=== PATIENT | male | born 1940 | race Caucasian/White ===

== ENCOUNTER 2020-03-09 20:13 | Observation (INO) | payer OTHER ==
--- OUTSIDE RECORDS SUMMARY | 2020-03-09 20:16 | XMS REPORT ---
:1939 Author Organization [facility] t Address 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 involving involving [place] ag[place]agux coronary 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[place] heart, heart, angina angina presence presence unspecified unspecified S/P S/P Problem Active coronary coronary artery artery stent stent placement placement Uncontrolle Uncontrolle Problem Active 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 Medications Ordered Filled Start Stop Current Ordering Indication Dosage Frequency Signature Comments Components Medication Medication Date Date Medication? Clinician (SIG) Name Name Potassium Potassium Yes Anneliese 1 capsule Chloride Chloride Millender with food Tylenol # 3 Tylenol # 3 Yes Anneliese one tab Millender Vitamin D-3 Vitamin D-3 Yes Anneliese 2 capsul e Millender Humalog Humalog Yes Anneliese as Millender directed Aspir-Low Aspir-Low Yes Anneliese 1 tablet Millender Namzaric Namzaric Yes Anneliese 1 Millender Zyprexa Zyprexa Yes Anneliese 1 tablet Millender Vitamin B-1 Vitamin B-1 Yes Anneliese 1 tablet Millender Multivitami Multivitami Yes Anneliese as n n Millender directed Lantus Lantus Yes Anneliese as Millender directed Lasix Lasix Yes Anneliese 1 tablet Millender Isosorbide Isosorbide Yes Anneliese 1 tablet Mononitrate Mononitrate Millender in t he morning Lyrica Lyrica Yes Anneliese 1 capsule Millender Encounters Start End Encounter Admission Attending Care Care Encounter Date/Time Date/Time Type Type Clinicians Facility Department ID 2019-10-07 2019-10-07 Outpatient Stalin Gant [id number] 10:48:00 10:48:00 [facility] 2019-10-05 2019-10-05 Outpatient Brazkenna Connellt [id number] 16:06:00 16:06:00 [facility] 2019-07-12 2019-07-12 Outpatient Brazjulianot Brazjulianot [id number] 16:24:00 16:24:00 [facility] 2019-07-06 2019-07-06 Outpatient Brazjulianot Brazjulianot 2 [id number] 14:00:00 14:00:00 [facility]
--- OUTSIDE RECORDS SUMMARY | 2020-03-09 20:16 | XMS REPORT ---
:1939 Author Organization eClinicalWorks Care Team Providers Name Role Phone Anneliese Batista Provider Role Unavailable Allergies, Adverse Reactions, Alerts Substance Reaction Event Type N.K.D.A. Info Not Available Non Drug Allergy Problems Problem Type Condition Code Onset Dates Condition Statu s Problem Routine eye exam Z01.00 Active Problem On home oxygen therapy Z99.81 Activ e Problem Coronary artery disease involving I25.10 Active [place] coronary artery of [place] heart, angina presence unspecified Problem History of prostate cancer Z85.46 A ctive Assessment Blurry vision, bilateral H53.8 Act stefany Problem Alzheimer disease G30.9 Active Assessment Routine eye exam Z01.00 Active Assessment Need for dental care Z91.89 Active Problem Diabetes E11.9 Active Problem Heart disease I51.9 Active Problem Heart attack I21.3 Active Problem Blurry vision, bilateral H53.8 Act stefany Problem Chronic pain syndrome G89.4 Active Assessment Uncontrolled type 2 diabetes E11.65 Active mellitus with hyperglycemia Assessment On home oxygen therapy Z99.81 Activ e Assessment History of prostate cancer Z85.46 A ctive Assessment Chronic pain syndrome G89.4 Active Problem S/P coronary artery stent placement Z95.5 Active Assessment S/P coronary artery stent placement Z95.5 Active Problem Uncontrolled type 2 diabetes E11.65 Active mellitus with hyperglycemia Assessment Coronary artery disease involving I25.10 Active [place] coronary artery of [place] heart, angina presence unspecified Problem Need for dental care Z91.89 Active Medications Medication Code Code Instructions Start End Status Dosage System Date Date Potassium NDC 61993553779 10 MEQ Orally Active 1 ca psule Chloride Twice a day with food Tylenol # 3 NDC 0 300/30mg PO BID Active [place] [address] 1000 UNIT Active 2 caps ule Orally Once a day Humalog ND 13905136246 100 UNIT/ML Active as direc diamante Subcutaneous 10 units with each meal (3x daily) Aspir-Low ND 57131475844 81 MG Orally Active 1 tab let Once a day Namzaric ND 80478674697 28 mg/10 mg Active 1 Orally daily Zyprexa [facility] 09546196311 2.5 MG Orally Active 1 tabl et Once a day Vitamin B-1 [facility] 13246646626 100 MG Orally Active 1 tablet Once a day Multivitamin [facility] [address]99-20139 - Orally Active as dir ected Lantus [facility] 86582099026 100 UNIT/ML Active as direc diamante Subcutaneous 40 units once daily Lasix [facility] 38075788829 40 MG Orally Active 1 table t Once a day Isosorbide [facility] 88638689316 60 MG Orally Active 1 ta blet in Mononitrate Once a day the morni ng Lyrica [facility] 98281934164 150 MG Orally Active 1 caps ule Once a day Results No Known Results Summary Purpose eClinicalWorks Submission
--- OUTSIDE RECORDS SUMMARY | 2020-03-09 20:16 | XMS REPORT | Summary of Care ---
:1939 Author Organization [facility] - Health Address [address] [place] [address] Care Team Providers Name Role Phone Unavailable Primary Care Provider Unavailable Encounter Details Date Type Department Care Team Description 07/12/2019 Orders Only [facility] Doctor Unassigned, [address] [facility] [place] [address] [address] [place] [address] Allergies No Known Allergiesdocumented as of this encounter (statuses as of 07/21/2019) Medications Medication Sig Dispensed Refills Start Date End Date Status memantine-donepezil Take 1 capsule by 0 Active (NAMZARIC) 28-10 mg mouth daily. CSpX enoxaparin injection inject 30 mg under 0 Active the skin. folic acid/vit B Take by mouth. 0 Active complex and C (B COMPLEX-VITAMIN C-FOLIC ACID ORAL) potassium chloride Take 20 mEq by mouth 0 Active 20 mEq packet daily. Cholecalciferol, Take by mouth. 0 Active Vitamin D3, 2,000 unit capsule metoprolol tartrate Take 12.5 mg by 0 Active 12.5 mg mouth 2 (two) times daily. MULTIVITAMIN ORAL Take by mouth. 0 Active thiamine (VITAMIN Take 100 mg by mouth 0 Active B-1) 100 mg tablet daily. aspirin 81 mg Take 81 mg by mouth 0 Active chewable tablet daily. atorvastatin 40 mg Take 40 mg by mouth 0 Active tablet at bedtime. furosemide 40 mg Take 40 mg by mouth 0 Active tablet daily. NaCl 0.9% (NS) Soln Inject 10 mL 0 Active 10 mL with sodium intravenously once chloride 2.5 mEq/mL now. SolP 17.125 mEq Insulin Glargine 100 inject 18-24 Units 0 03/25/2019 Active unit/mL (3 mL) under the skin every injectionIndications morning. : Uncontrolled type 2 diabetes mellitus with hyperglycemia insulin lispro, inject 4 Units under 0 03/25/2019 Active human, 100 unit/mL the skin 3 (three) injectionIndications times daily before : Uncontrolled type meals. 2 diabetes mellitus with hyperglycemia documented as of this encounter (statuses as of 07/21/2019) Active Problems Problem Noted Date CHF exacerbation 01/02/2019 Essential hypertension 01/02/2019 Type 2 diabetes mellitus without complication, without long-term current 01/02/2019 use of insulin Acute on chronic systolic CHF (congestive heart failur e) 12/13/2018 Elevated troponin I level 12/12/2018 DE LA CRUZ (dyspnea on exertion) 12/12/2018 Coronary artery disease involving [place] coronary ailin ry of [place] heart 12/12/2018 with angina pectoris Stage 3 chronic kidney disease 12/12/2018 NSTEMI (non-ST elevated myocardial infarction) 019 Diabetic polyneuropathy associated with type 2 diabete s mellitus 02/23/2017 documented as of this encounter (statuses as of 07/21/2019) Social History Tobacco Use Types Packs/Day Years Used Date Former Smoker Smokeless Tobacco: Never Used Alcohol Use Drinks/Week oz/Week Comments No Sex Assigned at Date Recorded Not on file Job Start Date Occupation Industry Not on file Not on file Not on file Travel History Travel Start Travel End No recent travel history available. documented as of this encounter Last Filed Vital Signs Not on filedocumented in this encounter Plan of Treatment Date Type Specialty Care Team Description 11/02/2019 Office Visit Endocrinology Diabetes & Mal Larsen MD Metabolism [address] [place], [place] [id number] Health Maintenance Due Date Last Done Comments EYE EXAM 1950 LDL-C 1950 URINE MICROALBUMIN 1949 DTaP,Tdap,and Td Vaccines (1 - 1958 Tdap) Zoster Recombinant Vaccine 1989 (SHINGRIX) (1 of 2) Medicare Wellness Visit 2004 PNEUMOCOCCAL VACCINES 65+ (1 of 2 2004 - PCV13) INFLUENZA VACCINE (Retired 07/17/2019 version) HgA1C 09/25/2019 03/25/2019, 12/11/2018 LUNG CANCER SCREEN: Recommended 12/12/2019 12/12/2018 for age 55-80 with 30 + pack year history CREATININE (SERUM) 01/03/2020 01/03/2019, 01/02/2019, 12/13/2018, Additional history exists FOOT EXAM 01/22/2020 01/21/2019, 01/21/2019, 12/24/2018, Additional history exists documented as of this encounter Procedures Procedure Name Priority Date/Time Associated Diagnosis Comme nts AUTHORIZATION FOR RELEASE Routine 07/12/2019 12:01 AM OF PHI CDT documented in this encounter Results Not on filedocumented in this encounter Insurance Payer Benefit Plan / Subscriber ID Effective Phone Address T ype Group Dates [facility] [id number] 2019-Pres [facility] - HEALTHCARE ent Adv HM O MANAGED DUAL COMPLETE MEDICARE HMO MEDICARE MEDICARE PART xxxxxxxxxxx 2004-Pres [phone] Medicare A & B ent [id number] [place] [id number] [facility] MEDICAID OF xxxxxxxxx 2018-Pres [phone] [address] [facility] ent [id number] [place] [address] documented as of this encounter
--- OUTSIDE RECORDS SUMMARY | 2020-03-09 20:17 | XMS REPORT ---
:1939 Author Organization eClinicalWorks Care Team Providers Name Role Phone Lester Anneliese Provider Role Unavailable Allergies No Known Allergies Problems Problem Type Condition Code Onset Dates Condition Statu s Problem Routine eye exam Z01.00 Active Problem On home oxygen therapy Z99.81 Activ e Problem Coronary artery disease involving I25.10 Active [place] coronary artery of [place] heart, angina presence unspecified Problem S/P coronary artery stent placement Z95.5 Active Problem Uncontrolled type 2 diabetes E11.65 Active mellitus with hyperglycemia Problem Need for dental care Z91.89 Active Problem History of prostate cancer Z85.46 A ctive Problem Alzheimer disease G30.9 Active Problem Diabetes E11.9 Active Problem Heart disease I51.9 Active Problem Heart attack I21.3 Active Problem Blurry vision, bilateral H53.8 Act stefany Problem Chronic pain syndrome G89.4 Active Medications No Known Medications Results No Known Results Summary Purpose eClinicalWorks Submission
--- OUTSIDE RECORDS SUMMARY | 2020-03-09 20:17 | XMS REPORT | Summary of Care ---
:1939 Author Organization [facility] Address [address] [place] [address] Care Team Providers Name Role Phone Unavailable Primary Care Provider Unavailable Reason for Visit Reason Comments Refill Request Encounter Details Date Type Department Care Team Description 07/27/2019 Refill [facility] Endocrinology- Kathrin Larsen MD Refill Request [address] Professional Office [place] [id number] [place] [address] [address] [place] [address] Allergies No Known Allergiesdocumented as of this encounter (statuses as of 07/27/2019) Medications Medication Sig Dispensed Refills Start Date End Date Status memantine-donepezi Take 1 capsule by 0 Active l (NAMZARIC) 28-10 mouth daily. mg CSpX enoxaparin inject 30 mg under 0 Active injection the skin. folic acid/vit B Take by mouth. 0 Active complex and C (B COMPLEX-VITAMIN C-FOLIC ACID ORAL) potassium chloride Take 20 mEq by 0 Active 20 mEq packet mouth daily. Cholecalciferol, Take by mouth. 0 Active Vitamin D3, 2,000 unit capsule metoprolol Take 12.5 mg by 0 Act stefany tartrate 12.5 mg mouth 2 (two) times daily. MULTIVITAMIN ORAL Take by mouth. 0 Active thiamine (VITAMIN Take 100 mg by 0 Active B-1) 100 mg tablet mouth daily. aspirin 81 mg Take 81 mg by 0 Ac tive chewable tablet mouth daily. atorvastatin 40 mg Take 40 mg by 0 Active tablet mouth at bedtime. furosemide 40 mg Take 40 mg by 0 Active tablet mouth daily. NaCl 0.9% (NS) Inject 10 mL 0 Ac tive Soln 10 mL with intravenously once sodium chloride now. 2.5 mEq/mL SolP 17.125 mEq insulin lispro, inject 4 Units 0 03/25/2019 Active human, 100 unit/mL under the skin 3 injectionIndicatio (three) times ns: Uncontrolled daily before type 2 diabetes meals. mellitus with hyperglycemia Insulin Glargine inject 30 Units 15 mL 1 07/27/2019 Active 100 unit/mL (3 mL) under the skin injectionIndicatio every morning. ns: Uncontrolled type 2 diabetes mellitus with hyperglycemia Insulin Glargine inject 18-24 Units 0 03/25/201910/05 Discontinued 100 unit/mL (3 mL) under the skin 19 injectionIndicatio every morning. ns: Uncontrolled type 2 diabetes mellitus with hyperglycemia documented as of this encounter (statuses as of 07/27/2019) Active Problems Problem Noted Date CHF exacerbation 01/02/2019 Essential hypertension 01/02/2019 Type 2 diabetes mellitus without complication, without long-term current 01/02/2019 use of insulin Acute on chronic systolic CHF (congestive heart failur e) 12/13/2018 Elevated troponin I level 12/12/2018 DE LA CRUZ (dyspnea on exertion) 12/12/2018 Coronary artery disease involving [place] coronary ailin ry of [place] heart 12/12/2018 with angina pectoris Stage 3 chronic kidney disease 12/12/2018 NSTEMI (non-ST elevated myocardial infarction) 019 Diabetic polyneuropathy associated with type 2 diabete s mellitus 02/23/2017 documented as of this encounter (statuses as of 07/27/2019) Social History Tobacco Use Types Packs/Day Years [...] Description 11/02/2019 Office Visit Endocrinology Diabetes & Larsen, We ntong, MD Metabolism [address] [place] [address] [phone] Health Maintenance Due Date Last Done Comments EYE EXAM 1949 LDL-C 1949 URINE MICROALBUMIN 1949 DTaP,Tdap,and Td Vaccines (1 - 1958 Tdap) Zoster Recombinant Vaccine 1989 (SHINGRIX) (1 of 2) Medicare Wellness Visit 2004 PNEUMOCOCCAL VACCINES 65+ (1 of 2 2004 - PCV13) INFLUENZA VACCINE (#1) 2019 HgA1C 09/25/2019 03/25/2019, 12/11/2018 LUNG CANCER SCREEN: Recommended 12/12/2019 12/12/2018 for age 55-80 with 30 + pack year history CREATININE (SERUM) 01/03/2020 01/03/2019, 01/02/2019, 12/13/2018, Additional history exists FOOT EXAM 01/22/2020 01/21/2019, 01/21/2019, 12/24/2018, Additional history exists documented as of this encounter Results Not on filedocumented in this encounter Visit Diagnoses Diagnosis Uncontrolled type 2 diabetes mellitus wi th hyperglycemia documented in this encounter Insurance Payer Benefit Plan / Subscriber ID Effective Phone Address T e Group [facility] [id number] 2019-Pres [facility] - HEALTHCARE ent Adv HM O MANAGED DUAL COMPLETE MEDICARE HMO MEDICARE MEDICARE PART xxxxxxxxxxx 2004-Pres [phone] Medicare A & B ent [id number] [place] [phone] [facility] MEDICAID OF xxxxxxxxx 2018-Pres [phone] [address] Medi caid [place] ent [id number] [place] [address] documented as of this encounter
--- OUTSIDE RECORDS SUMMARY | 2020-03-09 20:17 | XMS REPORT ---
:1939 Author Organization eClinicalWorks Care Team Providers Name Role Phone Lester Anneliese Provider Role Unavailable Allergies No Known Allergies Problems Problem Type Condition Code Onset Dates Condition Statu s Problem Routine eye exam Z01.00 Active Problem On home oxygen therapy Z99.81 Activ e Problem Coronary artery disease involving I25.10 Active [place] coronary artery of [place] heart, angina presence unspecified Problem S/P coronary [...]
--- OUTSIDE RECORDS SUMMARY | 2020-03-09 20:19 | XMS REPORT | Summary of Care ---
:1939 Author Organization [facility] - Health Address [address] [place] [address] Care Team Providers Name Role Phone MD Trang Primary Care Provider Reason for Visit Reason Comments Transition Of Care Encounter Details Date Type Department Care Team Description 01/18/2020 Transition of Care [facility] Ana M Harvey, policy intern Of Care Health [facility] [address] [place] [address] Allergies No Known Allergiesdocumented as of this encounter (statuses as of 01/18/2020) Medications Medication Sig Dispensed Refills Start Date End Date Status memantine-donepezil Take 1 capsule by 0 Active (NAMZARIC) 28-10 mg mouth daily. CSpX folic acid/vit B Take by mouth. 0 [...] by mouth 0 Active tablet at bedtime. NaCl 0.9% (NS) Soln Inject 10 mL 0 Active 10 mL with sodium intravenously once chloride 2.5 mEq/mL now. SolP 17.125 mEq insulin lispro, inject 4 Units 0 03/25/2019 Active human, 100 unit/mL under the skin 3 injectionIndications (three) times daily : Uncontrolled type before meals. 2 diabetes mellitus with hyperglycemia Insulin Glargine 100 inject 30 Units 15 mL 1 07/27/2019 Active unit/mL (3 mL) under the skin injectionIndications every morning. : Uncontrolled type 2 diabetes mellitus with hyperglycemia magnesium oxide 420 Take 400 mg by 30 tablet 0 09/07/2019 Active mg TabIndications: mouth daily. Elevated troponin furosemide 40 mg Take 1 tablet by 30 tablet 0 09/10/2019 Active tabletIndications: mouth daily. Elevated troponin ranolazine 500 mg 12 Take 1 tablet by 60 tablet 0 01/17/2020 0 02/16/2020 Active hr mouth every 12 tabletIndications: (twelve) hours for Chest pain, 30 days. 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 01/16/2020 Left lower lobe pneumonia 09/21/2019 PNA (pneumonia) 09/09/2019 Acute on chronic combined systolic and diastolic conge stive heart failure 09/09/2019 Dyspnea 09/07/2019 CHF exacerbation 01/02/2019 Essential hypertension 01/02/2019 Type 2 diabetes mellitus without complication, without long-term current 01/02/2019 use of insulin Acute on chronic systolic CHF (congestive heart failur e) 12/13/2018 Elevated troponin I level 12/12/2018 DE LA CRUZ (dyspnea on exertion) 12/12/2018 Coronary artery disease involving [place] coronary ailin ry of [place] heart 12/12/2018 with angina pectoris Stage 3 chronic kidney disease 12/12/2018 NSTEMI (non-ST elevated myocardial infarction) 019 Diabetic polyneuropathy associated with type 2 diabete s mellitus 02/23/2017 documented as of this encounter (statuses as of 01/18/2020) Immunizations Name Administration Dates Next Due Influenza Virus Vaccine 09/09/2018 Pneumococcal Polysaccharide, PPSV23 (PNEUMOVAX) 11/02/2016 documented as of this encounter Social History Tobacco Use Types Packs/Day Years [...] Treatment Date Type Specialty Care Team Description 02/15/2020 Office Visit Endocrinology Diabetes & Mal Larsen MD Metabolism [address] [place], [place] [id number] Health Maintenance Due Date Last Done Comments EYE EXAM 1950 URINE MICROALBUMIN 1949 DTaP,Tdap,and Td Vaccines (1 - 1950 Tdap) Zoster Recombinant Vaccine 1989 (SHINGRIX) (1 of 2) Medicare Wellness Visit 2004 PNEUMOCOCCAL VACCINES 65+ (2 of 2 11/02/2017 11/02/2016 - PCV13) INFLUENZA VACCINE (#1) 2019 09/09/2018 LUNG CANCER SCREEN: Recommended 12/12/2019 12/12/2018 for age 55-80 with 30 + pack year history FOOT EXAM 01/22/2020 01/21/2019, 01/21/2019, 12/24/2018, Additional history exists HgA1C 07/17/2020 01/15/2020, 09/06/2019, 03/25/2019, Additional history exists LDL-C 01/15/2021 01/16/2020 CREATININE (SERUM) 01/16/2021 01/17/2020, 01/15/2020, 09/23/2019, Additional history exists documented as of this encounter Results Not on filedocumented in this encounter Insurance Payer Benefit Plan / Subscriber ID Effective Phone Address T ype Group Dates [facility] [id number] 2019-Pres [facility] - HEALTHCARE ent Adv HM O MANAGED DUAL COMPLETE MEDICARE HMO [place] MEDICAID OF xxxxxxxxx 2018-Pres [phone] Medi caid [place] ent [id number] [place] [address] documented as of this encounter
--- OUTSIDE RECORDS SUMMARY | 2020-03-09 20:19 | XMS REPORT | Summary of Care ---
:[address] [facility] - Health Address [address] [place] [address] Care Team Providers Name Role Phone MD Trang Primary Care Provider Reason for Referral (ADAMA) Status Reason Specialty Diagnoses / Referred By Referred To Procedures Contact Contact New Request IM-CARDIOVASCULA Diagnoses Chest pain, unspecified type Ivory Leon, R DISEASE Procedures Discharge Follow-Up: Specialty Service IM-CARDIOVASCULAR DISEASE (Dr. Prieto); [address] [place] [address]. [address] [place] [address] (Routine) Status Reason Specialty Diagnoses / Referred By Contact Refe rred To Procedures Contact New Request Diagnoses Chest pain, unspecified type Ivory Leon MD Attar, Mohammed, Procedures Discharge Follow-up: PCP MASOUD PRIETO; 3-[address] [place] [address] [place] [address] [address] [place], [place] [address] [address] Phone: [place] [address] Fax: Radiology Services (STAT) Status Reason Specialty Diagnoses / Referred By Referred To Procedures Contact Contact New Request Diagnostic Diagnoses Chest pain, unspecified type Charanjit Heck, Radiology Procedures Chest [address] [place] [address] [address] [place] [address] Reason for Visit Reason Comments Chest Pain Auth/Cert Status Reason Specialty Diagnoses / Referred By Referred To Procedures Contact Contact Emergency Medicine [facility] Dept [address] [place] [address] Fax: Encounter Details Date Type Department Care Team Description 01/15/2020 - Hospital ADC Medicine Charanjit Heck MD [address] [place] [address] [address] [place], [place] [id number] NSTEMI (non-ST 01/17/2020 Encounter Surgery Unit Carrie Adorno MD [address] [place] [address]. 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 02/23/2017 documented as of this encounter (statuses as of 01/17/2020) Immunizations Name Administration Dates Next Due Influenza [...] of this encounter Last Filed Vital Signs Vital Sign Reading Time Taken Comments Blood Pressure 116/78 01/17/2020 3:08 PM SEGMENT BLOCK LAYER Pulse 88 01/17/2020 3:08 PM SEGMENT BLOCK LAYER Temperature 36.7 C (98.1 F) 01/17/2020 3:08 PM SEGMENT BLOCK LAYER Respiratory Rate 18 01/17/2020 3:08 PM SEGMENT BLOCK LAYER Oxygen Saturation 98% 01/17/2020 3:08 PM SEGMENT BLOCK LAYER Inhaled Oxygen Concentration - - Weight 83.5 kg (184 lb) 01/15/2020 10:35 PM SEGMENT BLOCK LAYER Height 172.7 cm (5' 8") 01/16/2020 12:21 AM SEGMENT BLOCK LAYER Body Mass Index 27.98 01/15/2020 10:35 PM SEGMENT BLOCK LAYER documented in this encounter Discharge Instructions AttachmentsThe following attachments cannot be sent through Care Everywhere. Ranolazine tablets, extended release (Faroese)documented in this encounter Progress Notes Ally Parkinson MD - 01/17/2020 8:[address] [facility] Cardiology progress note Date of Service: 01/17/2020 Demetrius Sarmiento is an 79 years old male hospitalized for chest pain and troponin elevation. No chest pain. PHYSICAL EXAM Vitals: 01/16/20 2302 01/17/20 0321 01/17/20 0721 01/17/20 0731 BP: 109/69 106/68 111/74 Pulse: 88 78 79 Resp: Temp: 36.3 C (97.3 F) 36.6 C (97.9 F) 36.6 C (97.9 F) TempSrc: Tympanic Tympanic Tympanic SpO2: 90% 95% 98% 98% Weight: Height: Date 01/17/20 0700 - 01/18/20 0659 Shift 5705-3444 3959-9103 1015-3198 24 Hour Total INTAKE Shift Total OUTPUT Urine(mL/kg/hr) 100 100 Shift Total 100 100 Weight (kg) 83.5 83.5 83.5 83.5 General: alert; no apparent distress HEENT: normocephalic atraumatic Neck: supple, no lymphadenopathy, no bruits, no JVD Lungs: clear to auscultation bilaterally Cardio: S1, S2, normal rate, regular; no murmurs, rubs or gallops Abdomen: non-distended : not examined Rectal: not examined Extremities: no clubbing, cyanosis, or edema Skin: no rashes Neuro: no focal deficits Medications: I have reviewed the patient's medications; see Medication Reconciliation. Labs: I have reviewed the patient's labs. 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 Underlying significant CAD. Will continue IV heparin for [address] Prieto. Treatment is challenging given relative low BP. Added ranexa. Chest pain resolved. Chronic HFrEF--No significant volume overload. Will continue maintenance dose of PO lasix as tolerated. On metoprolol. Off lisinopril/spironolactone. Consider to restart if BP tolerates. Low salt diet.Fluid restriction. CAD--h/o PCI. On lipitor/metoprolol. On ASA 81 mg daily. Significant LAD and RCA disease on medical therapy. Ally Parkinson MD, [facility] Balance Wheel Motion Inspector, Division of Cardiology [facility] Carolee Mays RN - 01/16/2020 5:37 PM Kael HERNANDEZ Wei, MD, after reviewing this case with the White [employer]her, I concur this case is appropriatefor inpatient admission. The change to inpatient admission is based on the level of care this patient is receiving, medical necessity, risks associated and the expected duration of stay. The inpatient admission order has been entered. Carolee Landrum RN Utilization Review Nurse Modesta Montoya LBSW - 01/16/2020 11:06 AM CSTSubjective Patient ID: Demetrius Sarmiento is a 79 year old male. Care Management Social Functional Assessment Patient Name: Demetrius Sarmiento Age: [age] year old Sex: male Patient's Previous Admission Date at [facility]: 09/21/2019 Current diagnosis and co-morbidities: NSTEMI Readmission Questions: Was patient discharged from any acute care hospital within the last 30 days: No Social Functional Assessment: Primary language spoken/preferred: Faroese Mental Status: Alert & Oriented to Person,Place & Time Information given by: Self Patient's support system: Child Name and number of support system: Ciera Sarmiento, dtr [phone] and Tiffany Sarmiento, dtr [phone] Primary Fur Feeder: Self MPOA: No Living Arrangement: Home Address of living arrangement : [place] [address] Persons living in home: Self Barriers to returning home: None Baseline functional status- ambulation: Independent Functional status-baseline personal care: Independent Baseline functional status- driving: Requires minimal to moderate assistance Baseline functional status- grocery shopping: Requires minimal to moderate assistance Functional status-baseline housekeeping: Requires minimal to moderate assistance Functional status-baseline meal prep: Requires minimal to moderate assistance Current functional status same as prior: Yes Do you have a PCP?: Yes Name of PCP: Dr Prieto Home Health Care Agency: No Provider Services: No DME Company: No Equipment: Walker;Shower Chair Hemodialysis: No Community resources utilized: None Funding Resources: Medicare Replacement;Medicaid Prescription coverage plan: Medicaid-3 slots Pharmacy where meds are filled: Other Other pharmacy: [facility] Anticipated services prior to disharge: Continue Medical Eval Expected mode of discharge transportation: Same as support system Additional Recommendations for DC: medical clearance Additional info required for discharge planning: Pending medical evaluation Recommended discharge plan: Home with new Home Health;Home SFA Complete: Social Functional Assessment complete: Yes Alcohol Use Screening (AUDIT-C) How often do you have a drink containing alcohol?: Never SCORE: 0 Did patient elect to have resources provided: No Role of Care Management explained. Any issues or concerns with obtaining/affording your medications at home: no. Are you or your support system able to order picker/assembler medications at discharge: yes. Review of Systems Objective Physical Exam Assessment/Plan Home with new home health for PT and medication management ARIEL Grider Shake Cutter - Care Management [facility] [phone] [email or web address] Alessandra Luna, RD - 01/16/2020 10:55 AM CST MEDICAL NUTRITION THERAPY- CONSULT NOTE: Reason For Consultation: motor coach driver for positive initial nutrition screen: eating, disease severity, age Malnutrition Assessment: Nutritional Diagnosis: None SGA Rating: Well-Nourished, Normal Plan: Encourage adequate oral intake, change diet to cardiac/diabetic 1800 calorie diet Admission Chief Complaint: had concerns including Chest Pain. 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 has a past surgical history that includes nerve stimulator insertion and nephrectomy. GI and Nutrition Related Findings: Symptoms: N/A Difficulty: N/A GI tract alteration: N/A Alternative means of nutrition: N/A General: N/A Medications: Current Facility-Administered Medications: acetaminophen (TYLENOL) tablet 650 mg, 650 mg, Oral, Q6HPRN, Carrie Adorno MD aspirin chewable tablet 81 mg, 81 mg, Oral, DAILY, Carrie Adorno MD, 81 mg at 01/16/20 0928 atorvastatin (LIPITOR) tablet 40 mg, 40 mg, Oral, QHS, Carrie Adorno MD dextrose 50 % in water (D50W) injection 25 mL, 25 mL, Slow IV Push, PRN, Carrie Adorno MD furosemide (LASIX) tablet 40 mg, 40 mg, Oral, DAILY, Carrie Adorno MD, 40 mg at 01/16/20 0928 glucagon (GLUCAGEN DIAGNOSTIC KIT) injection 1 mg, 1 mg, Intramuscular, PRN, Carrie Adorno MD insulin glargine (LANTUS U-100) injection 30 Units, 30 Units, Subcutaneous, DAILY, Carrie Adorno MD, 30 Units at 01/16/20 0929 metoprolol tartrate (LOPRESSOR) tablet 12.5 mg, 12.5 mg, Oral, BID, Carrie Adorno MD, 12.5 mgat 01/16/20 0928 morpHINE injection 2 mg, 2 mg, Slow IV Push, Q6HPRN, Carrie Adorno MD nitroglycerin (NITROSTAT) sublingual tablet 0.4 mg, 0.4 mg, Sublingual, Q5MIN PRN, Carrie Adorno MD ondansetron (ZOFRAN (PF)) injection 4 mg, 4 mg, Slow IV Push, Q6HPRN, Carrie Adorno MD Sliding Scale Insulin-Regular + Fsbg Testing, , Subcutaneous, Q6H, Carrie Adorno MD traMADol (ULTRAM) tablet 50 mg, 50 mg, Oral, Q8HPRN, Carrie Adorno MD heparin 25,000 unit/250 mL (Premixed Bag) in NaCl 0.45 % weight based dosing ACS protocol, 1,000 Units/hr, IV Infusion, CONTINUOUS, Charanjit Heck MD, Last Rate: 7 mL/hr at 01/16/20 0807, 700 Units/hr at 01/16/20 0807 Lab and Medical Test Results: NA (mmol/L) Date Value 01/15/2020 136 K (mmol/L) Date Value 01/15/2020 4.0 CALCIUM (mg/dL) Date Value 01/15/2020 8.8 CL (mmol/L) Date Value 01/15/2020 101 BUN (mg/dL) Date Value 01/15/2020 17 CREATININE (mg/dL) Date Value 01/15/2020 1.29 (H) GLUCOSE (mg/dL) Date Value 01/15/2020 445 (H) CO2 TOTAL (mmol/L) Date Value 01/15/2020 27 ALBUMIN (g/dL) Date Value 01/15/2020 3.9 T PROTEIN (g/dL) Date Value 01/15/2020 6.3 TOTAL BILI (mg/dL) Date Value 01/15/2020 1.3 (H) BILI UNCON (mg/dL) Date Value 01/15/2020 1.1 BILI CONJ (mg/dL) Date Value 01/15/2020 0.0 ALT(SGPT) (U/L) Date Value 08/18/2019 19 ALTv (U/L) Date Value 01/15/2020 15 AST(SGOT) (U/L) Date Value 01/15/2020 23 ALK PHOS (U/L) Date Value 01/15/2020 67 Nutrition Assessment: Age: [age] year old Sex: male Ht: Ht Readings from Last 3 Encounters: 01/16/20 1.727 m (5' 8") 11/02/19 1.727 m (5' 8") 09/21/19 1.727 m (5' 8") Current Wt: Wt Readings from Last 1 Encounters: 01/15/20 83.5 kg (184 lb) BMI: Body mass index is 27.98 kg/m. (Overweight) Weight History: Wt Readings from Last 10 Encounters: 01/15/20 83.5 kg (184 lb) 11/02/19 83.6 kg (184 lb 3.2 oz) 09/22/19 83 kg (182 lb 14.4 oz) 09/10/19 82 kg (180 lb 11.2 oz) 09/07/19 101.6 kg (224 lb) 08/18/19 83.5 kg (184 lb) 03/25/19 85.7 kg (189 lb) 01/21/19 87.4 kg (192 lb 9.6 oz) 01/03/19 85.4 kg (188 lb 4 oz) 12/24/18 87.5 kg (192 lb 12.8 oz) Inflammatory Markers: Hyperglycemia Current Dietary Order(s): Orders Placed This Encounter Procedures Cardiac (2 gm Sodium, Low Fat, Low Cholesterol) Diet; Texture: Regular. EMR Documented Food Allergies/Intolerance/Cultural Preferences: None per patient No Known Allergies Nutrition & Diet History: Patient with pmh of alzheimer's, difficult to obtain history. Patient with weight gain since last admit in September 2019. Stable weight since October 2019. He appears well nourished at this time. Patient with type 2 diabetes, glucose was 445 mg/dL on admit, and HGBA1C was 12.8%. RN reports patient drinks monster energy drinks at home & has a lot of sugar. He ate all of his AM snack from flowsheet, and had about 1/2 of his breakfast this morning at visit. He reports no problems chewing/swallowing his foods. RD will continue to monitor. Education: Formal education inappropriate at this time d/t patient's AMS. RD encouraged adequate oral intake. Calculated Daily Nutritional Needs: Calories: 0832-8376 kcal/day = 22-25 kcal/kg current wt = MSJ x 1.2-1.3 Protein: 20% of kcal need/day = 90-100 g/day =1.1-1.2 g/kg current wt Carbohydrates: 50% of kcal need/day = 225-250 g/day (15-17 carbohydrate exchanges per day) Fluid: 6774-4430 mL/day or per MD. Adjust for acute needs. Nutrition Diagnosis: PES #1: Altered nutrition related laboratory values related to type 2 diabetes as evidenced by glucose of 445 mg/dL on admit, and HGBA1C of 12.8% Nutrition Intervention(s): Interventions: 1. Recommend changing diet to cardiac/diabetic 1800 calorie diet 2. Encouraged adequate oral intake 3. Will monitor diet tolerance, intake, and nutrition related labs Goals: 1. The pt's documented intake is no less than 75% of provided meals 2. Target glucose range of less than or equal to 140-180 mg/dL D/C Planning: Heart healthy carbohydrate consistent diet with 3-5 servings of carbohydrates per meal, and 1-2 servings of carbohydrates per snack. Fluid restriction per MD. 2 g sodium or less/day. Nutrition Monitoring and Evaluation: A registered dietitian will f/u in 3-4 days to report nutrition related information and to revise the recommended nutrition intervention(s) if necessary; please page with questions or concerns, thank-you. Alessandra Strickland RD,LD RD Office: [phone] signed by Alessandra Strickland RD at 01/16/2020 11:14 AM CSTdocumented in this encounter Plan of Treatment Date Type Specialty Care Team Description 02/15/2020 Office Visit Endocrinology Diabetes & Mal Larsen MD Metabolism [address] [place] [address] Name Type Priority Associated Diagnoses Order S chedule CBC with Differential LAB Routine EVERY MORNING AT 0400 for 3 Occurrences s tarting 01/17/2020 unti l 01/19/2020, 1 c ompleted Basic Metabolic Panel LAB Routine EVERY MORNING AT 0400 for (NA, K, CL, CO2, GLUCOSE, 3 Occurrences starting BUN, CREATININE, CA) 020 until 01/19/2020, 1 c ompleted TROPONIN I LAB Routine EVERY 6 HOURS ( START TIME ADJUSTABLE) STA RT TIME ADJUSTABLE for 2 Days starting 2019 until 01/17/2020, 4 c ompleted aPTT Per Heparin testing LAB Routine FOR FOLLOW-UP TESTING until discontin ued starting 2019 Health Maintenance Due Date Last Done Comments [...] 07/17/2020 01/15/2020, 09/06/2019, 03/25/2019, Additional history exists CREATININE (SERUM) 01/14/2021 01/15/2020, 09/23/2019, 09/22/2019, Additional history exists LDL-C 01/15/2021 01/16/2020 documented as of this encounter Procedures Procedure Name Priority Date/Time Associated Diagnosis Comme nts POCT GLUCOSE Routine 01/17/2020 12:15 Results for this (AUTOMATED) PM SEGMENT BLOCK LAYER procedure are i n the results section. ACTIVATED PARTIAL Routine 01/17/2020 10:31 Result s for this THRMPLAS JCAEK AM SEGMENT BLOCK LAYER procedure are i n the results section. TROPONIN I Routine 01/17/2020 10:31 Results for this AM SEGMENT BLOCK LAYER procedure are i n the results section. POCT GLUCOSE Routine 01/17/2020 5:56 Results for this (AUTOMATED) AM SEGMENT BLOCK LAYER procedure are i n the results section. CBC WITH DIFFERENTIAL Routine 01/17/2020 3:52 Re sults for this AM SEGMENT BLOCK LAYER procedure are i n the results section. ACTIVATED PARTIAL Routine 01/17/2020 3:52 Result s for this THRMPLAS JACEK AM SEGMENT BLOCK LAYER procedure are i n the results section. CBC WITH DIFFERENTIAL Routine 01/17/2020 3:52 Re sults for this AM SEGMENT BLOCK LAYER procedure are i n the results section. BASIC METABOLIC PANEL Routine 01/17/2020 3:52 Re sults for this (NA, K, CL, CO2, AM SEGMENT BLOCK LAYER procedure a re in GLUCOSE, BUN, the results CREATININE, CA) section. TROPONIN I Routine 01/17/2020 3:52 Results for this AM SEGMENT BLOCK LAYER procedure are i n the results section. POCT GLUCOSE Routine 01/16/2020 5:59 Results for this (AUTOMATED) PM SEGMENT BLOCK LAYER procedure are i n the results section. EKG-12 LEAD Routine 01/16/2020 4:15 PM SEGMENT BLOCK LAYER ACTIVATED PARTIAL Routine 01/16/2020 2:04 Result s for this THRMPLAS JACEK PM SEGMENT BLOCK LAYER procedure are i n the results section. TROPONIN I Routine 01/16/2020 2:04 Results for this PM SEGMENT BLOCK LAYER procedure are i n the results section. POCT GLUCOSE Routine 01/16/2020 11:05 Results for this (AUTOMATED) AM SEGMENT BLOCK LAYER procedure are i n the results section. POCT GLUCOSE Routine 01/16/2020 7:38 Results for this (AUTOMATED) AM SEGMENT BLOCK LAYER procedure are i n the results section. ACTIVATED PARTIAL Routine 01/16/2020 5:11 Result s for this THRMPLAS JACEK AM SEGMENT BLOCK LAYER procedure are i n the results section. LIPID PANEL Routine 01/16/2020 5:11 Results for this (31015)(TOTAL AM SEGMENT BLOCK LAYER procedure are in CHOLESTEROL, the results TRIGLYCERIDES, HDL) section. TROPONIN I Routine 01/16/2020 5:11 Results for this AM SEGMENT BLOCK LAYER procedure are i n the results section. CRITICAL CARE Routine 01/15/2020 11:48 Results fo r this PM SEGMENT BLOCK LAYER procedure are i n the results section. XR CHEST 1 VW STAT 01/15/2020 10:46 Chest pain, Results fo r this PM SEGMENT BLOCK LAYER unspecified type procedure a re in the results section. CBC WITH DIFFERENTIAL STAT 01/15/2020 10:38 Chest pain, Re sults for this PM SEGMENT BLOCK LAYER unspecified type procedure a re in the results section. N-TERMINAL PRO-BNP STAT 01/15/2020 10:38 Chest pain, Resul ts for this PM SEGMENT BLOCK LAYER unspecified type procedure a re in the results section. ACTIVATED PARTIAL STAT 01/15/2020 10:38 Chest pain, Result s for this THRMPLAS JACEK PM SEGMENT BLOCK LAYER unspecified type procedure a re in the results section. PROTHROMBIN TIME / STAT 01/15/2020 10:38 Chest pain, Resul ts for this INR PM SEGMENT BLOCK LAYER unspecified type procedure a re in the results section. GLYCOSYLATED Add-on 01/15/2020 10:38 Results for this HEMOGLOBIN (A1C) PM SEGMENT BLOCK LAYER procedure a re in the results section. CBC WITH DIFFERENTIAL Routine 01/15/2020 10:38 Chest pain, Re sults for this PM SEGMENT BLOCK LAYER unspecified type procedure a re in the results section. BASIC METABOLIC PANEL STAT 01/15/2020 10:38 Chest pain, Re sults for this (NA, K, CL, CO2, PM SEGMENT BLOCK LAYER unspecified type procedu re are in GLUCOSE, BUN, the results CREATININE, CA) section. HEPATIC FUNCTION STAT 01/15/2020 10:38 Chest pain, Results for this PANEL (35194) PM SEGMENT BLOCK LAYER unspecified type procedure are in (ALB,T.PRO,BILI the results T,BU/BC,ALT,AST,ALK section. PHOS) TROPONIN I STAT 01/15/2020 10:38 Chest pain, Results for this PM SEGMENT BLOCK LAYER unspecified type procedure a re in the results section. EKG-12 LEAD Routine 01/15/2020 10:37 PM SEGMENT BLOCK LAYER EKG-12 LEAD STAT 01/15/2020 10:35 PM SEGMENT BLOCK LAYER documented in this encounter Results POCT GLUCOSE (AUTOMATED) (01/17/2020 12:15 PM SEGMENT BLOCK LAYER) Pathologist Sig Urbful POCT GLU 290 (H) 70 - 110 mg/dL [facility] Specimen Blood Performing Organization Address [facility] Phone Number [facility] CLIA: [id number], [address] aPTT (01/17/2020 10:31 AM SEGMENT BLOCK LAYER) Pathologist Sig Urbful APTT Patient 40 (H) 23 - 38 Seconds [facility] Specimen Blood - ARM, RIGHT Narrative Performed At The [facility] patient population mean normal value [facility] for aPTT is 30 seconds. Performing Organization Address [facility]ode Phone Number [facility] CLIA: [id number], [address] [address] [address] TROPONIN I (01/17/2020 10:31 AM SEGMENT BLOCK LAYER) Pathologist Sig Urbful TROPONIN I 0.065 (H) <=0.034 ng/mL [facility] Specimen Blood - ARM, RIGHT Narrative Performed At Equal or Less than 0.034 ng/ml---Normal [facility] Note: Cardiac troponin begins to rise 3-4 hours after the onset of ischemia. Repeat in 4-6 hours if the sample was drawn within 3-4 hours of the onset of the symptom and found normal. Between 0.035 and 0.120 ng/mL--- Borderline. Questionable myocardial injury or necros is Note: Serial measurement may be necessary to confirm or exclude the diagnosis of myocardial injury or necrosis; Clinical correlation (symptoms, EKGs, imaging studies, and others) required; Repeat in 4-6 hours if clinically indicated. Equal or Higher than 0.121 ng/mL---Abnormal. Myocardial Injury or Necrosis Likely Biotin has been reported to cause a negative bias, interpret results relative to patient's use of biotin. Performing Organization Address [facility] Phone Number [facility] CLIA: [id number], [address] POCT GLUCOSE (AUTOMATED) (01/17/2020 5:56 AM SEGMENT BLOCK LAYER) [facility] POCT GLU 185 (H) 70 - 110 mg/dL [facility] Specimen Blood Performing Organization Address [facility] Phone Number [facility] CLIA: [id number], [address] aPTT (01/17/2020 3:52 AM SEGMENT BLOCK LAYER) [facility] nature APTT Patient 45 (H) 23 - 38 Seconds [facility] Specimen Blood - ARM, RIGHT Narrative Performed At The [facility] patient population mean normal value [facility] for aPTT is 30 seconds. Performing Organization Address [facility] Phone Number [facility] CLIA: [id number], [address] CBC WITH DIFFERENTIAL (01/17/2020 3:52 AM SEGMENT BLOCK LAYER) [facility] Sig Urbful WBC 6.65 4.20 - 10.70 [facility] 10*3/L HOSPITAL LABORATORY RBC 4.67 4.26 - 5.52 [facility] 10*6/L [facility] HGB 14.2 12.2 - 16.4 g/dL [facility] HCT 41.2 38.4 - 49.3 % [facility] LABORATORY MCV 88.2 81.7 - 95.6 fL [facility] MCH 30.4 26.1 - 32.7 pg [facility] MCHC 34.5 31.2 - 35.0 g/dL [facility] RDW-SD 41.5 38.5 - 51.6 fL [facility] RDW-CV 12.8 12.1 - 15.4 % [facility] PLT 152 150 - 328 [facility] 10*3/L [facility] MPV 10.7 9.8 - 13.0 fL [facility] NRBC/100 WBC 0.0 0.0 - 10.0 /100 [facility] WBCs [facility] LABORATORY NRBC x10^3 <0.01 10*3/L [facility] GRAN MAT (NEUT) % 56.1 % [facility] IMM GRAN % 0.30 % [facility] LYMPH % 29.5 % [facility] MONO % 9.9 % [facility] EOS % 3.3 % [facility] BASO % 0.9 % [facility] GRAN MAT x10^3(ANC) 3.73 1.99 - 6.95 [facility] 10*3/uL HOSPITAL LABORATORY IMM GRAN x10^3 <0.03 0.00 - 0.06 [facility] 10*3/uL HOSPITAL LABORATORY LYMPH x10^3 1.96 1.09 - 3.23 [facility] 10*3/uL HOSPITAL LABORATORY MONO x10^3 0.66 0.36 - 1.02 [facility] 10*3/uL HOSPITAL LABORATORY EOS x10^3 0.22 0.06 - 0.53 [facility] 10*3/uL HOSPITAL LABORATORY BASO x10^3 0.06 0.01 - 0.09 [facility] 10*3/uL HOSPITAL LABORATORY Specimen Blood - ARM, LEFT Performing Organization Address City/State/Zipcode Phone Number [facility] CLIA: [id number], [address], [place] [address] TROPONIN I (01/17/2020 3:52 AM SEGMENT BLOCK LAYER) Pathologist Sig nature TROPONIN I 0.073 (H) <=0.034 ng/mL [facility] Specimen Blood - ARM, LEFT Narrative Performed At Equal or Less than 0.034 ng/ml---Normal [facility] Note: Cardiac troponin begins to rise 3-4 hours after the onset of ischemia. Repeat in 4-6 hours if the sample was drawn within 3-4 hours of the onset of the symptom and found normal. Between 0.035 and 0.120 ng/mL--- Borderline. Questionable myocardial injury or necros is Note: Serial measurement may be necessary to confirm or exclude the diagnosis of myocardial injury or necrosis; Clinical correlation (symptoms, EKGs, imaging studies, and others) required; Repeat in 4-6 hours if clinically indicated. Equal or Higher than 0.121 ng/mL---Abnormal. Myocardial Injury or Necrosis Likely Biotin has been reported to cause a negative bias, interpret results relative to patient's use of biotin. Performing Organization Address City/State/Zipcode Phone Number [facility] CLIA: [id number], [address], [place] [address] Basic Metabolic Panel (NA, K, CL, CO2, GLUCOSE, BUN, CREATININE, CA) (01/17/2020 3:52 AM SEGMENT BLOCK LAYER) NA 136 135 - 145 [facility] mmol/L [facility] K 3.3 (L) 3.5 - 5.0 [facility] mmol/L [facility] CL 101 98 - 108 mmol/L [facility] CO2 TOTAL 26 23 - 31 mmol/L [facility] AGAP 9 2 - 16 [facility] BUN 19 7 - 23 mg/dL [facility] GLUCOSE 227 (H) 70 - 110 mg/dL [facility] CREATININE 1.33 (H) 0.60 - 1.25 [facility] mg/dL [facility] LABORATORY CALCIUM 9.1 8.6 - 10.6 [facility] mg/dL [facility] LABORATORY eGFR Calculation 51.7 mL/min/1.73m2 [facility] ([facility] LABORATORY Nauruan) eGFR Calculation 62.7 mL/min/1.73m2 [facility] ([facility]) [facility] LABORATORY Specimen Blood - ARM, LEFT Narrative Performed At [facility] Glomerular Filtration Rate (GFR) [facility] and Staging of Kidney Disease* + + +- + | GFR (mL/min/1.73 m2) | With Kidney Damage | Without Kidney Damage + + +- + | >90 | Stage one | Normal + + +- + | 60-89 | Stage two | Decreased GFR + + +- + | 30-59 | Stage three | Stage three + + +- + | 15-29 | Stage four | Stage four + + +- + | <15 (or dialysis) | Stage five | Stage five + + +- + *Each stage assumes the associated GFR level has been in effect for at least three months. Stages 1 to 5, with or without kidney disease, indicate chronic kidney disease. Notes: Determination of stages one and two (with eGFR >59mL/min/1.73 m2) requires estimation of kidney damage for at least three months as defined by structural or functional abnormalities of the kidney, manifested by either: Pathological abnormalities or Markers of kidney damage (including abnormalities in the composition of the blood or urine or abnormalities in imaging tests). Performing Organization Address [facility] Phone Number [facility] CLIA: [id number], [address] POCT GLUCOSE (AUTOMATED) (01/16/2020 5:59 PM SEGMENT BLOCK LAYER) Pathologist Sig nature POCT GLU 271 (H) 70 - 110 mg/dL [facility] Specimen Blood Performing Organization Address [facility] Cent[facility]ode Phone Number [facility] CLIA: [id number], [address] aPTT (01/16/2020 2:04 PM SEGMENT BLOCK LAYER) Pathologist Sig nature APTT Patient 50 (H) 23 - 38 Seconds [facility] Specimen Blood - ARM, RIGHT Narrative Performed At The [facility] patient population mean normal value [facility] for aPTT is 30 seconds. Performing Organization Address [facility]/[employer] Phone Number [facility] CLIA: [id number], [address] [address] [address] TROPONIN I (01/16/2020 2:04 PM SEGMENT BLOCK LAYER) Pathologist Sig nature TROPONIN I 0.061 (H) <=0.034 ng/mL [facility] Specimen Blood - ARM, RIGHT Narrative Performed At Equal or Less than 0.034 ng/ml---Normal [facility] Note: Cardiac troponin begins to rise 3-4 hours after the onset of ischemia. Repeat in 4-6 hours if the sample was drawn within 3-4 hours of the onset of the symptom and found normal. Between 0.035 and 0.120 ng/mL--- Borderline. Questionable myocardial injury or necros is Note: Serial measurement may be necessary to confirm or exclude the diagnosis of myocardial injury or necrosis; Clinical correlation (symptoms, EKGs, imaging studies, and others) required; Repeat in 4-6 hours if clinically indicated. Equal or Higher than 0.121 ng/mL---Abnormal. Myocardial Injury or Necrosis Likely Biotin has been reported to cause a negative bias, interpret results relative to patient's use of biotin. Performing Organization Address [facility]otx Phone Number [facility] CLIA: [id number], [address] POCT GLUCOSE (AUTOMATED) (01/16/2020 11:05 AM SEGMENT BLOCK LAYER) Pathologist Sig Urbful POCT GLU 305 (H) 70 - 110 mg/dL [facility] Specimen Blood Performing Organization Address [facility] Phone Number [facility] CLIA: [id number], [address] POCT GLUCOSE (AUTOMATED) (01/16/2020 7:38 AM SEGMENT BLOCK LAYER) Pathologist Sig Urbful POCT GLU 271 (H) 70 - 110 mg/dL [facility] Specimen Blood Performing Organization Address [facility] Phone Number [facility] CLIA: [id number], [address] aPTT (01/16/2020 5:11 AM SEGMENT BLOCK LAYER) Pathologist Sig nature APTT Patient 120 (HH) 23 - 38 Seconds [facility] Specimen Blood - ARM, LEFT Narrative Performed At The [facility] patient population mean normal value [facility] for aPTT is 30 seconds. Performing Organization Address [facility] Centercode Phone Number [facility] CLIA: [id number], [address] TROPONIN I (01/16/2020 5:11 AM SEGMENT BLOCK LAYER) Pathologist Sig nature TROPONIN I 0.074 (H) <=0.034 ng/mL [facility] Specimen Blood - ARM, LEFT Narrative Performed At Equal or Less than 0.034 ng/ml---Normal [facility] Note: Cardiac troponin begins to rise 3-4 hours after the onset of ischemia. Repeat in 4-6 hours if the sample was drawn within 3-4 hours of the onset of the symptom and found normal. Between 0.035 and 0.120 ng/mL--- Borderline. Questionable myocardial injury or necros is Note: Serial measurement may be necessary to confirm or exclude the diagnosis of myocardial injury or necrosis; Clinical correlation (symptoms, EKGs, imaging studies, and others) required; Repeat in 4-6 hours if clinically indicated. Equal or Higher than 0.121 ng/mL---Abnormal. Myocardial Injury or Necrosis Likely Biotin has been reported to cause a negative bias, interpret results relative to patient's use of biotin. Performing Organization Address [facility] Phone Number [facility] CLIA: [id number], [address] LIPID PANEL ([id number])(TOTAL CHOLESTEROL, TRIGLYCERIDES, HDL) (01/16/2020 5:11 AM SEGMENT BLOCK LAYER) Pathologist Sig nature CHOL 95 (L) 120 - 200 mg/dL [facility] HDL 44 >40 mg/dL [facility] HDLC RATIO 2.2 <=5.0 [facility] TRIG 89 30 - 170 mg/dL [facility] LDL CHOL 33 <=160 mg/dL [facility] VLDL 18 5 - 60 mg/dL [facility] Specimen Blood - ARM, LEFT Performing Organization Address [facility] Cent[facility]ode Phone Number [facility] CLIA: [id number], [address] [address] [facility] Critical Care (01/15/2020 11:48 PM SEGMENT BLOCK LAYER) Narrative Performed At Charanjit Heck MD 01/15/2020 11:48 PM Critical Care Performed by: Charanjit Heck MD Authorized by: Charanjit Heck MD Critical care provider statement: Critical care time (minutes): 45 Critical care was necessary to treat or prevent imminent or life-threatening deterioration of the fo llowing conditions: Cardiac failure Critical care was time spent personal ly by me on the following activities: Blood draw for specimens, development of treatment plan with patient or surrogate, discussions with c onsultants, evaluation of patient's response to treatment, orderin g and performing treatments and interventions, ordering and review of laboratory studi es, pulse oximetry, ordering and review of radiographic stud ies, re-evaluation of patient's condition, review of old charts and examination of pat ient Chest 1 View (01/15/2020 10:46 PM SEGMENT BLOCK LAYER) Specimen Impressions Performed At Impression: PACS/VR/DOSE Moderate cardiomegaly without acute pulm onary process. RL: [id number] AFC: [id number] Narrative Performed At Indication: Chest pain PACS/VR/DOSE Comparison: None available Findings: Single AP view of the chest. The cardioperic ardial silhouette is moderately enlarged. The lungs are clear bilaterally. The visualized bony thorax is intact. A thoracic neurostimul ator device is in place. Procedure Note [facility], Radiant Results Inft User - 2019 10:55 PM SEGMENT BLOCK LAYER Indication: Chest pain Comparison: None available Findings: Single AP view of the chest. T he cardiopericardial silhouette is moderately enlarged. The lungs are clear bilaterally. The visualized bony thorax is intact. A thoracic neurostimul ator device is in place. IMPRESSION Impression: Moderate cardiomegaly without acute pulm onary process. RL: [id number] AFC: [id number] Performing Organization Address City/State/Zipcode Phone Number PACS/VR/DOSE Glycosylated Hemoglobin (A1C) (01/15/2020 10:38 PM SEGMENT BLOCK LAYER) Pathologist Sig nature HGB A1C 12.8 (H) 4.0 - 6.0 % [facility] L LABORATORY Specimen Blood - VENOUS Narrative Performed At %A1C (NGSP) Interpretation (ADA) [facility] 4.8-5.6 Normal or (Non-Diabetic Ra nge) 5.7-6.4 Increased Risk (Pre-Diabet ic) >6.5 Diabetes Indicated Performing Organization Address City/State/Zipcode Phone Number [facility] CLIA: [id number], [address], [place] [address] CBC WITH DIFFERENTIAL (01/15/2020 10:38 PM SEGMENT BLOCK LAYER) WBC 5.32 4.20 - 10.70 [facility] 10*3/L [facility] RBC 4.21 (L) 4.26 - 5.52 [facility] 10*6/L [facility] HGB 13.0 12.2 - 16.4 [facility] g/dL [facility] LAB[facility]AT[facility] HCT 37.0 (L) 38.4 - 49.3 % [facility] MCV 87.9 81.7 - 95.6 [facility] LABORATORY MCH 30.9 26.1 - 32.7 [facility] LABORATORY MCHC 35.1 (H) 31.2 - 35.0 [facility] g/dL [facility] LABORATORY RDW-SD 40.7 38.5 - 51.6 [facility] LABORATORY RDW-CV 12.8 12.1 - 15.4 % [facility] PLT 147 (L) 150 - 328 [facility] 10*3/L [facility] LAB[facility]ATORY MPV 10.6 9.8 - 13.0 fL [facility] IPF % 2.8Comment: Platelet 1.2 - 10.7 % [facility] count measured by HOSPITAL fluorescence method. LABORATORY NRBC/100 WBC 0.0 0.0 - 10.0 [facility] /100 WBCs [facility] LABORATORY NRBC x10^3 <0.01 10*3/L [facility] GRAN MAT (NEUT) % 56.0 % [facility] IMM GRAN % 0.20 % [facility] LYMPH % 30.5 % [facility] MONO % 9.6 % [facility] EOS % 2.8 % [facility] BASO % 0.9 % [facility] GRAN MAT 2.98 1.99 - 6.95 [facility] x10^3(ANC) 10*3/uL HOSPITAL LABORATORY IMM GRAN x10^3 <0.03 0.00 - 0.06 [facility] 10*3/uL HOSPITAL LABORATORY LYMPH x10^3 1.62 1.09 - 3.23 [facility] 10*3/uL HOSPITAL LABORATORY MONO x10^3 0.51 0.36 - 1.02 [facility] 10*3/uL HOSPITAL LABORATORY EOS x10^3 0.15 0.06 - 0.53 [facility] 10*3/uL HOSPITAL LABORATORY BASO x10^3 0.05 0.01 - 0.09 [facility] 10*3/uL [facility] LABORATORY Specimen Blood - VENOUS Performing Organization Address [facility] Centercode Phone Number [facility] CLIA: [id number], [address] N-TERMINAL PRO-BNP (01/15/2020 10:38 PM SEGMENT BLOCK LAYER) Pathologist Sig nature NT-proBNP 896 (H) <=450 pg/mL [facility] Specimen Blood - VENOUS Narrative Performed At [facility] has been reported to cause a negative [facility] bias, interpret results relative to patient's use of biotin. Performing Organization Address City/[facility] Cent[facility]ode Phone Number [facility] CLIA: [id number], [address] Prothrombin Time (PT) / INR (01/15/2020 10:38 PM SEGMENT BLOCK LAYER) PROTIME PATIENT 13.9 12.0 - 14.7 [facility] LABORATORY INR 1.1Comment: Normal [facility] INR <1.1; Warfarin [facility] Therapeutic range LABORATORY 2.0 to 3.0 or 2.5 to 3.5, depending upon the indications. Specimen Blood - VENOUS Performing Organization Address City/[facility] Phone Number [facility] CLIA: [id number], [address] aPTT (01/15/2020 10:38 PM SEGMENT BLOCK LAYER) Pathologist [facility] APTT Patient 28 23 - 38 Seconds [facility] Specimen Blood - VENOUS Narrative Performed At The [facility] patient population mean normal value [facility] for aPTT is 30 seconds. Performing Organization Address City/[facility] Centercode Phone Number [facility] CLIA: [id number], [address] Troponin I (01/15/2020 10:38 PM SEGMENT BLOCK LAYER) [facility] TROPONIN I 0.075 (H) <=0.034 ng/mL [facility] Specimen Blood - VENOUS Narrative Performed At Equal or Less than 0.034 ng/ml---Normal [facility] Note: Cardiac troponin begins to rise 3-4 hours after the onset of ischemia. Repeat in 4-6 hours if the sample was drawn within 3-4 hours of the onset of the symptom and found normal. Between 0.035 and 0.120 ng/mL--- Borderline. Questionable myocardial injury or necros is Note: Serial measurement may be necessary to confirm or exclude the diagnosis of myocardial injury or necrosis; Clinical correlation (symptoms, EKGs, imaging studies, and others) required; Repeat in 4-6 hours if clinically indicated. Equal or Higher than 0.121 ng/mL---Abnormal. Myocardial Injury or Necrosis Likely Biotin has been reported to cause a negative bias, interpret results relative to patient's use of biotin. Performing Organization Address City/[facility] Phone Number [facility] CLIA: [id number], [address] Hepatic Function Panel (ALB, T.PRO, BILI T, BU/BC, ALT, AST, ALK PHOS) (01/15/2020 10:38 PM SEGMENT BLOCK LAYER) [facility] TOTAL BILI 1.3 (H) 0.1 - 1.1 mg/dL [facility] BILI UNCON 1.1 0.1 - 1.1 mg/dL [facility] BILI CONJ 0.0 0.0 - 0.3 mg/dL [facility] T PROTEIN 6.3 6.3 - 8.2 g/dL [facility] ALBUMIN 3.9 3.5 - 5.0 g/dL [facility] ALK PHOS 67 34 - 122 U/L [facility] ALTv 15 5 - 50 U/L [facility] AST(SGOT) 23 13 - 40 U/L [facility] Specimen Blood - VENOUS Performing Organization Address City/State/Zipcode Phone Number [facility] CLIA: [id number], [address], [place] [address] Basic Metabolic Panel (NA, K, CL, CO2, GLUCOSE, BUN, CREATININE, CA) (01/15/2020 10:38 PM SEGMENT BLOCK LAYER) NA 136 135 - 145 [facility] mmol/L [facility] LABORATORY K 4.0 3.5 - 5.0 [facility] mmol/L [facility] LABORATORY CL 101 98 - 108 mmol/L [facility] CO2 TOTAL 27 23 - 31 mmol/L [facility] AGAP 8 2 - 16 [facility] BUN 17 7 - 23 mg/dL [facility] GLUCOSE 445 (H) 70 - 110 mg/dL [facility] CREATININE 1.29 (H) 0.60 - 1.25 [facility] mg/dL [facility] LABORATORY CALCIUM 8.8 8.6 - 10.6 [facility] mg/dL [facility] LABORATORY eGFR Calculation 53.6 mL/min/1.73m2 [facility] ([facility] LABORATORY Nauruan) eGFR Calculation 65.0 mL/min/1.73m2 [facility] () [facility] Specimen Blood - VENOUS Narrative Performed At Association of Glomerular Filtration Rate (GFR) [facility] LAB[facility]AT[facility] and Staging of Kidney Disease* + + +- + | GFR (mL/min/1.73 m2) | With Kidney Damage | Without Kidney Damage + + +- + | >90 | Stage one | Normal + + +- + | 60-89 | Stage two | Decreased GFR + + +- + | 30-59 | Stage three | Stage three + + +- + | 15-29 | Stage four | Stage four + + +- + | <15 (or dialysis) | Stage five | Stage five + + +- + *Each stage assumes the associated GFR level has been in effect for at least three months. Stages 1 to 5, with or without kidney disease, indicate chronic kidney disease. Notes: Determination of stages one and two (with eGFR >59mL/min/1.73 m2) requires estimation of kidney damage for at least three months as defined by structural or functional abnormalities of the kidney, manifested by either: Pathological abnormalities or Markers of kidney damage (including abnormalities in the composition of the blood or urine or abnormalities in imaging tests). 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 Essential hypertension Unspecified essential hypertension Stage 3 chronic kidney disease Type 2 diabetes mellitus without complic ation, without long-term current use of insulin Chronic combined systolic and diastolic congestive heart failure Chronic combined systolic and diastolic heart failure documented in this encounter Administered Medications Medication Order MAR Action Action Date Dose Rate Site aspirin chewable tablet 81 mg Given 01/17/2020 8:45 AM SEGMENT BLOCK LAYER 81 mg 81 mg, Oral, DAILY, First dose on Thu01/16/20 at 0900, Until Discontinued, Routine Given 01/16/2020 9:28 AM SEGMENT BLOCK LAYER 81 mg atorvastatin (LIPITOR) tablet 40 mg Given 01/16/2020 8:05 PM SEGMENT BLOCK LAYER 40 mg 40 mg, Oral, QHS, First dose on Thu01/16/20 at 2100, Until Discontinued, Routine dextrose 50 % in water (D50W) injection 25 mL 25 mL, Slow IV Push, PRN, Starting Thu at 0452, Until Discontinued, ADAMA, Blood Glucose < or = 70 mg/dL and patien t is unable to swallow or has mental status changes. furosemide (LASIX) tablet 40 mg Given 01/17/2020 8:45 AM SEGMENT BLOCK LAYER 40 mg 40 mg, Oral, DAILY, First dose on Thu01/16/20 at 0900, Until Discontinued, Routine Given 01/16/2020 9:28 AM SEGMENT BLOCK LAYER 40 mg glucagon (GLUCAGEN DIAGNOSTIC KIT) injec tion 1 mg 1 mg, Intramuscular, PRN, Starting Thu at 0452, Until Discontinued, ADAMA, Blood Glucose < or = 70 mg/dL and patient is unable to swallow or has mental changes. heparin 25,000 unit/250 mL Rate Change 01/17/2020 11:39 AM 800 Units/ hr 8 mL/hr (Premixed Bag) in NaCl 0.45 SEGMENT BLOCK LAYER % weight based dosing ACS protocol 1,000 Units/hr (10 mL/hr), IV Infusion, CONTINUOUS, Starting Thu01/16/20 at 0000, Until Discontinued New Bag 01/17/2020 5:07 AM SEGMENT BLOCK LAYER 750 Units/hr 7.5 mL/hr New Bag 01/16/2020 6:18 PM SEGMENT BLOCK LAYER 700 Units/hr 7 mL/hr insulin glargine (LANTUS U-100) Given 01/17/2020 8:45 AM SEGMENT BLOCK LAYER 30 Units Abdomen-SC injection 30 Units 30 Units, Subcutaneous, DAILY, First dose on Thu01/16/20 at 0900, Until Discontinued Given 01/16/2020 9:29 AM SEGMENT BLOCK LAYER 30 Units Righ t Upper Arm-SC metoprolol tartrate (LOPRESSOR) tablet 12.5 Given 01/2020 8:45 AM SEGMENT BLOCK LAYER 12.5 mg mg 12.5 mg, Oral, BID, First dose on Thu01/16/20 at 0800, Until Discontinued, Routine Given 01/16/2020 8:06 PM SEGMENT BLOCK LAYER 12.5 mg Given 01/16/2020 9:28 AM SEGMENT BLOCK LAYER 12.5 mg nitroglycerin (NITROSTAT) sublingual tab let 0.4 mg 0.4 mg, Sublingual, Q5MIN PRN, Starting Thu01/16/20 at 0157, Until Discontinued, Routine, Chest pain ranolazine (RANEXA) 12 hr tablet 500 mg Given 01/17/2020 8:45 AM SEGMENT BLOCK LAYER 500 mg 500 mg, Oral, Q12H, First dose on Thu01/16/20 at 1630, Until Discontinued, Routine Given 01/16/2020 8:05 PM SEGMENT BLOCK LAYER 500 mg Given 01/16/2020 4:32 PM SEGMENT BLOCK LAYER 500 mg Sliding Scale Insulin-Regular + Given 01/17/2020 1:00 PM SEGMENT BLOCK LAYER 6 Units Abdomen-SC Fsbg Testing Subcutaneous, Q6H, First dose on Thu01/16/20 at 0600, Until Discontinued, Routine Given 01/17/2020 12:40 AM SEGMENT BLOCK LAYER 4 Units Abdo men-SC Given 01/16/2020 6:17 PM SEGMENT BLOCK LAYER 4 Units Left Upper Arm-SC Medication Order MAR Action Action Date Dose Rate Site heparin 1000 unit/mL Given 01/15/2020 11:47 PM SEGMENT BLOCK LAYER 4,000 Units injection Soln 4,000 Units 4,000 Units, IV Push, ONCE, 1 dose, 01/15/20 at 2345, ADAMA insulin regular human (HUMULIN R) injection Given 11/2019 11:40 PM SEGMENT BLOCK LAYER 8 Units 8 Units 8 Units, Slow IV Push, ONCE, 1 dose, 01/16/20 at 0045, STAT morpHINE injection 2 mg Given 01/17/2020 12:41 AM SEGMENT BLOCK LAYER 2 mg 2 mg, Slow IV Push, Q6HPRN, Starting 01/16/20 at 0154, Until Tu01/17/20 at 0153, Routine, Pain (scale 7-10) documented in this encounter Insurance Payer Benefit Plan / Subscriber ID Effective Phone Address T e Group [facility] [id number] 2019-Pres [facility] - HEALTHCARE ent Adv HM O MANAGED DUAL COMPLETE MEDICARE HMO [facility] MEDICAID OF xxxxxxxxx 2018-Pres [phone] [facility] ent [phone] [place] [address] documented as of this encounter
--- OUTSIDE RECORDS SUMMARY | 2020-03-09 20:19 | XMS REPORT | Summary of Care ---
:1940 Author Organization [facility] - Health Address [address] [place] [id number] Care Team Providers Name Role Phone MD Trang Primary Care Provider Reason for Visit Reason Comments Transition Of Care Encounter Details Date Type Department Care Team Description 01/18/2020 Transition of Care [facility] Ana M Harvey, garden tractor mechanic Of Care [facility]- [address] [place] [id number] Allergies No Known Allergiesdocumented as of this encounter (statuses as of 01/19/2020) Medications Medication Sig Dispensed Refills Start Date [...] as of this encounter (statuses as of 01/19/2020) Active Problems Problem Noted Date Chronic combined [...] on exertion) 12/12/2018 Coronary artery disease involving [place] coronary ailin ry of [place] heart 12/12/2018 with angina pectoris Stage 3 chronic kidney disease 12/12/2018 NSTEMI (non-ST elevated myocardial infarction) 019 Diabetic polyneuropathy associated with type 2 diabete s mellitus 02/23/2017 documented as of this encounter (statuses as of 01/19/2020) Immunizations Name Administration Dates Next Due Influenza [...] Diabetes & Mal Larsen MD Metabolism [address] [place], [place] [id number] Health Maintenance Due Date Last Done Comments [...] Effective Phone Address T ype Group Dates [facility] [id number] 2019-Pres Medica re HEALTHCARE - HEALTHCARE ent Adv HM O MANAGED DUAL COMPLETE MEDICARE HMO [place] MED[place] OF xxxxxxxxx 2018-Pres [phone] [facility] [place] ent [phone] [place] [address] documented as of this encounter
--- OUTSIDE RECORDS SUMMARY | 2020-03-09 20:20 | XMS REPORT | Summary of Care ---
:1940 Author Organization [facility] - Health Address [address] [place] [address] Care Team Providers Name Role Phone MD Trang Primary Care Provider Reason for Visit Reason Comments Erroneous encounter-disregard Encounter Details Date Type Department Care Team Description 02/15/2020 Telemedicine Visit [facility] Kathrin Larsen MD ERRONEOUS Endocrinology- [address] ENCOUNTER--LIZZ [facility] (Primary Dx) Professional Office [place] [phone] [place] [address] 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 Stage 3 chronic kidney disease 12/12/2018 NSTEMI (non-ST elevated myocardial infarction) 019 Diabetic polyneuropathy associated with type 2 diabete s mellitus 02/23/2017 documented as of this encounter (statuses as of 02/15/2020) Immunizations Name Administration Dates Next Due Influenza [...] Signs Not on filedocumented in this encounter Progress Notes Kathrin Larsen MD - 02/15/2020 11:30 AM CDTCalled patient X 2 times and unable to reach patient Left message to call back for reschedule documented in this encounter Plan of Treatment Health Maintenance Due Date Last Done Comments [...] filedocumented in this encounter Visit Diagnoses Diagnosis ERRONEOUS ENCOUNTER--DISREGARD - Primary documented in this encounter Insurance Payer Benefit Plan / Subscriber ID Effective Phone Address T ype Group Dates [facility] [id number] 2019-Pres Medica re HEALTHCARE - HEALTHCARE ent Adv HM O MANAGED DUAL COMPLETE MEDICARE [facility] MEDICAID OF xxxxxxxxx 2018-Pres [phone] [facility] [place] ent [phone] [place] [address] documented as of this encounter
--- OUTSIDE RECORDS SUMMARY | 2020-03-09 20:21 | XMS REPORT | Summary of Care ---
:1940 Author Organization [facility] - Health Address [address] [place] [address] Care Team Providers Name Role Phone MD Trang Primary Care Provider Reason for Referral (Routine) Status Reason Specialty Diagnoses / Referred By Referred To Procedures Contact Contact New Request IM-CARDIOVASCULA Diagnoses Chest pain, unspecified type Elevated troponin Bogdan Colindres R DISEASE Procedures Discharge Follow-Up: Specialty Service IM-CARDIOVASCULAR DISEASE (Attar); [address] [place] [address] Radiology Services (STAT) Status Reason Specialty Diagnoses / Referred By Referred To Procedures Contact Contact New Request Diagnostic Diagnoses Chest pain, unspecified type Bobo Urrutia, Radiology Procedures XR CHEST 1 VW COVID Chest [address] [place] [address] [id number] [place] [address] Reason for Visit Reason Comments Chest Pain Shortness of Breath Auth/Cert Status Reason Specialty Diagnoses / Referred By Referred To Procedures Contact Contact Emergency Medicine [facility] [address] [place] [address] Fax: Encounter Details Date Type Department Care Team Description 02/29/2020 - Hospital ADC Medicine Bobo Urrutia MD [address] [place], [place] [address]VD [id number] [place] [address] [phone] Chest pain due to 03/02/2020 Encounter Surgery Unit Bogdan Colindres MD [address] [place] [address] [phone] CAD [address] [facility] [place] [address] Allergies No Known Allergiesdocumented as of this encounter (statuses as of 03/02/2020) Medications Medication Sig Dispensed Refills Start End Date Status Date memantine-donepez Take 1 capsule by 0 Active il (NAMZARIC) mouth daily. 28-10 mg CSpX folic acid/vit B Take by mouth. 0 Active complex and C (B COMPLEX-VITAMIN C-FOLIC ACID ORAL) Cholecalciferol, Take by mouth. 0 Active Vitamin D3, 2,000 unit capsule metoprolol Take 12.5 mg by 0 Act stefany tartrate 12.5 mg mouth 2 (two) times daily. MULTIVITAMIN ORAL Take by mouth. 0 Active thiamine (VITAMIN Take 100 mg by 0 Active B-1) 100 mg mouth daily. tablet aspirin 81 mg Take 81 mg by 0 Ac tive chewable tablet mouth daily. atorvastatin 40 Take 40 mg by 0 Active mg tablet mouth at bedtime. NaCl 0.9% (NS) Inject 10 mL 0 Ac tive Soln 10 mL with intravenously sodium chloride once now. 2.5 mEq/mL SolP 17.125 mEq insulin lispro, inject 4 Units 0 Active human, 100 under the skin 3 9 unit/mL (three) times injectionIndicati daily before ons: Uncontrolled meals. type 2 diabetes mellitus with hyperglycemia Insulin Glargine inject 30 Units 15 mL 1 Active 100 unit/mL (3 under the skin 9 mL) every morning. injectionIndicati ons: Uncontrolled type 2 diabetes mellitus with hyperglycemia magnesium oxide Take 400 mg by 30 tablet 0 Active 420 mg mouth daily. 9 TabIndications: Elevated troponin furosemide 40 mg Take 1 tablet by 60 tablet 1 Active tabletIndications mouth every 0 : Elevated morning and troponin evening. potassium Take 20 mEq by 30 Packet 0 Activ e chloride 20 mEq mouth daily. 0 packetIndications : Chest pain, unspecified type, Elevated troponin lisinopril 5 mg Take 1 tablet by 30 tablet 0 Active tabletIndications mouth daily. 0 : Chest pain, unspecified type, Elevated troponin isosorbide Take 1 tablet by 30 tablet 0 Ac tive mononitrate 30 mg mouth daily. 0 24 hr tabletIndications : Chest pain, unspecified type, Elevated troponin vitamin B-12 Take 1 tablet by 30 tablet 0 Active 1,000 mcg mouth daily. 0 tabletIndications : Chest pain, unspecified type, Elevated troponin potassium Take 20 mEq by 0 03/02/20 Disco ntinued chloride 20 mEq mouth daily. 20 ( Reorder) packet furosemide 40 mg Take 1 tablet by 30 tablet 0 Discontinued tabletIndications mouth daily. 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 Stage 3 chronic kidney disease 12/12/2018 NSTEMI (non-ST elevated myocardial infarction) 019 Diabetic polyneuropathy associated with type 2 diabete s mellitus 02/23/2017 documented as of this encounter (statuses as of 03/02/2020) Immunizations Name Administration Dates Next Due Influenza [...] Sign Reading Time Taken Comments Blood Pressure 122/81 03/02/2020 10:49 AM CDT Pulse 89 03/02/2020 10:49 AM CDT Temperature 37.1 C (98.7 F) 03/02/2020 10:49 AM CDT Respiratory Rate 19 03/02/2020 10:49 AM CDT Oxygen Saturation 96% 03/02/2020 10:49 AM CDT Inhaled Oxygen Concentration - - Weight 77 kg (169 lb 11.2 oz) 02/29/2020 7:54 PM CDT Height 170.2 cm (5' 7") 02/29/2020 7:54 PM CDT Body Mass Index 26.58 02/29/2020 7:54 PM CDT documented in this encounter Discharge Instructions InstructionsJoi Lucero RN - 03/02/2020 Patient Discharge Instructions Discharge date: 03/02/2020 Procedure(s): Discharge Orders Regular Diet; Texture: Regular. Texture Regular. Diabetic: No Discharge Condition - Discharge Condition: GOOD Discharge Activity Discharge Activity: As Tolerated Discharge Follow-Up: Specialty Service IM-CARDIOVASCULAR DISEASE (Attar); 2 Weeks Specialty: IM-CARDIOVASCULAR DISEASE [4] Attar Patient's Preferred Location: [place] Discharge Disposition: Home Health not related to Admit, (ARS) When (Patients with risk for unplanned readmission score over 16 or those noted as Hospital Dependent should follow up within 7 days with PCP or primary DX specialist): 2 Weeks Risk of Unplanned Readmission:( Score greater than 16 indicates high risk) 22 VTE Propylaxis- Was ordered during hospitalization Home Health Order Order Comments: I certify that Demetrius Noel Torsten is under my care and that I, or a nurse practitioner or physician's teacher's assistant working with me, had a [id number] encounter with this patient on: 03/01/2020. The encounter with Demetrius Sarmiento was in whole or in part, for the following medical condition(s), which is the primary reason for home health care: Generalized weakness. I am ordering and certify that based on my findings the following services are medically necessary home health services: Evaluation and Treatment, Home Safety Eval and Physical Therapy Eval & Treatment [facility] Services: Medication Management and Teaching PCP follow up: Attar Call lab results to: My clinical findings support the need for the services listed above because: limited mobility and ROM Further, I certify that my clinical findings support that this patient is homebound (i.e. absences from home require considerable and taxing effort and are for medical reasons or samaritan services or infrequently or of short duration when for other reasons) because: Requires assistance of supported de vices to leave the home I understand and acknowledge that this is not a valid order until it is authenticated by a medical provider who has authority within their Scope of Practice to do so. I am inputting this information in my capacity as a scribe. Kalin Carbajal RN Take Home Medications These are medications ordered for you by your healthcare provider. Do not take any other medications or supplements unless advised by your healthcare provider. Current Discharge Medication List START taking these medications Details isosorbide mononitrate 30 mg 24 hr tablet Take 1 tablet by mouth daily. Qty: 30 tablet, Refills: 0 Associated Diagnoses: Chest pain, unspecified type; Elevated troponin lisinopril 5 mg tablet Take 1 tablet by mouth daily. Qty: 30 tablet, Refills: 0 Associated Diagnoses: Chest pain, unspecified type; Elevated troponin vitamin B-12 1,000 mcg tablet Take 1 tablet by mouth daily. Qty: 30 tablet, Refills: 0 Associated Diagnoses: Chest pain, unspecified type; Elevated troponin CONTINUE these medications which have CHANGED Details furosemide 40 mg tablet Take 1 tablet by mouth every morning and evening. Qty: 60 tablet, Refills: 1 Associated Diagnoses: Elevated troponin potassium chloride 20 mEq packet Take 20 mEq by mouth daily. Qty: 30 Packet, Refills: 0 Associated Diagnoses: Chest pain, unspecified type; Elevated troponin CONTINUE these medications which have NOT CHANGED Details magnesium oxide 420 mg Tab Take 400 mg by mouth daily. Qty: 30 tablet, Refills: 0 Associated Diagnoses: Elevated troponin Insulin Glargine 100 unit/mL (3 mL) injection inject 30 Units under the skin every morning. Qty: 15 mL, Refills: 1 Associated Diagnoses: Uncontrolled type 2 diabetes mellitus with hyperglycemia insulin lispro, human, 100 unit/mL injection inject 4 Units under the skin 3 (three) times daily before meals. Associated Diagnoses: Uncontrolled type 2 diabetes mellitus with hyperglycemia aspirin 81 mg chewable tablet Take 81 mg by mouth daily. atorvastatin 40 mg tablet Take 40 mg by mouth at bedtime. Cholecalciferol, Vitamin D3, 2,000 unit capsule Take by mouth. folic acid/vit B complex and C (B COMPLEX-VITAMIN C-FOLIC ACID ORAL) Take by mouth. metoprolol tartrate 12.5 mg Take 12.5 mg by mouth 2 (two) times daily. MULTIVITAMIN ORAL Take by mouth. NaCl 0.9% (NS) Soln 10 mL with sodium chloride 2.5 mEq/mL SolP 17.125 mEq Inject 10 mL intravenouslyonce now. thiamine (VITAMIN B-1) 100 mg tablet Take 100 mg by mouth daily. memantine-donepezil (NAMZARIC) 28-10 mg CSpX Take 1 capsule by mouth daily. If you receive the patient satisfaction survey by mail please complete and return and let us know how we are doing. TOBACCO AVOIDANCE Exposure to tobacco either from smoking or from second hand (environmental) smoke or smokeless tobacco (snuff) is damaging to your health. This information is to encourage everyone to avoid tobacco exposure. It is recommended that you: ? If you smoke or use smokeless tobacco, we encourage you to quit. ? If you have already quit smoking, continue your good work! ? If you do not smoke or use smokeless tobacco, do not start. ? Avoid secondhand smoke. Additional Resources You may want to contact these organizations for further information on smoking and how to quit. [place] [employer], http://www.lungusa.org/stop-smoking/ [place] [employer], http://www.cancer.org/Healthy/StayAwayfromTobacco/index [place] [employer], http://www.heart.org/HEARTORG/GettingHealthy/QuitSmoking/Quit-Smoking_[facility] _001085_SubHomePage.jspCoaal [facility] P: [phone]. AttachmentsThe following attachments cannot be sent through Care Everywhere. Chest Pain, Uncertain Cause (Gabonese)Shortness of Breath (Dyspnea) (Gabonese) Furosemide tablets (Gabonese)Potassium Salts tablets, extended-release tablets or capsules (Gabonese)Lisinopril tablets (Gabonese)Isosorbide Mononitrate extended- release tablets (Gabonese)Vitamin B12 oral (Gabonese)documented in this encounter Progress Notes Madi Brown RN - 03/02/2020 11:01 AM CDT Care Management Discharge Disposition Note (DCDN) -2- Interventions: Disease specific education;Intensive medication reconciliation/management;Teachback;Clear discharge plan;Follow-up appointments -2- Providers: Physician;Food Porter/Materials Scheduler -2- Patient Capacity Improvements: Avoidance of adverse events/readmission Discharge Plan for ongoing care and services: Home Health (HH) Is this a new referral: Yes Patient Choice completed for referred services: Yes DME location: Other DME location: Durable Medical Equipment: Home Health location: [address] () [phone] (F) [phone] Discharge location(s): Home Health location: [address] () [phone] (F) [phone] Patient choice completed for referred services: Yes Discussed with patient/patients family involved in decision making: Yes Patient or family caregiver understands, and agrees with discharge plan. Community resources/referrals made or provided to patient: No Resources/Referrals: Transportation: Private Vehicle(Ciera Sarmiento daughter [phone]) Mental Status: Alert & Oriented to Person,Place & Time Living Arrangement: Home Other living arrangement: Address of living arrangement: [address] [place] [address] [address] [place] [place] Funding Resources: Medicare Replacement Nursing informed of discharge plan: Yes Name of RN informed: Estimated discharge date: 03/02/20 Time: Additional Information: ADDISON/MOE Name & Contact number: Madi BUSHN not for patient use [email or web address] The following information has been provided to the facility noted above: reason for the patient discharge or transfer; patients physical and psychosocial status; summary of care, treatment, servicesprovided to patient; and the patient progress toward goals. Madi Real RN - 03/02/2020 10:50 AM CDTCare Management Note 03/02/2020 10:50 AM ADDISON spoke with Steph at [facility] - [address] [place] [address] [address], [place], [place] [address] (P) [phone] (F) [phone] [facility] is ready to accept patient. Madi Brown ENGRAVING SUPERVISOR CM Office not for patient use [email or web address] Fern Hall RN - 03/01/2020 5:22 PM IJEOMATI, BOGDAN COLINDRES MD, after reviewing this case with the Food Porter, I concur this case is appropriate for inpatient admission. The change to inpatient admission is based on the level of care this patient is receiving, medical necessity, risks associated and the expected duration of stay. The inpatient admission order has been entered. Fern Pereira RN, BSN Utilization Review [facility] Office: [phone] Bogdan Valentino MD - 03/01/2020 2:43 PM CDT [facility] Hospitalist Progress Note SUBJECTIVE: No acute events overnight. CURRENT MEDICATIONS - reviewed. Current Facility-Administered Medications Medication Dose Route Frequency Last Rate Last Dose cyanocobalamin (VITAMIN B12) injection 1,000 mcg 1,000 mcg Subcutaneous Q24H KCL (KLOR-CON M20) tablet 40 mEq 40 mEq Oral BID 20 mEq at 03/01/20 0954 acetaminophen (TYLENOL) tablet 650 mg 650 mg Oral Q6HPRN aspirin chewable tablet 81 mg 81 mg Oral QAM WITH BREAKFAST 81 mg at 03/01/20 0821 atorvastatin (LIPITOR) tablet 40 mg 40 mg Oral QHS 40 mg at 02/29/20 2237 donepezil (ARICEPT) tablet 5 mg 5 mg Oral QHS enoxaparin (LOVENOX) injection 30 mg 30 mg Subcutaneous DAILY 30 mg at 03/01/20 0821 furosemide (LASIX) injection 40 mg 40 mg Slow IV Push Q12H 40 mg at 03/01/20 0821 glipiZIDE (GLUCOTROL) tablet 5 mg 5 mg Oral BIDAC 5 mg at 03/01/20820 insulin glargine (LANTUS U-100) injection 10 Units 10 Units Subcutaneous QHS isosorbide mononitrate (IMDUR) 24 hr tablet 30 mg 30 mg Oral DAILY 30 mg at 03/01/20820 lisinopril (PRINIVIL,ZESTRIL) tablet 5 mg 5 mg Oral DAILY 5 mg at 03/01/20819 magnesium oxide (MAG-OX 400) tablet 400 mg 400 mg Oral BID 400 mg at 03/01/20819 memantine (NAMENDA) tablet 10 mg 10 mg Oral DAILY 10 mg at 03/01/20820 metoprolol succinate XL (TOPROL XL) tablet 25 mg 25 mg Oral BID 25 mg at 03/01/20819 OLANZapine (ZyPREXA) tablet 2.5 mg 2.5 mg Oral QHS 2.5 mg at 02/29/201 ranolazine (RANEXA) 12 hr tablet 500 mg 500 mg Oral Q12H 500 mg at 03/01/20819 spironolactone (ALDACTONE) tablet 12.5 mg 12.5 mg Oral DAILY 12.5 mg at 03/01/20820 PHYSICAL EXAM: BP (!) 150/65 | Pulse 85 | Temp 36.7 C (98.1 F) (Tympanic) | Resp 18 | Ht 5' 7" (1.702 m) |Wt 169 lb 11.2 oz (77 kg) | SpO2 91% | BMI 26.58 kg/m General: No respiratory distress Skin: No rash or lesions Neuro: AAOx3, no focal deficits Psych: Normal affect LABS/IMAGING - reviewed, pertinent results as below: CBC BMP PT/INR WBC (10*3/L) Date Value 03/01/2020 6.73 NA (mmol/L) Date Value 03/01/2020 141 No results found for: PT RBC (10*6/L) Date Value 03/01/2020 4.17 (L) K (mmol/L) Date Value 03/01/2020 3.5 INR (no units) Date Value 02/29/2020 1.2 PLT (10*3/L) Date Value 03/01/2020 149 (L) CALCIUM (mg/dL) Date Value 03/01/2020 8.7 HGB (g/dL) Date Value 03/01/2020 13.0 CL (mmol/L) Date Value 03/01/2020 105 aPTT HCT (%) Date Value 03/01/2020 37.5 (L) BUN (mg/dL) Date Value 03/01/2020 13 APTT Patient (Seconds) Date Value 01/17/2020 40 (H) CREATININE (mg/dL) Date Value 03/01/2020 1.01 IMAGING- Hospital Encounter on 02/29/20 XR CHEST 1 VW COVID Narrative PROCEDURE: CHEST, SINGLE VIEW CLINICAL INDICATION: 79 years Male presenting with chest pain/SOB COMPARISON: Chest radiographs 01/15/2020 FINDINGS: Lines/hardware: Lungs: Mild perivascular congestion is present. No focal consolidation, pleural effusion, or pneumothorax. Mediastinum: The cardiomediastinal silhouette is enlarged, unchanged. Calcifications of the aortic arch. Osseous structures: No acute bony abnormality. The electrodes of a spinal cord stimulating device overlie the mid thoracic spine. Impression No acute intrathoracic abnormality, specifically no radiographic findings to suggest COVID-19 pneumonia. Disclaimer: Generally, the findings on chest imaging in COVID-19 are not specific, and overlap with other infections, including influenza, H1N1, SARS and MERS. According to the Centers for Disease Control (CDC) and recent statement of the [place] [employer], viral testing remains the only specific method of diagnosis. Confirmation with the viral test is required, even if radiologic findings are suggestive of COVID-[address] Preliminary Report Dictated by Resident: Joey Ramos I, Radu Ruano MD., have reviewed this study and agree with the above report. 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 In past has required milrinone CAD s/p stent. Recent cath, follows Dr. Costello cardiology, no further intervention possibly Chronic recurrent angina Trend trops, telemetry, cardiology consult dr. Parkinson. Updated Dr. Costello on the phone today Will defer echo ordering to cardiology if needed Asa, lipitor, metoprolol (changed to xl and increased dose) IV lasix 40 mg BID, strict i/o, fluid restriction [facility] was on lasix 40 mg BID, lisinopril, aldactone, imdur but medication list very unclear to me Start aldactone 12.5 mg qd, lisinopril 5 mg qd, imdur 30 mg qd. Uptitrate as possible kcl 20 meq, monitor K hypomagnesemia Hypokalemia Replace CKD stage 3 History of right nephrectomy Type 2 DM, uncontrolled, A1c 12.8 in January 2019 Not taking insulin like he was previously Supposed to be on insulin lantus 30 units on night but not compliant Will start lantus 10 units at night as well as glipizide Recommended patient for close PCP f/u Recommend endocrine f/u on discharge, seems to f/u with Dr. Chava Spear, statin POCT glucose qachs Dementia, diabetic neuropathy Last discharge medication list from [facility] in oct 2019 shows he was on namzaric, lyrica, zyprexa Again I'm highly suspicious of his compliance dvt proph lovenox Full Code, advance care planning discussed for 18 minutes on admisison, surrogate deicison maker daughter zamzam Disposition: [facility] UNIT AIDE TECH was verified during stay Bogdan Colindres MD Kalin Raphael RN - 03/01/2020 8:44 AM CDT Care Management Social Functional Assessment Patient Name: Demetrius Sarmiento Age: [age] year old Sex: male Patient's Previous Admission Date at [facility]: 09/21/2019 Current diagnosis and co-morbidities: chest pain due to CAD Readmission Questions: Was patient discharged from any acute care hospital within the last 30 days: No Social Functional Assessment: Primary language spoken/preferred: Gabonese Mental Status: Alert & Oriented to Person,Place & Time Information given by: Self Patient's support system: Child Name and number of support system: Ciera Sarmiento daughter [phone] Primary Hot Knife Cutter: Self MPOA: Same as support system Living Arrangement: Home Address of living arrangement : [address] [place], [place] [address]KEN [place] [facility] Persons living in home: Same as support system Barriers to returning home: None Baseline functional status- ambulation: Independent Functional status-baseline personal care: Independent Baseline functional status- driving: Independent Baseline functional status- grocery shopping: Independent Functional status-baseline housekeeping: Independent Functional status-baseline meal prep: Independent Current functional status same as prior: Yes Do you have a PCP?: Yes Name of PCP: [facility] Home Health Care Agency: No Provider Services: No DME Company: No Equipment: Walker;Wheelchair: Manual Hemodialysis: No Community resources utilized: None Funding Resources: Medicare Replacement Medicare Replacement name and information: [facility] Prescription coverage plan: Medicare Part D Pharmacy where meds are filled: Other [email or web address] [place] Anticipated services prior to disharge: Continue Medical Eval Expected mode of discharge transportation: Same as support system Additional info required for discharge planning: Pending medical evaluation Recommended discharge plan: Home with new Home Health SFA Complete: Social Functional Assessment complete: Yes Alcohol Use Screening (AUDIT-C) How often do you have a drink containing alcohol?: Never SCORE: 0 Role of Care Management explained. Yes Any issues or concerns with obtaining/affording your medications at home: no. Are you or your support system able to citrus picker medications at discharge: yes. Describe: Have you or family you live with or family that is with you here in the hospital had: ? Recent history of travel to a high-risk area: no (example [place], [place]) ? Recent sick contacts before or during admission: no ? Contact with a proven COVID-19 case: no ? Symptoms: fever, dry cough, fatigue, difficulty breathing: yes: If yes, please explain: SOB ? Attended recent events with a gatherings of > 10 people: no Do you have at least 30 days of all your medications available? yes Do you have My Chart set up? no Patient notified that they may be receiving a call regarding a follow-up visit after discharge. Yes Visitor policy was reviewed with patient/family. Yes Due to the no visitor policy is there anyone you would like to list that needs to be updated regarding your care and plan for discharge. Kalin Carbajal RN, BSN [facility] ADC Food Porter O [phone] F [phone] . documented in this encounter Plan of Treatment Name Type Priority Associated Diagnoses Order S chedule EKG-12 LEAD ROUTINE HEART STATION ADAMA ONCE fo r 1 Occurrences starting 2019 until 0 EKG-12 LEAD ROUTINE HEART STATION ADAMA TOM[place]RO W AM AT 0600 for 1 Occurrenc es starting 2019 until 0 Health Maintenance Due Date Last Done Comments [...] 01/21/2019, 01/21/2019, 12/24/2018, Additional history exists HgA1C 08/30/2020 02/29/2020, 01/15/2020, 09/06/2019, Additional history exists LDL-C 01/15/2021 01/16/2020 CREATININE (SERUM) 03/01/2021 03/01/2020, 02/29/2020, 01/17/2020, Additional history exists documented as of this encounter Procedures Procedure Name Priority Date/Time Associated Comments Diagnosis POCT GLUCOSE Routine 03/02/2020 10:52 Results for this (AUTOMATED) AM CDT procedure are i n the results section. POCT GLUCOSE Routine 03/02/2020 7:39 Results for this (AUTOMATED) AM CDT procedure are i n the results section. N-TERMINAL PRO-BNP Routine 03/02/2020 3:57 Resul ts for this AM CDT procedure are i n the results section. BASIC METABOLIC PANEL Routine 03/02/2020 3:57 Re sults for this (NA, K, CL, CO2, AM CDT procedure a re in GLUCOSE, BUN, the results CREATININE, CA) section. MAGNESIUM Routine 03/02/2020 3:57 Results for this AM CDT procedure are i n the results section. POCT GLUCOSE Routine 03/01/2020 3:39 Results for this (AUTOMATED) PM CDT procedure are i n the results section. CBC WITH DIFFERENTIAL Routine 03/01/2020 3:43 Re sults for this AM CDT procedure are i n the results section. N-TERMINAL PRO-BNP Routine 03/01/2020 3:43 Resul ts for this AM CDT procedure are i n the results section. CBC WITH DIFFERENTIAL Routine 03/01/2020 3:43 Re sults for this AM CDT procedure are i n the results section. BASIC METABOLIC PANEL Routine 03/01/2020 3:43 Re sults for this (NA, K, CL, CO2, AM CDT procedure a re in GLUCOSE, BUN, the results CREATININE, CA) section. TROPONIN I Routine 03/01/2020 3:43 Results for this AM CDT procedure are i n the results section. MAGNESIUM Routine 03/01/2020 3:43 Results for this AM CDT procedure are i n the results section. SEDIMENTATION RATE Routine 02/29/2020 10:49 Resul ts for this PM CDT procedure are i n the results section. FOLATE Routine 02/29/2020 10:49 Results for this PM CDT procedure are i n the results section. VITAMIN B12, LEVEL Routine 02/29/2020 10:49 Resul ts for this PM CDT procedure are i n the results section. POCT GLUCOSE Routine 02/29/2020 10:39 Results for this (AUTOMATED) PM CDT procedure are i n the results section. PROCALCITONIN ADAMA 02/29/2020 9:28 Results fo r this PM CDT procedure are i n the results section. N-TERMINAL PRO-BNP STAT 02/29/2020 9:28 Chest pain, Resul ts for this PM CDT unspecified type procedure are in SOB (shortness of the result s breath) section. PROTHROMBIN TIME / Routine 02/29/2020 9:28 Resul ts for this INR PM CDT procedure are i n the results section. HEPATIC FUNCTION Add-on 02/29/2020 9:28 Results for this PANEL (30931) PM CDT procedure are in (ALB,T.PRO,BILI the results T,BU/BC,ALT,AST,ALK section. PHOS) TROPONIN I Routine 02/29/2020 9:28 Results for this PM CDT procedure are i n the results section. URIC ACID ADAMA Add-On 02/29/2020 9:28 Results for this PM CDT procedure are i n the results section. PHOSPHORUS Routine 02/29/2020 9:28 Results for this PM CDT procedure are i n the results section. EKG-12 LEAD Routine 02/29/2020 8:54 PM CDT EKG-12 LEAD Routine 02/29/2020 6:16 PM CDT XR CHEST 1 VW COVID STAT 02/29/2020 6:14 Chest pain, Resu lts for this PM CDT unspecified type procedure a re in the results section. EKG-12 LEAD Routine 02/29/2020 6:13 PM CDT LACTIC ACID WHOLE STAT 02/29/2020 5:21 Chest pain, Result s for this BLOOD PM CDT unspecified type procedure a re in the results section. CORONAVIRUS COVID-19 STAT 02/29/2020 5:20 Chest pain, Res ults for this TESTING PM CDT unspecified type procedure a re in the results section. CBC WITH DIFFERENTIAL STAT 02/29/2020 5:14 Chest pain, Re sults for this PM CDT unspecified type procedure a re in the results section. N-TERMINAL PRO-BNP Add-on 02/29/2020 5:14 Resul ts for this PM CDT procedure are i n the results section. GLYCOSYLATED Add-on 02/29/2020 5:14 Results for this HEMOGLOBIN (A1C) PM CDT procedure a re in the results section. CBC WITH DIFFERENTIAL Routine 02/29/2020 5:14 Chest pain, Re sults for this PM CDT unspecified type procedure a re in the results section. BASIC METABOLIC PANEL STAT 02/29/2020 5:14 Chest pain, Re sults for this (NA, K, CL, CO2, PM CDT unspecified type procedu re are in GLUCOSE, BUN, the results CREATININE, CA) section. THYROID STIMULATING Add-on 02/29/2020 5:14 Resu lts for this HORMONE PM CDT procedure are i n the results section. TROPONIN I STAT 02/29/2020 5:14 Chest pain, Results for this PM CDT unspecified type procedure a re in the results section. MAGNESIUM ADAMA Add-On 02/29/2020 5:14 Results for this PM CDT procedure are i n the results section. LIPASE STAT Add-On 02/29/2020 5:14 Chest pain, Results for this PM CDT unspecified type procedure a re in the results section. URIC ACID ADAMA Add-On 02/29/2020 5:14 Results for this PM CDT procedure are i n the results section. CREATINE KINASE Add-on 02/29/2020 5:14 Results for this PM CDT procedure are i n the results section. EKG-12 LEAD STAT 02/29/2020 4:59 PM CDT EKG-12 LEAD Routine 02/29/2020 4:48 PM CDT EMERGENCY DEPARTMENT Routine 02/29/2020 12:01 DOCUMENTS AM CDT documented in this encounter Results POCT GLUCOSE (AUTOMATED) (03/02/2020 10:52 AM CDT) Pathologist Sig Geliyoo POCT GLU 271 (H) 70 - 110 mg/dL [facility] Specimen Blood Performing Organization Address [facility] Phone Number [facility] CLIA: [id number], [address] POCT GLUCOSE (AUTOMATED) (03/02/2020 7:39 AM CDT) Pathologist Sig Geliyoo POCT GLU 214 (H) 70 - 110 mg/dL [facility] Specimen Blood Performing Organization Address [facility] Phone Number [facility] CLIA: [id number], [address] MAGNESIUM (03/02/2020 3:57 AM CDT) Pathologist Sig Geliyoo MAGNESIUM 1.8 1.7 - 2.4 mg/dL [facility] Specimen Blood - HAND, RIGHT Performing Organization Address [facility] Phone Number [facility] CLIA: [id number], [address] BASIC METABOLIC PANEL (NA, K, CL, CO2, GLUCOSE, BUN, CREATININE, CA) (03/02/2020 3:57 AM CDT) Pathologist Sig Geliyoo NA 143 135 - 145 [facility] mmol/L [facility] K 3.8 3.5 - 5.0 [facility] mmol/L [facility] CL 105 98 - 108 mmol/L [facility] CO2 TOTAL 28 23 - 31 mmol/L [facility] AGAP 10 2 - 16 [facility] BUN 19 7 - 23 mg/dL [facility] GLUCOSE 152 (H) 70 - 110 mg/dL [facility] CREATININE 1.18 0.60 - 1.25 [facility] mg/dL [facility] CALCIUM 9.0 8.6 - 10.6 [facility] mg/dL [facility] eGFR Calculation 59.4 mL/min/1.73m2 [facility] ([facility] LABORATORY [place]) eGFR Calculation 72.0 mL/min/1.73m2 [facility] () [facility] Specimen Blood - HAND, RIGHT Narrative Performed At [facility] of Glomerular Filtration Rate (GFR) [facility] and Staging of Kidney Disease* [...] abnormalities in imaging tests). Performing Organization Address [facility]/[place] Phone Number [facility] CLIA: [id number], [address] N-TERMINAL PRO-BNP (03/02/2020 3:57 AM CDT) Pathologist Sig nature NT-proBNP 1,670 (H) <=450 pg/mL [facility] Specimen Blood - HAND, RIGHT Narrative Performed At [facility] has been reported to cause a negative [facility] bias, interpret results relative to patient's use of biotin. Performing Organization Address [facility]/[employer] Phone Number [facility] CLIA: [id number], [address] POCT GLUCOSE (AUTOMATED) (03/01/2020 3:39 PM CDT) Pathologist Sig [facility] POCT GLU 231 (H) 70 - 110 mg/dL [facility] Specimen Blood Performing Organization Address City/State/Zipcode Phone Number [facility] CLIA: [id number], [address], [place] [address] CBC WITH DIFFERENTIAL (03/01/2020 3:43 AM CDT) Pathologist Sig [facility] WBC 6.73 4.20 - 10.70 [facility] 10*3/L [facility] RBC 4.17 (L) 4.26 - 5.52 [facility] 10*6/L [facility] HGB 13.0 12.2 - 16.4 [facility] g/dL [facility] HCT 37.5 (L) 38.4 - 49.3 % [facility] MCV 89.9 81.7 - 95.6 fL [facility] MCH 31.2 26.1 - 32.7 pg [facility] MCHC 34.7 31.2 - 35.0 [facility] g/dL [facility] RDW-SD 47.8 38.5 - 51.6 fL [facility] RDW-CV 14.8 12.1 - 15.4 % [facility] PLT 149 (L) 150 - 328 [facility] 10*3/L [facility] MPV 9.9 9.8 - 13.0 fL [facility] NRBC/100 WBC 0.0 0.0 - 10.0 /100 [facility] WBCs [facility] NRBC x10^3 <0.01 10*3/L [facility] GRAN MAT (NEUT) % 66.0 % [facility] IMM GRAN % 0.30 % [facility] LYMPH % 20.8 % [facility] MONO % 9.5 % [facility] EOS % 2.8 % [facility] BASO % 0.6 % [facility] GRAN MAT x10^3(ANC) 4.44 1.99 - 6.95 [facility] 10*3/uL HOSPITAL LAB[facility]ATORY IMM GRAN x10^3 <0.03 0.00 - 0.06 [facility] 10*3/uL HOSPITAL LAB[facility]ORY LYMPH x10^3 1.40 1.09 - 3.23 [facility] 10*3/uL HOSPITAL LAB[facility]ORY MONO x10^3 0.64 0.36 - 1.02 [facility] 10*3/uL HOSPITAL LAB[facility]ORY EOS x10^3 0.19 0.06 - 0.53 [facility] 10*3/uL HOSPITAL LAB[facility]ORY BASO x10^3 0.04 0.01 - 0.[address]/uL [facility] Specimen Blood - HAND, LEFT Performing Organization Address City/[facility]/Zipcode Phone Number [facility] CLIA: [id number], [address] TROPONIN I (03/01/2020 3:43 AM CDT) Pathologist Sig nature TROPONIN I 0.093 (H) <=0.034 ng/mL [facility] Specimen Blood - HAND, LEFT Narrative Performed At Equal or Less than 0.034 ng/ml---Normal [facility] Note: Cardiac troponin begins to [...] patient's use of biotin. Performing Organization Address [facility]/[employer] Phone Number [facility] CLIA: [id number], [address] N-TERMINAL PRO-BNP (03/01/2020 3:43 AM CDT) Pathologist Sig nature NT-proBNP 4,450 (H) <=450 pg/mL [facility] Specimen Blood - HAND, LEFT Narrative Performed At Biotin has been reported to cause a negative [facility] bias, interpret results relative to patient's use of biotin. Performing Organization Address [facility]/[place] Phone Number [facility] CLIA: [id number], [address] Magnesium Serum (03/01/2020 3:43 AM CDT) Pathologist Sig Geliyoo MAGNESIUM 1.9 1.7 - 2.4 mg/dL [facility] Specimen Blood - HAND, LEFT Performing Organization Address [facility]/[place] Phone Number [facility] CLIA: [id number], [address] Basic Metabolic Panel (NA, K, CL, CO2, GLUCOSE, BUN, CREATININE, CA) (03/01/2020 3:43 AM CDT) Pathologist Sig nature NA 141 135 - 145 [facility] mmol/L [facility] K 3.5 3.5 - 5.0 [facility] mmol/L [facility] CL 105 98 - 108 mmol/L [facility] CO2 TOTAL 26 23 - 31 mmol/L [facility] AGAP 10 2 - 16 [facility] BUN 13 7 - 23 mg/dL [facility] GLUCOSE 219 (H) 70 - 110 mg/dL [facility] CREATININE 1.01 0.60 - 1.25 [facility] mg/dL [facility] CALCIUM 8.7 8.6 - 10.6 [facility] mg/dL [facility] eGFR Calculation 71.1 mL/min/1.73m2 [facility] ([facility] LABORATORY [place]) eGFR Calculation 86.1 mL/min/1.73m2 [facility] () [facility] Specimen Blood - HAND, LEFT Narrative Performed At Association of Glomerular Filtration Rate (GFR) [facility] and Staging of Kidney Disease* [...] abnormalities in imaging tests). Performing Organization Address [facility]/[employer] Phone Number [facility] CLIA: [id number], [address] [place], [place] [address] [address] FOLATE (02/29/2020 10:49 PM CDT) FOLATE SER >20.0 (H)Comment: 3.0 - 20.0 [facility] Slight hemolysis ng/mL SERVICES Specimen Blood - ARM, LEFT Performing Organization Address [facility] Phone Number [facility] SERVICES CLIA: [id number], [address] [place] [address] [address] [facility] VITAMIN B12, LEVEL (02/29/2020 10:49 PM CDT) Pathologist Sig nature VIT B12 325 240 - 930 pg/mL [facility] SERVICES Specimen Blood - ARM, LEFT Narrative Performed At Biotin has been reported to cause a positive bias, int erpret [facility] SERVICES results relative to patient's use of biotin. Performing Organization Address [facility]/[place] Phone Number [facility] SERVICES CLIA: [id number], [address] [place] [address] [facility] SEDIMENTATION RATE (02/29/2020 10:49 PM CDT) Pathologist Sig nature ESR 31 (H) 0 - 10 mm/HR [facility] Specimen Blood - VENOUS Performing Organization Address [facility]/[place] Phone Number [facility] CLIA: [id number], [address], [place] [address] POCT GLUCOSE (AUTOMATED) (02/29/2020 10:39 PM CDT) Pathologist Sig nature POCT GLU 190 (H) 70 - 110 mg/dL [facility] Specimen Blood Performing Organization Address [facility] Phone Number [facility] CLIA: [id number], [address] URIC ACID (02/29/2020 9:28 PM CDT) Pathologist Sig nature URIC ACID 2.3 (L) 3.6 - 8.0 mg/dL [facility] Specimen Blood - ARM, LEFT Performing Organization Address [facility] Phone Number [facility] CLIA: [id number], [address] HEPATIC FUNCTION PANEL ([id number]) (ALB,T.PRO,BILI T,BU/BC,ALT,AST,ALK PHOS) (02/29/2020 9:28 PM CDT) Pathologist Sig nature TOTAL BILI 2.2 (H) 0.1 - 1.1 mg/dL [facility] BILI UNCON 2.0 (H) 0.1 - 1.1 mg/dL [facility] BILI CONJ 0.0 0.0 - 0.3 mg/dL [facility] T PROTEIN 6.7 6.3 - 8.2 g/dL [facility] ALBUMIN 4.0 3.5 - 5.0 g/dL [facility] ALK PHOS 48 34 - 122 U/L [facility] ALTv 18 5 - 50 U/L [facility] AST(SGOT) 57 (H) 13 - 40 U/L [facility] Specimen Blood - ARM, LEFT Performing Organization Address [facility] Phone Number [facility] CLIA: [id number], [address] TROPONIN I (02/29/2020 9:28 PM CDT) Pathologist Sig nature TROPONIN I 0.098 (H) <=0.034 ng/mL [facility] Specimen Blood - ARM, LEFT Narrative Performed At Equal or Less than 0.034 ng/ml---Normal [facility] Note: Cardiac troponin begins to [...] biotin. Performing Organization Address City/State/Zipcode Phone Number [facility] CLIA: [id number], [address], [place] [address] PROCALCITONIN (02/29/2020 9:28 PM CDT) Pathologist Sig nature Procalcitonin 3.05 (H) <0.07 ng/mL [facility] SERVICES Specimen Blood - ARM, LEFT Narrative Performed At INTERPRETATION OF PROCALCITONIN RESULTS IN ADULTS >= 1 8 [facility] SERVICES YEARS OF AGE Initiation and discontinuation of antibiotics on patie nts with suspected or confirmed Lower Respiratory Tract Infection in Adults >= 18 years of age. + + + +----- ------ + |Procalcitonin |Interpretation |Antibiotic |Considerations |ng/mL | |recommend ation | + + + +----- ------ + | <0.1 | Bacterial | Strongly | | | infection very | discouraged | Overruling: | | unlikely | | Clinically unstable + + + + H igh risk for adverse | <0.25 | Bacterial | Discouraged | outcome | | infection | | SEE IMPORTANT NOTE | | unlikely | | + + + +----- ------ + | >=0.25 | Bacterial | Encouraged | | | infection | | | | likely | | Consider treatment failure + + + + if l evels does not decrease | >0.5 | Bacterial | Strongly | appropriately | | infection very | encouraged | | | likely | | + + + +----- ------ + Discontinuation of antibiotics in high-acuity patients with suspected or confirmed sepsis in Adults >= 18 years of age. + + + +----- ------ + |Procalcitonin |Interpretation |Antibiotic |Considerations |ng/mL | |recommend ation | + + + +----- ------ + | <0.25 | Bacterial | Strongly | | | infection very | discouraged | Overruling: | | unlikely | | Clinically unstable + + + + H igh risk for adverse | <0.5 or drop | Bacterial | Discouraged | outcome | >80% from | infection | | SEE IMPORTANT NOTE | highest PCT | unlikely | | | level | | | + + + +----- ------ + | >=0.5 | Bacterial | Encouraged | | | infection | | | | likely | | Consider treatment failure + + + + if l evels does not decrease | >1.0 | Bacterial | Strongly | appropriately | | infection very | encouraged | | | likely | | + + + +----- ------ + Percentage of drop of Procalcitonin calculation for Discontinuation of antibiotics in high-acuity patients with suspected or confirmed sepsis in Adults >= 18 years of age. Procalcitonin highest{}-Procalcitonin current{} Delta Procalcitonin = x100% Procalcitonin current {} IMPORTANT NOTE: Procalcitonin may be elevated without bacterial infection by physiologic stress related to t rauma, mckeon, chronic dialysis, metastatic cancer, surgery in the past seven days, malaria, some fungal infections, and some forms of vasculitis. The interpretation algorithm may not apply to patients with immunosuppression (equivalent o f >10 mg of prednisone daily), HIV with CD4 cell count < 350 cells/mm3, active malignancy on systemic chemotherapy, solid organ transplant or hematopoietic stem cell transplant [facility], or hospital acquired pneumonia. Additionally, some cli nical trials of procalcitonin have excluded patients with sh ock requiring vasopressor use, acute respiratory failure requiring mechanical ventilation, or those with known lung abscess/empyema. For further information please refer to: [email or web address] Performing Organization Address [facility]/[place] Phone Number [facility] CLIA: [id number], [address] [place], [place] [address] [facility] PROTHROMBIN TIME / INR (02/29/2020 9:28 PM CDT) Pathologist [facility] PROTIME PATIENT 14.3 12.0 - 14.7 [facility] LABORATORY INR 1.2Comment: Normal [facility] INR <1.1; [facility] Therapeutic range LABORATORY 2.0 to 3.0 or 2.5 to 3.5, depending upon the indications. Specimen Blood - ARM, LEFT Performing Organization Address [facility]/Zipcode Phone Number [facility] CLIA: [id number], [address], [place] [address] [facility] [address] Phosphorus Serum (02/29/2020 9:28 PM CDT) [facility] PHOSPHORUS 3.1Comment: Slight 2.5 - 5.0 mg/dL [facility] LABORATORY Specimen Blood - ARM, LEFT Performing Organization Address [facility]/[employer] Phone Number [facility] CLIA: [id number], [address], [place] [address] N-TERMINAL PRO-BNP (02/29/2020 9:28 PM CDT) Pathologist Sig nature NT-proBNP 4,080 (H) <=450 pg/mL [facility] Specimen Blood - ARM, LEFT Narrative Performed At Biotin has been reported to cause a negative [facility] bias, interpret results relative to patient's use of biotin. Performing Organization Address City/State/Zipcode Phone Number [facility] CLIA: [id number], [address], [place] [address] XR CHEST 1 VW COVID (02/29/2020 6:14 PM CDT) Specimen Impressions Performed At PACS/VR/DOSE No acute intrathoracic abnormality, specifically no ra diographic findings to suggest COVID-19 pneumonia. Disclaimer: Generally, the findings on c hest imaging in COVID-19 are not specific, and overlap with other infecti ons, including influenza, H1N1, SARS and MERS. According to the Centers for Disease Control (CDC) and recent statement of the [place], viral testing remai ns the only specific method of diagnosis. Confirmation with the viral test is required, even if radiologic findings are suggestive of CO VID-[address]. Preliminary Report Dictated by Resident: Radu Roth MD., have reviewe d this study and agree with the above report. Narrative Performed At PROCEDURE: CHEST, SINGLE VIEW PACS/VR/DOSE CLINICAL INDICATION: 79 years Male prese nting with chest pain/SOB COMPARISON: Chest radiographs 01/15/2020 FINDINGS: Lines/hardware: Lungs: Mild perivascular congestion is p resent. No focal consolidation, pleural effusion, or pneumothorax. Mediastinum: The cardiomediastinal silho uette is enlarged, unchanged. Calcifications of the aortic arch. Osseous structures: No acute bony abnormality. The cody ctrodes of a spinal cord stimulating device overlie the mid thoracic spine. Procedure Note [facility], Radiant Results Inft User - 2019 6:27 PM CDT PROCEDURE: CHEST, SINGLE VIEW CLINICAL INDICATION: 79 years Male prese nting with chest pain/SOB COMPARISON: Chest radiographs 01/15/2020 FINDINGS: Lines/hardware: Lungs: Mild perivascular congestion is p resent. No focal consolidation, pleural effusion, or pneumothorax. Mediastinum: The cardiomediastinal silho uette is enlarged, unchanged. Calcifications of the aortic arch. Osseous structures: No acute bony abnorm ality. The electrodes of a spinal cord stimulating device overlie the mid thoracic spine. IMPRESSION No acute intrathoracic abnormality, spec ifically no radiographic findings to suggest COVID-19 pneumonia. Disclaimer: Generally, the findings on c hest imaging in COVID-19 are not specific, and overlap with other infecti ons, including influenza, H1N1, SARS and MERS. According to the Centers for Disease Con trol (CDC) and recent statement of the [place], viral testing remains the only specific method of diagnosis. Confirmation with t he viral test is required, even if radiologic findings are suggestive of CO VID-[address]. Preliminary Report Dictated by Resident: Radu Roth MD., have reviewed this study and agree with the above report. Performing Organization Address City/[facility]/Zipcode Phone Number PACS/VR/DOSE Lactic Acid Whole Blood (02/29/2020 5:21 PM CDT) Pathologist Sig vazquez LACTIC ACID 1.88 0.30 - 2.60 mmol/L [facility] Specimen Blood - VENOUS Performing Organization Address [facility]/Zipcode Phone Number [facility] CLIA: [id number], [address] [place], [place] [address] CORONAVIRUS COVID-19 TESTING (02/29/2020 5:20 PM CDT) Pathologist Sig [facility] SARS-CoV-2 Not Detected Not Detected [facility] Specimen Swab - NASOPHARYNGEAL SWAB Narrative Performed At ID NOW COVID-19 Assay is an isothermal nucleic [facility] acid amplification test intended for the qualitative detection of nucleic acid from SARS-CoV-2 viral RNA in nasopharyngeal (RIPPER OPERATOR) specimens. It is used under Emergency Use Authorization (EUA) by FDA. The limit of detection (LOD) of the assay is 125 Genome Equivalents/mL. A positive result is indicative of the presence of SARS-CoV-2 RNA. Clinical correlation with patient history and other diagnostic information is necessary to determine patient infection status. A negative (Not Detected) result does not preclude SARS-CoV-2 infection. Clinical correlation with patient history and other diagnostic information should be used in patient management decisions. Invalid: Please collect a new specimen for repeat patient testing if clinically indicated. Performing Organization Address [facility]/[place] Phone Number [facility] CLIA: [id number], [address] [place] [address] URIC ACID (02/29/2020 5:14 PM CDT) Pathologist Sig nature URIC ACID 2.3 (L) 3.6 - 8.0 mg/dL [facility]OR[facility] Specimen Blood - VENOUS Performing Organization Address [facility]/[place] Phone Number [facility] CLIA: [id number], [address] [place] [address] MAGNESIUM (02/29/2020 5:14 PM CDT) Pathologist Sig nature MAGNESIUM 1.5 (L) 1.7 - 2.4 mg/dL [facility] Specimen Blood - VENOUS Performing Organization Address [facility] Phone Number [facility] CLIA: [id number], [address] [place] [address] GLYCOSYLATED HEMOGLOBIN (A1C) (02/29/2020 5:14 PM CDT) Pathologist Sig nature HGB A1C 9.5 (H) 4.0 - 6.0 % [facility] LAB[facility] Specimen Blood - VENOUS Narrative Performed At %A1C ([facility]) Interpretation (ADA) [facility] 4.8-5.6 Normal or (Non-Diabetic Ra nge) 5.7-6.4 Increased Risk (Pre-Diabet ic) >6.5 Diabetes Indicated Performing Organization Address [facility]/[place] Phone Number [facility] CLIA: [id number], [address] [place] [address] CREATINE KINASE (02/29/2020 5:14 PM CDT) Pathologist Sig nature CK 68 33 - 194 U/L [facility] Specimen Blood - VENOUS Performing Organization Address [facility]/Zipcode Phone Number [facility] CLIA: [id number], [address] [address] THYROID STIMULATING HORMONE (02/29/2020 5:14 PM CDT) Pathologist Sig [facility] TSH 2.32 0.45 - 4.70 mIU/L [facility] Specimen Blood - VENOUS Performing Organization Address [facility]/[place] Phone Number [facility] CLIA: [id number], [address] [address] N-TERMINAL PRO-BNP (02/29/2020 5:14 PM CDT) Pathologist [facility] NT-proBNP 4,390 (H) <=450 pg/mL [facility]OR[facility] Specimen Blood - VENOUS Narrative Performed At Biotin has been reported to cause a negative [facility] bias, interpret results relative to patient's use of biotin. Performing Organization Address [facility] Phone Number [facility] CLIA: [id number], [address] [address] LIPASE (02/29/2020 5:14 PM CDT) [facility] LIPASE 68 0 - 220 U/L [facility] Specimen Blood - VENOUS Performing Organization Address [facility] Phone Number [facility] CLIA: [id number], [address] [address] CBC WITH DIFFERENTIAL (02/29/2020 5:14 PM CDT) Pathologist Sig [facility] WBC 6.25 4.20 - 10.70 [facility] 10*3/L [facility] RBC 4.21 (L) 4.26 - 5.52 [facility] 10*6/L [facility] HGB 13.3 12.2 - 16.4 [facility] g/dL [facility] HCT 37.7 (L) 38.4 - 49.3 % [facility] MCV 89.5 81.7 - 95.6 fL [facility] MCH 31.6 26.1 - 32.7 pg [facility] MCHC 35.3 (H) 31.2 - 35.0 [facility] g/dL [facility] RDW-SD 46.6 38.5 - 51.6 fL [facility] RDW-CV 14.6 12.1 - 15.4 % [facility] PLT 156 150 - 328 [facility] 10*3/L [facility] MPV 9.7 (L) 9.8 - 13.0 fL [facility] NRBC/100 WBC 0.0 0.0 - 10.0 /100 [facility] WBCs [facility] NRBC x10^3 <0.01 10*3/L [facility] GRAN MAT (NEUT) % 68.6 % [facility] IMM GRAN % 0.30 % [facility] LYMPH % 18.6 % [facility] MONO % 10.1 % [facility] EOS % 1.8 % [facility] BASO % 0.6 % [facility] GRAN MAT x10^3(ANC) 4.29 1.99 - 6.95 [facility] 10*3/uL [facility] IMM GRAN x10^3 <0.03 0.00 - 0.06 [facility] 10*3/uL [facility] LAB[facility] LYMPH x10^3 1.16 1.09 - 3.23 [facility] 10*3/uL [facility] MONO x10^3 0.63 0.36 - 1.02 [facility] 10*3/uL [facility] EOS x10^3 0.11 0.06 - 0.53 [facility] 10*3/uL [facility] BASO x10^3 0.04 0.01 - 0.09 [facility] 10*3/uL [facility]OR[facility] Specimen Blood - VENOUS Performing Organization Address City/State/Zipcode Phone Number [facility] CLIA: [id number], [address] [place], [place] [address] Troponin I (02/29/2020 5:14 PM CDT) Pathologist Sig nature TROPONIN I 0.071 (H) <=0.034 ng/mL [facility] LABOR[facility] Specimen Blood - VENOUS Narrative Performed At Equal or Less than 0.034 ng/ml---Normal [facility] Note: Cardiac troponin begins to [...] biotin. Performing Organization Address City/State/Zipcode Phone Number [facility] CLIA: [id number], [address] [place], [place] [address] Basic Metabolic Panel (NA, K, CL, CO2, GLUCOSE, BUN, CREATININE, CA) (02/29/2020 5:14 PM CDT) [facility] NA 141 135 - 145 [facility] mmol/L [facility] K 3.2 (L) 3.5 - 5.0 [facility] mmol/L [facility] CL 104 98 - 108 mmol/L [facility] CO2 TOTAL 25 23 - 31 mmol/L [facility] AGAP 12 2 - 16 [facility] BUN 12 7 - 23 mg/dL [facility] GLUCOSE 250 (H) 70 - 110 mg/dL [facility] CREATININE 1.02 0.60 - 1.25 [facility] mg/dL [facility] CALCIUM 8.9 8.6 - 10.6 [facility] mg/dL [facility] LAB[facility] eGFR Calculation 70.3 mL/min/1.73m2 [facility] ([facility] LABORATORY [place]) eGFR Calculation 85.2 mL/min/1.73m2 [facility] () [facility] LABOR[facility] Specimen Blood - VENOUS Narrative Performed At Association of Glomerular Filtration Rate (GFR) [facility] and Staging of Kidney Disease* [...] tests). Performing Organization Address City/State/Zipcode Phone Number [facility] CLIA: [id number], [address] [place], [place] [address] documented in this encounter Visit Diagnoses Diagnosis Chest pain due to CAD - Primary Chest pain, unspecified type SOB (shortness of breath) Shortness of breath Elevated troponin Other abnormal blood chemistry documented in this encounter Administered Medications Medication Order MAR Action Action Date Dose Rate Site acetaminophen (TYLENOL) tablet 650 mg 650 mg, Oral, Q6HPRN, Starting Thu at 1857, Until Discontinued, Routine, Pain (scale 1-3) aspirin chewable tablet 81 mg Given 03/02/2020 9:43 AM CDT 81 mg 81 mg, Oral, QAM WITH BREAKFAST, First dose on Thu02/29/20 at 2130, Until Discontinued, Routine Given 03/01/2020 8:21 AM CDT 81 mg Given 02/29/2020 10:37 PM CDT 81 mg atorvastatin (LIPITOR) tablet 40 mg Given 03/01/2020 7:58 PM CDT 40 mg 40 mg, Oral, QHS, First dose on Thu02/29/20 at 2130, Until Discontinued, Routine Given 02/29/2020 10:37 PM CDT 40 mg cyanocobalamin (VITAMIN Given 03/01/2020 3:36 PM 1,000 mcg Right Upper Arm-SC B12) injection 1,000 mcg CDT 1,000 mcg, Subcutaneous, Q24H, First dose on Thu03/01/20 at 1545, Until Discontinued, Routine donepezil (ARICEPT) tablet 5 mg Given 03/01/2020 8:00 PM CDT 5 mg 5 mg, Oral, QHS, First dose on Thu03/01/20 at 2100, Until Discontinued, Routine enoxaparin (LOVENOX) injection 30 mg Given 03/02/2020 9:42 AM CDT 30 mg Abdo men-SC 30 mg, Subcutaneous, DAILY, First dose on Thu03/01/20 at 0900, Until Discontinued, Routine Given 03/01/2020 8:21 AM CDT 30 mg Abdo men-SC furosemide (LASIX) injection 40 mg Given 03/02/2020 9:43 AM CDT 40 mg 40 mg, Slow IV Push, Q12H, First dose on Thu02/29/20 at 2130, Until Discontinued, Routine Given 03/01/2020 7:58 PM CDT 40 mg Given 03/01/2020 8:21 AM CDT 40 mg glipiZIDE (GLUCOTROL) tablet 5 mg Given 03/02/2020 9:43 AM CDT 5 mg 5 mg, Oral, BIDAC, First dose on Thu02/29/20 at 2145, Until Discontinued, Routine Given 03/01/2020 3:36 PM CDT 5 mg Given 03/01/2020 8:21 AM CDT 5 mg insulin glargine (LANTUS U-100) injectio n 10 Units 10 Units, Subcutaneous, QHS, First dose on Thu02/29/20 at 2145, Until Discontinued, Routine isosorbide mononitrate (IMDUR) 24 hr tablet Given 03/02/2020 9:43 AM CDT 30 mg 30 mg 30 mg, Oral, DAILY, First dose on Thu03/01/20 at 0900, Until Discontinued, Routine Given 03/01/2020 8:21 AM CDT 30 mg KCL (KLOR-CON M20) tablet 40 mEq Given 03/02/2020 9:43 AM CDT 40 mEq 40 mEq, Oral, BID, First dose on Thu03/01/20 at 0830, Until Discontinued, Routine Given 03/01/2020 7:58 PM CDT 40 mEq Given 03/01/2020 9:54 AM CDT 20 mEq lisinopril (PRINIVIL,ZESTRIL) tablet 5 m g Given 03/02/2020 9:43 AM CDT 5 mg 5 mg, Oral, DAILY, First dose on Thu03/01/20 at 0900, Until Discontinued, Routine Given 03/01/2020 8:20 AM CDT 5 mg magnesium oxide (MAG-OX 400) tablet 400 mg Given 03/02/2020 9:43 AM CDT 400 mg 400 mg, Oral, BID, First dose on Thu02/29/20 at 2130, Until Discontinued, Routine Given 03/01/2020 7:58 PM CDT 400 mg Given 03/01/2020 8:20 AM CDT 400 mg memantine (NAMENDA) tablet 10 mg Given 03/02/2020 9:43 AM CDT 10 mg 10 mg, Oral, DAILY, First dose on Thu03/01/20 at 0900, Until Discontinued, 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, 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 Restricted medication: MEGADC Given 03/01/2020 8:21 AM CDT 10 mg metoprolol succinate XL (TOPROL XL) tablet 25 Given 9:43 AM CDT 25 mg mg 25 mg, Oral, BID, First dose on Thu02/29/20 at 2130, Until Discontinued, Routine Given 03/01/2020 7:58 PM CDT 25 mg Given 03/01/2020 8:20 AM CDT 25 mg OLANZapine (ZyPREXA) tablet 2.5 mg Given 03/01/2020 7:58 PM CDT 2.5 mg 2.5 mg, Oral, QHS, First dose on Thu02/29/20 at 2145, Until Discontinued, Routine Given 02/29/2020 10:41 PM CDT 2.5 mg ranolazine (RANEXA) 12 hr tablet 500 mg Given 03/02/2020 9:43 AM CDT 500 mg 500 mg, Oral, Q12H, First dose on Thu02/29/20 at 2130, Until Discontinued, Routine Given 03/01/2020 7:58 PM CDT 500 mg Given 03/01/2020 8:20 AM CDT 500 mg spironolactone (ALDACTONE) tablet 12.5 m g Given 03/02/2020 9:43 AM CDT 12.5 mg 12.5 mg, Oral, DAILY, First dose on Thu02/29/20 at 2130, Until Discontinued, Routine Given 03/01/2020 8:21 AM CDT 12.5 mg Given 02/29/2020 10:41 PM CDT 12.5 mg Medication Order MAR Action Action Date Dose Rate Site acetaminophen (TYLENOL) tablet Given 02/29/2020 5:36 PM CDT 650 mg 650 mg 650 mg, Oral, ONCE, 1 dose, Thu02/29/20 at 1800, ADAMA KCL (KLOR-CON M20) tablet 20 mEq Given 03/01/2020 8:21 AM CDT 20 mEq 20 mEq, Oral, DAILY, First dose on Madhavi 03/01/20 at 0900, Until Discontinued, Routine KCL (KLOR-CON M20) tablet 40 mEq Given 02/29/2020 9:05 PM CDT 40 mEq 40 mEq, Oral, ONCE, 1 dose, 02/29/20 at 2000, Routine magnesium sulfate in water 2 gram/50 mL (4 %) New Bag 10:30 PM CDT 2 g 2 g piggyback 2 g, IV Infusion, ONCE, 1 dose, 02/29/20 at 2230 metoprolol (LOPRESSOR) injection 5 mg Given 02/29/2020 10:37 PM CDT 5 mg 5 mg, Slow IV Push, ONCE, 1 dose, 02/29/20 at 2230, ADAMA NaCl 0.9% (NS) bolus infusion 500 New Bag 02/29/2020 6:37 PM CDT 500 mL 999 mL/hr mL at 999 mL/hr, 500 mL, IV Infusion, ONCE, 1 dose, Thu02/29/20 at 1830, ADAMA documented in this encounter Insurance Payer Benefit Plan / Subscriber ID Effective Phone Address T ype Group [facility] [id number] 2019-Pres [facility] ent Adv HM O MANAGED DUAL COMPLETE MEDICARE HMO [facility] MEDICAID OF xxxxxxxxx 2018-Pres [phone] [place] ent [id number] [place] [address] documented as of this encounter
--- OUTSIDE RECORDS SUMMARY | 2020-03-09 20:22 | XMS REPORT | Summary of Care ---
:1940 Author Organization [facility] - Health Address [address] [place] [address] Care Team Providers Name Role Phone MD Trang Primary Care Provider Reason for Visit Reason Comments Transition Of Care Encounter Details Date Type Department Care Team Description 03/03/2020 Transition of Care [facility] Isatu Silva RN Transition Of Care Health [facility]- [address] [place] [phone] Allergies No Known Allergiesdocumented as of this encounter (statuses as of 03/03/2020) Medications Medication Sig Dispensed Refills Start Date [...] 17.125 mEq insulin lispro, inject 4 Units under 0 03/25/2019 Active human, 100 unit/mL the skin 3 (three) injectionIndications times daily before : Uncontrolled type meals. 2 diabetes mellitus with hyperglycemia Insulin Glargine 100 inject 30 Units 15 mL 1 07/27/2019 Active unit/mL (3 mL) under the skin every injectionIndications morning. : Uncontrolled type 2 diabetes mellitus with hyperglycemia magnesium oxide 420 Take 400 mg by mouth 30 tablet 0 9 Active mg TabIndications: daily. Elevated troponin furosemide 40 mg Take 1 tablet by 60 tablet 1 03/02/2020 Active tabletIndications: mouth every morning Elevated troponin and evening. potassium chloride Take 20 mEq by mouth 30 Packet 0 03/02/2020 Active 20 mEq daily. packetIndications: Chest pain, unspecified type, Elevated troponin lisinopril 5 mg Take 1 tablet by 30 tablet 0 03/03/2020 Active tabletIndications: mouth daily. Chest pain, unspecified type, Elevated troponin isosorbide Take 1 tablet by 30 tablet 0 03/03/2020 A ctive mononitrate 30 mg 24 mouth daily. hr tabletIndications: Chest pain, unspecified type, Elevated troponin vitamin B-12 1,000 Take 1 tablet by 30 tablet 0 03/02/2020 Active mcg mouth daily. 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 02/23/2017 documented as of this encounter (statuses as of 03/03/2020) Immunizations Name Administration Dates Next Due Influenza [...] filedocumented in this encounter Plan of Treatment Health [...] history exists LDL-C 01/15/2021 01/16/2020 CREATININE (SERUM) 03/02/2021 03/02/2020, 03/01/2020, 02/29/2020, Additional history exists documented as of this encounter Results Not on filedocumented in this encounter Insurance Payer Benefit Plan / Subscriber ID Effective Phone Address T ype Group Dates [facility] [id number] 2019-Pres [employer] [facility] - HEALTHCARE ent Adv HM O MANAGED DUAL COMPLETE MEDICARE HMO [facility] MEDICAID OF xxxxxxxxx 2018-Pres [phone] [place] ca[place] ent [id number] [place] [address] documented as of this encounter
--- OUTSIDE RECORDS SUMMARY | 2020-03-09 20:24 | XMS REPORT | Summary of Care ---
:1940 Author Organization [facility] - Health Address [address] [place] [address] Care Team Providers Name Role Phone MD Trang Primary Care Provider Reason for Visit Reason Comments Transition Of Care Encounter Details Date Type Department Care Team Description 03/08/2020 Transition of Care [facility]- RN [address] [phone] Allergies No Known Allergiesdocumented as of this encounter (statuses as of 03/08/2020) Medications Medication Sig Dispensed Refills Start Date End Date Status memantine-donepezil Take 1 capsule by 0 Active (NAMZARIC) 28-10 mg mouth daily. CSpX folic acid/vit B Take by mouth. 0 Active complex and C (B COMPLEX-VITAMIN C-FOLIC ACID ORAL) Cholecalciferol, Take by mouth. 0 Active Vitamin D3, 2,000 unit capsule MULTIVITAMIN ORAL Take by mouth. 0 Active thiamine (VITAMIN Take 100 mg by 0 Active B-1) 100 mg tablet mouth daily. NaCl 0.9% (NS) Soln Inject 10 mL 0 Active 10 mL with sodium intravenously once chloride 2.5 mEq/mL now. SolP 17.125 mEq insulin lispro, inject 4 Units 0 03/25/2019 Active human, 100 unit/mL under the skin 3 injectionIndications (three) times daily : Uncontrolled type before meals. 2 diabetes mellitus with hyperglycemia Insulin Glargine 100 inject 10 Units 15 mL 1 03/07/2020 Active unit/mL (3 mL) under the skin at injectionIndications bedtime. : Uncontrolled type 2 diabetes mellitus with hyperglycemia glipiZIDE 5 mg Take 0.5 tablets by 30 tablet 0 03/07/202003/17 Active tabletIndications: mouth 2 (two) times 0 Chest pain, daily before unspecified type breakfast and dinner for 30 days. metoprolol succinate Take 1 tablet by 60 tablet 0 03/07/2020 0 Active XL 25 mg 24 hr mouth 2 (two) times 0 tabletIndications: daily for 30 days. Chest pain, unspecified type OLANZapine 2.5 mg Take 1 tablet by 30 tablet 0 03/07/202003/17 Active tabletIndications: mouth at bedtime 0 Chest pain, for 30 days. unspecified type ranolazine 500 mg 12 Take 2 tablets by 120 tablet 0 03/07/2020 Active hr mouth every 12 0 tabletIndications: (twelve) hours for Chest pain, 30 days. unspecified type spironolactone 25 mg Take 0.5 tablets by 15 tablet 0 0 Active tabletIndications: mouth daily for 30 0 Chest pain, days. unspecified type temazepam 15 mg Take 1 capsule by 14 capsule 0 03/07/2020 Active capsuleIndications: mouth at bedtime as Chest pain, needed for unspecified type Insomnia. furosemide 40 mg Take 1 tablet by 60 tablet 1 03/07/2020 Active tabletIndications: mouth every morning Elevated troponin and evening. aspirin 81 mg Take 1 tablet by 30 tablet 0 03/07/2020 04/06/20 2 Active chewable mouth daily with 0 tabletIndications: breakfast for 30 Chest pain, days. unspecified type atorvastatin 40 mg Take 1 tablet by 30 tablet 0 03/07/2020 Active tabletIndications: mouth at bedtime 0 Chest pain, for 30 days. unspecified type Magnesium Oxide 420 Take 400 mg by 30 tablet 0 03/07/2020 Active mg TabIndications: mouth daily. Elevated troponin vitamin B-12 1,000 Take 1 tablet by 90 tablet 0 03/07/2020 Active mcg mouth daily for 90 0 tabletIndications: days. Chest pain, unspecified type, Elevated troponin potassium chloride Take 20 mEq by 30 Packet 0 03/07/2020 Active 20 mEq mouth daily. Take packetIndications: with lasix in the Chest pain, morning unspecified type, Elevated troponin isosorbide Take 0.5 tablets by 30 tablet 0 03/07/2020 Active mononitrate 30 mg 24 mouth daily. 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 COVID-19 Exposure Response Date Recorded In the last month, have you been in contact with No / Unsure 03/04/2020 6:40 PM CDT someone who was confirmed or suspected to have Coronavirus / COVID-19? documented as of this encounter Last Filed [...] history exists LDL-C 01/15/2021 01/16/2020 CREATININE (SERUM) 03/07/2021 03/07/2020, 03/06/2020, 03/05/2020, Additional history exists documented as of this encounter Results Not on filedocumented in this encounter Insurance Payer Benefit Plan / Subscriber ID Effective Phone Address T e Group [facility] [id number] 2019-Pres [facility] HEALTHCARE ent Adv HM O MANAGED DUAL COMPLETE MEDICARE O [facility] MEDICAID OF xxxxxxxxx 2018-Pres [phone] [facility] ent [id number] [place] [address] documented as of this encounter
--- OUTSIDE RECORDS SUMMARY | 2020-03-09 20:24 | XMS REPORT | Summary of Care ---
:1940 Author Organization [facility] - [facility] Address [address] [place] [id number] Care Team Providers Name Role Phone MD Trang Primary Care Provider Reason for Referral (ADAMA) Status Reason Specialty Diagnoses / Referred By Referred To Procedures Contact Contact Pending Review IM-NEPHROLOGY Diagnoses Chest pain, unspecified type Ivory Leon, Procedures Discharge Follow-Up: Specialty Service IM-NEPHROLOGY (Dr. Briscoe); [address] [place] [address]. [address] [place] [id number] (ADAMA) Status Reason Specialty Diagnoses / Referred By Referred To Procedures Contact Contact New Request IM-GERIATRIC Diagnoses Chest pain, unspecified type Ivory Leon, MEDICINE Procedures Discharge Follow-Up: Specialty Service IM-GERIATRIC MEDICINE (Dr. Khanna); 3- [address] [place] [address]. [address] [place] [address] (Routine) Status Reason Specialty Diagnoses / Referred By Contact Refe rred To Procedures Contact New Request Diagnoses Chest pain, unspecified type Ivory Leon MD AttJono mendieta, Procedures Discharge Follow-up: PCP JONO COSTELLO; [address] [place] [address] [place], [place] [address] [address] Phone: [place] [address] Fax: Radiology Services (STAT) Status Reason Specialty Diagnoses / Referred By Referred To Procedures Contact Contact New Request Diagnostic Diagnoses Chest pain, unspecified type Charanjit Heck, Radiology Procedures XR CHEST [address] [place] [address] [address] [place] [address] Reason for Visit Reason Comments Chest Pain Auth/Cert Status Reason Specialty Diagnoses / Referred By Referred To Procedures Contact Contact Emergency Medicine [facility] [address] [place] [address] [place] [address] Fax: Encounter Details Date Type Department Care Team Description 03/04/2020 - [facility] ADC Medicine Charanjit Heck MD [address] [place] [address] [address] [place], [place] [id number] Chest pain due to 03/07/2020 Encounter Surgery Unit Carrie Adorno MD [address] [place] [address]. [place], [place] [id number] CAD [address] [place] [address] [place], [place] [id number] Allergies No Known Allergiesdocumented as of this encounter (statuses as of 03/07/2020) Medications Medication Sig Dispensed Refills Start End Status Date Date memantine-donepezi Take 1 capsule by 0 Active l (NAMZARIC) 28-10 mouth daily. mg CSpX folic acid/vit B Take by mouth. 0 Active complex and C (B COMPLEX-VITAMIN C-FOLIC ACID ORAL) Cholecalciferol, Take by mouth. 0 Active Vitamin D3, 2,000 unit capsule MULTIVITAMIN ORAL Take by mouth. 0 Active thiamine (VITAMIN Take 100 mg by 0 Active B-1) 100 mg tablet mouth daily. NaCl 0.9% (NS) Inject 10 mL 0 Ac tive Soln 10 mL with intravenously sodium chloride once now. 2.5 mEq/mL SolP 17.125 mEq insulin lispro, inject 4 Units 0 Active human, 100 unit/mL under the skin 3 9 injectionIndicatio (three) times ns: Uncontrolled daily before type 2 diabetes meals. mellitus with hyperglycemia Insulin Glargine inject 10 Units 15 mL 1 Active 100 unit/mL (3 mL) under the skin at 0 injectionIndicatio bedtime. ns: Uncontrolled type 2 diabetes mellitus with hyperglycemia glipiZIDE 5 mg Take 0.5 tablets 30 tablet 0 Active tabletIndications: by mouth 2 (two) 0 020 Chest pain, times daily unspecified type before breakfast and dinner for 30 days. metoprolol Take 1 tablet by 60 tablet 0 Ac tive succinate XL 25 mg mouth 2 (two) 0 020 24 hr times daily for tabletIndications: 30 days. Chest pain, unspecified type OLANZapine 2.5 mg Take 1 tablet by 30 tablet 0 04/06 Active tabletIndications: mouth at bedtime 0 020 Chest pain, for 30 days. unspecified type ranolazine 500 mg Take 2 tablets by 120 tablet 0 07/01 Active 12 hr mouth every 12 0 020 tabletIndications: (twelve) hours Chest pain, for 30 days. unspecified type spironolactone 25 Take 0.5 tablets 15 tablet 0 04/07 Active mg by mouth daily 0 020 tabletIndications: for 30 days. Chest pain, unspecified type temazepam 15 mg Take 1 capsule by 14 capsule 0 Active capsuleIndications mouth at bedtime 0 : Chest pain, as needed for unspecified type Insomnia. furosemide 40 mg Take 1 tablet by 60 tablet 1 Active tabletIndications: mouth every 0 Elevated troponin morning and evening. aspirin 81 mg Take 1 tablet by 30 tablet 0 Active chewable mouth daily with 0 020 tabletIndications: breakfast for 30 Chest pain, days. unspecified type atorvastatin 40 mg Take 1 tablet by 30 tablet 0 03/17 2/ Active tabletIndications: mouth at bedtime 0 020 Chest pain, for 30 days. unspecified type Magnesium Oxide Take 400 mg by 30 tablet 0 Active 420 mg mouth daily. 0 TabIndications: Elevated troponin vitamin B-12 1,000 Take 1 tablet by 90 tablet 0 07/ 1/2 Active mcg mouth daily for 0 020 tabletIndications: 90 days. Chest pain, unspecified type, Elevated troponin potassium chloride Take 20 mEq by 30 Packet 0 Active 20 mEq mouth daily. Take 0 packetIndications: with lasix in the Chest pain, morning unspecified type, Elevated troponin isosorbide Take 0.5 tablets 30 tablet 0 Ac tive mononitrate 30 mg by mouth daily. 0 24 hr Hold if systolic tabletIndications: blood pressure Chest pain, less than 120 unspecified type, Elevated troponin metoprolol Take 12.5 mg by 0 Dis continued tartrate 12.5 mg mouth 2 (two) 020 times daily. aspirin 81 mg Take 81 mg by 0 Di scontinued chewable tablet mouth daily. 020 ( Reorder) atorvastatin 40 mg Take 40 mg by 0 Discontinued tablet mouth at bedtime. 020 (R eorder) Insulin Glargine inject 30 Units 15 mL 1 Discontinued 100 unit/mL (3 mL) under the skin 9 020 (Reorder) injectionIndicatio every morning. ns: Uncontrolled type 2 diabetes mellitus with hyperglycemia magnesium oxide Take 400 mg by 30 tablet 0 Discontinued 420 mg mouth daily. 9 020 (Reorde r) TabIndications: Elevated troponin furosemide 40 mg Take 1 tablet by 60 tablet 1 Discontinued tabletIndications: mouth every 0 020 (Reorder) Elevated troponin morning and evening. potassium chloride Take 20 mEq by 30 Packet 0 Discontinued 20 mEq mouth daily. 0 020 (Reorde r) packetIndications: Chest pain, unspecified type, Elevated troponin lisinopril 5 mg Take 1 tablet by 30 tablet 0 Discontinued tabletIndications: mouth daily. 0 020 Chest pain, unspecified type, Elevated troponin isosorbide Take 1 tablet by 30 tablet 0 Di scontinued mononitrate 30 mg mouth daily. 0 020 (Reorder) 24 hr tabletIndications: Chest pain, unspecified type, Elevated troponin vitamin B-12 1,000 Take 1 tablet by 30 tablet 0 02/15 Discontinued mcg mouth daily. 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 02/23/2017 documented as of this encounter (statuses as of 03/07/2020) Immunizations Name Administration Dates Next Due Influenza [...] Sign Reading Time Taken Comments Blood Pressure 118/65 03/07/2020 3:50 PM CDT Pulse 85 03/07/2020 3:50 PM CDT Temperature 36.4 C (97.5 F) 03/07/2020 3:50 PM CDT Respiratory Rate 18 03/07/2020 3:50 PM CDT Oxygen Saturation 95% 03/07/2020 3:50 PM CDT Inhaled Oxygen Concentration - - Weight 73.5 kg (162 lb) 03/04/2020 9:35 PM CDT Height 172.7 cm (5' 8") 03/04/2020 9:35 PM CDT Body Mass Index 24.63 03/04/2020 9:35 PM CDT documented in this encounter Discharge Instructions AppointmentsDionna Chacon - 03/05/2020 9:40 AM CDTYour follow up appointment with Dr Costello Ritika March 20 @ 2:[address] [place] [address] [address] [facility] [address] [phone] If you need to make changes to this appointment please call the office. AttachmentsThe following attachments cannot be sent through Care Everywhere.CHF Action Plan ([place] Islander)documented in this encounter Progress Notes Chloé Pena MD - 03/07/2020 2:39 PM CDT Pt seen and examined Feels better Denies any major issues at this time Trying to work with physical therapy Vitals: 03/06/20 2351 03/07/20 0413 03/07/20 0752 03/07/20 1030 BP: 113/78 111/66 122/74 123/75 Pulse: 82 88 80 81 Resp: 18 18 18 18 Temp: 37.1 C (98.7 F) 36.4 C (97.6 F) 36.6 C (97.8 F) 36.4 C (97.6 F) TempSrc: Temporal Artery Temporal Artery Temporal Artery Temporal Artery SpO2: 96% 95% 97% 96% Weight: Height: Gen : HEENT : atraumatic Lungs : CTA EXt : no edema Alert awake and oriented Heart : S1S2+ CMP NA (mmol/L) Date Value 03/07/2020 138 03/06/2020 136 03/05/2020 139 03/04/2020 139 03/02/2020 143 K (mmol/L) Date Value 03/07/2020 3.8 03/06/2020 4.1 03/05/2020 4.1 03/04/2020 4.1 03/02/2020 3.8 CALCIUM (mg/dL) Date Value 03/07/2020 10.0 03/06/2020 9.7 03/05/2020 9.8 03/04/2020 9.7 03/02/2020 9.0 CL (mmol/L) Date Value 03/07/2020 97 (L) 03/06/2020 95 (L) 03/05/2020 101 03/04/2020 102 03/02/2020 105 BUN (mg/dL) Date Value 03/07/2020 36 (H) 03/06/2020 35 (H) 03/05/2020 25 (H) 03/04/2020 23 03/02/2020 19 CREATININE (mg/dL) Date Value 03/07/2020 1.50 (H) 03/06/2020 1.67 (H) 03/05/2020 1.22 03/04/2020 1.25 03/02/2020 1.18 GLUCOSE (mg/dL) Date Value 03/07/2020 140 (H) 03/06/2020 174 (H) 03/05/2020 243 (H) 03/04/2020 193 (H) 03/02/2020 152 (H) CO2 TOTAL (mmol/L) Date Value 03/07/2020 30 03/06/2020 30 03/05/2020 27 03/04/2020 29 03/02/2020 28 ALBUMIN (g/dL) Date Value 03/04/2020 4.1 02/29/2020 4.0 01/15/2020 3.9 09/21/2019 4.2 09/09/2019 4.0 T PROTEIN (g/dL) Date Value 03/04/2020 7.1 02/29/2020 6.7 01/15/2020 6.3 09/21/2019 7.5 09/09/2019 7.7 TOTAL BILI (mg/dL) Date Value 03/04/2020 1.1 02/29/2020 2.2 (H) 01/15/2020 1.3 (H) 09/21/2019 1.6 (H) 09/09/2019 1.1 BILI UNCON (mg/dL) Date Value 03/04/2020 1.1 02/29/2020 2.0 (H) 01/15/2020 1.1 01/02/2019 1.1 12/11/2018 1.7 (H) BILI CONJ (mg/dL) Date Value 03/04/2020 0.0 02/29/2020 0.0 01/15/2020 0.0 01/02/2019 0.0 12/11/2018 0.0 ALT(SGPT) (U/L) Date Value 08/18/2019 19 01/02/2019 19 12/11/2018 20 01/19/2018 32 ALTv (U/L) Date Value 03/04/2020 16 02/29/2020 18 01/15/2020 15 09/21/2019 15 09/09/2019 16 AST(SGOT) (U/L) Date Value 03/04/2020 23 02/29/2020 57 (H) 01/15/2020 23 09/21/2019 32 09/09/2019 35 ALK PHOS (U/L) Date Value 03/04/2020 61 02/29/2020 48 01/15/2020 67 09/21/2019 80 09/09/2019 71 CBC WBC (10*3/L) Date Value 03/07/2020 5.59 RBC (10*6/L) Date Value 03/07/2020 4.23 (L) PLT (10*3/L) Date Value 03/07/2020 200 HGB (g/dL) Date Value 03/07/2020 13.5 HCT (%) Date Value 03/07/2020 37.2 (L) Current Facility-Administered Medications: temazepam (RESTORIL) capsule 15 mg, 15 mg, Oral, QHSPRN, Carrie Adorno MD, 15 mg at 03/06/20 212 acetaminophen (TYLENOL) tablet 650 mg, 650 mg, Oral, Q6HPRN, Carrie Adorno MD aspirin chewable tablet 81 mg, 81 mg, Oral, QAM WITH BREAKFAST, Carrie Adorno MD, 81 mg at 03/07/20 0850 atorvastatin (LIPITOR) tablet 40 mg, 40 mg, Oral, QHS, Carrie Adorno MD, 40 mg at 03/06/20 2125 cyanocobalamin (VITAMIN B12) injection 1,000 mcg, 1,000 mcg, Subcutaneous, Q24H, Carrie Adorno MD, 1,000 mcg at 03/06/20 2126 dextrose 50 % in water (D50W) injection 25 mL, 25 mL, Slow IV Push, PRN, Carrie Adorno MD donepezil (ARICEPT) tablet 5 mg, 5 mg, Oral, QHS, Carrie Adorno MD, 5 mg at 03/06/202125 furosemide (LASIX) tablet 40 mg, 40 mg, Oral, QAM+PM, Carrie Adorno MD, 40 mg at 03/07/20850 glipiZIDE (GLUCOTROL) tablet 5 mg, 5 mg, Oral, BIDAC, Carrie Adorno MD, 5 mg at 03/07/20850 glucagon (GLUCAGEN DIAGNOSTIC KIT) injection 1 mg, 1 mg, Intramuscular, PRN, Carrie Adorno MD heparin (porcine) injection 5,000 Units, 5,000 Units, Subcutaneous, Q8H, Carrie Adorno MD, 5,000 Units at 03/07/2014 insulin glargine (LANTUS U-100) injection 10 Units, 10 Units, Subcutaneous, QHS, Carrie Adorno MD, 10 Units at 03/06/202125 magnesium oxide (MAG-OX 400) tablet 400 mg, 400 mg, Oral, BID, Carrie Adorno MD, 400 mg at 03/07/20850 memantine (NAMENDA) tablet 10 mg, 10 mg, Oral, DAILY, Carrie Adorno MD, 10 mg at 03/07/20851 metoprolol succinate XL (TOPROL XL) tablet 25 mg, 25 mg, Oral, BID, Carrie Adorno MD, 25 mg at 03/07/20851 OLANZapine (ZyPREXA) tablet 2.5 mg, 2.5 mg, Oral, QHS, Carrie Adorno MD, 2.5 mg at 03/06/202124 ondansetron (ZOFRAN (PF)) injection 4 mg, 4 mg, Slow IV Push, Q6HPRN, Carrie Adorno MD ranolazine (RANEXA) 12 hr tablet 500 mg, 500 mg, Oral, Q12H, Carrie Adorno MD, 500 mg at 03/07/20 08 Sliding Scale Insulin-Regular + Fsbg Testing, , Subcutaneous, AC+HS, Carrie Adorno MD, Stopped at 03/07/20 0730 spironolactone (ALDACTONE) tablet 12.5 mg, 12.5 mg, Oral, DAILY, Carrie Adorno MD, 12.5 mg at03/07/20 0853 Impression: ALBA in the setting of hypotension.improving CKD III with proteinuria. Systolic CHF, chronic. 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 P/ Continue current POC and Medications other than changes listed below. Please see chart and orders for complete details. Close monitoring of hypotension Off ACEI Continue cautious diuresis with lasix and spironolactone Follow up closely Continue PT Carrie Rothman, PT - 03/07/2020 2:37 PM CDT Physical Therapy Progress Note: Recommendations: Primary discharge plan: home with caregiver Equipment recommendations: Standard Walker, Wheelchair PAIN: denies pain PRECAUTIONS: Weight Bearing Precaution: NA General Precautions: General, Fall Bracing/Cast present or required:N/A S: Patient agreeable to working with PT. O: Patient met Semi reclined in bed. Patient seen for the following: Bed mobility: - Supine to sit: Modified independent - Scooting to edge of bed: Modified independent - Sit to supine: Modified independent Transfers: Sit to stand: Modified independent using Rolling Walker Stand to sit: Modified independent using Rolling Walker Static/dynamic standing balance: Fair+ Verbal cueing provided for correct hand placement and correct use of AD Gait: Assisted patient with ambulation as follows: 80 feet using Rolling Walker and CGA Therapeutic exercise: instructed patient in the following: ankle pumps, long arc quads After session, patient Up in chair and call rojas provided. Denies pain after PT. A: Patient tolerated session well. P: PT to continue as planned. Carrie Cross,PT [place] License: [id number] ai, MD Ally - 03/07/2020 8:48 AM CDT [facility] Cardiology progress note Date of Service: 03/07/2020 Demetrius Sarmiento is an 79 years old male hospitalized for chest pain. Stated that he has no chest pain today. BP is better. PHYSICAL EXAM Vitals: 03/06/20 2023 03/06/20 2351 03/07/20 0413 03/07/20 0752 BP: 102/64 113/78 111/66 122/74 Pulse: 75 82 88 80 Resp: 18 18 18 18 Temp: 37.2 C (98.9 F) 37.1 C (98.7 F) 36.4 C (97.6 F) 36.6 C (97.8 F) TempSrc: Temporal Artery Temporal Artery Temporal Artery Temporal Artery SpO2: 97% 96% 95% 97% Weight: Height: General: alert and oriented x 3 (person, place and date/time); no apparent distress HEENT: normocephalic atraumatic Neck: [...] patient's labs. ASSESSMENT AND PLAN Principal Problem: Chest pain due to CAD Active Problems: Elevated troponin I level Coronary artery disease involving asa'[place] coronary artery of asa'cars[place]iut heart with angina pectoris Stage 3 chronic kidney disease Essential hypertension Type 2 diabetes mellitus without complication, without long-term current use of insulin Chronic combined systolic and diastolic congestive heart failure ALBA (acute kidney injury) Chest pain Chest pain with mild troponin elevation--NSTEMI. Underlying significant CAD. Treatment is challenging given relative low BP and refractory nature. Continue Imdur and ranexa as tolerated. If needed, cantitrate up Ranexa and Imdur. We have stopped lisinopril due to relative low BP. Chronic HFrEF--No significant volume overload. Will continue maintenance dose of PO lasix as tolerated. On metoprolol. Off lisinopril. On spironolactone--can discontinue if BP remains low or for up-titration of Imdur. Low salt diet. Fluid restriction. CAD--h/o PCI. On lipitor/metoprolol. On ASA 81 mg daily. Significant LAD and RCA disease on medical therapy. ALBA--suspect due to low BP and reduced perfusion.Improving. Ally Parkinson MD, FAC, VERONIKA Heating Unit Mechanic, Division of Cardiology [facility] Fern Hall RN - 03/06/2020 2:43 PM CDTI, BERNADINE WOOTEN, BOGDAN, after reviewing this case with the Beauty Parlor Cleaner, I concur this case is appropriate for inpatient admission. The change to inpatient admission is based on the level of care this patient is receiving, medical necessity, risks associated and the expected duration of stay. The inpatient admission order has been entered. Fern Pereria RN, BSN Utilization Review [facility] Office: [phone] Kalin Raphael RN - 03/06/2020 1:38 PM CDT Care Management Discharge Disposition Note (DCDN) 5-2-1 Interventions: Clear discharge plan 5-2-1 Providers: Beauty Parlor Cleaner/Supervisor Accounts Receivable 5-2-1 Patient Capacity Improvements: Discharge Plan for ongoing care and services: Home Health () Is this a new referral: No, return to previous provider Patient Choice completed for referred services: Return to previous provider DME location: Other DME location: Durable Medical Equipment: Home Health location: [address] () [phone] () [phone] Discharge location(s): Home Health location: [address] () [phone] (F) [phone] Patient choice completed for referred services: Return to previous provider Discussed with patient/patients family involved in decision making: Yes Patient or family caregiver understands, and agrees with discharge plan. Community resources/referrals made or provided to patient: No Resources/Referrals: Transportation: Private Vehicle Mental Status: Alert & Oriented to Person,Place & Time Living Arrangement: Home Other living arrangement: Address of living arrangement: [address] [place], [place] [address] [place] Funding Resources: Medicare Replacement Nursing informed of discharge plan: Yes Name of RN informed: [place] Estimated discharge date: 03/06/20 Time: 1338 Additional Information: no CM/SW Name & Contact number: Kalin Carbajal RN Ph. Kalin Carbajal RN, BSN [facility] Beauty Parlor Cleaner O [phone] F [phone] The following information has been provided to the facility noted above: reason for the patient discharge or transfer; patients physical and psychosocial status; summary of care, treatment, servicesprovided to patient; and the patient progress toward goals. Bogdan Valentino MD - 03/06/2020 1:32 PM CDT [facility] Hospitalist Progress Note SUBJECTIVE: Chest pain improved today. CURRENT MEDICATIONS - reviewed. Current Facility-Administered Medications Medication Dose Route Frequency Last Rate Last Dose acetaminophen (TYLENOL) tablet 650 mg 650 mg Oral Q6HPRN aspirin chewable tablet 81 mg 81 mg Oral QAM WITH BREAKFAST 81 mg at 03/06/20 0821 atorvastatin (LIPITOR) tablet 40 mg 40 mg Oral QHS 40 mg at 03/05/202009 cyanocobalamin (VITAMIN B12) injection 1,000 mcg 1,000 mcg Subcutaneous Q24H 1,000 mcg at 03/05/202008 dextrose 50 % in water (D50W) injection 25 mL 25 mL Slow IV Push PRN donepezil (ARICEPT) tablet 5 mg 5 mg Oral QHS 5 mg at 03/05/202009 furosemide (LASIX) tablet 40 mg 40 mg Oral QAM+PM 40 mg at 03/06/20 0821 glipiZIDE (GLUCOTROL) tablet 5 mg 5 mg Oral BIDAC 5 mg at 03/06/20 0822 glucagon (GLUCAGEN DIAGNOSTIC KIT) injection 1 mg 1 mg Intramuscular PRN heparin (porcine) injection 5,000 Units 5,000 Units Subcutaneous Q8H 5,000 Units at 03/06/20 0821 insulin glargine (LANTUS U-100) injection 10 Units 10 Units Subcutaneous QHS magnesium oxide (MAG-OX 400) tablet 400 mg 400 mg Oral BID 400 mg at 03/06/20 0821 memantine (NAMENDA) tablet 10 mg 10 mg Oral DAILY 10 mg at 03/06/20 0821 metoprolol succinate XL (TOPROL XL) tablet 25 mg 25 mg Oral BID Stopped at 03/06/20 0800 OLANZapine (ZyPREXA) tablet 2.5 mg 2.5 mg Oral QHS 2.5 mg at 03/05/202008 ondansetron (ZOFRAN (PF)) injection 4 mg 4 mg Slow IV Push Q6HPRN ranolazine (RANEXA) 12 hr tablet 500 mg 500 mg Oral Q12H 500 mg at 03/06/20 0822 Sliding Scale Insulin-Regular + Fsbg Testing Subcutaneous AC+HS Stopped at 03/06/20 0730 spironolactone (ALDACTONE) tablet 12.5 mg 12.5 mg Oral DAILY Stopped at 03/06/20 0900 traMADol (ULTRAM) tablet 50 mg 50 mg Oral Q8HPRN 50 mg at 03/06/20 0003 PHYSICAL EXAM: BP 101/61 | Pulse 74 | Temp 36.4 C (97.6 F) (Temporal Artery) | Resp 18 | Ht 5' 8" (1.727 m) | Wt 162 lb (73.5 kg) | SpO2 91% | BMI 24.63 kg/m General: No respiratory distress Skin: No rash or lesions Neuro: AAOx3, no focal deficits Psych: Normal affect LABS/IMAGING - reviewed, pertinent results as below: CBC BMP PT/INR WBC (10*3/L) Date Value 03/06/2020 6.77 NA (mmol/L) Date Value 03/06/2020 136 No results found for: PT RBC (10*6/L) Date Value 03/06/2020 4.20 (L) K (mmol/L) Date Value 03/06/2020 4.1 INR (no units) Date Value 03/04/2020 1.1 PLT (10*3/L) Date Value 03/06/2020 204 CALCIUM (mg/dL) Date Value 03/06/2020 9.7 HGB (g/dL) Date Value 03/06/2020 13.1 CL (mmol/L) Date Value 03/06/2020 95 (L) aPTT HCT (%) Date Value 03/06/2020 37.2 (L) BUN (mg/dL) Date Value 03/06/2020 35 (H) APTT Patient (Seconds) Date Value 03/04/2020 27 CREATININE (mg/dL) Date Value 03/06/2020 1.67 (H) IMAGING- Hospital Encounter on 03/04/20 XR CHEST 1 VW Narrative PROCEDURE: XR CHEST 1 VW CLINICAL INDICATION: chest COMPARISON: 01/15/2020 TECHNIQUE: A frontal view of the chest was obtained FINDINGS: No focal consolidation, pleural effusion, or pneumothorax. The cardiac silhouette is mildly to moderately enlarged, unchanged. Atherosclerotic calcifications are seen in the aortic arch. No acute osseous abnormality. Spinal stimulator leads terminating over the mid to lower thoracic spine. Impression No acute cardiopulmonary process. Unchanged enlargement of the cardiac silhouette. Preliminary Report Dictated by Resident: Artemio Goodrich I, Lauro Aguilar MD., have reviewed this study and agree with the above report. ASSESSMENT/PLAN Demetrius Sarmiento is a 79 year old male with PMH as listed above, admitted to the hospital with: Stable angina Chronic recurrent chest pain with recurrent hospitalizations. Has end-stage CAD. Discussed with Dr. Costello - last cath 6 months ago with no further intervention. Medically manage. Increased imdur to 60 mg but hypotensive overnight so will hold On metoprolol, ranolazine Patient refuses placement for inpatient rehab Will discuss with Dr. Costello Cardiology consulted ALBA Likely 2/2 hypotension Hold imdur, lisinopril Nephro consult Generalized weakness PT consult Chronic systolic CHF On furosemide, spironolactone, lisinopril IDDM On lantus, glipizide B12 deficiency On supplement Prophylaxis: DVT- heparin Stress Ulcer: no indication for prophylaxis Code Status: Full Disposition: Home tomorrow [place] [employer] COMPENSATION CLAIMS ADJUSTER was verified during stay Bogdan Harris MD MATCriya, MD Ally - 03/06/2020 8:32 AM CDT [facility] Cardiology progress note Date of Service: 03/06/2020 Demetrius Sarmiento is an 79 years old male hospitalized for chest pain. Stated that he has no chest pain today. BP is low with uptrending BUN and Cr. PHYSICAL EXAM Vitals: 03/05/20 2013 03/05/20 2359 03/06/20 0328 03/06/20 0735 BP: 90/63 105/73 (!) 89/51 102/69 Pulse: 93 73 68 72 Resp: 18 18 18 18 Temp: 36.3 C (97.3 F) 36.3 C (97.3 F) 36.1 C (97 F) 36.9 C (98.4 F) TempSrc: Temporal Artery Temporal Artery Temporal Artery Temporal Artery SpO2: 97% 96% 95% 92% Weight: Height: General: alert and oriented x 3 (person, place and date/time); no apparent distress HEENT: normocephalic atraumatic Neck: [...] patient's labs. ASSESSMENT AND PLAN Principal Problem: Chest pain due to CAD Active Problems: Elevated troponin I level Coronary artery disease involving [place] coronary artery of [place] heart with angina pectoris Stage 3 chronic kidney disease Essential hypertension Type 2 diabetes mellitus without complication, without long-term current use of insulin Chronic combined systolic and diastolic congestive heart failure ALBA (acute kidney injury) Chest pain with mild troponin elevation--NSTEMI. Underlying significant CAD. Treatment is challenging given relative low BP and refractory nature. Continue Imdur and ranexa as tolerated. If needed, cantitrate up Ranexa and Imdur and stop lisinopril for titration. Chronic HFrEF--No significant volume overload. Will continue maintenance dose of PO lasix as tolerated. On metoprolol. On lisinopril/spironolactone--can discontinue if BP remains low or for up-titration of Imdur. Low salt diet. Fluid restriction. CAD--h/o PCI. On lipitor/metoprolol. On ASA 81 mg daily. Significant LAD and RCA disease on medical therapy. ALBA--suspect due to low BP and reduced perfusion. Ally Parkinson MD, FACC, VERONIKA Heating Unit Mechanic, Division of Cardiology [facility] Bogdan Valentino MD - 03/05/2020 5:48 PM CDT [facility] Hospitalist Progress Note SUBJECTIVE: Chest pain improved today. CURRENT MEDICATIONS - reviewed. Current Facility-Administered Medications Medication Dose Route Frequency Last Rate Last Dose [START ON 03/06/2020] isosorbide mononitrate (IMDUR) 24 hr tablet 60 mg 60 mg Oral DAILY acetaminophen (TYLENOL) tablet 650 mg 650 mg Oral Q6HPRN aspirin chewable tablet 81 mg 81 mg Oral QAM WITH BREAKFAST 81 mg at 03/05/20 0854 atorvastatin (LIPITOR) tablet 40 mg 40 mg Oral QHS cyanocobalamin (VITAMIN B12) injection 1,000 mcg 1,000 mcg Subcutaneous Q24H 1,000 mcg at 03/04/20 2348 dextrose 50 % in water (D50W) injection 25 mL 25 mL Slow IV Push PRN donepezil (ARICEPT) tablet 5 mg 5 mg Oral QHS furosemide (LASIX) tablet 40 mg 40 mg Oral QAM+PM Stopped at 03/05/20 1700 glipiZIDE (GLUCOTROL) tablet 5 mg 5 mg Oral BIDAC 5 mg at 03/05/20 1637 glucagon (GLUCAGEN DIAGNOSTIC KIT) injection 1 mg 1 mg Intramuscular PRN heparin (porcine) injection 5,000 Units 5,000 Units Subcutaneous Q8H 5,000 Units at 03/05/20 1637 insulin glargine (LANTUS U-100) injection 10 Units 10 Units Subcutaneous QHS lisinopril (PRINIVIL,ZESTRIL) tablet 5 mg 5 mg Oral DAILY 5 mg at 03/05/20 0854 magnesium oxide (MAG-OX 400) tablet 400 mg 400 mg Oral BID 400 mg at 03/05/20 0854 memantine (NAMENDA) tablet 10 mg 10 mg Oral DAILY 10 mg at 03/05/20 0854 metoprolol succinate XL (TOPROL XL) tablet 25 mg 25 mg Oral BID 25 mg at 03/05/20 0854 morpHINE injection 4 mg 4 mg Slow IV Push Q4HPRN OLANZapine (ZyPREXA) tablet 2.5 mg 2.5 mg Oral QHS ondansetron (ZOFRAN (PF)) injection 4 mg 4 mg Slow IV Push Q6HPRN ranolazine (RANEXA) 12 hr tablet 500 mg 500 mg Oral Q12H 500 mg at 03/05/20 0854 Sliding Scale Insulin-Regular + Fsbg Testing Subcutaneous AC+HS spironolactone (ALDACTONE) tablet 12.5 mg 12.5 mg Oral DAILY 12.5 mg at 03/05/20 0854 traMADol (ULTRAM) tablet 50 mg 50 mg Oral Q8HPRN 50 mg at 03/04/20 2348 PHYSICAL EXAM: BP 102/58 | Pulse 99 | Temp 36.6 C (97.8 F) (Tympanic) | Resp 18 | Ht 5' 8" (1.727 m) | Wt 162 lb (73.5 kg) | SpO2 96% | BMI 24.63 kg/m General: No respiratory distress Skin: No rash or lesions Neuro: AAOx3, no focal deficits Psych: Normal affect LABS/IMAGING - reviewed, pertinent results as below: CBC BMP PT/INR WBC (10*3/L) Date Value 03/05/2020 5.10 NA (mmol/L) Date Value 03/05/2020 139 No results found for: PT RBC (10*6/L) Date Value 03/05/2020 4.37 K (mmol/L) Date Value 03/05/2020 4.1 INR (no units) Date Value 03/04/2020 1.1 PLT (10*3/L) Date Value 03/05/2020 195 CALCIUM (mg/dL) Date Value 03/05/2020 9.8 HGB (g/dL) Date Value 03/05/2020 13.6 CL (mmol/L) Date Value 03/05/2020 101 aPTT HCT (%) Date Value 03/05/2020 39.6 BUN (mg/dL) Date Value 03/05/2020 25 (H) APTT Patient (Seconds) Date Value 03/04/2020 27 CREATININE (mg/dL) Date Value 03/05/2020 1.22 IMAGING- Hospital Encounter on 03/04/20 XR CHEST 1 VW Narrative PROCEDURE: XR CHEST 1 VW CLINICAL INDICATION: chest COMPARISON: 01/15/2020 TECHNIQUE: A frontal view of the chest was obtained FINDINGS: No focal consolidation, pleural effusion, or pneumothorax. The cardiac silhouette is mildly to moderately enlarged, unchanged. Atherosclerotic calcifications are seen in the aortic arch. No acute osseous abnormality. Spinal stimulator leads terminating over the mid to lower thoracic spine. Impression No acute cardiopulmonary process. Unchanged enlargement of the cardiac silhouette. Preliminary Report Dictated by Resident: Artemio Goodrich I, Lauro Aguilar MD., have reviewed this study and agree with the above report. ASSESSMENT/PLAN Demetrius Sarmiento is a 79 year old male with PMH as listed above, admitted to the hospital with: Stable angina Chronic recurrent chest pain. Has end-stage CAD. Discussed with Dr. Costello - last cath 6 months ago with no further intervention. Medically manage. Increase imdur to 60 mg On metoprolol, ranolazine Patient refuses placement for inpatient rehab Will discuss with Dr. Costello tomorrow Chronic systolic CHF On furosemide, spironolactone, lisinopril IDDM On lantus, glipizide B12 deficiency On supplement Prophylaxis: DVT- heparin Stress Ulcer: no indication for prophylaxis Code Status: Full Disposition: Home tomorrow [place] [employer] COMPENSATION CLAIMS ADJUSTER was verified during stay Bogdan Harris MD Kalin Raphael RN - 03/05/2020 10:03 AM CDT Care Management Discharge Disposition Note (DCDN) 5-2-1 Interventions: Clear discharge plan 5-2-1 Providers: Beauty Parlor Cleaner/Supervisor Accounts Receivable 5-2-1 Patient Capacity Improvements: Discharge Plan for ongoing care and services: Home Health (HH) Is this a new referral: No, return to previous provider Patient Choice completed for referred services: Return to previous provider DME location: Other DME location: Durable Medical Equipment: Home Health location: [address] () [phone] (F) [phone] Discharge location(s): Home Health location: [address] () [phone] (F) [phone] Patient choice completed for referred services: Return to previous provider Discussed with patient/patients family involved in decision making: Yes Patient or family caregiver understands, and agrees with discharge plan. Community resources/referrals made or provided to patient: No Resources/Referrals: Transportation: Private Vehicle Mental Status: Alert & Oriented to Person,Place & Time Living Arrangement: Home Other living arrangement: Address of living arrangement: [address] Bren[address]with Funding Resources: Medicare Replacement Nursing informed of discharge plan: Yes Name of RN informed: [place] Estimated discharge date: 03/05/20 Time: 1300 Additional Information: no CM/SW Name & Contact number: Kalin Carbajal RN Ph. Kalin Carbajal RN, BSN [facility] ADC Beauty Parlor Cleaner O [phone] The following information has been provided to the facility noted above: reason for the patient discharge or transfer; patients physical and psychosocial status; summary of care, treatment, servicesprovided to patient; and the patient progress toward goals. Kalin Raphael RN - 03/05/2020 9:22 AM CDTCare Management Social Functional Assessment Patient Name: Demetrius Sarmiento Age: [age] year old Sex: male Patient's Previous Admission Date at [facility]: 03/01/2020 Current diagnosis and co-morbidities: Chest pain due to cad Readmission Questions: Was patient discharged from any acute care hospital within the last 30 days: No Social Functional Assessment: Primary language spoken/preferred: [place] Mental Status: Alert & Oriented to Person,Place & Time Information given by: Child Name and phone number of person giving information: Ciera Sarmiento [phone] Patient's support system: Child Name and number of support system: Ciera Calderon9 [phone] Primary Correctional Officer Chief: Self MPOA: Same as support system Living Arrangement: Home Address of living arrangement : [address] Persons living in home: Same as support system Barriers to returning home: None Baseline functional status- ambulation: Independent Functional status-baseline personal care: Independent Baseline functional status- driving: Independent Baseline functional status- grocery shopping: Independent Functional status-baseline housekeeping: Independent Functional status-baseline meal prep: Independent Current functional status same as prior: Yes Do you have a PCP?: Yes Name of PCP: [facility] Agency: Yes Name of Home Health Agency: [address] (Ph) [phone] (F) [phone] Previous or current Home Health Care Agency: Current Provider Services: No DME Company: Yes Name of DME company: [facility] [address], [place] [address] (Ph) [phone] (F) [phone] Previous or current DME company: Current Equipment: O2: LPM;O2:Portable tank available;Wheelchair: Manual Hemodialysis: No Community resources utilized: None Funding Resources: Medicare Replacement Medicare Replacement name and information: [facility] Prescription coverage plan: Medicare Part D Pharm[facility] where meds are [facility] Anticipated services prior to disharge: Continue Medical Eval Expected mode of discharge transportation: Same as support system Additional info required for discharge planning: Pending medical evaluation Recommended discharge plan: Update/Resume HH orders SFA Complete: Social Functional Assessment complete: Yes Alcohol Use Screening (AUDIT-C) How often do you have a drink containing alcohol?: Never SCORE: 0 Role of Care Management explained. Yes Any issues or concerns with obtaining/affording your medications at home: no. Are you or your support system able to picket labor union medications at discharge: yes. Describe: Have you or family you live with or family that is with you here in the hospital had: ? Recent history of travel to a high-risk area: no (example [place], [place]) ? Recent sick contacts before or during admission: no ? Contact with a proven COVID-19 case: no ? Symptoms: fever, dry cough, fatigue, difficulty breathing: no ? Attended recent events with a gatherings of > 10 people: no Do you have at least 30 days of all your medications available? yes Do you have My Chart set up? no Patient notified that they may be receiving a call regarding a follow-up visit after discharge. Yes Visitor policy was reviewed with patient/family. yes Due to the no visitor policy is there anyone you would like to list that needs to be updated regarding your care and plan for discharge. Kalin Carbajal RN, BSN [facility] ADC Beauty Parlor Cleaner O [phone] . documented in this encounter Plan of Treatment Name Type Priority Associated Diagnoses Order S chedule CBC with Differential LAB Routine EVERY MORNING AT 0400 for 5 Occurrenc es starting 2019 until 0, 3 completed Basic Metabolic Panel (NA, LAB Routine E VERY MORNING AT 0400 K, CL, CO2, GLUCOSE, BUN, fo r 5 Occurrences CREATININE, CA) starting until 0, 3 completed Health Maintenance Due Date Last Done Comments [...] history exists LDL-C 01/15/2021 01/16/2020 CREATININE (SERUM) 03/06/2021 03/06/2020, 03/05/2020, 03/04/2020, Additional history exists documented as of this encounter Procedures Procedure Name Priority Date/Time Associated Diagnosis Comme nts POCT GLUCOSE Routine 03/07/2020 3:56 Results for this (AUTOMATED) PM CDT procedure are i n the results section. POCT GLUCOSE Routine 03/07/2020 10:34 Results for this (AUTOMATED) AM CDT procedure are i n the results section. POCT GLUCOSE Routine 03/07/2020 7:56 Results for this (AUTOMATED) AM CDT procedure are i n the results section. CBC WITH DIFFERENTIAL Routine 03/07/2020 5:14 Re sults for this AM CDT procedure are i n the results section. N-TERMINAL PRO-BNP Routine 03/07/2020 5:14 Resul ts for this AM CDT procedure are i n the results section. CBC WITH DIFFERENTIAL Routine 03/07/2020 5:14 Re sults for this AM CDT procedure are i n the results section. BASIC METABOLIC PANEL Routine 03/07/2020 5:14 Re sults for this (NA, K, CL, CO2, AM CDT procedure a re in GLUCOSE, BUN, the results CREATININE, CA) section. TROPONIN I Routine 03/07/2020 5:14 Results for this AM CDT procedure are i n the results section. URIC ACID Routine 03/07/2020 5:14 Results for this AM CDT procedure are i n the results section. POCT GLUCOSE Routine 03/06/2020 4:16 Results for this (AUTOMATED) PM CDT procedure are i n the results section. POCT GLUCOSE Routine 03/06/2020 11:10 Results for this (AUTOMATED) AM CDT procedure are i n the results section. POCT GLUCOSE Routine 03/06/2020 7:38 Results for this (AUTOMATED) AM CDT procedure are i n the results section. CBC WITH DIFFERENTIAL Routine 03/06/2020 3:51 Re sults for this AM CDT procedure are i n the results section. CBC WITH DIFFERENTIAL Routine 03/06/2020 3:51 Re sults for this AM CDT procedure are i n the results section. BASIC METABOLIC PANEL Routine 03/06/2020 3:51 Re sults for this (NA, K, CL, CO2, AM CDT procedure a re in GLUCOSE, BUN, the results CREATININE, CA) section. TROPONIN I Routine 03/06/2020 3:51 Results for this AM CDT procedure are i n the results section. POCT GLUCOSE Routine 03/05/2020 8:16 Results for this (AUTOMATED) PM CDT procedure are i n the results section. TROPONIN I Routine 03/05/2020 6:25 Results for this PM CDT procedure are i n the results section. POCT GLUCOSE Routine 03/05/2020 4:14 Results for this (AUTOMATED) PM CDT procedure are i n the results section. POCT GLUCOSE Routine 03/05/2020 11:39 Results for this (AUTOMATED) AM CDT procedure are i n the results section. POCT GLUCOSE Routine 03/05/2020 7:47 Results for this (AUTOMATED) AM CDT procedure are i n the results section. CBC WITH DIFFERENTIAL Routine 03/05/2020 4:50 Re sults for this AM CDT procedure are i n the results section. CBC WITH DIFFERENTIAL Routine 03/05/2020 4:50 Re sults for this AM CDT procedure are i n the results section. BASIC METABOLIC PANEL Routine 03/05/2020 4:50 Re sults for this (NA, K, CL, CO2, AM CDT procedure a re in GLUCOSE, BUN, the results CREATININE, CA) section. TROPONIN I Routine 03/05/2020 4:50 Results for this AM CDT procedure are i n the results section. EKG-12 LEAD Routine 03/04/2020 7:36 PM CDT EKG-12 LEAD Routine 03/04/2020 7:31 PM CDT CORONAVIRUS COVID-19 STAT 03/04/2020 7:03 Chest pain, Res ults for this TESTING PM CDT unspecified type procedure a re in the results section. XR CHEST 1 VW STAT 03/04/2020 6:58 Chest pain, Results fo r this PM CDT unspecified type procedure a re in the results section. CBC WITH DIFFERENTIAL STAT 03/04/2020 6:29 Chest pain, Re sults for this PM CDT unspecified type procedure a re in the results section. N-TERMINAL PRO-BNP STAT 03/04/2020 6:29 Chest pain, Resul ts for this PM CDT unspecified type procedure a re in the results section. ACTIVATED PARTIAL STAT 03/04/2020 6:29 Chest pain, Result s for this THRMPLAS JACEK PM CDT unspecified type procedure a re in the results section. PROTHROMBIN TIME / STAT 03/04/2020 6:29 Chest pain, Resul ts for this INR PM CDT unspecified type procedure a re in the results section. CBC WITH DIFFERENTIAL Routine 03/04/2020 6:29 Chest pain, Re sults for this PM CDT unspecified type procedure a re in the results section. BASIC METABOLIC PANEL STAT 03/04/2020 6:29 Chest pain, Re sults for this (NA, K, CL, CO2, PM CDT unspecified type procedu re are in GLUCOSE, BUN, the results CREATININE, CA) section. HEPATIC FUNCTION STAT 03/04/2020 6:29 Chest pain, Results for this PANEL (08528) PM CDT unspecified type procedure are in (ALB,T.PRO,BILI the results T,BU/BC,ALT,AST,ALK section. PHOS) TROPONIN I STAT 03/04/2020 6:29 Chest pain, Results for this PM CDT unspecified type procedure a re in the results section. LIPASE STAT 03/04/2020 6:29 Chest pain, Results for this PM CDT unspecified type procedure a re in the results section. EKG-12 LEAD Routine 03/04/2020 6:15 PM CDT EKG-12 LEAD STAT 03/04/2020 6:10 PM CDT EMERGENCY DEPARTMENT Routine 03/04/2020 12:01 DOCUMENTS AM CDT documented in this encounter Results POCT GLUCOSE (AUTOMATED) (03/07/2020 3:56 PM CDT) Pathologist Sig [employer] POCT GLU 216 (H) 70 - 110 mg/dL [facility] Specimen Blood Performing Organization Address [facility] Phone Number [facility] CLIA: [id number], [address] [address] POCT GLUCOSE (AUTOMATED) (03/07/2020 10:34 AM CDT) Pathologist Sig [employer] POCT GLU 168 (H) 70 - 110 mg/dL [facility] Specimen Blood Performing Organization Address City/[facility] Phone Number [facility] CLIA: [id number], [address] POCT GLUCOSE (AUTOMATED) (03/07/2020 7:56 AM CDT) Pathologist Sig [employer] POCT GLU 148 (H) 70 - 110 mg/dL [facility] Specimen Blood Performing Organization Address [facility] Phone Number [facility] CLIA: [id number], [address] CBC WITH DIFFERENTIAL (03/07/2020 5:14 AM CDT) Pathologist Sig [employer] WBC 5.59 4.20 - 10.70 [facility] 10*3/L [facility] RBC 4.23 (L) 4.26 - 5.52 [facility] 10*6/L [facility] HGB 13.5 12.2 - 16.4 [facility] g/dL [facility] HCT 37.2 (L) 38.4 - 49.3 % [facility] MCV 87.9 81.7 - 95.6 fL [facility] MCH 31.9 26.1 - 32.7 pg [facility] MCHC 36.3 (H) 31.2 - 35.0 [facility] g/dL [facility] RDW-SD 45.1 38.5 - 51.6 fL [facility] RDW-CV 14.2 12.1 - 15.4 % [facility] PLT 200 150 - 328 [facility] 10*3/L [facility] MPV 9.8 9.8 - 13.0 fL [facility] NRBC/100 WBC 0.0 0.0 - 10.0 /100 [facility] WBCs [facility] NRBC x10^3 <0.01 10*3/L [facility] GRAN MAT (NEUT) % 51.0 % [facility] IMM GRAN % 0.50 % [facility] LYMPH % 32.0 % [facility] MONO % 11.3 % [facility] EOS % 4.3 % [facility] BASO % 0.9 % [facility] GRAN MAT x10^3(ANC) 2.85 1.99 - 6.95 [facility] 10*3/uL [facility] IMM GRAN x10^3 0.03 0.00 - 0.06 [facility] 10*3/uL [facility] LYMPH x10^3 1.79 1.09 - 3.23 [facility] 10*3/uL HOSPITAL LAB[facility]ORY MONO x10^3 0.63 0.36 - 1.02 [facility] 10*3/uL [facility] EOS x10^3 0.24 0.06 - 0.53 [facility] 10*3/uL HOSPITAL LAB[facility]ORY BASO x10^3 0.05 0.01 - 0.09 [facility] 10*3/uL [facility] Specimen Blood - ARM, LEFT Performing Organization Address City/State/Zipcode Phone Number [facility] CLIA: [id number], [address], [place] [address] URIC ACID (03/07/2020 5:14 AM CDT) Pathologist Sig nature URIC ACID 5.4 3.6 - 8.0 mg/dL [facility] Specimen Blood - ARM, LEFT Performing Organization Address City/[facility] Phone Number [facility] CLIA: [id number], [address] N-TERMINAL PRO-BNP (03/07/2020 5:14 AM CDT) Pathologist Sig nature NT-proBNP 336 <=450 pg/mL [facility] Specimen Blood - ARM, LEFT Narrative Performed At Biotin has been reported to cause a negative [facility] bias, interpret results relative to patient's use of biotin. Performing Organization Address City/[facility] Phone Number [facility] CLIA: [id number], [address] TROPONIN I (03/07/2020 5:14 AM CDT) Pathologist Sig nature TROPONIN I 0.051 (H) <=0.034 ng/mL [facility] [...] patient's use of biotin. Performing Organization Address City/[facility] Phone Number [facility] CLIA: [id number], [address] Basic Metabolic Panel (NA, K, CL, CO2, GLUCOSE, BUN, CREATININE, CA) (03/07/2020 5:14 AM CDT) NA 138 135 - 145 [facility] mmol/L [facility] K 3.8 3.5 - 5.0 [facility] mmol/L [facility] CL 97 (L) 98 - 108 mmol/L [facility] CO2 TOTAL 30 23 - 31 mmol/L [facility] AGAP 11 2 - 16 [facility] BUN 36 (H) 7 - 23 mg/dL [facility] GLUCOSE 140 (H) 70 - 110 mg/dL [facility] CREATININE 1.50 (H) 0.60 - 1.25 [facility] mg/dL [facility] CALCIUM 10.0 8.6 - 10.6 [facility] mg/dL [facility] eGFR Calculation 45.0 mL/min/1.73m2 [facility] (Non[facility] LABORATORY [place]) eGFR Calculation 54.6 mL/min/1.73m2 [facility] () [facility] Specimen Blood - ARM, LEFT Narrative Performed At Association of Glomerular Filtration Rate (GFR) [facility] and Staging of Kidney Disease* [...] Number [facility] CLIA: [id number], [address], [place] [address] POCT GLUCOSE (AUTOMATED) (03/06/2020 4:16 PM CDT) [facility] POCT GLU 209 (H) 70 - 110 mg/dL [facility] Specimen Blood Performing Organization Address [facility] Phone Number [facility] CLIA: [id number], [address], [place] [address] POCT GLUCOSE (AUTOMATED) (03/06/2020 11:10 AM CDT) Pathologist Sig nature POCT GLU 254 (H) 70 - 110 mg/dL [facility] Specimen Blood Performing Organization Address [facility] Phone Number [facility] CLIA: [id number], [address] POCT GLUCOSE (AUTOMATED) (03/06/2020 7:38 AM CDT) Pathologist Sig nature POCT GLU 126 (H) 70 - 110 mg/dL [facility] Specimen Blood Performing Organization Address [facility] Phone Number [facility] CLIA: [id number], [address] CBC WITH DIFFERENTIAL (03/06/2020 3:51 AM CDT) Pathologist Sig [facility] WBC 6.77 4.20 - 10.70 [facility] 10*3/L [facility] RBC 4.20 (L) 4.26 - 5.52 [facility] 10*6/L [facility] HGB 13.1 12.2 - 16.4 [facility] g/dL [facility] HCT 37.2 (L) 38.4 - 49.3 % [facility] MCV 88.6 81.7 - 95.6 fL [facility] MCH 31.2 26.1 - 32.7 pg [facility] [facility] MCHC 35.2 (H) 31.2 - 35.0 [facility] g/dL [facility] RDW-SD 45.6 38.5 - 51.6 fL [facility] RDW-CV 14.3 12.1 - 15.4 % [facility] PLT 204 150 - 328 [facility] 10*3/L [facility] MPV 9.8 9.8 - 13.0 fL [facility] NRBC/100 WBC 0.0 0.0 - 10.0 /100 [facility] WBCs [facility]OS[facility] NRBC x10^3 <0.01 10*3/L [facility] GRAN MAT (NEUT) % 56.1 % [facility] IMM GRAN % 0.10 % [facility] LYMPH % 29.7 % [facility] MONO % 9.6 % [facility] EOS % 3.8 % [facility] BASO % 0.7 % [facility] GRAN MAT x10^3(ANC) 3.79 1.99 - 6.95 [facility] 10*3/uL [facility] IMM GRAN x10^3 <0.03 0.00 - 0.06 [facility] 10*3/uL [facility] LYMPH x10^3 2.01 1.09 - 3.23 [facility] 10*3/uL [facility] MONO x10^3 0.65 0.36 - 1.02 [facility] 10*3/uL [facility] EOS x10^3 0.26 0.06 - 0.53 [facility] 10*3/uL [facility] BASO x10^3 0.05 0.01 - 0.09 [facility] 10*3/uL [facility] Specimen Blood - ARM, LEFT Performing Organization Address City/State/Zipcode Phone Number [facility] CLIA: [id number], [address] [place] [address] [address] TROPONIN I (03/06/2020 3:51 AM CDT) Pathologist Sig nature TROPONIN I 0.056 (H) <=0.034 ng/mL [facility] Number [facility] CLIA: [id number], [address] [place] [address] Basic Metabolic Panel (NA, K, CL, CO2, GLUCOSE, BUN, CREATININE, CA) (03/06/2020 3:51 AM CDT) NA 136 135 - 145 [facility] mmol/L [facility] K 4.1 3.5 - 5.0 [facility] mmol/L [facility] CL 95 (L) 98 - 108 mmol/L [facility] CO2 TOTAL 30 23 - 31 mmol/L [facility] AGAP 11 2 - 16 [facility] BUN 35 (H) 7 - 23 mg/dL [facility] GLUCOSE 174 (H) 70 - 110 mg/dL [facility] CREATININE 1.67 (H) 0.60 - 1.25 [facility] mg/dL [facility] CALCIUM 9.7 8.6 - 10.6 [facility] mg/dL [facility] eGFR Calculation 39.8 mL/min/1.73m2 [facility] (Non-[facility] LABORATORY Ghanaian) eGFR Calculation 48.2 mL/min/1.73m2 [facility] () [facility] Specimen Blood - ARM, LEFT Narrative Performed At [facility] of Glomerular Filtration Rate (GFR) [facility] and Staging of Kidney Disease* [...] abnormalities in imaging tests). Performing Organization Address [facility] Phone Number [facility] CLIA: [id number], [address] [place] [address] POCT GLUCOSE (AUTOMATED) (03/05/2020 8:16 PM CDT) Pathologist Sig [employer] POCT GLU 208 (H) 70 - 110 mg/dL [facility] Specimen Blood Performing Organization Address [facility] Phone Number [facility] CLIA: [id number], [address] [place] [address] TROPONIN I (03/05/2020 6:25 PM CDT) Pathologist Sig [employer] TROPONIN I 0.047 (H) <=0.034 ng/mL [facility] Specimen Blood - ARM, RIGHT [...] patient's use of biotin. Performing Organization Address [facility] Phone Number [facility] CLIA: [id number], [address] [place] [address] POCT GLUCOSE (AUTOMATED) (03/05/2020 4:14 PM CDT) Pathologist Sig [employer] POCT GLU 234 (H) 70 - 110 mg/dL [facility] Specimen Blood Performing Organization Address [facility] Phone Number [facility] CLIA: [id number], [address] [place], [place] [address] POCT GLUCOSE (AUTOMATED) (03/05/2020 11:39 AM CDT) Pathologist Sig nature POCT GLU 258 (H) 70 - 110 mg/dL [facility] Specimen Blood Performing Organization Address City/[facility] Phone Number [facility] CLIA: [id number], [address] [place] [address] POCT GLUCOSE (AUTOMATED) (03/05/2020 7:47 AM CDT) Pathologist Sig nature POCT GLU 194 (H) 70 - 110 mg/dL [facility] Specimen Blood Performing Organization Address [facility] Phone Number [facility] CLIA: [id number], [address] [place] [address] CBC WITH DIFFERENTIAL (03/05/2020 4:50 AM CDT) Pathologist Sig [facility] WBC 5.10 4.20 - 10.70 [facility] 10*3/L [facility] RBC 4.37 4.26 - 5.52 [facility] 10*6/L [facility] HGB 13.6 12.2 - 16.4 g/dL [facility] HCT 39.6 38.4 - 49.3 % [facility] MCV 90.6 81.7 - 95.6 fL [facility] MCH 31.1 26.1 - 32.7 pg [facility] MCHC 34.3 31.2 - 35.0 g/dL [facility] RDW-SD 47.8 38.5 - 51.6 fL [facility] RDW-CV 14.4 12.1 - 15.4 % [facility] PLT 195 150 - 328 [facility] 10*3/L [facility] MPV 9.8 9.8 - 13.0 fL [facility] NRBC/100 WBC 0.0 0.0 - 10.0 /100 [facility] WBCs [facility]OSPITAL [facility]ORY NRBC x10^3 <0.01 10*3/L [facility] GRAN MAT (NEUT) % 48.8 % [facility] IMM GRAN % 0.20 % [facility] LYMPH % 34.7 % [facility] MONO % 10.8 % [facility] EOS % 4.9 % [facility] BASO % 0.6 % [facility] GRAN MAT x10^3(ANC) 2.49 1.99 - 6.95 [facility] 10*3/uL HOSPITAL LAB[facility]ORY IMM GRAN x10^3 <0.03 0.00 - 0.06 [facility] 10*3/uL [facility] LYMPH x10^3 1.77 1.09 - 3.23 [facility] 10*3/uL [facility] MONO x10^3 0.55 0.36 - 1.02 [facility] 10*3/uL HOSPITAL LAB[facility]ORY EOS x10^3 0.25 0.06 - 0.53 [facility] 10*3/uL [facility]ITAL [facility] BASO x10^3 0.03 0.01 - 0.09 [facility] 10*3/uL [facility] Specimen Blood - HAND, LEFT Performing Organization Address City/State/Zipcode Phone Number [facility] CLIA: [id number], [address] [place] [address] TROPONIN I (03/05/2020 4:50 AM CDT) Pathologist Sig nature TROPONIN I 0.071 [...] Number [facility] CLIA: [id number], [address] [facility] [place] [address] Basic Metabolic Panel (NA, K, CL, CO2, GLUCOSE, BUN, CREATININE, CA) (03/05/2020 4:50 AM CDT) [facility] NA 139 135 - 145 [facility] mmol/L [facility] K 4.1 3.5 - 5.0 [facility] mmol/L [facility] CL 101 98 - 108 mmol/L [facility] CO2 TOTAL 27 23 - 31 mmol/L [facility] AGAP 11 2 - 16 [facility] BUN 25 (H) 7 - 23 mg/dL [facility] GLUCOSE 243 (H) 70 - 110 mg/dL [facility] CREATININE 1.22 0.60 - 1.25 [facility] mg/dL [facility] CALCIUM 9.8 8.6 - 10.6 [facility] mg/dL [facility] eGFR Calculation 57.2 mL/min/1.73m2 [facility] (Non-[facility] LABORATORY Ghanaian) eGFR Calculation 69.3 mL/min/1.73m2 [facility] () [facility] Specimen Blood - HAND, LEFT Narrative Performed At [facility] Glomerular Filtration Rate (GFR) [facility] and Staging of Kidney Disease* [...] abnormalities in imaging tests). Performing Organization Address [facility] Phone Number [facility] CLIA: [id number], [address] [place], [place] [address] CORONAVIRUS COVID-19 TESTING (03/04/2020 7:03 PM CDT) Pathologist Sig nature SARS-CoV-2 Not Detected Not Detected [facility] Specimen Swab - NASOPHARYNGEAL SWAB Narrative Performed At ID NOW COVID-19 Assay is an isothermal nucleic [facility] acid amplification test intended for the qualitative detection of nucleic acid from SARS-CoV-2 viral RNA in nasopharyngeal ([employer]) specimens. It is used under Emergency Use [...] testing if clinically indicated. Performing Organization Address [facility] Phone Number [facility] CLIA: [id number], [address] [place], [place] [address] [facility] [address] XR CHEST 1 VW (03/04/2020 6:58 PM CDT) Specimen Impressions Performed At PACS/VR/DOSE No acute cardiopulmonary process. Unchanged enlargement of the cardiac fern houette. Preliminary Report Dictated by Resident: Artemio Goodrich I, Lauro Aguilar MD., have reviewed this study and agree with the above report. Narrative Performed At PROCEDURE: XR CHEST 1 VW PACS/VR/DOSE CLINICAL INDICATION: chest COMPARISON: 01/15/2020 TECHNIQUE: A frontal view of the chest w as obtained FINDINGS: No focal consolidation, pleural effusion , or pneumothorax. The cardiac silhouette is mildly to mode rately enlarged, unchanged. Atherosclerotic calcifications are seen in the aortic arch. No acute osseous abnormality. Spinal stimulator leads terminating over the mid to lower thoracic spine. Procedure Note [facility], Radiant Results Inft User - 2019 10:07 PM CDT PROCEDURE: XR CHEST 1 VW CLINICAL INDICATION: chest COMPARISON: 01/15/2020 TECHNIQUE: A frontal view of the chest w as obtained FINDINGS: No focal consolidation, pleural effusion , or pneumothorax. The cardiac silhouette is mildly to mode rately enlarged, unchanged. Atherosclerotic calcifications are seen in the aortic arch. No acute osseous abnormality. Spinal sti mulator leads terminating over the mid to lower thoracic spine. IMPRESSION No acute cardiopulmonary process. Unchanged enlargement of the cardiac fern houette. Preliminary Report Dictated by Resident: Artemio Goodrich I, Lauro Aguilar MD., have reviewed [facility] study and agree with the above report. Performing Organization Address City/State/Zipcode Phone Number PACS/VR/DOSE CBC WITH DIFFERENTIAL (03/04/2020 6:29 PM CDT) Pathologist Sig nature WBC 5.27 4.20 - 10.70 [facility] 10*3/L HOSPITAL LAB[facility]ATORY RBC 4.16 (L) 4.26 - 5.52 [facility] 10*6/L HOSPITAL LAB[facility]ORY HGB 13.2 12.2 - 16.4 [facility] g/dL [facility] HCT 37.6 (L) 38.4 - 49.3 % [facility] MCV 90.4 81.7 - 95.6 fL [facility] MCH 31.7 26.1 - 32.7 pg [facility] MCHC 35.1 (H) 31.2 - 35.0 [facility] g/dL HOSPITAL LAB[facility]ATORY RDW-SD 48.3 38.5 - 51.6 fL [facility] RDW-CV 14.7 12.1 - 15.4 % [facility] PLT 197 150 - 328 [facility] 10*3/L HOSPITAL LAB[facility]ATORY MPV 9.8 9.8 - 13.0 fL [facility] NRBC/100 WBC 0.0 0.0 - 10.0 /100 [facility] WBCs HOSPITAL LABORATORY NRBC x10^3 <0.01 10*3/L [facility] GRAN MAT (NEUT) % 60.1 % [facility] IMM GRAN % 0.20 % [facility] LYMPH % 26.4 % [facility] MONO % 9.9 % [facility] EOS % 2.8 % [facility] BASO % 0.6 % [facility] GRAN MAT x10^3(ANC) 3.17 1.99 - 6.95 [facility] 10*3/uL [facility] IMM GRAN x10^3 <0.03 0.00 - 0.06 [facility] 10*3/uL [facility] LYMPH x10^3 1.39 1.09 - 3.23 [facility] 103/uL [facility] MONO x10^3 0.52 0.36 - 1.02 [facility] 103/uL [facility] EOS x10^3 0.15 0.06 - 0.53 [facility] 10*3/uL [facility] BASO x10^3 0.03 0.01 - 0.09 [place] [address]/[facility] LABORATORY Specimen Blood - VENOUS Performing Organization Address City/State/Zipcode Phone Number [facility] CLIA: [id number], [address] [place] [address] N-TERMINAL PRO-BNP (03/04/2020 6:29 PM CDT) Pathologist Sig nature NT-proBNP 562 (H) <=450 pg/mL [facility] Specimen Blood - VENOUS Narrative Performed At [facility] has been reported to cause a negative [facility] bias, interpret results relative to patient's use of biotin. Performing Organization Address City/State/Zipcode Phone Number [facility] CLIA: [id number], [address] [place], [place] [address] Prothrombin Time (PT) / INR (03/04/2020 6:29 PM CDT) PROTIME PATIENT 13.9 12.0 - 14.7 [facility] LABORATORY INR 1.1Comment: Normal [facility] INR <1.1; Warfarin [facility] Therapeutic range LABORATORY 2.0 to 3.0 or 2.5 to 3.5, depending upon the indications. Specimen Blood - VENOUS Performing Organization Address [facility]/Zipcode Phone Number [facility] CLIA: [id number], [address] [place] [address] aPTT (03/04/2020 6:29 PM CDT) Pathologist Sig nature APTT Patient 27 23 - 38 Seconds [facility] Specimen Blood - VENOUS Narrative Performed At [facility] patient population mean normal value [facility] for aPTT is 30 seconds. Performing Organization Address [facility] Phone Number [facility] CLIA: [id number], [address] [place] [address] Troponin I (03/04/2020 6:29 PM CDT) [facility] TROPONIN I 0.056 (H) <=0.034 ng/mL [facility] patient's use of biotin. Performing Organization Address [facility] Phone Number [facility] CLIA: [id number], [address] [place] [address] Lipase Serum (03/04/2020 6:29 PM CDT) [facility] LIPASE 149 0 - 220 U/L [facility] Specimen Blood - VENOUS Performing Organization Address [facility] Phone Number [facility] CLIA: [id number], [address] [place] [address] Hepatic Function Panel (ALB, T.PRO, BILI T, BU/BC, ALT, AST, ALK PHOS) (03/04/2020 6:29 PM CDT) Pathologist Sig nature TOTAL BILI 1.1 0.1 - 1.1 mg/dL [facility] BILI UNCON 1.1 0.1 - 1.1 mg/dL [facility] BILI CONJ 0.0 0.0 - 0.3 mg/dL [facility] T PROTEIN 7.1 6.3 - 8.2 g/dL [facility] ALBUMIN 4.1 3.5 - 5.0 g/dL [facility] ALK PHOS 61 34 - 122 U/L [facility] ALTv 16 5 - 50 U/L [facility] AST(SGOT) 23 13 - 40 U/L [facility] Specimen Blood - VENOUS Performing Organization Address City/State/Zipcode Phone Number [facility] CLIA: [id number], [address] [place], [place] [address] LABORATORY [facility] Basic Metabolic Panel (NA, K, CL, CO2, GLUCOSE, BUN, CREATININE, CA) (03/04/2020 6:29 PM CDT) [facility] nature NA 139 135 - 145 [facility] mmol/L [facility] K 4.1 3.5 - 5.0 [facility] mmol/L [facility] CL 102 98 - 108 mmol/L [facility] CO2 TOTAL 29 23 - 31 mmol/L [facility] AGAP 8 2 - 16 [facility] BUN 23 7 - 23 mg/dL [facility] GLUCOSE 193 (H) 70 - 110 mg/dL [facility] CREATININE 1.25 0.60 - 1.25 [facility] mg/dL [facility] CALCIUM 9.7 8.6 - 10.6 [facility] mg/dL [facility] eGFR Calculation 55.6 mL/min/1.73m2 [facility] (Non-[facility] LABORATORY Ghanaian) eGFR Calculation 67.4 mL/min/1.73m2 [place] [facility] LABORATORY Specimen Blood - VENOUS Narrative Performed At [facility] Glomerular Filtration Rate (GFR) [facility] LABORATORY and Staging of Kidney Disease* + [...] Number [facility] CLIA: [id number], [address] [place], [place] [address] documented in this encounter Visit Diagnoses Diagnosis Chest pain due to CAD - Primary Chest pain, unspecified type Uncontrolled type 2 diabetes mellitus wi th hyperglycemia Elevated troponin Other abnormal blood chemistry Chronic combined systolic and diastolic congestive heart failure Chronic combined systolic and diastolic heart 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 Elevated troponin I level Other abnormal blood chemistry Essential hypertension Unspecified essential hypertension Stage 3 chronic kidney disease Type 2 diabetes mellitus without complic ation, without long-term current use of insulin ALBA (acute kidney injury) Acute kidney failure, unspecified documented in this encounter Administered Medications Medication Order MAR Action Action Date Dose Rate Site acetaminophen (TYLENOL) tablet 650 mg 650 mg, Oral, Q6HPRN, Starting Sun at 2134, Until Discontinued, Routine, Pain (scale 1-3) aspirin chewable tablet 81 mg Given 03/07/2020 8:50 AM CDT 81 mg 81 mg, Oral, QAM WITH BREAKFAST, First dose on 03/05/20 at 0800, Until Discontinued, Routine Given 03/06/2020 8:21 AM CDT 81 mg Given 03/05/2020 8:54 AM CDT 81 mg atorvastatin (LIPITOR) tablet 40 mg Given 03/06/2020 9:25 PM CDT 40 mg 40 mg, Oral, QHS, First dose on Thu03/05/20 at 2100, Until Discontinued, Routine Given 03/05/2020 8:10 PM CDT 40 mg cyanocobalamin (VITAMIN B12) Given 03/06/2020 9:26 PM CDT 1,000 mcg Left Arm injection 1,000 mcg 1,000 mcg, Subcutaneous, Q24H, First dose on 03/04/20 at 2200, Until Discontinued, Routine Given 03/05/2020 8:09 PM CDT 1,000 mcg Abdo men-SC Given 03/04/2020 11:48 PM CDT 1,000 mcg Left Upper Arm-SC dextrose 50 % in water (D50W) injection 25 mL 25 mL, Slow IV Push, PRN, Starting [place] at 2202, Until Discontinued, ADAMA, Blood Glucose < or = 70 mg/dL and patien t is unable to swallow or has mental status changes. donepezil (ARICEPT) tablet 5 mg Given 03/06/2020 9:26 PM CDT 5 mg 5 mg, Oral, QHS, First dose on Thu03/05/20 at 2100, Until Discontinued, Routine Given 03/05/2020 8:10 PM CDT 5 mg furosemide (LASIX) tablet 40 mg Given 03/07/2020 5:10 PM CDT 40 mg 40 mg, Oral, QAM+PM, First dose on Thu03/04/20 at 2200, Until Discontinued, Routine Given 03/07/2020 8:51 AM CDT 40 mg Given 03/06/2020 4:02 PM CDT 40 mg glipiZIDE (GLUCOTROL) tablet 5 mg 5 mg, Oral, DAILY, First dose on 02/15 at 0900, Until Discontinued, Routine glucagon (GLUCAGEN DIAGNOSTIC KIT) injec tion 1 mg 1 mg, Intramuscular, PRN, Starting [place] at 2202, Until Discontinued, ADAMA, Blood Glucose < or = 70 mg/dL and patient is unable to swallow or has mental changes. heparin (porcine) injection Given 03/07/2020 5:14 AM CDT 5,000 Units Abdomen-SC 5,000 Units 5,000 Units, Subcutaneous, Q8H, First dose on 03/04/20 at 2200, Until Discontinued, Routine Given 03/06/2020 9:26 PM CDT 5,000 Units Abdo men-SC Given 03/06/2020 4:02 PM CDT 5,000 Units Abdo men-SC insulin glargine (LANTUS U-100) Given 03/06/2020 9:26 PM CDT 10 Units Abdomen-SC injection 10 Units 10 Units, Subcutaneous, QHS, First dose on Thu03/05/20 at 2100, Until Discontinued, Routine magnesium oxide (MAG-OX 400) tablet 400 mg Given 03/07/2020 8:51 AM CDT 400 mg 400 mg, Oral, BID, First dose on Thu03/05/20 at 0800, Until Discontinued, Routine Given 03/06/2020 9:25 PM CDT 400 mg Given 03/06/2020 8:21 AM CDT 400 mg memantine (NAMENDA) tablet 10 mg Given 03/07/2020 8:52 AM CDT 10 mg 10 mg, Oral, DAILY, First dose on Thu03/05/20 at 0900, Until Discontinued, 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, 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 Restricted medication: MEGADC Given 03/06/2020 8:21 AM CDT 10 mg Given 03/05/2020 8:54 AM CDT 10 mg metoprolol succinate XL (TOPROL XL) tablet 25 Given 8:52 AM CDT 25 mg mg 25 mg, Oral, BID, First dose on Thu03/05/20 at 0800, Until Discontinued, Routine Given 03/05/2020 8:09 PM CDT 25 mg Given 03/05/2020 8:54 AM CDT 25 mg OLANZapine (ZyPREXA) tablet 2.5 mg Given 03/06/2020 9:25 PM CDT 2.5 mg 2.5 mg, Oral, QHS, First dose on Thu03/05/20 at 2100, Until Discontinued, Routine Given 03/05/2020 8:09 PM CDT 2.5 mg ondansetron (ZOFRAN (PF)) injection 4 mg 4 mg, Slow IV Push, Q6HPRN, Starting 03/04/20 at 21 34, Until Discontinued, Routine, Nausea and Vomiting (N/V) ranolazine (RANEXA) 12 hr tablet 500 mg Given 03/07/2020 8:52 AM CDT 500 mg 500 mg, Oral, Q12H, First dose on Thu03/05/20 at 0800, Until Discontinued, Routine Given 03/06/2020 9:25 PM CDT 500 mg Given 03/06/2020 8:22 AM CDT 500 mg Sliding Scale Insulin-Regular + Given 03/06/2020 9:26 PM CDT 4 Units Abdomen-SC Fsbg Testing Subcutaneous, AC+HS, First dose on Thu03/05/20 at 0730, Until Discontinued, Routine spironolactone (ALDACTONE) tablet 12.5 m g Given 03/07/2020 8:53 AM CDT 12.5 mg 12.5 mg, Oral, DAILY, First dose on Thu03/05/20 at 0900, Until Discontinued, Routine Given 03/05/2020 8:54 AM CDT 12.5 mg temazepam (RESTORIL) capsule 15 mg Given 03/06/2020 9:29 PM CDT 15 mg 15 mg, Oral, QHSPRN, Starting Thu03/06/20 at 2054, Until Discontinued, Routine, Insomnia Medication Order MAR Action Action Date Dose Rate Site glipiZIDE (GLUCOTROL) tablet 5 mg Given 03/07/2020 8:51 AM CDT 5 mg 5 mg, Oral, BIDAC, First dose on Thu03/05/20 at 0730, Until Discontinued, Routine Given 03/06/2020 4:02 PM CDT 5 mg Given 03/06/2020 8:22 AM CDT 5 mg isosorbide mononitrate (IMDUR) 24 hr tablet Given 03/05/2020 8:54 AM CDT 30 mg 30 mg 30 mg, Oral, DAILY, First dose on Thu03/05/20 at 0900, Until Discontinued, Routine isosorbide mononitrate (IMDUR) 24 hr tablet Given 03/05/2020 10:21 AM CDT 30 mg 30 mg 30 mg, Oral, ONCE, 1 dose, Thu03/05/20 at 1030, Routine isosorbide mononitrate (IMDUR) 24 hr tablet Given 03/06/2020 8:22 AM CDT 60 mg 60 mg 60 mg, Oral, DAILY, First dose on Thu03/06/20 at 0900, Until Discontinued, Routine lisinopril (PRINIVIL,ZESTRIL) tablet 5 m g Given 03/05/2020 8:54 AM CDT 5 mg 5 mg, Oral, DAILY, First dose on 03/05/20 at 0900, Until Discontinued, Routine traMADol (ULTRAM) tablet 50 mg Given 03/06/2020 12:03 AM CDT 50 mg 50 mg, Oral, Q8HPRN, Starting 03/04/20 at 2134, Until 03/06/20 at 2133, Routine, Pain (scale 4-6) Given 03/04/2020 11:48 PM CDT 50 mg documented in this encounter Insurance Payer Benefit Plan / Subscriber ID Effective Phone Address T e Group [facility] [id number] 2019-Pres [facility] [place] - HEALTHCARE ent Adv HM O MANAGED DUAL COMPLETE MEDICARE HMO [facility] MEDICAID OF xxxxxxxxx 2018-Pres [phone] [facility] ent [id number] [place] [address] documented as of this encounter
[2020-03-09 20:47] LABS: Protime INR 1.07
[2020-03-09 20:48] LABS: Absolute Lymphocytes (CBC) 2.4 K/uL (0.7-4.9); Basophils % 1.4 % (0-1.3); Hematocrit 36.7 % (39.6-49.0); Lymphocytes % 37.3 % (15.3-44.8); MPV 8.2 fL (7.6-11.3); RBC Red Blood Cell Count 4.01 M/uL (4.33-5.43)
[2020-03-09 21:07] LABS: Albumin 3.2 g/dL (3.4-5.0); Bilirubin Direct 0.3 mg/dL (0-0.2); Bilirubin Total 0.8 mg/dL (0.2-1.0); Magnesium 2.1 mg/dL (1.8-2.4); Protein, Total 6.5 g/dL (6.4-8.2); Troponin (Emerg Dept Use Only) 0.04 ng/mL (0.0-0.045)
[2020-03-09] MEDS ORDERED: NA CHLORIDE 0.9% 1,000 ML ONE (21:21)
[2020-03-09] MEDS ORDERED: ACETAMINOPHEN 500 MG TAB PO PRN (23:47)
--- NOTE | 2020-03-09 23:50 | EDPHYS ---
Physician Documentation [facility] Name: Demetrius Sarmiento Age: 79 yrs Sex: Male : 1940 Arrival Date: 03/09/2020 Time: 20:22 Bed 14 Private MD: ED Physician Esteban Martinez HPI: 03/09 21:29 This 79 yrs old Male presents to ER via EMS with complaints of Chest Pain and kdr back pain. 21:29 The patient or guardian reports chest pain that is located primarily in the substernal kdr area, anterior chest wall, chest diffusely. Onset: just prior to arrival. The pain radiates to back, Radiates to between his back. Associated signs and symptoms: Pertinent positives: shortness of breath, Pertinent negatives: diaphoresis, dizziness, headache, lower extremity pain, lower extremity swelling, lightheadedness, nausea, near syncope, palpitations. The chest pain is described as aching, dull. Duration: The patient or guardian reports a single episode, that is now resolved, Still c/o back pain but chest pain has resolved. Historical: - Allergies: 03/10 00:17 No Known Allergies; ea - PMHx: 00:17 CHF; chronic kidney disease; Hypertension; Diabetes - IDDM; ea - PSHx: 00:17 heart stents; ea - Immunization history:: Adult Immunizations up to date. - Social history:: Smoking status: Patient denies any tobacco usage or history of. ROS: 03/09 21:59 Constitutional: Negative for fever, chills, and weight loss, Eyes: Negative for injury, kdr pain, redness, and discharge, ENT: Negative for injury, pain, and discharge, Neck: Negative for injury, pain, and swelling, Respiratory: Negative for shortness of breath, cough, wheezing, and pleuritic chest pain, Abdomen/GI: Negative for abdominal pain, nausea, vomiting, diarrhea, and constipation, : Negative for injury, bleeding, discharge, and swelling, MS/Extremity: Negative for injury and deformity, Skin: Negative for injury, rash, and discoloration, Neuro: Negative for headache, weakness, numbness, tingling, and seizure activity. Psych: Negative for depression, anxiety, suicide ideation, homicidal ideation, and hallucinations, Allergy/Immunology: Negative for hives, rash, and allergies, Endocrine: Negative for neck swelling, polydipsia, polyuria, polyphagia, and marked weight changes, Hematologic/Lymphatic: Negative for swollen nodes, abnormal bleeding, and unusual bruising. Cardiovascular: Positive for chest pain, Negative for edema, orthopnea, palpitations. Respiratory: Positive for shortness of breath, at rest. Negative for cough, hemoptysis, orthopnea, pleurisy, sputum production, wheezing. Exam: 21:59 Constitutional: This is a well developed, well nourished patient who is awake, alert, kdr and in no acute distress. Head/Face: Normocephalic, atraumatic. Eyes: Pupils equal round and reactive to light, extra-ocular motions intact. Lids and lashes normal. Conjunctiva and sclera are non-icteric and not injected. Cornea within normal limits. Periorbital areas with no swelling, redness, or edema. Neck: Trachea midline, no thyromegaly or masses palpated, and no cervical lymphadenopathy. Supple, full range of motion without nuchal rigidity, or vertebral point tenderness. No Meningismus. Chest/axilla: Normal chest wall appearance and motion. Nontender with no deformity. No lesions are appreciated. Cardiovascular: Regular rate and rhythm with a normal S1 and S2. No gallops, murmurs, or rubs. Normal PMI, no JVD. No pulse deficits. Respiratory: Lungs have equal breath sounds bilaterally, clear to auscultation and percussion. No rales, rhonchi or wheezes noted. No increased work of breathing, no retractions or nasal flaring. Abdomen/GI: Soft, non-tender, with normal bowel sounds. No distension or tympany. No guarding or rebound. No evidence of tenderness throughout. Back: No spinal tenderness. No costovertebral tenderness. Full range of motion. Skin: Warm, dry with normal turgor. Normal color with no rashes, no lesions, and no evidence of cellulitis. MS/ Extremity: Pulses equal, no cyanosis. Neurovascular intact. Full, normal range of motion. Neuro: Awake and alert, GCS 15, oriented to person, place, time, and situation. Cranial nerves II-XII grossly intact. Motor strength 4+/5 in all extremities. Sensory grossly intact. Psych: Awake, alert, with orientation to person, place and time. Behavior, mood, and affect are within normal limits. Vital Signs: 20:22 BP 95 / 49; Pulse 79; Resp 18; Temp 98.3; Pulse Ox 99% ; Weight 76.2 kg; Height 5 ft. 7 ea in. (170.18 cm); Pain 2/10; 20:42 BP 86 / 45; Pulse 78; Resp 16; Pulse Ox 98% on R/A; ah 22:04 BP 89 / 59; Pulse 67; Resp 18; Pulse Ox 97% ; ea 22:42 BP 102 / 53; Pulse 52; Resp 18; Pulse Ox 96% ; ea 23:30 BP 100 / 59; Pulse 79; Resp 18; Pulse Ox 98% ; ea 03/10 00:13 BP 98 / 56; Pulse 55; Resp 18; Temp 98; Pulse Ox 96% on R/A; ea 00:52 BP 110 / 54; Pulse 55; Resp 18; Pulse Ox 96% on R/A; ea 03/09 20:22 Body Mass Index 26.31 (76.20 kg, 170.18 cm) ea MDM: 03/09 23:49 Patient medically screened. kdr 23:50 Data reviewed: vital signs, nurses notes, lab test result(s), EKG, radiologic studies. kdr Counseling: I had a detailed discussion with the patient and/or guardian regarding: the historical points, exam findings, and any diagnostic results supporting the discharge/admit diagnosis, lab results, radiology results, the need for further work-up and treatment in the hospital. 03/09 20:35 Order name: Basic Metabolic Panel [facility] 03/09 20:35 Order name: CBC with Diff; Complete Time: 21: [facility] 03/09 20:35 Order name: LFT's kdr 03/09 20:35 Order name: Magnesium kdr 03/09 20:35 Order name: NT PRO-BNP; Complete Time: 21: [facility] 03/09 20:35 Order name: PT-INR; Complete Time: 21:08 [facility] 03/09 20:35 Order name: Troponin (emerg Dept Use Only); Complete Time: 21:08 [facility] 03/09 20:36 Order name: Basic Metabolic Panel; Complete Time: 21:08 EDMS 03/09 20:36 Order name: Liver (Hepatic) Function; Complete Time: 21:08 EDMS 03/09 20:36 Order name: Magnesium; Complete Time: 21:08 [facility] 03/10 00:09 Order name: Basic Metabolic Panel [facility] 03/10 00:09 Order name: CBC with Automated Diff [facility] 03/10 00:09 Order name: Cortisol [facility] 03/10 00:09 Order name: Lipid Profile [facility] 03/09 20:35 Order name: XRAY Chest (1 view) [facility] 03/09 20:35 Order name: EKG; Complete Time: 20:36 [facility] 03/09 20:35 Order name: Cardiac monitoring; Complete Time: 20:41 [facility] 03/09 20:35 Order name: EKG - Nurse/Tech; Complete Time: 20:41 [facility] 03/09 20:35 Order name: IV Saline Lock; Complete Time: 20:41 [facility] 03/09 20:35 Order name: Labs collected and sent; Complete Time: 20:41 [facility] 03/09 20:35 Order name: O2 Per Protocol; Complete Time: 20:41 [facility] 03/09 22:09 Order name: Chest Abd Pelvis Wo Con [facility] 03/09 23:54 Order name: Echo with Doppler [facility] 03/09 23:54 Order name: EKG Electrocardiogram [facility] 03/09 23:54 Order name: EKG Electrocardiogram [facility] 03/10 00:09 Order name: Heart Healthy [facility] 03/10 00:09 Order name: PTT, Activated Partial Thromb [facility] 03/10 00:09 Order name: Troponin I [facility] 03/09 20:35 Order name: O2 Sat Monitoring; Complete Time: 20:41 kdr Administered Medications: 21:25 Drug: NS 0.9% 500 ml Route: IV; Rate: bolus; Site: right antecubital; 22:00 Follow up: Response: No adverse reaction; IV Status: Completed infusion; IV Intake: ea 500ml Disposition: 03/09/20 23:49 Hospitalization ordered by Jose Crenshaw for Observation. Preliminary diagnosis are Chest pain, unspecified, Upper back pain, Renal failure, Hypotension, Hypotension, unspecified. - Bed requested for Telemetry/MedSurg (observation). - Status is Observation. ea - Condition is Fair. - Problem is new. - Symptoms have improved. Signatures: Dispatcher [employer] [facility] Mary Arceo RN RN mw Rittger, Kevin, MD MD kdr Antunez, Elena, RN RN ea Harris, Amy, RN RN Corrections: (The following items were deleted from the chart) 22:06 21:59 Constitutional: This is a well developed, well nourished patient who is awake, kdr alert, and in no acute distress. Head/Face: Normocephalic, atraumatic. Eyes: Pupils equal round and reactive to light, extra-ocular motions intact. Lids and lashes normal. Conjunctiva and sclera are non-icteric and not injected. Cornea within normal limits. Periorbital areas with no swelling, redness, or edema. Neck: Trachea midline, no thyromegaly or masses palpated, and no cervical lymphadenopathy. Supple, full range of motion without nuchal rigidity, or vertebral point tenderness. No Meningismus. Chest/axilla: Normal chest wall appearance and motion. Nontender with no deformity. No lesions are appreciated. Cardiovascular: Regular rate and rhythm with a normal S1 and S2. No gallops, murmurs, or rubs. Normal PMI, no JVD. No pulse deficits. Respiratory: Lungs have equal breath sounds bilaterally, clear to auscultation and percussion. No rales, rhonchi or wheezes noted. No increased work of breathing, no retractions or nasal flaring. Abdomen/GI: Soft, non-tender, with normal bowel sounds. No distension or tympany. No guarding or rebound. No evidence of tenderness throughout. Back: No spinal tenderness. No costovertebral tenderness. Full range of motion. Skin: Warm, dry with normal turgor. Normal color with no rashes, no lesions, and no evidence of cellulitis. MS/ Extremity: Pulses equal, no cyanosis. Neurovascular intact. Full, normal range of motion. Neuro: Awake and alert, GCS 15, oriented to person, place, time, and situation. Cranial nerves II-XII grossly intact. Motor strength 5/5 in all extremities. Sensory grossly intact. Cerebellar exam normal. Normal gait. Psych: Awake, alert, with orientation to person, place and time. Behavior, mood, and affect are within normal limits. kdr 22:09 22:05 Angio Aorta For Dissection+CT.RAD.BRZ ordered. EDMS EDMS 23:50 23:49 Hospitalization Ordered by Jose Crenshaw MD for Observation. Preliminary kdr diagnosis is Chest pain, unspecified; Upper back pain, Renal failure. Bed requested for Telemetry/MedSurg (observation). Status is Observation. Condition is Fair. Problem is new. Symptoms have improved. kdr 03/10 00:02 03/09 23:50 03/09/2020 23:49 Hospitalization Ordered by Jose Crenshaw MD for mw Observation. Preliminary diagnosis is Chest pain, unspecified; Upper back pain, Renal failure; Hypotension; Hypotension, unspecified. Bed requested for Telemetry/MedSurg (observation). Status is Observation. Condition is Fair. Problem is new. Symptoms have improved. kdr 03/10 00:59 00:02 03/09/2020 23:49 Hospitalization Ordered by Jose Crenshaw MD for Observation. ea Preliminary diagnosis is Chest pain, unspecified; Upper back pain, Renal failure; Hypotension; Hypotension, unspecified. Bed requested for Telemetry/MedSurg (observation). Status is Observation. Condition is Fair. Problem is new. Symptoms have improved. mw
--- NOTE | 2020-03-09 23:50 | ER ---
Nurse's Notes [facility] Name: Demetrius Sarmiento Age: 79 yrs Sex: Male : 1940 Arrival Date: 03/09/2020 Time: 20:22 Bed 14 Private MD: Diagnosis: Chest pain, unspecified;Upper back pain, Renal failure;Hypotension;Hypotension, unspecified Presentation: 03/09 20:22 Chief complaint: EMS states: EMS reports he has been having chest pain for the past ea three days but today it radiated to his back. EMS reported pt BP was 80s/40s upon arrival, they initiated IVs and administered NS. Coronavirus screen: Proceed with normal triage. Ebola Screen: No symptoms or risks identified at this time. Initial Sepsis Screen: Does the patient meet any 2 criteria? No. Patient's initial sepsis screen is negative. Does the patient have a suspected source of infection? No. Patient's initial sepsis screen is negative. Risk Assessment: Do you want to hurt yourself or someone else? Patient reports no desire to harm self or others. Onset of symptoms was March 09, 2020. 20:22 Method Of Arrival: EMS: [facility] ea 20:22 Acuity: LANCE 3 ea Historical: - Allergies: 03/10 00:17 No Known Allergies; ea - PMHx: 00:17 CHF; chronic kidney disease; Hypertension; Diabetes - IDDM; ea - PSHx: 00:17 heart stents; ea - Immunization history:: Adult Immunizations up to date. - Social history:: Smoking status: Patient denies any tobacco usage or history of. Screenin/24 20:26 Abuse screen: Denies threats or abuse. Nutritional screening: No deficits noted. ea Tuberculosis screening: No symptoms or risk factors identified. Fall Risk IV access (20 points). Assessment: 20:25 General: Appears in no apparent distress. Behavior is cooperative. Pain: Complains of ah pain in thoracic area Pain does not radiate. Pain. Pain: Pain Quality of pain is described as aching. Pain: Pain began 2-3 days ago. Neuro: Level of Consciousness is awake, alert, obeys commands, Oriented to person, place, time, situation, Appropriate for age Speech is normal, Facial symmetry appears normal, Pupils are PERRLA. Cardiovascular: Reports chest pain, Heart tones S1 S2 Capillary refill < 3 seconds Patient's skin is warm and dry. Rhythm is sinus rhythm Chest pain is described as mild, quality is. Cardiovascular: Chest pain quality is heaviness, is located in. Respiratory: Airway is patent Respiratory effort is even, unlabored, Respiratory pattern is regular, symmetrical. Respiratory: Breath sounds are clear bilaterally. GI: Bowel sounds present X 4 quads. Abd is soft and non tender X 4 quads. Patient currently denies nausea. : No signs and/or symptoms were reported regarding the genitourinary system. EENT: No signs and/or symptoms were reported regarding the EENT system. Derm: No signs and/or symptoms reported regarding the dermatologic system. 21:12 Cardiovascular: Chest pain radiates back. 22:42 Reassessment: Patient and/or family updated on plan of care and expected duration. Pain ea level reassessed. Patient is alert, oriented x 3, equal unlabored respirations, skin warm/dry/pink. Pt returned from CT. Reports pain has decreased. 03/10 00:13 Reassessment: Patient and/or family updated on plan of care and expected duration. Pain ea level reassessed. Patient is alert, oriented x 3, equal unlabored respirations, skin warm/dry/pink. Pt denies chest pain at this time Patient denies pain at this time. 00:58 Reassessment: Patient and/or family updated on plan of care and expected duration. Pain ea level reassessed. Patient is alert, oriented x 3, equal unlabored respirations, skin warm/dry/pink. Pt admitted to second floor, left ED via stretcher per tech, pt tolerating well. Vital Signs: 03/09 20:22 BP 95 / 49; Pulse 79; Resp 18; Temp 98.3; Pulse Ox 99% ; Weight 76.2 kg; Height 5 ft. 7 ea in. (170.18 cm); Pain 2/10; 20:42 BP 86 / 45; Pulse 78; Resp 16; Pulse Ox 98% on R/A; ah 22:04 BP 89 / 59; Pulse 67; Resp 18; Pulse Ox 97% ; ea 22:42 BP 102 / 53; Pulse 52; Resp 18; Pulse Ox 96% ; ea 23:30 BP 100 / 59; Pulse 79; Resp 18; Pulse Ox 98% ; ea 03/10 00:13 BP 98 / 56; Pulse 55; Resp 18; Temp 98; Pulse Ox 96% on R/A; ea 00:52 BP 110 / 54; Pulse 55; Resp 18; Pulse Ox 96% on R/A; ea 03/09 20:22 Body Mass Index 26.31 (76.20 kg, 170.18 cm) ea ED Course: 03/09 20:22 Patient arrived in ED. ea 20:26 Triage completed. ea 20:26 Patient has correct armband on for positive identification. Placed in gown. Bed in low ea position. Call light in reach. Side rails up X2. library monitor on. 20:27 Arm band placed on right wrist. Patient placed in an exam room, on a stretcher, on ea pulse oximetry. 20:27 Maintain EMS IV. Dressing intact. Good blood return noted. Site clean \T\ dry. Gauge \T\ ea site: 18G to right and left AC. Patient maintains SpO2 saturation greater than 95% on room air. 20:31 Esteban Martinez MD is Attending Physician. kdr 20:36 Sirisha Sarmiento, RN is Primary Nurse. 20:51 XRAY Chest (1 view) In Process Unspecified. EDMS 22:44 Chest Abd Pelvis Wo Con In Process Unspecified. EDMS 23:27 Diet: Patient given snack. Patient given juice. Tolerated well. jp3 23:49 Jose Crenshaw MD is Hospitalizing Provider. kdr 03/10 00:12 No provider procedures requiring assistance completed. Patient admitted, IV remains in ea place. Administered Medications: 03/09 21:25 Drug: NS 0.9% 500 ml Route: IV; Rate: bolus; Site: right antecubital; 22:00 Follow up: Response: No adverse reaction; IV Status: Completed infusion; IV Intake: ea 500ml Intake: 22:00 IV: 500ml; Total: 500ml. ea Outcome: 23:49 Decision to Hospitalize by Provider. kdr 03/10 00:12 Instructed on the need for admit, Demonstrated understanding of ea 00:51 Admitted to Med/surg accompanied by tech, room 213, with chart, Report called to marlo Dowd RN 00:51 Condition: stable 00:59 Patient left the ED. ea Signatures: Dispatcher [employer] EDMS Esteban Martinez MD MD kdr Lorri Saldana RN RN marlo Elver Bateman jp3 Sirisha Sarmiento, RN RN ah
[2020-03-10] MEDS ORDERED: MIDODRINE HCL 5 MG TABLET PO ONE (01:00)
[2020-03-10 01:07] VITALS: BMI 25.9
[2020-03-10] MEDS: NA CHLORIDE 0.9% 1,000 ML IV SCH ×3 (01:23→19:40)
[2020-03-10 07:20] LABS: Absolute Lymphocytes (CBC) 1.7 K/uL (0.7-4.9); Basophils % 0.4 % (0-1.3); Hematocrit 36.2 % (39.6-49.0); Lymphocytes % 31.7 % (15.3-44.8); MPV 8.1 fL (7.6-11.3); RBC Red Blood Cell Count 3.92 M/uL (4.33-5.43)
--- NOTE | 2020-03-10 07:33 | EKG ---
Test Date: 2020-03-09 Test Time: 20:23:49 Paper Stacker: Lee Sarmiento MEASUREMENT RESULTS: Intervals: Rate: 78 WA: 170 QRSD: 98 QT: 428 QTc: 487 [employer]: P: 39 WA: 170 QRS: -63 T: 136 INTERPRETIVE STATEMENTS: Normal sinus rhythm Possible Left atrial enlargement Left axis deviation Left ventricular hypertrophy T wave abnormality, consider lateral ischemia Prolonged QT Abnormal ECG Compared to ECG 11/30/2007 05:37:47 Left-axis deviation now present Left ventricular hypertrophy now present Prolonged QT interval now present Myocardial infarct finding no longer present T-wave abnormality still present Possible ischemia still present Electronically Signed On 03-10-20 07:32:57 CDT by Gibson Davidson
[2020-03-10 07:42] LABS: Troponin I 0.05 ng/mL (0.0-0.045)
--- NOTE | 2020-03-10 07:42 | P.HP ---
Certification for Inpatient Patient admitted to: Observation With expected LOS: <2 Midnights Patient will require the following post-hospital care: None Practitioner: I am a practitioner with admitting privileges, knowledge of patient current condition, hospital course, and medical plan of care. Services: Services provided to patient in accordance with Admission requirements found in Title 42 Section 412.3 of the Code of Federal Regulations Patient History Date of Service: 03/09/20 Reason for admission: Chest pain rule out acute coronary syndrome; ALBA; dehydration History of Present Illness: Patient is a 79-year-old gentleman who presents to the emergency room with some chest discomfort. Patient also lethargic. Patient has been having some chest pain for the last 3 days. The pain started radiating to the right side of his back today so he came into the ER. In the emergency room his chest pain got better. But he still having some back discomfort and he had acute renal insufficiency. Patient will be admitted to the hospital for further evaluation. T's patient was severely hypotensive in the emergency room. This is most likely related to dehydration. He also uremic in his creatinine is elevated. Patient will be admitted to the hospital for further evaluation. Patient will be admitted for acute kidney injury and he will need some gentle hydration. Will monitor his blood pressure closely. If patient remains hypotensive he may need to go to the intensive care unit. Allergies No Known Allergies Allergy (Verified 03/10/20 01:08) Home Medications: Aspirin 1 tab PO DAILY 03/10/20 Atorvastatin Calcium 1 tab PO BEDTIME 03/10/20 Cholecalciferol (Vitamin D3) [Vitamin D3] 1 cap PO DAILY 03/10/20 Furosemide 1 tab PO DAILY 03/10/20 Insulin Glargine Human [Lantus*] 30 unit SQ DAILY 03/10/20 Insulin Lispro [Humalog] 4 units SQ TID 03/10/20 Magnesium Oxide 1 tab PO DAILY 03/10/20 Memantine HCl/Donepezil HCl [Namzaric 28 mg-10 mg Capsule] 1 cap PO DAILY 03/10/20 Metoprolol Tartrate 12.5 mg PO BID 03/10/20 Multivitamin [Multivitamins] 1 cap PO DAILY 03/10/20 Potassium Chloride 20 meq PO DAILY 03/10/20 Ranolazine [Ranolazine ER] 1 tab PO Q12H 04/25/20 Thiamine HCl [Vitamin B-1*] 1 tab PO DAILY 03/10/20 - Past Medical/Surgical History Has patient received pneumonia vaccine in the past: Yes Diabetic: Yes -: CHF -: HTN -: DM IDDM -: Heart Stents -: Solitary kidney -: stents - Family History Father Medical History: Heart disease - Social History Smoking Status: Never smoker Alcohol use: No CD- Drugs: No Caffeine use: Yes Place of Residence: Home Review of Systems is unable to be obtained Physical Examination - Vital Signs Temperature: 98.5 F Blood Pressure: 130/64 Pulse: 56 Respirations: 16 Pulse Ox (%): 98 - Physical Exam General: Alert, In no apparent distress, Confused, Other (Patient appears very fragile) HEENT: Atraumatic, PERRLA, Mucous membr. moist/pink, EOMI, Sclerae nonicteric Neck: Supple, 2+ carotid pulse no bruit, No LAD, Without JVD or thyroid abnormality Respiratory: Clear to auscultation bilaterally, Normal air movement Cardiovascular: Regular rate/rhythm, Normal S1 S2, Systolic murmur Gastrointestinal: Normal bowel sounds, Soft and benign, Non-distended, No tenderness Musculoskeletal: No clubbing, No swelling, No tenderness Integumentary: No rashes Neurological: Sensation intact, Cranial nerves 3-12 intact, Abnormal gait, Abnormal speech, Abnormal strength, Abnormal tone Lymphatics: No axilla or inguinal lymphadenopathy - Studies Laboratory Data (last 24 hrs) 03/09/20 20:35: PT 12.6 H, INR 1.07 03/09/20 20:35: WBC 6.4, Hgb 12.7 L, Hct 36.7 L, Plt Count 239 03/09/20 20:35: Sodium 140, Potassium 4.0, BUN 47 H, Creatinine 1.99 H, Glucose 108 H, Magnesium 2.1, Total Bilirubin 0.8, AST 23, ALT 25, Alkaline Phosphatase 64 Assessment & Plan - Problems (Diagnosis) (1) Chest pain, rule out acute myocardial infarction Current Visit: Yes Status: Acute (2) Dehydration Current Visit: Yes Status: Acute (3) Acute kidney injury Current Visit: Yes Status: Acute (4) Solitary kidney Current Visit: Yes Status: Acute (5) Hypotensive episode Current Visit: Yes Status: Acute - Plan Plan: 1. Serial troponins and EKG 2. Cardiology consultation 3. Echocardiogram 4. Anti-platelet therapy, anti coagulation, beta-raven, statin, and O2 as needed 5. IV hydration 6. Monitor neuro status closely 7. Monitor renal function closely 8. Continue monitoring hemodynamics closely as patient has remained hypotensive. 9. GI and DVT prophylaxis Discharge Plan: Home Plan to discharge in: 48 Hours - Advance Directives Does patient have a Living Will: Yes Does patient have a Durable POA for Healthcare: Yes - Code Status/Comfort Care Code Status Assessed: Yes Code Status: Full Code Critical Care: No Time Spent Managing PTS Care (In Minutes): 40
--- NOTE | 2020-03-10 07:47 | P.PN ---
Subjective Date of Service: 03/10/20 Subjective: No C/O voiced, Improving Patient still with some weakness and patient remains lethargic. Continue with hydration. Review of Systems 10-point ROS is otherwise unremarkable Physical Examination - Vital Signs Temperature: 98.5 F Blood Pressure: 130/64 Pulse: 56 Respirations: 16 Pulse Ox (%): 98 - Physical Exam General: Alert, In no apparent distress, Oriented x1, Confused Respiratory: Clear to auscultation bilaterally, Normal air movement Cardiovascular: Regular rate/rhythm, Normal S1 S2, No murmurs Gastrointestinal: Normal bowel sounds, Soft and benign, Non-distended, No tenderness Neurological: Cranial nerves 3-12 intact - Studies Laboratory Data (last 24 hrs) 03/09/20 20:35: PT 12.6 H, INR 1.07 03/09/20 20:35: WBC 6.4, Hgb 12.7 L, Hct 36.7 L, Plt Count 239 03/09/20 20:35: Sodium 140, Potassium 4.0, BUN 47 H, Creatinine 1.99 H, Glucose 108 H, Magnesium 2.1, Total Bilirubin 0.8, AST 23, ALT 25, Alkaline Phosphatase 64 Medications List Reviewed: Yes Assessment & Plan - Problems (Diagnosis) (1) Chest pain, rule out acute myocardial infarction Current Visit: Yes Status: Acute (2) Dehydration Current Visit: Yes Status: Acute (3) Acute kidney injury Current Visit: Yes Status: Acute (4) Solitary kidney Current Visit: Yes Status: Acute (5) Hypotensive episode Current Visit: Yes Status: Acute - Plan Plan: Continue with hydration; findings are below 1. Serial troponins and EKG are within normal limits 2. Cardiology consultation appreciated 3. Echocardiogram pending 4. Anti-platelet therapy, anti coagulation, beta-raven, statin, and O2 as needed 5. IV hydration- renal function has improved slightly. Blood pressure has also stabilized. 6. Monitor neuro status closely; neuro function is stable 7. Monitor renal function closely; renal function is stable 8. Continue monitoring hemodynamics closely as patient has remained hypotensive. Blood pressure has improved. Continue to monitor 9. GI and DVT prophylaxis Discharge Plan: Home Plan to discharge in: 24 Hours - Advance Directives Does patient have a Living Will: Yes Does patient have a Durable POA for Healthcare: Yes - Code Status/Comfort Care Code Status: Full Code Critical Care: No
[2020-03-10] MEDS: ENOXAPARIN 30 MG/0.3 ML SQ SCH (09:29)
[2020-03-10] MEDS: ASPIRIN EC 81 MG TAB PO SCH (09:30)
--- NOTE | 2020-03-10 11:16 | RAD REPORT ---
EXAM DESCRIPTION: [place] Single View03/09/2020 8:51 pm CLINICAL HISTORY: Chest pain COMPARISON: 2007 FINDINGS: The lungs appear clear of acute infiltrate. The heart is mildly enlarged IMPRESSION: No acute abnormalities displayed
[2020-03-10] MEDS: MULTIVITAMIN TAB PO SCH (12:00)
[2020-03-10] MEDS: MAGNESIUM OXIDE 400 MG TAB PO SCH (12:00)
--- NOTE | 2020-03-10 12:42 | CON ---
Date of Consultation: 03/10/2020 Admitted on 03/09/[address] Blandon' service. I saw the patient on 03/10/2020. Reason For Consultation: Chest pain. History Of Present Illness: Mr. Sarmiento is an 79-year-old white male who has had a history of coronar y artery disease in the past. He follows up with Dr. Costello in [place]. He has apparently had a car diac arrest in 1994 and 1998, both times, he underwent some stents. He has a history of congestive h eart failure, chronic renal insufficiency, diabetes, cholesterol, and dyslipidemia. He came in with substernal chest pain radiating to the back without any nausea, vomiting, diaphoresis, PND, orthopnea , pedal edema, palpitations, or syncope. His pain lasted about 30 minutes. His troponin was 0.05. EKG showed left ventricular hypertrophy. Chest x-ray was negative. His creatinine is 1.99. He is n ow symptom free. Past Medical History: As stated above. Allergies: NONE. Review of Systems: Negative. Social History: Negative. Family History: Noncontributory. Medications: At home include aspirin, Lipitor, Lasix, potassium, metoprolol, insulin, and Ranexa. Physical Examination: GENERAL: He appeared to be his stated age. His vital signs were stable. He was afebrile. He was in sinus rhythm. He was alert and oriented x3 . He was slightly hard of hearing. HEENT: Negative. Neck: Supple with no bruit. Chest: Clear. Cardiac: Regular rhythm and rate with an aortic sclerosis murmur. No gallops or rubs. Abdomen: Benign extremities: Revealed no clubbing, cyanosis, or edema. Pulses were present distall y bilaterally. Skin: Dry and intact. Neurological: He was not focal. Diagnostic Data: As stated earlier, chest x-ray and CT of his chest, abdomen, and pelvis are still p ending. Impression And Plan: Chest pain consistent with angina. Troponin is only 0.05. Creatinine is 1.99. He is at high risk for cardiac catheterization because of his creatinine. I prefer we treat him me dically. I think, we need to increase his metoprolol. Continue his Ranexa, aspirin, and Lipitor. T he patient is pain free and I think if he stays pain-free, can certainly go home later on today and f ollow up with Dr. Costello next week. If his pain continues or comes back, I will keep him in the hospi ruthie and plan a catheterization early next week. His blood pressure, dyslipidemia, diabetes, are well controlled. He is status post cardiac arrest in 1994 and 1998 status post multiple stents. He is u naware when his last cardiac workup was with Dr. Costello, but he just saw him a month ago. HARSHAD/AMINAH Voice ID: [id number] Report ID: [id number]
[2020-03-10] MEDS: THIAMINE HCL 100 MG TABLET PO SCH (15:22)
[2020-03-10] MEDS: VITAMIN D 1000 UNIT TAB PO SCH (15:22)
--- NOTE | 2020-03-10 18:30 | RAD REPORT ---
EXAM DESCRIPTION: CT - Chest Abd Pelvis Wo Con - 03/10/2020 1:52 am CLINICAL HISTORY: The patient is 79 years old and is Male; Chest pain radiating to back for last 3 d s [facility] MAIN TECHNIQUE: Axial computed tomography images of the chest, abdomen and pelvis without intravenous con trast. Sagittal and coronal reformatted images were created and reviewed. As a consequence of the lack of intravenous contrast, there is limited evaluation of the organs and soft tissues. This CT exam was performed using one or more of the following dose reduction techniques: automated exposure control, adjustment of the mA and/or kV according to patient size, and/or use of iterative reconstru ction technique. RADIATION DOSE: Total DLP is 1140.6 COMPARISON: No relevant prior studies available. FINDINGS: CHEST: LUNGS: Evaluation of the pulmonary parenchyma reveals no focal consolidation or suspicious pulmona ry nodules. There is a granuloma in the RIGHT lower lobe. PLEURAL SPACE: There are no pleural effusions identified. No pneumothorax. HEART: There are coronary artery calcifications noted. The heart size is enlarged. There is no pericardial effusion. ABDOMEN: LIVER: Unremarkable noncontrast appearance of the liver. GALLBLADDER AND BILE DUCTS: The gallbladder is contracted. No calcified stones. No ductal dilation. PANCREAS: Unremarkable. No ductal dilation. SPLEEN: Unremarkable. No splenomegaly. No splenic lesion noted. ADRENALS: Unremarkable. No mass. KIDNEYS AND URETERS: There is a solitary LEFT kidney. There is no nephrolithiasis or ureteral ob struction. STOMACH AND BOWEL: There is diverticulosis coli without diverticulitis. There is thickening like ly to represent circular muscular hypertrophy involving the sigmoid colon, without acute inflammation identified. There is no evidence of diverticulitis. There is no evidence of bowel obstruction. There is No oral contrast opacifying the bowel. PELVIS: APPENDIX: The appendix is not identified with certainty, although no definite signs of appendicitis are seen in its expected location. BLADDER: The urinary bladder is underdistended. No stones. REPRODUCTIVE: There is a penile pump present. The prostate gland is enlarged. CHEST, ABDOMEN and PELVIS: INTRAPERITONEAL SPACE: Unremarkable. No significant fluid collection. No free air. BONES/JOINTS: There has been posterior interbody lumbar fusion with laminectomies at L3-L5. There are posterior pedicle screws and short rods present. There are degenerative changes of the spine identified. There is an old appearing T8 inferior endplate osteoporotic compression fracture noted with s clerotic margins. There is no retropulsion. No dislocation. SOFT TISSUES: There is rectus diastases of the anterior abdominal wall. VASCULATURE: There are atheromatous vascular calcifications of the aortoiliac system. The unenhanced thoracic aorta is unremarkable without aneurysm. LYMPH NODES: There is no hilar, mediastinal or axillary lymphadenopathy although difficult to eval uate on noncontrast CT. TUBES, LINES AND DEVICES: There is a spinal stimulator device present. Battery pack is in the [facility] pregluteal region. IMPRESSION: There is a solitary LEFT kidney. There is no nephrolithiasis or ureteral obstruction involving this kidney. Otherwise unremarkable noncontrast CT of the chest, abdomen and pelvis with incidental fin dings as noted above. No evidence of pneumonia. Electronically signed by: Adi Kaur MD 03/09/2020 11:30 PM CDT Due to temporary technical issues with the PACS/Fluency reporting system, reports are being signed by the in house radiologist as a courtesy to ensure prompt reporting. The interpreting radiologist is f ully responsible for the content of the report.
[2020-03-10] MEDS ORDERED: ATORVASTATIN 40 MG TAB PO SCH (21:00)
[2020-03-10] MEDS ORDERED: TEMAZEPAM 15 MG CAP PO PRN (23:00)
[2020-03-11 01:42] VITALS: O2SAT 98
[2020-03-11] MEDS: NA CHLORIDE 0.9% 1,000 ML IV SCH (04:41)
[2020-03-11 05:17] LABS: Absolute Lymphocytes (CBC) 1.7 K/uL (0.7-4.9); MPV 8.5 fL (7.6-11.3); RBC Red Blood Cell Count 4.04 M/uL (4.33-5.43)
[2020-03-11 06:17] LABS: Magnesium 2.1 mg/dL (1.8-2.4); Potassium 3.8 mmol/L (3.5-5.1)
[2020-03-11 06:39] LABS: Folic Acid, (Folate) 18.1 ng/mL (3.1-17.5); Thyroid Stimulating Hormone 1.86 uIU/mL (0.360-3.740); Troponin I 0.06 ng/mL (0.0-0.045)
[2020-03-11] MEDS: VITAMIN D 1000 UNIT TAB PO SCH (08:26)
[2020-03-11] MEDS: MULTIVITAMIN TAB PO SCH (08:26)
[2020-03-11] MEDS: MAGNESIUM OXIDE 400 MG TAB PO SCH (08:26)
[2020-03-11] MEDS: THIAMINE HCL 100 MG TABLET PO SCH (08:26)
[2020-03-11] MEDS: ASPIRIN EC 81 MG TAB PO SCH (08:26)
--- NOTE | 2020-03-11 08:27 | P.DS ---
Discharge Date: 03/11/20 Disposition: ROUTINE DISCHARGE Discharge Condition: GOOD Reason for Admission: Chest pain rule out acute coronary syndrome; ALBA; dehydration - Problems (1) Chest pain, rule out acute myocardial infarction Current Visit: Yes Status: Acute (2) Dehydration Current Visit: Yes Status: Acute (3) Acute kidney injury Current Visit: Yes Status: Acute (4) Solitary kidney Current Visit: Yes Status: Acute (5) Hypotensive episode Current Visit: Yes Status: Acute Brief History of Present Illness: Patient is a 79-year-old gentleman who presents to the emergency room with some chest discomfort. Patient also lethargic. Patient has been having some chest pain for the last 3 days. The pain started radiating to the right side of his back today so he came into the ER. In the emergency room his chest pain got better. But he still having some back discomfort and he had acute renal i nsufficiency. Patient will be admitted to the hospital for further evaluation. T's patient was severely hypotensive in the emergency room. This is most likely related to dehydration. He also uremic in his creatinine is elevated. Patient will be admitted to the hospital for further evaluation. Patient will be admitted for acute kidney injury and he will need some gentle hydration. Will monitor his blood pressure closely. If patient remains hypotensive he may need to go to the intensive care unit. Vital Signs/Physical Exam: Temp Pulse Resp BP Pulse Ox 98.0 F 73 15 126/86 100 03/11/20 04:00 03/11/20 04:00 03/11/20 04:00 03/11/20 04:00 03/11/20 04:00 General: Alert, In no apparent distress, Oriented x3 Laboratory Data at Discharge: WBC 5.8 K/uL (4.3-10.9) 03/11/20 04:44 Hgb 12.6 g/dL (13.6-17.9) L 03/11/20 04:44 Hct 37.0 % (39.6-49.0) L 03/11/20 04:44 Plt Count 187 K/uL (152-406) 03/11/20 04:44 PT 12.6 SECONDS (9.5-12.5) H 03/09/20 20:35 INR 1.07 03/09/20 20:35 APTT 29.8 SECONDS (24.3-36.9) 03/10/20 07:09 Sodium 143 mmol/L (136-145) 03/11/20 04:44 Potassium 3.8 mmol/L (3.5-5.1) 03/11/20 04:44 BUN 22 mg/dL (7-18) H 03/11/20 04:44 Creatinine 1.30 mg/dL (0.55-1.3) 03/11/20 04:44 Glucose 207 mg/dL (74-106) H 03/11/20 04:44 Magnesium 2.1 mg/dL (1.8-2.4) 03/11/20 04:44 Magnesium Cancelled 03/11/20 04:44 Total Bilirubin 0.8 mg/dL (0.2-1.0) 03/09/20 20:35 AST 23 U/L (15-37) 03/09/20 20:35 ALT 25 U/L (12-78) 03/09/20 20:35 Alkaline Phosphatase 64 U/L (45-117) 03/09/20 20:35 Troponin I 0.06 ng/mL (0.0-0.045) H 03/11/20 04:44 Triglycerides 200 mg/dL (<150) H 03/10/20 07:09 Cholesterol 88 mg/dL (<200) 03/10/20 07:09 HDL Cholesterol 38 mg/dL (40-60) L 03/10/20 07:09 Cholesterol/HDL Ratio 2.32 03/10/20 07:09 Home Medications: Aspirin 1 tab PO DAILY 03/10/20 Atorvastatin Calcium 1 tab PO BEDTIME 03/10/20 Cholecalciferol (Vitamin D3) [Vitamin D3] 1 cap PO DAILY 03/10/20 Insulin Glargine Human [Lantus*] 30 unit SQ DAILY 03/10/20 Insulin Lispro [Humalog] 4 units SQ TID 03/10/20 Magnesium Oxide 1 tab PO DAILY 03/10/20 Memantine HCl/Donepezil HCl [Namzaric 28 mg-10 mg Capsule] 1 cap PO DAILY 03/10/20 Metoprolol Tartrate 12.5 mg PO BID 03/10/20 Multivitamin [Multivitamins] 1 cap PO DAILY 03/10/20 Ranolazine [Ranolazine ER] 1 tab PO Q12H 03/10/20 Thiamine HCl [Vitamin B-1*] 1 tab PO DAILY 03/10/20 Furosemide [Lasix] 20 mg PO DAILY #30 tab 03/11/20 Potassium Chloride [K-Dur] 10 meq PO DAILY #30 tab.er.prt 03/11/20 New Medications: Potassium Chloride [K-Dur] 10 meq PO DAILY #30 tab.er.prt Furosemide [Lasix] 20 mg PO DAILY #30 tab Patient Discharge Instructions: OK TO DC IV AND DC HOME. FOLLOW-UP WITH PRIMARY CARE PROVIDER IN 1-2 WEEKS. FOLLOW-UP WITH CARDIOLOGY IN 1-2 WEEKS. RETURN TO THE ER IF symptoms worsen. CALL or TEXT DR. PRATT AT [phone] IF ANY QUESTIONS REGARDING HOSPITAL STAY. PLEASE CALL THE FLOOR AT [phone] IF ANY MEDICATION OR NURSING QUESTIONS. Please arrange for home health prior to discharge as patient will need nursing evaluation and physical therapy Diet: AHA Activity: Fall precautions Time spent managing pt's care (in minutes): 35
[2020-03-11 08:57] VITALS: BP 137/60; TEMP 98
[2020-03-11] MEDS: ENOXAPARIN 30 MG/0.3 ML SQ SCH (09:00)
[2020-03-11] MEDS ORDERED: HOME MED 1 EA UNK (Cholecalciferol (Vitamin D3) [Vitamin D3] 1 CAP) PO SCH (09:00)
[2020-03-11] MEDS ORDERED: HOME MED 1 EA UNK (Magnesium Oxide [Magnesium Oxide] 1 TAB) PO SCH (09:00)
[2020-03-11] MEDS ORDERED: HOME MED 1 EA UNK (Multivitamin [Multivitamins] 1 CAP) PO SCH (09:00)
[2020-03-11] MEDS ORDERED: DONEPEZIL HCL PO SCH (09:00)
[2020-03-11] MEDS ORDERED: MEMANTINE HCL PO SCH (09:00)
--- NOTE | 2020-03-11 11:44 | PN ---
Date of Progress Note: 03/11/2020 Subjective: Mr. Sarmiento was admitted with chest pain. Troponin was 0.05. He has become asymptomatic over the last 24 hours. Troponin actually went down. Mr. Sarmiento has had a history of significant c oronary artery disease, status post cardiac arrest in 2004 and 1998. Both times, he underwent stent placement. He follows up with Dr. Costello. He has diabetes, hypertension, and dyslipidemia that are w ell controlled. Today, he is in no chest pain. He is in sinus rhythm. His examination is within no rmal limits. His last creatinine is 1.3. He is on aspirin. He is on Plavix. He is on Lipitor. He is on metoprolol. He is on Ranexa. I am comfortable with him going home. I would like him to doub le up his metoprolol from 12.5 mg b.i.d. to 25 mg b.i.d. and follow up with Dr. Costello in the near fut ure. HARSHAD/AMINAH Voice ID: [id number] Report ID: [id number]
--- NOTE | 2020-03-14 06:52 | EKG ---
Test Date: 2020-03-10 Test Time: 05:35:13 [employer] Tender: RT-O MEASUREMENT RESULTS: Intervals: Rate: 49 IN: 180 QRSD: 90 QT: 512 QTc: 462 [place]: P: 50 IN: 180 QRS: -59 T: 175 INTERPRETIVE STATEMENTS: Marked sinus bradycardia Left axis deviation Minimal voltage criteria for LVH, may be normal variant Septal infarct, age undetermined T wave abnormality, consider inferolateral ischemia Abnormal ECG Compared to ECG 03/09/2020 20:23:49 Myocardial infarct finding now present Sinus rhythm no longer present Prolonged QT interval no longer present T-wave abnormality still present Possible ischemia still present Electronically Signed On 03-14-20 06:49:34 CDT by Gibson Davidson
== END 2020-03-11 12:35 | disposition home or self-care (01) ==
LOC: ER 20:13 → ERHOLD 23:47 → 2ND 03-10 00:43
PROVIDERS: ADMIT Hospitalist; ATTEND Family Medicine
DX: R07.9 Chest pain, unspecified (principal); N17.9 Acute kidney failure, unspecified; E86.0 Dehydration; Q60.0 Renal agenesis, unilateral; I95.9 Hypotension, unspecified; I50.9 Heart failure, unspecified; I11.0 Hypertensive heart disease with heart failure; E11.9 Type 2 diabetes mellitus without complications; R53.1 Weakness; I25.10 Atherosclerotic heart disease of native coronary artery without angina pectoris
CPT/HCPCS: 36415; 71045; 71250; 74176; 80048; 80061; 80076; 82533; 82607; 82746; 83540; 83735; 83880; 84439; 84443; 84484; 85025; 85610; 85730; 93005; 96360; 99285; G0378; J1650; J7030

== ENCOUNTER 2020-03-17 04:20 | Inpatient (IN) | payer OTHER ==
--- OUTSIDE RECORDS SUMMARY | 2020-03-17 04:22 | XMS REPORT ---
:1940 Author Organization [facility] Address [address] [place] [address] Care Team Providers Name Role Phone Unavailable Unavailable Unavailable Problems Condition Condition Condition Status Onset Resolution Last Treatin g Comments Name Details Category Date Date Treatment Clinician Date Routine eye Routine eye Problem Active exam exam On home On home Problem Active oxygen oxygen therapy therapy Coronary Coronary Problem Active artery artery disease disease involving involving [place] coronary 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[place] heart, heart, angina angina presence presence unspecified [...] Mononitrate Mononitrate Millender in t he morning Deboraa Lyrica Yes Anneliese 1 capsule Millender Encounters Start End Encounter Admission Attending Care Care Encounter Date/Time Date/Time Type Type Clinicians Facility Department ID 2019-10-07 2019-10-07 [id number] 10:48:00 10:48:00 [facility] 2019-10-05 2019-10-05 [id number] 16:06:00 16:06:00 [facility] 2019-07-12 2019-07-12 [id number] 16:24:00 16:24:00 [facility] 2019-07-06 2019-07-06 [facility] [id number] 14:00:00 14:00:00 [facility]
--- OUTSIDE RECORDS SUMMARY | 2020-03-17 04:23 | XMS REPORT ---
:1940 Author Organization [employer] Care Team Providers Name Role Phone Lester Anneliese Provider Role Unavailable Allergies No Known Allergies Problems Problem Type Condition Code Onset Dates Condition Statu s Problem Routine eye exam Z01.00 Active Problem On home oxygen therapy Z99.81 Activ e Problem Coronary artery disease involving I25.10 Active [place] coronary artery of [place] heart, angina presence unspecified Problem S/P coronary [...]
--- OUTSIDE RECORDS SUMMARY | 2020-03-17 04:23 | XMS REPORT ---
:1940 Author Organization [employer] Care Team Providers Name Role Phone Lester Anneliese Provider Role Unavailable Allergies No Known Allergies Problems Problem Type Condition Code Onset Dates Condition Statu s Problem Routine eye exam Z01.00 Active Problem On home oxygen therapy Z99.81 Activ e Problem Coronary artery disease involving I25.10 Active [place] coronary artery of [place] heart, angina presence unspecified Problem S/P coronary [...]
--- OUTSIDE RECORDS SUMMARY | 2020-03-17 04:23 | XMS REPORT ---
[...] Problem Coronary artery disease involving I25.10 Active [place] coronary artery of [place] heart, angina presence unspecified Problem History of [...] Assessment Coronary artery disease involving I25.10 Active [place] coronary artery of [place] heart, angina presence unspecified Problem Need for dental care Z91.89 Active Medications Medication Code Code Instructions Start End Status Dosage System Date Date Potassium NDC 65861295167 10 MEQ Orally Active 1 ca psule Chloride Twice a day with food Tylenol # 3 NDC 0 300/30mg PO BID [place] [address] 1000 UNIT Active 2 caps ule Orally Once a day Humalog ND 40466680824 100 UNIT/ML Active as direc diamante Subcutaneous 10 units with each meal (3x daily) Aspir-Low ND 87314833018 81 MG Orally Active 1 tab let Once a day Namzaric ND 09006474056 28 mg/10 mg Active 1 Orally daily Zyprexa [facility] 25016318152 2.5 MG Orally Active 1 tabl et Once a day Vitamin B-1 [facility] 44331001266 100 MG Orally Active 1 tablet Once a day Multivitamin [facility] 14624-68097 - Orally Active as dir ected Lantus [facility] 08671589400 100 UNIT/ML Active as direc diam[place] Subcutaneous 40 units once daily Lasix [facility] 70022994235 40 MG Orally Active 1 table t Once a day Isosorbide [facility] 99842012178 60 MG Orally Active 1 ta blet in Mononitrate Once a day the morni ng Lyrica [facility] 59476296689 150 MG Orally Active 1 caps ule Once a day Results No Known Results Summary Purpose [employer] Submission
[2020-03-17 04:42] LABS: Absolute Lymphocytes (CBC) 1.9 K/uL (0.7-4.9); Basophils % 1.3 % (0-1.3); Hematocrit 34.2 % (39.6-49.0); Lymphocytes % 27.4 % (15.3-44.8); MPV 8.2 fL (7.6-11.3); RBC Red Blood Cell Count 3.73 M/uL (4.33-5.43)
[2020-03-17 05:03] LABS: Albumin 3.2 g/dL (3.4-5.0); Bilirubin Direct 0.3 mg/dL (0-0.2); Bilirubin Total 0.8 mg/dL (0.2-1.0); Magnesium 1.6 mg/dL (1.8-2.4); Potassium 3.7 mmol/L (3.5-5.1); Protein, Total 6.6 g/dL (6.4-8.2); Troponin (Emerg Dept Use Only) 0.05 ng/mL (0.0-0.045)
--- NOTE | 2020-03-17 05:26 | ER ---
Nurse's Notes [facility] Name: Demetrius Sarmiento Age: 79 yrs Sex: Male : 1940 Arrival Date: 03/17/2020 Time: 04:21 Bed 6 Private MD: Diagnosis: Chest pain Presentation: 03/17 04:18 Chief complaint: Patient states: that he is having chest pain with shortness of breath. fc Does not radiate. Just pressure to center of chest. Denies any nausea or vomiting. Pt does states that he took one of his own Nitro s/l prior to arrival of EMS. Coronavirus screen: Proceed with normal triage. Ebola Screen: Patient negative for fever greater than or equal to 101.5 degrees Fahrenheit, and additional compatible Ebola Virus Disease symptoms Patient denies exposure to infectious person. Patient denies travel to an Ebola-affected area in the 21 days before illness onset. Initial Sepsis Screen: Does the patient meet any 2 criteria? No. Patient's initial sepsis screen is negative. Does the patient have a suspected source of infection? No. Patient's initial sepsis screen is negative. Risk Assessment: Do you want to hurt yourself or someone else? Patient reports no desire to harm self or others. Onset of symptoms was March 17, 2020 at 03:00. Care prior to arrival: Medication(s) given: ASA, 81 mg, x 4, Nitroglycerin, 0.4 mg SL x 1, IV initiated. 20 GA, in the right antecubital area. Transition of care: patient was not received from another setting of care. 04:18 Method Of Arrival: EMS: [facility] 04:18 Acuity: LANCE 3 fc Historical: - Allergies: 04:40 No Known Allergies; fc - Home Meds: 04:40 magnesium oxide 400 mg Oral tab nightly [Active]; atorvastatin 40 mg oral tab 1 tab fc nightly [Active]; Vitamin B-12 1,000 mcg Oral tab daily [Active]; Lasix 20 mg Oral tab 1 tab once daily [Active]; metoprolol tartrate 25 mg Oral tab 1 tab 2 times per day [Active]; ranolazine oral 500 mg oral 1 tab 2 times per day [Active]; potassium chloride 10 mEq Oral cpER 1 cap once daily [Active]; donepezil 5 mg oral tab 1 tab nightly [Active]; isosorbide mononitrate 30 mg Oral Tb24 1 tab nightly [Active]; aspirin 81 mg Oral TbEC 1 tab once daily [Active]; multivitamin oral tab daily [Active]; glipizide 5 mg Oral tab 0.5 tab 2 times per day [Active]; - PMHx: 04:40 CHF; chronic kidney disease; Diabetes - IDDM; Hypertension; High Cholesterol; CAD; fc Myocardial infarction; Cardiac arrest; Chronic pain; - PSHx: 04:40 Heart stents; Tonsillectomy; back stimulator; fc - Immunization history:: Last tetanus immunization: up to date Flu vaccine is up to date. - Social history:: Smoking status: Patient denies any tobacco usage or history of. Patient/guardian denies using alcohol, street drugs. Screenin:18 Abuse screen: Denies threats or abuse. Nutritional screening: No deficits noted. fc Tuberculosis screening: No symptoms or risk factors identified. Fall Risk None identified. Assessment: 04:34 General: Appears comfortable, Behavior is calm, cooperative. Pain: Complains of pain in rv chest Pain does not radiate. Pain currently is 1 out of 10 on a pain scale. Pain began suddenly. Neuro: Level of Consciousness is awake, alert, obeys commands, Oriented to person, place, time, situation. Cardiovascular: Rhythm is sinus rhythm. Respiratory: Airway is patent Respiratory effort is even, unlabored. 07:00 Reassessment: RECD REPORT FROM ADAN STONER. 79YO WM P/W CHEST PAIN. PT TROPONIN MILDLY bp POSITIVE, ADMIT IN PROCESS. Vital Signs: 04:18 BP 125 / 61; Pulse 69; Resp 18; Temp 97.6(O); Pulse Ox 99% on R/A; Weight 74.84 kg (R); Height 5 ft. 8 in. (172.72 cm) (R); Pain /; 05:00 BP 95 / 68; Pulse 61; Resp 16; Pulse Ox 98% on R/A; jd3 05:30 BP 111 / 53; Pulse 59; Resp 14; Pulse Ox 99% on R/A; jd3 07:00 BP 113 / 44; Pulse 65; Resp 18; Pulse Ox 100% ; bp 07:58 BP 123 / 65; Pulse 52; Resp 12; Pulse Ox 98% ; bp 04:18 Body Mass Index 25.09 (74.84 kg, 172.72 cm) ED Course: 04:18 No provider procedures requiring assistance completed. fc 04:18 Arm band placed on Patient placed in an exam room, on a stretcher. fc 04:18 Patient has correct armband on for positive identification. Placed in gown. Bed in low fc position. Call light in reach. Side rails up X2. radiation monitor on. Pulse ox on. NIBP on. 04:21 Patient arrived in ED. ds1 04:21 Ramesh Crespo MD is Attending Physician. pkl 04:30 Milton Jacinto, RN is Primary Nurse. rv 04:32 Maintain EMS IV. Dressing intact. Good blood return noted. Site clean \T\ dry. Gauge \T\ tao 3 site: 20 G in the right AC. IV is patent, is intact, with fluids infusing freely, with good blood return. 04:33 Triage completed. fc 04:33 Initial lab(s) drawn, by me, sent to lab. EKG done, by mortuary technician. reviewed by Ramesh Crespo MD.jd3 04:50 XRAY Chest (1 view) In Process Unspecified. EDMS 05:22 Sukhwinder Mcclendon is Hospitalizing Provider. pkl 07:21 Primary Nurse role handed off by Milton Jacinto RN bp 07:21 Stewart Hoffmann, HERBIE is Primary Nurse. bp 07:58 Patient admitted, IV remains in place. Oxygen administration via nasal cannula \T\ 2L/min.bp Administered Medications: 05:34 Drug: morphine 2 mg {Note: rass 0.} Route: IVP; Site: right antecubital; rv 06:38 Follow up: Response: No adverse reaction; Pain is decreased; RASS: Alert and Calm (0) rv 05:34 Drug: Zofran (Ondansetron) 4 mg Route: IVP; Site: right antecubital; rv 06:39 Follow up: Response: No adverse reaction rv 05:37 Drug: Magnesium Sulfate 1 grams Route: IVPB; Infused Over: 1 hrs; Site: right rv antecubital; 06:38 Follow up: IV Status: Completed infusion; IV Intake: 100ml rv Intake: 06:38 IV: 100ml; Total: 100ml. rv Outcome: 05:25 Decision to Hospitalize by Provider. pkl 08:12 Admitted to [facility] accompanied by benji, via stretcher, with oxygen, with chart, Report aa5 called to HERBIE Guaman 08:12 Condition: stable 08:12 Instructed on the need for admit. 08:12 Patient left the ED. aa5 Signatures: Dispatcher [employer] EDMS Ramesh Crespo MD MD pkl Chretien, Felicia, RN RN Kayce Aguayo ds1 Kezia Villarreal RN RN aa5 Gene Menjivar RN RN jd3 Peltier, Brian RN RN bp Milton Jacinto RN RN rv
--- NOTE | 2020-03-17 05:26 | EDPHYS ---
Physician Documentation [facility] Name: Demetrius Sarmiento Age: 79 yrs Sex: Male : 1940 Arrival Date: 03/17/2020 Time: 04:21 Bed 6 Private MD: ED Physician Ramesh Crespo HPI: 03/17 04:49 This 79 yrs old Male presents to ER via EMS with complaints of Chest Pain. pkl 04:49 The patient or guardian reports chest pain that is located primarily in the substernal pkl area. Onset: just prior to arrival, 2 hour(s) ago. The pain radiates to both arms. Associated signs and symptoms: Pertinent positives: shortness of breath. The chest pain is described as a pressure. Historical: - Allergies: 04:40 No Known Allergies; fc - Home Meds: 04:40 magnesium oxide 400 mg Oral tab nightly [Active]; atorvastatin 40 mg oral tab 1 tab fc nightly [Active]; Vitamin B-12 1,000 mcg Oral tab daily [Active]; Lasix 20 mg Oral tab 1 tab once daily [Active]; metoprolol tartrate 25 mg Oral tab 1 tab 2 times per day [Active]; ranolazine oral 500 mg oral 1 tab 2 times per day [Active]; potassium chloride 10 mEq Oral cpER 1 cap once daily [Active]; donepezil 5 mg oral tab 1 tab nightly [Active]; isosorbide mononitrate 30 mg Oral Tb24 1 tab nightly [Active]; aspirin 81 mg Oral TbEC 1 tab once daily [Active]; multivitamin oral tab daily [Active]; glipizide 5 mg Oral tab 0.5 tab 2 times per day [Active]; - PMHx: 04:40 CHF; chronic kidney disease; Diabetes - IDDM; Hypertension; High Cholesterol; CAD; fc Myocardial infarction; Cardiac arrest; Chronic pain; - PSHx: 04:40 Heart stents; Tonsillectomy; back stimulator; fc - Immunization history:: Last tetanus immunization: up to date Flu vaccine is up to date. - Social history:: Smoking status: Patient denies any tobacco usage or history of. Patient/guardian denies using alcohol, street drugs. ROS: 04:49 Eyes: Negative for injury, pain, redness, and discharge, ENT: Negative for injury, pkl pain, and discharge, Neck: Negative for injury, pain, and swelling. 04:49 Cardiovascular: Positive for chest pain. 04:49 Respiratory: Positive for shortness of breath. 04:49 Abdomen/GI: Negative for abdominal pain, nausea, vomiting, and diarrhea. 04:49 Back: Negative for acute changes. 04:49 : Negative for urinary symptoms. 04:49 MS/extremity: Negative for acute changes. 04:49 Skin: Negative for diaphoresis. 04:49 Neuro: Negative for altered mental status, loss of consciousness. Exam: 04:49 Head/Face: Normocephalic, atraumatic. Eyes: Pupils equal round and reactive to light, pkl extra-ocular motions intact. Lids and lashes normal. Conjunctiva and sclera are non-icteric and not injected. Cornea within normal limits. Periorbital areas with no swelling, redness, or edema. ENT: Nares patent. No nasal discharge, no septal abnormalities noted. Tympanic membranes are normal and external auditory canals are clear. Oropharynx with no redness, swelling, or masses, exudates, or evidence of obstruction, uvula midline. Mucous membranes moist. Neck: Trachea midline, no thyromegaly or masses palpated, and no cervical lymphadenopathy. Supple, full range of motion without nuchal rigidity, or vertebral point tenderness. No Meningismus. Chest/axilla: Normal chest wall appearance and motion. Nontender with no deformity. No lesions are appreciated. Cardiovascular: Regular rate and rhythm with a normal S1 and S2. No gallops, murmurs, or rubs. Normal PMI, no JVD. No pulse deficits. Respiratory: Lungs have equal breath sounds bilaterally, clear to auscultation and percussion. No rales, rhonchi or wheezes noted. No increased work of breathing, no retractions or nasal flaring. Abdomen/GI: Soft, non-tender, with normal bowel sounds. No distension or tympany. No guarding or rebound. No evidence of tenderness throughout. Back: No spinal tenderness. No costovertebral tenderness. Full range of motion. Skin: Warm, dry with normal turgor. Normal color with no rashes, no lesions, and no evidence of cellulitis. MS/ Extremity: Pulses equal, no cyanosis. Neurovascular intact. Full, normal range of motion. Neuro: Awake and alert, GCS 15, oriented to person, place, time, and situation. Cranial nerves II-XII grossly intact. Motor strength 5/5 in all extremities. Sensory grossly intact. Cerebellar exam normal. Normal gait. Vital Signs: 04:18 BP 125 / 61; Pulse 69; Resp 18; Temp 97.6(O); Pulse Ox 99% on R/A; Weight 74.84 kg (R); fc Height 5 ft. 8 in. (172.72 cm) (R); Pain 1/10; 05:00 BP 95 / 68; Pulse 61; Resp 16; Pulse Ox 98% on R/A; jd3 05:30 BP 111 / 53; Pulse 59; Resp 14; Pulse Ox 99% on R/A; jd3 07:00 BP 113 / 44; Pulse 65; Resp 18; Pulse Ox 100% ; bp 07:58 BP 123 / 65; Pulse 52; Resp 12; Pulse Ox 98% ; bp 04:18 Body Mass Index 25.09 (74.84 kg, 172.72 cm) fc MDM: 04:21 Patient medically screened. pkl 05:16 Data reviewed: vital signs, nurses notes, lab test result(s), EKG, radiologic studies, pkl plain films. ED course: EKG ( Left axis deviation, moderate LVH, ST and T wave abnormality, consider inferolateral ischemia ) . 05:21 ED course: Troponin ( 0.05 ). pkl 05:21 ED course: Talked to Dr. Mcclendon, for observation. pkl 03/17 04:32 Order name: Basic Metabolic Panel; Complete Time: 05:10 jd3 03/17 04:32 Order name: CBC with Diff; Complete Time: 04:49 jd3 03/17 04:32 Order name: LFT's; Complete Time: 05:10 jd3 03/17 04:32 Order name: Magnesium; Complete Time: 05:10 jd3 03/17 04:32 Order name: NT PRO-BNP; Complete Time: 05:10 jd3 03/17 04:32 Order name: PT-INR; Complete Time: 04:49 jd3 03/17 04:32 Order name: Troponin (emerg Dept Use Only); Complete Time: 05:10 jd3 03/17 04:32 Order name: XRAY Chest (1 view) jd3 03/17 04:32 Order name: EKG; Complete Time: 04:34 jd3 03/17 04:32 Order name: Cardiac monitoring; Complete Time: 04:32 jd3 03/17 04:42 Order name: D-Dimer; Complete Time: 04:55 pkl 03/17 04:32 Order name: EKG - Nurse/Tech; Complete Time: 04:32 jd3 03/17 04:32 Order name: IV Saline Lock; Complete Time: 04:32 jd3 03/17 04:32 Order name: Labs collected and sent; Complete Time: 04:32 jd3 03/17 04:32 Order name: O2 Per Protocol; Complete Time: 04:32 jd3 03/17 04:32 Order name: O2 Sat Monitoring; Complete Time: 04:32 jd3 Administered Medications: 05:34 Drug: morphine 2 mg {Note: rass 0.} Route: IVP; Site: right antecubital; rv 06:38 Follow up: Response: No adverse reaction; Pain is decreased; RASS: Alert and Calm (0) rv 05:34 Drug: Zofran (Ondansetron) 4 mg Route: IVP; Site: right antecubital; rv 06:39 Follow up: Response: No adverse reaction rv 05:37 Drug: Magnesium Sulfate 1 grams Route: IVPB; Infused Over: 1 hrs; Site: right rv antecubital; 06:38 Follow up: IV Status: Completed infusion; IV Intake: 100ml rv Disposition: 03/17/20 05:25 Hospitalization ordered by Sukhwinder Mcclendon for Observation. Preliminary diagnosis is Chest pain. - Bed requested for Telemetry/MedSurg (observation). - Status is Observation. aa5 - Condition is Stable. - Problem is new. - Symptoms are unchanged. Signatures: Dispatcher [employer] EDMS Ramesh Crespo MD MD pkl Chretien, Felicia, RN RN fc Calderon, Audri, RN RN aa5 Kerry Brown RN RN cg Gene Menjivar RN RN jMilton Schneider RN RN rv Corrections: (The following items were deleted from the chart) 06:38 05:25 Hospitalization Ordered by Sukhwinder Mcclendon for Observation. Preliminary diagnosis cg is Chest pain. Bed requested for Telemetry/MedSurg (observation). Status is Observation. Condition is Stable. Problem is new. Symptoms are unchanged. pkl 08:12 06:38 03/17/2020 05:25 Hospitalization Ordered by Sukhwinder Mcclendon for Observation. aa5 Preliminary diagnosis is Chest pain. Bed requested for Telemetry/MedSurg (observation). Status is Observation. Condition is Stable. Problem is new. Symptoms are unchanged. cg
[2020-03-17] MEDS ORDERED: ONDANSETRON 4 MG/2 ML VIAL ONE (05:33)
[2020-03-17] MEDS ORDERED: MORPHINE 2 MG/ML SYR ONE (05:33)
[2020-03-17] MEDS ORDERED: MAGNESIUM SULFATE 1 gm IVPB 1 GM/100 ML BAG IV ONE (05:42)
--- NOTE | 2020-03-17 06:26 | P.HP ---
Certification for Inpatient Patient admitted to: Inpatient With expected LOS: <2 Midnights Practitioner: I am a practitioner with admitting privileges, knowledge of patient current condition, hospital course, and medical plan of care. Services: Services provided to patient in accordance with Admission requirements found in Title 42 Section 412.3 of the Code of Federal Regulations Patient History Date of Service: 03/17/20 Reason for admission: Chest pain History of Present Illness: 79-year-old man with a history of coronary artery disease, status post stent, presented emergency department with a complaint of chest pain of onset last night. Patient report chest pain which woke him up from sleep, chest pain radiating to involve the left, relieved by nitroglycerine and aspirin. His initial troponin is mildly elevated. EKG demonstrated ST T wave changes in the lateral leads. The patient was here 1 week ago with similar complain. He was evaluated by Dr. Davidson recommended medical management given his risk for worsening kidney function with cardiac catheterization. Per chart review Dr. Davidson was considering to do cardiac catheterization if he has recurrent chest pain. Patient is admitted for further management. Allergies No Known Allergies Allergy (Verified 03/10/20 01:08) Home Medications: Aspirin 1 tab PO DAILY 03/10/20 Atorvastatin Calcium 1 tab PO BEDTIME 03/10/20 Cholecalciferol (Vitamin D3) [Vitamin D3] 1 cap PO DAILY 03/10/20 Insulin Glargine Human [Lantus*] 30 unit SQ DAILY 03/10/20 Insulin Lispro [Humalog] 4 units SQ TID 03/10/20 Magnesium Oxide 1 tab PO DAILY 03/10/20 Memantine HCl/Donepezil HCl [Namzaric 28 mg-10 mg Capsule] 1 cap PO DAILY 03/10/20 Metoprolol Tartrate 12.5 mg PO BID 03/10/20 Multivitamin [Multivitamins] 1 cap PO DAILY 03/10/20 Ranolazine [Ranolazine ER] 1 tab PO Q12H 03/10/20 Thiamine HCl [Vitamin B-1*] 1 tab PO DAILY 03/10/20 Furosemide [Lasix] 20 mg PO DAILY #30 tab 03/11/20 Potassium Chloride [K-Dur] 10 meq PO DAILY #30 tab.er.prt 03/11/20 - Past Medical/Surgical History Diabetic: Yes -: CHF -: HTN -: DM IDDM -: Heart Stents -: Solitary kidney -: stents - Family History Father -: Heart disease - Social History Alcohol use: No CD- Drugs: No Caffeine use: Yes Review of Systems Other: Except as documented, all other systems reviewed and negative. Physical Examination - Physical Exam General: Alert, In no apparent distress, Oriented x3 HEENT: Normocephalic, Mucous membr. moist/pink Neck: Supple, JVD not distended Respiratory: Clear to auscultation bilaterally, Normal air movement Cardiovascular: No edema, Regular rate/rhythm, Normal S1 S2 Gastrointestinal: Normal bowel sounds, Soft and benign, Non-distended, No tenderness Musculoskeletal: No swelling, No erythema Integumentary: No rashes, No erythema Neurological: Normal strength at 5/5 x4 extr, Cranial nerves 3-12 intact - Studies Laboratory Data (last 24 hrs) 03/17/20 04:29: PT 11.8, INR 1.00 03/17/20 04:29: WBC 7.0 D, Hgb 11.8 L, Hct 34.2 L, Plt Count 178 03/17/20 04:29: Sodium 140, Potassium 3.7, BUN 21 H, Creatinine 1.41 H, Glucose 199 H, Magnesium 1.6 L D, Total Bilirubin 0.8, AST 14 L, ALT 20, Alkaline Phosphatase 51 Assessment and Plan - Problems (Diagnosis) (1) Angina at rest Current Visit: Yes Status: Acute (2) Coronary artery disease Current Visit: Yes Status: Acute (3) Chronic kidney disease, stage 3 Current Visit: Yes Status: Acute (4) Diabetes mellitus type 2 in nonobese Current Visit: Yes Status: Acute - Plan Admit to the medical floor. Continue to trend troponin. Telemetry Cardiology consult Aspirin, Plavix, NTG prn. Ranexa, metoprolol. IV morphine p.r.n. Insulin sliding scale for glucose management - Advance Directives Does patient have a Living Will: Yes Does patient have a Durable POA for Healthcare: Yes - Code Status/Comfort Care Code Status Assessed: Yes Code Status: Full Code
[2020-03-17] MEDS ORDERED: METOPROLOL TAR 50 MG TAB PO SCH (10:13)
[2020-03-17] MEDS ORDERED: CLOPIDOGREL 75 MG TABLET PO SCH (10:13)
[2020-03-17] MEDS ORDERED: NITROGLYCERIN 0.4 MG/TAB SL PRN (10:13)
[2020-03-17] MEDS ORDERED: ASPIRIN EC 81 MG TAB PO SCH (10:13)
[2020-03-17] MEDS ORDERED: MORPHINE 4 MG/ML SYR IV PRN (10:13)
[2020-03-17] MEDS ORDERED: ENOXAPARIN 40 MG/0.4 ML SQ SCH (10:13)
[2020-03-17] MEDS: INSULIN -REGULAR HUMAN 50 UNIT/0.5 ML ML SQ SCH ×2 (10:13→11:30)
--- NOTE | 2020-03-17 10:14 | RAD REPORT ---
EXAM DESCRIPTION: [place] Single View03/17/2020 4:51 am CLINICAL HISTORY: Chest pain COMPARISON: February 2020 FINDINGS: The lungs appear clear of acute infiltrate. The heart is mildly enlarged IMPRESSION: No acute abnormalities displayed
[2020-03-17 10:20] VITALS: BMI 45.6
[2020-03-17] MEDS ORDERED: GLUCAGON 1 MG/VIAL IM PRN (10:52)
[2020-03-17] MEDS ORDERED: D50W 25 GM/50 ML SYRINGE/VIAL IV PRN (10:52)
[2020-03-17 12:44] VITALS: O2SAT 97
[2020-03-17 13:05] VITALS: BP 122/60; TEMP 97.1
--- NOTE | 2020-03-17 15:24 | P.DS ---
Admission Date: 03/17/20 (Hospitalist) Discharge Date: 03/17/20 Reason for Admission: Chest pain Consultations: Dr. Baldwin, cardiology Brief History of Present Illness: Chest pain Hospital Course: Patient is 79 years of age admitted with chest pain he has had numerous hospital admissions discuss with Dr. Costello his manager adult, patient has inoperable disease recent cardiac catheterization done agree with observation optimize his therapy according to her cardiology increase the had an ex to 1000 mg b.i.d./hr patient decided to leave A to follow up with his own manager adult troponins negative patient's vitals are stable Vital Signs/Physical Exam: Temp Pulse Resp BP Pulse Ox 97.1 F 52 18 122/60 97 03/17/20 12:00 03/17/20 12:00 03/17/20 12:00 03/17/20 12:00 03/17/20 12:00 Laboratory Data at Discharge: WBC 7.0 K/uL (4.3-10.9) D 03/17/20 04:29 Hgb 11.8 g/dL (13.6-17.9) L 03/17/20 04:29 Hct 34.2 % (39.6-49.0) L 03/17/20 04:29 Plt Count 178 K/uL (152-406) 03/17/20 04:29 PT 11.8 SECONDS (9.5-12.5) 03/17/20 04:29 INR 1.00 03/17/20 04:29 Sodium 140 mmol/L (136-145) 03/17/20 04:29 Potassium 3.7 mmol/L (3.5-5.1) 03/17/20 04:29 BUN 21 mg/dL (7-18) H 03/17/20 04:29 Creatinine 1.41 mg/dL (0.55-1.3) H 03/17/20 04:29 Glucose 199 mg/dL (74-106) H 03/17/20 04:29 Magnesium 1.6 mg/dL (1.8-2.4) L D 03/17/20 04:29 Total Bilirubin 0.8 mg/dL (0.2-1.0) 03/17/20 04:29 AST 14 U/L (15-37) L 03/17/20 04:29 ALT 20 U/L (12-78) 03/17/20 04:29 Alkaline Phosphatase 51 U/L (45-117) 03/17/20 04:29 Troponin I Cancelled 03/17/20 22:13 Home Medications: Aspirin 1 tab PO DAILY 03/10/20 Atorvastatin Calcium 1 tab PO BEDTIME 03/10/20 Insulin Glargine Human [Lantus*] 30 unit SQ DAILY 03/10/20 Magnesium Oxide 1 tab PO DAILY AT SUPPER 03/10/20 Metoprolol Tartrate 25 mg PO BID 03/10/20 Multivitamin [Multivitamins] 1 cap PO DAILY 03/10/20 Ranolazine [Ranolazine ER] 1 tab PO Q12H 03/10/20 Potassium Chloride [K-Dur] 10 meq PO DAILY #30 tab.er.prt 03/11/20 Donepezil HCl [Aricept] 5 mg PO DAILY AT SUPPER 03/17/20 Furosemide [Lasix] 20 mg PO DAILY AT SUPPER 03/17/20 Isosorbide Mononitrate [Isosorbide Mononitrate ER] 30 mg PO DAILY AT SUPPER 03/17/20 Mecobalamin [B12 Active] 1,000 mcg PO DAILY 03/17/20 glipiZIDE [Glipizide] 2.5 tab PO BID 6AM 6PM 03/17/20
[2020-03-17] MEDS ORDERED: FUROSEMIDE 20 MG TABLET PO SCH (17:00)
[2020-03-17] MEDS ORDERED: ISOSORBIDE MONO SR 30 MG TAB PO SCH (17:00)
[2020-03-17] MEDS ORDERED: DONEPEZIL HCL 5 MG TAB PO SCH (17:00)
[2020-03-17] MEDS ORDERED: METOPROLOL TAR 25 MG TAB PO SCH (18:00)
[2020-03-17] MEDS ORDERED: glipiZIDE 5 MG TAB PO SCH (18:00)
[2020-03-17] MEDS ORDERED: ATORVASTATIN 40 MG TAB PO SCH (21:00)
[2020-03-18] MEDS ORDERED: POTASSIUM CHLORIDE 10 MEQ PO SCH (09:00)
[2020-03-18] MEDS ORDERED: ASPIRIN 81 MG CHEWABLE TABLET PO SCH (09:00)
[2020-03-18] MEDS ORDERED: INSULIN GLARGINE 100 UNITS/ML SQ SCH (09:00)
--- NOTE | 2020-03-18 13:11 | EKG ---
Test Date: 2020-03-17 Test Time: 04:31:21 [employer]: BRI MEASUREMENT RESULTS: Intervals: Rate: 63 TN: 184 QRSD: 92 QT: 442 QTc: 452 Sullivan: P: 42 TN: 184 QRS: -63 T: 189 INTERPRETIVE STATEMENTS: Normal sinus rhythm Left axis deviation Moderate voltage criteria for LVH, may be normal variant Cannot rule out Septal infarct, age undetermined ST & T wave abnormality, consider inferolateral ischemia Electronically Signed On 03-18-20 13:10:35 CDT by Gibson Davidson
== END 2020-03-17 15:35 | disposition left against medical advice (07) | DRG 313 ==
LOC: ER 04:20 → ERHOLD 06:41 → 2ND 08:05
PROVIDERS: ADMIT Internal Medicine; ATTEND Internal Medicine Sleep Medicine
DX: R07.9 Chest pain, unspecified (principal); I25.10 Atherosclerotic heart disease of native coronary artery without angina pectoris; E11.22 Type 2 diabetes mellitus with diabetic chronic kidney disease; I25.119 Atherosclerotic heart disease of native coronary artery with unspecified angina pectoris; N18.3 Chronic kidney disease, stage 3 (moderate); I12.9 Hypertensive chronic kidney disease with stage 1 through stage 4 chronic kidney disease, or unspecified chronic kidney disease; E78.5 Hyperlipidemia, unspecified; I25.2 Old myocardial infarction; Z79.82 Long term (current) use of aspirin; Z79.4 Long term (current) use of insulin; Z95.5 Presence of coronary angioplasty implant and graft; Z79.899 Other long term (current) drug therapy
CPT/HCPCS: 36415; 71045; 80048; 80076; 82947; 83735; 83880; 84484; 85025; 85379; 85610; 93005; 94760; 96365; 96375; 99285; J1650; J2270; J2405; J3475

== ENCOUNTER 2020-07-13 07:35 | Emergency (ER) | payer OTHER ==
--- OUTSIDE RECORDS SUMMARY | 2020-07-13 07:39 | XMS REPORT | Clinical Summary ---
:1940 Author Organization [facility] Address [address] [place] [address] Care Team Providers Name Role Phone MD Trang Primary Care Provider Allergies No Known Allergies Medications Medication Sig Dispensed Refills Start End Status Date Date multivitamin Take 1 tablet by 0 Active (THERAGRAN) tablet mouth nightly. traMADol (ULTRAM) Take 50 mg by 0 Active 50 mg tablet mouth. OLANZapine TAKE 1 TABLET BY 90 tablet 1 Ac tive (ZYPREXA) 2.5 MG MOUTH ONCE DAILY 9 tablet AT NIGHT NAMZARIC 28-10 mg TAKE 1 CAPSULE 90 each 3 Active capsule,sprinkle,E BY MOUTH ONCE 9 R 24hr DAILY aspirin (ECOTRIN) Take 81 mg by 0 Active 81 MG enteric mouth daily. coated tablet atorvastatin Take 40 mg by 0 Act stefany (LIPITOR) 40 MG mouth nightly. tablet insulin GLARGINE Inject 30 Units 0 Active (LANTUS) 100 under the skin unit/mL injection nightly. (vial) isosorbide Take 60 mg by 0 Activ e mononitrate mouth daily. (IMDUR) 60 MG 24 hr tablet potassium chloride Take 10 mEq by 0 Active (K-DUR) 10 MEQ CR mouth daily. tablet multivitamin Take 1 tablet by 30 tablet 1 Active (THERAGRAN) tablet mouth nightly. 9 glimepiride Take 1 mg by 0 Disco ntinued (AMARYL) 1 MG mouth nightly. 019 ( Error) tablet acetaminophen-code Take 1 tablet by 90 tablet 0 /2 ine (TYLENOL WITH mouth every 8 9 020 CODEINE #3) 300-30 (eight) hours as mg per tablet needed for moderate pain. pregabalin Take 1 capsule 270 capsule 1 Ex pired (LYRICA) 150 MG (150 mg total) 9 020 capsule by mouth 3 (three) times a day. amoxicillin-pot Take 1 tablet 8 tablet 0 clavulanate (500 mg total) 9 019 (AUGMENTIN) by mouth 2 (two) 500-125 mg per times a day for tablet 4 days. aspirin (ECOTRIN) Take 1 tablet 30 tablet 2 81 MG enteric (81 mg total) by 9 020 coated tablet mouth daily for 90 days. atorvastatin Take 1 tablet 30 tablet 3 Exp ired (LIPITOR) 40 MG (40 mg total) by 9 019 tablet mouth nightly for 30 days. docusate sodium Take 1 capsule 60 capsule 0 (COLACE) 100 MG (100 mg total) 9 019 capsule by mouth 2 (two) times a day for 30 days. insulin GLARGINE Inject 30 Units 9 mL 2 (LANTUS) 100 under the skin 9 019 unit/mL injection nightly for 30 (vial) days. insulin lispro Inject 4 Units 10 mL 12 (HumaLOG) 100 under the skin 3 9 019 unit/mL injection (three) times a day with meals for 30 days. ipratropium-albute Take 3 mL by 270 mL 0 rol (DUO-NEB) nebulization 9 019 0.5-2.5 mg/3 mL every 6 (six) nebulizer hours while awake for 30 days. isosorbide Take 1 tablet 30 tablet 3 Expir ed mononitrate (60 mg total) by 9 019 (IMDUR) 60 MG 24 mouth daily for hr tablet 30 days. Lactobacillus Take 1 tablet by 90 tablet 0 acidoph-L.bulgar mouth 3 (three) 9 019 (FLORANEX) 1 times a day for million cell 30 days. tablet lisinopril Take 1 tablet (5 30 tablet 3 Ex pired (PRINIVIL) 5 mg mg total) by 9 019 tablet mouth daily for 30 days. metoprolol Take 0.5 tablets 30 tablet 3 Ex pired tartrate (12.5 mg total) 9 019 (LOPRESSOR) 25 mg by mouth 2 (two) tablet times a day for 30 days. potassium chloride Take 2 capsules 120 capsule 0 29/12 Discontinued (MICRO-K) 10 MEQ (20 mEq total) 9 019 CR capsule by mouth 2 (two) times a day for 30 days. spironolactone Take 0.5 tablets 15 tablet 3 (ALDACTONE) 25 MG (12.5 mg total) 9 019 tablet by mouth daily for 30 days. furosemide (LASIX) Take 1 tablet 60 tablet 0 40 mg tablet (40 mg total) by 9 019 mouth 2 (two) times a day for 30 days. potassium chloride Take 2 capsules 60 capsule 1 10/16 (MICRO-K) 10 MEQ (20 mEq total) 9 019 CR capsule by mouth daily for 30 days. furosemide (LASIX) Take 40 mg by 0 Discontinued 40 mg tablet mouth daily. 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 01/12/2017 Failed back syndrome of lumbar spine 01/12/2017 Encounters Date Type Specialty Care Team Description 09/26/2019 Surgery Procedural Attar, Selective coron alicja Cardiology MD Jono angiography [93 454 (CPT)] 09/24/2019 - Hospital Cardiology Mars, Stable angina p ectoris (HCC) (Primary Dx); 09/28/2019 Encounter Jayson Aguilar Sr., Diabetic poly neuropathy associated with type 2 diabetes mellitus (HCC); 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); Essential hyper tension; Type 2 diabetes mellitus with hyperosmolarity without coma, with long-term current use of insulin (HCC); Unstable angina pectoris (HCC); Late onset Alzh eimer's disease with behavioral disturbance (HCC) 09/24/2019 Intake Access after 07/13/2019 Family History Medical History Relation Name Comments Heart disease Father Seizures Father Alzheimer's disease Mother Cancer Mother BREAST Relation Name Status Comments Father Mother Social History Tobacco Use Types Packs/Day Years Used Date Former Smoker Cigarettes 1 Quit: 1994 Smokeless Tobacco: Never Used Alcohol Use Drinks/Week oz/Week Comments No Sex Assigned at Date Recorded Not on file Job Start Date Occupation Industry Not on file Not on file Not on file Travel History Travel Start Travel End No recent travel history available. Last Filed Vital Signs Vital Sign Reading Time Taken Comments Blood Pressure 109/71 09/28/2019 7:41 AM LEAVE COORDINATOR Pulse 84 09/28/2019 8:07 AM LEAVE COORDINATOR Temperature 36.3 C (97.3 F) 09/28/2019 7:41 AM LEAVE COORDINATOR Respiratory Rate 18 09/28/2019 8:07 AM LEAVE COORDINATOR Oxygen Saturation 96% 09/28/2019 8:04 AM LEAVE COORDINATOR Inhaled Oxygen Concentration - - Weight 79.2 kg (174 lb 11.2 oz) 09/28/2019 4:53 AM LEAVE COORDINATOR Height 170.2 cm (5' 7") 09/27/2019 2:32 PM LEAVE COORDINATOR Body Mass Index 27.36 09/27/2019 2:32 PM LEAVE COORDINATOR Plan of Treatment Health Maintenance Due Date Last Done Comments DIABETIC RETINAL EYE EXAM 1940 DIABETIC FOOT EXAM 1950 SHINGLES VACCINES (#1) 1989 65+ PNEUMOCOCCAL VACCINE (2 of 2 - 2004 10/23/2016 PPSV23) INFLUENZA VACCINE 08/16/2020 09/09/2018, 09/09/2018, 09/09/2018, Additional history exists Implants Implanted Type Area Vendor Management Specialist Device Shelf Model / Identifier Expiration Serial / Date Lot Trial Lead, 50cm - Sna - [id number] Cardiac Pacing N/A: Spine 07/14/2021 [id number] / Implanted: Qty: 1 on 10/28/2018 by Joey Duke MD at [facility] Leads or Thoracic NA / Electrodes or [id number] Accessories Trial Lead, 50cm - Sna - [id number] Cardiac Pacing N/A: Spine 07/14/2021 [id number] / Implanted: Qty: 1 on 10/28/2018 by Joey Duke MD at [facility] Leads or Thoracic NA / Electrodes or [id number] Accessories Lead Kit, 70cm - [id number] IPM IMPLANT N/A: Spine 08/13/2021 [id number] / Implanted: 11/25/2018 at [facility] (Quantity not on file) DEVIC ES Thoracic 07/25/9999 / [id number] Senza [id number] Kit - [id number] IPM IMPLANT N/A: N/A 08/26/2020 [id number] / Implanted: 11/25/2018 at [facility] (Quantity not on file) DEVICES / [id number] Lead Penitas Kit (N300) - [id number] IPM IMPLANT N/A: N/A 07/06/2021 [id number] / Implanted: 11/25/2018 at [facility] (Quantity not on file) DEVICES / [id number] Patient Remote Kit - [id number] IPM IMPLANT N/A: N/A [id number] / Implanted: 11/25/2018 at [facility] (Quantity not on file) DEVICES / [id number] 14ga, 4in, Rx-2 Coude Epidural Needle For Epidural Access Needle N/A: N/A EPIMED INTL 07/11/2023 [id number] / Implanted: Qty: 2 on 11/25/2018 by Joey Duke MD at [facility] / [id number] Heart Stent X 2 Penile Implant-12/21/2014 Implanted: 12/21/2014 (Quantity not on file) Procedures Procedure Name Priority Date/Time Associated Comments Diagnosis POC GLUCOSE Routine 09/28/2019 7:42 Results for this AM LEAVE COORDINATOR procedure are i n the results section. HC COMPLETE BLD COUNT Routine 09/28/2019 4:45 Re sults for this W/AUTO DIFF AM LEAVE COORDINATOR procedure are i n the results section. ESTIMATED GFR Routine 09/28/2019 12:00 Results fo r this AM LEAVE COORDINATOR procedure are i n the results section. BASIC METABOLIC PANEL Routine 09/28/2019 12:00 Re sults for this AM LEAVE COORDINATOR procedure are i n the results section. POC GLUCOSE Routine 09/27/2019 9:34 Results for this PM LEAVE COORDINATOR procedure are i n the results section. NM MYOCARDIAL PERFUSION Routine 09/27/2019 5:37 Results for this IMAGING W TL-201 PM LEAVE COORDINATOR procedure a re in VIABILITY the results section. CV STRESS TEST NUCLEAR Routine 09/27/2019 5:37 R esults for this CARDIO PM LEAVE COORDINATOR procedure are i n the results section. POC GLUCOSE Routine 09/27/2019 5:03 Results for this PM LEAVE COORDINATOR procedure are i n the results section. POC GLUCOSE Routine 09/27/2019 12:00 Results for this PM LEAVE COORDINATOR procedure are i n the results section. POC GLUCOSE Routine 09/27/2019 8:55 Results for this AM LEAVE COORDINATOR procedure are i n the results section. POC GLUCOSE Routine 09/26/2019 8:20 Results for this PM LEAVE COORDINATOR procedure are i n the results section. ACTIVATED CLOTTING TIME Routine 09/26/2019 5:40 Results for this PM LEAVE COORDINATOR procedure are i n the results section. POC GLUCOSE Routine 09/26/2019 5:20 Results for this PM LEAVE COORDINATOR procedure are i n the results section. ACTIVATED CLOTTING TIME Routine 09/26/2019 5:16 Results for this PM LEAVE COORDINATOR procedure are i n the results section. CV UNLISTED MINING SUPPORT WORKER Routine 09/26/2019 4:54 Res ults for this PROCEDURE PM LEAVE COORDINATOR procedure are i n the results section. CV LEFT HEART CATH Routine 09/26/2019 4:54 Resul ts for this PM LEAVE COORDINATOR procedure are i n the results section. CV SELECTIVE CORONARY Routine 09/26/2019 4:54 Re sults for this ANGIOGRAPHY PM LEAVE COORDINATOR procedure are i n the results section. ACTIVATED CLOTTING TIME Routine 09/26/2019 4:51 Results for this PM LEAVE COORDINATOR procedure are i n the results section. ACTIVATED CLOTTING TIME Routine 09/26/2019 4:42 Results for this PM LEAVE COORDINATOR procedure are i n the results section. ACTIVATED CLOTTING TIME Routine 09/26/2019 4:30 Results for this PM LEAVE COORDINATOR procedure are i n the results section. POC GLUCOSE Routine 09/26/2019 1:33 Results for this PM LEAVE COORDINATOR procedure are i n the results section. TTE COMPLETE, WO STAT 09/26/2019 11:36 Results for this CONTRAST, W DOPPLER AM LEAVE COORDINATOR procedur e are in ([id number]) the results section. POC GLUCOSE Routine 09/26/2019 8:13 Results for this AM LEAVE COORDINATOR procedure are i n the results section. ANTI XA, UNFRACTIONATED Routine 09/26/2019 6:30 Results for this AM LEAVE COORDINATOR procedure are i n the results section. ESTIMATED GFR Routine 09/26/2019 4:00 Results fo r this AM LEAVE COORDINATOR procedure are i n the results section. MAGNESIUM LEVEL Routine 09/26/2019 4:00 Results for this AM LEAVE COORDINATOR procedure are i n the results section. BASIC METABOLIC PANEL Routine 09/26/2019 4:00 Re sults for this AM LEAVE COORDINATOR procedure are i n the results section. POC GLUCOSE Routine 09/25/2019 8:45 Results for this PM LEAVE COORDINATOR procedure are i n the results section. POC GLUCOSE Routine 09/25/2019 5:15 Results for this PM LEAVE COORDINATOR procedure are i n the results section. POTASSIUM LEVEL STAT 09/25/2019 2:39 Results for this PM LEAVE COORDINATOR procedure are i n the results section. MAGNESIUM LEVEL STAT 09/25/2019 2:39 Results for this PM LEAVE COORDINATOR procedure are i n the results section. TROPONIN STAT 09/25/2019 2:39 Results for this PM LEAVE COORDINATOR procedure are i n the results section. ANTI XA, UNFRACTIONATED STAT 09/25/2019 2:39 Results for this PM LEAVE COORDINATOR procedure are i n the results section. XR CHEST 1 VW PORTABLE STAT 09/25/2019 9:41 R esults for this AM LEAVE COORDINATOR procedure are i n the results section. POC GLUCOSE Routine 09/25/2019 9:03 Results for this AM LEAVE COORDINATOR procedure are i n the results section. CT HEAD WO CONTRAST STAT 09/25/2019 8:50 Resu lts for this AM LEAVE COORDINATOR procedure are i n the results section. ARTERIAL BLOOD GAS STAT 09/25/2019 8:30 Resul ts for this AM LEAVE COORDINATOR procedure are i n the results section. POC GLUCOSE Routine 09/25/2019 8:01 Results for this AM LEAVE COORDINATOR procedure are i n the results section. POC GLUCOSE Routine 09/25/2019 7:27 Results for this AM LEAVE COORDINATOR procedure are i n the results section. MAGNESIUM LEVEL Routine 09/25/2019 6:20 Results for this AM LEAVE COORDINATOR procedure are i n the results section. TROPONIN Routine 09/25/2019 6:20 Results for this AM LEAVE COORDINATOR procedure are i n the results section. PARTIAL THROMBOPLASTIN Routine 09/25/2019 6:20 R esults for this TIME (PTT) AM LEAVE COORDINATOR procedure are i n the results section. ANTI XA, UNFRACTIONATED Routine 09/25/2019 6:20 Results for this AM LEAVE COORDINATOR procedure are i n the results section. ESTIMATED GFR Routine 09/25/2019 6:20 Results fo r this AM LEAVE COORDINATOR procedure are i n the results section. THYROID STIMULATING Routine 09/25/2019 6:20 Resu lts for this HORMONE AM LEAVE COORDINATOR procedure are i n the results section. BASIC METABOLIC PANEL Routine 09/25/2019 6:20 Re sults for this AM LEAVE COORDINATOR procedure are i n the results section. HC COMPLETE BLD COUNT Routine 09/25/2019 6:20 Re sults for this W/AUTO DIFF AM LEAVE COORDINATOR procedure are i n the results section. POC GLUCOSE Routine 09/24/2019 9:30 Results for this PM LEAVE COORDINATOR procedure are i n the results section. CBC HEMOGRAM STAT 09/24/2019 9:10 Results for this PM LEAVE COORDINATOR procedure are i n the results section. T4, FREE Routine 09/24/2019 9:00 Results for this PM LEAVE COORDINATOR procedure are i n the results section. LIPID PANEL Routine 09/24/2019 9:00 Results for this PM LEAVE COORDINATOR procedure are i n the results section. TROPONIN Routine 09/24/2019 9:00 Results for this PM LEAVE COORDINATOR procedure are i n the results section. PROTHROMBIN TIME WITH STAT 09/24/2019 9:00 Re sults for this INR PM LEAVE COORDINATOR procedure are i n the results section. ANTI XA, UNFRACTIONATED STAT 09/24/2019 9:00 Results for this PM LEAVE COORDINATOR procedure are i n the results section. PARTIAL THROMBOPLASTIN STAT 09/24/2019 9:00 R esults for this TIME (PTT) PM LEAVE COORDINATOR procedure are i n the results section. after 07/13/2019 Results POC glucose (09/28/2019 7:42 AM LEAVE COORDINATOR)Only the most recent of15 resultswithin the time period is included. Pathologist Sig nature POC glucose 219 (H) 65 - 99 mg/dL [facility] Comment: [facility] Notified RN Meter ID: [id number] Collector Of Aquarium Specimens: Madonna Proctor Specimen Performing Organization Address City/State/Zipcode Phone Number [facility] DEPARTMENT OF PATHOLOGY AND [address], [place] [address] GENOMIC MEDICINE [address] [address] CBC with platelet and differential (09/28/2019 4:45 AM LEAVE COORDINATOR)Only the most recent of2 resultswithin the time period is included. WBC 7.11 4.50 - 11.00 [facility] k/uL [facility] RBC 4.17 (L) 4.40 - 6.00 [facility] m/uL [facility] HGB 12.5 (L) 14.0 - 18.0 [facility] g/dL [facility] HCT 37.1 (L) 41.0 - 51.0 % [facility] MCV 89.0 82.0 - 100.0 [facility] MCH 30.0 27.0 - 34.0 pg [facility] MCHC 33.7 31.0 - 37.0 [facility] gdL [facility] RDW - SD 44.6 37.0 - 55.0 fL [facility] MPV 11.3 8.8 - 13.2 [facility] Platelet count 167 150 - 400 k/uL [facility] Nucleated RBC 0.00 /100 WBC [facility] Neutrophils 67.8 39.0 - 69.0 % [facility] Lymphocytes 18.8 (L) 25.0 - 45.0 % [facility] Monocytes 9.6 0.0 - 10.0 % [facility] Eosinophils 3.1 0.0 - 5.0 % [facility] Basophils 0.4 0.0 - 1.0 % [facility] Immature granulocytes 0.3Comment: 0.0 - 1.0 % [facility] "Immature HOSPITAL granulocytes" (promyelocytes , myelocytes, metamyelocytes ) Specimen Blood Performing Organization Address City/State/Zipcode Phone Number [facility] DEPARTMENT OF PATHOLOGY AND [address] [place] [phone] GENOMIC MEDICINE [address] [address] Estimated GFR (09/28/2019 12:00 AM LEAVE COORDINATOR)Only the most recent of3 resultswithin the time period is included. Pathologist [facility] Estimated GFR 39 (A) mL/min/1.73 [facility] Comment: m2 HOSPITAL Catergory Units Interpretation G1 >=90 Normal or high G2 60-89 Mildly decreased G3a 45-59 Mildly to moderately decreas ed G3b 30-44 Moderately to severely decre ased G4 15-29 Severely decreased G5 <15 Kidney failure The eGFR was calculated using the Chronic Kidney Disea se Epidemiology Collaboration (CKD-EPI) equation. Interpretation is based on recommendations of the National Kidney Foundation-Kidney Disease Outcomes Brad lity Initiative (NKF-KDOQI) published in 2014. Specimen Plasma specimen Performing Organization Address City/[facility] Phone Number [facility] DEPARTMENT OF PATHOLOGY AND [address] [place] [address] [phone] [address] Basic metabolic panel (09/28/2019 12:00 AM LEAVE COORDINATOR)Only the most recent of3 results within the time period is included. [facility] Sig nature Sodium 136 135 - 148 mEq/L [facility] Potassium 4.4 3.5 - 5.0 mEq/L [facility] Chloride 99 98 - 112 mEq/L [facility] CO2 22 (L) 24 - 31 mEq/L [facility] Anion gap 15@ANIO 7 - 15 mEq/L [facility] BUN 21 8 - 23 mg/dL [facility] Creatinine 1.64 (H) 0.70 - 1.20 mg/dL [facility] Glucose 258 (H) 65 - 99 mg/dL [facility] Calcium 9.8 8.8 - 10.2 mg/dL [facility] Specimen Plasma specimen Performing Organization Address City/[facility]/Zipcode Phone Number [facility] DEPARTMENT OF PATHOLOGY AND [address] [place] [address] [address] Cv stress test (09/27/2019 5:37 PM LEAVE COORDINATOR) Resting HR 95 [facility] MUSE Resting BP 119 [facility] MUSE Peak MET Achieved 1.0 [facility] MUSE Protocol Name REGADENO [facility] MUSE Time in Exercise 00:01:00 [facility] MUSE Phase Max Systolic BP 119 [facility]USE Max Diastolic BP 73 [facility]USE Max Heart Rate 103 [facility]USE Max Predicted Heart 140 [facility] MUSE Rate Target HR Formula (220 - Age)*100% [facility] MUSE Test Indication CAD [facility] MUSE Stress Test -Waveform interpreted [facility] MUSE Impression in report associated with image study. No interpretation is provided as part of this Stress ECG report.-Electronically Signed By Ramos Sanders MD ([id number]), editorial project manager Darshana Tomlin ([id number]) on 09/27/2019 3:36:20 PM Target HR 140.00 bpm [facility] MUSE Specimen Narrative Performed At This result has an attachment that is no t available. Performing Organization Address City/State/Zipcode Phone Number [facility] MUSE [address] [place] [address] Nm myocardial perfusion imaging w tl-201 viability (09/27/2019 5:37 PM LEAVE COORDINATOR) Specimen Narrative Performed At This result has an attachment that is no t available. [facility] Nuclear Cardiology and Card iac [place] [address] [address] Myocardial Perfusion Imagin g Report Stress ECG tracings are available in MUSE, EP IC and CV Web All ECG interpretations are included in this report Pat.Name: DEMETRIUS SARMIENTO Pat.ID: [id number] .Date: 09/27/2019 Refer.MD: JAYSON AGUILAR MD Exam Time: 10:43:00 AM Study Type:Myocardial Perfusion Imaging Height: 67in Age: 6 1940,79Y Sex: MALE BP: 119/73 HR: 98 bpm Nuclear Tech:Lynn Wagoner POLITICAL SCIENCE RESEARCH ASSISTANT, [facility]DENISE NgoMT Pat. Stat.:Inpatient Nuclear Event ID:[id number] Order ID: [id number] Reason for Study:CAD, unspecified* History / Clinical:Congestive heart failure, Coronary artery disease, Coronary artery stent, Diabetes, Hyperlipidemia, Hyper tension, Asthma, Dementia, Depression, Prostate Cancer, Neuropathy Procedures: Single Day Rest / Stress, Viability Clinical Symptoms:Regadenoson SUMMARY: SCINTIGRAPHIC RESULTS Perfusion Defect Size (% LV) 45% Total 0% Ischemia 45% Scar Left Ventricular Perfusion Results There is a large, severe apical, apical anterior and a pical septal apical perfusion defect during stress which remains un changed with rest and redistribution imaging. There is a large, m oderate severity basal and mid inferior, infero-septal perfusion defe ct during stress which remains unchanged with rest and redistribution i maging. Gated SPECT Results The post stress left ventricular ejection fraction is 22% with akinesis of all hypoperfused taylor . Left ventricu lar end-diastolic volume is 271 ml; end-systolic volume is 211 ml. T he left ventricle is severely enlarged at stress and rest Conclusion Abnormal regadenoson Tc-99m tetrofosmin/rest and redis tribution thallium-201 myocardial perfusion study compatible wit h scar in the mid to distal left anterior descending and subendocard ial scar in the right coronary artery vascular territory. The LVEF is severely depressed. The diagonal and LCX territories are viab le., as well as the proximal and mid anterior wall. No evidence of isc hemia. Comments The study results indicate a high (>2%) annual risk fo r a cardiac or non-fatal myocardial infarction. Study Quality/Artifacts The study quality is good. Comparison to Previous Study None available. FINDINGS: STRESS: Baseline Vital Signs: Intervention Regadenoson 0.4mg/5ml IV over 10 seconds followed by radiotracer injection a nd 5ml saline flush Baseline EKG Normal Sinus Rhythm, Nonspecific T wave a bnormity Heart Rate: 98 Atropine Administered: 0 Rest BP: 119/73 Stress Test Results: Target HR: 119 Symptoms and Complications: Stress-induced Arrhythmias None Reason for Stopping Test: CAD Symptoms During Test Dizziness Complications None ECG / Stress Interpretation: No ischemic ST segment ch corey occurred with stress. Signed 09/27/2019 06:18 PM Ramos Sanders MD Procedure Note Interface, Radiology Results In - 2018 6:18 PM [facility] [[email or web address]] Nuclear Cardiology and Cardiac CT [address] [address] Myocardial Perfusion I maging Report Stress ECG tracings are available in [employer], [employer] and [employer] Web All ECG interpretations are in cluded in this report Pat.Name: DEMETRIUS SARMIENTO Pat.I D: [id number] .Date: 09/27/2019 Refer.MD: JAYSON AGUILAR MD Exam Time: 10:43:00 AM Study Type:Myocardial Perfusion Imaging Height: 67in Age: 6 1940,79Y Sex: MALE BP: 119/73 HR: 98 bpm Nuclear Tech:Lynn Wagoner [facility]/Peyman Dumont [facility] Pat. Stat.:Inpatient Nucle ar Event ID:[id number] Order ID: [id number] Reason for Study:CAD, unspecified* History / Clinical:Congestive heart fail ure, Coronary artery disease, Coronary artery stent, Diabetes, Hyperli pidemia, Hypertension, Asthma, Dementia, Depression, Prostate Cancer, N europathy Procedures: Single Day Rest / Stress, Vi ability Clinical Symptoms:Regadenoson SUMMARY: SCINTIGRAPHIC RESULTS Perfusion Defect Size (% LV) 45% Total 0% Ischemia 45% Scar Left Ventricular Perfusion Results There is a large, severe apical, apical anterior and apical septal apical perfusion defect during stress wh ich remains unchanged with rest and redistribution imaging. There is a large, moderate severity basal and mid inferior, infero-septal p erfusion defect during stress which remains unchanged with rest and re distribution imaging. Gated SPECT Results The post stress left ventricular ejectio n fraction is 22% with akinesis of all hypoperfused taylor . L eft ventricular end-diastolic volume is 271 ml; end-systolic volume is 211 ml. The left ventricle is severely enlarged at stress and rest Conclusion Abnormal regadenoson Tc-99m tetrofosmin/ rest and redistribution thallium-201 myocardial perfusion study compatible with scar in the mid to distal left anterior descending a nd subendocardial scar in the right coronary artery vascular territory . The LVEF is severely depressed. The diagonal and LCX territo thom are viable., as well as the proximal and mid anterior wall. No e vidence of ischemia. Comments The study results indicate a high (>2%) annual risk for a cardiac or non-fatal myocardial infarction . Study Quality/Artifacts The study quality is good. Comparison to Previous Study None available. FINDINGS: STRESS: Baseline Vital Signs: Inter vention Regadenoson 0.4mg/5ml IV over 10 seconds followed by radiotrac er injection and 5ml saline flush Baseline EKG Normal Sinus Rhythm, Nonspe cific T wave abnormity Heart Rate: 98 Atrop ine Administered: 0 Rest BP: 119/73 Stress Test Results: Target HR: 119 Symptoms and Complications: Stress-induced Arrhythmias None Reason for Stopping Test: CAD Symptoms During Test Dizziness Complications None ECG / Stress Interpretation: No ischemic ST segment change occurred with stress. Signed 09/27/2019 06:18 PM Ramos Sanders MD Performing Organization Address [facility] Phone Number [facility] [address] [place] [address] Activated clotting time (09/26/2019 5:40 PM LEAVE COORDINATOR)Only the most recent of5 resultswithin the time period is included. Activated clotting 169 (H) 96 - 152 sec [facility] Comment: HOSPITAL Meter ID: [id number] Collector Of Aquarium Specimens: José Luis Allen Performing Organization Address [facility]/Zipcode Phone Number [facility] DEPARTMENT OF PATHOLOGY AND [address] [place] [phone] GENOMIC MEDICINE [address] [address] medical laboratory specialist procedure (09/26/2019 4:54 PM LEAVE COORDINATOR) Specimen Narrative Performed At This result has an attachment that is no t available. CARDIAC CATHETERIZATION PROCEDURE NOTE [facility] PROCEDURES PERFORMED 1. Left Heart Catheterization (LHC) 2. Selective Coronary Angiography (SCA) 3. LV pressures without ventriculogram. CLAM SHOVEL OPERATOR Jono Prieto, Heavy Equipment Mechanic SPIDER ASSEMBLER Joleen Borrego ANESTHESIA USED Local 2% lidocaine, Conscious Sedation DESCRIPTION OF PROCEDURE The procedure was described to the patient including b enefits, risks, and alternatives to the procedure. The patient confirmed understanding and signed the informed consent. The patient was brought to dye lab technician, room [facility] of [facility]. Patient was prepped a nd draped in sterile fashion. Conscious sedation provided to patient throug hout procedure with appropriate monitoring. The right common femoral artery (HAND TIRE TRIMMER) was palpated and the region above the artery was anesthetized with 2% local lidocaine. Using micropuncture technique and fluoroscopic guidance, arterial access w as obtained in the right HAND TIRE TRIMMER and a 4F sheath was placed without difficult y. A 4F diagnostic JL4 was advanced over a J-tipped wire to the ascending aorta. The J wire was removed, the catheter aspirate d to ensure no air was in the system and flushed in the usual fashion. The diagnostic catheter engaged the left main coronary artery without difficulty. Angiograms of the left coronary system were taken in s everal various orthogonal angles. The diagnostic catheter used for the left coronary was subsequently removed and a 4F diagnostic 3DRC was advanced over a J -tipped wire to the ascending aorta.The J wire was removed, the catheter a spirated to ensure no air was in the system and flushed in the usual fash ion. The diagnostic catheter engaged the right coronary artery without dif ficulty. Angiograms of the right coronary system were taken in several sloan ious orthogonal angles. The diagnostic catheter used for the right coronary wa s subsequently removed and a 4F pigtail catheter was advanced over th e wire and guided into the left ventricle. The J wire was removed, the catheter aspirated to ensure no air was in the system and flushed in the usual fashion. LVEDP of 40mmHg was measured. The catheter was then pulled back across the aortic valve and there was not a gradient across t he valve. The pigtail catheter was then removed. CORONARY ANGIOGRAM FINDINGS: LAD 65 % Stenosis proximal to prior stent LCx Diffuse non-significant stenosis RCA 50-60 % Stenosis in the proximal and mid seg ments of a diffusely disease vessel Attending: Dr. Jono Prieto Interventional Fellow: Joleen Borrego EQUIPMENT/ANTICOAGULATION: Right Common Femoral Artery 6F Sheath XB LAD 3.5 and 3DRC Guide Catheter Verrata Wire coronary wire Anticoagulation: Heparin with ACT >250 sec prior to procedure PROCEDURAL DETAILS: The LMT was engaged with the XB LAD 3.5 Guide Cathet er and a Verrata Wire coronary wire was advanced into the distal LAD. The l esion in the proximal LAD was assessed for significance with iFR. Values of 0.80 were obtained concerning for significant lesion. The RCA was engaged with the 3DRC Guide Catheter and aVerrata coronary wire was advanced into the distal PDA. The lesion in t he proximal and mid RCA were assessed with iFR. Values of 0.94 were obtain ed determining non-significance of the lesions. HEMOSTASIS: Manual Pressure ADDITIONAL POST-PROCEDURE MEDICATIONS: PLAN: 1. ASA 81mg daily 2. Will obtain viability study to assess for scar thomas en in the LAD territory prior to planning for potential PCI of proxi mal LAD. 3. Cardiac medical therapy and aggressive risk factor modification. Cardiac rehabilitation. 4. Transferred in stable condition Performing Organization Address City/State/Zipcode Phone Number [facility] [address] [place] [address], Echocardiogram complete w contrast and 3D if needed (09/26/2019 11:36 AM LEAVE COORDINATOR) Specimen Narrative Performed At [employer] Echo cardiography Report [address] [facility], [facility] [address], [place] [address] Pat.Name: DEMETRIUS SARMIENTO Pat.ID: [id number] .Date: 09/26/2019 Refer.MD: JONO PRIETO MD Exam Time: 10:57:00 AM Study Type:Ro utine Echo Height: 67in Weight: 174lb BSA: 1.91 m2 Ag e: 1940,79Y Sex: MALE BP: 100/66 HR: 87 bpm Sonogrphr: VIOLETTE Polanco; Cleo Delong i (Student) Pat. Stat.:Inpatient Room: A746 Study Status:Final Echo Event ID:[id number] Order ID: [id number] Reason for Study:NSTEMI, CHF History / Clinical:Congestive Heart Fail ure, Coronary Artery Disease, Diabetes, Dyspnea On Exertion, Hyperlipi demia, Hypertension Procedures: 2D Echo, Colorflow Doppler, Intravenous Lumason Contrast, Intravenous Definity Contrast, Strain Race: C SUMMARY: LV EF is severely depressed. Global hypokinesis. RV systolic function is normal. LV relaxation is impaired. LV filling pressure is elevated. Insufficient TR jet to estimate PA systo lic pressure. FINDINGS: LV: LV size is moderately enlarged. LV EF is severely depressed. Global hypokinesis. Est imated EF is 20-24%. RV: RV size is normal. RV systo lic function is normal. RV wall motion is normal. LA: LA volume is severely enlar ged. RA: RA size is normal. AO: Aortic root diameter is nor mal. KERRIE: No pericardial effusion. AV: Mild thickening of AV leafl ets. A trace of aortic regurgitation. MV: Mild mitral annular calcifi cation. Mild mitral regurgitation. PV: No structural PV abnormalit ies noted. TV: No structural TV abnormalit ies noted. Thao: LV relaxation is impaired. L V filling pressure is elevated. Other: Insufficient TR jet to estim ate PA systolic pressure. MEASUREMENTS: 2D Parasternal [place] Ao An 2.4 cm LVPWd 1.1 cm Ao Rtd 3.4 cm Index 1.8 cm/m2 LA Ds 3.5 cm IVSd 1.1 cm RWT 0.4 LVIDd 5.8 cm Index 3 cm/m2 LV Mass 272.3 g (122-17 4) LVIDs 4.8 cm LVM In dex 142.6 g/m LV%fs 17.6 % LA Sng Plane LA Area 29 cm (8.8-23.4) LA Vol 102 ml Index 53.4 ml/m2 LA LngAx 7 cm RA Sng Plane RA Vol 35.2 ml Index 18.4 ml/m2 RA LngAx 5.2 cm RA Area 14.7 cm (8.3-19 .5) LVOT Stroke Vol LVOT 2 cm LVOT LVOT Area 3.1 cm DOPPLER LVOT Stroke Vol LVOT TVI 15.3 cm LVOT CI 2.4 l/m/m LVOT SV 48.1 ml HR 96 bpm LVOT CO 4.6 l/min LVOT SVi 25.2 ml/m Signed 09/26/2019 01:45 PM Monique Parra M.D. Procedure Note Interface, Radiology Results In - 2018 1:45 PM LEAVE COORDINATOR Echocardiography Report [address] [place] [address] Pat.Name: DEMETRIUS SARMIENTO Pat.I D: [id number] .Date: 09/26/2019 Refer .MD: JONO PRIETO MD Exam Time: 10:57:00 AM Study Type:Routine Echo Height: 67in Weigh t: 174lb BSA: 1.91 m2 Age: 5 1940,79Y Sex: MALE BP: 100/66 HR: 87 bpm Sonogrphr: VIOLETTE Polanco; Cleo Delong i (Student) Pat. Stat.:Inpatient Room: [facility] Study Status:Final Echo Event ID:[id number] Order ID: [id number] Reason for Study:NSTEMI, CHF History / Clinical:Congestive Heart Fail ure, Coronary Artery Disease, Diabetes, Dyspnea On Exertion, Hyperlipi demia, Hypertension Procedures: 2D Echo, Colorflow Doppler, Intravenous Lumason Contrast, Intravenous Definity Contrast, Strain Race: C SUMMARY: LV EF is severely depressed. Global hypokinesis. RV systolic function is normal. LV relaxation is impaired. LV filling pressure is elevated. Insufficient TR jet to estimate PA systo lic pressure. FINDINGS: LV: LV size is moderately enlarged . LV EF is severely depressed. Global hypokinesis. Estimated EF is 20-24%. RV: RV size is normal. RV systolic function is normal. RV wall motion is normal. LA: LA volume is severely enlarged . RA: RA size is normal. AO: Aortic root diameter is normal . KERRIE: No pericardial effusion. AV: Mild thickening of AV leaflets . A trace of aortic regurgitation. MV: Mild mitral annular calcificat ion. Mild mitral regurgitation. PV: No structural PV abnormalities noted. TV: No structural TV abnormalities noted. Thao: LV relaxation is impaired. LV filling pressure is elevated. Other: Insufficient TR jet to estimat e PA systolic pressure. MEASUREMENTS: 2D Parasternal [place] Ao An 2.4 cm LVPW d 1.1 cm Ao Rtd 3.4 cm Inde x 1.8 cm/m2 LA Ds 3.5 cm IVSd 1.1 cm RWT 0.4 LVIDd 5.8 cm Inde x 3 cm/m2 LV Mass 272.3 g (122-174) LVIDs 4.8 cm LVM Index 142.6 g/m LV%fs 17.6 % LA Sng Plane LA Area 29 cm (8.8-23.4) L A Vol 102 ml Index 53.4 ml/m2 LA LngAx 7 cm RA Sng Plane RA Vol 35.2 ml Inde x 18.4 ml/m2 RA LngAx 5.2 cm RA Area 14.7 cm (8.3-19.5) LVOT Stroke Vol LVOT 2 cm LVOT LVOT Area 3.1 cm DOPPLER LVOT Stroke Vol LVOT TVI 15.3 cm LVOT CI 2.4 l/m/m LVOT SV 48.1 ml HR 96 bpm LVOT CO 4.6 l/min LVOT SVi 25.2 ml/m Signed 09/26/2019 01:45 PM Monique Parra M.D. Performing Organization Address [facility] Hospital[facility] Phone Number [facility] [address] [place] [address] Anti Xa, unfractionated (09/26/2019 6:30 AM LEAVE COORDINATOR)Only the most recent of4 resultswithin the time period is included. Anti Xa, 0.23 (L)Comment: 0.30 - 0.70 [place] unfractionated Therapeutic Range: U/mL [facility] 0.30 - 0.70 U/mL HOSPITAL Specimen Blood Performing Organization Address [facility] Phone Number [facility] DEPARTMENT OF PATHOLOGY AND [address] [place] [address] [phone] [address] Magnesium level (09/26/2019 4:00 AM LEAVE COORDINATOR)Only the most recent of3 resultswithin the time period is included. Pathologist [facility] Magnesium 2.0 1.6 - 2.4 mg/dL [facility] L Specimen Plasma specimen Performing Organization Address [facility] Phone Number [facility] DEPARTMENT OF PATHOLOGY AND [address] [place] [address] [phone] [address] Troponin (09/25/2019 2:39 PM LEAVE COORDINATOR)Only the most recent of3 resultswithin the time period is included. Pathologist [facility] Troponin 1.070 (H) 0.000 - 0.040 [facility] Comment: ng/mL [facility] changed methodology eff ective: 03/22/2019 at 10:00 am The new method has a 99th percentile cutoff of 0.040 n g/mL Specimen Plasma specimen Performing Organization [facility]/Zipcode Phone Number [facility] DEPARTMENT OF PATHOLOGY AND [address] [place], [place] [address] [facility] [address] [place] [address] Potassium level (09/25/2019 2:39 PM LEAVE COORDINATOR) Pathologist Sig nature Potassium 3.7 3.5 - 5.0 mEq/L [facility] L Specimen Plasma specimen Performing Organization Address [facility]/Zipcode Phone Number [facility] DEPARTMENT OF PATHOLOGY AND [address] [place], [place] [address] [facility] [address] [place] [address] XR Chest 1 Vw Portable (09/25/2019 9:41 AM LEAVE COORDINATOR) Specimen Narrative Performed At [facility] CHEST [facility] IND[facility]: R O pneumonia COMPARISON: 12/14/2018 IMPRESSION: Heart is normal in size with mild atherosclerosis of t he aorta. There is minimal left basilar atelectasis with questionable tra ce fluid. There is no pneumothorax. Bones demonstrates stable degenerativ e changes with thoracic stimulator lead noted. No acute change. *[facility]-[id number] Procedure Note Hm Interface, Radiology Results Incoming - 09/25/2019 10:13 AM LEAVE COORDINATOR XR CHEST 1 VW PORTABLE CLINICAL INDICATION: R O pneumonia COMPARISON: 12/14/2018 IMPRESSION: Heart is normal in size with mild athero sclerosis of the aorta. There is minimal left basilar atelectasis with questionable trace fluid. There is no pneumothorax. Bones demonstrates stable degenerative changes with thoracic stimulator lead noted. No acute change. *[facility]-[id number] Performing Organization Address [facility] Phone Number [facility] [address] [place] [address] CT Head Wo Contrast (09/25/2019 8:50 AM LEAVE COORDINATOR) Specimen Narrative Performed At EXAMINATION: CT HEAD [facility]ICAL HISTORY: Altered level of consc iousness (LOC) unexplained COMPARISON: 12/13/2018. TECHNIQUE: Noncontrast CT of the brain was performed f rom the skull base to the vertex. Both soft tissue and bone reconstructio n algorithms are interpreted. CT imaging was performed with iterative reconstruction techniques and/or automated exposure control to reduce rad iation dose. FINDINGS: No intracranial hemorrhage, extra-axial collection, or mass-effect is seen. No acute cortical infarct is identified. No hy perdense vessel is seen. Involutional changes of brain are again noted with mil b-xn-rojokqxv chronic small vessel ischemic changes. No air-fluid level is seen in the visualized portions of the paranasal sinuses. Mastoid air cells are clear. IMPRESSION: No acute intracranial abnormality identi fied. No significant interval change. [facility]-[id number] Procedure Note Hm Interface, Radiology Results Incoming - 09/25/2019 8:57 AM LEAVE COORDINATOR EXAMINATION: CT HEAD WO CONTRAST CLINICAL HISTORY: Altered level of consc iousness (LOC) unexplained COMPARISON: 12/13/2018. TECHNIQUE: Noncontrast CT of the brain w as performed from the skull base to the vertex. Both soft tissue and bone reconstruction algorithms are interpreted. CT imaging was performed with iterative reconstruction techniques and/or automated exposure control to reduce radiation dose. FINDINGS: No intracranial hemorrhage, extra-axial collection, or mass-effect is seen. No acute cortical infarct is identified. No hyperdense vessel is seen. Involutional changes of brain are again noted with upff-yg-wilngsjj chronic small vessel ischemic changes. No air-fluid level is seen in the visual ized portions of the paranasal sinuses. Mastoid air cells are clear. IMPRESSION: No acute intracranial abnormality identi fied. No significant interval change. [facility]-[id number] Performing Organization Address City/[facility]/Zipcode Phone Number [facility] [address] [place] [address] Arterial blood gas (09/25/2019 8:30 AM LEAVE COORDINATOR) Pathologist Sig nature pH, arterial 7.44 7.35 - 7.45 [facility] pCO2, arterial 41 35 - 45 mmHg [facility] pO2, arterial 100 (H) 80 - 90 mmHg [facility] Bicarbonate, 27.4 21.0 - 28.0 [facility] arterial mmol/L HOSPITAL Base excess, 3 (H) -2 - 2 mEq/L [facility] O2 saturation, 98 95 - 100 % [facility] Specimen Blood Performing Organization Address City/[facility] Phone Number [facility] DEPARTMENT OF PATHOLOGY AND [address] [place], [place] [address] GENOMIC MEDICINE [address] [address] Partial thromboplastin time, activated (09/25/2019 6:20 AM LEAVE COORDINATOR)Only the most recent of2 resultswithin the time period is included. PTT 61.6 (H) 23.0 - 36.0 [facility] Comment: sec HOSPITAL PTT therapeutic range for unfractionated heparin is 61.0-112.0 seconds which corresponds to Anti-Xa 0.3-0.7 U/ml. Specimen Blood Performing Organization Address City/[facility] Phone Number [facility] DEPARTMENT OF PATHOLOGY AND [address] [place] [address] [phone] [address] Thyroid stimulating hormone (09/25/2019 6:20 AM LEAVE COORDINATOR) Pathologist Sig [facility] TSH 2.58 0.27 - 4.20 uIU/mL [facility] ITAL Specimen Plasma specimen Performing Organization Address [facility] Phone Number [facility] DEPARTMENT OF PATHOLOGY AND [address] [place] [address] [phone] [address] CBC hemogram (09/24/2019 9:10 PM LEAVE COORDINATOR) Pathologist [facility] WBC 7.82 4.50 - 11.00 k/uL [facility] RBC 4.34 (L) 4.40 - 6.00 m/uL [facility] HGB 12.7 (L) 14.0 - 18.0 g/dL [facility] HCT 38.5 (L) 41.0 - 51.0 % [facility] MCV 88.7 82.0 - 100.0 fL [facility] MCH 29.3 27.0 - 34.0 pg [facility] MCHC 33.0 31.0 - 37.0 g/dL [facility] RDW - SD 45.3 37.0 - 55.0 fL [facility] MPV 11.6 8.8 - 13.2 fL [facility] Platelet count 137 (L) 150 - 400 k/uL [facility] Nucleated RBC 0.00 /100 WBC [facility] Specimen Blood Performing Organization Address [facility] Phone Number [facility] DEPARTMENT OF PATHOLOGY AND [address] [place] [address] [phone] [address] Prothrombin time with INR (09/24/2019 9:00 PM LEAVE COORDINATOR) Prothrombin time 15.4 (H) 11.5 - 14.5 [facility] INR 1.2 [place] Comment: SABIANIST The International Normalized Ratio (INR) is a therapeu [facility] monitoring tool for patients who are stable on oral anticoagulant therapy. An INR of 2.0-3.0 is suggested for deep vein thrombosis/pulmonary embolism. Specimen Blood Performing Organization Address City/[facility] Phone Number [facility] DEPARTMENT OF PATHOLOGY AND [address] [place] [address] [phone] [address] T4, free (09/24/2019 9:00 PM LEAVE COORDINATOR) Pathologist Sig nature T4, free 1.3 0.9 - 1.7 ng/dL [facility] L Specimen Plasma specimen Performing Organization Address [facility] Phone Number [facility] DEPARTMENT OF PATHOLOGY AND [address] [place] [address] [phone] [address] Lipid panel (09/24/2019 9:00 PM LEAVE COORDINATOR) Cholesterol 126 <200 mg/dL [facility] Triglycerides 92 <150 mg/dL [facility] HDL cholesterol 67 >40 mg/dL [facility] LDL cholesterol 60Comment: Result <100 mg/dL [place] obtained by direct SABIANIST LDL measurement [facility] Lipid panel SeeBelow [place] interpretation Comment: SABIANIST Total Cholesterol (mg/dL) HOSPIT AL <200 Desirable 200-239 Borderline-high >=240 High Triglycerides (mg/dL) <150 Normal 150-199 Borderline-high 200-499 High >=500 Very high HDL Cholesterol (mg/dL) <40 Low (male) <40 Low (female) LDL Cholesterol (mg/dL) <100 Optimal 100-129 Near or above optimal 130-159 Borderline-high 160-189 High >=190 Very high Risk Catergories that modify LDL goals. Risk Catergories LDL goal (mg/d L) CHD and CHD risk equivalent <100 (10-year risk >20%) Multiple (2+) risk factors <130 (10-year risk =<20%) 0-1 risk factors <160 (<10-year risk) Defining levels of lipids in metabolic syndrome Triglycerides >=150 mg/dL HDL Cholesterol Men <40 mg /dL Women <40 mg/ dL Non-HDL cholesterol is a second target for therapy in persons with high triglycerides (>=200 mg/dL) Specimen Plasma specimen Performing Organization Address City/State/Zipcode Phone Number [facility] DEPARTMENT OF PATHOLOGY AND [address] [place], [place] [address] GENOMIC MEDICINE [facility] [address] [place] [address] after 07/13/2019 Insurance Payer Benefit Plan / Subscriber ID Effective Dates Phone Addre ss Type Group MEDICAID MEDICAID xxxxxxxxx 2016-Present Me dicaid [facility] MEDICARE [facility] DUAL COMPLETE xxxxxxxxx 2019-Present O [facility] Advance Directives For more information, please contact: [phone] Type Date Recorded 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
--- OUTSIDE RECORDS SUMMARY | 2020-07-13 07:40 | XMS REPORT | Summary of Care ---
:1940 Author Organization [facility] - Health Address [address] [place] [id number] Care Team Providers Name Role Phone MD Trang Primary Care Provider Reason for Referral (ADAMA) Status Reason Specialty Diagnoses / Referred By Referred To Procedures Contact Contact New Request Vascular Surgery Procedures Charanjit Heck, UNILATERAL DUPLEX SCAN OF ARTERY BY [address] [place] [address] VASCULAR LAB [facility] UNILATERAL DUPLEX Rt [facility] SCAN OF ARTERY BY [place] VASCULAR LAB [facility] (STAT) Status Reason Specialty Diagnoses / Referred By Referred To Procedures Contact Contact New Request Diagnostic Diagnoses Acute left ankle pain Charanjit Heck, Radiology Procedures XR ANKLE 3+ VW LEFT [address] [place] [address] [place] [phone] Reason for Visit Reason Comments Foot Pain Auth/Cert Status Reason Specialty Diagnoses / Referred By Referred To Procedures Contact Contact Emergency Medicine Diagnoses LT FOOT PAIN,BURNING/TINGLING SENSATION [facility] Emergency Dept [address] [place] [phone] Fax: Encounter Details Date Type Department Care Team Description 05/24/2020 Emergency ADC-Emergency Charanjit Heck MD Acute left ankle pain (Primary Dx); Department [address] [place] [address] [place], [place] [address], [place] [address] [place] [address] [phone] Allergies No Known Allergiesdocumented as of this encounter (statuses as of 05/24/2020) Medications Medication Sig Dispensed Refills Start Date End Date Status aspirin 81 mg Take 1 tablet by 30 tablet 3 03/24/2020 Active chewable mouth daily with tabletIndications: breakfast. Chest pain, unspecified type furosemide 20 mg Take 1 tablet by 30 tablet 3 03/24/2020 Active tabletIndications: mouth daily. Chest pain, unspecified type isosorbide Take 1.5 tablets 45 tablet 3 03/23/2020 A ctive mononitrate 60 mg 24 by mouth daily. hr tabletIndications: Chest pain, unspecified type traMADol 50 mg Take 1 tablet by 15 tablet 0 05/24/2020 020 Active tabletIndications: mouth every 8 acute pain (eight) hours as needed for Pain (scale 4-6) for up to 5 days. 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 02/23/2017 documented as of this encounter (statuses as of 05/24/2020) Immunizations Name Administration Dates Next Due Influenza Virus Vaccine 09/09/2018 Pneumococcal Polysaccharide, PPSV23 (PNEUMOVAX) 11/02/2016 documented as of this encounter Social History Tobacco Use Types Packs/Day Years Used Date Former Smoker 1 40 Quit: 1994 Smokeless Tobacco: Former User Q uit: 1994 Alcohol Use Drinks/Week oz/Week Comments No Sex Assigned at Date Recorded Not on file Job Start Date Occupation Industry Not on file Not on file Not on file Travel History Travel Start Travel End No recent travel history available. COVID-19 Exposure Response Date Recorded In the last month, have you been in contact with No / Unsure 05/24/2020 6:35 AM CDT someone who was confirmed or suspected to have Coronavirus / COVID-19? documented as of this encounter Last Filed Vital Signs Vital Sign Reading Time Taken Comments Blood Pressure 166/89 05/24/2020 10:47 AM CDT Pulse 86 05/24/2020 10:47 AM CDT Temperature 36.9 C (98.5 F) 05/24/2020 6:44 AM CDT Respiratory Rate 16 05/24/2020 10:47 AM CDT Oxygen Saturation 97% 05/24/2020 10:47 AM CDT Inhaled Oxygen Concentration - - Weight 74.8 kg (165 lb) 05/24/2020 6:44 AM CDT Height 172.7 cm (5' 8") 05/24/2020 6:44 AM CDT Body Mass Index 25.09 05/24/2020 6:44 AM CDT documented in this encounter Discharge Instructions InstructionsCharanjit Heck MD - 05/24/2020Charanjit Heck Jr., MD Clinical [employer]or [employer] [facility] Emergency Department AttachmentsThe following attachments cannot be sent through Care Everywhere. Tendonitis (Eritrean)documented in this encounter Plan of Treatment Health Maintenance Due Date Last Done Comments EYE EXAM 1950 URINE MICROALBUMIN 1950 DTaP,Tdap,and Td Vaccines (1 - 1950 Tdap) Zoster Recombinant Vaccine 1989 (SHINGRIX) (1 of 2) Medicare Wellness Visit 2004 PNEUMOCOCCAL VACCINES 65+ (2 of 2 11/02/2017 11/02/2016 - PCV13) FOOT EXAM 01/22/2020 01/21/2019, 01/21/2019, 12/24/2018, Additional history exists INFLUENZA VACCINE (#1) 2020 09/09/2018 HgA1C 08/30/2020 02/29/2020, 01/15/2020, 09/06/2019, Additional history exists Depression Screening 11/02/2020 11/02/2019 CREATININE (SERUM) 03/23/2021 03/23/2020, 03/23/2020, 03/22/2020, Additional history exists LDL-C 03/23/2021 03/23/2020, 01/16/2020 documented as of this encounter Procedures Procedure Name Priority Date/Time Associated Comments Diagnosis UNILATERAL DUPLEX ADAMA 05/24/2020 9:53 SCAN OF ARTERY BY AM CDT VASCULAR LAB XR ANKLE 3+ VW LEFT STAT 05/24/2020 8:22 Acute left ankle Results for this AM CDT pain procedure are i n the results section. CBC WITH DIFFERENTIAL STAT 05/24/2020 8:13 Acute left ankl e Results for this AM CDT pain procedure are i n the results section. ACTIVATED PARTIAL STAT 05/24/2020 8:13 Acute left ankle Re sults for this THRMPLAS JACEK AM CDT pain procedure are i n the results section. PROTHROMBIN TIME / STAT 05/24/2020 8:13 Acute left ankle R esults for this INR AM CDT pain procedure are i n the results section. CBC WITH DIFFERENTIAL Routine 05/24/2020 8:13 Acute left ankl e Results for this AM CDT pain procedure are i n the results section. BASIC METABOLIC PANEL STAT 05/24/2020 8:13 Acute left ankl e Results for this (NA, K, CL, CO2, AM CDT pain procedure a re in GLUCOSE, BUN, the results CREATININE, CA) section. HEPATIC FUNCTION STAT 05/24/2020 8:13 Acute left ankle Res ults for this PANEL (20303) AM CDT pain procedure are in (ALB,T.PRO,BILI the results T,BU/BC,ALT,AST,ALK section. PHOS) NOTICE OF PRIVACY Routine 05/24/2020 6:38 PRACTICES AM CDT CONSENT/REFUSAL FOR Routine 05/24/2020 6:35 DIAGNOSIS AND AM CDT TREATMENT documented in this encounter Results XR ANKLE 3+ VW LEFT (05/24/2020 8:22 AM CDT) Specimen Narrative Performed At HISTORY: Pain. PACS/VR/DOSE FINDINGS: AP, lateral, oblique views of left ankle obt ained with portable technique showed no acute fracture or di slocation. No talar dome lesion. Minimal degenerative changes are seen in the medial tibiotalar joint. No heel spur. No significant ankle joint effusion or aggr essive bone lesions seen. CONCLUSIONS: No acute fracture or disloc ation in left ankle. Procedure Note [facility], Radiant Results Inft User - 2019 8:27 AM CDT HISTORY: Pain. FINDINGS: AP, lateral, oblique views of left ankle obtained with portable technique showed no acute fracture or di slocation. No talar dome lesion. Minimal degenerative changes are seen in the medial tibiotalar joint. No heel spur. No significant ankle joint ef fusion or aggressive bone lesions seen. CONCLUSIONS: No acute fracture or disloc ation in left ankle. Performing Organization Address City/State/Zipcode Phone Number PACS/VR/DOSE CBC WITH DIFFERENTIAL (05/24/2020 8:13 AM CDT) Pathologist Sig nature WBC 5.65 4.20 - 10.70 [facility] 10*3/L HOSPITAL LAB[facility] RBC 3.79 (L) 4.26 - 5.52 [facility] 10*6/L HOSPITAL LAB[facility] HGB 12.4 12.2 - 16.4 [facility] g/dL [facility] HCT 35.9 (L) 38.4 - 49.3 % [facility] MCV 94.7 81.7 - 95.6 fL [facility] MCH 32.7 26.1 - 32.7 pg [facility] MCHC 34.5 31.2 - 35.0 [facility] g/dL HOSPITAL LAB[facility]ORY RDW-SD 42.6 38.5 - 51.6 fL [facility] RDW-CV 12.3 12.1 - 15.4 % [facility] PLT 150 150 - 328 [facility] 10*3/L [facility] MPV 9.9 9.8 - 13.0 fL [facility] NRBC/100 WBC 0.0 0.0 - 10.0 /100 [facility] WBCs [facility] NRBC x10^3 <0.01 10*3/L [facility] GRAN MAT (NEUT) % 55.1 % [facility] IMM GRAN % 0.20 % [facility] LYMPH % 28.8 % [facility] MONO % 11.3 % [facility] EOS % 3.5 % [facility] BASO % 1.1 % [facility] GRAN MAT x10^3(ANC) 3.11 1.99 - 6.95 [facility] 10*3/uL HOSPITAL LABORATORY IMM GRAN x10^3 <0.03 0.00 - 0.06 [facility] 10*3/uL HOSPITAL LAB[facility] LYMPH x10^3 1.63 1.09 - 3.23 [facility] 10*3/uL HOSPITAL LAB[facility] MONO x10^3 0.64 0.36 - 1.02 [facility] 10*3/uL [facility] EOS x10^3 0.20 0.06 - 0.53 [facility] 10*3/uL [facility] BASO x10^3 0.06 0.01 - 0.[address]3/uL [facility] Specimen Blood - ARM, RIGHT Performing Organization Address City/[facility] Phone Number [facility] CLIA: [id number], [address] [place] [place] [address] Prothrombin Time (PT) / INR (05/24/2020 8:13 AM CDT) [facility] Signature PROTIME PATIENT 12.8 12.0 - 14.7 [facility] LABORATORY INR 1.0Comment: Normal [facility] INR <1.1; Warfarin [facility] Therapeutic range LABORATORY 2.0 to 3.0 or 2.5 to 3.5, depending upon the indications. Specimen Blood - ARM, RIGHT Performing Organization Address City/[facility] Phone Number [facility] CLIA: [id number], [address] [place] [place], [place] [address] aPTT (05/24/2020 8:13 AM CDT) Pathologist Sig nature APTT Patient 26 23 - 38 Seconds [facility] Specimen Blood - ARM, RIGHT Narrative Performed At The [facility] patient population mean normal value [facility] for aPTT is 30 seconds. Performing Organization Address City/[facility] Phone Number [facility] CLIA: [id number], [address] [place] [place], [place] [address] Hepatic Function Panel (ALB, T.PRO, BILI T, BU/BC, ALT, AST, ALK PHOS) (05/24/2020 8:13 AM CDT) Pathologist Sig nature TOTAL BILI 0.9 0.1 - 1.1 mg/dL [facility] BILI UNCON 1.0 0.1 - 1.1 mg/dL [facility] BILI CONJ 0.0 0.0 - 0.3 mg/dL [facility] T PROTEIN 7.0 6.3 - 8.2 g/dL [facility] ALBUMIN 4.2 3.5 - 5.0 g/dL [facility] ALK PHOS 49 34 - 122 U/L [facility] ALTv 17 5 - 50 U/L [facility] AST(SGOT) 25 13 - 40 U/L [facility] Specimen Blood - ARM, RIGHT Performing Organization Address City/State/Zipcode Phone Number [facility] CLIA: [id number], [address] [place] [place] [address] Basic Metabolic Panel (NA, K, CL, CO2, GLUCOSE, BUN, CREATININE, CA) (05/24/2020 8:13 AM CDT) NA 139 135 - 145 [facility] mmol/L [facility] K 4.1 3.5 - 5.0 [facility] mmol/L [facility] CL 104 98 - 108 mmol/L [facility] CO2 TOTAL 26 23 - 31 mmol/L [facility] AGAP 9 2 - 16 [facility] BUN 22 7 - 23 mg/dL [facility] GLUCOSE 203 (H) 70 - 110 mg/dL [facility] CREATININE 1.40 (H) 0.60 - 1.25 [facility] mg/dL [facility] CALCIUM 9.1 8.6 - 10.6 [facility] mg/dL [facility] eGFR Calculation 48.6 mL/min/1.73m2 [facility] ([facility] LABORATORY [place]) eGFR Calculation 59.0 mL/min/1.73m2 [facility] ([facility] LABORATORY Specimen Blood - ARM, RIGHT Narrative Performed At Association of Glomerular Filtration Rate (GFR) [facility] and Staging of Kidney Disease* [...] tests). Performing Organization Address City/State/Zipcode Phone Number [facility] CLIA: [id number], [address] [place] [address] [address] [facility] [address] documented in this encounter Visit Diagnoses Diagnosis Acute left ankle pain - Primary Tendinopathy Unspecified disorder of synovium, tendon , and bursa documented in this encounter Administered Medications Medication Order MAR Action Action Date Dose Rate Site acetaminophen (TYLENOL) tablet Given 05/24/2020 9:49 AM CDT 1,0 00 mg 1,000 mg 1,000 mg, Oral, ONCE, 1 dose, Madhavi 05/24/20 at 1100, ADAMA documented in this encounter Insurance Payer Benefit Plan / Subscriber ID Effective Phone Address T [employer] [facility] [id number] 2019-Pres Medica re HEALTHCARE - HEALTHCARE ent Adv HM O MANAGED DUAL COMPLETE MEDICARE [facility] MEDICAID OF xxxxxxxxx 2018-Pres [phone] [place] [phone] [place] [address] documented as of this encounter
--- OUTSIDE RECORDS SUMMARY | 2020-07-13 07:40 | XMS REPORT | Summary of Care ---
:1940 Author Organization [facility] - [facility] Address [address] [place] [id number] Care Team Providers Name Role Phone MD Trang Primary Care Provider Reason for Referral MRI/CAT Scan (STAT) Status Reason Specialty Diagnoses / Referred By Referred To Procedures Contact Contact New Request Diagnostic Diagnoses Acute upper back pain [place], [place] Rad[facility] Procedures CT LUMBAR SPINE WO CONTRAST MD Stacy [address] [place] [address] MRI/CAT Scan (STAT) Status Reason Specialty Diagnoses / Referred By Referred To Procedures Contact Contact New Request Diagnostic Diagnoses Acute upper back pain [place], [place] Rad[facility] Procedures CT THORACIC SPINE WO CONTRAST MD [address]acy [address] [place] [address] MRI/CAT Scan (STAT) Status Reason Specialty Diagnoses / Referred By Referred To Procedures Contact Contact New Request Diagnostic Diagnoses Acute upper back pain [place], [place] Rad[facility] Procedures CT CERVICAL SPINE WO CONTRAST MD [address] [place] [address] Reason for Visit Reason Comments Back Pain chronic Auth/Cert Status Reason Specialty Diagnoses / Referred By Referred To Procedures Contact Contact Emergency Medicine [facility]ency Dept [address] [place] [address] Fax: Encounter Details Date Type Department Care Team Description 06/26/2020 Emergency [facility]-Emergency Martha Drake, Acute upp er back pain (Primary Dx); Department MD Primary osteoarthritis involving multipl e joints [id number] [place] [address] [place], [place] [phone] Allergies No Known Allergiesdocumented as of this encounter (statuses as of 06/26/2020) Medications Medication Sig Dispensed Refills Start Date End Date Status aspirin 81 mg chewable Take 1 tablet by 30 tablet 3 03/24/2020 Active tabletIndications: mouth daily with Chest pain, breakfast. unspecified type furosemide 20 mg Take 1 tablet by 30 tablet 3 03/24/2020 Active tabletIndications: mouth daily. Chest pain, unspecified type isosorbide mononitrate Take 1.5 tablets 45 tablet 3 03/23/2020 Active 60 mg 24 hr by mouth daily. tabletIndications: Chest pain, unspecified type acetaminophen-codeine Take 1 tablet by 20 tablet 0 06/26/2020 Active (TYLENOL-CODEINE #3) mouth every 6 300-30 mg (six) hours as tabletIndications: needed for Pain acute pain (scale 7-10). 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 02/23/2017 documented as of this encounter (statuses as of 06/26/2020) Immunizations Name Administration Dates Next Due Influenza Virus Vaccine 09/09/2018 Pneumococcal Polysaccharide, PPSV23 (PNEUMOVAX) 11/02/2016 documented as of this encounter Social History Tobacco Use Types Packs/Day Years Used Date Former Smoker 1 40 Quit: 1994 Smokeless Tobacco: Former User Q uit: 1994 Alcohol Use Drinks/Week oz/Week Comments No Sex Assigned at Date Recorded Not on file COVID-19 Exposure Response Date Recorded In the last month, have you been in contact with No / Unsure 06/26/2020 3:46 AM CDT someone who was confirmed or suspected to have Coronavirus / COVID-19? documented as of this encounter Last Filed Vital Signs Vital Sign Reading Time Taken Comments Blood Pressure 124/78 06/26/2020 5:00 AM CDT Pulse 98 06/26/2020 3:56 AM CDT Temperature 37.2 C (98.9 F) 06/26/2020 3:56 AM CDT Respiratory Rate 18 06/26/2020 5:00 AM CDT Oxygen Saturation 98% 06/26/2020 5:00 AM CDT Inhaled Oxygen Concentration - - Weight 74.8 kg (165 lb) 06/26/2020 3:56 AM CDT Height - - Body Mass Index 25.09 05/24/2020 6:44 AM CDT documented in this encounter Discharge Instructions Martha Horvath MD - 06/26/2020 DIAGNOSIS Diagnoses that have been ruled out: None Diagnoses that are still under consideration: None Final diagnoses: Acute upper back pain Primary osteoarthritis involving multiple joints NO LIFE-THREATENING FINDINGS ON TODAY'S EXAM. PROCEDURES IN THE ER TODAY: Orders Placed This Encounter Procedures CT CERVICAL SPINE WO CONTRAST CT THORACIC SPINE WO CONTRAST CT LUMBAR SPINE WO CONTRAST MEDICATIONS ADMINISTERED IN THE ER TODAY AND DISCHARGE MEDICATIONS: Orders Placed This Encounter Medications acetaminophen-codeine (TYLENOL-CODEINE #3) 300-30 mg tablet FOLLOW-UP RECOMMENDATIONS: RECOMMEND FOLLOW-UP WITH YOUR PRIMARY CARE PROVIDER OR SPECIALIST IN 2-5 DAYS, ESPECIALLY IF NO IMPROVEMENT IN SYMPTOMS. MAY FOLLOW-UP WITH A PROVIDER OF YOUR CHOICE, SUCH : 1. A PHYSICIAN OF YOUR CHOICE 2. [facility], . LOCATIONS IN [facility] 3. [facility], [address], [place]; [phone] OR, IF YOU WISH TO FOLLOW-UP WITHIN THE [facility], MAY TRY THESE OPTIONS (CLINIC APPOINTMENTS AVAILABLE ON CREC-HV-DJQZ BASIS): 1. SCHEDULE AN APPOINTMENT ONLINE AT WWW[facility] 2. OR CALL THE [facility] ACCESS CENTER AT OR 3. OR CALL YOUR [facility] PHYSICIAN'S OFFICE DIRECTLY IF YOU ARE ALREADY AN ESTABLISHED [facility] PATIENT. RETURN TO ER FOR WORSENING OF SYMPTOMS AttachmentsThe following attachments cannot be sent through Care Everywhere.Back Pain, Relieving (Azeri)documented in this encounter ED Notes Artemio Bojorquez, RN - 06/26/2020 3:54 AM CDTPatient states, "I have had low back pain for the past 3 days but I don't have any right now." Patient had pain BAND SEWER but has subsided now. Denies trauma and denies fall. Martha Ni MD - 06/26/2020 3:48 AM CDT EMERGENCY DEPARTMENT ENCOUNTER [facility] Patient Name: Demetrius Sarmiento Date of : 1940 80 year old Exam Room:TX1/TX1 Primary Care Physician: Jono Costello Pre- Hospital Patient Escorted by: Self [9] Mode of Arrival: EMS - Central [45] EMS Treatment Prior to ED Arrival: BAND SEWER treatment: None Chief Complaint Chief Complaint Patient presents with Back Pain chronic HPI Demetrius Sarmiento is a 80 year old male who presented to the ED for evaluation of pain to left upper back. Denies any trauma or injury. No radiation of pain. No fever/chills. No numbness/tingnling/loss of strength or sensation. Efe ANY chest pain or discomfort. No palpations. No SOB/Dyspnea. No cough or congestion. Pain is rated at 7/10, occurs when patient lies down but improves when leaning forward Past Medical History / Immunizations Past Medical History: Diagnosis Date Alzheimer disease CAD (coronary artery disease) s/p 4 stents, follows Dr. Costello Chronic back pain s/p multiple surgeries DM (diabetes mellitus) Hypertension [place] (myocardial infarction) 1994 had four stents placed Tetanus received in last 5 years: Yes Childhood immunizations: Up-to-date Past Surgical History Past Surgical History: Procedure Laterality Date NEPHRECTOMY renal mass NERVE STIMULATOR INSERTION Allergies No Known Allergies Social History Tobacco Use Former Smoker; Quit 1994; Smoked an average of 1 pack/day for 40 years. Smokeless Tobacco: Former user of smokeless tobacco; Quit 1994. Alcohol Use No. Drug Use No. Review of Systems Review of Systems Constitutional: Negative. Negative for activity change, appetite change, chills, diaphoresis, fatigue, fever and unexpected weight change. HENT: Negative. Eyes: Negative. Respiratory: Negative. Breasts: Negative. Cardiovascular: Negative. Negative for chest pain, palpitations and leg swelling. Gastrointestinal: Negative. Negative for abdominal distention, abdominal pain, nausea and vomiting. Genitourinary: Negative. Musculoskeletal: Positive for arthralgias, back pain and myalgias. Negative for gait problem and joint swelling. Skin: Negative. Negative for color change, rash and wound. Neurological: Negative. Psychiatric/Behavioral: Negative. Endocrine: Endocrine negative Physical Exam BP 136/80 | Pulse 98 | Temp 37.2 C (98.9 F) | Resp 18 | Wt 74.8 kg (165 lb) | SpO2 99% | BMI 25.09 kg/m Physical Exam Constitutional: General: He is not in acute distress. Appearance: Normal appearance. He is well-developed. He is not diaphoretic. HENT: Head: Normocephalic and atraumatic. Nose: Nose normal. No congestion or rhinorrhea. Eyes: General: No scleral icterus. Right eye: No discharge. Left eye: No discharge. Conjunctiva/sclera: Conjunctivae normal. Pupils: Pupils are equal, round, and reactive to light. Neck: Musculoskeletal: Normal range of motion and neck supple. Cardiovascular: Rate and Rhythm: Normal rate and regular rhythm. Heart sounds: Normal heart sounds. Pulmonary: Effort: Pulmonary effort is normal. No respiratory distress. Breath sounds: Normal breath sounds. No stridor. No wheezing, rhonchi or rales. Chest: Chest wall: No tenderness. Abdominal: General: Bowel sounds are normal. There is no distension. Palpations: Abdomen is soft. There is no mass. Tenderness: There is no abdominal tenderness. There is no guarding or rebound. Hernia: No hernia is present. Musculoskeletal: Normal range of motion. General: No swelling, tenderness or deformity. Right lower leg: No edema. Skin: General: Skin is warm and dry. Capillary Refill: Capillary refill takes less than 2 seconds. Coloration: Skin is not jaundiced or pale. Findings: No bruising or lesion. Neurological: General: No focal deficit present. Mental Status: He is alert and oriented to person, place, and time. Cranial Nerves: No cranial nerve deficit. Sensory: No sensory deficit. Motor: No weakness. Coordination: Coordination normal. Gait: Gait normal. Deep Tendon Reflexes: Reflexes normal. Psychiatric: Mood and Affect: Mood normal. Behavior: Behavior normal. Thought Content: Thought content normal. Judgment: Judgment normal. Labs No results found for this or any previous visit (from the past 24 hour(s)). Imaging [facility] Encounter on 06/26/20 CT THORACIC SPINE WO CONTRAST Narrative CT CERVICAL SPINE WO CONTRAST, CT THORACIC SPINE WO CONTRAST, CT LUMBAR SPINE WO CONTRAST HISTORY: Neck pain, initial exam COMPARISON: None TECHNIQUE: CT of the cervical, thoracic, and lumbar spine was performed with coronal and sagittal reformats obtained. FINDINGS: CERVICAL SPINE There is straightening of the cervical curvature. The vertebral bodies are normal in height. Grade 1 anterolisthesis of C7 over T1. Partial osseous fusion is seen across the C4-C7 vertebral bodies. No facet fracture or subluxation. The craniocervical junction is intact. The odontoid is unremarkable. Multilevel degenerative changes in the form of intervertebral disc space narrowing, vacuum disc phenomena, facet arthropathy, uncovertebral hypertrophy and osteophytosis is noted. The visualized cervical soft tissues and visualized lung apices are unremarkable. THORACIC SPINE A epidural stimulator enters the spinal canal at the dorsal aspect at the level of T12-L1 and terminates at the level of T8-T9. The thoracic curvature is normal. Mild anterior wedging of T8 is likely degenerative. No acute fracture. No facet fracture or subluxation. The thoracic vertebral bodies are in normal alignment. Multilevel degenerative changes in the form of intervertebral disc space narrowing, vacuum disc phenomena and osteophytosis are most prominent at T6-T7, T8-T9 and T12-L1. Posterior disc osteophyte complex at T12-L1. Right neural foraminal narrowing is most prominent at T8-T9 and T9-T10. Changes of dependent atelectasis in the visualized lungs. The lungs are otherwise clear. Descending aorta atherosclerotic calcifications. LUMBAR SPINE The lumbar curvature is unremarkable. Postsurgical changes of L3-L5 posterior spinal fusion are noted without evidence of hardware loosening. Intervertebral disc spacers are noted at L4-L5. Laminectomy changes at L3-L5. The vertebral bodies are normal in height. Grade 1 anterolisthesis of L4 over L5. Prominent Schmorl's node at the superior endplate of L2. No facet fracture or subluxation. Postprocedural changes of the left posterior iliac bone. Degenerative changes of the sacroiliac joints, left greater than right. Nonvisualization of the right kidney. Impression No acute fracture or traumatic malalignment of the cervical, thoracic, lumbar spine. Multilevel postoperative and degenerative changes as above. Preliminary Report Dictated by Resident: Artemio Goodrich CT LUMBAR SPINE WO CONTRAST Narrative CT CERVICAL SPINE WO CONTRAST, CT THORACIC SPINE WO CONTRAST, CT LUMBAR SPINE WO CONTRAST HISTORY: Neck pain, initial exam COMPARISON: None TECHNIQUE: CT of the cervical, thoracic, and lumbar spine was performed with coronal and sagittal reformats obtained. FINDINGS: CERVICAL SPINE There is straightening of the cervical curvature. The vertebral bodies are normal in height. Grade 1 anterolisthesis of C7 over T1. Partial osseous fusion is seen across the C4-C7 vertebral bodies. No facet fracture or subluxation. The craniocervical junction is intact. The odontoid is unremarkable. Multilevel degenerative changes in the form of intervertebral disc space narrowing, vacuum disc phenomena, facet arthropathy, uncovertebral hypertrophy and osteophytosis is noted. The visualized cervical soft tissues and visualized lung apices are unremarkable. THORACIC SPINE A epidural stimulator enters the spinal canal at the dorsal aspect at the level of T12-L1 and terminates at the level of T8-T9. The thoracic curvature is normal. Mild anterior wedging of T8 is likely degenerative. No acute fracture. No facet fracture or subluxation. The thoracic vertebral bodies are in normal alignment. Multilevel degenerative changes in the form of intervertebral disc space narrowing, vacuum disc phenomena and osteophytosis are most prominent at T6-T7, T8-T9 and T12-L1. Posterior disc osteophyte complex at T12-L1. Right neural foraminal narrowing is most prominent at T8-T9 and T9-T10. Changes of dependent atelectasis in the visualized lungs. The lungs are otherwise clear. Descending aorta atherosclerotic calcifications. LUMBAR SPINE The lumbar curvature is unremarkable. Postsurgical changes of L3-L5 posterior spinal fusion are noted without evidence of hardware loosening. Intervertebral disc spacers are noted at L4-L5. Laminectomy changes at L3-L5. The vertebral bodies are normal in height. Grade 1 anterolisthesis of L4 over L5. Prominent Schmorl's node at the superior endplate of L2. No facet fracture or subluxation. Postprocedural changes of the left posterior iliac bone. Degenerative changes of the sacroiliac joints, left greater than right. Nonvisualization of the right kidney. Impression No acute fracture or traumatic malalignment of the cervical, thoracic, lumbar spine. Multilevel postoperative and degenerative changes as above. Preliminary Report Dictated by Resident: Artemio Goodrich CT CERVICAL SPINE WO CONTRAST Narrative CT CERVICAL SPINE WO CONTRAST, CT THORACIC SPINE WO CONTRAST, CT LUMBAR SPINE WO CONTRAST HISTORY: Neck pain, initial exam COMPARISON: None TECHNIQUE: CT of the cervical, thoracic, and lumbar spine was performed with coronal and sagittal reformats obtained. FINDINGS: CERVICAL SPINE There is straightening of the cervical curvature. The vertebral bodies are normal in height. Grade 1 anterolisthesis of C7 over T1. Partial osseous fusion is seen across the C4-C7 vertebral bodies. No facet fracture or subluxation. The craniocervical junction is intact. The odontoid is unremarkable. Multilevel degenerative changes in the form of intervertebral disc space narrowing, vacuum disc phenomena, facet arthropathy, uncovertebral hypertrophy and osteophytosis is noted. The visualized cervical soft tissues and visualized lung apices are unremarkable. THORACIC SPINE A epidural stimulator enters the spinal canal at the dorsal aspect at the level of T12-L1 and terminates at the level of T8-T9. The thoracic curvature is normal. Mild anterior wedging of T8 is likely degenerative. No acute fracture. No facet fracture or subluxation. The thoracic vertebral bodies are in normal alignment. Multilevel degenerative changes in the form of intervertebral disc space narrowing, vacuum disc phenomena and osteophytosis are most prominent at T6-T7, T8-T9 and T12-L1. Posterior disc osteophyte complex at T12-L1. Right neural foraminal narrowing is most prominent at T8-T9 and T9-T10. Changes of dependent atelectasis in the visualized lungs. The lungs are otherwise clear. Descending aorta atherosclerotic calcifications. LUMBAR SPINE The lumbar curvature is unremarkable. Postsurgical changes of L3-L5 posterior spinal fusion are noted without evidence of hardware loosening. Intervertebral disc spacers are noted at L4-L5. Laminectomy changes at L3-L5. The vertebral bodies are normal in height. Grade 1 anterolisthesis of L4 over L5. Prominent Schmorl's node at the superior endplate of L2. No facet fracture or subluxation. Postprocedural changes of the left posterior iliac bone. Degenerative changes of the sacroiliac joints, left greater than right. Nonvisualization of the right kidney. Impression No acute fracture or traumatic malalignment of the cervical, thoracic, lumbar spine. Multilevel postoperative and degenerative changes as above. Preliminary Report Dictated by Resident: Artemio Goodrich Orders and Treatments Orders Placed This Encounter Procedures CT CERVICAL SPINE WO CONTRAST CT THORACIC SPINE WO CONTRAST CT LUMBAR SPINE WO CONTRAST Orders Placed This Encounter Medications acetaminophen-codeine (TYLENOL-CODEINE #3) 300-30 mg tablet Procedures See ED Procedure Note Notes & MDM Patient was evaluated for an emergency medical condition related to Back Pain (chronic) . Differential diagnoses considered by presenting complaints but not limited to: Cholecystitis Compression Fracture at Thoraco-Lumbar region: T-L Degenerative Disc Disease Sprain (acute) Strain (acute). Labs:were not ordered. Imaging:Ordered, and resulted, any relevant abnormalities were considered. IV fluids: Nausea / Vomiting Procedures:were not performed. EKG: An EKG was not performed. Pulse Oximetry room air 99% = Normal Assessment: History, physical exam findings, results of visit, differential diagnosis, medication regimens and plan of future care have been considered. Additional MDM may be found in the ED course. Differential diagnosis considered and final disposition made based on information gathered during evaluation and may not be completely ruled out or specifically listed. Vital signs were rechecked before final disposition and determined to be stable. Diagnosis ICD-10-CM ICD-9-CM 1. Acute upper back pain M54.9 724.5 338.19 2. Primary osteoarthritis involving multiple joints M15.0 715.09 Disposition & Follow Up ED Disposition ED Disposition Condition Comment Disch - Home Stable Patient's Medications START taking these medications ACETAMINOPHEN-CODEINE (TYLENOL-CODEINE #3) 300-30 MG TABLET Take 1 tablet by mouth every 6 (six)hours as needed for Pain (scale 7-10). Indications: acute pain CONTINUE taking these medications which have NOT CHANGED ASPIRIN 81 MG CHEWABLE TABLET Take 1 tablet by mouth daily with breakfast. FUROSEMIDE 20 MG TABLET Take 1 tablet by mouth daily. ISOSORBIDE MONONITRATE 60 MG 24 HR TABLET Take 1.5 tablets by mouth daily. START taking Modified Medications as Prescribed No medications on file STOP taking these medications No medications on file Martha Drake MD 06/26/2020 4:01 AM ACTIVE COVID-19 PANDEMIC. documented in this encounter Miscellaneous Notes ED Nurse Note - Ayana Jimenes RN - 06/26/2020 5:36 AM CDTPt given printed and verbal discharge instructions regarding acute back pain and primary osteoarthritis involving multiple joints , encouraged hydration, Prescriptions provided: Tylenol #3 Discussed Tylenol # 3 side affects and to avoid driving/operating machinery/or engaging in activities requiring alertness while taking. Pt verbalized understanding of instructions, pt awake alert oriented, resp reg unlabored, skin w/d, color appropriate for race, moves all ext well,pt encouraged to follow up with pcp Advised to seek medical attention for new/prolonged/worsening of symptoms, Symptoms improved Awake, alert oriented, resp reg unlabored, skin w/d, pt leaving wheelchaired to V, in no apparentdistress, documented in this encounter Plan of Treatment Name Type Priority Associated Diagnoses Date/Ti il CT CERVICAL SPINE WO IMAGING STAT Acute upper back nelson n 06/26/2020 4:[address] THORACIC SPINE WO IMAGING STAT Acute upper back nelson n 06/26/2020 4:[address] LUMBAR SPINE WO IMAGING STAT Acute upper back pain 06/26/2020 4:35 AM CDT CONTRAST Health Maintenance Due Date Last Done Comments EYE EXAM 1950 URINE MICROALBUMIN 1950 DTaP,Tdap,and Td Vaccines (1 - 1958 Tdap) Zoster Recombinant Vaccine 1989 (SHINGRIX) (1 of 2) Medicare Wellness Visit 2004 FOOT EXAM 01/22/2020 01/21/2019, 01/21/2019, 12/24/2018, Additional history exists INFLUENZA VACCINE (#1) 2020 09/09/2018 HgA1C 08/30/2020 02/29/2020, 01/15/2020, 09/06/2019, Additional history exists Depression Screening 11/02/2020 11/02/2019 LDL-C 03/23/2021 03/23/2020, 01/16/2020 CREATININE (SERUM) 05/24/2021 05/24/2020, 03/23/2020, 03/23/2020, Additional history exists PNEUMOCOCCAL VACCINES 65+ Completed 11/02/2016 documented as of this encounter Procedures Procedure Name Priority Date/Time Associated Diagnosis Comme nts CT THORACIC SPINE WO STAT 06/26/2020 4:35 AM Acute upper b ack pain CONTRAST CDT Procedure Note - [facility], Radia nt Results Inft User - 06/26/2020 6:[address] CERVICAL SPINE WO CONTRAST, CT THORACIC SPINE WO CONTRAST, CT LUMBAR SPINE WO CONTRAST HISTORY: Neck pain, initial exam COMPARISON: None TECHNIQUE: CT of the cervica l, thoracic, and lumbar spine was performed with coronal and sagittal re formats obtained. FINDINGS: CERVICAL SPINE There is straightening of th e cervical curvature. The vertebral bodies are normal in height. Grade 1 an terolisthesis of C7 over T1. Partial osseous fusion is seen across the C4 -C7 vertebral bodies. No facet fracture or subluxation. The craniocervi birdie junction is intact. The odontoid is unremarkable. Multilevel deg enerative changes in the form of intervertebral disc space narrowing, vacuum disc phenomena, facet arthropathy, uncinate hypertrophy and osteophytosi s is noted. The visualized cervical soft tissues and visualized lung apices are unremarkable. THORACIC SPINE A epidural stimulator enters the spinal canal at the dorsal aspect at the level of T12-L1 and terminat es at the level of T8-T9. The thoracic curvature is no rmal. Mild anterior wedging of T8 is likely degenerative. No acute fract ure. No facet fracture or subluxation. The thoracic vertebral bodies ar e in normal alignment. Multilevel degenerative changes in the form of inter vertebral disc space narrowing, vacuum disc phenomena and osteophytosis are most prominent at T6-T7, T8-T9 and T12-L1. Posterior disc osteophyte co mplex at T12-L1. Right neural foraminal narrowing is most prominent at T8-T9 and T9-T10. Changes of dependent atelect asis in the visualized lungs. The lungs are otherwise clear. Descending aorta atherosclerotic calcifications. LUMBAR SPINE The lumbar curvature is unre markable. Postsurgical changes of L3-L5 posterior spinal fusion are noted without evidence of hardware loosening. Intervertebral disc spacers are noted at L4-L5. Laminectomy changes at L3-L5. The vertebral bodies are normal in height. Grade 1 anterolisthesis of L4 over L5. Prominent Laureen morl's node at the superior endplate of L2. No facet fracture or subluxa tion. Postprocedural changes of th e left posterior iliac bone. Degenerative changes of the sacroiliac josé ints, left greater than right. Nonvisualization of the righ t kidney. IMPRESSION No acute fracture or traumat ic malalignment of the cervical, thoracic, lumbar spine. Multilevel postoperative and degenerative changes as above. Preliminary Report Dictated by Resident: Artemio Goodrich CT LUMBAR SPINE WO CONTRAST STAT 06/26/2020 4:35 AM CDT Ac [place] upper back pain Procedure Note - [facility], Radia nt Results Inft User - 06/26/2020 6:[address] CERVICAL SPINE WO CONTRAST, CT THORACIC SPINE WO CONTRAST, CT LUMBAR SPINE WO CONTRAST HISTORY: Neck pain, initial exam COMPARISON: None TECHNIQUE: CT of the cervica l, thoracic, and lumbar spine was performed with coronal and sagittal re formats obtained. FINDINGS: CERVICAL SPINE There is straightening of th e cervical curvature. The vertebral bodies are normal in height. Grade 1 an terolisthesis of C7 over T1. Partial osseous fusion is seen across the C4 -C7 vertebral bodies. No facet fracture or subluxation. The craniocervi birdie junction is intact. The odontoid is unremarkable. Multilevel deg enerative changes in the form of intervertebral disc space narrowing, vacuum disc phenomena, facet arthropathy, uncinate hypertrophy and osteophytosi s is noted. The visualized cervical soft tissues and visualized lung apices are unremarkable. THORACIC SPINE A epidural stimulator enters the spinal canal at the dorsal aspect at the level of T12-L1 and terminat es at the level of T8-T9. The thoracic curvature is no rmal. Mild anterior wedging of T8 is likely degenerative. No acute fract ure. No facet fracture or subluxation. The thoracic vertebral bodies ar e in normal alignment. Multilevel degenerative changes in the form of inter vertebral disc space narrowing, vacuum disc phenomena and osteophytosis are most prominent at T6-T7, T8-T9 and T12-L1. Posterior disc osteophyte co mplex at T12-L1. Right neural foraminal narrowing is most prominent at T8-T9 and T9-T10. Changes of dependent atelect asis in the visualized lungs. The lungs are otherwise clear. Descending aorta atherosclerotic calcifications. LUMBAR SPINE The lumbar curvature is unre markable. Postsurgical changes of L3-L5 posterior spinal fusion are noted without evidence of hardware loosening. Intervertebral disc spacers are noted at L4-L5. Laminectomy changes at L3-L5. The vertebral bodies are normal in height. Grade 1 anterolisthesis of L4 over L5. Prominent Laureen morl's node at the superior endplate of L2. No facet fracture or subluxa tion. Postprocedural changes of th e left posterior iliac bone. Degenerative changes of the sacroiliac josé ints, left greater than right. Nonvisualization of the righ t kidney. IMPRESSION No acute fracture or traumat ic malalignment of the cervical, thoracic, lumbar spine. Multilevel postoperative and degenerative changes as above. Preliminary Report Dictated by Resident: Artemio Goodrich CT CERVICAL SPINE WO CONTRAST STAT 06/26/2020 4:35 A M CDT Acute upper back pain Procedure Note - [facility], Radia nt Results Inft User - 06/26/2020 6:[address] CERVICAL SPINE WO CONTRAST, CT THORACIC SPINE WO CONTRAST, CT LUMBAR SPINE WO CONTRAST HISTORY: Neck pain, initial exam COMPARISON: None TECHNIQUE: CT of the cervica l, thoracic, and lumbar spine was performed with coronal and sagittal re formats obtained. FINDINGS: CERVICAL SPINE There is straightening of th e cervical curvature. The vertebral bodies are normal in height. Grade 1 an terolisthesis of C7 over T1. Partial osseous fusion is seen across the C4 -C7 vertebral bodies. No facet fracture or subluxation. The craniocervi birdie junction is intact. The odontoid is unremarkable. Multilevel deg enerative changes in the form of intervertebral disc space narrowing, vacuum disc phenomena, facet arthropathy, uncinate hypertrophy and osteophytosi s is noted. The visualized cervical soft tissues and visualized lung apices are unremarkable. THORACIC SPINE A epidural stimulator enters the spinal canal at the dorsal aspect at the level of T12-L1 and terminat es at the level of T8-T9. The thoracic curvature is no rmal. Mild anterior wedging of T8 is likely degenerative. No acute fract ure. No facet fracture or subluxation. The thoracic vertebral bodies ar e in normal alignment. Multilevel degenerative changes in the form of inter vertebral disc space narrowing, vacuum disc phenomena and osteophytosis are most prominent at T6-T7, T8-T9 and T12-L1. Posterior disc osteophyte co mplex at T12-L1. Right neural foraminal narrowing is most prominent at T8-T9 and T9-T10. Changes of dependent atelect asis in the visualized lungs. The lungs are otherwise clear. Descending aorta atherosclerotic calcifications. LUMBAR SPINE The lumbar curvature is unre markable. Postsurgical changes of L3-L5 posterior spinal fusion are noted without evidence of hardware loosening. Intervertebral disc spacers are noted at L4-L5. Laminectomy changes at L3-L5. The vertebral bodies are normal in height. Grade 1 anterolisthesis of L4 over L5. Prominent Laureen morl's node at the superior endplate of L2. No facet fracture or subluxa tion. Postprocedural changes of th e left posterior iliac bone. Degenerative changes of the sacroiliac josé ints, left greater than right. Nonvisualization of the righ t kidney. IMPRESSION No acute fracture or traumat ic malalignment of the cervical, thoracic, lumbar spine. Multilevel postoperative and degenerative changes as above. Preliminary Report Dictated by Resident: Artemio Goodrich documented in this encounter Results Not on filedocumented in this encounter Visit Diagnoses Diagnosis Acute upper back pain - Primary Pain in thoracic spine Primary osteoarthritis involving multipl e joints documented in this encounter Insurance Payer Benefit Plan / Subscriber ID Effective Phone Address T [facility] Group [facility] [id number] 2019-Pres [facility] - HEALTHCARE ent Adv HM O MANAGED DUAL COMPLETE MEDICARE HMO [facility] MEDICAID OF [id number] 2018-Pres [phone] [address] [facility] ent [phone] [place] [address] documented as of this encounter
--- OUTSIDE RECORDS SUMMARY | 2020-07-13 07:40 | XMS REPORT | Continuity of Care Document ---
:1940 Author Organization [facility] t Address [address] [place] [address] Care Team Providers Name Role Phone Trang WOOTEN Primary Care Physician Vidal WOOTEN, S Attending Clinician Umang WOOTEN Attending Clinician Charisma WOOTEN, T Attending Clinician Ariel STONER Attending Clinician Mars WOOTEN, O. Attending Clinician Trang WOOTEN Attending Clinician Payers Payer Name Policy Type Policy Number Effective Date Expiration Date S brian MEDICAIDMEDICAIDx xxxxxxxxx 2016 [place] [id number] 00:00:[address] -PresentMedicaid UHC MEDICAREUHC xxxxxxxxx 2019 [place] DUAL COMPLETE 00:00:00 [facility] [id number]-PresentHMO Problems Condition Condition Condition Status Onset Resolution Last Treating Co mments Source Name Details Category Date Date Treatment Clinician Date Chest pain Chest pain Disease Active 2018-11 [place] 11-24 Methodi 00:00: st 00 CHF CHF Disease Active [place] exacerbati exacerbati - Me thodi on on 00:00: st 00 Essential Essential Disease Active Halina ston hypertensi hypertensi 12-13 Me [place] on on 00:00: st 00 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 12-13 Method i mellitus mellitus 00:00: st 00 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 4-10 Me thodi athy athy 00:00: st associated associated 00 with type with type 2 diabetes 2 diabetes mellitus mellitus Late onset Late onset Disease Active [place] Alzheimer' Alzheimer' 01-12 Me thodi s disease s disease 00:00: st with with 00 behavioral behavioral disturbanc disturbanc e e 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 Routine Routine Problem Active [facility] On home On home Problem Active [facility] oxygen oxygen [facility] therapy therapy [facility] Coronary Coronary Problem Active [facility] artery artery [facility] - disease disease Memoria involving involving l [place] Outpati coronary coronary ent artery of artery of Clin ics iroquois iroquois heart, heart, angina angina presence presence unspecifie unspecifie d d S/P S/P Problem Active [facility] coronary coronary [facility] - artery artery Memoria stent stent l placement placement Outp ati ent Clinics 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 Luke s - diabetes diabetes Memori a mellitus mellitus l with with Outpati hyperglyce hyperglyce en t [facility] Need for Need for Problem Active [facility] dental dental [facility] Clin[facility] History of History of Problem Active [facility] prostate prostate [facility] cancer cancer Memoria l [facility] Alzheimer Alzheimer Problem Active [facility] disease disease [facility] Diabetes Diabetes Problem [facility] Heart Heart Problem Active [facility] disease disease [facility] Heart Heart Problem Active [facility] attack attack [facility] Blurry Blurry Problem Active [facility] vision, vision, [facility] - bilateral bilateral Manjit greg l [facility] ent [facility] Chronic Chronic Problem Active [facility] pain pain [facility] - syndrome syndrome Memori a l [facility] ent [facility] Allergies, Adverse Reactions, Alerts This patient has no known allergies or adverse reactions. Family History Family Member Diagnosis Comments Start Date Stop Date Source Natural father Heart disease Mathias [facility] Natural father Seizures [facility] Natural mother Alzheimer's disease [place] [facility] Natural mother Cancer [facility] Social History Social Habit Start Date Stop Date Quantity Comments Source History of tobacco Current smoker Jim Patel use Sex Assigned At [facility] ethodist Cigarettes smoked 2019-09-27 2019-09-27 [place] [facility] current (pack per 00:00:00 00:00:00 day) - Reported Alcohol intake 2019-09-27 2019-09-27 Current [facility] thodist 00:00:00 00:00:00 non-drinker of alcohol (finding) Smoking Status Start Date Stop Date Source Former smoker 2019-09-27 00:00:00 2019-09-27 00:00:00 Stew Patel Medications Ordered Filled Start Stop Current Ordering Indication Dosage Frequency Signature Comments Components Source Medication Medication Date Date Medication? Clinician (SIG) Name Name furosemide 2018-11 2019- No 40mg QD Take 40 mg Mathias (LASIX) 40 -13 by mouth Meth mercedes mg tablet 11:14: 00:[address] 15 :00 multivitami 2018-11 Yes 1{tbl} QD Take 1 [place] 1-13 tablet by Marina (THERAGRAN) 11:14: mouth st tablet 11 nightly. traMADol 2018-11 Yes 50mg Take 50 mg Halina stokvng (ULTRAM) 50 -13 by mouth. Met hodi mg tablet 11:14: st 11 aspirin 2018- Yes 81mg QD Take 81 mg [place] (ECOTRIN) 1-13 by mouth Method i 81 MG 11:14: daily. st enteric 11 coated tablet atorvastati 2018-11 Yes 40mg QD Take 40 mg Mathias n (LIPITOR) 1-13 by mouth Meth mercedes 40 MG 11:14: nightly. st tablet 11 insulin 2018-11 Yes 30U QD Inject 30 [place] GLARGINE 1-13 Units Methodi (LANTUS) 11:14: under the st 100 unit/mL 11 skin injection nightly. (vial) isosorbide 2018-11 Yes 60mg QD Take 60 mg [place] mononitrate -13 by mouth Meth mercedes (IMDUR) 60 11:14: daily. st MG 24 hr 11 tablet potassium 2018-11 Yes 10meq QD Take 10 [place] chloride 1-13 mEq by Methodi (K-DUR) 10 11:14: mouth st MEQ CR 11 daily. tablet glimepiride 2018-11- No 1mg QD Take 1 mg Mathias (AMARYL) 1 11-28 by mouth Meth mercedes MG tablet 09:13: 00:[address] 40 :00 multivitami 2018-11 Yes 1{tbl} QD Take 1 [place] 1-13 tablet by Methodi (THERAGRAN) 00:00: mouth st tablet 00 nightly. aspirin 2018-11- No 81mg QD Take 1 Mathias (ECOTRIN) - 02-11 tablet (81 Met hodi 81 MG 00:00: 23:59 mg total) st enteric 00 :00 by mouth coated daily for tablet 90 days. atorvastati 2018-11 2019- No 40mg QD Take 1 Halina ston n (LIPITOR) 11-28 12-13 tablet (40 M ethodi 40 MG 00:00: 23:59 mg total) st tablet 00 :00 by mouth nightly for 30 days. docusate 2018-11 2019- No 100mg Q.5D Take 1 [place] sodium 11-28-13 capsule Methodi (COLACE) 00:00: 23:59 ([address] 100 MG 00 :00 total) by capsule mouth 2 (two) times a day for 30 days. insulin 2018-11- No 30U QD Inject 30 [place] GLARGINE 11-28 12-13 Units Methodi (LANTUS) 00:00: 23:[address] 100 unit/mL 00 :00 skin injection nightly (vial) for 30 days. insulin 2018-11- No 4U Q.[id number] Inject 4 [place] lispro 11-28 [id number] Units Metho di (HumaLOG) 00:00: 23:[address] 100 unit/mL 00 :00 skin 3 injection (three) times a day with meals for 30 days. ipratropium 2018-11- No 3mL Q.[id number] Take 3 mL [place] -albuterol 11-28 [id number] by Me thodi (DUO-NEB) 00:00: 23:59 3D nebulizati s t 0.5-2.5 00 :00 on every 6 mg/3 mL (six) nebulizer hours while awake for 30 days. isosorbide 2018-11- No 60mg QD Take 1 [place] mononitrate 11-28 tablet (60 M ethodi (IMDUR) 60 00:00: 23:59 mg total) s t MG 24 hr 00 :00 by mouth tablet daily for 30 days. Lactobacill 2018-11- No 1{tbl} Q.[id number] Take 1 [place] us 11-28 [id number] tablet by Met concepcion acidoph-L.b 00:00: 23:[address] ulgar 00 :00 (three) (FLORANEX) times a 1 million day for 30 cell tablet days. lisinopril 2018-11- No 5mg QD Take 1 [place] (PRINIVIL) 11-28 tablet (5 Met hodi 5 mg tablet 00:00: 23:59 mg total) st 00 :00 by mouth daily for 30 days. metoprolol 2018-11- No 12.5mg Q.5D Take 0.5 [place] tartrate 11-28 tablets Methodi (LOPRESSOR) 00:00: 23:59 (12.5 mg s t 25 mg 00 :00 total) by tablet mouth 2 (two) times a day for 30 days. spironolact 2018-11- No 12.5mg QD Take 0.5 [place] one 11-28 tablets Methodi (ALDACTONE) 00:00: 23:59 (12.5 mg s t 25 MG 00 :00 total) by tablet mouth daily for 30 days. furosemide 2018-11- No 40mg Q.5D Take 1 [place] (LASIX) 40 11-28 12-13 tablet (40 Me thodi mg tablet 00:00: 23:59 mg total) st 00 :00 by mouth 2 (two) times a day for 30 days. potassium 2018-11- No 20meq QD Take 2 [place] chloride -13 12-13 capsules Method i (MICRO-K) 00:00: 23:59 ([address] 10 MEQ CR 00 :00 total) by capsule mouth daily for 30 days. amoxicillin 2018-11- No 500mg Q.5D Take 1 [place] -pot 11-28-17 tablet Methodi clavulanate 00:00: 23:59 ([address] (AUGMENTIN) 00 :00 total) by 500-125 mg mouth 2 per tablet (two) times a day for 4 days. potassium 2018-11- No 20meq Q.5D Take 2 [place] chloride - 11-13 capsules Method i (MICRO-K) 00:00: 00:00 ([address] 10 MEQ CR 00 :00 total) by capsule mouth 2 (two) times a day for 30 days. pregabalin 2019- No 150mg Q.[id number] Take 1 Mathias (LYRICA) 6-20 06-19 [id number] capsule M ethodi 150 MG 00:00: 23:59 3D ([address] capsule 00 :00 total) by mouth 3 (three) times a day. NAMZARIC Yes TAKE 1 Mathias 28-10 mg 6-13 CAPSULE BY Metho di capsule,spr 00:00: MOUTH ONCE st inkle,ER 00 DAILY 24hr OLANZapine Yes TAKE 1 [place] (ZYPREXA) 5-06 TABLET BY Metho di 2.5 MG 00:00: MOUTH ONCE st tablet 00 DAILY AT NIGHT acetaminoph 2020- No 1{tbl} Q8H Take 1 [place] en-codeine 1-02 01-02 tablet by Met concepcion (TYLENOL 00:00: 23:[address] WITH 00 :00 every 8 CODEINE #3) (eight) 300-30 mg hours as per tablet needed for moderate pain. Potassium Potassium Yes Anneliese [address] [facility] Chloride Chloride [place] with food [facility] Tylenol # 3 Tylenol # 3 Yes Anneliese one tab [facility] Vitamin D-3 Vitamin D-3 Yes Anneliese [address] [facility] Humalog Humalog Yes Anneliese as [facility] Mill[facility] directed [facility] Aspir-Low Aspir-Low Yes Anneliese [address] [facility] Namzaric Namzaric Yes Anneliese [address] [facility] Zyprexa Zyprexa Yes Anneliese [address] [facility] Vitamin B-1 Vitamin B-1 Yes Anneliese [address] [facility] Multivitami Multivitami Yes Anneliese as [facility] n n [place] directed [facility] Lantus Lantus Yes Anneliese as [facility] directed [facility] Lasix Lasix Yes Anneliese [address] [facility] Isosorbide Isosorbide Yes Anneliese [address] [facility] Mononitrate Mononitrate [place] in the [facility] Lyrica Lyrica Yes Anneliese 1 capsule [facility] Vital Signs Vital Name Observation Time Observation Value Comments Source Heart rate 2019-09-28 08:07:00 84 /min Stew Patel Respiratory rate 2019-09-28 08:07:00 18 /min Johnnie Patel Oxygen saturation in 2019-09-28 08:04:00 96 /min Stew Patel Arterial blood by Pulse oximetry Systolic blood 2019-09-28 07:41:28 109 mm[Hg] Ari Patel pressure Diastolic blood 2019-09-28 07:41:28 71 mm[Hg] Kezia Patel pressure Body temperature 2019-09-28 07:41:28 36.28 Priyanka Johnnie Patel Body weight 2019-09-28 04:53:03 79.243 kg Stew Patel BMI 2019-09-28 04:53:03 27.36 kg/m2 Stew Patel Body height 2019-09-27 14:32:00 170.2 cm Stew Patel Procedures Procedure Date / Time Performing Clinician Source Performed POC GLUCOSE 2019-09-28 07:42:00 Jayson Aguilar HC COMPLETE BLD COUNT 2019-09-28 04:45:00 Jayson Aguilar W/AUTO DIFF BASIC METABOLIC PANEL 2019-09-28 00:00:00 Jayson Aguilar ESTIMATED GFR 2019-09-28 00:00:00 Jayson Aguilar POC GLUCOSE 2019-09-27 21:34:00 Jayson gAuilar CV STRESS TEST NUCLEAR 2019-09-27 17:37:43 Jono Prieto CARDIO NM MYOCARDIAL PERFUSION 2019-09-27 17:37:43 Jono Prieto IMAGING W TL-201 VIABILITY POC GLUCOSE 2019-09-27 17:03:00 Jayson Aguilar POC GLUCOSE 2019-09-27 12:00:00 Jayson Aguilar POC GLUCOSE 2019-09-27 08:55:00 Jayson Aguilar POC GLUCOSE 2019-09-26 20:20:00 Jayson Aguilar ACTIVATED CLOTTING TIME 2019-09-26 17:40:00 Jayson Aguilar POC GLUCOSE 2019-09-26 17:20:00 Jayson Aguilar ACTIVATED CLOTTING TIME 2019-09-26 17:16:00 Jayson Aguilar CV SELECTIVE CORONARY 2019-09-26 16:54:09 Jono Prieto ANGIOGRAPHY CV LEFT HEART CATH 2019-09-26 16:54:09 Jono Prieto ethodist CV UNLISTED PRODUCTION SUPPORT ANALYST 2019-09-26 16:54:09 Jono Prieto PROCEDURE ACTIVATED CLOTTING TIME 2019-09-26 16:51:00 Jayson Aguilar ACTIVATED CLOTTING TIME 2019-09-26 16:42:00 Jayson Aguilar ACTIVATED CLOTTING TIME 2019-09-26 16:30:00 Jayson Aguilar POC GLUCOSE 2019-09-26 13:33:00 Jayson Aguilar TTE COMPLETE, WO CONTRAST, 2019-09-26 11:36:36 Jono Prieto W DOPPLER ([id number]) POC GLUCOSE 2019-09-26 08:13:00 Jayson Aguilar ANTI XA, UNFRACTIONATED 2019-09-26 06:30:00 Jayson Aguilar BASIC METABOLIC PANEL 2019-09-26 04:00:00 James Acosta n Adventism MAGNESIUM LEVEL 2019-09-26 04:00:00 James Acosta Meth odist ESTIMATED GFR 2019-09-26 04:00:00 Jayson Aguilar POC GLUCOSE 2019-09-25 20:45:00 Jayson Aguilar POC GLUCOSE 2019-09-25 17:15:00 Jayson Aguilar ANTI XA, UNFRACTIONATED 2019-09-25 14:39:00 Jayson Aguilar TROPONIN 2019-09-25 14:39:00 James Acosta Meth odist MAGNESIUM LEVEL 2019-09-25 14:39:00 Jayson Aguilar POTASSIUM LEVEL 2019-09-25 14:39:00 Jayson Aguilar XR CHEST 1 VW PORTABLE 2019-09-25 09:41:00 James Acosta on [facility]ism POC GLUCOSE 2019-09-25 09:03:[address] HEAD WO CONTRAST 2019-09-25 08:50:47 Jayson Aguilar ARTERIAL BLOOD GAS 2019-09-25 08:30:00 James Acosta M ethodist POC GLUCOSE 2019-09-25 08:01:00 Jayson Aguilar POC GLUCOSE 2019-09-25 07:27:00 Jayson Aguilar HC COMPLETE BLD COUNT 2019-09-25 06:20:00 Jayson Aguilar W/AUTO DIFF BASIC METABOLIC PANEL 2019-09-25 06:20:00 Jayson Aguilar THYROID STIMULATING 2019-09-25 06:20:00 Jayson Aguilar HORMONE ESTIMATED GFR 2019-09-25 06:20:00 Jayson Aguilar ANTI XA, UNFRACTIONATED 2019-09-25 06:20:00 Jayson Aguilar PARTIAL THROMBOPLASTIN 2019-09-25 06:20:00 Jayson Aguilar TIME (PTT) TROPONIN 2019-09-25 06:20:00 Jayson Aguilar MAGNESIUM LEVEL 2019-09-25 06:20:00 Jayson Aguilar POC GLUCOSE 2019-09-24 21:30:00 Jayson Aguilar CBC HEMOGRAM 2019-09-24 21:10:00 Jayson Aguilar PARTIAL THROMBOPLASTIN 2019-09-24 21:00:00 Jayson Aguilar TIME (PTT) ANTI XA, UNFRACTIONATED 2019-09-24 21:00:00 Jayson Aguilar PROTHROMBIN TIME WITH INR 2019-09-24 21:00:00 Jayson Aguilar TROPONIN 2019-09-24 21:00:00 Jayson Aguilar LIPID PANEL 2019-09-24 21:00:00 Jayson Aguilar T4, FREE 2019-09-24 21:00:00 Jayson Aguilar Plan of Care Planned Activity Planned Date Details Comments Source Future Scheduled 2020-08-16 INFLUENZA VACCINE [place] [facility] Test 00:00:00 [code = INFLUENZA VACCINE] Future Scheduled 2004 65+ PNEUMOCOCCAL [place] [facility] Test 00:00:00 VACCINE (2 of 2 - PPSV23) [code = 65+ PNEUMOCOCCAL VACCINE (2 of 2 - PPSV23)] Future Scheduled 1989 SHINGLES VACCINES (#1) [place] [facility] Test 00:00:00 [code = SHINGLES VACCINES (#1)] Future Scheduled 1949 DIABETIC FOOT EXAM [place] [facility] Test 00:00:00 [code = DIABETIC FOOT EXAM] Future Scheduled 1940 DIABETIC RETINAL EYE Halina jenniffer [facility] Test 00:00:00 EXAM [code = DIABETIC RETINAL EYE EXAM] Encounters Start End Encounter Admission Attending Care Care Encounter Source Date/Time Date/Time Type Type Clinicians Facility Department ID 2020-06-26 2020-06-26 [facility] [id number] 03:50:00 06:45:00 Martha Cortez [id number] [place] [id number] [place] [id number] 2020-05-24 2020-05-24 Emergency Heck, [facility] [id number] 06:40:47 10:54:00 Charanjit Cortez [id number] [place] 4.2.7.2.686 [place] [id number] 2020-03-29 2020-03-29 Letter Jamel Zafar [id number] 00:00:00 00:00:00 (Out) Justina Sotelo [id number] [facility] [id number] 2020-03-26 2020-03-26 Transition Sharee George [id number] 00:00:00 00:00:00 of Care Sherrell Trent [id number] [place] 4.2.7.2.686 [id number] 2019-10-07 2019-10-07 [facility] [id number] [address] 10:48:00 10:48:00 [facility] 2019-10-05 2019-10-05 [facility] [id number] 16:06:00 16:06:00 [facility] 2019-07-12 2019-07-12 [facility] [id number] 16:24:00 16:24:00 [facility] 2019-07-06 2019-07-06 [facility] [id number] 14:00:00 14:00:00 [facility] Medicine [facility] ent Clinics Results Test Description Test Time Test Comments Results Result Comments Source POC glucose 2019-09-28 07:44:37 Test Item Value Reference Range Interpretation Comme nts POC glucose (test code = 219 mg/dL 65-99 H [facility] Notified RNMeter ID: [id number]) [id number] tor: Madonna Proctor Lab Interpretation (test code = Abnormal 02510-4) [facility] [id number] 05:58:14 Test Item Value Reference Range Interpretation Comments Sodium (test code = 2951-2) 136 135- 148 mEq/L Potassium (test code = 2823-3) 4.4 3.5- 5.0 mEq/L Chloride (test code = 2075-0) 99 98- 112 mEq/L CO2 (test code = 8-9) 22 24- 31 mEq/L L Anion gap (test code = 34768-6) 15@ANIO 7- 15 mEq/L BUN (test code = 3094-0) 21 mg/dL 8-23 Creatinine (test code = 2160-0) 1.64 mg/dL 0.7-1.2 H Glucose (test code = 2345-7) 258 mg/dL 65-99 H Calcium (test code = 35564-4) 9.8 mg/dL 8.8-10.2 Lab Interpretation (test code = Abnormal 45860-1) [place] [facility] [id number] 05:58:14 Test Item Value Reference Range Interpretation Comments Estimated GFR (test 39 mL/min/1.73 m2 Adela ferrer Units code = 5488) InterpretationG 1 >=90 Naty l or highG2 60-89 Mildly decrease dG3a 45-59 Mil dly to moderately decr ncrksK9o 30-44 Moderately to s everely decreasedG4 15-29 Severe ly decreasedG5 <15 Kidney charly lureThe eGFR was calcul ated using the Chron Kidney Disease Epidemiology Collaboration ( CKD-EPI) equation. Interpretation is based on recommendati ons of the National Ki dney Foundation-Kidn ey Disease Outcome s Quality Initiat stefany (NKF-KDOQI) pub lished in 2013. Lab Interpretation Abnormal (test code = 74791-5) [place] [facility] with platelet and [id number] 05:28:13 Test Item Value Reference Range Interpretation Comments WBC (test code = 26010-7) 7.11 4.50- 11.00 k/uL RBC (test code = 49485-8) 4.17 m/uL 4.4-6 L HGB (test code = 718-7) 12.5 g/dL 14-18 L HCT (test code = 4544-3) 37.1 % 41-51 L MCV (test code = 787-2) 89.0 fL 82-100 MCH (test code = 785-6) 30.0 pg 27-34 MCHC (test code = 786-4) 33.7 g/dL 31-37 RDW - SD (test code = 44.6 fL 37-55 91613-0) MPV (test code = 17644-2) 11.3 fL 8.8-13.2 Platelet count (test code 167 150- 400 k/uL = 76263-9) Nucleated RBC (test code 0.00 /100 WBC = 55375-6) Neutrophils (test code = 67.8 % 39-69 36057-0) Lymphocytes (test code = 18.8 % 25-45 L 72402-5) Monocytes (test code = 9.6 % 0-10 70221-9) Eosinophils (test code = 3.1 % 0-5 50438-1) Basophils (test code = 0.4 % 0-1 39743-1) Immature granulocytes 0.3 % 0-1 "Immat ure (test code = 28184-7) granul ocytes" (promyelocytes, myelocytes, metamyelocytes) Lab Interpretation (test Abnormal code = 91928-7) [facility] myocardial perfusion imaging w tl-201 [id number] 18:18:00Interface, Radiology Results In - 09/27/2019 6:18 PM [facility] Nuclear Cardiology and Cardiac CT [address] [place] [address] Myocardial Perfusion Imaging Report Stress ECG tracings are available in [employer] and [employer] Web All ECG interpretations are included in this reportPat.Name: TINY SARMIENTO.ID: [id number] .Date: 09/27/2019 Refer.MD: JAYSON AGUILAR MDExam Time: 10:43:00 AM Study Type:Myocardial Perfusion ImagingHeight: 67inDOB Age: 6 1940,79Y Sex: MALE BP: 119/73 HR: 98 bpm Nuclear Tech:Tsigereda Bitewlign, [facility], [place]/Peyman Dumont [facility]. Stat.:Inpatient Nuclear Event ID:[id number] Order ID: [id number] Reason for Study:CAD, unspecified* History / Clinical:Congestive heart failure, Coronary artery disease,Coronary artery stent, Diabetes, Hyperlipidemia, Hypertension, Asthma,Dementia, Depression, Prostate Cancer, NeuropathyProcedures: Single Day Rest / Stress, ViabilityClinical Symptoms:Regadenoson SUMMARY: SCINTIGRAPHIC RESULTSPerfusion Defect Size (% LV) 45% Total 0% Ischemia 45% ScarLeft Ventricular Perfusion ResultsThere is a large, severe apical, apical anterior and apical septal apical perfusion defect during stress which remains unchanged withrest and redistribution imaging. There is a large, moderate severitybasal and mid inferior, infero-septal perfusion defect during stresswhich remains unchanged with restand redistribution imaging. Gated SPECT ResultsThe post stress left ventricular ejection fraction is22% withakinesis of all hypoperfused taylor . Left ventricular end-diastolicvolume is 271 ml; end-systolic volume is 211 ml. The left ventricleis severely enlarged at stress and restConclusionAbnormal regadenoson Tc-99m tetrofosmin/rest and redistributionthallium-201 myocardial perfusion study compatible with scar in themid to distal left anterior descending and subendocardial scar in theright coronary artery vascular territory. The LVEF is severelydepressed. The diagonal and LCX territories areviable., as well asthe proximal and mid anterior wall. No evidence of ischemia.CommentsThe study results indicate a high (>2%) annual risk for a cardiacdeath or non-fatal myocardial infarction. Study Quality/ArtifactsThe study quality is good. Comparison to Previous StudyNone available. --------- FINDINGS: STRESS: Baseline Vital Signs: Intervention Regadenoson 0.4mg/5mlIV over 10 seconds followed by radiotracer injection and 5ml salineflushBaseline EKG Normal Sinus Rhythm, Nonspecific T wave abnormityHeart Rate: 98 Atropine Administered: 0Rest BP: 119/73 Stress Test Results:Target HR: 119 Symptoms and Complications:Stress-induced Arrhythmias NoneReason for Stopping Test: CADSymptoms During Test DizzinessComplications NoneECG / Stress Interpretation: No ischemic ST segment change occurredwith stress.Signed 09/27/2019 06:18 PMButch Caldwell Methodist[facility] stress [id number] 15:36:23 Test Item Value Reference Range Interpretation Comments Resting HR (test code 95 = 0142583099) Resting BP (test code 119 = 9641102270) Peak MET Achieved 1.0 (test code = 2493803833) Protocol Name (test REGADENO code = 1029423191) Time in Exercise 00:01:00 Phase (test code = 0824074017) Max Systolic BP (test 119 code = 3431202667) Max Diastolic BP 73 (test code = 1820473933) Max Heart Rate (test 103 code = 8504646797) Max Predicted Heart 140 Rate (test code = 5430812799) Target HR Formula (220 - Age)*100% (test code = 3103162883) Test Indication (test CAD code = 6061081395) Stress Test -Waveform interpreted in Impression (test code report associated with = 3889356576) image study. No interpretation is provided as part of this Stress ECG report.- Target HR (test code 140.00 bpm = 8588632842) [facility] lab [id number] 08:34:27CARDIAC CATHETERIZATION PROCEDURE NOTE PROCEDURES PERFORMED 1. Left Heart Catheterization (LHC)2. Selective Coronary Angiography (SCA)3. LV pressures without ventriculogram. PRIMARY OPERATORMorona Prieto, Purification Operator FIRST ASSISTANTJoleen Borrego ANESTHESIA USEDLocal 2% lidocaine, Conscious Sedation DESCRIPTION OF PROCEDUREThe procedure was described to the patient including benefits, risks, and alternatives to the procedure. The patient confirmed understanding and signed the informed consent. The patient was brought to laboratory chemist, room [facility] of [facility]. Patient wasprepped and draped in sterile fashion. Conscious sedation provided to patient throughout procedure with appropriate monitoring. The right common femoral artery (STATEMENT DISTRIBUTION CLERK) was palpated and the region above the artery was anesthetized with 2% local lidocaine. Using micropuncture technique and fluoroscopic guidance, arterial access was obtained in the right STATEMENT DISTRIBUTION CLERK and a 4F sheath was placed without difficulty.A 4F diagnostic JL4 was advanced over a J-tipped wire to the ascending aorta. The J wire was removed, the catheter aspirated to ensure no air was in the system and flushed in the usual fashion. The diagnostic catheter engaged the left main coronary artery without difficulty. Angiograms of the left coronary system were taken in several various orthogonal angles. The diagnostic catheter used for the left coronary was subsequently removed and a 4F diagnostic 3DRC was advanced over a J-tipped wire to the ascending aorta.The J wire was removed, the catheter aspirated to ensure no air was in the system and flushed in the usual fashion. The diagnostic catheter engaged the right coronary artery without difficulty. Angiograms of the right coronary system were taken in several various orthogonal angles. The diagnostic catheter used for the right coronary was subsequently removed and a 4F pigtail catheter was advanced over the wire and guided into the left ventricle. The J wire was removed, the catheter aspirated to ensure no air was in the system and flushed in the usual fashion. LVEDP of 40mmHg was measured. The catheter was then pulled back across the aortic valve and there was not a gradient across the valve. The pigtail catheter was then removed. CORONARY ANGIOGRAM FINDINGS:LAD 65 % Stenosis proximal to prior stent LCx Diffuse non-significant stenosis RCA 50-60 % Stenosis in the proximal and mid segments of a diffusely disease vessel Attending: Dr. Jono Prieto Interventional Fellow: Joleen Borrego EQUIPMENT/ANTICOAGULATION: Right Common Femoral [id number] Sheath XB LAD 3.5 and 3DRC Guide Catheter Verrata Wire coronary wire Anticoagulation: Heparin with ACT >250 sec prior to procedure PROCEDURAL DETAILS: The LMT was engaged with the XB LAD 3.5 Guide Catheter and a Verrata Wire coronary wire was advanced into the distal LAD. The lesion in the proximal LAD wasassessed for significance with iFR. Values of 0.80 were obtained concerning for significant lesion. The RCA was engaged with the 3DRC Guide Catheter and aVerrata coronary wire was advanced into the distal PDA. The lesion in the proximal and mid RCA were assessed with iFR. Values of 0.94 were obtaineddetermining non-significance of the lesions. HEMOSTASIS: Manual Pressure ADDITIONAL POST-PROCEDURE MEDICATIONS: PLAN: 1. ASA 81mg daily2. Will obtain viability study to assess for scar burden in the LAD territory prior to planning for potential PCI of proximal LAD. 3. Cardiac medical therapy and aggressive risk factor modification. Cardiac rehabilitation. 4. 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 Stat.:Inpatient Room: A746 Study Status:Final Echo Event ID:[id number] Order ID: [id number] Reason for Study:NSTEMI, CHF History / Clinical:Congestive Heart Failure, Coronary ArteryDisease,Diabetes, Dyspnea On Exertion, Hyperlipidemia, HypertensionProcedures: 2D Echo, Colorflow Doppler, Intravenous Lumason Contrast,Intravenous Definity Contrast, StrainRace: C SUMMARY: LV EF is severely depressed.Global hypokinesis.RV systolic function is normal.LV relaxation is impaired.LV filling pressure is elevated.Insufficient TR jet to estimate PA systolic pressure. --------FINDINGS: LV: LV size is moderately enlarged. LV EFis severely depressed. Global hypokinesis. Estimated EF is 20-24%.RV: RV size is normal. RV systolic function is normal. RV wall motion is normal.LA: LA volume is severely enlarged.RA: RA size is normal.AO: Aortic root diameter is normal.KERRIE: No pericardial effusion.AV: Mild thickening of AV leaflets. A trace of aortic regurgitation. MV: Mild mitral annular calcification. Mild mitral regurgitation. PV: No structuralPV abnormalities noted.TV: No structural TV abnormalities noted.Thao: LV relaxation is impaired. LV filling pressure is elevated.Other: Insufficient TR jet to estimate PA systolic pressure. MEASUREMENTS: ----- 2DParasternal Long [place] Ao An 2.4 cm LVPWd 1.1 cm Ao Rtd 3.4 cm Index 1.8 cm/m2 LA Ds 3.5 cm IVSd 1.1 cm RWT 0.4 LVIDd 5.8 cm Index 3 cm/m2 LV Mass 272.3 g (122-174) LVIDs 4.8 cm LVM Index 142.6 g/m2 LV%fs 17.6 % LA Sng Plane LA Area 29 cm2 (8.8-23.4) LA Vol 102 ml Index 53.4 ml/m2 LA LngAx 7 cm RA Sng Plane RA Vol 35.2 ml Index 18.4 ml/m2 RA LngAx 5.2 cm RAArea 14.7 cm2 (8.3-19.5)LVOT Stroke Vol LVOT 2 cm LVOT LVOT Area 3.1 cm2 DOPPLERLVOT Stroke Vol LVOT TVI 15.3cm LVOT CI 2.4 l/m/m2 LVOT SV 48.1 ml HR 96 bpm LVOT CO 4.6 l/min LVOT SVi 25.2 ml/m2 Signed 09/26/2019 01:45 Desmond Jones MethodistAnti Xa, [id number] 08:01:38 Test Item Value Reference Range Interpretation Comments Anti Xa, unfractionated 0.23 U/mL 0.3-0.7 L Ther apeutic Range: (test code = 3274-8) 0.30 - 0.70 U/mL Lab Interpretation (test Abnormal code = 64160-7) Stew MethodistMagnesium [id number] 07:46:56 Test Item Value Reference Range Interpretation Comments Magnesium (test code = 41301-1) 2.0 mg/dL 1.6-2.4 Stew MethodistPotassium [id number] 17:08:27 Test Item Value Reference Range Interpretation Comments Potassium (test code = 2823-3) 3.7 3.5- 5.0 mEq/L Stew BarrettVlnvpaaueJnmsgxgi2846-54-96 15:31:08 Test Item Value Reference Range Interpretation Comments Troponin (test code = 1.070 ng/mL 0-0.04 [facility] [place] [facility] 54[address]-5) Laboratories ch anged methodology effective: 2018 at 10:00 amThe new method has a 99 th percentile cuto ff of 0.040 ng/mL Lab Interpretation Abnormal (test code = 23964-7) Mathias MethodistXR Chest 1 Vw [id number] 10:10:48Hm Interface, Radiology Results Incoming - 09/25/2019 10:13 AM CSTXR CHEST 1 VW PORTABLECLINICAL INDICATION: R O pneumoniaCOMPARISON: 12/14/2018IMPRESSION:Heart is normal in size with mild atherosclerosis of the aorta. There is minimal left basilar atelectasis with questionable trace fluid. There is no pneumothorax. Bones demonstrates stable degenerative changes with thoracic stimulator lead noted.No acute change.*[facility]-[id number] MethodistCT Head Wo Lsphorqd2846-06-92 08:54:41Hm Interface, Radiology Results Incoming - 09/25/2019 8:57 AM CSTEXAMINATION: CT HEAD WO CONTRASTCLINICAL HISTORY: Altered level of consciousness (LOC) unexplainedCOMPARISON: 12/13/2018.TECHNIQUE: Non contrast CT of the brain was performed from the skull base to the vertex. Both soft tissue and bone reconstruction algorithms are interpreted.CT imaging was performed with iterative reconstruction techniques and/or automated exposure control to reduce radiation dose.FINDINGS:No intracranial hemorrhage, extra- axial collection, or mass-effect is seen. No acute cortical infarct is identified. No hyperdense vessel is seen.Involutional changes of brain are again noted with njsr-wj-bhisooyz chronic smallvessel ischemic changes.No air-fluid level is seen in the visualized portions of the paranasal sinuses. Mastoid air cells are clear.IMPRESSION:No acute intracranial abnormality identified.No significant interval change.[facility]-[id number] MethodistArterial blood gas 2019-09-25 08:46:15 Test Item Value Reference Range Interpretation Comments pH, arterial (test code = 2744-1) 7.44 7.35-7.45 pCO2, arterial (test code = 41 35- 45 mmHg 2019-06) pO2, arterial (test code = 100 80- 90 mmHg H 2703-7) Bicarbonate, arterial (test code 27.4 mmol/L - = 1960-4) Base excess, arterial (test code 3 -2 - 2 mEq-L H = 1925-7) O2 saturation, arterial (test 98 % 95-100 code = 2708-6) Lab Interpretation (test code = Abnormal 87877-9) [place] MethodistPartial thromboplastin time, [id number] 07:32:47 Test Item Value Reference Range Interpretation Comments PTT (test code = 61.6 23.0- 36.0 sec H PTT thera peutic range 89547-3) for unfractiona diamante heparin is61.0- 112.0 seconds which corresponds to Anti-Xa0.3-0.7 U/ml. Lab Interpretation Abnormal (test code = 22337-0) Mathias MethodistThyroid stimulating [id number] 07:21:26 Test Item Value Reference Range Interpretation Comments TSH (test code = 3016-3) 2.58 0.27- 4.20 uIU/mL Mathias MethodistT4, [id number] 01:38:43 Test Item Value Reference Range Interpretation Comments T4, free (test code = 3024-7) 1.3 ng/dL 0.9-1.7 [place] MethodistLipid [id number] 01:17:04 Test Item Value Reference Interpretation Comments Range Cholesterol (test 126 mg/dL <200 code = 2093-3) Triglycerides (test 92 mg/dL <150 code = 2571-8) HDL cholesterol 67 mg/dL >40 (test code = 2085-9) LDL cholesterol 60 mg/dL <100 Result obtai radha by direct (test code = 2089-1) LDL anu surement Lipid panel SeeBelow Total Cholester ol (mg/dL) interpretation (test < 200 code = 36665-8) Desirable 200-239 Borderline -high >=240 Hi gh Triglyceri janey (mg/dL) <150 No rmal 150-199 Borderline-high 200-499 High >=500 Very high HDL Choles terol (mg/dL) <40 Low (male) < 40 Low (female) L DL Cholesterol (mg /dL) <100 Optimal 1 00-129 Near or above o ptimal 130-159 Borderline-high 160-189 High >=190 Very high Risk Cat ergories that modify LDL goals.Risk Catergories LDL goal (mg/dL )CHD and CHD risk equiva lent <100 (10-year risk >20%)Multiple ( 2+) risk factors < 130 (10-year risk = <20%)0-1 risk factors <160 (<10-ye ar risk) Defining levels of lipids in metabolic syndromeTriglyc erides > =150 mg/dLHDL Choles terol Men <40 mg/dL Women <40 mg/dL Non-HDL cholest ann is a second target f or therapy in personswith high triglycerides ( >=200 mg/dL) Stew PatelProthrombin time with [id number] 22:27:00 Test Item Value Reference Range Interpretation Comments Prothrombin time (test 15.4 11.5- 14.5 sec H code = 5902-2) INR (test code = 1.2 The Interna tional 45173-6) Normalized Rati o (INR) is a therapeuti c monitoring tool for patients who ar e stable on oral anticoagulant t herapy. An INR of 2.0-3 .0 is suggested for d eep vein thrombosis/pulm onary embolism. Lab Interpretation Abnormal (test code = 51046-9) [facility]elC[facility]ALL [facility] [id number] 21:26:55 Test Item Value Reference Range Interpretation Comments WBC (test code = 10902-1) 7.82 4.50- 11.00 k/uL RBC (test code = 05113-6) 4.34 m/uL 4.4-6 L HGB (test code = 718-7) 12.7 g/dL 14-18 L HCT (test code = 4544-3) 38.5 % 41-51 L MCV (test code = 787-2) 88.7 fL 82-100 MCH (test code = 785-6) 29.3 pg 27-34 MCHC (test code = 786-4) 33.0 g/dL 31-37 RDW - SD (test code = 46199-4) 45.3 fL 37-55 MPV (test code = 62271-0) 11.6 fL 8.8-13.2 Platelet count (test code = 137 150- 400 k/uL L 21417-9) Nucleated RBC (test code = 0.00 /100 WBC 35795-7) Lab Interpretation (test code = Abnormal 32518-5) Stew Patel
--- NOTE | 2020-07-13 10:33 | RAD REPORT ---
EXAM DESCRIPTION: RAD - Abdomen 1 View (KUB) - 07/13/2020 10:21 am CLINICAL HISTORY: back pain COMPARISON: Chest Abd Pelvis Wo Con dated 03/09/2020 FINDINGS: Moderate stool volume is present filling but not distending the colon. No small bowel dila tation. There is no free air or pneumatosis evident. Phleboliths are present. Arterial tree calcifica tions are present. L3-L5 lumbar surgical changes are noted. Patient has a neurostimulator battery pack overlying the ri ght iliac crest. Wires extend to the T9 level. Penile prosthesis in place. No acute bone process suspected. Patient has advanced degenerative disc disease at T12-L1. IMPRESSION: Nonspecific bowel gas pattern with moderate stool volume in the colon. No findings to suspect obstructing ureteral calculus. Postsurgical changes to the lumbar spine with advanced degenerative change of the T12-L1 disc space.
--- NOTE | 2020-07-13 10:46 | EDPHYS ---
Physician Documentation [facility] Name: Demetrius Sarmiento Age: 80 yrs Sex: Male : 1940 Arrival Date: 07/13/2020 Time: 07:37 Bed 7 Private MD: ED Physician Esteban Martinez HPI: 07/13 08:02 This 80 yrs old Male presents to ER via Ambulatory with complaints of Back kdr Pain. 08:02 The patient presents with pain that is acute, with no known mechanism of injury. The kdr symptoms are located in the low back. Onset: The symptoms/episode began/occurred gradually, 3 week(s) ago. The pain radiates to the left hamstring and posterior aspect of left knee. Associated signs and symptoms: Pertinent positives: none Pertinent negatives: dysuria, fever, headache, hematuria, incontinence, urinary retention. The problem was sustained from unknown cause. Modifying factors: The patient symptoms are alleviated by codeine, the patient symptoms are aggravated by movement. Severity of symptoms: At their worst the symptoms were mild, moderate, just prior to arrival, in the emergency department the symptoms are unchanged. The patient has experienced similar episodes in the past, multiple times. The patient has been recently seen by a physician: The patient was seen at [facility] on 06/26/20 for the same problem and had CT done at that time. No acute fractures seen, only degenerative changes. Historical: - Allergies: 07:57 No Known Allergies; ss - Home Meds: 08:21 Vitamin B-12 1,000 mcg Oral tab daily [Active]; isosorbide mononitrate 30 mg Oral Tb24 tw2 1 tab nightly [Active]; glipizide 5 mg Oral tab 0.5 tab 2 times per day [Active]; atorvastatin 40 mg Oral tab 1 tab nightly [Active]; Lasix 20 mg Oral tab 1 tab once daily [Active]; metoprolol tartrate 25 mg Oral tab 1 tab 2 times per day [Active]; magnesium oxide 400 mg Oral tab nightly [Active]; ranolazine 500 mg Oral 1 tab 2 times per day [Active]; potassium chloride 10 mEq Oral cpER 1 cap once daily [Active]; multivitamin Oral tab daily [Active]; donepezil 5 mg Oral tab 1 tab nightly [Active]; aspirin 81 mg Oral TbEC 1 tab once daily [Active]; - PMHx: 07:57 CAD; cardiac arrest; Hypertension; Myocardial infarction; High Cholesterol; Diabetes - ss IDDM; Chronic pain; chronic kidney disease; CHF; - PSHx: 07:57 Heart stents; Tonsillectomy; back stimulator; ss - Immunization history:: Adult Immunizations up to date. - Social history:: Smoking status: Patient denies any tobacco usage or history of. ROS: 08:55 Constitutional: Negative for fever, chills, and weight loss, Eyes: Negative for injury, kdr pain, redness, and discharge, Neck: Negative for injury, pain, and swelling, Cardiovascular: Negative for chest pain, palpitations, and edema, Respiratory: Negative for shortness of breath, cough, wheezing, and pleuritic chest pain, Abdomen/GI: Negative for abdominal pain, nausea, vomiting, diarrhea, and constipation, : Negative for injury, bleeding, discharge, and swelling, MS/Extremity: Negative for injury and deformity, Skin: Negative for injury, rash, and discoloration, Psych: Negative for depression, anxiety, suicide ideation, homicidal ideation, and hallucinations, Allergy/Immunology: Negative for hives, rash, and allergies, Endocrine: Negative for neck swelling, polydipsia, polyuria, polyphagia, and marked weight changes, Hematologic/Lymphatic: Negative for swollen nodes, abnormal bleeding, and unusual bruising. 08:55 Back: Positive for pain at rest. Exam: 08:55 Constitutional: This is a well developed, well nourished patient who is awake, alert, kdr and in no acute distress. Head/Face: Normocephalic, atraumatic. Eyes: Pupils equal round and reactive to light, extra-ocular motions intact. Lids and lashes normal. Conjunctiva and sclera are non-icteric and not injected. Cornea within normal limits. Periorbital areas with no swelling, redness, or edema. Neck: Trachea midline, no thyromegaly or masses palpated, and no cervical lymphadenopathy. Supple, full range of motion without nuchal rigidity, or vertebral point tenderness. No Meningismus. Chest/axilla: Normal chest wall appearance and motion. Nontender with no deformity. No lesions are appreciated. Cardiovascular: Regular rate and rhythm with a normal S1 and S2. No gallops, murmurs, or rubs. Normal PMI, no JVD. No pulse deficits. Respiratory: Lungs have equal breath sounds bilaterally, clear to auscultation and percussion. No rales, rhonchi or wheezes noted. No increased work of breathing, no retractions or nasal flaring. Abdomen/GI: Soft, non-tender, with normal bowel sounds. No distension or tympany. No guarding or rebound. No evidence of tenderness throughout. Skin: Warm, dry with normal turgor. Normal color with no rashes, no lesions, and no evidence of cellulitis. MS/ Extremity: Pulses equal, no cyanosis. Neurovascular intact. Full, normal range of motion. Psych: Awake, alert, with orientation to person, place and time. Behavior, mood, and affect are within normal limits. 08:55 Back: pain, that is mild, of the left low back, ROM is painful, normal spinal alignment noted, CVA tenderness, is absent, vertebral tenderness, is not appreciated, muscle spasm, is not present. Vital Signs: 07:51 BP 160 / 78; Pulse 106; Resp 17; Temp 97.6(TE); Pulse Ox 96% on R/A; Weight 74.84 kg; ss Height 5 ft. 8 in. (172.72 cm); Pain 6/10; 09:13 BP 137 / 71; Pulse 93; Resp 17; Pulse Ox 100% on R/A; tw2 10:17 BP 141 / 76; Pulse 94; Resp 17; Pulse Ox 98% on R/A; hb 10:30 BP 137 / 93; Pulse 86; Resp 17; Pulse Ox 97% on R/A; tw2 07:51 Body Mass Index 25.09 (74.84 kg, 172.72 cm) ss MDM: 08:55 Data reviewed: vital signs, nurses notes, radiologic studies. Counseling: I had a kdr detailed discussion with the patient and/or guardian regarding: the historical points, exam findings, and any diagnostic results supporting the discharge/admit diagnosis, radiology results, the need for outpatient follow up. 10:45 Patient medically screened. kdr 07/13 09:51 Order name: Abdomen 1 View (KUB) XRAY; Complete Time: 10:44 kdr Administered Medications: 10:52 Drug: TORadol - Ketorolac 15 mg Route: IM; Site: right deltoid; hb 11:40 Follow up: Response: No adverse reaction; Pain is decreased tw2 10:52 Drug: predniSONE 20 mg Route: PO; hb 11:40 Follow up: Response: No adverse reaction tw2 Disposition: 07/13/20 10:45 Discharged to Home. Impression: Low back pain, Radiculopathy, lumbosacral region. - Condition is Stable. - Discharge Instructions: Musculoskeletal Pain, Back Injury Prevention, Nzma-tz-Nxjh, Back Pain, Adult, Borh-jb-Tpfw, Back Exercises, Anid-ij-Mxwm. - Prescriptions for Ibuprofen 600 mg Oral Tablet - take 1 tablet by ORAL route every 6 hours As needed take with food; 30 tablet. Tylenol- Codeine #3 300-30 mg Oral Tablet - take 1 tablet by ORAL route every 4-6 hours As needed; 12 tablet. Cyclobenzaprine 5 mg Oral Tablet - take 1 tablet by ORAL route 3 times per day As needed; 15 tablet. - Medication Reconciliation Form, Thank You Letter, Prescription Opioid Use form. - Follow up: Private Physician; When: 2 - 3 days; Reason: If symptoms return, Further diagnostic work-up, Recheck today's complaints, Continuance of care, Re-evaluation by your physician. - Problem is new. - Symptoms have improved. Signatures: Dispatcher [employer] EDMS Esteban Martinez MD MD [facility] Vicky Roach RN RN Allegra Ricks RN RN Laury Washington RN RN tw2 Corrections: (The following items were deleted from the chart) 10:46 10:45 07/13/2020 10:45 Discharged to Home. Impression: Low back pain. Condition is kdr Stable. Forms are Medication Reconciliation Form, Thank You Letter, Antibiotic Education, Prescription Opioid Use. Follow up: Private Physician; When: 2 - 3 days; Reason: If symptoms return, Further diagnostic work-up, Recheck today's complaints, Continuance of care, Re-evaluation by your physician. Problem is new. Symptoms have improved. kdr 11:41 10:46 07/13/2020 10:45 Discharged to Home. Impression: Low back pain; Radiculopathy, tw2 lumbosacral region. Condition is Stable. Forms are Medication Reconciliation Form, Thank You Letter, Antibiotic Education, Prescription Opioid Use. Follow up: Private Physician; When: 2 - 3 days; Reason: If symptoms return, Further diagnostic work-up, Recheck today's complaints, Continuance of care, Re-evaluation by your physician. Problem is new. Symptoms have improved. kdr
--- NOTE | 2020-07-13 10:46 | ER ---
Nurse's Notes [facility] [place] Name: Demetrius Sarmiento Age: 80 yrs Sex: Male : 1940 Arrival Date: 07/13/2020 Time: 07:37 Bed 7 Private MD: Diagnosis: Low back pain;Radiculopathy, lumbosacral region Presentation: 07/13 07:51 Chief complaint: Patient states: low back pain x weeks. No known injury. Coronavirus ss screen: Client denies travel out of the [place] in the last 14 days. At this time, the client does not indicate any symptoms associated with coronavirus-19. Ebola Screen: Patient denies exposure to infectious person. Patient denies travel to an Ebola-affected area in the 21 days before illness onset. Initial Sepsis Screen: Does the patient meet any 2 criteria? No. Patient's initial sepsis screen is negative. Does the patient have a suspected source of infection? No. Patient's initial sepsis screen is negative. Risk Assessment: Do you want to hurt yourself or someone else? Patient reports no desire to harm self or others. Onset of symptoms was June 2020. 07:51 Method Of Arrival: Ambulatory ss 07:51 Acuity: LANCE 3 ss Historical: - Allergies: 07:57 No Known Allergies; ss - Home Meds: 08:21 Vitamin B-12 1,000 mcg Oral tab daily [Active]; isosorbide mononitrate 30 mg Oral Tb24 tw2 1 tab nightly [Active]; glipizide 5 mg Oral tab 0.5 tab 2 times per day [Active]; atorvastatin 40 mg Oral tab 1 tab nightly [Active]; Lasix 20 mg Oral tab 1 tab once daily [Active]; metoprolol tartrate 25 mg Oral tab 1 tab 2 times per day [Active]; magnesium oxide 400 mg Oral tab nightly [Active]; ranolazine 500 mg Oral 1 tab 2 times per day [Active]; potassium chloride 10 mEq Oral cpER 1 cap once daily [Active]; multivitamin Oral tab daily [Active]; donepezil 5 mg Oral tab 1 tab nightly [Active]; aspirin 81 mg Oral TbEC 1 tab once daily [Active]; - PMHx: 07:57 CAD; cardiac arrest; Hypertension; Myocardial infarction; High Cholesterol; Diabetes - ss IDDM; Chronic pain; chronic kidney disease; CHF; - PSHx: 07:57 Heart stents; Tonsillectomy; back stimulator; ss - Immunization history:: Adult Immunizations up to date. - Social history:: Smoking status: Patient denies any tobacco usage or history of. Screenin:19 Abuse screen: Denies threats or abuse. Nutritional screening: No deficits noted. tw2 Tuberculosis screening: No symptoms or risk factors identified. Fall Risk Secondary diagnosis (15 points) impaired mobility. Assessment: 08:15 General: Appears in no apparent distress. Behavior is calm, cooperative. Pain: Pain hb currently is 5 out of 10 on a pain scale. Neuro: Level of Consciousness is awake, alert, obeys commands, Oriented to person, place, time, situation. Cardiovascular: Capillary refill < 3 seconds Patient's skin is warm and dry. Respiratory: Respiratory effort is even, unlabored, Respiratory pattern is regular, symmetrical. GI: No signs and/or symptoms were reported involving the gastrointestinal system. : No signs and/or symptoms were reported regarding the genitourinary system. EENT: No signs and/or symptoms were reported regarding the EENT system. Derm: Skin is pink, warm \\T\\ dry. Musculoskeletal: Reports low back pain. 09:13 Reassessment: Patient appears in no apparent distress at this time. No changes from tw2 previously documented assessment. Patient and/or family updated on plan of care and expected duration. Pain level reassessed. Patient is alert, oriented x 3, equal unlabored respirations, skin warm/dry/pink. pt requests to sit in a wheelchair at this time, wheelchair and pillow provided for lower back, pt given call light, and said "this will work for now, its just hard to get comfortable". 09:55 Reassessment: pt transported to MRI at this time via wheelchair. tw2 10:00 Reassessment: Pt returned from MRI. hb 10:16 Reassessment: Patient appears in no apparent distress at this time. Patient and/or hb family updated on plan of care and expected duration. Pain level reassessed. Patient is alert, oriented x 3, equal unlabored respirations, skin warm/dry/pink. 10:58 Reassessment: provider at bedside at this time. tw2 11:38 Reassessment: Patient appears in no apparent distress at this time. Patient and/or tw2 family updated on plan of care and expected duration. Pain level reassessed. Patient is alert, oriented x 3, equal unlabored respirations, skin warm/dry/pink. Patient states feeling better. Vital Signs: 07:51 BP 160 / 78; Pulse 106; Resp 17; Temp 97.6(TE); Pulse Ox 96% on R/A; Weight 74.84 kg; ss Height 5 ft. 8 in. (172.72 cm); Pain 6/10; 09:13 BP 137 / 71; Pulse 93; Resp 17; Pulse Ox 100% on R/A; tw2 10:17 BP 141 / 76; Pulse 94; Resp 17; Pulse Ox 98% on R/A; hb 10:30 BP 137 / 93; Pulse 86; Resp 17; Pulse Ox 97% on R/A; tw2 07:51 Body Mass Index 25.09 (74.84 kg, 172.72 cm) ED Course: 07:37 Patient arrived in ED. ds1 07:43 Esteban Martinez MD is Attending Physician. kdr 07:45 Bed in low position. Call light in reach. Pulse ox on. NIBP on. tw2 07:52 Triage completed. ss 07:57 Arm band placed on left wrist. ss 08:20 Allegra Ricks, RN is Primary Nurse. hb 10:18 Abdomen 1 View (KUB) XRAY In Process Unspecified. EDMS 11:39 No provider procedures requiring assistance completed. Patient did not have IV access tw2 during this emergency room visit. Administered Medications: 10:52 Drug: TORadol - Ketorolac 15 mg Route: IM; Site: right deltoid; hb 11:40 Follow up: Response: No adverse reaction; Pain is decreased tw2 10:52 Drug: predniSONE 20 mg Route: PO; hb 11:40 Follow up: Response: No adverse reaction tw2 Outcome: 10:45 Discharge ordered by . kdr 11:39 Discharged to home via wheelchair. tw2 11:39 Condition: stable 11:39 Discharge instructions given to patient, Instructed on discharge instructions, follow up and referral plans. no drinking with medication, no driving heavy equipment, medication usage, Demonstrated understanding of instructions, follow-up care, medications, Prescriptions given X 3. 11:41 Patient left the ED. tw2 Signatures: Dispatcher [employer] EDMS Esteban Martinez MD MD kdr Sanford, Demi ds1 Vicky Roach RN RN ss Allegra Ricks RN RN Laury Washington RN RN tw2 Corrections: (The following items were deleted from the chart) 09:24 09:13 Reassessment: Patient appears in no apparent distress at this time. No changes tw2 from previously documented assessment. Patient and/or family updated on plan of care and expected duration. Pain level reassessed. Patient is alert, oriented x 3, equal unlabored respirations, skin warm/dry/pink. tw2
[2020-07-13] MEDS ORDERED: predniSONE 20 MG TAB ONE (10:57)
[2020-07-13] MEDS ORDERED: KETOROLAC 30 MG/ML INJ ONE (10:58)
[2020-07-17 11:16] VITALS: TEMP 97.6
[2020-07-17 11:25] VITALS: BP 137/93; O2SAT 97
== END 2020-07-13 11:41 | disposition home or self-care (01) ==
LOC: ER 07:35
DX: M54.17 Radiculopathy, lumbosacral region (principal); E11.22 Type 2 diabetes mellitus with diabetic chronic kidney disease; I12.9 Hypertensive chronic kidney disease with stage 1 through stage 4 chronic kidney disease, or unspecified chronic kidney disease; N18.9 Chronic kidney disease, unspecified; Z79.82 Long term (current) use of aspirin; E78.00 Pure hypercholesterolemia, unspecified; Z95.818 Presence of other cardiac implants and grafts
CPT/HCPCS: 74018; 96372; 99284; J7512

== ENCOUNTER 2020-09-24 01:09 | Inpatient (IN) | payer OTHER ==
--- OUTSIDE RECORDS SUMMARY | 2020-09-24 01:13 | XMS REPORT | Clinical Summary ---
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 Srini Herrera indal NEPHRECTOMY Right CORONARY ANGIOPLASTY WITH 4 tota l STENT PLACEMENT LUMBAR LAMINECTOMY 11/16/2012 - by Dr. Tip Scruggs 11/15/2013 APPENDECTOMY CARDIAC CATHERIZATION PENILE PROSTHESIS IMPLANT IMPLANTATION, PERIPHERAL 10/28/2018 Back/N/A Procedu re: SPINAL CORD NERVE STIMULATOR STIMULATOR TRIA L; Surgeon: Joey Duke MD; Location: [facility] Main OR; Service: Neurosurgery; Laterality: N/A; Medical devices from this surgery are in the Implants section . INSERTION, NEUROSTIMULATOR 11/25/2018 N/A Proce dure: SPINAL CORD PULSE GENERATOR, SPINAL, STIMULA TOR IMPLANTATION SUBCUTANEOUS PERMANENT THORAC IC; Surgeon: Joey Duke MD; Location: [facility] Main OR; Service: Neurosurgery; Laterality: N/A; Medical devices from this surgery are in the Implants section . CARDIAC CATHETERIZATION 09/26/2019 N/A Procedur e: Selective coronary angiogr aphy; Surgeon: Jono Prieto MD; L ocation: [facility] WT Environmental Conservation Officer Invasive Location; Servi ce: Cardiology; Lat erality: N/A; CARDIAC CATHETERIZATION 09/26/2019 N/A Procedur e: Cv left heart cath; Surgeon: Jono Prieto MD; L ocation: [facility] WT Environmental Conservation Officer Invasive Location; Servi ce: Cardiology; Lat erality: N/A; CARDIAC CATHETERIZATION 09/26/2019 N/A Procedur e: iFR; Surgeon: Jono Prieto MD; L ocation: [facility] WT Environmental Conservation Officer Invasive Location; Servi ce: Cardiology; Lat erality: N/A; Medical History Medical History Date Comments Hypertension Hyperlipemia Coronary artery disease Obstructive sleep apnea NO CPAP PER PT History of kidney cancer right Full dentures BOTH Hard of hearing NO HEARING AIDS Up-to-date with immunizations PER PT Exercise tolerance finding NO FORMAL EXE RCISE; WALKING AROUND THE HOUSE AND GROCER Y STORES DENIES CP OR SOB PER PT Depression Anxiety Alzheimer disease (HCC) Myocardial infarction (HCC) 1994, 1998 X4 STENTS; P T SEES CARDIOLOGY DR. AMBROCIO PICKENS TWICE A YEAR [phone] LAST SIT EARLY 2017 Diabetic neuropathy, type II diabetes mellitus (HCC) Asthma childhood Prostate cancer (HCC) 1997 radiation treatmen t Wears glasses Family History Medical History Relation Name Comments Heart disease Father Seizures Father Alzheimer's disease Mother Cancer Mother BREAST Relation Name Status Comments Father Mother Social History Tobacco Use Types Packs/Day Years Used Date Former Smoker Cigarettes 1 Quit: 1994 Smokeless Tobacco: Never Used Alcohol Use Drinks/Week oz/Week Comments No Sex Assigned at Date Recorded Not on file Last Filed Vital Signs Vital Sign Reading Time Taken Comments Blood Pressure 109/71 09/28/2019 7:41 AM SALES AND MARKETING VICE PRESIDENT Pulse 84 09/28/2019 8:07 AM SALES AND MARKETING VICE PRESIDENT Temperature 36.3 C (97.3 F) 09/28/2019 7:41 AM SALES AND MARKETING VICE PRESIDENT Respiratory Rate 18 09/28/2019 8:07 AM SALES AND MARKETING VICE PRESIDENT Oxygen Saturation 96% 09/28/2019 8:04 AM SALES AND MARKETING VICE PRESIDENT Inhaled Oxygen Concentration - - Weight 79.2 kg (174 lb 11.2 oz) 09/28/2019 4:53 AM SALES AND MARKETING VICE PRESIDENT Height 170.2 cm (5' 7") 09/27/2019 2:32 PM SALES AND MARKETING VICE PRESIDENT Body Mass Index 27.36 09/27/2019 2:32 PM SALES AND MARKETING VICE PRESIDENT Plan of Treatment Health Maintenance Due Date Last Done Comments DIABETIC FOOT EXAM 1950 SHINGLES VACCINES (#1) 1989 65+ PNEUMOCOCCAL VACCINE (2 of 2 - 2004 10/23/2016 PPSV23) DIABETES: RETINAL EYE EXAM 03/08/2020 03/08/2018, 7, 01/19/2017, Additional history exists INFLUENZA VACCINE 06/16/2020 09/09/2018, 09/09/2018, 09/09/2018, Additional history exists Implants Implanted Type Area Dip [place] Device Shelf Model / Identifier Expiration Serial / Date Lot Trial Lead, 50cm - Sna - [id number] Cardiac Pacing N/A: Spine 07/14/2021 [id number] / Implanted: Qty: 1 on 10/28/2018 by Joey Duke MD at [facility] Leads or Thoracic NA / Electrodes or [id number] Accessories Trial Lead, 50cm - Sna - [id number] Cardiac Pacing N/A: Spine 07/14/2021 [id number] / Implanted: Qty: 1 on 10/28/2018 by Joey Duke MD at [facility] Leads or Thoracic NA / Electrodes or [id number] Accessories Lead Kit, 70cm - [id number] IPM IMPLANT N/A: Spine 08/13/2021 [id number] / Implanted: 11/25/2018 at [facility] (Quantity not on file) DEVIC ES Thoracic 07/25/9999 / [id number] Senza [id number] Kit - [id number] IPM IMPLANT N/A: N/A 08/26/2020 [id number] / Implanted: 11/25/2018 at [facility] (Quantity not on file) DEVICES / [id number] Lead [place] Kit (N300) - [id number] IPM IMPLANT N/A: N/A 07/06/2021 [id number] / Implanted: 11/25/2018 at [facility] (Quantity not on file) DEVICES / [id number] Patient Remote Kit - [id number] IPM IMPLANT N/A: N/A [id number] / Implanted: 11/25/2018 at [facility] (Quantity not on file) DEVICES / [id number] 14ga, 4in, Rx-2 Coude Epidural Needle For Epidural Access Needle N/A: N/A EPIMED INTL 07/11/2023 [id number] / Implanted: Qty: 2 on 11/25/2018 by Joey Duke MD at [facility] / [id number] Heart Stent X 2 Penile Implant-12/21/2014 Implanted: 12/21/2014 (Quantity not on file) Procedures Procedure Name Priority Date/Time Associated Comments Diagnosis POC GLUCOSE Routine 09/28/2019 7:42 Results for this AM SALES AND MARKETING VICE PRESIDENT procedure are i n the results section. HC COMPLETE BLD COUNT Routine 09/28/2019 4:45 Re sults for this W/AUTO DIFF AM SALES AND MARKETING VICE PRESIDENT procedure are i n the results section. ESTIMATED GFR Routine 09/28/2019 12:00 Results fo r this AM SALES AND MARKETING VICE PRESIDENT procedure are i n the results section. BASIC METABOLIC PANEL Routine 09/28/2019 12:00 Re sults for this AM SALES AND MARKETING VICE PRESIDENT procedure are i n the results section. POC GLUCOSE Routine 09/27/2019 9:34 Results for this PM SALES AND MARKETING VICE PRESIDENT procedure are i n the results section. NM MYOCARDIAL PERFUSION Routine 09/27/2019 5:37 Results for this IMAGING W TL-201 PM SALES AND MARKETING VICE PRESIDENT procedure a re in VIABILITY the results section. CV STRESS TEST NUCLEAR Routine 09/27/2019 5:37 R esults for this CARDIO PM SALES AND MARKETING VICE PRESIDENT procedure are i n the results section. POC GLUCOSE Routine 09/27/2019 5:03 Results for this PM SALES AND MARKETING VICE PRESIDENT procedure are i n the results section. POC GLUCOSE Routine 09/27/2019 12:00 Results for this PM SALES AND MARKETING VICE PRESIDENT procedure are i n the results section. POC GLUCOSE Routine 09/27/2019 8:55 Results for this AM SALES AND MARKETING VICE PRESIDENT procedure are i n the results section. POC GLUCOSE Routine 09/26/2019 8:20 Results for this PM SALES AND MARKETING VICE PRESIDENT procedure are i n the results section. ACTIVATED CLOTTING TIME Routine 09/26/2019 5:40 Results for this PM SALES AND MARKETING VICE PRESIDENT procedure are i n the results section. POC GLUCOSE Routine 09/26/2019 5:20 Results for this PM SALES AND MARKETING VICE PRESIDENT procedure are i n the results section. ACTIVATED CLOTTING TIME Routine 09/26/2019 5:16 Results for this PM SALES AND MARKETING VICE PRESIDENT procedure are i n the results section. CV UNLISTED BROACH OPERATOR Routine 09/26/2019 4:54 Res ults for this PROCEDURE PM SALES AND MARKETING VICE PRESIDENT procedure are i n the results section. CV LEFT HEART CATH Routine 09/26/2019 4:54 Resul ts for this PM SALES AND MARKETING VICE PRESIDENT procedure are i n the results section. CV SELECTIVE CORONARY Routine 09/26/2019 4:54 Re sults for this ANGIOGRAPHY PM SALES AND MARKETING VICE PRESIDENT procedure are i n the results section. ACTIVATED CLOTTING TIME Routine 09/26/2019 4:51 Results for this PM SALES AND MARKETING VICE PRESIDENT procedure are i n the results section. ACTIVATED CLOTTING TIME Routine 09/26/2019 4:42 Results for this PM SALES AND MARKETING VICE PRESIDENT procedure are i n the results section. ACTIVATED CLOTTING TIME Routine 09/26/2019 4:30 Results for this PM SALES AND MARKETING VICE PRESIDENT procedure are i n the results section. POC GLUCOSE Routine 09/26/2019 1:33 Results for this PM SALES AND MARKETING VICE PRESIDENT procedure are i n the results section. TTE COMPLETE, WO STAT 09/26/2019 11:36 Results for this CONTRAST, W DOPPLER AM SALES AND MARKETING VICE PRESIDENT procedur e are in ([id number]) the results section. POC GLUCOSE Routine 09/26/2019 8:13 Results for this AM SALES AND MARKETING VICE PRESIDENT procedure are i n the results section. ANTI XA, UNFRACTIONATED Routine 09/26/2019 6:30 Results for this AM SALES AND MARKETING VICE PRESIDENT procedure are i n the results section. ESTIMATED GFR Routine 09/26/2019 4:00 Results fo r this AM SALES AND MARKETING VICE PRESIDENT procedure are i n the results section. MAGNESIUM LEVEL Routine 09/26/2019 4:00 Results for this AM SALES AND MARKETING VICE PRESIDENT procedure are i n the results section. BASIC METABOLIC PANEL Routine 09/26/2019 4:00 Re sults for this AM SALES AND MARKETING VICE PRESIDENT procedure are i n the results section. POC GLUCOSE Routine 09/25/2019 8:45 Results for this PM SALES AND MARKETING VICE PRESIDENT procedure are i n the results section. POC GLUCOSE Routine 09/25/2019 5:15 Results for this PM SALES AND MARKETING VICE PRESIDENT procedure are i n the results section. POTASSIUM LEVEL STAT 09/25/2019 2:39 Results for this PM SALES AND MARKETING VICE PRESIDENT procedure are i n the results section. MAGNESIUM LEVEL STAT 09/25/2019 2:39 Results for this PM SALES AND MARKETING VICE PRESIDENT procedure are i n the results section. TROPONIN STAT 09/25/2019 2:39 Results for this PM SALES AND MARKETING VICE PRESIDENT procedure are i n the results section. ANTI XA, UNFRACTIONATED STAT 09/25/2019 2:39 Results for this PM SALES AND MARKETING VICE PRESIDENT procedure are i n the results section. XR CHEST 1 VW PORTABLE STAT 09/25/2019 9:41 R esults for this AM SALES AND MARKETING VICE PRESIDENT procedure are i n the results section. POC GLUCOSE Routine 09/25/2019 9:03 Results for this AM SALES AND MARKETING VICE PRESIDENT procedure are i n the results section. CT HEAD WO CONTRAST STAT 09/25/2019 8:50 Resu lts for this AM SALES AND MARKETING VICE PRESIDENT procedure are i n the results section. ARTERIAL BLOOD GAS STAT 09/25/2019 8:30 Resul ts for this AM SALES AND MARKETING VICE PRESIDENT procedure are i n the results section. POC GLUCOSE Routine 09/25/2019 8:01 Results for this AM SALES AND MARKETING VICE PRESIDENT procedure are i n the results section. POC GLUCOSE Routine 09/25/2019 7:27 Results for this AM SALES AND MARKETING VICE PRESIDENT procedure are i n the results section. MAGNESIUM LEVEL Routine 09/25/2019 6:20 Results for this AM SALES AND MARKETING VICE PRESIDENT procedure are i n the results section. TROPONIN Routine 09/25/2019 6:20 Results for this AM SALES AND MARKETING VICE PRESIDENT procedure are i n the results section. PARTIAL THROMBOPLASTIN Routine 09/25/2019 6:20 R esults for this TIME (PTT) AM SALES AND MARKETING VICE PRESIDENT procedure are i n the results section. ANTI XA, UNFRACTIONATED Routine 09/25/2019 6:20 Results for this AM SALES AND MARKETING VICE PRESIDENT procedure are i n the results section. ESTIMATED GFR Routine 09/25/2019 6:20 Results fo r this AM SALES AND MARKETING VICE PRESIDENT procedure are i n the results section. THYROID STIMULATING Routine 09/25/2019 6:20 Resu lts for this HORMONE AM SALES AND MARKETING VICE PRESIDENT procedure are i n the results section. BASIC METABOLIC PANEL Routine 09/25/2019 6:20 Re sults for this AM SALES AND MARKETING VICE PRESIDENT procedure are i n the results section. HC COMPLETE BLD COUNT Routine 09/25/2019 6:20 Re sults for this W/AUTO DIFF AM SALES AND MARKETING VICE PRESIDENT procedure are i n the results section. POC GLUCOSE Routine 09/24/2019 9:30 Results for this PM SALES AND MARKETING VICE PRESIDENT procedure are i n the results section. CBC HEMOGRAM STAT 09/24/2019 9:10 Results for this PM SALES AND MARKETING VICE PRESIDENT procedure are i n the results section. T4, FREE Routine 09/24/2019 9:00 Results for this PM SALES AND MARKETING VICE PRESIDENT procedure are i n the results section. LIPID PANEL Routine 09/24/2019 9:00 Results for this PM SALES AND MARKETING VICE PRESIDENT procedure are i n the results section. TROPONIN Routine 09/24/2019 9:00 Results for this PM SALES AND MARKETING VICE PRESIDENT procedure are i n the results section. PROTHROMBIN TIME WITH STAT 09/24/2019 9:00 Re sults for this INR PM SALES AND MARKETING VICE PRESIDENT procedure are i n the results section. ANTI XA, UNFRACTIONATED STAT 09/24/2019 9:00 Results for this PM SALES AND MARKETING VICE PRESIDENT procedure are i n the results section. PARTIAL THROMBOPLASTIN STAT 09/24/2019 9:00 R esults for this TIME (PTT) PM SALES AND MARKETING VICE PRESIDENT procedure are i n the results section. after 09/24/2019 Results POC glucose (09/28/2019 7:42 AM SALES AND MARKETING VICE PRESIDENT)Only the most recent of15 resultswithin the time period is included. Pathologist Sig nature POC glucose 219 (H) 65 - 99 mg/dL [facility] Comment: H[facility]PITAL [facility] Notified RN Meter ID: [id number] Entry Tech: Madonna Proctor Specimen Performing Organization Address City/State/ZIP Code Phon e Number [facility] DEPARTMENT OF PATHOLOGY AND [address] [place] [address] [phone] GENOMIC MEDICINE [address] [address] CBC with platelet and differential (09/28/2019 4:45 AM SALES AND MARKETING VICE PRESIDENT)Only the most recent of2 resultswithin the time period is included. Pathologist [facility] WBC 7.11 4.50 - 11.00 [facility] k/uL HOSPITAL RBC 4.17 (L) 4.40 - 6.00 [facility] m/[facility] HGB 12.5 (L) 14.0 - 18.0 [facility] g/dL HOSPITAL HCT 37.1 (L) 41.0 - 51.0 % [facility] MCV 89.0 82.0 - 100.0 [facility] MCH 30.0 27.0 - 34.0 pg [facility] MCHC 33.7 31.0 - 37.0 [facility] gdL [facility] RDW - SD 44.6 37.0 - 55.0 fL [facility] MPV 11.3 8.8 - 13.2 fL [facility] Platelet count 167 150 - 400 k/uL [facility] Nucleated RBC 0.00 /100 WBC [facility] Neutrophils 67.8 39.0 - 69.0 % [facility] Lymphocytes 18.8 (L) 25.0 - 45.0 % [facility] Monocytes 9.6 0.0 - 10.0 % [facility] Eosinophils 3.1 0.0 - 5.0 % [facility] Basophils 0.4 0.0 - 1.0 % [facility] Immature granulocytes 0.3Comment: 0.0 - 1.0 % [facility] "Immature HOSPITAL granulocytes" (promyelocytes , myelocytes, metamyelocytes ) Specimen Blood Performing Organization Address City/State/ZIP Code Phon e Number [facility] DEPARTMENT OF PATHOLOGY AND [address] [place] [address] [phone] GENOMIC MEDICINE [address] [address] Estimated GFR (09/28/2019 12:00 AM SALES AND MARKETING VICE PRESIDENT)Only the most recent of3 resultswithin the time period is included. [facility] Estimated GFR 39 (A) mL/min/1.73 [facility] Comment: m2 HOSPITAL Catergory Units Interpretation G1 [...] 2014. Specimen Plasma specimen Performing Organization Address [facility] Phon e Number [facility] DEPARTMENT OF PATHOLOGY AND [address] [place], [place] [address] [address] [address] Basic metabolic panel (09/28/2019 12:00 AM SALES AND MARKETING VICE PRESIDENT)Only the most recent of3 results within the time period is included. Pathologist Sig nature Sodium 136 135 - 148 mEq/L [facility] Potassium 4.4 3.5 - 5.0 mEq/L [facility] Chloride 99 98 - 112 mEq/L [facility] CO2 22 (L) 24 - 31 mEq/L [facility] Anion gap 15@ANIO 7 - 15 mEq/L [facility] BUN 21 8 - 23 mg/dL [facility] Creatinine 1.64 (H) 0.70 - 1.20 mg/dL [facility] Glucose 258 (H) 65 - 99 mg/dL [facility] Calcium 9.8 8.8 - 10.2 mg/dL [facility] Specimen Plasma specimen Performing Organization Address [facility] Phon e Number [facility] DEPARTMENT OF PATHOLOGY AND [address] [place], [place] [address] [address] [address] Cv stress test (09/27/2019 5:37 PM SALES AND MARKETING VICE PRESIDENT) Resting HR 95 [facility] MUSE Resting BP 119 [facility] Peak MET Achieved 1.0 [facility] MUSE Protocol Name REGADENO [facility] MUSE Time in Exercise 00:01:00 [facility] Phase Max Systolic BP 119 [facility] Max Diastolic BP 73 [facility]USE Max Heart Rate 103 [facility] Max Predicted Heart 140 [facility] M[facility] Rate Target HR Formula (220 - Age)*100% [facility] MUSE Test Indication CAD [facility] MUSE Stress Test -Waveform interpreted [facility] MUSE Impression in report associated with image study. No interpretation is provided as part of this Stress ECG report.- Target HR 140.00 bpm [facility] MUSE Specimen Narrative Performed At This result has an attachment that is no t available. Performing Organization Address City/State/ZIP Code Phon e Number [facility] MUSE [address] [place] [address] Nm myocardial perfusion imaging w tl-201 viability (09/27/2019 5:37 PM SALES AND MARKETING VICE PRESIDENT) Specimen Narrative Performed At This result has an attachment that is no t available. [facility] Nuclear Cardiology and Card iac CT [address] [place] [address] Myocardial Perfusion Imagin g Report Stress ECG tracings are available in MUSE, EP IC and CV Web All ECG interpretations are included in this report Pat.Name: DEMETRIUS SARMIENTO Pat.ID: [id number] .Date: 09/27/2019 Refer.MD: JAYSON AGUILAR MD Exam Time: 10:43:00 AM Study Type:Myocardial Perfusion Imaging Height: 67in Age: 6 1940,79Y Sex: MALE BP: 119/73 HR: 98 bpm Nuclear Tech:JAYA Barrett, ARRT/Peyman matthews FINANCIAL ADVISOR TRAINEE Pat. Stat.:Inpatient Nuclear Event ID:[id number] Order ID: [id number] Reason for Study:CAD, unspecified* History / Clinical:Congestive [...] Radiology Results In - 2018 6:18 PM [facility] Nuclear Cardiology and Cardiac CT [address] [id number] Myocardial Perfusion I maging Report Stress ECG tracings are available in [employer] All ECG interpretations are in cluded in this report Pat.Name: DEMETRIUS SARMIENTOI D: [id number] .Date: 09/27/2019 Refer.MD: JAYSON AGUILAR MD Exam Time: 10:43:00 AM Study Type:Myocardial Perfusion Imaging Height: 67in Age: 6 1940,79Y Sex: MALE BP: 119/73 HR: 98 bpm Nuclear Tech:Lynn Wagoner, FINANCIAL ADVISOR TRAINEE, ARRT/Peyman Dumont [facility] Pat. Stat.:Inpatient Nucle ar Event ID:[id number] Order ID: [id number] Reason for Study:CAD, unspecified* History / Clinical:Congestive [...] PM Ramos Sanders MD Performing Organization Address [facility] [address] [place] [address] Activated clotting time (09/26/2019 5:40 PM SALES AND MARKETING VICE PRESIDENT)Only the most recent of5 resultswithin the time period is included. Activated clotting 169 (H) 96 - 152 sec [facility] Comment: HOSPITAL Meter ID: [id number] Entry Tech: José Luis Zavala Specimen Performing Organization Address [facility] Phon e Number [facility] DEPARTMENT OF PATHOLOGY AND [address] [place] [phone] GENOMIC MEDICINE [address] [address] brine room laborer procedure (09/26/2019 4:54 PM SALES AND MARKETING VICE PRESIDENT) Specimen Narrative Performed At This result has an attachment that is no t available. CARDIAC CATHETERIZATION PROCEDURE NOTE [facility] PROCEDURES PERFORMED 1. Left Heart Catheterization (LHC) 2. Selective Coronary Angiography (SCA) 3. LV pressures without ventriculogram. TALENT ACQUISITION SOURCER Jono Prieto, Cable Tool Operator GARMENT WORKER Joleen Borrego ANESTHESIA USED Local 2% lidocaine, Conscious Sedation DESCRIPTION OF PROCEDURE The procedure was described to the patient including b enefits, risks, and alternatives to the procedure. The patient confirmed understanding and signed the informed consent. The patient was brought to labor trainer, room [address] [facility]. Patient was prepped a nd draped in sterile fashion. Conscious sedation provided to patient throug hout procedure with appropriate monitoring. The right common femoral artery (OUTSOLE TACKER) was palpated and the region above the artery was anesthetized with 2% local lidocaine. Using micropuncture technique and fluoroscopic guidance, arterial access w as obtained in the right OUTSOLE TACKER and a 4F sheath was placed without [...] Transferred in stable condition Performing Organization Address City/State/ZIP Code Phon e Number [facility] [address] [place] [address], [place] Echocardiogram complete w contrast and 3D if needed (09/26/2019 11:36 AM SALES AND MARKETING VICE PRESIDENT) Specimen Narrative Performed At [facility] Echo cardiography Report [address] [facility], [place] [address] Pat.Name: DEMETRIUS SARMIENTO Pat.ID: [id number] .Date: 09/26/2019 Refer.MD: JONO PRIETO MD Exam Time: 10:57:00 AM Study Type:Ro utine Echo Height: 67in Weight: 174lb BSA: 1.91 m2 Ag e: 1940,79Y Sex: MALE BP: 100/66 HR: 87 bpm Sonogrphr: VIOLETTE Polanco; Cleo Delong i (Student) Pat. Stat.:Inpatient Room: A746 Study Status:Final Echo Event ID:[id number] Order ID: [id number] Reason for Study:NSTEMI, CHF History / Clinical:Congestive [...] PA systolic pressure. MEASUREMENTS: 2D Parasternal [place] Ao An 2.4 cm LVPWd 1.1 cm [...] Radiology Results In - 2018 1:45 PM SALES AND MARKETING VICE PRESIDENT Echocardiography Report [address] [place] [address] Pat.Name: DEMETRIUS SARMIENTO Pat.I D: [id number] .Date: 09/26/2019 Refer .MD: JONO PRIETO MD Exam Time: 10:57:00 AM Study Type:Routine Echo Height: 67in Weigh t: 174lb BSA: 1.91 m2 Age: 6 1940,79Y Sex: MALE BP: 100/66 HR: 87 bpm Sonogrphr: VIOLETTE Polanco; Cleo Delong i (Student) Pat. Stat.:Inpatient Room: [facility] Study Status:Final Echo Event ID:[id number] Order ID: [id number] Reason for Study:NSTEMI, CHF History / Clinical:Congestive [...] PA systolic pressure. MEASUREMENTS: 2D Parasternal [place] Ao An 2.4 cm LVPW d 1.1 [...] PM Monique Parra M.D. Performing Organization Address [facility] [facility] [address] [place] [address] Anti Xa, unfractionated (09/26/2019 6:30 AM SALES AND MARKETING VICE PRESIDENT)Only the most recent of4 resultswithin the time period is included. Anti Xa, 0.23 (L)Comment: 0.30 - 0.70 [place] unfractionated Therapeutic Range: U/mL ALEVISM 0.30 - 0.70 U/mL HOSPITAL Specimen Blood Performing Organization Address [facility] Phon e Number [facility] DEPARTMENT OF PATHOLOGY AND [address] [place] [address] [phone] [address] Magnesium level (09/26/2019 4:00 AM SALES AND MARKETING VICE PRESIDENT)Only the most recent of3 resultswithin the time period is included. Pathologist [facility] nature Magnesium 2.0 1.6 - 2.4 mg/dL [facility] L Specimen Plasma specimen Performing Organization Address [facility] Phon e Number [facility] DEPARTMENT OF PATHOLOGY AND [address] [place] [address] [phone] [address] Troponin (09/25/2019 2:39 PM SALES AND MARKETING VICE PRESIDENT)Only the most recent of3 resultswithin the time period is included. Troponin 1.070 (H) 0.000 - 0.040 [facility] Comment: ng/mL [facility] changed methodology eff ective: 03/22/2019 at 10:00 am The new method has a 99th percentile cutoff of 0.040 n g/mL Specimen Plasma specimen Performing Organization Address [facility] Phon e Number [facility] DEPARTMENT OF PATHOLOGY AND [address] [place], [place] [phone] [facility] [address] [place] [address] Potassium level (09/25/2019 2:39 PM SALES AND MARKETING VICE PRESIDENT) Pathologist [facility] nature Potassium 3.7 3.5 - 5.0 mEq/L [facility] L Specimen Plasma specimen Performing Organization Address [facility] Phon e Number [facility] DEPARTMENT OF PATHOLOGY AND [address] [place], [place] [phone] [facility] [address] [place] [address] XR Chest 1 Vw Portable (09/25/2019 9:41 AM SALES AND MARKETING VICE PRESIDENT) Specimen Narrative Performed At XR CHEST 1 VW PORTABLE [facility] CLINICAL INDICATION: R O pneumonia COMPARISON: 12/14/2018 IMPRESSION: Heart is normal in size with mild atherosclerosis of t he aorta. There is minimal left basilar atelectasis with questionable tra ce fluid. There is no pneumothorax. Bones demonstrates stable degenerativ e changes with thoracic stimulator lead noted. No acute change. *[facility]-[id number] Procedure Note Hm Interface, Radiology Results Incoming - 09/25/2019 10:13 AM SALES AND MARKETING VICE PRESIDENT XR CHEST 1 VW PORTABLE CLINICAL INDICATION: R O pneumonia COMPARISON: 12/14/2018 IMPRESSION: Heart is normal in size with mild athero sclerosis of the aorta. There is minimal left basilar atelectasis with questionable trace fluid. There is no pneumothorax. Bones demonstrates stable degenerative changes with thoracic stimulator lead noted. No acute change. *[facility]-[id number] Performing Organization Address [facility] Phon e Number [facility] [address] [place] [address] CT Head Wo Contrast (09/25/2019 8:50 AM SALES AND MARKETING VICE PRESIDENT) Specimen Narrative Performed At EXAMINATION: CT HEAD WO CONTRAST [facility] CLINICAL HISTORY: Altered level of consc iousness [...] of brain are again noted with mil [id number]-[id number] chronic small vessel ischemic changes. No air-fluid level is seen in the visualized portions of the paranasal sinuses. Mastoid air cells are clear. IMPRESSION: No acute intracranial abnormality identi fied. No significant interval change. [facility]-[id number] Procedure Note Hm Interface, Radiology Results Incoming - 09/25/2019 8:57 AM SALES AND MARKETING VICE PRESIDENT EXAMINATION: CT HEAD WO CONTRAST CLINICAL HISTORY: [...] changes of brain are again noted with kwnm-ec-[id number] chronic small vessel ischemic changes. No air-fluid level is seen in the visual ized portions of the paranasal sinuses. Mastoid air cells are clear. IMPRESSION: No acute intracranial abnormality identi fied. No significant interval change. [facility]-[id number] Performing Organization Address City/[facility] Code Phon e Number [facility] [address] [place] [phone] Arterial blood gas (09/25/2019 8:30 AM SALES AND MARKETING VICE PRESIDENT) Pathologist Sig nature pH, arterial 7.44 7.35 - 7.45 [facility] pCO2, arterial 41 35 - 45 mmHg [facility] pO2, arterial 100 (H) 80 - 90 mmHg [facility] Bicarbonate, 27.4 21.0 - 28.0 [facility] arterial mmol/L HOSPITAL Base excess, 3 (H) -2 - 2 mEq/L [facility] O2 saturation, 98 95 - 100 % [facility] Specimen Blood Performing Organization Address City/[facility] Phon e Number [facility] DEPARTMENT OF PATHOLOGY AND [address] [place] [phone] [facility] [address] [address] Partial thromboplastin time, activated (09/25/2019 6:20 AM SALES AND MARKETING VICE PRESIDENT)Only the most recent of2 resultswithin the time period is included. PTT 61.6 (H) 23.0 - 36.0 [facility] Comment: [facility] HOSPITAL PTT therapeutic range for unfractionated heparin is 61.0-112.0 seconds which corresponds to Anti-Xa 0.3-0.7 U/ml. Specimen Blood Performing Organization Address City/[facility] Phon e Number [facility] DEPARTMENT OF PATHOLOGY AND [address] [place] [address] [phone] [address] Thyroid stimulating hormone (09/25/2019 6:20 AM SALES AND MARKETING VICE PRESIDENT) Pathologist Sig nature TSH 2.58 0.27 - 4.20 uIU/mL [facility] ITAL Specimen Plasma specimen Performing Organization Address [facility] Phon e Number [facility] DEPARTMENT OF PATHOLOGY AND [address] [place] [address] [phone] [address] CBC hemogram (09/24/2019 9:10 PM SALES AND MARKETING VICE PRESIDENT) Pathologist Sig nature WBC 7.82 4.50 - 11.00 k/uL [facility] RBC 4.34 (L) 4.40 - 6.00 m/uL [facility] HGB 12.7 (L) 14.0 - 18.0 g/dL [facility] HCT 38.5 (L) 41.0 - 51.0 % [facility] MCV 88.7 82.0 - 100.0 fL [facility] MCH 29.3 27.0 - 34.0 pg [facility] MCHC 33.0 31.0 - 37.0 g/dL [facility] RDW - SD 45.3 37.0 - 55.0 fL [facility] MPV 11.6 8.8 - 13.2 fL [facility] Platelet count 137 (L) 150 - 400 k/uL [facility] Nucleated RBC 0.00 /100 WBC [facility] Specimen Blood Performing Organization Address [facility] Phon e Number [facility] DEPARTMENT OF PATHOLOGY AND [address] [place] [address] [phone] [address] Prothrombin time with INR (09/24/2019 9:00 PM SALES AND MARKETING VICE PRESIDENT) Prothrombin time 15.4 (H) 11.5 - 14.5 [facility] INR 1.2 [place] Comment: A[facility] The International Normalized Ratio (INR) is a [facility] monitoring tool for patients who are stable on oral anticoagulant therapy. An INR of 2.0-3.0 is suggested for deep vein thrombosis/pulmonary embolism. Specimen Blood Performing Organization Address City/[facility] Phon e Number [facility] DEPARTMENT OF PATHOLOGY AND [address] [place] [address] [phone] [address] T4, free (09/24/2019 9:00 PM SALES AND MARKETING VICE PRESIDENT) Pathologist Sig nature T4, free 1.3 0.9 - 1.7 ng/dL [facility] L Specimen Plasma specimen Performing Organization Address [facility] Phon e Number [facility] DEPARTMENT OF PATHOLOGY AND [address] [place] [address] [phone] [address] Lipid panel (09/24/2019 9:00 PM SALES AND MARKETING VICE PRESIDENT) Cholesterol 126 <200 mg/dL [facility] Triglycerides 92 <150 mg/dL [facility] HDL cholesterol 67 >40 mg/dL [facility] LDL cholesterol 60Comment: Result <100 mg/dL [place] obtained by direct A[facility] LDL measurement [facility] Lipid panel SeeBelow [place] interpretation Comment: [facility] Total Cholesterol (mg/dL) HOSPIT [facility] <200 Desirable [...] mg/dL) Specimen Plasma specimen Performing Organization Address City/State/ZIP Code Phon e Number [facility] DEPARTMENT OF PATHOLOGY AND [address] [place], [place] [address] GENOMIC MEDICINE [facility] [address] [place] [address] after 09/24/2019 Insurance Payer Benefit Plan / Subscriber ID Effective Dates Phone Addre ss Type Group MEDICAID MEDICAID [id number] 2016-Present [place] [facility] MEDICARE [facility] DUAL COMPLETE [id number] 2019-Present [facility] Advance Directives For more information, please contact: [phone] Type Date Recorded Patient Firer Automatic Stoker Explanati on Advance Directives, Living Will 11/17/2018 12:57 PM and Medical Power of Glass Deposition Tender Code Status Date Activated Date Inactivated Comments Full Code 12/13/2018 10:08 PM 12/18/2018 3:30 PM Code Status decision reached by: Patient
--- OUTSIDE RECORDS SUMMARY | 2020-09-24 01:14 | XMS REPORT | Continuity of Care Document ---
:[address] [facility] t Address [address] [place] [address] Care Team Providers Name Role Phone Trang WOOTEN Primary Care Physician Vidal WOOTEN, S Attending Clinician Umang WOOTEN Attending Clinician Charisma WOOTEN, T Attending Clinician Ariel STONER Attending Clinician Mars WOOTEN, O. Attending Clinician Trang WOOTEN Attending Clinician Payers Payer Name Policy Type Policy Effective Date Expiration Date Sour Number MEDICAIDMEDICAIDx [id number] 2016 [employer] [id number] 2015 00:00:[address] -PresentMedicaid UHC MEDICAREUHC [id number] 2019 [employer] DUAL COMPLETE 00:00:00 Anabaptist WXRrpzcs70504/11/17 019-PresentHMO Problems Condition Condition Condition Status Onset Resolution Last Treating Co mments Source Name Details Category Date Date Treatment Clinician Date Chest pain Chest pain Disease Active 2018-11 H grecia 11-24 Methodi 00:00: st 00 CHF CHF Disease Active [employer] exacerbati exacerbati 12-13 Me thodi on on 00:00: st 00 Essential Essential Disease Active Halina ston hypertensi hypertensi 12-13 Me thodi on on 00:00: st 00 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 12-13 Method i mellitus mellitus [...] disturbanc e e Failed 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 Routine Routine Problem Active [facility] On home On home Problem Active [facility] oxygen oxygen [facility] therapy therapy [facility] Coronary Coronary Problem Active [facility] artery artery [facility] - disease disease [facility] involving involving [place] [facility] coronary coronary ent artery of artery of Clin ics [place] heart, heart, angina angina presence presence unspecifie unspecifie d d S/P S/P Problem Active [facility] coronary coronary [facility] - artery artery Memoria stent stent l placement placement Outp ati ent Clinics 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 Luke s - diabetes diabetes Memori a mellitus mellitus l with with Outpati hyperglyce hyperglyce en t [facility] Need for Need for Problem Active [facility] dental dental [facility] care care [facility] l Outpati ent Clinics History of History of Problem Active [facility] prostate prostate [facility] - cancer cancer [facility] Alzheimer Alzheimer Problem Active [facility] disease disease [facility] Diabetes Diabetes [facility] Heart Heart Problem Active [facility] disease disease [facility] Heart Heart Problem Active [facility] attack attack [facility] Blurry Blurry Problem Active [facility] vision, vision, [facility] - bilateral bilateral Manjit greg l [facility] ent [facility] Chronic Chronic Problem Active [facility] pain 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 Family History Family Member Diagnosis Comments Start Date Stop Date Source Natural father Heart disease [employer] Anabaptist Natural father Seizures [facility] thodist Natural mother Alzheimer's disease H grecia Patel Natural mother Cancer [facility] thodist Social History Social Habit Start Date Stop Date Quantity Comments Source History of tobacco Current smoker Jim quentin Patel use Sex Assigned At [facility] ethodist Cigarettes smoked 2019-09-27 2019-09-27 [employer] Anabaptist current (pack per 00:00:00 00:00:00 day) - Reported Tobacco use and 2019-09-27 2019-09-27 Never used [facility] ethodist exposure 00:00:00 00:00:00 Alcohol intake 2019-09-27 2019-09-27 Current [facility] thodist 00:00:00 00:00:00 non-drinker of alcohol (finding) Smoking Status Start Date Stop Date Source Former smoker 2019-09-27 00:00:00 2019-09-27 00:00:00 [employer] [facility]ist Medications Ordered Filled Start Stop Current Ordering Indication Dosage Frequency Signature Comments Components Source Medication Medication Date Date Medication? Clinician (SIG) Name Name furosemide 2018-11 2019- No 40mg QD Take 40 mg Mathias (LASIX) 40 -13 11-13 by mouth Meth mercedes mg tablet 11:14: 00:[address] 15 :00 multivitami 2018-11 Yes 1{tbl} QD Take 1 [place] n 1-13 tablet by Marina (THERAGRAN) 11:14: mouth st tablet 11 nightly. traMADol 2018-11 Yes 50mg Take 50 mg Halina abad (ULTRAM) 50 1-13 by mouth. Met hodi mg tablet 11:14: st 11 aspirin 2018-11 Yes 81mg QD Take 81 mg [place] (ECOTRIN) -13 by mouth Method i 81 MG 11:14: daily. st enteric 11 coated tablet atorvastati 2018-11 Yes 40mg QD Take 40 mg Mathias n (LIPITOR) -13 by mouth Meth mercedes 40 MG 11:14: nightly. st tablet 11 insulin 2018-11 Yes 30U QD Inject 30 [place] GLARGINE 1-13 Units Methodi (LANTUS) 11:14: under the st 100 unit/mL 11 skin injection nightly. (vial) isosorbide 2018-11 Yes 60mg QD Take 60 mg [place] mononitrate 11-28 by mouth Meth mercedes (IMDUR) 60 11:14: daily. st MG 24 hr 11 tablet potassium 2018-11 Yes 10meq QD Take 10 [place] chloride 1-13 mEq by Methodi (K-DUR) 10 11:14: mouth st MEQ CR 11 daily. tablet glimepiride 2018-11- No 1mg QD Take 1 mg Mathias (AMARYL) 1 11-28 1113 by mouth Meth mercedes MG tablet 09:13: [...] coated daily for tablet 90 days. atorvastati 2018-11- No 40mg QD Take 1 Halina ston n (LIPITOR) 11-28 12-13 tablet (40 M ethodi 40 MG 00:00: 23:59 mg total) st tablet 00 :00 by mouth nightly for 30 days. docusate 2018-11- No 100mg Q.5D Take 1 [place] sodium 11-28-13 capsule Methodi (COLACE) 00:00: 23:59 ([address] 100 MG 00 :00 total) by capsule mouth 2 (two) times a day for 30 days. insulin 2018-11- No 30U QD Inject 30 [place] GLARGINE 11-28 Units Methodi (LANTUS) 00:00: 23:[address] 100 unit/mL 00 :00 skin injection nightly (vial) for 30 days. insulin 2018-11- No 4U Q.[id number] Inject 4 [employer] lispro 11-28 [id number] Units Metho di (HumaLOG) 00:00: 23:[address] 100 unit/mL 00 :00 skin 3 injection (three) times a day with meals for 30 days. ipratropium 2018-11- No 3mL Q.96061010 Take 3 mL [employer] -albuterol 11-28 [id number] by Me thodi (DUO-NEB) 00:00: 23:59 3D [...] for 30 days. Lactobacill 2018-11- No 1{tbl} Q.54154340 Take 1 [employer] us 11-28 [id number] tablet by Met jamey armijooph-L.b 00:00: 23:[address] ulgar 00 :00 (three) (FLORANEX) times a 1 million day for 30 cell tablet days. lisinopril 2018-11- No 5mg QD Take 1 [place] (PRINIVIL) 11-28 tablet (5 Met hodi 5 mg tablet 00:00: 23:59 mg total) st 00 :00 by mouth daily for 30 days. metoprolol 2018-11- No 12.5mg Q.5D Take 0.5 Mathias tartrate 11-28 tablets Methodi (LOPRESSOR) 00:00: 23:59 (12.5 mg s t 25 mg 00 :00 total) by tablet mouth 2 (two) times a day for 30 days. spironolact 2018-11- No 12.5mg QD Take 0.5 Mathias one -13 12-13 tablets Methodi (ALDACTONE) 00:00: 23:59 (12.5 mg [...] amoxicillin 2018-11- No 500mg Q.5D Take 1 Jim irby 11-28 11-17 tablet Methodi clavulanate 00:00: 23:59 ([address] (AUGMENTIN) 00 :00 total) by 500-125 mg mouth 2 per tablet (two) times a day for 4 days. potassium 2018-11- No 20meq Q.5D Take 2 [place] chloride 11-28 11-13 capsules Method i (MICRO-K) 00:00: 00:00 ([address] 10 MEQ CR 00 :00 total) by capsule mouth 2 (two) times a day for 30 days. pregabalin 2019- No 150mg Q.07255420 Take 1 [employer] (LYRICA) 6-20 06-19 [id number] capsule M ethodi 150 MG 00:00: 23:59 [...] st tablet 00 DAILY AT NIGHT acetaminoph 2019- No 1{tbl} Q8H Take 1 [place] en-codeine 11-17- tablet by Met concepcion (TYLENOL 00:00: 23:[address] WITH 00 :00 every 8 CODEINE #3) (eight) 300-30 mg hours as per tablet needed for moderate pain. Potassium Potassium Yes Anneliese [address] [facility] Chloride Chloride Millender with food [facility] Tylenol # 3 Tylenol # 3 Yes Anneliese one tab [facility] Millender [facility] Vitamin D-3 Vitamin D-3 Yes [...] [facility] Millender [facility] Isosorbide Isosorbide Yes Anneliese [address] Mononitrate Mononitrate Millender in the [facility] - [facility] Lyrica Lyrica Yes Anneliese 1 capsule [facility] Millender [facility] Vital Signs Vital Name Observation Time Observation Value Comments Source Heart rate 2019-09-28 08:07:00 84 /min Stew Patel Respiratory rate 2019-09-28 08:07:00 18 /min Johnnie Patel Oxygen saturation in 2019-09-28 08:04:00 96 /min Stew Patel Arterial blood by Pulse oximetry Systolic blood 2019-09-28 07:41:28 109 mm[Hg] Ari calderon [facility]ist pressure Diastolic blood 2019-09-28 07:41:28 71 mm[Hg] Kezia klein [facility]ist pressure Body temperature 2019-09-28 07:41:28 36.28 Priyanka [...] Jayson Aguilar POC GLUCOSE 2019-09-27 21:34:00 Jayson Aguilar CV STRESS TEST NUCLEAR 2019-09-27 17:37:43 Jono Prieto on [facility]ab[facility]ist CARDIO NM MYOCARDIAL PERFUSION 2019-09-27 17:37:43 Jono Prieto IMAGING W TL-201 VIABILITY POC GLUCOSE 2019-09-27 17:03:00 Jayson Aguilar POC GLUCOSE 2019-09-27 12:00:00 Jayson Aguilar POC GLUCOSE 2019-09-27 08:55:00 Jayson Aguilar POC GLUCOSE 2019-09-26 20:20:00 Jayson Aguilar ACTIVATED CLOTTING TIME 2019-09-26 17:40:00 Jayson Aguilar POC GLUCOSE 2019-09-26 17:20:00 Jayson Aguilar ACTIVATED CLOTTING TIME 2019-09-26 17:16:00 Jayson Aguilar CV SELECTIVE CORONARY 2019-09-26 16:54:09 Jono Prieto n Anab[facility]ist ANGIOGRAPHY CV LEFT HEART CATH 2019-09-26 16:54:09 Jono Prieto ethodist CV UNLISTED CARGO HANDLER 2019-09-26 16:54:09 Jono Prieto PROCEDURE ACTIVATED CLOTTING TIME 2019-09-26 16:51:00 Jayson Aguilar ACTIVATED CLOTTING TIME 2019-09-26 16:42:00 Jayson Aguilar ACTIVATED CLOTTING TIME 2019-09-26 16:30:00 Jayson Aguilar POC GLUCOSE 2019-09-26 13:33:00 Jayson Aguilar TTE COMPLETE, WO CONTRAST, 2019-09-26 11:36:36 Jono Prieto W DOPPLER ([id number]) POC GLUCOSE 2019-09-26 08:13:00 Jayson Aguilar ANTI XA, UNFRACTIONATED 2019-09-26 06:30:00 Jayson Aguilar BASIC METABOLIC PANEL 2019-09-26 04:00:00 James Acosta n [facility] MAGNESIUM LEVEL 2019-09-26 04:00:00 Jamse Acosta Meth odist ESTIMATED GFR 2019-09-26 04:00:00 Jaysno Aguilar POC GLUCOSE 2019-09-25 20:45:00 Jayson Aguilar POC GLUCOSE 2019-09-25 17:15:00 Jayson Aguilar ANTI XA, UNFRACTIONATED 2019-09-25 14:39:00 Jayson Aguilar TROPONIN 2019-09-25 14:39:00 James Acosta Meth odist MAGNESIUM LEVEL 2019-09-25 14:39:00 Jayson Aguilar POTASSIUM LEVEL 2019-09-25 14:39:00 Jayson Aguilar XR CHEST 1 VW PORTABLE 2019-09-25 09:41:00 James Acosta on [facility]ab[facility]ist POC GLUCOSE 2019-09-25 09:03:[address] [...] Planned Date Details Comments Source Future Scheduled 2020-06-16 INFLUENZA VACCINE Housto kvng [facility]ist Test 00:00:00 [code = INFLUENZA VACCINE] Future Scheduled 2020-03-08 DIABETES: RETINAL EYE Ho uskristy [facility] Test 00:00:00 EXAM [code = DIABETES: RETINAL EYE EXAM] Future Scheduled 2004 65+ PNEUMOCOCCAL Setw [facility] Test 00:00:00 VACCINE (2 of 2 - PPSV23) [code = 65+ PNEUMOCOCCAL VACCINE (2 of 2 - PPSV23)] Future Scheduled 1989 SHINGLES VACCINES (#1) H grecia [facility] Test 00:00:00 [code = SHINGLES VACCINES (#1)] Future Scheduled 1949 DIABETIC FOOT EXAM Kezia klein [facility] Test 00:00:00 [code = DIABETIC FOOT EXAM] Encounters Start End Encounter Admission Attending Care Care Encounter Source Date/Time Date/Time Type Type Clinicians Facility Department ID 2020-06-26 2020-06-26 Emergency Yarine, [facility] [id number] 03:50:00 06:45:00 Martha Cortez [id number] [place] 4.2.7.2.686 [place] [id number] 2020-05-24 2020-05-24 Emergency Heck, [facility] [id number] 06:40:47 10:54:00 Charanjit Cortez [id number] [place] 4.2.7.2.686 [place] [id number] 2020-03-29 2020-03-29 Letter Jamel Zafar [id number] 00:00:00 00:00:00 (Out) Kelvin Sotelo 350.1.13.10 [facility] [id number] [id number] 2020-03-26 2020-03-26 Transition Sharee George [id number] 00:00:00 00:00:00 of Care Sherrell Trent [id number] [place] 4.2.7.2.686 [id number] 2019-10-07 2019-10-07 [facility] [id number] [facility] 10:48:00 10:48:00 [facility] 2019-10-05 2019-10-05 [facility] [id number] [address] 16:06:00 16:06:00 [facility] Medicine Outpati ent Clinics 2019-07-12 2019-07-12 [facility] [id number] 16:24:00 16:24:00 [facility] Medicine Outpati ent Clinics 2019-07-06 2019-07-06 [facility] [id number] 14:00:00 14:00:00 [facility] Results Test Description Test Time Test Comments Results Result Comments Source POC glucose 2019-09-28 07:44:37 Test Item Value Reference Range Interpretation Comme nts POC glucose (test code = 219 mg/dL 65-99 H [facility] Notified RNMeter ID: [id number]) [id number] tor: Madonna Proctor Lab Interpretation (test code = Abnormal 85294-3) Stew BarrettistBasic metabolic [id number] 05:58:14 Test Item Value Reference Range Interpretation Comments Sodium (test code = 2951-2) 136 135- 148 mEq/L Potassium (test code = 2823-3) 4.4 3.5- 5.0 mEq/L Chloride (test code = 2075-0) 99 98- 112 mEq/L CO2 (test code = 2027-9) 22 24- 31 mEq/L L Anion gap (test code = 01447-7) 15@ANIO 7- 15 mEq/L BUN (test code = 3094-0) 21 mg/dL 8-23 Creatinine (test code = 2160-0) 1.64 mg/dL 0.7-1.2 H Glucose (test code = 2345-7) 258 mg/dL 65-99 H Calcium (test code = 21523-6) 9.8 mg/dL 8.8-10.2 Lab Interpretation (test code = Abnormal 33506-2) Stew MethodistEstimated [id number] 05:58:14 Test Item Value Reference Range Interpretation Comments Estimated GFR (test 39 mL/min/1.73 m2 Adela ferrer Units code = 5488) InterpretationG 1 >=90 Naty l or highG2 60-89 Mildly decrease dG3a 45-59 Mil dly to moderately decr cjjdnO6w 30-44 Moderately to s everely decreasedG4 15-29 Severe ly decreasedG5 <15 Kidney charly lureThe eGFR was calcul ated using the Chron ic Kidney Disease Epidemiology Collaboration ( CKD-EPI) equation. Interpretation is based on recommendati ons of the National Ki dney Foundation-Kidn ey Disease Outcome s Quality Initiat stefany (NKF-KDOQI) pub lished in 2013. Lab Interpretation Abnormal (test code = 98178-2) Stew MethodistCBC with platelet and yhpremuyzhce8123-74-49 05:28:13 Test Item Value Reference Range Interpretation Comments WBC (test code = 98779-3) 7.11 4.50- 11.00 k/uL RBC (test code = 19645-3) 4.17 m/uL 4.4-6 L HGB (test code = 718-7) 12.5 g/dL 14-18 L HCT (test code = 4544-3) 37.1 % 41-51 L MCV (test code = 787-2) 89.0 fL 82-100 MCH (test code = 785-6) 30.0 pg 27-34 MCHC (test code = 786-4) 33.7 g/dL 31-37 RDW - SD (test code = 44.6 fL 37-55 58203-9) MPV (test code = 70778-4) 11.3 fL 8.8-13.2 Platelet count (test code 167 150- 400 k/uL = 51208-8) Nucleated RBC (test code 0.00 /100 WBC = 79852-0) Neutrophils (test code = 67.8 % 39-69 47651-2) Lymphocytes (test code = 18.8 % 25-45 L 38944-8) Monocytes (test code = 9.6 % 0-10 95555-3) Eosinophils (test code = 3.1 % 0-5 39099-2) Basophils (test code = 0.4 % 0-1 68421-6) Immature granulocytes 0.3 % 0-1 "Immat ure (test code = 09734-2) granul ocytes" (promyelocytes, myelocytes, metamyelocytes) Lab Interpretation (test Abnormal code = 36257-4) [facility] myocardial perfusion imaging w tl-201 [id number] 18:18:00Interface, Radiology Results In - 09/27/2019 6:18 PM ENGLISH ADJUNCT FACULTY Nuclear Cardiology and Cardiac CT [address] [place] [address] Myocardial Perfusion Imaging Report Stress ECG tracings are available in [employer] and [employer] Web All ECG interpretations are included in this reportPat.Name: TINY SARMIENTO Jenny Olsen.ID: [id number] .Date: 09/27/2019 Refer.MD: JAYSON AGUILAR MDExam Time: 10:43:00 AM Study Type:Myocardial Perfusion ImagingHeight: 67inDOB Age: 6 1940,79Y Sex: MALE BP: 119/73 HR: 98 bpm Nuclear Tech:DENISE BarrettMT, PHOEN[facility] MEMORIAL HOSPITALKelvin/DENISE MilliganArnot Ogden Medical Centerkelvin. Stat.:Inpatient Nuclear Event ID:[id number] Order ID: [id number] Reason for Study:CAD, unspecified* History / Clinical:Congestive [...] ST segment change occurredwith stress.Signed 09/27/2019 06:18 PMRamos Sanders MDSullivan County Memorial Hospitaljenniffer MethodistCv stress [id number] 15:36:23 Test Item Value Reference Range Interpretation Comments Resting HR (test code 95 = 6468812559) Resting BP (test code 119 = 4681705026) Peak MET Achieved 1.0 (test code = 7657172788) Protocol Name (test REGADENO code = 5487802506) Time in Exercise 00:01:00 Phase (test code = 7907454231) Max Systolic BP (test 119 code = 9152482810) Max Diastolic BP 73 (test code = 7278678779) Max Heart Rate (test 103 code = 5951872588) Max Predicted Heart 140 Rate (test code = 8381648950) Target HR Formula (220 - Age)*100% (test code = 8836278793) Test Indication (test CAD code = 9405220129) Stress Test -Waveform interpreted in Impression (test code report associated with = 0996720111) image study. No interpretation is provided as part of this Stress ECG report.-Electronically Signed By Ramos Sanders MD ([id number]), assistant editor Darshana Tomlin ([id number]) on 09/27/2019 3:36:20 PM Target HR (test code 140.00 bpm = 5996326812) [facility] gaieimqpk1398-19-35 08:34:27CARDIAC CATHETERIZATION PROCEDURE NOTE PROCEDURES PERFORMED 1. Left Heart Catheterization (LHC)2. Selective Coronary Angiography (SCA)3. LV pressures without ventriculogram. PRIMARY OPERATORMohammed Attar, Bottom Worker FIRST ASSISTANTJoleen Borrego ANESTHESIA USEDLocal 2% lidocaine, Conscious Sedation DESCRIPTION OF PROCEDUREThe procedure was described to the patient including benefits, risks, and alternatives to the procedure. The patient confirmed understanding and signed the informed consent. The patient was brought to pharmaceutical laboratory technician, room 5 of [facility]. Patient wasprepped and draped in sterile fashion. Conscious sedation provided to patient throughout procedure with appropriate monitoring. The right common femoral artery (CORPORATE RECEPTIONIST) was palpated and the region above the artery was anesthetized with 2% local lidocaine. Using micropuncture technique and fluoroscopic guidance, arterial access was obtained in the right CORPORATE RECEPTIONIST and a 4F sheath was placed without [...] Fellow: Joleen Borrego EQUIPMENT/ANTICOAGULATION: Right Common Femoral Kkpsrt9P Sheath XB LAD 3.5 and 3DRC Guide [...] modification. Cardiac rehabilitation. 4. Transferred in stable conditionBe[facility] Afb MethodistActivated clotting [id number] 17:46:59 Test Item Value Reference Range Interpretation Comments Activated clotting time 169 96- 152 sec H Mete r ID: (test code = 5298) [id number] perator: José Luis calderon Lab Interpretation (test Abnormal code = 51985-7) [employer] MethodistEchocardiogram complete w contrast and 3D if eslfkg0903-19-02 13:45:00Interface, Radiology Results In - 09/26/2019 1:45 PM ENGLISH ADJUNCT FACULTY Echocardiography Report [address] [place] [address] Pat.Name: TINY SARMIENTO Pat.ID: [id number].Date: 09/26/2019 Refer.MD: JONO PRIETO MD Exam Time: 10:57:00 AM Study Type:Routine Echo Height: 67in Weight: 174lb BSA: 1.91 m2 Age: 6 1940,79Y Sex: MALE BP: 100/66 HR: 87 bpm Sonogrphr: Milana Emerson RCS; Cleo Martins (Student)Pat. Stat.:Inpatient Room: A746 Study Status:Final Echo Event ID:[id number] Order ID: [id number] Reason for Study:NSTEMI, CHF History / Clinical:Congestive [...] PA systolic pressure. MEASUREMENTS: ----- 2DParasternal Long W[place] Ao An 2.4 cm LVPWd 1.1 cm [...] Signed 09/26/2019 01:45 Desmond Jones MethodistAnti Xa, [id number] 08:01:38 Test Item Value Reference Range Interpretation Comments Anti Xa, unfractionated 0.23 U/mL 0.3-0.7 L Ther apeutic Range: (test code = 3274-8) 0.30 - 0.70 U/mL Lab Interpretation (test Abnormal code = 85266-3) Mathias MethodistMagnesium [id number] 07:46:56 Test Item Value Reference Range Interpretation Comments Magnesium (test code = 59596-5) 2.0 mg/dL 1.6-2.4 Stew MethodistPotassium [id number] 17:08:27 Test Item Value Reference Range Interpretation Comments Potassium (test code = 2823-3) 3.7 3.5- 5.0 mEq/L Stew DgaggqgkbRqxjalkg0629-67-31 15:31:08 Test Item Value Reference Range Interpretation Comments Troponin (test code = 1.070 ng/mL 0-0.04 H [place] kvng Anab[facility]ist 95677-0) Laboratories anged methodology effective: 2018 at 10:00 amThe new method has a 99 th percentile cuto ff of 0.040 ng/mL Lab Interpretation Abnormal (test code = 74154-6) Mathias MethodistXR Chest 1 Vw [id number] 10:10:48Hm Interface, Radiology Results Incoming - 09/25/2019 10:13 AM CSTXR CHEST 1 VW PORTABLECLINICAL INDICATION: R O pneumoniaCOMPARISON: 12/14/2018IMPRESSION:Heart is normal in size with mild atherosclerosis of the aorta. There is minimal left basilar atelectasis with questionable trace fluid. There is no pneumothorax. Bones demonstrates stable degenerative changes with thoracic stimulator lead noted.No acute change.*[facility]-ID93FYLBAqnnqst MethodistCT Head Wo Mugpltlw5427-87-01 08:54:41Hm Interface, Radiology Results Incoming - 09/25/2019 [...] changes of brain are again noted with zhzd-si-ptrupirq chronic smallvessel ischemic changes.No air-fluid level is seen in the visualized portions of the paranasal sinuses. Mastoid air cells are clear.IMPRESSION:No acute intracranial abnormality identified.No significant interval change.[facility]-[id number] MethodistArterial blood gas 2019-09-25 08:46:15 Test Item [...] 2708-6) Lab Interpretation (test code = Abnormal 56939-9) Mathias MethodistPartial thromboplastin time, [id number] 07:32:47 Test Item Value Reference Range Interpretation Comments PTT (test code = 61.6 23.0- 36.0 sec H PTT thera peutic range 78345-7) for unfractiona diamante heparin is61.0- 112.0 seconds which corresponds to Anti-Xa0.3-0.7 U/ml. Lab Interpretation Abnormal (test code = 56522-2) Mathias MethodistThyroid stimulating [id number] 07:21:26 Test Item Value Reference Range Interpretation Comments TSH (test code = 3016-3) 2.58 0.27- 4.20 uIU/mL Mathias MethodistT4, [id number] 01:38:43 Test Item Value Reference Range Interpretation Comments T4, free (test code = 3024-7) 1.3 ng/dL 0.9-1.7 [employer] MethodistLipid [id number] 01:17:04 Test Item Value Reference Interpretation Comments Range Cholesterol (test 126 mg/dL <200 code = 2093-3) Triglycerides (test 92 mg/dL <150 code = 2571-8) HDL cholesterol 67 mg/dL >40 (test code = 2085-9) LDL cholesterol 60 mg/dL <100 Result obtai radha by direct (test code = 2089-1) LDL anu surement Lipid panel SeeBelow Total Cholester ol (mg/dL) interpretation (test < 200 code = 18019-3) Desirable 200-239 Borderline -high >=240 Hi gh [...] ( >=200 mg/dL) Stew PatelProthrombin time with [id number] 22:27:00 Test Item Value Reference Range Interpretation Comments Prothrombin time (test 15.4 11.5- 14.5 sec H code = 5902-2) INR (test code = 1.2 The Interna tional 37869-8) Normalized Rati o (INR) is a therapeuti c monitoring tool for patients who ar e stable on oral anticoagulant t herapy. An INR of 2.0-3 .0 is suggested for d eep vein thrombosis/pulm onary embolism. Lab Interpretation Abnormal (test code = 32064-2) Stew Barrettzia health clinicCB [id number] 21:26:55 Test Item Value Reference Range Interpretation Comments WBC (test code = 58853-7) 7.82 4.50- 11.00 k/uL RBC (test code = 98254-9) 4.34 m/uL 4.4-6 L HGB (test code = 718-7) 12.7 g/dL 14-18 L HCT (test code = 4544-3) 38.5 % 41-51 L MCV (test code = 787-2) 88.7 fL 82-100 MCH (test code = 785-6) 29.3 pg 27-34 MCHC (test code = 786-4) 33.0 g/dL 31-37 RDW - SD (test code = 19883-7) 45.3 fL 37-55 MPV (test code = 54889-8) 11.6 fL 8.8-13.2 Platelet count (test code = 137 150- 400 k/uL L 66066-1) Nucleated RBC (test code = 0.00 /100 WBC 83698-2) Lab Interpretation (test code = Abnormal 41789-5) Stew Patel
[2020-09-24 02:05] LABS: Absolute Lymphocytes (CBC) 2.3 K/uL (0.7-4.9); Basophils % 0.9 % (0-1.3); Hematocrit 37.4 % (39.6-49.0); Lymphocytes % 37.1 % (15.3-44.8); MPV 8.2 fL (7.6-11.3); Protime INR 0.95; RBC Red Blood Cell Count 3.98 M/uL (4.33-5.43)
[2020-09-24 02:24] LABS: Albumin 3.8 g/dL (3.4-5.0); Bilirubin Direct 0.2 mg/dL (0-0.2); Bilirubin Total 0.6 mg/dL (0.2-1.0); Magnesium 1.9 mg/dL (1.8-2.4); Potassium 3.8 mmol/L (3.5-5.1); Protein, Total 7.5 g/dL (6.4-8.2); Troponin (Emerg Dept Use Only) 0.07 ng/mL (0.0-0.045)
--- NOTE | 2020-09-24 03:12 | ER ---
Nurse's Notes [facility] Name: Demetrius Sarmiento Age: 80 yrs Sex: Male : 1940 Arrival Date: 09/24/2020 Time: 01:10 Bed 4 Private MD: Diagnosis: Angina pectoris, unspecified Presentation: 09/24 01:00 Chief complaint: EMS states: Called for patient with chest pain to mid sternal chest lp1 while at home rated 3/10 on pain scale; Patient took home medication of Nitro tab x1, with pain relief; Patient denies chest pain on arrival to ED; Denies any shortness of breath, dizziness. 01:00 Coronavirus screen: Client denies travel out of the [place] in the last 14 days. At this lp1 time, the client does not indicate any symptoms associated with coronavirus-19. Ebola Screen: No symptoms or risks identified at this time. Initial Sepsis Screen: Does the patient meet any 2 criteria? No. Patient's initial sepsis screen is negative. Does the patient have a suspected source of infection? No. Patient's initial sepsis screen is negative. Initial Sepsis Screen: Does the patient meet any 2 criteria?. Risk Assessment: Do you want to hurt yourself or someone else? Patient reports no desire to harm self or others. Onset of symptoms was September 24, 2020. 01:00 Method Of Arrival: EMS: [facility] lp1 01:00 Acuity: LANCE 3 lp1 01:00 Care prior to arrival: IV initiated. 20 GA, in the right antecubital area. lp1 Historical: - Allergies: 01:30 No Known Allergies; lp1 - Home Meds: 01:30 aspirin 81 mg Oral TbEC 1 tab once daily [Active]; atorvastatin 40 mg Oral tab 1 tab lp1 nightly [Active]; lisinopril 5 mg Oral tab 1 tab once daily [Active]; potassium chloride 10 mEq Oral TbER 1 tab once daily [Active]; furosemide 20 mg Oral tab 1 tab once daily [Active]; Januvia 50 mg oral tab 1 tabs once daily [Active]; isosorbide mononitrate 60 mg Oral Tb24 1.5 tabs once daily [Active]; donepezil 5 mg Oral tab 1 tab nightly [Active]; - PMHx: 01:30 CAD; cardiac arrest; CHF; chronic kidney disease; Chronic pain; Diabetes - IDDM; High lp1 Cholesterol; Hypertension; Myocardial infarction; - PSHx: 01:30 Heart stents; lp1 - Immunization history:: Adult Immunizations up to date. - Social history:: Smoking status: Patient/guardian denies using tobacco, the patient reports quitting approximately 20 years ago. Screenin:00 Abuse screen: Denies threats or abuse. Denies injuries from another. Nutritional lp1 screening: No deficits noted. Tuberculosis screening: No symptoms or risk factors identified. Fall Risk Total Torres Fall Scale indicates High Risk Score (45 or more points). Fall prevention measures have been instituted. Side Rails Up X 2 As available patient and family educated on Fall Prevention Program and Strategies. Assessment: 01:15 General: Appears in no apparent distress. comfortable, Behavior is calm, cooperative, lp1 appropriate for age. Pain: Denies pain. Complains of pain in chest Pain currently is 0 out of 10 on a pain scale. Neuro: Level of Consciousness is awake, alert, obeys commands, Oriented to person, place, time, situation. Cardiovascular: Patient's skin is warm and dry. Respiratory: Respiratory effort is even, unlabored, Respiratory pattern is regular, symmetrical, Breath sounds are clear bilaterally. GI: No signs and/or symptoms were reported involving the gastrointestinal system. : No signs and/or symptoms were reported regarding the genitourinary system. EENT: Reports hard of hearing. Derm: Skin is intact, is fragile, Skin is dry, Skin is normal. Musculoskeletal: No deficits noted. 02:30 Reassessment: Patient appears in no apparent distress at this time. Patient and/or lp1 family updated on plan of care and expected duration. Pain level reassessed. Patient denies pain at this time. 03:30 Reassessment: Patient appears in no apparent distress at this time. Patient and/or jb4 family updated on plan of care and expected duration. Pain level reassessed. Patient is alert, oriented x 3, equal unlabored respirations, skin warm/dry/pink. 04:10 Reassessment: Dr. Merritt at bedside to discuss care with patient. lp1 07:00 Reassessment: RECD REPORT FROM LACY STONER. 80YO WM P/W SUBSTERNAL CHEST PAIN RELIEVED BY bp NTG AT HOME. TROP NOTED TO BE ELEVATED. ADMIT IN PROCESS. 07:59 Reassessment: REPORT TO STEVE STONER FOR RM 232. bp Vital Signs: 01:00 BP 136 / 74; Pulse 100; Resp 18; Temp 98.4(O); Pulse Ox 97% on R/A; Weight 77.11 kg lp1 (R); Height 5 ft. 7 in. (170.18 cm); Pain 0/10; 02:00 BP 109 / 96; Pulse 87; Resp 14; Pulse Ox 97% on R/A; lp1 02:52 BP 113 / 66; Pulse 84; Resp 20; Pulse Ox 98% on R/A; lp1 03:30 BP 119 / 76; Pulse 75; Resp 16; Pulse Ox 98% on R/A; jb4 04:30 BP 114 / 68; Pulse 61; Resp 16; Pulse Ox 99% on R/A; jb4 07:00 BP 99 / 40; Pulse 58; Resp 17; Pulse Ox 98% ; bp 08:00 BP 115 / 56; Pulse 60; Resp 17; Temp 98.4; Pulse Ox 100% ; bp 01:00 Body Mass Index 26.63 (77.11 kg, 170.18 cm) lp1 ED Course: 01:10 Patient arrived in ED. cl3 01:12 Selvin Espitia MD is Attending Physician. tw4 01:15 Arm band placed on. lp1 01:20 Patient has correct armband on for positive identification. Placed in gown. Bed in low lp1 position. Call light in reach. ekg monitor tech on. Pulse ox on. NIBP on. 01:25 Initial lab(s) drawn, by me, sent to lab. Maintain EMS IV. Dressing intact. Good blood lp1 return noted. Site clean \T\ dry. Gauge \T\ site: 20 R AC. 02:01 XRAY Chest (1 view) In Process Unspecified. EDMS 02:03 Milton Jacinto, HERBIE is Primary Nurse. rv 02:41 Triage completed. lp1 03:12 Gerry Rico MD is Hospitalizing Provider. tw4 03:33 No provider procedures requiring assistance completed. Patient admitted, IV remains in lp1 place. 07:12 Primary Nurse role handed off by Milton Jacinto, HERBIE bp 07:12 Stewart Hoffmann, RN is Primary Nurse. bp Administered Medications: No medications were administered Outcome: 03:12 Decision to Hospitalize by Provider. tw4 03:33 Condition: stable lp1 03:33 Instructed on the need for admit. 04:20 Admitted to ER Hold. Please see [facility] for further documentation. jb4 08:27 Patient left the ED. iw Signatures: Dispatcher [employer] EDMS Janina Crews RN RN iw Yulissa Sanders RN RN lp1 Ceasar Jenkins RN RN jb4 Stewart Hoffmann RN RN bp Wadley, Terrence, MD MD tw4 Milton Jacinto RN RN Marisel Callahan cl3 Corrections: (The following items were deleted from the chart) 03:46 03:33 Admitted to ER Hold. Please see [facility] for further documentation. lp1 lp1 07:59 07:58 Reassessment: bp bp
--- NOTE | 2020-09-24 03:12 | EDPHYS ---
Physician Documentation [facility] Name: Demetrius Sarmiento Age: 80 yrs Sex: Male : 1940 Arrival Date: 09/24/2020 Time: 01:10 Bed 4 Private MD: ED Physician Selvin Espitia HPI: 09/24 01:38 This 80 yrs old Male presents to ER via Unassigned with complaints of chest tw4 pain. 01:38 The patient or guardian reports chest pain that is located primarily in the anterior tw4 chest wall. Onset:. Onset: today. The pain does not radiate. Associated signs and symptoms: The patient has no apparent associated signs or symptoms. The chest pain is described as a heaviness. Duration: The patient or guardian reports multiple episodes, that wax and wane, with no pattern. Modifying factors: The symptoms are alleviated by NTG, the symptoms are aggravated by nothing. The patient has not experienced similar symptoms in the past. Historical: - Allergies: 01:30 No Known Allergies; lp1 - Home Meds: 01:30 aspirin 81 mg Oral TbEC 1 tab once daily [Active]; atorvastatin 40 mg Oral tab 1 tab lp1 nightly [Active]; lisinopril 5 mg Oral tab 1 tab once daily [Active]; potassium chloride 10 mEq Oral TbER 1 tab once daily [Active]; furosemide 20 mg Oral tab 1 tab once daily [Active]; Januvia 50 mg oral tab 1 tabs once daily [Active]; isosorbide mononitrate 60 mg Oral Tb24 1.5 tabs once daily [Active]; donepezil 5 mg Oral tab 1 tab nightly [Active]; - PMHx: 01:30 CAD; cardiac arrest; CHF; chronic kidney disease; Chronic pain; Diabetes - IDDM; High lp1 Cholesterol; Hypertension; Myocardial infarction; - PSHx: 01:30 Heart stents; lp1 - Immunization history:: Adult Immunizations up to date. - Social history:: Smoking status: Patient/guardian denies using tobacco, the patient reports quitting approximately 20 years ago. ROS: 01:38 Constitutional: Negative for fever, chills, and weight loss, Eyes: Negative for injury, tw4 pain, redness, and discharge, Respiratory: Negative for shortness of breath, cough, wheezing, and pleuritic chest pain, Abdomen/GI: Negative for abdominal pain, nausea, vomiting, diarrhea, and constipation, Back: Negative for injury and pain, MS/Extremity: Negative for injury and deformity, Skin: Negative for injury, rash, and discoloration, Neuro: Negative for headache, weakness, numbness, tingling, and seizure. 01:38 Cardiovascular: Positive for chest pain, Negative for edema, orthopnea, palpitations, paroxysmal nocturnal dyspnea. Exam: 01:38 Constitutional: This is a well developed, well nourished patient who is awake, alert, tw4 and in no acute distress. Head/Face: Normocephalic, atraumatic. Chest/axilla: Normal chest wall appearance and motion. Nontender with no deformity. No lesions are appreciated. Cardiovascular: Regular rate and rhythm with a normal S1 and S2. No gallops, murmurs, or rubs. Normal PMI, no JVD. No pulse deficits. Respiratory: Lungs have equal breath sounds bilaterally, clear to auscultation and percussion. No rales, rhonchi or wheezes noted. No increased work of breathing, no retractions or nasal flaring. Abdomen/GI: Soft, non-tender, with normal bowel sounds. No distension or tympany. No guarding or rebound. No evidence of tenderness throughout. Back: No spinal tenderness. No costovertebral tenderness. Full range of motion. Skin: Warm, dry with normal turgor. Normal color with no rashes, no lesions, and no evidence of cellulitis. MS/ Extremity: Pulses equal, no cyanosis. Neurovascular intact. Full, normal range of motion. Neuro: Awake and alert, GCS 15, oriented to person, place, time, and situation. Cranial nerves II-XII grossly intact. Motor strength 5/5 in all extremities. Sensory grossly intact. Cerebellar exam normal. Normal gait. Vital Signs: 01:00 BP 136 / 74; Pulse 100; Resp 18; Temp 98.4(O); Pulse Ox 97% on R/A; Weight 77.11 kg lp1 (R); Height 5 ft. 7 in. (170.18 cm); Pain 0/10; 02:00 BP 109 / 96; Pulse 87; Resp 14; Pulse Ox 97% on R/A; lp1 02:52 BP 113 / 66; Pulse 84; Resp 20; Pulse Ox 98% on R/A; lp1 03:30 BP 119 / 76; Pulse 75; Resp 16; Pulse Ox 98% on R/A; jb4 04:30 BP 114 / 68; Pulse 61; Resp 16; Pulse Ox 99% on R/A; jb4 07:00 BP 99 / 40; Pulse 58; Resp 17; Pulse Ox 98% ; bp 08:00 BP 115 / 56; Pulse 60; Resp 17; Temp 98.4; Pulse Ox 100% ; bp 01:00 Body Mass Index 26.63 (77.11 kg, 170.18 cm) lp1 MDM: 01:12 Patient medically screened. tw4 09/24 01:48 Order name: Basic Metabolic Panel tw4 09/24 01:48 Order name: CBC with Diff; Complete Time: 03:09 tw4 09/24 03:09 Interpretation: Normal except: RBC 3.98; HGB 13.0; HCT 37.4. tw4 09/24 01:48 Order name: LFT's; Complete Time: 03:09 tw4 09/24 03:09 Interpretation: Normal except: AST 14; GLOB 3.7; A/G 1.0. tw4 09/24 01:48 Order name: Magnesium; Complete Time: 03:09 tw4 09/24 03:09 Interpretation: Within normal limits: MG 1.9. tw4 09/24 01:48 Order name: NT PRO-BNP; Complete Time: 03:09 tw4 09/24 03:09 Interpretation: Normal except: NT PRO-BNP 502. tw4 09/24 01:48 Order name: PT-INR; Complete Time: 03:09 tw4 09/24 03:09 Interpretation: Within normal limits: PT 11.2. tw4 09/24 01:48 Order name: Troponin (emerg Dept Use Only); Complete Time: 03:09 tw4 09/24 03:09 Interpretation: Normal except: TROPED 0.07. tw4 09/24 01:49 Order name: Basic Metabolic Panel; Complete Time: 03:09 EDMS 09/24 03:09 Interpretation: Normal except: GLUC 157; BUN 22; CRE 1.69; GFR 39. tw4 09/24 04:04 Order name: Basic Metabolic Panel EDMS 09/24 04:04 Order name: Lipid Profile EDMS 09/24 04:04 Order name: Lipid Profile EDVT 09/24 04:04 Order name: Troponin I EDVT 09/24 04:04 Order name: Troponin I EDVT 09/24 04:04 Order name: Troponin I EDVT 09/24 01:48 Order name: XRAY Chest (1 view) tw4 09/24 01:48 Order name: EKG; Complete Time: 01:49 tw4 09/24 01:48 Order name: Cardiac monitoring; Complete Time: 02:51 tw4 09/24 01:48 Order name: EKG - Nurse/Tech; Complete Time: 02:51 tw4 09/24 01:48 Order name: IV Saline Lock; Complete Time: 02:51 tw4 09/24 01:48 Order name: Labs collected and sent; Complete Time: 02:51 tw4 09/24 01:48 Order name: O2 Per Protocol; Complete Time: 02:51 tw4 09/24 01:48 Order name: O2 Sat Monitoring; Complete Time: 02:51 tw4 09/24 04:04 Order name: CONS Physician Consult EDVT 09/24 04:04 Order name: CONS Physician Consult EDVT 09/24 04:04 Order name: Consistent Carb (ADA) [address] EDVT 09/24 04:04 Order name: Troponin I EDVT 09/24 04:11 Order name: COVID-19 [facility] 09/24 05:41 Order name: CORONAVIRUS EDVT 09/24 06:06 Order name: Glucose, Ancillary Testing EDVT 09/24 07:14 Order name: SARS-COV-2 RT PCR EDMS EC:38 Rate is 94 beats/min. Left axis deviation noted. QRS interval is normal. QT interval is tw4 normal. No Q waves. T waves are Inverted in leads I, aVL, V2. No ST changes noted. Clinical impression: NSR w/ Non-specific ST/T Changes. Reviewed by me. Administered Medications: No medications were administered Disposition: 09/24/20 03:12 Hospitalization ordered by Gerry Rico for Inpatient Admission. Preliminary diagnosis is Angina pectoris, unspecified. - Bed requested for Telemetry/MedSurg (observation). - Status is Inpatient Admission. iw - Condition is Stable. - Problem is an ongoing problem. - Symptoms have improved. Signatures: Dispatcher [facility] Mary Arceo RN RN mw Janina Crews, RN RN iw Yulissa Sanders, HERBIE RN lp1 Selvin Espitia MD MD tw4 Corrections: (The following items were deleted from the chart) 03:22 03:12 Hospitalization Ordered by Gerry Rico MD for Inpatient Admission. mw Preliminary diagnosis is Angina pectoris, unspecified. Bed requested for Telemetry/MedSurg (Inpatient). Status is Inpatient Admission. Condition is Stable. Problem is an ongoing problem. Symptoms have improved. tw4 06:01 03:22 09/24/2020 03:12 Hospitalization Ordered by Gerry Rico MD for Inpatient mw Admission. Preliminary diagnosis is Angina pectoris, unspecified. Bed requested for [facility] ER HOLD. Status is Inpatient Admission. Condition is Stable. Problem is an ongoing problem. Symptoms have improved. mw 08:27 06:01 09/24/2020 03:12 Hospitalization Ordered by Gerry Rico MD for Inpatient iw Admission. Preliminary diagnosis is Angina pectoris, unspecified. Bed requested for Telemetry/MedSurg (observation). Status is Inpatient Admission. Condition is Stable. Problem is an ongoing problem. Symptoms have improved. mw
[2020-09-24] MEDS ORDERED: ENOXAPARIN 80 MG/0.8 ML SQ SCH ×2 (03:57→18:00)
[2020-09-24] MEDS ORDERED: ASPIRIN 325 MG TAB PO ONE (03:57)
[2020-09-24] MEDS ORDERED: MORPHINE 2 MG/ML SYR IV PRN (03:57)
--- NOTE | 2020-09-24 04:16 | P.HP ---
Certification for Inpatient Patient admitted to: Observation With expected LOS: <2 Midnights Practitioner: I am a practitioner with admitting privileges, knowledge of patient current condition, hospital course, and medical plan of care. Services: Services provided to patient in accordance with Admission requirements found in Title 42 Section 412.3 of the Code of Federal Regulations Patient History Date of Service: 09/24/20 Reason for admission: Chest pain History of Present Illness: Patient is 80 years of age with a significant history of coronary artery disease admitted with the chest pain that started in the middle of the night, came to the emergency room has now resolved denies any shortness of breath and all ankle edema he does see a conservation assistant former smoker Allergies No Known Allergies Allergy (Verified 03/10/20 01:08) Home Medications: Aspirin 1 tab PO DAILY 03/10/20 Atorvastatin Calcium 1 tab PO BEDTIME 03/10/20 Insulin Glargine Human [Lantus*] 30 unit SQ DAILY 03/10/20 Magnesium Oxide 1 tab PO DAILY AT SUPPER 03/10/20 Metoprolol Tartrate 25 mg PO BID 03/10/20 Multivitamin [Multivitamins] 1 cap PO DAILY 03/10/20 Ranolazine [Ranolazine ER] 1 tab PO Q12H 03/10/20 Potassium Chloride [K-Dur] 10 meq PO DAILY #30 tab.er.prt 03/11/20 Donepezil HCl [Aricept] 5 mg PO DAILY AT SUPPER 03/17/20 Furosemide [Lasix] 20 mg PO DAILY AT SUPPER 03/17/20 Isosorbide Mononitrate [Isosorbide Mononitrate ER] 30 mg PO DAILY AT SUPPER 03/17/20 Mecobalamin [B12 Active] 1,000 mcg PO DAILY 03/17/20 glipiZIDE [Glipizide] 2.5 tab PO BID 6AM 6PM 03/17/20 - Past Medical/Surgical History Diabetic: Yes -: CHF -: HTN -: DM IDDM -: Heart Stents -: Solitary kidney -: Chronic renal failure -: stents - Family History Father -: Heart disease - Social History Smoking Status: Former smoker Alcohol use: No CD- Drugs: No Caffeine use: Yes Review of Systems 10-point ROS is otherwise unremarkable Physical Examination - Vital Signs Temperature: 98.4 F Blood Pressure: 136/74 Pulse: 100 Respirations: 18 Pulse Ox (%): 97 - Physical Exam General: Alert, In no apparent distress, Oriented x3 Respiratory: Clear to auscultation bilaterally Cardiovascular: No edema, Normal pulses, Regular rate/rhythm, Normal S1 S2 Gastrointestinal: Normal bowel sounds, Soft and benign Musculoskeletal: No clubbing, No swelling Integumentary: No rashes, No breakdown Neurological: Normal speech, Normal strength at 5/5 x4 extr - Studies Laboratory Data (last 24 hrs) 09/24/20 01:25: PT 11.2, INR 0.95 09/24/20 01:25: WBC 6.3, Hgb 13.0 L, Hct 37.4 L, Plt Count 190 09/24/20 01:25: Sodium 141, Potassium 3.8, BUN 22 H, Creatinine 1.69 H, Glucose 157 H, Magnesium 1.9, Total Bilirubin 0.6, AST 14 L, ALT 21, Alkaline Phosphatase 54 Assessment and Plan - Problems (Diagnosis) (1) Chest pain Current Visit: Yes Status: Acute Plan: Patient is 80 years of age is significant history of coronary artery disease admitted with chest pain which is not resolved admitted to the hospital for unstable angina resume his home medications upon is very borderline patient has chronic renal failure is very hard of hearing admit for observation anticoagulating Qualifiers: Ischemic chest pain type: unstable angina pectoris - Advance Directives Does patient have a Living Will: Yes Does patient have a Durable POA for Healthcare: Yes
[2020-09-24] MEDS ORDERED: NITROGLYCERIN 0.4 MG/TAB SL PRN (04:20)
[2020-09-24 04:49] VITALS: BMI 26.6
[2020-09-24] MEDS: METOPROLOL TAR 25 MG TAB PO SCH ×2 (04:55→09:00)
[2020-09-24] MEDS ORDERED: ENOXAPARIN 80 MG/0.8 ML SQ ONE (05:06)
[2020-09-24] MEDS ORDERED: METOPROLOL TAR 25 MG TAB ONE (05:06)
[2020-09-24] MEDS ORDERED: ASPIRIN 325 MG TAB ONE (05:06)
[2020-09-24] MEDS ORDERED: INSULIN -REGULAR HUMAN 50 UNIT/0.5 ML ML SQ SCH (06:00)
--- NOTE | 2020-09-24 07:23 | EKG ---
Test Date: 2020-09-24 Test Time: 01:33:09 Crossbar Switch Adjuster: VONDA MEASUREMENT RESULTS: Intervals: Rate: 94 MA: 168 QRSD: 112 QT: 388 QTc: 485 [place]: P: 49 MA: 168 QRS: -66 T: 118 INTERPRETIVE STATEMENTS: Normal sinus rhythm Left axis deviation Pulmonary disease pattern Incomplete right bundle branch block Voltage criteria for left ventricular hypertrophy T wave abnormality, consider lateral ischemia Prolonged QT Abnormal ECG Compared to ECG 03/17/2020 04:31:21 Incomplete right bundle-branch block now present T-wave abnormality now present Prolonged QT interval now present Myocardial infarct finding no longer present ST (T wave) deviation no longer present Possible ischemia still present Electronically Signed On 09-24-20 07:22:18 FARM MACHINE OPERATOR by Gibson Davidson
--- NOTE | 2020-09-24 07:47 | RAD REPORT ---
EXAM DESCRIPTION: [place] Single View09/24/2020 2:01 am CLINICAL HISTORY: Chest pain COMPARISON: March 2020 FINDINGS: The lungs appear clear of acute infiltrate. The heart is mildly enlarged. Neurostimulator device overlies spine IMPRESSION: No acute abnormalities displayed
[2020-09-24] MEDS ORDERED: PNEUMOCOCCAL VACCINE 0.5 ML IMVAC ONE (08:00)
[2020-09-24 08:42] VITALS: O2SAT 100
[2020-09-24] MEDS ORDERED: METOPROLOL TAR 50 MG TAB PO SCH (09:00)
[2020-09-24] MEDS ORDERED: lisinopriL 10 MG TAB PO SCH (09:00)
[2020-09-24] MEDS: INSULIN -REGULAR HUMAN 50 UNIT/0.5 ML ML SQ SCH ×2 (13:01→16:30)
--- NOTE | 2020-09-24 15:40 | P.PN ---
Date of Service: 09/24/20 Patient states his chest pain has resolved. Chest pain atypical in nature and relieved by nitroglycerin. Patient reports history of recurrent chest pain which is relieved by nitroglycerin. Significant history of coronary artery disease status post 2 stents. Troponin peaked at 0.07. Diagnosis: Unstable angina. CAD Presence of cardiac stent. Case dicussed with cardiology. Cardiology is considering cardiac catheterization today. He received a dose of Lovenox early this morning. Hold evening dose for cardiac catheterization. He is on metoprolol, aspirin. Start lipitor.
[2020-09-24 16:36] VITALS: BP 125/58; TEMP 97.5
--- NOTE | 2020-09-24 18:23 | P.PN ---
Date of Service: 09/24/20 Nurse called me and told me patient decided to leave because locomotive switch operator delayed in seeing him today. Nurse report he was already in the elevator and had left at the time of the report. I did not get the chance to evaluate his concern and discuss his risk of leaving without treatment.
--- NOTE | 2020-09-24 18:27 | P.DS ---
Admission Date: 09/24/20 Discharge Date: 09/24/20 Disposition: AMA-LEFT AGAINST MEDICAL ADVIC Reason for Admission: Chest pain Brief History of Present Illness: Patient with a history of coronary artery disease status post cardiac stent presented to the emergency department with a complaint of chest pain, relieved by nitroglycerin. He reports prior recurrent chest pain relieved by nitroglycerine. His initial troponin was mildly elevated. Patient was deemed full-dose Lovenox in the ED and admitted for further management/ Hospital Course: He had no chest pain today when I saw him on the floor. Troponin trended flat. Patient was put on aspirin and metoprolol. Cardiology was consulted. Case was discussed with Dr. Baldwin who recommended cardiac catheterization tomorrow. The nurse called me this afternoon and told me patient decided to leave right after Dr. Baldwin saw him. He was out of the building in the elevator at the time of the report and had not had a chance to evaluate his concern or discuss his risk of leaving without treatment. Vital Signs/Physical Exam: Temp Pulse Resp BP Pulse Ox 97.5 F 59 20 125/58 L 98 09/24/20 16:00 09/24/20 16:00 09/24/20 16:00 09/24/20 16:00 09/24/20 16:00 Laboratory Data at Discharge: WBC 6.3 K/uL (4.3-10.9) 09/24/20 01:25 Hgb 13.0 g/dL (13.6-17.9) L 09/24/20 01:25 Hct 37.4 % (39.6-49.0) L 09/24/20 01:25 Plt Count 190 K/uL (152-406) 09/24/20 01:25 PT 11.2 SECONDS (9.5-12.5) 09/24/20 01:25 INR 0.95 09/24/20 01:25 Sodium 142 mmol/L (136-145) 09/24/20 04:30 Potassium 4.0 mmol/L (3.5-5.1) 09/24/20 04:30 BUN 22 mg/dL (7-18) H 09/24/20 04:30 Creatinine 1.63 mg/dL (0.55-1.3) H 09/24/20 04:30 Glucose 133 mg/dL (74-106) H 09/24/20 04:30 Magnesium 1.9 mg/dL (1.8-2.4) 09/24/20 01:25 Total Bilirubin 0.6 mg/dL (0.2-1.0) 09/24/20 01:25 AST 14 U/L (15-37) L 09/24/20 01:25 ALT 21 U/L (12-78) 09/24/20 01:25 Alkaline Phosphatase 54 U/L (45-117) 09/24/20 01:25 Troponin I Cancelled 09/24/20 23:30 Triglycerides 288 mg/dL (<150) H 09/24/20 04:30 Cholesterol 206 mg/dL (<200) H 09/24/20 04:30 HDL Cholesterol 49 mg/dL (40-60) 09/24/20 04:30 Cholesterol/HDL Ratio 4.20 09/24/20 04:30 Home Medications: Aspirin 1 tab PO DAILY 03/10/20 Atorvastatin Calcium 1 tab PO BEDTIME 03/10/20 Insulin Glargine Human [Lantus*] 10 unit SQ BEDTIME 03/10/20 Potassium Chloride [K-Dur] 10 meq PO DAILY #30 tab.er.prt 03/11/20 Donepezil HCl [Aricept] 5 mg PO DAILY AT SUPPER 03/17/20 Furosemide [Lasix] 20 mg PO DAILY AT SUPPER 03/17/20 Isosorbide Mononitrate [Isosorbide Mononitrate ER] 1.5 tab PO DAILY 09/24/20 Lisinopril [Zestril] 5 mg PO DAILY 09/24/20 Sitagliptin Phosphate [Januvia] 50 mg PO DAILY 09/24/20 Followup: NONE,NONE [Primary Care Provider] -
== END 2020-09-24 16:58 | disposition left against medical advice (07) | DRG 303 ==
LOC: ER 01:09 → ERHOLD 04:10 → 2ND 07:56 → OBSVTOIN 12:09
PROVIDERS: ADMIT Internal Medicine Sleep Medicine; ATTEND Internal Medicine
DX: I25.110 Atherosclerotic heart disease of native coronary artery with unstable angina pectoris (principal); I12.9 Hypertensive chronic kidney disease with stage 1 through stage 4 chronic kidney disease, or unspecified chronic kidney disease; N18.9 Chronic kidney disease, unspecified; E11.22 Type 2 diabetes mellitus with diabetic chronic kidney disease; I25.2 Old myocardial infarction; Z95.5 Presence of coronary angioplasty implant and graft; Z87.891 Personal history of nicotine dependence; Z79.82 Long term (current) use of aspirin; Z79.899 Other long term (current) drug therapy; Z79.4 Long term (current) use of insulin; Z20.828 Contact with and (suspected) exposure to other viral communicable diseases
CPT/HCPCS: 36415; 71045; 80048; 80061; 80076; 82947; 83735; 83880; 84484; 85025; 85610; 93005; 99285; G0378; J2270; U0003

== ENCOUNTER 2021-04-24 03:31 | Emergency (ER) | payer OTHER ==
--- OUTSIDE RECORDS SUMMARY | 2021-04-24 03:34 | XMS REPORT | Continuity of Care Document ---
:1940 Author Organization [facility] t Address [address] [place] [address] Care Team Providers Name Role Phone Trang WOOTEN Primary Care Physician Vidal WOOTEN, S Attending Clinician Umang WOOTEN Attending Clinician Charisma WOOTEN, T Attending Clinician Ariel STONER Attending Clinician Problems Condition Condition Condition Status Onset Resolution Last Treating Co mments Source Name Details Category Date Date Treatment Clinician Date Chest pain Chest pain Disease Active 2018-11 [place] 11-24 [facility] 00:00: st 00 CHF CHF Disease Active [facility] exacerbati exacerbati 1-28 Me thodi on on 00:00: st 00 Essential Essential Disease Active Halina martinn hypertensi hypertensi - Me thodi on on 00:00: st 00 Type 2 Type 2 Disease Active [facility]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 diabetes 1-28 [facility] i mellitus mellitus 00:00: st 00 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 4-10 Me ronal athy athy 00:00: st associated associated 00 with type with type 2 diabetes 2 diabetes mellitus mellitus Late onset Late onset Disease Active [place] Alzheimer' Alzheimer' 01-12 Me ronal s disease s disease 00:00: st with with 00 behavioral behavioral disturbanc disturbanc e e 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 Routine Routine Problem Active [facility] On home On home Problem Active [facility] oxygen oxygen [facility] therapy therapy [facility] Coronary Coronary Problem Active [facility] artery artery [facility] - disease disease [facility] involving involving [place] [facility] coronary coronary ent artery of artery of Clin ics [place] heart, heart, angina angina presence presence unspecifie unspecifie d d S/P S/P Problem Active [facility] coronary coronary [facility] - artery artery Memoria stent stent l placement placement Outp at ent Clinics 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 Luke s - diabetes diabetes Memori a mellitus mellitus l with with [facility] hyperglyce hyperglyce en t [facility] Need for Need for Problem Active [facility] dental dental [facility] care care [facility] History of History of Problem Active [facility] prostate prostate [facility] cancer cancer [facility] Alzheimer Alzheimer Problem Active [facility] disease disease [facility] Diabetes Diabetes Problem Active [facility] Heart Heart Problem Active [facility] disease disease [facility] Heart Heart Problem Active [facility] attack attack [facility] Blurry Blurry Problem Active [facility] vision, vision, [facility] - bilateral bilateral Manjit greg l [facility] Chronic Chronic Problem Active [facility] pain pain [facility] - syndrome syndrome [facility]ori a l [facility] Allergies, Adverse Reactions, Alerts This patient has no known allergies or adverse reactions. Family History Family Member Diagnosis Comments Start Date Stop Date Source Natural father Heart disease Stew Gnosticism Natural father Seizures [facility] thodist Natural mother Alzheimer's disease [place] [facility]ostic[facility] Natural mother Cancer [facility] [place] [facility] Social History Social Habit Start Date Stop Date Quantity Comments Source History of tobacco Cigarette Smoker [facility] use [facility] Cigarettes smoked 2019-09-27 2019-09-27 [place] current (pack per 00:00:00 00:00:[address] ) - Reported Tobacco use and 2019-09-27 2019-09-27 Never used [facility] exposure 00:00:00 00:00:00 [facility] Alcohol intake 2019-09-27 2019-09-27 Current [facility] 00:00:00 00:00:00 non-drinker of Gnosticism alcohol (finding) Sex Ass[birth year] At [birth year] [facility] 00:00:00 00:00:00 Gn[facility] Smoking Status Start Date Stop Date Source Former smoker 2019-09-27 00:00:00 2019-09-27 00:00:00 [place] [facility] Medications Ordered Filled Start Stop Current Ordering Indication Dosage Frequency Signature Comments Components Source Medication Medication Date Date Medication? Clinician (SIG) Name Name multivitami 2018-11 Yes 1{tbl} QD Take 1 [place] 1-13 tablet by [facility] (THERAGRAN) 11:14: mouth st tablet 11 nightly. traMADol 2018-11 Yes 50mg Take 50 mg Halina ston (ULTRAM) 50 -13 by mouth. Met hodi [...] QD Take 60 mg [place] mononitrate 1-13 by mouth Meth mercedes (IMDUR) 60 11:14: daily. st MG 24 hr 11 tablet potassium 2018-11 Yes 10meq QD Take 10 [place] chloride 1-13 mEq by [facility] (K-DUR) 10 11:14: mouth st MEQ CR 11 daily. tablet multivitami 2018-11 Yes 1{tbl} QD Take 1 [place] n 1-13 tablet by [facility] (THERAGRAN) 00:00: mouth st tablet 00 nightly. pregabalin 2020- No 150mg [id number] Take 1 Mathias (LYRICA) 6-20 06-19 [id number] capsule M ethodi 150 MG 00:00: 23:59 [...] ONCE st tablet 00 DAILY AT NIGHT Potassium Potassium Yes Anneliese 1 capsule [facility] [...] Yes Anneliese [address] [facility] [address] Millender [facility] ent Clinics Isosorbide Isosorbide Yes Anneliese [address] Mononitrate Mononitrate [facility] Clinics Jose Antonio Brady Yes Anneliese 1 capsule [facility] Clinics Procedures This patient has no known procedures. Plan of Care Planned Activity Planned Date Details Comments Source Future Scheduled 2021-06-16 INFLUENZA VACCINE [place] [facility] Test 00:00:00 [code = INFLUENZA VACCINE] Future Scheduled 2020-03-08 DIABETES: RETINAL EYE [place] [facility] Test 00:00:00 EXAM [code = DIABETES: RETINAL EYE EXAM] Future Scheduled 2016-12-18 65+ PNEUMOCOCCAL Mathias [facility] Test 00:00:00 VACCINE (2 of 4 - PPSV23) [code = 65+ PNEUMOCOCCAL VACCINE (2 of 4 - PPSV23)] Future Scheduled 1989 SHINGLES VACCINES (#1) [place] [facility] Test 00:00:00 [code = SHINGLES VACCINES (#1)] Future Scheduled 1951 COVID-19 VACCINE (1) Halina ston [facility] Test 00:00:00 [code = COVID-19 VACCINE (1)] Future Scheduled 1949 DIABETIC FOOT EXAM [place] [facility] Test 00:00:00 [code = DIABETIC FOOT EXAM] Encounters Start End Encounter Admission Attending Care Care Encounter Source Date/Time Date/Time Type Type Clinicians Facility Department ID 2020-06-26 2020-06-26 Emergency [facility] [id number] 03:50:00 06:45:00 Martha Cortez [id number] [place] [id number] [place] [address] [id number] 2020-05-24 2020-05-24 Emergency [id number] 06:40:47 10:54:00 Charanjit Cortez [id number] [place] [id number] [place] [address] [id number] 2020-03-29 2020-03-29 Jamel Dunn Maki [id number] 00:00:00 00:00:00 (Out) Justina Sotelo [id number] [facility] [id number] 2020-03-26 2020-03-26 Transition Sharee George [id number] 00:00:00 00:00:00 of Care Sherrell Trent [id number] [place] [id number] 2019-10-07 2019-10-07 [facility] [id number] [address] 10:48:00 10:48:00 [facility] ent Clinics 2019-10-05 2019-10-05 [facility] [id number] 16:06:00 16:06:00 [facility] 2019-07-12 2019-07-12 [facility] [id number] 16:24:00 16:24:00 [facility] 2019-07-06 2019-07-06 [facility] [id number] 14:00:00 14:00:00 [facility] ent Clinics Results This patient has no known results.
[2021-04-24] MEDS ORDERED: ONDANSETRON 4 MG/2 ML VIAL ONE (04:04)
[2021-04-24] MEDS ORDERED: MORPHINE 2 MG/ML SYR ONE (04:04)
[2021-04-24 04:12] LABS: Absolute Lymphocytes (CBC) 1.7 K/uL (0.7-4.9); Basophils % 1.2 % (0-1.3); Lymphocytes % 27.9 % (15.3-44.8); MPV 8.6 fL (7.6-11.3); RBC Red Blood Cell Count 4.19 M/uL (4.33-5.43)
[2021-04-24 04:21] LABS: Albumin 3.8 g/dL (3.4-5.0); Bilirubin Direct 0.2 mg/dL (0-0.2); Potassium 3.9 mmol/L (3.5-5.1); Protein, Total 7.5 g/dL (6.4-8.2)
[2021-04-24 06:05] LABS: Urine Blood Negative (Negative); Urine Glucose Negative (Negative); Urine Protein Trace (Negative); Urine Specific Gravity >=1.030 (1.005-1.030)
--- NOTE | 2021-04-24 06:19 | ER ---
Nurse's Notes [facility] Name: Demetrius Sarmiento Age: 80 yrs Sex: Male : 1940 Arrival Date: 04/24/2021 Time: 03:35 Bed 5 Private MD: Diagnosis: Spinal stenosis, lumbar region Presentation: 04/24 03:35 Chief complaint: Patient states: Pt BIB EMS from home for c/o L lower back/hip pain ad5 that began yesterday. Pt denies known injury or fall. Pain exacerbated by movement/positioning. Denies other c/o. No relief with lidocaine patch. Coronavirus screen: At this time, the client does not indicate any symptoms associated with coronavirus-19. Ebola Screen: No symptoms or risks identified at this time. Initial Sepsis Screen: Does the patient meet any 2 criteria? No. Patient's initial sepsis screen is negative. Does the patient have a suspected source of infection? No. Patient's initial sepsis screen is negative. Risk Assessment: Do you want to hurt yourself or someone else? Patient reports no desire to harm self or others. Onset of symptoms was April 23, 2021. 03:35 Method Of Arrival: EMS ad5 03:35 Acuity: LANCE 3 ad5 Triage Assessment: 03:38 General: Appears in no apparent distress. Behavior is calm, cooperative, appropriate ad5 for age. Pain: Complains of pain in L lower back/hip/flank. Musculoskeletal: Circulation, motion, and sensation intact. Capillary refill < 3 seconds. Historical: - Allergies: 03:38 No Known Allergies; ad5 - PMHx: 03:38 CAD; cardiac arrest; CHF; chronic kidney disease; Chronic pain; Diabetes - IDDM; High ad5 Cholesterol; Hypertension; Myocardial infarction; - Immunization history:: Adult Immunizations unknown. - Social history:: Smoking status: Patient/guardian denies using tobacco, but has a distant history of tobacco abuse. Screenin:40 Abuse screen: Denies threats or abuse. Denies injuries from another. Nutritional ad5 screening: No deficits noted. Tuberculosis screening: No symptoms or risk factors identified. Fall Risk. Fall Risk No fall in past 12 months (0 pts). Secondary diagnosis (15 points) IV access (20 points). Ambulatory Aid- Crutches/Cane/Walker (15 pts). Gait- Normal/Bed Rest/Wheelchair (0 pts) Mental Status- Oriented to own ability (0 pts). Total Torres Fall Scale indicates High Risk Score (45 or more points). Fall prevention measures have been instituted. Side Rails Up X 2 Frequent Obs/Assessments Occuring As available patient and family educated on Fall Prevention Program and Strategies. Assessment: 03:39 General: Appears in no apparent distress. Behavior is calm, cooperative, appropriate ad5 for age. Neuro: No deficits noted. Level of Consciousness is awake, alert, obeys commands, Oriented to person, place, time, situation, Appropriate for age Horse Rider are equal bilaterally Moves all extremities. Neuro: Intact. Cardiovascular: No deficits noted. Capillary refill < 3 seconds Patient's skin is warm and dry. Respiratory: No deficits noted. Airway is patent Respiratory effort is even, unlabored, Respiratory pattern is regular, symmetrical. GI: No deficits noted. No signs and/or symptoms were reported involving the gastrointestinal system. : No deficits noted. No signs and/or symptoms were reported regarding the genitourinary system. EENT: No deficits noted. No signs and/or symptoms were reported regarding the EENT system. Derm: No deficits noted. No signs and/or symptoms reported regarding the dermatologic system. Skin is pink, warm \T\ dry. Musculoskeletal: Circulation, motion, and sensation intact. Capillary refill < 3 seconds, Range of motion: intact in all extremities, no obvious deformity, edema or other abnormalities noted; distal SMCs intact. 04:52 Reassessment: Patient appears in no apparent distress at this time. No changes from ad5 previously documented assessment. Patient and/or family updated on plan of care and expected duration. Pain level reassessed. Patient is alert, oriented x 3, equal unlabored respirations, skin warm/dry/pink. Vital Signs: 03:35 BP 156 / 79; Pulse 89; Resp 16 S; Temp 97.6; Pulse Ox 95% on R/A; Weight 84.82 kg; ad5 Height 5 ft. 7 in. (170.18 cm); Pain 5/10; 04:45 BP 146 / 73; Pulse 74; Resp 18; Pulse Ox 98% on R/A; ak2 06:35 BP 139 / 76; Pulse 81; Resp 20; Pulse Ox 98% on R/A; ak2 03:35 Body Mass Index 29.29 (84.82 kg, 170.18 cm) ad5 ED Course: 03:35 Patient arrived in ED. ad5 03:35 Collin Finnegan is Primary Nurse. ad5 03:36 Brett Lema MD is Attending Physician. 7 03:37 Triage completed. ad5 03:40 Inserted saline lock: 20 gauge in right antecubital area, using aseptic technique. ds4 Blood collected. 03:42 No apparent distress. Resting quietly. ad5 03:42 Patient has correct armband on for positive identification. Placed in gown. Bed in low ad5 position. Call light in reach. Side rails up X2. Pulse ox on. NIBP on. 04:23 CT Stone Protocol In Process Unspecified. EDMS 04:23 CT Lumbar Spine Wo Con In Process Unspecified. EDMS 05:12 Chest Single View XRAY In Process Unspecified. EDMS 06:17 Ceasar Carrera MD is Referral Physician. 7 Administered Medications: 03:46 Drug: morphine 2 mg Route: IVP; Site: right antecubital; ak2 03:46 Drug: Zofran (Ondansetron) 4 mg Route: IVP; Site: right antecubital; ak2 Outcome: 06:18 Discharge ordered by . [facility] 06:55 Patient left the ED. ak2 Signatures: Dispatcher [employer] EDMS Senthil Fields ds4 Brett Lema MD MD 7 Collin Finnegan ad5 Nathan Portillo ak2
--- NOTE | 2021-04-24 06:19 | EDPHYS ---
Physician Documentation [facility] Name: Demetrius Sarmiento Age: 80 yrs Sex: Male : 1940 Arrival Date: 04/24/2021 Time: 03:35 Bed 5 Private MD: ED Physician Brett Lema HPI: 04/24 04:10 This 80 yrs old Male presents to ER via EMS with complaints of Back Pain. mh7 04:10 The patient presents with pain that is acute, with no known mechanism of injury. The mh7 symptoms are located in the left flank. Onset: The symptoms/episode began/occurred yesterday. The pain does not radiate. 04:11 Associated signs and symptoms: Pertinent negatives: abdominal pain, chest pain, mh7 constipation, dysuria, fever, headache, hematuria, incontinence, nausea, numbness, tingling, urinary retention, vomiting, weakness. The problem was sustained from unknown cause. Modifying factors: The patient symptoms are alleviated by remaining still, Lidocaine patch and CBD oil, the patient symptoms are aggravated by any movement. Severity of symptoms: At their worst the symptoms were moderate, last night, in the emergency department the symptoms have improved, moderately. Historical: - Allergies: 03:38 No Known Allergies; ad5 - PMHx: 03:38 CAD; cardiac arrest; CHF; chronic kidney disease; Chronic pain; Diabetes - IDDM; High ad5 Cholesterol; Hypertension; Myocardial infarction; - Immunization history:: Adult Immunizations unknown. - Social history:: Smoking status: Patient/guardian denies using tobacco, but has a distant history of tobacco abuse. ROS: 04:11 Constitutional: Negative for fever, chills, and weight loss, Eyes: Negative for injury, mh7 pain, redness, and discharge, ENT: Negative for injury, pain, and discharge, Neck: Negative for injury, pain, and swelling, Cardiovascular: Negative for chest pain, palpitations, and edema, Respiratory: Negative for shortness of breath, cough, wheezing, and pleuritic chest pain, Abdomen/GI: Negative for abdominal pain, nausea, vomiting, diarrhea, and constipation, : Negative for injury, bleeding, discharge, and swelling, MS/Extremity: Negative for injury and deformity, Skin: Negative for injury, rash, and discoloration, Neuro: Negative for headache, weakness, numbness, tingling, and seizure, Psych: Negative for depression, anxiety, suicide ideation, homicidal ideation, and hallucinations, Allergy/Immunology: Negative for hives, rash, and allergies, Endocrine: Negative for neck swelling, polydipsia, polyuria, polyphagia, and marked weight changes, Hematologic/Lymphatic: Negative for swollen nodes, abnormal bleeding, and unusual bruising. Exam: 04:11 Constitutional: This is a well developed, well nourished patient who is awake, alert, mh7 and in no acute distress. Head/Face: Normocephalic, atraumatic. Eyes: Pupils equal round and reactive to light, extra-ocular motions intact. Lids and lashes normal. Conjunctiva and sclera are non-icteric and not injected. Cornea within normal limits. Periorbital areas with no swelling, redness, or edema. Neck: Trachea midline, no thyromegaly or masses palpated, and no cervical lymphadenopathy. Supple, full range of motion without nuchal rigidity, or vertebral point tenderness. No Meningismus. Chest/axilla: Normal chest wall appearance and motion. Nontender with no deformity. No lesions are appreciated. Cardiovascular: Regular rate and rhythm with a normal S1 and S2. No gallops, murmurs, or rubs. Normal PMI, no JVD. No pulse deficits. Respiratory: Lungs have equal breath sounds bilaterally, clear to auscultation and percussion. No rales, rhonchi or wheezes noted. No increased work of breathing, no retractions or nasal flaring. Abdomen/GI: Soft, non-tender, with normal bowel sounds. No distension or tympany. No guarding or rebound. No evidence of tenderness throughout. 04:11 Skin: Warm, dry with normal turgor. Normal color with no rashes, no lesions, and no evidence of cellulitis. MS/ Extremity: Pulses equal, no cyanosis. Neurovascular intact. Full, normal range of motion. Neuro: Awake and alert, GCS 15, oriented to person, place, time, and situation. Cranial nerves II-XII grossly intact. Motor strength 5/5 in all extremities. Sensory grossly intact. Cerebellar exam normal. Normal gait. Psych: Awake, alert, with orientation to person, place and time. Behavior, mood, and affect are within normal limits. 04:11 Back: pain, that is mild, of the left flank, ROM is painful, with all movement, normal spinal alignment noted, CVA tenderness, that is mild, is noted on the left, vertebral tenderness, is not appreciated, muscle spasm, is not present, Straight leg raises: of both lower extremities does not illicit pain. Vital Signs: 03:35 BP 156 / 79; Pulse 89; Resp 16 S; Temp 97.6; Pulse Ox 95% on R/A; Weight 84.82 kg; ad5 Height 5 ft. 7 in. (170.18 cm); Pain 5/10; 04:45 BP 146 / 73; Pulse 74; Resp 18; Pulse Ox 98% on R/A; ak2 06:35 BP 139 / 76; Pulse 81; Resp 20; Pulse Ox 98% on R/A; ak2 03:35 Body Mass Index 29.29 (84.82 kg, 170.18 cm) ad5 MDM: 06:15 Differential diagnosis: chronic back pain, Fracture Osteoarthritis Osteoporosis 7 Pyelonephritis ruptured disc, Ureterolithiasis vertebral fracture. Data reviewed: vital signs, nurses notes, old medical records, lab test result(s), CBC, electrolytes, urinalysis, radiologic studies, CT scan, plain films. Data interpreted: Pulse oximetry: on room air is 98 %. Interpretation: normal. Counseling: I had a detailed discussion with the patient and/or guardian regarding: the historical points, exam findings, and any diagnostic results supporting the discharge/admit diagnosis, the presence of at least one elevated blood pressure reading (>120/80) during this emergency department visit, lab results, radiology results, the need for outpatient follow up, an library media specialist, a neurosurgeon. Response to treatment: the patient's symptoms have markedly improved after treatment. 06:18 Patient medically screened. [facility] 04/24 03:37 Order name: Basic Metabolic Panel; Complete Time: 04:27 [facility] 04/24 03:37 Order name: CBC with Diff; Complete Time: 04:27 [facility] 04/24 03:37 Order name: Hepatic Function; Complete Time: 04:27 [facility] 04/24 03:37 Order name: Lipase; Complete Time: 04:27 [facility] 04/24 03:41 Order name: CT Stone Protocol [facility] 04/24 06:05 Order name: Urine Dipstick-Ancillary; Complete Time: 06: EDNC 04/24 03:37 Order name: IV Saline Lock; Complete Time: 03:43 [facility] 04/24 03:37 Order name: Labs collected and sent; Complete Time: 03:43 [facility] 04/24 03:37 Order name: Urine Dipstick-Ancillary (obtain specimen); Complete Time: 05:49 [facility] 04/24 03:41 Order name: CT Lumbar Spine Wo Con [facility] 04/24 04:54 Order name: Chest Single View XRAY [facility] Administered Medications: 03:46 Drug: morphine 2 mg Route: IVP; Site: right antecubital; ak2 03:46 Drug: Zofran (Ondansetron) 4 mg Route: IVP; Site: right antecubital; ak2 Disposition: 04/24/21 06:18 Discharged to Home. Impression: Spinal stenosis, lumbar region. - Condition is Stable. - Discharge Instructions: Back Pain, Adult, [id number]. - Prescriptions for Tylenol 325 mg Oral Tablet - take 2 tablet by ORAL route every 6 hours as needed; 1 bottle. - Medication Reconciliation Form, Thank You Letter, Antibiotic Education, Prescription Opioid Use form. - Follow up: Private Physician; When: 1 - 2 days; Reason: Worsening of condition, Recheck today's complaints, Continuance of care, Re-evaluation by your physician. Follow up: Ceasar Carrera MD; When: 1 - 2 days; Reason: Worsening of condition, Recheck today's complaints. - Problem is an acute exacerbation. - Symptoms have improved. Signatures: Dispatcher [employer] EDMS Brett Lema MD MD 7 Collin Finnegan Anthony sc2 Corrections: (The following items were deleted from the chart) 06:55 06:18 04/24/2021 06:18 Discharged to Home. Impression: Spinal stenosis, lumbar region. ak2 Condition is Stable. Forms are Medication Reconciliation Form, Thank You Letter, Antibiotic Education, Prescription Opioid Use. Follow up: Private Physician; When: 1 - 2 days; Reason: Worsening of condition, Recheck today's complaints, Continuance of care, Re-evaluation by your physician. Follow up: Ceasar Carrera; When: 1 - 2 days; Reason: Worsening of condition, Recheck today's complaints. Problem is an acute exacerbation. Symptoms have improved. mh7
[2021-04-24 07:06] VITALS: BP 139/76; TEMP 97.6; O2SAT 98
--- NOTE | 2021-04-24 10:42 | RAD REPORT ---
EXAM DESCRIPTION: CT - Stone Protocol - 04/24/2021 6:41 am COMPARISON: CT abdomen and pelvis March 09, 2020 CLINICAL HISTORY: [facility] MA[facility] TECHNIQUE: CT of the abdomen and pelvis was acquired without IV contrast material. Coronal and sag ittal reconstructions were obtained. Automated exposure control was utilized on this examination as a dose lowering technique. FINDINGS: Lung bases: A few faint left lower lobe groundglass opacities are noted. Small calcified g ranuloma of the right lower lobe. Mild cardiomegaly with valvular calcifications. *Evaluation of solid organs is limited due to lack of IV contrast. Liver: Stable 1.7 cm hypodensity of the lateral right liver which likely represents a benign cyst or hemangioma. Gallbladder and biliary: Normal gallbladder. Unremarkable biliary tree. Pancreas: Multiple punctate calcifications are noted in the pancreas and likely represent sequelae of prior episodes of pancreatitis. Spleen: Normal. Adrenal glands: Normal adrenal glands. Kidneys: Solitary left kidney with a small cyst. Stomach and Small Bowel: The stomach and small bowel are normal. Urinary bladder: Normal. Prostate/Male Urogenital: A penile pump and reservoir are noted. Colon and Appendix: Severe sigmoid diverticulosis. No evidence of appendicitis. Retroperitoneum and lymph nodes: Normal. Vascular: Severe multivessel calcified atherosclerosis. Peritoneal cavity: No ascites or free air. Musculoskeletal and soft tissues: Soft tissues are unremarkable. A spinal stimulator is in place. No aggressive bone lesions. Lumbar spondylosis with posterior fusion of L3-L5 with L4 laminectomy. No compression fracture. IMPRESSION: 1. No acute intra-abdominal abnormality. 2. A few faint groundglass opacities in the left lower lobe could represent early pneumonia. 3. Mild cardiomegaly. 4. Solitary left kidney. 5. Severe sigmoid diverticulosis. 6. Severe atherosclerosis. Electronically signed by: Khari Lopez MD 04/24/2021 4:44 AM CDT Due to temporary technical issues with the PACS/Fluency reporting system, reports are being signed by the in house radiologist without review as a courtesy to ensure prompt reporting. The interpreting r adiologist is fully responsible for the content of the report.
--- NOTE | 2021-04-24 10:43 | RAD REPORT ---
EXAM DESCRIPTION: CT - Spine Lumbar Wo Con - 04/24/2021 6:41 am COMPARISON: CT abdomen pelvis March 09, 2020 CLINICAL HISTORY: [facility] MAIN PAIN TECHNIQUE: Axial CT images were obtained through the entire lumbar spine without contrast. Sagitta l and coronal reconstructions are provided. Automated exposure control was utilized on this examinati on as a dose lowering technique. FINDINGS: Vertebrae: There is posterior fusion of L3-L5 with interdisc spacer at L4-L5 and L4 lami nectomy. Left L5 hemilaminectomy is present. There is 3 mm anterolisthesis L4 on L5. No acute fractur e, dislocation or destructive osseous process is present. Spinal canal, foramina, and facet joints: Severe spinal canal stenosis is noted at L2-L3 due to disc bulge and ligamentous and facet hypertroph y. Up to moderate to severe foraminal stenosis at L5-S1. Paraspinous soft-tissues: Severe calcified atherosclerosis is present. Solitary left kidney. Other Findings: A spinal stimulator is in place in the left flank. IMPRESSION: 1. No acute fracture or subluxation. 2. Surgical changes of the lumbar spine. 3. Severe spinal canal stenosis at L2-L3 with moderate to severe foraminal stenoses at L5-S1. 4. Severe atherosclerosis. Electronically signed by: Khari Lopez MD 04/24/2021 4:55 AM CDT Due to temporary technical issues with the PACS/Fluency reporting system, reports are being signed by the in house radiologist without review as a courtesy to ensure prompt reporting. The interpreting r adiologist is fully responsible for the content of the report.
--- NOTE | 2021-04-24 10:47 | RAD REPORT ---
EXAM DESCRIPTION: RAD - Chest Single View - 04/24/2021 5:12 am COMPARISON: Chest radiograph September 24, 2020 report only CLINICAL HISTORY: CONGESTION FINDINGS: A single AP view of the chest demonstrates a mildly enlarged cardiomediastinal silhouette. No pneumothorax or pleural effusion. No consolidation or pulmonary edema. Osseous structures are intact. IMPRESSION: Mild cardiomegaly without other acute chest process. Electronically signed by: Khari Lopez MD 04/24/2021 5:25 AM CDT Due to temporary technical issues with the PACS/Fluency reporting system, reports are being signed by the in house radiologist without review as a courtesy to ensure prompt reporting. The interpreting r adiologist is fully responsible for the content of the report.
== END 2021-04-24 06:55 | disposition home or self-care (01) ==
LOC: ER 03:31
DX: M48.061 Spinal stenosis, lumbar region without neurogenic claudication (principal); E11.22 Type 2 diabetes mellitus with diabetic chronic kidney disease; I13.0 Hypertensive heart and chronic kidney disease with heart failure and stage 1 through stage 4 chronic kidney disease, or unspecified chronic kidney disease; N18.9 Chronic kidney disease, unspecified; I50.9 Heart failure, unspecified
CPT/HCPCS: 85025; 80048; 36415; 80076; 81003; 83690; 72131; 76377; 74176; 71045; J2270; J2405; 96374; 96375; 99284

== ENCOUNTER 2021-08-03 13:02 | Emergency (ER) | payer OTHER ==
--- NOTE | 2021-08-03 16:09 | ER ---
Nurse's Notes [facility] Name: Demetrius Sarmiento Age: 81 yrs Sex: Male : 1940 Arrival Date: 08/03/2021 Time: 13:06 Bed 20 Private MD: Diagnosis: Achilles tendinitis;Achilles tendinitis, right leg Presentation: 08/03 13:12 Chief complaint: Patient states: left foot pain that began last night, aggravated by aa5 weight bearing. Pt denies known injury. Coronavirus screen: At this time, the client does not indicate any symptoms associated with coronavirus-19. Ebola Screen: Patient negative for fever greater than or equal to 101.5 degrees Fahrenheit, and additional compatible Ebola Virus Disease symptoms. Initial Sepsis Screen: Does the patient meet any 2 criteria? HR > 90 bpm. Does the patient have a suspected source of infection? No. Patient's initial sepsis screen is negative. Risk Assessment: Do you want to hurt yourself or someone else? Patient reports no desire to harm self or others. Onset of symptoms was July 2021. 13:12 Method Of Arrival: Wheelchair aa5 13:12 Acuity: LANCE 3 aa5 Triage Assessment: 13:15 General: Appears in no apparent distress. uncomfortable, Behavior is calm, cooperative, bp appropriate for age. Pain:. 13:15 Pain: Complains of pain in left foot. EENT: No deficits noted. Neuro: Level of bp Consciousness is awake, alert, obeys commands, Oriented to Appropriate for age. Cardiovascular: No deficits noted. Respiratory: No deficits noted. GI: No signs and/or symptoms were reported involving the gastrointestinal system. : No signs and/or symptoms were reported regarding the genitourinary system. Derm: No deficits noted. Musculoskeletal: Reports pain in left foot. Injury Description: NO TRAUMA. Historical: - Allergies: 13:13 No Known Allergies; aa5 - PMHx: 13:13 CAD; cardiac arrest; CHF; chronic kidney disease; Chronic pain; Diabetes - IDDM; High aa5 Cholesterol; Hypertension; Myocardial infarction; - Immunization history:: Client reports having NOT received the Covid vaccine. - Social history:: Smoking status: Patient/guardian denies using tobacco, but has a distant history of tobacco abuse. Screenin:15 Abuse screen: Denies threats or abuse. Denies injuries from another. Nutritional bp screening: No deficits noted. Tuberculosis screening: No symptoms or risk factors identified. Fall Risk None identified. Assessment: 13:15 General: SEE TRIAGE NOTE. bp 14:41 Reassessment: No changes from previously documented assessment. Patient and/or family bp updated on plan of care and expected duration. Pain level reassessed. 15:38 Reassessment: No changes from previously documented assessment. Patient and/or family bp updated on plan of care and expected duration. Pain level reassessed. XRAY COMPLETE, RAD RESULTS PENDING. 16:29 Reassessment: PT D/C HOME AMBULATORY, DX WITH ACHILLES TENDONITIS. bp Vital Signs: 13:12 BP 130 / 86; Pulse 115; Resp 16 S; Temp 98.7(O); Pulse Ox 98% on R/A; Weight 79.38 kg aa5 (R); Height 5 ft. 8 in. (172.72 cm) (R); 15:30 BP 127 / 85; Pulse 99; Resp 17; Pulse Ox 98% ; bp 16:30 BP 131 / 79; Pulse 91; Resp 17; Temp 98.5; Pulse Ox 99% ; bp 13:12 Body Mass Index 26.61 (79.38 kg, 172.72 cm) aa5 ED Course: 13:06 Patient arrived in ED. am2 13:12 Arm band placed on. aa5 13:13 Triage completed. aa5 13:15 Patient has correct armband on for positive identification. Bed in low position. Call bp light in reach. Side rails up X2. 13:18 Esteban Martinez MD is Attending Physician. kdr 13:19 Stewart Hoffmann, HERBIE is Primary Nurse. bp 15:21 Ankle Left 3 View In Process Unspecified. EDMS 16:30 No provider procedures requiring assistance completed. Patient did not have IV access bp during this emergency room visit. Administered Medications: 16:10 Drug: Ibuprofen 600 mg Route: PO; bp 16:28 Follow up: Response: No adverse reaction bp 16:15 Drug: predniSONE 20 mg Route: PO; bp 16:29 Follow up: Response: No adverse reaction bp Outcome: 16:08 Discharge ordered by . kdr 16:30 Discharged to home ambulatory. bp 16:30 Condition: stable 16:30 Discharge instructions given to patient, Instructed on discharge instructions, Demonstrated understanding of instructions, follow-up care, medications, Prescriptions given X 2. 16:31 Patient left the ED. bp Signatures: Dispatcher [employer] EDMS Esteban Martinez MD MD [facility] Kezia Villarreal, RN RN aa5 Ruchi Ribeiro am2 Stewart Hoffmann RN RN bp
--- NOTE | 2021-08-03 16:09 | EDPHYS ---
Physician Documentation [facility] Name: Demetrius Sarmiento Age: 81 yrs Sex: Male : 1940 Arrival Date: 08/03/2021 Time: 13:06 Bed 20 Private MD: ED Physician Esteban Martinez HPI: 08/03 16:03 This 81 yrs old Male presents to ER via Wheelchair with complaints of Foot kdr Pain. 16:03 The patient presents with decreased range of motion, pain. The complaints affect the kdr left foot, left Achilles. Context: The problem was sustained at home, resulted from an unknown cause, the patient can fully bear weight, the patient is able to ambulate, with mild difficulty. Onset: The symptoms/episode began/occurred gradually, last night. Modifying factors: The symptoms are alleviated by nothing, the symptoms are aggravated by The patient has the most discomfort when the area is palpated. The area that is most sensitive is around the Achilles tendon insertion. Associated signs and symptoms: The patient has no apparent associated signs or symptoms. Severity of symptoms: At their worst the symptoms were mild, in the emergency department the symptoms are unchanged. The patient has not experienced similar symptoms in the past. The patient has not recently seen a physician. Historical: - Allergies: 13:13 No Known Allergies; aa5 - PMHx: 13:13 CAD; cardiac arrest; CHF; chronic kidney disease; Chronic pain; Diabetes - IDDM; High aa5 Cholesterol; Hypertension; Myocardial infarction; - Immunization history:: Client reports having NOT received the Covid vaccine. - Social history:: Smoking status: Patient/guardian denies using tobacco, but has a distant history of tobacco abuse. ROS: 16:03 Constitutional: Negative for fever, chills, and weight loss, Eyes: Negative for injury, kdr pain, redness, and discharge, Neck: Negative for injury, pain, and swelling, Cardiovascular: Negative for chest pain, palpitations, and edema. 16:03 MS/extremity: Positive for of the right Achilles. Exam: 16:03 Constitutional: This is a well developed, well nourished patient who is awake, alert, kdr and in no acute distress. 16:03 Musculoskeletal/extremity: ROM: no acute changes, Tendon exam: postive for Tenderness over the distal Achilles tendon insertion. Vital Signs: 13:12 BP 130 / 86; Pulse 115; Resp 16 S; Temp 98.7(O); Pulse Ox 98% on R/A; Weight 79.38 kg aa5 (R); Height 5 ft. 8 in. (172.72 cm) (R); 15:30 BP 127 / 85; Pulse 99; Resp 17; Pulse Ox 98% ; bp 16:30 BP 131 / 79; Pulse 91; Resp 17; Temp 98.5; Pulse Ox 99% ; bp 13:12 Body Mass Index 26.61 (79.38 kg, 172.72 cm) aa5 MDM: 16:03 Data reviewed: vital signs, nurses notes, radiologic studies. Counseling: I had a kdr detailed discussion with the patient and/or guardian regarding: the historical points, exam findings, and any diagnostic results supporting the discharge/admit diagnosis, radiology results, the need for outpatient follow up. 16:08 Patient medically screened. kdr 08/03 15:02 Order name: Ankle Left 3 View EDMS Administered Medications: 16:10 Drug: Ibuprofen 600 mg Route: PO; bp 16:28 Follow up: Response: No adverse reaction bp 16:15 Drug: predniSONE 20 mg Route: PO; bp 16:29 Follow up: Response: No adverse reaction bp Disposition Summary: 08/03/21 16:08 Discharge Ordered Location: Home kdr Problem: new kdr Symptoms: have improved kdr Condition: Stable kdr Diagnosis - Achilles tendinitis kdr - Achilles tendinitis, right leg kdr Followup: kdr - With: Private Physician - When: 2 - 3 days - Reason: If symptoms return, Further diagnostic work-up, Recheck today's complaints, Continuance of care, Re-evaluation by your physician Discharge Instructions: - Discharge Summary Sheet kdr - Achilles Tendinitis kdr Forms: - Medication Reconciliation Form kdr - Thank You Letter kdr Prescriptions: - Ibuprofen 600 mg Oral Tablet - take 1 tablet by ORAL route every 6 hours As needed take with food; 30 tablet; kdr Refills: 0, Product Selection Permitted - Prednisone 20 mg Oral Tablet - take 1 tablet by ORAL route once daily for 5 days; 5 tablet; Refills: 0, kdr Product Selection Permitted Signatures: [facility] Esteban Martinez MD MD kdr Kezia Villarreal RN RN aa5 Stewart Hoffmann RN RN bp Corrections: (The following items were deleted from the chart) 15:02 14:41 Foot Left 3 View+[email or web address] ordered. EDMS EDMS
--- NOTE | 2021-08-03 16:13 | RAD REPORT ---
EXAM DESCRIPTION: RAD - Ankle Left 3 View - 08/03/2021 3:21 pm CLINICAL HISTORY: PAIN COMPARISON: No comparisons FINDINGS: No fracture, dislocation or periosteal reaction. No joint effusion seen. No joint space na rrowing. No soft tissue abnormality. IMPRESSION: Negative left ankle for fracture or other acute finding.
[2021-08-03] MEDS ORDERED: IBUPROFEN 200 MG TAB PO ONE (16:33)
[2021-08-03] MEDS ORDERED: IBUPROFEN 400 MG TAB ONE (16:33)
[2021-08-03 16:39] VITALS: BP 131/79; TEMP 98.5; O2SAT 99
[2021-08-03] MEDS ORDERED: predniSONE 20 MG TAB ONE (16:41)
== END 2021-08-03 16:31 | disposition home or self-care (01) ==
LOC: ER 13:02
DX: M76.62 Achilles tendinitis, left leg (principal); I10 Essential (primary) hypertension
CPT/HCPCS: 99283; J7512

== ENCOUNTER 2021-10-25 01:53 | Inpatient (IN) | payer OTHER ==
[2021-10-25] MEDS ORDERED: ASPIRIN 81 MG CHEWABLE TABLET ONE (02:06)
[2021-10-25] MEDS ORDERED: MORPHINE 2 MG/ML SYR ONE ×2 (02:06→03:11)
--- OUTSIDE RECORDS SUMMARY | 2021-10-25 02:07 | XMS REPORT | Continuity of Care Document ---
:1940 Author Organization [facility] t Address [address] [place] [address] Care Team Providers Name Role Phone ATTAR Primary Care Physician Unavailable Pcp, Does Not Have A Attending Clinician Ceasar Meeks Attending Clinician Vidal WOOTEN S Attending Clinician Umang WOOTEN Attending Clinician Sandra WOOTEN T Attending Clinician Ariel STONER Attending Clinician Babar GONG Attending Clinician SANDRA T Attending Clinician Unavailable Kamryn GONG, B Attending Clinician Sharon HARRY Attending Clinician Unavailable Maribell_P Attending Clinician Unavailable Silvina STONER, M Attending Clinician Julio Cesar WOOTEN Attending Clinician JULIO CESAR Attending Clinician Unavailable Ricardo STONER Attending Clinician Unavailable Simi Urrutia MD Attending Clinician Steven WOOTEN Attending Clinician STEVEN Attending Clinician Unavailable CHAVA Attending Clinician Unavailable Chava WOOTEN Attending Clinician Wes STONER Attending Clinician Doctor Unassigned, Name Attending Clinician Unavailable Justina Flores MD Admitting Clinician Justina FLORES Admitting Clinician Unavailable Sharon HARRY Admitting Clinician Unavailable Clair Admitting Clinician Unavailable Julio Cesar WOOTEN Admitting Clinician JULIO CESAR Admitting Clinician Unavailable Steven WOOTEN Admitting Clinician STEVEN Admitting Clinician Unavailable Payers Payer Name Policy Type Policy Number Effective Date Expiration Date [facility] [id number] 2019 DUAL COMPLETE HMO 00:00:00 [place]ICAID OF [place] [id number] 2018 00:00:00 Problems Condition Condition Condition Status Onset Resolution Last Treating Co mments Source Name Details Category Date Date Treatment Clinician Date Unstable Unstable Disease Active 2020-0 Unive rs angina angina 5-07 ity of 00:00: [place] [facility] ALBA (acute ALBA (acute Disease Active 2020-0 U nivers kidney kidney 4-21 ity of injury) injury) 00:00: [place] [facility] Chest pain Chest pain Disease Active 2020-0 U nivers 4-21 ity of 00:00: [place] [facility] Chest pain Chest pain Disease Active 2020-0 U 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 4-15 it y of 00:00: [place] [facility] 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 3-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 00:00: 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 2018-11 U nivers lobe lobe 1-06 it[place] of pneumonia pneumonia 00:00[place] [facility] PNA PNA Disease Active 2018-11 Univers (pneumonia (pneumonia 0-25 it y of ) ) 00:00: [place] 00 Medical Branch Acute on Acute on Disease Active 2018-11 Unive rs chronic chronic 0-25 ity of combined combined 00:00: [place] systolic systolic 00 Medica l and and Branch 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 Dyspnea Dyspnea Disease Active 2018-11 Univers 0-23 ity of 00:00: [place] [facility] CHF CHF Disease Active Univers exacerbati exacerbati 2-17 it y of on on 00:00: [place] [facility] Essential Essential Disease Active Uni vers hypertensi hypertensi 2-17 it y of on on 00:00: [place] [facility] 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 00:00: [place] without without 00 Medical complicati complicati Br anch on, on, without without long-term long-term current current use of use of insulin insulin CHF CHF Disease Active Univers exacerbati exacerbati 2-17 it y of on on 00:00: [place] [facility] Acute on Acute on Disease Active Unive rs chronic chronic 1-28 ity of systolic systolic 00:00: [place] CHF CHF 00 Medical (congestiv (congestiv Br anch e heart e heart failure) failure) Elevated Elevated Disease Active Unive rs troponin I troponin I 1-27 it y of level level 00:00: [place] [facility] DE LA CRUZ DE LA CRUZ Disease Active Univers (dyspnea (dyspnea 1-27 ity of on on 00:00: [place] exertion) exertion) 00 Medi birdie Branch Coronary Coronary Disease Active Unive rs artery artery 1-27 ity of disease disease 00:00: [place] involving involving 00 Medi birdie [place] Branch 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 00:00: [place] disease disease 00 Medical Branch Coronary Coronary Disease Active Unive rs artery artery 1-27 ity of disease disease 00:00: [place] involving involving 00 Medi birdie [place] Branch 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 NSTEMI NSTEMI Disease Active Univers (non-ST (non-ST 1-26 ity of elevated elevated 00:00: [place] myocardial myocardial 00 Me dical infarction infarction Br anch ) ) NSTEMI NSTEMI Disease Active Univers (non-ST (non-ST 1-26 ity of elevated elevated 00:00: [place] myocardial myocardial 00 Me dical infarction infarction Br anch ) ) 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 4-10 it y of y ath 00:00: [place] associated associated 00 Me dical with type with type Bran ch 2 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 4-10 it y of 00:00: [place] associated associated 00 Me dical with type with type Bran ch 2 diabetes 2 diabetes mellitus mellitus Routine Routine Problem Active [facility] On home On home Problem Active [facility] oxygen oxygen [facility] therapy therapy [facility] Coronary Coronary Problem Active [facility] artery artery [facility] disease disease [facility] involving involving l [place] Outpati coronary coronary ent artery of artery of Clin ics [place] heart, heart, angina angina presence presence unspecifie unspecifie d d S/P S/P Problem Active [facility] coronary coronary [facility] artery artery Memoria stent stent l placement placement Out[facility] at[facility] ent Clinics 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 [facility] - diabetes diabetes Memori a mellitus mellitus l with with Outpati hyperglyce hyperglyce en t [facility] Need for Need for Problem Active [facility] dental [facility] History of History of Problem Active [facility] prostate prostate [facility] Alzheimer Alzheimer Problem Active [facility] disease disease [facility] Diabetes Diabetes Problem [facility] Heart Heart Problem Active [facility] disease disease [facility] Heart Heart Problem Active [facility] attack attack [facility] Blurry Blurry Problem Active [facility] vision, vision, [facility] bilateral bilateral [facility] Chronic Chronic Problem Active [facility] pain pain [facility] syndrome syndrome [facility] Allergies, Adverse Reactions, Alerts Allergy Allergy Status Severity Reaction(s) Onset Inactive Treating Comm ents Source Name Type Date Date Clinician NO KNOWN Drug Active Univers ALLERGIE Class ity of S [facility] Social History Social Habit Start Date Stop Date Quantity Comments Source Exposure to Not sure [facility] SARS-CoV-2 (event) [facility] History of tobacco User of Univer sity of use smokeless [facility] tobacco [place] Alcohol intake 2020-06-26 2020-06-26 Current University of 00:00:00 00:00:00 non-drinker of [facility] [place] [facility] alcohol [place] (finding) Cigarettes smoked 2020-06-26 2020-06-26 [facility] ity of current (pack per 00:00:00 00:00:00 [facility] ) - Reported Branch Cigarette 2020-06-26 2020-06-26 University of pack-years 00:00:00 00:00:00 [facility] Tobacco use and 2020-06-26 2020-06-26 Former user Universi ty of exposure 00:00:00 00:00:00 [facility] Sex Ass[birth year] At [birth year] Universit y of 00:00:00 00:00:00 [facility] Smoking Status Start Date Stop Date Source Former smoker 2020-06-26 00:00:00 2020-06-26 00:00:00 [facility] Medications Ordered Filled Start Stop Current Ordering Indication Dosage Frequency Signature Comments Components Source Medication Medication Date Date Medication? Clinician (SIG) Name Name morpHINE 2020- No 4mg 4 mg, Slow Un mel injection 4 04-25 IV Push, ity of mg 23:15: 22:23 ONCE, 1 [place] 00 :00 dose, Madhavi Medical 04/25/21 at Branch 1815, STAT acetaminoph 2020- No 1{tbl} 1 tablet, Univers en-codeine 04-25 Oral, ity of (TYLENOL 19:00: 17:52 ONCE, 1 [place] #3) 300-30 00 :00 dose, Madhavi Medi birdie mg tablet 1 04/25/21 at Br anch tablet 1400, [place] cyclobenzap 2020- No 10mg 10 mg, Uni vers rine 6-10 06-10 Oral, ONCE ity of (FLEXERIL) 19:00: 17:52 NOW, 1 [place] tablet 10 00 :00 dose, Madhavi Medic al mg 04/25/21 at Branch 1400, ADAMA acetaminoph 0 Yes [id number] 1{tbl} Take 1 Un mel en-codeine 6-10 tablet by ity of 300-30 mg 00:00: mouth [place] tablet 00 every 6 Medical (six) Branch hours as needed for Pain (scale 4-6). Indication s: acute pain, left sided low back pain cyclobenzap Yes [id number] 5mg Take 1 Univers rine 5 mg 6-10 tablet by ity o f tablet 00:00: mouth 3 [place] 00 (three) Medical times Branch daily. acetaminoph Yes [id number] 1{tbl} Take 1 Un mel en-codeine 6-10 tablet by ity of 300-30 mg 00:00: mouth [place] tablet 00 every 6 Medical (six) Branch hours as needed for Pain (scale 4-6). Indication s: acute pain, left sided low back pain cyclobenzap Yes [id number] 5mg Take 1 Univers rine 5 mg 6-10 tablet by ity o f tablet 00:00: mouth 3 [place] 00 (three) Medical times Branch daily. acetaminoph 2019-0 Yes [id number] 1{tbl} Take 1 Un mel en-codeine 8-11 tablet by ity of (TYLENOL-CO 00:00: mouth [place] DEINE #3) 00 every 6 Medical 300-30 mg (six) Branch tablet hours as needed for Pain (scale 7-10). Indication s: acute pain acetaminoph 2019-0 Yes 4647 1{tbl} Take 1 Un mel en-codeine 8-11 tablet by ity of (TYLENOL-CO 00:00: mouth [place] DEINE #3) 00 every 6 Medical 300-30 mg (six) Branch tablet hours as needed for Pain (scale 7-10). Indication s: acute pain acetaminoph 2019-0 Yes 4647 1{tbl} Take 1 Un mel en-codeine 8-11 tablet by ity of (TYLENOL-CO 00:00: mouth [place] DEINE #3) 00 every 6 Medical 300-30 mg (six) Branch tablet hours as needed for Pain (scale 7-10). Indication s: acute pain acetaminoph 2019-0 2019- No 1000mg 1,000 mg, Univers en 05-24- Oral, ity of (TYLENOL) 16:00: 14:49 ONCE, 1 [place] tablet 00 :00 dose, Madhavi Medical 1,000 mg 05/24/20 at Branch 1100, [place] traMADol 50 2019-0 2019- No 4647 50mg Take 1 Uni vers mg tablet 05-24 tablet by ity of 00:00: 04:59 mouth [place] 00 :00 every 8 Medical (eight) Branch hours as needed for Pain (scale 4-6) for up to 5 days. Indication s: acute pain insulin 2020-0 Yes 30U 30 Units, Unive rs glargine 03-24 Subcutaneo ity o f (LANTUS 14:00: us, DAILY, [place] U-100) 00 First dose Medical injection on [facility] Branch 30 Units 03/24/20 at 0900, Until Discontinu ed clopidogreL 2020-0 Yes 75mg 75 mg, Univ ers (PLAVIX) 03-24 Oral, ity of tablet 75 14:00: DAILY, [place] mg 00 First dose Medical on [facility] Branch 03/24/20 at 0900, Until Discontinu ed, Routine insulin 2020-0 Yes 30U 30 Units, Unive rs glargine 03-24 Subcutaneo ity o f (LANTUS 14:00: [place], DAILY, [place] U-100) 00 First dose Medical injection on [facility] Branch 30 Units 03/24/20 at 0900, Until Discontinu ed clopidogreL 2020-0 Yes 75mg 75 mg, Univ ers (PLAVIX) 03-24 Oral, ity of tablet 75 14:00: DAILY, [place] mg 00 First dose Medical on [facility] 03/24/20 at 0900, Until Discontinu ed, Routine MULTIVITAMI 2020-0 2020- No Take by U nivers N ORAL 03-24 05-08 mouth. ity of 03:38: 00:00 [place] 54 :00 Medical Branch MULTIVITAMI 2020-0 Yes Take by Un mel N ORAL - mouth. ity of 02:01: [place] 35 Medical Branch atorvastati 2020-0 Yes 40mg 40 mg, Univ ers n (LIPITOR) 5-09 Oral, QHS, it y of tablet 40 02:00: First [place] mg 00 on Thu Medical 03/23/20 at [place] 2100, Until Discontinu ed, Routine atorvastati 2020-0 Yes 40mg 40 mg, Univ ers n (LIPITOR) 5-09 Oral, QHS, it y of tablet 40 02:00: First dose [place] mg 00 on Fri Medical 03/23/20 at [place] 2100, Until Discontinu ed, Routine aspirin 81 2019-0 Yes [id number] 81mg Take 1 U nivers mg chewable 5-09 tablet by ity of tablet 00:00: mouth [place] 00 daily with Medical breakfast. [place] furosemide 2020-0 Yes [id number] 20mg Take 1 U nivers 20 mg 5-09 tablet by ity of tablet 00:00: mouth [place] 00 daily. [facility] aspirin 81 2020-0 Yes [id number] 81mg Take 1 U nivers mg chewable 5-09 tablet by ity of tablet 00:00: mouth [place] 00 daily with Medical breakfast. [place] furosemide 2020-0 Yes [id number] 20mg Take 1 U nivers 20 mg 5-09 tablet by ity of tablet 00:00: mouth [place] 00 daily. [facility] aspirin 81 2020-0 Yes [id number] 81mg Take 1 U nivers mg chewable 5-09 tablet by ity of tablet 00:00: mouth [place] 00 daily with Medical breakfast. [place] furosemide 2020-0 Yes [id number] 20mg Take 1 U nivers 20 mg 5-09 tablet by ity of tablet 00:00: mouth [place] 00 daily. [facility] aspirin 81 2020-0 Yes [id number] 81mg Take 1 U nivers mg chewable 5-09 tablet by ity of tablet 00:00: mouth [place] 00 daily with Medical breakfast. [place] furosemide 2020-0 Yes [id number] 20mg Take 1 U nivers 20 mg 5-09 tablet by ity of tablet 00:00: mouth [place] 00 daily. [facility] aspirin 81 2020-0 Yes [id number] 81mg Take 1 U nivers mg chewable 5-09 tablet by ity of tablet 00:00: mouth [place] 00 daily with Medical breakfast. [place] furosemide 2020-0 Yes [id number] 20mg Take 1 U nivers 20 mg 5-09 tablet by ity of tablet 00:00: mouth [place] 00 daily. Medical Branch aspirin 81 2020-0 Yes [id number] 81mg Take 1 U nivers mg chewable 5-09 tablet by ity of tablet 00:00: mouth [place] 00 daily with Medical breakfast. Branch furosemide 2020-0 Yes [id number] 20mg Take 1 U nivers 20 mg 5-09 tablet by ity of tablet 00:00: mouth [place] 00 daily. Medical Branch aspirin 81 2020-0 Yes [id number] 81mg Take 1 U nivers mg chewable 5-09 tablet by ity of tablet 00:00: mouth [place] 00 daily with Medical breakfast. Branch furosemide 2020-0 Yes [id number] 20mg Take 1 U nivers 20 mg 5-09 tablet by ity of tablet 00:00: mouth [place] 00 daily. Medical Branch aspirin 81 2020-0 Yes [id number] 81mg Take 1 U nivers mg chewable 5-09 tablet by ity of tablet 00:00: mouth [place] 00 daily with Medical breakfast. Branch furosemide 2020-0 Yes [id number] 20mg Take 1 U nivers 20 mg 5-09 tablet by ity of tablet 00:00: mouth [place] 00 daily. Medical Branch aspirin 81 2020-0 Yes [id number] 81mg Take 1 U nivers mg chewable 5-09 tablet by ity of tablet 00:00: mouth [place] 00 daily with Medical breakfast. Branch furosemide 2020-0 Yes [id number] 20mg Take 1 U nivers 20 mg 5-09 tablet by ity of tablet 00:00: mouth [place] 00 daily. Medical Branch isosorbide 2020-0 2020- No [id number] 90mg Take 3 Univers mononitrate 5-09 05-08 tablets by i ty of 30 mg 24 hr 00:00: 00:00 mouth [place] tablet 00 :00 daily. Medical Branch isosorbide 2020-0 2020- No [id number] 90mg Take 3 Univers mononitrate 5-09 05-08 tablets by i ty of 30 mg 24 hr 00:00: 00:00 mouth [place] tablet 00 :00 daily. Medical Branch maalox/lido 2020-0 2020- No 5mL 5 mL, Univ ers sydni 2 5-08 05-08 Oral, ity of %viscous 20:45: 20:56 ONCE, 1 1:1 00 :00 dose, Fri Medical suspension 03/23/20 at [facility] (COMPOUNDED 1545, ) Routine maalox/lido 2020-0 2020- No 5mL 5 mL, Univ ers sydni 2 03-23- Oral, ity of %viscous 20:45: 20:56 ONCE, 1 [place] 1:1 00 :00 dose, Fri Medical suspension 03/23/20 at [facility] (COMPOUNDED 1545, ) Routine acetaminoph 2020-0 Yes 875mg 900 mg Uni vers en 08 (rounded ity of (TYLENOL) 20:00: [place] 875 [place] tablet 900 00 mg), Oral, Med ical mg Q8H, First Branch dose on Thu03/23/20 at 1500, Until Discontinu ed, Routine acetaminoph 2020-0 Yes 875mg 900 mg Uni vers en 03-23 (rounded ity of (TYLENOL) 20:00: from 875 [place] tablet 900 00 mg), Oral, Med ical mg Q8H, First Branch dose on Thu03/23/20 at 1500, Until Discontinu ed, Routine lidocaine 2020-0 2020- No 1{patch 1 Patch, Univers (LIDODERM) 03-23 } Topical, ity of 5 % (700 19:46: 08:56 Administer [place] mg/patch) 00 :00 over 12 Medical patch 1 Hours, Branch Patch ONCE, 1 dose, Thu03/23/20 at 1500, Routine lidocaine 2020-0 2020- No 1{patch 1 Patch, Univers (LIDODERM) 03-23 } Topical, ity of 5 % (700 19:46: 08:56 Administer [place] mg/patch) 00 :00 over 12 Medical patch 1 Hours, Branch Patch ONCE, 1 dose, Thu03/23/20 at 1500, Routine perflutren 2020-0 2020- No 2mL 2 mL, IV Un mel lipid 03-23-08 Push, ity of microsphere 15:30: 14:00 ONCE, 1 [place] 00 :00 dose, Fri Medical (DEFINITY) 03/23/20 at [facility] injection 2 1030, mL Routine perflutren 2020-0 2020- No 2mL 2 mL, IV Un mel lipid 03-23-08 Push, ity of microsphere 15:30: 14:00 ONCE, 1 [place] 00 :00 dose, Fri Medical (DEFINITY) 03/23/20 at Bran ch injection 2 1030, mL Routine isosorbide 2020-0 Yes 90mg 90 mg, Unive rs mononitrate 5-08 Oral, ity of (IMDUR) 24 14:30: DAILY, [place] hr tablet 00 First dose Medi birdie 90 mg on Thu Branch 03/23/20 at 0930, Until Discontinu ed, Routine isosorbide 2020-0 Yes 90mg 90 mg, Unive rs mononitrate 5-08 Oral, ity of (IMDUR) 24 14:30: DAILY, [place] hr tablet 00 First dose Medi birdie 90 mg on Thu Branch 03/23/20 at 0930, Until Discontinu ed, Routine vitamin 2020-0 Yes 1000ug 1,000 mcg, Un mel B-12 5-08 Oral, ity of (CYANOCOBAL 14:00: DAILY, [place] RAZA) 00 First dose Medical tablet on Thu Branch 1,000 mcg 03/23/20 at 0900, Until Discontinu ed, Routine KCL 2020-0 Yes 10meq 10 mEq, Univers (KLOR-CON 5-08 Oral, ity of M10) tablet 14:00: DAILY, [place] 10 mEq 00 First dose Medical on Thu Branch 03/23/20 at 0900, Until Discontinu ed, Routine magnesium 2020-0 Yes 400mg 400 mg, Univ ers oxide 5-08 Oral, ity of (MAG-OX 14:00: DAILY, [place] 400) tablet 00 First dose Me dical 400 mg on Thu Branch 03/23/20 at 0900, Until Discontinu ed furosemide 2020-0 Yes 20mg 20 mg, Unive rs (LASIX) 5-08 Oral, ity of tablet 20 14:00: DAILY, [place] mg 00 First dose Medical on Thu Branch 03/23/20 at 0900, Until Discontinu ed, Routine donepezil 2020-0 Yes 5mg 5 mg, Univers (ARICEPT) 5-08 Oral, ity of tablet 5 mg 14:00: DAILY, [place] 00 First dose Medical on Thu Branch 03/23/20 at 0900, Until Discontinu ed, Routine vitamin 2020-0 Yes 1000ug 1,000 mcg, Un mel B-12 5-08 Oral, ity of (CYANOCOBAL 14:00: DAILY, [place] RAZA) 00 First dose Medical tablet on Thu 1,000 mcg 03/23/20 at 0900, Until Discontinu ed, Routine KCL 2020-0 Yes 10meq 10 mEq, Univers (KLOR-CON 5-08 Oral, ity of M10) tablet 14:00: DAILY, [place] 10 mEq 00 First dose Medical on Thu Branch 03/23/20 at 0900, Until Discontinu ed, Routine magnesium 2020-0 Yes 400mg 400 mg, Univ ers oxide 5-08 Oral, ity of (MAG-OX 14:00: DAILY, [place] 400) tablet 00 First dose Me dical 400 mg on Thu Branch 03/23/20 at 0900, Until Discontinu ed furosemide 2020-0 Yes 20mg 20 mg, Unive rs (LASIX) 5-08 Oral, ity of tablet 20 14:00: DAILY, [place] mg 00 First dose Medical on Thu03/23/20 at 0900, Until Discontinu ed, Routine donepezil 2020-0 Yes 5mg 5 mg, Univers (ARICEPT) 5-08 Oral, ity of tablet 5 mg 14:00: DAILY, [place] 00 First dose Medical on Thu Branch 03/23/20 at 0900, Until Discontinu ed, Routine Sliding 2020-0 Yes Subcutaneo Univ ers Scale 5-08 us, TID ity of Insulin - 13:00: MEALS+HS, [place] Aspart 00 First dose Medical (NOVOLOG) + on Thu Fsbg 03/23/20 at Testing 0800, Until Discontinu ed, Routine ranolazine 2020-0 Yes 1000mg 1,000 mg, Univers (RANEXA) 12 5-08 Oral, ity of hr tablet 13:00: Q12H, [place] 1,000 mg 00 First dose Medic al on Thu Branch 03/23/20 at 0800, Until Discontinu ed, Routine metoprolol 2020-0 Yes 25mg 25 mg, Unive rs succinate 5-08 Oral, BID, ity of XL (TOPROL 13:00: First dose [place] XL) tablet 00 on Thu Medical 25 mg 03/23/20 at Branch 0800, Until Discontinu ed, Routine aspirin 2020-0 Yes 81mg 81 mg, Univers chewable 5-08 Oral, QAM ity of tablet 81 13:00: WITH [place] mg 00 BREAKFAST, Medical First dose Branch on Thu03/23/20 at 0800, Until Discontinu ed, Routine Sliding 2020-0 Yes Subcutaneo Univ ers Scale 5-08 us, TID ity of Insulin - 13:00: MEALS+HS, [place] Aspart 00 First dose Medical (NOVOLOG) + on Thu Branch Fsbg 03/23/20 at Testing 0800, Until Discontinu ed, Routine ranolazine 2020-0 Yes 1000mg 1,000 mg, Univers (RANEXA) 12 -08 Oral, ity of hr tablet 13:00: Q12H, [place] 1,000 mg 00 First dose Medic al on Thu Branch 03/23/20 at 0800, Until Discontinu ed, Routine metoprolol 2020-0 Yes 25mg 25 mg, Unive rs succinate 5-08 Oral, BID, ity of XL (TOPROL 13:00: First dose [place] XL) tablet 00 on Thu Medical 25 mg 03/23/20 at Branch 0800, Until Discontinu ed, Routine aspirin 2020-0 Yes 81mg 81 mg, Univers chewable 03-23 Oral, QAM ity of tablet 81 13:00: WITH [place] mg 00 BREAKFAST, Medical First dose Branch on Thu03/23/20 at 0800, Until Discontinu ed, Routine clopidogreL 2020-0 2020- No 300mg 300 mg, U nivers (PLAVIX) 03-23-08 Oral, ity of tablet 300 08:30: 07:48 ONCE, 1 [place] as mg 00 :00 dose, Thu Medical 03/23/20 at Branch 0330, Routine clopidogreL 2020-0 2020- No 300mg 300 mg, U nivers (PLAVIX) 03-23-08 Oral, ity of tablet 300 08:30: 07:48 ONCE, 1 [place] mg 00 :00 dose, Fri Medical 03/23/20 at Branch 0330, Routine morpHINE 2020-0 Yes 2mg 2 mg, Slow Uni vers injection 2 -08 IV Push, ity of mg 07:59: [place] [address] Starting Medical [facility] 03/23/20 Branch at 0259, Until Discontinu ed, Routine, Chest pain morpHINE 2020-0 Yes 2mg 2 mg, Slow Uni vers injection 2 -08 IV Push, ity of mg 07:59: Q4HPRN, [place] 14 Starting Medical 03/23/20 [place] at 0259, Until Discontinu ed, Routine, Chest pain magnesium 2020-0 2020- No 2g 2 g, IV Univ ers sulfate in 03-23 Piggyback, it y of water 2 07:45: 07:49 ONCE, 1 [place] gram/50 mL 00 :00 dose, Fri Medi birdie (4 %) 03/23/20 at [place] infusion 2 0245, g Routine KCL 2020-0 2020- No 40meq 40 mEq, Univers (KLOR-CON 03-23- Oral, ity of M20) tablet 07:45: 07:27 ONCE, 1 [place] 40 mEq 00 :00 dose, Fri Medical 03/23/20 at [place] 0245, Routine magnesium 2020-0 2020- No 2g 2 g, IV Univ ers sulfate in 03-23 Piggyback, it y of water 2 07:45: 07:49 ONCE, 1 [place] gram/50 mL 00 :00 dose, Fri Medi birdie (4 %) 03/23/20 at [place] infusion 2 0245, g Routine KCL 2020-0 2020- No 40meq 40 mEq, Univers (KLOR-CON 03-23-08 Oral, ity of M20) tablet 07:45: 07:27 ONCE, 1 [place] 40 mEq 00 :00 dose, Fri Medical 03/23/20 at [place] 0245, Routine heparin 2020-0 Yes 12U/kg/ 12 Univers 25,000 5-08 h Units/kg/h ity of unit/250 mL 05:15: r ?78 kg [place] (Premixed 00 (9.36 Medical Bag) in D5W mL/hr), IV Br anch weight Infusion, based CONTINUOUS dosing ACS , Starting protocol Thu03/23/20 at 0015, Until Discontinu ed heparin 2020-0 Yes 12U/kg/ 12 Univers 25,000 5-08 h Units/kg/h ity of unit/250 mL 05:15: r ?78 kg [place] (Premixed 00 (9.36 Medical Bag) in D5W mL/hr), IV Br anch weight Infusion, based CONTINUOUS dosing ACS , Starting protocol Thu03/23/20 at 0015, Until Discontinu ed heparin 2020-0 2020- No 4000U 4,000 Univers 1000 5-08 05-08 Units, IV ity of unit/mL 04:15: 04:42 Push, [place] injection 00 :00 ONCE, 1 Medical Soln 4,000 dose, Madhavi Bran ch Units 03/22/20 at 2315, Routine heparin 2020-0 2020- No 4000U 4,000 Univers 1000 5-08 05-08 Units, IV ity of unit/mL 04:15: 04:42 Push, [place] injection 00 :00 ONCE, 1 Medical Soln 4,000 dose, Madhavi Bran ch Units 03/22/20 at 2315, Routine heparin 2020-0 Yes 3000U FOR Univers (1,000 5-08 REBOLUSING ity of unit/mL, 10 04:04: , Starting [place] mL vial) 18 Madhavi 03/22/20 Medic al for at 2304, Branch Rebolusing Until Discontinu ed, Routine
Dosing based on aPTT testing parameters (refer to continuous heparin drip order).
heparin 2020-0 Yes 3000U FOR [facility] (1,000 5-08 REBOLUSING ity of unit/mL, 10 04:04: , Starting [place] mL vial) 18 Madhavi 03/22/20 Medic al for at 2304, Branch Rebolusing Until Discontinu ed, Routine
Dosing based on aPTT testing parameters (refer to continuous heparin drip order).
memantine-d 2019- 2020- No 1{capsu Take 1 [facility] onepezil 03-23 le} capsule by ity of (NAMZARIC) 04:01: 00:00 mouth [place] 28-10 mg 03 :00 daily. Medical CSpX Branch folic 2019-0 2020- No Take by Univers acid/vit B 03-23 mouth. ity of complex and 04:01: 00:00 [place] C (B 03 :00 Medical COMPLEX-VIT Branch RAZA C-FOLIC ACID ORAL) Cholecalcif 2019-0 2020- No Take by U nivers ann, 03-23 mouth. ity of Vitamin D3, 04:01: 00:00 [place] 2,000 unit 03 :00 Medical capsule Branch thiamine 2019-0 2020- No 100mg Take 100 Uni vers (VITAMIN 03-23 mg by ity of B-1) 100 mg 04:01: 00:00 [place] tablet 03 :00 daily. Medical Branch NaCl 0.9% 2019-0 2020- No 10mL Inject 10 Un mel (NS) Soln 03-23 05-07 mL ity of 10 mL with 04:01: 00:00 intravenou [place] sodium 03 :00 sly once Medical chloride now. Branch 2.5 mEq/mL SolP 17.125 mEq memantine-d 2019- 2020- No 1{capsu Take 1 [facility] onepezil 03-23- le} capsule by ity of (NAMZARIC) 04:01: 00:00 mouth [place] 28-10 mg 03 :00 daily. Medical CSpX Branch folic 2019-0 2020- No Take by [facility] acid/vit B 03-23- mouth. ity of complex and 04:01: 00:00 [place] C (B 03 :00 Medical COMPLEX-VIT Branch RAZA C-FOLIC ACID ORAL) Cholecalcif 2019- 2020- No Take by U nivers ann, 03-23- mouth. ity of Vitamin D3, 04:01: 00:00 [place] 2,000 unit 03 :00 Medical capsule Branch thiamine 2019-0 2020- No 100mg Take 100 Uni vers (VITAMIN 03-23- mg by ity of B-1) 100 mg 04:01: 00:00 mouth [place] tablet 03 :00 daily. Medical Branch NaCl 0.9% 0 2020- No 10mL Inject 10 Un mel (NS) Soln 03-23-07 mL ity of 10 mL with 04:01: 00:00 intravenou [place] sodium 03 :00 sly once Medical chloride now. Branch 2.5 mEq/mL SolP 17.125 mEq acetaminoph 2020-0 Yes 650mg 650 mg, Un mel en 5-08 Oral, ity of (TYLENOL) 02:51: Q6HPRN, [place] tablet 650 29 Starting Medic al mg Madhavi 03/22/20 Branch at 215, Until Discontinu ed, Routine, Pain (scale 1-3) acetaminoph 2020-0 Yes 650mg 650 mg, Un mel en 5-08 Oral, ity of (TYLENOL) 02:51: Q6HPRN, [place] tablet 650 29 Starting Medic al mg Madhavi 03/22/20 Branch at 2151, Until Discontinu ed, Routine, Pain (scale 1-3) nitroglycer 2020-0 Yes .4mg 0.4 mg, Uni vers in -08 Sublingual ity of (NITROSTAT) 02:38: , Q5MIN [place] as sublingual 00 PRN, 3 Medical tablet 0.4 doses, Branch mg Starting [facility] 03/22/20 at 2138, Until Discontinu ed, ADAMA, Chest pain nitroglycer 2020-0 Yes .4mg 0.4 mg, Uni vers in -08 Sublingual ity of (NITROSTAT) 02:38: , Q5MIN [place] sublingual 00 PRN, 3 Medical tablet 0.4 doses, Branch mg Starting [facility] 03/22/20 at 2138, Until Discontinu ed, ADAMA, Chest pain aspirin 2020-0 2020- No 324mg 324 mg, Unive rs chewable - 05-08 Oral, ity of tablet 324 02:37: 02:51 ONCE, 1 [place] mg 00 :00 dose, [facility] 03/22/20 at [place] 2145, ADAMA aspirin 2020-0 2020- No 324mg 324 mg, Unive rs chewable 03-23 05-08 Oral, ity of tablet 324 02:37: 02:51 ONCE, 1 [place] mg 00 :00 dose, [facility] 03/22/20 at [place] 2145, ADAMA isosorbide 2020-0 Yes [id number] 90mg Take 1.5 [facility] mononitrate 5-08 tablets by it y of 60 mg 24 hr 00:00: mouth [place] tablet 00 daily. [facility] isosorbide 2020-0 Yes [id number] 90mg Take 1.5 [facility] mononitrate 5-08 tablets by it y of 60 mg 24 hr 00:00: mouth [place] tablet 00 daily. [facility] isosorbide 2020-0 Yes [id number] 90mg Take 1.5 [facility] mononitrate 5-08 tablets by it y of 60 mg 24 hr 00:00: mouth [place] tablet 00 daily. [facility] isosorbide 2020-0 Yes [id number] 90mg Take 1.5 [facility] mononitrate 5-08 tablets by it y of 60 mg 24 hr 00:00: mouth [place] tablet 00 daily. [facility] isosorbide 2020-0 Yes [id number] 90mg Take 1.5 [facility] mononitrate 5-08 tablets by it y of 60 mg 24 hr 00:00: mouth [place] tablet 00 daily. Medical Branch isosorbide 2020-0 Yes [id number] 90mg Take 1.5 [facility] mononitrate 5-08 tablets by it y of 60 mg 24 hr 00:00: mouth [place] tablet 00 daily. Medical Branch isosorbide 2020-0 Yes [id number] 90mg Take 1.5 [facility] mononitrate 5-08 tablets by it y of 60 mg 24 hr 00:00: mouth [place] tablet 00 daily. Medical Branch isosorbide 2020-0 Yes [id number] 90mg Take 1.5 [facility] mononitrate 5-08 tablets by it y of 60 mg 24 hr 00:00: mouth [place] tablet 00 daily. Medical Branch isosorbide 2020-0 Yes [id number] 90mg Take 1.5 [facility] mononitrate 5-08 tablets by it y of 60 mg 24 hr 00:00: mouth [place] tablet 00 daily. Medical Branch acetaminoph 2020- No [id number] 975mg Take 3 [facility] en 325 mg 5-08 05-19 tablets by ity of tablet 00:00: 04:59 mouth [place] 00 :00 every 8 Medical (eight) Branch hours for 10 days. acetaminoph 2019-0 2020- No [id number] 975mg Take 3 [facility] en 325 mg 5-08 05-19 tablets by ity of tablet 00:00: 04:59 mouth [place] 00 :00 every 8 Medical (eight) Branch hours for 10 days. acetaminoph 2020-0 2020- No [id number] 975mg Take 3 [facility] en 325 mg 5-08 05-19 tablets by ity of tablet 00:00: 04:59 mouth [place] 00 :00 every 8 Medical (eight) Branch hours for 10 days. acetaminoph 2020-0 2020- No [id number] 975mg Take 3 [facility] en 325 mg 5-08 05-19 tablets by ity of tablet 00:00: 04:59 mouth [place] 00 :00 every 8 Medical (eight) Branch hours for 10 days. acetaminoph 2020-0 2020- No [id number] 975mg Take 3 [facility] en 325 mg 5-08 05-19 tablets by ity of tablet 00:00: 04:59 mouth [place] 00 :00 every 8 Medical (eight) Branch hours for 10 days. lidocaine 5 2019- 2020- No [id number] 1{patch Apply 1 [facility] % (700 - 05-09 } Patch to ity of mg/patch) 00:00: 04:59 area(s) [place] patch 00 :00 once now Medical for 1 Branch dose. lidocaine 5 2019-0 2020- No [id number] 1{patch Apply 1 [facility] % (700 5-08 05-09 } Patch to ity of mg/patch) 00:00: 04:59 area(s) [place] patch 00 :00 once now Medical for 1 Branch dose. lidocaine 5 2019-0 2020- No [id number] 1{patch Apply 1 [facility] % (700 5-08 05-08 } Patch to ity of mg/patch) 00:00: 00:00 area(s) [place] patch 00 :00 once now Medical for 1 Branch dose. lidocaine 5 2019-0 2020- No [id number] 1{patch Apply 1 [facility] % (700 5-08 05-08 } Patch to ity of mg/patch) 00:00: 00:00 area(s) [place] patch 00 :00 once now Medical for 1 Branch dose. glipiZIDE 2020-0 Yes 5mg 5 mg, Univers (GLUCOTROL) 4-23 Oral, ity of tablet 5 mg 14:00: DAILY, [place] 00 First dose Medical on [facility] 03/08/20 at 0900, [facility] spironolact 2020-0 2020- No [id number] 12.5mg Take 0.5 [facility] one 25 mg 4-23 05-24 tablets by ity of tablet 00:00: 04:59 mouth [place] 00 :00 daily for Medical 30 days. Branch spironolact 2020-0 2020- No [id number] 12.5mg Take 0.5 [facility] one 25 mg 4-23 05-24 tablets by ity of tablet 00:00: 04:59 mouth [place] 00 :00 daily for Medical 30 days. Branch spironolact 2020-0 2020- No [id number] 12.5mg Take 0.5 [facility] one 25 mg 4-23 05-24 tablets by ity of tablet 00:00: 04:59 mouth [place] 00 :00 daily for Medical 30 days. Branch spironolact 2020-0 2020- No [id number] 12.5mg Take 0.5 [facility] one 25 mg 4-23 05-07 tablets by ity of tablet 00:00: 00:00 mouth [place] 00 :00 daily for Medical 30 days. Branch spironolact 2020-0 2020- No [id number] 12.5mg Take 0.5 [facility] one 25 mg 4-23 05-07 tablets by ity of tablet 00:00: 00:00 mouth [place] 00 :00 daily for Medical 30 days. Branch memantine-d 2020-0 Yes 1{capsu Take 1 U nivers onepezil 4-22 le} capsule by ity o f (NAMZARIC) 23:46: mouth [place] 28-10 mg 10 daily. Medical CSpX Branch folic 2020-0 Yes Take by [facility] acid/vit B 4-22 mouth. ity of complex and 23:46: [place] C (B 10 Medical COMPLEX-VIT Branch RAZA C-FOLIC ACID ORAL) Cholecalcif 2020-0 Yes Take by Un mel ann, -22 mouth. ity of Vitamin D3, 23:46: [place] 2,000 unit 10 Medical capsule Branch MULTIVITAMI 2019-0 Yes Take by Un mel N ORAL 4-22 mouth. ity of 23:46: [place] 10 Medical Branch thiamine 2020-0 Yes 100mg Take 100 Univ ers (VITAMIN 4-22 mg by ity of B-1) 100 mg 23:46: mouth [place] tablet 10 daily. Medical Branch NaCl 0.9% 2020-0 Yes 10mL Inject 10 Uni vers (NS) Soln 4-22 mL ity of 10 mL with 23:46: intravenou [place] sodium 10 sly once Medical chloride now. Branch 2.5 mEq/mL SolP 17.125 mEq memantine-d 2020-0 Yes 1{capsu Take 1 U nivers onepezil 4-22 le} capsule by ity o f (NAMZARIC) 23:46: mouth [place] 28-10 mg 10 daily. Medical CSpX Branch folic 2020-0 Yes Take by [facility] acid/vit B 4-22 mouth. ity of complex and 23:46: [place] C (B 10 Medical COMPLEX-VIT Branch RAZA C-FOLIC ACID ORAL) Cholecalcif 2020-0 Yes Take by Un mel ann, 4-22 mouth. ity of Vitamin D3, 23:46: [place] 2,000 unit 10 Medical capsule Branch MULTIVITAMI 2020-0 Yes Take by Un mel N ORAL 4-22 mouth. ity of 23:46: [place] 10 Medical Branch thiamine 2020-0 Yes 100mg Take 100 Univ ers (VITAMIN 4-22 mg by ity of B-1) 100 mg 23:46: mouth [place] tablet 10 daily. Medical Branch NaCl 0.9% 2020-0 Yes 10mL Inject 10 Uni vers (NS) Soln 4-22 mL ity of 10 mL with 23:46: intravenou [place] sodium 10 sly once Medical chloride now. Branch 2.5 mEq/mL SolP 17.125 mEq memantine-d 2020-0 Yes 1{capsu Take 1 U nivers onepezil 03-07 le} capsule by ity o f (NAMZARIC) 23:46: mouth [place] 28-10 mg 10 daily. Medical CSpX Branch folic 2020-0 Yes Take by [facility] acid/vit B - mouth. ity of complex and 23:46: [place] C (B 10 Medical COMPLEX-VIT Branch RAZA C-FOLIC ACID ORAL) Cholecalcif 2019-0 Yes Take by Un mel ann, - mouth. ity of Vitamin D3, 23:46: [place] 2,000 unit 10 Medical capsule Branch MULTIVITAMI 2019-0 Yes Take by Un mel N ORAL - mouth. ity of 23:46: [place] 10 Medical Branch thiamine 2019-0 Yes 100mg Take 100 Univ ers (VITAMIN 4-22 mg by ity of B-1) 100 mg 23:46: mouth [place] tablet 10 daily. Medical Branch NaCl 0.9% 2020-0 Yes 10mL Inject 10 Uni vers (NS) Soln 4-22 mL ity of 10 mL with 23:46: intravenou [place] sodium 10 sly once Medical chloride now. Branch 2.5 mEq/mL SolP 17.125 mEq metoprolol 2020-0 2020- No 12.5mg Take 12.5 [facility] tartrate 03-07-22 mg by ity of 12.5 mg 20:15: 00:00 mouth 2 [place] 29 :00 (two) Medical times Branch daily. aspirin 81 2020-0 2020- No 81mg Take 81 mg Univers mg chewable 03-07-22 by mouth ity of tablet 20:15: 00:00 daily. [place] 29 :00 Medical Branch atorvastati 2019-0 2020- No 40mg Take 40 mg Univers n 40 mg 03-07- by mouth ity of tablet 20:15: 00:00 at [place] 29 :00 bedtime. Medical Branch temazepam 2020-0 Yes 15mg 15 mg, Univer s (RESTORIL) 4-22 Oral, ity of capsule 15 01:55: QHSPRN, [place] mg 38 Starting Medical [facility] Branch 03/06/20 at 2055, Until Discontinu ed, Routine, Insomnia Insulin 2020-0 Yes [id number] 10U inject 10 [facility] Glargine 4-22 Units ity of 100 unit/mL 00:00: under the [place] (3 mL) 00 skin at Medical injection bedtime. Branch temazepam 2020-0 Yes [id number] 15mg Take 1 Un mel 15 mg 4-22 capsule by ity of capsule 00:00: mouth at [place] 00 bedtime as Medical needed for Branch Insomnia. furosemide 2020-0 Yes [id number] 40mg Take 1 [facility] 40 mg 4-22 tablet by ity of tablet 00:00: mouth [place] 00 every Medical morning Branch and evening. Magnesium 2020-0 Yes [id number] 400mg Take 400 [facility] Oxide 420 4-22 mg by ity of mg Tab 00:00: mouth [place] 00 daily. Medical Branch potassium 2020-0 Yes [id number] 20meq Take 20 [facility] chloride 20 4-22 mEq by ity of mEq packet 00:00: mouth [place] 00 daily. Medical Take with Branch lasix in the morning isosorbide 2020-0 Yes [id number] 15mg Take 0.5 [facility] mononitrate 4-22 tablets by it y of 30 mg 24 hr 00:00: mouth [place] tablet 00 daily. Medical Hold if Branch systolic blood pressure less than 120 Insulin 2020-0 Yes [id number] 10U inject 10 [facility] Glargine 4-22 Units ity of 100 unit/mL 00:00: under the [place] (3 mL) 00 skin at Medical injection bedtime. Branch temazepam 2020-0 Yes [id number] 15mg Take 1 Un mel 15 mg 4-22 capsule by ity of capsule 00:00: mouth at [place] 00 bedtime as Medical needed for Branch Insomnia. furosemide 2020-0 Yes [id number] 40mg Take 1 [facility] 40 mg 4-22 tablet by ity of tablet 00:00: mouth [place] 00 every Medical morning Branch and evening. Magnesium 2020-0 Yes [id number] 400mg Take 400 [facility] Oxide 420 4-22 mg by ity of mg Tab 00:00: mouth [place] 00 daily. Medical Branch potassium 2020-0 Yes [id number] 20meq Take 20 [facility] chloride 20 4-22 mEq by ity of mEq packet 00:00: mouth [place] 00 daily. Medical Take with Branch lasix in the morning isosorbide 2020-0 Yes [id number] 15mg Take 0.5 [facility] mononitrate 4-22 tablets by it y of 30 mg 24 hr 00:00: mouth [place] tablet 00 daily. Medical Hold if Branch systolic blood pressure less than 120 Insulin 2020-0 Yes [id number] 10U inject 10 [facility] Glargine 4-22 Units ity of 100 unit/mL 00:00: under the [place] (3 mL) 00 skin at Medical injection bedtime. Branch temazepam 2020-0 Yes [id number] 15mg Take 1 Un mel 15 mg 4-22 capsule by ity of capsule 00:00: mouth at [place] 00 bedtime as Medical needed for Branch Insomnia. furosemide 2020-0 Yes [id number] 40mg Take 1 [facility] 40 mg 4-22 tablet by ity of tablet 00:00: mouth [place] 00 every Medical morning Branch and evening. Magnesium 2020-0 Yes [id number] 400mg Take 400 [facility] Oxide 420 4-22 mg by ity of mg Tab 00:00: mouth [place] 00 daily. Medical Branch potassium 2020-0 Yes [id number] 20meq Take 20 [facility] chloride 20 4-22 mEq by ity of mEq packet 00:00: mouth [place] 00 daily. Medical Take with Branch lasix in the morning isosorbide 2020-0 Yes [id number] 15mg Take 0.5 [facility] mononitrate 4-22 tablets by it y of 30 mg 24 hr 00:00: mouth [place] tablet 00 daily. Medical Hold if Branch systolic blood pressure less than 120 Insulin 2020-0 Yes [id number] 10U inject 10 [facility] Glargine 4-22 Units ity of 100 unit/mL 00:00: under the [place] (3 mL) 00 skin at Medical injection bedtime. Branch Magnesium 2020-0 Yes [id number] 400mg Take 400 [facility] Oxide 420 4-22 mg by ity of mg Tab 00:00: mouth [place] 00 daily. Medical Branch vitamin 2020-0 2020- No [id number] 1000ug Take 1 Univers B-12 1,000 4-22 07-22 tablet by ity of mcg tablet 00:00: 04:59 mouth [place] 00 :00 daily for Medical 90 days. Branch vitamin 2019- 2020- No [id number] 1000ug Take 1 Univers B-12 1,000 4-22 07-22 tablet by ity of mcg tablet 00:00: 04:59 mouth [place] 00 :00 daily for Medical 90 days. Branch vitamin 2019- 2020- No [id number] 1000ug Take 1 Univers B-12 1,000 4-22 07-22 tablet by ity of mcg tablet 00:00: 04:59 mouth [place] 00 :00 daily for Medical 90 days. Branch vitamin 2019- 2020- No [id number] 1000ug Take 1 Univers B-12 1,000 4-22 07-22 tablet by ity of mcg tablet 00:00: 04:59 mouth [place] 00 :00 daily for Medical 90 days. Branch glipiZIDE 5 2020- No [id number] 2.5mg Take 0.5 [facility] mg tablet - 05-23 tablets by ity of 00:00: 04:59 mouth 2 [place] 00 :00 (two) Medical times Branch daily before breakfast and dinner for 30 days. metoprolol 2019- 2020- No [id number] 25mg Take 1 [facility] succinate 4-22 05-23 tablet by ity of XL 25 mg 24 00:00: 04:59 mouth 2 [place] hr tablet 00 :00 (two) Medical times Branch daily for 30 days. OLANZapine 2019- 2020- No [id number] 2.5mg Take 1 [facility] 2.5 mg - 05-23 tablet by ity of tablet 00:00: 04:59 mouth at [place] 00 :00 bedtime Medical for 30 Branch days. ranolazine 2019- 2020- No [id number] 1000mg Take 2 Univers 500 mg 12 4-22 05-23 tablets by ity of hr tablet 00:00: 04:59 mouth [place] 00 :00 every 12 Medical (twelve) Branch hours for 30 days. aspirin 81 2019-0 2020- No [id number] 81mg Take 1 [facility] mg chewable 4-22 05-23 tablet by it y of tablet 00:00: 04:59 mouth [place] 00 :00 daily with Medical breakfast Branch for 30 days. atorvastati 2019-0 2020- No [id number] 40mg Take 1 Univers n 40 mg 4-22 05-23 tablet by ity of tablet 00:00: 04:59 mouth at [place] 00 :00 bedtime Medical for 30 Branch days. glipiZIDE 5 2020- No [id number] 2.5mg Take 0.5 [facility] mg tablet - 05-23 tablets by ity of 00:00: 04:59 mouth 2 [place] 00 :00 (two) Medical times Branch daily before breakfast and dinner for 30 days. metoprolol 2019- 2020- No [id number] 25mg Take 1 [facility] succinate 4-22 05-23 tablet by ity of XL 25 mg 24 00:00: 04:59 mouth 2 [place] hr tablet 00 :00 (two) Medical times Branch daily for 30 days. OLANZapine 2019- 2020- No [id number] 2.5mg Take 1 [facility] 2.5 mg 4- 05-23 tablet by ity of tablet 00:00: 04:59 mouth at [place] 00 :00 bedtime Medical for 30 Branch days. ranolazine 2019- 2020- No [id number] 1000mg Take 2 [facility] 500 mg 12 - 05-23 tablets by ity of hr tablet 00:00: 04:59 mouth [place] 00 :00 every 12 Medical (twelve) Branch hours for 30 days. aspirin 81 2019- 2020- No [id number] 81mg Take 1 [facility] mg chewable - 05-23 tablet by it y of tablet 00:00: 04:59 mouth [place] 00 :00 daily with Medical breakfast Branch for 30 days. atorvastati 2019- 2020- No [id number] 40mg Take 1 [facility] n 40 mg - 05-23 tablet by ity of tablet 00:00: 04:59 mouth at [place] 00 :00 bedtime Medical for 30 Branch days. glipiZIDE 5 2020- No [id number] 2.5mg Take 0.5 [facility] mg tablet - 05-23 tablets by ity of 00:00: 04:59 mouth 2 [place] 00 :00 (two) Medical times Branch daily before breakfast and dinner for 30 days. metoprolol 2019- 2020- No [id number] 25mg Take 1 [facility] succinate 4-22 05-23 tablet by ity of XL 25 mg 24 00:00: 04:59 mouth 2 [place] hr tablet 00 :00 (two) Medical times Branch daily for 30 days. OLANZapine 2019- 2020- No [id number] 2.5mg Take 1 [facility] 2.5 mg 4-22 05-23 tablet by ity of tablet 00:00: 04:59 mouth at [place] 00 :00 bedtime Medical for 30 Branch days. ranolazine 2019- 2020- No [id number] 1000mg Take 2 [facility] 500 mg 12 4-22 05-23 tablets by ity of hr tablet 00:00: 04:59 mouth [place] 00 :00 every 12 Medical (twelve) Branch hours for 30 days. aspirin 81 2019- 2020- No [id number] 81mg Take 1 [facility] mg chewable 4-22 05-23 tablet by it y of tablet 00:00: 04:59 mouth [place] 00 :00 daily with Medical breakfast Branch for 30 days. atorvastati 2019- 2020- No [id number] 40mg Take 1 [facility] n 40 mg 4-22 05-23 tablet by ity of tablet 00:00: 04:59 mouth at [place] 00 :00 bedtime Medical for 30 Branch days. glipiZIDE 5 2019- 2020- No [id number] 2.5mg Take 0.5 [facility] mg tablet -06 04-23 tablets by ity of 00:00: 04:59 mouth 2 [place] 00 :00 (two) Medical times Branch daily before breakfast and dinner for 30 days. metoprolol 2019- 2020- No [id number] 25mg Take 1 [facility] succinate 4-22 05-23 tablet by ity of XL 25 mg 24 00:00: 04:59 mouth 2 [place] hr tablet 00 :00 (two) Medical times Branch daily for 30 days. ranolazine 2019- 2020- No [id number] 1000mg Take 2 [facility] 500 mg 12 4-22 05-23 tablets by ity of hr tablet 00:00: 04:59 mouth [place] 00 :00 every 12 Medical (twelve) Branch hours for 30 days. atorvastati 2019-0 2020- No [id number] 40mg Take 1 [facility] n 40 mg 4-22 05-23 tablet by ity of tablet 00:00: 04:59 mouth at [place] 00 :00 bedtime Medical for 30 Branch days. furosemide 2019- 2020- No [id number] 40mg Take 1 [facility] 40 mg 4-22 05-08 tablet by ity of tablet 00:00: 00:00 mouth [place] 00 :00 every Medical morning Branch and evening. aspirin 81 2019- No [id number] 81mg Take 1 [facility] mg chewable - 05-08 tablet by it y of tablet 00:00: 00:00 mouth [place] 00 :00 daily with Medical breakfast Branch for 30 days. isosorbide 2019- No [id number] 15mg Take 0.5 [facility] mononitrate - 05-08 tablets by i ty of 30 mg 24 hr 00:00: 00:00 mouth [place] tablet 00 :00 daily. Medical Hold if Branch systolic blood pressure less than 120 Insulin 2019-2019- No [id number] 10U inject 10 [facility] Glargine 03-07 05-08 Units ity of 100 unit/mL 00:00: 00:00 under the [place] (3 mL) 00 :00 skin at Medical injection bedtime. Branch glipiZIDE 5 2019- No [id number] 2.5mg Take 0.5 [facility] mg tablet 03-07-08 tablets by ity of 00:00: 00:00 mouth 2 [place] 00 :00 (two) Medical times Branch daily before breakfast and dinner for 30 days. metoprolol 2019- No [id number] 25mg Take 1 [facility] succinate - 05-08 tablet by ity of XL 25 mg 24 00:00: 00:00 mouth 2 [place] hr tablet 00 :00 (two) Medical times Branch daily for 30 days. ranolazine 2019- No [id number] 1000mg Take 2 [facility] 500 mg 12 - 05-08 tablets by ity of hr tablet 00:00: 00:00 mouth [place] 00 :00 every 12 Medical (twelve) Branch hours for 30 days. furosemide 2019-2019- No [id number] 40mg Take 1 [facility] 40 mg - 05-08 tablet by ity of tablet 00:00: 00:00 mouth [place] 00 :00 every Medical morning Branch and evening. aspirin 81 2020- No [id number] 81mg Take 1 [facility] mg chewable 4-22 05-08 tablet by it y of tablet 00:00: 00:00 mouth [place] 00 :00 daily with Medical breakfast Branch for 30 days. atorvastati 2019-2019- No [id number] 40mg Take 1 [facility] n 40 mg 4-22 05-08 tablet by ity of tablet 00:00: 00:00 mouth at [place] 00 :00 bedtime Medical for 30 Branch days. Magnesium 2019-2019- No [id number] 400mg Take 400 Univers Oxide 420 4-22 05-08 mg by ity of mg Tab 00:00: 00:00 mouth [place] 00 :00 daily. Medical Branch vitamin 2019- No [id number] 1000ug Take 1 [facility] B-12 1,000 4-22 05-08 tablet by ity of mcg tablet 00:00: 00:00 mouth [place] 00 :00 daily for Medical 90 days. Branch isosorbide 2019- No [id number] 15mg Take 0.5 [facility] mononitrate 4-22 05-08 tablets by i ty of 30 mg 24 hr 00:00: 00:00 mouth [place] tablet 00 :00 daily. Medical Hold if Branch systolic blood pressure less than 120 OLANZapine No [id number] 2.5mg Take 1 [facility] 2.5 mg 4-22 05-07 tablet by ity of tablet 00:00: 00:00 mouth at [place] 00 :00 bedtime Medical for 30 Branch days. temazepam No [id number] 15mg Take 1 U nivers 15 mg 4-22 05-07 capsule by ity of capsule 00:00: 00:00 mouth at [place] 00 :00 bedtime as Medical needed for Branch Insomnia. potassium 2019- No [id number] 20meq Take 20 Univers chloride 20 4-22 05-07 mEq by ity o f mEq packet 00:00: 00:00 mouth [place] 00 :00 daily. Medical Take with Branch lasix in the morning OLANZapine 2019- No [id number] 2.5mg Take 1 [facility] 2.5 mg 4-22 05-07 tablet by ity of tablet 00:00: 00:00 mouth at [place] 00 :00 bedtime Medical for 30 Branch days. temazepam 2019- No [id number] 15mg Take 1 U nivers 15 mg 4-22 05-07 capsule by ity of capsule 00:00: 00:00 mouth at [place] 00 :00 bedtime as Medical needed for Branch Insomnia. potassium 2019- No [id number] 20meq Take 20 Univers chloride 20 4-22 05-07 mEq by ity o f mEq packet 00:00: 00:00 mouth [place] 00 :00 daily. Medical Take with Branch lasix in the morning isosorbide 2020-0 2020- No 60mg 60 mg, Univ ers mononitrate -06 03- Oral, ity of (IMDUR) 24 14:00: 13:43 DAILY, [place] hr tablet 00 :56 First dose Medi birdie 60 mg on [facility] 03/06/20 at 0900, Until Discontinu ed, Routine OLANZapine 2020-0 Yes 2.5mg 2.5 mg, Uni vers (ZyPREXA) - Oral, QHS, ity of tablet 2.5 02:00: First dose [place] mg 00 on [facility] 03/05/20 at Branch 2100, Until Discontinu ed, Routine insulin 2020-0 Yes 10U 10 [address], [facility], [facility] rs glargine 03-06 Subcutaneo ity o f (LANTUS 02:00: us, QHS, [place] U-100) 00 First dose Medical injection on [facility] 10 Units 03/05/20 at 2100, Until Discontinu ed, Routine donepezil 2020-0 Yes 5mg 5 mg, Univers (ARICEPT) 03-06 Oral, QHS, ity of tablet 5 mg 02:00: First dose [place] 00 on [facility] 03/05/20 at Branch 2100, Until Discontinu ed, Routine atorvastati 2020-0 Yes 40mg 40 mg, Univ ers n (LIPITOR) - Oral, QHS, it y of tablet 40 02:00: First dose [place] mg 00 on [facility] 03/05/20 at Branch 2100, Until Discontinu ed, Routine isosorbide 2020-0 2020- No 30mg 30 mg, Univ ers mononitrate 03-05 Oral, ity of (IMDUR) 24 15:30: 15:21 ONCE, 1 [place] as hr tablet 00 :00 dose, [facility] Medic al 30 mg 03/05/20 at Branch 1030, Routine spironolact 2020-0 Yes 12.5mg 12.5 mg, Univers one 03-05 Oral, ity of (ALDACTONE) 14:00: DAILY, [place] tablet 12.5 00 First dose Me dical mg on [facility] 03/05/20 at 0900, Until Discontinu ed, Routine memantine 2020-0 Yes 10mg 10 mg, Univer s (NAMENDA) 4-20 Oral, ity of tablet 10 14:00: DAILY, [place] mg 00 First dose Medical on [facility] Branch 03/05/20 at 0900, Until Discontinu ed, Routine
managing member approving Restricted medication : MEGAIN lisinopril 2020-0 2020- No 5mg 5 mg, Unive rs (PRINIVIL,Z 03-05-21 Oral, ity of ESTRIL) 14:00: 13:44 DAILY, [place] tablet 5 mg 00 :01 First dose Me dical on [facility] Branch 03/05/20 at 0900, Until Discontinu ed, Routine isosorbide 2020-0 2020- No 30mg 30 mg, Univ ers mononitrate -05 03-20 Oral, ity of (IMDUR) 24 14:00: 14:20 DAILY, [place] tablet 00 :04 First dose Medi birdie 30 mg on [facility] 03/05/20 at 0900, Until Discontinu ed, Routine ranolazine 2020-0 Yes 500mg 500 mg, Uni vers (RANEXA) 12 4-20 Oral, ity of hr tablet 13:00: Q12H, [place] 500 mg 00 First dose Medical on [facility] Branch 03/05/20 at 0800, Until Discontinu ed, Routine metoprolol 2020-0 Yes 25mg 25 mg, Unive rs succinate 4-20 Oral, BID, ity of XL (TOPROL 13:00: [place] dose [place] XL[place] tablet 00 on Thu Medical 25 mg 03/05/20 at Branch 0800, Until Discontinu ed, Routine magnesium 2020-0 Yes 400mg 400 mg, Univ ers oxide 4-20 Oral, BID, ity of (MAG-OX 13:00: [place] 400[place] tablet 00 on Mon Medica l 400 mg 03/05/20 at Branch 0800, Until Discontinu ed, Routine aspirin 2020-0 Yes 81mg 81 mg, Univers chewable 4-20 Oral, QAM ity of tablet 81 13:00: WITH [place] mg 00 BREAKFAST, Medical First dose Branch on [facility] 03/05/20 at 0800, Until Discontinu ed, Routine Sliding 2020-0 Yes Subcutaneo Univ ers Scale 4-20 us, AC+HS, ity of Insulin-Reg 12:30: First dose [place] ular + Fsbg 00 on Mon Medica l Testing 03/05/20 at Branch 0730, Until Discontinu ed, Routine glipiZIDE 2020-0 2020- No 5mg 5 mg, Univer s (GLUCOTROL) 4-20 04-22 Oral, ity of tablet 5 mg 12:30: 19:41 BIDAC, [place] 00 :44 First dose Medical on [facility] Branch 03/05/20 at 0730, Until Discontinu ed, Routine glucagon 2020-0 Yes 1mg 1 mg, Univers (GLUCAGEN 4-20 Intramuscu ity of DIAGNOSTIC 03:02: [place], PRN, [place] KIT) 42 Starting Medical injection 1 [facility] mg 03/04/20 at 2202, Until Discontinu ed, ADAMA, Blood Glucose < or = 70 mg/dL and patient is unable to swallow or has mental changes. dextrose 50 2020-0 Yes 25mL 25 mL, Univ ers % in water 4-20 Slow IV ity of (D50W) 03:02: Push, PRN, [place] injection 42 Starting Medica l 25 mL [facility] 03/04/20 at 2202, Until Discontinu ed, ADAMA, Blood Glucose < or = 70 mg/dL and patient is unable to swallow or has mental status changes. furosemide 2020-0 Yes 40mg 40 mg, Unive rs (LASIX) 4-20 Oral, ity of tablet 40 03:00: QAM+PM, [place] mg 00 First dose Medical on [facility] 03/04/20 at 2200, Until Discontinu ed, Routine cyanocobala 2020-0 Yes 1000ug 1,000 mcg, Univers min 4-20 Subcutaneo ity of (VITAMIN 03:00: [place], Q24H, [place] B12) 00 First dose Medical injection on [facility] 1,000 mcg 03/04/20 at 2200, Until Discontinu ed, Routine heparin 2020-0 Yes 5000U 5,000 Univers (porcine) 4-20 Units, ity of injection 03:00: Subcutaneo [place] 5,000 Units 00 us, Q8H, Medi birdie First dose Branch on [place] 03/04/20 at 2200, Until Discontinu ed, Routine ondansetron 2020-0 Yes 4mg 4 mg, Slow Univers (ZOFRAN 4-20 IV Push, ity of (PF)) 02:34: Q6HPRN, [place] injection 4 40 Starting Medi birdie mg [facility] 03/04/20 at 2133, Until Discontinu ed, Routine, Nausea and Vomiting (N/V) traMADol 2019- No 50mg 50 mg, Univer s (ULTRAM) 4-20 04-22 Oral, ity of tablet 50 02:34: 02:33 Q8HPRN, [place] mg 23 :23 Starting Medical [facility] 03/04/20 at 2133, Until 03/06/20 at 3, Routine, Pain (scale 4-6) acetaminoph 2019-0 Yes 650mg 650 mg, Un mel en 20 Oral, ity of (TYLENOL) 02:34: Q6HPRN, [place] tablet 650 20 Starting Medic al mg [facility] 03/04/20 at 2133, Until Discontinu ed, Routine, Pain (scale 1-3) lisinopril 2019-0 Yes [id number] 5mg Take 1 Univers 5 mg tablet 4-18 tablet by ity of 00:00: mouth [place] 00 daily. Medical Branch isosorbide 2019-0 Yes [id number] 30mg Take 1 Univers mononitrate 4-18 tablet by ity of 30 mg 24 hr 00:00: mouth [place] tablet 00 daily. Medical Branch lisinopril 2019-0 Yes [id number] 5mg Take 1 Univers 5 mg tablet 4-18 tablet by ity of 00:00: mouth [place] 00 daily. Medical Branch isosorbide 2019-0 Yes [id number] 30mg Take 1 Univers mononitrate 4-18 tablet by ity of 30 mg 24 hr 00:00: mouth [place] tablet 00 daily. Medical Branch lisinopril 2019-0 2020- No [id number] 5mg Take 1 Univers 5 mg tablet 4-18 04-22 tablet by it y of 00:00: 00:00 mouth [place] 00 :00 daily. Medical Branch isosorbide 2019-0 2020- No [id number] 30mg Take 1 Univers mononitrate 4-18 04-22 tablet by it y of 30 mg 24 hr 00:00: 00:00 [place] tablet 00 :00 daily. Medical Branch memantine-d 2019-0 Yes 1{capsu Take 1 U nivers onepezil 4-17 le} capsule by ity o f (NAMZARIC) 17:34: mouth [place] 28-10 mg 27 daily. Medical CSpX Branch folic 2020-0 Yes Take by Univers acid/vit B 4-17 mouth. ity of complex and 17:34: [place] C (B 27 Medical COMPLEX-VIT Branch RAZA C-FOLIC ACID ORAL) Cholecalcif 2020-0 Yes Take by Un mel ann, 4-17 mouth. ity of Vitamin D3, 17:34: [place] 2,000 unit 27 Medical capsule Branch metoprolol 2020-0 Yes 12.5mg Take 12.5 Univers tartrate 4-17 mg by ity of 12.5 mg 17:34: mouth 2 [place] 27 (two) Medical times Branch daily. MULTIVITAMI 2020-0 Yes Take by Un mel N ORAL 4-17 mouth. ity of 17:34: Medical Branch thiamine 2020-0 Yes 100mg Take 100 Univ ers (VITAMIN 4-17 mg by ity of B-1) 100 mg 17:34: mouth [place] tablet 27 daily. Medical Branch aspirin 81 2020-0 Yes 81mg Take 81 mg U nivers mg chewable 4-17 by mouth ity of tablet 17:34: daily. [place] [address] Medical Branch atorvastati 2020-0 Yes 40mg Take 40 mg Univers n 40 mg 4-17 by mouth ity of tablet 17:34: at [place] [address] bedtime. Medical Branch NaCl 0.9% 2020-0 Yes 10mL Inject 10 Uni vers (NS) Soln 4-17 mL ity of 10 mL with 17:34: intravenou [place] sodium 27 sly once Medical chloride now. Branch 2.5 mEq/mL SolP 17.125 mEq memantine-d 2020-0 Yes 1{capsu Take 1 U nivers onepezil 4-17 le} capsule by ity o f (NAMZARIC) 17:34: mouth [place] 28-10 mg 27 daily. Medical CSpX Branch folic 2020-0 Yes Take by Univers acid/vit B 4-17 mouth. ity of complex and 17:34: [place] C (B 27 Medical COMPLEX-VIT Branch RAZA C-FOLIC ACID ORAL) Cholecalcif 2020-0 Yes Take by Un mel ann, 4-17 mouth. ity of Vitamin D3, 17:34: [place] 2,000 unit 27 Medical capsule Branch metoprolol 2020-0 Yes 12.5mg Take 12.5 Univers tartrate 4-17 mg by ity of 12.5 mg 17:34: mouth 2 [place] 27 (two) Medical times Branch daily. MULTIVITAMI 2020-0 Yes Take by Un mel N ORAL 4-17 mouth. ity of 17:34: Medical Branch thiamine 2020-0 Yes 100mg Take 100 Univ ers (VITAMIN 4-17 mg by ity of B-1) 100 mg 17:34: mouth [place] tablet 27 daily. Medical Branch aspirin 81 2020-0 Yes 81mg Take 81 mg U nivers mg chewable 4-17 by mouth ity of tablet 17:34: daily. [place] Medical Branch atorvastati 2019-0 Yes 40mg Take 40 mg Univers n 40 mg 4-17 by mouth ity of tablet 17:34: at [place] 27 bedtime. Medical Branch NaCl 0.9% 2020-0 Yes 10mL Inject 10 Uni vers (NS) Soln 4-17 mL ity of 10 mL with 17:34: intravenou [place] sodium 27 sly once Medical chloride now. Branch 2.5 mEq/mL SolP 17.125 mEq potassium 2020-0 2020- No 20meq Take 20 Uni vers chloride 20 4-17 04-17 mEq by ity o f mEq packet 15:53: 00:00 mouth [place] 05 :00 daily. Medical Branch donepezil 2020-0 Yes 5mg 5 mg, Univers (ARICEPT) 4-17 Oral, QHS, ity of tablet 5 mg 02:00: First dose on [facility] 03/01/20 at Branch 2100, Until Discontinu ed, Routine furosemide 2020-0 Yes [id number] 40mg Take 1 Univers 40 mg 4-17 tablet by ity of tablet 00:00: mouth [place] 00 every Medical morning Branch and evening. potassium 2020-0 Yes [id number] 20meq Take 20 Univers chloride 20 4-17 mEq by ity of mEq packet 00:00: mouth [place] 00 daily. Medical Branch vitamin 2020-0 Yes [id number] 1000ug Take 1 U nivers B-12 1,000 4-17 tablet by ity of mcg tablet 00:00: mouth [place] 00 daily. Medical Branch furosemide 2020-0 Yes [id number] 40mg Take 1 Univers 40 mg 4-17 tablet by ity of tablet 00:00: mouth [place] 00 every Medical morning Branch and evening. potassium 2020-0 Yes [id number] 20meq Take 20 Univers chloride 20 4-17 mEq by ity of mEq packet 00:00: mouth [place] 00 daily. Medical Branch vitamin 2020-0 Yes [id number] 1000ug Take 1 U nivers B-12 1,000 4-17 tablet by ity of mcg tablet 00:00: mouth [place] 00 daily. Medical Branch furosemide 2020-0 2020- No [id number] 40mg Take 1 Univers 40 mg 4-17 04-22 tablet by ity of tablet 00:00: 00:00 mouth [place] 00 :00 every Medical morning Branch and evening. potassium 2020-0 2020- No [id number] 20meq Take 20 Univers chloride 20 4-17 04-22 mEq by ity o f mEq packet 00:00: 00:00 mouth [place] 00 :00 daily. Medical Branch vitamin 2020-0 2020- No [id number] 1000ug Take 1 Univers B-12 1,000 4-17 04-22 tablet by ity of mcg tablet 00:00: 00:00 mouth [place] 00 :00 daily. Medical Branch cyanocobala 2020-0 Yes 1000ug 1,000 mcg, Univers min 4-16 Subcutaneo ity of (VITAMIN 20:45: [place], Q24H, [place] B12) 00 First dose Medical injection on [facility]3] 1,000 mcg 03/01/20 at 1545, Until Discontinu ed, Routine isosorbide 2020-0 Yes 30mg 30 mg, Unive rs mononitrate 4-16 Oral, ity of (IMDUR) 24 14:00: DAILY, [place] hr tablet 00 First dose Medi birdie 30 mg on [facility]3] 03/01/20 at 0900, Until Discontinu ed, Routine memantine 2020-0 Yes 10mg 10 mg, Univer s (NAMENDA) 4-16 Oral, ity of tablet 10 14:00: DAILY, [place] mg 00 First dose Medical on [facility]3] 03/01/20 at 0900, Until Discontinu ed, Routine
managing member approving Restricted medication : MEGADC lisinopril 2020-0 Yes 5mg 5 mg, Univer s (PRINIVIL,Z 4-16 Oral, ity of ESTRIL) 14:00: DAILY, [place] tablet 5 mg 00 First dose Me dical on [facility] Branch 03/01/20 at 0900, Until Discontinu ed, Routine enoxaparin 2020-0 Yes 30mg 30 mg, Unive rs (LOVENOX) 03-01 Subcutaneo ity of injection 14:00: [place], DAILY, [place] 30 mg 00 First dose Medical on [facility]3] 03/01/20 at 0900, Until Discontinu ed, Routine KCL 2020-0 2020- No 20meq 20 mEq, Univers (KLOR-CON 03-01 Oral, ity of M20) tablet 14:00: 13:26 DAILY, [place] 20 mEq 00 :35 First dose Medical on [facility] Branch 03/01/20 at 0900, Until Discontinu ed, Routine KCL 2020-0 Yes 40meq 40 mEq, Univers (KLOR-CON 16 Oral, BID, ity of M20) tablet 13:30: First dose [place] 40 mEq 00 on [facility] 03/01/20 at Branch 0830, Until Discontinu ed, Routine magnesium 2020-0 2020- No 2g 2 g, IV Univ ers sulfate in 03-01 Infusion, ity of water 2 03:30: 03:30 ONCE, 1 [place] gram/50 mL 00 :00 dose, [facility] birdie (4 %) 2 g 02/29/20 at [facility] piggyback 2230 metoprolol 2020-0 2020- No 5mg 5 mg, Slow Univers (LOPRESSOR) 03-01 IV Push, ity of injection 5 03:30: 03:37 ONCE, 1 [place] mg 00 :00 dose, [facility] 02/29/20 at Branch 2230, ADAMA glipiZIDE 2020-0 Yes 5mg 5 mg, Univers (GLUCOTROL) 03-01 Oral, ity of tablet 5 mg 02:45: BIDAC, [place] 00 First dose Medical on [facility] 02/29/20 at 2145, Until Discontinu ed, Routine insulin 2020-0 Yes 10U 10 Units, Unive rs glargine 03-01 Subcutaneo ity o f (LANTUS 02:45: us, [facility], [place] U-100) 00 First dose Medical injection on [facility] Branch 10 Units 02/29/20 at 2145, Until Discontinu ed, Routine OLANZapine 2020-0 Yes 2.5mg 2.5 mg, Uni vers (ZyPREXA) 4-16 Oral, QHS, ity of tablet 2.5 02:45: First dose [place] mg 00 on Thu02/29/20 at Branch 2145, Until Discontinu ed, Routine ranolazine 2020-0 Yes 500mg 500 mg, Uni vers (RANEXA) 12 4-16 Oral, ity of hr tablet 02:30: Q12H, [place] 500 mg 00 First dose Medical on Thu02/29/20 at 2130, Until Discontinu ed, Routine spironolact 2020-0 Yes 12.5mg 12.5 mg, Univers one 4-16 Oral, ity of (ALDACTONE) 02:30: DAILY, [place] tablet 12.5 00 First dose Me dical mg on Thu [place] 02/29/20 at 2130, Until Discontinu ed, Routine metoprolol 2020-0 Yes 25mg 25 mg, Unive rs succinate 4-16 Oral, BID, ity of XL (TOPROL 02:30: First dose [place] XL) tablet 00 on Thu Medical 25 mg 02/29/20 at Branch 2130, Until Discontinu ed, Routine atorvastati 2020-0 Yes 40mg 40 mg, Univ ers n (LIPITOR) 4-16 Oral, QHS, it y of tablet 40 02:30: First dose [place] mg [address] [facility] 02/29/20 at Branch 2130, Until Discontinu ed, Routine aspirin 2020-0 Yes 81mg 81 mg, Univers chewable 4-16 Oral, QAM ity of tablet 81 02:30: WITH [place] mg 00 BREAKFAST, Medical First dose Branch on Thu02/29/20 at 2130, Until Discontinu ed, Routine magnesium 2020-0 Yes 400mg 400 mg, Univ ers oxide 4-16 Oral, BID, ity of (MAG-OX 02:30: First dose [place] 400) tablet 00 on Thu Medica l 400 mg 02/29/20 at Branch 2130, Until Discontinu ed, Routine furosemide 2020-0 Yes 40mg 40 mg, Unive rs (LASIX) 4-16 Slow IV ity of injection 02:30: Push, [place] 40 mg 00 Q12H, Medical First dose Branch on Thu02/29/20 at 2130, Until Discontinu ed, Routine KCL 2020- 2020- No 40meq 40 mEq, Univers (KLOR-CON 16 -16 Oral, ity of M20) tablet 01:00: 02:05 ONCE, 1 [place] 40 mEq 00 :00 dose, Wed Medical 02/29/20 at Branch 2000, Routine acetaminoph 2019-0 Yes 650mg 650 mg, Un mel en 15 Oral, ity of (TYLENOL) 23:57: Q6HPRN, [place] tablet 650 25 Starting Medic al mg Wed [place] 02/29/20 at 1857, Until Discontinu ed, Routine, Pain (scale 1-3) NaCl 0.9% 2019- 2020- No 500mL at 999 Univ ers (NS) bolus 02-28 mL/hr, 500 it y of infusion 23:30: 23:37 mL, IV [place] 500 mL 00 :00 Infusion, Medical ONCE, 1 Branch dose, [facility] 02/29/20 at 1830, ADAMA acetaminoph 2019-2019- No 650mg 650 mg, U nivers en 02-28 Oral, ity of (TYLENOL) 23:00: 22:36 ONCE, 1 [place] tablet 650 00 :00 dose, Thu Medi birdie mg 02/29/20 at Branch 1800, ADAMA donepezil 5 2019-0 Yes 5mg Take 5 mg U nivers mg tablet 02-14 by mouth ity of 00:00: daily. [address] donepezil 5 2019-0 2020- No 5mg Take 5 mg Univers mg tablet 02-1408 by mouth ity o f 00:00: 00:00 daily. [place] 00 :00 [facility] nitroglycer 2019- 2020- No DISSOLVE U nivers in 0.4 mg 02-14 ONE TABLET ity of sublingual 00:00: 00:00 UNDER THE [place] tablet 00 :00 TONGUE Medical EVERY 5 Branch MINUTES NEEDED FOR CHEST PAIN. DO NOT EXCEED A TOTAL OF 3 DOSES IN 15 MINUTES KCL 10 mEq 2019-0 2020- No 10meq Take 10 Un mel tablet 02-14 05-07 mEq by ity of 00:00: 00:00 mouth [place] 00 :00 daily. Medical Branch nitroglycer 2019- 2020- No DISSOLVE U nivers in 0.4 mg 4-01 05-07 ONE TABLET ity of sublingual 00:00: 00:00 UNDER THE [place] tablet 00 :00 TONGUE Medical EVERY 5 Branch MINUTES NEEDED FOR CHEST PAIN. DO NOT EXCEED A TOTAL OF 3 DOSES IN 15 MINUTES KCL 10 mEq 2020-0 2020- No 10meq Take 10 Un mel tablet 02-14 05-07 mEq by ity of 00:00: 00:00 mouth [place] 00 :00 daily. Medical Branch memantine-d 2020-0 Yes 1{capsu Take 1 U nivers onepezil 3-03 le} capsule by ity o f (NAMZARIC) 23:00: mouth [place] 28-10 mg 52 daily. Medical CSpX Branch folic 2020-0 Yes Take by Univers acid/vit B 3-03 mouth. ity of complex and 23:00: [place] C (B 52 Medical COMPLEX-VIT Branch RAZA C-FOLIC ACID ORAL) potassium 2020-0 Yes 20meq Take 20 Univ ers chloride 20 3-03 mEq by ity of mEq packet 23:00: mouth [place] 52 daily. Medical Branch Cholecalcif 2020-0 Yes Take by Un mel ann, 3-03 mouth. ity of Vitamin D3, 23:00: [place] 2,000 unit 52 Medical capsule Branch metoprolol 2020-0 Yes 12.5mg Take 12.5 Univers tartrate 3-03 mg by ity of 12.5 mg 23:00: mouth 2 [place] 52 (two) Medical times Branch daily. MULTIVITAMI 2020-0 Yes Take by Un mel N ORAL 3-03 mouth. ity of 23:00: [place] [address] Medical Branch thiamine 2020-0 Yes 100mg Take 100 Univ ers (VITAMIN 3-03 mg by ity of B-1) 100 mg 23:00: mouth [place] tablet 52 daily. Medical Branch aspirin 81 2020-0 Yes 81mg Take 81 mg U nivers mg chewable 3-03 by mouth ity of tablet 23:00: daily. [place] [address] Medical Branch atorvastati 2020-0 Yes 40mg Take 40 mg Univers n 40 mg 3-03 by mouth ity of tablet 23:00: at [place] [address] bedtime. Medical Branch NaCl 0.9% 2020-0 Yes 10mL Inject 10 Uni vers (NS) Soln 3-03 mL ity of 10 mL with 23:00: intravenou [place] sodium 52 sly once Medical chloride now. Branch 2.5 mEq/mL SolP 17.125 mEq memantine-d 2020-0 Yes 1{capsu Take 1 U nivers onepezil 3-03 le} capsule by ity o f (NAMZARIC) 23:00: mouth [place] 28-10 mg 52 daily. Medical CSpX Branch folic 2020-0 Yes Take by Univers acid/vit B 3-03 mouth. ity of complex and 23:00: [place] C (B 52 Medical COMPLEX-VIT Branch RAZA C-FOLIC ACID ORAL) potassium 2020-0 Yes 20meq Take 20 Univ ers chloride 20 3-03 mEq by ity of mEq packet 23:00: mouth [place] 52 daily. Medical Branch Cholecalcif 2020-0 Yes Take by Un mel ann, 3-03 mouth. ity of Vitamin D3, 23:00: [place] 2,000 unit 52 Medical capsule Branch metoprolol 2020-0 Yes 12.5mg Take 12.5 Univers tartrate 3-03 mg by ity of 12.5 mg 23:00: mouth 2 [place] 52 (two) Medical times Branch daily. MULTIVITAMI 2020-0 Yes Take by Un mel N ORAL 3-03 mouth. ity of 23:00: [place] [address] Medical Branch thiamine 2020-0 Yes 100mg Take 100 Univ ers (VITAMIN 3-03 mg by ity of B-1) 100 mg 23:00: mouth [place] tablet 52 daily. Medical Branch aspirin 81 2020-0 Yes 81mg Take 81 mg U nivers mg chewable 3-03 by mouth ity of tablet 23:00: daily. [place] [address] Medical Branch atorvastati 2020-0 Yes 40mg Take 40 mg Univers n 40 mg 3-03 by mouth ity of tablet 23:00: at [place] 52 bedtime. Medical Branch NaCl 0.9% 2020-0 Yes 10mL Inject 10 Uni vers (NS) Soln 3-03 mL ity of 10 mL with 23:00: intravenou [place] sodium 52 sly once Medical chloride now. Branch 2.5 mEq/mL SolP 17.125 mEq memantine-d 2020-0 Yes 1{capsu Take 1 U nivers onepezil 3-03 le} capsule by ity o f (NAMZARIC) 23:00: mouth [place] 28-10 mg 52 daily. Medical CSpX Branch folic 2020-0 Yes Take by Univers acid/vit B 3-03 mouth. ity of complex and 23:00: [place] C ( 52 Medical COMPLEX-VIT Branch RAZA C-FOLIC ACID ORAL) potassium 2020-0 Yes 20meq Take 20 Univ ers chloride 20 3-03 mEq by ity of mEq packet 23:00: mouth [place] 52 daily. Medical Branch Cholecalcif 2020-0 Yes Take by Un mel ann, 3-03 mouth. ity of Vitamin D3, 23:00: [place] 2,000 [facility] 52 Medical capsule Branch metoprolol 2020-0 Yes 12.5mg Take 12.5 Univers tartrate 3-03 mg by ity of 12.5 mg 23:00: mouth 2 [place] 52 (two) Medical times Branch daily. MULTIVITAMI 2020-0 Yes Take by Un mel N ORAL 3-03 mouth. ity of 23:00: [place] [address] Medical Branch thiamine 2020-0 Yes 100mg Take 100 Univ ers (VITAMIN 3-03 mg by ity of B-1) 100 mg 23:00: mouth [place] tablet 52 daily. Medical Branch aspirin 81 2020-0 Yes 81mg Take 81 mg U nivers mg chewable 3-03 by mouth ity of tablet 23:00: daily. [place] [address] Medical Branch atorvastati 2020-0 Yes 40mg Take 40 mg Univers n 40 mg 3-03 by mouth ity of tablet 23:00: at [place] [address] bedtime. Medical Branch NaCl 0.9% 2020-0 Yes 10mL Inject 10 Uni vers (NS) Soln 3-03 mL ity of 10 mL with 23:00: intravenou [place] sodium 52 sly once Medical chloride now. Branch 2.5 mEq/mL SolP 17.125 mEq memantine-d 2020-0 Yes 1{capsu Take 1 U nivers onepezil 3-03 le} capsule by ity o f (NAMZARIC) 23:00: mouth [place] 28-10 mg 52 daily. Medical CSpX Branch folic 2020-0 Yes Take by Univers acid/vit B 3-03 mouth. ity of complex and 23:00: [place] C (B 52 Medical COMPLEX-VIT Branch RAZA C-FOLIC ACID ORAL) potassium 2020-0 Yes 20meq Take 20 Univ ers chloride 20 3-03 mEq by ity of mEq packet 23:00: mouth [place] 52 daily. Medical Branch Cholecalcif 2020-0 Yes Take by Un mel ann, 3-03 mouth. ity of Vitamin D3, 23:00: [place] 2,000 [facility] 52 Medical capsule Branch metoprolol 2020-0 Yes 12.5mg Take 12.5 Univers tartrate 3-03 mg by ity of 12.5 mg 23:00: mouth 2 [place] 52 (two) Medical times Branch daily. MULTIVITAMI 2020-0 Yes Take by Un mel N ORAL 3-03 mouth. ity of 23:00: [place] [address] Medical Branch thiamine 2020-0 Yes 100mg Take 100 Univ ers (VITAMIN 3-03 mg by ity of B-1) 100 mg 23:00: mouth [place] tablet 52 daily. Medical Branch aspirin 81 2020-0 Yes 81mg Take 81 mg U nivers mg chewable 3-03 by mouth ity of tablet 23:00: daily. [place] [address] Medical Branch atorvastati 2020-0 Yes 40mg Take 40 mg Univers n 40 mg 3-03 by mouth ity of tablet 23:00: at [place] [address] bedtime. Medical Branch NaCl 0.9% 2019-0 Yes 10mL Inject 10 Uni vers (NS) Soln 3-03 mL ity of 10 mL with 23:00: intravenou [place] sodium 52 sly once Medical chloride now. Branch 2.5 mEq/mL SolP 17.125 mEq atorvastati 2019-0 Yes 40mg 40 mg, Univ ers n (LIPITOR) 3-03 Oral, QHS, it y of tablet 40 03:00: First dose [place] mg 00 on [facility] 01/16/20 at Branch 2100, Until Discontinu ed, Routine ranolazine 2019-0 2020- No [id number] 500mg Take 1 Univers 500 mg 12 01-16 04-03 tablet by ity of hr tablet 00:00: 04:59 mouth [place] 00 :00 every 12 Medical (twelve) Branch hours for 30 days. ranolazine 2020-0 2020- No [id number] 500mg Take 1 Univers 500 mg 12 - 04-03 tablet by ity of hr tablet 00:00: 04:59 mouth [place] 00 :00 every 12 Medical (twelve) Branch hours for 30 days. ranolazine 2020-0 2020- No [id number] 500mg Take 1 Univers 500 mg 12 - 04-03 tablet by ity of hr tablet 00:00: 04:59 mouth [place] 00 :00 every 12 Medical (twelve) Branch hours for 30 days. ranolazine 2020-0 2020- No [id number] 500mg Take 1 Univers 500 mg 12 01-16-03 tablet by ity of hr tablet 00:00: 04:59 mouth [place] 00 :00 every 12 Medical (twelve) Branch hours for 30 days. ranolazine 2020-0 Yes 500mg 500 mg, Uni vers (RANEXA) 12 01-15 Oral, ity of hr tablet 22:30: Q12H, [place] 500 mg 00 First dose Medical on [facility] 01/16/20 at 1630, Until Discontinu ed, Routine insulin 2020-0 Yes 30U 30 Units, Unive rs glargine 01-15 Subcutaneo ity o f (LANTUS 15:00: us, DAILY, [place] U-100) 00 First dose Medical injection on [facility] 30 Units 01/16/20 at 0900, Until Discontinu ed furosemide 2020-0 Yes 40mg 40 mg, Unive rs (LASIX) 01-15 Oral, ity of tablet 40 15:00: DAILY, [place] mg 00 First dose Medical on [facility] 01/16/20 at 0900, Until Discontinu ed, Routine aspirin 2020-0 Yes 81mg 81 mg, Univers chewable 01-15 Oral, ity of tablet 81 15:00: DAILY, [place] mg 00 First dose Medical on [facility] 01/16/20 at 0900, Until Discontinu ed, Routine metoprolol 2020-0 Yes 12.5mg 12.5 mg, U nivers tartrate 01-15 Oral, BID, ity o f (LOPRESSOR) 14:00: First dose [place] tablet 12.5 00 on [facility] Medica l mg 01/16/20 at Branch 0800, Until Discontinu ed, Routine Sliding 2020-0 Yes Subcutaneo Univ ers Scale 3-02 us, Q6H, ity of Insulin-Reg 12:00: First dose [place] ular + Fsbg 00 on [facility] Medica l Testing 01/16/20 at Branch 0600, Until Discontinu ed, Routine glucagon 2020-0 Yes 1mg 1 mg, Univers (GLUCAGEN 01-15 Intramuscu ity of DIAGNOSTIC 10:52: [place], PRN, [place] KIT) 33 Starting Medical injection 1 Thu01/16/20 Br anch mg at 0452, Until Discontinu ed, ADAMA, Blood Glucose < or = 70 mg/dL and patient is unable to swallow or has mental changes. dextrose 50 2020-0 Yes 25mL 25 mL, Univ ers % in water 01-15 Slow IV ity of (D50W) 10:52: Push, PRN, [place] injection 33 Starting Medica l 25 mL 01/16/20 Branch at 0452, Until Discontinu ed, ADAMA, Blood Glucose < or = 70 mg/dL and patient is unable to swallow or has mental status changes. nitroglycer 2019-0 Yes .4mg 0.4 mg, Uni vers in 01-15 Sublingual ity of (NITROSTAT) 07:57: , Q5MIN [place] as sublingual 30 PRN, Medical tablet 0.4 Starting Branc h mg 01/16/20 at 0157, Until Discontinu ed, Routine, Chest pain ondansetron 2019-0 Yes 4mg 4 mg, Slow Univers (ZOFRAN 01-15 IV Push, ity of (PF)) 07:55: Q6HPRN, [place] injection 4 01 Starting Medi birdie mg 01/16/20 Branch at 0155, Until Discontinu ed, Routine, Nausea and Vomiting (N/V) morpHINE 2019-0 2020- No 2mg 2 mg, Slow Un mel injection 2 01-15 03-03 IV Push, ity of mg 07:54: 07:53 Q6HPN, [place] 55 :55 Starting Medical 01/16/20 Branch at 0154, Until Tu01/17/20 at 0153, Routine, Pain (scale 7-10) traMADol 2019-0 2020- No 50mg 50 mg, Univer s (ULTRAM) 01-15 03-04 Oral, ity of tablet 50 07:54: 07:53 Q8HPRN, [place] 47 :47 Starting Medical 01/16/20 Branch at 0154, Until Thu01/18/20 at 0153, Routine, Pain (scale 4-6) acetaminoph 2019-0 Yes 650mg 650 mg, Un mel en 01-15 Oral, ity of (TYLENOL) 07:54: [id number], [place] tablet 650 44 Starting Medic al mg 3/2/20 Branch at 0154, Until Discontinu ed, Routine, Pain (scale 1-3) insulin 2020-0 2020- No 8U 8 Units, Unive rs regular 01-15 03-02 Slow IV ity of human 06:45: 05:40 Push, [place] (HUMULIN R) 00 :00 ONCE, 1 Medic al injection 8 dose, Mon Bra nch Units 01/16/20 at 0045, STAT heparin 2020-0 Yes 1000U/h 1,000 Univer s 25,000 3-02 Units/hr ity of unit/250 mL 06:00: (10 [place] (Premixed 00 mL/hr), IV Medi birdie Bag) in Infusion, Branch NaCl 0.45 % CONTINUOUS weight , Starting based Thu01/16/20 dosing ACS at 0000, protocol Until Discontinu ed heparin 2019-0 2020- No 4000U 4,000 Univers 1000 01-15-02 Units, IV ity of unit/mL 05:45: 05:47 Push, [place] injection 00 :00 ONCE, 1 Medical Soln 4,000 dose, Sun Bran ch Units 01/15/20 at 2345, [place] furosemide 2018-11 Yes [id number] 40mg Take 1 Univers 40 mg 0-26 tablet by ity of tablet 00:00: mouth [place] 00 daily. Medical Branch furosemide 2018-11 Yes [id number] 40mg Take 1 Univers 40 mg 0-26 tablet by ity of tablet 00:00: mouth [place] 00 daily. Medical Branch furosemide 2018-11 Yes [id number] 40mg Take 1 Univers 40 mg 0-26 tablet by ity of tablet 00:00: mouth [place] 00 daily. Medical Branch furosemide 2018-11 Yes [id number] 40mg Take 1 Univers 40 mg 0-26 tablet by ity of tablet 00:00: mouth [place] 00 daily. Medical Branch furosemide 2018-11 2020- No [id number] 40mg Take 1 Univers 40 mg 0-26 04-17 tablet by ity of tablet 00:00: 00:00 mouth [place] 00 :00 daily. Medical Branch magnesium 2018- Yes [id number] 400mg Take 400 Univers oxide 420 0-23 mg by ity of mg Tab 00:00: mouth [place] 00 daily. Medical Branch magnesium 2018- Yes [id number] 400mg Take 400 Univers oxide 420 0-23 mg by ity of mg Tab 00:00: mouth [place] 00 daily. Medical Branch magnesium 2018- Yes [id number] 400mg Take 400 Univers oxide 420 0-23 mg by ity of mg Tab 00:00: mouth [place] 00 daily. Medical Branch magnesium 2019- Yes [id number] 400mg Take 400 Univers oxide 420 0-23 mg by ity of mg Tab 00:00: mouth [place] 00 daily. Medical Branch magnesium 2019- Yes [id number] 400mg Take 400 Univers oxide 420 0-23 mg by ity of mg Tab 00:00: mouth [place] 00 daily. Medical Branch magnesium 2019- Yes [id number] 400mg Take 400 Univers oxide 420 0-23 mg by ity of mg Tab 00:00: mouth [place] [address] [facility] Branch magnesium 2018- 2020- No [id number] 400mg Take 400 Univers oxide 420 0-23 04-22 mg by ity of mg Tab 00:00: 00:00 mouth [place] 00 :[address] [facility] Branch Insulin 2019-0 Yes [id number] 30U inject 30 Univers Glargine 9-11 Units ity of 100 unit/mL 00:00: under the [place] (3 mL) 00 skin every Medical injection morning. Branch Insulin 2018-0 Yes [id number] 30U inject 30 Univers Glargine 9-11 Units ity of 100 unit/mL 00:00: under the [place] (3 mL) 00 skin every Medical injection morning. Branch Insulin 2019-0 Yes [id number] 30U inject 30 Univers Glargine 9-11 Units ity of 100 unit/mL 00:00: under the [place] (3 mL) 00 skin every Medical injection morning. Branch Insulin 2019-0 Yes [id number] 30U inject 30 Univers Glargine 9-11 Units ity of 100 unit/mL 00:00: under the [place] (3 mL) 00 skin every Medical injection morning. Branch Insulin 2019-0 Yes [id number] 30U inject 30 Univers Glargine 9-11 Units ity of 100 unit/mL 00:00: under the [place] (3 mL) 00 skin every Medical injection morning. Branch Insulin 2019-0 Yes [id number] 30U inject 30 Univers Glargine 9-11 Units ity of 100 unit/mL 00:00: under the [place] (3 mL) 00 skin every Medical injection morning. Branch Insulin 2019-0 Yes [id number] 30U inject 30 Univers Glargine 9-11 Units ity of 100 unit/mL 00:00: under the [place] (3 mL) 00 skin every Medical injection morning. Branch Insulin 2020- No [id number] 30U inject 30 Univers Glargine 9-11 04-22 Units ity of 100 unit/mL 00:00: 00:00 under the [place] (3 mL) 00 :00 skin every Medical injection morning. Branch memantine-d Yes 1{capsu Take 1 U nivers onepezil 5-10 le} capsule by ity o f (NAMZARIC) 15:26: mouth [place] 28-10 mg 43 daily. Medical CSpX Branch enoxaparin Yes 30mg inject 30 Un mel injection 5-10 mg under ity of 15:26: the skin. [place] [address] Medical Branch Cholecalcif Yes Take by Un mel ann, 5-10 mouth. ity of Vitamin D3, 15:26: [place] 2,000 unit Medical capsule Branch metoprolol Yes 12.5mg Take 12.5 Univers tartrate 5-10 mg by ity of 12.5 mg 15:26: mouth 2 [place] [address] (two) Medical times Branch daily. MULTIVITAMI Yes Take by Un mel N ORAL 5-10 mouth. ity of 15:26: [place] [address] Medical Branch thiamine Yes 100mg Take 100 Univ ers (VITAMIN 5-10 mg by ity of B-1) 100 mg 15:26: mouth [place] tablet 43 daily. Medical Branch aspirin 81 Yes 81mg Take 81 mg U nivers mg chewable 5-10 by mouth ity of tablet 15:26: daily. [place] [address] Medical Branch atorvastati 0 Yes 40mg Take 40 mg Univers n 40 mg 5-10 by mouth ity of tablet 15:26: at [place] 43 bedtime. Medical Branch furosemide 0 Yes 40mg Take 40 mg U nivers 40 mg 5-10 by mouth ity of tablet 15:26: daily. [place] [address] Medical Branch NaCl 0.9% 2018-0 Yes 10mL Inject 10 Uni vers (NS) Soln 5-10 mL ity of 10 mL with 15:26: intravenou [place] sodium 43 sly once Medical chloride now. Branch 2.5 mEq/mL SolP 17.125 mEq memantine-d 2018-0 Yes 1{capsu Take 1 U nivers onepezil 5-10 le} capsule by ity o f (NAMZARIC) 15:26: mouth [place] 28-10 mg 43 daily. Medical CSpX Branch enoxaparin 0 Yes 30mg inject 30 Un mel injection 5-10 mg under ity of 15:26: the skin. [place] [address] Medical Branch Cholecalcif 0 Yes Take by Un mel ann, 5-10 mouth. ity of Vitamin D3, 15:26: [place] 2,000 unit 43 Medical capsule Branch metoprolol 0 Yes 12.5mg Take 12.5 Univers tartrate 5-10 mg by ity of 12.5 mg 15:26: mouth 2 [place] 43 (two) Medical times Branch daily. MULTIVITAMI 0 Yes Take by Un mel N ORAL 5-10 mouth. ity of 15:26: [place] [address] Medical Branch thiamine 0 Yes 100mg Take 100 Univ ers (VITAMIN 5-10 mg by ity of B-1) 100 mg 15:26: mouth [place] tablet 43 daily. Medical Branch aspirin 81 0 Yes 81mg Take 81 mg U nivers mg chewable 5-10 by mouth ity of tablet 15:26: daily. [place] [address] Medical Branch atorvastati 0 Yes 40mg Take 40 mg Univers n 40 mg 5-10 by mouth ity of tablet 15:26: at [place] 43 bedtime. Medical Branch furosemide 0 Yes 40mg Take 40 mg U nivers 40 mg 5-10 by mouth ity of tablet 15:26: daily. [place] [address] Medical Branch NaCl 0.9% 0 Yes 10mL Inject 10 Uni vers (NS) Soln 5-10 mL ity of 10 mL with 15:26: intravenou [place] sodium 43 sly once Medical chloride now. Branch 2.5 mEq/mL SolP 17.125 mEq insulin 2018-0 Yes [id number] 4U inject 4 U nivers lispro, 5-10 Units ity of human, 100 00:00: under the [place] unit/mL 00 skin 3 Medical injection (three) Branch times daily before meals. insulin Yes [id number] 4U inject 4 U nivers lispro, 5-10 Units ity of human, 100 00:00: under the [place] unit/mL 00 skin 3 Medical injection (three) Branch times daily before meals. insulin 2019-0 Yes [id number] 4U inject 4 U nivers lispro, 5-10 Units ity of human, 100 00:00: under the [place] unit/mL 00 skin 3 Medical injection (three) Branch times daily before meals. insulin 2019-0 Yes [id number] 4U inject 4 U nivers lispro, 5-10 Units ity of human, 100 00:00: under the [place] unit/mL 00 skin 3 Medical injection (three) Branch times daily before meals. insulin 2018-0 Yes [id number] 4U inject 4 U nivers lispro, 5-10 Units ity of human, 100 00:00: under the [place] unit/mL 00 skin 3 Medical injection (three) Branch times daily before meals. insulin 2018-0 Yes [id number] 4U inject 4 U nivers lispro, 5-10 Units ity of human, 100 00:00: under the [place] unit/mL 00 skin 3 Medical injection (three) Branch times daily before meals. Insulin 2019-0 Yes [id number] 18U inject Uni vers Glargine 5-10 18-24 ity of 100 unit/mL 00:00: Units [place] (3 mL) 00 under the Medical injection skin every Bran ch morning. insulin 2018-0 Yes [id number] 4U inject 4 U nivers lispro, 5-10 Units ity of human, 100 00:00: under the [place] unit/mL 00 skin 3 Medical injection (three) Branch times daily before meals. insulin 2019-0 Yes [id number] 4U inject 4 U nivers lispro, 5-10 Units ity of human, 100 00:00: under the [place] unit/mL 00 skin 3 Medical injection (three) Branch times daily before meals. insulin 2019-0 Yes [id number] 4U inject 4 U nivers lispro, 5-10 Units ity of human, 100 00:00: under the [place] unit/mL 00 skin 3 Medical injection (three) Branch times daily before meals. insulin 2019-0 Yes [id number] 4U inject 4 U nivers lispro, 5-10 Units ity of human, 100 00:00: under the [place] unit/mL 00 skin 3 Medical injection (three) Branch times daily before meals. insulin 2018- Yes [id number] 4U inject 4 U nivers lispro, 5-10 Units ity of human, 100 00:00: under the [place] unit/mL 00 skin 3 Medical injection (three) Branch times daily before meals. insulin 2019- No [id number] 4U inject 4 Univers lispro, 5-10 05-07 Units ity of human, 100 00:00: 00:00 under the [place] unit/mL 00 :00 skin 3 Medical injection (three) Branch times daily before meals. insulin 2018-2019- No [id number] 4U inject 4 Univers lispro, 5-10 05-07 Units ity of human, 100 00:00: 00:00 under the [place] unit/mL 00 :00 skin 3 Medical injection (three) Branch times daily before meals. Insulin 2019- No [id number] 18U inject Un mel Glargine 03-25-11 18-24 ity of 100 unit/mL 00:00: 00:00 Units [place] (3 mL) 00 :00 under the Medical injection skin every Bran ch morning. folic 0 Yes Take by Univers acid/vit B 3-08 mouth. ity of complex and 16:39: [place] C ( 29 Medical COMPLEX-VIT Branch RAZA C-FOLIC ACID ORAL) potassium 2019-0 Yes 20meq Take 20 Univ ers chloride 20 3-08 mEq by ity of mEq packet 16:39: mouth [place] 29 daily. Medical Branch folic 2019-0 Yes Take by Univers acid/vit B 3-08 mouth. ity of complex and 16:39: [place] C (B 29 Medical COMPLEX-VIT Branch RAZA C-FOLIC ACID ORAL) potassium 2019-0 Yes 20meq Take 20 Univ ers chloride 20 3-08 mEq by ity of mEq packet 16:39: mouth [place] 29 daily. Medical Branch Potassium Potassium Yes Anneliese [address] [facility] with [facility] Tylenol # 3 Tylenol # 3 Yes Anneliese one tab [facility] Vitamin D-3 Vitamin [...] [facility] Immunizations Ordered Filled Immunization Date Status Comments [facility] e Immunization Name Name Influenza Virus 2018-09-09 Completed Universit y of Vaccine 00:00:00 [facility] Influenza Virus 2018-09-09 Completed Universit y of Vaccine 00:00:00 [facility] Influenza Virus 2018-09-09 Completed Universit y of Vaccine 00:00:00 [facility] Influenza Virus 2018-09-09 Completed Universit y of Vaccine 00:00:00 [facility] Influenza Virus 2018-09-09 Completed Universit y of Vaccine 00:00:00 [facility] Influenza Virus 2018-09-09 Completed Universit y of Vaccine 00:00:00 [facility] Influenza Virus 2018-09-09 Completed Universit y of Vaccine 00:00:00 [facility] Influenza Virus 2018-09-09 Completed Universit y of Vaccine 00:00:00 [facility] Influenza Virus 2018-09-09 Completed Universit y of Vaccine 00:00:00 [facility] Influenza Virus 2018-09-09 Completed Universit y of Vaccine 00:00:00 [facility] Influenza Virus 2018-09-09 Completed Universit y of Vaccine 00:00:00 [facility] Influenza Virus 2018-09-09 Completed Universit y of Vaccine 00:00:00 [facility] Influenza Virus 2018-09-09 Completed Universit y of Vaccine 00:00:00 [facility] Influenza Virus 2018-09-09 Completed Universit y of Vaccine 00:00:00 [facility] Influenza Virus 2018-09-09 Completed Universit y of Vaccine 00:00:00 [facility] Influenza Virus 2018-09-09 Completed Universit y of Vaccine 00:00:00 [facility] Influenza Virus 2018-09-09 Completed Universit y of Vaccine 00:00:00 [facility] Influenza Virus 2018-09-09 Completed Universit y of Vaccine 00:00:00 [facility] Pneumococcal 2016-11-02 Completed University o f Polysaccharide, 00:00:00 [place] Med ical PPSV23 (PNEUMOVAX) Branch Pneumococcal 2016-11-02 Completed University o f Polysaccharide, 00:00:00 [place] Med ical PPSV23 (PNEUMOVAX) Branch Pneumococcal 2016-11-02 Completed University o f Polysaccharide, 00:00:00 [place] Med ical PPSV23 (PNEUMOVAX) Branch Pneumococcal 2016-11-02 Completed University o f Polysaccharide, 00:00:00 [place] Med ical PPSV23 (PNEUMOVAX) Branch Pneumococcal 2016-11-02 Completed University o f Polysaccharide, 00:00:00 [place] Med ical PPSV23 (PNEUMOVAX) Branch Pneumococcal 2016-11-02 Completed University o f Polysaccharide, 00:00:00 [place] Med ical PPSV23 (PNEUMOVAX) Branch Pneumococcal 2016-11-02 Completed University o f Polysaccharide, 00:00:00 [place] Med ical PPSV23 (PNEUMOVAX) Branch Pneumococcal 2016-11-02 Completed University o f Polysaccharide, 00:00:00 [place] Med ical PPSV23 (PNEUMOVAX) Branch Pneumococcal 2016-11-02 Completed University o f Polysaccharide, 00:00:00 [place] Med ical PPSV23 (PNEUMOVAX) Branch Pneumococcal 2016-11-02 Completed University o f Polysaccharide, 00:00:00 [place] Med ical PPSV23 (PNEUMOVAX) Branch Pneumococcal 2016-11-02 Completed University o f Polysaccharide, 00:00:00 [place] Med ical PPSV23 (PNEUMOVAX) Branch Pneumococcal 2016-11-02 Completed University o f Polysaccharide, 00:00:00 [place] Med ical PPSV23 (PNEUMOVAX) Branch Pneumococcal 2016-11-02 Completed University o f Polysaccharide, 00:00:00 [place] Med ical PPSV23 (PNEUMOVAX) Branch Pneumococcal 2016-11-02 Completed University o f Polysaccharide, 00:00:00 [place] Med ical PPSV23 (PNEUMOVAX) Branch Pneumococcal 2016-11-02 Completed University o f Polysaccharide, 00:00:00 [place] Med ical PPSV23 (PNEUMOVAX) Branch Pneumococcal 2016-11-02 Completed University o f Polysaccharide, 00:00:00 [place] Med ical PPSV23 (PNEUMOVAX) Branch Pneumococcal 2016-11-02 Completed University o f Polysaccharide, 00:00:00 [place] Med ical PPSV23 (PNEUMOVAX) Branch Pneumococcal 2016-11-02 Completed University o f Polysaccharide, 00:00:00 [place] Med ical PPSV23 (PNEUMOVAX) Branch Vital Signs Vital Name Observation Time Observation Value Comments Source Systolic blood 2021-04-25 22:36:00 118 [facility]Hg[facility] 2021-04-25 22:36:00 70 mm[Hg] Unive [facility] Heart rate 2021-04-25 22:36:00 68 /min [facility] Respiratory rate 2021-04-25 22:36:00 18 /min [facility] Oxygen saturation in 2021-04-25 22:36:00 99 /min [facility] Arterial blood by [facility] [place] [facility] Pulse oximetry Branch Body temperature 2021-04-25 15:42:00 36.44 Priyanka [facility] Body weight 2021-04-25 15:42:00 81.647 kg [facility] BMI 2021-04-25 15:42:00 27.37 kg/m2 [facility] Systolic blood 2020-06-26 10:00:00 124 mm[Hg] Univer sity [facility] Diastolic blood 2020-06-26 10:00:00 78 mm[facility]Hg[facility] 2020-06-26 10:00:00 18 /min [facility] Oxygen saturation in 2020-06-26 10:00:00 98 /min University of Arterial blood by [place] [facility] birdie Pulse oximetry Branch Heart rate 2020-06-26 08:56:00 98 /min Universi ty of [place] [facility] Body temperature 2020-06-26 08:56:00 37.17 Priyanka Univ ersity of [place] [facility] Body weight 2020-06-26 08:56:00 74.844 kg Universi ty of [place] [facility] BMI 2020-06-26 08:56:00 25.09 kg/m2 [facility]i ty [facility] [place] [facility] Systolic blood 2020-06-26 10:00:00 124 mm[Hg] Univer sity of pressure [place] [facility] Diastolic blood 2020-06-26 10:00:00 78 mm[Hg] Unive rsity of pressure [place] [facility] Respiratory rate 2020-06-26 10:00:00 18 /min Univ ersity of [place] [facility] Oxygen saturation in 2020-06-26 10:00:00 98 /min University of Arterial blood by [facility] [place] [facility] Pulse oximetry Branch Heart rate 2020-06-26 08:56:00 98 /min Universi ty of [place] [facility] Body temperature 2020-06-26 08:56:00 37.17 Priyanka Univ ersity of [place] [facility] Body weight 2020-06-26 08:56:00 74.844 kg Universi ty of [place] [facility] BMI 2020-06-26 08:56:00 25.09 kg/m2 [facility]i ty [facility] [place] [facility] Systolic blood 2020-05-24 15:47:29 166 mm[Hg] Univer sity of pressure [place] [facility] Diastolic blood 2020-05-24 15:47:29 89 mm[Hg] Unive rsity of pressure [place] [facility] Heart rate 2020-05-24 15:47:29 86 /min Universi ty of [place] [facility] Respiratory rate 2020-05-24 15:47:29 16 /min Univ ersity of [place] [facility] Oxygen saturation in 2020-05-24 15:47:29 97 /min University of Arterial blood by [facility] [place] [facility] Pulse oximetry Branch Body temperature 2020-05-24 11:44:00 36.94 Priyanka Univ ersity of [place] [facility] Body height 2020-05-24 11:44:00 172.7 cm Universi ty of [place] [facility] Body weight 2020-05-24 11:44:00 74.844 kg Universi ty of [place] [facility] BMI 2020-05-24 11:44:00 25.09 kg/m2 Universi ty of [place] [facility] Systolic blood 2020-05-24 15:47:29 166 mm[Hg] Univer sity of pressure [place] [facility] Diastolic blood 2020-05-24 15:47:29 89 mm[Hg] Unive rsity of pressure [place] [facility] Heart rate 2020-05-24 15:47:29 86 /min Universi ty of [facility] Respiratory rate 2020-05-24 15:47:29 16 /min Univ ersity of [place] [facility] Oxygen saturation in 2020-05-24 15:47:29 97 /min University of Arterial blood by [place] [employer] birdie Pulse oximetry Branch Body temperature 2020-05-24 11:44:00 36.94 Priyanka Univ ersity of [facility] Body height 2020-05-24 11:44:00 172.7 cm Universi ty of [place] [facility] [place] Body weight 2020-05-24 11:44:00 74.844 kg Universi ty of [facility] BMI 2020-05-24 11:44:00 25.09 kg/m2 Universi ty of [facility] Systolic blood 2020-03-24 02:31:00 127 mm[Hg] Univer sity of pressure [facility] Diastolic blood 2020-03-24 02:31:00 72 mm[Hg] Unive rsity of pressure [facility] Heart rate 2020-03-24 02:31:00 69 /min Universi ty of [place] [facility] [place] Body temperature 2020-03-24 02:31:00 36.39 Priyanka Univ ersity of [facility] Respiratory rate 2020-03-24 02:31:00 18 /min Univ ersity of [facility] Oxygen saturation in 2020-03-24 02:31:00 97 /min University of Arterial blood by [place] [employer] birdie Pulse oximetry Branch Systolic blood 2020-03-23 21:35:00 100 mm[Hg] Univer sity of pressure [place] [facility] Diastolic blood 2020-03-23 21:35:00 59 mm[Hg] Unive rsity of pressure [place] [facility] Heart rate 2020-03-23 21:35:00 79 /min Universi ty of [facility] Body temperature 2020-03-23 21:35:00 36.78 Priyanka Univ ersity of [facility] Respiratory rate 2020-03-23 21:35:00 18 /min Univ ersity of [place] [facility] Oxygen saturation in 2020-03-23 21:35:00 99 /min University of Arterial blood by [place] [employer] birdie Pulse oximetry Branch Body weight 2020-03-23 09:41:00 76.613 kg Universi ty of [place] [facility] BMI 2020-03-23 09:41:00 26.45 kg/m2 Universi ty [facility] [place] [facility] Body height 2020-03-23 03:43:00 170.2 cm [facility]i ty [facility] [place] [facility] Systolic blood 2020-03-21 20:55:00 128 mm[Hg] Univer sity of pressure [place] [facility] Diastolic blood 2020-03-21 20:55:00 61 mm[Hg] Unive rsity of pressure [place] [facility] Heart rate 2020-03-21 20:55:00 75 /min Universi ty of [place] [facility] Respiratory rate 2020-03-21 20:55:00 10 /min Univ ersity of [place] [facility] Oxygen saturation in 2020-03-21 20:55:00 98 /min University of Arterial blood by [facility] [place] [facility] Pulse oximetry Branch Body temperature 2020-03-21 20:03:00 37.83 Priyanka Univ ersity of [place] [facility] Body height 2020-03-21 20:03:00 170.2 cm Universi ty [facility] [place] [facility] Body weight 2020-03-21 20:03:00 76.204 kg Universi ty [facility] [place] [facility] BMI 2020-03-21 20:03:00 26.31 kg/m2 [facility]i [facility] [place] [facility] Systolic blood 2020-03-07 20:50:00 118 mm[Hg] Univer sity of pressure [place] [facility] Diastolic blood 2020-03-07 20:50:00 65 mm[Hg] Unive rsity of pressure [place] [facility] Heart rate 2020-03-07 20:50:00 85 /min Universi ty [facility] [place] [facility] Body temperature 2020-03-07 20:50:00 36.39 Priyanka Univ ersity of [place] [facility] Respiratory rate 2020-03-07 20:50:00 18 /min Univ ersity of [place] [facility] Oxygen saturation in 2020-03-07 20:50:00 95 /min University of Arterial blood by [facility] [place] [facility] Pulse oximetry Branch Body height 2020-03-05 02:35:00 172.7 cm Universi ty [facility] [place] [facility] Body weight 2020-03-05 02:35:00 73.483 kg [facility]i ty [facility] [place] [facility] BMI 2020-03-05 02:35:00 24.63 kg/m2 [facility]i [facility] [place] [facility] Systolic blood 2020-03-02 15:49:00 122 mm[Hg] Univer sity of pressure [place] [facility] Diastolic blood 2020-03-02 15:49:00 81 mm[Hg] Unive rsity of pressure [place] [facility] Heart rate 2020-03-02 15:49:00 89 /min Universi ty [facility] [place] [facility] Body temperature 2020-03-02 15:49:00 37.06 Priyanka Univ ersity [facility] [place] [facility] Respiratory rate 2020-03-02 15:49:00 19 /min Univ ersity of [place] [facility] Oxygen saturation in 2020-03-02 15:49:00 96 /min University of Arterial blood by [facility] [place] [facility] Pulse oximetry Branch Body height 2020-03-01 00:54:00 170.2 cm Universi ty [facility] [place] [facility] Body weight 2020-03-01 00:54:00 76.975 kg Universi ty [facility] [place] [facility] BMI 2020-03-01 00:54:00 26.58 kg/m2 [facility]i [facility] [place] [facility] Systolic blood 2020-01-17 21:08:00 116 mm[Hg] Univer sity of pressure [facility] Diastolic blood 2020-01-17 21:08:00 78 mm[Hg] Unive rsity of pressure [place] [facility] Heart rate 2020-01-17 21:08:00 88 /min Universi ty [facility] [place] [facility] Body temperature 2020-01-17 21:08:00 36.72 Priyanka Univ ersity of [place] [facility] Respiratory rate 2020-01-17 21:08:00 18 /min Univ ersity of [place] [facility] Oxygen saturation in 2020-01-17 21:08:00 98 /min University of Arterial blood by [place] [employer] birdie Pulse oximetry Branch Body height 2020-01-16 06:21:00 172.7 cm [facility]i ty [facility] [place] [facility] Body weight 2020-01-16 04:35:00 83.462 kg [facility] [place] [facility] BMI 2020-01-16 04:35:00 27.98 kg/m2 [facility] [place] [facility] Procedures Procedure Date / Time Performing Clinician Source Performed URINALYSIS 2021-04-25 21:01:00 Nallely Zhao [facility] XR LUMBAR SPINE 2 VW 2021-04-25 18:41:00 Nallely Zhao [facility] XR HIPS 2 VW LEFT 2021-04-25 18:41:00 Nallely Zhao [facility] CONSENT/REFUSAL FOR 2021-04-25 15:43:06 Doctor Unassigned, [facility] [place] [facility] Name Medical Branch CT CERVICAL SPINE WO 2020-06-26 09:35:01 Nandiniia [facility] CONTRAST [facility] CT LUMBAR SPINE WO 2020-06-26 09:35:01 [facility]iniia [facility] [facility] CONTRAST [facility] THORACIC SPINE WO 2020-06-26 09:35:01 Nandiniia [facility] UNILATERAL DUPLEX SCAN 2020-05-24 14:53:40 Charanjit Heck [facility] BY VASCULAR Medical Br anch LAB XR ANKLE 3+ VW LEFT 2020-05-24 13:22:26 Charanjit Heck [facility] HEPATIC FUNCTION PANEL 2020-05-24 13:13:00 Charanjit Heck [facility] ([id number]) (ALB,T.PRO,BILI [facility] T,BU/BC,ALT,AST,ALK PHOS) BASIC METABOLIC PANEL 2020-05-24 13:13:00 Charanjit Heck [facility] (NA, K, CL, CO2, Medical Branch GLUCOSE, BUN, CREATININE, CA) CBC WITH DIFFERENTIAL 2020-05-24 13:13:00 Charanjit Heck [facility] PROTHROMBIN TIME / INR 2020-05-24 13:13:00 Charanjit Heck [facility] ACTIVATED PARTIAL 2020-05-24 13:13:00 Charanjit Heck [facility] NOTICE OF PRIVACY 2020-05-24 11:38:26 Doctor Unassigned, No [facility] PRACTICES Name [facility] CONSENT/REFUSAL FOR 2020-05-24 11:35:52 Doctor Unassigned, No [facility]REATMENT Name [facility] POCT GLUCOSE (AUTOMATED) 2020-03-23 22:32:00 Jamel Flores [facility] POCT GLUCOSE (AUTOMATED) 2020-03-23 18:07:00 Jamel Flores [facility] POCT GLUCOSE (AUTOMATED) 2020-03-23 14:57:00 Jamel Flores [facility] ECHO ROUTINE W/DOPPLER 2020-03-23 13:33:57 Hannah Canodhi [facility] EKG-12 LEAD 2020-03-23 12:56:59 Jamel [facility] MAGNESIUM 2020-03-23 11:15:00 Jerome [facility] TROPONIN I 2020-03-23 11:15:00 Jerome [facility] BASIC METABOLIC PANEL 2020-03-23 11:15:00 Jerome [facility] (NA, K, CL, CO2, Medical Branch GLUCOSE, BUN, CREATININE, CA) PROTHROMBIN TIME / INR 2020-03-23 11:15:00 Tereza Cano [facility] ACTIVATED PARTIAL 2020-03-23 11:15:00 Jerome [facility] EKG-12 LEAD 2020-03-23 07:51:19 Jamel Flores [facility] MAGNESIUM 2020-03-23 05:55:00 Jerome [facility] TROPONIN I 2020-03-23 05:55:00 Jerome [facility] BASIC METABOLIC PANEL 2020-03-23 05:55:00 Jerome [facility] (NA, K, CL, CO2, Medical Branch GLUCOSE, BUN, CREATININE, CA) LIPID PANEL 2020-03-23 05:55:00 Jerome [facility] ([id number])(TOTAL Medical Branch CHOLESTEROL, TRIGLYCERIDES, HDL) PROTHROMBIN TIME / INR 2020-03-23 02:55:[address] [facility], Txjenny [facility] ACTIVATED PARTIAL 2020-03-23 02:55:00 Sallie Eckert [facility] XR CHEST 2 VW 2020-03-23 01:52:37 [facility]-19 2020-03-23 00:50:00 Esteban Singletary [facility] FERRITIN SERUM 2020-03-22 23:36:00 Jerome [facility] TROPONIN I 2020-03-22 23:36:00 Hayder [facility] COMP. METABOLIC PANEL 2020-03-22 23:36:00 Esteban Singletary [facility] ([address] IRON PANEL 2020-03-22 23:36:00 Jerome [facility] CBC WITH DIFFERENTIAL 2020-03-22 23:36:00 Hayder [facility] N-TERMINAL PRO-BNP 2020-03-22 23:36:00 Esteban Singletary [facility] EKG-12 LEAD 2020-03-22 23:08:53 Hayder [facility] EKG-12 LEAD 2020-03-22 23:08:15 Hayder [facility] XR CHEST 1 VW 2020-03-21 20:42:35 Myles Harry [facility] LACTIC ACID WHOLE BLOOD 2020-03-21 20:38:00 Myles Harry [facility] LIPASE 2020-03-21 20:19:00 Myles Harry [facility] TROPONIN I 2020-03-21 20:19:00 Myles Harry [facility] COMP. METABOLIC PANEL 2020-03-21 20:19:00 Myles Harry [facility] ([id number]) [facility] PROTHROMBIN TIME / INR 2020-03-21 20:19:00 Myles Harry [facility] N-TERMINAL PRO-BNP 2020-03-21 20:19:00 Myles Harry [facility] CORONAVIRUS COVID-19 2020-03-21 20:19:00 Myles Harry [facility] EKG-12 LEAD 2020-03-21 20:11:28 Myles Harry [facility] POCT GLUCOSE (AUTOMATED) 2020-03-07 20:56:00 EdconsueloSarah [employer] [facility] POCT GLUCOSE (AUTOMATED) 2020-03-07 15:34:00 EdionricardoSarah [employer] [facility] POCT GLUCOSE (AUTOMATED) 2020-03-07 12:56:00 EdconsueloSarah [employer] [facility] URIC ACID 2020-03-07 10:14:00 Holland Briscoe [facility] TROPONIN I 2020-03-07 10:14:00 [facility] BASIC METABOLIC PANEL 2020-03-07 10:14:00 [facility] (NA, K, CL, CO2, Medical Branch GLUCOSE, BUN, CREATININE, CA) CBC WITH DIFFERENTIAL 2020-03-07 10:14:00 Julio Cesar [facility] N-TERMINAL PRO-BNP 2020-03-07 10:14:00 [facility]OMATED) 2020-03-06 21:16:00 [facility] POCT GLUCOSE (AUTOMATED) 2020-03-06 16:10:00 Edconsuelo [facility] POCT GLUCOSE (AUTOMATED) 2020-03-06 12:38:00 Edconsuelo [facility] TROPONIN I 2020-03-06 08:51:00 [facility] BASIC METABOLIC PANEL 2020-03-06 08:51:00 [facility] (NA, K, CL, CO2, [facility] Branch GLUCOSE, BUN, CREATININE, CA) CBC WITH DIFFERENTIAL 2020-03-06 08:51:00 Edionricardo, [facility] POCT GLUCOSE (AUTOMATED) 2020-03-06 01:16:00 Edconsuelo [facility] TROPONIN I 2020-03-05 23:25:00 [facility] PO[facility] GLUCOSE (AUTOMATED) 2020-03-05 21:14:00 Edionwe [facility] POCT GLUCOSE (AUTOMATED) 2020-03-05 16:39:00 Devinjaimericardo [facility] POCT GLUCOSE (AUTOMATED) 2020-03-05 12:47:00 [facility] TROPONIN I 2020-03-05 09:50:[facility]OLIC PANEL 2020-03-05 09:50:00 [facility] (NA, K, CL, CO2, Medical Branch GLUCOSE, BUN, CREATININE, CA) CBC WITH DIFFERENTIAL 2020-03-05 09:50:00 [facility] 2020-03-05 00:36:54 [facility] 2020-03-05 00:31:03 Renan [facility] CORONAVIRUS COVID-19 2020-03-05 00:03:00 Charanjit Heck [facility] XR CHEST 1 VW 2020-03-04 23:58:59 [facility]anjit [facility] LIPASE 2020-03-04 23:29:00 Umang [facility] TROPONIN I 2020-03-04 23:29[facility] 2020-03-04 23:29:00 Charanjit Heck [facility] ([id number]) (ALB,T.PRO,BILI [facility] T,BU/BC,ALT,AST,ALK PHOS) BASIC METABOLIC PANEL 2020-03-04 23:29:00 Charanjit Heck [facility] (NA, K, CL, CO2, [facility] GLUCOSE, BUN, CREATININE, CA) CBC WITH DIFFERENTIAL 2020-03-04 23:29:00 Charanjit Heck [facility] PROTHROMBIN TIME / INR 2020-03-04 23:29:00 Charanjit Heck [facility] ACTIVATED PARTIAL 2020-03-04 23:29:00 Charanjit Heck [facility] THRMPLAS [facility] N-TERMINAL PRO-BNP 2020-03-04 23:29:00 Charanjit Heck [facility] EKG-12 LEAD 2020-03-04 23:15:[address] [facility] EKG-12 LEAD 2020-03-04 23:10:[address] [facility] EMERGENCY DEPARTMENT 2020-03-04 05:01:00 Doctor Unassigned, No U [facility] DOCUMENTS Name [facility] POCT GLUCOSE (AUTOMATED) 2020-03-02 15:52:00 Lulu Harris [facility] POCT GLUCOSE (AUTOMATED) 2020-03-02 12:39:00 Lulu Harris [facility] MAGNESIUM 2020-03-02 08:57:00 Carolyn [facility] BASIC METABOLIC PANEL 2020-03-02 08:57:00 Carolyn alek [facility] (NA, K, CL, CO2, Medical Branch GLUCOSE, BUN, CREATININE, CA) N-TERMINAL PRO-BNP 2020-03-02 08:57:00 Carolyn alek [facility] POCT GLUCOSE (AUTOMATED) 2020-03-01 20:39:00 Lulu Harris [facility] MAGNESIUM 2020-03-01 08:43:00 Lulu [facility] TROPONIN I 2020-03-01 08:43:00 Carolyn [facility] BASIC METABOLIC PANEL 2020-03-01 08:43:00 Lulu Harris [facility] (NA, K, CL, CO2, Medical Branch GLUCOSE, BUN, CREATININE, CA) CBC WITH DIFFERENTIAL 2020-03-01 08:43:00 Lulu Harris [facility] N-TERMINAL PRO-BNP 2020-03-01 08:43:00 Carolyn alek [facility] VITAMIN B12, LEVEL 2020-03-01 03:49:00 Carolyn alek [facility] FOLATE 2020-03-01 03:49:00 Carolyn [facility] SEDIMENTATION RATE 2020-03-01 03:49:00 Carolyn alek [facility] POCT GLUCOSE (AUTOMATED) 2020-03-01 03:39:00 Lulu Harris [facility] PHOSPHORUS 2020-03-01 02:28:00 Lulu [facility] URIC ACID 2020-03-01 02:28:00 Carolyn [facility] TROPONIN I 2020-03-01 02:28:00 Carolyn [facility] HEPATIC FUNCTION PANEL 2020-03-01 02:28:00 Ivory Leon [facility] ([id number]) (ALB,T.PRO,BILI [facility] T,BU/BC,ALT,AST,ALK PHOS) PROTHROMBIN TIME / INR 2020-03-01 02:28:00 Carolyn alek [facility] N-TERMINAL PRO-BNP 2020-03-01 02:28:00 Lulu Harris [facility] PROCALCITONIN 2020-03-01 02:28:00 Carolyn [facility] EKG-12 LEAD 2020-03-01 01:54:29 Carolyn [facility] EKG-12 LEAD 2020-02-29 23:16:21 [facility] XR CHEST 1 VW COVID 2020-02-29 23:14:25 Bobo Urrutia [facility] EKG-12 LEAD 2020-02-29 23:13:50 [facility] LACTIC ACID WHOLE BLOOD 2020-02-29 22:21:00 Bobo Urrutia [facility] CORONAVIRUS COVID-19 2020-02-29 22:20:00 Bobo Urrutia [facility] CREATINE KINASE 2020-02-29 22:14:00 Carolyn [facility] URIC ACID 2020-02-29 22:14:00 Carolyn [facility] LIPASE 2020-02-29 22:14:00 [facility]o [facility] MAGNESIUM 2020-02-29 22:14:00 Carolyn [facility] TROPONIN I 2020-02-29 22:14:00 [facility]IM[facility] 2020-02-29 22:14:00 Ivory Leon [facility] HORMONE [facility] BASIC METABOLIC PANEL 2020-02-29 22:14:00 Bobo Urrutia [facility] (NA, K, CL, CO2, Medical Branch GLUCOSE, BUN, CREATININE, CA) CBC WITH DIFFERENTIAL 2020-02-29 22:14:00 Bobo Urrutia [facility] GLYCOSYLATED HEMOGLOBIN 2020-02-29 22:14:00 Carolyn Chan [facility] (A1C) [facility] N-TERMINAL PRO-BNP 2020-02-29 22:14:00 Carolyn [facility] EKG-12 LEAD 2020-02-29 21:59:12 Renan [facility] EKG-12 LEAD 2020-02-29 21:48:49 Renan [facility] EMERGENCY DEPARTMENT 2020-02-29 05:01:00 Doctor Unassigned, No U [facility] DOCUMENTS [facility] POCT GLUCOSE (AUTOMATED) 2020-01-17 18:15:00 Julio Cesar [facility] TROPONIN I 2020-01-17 16:31:00 Julio Cesar [facility] ACTIVATED PARTIAL 2020-01-17 16:31:00 Carolyn [facility] POCT GLUCOSE (AUTOMATED) 2020-01-17 11:56:00 Julio Cesar [facility] TROPONIN I 2020-01-17 09:52:00 Julio Cesar [facility] BASIC METABOLIC PANEL 2020-01-17 09:52:00 Julio Cesar [facility] (NA, K, CL, CO2, Medical Branch GLUCOSE, BUN, CREATININE, CA) CBC WITH DIFFERENTIAL 2020-01-17 09:52:00 Julio Cesar [facility] ACTIVATED PARTIAL 2020-01-17 09:52:00 Julio Cesar [facility] POCT GLUCOSE (AUTOMATED) 2020-01-16 23:59:00 [facility]io [facility]-12 LEAD 2020-01-16 22:15:50 [facility] I 2020-01-16 20:04:00 Julio Cesar [facility] ACTIVATED PARTIAL 2020-01-16 20:04:00 Kael [facility] POCT GLUCOSE (AUTOMATED) 2020-01-16 17:05:00 Julio Cesar [facility] POCT GLUCOSE (AUTOMATED) 2020-01-16 13:38:00 Julio Cesar [facility] TROPONIN I 2020-01-16 11:11:00 [facility] LIPID PANEL 2020-01-16 11:11:00 [facility] ([id number])(TOTAL [facility] CHOLESTEROL, TRIGLYCERIDES, HDL) ACTIVATED PARTIAL 2020-01-16 11:11:00 Julio Cesar [facility] CRITICAL CARE 2020-01-16 05:48:[address] [facility] XR CHEST 1 VW 2020-01-16 04:46:[address] [facility] TROPONIN I 2020-01-16 04:38:[address] [facility] HEPATIC FUNCTION PANEL 2020-01-16 04:38:00 Charanjit Heck [facility] ([id number]) (ALB,T.PRO,BILI [facility] T,BU/BC,ALT,AST,ALK PHOS) BASIC METABOLIC PANEL 2020-01-16 04:38:00 Charanjit Heck [facility] (NA, K, CL, CO2, Medical Branch GLUCOSE, BUN, CREATININE, CA) CBC WITH DIFFERENTIAL 2020-01-16 04:38:00 Umang Charanjit [facility] GLYCOSYLATED HEMOGLOBIN 2020-01-16 04:38:00 [facility] ([facility] PROTHROMBIN TIME / INR 2020-01-16 04:38:00 Charanjit Heck [facility] ACTIVATED PARTIAL 2020-01-16 04:38:00 Umang [facility] N-TERMINAL PRO-BNP 2020-01-16 04:38:00 Charanjit Heckit y of [facility] EKG-12 LEAD 2020-01-16 04:37:48 Charanjit Heck [place] [facility] EKG-12 LEAD 2020-01-16 04:35:35 Charanjit Heck [place] [facility] AUTHORIZATION FOR 2019-07-12 05:01:00 Doctor Unassigned, No [facility] RELEASE OF PHI Name Medical Branch Encounters Start End Encounter Admission Attending Care Care Encounter Source Date/Time Date/Time Type Type Clinicians Facility Department ID 2021-09-16 Emergency [facility] [id number] Univers 00:23:34 ity of [facility] 2021-09-13 Emergency [facility] [id number] Univers 11:42:35 ity of [facility] 2021-09-13 Emergency [facility] [id number] Univers 05:40:48 ity of [facility] 2021-05-17 2021-05-17 Letter PcpROBERT [id number] Univers 00:00:00 00:00:00 (Out) Patient ASHLEIGH [id number] it y of [facility] [place].2.[place] A [phone] [facility] 019 Branch 2021-04-25 2021-04-25 Emergency Cece, TRAUMA [id number] Univers 10:43:00 17:38:00 [facility] [id number] i ty of [place] 4.2.7.2.686 [facility] [id number] [facility] 014 Branch 2020-06-26 2020-06-26 Emergency [facility] [id number] 03:50:00 06:45:00 Martha Cortez [id number] [place] 4.2.7.2.686 [place] [id number] 2020-06-26 2020-06-26 Emergency [facility] [id number] Univers 03:50:00 06:45:00 Martha Cortez [id number] [place] [id number] [address] 2020-05-24 2020-05-24 Emergency Heck, [facility] [id number] 06:40:47 10:54:00 Chaarnjit Cortez [id number] [place] 4.2.7.2.686 [place] [id number] [facility] 2020-05-24 2020-05-24 Emergency Umang, [facility] [id number] [facility] 06:40:47 10:54:00 Charanjit [place] 350.1.13.10 i ty [place] [id number] [address] 2020-03-29 2020-03-29 Letter Jamel Flores [id number] 00:00:00 00:00:00 (Out) T [place] 350.1.13.10 [facility] 4.2.7.2.686 [id number] [facility] 2020-03-29 2020-03-29 Letter Jamel Flores [id number] Univers 00:00:00 00:00:00 (Out) T Ashleigh 350.1.13.10 it y of Hospital 4.2.7.2.686 [place] [id number] [address] 2020-03-26 2020-03-26 Transition Sharee George 1.2.840.114 [id number] 00:00:00 00:00:00 of Care Sherrell Trent 350.1.13.10 [place] 4.2.7.2.686 [id number] [facility] 2020-03-26 2020-03-26 Transition ArielSharee grissom 1.2.840.114 [id number] Univers 00:00:00 00:00:00 of Care Sherrell [place] 350.1.13.10 it [place] [id number] [address] 2020-03-22 2020-03-23 Emergency Sallie Eckert 1.2.840. 114 [id number] [facility] 18:02:47 21:55:00 Jamel Flores 350.1.13.10 ity of [facility] 4.2.7.2.686 [place] [id number] [facility] [address] [place] 2020-03-22 2020-03-23 Outpatient X JAMEL FLORES [facility] [id number] Univers 18:02:47 21:55:00 ity of [facility] 2020-03-21 2020-03-[address] [facility] 1.2.840.114 [id number] Univers 15:02:08 17:16:00 Myles Sharon Cortez 350.1.13.10 i ty [place] 4[place] [id number] [address] 2020-03-21 2020-03-21 Emergency [facility] [id number] Univers 15:02:08 17:16:00 [facility] 2020-03-13 2020-03-13 Outpatient Raju_P [facility] [id number] [place] 05:24:00 05:24:00 0428 [facility] 2020-03-08 2020-03-08 Transition Sharee Cool 1.2.840.114 [id number] Univers 00:00:00 00:00:00 of Care Prema Trent 350.1.13.10 i ty of [place] 4[place] [id number] [facility] 403 Branch 2020-03-04 2020-03-07 [facility] Umang Charanjit [facility] 1.2.840.1 [id number] Univers 18:01:05 18:00:00 Encounter Sarah Adorno [place] 350.1.13.10 ity of [place] [id number] [facility] 081 Branch 2020-03-04 2020-03-07 Inpatient X DEVINJAIMERICARDO [facility] ZEFERINO [id number] Univers 18:01:05 18:00:00 SARAH ity [facility] 2020-03-03 2020-03-03 Transition Sharee Silva 1.2.840.114 [id number] Univers 00:00:00 00:00:00 of Care Isatu Trent 350.1.13.10 it y of [place] [id number] [address] 2020-02-29 2020-03-02 [facility] Bobo Urrutia [facility] 1.2.840.11 [id number] Univers 16:53:09 12:18:00 Encounter Kunalannalisa Lulu Cortez 350.1.13.10 ity of [place] 4[place] [id number] [address] 2020-02-29 2020-03-02 Inpatient X STEVEN [facility] ZEFERINO [id number] Univers 16:53:09 12:18:00 LUUL leon [facility] 2020-02-15 2020-02-15 Outpatient R CHAVA [facility] [id number] Univers 11:30:00 11:30:00 ROSEMARY [facility] 2020-02-15 2020-02-15 Telemedici [facility] 1.2.840.114 [id number] Univers 08:13:42 08:43:42 ne Visit Rosemary Cortez 350.1.13.10 it[place] [facility] [phone] Oh dical nal 220 [facility] 2020-01-18 2020-01-18 Transition Sharee Harvey 1.2.840.114 [id number] Univers 00:00:00 00:00:00 of Care Ana M Trent 350.1.13.10 it [place] [id number] [address] 2020-01-15 2020-01-17 [facility] Charanjit Heck [facility] 1.2.840.1 [id number] Univers 22:33:37 16:58:00 Encounter Sarah Adorno 350.1.13.10 it[place] of [place] [id number] [address] 2020-01-15 2020-01-17 Outpatient X JULIO CESAR [facility] ZEFERINO [id number] Univers 22:33:37 16:58:00 SARAH leon [facility] 2019-10-07 2019-10-07 [facility] [id number] 10:48:00 10:48:00 [facility] 2019-10-05 2019-10-05 [facility] [id number] 16:06:00 16:06:00 [facility] 2019-07-27 2019-07-27 Refill TIARA Larsen 1.2.840.114 [id number] Univers 00:00:00 00:00:00 Rosemary Cortez 350.1.13.10 i ty [facility] 4.2.7.2.[place] [id number] Oh dic[address] 2019-07-12 2019-07-12 Outpatient [facility] [id number] 16:24:00 16:24:00 [facility] 2019-07-12 2019-07-12 Orders Doctor JONES 1.2.840.[id number] [place] [address] 00:00:00 00:00:00 Only Unassigned, ASHLEIGH 350.1.13.10 ity of [place] [facility] 4.2.7.2.686 [place] [phone] [address] 2019-07-06 2019-07-06 Outpatient [facility] [id number] 14:00:00 14:00:00 [facility] Results Test Description Test Time Test Comments Results Result Comments Source URINALYSIS 2021-04-25 21:15:48 Test Item Value Reference Range Interpretation Comme nts APPEARANCE (test code = Clear Clear 5924634294) COLOR (test code = 0568892705) Yellow Yellow PH (test code = 3536536521) 4.8-8.0 SP GRAVITY (test code = 1.003-1.030 1840282502) GLU U QUAL (test code = 50 mg/dL Normal A 4025497085) BLOOD (test code = 4606536706) Negative Negative INTERFERENCE FROM ASCORBIC ACID MAY CAUSE FALSE NEGATIVE RESULT KETONES (test code = 1429650025) Negative Negative PROTEIN (test code = 2887-8) Negative Negative UROBILIN (test code = Normal Normal 6779805175) BILIRUBIN (test code = Negative Negative 7395640926) NITRITE (test code = 6628407327) Negative Negative LEUK JESS (test code = Negative Negative 7484719925) RBC/HPF (test code = 2022264417) See_Comment [Automated message] The system which ge nerated this result transmit diamante reference range: 0 - 3 HP F. The reference range was not used to interpret th is result as normal/abnormal . WBC/HPF (test code = 3815489922) See_Comment [Automated message] The system which ge nerated this result transmit diamante reference range: 0 - 5 HP F. The reference range was not used to interpret th is result as normal/abnormal . BACTERIA (test code = Negative Negative 4292740972) SQ EPITH (test code = <1 See_Comment [Auto mated message] The 6256451435) system which ge nerated this result transmit diamante reference range: <=2 HPF. The reference range was not u sed to interpret this result as normal/abnormal . HYAL CAST (test code = See_Comment [Aut omated message] The 0326649713) system which ge nerated this result transmit diamante reference range: <=2 LPF. The reference range was not u sed to interpret this result as normal/abnormal . Lab Interpretation (test code = Abnormal 20535-2) [facility] [id number] 20:30:53 Impression: Postoperative changes. Degenerative changes. No acute bony abnormality identified. End of Report. RL: [id number] Ordering Physician: NALLELY ZHAO. Procedure: XR LUMBAR SPINE 2 VW Comparison: None. History: left sided low back pain for 1 week. denies fall or injury . Findings: Bilateral L4 laminectomy with bilateral marshal and pedicle screw fixationL3-L5 with posterior crossbar L4/5. Epidural stimulator. Severe disc space narrowing T12/L1 with moderate disc space narrowing L1/2and L2/3 with severe disc space narrowing L5/S1. Discectomy with interbody bone grafting L4/5. Minimal grade 1 retrolisthesis of 2 mm L2 on L3. No acute fracture or dislocation identified. Atherosclerotic calcifications. [facility], Radiant Results Inft User -04/25/2021 3:31 PM CDT Ordering Physician: NALLELY ZHAO.Procedure: XR LUMBAR SPINE 2 VWComparison: None.History: left sided low back pain for 1 week. denies fall or injury . Findings:Bilateral L4 laminectomy with bilateral marshal and pedicle screw fixationL3-L5 with posterior crossbar L4/5.Epidural stimulator.Severe disc space narrowing T12/L1 with moderate disc space narrowing L1/2and L2/3 with severe disc space narrowing L5/S1.Discectomy with interbody bone grafting L4/5.Minimal grade 1 retrolisthesis of 2 mm L2 on L3.No acute fracture or dislocation identified.Atherosclerotic calcifications.IMPRESSIONImpression:Postoperative changes.Degenerative changes.No acute bony abnormality identified.End of Report.RL: 3901 [facility] VW [id number] 20:24:52Impression: Postoperative changes. Degenerative changes. No acute bony abnormality identified. If there is persistent clinicalconcern MRI is available. End of Report. RL: 3901 Ordering Physician: NALLELY ZHAO. Procedure: XR HIPS 2 VW LEFT Comparison: None. History: left sided low back pain radiating to left thigh/hip in past a fewdays. . Findings: Partially visualized lumbar spinal fusion and right epidural stimulator. Penile prosthesis. Moderate degenerative calcific enthesopathy of the pelvis. Tiny ossific density adjacent to the acetabulum likely os acetabuli. Moderate pubic symphyseal degenerative arthropathy. No fracture, dislocation, or avascular necrosis identified. Atherosclerotic calcifications bilaterally. [facility], Radiant Results Inft User - 04/25/2021 3:26 PM CDT Ordering Physician: NALLELY ZHAO.Procedure: XR HIPS 2 VW LEFTComparison: None.History: left sided low back pain radiating to left thigh/hip in past a fewdays. . Findings:Partially visualized lumbar spinal fusion and right epidural stimulator.Penile prosthesis.Moderate degenerative calcific enthesopathy of the pelvis.Tiny ossific density adjacent to the acetabulum likely os acetabuli.Moderate pubic symphyseal degenerative arthropathy.No fracture, dislocation, or avascular necrosis identified.Atherosclerotic calcifications bilaterally.IMPRESSIONImpression:Postoperative changes.Degenerative changes.No acute bony abnormality identified. If there is persistent clinicalconcern MRI is available.End of Report.RL: 3901 [facility] Metabolic Panel (NA, K, CL, CO2, GLUCOSE, BUN, CREATININE, CA)2020-05-24 14:15:00 Test Item Value Reference Range Interpretation Comments NA (test code = 139 mmol/L 135-145 1863366284) K (test code = 4.1 mmol/L 3.5-5 6222225683) CL (test code = 104 mmol/L 98-108 3292792615) CO2 TOTAL (test code = 26 mmol/L 23-31 7050164462) AGAP (test code = 2-16 4175412891) BUN (test code = 22 mg/dL 7-23 1315108618) GLUCOSE (test code = 203 mg/dL 70-110 H 0065309101) CREATININE (test code = 1.40 mg/dL 0.6-1.25 H 3529689630) CALCIUM (test code = 9.1 mg/dL 8.6-10.6 0667594649) eGFR Calculation mL/min/1.73m2 (Non-) (test code = 4895517246) eGFR Calculation mL/min/1.73m2 () (test code = 7477881438) ALYSSA (test code = ALYSSA) Association of Glomerular Filtration Rate (GFR) and Staging of Kidney Disease* + --+ --+ ------+| GFR (mL/min/1.73 m2) ?| With Kidney Damage ?| ?Without Kidney Damage+ --------+ --------+ +| ?>90 ?| ?Stage one ?| ? Normal ?+ ---+ ---+ -------+| ?60-89 ?| ?Stage two ?| ? Decreased GFR ? + --+ --+ ------+| ?30-59 ?| ?Stage three ?| ? Stage three ? + --+ --+ ------+| ?15-29 ?| ?Stage four ? | ? Stage four ?+ ---+ ---+ -------+| ?<15 (or dialysis) ? ?| ?Stage five ? | ? Stage five ?+ ---+ ---+ -------+ *Each stage assumes the associated GFR level has been in effect for at least three months. ?Stages 1 to 5, with or without kidney disease, indicate chronic kidney disease. Notes: Determination of stages one and two (with eGFR >59mL/min/1.73 m2) requires estimation of kidney damage for at least three months as defined by structural or functional abnormalities of the kidney, manifested by either:Pathological abnormalities or Markers of kidney damage (including abnormalities in the composition of the blood or urine or abnormalities in imaging tests). Lab Interpretation Abnormal (test code = 91264-1) [facility] (ALB, T.PRO, BILI T, BU/BC, ALT, AST, ALK PHOS)2020-05-24 13:54:00 Test Item Value Reference Range Interpretation Comments TOTAL BILI (test code = 7069880309) 0.9 mg/dL 0.1-1.1 BILI UNCON (test code = 6764495584) 1.0 mg/dL 0.1-1.1 BILI CONJ (test code = 7246897406) 0.0 mg/dL 0-0.3 T PROTEIN (test code = 5101711176) 7.0 g/dL 6.3-8.2 ALBUMIN (test code = 0479496603) 4.2 g/dL 3.5-5 ALK PHOS (test code = 0566125832) 49 U/L 34-122 ALTv (test code = 1742-6) 17 U/L 5-50 AST(SGOT) (test code = 4644236538) 25 U/L 13-40 Lab Interpretation (test code = Normal 09998-1) [facility]aPTT2020-07-09 13:32:00 Test Item Value Reference Range Interpretation Comments APTT Patient (test See_Comment [Automat ed code = 3173-2) message] The system which generated this result transmitted reference range : 23 - 38 Seconds . The reference range was not used to interpr et this result as normal/abnormal . ALYSSA (test code = ALYSSA) The [facility] patient population mean normal value for aPTT is 30 seconds. Lab Interpretation Normal (test code = 14643-1) [facility] SouthProthrombin Time (PT) / [id number] 13:30:00 Test Item Value Reference Range Interpretation Comments PROTIME PATIENT (test See_Comment [Auto mated message] code = 5964-2) The system wh ich generated this result transmitted ref erence range: 12.0 - 1 4.7 Seconds. The re ference range was not u sed to interpret this result as normal/abnor mal. INR (test code = 6301-6) Nor mal INR <1.1; Warfarin Therap eutic range 2.0 to 3. 0 or 2.5 to 3.5, dep ending upon the indica tions. Lab Interpretation (test Normal code = 14647-2) [facility] SouthCBC WITH [id number] 13:27:00 Test Item Value Reference Range Interpretation Comments WBC (test code = See_Comment [Automated 6690-2) message] The sy stem which generated this result transmitted reference range : 4.20 - 10.70 10*3/?L. The reference range was not used to interpret this result as normal/abnormal . RBC (test code = See_Comment L [Automated 789-8) message] The sy stem which generated this result transmitted reference range : 4.26 - 5.52 10*6/?L. The reference range was not used to interpret this result as normal/abnormal . HGB (test code = 12.4 g/dL 12.2-16.4 718-7) HCT (test code = 35.9 % 38.4-49.3 L 4544-3) MCV (test code = 94.7 fL 81.7-95.6 787-2) MCH (test code = 32.7 pg 26.1-32.7 785-6) MCHC (test code = 34.5 g/dL 31.2-35 786-4) RDW-SD (test code = 42.6 fL 38.5-51.6 54844-4) RDW-CV (test code = 12.3 % 12.1-15.4 788-0) PLT (test code = See_Comment [Automated 777-3) message] The sy stem which generated this result transmitted reference range : 150 - 328 10*3/ ?L. The reference r corey was not used to interpret this result as normal/abnormal . MPV (test code = 9.9 fL 9.8-13 29865-7) NRBC/100 WBC (test See_Comment [Automat ed code = 5512487111) message] The system which generated this result transmitted reference range : 0.0 - 10.0 /100 WBCs. The refer ence range was not u sed to interpret th is result as normal/abnormal . NRBC x10^3 (test code <0.01 See_Comment [Auto mated = 0418696912) message] The s ystem which generated this result transmitted reference range : 10*3/?L. The reference range was not used to interpret this result as normal/abnormal . GRAN MAT (NEUT) % 55.1 % (test code = 770-8) IMM GRAN % (test code 0.20 % = 8002595773) LYMPH % (test code = 28.8 % 736-9) MONO % (test code = 11.3 % 5905-5) EOS % (test code = 3.5 % 713-8) BASO % (test code = 1.1 % 706-2) GRAN MAT x10^3(ANC) 3.11 10*3/uL 1.99-6.95 (test code = 5019032774) IMM GRAN x10^3 (test <0.03 0-0.06 code = 6810247929) LYMPH x10^3 (test code 1.63 10*3/uL 1.09-3.23 = 731-0) MONO x10^3 (test code 0.64 10*3/uL 0.36-1.02 = 742-7) EOS x10^3 (test code = 0.20 10*3/uL 0.06-0.53 711-2) BASO x10^3 (test code 0.06 10*3/uL 0.01-0.09 = 704-7) Lab Interpretation Abnormal (test code = 87023-1) [facility] ANKLE 3+ VW [id number] 13:25:58HISTORY: ?Pain. FINDINGS: AP, lateral, oblique views of left ankle obtained with portabletechnique showed no acute fracture or dislocation. No talar dome lesion.Minimal degenerative changes are seen inthe medial tibiotalar joint. Noheel spur. No significant ankle joint effusion or aggressive bone lesionsseen. CONCLUSIONS: No acute fracture or dislocation in left ankle. [facility], Radiant Results Inft User - 05/24/2020 8:27 AM CDTHISTORY: Pain.FINDINGS: AP, lateral, oblique views of left ankle obtainedwith portabletechnique showed no acute fracture or dislocation. No talar dome lesion.Minimal degenerative changes are seen in the medial tibiotalar joint. Noheel spur. No significant ankle joint effusion or aggressive bone lesionsseen.CONCLUSIONS: No acute fracture or dislocation in left ankle.[facility] GLUCOSE (AUTOMATED)2020-03-23 22:34:00 Test Item Value Reference Range Interpretation Comments POCT GLU (test code = 7466145405) 173 mg/dL 70-110 H Lab Interpretation (test code = Abnormal 05208-0) [facility] GLUCOSE (AUTOMATED)2020-03-23 22:34:00 Test Item Value Reference Range Interpretation Comments POCT GLU (test code = 1787074924) 173 mg/dL 70-110 H Lab Interpretation (test code = Abnormal 30508-6) [facility] GLUCOSE (AUTOMATED)2020-03-23 18:12:00 Test Item Value Reference Range Interpretation Comments POCT GLU (test code = 165 mg/dL 70-110 H Notifi ed Provider [id number]) Lab Interpretation (test Abnormal code = 09235-4) [facility] GLUCOSE (AUTOMATED)2020-03-23 18:12:00 Test Item Value Reference Range Interpretation Comments POCT GLU (test code = 165 mg/dL 70-110 H Notifi ed Provider [id number]) Lab Interpretation (test Abnormal code = 75561-0) [facility] GLUCOSE (AUTOMATED)2020-03-23 15:04:00 Test Item Value Reference Range Interpretation Comments POCT GLU (test code = 114 mg/dL 70-110 H Notifi ed Provider [id number]) Lab Interpretation (test Abnormal code = 86855-6) [facility] GLUCOSE (AUTOMATED)2020-03-23 15:04:00 Test Item Value Reference Range Interpretation Comments POCT GLU (test code = 114 mg/dL 70-110 H Notifi ed Provider [id number]) Lab Interpretation (test Abnormal code = 54679-1) [facility]FERRITIN [id number] 13:23:00 Test Item Value Reference Range Interpretation Comments FERRITIN (test code = 139.0 ng/mL 18-464 4448987153) ALYSSA (test code = ALYSSA) Biotin has been reported to cause a negative bias, interpret results relative to patient's use of biotin. Lab Interpretation (test Normal code = 94805-5) [facility] [id number] 13:23:00 Test Item Value Reference Range Interpretation Comments FERRITIN (test code = 139.0 ng/mL 18-464 3308192087) ALYSSA (test code = ALYSSA) Biotin has been reported to cause a negative bias, interpret results relative to patient's use of biotin. Lab Interpretation (test Normal code = 60434-0) [facility] [id number] 12:53:00 Test Item Value Reference Range Interpretation Comments IRON (test code = 9453803928) 87 ug/dL 50-160 TIBC (test code = 4979084376) 385 ug/dL 250-410 % FE SAT (test code = 0884691117) 23 % 20-50 Lab Interpretation (test code = Normal 62671-0) [facility] [id number] 12:53:00 Test Item Value Reference Range Interpretation Comments IRON (test code = 1237769086) 87 ug/dL 50-160 TIBC (test code = 3917441451) 385 ug/dL 250-410 % FE SAT (test code = 4128984306) 23 % 20-50 Lab Interpretation (test code = Normal 04677-2[facility] Test Item Value Reference Range Interpretation Comments APTT Patient (test code See_Comment HH [Au tomated message] = 3173-2) The system [employer] generated this result transmitted ref erence range: 26 - 36 Seconds. The reference range was not used to int erpret this result as normal/abnormal . Lab Interpretation (test Abnormal code = 32922-3) [facility]:07[facility]00 Test Item Value Reference Range Interpretation Comments APTT Patient (test code See_Comment HH [Au tomated message] = 3173-2) The system [employer] generated this result transmitted ref erence range: 26 - 36 Seconds. The reference range was not used to int erpret this result as normal/abnormal . Lab Interpretation (test Abnormal code = 29829-4) [facility] [id number] 11:57:00 Test Item Value Reference Range Interpretation Comments TROPONIN I (test 0.046 ng/mL See_Comment H [Automated code = 2124898490) message] The system which generated this result transmitted reference range : <=0.034. The reference range was not used to interpret this result as normal/abnormal . ALYSSA (test code = Equal or Less than ALYSSA) 0.034 ng/ml---Normal ?Note: Cardiac troponin begins to rise 3-4 hours after the onset of ischemia. Repeat in 4-6 hours if the sample was drawn within 3-4 hours of the onset of the symptom and found normal. Between 0.035 and 0.120 ng/mL--- Borderline. Questionable myocardial injury or necrosis ? ?Note: Serial measurement may be necessary to confirm or exclude the diagnosis of myocardial injury or necrosis; Clinical correlation (symptoms, EKGs, imaging studies, and others) required; Repeat in 4-6 hours if clinically indicated. ? Equal or Higher than 0.121 ng/mL---Abnormal. Myocardial Injury or Necrosis Likely ? Biotin has been reported to cause a negative bias, interpret results relative to patient's use of biotin. ? Lab Interpretation Abnormal (test code = 71045-9) [facility] [id number] 11:57:00 Test Item Value Reference Range Interpretation Comments TROPONIN I (test 0.046 ng/mL See_Comment H [Automated code = 0694103888) message] The system which generated this result transmitted reference range : <=0.034. The reference range was not used to interpret this result as normal/abnormal . ALYSSA (test code = Equal or Less than ALYSSA) 0.034 ng/ml---Normal ?Note: Cardiac troponin begins to rise 3-4 hours after the onset of ischemia. Repeat in 4-6 hours if the sample was drawn within 3-4 hours of the onset of the symptom and found normal. Between 0.035 and 0.120 ng/mL--- Borderline. Questionable myocardial injury or necrosis ? ?Note: Serial measurement may be necessary to confirm or exclude the diagnosis of myocardial injury or necrosis; Clinical correlation (symptoms, EKGs, imaging studies, and others) required; Repeat in 4-6 hours if clinically indicated. ? Equal or Higher than 0.121 ng/mL---Abnormal. Myocardial Injury or Necrosis Likely ? Biotin has been reported to cause a negative bias, interpret results relative to patient's use of biotin. ? Lab Interpretation Abnormal (test code = 33609-3) [facility] (NA, K, CL, CO2, GLUCOSE, BUN, CREATININE, CA)2020-03-23 11:52:00 Test Item Value Reference Range Interpretation Comments NA (test code = 137 mmol/L 135-145 5707346959) K (test code = 4.1 mmol/L 3.5-5 0896274984) CL (test code = 102 mmol/L 98-108 3960920765) CO2 TOTAL (test code = 26 mmol/L 23-31 6563150592) AGAP (test code = 2-16 2847055534) BUN (test code = 18 mg/dL 7-23 8024844007) GLUCOSE (test code = 119 mg/dL 70-110 H 4663442043) CREATININE (test code = 1.14 mg/dL 0.6-1.25 7857919213) CALCIUM (test code = 9.1 mg/dL 8.6-10.6 0267780266) eGFR Calculation mL/min/1.73m2 (Non-) (test code = 2473017549) eGFR Calculation mL/min/1.73m2 () (test code = 0202650379) ALYSSA (test code = ALYSSA) Association of Glomerular Filtration Rate (GFR) and Staging of Kidney Disease* + --+ --+ ------+| GFR (mL/min/1.73 m2) ?| With Kidney Damage ?| ?Without Kidney Damage+ --------+ --------+ +| ?>90 ?| ?Stage one ?| ? Normal ?+ ---+ ---+ -------+| ?60-89 ?| ?Stage two ?| ? Decreased GFR ? + --+ --+ ------+| ?30-59 ?| ?Stage three ?| ? Stage three ? + --+ --+ ------+| ?15-29 ?| ?Stage four ? | ? Stage four ?+ ---+ ---+ -------+| ?<15 (or dialysis) ? ?| ?Stage five ? | ? Stage five ?+ ---+ ---+ -------+ *Each stage assumes the associated GFR level has been in effect for at least three months. ?Stages 1 to 5, with or without kidney disease, indicate chronic kidney disease. Notes: Determination of stages one and two (with eGFR >59mL/min/1.73 m2) requires estimation of kidney damage for at least three months as defined by structural or functional abnormalities of the kidney, manifested by either:Pathological abnormalities or Markers of kidney damage (including abnormalities in the composition of the blood or urine or abnormalities in imaging tests). Lab Interpretation Abnormal (test code = 21259-9) [facility]UM2020-[facility]-08 11:52:00 Test Item Value Reference Range Interpretation Comments MAGNESIUM (test code = 7918418839) 2.2 mg/dL 1.7-2.4 Lab Interpretation (test code = Normal 44612-0) [facility] (NA, K, CL, CO2, GLUCOSE, BUN, CREATININE, CA)2020-03-23 11:52:00 Test Item Value Reference Range Interpretation Comments NA (test code = 137 mmol/L 135-145 9672422738) K (test code = 4.1 mmol/L 3.5-5 9326647067) CL (test code = 102 mmol/L 98-108 3739879655) CO2 TOTAL (test code = 26 mmol/L 23-31 2573343313) AGAP (test code = 2-16 9087818505) BUN (test code = 18 mg/dL 7-23 8673609897) GLUCOSE (test code = 119 mg/dL 70-110 H 4163649238) CREATININE (test code = 1.14 mg/dL 0.6-1.25 6600870129) CALCIUM (test code = 9.1 mg/dL 8.6-10.6 8697901873) eGFR Calculation mL/min/1.73m2 (Non-) (test code = 4868386879) eGFR Calculation mL/min/1.73m2 () (test code = 3391483737) ALYSSA (test code = ALYSSA) Association of Glomerular Filtration Rate (GFR) and Staging of Kidney Disease* + --+ --+ ------+| GFR (mL/min/1.73 m2) ?| With Kidney Damage ?| ?Without Kidney Damage+ --------+ --------+ +| ?>90 ?| ?Stage one ?| ? Normal ?+ ---+ ---+ -------+| ?60-89 ?| ?Stage two ?| ? Decreased GFR ? + --+ --+ ------+| ?30-59 ?| ?Stage three ?| ? Stage three ? + --+ --+ ------+| ?15-29 ?| ?Stage four ? | ? Stage four ?+ ---+ ---+ -------+| ?<15 (or dialysis) ? ?| ?Stage five ? | ? Stage five ?+ ---+ ---+ -------+ *Each stage assumes the associated GFR level has been in effect for at least three months. ?Stages 1 to 5, with or without kidney disease, indicate chronic kidney disease. Notes: Determination of stages one and two (with eGFR >59mL/min/1.73 m2) requires estimation of kidney damage for at least three months as defined by structural or functional abnormalities of the kidney, manifested by either:Pathological abnormalities or Markers of kidney damage (including abnormalities in the composition of the blood or urine or abnormalities in imaging tests). Lab Interpretation Abnormal (test code = 77858-9) [facility] Test Item Value Reference Range Interpretation Comments MAGNESIUM (test code = 2294270616) 2.2 mg/dL 1.7-2.4 Lab Interpretation (test code = Normal 75887-5) [facility]throm[facility] Time (PT) / [id number] 11:36:00 Test Item Value Reference Range Interpretation Comments PROTIME PATIENT (test See_Comment [Auto mated message] code = 5964-2) The system [employer] generated this result transmitted ref erence range: 10.1 - 1 2.6 Seconds. The re ference range was not u sed to interpret this result as normal/abnor mal. INR (test code = 6301-6) Nor mal INR <1.1; Warfarin Therap eutic range 2.0 to 3. 0 or 2.5 to 3.5, dep ending upon the indica tions. Lab Interpretation (test Normal code = 49921-3) [facility] (PT) / [id number] 11:36:00 Test Item Value Reference Range Interpretation Comments PROTIME PATIENT (test See_Comment [Auto mated message] code = 5964-2) The system [employer] generated this result transmitted ref erence range: 10.1 - 1 2.6 Seconds. The re ference range was not u sed to interpret this result as normal/abnor mal. INR (test code = 6301-6) Nor mal INR <1.1; Warfarin Therap eutic range 2.0 to 3. 0 or 2.5 to 3.5, dep ending upon the indica tions. Lab Interpretation (test Normal code = 08071-2) [facility]IN [id number] 06:38:00 Test Item Value Reference Range Interpretation Comments TROPONIN I (test 0.045 ng/mL See_Comment H [Automated code = 8726585991) message] The system which generated this result transmitted reference range : <=0.034. The reference range was not used to interpret this result as normal/abnormal . ALYSSA (test code = Equal or Less than ALYSSA) 0.034 ng/ml---Normal ?Note: Cardiac troponin begins to rise 3-4 hours after the onset of ischemia. Repeat in 4-6 hours if the sample was drawn within 3-4 hours of the onset of the symptom and found normal. Between 0.035 and 0.120 ng/mL--- Borderline. Questionable myocardial injury or necrosis ? ?Note: Serial measurement may be necessary to confirm or exclude the diagnosis of myocardial injury or necrosis; Clinical correlation (symptoms, EKGs, imaging studies, and others) required; Repeat in 4-6 hours if clinically indicated. ? Equal or Higher than 0.121 ng/mL---Abnormal. Myocardial Injury or Necrosis Likely ? Biotin has been reported to cause a negative bias, interpret results relative to patient's use of biotin. ? Lab Interpretation Abnormal (test code = 18789-7) [facility]END[facility] [id number] 06:38:00 Test Item Value Reference Range Interpretation Comments TROPONIN I (test 0.045 ng/mL See_Comment H [Automated code = 7438043751) message] The system which generated this result transmitted reference range : <=0.034. The reference range was not used to interpret this result as normal/abnormal . ALYSSA (test code = Equal or Less than ALYSSA) 0.034 ng/ml---Normal ?Note: Cardiac troponin begins to rise 3-4 hours after the onset of ischemia. Repeat in 4-6 hours if the sample was drawn within 3-4 hours of the onset of the symptom and found normal. Between 0.035 and 0.120 ng/mL--- Borderline. Questionable myocardial injury or necrosis ? ?Note: Serial measurement may be necessary to confirm or exclude the diagnosis of myocardial injury or necrosis; Clinical correlation (symptoms, EKGs, imaging studies, and others) required; Repeat in 4-6 hours if clinically indicated. ? Equal or Higher than 0.121 ng/mL---Abnormal. Myocardial Injury or Necrosis Likely ? Biotin has been reported to cause a negative bias, interpret results relative to patient's use of biotin. ? Lab Interpretation Abnormal (test code = 66177-4) [facility] (NA, K, CL, CO2, GLUCOSE, BUN, CREATININE, CA)2020-03-23 06:29:00 Test Item Value Reference Range Interpretation Comments NA (test code = 137 mmol/L 135-145 6339389252) K (test code = 3.6 mmol/L 3.5-5 1840601433) CL (test code = 101 mmol/L 98-108 3584417355) CO2 TOTAL (test code = 27 mmol/L 23-31 8350323349) AGAP (test code = 2-16 5656056895) BUN (test code = 19 mg/dL 7-23 9369733527) GLUCOSE (test code = 153 mg/dL 70-110 H 3308240626) CREATININE (test code = 1.22 mg/dL 0.6-1.25 8676579848) CALCIUM (test code = 8.9 mg/dL 8.6-10.6 1774654782) eGFR Calculation mL/min/1.73m2 (Non-) (test code = 7960550828) eGFR Calculation mL/min/1.73m2 () (test code = 6029123198) ALYSSA (test code = ALYSSA) Association of Glomerular Filtration Rate (GFR) and Staging of Kidney Disease* + --+ --+ ------+| GFR (mL/min/1.73 m2) ?| With Kidney Damage ?| ?Without Kidney Damage+ --------+ --------+ +| ?>90 ?| ?Stage one ?| ? Normal ?+ ---+ ---+ -------+| ?60-89 ?| ?Stage two ?| ? Decreased GFR ? + --+ --+ ------+| ?30-59 ?| ?Stage three ?| ? Stage three ? + --+ --+ ------+| ?15-29 ?| ?Stage four ? | ? Stage four ?+ ---+ ---+ -------+| ?<15 (or dialysis) ? ?| ?Stage five ? | ? Stage five ?+ ---+ ---+ -------+ *Each stage assumes the associated GFR level has been in effect for at least three months. ?Stages 1 to 5, with or without kidney disease, indicate chronic kidney disease. Notes: Determination of stages one and two (with eGFR >59mL/min/1.73 m2) requires estimation of kidney damage for at least three months as defined by structural or functional abnormalities of the kidney, manifested by either:Pathological abnormalities or Markers of kidney damage (including abnormalities in the composition of the blood or urine or abnormalities in imaging tests). Lab Interpretation Abnormal (test code = 60956-1) [facility]00 Test Item Value Reference Range Interpretation Comments MAGNESIUM (test code = 9108273428) 1.7 mg/dL 1.7-2.4 Lab Interpretation (test code = Normal 69632-4) [facility] (23141)(TOTAL CHOLESTEROL, TRIGLYCERIDES, HDL)2020-03-23 06:29:00 Test Item Value Reference Range Interpretation Comments CHOL (test code = 106 mg/dL 120-200 L 7164018236) HDL (test code = 46 mg/dL >40 3720904303) HDLC RATIO (test code = See_Comment [Au tomated message] 7168973241) The system [employer] generated this result transmit diamante reference range : <=5.0. The refe rence range was not u sed to interpret th is result as normal/abnormal . TRIG (test code = 74 mg/dL 30-170 9632309779) LDL CHOL (test code = 45 mg/dL See_Comment [Auto mated message] 25898-6) The system [employer] generated this result transmit diamante reference range : <=160. The refe rence range was not u sed to interpret th is result as normal/abnormal . VLDL (test code = 15 mg/dL 5-60 4088339797) Lab Interpretation (test Abnormal code = 47148-0) [facility] (NA, K, CL, CO2, GLUCOSE, BUN, CREATININE, CA)2020-03-23 06:29:00 Test Item Value Reference Range Interpretation Comments NA (test code = 137 mmol/L 135-145 7960828629) K (test code = 3.6 mmol/L 3.5-5 6065935589) CL (test code = 101 mmol/L 98-108 9820470152) CO2 TOTAL (test code = 27 mmol/L 23-31 0734357485) AGAP (test code = 2-16 8533518917) BUN (test code = 19 mg/dL 7-23 3768432466) GLUCOSE (test code = 153 mg/dL 70-110 H 9681613508) CREATININE (test code = 1.22 mg/dL 0.6-1.25 3358470565) CALCIUM (test code = 8.9 mg/dL 8.6-10.6 8095325190) eGFR Calculation mL/min/1.73m2 (Non-) (test code = 7054340835) eGFR Calculation mL/min/1.73m2 () (test code = 1252545987) ALYSSA (test code = ALYSSA) Association of Glomerular Filtration Rate (GFR) and Staging of Kidney Disease* + --+ --+ ------+| GFR (mL/min/1.73 m2) ?| With Kidney Damage ?| ?Without Kidney Damage+ --------+ --------+ +| ?>90 ?| ?Stage one ?| ? Normal ?+ ---+ ---+ -------+| ?60-89 ?| ?Stage two ?| ? Decreased GFR ? + --+ --+ ------+| ?30-59 ?| ?Stage three ?| ? Stage three ? + --+ --+ ------+| ?15-29 ?| ?Stage four ? | ? Stage four ?+ ---+ ---+ -------+| ?<15 (or dialysis) ? ?| ?Stage five ? | ? Stage five ?+ ---+ ---+ -------+ *Each stage assumes the associated GFR level has been in effect for at least three months. ?Stages 1 to 5, with or without kidney disease, indicate chronic kidney disease. Notes: Determination of stages one and two (with eGFR >59mL/min/1.73 m2) requires estimation of kidney damage for at least three months as defined by structural or functional abnormalities of the kidney, manifested by either:Pathological abnormalities or Markers of kidney damage (including abnormalities in the composition of the blood or urine or abnormalities in imaging tests). Lab Interpretation Abnormal (test code = 09293-1) [facility] Test Item Value Reference Range Interpretation Comments MAGNESIUM (test code = 7427759744) 1.7 mg/dL 1.7-2.4 Lab Interpretation (test code = Normal 70288-1) [facility] (50982)(TOTAL CHOLESTEROL, TRIGLYCERIDES, HDL)2020-03-23 06:29:00 Test Item Value Reference Range Interpretation Comments CHOL (test code = 106 mg/dL 120-200 L 1822290031) HDL (test code = 46 mg/dL >40 7010279707) HDLC RATIO (test code = See_Comment [Au tomated message] 3842017981) The system [employer] generated this result transmit diamante reference range : <=5.0. The refe rence range was not u sed to interpret th is result as normal/abnormal . TRIG (test code = 74 mg/dL 30-170 2934401616) LDL CHOL (test code = 45 mg/dL See_Comment [Auto mated message] 08426-9) The system [employer] generated this result transmit diamante reference range : <=160. The refe rence range was not u sed to interpret th is result as normal/abnormal . VLDL (test code = 15 mg/dL 5-60 2681104089) Lab Interpretation (test Abnormal code = 37491-0) [facility]2020-[facility]-08 03:18:00 Test Item Value Reference Range Interpretation Comments APTT Patient (test code = See_Comment [ Automated message] 3173-2) The system [employer] generated this result transmitted ref erence range: 26 - 36 Seconds. The re ference range was not u sed to interpret this result as normal/abnor mal. Lab Interpretation (test Normal code = 86107-5) [facility]2020-[facility] 03:18:00 Test Item Value Reference Range Interpretation Comments APTT Patient (test code = See_Comment [ Automated message] 3173-2) The system [employer] generated this result transmitted ref erence range: 26 - 36 Seconds. The re ference range was not u sed to interpret this result as normal/abnor mal. Lab Interpretation (test Normal code = 40413-7) [facility]HROM[facility] / [id number] 03:07:00 Test Item Value Reference Range Interpretation Comments PROTIME PATIENT (test See_Comment [Auto mated message] code = 5964-2) The system [employer] generated this result transmitted ref erence range: 10.1 - 1 2.6 Seconds. The re ference range was not u sed to interpret this result as normal/abnor mal. INR (test code = 6301-6) Nor mal INR <1.1; Warfarin Therap eutic range 2.0 to 3. 0 or 2.5 to 3.5, dep ending upon the indica tions. Lab Interpretation (test Normal code = 12232-6) [facility]PROTHROM[facility] / [id number] 03:07:00 Test Item Value Reference Range Interpretation Comments PROTIME PATIENT (test See_Comment [Auto mated message] code = 5964-2) The system [employer] generated this result transmitted ref erence range: 10.1 - 1 2.6 Seconds. The re ference range was not u sed to interpret this result as normal/abnor mal. INR (test code = 6301-6) Nor mal INR <1.1; Warfarin Therap eutic range 2.0 to 3. 0 or 2.5 to 3.5, dep ending upon the indica tions. Lab Interpretation (test Normal code = 37041-7) [facility] CHEST 2 [id number] 02:23:32 No acute cardiopulmonary process. Preliminary Report Dictated by Resident: Dirk Butler MD., have reviewed this study and agree with the abovereport.EXAM: XR CHEST 2 VW HISTORY: chest pain COMPARISON: Chest radiograph 03/21/2020 FINDINGS: Neurostimulator leads are extending to the lower thoracic spine. The lungs are clear. No pleural effusion or pneumothorax is identified. The heart is mildly enlarged. Coarse calcification outlines the aorticarch. Severe coronary arterial calcifications or coronary stent is seen. Noacute bony abnormalities are noted. [facility], Radiant Results Inft User - 03/22/2020 9:24 PM CDTEXAM: XR CHEST 2 VWHISTORY: chest pain COMPARISON: Chest radiograph 03/21/2020FINDINGS:Neurostimulator leads are extending to the lower thoracic spine. The lungs are clear. No pleural effusion or pneumothorax is identified.The heart is mildly enlarged. Coarse calcification outlines the aorticarch. Severe coronary arterial calcifications or coronary stent is seen. Noacute bonyabnormalities are noted.IMPRESSIONNo acute cardiopulmonary process.Preliminary Report Dictated by Resident: Dirk Braun MD., have reviewed this study and agree with the abovereport.[facility] 2 [id number] 02:23:32 No acute cardiopulmonary process. Preliminary Report Dictated by Resident: Dirk Butler MD., have reviewed this study and agree with the abovereport.EXAM: XR CHEST 2 VW HISTORY: chest pain COMPARISON: Chest radiograph 03/21/2020 FINDINGS: Neurostimulator leads are extending to the lower thoracic spine. The lungs are clear. No pleural effusion or pneumothorax is identified. The heart is mildly enlarged. Coarse calcification outlines the aorticarch. Severe coronary arterial calcifications or coronary stent is seen. Noacute bony abnormalities are noted. [facility], Radiant Results Inft User - 03/22/2020 9:24 PM CDTEXAM: XR CHEST 2 VWHISTORY: chest pain COMPARISON: Chest radiograph 03/21/20 20FINDINGS:Neurostimulator leads are extending to the lower thoracic spine. The lungs are clear. No pleural effusion or pneumothorax is identified.The heart is mildly enlarged. Coarse calcification outlines the aorticarch. Severe coronary arterial calcifications or coronary stent is seen. Noacute bonyabnormalities are noted.IMPRESSIONNo acute cardiopulmonary process.Preliminary Report Dictated by Resident: Dirk Braun MD., have reviewed this study and agree with the abovereport.[facility] COVID-19 [id number] 01:23:00 Test Item Value Reference Range Interpretation Comments SARS-CoV-2 (test code = Not Detected Not Detected 75753-9) ALYSSA (test code = ALYSSA) ID NOW COVID-19 Assay is an isothermal nucleic acid amplification test intended for the qualitative detection of nucleic acid from SARS-CoV-2 viral RNA in nasopharyngeal ([employer]) specimens. It is used under Emergency Use Authorization (EUA) by FDA. The limit of detection (LOD) of the assay is 125 Genome Equivalents/mL. A positive result is indicative of the presence of SARS-CoV-2 RNA. ?Clinical correlation with patient history and other diagnostic information is necessary to determine patient infection status. A negative (Not Detected) result does not preclude SARS-CoV-2 infection. Clinical correlation with patient history and other diagnostic information should be used in patient management decisions. Invalid: Please collect a new specimen for repeat patient testing if clinically indicated. Lab Interpretation Normal (test code = 75649-0) [facility]-19 [id number] 01:23:00 Test Item Value Reference Range Interpretation Comments SARS-CoV-2 (test code = Not Detected Not Detected 84124-5) ALYSSA (test code = ALYSSA) ID NOW COVID-19 Assay is an isothermal nucleic acid amplification test intended for the qualitative detection of nucleic acid from SARS-CoV-2 viral RNA in nasopharyngeal ([employer]) specimens. It is used under Emergency Use Authorization (EUA) by FDA. The limit of detection (LOD) of the assay is 125 Genome Equivalents/mL. A positive result is indicative of the presence of SARS-CoV-2 RNA. ?Clinical correlation with patient history and other diagnostic information is necessary to determine patient infection status. A negative (Not Detected) result does not preclude SARS-CoV-2 infection. Clinical correlation with patient history and other diagnostic information should be used in patient management decisions. Invalid: Please collect a new specimen for repeat patient testing if clinically indicated. Lab Interpretation Normal (test code = 23508-3) [facility]MINAL [id number] 00:12:00 Test Item Value Reference Range Interpretation Comments NT-proBNP (test code 585 pg/mL See_Comment H [Autom ated = 3979302068) message] The system which generated this result transmitted reference range : <=450. The reference range was not used to interpret this result as normal/abnormal . ALYSSA (test code = ALYSSA) Biotin has been reported to cause a negative bias, interpret results relative to patient's use of biotin. Lab Interpretation Abnormal (test code = 62645-8) [facility]TROPONIN [id number] 00:12:00 Test Item Value Reference Range Interpretation Comments TROPONIN I (test 0.030 ng/mL See_Comment [Automated code = 6459657184) message] The system which generated this result transmitted reference range : <=0.034. The reference range was not used to interpret this result as normal/abnormal . ALYSSA (test code = Equal or Less than ALYSSA) 0.034 ng/ml---Normal ?Note: Cardiac troponin begins to rise 3-4 hours after the onset of ischemia. Repeat in 4-6 hours if the sample was drawn within 3-4 hours of the onset of the symptom and found normal. Between 0.035 and 0.120 ng/mL--- Borderline. Questionable myocardial injury or necrosis ? ?Note: Serial measurement may be necessary to confirm or exclude the diagnosis of myocardial injury or necrosis; Clinical correlation (symptoms, EKGs, imaging studies, and others) required; Repeat in 4-6 hours if clinically indicated. ? Equal or Higher than 0.121 ng/mL---Abnormal. Myocardial Injury or Necrosis Likely ? Biotin has been reported to cause a negative bias, interpret results relative to patient's use of biotin. ? Lab Interpretation Normal (test code = 12038-2) [facility] [id number] 00:12:00 Test Item Value Reference Range Interpretation Comments NT-proBNP (test code 585 pg/mL See_Comment H [Autom ated = 3089418724) message] The system which generated this result transmitted reference range : <=450. The reference range was not used to interpret this result as normal/abnormal . ALYSSA (test code = ALYSSA) Biotin has been reported to cause a negative bias, interpret results relative to patient's use of biotin. Lab Interpretation Abnormal (test code = 09845-8) [facility] [id number] 00:12:00 Test Item Value Reference Range Interpretation Comments TROPONIN I (test 0.030 ng/mL See_Comment [Automated code = 9972443506) message] The system which generated this result transmitted reference range : <=0.034. The reference range was not used to interpret this result as normal/abnormal . ALYSSA (test code = Equal or Less than ALYSSA) 0.034 ng/ml---Normal ?Note: Cardiac troponin begins to rise 3-4 hours after the onset of ischemia. Repeat in 4-6 hours if the sample was drawn within 3-4 hours of the onset of the symptom and found normal. Between 0.035 and 0.120 ng/mL--- Borderline. Questionable myocardial injury or necrosis ? ?Note: Serial measurement may be necessary to confirm or exclude the diagnosis of myocardial injury or necrosis; Clinical correlation (symptoms, EKGs, imaging studies, and others) required; Repeat in 4-6 hours if clinically indicated. ? Equal or Higher than 0.121 ng/mL---Abnormal. Myocardial Injury or Necrosis Likely ? Biotin has been reported to cause a negative bias, interpret results relative to patient's use of biotin. ? Lab Interpretation Normal (test code = 90174-9) [facility]. METABOLIC PANEL (25782)2020-03-23 00:03:00 Test Item Value Reference Range Interpretation Comments NA (test code = 138 mmol/L 135-145 7864759471) K (test code = 4.1 mmol/L 3.5-5 3167594044) CL (test code = 103 mmol/L 98-108 7982026448) CO2 TOTAL (test code = 26 mmol/L 23-31 7001997330) AGAP (test code = 2-16 1809143272) BUN (test code = 18 mg/dL 7-23 0935262290) GLUCOSE (test code = 157 mg/dL 70-110 H 9938154251) CREATININE (test code = 1.19 mg/dL 0.6-1.25 6074172595) TOTAL BILI (test code = 1.1 mg/dL 0.1-1.5 7552068499) CALCIUM (test code = 9.2 mg/dL 8.6-10.6 5237021945) T PROTEIN (test code = 6.8 g/dL 6.3-8.2 4920744835) ALBUMIN (test code = 4.0 g/dL 3.5-5 9492101694) ALK PHOS (test code = 51 U/L 34-122 4336282089) ALTv (test code = 16 U/L 5-50 1742-6) AST(SGOT) (test code = 23 U/L 13-40 9796540858) eGFR Calculation mL/min/1.73m2 (Non-) (test code = 8362370153) eGFR Calculation mL/min/1.73m2 () (test code = 1352220746) ALYSSA (test code = ALYSSA) Association of Glomerular Filtration Rate (GFR) and Staging of Kidney Disease* + --+ --+ ------+| GFR (mL/min/1.73 m2) ?| With Kidney Damage ?| ?Without Kidney Damage+ --------+ --------+ +| ?>90 ?| ?Stage one ?| ? Normal ?+ ---+ ---+ -------+| ?60-89 ?| ?Stage two ?| ? Decreased GFR ? + --+ --+ ------+| ?30-59 ?| ?Stage three ?| ? Stage three ? + --+ --+ ------+| ?15-29 ?| ?Stage four ? | ? Stage four ?+ ---+ ---+ -------+| ?<15 (or dialysis) ? ?| ?Stage five ? | ? Stage five ?+ ---+ ---+ -------+ *Each stage assumes the associated GFR level has been in effect for at least three months. ?Stages 1 to 5, with or without kidney disease, indicate chronic kidney disease. Notes: Determination of stages one and two (with eGFR >59mL/min/1.73 m2) requires estimation of kidney damage for at least three months as defined by structural or functional abnormalities of the kidney, manifested by either:Pathological abnormalities or Markers of kidney damage (including abnormalities in the composition of the blood or urine or abnormalities in imaging tests). Lab Interpretation Abnormal (test code = 30924-4) [facility]. METABOLIC PANEL (67809)2020-03-23 00:03:00 Test Item Value Reference Range Interpretation Comments NA (test code = 138 mmol/L 135-145 1697245095) K (test code = 4.1 mmol/L 3.5-5 1066150458) CL (test code = 103 mmol/L 98-108 9523830736) CO2 TOTAL (test code = 26 mmol/L 23-31 7621716394) AGAP (test code = 2-16 6433317667) BUN (test code = 18 mg/dL 7-23 3958765307) GLUCOSE (test code = 157 mg/dL 70-110 H 6739753493) CREATININE (test code = 1.19 mg/dL 0.6-1.25 2574033128) TOTAL BILI (test code = 1.1 mg/dL 0.1-1.9 3717782108) CALCIUM (test code = 9.2 mg/dL 8.6-10.6 6965091018) T PROTEIN (test code = 6.8 g/dL 6.3-8.2 0319224886) ALBUMIN (test code = 4.0 g/dL 3.5-5 9511867425) ALK PHOS (test code = 51 U/L 34-122 7153614191) ALTv (test code = 16 U/L 5-50 2-6) AST(SGOT) (test code = 23 U/L 13-40 7468570474) eGFR Calculation mL/min/1.73m2 (Non-) (test code = 1010244108) eGFR Calculation mL/min/1.73m2 () (test code = 5988057824) ALYSSA (test code = ALYSSA) Association of Glomerular Filtration Rate (GFR) and Staging of Kidney Disease* + --+ --+ ------+| GFR (mL/min/1.73 m2) ?| With Kidney Damage ?| ?Without Kidney Damage+ --------+ --------+ +| ?>90 ?| ?Stage one ?| ? Normal ?+ ---+ ---+ -------+| ?60-89 ?| ?Stage two ?| ? Decreased GFR ? + --+ --+ ------+| ?30-59 ?| ?Stage three ?| ? Stage three ? + --+ --+ ------+| ?15-29 ?| ?Stage four ? | ? Stage four ?+ ---+ ---+ -------+| ?<15 (or dialysis) ? ?| ?Stage five ? | ? Stage five ?+ ---+ ---+ -------+ *Each stage assumes the associated GFR level has been in effect for at least three months. ?Stages 1 to 5, with or without kidney disease, indicate chronic kidney disease. Notes: Determination of stages one and two (with eGFR >59mL/min/1.73 m2) requires estimation of kidney damage for at least three months as defined by structural or functional abnormalities of the kidney, manifested by either:Pathological abnormalities or Markers of kidney damage (including abnormalities in the composition of the blood or urine or abnormalities in imaging tests). Lab Interpretation Abnormal (test code = 81259-6) [facility] WITH [id number] 23:57:00 Test Item Value Reference Range Interpretation Comments WBC (test code = See_Comment [Automated 6690-2) message] The sy stem which generated this result transmitted reference range : 4.20 - 10.70 10*3/?L. The reference range was not used to interpret this result as normal/abnormal . RBC (test code = See_Comment L [Automated 789-8) message] The sy stem which generated this result transmitted reference range : 4.26 - 5.52 10*6/?L. The reference range was not used to interpret this result as normal/abnormal . HGB (test code = 12.0 g/dL 12.2-16.4 L 718-7) HCT (test code = 35.0 % 38.4-49.3 L 4544-3) MCV (test code = 92.1 fL 81.7-95.6 787-2) MCH (test code = 31.6 pg 26.1-32.7 785-6) MCHC (test code = 34.3 g/dL 31.2-35 786-4) RDW-SD (test code = 49.6 fL 38.5-51.6 73482-9) RDW-CV (test code = 14.6 % 12.1-15.4 788-0) PLT (test code = See_Comment L [Automated 777-3) message] The sy stem which generated this result transmitted reference range : 150 - 328 10*3/ ?L. The reference r corey was not used to interpret this result as normal/abnormal . MPV (test code = 9.9 fL 9.8-13 10983-9) NRBC/100 WBC (test See_Comment [Automat ed code = 2863433394) message] The system which generated this result transmitted reference range : 0.0 - 10.0 /100 WBCs. The refer ence range was not u sed to interpret th is result as normal/abnormal . NRBC x10^3 (test code <0.01 See_Comment [Auto mated = 5236054071) message] The s ystem which generated this result transmitted reference range : 10*3/?L. The reference range was not used to interpret this result as normal/abnormal . GRAN MAT (NEUT) % 55.3 % (test code = 770-8) IMM GRAN % (test code 0.20 % = 5251954447) LYMPH % (test code = 28.3 % 736-9) MONO % (test code = 12.6 % 5905-5) EOS % (test code = 3.1 % 713-8) BASO % (test code = 0.5 % 706-2) GRAN MAT x10^3(ANC) 3.20 10*3/uL 1.99-6.95 (test code = 0706858727) IMM GRAN x10^3 (test <0.03 0-0.06 code = 9104471928) LYMPH x10^3 (test code 1.64 10*3/uL 1.09-3.23 = 731-0) MONO x10^3 (test code 0.73 10*3/uL 0.36-1.02 = 742-7) EOS x10^3 (test code = 0.18 10*3/uL 0.06-0.53 711-2) BASO x10^3 (test code 0.03 10*3/uL 0.01-0.09 = 704-7) Lab Interpretation Abnormal (test code = 81248-5) [facility] WITH [id number] 23:57:00 Test Item Value Reference Range Interpretation Comments WBC (test code = See_Comment [Automated 0790-2) message] The sy stem which generated this result transmitted reference range : 4.20 - 10.70 10*3/?L. The reference range was not used to interpret this result as normal/abnormal . RBC (test code = See_Comment L [Automated 649-8) message] The sy stem which generated this result transmitted reference range : 4.26 - 5.52 10*6/?L. The reference range was not used to interpret this result as normal/abnormal . HGB (test code = 12.0 g/dL 12.2-16.4 L 718-7) HCT (test code = 35.0 % 38.4-49.3 L 4544-3) MCV (test code = 92.1 fL 81.7-95.6 787-2) MCH (test code = 31.6 pg 26.1-32.7 785-6) MCHC (test code = 34.3 g/dL 31.2-35 786-4) RDW-SD (test code = 49.6 fL 38.5-51.6 70313-0) RDW-CV (test code = 14.6 % 12.1-15.4 788-0) PLT (test code = See_Comment L [Automated 777-3) message] The sy stem which generated this result transmitted reference range : 150 - 328 10*3/ ?L. The reference r corey was not used to interpret this result as normal/abnormal . MPV (test code = 9.9 fL 9.8-13 96032-1) NRBC/100 WBC (test See_Comment [Automat ed code = 7879568020) message] The system which generated this result transmitted reference range : 0.0 - 10.0 /100 WBCs. The refer ence range was not u sed to interpret th is result as normal/abnormal . NRBC x10^3 (test code <0.01 See_Comment [Auto mated = 5471705532) message] The s ystem which generated this result transmitted reference range : 10*3/?L. The reference range was not used to interpret this result as normal/abnormal . GRAN MAT (NEUT) % 55.3 % (test code = 770-8) IMM GRAN % (test code 0.20 % = 5372850572) LYMPH % (test code = 28.3 % 736-9) MONO % (test code = 12.6 % 5905-5) EOS % (test code = 3.1 % 713-8) BASO % (test code = 0.5 % 706-2) GRAN MAT x10^3(ANC) 3.20 10*3/uL 1.99-6.95 (test code = 7029044096) IMM GRAN x10^3 (test <0.03 0-0.06 code = 4101223618) LYMPH x10^3 (test code 1.64 10*3/uL 1.09-3.23 = 731-0) MONO x10^3 (test code 0.73 10*3/uL 0.36-1.02 = 742-7) EOS x10^3 (test code = 0.18 10*3/uL 0.06-0.53 711-2) BASO x10^3 (test code 0.03 10*3/uL 0.01-0.09 = 704-7) Lab Interpretation Abnormal (test code = 02110-4) [facility] [id number] 21:48:00 Test Item Value Reference Range Interpretation Comments SARS-CoV-2 (test code = Not Detected Not Detected 49198-4) ALYSSA (test code = ALYSSA) ID NOW COVID-19 Assay is an isothermal nucleic acid amplification test intended for the qualitative detection of nucleic acid from SARS-CoV-2 viral RNA in nasopharyngeal ([employer]) specimens. It is used under Emergency Use Authorization (EUA) by FDA. The limit of detection (LOD) of the assay is 125 Genome Equivalents/mL. A positive result is indicative of the presence of SARS-CoV-2 RNA. ?Clinical correlation with patient history and other diagnostic information is necessary to determine patient infection status. A negative (Not Detected) result does not preclude SARS-CoV-2 infection. Clinical correlation with patient history and other diagnostic information should be used in patient management decisions. Invalid: Please collect a new specimen for repeat patient testing if clinically indicated. Lab Interpretation Normal (test code = 75398-6) [facility] [id number] 21:44:00 Test Item Value Reference Range Interpretation Comments TROPONIN I (test 0.027 ng/mL See_Comment [Automated code = 0969748012) message] The system which generated this result transmitted reference range : <=0.034. The reference range was not used to interpret this result as normal/abnormal . ALYSSA (test code = Equal or Less than ALYSSA) 0.034 ng/ml---Normal ?Note: Cardiac troponin begins to rise 3-4 hours after the onset of ischemia. Repeat in 4-6 hours if the sample was drawn within 3-4 hours of the onset of the symptom and found normal. Between 0.035 and 0.120 ng/mL--- Borderline. Questionable myocardial injury or necrosis ? ?Note: Serial measurement may be necessary to confirm or exclude the diagnosis of myocardial injury or necrosis; Clinical correlation (symptoms, EKGs, imaging studies, and others) required; Repeat in 4-6 hours if clinically indicated. ? Equal or Higher than 0.121 ng/mL---Abnormal. Myocardial Injury or Necrosis Likely ? Biotin has been reported to cause a negative bias, interpret results relative to patient's use of biotin. ? Lab Interpretation Normal (test code = 42708-7) [facility]thrombin Time (PT) / [id number] 21:41:00 Test Item Value Reference Range Interpretation Comments PROTIME PATIENT (test See_Comment [Auto mated message] code = 5964-2) The system wh ich generated this result transmitted ref erence range: 12.0 - 1 4.7 Seconds. The re ference range was not u sed to interpret this result as normal/abnor mal. INR (test code = 6301-6) Nor mal INR <1.1; Warfarin Therap eutic range 2.0 to 3. 0 or 2.5 to 3.5, dep ending upon the indica tions. Lab Interpretation (test Normal code = 90837-7) [facility]MIN[facility] [id number] 21:39:00 Test Item Value Reference Range Interpretation Comments NT-proBNP (test code 663 pg/mL See_Comment H [Autom ated = 6489239933) message] The system which generated this result transmitted reference range : <=450. The reference range was not used to interpret this result as normal/abnormal . ALYSSA (test code = ALYSSA) Biotin has been reported to cause a negative bias, interpret results relative to patient's use of biotin. Lab Interpretation Abnormal (test code = 34642-2) [facility]COMP. METABOLIC PANEL ([id number])2020-03-21 21:37:00 Test Item Value Reference Range Interpretation Comments NA (test code = 139 mmol/L 135-145 8796316776) K (test code = 4.1 mmol/L 3.5-5 5569410266) CL (test code = 102 mmol/L 98-108 7671853366) CO2 TOTAL (test code = 29 mmol/L 23-31 4330278134) AGAP (test code = 2-16 4073093033) BUN (test code = 18 mg/dL 7-23 2352360899) GLUCOSE (test code = 277 mg/dL 70-110 H 4452601198) CREATININE (test code = 1.23 mg/dL 0.6-1.25 6080890409) TOTAL BILI (test code = 1.3 mg/dL 0.1-1.1 H 1598277226) CALCIUM (test code = 9.8 mg/dL 8.6-10.6 2855058549) T PROTEIN (test code = 7.0 g/dL 6.3-8.2 2966857170) ALBUMIN (test code = 4.2 g/dL 3.5-5 0897216600) ALK PHOS (test code = 50 U/L 34-122 3927005128) ALTv (test code = 15 U/L 5-50 1742-6) AST(SGOT) (test code = 22 U/L 13-40 5216976394) eGFR Calculation mL/min/1.73m2 (Non-) (test code = 9165613018) eGFR Calculation mL/min/1.73m2 () (test code = 8324307671) ALYSSA (test code = ALYSSA) Association of Glomerular Filtration Rate (GFR) and Staging of Kidney Disease* + --+ --+ ------+| GFR (mL/min/1.73 m2) ?| With Kidney Damage ?| ?Without Kidney Damage+ --------+ --------+ +| ?>90 ?| ?Stage one ?| ? Normal ?+ ---+ ---+ -------+| ?60-89 ?| ?Stage two ?| ? Decreased GFR ? + --+ --+ ------+| ?30-59 ?| ?Stage three ?| ? Stage three ? + --+ --+ ------+| ?15-29 ?| ?Stage four ? | ? Stage four ?+ ---+ ---+ -------+| ?<15 (or dialysis) ? ?| ?Stage five ? | ? Stage five ?+ ---+ ---+ -------+ *Each stage assumes the associated GFR level has been in effect for at least three months. ?Stages 1 to 5, with or without kidney disease, indicate chronic kidney disease. Notes: Determination of stages one and two (with eGFR >59mL/min/1.73 m2) requires estimation of kidney damage for at least three months as defined by structural or functional abnormalities of the kidney, manifested by either:Pathological abnormalities or Markers of kidney damage (including abnormalities in the composition of the blood or urine or abnormalities in imaging tests). Lab Interpretation Abnormal (test code = 49813-0) [facility] SouthLipase [id number] 21:37:00 Test Item Value Reference Range Interpretation Comments LIPASE (test code = 4836305965) 161 U/L 0-220 Lab Interpretation (test code = Normal 13737-4) [facility] 1 [id number] 20:46:31HISTORY: Chest pain. TECHNIQUE: Portable AP view of the chest is obtained. Comparison made with03/04/2020 study. FINDINGS: No acute pneumonia. No pneumothorax or pleural effusion orpulmonary congestion detected. Mild cardiomegaly and intrathecal electrodesin lower thoracic spinal canal noted. Mild thoracolumbar scoliosis noted. CONCLUSIONS: Mild cardiomegaly.[facility], Radiant Results Inft User - 03/21/2020 3:47 PM CDTHISTORY: Chest pain.TECHNIQUE: Portable AP view of the chest is obtained. Comparison made with03/04/2020 study.FINDINGS: No acute pneumonia. No pneumothorax or pleural effusion orpulmonary congestion detected. Mild cardiomegaly and intrathecal electrodesin lower thoracic spinal canal noted. Mild thoracolumbar scoliosis noted.CONCLUSIONS: Mild cardiomegaly. [facility] SouthLactic Acid Whole [id number] 20:43:00 Test Item Value Reference Range Interpretation Comments LACTIC ACID (test code = 1.91 mmol/L 0.3-2.6 7198665592) [facility]PO[facility] GLUCOSE (AUTOMATED)2020-03-07 20:58:00 Test Item Value Reference Range Interpretation Comments POCT GLU (test code = 8055028044) 216 mg/dL 70-110 H Lab Interpretation (test code = Abnormal 15369-6) [facility] GLUCOSE (AUTOMATED)2020-03-07 16:00:00 Test Item Value Reference Range Interpretation Comments POCT GLU (test code = 9197550022) 168 mg/dL 70-110 H Lab Interpretation (test code = Abnormal 28819-4) [facility] GLUCOSE (AUTOMATED)2020-03-07 13:07:00 Test Item Value Reference Range Interpretation Comments POCT GLU (test code = 9715442941) 148 mg/dL 70-110 H Lab Interpretation (test code = Abnormal 12438-1) [facility] SouthTROPONIN [id number] 11:27:00 Test Item Value Reference Range Interpretation Comments TROPONIN I (test 0.051 ng/mL See_Comment H [Automated code = 1237908287) message] The system which generated this result transmitted reference range : <=0.034. The reference range was not used to interpret this result as normal/abnormal . ALYSSA (test code = Equal or Less than ALYSSA) 0.034 ng/ml---Normal ?Note: Cardiac troponin begins to rise 3-4 hours after the onset of ischemia. Repeat in 4-6 hours if the sample was drawn within 3-4 hours of the onset of the symptom and found normal. Between 0.035 and 0.120 ng/mL--- Borderline. Questionable myocardial injury or necrosis ? ?Note: Serial measurement may be necessary to confirm or exclude the diagnosis of myocardial injury or necrosis; Clinical correlation (symptoms, EKGs, imaging studies, and others) required; Repeat in 4-6 hours if clinically indicated. ? Equal or Higher than 0.121 ng/mL---Abnormal. Myocardial Injury or Necrosis Likely ? Biotin has been reported to cause a negative bias, interpret results relative to patient's use of biotin. ? Lab Interpretation Abnormal (test code = 50097-8) [facility]N-TERMINAL [id number] 11:24:00 Test Item Value Reference Range Interpretation Comments NT-proBNP (test code 336 pg/mL See_Comment [Autom ated = 1741438654) message] The system which generated this result transmitted reference range : <=450. The reference range was not used to interpret this result as normal/abnormal . ALYSSA (test code = ALYSSA) Biotin has been reported to cause a negative bias, interpret results relative to patient's use of biotin. Lab Interpretation Normal (test code = 97974-3) [facility] Metabolic Panel (NA, K, CL, CO2, GLUCOSE, BUN, CREATININE, CA)2020-03-07 11:14:00 Test Item Value Reference Range Interpretation Comments NA (test code = 138 mmol/L 135-145 4050023271) K (test code = 3.8 mmol/L 3.5-5 0813693061) CL (test code = 97 mmol/L 98-108 L 7527910730) CO2 TOTAL (test code = 30 mmol/L 23-31 8387424909) AGAP (test code = 2-16 1440998590) BUN (test code = 36 mg/dL 7-23 H 5246948438) GLUCOSE (test code = 140 mg/dL 70-110 H 7389961511) CREATININE (test code = 1.50 mg/dL 0.6-1.25 H 6942061210) CALCIUM (test code = 10.0 mg/dL 8.6-10.6 2760988089) eGFR Calculation mL/min/1.73m2 (Non-) (test code = 7535878790) eGFR Calculation mL/min/1.73m2 () (test code = 0522297209) ALYSSA (test code = ALYSSA) Association of Glomerular Filtration Rate (GFR) and Staging of Kidney Disease* + --+ --+ ------+| GFR (mL/min/1.73 m2) ?| With Kidney Damage ?| ?Without Kidney Damage+ --------+ --------+ +| ?>90 ?| ?Stage one ?| ? Normal ?+ ---+ ---+ -------+| ?60-89 ?| ?Stage two ?| ? Decreased GFR ? + --+ --+ ------+| ?30-59 ?| ?Stage three ?| ? Stage three ? + --+ --+ ------+| ?15-29 ?| ?Stage four ? | ? Stage four ?+ ---+ ---+ -------+| ?<15 (or dialysis) ? ?| ?Stage five ? | ? Stage five ?+ ---+ ---+ -------+ *Each stage assumes the associated GFR level has been in effect for at least three months. ?Stages 1 to 5, with or without kidney disease, indicate chronic kidney disease. Notes: Determination of stages one and two (with eGFR >59mL/min/1.73 m2) requires estimation of kidney damage for at least three months as defined by structural or functional abnormalities of the kidney, manifested by either:Pathological abnormalities or Markers of kidney damage (including abnormalities in the composition of the blood or urine or abnormalities in imaging tests). Lab Interpretation Abnormal (test code = 57414-3) [facility] SouthURIC [id number] 11:14:00 Test Item Value Reference Range Interpretation Comments URIC ACID (test code = 3015559678) 5.4 mg/dL 3.6-8 Lab Interpretation (test code = Normal 84626-6) [facility] WITH [id number] 10:53:00 Test Item Value Reference Range Interpretation Comments WBC (test code = See_Comment [Automated 6690-2) message] The sy stem which generated this result transmitted reference range : 4.20 - 10.70 10*3/?L. The reference range was not used to interpret this result as normal/abnormal . RBC (test code = See_Comment L [Automated 789-8) message] The sy stem which generated this result transmitted reference range : 4.26 - 5.52 10*6/?L. The reference range was not used to interpret this result as normal/abnormal . HGB (test code = 13.5 g/dL 12.2-16.4 718-7) HCT (test code = 37.2 % 38.4-49.3 L 4544-3) MCV (test code = 87.9 fL 81.7-95.6 787-2) MCH (test code = 31.9 pg 26.1-32.7 785-6) MCHC (test code = 36.3 g/dL 31.2-35 H 786-4) RDW-SD (test code = 45.1 fL 38.5-51.6 46088-4) RDW-CV (test code = 14.2 % 12.1-15.4 788-0) PLT (test code = See_Comment [Automated 777-3) message] The sy stem which generated this result transmitted reference range : 150 - 328 10*3/ ?L. The reference r corey was not used to interpret this result as normal/abnormal . MPV (test code = 9.8 fL 9.8-13 80212-9) NRBC/100 WBC (test See_Comment [Automat ed code = 1964012896) message] The system which generated this result transmitted reference range : 0.0 - 10.0 /100 WBCs. The refer ence range was not u sed to interpret th is result as normal/abnormal . NRBC x10^3 (test code <0.01 See_Comment [Auto mated = 3614762928) message] The s ystem which generated this result transmitted reference range : 10*3/?L. The reference range was not used to interpret this result as normal/abnormal . GRAN MAT (NEUT) % 51.0 % (test code = 770-8) IMM GRAN % (test code 0.50 % = 5755277232) LYMPH % (test code = 32.0 % 736-9) MONO % (test code = 11.3 % 5905-5) EOS % (test code = 4.3 % 713-8) BASO % (test code = 0.9 % 706-2) GRAN MAT x10^3(ANC) 2.85 10*3/uL 1.99-6.95 (test code = 6778582047) IMM GRAN x10^3 (test 0.03 10*3/uL 0-0.06 code = 6491350940) LYMPH x10^3 (test code 1.79 10*3/uL 1.09-3.23 = 731-0) MONO x10^3 (test code 0.63 10*3/uL 0.36-1.02 = 742-7) EOS x10^3 (test code = 0.24 10*3/uL 0.06-0.53 711-2) BASO x10^3 (test code 0.05 10*3/uL 0.01-0.09 = 704-7) Lab Interpretation Abnormal (test code = 24731-7) [facility] GLUCOSE (AUTOMATED)2020-03-06 22:46:00 Test Item Value Reference Range Interpretation Comments POCT GLU (test code = 2675482073) 209 mg/dL 70-110 H Lab Interpretation (test code = Abnormal 41039-5) [facility] GLUCOSE (AUTOMATED)2020-03-06 16:23:00 Test Item Value Reference Range Interpretation Comments POCT GLU (test code = 1132889151) 254 mg/dL 70-110 H Lab Interpretation (test code = Abnormal 90061-0) [facility] GLUCOSE (AUTOMATED)2020-03-06 12:51:00 Test Item Value Reference Range Interpretation Comments POCT GLU (test code = 3821890794) 126 mg/dL 70-110 H Lab Interpretation (test code = Abnormal 08875-3) [facility]IN [id number] 10:16:00 Test Item Value Reference Range Interpretation Comments TROPONIN I (test 0.056 ng/mL See_Comment H [Automated code = 4441274073) message] The system which generated this result transmitted reference range : <=0.034. The reference range was not used to interpret this result as normal/abnormal . ALYSSA (test code = Equal or Less than ALYSSA) 0.034 ng/ml---Normal ?Note: Cardiac troponin begins to rise 3-4 hours after the onset of ischemia. Repeat in 4-6 hours if the sample was drawn within 3-4 hours of the onset of the symptom and found normal. Between 0.035 and 0.120 ng/mL--- Borderline. Questionable myocardial injury or necrosis ? ?Note: Serial measurement may be necessary to confirm or exclude the diagnosis of myocardial injury or necrosis; Clinical correlation (symptoms, EKGs, imaging studies, and others) required; Repeat in 4-6 hours if clinically indicated. ? Equal or Higher than 0.121 ng/mL---Abnormal. Myocardial Injury or Necrosis Likely ? Biotin has been reported to cause a negative bias, interpret results relative to patient's use of biotin. ? Lab Interpretation Abnormal (test code = 69453-3) [facility] [place] (NA, K, CL, CO2, GLUCOSE, BUN, CREATININE, CA)2020-03-06 10:13:00 Test Item Value Reference Range Interpretation Comments NA (test code = 136 mmol/L 135-145 9567697987) K (test code = 4.1 mmol/L 3.5-5 8288904698) CL (test code = 95 mmol/L 98-108 L 8223530485) CO2 TOTAL (test code = 30 mmol/L 23-31 7740677429) AGAP (test code = 2-16 1524081387) BUN (test code = 35 mg/dL 7-23 H 2542676218) GLUCOSE (test code = 174 mg/dL 70-110 H 8628967049) CREATININE (test code = 1.67 mg/dL 0.6-1.25 H 3423553420) CALCIUM (test code = 9.7 mg/dL 8.6-10.6 5904437299) eGFR Calculation mL/min/1.73m2 (Non-) (test code = 3841956134) eGFR Calculation mL/min/1.73m2 () (test code = 9919251149) ALYSSA (test code = ALYSSA) Association of Glomerular Filtration Rate (GFR) and Staging of Kidney Disease* + --+ --+ ------+| GFR (mL/min/1.73 m2) ?| With Kidney Damage ?| ?Without Kidney Damage+ --------+ --------+ +| ?>90 ?| ?Stage one ?| ? Normal ?+ ---+ ---+ -------+| ?60-89 ?| ?Stage two ?| ? Decreased GFR ? + --+ --+ ------+| ?30-59 ?| ?Stage three ?| ? Stage three ? + --+ --+ ------+| ?15-29 ?| ?Stage four ? | ? Stage four ?+ ---+ ---+ -------+| ?<15 (or dialysis) ? ?| ?Stage five ? | ? Stage five ?+ ---+ ---+ -------+ *Each stage assumes the associated GFR level has been in effect for at least three months. ?Stages 1 to 5, with or without kidney disease, indicate chronic kidney disease. Notes: Determination of stages one and two (with eGFR >59mL/min/1.73 m2) requires estimation of kidney damage for at least three months as defined by structural or functional abnormalities of the kidney, manifested by either:Pathological abnormalities or Markers of kidney damage (including abnormalities in the composition of the blood or urine or abnormalities in imaging tests). Lab Interpretation Abnormal (test code = 84766-6) [facility] WITH [id number] 09:16:00 Test Item Value Reference Range Interpretation Comments WBC (test code = See_Comment [Automated 6690-2) message] The sy stem which generated this result transmitted reference range : 4.20 - 10.70 10*3/?L. The reference range was not used to interpret this result as normal/abnormal . RBC (test code = See_Comment L [Automated 789-8) message] The sy stem which generated this result transmitted reference range : 4.26 - 5.52 10*6/?L. The reference range was not used to interpret this result as normal/abnormal . HGB (test code = 13.1 g/dL 12.2-16.4 718-7) HCT (test code = 37.2 % 38.4-49.3 L 4544-3) MCV (test code = 88.6 fL 81.7-95.6 787-2) MCH (test code = 31.2 pg 26.1-32.7 785-6) MCHC (test code = 35.2 g/dL 31.2-35 H 786-4) RDW-SD (test code = 45.6 fL 38.5-51.6 43148-1) RDW-CV (test code = 14.3 % 12.1-15.4 788-0) PLT (test code = See_Comment [Automated 777-3) message] The sy stem which generated this result transmitted reference range : 150 - 328 10*3/ ?L. The reference r corey was not used to interpret this result as normal/abnormal . MPV (test code = 9.8 fL 9.8-13 85468-5) NRBC/100 WBC (test See_Comment [Automat ed code = 5814513564) message] The system which generated this result transmitted reference range : 0.0 - 10.0 /100 WBCs. The refer ence range was not u sed to interpret th is result as normal/abnormal . NRBC x10^3 (test code <0.01 See_Comment [Auto mated = 2025743697) message] The s ystem which generated this result transmitted reference range : 10*3/?L. The reference range was not used to interpret this result as normal/abnormal . GRAN MAT (NEUT) % 56.1 % (test code = 770-8) IMM GRAN % (test code 0.10 % = 8296823318) LYMPH % (test code = 29.7 % 736-9) MONO % (test code = 9.6 % 5905-5) EOS % (test code = 3.8 % 713-8) BASO % (test code = 0.7 % 706-2) GRAN MAT x10^3(ANC) 3.79 10*3/uL 1.99-6.95 (test code = 5875286775) IMM GRAN x10^3 (test <0.03 0-0.06 code = 1430864619) LYMPH x10^3 (test code 2.01 10*3/uL 1.09-3.23 = 731-0) MONO x10^3 (test code 0.65 10*3/uL 0.36-1.02 = 742-7) EOS x10^3 (test code = 0.26 10*3/uL 0.06-0.53 711-2) BASO x10^3 (test code 0.05 10*3/uL 0.01-0.09 = 704-7) Lab Interpretation Abnormal (test code = 25138-2) [facility]2020-[facility]-06 01:25:00 Test Item Value Reference Range Interpretation Comments POCT GLU (test code = 5982504111) 208 mg/dL 70-110 H Lab Interpretation (test code = Abnormal 85412-7) [facility] [id number] 00:08:00 Test Item Value Reference Range Interpretation Comments TROPONIN I (test 0.047 ng/mL See_Comment H [Automated code = 1033286891) message] The system which generated this result transmitted reference range : <=0.034. The reference range was not used to interpret this result as normal/abnormal . ALSYSA (test code = Equal or Less than ALYSSA) 0.034 ng/ml---Normal ?Note: Cardiac troponin begins to rise 3-4 hours after the onset of ischemia. Repeat in 4-6 hours if the sample was drawn within 3-4 hours of the onset of the symptom and found normal. Between 0.035 and 0.120 ng/mL--- Borderline. Questionable myocardial injury or necrosis ? ?Note: Serial measurement may be necessary to confirm or exclude the diagnosis of myocardial injury or necrosis; Clinical correlation (symptoms, EKGs, imaging studies, and others) required; Repeat in 4-6 hours if clinically indicated. ? Equal or Higher than 0.121 ng/mL---Abnormal. Myocardial Injury or Necrosis Likely ? Biotin has been reported to cause a negative bias, interpret results relative to patient's use of biotin. ? Lab Interpretation Abnormal (test code = 57713-0) [facility] GLUCOSE (AUTOMATED)2020-03-05 21:19:00 Test Item Value Reference Range Interpretation Comments POCT GLU (test code = 5742337970) 234 mg/dL 70-110 H Lab Interpretation (test code = Abnormal 59722-6) [facility] GLUCOSE (AUTOMATED)2020-03-05 16:55:00 Test Item Value Reference Range Interpretation Comments POCT GLU (test code = 5986553201) 258 mg/dL 70-110 H Lab Interpretation (test code = Abnormal 72139-7) [facility] GLUCOSE (AUTOMATED)2020-03-05 12:59:00 Test Item Value Reference Range Interpretation Comments POCT GLU (test code = 1900096069) 194 mg/dL 70-110 H Lab Interpretation (test code = Abnormal 06436-7) [facility] [id number] 10:54:00 Test Item Value Reference Range Interpretation Comments TROPONIN I (test 0.071 ng/mL See_Comment H [Automated code = 0446904040) message] The system which generated this result transmitted reference range : <=0.034. The reference range was not used to interpret this result as normal/abnormal . ALYSSA (test code = Equal or Less than ALYSSA) 0.034 ng/ml---Normal ?Note: Cardiac troponin begins to rise 3-4 hours after the onset of ischemia. Repeat in 4-6 hours if the sample was drawn within 3-4 hours of the onset of the symptom and found normal. Between 0.035 and 0.120 ng/mL--- Borderline. Questionable myocardial injury or necrosis ? ?Note: Serial measurement may be necessary to confirm or exclude the diagnosis of myocardial injury or necrosis; Clinical correlation (symptoms, EKGs, imaging studies, and others) required; Repeat in 4-6 hours if clinically indicated. ? Equal or Higher than 0.121 ng/mL---Abnormal. Myocardial Injury or Necrosis Likely ? Biotin has been reported to cause a negative bias, interpret results relative to patient's use of biotin. ? Lab Interpretation Abnormal (test code = 75090-2) [facility] [place] (NA, K, CL, CO2, GLUCOSE, BUN, CREATININE, CA)2020-03-05 10:43:00 Test Item Value Reference Range Interpretation Comments NA (test code = 139 mmol/L 135-145 1284932775) K (test code = 4.1 mmol/L 3.5-5 1891137105) CL (test code = 101 mmol/L 98-108 0020189810) CO2 TOTAL (test code = 27 mmol/L 23-31 9955137884) AGAP (test code = 2-16 1064725543) BUN (test code = 25 mg/dL 7-23 H 0338304794) GLUCOSE (test code = 243 mg/dL 70-110 H 2054132034) CREATININE (test code = 1.22 mg/dL 0.6-1.25 4275967712) CALCIUM (test code = 9.8 mg/dL 8.6-10.6 0670063766) eGFR Calculation mL/min/1.73m2 (Non-) (test code = 2357254172) eGFR Calculation mL/min/1.73m2 () (test code = 5303578948) ALYSSA (test code = ALYSSA) Association of Glomerular Filtration Rate (GFR) and Staging of Kidney Disease* + --+ --+ ------+| GFR (mL/min/1.73 m2) ?| With Kidney Damage ?| ?Without Kidney Damage+ --------+ --------+ +| ?>90 ?| ?Stage one ?| ? Normal ?+ ---+ ---+ -------+| ?60-89 ?| ?Stage two ?| ? Decreased GFR ? + --+ --+ ------+| ?30-59 ?| ?Stage three ?| ? Stage three ? + --+ --+ ------+| ?15-29 ?| ?Stage four ? | ? Stage four ?+ ---+ ---+ -------+| ?<15 (or dialysis) ? ?| ?Stage five ? | ? Stage five ?+ ---+ ---+ -------+ *Each stage assumes the associated GFR level has been in effect for at least three months. ?Stages 1 to 5, with or without kidney disease, indicate chronic kidney disease. Notes: Determination of stages one and two (with eGFR >59mL/min/1.73 m2) requires estimation of kidney damage for at least three months as defined by structural or functional abnormalities of the kidney, manifested by either:Pathological abnormalities or Markers of kidney damage (including abnormalities in the composition of the blood or urine or abnormalities in imaging tests). Lab Interpretation Abnormal (test code = 96516-9) [facility] WITH [id number] 10:23:00 Test Item Value Reference Range Interpretation Comments WBC (test code = See_Comment [Automated message] 6690-2) The system [employer] generated this result transmitted ref erence range: 4.20 - 1 0.70 10*3/?L. The re ference range was not u sed to interpret this result as normal/abnor mal. RBC (test code = See_Comment [Automated message] 789-8) The system [employer] generated this result transmitted ref erence range: 4.26 - 5 .52 10*6/?L. The re ference range was not u sed to interpret this result as normal/abnor mal. HGB (test code = 13.6 g/dL 12.2-16.4 718-7) HCT (test code = 39.6 % 38.4-49.3 4544-3) MCV (test code = 90.6 fL 81.7-95.6 787-2) MCH (test code = 31.1 pg 26.1-32.7 785-6) MCHC (test code = 34.3 g/dL 31.2-35 786-4) RDW-SD (test code 47.8 fL 38.5-51.6 = 20177-8) RDW-CV (test code 14.4 % 12.1-15.4 = 788-0) PLT (test code = See_Comment [Automated message] 777-3) The system [employer] generated this result transmitted ref erence range: 150 - 32 8 10*3/?L. The re ference range was not u sed to interpret this result as normal/abnor mal. MPV (test code = 9.8 fL 9.8-13 85329-0) NRBC/100 WBC (test See_Comment [Automat ed message] code = 5738616279) The syste m which generated this result transmitted ref erence range: 0.0 - 10 .0 /100 WBCs. The refer ence range was not u sed to interpret this result as normal/abnor mal. NRBC x10^3 (test <0.01 See_Comment [Automated message] code = 1540790659) The syste m which generated this result transmitted ref erence range: 10*3/?L. The reference range was not used to interpr et this result as normal/abnormal . GRAN MAT (NEUT) % 48.8 % (test code = 770-8) IMM GRAN % (test 0.20 % code = 2792131595) LYMPH % (test code 34.7 % = 736-9) MONO % (test code 10.8 % = 5905-5) EOS % (test code = 4.9 % 713-8) BASO % (test code 0.6 % = 706-2) GRAN MAT 2.49 10*3/uL 1.99-6.95 x10^3(ANC) (test code = 5752705057) IMM GRAN x10^3 <0.03 0-0.06 (test code = 0638378251) LYMPH x10^3 (test 1.77 10*3/uL 1.09-3.23 code = 731-0) MONO x10^3 (test 0.55 10*3/uL 0.36-1.02 code = 742-7) EOS x10^3 (test 0.25 10*3/uL 0.06-0.53 code = 711-2) BASO x10^3 (test 0.03 10*3/uL 0.01-0.09 code = 704-7) [facility] [id number] 03:06:08 No acute cardiopulmonary process. Unchanged enlargement of the cardiac silhouette. Preliminary Report Dictated by Resident: Lauro Palacio MD., have reviewed this study and agree with the abovereport.PROCEDURE: XR CHEST 1 VW CLINICAL INDICATION: chest COMPARISON: 01/15/2020 TECHNIQUE: A frontal view of the chest was obtained FINDINGS: No focal consolidation, pleural effusion, or pneumothorax. The cardiac silhouette is mildly to moderately enlarged, unchanged.Atherosclerotic calcifications are seen in the aortic arch. No acute osseous abnormality. Spinal stimulator leads terminating over themid to lower thoracic spine. [facility], Radiant Results Inft User - 03/04/2020 10:07 PM CDTPROCE DURE: XR CHEST 1 VWCLINICAL INDICATION: chest COMPARISON: 01/15/2020TECHNIQUE: A frontal view of the chest was obtainedFINDINGS:No focal consolidation, pleural effusion, or pneumothorax. The cardiac silhouette is mildly to moderately enlarged, unchanged.Atherosclerotic calcifications are seen in the aortic arch.No acute osseous abnormality. Spinal stimulator leads terminating over themid to lower thoracic spine.IMPRESSIONNo acute cardiopulmonary process.Unchanged enlargement of the cardiac silhouette.Preliminary Report Dictated by Resident: Lauro Merrill MD., have reviewed this study and agree with the abovereport.[facility] CORONAVIRUS COVID-19 [id number] 00:34:00 Test Item Value Reference Range Interpretation Comments SARS-CoV-2 (test code = Not Detected Not Detected 90935-2) ALYSSA (test code = ALYSSA) ID NOW COVID-19 Assay is an isothermal nucleic acid amplification test intended for the qualitative detection of nucleic acid from SARS-CoV-2 viral RNA in nasopharyngeal ([employer]) specimens. It is used under Emergency Use Authorization (EUA) by FDA. The limit of detection (LOD) of the assay is 125 Genome Equivalents/mL. A positive result is indicative of the presence of SARS-CoV-2 RNA. ?Clinical correlation with patient history and other diagnostic information is necessary to determine patient infection status. A negative (Not Detected) result does not preclude SARS-CoV-2 infection. Clinical correlation with patient history and other diagnostic information should be used in patient management decisions. Invalid: Please collect a new specimen for repeat patient testing if clinically indicated. Lab Interpretation Normal (test code = 30081-6) [facility] SouthFlakokvng [id number] 00:08:00 Test Item Value Reference Range Interpretation Comments TROPONIN I (test 0.056 ng/mL See_Comment H [Automated code = 0835280382) message] The system which generated this result transmitted reference range : <=0.034. The reference range was not used to interpret this result as normal/abnormal . ALYSSA (test code = Equal or Less than ALYSSA) 0.034 ng/ml---Normal ?Note: Cardiac troponin begins to rise 3-4 hours after the onset of ischemia. Repeat in 4-6 hours if the sample was drawn within 3-4 hours of the onset of the symptom and found normal. Between 0.035 and 0.120 ng/mL--- Borderline. Questionable myocardial injury or necrosis ? ?Note: Serial measurement may be necessary to confirm or exclude the diagnosis of myocardial injury or necrosis; Clinical correlation (symptoms, EKGs, imaging studies, and others) required; Repeat in 4-6 hours if clinically indicated. ? Equal or Higher than 0.121 ng/mL---Abnormal. Myocardial Injury or Necrosis Likely ? Biotin has been reported to cause a negative bias, interpret results relative to patient's use of biotin. ? Lab Interpretation Abnormal (test code = 95562-0) [facility]N-TERMINAL [id number] 00:04:00 Test Item Value Reference Range Interpretation Comments NT-proBNP (test code 562 pg/mL See_Comment H [Autom ated = 5436182140) message] The system which generated this result transmitted reference range : <=450. The reference range was not used to interpret this result as normal/abnormal . ALYSSA (test code = ALYSSA) Biotin has been reported to cause a negative bias, interpret results relative to patient's use of biotin. Lab Interpretation Abnormal (test code = 50643-5) [facility] SouthProthrombin Time (PT) / [id number] 23:57:00 Test Item Value Reference Range Interpretation Comments PROTIME PATIENT (test See_Comment [Auto mated message] code = 5964-2) The system wh ich generated this result transmitted ref erence range: 12.0 - 1 4.7 Seconds. The re ference range was not u sed to interpret this result as normal/abnor mal. INR (test code = 6301-6) Nor mal INR <1.1; Warfarin Therap eutic range 2.0 to 3. 0 or 2.5 to 3.5, dep ending upon the indica tions. Lab Interpretation (test Normal code = 09506-0) [facility] SouthBasi Metabolic Panel (NA, K, CL, CO2, GLUCOSE, BUN, CREATININE, CA)2020-03-04 23:56:00 Test Item Value Reference Range Interpretation Comments NA (test code = 139 mmol/L 135-145 4176495760) K (test code = 4.1 mmol/L 3.5-5 6931132173) CL (test code = 102 mmol/L 98-108 3033211852) CO2 TOTAL (test code = 29 mmol/L 23-31 7737302357) AGAP (test code = 2-16 4699982334) BUN (test code = 23 mg/dL 7-23 1589634892) GLUCOSE (test code = 193 mg/dL 70-110 H 5015961033) CREATININE (test code = 1.25 mg/dL 0.6-1.25 0344425131) CALCIUM (test code = 9.7 mg/dL 8.6-10.6 8831463325) eGFR Calculation mL/min/1.73m2 (Non-) (test code = 3212940643) eGFR Calculation mL/min/1.73m2 () (test code = 0781266596) ALYSSA (test code = ALYSSA) Association of Glomerular Filtration Rate (GFR) and Staging of Kidney Disease* + --+ --+ ------+| GFR (mL/min/1.73 m2) ?| With Kidney Damage ?| ?Without Kidney Damage+ --------+ --------+ +| ?>90 ?| ?Stage one ?| ? Normal ?+ ---+ ---+ -------+| ?60-89 ?| ?Stage two ?| ? Decreased GFR ? + --+ --+ ------+| ?30-59 ?| ?Stage three ?| ? Stage three ? + --+ --+ ------+| ?15-29 ?| ?Stage four ? | ? Stage four ?+ ---+ ---+ -------+| ?<15 (or dialysis) ? ?| ?Stage five ? | ? Stage five ?+ ---+ ---+ -------+ *Each stage assumes the associated GFR level has been in effect for at least three months. ?Stages 1 to 5, with or without kidney disease, indicate chronic kidney disease. Notes: Determination of stages one and two (with eGFR >59mL/min/1.73 m2) requires estimation of kidney damage for at least three months as defined by structural or functional abnormalities of the kidney, manifested by either:Pathological abnormalities or Markers of kidney damage (including abnormalities in the composition of the blood or urine or abnormalities in imaging tests). Lab Interpretation Abnormal (test code = 67274-4) [facility] SouthHepatic Function Panel (ALB, T.PRO, BILI T, BU/BC, ALT, AST, ALK PHOS)2020-03-04 23:56:00 Test Item Value Reference Range Interpretation Comments TOTAL BILI (test code = 7661168337) 1.1 mg/dL 0.1-1.1 BILI UNCON (test code = 4299244278) 1.1 mg/dL 0.1-1.1 BILI CONJ (test code = 5597612267) 0.0 mg/dL 0-0.3 T PROTEIN (test code = 6291705435) 7.1 g/dL 6.3-8.2 ALBUMIN (test code = 8077783506) 4.1 g/dL 3.5-5 ALK PHOS (test code = 2565191277) 61 U/L 34-122 ALTv (test code = 1742-6) 16 U/L 5-50 AST(SGOT) (test code = 1270347893) 23 U/L 13-40 Lab Interpretation (test code = Normal 14873-5) [facility] SouthLipase [id number] 23:56:00 Test Item Value Reference Range Interpretation Comments LIPASE (test code = 3276927395) 149 U/L 0-220 Lab Interpretation (test code = Normal 17447-6) [facility] SouthaPTT2020-04-19 23:56:00 Test Item Value Reference Range Interpretation Comments APTT Patient (test See_Comment [Automat ed code = 3173-2) message] The system which generated this result transmitted reference range : 23 - 38 Seconds . The reference range was not used to interpr et this result as normal/abnormal . ALYSSA (test code = ALYSSA) The [facility] patient population mean normal value for aPTT is 30 seconds. Lab Interpretation Normal (test code = 05032-5) [facility] SouthCBC WITH [id number] 23:46:00 Test Item Value Reference Range Interpretation Comments WBC (test code = See_Comment [Automated 4090-2) message] The sy stem which generated this result transmitted reference range : 4.20 - 10.70 10*3/?L. The reference range was not used to interpret this result as normal/abnormal . RBC (test code = See_Comment L [Automated 859-8) message] The sy stem which generated this result transmitted reference range : 4.26 - 5.52 10*6/?L. The reference range was not used to interpret this result as normal/abnormal . HGB (test code = 13.2 g/dL 12.2-16.4 718-7) HCT (test code = 37.6 % 38.4-49.3 L 4544-3) MCV (test code = 90.4 fL 81.7-95.6 787-2) MCH (test code = 31.7 pg 26.1-32.7 785-6) MCHC (test code = 35.1 g/dL 31.2-35 H 786-4) RDW-SD (test code = 48.3 fL 38.5-51.6 11998-0) RDW-CV (test code = 14.7 % 12.1-15.4 788-0) PLT (test code = See_Comment [Automated 777-3) message] The sy stem which generated this result transmitted reference range : 150 - 328 10*3/ ?L. The reference r corey was not used to interpret this result as normal/abnormal . MPV (test code = 9.8 fL 9.8-13 96476-6) NRBC/100 WBC (test See_Comment [Automat ed code = 8157960408) message] The system which generated this result transmitted reference range : 0.0 - 10.0 /100 WBCs. The refer ence range was not u sed to interpret th is result as normal/abnormal . NRBC x10^3 (test code <0.01 See_Comment [Auto mated = 9740105421) message] The s ystem which generated this result transmitted reference range : 10*3/?L. The reference range was not used to interpret this result as normal/abnormal . GRAN MAT (NEUT) % 60.1 % (test code = 770-8) IMM GRAN % (test code 0.20 % = 4178650117) LYMPH % (test code = 26.4 % 736-9) MONO % (test code = 9.9 % 5905-5) EOS % (test code = 2.8 % 713-8) BASO % (test code = 0.6 % 706-2) GRAN MAT x10^3(ANC) 3.17 10*3/uL 1.99-6.95 (test code = 3264642877) IMM GRAN x10^3 (test <0.03 0-0.06 code = 6769076626) LYMPH x10^3 (test code 1.39 10*3/uL 1.09-3.23 = 731-0) MONO x10^3 (test code 0.52 10*3/uL 0.36-1.02 = 742-7) EOS x10^3 (test code = 0.15 10*3/uL 0.06-0.53 711-2) BASO x10^3 (test code 0.03 10*3/uL 0.01-0.09 = 704-7) Lab Interpretation Abnormal (test code = 06086-8) [facility] GLUCOSE (AUTOMATED)2020-03-02 16:04:00 Test Item Value Reference Range Interpretation Comments POCT GLU (test code = 9785139239) 214 mg/dL 70-110 H Lab Interpretation (test code = Abnormal 15795-3) [facility] GLUCOSE (AUTOMATED)2020-03-02 16:04:00 Test Item Value Reference Range Interpretation Comments POCT GLU (test code = 5935845903) 271 mg/dL 70-110 H Lab Interpretation (test code = Abnormal 73984-9) [facility]N-TERMINAL [id number] 09:43:00 Test Item Value Reference Range Interpretation Comments NT-proBNP (test code 1670 pg/mL See_Comment H [Autom ated = 3451230341) message] The system which generated this result transmitted reference range : <=450. The reference range was not used to interpret this result as normal/abnormal . ALYSSA (test code = ALYSSA) Biotin has been reported to cause a negative bias, interpret results relative to patient's use of biotin. Lab Interpretation Abnormal (test code = 11042-7) [facility] METABOLIC PANEL (NA, K, CL, CO2, GLUCOSE, BUN, CREATININE, CA)2020-03-02 09:33:00 Test Item Value Reference Range Interpretation Comments NA (test code = 143 mmol/L 135-145 0703854687) K (test code = 3.8 mmol/L 3.5-5 3637399227) CL (test code = 105 mmol/L 98-108 1335129317) CO2 TOTAL (test code = 28 mmol/L 23-31 8067923912) AGAP (test code = 2-16 6886509383) BUN (test code = 19 mg/dL 7-23 7207365972) GLUCOSE (test code = 152 mg/dL 70-110 H 9179169521) CREATININE (test code = 1.18 mg/dL 0.6-1.25 3950750830) CALCIUM (test code = 9.0 mg/dL 8.6-10.6 0983648640) eGFR Calculation mL/min/1.73m2 (Non-) (test code = 2798600081) eGFR Calculation mL/min/1.73m2 () (test code = 9183142421) ALYSSA (test code = ALYSSA) Association of Glomerular Filtration Rate (GFR) and Staging of Kidney Disease* + --+ --+ ------+| GFR (mL/min/1.73 m2) ?| With Kidney Damage ?| ?Without Kidney Damage+ --------+ --------+ +| ?>90 ?| ?Stage one ?| ? Normal ?+ ---+ ---+ -------+| ?60-89 ?| ?Stage two ?| ? Decreased GFR ? + --+ --+ ------+| ?30-59 ?| ?Stage three ?| ? Stage three ? + --+ --+ ------+| ?15-29 ?| ?Stage four ? | ? Stage four ?+ ---+ ---+ -------+| ?<15 (or dialysis) ? ?| ?Stage five ? | ? Stage five ?+ ---+ ---+ -------+ *Each stage assumes the associated GFR level has been in effect for at least three months. ?Stages 1 to 5, with or without kidney disease, indicate chronic kidney disease. Notes: Determination of stages one and two (with eGFR >59mL/min/1.73 m2) requires estimation of kidney damage for at least three months as defined by structural or functional abnormalities of the kidney, manifested by either:Pathological abnormalities or Markers of kidney damage (including abnormalities in the composition of the blood or urine or abnormalities in imaging tests). Lab Interpretation Abnormal (test code = 66694-6) [facility]MAGNESIUM2020-04-17 09:33:00 Test Item Value Reference Range Interpretation Comments MAGNESIUM (test code = 4649378694) 1.8 mg/dL 1.7-2.4 Lab Interpretation (test code = Normal 69152-1) [facility] GLUCOSE (AUTOMATED)2020-03-01 20:42:00 Test Item Value Reference Range Interpretation Comments POCT GLU (test code = 9650960525) 231 mg/dL 70-110 H Lab Interpretation (test code = Abnormal 46724-1) [facility] SouthVITAMIN B12, [id number] 11:51:00 Test Item Value Reference Range Interpretation Comments VIT B12 (test code = 325 pg/mL 240-930 6431505624) ALYSSA (test code = ALYSSA) Biotin has been reported to cause a positive bias, interpret results relative to patient's use of biotin. Lab Interpretation (test Normal code = 68703-0) [facility] SouthFOLATE2020-04-16 11:49:00 Test Item Value Reference Range Interpretation Comments FOLATE SER (test code = >20.0 3-20 H Slig ht hemolysis 4328751985) Lab Interpretation (test Abnormal code = 44145-5) [facility] SouthPROCALCITONIN2020-04-16 10:49:00 Test Item Value Reference Range Interpretation Comments Procalcitonin (test 3.05 ng/mL <0.07 H code = 8015400899) ALYSSA (test code = ALYSSA) INTERPRETATION OF PROCALCITONIN RESULTS IN ADULTS >= 18 YEARS OF AGE Initiation and discontinuation of antibiotics on patients with suspected or confirmed Lower Respiratory Tract Infection in Adults >= 18 years of age. + +-------- --------+ + -----+|Procalcitonin |Interpretation ?|Antibiotic ? ? |Considerations ? |ng/mL ? | ?|recommendation | ? + +-------- --------+ + -----+| <0.1 ? | Bacterial ? ? ?| Strongly ? ? ?| ? | ?| infection very | discouraged ? | Overruling: ? | ?| unlikely ? ? ? | ? | ? Clinically unstable ? ? ? + +-------- --------+ + ? High risk for adverse ? ? | <0.25 ?| Bacterial ? ? ?| Discouraged ? | ? outcome ? | ?| infection ? ? ?| ? | ? SEE IMPORTANT NOTE ?| ?| unlikely ? ? ? | ? | ? + +-------- --------+ + -----+| >=0.25 ? ? ? | Bacterial ? ? ?| Encouraged ? ?| ? | ?| infection ? ? ?| ? | ? | ?| likely ? | ? | Consider treatment failure ?+ +------- ---------+ -+ if levels does not decrease | >0.5 ? | Bacterial ? ? ?| Strongly ? ? ?| appropriately ? | ?| infection very | encouraged ? ?| ? | ?| likely ? | ? | ? + +-------- --------+ + -----+ Discontinuation of antibiotics in high-acuity patients with suspected or confirmed sepsis in Adults >= 18 years of age. + +-------- --------+ + -----+|Procalcitonin |Interpretation ?|Antibiotic ? ? |Considerations ? |ng/mL ? | ?|recommendation | ? + +-------- --------+ + -----+| <0.25 ?| Bacterial ? ? ?| Strongly ? ? ?| ? | ?| infection very | discouraged ? | Overruling: ? | ?| unlikely ? ? ? | ? | ? Clinically unstable ? ? ? + +-------- --------+ + ? High risk for adverse ? ? | <0.5 or drop | Bacterial ? ? ?| Discouraged ? | ? outcome ? | >80% from ? ?| infection ? ? ?| ? | ? SEE IMPORTANT NOTE ?| highest PCT ?| unlikely ? ? ? | ? | ? | level ?| ?| ? | ? + +-------- --------+ + -----+| >=0.5 ?| Bacterial ? ? ?| Encouraged ? ?| ? | ?| infection ? ? ?| ? | ? | ?| likely ? | ? | Consider treatment failure ?+ +------- ---------+ -+ if levels does not decrease | >1.0 ? | Bacterial ? ? ?| Strongly ? ? ?| appropriately ? | ?| infection very | encouraged ? ?| ? | ?| likely ? | ? | ? + +-------- --------+ + -----+ Percentage of drop of Procalcitonin calculation for Discontinuation of antibiotics in high-acuity patients with suspected or confirmed sepsis in Adults >= 18 years of age. ? Procalcitonin highest{}-Procalcitonin current{}Delta Procalcitonin = x100% ? Procalcitonin current {} IMPORTANT NOTE: Procalcitonin may be elevated without bacterial infection by physiologic stress related to trauma, mckeon, chronic dialysis, metastatic cancer, surgery in the past seven days, malaria, some fungal infections, and some forms of vasculitis. The interpretation algorithm may not apply to patients with immunosuppression (equivalent of >10 mg of prednisone daily), HIV with CD4 cell count < 350 cells/mm3, active malignancy on systemic chemotherapy, solid organ transplant or hematopoietic stem cell transplantation, or hospital acquired pneumonia. Additionally, some clinical trials of procalcitonin have excluded patients with shock requiring vasopressor use, acute respiratory failure requiring mechanical ventilation, or those with known lung abscess/empyema. For further information please refer to:[email or web address] Lab Interpretation Abnormal (test code = 42459-2) [facility] SouthFLAKOKvng [id number] 09:58:00 Test Item Value Reference Range Interpretation Comments TROPONIN I (test 0.093 ng/mL See_Comment H [Automated code = 7368074641) message] The system which generated this result transmitted reference range : <=0.034. The reference range was not used to interpret this result as normal/abnormal . ALYSSA (test code = Equal or Less than ALYSSA) 0.034 ng/ml---Normal ?Note: Cardiac troponin begins to rise 3-4 hours after the onset of ischemia. Repeat in 4-6 hours if the sample was drawn within 3-4 hours of the onset of the symptom and found normal. Between 0.035 and 0.120 ng/mL--- Borderline. Questionable myocardial injury or necrosis ? ?Note: Serial measurement may be necessary to confirm or exclude the diagnosis of myocardial injury or necrosis; Clinical correlation (symptoms, EKGs, imaging studies, and others) required; Repeat in 4-6 hours if clinically indicated. ? Equal or Higher than 0.121 ng/mL---Abnormal. Myocardial Injury or Necrosis Likely ? Biotin has been reported to cause a negative bias, interpret results relative to patient's use of biotin. ? Lab Interpretation Abnormal (test code = 13717-1) [facility]N-TERMINAL [id number] 09:55:00 Test Item Value Reference Range Interpretation Comments NT-proBNP (test code 4450 pg/mL See_Comment H [Autom ated = 4815848414) message] The system which generated this result transmitted reference range : <=450. The reference range was not used to interpret this result as normal/abnormal . ALYSSA (test code = ALYSSA) Biotin has been reported to cause a negative bias, interpret results relative to patient's use of biotin. Lab Interpretation Abnormal (test code = 54537-6) [facility] Metabolic Panel (NA, K, CL, CO2, GLUCOSE, BUN, CREATININE, CA)2020-03-01 09:50:00 Test Item Value Reference Range Interpretation Comments NA (test code = 141 mmol/L 135-145 6512279406) K (test code = 3.5 mmol/L 3.5-5 5719573333) CL (test code = 105 mmol/L 98-108 8497852397) CO2 TOTAL (test code = 26 mmol/L 23-31 4656642442) AGAP (test code = 2-16 5292347911) BUN (test code = 13 mg/dL 7-23 4453769689) GLUCOSE (test code = 219 mg/dL 70-110 H 4115865466) CREATININE (test code = 1.01 mg/dL 0.6-1.25 5538342582) CALCIUM (test code = 8.7 mg/dL 8.6-10.6 4506410900) eGFR Calculation mL/min/1.73m2 (Non-) (test code = 8744975405) eGFR Calculation mL/min/1.73m2 () (test code = 2017467847) ALYSSA (test code = ALYSSA) Association of Glomerular Filtration Rate (GFR) and Staging of Kidney Disease* + --+ --+ ------+| GFR (mL/min/1.73 m2) ?| With Kidney Damage ?| ?Without Kidney Damage+ --------+ --------+ +| ?>90 ?| ?Stage one ?| ? Normal ?+ ---+ ---+ -------+| ?60-89 ?| ?Stage two ?| ? Decreased GFR ? + --+ --+ ------+| ?30-59 ?| ?Stage three ?| ? Stage three ? + --+ --+ ------+| ?15-29 ?| ?Stage four ? | ? Stage four ?+ ---+ ---+ -------+| ?<15 (or dialysis) ? ?| ?Stage five ? | ? Stage five ?+ ---+ ---+ -------+ *Each stage assumes the associated GFR level has been in effect for at least three months. ?Stages 1 to 5, with or without kidney disease, indicate chronic kidney disease. Notes: Determination of stages one and two (with eGFR >59mL/min/1.73 m2) requires estimation of kidney damage for at least three months as defined by structural or functional abnormalities of the kidney, manifested by either:Pathological abnormalities or Markers of kidney damage (including abnormalities in the composition of the blood or urine or abnormalities in imaging tests). Lab Interpretation Abnormal (test code = 80260-8) [facility] [id number] 09:50:00 Test Item Value Reference Range Interpretation Comments MAGNESIUM (test code = 1092189273) 1.9 mg/dL 1.7-2.4 Lab Interpretation (test code = Normal 32667-1) [facility] WITH [id number] 09:22:00 Test Item Value Reference Range Interpretation Comments WBC (test code = See_Comment [Automated 6690-2) message] The sy stem which generated this result transmitted reference range : 4.20 - 10.70 10*3/?L. The reference range was not used to interpret this result as normal/abnormal . RBC (test code = See_Comment L [Automated 789-8) message] The sy stem which generated this result transmitted reference range : 4.26 - 5.52 10*6/?L. The reference range was not used to interpret this result as normal/abnormal . HGB (test code = 13.0 g/dL 12.2-16.4 718-7) HCT (test code = 37.5 % 38.4-49.3 L 4544-3) MCV (test code = 89.9 fL 81.7-95.6 787-2) MCH (test code = 31.2 pg 26.1-32.7 785-6) MCHC (test code = 34.7 g/dL 31.2-35 786-4) RDW-SD (test code = 47.8 fL 38.5-51.6 21780-3) RDW-CV (test code = 14.8 % 12.1-15.4 788-0) PLT (test code = See_Comment L [Automated 777-3) message] The sy stem which generated this result transmitted reference range : 150 - 328 10*3/ ?L. The reference r corey was not used to interpret this result as normal/abnormal . MPV (test code = 9.9 fL 9.8-13 81073-1) NRBC/100 WBC (test See_Comment [Automat ed code = 2090923330) message] The system which generated this result transmitted reference range : 0.0 - 10.0 /100 WBCs. The refer ence range was not u sed to interpret th is result as normal/abnormal . NRBC x10^3 (test code <0.01 See_Comment [Auto mated = 3517657856) message] The s ystem which generated this result transmitted reference range : 10*3/?L. The reference range was not used to interpret this result as normal/abnormal . GRAN MAT (NEUT) % 66.0 % (test code = 770-8) IMM GRAN % (test code 0.30 % = 6348594177) LYMPH % (test code = 20.8 % 736-9) MONO % (test code = 9.5 % 5905-5) EOS % (test code = 2.8 % 713-8) BASO % (test code = 0.6 % 706-2) GRAN MAT x10^3(ANC) 4.44 10*3/uL 1.99-6.95 (test code = 9856313356) IMM GRAN x10^3 (test <0.03 0-0.06 code = 0158423253) LYMPH x10^3 (test code 1.40 10*3/uL 1.09-3.23 = 731-0) MONO x10^3 (test code 0.64 10*3/uL 0.36-1.02 = 742-7) EOS x10^3 (test code = 0.19 10*3/uL 0.06-0.53 711-2) BASO x10^3 (test code 0.04 10*3/uL 0.01-0.09 = 704-7) Lab Interpretation Abnormal (test code = 58199-6) [facility]YCOSYLATED HEMOGLOBIN (A1C)2020-03-01 06:49:00 Test Item Value Reference Interpretation Comments Range HGB A1C (test code = See_Comment H [Autom ated 4548-4) message] The system which generated this result transmitted reference range : 4.0 - 6.0 % NGSP. The reference range was not used to interpret this result as normal/abnormal . ALYSSA (test code = %A1C (NGSP) ALYSSA) Interpretation (ADA)4.8-5.6 ? ? Normal or (Non-Diabetic Range)5.7-6.4 ? ? Increased Risk (Pre-Diabetic)>6.5 ?Diabetes Indicated Lab Interpretation Abnormal (test code = 66836-3) [facility]URIC [id number] 06:25:00 Test Item Value Reference Range Interpretation Comments URIC ACID (test code = 2697454892) 2.3 mg/dL 3.6-8 L Lab Interpretation (test code = Abnormal 27265-4) [facility] SouthSEDIMENTATION [id number] 05:25:00 Test Item Value Reference Range Interpretation Comments ESR (test code = See_Comment H [Automated message] 3646494219) The system [employer] generated this result transmitted ref erence range: 0 - 10 m m/HR. The reference r corey was not used to interpret this result as normal/abnor mal. Lab Interpretation (test Abnormal code = 98953-4) [facility] SouthN-TERMINAL [id number] 04:07:00 Test Item Value Reference Range Interpretation Comments NT-proBNP (test code 4080 pg/mL See_Comment H [Autom ated = 4442068590) message] The system which generated this result transmitted reference range : <=450. The reference range was not used to interpret this result as normal/abnormal . ALYSSA (test code = ALYSSA) Biotin has been reported to cause a negative bias, interpret results relative to patient's use of biotin. Lab Interpretation Abnormal (test code = 03346-7) [facility]POCT GLUCOSE (AUTOMATED)2020-03-01 03:42:00 Test Item Value Reference Range Interpretation Comments POCT GLU (test code = 7307316961) 190 mg/dL 70-110 H Lab Interpretation (test code = Abnormal 68417-9) [facility] SouthTROPONIN [id number] 03:30:00 Test Item Value Reference Range Interpretation Comments TROPONIN I (test 0.098 ng/mL See_Comment H [Automated code = 8607555299) message] The system which generated this result transmitted reference range : <=0.034. The reference range was not used to interpret this result as normal/abnormal . ALYSSA (test code = Equal or Less than ALYSSA) 0.034 ng/ml---Normal ?Note: Cardiac troponin begins to rise 3-4 hours after the onset of ischemia. Repeat in 4-6 hours if the sample was drawn within 3-4 hours of the onset of the symptom and found normal. Between 0.035 and 0.120 ng/mL--- Borderline. Questionable myocardial injury or necrosis ? ?Note: Serial measurement may be necessary to confirm or exclude the diagnosis of myocardial injury or necrosis; Clinical correlation (symptoms, EKGs, imaging studies, and others) required; Repeat in 4-6 hours if clinically indicated. ? Equal or Higher than 0.121 ng/mL---Abnormal. Myocardial Injury or Necrosis Likely ? Biotin has been reported to cause a negative bias, interpret results relative to patient's use of biotin. ? Lab Interpretation Abnormal (test code = 06783-0) [facility] SouthHEPATIC FUNCTION PANEL (87883) (ALB,T.PRO,BILI T,BU/BC,ALT,AST,ALK PHOS)2020-03-01 03:24:00 Test Item Value Reference Range Interpretation Comments TOTAL BILI (test code = 9653243719) 2.2 mg/dL 0.1-1.1 H BILI UNCON (test code = 2506200821) 2.0 mg/dL 0.1-1.1 H BILI CONJ (test code = 8596052470) 0.0 mg/dL 0-0.3 T PROTEIN (test code = 1786415553) 6.7 g/dL 6.3-8.2 ALBUMIN (test code = 6578179171) 4.0 g/dL 3.5-5 ALK PHOS (test code = 2003078304) 48 U/L 34-122 ALTv (test code = 1742-6) 18 U/L 5-50 AST(SGOT) (test code = 5871306136) 57 U/L 13-40 H Lab Interpretation (test code = Abnormal 40824-1) [facility] SouthPhosphorus [id number] 03:17:00 Test Item Value Reference Range Interpretation Comments PHOSPHORUS (test code = 3.1 mg/dL 2.5-5 Slig ht hemolysis 2043428488) Lab Interpretation (test Normal code = 85733-7) [facility] SouthPROTHROMBIN TIME / [id number] 03:08:00 Test Item Value Reference Range Interpretation Comments PROTIME PATIENT (test See_Comment [Auto mated message] code = 5964-2) The system wh ich generated this result transmitted ref erence range: 12.0 - 1 4.7 Seconds. The re ference range was not u sed to interpret this result as normal/abnor mal. INR (test code = 6301-6) Nor mal INR <1.1; Warfarin Therap eutic range 2.0 to 3. 0 or 2.5 to 3.5, dep ending upon the indica tions. Lab Interpretation (test Normal code = 97675-6) [facility] SouthCREATINE [id number] 03:01:00 Test Item Value Reference Range Interpretation Comments CK (test code = 4681242575) 68 U/L 33-194 Lab Interpretation (test code = Normal 96874-5) [facility] [id number] 02:41:00 Test Item Value Reference Range Interpretation Comments URIC ACID (test code = 7023410304) 2.3 mg/dL 3.6-8 L Lab Interpretation (test code = Abnormal 87600-3) [facility] SouthTHYROID STIMULATING [id number] 02:26:00 Test Item Value Reference Range Interpretation Comments TSH (test code = See_Comment [Automated message] 9995418492) The system [employer] generated this result transmitted ref erence range: 0.45 - 4 .70 mIU/L. The refe rence range was not u sed to interpret this result as normal/abnor mal. Lab Interpretation (test Normal code = 56710-5) [facility]N-TERMINAL [id number] 02:04:00 Test Item Value Reference Range Interpretation Comments NT-proBNP (test code 4390 pg/mL See_Comment H [Autom ated = 1944498890) message] The system which generated this result transmitted reference range : <=450. The reference range was not used to interpret this result as normal/abnormal . ALYSSA (test code = ALYSSA) Biotin has been reported to cause a negative bias, interpret results relative to patient's use of biotin. Lab Interpretation Abnormal (test code = 51537-6) [facility] SouthMAGNESIUM2020-04-16 02:01:00 Test Item Value Reference Range Interpretation Comments MAGNESIUM (test code = 2513263098) 1.5 mg/dL 1.7-2.4 L Lab Interpretation (test code = Abnormal 54414-6) [facility] SouthLIPASE2020-04-16 00:22:00 Test Item Value Reference Range Interpretation Comments LIPASE (test code = 9765827037) 68 U/L 0-220 Lab Interpretation (test code = Normal 94873-3) [facility] SouthCORONAVIRUS COVID-19 [id number] 23:42:00 Test Item Value Reference Range Interpretation Comments SARS-CoV-2 (test code = Not Detected Not Detected 29318-2) ALYSSA (test code = ALYSSA) ID NOW COVID-19 Assay is an isothermal nucleic acid amplification test intended for the qualitative detection of nucleic acid from SARS-CoV-2 viral RNA in nasopharyngeal ([employer]) specimens. It is used under Emergency Use Authorization (EUA) by FDA. The limit of detection (LOD) of the assay is 125 Genome Equivalents/mL. A positive result is indicative of the presence of SARS-CoV-2 RNA. ?Clinical correlation with patient history and other diagnostic information is necessary to determine patient infection status. A negative (Not Detected) result does not preclude SARS-CoV-2 infection. Clinical correlation with patient history and other diagnostic information should be used in patient management decisions. Invalid: Please collect a new specimen for repeat patient testing if clinically indicated. Lab Interpretation Normal (test code = 33828-6) [facility] SouthXR CHEST 1 VW [id number] 23:26:02 No acute intrathoracic abnormality, specifically no radiographic findingsto suggest COVID-19 pneumonia. Disclaimer: Generally, the findings on chest imaging in COVID-19 are notspecific, and overlap with other infections, including influenza, H1N1,SARS and MERS. According to the Centers for Disease Control (CDC) and recent statement ofthe [place] [employer], viral testing remains the only specificmethod of diagnosis. Confirmation with the viral test is required, even ifradiologic findingsare suggestive of COVID-[address]. Preliminary Report Dictated by Resident: Radu Boo MD., have reviewed this study and agree with theabove report.PROCEDURE: CHEST, SINGLE VIEW CLINICAL INDICATION: 79 years Male presenting with chest pain/SOB COMPARISON: Chest radiographs 01/15/2020 FINDINGS: Lines/hardware: Lungs: Mild perivascular congestion is present. No focal consolidation,pleural effusion, or pneumothorax. Mediastinum: The cardiomediastinal silhouette is enlarged, unchanged.Calcifications of the aortic arch. Osseous structures: No acute bony abnormality. The electrodes of a spinalcord stimulating device overlie the mid thoracic spine. [facility], Radiant ResultsInft User - 02/29/2020 6:27 PM CDTPROCEDURE: CHEST, SINGLE VIEWCLINICAL INDICATION: 79 years Male presenting with chest pain/SOB COMPARISON: Chest radiographs 01/15/2020FINDINGS:Lines/hardware:Lungs: Mild perivascular congestion is present. No focal consolidation,pleural effusion, or pneumothorax.Mediastinum: The cardiomediastinal silhouette is enlarged, unchanged.Calcifications of the aortic arch.Osseous structures: No acute bony abnormality. The electrodes of a spinalcord stimulating device overliethe mid thoracic spine.IMPRESSIONNo acute intrathoracic abnormality, specifically no radiographic findingsto suggest COVID-19 pneumonia.Disclaimer: Generally, the findings on chest imaging in COVID-19 are notspecific, and overlap with other infections, including influenza, H1N1,SARS and MERS.Accordingto the Centers for Disease Control (CDC) and recent statement ofthe [place] [employer], viral testing remains the only specificmethod of diagnosis. Confirmation with the viral test is required, even ifradiologic findings are suggestive of COVID-[address]. Preliminary Report Dictated by Resident: Radu Boo MD., have reviewed this study and agree with theabovereport.[facility] [id number] 22:59:00 Test Item Value Reference Range Interpretation Comments TROPONIN I (test 0.071 ng/mL See_Comment H [Automated code = 5617825837) message] The system which generated this result transmitted reference range : <=0.034. The reference range was not used to interpret this result as normal/abnormal . ALYSSA (test code = Equal or Less than ALYSSA) 0.034 ng/ml---Normal ?Note: Cardiac troponin begins to rise 3-4 hours after the onset of ischemia. Repeat in 4-6 hours if the sample was drawn within 3-4 hours of the onset of the symptom and found normal. Between 0.035 and 0.120 ng/mL--- Borderline. Questionable myocardial injury or necrosis ? ?Note: Serial measurement may be necessary to confirm or exclude the diagnosis of myocardial injury or necrosis; Clinical correlation (symptoms, EKGs, imaging studies, and others) required; Repeat in 4-6 hours if clinically indicated. ? Equal or Higher than 0.121 ng/mL---Abnormal. Myocardial Injury or Necrosis Likely ? Biotin has been reported to cause a negative bias, interpret results relative to patient's use of biotin. ? Lab Interpretation Abnormal (test code = 65718-6) [facility] Metabolic Panel (NA, K, CL, CO2, GLUCOSE, BUN, CREATININE, CA)2020-02-29 22:48:00 Test Item Value Reference Range Interpretation Comments NA (test code = 141 mmol/L 135-145 6382837679) K (test code = 3.2 mmol/L 3.5-5 L 0042632221) CL (test code = 104 mmol/L 98-108 2086806503) CO2 TOTAL (test code = 25 mmol/L 23-31 2741981235) AGAP (test code = 2-16 3316553438) BUN (test code = 12 mg/dL 7-23 8885052275) GLUCOSE (test code = 250 mg/dL 70-110 H 6474172918) CREATININE (test code = 1.02 mg/dL 0.6-1.25 2712899107) CALCIUM (test code = 8.9 mg/dL 8.6-10.6 7778661453) eGFR Calculation mL/min/1.73m2 (Non-) (test code = 2507605439) eGFR Calculation mL/min/1.73m2 () (test code = 8854469133) ALYSSA (test code = ALYSSA) Association of Glomerular Filtration Rate (GFR) and Staging of Kidney Disease* + --+ --+ ------+| GFR (mL/min/1.73 m2) ?| With Kidney Damage ?| ?Without Kidney Damage+ --------+ --------+ +| ?>90 ?| ?Stage one ?| ? Normal ?+ ---+ ---+ -------+| ?60-89 ?| ?Stage two ?| ? Decreased GFR ? + --+ --+ ------+| ?30-59 ?| ?Stage three ?| ? Stage three ? + --+ --+ ------+| ?15-29 ?| ?Stage four ? | ? Stage four ?+ ---+ ---+ -------+| ?<15 (or dialysis) ? ?| ?Stage five ? | ? Stage five ?+ ---+ ---+ -------+ *Each stage assumes the associated GFR level has been in effect for at least three months. ?Stages 1 to 5, with or without kidney disease, indicate chronic kidney disease. Notes: Determination of stages one and two (with eGFR >59mL/min/1.73 m2) requires estimation of kidney damage for at least three months as defined by structural or functional abnormalities of the kidney, manifested by either:Pathological abnormalities or Markers of kidney damage (including abnormalities in the composition of the blood or urine or abnormalities in imaging tests). Lab Interpretation Abnormal (test code = 39251-6) [facility] WITH [id number] 22:41:00 Test Item Value Reference Range Interpretation Comments WBC (test code = See_Comment [Automated 6690-2) message] The sy stem which generated this result transmitted reference range : 4.20 - 10.70 10*3/?L. The reference range was not used to interpret this result as normal/abnormal . RBC (test code = See_Comment L [Automated 789-8) message] The sy stem which generated this result transmitted reference range : 4.26 - 5.52 10*6/?L. The reference range was not used to interpret this result as normal/abnormal . HGB (test code = 13.3 g/dL 12.2-16.4 718-7) HCT (test code = 37.7 % 38.4-49.3 L 4544-3) MCV (test code = 89.5 fL 81.7-95.6 787-2) MCH (test code = 31.6 pg 26.1-32.7 785-6) MCHC (test code = 35.3 g/dL 31.2-35 H 786-4) RDW-SD (test code = 46.6 fL 38.5-51.6 35533-8) RDW-CV (test code = 14.6 % 12.1-15.4 788-0) PLT (test code = See_Comment [Automated 777-3) message] The sy stem which generated this result transmitted reference range : 150 - 328 10*3/ ?L. The reference r corey was not used to interpret this result as normal/abnormal . MPV (test code = 9.7 fL 9.8-13 L 25507-1) NRBC/100 WBC (test See_Comment [Automat ed code = 0259594770) message] The system which generated this result transmitted reference range : 0.0 - 10.0 /100 WBCs. The refer ence range was not u sed to interpret th is result as normal/abnormal . NRBC x10^3 (test code <0.01 See_Comment [Auto mated = 8498884193) message] The s ystem which generated this result transmitted reference range : 10*3/?L. The reference range was not used to interpret this result as normal/abnormal . GRAN MAT (NEUT) % 68.6 % (test code = 770-8) IMM GRAN % (test code 0.30 % = 1043867254) LYMPH % (test code = 18.6 % 736-9) MONO % (test code = 10.1 % 5905-5) EOS % (test code = 1.8 % 713-8) BASO % (test code = 0.6 % 706-2) GRAN MAT x10^3(ANC) 4.29 10*3/uL 1.99-6.95 (test code = 0275727120) IMM GRAN x10^3 (test <0.03 0-0.06 code = 5483148195) LYMPH x10^3 (test code 1.16 10*3/uL 1.09-3.23 = 731-0) MONO x10^3 (test code 0.63 10*3/uL 0.36-1.02 = 742-7) EOS x10^3 (test code = 0.11 10*3/uL 0.06-0.53 711-2) BASO x10^3 (test code 0.04 10*3/uL 0.01-0.09 = 704-7) Lab Interpretation Abnormal (test code = 05336-0) [facility] SouthLanyic Acid Whole [id number] 22:38:00 Test Item Value Reference Range Interpretation Comments LACTIC ACID (test code = 1.88 mmol/L 0.3-2.6 6016625362) [facility]PO[facility] GLUCOSE (AUTOMATED)2020-01-17 18:18:00 Test Item Value Reference Range Interpretation Comments POCT GLU (test code = 3974656674) 290 mg/dL 70-110 H Lab Interpretation (test code = Abnormal 42389-8) [facility]TROPONIN [id number] 18:01:00 Test Item Value Reference Range Interpretation Comments TROPONIN I (test 0.065 ng/mL See_Comment H [Automated code = 6572970263) message] The system which generated this result transmitted reference range : <=0.034. The reference range was not used to interpret this result as normal/abnormal . ALYSSA (test code = Equal or Less than ALYSSA) 0.034 ng/ml---Normal ?Note: Cardiac troponin begins to rise 3-4 hours after the onset of ischemia. Repeat in 4-6 hours if the sample was drawn within 3-4 hours of the onset of the symptom and found normal. Between 0.035 and 0.120 ng/mL--- Borderline. Questionable myocardial injury or necrosis ? ?Note: Serial measurement may be necessary to confirm or exclude the diagnosis of myocardial injury or necrosis; Clinical correlation (symptoms, EKGs, imaging studies, and others) required; Repeat in 4-6 hours if clinically indicated. ? Equal or Higher than 0.121 ng/mL---Abnormal. Myocardial Injury or Necrosis Likely ? Biotin has been reported to cause a negative bias, interpret results relative to patient's use of biotin. ? Lab Interpretation Abnormal (test code = 19677-9) [facility]aPTT2020-03-03 17:10:00 Test Item Value Reference Range Interpretation Comments APTT Patient (test See_Comment H [Automat ed code = 3173-2) message] The system which generated this result transmitted reference range : 23 - 38 Seconds . The reference range was not used to interpr et this result as normal/abnormal . ALYSSA (test code = ALYSSA) The [facility] patient population mean normal value for aPTT is 30 seconds. Lab Interpretation Abnormal (test code = 03969-5) [facility]OMATED)2020-01-17 11:59:00 Test Item Value Reference Range Interpretation Comments POCT GLU (test code = 9118081985) 185 mg/dL 70-110 H Lab Interpretation (test code = Abnormal 65714-4) [facility]TROPONIN [id number] 11:23:00 Test Item Value Reference Range Interpretation Comments TROPONIN I (test 0.073 ng/mL See_Comment H [Automated code = 1245118987) message] The system which generated this result transmitted reference range : <=0.034. The reference range was not used to interpret this result as normal/abnormal . ALYSSA (test code = Equal or Less than ALYSSA) 0.034 ng/ml---Normal ?Note: Cardiac troponin begins to rise 3-4 hours after the onset of ischemia. Repeat in 4-6 hours if the sample was drawn within 3-4 hours of the onset of the symptom and found normal. Between 0.035 and 0.120 ng/mL--- Borderline. Questionable myocardial injury or necrosis ? ?Note: Serial measurement may be necessary to confirm or exclude the diagnosis of myocardial injury or necrosis; Clinical correlation (symptoms, EKGs, imaging studies, and others) required; Repeat in 4-6 hours if clinically indicated. ? Equal or Higher than 0.121 ng/mL---Abnormal. Myocardial Injury or Necrosis Likely ? Biotin has been reported to cause a negative bias, interpret results relative to patient's use of biotin. ? Lab Interpretation Abnormal (test code = 51738-9) [facility] [place] (NA, K, CL, CO2, GLUCOSE, BUN, CREATININE, CA)2020-01-17 11:16:00 Test Item Value Reference Range Interpretation Comments NA (test code = 136 mmol/L 135-145 1451944273) K (test code = 3.3 mmol/L 3.5-5 L 2028375675) CL (test code = 101 mmol/L 98-108 1928602843) CO2 TOTAL (test code = 26 mmol/L 23-31 3567798288) AGAP (test code = 2-16 4563838320) BUN (test code = 19 mg/dL 7-23 2661892527) GLUCOSE (test code = 227 mg/dL 70-110 H 1636474427) CREATININE (test code = 1.33 mg/dL 0.6-1.25 H 0610077436) CALCIUM (test code = 9.1 mg/dL 8.6-10.6 6873939351) eGFR Calculation mL/min/1.73m2 (Non-) (test code = 9924672840) eGFR Calculation mL/min/1.73m2 () (test code = 5739116120) ALYSSA (test code = ALYSSA) Association of Glomerular Filtration Rate (GFR) and Staging of Kidney Disease* + --+ --+ ------+| GFR (mL/min/1.73 m2) ?| With Kidney Damage ?| ?Without Kidney Damage+ --------+ --------+ +| ?>90 ?| ?Stage one ?| ? Normal ?+ ---+ ---+ -------+| ?60-89 ?| ?Stage two ?| ? Decreased GFR ? + --+ --+ ------+| ?30-59 ?| ?Stage three ?| ? Stage three ? + --+ --+ ------+| ?15-29 ?| ?Stage four ? | ? Stage four ?+ ---+ ---+ -------+| ?<15 (or dialysis) ? ?| ?Stage five ? | ? Stage five ?+ ---+ ---+ -------+ *Each stage assumes the associated GFR level has been in effect for at least three months. ?Stages 1 to 5, with or without kidney disease, indicate chronic kidney disease. Notes: Determination of stages one and two (with eGFR >59mL/min/1.73 m2) requires estimation of kidney damage for at least three months as defined by structural or functional abnormalities of the kidney, manifested by either:Pathological abnormalities or Markers of kidney damage (including abnormalities in the composition of the blood or urine or abnormalities in imaging tests). Lab Interpretation Abnormal (test code = 81530-5) [facility]aPTT2020-[facility]-03 11:00:00 Test Item Value Reference Range Interpretation Comments APTT Patient (test See_Comment H [Automat ed code = 3173-2) message] The system which generated this result transmitted reference range : 23 - 38 Seconds . The reference range was not used to interpr et this result as normal/abnormal . ALYSSA (test code = ALYSSA) The [facility] patient population mean normal value for aPTT is 30 seconds. Lab Interpretation Abnormal (test code = 67826-0) [facility] WITH [id number] 10:43:00 Test Item Value Reference Range Interpretation Comments WBC (test code = See_Comment [Automated message] 6690-2) The system [employer] generated this result transmitted ref erence range: 4.20 - 1 0.70 10*3/?L. The re ference range was not u sed to interpret this result as normal/abnor mal. RBC (test code = See_Comment [Automated message] 799-8) The system [employer] generated this result transmitted ref erence range: 4.26 - 5 .52 10*6/?L. The re ference range was not u sed to interpret this result as normal/abnor mal. HGB (test code = 14.2 g/dL 12.2-16.4 718-7) HCT (test code = 41.2 % 38.4-49.3 4544-3) MCV (test code = 88.2 fL 81.7-95.6 787-2) MCH (test code = 30.4 pg 26.1-32.7 785-6) MCHC (test code = 34.5 g/dL 31.2-35 786-4) RDW-SD (test code 41.5 fL 38.5-51.6 = 77778-9) RDW-CV (test code 12.8 % 12.1-15.4 = 788-0) PLT (test code = See_Comment [Automated message] 867-3) The system [employer] generated this result transmitted ref erence range: 150 - 32 8 10*3/?L. The re ference range was not u sed to interpret this result as normal/abnor mal. MPV (test code = 10.7 fL 9.8-13 05119-4) NRBC/100 WBC (test See_Comment [Automat ed message] code = 6742908775) The syste [employer] which generated this result transmitted ref erence range: 0.0 - 10 .0 /100 WBCs. The refer ence range was not u sed to interpret this result as normal/abnor mal. NRBC x10^3 (test <0.01 See_Comment [Automated message] code = 7439034313) The syste m which generated this result transmitted ref erence range: 10*3/?L. The reference range was not used to interpr et this result as normal/abnormal . GRAN MAT (NEUT) % 56.1 % (test code = 770-8) IMM GRAN % (test 0.30 % code = 6377784042) LYMPH % (test code 29.5 % = 736-9) MONO % (test code 9.9 % = 5905-5) EOS % (test code = 3.3 % 713-8) BASO % (test code 0.9 % = 706-2) GRAN MAT 3.73 10*3/uL 1.99-6.95 x10^3(ANC) (test code = 5267825822) IMM GRAN x10^3 <0.03 0-0.06 (test code = 5618515470) LYMPH x10^3 (test 1.96 10*3/uL 1.09-3.23 code = 731-0) MONO x10^3 (test 0.66 10*3/uL 0.36-1.02 code = 742-7) EOS x10^3 (test 0.22 10*3/uL 0.06-0.53 code = 711-2) BASO x10^3 (test 0.06 10*3/uL 0.01-0.09 code = 704-7) [facility] GLUCOSE (AUTOMATED)2020-01-17 01:49:00 Test Item Value Reference Range Interpretation Comments POCT GLU (test code = 4383887491) 305 mg/dL 70-110 H Lab Interpretation (test code = Abnormal 52008-8) [facility] GLUCOSE (AUTOMATED)2020-01-17 00:01:00 Test Item Value Reference Range Interpretation Comments POCT GLU (test code = 5148371693) 271 mg/dL 70-110 H Lab Interpretation (test code = Abnormal 08112-8) [facility] 22:23[facility]00 Test Item Value Reference Range Interpretation Comments APTT Patient (test See_Comment H [Automat ed code = 3173-2) message] The system which generated this result transmitted reference range : 23 - 38 Seconds . The reference range was not used to interpr et this result as normal/abnormal . ALYSSA (test code = ALYSSA) The [facility] patient population mean normal value for aPTT is 30 seconds. Lab Interpretation Abnormal (test code = 79014-6) [facility] [id number] 21:22:00 Test Item Value Reference Range Interpretation Comments TROPONIN I (test 0.061 ng/mL See_Comment H [Automated code = 7294779890) message] The system which generated this result transmitted reference range : <=0.034. The reference range was not used to interpret this result as normal/abnormal . ALYSSA (test code = Equal or Less than ALYSSA) 0.034 ng/ml---Normal ?Note: Cardiac troponin begins to rise 3-4 hours after the onset of ischemia. Repeat in 4-6 hours if the sample was drawn within 3-4 hours of the onset of the symptom and found normal. Between 0.035 and 0.120 ng/mL--- Borderline. Questionable myocardial injury or necrosis ? ?Note: Serial measurement may be necessary to confirm or exclude the diagnosis of myocardial injury or necrosis; Clinical correlation (symptoms, EKGs, imaging studies, and others) required; Repeat in 4-6 hours if clinically indicated. ? Equal or Higher than 0.121 ng/mL---Abnormal. Myocardial Injury or Necrosis Likely ? Biotin has been reported to cause a negative bias, interpret results relative to patient's use of biotin. ? Lab Interpretation Abnormal (test code = 19178-3) [facility]2020-01-16 17:37:00 Test Item Value Reference Range Interpretation Comments POCT GLU (test code = 0750701252) 271 mg/dL 70-110 H Lab Interpretation (test code = Abnormal 27054-1) [facility] 12:47:00 Test Item Value Reference Range Interpretation Comments APTT Patient (test See_Comment HH [Automat ed code = 3173-2) message] The system which generated this result transmitted reference range : 23 - 38 Seconds . The reference range was not used to interpr et this result as normal/abnormal . ALYSSA (test code = ALYSSA) The [facility] patient population mean normal value for aPTT is 30 seconds. Lab Interpretation Abnormal (test code = 61604-3) [facility] [id number] 12:35:00 Test Item Value Reference Range Interpretation Comments TROPONIN I (test 0.074 ng/mL See_Comment H [Automated code = 3749476572) message] The system which generated this result transmitted reference range : <=0.034. The reference range was not used to interpret this result as normal/abnormal . ALYSSA (test code = Equal or Less than ALYSSA) 0.034 ng/ml---Normal ?Note: Cardiac troponin begins to rise 3-4 hours after the onset of ischemia. Repeat in 4-6 hours if the sample was drawn within 3-4 hours of the onset of the symptom and found normal. Between 0.035 and 0.120 ng/mL--- Borderline. Questionable myocardial injury or necrosis ? ?Note: Serial measurement may be necessary to confirm or exclude the diagnosis of myocardial injury or necrosis; Clinical correlation (symptoms, EKGs, imaging studies, and others) required; Repeat in 4-6 hours if clinically indicated. ? Equal or Higher than 0.121 ng/mL---Abnormal. Myocardial Injury or Necrosis Likely ? Biotin has been reported to cause a negative bias, interpret results relative to patient's use of biotin. ? Lab Interpretation Abnormal (test code = 91144-5) [facility]IPID PANEL (37943)(TOTAL CHOLESTEROL, TRIGLYCERIDES, HDL)2020-01-16 12:23:00 Test Item Value Reference Range Interpretation Comments CHOL (test code = 95 mg/dL 120-200 L 3417999144) HDL (test code = 44 mg/dL >40 2383055811) HDLC RATIO (test code = See_Comment [Au tomated message] 6911682305) The system [employer] generated this result transmitted ref erence range: <=5.0. T he reference range was not used to int erpret this result as normal/abnormal . TRIG (test code = 89 mg/dL 30-170 2705665357) LDL CHOL (test code = 33 mg/dL See_Comment [Auto mated message] 43742-4) The system [employer] generated this result transmitted ref erence range: <=160. T he reference range was not used to int erpret this result as normal/abnormal . VLDL (test code = 18 mg/dL 5-60 8258267500) Lab Interpretation (test Abnormal code = 57999-1) [facility]cosylated Hemoglobin (A1C)2020-01-16 09:03:00 Test Item Value Reference Interpretation Comments Range HGB A1C (test code = See_Comment H [Autom ated 3718-4) message] The system which generated this result transmitted reference range : 4.0 - 6.0 % NGSP. The reference range was not used to interpret this result as normal/abnormal . ALYSSA (test code = %A1C (NGSP) ALYSSA) Interpretation (ADA)4.8-5.6 ? ? Normal or (Non-Diabetic Range)5.7-6.4 ? ? Increased Risk (Pre-Diabetic)>6.5 ?Diabetes Indicated Lab Interpretation Abnormal (test code = 84252-0) [facility]Critical [id number] 05:48:18NeCharanjit epps MD ? ? 01/15/2020 11:48 PMCritical CarePerformed by: Charanjit Heck MDAuthorized by: Charanjit Heck MD Critical care provider statement: ?Critical care time (minutes): ?45 ?Critical care was necessary to treat or prevent imminent or life-threatening deterioration of the following conditions: ?Cardiac failure ?Critical care was time spent personally by me on the following activities: ?Blood draw for specimens, development of treatment plan with patient or surrogate, discussions with consultants, evaluation of patient's response to treatment, ordering and performing treatments and interventions, ordering and review of laboratory studies, pulse oximetry, ordering and review of radiographic studies, re-evaluation of patient's condition, review of old charts and examination of patientUnTexas Health [facility] MoundProthrombin Time (PT) / [id number] 05:28:00 Test Item Value Reference Range Interpretation Comments PROTIME PATIENT (test See_Comment [Auto mated message] code = 5964-2) The system wh ich generated this result transmitted ref erence range: 12.0 - 1 4.7 Seconds. The re ference range was not u sed to interpret this result as normal/abnor mal. INR (test code = 6301-6) Nor mal INR <1.1; Warfarin Therap eutic range 2.0 to 3. 0 or 2.5 to 3.5, dep ending upon the indica tions. Lab Interpretation (test Normal code = 72379-4) [facility]2020-[facility]-02 05:27:00 Test Item Value Reference Range Interpretation Comments APTT Patient (test See_Comment [Automat ed code = 3173-2) message] The system which generated this result transmitted reference range : 23 - 38 Seconds . The reference range was not used to interpr et this result as normal/abnormal . ALYSSA (test code = ALYSSA) The [facility] patient population mean normal value for aPTT is 30 seconds. Lab Interpretation Normal (test code = 40097-4) [facility] SouthTroponin [id number] 05:11:00 Test Item Value Reference Range Interpretation Comments TROPONIN I (test 0.075 ng/mL See_Comment H [Automated code = 7655024924) message] The system which generated this result transmitted reference range : <=0.034. The reference range was not used to interpret this result as normal/abnormal . ALYSSA (test code = Equal or Less than ALYSSA) 0.034 ng/ml---Normal ?Note: Cardiac troponin begins to rise 3-4 hours after the onset of ischemia. Repeat in 4-6 hours if the sample was drawn within 3-4 hours of the onset of the symptom and found normal. Between 0.035 and 0.120 ng/mL--- Borderline. Questionable myocardial injury or necrosis ? ?Note: Serial measurement may be necessary to confirm or exclude the diagnosis of myocardial injury or necrosis; Clinical correlation (symptoms, EKGs, imaging studies, and others) required; Repeat in 4-6 hours if clinically indicated. ? Equal or Higher than 0.121 ng/mL---Abnormal. Myocardial Injury or Necrosis Likely ? Biotin has been reported to cause a negative bias, interpret results relative to patient's use of biotin. ? Lab Interpretation Abnormal (test code = 78988-3) [facility] SouthN-TERMINAL [id number] 05:08:00 Test Item Value Reference Range Interpretation Comments NT-proBNP (test code 896 pg/mL See_Comment H [Autom ated = 4852870196) message] The system which generated this result transmitted reference range : <=450. The reference range was not used to interpret this result as normal/abnormal . ALYSSA (test code = ALYSSA) Biotin has been reported to cause a negative bias, interpret results relative to patient's use of biotin. Lab Interpretation Abnormal (test code = 83932-8) [facility] [place] [facility] Panel (NA, K, CL, CO2, GLUCOSE, BUN, CREATININE, CA)2020-01-16 04:59:00 Test Item Value Reference Range Interpretation Comments NA (test code = 136 mmol/L 135-145 8997428591) K (test code = 4.0 mmol/L 3.5-5 4834447998) CL (test code = 101 mmol/L 98-108 0131898930) CO2 TOTAL (test code = 27 mmol/L 23-31 7988009536) AGAP (test code = 2-16 8578897828) BUN (test code = 17 mg/dL 7-23 6502029483) GLUCOSE (test code = 445 mg/dL 70-110 H 1776717238) CREATININE (test code = 1.29 mg/dL 0.6-1.25 H 9294872978) CALCIUM (test code = 8.8 mg/dL 8.6-10.6 9524432396) eGFR Calculation mL/min/1.73m2 (Non-) (test code = 8921600146) eGFR Calculation mL/min/1.73m2 () (test code = 6029854006) ALYSSA (test code = ALYSSA) Association of Glomerular Filtration Rate (GFR) and Staging of Kidney Disease* + --+ --+ ------+| GFR (mL/min/1.73 m2) ?| With Kidney Damage ?| ?Without Kidney Damage+ --------+ --------+ +| ?>90 ?| ?Stage one ?| ? Normal ?+ ---+ ---+ -------+| ?60-89 ?| ?Stage two ?| ? Decreased GFR ? + --+ --+ ------+| ?30-59 ?| ?Stage three ?| ? Stage three ? + --+ --+ ------+| ?15-29 ?| ?Stage four ? | ? Stage four ?+ ---+ ---+ -------+| ?<15 (or dialysis) ? ?| ?Stage five ? | ? Stage five ?+ ---+ ---+ -------+ *Each stage assumes the associated GFR level has been in effect for at least three months. ?Stages 1 to 5, with or without kidney disease, indicate chronic kidney disease. Notes: Determination of stages one and two (with eGFR >59mL/min/1.73 m2) requires estimation of kidney damage for at least three months as defined by structural or functional abnormalities of the kidney, manifested by either:Pathological abnormalities or Markers of kidney damage (including abnormalities in the composition of the blood or urine or abnormalities in imaging tests). Lab Interpretation Abnormal (test code = 62692-8) [facility]atic Function Panel (ALB, T.PRO, BILI T, BU/BC, ALT, AST, ALK PHOS)2020-01-16 04:59:00 Test Item Value Reference Range Interpretation Comments TOTAL BILI (test code = 9482157704) 1.3 mg/dL 0.1-1.1 H BILI UNCON (test code = 0295586142) 1.1 mg/dL 0.1-1.1 BILI CONJ (test code = 5346119496) 0.0 mg/dL 0-0.3 T PROTEIN (test code = 5413100893) 6.3 g/dL 6.3-8.2 ALBUMIN (test code = 7637282250) 3.9 g/dL 3.5-5 ALK PHOS (test code = 7158506577) 67 U/L 34-122 ALTv (test code = 1742-6) 15 U/L 5-50 AST(SGOT) (test code = 6895910207) 23 U/L 13-40 Lab Interpretation (test code = Abnormal 57712-5) [facility] 1 [id number] 04:54:13Impression: Moderate cardiomegaly without acute pulmonary process. RL: 460 AFC: [id number] Indication: Chest pain Comparison: None available Findings: Single AP view of the chest. The cardiopericardial silhouette ismoderately enlarged. The lungs are clear bilaterally. The visualized bonythorax is intact. A thoracic neurostimulator device is in place. [facility], Radiant Results Inft User - 01/15/2020 10:55 PM CSTIndication: Chest painComparison: None availableFindings: Single AP view of the chest. The cardiopericardial silhouette ismoderately enlarged. The lungs are clear bilaterally. The visualized bonythorax is intact. A thoracic neurostimulator device is in place.IMPRESSIONImpression:Moderate cardiomegaly without acute pulmonary process.RL: 460AFC: [id number] signed by Esperanza Rosado MD, PhD at 01/15/2020 10:54 PMUnBox [facility] WITH [id number] 04:51:00 Test Item Value Reference Range Interpretation Comments WBC (test code = See_Comment [Automated 3190-2) message] The sy stem which generated this result transmitted reference range : 4.20 - 10.70 10*3/?L. The reference range was not used to interpret this result as normal/abnormal . RBC (test code = See_Comment L [Automated 029-8) message] The sy stem which generated this result transmitted reference range : 4.26 - 5.52 10*6/?L. The reference range was not used to interpret this result as normal/abnormal . HGB (test code = 13.0 g/dL 12.2-16.4 718-7) HCT (test code = 37.0 % 38.4-49.3 L 4544-3) MCV (test code = 87.9 fL 81.7-95.6 787-2) MCH (test code = 30.9 pg 26.1-32.7 785-6) MCHC (test code = 35.1 g/dL 31.2-35 H 786-4) RDW-SD (test code = 40.7 fL 38.5-51.6 60487-8) RDW-CV (test code = 12.8 % 12.1-15.4 788-0) PLT (test code = See_Comment L [Automated 777-3) message] The sy stem which generated this result transmitted reference range : 150 - 328 10*3/ ?L. The reference r corey was not used to interpret this result as normal/abnormal . MPV (test code = 10.6 fL 9.8-13 67291-2) IPF % (test code = 2.8 % 1.2-10.7 Platelet count 9473151608) measured by fluorescence method. NRBC/100 WBC (test See_Comment [Automat ed code = 0886908401) message] The system which generated this result transmitted reference range : 0.0 - 10.0 /100 WBCs. The refer ence range was not u sed to interpret th is result as normal/abnormal . NRBC x10^3 (test code <0.01 See_Comment [Auto mated = 3986630880) message] The s ystem which generated this result transmitted reference range : 10*3/?L. The reference range was not used to interpret this result as normal/abnormal . GRAN MAT (NEUT) % 56.0 % (test code = 770-8) IMM GRAN % (test code 0.20 % = 6189978950) LYMPH % (test code = 30.5 % 736-9) MONO % (test code = 9.6 % 5905-5) EOS % (test code = 2.8 % 713-8) BASO % (test code = 0.9 % 706-2) GRAN MAT x10^3(ANC) 2.98 10*3/uL 1.99-6.95 (test code = 5232273406) IMM GRAN x10^3 (test <0.03 0-0.06 code = 1685595948) LYMPH x10^3 (test code 1.62 10*3/uL 1.09-3.23 = 731-0) MONO x10^3 (test code 0.51 10*3/uL 0.36-1.02 = 742-7) EOS x10^3 (test code = 0.15 10*3/uL 0.06-0.53 711-2) BASO x10^3 (test code 0.05 10*3/uL 0.01-0.09 = 704-7) Lab Interpretation Abnormal (test code = 96377-4) [facility]"
[2021-10-25 02:14] LABS: Absolute Lymphocytes (CBC) 1.7 K/uL (0.7-4.9); Hematocrit 37.7 % (39.6-49.0); Lymphocytes % 28.9 % (15.3-44.8); MPV 8.2 fL (7.6-11.3); RBC Red Blood Cell Count 3.97 M/uL (4.33-5.43)
[2021-10-25 02:16] LABS: Protime INR 0.94
--- NOTE | 2021-10-25 02:38 | P.HP ---
Certification for Inpatient Patient admitted to: Observation With expected LOS: <2 Midnights Patient will require the following post-hospital care: None Practitioner: I am a practitioner with admitting privileges, knowledge of patient current condition, hospital course, and medical plan of care. Services: Services provided to patient in accordance with Admission requirements found in Title 42 Section 412.3 of the Code of Federal Regulations <Dayo Reyna - Last Filed: 10/25/21 03:24> Patient History Date of Service: 10/25/21 Primary Care Provider: Dr. Briscoe Reason for admission: Chest pain History of Present Illness: 81-year-old male with history of CAD, CHFunknown EF, diabetes mellitus type 2, hypertension, CKD, hyperlipidemia presents emergency department for chest pain. Patient reports ongoing intermittent chest pain over the course of last 1 month but significantly worse tonight, patient also reports dyspnea on exertion over the course of last month or so. Patient's tire tester is Dr. Costello, patient not sure when his last heart catheterization was reports "a few years ago". Patient has not had any formal cardiology evaluation at this facility in the past including echocardiogram or cardiac catheterization for review. Patient poor historian. Patient was evaluated in the emergency department EKG without STEMI, initial troponin negative chest x-ray unremarkable ED provider wishes to admit for further evaluation and management/ACS rule out. - Past Medical/Surgical History Diabetic: Yes -: CHFunknown EF -: HTN -: DM IDDM -: Heart Stents -: Solitary kidney -: Chronic renal failure -: CAD -: stents Psychosocial/ Personal History: Patient is , lives at home alone - Family History Father -: Heart disease Notes: [place] - Social History Smoking Status: Former smoker Alcohol use: No CD- Drugs: No Caffeine use: Yes Place of Residence: Home <Dayo Reyna - Last Filed: 10/25/21 03:24> Date of Service: 10/25/21 <Gadiel Anderson - Last Filed: 10/25/21 12:47> Allergies No Known Allergies Allergy (Verified 03/10/20 01:08) Home Medications: Aspirin 1 tab PO DAILY 03/10/20 Atorvastatin Calcium 1 tab PO BEDTIME 03/10/20 Insulin Glargine Human [Lantus*] 10 unit SQ BEDTIME 03/10/20 Potassium Chloride [K-Dur] 10 meq PO DAILY #30 tab.er.prt 03/11/20 Donepezil HCl [Aricept] 5 mg PO DAILY AT SUPPER 03/17/20 Furosemide [Lasix] 20 mg PO DAILY AT SUPPER 03/17/20 Isosorbide Mononitrate [Isosorbide Mononitrate ER] 1.5 tab PO DAILY 09/24/20 Lisinopril [Zestril] 5 mg PO DAILY 09/24/20 Sitagliptin Phosphate [Januvia] 50 mg PO DAILY 09/24/20 Review of Systems 10-point ROS is otherwise unremarkable Respiratory: SOB with Excertion Cardiovascular: Chest Pain <Dayo Reyna - Last Filed: 10/25/21 03:24> Physical Examination - Physical Exam General: Alert, In no apparent distress, Oriented x3 HEENT: Atraumatic, PERRLA, Mucous membr. moist/pink, EOMI, Sclerae nonicteric Neck: Supple, 2+ carotid pulse no bruit, No LAD, Without JVD or thyroid abnormality Respiratory: Clear to auscultation bilaterally, Normal air movement Cardiovascular: Regular rate/rhythm, Normal S1 S2 Capillary refill: <2 Seconds Gastrointestinal: Normal bowel sounds, No tenderness Musculoskeletal: No tenderness Integumentary: No rashes Neurological: Normal speech, Normal strength at 5/5 x4 extr, Normal tone, Normal affect - Studies Laboratory Data (last 24 hrs) 10/25/21 01:59: PT 10.8, INR 0.94 10/25/21 01:59: WBC 5.80, Hgb 13.0 L, Hct 37.7 L, Plt Count 188 <Dayo Reyna - Last Filed: 10/25/21 03:24> - Studies Laboratory Data (last 24 hrs) 10/25/21 02:54: Sodium 141, Potassium 4.4, BUN 22 H, Creatinine 1.45 H, Glucose 172 H, Magnesium 1.9, Total Bilirubin 0.5, AST 14 L, ALT 19, Alkaline Phosphatase 46 10/25/21 01:59: PT 10.8, INR 0.94 10/25/21 01:59: WBC 5.80, Hgb 13.0 L, Hct 37.7 L, Plt Count 188 <Gadiel Anderson - Last Filed: 10/25/21 12:47> Assessment and Plan - Plan Assessment: Chest pain rule out ACShistory of CAD/CHFunknown EF Diabetes mellitus type 2 CKD III Hypertension Hyperlipidemia Plan: Chest pain rule out ACShistory of CAD/CHFunknown EF: Monitor on telemetry, trend troponins. Cardiology consulted. Patient was seen last year for similar complaint at that time heart catheterization was deferred due to risk for renal injury. Patient denies recent cardiac catheterization, will obtain echocardiogram to evaluate history of CHF. appreciate additional input from cardiology Diabetes mellitus type 2: [facility] Accu-Chek, sliding scale insulin therapy. A1c with morning labs. CKD III: Stable from baseline, monitor daily labs, consult nephrology Dr. Briscoe as necessary. Hypertension: Home medications continued Hyperlipidemia: Home medications continued DVT PPX: Heparin Code status: Full Discharge Plan: Home Plan to discharge in: 24 Hours - Advance Directives Does patient have a Living Will: Yes Does patient have a Durable POA for Healthcare: Yes - Code Status/Comfort Care Code Status Assessed: Yes (Full code) Critical Care: No Time Spent Managing Pts Care (In Minutes): 55 <Dayo Reyna - Last Filed: 10/25/21 03:24> - Plan Patient seen on rounds this morning, reports some continued slight chest pain. Troponin up to 0.04 Denies shortness of breath, states he has had 2 MIs in the past Currently n.p.o., awaiting cardiology evaluation/further recommendations. Echocardiogram ordered <Gadiel Anderson - Last Filed: 10/25/21 12:47>
--- NOTE | 2021-10-25 03:16 | EDPHYS ---
Physician Documentation [facility] Name: Demetrius Sarmiento Age: 81 yrs Sex: Male : 1940 Arrival Date: 10/25/2021 Time: 01:54 Bed 5 Private MD: ED Physician Isaias Anderson HPI: 10/25 01:59 This 81 yrs old Male presents to ER via Unassigned with complaints of Chest Pain > 30 cp y/o. 01:59 The patient or guardian reports chest pain that is located primarily in the substernal cp area. Onset: this morning. The pain does not radiate. Associated signs and symptoms: Pertinent positives: shortness of breath, Pertinent negatives: abdominal pain, diaphoresis, dizziness, lower extremity pain, lower extremity swelling, vomiting. Historical: - Allergies: 02:12 No Known Allergies; tw5 - Home Meds: 02:12 aspirin 81 mg Oral TbEC 1 tab once daily [Active]; donepezil 5 mg Oral tab 1 tab tw5 nightly [Active]; isosorbide mononitrate 120 mg Oral Tb24 1 tab once daily [Active]; lisinopril 5 mg Oral tab 1 tab once daily [Active]; isosorbide mononitrate 60 mg Oral Tb24 1.5 tabs once daily [Active]; atorvastatin 40 mg Oral tab 1 tab nightly [Active]; furosemide 20 mg Oral tab 1 tab once daily [Active]; potassium chloride 10 mEq Oral TbER 1 tab once daily [Active]; Januvia 50 mg Oral tab 1 tabs once daily [Active]; - PMHx: 02:12 CAD; cardiac arrest; CHF; chronic kidney disease; Diabetes - IDDM; Chronic pain; High tw5 Cholesterol; Hypertension; Myocardial infarction; - Immunization history:: Client reports receiving the 2nd dose of the Covid vaccine. - Social history:: Smoking status: Patient/guardian denies using tobacco, the patient reports quitting approximately 15 years ago. ROS: 02:00 Cardiovascular: Positive for chest pain, Negative for edema, palpitations. cp 02:00 Constitutional: Negative for body aches, chills, fever, poor PO intake. cp 02:00 Respiratory: Positive for shortness of breath, at rest. Negative for cough, wheezing. 02:00 Abdomen/GI: Positive for nausea, Negative for abdominal pain, vomiting, diarrhea, cp constipation. 02:00 Back: Negative for pain at rest, pain with movement. cp 02:00 Neuro: Negative for altered mental status, headache, weakness. 02:00 All other systems are negative. Exam: 02:00 ECG was reviewed by the Attending Physician. cp 02:05 Constitutional: The patient appears in no acute distress, alert, awake, cp non-diaphoretic, non-toxic, well developed, well nourished. 02:05 Head/Face: Normocephalic, atraumatic. cp 02:05 Eyes: Periorbital structures: appear normal, Conjunctiva: normal, no exudate, no injection, Sclera: no appreciated abnormality, Lids and lashes: appear normal, bilaterally. 02:05 ENT: External ear(s): are unremarkable, Nose: is normal, Mouth: Lips: moist, Oral mucosa: moist, Posterior pharynx: Airway: no evidence of obstruction, patent. 02:05 Neck: ROM/movement: is normal, is supple, without pain, no range of motions limitations. 02:05 Chest/axilla: Inspection: normal, Palpation: is normal, no crepitus, no tenderness. 02:05 Cardiovascular: Rate: normal, Rhythm: regular, Edema: is not appreciated, JVD: is not appreciated. 02:05 Respiratory: the patient does not display signs of respiratory distress, Respirations: normal, no use of accessory muscles, no retractions, labored breathing, is not present, Breath sounds: are clear throughout, no decreased breath sounds, no stridor, no wheezing. 02:05 Abdomen/GI: Inspection: obese Bowel sounds: active, all quadrants, Palpation: abdomen is soft and non-tender, in all quadrants. 02:05 Back: pain, is absent, ROM is normal. 02:05 Neuro: Orientation: to person, place \T\ time. Mentation: is normal, Motor: moves all fours, strength is normal, Sensation: is normal. Vital Signs: 01:57 BP 133 / 59; Pulse 72; Resp 16 S; Temp 97.0(TE); Pulse Ox 98% on R/A; Weight 79.38 kg tw5 (R); Height 5 ft. 7 in. (170.18 cm) (R); Pain 3/10; 02:16 BP 129 / 59; Pulse 73; Resp 12; Pulse Ox 97% on R/A; Pain 1/10; tw5 03:37 BP 118 / 55; Pulse 52; Resp 15 S; Pulse Ox 95% on R/A; as6 01:57 Body Mass Index 27.41 (79.38 kg, 170.18 cm) tw MDM: 02:07 Patient medically screened. cp 02:18 Differential diagnosis: acute myocardial infarction, cholecystitis, Cholelithiasis cp costochondritis, esophagitis, gastritis, pancreatitis, pericarditis, pleurisy, pneumonia, pneumothorax, stable angina, thoracic aortic disection, unstable angina. 03:20 The patient was given aspirin in the Emergency Department. cp 03:20 Data reviewed: vital signs, nurses notes, lab test result(s), EKG, radiologic studies, cp plain films, I have discussed the patient's presentation/case with the attending Emergency Department Physician; and as a result, I will admit patient. Test interpretation: by ED physician or midlevel provider: ECG, plain radiologic studies. Counseling: I had a detailed discussion with the patient and/or guardian regarding: the historical points, exam findings, and any diagnostic results supporting the discharge/admit diagnosis, lab results, radiology results, the need for further work-up and treatment in the hospital. Physician consultation: Dayo Reyna was contacted at 03:00, regarding admission, to the telemetry unit. 10/25 01:56 Order name: Basic Metabolic Panel tw10/25 01:56 Order name: CBC with Diff; Complete Time: 02:17 tw10/25 01:56 Order name: LFT's 10/25 01:56 Order name: Magnesium 10/25 01:56 Order name: NT PRO-BNP 10/25 01:56 Order name: PT-INR; Complete Time: 02:17 tw10/25 01:56 Order name: Troponin (emerg Dept Use Only) 10/25 01:56 Order name: EKG; Complete Time: 01:57 tw5 10/25 01:56 Order name: Cardiac monitoring; Complete Time: 01:57 tw5 10/25 01:57 Order name: Basic Metabolic Panel EDIL 10/25 02:37 Order name: SARS-COV-2 RT PCR; Complete Time: 03:19 EDIL 10/25 01:56 Order name: EKG - Nurse/Tech; Complete Time: :10/25 01:56 Order name: IV Saline Lock; Complete Time: 10/25 01:56 Order name: Labs collected and sent; Complete Time: 10/25 01:56 Order name: O2 Per Protocol; Complete Time: :10/25 01:56 Order name: O2 Sat Monitoring; Complete Time: EC:00 Rate is 59 beats/min. Rhythm is regular. OR interval is normal. QRS interval is normal. cp QT interval is normal. T waves are Inverted in leads I, aVL, V4, V5, V6. Interpreted by me. Reviewed by me. Administered Medications: 02:09 Drug: Aspirin Chewable Tablet 324 mg Route: PO; tw5 04:26 Follow up: Response: No adverse reaction as6 02:11 Drug: morphine 2 mg Route: IVP; Site: right antecubital; tw5 03:14 Drug: morphine 2 mg Route: IVP; Site: right antecubital; as6 04:26 Follow up: Response: No adverse reaction; RASS: Alert and Calm (0) as6 Disposition: 03:30 Chart complete. cp 05:39 Co-signature as Attending Physician, Isaias Anderson MD I agree with the assessment and rn plan of care. Attestation: The patient's history, exam findings, diagnostics, and a summary of any interventions or procedures was reviewed in detail with Michael GALVEZ. Disposition Summary: 10/25/21 03:15 Hospitalization Ordered Hospitalization Status: Observation cp Provider: Gadiel Anderson cp Location: Telemetry/MedSurg (observation) cp Condition: Stable cp Problem: new cp Symptoms: have improved cp Bed/Room Type: Standard cp Room Assignment: 219(10/25/21 03:33) cg Diagnosis - Angina pectoris, unspecified cp Forms: - Medication Reconciliation Form cp - SBAR form cp Signatures: Dispatcher [employer] EDMS Isaias Anderson MD MD rn Attema, Lee, JULIENC COLLAR TAILOR-Cla1 Michael Vizcarra PA PA cp Kerry Brown RN Tenisha Danielle tw5 Sg Mann RN RN as6 Corrections: (The following items were deleted from the chart) 02:37 02:03 CORONAVIRUS+[id number].BRZ ordered. EDMS EDMS 03:33 03:15 cp cg
--- NOTE | 2021-10-25 03:16 | ER ---
Nurse's Notes [facility] Name: Demetrius Sarmiento Age: 81 yrs Sex: Male : 1940 Arrival Date: 10/25/2021 Time: 01:54 Bed 5 Private MD: Diagnosis: Angina pectoris, unspecified Presentation: 10/25 01:57 Chief complaint: EMS states: " Called for chest pain, once we arrived the chest pain tw5 had resolved, patient reports slight shortness of breath.". Coronavirus screen: Vaccine status: Patient reports receiving the 2nd dose of the covid vaccine. Ebola Screen: Patient negative for fever greater than or equal to 101.5 degrees Fahrenheit, and additional compatible Ebola Virus Disease symptoms Patient denies exposure to infectious person. Patient denies travel to an Ebola-affected area in the 21 days before illness onset. Initial Sepsis Screen: Does the patient meet any 2 criteria? No. Patient's initial sepsis screen is negative. Does the patient have a suspected source of infection? No. Patient's initial sepsis screen is negative. Risk Assessment: Do you want to hurt yourself or someone else? Patient reports no desire to harm self or others. 01:57 Method Of Arrival: EMS: [facility] tw5 01:57 Acuity: LANCE 3 tw5 02:18 Onset of symptoms was October 25, 2021 at 00:30. tw5 Triage Assessment: 02:12 General: Appears in no apparent distress. Behavior is calm, cooperative, appropriate tw5 for age. Pain: Complains of pain in chest Pain currently is 1 out of 10 on a pain scale. Cardiovascular: Rhythm is regular. Historical: - Allergies: 02:12 No Known Allergies; tw5 - Home Meds: 02:12 aspirin 81 mg Oral TbEC 1 tab once daily [Active]; donepezil 5 mg Oral tab 1 tab tw5 nightly [Active]; isosorbide mononitrate 120 mg Oral Tb24 1 tab once daily [Active]; lisinopril 5 mg Oral tab 1 tab once daily [Active]; isosorbide mononitrate 60 mg Oral Tb24 1.5 tabs once daily [Active]; atorvastatin 40 mg Oral tab 1 tab nightly [Active]; furosemide 20 mg Oral tab 1 tab once daily [Active]; potassium chloride 10 mEq Oral TbER 1 tab once daily [Active]; Januvia 50 mg Oral tab 1 tabs once daily [Active]; - PMHx: 02:12 CAD; cardiac arrest; CHF; chronic kidney disease; Diabetes - IDDM; Chronic pain; High tw5 Cholesterol; Hypertension; Myocardial infarction; - Immunization history:: Client reports receiving the 2nd dose of the Covid vaccine. - Social history:: Smoking status: Patient/guardian denies using tobacco, the patient reports quitting approximately 15 years ago. Screenin:05 Abuse screen: Denies threats or abuse. Nutritional screening: No deficits noted. as6 Tuberculosis screening: No symptoms or risk factors identified. Fall Risk Secondary diagnosis (15 points) impaired mobility, IV access (20 points). Ambulatory Aid- Crutches/Cane/Walker (15 pts). Gait- Weak (10 pts.). Mental Status- Oriented to own ability (0 pts). Total Torres Fall Scale indicates High Risk Score (45 or more points). Side Rails Up X 2 Frequent Obs/Assessments Occuring As available patient and family educated on Fall Prevention Program and Strategies. Assessment: 02:16 General: Appears in no apparent distress. Behavior is calm, cooperative, appropriate tw5 for age. Pain: Complains of pain in chest Pain does not radiate. Pain began 2 hours ago. Cardiovascular: Heart tones S1 S2 present Rhythm is regular. 03:00 Reassessment: pt c/o sharp CP radiating down l arm. as6 Vital Signs: 01:57 BP 133 / 59; Pulse 72; Resp 16 S; Temp 97.0(TE); Pulse Ox 98% on R/A; Weight 79.38 kg tw5 (R); Height 5 ft. 7 in. (170.18 cm) (R); Pain 3/10; 02:16 BP 129 / 59; Pulse 73; Resp 12; Pulse Ox 97% on R/A; Pain 1/10; tw5 03:37 BP 118 / 55; Pulse 52; Resp 15 S; Pulse Ox 95% on R/A; as6 01:57 Body Mass Index 27.41 (79.38 kg, 170.18 cm) tw5 ED Course: 01:54 Patient arrived in ED. wm 01:56 Tenisha Villareal is Primary Nurse. tw5 01:59 Michael Vizcarra PA is PHCP. cp 01:59 Isaias Anderson MD is Attending Physician. cp 02:03 Triage completed. tw5 02:05 Maintain EMS IV. Dressing intact. Good blood return noted. Site clean \\T\\ dry. Gauge \\T\\ as 6 site: 20g r ac. 02:05 CBC with Diff Sent. tw5 02:05 Basic Metabolic Panel Sent. tw5 02:07 Placed in gown. Bed in low position. Call light in reach. Side rails up X2. Cardiac as6 monitor on. Pulse ox on. NIBP on. 02:07 Arm band placed on. as6 02:11 Basic Metabolic Panel Sent. tw5 02:11 LFT's Sent. tw5 02:11 Magnesium Sent. tw 02:11 NT PRO-BNP Sent. tw 02:11 PT-INR Sent. tw 02:11 CBC with Diff Sent. tw 02:12 Troponin (emerg Dept Use Only) Sent. tw 02:16 Patient maintains SpO2 saturation greater than 95% on room air. tw 02:16 Door closed. Noise minimized. Moved to private room. Warm blanket given. Verbal tw5 reassurance given. 03:15 Gadiel Anderson MD is Hospitalizing Provider. cp 04:25 No provider procedures requiring assistance completed. Patient admitted, IV remains in as6 place. Administered Medications: 02:09 Drug: Aspirin Chewable Tablet 324 mg Route: PO; tw5 04:26 Follow up: Response: No adverse reaction as6 02:11 Drug: morphine 2 mg Route: IVP; Site: right antecubital; tw5 03:14 Drug: morphine 2 mg Route: IVP; Site: right antecubital; as6 04:26 Follow up: Response: No adverse reaction; RASS: Alert and Calm (0) as6 Outcome: 03:15 Decision to Hospitalize by Provider. cp 04:25 Admitted to Med/surg accompanied by tech, via wheelchair, room 219, with chart, Report as6 called to Cl STONER 04:25 Condition: stable 04:26 Patient left the ED. as6 Signatures: Michael Vizcarra PA PA cp Marsh, Wendy wm Wood, Tiffany tw5 Sg Mann RN RN as6
[2021-10-25 03:23] LABS: Albumin 3.4 g/dL (3.4-5.0); Bilirubin Direct 0.1 mg/dL (0-0.2); Bilirubin Total 0.5 mg/dL (0.2-1.0); Magnesium 1.9 mg/dL (1.8-2.4); Potassium 4.4 mmol/L (3.5-5.1); Troponin (Emerg Dept Use Only) 0.03 ng/mL (0.0-0.045)
[2021-10-25] MEDS ORDERED: ONDANSETRON 4 MG/2 ML VIAL IV PRN (04:03)
[2021-10-25] MEDS: INSULIN -REGULAR HUMAN 50 UNIT/0.5 ML ML SQ SCH ×4 (07:30→21:00)
[2021-10-25] MEDS ORDERED: HEPARIN 5000 UNIT/ML 1 ML VIAL SQ SCH (09:00)
[2021-10-25] MEDS: FUROSEMIDE 20 MG TABLET PO SCH ×2 (09:00→10:43)
[2021-10-25 09:54] LABS: Thyroid Stimulating Hormone 3.07 uIU/mL (0.360-3.740); Troponin I 0.04 ng/mL (0.0-0.045)
[2021-10-25] MEDS: lisinopriL 5 MG TAB PO SCH (10:42)
[2021-10-25] MEDS: ISOSORBIDE MONO SR 60 MG TAB PO SCH (10:42)
[2021-10-25] MEDS: ASPIRIN EC 81 MG TAB PO SCH (10:42)
[2021-10-25] MEDS ORDERED: D5 0.45 NS 1,000 ML IV SCH (11:00)
--- NOTE | 2021-10-25 12:45 | ECHO ---
HEIGHT: 5 ft 7.75 in WEIGHT: 175 lb 0 oz DATE OF STUDY: 10/25/[address]: Dayo Reyna NP 2-DIMENSIONAL: YES M.MODE: YES DOPPLER: YES COLOR FLOW: YES TDS: NO PORTABLE: NO DEFINITY: NO BUBBLE STUDY: NO DIAGNOSIS: CHEST PAIN CARDIAC HISTORY: CATHERIZATION: NO SURGERY: NO PROSTHETIC VALVE: NO PACEMAKER: NO MEASUREMENTS (cm) DIASTOLIC (NORMALS) SYSTOLIC (NORMALS) IVSd 0.9 (0.6-1.2) LA Diam 3.6 (1.9-4.0) LVEF 44% LVIDd 5.9 (3.5-5.7) LVIDs 4.6 (2.0-3.5) %FS 22% LVPWd 1.1 (0.6-1.2) Ao Diam 2.7 (2.0-3.7) 2 DIMENSIONAL ASSESSMENT: RIGHT ATRIUM: NORMAL LEFT ATRIUM: NORMAL RIGHT VENTRICLE: NORMAL LEFT VENTRICLE: DEPRESSED TRICUSPID VALVE: MITRAL VALVE: MITRAL ANNULAR CALCIFICATION PULMONIC VALVE: NORMAL AORTIC VALVE: NORMAL PERICARDIAL EFFUSION: NONE AORTIC ROOT: NORMAL LEFT VENTRICULAR WALL MOTION: MILD ANTERIOR WALL HYPEKINESIS. DOPPLER/COLOR FLOW: SEE BELOW COMMENTS: MILDLY DEPRESSED LEFT VENTRICULAR EJECTION FRACTION 40-45%. MILD ANTERIOR WALL HYPEKINESIS. MILD MITRAL AND TRICUSPID REGURGITATION. TECHNOLOGIST: Yvon BRAND
--- NOTE | 2021-10-25 14:47 | RAD REPORT ---
EXAM DESCRIPTION: RAD - Chest Single View - 10/25/2021 2:10 pm CLINICAL HISTORY: Substernal chest pain COMPARISON: Chest Pa And Lat (2 Views) dated 08/20/2021; Chest Single View dated 04/24/2021; Chest Sing le View dated 09/24/2020; Abdomen 1 View (KUB) dated 07/13/2020 FINDINGS: Lines: None. Lungs: No evidence of edema or pneumonia. Pleural: No significant pleural effusions or pneumothorax. Cardiac: Cardiomegaly. Bones: No acute fractures. Other: Spinal stimulator . IMPRESSION: No acute cardiopulmonary disease.
[2021-10-25] MEDS: ENOXAPARIN 80 MG/0.8 ML SQ SCH (18:17)
--- NOTE | 2021-10-25 19:08 | CON ---
Date of Consultation: 10/25/2021 Reason For Consultation: Chest pain. History Of Present Illness: This is an 81-year-old male with history of coronary artery disease stat us post cardiac stent placement in the past, who presented with chest pain, retrosternal. This is be coming more frequent as per his report, radiates to left upper extremity, not related to exertion. I evaluated him in the hospital a few months back and recommended a coronary angiogram, but he wants t o follow up with his primary turkey farmer. He saw his turkey farmer and he was told that he was fine and did not have any workup done as per the patient's report. Past Medical History: Hypertension, coronary artery disease, diabetes, and CHF. Medications: Refer reconciliation sheet for detailed list. Allergies: NO KNOWN DRUG ALLERGIES. Family History: No premature coronary artery disease or cancer. Social History: He does not smoke or drink. Does not use any drugs. Review of Systems: All systems reviewed and they were negative except as mentioned in HPI. Physical Examination: Vital Signs: Reviewed. Head and Neck: Pupils are equal and reactive to light. Intact eye movements. No JVD. No cervical lymphadenopathy. Neck is supple. Thyroid is not enlarged. Lungs: Clear to auscultation bilaterally. No rhonchi, rales, or crackles. No masses or hernia. No rigidity or rebound. Heart: Regular rate and rhythm. No extra sounds. Abdomen: Soft, nontender. Bowel sounds positive. No organomegaly. No masses or hernia. No rigidi ty or rebound. Extremities: No edema, clubbing, or cyanosis. Intact pulses. Skin: No rashes. Neurologic: Alert, awake and oriented x3. No acute focal deficits appreciated. Investigations: Hemoglobin is 13.01 and white blood cell count 5.8. Sodium 141, BUN is 22, and crea tinine 1.45. Troponin 0.04. Assessment And Recommendations: Chest pain, could represent unstable angina. Admit trend cardiac en zymes on echo if ejection fraction is mildly depressed. Recommend coronary angiogram. Keep the chet ent on Lovenox therapeutic 1 mg/kg subcu q.12 hours and a baby aspirin and use nitroglycerin for pain control as well as morphine sulfate. Plan for coronary angiogram on Thursday. Thank you for the consult. /AMINAH Voice ID: [id number] Report ID: [id number]
[2021-10-25] MEDS: DONEPEZIL HCL 5 MG TAB PO SCH (21:20)
[2021-10-25] MEDS: ATORVASTATIN 40 MG TAB PO SCH (21:20)
[2021-10-26] MEDS: ENOXAPARIN 80 MG/0.8 ML SQ SCH ×2 (04:32→16:04)
--- NOTE | 2021-10-26 06:02 | P.PN ---
Date of Service: 10/26/21 Subjective: Patient denies any further chest pain/discomfort. Patient, short of breath after ambulating to the bathroom and back to bed Denies cough, no fever/chills, no nausea/vomiting ROS: 10 point ROS as noted above, otherwise negative Physical exam GEN: Alert, oriented HEENT: Normal conjunctiva, sclera anicteric CV: Regular rate and rhythm, no edema Pulm: mild tachypnea, on room air ABD: Soft, nontender, nondistended MSK: No joint tenderness Integumentary: No rashes Neuro: Normal speech, normal affect Problem List Chest pain rule out ACShistory of CAD/CHF Chronic systolic CHF (HFrEF) Diabetes mellitus type 2, non-insulin dependent ALBA on CKD III Hypertension Hyperlipidemia Chest pain rule out ACShistory of CAD/CHF Chronic systolic CHF (HFrEF) trop trended down monitor telemetry cardiology consulted -recommend cardiac cath, unable to be done on 10/25, plan for Thursday continue lovenox 1mg/kg q12 Seen last year for similar complaint at that time heart catheterization was deferred due to risk for renal injury. echo: EF: ~40%, mild anterior wall hypokinesis Diabetes mellitus type 2: A [facility] Accu-Chek, sliding scale insulin therapy. ALBA on CKD III: improved. Hypertension: Home medications continued Hyperlipidemia: Home medications continued VTE: lovenox 1mg/kg Code status: Full Dispo: Cardiac cath on Thursday, anticipate DC home within 24hrs after cath Time Spent Managing Pts Care (In Minutes): 35
[2021-10-26 06:06] LABS: Absolute Lymphocytes (CBC) 1.4 K/uL (0.7-4.9); Basophils % 0.8 % (0-1.3); Hematocrit 36.8 % (39.6-49.0); Lymphocytes % 21.3 % (15.3-44.8); MPV 8.1 fL (7.6-11.3); RBC Red Blood Cell Count 3.89 M/uL (4.33-5.43)
[2021-10-26 06:28] LABS: Albumin 3.3 g/dL (3.4-5.0); Magnesium 2.1 mg/dL (1.8-2.4); Potassium 4.3 mmol/L (3.5-5.1); Protein, Total 6.9 g/dL (6.4-8.2)
[2021-10-26] MEDS: INSULIN -REGULAR HUMAN 50 UNIT/0.5 ML ML SQ SCH ×4 (07:30→21:00)
[2021-10-26 07:33] VITALS: BMI 27.3
[2021-10-26] MEDS: ASPIRIN EC 81 MG TAB PO SCH (08:18)
[2021-10-26] MEDS: lisinopriL 5 MG TAB PO SCH (08:18)
[2021-10-26] MEDS: FUROSEMIDE 20 MG TABLET PO SCH (08:20)
[2021-10-26] MEDS: ISOSORBIDE MONO SR 60 MG TAB PO SCH (08:21)
[2021-10-26] MEDS: MORPHINE 2 MG/ML SYR IV PRN ×2 (12:16→21:17)
[2021-10-26] MEDS: METOPROLOL TAR 25 MG TAB PO SCH (17:31)
--- NOTE | 2021-10-26 18:23 | PN ---
Date of Progress Note: 10/26/2021 Subjective: Seen by bedside and still having on and off chest pain. Responds to pain management. Review of Systems: No nausea, vomiting, diarrhea. No abdominal pain. No dysuria, polyuria, or urgency. All other syst ems reviewed are negative. Physical Examination: Vital Signs: Reviewed and they are stable. Temperature is 98.3, pulse 83, breathing 16, blood press ure 110/60. General: Pleasant elderly male, in no distress. Head and Neck: Pupils are equal, reactive to light. Intact eye movements. No JVD. No cervical lym phadenopathy. Neck: Supple. Thyroid is not enlarged. Lungs: Clear to auscultation bilaterally. No rhonchi, rales, or crackles. No accessory muscle use. Heart: Regular rate and rhythm. No extra sounds. Abdomen: Soft, nontender. Bowel sounds positive. No organomegaly. No masses or hernia. No rigidi ty or rebound. Extremities: No edema, clubbing, cyanosis. Intact pulses. Skin: No rashes. Neurologic: Alert, awake, oriented x3. No acute focal deficits appreciated. Investigations: Labs reviewed. Assessment And Recommendations: Chest pain suggestive of unstable angina. Continue to monitor in [facility] with Lovenox and aspirin and plan for coronary angiogram on Thursday. SR/MODL Voice ID: [id number] Report ID: [id number]
[2021-10-26] MEDS: ATORVASTATIN 40 MG TAB PO SCH (21:15)
[2021-10-26] MEDS: DONEPEZIL HCL 5 MG TAB PO SCH (21:16)
[2021-10-27] MEDS: LIDOCAINE 4% PATCH TOP SCH ×2 (01:12→09:26)
[2021-10-27 03:58] LABS: Magnesium 1.9 mg/dL (1.8-2.4)
[2021-10-27] MEDS: ENOXAPARIN 80 MG/0.8 ML SQ SCH ×2 (05:33→16:22)
[2021-10-27] MEDS: METOPROLOL TAR 25 MG TAB PO SCH ×2 (05:33→17:22)
--- NOTE | 2021-10-27 06:10 | P.PN ---
Date of Service: 10/27/21 Subjective: Continues with some shortness of breath and some chest discomfort. Reports chest discomfort not constant, not consistent Postoperative right chest area and left mid axillary line, feels like pain went down right arm as well. Troponin remains 0.04 Overall states he "does not feel well" Denies nausea/vomiting, no abdominal pain, no lower extremity swelling or pain, no palpitations, no cough ROS: 10 point ROS as noted above, otherwise negative Physical exam GEN: Alert, oriented, NAD HEENT: Normal conjunctiva, sclera anicteric CV: Regular rate and rhythm, no edema Pulm: Nonlabored respirations on room air ABD: Soft, nontender, nondistended MSK: No joint tenderness Integumentary: No rashes Neuro: Normal speech, normal affect Problem List Chest pain rule out ACShistory of CAD/CHF Chronic systolic CHF (HFrEF) Diabetes mellitus type 2, non-insulin dependent CKD III Hypertension Hyperlipidemia Chest pain rule out ACShistory of CAD/CHF Chronic systolic CHF (HFrEF) trop trended down monitor telemetry cardiology consulted -recommend cardiac cath, unable to be done on 10/25, plan for tomorrow continue lovenox 1mg/kg q12 Seen last year for similar complaint at that time heart catheterization was deferred due to risk for renal injury. echo: EF: ~40%, mild anterior wall hypokinesis Renal function appears to be at baseline Patient feels short of breath, chest x-ray was clear ED, will check D-dimer, possibility of PE Diabetes mellitus type 2: A [facility] Accu-Chek, sliding scale insulin therapy. CKD III: at baseline Hypertension: Home medications continued Hyperlipidemia: Home medications continued VTE: lovenox 1mg/kg Code status: Full Dispo: Cardiac cath tomorrow, anticipate DC home within 24hrs after cath Time Spent Managing Pts Care (In Minutes): 35
[2021-10-27] MEDS: MORPHINE 2 MG/ML SYR IV PRN ×2 (07:01→17:35)
[2021-10-27] MEDS: INSULIN -REGULAR HUMAN 50 UNIT/0.5 ML ML SQ SCH ×4 (07:30→21:58)
[2021-10-27] MEDS: ASPIRIN EC 81 MG TAB PO SCH (09:27)
[2021-10-27] MEDS: ISOSORBIDE MONO SR 60 MG TAB PO SCH (09:27)
[2021-10-27] MEDS: FUROSEMIDE 20 MG TABLET PO SCH (09:27)
[2021-10-27] MEDS: lisinopriL 5 MG TAB PO SCH (09:27)
--- NOTE | 2021-10-27 14:27 | RAD REPORT ---
EXAM DESCRIPTION: US - Extrem Venous W Compress Piero - 10/27/2021 2:19 pm CLINICAL HISTORY: r/o DVT COMPARISON: None. TECHNIQUE: Real-time sonographic evaluation of the bilateral lower extremity common femoral, superfi cial femoral, popliteal and posterior tibial veins was performed. FINDINGS: Normal compressibility, flow augmentation, phasic flow and spontaneous flow are identified in the left and right lower extremity common femoral, superficial femoral, popliteal and posterior t ibial veins. No intraluminal filling defects seen. IMPRESSION: No DVT in either lower extremity.
--- NOTE | 2021-10-27 17:30 | PN ---
Date of Progress Note: 10/27/2021 Subjective: Seen by bedside. He is having on and off chest pain with some shortness of breath. No nausea, vomiting, diarrhea. No dysuria, polyuria, or urinary urgency. Review of Systems: All other systems reviewed and are negative. Physical Examination: Vital Signs: Temperature is 98.1, pulse 51, breathing at 18, blood pressure 127/62, saturating 97%. General: Pleasant middle-aged male, in no apparent distress. Head and Neck: Pupils are equal, reactive to light. Intact eye movements. No JVD. No cervical lym phadenopathy. Neck: Supple. Thyroid is not enlarged. Lungs: Clear to auscultation bilaterally. No rhonchi, rales, or crackles. No accessory muscle use. Heart: Regular rate and rhythm. No extra sounds. Abdomen: Soft, nontender. Bowel sounds positive. No organomegaly. No masses or hernia. No rigidi ty or rebound. Extremities: No edema, clubbing, or cyanosis. Intact pulses. Skin: No rash. Neuro: Alert, awake, oriented x3. No acute focal deficits appreciated. Investigations: Labs were reviewed. Assessment And Recommendations: 1.Unstable angina. Hold Lovenox after this evening's dose and plan for coronary angiogram tomorrow. 2.Mild elevation of creatinine with acute kidney failure. Please hold the Lasix and repeat labs graciela orrow morning. /MODL Voice ID: [id number] Report ID: [id number]
--- NOTE | 2021-10-27 17:34 | RAD REPORT ---
EXAM DESCRIPTION: RAD - Chest Single View - 10/27/2021 5:11 pm CLINICAL HISTORY: tachypnea, short of breath COMPARISON: October 25 TECHNIQUE: AP portable chest image was obtained 10/27/2021 5:11 pm . FINDINGS: No new mass or consolidation. Interstitial pattern matches comparison. Heart and vasculatu re are normal. No measurable pleural effusion and no pneumothorax. No acute bony abnormality seen. No acute aortic findings suspected. IMPRESSION: No acute cardiopulmonary process. No significant change from comparison study.
[2021-10-27] MEDS: DONEPEZIL HCL 5 MG TAB PO SCH (21:58)
[2021-10-27] MEDS: ATORVASTATIN 40 MG TAB PO SCH (21:58)
[2021-10-28] MEDS ORDERED: NA CHLORIDE 0.9% 1,000 ML IV SCH (00:01)
[2021-10-28] MEDS: MORPHINE 2 MG/ML SYR IV PRN ×2 (01:03→22:26)
[2021-10-28 04:25] LABS: Absolute Lymphocytes (CBC) 1.9 K/uL (0.7-4.9); Basophils % 0.1 % (0-1.3); Lymphocytes % 25.3 % (15.3-44.8); MPV 8.2 fL (7.6-11.3); RBC Red Blood Cell Count 3.93 M/uL (4.33-5.43)
[2021-10-28 04:26] LABS: Protime INR 1.09
[2021-10-28 04:40] LABS: Magnesium 1.8 mg/dL (1.8-2.4)
[2021-10-28] MEDS: METOPROLOL TAR 25 MG TAB PO SCH ×2 (06:00→16:55)
--- NOTE | 2021-10-28 06:08 | P.PN ---
Date of Service: 10/28/21 Subjective: ROS: 10 point ROS as noted above, otherwise negative Physical exam GEN: Alert, oriented, NAD HEENT: Normal conjunctiva, sclera anicteric CV: Regular rate and rhythm, no edema Pulm: Nonlabored respirations on room air ABD: Soft, nontender, nondistended MSK: No joint tenderness Integumentary: No rashes Neuro: Normal speech, normal affect Problem List Chest pain rule out ACShistory of CAD/CHF Chronic systolic CHF (HFrEF) Diabetes mellitus type 2, non-insulin dependent CKD III Hypertension Hyperlipidemia Chest pain rule out ACShistory of CAD/CHF Chronic systolic CHF (HFrEF) trop trended down monitor telemetry cardiology consulted -recommend cardiac cath, unable to be done on 10/25, plan for tomorrow continue lovenox 1mg/kg q12 Seen last year for similar complaint at that time heart catheterization was deferred due to risk for renal injury. echo: EF: ~40%, mild anterior wall hypokinesis Renal function appears to be at baseline Patient feels short of breath, chest x-ray was clear ED, will check D-dimer, possibility of PE Diabetes mellitus type 2: A [facility] Accu-Chek, sliding scale insulin therapy. CKD III: at baseline Hypertension: Home medications continued Hyperlipidemia: Home medications continued VTE: lovenox 1mg/kg Code status: Full Dispo: Cardiac cath tomorrow, anticipate DC home within 24hrs after cath Time Spent Managing Pts Care (In Minutes): 35
[2021-10-28] MEDS: INSULIN -REGULAR HUMAN 50 UNIT/0.5 ML ML SQ SCH ×4 (07:30→20:36)
[2021-10-28] MEDS: LIDOCAINE 4% PATCH TOP SCH ×2 (09:00→20:35)
[2021-10-28] MEDS: FUROSEMIDE 20 MG TABLET PO SCH (09:20)
[2021-10-28] MEDS: ASPIRIN EC 81 MG TAB PO SCH (09:20)
[2021-10-28] MEDS: lisinopriL 5 MG TAB PO SCH (09:20)
[2021-10-28] MEDS: ISOSORBIDE MONO SR 60 MG TAB PO SCH (09:20)
[2021-10-28] MEDS ORDERED: NA CHLORIDE 0.9% 500 ML ONE (10:39)
--- NOTE | 2021-10-28 10:57 | P.CNS ---
Date of Consult: 10/28/21 Reason for Consult: CKD Requesting Physician: Gadiel Anderson Primary Care Provider: Dr. Briscoe Chief Complaint: Chest pain History of Present Illness: 81-year-old male with history of CAD, CHFunknown EF, diabetes mellitus type 2, hypertension, CKD, hyperlipidemia presents emergency department for chest pain. Patient reports ongoing intermittent chest pain over the course of last 1 month but significantly worse tonight, patient also reports dyspnea on exertion over the course of last month or so. 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 Costello, patient not sure when his last heart catheterization was reports "a few years ago". Patient has not had any formal cardiology evaluation at this facility in the past including echocardiogram or cardiac catheterization for review. Patient poor historian. Patient was evaluated in the emergency department EKG without STEMI, initial troponin negative chest x-ray unremarkable ED provider wishes to admit for further evaluation and management/ACS rule out. 01:59 This 81 yrs old Male presents to ER via Unassigned with complaints of Chest Pain > 30 cp y/o. 01:59 The patient or guardian reports chest pain that is located primarily in the substernal cp area. Onset: this morning. The pain does not radiate. Associated signs and symptoms: Pertinent positives: shortness of breath, Pertinent negatives: abdominal pain, diaphoresis, dizziness, lower extremity pain, lower extremity swelling, vomiting. Allergies No Known Allergies Allergy (Verified 03/10/20 01:08) Home medications list reviewed: Yes Home Medications: Aspirin 1 tab PO DAILY 03/10/20 Atorvastatin Calcium 1 tab PO BEDTIME 03/10/20 Insulin Glargine Human [Lantus*] 10 unit SQ BEDTIME 03/10/20 Potassium Chloride [K-Dur] 10 meq PO DAILY #30 tab.er.prt 03/11/20 Donepezil HCl [Aricept] 5 mg PO DAILY AT SUPPER 03/17/20 Furosemide [Lasix] 20 mg PO DAILY AT SUPPER 03/17/20 Isosorbide Mononitrate [Isosorbide Mononitrate ER] 1.5 tab PO DAILY 09/24/20 Lisinopril [Zestril] 5 mg PO DAILY 09/24/20 Sitagliptin Phosphate [Januvia] 50 mg PO DAILY 09/24/20 - Past Medical/Surgical History Diabetic: Yes -: CHFunknown EF -: HTN -: DM IDDM -: Heart Stents -: Solitary kidney -: Chronic renal failure -: CAD -: stents Psychosocial/ Personal History: Patient is , lives at home alone - Family History Father Medical History: Heart disease Notes: PA - Social History Smoking Status: Former smoker Alcohol use: No CD- Drugs: No Caffeine use: Yes Place of Residence: Home Review of Systems 10-point ROS is otherwise unremarkable General: Weakness, Malaise Respiratory: SOB with Excertion Neurological: Weakness Physical Examination Temp Pulse Resp BP Pulse Ox 97.1 F 63 17 142/67 H 99 10/28/21 08:00 10/28/21 08:00 10/28/21 08:00 10/28/21 08:00 10/28/21 08:00 General: Oriented x3, Cooperative HEENT: Atraumatic Neck: Supple Respiratory: Clear to auscultation bilaterally Cardiovascular: No edema, Regular rate/rhythm Gastrointestinal: Soft and benign, Non-distended Musculoskeletal: No clubbing, No contractures Integumentary: No rashes, No cyanosis Neurological: Normal speech Blood work reviewed in the chart. Imagings Data: EXAM DESCRIPTION: RAD - Chest Single View - 10/27/2021 5:11 pm CLINICAL HISTORY: tachypnea, short of breath COMPARISON: October 25 TECHNIQUE: AP portable chest image was obtained 10/27/2021 5:11 pm . FINDINGS: No new mass or consolidation. Interstitial pattern matches comparison. Heart and vasculature are normal. No measurable pleural effusion and no pneumothorax. No acute bony abnormality seen. No acute aortic findings suspected. IMPRESSION: No acute cardiopulmonary process. No significant change from comparison study. EXAM DESCRIPTION: US - Extrem Venous W Compress Piero - 10/27/2021 2:19 pm CLINICAL HISTORY: r/o DVT COMPARISON: None. TECHNIQUE: Real-time sonographic evaluation of the bilateral lower extremity common femoral, superficial femoral, popliteal and posterior tibial veins was performed FINDINGS: Normal compressibility, flow augmentation, phasic flow and spontaneous flow are identified in the left and right lower extremity common femoral, superficial femoral, popliteal and posterior tibial veins. No intraluminal filling defects seen. IMPRESSION: No DVT in either lower extremity. Conclusions/Impression: CKD III -No NSAIDs HTN with CKD/ CHF -Continue Lisinopril Systolic CHF, Chronic -Continue Lasix DM II with CKD -RISS Thank you kindly for the consultation. Case reveiwed with Dr. Anderson
[2021-10-28] MEDS ORDERED: LIDOCAINE 1% 20 ML MDV ONE (11:24)
[2021-10-28] MEDS ORDERED: MIDAZOLAM HCL 2 MG/2 ML INJ ONE (11:25)
[2021-10-28] MEDS ORDERED: FENTANYL CITR 100 MCG/2 ML ONE ×2 (11:25→12:45)
[2021-10-28] MEDS ORDERED: HEPA 1000U/500MLS 1,000 UNIT/500 ML BAG IV ONE ×2 (11:25→11:35)
[2021-10-28] MEDS ORDERED: ATROPINE SULF 1 MG/10 ML SYR IV ONE (11:26)
[2021-10-28] MEDS ORDERED: NA CHLORIDE 0.9% 50 ML ONE (11:26)
[2021-10-28] MEDS ORDERED: PRASUGREL (EFFIENT) 10 MG TAB ONE (12:27)
[2021-10-28] MEDS ORDERED: ACETYLCYST 20% 4 ML VIAL IH ONE (12:33)
--- NOTE | 2021-10-28 18:21 | OP ---
Date of Procedure: 10/28/2021 Surgeon: Gibson Davidson MD Powder Nipper: Joyce Adams. The patient was admitted on 10/26/[address] Anderson for non-ST elevation myocardial infarction. Procedure In Detail: Mr. Sarmiento was brought to the seed laboratory assistant today, 10/28/2021. He was prepped and d raped in routine sterile fashion. He was an inpatient. He received Versed and fentanyl for sedation . A 6-Japanese sheath was introduced in the right common femoral artery successfully using the [place] er technique. Angiography there was normal. StarClose was used to close the case. Marium catheter left and right were used to cannulate the left main and the right main respectively. His RCA was di fficult to cannulate. He had 60% to 70% stenosis in the ostium of the RCA and another 70% stenosis i n the mid RCA. Has 50% stenosis in the distal RCA. On the left side, the left main was normal, it w as short. The circumflex was normal and was giving collaterals to the RCA. He was codominant. The LAD had multiple stenosis about 70% proximal stenosis, about an 80% post stent stenosis in the mid LA D, about an 80% stenosis in the distal LAD. He had 80% stenosis in the first diagonal. We decided t o intervene. An XBLAD 3.5 with side-hole was used to cannulate the left main. A [place]gin wire was use d to cross the lesion in the LAD distally. Angiomax was started. ACT was appropriate. The distal L AD was treated with 2.25 x 12 noncompliant Emerge balloon with 20% residual. The mid LAD had a 2.5 x 16 stent with 0% residual. Proximal LAD had a 3.0 x 20 mm Synergy stent at 14 atmospheres with 0% r esidual. The diagonal was treated medically. The RCA may need to be done down the road. The patien t received aspirin, Effient, Angiomax during the procedure. He tolerated the procedure well. There were no complications. Blood Loss: 5 mL. Final Diagnosis: Successful angioplasty and stent of the proximal LAD, mid LAD, and distal LAD. The patient will remain in the hospital overnight. He will go home on aspirin, statin, Effient or Pl avix, beta-raven. We will see how he does clinically. We may have to bring him back and do the RC A down the road. Anesthesia: Total conscious sedation was 75 minutes. HARSHAD/MODL Voice ID: [id number] Report ID: [id number]
[2021-10-28] MEDS: ATORVASTATIN 40 MG TAB PO SCH (20:35)
[2021-10-28] MEDS: DONEPEZIL HCL 5 MG TAB PO SCH (20:35)
[2021-10-28] MEDS ORDERED: ACETAMINOPHEN 500 MG TAB PO PRN (21:38)
[2021-10-29] MEDS: MORPHINE 2 MG/ML SYR IV PRN ×2 (04:27→11:49)
[2021-10-29] MEDS: METOPROLOL TAR 25 MG TAB PO SCH ×2 (05:19→17:31)
[2021-10-29] MEDS: INSULIN -REGULAR HUMAN 50 UNIT/0.5 ML ML SQ SCH ×4 (07:30→19:46)
[2021-10-29] MEDS ORDERED: CLOPIDOGREL 75 MG TABLET PO SCH (09:00)
[2021-10-29] MEDS: LIDOCAINE 4% PATCH TOP SCH (09:11)
[2021-10-29] MEDS: ISOSORBIDE MONO SR 60 MG TAB PO SCH (09:12)
[2021-10-29] MEDS: ASPIRIN EC 81 MG TAB PO SCH (09:12)
[2021-10-29] MEDS: FUROSEMIDE 20 MG TABLET PO SCH (09:12)
[2021-10-29] MEDS: lisinopriL 5 MG TAB PO SCH (09:13)
[2021-10-29 09:53] VITALS: O2SAT 99
--- NOTE | 2021-10-29 10:39 | P.DS ---
Admission Date: 10/26/21 Discharge Date: 10/29/21 Primary Care Provider: Dr. Briscoe Discharge Condition: FAIR Reason for Admission: Chest pain Consultations: Cardiology-Dr. Davidson - Problems (1) Coronary angioplasty status Current Visit: Yes Status: Acute (2) Angina at rest Current Visit: No Status: Acute (3) Coronary artery disease Current Visit: No Status: Acute (4) Diabetes mellitus type 2 in nonobese Current Visit: No Status: Acute Brief History of Present Illness: 81-year-old male with history of CAD, CHFunknown EF, diabetes mellitus type 2, hypertension, CKD, hyperlipidemia presents emergency department for chest pain. Patient reports ongoing intermittent chest pain over the course of last 1 month but significantly worse on the day of admission. Symptoms associated with dyspnea especially with exertion. Status post cardiac catheterization in the past. Patient was evaluated in the emergency department EKG without STEMI, initial troponin negative chest x-ray unremarkable. Patient with typical chest pain. He was admitted for further management. Hospital Course: Patient admitted to medical floor. Troponin trended negative. He was seen in consultation by cardiology. Echocardiogram reported an EF of 40 to 45%. Cardiac catheterization was performed by cardiology. Patient noted to have up to 80% stenosis in multiple sections of the LAD. Proximal, mid and distal LAD was stented. Patient has chronic renal insufficiency. [facility] cardiac [facility]. No issues post cardiac cath. Patient currently has no complain, eating well and ambulating. He is discharged with aspirin and Plavix, metoprolol and lisinopril. He will follow with Dr. Davidson within 1 to 2 weeks in the office. Vital Signs/Physical Exam: Temp Pulse Resp BP Pulse Ox 988 F H 52 16 129/61 100 10/29/21 05:20 10/29/21 09:12 10/29/21 05:20 10/29/21 09:12 10/29/21 04:57 General: Alert, In no apparent distress, Oriented x3 HEENT: Mucous membr. moist/pink Neck: JVD not distended Respiratory: Clear to auscultation bilaterally, Normal air movement Cardiovascular: No edema, Regular rate/rhythm, Normal S1 S2 Gastrointestinal: Soft and benign, Non-distended, No tenderness Musculoskeletal: No swelling Integumentary: No rashes Neurological: Normal speech, Normal strength at 5/5 x4 extr, Cranial nerves 3-12 intact Laboratory Data at Discharge: WBC 7.30 K/uL (4.3-10.9) D 10/28/21 04:09 Hgb 12.8 g/dL (13.6-17.9) L 10/28/21 04:09 Hct 37.0 % (39.6-49.0) L 10/28/21 04:09 Plt Count 164 K/uL (152-406) 10/28/21 04:09 PT 12.6 SECONDS (9.5-12.5) H 10/28/21 04:09 INR 1.09 10/28/21 04:09 Sodium 139 mmol/L (136-145) 10/28/21 04:09 Potassium 4.0 mmol/L (3.5-5.1) 10/28/21 04:09 BUN 33 mg/dL (7-18) H 10/28/21 04:09 Creatinine 1.49 mg/dL (0.55-1.3) H 10/28/21 04:09 Glucose 146 mg/dL (74-106) H 10/28/21 04:09 Magnesium 1.8 mg/dL (1.8-2.4) 10/28/21 04:09 Total Bilirubin 1.0 mg/dL (0.2-1.0) 10/26/21 05:25 AST 17 U/L (15-37) 10/26/21 05:25 ALT 18 U/L (12-78) 10/26/21 05:25 Alkaline Phosphatase 48 U/L (45-117) 10/26/21 05:25 Troponin I 0.04 ng/mL (0.0-0.045) 10/27/21 03:33 Triglycerides 202 mg/dL (<150) H 10/26/21 05:25 Cholesterol 136 mg/dL (<200) 10/26/21 05:25 HDL Cholesterol 41 mg/dL (40-60) 10/26/21 05:25 Cholesterol/HDL Ratio 3.32 10/26/21 05:25 Home Medications: Atorvastatin Calcium 1 tab PO BEDTIME 03/10/20 Insulin Glargine Human [Lantus*] 10 unit SQ BEDTIME 03/10/20 Donepezil HCl [Aricept] 5 mg PO DAILY AT SUPPER 03/17/20 Furosemide [Lasix*] 20 mg PO DAILY AT SUPPER 03/17/20 Isosorbide Mononitrate [Isosorbide Mononitrate ER] 1.5 tab PO DAILY 09/24/20 Lisinopril [Zestril] 5 mg PO DAILY 09/24/20 Sitagliptin Phosphate [Januvia*] 50 mg PO DAILY 09/24/20 Aspirin 1 tab PO DAILY #30 tab.chew 10/29/21 Clopidogrel Bisulfate [Plavix*] 75 mg PO DAILY #30 tablet 10/29/21 Metoprolol Tartrate [Lopressor*] 12.5 mg PO BID 6AM 6PM #60 tab 10/29/21 New Medications: Aspirin 1 tab PO DAILY #30 tab.chew Metoprolol Tartrate [Lopressor*] 12.5 mg PO BID 6AM 6PM #60 tab Clopidogrel Bisulfate [Plavix*] 75 mg PO DAILY #30 tablet Diet: ADA Activity: Ad wilmer Followup: Gibson Davidson MD [ACTIVE - CAN ADMIT] - 1-2 Weeks NONE,NONE [Primary Care Provider] -
[2021-10-29] MEDS: DONEPEZIL HCL 5 MG TAB PO SCH (19:48)
[2021-10-29] MEDS: ATORVASTATIN 40 MG TAB PO SCH (19:48)
[2021-10-29 21:03] VITALS: BP 109/62; TEMP 97.9
--- NOTE | 2021-10-29 21:28 | P.PN ---
Date of Service: 10/29/21 Vital Signs Temp Pulse Resp BP Pulse Ox 97.9 F 89 20 109/62 96 10/29/21 20:00 10/29/21 20:00 10/29/21 20:00 10/29/21 20:00 10/29/21 20:00 Medications Acetaminophen (Acetaminophen 500 Mg Tab) 500 mg PO Q4H PRN PRN Reason: Pain scale 2-4 (Mild) Last Admin: 10/28/21 22:09 Dose: 500 mg Documented by: Aspirin (Aspirin Ec 81 Mg Tab) 81 mg PO DAILY [facility] Last Admin: 10/29/21 09:12 Dose: 81 mg Documented by: Atorvastatin Calcium (Atorvastatin 40 Mg Tab) 40 mg PO BEDTIME [facility] Last Admin: 10/29/21 19:48 Dose: 40 mg Documented by: Clopidogrel Bisulfate (Clopidogrel 75 Mg Tablet) 75 mg PO DAILY [facility] Last Admin: 10/29/21 09:11 Dose: 75 mg Documented by: Donepezil HCl (Donepezil Hcl 5 Mg Tab) 5 mg PO BEDTIME [facility] Last Admin: 10/29/21 19:48 Dose: 5 mg Documented by: Furosemide (Furosemide 20 Mg Tablet) 20 mg PO DAILY [facility] Last Admin: 10/29/21 09:12 Dose: 20 mg Documented by: Insulin Human Regular (Insulin -Regular Human 50 Unit/0.5 Ml Ml) 0 unit SQ ACHS [facility]; Protocol Last Admin: 10/29/21 19:46 Dose: Not Given Documented by: Isosorbide Mononitrate (Isosorbide [place] Sr 60 Mg Tab) 120 mg PO DAILY [facility] Last Admin: 10/29/21 09:12 Dose: 120 mg Documented by: Lidocaine (Lidocaine 4% Patch) 1 patch TOP DAILY [facility] Last Admin: 10/29/21 09:11 Dose: 1 patch Documented by: Lisinopril (Lisinopril 5 Mg Tab) 5 mg PO DAILY [facility] Last Admin: 10/29/21 09:13 Dose: 5 mg Documented by: Metoprolol Tartrate (Metoprolol Tar 25 Mg Tab) 12.5 mg PO BID 6AM 6PM [facility] Last Admin: 10/29/21 17:31 Dose: 12.5 mg Documented by: Morphine Sulfate (Morphine 2 Mg/Ml Syr) 2 mg IV Q6H PRN PRN Reason: Pain scale 5-7 (Moderate) Last Admin: 10/29/21 11:49 Dose: 2 mg Documented by: Ondansetron HCl (Ondansetron 4 Mg/2 Ml Vial) 4 mg IV Q6HP PRN PRN Reason: NAUSEA / VOMITING Last Admin: 10/28/21 01:03 Dose: 4 mg Documented by: Sodium Chloride (Flush Normal Saline 10 Ml) 10 ml IV BID ANDRÉS Last Admin: 10/29/21 19:28 Dose: 10 ml Documented by: Assessment/ Plan: Nephrology No dyspnea No chest pain No acute events overnight Vitals, medications, blood work and imaging reviewed in the chart General: Oriented x3, Cooperative HEENT: Atraumatic Neck: Supple Respiratory: Clear to auscultation bilaterally Cardiovascular: No edema, Regular rate/rhythm Gastrointestinal: Soft and benign, Non-distended Musculoskeletal: No clubbing, No contractures Integumentary: No rashes, No cyanosis Neurological: Normal speech Blood work reviewed in the chart. Imagings Data: EXAM DESCRIPTION: RAD - Chest Single View - 10/27/2021 5:11 pm CLINICAL HISTORY: tachypnea, short of breath COMPARISON: October 25 TECHNIQUE: AP portable chest image was obtained 10/27/2021 5:11 pm . FINDINGS: No new mass or consolidation. Interstitial pattern matches comparison. Heart and vasculature are normal. No measurable pleural effusion and no pneumothorax. No acute bony abnormality seen. No acute aortic findings suspected. IMPRESSION: No acute cardiopulmonary process. No significant change from comparison study. EXAM DESCRIPTION: US - Extrem Venous W Compress Piero - 10/27/2021 2:19 pm CLINICAL HISTORY: r/o DVT COMPARISON: None. TECHNIQUE: Real-time sonographic evaluation of the bilateral lower extremity common femoral, superficial femoral, popliteal and posterior tibial veins was performed FINDINGS: Normal compressibility, flow augmentation, phasic flow and spontaneous flow are identified in the left and right lower extremity common femoral, superficial femoral, popliteal and posterior tibial veins. No intraluminal filling defects seen. IMPRESSION: No DVT in either lower extremity. Conclusions/Impression: ALBA likely DARIUS CKD III -No NSAIDs -Maintain oral intake HTN with CKD/ CHF -Continue Lisinopril Systolic CHF, Chronic -Continue Lasix DM II with CKD -RISS
== END 2021-10-29 21:45 | disposition home health service (06) | DRG 247 ==
LOC: ER 01:53 → ERHOLD 03:41 → 2ND 03:54 → OBSVTOIN 10-26 09:41
PROVIDERS: ADMIT Hospitalist; ATTEND Internal Medicine
PROC: 027035Z Dilation of Coronary Artery, One Artery with Two Drug-eluting Intraluminal Devices, Percutaneous Approach (ICD-10-PCS; principal; 2021-10-28)
DX: I25.119 Atherosclerotic heart disease of native coronary artery with unspecified angina pectoris (principal); I50.22 Chronic systolic (congestive) heart failure; I13.0 Hypertensive heart and chronic kidney disease with heart failure and stage 1 through stage 4 chronic kidney disease, or unspecified chronic kidney disease; N17.9 Acute kidney failure, unspecified; N18.30 Chronic kidney disease, stage 3 unspecified; E11.22 Type 2 diabetes mellitus with diabetic chronic kidney disease; N28.9 Disorder of kidney and ureter, unspecified; I25.2 Old myocardial infarction; E78.5 Hyperlipidemia, unspecified; Z95.5 Presence of coronary angioplasty implant and graft; Z60.2 Problems related to living alone; Z87.891 Personal history of nicotine dependence; Z79.82 Long term (current) use of aspirin; Z79.4 Long term (current) use of insulin; Z86.73 Personal history of transient ischemic attack (TIA), and cerebral infarction without residual deficits; Z79.899 Other long term (current) drug therapy; Z20.822 Contact with and (suspected) exposure to COVID-19
CPT/HCPCS: 36415; 71045; 80048; 80053; 80061; 80076; 82947; 83735; 83880; 84439; 84443; 84484; 85025; 85347; 85379; 85610; 93005; 93306; 93458; 93970; 96374; 99285; C1725; C1877; C1893; C9600; G0378; J0583; J1644; J2250; J2270; J2405; J3010; J7030; J7040; J7799; U0003

== ENCOUNTER 2021-11-29 23:47 | Inpatient (IN) | payer OTHER ==
--- OUTSIDE RECORDS SUMMARY | 2021-11-30 00:03 | XMS REPORT | Continuity of Care Document ---
:1940 Author Organization [facility] t Address [address] [place] [address] Care Team Providers Name Role Phone Andres Briscoe DO Primary Care Physician Doctor Unassigned, Name Attending Clinician Unavailable Candace STONER, Adela Attending Clinician Unavailable ALYSSA Attending Clinician Unavailable Stacy Drake MD Attending Clinician Alyssa WOOTEN Attending Clinician Pcp, Does Not Have A Attending Clinician Ceasar Meeks Attending Clinician Umang WOOTEN Attending Clinician Justina Flores MD Attending Clinician Ariel STONER Attending Clinician Babar GONG Attending Clinician Justina FLORES Attending Clinician Unavailable Kamryn GONG, Sharon Attending Clinician Sharon HARRY Attending Clinician Unavailable Rajrenu_P Attending Clinician Unavailable Silvina STONER, M Attending Clinician Julio Cesar WOOTEN Attending Clinician JULIO CESAR Attending Clinician Unavailable Ricardo STONER Attending Clinician Unavailable Simi Urrutia MD Attending Clinician Steven WOOTEN Attending Clinician STEVEN Attending Clinician Unavailable CHAVA Attending Clinician Unavailable Chava WOOTEN Attending Clinician Wes STONER Attending Clinician ALYSSA Admitting Clinician Unavailable Alyssa WOOTEN Admitting Clinician Justina Flores MD Admitting Clinician Justina FLORES Admitting Clinician Unavailable Sharon HARRY Admitting Clinician Unavailable Clair Admitting Clinician Unavailable Julio Cesar WOOTEN Admitting Clinician JULIO CESAR Admitting Clinician Unavailable Steven WOOTEN Admitting Clinician STEVEN Admitting Clinician Unavailable Payers Payer Name Policy Type Policy Number Effective Date Expiration Date [facility] [id number] 2019 DUAL COMPLETE HMO 00:00:00 MEDICAID OF [place] [id number] 2018 00:00:00 Problems Condition Condition Condition Status Onset Resolution Last Treating Co mments Source Name Details Category Date Date Treatment Clinician Date Unstable Unstable Disease Active 2020-0 Unive rs angina angina 5-07 ity of 00:00: [place] [address] Medical Branch ALBA (acute ALBA (acute Disease Active 2020-0 U nivers kidney kidney 4-21 ity of injury) injury) 00:00: [place] [address] Medical Branch Chest pain Chest pain Disease Active 2020-0 U nivers 4-21 ity of 00:00: [place] 00 Medical Branch Chest pain Chest pain Disease Active 2020 U 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 4-15 it y of 00:00: [place] 00 Medical Branch 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 00:00: [place] and and 00 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 2018-11 U nivers lobe lobe 1-06 ity of pneumonia pneumonia 00:00: [facility] s 00 Medical Branch PNA PNA Disease Active 2018-11 Univers (pneumonia (pneumonia 0-25 it y of ) ) 00:00: [place] 00 Medical Branch Acute on Acute on Disease Active 2018-11 Unive rs chronic chronic 0-25 ity of combined combined 00:00: [place] systolic systolic 00 Medica l and and Branch 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 Dyspnea Dyspnea Disease Active 2018-11 Univers 0-23 ity of 00:00: [place] Medical Branch CHF CHF Disease Active Univers exacerbati exacerbati 2-17 it y of on on 00:00: [place] Medical Branch Essential Essential Disease Active Uni vers hypertensi hypertensi 2-17 it y of on on 00:00: [place] 00 Medical Branch 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 00:00: [place] without without 00 Medical complicati complicati Br anch on, on, without without long-term long-term current current use of use of insulin insulin CHF CHF Disease Active Univers exacerbati exacerbati 2-17 it y of on on 00:00: [place] Medical Branch Acute on Acute on Disease Active Unive rs chronic chronic 1-28 ity of systolic systolic 00:00: [place] CHF CHF 00 Medical (congestiv (congestiv Br anch e heart e heart failure) failure) Elevated Elevated Disease Active Unive rs troponin I troponin I 1-27 it y of level level 00:00: [place] 00 Medical Branch DE LA CRUZ DE LA CRUZ Disease Active Univers (dyspnea (dyspnea 1-27 ity of on on 00:00: [place] exertion) exertion) 00 Medi birdie Branch Coronary Coronary Disease Active Unive rs artery artery 1-27 ity of disease disease 00:00: [place] involving involving 00 Medi birdie [place] Branch 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-12 ity of kidney kidney 00:00: [place] disease disease 00 Medical Branch Coronary Coronary Disease Active Unive rs artery artery 1- ity of disease disease 00:00: [place] involving involving 00 Medi birdie [place] Branch 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 [...] rs polyneurop polyneurop 4-10 it y of athy athy 00:00: [place] associated associated 00 Me dical with type with type Bran ch 2 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 4-10 it y of athy athy 00:00: [place] associated associated 00 Me dical with type with type Bran ch 2 diabetes 2 diabetes mellitus mellitus Routine Routine Problem Active [facility] On home On home Problem Active [facility] oxygen oxygen [facility] therapy therapy [facility] Coronary Coronary Problem Active [facility] artery artery [facility] - disease disease Memoria involving involving l [place] Outpati coronary coronary ent artery of artery of Clin ics [place] heart, heart, angina angina presence presence unspecifie unspecifie d d S/P S/P Problem Active [facility] coronary coronary [facility] - artery artery Memoria stent stent l placement placement Outp ati ent Clinics 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 Luke s - diabetes diabetes Memori a mellitus mellitus l with with Outpati hyperglyce hyperglyce en t [facility] Clinics Need for Need for Problem Active [facility] dental dental [facility] care care [facility] History of History of Problem Active [facility] prostate prostate [facility] cancer cancer [facility] Alzheimer Alzheimer Problem Active [facility] disease disease [facility] Diabetes Diabetes Problem Active [facility] Heart Heart Problem Active [facility] disease disease [facility] Heart Heart Problem Active [facility] attack attack [facility] Blurry Blurry Problem Active [facility] vision, vision, [facility] - bilateral bilateral Manjit greg l [facility] Chronic Chronic Problem Active [facility] pain pain [facility] - syndrome syndrome Memori a l [facility] Allergies, Adverse Reactions, Alerts Allergy Allergy Status Severity Reaction(s) Onset Inactive Treating Comm ents Source Name Type Date Date Clinician NO KNOWN Drug Active Univers ALLERGIE Class ity of S [facility] Social History Social Habit Start Date Stop Date Quantity Comments Source [facility] SARS[facility]event) [facility] History of tobacco User of [facility] sity of use smokeless [facility] tobacco [place] Alcohol intake 2021-10-31 2021-10-31 Current University of 00:00:00 00:00:00 non-drinker of [facility] alcohol Branch (finding) Cigarettes smoked 2018-12-11 2018-12-11 Univers ity of current (pack per 00:00:00 00:00:00 ) - Reported Branch Cigarette 2018-12-11 2018-12-11 University of pack-years 00:00:00 00:00:00 [facility] Tobacco use and 2018-12-11 2018-12-11 Former user Universi ty of exposure 00:00:00 00:00:00 [facility] Sex [birth year] At [birth year] Universit y of 00:00:00 00:00:00 [facility] Smoking Status Start Date Stop Date Source Former smoker 2018-12-11 00:00:00 2018-12-11 00:00:00 Universi ty of [facility] Medications Ordered Filled Start Stop Current Ordering Indication Dosage Frequency Signature Comments Components Source Medication Medication Date Date Medication? Clinician (SIG) Name Name aspirin 81 2020-11- Yes [id number] 81mg Take 1 Univers mg chewable 01-04 tablet by it y of tablet 00:00: 05:59 mouth [place] 00 :00 daily for Medical 30 days. Branch clopidogreL 2020-11- Yes [id number] 75mg Take 1 Univers 75 mg 01-04 tablet by ity of tablet 00:00: 05:59 mouth [place] 00 :00 daily for Medical 30 days. Branch furosemide 2020-11- Yes [id number] 20mg Take 1 Univers 20 mg 01-04 tablet by ity of tablet 00:00: 05:59 mouth [place] 00 :00 daily for Medical 30 days. Branch aspirin 81 2020-11- Yes [id number] 81mg Take 1 Univers mg chewable 01-04 tablet by it y of tablet 00:00: 05:59 mouth [place] 00 :00 daily for Medical 30 days. Branch clopidogreL 2020-11- Yes [id number] 75mg Take 1 Univers 75 mg 01-04 tablet by ity of tablet 00:00: 05:59 mouth [place] 00 :00 daily for Medical 30 days. Branch furosemide 2020-11- Yes [id number] 20mg Take 1 Univers 20 mg 01-04 tablet by ity of tablet 00:00: 05:59 mouth [place] 00 :00 daily for Medical 30 days. Branch aspirin 81 2020-11- Yes [id number] 81mg Take 1 Univers mg chewable 01-04 tablet by it y of tablet 00:00: 05:59 mouth [place] 00 :00 daily for Medical 30 days. Branch clopidogreL 2020-11- Yes [id number] 75mg Take 1 Univers 75 mg 01-04 tablet by ity of tablet 00:00: 05:59 mouth [place] 00 :00 daily for Medical 30 days. Branch furosemide 2020-11- Yes [id number] 20mg Take 1 Univers 20 mg 01-04 tablet by ity of tablet 00:00: 05:59 mouth [place] 00 :00 daily for Medical 30 days. Branch trazodone 2020-11 Yes 50mg Take 50 mg Un mel HCl 2-18 by mouth ity of (TRAZODONE 18:25: every [place] ORAL) 21 evening. Medical Branch nitroglycer 2020-11 Yes .4mg Take 0.4 Un mel in 2-18 mg by ity of (NITRO-TIME 18:25: mouth [place] ORAL) 21 needed for Medical Other Branch (chest pain every 5 minutes x 3 doses). potassium 2020-11 Yes 10meq Take 10 Univ ers chloride 10 2-18 mEq by ity of mEq CR 18:25: mouth [place] tablet 21 daily. Medical Branch donepeziL 5 2020-11 Yes 5mg Take 5 mg U nivers mg tablet 2-18 by mouth ity of 18:25: at [place] 21 bedtime. Medical Branch atorvastati 2020-11 Yes 40mg Take 40 mg Univers n 40 mg 2-18 by mouth ity of tablet 18:25: at [place] 21 bedtime. Medical Branch trazodone 2020-11 Yes 50mg Take 50 mg Un mel HCl 2-18 by mouth ity of (TRAZODONE 18:25: every [place] ORAL) 21 evening. Medical Branch nitroglycer 2020-11 Yes .4mg Take 0.4 Un mel in 2-18 mg by ity of (NITRO-TIME 18:25: mouth [place] ORAL) 21 needed for Medical Other Branch (chest pain every 5 minutes x 3 doses). potassium 2020-11 Yes 10meq Take 10 Univ ers chloride 10 2-18 mEq by ity of mEq CR 18:25: mouth [place] tablet 21 daily. Medical Branch donepeziL 2020-11 Yes 5mg Take 5 mg U nivers mg tablet 2-18 by mouth ity of 18:25: at [place] 21 bedtime. Medical Branch atorvastati 2020-11 Yes 40mg Take 40 mg Univers n 40 mg 2-18 by mouth ity of tablet 18:25: at [place] 21 bedtime. Medical Branch trazodone 2020-11 Yes 50mg Take 50 mg Un mel HCl 2-18 by mouth ity of (TRAZODONE 18:25: every [place] ORAL) 21 evening. Medical Branch nitroglycer 2020-11 Yes .4mg Take 0.4 Un mel in 2-18 mg by ity of (NITRO-TIME 18:25: mouth as [place] ORAL) 21 needed for Medical Other Branch (chest pain every 5 minutes x 3 doses). potassium 2020-11 Yes 10meq Take 10 Univ ers chloride 10 2-18 mEq by ity of mEq CR 18:25: mouth [place] tablet 21 daily. Medical Branch donepeziL 2020-11 Yes 5mg Take 5 mg U nivers mg tablet 2-18 by mouth ity of 18:25: at [place] 21 bedtime. Medical Branch atorvastati 2020-11 Yes 40mg Take 40 mg Univers n 40 mg 2-18 by mouth ity of tablet 18:25: at [place] 21 bedtime. Medical Branch metoprolol 2020-11 Yes 37.5mg 37.5 mg, U nivers succinate 2-18 Oral, BID, ity of XL (TOPROL 14:30: First dose [place] XL) tablet 00 (after Medical 37.5 mg last Branch modificati on) on 11/02/21 at 0830, Until Discontinu ed, Routine isosorbide 2020-11- No 120mg Take 120 U nivers mononitrate 2-18 12-18 mg by ity of 120 mg 24 14:14: 00:00 mouth [place] hr tablet 53 :00 daily. Medical Branch LISINOPRIL 2020-11 No 5mg Take 5 mg U nivers ORAL 2-18 12-18 by mouth ity of 14:14: 00:00 daily. [place] 53 :00 Medical Branch isosorbide 2020-11 Yes 60mg 60 mg, Unive rs mononitrate 2-18 Oral, BID, it y of (IMDUR) 24 14:00: First dose [place] hr tablet 00 (after Medical 60 mg last Branch modificati on) on 11/02/21 at 0800, Until Discontinu ed, Routine QUEtiapine 2020-11 Yes [id number] 25mg Take 1 Univers 25 mg 2-18 tablet by ity of tablet 00:00: mouth at [place] 00 bedtime as Medical needed Branch (agitation /insomnia) . QUEtiapine 2020-11 Yes [id number] 25mg Take 1 Univers 25 mg 2-18 tablet by ity of tablet 00:00: mouth at [place] 00 bedtime as Medical needed Branch (agitation /insomnia) . QUEtiapine 2020-11 Yes [id number] 25mg Take 1 Univers 25 mg 2-18 tablet by ity of tablet 00:00: mouth at [place] 00 bedtime as Medical needed Branch (agitation /insomnia) . isosorbide 2020-11- Yes [id number] 60mg Take 1 Univers mononitrate 2-18 01-18 tablet by it y of 60 mg 24 hr 00:00: 05:59 mouth 2 [place] tablet 00 :00 (two) Medical times Branch daily for 30 days. metoprolol 2020-11- Yes [id number] 37.5mg Take 1.5 Univers succinate 2-18 -18 tablets by ity of XL 25 mg 24 00:00: 05:59 mouth 2 [place] hr tablet 00 :00 (two) Medical times Branch daily for 30 days. isosorbide 2020-11- Yes [id number] 60mg Take 1 Univers mononitrate 2-18 -18 tablet by it y of 60 mg 24 hr 00:00: 05:59 mouth 2 [place] tablet 00 :00 (two) Medical times Branch daily for 30 days. metoprolol 2020-11- Yes [id number] 37.5mg Take 1.5 Univers succinate 2-18 -18 tablets by ity of XL 25 mg 24 00:00: 05:59 mouth 2 [place] hr tablet 00 :00 (two) Medical times Branch daily for 30 days. isosorbide 2020-11- Yes [id number] 60mg Take 1 Univers mononitrate 2-18 -18 tablet by it y of 60 mg 24 hr 00:00: 05:59 mouth 2 [place] tablet 00 :00 (two) Medical times Branch daily for 30 days. metoprolol 2020-11- Yes [id number] 37.5mg Take 1.5 Univers succinate 2-18 -18 tablets by ity of XL 25 mg 24 00:00: 05:59 mouth 2 [place] hr tablet 00 :00 (two) Medical times Branch daily for 30 days. aspirin 2020-11 Yes 81mg 81 mg, Univers chewable 2-17 Oral, ity of tablet 81 15:00: DAILY, [place] mg 00 First dose Medical on Thu Branch 11/01/21 at 0900, Until Discontinu ed, Routine furosemide 2020-11 Yes 20mg 20 mg, Unive rs (LASIX) 2-17 Oral, ity of tablet 20 14:30: DAILY, [place] mg 00 First dose Medical on Thu Branch 11/01/21 at 0830, Until Discontinu ed, Routine metoprolol 2020-11- No 25mg 25 mg, Univ ers succinate 2-17 12-18 Oral, BID, ity of XL (TOPROL 14:30: 14:17 First dose [place] XL) tablet 00 :36 on [facility] Medical 25 mg 11/01/21 Branch at 0830, Until Discontinu ed, Routine QUEtiapine 2020-11 Yes 25mg 25 mg, Unive rs (SEROQUEL) 2-17 Oral, ity of tablet 25 09:22: QHSPRN, [place] mg 01 Starting Medical on Fri Branch 11/01/21 at 0322, Until Discontinu ed, Routine, agitation/ insomnia donepeziL 2020-11 Yes 5mg 5 mg, Univers (ARICEPT) 2-17 Oral, QHS, ity of tablet 5 mg 03:00: First dose [place] 00 on [facility] Medical 10/31/21 Branch at 2100, Until Discontinu ed, Routine atorvastati 2020-11 Yes 40mg 40 mg, Univ ers n (LIPITOR) 2-17 Oral, QHS, it y of tablet 40 03:00: First dose [place] mg 00 on [facility] Medical 10/31/21 Branch at 2100, Until Discontinu ed, Routine clopidogreL 2020-11 Yes 75mg 75 mg, Univ ers (PLAVIX) 2-16 Oral, ity of tablet 75 23:30: DAILY, [place] mg 00 First dose Medical on [facility] Branch 10/31/21 at 1730, Until Discontinu ed, Routine sulfur 2020-11- No [id number] 5mL 5 mL, Unive rs hexafluorid -10-31 Intravenou i ty of e microsphr 17:00: 17:00 s, ONCE, 1 [place] (LUMASON) 00 :00 dose, On Medica l injection 5 Madhavi Branch mL 10/31/21 at 1100, Routine
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 : MEGGAN CAMARA isosorbide 2020-11- No 120mg 120 mg, Un mel mononitrate 01-01- Oral, ity of (IMDUR) 24 15:00: 14:16 DAILY, [place] hr tablet 00 :38 First dose Medi birdie 120 mg on Madhavi Branch 10/31/21 at 0900, Until Discontinu ed, Routine Sliding 2020-11 Yes Subcutaneo Univ ers Scale 2-16 us, AC+HS, ity of Insulin-Reg 13:30: First dose [place] ular + Fsbg 00 on Madhavi Medica l Testing 10/31/21 Branch at 0730, Until Discontinu ed, Routine enoxaparin 2020-11- No 1mg/kg 80 mg Uni vers (LOVENOX) 01-0118 (rounded ity o f injection 09:00: 14:17 from 78 mg [place] 80 mg 00 :35 = 1 mg/kg Medical ?78 kg), [facility], Q24H, First dose on Madhavi 10/31/21 at 0300, Until Discontinu ed, Routine aspirin 2020-11- No 325mg 325 mg, Unive rs tablet 325 01-01 Oral, ity of mg 08:45: 08:15 ONCE, 1 [place] 00 :00 dose, On Medical [facility] Branch 10/31/21 at 0245, Routine glucagon 2020-11 Yes 1mg 1 mg, Univers (GLUCAGEN - Intramuscu ity of DIAGNOSTIC 08:16: lar, PRN, [place] KIT) 15 Starting Medical injection 1 on [facility] mg 10/31/21 at 0216, Until Discontinu ed, ADAMA, Blood Glucose < or = 70 mg/dL and patient is unable to swallow or has mental changes. dextrose 50 2020-11 Yes 25mL 25 mL, Univ ers % in water -16 Slow IV ity of (D50W) 08:16: Push, PRN, [place] injection 14 Starting Medica l 25 mL on [facility] Branch 10/31/21 at 0216, Until Discontinu ed, ADAMA, Blood Glucose < or = 70 mg/dL and patient is unable to swallow or has mental status changes. morpHINE 2020-11- No 2mg 2 mg, Slow Un mel injection 2 01-0117 IV Push, ity of mg 07:36: 05:31 Q4HPRN, [place] 09 :07 Starting Medical on [facility] Branch 10/31/21 at 0136, Until Madhavi 10/31/21 at 2331, Routine, Pain (scale 7-10) nitroglycer 2020-11 Yes .4mg 0.4 mg, Uni vers in 2-16 Sublingual ity of (NITROSTAT) 05:32: , Q5MIN [place] as sublingual 22 PRN, Medical tablet 0.4 Starting Branc h mg on 10/30/21 at 2332, Until Discontinu ed, Routine, Chest pain ondansetron 2020-11 Yes 4mg 4 mg, Slow Univers (ZOFRAN 2-16 IV Push, ity of (PF)) 05:32: Q6HPRN, [place] injection 4 10 Starting Medi birdie mg on Thu Branch 10/30/21 at 2332, Until Discontinu ed, Routine, Nausea and Vomiting (N/V) acetaminoph 2020-11 Yes 650mg 650 mg, Un mel en 2-16 Oral, ity of (TYLENOL) 05:31: Q6HPRN, [place] tablet 650 56 Starting Medic al mg on Thu Branch 10/30/21 at 2331, Until Discontinu ed, Routine, Pain (scale 1-3) acetaminoph 2020-11 Yes [id number] 1{tbl} 1 tablet, Univers en-codeine 2-16 Oral, ity of (TYLENOL 05:29: Q6HPRN, [place] #3) 300-30 29 Starting Medic al mg tablet 1 on Thu Branch tablet 10/30/21 at 2329, Until Discontinu ed, Routine, Pain (scale 4-6), Pain (scale 7-10) sodium 2020-11 Yes 5mL 5 mL, Univers chloride 2-16 Intravenou ity o f (NS) 01:21: s, PRN, [place] injection 5 02 Starting Medi birdie mL on Thu Branch 10/30/21 at 1921, Until Discontinu ed, Routine, IV line flushing morpHINE 2020- No 4mg 4 mg, Slow Un mel injection 4 04-25-10 IV Push, ity of mg 23:15: 22:23 ONCE, 1 [place] 00 :00 dose, Madhavi Medical 04/25/21 at Branch 1815, STAT acetaminoph 2020-2020- No 1{tbl} 1 tablet, Univers en-codeine 6- 06-10 Oral, ity of (TYLENOL 19:00: 17:52 ONCE, 1 [place] #3) 300-30 00 :00 dose, Madhavi Medi birdie mg tablet 1 04/25/21 at Br anch tablet 1400, ADAMA cyclobenzap 2020- No 10mg 10 mg, Uni vers rine 6-10 06-10 Oral, ONCE ity of (FLEXERIL) 19:00: 17:52 NOW, 1 [place] tablet 10 00 :00 dose, Madhavi Medic al mg 04/25/21 at Branch 1400, ADAMA cyclobenzap 0 Yes [id number] 5mg Take 1 Univers rine 5 mg 6-10 tablet by ity o f tablet 00:00: mouth 3 [place] 00 (three) Medical times Branch daily. cyclobenzap Yes [id number] 5mg Take 1 Univers rine 5 mg 6-10 tablet by ity o f tablet 00:00: mouth 3 [place] 00 (three) Medical times Branch daily. cyclobenzap Yes [id number] 5mg Take 1 Univers rine 5 mg [...] left sided low back pain cyclobenzap Yes [id number] 5mg Take 1 Univers rine 5 mg [...] left sided low back pain cyclobenzap Yes [id number] 5mg Take 1 Univers rine 5 mg 6-10 tablet by ity o f tablet 00:00: mouth 3 [place] 00 (three) Medical times Branch daily. acetaminoph 2020- No [id number] 1{tbl} Take 1 U nivers en-codeine 6-10 12-18 tablet by ity of 300-30 mg 00:00: 00:00 mouth [place] tablet 00 :00 every 6 Medical (six) Branch hours as needed for Pain (scale 4-6). Indication s: acute pain, left sided low back pain acetaminoph 2020-0 Yes [id number] 1{tbl} Take 1 Un mel en-codeine 8-11 tablet by ity of (TYLENOL-CO 00:00: mouth [place] DEINE #3) 00 every 6 Medical 300-30 mg (six) Branch tablet hours as needed for Pain (scale 7-10). Indication s: acute pain acetaminoph 2020-0 Yes [id number] 1{tbl} Take 1 Un mel en-codeine 8-11 tablet by ity of (TYLENOL-CO 00:00: mouth [place] DEINE #3) 00 every 6 Medical 300-30 mg (six) Branch tablet hours as needed for Pain (scale 7-10). Indication s: acute pain acetaminoph 2020-0 Yes [id number] 1{tbl} Take 1 Un mel en-codeine 8-11 tablet by ity of (TYLENOL-CO 00:00: mouth [place] DEINE #3) 00 every 6 Medical 300-30 mg (six) Branch tablet hours as needed for Pain (scale 7-10). Indication s: acute pain acetaminoph 2020-0 Yes [id number] 1{tbl} Take 1 Un mel en-codeine 8-11 tablet by ity of (TYLENOL-CO 00:00: mouth [place] DEINE #3) 00 every 6 Medical 300-30 mg (six) Branch tablet hours as needed for Pain (scale 7-10). Indication s: acute pain acetaminoph 2020-0 Yes [id number] 1{tbl} Take 1 Un mel en-codeine 8-11 tablet by ity of (TYLENOL-CO 00:00: mouth [place] DEINE #3) 00 every 6 Medical 300-30 mg (six) Branch tablet hours as needed for Pain (scale 7-10). Indication s: acute pain acetaminoph 2020-0 2020- No 1000mg 1,000 mg, Univers en 05-24 Oral, ity of (TYLENOL) 16:00: 14:49 ONCE, 1 [place] tablet 00 :00 dose, Madhavi Medical 1,000 mg 05/24/20 at Branch 1100, ADAMA traMADol 50 2020-0 2020- No 4647 50mg Take 1 Uni vers mg tablet 7-09 07-15 tablet by ity of 00:00: 04:59 mouth [place] 00 :00 every 8 Medical (eight) Branch hours as needed for Pain (scale 4-6) for up to 5 days. Indication s: acute pain insulin 2020-0 Yes 30U 30 Units, Unive rs glargine - Subcutaneo ity o f (LANTUS 14:00: us, DAILY, [place] U-100) 00 First dose Medical injection on [facility] Branch 30 Units 03/24/20 at 0900, Until Discontinu ed clopidogreL 2020-0 Yes 75mg 75 mg, Univ ers (PLAVIX) 03-24 Oral, ity of tablet 75 14:00: DAILY, [place] mg 00 First dose Medical on [facility] Branch 03/24/20 at 0900, Until Discontinu ed, Routine insulin 2020-0 Yes 30U 30 Units, Unive rs glargine 03-24 Subcutaneo ity o f (LANTUS 14:00: [place], DAILY, [place] U-100) 00 First dose Medical injection on [facility] Branch 30 Units 03/24/20 at 0900, Until Discontinu ed clopidogreL 2020-0 Yes 75mg 75 mg, Univ ers (PLAVIX) 03-24 Oral, ity of tablet 75 14:00: DAILY, [place] mg 00 First dose Medical on [facility] Branch 03/24/20 at 0900, Until Discontinu ed, Routine MULTIVITAMI 2020-0 2020- No Take by U nivers N ORAL 03-24 05-08 mouth. ity of 03:38: 00:00 [place] 54 :00 [facility] Branch MULTIVITAMI 2020-0 Yes Take by Un mel N ORAL 5- mouth. ity of 02:01: [place] 35 Medical Branch atorvastati 2020-0 Yes 40mg 40 mg, Univ ers n (LIPITOR) 5-09 Oral, QHS, it y of tablet 40 02:00: First dose [place] mg 00 on Thu Medical 03/23/20 at Branch 2100, Until Discontinu ed, Routine atorvastati 2020-0 Yes 40mg 40 mg, Univ ers n (LIPITOR) 5-09 Oral, QHS, it y of tablet 40 02:00: First dose [place] mg 00 on Thu Medical 03/23/20 at Branch 2100, Until Discontinu ed, Routine aspirin 81 2020-0 Yes [id number] 81mg Take 1 U nivers mg chewable 5-09 tablet by ity of tablet 00:00: mouth [place] 00 daily with Medical breakfast. Branch furosemide 2020-0 Yes [id number] 20mg Take 1 U nivers 20 mg 5-09 tablet by ity of tablet 00:00: mouth [place] 00 daily. Medical Branch aspirin 81 2020-0 Yes [id number] 81mg Take 1 U nivers mg chewable 5-09 tablet by ity of tablet 00:00: mouth [place] 00 daily with Medical breakfast. Branch furosemide 2020-0 Yes [id number] 20mg Take 1 U nivers 20 mg 5-09 tablet by ity of tablet 00:00: mouth [place] 00 daily. Medical Branch aspirin 81 2020-0 Yes [id number] 81mg Take 1 U nivers mg chewable 5-09 tablet by ity of tablet 00:00: mouth [place] 00 daily with Medical breakfast. Branch furosemide 2020-0 Yes [id number] 20mg Take 1 U nivers 20 mg 5-09 tablet by ity of tablet 00:00: mouth [place] 00 daily. Medical Branch aspirin 81 2020-0 Yes [id number] 81mg Take 1 U nivers mg chewable 5-09 tablet by ity of tablet 00:00: mouth [place] 00 daily with Medical breakfast. Branch furosemide 2020-0 Yes [id number] 20mg Take 1 U nivers 20 mg 5-09 tablet by ity of tablet 00:00: mouth [place] 00 daily. Medical Branch aspirin 81 2020-0 Yes [id number] 81mg Take 1 U nivers mg chewable 5-09 tablet by ity of tablet 00:00: mouth [place] 00 daily with Medical breakfast. Branch furosemide 2020-0 Yes [id number] 20mg Take 1 U nivers 20 mg 5-09 tablet by ity of tablet 00:00: mouth [place] 00 daily. Medical Branch aspirin 81 2020-0 Yes [id number] 81mg Take 1 U nivers mg chewable 5-09 tablet by ity of tablet 00:00: mouth [place] 00 daily with Medical breakfast. Branch furosemide 2020-0 Yes [id number] 20mg Take 1 U nivers 20 mg 5-09 tablet by ity of tablet 00:00: mouth [place] 00 daily. Medical Branch aspirin 81 2020-0 Yes [id number] 81mg Take 1 U nivers mg chewable 5-09 tablet by ity of tablet 00:00: mouth [place] 00 daily with Medical breakfast. Branch furosemide 2020-0 Yes [id number] 20mg Take 1 U nivers 20 mg 5-09 tablet by ity of tablet 00:00: mouth [place] 00 daily. Medical Branch aspirin 81 2020-0 Yes [id number] 81mg Take 1 U nivers mg chewable 5-09 tablet by ity of tablet 00:00: mouth [place] 00 daily with Medical breakfast. Branch furosemide 2020-0 Yes [id number] 20mg Take 1 U nivers 20 mg 5-09 tablet by ity of tablet 00:00: mouth [place] 00 daily. Medical Branch aspirin 81 2020-0 Yes [id number] 81mg Take 1 U nivers mg chewable 5-09 tablet by ity of tablet 00:00: mouth [place] 00 daily with Medical breakfast. Branch furosemide 2020-0 Yes [id number] 20mg Take 1 U nivers 20 mg 5-09 tablet by ity of tablet 00:00: mouth [place] 00 daily. Medical Branch aspirin 81 2020-0 2021- No [id number] 81mg Take 1 [facility] mg chewable 5- 12-18 tablet by it y of tablet 00:00: 00:00 mouth [place] 00 :00 daily with Medical breakfast. Branch furosemide 2020-0 2021- No [id number] 20mg Take 1 [facility] 20 mg 5-09 12-18 tablet by ity of tablet 00:00: 00:00 mouth [place] 00 :00 daily. Medical Branch isosorbide 2020-0 2020- No [id number] 90mg Take 3 [facility] mononitrate 5- 05-08 tablets by i ty of 30 mg 24 hr 00:00: 00:00 [place] 00 :00 daily. Medical Branch isosorbide 2020-0 2020- No [id number] 90mg Take 3 [facility] mononitrate 5-09 05-08 tablets by i ty of 30 mg 24 hr 00:00: 00:00 [place] tablet 00 :00 daily. Medical Branch maalox/lido 2020-0 2020- No 5mL 5 mL, Univ ers sydni 2 5-08 05-08 Oral, ity of %viscous 20:45: 20:56 ONCE, 1 [place] 1:1 00 :00 dose, Fri Medical suspension 03/23/20 at [facility] (COMPOUNDED 1545, ) Routine maalox/lido 2020-0 2020- No 5mL 5 mL, Univ ers sydni 2 5-08 05-08 Oral, ity of %viscous 20:45: 20:56 ONCE, 1 [place] 1:1 00 :00 dose, Fri Medical suspension 03/23/20 at [facility] (COMPOUNDED 1545, ) Routine acetaminoph 2020-0 Yes [...] 2mL 2 mL, IV Un mel lipid 03-23 Push, ity of microsphere 15:30: 14:00 ONCE, 1 [place] 00 :[place] dose, Fri Medical (DEFINITY) 03/23/20 at [facility] injection 2 1030, mL Routine perflutren 2020-0 2020- No 2mL 2 mL, IV Un mel lipid 03-23 Push, ity of microsphere 15:30: 14:00 ONCE, [...] Yes 25mg 25 mg, Unive rs succinate 08 Oral, BID, ity of XL (TOPROL 13:00: [...] No 300mg 300 mg, U nivers (PLAVIX) 03-23- Oral, ity of tablet 300 08:30: 07:48 ONCE, 1 [place] mg 00 :00 dose, Thu Medical 03/23/20 at Branch 0330, Routine morpHINE 2020-0 Yes 2mg 2 mg, Slow Uni vers injection 2 -08 IV Push, ity of mg 07:59: Q4HPRN, [place] [address] Starting Medical Thu03/23/20 Branch at 0259, Until Discontinu ed, Routine, Chest pain morpHINE 2020-0 Yes 2mg 2 mg, Slow Uni vers injection 2 -08 IV Push, ity of mg 07:59: Q4HPRN, [place] 14 Starting Medical 03/23/20 Branch at 0259, Until Discontinu ed, Routine, Chest pain magnesium 2020-0 2020- No 2g 2 g, IV Univ ers sulfate in 03-23 Piggyback, it y of water 2 07:45: 07:49 ONCE, 1 [place] gram/50 mL 00 :00 dose, Fri Medi birdie (4 %) 03/23/20 at [place] infusion 2 0245, g Routine KCL 2020-0 2020- No 40meq 40 mEq, Univers (KLOR-CON 03-23 Oral, ity of M20) tablet 07:45: 07:27 ONCE, 1 [place] 40 mEq 00 :00 dose, Fri Medical 03/23/20 at Branch 0245, Routine magnesium 2020-0 2020- No 2g 2 g, IV Univ ers sulfate in 03-23 Piggyback, it y of water 2 07:45: 07:49 ONCE, 1 [place] gram/50 mL 00 :00 dose, Fri Medi birdie (4 %) 03/23/20 at Branch infusion 2 0245, g Routine KCL 2020-0 2020- No 40meq 40 mEq, Univers (KLOR-CON 03-23 Oral, ity of M20) tablet 07:45: 07:27 ONCE, 1 [place] 40 mEq 00 :00 dose, Fri Medical 03/23/20 at Branch 0245, Routine heparin 2020-0 Yes 12U/kg/ 12 [...] (refer to continuous heparin drip order).
memantine-d 2019-0 2020- No 1{capsu Take 1 [facility] onepezil 03-23 le} capsule by ity of (NAMZARIC) 04:01: 00:00 mouth [place] 28-10 mg 03 :00 daily. Medical CSpX Branch folic 2019-0 2020- No Take by Univers acid/vit B 03-23-07 mouth. ity of complex and 04:01: 00:00 [place] C (B 03 :00 Medical COMPLEX-VIT Branch RAZA C-FOLIC ACID ORAL) Cholecalcif 2019-0 2020- No Take by U nivers ann, 03-23-07 mouth. ity of Vitamin D3, 04:01: 00:00 [place] 2,000 unit 03 :00 Medical capsule Branch thiamine 2019-0 2020- No 100mg Take 100 Uni vers (VITAMIN 03-23-07 mg by ity of B-1) 100 mg 04:01: 00:00 [place] tablet 03 :00 daily. Medical Branch NaCl 0.9% 2019-0 2020- No 10mL Inject 10 Un mel (NS) Soln 03-23-07 mL ity of 10 mL with 04:01: 00:00 intravenou [place] sodium 03 :00 sly once Medical chloride now. Branch 2.5 mEq/mL SolP 17.125 mEq memantine-d 2020-0 2020- No 1{capsu Take 1 [facility] onepezil [...] mouth. ity of Vitamin D3, 04:01: 00:00 [place] 2,000 unit 03 :00 Medical capsule Branch thiamine 2019-0 2020- No 100mg Take 100 Uni vers (VITAMIN 03-23- mg by ity of B-1) 100 mg 04:01: 00:00 [place] tablet 03 :00 daily. Medical Branch NaCl 0.9% 2019-0 2020- No 10mL Inject 10 Un mel (NS) Soln 03-23- mL ity of 10 mL with 04:01: 00:00 intravenou [place] sodium 03 :00 sly once Medical chloride now. Branch 2.5 mEq/mL SolP 17.125 mEq acetaminoph 2020-0 Yes 650mg 650 mg, Un mel en 08 Oral, ity of (TYLENOL) 02:51: Q6HPRN, [place] tablet 650 29 Starting Medic al mg Madhavi 03/22/20 Branch at 215, Until Discontinu ed, Routine, Pain (scale 1-3) acetaminoph 2020-0 Yes 650mg 650 mg, Un mel en 5-08 Oral, ity of (TYLENOL) 02:51: Q6HPRN, [place] tablet 650 29 Starting Medic al mg Madhavi 03/22/20 Branch at 2151, Until Discontinu ed, Routine, Pain (scale 1-3) nitroglycer 2020-0 Yes .4mg 0.4 mg, Uni vers in -08 Sublingual ity of (NITROSTAT) 02:38: , Q5MIN [place] sublingual 00 PRN, 3 Medical tablet 0.4 doses, Branch mg Starting [facility] 03/22/20 at 2138, Until Discontinu ed, ADAMA, Chest pain nitroglycer 2020-0 Yes .4mg 0.4 mg, Uni vers in 03-23 Sublingual ity of (NITROSTAT) 02:38: , Q5MIN [place] sublingual 00 PRN, 3 Medical tablet 0.4 doses, Branch mg Starting [facility] 03/22/20 at 2138, Until Discontinu ed, ADAMA, Chest pain aspirin 2020-0 2020- No 324mg 324 mg, Unive rs chewable 03-23-08 Oral, ity of tablet 324 02:37: 02:51 ONCE, 1 [place] mg 00 :00 dose, [facility] 03/22/20 at [place] 2145, ADAMA aspirin 2020-0 2020- No 324mg 324 mg, Unive rs chewable 03-23-08 Oral, ity of tablet 324 02:37: 02:51 ONCE, 1 [place] mg 00 :00 dose, [facility] 03/22/20 at [place] 2145, ADAMA isosorbide 2020-0 Yes [id number] 90mg Take 1.5 [facility] mononitrate 5-08 tablets by it y of 60 mg 24 hr 00:00: mouth [place] tablet 00 daily. [facility] isosorbide 2020-0 Yes [id number] 90mg Take 1.5 [facility] mononitrate 5-08 tablets by it y of 60 mg 24 hr 00:00: mouth [place] tablet 00 daily. [facility] isosorbide 2020-0 Yes [id number] 90mg Take 1.5 [facility] mononitrate 5-08 tablets by it y of 60 mg 24 hr 00:00: mouth [place] tablet 00 daily. [facility] isosorbide 2020-0 Yes [id number] 90mg Take 1.5 [facility] mononitrate 5-08 tablets by it y of 60 mg 24 hr 00:00: mouth [place] tablet 00 daily. [facility] isosorbide 2020-0 Yes [id number] 90mg Take 1.5 [facility] mononitrate 5-08 tablets by it y of 60 mg 24 hr 00:00: mouth [place] tablet 00 daily. [facility] isosorbide 2020-0 Yes [id number] 90mg Take 1.5 [facility] mononitrate 5-08 tablets by it y of 60 mg 24 hr 00:00: mouth [place] tablet 00 daily. Medical Branch isosorbide 2020-0 Yes [id number] 90mg Take 1.5 [facility] mononitrate 5-08 tablets by it y of 60 mg 24 hr 00:00: mouth [place] tablet 00 daily. Medical Branch isosorbide 2020-0 Yes [id number] 90mg Take 1.5 [facility] mononitrate 5-08 tablets by it y of 60 mg 24 hr 00:00: mouth [place] tablet 00 daily. Medical Branch isosorbide 2020-0 Yes [id number] 90mg Take 1.5 [facility] mononitrate 5-08 tablets by it y of 60 mg 24 hr 00:00: mouth [place] tablet 00 daily. Medical Branch isosorbide 2020-0 2021- No [id number] 90mg Take 1.5 [facility] mononitrate 5-08 12-18 tablets by i ty of 60 mg 24 hr 00:00: 00:00 [place] tablet 00 :00 daily. Medical Branch acetaminoph 2019-0 2020- No [id number] 975mg Take 3 [facility] en 325 mg 5-08 05-19 tablets by ity of tablet 00:00: 04:59 mouth [place] 00 :00 every 8 Medical (eight) Branch hours for 10 days. acetaminoph 2020-0 2020- No [id number] 975mg Take 3 [facility] en 325 mg 5-08 05-19 tablets by ity of tablet 00:00: 04:59 mouth [place] 00 :00 every 8 Medical (eight) Branch hours for 10 days. acetaminoph 2020-0 2020- No [id number] 975mg Take 3 [facility] en 325 mg 5-08 05-19 tablets by ity of tablet 00:00: 04:59 mouth [place] 00 :00 every 8 Medical (eight) Branch hours for 10 days. acetaminoph 2020-0 2020- No [id number] 975mg Take 3 [facility] en 325 mg 5-08 05-19 tablets by ity of tablet 00:00: 04:59 mouth [place] 00 :00 every 8 Medical (eight) Branch hours for 10 days. acetaminoph 2020-0 2020- No [id number] 975mg Take 3 Univers en 325 mg 5-08 05-19 tablets by ity of tablet 00:00: 04:59 mouth [place] 00 :00 every 8 Medical (eight) Branch hours for 10 days. lidocaine 5 2019-0 2020- No [id number] 1{patch Apply 1 [facility] % (700 5-08 05-09 } Patch to ity of mg/patch) 00:00: 04:59 area(s) [place] patch 00 :00 once now Medical for 1 Branch dose. lidocaine 5 2019-0 2019- No [id number] 1{patch Apply 1 [facility] % (700 5-08 05-09 } Patch to ity of mg/patch) 00:00: 04:59 area(s) [place] patch 00 :00 once now Medical for 1 Branch dose. lidocaine 5 2019-0 2019- No [id number] 1{patch Apply 1 [facility] % (700 5-08 05-08 } Patch to ity of mg/patch) 00:00: 00:00 area(s[place] patch 00 :00 once now Medical for 1 Branch dose. lidocaine 5 2019-0 2019- No [id number] 1{patch Apply 1 [facility] % (700 5-08 05-08 } Patch to ity of mg/patch) 00:00: 00:00 area(s) [place] patch 00 :00 once now Medical for 1 Branch dose. glipiZIDE 2020-0 Yes 5mg 5 mg, Univers (GLUCOTROL) 4-23 Oral, ity of tablet 5 mg 14:00: DAILY, [place] 00 [facility] on [facility]08[facility]20 [facility]00[facility] sp[facility] 2020-0 2020- No [id number] 12.5mg Take 0.5 Univers one 25 mg 4-23 05-24 tablets by ity of tablet 00:00: 04:59 mouth [place] 00 :00 daily for Medical 30 days. Branch spironolact 2020-0 2020- No [id number] 12.5mg Take 0.5 Univers one 25 mg 4-23 05-24 tablets by ity of tablet 00:00: 04:59 mouth [place] 00 :00 daily for Medical 30 days. Branch spironolact 2020-0 2020- No [id number] 12.5mg Take 0.5 Univers one 25 mg 4-23 05-24 tablets by ity of tablet 00:00: 04:59 mouth [place] 00 :00 daily for Medical 30 days. Branch spironolact 2020-0 2020- No [id number] 12.5mg Take 0.5 Univers one 25 mg 4-23 05-07 tablets by ity of tablet 00:00: 00:00 mouth [place] 00 :00 daily for Medical 30 days. Branch spironolact 2020-0 2020- No [id number] 12.5mg Take 0.5 Univers one 25 mg [...] 2019-0 Yes Take by Un mel ann, -22 [...] tablet 10 daily. Medical Branch NaCl 0.9% 2019-0 Yes 10mL [...] N ORAL 4-22 mouth. ity of 23:46: [place] [address] Medical Branch thiamine 2020-0 Yes 100mg Take [...] - mouth. ity of complex and 23:46: [facility] ( 10 Medical COMPLEX-VIT Branch RAZA C-FOLIC ACID ORAL) Cholecalcif 2020-0 Yes Take by Un mel ann, - mouth. ity of Vitamin D3, 23:46: [place] 2,000 unit 10 Medical capsule Branch MULTIVITAMI 2020-0 Yes Take by Un mel N ORAL -22 mouth. ity of 23:46: [place] [address] Medical Branch thiamine 2020-0 Yes 100mg Take [...] of 12.5 mg 20:15: 00:00 mouth 2 [place] 29 :00 (two) Medical times Branch daily. aspirin 81 2020-0 2020- No 81mg Take 81 mg Univers mg chewable 03-07-22 by mouth ity of tablet 20:15: 00:00 daily. [place] 29 :00 Medical Branch atorvastati 2019-0 2020- No 40mg Take 40 mg Univers n 40 mg 4-22 04-22 by mouth ity of tablet 20:15: 00:00 at [place] 29 :00 bedtime. Medical Branch temazepam 2020-0 Yes 15mg 15 mg, Univer s (RESTORIL) 4-22 Oral, ity of capsule 15 01:55: QHSPRN, [place] mg 38 Starting Medical [facility] 03/06/20 at 2055, Until Discontinu ed, Routine, Insomnia Insulin 2020-0 Yes [id number] 10U inject 10 [facility] Glargine 4-22 Units ity of 100 unit/mL 00:00: under the [place] (3 mL) 00 skin at Medical injection bedtime. Branch temazepam 2020-0 Yes [id number] 15mg Take 1 Un mel 15 mg 4-22 capsule by ity of capsule 00:00: mouth at [place] 00 bedtime as Medical needed for Branch Insomnia. furosemide 2020-0 Yes [id number] 40mg Take 1 [facility] 40 mg 4-22 tablet by ity of tablet 00:00: mouth [place] 00 every Medical morning Branch and evening. Magnesium 2020-0 Yes [id number] 400mg Take 400 Univers Oxide 420 4-22 mg by ity of mg Tab 00:00: mouth [place] 00 daily. Medical Branch potassium 2020-0 Yes [id number] 20meq Take 20 [facility] chloride 20 4-22 mEq by ity of mEq packet 00:00: mouth [place] 00 daily. Medical Take with Branch lasix in the morning isosorbide 2020-0 Yes [id number] 15mg Take 0.5 [facility] mononitrate 4-22 tablets by it y of 30 mg 24 hr 00:00: mouth [place] tablet 00 daily. Medical Hold if Branch systolic blood pressure less than 120 Insulin 2020-0 Yes [id number] 10U inject 10 [facility] Glargine 4-22 Units ity of 100 unit/mL 00:00: under the [place] (3 mL) 00 skin at Medical injection bedtime. Branch temazepam 2020-0 Yes [id number] 15mg Take 1 Un mel 15 mg 4-22 capsule by ity of capsule 00:00: mouth at [place] 00 bedtime as Medical needed for Branch Insomnia. furosemide 2020-0 Yes [id number] 40mg Take 1 [facility] 40 mg 4-22 tablet by ity of tablet 00:00: mouth [place] 00 every Medical morning Branch and evening. Magnesium 2020-0 Yes [id number] 400mg Take 400 [facility] Oxide 420 4-22 mg by ity of mg Tab 00:00: mouth [place] 00 daily. Medical Branch potassium 2020-0 Yes [id number] 20meq Take 20 [facility] chloride 20 4-22 mEq by ity of mEq packet 00:00: mouth [place] 00 daily. Medical Take with Branch lasix in the morning isosorbide 2020-0 Yes [id number] 15mg Take 0.5 [facility] mononitrate 4-22 tablets by it y of 30 mg 24 hr 00:00: mouth [place] tablet 00 daily. Medical Hold if Branch systolic blood pressure less than 120 Insulin 2020-0 Yes [id number] 10U inject 10 [facility] Glargine 4-22 Units ity of 100 unit/mL 00:00: under the [place] (3 mL) 00 skin at Medical injection bedtime. Branch temazepam 2020-0 Yes [id number] 15mg Take 1 Un mel 15 mg 4-22 capsule by ity of capsule 00:00: mouth at [place] 00 bedtime as Medical needed for Branch Insomnia. furosemide 2020-0 Yes [id number] 40mg Take 1 [facility] 40 mg 4-22 tablet by ity of tablet 00:00: mouth [place] 00 every Medical morning Branch and evening. Magnesium 2020-0 Yes [id number] 400mg Take 400 [facility] Oxide 420 4-22 mg by ity of mg Tab 00:00: mouth [place] 00 daily. Medical Branch potassium 2020-0 Yes [id number] 20meq Take 20 [facility] chloride 20 4-22 mEq by ity of mEq packet 00:00: mouth [place] 00 daily. Medical Take with Branch lasix in the morning isosorbide 2020-0 Yes [id number] 15mg Take 0.5 [facility] mononitrate 4-22 tablets by it y of 30 mg 24 hr 00:00: mouth [place] tablet 00 daily. Medical Hold if Branch systolic blood pressure less than 120 Insulin 2020-0 Yes [id number] 10U inject 10 [facility] Glargine 4-22 Units ity of 100 unit/mL 00:00: under the [place] (3 mL) 00 skin at Medical injection bedtime. Branch Magnesium 2020-0 Yes [id number] 400mg Take 400 [facility] Oxide 420 4-22 mg by ity of mg Tab 00:00: mouth [place] 00 daily. Medical Branch vitamin 2020-0 2020- No [id number] 1000ug Take 1 Univers B-12 1,000 4-22 07-22 tablet by ity of mcg tablet 00:00: 04:59 mouth [place] 00 :00 daily for Medical 90 days. Branch vitamin 2019- 2020- No [id number] 1000ug Take 1 Univers B-12 1,000 4-22 07-22 tablet by ity of mcg tablet 00:00: 04:59 mouth [place] 00 :00 daily for Medical 90 days. Branch vitamin 2019- 2020- No [id number] 1000ug Take 1 Univers B-12 1,000 4-22 07-22 tablet by ity of mcg tablet 00:00: 04:59 mouth [place] 00 :00 daily for Medical 90 days. Branch vitamin 2019- 2020- No [id number] 1000ug Take 1 Univers B-12 1,000 4-22 07-22 tablet by ity of mcg tablet 00:00: 04:59 mouth [place] 00 :00 daily for Medical 90 days. [place] glipiZIDE 5 2020- No [id number] 2.5mg Take 0.5 Univers mg tablet 4- 05-23 tablets by ity of 00:00: 04:59 mouth 2 [place] 00 :00 (two) Medical times Branch daily before breakfast and dinner for 30 days. metoprolol 2019- 2020- No [id number] 25mg Take 1 Univers succinate 4-22 05-23 tablet by ity of XL 25 mg 24 00:00: 04:59 mouth 2 [place] hr tablet 00 :00 (two) Medical times Branch daily for 30 days. OLANZapine 2019- 2020- No [id number] 2.5mg Take 1 Univers 2.5 mg 4-22 05-23 tablet by ity of tablet 00:00: 04:59 mouth at [place] 00 :00 bedtime Medical for 30 Branch days. ranolazine 2019-0 2020- No [id number] 1000mg Take 2 Univers 500 mg 12 4-22 05-23 tablets by ity of hr tablet 00:00: 04:59 mouth [place] 00 :00 every 12 Medical (twelve) Branch hours for 30 days. aspirin 81 2019- 2020- No [id number] 81mg Take 1 [facility] mg chewable 4-22 05-23 tablet by it y of tablet 00:00: 04:59 mouth [place] 00 :00 daily with Medical breakfast Branch for 30 days. atorvastati 2019-0 2020- No [id number] 40mg Take 1 Univers n 40 mg - 05-23 tablet by ity of tablet 00:00: 04:59 mouth at [place] 00 :00 bedtime Medical for 30 Branch days. glipiZIDE 5 2019- 2020- No [id number] 2.5mg Take 0.5 Univers mg tablet 03-07 05-23 tablets by ity of 00:00: 04:59 mouth 2 [place] 00 :00 (two) Medical times Branch daily before breakfast and dinner for 30 days. metoprolol 2019- 2020- No [id number] 25mg Take 1 [facility] succinate 4- 05-23 tablet by ity of XL 25 mg 24 00:00: 04:59 mouth 2 [place] hr tablet 00 :00 (two) Medical times Branch daily for 30 days. OLANZapine 2019- 2020- No [id number] 2.5mg Take 1 Univers 2.5 mg - 05-23 tablet by ity of tablet 00:00: 04:59 mouth at [place] 00 :00 bedtime Medical for 30 Branch days. ranolazine 2019- 2020- No [id number] 1000mg Take 2 Univers 500 mg 12 - 05-23 tablets by ity of hr tablet 00:00: 04:59 mouth [place] 00 :00 every 12 Medical (twelve) Branch hours for 30 days. aspirin 81 2019-0 2020- No [id number] 81mg Take 1 [facility] mg chewable - 05-23 tablet by it y of tablet 00:00: 04:59 mouth [place] 00 :00 daily with Medical breakfast Branch for 30 days. atorvastati 2019-0 2020- No [id number] 40mg Take 1 Univers n 40 mg - 05-23 tablet by ity of tablet 00:00: 04:59 mouth at [place] 00 :00 bedtime Medical for 30 Branch days. glipiZIDE 5 2019-0 2020- No [id number] 2.5mg Take 0.5 Univers mg tablet 03-07 05-23 tablets by ity of 00:00: 04:59 mouth 2 [place] 00 :00 (two) Medical times Branch daily before breakfast and dinner for 30 days. metoprolol 2019- 2020- No [id number] 25mg Take 1 Univers succinate 4-22 05-23 tablet by ity of XL 25 mg 24 00:00: 04:59 mouth 2 [place] hr tablet 00 :00 (two) Medical times Branch daily for 30 days. OLANZapine 2020- 2020- No [id number] 2.5mg Take 1 Univers 2.5 mg 4-22 05-23 tablet by ity of tablet 00:00: 04:59 mouth at [place] 00 :00 bedtime Medical for 30 Branch days. ranolazine 2019- 2020- No [id number] 1000mg Take 2 Univers 500 mg 12 4-22 05-23 tablets by ity of hr tablet 00:00: 04:59 mouth [place] 00 :00 every 12 Medical (twelve) Branch hours for 30 days. aspirin 81 2019- 2020- No [id number] 81mg Take 1 Univers mg chewable 4-22 05-23 tablet by it y of tablet 00:00: 04:59 mouth [place] 00 :00 daily with Medical breakfast Branch for 30 days. atorvastati 2019- 2020- No [id number] 40mg Take 1 Univers n 40 mg 4-22 05-23 tablet by ity of tablet 00:00: 04:59 mouth at [place] 00 :00 bedtime Medical for 30 Branch days. glipiZIDE 5 2020- No [id number] 2.5mg Take 0.5 [facility] mg tablet 4- 05-23 tablets by ity of 00:00: 04:59 mouth 2 [place] 00 :00 (two) Medical times Branch daily before breakfast and dinner for 30 days. metoprolol 2019- 2020- No [id number] 25mg Take 1 [facility] succinate 4-22 05-23 tablet by ity of XL 25 mg 24 00:00: 04:59 mouth 2 [place] hr tablet 00 :00 (two) Medical times Branch daily for 30 days. ranolazine 2019- 2020- No [id number] 1000mg Take 2 [facility] 500 mg 12 4-22 05-23 tablets by ity of hr tablet 00:00: 04:59 mouth [place] 00 :00 every 12 Medical (twelve) Branch hours for 30 days. atorvastati 2019-0 2020- No [id number] 40mg Take 1 Univers n 40 mg 4-22 05-23 tablet by ity of tablet 00:00: 04:59 mouth at [place] 00 :00 bedtime Medical for 30 Branch days. furosemide 2019- 2020- No [id number] 40mg Take 1 [facility] 40 mg 4-22 05-08 tablet by ity of tablet 00:00: 00:00 mouth [place] 00 :00 every Medical morning Branch and evening. aspirin 81 2020- No [id number] 81mg Take 1 [facility] mg chewable 03-07 05-08 tablet by it y of tablet 00:00: 00:00 mouth [place] 00 :00 daily with Medical breakfast Branch for 30 days. isosorbide 2020- No [id number] 15mg Take 0.5 [facility] mononitrate 03-07-08 tablets by i ty of 30 mg 24 hr 00:00: 00:00 mouth [place] tablet 00 :00 daily. Medical Hold if Branch systolic blood pressure less than 120 Insulin 2019- 2020- No [id number] 10U inject 10 [facility] Glargine 03-07-08 Units ity of 100 unit/mL 00:00: 00:00 under the [place] (3 mL) 00 :00 skin at Medical injection bedtime. Branch glipiZIDE 5 2019- No [id number] 2.5mg Take 0.5 Univers mg tablet 03-07 tablets by ity of 00:00: 00:00 mouth 2 [place] 00 :00 (two) Medical times Branch daily before breakfast and dinner for 30 days. metoprolol 2020- No [id number] 25mg Take 1 [facility] succinate 03-07-08 tablet by ity of XL 25 mg 24 00:00: 00:00 mouth 2 [place] hr tablet 00 :00 (two) Medical times Branch daily for 30 days. ranolazine 2019- 2020- No [id number] 1000mg Take 2 [facility] 500 mg 12 03-07-08 tablets by ity of hr tablet 00:00: 00:00 mouth [place] 00 :00 every 12 Medical (twelve) Branch hours for 30 days. furosemide 2019- 2020- No [id number] 40mg Take 1 [facility] 40 mg 03-07-08 tablet by ity of tablet 00:00: 00:00 mouth [place] 00 :00 every Medical morning Branch and evening. aspirin 81 2020- No [id number] 81mg Take 1 [facility] mg chewable 03-07 05-08 tablet by it y of tablet 00:00: 00:00 mouth [place] 00 :00 daily with Medical breakfast Branch for 30 days. atorvastati 2019- 2020- No [id number] 40mg Take 1 Univers n 40 mg 03-07 05-08 tablet by ity of tablet 00:00: 00:00 mouth at [place] 00 :00 bedtime Medical for 30 Branch days. Magnesium 2019- No [id number] 400mg Take 400 [facility] Oxide 420 - 05-08 mg by ity of mg Tab 00:00: 00:00 mouth [place] 00 :00 daily. Medical Branch vitamin 2019- No [id number] 1000ug Take 1 Univers B-12 1,000 03-07-08 tablet by ity of mcg tablet 00:00: 00:00 mouth [place] 00 :00 daily for Medical 90 days. Branch isosorbide 2019- No [id number] 15mg Take 0.5 [facility] mononitrate 03-07-08 tablets by i ty of 30 mg 24 hr 00:00: 00:00 mouth [place] tablet 00 :00 daily. Medical Hold if Branch systolic blood pressure less than 120 OLANZapine No [id number] 2.5mg Take 1 Univers 2.5 mg 03-07 05-07 tablet by ity of tablet 00:00: 00:00 mouth at [place] 00 :00 bedtime Medical for 30 Branch days. temazepam 2019- No [id number] 15mg Take 1 U nivers 15 mg 03-07 05-07 capsule by ity of capsule 00:00: 00:00 mouth at [place] 00 :00 bedtime as Medical needed for Branch Insomnia. potassium 2019- No [id number] 20meq Take 20 Univers chloride 20 - 05-07 mEq by ity o f mEq packet 00:00: 00:00 mouth [place] 00 :00 daily. Medical Take with Branch lasix in the morning OLANZapine 2019- No [id number] 2.5mg Take 1 Univers 2.5 mg - 05-07 tablet by ity of tablet 00:00: 00:00 mouth at [place] 00 :00 bedtime Medical for 30 Branch days. temazepam 2019- No [id number] 15mg Take 1 U nivers 15 mg - 05-07 capsule by ity of capsule 00:00: 00:00 mouth at [place] 00 :00 bedtime as Medical needed for Branch Insomnia. potassium 2019- No [id number] 20meq Take 20 Univers chloride 20 4-22 05-07 mEq by ity o f mEq packet 00:00: 00:00 mouth [place] 00 :00 daily. Medical Take with [place] lasix in the morning isosorbide 2020-0 2020- No 60mg 60 mg, Univ ers mononitrate 03-06-21 Oral, ity of (IMDUR) 24 14:00: 13:43 DAILY, [place] hr tablet 00 :56 First dose Medi birdie 60 mg on [facility] 03/06/20 at 0900, Until Discontinu ed, Routine OLANZapine 2020-0 Yes 2.5mg 2.5 mg, Uni vers (ZyPREXA) - Oral, QHS, ity of tablet 2.5 02:00: First dose [place] mg 00 on [facility] 03/05/20 at Branch 2100, Until Discontinu ed, Routine insulin 2020-0 Yes 10U 10 [facility] Subcutaneo ity o f (LANTUS 02:00: , QHS, [place] U-100) 00 First dose Medical injection on [facility] 10 Units 03/05/20 at 2100, Until Discontinu ed, Routine donepezil 2020-0 Yes 5mg 5 mg, Univers (ARICEPT) 03-06 Oral, QHS, ity of tablet 5 mg 02:00: First dose [place] 00 on [facility] 03/05/20 at Branch 2100, Until Discontinu ed, Routine atorvastati 2020-0 Yes 40mg 40 mg, Univ ers n (LIPITOR) - Oral, QHS, it y of tablet 40 02:00: First dose [place] mg 00 on [facility] 03/05/20 at Branch 2100, Until Discontinu ed, Routine isosorbide 2020-0 2020- No 30mg 30 mg, Univ ers mononitrate 03-05 Oral, ity of (IMDUR) 24 15:30: 15:21 ONCE, 1 [place] hr tablet 00 :00 dose, [facility] 30 mg 03/05/20 at Branch 1030, Routine spironolact 2020-0 Yes 12.5mg 12.5 mg, Univers one - Oral, ity of (ALDACTONE) 14:00: DAILY, [place] tablet 12.5 00 First dose Me dical mg on [facility] 03/05/20 at 0900, Until Discontinu ed, Routine memantine 2020-0 Yes 10mg 10 mg, Univer s (NAMENDA) 4-20 Oral, ity of tablet 10 14:00: DAILY, [place] mg 00 First dose Medical on [facility] 03/05/20 at 0900, Until Discontinu ed, Routine
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 : MEGADC lisinopril 2020-0 2020- No 5mg 5 mg, Unive rs (PRINIVIL,Z 03-05-21 Oral, ity of ESTRIL) 14:00: 13:44 DAILY, [place] tablet 5 mg 00 :01 First dose Me dical on [facility] 03/05/20 at 0900, Until Discontinu ed, Routine isosorbide 2020-0 2020- No 30mg 30 mg, Univ ers mononitrate -05 03-20 Oral, ity of (IMDUR) 24 14:00: 14:20 DAILY, [place] hr tablet 00 :04 First dose Medi birdie 30 mg on [facility] 03/05/20 at 0900, Until Discontinu ed, Routine ranolazine 2020-0 Yes 500mg 500 mg, Uni vers (RANEXA) 12 4-20 Oral, ity of hr tablet 13:00: Q12H, [place] 500 mg 00 First dose Medical on [facility] 03/05/20 at 0800, Until Discontinu ed, [...] 00 on Thu Medica l 400 mg 03/05/20 at Branch 0800, Until Discontinu ed, Routine aspirin 2020-0 Yes 81mg 81 mg, Univers chewable 4-20 Oral, QAM ity of tablet 81 13:00: WITH [place] mg 00 BREAKFAST, Medical First dose Branch on [facility] 03/05/20 at 0800, Until Discontinu ed, Routine Sliding 2020-0 Yes Subcutaneo Univ ers Scale 4-20 us, AC+HS, ity of Insulin-Reg 12:30: First dose [place] ular + Fsbg 00 on [facility] 03/05/20 at Branch 0730, Until Discontinu ed, Routine glipiZIDE 2020-0 2020- No 5mg 5 mg, Univer s (GLUCOTROL) 4-20 04-22 Oral, ity of tablet 5 mg 12:30: 19:41 BIDAC, [place] 00 :44 First dose Medical on [facility] 03/05/20 at 0730, Until Discontinu ed, Routine glucagon 2020-0 Yes 1mg 1 mg, Univers (GLUCAGEN 4-20 Intramuscu ity of DIAGNOSTIC 03:02: [place], PRN, [place] KIT) 42 Starting Medical injection 1 [facility] mg 03/04/20 at 2202, Until Discontinu ed, ADAMA, Blood Glucose < or = 70 mg/dL and patient is unable to swallow or has mental changes. dextrose 50 2020-0 Yes 25mL 25 mL, Univ ers % in water 4-20 Slow IV ity of (D50W) 03:02: Push, PRN, [place] injection 42 Starting Medica l 25 mL [facility] 03/04/20 at 2202, Until Discontinu ed, ADAMA, Blood Glucose < or = 70 mg/dL and patient is unable to swallow or has mental status changes. furosemide 2020-0 Yes 40mg 40 mg, Unive rs (LASIX) 4-20 Oral, ity of tablet 40 03:00: QAM+PM, [place] mg 00 First dose Medical on [facility] 03/04/20 at 2200, Until Discontinu ed, Routine cyanocobala 2020-0 Yes 1000ug 1,000 mcg, Univers min 4-20 Subcutaneo ity of (VITAMIN 03:00: [place], Q24H, [place] B12) 00 First dose Medical injection on [facility] 1,000 mcg 03/04/20 at 2200, Until Discontinu ed, Routine heparin 2020-0 Yes 5000U 5,000 Univers (porcine) 4-20 Units, ity of injection 03:00: Subcutaneo [place] 5,000 Units 00 us, Q8H, Medi birdie First dose Branch on [place] 03/04/20 at 2200, Until Discontinu ed, Routine ondansetron 2020-0 Yes 4mg 4 mg, Slow Univers (ZOFRAN 4-20 IV Push, ity of (PF)) 02:34: Q6HPRN, [place] injection 4 40 Starting Medi birdie mg [facility] 03/04/20 at 2134, Until Discontinu ed, Routine, Nausea and Vomiting (N/V) traMADol 2019-0 2020- No 50mg 50 mg, Univer s (ULTRAM) 4-20 04-22 Oral, ity of tablet 50 02:34: 02:33 Q8HPRN, [place] mg 23 :23 Starting Medical [facility] 03/04/20 at 2134, Until 03/06/20 at 2133, Routine, Pain (scale 4-6) acetaminoph 2019-0 Yes 650mg 650 mg, Un mel en 4-20 Oral, ity of (TYLENOL) 02:34: Q6HPRN, [place] tablet 650 20 Starting Medic al mg [facility] 03/04/20 at 4, Until Discontinu ed, Routine, Pain (scale 1-3) lisinopril 2019-0 Yes [id number] 5mg Take 1 Univers 5 mg tablet 4-18 tablet by ity of 00:00: mouth [place] 00 daily. Medical Branch isosorbide 2020-0 Yes [id number] 30mg Take 1 Univers mononitrate 4-18 tablet by ity of 30 mg 24 hr 00:00: mouth [place] tablet 00 daily. Medical Branch lisinopril 2019-0 Yes [id number] 5mg Take 1 Univers 5 mg tablet 4-18 tablet by ity of 00:00: mouth [place] 00 daily. Medical Branch isosorbide 2020-0 Yes [id number] 30mg Take 1 [facility] mononitrate 4-18 tablet by ity of 30 mg 24 hr 00:00: mouth [place] tablet 00 daily. Medical Branch isosorbide 2020-0 2020- No [id number] 30mg Take 1 [facility] mononitrate 4-18 04-22 tablet by it y of 30 mg 24 hr 00:00: 00:00 mouth [place] tablet 00 :00 daily. Medical Branch lisinopril 2019-0 2020- No [id number] 5mg Take 1 Univers 5 mg tablet [...] N ORAL 4-17 mouth. ity of 17:34: [place] [address] Medical Branch thiamine 2020-0 Yes 100mg Take 100 Univ ers (VITAMIN 4-17 mg by ity of B-1) 100 mg 17:34: mouth [place] tablet 27 daily. Medical Branch aspirin 81 2020-0 Yes 81mg Take 81 mg U nivers mg chewable 4-17 by mouth ity of tablet 17:34: daily. [place] [address] Medical Branch atorvastati 2020-0 Yes 40mg Take 40 mg Univers n 40 mg 4-17 by mouth ity of tablet 17:34: at [place] 27 bedtime. Medical Branch NaCl 0.9% 2020-0 [...] 4-17 mouth. ity of complex and 17:34: [place] C (B 27 Medical COMPLEX-VIT Branch RAZA [...] N ORAL 4-17 mouth. ity of 17:34: [place] Medical Branch thiamine 2020-0 Yes 100mg Take 100 Univ ers (VITAMIN 4-17 mg by ity of B-1) 100 mg 17:34: mouth [place] tablet 27 daily. Medical Branch aspirin 81 2020-0 Yes 81mg Take 81 mg U nivers mg chewable 4-17 by mouth ity of tablet 17:34: daily. [place] [address] Medical Branch atorvastati 2019-0 Yes 40mg Take 40 mg Univers n 40 mg 4-17 by mouth ity of tablet 17:34: at [place] 27 bedtime. Medical Branch NaCl 0.9% 2020-0 [...] of tablet 5 mg 02:00: First dose 00 on [facility] 03/01/20 at Branch 2100, Until Discontinu ed, Routine furosemide 2020-0 Yes [id number] 40mg Take 1 Univers 40 mg 4-17 tablet by ity of tablet 00:00: mouth [place] 00 every Medical morning Branch and evening. potassium 2020-0 Yes [id number] 20meq Take 20 Univers chloride 20 4-17 mEq by ity of mEq packet 00:00: mouth [place] 00 daily. Medical Branch vitamin 2020-0 Yes [id number] 1000ug Take 1 U nivers B-12 1,000 4-17 tablet by ity of mcg tablet 00:00: mouth [place] 00 daily. Medical Branch furosemide 2020-0 Yes [id number] 40mg Take 1 Univers 40 mg 4-17 tablet by ity of tablet 00:00: mouth [place] 00 every Medical morning Branch and evening. potassium 2020-0 Yes [id number] 20meq Take 20 Univers chloride 20 4-17 mEq by ity of mEq packet 00:00: mouth [place] 00 daily. Medical Branch vitamin 2020-0 Yes [id number] 1000ug Take 1 U nivers B-12 1,000 4-17 tablet by ity of mcg tablet 00:00: mouth [place] 00 daily. Medical Branch furosemide 2019-0 2020- No [id number] 40mg Take 1 Univers 40 mg 4-17 04-22 tablet by ity of tablet 00:00: 00:00 mouth [place] 00 :00 every Medical morning Branch and evening. potassium 2020-0 2020- No [id number] 20meq Take 20 Univers chloride 20 4-17 04-22 mEq by ity o f mEq packet 00:00: 00:00 mouth [place] 00 :00 daily. Medical Branch vitamin 2020-0 2020- No [id number] 1000ug Take 1 Univers B-12 1,000 4-17 04-22 tablet by ity of mcg tablet 00:00: 00:00 mouth [place] 00 :00 daily. Medical Branch cyanocobala 2020-0 Yes 1000ug 1,000 mcg, Univers min 4-16 Subcutaneo ity of (VITAMIN 20:45: us, Q24H, [place] B12) 00 First dose Medical injection on [facility] 1,000 mcg 03/01/20 at 1545, Until Discontinu ed, Routine isosorbide 2020-0 Yes 30mg 30 mg, Unive rs mononitrate 4-16 Oral, ity of (IMDUR) 24 14:00: DAILY, [place] hr tablet 00 First dose Medi birdie 30 mg on [facility] Branch 03/01/20 at 0900, Until Discontinu ed, Routine memantine 2020-0 Yes 10mg 10 mg, Univer s (NAMENDA) 4-16 Oral, ity of tablet 10 14:00: DAILY, [place] mg 00 First dose Medical on [facility] 03/01/20 at 0900, Until Discontinu ed, Routine
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 : MEGADC lisinopril 2020-0 Yes 5mg 5 mg, Univer s (PRINIVIL,Z 4-16 Oral, ity of ESTRIL) 14:00: DAILY, [place] tablet 5 mg 00 First dose Me dical on [facility] Branch 03/01/20 at 0900, Until Discontinu ed, Routine enoxaparin 2020-0 Yes 30mg 30 mg, Unive rs (LOVENOX) - Subcutaneo ity of injection 14:00: us, DAILY, [place] 30 mg 00 First dose Medical on [facility] 03/01/20 at 0900, Until Discontinu ed, Routine KCL 2020-0 2020- No 20meq 20 mEq, Univers (KLOR-CON 03-01 Oral, ity of M20) tablet 14:00: 13:26 DAILY, [place] 20 mEq 00 :35 First dose Medical on [facility] 03/01/20 at 0900, Until Discontinu ed, Routine KCL 2020-0 Yes 40meq 40 mEq, Univers (KLOR-CON 16 Oral, BID, ity of M20) tablet 13:30: First dose [place] 40 mEq 00 on [facility] 03/01/20 at Branch 0830, Until Discontinu ed, Routine magnesium 2020-0 2020- No 2g 2 g, IV Univ ers sulfate in 03-01 Infusion, ity of water 2 03:30: 03:30 ONCE, 1 [place] gram/50 mL 00 :00 dose, Thu [facility] birdie (4 %) 2 g 02/29/20 at [facility] piggyback 2230 metoprolol 2020-0 2020- No 5mg 5 mg, Slow Univers (LOPRESSOR) 03-01 IV Push, ity of injection 5 03:30: 03:37 ONCE, 1 [place] mg 00 :00 dose, [facility] Medical 02/29/20 at Branch 2230, ADAMA glipiZIDE 2020-0 Yes 5mg 5 mg, Univers (GLUCOTROL) 03-01 Oral, ity of tablet 5 mg 02:45: BIDAC, [place] 00 First dose Medical on [facility] 02/29/20 at 2145, Until Discontinu ed, Routine insulin 2020-0 Yes 10U 10 Units, Unive rs glargine 03-01 Subcutaneo ity o f (LANTUS 02:45: us, [facility], [place] U-100) 00 First dose Medical injection on Wed Branch 10 Units 02/29/20 at 2145, Until Discontinu ed, Routine OLANZapine 2020-0 Yes 2.5mg 2.5 mg, Uni vers (ZyPREXA) 4-16 Oral, QHS, ity of tablet 2.5 02:45: First dose [place] mg 00 on Thu Medical 02/29/20 at Branch 2145, Until Discontinu ed, Routine ranolazine 2020-0 Yes 500mg 500 mg, Uni vers (RANEXA) 12 4-16 Oral, ity of hr tablet 02:30: Q12H, [place] 500 mg 00 First dose Medical on Thu Branch 02/29/20 at 2130, Until Discontinu ed, Routine spironolact 2020-0 Yes 12.5mg 12.5 mg, Univers one 4-16 Oral, ity of (ALDACTONE) 02:30: DAILY, [place] tablet 12.5 00 First dose Me dical mg on Thu Branch 02/29/20 at 2130, Until Discontinu ed, Routine [...] [place] mg 00 on Thu Medical 02/29/20 at Branch 2130, Until Discontinu ed, Routine aspirin 2020-0 Yes 81mg 81 mg, Univers chewable 4-16 Oral, QAM ity of tablet 81 02:30: WITH [place] mg 00 BREAKFAST, Medical First dose Branch on 02/29/20 at 2130, Until Discontinu ed, Routine magnesium [...] at 2130, Until Discontinu ed, Routine KCL 2019-2019- No 40meq 40 mEq, Univers (KLOR-CON 03-01-16 Oral, ity of M20) tablet 01:00: 02:05 ONCE, 1 [place] 40 mEq 00 :00 dose, [facility] Medical 02/29/20 at Branch 2000, Routine acetaminoph 2019-0 Yes 650mg 650 mg, Un mel en 15 Oral, ity of (TYLENOL) 23:57: Q6HPRN, [place] tablet 650 25 Starting Medic al mg [facility] Branch 02/29/20 at 1857, Until Discontinu ed, Routine, Pain (scale 1-3) NaCl 0.9% 2019-2019- No 500mL at 999 Univ ers (NS) bolus 02-28- mL/hr, 500 it y of infusion 23:30: 23:37 mL, IV [place] 500 mL 00 :00 Infusion, Medical ONCE, 1 Branch dose, Thu02/29/20 at 1830, ADAMA acetaminoph 2019- No 650mg 650 mg, U nivers en 02-28 Oral, ity of (TYLENOL) 23:00: 22:36 ONCE, 1 [place] tablet 650 00 :00 dose, Thu Medi birdie mg 02/29/20 at Branch 1800, ADAMA donepezil 5 2019-0 Yes 5mg Take 5 mg U nivers mg tablet 02-14 by mouth ity of 00:00: daily. [place] [facility] donepezil 5 2019-0 2020- No 5mg Take 5 mg Univers mg tablet 02-1408 by mouth ity o f 00:00: 00:00 daily. [place] 00 :00 [facility] nitroglycer 2019-0 2020- No DISSOLVE U nivers in 0.4 [...] [place] 00 :00 daily. Medical Branch nitroglycer 2019-0 2019- No DISSOLVE U nivers in 0.4 mg 02-14 05-07 ONE TABLET ity of sublingual 00:00: [...] N ORAL 3-03 mouth. ity of 23:00: [place] 52 Medical Branch thiamine 2020-0 Yes 100mg Take 100 Univ ers (VITAMIN 3-03 mg by ity of B-1) 100 mg 23:00: mouth [place] tablet 52 daily. Medical Branch aspirin 81 2020-0 Yes 81mg Take 81 mg U nivers mg chewable 3-03 by mouth ity of tablet 23:00: daily. [place] [address] Medical Branch atorvastati 2020-0 Yes 40mg Take 40 mg Univers n 40 mg 3-03 by mouth ity of tablet 23:00: at [place] [address] bedtime. Medical Branch NaCl 0.9% 2020-0 Yes [...] N ORAL 3-03 mouth. ity of 23:00: [place] [address] Medical Branch thiamine 2020-0 Yes 100mg Take 100 Univ ers (VITAMIN 3-03 mg by ity of B-1) 100 mg 23:00: mouth [place] tablet 52 daily. Medical Branch aspirin 81 2020-0 Yes 81mg Take 81 mg U nivers mg chewable 3-03 by mouth ity of tablet 23:00: daily. [place] [address] Medical Branch atorvastati 2020-0 Yes 40mg Take [...] 3-03 mouth. ity of Vitamin D3, 23:00: [place] 2,000 unit 52 Medical capsule Branch metoprolol 2020-0 Yes 12.5mg Take 12.5 Univers tartrate 3-03 mg by ity of 12.5 mg 23:00: mouth 2 [place] 52 (two) Medical times Branch daily. MULTIVITAMI 2020-0 Yes Take by Un mel N ORAL 3-03 mouth. ity of 23:00: [place] [address] Medical Branch thiamine 2020-0 Yes 100mg Take 100 Univ ers (VITAMIN 3-03 mg by ity of B-1) 100 mg 23:00: mouth [place] tablet 52 daily. Medical Branch aspirin 81 2020-0 Yes 81mg Take 81 mg U nivers mg chewable 3-03 by mouth ity of tablet 23:00: daily. [place] [address] Medical Branch atorvastati 2020-0 Yes 40mg Take 40 mg Univers n 40 mg 3-03 by mouth ity of tablet 23:00: at [place] [address] bedtime. Medical Branch NaCl 0.9% 2020-0 Yes [...] 3-03 mouth. ity of Vitamin D3, 23:00: [place] 2,000 [place] [address] Medical capsule Branch metoprolol 2020-0 Yes 12.5mg Take 12.5 Univers tartrate 3-03 mg by ity of 12.5 mg 23:00: mouth 2 [place] 52 (two) Medical times Branch daily. MULTIVITAMI 2020-0 Yes Take by Un mel N ORAL 3-03 mouth. ity of 23:00: [place] [address] Medical Branch thiamine 2020-0 Yes 100mg Take 100 Univ ers (VITAMIN 3-03 mg by ity of B-1) 100 mg 23:00: mouth [place] tablet 52 daily. Medical Branch aspirin 81 2020-0 Yes 81mg Take 81 mg U nivers mg chewable 3-03 by mouth ity of tablet 23:00: daily. [place] [address] Medical Branch atorvastati 2019-0 Yes 40mg Take 40 mg Univers n 40 mg 3-03 by mouth ity of tablet 23:00: at [place] [address] bedtime. Medical Branch NaCl 0.9% 2019-0 Yes 10mL Inject 10 Uni vers (NS) Soln 3-03 mL ity of 10 mL with 23:00: intravenou [place] sodium 52 sly once Medical chloride now. [place] 2.5 mEq/mL SolP 17.125 mEq atorvastati 2019-0 Yes 40mg 40 mg, Univ ers n (LIPITOR) 3-03 Oral, QHS, it y of tablet 40 03:00: First dose [place] mg 00 on [facility] 01/16/20 at Branch 2100, Until Discontinu ed, Routine ranolazine 2019-0 2020- No [id number] 500mg Take 1 Univers 500 mg 12 01-16-03 tablet by ity of hr tablet 00:00: 04:59 mouth [place] 00 :00 every 12 Medical (twelve) Branch hours for 30 days. ranolazine 2020-0 2020- No [id number] 500mg Take 1 Univers 500 mg 12 01-1603 tablet by ity of hr tablet 00:00: 04:59 mouth [place] 00 :00 every 12 Medical (twelve) Branch hours for 30 days. ranolazine 2020-0 2020- No [id number] 500mg Take 1 Univers 500 mg 12 01-16 tablet by ity of hr tablet 00:00: 04:59 mouth [place] 00 :00 every 12 Medical (twelve) Branch hours for 30 days. ranolazine 2020-0 2020- No [id number] 500mg Take 1 Univers 500 mg 12 01-16 tablet by ity of hr tablet 00:00: 04:59 mouth [place] 00 :00 every 12 Medical (twelve) Branch hours for 30 days. ranolazine 2020-0 Yes 500mg 500 mg, Uni vers (RANEXA) 12 01-15 Oral, ity of hr tablet 22:30: Q12H, [place] 500 mg 00 First dose Medical on [facility] Branch 01/16/20 at 1630, Until Discontinu ed, Routine insulin 2020-0 Yes 30U 30 Units, Unive rs glargine 01-15 Subcutaneo ity o f (LANTUS 15:00: us, DAILY, [place] U-100) 00 First dose Medical injection on [facility] 30 Units 01/16/20 at 0900, Until Discontinu ed furosemide 2020-0 Yes 40mg 40 mg, Unive rs (LASIX) 01-15 Oral, ity of tablet 40 15:00: DAILY, [place] mg 00 First dose Medical on [facility] 01/16/20 at 0900, Until Discontinu ed, Routine aspirin 2020-0 Yes 81mg 81 mg, Univers chewable 01-15 Oral, ity of tablet 81 15:00: DAILY, [place] mg 00 First dose Medical on [facility] 01/16/20 at 0900, Until Discontinu ed, Routine metoprolol 2020-0 Yes 12.5mg 12.5 mg, U nivers tartrate 01-15 Oral, BID, ity o f (LOPRESSOR) 14:00: First dose [place] tablet 12.5 00 on [facility] mg 01/16/20 at Branch 0800, Until Discontinu ed, Routine Sliding 2020-0 Yes Subcutaneo Univ ers Scale 302 us, Q6H, ity of Insulin-Reg 12:00: First dose [place] ular + Fsbg 00 on [facility] Med[facility] Testing 01/16/20 at Branch 0600, Until Discontinu ed, Routine glucagon 2020-0 Yes 1mg 1 mg, Univers (GLUCAGEN 01-15 Intramuscu ity of DIAGNOSTIC 10:52: [place], PRN, [place] KIT) 33 Starting Medical injection 1 Mon 01/16/20 Br anch mg at 0452, Until Discontinu ed, ADAMA, Blood Glucose < or = 70 mg/dL and patient is unable to swallow or has mental changes. dextrose 50 2020-0 Yes 25mL 25 mL, Univ ers % in water 01-15 Slow IV ity of (D50W) 10:52: Push, PRN, [place] injection 33 Starting Medica l 25 mL 01/16/20 Branch at 0452, Until Discontinu ed, ADAMA, Blood Glucose < or = 70 mg/dL and patient is unable to swallow or has mental status changes. nitroglycer 2019-0 Yes .4mg 0.4 mg, Uni vers in 01-15 Sublingual ity of (NITROSTAT) 07:57: , Q5MIN [place] as sublingual 30 PRN, Medical tablet 0.4 Starting Branc h mg Thu01/16/20 at 0157, Until Discontinu ed, Routine, Chest pain ondansetron 2019-0 Yes 4mg 4 mg, Slow Univers (ZOFRAN 01-15 IV Push, ity of (PF)) 07:55: Q6HPRN, [place] injection 4 01 Starting Medi birdie mg Thu01/16/20 Branch at 0155, Until Discontinu ed, Routine, Nausea and Vomiting (N/V) morpHINE 2019-0 2020- No 2mg 2 mg, Slow Un mel injection 2 01-15 03-03 IV Push, ity of mg 07:54: 07:53 [facility] [place] [facility] :55 Starting Medical 01/16/20 Branch at 0154, Until Thu01/17/20 at 0153, Routine, Pain (scale 7-10) traMADol 2019-0 2020- No 50mg 50 mg, Univer s (ULTRAM) 01-15 03-04 Oral, ity of tablet 50 07:54: 07:53 Q[facility]HPRN, [place] [facility]47 Starting Medical 01/16/20 Branch at 0154, Until Thu01/18/20 at 0153, Routine, Pain (scale 4-6) acetaminoph 2019-0 Yes 650mg 650 mg, Un mel en 01-15 Oral, ity of (TYLENOL) 07:54: [place], [place] tablet 650 44 Starting Medic al mg 01/16/20 Branch at 0154, Until Discontinu ed, Routine, Pain (scale 1-3) insulin 2019- 2020- No 8U 8 Units, Unive rs regular 01-15-02 Slow IV ity of human 06:45: 05:40 Push, [place] (HUMULIN R) 00 :00 ONCE, 1 Medic al injection 8 dose, Mon Bra nch Units 01/16/20 at 0045, STAT heparin 2019- Yes 1000U/h 1,000 Univer s 25,000 3-02 Units/hr ity of unit/250 mL 06:00: (10 [place] (Premixed 00 mL/hr), IV Medi birdie Bag) in Infusion, Branch NaCl 0.45 % CONTINUOUS weight , Starting based Thu01/16/20 dosing [facility] at 0000, protocol Until Discontinu ed heparin 0 2020- No 4000U 4,000 Univers 1000 01-15-02 Units, IV ity of unit/mL 05:45: 05:47 Push, [place] injection 00 :00 ONCE, 1 Medical Soln 4,000 dose, [place] Bran ch Units 01/15/20 at 2345, ADAMA furosemide 2018-11 Yes [id number] 40mg Take 1 Univers 40 mg 0-26 tablet by ity of tablet 00:00: mouth [place] 00 daily. Medical Branch furosemide 2018-11 Yes [id number] 40mg Take 1 Univers 40 mg 0-26 tablet by ity of tablet 00:00: mouth [place] 00 daily. Medical Branch furosemide 2018-11 Yes [id number] 40mg Take 1 Univers 40 mg 0-26 tablet by ity of tablet 00:00: mouth [place] 00 daily. Medical Branch furosemide 2018-11 Yes [id number] 40mg Take 1 Univers 40 mg 0-26 tablet by ity of tablet 00:00: mouth [place] 00 daily. Medical Branch furosemide 2018-11 2020- No [id number] 40mg Take 1 Univers 40 mg 0-26 04-17 tablet by ity of tablet 00:00: 00:00 mouth [place] 00 :00 daily. Medical Branch magnesium 2018-11 Yes [id number] 400mg Take 400 Univers oxide 420 0-23 mg by ity of mg Tab 00:00: mouth [place] 00 daily. Medical Branch magnesium 2018-11 Yes [id number] 400mg Take 400 Univers oxide 420 0-23 mg by ity of mg Tab 00:00: mouth [place] 00 daily. Medical Branch magnesium 2019-1 Yes [id number] 400mg Take 400 Univers oxide 420 0-23 mg by ity of mg Tab 00:00: mouth [place] 00 daily. Medical Branch magnesium 2019-1 Yes [id number] 400mg Take 400 Univers oxide 420 0-23 mg by ity of mg Tab 00:00: mouth [place] 00 daily. [facility] Branch magnesium 2019-1 Yes [id number] 400mg Take 400 Univers oxide 420 0-23 mg by ity of mg Tab 00:00: mouth [place] 00 daily. [facility] Branch magnesium 2019- Yes [id number] 400mg Take 400 Univers oxide 420 0-23 mg by ity of mg Tab 00:00: mouth [place] 00 daily. [facility] magnesium 2019- 2020- No [id number] 400mg Take 400 Univers oxide 420 0-23 04-22 mg by ity of mg Tab 00:00: 00:00 mouth [place] 00 :00 daily. [facility] Insulin 2019-0 Yes [id number] 30U inject 30 Univers Glargine 9-11 Units ity of 100 unit/mL 00:00: under the [place] (3 mL) 00 skin every Medical injection morning. Branch Insulin 2019-0 Yes [id number] 30U inject 30 Univers Glargine 9-11 Units ity of 100 unit/mL 00:00: under the [place] (3 mL) 00 skin every Medical injection morning. Branch Insulin 2019-0 Yes [id number] 30U inject 30 Univers Glargine 9-11 Units ity of 100 unit/mL 00:00: under the [place] (3 mL) 00 skin every Medical injection morning. Branch Insulin 2019-0 Yes [id number] 30U inject 30 Univers Glargine 9-11 Units ity of 100 unit/mL 00:00: under the [place] (3 mL) 00 skin every Medical injection morning. Branch Insulin 2019-0 Yes [id number] 30U inject 30 Univers Glargine 9-11 Units ity of 100 unit/mL 00:00: under the [place] (3 mL) 00 skin every Medical injection morning. Branch Insulin 2019-0 Yes [id number] 30U inject 30 Univers Glargine 9-11 Units ity of 100 unit/mL 00:00: under the [place] (3 mL) 00 skin every Medical injection morning. Branch Insulin Yes [id number] 30U inject 30 Univers Glargine 9-11 Units ity of 100 unit/mL 00:00: under the [place] (3 mL) 00 skin every Medical injection morning. Branch Insulin 2020- No [id number] 30U inject 30 Univers Glargine 9-11 04-22 [...] mg under ity of 15:26: the skin. [place] [address] Medical Branch Cholecalcif Yes Take by Un mel ann, 5-10 mouth. ity of Vitamin D3, 15:26: [place] 2,000 unit 43 Medical capsule Branch metoprolol Yes 12.5mg Take 12.5 Univers tartrate 5-10 mg by ity of 12.5 mg 15:26: mouth 2 [place] [address] (two) Medical times Branch daily. MULTIVITAMI Yes Take by Un mle N ORAL 5-10 mouth. ity of 15:26: [place] [address] Medical Branch thiamine Yes 100mg Take 100 Univ ers (VITAMIN 5-10 mg by ity of B-1) 100 mg 15:26: mouth [place] tablet 43 daily. Medical Branch aspirin 81 Yes 81mg Take 81 mg U nivers mg chewable 5-10 by mouth ity of tablet 15:26: daily. [place] [address] Medical Branch atorvastati 0 Yes 40mg Take 40 mg Univers n 40 mg 5-10 by mouth ity of tablet 15:26: at [place] 43 bedtime. Medical Branch furosemide 0 Yes 40mg Take 40 mg U nivers 40 mg 5-10 by mouth ity of tablet 15:26: daily. [place] [address] Medical Branch NaCl 0.9% 0 Yes 10mL Inject 10 Uni vers (NS) Soln 5-10 mL ity of 10 mL with 15:26: intravenou [place] sodium 43 sly once Medical chloride now. Branch 2.5 mEq/mL SolP 17.125 mEq memantine-d 0 Yes 1{capsu Take 1 U nivers onepezil 5-10 le} capsule by ity o f (NAMZARIC) 15:26: mouth [place] 28-10 mg 43 daily. Medical CSpX Branch enoxaparin Yes 30mg inject 30 Un mel injection 5-10 mg under ity of 15:26: the skin. [place] [address] Medical Branch Cholecalcif 0 Yes Take by Un mel ann, 5-10 mouth. ity of Vitamin D3, 15:26: [place] 2,000 unit Medical capsule Branch metoprolol 0 Yes 12.5mg Take 12.5 Univers tartrate 5-10 mg by ity of 12.5 mg 15:26: mouth 2 [place] [address] (two) Medical times Branch daily. MULTIVITAMI Yes Take by Un mel N ORAL 5-10 mouth. ity of 15:26: [place] [address] Medical Branch thiamine 0 Yes 100mg Take 100 Univ ers (VITAMIN 5-10 mg by ity of B-1) 100 mg 15:26: mouth [place] tablet 43 daily. Medical Branch aspirin 81 Yes 81mg Take 81 mg U nivers mg chewable 5-10 by mouth ity of tablet 15:26: daily. [place] [address] Medical Branch atorvastati Yes 40mg Take 40 mg Univers n 40 mg 5-10 by mouth ity of tablet 15:26: at [place] [address] bedtime. Medical Branch furosemide 0 Yes 40mg Take 40 mg U nivers 40 mg 5-10 by mouth ity of tablet 15:26: daily. [place] [address] Medical Branch NaCl 0.9% 0 Yes 10mL Inject 10 Uni vers (NS) Soln 5-10 mL ity of 10 mL with 15:26: intravenou [place] sodium 43 sly once Medical chloride now. Branch 2.5 mEq/mL SolP 17.125 mEq insulin 0 Yes [id number] 4U inject 4 U nivers lispro, 5-10 Units ity of human, 100 00:00: under the [place] unit/mL 00 skin 3 Medical injection (three) Branch times daily before meals. insulin 2019-0 Yes [id number] 4U inject 4 U nivers lispro, 5-10 Units ity of human, 100 00:00: under the [place] unit/mL 00 skin 3 Medical injection (three) Branch times daily before meals. insulin 2019-0 Yes [id number] 4U inject 4 U nivers lispro, 5-10 Units ity of human, 100 00:00: under the [place] unit/mL 00 skin 3 Medical injection (three) Branch times daily before meals. insulin 2019-0 Yes [id number] 4U inject 4 U nivers lispro, 5-10 Units ity of human, 100 00:00: under the [place] unit/mL 00 skin 3 Medical injection (three) Branch times daily before meals. insulin 2019-0 Yes [id number] 4U inject 4 U nivers lispro, 5-10 Units ity of human, 100 00:00: under the [place] unit/mL 00 skin 3 Medical injection (three) Branch times daily before meals. insulin 2019-0 Yes [id number] 4U inject 4 U nivers lispro, 5-10 Units ity of human, 100 00:00: under the [place] unit/mL 00 skin 3 Medical injection (three) Branch times daily before meals. Insulin 2019-0 Yes [id number] 18U inject Uni vers Glargine 5-10 18-24 ity of 100 unit/mL 00:00: Units [place] (3 mL) 00 under the Medical injection skin every Bran ch morning. insulin 2019-0 Yes [id number] 4U inject 4 U nivers lispro, 5-10 Units ity of human, 100 00:00: under the [place] unit/mL 00 skin 3 Medical injection (three) Branch times daily before meals. insulin 2019-0 Yes [id number] 4U inject 4 U nivers lispro, 5-10 Units ity of human, 100 00:00: under the [place] unit/mL 00 skin 3 Medical injection (three) Branch times daily before meals. insulin 2019-0 Yes [id number] 4U inject 4 U nivers lispro, 5-10 Units ity of human, 100 00:00: under the [place] unit/mL 00 skin 3 Medical injection (three) Branch times daily before meals. insulin 2019-0 Yes [id number] 4U inject 4 U nivers lispro, 5-10 Units ity of human, 100 00:00: under the [place] unit/mL 00 skin 3 Medical injection (three) Branch times daily before meals. insulin Yes [id number] 4U inject 4 U nivers lispro, 5-10 Units ity of human, 100 00:00: under the [place] unit/mL 00 skin 3 Medical injection (three) Branch times daily before meals. insulin 2019- No [id number] 4U inject 4 Univers lispro, 5-10 05-07 Units ity of human, 100 00:00: 00:00 under the [place] unit/mL 00 :00 skin 3 Medical injection (three) Branch times daily before meals. insulin 2019- No [id number] 4U inject 4 Univers lispro, 5-10 05-07 Units ity of human, 100 00:00: 00:00 under the [place] unit/mL 00 :00 skin 3 Medical injection (three) Branch times daily before meals. Insulin 2018- No [id number] 18U inject Un mel Glargine 5-10 09-11 18-24 ity of 100 unit/mL 00:00: 00:[place] (3 [place]) 00 :00 under the Medical injection skin every Bran ch morning. folic Yes Take by Univers acid/vit B 3-08 mouth. ity of complex and 16:39: [place] C (B 29 Medical COMPLEX-VIT Branch RAZA C-FOLIC ACID ORAL) potassium Yes 20meq Take 20 Univ ers chloride 20 3-08 mEq by ity of mEq packet 16:39: mouth [place] 29 daily. Medical Branch folic Yes Take by Univers acid/vit B 3-08 mouth. ity of complex and 16:39: [place] C (B 29 Medical COMPLEX-VIT Branch RAZA C-FOLIC ACID ORAL) potassium Yes 20meq Take 20 Univ ers chloride 20 3-08 mEq by ity of mEq packet 16:39: mouth [place] 29 daily. Medical Branch Potassium Potassium Yes Anneliese [address] [facility] Chloride Chloride Millender with food [facility] Tylenol # 3 Tylenol [...] Immunizations Ordered Filled Immunization Date Status Comments [facility] e Immunization Name Name SARS-COV-2 COVID-19 2021-09-16 Completed Unive rsity of MODERNA VACCINE 00:00:00 [facility] SARS-COV-2 COVID-19 2021-09-16 Completed Unive rsity of MODERNA VACCINE 00:00:00 [facility] SARS-COV-2 COVID-19 2021-09-16 Completed Unive rsity of MODERNA VACCINE 00:00:00 [facility] SARS-COV-2 COVID-19 2021-08-17 Completed Unive rsity of MODERNA VACCINE 00:00:00 [facility] Influenza High Dose 2021-08-17 Completed Unive rsity of 00:00:00 [facility] SARS-COV-2 COVID-19 2021-08-17 Completed Unive rsity of MODERNA VACCINE 00:00:00 [facility] Influenza High Dose 2021-08-17 Completed Unive rsity of 00:00:00 [facility] SARS-COV-2 COVID-19 2021-08-17 Completed Unive rsity of MODERNA VACCINE 00:00:00 [facility] Influenza High Dose 2021-08-17 Completed Unive rsity of 00:00:00 [facility] Zoster(Zostavax)( 2020-09-14 Completed Unive rsity of ingles) 00:00:00 [facility] Zoster(Zostavax)( 2020-09-14 Completed Unive rsity of ingles) 00:00:00 [facility] Zoster(Zostavax)( 2020-09-14 Completed Unive rsity of ingles) 00:00:00 [facility] Influenza High Dose 2020-07-13 Completed Unive rsity of 00:00:00 [facility] Influenza High Dose 2020-07-13 Completed Unive rsity of 00:00:00 [facility] Influenza High Dose 2020-07-13 Completed Unive rsity of 00:00:00 [facility] Influenza High Dose 2019-09-15 Completed Unive rsity of 00:00:00 [facility] Influenza High Dose 2019-09-15 Completed Unive rsity of 00:00:00 [facility] Influenza High Dose 2019-09-15 Completed Unive rsity of 00:00:00 [facility] Influenza Virus 2018-09-09 Completed Universit y of Vaccine 00:00:00 [facility] Influenza Virus 2018-09-09 Completed Universit y of Vaccine 00:00:00 [facility] Influenza Virus 2018-09-09 Completed Universit y of Vaccine 00:00:00 [facility] Influenza Virus 2018-09-09 Completed Universit y of Vaccine 00:00:00 [facility] Influenza Virus 2018-09-09 Completed Universit y of Vaccine 00:00:00 [facility] Influenza Virus 2018-09-09 Completed Universit y of Vaccine 00:00:00 [facility] Influenza Virus 2018-09-09 Completed Universit y of Vaccine 00:00:00 [facility] Influenza Virus 2018-09-09 Completed Universit y of Vaccine 00:00:00 [facility] Influenza Virus 2018-09-09 Completed Universit y of Vaccine 00:00:00 [facility] Influenza Virus 2018-09-09 Completed Universit y of Vaccine 00:00:00 [facility] Influenza Virus 2018-09-09 Completed Universit y of Vaccine 00:00:00 [facility] Influenza Virus 2018-09-09 Completed Universit y of Vaccine 00:00:00 [facility] Influenza Virus 2018-09-09 Completed Universit y of Vaccine 00:00:00 [facility] Influenza Virus 2018-09-09 Completed Universit y of Vaccine 00:00:00 [facility] Influenza Virus 2018-09-09 Completed Universit y of Vaccine 00:00:00 [facility] Influenza Virus 2018-09-09 Completed Universit y of Vaccine 00:00:00 [facility] Influenza Virus 2018-09-09 Completed Universit y of Vaccine 00:00:00 [facility] Influenza Virus 2018-09-09 Completed Universit y of Vaccine 00:00:00 [facility] Influenza Virus 2018-09-09 Completed Universit y of Vaccine 00:00:00 [facility] Influenza Virus 2018-09-09 Completed Universit y of Vaccine 00:00:00 [facility] Influenza Virus 2018-09-09 Completed Universit y of Vaccine 00:00:00 [facility] Pneumococcal 2016-11-02 Completed University o f Polysaccharide, [...] Time Observation Value Comments Source Systolic blood 2021-11-02 17:17:00 109 mm[Hg] Univer sity of pressure [facility] Diastolic blood 2021-11-02 17:17:00 67 mm[Hg] Unive rsity of [email or web address] Heart rate 2021-11-02 17:17:00 84 /min [facility] Body temperature 2021-11-02 17:17:[address] [facility] Respiratory rate 2021-11-02 17:17:00 18 /min Univ ersity of [place] [facility] Oxygen saturation in 2021-11-02 17:17:00 95 /min University of Arterial blood by [facility] birdie Pulse oximetry Branch Body weight 2021-11-02 09:17:00 79.969 kg Universi ty of [place] [facility] BMI 2021-11-02 09:17:00 27.61 kg/m2 Universi ty of [place] [facility] Body height 2021-10-31 05:46:00 170.2 cm Universi ty of [place] [facility] Systolic blood 2021-04-25 22:36:00 118 mm[Hg] Univer sity of pressure [place] [facility] Diastolic blood 2021-04-25 22:36:00 70 mm[Hg] Unive rsity of pressure [place] [facility] Heart rate 2021-04-25 22:36:00 68 /min Universi ty of [place] [facility] Respiratory rate 2021-04-25 22:36:00 18 /min Univ ersity of [place] [facility] Oxygen saturation in 2021-04-25 22:36:00 99 /min University of Arterial blood by [facility] Pulse oximetry Branch Body temperature 2021-04-25 15:42:00 36.44 Priyanka Univ ersity of [place] [facility] Body weight 2021-04-25 15:42:00 81.647 kg Universi ty of [place] [facility] BMI 2021-04-25 15:42:00 27.37 kg/m2 Universi ty of [place] [facility] Systolic blood 2020-06-26 10:00:00 124 mm[Hg] Univer sity of pressure [place] [facility] Diastolic blood 2020-06-26 10:00:00 78 mm[Hg] Unive rsity of pressure [place] [facility] Respiratory rate 2020-06-26 10:00:00 18 /min Univ ersity of [place] [facility] Oxygen saturation in 2020-06-26 10:00:00 98 /min University of Arterial blood by [facility] birdie Pulse oximetry Branch Heart rate 2020-06-26 08:56:00 98 /min Universi ty of [place] [facility] Body temperature 2020-06-26 08:56:00 37.17 Priyanka Univ ersity of [place] [facility] Body weight 2020-06-26 08:56:00 74.844 kg Universi ty of [place] [facility] BMI 2020-06-26 08:56:00 25.09 kg/m2 Universi ty of [place] [facility] Systolic blood 2020-06-26 10:00:00 124 mm[Hg] Univer sity of pressure [place] [facility] Diastolic blood 2020-06-26 10:00:00 78 mm[Hg] Unive rsity of pressure [place] [facility] Respiratory rate 2020-06-26 10:00:00 18 /min Univ ersity of [place] [facility] Oxygen saturation in 2020-06-26 10:00:00 98 /min University of Arterial blood by [facility] birdie Pulse oximetry Branch Heart rate 2020-06-26 08:56:00 98 /min Universi ty of [place] [facility] Body temperature 2020-06-26 08:56:00 37.17 Priyanka Univ ersity of [place] [facility] Body weight 2020-06-26 08:56:00 74.844 kg Universi ty of [place] [facility] BMI 2020-06-26 08:56:00 25.09 kg/m2 Universi ty of [place] [facility] Systolic blood 2020-05-24 15:47:29 166 mm[Hg] Univer sity of pressure [place] [facility] Diastolic blood 2020-05-24 15:47:29 89 mm[Hg] Unive rsity of pressure [place] [facility] Heart rate 2020-05-24 15:47:29 86 /min Universi ty of [place] [facility] Respiratory rate 2020-05-24 15:47:29 16 /min Univ ersity of [place] [facility] Oxygen saturation in 2020-05-24 15:47:29 97 /min University of Arterial blood by [facility] Pulse oximetry Branch Body temperature 2020-05-24 11:44:00 36.94 Priyanka Univ ersity of [place] [facility] Body height 2020-05-24 11:44:00 172.7 cm Universi ty of [place] [facility] Body weight 2020-05-24 11:44:00 74.844 kg Universi ty of [place] [facility] BMI 2020-05-24 11:44:00 25.09 kg/m2 Universi ty of [place] [facility] Systolic blood 2020-05-24 15:47:29 166 mm[Hg] Univer sity of pressure [place] [facility] Diastolic blood 2020-05-24 15:47:29 89 mm[Hg] Unive rsity of pressure [place] [facility] Heart rate 2020-05-24 15:47:29 86 /min Universi ty of [place] [facility] Respiratory rate 2020-05-24 15:47:29 16 /min Univ ersity of [place] [facility] Oxygen saturation in 2020-05-24 15:47:29 97 /min University of Arterial blood by [facility] Pulse oximetry Branch Body temperature 2020-05-24 11:44:00 36.94 Priyanka Univ ersity of [place] [facility] Body height 2020-05-24 11:44:00 172.7 cm Universi ty of [place] [facility] Body weight 2020-05-24 11:44:00 74.844 kg Universi ty of [place] [facility] BMI 2020-05-24 11:44:00 25.09 kg/m2 Universi ty of [place] [facility] Systolic blood 2020-03-24 02:31:00 127 mm[Hg] Univer sity of pressure [place] [facility] Diastolic blood 2020-03-24 02:31:00 72 mm[Hg] Unive rsity of pressure [place] [facility] Heart rate 2020-03-24 02:31:00 69 /min Universi ty of [place] [facility] Body temperature 2020-03-24 02:31:00 36.39 Priyanka Univ ersity of [place] [facility] Respiratory rate 2020-03-24 02:31:00 18 /min Univ ersity of [place] [facility] Oxygen saturation in 2020-03-24 02:31:00 97 /min University of Arterial blood by [facility] Pulse oximetry Branch Systolic blood 2020-03-23 21:35:00 100 mm[Hg] Univer sity of pressure [place] [facility] Diastolic blood 2020-03-23 21:35:00 59 mm[Hg] Unive rsity of pressure [place] [facility] Heart rate 2020-03-23 21:35:00 79 /min Universi ty of [place] [facility] Body temperature 2020-03-23 21:35:00 36.78 Priyanka Univ ersity of [place] [facility] Respiratory rate 2020-03-23 21:35:00 18 /min Univ ersity of [place] [facility] Oxygen saturation in 2020-03-23 21:35:00 99 /min University of Arterial blood by [facility] Pulse oximetry Branch Body weight 2020-03-23 09:41:00 76.613 kg Universi ty of [place] [facility] BMI 2020-03-23 09:41:00 26.45 kg/m2 Universi ty [facility] [place] [facility] Body height 2020-03-23 03:43:00 170.2 cm Universi ty [facility] [place] [facility] Systolic blood 2020-03-21 20:55:00 128 mm[Hg] Univer sity of pressure [place] [facility] Diastolic blood 2020-03-21 20:55:00 61 mm[Hg] Unive rsity of pressure [place] [facility] Heart rate 2020-03-21 20:55:00 75 /min Universi ty of [place] [facility] Respiratory rate 2020-03-21 20:55:00 10 /min Univ ersity of [place] [facility] Oxygen saturation in 2020-03-21 20:55:00 98 /min University of Arterial blood by [place] [email or web address] birdie Pulse oximetry Branch Body temperature 2020-03-21 20:03:00 37.83 Priyanka Univ ersity of [place] [facility] Body height 2020-03-21 20:03:00 170.2 cm Universi ty [facility] [place] [facility] Body weight 2020-03-21 20:03:00 76.204 kg Universi ty [facility] [place] [facility] BMI 2020-03-21 20:03:00 26.31 kg/m2 Universi ty [facility] [place] [facility] Systolic blood 2020-03-07 20:50:00 118 mm[Hg] Univer sity of pressure [place] [facility] Diastolic blood 2020-03-07 20:50:00 65 mm[Hg] Unive rsity of pressure [place] [facility] Heart rate 2020-03-07 20:50:00 85 /min Universi ty [facility] [place] [facility] Body temperature 2020-03-07 20:50:00 36.39 Priyanka Univ ersity of [place] [facility] Respiratory rate 2020-03-07 20:50:00 18 /min Univ ersity of [facility] Branch Oxygen saturation in 2020-03-07 20:50:00 95 /min University of Arterial blood by [place] [email or web address] birdie Pulse oximetry Branch Body height 2020-03-05 02:35:00 172.7 cm Universi ty of [place] [facility] Body weight 2020-03-05 02:35:00 73.483 kg Universi ty of [place] [facility] BMI 2020-03-05 02:35:00 24.63 kg/m2 Universi ty [facility] [place] [facility] Systolic blood 2020-03-02 15:49:00 122 mm[Hg] Univer sity of pressure [place] [facility] Diastolic blood 2020-03-02 15:49:00 81 mm[Hg] Unive rsity of pressure [place] [facility] Heart rate 2020-03-02 15:49:00 89 /min Universi ty of [facility] Body temperature 2020-03-02 15:49:00 37.06 Priyanka [facility] ersity of [facility] Respiratory rate 2020-03-02 15:49:00 19 /min Univ ersity of [facility] Oxygen saturation in 2020-03-02 15:49:00 96 /min University of Arterial blood by [facility] Pulse oximetry Branch Body height 2020-03-01 00:54:00 170.2 cm Universi ty of [facility] Body weight 2020-03-01 00:54:00 76.975 kg Universi ty of [facility] BMI 2020-03-01 00:54:00 26.58 kg/m2 Universi ty of [facility] Systolic blood 2020-01-17 21:08:00 116 mm[Hg] Univer sity of pressure [facility] Diastolic blood 2020-01-17 21:08:00 78 mm[Hg] Unive rsity of pressure [facility] Heart rate 2020-01-17 21:08:00 88 /min Universi ty of [facility] Body temperature 2020-01-17 21:08:00 36.72 Priyanka [facility] ersity [facility] Respiratory rate 2020-01-17 21:08:00 18 /min [facility] in 2020-01-17 21:08:00 98 /min University of Arterial blood by [facility] Pulse oximetry Branch Body height 2020-01-16 06:21:00 172.7 cm Universi ty of [facility] Body weight 2020-01-16 04:35:[address] [facility] BMI 2020-01-16 04:35:00 27.98 kg/m2 Universi ty [facility] Procedures Procedure Date / Time Performing Clinician Source Performed EXTERNAL PROVIDER RECORDS 2021-11-19 06:01:00 Doctor Unassigned, [facility] [place] [facility] POCT GLUCOSE (AUTOMATED) 2021-11-02 22:49:00 [facility] POCT GLUCOSE (AUTOMATED) 2021-11-02 17:06:00 [facility] POCT GLUCOSE (AUTOMATED) 2021-11-02 13:30:00 [place], Aida [facility] TROPONIN I 2021-11-02 09:29:00 Alexandra Hdz [facility] BASIC METABOLIC PANEL 2021-11-02 09:29:00 Sridhar Gordon [facility] (NA, K, CL, CO2, GLUCOSE, Medica l Branch BUN, CREATININE, CA) CBC WITH DIFF 2021-11-02 09:29:00 veronique [facility] N-TERMINAL PRO-BNP 2021-11-02 09:29:00 Alexandra Hdz [facility] POCT GLUCOSE (AUTOMATED) 2021-11-02 01:27:[address] [facility] POCT GLUCOSE (AUTOMATED) 2021-11-01 17:37[facility] 2021-11-01 13:40[facility]00 [facility]ATED) 2021-11-01 01:10:[address] [facility] POCT GLUCOSE (AUTOMATED) 2021-10-31 22:28:00 [facility]ATED) 2021-10-31 17:29:00 Martha Drake [facility] TROPONIN I 2021-10-31 16:25:00 Alexandra Hdz [facility] TRANSTHORACIC ECHO (TTE) 2021-10-31 15:53:00 Alexandra Hdz [facility] COMPLETE W/ CONTRAST Medical [facility] POCT GLUCOSE (AUTOMATED) 2021-10-31 13:39:00 Martha Drake [facility] TROPONIN I 2021-10-31 10:08:00 [facility] BASIC METABOLIC PANEL 2021-10-31 10:08:00 [facility] (NA, K, CL, CO2, GLUCOSE, Medica l Branch BUN, CREATININE, CA) LIPID PANEL ([id number])(TOTAL 2021-10-31 10:08:00 Alexandra Hdz [facility] CHOLESTEROL, [facility] TRIGLYCERIDES, HDL) CBC WITH DIFF 2021-10-31 10:08[facility] 2021-10-31 10:08[facility]-BNP 2021-10-31 10:08:00 Alexandra Hdz [facility] TROPONIN I 2021-10-31 06:17:00 [facility]ST 1 VW 2021-10-31 01:30:56 Martha Drake [facility] LIPASE 2021-10-31 01:25:00 Martha Drake [facility] TROPONIN I 2021-10-31 01:25:00 Martha Drake [facility] COMP. METABOLIC PANEL 2021-10-31 01:25:00 Martha Drake [facility] ([id number]) Medical Branch CBC WITH DIFF 2021-10-31 01:25:00 Martha Drake [facility] [place] [facility] GLYCOSYLATED HEMOGLOBIN 2021-10-31 01:25[facility] PROTHROMBIN TIME / INR 2021-10-31 01:25:00 Martha Drake [facility] ACTIVATED PARTIAL 2021-10-31 01:25:00 [facility]-B[facility] 2021-10-31 01:25:00 Martha Drake [facility] COVID-19 (ID NOW RAPID 2021-10-31 01:25:00 Martha Drake [facility] TESTING) Medical Branch LAB ONLY COVID 2021-10-31 01:25:00 Martha Drake [facility] INTERPRETATION [facility] HB ECG ROUTINE & RHYTHM 2021-10-31 01:20:03 Yarima, [place] [facility] STRIP [facility] URINALYSIS 2021-04-25 21:01:00 Nallely Zhao [facility] XR LUMBAR SPINE 2 VW 2021-04-25 18:41:[address] [facility] XR HIPS 2 VW LEFT 2021-04-25 18:41:[address] [facility] CONSENT/REFUSAL FOR 2021-04-25 15:43:06 Doctor Blaise, [facility] DIAGNOSIS AND TREATMENT [place] [facility] [place] [facility] CERVICAL SPINE WO 2020-06-26 09:35:01 Martha Drake [facility] CONTRAST [facility] CT LUMBAR SPINE WO 2020-06-26 09:35:01 Martha Drake [facility] CONTRAST [facility] CT THORACIC SPINE WO 2020-06-26 09:35:01 Martha Drake [facility] UNILATERAL DUPLEX SCAN OF 2020-05-24 14:53:40 [facility] BY [facility] LAB Medical B ranch XR ANKLE 3+ VW LEFT 2020-05-24 13:22:26 Charanjit Heck [facility] HEPATIC FUNCTION PANEL 2020-05-24 13:13:00 Charanjit Heck [facility] ([id number]) (ALB,T.PRO,BILI Medical Branch T,BU/BC,ALT,AST,ALK PHOS) BASIC METABOLIC PANEL 2020-05-24 13:13:00 Charanjit Heck [facility] (NA, K, CL, CO2, GLUCOSE, Medica l Branch BUN, CREATININE, CA) CBC WITH DIFFERENTIAL 2020-05-24 13:13:[address] [facility] PROTHROMBIN TIME / INR 2020-05-24 13:13:00 Charanjit Heck [facility] ACTIVATED PARTIAL 2020-05-24 13:13:00 Charanjit Heck [facility] NOTICE OF PRIVACY 2020-05-24 11:38:26 Doctor Blaise, [facility] PRACTICES [place] [facility] [place] CONSENT/REFUSAL FOR 2020-05-24 11:35:52 Doctor Blaise [facility] DIAGNOSIS AND TREATMENT [place] [facility] POCT GLUCOSE (AUTOMATED) 2020-03-23 22:32:[address] [facility] POCT GLUCOSE (AUTOMATED) 2020-03-23 18:07:[address] [facility] POCT GLUCOSE (AUTOMATED) 2020-03-23 14:57:[address] [facility] ECHO ROUTINE W/DOPPLER 2020-03-23 13:33:57 Tereza Cano [facility] EKG-12 LEAD 2020-03-23 12:56:59 Charisma [facility] MAGNESIUM 2020-03-23 11:15:00 Jerome [facility] TROPONIN I 2020-03-23 11:15:00 Jerome [facility] BASIC METABOLIC PANEL 2020-03-23 11:15:00 [facility] (NA, K, CL, CO2, GLUCOSE, Medica l Branch BUN, CREATININE, CA) PROTHROMBIN TIME / INR 2020-03-23 11:15:00 Tereza Cano [facility] ACTIVATED PARTIAL 2020-03-23 11:15:00 [facility] 2020-03-23 07:51:19 Charisma [facility] MAGNESIUM 2020-03-23 05:55:00 [facility]IN I 2020-03-23 05:55:00 Jerome [facility] BASIC METABOLIC PANEL 2020-03-23 05:55:00 [facility] (NA, K, CL, CO2, GLUCOSE, Medica l Branch BUN, CREATININE, CA) LIPID PANEL ([id number])(TOTAL 2020-03-23 05:55:00 Tereza Cano [facility] TRIGLYCERIDES, HDL) PROTHROMBIN TIME / INR 2020-03-23 02:55:00 Sallie Eckert [facility] ACTIVATED PARTIAL 2020-03-23 02:55:00 [facility] XR CHEST 2 VW 2020-03-23 01:52:37 Hayder Esteban [facility] CORONAVIRUS COVID-19 2020-03-23 00:50:00 Esteban Singletary [facility] FERRITIN SERUM 2020-03-22 23:36:00 [facility] TROPONIN [facility] 2020-03-22 23:36:00 Esteban Singletary [facility] COMP. METABOLIC PANEL 2020-03-22 23:36:00 Esteban Singletary [facility] (33595[facility] IRON PANEL 2020-03-22 23:36:00 Jerome [facility] CBC WITH DIFFERENTIAL 2020-03-22 23:36:[address] [facility] N-TERMINAL PRO-BNP 2020-03-22 23:36:00 Esteban Singletary [facility] EKG-12 LEAD 2020-03-22 23:08:53 Hayder Esteban [facility] EKG-12 LEAD 2020-03-22 23:08:15 Hayder Esteban [facility] XR CHEST 1 VW 2020-03-21 20:42:35 Myles Harry [facility] LACTIC ACID WHOLE BLOOD 2020-03-21 20:38:[address] [facility] LIPASE 2020-03-21 20:19:00 Mylse Harry [facility] TROPONIN I 2020-03-21 20:19:00 Myles Harry [facility] COMP. METABOLIC PANEL 2020-03-21 20:19:00 Myles Harry [facility] ([id number]) [facility] PROTHROMBIN TIME / INR 2020-03-21 20:19:00 Myles Harry [facility] N-TERMINAL PRO-BNP 2020-03-21 20:19:00 Myles Harry [facility] CORONAVIRUS COVID-19 2020-03-21 20:19:00 Myles Harry [facility] EKG-12 LEAD 2020-03-21 20:11:28 Myles Harry [facility] POCT GLUCOSE (AUTOMATED) 2020-03-07 20:56:[address] [facility] POCT GLUCOSE (AUTOMATED) 2020-03-07 15:34:[address] [facility] POCT GLUCOSE (AUTOMATED) 2020-03-07 12:56:00 Julio Cesar [facility] URIC ACID 2020-03-07 10:14:00 Holland Briscoe [facility] TROPONIN I 2020-03-07 10:14:00 Steven [facility] BASIC METABOLIC PANEL 2020-03-07 10:14:00 Julio Cesar [facility] (NA, K, CL, CO2, GLUCOSE, Medica l Branch BUN, CREATININE, CA) CBC WITH DIFFERENTIAL 2020-03-07 10:14:00 Julio Cesar [facility] N-TERMINAL PRO-BNP 2020-03-07 10:14:00 [facility] PO[facility] ([facility]OMATED) 2020-03-06 21:16:00 Julio [facility] POCT GLUCOSE (AUTOMATED) 2020-03-06 16:10:00 Julio Cesar [facility] POCT GLUCOSE (AUTOMATED) 2020-03-06 12:38:00 Julio Cesar [facility] TROPONIN I 2020-03-06 08:51:00 Steven [facility] BASIC METABOLIC PANEL 2020-03-06 08:51:00 Julio Cesar [facility] (NA, K, CL, CO2, GLUCOSE, Medica l Branch BUN, CREATININE, CA) CBC WITH DIFFERENTIAL 2020-03-06 08:51:00 Julio Cesar [facility] POCT GLUCOSE (AUTOMATED) 2020-03-06 01:16:00 Julio Cesar [facility] TROPONIN I 2020-03-05 23:25:00 Julio Cesar [facility] POCT GLUCOSE (AUTOMATED) 2020-03-05 21:14:00 Ramóntylerrosalio [facility] POCT GLUCOSE (AUTOMATED) 2020-03-05 16:39:00 [facility] POCT GLUCOSE (AUTOMATED) 2020-03-05 12:47:00 Julio Cesar [facility] TROPONIN I 2020-03-05 09:50:00 [facility] BASIC METABOLIC PANEL 2020-03-05 09:50:00 [facility] (NA, K, CL, CO2, GLUCOSE, Medica l Branch BUN, CREATININE, CA) CBC WITH DIFFERENTIAL 2020-03-05 09:50:00 [facility] EKG-12 LEAD 2020-03-05 00:36:54 [facility] 2020-03-05 00:31:03 [facility] CORONAVIRUS COVID-19 2020-03-05 00:03:00 Charanjit Heck [facility] XR CHEST 1 VW 2020-03-04 23:58:59 Charanjit Heck [facility] LIPASE 2020-03-04 23:29:00 Charanjit Heck [facility] TROPONIN I 2020-03-04 23:29:00 UmangFreeman Heart InstituteCharanjit [facility] HEPATIC FUNCTION PANEL 2020-03-04 23:29:00 Charanjit Heck [facility] ([id number]) (ALB,T.PRO,BILI Medical Branch T,BU/BC,ALT,AST,ALK PHOS) BASIC METABOLIC PANEL 2020-03-04 23:29:00 Charanjit Heck [facility] (NA, K, CL, CO2, GLUCOSE, Medica l Branch BUN, CREATININE, CA) CBC WITH DIFFERENTIAL 2020-03-04 23:29:[address] [facility] PROTHROMBIN TIME / INR 2020-03-04 23:29:00 Charanjit Heck [facility] ACTIVATED PARTIAL 2020-03-04 23:29:00 Charanjit Heck [facility] N-TERMINAL PRO-BNP 2020-03-04 23:29:00 Umang Charanjit [facility] EKG-12 LEAD 2020-03-04 23:15:42 Umang [facility] EKG-12 LEAD 2020-03-04 23:10:23 Umang [facility] EMERGENCY DEPARTMENT 2020-03-04 05:01:00 Doctor Unassigned, [facility] DOCUMENTS [place] [facility] POCT GLUCOSE (AUTOMATED) 2020-03-02 15:52:[address] [facility] POCT GLUCOSE (AUTOMATED) 2020-03-02 12:39:[address] [facility] MAGNESIUM 2020-03-02 08:57:00 Carolyn [facility] BASIC METABOLIC PANEL 2020-03-02 08:57:00 Carolyn [facility] (NA, K, CL, CO2, GLUCOSE, Medica l Branch BUN, CREATININE, CA) N-TERMINAL PRO-BNP 2020-03-02 08:57:00 Carolyn alek [facility] POCT GLUCOSE (AUTOMATED) 2020-03-01 20:39:[address] [facility] MAGNESIUM 2020-03-01 08:43:00 Lulu Harris [facility] TROPONIN I 2020-03-01 08:43:00 Carolyn alek [facility] BASIC METABOLIC PANEL 2020-03-01 08:43:00 Lulu Harris [facility] (NA, K, CL, CO2, GLUCOSE, Medica l Branch BUN, CREATININE, CA) CBC WITH DIFFERENTIAL 2020-03-01 08:43:[address] [facility] N-TERMINAL PRO-BNP 2020-03-01 08:43:00 Carolyn [facility] VITAMIN B12, LEVEL 2020-03-01 03:49:00 Carolyn alek [facility] FOLATE 2020-03-01 03:49:00 Carolyn alek [facility] SEDIMENTATION RATE 2020-03-01 03:49:00 Carolyn, Adnan [facility] POCT GLUCOSE (AUTOMATED) 2020-03-01 03:39:[address] [facility] PHOSPHORUS 2020-03-01 02:28:00 Lulu Harris [facility] URIC ACID 2020-03-01 02:28:00 Carolyn [facility] TROPONIN I 2020-03-01 02:28:00 Carolyn [facility] HEPATIC FUNCTION PANEL 2020-03-01 02:28:00 Ivory Leon [facility] ([id number]) (ALB,T.PRO,BILI Medical Branch T,BU/BC,ALT,AST,ALK PHOS) PROTHROMBIN TIME / INR 2020-03-01 02:28:00 Ivory Leon [facility] N-TERMINAL PRO-BNP 2020-03-01 02:28:00 Lulu Harris [facility] PROCALCITONIN 2020-03-01 02:28:00 Carolyn [facility] EKG-12 LEAD 2020-03-01 01:54:29 Carolyn [facility] EKG-12 LEAD 2020-02-29 23:16:21 Bobo Urrutia [facility] XR CHEST 1 VW COVID 2020-02-29 23:14:25 Bobo Urrutia [facility] EKG-12 LEAD 2020-02-29 23:13:50 Bobo Urrutia [facility] LACTIC ACID WHOLE BLOOD 2020-02-29 22:21:00 Bobo Urrutia [facility] CORONAVIRUS COVID-19 2020-02-29 22:20:00 Bobo Urrutia [facility] CREATINE KINASE 2020-02-29 22:14:00 Carolyn alek [facility] URIC ACID 2020-02-29 22:14:00 Carolyn [facility] LIPASE 2020-02-29 22:14:00 Bobo Urrutia [facility] MAGNESIUM 2020-02-29 22:14:00 Carolyn [facility] TROPONIN I 2020-02-29 22:14:00 Bobo Urrutia [facility] THYROID STIMULATING 2020-02-29 22:14:00 Carolyn alek [facility] HORMONE [facility] Branch BASIC METABOLIC PANEL 2020-02-29 22:14:00 Bobo Urrutia [facility] (NA, K, CL, CO2, GLUCOSE, Medica l Branch BUN, CREATININE, CA) CBC WITH DIFFERENTIAL 2020-02-29 22:14:[address] [facility] GLYCOSYLATED HEMOGLOBIN 2020-02-29 22:14:00 [facility] N-TERMINAL PRO-BNP 2020-02-29 22:14:00 Carolyn [facility] EKG-12 LEAD 2020-02-29 21:59:12 [facility]12 [facility]AD 2020-02-29 21:48:49 Bobo Urrutia [facility] EMERGENCY DEPARTMENT 2020-02-29 05:01:00 Doctor Unassigned, [facility] DOCUMENTS [place] [facility] POCT GLUCOSE (AUTOMATED) 2020-01-17 18:15:00 Julio [facility] TROPONIN I 2020-01-17 16:31:00 Julio Cesar [facility] ACTIVATED PARTIAL 2020-01-17 16:31:00 Carolyn [facility] POCT GLUCOSE (AUTOMATED) 2020-01-17 11:56:00 Julio [facility] TROPONIN I 2020-01-17 09:52:00 Julio Cesar [facility] BASIC METABOLIC PANEL 2020-01-17 09:52:00 Julio Cesar [facility] (NA, K, CL, CO2, GLUCOSE, Medica l Branch BUN, CREATININE, CA) CBC WITH DIFFERENTIAL 2020-01-17 09:52:00 Julio Cesar [facility] ACTIVATED PARTIAL 2020-01-17 09:52:00 Julio Cesar [facility] POCT GLUCOSE (AUTOMATED) 2020-01-16 23:59:00 Julio Cesar [facility] EKG-12 LEAD 2020-01-16 22:15:50 [facility] TROPONIN I 2020-01-16 20:04:00 Julio Cesar [facility] ACTIVATED PARTIAL 2020-01-16 20:04:00 [facility] POCT GLUCOSE (AUTOMATED) 2020-01-16 17:05:00 Julio Cesar [facility] POCT GLUCOSE (AUTOMATED) 2020-01-16 13:38:00 [facility]OPONIN I 2020-01-16 11:11:00 Ramónformerly [facility] hospitalrosalio[facility] LIPID PANEL ([id number])(TOTAL 2020-01-16 11:11:00 Ramónformerly [facility] hospitalrosalio[facility]LE[facility]OL[facility] TRIGLYCERIDES, HDL) ACTIVATED PARTIAL 2020-01-16 11:11:00 [facility] 2020-01-16 05:48:18 Umang Charanjit [facility] XR CHEST 1 VW 2020-01-16 04:46:44 Umang [facility] TROPONIN I 2020-01-16 04:38:00 Umang [facility] HEPATIC FUNCTION PANEL 2020-01-16 04:38:00 Charanjit Heck [facility] ([id number]) (ALB,T.PRO,BILI Medical Branch T,BU/BC,ALT,AST,ALK PHOS) BASIC METABOLIC PANEL 2020-01-16 04:38:00 Charanjit Heck [facility] (NA, K, CL, CO2, GLUCOSE, Medica l Branch BUN, CREATININE, CA) CBC WITH DIFFERENTIAL 2020-01-16 04:38:[address] [facility] GLYCOSYLATED HEMOGLOBIN 2020-01-16 04:38:00 [facility] PROTHROMBIN TIME / INR 2020-01-16 04:38:00 Charanjit Heck Unive [facility]ity [facility] ACTIVATED PARTIAL 2020-01-16 04:38:00 Charanjit Heck [facility] THRMPLAS [facility] N-TERMINAL PRO-BNP 2020-01-16 04:38:00 Charanjit Heck [facility] y [facility] EKG-12 LEAD 2020-01-16 04:37:48 Charanjit Heck [place] [facility] EKG-12 LEAD 2020-01-16 04:35:35 UmangFreeman Heart InstituteCharanjit [place] [facility] AUTHORIZATION FOR RELEASE 2019-07-12 05:01:00 Doctor Blaise, [facility] [place] [facility] Encounters Start End Encounter Admission Attending Care Care Encounter Source Date/Time Date/Time Type Type Clinicians Facility Department ID 2021-09-16 Emergency [facility] [id number] Univers 00:23:34 ity of [facility] 2021-09-13 Emergency [facility] [id number] Univers 11:42:[address] [facility] 2021-09-13 Emergency [facility] [id number] Univers 05:40:48 ity of [facility] 2021-11-19 2021-11-19 Orders Doctor ROBERT [id number] Univers 00:00:00 00:00:00 Only Unassigned, ADRIAN [id number] ity of [place] [facility] [id number] [place] [phone] [facility] 009 Branch 2021-11-04 2021-11-04 Transition SHAREE Maria [id number] Univers 00:00:00 00:00:00 of Care Supa GREWAL [id number] it[id number] [phone] [facility] 403 Branch 2021-10-30 2021-11-02 Inpatient X ALYSSA NCCESAR ZEFERINO [id number] Univers 19:14:00 18:15:[address] [facility] 2021-10-30 2021-11-02 [facility] Martha Drake [facility] 1.2.840. 114 [id number] Univers 19:14:00 18:15:00 Encounter Aida Shah [id number] ity [facility] [id number] [facility] [id number] [facility] 081 Branch 2021-05-17 2021-05-17 Letter PcpROBERT [id number] Univers 00:00:00 00:00:00 (Out) Patient ADRIAN [id number] it y of Does Not [facility] 4.2.7.2.686 [place] A [id number] [facility] 019 Branch 2021-04-25 2021-04-25 Emergency Cece, TRAUMA [id number] Univers 10:43:00 17:38:00 [facility] [id number] i ty of [facility] [id number] [facility] [id number] [facility] 014 Branch 2020-06-26 2020-06-26 Emergency [facility] [id number] Univers 03:50:00 06:45:00 Martha Cortez [id number] ity of [place] 4.2.7.2.686 [facility] [id number] [facility] 084 Branch 2020-06-26 2020-06-26 [facility] [id number] 03:50:00 06:45:00 Martha Cortez [id number] [place] 4.2.7.2.686 [place] [id number] [facility] 2020-05-24 2020-05-24 [facility] [id number] Univers 06:40:47 10:54:00 Charanjit [place] [id number] i ty of [place] 4.2.7.2.686 [facility] [id number] [place] 995314 Branch 2020-05-24 2020-05-24 [facility] [id number] 06:40:47 10:54:00 Charanjitkiara [place] [id number] [place] 4.2.7.2.686 [place] [id number] [facility] 2020-03-29 2020-03-29 Letter Luan Floresy Maki 1.2.840.114 [id number] Univers 00:00:00 00:00:00 (Out) [place] [id number] it y of [facility] 4.2.7.2.686 [place] [phone] [address] 2020-03-29 2020-03-29 Letter Luan Floresy Maki 1.2.840.114 [id number] 00:00:00 00:00:00 (Out) [place] [id number] [facility] 4.2.7.2.686 [id number] [facility] 2020-03-26 2020-03-26 Transition Sharee George 1.2.840.114 [id number] Univers 00:00:00 00:00:00 of Care Sherrell Grewal 350.1.13.10 it y of [place] [id number] [address] 2020-03-26 2020-03-26 Transition Sharee George 1.2.840.114 [id number] 00:00:00 00:00:00 of Care Sherrell Grewal 350.1.13.10 [place] 4.2.7.2.686 [id number] [facility] 2020-03-22 2020-03-23 Emergency Babar Nabeeljordan Gambino 1.2.840. 114 [id number] Univers 18:02:47 21:55:00 Jamel Flores [id number] ity [facility] [id number] [place] [id number] [address] 2020-03-22 2020-03-23 Outpatient X JAMEL FLORES [facility] [id number] Univers 18:02:47 21:55:[address] [facility] 2020-03-21 2020-03-21 Emergency Kamryn [facility] 1.2.840.114 [id number] Univers 15:02:08 17:16:00 Myles Cortez 350.1.13.10 i [place] [id number] [address] 2020-03-21 2020-03-21 Emergency X KAMRYN [facility] ERT [id number] Univers 15:02:08 17:16:[address] [facility] 2020-03-13 2020-03-13 Outpatient Raju_P MMG MMG [id number] [place] 05:24:00 05:24:00 0428 [facility] 2020-03-08 2020-03-08 Transition Sharee Cool 1.2.840.114 [id number] Univers 00:00:00 00:00:00 of Care Prema Hahny 350.1.13.10 i ty [place] [id number] [address] 2020-03-04 2020-03-07 [facility] HeckCharanjit [facility] 1.2.840.1 [id number] Univers 18:01:05 18:00:00 Encounter Sarah Adorno [id number] ity of [place] 4.2.7.2.686 [facility] [id number] [address] 2020-03-04 2020-03-07 Inpatient X [facility] ZEFERINO [id number] Univers 18:01:05 18:00:[address] [facility] 2020-03-03 2020-03-03 Transition Ricardo Belindakvng 1.2.840.114 [id number] Univers 00:00:00 00:00:00 of Care Isatu Hahny 350.1.13.10 it y of [place] [id number] [address] 2020-02-29 2020-03-02 [facility] Bobo Urrutia [facility] 1.2.840.11 [id number] Univers 16:53:09 12:18:00 Encounter Lulu Harris [id number] ity of [place] 4.2.7.2.686 [facility] [id number] [address] 2020-02-29 2020-03-02 Inpatient X STEVEN [facility] ZEFERINO [id number] Univers 16:53:09 12:18:[address] [facility] 2020-02-15 2020-02-15 Outpatient R BETANCOURT [facility] [id number] Univers 11:30:00 11:30:[address] [facility] 2020-02-15 2020-02-15 Telemedici [facility] 1.2.840.114 [id number] Univers 08:13:42 08:43:42 ne Visit Rosemary Cortez 350.1.13.10 [place] [facility] [phone] Al dical nal [address] Building 2020-01-18 2020-01-18 Transition Sharee Harvey 1.2.840.114 [id number] Univers 00:00:00 00:00:00 of Care Ana M Grewal 350.1.13.10 it y of [place] [id number] [facility] 403 Branch 2020-01-15 2020-01-17 [facility] Charanjit Heck [facility] 1.2.840.1 [id number] Univers 22:33:37 16:58:00 Encounter Sarah Adorno 350.1.13.10 [place] [id number] [facility] 081 Branch 2020-01-15 2020-01-17 Outpatient X JULIO CESAR [facility] ZEFERINO [id number] Univers 22:33:37 16:58:[address] [facility] 2019-10-07 2019-10-07 [facility] [id number] 10:48:00 10:48:00 [facility] Medicine Medicine Outpati ent Clinics 2019-10-05 2019-10-05 [facility] [id number] 16:06:00 16:06:00 [facility] Medicine l Medicine Outpati ent Clinics 2019-07-27 2019-07-27 Refill [facility] 1.2.840.114 [id number] Univers 00:00:00 00:00:00 Rosemary Cortez 350.1.13.10 i ty of [place] 4.2.7.2.686 Sylvia Tubbsio [id number] Al dical nal [address] [facility] 2019-07-12 2019-07-12 [facility] [id number] 16:24:00 16:24:00 [facility] ent [facility] 2019-07-12 2019-07-12 Orders Doctor ROBERT 1.2.840.114 [id number] Univers 00:00:00 00:00:00 Only Unassigned, ADRIAN 350.1.13.10 ity of [place] [facility] 4.2.7.2.686 [place] [id number] [facility] 009 Branch 2019-07-06 2019-07-06 [facility] [id number] 14:00:00 14:00:00 [facility] Results Test Description Test Time Test Comments Results Result Comments Source POCT GLUCOSE (AUTOMATED) 2021-11-02 22:57:12 Test Item Value Reference Range Interpretation Comme nts POCT GLU (test code = 4942040311) 224 mg/dL 70-110 H Lab Interpretation (test code = 42596-0) Abnormal [facility] ROUTINE [id number] 22:37:57 Test Item Value Reference Range Interpretation Comments Lab Interpretation (test code = Abnormal 82152-1) [facility] ([facility]OMATED)2021-11-02 17:43:02 Test Item Value Reference Range Interpretation Comments POCT GLU (test code = [id number]) 264 mg/dL 70-110 H Lab Interpretation (test code = Abnormal 74084-8) [facility] [id number] 15:07:47 Test Item Value Reference Interpretation Comments Range TROPONIN I (test 0.064 ng/mL See_Comment H [Automated code = 5682122561) message] The system which generated this result transmitted reference range : <=0.034. The reference range was not used to interpret this result as normal/abnormal . ALYSSA (test code = Reference (Normal) ALYSSA) Range (defined by the 99th percentile reference limit): <= 0.034 ng/mL Note: Cardiac troponin begins to rise 3-4 hours after the onset of ischemia. Repeat in 4-6 hours if the sample was drawn within 3-4 hours of the onset of the symptom and found normal. Diagnosis of myocardial injury is made with acute changes in cTn concentrations with at least one serial sample above the 99th percentile upper reference limit (URL), taken together with the patient's clinical presentation. Biotin has been reported to cause a negative bias, interpret results relative to patient's use of biotin. Lab Interpretation Abnormal (test code = 42429-1) [facility] [id number] 15:04:26 Test Item Value Reference Range Interpretation Comments NT-proBNP (test code 800 pg/mL See_Comment H [Autom ated = 9340355960) message] The system which generated this result transmitted reference range : <=450. The reference range was not used to interpret this result as normal/abnormal . ALYSSA (test code = ALYSSA) Biotin has been reported to cause a negative bias, interpret results relative to patient's use of biotin. Lab Interpretation Abnormal (test code = 62558-5) [facility]2021-11-02 13:36:38 Test Item Value Reference Range Interpretation Comments POCT GLU (test code = 1173129973) 185 mg/dL 70-110 H Lab Interpretation (test code = Abnormal 36925-0) [facility]OLIC PANEL (NA, K, CL, CO2, GLUCOSE, BUN, CREATININE, CA)2021-11-02 10:26:43 Test Item Value Reference Range Interpretation Comments NA (test code = 136 mmol/L 135-145 8702487942) K (test code = 4.0 mmol/L 3.5-5.0 5353420689) CL (test code = 99 mmol/L 98-108 3307611521) CO2 TOTAL (test code = 27 mmol/L 23-31 9830811685) AGAP (test code = 2-16 9217218489) BUN (test code = 30 mg/dL 7-23 H 8648318753) GLUCOSE (test code = 165 mg/dL 70-110 H 2312530956) CREATININE (test code = 1.42 mg/dL 0.60-1.25 H 3573061787) CALCIUM (test code = 9.5 mg/dL 8.6-10.6 0354375172) eGFR (test code = mL/min/1.73m2 1438803087) ALYSSA (test code = ALYSSA) Association of [...] tests). Lab Interpretation Abnormal (test code = 73804-6) [facility] acute hospital WITH [id number] 10:01:58 Test Item Value Reference Range Interpretation Comments WBC (test code = See_Comment [Automated 6990-2) message] The sy stem which generated this result transmitted reference range : 4.20 - 10.70 10*3/?L. The reference range was not used to interpret this result as normal/abnormal . RBC (test code = See_Comment L [Automated 749-8) message] The sy stem which generated this result transmitted reference range : 4.26 - 5.52 10*6/?L. The reference range was not used to interpret this result as normal/abnormal . HGB (test code = 12.6 g/dL 12.2-16.4 718-7) HCT (test code = 36.2 % 38.4-49.3 L 4544-3) MCV (test code = 93.3 fL 81.7-95.6 787-2) MCH (test code = 32.5 pg 26.1-32.7 785-6) MCHC (test code = 34.8 g/dL 31.2-35.0 786-4) RDW-SD (test code = 39.8 fL 38.5-51.6 36750-8) RDW-CV (test code = 11.5 % 12.1-15.4 L 788-0) PLT (test code = See_Comment [Automated 777-3) message] The sy stem which generated this result transmitted reference range : 150 - 328 10*3/ ?L. The reference r corey was not used to interpret this result as normal/abnormal . MPV (test code = 10.5 fL 9.8-13.0 87234-0) NRBC/100 WBC (test See_Comment [Automat ed code = 0688071913) message] The system which generated this result transmitted reference range : 0.0 - 10.0 /100 WBCs. The refer ence range was not u sed to interpret th is result as normal/abnormal . NRBC x10^3 (test code <0.01 See_Comment [Auto mated = 6144513437) message] The s ystem which generated this result transmitted reference range : 10*3/?L. The reference range was not used to interpret this result as normal/abnormal . GRAN MAT (NEUT) % 59.3 % (test code = 770-8) IMM GRAN % (test code 0.30 % = 3271745691) LYMPH % (test code = 25.0 % 736-9) MONO % (test code = 10.7 % 5905-5) EOS % (test code = 4.1 % 713-8) BASO % (test code = 0.6 % 706-2) GRAN MAT x10^3(ANC) 4.19 10*3/uL 1.99-6.95 (test code = 5088137336) IMM GRAN x10^3 (test <0.03 0.00-0.06 code = 5683206272) LYMPH x10^3 (test code 1.77 10*3/uL 1.09-3.23 = 731-0) MONO x10^3 (test code 0.76 10*3/uL 0.36-1.02 = 742-7) EOS x10^3 (test code = 0.29 10*3/uL 0.06-0.53 711-2) BASO x10^3 (test code 0.04 10*3/uL 0.01-0.09 = 704-7) Lab Interpretation Abnormal (test code = 80089-7) [facility] GLUCOSE (AUTOMATED)2021-11-02 01:29:56 Test Item Value Reference Range Interpretation Comments POCT GLU (test code = 8748908762) 167 mg/dL 70-110 H Lab Interpretation (test code = Abnormal 05580-0) [facility] GLUCOSE (AUTOMATED)2021-11-01 17:40:19 Test Item Value Reference Range Interpretation Comments POCT GLU (test code = 8309717988) 193 mg/dL 70-110 H Lab Interpretation (test code = Abnormal 07476-5) [facility] GLUCOSE (AUTOMATED)2021-11-01 13:44:28 Test Item Value Reference Range Interpretation Comments POCT GLU (test code = 0808405783) 200 mg/dL 70-110 H Lab Interpretation (test code = Abnormal 84996-1) [facility] GLUCOSE (AUTOMATED)2021-11-01 01:38:43 Test Item Value Reference Range Interpretation Comments POCT GLU (test code = 9568152723) 177 mg/dL 70-110 H Lab Interpretation (test code = Abnormal 69276-5) [facility] GLUCOSE (AUTOMATED)2021-10-31 22:39:43 Test Item Value Reference Range Interpretation Comments POCT GLU (test code = 1917498271) 174 mg/dL 70-110 H Lab Interpretation (test code = Abnormal 82188-9) [facility] GLUCOSE (AUTOMATED)2021-10-31 17:40:22 Test Item Value Reference Range Interpretation Comments POCT GLU (test code = 4015359398) 224 mg/dL 70-110 H Lab Interpretation (test code = Abnormal 84060-6) [id number] 17:14:58 Test Item Value Reference Interpretation Comments Range TROPONIN I (test 0.080 ng/mL See_Comment H [Automated code = 5163399473) message] The system which generated this result transmitted reference range : <=0.034. The reference range was not used to interpret this result as normal/abnormal . ALYSSA (test code = Reference (Normal) ALYSSA) Range (defined by the 99th percentile reference limit): <= 0.034 ng/mL Note: Cardiac troponin begins to rise 3-4 hours after the onset of ischemia. Repeat in 4-6 hours if the sample was drawn within 3-4 hours of the onset of the symptom and found normal. Diagnosis of myocardial injury is made with acute changes in cTn concentrations with at least one serial sample above the 99th percentile upper reference limit (URL), taken together with the patient's clinical presentation. Biotin has been reported to cause a negative bias, interpret results relative to patient's use of biotin. Lab Interpretation Abnormal (test code = 92566-9) [facility] [id number] 15:14:03 Test Item Value Reference Range Interpretation Comments NT-proBNP (test code 474 pg/mL See_Comment H [Autom ated = 8092102809) message] The system which generated this result transmitted reference range : <=450. The reference range was not used to interpret this result as normal/abnormal . ALYSSA (test code = ALYSSA) Biotin has been reported to cause a negative bias, interpret results relative to patient's use of biotin. Lab Interpretation Abnormal (test code = 22474-5) [facility] HospitalLIPID PANEL (44083)(TOTAL CHOLESTEROL, TRIGLYCERIDES, HDL)2021-10-31 15:05:19 Test Item Value Reference Range Interpretation Comments CHOL (test code = 101 mg/dL 120-200 L 9329368563) HDL (test code = 36 mg/dL >40 L 9369969725) HDLC RATIO (test code = See_Comment [Au tomated message] 3378677433) The system Node1 generated this result transmit diamante reference range : <=5.0. The refe rence range was not u sed to interpret th is result as normal/abnormal . TRIG (test code = 143 mg/dL 30-170 8564259293) LDL CHOL (test code = 36 mg/dL See_Comment [Auto mated message] 56329-0) The system whic h generated this result transmit diamante reference range : <=160. The refe rence range was not u sed to interpret th is result as normal/abnormal . VLDL (test code = 29 mg/dL 5-60 1805832100) Lab Interpretation (test Abnormal code = 79159-7) [facility]2021-10-31 13:44:00 Test Item Value Reference Range Interpretation Comments POCT GLU (test code = 5271369050) 150 mg/dL 70-110 H Lab Interpretation (test code = Abnormal 48312-3) General acute hospital with [id number] 11:13:14 Test Item Value Reference Range Interpretation Comments [...] as normal/abnormal . HGB (test code = 12.1 g/dL 12.2-16.4 L 718-7) HCT (test code = 34.7 % 38.4-49.3 L 4544-3) MCV (test code = 93.3 fL 81.7-95.6 787-2) MCH (test code = 32.5 pg 26.1-32.7 785-6) MCHC (test code = 34.9 g/dL 31.2-35.0 786-4) RDW-SD (test code = 39.9 fL 38.5-51.6 83029-3) RDW-CV (test code = 11.8 % 12.1-15.4 L 788-0) PLT (test code = See_Comment [Automated 777-3) message] The sy stem which generated this result transmitted reference range : 150 - 328 10*3/ ?L. The reference r corey was not used to interpret this result as normal/abnormal . MPV (test code = 11.0 fL 9.8-13.0 50633-4) NRBC/100 WBC (test See_Comment [Automat ed code = 7437289973) message] The system which generated this result transmitted reference range : 0.0 - 10.0 /100 WBCs. The refer ence range was not u sed to interpret th is result as normal/abnormal . NRBC x10^3 (test code <0.01 See_Comment [Auto mated = 9210018575) message] The s ystem which generated this result transmitted reference range : 10*3/?L. The reference range was not used to interpret this result as normal/abnormal . GRAN MAT (NEUT) % 64.3 % (test code = 770-8) IMM GRAN % (test code 0.30 % = 2211775020) LYMPH % (test code = 21.7 % 736-9) MONO % (test code = 10.0 % 5905-5) EOS % (test code = 3.1 % 713-8) BASO % (test code = 0.6 % 706-2) GRAN MAT x10^3(ANC) 4.35 10*3/uL 1.99-6.95 (test code = 7482513439) IMM GRAN x10^3 (test <0.03 0.00-0.06 code = 5648670074) LYMPH x10^3 (test code 1.47 10*3/uL 1.09-3.23 = 731-0) MONO x10^3 (test code 0.68 10*3/uL 0.36-1.02 = 742-7) EOS x10^3 (test code = 0.21 10*3/uL 0.06-0.53 711-2) BASO x10^3 (test code 0.04 10*3/uL 0.01-0.09 = 704-7) Lab Interpretation Abnormal (test code = 11532-0) [facility]WENDY [id number] 11:09:53 Test Item Value Reference Interpretation Comments Range TROPONIN I (test 0.101 ng/mL See_Comment H [Automated code = 7622246930) message] The system which generated this result transmitted reference range : <=0.034. The reference range was not used to interpret this result as normal/abnormal . ALYSSA (test code = Reference (Normal) ALYSSA) Range (defined by the 99th percentile reference limit): <= 0.034 ng/mL Note: Cardiac troponin begins to rise 3-4 hours after the onset of ischemia. Repeat in 4-6 hours if the sample was drawn within 3-4 hours of the onset of the symptom and found normal. Diagnosis of myocardial injury is made with acute changes in cTn concentrations with at least one serial sample above the 99th percentile upper reference limit (URL), taken together with the patient's clinical presentation. Biotin has been reported to cause a negative bias, interpret results relative to patient's use of biotin. Lab Interpretation Abnormal (test code = 38733-0) [facility] (NA, K, CL, CO2, GLUCOSE, BUN, CREATININE, CA)2021-10-31 10:59:31 Test Item Value Reference Range Interpretation Comments NA (test code = 139 mmol/L 135-145 1496930114) K (test code = 4.1 mmol/L 3.5-5.0 2660824673) CL (test code = 103 mmol/L 98-108 6420998062) CO2 TOTAL (test code = 28 mmol/L 23-31 5672108588) AGAP (test code = 2-16 5405696851) BUN (test code = 43 mg/dL 7-23 H 3455372472) GLUCOSE (test code = 165 mg/dL 70-110 H 9106671789) CREATININE (test code = 1.68 mg/dL 0.60-1.25 H 9791562555) CALCIUM (test code = 9.6 mg/dL 8.6-10.6 0027701694) eGFR (test code = mL/min/1.73m2 4606633366) ALYSSA (test code = ALYSSA) Association of [...] tests). Lab Interpretation Abnormal (test code = 05870-7) [facility] HospitalGlycosylated Hemoglobin (A1C)2021-10-31 09:13:40 Test Item Value Reference Range Interpretation Comments HGB A1C (test code = 6.8 % 4.0-5.7 H 4548-4) ALYSSA (test code = ALYSSA) Reference RangesNormal: <5.7%Prediabetes: 5.7 - 6.4%Diabetes: > 6.5% Lab Interpretation (test Abnormal code = 19915-3) [facility]TR[facility] [id number] 06:48:18 Test Item Value Reference Interpretation Comments Range TROPONIN I (test 0.082 ng/mL See_Comment H [Automated code = 4218548081) message] The system which generated this result transmitted reference range : <=0.034. The reference range was not used to interpret this result as normal/abnormal . ALYSSA (test code = Reference (Normal) ALYSSA) Range (defined by the 99th percentile reference limit): <= 0.034 ng/mL Note: Cardiac troponin begins to rise 3-4 hours after the onset of ischemia. Repeat in 4-6 hours if the sample was drawn within 3-4 hours of the onset of the symptom and found normal. Diagnosis of myocardial injury is made with acute changes in cTn concentrations with at least one serial sample above the 99th percentile upper reference limit (URL), taken together with the patient's clinical presentation. Biotin has been reported to cause a negative bias, interpret results relative to patient's use of biotin. Lab Interpretation Abnormal (test code = 89700-0) [facility] HospitalTROP[facility]IN [id number] 02:09:48 Test Item Value Reference Interpretation Comments Range TROPONIN I (test 0.067 ng/mL See_Comment H [Automated code = 2133580193) message] The system which generated this result transmitted reference range : <=0.034. The reference range was not used to interpret this result as normal/abnormal . ALYSSA (test code = Reference (Normal) ALYSSA) Range (defined by the 99th percentile reference limit): <= 0.034 ng/mL Note: Cardiac troponin begins to rise 3-4 hours after the onset of ischemia. Repeat in 4-6 hours if the sample was drawn within 3-4 hours of the onset of the symptom and found normal. Diagnosis of myocardial injury is made with acute changes in cTn concentrations with at least one serial sample above the 99th percentile upper reference limit (URL), taken together with the patient's clinical presentation. Biotin has been reported to cause a negative bias, interpret results relative to patient's use of biotin. Lab Interpretation Abnormal (test code = 68097-1) [facility]AL [id number] 02:06:31 Test Item Value Reference Range Interpretation Comments NT-proBNP (test code 318 pg/mL See_Comment [Autom ated = 2610228795) message] The system which generated this result transmitted reference range : <=450. The reference range was not used to interpret this result as normal/abnormal . ALYSSA (test code = ALYSSA) Biotin has been reported to cause a negative bias, interpret results relative to patient's use of biotin. Lab Interpretation Normal (test code = 68781-6) [facility]. METABOLIC PANEL (52657)2021-10-31 01:58:28 Test Item Value Reference Range Interpretation Comments NA (test code = 137 mmol/L 135-145 2905368077) K (test code = 4.1 mmol/L 3.5-5.0 8451267866) CL (test code = 101 mmol/L 98-108 6763682763) CO2 TOTAL (test code = 26 mmol/L 23-31 5431863019) AGAP (test code = 2-16 2719235160) BUN (test code = 46 mg/dL 7-23 H 3796670979) GLUCOSE (test code = 213 mg/dL 70-110 H 3825088503) CREATININE (test code = 1.96 mg/dL 0.60-1.25 H 9316814189) TOTAL BILI (test code = 0.9 mg/dL 0.1-1.3 7895669968) CALCIUM (test code = 9.7 mg/dL 8.6-10.6 1049924784) T PROTEIN (test code = 7.0 g/dL 6.3-8.2 2295071491) ALBUMIN (test code = 4.3 g/dL 3.5-5.0 5259482005) ALK PHOS (test code = 58 U/L 34-122 1525495711) ALTv (test code = 20 U/L 5-50 2-6) AST(SGOT) (test code = 27 U/L 13-40 4406751983) eGFR (test code = mL/min/1.73m2 1721219758) ALYSSA (test code = ALYSSA) Association of [...] tests). Lab Interpretation Abnormal (test code = 09132-5) [facility] HospitalLIPASE, [id number] 01:57:48 Test Item Value Reference Range Interpretation Comments LIPASE (test code = 6924799043) 330 U/L 0-220 H Lab Interpretation (test code = Abnormal 55313-2) [facility] HospitalaPTT2021-12-16 01:55:04 Test Item Value Reference Range Interpretation Comments APTT Patient (test See_Comment [Automat ed code = 3173-2) message] The system which generated this result transmitted reference range : 23 - 38 Seconds . The reference range was not used to interpr et this result as normal/abnormal . ALYSSA (test code = ALYSSA) The [facility] patient population mean normal value for aPTT is 30 seconds. Lab Interpretation Normal (test code = 23538-2) [facility] HospitalPROTHROMBIN TIME / [id number] 01:53:08 Test Item Value Reference Range Interpretation Comments [...] tions. Lab Interpretation (test Normal code = 56311-8) [facility] HospitalCB WITH [id number] 01:45:44 Test Item Value Reference Range Interpretation Comments [...] as normal/abnormal . HGB (test code = 12.5 g/dL 12.2-16.4 718-7) HCT (test code = 35.4 % 38.4-49.3 L 4544-3) MCV (test code = 92.9 fL 81.7-95.6 787-2) MCH (test code = 32.8 pg 26.1-32.7 H 785-6) MCHC (test code = 35.3 g/dL 31.2-35.0 H 786-4) RDW-SD (test code = 39.1 fL 38.5-51.6 17416-0) RDW-CV (test code = 11.6 % 12.1-15.4 L 788-0) PLT (test code = See_Comment [Automated 777-3) message] The sy stem which generated this result transmitted reference range : 150 - 328 10*3/ ?L. The reference r corey was not used to interpret this result as normal/abnormal . MPV (test code = 10.4 fL 9.8-13.0 17448-2) NRBC/100 WBC (test See_Comment [Automat ed code = 9551131595) message] The system which generated this result transmitted reference range : 0.0 - 10.0 /100 WBCs. The refer ence range was not u sed to interpret th is result as normal/abnormal . NRBC x10^3 (test code <0.01 See_Comment [Auto mated = 1804918103) message] The s ystem which generated this result transmitted reference range : 10*3/?L. The reference range was not used to interpret this result as normal/abnormal . GRAN MAT (NEUT) % 62.1 % (test code = 770-8) IMM GRAN % (test code 0.30 % = 0474495682) LYMPH % (test code = 23.4 % 736-9) MONO % (test code = 10.8 % 5905-5) EOS % (test code = 2.9 % 713-8) BASO % (test code = 0.5 % 706-2) GRAN MAT x10^3(ANC) 4.14 10*3/uL 1.99-6.95 (test code = 6372886532) IMM GRAN x10^3 (test <0.03 0.00-0.06 code = 0465639837) LYMPH x10^3 (test code 1.56 10*3/uL 1.09-3.23 = 731-0) MONO x10^3 (test code 0.72 10*3/uL 0.36-1.02 = 742-7) EOS x10^3 (test code = 0.19 10*3/uL 0.06-0.53 711-2) BASO x10^3 (test code 0.03 10*3/uL 0.01-0.09 = 704-7) Lab Interpretation Abnormal (test code = 83572-0) [facility]URINALYSIS2021-06-10 21:15:48 Test Item Value Reference Range Interpretation Comments APPEARANCE (test code = Clear Clear 8942855195) COLOR (test code = Yellow Yellow 9854285746) PH (test code = 4.8-8.0 0247796953) SP GRAVITY (test code = 1.003-1.030 3586393031) GLU U QUAL (test code = 50 mg/dL Normal A 4794104970) BLOOD (test code = Negative Negative INTERFERE NCE FROM 3035991986) ASCORBIC ACID M AY CAUSE FALSE NEG ATIVE RESULT KETONES (test code = Negative Negative 3980840250) PROTEIN (test code = Negative Negative 2887-8) UROBILIN (test code = Normal Normal 5071181738) BILIRUBIN (test code = Negative Negative 0592710477) NITRITE (test code = Negative Negative 2966262077) LEUK JESS (test code = Negative Negative 5412106661) RBC/HPF (test code = See_Comment [Autom ated message] 3332402316) The system Node1 generated this result transmitted ref erence range: 0 - 3 HP F. The reference range was not used to int erpret this result as normal/abnormal . WBC/HPF (test code = See_Comment [Autom ated message] 4596707899) The system Node1 generated this result transmitted ref erence range: 0 - 5 HP F. The reference range was not used to int erpret this result as normal/abnormal . BACTERIA (test code = Negative Negative 4052234618) SQ EPITH (test code = <1 See_Comment [Auto mated message] 4490822776) The system Node1 generated this result transmitted ref erence range: <=2 HPF. The reference range was not used to int erpret this result as normal/abnormal . HYAL CAST (test code = See_Comment [Aut omated message] 7591463106) The system Node1 generated this result transmitted ref erence range: <=2 LPF. The reference range was not used to int erpret this result as normal/abnormal . Lab Interpretation (test Abnormal code = 33386-0) [facility] HospitalXR LUMBAR SPINE 2 [id number] 20:30:53 Impression: Postoperative changes. Degenerative changes. No [...] acute fracture or dislocation identified. Atherosclerotic calcifications. [facility], Radiant Results Inft User -04/25/2021 3:31 PM [...] acute bony abnormality identified.End of Report.RL: [facility] [facility] 2 VW [id number] 20:24:52Impression: Postoperative changes. Degenerative changes. No acute [...] clinicalconcern MRI is available.End of Report.RL: [facility] [facility] Metabolic Panel (NA, K, CL, CO2, GLUCOSE, BUN, CREATININE, CA)2020-05-24 14:15:00 Test Item Value Reference Range Interpretation Comments NA (test code = 139 mmol/L 135-145 8313452759) K (test code = 4.1 mmol/L 3.5-5 5169743286) CL (test code = 104 mmol/L 98-108 6277141901) CO2 TOTAL (test code = 26 mmol/L 23-31 7340990220) AGAP (test code = 2-16 1284799900) BUN (test code = 22 mg/dL 7-23 0167563267) GLUCOSE (test code = 203 mg/dL 70-110 H 0202181971) CREATININE (test code = 1.40 mg/dL 0.6-1.25 H 0704354791) CALCIUM (test code = 9.1 mg/dL 8.6-10.6 6001783657) eGFR Calculation mL/min/1.73m2 (Non-) (test code = 9536302833) eGFR Calculation mL/min/1.73m2 () (test code = 4881494818) ALYSSA (test code = ALYSSA) Association of [...] tests). Lab Interpretation Abnormal (test code = 45201-3) [facility] HospitalHepatic Function Panel (ALB, T.PRO, BILI T, BU/BC, ALT, AST, ALK PHOS)2020-05-24 13:54:00 Test Item Value Reference Range Interpretation Comments TOTAL BILI (test code = 4587404101) 0.9 mg/dL 0.1-1.1 BILI UNCON (test code = 6068623301) 1.0 mg/dL 0.1-1.1 BILI CONJ (test code = 5041190348) 0.0 mg/dL 0-0.3 T PROTEIN (test code = 8654297651) 7.0 g/dL 6.3-8.2 ALBUMIN (test code = 8982334143) 4.2 g/dL 3.5-5 ALK PHOS (test code = 7876773910) 49 U/L 34-122 ALTv (test code = 1742-6) 17 U/L 5-50 AST(SGOT) (test code = 5427071597) 25 U/L 13-40 Lab Interpretation (test code = Normal 64293-2) [facility] HospitalaPTT2020-07-09 13:32:00 Test Item Value Reference Range Interpretation Comments APTT Patient (test See_Comment [Automat ed code = 3173-2) message] The system which generated this result transmitted reference range : 23 - 38 Seconds . The reference range was not used to interpr et this result as normal/abnormal . ALYSSA (test code = ALYSSA) The [facility] patient population mean normal value for aPTT is 30 seconds. Lab Interpretation Normal (test code = 03402-2) [facility] HospitalProthrombin Time (PT) / [id number] 13:30:00 Test Item Value Reference Range Interpretation [...] tions. Lab Interpretation (test Normal code = 72265-4) [facility] WITH [id number] 13:27:00 Test Item Value Reference Range Interpretation Comments WBC (test code = See_Comment [Automated 9090-2) message] The sy stem which generated this [...] RDW-SD (test code = 42.6 fL 38.5-51.6 47807-1) RDW-CV (test code = 12.3 % 12.1-15.4 788-0) PLT (test code = See_Comment [Automated 777-3) message] The sy stem which generated this result transmitted reference range : 150 - 328 10*3/ ?L. The reference r corey was not used to interpret this result as normal/abnormal . MPV (test code = 9.9 fL 9.8-13 11357-2) NRBC/100 WBC (test See_Comment [Automat ed code = 2135187912) message] The system which generated this result transmitted reference range : 0.0 - 10.0 /100 WBCs. The refer ence range was not u sed to interpret th is result as normal/abnormal . NRBC x10^3 (test code <0.01 See_Comment [Auto mated = 0666040635) message] The s [employer] which generated this result transmitted reference range : 10*3/?L. The reference range was not used to interpret this result as normal/abnormal . GRAN MAT (NEUT) % 55.1 % (test code = 770-8) IMM GRAN % (test code 0.20 % = 7035636073) LYMPH % (test code = 28.8 % 736-9) MONO % (test code = 11.3 % 5905-5) EOS % (test code = 3.5 % 713-8) BASO % (test code = 1.1 % 706-2) GRAN MAT x10^3(ANC) 3.11 10*3/uL 1.99-6.95 (test code = 2874282426) IMM GRAN x10^3 (test <0.03 0-0.06 code = 3213299108) LYMPH x10^3 (test code 1.63 10*3/uL 1.09-3.23 = 731-0) MONO x10^3 (test code 0.64 10*3/uL 0.36-1.02 = 742-7) EOS x10^3 (test code = 0.20 10*3/uL 0.06-0.53 711-2) BASO x10^3 (test code 0.06 10*3/uL 0.01-0.09 = 704-7) Lab Interpretation Abnormal (test code = 64247-3) [facility] [id number] 13:25:58HISTORY: ?Pain. FINDINGS: AP, lateral, oblique views of left ankle obtained with portabletechnique showed no acute fracture or dislocation. No talar dome lesion.Minimal degenerative changes are seen inthe medial tibiotalar joint. Noheel spur. No significant ankle joint effusion or aggressive bone lesionsseen. CONCLUSIONS: No acute fracture or dislocation in left ankle. [facility], Radiant Results Inft User - 05/24/2020 8:27 AM CDTHISTORY: Pain.FINDINGS: AP, lateral, oblique views of left ankle obtainedwith portabletechnique showed no acute fracture or dislocation. No talar dome lesion.Minimal degenerative changes are seen in the medial tibiotalar joint. Noheel spur. No significant ankle joint effusion or aggressive bone lesionsseen.CONCLUSIONS: No acute fracture or dislocation in left ankle.[facility] GLUCOSE (AUTOMATED)2020-03-23 22:34:00 Test Item Value Reference Range Interpretation Comments POCT GLU (test code = 8921999843) 173 mg/dL 70-110 H Lab Interpretation (test code = Abnormal 79365-3) [facility] GLUCOSE (AUTOMATED)2020-03-23 22:34:00 Test Item Value Reference Range Interpretation Comments POCT GLU (test code = 9706205058) 173 mg/dL 70-110 H Lab Interpretation (test code = Abnormal 24520-5) [facility] GLUCOSE (AUTOMATED)2020-03-23 18:12:00 Test Item Value Reference Range Interpretation Comments POCT GLU (test code = 165 mg/dL 70-110 H Notifi ed Provider [id number]) Lab Interpretation (test Abnormal code = 76883-3) [facility] GLUCOSE (AUTOMATED)2020-03-23 18:12:00 Test Item Value Reference Range Interpretation Comments POCT GLU (test code = 165 mg/dL 70-110 H Notifi ed Provider [id number]) Lab Interpretation (test Abnormal code = 36512-1) [facility] GLUCOSE (AUTOMATED)2020-03-23 15:04:00 Test Item Value Reference Range Interpretation Comments POCT GLU (test code = 114 mg/dL 70-110 H Notifi ed Provider [id number]) Lab Interpretation (test Abnormal code = 65110-4) [facility] GLUCOSE (AUTOMATED)2020-03-23 15:04:00 Test Item Value Reference Range Interpretation Comments POCT GLU (test code = 114 mg/dL 70-110 H Notifi ed Provider [id number]) Lab Interpretation (test Abnormal code = 45783-2) [facility] [id number] 13:23:00 Test Item Value Reference Range Interpretation Comments FERRITIN (test code = 139.0 ng/mL 18-464 8589562929) ALYSSA (test code = ALYSSA) Biotin has been reported to cause a negative bias, interpret results relative to patient's use of biotin. Lab Interpretation (test Normal code = 25932-2) [facility] [id number] 13:23:00 Test Item Value Reference Range Interpretation Comments FERRITIN (test code = 139.0 ng/mL 18-464 9858633667) ALYSSA (test code = AYLSSA) Biotin has been reported to cause a negative bias, interpret results relative to patient's use of biotin. Lab Interpretation (test Normal code = 58920-2) [facility] [id number] 12:53:00 Test Item Value Reference Range Interpretation Comments IRON (test code = 9962821183) 87 ug/dL 50-160 TIBC (test code = 5087350196) 385 ug/dL 250-410 % FE SAT (test code = 2868762329) 23 % 20-50 Lab Interpretation (test code = Normal 59698-2) [facility] [id number] 12:53:00 Test Item Value Reference Range Interpretation Comments IRON (test code = 1741633008) 87 ug/dL 50-160 TIBC (test code = 4615455965) 385 ug/dL 250-410 % FE SAT (test code = 1848989389) 23 % 20-50 Lab Interpretation (test code = Normal 58869-1) [facility] 12:07:00 Test Item Value Reference Range Interpretation Comments APTT Patient (test code See_Comment HH [Au tomated message] = 3173-2) The system Node1 generated this result transmitted ref erence range: 26 - 36 Seconds. The reference range was not used to int erpret this result as normal/abnormal . Lab Interpretation (test Abnormal code = 04088-8) [facility] 12:07:00 Test Item Value Reference Range Interpretation Comments APTT Patient (test code See_Comment HH [Au tomated message] = 3173-2) The system Node1 generated this result transmitted ref erence range: 26 - 36 Seconds. The reference range was not used to int erpret this result as normal/abnormal . Lab Interpretation (test Abnormal code = 40326-7) [facility] [id number] 11:57:00 Test Item Value Reference Range Interpretation Comments TROPONIN I (test 0.046 ng/mL See_Comment H [Automated code = 7907871060) message] The system which generated this result [...] ? Lab Interpretation Abnormal (test code = 20862-8) [facility] [id number] 11:57:00 Test Item Value Reference Range Interpretation Comments TROPONIN I (test 0.046 ng/mL See_Comment H [Automated code = 5418952003) message] The system which generated this result [...] ? Lab Interpretation Abnormal (test code = 04529-6) [facility] (NA, K, CL, CO2, GLUCOSE, BUN, CREATININE, CA)2020-03-23 11:52:00 Test Item Value Reference Range Interpretation Comments NA (test code = 137 mmol/L 135-145 0181033375) K (test code = 4.1 mmol/L 3.5-5 4448381819) CL (test code = 102 mmol/L 98-108 2803838761) CO2 TOTAL (test code = 26 mmol/L 23-31 6630091745) AGAP (test code = 2-16 7393942499) BUN (test code = 18 mg/dL 7-23 0876710873) GLUCOSE (test code = 119 mg/dL 70-110 H 0669891247) CREATININE (test code = 1.14 mg/dL 0.6-1.25 4655553273) CALCIUM (test code = 9.1 mg/dL 8.6-10.6 5145288228) eGFR Calculation mL/min/1.73m2 (Non-) (test code = 9764546639) eGFR Calculation mL/min/1.73m2 () (test code = 0639225564) ALYSSA (test code = ALYSSA) Association of [...] tests). Lab Interpretation Abnormal (test code = 41340-9) [facility]2020-05-08 11:52:00 Test Item Value Reference Range Interpretation Comments MAGNESIUM (test code = 5210078756) 2.2 mg/dL 1.7-2.4 Lab Interpretation (test code = Normal 34384-1) [facility] (NA, K, CL, CO2, GLUCOSE, BUN, CREATININE, CA)2020-03-23 11:52:00 Test Item Value Reference Range Interpretation Comments NA (test code = 137 mmol/L 135-145 0185446840) K (test code = 4.1 mmol/L 3.5-5 7750652622) CL (test code = 102 mmol/L 98-108 3542549217) CO2 TOTAL (test code = 26 mmol/L 23-31 1906252561) AGAP (test code = 2-16 1176470563) BUN (test code = 18 mg/dL 7-23 6077587790) GLUCOSE (test code = 119 mg/dL 70-110 H 0505832659) CREATININE (test code = 1.14 mg/dL 0.6-1.25 8042712616) CALCIUM (test code = 9.1 mg/dL 8.6-10.6 0735502820) eGFR Calculation mL/min/1.73m2 (Non-) (test code = 6570789747) eGFR Calculation mL/min/1.73m2 () (test code = 2493648475) ALYSSA (test code = ALYSSA) Association of [...] tests). Lab Interpretation Abnormal (test code = 62102-6) [facility]2020-[facility]-08 11:52:00 Test Item Value Reference Range Interpretation Comments MAGNESIUM (test code = 2539726656) 2.2 mg/dL 1.7-2.4 Lab Interpretation (test code = Normal 09009-5) [facility] HospitalProthrombin Time (PT) / [id number] 11:36:00 Test Item Value Reference Range Interpretation Comments PROTIME PATIENT (test See_Comment [Auto mated message] code = 5964-2) The system PAK generated this result transmitted ref erence range: 10.1 - 1 2.6 Seconds. The re ference range was not u sed to interpret this result as normal/abnor mal. INR (test code = 6301-6) Nor mal INR <1.1; Warfarin Therap eutic range 2.0 to 3. 0 or 2.5 to 3.5, dep ending upon the indica tions. Lab Interpretation (test Normal code = 38569-4) [facility] HospitalProthrombin Time (PT) / [id number] 11:36:00 Test Item Value Reference Range Interpretation [...] tions. Lab Interpretation (test Normal code = 16490-2) [facility]TR[facility] [id number] 06:38:00 Test Item Value Reference Range Interpretation Comments TROPONIN I (test 0.045 ng/mL See_Comment H [Automated code = 6180300312) message] The system which generated this result [...] ? Lab Interpretation Abnormal (test code = 30172-9) [facility] [id number] 06:38:00 Test Item Value Reference Range Interpretation Comments TROPONIN I (test 0.045 ng/mL See_Comment H [Automated code = 6304070886) message] The system which generated this result [...] ? Lab Interpretation Abnormal (test code = 01718-4) [facility]OLIC PAN[facility] (NA, K, CL, CO2, GLUCOSE, BUN, CREATININE, CA)2020-03-23 06:29:00 Test Item Value Reference Range Interpretation Comments NA (test code = 137 mmol/L 135-145 7813433610) K (test code = 3.6 mmol/L 3.5-5 8480033721) CL (test code = 101 mmol/L 98-108 8107536667) CO2 TOTAL (test code = 27 mmol/L 23-31 3374370689) AGAP (test code = 2-16 1354576119) BUN (test code = 19 mg/dL 7- 7234828507) GLUCOSE (test code = 153 mg/dL 70-110 H 7641776545) CREATININE (test code = 1.22 mg/dL 0.6-1.25 6809814475) CALCIUM (test code = 8.9 mg/dL 8.6-10.6 2477466410) eGFR Calculation mL/min/1.73m2 (Non-) (test code = 2600029205) eGFR Calculation mL/min/1.73m2 () (test code = 7968248261) ALYSSA (test code = ALYSSA) Association of [...] tests). Lab Interpretation Abnormal (test code = 72444-1) [facility] Test Item Value Reference Range Interpretation Comments MAGNESIUM (test code = 2062382942) 1.7 mg/dL 1.7-2.4 Lab Interpretation (test code = Normal 16767-2) [facility] HospitalLIPID PANEL (02967)(TOTAL CHOLESTEROL, TRIGLYCERIDES, HDL)2020-03-23 06:29:00 Test Item Value Reference Range Interpretation Comments CHOL (test code = 106 mg/dL 120-200 L 6541124562) HDL (test code = 46 mg/dL >40 1448119594) HDLC RATIO (test code = See_Comment [Au tomated message] 5419158028) The system Node1 generated this result transmit diamante reference range : <=5.0. The refe rence range was not u sed to interpret th is result as normal/abnormal . TRIG (test code = 74 mg/dL 30-170 0061183756) LDL CHOL (test code = 45 mg/dL See_Comment [Auto mated message] 18184-2) The system Node1 generated this result transmit diamante reference range : <=160. The refe rence range was not u sed to interpret th is result as normal/abnormal . VLDL (test code = 15 mg/dL 5-60 3980469132) Lab Interpretation (test Abnormal code = 21957-2) [facility] (NA, K, CL, CO2, GLUCOSE, BUN, CREATININE, CA)2020-03-23 06:29:00 Test Item Value Reference Range Interpretation Comments NA (test code = 137 mmol/L 135-145 3333150920) K (test code = 3.6 mmol/L 3.5-5 8937198765) CL (test code = 101 mmol/L 98-108 6357906439) CO2 TOTAL (test code = 27 mmol/L 23-31 4208404112) AGAP (test code = 2-16 7326957701) BUN (test code = 19 mg/dL 7-23 2891645781) GLUCOSE (test code = 153 mg/dL 70-110 H 5090425775) CREATININE (test code = 1.22 mg/dL 0.6-1.25 5820861714) CALCIUM (test code = 8.9 mg/dL 8.6-10.6 7095975298) eGFR Calculation mL/min/1.73m2 (Non-) (test code = 5038031046) eGFR Calculation mL/min/1.73m2 () (test code = 1767234373) ALYSSA (test code = ALYSSA) Association of [...] tests). Lab Interpretation Abnormal (test code = 91658-4) [facility]2020-05-08 06:29:00 Test Item Value Reference Range Interpretation Comments MAGNESIUM (test code = 6896591096) 1.7 mg/dL 1.7-2.4 Lab Interpretation (test code = Normal 26070-3) [facility] HospitalLIPID PANEL (35750)(TOTAL CHOLESTEROL, TRIGLYCERIDES, HDL)2020-03-23 06:29:00 Test Item Value Reference Range Interpretation Comments CHOL (test code = 106 mg/dL 120-200 L 2198940860) HDL (test code = 46 mg/dL >40 5464268604) HDLC RATIO (test code = See_Comment [Au tomated message] 3080470578) The system Node1 generated this result transmit diamante reference range : <=5.0. The refe rence range was not u sed to interpret th is result as normal/abnormal . TRIG (test code = 74 mg/dL 30-170 9847202767) LDL CHOL (test code = 45 mg/dL See_Comment [Auto mated message] 41676-6) The system Node1 generated this result transmit diamante reference range : <=160. The refe rence range was not u sed to interpret th is result as normal/abnormal . VLDL (test code = 15 mg/dL 5-60 4522610127) Lab Interpretation (test Abnormal code = 23448-5) [facility] Test Item Value Reference Range Interpretation Comments APTT Patient (test code = See_Comment [ Automated message] 3173-2) The system Node1 generated this result transmitted ref erence range: 26 - 36 Seconds. The re ference range was not u sed to interpret this result as normal/abnor mal. Lab Interpretation (test Normal code = 50346-7) [facility]2020-[facility] 03:18:00 Test Item Value Reference Range Interpretation Comments APTT Patient (test code = See_Comment [ Automated message] 3173-2) The system Node1 generated this result transmitted ref erence range: 26 - 36 Seconds. The re ference range was not u sed to interpret this result as normal/abnor mal. Lab Interpretation (test Normal code = 72734-4) [facility] HospitalPROTHROMBIN TIME / [id number] 03:07:00 Test Item Value Reference Range Interpretation Comments PROTIME PATIENT (test See_Comment [Auto mated message] code = 5964-2) The system PAK generated this result transmitted ref erence range: 10.1 - 1 2.6 Seconds. The re ference range was not u sed to interpret this result as normal/abnor mal. INR (test code = 6301-6) Nor mal INR <1.1; Warfarin Therap eutic range 2.0 to 3. 0 or 2.5 to 3.5, dep ending upon the indica tions. Lab Interpretation (test Normal code = 87070-6) [facility] HospitalPROTHROMBIN TIME / [id number] 03:07:00 Test Item Value Reference Range Interpretation Comments PROTIME PATIENT (test See_Comment [Auto mated message] code = 5964-2) The system PAK generated this result transmitted ref erence range: 10.1 - 1 2.6 Seconds. The re ference range was not u sed to interpret this result as normal/abnor mal. INR (test code = 6301-6) Nor mal INR <1.1; Warfarin Therap eutic range 2.0 to 3. 0 or 2.5 to 3.5, dep ending upon the indica tions. Lab Interpretation (test Normal code = 26761-8) [facility] 2 [id number] 02:23:32 No acute cardiopulmonary process. Preliminary Report [...] reviewed this study and agree with the abovereport.[facility] 2 [id number] 02:23:32 No acute cardiopulmonary process. Preliminary Report [...] acute cardiopulmonary process.Preliminary Report Dictated by Resident: Stewart Biggs, Dirk Foss MD., have reviewed this study and agree with the abovereport.[facility] HospitalCORONAVIRUS COVID-19 [id number] 01:23:00 Test Item Value Reference Range Interpretation Comments SARS-CoV-2 (test code = Not Detected Not Detected 54273-1) ALYSSA (test code = ALYSSA) ID NOW COVID-19 Assay is an isothermal nucleic acid amplification test intended for the qualitative detection of nucleic acid from SARS-CoV-2 viral RNA in nasopharyngeal ([employer]LL [employer]ACHINE [employer]ENDER) specimens. It is used under Emergency Use [...] indicated. Lab Interpretation Normal (test code = 37453-9) [facility]CORON[facility] COVID-19 [id number] 01:23:00 Test Item Value Reference Range Interpretation Comments SARS-CoV-2 (test code = Not Detected Not Detected 21144-3) ALYSSA (test code = ALYSSA) ID NOW COVID-19 Assay is an isothermal nucleic acid amplification test intended for the qualitative detection of nucleic acid from SARS-CoV-2 viral RNA in nasopharyngeal (DR[employer] CELL [employer] MACHINE TENDER) specimens. It is used under Emergency Use [...] indicated. Lab Interpretation Normal (test code = 76232-6) [facility] HospitalN-TERMINAL [id number] 00:12:00 Test Item Value Reference Range Interpretation Comments NT-proBNP (test code 585 pg/mL See_Comment H [Autom ated = 0430820771) message] The system which generated this result transmitted reference range : <=450. The reference range was not used to interpret this result as normal/abnormal . ALYSSA (test code = ALYSSA) Biotin has been reported to cause a negative bias, interpret results relative to patient's use of biotin. Lab Interpretation Abnormal (test code = 10666-6) [facility]TR[facility] [id number] 00:12:00 Test Item Value Reference Range Interpretation Comments TROPONIN I (test 0.030 ng/mL See_Comment [Automated code = 1093322113) message] The system which generated this result [...] ? Lab Interpretation Normal (test code = 93724-6) [facility]N-[facility]MINAL [id number] 00:12:00 Test Item Value Reference Range Interpretation Comments NT-proBNP (test code 585 pg/mL See_Comment H [Autom ated = 4966901813) message] The system which generated this result transmitted reference range : <=450. The reference range was not used to interpret this result as normal/abnormal . ALYSSA (test code = ALYSSA) Biotin has been reported to cause a negative bias, interpret results relative to patient's use of biotin. Lab Interpretation Abnormal (test code = 55491-4) [facility] [id number] 00:12:00 Test Item Value Reference Range Interpretation Comments TROPONIN I (test 0.030 ng/mL See_Comment [Automated code = 3684673304) message] The system which generated this result [...] ? Lab Interpretation Normal (test code = 77221-8) [facility] HospitalCOMP. METABOLIC PANEL (12459)2020-03-23 00:03:00 Test Item Value Reference Range Interpretation Comments NA (test code = 138 mmol/L 135-145 5686248522) K (test code = 4.1 mmol/L 3.5-5 0212662385) CL (test code = 103 mmol/L 98-108 6608975741) CO2 TOTAL (test code = 26 mmol/L 23-31 9159296291) AGAP (test code = 2-16 6012876296) BUN (test code = 18 mg/dL 7-23 8148905605) GLUCOSE (test code = 157 mg/dL 70-110 H 9018410224) CREATININE (test code = 1.19 mg/dL 0.6-1.25 1886332856) TOTAL BILI (test code = 1.1 mg/dL 0.1-1.7 5814787620) CALCIUM (test code = 9.2 mg/dL 8.6-10.6 6328184059) T PROTEIN (test code = 6.8 g/dL 6.3-8.2 2246702035) ALBUMIN (test code = 4.0 g/dL 3.5-5 5562778488) ALK PHOS (test code = 51 U/L 34-122 1691439148) ALTv (test code = 16 U/L 5-50 1742-6) AST(SGOT) (test code = 23 U/L 13-40 5738176812) eGFR Calculation mL/min/1.73m2 (Non-) (test code = 2873279193) eGFR Calculation mL/min/1.73m2 () (test code = 1737850165) ALYSSA (test code = ALYSSA) Association of [...] tests). Lab Interpretation Abnormal (test code = 75935-7) [facility]. METABOLIC PANEL (89679)2020-03-23 00:03:00 Test Item Value Reference Range Interpretation Comments NA (test code = 138 mmol/L 135-145 5033367699) K (test code = 4.1 mmol/L 3.5-5 0798187653) CL (test code = 103 mmol/L 98-108 8384859566) CO2 TOTAL (test code = 26 mmol/L 23-31 3919301199) AGAP (test code = 2-16 4939378743) BUN (test code = 18 mg/dL 7-23 5183238050) GLUCOSE (test code = 157 mg/dL 70-110 H 7673282911) CREATININE (test code = 1.19 mg/dL 0.6-1.25 3992919795) TOTAL BILI (test code = 1.1 mg/dL 0.1-1.9 1136722677) CALCIUM (test code = 9.2 mg/dL 8.6-10.6 4031375163) T PROTEIN (test code = 6.8 g/dL 6.3-8.2 1854900547) ALBUMIN (test code = 4.0 g/dL 3.5-5 4789578382) ALK PHOS (test code = 51 U/L 34-122 7340073492) ALTv (test code = 16 U/L 5-50 1742-6) AST(SGOT) (test code = 23 U/L 13-40 2761314968) eGFR Calculation mL/min/1.73m2 (Non-) (test code = 8113217305) eGFR Calculation mL/min/1.73m2 () (test code = 7088171011) ALYSSA (test code = ALYSSA) Association of [...] tests). Lab Interpretation Abnormal (test code = 95497-1) [facility] WITH [id number] 23:57:00 Test Item Value Reference Range Interpretation Comments WBC (test code = See_Comment [Automated 4690-2) message] The sy stem which generated this [...] RDW-SD (test code = 49.6 fL 38.5-51.6 17624-1) RDW-CV (test code = 14.6 % 12.1-15.4 788-0) PLT (test code = See_Comment L [Automated 777-3) message] The sy stem which generated this result transmitted reference range : 150 - 328 10*3/ ?L. The reference r corey was not used to interpret this result as normal/abnormal . MPV (test code = 9.9 fL 9.8-13 43883-7) NRBC/100 WBC (test See_Comment [Automat ed code = 5707523106) message] The system which generated this result transmitted reference range : 0.0 - 10.0 /100 WBCs. The refer ence range was not u sed to interpret th is result as normal/abnormal . NRBC x10^3 (test code <0.01 See_Comment [Auto mated = 0651327747) message] The s ystem which generated this result transmitted reference range : 10*3/?L. The reference range was not used to interpret this result as normal/abnormal . GRAN MAT (NEUT) % 55.3 % (test code = 770-8) IMM GRAN % (test code 0.20 % = 6201323536) LYMPH % (test code = 28.3 % 736-9) MONO % (test code = 12.6 % 5905-5) EOS % (test code = 3.1 % 713-8) BASO % (test code = 0.5 % 706-2) GRAN MAT x10^3(ANC) 3.20 10*3/uL 1.99-6.95 (test code = 0444242299) IMM GRAN x10^3 (test <0.03 0-0.06 code = 5128819689) LYMPH x10^3 (test code 1.64 10*3/uL 1.09-3.23 = 731-0) MONO x10^3 (test code 0.73 10*3/uL 0.36-1.02 = 742-7) EOS x10^3 (test code = 0.18 10*3/uL 0.06-0.53 711-2) BASO x10^3 (test code 0.03 10*3/uL 0.01-0.09 = 704-7) Lab Interpretation Abnormal (test code = 39144-0) [facility] WITH [id number] 23:57:00 Test Item Value Reference Range Interpretation [...] RDW-SD (test code = 49.6 fL 38.5-51.6 01913-1) RDW-CV (test code = 14.6 % 12.1-15.4 788-0) PLT (test code = See_Comment L [Automated 777-3) message] The sy stem which generated this result transmitted reference range : 150 - 328 10*3/ ?L. The reference r corey was not used to interpret this result as normal/abnormal . MPV (test code = 9.9 fL 9.8-13 52868-1) NRBC/100 WBC (test See_Comment [Automat ed code = 4858836285) message] The system which generated this result transmitted reference range : 0.0 - 10.0 /100 WBCs. The refer ence range was not u sed to interpret th is result as normal/abnormal . NRBC x10^3 (test code <0.01 See_Comment [Auto mated = 9711467950) message] The s ystem which generated this result transmitted reference range : 10*3/?L. The reference range was not used to interpret this result as normal/abnormal . GRAN MAT (NEUT) % 55.3 % (test code = 770-8) IMM GRAN % (test code 0.20 % = 3482815825) LYMPH % (test code = 28.3 % 736-9) MONO % (test code = 12.6 % 5905-5) EOS % (test code = 3.1 % 713-8) BASO % (test code = 0.5 % 706-2) GRAN MAT x10^3(ANC) 3.20 10*3/uL 1.99-6.95 (test code = 0365767139) IMM GRAN x10^3 (test <0.03 0-0.06 code = 2021659756) LYMPH x10^3 (test code 1.64 10*3/uL 1.09-3.23 = 731-0) MONO x10^3 (test code 0.73 10*3/uL 0.36-1.02 = 742-7) EOS x10^3 (test code = 0.18 10*3/uL 0.06-0.53 711-2) BASO x10^3 (test code 0.03 10*3/uL 0.01-0.09 = 704-7) Lab Interpretation Abnormal (test code = 71882-5) [facility] COVID[facility]19 [id number] 21:48:00 Test Item Value Reference Range Interpretation Comments SARS-CoV-2 (test code = Not Detected Not Detected 78007-3) ALYSSA (test code = ALYSSA) ID NOW COVID-19 Assay is an isothermal nucleic acid amplification test intended for the qualitative detection of nucleic acid from SARS-CoV-2 viral RNA in nasopharyngeal (DRY CELL ASSEMBLY MACHINE TENDER) specimens. It is used under Emergency Use [...] indicated. Lab Interpretation Normal (test code = 43107-2) [facility] [id number] 21:44:00 Test Item Value Reference Range Interpretation Comments TROPONIN I (test 0.027 ng/mL See_Comment [Automated code = 4133531637) message] The system which generated this result [...] ? Lab Interpretation Normal (test code = 18684-2) [facility] HospitalProthrombin Time (PT) / [id number] 21:41:00 Test Item Value Reference Range Interpretation [...] tions. Lab Interpretation (test Normal code = 47756-7) [facility] HospitalN-TERMINAL [id number] 21:39:00 Test Item Value Reference Range Interpretation Comments NT-proBNP (test code 663 pg/mL See_Comment H [Autom ated = 1561074717) message] The system which generated this result transmitted reference range : <=450. The reference range was not used to interpret this result as normal/abnormal . ALYSSA (test code = ALYSSA) Biotin has been reported to cause a negative bias, interpret results relative to patient's use of biotin. Lab Interpretation Abnormal (test code = 20614-8) [facility] HospitalCOM. METABOLIC PANEL (13476)2020-03-21 21:37:00 Test Item Value Reference Range Interpretation Comments NA (test code = 139 mmol/L 135-145 6905912657) K (test code = 4.1 mmol/L 3.5-5 4712555524) CL (test code = 102 mmol/L 98-108 8424354056) CO2 TOTAL (test code = 29 mmol/L 23-31 7129006712) AGAP (test code = 2-16 2020009715) BUN (test code = 18 mg/dL 7-23 5035006967) GLUCOSE (test code = 277 mg/dL 70-110 H 7244705889) CREATININE (test code = 1.23 mg/dL 0.6-1.25 7200140001) TOTAL BILI (test code = 1.3 mg/dL 0.1-1.1 H 5455617214) CALCIUM (test code = 9.8 mg/dL 8.6-10.6 1316596597) T PROTEIN (test code = 7.0 g/dL 6.3-8.2 0528895046) ALBUMIN (test code = 4.2 g/dL 3.5-5 1444119876) ALK PHOS (test code = 50 U/L 34-122 1823367917) ALTv (test code = 15 U/L 5-50 1742-6) AST(SGOT) (test code = 22 U/L 13-40 3347354795) eGFR Calculation mL/min/1.73m2 (Non-) (test code = 0386836702) eGFR Calculation mL/min/1.73m2 () (test code = 0102694698) ALYSSA (test code = ALYSSA) Association of [...] tests). Lab Interpretation Abnormal (test code = 12900-9) [facility] HospitalLipase [id number] 21:37:00 Test Item Value Reference Range Interpretation Comments LIPASE (test code = 0346587387) 161 U/L 0-220 Lab Interpretation (test code = Normal 20480-5) [facility] HospitalChes 1 [id number] 20:46:31HISTORY: Chest pain. TECHNIQUE: Portable AP view [...] noted. Mild thoracolumbar scoliosis noted.CONCLUSIONS: Mild cardiomegaly. [facility] HospitalLanyic Acid Whole [id number] 20:43:00 Test Item Value Reference Range Interpretation Comments LACTIC ACID (test code = 1.91 mmol/L 0.3-2.6 8807894701) [facility] GLUCOSE (AUTOMATED)2020-03-07 20:58:00 Test Item Value Reference Range Interpretation Comments POCT GLU (test code = 5644124593) 216 mg/dL 70-110 H Lab Interpretation (test code = Abnormal 17478-8) [facility] GLUCOSE (AUTOMATED)2020-03-07 16:00:00 Test Item Value Reference Range Interpretation Comments POCT GLU (test code = 5450226923) 168 mg/dL 70-110 H Lab Interpretation (test code = Abnormal 93153-0) [facility] GLUCOSE (AUTOMATED)2020-03-07 13:07:00 Test Item Value Reference Range Interpretation Comments POCT GLU (test code = 9962981643) 148 mg/dL 70-110 H Lab Interpretation (test code = Abnormal 30128-2) [facility] HospitalTROPONIN [id number] 11:27:00 Test Item Value Reference Range Interpretation Comments TROPONIN I (test 0.051 ng/mL See_Comment H [Automated code = 9031422216) message] The system which generated this result [...] ? Lab Interpretation Abnormal (test code = 97779-9) [facility] HospitalN-TERMINAL [id number] 11:24:00 Test Item Value Reference Range Interpretation Comments NT-proBNP (test code 336 pg/mL See_Comment [Autom ated = 5665709453) message] The system which generated this result transmitted reference range : <=450. The reference range was not used to interpret this result as normal/abnormal . ALYSSA (test code = ALYSSA) Biotin has been reported to cause a negative bias, interpret results relative to patient's use of biotin. Lab Interpretation Normal (test code = 72761-6) [facility] HospitalBasi Metabolic Panel (NA, K, CL, CO2, GLUCOSE, BUN, CREATININE, CA)2020-03-07 11:14:00 Test Item Value Reference Range Interpretation Comments NA (test code = 138 mmol/L 135-145 6583446340) K (test code = 3.8 mmol/L 3.5-5 3442929861) CL (test code = 97 mmol/L 98-108 L 9827115757) CO2 TOTAL (test code = 30 mmol/L 23-31 3229014479) AGAP (test code = 2-16 4945099772) BUN (test code = 36 mg/dL 7-23 H 2384156037) GLUCOSE (test code = 140 mg/dL 70-110 H 6141072371) CREATININE (test code = 1.50 mg/dL 0.6-1.25 H 3871923792) CALCIUM (test code = 10.0 mg/dL 8.6-10.6 1540977934) eGFR Calculation mL/min/1.73m2 (Non-) (test code = 9469209564) eGFR Calculation mL/min/1.73m2 () (test code = 6675837434) ALYSSA (test code = ALYSSA) Association of [...] tests). Lab Interpretation Abnormal (test code = 82723-7) [facility] HospitalURIC [id number] 11:14:00 Test Item Value Reference Range Interpretation Comments URIC ACID (test code = 5393437966) 5.4 mg/dL 3.6-8 Lab Interpretation (test code = Normal 64523-0) [facility] HospitalCB WITH [id number] 10:53:00 Test Item Value Reference Range Interpretation [...] RDW-SD (test code = 45.1 fL 38.5-51.6 33699-3) RDW-CV (test code = 14.2 % 12.1-15.4 788-0) PLT (test code = See_Comment [Automated 777-3) message] The sy stem which generated this result transmitted reference range : 150 - 328 10*3/ ?L. The reference r corey was not used to interpret this result as normal/abnormal . MPV (test code = 9.8 fL 9.8-13 72761-1) NRBC/100 WBC (test See_Comment [Automat ed code = 8825208954) message] The system which generated this result transmitted reference range : 0.0 - 10.0 /100 WBCs. The refer ence range was not u sed to interpret th is result as normal/abnormal . NRBC x10^3 (test code <0.01 See_Comment [Auto mated = 9913182471) message] The s ystem which generated this result transmitted reference range : 10*3/?L. The reference range was not used to interpret this result as normal/abnormal . GRAN MAT (NEUT) % 51.0 % (test code = 770-8) IMM GRAN % (test code 0.50 % = 4857102635) LYMPH % (test code = 32.0 % 736-9) MONO % (test code = 11.3 % 5905-5) EOS % (test code = 4.3 % 713-8) BASO % (test code = 0.9 % 706-2) GRAN MAT x10^3(ANC) 2.85 10*3/uL 1.99-6.95 (test code = 8079918943) IMM GRAN x10^3 (test 0.03 10*3/uL 0-0.06 code = 3775668137) LYMPH x10^3 (test code 1.79 10*3/uL 1.09-3.23 = 731-0) MONO x10^3 (test code 0.63 10*3/uL 0.36-1.02 = 742-7) EOS x10^3 (test code = 0.24 10*3/uL 0.06-0.53 711-2) BASO x10^3 (test code 0.05 10*3/uL 0.01-0.09 = 704-7) Lab Interpretation Abnormal (test code = 21559-0) [facility] GLUCOSE (AUTOMATED)2020-03-06 22:46:00 Test Item Value Reference Range Interpretation Comments POCT GLU (test code = 3225550426) 209 mg/dL 70-110 H Lab Interpretation (test code = Abnormal 09392-7) [facility] GLUCOSE (AUTOMATED)2020-03-06 16:23:00 Test Item Value Reference Range Interpretation Comments POCT GLU (test code = 1088995031) 254 mg/dL 70-110 H Lab Interpretation (test code = Abnormal 97098-5) [facility] GLUCOSE (AUTOMATED)2020-03-06 12:51:00 Test Item Value Reference Range Interpretation Comments POCT GLU (test code = 9822139623) 126 mg/dL 70-110 H Lab Interpretation (test code = Abnormal 26211-7) [facility] HospitalTROPONIN [id number] 10:16:00 Test Item Value Reference Range Interpretation Comments TROPONIN I (test 0.056 ng/mL See_Comment H [Automated code = 3817131019) message] The system which generated this result [...] ? Lab Interpretation Abnormal (test code = 55036-5) [facility] HospitalBasic Metabolic Panel (NA, K, CL, CO2, GLUCOSE, BUN, CREATININE, CA)2020-03-06 10:13:00 Test Item Value Reference Range Interpretation Comments NA (test code = 136 mmol/L 135-145 0988086867) K (test code = 4.1 mmol/L 3.5-5 3301927280) CL (test code = 95 mmol/L 98-108 L 0575218324) CO2 TOTAL (test code = 30 mmol/L 23-31 6026742262) AGAP (test code = 2-16 9070785861) BUN (test code = 35 mg/dL 7-23 H 7396052999) GLUCOSE (test code = 174 mg/dL 70-110 H 0809462037) CREATININE (test code = 1.67 mg/dL 0.6-1.25 H 3638865974) CALCIUM (test code = 9.7 mg/dL 8.6-10.6 2678479546) eGFR Calculation mL/min/1.73m2 (Non-) (test code = 8319571035) eGFR Calculation mL/min/1.73m2 () (test code = 1939424857) ALYSSA (test code = ALYSSA) Association of [...] tests). Lab Interpretation Abnormal (test code = 24847-5) [facility] WITH [id number] 09:16:00 Test Item Value Reference Range Interpretation [...] RDW-SD (test code = 45.6 fL 38.5-51.6 25342-3) RDW-CV (test code = 14.3 % 12.1-15.4 788-0) PLT (test code = See_Comment [Automated 777-3) message] The sy stem which generated this result transmitted reference range : 150 - 328 10*3/ ?L. The reference r corey was not used to interpret this result as normal/abnormal . MPV (test code = 9.8 fL 9.8-13 77701-6) NRBC/100 WBC (test See_Comment [Automat ed code = 1113496303) message] The system which generated this result transmitted reference range : 0.0 - 10.0 /100 WBCs. The refer ence range was not u sed to interpret th is result as normal/abnormal . NRBC x10^3 (test code <0.01 See_Comment [Auto mated = 8640523106) message] The s ystem which generated this result transmitted reference range : 10*3/?L. The reference range was not used to interpret this result as normal/abnormal . GRAN MAT (NEUT) % 56.1 % (test code = 770-8) IMM GRAN % (test code 0.10 % = 3756051433) LYMPH % (test code = 29.7 % 736-9) MONO % (test code = 9.6 % 5905-5) EOS % (test code = 3.8 % 713-8) BASO % (test code = 0.7 % 706-2) GRAN MAT x10^3(ANC) 3.79 10*3/uL 1.99-6.95 (test code = 6771738005) IMM GRAN x10^3 (test <0.03 0-0.06 code = 5705353768) LYMPH x10^3 (test code 2.01 10*3/uL 1.09-3.23 = 731-0) MONO x10^3 (test code 0.65 10*3/uL 0.36-1.02 = 742-7) EOS x10^3 (test code = 0.26 10*3/uL 0.06-0.53 711-2) BASO x10^3 (test code 0.05 10*3/uL 0.01-0.09 = 704-7) Lab Interpretation Abnormal (test code = 07408-7) [facility]PO[facility] ([facility])2020-03-06 01:25:00 Test Item Value Reference Range Interpretation Comments POCT GLU (test code = 8404727313) 208 mg/dL 70-110 H Lab Interpretation (test code = Abnormal 18662-8) [facility] HospitalTROPONIN [id number] 00:08:00 Test Item Value Reference Range Interpretation Comments TROPONIN I (test 0.047 ng/mL See_Comment H [Automated code = 2878382190) message] The system which generated this result [...] ? Lab Interpretation Abnormal (test code = 83334-9) [facility] GLUCOSE (AUTOMATED)2020-03-05 21:19:00 Test Item Value Reference Range Interpretation Comments POCT GLU (test code = 1151361542) 234 mg/dL 70-110 H Lab Interpretation (test code = Abnormal 49537-8) [facility] GLUCOSE (AUTOMATED)2020-03-05 16:55:00 Test Item Value Reference Range Interpretation Comments POCT GLU (test code = 0459176992) 258 mg/dL 70-110 H Lab Interpretation (test code = Abnormal 77266-5) [facility] GLUCOSE (AUTOMATED)2020-03-05 12:59:00 Test Item Value Reference Range Interpretation Comments POCT GLU (test code = 9067051685) 194 mg/dL 70-110 H Lab Interpretation (test code = Abnormal 10112-3) [facility]TR[facility] [id number] 10:54:00 Test Item Value Reference Range Interpretation Comments TROPONIN I (test 0.071 ng/mL See_Comment H [Automated code = 0318581625) message] The system which generated this result [...] ? Lab Interpretation Abnormal (test code = 16699-1) [facility] (NA, K, CL, CO2, GLUCOSE, BUN, CREATININE, CA)2020-03-05 10:43:00 Test Item Value Reference Range Interpretation Comments NA (test code = 139 mmol/L 135-145 7813115893) K (test code = 4.1 mmol/L 3.5-5 4511556119) CL (test code = 101 mmol/L 98-108 3303511666) CO2 TOTAL (test code = 27 mmol/L 23-31 2422923324) AGAP (test code = 2-16 4960520024) BUN (test code = 25 mg/dL 7-23 H 8565057627) GLUCOSE (test code = 243 mg/dL 70-110 H 2154708698) CREATININE (test code = 1.22 mg/dL 0.6-1.25 7230979954) CALCIUM (test code = 9.8 mg/dL 8.6-10.6 2290048064) eGFR Calculation mL/min/1.73m2 (Non-) (test code = 0480937098) eGFR Calculation mL/min/1.73m2 () (test code = 7843932373) ALYSSA (test code = ALYSSA) Association of [...] tests). Lab Interpretation Abnormal (test code = 36211-0) [facility] WITH [id number] 10:23:00 Test Item Value Reference Range Interpretation Comments WBC (test code = See_Comment [Automated message] 6690-2) The system Node1 generated this result transmitted ref erence range: 4.20 - 1 0.70 10*3/?L. The re ference range was not u sed to interpret this result as normal/abnor mal. RBC (test code = See_Comment [Automated message] 789-8) The system Node1 generated this result transmitted ref erence range: [...] RDW-SD (test code 47.8 fL 38.5-51.6 = 04346-4) RDW-CV (test code 14.4 % 12.1-15.4 = 788-0) PLT (test code = See_Comment [Automated message] 777-3) The system whic h generated this result transmitted ref erence range: 150 - 32 8 10*3/?L. The re ference range was not u sed to interpret this result as normal/abnor mal. MPV (test code = 9.8 fL 9.8-13 82401-8) NRBC/100 WBC (test See_Comment [Automat ed message] code = 3453885186) The syste m which generated this result transmitted ref erence range: 0.0 - 10 .0 /100 WBCs. The refer ence range was not u sed to interpret this result as normal/abnor mal. NRBC x10^3 (test <0.01 See_Comment [Automated message] code = 3494564530) The syste m which generated this result transmitted ref erence range: 10*3/?L. The reference range was not used to interpr et this result as normal/abnormal . GRAN MAT (NEUT) % 48.8 % (test code = 770-8) IMM GRAN % (test 0.20 % code = 6431654215) LYMPH % (test code 34.7 % = 736-9) MONO % (test code 10.8 % = 5905-5) EOS % (test code = 4.9 % 713-8) BASO % (test code 0.6 % = 706-2) GRAN MAT 2.49 10*3/uL 1.99-6.95 x10^3(ANC) (test code = 6911029282) IMM GRAN x10^3 <0.03 0-0.06 (test code = 9886282470) LYMPH x10^3 (test 1.77 10*3/uL 1.09-3.23 code = 731-0) MONO x10^3 (test 0.55 10*3/uL 0.36-1.02 code = 742-7) EOS x10^3 (test 0.25 10*3/uL 0.06-0.53 code = 711-2) BASO x10^3 (test 0.03 10*3/uL 0.01-0.09 code = 704-7) [facility] HospitalXR CHEST 1 [id number] 03:06:08 No acute cardiopulmonary process. Unchanged enlargement [...] terminating over themid to lower thoracic spine. [facility], Radiant Results Inft User - 03/04/2020 10:07 [...] reviewed this study and agree with the abovereport.[facility] CORONAVIRUS COVID-19 [id number] 00:34:00 Test Item Value Reference Range Interpretation Comments SARS-CoV-2 (test code = Not Detected Not Detected 67507-5) ALYSSA (test code = ALYSSA) ID NOW COVID-19 Assay is an isothermal nucleic acid amplification test intended for the qualitative detection of nucleic acid from SARS-CoV-2 viral RNA in nasopharyngeal (DRY CELL ASSEMBLY MACHINE TENDER) specimens. It is used under Emergency Use [...] indicated. Lab Interpretation Normal (test code = 46368-7) [facility] HospitalTroponin [id number] 00:08:00 Test Item Value Reference Range Interpretation Comments TROPONIN I (test 0.056 ng/mL See_Comment H [Automated code = 7565323366) message] The system which generated this result [...] ? Lab Interpretation Abnormal (test code = 01212-5) [facility] HospitalN-TERMINAL [id number] 00:04:00 Test Item Value Reference Range Interpretation Comments NT-proBNP (test code 562 pg/mL See_Comment H [Autom ated = 5583654578) message] The system which generated this result transmitted reference range : <=450. The reference range was not used to interpret this result as normal/abnormal . ALYSSA (test code = ALYSSA) Biotin has been reported to cause a negative bias, interpret results relative to patient's use of biotin. Lab Interpretation Abnormal (test code = 43269-7) [facility] HospitalProthrombin Time (PT) / [id number] 23:57:00 Test Item Value Reference Range Interpretation Comments PROTIME PATIENT (test See_Comment [Auto mated message] code = 5964-2) The system PAK generated this result transmitted ref erence range: 12.0 - 1 4.7 Seconds. The re ference range was not u sed to interpret this result as normal/abnor mal. INR (test code = 6301-6) Nor mal INR <1.1; Warfarin Therap eutic range 2.0 to 3. 0 or 2.5 to 3.5, dep ending upon the indica tions. Lab Interpretation (test Normal code = 45797-1) [facility] Metabolic Panel (NA, K, CL, CO2, GLUCOSE, BUN, CREATININE, CA)2020-03-04 23:56:00 Test Item Value Reference Range Interpretation Comments NA (test code = 139 mmol/L 135-145 4743629704) K (test code = 4.1 mmol/L 3.5-5 8338706762) CL (test code = 102 mmol/L 98-108 4602758524) CO2 TOTAL (test code = 29 mmol/L 23-31 4439870247) AGAP (test code = 2-16 9841758888) BUN (test code = 23 mg/dL 7-23 8153062599) GLUCOSE (test code = 193 mg/dL 70-110 H 9836241927) CREATININE (test code = 1.25 mg/dL 0.6-1.25 2104157656) CALCIUM (test code = 9.7 mg/dL 8.6-10.6 3207943775) eGFR Calculation mL/min/1.73m2 (Non-) (test code = 2179827364) eGFR Calculation mL/min/1.73m2 () (test code = 3252702702) ALYSSA (test code = ALYSSA) Association of [...] tests). Lab Interpretation Abnormal (test code = 85332-6) [facility] HospitalHepatic Function Panel (ALB, T.PRO, BILI T, BU/BC, ALT, AST, ALK PHOS)2020-03-04 23:56:00 Test Item Value Reference Range Interpretation Comments TOTAL BILI (test code = 7574464355) 1.1 mg/dL 0.1-1.1 BILI UNCON (test code = 0389744662) 1.1 mg/dL 0.1-1.1 BILI CONJ (test code = 7188987467) 0.0 mg/dL 0-0.3 T PROTEIN (test code = 2322122957) 7.1 g/dL 6.3-8.2 ALBUMIN (test code = 0849439731) 4.1 g/dL 3.5-5 ALK PHOS (test code = 8767739500) 61 U/L 34-122 ALTv (test code = 1742-6) 16 U/L 5-50 AST(SGOT) (test code = 4647365402) 23 U/L 13-40 Lab Interpretation (test code = Normal 82770-0) [facility] HospitalLipase [id number] 23:56:00 Test Item Value Reference Range Interpretation Comments LIPASE (test code = 6630455328) 149 U/L 0-220 Lab Interpretation (test code = Normal 08623-1) [facility] HospitalaPTT2020-04-19 23:56:00 Test Item Value Reference Range Interpretation Comments APTT Patient (test See_Comment [Automat ed code = 3173-2) message] The system which generated this result transmitted reference range : 23 - 38 Seconds . The reference range was not used to interpr et this result as normal/abnormal . ALYSSA (test code = ALYSSA) The [facility] patient population mean normal value for aPTT is 30 seconds. Lab Interpretation Normal (test code = 44192-6) [facility] HospitalCBC WITH [id number] 23:46:00 Test Item Value Reference Range Interpretation Comments WBC (test code = See_Comment [Automated 8590-2) message] The sy stem which generated this [...] RDW-SD (test code = 48.3 fL 38.5-51.6 74105-9) RDW-CV (test code = 14.7 % 12.1-15.4 788-0) PLT (test code = See_Comment [Automated 777-3) message] The sy stem which generated this result transmitted reference range : 150 - 328 10*3/ ?L. The reference r corey was not used to interpret this result as normal/abnormal . MPV (test code = 9.8 fL 9.8-13 89750-9) NRBC/100 WBC (test See_Comment [Automat ed code = 5876015471) message] The system which generated this result transmitted reference range : 0.0 - 10.0 /100 WBCs. The refer ence range was not u sed to interpret th is result as normal/abnormal . NRBC x10^3 (test code <0.01 See_Comment [Auto mated = 8416229192) message] The s ystem which generated this result transmitted reference range : 10*3/?L. The reference range was not used to interpret this result as normal/abnormal . GRAN MAT (NEUT) % 60.1 % (test code = 770-8) IMM GRAN % (test code 0.20 % = 2246336139) LYMPH % (test code = 26.4 % 736-9) MONO % (test code = 9.9 % 5905-5) EOS % (test code = 2.8 % 713-8) BASO % (test code = 0.6 % 706-2) GRAN MAT x10^3(ANC) 3.17 10*3/uL 1.99-6.95 (test code = 3827726809) IMM GRAN x10^3 (test <0.03 0-0.06 code = 8950588654) LYMPH x10^3 (test code 1.39 10*3/uL 1.09-3.23 = 731-0) MONO x10^3 (test code 0.52 10*3/uL 0.36-1.02 = 742-7) EOS x10^3 (test code = 0.15 10*3/uL 0.06-0.53 711-2) BASO x10^3 (test code 0.03 10*3/uL 0.01-0.09 = 704-7) Lab Interpretation Abnormal (test code = 20711-5) [facility] GLUCOSE (AUTOMATED)2020-03-02 16:04:00 Test Item Value Reference Range Interpretation Comments POCT GLU (test code = 8518951244) 214 mg/dL 70-110 H Lab Interpretation (test code = Abnormal 10701-0) [facility] GLUCOSE (AUTOMATED)2020-03-02 16:04:00 Test Item Value Reference Range Interpretation Comments POCT GLU (test code = 0103607815) 271 mg/dL 70-110 H Lab Interpretation (test code = Abnormal 82998-1) [facility]N-[facility]MINAL [id number] 09:43:00 Test Item Value Reference Range Interpretation Comments NT-proBNP (test code 1670 pg/mL See_Comment H [Autom ated = 3119637977) message] The system which generated this result transmitted reference range : <=450. The reference range was not used to interpret this result as normal/abnormal . ALYSSA (test code = ALYSSA) Biotin has been reported to cause a negative bias, interpret results relative to patient's use of biotin. Lab Interpretation Abnormal (test code = 92075-6) [facility] HospitalBASI METABOLIC PANEL (NA, K, CL, CO2, GLUCOSE, BUN, CREATININE, CA)2020-03-02 09:33:00 Test Item Value Reference Range Interpretation Comments NA (test code = 143 mmol/L 135-145 3077770348) K (test code = 3.8 mmol/L 3.5-5 8490490532) CL (test code = 105 mmol/L 98-108 9753789698) CO2 TOTAL (test code = 28 mmol/L 23-31 7910979367) AGAP (test code = 2-16 9285842002) BUN (test code = 19 mg/dL 7-23 8569769327) GLUCOSE (test code = 152 mg/dL 70-110 H 6249984850) CREATININE (test code = 1.18 mg/dL 0.6-1.25 5714544001) CALCIUM (test code = 9.0 mg/dL 8.6-10.6 8924931097) eGFR Calculation mL/min/1.73m2 (Non-) (test code = 5803877737) eGFR Calculation mL/min/1.73m2 () (test code = 5820701764) ALYSSA (test code = ALYSSA) Association of [...] tests). Lab Interpretation Abnormal (test code = 33576-2) [facility]MAGNESIUM2020-04-17 09:33:00 Test Item Value Reference Range Interpretation Comments MAGNESIUM (test code = 7674623178) 1.8 mg/dL 1.7-2.4 Lab Interpretation (test code = Normal 58931-5) [facility]POCT GLUCOSE (AUTOMATED)2020-03-01 20:42:00 Test Item Value Reference Range Interpretation Comments POCT GLU (test code = 2001682062) 231 mg/dL 70-110 H Lab Interpretation (test code = Abnormal 47251-0) [facility] HospitalVITAMIN B12, [id number] 11:51:00 Test Item Value Reference Range Interpretation Comments VIT B12 (test code = 325 pg/mL 240-930 9136764704) ALYSSA (test code = ALYSSA) Biotin has been reported to cause a positive bias, interpret results relative to patient's use of biotin. Lab Interpretation (test Normal code = 37648-0) [facility] HospitalFOLATE2020-04-16 11:49:00 Test Item Value Reference Range Interpretation Comments FOLATE SER (test code = >20.0 3-20 H Slig ht hemolysis 8977895678) Lab Interpretation (test Abnormal code = 64059-0) [facility] HospitalPROCALCITONIN2020-04-16 10:49:00 Test Item Value Reference Range Interpretation Comments Procalcitonin (test 3.05 ng/mL <0.07 H code = 2236814650) ALYSSA (test code = ALYSSA) INTERPRETATION OF [...] lung abscess/empyema. For further information please refer to:[email or web address] Lab Interpretation Abnormal (test code = 64205-6) [facility] HospitalKATEKvng [id number] 09:58:00 Test Item Value Reference Range Interpretation Comments TROPONIN I (test 0.093 ng/mL See_Comment H [Automated code = 1729110633) message] The system which generated this result [...] ? Lab Interpretation Abnormal (test code = 76318-1) [facility] HospitalN-TERMINAL [id number] 09:55:00 Test Item Value Reference Range Interpretation Comments NT-proBNP (test code 4450 pg/mL See_Comment H [Autom ated = 1256829639) message] The system which generated this result transmitted reference range : <=450. The reference range was not used to interpret this result as normal/abnormal . ALYSSA (test code = ALYSSA) Biotin has been reported to cause a negative bias, interpret results relative to patient's use of biotin. Lab Interpretation Abnormal (test code = 43868-0) [facility] HospitalBasi Metabolic Panel (NA, K, CL, CO2, GLUCOSE, BUN, CREATININE, CA)2020-03-01 09:50:00 Test Item Value Reference Range Interpretation Comments NA (test code = 141 mmol/L 135-145 7923004857) K (test code = 3.5 mmol/L 3.5-5 8400367999) CL (test code = 105 mmol/L 98-108 3759169324) CO2 TOTAL (test code = 26 mmol/L 23-31 0132621456) AGAP (test code = 2-16 8252002650) BUN (test code = 13 mg/dL 7-23 4082575986) GLUCOSE (test code = 219 mg/dL 70-110 H 1824869153) CREATININE (test code = 1.01 mg/dL 0.6-1.25 6321871945) CALCIUM (test code = 8.7 mg/dL 8.6-10.6 1670719379) eGFR Calculation mL/min/1.73m2 (Non-) (test code = 3112536481) eGFR Calculation mL/min/1.73m2 () (test code = 2602649136) ALYSSA (test code = ALYSSA) Association of [...] tests). Lab Interpretation Abnormal (test code = 59044-4) [facility] HospitalMagnesium [id number] 09:50:00 Test Item Value Reference Range Interpretation Comments MAGNESIUM (test code = 9532368377) 1.9 mg/dL 1.7-2.4 Lab Interpretation (test code = Normal 88097-5) [facility] WITH [id number] 09:22:00 Test Item Value Reference Range Interpretation Comments WBC (test code = See_Comment [Automated 6990-2) message] The sy stem which generated this result transmitted reference range : 4.20 - 10.70 10*3/?L. The reference range was not used to interpret this result as normal/abnormal . RBC (test code = See_Comment L [Automated 250-8) message] The sy stem which generated this [...] RDW-SD (test code = 47.8 fL 38.5-51.6 14927-5) RDW-CV (test code = 14.8 % 12.1-15.4 788-0) PLT (test code = See_Comment L [Automated 777-3) message] The sy stem which generated this result transmitted reference range : 150 - 328 10*3/ ?L. The reference r corey was not used to interpret this result as normal/abnormal . MPV (test code = 9.9 fL 9.8-13 21515-7) NRBC/100 WBC (test See_Comment [Automat ed code = 7502428221) message] The system which generated this result transmitted reference range : 0.0 - 10.0 /100 WBCs. The refer ence range was not u sed to interpret th is result as normal/abnormal . NRBC x10^3 (test code <0.01 See_Comment [Auto mated = 6661920079) message] The s ystem which generated this result transmitted reference range : 10*3/?L. The reference range was not used to interpret this result as normal/abnormal . GRAN MAT (NEUT) % 66.0 % (test code = 770-8) IMM GRAN % (test code 0.30 % = 9349271075) LYMPH % (test code = 20.8 % 736-9) MONO % (test code = 9.5 % 5905-5) EOS % (test code = 2.8 % 713-8) BASO % (test code = 0.6 % 706-2) GRAN MAT x10^3(ANC) 4.44 10*3/uL 1.99-6.95 (test code = 1650146132) IMM GRAN x10^3 (test <0.03 0-0.06 code = 0016308085) LYMPH x10^3 (test code 1.40 10*3/uL 1.09-3.23 = 731-0) MONO x10^3 (test code 0.64 10*3/uL 0.36-1.02 = 742-7) EOS x10^3 (test code = 0.19 10*3/uL 0.06-0.53 711-2) BASO x10^3 (test code 0.04 10*3/uL 0.01-0.09 = 704-7) Lab Interpretation Abnormal (test code = 43654-5) [facility] HospitalGLYCOSYLATED HEMOGLOBIN (A1C)2020-03-01 06:49:00 Test Item Value Reference [...] Indicated Lab Interpretation Abnormal (test code = 26995-2) [facility] HospitalURIC [id number] 06:25:00 Test Item Value Reference Range Interpretation Comments URIC ACID (test code = 8228708191) 2.3 mg/dL 3.6-8 L Lab Interpretation (test code = Abnormal 03514-3) [facility] HospitalSEDIMENTATION [id number] 05:25:00 Test Item Value Reference Range Interpretation Comments ESR (test code = See_Comment H [Automated message] 2860022292) The system [employer] h generated this result transmitted ref erence range: 0 - 10 m m/HR. The reference r corey was not used to interpret this result as normal/abnor mal. Lab Interpretation (test Abnormal code = 75359-1) [facility] HospitalN-TERMINAL [id number] 04:07:00 Test Item Value Reference Range Interpretation Comments NT-proBNP (test code 4080 pg/mL See_Comment H [Autom ated = 3464951745) message] The system which generated this result transmitted reference range : <=450. The reference range was not used to interpret this result as normal/abnormal . ALYSSA (test code = ALYSSA) Biotin has been reported to cause a negative bias, interpret results relative to patient's use of biotin. Lab Interpretation Abnormal (test code = 96535-6) [facility] HospitalPOCT GLUCOSE (AUTOMATED)2020-03-01 03:42:00 Test Item Value Reference Range Interpretation Comments POCT GLU (test code = 2205915684) 190 mg/dL 70-110 H Lab Interpretation (test code = Abnormal 04845-4) [facility] HospitalTROPONIN [id number] 03:30:00 Test Item Value Reference Range Interpretation Comments TROPONIN I (test 0.098 ng/mL See_Comment H [Automated code = 1991979558) message] The system which generated this result [...] ? Lab Interpretation Abnormal (test code = 82604-2) [facility] HospitalHEPATIC FUNCTION PANEL (16551) (ALB,T.PRO,BILI T,BU/BC,ALT,AST,ALK PHOS)2020-03-01 03:24:00 Test Item Value Reference Range Interpretation Comments TOTAL BILI (test code = 9313482941) 2.2 mg/dL 0.1-1.1 H BILI UNCON (test code = 9363537052) 2.0 mg/dL 0.1-1.1 H BILI CONJ (test code = 6840132476) 0.0 mg/dL 0-0.3 T PROTEIN (test code = 7632575781) 6.7 g/dL 6.3-8.2 ALBUMIN (test code = 2635618134) 4.0 g/dL 3.5-5 ALK PHOS (test code = 6288434242) 48 U/L 34-122 ALTv (test code = 1742-6) 18 U/L 5-50 AST(SGOT) (test code = 0389776806) 57 U/L 13-40 H Lab Interpretation (test code = Abnormal 82630-8) [facility] HospitalPhosphorus [id number] 03:17:00 Test Item Value Reference Range Interpretation Comments PHOSPHORUS (test code = 3.1 mg/dL 2.5-5 Slig ht hemolysis 1080228320) Lab Interpretation (test Normal code = 26936-9) [facility] HospitalPROTHROMBIN TIME / [id number] 03:08:00 Test Item Value Reference Range Interpretation Comments PROTIME PATIENT (test See_Comment [Auto mated message] code = 5964-2) The system ich generated this result transmitted ref erence range: 12.0 - 1 4.7 Seconds. The re ference range was not u sed to interpret this result as normal/abnor mal. INR (test code = 6301-6) Nor mal INR <1.1; Warfarin Therap eutic range 2.0 to 3. 0 or 2.5 to 3.5, dep ending upon the indica tions. Lab Interpretation (test Normal code = 73933-8) [facility] HospitalCREATINE [id number] 03:01:00 Test Item Value Reference Range Interpretation Comments CK (test code = 5139534365) 68 U/L 33-194 Lab Interpretation (test code = Normal 61304-7) [facility] HospitalURIC [id number] 02:41:00 Test Item Value Reference Range Interpretation Comments URIC ACID (test code = 6017914240) 2.3 mg/dL 3.6-8 L Lab Interpretation (test code = Abnormal 21500-7) [facility] HospitalTHYROID STIMULATING [id number] 02:26:00 Test Item Value Reference Range Interpretation Comments TSH (test code = See_Comment [Automated message] 7269842795) The system Node1 generated this result transmitted ref erence range: 0.45 - 4 .70 mIU/L. The refe rence range was not u sed to interpret this result as normal/abnor mal. Lab Interpretation (test Normal code = 75178-3) [facility] HospitalN-TERMINAL [id number] 02:04:00 Test Item Value Reference Range Interpretation Comments NT-proBNP (test code 4390 pg/mL See_Comment H [Autom ated = 7584282823) message] The system which generated this result transmitted reference range : <=450. The reference range was not used to interpret this result as normal/abnormal . ALYSSA (test code = ALYSSA) Biotin has been reported to cause a negative bias, interpret results relative to patient's use of biotin. Lab Interpretation Abnormal (test code = 28034-4) [facility] HospitalMAGNESIUM2020-04-16 02:01:00 Test Item Value Reference Range Interpretation Comments MAGNESIUM (test code = 8658247682) 1.5 mg/dL 1.7-2.4 L Lab Interpretation (test code = Abnormal 64655-1) [facility] HospitalLIPASE2020-04-16 00:22:00 Test Item Value Reference Range Interpretation Comments LIPASE (test code = 3955400415) 68 U/L 0-220 Lab Interpretation (test code = Normal 65500-1) [facility] HospitalCORONAVIRUS COVID-19 [id number] 23:42:00 Test Item Value Reference Range Interpretation Comments SARS-CoV-2 (test code = Not Detected Not Detected 21016-3) ALYSSA (test code = ALYSSA) ID NOW COVID-19 Assay is an isothermal nucleic acid amplification test intended for the qualitative detection of nucleic acid from SARS-CoV-2 viral RNA in nasopharyngeal ([employer] MACHINE TENDER) specimens. It is used under Emergency Use [...] indicated. Lab Interpretation Normal (test code = 51771-0) [facility] HospitalXR CHEST 1 VW [id number] 23:26:02 No acute intrathoracic abnormality, specifically no radiographic findingsto suggest COVID-19 pneumonia. Disclaimer: Generally, the findings on chest imaging in COVID-19 are notspecific, and overlap with other infections, including influenza, H1N1,SARS and MERS. According to the Centers for Disease Control (CDC) and recent statement ofthe [employer], viral testing remains the [...] stimulating device overlie the mid thoracic spine. [facility], Radiant ResultsInft User - 02/29/2020 6:27 PM [...] Disease Control (CDC) and recent statement ofthe [employer], viral testing remains the only specificmethod of diagnosis. Confirmation with the viral test is required, even ifradiologic findings are suggestive of COVID-[address]. Preliminary Report Dictated by Resident: Radu Boo MD., have reviewed this study and agree with theabovereport.[facility] HospitalWendy [id number] 22:59:00 Test Item Value Reference Range Interpretation Comments TROPONIN I (test 0.071 ng/mL See_Comment H [Automated code = 4106711994) message] The system which generated this result [...] ? Lab Interpretation Abnormal (test code = 06623-9) [facility] HospitalBasi Metabolic Panel (NA, K, CL, CO2, GLUCOSE, BUN, CREATININE, CA)2020-02-29 22:48:00 Test Item Value Reference Range Interpretation Comments NA (test code = 141 mmol/L 135-145 9026632314) K (test code = 3.2 mmol/L 3.5-5 L 2870042483) CL (test code = 104 mmol/L 98-108 0687845879) CO2 TOTAL (test code = 25 mmol/L 23-31 4317536741) AGAP (test code = 2-16 9695806763) BUN (test code = 12 mg/dL 7-23 0333672471) GLUCOSE (test code = 250 mg/dL 70-110 H 3998673778) CREATININE (test code = 1.02 mg/dL 0.6-1.25 0516096525) CALCIUM (test code = 8.9 mg/dL 8.6-10.6 0529289185) eGFR Calculation mL/min/1.73m2 (Non-) (test code = 3514924209) eGFR Calculation mL/min/1.73m2 () (test code = 4005904823) ALYSSA (test code = ALYSSA) Association of [...] tests). Lab Interpretation Abnormal (test code = 27443-1) [facility] acute hospital WITH [id number] 22:41:00 Test Item Value Reference Range Interpretation [...] RDW-SD (test code = 46.6 fL 38.5-51.6 30497-5) RDW-CV (test code = 14.6 % 12.1-15.4 788-0) PLT (test code = See_Comment [Automated 777-3) message] The sy stem which generated this result transmitted reference range : 150 - 328 10*3/ ?L. The reference r corey was not used to interpret this result as normal/abnormal . MPV (test code = 9.7 fL 9.8-13 L 69789-5) NRBC/100 WBC (test See_Comment [Automat ed code = 5939880461) message] The system which generated this result transmitted reference range : 0.0 - 10.0 /100 WBCs. The refer ence range was not u sed to interpret th is result as normal/abnormal . NRBC x10^3 (test code <0.01 See_Comment [Auto mated = 2199219363) message] The s ystem which generated this result transmitted reference range : 10*3/?L. The reference range was not used to interpret this result as normal/abnormal . GRAN MAT (NEUT) % 68.6 % (test code = 770-8) IMM GRAN % (test code 0.30 % = 6294758690) LYMPH % (test code = 18.6 % 736-9) MONO % (test code = 10.1 % 5905-5) EOS % (test code = 1.8 % 713-8) BASO % (test code = 0.6 % 706-2) GRAN MAT x10^3(ANC) 4.29 10*3/uL 1.99-6.95 (test code = 2796535036) IMM GRAN x10^3 (test <0.03 0-0.06 code = 7163268043) LYMPH x10^3 (test code 1.16 10*3/uL 1.09-3.23 = 731-0) MONO x10^3 (test code 0.63 10*3/uL 0.36-1.02 = 742-7) EOS x10^3 (test code = 0.11 10*3/uL 0.06-0.53 711-2) BASO x10^3 (test code 0.04 10*3/uL 0.01-0.09 = 704-7) Lab Interpretation Abnormal (test code = 84585-4) [facility] HospitalLanyic Acid Whole [id number] 22:38:00 Test Item Value Reference Range Interpretation Comments LACTIC ACID (test code = 1.88 mmol/L 0.3-2.6 9930656358) [facility] HospitalPOMA GLUCOSE (AUTOMATED)2020-01-17 18:18:00 Test Item Value Reference Range Interpretation Comments POCT GLU (test code = 7324704907) 290 mg/dL 70-110 H Lab Interpretation (test code = Abnormal 93137-8) [facility] HospitalTROPONIN [id number] 18:01:00 Test Item Value Reference Range Interpretation Comments TROPONIN I (test 0.065 ng/mL See_Comment H [Automated code = 9811578304) message] The system which generated this result [...] ? Lab Interpretation Abnormal (test code = 35922-8) [facility] HospitalaPTT2020-03-03 17:10:00 Test Item Value Reference Range Interpretation Comments APTT Patient (test See_Comment H [Automat ed code = 3173-2) message] The system which generated this result transmitted reference range : 23 - 38 Seconds . The reference range was not used to interpr et this result as normal/abnormal . ALYSSA (test code = ALYSSA) The [facility] patient population mean normal value for aPTT is 30 seconds. Lab Interpretation Abnormal (test code = 24082-6) [facility] HospitalPOCT GLUCOSE (AUTOMATED)2020-01-17 11:59:00 Test Item Value Reference Range Interpretation Comments POCT GLU (test code = 4547071407) 185 mg/dL 70-110 H Lab Interpretation (test code = Abnormal 92844-8) [facility] HospitalTROPONIN [id number] 11:23:00 Test Item Value Reference Range Interpretation Comments TROPONIN I (test 0.073 ng/mL See_Comment H [Automated code = 2050729501) message] The system which generated this result [...] ? Lab Interpretation Abnormal (test code = 94576-4) [facility] (NA, K, CL, CO2, GLUCOSE, BUN, CREATININE, CA)2020-01-17 11:16:00 Test Item Value Reference Range Interpretation Comments NA (test code = 136 mmol/L 135-145 2396507356) K (test code = 3.3 mmol/L 3.5-5 L 8641326874) CL (test code = 101 mmol/L 98-108 5768707079) CO2 TOTAL (test code = 26 mmol/L 23-31 3020230148) AGAP (test code = 2-16 5882095053) BUN (test code = 19 mg/dL 7-23 4380439751) GLUCOSE (test code = 227 mg/dL 70-110 H 3713532523) CREATININE (test code = 1.33 mg/dL 0.6-1.25 H 8523834194) CALCIUM (test code = 9.1 mg/dL 8.6-10.6 6388661854) eGFR Calculation mL/min/1.73m2 (Non-) (test code = 5122414826) eGFR Calculation mL/min/1.73m2 () (test code = 7355071619) ALYSSA (test code = ALYSSA) Association of [...] tests). Lab Interpretation Abnormal (test code = 45368-2) [facility] HospitalaPTT2020-03-03 11:00:00 Test Item Value Reference Range Interpretation Comments APTT Patient (test See_Comment H [Automat ed code = 3173-2) message] The system which generated this result transmitted reference range : 23 - 38 Seconds . The reference range was not used to interpr et this result as normal/abnormal . ALYSSA (test code = ALYSSA) The [facility] patient population mean normal value for aPTT is 30 seconds. Lab Interpretation Abnormal (test code = 59992-9) [facility] HospitalCBC WITH [id number] 10:43:00 Test Item Value Reference Range Interpretation Comments WBC (test code = See_Comment [Automated message] 6690-2) The system Node1 generated this result transmitted ref erence range: 4.20 - 1 0.70 10*3/?L. The re ference range was not u sed to interpret this result as normal/abnor mal. RBC (test code = See_Comment [Automated message] 789-8) The system Node1 generated this result transmitted ref erence range: [...] RDW-SD (test code 41.5 fL 38.5-51.6 = 27380-6) RDW-CV (test code 12.8 % 12.1-15.4 = 788-0) PLT (test code = See_Comment [Automated message] 777-3) The system Node1 generated this result transmitted ref erence range: 150 - 32 8 10*3/?L. The re ference range was not u sed to interpret this result as normal/abnor mal. MPV (test code = 10.7 fL 9.8-13 64616-5) NRBC/100 WBC (test See_Comment [Automat ed message] code = 8984459189) The syste m which generated this result transmitted ref erence range: 0.0 - 10 .0 /100 WBCs. The refer ence range was not u sed to interpret this result as normal/abnor mal. NRBC x10^3 (test <0.01 See_Comment [Automated message] code = 3377816305) The syste m which generated this result transmitted ref erence range: 10*3/?L. The reference range was not used to interpr et this result as normal/abnormal . GRAN MAT (NEUT) % 56.1 % (test code = 770-8) IMM GRAN % (test 0.30 % code = 3857139598) LYMPH % (test code 29.5 % = 736-9) MONO % (test code 9.9 % = 5905-5) EOS % (test code = 3.3 % 713-8) BASO % (test code 0.9 % = 706-2) GRAN MAT 3.73 10*3/uL 1.99-6.95 x10^3(ANC) (test code = 6013122246) IMM GRAN x10^3 <0.03 0-0.06 (test code = 3538716257) LYMPH x10^3 (test 1.96 10*3/uL 1.09-3.23 code = 731-0) MONO x10^3 (test 0.66 10*3/uL 0.36-1.02 code = 742-7) EOS x10^3 (test 0.22 10*3/uL 0.06-0.53 code = 711-2) BASO x10^3 (test 0.06 10*3/uL 0.01-0.09 code = 704-7) [facility] GLUCOSE (AUTOMATED)2020-01-17 01:49:00 Test Item Value Reference Range Interpretation Comments POCT GLU (test code = 5583768418) 305 mg/dL 70-110 H Lab Interpretation (test code = Abnormal 96069-5) [facility] GLUCOSE (AUTOMATED)2020-01-17 00:01:00 Test Item Value Reference Range Interpretation Comments POCT GLU (test code = 2829261828) 271 mg/dL 70-110 H Lab Interpretation (test code = Abnormal 13149-5) [facility] HospitalaPTT2020-03-02 22:23:00 Test Item Value Reference Range Interpretation Comments APTT Patient (test See_Comment H [Automat ed code = 3173-2) message] The system which generated this result transmitted reference range : 23 - 38 Seconds . The reference range was not used to interpr et this result as normal/abnormal . ALYSSA (test code = ALYSSA) The [facility] patient population mean normal value for aPTT is 30 seconds. Lab Interpretation Abnormal (test code = 37247-7) [facility] HospitalTROPONIN [id number] 21:22:00 Test Item Value Reference Range Interpretation Comments TROPONIN I (test 0.061 ng/mL See_Comment H [Automated code = 0609949021) message] The system which generated this result [...] ? Lab Interpretation Abnormal (test code = 25144-5) [facility] HospitalPOCT GLUCOSE (AUTOMATED)2020-01-16 17:37:00 Test Item Value Reference Range Interpretation Comments POCT GLU (test code = 2187344782) 271 mg/dL 70-110 H Lab Interpretation (test code = Abnormal 00319-3) [facility] HospitalaPTT2020-03-02 12:47:00 Test Item Value Reference Range Interpretation Comments APTT Patient (test See_Comment HH [Automat ed code = 3173-2) message] The system which generated this result transmitted reference range : 23 - 38 Seconds . The reference range was not used to interpr et this result as normal/abnormal . ALYSSA (test code = ALYSSA) The [facility] patient population mean normal value for aPTT is 30 seconds. Lab Interpretation Abnormal (test code = 59828-7) [facility] HospitalTROPONIN [id number] 12:35:00 Test Item Value Reference Range Interpretation Comments TROPONIN I (test 0.074 ng/mL See_Comment H [Automated code = 3125158053) message] The system which generated this result [...] ? Lab Interpretation Abnormal (test code = 13681-2) [facility] HospitalLIPID PANEL (94819)(TOTAL CHOLESTEROL, TRIGLYCERIDES, HDL)2020-01-16 12:23:00 Test Item Value Reference Range Interpretation Comments CHOL (test code = 95 mg/dL 120-200 L 9362546799) HDL (test code = 44 mg/dL >40 0410759357) HDLC RATIO (test code = See_Comment [Au tomated message] 3926233989) The system Node1 generated this result transmitted ref erence range: <=5.0. T he reference range was not used to int erpret this result as normal/abnormal . TRIG (test code = 89 mg/dL 30-170 6790361642) LDL CHOL (test code = 33 mg/dL See_Comment [Auto mated message] 01191-2) The system Node1 generated this result transmitted ref erence range: <=160. T he reference range was not used to int erpret this result as normal/abnormal . VLDL (test code = 18 mg/dL 5-60 4038274678) Lab Interpretation (test Abnormal code = 79700-6) [facility] HospitalGlycosylated Hemoglobin (A1C)2020-01-16 09:03:00 Test Item Value Reference [...] Indicated Lab Interpretation Abnormal (test code = 35572-5) [facility] HospitalCritical [id number] 05:48:18NeCharanjit epps MD ? ? 01/15/2020 11:48 [...] old charts and examination of patientUnTexas Health [facility] SouthProthrombin Time (PT) / [id number] 05:28:00 Test Item Value Reference Range Interpretation [...] tions. Lab Interpretation (test Normal code = 66823-9) [facility] HospitalaPTT2020-03-02 05:27:00 Test Item Value Reference Range Interpretation Comments APTT Patient (test See_Comment [Automat ed code = 3173-2) message] The system which generated this result transmitted reference range : 23 - 38 Seconds . The reference range was not used to interpr et this result as normal/abnormal . ALYSSA (test code = ALYSSA) The [facility] patient population mean normal value for aPTT is 30 seconds. Lab Interpretation Normal (test code = 20716-6) [id number] 05:11:00 Test Item Value Reference Range Interpretation Comments TROPONIN I (test 0.075 ng/mL See_Comment H [Automated code = 3511744483) message] The system which generated this result [...] ? Lab Interpretation Abnormal (test code = 14910-6) [id number] 05:08:00 Test Item Value Reference Range Interpretation Comments NT-proBNP (test code 896 pg/mL See_Comment H [Autom ated = 5977872440) message] The system which generated this result transmitted reference range : <=450. The reference range was not used to interpret this result as normal/abnormal . ALYSSA (test code = ALYSSA) Biotin has been reported to cause a negative bias, interpret results relative to patient's use of biotin. Lab Interpretation Abnormal (test code = 11251-7) [facility] Metabolic Panel (NA, K, CL, CO2, GLUCOSE, BUN, CREATININE, CA)2020-01-16 04:59:00 Test Item Value Reference Range Interpretation Comments NA (test code = 136 mmol/L 135-145 9121040662) K (test code = 4.0 mmol/L 3.5-5 1789502752) CL (test code = 101 mmol/L 98-108 8000461672) CO2 TOTAL (test code = 27 mmol/L 23-31 2149487306) AGAP (test code = 2-16 4176781267) BUN (test code = 17 mg/dL 7-23 7915866253) GLUCOSE (test code = 445 mg/dL 70-110 H 8300985522) CREATININE (test code = 1.29 mg/dL 0.6-1.25 H 1371187734) CALCIUM (test code = 8.8 mg/dL 8.6-10.6 9122086903) eGFR Calculation mL/min/1.73m2 (Non-) (test code = 8708335267) eGFR Calculation mL/min/1.73m2 () (test code = 3889702445) ALYSSA (test code = ALYSSA) Association of [...] tests). Lab Interpretation Abnormal (test code = 25436-8) [facility] (ALB, T.PRO, BILI T, BU/BC, ALT, AST, ALK PHOS)2020-01-16 04:59:00 Test Item Value Reference Range Interpretation Comments TOTAL BILI (test code = 8823446437) 1.3 mg/dL 0.1-1.1 H BILI UNCON (test code = 5611395430) 1.1 mg/dL 0.1-1.1 BILI CONJ (test code = 3998532194) 0.0 mg/dL 0-0.3 T PROTEIN (test code = 9097723968) 6.3 g/dL 6.3-8.2 ALBUMIN (test code = 9228464477) 3.9 g/dL 3.5-5 ALK PHOS (test code = 7479348210) 67 U/L 34-122 ALTv (test code = 1742-6) 15 U/L 5-50 AST(SGOT) (test code = 1038795135) 23 U/L 13-40 Lab Interpretation (test code = Abnormal 45243-6) [facility] 1 [id number] 04:54:13Impression: Moderate cardiomegaly without acute pulmonary process. RL: 460 AFC: [id number] Indication: Chest pain Comparison: None available Findings: Single AP view of the chest. The cardiopericardial silhouette ismoderately enlarged. The lungs are clear bilaterally. The visualized bonythorax is intact. A thoracic neurostimulator device is in place. [facility], Radiant Results Inft User - 01/15/2020 10:55 PM CSTIndication: Chest painComparison: None availableFindings: Single AP view of the chest. The cardiopericardial silhouette ismoderately enlarged. The lungs are clear bilaterally. The visualized bonythorax is intact. A thoracic neurostimulator device is in place.IMPRESSIONImpression:Moderate cardiomegaly without acute pulmonary process.RL: 460AFC: [id number] signed by Esperanza Rosado MD, PhD at 01/15/2020 10:54 PMUnTexas [facility] SouthCBC WITH [id number] 04:51:00 Test Item Value Reference Range Interpretation [...] RDW-SD (test code = 40.7 fL 38.5-51.6 58250-2) RDW-CV (test code = 12.8 % 12.1-15.4 788-0) PLT (test code = See_Comment L [Automated 777-3) message] The sy stem which generated this result transmitted reference range : 150 - 328 10*3/ ?L. The reference r corey was not used to interpret this result as normal/abnormal . MPV (test code = 10.6 fL 9.8-13 07197-4) IPF % (test code = 2.8 % 1.2-10.7 Platelet count 9040816609) measured by fluorescence method. NRBC/100 WBC (test See_Comment [Automat ed code = 9743377213) message] The system which generated this result transmitted reference range : 0.0 - 10.0 /100 WBCs. The refer ence range was not u sed to interpret th is result as normal/abnormal . NRBC x10^3 (test code <0.01 See_Comment [Auto mated = 6443553989) message] The s ystem which generated this result transmitted reference range : 10*3/?L. The reference range was not used to interpret this result as normal/abnormal . GRAN MAT (NEUT) % 56.0 % (test code = 770-8) IMM GRAN % (test code 0.20 % = 2874217092) LYMPH % (test code = 30.5 % 736-9) MONO % (test code = 9.6 % 5905-5) EOS % (test code = 2.8 % 713-8) BASO % (test code = 0.9 % 706-2) GRAN MAT x10^3(ANC) 2.98 10*3/uL 1.99-6.95 (test code = 9009834585) IMM GRAN x10^3 (test <0.03 0-0.06 code = 9797705243) LYMPH x10^3 (test code 1.62 10*3/uL 1.09-3.23 = 731-0) MONO x10^3 (test code 0.51 10*3/uL 0.36-1.02 = 742-7) EOS x10^3 (test code = 0.15 10*3/uL 0.06-0.53 711-2) BASO x10^3 (test code 0.05 10*3/uL 0.01-0.09 = 704-7) Lab Interpretation Abnormal (test code = 23074-6) [facility]"
[2021-11-30 00:39] LABS: Absolute Lymphocytes (CBC) 1.5 K/uL (0.7-4.9); Hematocrit 33.1 % (39.6-49.0); Lymphocytes % 21.5 % (15.3-44.8); MPV 7.6 fL (7.6-11.3); RBC Red Blood Cell Count 3.52 M/uL (4.33-5.43)
[2021-11-30 00:56] LABS: Albumin 3.2 g/dL (3.4-5.0); Bilirubin Direct 0.2 mg/dL (0-0.2); Bilirubin Total 0.7 mg/dL (0.2-1.0); Magnesium 2.3 mg/dL (1.8-2.4); Potassium 4.3 mmol/L (3.5-5.1); Protein, Total 7.1 g/dL (6.4-8.2); Troponin High Sensitivity 32.6 pg/mL (<58.9)
[2021-11-30 01:28] LABS: Protime INR 1.03
[2021-11-30] MEDS ORDERED: ONDANSETRON 4 MG/2 ML VIAL ONE (02:10)
[2021-11-30] MEDS ORDERED: MORPHINE 4 MG/ML SYR ONE (02:10)
[2021-11-30 03:13] LABS: Urine Blood Trace-intact (Negative); Urine Glucose Negative (Negative); Urine Protein Trace (Negative); Urine Specific Gravity >=1.030 (1.005-1.030); Urine pH 6.5 (5.0-7.0)
--- NOTE | 2021-11-30 03:24 | EDPHYS ---
Physician Documentation [facility] Name: Demetrius Sarmiento Age: 81 yrs Sex: Male : 1940 Arrival Date: 11/29/2021 Time: 23:57 Bed 3 Private MD: ED Physician Brett Lema HPI: 11/30 00:35 This 81 yrs old Male presents to ER via EMS with complaints of Back Pain, Chest Pain. cp 00:35 The patient presents with pain that is acute, with no known mechanism of injury. The cp symptoms are located in the low back. 00:35 The patient or guardian reports chest pain that is located primarily in the anterior cp chest wall, left. 00:35 Onset: 3 day(s) ago, intermittent. Associated signs and symptoms: Pertinent negatives: cp abdominal pain, constipation, fever, incontinence, numbness, weakness. Historical: - Home Meds: 00:06 aspirin 81 mg Oral TbEC 1 tab once daily [Active]; atorvastatin 40 mg Oral tab 1 tab ld1 nightly [Active]; donepezil 5 mg Oral tab 1 tab nightly [Active]; furosemide 20 mg Oral tab 1 tab once daily [Active]; isosorbide mononitrate 60 mg Oral Tb24 1.5 tabs once daily [Active]; isosorbide mononitrate 120 mg Oral Tb24 1 tab once daily [Active]; Januvia 50 mg Oral tab 1 tab once daily [Active]; lisinopril 5 mg Oral tab 1 tab once daily [Active]; potassium chloride 10 mEq Oral TbER 1 tab once daily [Active]; - PMHx: 00:06 cardiac arrest; CAD; CHF; chronic kidney disease; Chronic pain; Diabetes - IDDM; High ld1 Cholesterol; Hypertension; Myocardial infarction; - PSHx: 00:06 None; ld1 - Immunization history:: Adult Immunizations up to date, Client reports receiving the 2nd dose of the Covid vaccine. - Social history:: Smoking status: Patient denies any tobacco usage or history of. Patient/guardian denies using alcohol. ROS: 00:40 Cardiovascular: Positive for chest pain, of the left side of chest. cp 00:40 Constitutional: Negative for body aches, chills, fever, poor PO intake. cp 00:40 Eyes: Negative for injury, pain, redness, and discharge. cp 00:40 ENT: Negative for drainage from ear(s), ear pain, sore throat, difficulty swallowing, difficulty handling secretions. 00:40 Respiratory: Negative for cough, shortness of breath, wheezing. 00:40 Abdomen/GI: Negative for abdominal pain, nausea, vomiting, and diarrhea. 00:40 Back: Positive for pain at rest, of the low back area. 00:40 : Negative for urinary symptoms, testicular pain 00:40 Neuro: Negative for altered mental status, dizziness, headache, syncope, weakness. 00:40 All other systems are negative. Exam: 11/29 23:52 ECG was reviewed by the Attending Physician. cp 11/30 00:45 Constitutional: The patient appears in no acute distress, alert, awake, cp non-diaphoretic, non-toxic, well developed, well nourished. 00:45 Head/Face: Normocephalic, atraumatic. cp 00:45 Eyes: Periorbital structures: appear normal, Conjunctiva: normal, no exudate, no injection, Sclera: no appreciated abnormality, Lids and lashes: appear normal, bilaterally. 00:45 ENT: External ear(s): are unremarkable, Nose: is normal, Mouth: Lips: moist, Oral mucosa: moist, Posterior pharynx: Airway: no evidence of obstruction, patent. 00:45 Neck: ROM/movement: is normal, is supple, without pain, no range of motions limitations. 00:45 Chest/axilla: Inspection: normal, Palpation: is normal, no crepitus, no tenderness. 00:45 Cardiovascular: Rate: normal, Rhythm: regular, Pulses: Pulses are 2+ in right radial artery and left radial artery. Edema: is not appreciated, JVD: is not appreciated. 00:45 Respiratory: the patient does not display signs of respiratory distress, Respirations: normal, no use of accessory muscles, no retractions, labored breathing, is not present, Breath sounds: are clear throughout, no decreased breath sounds, no stridor, no wheezing. 00:45 Abdomen/GI: Inspection: abdomen appears normal, Bowel sounds: active, all quadrants, Palpation: abdomen is soft and non-tender, in all quadrants. 00:45 Back: pain, that is moderate, of the low back area, ROM is painful, with all movement, Straight leg raises: of both lower extremities does not illicit pain. 00:45 Neuro: Orientation: to person, place \\T\\ time. Mentation: is normal, Motor: moves all fours, strength is normal, Sensation: is normal. Vital Signs: 00:06 BP 139 / 76; Pulse 60; Resp 18; Temp 98.6(O); Pulse Ox 100% on R/A; Weight 79.38 kg; ld1 Height 5 ft. 7 in. (170.18 cm); 03:26 BP 93 / 76; Pulse 65; Resp 17 S; Pulse Ox 99% on R/A; Pain 2/10; lg3 05:41 BP 104 / 82; Pulse 56; Resp 7 S; Pulse Ox 99% on R/A; lg3 00:06 Body Mass Index 27.41 (79.38 kg, 170.18 cm) ld1 MDM: 00:36 Patient medically screened. cp 01:00 Differential diagnosis: gastroesophageal reflux disease (GERD), pancreatitis, cp pericarditis, pleurisy, pneumonia, pneumothorax, stable angina, unstable angina. 03:15 Physician consultation: Lobito GALVEZ was contacted at 03:30, regarding admission, to the telemetry unit. patient's condition. 03:45 Data reviewed: vital signs, nurses notes, lab test result(s), EKG, radiologic studies, cp CT scan, plain films, I have discussed the patient's presentation/case with the attending Emergency Department Physician; and as a result, I will admit patient. 03:45 Test interpretation: by ED physician or midlevel provider: ECG, plain radiologic cp studies. 11/30 00:19 Order name: Basic Metabolic Panel cp 11/30 00:19 Order name: CBC with Diff; Complete Time: 54 cp 11/30 01:54 Interpretation: Normal except: RBC 3.52; HGB 11.2; HCT 33.1. cp 11/30 00:19 Order name: LFT's; Complete Time: 54 cp 11/30 00:19 Order name: Magnesium; Complete Time: 54 cp 11/30 00:19 Order name: NT PRO-BNP; Complete Time: :54 cp 11/30 00:19 Order name: PT-INR; Complete Time: 03:41 cp 11/30 00:19 Order name: Troponin HS; Complete Time: :54 cp 11/30 00:19 Order name: XRAY Chest (1 view) cp 11/30 00:20 Order name: Basic Metabolic Panel; Complete Time: 01:54 EDKY 11/30 01:54 Interpretation: Normal except: GLUC 155; BUN 23; CRE 1.65; GFR 40. cp 11/30 01:56 Order name: Urine Microscopic Only cp 11/30 01:57 Order name: Urine Microscopic Only; Complete Time: 03:41 EDKY 11/30 03:12 Order name: Urine Dipstick-Ancillary; Complete Time: 03:41 EDKY 11/30 03:29 Order name: Urine Culture EDKY 11/30 03:41 Order name: COVID-19 SARS RT PCR (Document "Date of Onset" if Symptomatic) 11/30 00:19 Order name: EKG; Complete Time: 00:20 11/30 00:19 Order name: Cardiac monitoring; Complete Time: 00:25 11/30 00:19 Order name: EKG - Nurse/Tech; Complete Time: 00:25 11/30 00:19 Order name: IV Saline Lock; Complete Time: 00:25 11/30 00:19 Order name: Labs collected and sent; Complete Time: 00:25 11/30 00:19 Order name: O2 Per Protocol; Complete Time: 00:25 11/30 00:19 Order name: O2 Sat Monitoring; Complete Time: 00:25 11/30 01:56 Order name: Urine Dipstick-Ancillary (obtain specimen); Complete Time: 03:10 11/30 02:06 Order name: CT Stone Protocol 11/30 03:52 Order name: CONS Physician Consult EDKY EC/14 23:52 Rate is 74 beats/min. Rhythm is regular. CA interval is normal. QRS interval is normal. cp QT interval is normal. T waves are Inverted in leads I, aVL. Interpreted by me. Reviewed by me. Administered Medications: 11/30 02:12 Drug: Zofran (Ondansetron) 4 mg Route: IVP; Site: right hand; lg3 02:13 Follow up: Response: No adverse reaction lg3 02:49 Follow up: Response: No adverse reaction rene 02:13 Drug: morphine 4 mg Route: IVP; Site: right hand; lg3 02:13 Follow up: Response: No adverse reaction lg3 02:49 Follow up: Response: No adverse reaction rene 04:08 Drug: Rocephin - (cefTRIAXone) 1 grams Route: IVPB; Infused Over: 30 mins; Site: right lg3 hand; 04:23 Follow up: Response: No adverse reaction; IV Status: Completed infusion; IV Intake: 64alcf2 Disposition: 20:43 Co-signature as Attending Physician, Brett Lema MD. mh7 Disposition Summary: 11/30/21 03:24 Hospitalization Ordered Hospitalization Status: Observation cp Provider: uSkhwinder Mcclendon cp Condition: Stable cp Problem: new cp Symptoms: have improved cp Bed/Room Type: Standard cp Location: Telemetry/MedSurg (Inpatient)(11/30/21 05:54) mw Room Assignment: 220(11/30/21 05:54) mw Diagnosis - Angina pectoris, unspecified cp - Low back pain cp - UTI/ Urinary tract infection, site not specified cp Forms: - Medication Reconciliation Form cp - SBAR form cp Signatures: Dispatcher [employer] EDMS Mary Arceo RN RN Michael Sadler PA PA cp Lexi Herring RN RN lg3 Brett Lema MD MD mh7 Danica Mckeon RN RN ld1 Regina Walden RN Corrections: (The following items were deleted from the chart) 04:27 03:24 Telemetry/MedSurg (observation) cp mw 04:27 03:24 cp mw 05:54 04:27 [facility] ER HOLD mw mw 05:54 04:27 ERHOLD- mw mw
--- NOTE | 2021-11-30 03:24 | ER ---
Nurse's Notes [facility] Name: Demetrius Sarmiento Age: 81 yrs Sex: Male : 1940 Arrival Date: 11/29/2021 Time: 23:57 Bed 3 Private MD: Diagnosis: Angina pectoris, unspecified;Low back pain;UTI/ Urinary tract infection, site not specified Presentation: 11/30 00:05 Chief complaint: EMS states: Toned out for chest pain. Pt states chest pain began ld1 today. EMS stated patient recently had heart stents placed. Upon arrival to ER pt was clenching chest and c/o pain. Coronavirus screen: At this time, the client does not indicate any symptoms associated with coronavirus-19. Ebola Screen: No symptoms or risks identified at this time. Initial Sepsis Screen: Does the patient meet any 2 criteria? No. Patient's initial sepsis screen is negative. Does the patient have a suspected source of infection? No. Patient's initial sepsis screen is negative. Risk Assessment: Do you want to hurt yourself or someone else? Patient reports no desire to harm self or others. Onset of symptoms was November 30, 2021. 00:05 Method Of Arrival: EMS: [facility] ld1 00:05 Acuity: LANCE 3 ld1 Triage Assessment: 00:06 General: Appears in no apparent distress. comfortable, Behavior is calm, cooperative, ld1 appropriate for age. Pain: Complains of pain in chest Pain does not radiate. Pain currently is 8 out of 10 on a pain scale. Quality of pain is described as throbbing, Pain began suddenly, Is continuous. Neuro: Level of Consciousness is awake, alert, obeys commands, Oriented to person, place, time, situation. Respiratory: Airway is patent Respiratory effort is even, unlabored, Respiratory pattern is regular, symmetrical. Musculoskeletal: No signs and/or symptoms reported regarding the musculoskeletal system. Historical: - Home Meds: 00:06 aspirin 81 mg Oral TbEC 1 tab once daily [Active]; atorvastatin 40 mg Oral tab 1 tab ld1 nightly [Active]; donepezil 5 mg Oral tab 1 tab nightly [Active]; furosemide 20 mg Oral tab 1 tab once daily [Active]; isosorbide mononitrate 60 mg Oral Tb24 1.5 tabs once daily [Active]; isosorbide mononitrate 120 mg Oral Tb24 1 tab once daily [Active]; Januvia 50 mg Oral tab 1 tab once daily [Active]; lisinopril 5 mg Oral tab 1 tab once daily [Active]; potassium chloride 10 mEq Oral TbER 1 tab once daily [Active]; - PMHx: 00:06 cardiac arrest; CAD; CHF; chronic kidney disease; Chronic pain; Diabetes - IDDM; High ld1 Cholesterol; Hypertension; Myocardial infarction; - PSHx: 00:06 None; ld1 - Immunization history:: Adult Immunizations up to date, Client reports receiving the 2nd dose of the Covid vaccine. - Social history:: Smoking status: Patient denies any tobacco usage or history of. Patient/guardian denies using alcohol. Screenin:19 Abuse screen: Denies threats or abuse. Nutritional screening: No deficits noted. lg3 Tuberculosis screening: No symptoms or risk factors identified. Fall Risk Secondary diagnosis (15 points) impaired mobility, IV access (20 points). Gait- Weak (10 pts.). Assessment: 00:20 General: Appears in no apparent distress. comfortable, Behavior is calm, cooperative. lg3 Pain: Denies pain. Neuro: Level of Consciousness is awake, alert, obeys commands, Oriented to person, place, time, situation, Moves all extremities. Gait is unsteady, Speech is normal, Facial symmetry appears normal. Cardiovascular: Reports chest pain, since 3 days. denies pain now. Capillary refill < 3 seconds JVD is absent Patient's skin is warm and dry. Rhythm is sinus rhythm. Cardiovascular: Parent/caregiver reports patient has had stents placed 2 wks ago. Respiratory: Airway is patent Trachea midline Respiratory effort is even, unlabored, Respiratory pattern is regular, symmetrical. GI: No deficits noted. No signs and/or symptoms were reported involving the gastrointestinal system. Abdomen is round non-distended. : No deficits noted. No signs and/or symptoms were reported regarding the genitourinary system. EENT: No deficits noted. No signs and/or symptoms were reported regarding the EENT system. Derm: No deficits noted. No signs and/or symptoms reported regarding the dermatologic system. Skin is intact, is thin, Skin is dry. Musculoskeletal: No deficits noted. No signs and/or symptoms reported regarding the musculoskeletal system. Circulation, motion, and sensation intact. Range of motion: intact in all extremities. 03:25 Reassessment: Patient appears in no apparent distress at this time. No changes from lg3 previously documented assessment. Patient and/or family updated on plan of care and expected duration. Pain level reassessed. Patient is alert, oriented x 3, equal unlabored respirations, skin warm/dry/pink. Patient states feeling better. Patient states symptoms have improved. Neuro: Level of Consciousness is awake, alert, obeys commands, Oriented to person, place, time, situation. Respiratory: No deficits noted. Airway is patent Respiratory effort is even, unlabored, Respiratory pattern is regular, symmetrical. 05:43 Reassessment: Patient appears in no apparent distress at this time. No changes from lg3 previously documented assessment. Patient and/or family updated on plan of care and expected duration. Pain level reassessed. Patient is alert, oriented x 3, equal unlabored respirations, skin warm/dry/pink. Vital Signs: 00:06 BP 139 / 76; Pulse 60; Resp 18; Temp 98.6(O); Pulse Ox 100% on R/A; Weight 79.38 kg; ld1 Height 5 ft. 7 in. (170.18 cm); 03:26 BP 93 / 76; Pulse 65; Resp 17 S; Pulse Ox 99% on R/A; Pain 2/10; lg3 05:41 BP 104 / 82; Pulse 56; Resp 7 S; Pulse Ox 99% on R/A; lg3 00:06 Body Mass Index 27.41 (79.38 kg, 170.18 cm) ld1 ED Course: 11/29 23:57 Patient arrived in ED. 11/30 00:06 Triage completed. ld1 00:06 Arm band placed on right wrist. ld1 00:16 Lexi Herring, RN is Primary Nurse. lg3 00:19 Patient has correct armband on for positive identification. Placed in gown. Bed in low lg3 position. Call light in reach. Side rails up X 1. monitoring manager on. Pulse ox on. NIBP on. 00:20 Michael Vizcarra PA is PHCP. cp 00:20 Brett Lema MD is Attending Physician. cp 00:25 Basic Metabolic Panel Sent. lg3 00:25 CBC with Diff Sent. lg3 00:25 LFT's Sent. lg3 00:26 Magnesium Sent. lg3 00:26 NT PRO-BNP Sent. lg3 00:26 PT-INR Sent. lg3 00:26 Troponin HS Sent. lg3 00:26 Basic Metabolic Panel Sent. lg3 00:38 XRAY Chest (1 view) In Process Unspecified. EDMS 02:47 CT Stone Protocol In Process Unspecified. EDMS 03:10 Urine Microscopic Only Sent. rene 03:10 Urine Microscopic Only Sent. rene 03:23 Sukhwidner Mcclendon is Hospitalizing Provider. cp 03:25 No provider procedures requiring assistance completed. lg3 08:40 Patient admitted, IV remains in place. jg9 Administered Medications: 02:12 Drug: Zofran (Ondansetron) 4 mg Route: IVP; Site: right hand; lg3 02:13 Follow up: Response: No adverse reaction lg3 02:49 Follow up: Response: No adverse reaction rene 02:13 Drug: morphine 4 mg Route: IVP; Site: right hand; lg3 02:13 Follow up: Response: No adverse reaction lg3 02:49 Follow up: Response: No adverse reaction rene 04:08 Drug: Rocephin - (cefTRIAXone) 1 grams Route: IVPB; Infused Over: 30 mins; Site: right lg3 hand; 04:23 Follow up: Response: No adverse reaction; IV Status: Completed infusion; IV Intake: 96ubnf1 Intake: 04:23 IV: 50ml; Total: 50ml. lg3 Outcome: 03:24 Decision to Hospitalize by Provider. cp 08:40 Admitted to Med/surg accompanied by nurse, via wheelchair, Report called to ann Hnaley RN 08:40 Condition: stable 08:40 Patient left the ED. jg9 Signatures: Dispatcher [employer] EDMS Michael Vizcarra PA PA cp Gibson, Lacie, RN RN lg3 Danica Mckeon, RN RN [id number] Christin Garcia Jennifer, RN RN jg9 Regina Walden RN RN bo
[2021-11-30 03:27] LABS: Urine Bacteria 20-50 /HPF (NONE SEEN); Urine Mucus 2+ /HPF (NONE SEEN)
[2021-11-30] MEDS ORDERED: NA CHLORIDE 0.9% 50 ML ONE (04:00)
[2021-11-30] MEDS ORDERED: CEFTRIAXONE 1000 MG/VIAL ONE (04:00)
--- NOTE | 2021-11-30 04:31 | P.HP ---
Certification for Inpatient Patient admitted to: Observation With expected LOS: <2 Midnights Patient will require the following post-hospital care: None Practitioner: I am a practitioner with admitting privileges, knowledge of patient current condition, hospital course, and medical plan of care. Services: Services provided to patient in accordance with Admission requirements found in Title 42 Section 412.3 of the Code of Federal Regulations Patient History Date of Service: 11/30/21 Reason for admission: chest pain History of Present Illness: Mr. Sarmiento is an 81 yo M with CAD, CHF, CKD, T2DM, HTN, HLD who presents with 5/10 left sided intermittent chest pain over the past 3 days. He says it occurs at rest and usually is worse at night. He had 4 cardiac stents placed in the past, and 2 more stents placed approximately 1 month ago. He also reports chronic back pain and uses lidocaine patches at home. BUN 23 Cr 1.65 GFR 40 Glu 155 BNP 745 initial troponin within normal limits. sinus bradycardia on telemetry. Pain free at this time. Allergies No Known Allergies Allergy (Verified 03/10/20 01:08) Home Medications: Atorvastatin Calcium 1 tab PO BEDTIME 03/10/20 Insulin Glargine Human [Lantus*] 10 unit SQ BEDTIME 03/10/20 Donepezil HCl [Aricept] 5 mg PO DAILY AT SUPPER 03/17/20 Furosemide [Lasix*] 20 mg PO DAILY AT SUPPER 03/17/20 Isosorbide Mononitrate [Isosorbide Mononitrate ER] 1.5 tab PO DAILY 09/24/20 Lisinopril [Zestril] 5 mg PO DAILY 09/24/20 Sitagliptin Phosphate [Januvia*] 50 mg PO DAILY 09/24/20 Aspirin 1 tab PO DAILY #30 tab.chew 10/29/21 Clopidogrel Bisulfate [Plavix*] 75 mg PO DAILY #30 tablet 10/29/21 Metoprolol Tartrate [Lopressor*] 12.5 mg PO BID 6AM 6PM #60 tab 10/29/21 - Past Medical/Surgical History Diabetic: Yes -: CHFunknown EF -: HTN -: DM IDDM -: Heart Stents -: Solitary kidney -: Chronic renal failure -: CAD -: stents Psychosocial/ Personal History: Patient is , lives at home alone - Family History Father -: Heart disease Notes: [place] - Social History Smoking Status: Unknown if ever smoked Alcohol use: No CD- Drugs: No Caffeine use: Yes Place of Residence: Home Review of Systems 10-point ROS is otherwise unremarkable Cardiovascular: Chest Pain Musculoskeletal: Back Pain Physical Examination - Physical Exam General: Alert, In no apparent distress HEENT: Atraumatic, PERRLA, Mucous membr. moist/pink, EOMI, Sclerae nonicteric Neck: Supple, 2+ carotid pulse no bruit, No LAD, Without JVD or thyroid abnormality Respiratory: Clear to auscultation bilaterally, Normal air movement Cardiovascular: Regular rate/rhythm, Normal S1 S2 Gastrointestinal: Normal bowel sounds, No tenderness Musculoskeletal: No tenderness Integumentary: No rashes Neurological: Normal speech, Normal strength at 5/5 x4 extr, Normal tone, Normal affect Lymphatics: No axilla or inguinal lymphadenopathy - Studies Laboratory Data (last 24 hrs) 11/30/21 01:15: PT 11.9, INR 1.03 11/30/21 00:24: WBC 6.80, Hgb 11.2 L, Hct 33.1 L, Plt Count 191 11/30/21 00:24: Sodium 140, Potassium 4.3, BUN 23 H, Creatinine 1.65 H, Glucose 155 H, Magnesium 2.3 D, Total Bilirubin 0.7, AST 12 L, ALT 17, Alkaline Phosphatase 54 Assessment and Plan - Problems (Diagnosis) (1) CHF (congestive heart failure) Current Visit: Yes Status: Chronic Qualifiers: Heart failure type: unspecified Heart failure chronicity: chronic Qualified Code(s): I50.9 - Heart failure, unspecified (2) HLD (hyperlipidemia) Current Visit: Yes Status: Chronic Qualifiers: Hyperlipidemia type: unspecified Qualified Code(s): E78.5 - Hyperlipidemia, unspecified (3) HTN (hypertension) Current Visit: Yes Status: Chronic Qualifiers: Hypertension type: primary hypertension Qualified Code(s): I10 - Essential (primary) hypertension (4) Chronic back pain Current Visit: Yes Status: Chronic Qualifiers: Back pain location: low back pain Back pain laterality: unspecified Sciatica presence: unspecified whether sciatica present Qualified Code(s): M54.50 - Low back pain, unspecified; G89.29 - Other chronic pain (5) Chest pain Current Visit: No Status: Acute Qualifiers: Chest pain type: unspecified Qualified Code(s): R07.9 - Chest pain, unspecified (6) Chronic kidney disease, stage 3 Current Visit: No Status: Chronic Qualifiers: Chronic kidney disease stage 3 subtype: stage 3b (GFR 30-44) Qualified Code(s): N18.32 - Chronic kidney disease, stage 3b (7) Coronary artery disease Current Visit: No Status: Chronic Qualifiers: Coronary Disease-Associated Artery/Lesion type: [place] artery [place] vs. transplanted heart: [place] heart Associated angina: with unspecified form of angina Qualified Code(s): I25.119 - Atherosclerotic heart disease of [place] coronary artery with unspecified angina pectoris (8) Diabetes mellitus type 2 in nonobese Current Visit: No Status: Chronic (9) Solitary kidney Current Visit: No Status: Chronic - Plan cardiology consulted on telemetry, trend troponins, repeat EKG reconcile and continue home cardiac medications lipid and thyroid panel pending morphine and nitroglycerin as needed for chest pain relief DVT ppx Discharge Plan: Home Plan to discharge in: 24 Hours - Advance Directives Does patient have a Living Will: No Does patient have a Durable POA for Healthcare: Yes - Code Status/Comfort Care Code Status Assessed: Yes ( ) Critical Care: No Time Spent Managing Pts Care (In Minutes): 70
--- NOTE | 2021-11-30 08:06 | RAD REPORT ---
EXAM DESCRIPTION: RAD - Chest Single View - 11/30/2021 12:38 am CLINICAL HISTORY: CHEST PAIN COMPARISON: Chest Single View dated 10/27/2021; Chest Single View dated 10/25/2021; Chest Pa And Lat (2 Views) dated 08/20/2021; Chest Single View dated 04/24/2021 FINDINGS: Lines: None. Lungs: No evidence of edema or pneumonia. Pleural: No significant pleural effusions or pneumothorax. Cardiac: The heart size is within normal limits. Bones: No acute fractures. Other: IMPRESSION: No acute cardiopulmonary disease.
[2021-11-30] MEDS ORDERED: ONDANSETRON 4 MG/2 ML VIAL IV PRN (08:14)
[2021-11-30] MEDS: METOPROLOL TAR 25 MG TAB PO SCH ×2 (08:14→17:01)
[2021-11-30] MEDS ORDERED: ACETAMINOPHEN 500 MG TAB PO PRN (08:14)
[2021-11-30] MEDS ORDERED: NITROGLYCERIN 0.4 MG/TAB SL PRN (08:14)
[2021-11-30] MEDS: INSULIN -REGULAR HUMAN 50 UNIT/0.5 ML ML SQ SCH ×4 (08:14→21:00)
[2021-11-30 10:15] LABS: Magnesium 2.8 mg/dL (1.8-2.4); Phosphorus 3.8 mg/dL (2.5-4.9); Troponin High Sensitivity 36.3 pg/mL (<58.9)
[2021-11-30 10:17] LABS: Thyroid Stimulating Hormone 4.26 uIU/mL (0.360-3.740)
[2021-11-30] MEDS: ISOSORBIDE MONO SR 30 MG TAB PO SCH (10:22)
[2021-11-30] MEDS: lisinopriL 5 MG TAB PO SCH (10:22)
[2021-11-30] MEDS: CLOPIDOGREL 75 MG TABLET PO SCH (10:22)
[2021-11-30] MEDS: ENOXAPARIN 40 MG/0.4 ML SQ SCH (10:22)
[2021-11-30] MEDS: ASPIRIN 81 MG CHEWABLE TABLET PO SCH (10:23)
--- NOTE | 2021-11-30 16:20 | CON ---
Date of Consultation: 11/30/2021 Reason For Consultation: Chest pain. History Of Present Illness: This is an 81-year-old male with history of coronary artery disease, CHF , chronic kidney disease, diabetes, hypertension, dyslipidemia, recent cardiac stents placed in the L AD, presented with chest pain. The patient had residual RCA coronary artery disease that required st ents which was planned to be staged. However, the patient comes in with chest pain, retrosternal, ra diates to left upper extremity, related to exertion. Past Medical History: As outlined above in the HPI. Medications: Refer reconciliation sheet for detailed list. Allergies: NO KNOWN DRUG ALLERGIES. Family History: No mature coronary artery disease or cancer. Social History: He does not smoke or drink. Does not use any drugs. Review of Systems: All systems reviewed and they were negative except for mentioned in HPI. Physical Examination: Vital Signs: Reviewed. Head and Neck: Pupils are equal, reactive to light. Intact eye movements. No JVD. No cervical lym phadenopathy. Neck: Supple. Thyroid is not enlarged. Lungs: Clear to auscultation bilaterally. No rhonchi, rales, or crackles. No accessory muscle use. Heart: Regular rate and rhythm. No extra sounds. Abdomen: Soft, nontender. Bowel sounds positive. No organomegaly. No masses or hernia. No rigidi ty or rebound Extremities: No edema, clubbing, cyanosis. Intact pulses. Skin: No rashes. Neurologic: Alert, awake, oriented x3. No acute focal deficits appreciated. Investigations: White blood cell count 6.8, hemoglobin 11.2. Sodium 140, BUN 23, creatinine 1.65. Troponins are negative x3. Assessment And Recommendation: 1.Chest pain. Known history of coronary artery disease. Has residual RCA stenosis. Monitor for e next 24 hours. If the patient continues to be chest pain free, he can be released and plan a PCI o f the RCA as an outpatient. However, if he continues to have chest pain associated with activities t hen plan for PCI of the RCA along with coronary angiogram on Thursday. In the interim, continue aspiri n, Plavix, and nitroglycerin as needed. 2.Hypertension. Blood pressure is controlled. 3.Dyslipidemia. Continue atorvastatin. SR/MODL Voice ID: [id number] Report ID: [id number]
[2021-11-30] MEDS ORDERED: FUROSEMIDE 20 MG TABLET PO SCH (17:00)
--- NOTE | 2021-11-30 17:05 | P.PN ---
Date of Service: 11/30/21 Patient seen and examined. He denies any chest pain at the moment. Troponin trended negative. Cardiology seen and evaluated patient. Patient may need cardiac catheterization on Thursday per cardiology. Continue CAD medications.
[2021-11-30] MEDS: ATORVASTATIN 40 MG TAB PO SCH (21:05)
[2021-11-30] MEDS: MORPHINE 2 MG/ML SYR IV PRN (22:30)
[2021-12-01] MEDS ORDERED: CEFTRIAXONE 1,000 MG in NA CHLORIDE 0.9% 50 ML IVPB SCH ×2 (04:00→09:00)
[2021-12-01] MEDS: METOPROLOL TAR 25 MG TAB PO SCH ×2 (05:23→18:25)
[2021-12-01] MEDS: INSULIN -REGULAR HUMAN 50 UNIT/0.5 ML ML SQ SCH ×4 (07:30→20:32)
[2021-12-01] MEDS: ASPIRIN 81 MG CHEWABLE TABLET PO SCH (10:36)
[2021-12-01] MEDS: ENOXAPARIN 40 MG/0.4 ML SQ SCH (10:37)
[2021-12-01] MEDS: ISOSORBIDE MONO SR 30 MG TAB PO SCH (10:38)
[2021-12-01] MEDS: lisinopriL 5 MG TAB PO SCH (10:38)
[2021-12-01] MEDS: CLOPIDOGREL 75 MG TABLET PO SCH (10:39)
[2021-12-01] MEDS: MORPHINE 2 MG/ML SYR IV PRN ×2 (11:36→20:22)
[2021-12-01] MEDS ORDERED: QUETIAPINE 25 MG TAB PO PRN (13:12)
[2021-12-01] MEDS ORDERED: LIDOCAINE 4% PATCH TOP PRN (13:12)
[2021-12-01] MEDS ORDERED: TRAZODONE 50 MG TABLET PO PRN (13:12)
--- NOTE | 2021-12-01 13:12 | P.PN ---
Subjective Date of Service: 12/01/21 Chief Complaint: chest pain Patient has no new complaints. He denies any chest pain. Troponin trended negative. Physical Examination - Vital Signs Temperature: 97.6 F Blood Pressure: 159/84 Pulse: 74 Respirations: 18 Pulse Ox (%): 98 - Physical Exam General: Alert, In no apparent distress HEENT: Mucous membr. moist/pink Neck: JVD not distended Respiratory: Clear to auscultation bilaterally, Normal air movement Cardiovascular: Regular rate/rhythm, Normal S1 S2 Gastrointestinal: Soft and benign, Non-distended Musculoskeletal: No swelling Integumentary: No rashes Neurological: Normal strength at 5/5 x4 extr Assessment And Plan - Current Problems (Diagnosis) (1) UTI (urinary tract infection) Current Visit: Yes Status: Acute (2) HLD (hyperlipidemia) Current Visit: Yes Status: Chronic Qualifiers: Hyperlipidemia type: unspecified Qualified Code(s): E78.5 - Hyperlipidemia, unspecified (3) HTN (hypertension) Current Visit: Yes Status: Chronic Qualifiers: Hypertension type: primary hypertension Qualified Code(s): I10 - Essential (primary) hypertension (4) Chest pain Current Visit: No Status: Acute Qualifiers: Chest pain type: unspecified Qualified Code(s): R07.9 - Chest pain, unspe cified (5) Coronary angioplasty status Current Visit: No Status: Acute (6) Coronary artery disease Current Visit: No Status: Chronic Qualifiers: Coronary Disease-Associated Artery/Lesion type: [place] artery [place] vs. transplanted heart: [place] heart Associated angina: with unspecified form of angina Qualified Code(s): I25.119 - Atherosclerotic heart disease of [place] coronary artery with unspecified angina pectoris (7) Diabetes mellitus type 2 in nonobese Current Visit: No Status: Chronic - Plan Clinically stable. Cardiology input appreciated. Continue aspirin and Plavix and metoprolol. Continue Isosorbide. Case discussed with Dr. Baldwin who is considering cardiac catheterization tomorrow. LDL is below target. Continue Lipitor UA suggest UTI, urine culture showed mixed growth. Continue antibiotics. Planning 5 days of antibiotic treatment for UTI.
[2021-12-01] MEDS ORDERED: levoFLOXacin 750 MG TAB PO SCH (14:00)
--- NOTE | 2021-12-01 19:57 | PN ---
Date of Progress Note: 12/01/2021 Subjective: Seen by bedside. No further chest pain. No nausea, vomiting, or diarrhea. No history of urinary urgency. All other systems reviewed were negative. Physical Examination: Vital Signs: Reviewed. Head: Pupils are equal, reactive to light. Intact eye movements. No JVD. No cervical lymphadenopa thy. Neck: Supple. Thyroid is not enlarged. Lungs: Clear to auscultation bilaterally. No rhonchi, rales, or crackles. No accessory muscle use. Heart: Regular rate and rhythm. No extra sounds. Abdomen: Soft, nontender. Bowel sounds positive. No organomegaly. Extremities: No clubbing, cyanosis. Intact pulses. Skin: No rashes. Neurologic: Alert, awake, oriented x3. No acute focal deficits appreciated. Assessment And Recommendation: Unstable angina with known coronary artery disease and needs PCI of R CA. We will plan to keep n.p.o. past midnight and plan to do tomorrow afternoon. Keep him on aspiri n and Plavix. Thank you for the consult. /AMINAH Voice ID: [id number] Report ID: [id number]
[2021-12-01] MEDS: DONEPEZIL HCL 5 MG TAB PO SCH (20:22)
[2021-12-01] MEDS: ATORVASTATIN 40 MG TAB PO SCH (20:22)
[2021-12-01] MEDS ORDERED: INSULIN GLARGINE 100 UNIT/ML SQ SCH (21:00)
--- NOTE | 2021-12-01 21:44 | RAD REPORT ---
EXAM DESCRIPTION: CT - Stone Protocol - 11/30/2021 5:56 am CLINICAL HISTORY: The patient is 81 years old and is Male; back pain TECHNIQUE: Axial computed tomography images of the abdomen and pelvis without intravenous contrast. Sagittal and coronal reformatted images were created and reviewed. This CT exam was performed usi ng one or more of the following dose reduction techniques: automated exposure control, adjustment o f the mA and/or kV according to patient size, and/or use of iterative reconstruction technique. COMPARISON: CT ABDOMEN PELVIS dated April 24 2021 FINDINGS: LUNG BASES: Unremarkable. No mass. No consolidation. ABDOMEN: LIVER: Homogeneous without focal mass. GALLBLADDER AND BILE DUCTS: Gallbladder is prominent. No calcified gallstones or ductal dilatatio n is seen. PANCREAS: The pancreas is atrophic. Coarse calcifications are present within the pancreatic par enchyma some of which are likely vascular the pancreas is otherwise unremarkable. No ductal dilatio n. SPLEEN: Unremarkable. ADRENALS: Unremarkable. No mass. KIDNEYS AND URETERS: The right kidney is surgically absent. Nonspecific left perinephric strandin g is present. There is no hydronephrosis or hydroureter of the left kidney. STOMACH AND BOWEL: The stomach is decompressed. Small bowel is normal in caliber. Stool is presen t throughout colon. Scattered colonic diverticula are noted without surrounding inflammation. There i s no mucosal thickening or evidence of bowel obstruction. PELVIS: APPENDIX: No findings to suggest acute appendicitis. BLADDER: The bladder is nearly empty. No stones. REPRODUCTIVE: A penile implant is in place. ABDOMEN and PELVIS: INTRAPERITONEAL SPACE: Unremarkable. No free air. No significant fluid collection. BONES/JOINTS: Postsurgical change of the lumbar spine with spinal rods and pedicle screws from L3 through L5 is noted. Degenerative change at L4-L5 is present. SOFT TISSUES: Unremarkable. VASCULATURE: Atherosclerosis of vasculature is present. LYMPH NODES: Unremarkable. No enlarged lymph nodes. TUBES, LINES AND DEVICES: Battery pack for a neural stimulator is noted within the soft tissues o f the right flank. IMPRESSION: No acute findings on this noncontrasted CT of the abdomen and pelvis to explain the chet ent's symptoms. Chronic findings as detailed above. Electronically signed by: Fanny Bradford MD 11/30/2021 3:33 AM [employer] [facility] Due to temporary technical issues with the PACS/Fluency reporting system, reports are being signed by the in house radiologists without review as a courtesy to insure prompt reporting. The interpreting radiologist is fully responsible for the content of the report.
[2021-12-02] MEDS: METOPROLOL TAR 25 MG TAB PO SCH ×2 (05:10→20:26)
[2021-12-02] MEDS: CLOPIDOGREL 75 MG TABLET PO SCH (05:11)
[2021-12-02] MEDS: ASPIRIN 81 MG CHEWABLE TABLET PO SCH (05:12)
[2021-12-02 06:34] VITALS: BMI 26.6
[2021-12-02 06:35] LABS: Absolute Lymphocytes (CBC) 1.2 K/uL (0.7-4.9); Hematocrit 33.8 % (39.6-49.0); Lymphocytes % 17.7 % (15.3-44.8); MPV 7.5 fL (7.6-11.3)
[2021-12-02] MEDS: INSULIN -REGULAR HUMAN 50 UNIT/0.5 ML ML SQ SCH ×2 (07:21→11:30)
[2021-12-02] MEDS: lisinopriL 5 MG TAB PO SCH (08:31)
[2021-12-02] MEDS: ISOSORBIDE MONO SR 30 MG TAB PO SCH (08:32)
[2021-12-02] MEDS ORDERED: HEPA 1000U/500MLS 1,000 UNIT/500 ML BAG IV ONE ×3 (08:51→14:40)
[2021-12-02] MEDS ORDERED: SITAGLIPTIN PHOS 100 MG TAB PO SCH (09:00)
[2021-12-02] MEDS ORDERED: VITAMIN B COMPLEX 1 CAP PO SCH (09:00)
[2021-12-02] MEDS ORDERED: NA CHLORIDE 0.9% 500 ML ONE (13:34)
[2021-12-02] MEDS ORDERED: VERAPAMIL HCL 10 MG/4 ML VIAL IV ONE (14:20)
[2021-12-02] MEDS ORDERED: MIDAZOLAM HCL 2 MG/2 ML INJ ONE (14:20)
[2021-12-02] MEDS ORDERED: HEPARIN 5000 UNIT/ML 1 ML VIAL ONE (14:20)
[2021-12-02] MEDS ORDERED: NITROGLYCERIN 100 MCG/ML SYR (for cath lab use only) IV ONE (14:20)
[2021-12-02] MEDS ORDERED: FENTANYL CITR 100 MCG/2 ML ONE (14:20)
[2021-12-02] MEDS ORDERED: ATROPINE SULF 1 MG/10 ML SYR IV ONE (14:21)
--- NOTE | 2021-12-02 15:15 | P.PN ---
Subjective Date of Service: 12/02/21 Chief Complaint: chest pain Patient complaining of abdominal pain. He reports constipation for 4 days. No nausea or vomiting. He denies any chest pain. Physical Examination - Vital Signs Temperature: 98.5 F Blood Pressure: 178/81 Pulse: 55 Respirations: 16 Pulse Ox (%): 98 - Physical Exam General: Alert, In no apparent distress, Oriented x3 HEENT: Mucous membr. moist/pink Neck: JVD not distended Respiratory: Clear to auscultation bilaterally, Normal air movement Cardiovascular: Regular rate/rhythm, Normal S1 S2 Gastrointestinal: Soft and benign, Non-distended, Other (Obese abdomen) Integumentary: No cyanosis Neurological: Normal strength at 5/5 x4 extr - Studies Laboratory Data (last 24 hrs) 12/02/21 06:19: Sodium 136, Potassium 4.0, BUN 24 H, Creatinine 1.60 H, Glucose 167 H 12/02/21 06:19: WBC 7.00, Hgb 11.4 L, Hct 33.8 L, Plt Count 178 Microbiology Data (last 24 hrs): 11/30/21 03:08 Clean Catch Urine Jal Count - Final <10,000 CFU/ML. 11/30/21 03:08 Clean Catch Urine - Final MIXED JULIETTE. Assessment And Plan - Current Problems (Diagnosis) (1) UTI (urinary tract infection) Current Visit: Yes Status: Acute (2) HLD (hyperlipidemia) Current Visit: Yes Status: Chronic Qualifiers: Hyperlipidemia type: unspecified Qualified Code(s): E78.5 - Hyperlipidemia, unspecified (3) HTN (hypertension) Current Visit: Yes Status: Chronic Qualifiers: Hypertension type: primary hypertension Qualified Code(s): I10 - Essential (primary) hypertension (4) Chest pain Current Visit: No Status: Acute Qualifiers: Chest pain type: unspecified Qualified Code(s): R07.9 - Chest pain, unspecified (5) Coronary angioplasty status Current Visit: No Status: Acute (6) Coronary artery disease Current Visit: No Status: Chronic Qualifiers: Coronary Disease-Associated Artery/Lesion type: [place] artery [place] vs. transplanted heart: [place] heart Associated angina: with unspecified form of angina Qualified Code(s): I25.119 - Atherosclerotic heart disease of [place] coronary artery with unspecified angina pectoris (7) Diabetes mellitus type 2 in nonobese Current Visit: No Status: Chronic - Plan Patient scheduled for cardiac catheterization today On aspirin and Plavix and metoprolol. Continue Isosorbide. LDL is below target. Continue Lipitor UA suggest UTI, urine culture showed mixed growth. Continue antibiotics. Planning 5 days of antibiotic treatment for UTI. Start laxatives for constipation after cardiac catheterization.
[2021-12-02] MEDS ORDERED: HYDROCODONE/APAP 10/325 TAB PO SCH (18:00)
--- NOTE | 2021-12-02 18:19 | P.DS ---
Admission Date: 12/02/21 Discharge Date: 12/02/21 Disposition: ROUTINE DISCHARGE Discharge Condition: FAIR Reason for Admission: chest pain - Problems (1) UTI (urinary tract infection) Current Visit: Yes Status: Acute (2) HLD (hyperlipidemia) Current Visit: Yes Status: Chronic Qualifiers: Hyperlipidemia type: unspecified Qualified Code(s): E78.5 - Hyperlipidemia, unspecified (3) HTN (hypertension) Current Visit: Yes Status: Chronic Qualifiers: Hypertension type: primary hypertension Qualified Code(s): I10 - Essential (primary) hypertension (4) Chest pain Current Visit: No Status: Acute Qualifiers: Chest pain type: unspecified Qualified Code(s): R07.9 - Chest pain, unspecified (5) Coronary angioplasty status Current Visit: No Status: Acute (6) Coronary artery disease Current Visit: No Status: Chronic Qualifiers: Coronary Disease-Associated Artery/Lesion type: [place] artery [place] vs. transplanted heart: [place] heart Associated angina: with unspecified form of angina Qualified Code(s): I25.119 - Atherosclerotic heart disease of [place] coronary artery with unspecified angina pectoris (7) Diabetes mellitus type 2 in nonobese Current Visit: No Status: Chronic Brief History of Present Illness: Mr. Sarmiento is an 81 yo M with CAD, CHF, CKD, T2DM, HTN, HLD who presents with 5/10 left sided intermittent chest pain of 3 days duration. He says it occurs at rest and usually is worse at night. He has had 4 cardiac stents placed in the past, and 2 more stents placed approximately 1 month ago. He also reports chronic back pain and uses lidocaine patches at home. BUN 23 Cr 1.65 GFR 40 Glu 155 BNP 745 initial troponin within normal limits. sinus bradycardia on telemetry. Pain free during examination in the ED. Patient admitted for further management. Hospital Course: Patient admitted to the medical floor, treated for CAD with aspirin, Plavix, beta-raven and statin. He was seen in consultation by cardiology-Dr. Baldwin who recommended cardiac catheterization. Cardiac cath revealed multiple CAD lesions. Stent placed. Patient was asymptomatic during the hospital stay. Patient cleared for discharge by cardiology. Dr. Baldwin recommend follow-up with him for further procedure including laser therapy for coronary artery disease. Vital Signs/Physical Exam: Temp Pulse Resp BP Pulse Ox 98.5 F 81 16 135/68 97 12/02/21 15:16 12/02/21 17:35 12/02/21 17:35 12/02/21 17:35 12/02/21 17:23 General: Alert, In no apparent distress, Oriented x3 HEENT: Mucous membr. moist/pink Neck: JVD not distended Respiratory: Clear to auscultation bilaterally, Normal air movement Cardiovascular: No edema, Regular rate/rhythm, Normal S1 S2 Gastrointestinal: Soft and benign, Non-distended Musculoskeletal: No swelling Integumentary: No rashes Neurological: Normal strength at 5/5 x4 extr Laboratory Data at Discharge: WBC 7.00 K/uL (4.3-10.9) 12/02/21 06:19 Hgb 11.4 g/dL (13.6-17.9) L 12/02/21 06:19 Hct 33.8 % (39.6-49.0) L 12/02/21 06:19 Plt Count 178 K/uL (152-406) 12/02/21 06:19 PT 11.9 SECONDS (9.5-12.5) 11/30/21 01:15 INR 1.03 11/30/21 01:15 Sodium 136 mmol/L (136-145) 12/02/21 06:19 Potassium 4.0 mmol/L (3.5-5.1) 12/02/21 06:19 BUN 24 mg/dL (7-18) H 12/02/21 06:19 Creatinine 1.60 mg/dL (0.55-1.3) H 12/02/21 06:19 Glucose 167 mg/dL (74-106) H 12/02/21 06:19 Phosphorus 3.8 mg/dL (2.5-4.9) 11/30/21 09:22 Magnesium 2.8 mg/dL (1.8-2.4) H D 11/30/21 09:22 Total Bilirubin 0.7 mg/dL (0.2-1.0) 11/30/21 00:24 AST 12 U/L (15-37) L 11/30/21 00:24 ALT 17 U/L (12-78) 11/30/21 00:24 Alkaline Phosphatase 54 U/L (45-117) 11/30/21 00:24 Triglycerides 105 mg/dL (<150) 12/01/21 04:52 Cholesterol 92 mg/dL (<200) 12/01/21 04:52 HDL Cholesterol 47 mg/dL (40-60) 12/01/21 04:52 Cholesterol/HDL Ratio 1.96 12/01/21 04:52 Home Medications: Atorvastatin Calcium 1 tab PO BEDTIME 03/10/20 Insulin Glargine Human [Lantus*] 10 unit SQ BEDTIME 03/10/20 Donepezil HCl [Aricept] 5 mg PO BEDTIME 03/17/20 Furosemide [Lasix*] 20 mg PO DAILY 03/17/20 Isosorbide Mononitrate [Isosorbide Mononitrate ER] 120 tab PO DAILY 09/24/20 Lisinopril [Zestril] 5 mg PO DAILY 09/24/20 Sitagliptin Phosphate [Januvia*] 50 mg PO DAILY 09/24/20 Aspirin 1 tab PO DAILY #30 tab.chew 10/29/21 Clopidogrel Bisulfate [Plavix*] 75 mg PO DAILY #30 tablet 10/29/21 Metoprolol Tartrate [Lopressor*] 12.5 mg PO BID 6AM 6PM #60 tab 10/29/21 Codeine/APAP [Tylenol #3*] 1 tab PO DAILY 11/30/21 Lidocaine 1 each TP DAILY PRN 11/30/21 Nitroglycerin 0.4 mg SL DAILY PRN 11/30/21 Potassium Chloride [Klor-Con 10] 10 meq PO DAILY 11/30/21 Quetiapine Fumarate [Seroquel] 25 mg PO BEDTIME PRN PRN 11/30/21 Trazodone [Desyrel*] 50 mg PO BEDTIME PRN 11/30/21 Vitamin B Complex [B Complex] 1 each PO DAILY 11/30/21 Diet: ADA Activity: Ad wilmer Followup: NONE,NONE [Primary Care Provider] - 1-2 Weeks Jim Baldwin MD [ACTIVE - CAN ADMIT] - 1 Week Time spent managing pt's care (in minutes): 35
--- NOTE | 2021-12-02 19:36 | OP ---
Date of Procedure: 12/02/2021 Surgeon: SIN BEAR Procedure Performed: Selective coronary angiogram. Indication: Chest pain, ongoing angina, and known coronary artery disease. Access: Right radial artery 6-Danish closed with TR band, very difficult radial access. Complications: None. Bleeding: Less than 10 mL. Anesthesia: Total sedation time was 45 minutes. Description Of Procedure: After risks, benefits, and alternatives were explained, the patient agreed to procedure and signed informed consent. The patient was brought into the cardiac catheterization laboratory, prepped and draped in usual sterile fashion. We [facility] the right radial [facility] to [facility] a 6-Danish Slender sheath and took a 5-Danish [place] 4.0 catheter into the aortic root, engaged the left main coronary artery, took standard views and then exchanged f or JR4 catheter, engaged the RCA, and took standard views. Subclavian access was very tortuous and w e exchanged for a 6-Danish JR4 catheter guide to plan for balloon angioplasty of the proximal RCA tip nt. However, due to tortuosity, could not engage the artery very well. The patient had received hep noemi by that time, so we decided to abort the procedure here and plan to do shockwave lithotripsy of the LAD and RCA in [place] at the same time using groin access. Then the guide was removed and sh eath was removed, placed TR band, good hemostasis. Findings: 1.Left main is normal. 2.LAD has a very long stent extending from the ostium to the mid portion after diagonal 2 branch wit h focal area in the midportion appears to be under-expanded due to heavy calcium around it. There wa s 70% in-stent restenosis. Diagonal 2 branch has proximal 90% stenosis. 3.Left circumflex is patent with diffuse luminal irregularities. 4.RCA proximal stent has 80% in-stent restenosis and then diffuse 10% to 20% in-stent restenosis. Conclusion: 1.Severe mid LAD in-stent restenosis with heavy calcium load. 2.Severe proximal RCA in-stent stenosis with heavy calcium load. 3.Difficult radial access. Plan: Shockwave lithotripsy and balloon angioplasty of LAD and RCA using groin access. SR/MODL Voice ID: [id number] Report ID: [id number]
[2021-12-02] MEDS: DONEPEZIL HCL 5 MG TAB PO SCH (20:26)
[2021-12-02] MEDS: ATORVASTATIN 40 MG TAB PO SCH (20:26)
[2021-12-02 20:33] VITALS: BP 150/70
[2021-12-02 20:45] VITALS: TEMP 97.6
[2021-12-02 22:23] VITALS: O2SAT 94
--- NOTE | 2021-12-04 07:34 | EKG ---
Test Date: 2021-12-01 Test Time: 20:16:19 Electronic Parts Salesperson: ELÍASG MEASUREMENT RESULTS: Intervals: Rate: 55 MT: 164 QRSD: 92 QT: 456 QTc: 436 [place]: P: 45 MT: 164 QRS: -60 T: 187 INTERPRETIVE STATEMENTS: Sinus bradycardia with occasional premature ventricular complexes Left axis deviation Possible Anterior infarct, age undetermined T wave abnormality, consider inferolateral ischemia Abnormal ECG Compared to ECG 10/28/2021 00:18:28 Myocardial infarct finding now present T-wave abnormality still present Possible ischemia still present Electronically Signed On 12-04-21 07:26:53 OPTICAL STORE MANAGER by Gibson Davidson
== END 2021-12-02 21:10 | disposition home or self-care (01) | DRG 287 ==
LOC: ER 23:47 → ERHOLD 11-30 04:00 → 2ND 11-30 09:00 → OBSVTOIN 12-02 07:48
PROVIDERS: ADMIT Internal Medicine; ATTEND Internal Medicine
PROC: B201YZZ Plain Radiography of Multiple Coronary Arteries using Other Contrast (ICD-10-PCS; principal; 2021-12-02)
DX: I25.110 Atherosclerotic heart disease of native coronary artery with unstable angina pectoris (principal); N39.0 Urinary tract infection, site not specified; I13.0 Hypertensive heart and chronic kidney disease with heart failure and stage 1 through stage 4 chronic kidney disease, or unspecified chronic kidney disease; Q60.0 Renal agenesis, unilateral; E78.5 Hyperlipidemia, unspecified; K59.00 Constipation, unspecified; E11.22 Type 2 diabetes mellitus with diabetic chronic kidney disease; N18.32 Chronic kidney disease, stage 3b; I50.9 Heart failure, unspecified; M54.9 Dorsalgia, unspecified; G89.29 Other chronic pain; Z95.5 Presence of coronary angioplasty implant and graft; Z20.822 Contact with and (suspected) exposure to COVID-19
CPT/HCPCS: 36415; 71045; 74176; 76377; 80048; 80061; 80076; 81003; 81015; 82947; 83735; 83880; 84100; 84439; 84443; 84484; 85025; 85610; 87086; 87088; 93005; 93454; 96374; 96375; 99285; C1893; G0378; J1644; J1650; J2250; J2270; J2405; J3010; J7040; U0003

== ENCOUNTER 2021-12-03 17:45 | Observation (INO) | payer OTHER ==
--- OUTSIDE RECORDS SUMMARY | 2021-12-03 17:57 | XMS REPORT | Continuity of Care Document ---
:1940 Author Organization [facility] t Address [address] [place] [address] Care Team Providers Name Role Phone Andres Briscoe DO Primary Care Physician Denny Attending Clinician Unavailable Doctor Unassigned, Name Attending Clinician Unavailable Candace STONER, A Attending Clinician Unavailable ALYSSA Attending Clinician Unavailable Vidal WOOTEN, S Attending Clinician Alyssa WOOTEN Attending Clinician Pcp, Does Not Have A Attending Clinician Ceasar Meeks Attending Clinician Umang WOOTEN Attending Clinician Justina Flores MD Attending Clinician Ariel STONER Attending Clinician Babar GONG Attending Clinician Justina FLORES Attending Clinician Unavailable Sharon Dimas Attending Clinician Sharon HARRY Attending Clinician Unavailable Maribell_P Attending Clinician Unavailable Silvina STONER, M Attending Clinician Julio Cesar WOTOEN Attending Clinician JULIO CESAR Attending Clinician Unavailable [...] Policy Number Effective Date Expiration Date [facility] [id number] 2019 DUAL COMPLETE HMO 00:00:00 MEDICAID [facility] [id number] 2018 00:00:00 Problems Condition Condition Condition Status Onset Resolution Last Treating Co mments Source Name Details Category Date Date Treatment Clinician Date Unstable Unstable Disease Active Unive rs angina angina 03-22 ity of 00:00: [place] [address] Medical Branch ALBA (acute ALBA (acute Disease Active U nivers kidney kidney 4-21 ity of injury) injury) 00:00: [place] 00 Medical Branch Chest pain Chest pain Disease Active 2020- U nivers 4-21 ity of 00:00: [place] 00 Medical Branch Chest pain Chest pain Disease Active 2020- U 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 4-15 it y of 00:00: [place] 00 Medical Branch Chronic Chronic Disease Active 2019- Univers combined combined 3-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 00:00: [place] and and 00 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 2018-11 U nivers lobe lobe 1-06 ity of pneumonia [facility] PNA PNA Disease Active 2018-11 Univers (pneumonia (pneumonia 0-25 it y of ) ) 00:00: [place] 00 Medical Branch Acute on Acute on Disease Active 2018-11 Unive rs chronic chronic 0-25 ity of combined combined 00:00: [place] systolic systolic 00 Medica l and and Branch 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 Dyspnea Dyspnea Disease Active 2018-11 Univers 0-23 ity of 00:00: [place] 00 Medical Branch CHF CHF Disease Active Univers exacerbati exacerbati 2-17 it y of on on 00:00: [place] 00 Medical Branch Essential Essential Disease Active Uni vers hypertensi hypertensi 2-17 it y of on on 00:00: [place] 00 Medical Branch 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 00:00: [place] without without 00 Medical complicati complicati Br anch on, on, without without long-term long-term current current use of use of insulin insulin CHF CHF Disease Active Univers exacerbati exacerbati 2-17 it y of on on 00:00: [place] 00 Medical Branch Acute on Acute on Disease Active Unive rs chronic chronic 1-28 ity of systolic systolic 00:00: [place] CHF CHF 00 Medical (congestiv (congestiv Br anch e heart e heart failure) failure) Elevated Elevated Disease Active Unive rs troponin I troponin I 1-27 it y of level level 00:00: [place] 00 Medical Branch DE LA CRUZ DE LA CRUZ Disease Active Univers (dyspnea (dyspnea 1-27 ity of on on 00:00: [place] exertion) exertion) 00 [facility] Branch Coronary Coronary Disease Active Unive rs artery artery 1-27 ity of disease disease 00:00: [place] involving involving 00 Medi birdie [place] Branch 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 00:00: [place] disease disease 00 Medical Branch Coronary Coronary Disease Active Unive rs artery artery 1-27 ity of disease disease 00:00: [place] involving involving 00 Medi birdie [place] Branch 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 [...] St eye exam eye exam [facility] On home On home Problem Active [facility] oxygen oxygen [facility] - therapy therapy Mem[facility] l [facility] Coronary Coronary Problem Active [facility] t artery artery [facility] - disease disease Memoria involving involving l [place] Outpati coronary coronary ent artery of artery of Clin ics [place] heart, heart, angina angina presence presence unspecifie unspecifie d d S/P S/P Problem Active [facility] coronary coronary [facility] - artery artery Memoria stent stent l placement placement Outp ati ent Clinics 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 Luke s - diabetes diabetes Memori a mellitus mellitus l with with Outpati hyperglyce hyperglyce en t [facility] Need for Need for Problem Active [facility] dental dental [facility] care care [facility] ent Clinics History of History of Problem Active [facility] prostate prostate [facility] cancer cancer [facility] Alzheimer Alzheimer Problem Active [facility] disease disease [facility]ics Diabetes Diabetes Problem [facility] Heart Heart Problem Active [facility] disease disease [facility] Heart Heart Problem Active [facility] attack attack [facility] Blurry Blurry Problem Active [facility] vision, vision, [facility] - bilateral bilateral Manjit greg l [facility] Chronic Chronic Problem Active [facility] pain pain [facility] - syndrome syndrome Memori a l Outpati ent Clinics Allergies, Adverse Reactions, Alerts Allergy Allergy Status Severity Reaction(s) Onset Inactive Treating Comm ents Source Name Type Date Date Clinician No Known DA Active U [facility] Allergie 12-08 Clear s 00:00: [place] 00 [facility] NO KNOWN Drug Active Univers ALLERGIE Class ity of S [facility] Social History Social Habit Start Date Stop Date Quantity Comments Source Exposure to Yes University of SARS-CoV-2 (event) [facility] History of tobacco User of [facility] sity of use smokeless [facility] tobacco [facility] Alcohol intake 2021-10-31 2021-10-31 Current University of 00:00:00 00:00:00 non-drinker of [facility] alcohol Branch (finding) Cigarettes smoked 2018-12-11 2018-12-11 Univers ity of current (pack per 00:00:00 00:00:00 ) - Reported Branch Cigarette 2018-12-11 2018-12-11 University of pack-years 00:00:00 00:00:00 [facility] Tobacco use and 2018-12-11 2018-12-11 Former user Universi ty of exposure 00:00:00 00:00:00 [facility] Sex Ass[birth year] At [birth year] Universit y of 00:00:00 00:00:00 [facility] Smoking Status Start Date Stop Date Source Former smoker 2018-12-11 00:00:00 2018-12-11 00:00:00 [facility] Medications Ordered Filled Start Stop Current Ordering Indication Dosage Frequency Signature Comments Components Source Medication Medication Date Date Medication? Clinician (SIG) Name Name aspirin 81 2020-11- Yes [id number] 81mg Take 1 Univers mg chewable 2-04 12- tablet by it y of tablet 00:00: 05:59 mouth [place] 00 :00 daily for Medical 30 days. Branch clopidogreL 2020-11- Yes [id number] 75mg Take 1 Univers 75 mg 2-19 - tablet by ity of tablet 00:00: 05:59 mouth [place] 00 :00 daily for Medical 30 days. Branch furosemide 2020-11- Yes [id number] 20mg Take 1 Univers 20 mg 2-19 - tablet by ity of tablet 00:00: 05:59 mouth [place] 00 :00 daily for Medical 30 days. Branch aspirin 81 2020-11- Yes [id number] 81mg Take 1 Univers mg chewable 2-12-04 tablet by it y of tablet 00:00: 05:59 mouth [place] 00 :00 daily for Medical 30 days. Branch clopidogreL 2020-11- Yes [id number] 75mg Take 1 Univers 75 mg 2-12-04 tablet by ity of tablet 00:00: 05:59 mouth [place] 00 :00 daily for Medical 30 days. Branch furosemide 2020-11- Yes [id number] 20mg Take 1 Univers 20 mg 2-12-04 tablet by ity of tablet 00:00: 05:59 mouth [place] 00 :00 daily for Medical 30 days. Branch aspirin 81 2020-11- Yes [id number] 81mg Take 1 Univers mg chewable 2-12-04 tablet by it y of tablet 00:00: 05:59 mouth [place] 00 :00 daily for Medical 30 days. Branch clopidogreL 2020-11- Yes [id number] 75mg Take 1 Univers 75 mg 2-19 - tablet by ity of tablet 00:00: 05:59 mouth [place] 00 :00 daily for Medical 30 days. Branch furosemide 2020-11- Yes [id number] 20mg Take 1 Univers 20 mg 2-19 - tablet by ity of tablet 00:00: 05:59 [...] 2-18 by mouth ity of 18:25: at [place] 21 bedtime. Medical Branch atorvastati 2020-11 Yes 40mg Take 40 mg Univers n 40 mg 2-18 by mouth ity of tablet 18:25: at [place] 21 bedtime. Medical Branch metoprolol 2020-11 Yes [...] tablet 53 :00 daily. Medical Branch LISINOPRIL 2020-11- No 5mg Take 5 mg U nivers [...] Until Discontinu ed, Routine QUEtiapine 2020-11 Yes [id number] 25mg Take 1 Univers 25 mg 2-18 tablet by ity of tablet 00:00: mouth at [place] 00 bedtime as Medical needed Branch (agitation /insomnia) . QUEtiapine 2020-11 Yes [id number] 25mg Take 1 Univers 25 mg 2-18 tablet by ity of tablet 00:00: mouth at [place] 00 bedtime as Medical needed Branch (agitation /insomnia) . QUEtiapine 2020-11 Yes [id number] 25mg Take 1 Univers 25 mg 2-18 tablet by ity of tablet 00:00: mouth at [place] 00 bedtime as Medical needed Branch (agitation /insomnia) . isosorbide 2020-11- Yes [id number] 60mg Take 1 Univers mononitrate 2-18 -18 tablet by it y of 60 mg 24 hr 00:00: 05:59 mouth 2 [place] tablet 00 :00 (two) Medical times Branch daily for 30 days. metoprolol 2020-11- Yes [id number] 37.5mg Take 1.5 Univers succinate 2-18 -18 tablets by ity of XL 25 mg 24 00:00: 05:59 mouth 2 [place] hr tablet 00 :00 (two) Medical times Branch daily for 30 days. isosorbide 2020-11- Yes [id number] 60mg Take 1 Univers mononitrate 2-18 -18 tablet by it y of 60 mg 24 hr 00:00: 05:59 mouth 2 [place] tablet 00 :00 (two) Medical times Branch daily for 30 days. metoprolol 2020-11- Yes [id number] 37.5mg Take 1.5 Univers succinate 2-18 -18 tablets by ity of XL 25 mg 24 00:00: 05:59 mouth 2 [place] hr tablet 00 :00 (two) Medical times Branch daily for 30 days. isosorbide 2020-11- Yes [id number] 60mg Take 1 Univers mononitrate 2-18 -18 tablet by it y of 60 mg 24 hr 00:00: 05:59 mouth 2 [place] tablet 00 :00 (two) Medical times Branch daily for 30 days. metoprolol 2020-11- Yes [id number] 37.5mg Take 1.5 Univers succinate 2-18 -18 tablets by ity of XL 25 mg 24 00:00: 05:59 mouth 2 [place] hr tablet 00 :00 (two) Medical times Branch daily for 30 days. aspirin 2020-11 Yes 81mg 81 mg, Univers chewable 2-17 Oral, ity of tablet 81 15:00: DAILY, [place] mg 00 First dose Medical on Fri Branch 11/01/21 at 0900, Until Discontinu ed, Routine furosemide 2020-11 Yes 20mg 20 mg, Unive rs (LASIX) 2-17 Oral, ity of tablet 20 14:30: DAILY, [place] mg 00 First dose Medical on Thu Branch 11/01/21 at 0830, Until Discontinu ed, Routine metoprolol 2020-11- No 25mg 25 mg, Univ ers succinate 2-18 Oral, BID, ity of XL (TOPROL 14:30: 14:17 First dose [place] XL) tablet 00 :36 on [facility] Medical 25 mg 11/01/21 Branch at 0830, Until Discontinu ed, Routine QUEtiapine 2020-11 Yes 25mg 25 mg, Unive rs (SEROQUEL) 2-17 Oral, ity of tablet 25 09:22: QHSPRN, [place] mg 01 Starting Medical on Thu Branch 11/01/21 at 0322, Until Discontinu ed, Routine, agitation/ insomnia donepeziL 2020-11 Yes 5mg 5 mg, Univers (ARICEPT) 2-17 Oral, QHS, ity of tablet 5 mg 03:00: First dose [place] 00 on [facility] 10/31/21 Branch at 2100, Until Discontinu ed, Routine atorvastati 2020-11 Yes 40mg 40 mg, Univ ers n (LIPITOR) 2-17 Oral, QHS, it y of tablet 40 03:00: First dose [place] mg 00 on [facility] 10/31/21 Branch at 2100, Until Discontinu ed, Routine clopidogreL 2020-11 Yes 75mg 75 mg, Univ ers (PLAVIX) 2-16 Oral, ity of tablet 75 23:30: DAILY, [place] mg 00 First dose Medical on [facility] Branch 10/31/21 at 1730, Until Discontinu ed, Routine sulfur 2020-11- No [id number] 5mL 5 mL, Unive rs hexafluorid 01-01 Intravenou i ty of e microsphr 17:00: 17:00 s, ONCE, 1 [place] (LUMASON) 00 :00 dose, On Medica l injection [address] [facility] Branch mL 10/31/21 at 1100, Routine
community board member approving Restricted medication : MEGGAN CAMARA isosorbide 2020-11- No 120mg 120 mg, Un mel mononitrate 01-01 Oral, ity of (IMDUR) 24 15:00: 14:16 [...] No 1mg/kg 80 mg Uni vers (LOVENOX) -18 (rounded ity o f injection 09:00: 14:17 from 78 mg [place] 80 mg 00 :35 = 1 mg/kg Medical ?78 kg), Branch Subcutatno , Q24H, First dose on Madhavi 10/31/21 at 0300, Until Discontinu ed, Routine aspirin 2020-11 No 325mg 325 mg, Unive rs tablet 325 01-01 Oral, ity of mg 08:45: 08:15 ONCE, 1 [place] 00 :00 dose, On Medical Madhavi Branch 10/31/21 at 0245, Routine glucagon 2020-11 Yes 1mg 1 mg, Univers (GLUCAGEN 2-16 Intramuscu ity of DIAGNOSTIC 08:16: [place], PRN, [place] KIT) 15 Starting Medical injection [address] [facility] Branch mg 10/31/21 at 0216, Until Discontinu ed, ADAMA, Blood Glucose < or = 70 mg/dL and patient is unable to swallow or has mental changes. dextrose 50 2020-11 Yes 25mL 25 mL, Univ ers % in water 2-16 Slow IV ity of (D50W) 08:16: Push, PRN, [place] injection 14 Starting Medica l 25 mL on Madhavi Branch 10/31/21 at 0216, Until Discontinu ed, ADAMA, Blood Glucose < or = 70 mg/dL and patient is unable to swallow or has mental status changes. morpHINE 2020-11- No 2mg 2 mg, Slow Un mel injection 2 -16 12-17 IV Push, ity of mg 07:36: 05:31 Q4HPRN, [place] 09 :07 Starting Medical on Mad[place] Branch 10/31/21 at 0136, Until Madhavi 10/31/21 [...] IV Push, ity of (PF)) 05:32: Q6HPRN, [place] injection 4 10 Starting Medi birdie mg on Wed Branch 10/30/21 at 2332, Until Discontinu ed, Routine, Nausea and Vomiting (N/V) acetaminoph 2020-11 Yes 650mg 650 mg, Un mel en 2-16 Oral, ity of (TYLENOL) 05:31: Q6HPRN, [place] tablet 650 56 Starting Medic al mg on Thu Branch 10/30/21 at 2331, Until Discontinu ed, Routine, Pain (scale 1-3) acetaminoph 2020-11 Yes [id number] 1{tbl} 1 tablet, Univers en-codeine 2-16 Oral, ity of (TYLENOL 05:29: Q6HPRN, [place] #3) 300-30 29 Starting Medic al mg tablet 1 on Thu Branch tablet 10/30/21 at 2329, Until Discontinu ed, Routine, Pain (scale 4-6), Pain (scale 7-10) sodium 2020-11 Yes 5mL 5 mL, Univers chloride 2-16 Intravenou ity o f (NS) 01:21: s, PRN, [place] injection 5 02 Starting Medi birdie mL on Wed Branch 10/30/21 at 1921, Until Discontinu ed, Routine, IV line flushing morpHINE 0 2020- No 4mg 4 mg, Slow Un mel injection 4 6-10 06-10 IV Push, ity of mg 23:15: 22:23 ONCE, 1 [place] 00 :00 dose, Madhavi Medical 04/25/21 at Branch 1815, STAT acetaminoph 2020-0 2020- No 1{tbl} 1 tablet, Univers en-codeine 6-10 06-10 Oral, ity of (TYLENOL 19:00: 17:52 ONCE, 1 [place] #3) 300-30 00 :00 dose, [place] Medi birdie mg tablet 1 04/25/21 at Br anch tablet 1400, ADAMA cyclobenzap 2020- No 10mg 10 mg, Uni vers rine 6-10 06-10 Oral, ONCE ity of (FLEXERIL) 19:00: 17:52 NOW, 1 [place] tablet 10 00 :00 dose, [place] Medic al mg 04/25/21 at Branch 1400, ADAMA cyclobenzap Yes [id number] 5mg Take 1 Univers rine 5 mg 6-10 tablet by ity o f tablet 00:00: mouth 3 [place] 00 (three) Medical times Branch daily. cyclobenzap Yes [id number] 5mg Take 1 Univers rine 5 mg 6-10 tablet by ity o f tablet 00:00: mouth 3 [place] 00 (three) Medical times Branch daily. cyclobenzap Yes [id number] 5mg Take 1 Univers rine 5 mg 6-10 tablet by ity o f tablet 00:00: mouth 3 00 (three) Medical times Branch daily. acetaminoph 2020-0 Yes [id number] 1{tbl} Take 1 Un mel en-codeine 6-10 tablet by ity of 300-30 mg 00:00: mouth [place] tablet 00 every 6 Medical (six) Branch hours as needed for Pain (scale 4-6). Indication s: acute pain, left sided low back pain cyclobenzap Yes [id number] 5mg Take 1 Univers rine 5 mg 6-10 tablet by ity o f tablet 00:00: mouth 3 [place] 00 (three) Medical times Branch daily. acetaminoph 2020- Yes [id number] 1{tbl} Take 1 Un mel en-codeine 6-10 tablet by ity of 300-30 mg 00:00: mouth [place] tablet 00 every 6 Medical (six) Branch hours as needed for Pain (scale 4-6). Indication s: acute pain, left sided low back pain cyclobenzap 2020- Yes [id number] 5mg Take 1 Univers rine 5 mg 6-10 tablet by ity o f tablet 00:00: mouth 3 [place] 00 (three) Medical times Branch daily. acetaminoph 2020-0 202- No [id number] 1{tbl} Take 1 U nivers [...] 50mg Take 1 Uni vers mg tablet 05-2415 tablet by ity of 00:00: 04:59 mouth [place] 00 :00 every 8 Medical (eight) Branch hours as needed for Pain (scale 4-6) for up to 5 days. Indication s: acute pain insulin 2020-0 Yes 30U 30 Units, Unive rs glargine 03-24 Subcutaneo ity o f (LANTUS 14:00: us, DAILY, [place] U-100) 00 First dose Medical injection on [facility] 30 Units 03/24/20 at 0900, Until Discontinu ed clopidogreL 2019-0 Yes 75mg 75 mg, Univ ers (PLAVIX) 03-24 Oral, ity of tablet 75 14:00: DAILY, [place] mg 00 First dose Medical on [facility] 03/24/20 at 0900, Until Discontinu ed, Routine insulin 2020-0 Yes 30U 30 Units, Unive rs glargine 03-24 Subcutaneo ity o f (LANTUS 14:00: us, DAILY, [place] U-100) 00 First dose Medical injection on [facility] 30 Units 03/24/20 at 0900, Until Discontinu ed clopidogreL 2019-0 Yes 75mg 75 mg, Univ ers (PLAVIX) 03-24 Oral, ity of tablet 75 14:00: DAILY, [place] mg 00 First dose Medical on [facility] 03/24/20 at 0900, Until Discontinu ed, Routine MULTIVITAMI 2019-0 2020- No Take by U nivers N ORAL 03-24 05-08 mouth. ity of 03:38: 00:00 [place] 54 :00 Medical Branch MULTIVITAMI 2020-0 Yes Take by Un mel N ORAL - mouth. ity of 02:01: [place] 35 Medical Branch atorvastati 2019-0 Yes 40mg 40 mg, Univ ers n (LIPITOR) 5- Oral, QHS, it y of tablet 40 02:00: First dose [place] mg 00 on [facility] 03/23/20 at Branch 2100, Until Discontinu ed, Routine atorvastati 2020-0 Yes 40mg 40 mg, Univ ers n (LIPITOR) 5-09 Oral, QHS, it y of tablet 40 02:00: First dose [place] mg 00 on Thu03/23/20 at Branch 2100, Until Discontinu ed, Routine aspirin 81 2020-0 Yes [id number] 81mg Take 1 U nivers mg chewable 5-09 tablet by ity of tablet 00:00: mouth [place] 00 daily with Medical breakfast. [facility] furosemide 2020-0 Yes [id number] 20mg Take 1 U nivers 20 mg 5-09 tablet by ity of tablet 00:00: mouth [place] 00 daily. [facility] aspirin 81 2020-0 Yes [id number] 81mg Take 1 U nivers mg chewable 5-09 tablet by ity of tablet 00:00: mouth [place] 00 daily with Medical breakfast. [facility] furosemide 2020-0 Yes [id number] 20mg Take 1 U nivers 20 mg 5-09 tablet by ity of tablet 00:00: mouth [place] 00 daily. [facility] aspirin 81 2020-0 Yes [id number] 81mg Take 1 U nivers mg chewable 5-09 tablet by ity of tablet 00:00: mouth [place] 00 daily with Medical breakfast. [facility] furosemide 2020-0 Yes [id number] 20mg Take 1 U nivers 20 mg 5-09 tablet by ity of tablet 00:00: mouth [place] 00 daily. [facility] aspirin 81 2020-0 Yes [id number] 81mg Take 1 U nivers mg chewable 5-09 tablet by ity of tablet 00:00: mouth [place] 00 daily with Medical breakfast. [facility] furosemide 2020-0 Yes [id number] 20mg Take 1 U nivers 20 mg 5-09 tablet by ity of tablet 00:00: mouth [place] 00 daily. [facility] aspirin 81 2020-0 Yes [id number] 81mg Take 1 U nivers mg chewable 5-09 tablet by ity of tablet 00:00: mouth [place] 00 daily with Medical breakfast. [facility] furosemide 2020-0 Yes [id number] 20mg Take 1 U nivers 20 mg 5-09 tablet by ity of tablet 00:00: mouth [place] 00 daily. [facility] aspirin 81 2020-0 Yes [id number] 81mg Take 1 U nivers mg chewable 5-09 tablet by ity of tablet 00:00: mouth [place] 00 daily with Medical breakfast. Branch furosemide 2020-0 Yes [id number] 20mg Take 1 U nivers 20 mg 5-09 tablet by ity of tablet 00:00: mouth [place] 00 daily. Medical Branch aspirin 81 2020-0 Yes [id number] 81mg Take 1 U nivers mg chewable 5-09 tablet by ity of tablet 00:00: mouth [place] 00 daily with Medical breakfast. Branch furosemide 2020-0 Yes [id number] 20mg Take 1 U nivers 20 mg 5-09 tablet by ity of tablet 00:00: mouth [place] 00 daily. Medical Branch aspirin 81 2020-0 Yes [id number] 81mg Take 1 U nivers mg chewable 5-09 tablet by ity of tablet 00:00: mouth [place] 00 daily with Medical breakfast. Branch furosemide 2020-0 Yes [id number] 20mg Take 1 U nivers 20 mg 5-09 tablet by ity of tablet 00:00: mouth [place] 00 daily. Medical Branch aspirin 81 2020-0 Yes [id number] 81mg Take 1 U nivers mg chewable 5-09 tablet by ity of tablet 00:00: mouth [place] 00 daily with Medical breakfast. Branch furosemide 2020-0 Yes [id number] 20mg Take 1 U nivers 20 mg 5-09 tablet by ity of tablet 00:00: mouth [place] 00 daily. Medical Branch aspirin 81 2020-0 202- No [id number] 81mg Take 1 Univers mg chewable 5-09 12-18 tablet by it y of tablet 00:00: 00:00 mouth [place] 00 :00 daily with Medical breakfast. Branch furosemide 2020-0 2021- No [id number] 20mg Take 1 Univers 20 mg 5-09 12-18 tablet by ity of tablet 00:00: 00:00 mouth [place] 00 :00 daily. Medical Branch isosorbide 2020-0 2020- No [id number] 90mg Take 3 Univers mononitrate 5- 05-08 tablets by i ty of 30 mg 24 hr 00:00: 00:00 mouth [place] tablet 00 :00 daily. Medical Branch isosorbide 2020-0 2020- No [id number] 90mg Take 3 Univers mononitrate 5-09 05-08 tablets by i ty of 30 mg 24 hr 00:00: 00:00 mouth [place] tablet 00 :00 daily. Medical Branch maalox/lido 2020-0 2020- No 5mL 5 mL, Univ ers sydni 2 5-08 05-08 Oral, ity of %viscous 20:45: 20:56 ONCE, 1 1:1 00 :00 dose, Fri Medical suspension 03/23/20 at [facility] (COMPOUNDED 1545, ) Routine maalox/lido 2020-0 2020- No 5mL 5 mL, Univ ers sydni 2 03-23- Oral, ity of %viscous 20:45: 20:56 ONCE, 1 1:1 00 :00 dose, Fri Medical suspension 03/23/20 at [facility] (COMPOUNDED 1545, ) Routine acetaminoph 2020-0 [...] :00 dose, Fri Medical (DEFINITY) 03/23/20 at [facility] injection 2 1030, mL Routine perflutren 2020-0 2020- No 2mL 2 mL, IV Un mel lipid 5-08 05-08 Push, ity of microsphere 15:30: 14:00 ONCE, [...] Fri Medical 03/23/20 at Branch 0330, Routine clopidogreL 2020-0 2020- No 300mg 300 mg, U nivers (PLAVIX) 03-23 05-08 Oral, ity of tablet 300 08:30: 07:48 ONCE, 1 [place] mg 00 :00 dose, Fri Medical 03/23/20 at Branch 0330, Routine morpHINE 2020-0 Yes 2mg 2 mg, Slow Uni vers injection 2 5-08 IV Push, ity of mg 07:59: Q4HPRN, [place] 14 Starting Medical Thu03/23/20 Branch at 0259, Until Discontinu ed, Routine, Chest pain morpHINE 2020-0 Yes 2mg 2 mg, Slow Uni vers injection 2 03-23 IV Push, ity of mg 07:59: Q4HPRN, [place] 14 Starting Medical 03/23/20 [facility] at 0259, Until Discontinu ed, Routine, Chest pain magnesium 2020-0 2020- No 2g 2 g, IV Univ ers sulfate in 03-23 Piggyback, it y of water 2 07:45: 07:49 ONCE, 1 [place] gram/50 mL 00 :00 dose, Fri Medi birdie (4 %) 03/23/20 at [facility] infusion 2 0245, g Routine KCL 2020-0 2020- No 40meq 40 mEq, Univers (KLOR-CON 03-23 Oral, ity of M20) tablet 07:45: 07:27 ONCE, 1 [place] 40 mEq 00 :00 dose, Fri Medical 03/23/20 at [facility] 0245, Routine magnesium 2020-0 2020- No 2g 2 g, IV Univ ers sulfate in 03-23 Piggyback, it y of water 2 07:45: 07:49 ONCE, 1 [place] gram/50 mL 00 :00 dose, Fri Medi birdie (4 %) 03/23/20 at [facility] infusion 2 0245, g Routine KCL 2020-0 2020- No 40meq 40 mEq, Univers (KLOR-CON 03-23 Oral, ity of M20) tablet 07:45: 07:27 ONCE, 1 [place] 40 mEq 00 :00 dose, Fri Medical 03/23/20 at [facility] 0245, Routine heparin 2020-0 Yes 12U/kg/ 12 [...] (refer to continuous heparin drip order).
memantine-d 2020-0 2020- No 1{capsu Take 1 Univers onepezil 03-23 le} capsule by ity of (NAMZARIC) 04:01: 00:00 mouth [place] 28-10 mg 03 :00 daily. Medical CSpX Branch folic 2020-0 2020- No Take by Univers acid/vit B 03-23 mouth. ity of complex and 04:01: 00:00 [place] C (B 03 :00 Medical COMPLEX-VIT Branch RAZA C-FOLIC ACID ORAL) Cholecalcif 2020-0 2020- No Take by U nivers ann, 03-23 mouth. ity of Vitamin D3, 04:01: 00:00 [place] 2,000 unit 03 :00 Medical capsule Branch thiamine 2020-0 2020- No 100mg Take 100 Uni vers (VITAMIN 5-08 05-07 mg by ity of B-1) 100 mg 04:01: 00:00 [place] tablet 03 :00 daily. Medical Branch NaCl 0.9% 2020-0 2020- No 10mL Inject 10 Un mel (NS) Soln - 05-07 mL ity of 10 mL with 04:01: 00:00 intravenou [place] sodium 03 :00 sly once Medical chloride now. Branch 2.5 mEq/mL SolP 17.125 mEq memantine-d 2019-0 2020- No 1{capsu Take 1 [...] Cholecalcif 2019-0 2020- No Take by U ulises benedictol, 03-23- mouth. ity of Vitamin D3, 04:01: 00:00 [place] 2,000 unit 03 :00 Medical capsule Branch thiamine 2019-0 2020- No 100mg Take 100 Uni vers (VITAMIN 03-23- mg by ity of B-1) 100 mg 04:01: 00:00 [place] tablet 03 :00 daily. Medical Branch NaCl 0.9% 2020-0 2020- No 10mL Inject 10 Un mel [...] tablet 650 29 Starting Medic al mg [facility] 03/22/20 Branch at 2151, Until Discontinu ed, Routine, Pain (scale 1-3) nitroglycer 2020-0 Yes .4mg 0.4 mg, Uni vers in 03-23 Sublingual ity of (NITROSTAT) 02:38: , Q5MIN [place] sublingual 00 PRN, 3 Medical tablet 0.4 doses, Branch mg Starting [facility] 03/22/20 at 2138, Until Discontinu ed, ADAMA, Chest pain nitroglycer 2020-0 Yes .4mg 0.4 mg, Uni vers in 03-23 Sublingual ity of (NITROSTAT) 02:38: , Q5MIN [place] sublingual 00 PRN, 3 Medical tablet 0.4 doses, Branch mg Starting [facility] 03/22/20 at 2138, Until Discontinu ed, ADAMA, Chest pain aspirin 2020-0 2020- No 324mg 324 mg, Unive rs chewable 03-23 05-08 Oral, ity of tablet 324 02:37: 02:51 ONCE, 1 [place] mg 00 :00 dose, [facility] 03/22/20 at Branch 2145, ADAMA aspirin 2020-0 2020- No 324mg 324 mg, Unive rs chewable 03-23 05-08 Oral, ity of tablet 324 02:37: 02:51 ONCE, 1 [place] mg 00 :00 dose, [facility] 03/22/20 at Branch 2145, ADAMA isosorbide 2020-0 Yes [id number] 90mg Take 1.5 Univers mononitrate 5-08 tablets by it y of 60 mg 24 hr 00:00: mouth [place] tablet 00 daily. [facility] isosorbide 2020-0 Yes [id number] 90mg Take 1.5 Univers mononitrate 5-08 tablets by it y of 60 mg 24 hr 00:00: mouth [place] tablet 00 daily. [facility] isosorbide 2020-0 Yes [id number] 90mg Take 1.5 Univers mononitrate 5-08 tablets by it y of 60 mg 24 hr 00:00: mouth [place] tablet 00 daily. [facility] isosorbide 2020-0 Yes [id number] 90mg Take 1.5 Univers mononitrate 5-08 tablets by it y of 60 mg 24 hr 00:00: mouth [place] tablet 00 daily. [facility] isosorbide 2020-0 Yes [id number] 90mg Take 1.5 Univers mononitrate 5-08 tablets by it y of 60 mg 24 hr 00:00: mouth [place] tablet 00 daily. Medical Branch isosorbide 2020-0 Yes [id number] 90mg Take 1.5 Univers mononitrate 5-08 tablets by it y of 60 mg 24 hr 00:00: mouth [place] tablet 00 daily. Medical Branch isosorbide 2020-0 Yes [id number] 90mg Take 1.5 Univers mononitrate 5-08 tablets by it y of 60 mg 24 hr 00:00: mouth [place] tablet 00 daily. Medical Branch isosorbide 2020-0 Yes [id number] 90mg Take 1.5 Univers mononitrate 5-08 tablets by it y of 60 mg 24 hr 00:00: mouth [place] tablet 00 daily. Medical Branch isosorbide 2020-0 Yes [id number] 90mg Take 1.5 Univers mononitrate 5-08 tablets by it y of 60 mg 24 hr 00:00: mouth [place] tablet 00 daily. [facility] Branch isosorbide 2020-0 2021- No [id number] 90mg Take 1.5 Univers mononitrate 5-08 12-18 tablets by i ty of 60 mg 24 hr 00:00: 00:00 mouth [place] tablet 00 :00 daily. [facility] Branch acetaminoph 2020-0 2020- No [id number] 975mg Take 3 Univers en 325 mg 5-08 05-19 tablets by ity of tablet 00:00: 04:59 mouth [place] 00 :00 every 8 Medical (eight) Branch hours for 10 days. acetaminoph 2020-0 2020- No [id number] 975mg Take 3 Univers en 325 mg 5-08 05-19 tablets by ity of tablet 00:00: 04:59 mouth [place] 00 :00 every 8 Medical (eight) Branch hours for 10 days. acetaminoph 2020-0 2020- No [id number] 975mg Take 3 Univers en 325 mg 5-08 05-19 tablets by ity of tablet 00:00: 04:59 mouth [place] 00 :00 every 8 Medical (eight) Branch hours for 10 days. acetaminoph 2020-0 2020- No [id number] 975mg Take 3 Univers en 325 mg 5-08 05-19 tablets by ity of tablet 00:00: 04:59 mouth [place] 00 :00 every 8 Medical (eight) Branch hours for 10 days. acetaminoph 2020- 2020- No [id number] 975mg Take 3 Univers en 325 mg 5-08 05-19 tablets by ity of tablet 00:00: 04:59 mouth [place] 00 :00 every 8 Medical (eight) Branch hours for 10 days. lidocaine 5 2019- 2020- No [id number] 1{patch Apply 1 Univers % (700 5-08 05-09 } Patch to ity of mg/patch) 00:00: 04:59 area(s) [place] patch 00 :00 once now Medical for 1 Branch dose. lidocaine 5 2019- 2020- No [id number] 1{patch Apply 1 Univers % (700 5-08 05-09 } Patch to ity of mg/patch) 00:00: 04:59 area(s) [place] patch 00 :00 once now Medical for 1 Branch dose. lidocaine 5 2020- No [id number] 1{patch Apply 1 Univers % (700 5-08 05-08 } Patch to ity of mg/patch) 00:00: 00:00 area(s[place] patch 00 :00 once now Medical for 1 Branch dose. lidocaine 5 2019- No [id number] 1{patch Apply 1 Univers % (700 5-08 05-08 } Patch to ity of mg/patch) 00:00: 00:00 area(s) [place] patch 00 :00 once now Medical for 1 Branch dose. glipiZIDE 2020-0 Yes 5mg 5 mg, Univers (GLUCOTROL) 4-23 Oral, ity of tablet 5 mg 14:00: DAILY, [place] 00 First dose Medical on [facility] Branch [facility]08[facility]20 [facility] 0900[facility]- 2020- No [id number] 12.5mg Take 0.5 Univers one 25 mg 4-23 05-24 tablets by ity of tablet 00:00: 04:59 mouth [place] 00 :00 daily for Medical 30 days. Branch spironolact 2020-0 2020- No [id number] 12.5mg Take 0.5 Univers one 25 mg 4-23 05-24 tablets by ity of tablet 00:00: 04:59 mouth [place] 00 :00 daily for Medical 30 days. Branch spironolact 2020- 2020- No [id number] 12.5mg Take 0.5 Univers one 25 mg 4-23 05-24 tablets by ity of tablet 00:00: 04:59 mouth [place] 00 :00 daily for Medical 30 days. Branch spironolact 2020-0 2020- No [id number] 12.5mg Take 0.5 Univers one 25 mg 4-23 05-07 tablets by ity of tablet 00:00: 00:00 mouth [place] 00 :00 daily for Medical 30 days. Branch spironolact 2019-0 2020- No [id number] 12.5mg Take 0.5 Univers one 25 mg 4-23 05-07 tablets by ity of tablet 00:00: 00:00 mouth [place] 00 :00 daily for Medical 30 days. Branch memantine-d 2020-0 Yes 1{capsu Take 1 U nivers onepezil 4-22 le} capsule by ity o f (NAMZARIC) 23:46: mouth [place] 28-10 mg 10 daily. Medical CSpX Branch folic 2019-0 Yes Take by Univers acid/vit B 4-22 mouth. ity of complex and 23:46: [facility] (B 10 Medical COMPLEX-VIT Branch RAZA C-FOLIC ACID ORAL) Cholecalcif 2019-0 Yes Take by Un mel ann, 4-22 mouth. ity of Vitamin D3, 23:46: [place] 2,000 unit 10 Medical capsule Branch MULTIVITAMI 2019-0 Yes Take by Un mel N ORAL 4-22 mouth. ity of 23:46: [place] [id number] Medical Branch thiamine 2020-0 Yes 100mg Take 100 Univ ers (VITAMIN 4-22 mg by ity of B-1) 100 mg 23:46: mouth [place] tablet 10 daily. Medical Branch NaCl 0.9% 2020-0 Yes 10mL Inject 10 Uni vers (NS) Soln 4-22 mL ity of 10 mL with 23:46: intravenou [place] sodium 10 sly once Medical chloride now. Branch 2.5 mEq/mL SolP 17.125 mEq memantine-d 2019-0 Yes 1{capsu Take 1 U nivers onepezil 4-22 le} capsule by ity o f (NAMZARIC) 23:46: mouth [place] 28-10 mg 10 daily. Medical CSpX Branch folic 2020-0 Yes Take by Univers acid/vit B 4-22 mouth. ity of complex and 23:46: [facility] (B 10 Medical COMPLEX-VIT Branch RAZA C-FOLIC ACID ORAL) Cholecalcif 2020-0 Yes Take by Un mel ann, - mouth. ity of Vitamin D3, 23:46: [place] [...] U nivers onepezil 03-07 le} capsule by itazra o f (NAMZARIC) 23:46: mouth [place] 28-10 mg 10 daily. Medical CSpX Branch folic 2020-0 Yes Take by Univers acid/vit B - mouth. ity of complex and 23:46: [place] C (B 10 Medical COMPLEX-VIT Branch RAZA C-FOLIC ACID ORAL) Cholecalcif 2020-0 Yes Take by Un mel ann, - mouth. ity of Vitamin D3, 23:46: [place] [...] 2020- No 12.5mg Take 12.5 Univers tartrate 4-22 04-22 mg by ity of 12.5 mg 20:15: 00:00 mouth 2 [place] 29 :00 (two) Medical times Branch daily. aspirin 81 2020-0 2020- No 81mg Take 81 mg Univers mg chewable -07 03- by mouth ity of tablet 20:15: 00:00 daily. [place] 29 :00 Medical Branch atorvastati 2020-0 2020- No 40mg Take 40 mg Univers n 40 mg -07 03-22 by mouth ity of tablet 20:15: 00:00 at [place] 29 :00 bedtime. Medical Branch temazepam 2020-0 Yes 15mg 15 mg, Univer s (RESTORIL) 4-22 Oral, ity of capsule 15 01:55: QHSPRN, [place] mg 38 Starting Medical Tue Branch 03/06/20 at 2055, Until Discontinu ed, Routine, Insomnia Insulin 2019-0 Yes [id number] 10U inject 10 Univers Glargine 4-22 Units ity of 100 unit/mL 00:00: under the [place] (3 mL) 00 skin at Medical injection bedtime. Branch temazepam 2020-0 Yes [id number] 15mg Take 1 Un mel 15 mg 4-22 capsule by ity of capsule 00:00: mouth at [place] 00 bedtime as Medical needed for Branch Insomnia. furosemide 2020-0 Yes [id number] 40mg Take 1 Univers 40 mg 4-22 tablet by ity of tablet 00:00: mouth [place] 00 every Medical morning Branch and evening. Magnesium 2020-0 Yes [id number] 400mg Take 400 Univers Oxide 420 4-22 mg by ity of mg Tab 00:00: mouth [place] 00 daily. Medical Branch potassium 2020-0 Yes [id number] 20meq Take 20 Univers chloride 20 4-22 mEq by ity of mEq packet 00:00: mouth [place] 00 daily. Medical Take with Branch lasix in the morning isosorbide 2020-0 Yes [id number] 15mg Take 0.5 Univers mononitrate 4-22 tablets by it y of 30 mg 24 hr 00:00: mouth [place] tablet 00 daily. Medical Hold if Branch systolic blood pressure less than 120 Insulin 2020-0 Yes [id number] 10U inject 10 Univers Glargine 4-22 Units ity of 100 unit/mL 00:00: under the [place] (3 mL) 00 skin at Medical injection bedtime. Branch temazepam 2020-0 Yes [id number] 15mg Take 1 Un mel 15 mg 4-22 capsule by ity of capsule 00:00: mouth at [place] 00 bedtime as Medical needed for Branch Insomnia. furosemide 2020-0 Yes [id number] 40mg Take 1 Univers 40 mg 4-22 tablet by ity of tablet 00:00: mouth [place] 00 every Medical morning Branch and evening. Magnesium 2020-0 Yes [id number] 400mg Take 400 Univers Oxide 420 4-22 mg by ity of mg Tab 00:00: mouth [place] 00 daily. Medical Branch potassium 2020-0 Yes [id number] 20meq Take 20 Univers chloride 20 4-22 mEq by ity of mEq packet 00:00: mouth [place] 00 daily. Medical Take with Branch lasix in the morning isosorbide 2020-0 Yes [id number] 15mg Take 0.5 Univers mononitrate 4-22 tablets by it y of 30 mg 24 hr 00:00: mouth [place] tablet 00 daily. Medical Hold if Branch systolic blood pressure less than 120 Insulin 2020-0 Yes [id number] 10U inject 10 Univers Glargine 4-22 Units ity of 100 unit/mL 00:00: under the [place] (3 mL) 00 skin at Medical injection bedtime. Branch temazepam 2020-0 Yes [id number] 15mg Take 1 Un mel 15 mg 4-22 capsule by ity of capsule 00:00: mouth at [place] 00 bedtime as Medical needed for Branch Insomnia. furosemide 2020-0 Yes [id number] 40mg Take 1 Univers 40 mg 4-22 tablet by ity of tablet 00:00: mouth [place] 00 every Medical morning Branch and evening. Magnesium 2020-0 Yes [id number] 400mg Take 400 Univers Oxide 420 4-22 mg by ity of mg Tab 00:00: mouth [place] 00 daily. Medical Branch potassium 2020-0 Yes [id number] 20meq Take 20 Univers chloride 20 4-22 mEq by ity of mEq packet 00:00: mouth [place] 00 daily. Medical Take with Branch lasix in the morning isosorbide 2020-0 Yes [id number] 15mg Take 0.5 Univers mononitrate 4-22 tablets by it y of 30 mg 24 hr 00:00: mouth [place] tablet 00 daily. Medical Hold if Branch systolic blood pressure less than 120 Insulin 2020-0 Yes [id number] 10U inject 10 Univers Glargine 4-22 Units ity of 100 unit/mL 00:00: under the [place] (3 mL) 00 skin at Medical injection bedtime. Branch Magnesium 2020-0 Yes [id number] 400mg Take 400 Univers Oxide 420 4-22 mg by ity of mg Tab 00:00: mouth [place] 00 daily. Medical Branch vitamin 2019- 2020- No [id number] 1000ug Take 1 Univers B-12 1,000 4-22 07-22 tablet by ity of mcg tablet 00:00: 04:59 mouth [place] 00 :00 daily for Medical 90 days. Branch vitamin 2019- 2020- No [id number] 1000ug Take 1 Univers B-12 1,000 4-22 07-22 tablet by ity of mcg tablet 00:00: 04:59 mouth [place] 00 :00 daily for Medical 90 days. Branch vitamin 2019- 2020- No [id number] 1000ug Take 1 Univers B-12 1,000 4-22 07-22 tablet by ity of mcg tablet 00:00: 04:59 mouth [place] 00 :00 daily for Medical 90 days. Branch vitamin 2019- 2020- No [id number] 1000ug Take 1 Univers B-12 1,000 4-22 07-22 tablet by ity of mcg tablet 00:00: 04:59 mouth [place] 00 :00 daily for Medical 90 days. Branch glipiZIDE 5 2020- No [id number] 2.5mg Take 0.5 Univers mg tablet 03-07-23 tablets by ity of 00:00: 04:59 mouth 2 [place] 00 :00 (two) Medical times Branch daily before breakfast and dinner for 30 days. metoprolol 2019- 2020- No [id number] 25mg Take 1 Univers succinate 03-07-23 tablet by ity of XL 25 mg 24 00:00: 04:59 mouth 2 [place] hr tablet 00 :00 (two) Medical times Branch daily for 30 days. OLANZapine 2019- 2020- No [id number] 2.5mg Take 1 Univers 2.5 mg -06 04-23 tablet by ity of tablet 00:00: 04:59 mouth at [place] 00 :00 bedtime Medical for 30 Branch days. ranolazine 2019- 2020- No [id number] 1000mg Take 2 Univers 500 mg 12 03-07-23 tablets by ity of hr tablet 00:00: 04:59 mouth [place] 00 :00 every 12 Medical (twelve) Branch hours for 30 days. aspirin 81 2019- 2020- No [id number] 81mg Take 1 Univers mg chewable 4-22 05-23 tablet by it y of tablet 00:00: 04:59 mouth [place] 00 :00 daily with Medical breakfast Branch for 30 days. atorvastati 2019- 2020- No [id number] 40mg Take 1 Univers n 40 mg 4-22 05-23 tablet by ity of tablet 00:00: 04:59 mouth at [place] 00 :00 bedtime Medical for 30 Branch days. glipiZIDE 5 2020- No [id number] 2.5mg Take 0.5 Univers mg tablet 4- 05-23 tablets by ity of 00:00: 04:59 mouth 2 [place] 00 :00 (two) Medical times Branch daily before breakfast and dinner for 30 days. metoprolol 2019- 2020- No [id number] 25mg Take 1 Univers succinate 4-22 05-23 tablet by ity of XL 25 mg 24 00:00: 04:59 mouth 2 [place] hr tablet 00 :00 (two) Medical times Branch daily for 30 days. OLANZapine 2019- 2020- No [id number] 2.5mg Take 1 Univers 2.5 mg 4-22 05-23 tablet by ity of tablet 00:00: 04:59 mouth at [place] 00 :00 bedtime Medical for 30 Branch days. ranolazine 2019- 2020- No [id number] 1000mg Take 2 Univers 500 mg 12 4-22 05-23 tablets by ity of hr tablet 00:00: 04:59 mouth [place] 00 :00 every 12 Medical (twelve) Branch hours for 30 days. aspirin 81 2019- 2020- No [id number] 81mg Take 1 Univers mg chewable 4-22 05-23 tablet by it y of tablet 00:00: 04:59 mouth [place] 00 :00 daily with Medical breakfast Branch for 30 days. atorvastati 2019-0 2020- No [id number] 40mg Take 1 Univers n 40 mg 4-22 05-23 tablet by ity of tablet 00:00: 04:59 mouth at [place] 00 :00 bedtime Medical for 30 Branch days. glipiZIDE 5 2019- 2020- No [id number] 2.5mg Take 0.5 Univers mg tablet 4-22 05-23 tablets by ity of 00:00: 04:59 mouth 2 [place] 00 :00 (two) Medical times Branch daily before breakfast and dinner for 30 days. metoprolol 2020-0 2020- No [id number] 25mg Take 1 Univers succinate 4-22 05-23 tablet by ity of XL 25 mg 24 00:00: 04:59 mouth 2 [place] hr tablet 00 :00 (two) Medical times Branch daily for 30 days. OLANZapine 2020-0 2020- No [id number] 2.5mg Take 1 Univers 2.5 mg 4-22 05-23 tablet by ity of tablet 00:00: 04:59 mouth at [place] 00 :00 bedtime Medical for 30 Branch days. ranolazine 2020-0 2020- No [id number] 1000mg Take 2 Univers 500 mg 12 4-22 05-23 tablets by ity of hr tablet 00:00: 04:59 mouth [place] 00 :00 every 12 Medical (twelve) Branch hours for 30 days. aspirin 81 2019-0 2020- No [id number] 81mg Take 1 Univers mg chewable - 05-23 tablet by it y of tablet 00:00: 04:59 mouth [place] 00 :00 daily with Medical breakfast Branch for 30 days. atorvastati 2019-0 2020- No [id number] 40mg Take 1 Univers n 40 mg - 05-23 tablet by ity of tablet 00:00: 04:59 mouth at [place] 00 :00 bedtime Medical for 30 Branch days. glipiZIDE 5 2019-0 2020- No [id number] 2.5mg Take 0.5 Univers mg tablet 03-07 05-23 tablets by ity of 00:00: 04:59 mouth 2 [place] 00 :00 (two) Medical times Branch daily before breakfast and dinner for 30 days. metoprolol 2019-0 2020- No [id number] 25mg Take 1 Univers succinate 4-22 05-23 tablet by ity of XL 25 mg 24 00:00: 04:59 mouth 2 [place] hr tablet 00 :00 (two) Medical times Branch daily for 30 days. ranolazine 2020-0 2020- No [id number] 1000mg Take 2 Univers 500 mg 12 4-22 05-23 tablets by ity of hr tablet 00:00: 04:59 mouth [place] 00 :00 every 12 Medical (twelve) Branch hours for 30 days. atorvastati 2020-0 2020- No [id number] 40mg Take 1 Univers n 40 mg 03-07-23 tablet by ity of tablet 00:00: 04:59 mouth at [place] 00 :00 bedtime Medical for 30 Branch days. furosemide 2019- No [id number] 40mg Take 1 Univers 40 mg 03-07-08 tablet by ity of tablet 00:00: 00:00 mouth [place] 00 :00 every Medical morning Branch and evening. aspirin 81 2019-2019- No [id number] 81mg Take 1 Univers mg chewable 03-07-08 tablet by it y of tablet 00:00: 00:00 mouth [place] 00 :00 daily with Medical breakfast Branch for 30 days. isosorbide 2019- No [id number] 15mg Take 0.5 Univers mononitrate 03-07- tablets by i ty of 30 mg 24 hr 00:00: 00:00 mouth [place] tablet 00 :00 daily. Medical Hold if Branch systolic blood pressure less than 120 Insulin 2019-2019- No [id number] 10U inject 10 Univers Glargine 03-07-08 Units ity of 100 unit/mL 00:00: 00:00 under the [place] (3 mL) 00 :00 skin at Medical injection bedtime. Branch glipiZIDE 5 2019- No [id number] 2.5mg Take 0.5 Univers mg tablet 03-07-08 tablets by ity of 00:00: 00:00 mouth 2 [place] 00 :00 (two) Medical times Branch daily before breakfast and dinner for 30 days. metoprolol 2019- No [id number] 25mg Take 1 Univers succinate 03-07-08 tablet by ity of XL 25 mg 24 00:00: 00:00 mouth 2 [place] hr tablet 00 :00 (two) Medical times Branch daily for 30 days. ranolazine 2019- No [id number] 1000mg Take 2 Univers 500 mg 12 03-07-08 tablets by ity of hr tablet 00:00: 00:00 mouth [place] 00 :00 every 12 Medical (twelve) Branch hours for 30 days. furosemide 2019-2019- No [id number] 40mg Take 1 Univers 40 mg 03-07-08 tablet by ity of tablet 00:00: 00:00 mouth [place] 00 :00 every Medical morning Branch and evening. aspirin 81 2019-2019- No [id number] 81mg Take 1 Univers mg chewable - 05-08 tablet by it y of tablet 00:00: 00:00 mouth [place] 00 :00 daily with Medical breakfast Branch for 30 days. atorvastati 2019- No [id number] 40mg Take 1 Univers n 40 mg - 05-08 tablet by ity of tablet 00:00: 00:00 mouth at [place] 00 :00 bedtime Medical for 30 Branch days. Magnesium 2019- No [id number] 400mg Take 400 Univers Oxide 420 - 05-08 mg by ity of mg Tab 00:00: 00:00 mouth [place] 00 :00 daily. Medical Branch vitamin 2019-2019- No [id number] 1000ug Take 1 Univers B-12 1,000 - 05-08 tablet by ity of mcg tablet 00:00: 00:00 mouth [place] 00 :00 daily for Medical 90 days. Branch isosorbide 2019- No [id number] 15mg Take 0.5 Univers mononitrate 03-07-08 tablets by i ty of 30 mg 24 hr 00:00: 00:00 mouth [place] tablet 00 :00 daily. Medical Hold if Branch systolic blood pressure less than 120 OLANZapine 2019- No [id number] 2.5mg Take 1 Univers 2.5 mg 03-07-07 tablet by ity of tablet 00:00: 00:00 mouth at [place] 00 :00 bedtime Medical for 30 Branch days. temazepam 2019- No [id number] 15mg Take 1 U nivers 15 mg 03-07-07 capsule by ity of capsule 00:00: 00:00 mouth at [place] 00 :00 bedtime as Medical needed for Branch Insomnia. potassium 2019- No [id number] 20meq Take 20 Univers chloride 20 - 05-07 mEq by ity o f mEq packet 00:00: 00:00 mouth [place] 00 :00 daily. Medical Take with Branch lasix in the morning OLANZapine 2019- No [id number] 2.5mg Take 1 Univers 2.5 mg - 05-07 tablet by ity of tablet 00:00: 00:00 mouth at [place] 00 :00 bedtime Medical for 30 Branch days. temazepam 2019- No [id number] 15mg Take 1 U nivers 15 mg 03-07-07 capsule by ity of capsule 00:00: 00:00 mouth at [place] 00 :00 bedtime as Medical needed for [facility] Insomnia. potassium 2019-0 2020- No [id number] 20meq Take 20 Univers chloride 20 03-07 05-07 mEq by ity o f mEq packet 00:00: 00:00 mouth [place] 00 :00 daily. Medical Take with Branch lasix in the morning isosorbide 2019- 2020- No 60mg 60 mg, Univ ers mononitrate 03-06-21 Oral, ity of (IMDUR) 24 14:00: 13:43 DAILY, [place] hr tablet 00 :56 First dose Medi birdie 60 mg on [facility] 03/06/20 at 0900, Until Discontinu ed, Routine OLANZapine 2020-0 Yes 2.5mg 2.5 mg, Uni vers (ZyPREXA) - Oral, QHS, ity of tablet 2.5 02:00: First dose [place] mg 00 on [facility] 03/05/20 at Branch 2100, Until Discontinu ed, Routine insulin 2020-0 Yes 10U 10 Units, [facility] rs glargine - Subcutaneo ity o f (LANTUS 02:00: us, QHS, [place] U-100) 00 First dose Medical injection on [facility] 10 Units 03/05/20 at 2100, Until Discontinu ed, Routine donepezil 2020-0 Yes 5mg 5 mg, Univers (ARICEPT) 03-06 Oral, QHS, ity of tablet 5 mg 02:00: First dose [place] 00 on [facility] 03/05/20 at Branch 2100, Until Discontinu ed, Routine atorvastati 2020-0 Yes 40mg 40 mg, Univ ers n (LIPITOR) - Oral, QHS, it y of tablet 40 02:00: First dose [place] mg 00 on [facility] 03/05/20 at Branch 2100, Until Discontinu ed, Routine isosorbide 2020-0 2020- No 30mg 30 mg, Univ ers mononitrate 03-05- Oral, ity of (IMDUR) 24 15:30: 15:21 ONCE, 1 [place] hr tablet 00 :00 dose, [facility] Medic al 30 mg 03/05/20 at Branch 1030, Routine spironolact 2020-0 Yes 12.5mg 12.5 mg, Univers one 4-20 Oral, ity of (ALDACTONE) 14:00: DAILY, [place] tablet 12.5 00 First dose Me dical mg on [facility] 03/05/20 at 0900, Until Discontinu ed, Routine memantine 2020-0 Yes 10mg 10 mg, Univer s (NAMENDA) 4-20 Oral, ity of tablet 10 14:00: DAILY, [place] mg 00 First dose Medical on [facility] 03/05/20 at 0900, Until Discontinu ed, Routine
community board member approving Restricted medication : MEGADC lisinopril 2020-0 2020- No 5mg 5 mg, Unive rs (PRINIVIL,Z 4-20 04-21 Oral, ity of ESTRIL) 14:00: 13:44 DAILY, [place] tablet 5 mg 00 :01 First dose Me dical on [facility] 03/05/20 at 0900, Until Discontinu ed, Routine isosorbide 2020-0 2020- No 30mg 30 mg, Univ ers mononitrate 4-20 04-20 Oral, ity of (IMDUR) 24 14:00: 14:20 DAILY, [place] hr tablet 00 :04 First dose Medi birdie 30 mg on [facility] 03/05/20 at 0900, Until Discontinu ed, Routine ranolazine 2020-0 Yes 500mg 500 mg, Uni vers (RANEXA) 12 4-20 Oral, ity of hr tablet 13:00: Q12H, [place] 500 mg 00 First dose Medical on [facility] 03/05/20 at 0800, Until Discontinu ed, Routine metoprolol 2020-0 Yes 25mg 25 mg, Unive rs succinate 4-20 Oral, BID, ity of XL (TOPROL 13:00: First dose [place] XL) tablet 00 on [facility] Medical 25 mg 03/05/20 at Branch 0800, Until Discontinu ed, Routine magnesium 2020-0 Yes 400mg 400 mg, Univ ers oxide 4-20 Oral, BID, ity of (MAG-OX 13:00: First dose [place] 400) tablet 00 on [facility] Medica l 400 mg 03/05/20 at Branch 0800, Until Discontinu ed, Routine aspirin 2020-0 Yes 81mg 81 mg, Univers chewable 4-20 Oral, QAM ity of tablet 81 13:00: WITH [place] mg 00 BREAKFAST, Medical First dose Branch on [facility] 03/05/20 at 0800, Until Discontinu ed, Routine Sliding 2020-0 Yes Subcutaneo Univ ers Scale 4-20 us, AC+HS, ity of Insulin-Reg 12:30: First dose [place] ular + Fsbg 00 on [facility] Medica l Testing 03/05/20 at Branch 0730, Until Discontinu ed, Routine glipiZIDE 2020-0 2020- No 5mg 5 mg, Univer s (GLUCOTROL) 4-20 04-22 Oral, ity of tablet 5 mg 12:30: 19:41 BIDAC, [place] 00 :44 First dose Medical on [facility] Branch 03/05/20 at 0730, Until Discontinu ed, Routine glucagon 2020-0 Yes 1mg 1 mg, Univers (GLUCAGEN 4-20 Intramuscu ity of DIAGNOSTIC 03:02: [place], PRN, [place] KIT) 42 Starting Medical injection 1 [place] Branch mg 03/04/20 at 2202, Until Discontinu ed, ADAMA, Blood Glucose < or = 70 mg/dL and patient is unable to swallow or has mental changes. dextrose 50 2020-0 Yes 25mL 25 mL, Univ ers % in water 4-20 Slow IV ity of (D50W) 03:02: Push, PRN, [place] injection 42 Starting Medica l 25 mL [facility] 03/04/20 at 2202, Until Discontinu ed, ADAMA, Blood Glucose < or = 70 mg/dL and patient is unable to swallow or has mental status changes. furosemide 2020-0 Yes 40mg 40 mg, Unive rs (LASIX) 4-20 Oral, ity of tablet 40 03:00: QAM+PM, [place] mg 00 First dose Medical on [place] [facility] 03/04/20 at 2200, Until Discontinu ed, Routine cyanocobala 2020-0 Yes 1000ug 1,000 mcg, Univers min 4-20 Subcutaneo ity of (VITAMIN 03:00: [place], Q24H, [place] B12) 00 First dose Medical injection on [facility], [facility] 1,000 mcg 03/04/20 at 2200, Until Discontinu ed, Routine heparin 2020-0 Yes 5000U 5,000 Univers (porcine) 4-20 Units, ity of injection 03:00: [place]cutaneo [place] 5,000 Units 00 us, Q8H, Medi birdie First dose Branch on [place] 03/04/20 at 2200, Until Discontinu ed, Routine ondansetron 2020-0 Yes 4mg 4 mg, Slow Univers (ZOFRAN 4-20 IV Push, ity of (PF)) 02:34: Q6HPRN, [place] injection 4 40 Starting Medi birdie mg [facility] 03/04/20 at 2134, Until Discontinu ed, Routine, Nausea and Vomiting (N/V) traMADol 2019-0 2020- No 50mg 50 mg, Univer s (ULTRAM) 4-20 04-22 Oral, ity of tablet 50 02:34: 02:33 Q8HPRN, [place] mg 23 :23 Starting Medical [facility] 03/04/20 at 2134, Until 03/06/20 at 2133, Routine, Pain (scale 4-6) acetaminoph 2020-0 Yes 650mg 650 mg, Un mel en 4-20 Oral, ity of (TYLENOL) 02:34: Q6HPRN, [place] tablet 650 20 Starting Medic al mg [facility] 03/04/20 at 2134, Until Discontinu ed, Routine, Pain (scale 1-3) lisinopril 2020-0 Yes [id number] 5mg Take 1 Univers 5 mg tablet 4-18 tablet by ity of 00:00: mouth [place] 00 daily. Medical Branch isosorbide 2020-0 Yes [id number] 30mg Take 1 Univers mononitrate 4-18 tablet by ity of 30 mg 24 hr 00:00: mouth [place] tablet 00 daily. [facility] Branch lisinopril 2020-0 Yes [id number] 5mg Take 1 Univers 5 mg tablet 4-18 tablet by ity of 00:00: mouth [place] 00 daily. [facility] Branch isosorbide 2020-0 Yes [id number] 30mg Take 1 Univers mononitrate 4-18 tablet by ity of 30 mg 24 hr 00:00: mouth [place] tablet 00 daily. [facility] Branch lisinopril 2020-0 2020- No [id number] 5mg Take 1 Univers 5 mg tablet 4-18 -22 tablet by it y of 00:00: 00:00 mouth [place] 00 :00 daily. Medical Branch isosorbide 2020-0 2020- No [id number] 30mg Take 1 Univers mononitrate 4-18 04-22 tablet by it y of 30 mg 24 hr 00:00: 00:00 mouth [place] tablet 00 :00 daily. Medical Branch memantine-d 2020-0 [...] 4-17 mouth. ity of Vitamin D3, 17:34: [place] 2,000 unit 27 Medical capsule Branch metoprolol 2020-0 Yes 12.5mg Take 12.5 Univers tartrate 4-17 mg by ity of 12.5 mg 17:34: mouth 2 [place] 27 (two) Medical times Branch daily. MULTIVITAMI 2020-0 Yes Take by Un mel N ORAL 4-17 mouth. ity of 17:34: [place] [address] Medical Branch thiamine 2020-0 Yes 100mg Take 100 Univ ers (VITAMIN 4-17 mg by ity of B-1) 100 mg 17:34: mouth [place] tablet 27 daily. Medical Branch aspirin 81 2020-0 Yes 81mg Take 81 mg U nivers mg chewable 4-17 by mouth ity of tablet 17:34: daily. [place] [address] Medical Branch atorvastati 2020-0 Yes 40mg Take [...] 4-17 mouth. ity of Vitamin D3, 17:34: [place] 2,000 unit 27 Medical capsule Branch metoprolol 2020-0 Yes 12.5mg Take 12.5 Univers tartrate 4-17 mg by ity of 12.5 mg 17:34: mouth 2 [place] 27 (two) Medical times Branch daily. MULTIVITAMI 2020-0 Yes Take by Un mel N ORAL 4-17 mouth. ity of 17:34: [place] [address] Medical Branch thiamine 2020-0 Yes 100mg Take 100 Univ ers (VITAMIN 4-17 mg by ity of B-1) 100 mg 17:34: mouth [place] tablet 27 daily. Medical Branch aspirin 81 2020-0 Yes 81mg Take 81 mg U nivers mg chewable 4-17 by mouth ity of tablet 17:34: daily. [place] [address] Medical Branch atorvastati 2020-0 Yes 40mg Take 40 mg Univers n 40 mg 4-17 by mouth ity of tablet 17:34: at [place] [address] bedtime. Medical Branch NaCl 0.9% 2020-0 Yes [...] mg 02:00: First dose [place] 00 on [facility] 03/01/20 at Branch 2100, Until Discontinu ed, Routine furosemide 2020-0 Yes [id number] 40mg Take 1 Univers 40 mg 4-17 tablet by ity of tablet 00:00: mouth [place] 00 every Medical morning Branch and evening. potassium 2020-0 Yes [id number] 20meq Take 20 Univers chloride 20 4-17 mEq by ity of mEq packet 00:00: mouth [place] 00 daily. Medical Branch vitamin 2020-0 Yes [id number] 1000ug Take 1 U nivers B-12 1,000 4-17 tablet by ity of mcg tablet 00:00: mouth [place] 00 daily. Medical Branch furosemide 2020-0 Yes [id number] 40mg Take 1 Univers 40 mg 4-17 tablet by ity of tablet 00:00: mouth [place] 00 every Medical morning Branch and evening. potassium 2020-0 Yes [id number] 20meq Take 20 Univers chloride 20 4-17 mEq by ity of mEq packet 00:00: mouth [place] 00 daily. Medical Branch vitamin 2020-0 Yes [id number] 1000ug Take 1 U nivers B-12 1,000 4-17 tablet by ity of mcg tablet 00:00: mouth [place] 00 daily. Medical Branch furosemide 2020-0 2020- No [id number] 40mg Take 1 Univers 40 mg 4-17 04-22 tablet by ity of tablet 00:00: 00:00 mouth [place] 00 :00 every Medical morning Branch and evening. potassium 2020-0 2020- No [id number] 20meq Take 20 Univers chloride 20 4-17 04-22 mEq by ity o f mEq packet 00:00: 00:00 mouth [place] 00 :00 daily. Medical Branch vitamin 2020-0 2020- No [id number] 1000ug Take 1 Univers B-12 1,000 4-17 04-22 tablet by ity of mcg tablet 00:00: 00:00 mouth [place] 00 :00 daily. Medical Branch cyanocobala 2020-0 Yes 1000ug 1,000 mcg, Univers min -16 Subcutaneo ity of (VITAMIN 20:45: [place], Q24H, [place] B12) 00 First dose Medical injection on [facility] Branch 1,000 mcg 03/01/20 at 1545, Until Discontinu ed, Routine isosorbide 2020-0 Yes 30mg 30 mg, Unive rs mononitrate 4-16 Oral, ity of (IMDUR) 24 14:00: DAILY, [place] hr tablet 00 First dose Medi birdie 30 [address] [facility] Branch 03/01/20 at 0900, Until Discontinu ed, Routine memantine 2020-0 Yes 10mg 10 mg, Univer s (NAMENDA) 4-16 Oral, ity of tablet 10 14:00: DAILY, [place] mg 00 First dose Medical on [facility] 03/01/20 at 0900, Until Discontinu ed, Routine
community board member approving Restricted medication : MEGADC lisinopril 2020-0 Yes 5mg 5 mg, Univer s (PRINIVIL,Z 03-01 Oral, ity of ESTRIL) 14:00: DAILY, [place] tablet 5 mg 00 First dose Me dical on [facility] 03/01/20 at 0900, Until Discontinu ed, Routine enoxaparin 2020-0 Yes 30mg 30 mg, Unive rs (LOVENOX) 16 Subcutaneo ity of injection 14:00: [place], DAILY, [place] 30 mg 00 First dose Medical on [facility] 03/01/20 at 0900, Until Discontinu ed, Routine KCL 2020-0 2020- No 20meq 20 mEq, Univers (KLOR-CON 03-01 Oral, ity of M20) tablet 14:00: 13:26 DAILY, [place] 20 mEq 00 :35 First dose Medical on [facility] 03/01/20 at 0900, Until Discontinu ed, Routine KCL 2020-0 Yes 40meq 40 mEq, Univers (KLOR-CON 16 Oral, BID, ity of M20) tablet 13:30: First dose [place] 40 mEq 00 on [facility] 03/01/20 at Branch 0830, Until Discontinu ed, Routine magnesium 2020-0 2020- No 2g 2 g, IV Univ ers sulfate in 03-01 Infusion, ity of water 2 03:30: 03:30 ONCE, 1 [place] gram/50 mL 00 :00 dose, Thu [facility] birdie (4 %) 2 g 02/29/20 at [facility] piggyback 2230 metoprolol 2020-0 2020- No 5mg 5 mg, Slow Univers (LOPRESSOR) 03-01 IV Push, ity of injection 5 03:30: 03:37 ONCE, 1 [place] mg 00 :00 dose, [facility] 02/29/20 at Branch 2230, ADAMA glipiZIDE 2020-0 Yes 5mg 5 mg, Univers (GLUCOTROL) 03-01 Oral, ity of tablet 5 mg 02:45: BIDAC, [place] 00 First dose Medical on [facility] 02/29/20 at 2145, Until Discontinu ed, Routine insulin 2020-0 Yes 10U 10 Units, Unive rs glargine 4-16 Subcutaneo ity o f (LANTUS 02:45: us, QHS, [place] U-100) 00 First dose Medical injection on Thu Branch 10 Units 02/29/20 at 2145, Until [...] 2020-0 Yes 12.5mg 12.5 mg, Univers one -16 Oral, ity of (ALDACTONE) 02:30: DAILY, [place] [...] Branch 2130, Until Discontinu ed, Routine furosemide 2019-0 Yes 40mg 40 mg, Unive rs (LASIX) -16 Slow IV ity of injection 02:30: Push, [place] 40 mg 00 Q12H, Medical First dose Branch on Thu02/29/20 at 2130, Until Discontinu ed, Routine KCL 2019-0 2020- No 40meq 40 mEq, Univers (KLOR-CON 03-01-16 Oral, ity of M20) tablet 01:00: 02:05 ONCE, 1 [place] 40 mEq 00 :00 dose, [facility] Medical 02/29/20 at Branch 2000, Routine acetaminoph 2019-0 Yes 650mg 650 mg, Un mel en 15 Oral, ity of (TYLENOL) 23:57: Q6HPRN, [place] tablet 650 25 Starting Medic al mg [facility] 02/29/20 at 1857, Until Discontinu ed, Routine, Pain (scale 1-3) NaCl 0.9% 0 2020- No 500mL at 999 Univ ers (NS) bolus 02-28-15 mL/hr, 500 it y of infusion 23:30: 23:37 mL, IV [place] 500 mL 00 :00 Infusion, Medical ONCE, 1 Branch dose, Thu02/29/20 at 1830, ADAMA acetaminoph 2019-0 2019- No 650mg 650 mg, U nivers en 02-28-15 Oral, ity of (TYLENOL) 23:00: 22:36 ONCE, 1 [place] tablet 650 00 :00 dose, Thu Medi birdie mg 02/29/20 at Branch 1800, ADAMA donepezil 5 2019-0 Yes 5mg Take 5 mg U nivers mg tablet 02-14 by mouth ity of 00:00: daily. [place] [facility] donepezil 5 2019-0 2020- No 5mg Take 5 mg Univers mg tablet 02-1408 by mouth ity o f 00:00: 00:00 daily. [place] 00 :00 [facility] nitroglycer 2019-0 2020- No DISSOLVE U nivers in 0.4 mg 02-1407 ONE TABLET ity of sublingual 00:00: 00:00 [...] 00 :00 daily. Medical Branch nitroglycer 2019-0 2020- No DISSOLVE U nivers in 0.4 mg 02-14- ONE TABLET ity of sublingual 00:00: 00:00 [...] by mouth ity of tablet 23:00: daily. [place] 52 Medical Branch atorvastati 2020-0 Yes 40mg Take 40 mg Univers n 40 mg 3-03 by mouth ity of tablet 23:00: at [place] [address] bedtime. Medical Branch NaCl 0.9% 2020-0 Yes [...] by ity of mEq packet 23:00: mouth [place] 52 daily. Medical Branch Cholecalcif 2020-0 Yes Take by Un mel ann, 3-03 mouth. ity of Vitamin D3, 23:00: [place] 2,000 [place] [address] Medical capsule Branch metoprolol 2020-0 Yes 12.5mg Take 12.5 Univers tartrate 3-03 mg by ity of 12.5 mg 23:00: mouth 2 [place] 52 (two) Medical times Branch daily. MULTIVITAMI 2020-0 Yes Take by Un mel N ORAL 3-03 mouth. ity of 23:00: [place] [address] Medical Branch thiamine 2020-0 Yes 100mg Take 100 Univ ers (VITAMIN 3-03 mg by ity of B-1) 100 mg 23:00: mouth [place] tablet 52 daily. Medical Branch aspirin 81 2020-0 Yes 81mg Take 81 mg U nivers mg chewable 3-03 by mouth ity of tablet 23:00: daily. [place] [address] Medical Branch atorvastati 2020-0 Yes 40mg Take 40 mg Univers n 40 mg 3-03 by mouth ity of tablet 23:00: at [place] [address] bedtime. Medical Branch NaCl 0.9% 2020-0 Yes [...] N ORAL 3-03 mouth. ity of 23:00: [place] [address] Medical Branch thiamine 2020-0 Yes 100mg Take 100 Univ ers (VITAMIN 3-03 mg by ity of B-1) 100 mg 23:00: mouth [place] tablet 52 daily. Medical Branch aspirin 81 2020-0 Yes 81mg Take 81 mg U nivers mg chewable 3-03 by mouth ity of tablet 23:00: daily. [place] [address] Medical Branch atorvastati 2020-0 Yes 40mg Take 40 mg Univers n 40 mg 3-03 by mouth ity of tablet 23:00: at [place] 52 bedtime. Medical Branch NaCl 0.9% 2020-0 [...] 3-03 mouth. ity of Vitamin D3, 23:00: [place] 2,000 unit 52 Medical capsule Branch metoprolol 2020-0 Yes 12.5mg Take 12.5 Univers tartrate 3-03 mg by ity of 12.5 mg 23:00: mouth 2 [place] 52 (two) Medical times Branch daily. MULTIVITAMI 2020-0 Yes Take by Un mel N ORAL 3-03 mouth. ity of 23:00: [place] [address] Medical Branch thiamine 2020-0 Yes 100mg Take 100 Univ ers (VITAMIN 3-03 mg by ity of B-1) 100 mg 23:00: mouth [place] tablet 52 daily. Medical Branch aspirin 81 2020-0 Yes 81mg Take 81 mg U nivers mg chewable 3-03 by mouth ity of tablet 23:00: daily. [place] [address] Medical Branch atorvastati 2020-0 Yes 40mg Take 40 mg Univers n 40 mg 3-03 by mouth ity of tablet 23:00: at [place] 52 bedtime. Medical Branch NaCl 0.9% 2020-0 Yes 10mL Inject 10 Uni vers (NS) Soln 3-03 mL ity of 10 mL with 23:00: intravenou [place] sodium 52 sly once Medical chloride now. Branch 2.5 mEq/mL SolP 17.125 mEq atorvastati 2020-0 Yes 40mg 40 mg, Univ ers n (LIPITOR) 3-03 Oral, QHS, it y of tablet 40 03:00: First dose [place] mg 00 on Thu [facility] 01/16/20 at Branch 2100, Until Discontinu ed, Routine ranolazine 2020-0 2020- No [id number] 500mg Take 1 Univers 500 mg 12 3-03 04-03 tablet by ity of hr tablet 00:00: 04:59 mouth [place] 00 :00 every 12 Medical (twelve) Branch hours for 30 days. ranolazine 2019-0 2020- No [id number] 500mg Take 1 Univers 500 mg 01-16 tablet by ity of hr tablet 00:00: 04:59 mouth [place] 00 :00 every 12 Medical (twelve) Branch hours for 30 days. ranolazine 2020-0 2020- No [id number] 500mg Take 1 Univers 500 mg 12 01-16- tablet by ity of hr tablet 00:00: 04:59 mouth [place] 00 :00 every 12 Medical (twelve) Branch hours for 30 days. ranolazine 2020-0 2020- No [id number] 500mg Take 1 Univers 500 mg 01-16 tablet by ity of hr tablet 00:00: 04:59 mouth [place] 00 :00 every 12 Medical (twelve) Branch hours for 30 days. ranolazine 2020-0 Yes 500mg 500 mg, Uni vers (RANEXA) 12 01-15 Oral, ity of hr tablet 22:30: Q12H, [place] 500 mg 00 First dose Medical on [facility] 01/16/20 at 1630, Until Discontinu ed, Routine insulin 2020-0 Yes 30U 30 Units, Unive rs glargine 01-15 Subcutaneo ity o f (LANTUS 15:00: us, DAILY, [place] U-100) 00 First dose Medical injection on [facility] 30 Units 01/16/20 at 0900, Until Discontinu ed furosemide 2020-0 Yes 40mg 40 mg, Unive rs (LASIX) 01-15 Oral, ity of tablet 40 15:00: DAILY, [place] mg 00 First dose Medical on [facility] 01/16/20 at 0900, Until Discontinu ed, Routine aspirin 2020-0 Yes 81mg 81 mg, Univers chewable 01-15 Oral, ity of tablet 81 15:00: DAILY, [place] mg 00 First dose Medical on [facility] 01/16/20 at 0900, Until Discontinu ed, Routine metoprolol 2020-0 Yes 12.5mg 12.5 mg, U nivers tartrate 01-15 Oral, BID, ity o f (LOPRESSOR) 14:00: First dose [place] tablet 12.5 00 on [facility] Medica l mg 01/16/20 at Branch 0800, Until Discontinu ed, Routine Sliding 2020-0 Yes Subcutaneo Univ ers Scale 3-02 us, Q6H, ity of Insulin-Reg 12:00: First dose [place] ular + Fsbg 00 on Mon Medica l Testing 01/16/20 at Branch 0600, [...] IV ity of (D50W) 10:52: Push, PRN, [place] injection 33 Starting Medica l 25 mL [...] IV Push, ity of (PF)) 07:55: Q6HPRN, [place] injection 4 01 Starting Medi birdie mg 01/16/20 Branch at 0155, Until Discontinu ed, Routine, Nausea and Vomiting (N/V) morpHINE 2019-0 2020- No 2mg 2 mg, Slow Un mel injection 2 01-15 03-03 IV Push, ity of mg 07:54: 07:53 [facility], [place] 55 :55 Starting Medical 01/16/20 Branch at 0154, Until 01/17/20 at 0153, Routine, Pain (scale 7-10) traMADol 2019-0 2020- No 50mg 50 mg, Univer s (ULTRAM) 01-15 03-04 Oral, ity of tablet 50 07:54: 07:53 Q8HPRN, [place] mg 47 :47 Starting Medical 01/16/20 Branch at 0154, Until 01/18/20 at 0153, Routine, Pain (scale 4-6) acetaminoph 2020-0 Yes 650mg 650 mg, Un mel en 3-02 Oral, ity of (TYLENOL) 07:54: Q6HPRN, [place] tablet 650 44 Starting Medic al mg 01/16/20 Branch at 0154, Until Discontinu ed, Routine, Pain (scale 1-3) insulin 2019-0 2020- No 8U 8 Units, Unive rs regular - 03-02 Slow IV ity of human 06:45: [...] 0.45 % CONTINUOUS weight , Starting based 01/16/20 dosing [facility] at 0000, protocol Until Discontinu ed heparin 2020-0 2020- No 4000U 4,000 Univers 1000 01-15 03-02 Units, IV ity of unit/mL 05:45: 05:47 Push, [place] injection 00 :00 ONCE, 1 Medical Soln 4,000 dose, [place] [facility] Units 01/15/20 at 2345, ADAMA furosemide 2018-11 Yes [id number] 40mg Take 1 Univers 40 mg 0-26 tablet by ity of tablet 00:00: mouth [place] 00 daily. Medical Branch furosemide 2018-11 Yes [id number] 40mg Take 1 Univers 40 mg 0-26 tablet by ity of tablet 00:00: mouth [place] 00 daily. Medical Branch furosemide 2018-11 Yes [id number] 40mg Take 1 Univers 40 mg 0-26 tablet by ity of tablet 00:00: mouth [place] 00 daily. Medical Branch furosemide 2018-11 Yes [id number] 40mg Take 1 Univers 40 mg 0-26 tablet by ity of tablet 00:00: mouth [place] 00 daily. Medical Branch furosemide 2018-11 2020- No [id number] 40mg Take 1 Univers 40 mg 0-26 04-17 tablet by ity of tablet 00:00: 00:00 mouth [place] 00 :00 daily. [facility] Branch magnesium 2019-1 Yes [id number] 400mg Take 400 Univers oxide 420 0-23 mg by ity of mg Tab 00:00: mouth [place] 00 daily. Medical Branch magnesium 2019-1 Yes [id number] 400mg Take 400 Univers oxide 420 0-23 mg by ity of mg Tab 00:00: mouth [place] 00 daily. Medical Branch magnesium 2019-1 Yes [id number] 400mg Take 400 Univers oxide 420 0-23 mg by ity of mg Tab 00:00: mouth [place] 00 daily. Medical Branch magnesium 2019-1 Yes [id number] 400mg Take 400 Univers oxide 420 0-23 mg by ity of mg Tab 00:00: mouth [place] 00 daily. [facility] Branch magnesium 2019-1 Yes [id number] 400mg Take 400 Univers oxide 420 0-23 mg by ity of mg Tab 00:00: mouth [place] 00 daily. [facility] Branch magnesium 2019-1 Yes [id number] 400mg Take 400 Univers oxide 420 0-23 mg by ity of mg Tab 00:00: mouth [place] 00 daily. [facility] Branch magnesium 2019-1 2020- No [id number] 400mg Take 400 Univers oxide 420 0-23 04-22 mg by ity of mg Tab 00:00: 00:00 mouth [place] 00 :00 daily. [facility] Insulin 2019-0 Yes [id number] 30U inject 30 Univers Glargine 9-11 Units ity of 100 unit/mL 00:00: under the [place] (3 mL) 00 skin every Medical injection morning. Branch Insulin 2019-0 Yes [id number] 30U inject 30 Univers Glargine 9-11 Units ity of 100 unit/mL 00:00: under the [place] (3 mL) 00 skin every Medical injection morning. Branch Insulin 2019-0 Yes [id number] 30U inject 30 Univers Glargine 9-11 Units ity of 100 unit/mL 00:00: under the [place] (3 mL) 00 skin every Medical injection morning. Branch Insulin 2019-0 Yes [id number] 30U inject 30 Univers Glargine 9-11 Units ity of 100 unit/mL 00:00: under the [place] (3 mL) 00 skin every Medical injection morning. Branch Insulin 2019-0 Yes [id number] 30U inject 30 Univers Glargine 9-11 Units ity of 100 unit/mL 00:00: under the [place] (3 mL) 00 skin every Medical injection morning. Branch Insulin Yes [id number] 30U inject 30 Univers Glargine 9-11 Units ity of 100 unit/mL 00:00: under the [place] (3 mL) 00 skin every Medical injection morning. Branch Insulin Yes [id number] 30U inject 30 Univers Glargine 9-11 Units ity of 100 unit/mL 00:00: under the [place] (3 mL) 00 skin every Medical injection morning. Branch Insulin 2020- No [id number] 30U inject 30 Univers Glargine 9-11 04-22 [...] mg under ity of 15:26: the skin. [place] [address] Medical Branch Cholecalcif Yes Take by Un mel ann, 5-10 mouth. ity of Vitamin D3, 15:26: [place] 2,000 unit 43 Medical capsule Branch metoprolol Yes 12.5mg Take 12.5 Univers tartrate 5-10 mg by ity of 12.5 mg 15:26: mouth 2 [place] 43 (two) Medical times Branch daily. MULTIVITAMI Yes Take by Un mel N ORAL 5-10 mouth. ity of 15:26: [place] [address] Medical Branch thiamine Yes 100mg Take 100 Univ ers (VITAMIN 5-10 mg by ity of B-1) 100 mg 15:26: mouth [place] tablet 43 daily. Medical Branch aspirin 81 Yes 81mg Take 81 mg U nivers mg chewable 5-10 by mouth ity of tablet 15:26: daily. [place] [address] Medical Branch atorvastati Yes 40mg Take 40 mg Univers n 40 mg 5-10 by mouth ity of tablet 15:26: at [place] [address] bedtime. Medical Branch furosemide Yes 40mg Take 40 mg U nivers 40 mg 5-10 by mouth ity of tablet 15:26: daily. [place] [address] Medical Branch NaCl 0.9% Yes 10mL Inject 10 Uni vers (NS) [...] mg under ity of 15:26: the skin. [place] [address] Medical Branch Cholecalcif 0 Yes Take by Un mel ann, 5-10 mouth. ity of Vitamin D3, 15:26: [place] 2,000 unit Medical capsule Branch metoprolol 0 Yes 12.5mg Take 12.5 Univers tartrate 5-10 mg by ity of 12.5 mg 15:26: mouth 2 [place] [address] (two) Medical times Branch daily. MULTIVITAMI 0 Yes Take by Un mel N ORAL 5-10 mouth. ity of 15:26: [place] [address] Medical Branch thiamine 0 Yes 100mg Take 100 Univ ers (VITAMIN 5-10 mg by ity of B-1) 100 mg 15:26: mouth [place] tablet 43 daily. Medical Branch aspirin 81 Yes 81mg Take 81 mg U nivers mg chewable 5-10 by mouth ity of tablet 15:26: daily. [place] [address] Medical Branch atorvastati 0 Yes 40mg Take 40 mg Univers n 40 mg 5-10 by mouth ity of tablet 15:26: at [place] [address] bedtime. Medical Branch furosemide 0 Yes 40mg Take 40 mg U nivers 40 mg 5-10 by mouth ity of tablet 15:26: daily. [place] [address] Medical Branch NaCl 0.9% 0 Yes 10mL Inject 10 Uni vers (NS) Soln 5-10 mL ity of 10 mL with 15:26: intravenou [place] sodium 43 sly once Medical chloride now. Branch 2.5 mEq/mL SolP 17.125 mEq insulin 2018-0 Yes [id number] 4U inject 4 U nivers lispro, 5-10 Units ity of human, 100 00:00: under the [place] unit/mL 00 skin 3 Medical injection (three) Branch times daily before meals. insulin 2018-0 Yes [id number] 4U inject 4 U nivers lispro, 5-10 Units ity of human, 100 00:00: under the [place] unit/mL 00 skin 3 Medical injection (three) Branch times daily before meals. insulin 2018-0 Yes [id number] 4U inject 4 U nivers lispro, 5-10 Units ity of human, 100 00:00: under the [place] unit/mL 00 skin 3 Medical injection (three) Branch times daily before meals. insulin 2018-0 Yes [id number] 4U inject 4 U nivers lispro, 5-10 Units ity of human, 100 00:00: under the [place] unit/mL 00 skin 3 Medical injection (three) Branch times daily before meals. insulin 2018-0 Yes [id number] 4U inject 4 U nivers lispro, 5-10 Units ity of human, 100 00:00: under the [place] unit/mL 00 skin 3 Medical injection (three) Branch times daily before meals. insulin 2018-0 Yes [id number] 4U inject 4 U nivers lispro, 5-10 Units ity of human, 100 00:00: under the [place] unit/mL 00 skin 3 Medical injection (three) Branch times daily before meals. Insulin 2018-0 Yes [id number] 18U inject Uni vers Glargine 5-10 18-24 ity of 100 unit/mL 00:00: Units [place] (3 mL) 00 under the Medical injection skin every Bran ch morning. insulin 2018-0 Yes [id number] 4U inject 4 U nivers lispro, 5-10 Units ity of human, 100 00:00: under the [place] unit/mL 00 skin 3 Medical injection (three) Branch times daily before meals. insulin 2018-0 Yes [id number] 4U inject 4 U nivers lispro, 5-10 Units ity of human, 100 00:00: under the [place] unit/mL 00 skin 3 Medical injection (three) Branch times daily before meals. insulin Yes [id number] 4U inject 4 U nivers lispro, 5-10 Units ity of human, 100 00:00: under the [place] unit/mL 00 skin 3 Medical injection (three) Branch times daily before meals. insulin Yes [id number] 4U inject 4 U nivers lispro, 5-10 Units ity of human, 100 00:00: under the [place] unit/mL 00 skin 3 Medical injection (three) Branch times daily before meals. insulin Yes [id number] 4U inject 4 U nivers lispro, 5-10 Units ity of human, 100 00:00: under the [place] unit/mL 00 skin 3 Medical injection (three) Branch times daily before meals. insulin 2020- No [id number] 4U inject 4 Univers lispro, 5-10 05-07 Units ity of human, 100 00:00: 00:00 under the [place] unit/mL 00 :00 skin 3 Medical injection (three) Branch times daily before meals. insulin 2019- No [id number] 4U inject 4 Univers lispro, 5-10 05-07 Units ity of human, 100 00:00: 00:00 under the [place] unit/mL 00 :00 skin 3 Medical injection (three) Branch times daily before meals. Insulin 2019- No [id number] 18U inject Un mel Glargine 5- 09-11 18-24 ity of 100 unit/mL 00:00: 00:00 Units [place] (3 mL) 00 :00 under the Medical injection skin every ch morning. folic Yes Take by Univers acid/vit B 3-08 mouth. ity of complex and 16:39: [place] C ( 29 Medical COMPLEX-VIT Branch RAZA C-FOLIC ACID ORAL) potassium Yes 20meq Take 20 Univ ers chloride 20 3-08 mEq by ity of mEq packet 16:39: mouth 29 daily. Medical Branch folic Yes Take by Univers acid/vit B 3-08 mouth. ity of complex and 16:39: [place] C (B 29 Medical COMPLEX-VIT Branch RAZA C-FOLIC ACID ORAL) potassium 2019-0 Yes 20meq Take 20 Univ ers chloride 20 3-08 mEq by ity of mEq packet 16:39: mouth [place] 29 daily. [facility] Potassium Potassium Yes [...] l [facility] Aspir-Low Aspir-Low Yes Annelisee [address] [facility] [...] Immunizations Ordered Filled Immunization Date Status Comments [facility] e Immunization Name Name SARS-COV-2 COVID-19 2021-09-16 Completed Unive rsity of MODERNA VACCINE 00:00:00 [facility] SARS-COV-2 COVID-19 2021-09-16 Completed Unive rsity of MODERNA VACCINE 00:00:00 [facility] SARS-COV-2 COVID-19 2021-09-16 Completed Unive rsity of MODERNA VACCINE 00:00:00 [facility] SARS-COV-2 COVID-19 2021-08-17 Completed Unive rsity of MODERNA VACCINE 00:00:00 [facility] Influenza High Dose 2021-08-17 Completed Unive rsity of 00:00:00 [facility] SARS-COV-2 COVID-19 2021-08-17 Completed Unive rsity of MODERNA VACCINE 00:00:00 [facility] Influenza High Dose 2021-08-17 Completed Unive rsity of 00:00:00 [facility] SARS-COV-2 COVID-19 2021-08-17 Completed Unive rsity of MODERNA VACCINE 00:00:00 [facility] Influenza High Dose 2021-08-17 Completed Unive rsity of 00:00:00 [facility] Zoster(Zostavax)( 2020-09-14 Completed Unive rsity of ingles) 00:00:00 [facility] Zoster(Zostavax)( 2020-09-14 Completed Unive rsity of ingles) 00:00:00 [facility] Zoster(Zostavax)( 2020-09-14 Completed Unive rsity of ingles) 00:00:00 [facility] Influenza High Dose 2020-07-13 Completed Unive rsity of 00:00:00 [facility] Influenza High Dose 2020-07-13 Completed Unive rsity of 00:00:00 [facility] Influenza High Dose 2020-07-13 Completed Unive rsity of 00:00:00 [facility] Influenza High Dose 2019-09-15 Completed Unive rsity of 00:00:00 [facility] Influenza High Dose 2019-09-15 Completed Unive rsity of 00:00:00 [facility] Influenza High Dose 2019-09-15 Completed Unive rsity of 00:00:00 [facility] Influenza Virus 2018-09-09 Completed Universit y of Vaccine 00:00:00 [facility] Influenza Virus 2018-09-09 Completed Universit y of Vaccine 00:00:00 [facility] Influenza Virus 2018-09-09 Completed Universit y of Vaccine 00:00:00 [facility] Influenza Virus 2018-09-09 Completed Universit y of Vaccine 00:00:00 [facility] Influenza Virus 2018-09-09 Completed Universit y of Vaccine 00:00:00 [facility] Influenza Virus 2018-09-09 Completed Universit y of Vaccine 00:00:00 [facility] Influenza Virus 2018-09-09 Completed Universit y of Vaccine 00:00:00 [facility] Influenza Virus 2018-09-09 Completed Universit y of Vaccine 00:00:00 [facility] Influenza Virus 2018-09-09 Completed Universit y of Vaccine 00:00:00 [facility] Influenza Virus 2018-09-09 Completed Universit y of Vaccine 00:00:00 [facility] Influenza Virus 2018-09-09 Completed Universit y of Vaccine 00:00:00 [facility] Influenza Virus 2018-09-09 Completed Universit y of Vaccine 00:00:00 [facility] Influenza Virus 2018-09-09 Completed Universit y of Vaccine 00:00:00 [facility] Influenza Virus 2018-09-09 Completed Universit y of Vaccine 00:00:00 [facility] Influenza Virus 2018-09-09 Completed Universit y of Vaccine 00:00:00 [facility] Influenza Virus 2018-09-09 Completed Universit y of Vaccine 00:00:00 [facility] Influenza Virus 2018-09-09 Completed Universit y of Vaccine 00:00:00 [facility] Influenza Virus 2018-09-09 Completed Universit y of Vaccine 00:00:00 [facility] Influenza Virus 2018-09-09 Completed Universit y of Vaccine 00:00:00 [facility] Influenza Virus 2018-09-09 Completed Universit y of Vaccine 00:00:00 [facility] Influenza Virus 2018-09-09 Completed Universit y of Vaccine 00:00:00 [facility] Pneumococcal 2016-11-02 Completed University o f Polysaccharide, [...] 17:17:00 109 mm[Hg] Univer sity of pressure [place] [facility] Diastolic blood 2021-11-02 17:17:00 67 mm[Hg] Unive rsity of pressure [place] [facility] Heart rate 2021-11-02 17:17:00 84 /min [facility]i ty [facility] [place] [facility] Body temperature 2021-11-02 17:17:00 36.44 Priyanka Univ ersity of [place] [facility] Respiratory rate 2021-11-02 17:17:00 18 /min Univ ersity of [place] [facility] Oxygen saturation in 2021-11-02 17:17:00 95 /min University of Arterial blood by [place] [facility] birdie Pulse oximetry Branch Body weight 2021-11-02 09:17:00 79.969 kg [facility] [place] [facility] BMI 2021-11-02 09:17:00 27.61 kg/m2 [facility] [place] [facility] Body height 2021-10-31 05:46:00 170.2 cm [facility] [place] [facility] Systolic blood 2021-04-25 22:36:00 118 mm[Hg] Univer sity of pressure [place] [facility] Diastolic blood 2021-04-25 22:36:00 70 mm[Hg] Unive rsity of pressure [place] [facility] Heart rate 2021-04-25 22:36:00 68 /min [facility] [place] [facility] Respiratory rate 2021-04-25 22:36:00 18 /min Univ ers[facility] [place] [facility] Oxygen saturation in 2021-04-25 22:36:00 99 /min University of Arterial blood by [place] [facility] birdie Pulse oximetry Branch Body temperature 2021-04-25 15:42:00 36.44 Priyanka Univ ers[facility] of [place] [facility] Body weight 2021-04-25 15:42:00 81.647 kg [facility] [place] [facility] BMI 2021-04-25 15:42:00 27.37 kg/m2 [facility] [place] [facility] Systolic blood 2020-06-26 10:00:00 124 mm[Hg] Univer sity of pressure [place] [facility] Diastolic blood 2020-06-26 10:00:00 78 mm[Hg] Unive rsity of pressure [place] [facility] Respiratory rate 2020-06-26 10:00:00 18 /min Univ ers[facility] [place] [facility] Oxygen saturation in 2020-06-26 10:00:00 98 /min University of Arterial blood by [place] [facility] birdie Pulse oximetry Branch Heart rate 2020-06-26 08:56:00 98 /min [facility]i ty of [place] [facility] Body temperature 2020-06-26 08:56:00 37.17 Priyanka Univ ersity of [place] [facility] Body weight 2020-06-26 08:56:00 74.844 kg [facility] [place] [facility] BMI 2020-06-26 08:56:00 25.09 kg/m2 [facility] [place] [facility] Systolic blood 2020-06-26 10:00:00 124 mm[Hg] Univer sity of pressure [place] [facility] Diastolic blood 2020-06-26 10:00:00 78 mm[Hg] Unive rsity of pressure [place] [facility] Respiratory rate 2020-06-26 10:00:00 18 /min Univ ersity of [place] [facility] Oxygen saturation in 2020-06-26 10:00:00 98 /min University of Arterial blood by [place] [facility] birdie Pulse oximetry Branch Heart rate 2020-06-26 08:56:00 98 /min [facility] [place] [facility] Body temperature 2020-06-26 08:56:00 37.17 Priyanka Univ ers[facility] of [place] [facility] Body weight 2020-06-26 08:56:00 74.844 kg [facility] [place] [facility] BMI 2020-06-26 08:56:00 25.09 kg/m2 [facility] [place] [facility] Systolic blood 2020-05-24 15:47:29 166 mm[Hg] Univer sity of pressure [place] [facility] Diastolic blood 2020-05-24 15:47:29 89 mm[Hg] Unive rsity of pressure [place] [facility] Heart rate 2020-05-24 15:47:29 86 /min Universi ty of [place] [facility] Respiratory rate 2020-05-24 15:47:29 16 /min Univ ersity of [place] [facility] Oxygen saturation in 2020-05-24 15:47:29 97 /min University of Arterial blood by [place] [facility] birdie Pulse oximetry Branch Body temperature 2020-05-24 11:44:00 36.94 Priyanka Univ ers[facility] of [place] [facility] Body height 2020-05-24 11:44:00 172.7 cm [facility] [place] [facility] Body weight 2020-05-24 11:44:00 74.844 kg [facility] [place] [facility] BMI 2020-05-24 11:44:00 25.09 kg/m2 [facility] [place] [facility] Systolic blood 2020-05-24 15:47:29 166 mm[Hg] Univer sity of pressure [place] [facility] Diastolic blood 2020-05-24 15:47:29 89 mm[Hg] Unive rsity of pressure [place] [facility] Heart rate 2020-05-24 15:47:29 86 /min Universi ty of [place] [facility] Respiratory rate 2020-05-24 15:47:29 16 /min Univ ersity of [place] [facility] Oxygen saturation in 2020-05-24 15:47:29 97 /min University of Arterial blood by [facility] Pulse oximetry Branch Body temperature 2020-05-24 11:44:00 36.94 Priyanka Univ ers[facility] of [place] [facility] Body height 2020-05-24 11:44:00 172.7 cm [facility]i [facility] [place] [facility] Body weight 2020-05-24 11:44:00 74.844 kg [facility]i [facility] [place] [facility] BMI 2020-05-24 11:44:00 25.09 kg/m2 Universi ty of [facility] Systolic blood 2020-03-24 02:31:00 127 mm[Hg] Univer sity of pressure [place] [facility] Diastolic blood 2020-03-24 02:31:00 72 mm[Hg] Unive rsity of pressure [place] [facility] Heart rate 2020-03-24 02:31:00 69 /min [facility] [place] [facility] Body temperature 2020-03-24 02:31:00 36.39 Priyanka Univ ers[facility] of [place] [facility] Respiratory rate 2020-03-24 02:31:00 18 /min Univ ersity of [place] [facility] Oxygen saturation in 2020-03-24 02:31:00 97 /min University of Arterial blood by [facility] Pulse oximetry Branch Systolic blood 2020-03-23 21:35:00 100 mm[Hg] Univer sity of pressure [place] [facility] Diastolic blood 2020-03-23 21:35:00 59 mm[Hg] Unive rsity of pressure [place] [facility] Heart rate 2020-03-23 21:35:00 79 /min [facility] [place] [facility] Body temperature 2020-03-23 21:35:00 36.78 Priyanka Univ ers[facility] of [place] [facility] Respiratory rate 2020-03-23 21:35:00 18 /min Univ ersity of [place] [facility] Oxygen saturation in 2020-03-23 21:35:00 99 /min University of Arterial blood by [facility] birdie Pulse oximetry Branch Body weight 2020-03-23 09:41:00 76.613 kg [facility]i ty [facility] [place] [facility] BMI 2020-03-23 09:41:00 26.45 kg/m2 Universi ty [facility] [place] [facility] Body height 2020-03-23 03:43:00 170.2 cm [facility]i ty [facility] [place] [facility] Systolic blood 2020-03-21 20:55:00 128 mm[Hg] Univer sity of pressure [place] [facility] Diastolic blood 2020-03-21 20:55:00 61 mm[Hg] Unive rsity of pressure [place] [facility] Heart rate 2020-03-21 20:55:00 75 /min Universi ty of [facility] Respiratory rate 2020-03-21 20:55:00 10 /min Univ ersity of [facility] Oxygen saturation in 2020-03-21 20:55:00 98 /min University of Arterial blood by [facility] Pulse oximetry Branch Body temperature 2020-03-21 20:03:00 37.83 Priyanka [facility] [place] [facility] Body height 2020-03-21 20:03:00 170.2 cm [facility] [place] [facility] Body weight 2020-03-21 20:03:00 76.204 kg [facility] [place] [facility] BMI 2020-03-21 20:03:00 26.31 kg/m2 [facility] [place] [facility] Systolic blood 2020-03-07 20:50:00 118 mm[Hg] Univer sity of pressure [facility] Diastolic blood 2020-03-07 20:50:00 65 mm[Hg] Unive rsity of pressure [place] [facility] Heart rate 2020-03-07 20:50:00 85 /min [facility]i ty [facility] [place] [facility] Body temperature 2020-03-07 20:50:00 36.39 Priyanka Univ ersity of [facility] Respiratory rate 2020-03-07 20:50:00 18 /min Univ ersity of [facility] Oxygen saturation in 2020-03-07 20:50:00 95 /min University of Arterial blood by [facility] Pulse oximetry Branch Body height 2020-03-05 02:35:00 172.7 cm [facility] [place] [facility] Body weight 2020-03-05 02:35:00 73.483 kg [facility] [place] [facility] BMI 2020-03-05 02:35:00 24.63 kg/m2 Universi ty of [facility] Systolic blood 2020-03-02 15:49:00 122 mm[Hg] Univer sity of pressure [facility] Diastolic blood 2020-03-02 15:49:00 81 mm[Hg] Unive rsity of pressure [facility] Heart rate 2020-03-02 15:49:00 89 /min Universi ty of [facility] Body temperature 2020-03-02 15:49:00 37.06 Priyanka Univ ersity of [facility] Respiratory rate 2020-03-02 15:49:00 19 /min Univ ersity of [facility] Oxygen saturation in 2020-03-02 15:49:00 96 /min University of Arterial blood by [place] [facility] birdie Pulse oximetry Branch Body height 2020-03-01 00:54:00 170.2 cm Universi ty of [facility] Body weight 2020-03-01 00:54:00 76.975 kg Universi ty of [facility] BMI 2020-03-01 00:54:00 26.58 kg/m2 Universi ty of [facility] Systolic blood 2020-01-17 21:08:00 116 mm[Hg] Univer sity of pressure [facility] Diastolic blood 2020-01-17 21:08:00 78 mm[Hg] Unive rsity of pressure [facility] Heart rate 2020-01-17 21:08:00 88 /min Universi ty of [facility] Body temperature 2020-01-17 21:08:00 36.72 Priyanka Univ ersity of [facility] Respiratory rate 2020-01-17 21:08:00 18 /min Univ ersity of [facility] Oxygen saturation in 2020-01-17 21:08:00 98 /min University of Arterial blood by [place] [facility] Pulse oximetry Branch Body height 2020-01-16 06:21:00 172.7 cm Universi ty of [facility] Body weight 2020-01-16 04:35:00 83.462 kg Universi ty of [facility] BMI 2020-01-16 04:35:00 27.98 kg/m2 Universi ty of [facility] Procedures Procedure Date / Time Performing Clinician Source Performed EXTERNAL PROVIDER RECORDS 2021-11-19 06:01:00 Doctor Unassigned, [facility] [place] [facility] POCT GLUCOSE (AUTOMATED) 2021-11-02 22:49:00 [place], Aida Nilda [facility] POCT GLUCOSE (AUTOMATED) 2021-11-02 17:06:00 Alyssa Aida Munguia [facility] POCT GLUCOSE (AUTOMATED) 2021-11-02 13:30:00 Aida Shah Nilda [facility] TROPONIN I 2021-11-02 09:29:00 Alexandra Hdz [facility] BASIC METABOLIC PANEL 2021-11-02 09:29:00 Sridhar Gordon [facility] (NA, K, CL, CO2, GLUCOSE, Medica l Branch BUN, CREATININE, CA) CBC WITH DIFF 2021-11-02 09:29:00 Heidi [facility] N-TERMINAL PRO-BNP 2021-11-02 09:29:00 Alexandra Hdz [facility] POCT GLUCOSE (AUTOMATED) 2021-11-02 01:27:00 Alyssa Aida Nilda [facility] POCT GLUCOSE (AUTOMATED) 2021-11-01 17:37:00 Alyssa Aida Munguia [facility] POCT GLUCOSE (AUTOMATED) 2021-11-01 13:40:00 Alyssa Aida Nilda [facility] POCT GLUCOSE (AUTOMATED) 2021-11-01 01:10:00 Alyssa Aida Nilda [facility] POCT GLUCOSE (AUTOMATED) 2021-10-31 22:28:00 Alyssa Aida [facility] POCT GLUCOSE (AUTOMATED) 2021-10-31 17:29:00 [facility] 2021-10-31 16:25:00 Alexandra Hdz [facility] TRANSTHORACIC ECHO (TTE) 2021-10-31 15:53:00 Alexandra Hdz [facility] COMPLETE W/ CONTRAST [facility] POCT GLUCOSE (AUTOMATED) 2021-10-31 13:39:00 [facility] 2021-10-31 10:08[facility]OLIC [facility] 2021-10-31 10:08:00 [facility] (NA, K, CL, CO2, GLUCOSE, Medica l Branch BUN, CREATININE, CA) LIPID PANEL ([id number])(TOTAL 2021-10-31 10:08:00 Alexandra Hdz [facility]IG[facility], HDL) CBC WITH DIFF 2021-10-31 10:08:00 [facility] URINALYSIS 2021-10-31 10:08:00 [facility] N-TERMINAL PRO-BNP 2021-10-31 10:08:00 Alexandra Hdz [facility] TROPONIN I 2021-10-31 06:17:00 [facility] CHEST 1 VW 2021-10-31 01:30:56 Martha Drake [facility] LIPASE 2021-10-31 01:25:00 Martha Drake [facility] TROPONIN I 2021-10-31 01:25:00 Martha Drake [facility] COMP. METABOLIC PANEL 2021-10-31 01:25:00 Martha Drake [facility] ([id number]) [facility] CBC WITH DIFF 2021-10-31 01:25:00 Martha Drake [facility] GLYCOSYLATED HEMOGLOBIN 2021-10-31 01:25:[facility] PROTHROMBIN TIME / INR 2021-10-31 01:25:[address] [facility] ACTIVATED PARTIAL 2021-10-31 01:25:00 Martha Drake [facility]-BNP 2021-10-31 01:25:00 Martha Drake [facility] COVID-19 (ID NOW RAPID 2021-10-31 01:25:00 Martha Drake [facility] TESTING) Medical Branch LAB ONLY COVID 2021-10-31 01:25:00 Martha Drake [facility] INTERPRETATION [facility] HB ECG ROUTINE & RHYTHM 2021-10-31 01:20:03 Martha Drake [facility] STRIP [facility] URINALYSIS 2021-04-25 21:01:00 Nallely Zhao [facility] XR LUMBAR SPINE 2 VW 2021-04-25 18:41:00 Nallely Zhao [facility] XR HIPS 2 VW LEFT 2021-04-25 18:41:00 Nallely Zhao [facility] CONSENT/REFUSAL FOR 2021-04-25 15:43:06 Doctor Unassigned, [facility] DIAGNOSIS AND TREATMENT [place] [facility] CT CERVICAL SPINE WO 2020-06-26 09:35:01 Martha Drake [facility] CONTRAST [facility] CT LUMBAR SPINE WO 2020-06-26 09:35:01 Martha Drake [facility] CONTRAST [facility] CT THORACIC SPINE WO 2020-06-26 09:35:01 Martha Drake [facility] UNILATERAL DUPLEX SCAN OF 2020-05-24 14:53:40 Charanjit Heck [facility] ARTERY BY VASCULAR LAB [facility] [place] [facility] XR ANKLE 3+ VW LEFT 2020-05-24 13:22:26 Charanjit Heck [facility] HEPATIC FUNCTION PANEL 2020-05-24 13:13:00 Charanjit Heck [facility] ([id number]) (ALB,T.PRO,BILI [facility] T,BU/BC,ALT,AST,ALK PHOS) BASIC METABOLIC PANEL 2020-05-24 13:13:00 Charanjit Heck [facility] (NA, K, CL, CO2, GLUCOSE, Medica l Branch BUN, CREATININE, CA) CBC WITH DIFFERENTIAL 2020-05-24 13:13:00 Charanjit Heck [facility] PROTHROMBIN TIME / INR 2020-05-24 13:13:00 Charanjit Heck [facility] ACTIVATED PARTIAL 2020-05-24 13:13:00 Charanjit Heck [facility] NOTICE OF PRIVACY 2020-05-24 11:38:26 Doctor Unassigned, [facility] PRACTICES [place] [facility] CONSENT/REFUSAL FOR 2020-05-24 11:35:52 Doctor Unassigned, [facility] DIAGNOSIS AND TREATMENT [place] [facility] POCT GLUCOSE (AUTOMATED) 2020-03-23 22:32:00 Jamel Flores Uni [facility] POCT GLUCOSE (AUTOMATED) 2020-03-23 18:07:00 Jamel Flores Uni [facility] POCT GLUCOSE (AUTOMATED) 2020-03-23 14:57:00 Jamel Flores [facility] ECHO ROUTINE W/DOPPLER 2020-03-23 13:33:57 Tereza Cano [facility] EKG-12 LEAD 2020-03-23 12:56:59 Jamel Flores [facility] MAGNESIUM 2020-03-23 11:15:00 Jerome [facility] TROPONIN I 2020-03-23 11:15:00 Jerome [facility] BASIC METABOLIC PANEL 2020-03-23 11:15:00 [facility] (NA, K, CL, CO2, GLUCOSE, Medica l Branch BUN, CREATININE, CA) PROTHROMBIN TIME / INR 2020-03-23 11:15:00 Tereza Cano [facility] ACTIVATED PARTIAL 2020-03-23 11:15:00 [facility] 2020-03-23 07:51:19 Jamel Flores [facility] MAGNESIUM 2020-03-23 05:55:00 Jerome [facility] TROPONIN I 2020-03-23 05:55:00 Jerome [facility] BASIC METABOLIC PANEL 2020-03-23 05:55:00 [facility] (NA, K, CL, CO2, GLUCOSE, Medica l Branch BUN, CREATININE, CA) LIPID PANEL ([id number])(TOTAL 2020-03-23 05:55:00 Tereza Cano [facility] CHOLESTEROL, [facility] TRIGLYCERIDES, HDL) PROTHROMBIN TIME / INR 2020-03-23 02:55:00 Sallie Eckert [facility] ACTIVATED PARTIAL 2020-03-23 02:55:00 Sallie Eckert [facility] THRMPLAS [facility] XR CHEST 2 VW 2020-03-23 01:52:37 Hayder [facility] CORONAVIRUS COVID-19 2020-03-23 00:50:00 Esteban Singletary [facility] TESTING [facility] FERRITIN SERUM 2020-03-22 23:36:00 Jerome [facility] TROPONIN I 2020-03-22 23:36:00 Hayder [facility] COMP. METABOLIC PANEL 2020-03-22 23:36:00 Hayder Esteban [facility] ([id number] [place] [address] IRON PANEL 2020-03-22 23:36:00 Jerome [facility] CBC WITH DIFFERENTIAL 2020-03-22 23:36:00 Hayder [facility] N-TERMINAL PRO-BNP 2020-03-22 23:36:00 Esteban Singletary [facility] EKG-12 LEAD 2020-03-22 23:08:53 [facility] 2020-03-22 23:08:15 Hayder [facility] XR CHEST 1 VW 2020-03-21 20:42:35 Myles Harry [facility] LACTIC ACID WHOLE BLOOD 2020-03-21 20:38:00 Myles Harry [facility] LIPASE 2020-03-21 20:19:00 Myles Harry [facility] TROPONIN I 2020-03-21 20:19:00 Myles Harry [facility] COMP. METABOLIC PANEL 2020-03-21 20:19:00 yMles Harry [facility] ([id number]) [facility] PROTHROMBIN TIME / INR 2020-03-21 20:19:[address] [facility] N-TERMINAL PRO-BNP 2020-03-21 20:19:00 Myles Harry [facility] CORONAVIRUS COVID-19 2020-03-21 20:19:00 Myles Harry [facility] EKG-12 LEAD 2020-03-21 20:11:28 Myles Harry [facility] POCT GLUCOSE (AUTOMATED) 2020-03-07 20:56:00 Julio Cesar [employer] [facility] POCT GLUCOSE (AUTOMATED) 2020-03-07 15:34:00 Edconsuelo [employer] [facility] POCT GLUCOSE (AUTOMATED) 2020-03-07 12:56:00 Julio Csear [facility] [employer] [facility] URIC ACID 2020-03-07 10:14:00 Holland Briscoe [facility] TROPONIN I 2020-03-07 10:14:00 Steven [facility] BASIC METABOLIC PANEL 2020-03-07 10:14:00 [employer] [facility] (NA, K, CL, CO2, GLUCOSE, Medica l Branch BUN, CREATININE, CA) CBC WITH DIFFERENTIAL 2020-03-07 10:14:00 Julio Cesar [facility] N-TERMINAL PRO-BNP 2020-03-07 10:14:00 Steven Lulu [facility] POCT GLUCOSE (AUTOMATED) 2020-03-06 21:16:00 Julio Cesar [facility] [facility] POCT GLUCOSE (AUTOMATED) 2020-03-06 16:10:00 Julio Cesar FieldEZ [facility] POCT GLUCOSE (AUTOMATED) 2020-03-06 12:38:00 Julio Cesar [facility] TROPONIN I 2020-03-06 08:51:00 [facility] BASIC METABOLIC PANEL 2020-03-06 08:51:00 [facility] (NA, K, CL, CO2, GLUCOSE, Medica l Branch BUN, CREATININE, CA) CBC WITH DIFFERENTIAL 2020-03-06 08:51:00 [facility] POCT GLUCOSE (AUTOMATED) 2020-03-06 01:16:00 Julio Cesar [facility] TROPONIN I 2020-03-05 23:25:00 Julio Cesar [facility] POCT GLUCOSE (AUTOMATED) 2020-03-05 21:14:[address] [facility] POCT GLUCOSE (AUTOMATED) 2020-03-05 16:39:[address] [facility] POCT GLUCOSE (AUTOMATED) 2020-03-05 12:47:[address] [facility] TROPONIN I 2020-03-05 09:50:00 [facility] BASIC METABOLIC PANEL 2020-03-05 09:50:00 [facility] (NA, K, CL, CO2, GLUCOSE, Medica l Branch BUN, CREATININE, CA) CBC WITH DIFFERENTIAL 2020-03-05 09:50:00 [facility] EKG-12 LEAD 2020-03-05 00:36:54 [facility] 2020-03-05 00:31:03 [facility] CORONAVIRUS COVID-19 2020-03-05 00:03:00 Charanjit Heck [facility] XR CHEST 1 VW 2020-03-04 23:58:59 Charanjit Heck [facility] LIPASE 2020-03-04 23:29:00 Charanjit Heck [facility] TROPONIN I 2020-03-04 23:29:00 Umang Charanjit [facility] HEPATIC FUNCTION PANEL 2020-03-04 23:29:00 Charanjit Heck [facility] ([id number]) (ALB,T.PRO,BILI Medical Branch T,BU/BC,ALT,AST,ALK PHOS) BASIC METABOLIC PANEL 2020-03-04 23:29:00 Charanjit Heck [facility] (NA, K, CL, CO2, GLUCOSE, Medica l Branch BUN, CREATININE, CA) CBC WITH DIFFERENTIAL 2020-03-04 23:29:00 Charanjit Heck [facility] PROTHROMBIN TIME / INR 2020-03-04 23:29:00 Charanjit Heck [facility] ACTIVATED PARTIAL 2020-03-04 23:29:00 Charanjit Heck [facility] THRMPLAS [facility] N-TERMINAL PRO-BNP 2020-03-04 23:29:00 Charanjit Heck [facility] EKG-12 LEAD 2020-03-04 23:15:42 Charanjit Heck [facility] EKG-12 LEAD 2020-03-04 23:10:23 Umang Charanjit [facility] EMERGENCY DEPARTMENT 2020-03-04 05:01:00 Doctor Unassigned, [facility] DOCUMENTS [place] [facility] POCT GLUCOSE (AUTOMATED) 2020-03-02 15:52:00 Lulu Harris [facility] POCT GLUCOSE (AUTOMATED) 2020-03-02 12:39:00 Lulu Harris [facility] MAGNESIUM 2020-03-02 08:57:00 [facility] BASIC METABOLIC PANEL 2020-03-02 08:57:00 Carolyn alek [facility] (NA, K, CL, CO2, GLUCOSE, Medica l Branch BUN, CREATININE, CA) N-TERMINAL PRO-BNP 2020-03-02 08:57:00 Carolyn [facility] POCT GLUCOSE (AUTOMATED) 2020-03-01 20:39:00 Lulu Harris [facility] MAGNESIUM 2020-03-01 08:43:00 Lulu Harris [facility] TROPONIN I 2020-03-01 08:43:00 [facility] BASIC METABOLIC PANEL 2020-03-01 08:43:00 Lulu Harris [facility] (NA, K, CL, CO2, GLUCOSE, Medica l Branch BUN, CREATININE, CA) CBC WITH DIFFERENTIAL 2020-03-01 08:43:00 Lulu Harris [facility] N-TERMINAL PRO-BNP 2020-03-01 08:43:00 Carolyn [facility] VITAMIN B12, LEVEL 2020-03-01 03:49:00 Carolyn [facility] FOLATE 2020-03-01 03:49:00 [facility] SEDIMENTATION RATE 2020-03-01 03:49:00 Carolyn [facility] POCT GLUCOSE (AUTOMATED) 2020-03-01 03:39:00 Lulu Harris [facility] PHOSPHORUS 2020-03-01 02:28:00 Lulu Harris [facility] URIC ACID 2020-03-01 02:28:00 [facility] TROPONIN I 2020-03-01 02:28:00 [facility] HEPATIC FUNCTION PANEL 2020-03-01 02:28:00 Carolyn alek [facility] ([id number]) (ALB,T.PRO,[facility] T,BU/BC,ALT,AST,ALK PHOS) PROTHROMBIN TIME / INR 2020-03-01 02:28:00 Carolyn alek [facility] N-TERMINAL PRO-BNP 2020-03-01 02:28:00 Lulu Harris [facility] PROCALCITONIN 2020-03-01 02:28:00 [facility] EKG-12 LEAD 2020-03-01 01:54:29 [facility] EKG-12 LEAD 2020-02-29 23:16:21 Bobo Urrutia [facility] XR CHEST 1 VW COVID 2020-02-29 23:14:25 Bobo Urrutia [facility] EKG-12 LEAD 2020-02-29 23:13:50 Bobo Urrutia [facility] LACTIC ACID WHOLE BLOOD 2020-02-29 22:21:[address] [facility] CORONAVIRUS COVID-19 2020-02-29 22:20:00 Bobo Urrutia [facility] CREATINE KINASE 2020-02-29 22:14:00 Ivory Leon [facility] URIC ACID 2020-02-29 22:14:00 Carolyn alek [facility] LIPASE 2020-02-29 22:14:00 Bobo Urrutia [facility] MAGNESIUM 2020-02-29 22:14:00 Carolyn alek [facility] TROPONIN I 2020-02-29 22:14:00 Bobo Urrutia [facility] THYROID STIMULATING 2020-02-29 22:14:00 Ivory Leon [facility] HORMONE [facility] BASIC METABOLIC PANEL 2020-02-29 22:14:00 Bobo Urrutia [facility] (NA, K, CL, CO2, GLUCOSE, Medica l Branch BUN, CREATININE, CA) CBC WITH DIFFERENTIAL 2020-02-29 22:14:00 Bobo Urrutia [facility] GLYCOSYLATED HEMOGLOBIN 2020-02-29 22:14:00 Carolyn alek [facility] (A1C) [facility] N-TERMINAL PRO-BNP 2020-02-29 22:14:00 Ivory Leon [facility] EKG-12 LEAD 2020-02-29 21:59:12 Bobo Urrutia [facility] EKG-12 LEAD 2020-02-29 21:48:49 Bobo Urrutia [facility] EMERGENCY DEPARTMENT 2020-02-29 05:01:00 Doctor Unassigned, [facility] DOCUMENTS [place] [facility] POCT GLUCOSE (AUTOMATED) 2020-01-17 18:15:00 Sarah Adorno [facility] TROPONIN I 2020-01-17 16:31:00 Julio Cesar [facility] ACTIVATED PARTIAL 2020-01-17 16:31:00 Carolyn alek [facility] ([facility]OMATED) 2020-01-17 11:56:00 Sarah Adorno [facility] TROPONIN I 2020-01-17 09:52:00 Julio Cesar [facility] BASIC METABOLIC PANEL 2020-01-17 09:52:00 [facility] (NA, K, CL, CO2, GLUCOSE, Medica l Branch BUN, CREATININE, CA) CBC WITH DIFFERENTIAL 2020-01-17 09:52:00 [facility] 2020-01-17 09:52:00 [facility] ([facility]OMATED) 2020-01-16 23:59:00 [facility]12 [facility] 2020-01-16 22:15:50 [facility] 2020-01-16 20:04:00 [facility] ACTIVATED PARTIAL 2020-01-16 20:04:00 Kael [facility] POCT GLUCOSE (AUTOMATED) 2020-01-16 17:05:00 [facility] PO[facility] GLUCOSE (AUTOMATED) 2020-01-16 13:38:00 [facility] 2020-01-16 11:11:00 [facility] LIPID PANEL ([id number])(TOTAL 2020-01-16 11:11:00 [facility] TRIGLYCERIDES, HDL) ACTIVATED PARTIAL 2020-01-16 11:11:00 [facility] 2020-01-16 05:48:18 Umang [facility] XR CHEST 1 VW 2020-01-16 04:46:44 Umang [facility] TROPONIN I 2020-01-16 04:38:00 Umang [facility] HEPATIC FUNCTION PANEL 2020-01-16 04:38:00 Charanjit Heck [facility] ([id number]) (ALB,T.PRO,BILI Medical Branch T,BU/BC,ALT,AST,ALK PHOS) BASIC METABOLIC PANEL 2020-01-16 04:38:00 Charanjit Heck [facility] (NA, K, CL, CO2, GLUCOSE, Medica l Branch BUN, CREATININE, CA) CBC WITH DIFFERENTIAL 2020-01-16 04:38:00 Charanjit Heck [facility] sity [facility] GLYCOSYLATED HEMOGLOBIN 2020-01-16 04:38:00 Sarah Adorno [facility] (A1C) [facility] PROTHROMBIN TIME / INR 2020-01-16 04:38:00 Charanjit Heck [facility] ACTIVATED PARTIAL 2020-01-16 04:38:00 Charanjit Heck [facility] N-TERMINAL PRO-BNP 2020-01-16 04:38:00 Charanjit Heck [facility] EKG-12 LEAD 2020-01-16 04:37:48 Charanjit Heck [facility] EKG-12 LEAD 2020-01-16 04:35:35 Charanjit Heck [facility] AUTHORIZATION FOR RELEASE 2019-07-12 05:01:00 Doctor Blaise, [facility] [place] [facility] Encounters Start End Encounter Admission Attending Care Care Encounter Source Date/Time Date/Time Type Type Clinicians Facility Department ID 2021-12-18 Inpatient Raslan, [facility] OUTD [id number] [facility] 09:00:00 [facility] 2021-12-16 Inpatient EL Raslan, [facility] OUTD [id number] [facility] 11:30:00 [facility] 2021-09-16 Emergency [facility] [id number] Univers 00:23:34 ity of [facility] 2021-09-13 Emergency [facility] [id number] Univers 11:42:35 ity of [facility] 2021-09-13 Emergency [facility] [id number] Univers 05:40:48 ity of [facility] 2021-11-19 2021-11-19 Orders Doctor JONES [id number] Univers 00:00:00 00:00:00 Only UnassASHLEIGH bazzi [id number] ity of [place] [facility] [id number] [place] [phone] [place] [address] Branch 2021-11-04 2021-11-04 Transition SHAREE Maria 1.2.840.114 [id number] Univers 00:00:00 00:00:00 of Care Supa GREWAL [id number] it[place] of [place] [phone] [facility] 403 Branch 2021-10-30 2021-11-02 Inpatient X ALYSSA [facility] ZEFERINO [id number] Univers 19:14:00 18:15:00 AIDA ity of [facility] 2021-10-30 2021-11-02 [facility] 1.2.840. 114 [id number] Univers 19:14:00 18:15:00 Encounter Aida Shah ROXY [id number] ity of [place] 4.2.7.2.686 [facility] [phone] [facility] 081 Branch 2021-05-17 2021-05-17 Letter PcpROBERT 1.2.840.114 [id number] Univers 00:00:00 00:00:00 (Out) Patient ASHLEIGH [id number] [facility] 4.[place].2.[place] [phone] [facility] 019 Branch 2021-04-25 2021-04-25 Emergency Cece, TRAUMA [id number] Univers 10:43:00 17:38:00 [facility] 350.1.13.10 i ty [place] [phone] [facility] 014 Branch 2020-06-26 2020-06-26 Emergency [facility] [id number] Univers 03:50:00 06:45:00 Martha Montanaton 350.1.13.10 ity of [place] 4.2.7.2.686 [facility] [phone] [facility] 084 Branch 2020-06-26 2020-06-26 [facility] [id number] 03:50:00 06:45:[address] [place] 350.1.13.10 [place] 4.2.7.2.686 [place] [phone] [facility] 2020-05-24 2020-05-24 Emergency Umang, [facility] [id number] [facility] 06:40:47 10:54:00 Charanjit Roxy 350.1.13.10 i ty of [place] [phone] [address] 2020-05-24 2020-05-24 Emergency Umang, [facility] [id number] 06:40:47 10:54:00 Charanjit Cortez 350.1.13.10 [place] 4.2.7.2.686 [place] [id number] [facility] 2020-03-29 2020-03-29 Letter Jamel Flores 1.2.840.114 [id number] Univers 00:00:00 00:00:00 (Out) T Hickman 350.1.13.10 it y of [facility] 4.2.7.2.686 [place] [phone] [address] 2020-03-29 2020-03-29 Letter Jamel Flores 1.2.840.114 [id number] 00:00:00 00:00:00 (Out) T Hickman 350.1.13.10 [facility] 4.2.7.2.686 [id number] [facility] 2020-03-26 2020-03-26 Transition Sharee George 1.2.840.114 [id number] Univers 00:00:00 00:00:00 of Care Sherrell Grewal 350.1.13.10 it y of [place] [phone] [facility] 403 Branch 2020-03-26 2020-03-26 Transition ArielSharee grissom 1.2.840.114 [id number] 00:00:00 00:00:00 of Care Sherrell Grewla 350.1.13.10 [place] [phone] [facility] 2020-03-22 2020-03-23 Emergency Sallie Eckert 1.2.840. 114 [id number] [facility] 18:02:47 21:55:00 Jamel Flores Ashleigh 350.1.13.10 ity of [facility] 4.2.7.2.686 [place] [phone] [facility] 089 [place] 2020-03-22 2020-03-23 Outpatient X JAMEL FLORES [facility] MCA [id number] Univers 18:02:47 21:55:00 ity [facility] 2020-03-21 2020-03-21 [facility] 1.2.840.114 [id number] Univers 15:02:08 17:16:00 Myles Sharon Cortez 350.1.13.10 i ty of [place] 4[place] [phone] [place] 039854 [place] 2020-03-21 2020-03-21 Emergency [facility] [id number] Univers 15:02:08 17:16:00 MYLES ity [facility] 2020-03-13 2020-03-13 Outpatient Raju_P MMG MMG [id number] [place] 05:24:00 05:24:00 [facility] 2020-03-08 2020-03-08 Transition Sharee Cool 1.2.840.114 [id number] Univers 00:00:00 00:00:00 of Care Prema Grewal 350.1.13.10 i ty of [place] 4.2.7.2.[place] [id number] [facility] 403 Branch 2020-03-04 2020-03-07 [facility] Charanjit Heck [facility] 1.2.840.1 [id number] Univers 18:01:05 18:00:00 Encounter Sarah Adorno 350.1.13.10 ity of [place] 4.2.7.2.686 [facility] [phone] [facility] 081 Branch 2020-03-04 2020-03-07 Inpatient X JULIO CESAR [facility] ZEFERINO [id number] Univers 18:01:05 18:00:00 SARAH leon [facility] 2020-03-03 2020-03-03 Transition Sharee Silva 1.2.840.114 [id number] Univers 00:00:00 00:00:00 of Care Isatu Grewal 350.1.13.10 it y of [id number] [address] 2020-02-29 2020-03-02 [facility] Bobo Urrutia [facility] 1.2.840.11 [id number] Univers 16:53:09 12:18:00 Encounter Zenaidadanyannalisa Lulu Cortez 350.1.13.10 ity of [place] 4[place] [phone] [address] 2020-02-29 2020-03-02 Inpatient X KUNALANNALISA [facility] ZEFERINO [id number] Univers 16:53:09 12:18:00 LULU leon [facility] 2020-02-15 2020-02-15 Outpatient R CHAVA [facility] [id number] Univers 11:30:00 11:30:00 [facility] 2020-02-15 2020-02-15 [facility] 1.2.840.114 [id number] Univers 08:13:42 08:43:42 ne Visit Rosemary Cortez 350.1.13.10 ity of [place] Profess[place] [phone] [place] dical n[place] 220 Branch [facility] 2020-01-18 2020-01-18 Transition Sharee Harvey 1.2.840.114 [id number] Univers 00:00:00 00:00:00 of Care Ana M Hahny 350.1.13.10 it y of [place] [phone] [address] 2020-01-15 2020-01-17 [facility] HeckMatthewCharanjit [facility] 1.2.840.1 [id number] Univers 22:33:37 16:58:00 Encounter Sarah Adorno 350.1.13.10 ity of [place] [id number] [address] 2020-01-15 2020-01-17 Outpatient X JULIO CESAR [facility] ZEFERINO [id number] Univers 22:33:37 16:58:00 SARAH leon [facility] 2019-10-07 2019-10-07 Outpatient Brazjuliano Gant [id number] 10:48:00 10:48:00 [facility] 2019-10-05 2019-10-05 Outpatient [place]uliano [place] [id number] 16:06:00 16:06:00 [facility] 2019-07-27 2019-07-27 Refill Chava DCCESAR 1.2.840.114 [id number] Univers 00:00:00 00:00:00 Georgianajcarlos Cort[place] 350.1.13.10 i ty of [place] [phone] [place]ical [place] 220 [facility] 2019-07-12 2019-07-12 Outpatient Ko Connellt [id number] 16:24:00 16:24:00 [facility] 2019-07-12 2019-07-12 Orders Doctor JONES 1.2.840.114 [id number] Univers 00:00:00 00:00:00 Only Unassigned, ASHLEIGH 350.1.13.10 ity of [place] [facility] 4.2.7.2.686 [place] [phone] [address] 2019-07-06 2019-07-06 Outpatient Ko Connellt [id number] 14:00:00 14:00:00 [facility] Results Test Description Test Time Test Comments Results Result Comments Source POCT GLUCOSE (AUTOMATED) 2021-11-02 22:57:12 Test Item Value Reference Range Interpretation Comme nts POCT GLU (test code = 0845194562) 224 mg/dL 70-110 H Lab Interpretation (test code = 21443-3) [facility]normal [facility] LE[facility] ROUTINE [id number] 22:37:57 Test Item Value Reference Range Interpretation Comments Lab Interpretation (test code = Abnormal 83784-6) [facility]2021-11-02 17:43:02 Test Item Value Reference Range Interpretation Comments POCT GLU (test code = 4101694883) 264 mg/dL 70-110 H Lab Interpretation (test code = Abnormal 38461-5) [facility] [id number] 15:07:47 Test Item Value Reference Interpretation Comments Range TROPONIN I (test 0.064 ng/mL See_Comment H [Automated code = 2159898512) message] The system which generated this result [...] biotin. Lab Interpretation Abnormal (test code = 98882-2) [facility] [id number] 15:04:26 Test Item Value Reference Range Interpretation Comments NT-proBNP (test code 800 pg/mL See_Comment H [Autom ated = 9646993281) message] The system which generated this result transmitted reference range : <=450. The reference range was not used to interpret this result as normal/abnormal . ALYSSA (test code = ALYSSA) Biotin has been reported to cause a negative bias, interpret results relative to patient's use of biotin. Lab Interpretation Abnormal (test code = 53309-5) [facility]2021-11-02 13:36:38 Test Item Value Reference Range Interpretation Comments POCT GLU (test code = 5495372765) 185 mg/dL 70-110 H Lab Interpretation (test code = Abnormal 61554-8) [facility]OLIC PANEL (NA, K, CL, CO2, GLUCOSE, BUN, CREATININE, CA)2021-11-02 10:26:43 Test Item Value Reference Range Interpretation Comments NA (test code = 136 mmol/L 135-145 2226034267) K (test code = 4.0 mmol/L 3.5-5.0 7007465886) CL (test code = 99 mmol/L 98-108 8380600276) CO2 TOTAL (test code = 27 mmol/L 23-31 5604426116) AGAP (test code = 2-16 2883874506) BUN (test code = 30 mg/dL 7-23 H 3271196938) GLUCOSE (test code = 165 mg/dL 70-110 H 5658872481) CREATININE (test code = 1.42 mg/dL 0.60-1.25 H 9469813321) CALCIUM (test code = 9.5 mg/dL 8.6-10.6 7846219022) eGFR (test code = mL/min/1.73m2 1719488996) ALYSSA (test code = ALYSSA) Association of [...] tests). Lab Interpretation Abnormal (test code = 44576-6) [facility] WITH [id number] 10:01:58 Test Item Value Reference Range Interpretation [...] RDW-SD (test code = 39.8 fL 38.5-51.6 17788-1) RDW-CV (test code = 11.5 % 12.1-15.4 L 788-0) PLT (test code = See_Comment [Automated 777-3) message] The sy stem which generated this result transmitted reference range : 150 - 328 10*3/ ?L. The reference r corey was not used to interpret this result as normal/abnormal . MPV (test code = 10.5 fL 9.8-13.0 46196-3) NRBC/100 WBC (test See_Comment [Automat ed code = 5654765437) message] The system which generated this result transmitted reference range : 0.0 - 10.0 /100 WBCs. The refer ence range was not u sed to interpret th is result as normal/abnormal . NRBC x10^3 (test code <0.01 See_Comment [Auto mated = 5924279346) message] The s ystem which generated this result transmitted reference range : 10*3/?L. The reference range was not used to interpret this result as normal/abnormal . GRAN MAT (NEUT) % 59.3 % (test code = 770-8) IMM GRAN % (test code 0.30 % = 7295238024) LYMPH % (test code = 25.0 % 736-9) MONO % (test code = 10.7 % 5905-5) EOS % (test code = 4.1 % 713-8) BASO % (test code = 0.6 % 706-2) GRAN MAT x10^3(ANC) 4.19 10*3/uL 1.99-6.95 (test code = 1183034399) IMM GRAN x10^3 (test <0.03 0.00-0.06 code = 1930087650) LYMPH x10^3 (test code 1.77 10*3/uL 1.09-3.23 = 731-0) MONO x10^3 (test code 0.76 10*3/uL 0.36-1.02 = 742-7) EOS x10^3 (test code = 0.29 10*3/uL 0.06-0.53 711-2) BASO x10^3 (test code 0.04 10*3/uL 0.01-0.09 = 704-7) Lab Interpretation Abnormal (test code = 60200-5) [facility] GLUCOSE (AUTOMATED)2021-11-02 01:29:56 Test Item Value Reference Range Interpretation Comments POCT GLU (test code = 7895064939) 167 mg/dL 70-110 H Lab Interpretation (test code = Abnormal 90092-1) [facility] GLUCOSE (AUTOMATED)2021-11-01 17:40:19 Test Item Value Reference Range Interpretation Comments POCT GLU (test code = 8295275915) 193 mg/dL 70-110 H Lab Interpretation (test code = Abnormal 81970-3) [facility] GLUCOSE (AUTOMATED)2021-11-01 13:44:28 Test Item Value Reference Range Interpretation Comments POCT GLU (test code = 3880429656) 200 mg/dL 70-110 H Lab Interpretation (test code = Abnormal 87229-8) [facility] GLUCOSE (AUTOMATED)2021-11-01 01:38:43 Test Item Value Reference Range Interpretation Comments POCT GLU (test code = 6058784110) 177 mg/dL 70-110 H Lab Interpretation (test code = Abnormal 36529-5) [facility] GLUCOSE (AUTOMATED)2021-10-31 22:39:43 Test Item Value Reference Range Interpretation Comments POCT GLU (test code = 4023572388) 174 mg/dL 70-110 H Lab Interpretation (test code = Abnormal 27817-9) [facility] GLUCOSE (AUTOMATED)2021-10-31 17:40:22 Test Item Value Reference Range Interpretation Comments POCT GLU (test code = 1294940756) 224 mg/dL 70-110 H Lab Interpretation (test code = Abnormal 17537-9) [facility] [id number] 17:14:58 Test Item Value Reference Interpretation Comments Range TROPONIN I (test 0.080 ng/mL See_Comment H [Automated code = 4507847545) message] The system which generated this result [...] biotin. Lab Interpretation Abnormal (test code = 39725-4) [facility] [id number] 15:14:03 Test Item Value Reference Range Interpretation Comments NT-proBNP (test code 474 pg/mL See_Comment H [Autom ated = 6227583058) message] The system which generated this result transmitted reference range : <=450. The reference range was not used to interpret this result as normal/abnormal . ALYSSA (test code = ALYSSA) Biotin has been reported to cause a negative bias, interpret results relative to patient's use of biotin. Lab Interpretation Abnormal (test code = 82500-9) [facility] HospitalLIPID PANEL (15525)(TOTAL CHOLESTEROL, TRIGLYCERIDES, HDL)2021-10-31 15:05:19 Test Item Value Reference Range Interpretation Comments CHOL (test code = 101 mg/dL 120-200 L 3648285678) HDL (test code = 36 mg/dL >40 L 8349694826) HDLC RATIO (test code = See_Comment [Au tomated message] 6077378160) The system [employer] generated this result transmit diamante reference range : <=5.0. The refe rence range was not u sed to interpret th is result as normal/abnormal . TRIG (test code = 143 mg/dL 30-170 1916268648) LDL CHOL (test code = 36 mg/dL See_Comment [Auto mated message] 87700-0) The system [employer] generated this result transmit diamante reference range : <=160. The refe rence range was not u sed to interpret th is result as normal/abnormal . VLDL (test code = 29 mg/dL 5-60 5219259208) Lab Interpretation (test Abnormal code = 86008-6) [facility]31 13:44:00 Test Item Value Reference Range Interpretation Comments POCT GLU (test code = 4438205815) 150 mg/dL 70-110 H Lab Interpretation (test code = Abnormal 32270-6) [facility] with [id number] 11:13:14 Test Item Value Reference Range Interpretation [...] RDW-SD (test code = 39.9 fL 38.5-51.6 45691-8) RDW-CV (test code = 11.8 % 12.1-15.4 L 788-0) PLT (test code = See_Comment [Automated 777-3) message] The sy stem which generated this result transmitted reference range : 150 - 328 10*3/ ?L. The reference r corey was not used to interpret this result as normal/abnormal . MPV (test code = 11.0 fL 9.8-13.0 82383-9) NRBC/100 WBC (test See_Comment [Automat ed code = 6741836796) message] The system which generated this result transmitted reference range : 0.0 - 10.0 /100 WBCs. The refer ence range was not u sed to interpret th is result as normal/abnormal . NRBC x10^3 (test code <0.01 See_Comment [Auto mated = 7822548743) message] The s ystem which generated this result transmitted reference range : 10*3/?L. The reference range was not used to interpret this result as normal/abnormal . GRAN MAT (NEUT) % 64.3 % (test code = 770-8) IMM GRAN % (test code 0.30 % = 2431977136) LYMPH % (test code = 21.7 % 736-9) MONO % (test code = 10.0 % 5905-5) EOS % (test code = 3.1 % 713-8) BASO % (test code = 0.6 % 706-2) GRAN MAT x10^3(ANC) 4.35 10*3/uL 1.99-6.95 (test code = 4319199553) IMM GRAN x10^3 (test <0.03 0.00-0.06 code = 6740668827) LYMPH x10^3 (test code 1.47 10*3/uL 1.09-3.23 = 731-0) MONO x10^3 (test code 0.68 10*3/uL 0.36-1.02 = 742-7) EOS x10^3 (test code = 0.21 10*3/uL 0.06-0.53 711-2) BASO x10^3 (test code 0.04 10*3/uL 0.01-0.09 = 704-7) Lab Interpretation Abnormal (test code = 15289-9) [facility]TRJA[facility] [id number] 11:09:53 Test Item Value Reference Interpretation Comments Range TROPONIN I (test 0.101 ng/mL See_Comment H [Automated code = 2427222236) message] The system which generated this result [...] biotin. Lab Interpretation Abnormal (test code = 73739-9) [facility] (NA, K, CL, CO2, GLUCOSE, BUN, CREATININE, CA)2021-10-31 10:59:31 Test Item Value Reference Range Interpretation Comments NA (test code = 139 mmol/L 135-145 8607587622) K (test code = 4.1 mmol/L 3.5-5.0 5342131392) CL (test code = 103 mmol/L 98-108 3320621108) CO2 TOTAL (test code = 28 mmol/L 23-31 1130668713) AGAP (test code = 2-16 6847284064) BUN (test code = 43 mg/dL 7-23 H 8942966959) GLUCOSE (test code = 165 mg/dL 70-110 H 2094872252) CREATININE (test code = 1.68 mg/dL 0.60-1.25 H 4168062370) CALCIUM (test code = 9.6 mg/dL 8.6-10.6 3404006149) eGFR (test code = mL/min/1.73m2 6375317023) ALYSSA (test code = ALYSSA) Association of [...] tests). Lab Interpretation Abnormal (test code = 90525-3) [facility] HospitalGlycosylated Hemoglobin (A1C)2021-10-31 09:13:40 Test Item Value Reference Range Interpretation Comments HGB A1C (test code = 6.8 % 4.0-5.7 H 4548-4) ALYSSA (test code = ALYSSA) Reference RangesNormal: <5.7%Prediabetes: 5.7 - 6.4%Diabetes: > 6.5% Lab Interpretation (test Abnormal code = 74010-1) [facility] HospitalTR[facility] [id number] 06:48:18 Test Item Value Reference Interpretation Comments Range TROPONIN I (test 0.082 ng/mL See_Comment H [Automated code = 2233122436) message] The system which generated this result [...] biotin. Lab Interpretation Abnormal (test code = 65976-8) [facility] HospitalTR[facility] [id number] 02:09:48 Test Item Value Reference Interpretation Comments Range TROPONIN I (test 0.067 ng/mL See_Comment H [Automated code = 8005745475) message] The system which generated this result [...] biotin. Lab Interpretation Abnormal (test code = 69492-7) [facility] HospitalN-TERMINAL [id number] 02:06:31 Test Item Value Reference Range Interpretation Comments NT-proBNP (test code 318 pg/mL See_Comment [Autom ated = 3656882066) message] The system which generated this result transmitted reference range : <=450. The reference range was not used to interpret this result as normal/abnormal . ALYSSA (test code = ALYSSA) Biotin has been reported to cause a negative bias, interpret results relative to patient's use of biotin. Lab Interpretation Normal (test code = 14840-1) [facility] METABOLIC PANEL (14421)2021-10-31 01:58:28 Test Item Value Reference Range Interpretation Comments NA (test code = 137 mmol/L 135-145 9724314900) K (test code = 4.1 mmol/L 3.5-5.0 4752043399) CL (test code = 101 mmol/L 98-108 4080986857) CO2 TOTAL (test code = 26 mmol/L 23-31 8541613494) AGAP (test code = 2-16 9819307080) BUN (test code = 46 mg/dL 7-23 H 4265344213) GLUCOSE (test code = 213 mg/dL 70-110 H 2117297139) CREATININE (test code = 1.96 mg/dL 0.60-1.25 H 7306299166) TOTAL BILI (test code = 0.9 mg/dL 0.1-1.5 0029258196) CALCIUM (test code = 9.7 mg/dL 8.6-10.6 8900015531) T PROTEIN (test code = 7.0 g/dL 6.3-8.2 4449320155) ALBUMIN (test code = 4.3 g/dL 3.5-5.0 7471475031) ALK PHOS (test code = 58 U/L 34-122 0049277541) ALTv (test code = 20 U/L 5-50 1742-6) AST(SGOT) (test code = 27 U/L 13-40 4226286103) eGFR (test code = mL/min/1.73m2 0925547684) ALYSSA (test code = ALYSSA) Association of [...] tests). Lab Interpretation Abnormal (test code = 30522-2) [facility] HospitalLIPASE, [id number] 01:57:48 Test Item Value Reference Range Interpretation Comments LIPASE (test code = 3885525935) 330 U/L 0-220 H Lab Interpretation (test code = Abnormal 20112-6) [facility]aPTT2021-[facility]-16 01:55:04 Test Item Value Reference Range Interpretation Comments APTT Patient (test See_Comment [Automat ed code = 3173-2) message] The system which generated this result transmitted reference range : 23 - 38 Seconds . The reference range was not used to interpr et this result as normal/abnormal . ALYSSA (test code = ALYSSA) The [facility] patient population mean normal value for aPTT is 30 seconds. Lab Interpretation Normal (test code = 15259-4) [facility] HospitalPROTHROMBIN TIME / [id number] 01:53:08 Test Item Value Reference Range Interpretation [...] tions. Lab Interpretation (test Normal code = 56311-2) [facility] WITH [id number] 01:45:44 Test Item Value Reference Range Interpretation Comments WBC (test code = See_Comment [Automated 7990-2) message] The sy stem which generated this [...] RDW-SD (test code = 39.1 fL 38.5-51.6 68313-7) RDW-CV (test code = 11.6 % 12.1-15.4 L 788-0) PLT (test code = See_Comment [Automated 777-3) message] The sy stem which generated this result transmitted reference range : 150 - 328 10*3/ ?L. The reference r corey was not used to interpret this result as normal/abnormal . MPV (test code = 10.4 fL 9.8-13.0 67624-2) NRBC/100 WBC (test See_Comment [Automat ed code = 8892222786) message] The system which generated this result transmitted reference range : 0.0 - 10.0 /100 WBCs. The refer ence range was not u sed to interpret th is result as normal/abnormal . NRBC x10^3 (test code <0.01 See_Comment [Auto mated = 8755375277) message] The s ystem which generated this result transmitted reference range : 10*3/?L. The reference range was not used to interpret this result as normal/abnormal . GRAN MAT (NEUT) % 62.1 % (test code = 770-8) IMM GRAN % (test code 0.30 % = 9538226638) LYMPH % (test code = 23.4 % 736-9) MONO % (test code = 10.8 % 5905-5) EOS % (test code = 2.9 % 713-8) BASO % (test code = 0.5 % 706-2) GRAN MAT x10^3(ANC) 4.14 10*3/uL 1.99-6.95 (test code = 1814878389) IMM GRAN x10^3 (test <0.03 0.00-0.06 code = 9121525730) LYMPH x10^3 (test code 1.56 10*3/uL 1.09-3.23 = 731-0) MONO x10^3 (test code 0.72 10*3/uL 0.36-1.02 = 742-7) EOS x10^3 (test code = 0.19 10*3/uL 0.06-0.53 711-2) BASO x10^3 (test code 0.03 10*3/uL 0.01-0.09 = 704-7) Lab Interpretation Abnormal (test code = 98480-0) [facility]URIN[facility]IS2021-[facility] 21:15:48 Test Item Value Reference Range Interpretation Comments APPEARANCE (test code = Clear Clear 4319149554) COLOR (test code = Yellow Yellow 6016917836) PH (test code = 4.8-8.0 1604124737) SP GRAVITY (test code = 1.003-1.030 6414091403) GLU U QUAL (test code = 50 mg/dL Normal A 8775326309) BLOOD (test code = Negative Negative INTERFERE NCE FROM 1664121664) ASCORBIC ACID M AY CAUSE FALSE NEG ATIVE RESULT KETONES (test code = Negative Negative 1933570089) PROTEIN (test code = Negative Negative 2887-8) UROBILIN (test code = Normal Normal 9347347114) BILIRUBIN (test code = Negative Negative 5373915659) NITRITE (test code = Negative Negative 9119580945) LEUK JESS (test code = Negative Negative 0337100228) RBC/HPF (test code = See_Comment [Autom ated message] 7236148501) The system [employer] generated this result transmitted ref erence range: 0 - 3 HP F. The reference range was not used to int erpret this result as normal/abnormal . WBC/HPF (test code = See_Comment [Autom ated message] 5479753884) The system [employer] generated this result transmitted ref erence range: 0 - 5 HP F. The reference range was not used to int erpret this result as normal/abnormal . BACTERIA (test code = Negative Negative 5823739014) SQ EPITH (test code = <1 See_Comment [Auto mated message] 0020802685) The system [employer] generated this result transmitted ref erence range: <=2 HPF. The reference range was not used to int erpret this result as normal/abnormal . HYAL CAST (test code = See_Comment [Aut omated message] 3996884604) The system [employer] generated this result transmitted ref erence range: <=2 LPF. The reference range was not used to int erpret this result as normal/abnormal . Lab Interpretation (test Abnormal code = 54032-0) [facility]XR LUMBAR SPINE 2 [id number] 20:30:53 Impression: Postoperative changes. Degenerative changes. No [...] acute bony abnormality identified.End of Report.RL: 3901 [facility]XR HIPS 2 VW [id number] 20:24:52Impression: Postoperative changes. Degenerative changes. No acute [...] clinicalconcern MRI is available.End of Report.RL: [address] [facility] Metabolic Panel (NA, K, CL, CO2, GLUCOSE, BUN, CREATININE, CA)2020-05-24 14:15:00 Test Item Value Reference Range Interpretation Comments NA (test code = 139 mmol/L 135-145 5805132142) K (test code = 4.1 mmol/L 3.5-5 8805714406) CL (test code = 104 mmol/L 98-108 7186738636) CO2 TOTAL (test code = 26 mmol/L 23-31 9998359427) AGAP (test code = 2-16 6976251752) BUN (test code = 22 mg/dL 7-23 7076004637) GLUCOSE (test code = 203 mg/dL 70-110 H 0753564733) CREATININE (test code = 1.40 mg/dL 0.6-1.25 H 6470288115) CALCIUM (test code = 9.1 mg/dL 8.6-10.6 2530087230) eGFR Calculation mL/min/1.73m2 (Non-) (test code = 2497368315) eGFR Calculation mL/min/1.73m2 () (test code = 5509671456) ALYSSA (test code = ALYSSA) Association of [...] tests). Lab Interpretation Abnormal (test code = 03334-5) [facility] HospitalHepatic Function Panel (ALB, T.PRO, BILI T, BU/BC, ALT, AST, ALK PHOS)2020-05-24 13:54:00 Test Item Value Reference Range Interpretation Comments TOTAL BILI (test code = 7981328205) 0.9 mg/dL 0.1-1.1 BILI UNCON (test code = 3691462056) 1.0 mg/dL 0.1-1.1 BILI CONJ (test code = 1630116688) 0.0 mg/dL 0-0.3 T PROTEIN (test code = 1707470321) 7.0 g/dL 6.3-8.2 ALBUMIN (test code = 6022546996) 4.2 g/dL 3.5-5 ALK PHOS (test code = 5658168297) 49 U/L 34-122 ALTv (test code = 1742-6) 17 U/L 5-50 AST(SGOT) (test code = 7861708611) 25 U/L 13-40 Lab Interpretation (test code = Normal 04213-0) [facility]aPTT2020-07-09 13:32:00 Test Item Value Reference Range Interpretation Comments APTT Patient (test See_Comment [Automat ed code = 3173-2) message] The system which generated this result transmitted reference range : 23 - 38 Seconds . The reference range was not used to interpr et this result as normal/abnormal . ALYSSA (test code = ALYSSA) The [facility] patient population mean normal value for aPTT is 30 seconds. Lab Interpretation Normal (test code = 65419-4) [facility] HospitalProthrombin Time (PT) / [id number] 13:30:00 Test Item Value Reference Range Interpretation [...] tions. Lab Interpretation (test Normal code = 86126-9) [facility] HospitalCBC WITH [id number] 13:27:00 Test Item Value Reference Range Interpretation [...] RDW-SD (test code = 42.6 fL 38.5-51.6 65982-0) RDW-CV (test code = 12.3 % 12.1-15.4 788-0) PLT (test code = See_Comment [Automated 777-3) message] The sy stem which generated this result transmitted reference range : 150 - 328 10*3/ ?L. The reference r corey was not used to interpret this result as normal/abnormal . MPV (test code = 9.9 fL 9.8-13 50546-8) NRBC/100 WBC (test See_Comment [Automat ed code = 1024639703) message] The system which generated this result transmitted reference range : 0.0 - 10.0 /100 WBCs. The refer ence range was not u sed to interpret th is result as normal/abnormal . NRBC x10^3 (test code <0.01 See_Comment [Auto mated = 3998419092) message] The s ystem which generated this result transmitted reference range : 10*3/?L. The reference range was not used to interpret this result as normal/abnormal . GRAN MAT (NEUT) % 55.1 % (test code = 770-8) IMM GRAN % (test code 0.20 % = 1797891619) LYMPH % (test code = 28.8 % 736-9) MONO % (test code = 11.3 % 5905-5) EOS % (test code = 3.5 % 713-8) BASO % (test code = 1.1 % 706-2) GRAN MAT x10^3(ANC) 3.11 10*3/uL 1.99-6.95 (test code = 8027683062) IMM GRAN x10^3 (test <0.03 0-0.06 code = 2896924065) LYMPH x10^3 (test code 1.63 10*3/uL 1.09-3.23 = 731-0) MONO x10^3 (test code 0.64 10*3/uL 0.36-1.02 = 742-7) EOS x10^3 (test code = 0.20 10*3/uL 0.06-0.53 711-2) BASO x10^3 (test code 0.06 10*3/uL 0.01-0.09 = 704-7) Lab Interpretation Abnormal (test code = 74942-5) [facility]XR AN[facility]LE [facility]+ VW [id number] 13:25:58HISTORY: ?Pain. FINDINGS: AP, lateral, oblique views [...] No acute fracture or dislocation in left ankle.[facility] GLUCOSE (AUTOMATED)2020-03-23 22:34:00 Test Item Value Reference Range Interpretation Comments POCT GLU (test code = 0074896451) 173 mg/dL 70-110 H Lab Interpretation (test code = Abnormal 85396-2) [facility] GLUCOSE (AUTOMATED)2020-03-23 22:34:00 Test Item Value Reference Range Interpretation Comments POCT GLU (test code = 5869057145) 173 mg/dL 70-110 H Lab Interpretation (test code = Abnormal 99363-9) [facility] GLUCOSE (AUTOMATED)2020-03-23 18:12:00 Test Item Value Reference Range Interpretation Comments POCT GLU (test code = 165 mg/dL 70-110 H Notifi ed Provider 8956978852) Lab Interpretation (test Abnormal code = 66839-4) [facility] GLUCOSE (AUTOMATED)2020-03-23 18:12:00 Test Item Value Reference Range Interpretation Comments POCT GLU (test code = 165 mg/dL 70-110 H Notifi ed Provider [id number]) Lab Interpretation (test Abnormal code = 26268-4) [facility] GLUCOSE (AUTOMATED)2020-03-23 15:04:00 Test Item Value Reference Range Interpretation Comments POCT GLU (test code = 114 mg/dL 70-110 H Notifi ed Provider 3311151508) Lab Interpretation (test Abnormal code = 17813-0) [facility] GLUCOSE (AUTOMATED)2020-03-23 15:04:00 Test Item Value Reference Range Interpretation Comments POCT GLU (test code = 114 mg/dL 70-110 H Notifi ed Provider 3656974691) Lab Interpretation (test Abnormal code = 01272-9) [facility] HospitalFERRITIN [id number] 13:23:00 Test Item Value Reference Range Interpretation Comments FERRITIN (test code = 139.0 ng/mL 18-464 6260701944) ALYSSA (test code = ALYSSA) Biotin has been reported to cause a negative bias, interpret results relative to patient's use of biotin. Lab Interpretation (test Normal code = 20309-3) [facility] HospitalFERRITIN [id number] 13:23:00 Test Item Value Reference Range Interpretation Comments FERRITIN (test code = 139.0 ng/mL 18-464 2383969193) ALYSSA (test code = ALYSSA) Biotin has been reported to cause a negative bias, interpret results relative to patient's use of biotin. Lab Interpretation (test Normal code = 47124-8) [facility] [id number] 12:53:00 Test Item Value Reference Range Interpretation Comments IRON (test code = 8941519572) 87 ug/dL 50-160 TIBC (test code = 1496317878) 385 ug/dL 250-410 % FE SAT (test code = 4354815746) 23 % 20-50 Lab Interpretation (test code = Normal 65754-4) [facility] [id number] 12:53:00 Test Item Value Reference Range Interpretation Comments IRON (test code = 2392893252) 87 ug/dL 50-160 TIBC (test code = 3292694415) 385 ug/dL 250-410 % FE SAT (test code = 9833965722) 23 % 20-50 Lab Interpretation (test code = Normal 45760-6) [facility]2020-[facility]-08 12:07:00 Test Item Value Reference Range Interpretation Comments APTT Patient (test code See_Comment HH [Au tomated message] = 3173-2) The system [employer] generated this result transmitted ref erence range: 26 - 36 Seconds. The reference range was not used to int erpret this result as normal/abnormal . Lab Interpretation (test Abnormal code = 84060-2) [facility]TT2020-05-08 12:07:00 Test Item Value Reference Range Interpretation Comments APTT Patient (test code See_Comment HH [Au tomated message] = 3173-2) The system [employer] generated this result transmitted ref erence range: 26 - 36 Seconds. The reference range was not used to int erpret this result as normal/abnormal . Lab Interpretation (test Abnormal code = 42162-2) [facility] [id number] 11:57:00 Test Item Value Reference Range Interpretation Comments TROPONIN I (test 0.046 ng/mL See_Comment H [Automated code = 3475200608) message] The system which generated this result [...] ? Lab Interpretation Abnormal (test code = 72472-5) [facility] [id number] 11:57:00 Test Item Value Reference Range Interpretation Comments TROPONIN I (test 0.046 ng/mL See_Comment H [Automated code = 7819490198) message] The system which generated this result [...] ? Lab Interpretation Abnormal (test code = 97205-1) [facility] (NA, K, CL, CO2, GLUCOSE, BUN, CREATININE, CA)2020-03-23 11:52:00 Test Item Value Reference Range Interpretation Comments NA (test code = 137 mmol/L 135-145 6224534888) K (test code = 4.1 mmol/L 3.5-5 0274228369) CL (test code = 102 mmol/L 98-108 2985446706) CO2 TOTAL (test code = 26 mmol/L 23-31 0441466829) AGAP (test code = 2-16 9372177939) BUN (test code = 18 mg/dL 7-23 8888887289) GLUCOSE (test code = 119 mg/dL 70-110 H 4624908028) CREATININE (test code = 1.14 mg/dL 0.6-1.25 7671133798) CALCIUM (test code = 9.1 mg/dL 8.6-10.6 3348537960) eGFR Calculation mL/min/1.73m2 (Non-) (test code = 3364536402) eGFR Calculation mL/min/1.73m2 () (test code = 6607804681) ALYSSA (test code = ALYSSA) Association of [...] tests). Lab Interpretation Abnormal (test code = 58342-4) [facility]MAGNESIUM2020-05-08 11:52:00 Test Item Value Reference Range Interpretation Comments MAGNESIUM (test code = 0525734252) 2.2 mg/dL 1.7-2.4 Lab Interpretation (test code = Normal 53244-8) [facility] HospitalBASI METABOLIC PANEL (NA, K, CL, CO2, GLUCOSE, BUN, CREATININE, CA)2020-03-23 11:52:00 Test Item Value Reference Range Interpretation Comments NA (test code = 137 mmol/L 135-145 3968119127) K (test code = 4.1 mmol/L 3.5-5 9203443361) CL (test code = 102 mmol/L 98-108 4879518964) CO2 TOTAL (test code = 26 mmol/L 23-31 5109184195) AGAP (test code = 2-16 2985683702) BUN (test code = 18 mg/dL 7-23 7381247446) GLUCOSE (test code = 119 mg/dL 70-110 H 5571957357) CREATININE (test code = 1.14 mg/dL 0.6-1.25 8804780460) CALCIUM (test code = 9.1 mg/dL 8.6-10.6 6580963375) eGFR Calculation mL/min/1.73m2 (Non-) (test code = 9096766390) eGFR Calculation mL/min/1.73m2 () (test code = 7818600084) ALYSSA (test code = ALYSSA) Association of [...] tests). Lab Interpretation Abnormal (test code = 83335-0) [facility] 11[facility]52:00 Test Item Value Reference Range Interpretation Comments MAGNESIUM (test code = 9902189491) 2.2 mg/dL 1.7-2.4 Lab Interpretation (test code = Normal 33619-2) [facility] HospitalProthrombin Time (PT) / [id number] 11:36:00 Test Item Value Reference Range Interpretation Comments PROTIME PATIENT (test See_Comment [Auto mated message] code = 5964-2) The system [employer] generated this result transmitted ref erence range: 10.1 - 1 2.6 Seconds. The re ference range was not u sed to interpret this result as normal/abnor mal. INR (test code = 6301-6) Nor mal INR <1.1; Warfarin Therap eutic range 2.0 to 3. 0 or 2.5 to 3.5, dep ending upon the indica tions. Lab Interpretation (test Normal code = 24318-6) [facility] HospitalProthrombin Time (PT) / [id number] 11:36:00 Test Item Value Reference Range Interpretation Comments PROTIME PATIENT (test See_Comment [Auto mated message] code = 5964-2) The system [employer] generated this result transmitted ref erence range: 10.1 - 1 2.6 Seconds. The re ference range was not u sed to interpret this result as normal/abnor mal. INR (test code = 6301-6) Nor mal INR <1.1; Warfarin Therap eutic range 2.0 to 3. 0 or 2.5 to 3.5, dep ending upon the indica tions. Lab Interpretation (test Normal code = 12022-8) [facility] HospitalTROP[facility]IN [id number] 06:38:00 Test Item Value Reference Range Interpretation Comments TROPONIN I (test 0.045 ng/mL See_Comment H [Automated code = 5409844398) message] The system which generated this result [...] ? Lab Interpretation Abnormal (test code = 02475-4) [facility] HospitalWENDY [id number] 06:38:00 Test Item Value Reference Range Interpretation Comments TROPONIN I (test 0.045 ng/mL See_Comment H [Automated code = 0528567870) message] The system which generated this result [...] ? Lab Interpretation Abnormal (test code = 94077-7) [facility] (NA, K, CL, CO2, GLUCOSE, BUN, CREATININE, CA)2020-03-23 06:29:00 Test Item Value Reference Range Interpretation Comments NA (test code = 137 mmol/L 135-145 7158301170) K (test code = 3.6 mmol/L 3.5-5 3488608139) CL (test code = 101 mmol/L 98-108 4108539663) CO2 TOTAL (test code = 27 mmol/L 23-31 0684379105) AGAP (test code = 2-16 3608594367) BUN (test code = 19 mg/dL 7-23 8101085091) GLUCOSE (test code = 153 mg/dL 70-110 H 8486526729) CREATININE (test code = 1.22 mg/dL 0.6-1.25 0698043867) CALCIUM (test code = 8.9 mg/dL 8.6-10.6 4420359673) eGFR Calculation mL/min/1.73m2 (Non-) (test code = 3687198869) eGFR Calculation mL/min/1.73m2 () (test code = 0498061604) ALYSSA (test code = ALYSSA) Association of [...] tests). Lab Interpretation Abnormal (test code = 03208-0) [facility]MAGN[facility]IUM2020-05-08 06:29:00 Test Item Value Reference Range Interpretation Comments MAGNESIUM (test code = 7415287711) 1.7 mg/dL 1.7-2.4 Lab Interpretation (test code = Normal 45124-2) [facility] HospitalLIPID PANEL (43722)(TOTAL CHOLESTEROL, TRIGLYCERIDES, HDL)2020-03-23 06:29:00 Test Item Value Reference Range Interpretation Comments CHOL (test code = 106 mg/dL 120-200 L 1961361895) HDL (test code = 46 mg/dL >40 2633617331) HDLC RATIO (test code = See_Comment [Au tomated message] 7046935660) The system [employer] generated this result transmit diamante reference range : <=5.0. The refe rence range was not u sed to interpret th is result as normal/abnormal . TRIG (test code = 74 mg/dL 30-170 9264947268) LDL CHOL (test code = 45 mg/dL See_Comment [Auto mated message] 95358-2) The system [employer] generated this result transmit diamante reference range : <=160. The refe rence range was not u sed to interpret th is result as normal/abnormal . VLDL (test code = 15 mg/dL 5-60 1768096117) Lab Interpretation (test Abnormal code = 99143-6) [facility] [facility] (NA, K, CL, CO2, GLUCOSE, BUN, CREATININE, CA)2020-03-23 06:29:00 Test Item Value Reference Range Interpretation Comments NA (test code = 137 mmol/L 135-145 7493235412) K (test code = 3.6 mmol/L 3.5-5 1799772492) CL (test code = 101 mmol/L 98-108 8747703702) CO2 TOTAL (test code = 27 mmol/L 23-31 2654245481) AGAP (test code = 2-16 5872964729) BUN (test code = 19 mg/dL 7-23 7854021795) GLUCOSE (test code = 153 mg/dL 70-110 H 1140040937) CREATININE (test code = 1.22 mg/dL 0.6-1.25 7693300930) CALCIUM (test code = 8.9 mg/dL 8.6-10.6 0596300700) eGFR Calculation mL/min/1.73m2 (Non-) (test code = 8114056735) eGFR Calculation mL/min/1.73m2 () (test code = 2541234827) ALYSSA (test code = ALYSSA) Association of [...] tests). Lab Interpretation Abnormal (test code = 49801-7) [facility] Test Item Value Reference Range Interpretation Comments MAGNESIUM (test code = 8883374942) 1.7 mg/dL 1.7-2.4 Lab Interpretation (test code = Normal 83948-0) [facility] (26688)(TOTAL CHOLESTEROL, TRIGLYCERIDES, HDL)2020-03-23 06:29:00 Test Item Value Reference Range Interpretation Comments CHOL (test code = 106 mg/dL 120-200 L 3652097156) HDL (test code = 46 mg/dL >40 0789570054) HDLC RATIO (test code = See_Comment [Au tomated message] 7900227997) The system [employer] generated this result transmit diamante reference range : <=5.0. The refe rence range was not u sed to interpret th is result as normal/abnormal . TRIG (test code = 74 mg/dL 30-170 9571103487) LDL CHOL (test code = 45 mg/dL See_Comment [Auto mated message] 04799-9) The system [employer] generated this result transmit diamante reference range : <=160. The refe rence range was not u sed to interpret th is result as normal/abnormal . VLDL (test code = 15 mg/dL 5-60 1399075425) Lab Interpretation (test Abnormal code = 97767-5) [facility] 03:18:00 Test Item Value Reference Range Interpretation Comments APTT Patient (test code = See_Comment [ Automated message] 3173-2) The system [employer] generated this result transmitted ref erence range: 26 - 36 Seconds. The re ference range was not u sed to interpret this result as normal/abnor mal. Lab Interpretation (test Normal code = 16049-1) [facility] 03:18:00 Test Item Value Reference Range Interpretation Comments APTT Patient (test code = See_Comment [ Automated message] 3173-2) The system [employer] generated this result transmitted ref erence range: 26 - 36 Seconds. The re ference range was not u sed to interpret this result as normal/abnor mal. Lab Interpretation (test Normal code = 45291-5) [facility] HospitalPROTHROMBIN [facility] / [id number] 03:07:00 Test Item Value Reference Range Interpretation Comments PROTIME PATIENT (test See_Comment [Auto mated message] code = 5964-2) The system [employer] generated this result transmitted ref erence range: 10.1 - 1 2.6 Seconds. The re ference range was not u sed to interpret this result as normal/abnor mal. INR (test code = 6301-6) Nor mal INR <1.1; Warfarin Therap eutic range 2.0 to 3. 0 or 2.5 to 3.5, dep ending upon the indica tions. Lab Interpretation (test Normal code = 29853-8) [facility] HospitalPROTHROMBIN [facility] / [id number] 03:07:00 Test Item Value Reference Range Interpretation Comments PROTIME PATIENT (test See_Comment [Auto mated message] code = 5964-2) The system [employer] generated this result transmitted ref erence range: 10.1 - 1 2.6 Seconds. The re ference range was not u sed to interpret this result as normal/abnor mal. INR (test code = 6301-6) Nor mal INR <1.1; Warfarin Therap eutic range 2.0 to 3. 0 or 2.5 to 3.5, dep ending upon the indica tions. Lab Interpretation (test Normal code = 65636-4) [facility] HospitalXR CHEST 2 [id number] 02:23:32 No acute cardiopulmonary process. Preliminary Report [...] reviewed this study and agree with the abovereport.[facility] HospitalXR CHEST 2 [id number] 02:23:32 No acute cardiopulmonary process. Preliminary Report [...] reviewed this study and agree with the abovereport.[facility] HospitalCORON[facility]IRUS COVID-19 [id number] 01:23:00 Test Item Value Reference Range Interpretation Comments SARS-CoV-2 (test code = Not Detected Not Detected 75150-0) ALYSSA (test code = ALYSSA) ID NOW COVID-19 Assay is an isothermal nucleic acid amplification test intended for the qualitative detection of nucleic acid from SARS-CoV-2 viral RNA in nasopharyngeal (UI ARCHITECT) specimens. It is used under Emergency Use [...] indicated. Lab Interpretation Normal (test code = 79037-7) [facility]COR[facility]-19 [id number] 01:23:00 Test Item Value Reference Range Interpretation Comments SARS-CoV-2 (test code = Not Detected Not Detected 47121-1) ALYSSA (test code = ALYSSA) ID NOW COVID-19 Assay is an isothermal nucleic acid amplification test intended for the qualitative detection of nucleic acid from SARS-CoV-2 viral RNA in nasopharyngeal (UI ARCHITECT) specimens. It is used under Emergency Use [...] indicated. Lab Interpretation Normal (test code = 11474-5) [facility] HospitalN-TERMINAL [id number] 00:12:00 Test Item Value Reference Range Interpretation Comments NT-proBNP (test code 585 pg/mL See_Comment H [Autom ated = 2654353382) message] The system which generated this result transmitted reference range : <=450. The reference range was not used to interpret this result as normal/abnormal . ALYSSA (test code = ALYSSA) Biotin has been reported to cause a negative bias, interpret results relative to patient's use of biotin. Lab Interpretation Abnormal (test code = 40899-5) [facility] HospitalTROPONIN [id number] 00:12:00 Test Item Value Reference Range Interpretation Comments TROPONIN I (test 0.030 ng/mL See_Comment [Automated code = 8557595041) message] The system which generated this result [...] ? Lab Interpretation Normal (test code = 57468-6) [facility] HospitalN-TERMINAL [id number] 00:12:00 Test Item Value Reference Range Interpretation Comments NT-proBNP (test code 585 pg/mL See_Comment H [Autom ated = 5731198962) message] The system which generated this result transmitted reference range : <=450. The reference range was not used to interpret this result as normal/abnormal . ALYSSA (test code = ALYSSA) Biotin has been reported to cause a negative bias, interpret results relative to patient's use of biotin. Lab Interpretation Abnormal (test code = 54360-2) [facility] HospitalTROPONIN [id number] 00:12:00 Test Item Value Reference Range Interpretation Comments TROPONIN I (test 0.030 ng/mL See_Comment [Automated code = 0619050617) message] The system which generated this result [...] ? Lab Interpretation Normal (test code = 85229-5) [facility] METABOLIC PANEL (87922)2020-03-23 00:03:00 Test Item Value Reference Range Interpretation Comments NA (test code = 138 mmol/L 135-145 0746297434) K (test code = 4.1 mmol/L 3.5-5 9120227855) CL (test code = 103 mmol/L 98-108 1549331528) CO2 TOTAL (test code = 26 mmol/L 23-31 3332931475) AGAP (test code = 2-16 7031074490) BUN (test code = 18 mg/dL 7-23 1295436640) GLUCOSE (test code = 157 mg/dL 70-110 H 2516166985) CREATININE (test code = 1.19 mg/dL 0.6-1.25 0592738124) TOTAL BILI (test code = 1.1 mg/dL 0.1-1.6 1510718875) CALCIUM (test code = 9.2 mg/dL 8.6-10.6 4534367562) T PROTEIN (test code = 6.8 g/dL 6.3-8.2 4542709473) ALBUMIN (test code = 4.0 g/dL 3.5-5 3302348464) ALK PHOS (test code = 51 U/L 34-122 0419032596) ALTv (test code = 16 U/L 5-50 1742-6) AST(SGOT) (test code = 23 U/L 13-40 5336433034) eGFR Calculation mL/min/1.73m2 (Non-) (test code = 8260328175) eGFR Calculation mL/min/1.73m2 () (test code = 6468002785) ALYSSA (test code = ALYSSA) Association of [...] tests). Lab Interpretation Abnormal (test code = 61946-5) [facility]. METABOLIC PANEL (07451)2020-03-23 00:03:00 Test Item Value Reference Range Interpretation Comments NA (test code = 138 mmol/L 135-145 4756594622) K (test code = 4.1 mmol/L 3.5-5 1598437925) CL (test code = 103 mmol/L 98-108 2777649636) CO2 TOTAL (test code = 26 mmol/L 23-31 9554098089) AGAP (test code = 2-16 2643350700) BUN (test code = 18 mg/dL 7-23 8645264446) GLUCOSE (test code = 157 mg/dL 70-110 H 2604283472) CREATININE (test code = 1.19 mg/dL 0.6-1.25 0589764159) TOTAL BILI (test code = 1.1 mg/dL 0.1-1.0 9340260237) CALCIUM (test code = 9.2 mg/dL 8.6-10.6 3125950457) T PROTEIN (test code = 6.8 g/dL 6.3-8.2 0575341016) ALBUMIN (test code = 4.0 g/dL 3.5-5 6583945933) ALK PHOS (test code = 51 U/L 34-122 5547227190) ALTv (test code = 16 U/L 5-50 2-6) AST(SGOT) (test code = 23 U/L 13-40 8801015295) eGFR Calculation mL/min/1.73m2 (Non-) (test code = 0506046754) eGFR Calculation mL/min/1.73m2 () (test code = 5532856892) ALYSSA (test code = ALYSSA) Association of [...] tests). Lab Interpretation Abnormal (test code = 78219-1) [facility] WITH [id number] 23:57:00 Test Item Value Reference Range Interpretation [...] RDW-SD (test code = 49.6 fL 38.5-51.6 95039-8) RDW-CV (test code = 14.6 % 12.1-15.4 788-0) PLT (test code = See_Comment L [Automated 777-3) message] The sy stem which generated this result transmitted reference range : 150 - 328 10*3/ ?L. The reference r corey was not used to interpret this result as normal/abnormal . MPV (test code = 9.9 fL 9.8-13 51936-1) NRBC/100 WBC (test See_Comment [Automat ed code = 7074776539) message] The system which generated this result transmitted reference range : 0.0 - 10.0 /100 WBCs. The refer ence range was not u sed to interpret th is result as normal/abnormal . NRBC x10^3 (test code <0.01 See_Comment [Auto mated = 0753084727) message] The s ystem which generated this result transmitted reference range : 10*3/?L. The reference range was not used to interpret this result as normal/abnormal . GRAN MAT (NEUT) % 55.3 % (test code = 770-8) IMM GRAN % (test code 0.20 % = 5621926101) LYMPH % (test code = 28.3 % 736-9) MONO % (test code = 12.6 % 5905-5) EOS % (test code = 3.1 % 713-8) BASO % (test code = 0.5 % 706-2) GRAN MAT x10^3(ANC) 3.20 10*3/uL 1.99-6.95 (test code = 1478654530) IMM GRAN x10^3 (test <0.03 0-0.06 code = 1473510620) LYMPH x10^3 (test code 1.64 10*3/uL 1.09-3.23 = 731-0) MONO x10^3 (test code 0.73 10*3/uL 0.36-1.02 = 742-7) EOS x10^3 (test code = 0.18 10*3/uL 0.06-0.53 711-2) BASO x10^3 (test code 0.03 10*3/uL 0.01-0.09 = 704-7) Lab Interpretation Abnormal (test code = 03359-8) [facility] WITH [id number] 23:57:00 Test Item Value Reference Range Interpretation Comments WBC (test code = See_Comment [Automated 4190-2) message] The sy stem which generated this [...] RDW-SD (test code = 49.6 fL 38.5-51.6 10768-5) RDW-CV (test code = 14.6 % 12.1-15.4 788-0) PLT (test code = See_Comment L [Automated 777-3) message] The sy stem which generated this result transmitted reference range : 150 - 328 10*3/ ?L. The reference r corey was not used to interpret this result as normal/abnormal . MPV (test code = 9.9 fL 9.8-13 20723-1) NRBC/100 WBC (test See_Comment [Automat ed code = 6815171169) message] The system which generated this result transmitted reference range : 0.0 - 10.0 /100 WBCs. The refer ence range was not u sed to interpret th is result as normal/abnormal . NRBC x10^3 (test code <0.01 See_Comment [Auto mated = 7194216813) message] The s ystem which generated this result transmitted reference range : 10*3/?L. The reference range was not used to interpret this result as normal/abnormal . GRAN MAT (NEUT) % 55.3 % (test code = 770-8) IMM GRAN % (test code 0.20 % = 6305115356) LYMPH % (test code = 28.3 % 736-9) MONO % (test code = 12.6 % 5905-5) EOS % (test code = 3.1 % 713-8) BASO % (test code = 0.5 % 706-2) GRAN MAT x10^3(ANC) 3.20 10*3/uL 1.99-6.95 (test code = 7003795035) IMM GRAN x10^3 (test <0.03 0-0.06 code = 8721098811) LYMPH x10^3 (test code 1.64 10*3/uL 1.09-3.23 = 731-0) MONO x10^3 (test code 0.73 10*3/uL 0.36-1.02 = 742-7) EOS x10^3 (test code = 0.18 10*3/uL 0.06-0.53 711-2) BASO x10^3 (test code 0.03 10*3/uL 0.01-0.09 = 704-7) Lab Interpretation Abnormal (test code = 77174-8) [facility]COR[facility]19 [id number] 21:48:00 Test Item Value Reference Range Interpretation Comments SARS-CoV-2 (test code = Not Detected Not Detected 98830-3) ALYSSA (test code = ALYSSA) ID NOW COVID-19 Assay is an isothermal nucleic acid amplification test intended for the qualitative detection of nucleic acid from SARS-CoV-2 viral RNA in nasopharyngeal (UI ARCHITECT) specimens. It is used under Emergency Use [...] indicated. Lab Interpretation Normal (test code = 77285-6) [facility] HospitalTroponin [id number] 21:44:00 Test Item Value Reference Range Interpretation Comments TROPONIN I (test 0.027 ng/mL See_Comment [Automated code = 1930915587) message] The system which generated this result [...] ? Lab Interpretation Normal (test code = 13269-8) [facility] HospitalProthrombin Time (PT) / [id number] 21:41:00 Test Item Value Reference Range Interpretation [...] tions. Lab Interpretation (test Normal code = 08284-6) [facility]N-[facility]MINAL [id number] 21:39:00 Test Item Value Reference Range Interpretation Comments NT-proBNP (test code 663 pg/mL See_Comment H [Autom ated = 7391098861) message] The system which generated this result transmitted reference range : <=450. The reference range was not used to interpret this result as normal/abnormal . ALYSSA (test code = ALYSSA) Biotin has been reported to cause a negative bias, interpret results relative to patient's use of biotin. Lab Interpretation Abnormal (test code = 17608-6) [facility] HospitalCOMP. METABOLIC PANEL (43563)2020-03-21 21:37:00 Test Item Value Reference Range Interpretation Comments NA (test code = 139 mmol/L 135-145 6329532745) K (test code = 4.1 mmol/L 3.5-5 9844223281) CL (test code = 102 mmol/L 98-108 3466085777) CO2 TOTAL (test code = 29 mmol/L 23-31 1529930311) AGAP (test code = 2-16 3810398739) BUN (test code = 18 mg/dL 7-23 7128126388) GLUCOSE (test code = 277 mg/dL 70-110 H 7766429638) CREATININE (test code = 1.23 mg/dL 0.6-1.25 2948132239) TOTAL BILI (test code = 1.3 mg/dL 0.1-1.1 H 3542077986) CALCIUM (test code = 9.8 mg/dL 8.6-10.6 5045973087) T PROTEIN (test code = 7.0 g/dL 6.3-8.2 9023297574) ALBUMIN (test code = 4.2 g/dL 3.5-5 5882691795) ALK PHOS (test code = 50 U/L 34-122 8689857663) ALTv (test code = 15 U/L 5-50 1742-6) AST(SGOT) (test code = 22 U/L 13-40 5524472326) eGFR Calculation mL/min/1.73m2 (Non-) (test code = 0978341360) eGFR Calculation mL/min/1.73m2 () (test code = 6302903197) ALYSSA (test code = ALYSSA) Association of [...] tests). Lab Interpretation Abnormal (test code = 52353-0) [facility] HospitalLipase [id number] 21:37:00 Test Item Value Reference Range Interpretation Comments LIPASE (test code = 4395271980) 161 U/L 0-220 Lab Interpretation (test code = Normal 59035-9) [facility] HospitalChes 1 [id number] 20:46:31HISTORY: Chest pain. TECHNIQUE: Portable AP view [...] noted. Mild thoracolumbar scoliosis noted.CONCLUSIONS: Mild cardiomegaly. [facility] HospitalLameic Acid Whole [id number] 20:43:00 Test Item Value Reference Range Interpretation Comments LACTIC ACID (test code = 1.91 mmol/L 0.3-2.6 8888666918) [facility] HospitalPOMT GLUCOSE (AUTOMATED)2020-03-07 20:58:00 Test Item Value Reference Range Interpretation Comments POCT GLU (test code = 7307382066) 216 mg/dL 70-110 H Lab Interpretation (test code = Abnormal 65292-3) [facility] GLUCOSE (AUTOMATED)2020-03-07 16:00:00 Test Item Value Reference Range Interpretation Comments POCT GLU (test code = 1297545122) 168 mg/dL 70-110 H Lab Interpretation (test code = Abnormal 46059-2) [facility] GLUCOSE (AUTOMATED)2020-03-07 13:07:00 Test Item Value Reference Range Interpretation Comments POCT GLU (test code = 2339697354) 148 mg/dL 70-110 H Lab Interpretation (test code = Abnormal 38516-6) [facility] HospitalTROPONIN [id number] 11:27:00 Test Item Value Reference Range Interpretation Comments TROPONIN I (test 0.051 ng/mL See_Comment H [Automated code = 1426863487) message] The system which generated this result [...] ? Lab Interpretation Abnormal (test code = 82350-3) [facility] HospitalN-TERMINAL [id number] 11:24:00 Test Item Value Reference Range Interpretation Comments NT-proBNP (test code 336 pg/mL See_Comment [Autom ated = 2024062200) message] The system which generated this result transmitted reference range : <=450. The reference range was not used to interpret this result as normal/abnormal . ALYSSA (test code = ALYSSA) Biotin has been reported to cause a negative bias, interpret results relative to patient's use of biotin. Lab Interpretation Normal (test code = 52610-7) [facility] Metabolic Panel (NA, K, CL, CO2, GLUCOSE, BUN, CREATININE, CA)2020-03-07 11:14:00 Test Item Value Reference Range Interpretation Comments NA (test code = 138 mmol/L 135-145 9038728566) K (test code = 3.8 mmol/L 3.5-5 7022839237) CL (test code = 97 mmol/L 98-108 L 3919695931) CO2 TOTAL (test code = 30 mmol/L 23-31 1333563235) AGAP (test code = 2-16 3277866443) BUN (test code = 36 mg/dL 7-23 H 8947899654) GLUCOSE (test code = 140 mg/dL 70-110 H 0975580211) CREATININE (test code = 1.50 mg/dL 0.6-1.25 H 0572879188) CALCIUM (test code = 10.0 mg/dL 8.6-10.6 2692800947) eGFR Calculation mL/min/1.73m2 (Non-) (test code = 2518554924) eGFR Calculation mL/min/1.73m2 () (test code = 8303883203) ALYSSA (test code = ALYSSA) Association of [...] tests). Lab Interpretation Abnormal (test code = 00856-2) [facility] HospitalURIC [id number] 11:14:00 Test Item Value Reference Range Interpretation Comments URIC ACID (test code = 9388630401) 5.4 mg/dL 3.6-8 Lab Interpretation (test code = Normal 74315-5) [facility] WITH [id number] 10:53:00 Test Item Value Reference Range Interpretation Comments WBC (test code = See_Comment [Automated 6690-2) message] The sy stem which generated this result transmitted reference range : 4.20 - 10.70 10*3/?L. The reference range was not used to interpret this result as normal/abnormal . RBC (test code = See_Comment L [Automated 199-8) message] The sy stem which generated this [...] RDW-SD (test code = 45.1 fL 38.5-51.6 95043-7) RDW-CV (test code = 14.2 % 12.1-15.4 788-0) PLT (test code = See_Comment [Automated 777-3) message] The sy stem which generated this result transmitted reference range : 150 - 328 10*3/ ?L. The reference r corey was not used to interpret this result as normal/abnormal . MPV (test code = 9.8 fL 9.8-13 68176-0) NRBC/100 WBC (test See_Comment [Automat ed code = 1949092935) message] The system which generated this result transmitted reference range : 0.0 - 10.0 /100 WBCs. The refer ence range was not u sed to interpret th is result as normal/abnormal . NRBC x10^3 (test code <0.01 See_Comment [Auto mated = 7074682321) message] The s ystem which generated this result transmitted reference range : 10*3/?L. The reference range was not used to interpret this result as normal/abnormal . GRAN MAT (NEUT) % 51.0 % (test code = 770-8) IMM GRAN % (test code 0.50 % = 6814851530) LYMPH % (test code = 32.0 % 736-9) MONO % (test code = 11.3 % 5905-5) EOS % (test code = 4.3 % 713-8) BASO % (test code = 0.9 % 706-2) GRAN MAT x10^3(ANC) 2.85 10*3/uL 1.99-6.95 (test code = 4774870415) IMM GRAN x10^3 (test 0.03 10*3/uL 0-0.06 code = 9590958824) LYMPH x10^3 (test code 1.79 10*3/uL 1.09-3.23 = 731-0) MONO x10^3 (test code 0.63 10*3/uL 0.36-1.02 = 742-7) EOS x10^3 (test code = 0.24 10*3/uL 0.06-0.53 711-2) BASO x10^3 (test code 0.05 10*3/uL 0.01-0.09 = 704-7) Lab Interpretation Abnormal (test code = 73665-8) [facility] GLUCOSE (AUTOMATED)2020-03-06 22:46:00 Test Item Value Reference Range Interpretation Comments POCT GLU (test code = 6035456980) 209 mg/dL 70-110 H Lab Interpretation (test code = Abnormal 02133-2) [facility] GLUCOSE (AUTOMATED)2020-03-06 16:23:00 Test Item Value Reference Range Interpretation Comments POCT GLU (test code = 9404111162) 254 mg/dL 70-110 H Lab Interpretation (test code = Abnormal 40807-6) [facility] GLUCOSE (AUTOMATED)2020-03-06 12:51:00 Test Item Value Reference Range Interpretation Comments POCT GLU (test code = 4360152930) 126 mg/dL 70-110 H Lab Interpretation (test code = Abnormal 19452-2) [facility] HospitalTROPONIN [id number] 10:16:00 Test Item Value Reference Range Interpretation Comments TROPONIN I (test 0.056 ng/mL See_Comment H [Automated code = 6645696654) message] The system which generated this result [...] ? Lab Interpretation Abnormal (test code = 97056-4) [facility] (NA, K, CL, CO2, GLUCOSE, BUN, CREATININE, CA)2020-03-06 10:13:00 Test Item Value Reference Range Interpretation Comments NA (test code = 136 mmol/L 135-145 4307749530) K (test code = 4.1 mmol/L 3.5-5 6636759788) CL (test code = 95 mmol/L 98-108 L 3162346775) CO2 TOTAL (test code = 30 mmol/L 23-31 9314041032) AGAP (test code = 2-16 2761427044) BUN (test code = 35 mg/dL 7-23 H 9214523604) GLUCOSE (test code = 174 mg/dL 70-110 H 1020477835) CREATININE (test code = 1.67 mg/dL 0.6-1.25 H 8550705884) CALCIUM (test code = 9.7 mg/dL 8.6-10.6 6260025990) eGFR Calculation mL/min/1.73m2 (Non-) (test code = 2196456128) eGFR Calculation mL/min/1.73m2 () (test code = 4734626269) ALYSSA (test code = ALYSSA) Association of [...] tests). Lab Interpretation Abnormal (test code = 09991-8) [facility] WITH [id number] 09:16:00 Test Item Value Reference Range Interpretation [...] RDW-SD (test code = 45.6 fL 38.5-51.6 78988-6) RDW-CV (test code = 14.3 % 12.1-15.4 788-0) PLT (test code = See_Comment [Automated 777-3) message] The sy stem which generated this result transmitted reference range : 150 - 328 10*3/ ?L. The reference r corey was not used to interpret this result as normal/abnormal . MPV (test code = 9.8 fL 9.8-13 27411-7) NRBC/100 WBC (test See_Comment [Automat ed code = 4762131353) message] The system which generated this result transmitted reference range : 0.0 - 10.0 /100 WBCs. The refer ence range was not u sed to interpret th is result as normal/abnormal . NRBC x10^3 (test code <0.01 See_Comment [Auto mated = 5825463741) message] The s ystem which generated this result transmitted reference range : 10*3/?L. The reference range was not used to interpret this result as normal/abnormal . GRAN MAT (NEUT) % 56.1 % (test code = 770-8) IMM GRAN % (test code 0.10 % = 3402906875) LYMPH % (test code = 29.7 % 736-9) MONO % (test code = 9.6 % 5905-5) EOS % (test code = 3.8 % 713-8) BASO % (test code = 0.7 % 706-2) GRAN MAT x10^3(ANC) 3.79 10*3/uL 1.99-6.95 (test code = 1433107766) IMM GRAN x10^3 (test <0.03 0-0.06 code = 2330301776) LYMPH x10^3 (test code 2.01 10*3/uL 1.09-3.23 = 731-0) MONO x10^3 (test code 0.65 10*3/uL 0.36-1.02 = 742-7) EOS x10^3 (test code = 0.26 10*3/uL 0.06-0.53 711-2) BASO x10^3 (test code 0.05 10*3/uL 0.01-0.09 = 704-7) Lab Interpretation Abnormal (test code = 92096-1) [facility]2020-03-06 01:25:00 Test Item Value Reference Range Interpretation Comments POCT GLU (test code = 8258243114) 208 mg/dL 70-110 H Lab Interpretation (test code = Abnormal 09367-8) [facility]TR[facility] [id number] 00:08:00 Test Item Value Reference Range Interpretation Comments TROPONIN I (test 0.047 ng/mL See_Comment H [Automated code = 3472628197) message] The system which generated this result [...] ? Lab Interpretation Abnormal (test code = 29282-0) [facility] GLUCOSE (AUTOMATED)2020-03-05 21:19:00 Test Item Value Reference Range Interpretation Comments POCT GLU (test code = 2048853340) 234 mg/dL 70-110 H Lab Interpretation (test code = Abnormal 94909-6) [facility] GLUCOSE (AUTOMATED)2020-03-05 16:55:00 Test Item Value Reference Range Interpretation Comments POCT GLU (test code = 1670585731) 258 mg/dL 70-110 H Lab Interpretation (test code = Abnormal 61966-2) [facility] GLUCOSE (AUTOMATED)2020-03-05 12:59:00 Test Item Value Reference Range Interpretation Comments POCT GLU (test code = 0838543801) 194 mg/dL 70-110 H Lab Interpretation (test code = Abnormal 98679-6) [facility] [id number] 10:54:00 Test Item Value Reference Range Interpretation Comments TROPONIN I (test 0.071 ng/mL See_Comment H [Automated code = 2752457934) message] The system which generated this result [...] ? Lab Interpretation Abnormal (test code = 32137-2) [facility] (NA, K, CL, CO2, GLUCOSE, BUN, CREATININE, CA)2020-03-05 10:43:00 Test Item Value Reference Range Interpretation Comments NA (test code = 139 mmol/L 135-145 3954806931) K (test code = 4.1 mmol/L 3.5-5 4767443133) CL (test code = 101 mmol/L 98-108 8522201013) CO2 TOTAL (test code = 27 mmol/L 23-31 5772111360) AGAP (test code = 2-16 5213609564) BUN (test code = 25 mg/dL 7-23 H 5033997999) GLUCOSE (test code = 243 mg/dL 70-110 H 7221159245) CREATININE (test code = 1.22 mg/dL 0.6-1.25 4037980453) CALCIUM (test code = 9.8 mg/dL 8.6-10.6 8009630589) eGFR Calculation mL/min/1.73m2 (Non-) (test code = 4708615133) eGFR Calculation mL/min/1.73m2 () (test code = 6807583802) ALYSSA (test code = ALYSSA) Association of [...] tests). Lab Interpretation Abnormal (test code = 67975-0) [facility] WITH [id number] 10:23:00 Test Item Value Reference Range Interpretation Comments WBC (test code = See_Comment [Automated message] 6690-2) The system [employer] generated this result transmitted ref erence range: 4.20 - 1 0.70 10*3/?L. The re ference range was not u sed to interpret this result as normal/abnor mal. RBC (test code = See_Comment [Automated message] 789-8) The system [employer] generated this result transmitted ref erence range: [...] RDW-SD (test code 47.8 fL 38.5-51.6 = 26569-3) RDW-CV (test code 14.4 % 12.1-15.4 = 788-0) PLT (test code = See_Comment [Automated message] 777-3) The system [employer] h generated this result transmitted ref erence range: 150 - 32 8 10*3/?L. The re ference range was not u sed to interpret this result as normal/abnor mal. MPV (test code = 9.8 fL 9.8-13 05428-2) NRBC/100 WBC (test See_Comment [Automat ed message] code = 4272981885) The syste m which generated this result transmitted ref erence range: 0.0 - 10 .0 /100 WBCs. The refer ence range was not u sed to interpret this result as normal/abnor mal. NRBC x10^3 (test <0.01 See_Comment [Automated message] code = 9361133570) The syste m which generated this result transmitted ref erence range: 10*3/?L. The reference range was not used to interpr et this result as normal/abnormal . GRAN MAT (NEUT) % 48.8 % (test code = 770-8) IMM GRAN % (test 0.20 % code = 5656099126) LYMPH % (test code 34.7 % = 736-9) MONO % (test code 10.8 % = 5905-5) EOS % (test code = 4.9 % 713-8) BASO % (test code 0.6 % = 706-2) GRAN MAT 2.49 10*3/uL 1.99-6.95 x10^3(ANC) (test code = 4618771727) IMM GRAN x10^3 <0.03 0-0.06 (test code = 0513873560) LYMPH x10^3 (test 1.77 10*3/uL 1.09-3.23 code = 731-0) MONO x10^3 (test 0.55 10*3/uL 0.36-1.02 code = 742-7) EOS x10^3 (test 0.25 10*3/uL 0.06-0.53 code = 711-2) BASO x10^3 (test 0.03 10*3/uL 0.01-0.09 code = 704-7) [facility]XR CHEST 1 [id number] 03:06:08 No acute cardiopulmonary process. Unchanged enlargement [...] terminating over themid to lower thoracic spine. [facility], Radiant Results Inft User - 03/04/2020 10:07 [...] reviewed this study and agree with the abovereport.[facility] CORONAVIRUS COVID-19 [id number] 00:34:00 Test Item Value Reference Range Interpretation Comments SARS-CoV-2 (test code = Not Detected Not Detected 56372-2) ALYSSA (test code = ALYSSA) ID NOW COVID-19 Assay is an isothermal nucleic acid amplification test intended for the qualitative detection of nucleic acid from SARS-CoV-2 viral RNA in nasopharyngeal (UI ARCHITECT) specimens. It is used under Emergency Use [...] indicated. Lab Interpretation Normal (test code = 84997-3) [facility] HospitalLgjazmin [id number] 00:08:00 Test Item Value Reference Range Interpretation Comments TROPONIN I (test 0.056 ng/mL See_Comment H [Automated code = 9479641326) message] The system which generated this result [...] ? Lab Interpretation Abnormal (test code = 00545-9) [facility] HospitalN-TERMINAL [id number] 00:04:00 Test Item Value Reference Range Interpretation Comments NT-proBNP (test code 562 pg/mL See_Comment H [Autom ated = 6026109215) message] The system which generated this result transmitted reference range : <=450. The reference range was not used to interpret this result as normal/abnormal . ALYSSA (test code = ALYSSA) Biotin has been reported to cause a negative bias, interpret results relative to patient's use of biotin. Lab Interpretation Abnormal (test code = 13086-6) [facility] HospitalProthrombin Time (PT) / [id number] 23:57:00 Test Item Value Reference Range Interpretation [...] tions. Lab Interpretation (test Normal code = 86868-6) [facility] HospitalBasi Metabolic Panel (NA, K, CL, CO2, GLUCOSE, BUN, CREATININE, CA)2020-03-04 23:56:00 Test Item Value Reference Range Interpretation Comments NA (test code = 139 mmol/L 135-145 9266867403) K (test code = 4.1 mmol/L 3.5-5 5662368969) CL (test code = 102 mmol/L 98-108 2115255152) CO2 TOTAL (test code = 29 mmol/L 23-31 8461931630) AGAP (test code = 2-16 0194802744) BUN (test code = 23 mg/dL 7-23 0500400260) GLUCOSE (test code = 193 mg/dL 70-110 H 8662669632) CREATININE (test code = 1.25 mg/dL 0.6-1.25 8708855369) CALCIUM (test code = 9.7 mg/dL 8.6-10.6 4023222818) eGFR Calculation mL/min/1.73m2 (Non-) (test code = 4878651587) eGFR Calculation mL/min/1.73m2 () (test code = 4534114927) ALYSSA (test code = ALYSSA) Association of [...] tests). Lab Interpretation Abnormal (test code = 45654-2) [facility] HospitalHepatic Function Panel (ALB, T.PRO, BILI T, BU/BC, ALT, AST, ALK PHOS)2020-03-04 23:56:00 Test Item Value Reference Range Interpretation Comments TOTAL BILI (test code = 2186723907) 1.1 mg/dL 0.1-1.1 BILI UNCON (test code = 7768269658) 1.1 mg/dL 0.1-1.1 BILI CONJ (test code = 3235784372) 0.0 mg/dL 0-0.3 T PROTEIN (test code = 1723790697) 7.1 g/dL 6.3-8.2 ALBUMIN (test code = 0551924618) 4.1 g/dL 3.5-5 ALK PHOS (test code = 0509998692) 61 U/L 34-122 ALTv (test code = 1742-6) 16 U/L 5-50 AST(SGOT) (test code = 0187237079) 23 U/L 13-40 Lab Interpretation (test code = Normal 35623-5) [facility] HospitalLipase [id number] 23:56:00 Test Item Value Reference Range Interpretation Comments LIPASE (test code = 0608890204) 149 U/L 0-220 Lab Interpretation (test code = Normal 96722-3) [facility] HospitalaPTT2020-04-19 23:56:00 Test Item Value Reference Range Interpretation Comments APTT Patient (test See_Comment [Automat ed code = 3173-2) message] The system which generated this result transmitted reference range : 23 - 38 Seconds . The reference range was not used to interpr et this result as normal/abnormal . ALYSSA (test code = ALYSSA) The [facility] patient population mean normal value for aPTT is 30 seconds. Lab Interpretation Normal (test code = 67848-3) [facility] HospitalCBC WITH [id number] 23:46:00 Test Item Value Reference Range Interpretation Comments WBC (test code = See_Comment [Automated 7490-2) message] The sy stem which generated this result transmitted reference range : 4.20 - 10.70 10*3/?L. The reference range was not used to interpret this result as normal/abnormal . RBC (test code = See_Comment L [Automated 530-8) message] The sy stem which generated this [...] RDW-SD (test code = 48.3 fL 38.5-51.6 58170-7) RDW-CV (test code = 14.7 % 12.1-15.4 788-0) PLT (test code = See_Comment [Automated 777-3) message] The sy stem which generated this result transmitted reference range : 150 - 328 10*3/ ?L. The reference r corey was not used to interpret this result as normal/abnormal . MPV (test code = 9.8 fL 9.8-13 85389-8) NRBC/100 WBC (test See_Comment [Automat ed code = 8830417893) message] The system which generated this result transmitted reference range : 0.0 - 10.0 /100 WBCs. The refer ence range was not u sed to interpret th is result as normal/abnormal . NRBC x10^3 (test code <0.01 See_Comment [Auto mated = 9487416674) message] The s ystem which generated this result transmitted reference range : 10*3/?L. The reference range was not used to interpret this result as normal/abnormal . GRAN MAT (NEUT) % 60.1 % (test code = 770-8) IMM GRAN % (test code 0.20 % = 0848169653) LYMPH % (test code = 26.4 % 736-9) MONO % (test code = 9.9 % 5905-5) EOS % (test code = 2.8 % 713-8) BASO % (test code = 0.6 % 706-2) GRAN MAT x10^3(ANC) 3.17 10*3/uL 1.99-6.95 (test code = 0632537719) IMM GRAN x10^3 (test <0.03 0-0.06 code = 3696633541) LYMPH x10^3 (test code 1.39 10*3/uL 1.09-3.23 = 731-0) MONO x10^3 (test code 0.52 10*3/uL 0.36-1.02 = 742-7) EOS x10^3 (test code = 0.15 10*3/uL 0.06-0.53 711-2) BASO x10^3 (test code 0.03 10*3/uL 0.01-0.09 = 704-7) Lab Interpretation Abnormal (test code = 19659-3) [facility] GLUCOSE (AUTOMATED)2020-03-02 16:04:00 Test Item Value Reference Range Interpretation Comments POCT GLU (test code = 8249486273) 214 mg/dL 70-110 H Lab Interpretation (test code = Abnormal 80652-7) [facility] GLUCOSE (AUTOMATED)2020-03-02 16:04:00 Test Item Value Reference Range Interpretation Comments POCT GLU (test code = 9780148780) 271 mg/dL 70-110 H Lab Interpretation (test code = Abnormal 56832-3) [facility] HospitalN-TERMINAL [id number] 09:43:00 Test Item Value Reference Range Interpretation Comments NT-proBNP (test code 1670 pg/mL See_Comment H [Autom ated = 7501860932) message] The system which generated this result transmitted reference range : <=450. The reference range was not used to interpret this result as normal/abnormal . ALYSSA (test code = ALYSSA) Biotin has been reported to cause a negative bias, interpret results relative to patient's use of biotin. Lab Interpretation Abnormal (test code = 76717-0) [facility] METABOLIC PANEL (NA, K, CL, CO2, GLUCOSE, BUN, CREATININE, CA)2020-03-02 09:33:00 Test Item Value Reference Range Interpretation Comments NA (test code = 143 mmol/L 135-145 9869921731) K (test code = 3.8 mmol/L 3.5-5 3731565960) CL (test code = 105 mmol/L 98-108 9094029719) CO2 TOTAL (test code = 28 mmol/L 23-31 7022635306) AGAP (test code = 2-16 7948745340) BUN (test code = 19 mg/dL 7-23 9182925909) GLUCOSE (test code = 152 mg/dL 70-110 H 0194292317) CREATININE (test code = 1.18 mg/dL 0.6-1.25 0887262983) CALCIUM (test code = 9.0 mg/dL 8.6-10.6 6525891965) eGFR Calculation mL/min/1.73m2 (Non-) (test code = 7809892305) eGFR Calculation mL/min/1.73m2 () (test code = 4538443776) ALYSSA (test code = ALYSSA) Association of [...] tests). Lab Interpretation Abnormal (test code = 23272-5) [facility] HospitalMAGNESIUM2020-04-17 09:33:00 Test Item Value Reference Range Interpretation Comments MAGNESIUM (test code = 7197007181) 1.8 mg/dL 1.7-2.4 Lab Interpretation (test code = Normal 26503-6) [facility] HospitalPOCT [facility]SE [facility]AUT[facility]ATED)2020-03-01 20:42:00 Test Item Value Reference Range Interpretation Comments POCT GLU (test code = 6840686451) 231 mg/dL 70-110 H Lab Interpretation (test code = Abnormal 53442-2) [facility] HospitalVITAMIN B12, [id number] 11:51:00 Test Item Value Reference Range Interpretation Comments VIT B12 (test code = 325 pg/mL 240-930 5163198093) ALYSSA (test code = ALYSSA) Biotin has been reported to cause a positive bias, interpret results relative to patient's use of biotin. Lab Interpretation (test Normal code = 20138-3) [facility] HospitalFOLATE2020-04-16 11:49:00 Test Item Value Reference Range Interpretation Comments FOLATE SER (test code = >20.0 3-20 H Slig ht hemolysis 6950373469) Lab Interpretation (test Abnormal code = 44122-1) [facility] HospitalPROCALCITONIN2020-04-16 10:49:00 Test Item Value Reference Range Interpretation Comments Procalcitonin (test 3.05 ng/mL <0.07 H code = 0508569730) ALYSSA (test code = ALYSSA) INTERPRETATION OF [...] lung abscess/empyema. For further information please refer to:[email or web address] Lab Interpretation Abnormal (test code = 97351-1) [facility] HospitalKATEJr [id number] 09:58:00 Test Item Value Reference Range Interpretation Comments TROPONIN I (test 0.093 ng/mL See_Comment H [Automated code = 1427310643) message] The system which generated this result [...] ? Lab Interpretation Abnormal (test code = 01221-1) [facility] HospitalN-TERMINAL [id number] 09:55:00 Test Item Value Reference Range Interpretation Comments NT-proBNP (test code 4450 pg/mL See_Comment H [Autom ated = 9261236239) message] The system which generated this result transmitted reference range : <=450. The reference range was not used to interpret this result as normal/abnormal . ALYSSA (test code = ALYSSA) Biotin has been reported to cause a negative bias, interpret results relative to patient's use of biotin. Lab Interpretation Abnormal (test code = 18582-3) [facility] HospitalBasi Metabolic Panel (NA, K, CL, CO2, GLUCOSE, BUN, CREATININE, CA)2020-03-01 09:50:00 Test Item Value Reference Range Interpretation Comments NA (test code = 141 mmol/L 135-145 8182914624) K (test code = 3.5 mmol/L 3.5-5 8761767121) CL (test code = 105 mmol/L 98-108 2020659409) CO2 TOTAL (test code = 26 mmol/L 23-31 9153109394) AGAP (test code = 2-16 3544324702) BUN (test code = 13 mg/dL 7-23 3495989954) GLUCOSE (test code = 219 mg/dL 70-110 H 8027362036) CREATININE (test code = 1.01 mg/dL 0.6-1.25 4987098894) CALCIUM (test code = 8.7 mg/dL 8.6-10.6 2628147597) eGFR Calculation mL/min/1.73m2 (Non-) (test code = 8064982673) eGFR Calculation mL/min/1.73m2 () (test code = 2216232441) ALYSSA (test code = ALYSSA) Association of [...] tests). Lab Interpretation Abnormal (test code = 00914-9) [facility] HospitalMagnesium [id number] 09:50:00 Test Item Value Reference Range Interpretation Comments MAGNESIUM (test code = 9621630910) 1.9 mg/dL 1.7-2.4 Lab Interpretation (test code = Normal 55251-3) [facility] WITH [id number] 09:22:00 Test Item Value Reference Range Interpretation [...] RDW-SD (test code = 47.8 fL 38.5-51.6 66201-2) RDW-CV (test code = 14.8 % 12.1-15.4 788-0) PLT (test code = See_Comment L [Automated 777-3) message] The sy stem which generated this result transmitted reference range : 150 - 328 10*3/ ?L. The reference r corey was not used to interpret this result as normal/abnormal . MPV (test code = 9.9 fL 9.8-13 06632-3) NRBC/100 WBC (test See_Comment [Automat ed code = 2718953782) message] The system which generated this result transmitted reference range : 0.0 - 10.0 /100 WBCs. The refer ence range was not u sed to interpret th is result as normal/abnormal . NRBC x10^3 (test code <0.01 See_Comment [Auto mated = 1333126780) message] The s ystem which generated this result transmitted reference range : 10*3/?L. The reference range was not used to interpret this result as normal/abnormal . GRAN MAT (NEUT) % 66.0 % (test code = 770-8) IMM GRAN % (test code 0.30 % = 8384242087) LYMPH % (test code = 20.8 % 736-9) MONO % (test code = 9.5 % 5905-5) EOS % (test code = 2.8 % 713-8) BASO % (test code = 0.6 % 706-2) GRAN MAT x10^3(ANC) 4.44 10*3/uL 1.99-6.95 (test code = 7888900665) IMM GRAN x10^3 (test <0.03 0-0.06 code = 6578154654) LYMPH x10^3 (test code 1.40 10*3/uL 1.09-3.23 = 731-0) MONO x10^3 (test code 0.64 10*3/uL 0.36-1.02 = 742-7) EOS x10^3 (test code = 0.19 10*3/uL 0.06-0.53 711-2) BASO x10^3 (test code 0.04 10*3/uL 0.01-0.09 = 704-7) Lab Interpretation Abnormal (test code = 03873-4) [facility] HospitalGLYCOSYLATED HEMOGLOBIN (A1C)2020-03-01 06:49:00 Test Item Value [...] Indicated Lab Interpretation Abnormal (test code = 85501-8) [facility] HospitalURIC [id number] 06:25:00 Test Item Value Reference Range Interpretation Comments URIC ACID (test code = 3260757417) 2.3 mg/dL 3.6-8 L Lab Interpretation (test code = Abnormal 51879-6) [facility] HospitalSEDIMENTATION [id number] 05:25:00 Test Item Value Reference Range Interpretation Comments ESR (test code = See_Comment H [Automated message] 1316543013) The system [employer] generated this result transmitted ref erence range: 0 - 10 m m/HR. The reference r corey was not used to interpret this result as normal/abnor mal. Lab Interpretation (test Abnormal code = 05914-0) [facility] HospitalN-TERMINAL [id number] 04:07:00 Test Item Value Reference Range Interpretation Comments NT-proBNP (test code 4080 pg/mL See_Comment H [Autom ated = 0202363684) message] The system which generated this result transmitted reference range : <=450. The reference range was not used to interpret this result as normal/abnormal . ALYSSA (test code = ALYSSA) Biotin has been reported to cause a negative bias, interpret results relative to patient's use of biotin. Lab Interpretation Abnormal (test code = 77636-7) [facility] HospitalPOCT [facility]SE (AUTOMATED)2020-03-01 03:42:00 Test Item Value Reference Range Interpretation Comments POCT GLU (test code = 2455339712) 190 mg/dL 70-110 H Lab Interpretation (test code = Abnormal 28398-2) [facility] HospitalTROPONIN [id number] 03:30:00 Test Item Value Reference Range Interpretation Comments TROPONIN I (test 0.098 ng/mL See_Comment H [Automated code = 6644842319) message] The system which generated this result [...] ? Lab Interpretation Abnormal (test code = 33716-5) [facility] HospitalHEPATIC FUNCTION PANEL (74038) (ALB,T.PRO,BILI T,BU/BC,ALT,AST,ALK PHOS)2020-03-01 03:24:00 Test Item Value Reference Range Interpretation Comments TOTAL BILI (test code = 9160903895) 2.2 mg/dL 0.1-1.1 H BILI UNCON (test code = 6476219700) 2.0 mg/dL 0.1-1.1 H BILI CONJ (test code = 1622792589) 0.0 mg/dL 0-0.3 T PROTEIN (test code = 4382074108) 6.7 g/dL 6.3-8.2 ALBUMIN (test code = 2926709413) 4.0 g/dL 3.5-5 ALK PHOS (test code = 8004153159) 48 U/L 34-122 ALTv (test code = 1742-6) 18 U/L 5-50 AST(SGOT) (test code = 4365198098) 57 U/L 13-40 H Lab Interpretation (test code = Abnormal 38824-8) [facility] HospitalPhosphorus [id number] 03:17:00 Test Item Value Reference Range Interpretation Comments PHOSPHORUS (test code = 3.1 mg/dL 2.5-5 Slig ht hemolysis 3830580792) Lab Interpretation (test Normal code = 60770-3) [facility] HospitalPROTHROMBIN TIME / [id number] 03:08:00 Test Item Value Reference Range Interpretation Comments PROTIME PATIENT (test See_Comment [Auto mated message] code = 5964-2) The system [employer] generated this result transmitted ref erence range: 12.0 - 1 4.7 Seconds. The re ference range was not u sed to interpret this result as normal/abnor mal. INR (test code = 6301-6) Nor mal INR <1.1; Warfarin Therap eutic range 2.0 to 3. 0 or 2.5 to 3.5, dep ending upon the indica tions. Lab Interpretation (test Normal code = 88963-9) [facility] HospitalCREATINE [id number] 03:01:00 Test Item Value Reference Range Interpretation Comments CK (test code = 8164385707) 68 U/L 33-194 Lab Interpretation (test code = Normal 66247-2) [facility] HospitalURIC [id number] 02:41:00 Test Item Value Reference Range Interpretation Comments URIC ACID (test code = 9365550260) 2.3 mg/dL 3.6-8 L Lab Interpretation (test code = Abnormal 01385-5) [facility] HospitalTHYROID STIMULATING [id number] 02:26:00 Test Item Value Reference Range Interpretation Comments TSH (test code = See_Comment [Automated message] 6472161438) The system [employer] generated this result transmitted ref erence range: 0.45 - 4 .70 mIU/L. The refe rence range was not u sed to interpret this result as normal/abnor mal. Lab Interpretation (test Normal code = 58673-2) [facility] HospitalN-TERMINAL [id number] 02:04:00 Test Item Value Reference Range Interpretation Comments NT-proBNP (test code 4390 pg/mL See_Comment H [Autom ated = 9847125777) message] The system which generated this result transmitted reference range : <=450. The reference range was not used to interpret this result as normal/abnormal . ALYSSA (test code = ALYSSA) Biotin has been reported to cause a negative bias, interpret results relative to patient's use of biotin. Lab Interpretation Abnormal (test code = 80779-9) [facility] HospitalMAGNESIUM2020-04-16 02:01:00 Test Item Value Reference Range Interpretation Comments MAGNESIUM (test code = 3636893152) 1.5 mg/dL 1.7-2.4 L Lab Interpretation (test code = Abnormal 33955-2) [facility] HospitalLIPASE2020-04-16 00:22:00 Test Item Value Reference Range Interpretation Comments LIPASE (test code = 2273750206) 68 U/L 0-220 Lab Interpretation (test code = Normal 55304-1) [facility] HospitalCORONAVIRUS COVID-19 [id number] 23:42:00 Test Item Value Reference Range Interpretation Comments SARS-CoV-2 (test code = Not Detected Not Detected 13503-3) ALYSSA (test code = ALYSSA) ID NOW COVID-19 Assay is an isothermal nucleic acid amplification test intended for the qualitative detection of nucleic acid from SARS-CoV-2 viral RNA in nasopharyngeal (UI ARCHITECT) specimens. It is used under Emergency Use [...] indicated. Lab Interpretation Normal (test code = 78763-1) [facility] HospitalXR CHEST 1 VW [id number] 23:26:02 No acute intrathoracic abnormality, specifically no radiographic findingsto suggest COVID-19 pneumonia. Disclaimer: Generally, the findings on chest imaging in COVID-19 are notspecific, and overlap with other infections, including influenza, H1N1,SARS and MERS. According to the Centers for Disease Control (CDC) and recent statement ofthe [employer], viral testing remains the [...] stimulating device overlie the mid thoracic spine. [facility], Radiant ResultsInft User - 02/29/2020 [...] Disease Control (CDC) and recent statement ofthe [employer], viral testing remains the only specificmethod of diagnosis. Confirmation with the viral test is required, even ifradiologic findings are suggestive of COVID-[address] Preliminary Report Dictated by Resident: Radu Boo MD., have reviewed this study and agree with theabovereport.[facility] hospitalleonard [id number] 22:59:00 Test Item Value Reference Range Interpretation Comments TROPONIN I (test 0.071 ng/mL See_Comment H [Automated code = 4192251679) message] The system which generated this result [...] ? Lab Interpretation Abnormal (test code = 92037-3) [facility] Metabolic Panel (NA, K, CL, CO2, GLUCOSE, BUN, CREATININE, CA)2020-02-29 22:48:00 Test Item Value Reference Range Interpretation Comments NA (test code = 141 mmol/L 135-145 2795093500) K (test code = 3.2 mmol/L 3.5-5 L 1872509777) CL (test code = 104 mmol/L 98-108 5898154552) CO2 TOTAL (test code = 25 mmol/L 23-31 6787264134) AGAP (test code = 2-16 2272984168) BUN (test code = 12 mg/dL 7-23 4712181476) GLUCOSE (test code = 250 mg/dL 70-110 H 6534769572) CREATININE (test code = 1.02 mg/dL 0.6-1.25 2187020723) CALCIUM (test code = 8.9 mg/dL 8.6-10.6 5967752092) eGFR Calculation mL/min/1.73m2 (Non-) (test code = 2146159062) eGFR Calculation mL/min/1.73m2 () (test code = 5444278604) ALYSSA (test code = ALYSSA) Association of [...] tests). Lab Interpretation Abnormal (test code = 62640-1) [facility] WITH [id number] 22:41:00 Test Item Value Reference Range Interpretation [...] RDW-SD (test code = 46.6 fL 38.5-51.6 59770-8) RDW-CV (test code = 14.6 % 12.1-15.4 788-0) PLT (test code = See_Comment [Automated 777-3) message] The sy stem which generated this result transmitted reference range : 150 - 328 10*3/ ?L. The reference r corey was not used to interpret this result as normal/abnormal . MPV (test code = 9.7 fL 9.8-13 L 29766-8) NRBC/100 WBC (test See_Comment [Automat ed code = 1783964172) message] The system which generated this result transmitted reference range : 0.0 - 10.0 /100 WBCs. The refer ence range was not u sed to interpret th is result as normal/abnormal . NRBC x10^3 (test code <0.01 See_Comment [Auto mated = 9969428381) message] The s ystem which generated this result transmitted reference range : 10*3/?L. The reference range was not used to interpret this result as normal/abnormal . GRAN MAT (NEUT) % 68.6 % (test code = 770-8) IMM GRAN % (test code 0.30 % = 5713299798) LYMPH % (test code = 18.6 % 736-9) MONO % (test code = 10.1 % 5905-5) EOS % (test code = 1.8 % 713-8) BASO % (test code = 0.6 % 706-2) GRAN MAT x10^3(ANC) 4.29 10*3/uL 1.99-6.95 (test code = 4696548503) IMM GRAN x10^3 (test <0.03 0-0.06 code = 5941860504) LYMPH x10^3 (test code 1.16 10*3/uL 1.09-3.23 = 731-0) MONO x10^3 (test code 0.63 10*3/uL 0.36-1.02 = 742-7) EOS x10^3 (test code = 0.11 10*3/uL 0.06-0.53 711-2) BASO x10^3 (test code 0.04 10*3/uL 0.01-0.09 = 704-7) Lab Interpretation Abnormal (test code = 22395-6) [facility]ame[facility] Whole [id number] 22:38:00 Test Item Value Reference Range Interpretation Comments LACTIC ACID (test code = 1.88 mmol/L 0.3-2.6 7758338908) [facility]ATED)2020-01-17 18:18:00 Test Item Value Reference Range Interpretation Comments POCT GLU (test code = 8223637848) 290 mg/dL 70-110 H Lab Interpretation (test code = Abnormal 02448-3) [facility]TR[facility] [id number] 18:01:00 Test Item Value Reference Range Interpretation Comments TROPONIN I (test 0.065 ng/mL See_Comment H [Automated code = 3502770311) message] The system which generated this result [...] ? Lab Interpretation Abnormal (test code = 99255-5) [facility] 17:10:00 Test Item Value Reference Range Interpretation Comments APTT Patient (test See_Comment H [Automat ed code = 3173-2) message] The system which generated this result transmitted reference range : 23 - 38 Seconds . The reference range was not used to interpr et this result as normal/abnormal . ALYSSA (test code = ALYSSA) The [facility] patient population mean normal value for aPTT is 30 seconds. Lab Interpretation Abnormal (test code = 41801-9) [facility]2020-01-17 11:59:00 Test Item Value Reference Range Interpretation Comments POCT GLU (test code = 9903523015) 185 mg/dL 70-110 H Lab Interpretation (test code = Abnormal 51445-0) [facility] HospitalTRAURAN [id number] 11:23:00 Test Item Value Reference Range Interpretation Comments TROPONIN I (test 0.073 ng/mL See_Comment H [Automated code = 4381883374) message] The system which generated this result [...] ? Lab Interpretation Abnormal (test code = 45601-3) [facility] (NA, K, CL, CO2, GLUCOSE, BUN, CREATININE, CA)2020-01-17 11:16:00 Test Item Value Reference Range Interpretation Comments NA (test code = 136 mmol/L 135-145 9607357675) K (test code = 3.3 mmol/L 3.5-5 L 5806535035) CL (test code = 101 mmol/L 98-108 2674508311) CO2 TOTAL (test code = 26 mmol/L 23-31 1279407553) AGAP (test code = 2-16 8275899053) BUN (test code = 19 mg/dL 7-23 6525960972) GLUCOSE (test code = 227 mg/dL 70-110 H 3775942428) CREATININE (test code = 1.33 mg/dL 0.6-1.25 H 3235109891) CALCIUM (test code = 9.1 mg/dL 8.6-10.6 6381648793) eGFR Calculation mL/min/1.73m2 (Non-) (test code = 6056685797) eGFR Calculation mL/min/1.73m2 () (test code = 8560048813) ALYSSA (test code = ALYSSA) Association of [...] tests). Lab Interpretation Abnormal (test code = 02830-3) [facility] 11:00:00 Test Item Value Reference Range Interpretation Comments APTT Patient (test See_Comment H [Automat ed code = 3173-2) message] The system which generated this result transmitted reference range : 23 - 38 Seconds . The reference range was not used to interpr et this result as normal/abnormal . ALYSSA (test code = ALYSSA) The [facility] patient population mean normal value for aPTT is 30 seconds. Lab Interpretation Abnormal (test code = 30069-9) [facility] WITH [id number] 10:43:00 Test Item Value Reference Range Interpretation Comments WBC (test code = See_Comment [Automated message] 6690-2) The system [employer] generated this result transmitted ref erence range: 4.20 - 1 0.70 10*3/?L. The re ference range was not u sed to interpret this result as normal/abnor mal. RBC (test code = See_Comment [Automated message] 719-8) The system [employer] generated this result transmitted ref erence range: [...] RDW-SD (test code 41.5 fL 38.5-51.6 = 75416-7) RDW-CV (test code 12.8 % 12.1-15.4 = 788-0) PLT (test code = See_Comment [Automated message] 327-3) The system [employer] generated this result transmitted ref erence range: 150 - 32 8 10*3/?L. The re ference range was not u sed to interpret this result as normal/abnor mal. MPV (test code = 10.7 fL 9.8-13 57362-1) NRBC/100 WBC (test See_Comment [Automat ed message] code = 0590092966) The syste [employer] which generated this result transmitted ref erence range: 0.0 - 10 .0 /100 WBCs. The refer ence range was not u sed to interpret this result as normal/abnor mal. NRBC x10^3 (test <0.01 See_Comment [Automated message] code = 1784451660) The syste m which generated this result transmitted ref erence range: 10*3/?L. The reference range was not used to interpr et this result as normal/abnormal . GRAN MAT (NEUT) % 56.1 % (test code = 770-8) IMM GRAN % (test 0.30 % code = 4140455330) LYMPH % (test code 29.5 % = 736-9) MONO % (test code 9.9 % = 5905-5) EOS % (test code = 3.3 % 713-8) BASO % (test code 0.9 % = 706-2) GRAN MAT 3.73 10*3/uL 1.99-6.95 x10^3(ANC) (test code = 2649292291) IMM GRAN x10^3 <0.03 0-0.06 (test code = 2860580220) LYMPH x10^3 (test 1.96 10*3/uL 1.09-3.23 code = 731-0) MONO x10^3 (test 0.66 10*3/uL 0.36-1.02 code = 742-7) EOS x10^3 (test 0.22 10*3/uL 0.06-0.53 code = 711-2) BASO x10^3 (test 0.06 10*3/uL 0.01-0.09 code = 704-7) [facility] GLUCOSE (AUTOMATED)2020-01-17 01:49:00 Test Item Value Reference Range Interpretation Comments POCT GLU (test code = 5149796229) 305 mg/dL 70-110 H Lab Interpretation (test code = Abnormal 34577-6) [facility] GLUCOSE (AUTOMATED)2020-01-17 00:01:00 Test Item Value Reference Range Interpretation Comments POCT GLU (test code = 0105126290) 271 mg/dL 70-110 H Lab Interpretation (test code = Abnormal 84232-3) [facility] 22:23:00 Test Item Value Reference Range Interpretation Comments APTT Patient (test See_Comment H [Automat ed code = 3173-2) message] The system which generated this result transmitted reference range : 23 - 38 Seconds . The reference range was not used to interpr et this result as normal/abnormal . ALYSSA (test code = ALYSSA) The [facility] patient population mean normal value for aPTT is 30 seconds. Lab Interpretation Abnormal (test code = 43898-4) [facility]TR[facility] [id number] 21:22:00 Test Item Value Reference Range Interpretation Comments TROPONIN I (test 0.061 ng/mL See_Comment H [Automated code = 8525350178) message] The system which generated this result [...] ? Lab Interpretation Abnormal (test code = 74998-1) [facility]2020-01-16 17:37:00 Test Item Value Reference Range Interpretation Comments POCT GLU (test code = 3461714016) 271 mg/dL 70-110 H Lab Interpretation (test code = Abnormal 09835-2) [facility]2020-[facility]-02 12:47:00 Test Item Value Reference Range Interpretation Comments APTT Patient (test See_Comment HH [Automat ed code = 3173-2) message] The system which generated this result transmitted reference range : 23 - 38 Seconds . The reference range was not used to interpr et this result as normal/abnormal . ALYSSA (test code = ALYSSA) The [facility] patient population mean normal value for aPTT is 30 seconds. Lab Interpretation Abnormal (test code = 29050-8) [facility]TR[facility] [id number] 12:35:00 Test Item Value Reference Range Interpretation Comments TROPONIN I (test 0.074 ng/mL See_Comment H [Automated code = 4615373068) message] The system which generated this result [...] ? Lab Interpretation Abnormal (test code = 16429-1) [facility] HospitalLIPID PANEL (53987)(TOTAL CHOLESTEROL, TRIGLYCERIDES, HDL)2020-01-16 12:23:00 Test Item Value Reference Range Interpretation Comments CHOL (test code = 95 mg/dL 120-200 L 7310077127) HDL (test code = 44 mg/dL >40 6406679862) HDLC RATIO (test code = See_Comment [Au tomated message] 8836891355) The system [employer] generated this result transmitted ref erence range: <=5.0. T he reference range was not used to int erpret this result as normal/abnormal . TRIG (test code = 89 mg/dL 30-170 6321394998) LDL CHOL (test code = 33 mg/dL See_Comment [Auto mated message] 76536-9) The system [employer] generated this result transmitted ref erence range: <=160. T he reference range was not used to int erpret this result as normal/abnormal . VLDL (test code = 18 mg/dL 5-60 5263041312) Lab Interpretation (test Abnormal code = 26567-9) [facility] HospitalGlycosylated Hemoglobin (A1C)2020-01-16 09:03:00 Test Item Value Reference Interpretation Comments Range HGB A1C (test code = See_Comment H [Autom ated 3028-4) message] The system which generated this result transmitted reference range : 4.0 - 6.0 % NGSP. The reference range was not used to interpret this result as normal/abnormal . ALYSSA (test code = %A1C (NGSP) ALYSSA) Interpretation (ADA)4.8-5.6 ? ? Normal or (Non-Diabetic Range)5.7-6.4 ? ? Increased Risk (Pre-Diabetic)>6.5 ?Diabetes Indicated Lab Interpretation Abnormal (test code = 77243-3) [facility] HospitalCritical [id number] 05:48:18NeCharanjit epps MD ? ? 01/15/2020 11:48 [...] review of old charts and examination of patientUnSt. Luke's Health [facility] LufkinProthrombin Time (PT) / [id number] 05:28:00 Test Item Value Reference Range Interpretation [...] tions. Lab Interpretation (test Normal code = 67870-2) [facility]aPTT2020-03-02 05:27:00 Test Item Value Reference Range Interpretation Comments APTT Patient (test See_Comment [Automat ed code = 3173-2) message] The system which generated this result transmitted reference range : 23 - 38 Seconds . The reference range was not used to interpr et this result as normal/abnormal . ALYSSA (test code = ALYSSA) The [facility] patient population mean normal value for aPTT is 30 seconds. Lab Interpretation Normal (test code = 81691-7) [facility] HospitalTroponin [id number] 05:11:00 Test Item Value Reference Range Interpretation Comments TROPONIN I (test 0.075 ng/mL See_Comment H [Automated code = 5191222219) message] The system which generated this result [...] ? Lab Interpretation Abnormal (test code = 10770-4) [facility] HospitalN-TERMINAL [id number] 05:08:00 Test Item Value Reference Range Interpretation Comments NT-proBNP (test code 896 pg/mL See_Comment H [Autom ated = 9721816247) message] The system which generated this result transmitted reference range : <=450. The reference range was not used to interpret this result as normal/abnormal . ALYSSA (test code = ALYSSA) Biotin has been reported to cause a negative bias, interpret results relative to patient's use of biotin. Lab Interpretation Abnormal (test code = 25329-3) [facility] HospitalBasi Metabolic Panel (NA, K, CL, CO2, GLUCOSE, BUN, CREATININE, CA)2020-01-16 04:59:00 Test Item Value Reference Range Interpretation Comments NA (test code = 136 mmol/L 135-145 3696244791) K (test code = 4.0 mmol/L 3.5-5 3210648222) CL (test code = 101 mmol/L 98-108 3566518335) CO2 TOTAL (test code = 27 mmol/L 23-31 7682443217) AGAP (test code = 2-16 5037797427) BUN (test code = 17 mg/dL 7-23 2680742699) GLUCOSE (test code = 445 mg/dL 70-110 H 3592566379) CREATININE (test code = 1.29 mg/dL 0.6-1.25 H 5194485733) CALCIUM (test code = 8.8 mg/dL 8.6-10.6 1682415861) eGFR Calculation mL/min/1.73m2 (Non-) (test code = 7412698803) eGFR Calculation mL/min/1.73m2 () (test code = 6737691798) ALYSSA (test code = ALYSSA) Association of [...] tests). Lab Interpretation Abnormal (test code = 89716-6) [facility] HospitalHepatic Function Panel (ALB, T.PRO, BILI T, BU/BC, ALT, AST, ALK PHOS)2020-01-16 04:59:00 Test Item Value Reference Range Interpretation Comments TOTAL BILI (test code = 7326809223) 1.3 mg/dL 0.1-1.1 H BILI UNCON (test code = 8807073866) 1.1 mg/dL 0.1-1.1 BILI CONJ (test code = 8231264529) 0.0 mg/dL 0-0.3 T PROTEIN (test code = 6466646645) 6.3 g/dL 6.3-8.2 ALBUMIN (test code = 7342176141) 3.9 g/dL 3.5-5 ALK PHOS (test code = 0136687651) 67 U/L 34-122 ALTv (test code = 1742-6) 15 U/L 5-50 AST(SGOT) (test code = 1019264498) 23 U/L 13-40 Lab Interpretation (test code = Abnormal 27032-0) [facility] 1 [id number] 04:54:13Impression: Moderate cardiomegaly without acute pulmonary process. RL: 460 AFC: [id number] Indication: Chest pain Comparison: None available Findings: Single AP view of the chest. The cardiopericardial silhouette ismoderately enlarged. The lungs are clear bilaterally. The visualized bonythorax is intact. A thoracic neurostimulator device is in place. Armb, Radiant Results Inft User - 01/15/2020 10:55 PM CSTIndication: Chest painComparison: None availableFindings: Single AP view of the chest. The cardiopericardial silhouette ismoderately enlarged. The lungs are clear bilaterally. The visualized bonythorax is intact. A thoracic neurostimulator device is in place.IMPRESSIONImpression:Moderate cardiomegaly without acute pulmonary process.RL: 460AFC: [id number] signed by Esperanza Rosado MD, PhD at 01/15/2020 10:54 PMUnK[facility] WITH [id number] 04:51:00 Test Item Value Reference Range Interpretation Comments WBC (test code = See_Comment [Automated 2990-2) message] The sy stem which generated this result transmitted reference range : 4.20 - 10.70 10*3/?L. The reference range was not used to interpret this result as normal/abnormal . RBC (test code = See_Comment L [Automated 549-8) message] The sy stem which generated this [...] RDW-SD (test code = 40.7 fL 38.5-51.6 79455-2) RDW-CV (test code = 12.8 % 12.1-15.4 788-0) PLT (test code = See_Comment L [Automated 777-3) message] The sy stem which generated this result transmitted reference range : 150 - 328 10*3/ ?L. The reference r corey was not used to interpret this result as normal/abnormal . MPV (test code = 10.6 fL 9.8-13 19426-5) IPF % (test code = 2.8 % 1.2-10.7 Platelet count 9291480454) measured by fluorescence method. NRBC/100 WBC (test See_Comment [Automat ed code = 2612101778) message] The system which generated this result transmitted reference range : 0.0 - 10.0 /100 WBCs. The refer ence range was not u sed to interpret th is result as normal/abnormal . NRBC x10^3 (test code <0.01 See_Comment [Auto mated = 0662553097) message] The s ystem which generated this result transmitted reference range : 10*3/?L. The reference range was not used to interpret this result as normal/abnormal . GRAN MAT (NEUT) % 56.0 % (test code = 770-8) IMM GRAN % (test code 0.20 % = 2722913610) LYMPH % (test code = 30.5 % 736-9) MONO % (test code = 9.6 % 5905-5) EOS % (test code = 2.8 % 713-8) BASO % (test code = 0.9 % 706-2) GRAN MAT x10^3(ANC) 2.98 10*3/uL 1.99-6.95 (test code = 6037900219) IMM GRAN x10^3 (test <0.03 0-0.06 code = 3224609870) LYMPH x10^3 (test code 1.62 10*3/uL 1.09-3.23 = 731-0) MONO x10^3 (test code 0.51 10*3/uL 0.36-1.02 = 742-7) EOS x10^3 (test code = 0.15 10*3/uL 0.06-0.53 711-2) BASO x10^3 (test code 0.05 10*3/uL 0.01-0.09 = 704-7) Lab Interpretation Abnormal (test code = 23436-2) [facility]"
[2021-12-03] MEDS ORDERED: MORPHINE 2 MG/ML SYR ONE (18:42)
[2021-12-03] MEDS ORDERED: ONDANSETRON 4 MG/2 ML VIAL ONE (18:42)
[2021-12-03] MEDS ORDERED: DIAZEPAM 5 MG TABLET ONE (18:42)
[2021-12-03 18:46] LABS: Absolute Lymphocytes (CBC) 1.4 K/uL (0.7-4.9); Hematocrit 34.6 % (39.6-49.0); Lymphocytes % 21.9 % (15.3-44.8); MPV 7.3 fL (7.6-11.3)
[2021-12-03 18:48] LABS: Protime INR 1.15
[2021-12-03 19:07] LABS: Albumin 3.5 g/dL (3.4-5.0); Bilirubin Direct 0.3 mg/dL (0-0.2); Bilirubin Total 1.2 mg/dL (0.2-1.0); Magnesium 2.1 mg/dL (1.8-2.4); Potassium 4.3 mmol/L (3.5-5.1); Protein, Total 7.5 g/dL (6.4-8.2)
[2021-12-03 19:10] LABS: Troponin High Sensitivity 88.9 pg/mL (<58.9)
--- NOTE | 2021-12-03 19:35 | RAD REPORT ---
EXAM DESCRIPTION: CT - Head C Spine Cap Wo Con - 12/03/2021 7:08 pm TECHNIQUE: Computed axial tomography of the head and cervical spine was obtained. Coronal and sagitt al reconstruction was performed Computed axial tomography of the chest, abdomen and pelvis was obtained. Contrast was not requested. All CT scans are performed using dose optimization technique as appropriate and may include automated exposure control or mA/KV adjustment according to patient size. CLINICAL HISTORY: Head and neck injury with chest and abdominal pain status post fall COMPARISON: CT abdomen December 01 2021 FINDINGS: An intracranial bleed is not seen. Mild to moderate low-density areas within periventricular, deep an d subcortical white matter probably ischemic changes secondary to small vessel disease. The ventricles are normal in caliber. An extra-axial fluid collection is not noted. . Fluid within the sinuses/mastoids is not seen. A cervical fracture is not seen. No dislocation is noted. Moderate spondylosis involves the cervical spine. The evaluation of mediastinum, camille, vessels, solid organs and bowel are limited secondary to the lac k of contrast administration. A mediastinal hematoma is not noted. A pleural effusion is not seen. A lung contusion is not present. The liver,spleen, pancreas, adrenals,kidneys and bladder do not demonstrate a traumatic injury. Postsurgical changes involve spine and left pelvis. Neurostimulator device in place. Penile implant p resent. A right nephrectomy IMPRESSION: 1. No acute intracranial abnormality is seen. 2. A cervical fracture is not visualized. If the patient continues have symptoms to suggest intracran ial/spinal cord pathology MRI be recommended 3. No traumatic abnormality involving the chest/abdomen/pelvis.
--- NOTE | 2021-12-03 19:36 | RAD REPORT ---
EXAM DESCRIPTION: [place] Single View12/03/2021 6:28 pm CLINICAL HISTORY: cough COMPARISON: 2019 FINDINGS: The lungs appear clear of acute infiltrate. The heart is mildly enlarged IMPRESSION: No acute abnormalities displayed
--- NOTE | 2021-12-03 19:47 | ER ---
Nurse's Notes [facility] Name: Demetrius Sarmiento Age: 81 yrs Sex: Male : 1940 Arrival Date: 12/03/2021 Time: 17:46 Bed 2 Private MD: Diagnosis: Strain of muscle, fascia and tendon at neck level;Chest pain, unspecified;Unspecified kidney failure-chronic;Other chronic pain;Abnormal levels of other serum enzymes-troponin Presentation: 12/03 17:57 Chief complaint: Patient states: pt presented to ED reporting left neck pain that michael radiates to back and to knees. pt denies any injuries or falls. Coronavirus screen: Vaccine status: Patient reports receiving the 2nd dose of the covid vaccine. Ebola Screen: Patient denies travel to an Ebola-affected area in the 21 days before illness onset. Initial Sepsis Screen: Does the patient meet any 2 criteria? No. Patient's initial sepsis screen is negative. Does the patient have a suspected source of infection? No. Patient's initial sepsis screen is negative. Risk Assessment: Do you want to hurt yourself or someone else? Patient reports no desire to harm self or others. Onset of symptoms was December 03, 2021. 17:57 Method Of Arrival: [facility] 17:57 Acuity: LANCE 4 michael Triage Assessment: 18:03 General: Appears in no apparent distress. Behavior is calm, cooperative. michael Historical: - Home Meds: 18:01 aspirin 81 mg Oral TbEC 1 tab once daily [Active]; atorvastatin 40 mg Oral tab 1 tab michael nightly [Active]; donepezil 5 mg Oral tab 1 tab nightly [Active]; furosemide 20 mg Oral tab 1 tab once daily [Active]; isosorbide mononitrate 60 mg Oral Tb24 1.5 tabs once daily [Active]; isosorbide mononitrate 120 mg Oral Tb24 1 tab once daily [Active]; Januvia 50 mg Oral tab 1 tab once daily [Active]; lisinopril 5 mg Oral tab 1 tab once daily [Active]; potassium chloride 10 mEq Oral TbER 1 tab once daily [Active]; - PMHx: 18:01 CAD; michael 18:02 cardiac arrest; CHF; chronic kidney disease; Chronic pain; Diabetes - IDDM; michael Hypertension; High Cholesterol; Myocardial infarction; - Immunization history:: Adult Immunizations up to date. - Social history:: Smoking status: Patient reports the use of cigarette tobacco products, Patient/guardian denies using tobacco, but has a distant history of tobacco abuse. - Family history:: not pertinent. Screenin:02 Abuse screen: Denies threats or abuse. Denies injuries from another. Nutritional michael screening: No deficits noted. Tuberculosis screening: No symptoms or risk factors identified. Fall Risk Gait- Weak (10 pts.). Assessment: 18:00 Pain: Complains of pain in back of left leg and back Pain radiates to back of left leg michael and back. Musculoskeletal: Reports pain in left base of the skull Pain is 8 out of 10 on a pain scale. 21:59 Reassessment: attempted report to 2nd floor. nurse busy and unable to take report. [facility] Vital Signs: 17:57 BP 107 / 63; Pulse 56; Resp 18; Temp 97.9(O); Pulse Ox 97% on R/A; Weight 79.38 kg; michael Height 5 ft. 7 in. (170.18 cm); 19:38 BP 104 / 71 LA; sf1 19:38 BP 90 / 60 RA; sf1 19:38 Pulse 101; Resp 16; Pulse Ox 99% on R/A; Pain 4/10; sf1 21:14 BP 116 / 64; Pulse 96; Resp 19; Pulse Ox 100% ; sm5 17:57 Body Mass Index 27.41 (79.38 kg, 170.18 cm) ED Course: 17:46 Patient arrived in ED. jr8 18:00 Triage completed. michael 18:02 Patient has correct armband on for positive identification. Bed in low position. michael 18:02 No provider procedures requiring assistance completed. michael 18:03 Arm band placed on. michael 18:04 Michael Ortega MD is Attending Physician. tadeo 18:28 XRAY Chest (1 view) In Process Unspecified. EDMS 19:08 CT Traumagram (Head C Spine CAP wo con) In Process Unspecified. EDMS 19:35 Ignacio Blandon DO is Hospitalizing Provider. tadeo 19:38 Steph Holman RN is Primary Nurse. sf1 20:34 Troponin High Sensitivity Sent. 5 20:34 COVID-19 SARS RT PCR (Document "Date of Onset" if Symptomatic) Sent. 5 Administered Medications: 18:44 Drug: morphine 2 mg Route: IVP; Site: right antecubital; michael 18:44 Drug: Zofran (Ondansetron) 4 mg Route: IVP; Site: left antecubital; michael 18:45 Follow up: Response: No adverse reaction michael 18:44 Drug: Valium (diazepam) 5 mg Route: PO; michael 18:44 Follow up: Response: No adverse reaction michael 18:45 Drug: morphine 2 mg Route: IVP; Site: right antecubital; michael Outcome: 19:47 Decision to Hospitalize by Provider. [facility] 22:34 Patient left the ED. sf1 Signatures: Dispatcher [employer] EDMS Michael Ortega MD MD cha Roszak, Josh, PA PA jr8 Vanessa Batres RN RN sm5 Alison-StageAllegra cano RN RN ha Fillers, Samantha, RN RN sf1
--- NOTE | 2021-12-03 19:48 | EDPHYS ---
Physician Documentation [facility] Name: Demetrius Sarmiento Age: 81 yrs Sex: Male : 1940 Arrival Date: 12/03/2021 Time: 17:46 Bed 2 Private MD: ED Physician Michael Ortega HPI: 12/03 18:20 This 81 yrs old Male presents to ER via EMS with complaints of NECK PAIN TO [facility] LEG. 18:20 The patient or guardian complains of decreased range of motion, pain, that is acute. [facility] The symptoms are located at the C1, C2, C3, C4, C5, C6 and C7. Onset: The symptoms/episode began/occurred 3 day(s) ago. Context: The problem was sustained at an unknown location, The neck injury/problem resulted from from unknown cause. The patient presents with pain that is acute, with no known mechanism of injury, that is chronic, and decreased range of motion. The symptoms are located in the cervical spine. Onset: The symptoms/episode began/occurred 3 day(s) ago. The pain radiates to the left scapular area, left subscapular area, left low back and left mid back. The problem was sustained from unknown cause. Modifying factors: The patient symptoms are alleviated by remaining still, rest, the patient symptoms are aggravated by any movement, walking. Historical: - Home Meds: 18:01 aspirin 81 mg Oral TbEC 1 tab once daily [Active]; atorvastatin 40 mg Oral tab 1 tab michael nightly [Active]; donepezil 5 mg Oral tab 1 tab nightly [Active]; furosemide 20 mg Oral tab 1 tab once daily [Active]; isosorbide mononitrate 60 mg Oral Tb24 1.5 tabs once daily [Active]; isosorbide mononitrate 120 mg Oral Tb24 1 tab once daily [Active]; Januvia 50 mg Oral tab 1 tab once daily [Active]; lisinopril 5 mg Oral tab 1 tab once daily [Active]; potassium chloride 10 mEq Oral TbER 1 tab once daily [Active]; - PMHx: 18:01 CAD; michael 18:02 cardiac arrest; CHF; chronic kidney disease; Chronic pain; Diabetes - IDDM; michael Hypertension; High Cholesterol; Myocardial infarction; - Immunization history:: Adult Immunizations up to date. - Social history:: Smoking status: Patient reports the use of cigarette tobacco products, Patient/guardian denies using tobacco, but has a distant history of tobacco abuse. - Family history:: not pertinent. ROS: 18:20 Constitutional: Negative for fever, chills, and weight loss, Eyes: Negative for injury, tadeo pain, redness, and discharge, Neck: Negative for injury, pain, and swelling, Cardiovascular: Negative for chest pain, palpitations, and edema, Respiratory: Negative for shortness of breath, cough, wheezing, and pleuritic chest pain, Abdomen/GI: Negative for abdominal pain, nausea, vomiting, diarrhea, and constipation, Back: Negative for injury and pain, : Negative for injury, bleeding, discharge, and swelling, MS/Extremity: Negative for injury and deformity, Skin: Negative for injury, rash, and discoloration, Neuro: Negative for headache, weakness, numbness, tingling, and seizure. 18:20 ENT: Positive for 18:20 Neck: Positive for pain with movement, pain at rest. Exam: 18:20 Constitutional: This is a well developed, well nourished patient who is awake, alert, tadeo and in no acute distress. Head/Face: Normocephalic, atraumatic. Eyes: Pupils equal round and reactive to light, extra-ocular motions intact. Lids and lashes normal. Conjunctiva and sclera are non-icteric and not injected. Cornea within normal limits. Periorbital areas with no swelling, redness, or edema. ENT: Nares patent. No nasal discharge, no septal abnormalities noted. Tympanic membranes are normal and external auditory canals are clear. Oropharynx with no redness, swelling, or masses, exudates, or evidence of obstruction, uvula midline. Mucous membranes moist. Chest/axilla: Normal chest wall appearance and motion. Nontender with no deformity. No lesions are appreciated. Cardiovascular: Regular rate and rhythm with a normal S1 and S2. No gallops, murmurs, or rubs. Normal PMI, no JVD. No pulse deficits. Respiratory: Lungs have equal breath sounds bilaterally, clear to auscultation and percussion. No rales, rhonchi or wheezes noted. No increased work of breathing, no retractions or nasal flaring. Abdomen/GI: Soft, non-tender, with normal bowel sounds. No distension or tympany. No guarding or rebound. No evidence of tenderness throughout. Back: No spinal tenderness. No costovertebral tenderness. Full range of motion. Male : Normal genitalia with no discharge or lesions. Skin: Warm, dry with normal turgor. Normal color with no rashes, no lesions, and no evidence of cellulitis. MS/ Extremity: Pulses equal, no cyanosis. Neurovascular intact. Full, normal range of motion. Neuro: Awake and alert, GCS 15, oriented to person, place, time, and situation. Cranial nerves II-XII grossly intact. Motor strength 5/5 in all extremities. Sensory grossly intact. Cerebellar exam normal. Normal gait. Psych: Awake, alert, with orientation to person, place and time. Behavior, mood, and affect are within normal limits. 18:20 Neck: External neck: is normal, C-spine: no acute changes, Thyroid: appears normal, Trachea: is midline with no obvious abnormalities, ROM/movement: pain, that is mild, with any movement, limited range of motion, that is moderate, Meningeal signs: are not present, nuchal rigidity, is not appreciated. 18:20 Cardiovascular: Rate: bradycardic, actual rate is 56 bpm, Rhythm: regular, Pulses: Pulses are 4+ in bilateral radial, brachial, femoral, popliteal, posterior tibial and and dorsalis pedis arteries.. Heart sounds: normal, Edema: is not appreciated, JVD: is not appreciated. 18:41 ECG was reviewed by the Attending Physician. [facility] Vital Signs: 17:57 BP 107 / 63; Pulse 56; Resp 18; Temp 97.9(O); Pulse Ox 97% on R/A; Weight 79.38 kg; michael Height 5 ft. 7 in. (170.18 cm); 19:38 BP 104 / 71 LA; sf1 19:38 BP 90 / 60 RA; sf1 19:38 Pulse 101; Resp 16; Pulse Ox 99% on R/A; Pain 4/10; sf1 21:14 BP 116 / 64; Pulse 96; Resp 19; Pulse Ox 100% ; sm5 17:57 Body Mass Index 27.41 (79.38 kg, 170.18 cm) michael MDM: 18:04 Patient medically screened. [facility] 18:28 Differential diagnosis: arthritis, C-Spine Fracture Cervical Disc Herniation Cervical tadeo Raiculopathy arthritis, chronic back pain, Fracture Hydronephrosis Neoplasm ruptured disc, sickle cell crisis, sprain, Ureterolithiasis cervical strain, Degenerative Disc Disease fracture, Neck Contusion Osteoarthritis Spondylolisthesis Spondylosis subluxation, Thoracic Outlet Syndrome. Data reviewed: vital signs, nurses notes, lab test result(s), EKG, radiologic studies, CT scan, plain films. Data interpreted: clinical engineer: rate is 56 beats/min, rhythm is regular, Pulse oximetry: on room air is 97 %. Test interpretation: by ED physician or midlevel provider: ECG, plain radiologic studies. Counseling: I had a detailed discussion with the patient and/or guardian regarding: the historical points, exam findings, and any diagnostic results supporting the discharge/admit diagnosis, lab results, radiology results, the need for outpatient follow up, a supervisor [employer], a family practitioner. 12/03 18:12 Order name: Basic Metabolic Panel; Complete Time: 19:35 tadeo 12/03 18:12 Order name: CBC with Diff; Complete Time: 19:35 12/03 18:12 Order name: LFT's; Complete Time: 19:35 12/03 18:12 Order name: Magnesium; Complete Time: 19:35 12/03 18:12 Order name: NT PRO-BNP; Complete Time: 19:35 12/03 18:12 Order name: PT-INR; Complete Time: 19:35 12/03 18:12 Order name: Troponin HS; Complete Time: 19:35 tadeo 12/03 18:12 Order name: XRAY Chest (1 view); Complete Time: 19:51 tadeo 12/03 18:12 Order name: Lipase; Complete Time: 19:35 tadeo 12/03 19:59 Order name: COVID-19 SARS RT PCR (Document "Date of Onset" if Symptomatic) lp1 12/03 20:21 Order name: Troponin High Sensitivity [facility] 12/03 20:21 Order name: Troponin High Sensitivity EDMS 12/03 18:12 Order name: EKG; Complete Time: 18:13 tadeo 12/03 18:12 Order name: Cardiac monitoring; Complete Time: 18:39 tadeo 12/03 18:12 Order name: EKG - Nurse/Tech; Complete Time: 18:39 tadeo 12/03 18:12 Order name: IV Saline Lock; Complete Time: 18:39 [facility] 12/03 18:12 Order name: Labs collected and sent; Complete Time: 18:39 [facility] 12/03 18:12 Order name: O2 Per Protocol; Complete Time: 18:39 [facility] 12/03 18:12 Order name: O2 Sat Monitoring; Complete Time: 18:39 [facility] 12/03 18:12 Order name: Urine Dipstick-Ancillary (obtain specimen) [facility] 12/03 18:13 Order name: CT Traumagram (Head C Spine CAP wo con); Complete Time: 19:51 [facility] 12/03 18:13 Order name: Bilateral blood pressure; Complete Time: 19:38 [facility] EC:41 Rate is 106 beats/min. Rhythm is regular. QRS [place] is Normal. MS interval is normal. tadeo QRS interval is normal. QT interval is normal. No Q waves. T waves are Normal. No ST changes noted. Clinical impression: LVH, Sinus tachycardia, and No evidence of ischemia. Interpreted by me. Reviewed by me. Administered Medications: 18:44 Drug: morphine 2 mg Route: IVP; Site: right antecubital; michael 18:44 Drug: Zofran (Ondansetron) 4 mg Route: IVP; Site: left antecubital; michael 18:45 Follow up: Response: No adverse reaction michael 18:44 Drug: Valium (diazepam) 5 mg Route: PO; michael 18:44 Follow up: Response: No adverse reaction michael 18:45 Drug: morphine 2 mg Route: IVP; Site: right antecubital; michael Disposition Summary: 12/03/21 19:47 Hospitalization Ordered Hospitalization Status: Observation [facility] Provider: Ignacio Blandon cha Location: Telemetry/MedSurg (observation) tadeo Condition: Stable tadeo Problem: new tadeo Symptoms: have improved tadeo Bed/Room Type: Standard [facility] Room Assignment: 211(12/03/21 21:45) mw Diagnosis - Strain of muscle, fascia and tendon at neck level tadeo - Chest pain, unspecified tadeo - Unspecified kidney failure - chronic tadeo - Other chronic pain tadeo - Abnormal levels of other serum enzymes - troponin [facility] Discharge Instructions: - Discharge Summary Sheet tadeo - Cervical Radiculopathy tadeo - Cervical Sprain tadeo - Cervical Sprain, [id number] tadeo - Cervical Radiculopathy, [id number] tadeo Forms: - Medication Reconciliation Form tadeo - SBAR form [facility] Prescriptions: - methocarbamol 750 mg Oral tablet - take 1 tablet by ORAL route 4 times per day; 28 tablet; Refills: 0, Product tadeo Selection Permitted - Medrol (Nasir) 4 mg Oral Tablets, Dose Pack - take 1 tablet by ORAL route as directed - follow package instructions; 1 tadeo packet; Refills: 0, Product Selection Permitted - Tylenol-Codeine #3 300 mg-30 mg Oral - take 1 tablet by ORAL route every 4-6 hours; 20 tablet; Refills: 0, Product tadeo Selection Permitted Signatures: Dispatcher [employer] EDMS Mary Arceo RN Michael Rodriguez MD MD cha Attema, Lee, PULLEY MORTISER OPERATOR-C PULLEY MORTISER OPERATOR-Cla1 Au-StagerAllegra RN RN michael Corrections: (The following items were deleted from the chart) 18:18 18:14 Head C Spine MPR Wo Con+CT.RAD.BRZ ordered. EDMS EDMS 18:18 18:14 Angio Aorta For Dissection+CT.RAD.BRZ ordered. EDMS EDMS 21:45 19:47 tadeo barry
--- NOTE | 2021-12-03 20:43 | P.HP ---
Certification for Inpatient Patient admitted to: Observation Patient will require the following post-hospital care: None Practitioner: I am a practitioner with admitting privileges, knowledge of patient current condition, hospital course, and medical plan of care. Services: Services provided to patient in accordance with Admission requirements found in Title 42 Section 412.3 of the Code of Federal Regulations Patient History Date of Service: 12/03/21 Primary Care Provider: Dr. Costello Reason for admission: Chest pain, neck pain History of Present Illness: 81-year-old male with history of CAD, CHF, diabetes mellitus type 2, hypertension, hyperlipidemia presents emergency department for left-sided neck pain, chest pain. Patient was recently admitted to hospital on 11/30/2021 for chest pain, patient had cardiac catheterization with diagnosis of severe mid LAD in-stent restenosis with heavy calcium load, severe proximal RCA in-stent steno sis with heavily calcium load, difficult radial access. Patient had shockwave lithotripsy and balloon angioplasty using groin access at that time. Patient was cleared by cardiology and discharged home on aspirin, Plavix, beta-raven and other home medications. After getting home patient reported that he developed left-sided neck pain which has worsened over the course of the last 2 to 3 days, at this time patient states pain is severe limiting his mobility. Also reports intermittent chest pain. Labs are significant for creatinine 1.8 BUN 24 GFR 36 glucose 225 troponin high-sensitivity 88.9 BNP 1697 chest x-ray negative for any acute findings CT head C-spine chest abdomen pelvis also negative for any acute findings. Patient received multiple doses of IV pain medication, Lidoderm patch as well as Valium for pain still with significant neck pain and intermittent chest pain and borderline troponin, ED provider wishes to admit under observation for further evaluation and management. Allergies No Known Allergies Allergy (Verified 03/10/20 01:08) Home Medications: Atorvastatin Calcium 1 tab PO BEDTIME 03/10/20 Insulin Glargine Human [Lantus*] 10 unit SQ BEDTIME 03/10/20 Donepezil HCl [Aricept] 5 mg PO BEDTIME 03/17/20 Furosemide [Lasix*] 20 mg PO DAILY 03/17/20 Isosorbide Mononitrate [Isosorbide Mononitrate ER] 120 tab PO DAILY 09/24/20 Lisinopril [Zestril] 5 mg PO DAILY 09/24/20 Sitagliptin Phosphate [Januvia*] 50 mg PO DAILY 09/24/20 Aspirin 1 tab PO DAILY #30 tab.chew 10/29/21 Clopidogrel Bisulfate [Plavix*] 75 mg PO DAILY #30 tablet 10/29/21 Metoprolol Tartrate [Lopressor*] 12.5 mg PO BID 6AM 6PM #60 tab 10/29/21 Codeine/APAP [Tylenol #3*] 1 tab PO DAILY 11/30/21 Lidocaine 1 each TP DAILY PRN 11/30/21 Nitroglycerin 0.4 mg SL DAILY PRN 11/30/21 Potassium Chloride [Klor-Con 10] 10 meq PO DAILY 11/30/21 Quetiapine Fumarate [Seroquel] 25 mg PO BEDTIME PRN PRN 11/30/21 Trazodone [Desyrel*] 50 mg PO BEDTIME PRN 11/30/21 Vitamin B Complex [B Complex] 1 each PO DAILY 11/30/21 Polyethylene Glycol 3350 [Miralax] 17 gm PO DAILY #30 powd.pack 12/02/21 Sennosides [Senna] 17.2 mg PO BID #120 tablet 12/02/21 - Past Medical/Surgical History Diabetic: Yes -: CHFunknown EF -: HTN -: DM IDDM -: Heart Stents -: Solitary kidney -: Chronic renal failure -: CAD -: stents Psychosocial/ Personal History: Patient is , lives at home alone - Family History Father -: Heart disease Notes: [place] - Social History Smoking Status: Never smoker Alcohol use: No CD- Drugs: No Caffeine use: Yes Place of Residence: Home Review of Systems 10-point ROS is otherwise unremarkable Cardiovascular: Chest Pain Musculoskeletal: Neck Pain, Other (Radiating to back, left arm) Physical Examination - Physical Exam General: Alert, In no apparent distress, Oriented x3 HEENT: Atraumatic, PERRLA, Mucous membr. moist/pink Neck: Supple Respiratory: Clear to auscultation bilaterally, Normal air movement Cardiovascular: No edema, Regular rate/rhythm, Normal S1 S2 Capillary refill: <2 Seconds Gastrointestinal: Normal bowel sounds, Soft and benign, No tenderness Musculoskeletal: Tenderness (Point tenderness left trapezius area) Integumentary: No rashes Neurological: Normal speech, Normal strength at 5/5 x4 extr, Normal tone, Normal affect - Studies Laboratory Data (last 24 hrs) 12/03/21 18:36: PT 13.2 H, INR 1.15 12/03/21 18:36: WBC 6.60, Hgb 12.0 L, Hct 34.6 L, Plt Count 203 12/03/21 18:36: Sodium 136, Potassium 4.3, BUN 24 H, Creatinine 1.80 H, Glucose 225 H, Magnesium 2.1 D, Total Bilirubin 1.2 H, AST 11 L, ALT 18, Alkaline Phosphatase 61, Lipase 151 Assessment and Plan - Plan Assessment: Chest pain, recent heart catheterization with stent placement and mildly elevated troponin Musculoskeletal neck pain Diabetes mellitus type 2insulin-dependent Chronic CHFunknown EF Hypertension Hyperlipidemia Plan: Chest pain, recent heart catheterization with stent placement and mildly elevated troponin: Trend troponins, monitor on telemetry, cardiology consulted. Patient had heart catheterization with stent placement/lithotripsy recently. Continue home medications including aspirin, Plavix. Await further recommendations from cardiology. Musculoskeletal neck pain: Patient with point tenderness left trapezius area pain radiating to left arm suspect musculoskeletal pain, patient be provided with medications including morphine, tramadol, Skelaxin and Lidoderm patch. We will also have patient ambulated with physical therapy. Of the patient will improve and be able to be discharged on oral medications tomorrow. Diabetes mellitus type 2insulin-dependent: ACH S Accu-Chek, sliding scale insulin Chronic CHFunknown EF: Continue home medicationLasix. Cardiology consulted. Hypertension: Home medications continued Hyperlipidemia: Home medications continued DVT PPX: Heparin Code status: DNR Discharge Plan: Home Plan to discharge in: 24 Hours - Advance Directives Does patient have a Living Will: Yes Does patient have a Durable POA for Healthcare: No - Code Status/Comfort Care Code Status Assessed: Yes (DNR) Critical Care: No Time Spent Managing Pts Care (In Minutes): 55
[2021-12-03] MEDS ORDERED: METAXALONE 800 MG TAB PO PRN (22:28)
[2021-12-03] MEDS ORDERED: TRAMADOL HCL 50 MG TAB PO PRN (22:28)
[2021-12-03] MEDS ORDERED: ATORVASTATIN 40 MG TAB PO SCH (22:28)
[2021-12-03] MEDS: INSULIN -REGULAR HUMAN 50 UNIT/0.5 ML ML SQ SCH (22:28)
[2021-12-03] MEDS ORDERED: DONEPEZIL HCL 5 MG TAB PO SCH (22:28)
[2021-12-03 22:38] VITALS: BMI 27.3
[2021-12-03] MEDS: HEPARIN 5000 UNIT/ML 1 ML VIAL SQ SCH (23:47)
[2021-12-04] MEDS ORDERED: ONDANSETRON 4 MG/2 ML VIAL IV PRN (00:30)
[2021-12-04] MEDS: MORPHINE 2 MG/ML SYR IV PRN ×3 (00:38→12:53)
[2021-12-04 05:51] LABS: Absolute Lymphocytes (CBC) 1.4 K/uL (0.7-4.9); Hematocrit 31.3 % (39.6-49.0); Lymphocytes % 27.6 % (15.3-44.8); MPV 7.6 fL (7.6-11.3); RBC Red Blood Cell Count 3.34 M/uL (4.33-5.43)
--- NOTE | 2021-12-04 06:00 | P.PN ---
Subjective Date of Service: 12/04/21 Primary Care Provider: Dr. Costello Chief Complaint: Chest pain, neck pain Subjective: Improving Physical Examination - Vital Signs Temperature: 98.5 F Blood Pressure: 101/62 Pulse: 103 Respirations: 18 Pulse Ox (%): 98 - Studies Laboratory Data (last 24 hrs) 12/03/21 18:36: PT 13.2 H, INR 1.15 12/03/21 18:36: WBC 6.60, Hgb 12.0 L, Hct 34.6 L, Plt Count 203 12/03/21 18:36: Sodium 136, Potassium 4.3, BUN 24 H, Creatinine 1.80 H, Glucose 225 H, Magnesium 2.1 D, Total Bilirubin 1.2 H, AST 11 L, ALT 18, Alkaline Phosphatase 61, Lipase 151 Assessment & Plan Discharge Plan: Home Plan to discharge in: 24 Hours Physician Review Additional Text: COVID: negative CT neck: COMPARISON: CT abdomen December 01 2021 FINDINGS: An intracranial bleed is not seen. Mild to moderate low-density areas within periventricular, deep and subcortical white matter probably ischemic changes secondary to small vessel disease. The ventricles are normal in caliber. An extra-axial fluid collection is not noted. . Fluid within the sinuses/mastoids is not seen. A cervical fracture is not seen. No dislocation is noted. Moderate spondylosis involves the cervical spine. The evaluation of mediastinum, camille, vessels, solid organs and bowel are limited secondary to the lack of contrast administration. A mediastinal hematoma is not noted. A pleural effusion is not seen. A lung contusion is not present. The liver,spleen, pancreas, adrenals,kidneys and bladder do not demonstrate a traumatic injury. Postsurgical changes involve spine and left pelvis. Neurostimulator device in place. Penile implant present. A right nephrectomy IMPRESSION: 1. No acute intracranial abnormality is seen. 2. A cervical fracture is not visualized. If the patient continues have symptoms to suggest intracranial/spinal cord pathology MRI be recommended 3. No traumatic abnormality involving the chest/abdomen/pelvis. CXR: COMPARISON: 2019 FINDINGS: The lungs appear clear of acute infiltrate. The heart is mildly enlarged IMPRESSION: No acute abnormalities displayed Shoulder Xray: COMPARISON: No comparisons FINDINGS/IMPRESSION: No acute fracture. Mild to moderate left glenohumeral joint degenerative changes. Moderate left AC joint degenerative changes with small subacromial spur. Physical Exam: General: Alert, In no apparent distress, Oriented x3 HEENT: Atraumatic, PERRLA, Mucous membr. moist/pink Neck: Supple Respiratory: Clear to auscultation bilaterally, Normal air movement Cardiovascular: No edema, Regular rate/rhythm, Normal S1 S2 Capillary refill: <2 Seconds Gastrointestinal: Normal bowel sounds, Soft and benign, No tenderness Musculoskeletal: Tenderness (Point tenderness left trapezius area) Integumentary: No rashes Neurological: Normal speech, Normal strength at 5/5 x4 extr, Normal tone, Normal affect Impression: Chest pain, recent heart catheterization with stent placement and mildly elevated troponin Musculoskeletal neck pain with x-ray showing mild to moderate left glenohumeral joint degenerative changes and moderate left AC joint degenerative changes Diabetes mellitus type 2insulin-dependent Chronic CHFunknown EF Hypertension Hyperlipidemia Chronic renal disease, Stage 3 with history of right nephrectomy Plan: Chest pain, recent heart catheterization with stent placement and mildly elevated troponin: Spoke with cardiology. No intervention required. Chest pain likely related to musculoskeletal pain. Patient will need orthopedic follow-up. May follow-up with cardiology as directed. Musculoskeletal neck pain with x-ray showing mild to moderate left glenohumeral joint degenerative changes and moderate left AC joint degenerative changes: We will provide medication for pain at discharge including Lidoderm patch. Recommend orthopedic evaluation as an outpatient. . Diabetes mellitus type 2insulin-dependent: ACH S Accu-Chek, sliding scale insulin Chronic CHFunknown EF: Continue home medicationLasix. Cardiology consulted. Hypertension: Home medications continued Hyperlipidemia: Home medications continued Chronic Renal disease stage 3 with history of right nephrectomy: Stable. DVT PPX: Heparin Code status: DNR Discharge Plan: Home at discharge Time Spent Managing Pts Care (In Minutes): 55
[2021-12-04 06:30] LABS: Protein, Total 6.8 g/dL (6.4-8.2); Thyroid Stimulating Hormone 3.16 uIU/mL (0.360-3.740)
[2021-12-04] MEDS: INSULIN -REGULAR HUMAN 50 UNIT/0.5 ML ML SQ SCH ×3 (08:30→16:30)
[2021-12-04] MEDS ORDERED: LIDOCAINE 4% PATCH TOP SCH (09:00)
[2021-12-04] MEDS ORDERED: CLOPIDOGREL 75 MG TABLET PO SCH (09:00)
[2021-12-04] MEDS ORDERED: FUROSEMIDE 20 MG TABLET PO SCH (09:00)
[2021-12-04] MEDS ORDERED: ISOSORBIDE MONO SR 60 MG TAB PO SCH (09:00)
[2021-12-04] MEDS: HEPARIN 5000 UNIT/ML 1 ML VIAL SQ SCH (09:01)
--- NOTE | 2021-12-04 09:01 | RAD REPORT ---
EXAM DESCRIPTION: RAD - Shoulder Left 2 View - 12/04/2021 8:47 am CLINICAL HISTORY: pain COMPARISON: No comparisons FINDINGS/IMPRESSION: No acute fracture. Mild to moderate left glenohumeral joint degenerative change s. Moderate left AC joint degenerative changes with small subacromial spur.
--- NOTE | 2021-12-04 11:46 | P.DS ---
Admission Date: 12/03/21 Discharge Date: 12/04/21 Primary Care Provider: Dr. Costello Disposition: ROUTINE DISCHARGE Discharge Condition: GOOD Reason for Admission: Chest pain, neck pain Consultations: Cardiology-Dr. Davidson Procedures: COVID: negative CT neck: COMPARISON: CT abdomen December 01 2021 FINDINGS: An intracranial bleed is not seen. Mild to moderate low-density areas within periventricular, deep and subcortical white matter probably ischemic changes secondary to small vessel disease. The ventricles are normal in caliber. An extra-axial fluid collection is not noted. . Fluid within the sinuses/mastoids is not seen. A cervical fracture is not seen. No dislocation is noted. Moderate spondylosis involves the cervical spine. The evaluation of mediastinum, camille, vessels, solid organs and bowel are limited secondary to the lack of contrast administration. A mediastinal hematoma is not noted. A pleural effusion is not seen. A lung contusion is not present. The liver,spleen, pancreas, adrenals,kidneys and bladder do not demonstrate a traumatic injury. Postsurgical changes involve spine and left pelvis. Neurostimulator device in place. Penile implant present. A right nephrectomy IMPRESSION: 1. No acute intracranial abnormality is seen. 2. A cervical fracture is not visualized. If the patient continues have symptoms to suggest intracranial/spinal cord pathology MRI be recommended 3. No traumatic abnormality involving the chest/abdomen/pelvis. CXR: COMPARISON: 2019 FINDINGS: The lungs appear clear of acute infiltrate. The heart is mildly enlarged IMPRESSION: No acute abnormalities displayed Shoulder Xray: COMPARISON: No comparisons FINDINGS/IMPRESSION: No acute fracture. Mild to moderate left glenohumeral joint degenerative changes. Moderate left AC joint degenerative changes with small subacromial spur. Heart Cath 12/02/2021: Date of Procedure: 12/02/2021 Surgeon: SIN BEAR Procedure Performed: Selective coronary angiogram. Indication: Chest pain, ongoing angina, and known coronary artery disease. Access: Right radial artery 6-Turkmen closed with TR band, very difficult radial access. Complications: None. Bleeding: Less than 10 mL. Anesthesia: Total sedation time was 45 minutes. Findings: 1. Left main is normal. 2. LAD has a very long stent extending from the ostium to the mid portion after diagonal 2 branch with focal area in the midportion appears to be under- expanded due to heavy calcium around it. There was 70% in-stent restenosis. Diagonal 2 branch has proximal 90% stenosis. 3. Left circumflex is patent with diffuse luminal irregularities. 4. RCA proximal stent has 80% in-stent restenosis and then diffuse 10% to 20% in-stent restenosis. Conclusion: 1. Severe mid LAD in-stent restenosis with heavy calcium load. 2. Severe proximal RCA in-stent stenosis with heavy calcium load. 3. Difficult radial access. Procedure: Shockwave lithotripsy and balloon angioplasty of LAD and RCA using groin access. Medical Problem List: Chest pain, recent heart catheterization showing severe mid LAD in-stent restenosis with heavy calcium load, severe proximal RCA in-stent stenosis with heavy calcium load status post shockwave lithotripsy and balloon angioplasty of the LAD and RCA Musculoskeletal neck pain with x-ray showing mild to moderate left glenohumeral joint degenerative changes and moderate left AC joint degenerative changes Diabetes mellitus type 2insulin-dependent Chronic diastolic CHF Hypertension Hyperlipidemia Chronic renal disease, Stage 3 with history of right nephrectomy Dementia Brief History of Present Illness: 81-year-old male with history of CAD, CHF, diabetes mellitus type 2, hypertension, hyperlipidemia presents emergency department for left-sided neck pain and chest pain. Patient recently had heart catheterization with angioplasty of the LAD and RCA. Heart catheterization reviewed. Patient reported increasing left neck and shoulder pain. Patient was evaluated in the emergency room. Due to his past history patient was admitted for further evaluation. Hospital Course: Patient presented with chest pain and neck shoulder pain. Patient had a recent heart catheterization December 02. Patient found to have severe LAD in-stent restenosis with heavy calcium load and severe proximal RCA in-stent stenosis with heavy calcium load. Patient had shockwave lithotripsy and balloon angioplasty of the LAD and RCA at that time. Patient was admitted for further evaluation. Patient was seen by cardiology. No intervention was required by ca rdiology. Cardiology felt this was all musculoskeletal related. At discharge patient will continue with his current medications including aspirin 81 mg daily, Plavix 25 mg daily, Lipitor 40 mg daily, Lasix 20 mg daily, potassium supplementation 10 mEq daily, Imdur ER 120 mg daily, lisinopril 5 mg daily, and metoprolol 12.5 mg 1 pill twice daily. Recommend follow-up with cardiology in 1 to 2 weeks to follow-up hospitalization. Recommend follow-up with PCP in 1 week to follow-up his hospitalization. As mentioned above pain likely related to musculoskeletal etiology. X-ray of the shoulder showed mild to moderate left glenohumeral joint degenerative changes and moderate left AC joint degenerative changes. At discharge we will provide medication Tylenol #3 1 pill twice daily as needed for pain. Patient will also be provided lidocaine patch to apply to area to help with pain. Recommend follow-up with orthopedics within 1 to 2 weeks to further address. This can be done with the help of his PCP. Patient with underlying hypertension. Blood pressure stable. At discharge patient will continue with lisinopril 5 mg daily and metoprolol 12.5 mg 1 pill twice daily. Recommend to maintain blood pressure less than 130/80. Further distally can be done by his PCP. Patient with hyperlipidemia. I discharge patient will continue with Lipitor 40 mg daily. Patient with chronic diastolic CHF. Overall stable. At discharge patient will continue with 1500 cc/day fluid restriction and low-salt diet. Recommend to continue Lasix 20 mg daily along with potassium supplementation 10 mEq daily. Recommend to recheck labBMP in 1 week to monitor his progress. Patient with diabetes mellitus type 2. Patient insulin-dependent. At discharge patient will continue with his current insulin regimen of Lantus 10 units daily and Januvia 50 mg daily. Recommend to maintain blood sugar less than 140 fasting and less than 200 after meals. Recommend to recheck hemoglobin A1c every 3 months to monitor his progress. Recommend follow-up with PCP to further monitor and address his medication. Patient with history of chronic renal disease stage III with history of right nephrectomy. Overall stable. Recommend no further use of nonsteroidal anti- inflammatories. Future medications may need to be renally dosed. Recommend follow-up with nephrology as an outpatient to further monitor and address. Patient with dementia. At discharge patient will continue with Aricept 5 mg daily. Patient also takes trazodone 50 mg at bedtime as needed for insomnia and agitation. Vital Signs/Physical Exam: Temp Pulse Resp BP Pulse Ox 98.5 F 103 H 18 101/62 98 12/04/21 11:45 12/04/21 11:45 12/04/21 11:45 12/04/21 11:45 12/04/21 11:45 General: Alert, In no apparent distress, Oriented x3, Cooperative HEENT: Atraumatic Neck: Supple Respiratory: Clear to auscultation bilaterally, Normal air movement Cardiovascular: Normal pulses, Regular rate/rhythm Gastrointestinal: Normal bowel sounds, No tenderness, No masses, No rebound, No guarding Musculoskeletal: Other (Patient has pain to the left shoulder. Patient able to flex and AB duct upper extremity) Neurological: Normal speech, Normal strength at 5/5 x4 extr, Normal tone, Normal affect Laboratory Data at Discharge: WBC 5.20 K/uL (4.3-10.9) D 12/04/21 05:22 Hgb 10.7 g/dL (13.6-17.9) L 12/04/21 05:22 Hct 31.3 % (39.6-49.0) L 12/04/21 05:22 Plt Count 171 K/uL (152-406) 12/04/21 05:22 PT 13.2 SECONDS (9.5-12.5) H 12/03/21 18:36 INR 1.15 12/03/21 18:36 Sodium 136 mmol/L (136-145) 12/04/21 05:22 Potassium 4.0 mmol/L (3.5-5.1) 12/04/21 05:22 BUN 25 mg/dL (7-18) H 12/04/21 05:22 Creatinine 1.69 mg/dL (0.55-1.3) H 12/04/21 05:22 Glucose 211 mg/dL (74-106) H 12/04/21 05:22 Magnesium 2.1 mg/dL (1.8-2.4) D 12/03/21 18:36 Total Bilirubin 1.0 mg/dL (0.2-1.0) 12/04/21 05:22 AST 12 U/L (15-37) L 12/04/21 05:22 ALT 17 U/L (12-78) 12/04/21 05:22 Alkaline Phosphatase 56 U/L (45-117) 12/04/21 05:22 Lipase 151 U/L (73-393) 12/03/21 18:36 Home Medications: Atorvastatin Calcium 1 tab PO BEDTIME 03/10/20 Insulin Glargine Human [Lantus*] 10 unit SQ BEDTIME 03/10/20 Donepezil HCl [Aricept] 5 mg PO BEDTIME 03/17/20 Furosemide [Lasix*] 20 mg PO DAILY 03/17/20 Isosorbide Mononitrate [Isosorbide Mononitrate ER] 120 tab PO DAILY 09/24/20 Lisinopril [Zestril] 5 mg PO DAILY 09/24/20 Sitagliptin Phosphate [Januvia*] 50 mg PO DAILY 09/24/20 Aspirin 1 tab PO DAILY #30 tab.chew 10/29/21 Clopidogrel Bisulfate [Plavix*] 75 mg PO DAILY #30 tablet 10/29/21 Metoprolol Tartrate [Lopressor*] 12.5 mg PO BID 6AM 6PM #60 tab 10/29/21 Nitroglycerin 0.4 mg SL DAILY PRN 11/30/21 Potassium Chloride [Klor-Con 10] 10 meq PO DAILY 11/30/21 Trazodone [Desyrel*] 50 mg PO BEDTIME PRN 11/30/21 Vitamin B Complex [B Complex] 1 each PO DAILY 11/30/21 Codeine/APAP [Tylenol #3*] 1 tab PO BID PRN #10 tab 12/04/21 Lidocaine 4% Patch [Lidoderm 5% Patch*] 1 patch TD DAILY #30 patch 12/04/21 New Medications: Lidocaine 4% Patch [Lidoderm 5% Patch*] 1 patch TD DAILY #30 patch Codeine/APAP [Tylenol #3*] 1 tab PO BID PRN #10 tab PRN Reason: Pain Scale 2-4 (Mild) Physician Discharge Instructions: Patient presented with chest pain and neck shoulder pain. Patient had a recent heart catheterization December 02. Patient found to have severe LAD in-stent restenosis with heavy calcium load and severe proximal RCA in-stent stenosis with heavy calcium load. Patient had shockwave lithotripsy and balloon angioplasty of the LAD and RCA at that time. Patient was admitted for further evaluation. Patient was seen by cardiology. No intervention was required by cardiology. Cardiology felt this was all musculoskeletal related. At discharge patient will continue with his current medications including aspirin 81 mg daily, Plavix 25 mg daily, Lipitor 40 mg daily, Lasix 20 mg daily, potassium supplementation 10 mEq daily, Imdur ER 120 mg daily, lisinopril 5 mg daily, and metoprolol 12.5 mg 1 pill twice daily. Recommend follow-up with cardiology in 1 to 2 weeks to follow-up hospitalization. Recommend follow-up with PCP in 1 week to follow-up his hospitalization. As mentioned above pain likely related to musculoskeletal etiology. X-ray of the shoulder showed mild to moderate left glenohumeral joint degenerative changes and moderate left AC joint degenerative changes. At discharge we will provide medication Tylenol #3 1 pill twice daily as needed for pain. Patient will also be provided lidocaine patch to apply to area to help with pain. Recommend follow-up with orthopedics within 1 to 2 weeks to further address. This can be done with the help of his PCP. Patient with underlying hypertension. Blood pressure stable. At discharge patient will continue with lisinopril 5 mg daily and metoprolol 12.5 mg 1 pill twice daily. Recommend to maintain blood pressure less than 130/80. Further distally can be done by his PCP. Patient with hyperlipidemia. I discharge patient will continue with Lipitor 40 mg daily. Patient with chronic diastolic CHF. Overall stable. At discharge patient will continue with 1500 cc/day fluid restriction and low-salt diet. Recommend to continue Lasix 20 mg daily along with potassium supplementation 10 mEq daily. Recommend to recheck labBMP in 1 week to monitor his progress. Patient with diabetes mellitus type 2. Patient insulin-dependent. At discharge patient will continue with his current insulin regimen of Lantus 10 units daily and Januvia 50 mg daily. Recommend to maintain blood sugar less than 140 fasting and less than 200 after meals. Recommend to recheck hemoglobin A1c every 3 months to monitor his progress. Recommend follow-up with PCP to further monitor and address his medication. Patient with history of chronic renal disease stage III with history of right nephrectomy. Overall stable. Recommend no further use of nonsteroidal anti-inflammatories. Future medications may need to be renally dosed. Recommend follow-up with nephrology as an outpatient to further monitor and address. Patient with dementia. At discharge patient will continue with Aricept 5 mg daily. Patient also takes trazodone 50 mg at bedtime as needed for insomnia and agitation. Diet: ADA Activity: Fall precautions Followup: OOT,OOT [Primary Care Provider] - Time spent managing pt's care (in minutes): 55
[2021-12-04 12:14] VITALS: O2SAT 95
[2021-12-04 19:33] VITALS: BP 114/72; TEMP 97.6
[2021-12-04] MEDS ORDERED: TRAZODONE 50 MG TABLET PO SCH (23:25)
--- NOTE | 2021-12-05 03:55 | EKG ---
Test Date: 2021-12-03 Test Time: 18:34:04 Database Administration Associate: AURELIANO MEASUREMENT RESULTS: Intervals: Rate: 106 PA: 166 QRSD: 100 QT: 352 QTc: 467 Perry: P: 54 PA: 166 QRS: -59 T: 108 INTERPRETIVE STATEMENTS: Sinus tachycardia Left axis deviation Pulmonary disease pattern Minimal voltage criteria for LVH, may be normal variant T wave abnormality, consider lateral ischemia Abnormal ECG Compared to ECG 12/01/2021 20:16:19 Left ventricular hypertrophy now present Sinus bradycardia no longer present Ventricular premature complex(es) no longer present Myocardial infarct finding no longer present T-wave abnormality still present Possible ischemia still present Electronically Signed On 12-05-21 03:54:17 ANALOG IC DESIGN ARCHITECT by Gibson Davidson
== END 2021-12-04 18:00 | disposition home or self-care (01) ==
LOC: ER 17:45 → ERHOLD 20:26 → 2ND 22:12
PROVIDERS: ADMIT Family Medicine; ATTEND Family Medicine
DX: R07.9 Chest pain, unspecified (principal); M54.2 Cervicalgia; M25.512 Pain in left shoulder; I25.10 Atherosclerotic heart disease of native coronary artery without angina pectoris; I13.0 Hypertensive heart and chronic kidney disease with heart failure and stage 1 through stage 4 chronic kidney disease, or unspecified chronic kidney disease; I50.32 Chronic diastolic (congestive) heart failure; N18.30 Chronic kidney disease, stage 3 unspecified; E11.22 Type 2 diabetes mellitus with diabetic chronic kidney disease; R77.8 Other specified abnormalities of plasma proteins; I25.2 Old myocardial infarction; F03.90 Unspecified dementia, unspecified severity, without behavioral disturbance, psychotic disturbance, mood disturbance, and anxiety; E78.5 Hyperlipidemia, unspecified; Z66 Do not resuscitate; Z95.5 Presence of coronary angioplasty implant and graft; Z98.61 Coronary angioplasty status; Z87.891 Personal history of nicotine dependence; Z79.4 Long term (current) use of insulin; Z79.02 Long term (current) use of antithrombotics/antiplatelets; Z79.82 Long term (current) use of aspirin; Z79.899 Other long term (current) drug therapy; Z90.5 Acquired absence of kidney; Z20.822 Contact with and (suspected) exposure to COVID-19; Z82.49 Family history of ischemic heart disease and other diseases of the circulatory system
CPT/HCPCS: 93005; 85025 ×2; 80048; 36415; 83735; 85610; 82947 ×4; 80076; 84443; 84484 ×2; 84439; 83690; 80053; 83880; 70450; 71250; 72125; 71045; 73030; 99284; U0003; J1644 ×2; J2270 ×4; J2405; G0378

== ENCOUNTER 2021-12-18 16:15 | Observation (INO) | payer OTHER ==
--- OUTSIDE RECORDS SUMMARY | 2021-12-18 16:27 | XMS REPORT | Continuity of Care Document ---
:1940 Author Organization [facility] t Address [address] [place] [address] Care Team Providers Name Role Phone Andres Briscoe DO Primary Care Physician Denny Attending Clinician Unavailable Lester Attending Clinician Unavailable Doctor Unassigned, Name Attending [...] Attending Clinician Sharon HARRY Attending Clinician Unavailable Clair Attending Clinician Unavailable Silvina STONER, M Attending Clinician Julio Cesar WOOTEN Attending Clinician JULIO CESAR Attending Clinician Unavailable Ricardo STONER Attending Clinician Unavailable Simi Urrutia MD Attending Clinician Steven WOOTEN Attending Clinician STEVEN Attending Clinician Unavailable CHAVA Attending Clinician Unavailable Chava WOOTEN Attending Clinician Wes STONER Attending Clinician Physician, Primary or Family Admitting Clinician Unavailbrian SHAH Admitting Clinician Unavailable Alyssa WOOTEN Admitting Clinician Justina Flores MD Admitting Clinician Justina FLORES Admitting Clinician Unavailable Sharon HARRY Admitting Clinician Unavailable Clair Admitting Clinician Unavailable Julio Cesar WOOTEN Admitting Clinician JULIO CESAR Admitting Clinician Unavailable Steven WOOTEN Admitting Clinician STEVEN Admitting Clinician Unavailable Payers Payer Name Policy Type Policy Number Effective Date Expiration Date [facility] [id number] 2019 DUAL COMPLETE HMO 00:00:00 [place]ICAID OF [place] [id number] 2018 00:00:00 Problems Condition Condition Condition Status Onset Resolution Last Treating Co mments Source Name Details Category Date Date Treatment Clinician Date Unstable Unstable Disease Active Unive rs angina angina 5-07 ity of 00:00: [place] 00 Medical Branch ALBA (acute ALBA (acute Disease Active 2020- U nivers kidney kidney 4-21 ity of injury) injury) 00:00: [place] 00 Medical Branch Chest pain Chest pain Disease Active 2020- U nivers 4-21 ity of 00:00: [place] Medical Branch Chest pain Chest pain Disease Active 2020- U 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 4-15 it y of 00:00: [place] Medical Branch 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 00:00: [place] and and 00 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 2018-11 U nivers lobe lobe 1-06 ity of pneumonia pneumonia 00:00: [facility] s 00 Medical Branch PNA PNA Disease Active 2018-11 Univers (pneumonia (pneumonia 0-25 it y of ) ) 00:00: [place] 00 Medical Branch Acute on Acute on Disease Active 2018-11 Unive rs chronic chronic 0-25 ity of combined combined 00:00: [place] systolic systolic 00 Medica l and and Branch 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 Dyspnea Dyspnea Disease Active 2018-11 Univers 0-23 ity of 00:00: [place] 00 Medical Branch CHF CHF Disease Active Univers exacerbati exacerbati 2-17 it y of on on 00:00: [place] 00 Medical Branch Essential Essential Disease Active Uni vers hypertensi hypertensi 2-17 it y of on on 00:00: [place] 00 Medical Branch 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 00:00: [place] without without 00 Medical complicati complicati Br anch on, on, without without long-term long-term current current use of use of insulin insulin CHF CHF Disease Active Univers exacerbati exacerbati 2-17 it y of on on 00:00: [place] 00 Medical Branch Acute on Acute on Disease Active Unive rs chronic chronic 1-28 ity of systolic systolic 00:00: [place] CHF CHF 00 Medical (congestiv (congestiv Br anch e heart e heart failure) failure) Elevated Elevated Disease Active Unive rs troponin I troponin I 1-27 it y of level level 00:00: [place] 00 Medical Branch DE LA CRUZ DE LA CRUZ Disease Active Univers (dyspnea (dyspnea 1-27 ity of on on 00:00: [place] exertion) exertion) 00 Medi birdie Branch Coronary Coronary Disease Active Unive rs artery artery 1-27 ity of disease disease 00:00: [place] involving involving 00 Medi birdie [place] Branch 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 NO KNOWN Drug Active Univers ALLERGIE Class ity of S [facility] Social History Social Habit Start Date Stop Date Quantity Comments Source Exposure to Yes University of SARS-CoV-2 (event) [facility] History of tobacco User of [facility] sity of use smokeless [facility] tobacco [place] Alcohol intake 2021-10-31 2021-10-31 Current University of 00:00:00 00:00:00 non-drinker of [facility] alcohol Branch (finding) Cigarettes smoked 2018-12-11 2018-12-11 Univers ity of current (pack per 00:00:00 00:00:00 ) - Reported Branch Cigarette 2018-12-11 2018-12-11 University of pack-years 00:00:00 00:00:00 [facility] Tobacco use and 2018-12-11 2018-12-11 Former user Universi ty of exposure 00:00:00 00:00:00 [facility] Sex Assigned At [birth year] Universit y of 00:00:00 00:00:00 [facility] Smoking Status Start Date Stop Date Source Former smoker 2018-12-11 00:00:00 2018-12-11 [facility] Medications Ordered Filled Start Stop Current Ordering Indication Dosage Frequency Signature Comments Components Source Medication Medication Date Date Medication? Clinician (SIG) Name Name aspirin 81 2020-11- Yes [id number] 81mg Take 1 Univers mg chewable 2-04 12- tablet by it y of tablet 00:00: 05:59 mouth [place] 00 :00 daily for Medical 30 days. Branch clopidogreL 2020-11- Yes [id number] 75mg Take 1 Univers 75 mg 2-19 - tablet by ity of tablet 00:00: 05:59 mouth [place] 00 :00 daily for Medical 30 days. Branch furosemide 2020-11- Yes [id number] 20mg Take 1 Univers 20 mg 2-19 - tablet by ity of tablet 00:00: 05:59 mouth [place] 00 :00 daily for Medical 30 days. Branch aspirin 81 2020-11- Yes [id number] 81mg Take 1 Univers mg chewable 2-04 12- tablet by it y of tablet 00:00: 05:59 mouth [place] 00 :00 daily for Medical 30 days. Branch clopidogreL 2020-11- Yes [id number] 75mg Take 1 Univers 75 mg 2-19 - tablet by ity of tablet 00:00: 05:59 mouth [place] 00 :00 daily for Medical 30 days. Branch furosemide 2020-11- Yes [id number] 20mg Take 1 Univers 20 mg 2-19 - tablet by ity of tablet 00:00: 05:59 mouth [place] 00 :00 daily for Medical 30 days. Branch aspirin 81 2020-11- Yes [id number] 81mg Take 1 Univers mg chewable 01-04 tablet by it y of tablet 00:00: 05:59 mouth [place] 00 :00 daily for Medical 30 days. Branch clopidogreL 2020-11- Yes [id number] 75mg Take 1 Univers 75 mg 01-04 tablet by ity of tablet 00:00: 05:59 mouth [place] 00 :00 daily for Medical 30 days. Branch furosemide 2020-11- Yes [id number] 20mg Take 1 Univers 20 mg 01-04 [...] 2-18 by mouth ity of 18:25: at [place] 21 bedtime. Medical Branch atorvastati 2020-11 Yes 40mg Take 40 mg Univers n 40 mg 2-18 by mouth ity of tablet 18:25: at [place] 21 bedtime. Medical Branch trazodone 2020-11 Yes [...] 2-18 by mouth ity of 18:25: at [place] 21 bedtime. Medical Branch atorvastati 2020-11 Yes 40mg Take 40 mg Univers n 40 mg 2-18 by mouth ity of tablet 18:25: at [place] 21 bedtime. Medical Branch metoprolol 2020-11 Yes [...] Until Discontinu ed, Routine QUEtiapine 2020-11 Yes [id number] 25mg Take 1 Univers 25 mg 2-18 tablet by ity of tablet 00:00: mouth at [place] 00 bedtime as Medical needed Branch (agitation /insomnia) . QUEtiapine 2020-11 Yes [id number] 25mg Take 1 Univers 25 mg 2-18 tablet by ity of tablet 00:00: mouth at [place] 00 bedtime as Medical needed Branch (agitation /insomnia) . QUEtiapine 2020-11 Yes [id number] 25mg Take 1 Univers 25 mg 2-18 tablet by ity of tablet 00:00: mouth at [place] 00 bedtime as Medical needed Branch (agitation /insomnia) . isosorbide 2020-11- Yes [id number] 60mg Take 1 Univers mononitrate 2-18 -18 tablet by it y of 60 mg 24 hr 00:00: 05:59 mouth 2 [place] tablet 00 :00 (two) Medical times Branch daily for 30 days. metoprolol 2020-11- Yes [id number] 37.5mg Take 1.5 Univers succinate 2-18 -18 tablets by ity of XL 25 mg 24 00:00: 05:59 mouth 2 [place] hr tablet 00 :00 (two) Medical times Branch daily for 30 days. isosorbide 2020-11- Yes [id number] 60mg Take 1 Univers mononitrate 2-18 -18 tablet by it y of 60 mg 24 hr 00:00: 05:59 mouth 2 [place] tablet 00 :00 (two) Medical times Branch daily for 30 days. metoprolol 2020-11- Yes [id number] 37.5mg Take 1.5 Univers succinate 2-18 -18 tablets by ity of XL 25 mg 24 00:00: 05:59 mouth 2 [place] hr tablet 00 :00 (two) Medical times Branch daily for 30 days. isosorbide 2020-11- Yes [id number] 60mg Take 1 Univers mononitrate 2-18 01-18 tablet by it y of 60 mg 24 hr 00:00: 05:59 mouth 2 [place] tablet 00 :00 (two) Medical times [place] daily for 30 days. metoprolol 2020-11- Yes [id number] 37.5mg Take 1.5 Univers succinate 01-03- tablets by ity of XL 25 mg [...] mg 00 First dose Medical on Thu [place] 11/01/21 at 0830, Until Discontinu ed, Routine metoprolol 2020-11- No 25mg 25 mg, Univ ers succinate 2-11-02 Oral, BID, ity of XL (TOPROL 14:30: 14:17 First dose [place] XL) tablet 00 :36 on [facility] 25 mg 11/01/21 Branch at 0830, Until Discontinu ed, Routine QUEtiapine 2020-11 Yes 25mg 25 mg, Unive rs (SEROQUEL) 2-17 Oral, ity of tablet 25 09:22: QHSPRN, [place] mg 01 Starting Medical on Thu [place] 11/01/21 at 0322, Until Discontinu ed, Routine, agitation/ insomnia donepeziL 2020-11 Yes 5mg 5 mg, Univers (ARICEPT) 2-17 Oral, QHS, ity of tablet 5 mg 03:00: First dose [place] 00 on [facility] 10/31/21 Branch at 2100, Until Discontinu ed, Routine atorvastati 2020-11 Yes 40mg 40 mg, Univ ers n (LIPITOR) 2-17 Oral, QHS, it y of tablet 40 03:00: First dose [place] mg 00 on [facility] 10/31/21 Branch at 2100, Until Discontinu ed, Routine clopidogreL 2020-11 Yes 75mg 75 mg, Univ ers (PLAVIX) -16 Oral, ity of tablet 75 23:30: DAILY, [place] mg 00 First dose Medical on Madhavi Branch 10/31/21 at 1730, Until Discontinu ed, Routine sulfur 2020-11- No [id number] 5mL 5 mL, Unive rs hexafluorid 01-01 Intravenou i ty of e microsphr 17:00: 17:00 s, ONCE, 1 [place] (LUMASON) 00 :00 dose, On Medica l injection 5 [place] Branch mL 10/31/21 at 1100, Routine
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 : MEGGAN CAMARA isosorbide 2020-11- No 120mg 120 mg, Un mel mononitrate 01-01 Oral, ity of (IMDUR) 24 15:00: 14:16 DAILY, [place] hr tablet 00 :38 First dose Medi birdie 120 mg on [facility] Branch 10/31/21 at 0900, Until Discontinu ed, Routine Sliding 2020-11 Yes Subcutaneo [facility] ers Scale - us, AC+HS, ity of Insulin-Reg 13:30: First dose [place] ular + Fsbg 00 on Madhavi Medica l Testing 10/31/21 Branch at 0730, Until Discontinu ed, Routine enoxaparin 2020-11- No 1mg/kg 80 mg Uni vers (LOVENOX) 01-0118 (rounded ity o f injection 09:00: 14:17 from 78 mg [place] 80 mg 00 :35 = 1 mg/kg Medical ?78 kg), Branch Subcutando , Q24H, First dose on Madhavi 10/31/21 at 0300, Until Discontinu ed, Routine aspirin 2020-11- No 325mg 325 mg, Unive rs tablet 325 01-01 Oral, ity of mg 08:45: 08:15 ONCE, 1 [place] 00 :00 dose, On Medical Madhavi Branch 10/31/21 at 0245, Routine glucagon 2020-11 Yes 1mg 1 mg, Univers (GLUCAGEN -16 Intramuscu ity of DIAGNOSTIC 08:16: lar, PRN, [place] KIT) 15 Starting Medical injection 1 on [facility] Branch mg 10/31/21 at 0216, Until Discontinu [...] swallow or has mental status changes. morpHINE 2020-11 No 2mg 2 mg, Slow Un mel injection 2 -16 12-17 IV Push, ity of mg 07:36: 05:31 Q4HPRN, [place] 09 :07 Starting Medical on Madhavi Branch 10/31/21 at 0136, Until Madhavi 10/31/21 at 2331, Routine, Pain (scale 7-10) nitroglycer 2020-11 Yes .4mg 0.4 mg, Uni vers in 2-16 Sublingual ity of (NITROSTAT) 05:32: , Q5MIN [place] as sublingual 22 PRN, Medical tablet 0.4 Starting Branc h mg on Thu10/30/21 at 2332, Until Discontinu ed, Routine, Chest pain ondansetron 2020-11 Yes 4mg 4 mg, Slow Univers (ZOFRAN 2-16 IV Push, ity of (PF)) 05:32: Q6HPRNOcala, [place] injection 4 10 Starting Medi birdie mg on Thu Branch 10/30/21 at 2332, Until Discontinu ed, Routine, Nausea and Vomiting (N/V) acetaminoph 2020-11 Yes 650mg 650 mg, Un mel en 2-16 Oral, ity of (TYLENOL) 05:31: Q6RNOcala, [place] tablet 650 56 Starting Medic al mg on Thu Branch 10/30/21 at 2331, Until Discontinu ed, Routine, Pain (scale 1-3) acetaminoph 2020-11 Yes [id number] 1{tbl} 1 tablet, Univers en-codeine 2-16 Oral, ity of (TYLENOL 05:29: Q6HPRN, [place] #3) 300-30 29 Starting Medic al mg tablet 1 on Thu Branch tablet 10/30/21 at 2329, Until Discontinu ed, Routine, Pain (scale 4-6), Pain (scale 7-10) sodium 2020-11 Yes 5mL 5 mL, Univers chloride 2-16 Intravenou ity o f (NS) 01:21: s, PRN, [place] injection 5 02 Starting Medi birdie mL on Thu Branch 10/30/21 at 1921, Until Discontinu ed, Routine, IV line flushing morpHINE 2020- No 4mg 4 mg, Slow Un mel injection 4 10 06-10 IV Push, ity of mg 23:15: 22:23 ONCE, 1 [place] 00 :00 dose, Madhavi Medical 04/25/21 at Branch 1815, STAT acetaminoph 2020- No 1{tbl} 1 tablet, Univers en-codeine 6-10 06-10 Oral, ity of (TYLENOL 19:00: 17:52 ONCE, 1 [place] #3) 300-30 00 :00 dose, Madhavi Medi birdie mg tablet 1 04/25/21 at anch tablet 1400, ADAMA cyclobenzap 2020- No 10mg 10 mg, Uni vers rine 6-10 06-10 Oral, ONCE ity of (FLEXERIL) 19:00: 17:52 NOW, 1 [place] tablet 10 00 :00 dose, Madhavi Medic al mg 04/25/21 at Branch 1400, ADAMA cyclobenzap Yes [id number] 5mg Take 1 Univers rine 5 mg 6-10 tablet by ity o f tablet 00:00: mouth 3 [place] [id number] (three) Medical times Branch daily. cyclobenzap Yes [id number] 5mg Take 1 Univers rine 5 mg 6-10 tablet by ity o f tablet 00:00: mouth 3 [place] 00 (three) Medical times Branch daily. cyclobenzap 2020-0 Yes [id number] 5mg Take 1 Univers rine 5 mg 6-10 tablet by ity o f tablet 00:00: mouth 3 [place] 00 (three) Medical times Branch daily. acetaminoph 0 Yes [id number] 1{tbl} Take 1 Un mel en-codeine 6-10 tablet by ity of 300-30 mg 00:00: mouth [place] tablet 00 every 6 Medical (six) Branch hours as needed for Pain (scale 4-6). Indication s: acute pain, left sided low back pain cyclobenzap 2020-0 Yes [id number] 5mg Take 1 Univers rine 5 mg [...] sided low back pain cyclobenzap 2020- Yes [id number] 5mg Take 1 Univers rine 5 mg [...] pain, left sided low back pain acetaminoph 2019-0 Yes [id number] 1{tbl} Take [...] 2020- No 1000mg 1,000 mg, Univers en 05-24- [...] Yes 30U 30 Units, Unive rs glargine 5- Subcutaneo ity o f (LANTUS 14:00: us, DAILY, [place] U-100) 00 First dose Medical injection on [facility] Branch 30 Units 03/24/20 at 0900, Until Discontinu ed clopidogreL 2020-0 Yes 75mg 75 mg, Univ ers (PLAVIX) 03-24 Oral, ity of tablet 75 14:00: DAILY, [place] mg 00 First dose Medical on [facility] Branch 03/24/20 at 0900, Until Discontinu ed, Routine insulin 2020-0 Yes 30U 30 Units, Unive rs glargine 5-09 Subcutaneo ity o f (LANTUS 14:00: us, DAILY, [place] U-100) 00 First dose Medical injection on Sat Branch 30 Units 03/24/20 at 0900, Until Discontinu ed clopidogreL 2020-0 Yes 75mg 75 mg, Univ ers (PLAVIX) 5-09 Oral, ity of tablet 75 14:00: DAILY, [place] mg 00 First dose Medical on Sat Branch 03/24/20 at 0900, Until Discontinu ed, Routine MULTIVITAMI 2020-0 2020- No Take by U nivers N ORAL 5-09 05-08 mouth. ity of 03:38: 00:00 [place] 54 :00 Medical Branch MULTIVITAMI 2020-0 Yes Take by Un mel N ORAL 5-09 mouth. ity of 02:01: [place] 35 Medical Branch atorvastati 2020-0 Yes 40mg 40 mg, Univ ers n (LIPITOR) 5-09 Oral, QHS, it y of tablet 40 02:00: First dose [place] mg 00 on Fri Medical 03/23/20 at Branch 2100, Until Discontinu ed, Routine atorvastati 2020-0 Yes 40mg 40 mg, Univ ers n (LIPITOR) 5-09 Oral, QHS, it y of tablet 40 02:00: First dose [place] mg 00 on Fri Medical 03/23/20 at Branch 2100, Until Discontinu ed, Routine aspirin 81 2020-0 Yes [id number] 81mg Take 1 U nivers mg chewable 5-09 tablet by ity of tablet 00:00: mouth [place] 00 daily with Medical breakfast. Branch furosemide 2020-0 Yes [id number] 20mg Take 1 U nivers 20 mg 5-09 tablet by ity of tablet 00:00: mouth [place] 00 daily. Medical Branch aspirin 81 2020-0 Yes [id number] 81mg Take 1 U nivers mg chewable 5-09 tablet by ity of tablet 00:00: mouth [place] 00 daily with Medical breakfast. Branch furosemide 2020-0 Yes [id number] 20mg Take 1 U nivers 20 mg 5-09 tablet by ity of tablet 00:00: mouth [place] 00 daily. Medical Branch aspirin 81 2020-0 Yes [id number] 81mg Take 1 U nivers mg chewable 5-09 tablet by ity of tablet 00:00: mouth [place] 00 daily with Medical breakfast. Branch furosemide 2020-0 Yes [id number] 20mg Take 1 U nivers 20 mg 5-09 tablet by ity of tablet 00:00: mouth [place] 00 daily. [facility] Branch aspirin 81 2020-0 Yes [id number] 81mg Take 1 U nivers mg chewable 5-09 tablet by ity of tablet 00:00: mouth [place] 00 daily with Medical breakfast. Branch furosemide 2020-0 Yes [id number] 20mg Take 1 U nivers 20 mg 5-09 tablet by ity of tablet 00:00: mouth [place] 00 daily. Medical Branch aspirin 81 2020-0 Yes [id number] 81mg Take 1 U nivers mg chewable 5-09 tablet by ity of tablet 00:00: mouth [place] 00 daily with Medical breakfast. Branch furosemide 2020-0 Yes [id number] 20mg Take 1 U nivers 20 mg 5-09 tablet by ity of tablet 00:00: mouth [place] 00 daily. Medical Branch aspirin 81 2020-0 Yes [id number] 81mg Take 1 U nivers mg chewable 5-09 tablet by ity of tablet 00:00: mouth [place] 00 daily with Medical breakfast. Branch furosemide 2020-0 Yes [id number] 20mg Take 1 U nivers 20 mg 5-09 tablet by ity of tablet 00:00: mouth [place] 00 daily. Medical Branch aspirin 81 2020-0 Yes [id number] 81mg Take 1 U nivers mg chewable 5-09 tablet by ity of tablet 00:00: mouth [place] 00 daily with Medical breakfast. Branch furosemide 2020-0 Yes [id number] 20mg Take 1 U nivers 20 mg 5-09 tablet by ity of tablet 00:00: mouth [place] 00 daily. Medical Branch aspirin 81 2020-0 Yes [id number] 81mg Take 1 U nivers mg chewable 5-09 tablet by ity of tablet 00:00: mouth [place] 00 daily with Medical breakfast. Branch furosemide 2020-0 Yes [id number] 20mg Take 1 U nivers 20 mg 5-09 tablet by ity of tablet 00:00: mouth [place] 00 daily. Medical Branch aspirin 81 2020-0 Yes [id number] 81mg Take 1 U nivers mg chewable 5-09 tablet by ity of tablet 00:00: mouth [place] 00 daily with Medical breakfast. Branch furosemide 2020-0 Yes [id number] 20mg Take 1 U nivers 20 mg 5-09 tablet by ity of tablet 00:00: mouth [place] 00 daily. Medical Branch aspirin 81 2020-0 2021- No [id number] 81mg Take 1 Univers mg chewable 5-09 12-18 tablet by it y of tablet 00:00: 00:00 mouth [place] 00 :00 daily with Medical breakfast. Branch furosemide 2019-2020- No [id number] 20mg Take 1 Univers 20 mg 03-24 tablet by ity of tablet 00:00: 00:00 mouth [place] 00 :00 daily. Medical Branch isosorbide 2019-2019- No [id number] 90mg Take 3 Univers mononitrate 03-24-08 tablets by i ty of 30 mg 24 hr 00:00: 00:00 mouth [place] tablet 00 :00 daily. [facility] Branch isosorbide 2019-2019- No [id number] 90mg Take 3 Univers mononitrate 03-24-08 tablets by i ty of 30 mg 24 hr 00:00: 00:00 mouth [place] tablet 00 :00 daily. Medical Branch maalox/lido 2019-0 2019- No 5mL 5 mL, [facility] ers sydni 2 03-23-08 Oral, ity of %viscous 20:45: 20:56 ONCE, 1 [place] 1: 00 :00 dose, Fri Medical suspension 03/23/20 at [facility] (COMPOUNDED 1545, ) Routine maalox/lido 2019-0 2020- No 5mL 5 mL, [facility] 2 03-23- Oral, ity of %viscous 20:45: 20:56 ONCE, 1 [place] 1: 00 :00 dose, Fri Medical suspension 03/23/20 at [facility] (COMPOUNDED 1545, ) Routine acetaminoph 2020-0 Yes 875mg 900 mg Uni vers en 03-23 (rounded ity of (TYLENOL) 20:00: from 875 [place] tablet 900 00 mg), Oral, Med ical mg Q8H, First Branch dose on Thu03/23/20 at 1500, Until Discontinu ed, Routine acetaminoph 2020-0 Yes 875mg 900 mg Uni vers en 5-08 (rounded ity of (TYLENOL) 20:00: from 875 [place] tablet 900 00 mg), Oral, Med ical mg Q8H, First Branch dose on Thu03/23/20 at 1500, Until Discontinu ed, Routine lidocaine 2019- 2020- No 1{patch 1 Patch, Univers (LIDODERM) 03-23- } Topical, ity of 5 % (700 19:46: 08:56 Administer [place] mg/patch) 00 :00 over 12 Medical patch 1 Hours, Branch Patch ONCE, 1 dose, Thu03/23/20 at 1500, Routine lidocaine 2020-0 2020- No 1{patch 1 Patch, Univers (LIDODERM) 03-23- } Topical, ity of 5 % (700 19:46: 08:56 Administer [place] mg/patch) 00 :00 over 12 Medical patch 1 Hours, Branch Patch ONCE, 1 dose, Thu03/23/20 at 1500, Routine perflutren 2020-0 2020- No 2mL 2 mL, IV Un mel lipid 03-23- Push, ity of microsphere 15:30: 14:00 ONCE, 1 [place] 00 :00 dose, Thu Medical (DEFINITY) 03/23/20 at Bran ch injection 2 1030, mL Routine perflutren 2020-0 2020- No 2mL 2 mL, IV Un mel lipid 03-23- Push, ity of microsphere 15:30: 14:00 ONCE, 1 [place] s 00 :00 dose, Thu Medical (DEFINITY) 03/23/20 at Bran ch injection 2 1030, mL Routine isosorbide 2020-0 Yes 90mg 90 mg, Unive rs mononitrate 5-08 Oral, ity of (IMDUR) 24 14:30: DAILY, [place] hr tablet 00 First dose Medi birdie 90 mg on Thu03/23/20 at 0930, Until Discontinu ed, Routine isosorbide 2020-0 Yes 90mg 90 mg, Unive rs mononitrate 5-08 Oral, ity of (IMDUR) 24 14:30: DAILY, [place] hr tablet 00 First dose Medi birdie 90 mg on Thu03/23/20 at 0930, Until Discontinu ed, Routine vitamin [...] 10 mEq 00 First dose Medical on 03/23/20 at 0900, Until Discontinu ed, Routine [...] 1 [place] mg 00 :00 dose, [facility] 03/23/20 at Branch 0330, Routine clopidogreL 2020-0 2020- No 300mg 300 mg, U nivers (PLAVIX) 03-23 Oral, ity of tablet 300 08:30: 07:48 ONCE, 1 [place] mg 00 :00 dose, [facility] 03/23/20 at Branch 0330, Routine morpHINE 2020-0 Yes 2mg 2 mg, Slow Uni vers injection 2 -08 IV Push, ity of mg 07:59: Q4HPRN, [place] [address] Starting [facility] 03/23/20 [place] at 0259, Until Discontinu ed, Routine, Chest pain morpHINE 2020-0 Yes 2mg 2 mg, Slow Uni vers injection 2 -08 IV Push, ity of mg 07:59: Q4HPRN, [address] 03/23/20 [place] at 0259, Until Discontinu ed, Routine, Chest [...] [place] 40 mEq 00 :00 dose, [facility] Medical 03/23/20 at Branch 0245, Routine magnesium [...] , Starting [place] mL vial) 18 Madhavi 20 Medic al for at 2304, Branch Rebolusing [...] No 1{capsu Take 1 Univers onepezil 03-23 05-07 le} capsule by ity of (NAMZARIC) 04:01: [...] No 1{capsu Take 1 Univers onepezil 03-23 05-07 le} capsule by ity of (NAMZARIC) 04:01: [...] Yes 650mg 650 mg, Un mel en 03-23 Oral, ity of (TYLENOL) 02:51: Q6HPRN, [place] tablet 650 29 Starting Medic al mg [facility] 03/22/20 Branch at 2151, Until Discontinu ed, Routine, Pain (scale 1-3) acetaminoph 2020-0 Yes 650mg 650 mg, Un mel en 03-23 Oral, ity of (TYLENOL) 02:51: Q6HPRN, [place] tablet 650 29 Starting Medic al mg [facility] 03/22/20 Branch at 2151, Until Discontinu ed, Routine, Pain (scale 1-3) nitroglycer 2020-0 Yes .4mg 0.4 mg, Uni vers in 03-23 Sublingual ity of (NITROSTAT) 02:38: , Q5MIN [place] sublingual 00 PRN, 3 Medical tablet 0.4 doses, Branch mg Starting [facility] 03/22/20 at 2138, Until Discontinu ed, ADAMA, Chest pain nitroglycer 2020-0 Yes .4mg 0.4 mg, Uni vers in 03-23 Sublingual ity of (NITROSTAT) 02:38: , Q5MIN [place] sublingual 00 PRN, 3 Medical tablet 0.4 doses, Branch mg Starting [facility] 03/22/20 at 2138, Until Discontinu ed, ADAMA, Chest pain aspirin 2020-0 2020- No 324mg 324 mg, Unive rs chewable 03-23 Oral, ity of tablet 324 02:37: 02:51 ONCE, 1 [place] mg 00 :00 dose, [facility] 03/22/20 at Branch 2145, ADAMA aspirin 2020-0 2020- No 324mg 324 mg, Unive rs chewable 03-23- Oral, ity of tablet 324 02:37: 02:51 ONCE, 1 [place] mg 00 :00 dose, [facility] 03/22/20 at Branch 2145, ADAMA isosorbide 2020-0 Yes [id number] 90mg Take 1.5 Univers mononitrate 5-08 tablets by it y of 60 mg 24 hr 00:00: mouth [place] tablet 00 daily. [facility] isosorbide 2020-0 Yes [id number] 90mg Take 1.5 Univers mononitrate 5-08 tablets by it y of 60 mg 24 hr 00:00: mouth [place] tablet 00 daily. [facility] isosorbide 2020-0 Yes [id number] 90mg Take 1.5 Univers mononitrate 5-08 tablets by it y of 60 mg 24 hr 00:00: mouth [place] tablet 00 daily. [facility] isosorbide 2020-0 Yes [id number] 90mg Take 1.5 Univers mononitrate 5-08 tablets by it y of 60 mg 24 hr 00:00: mouth [place] tablet 00 daily. [facility] isosorbide 2020-0 Yes [id number] 90mg Take 1.5 Univers mononitrate 5-08 tablets by it y of 60 mg 24 hr 00:00: mouth [place] tablet 00 daily. [facility] isosorbide 2020-0 Yes [id number] 90mg Take 1.5 Univers mononitrate 5-08 tablets by it y of 60 mg 24 hr 00:00: mouth [place] tablet 00 daily. [facility] isosorbide 2020-0 Yes [id number] 90mg Take 1.5 Univers mononitrate 5-08 tablets by it y of 60 mg 24 hr 00:00: mouth [place] tablet 00 daily. [facility] isosorbide 2020-0 Yes [id number] 90mg Take 1.5 Univers mononitrate 5-08 tablets by it y of 60 mg 24 hr 00:00: mouth [place] tablet 00 daily. [facility] isosorbide 2020-0 Yes [id number] 90mg Take 1.5 Univers mononitrate 5-08 tablets by it y of 60 mg 24 hr 00:00: mouth [place] tablet 00 daily. [facility] isosorbide 2020-0 2020- No [id number] 90mg Take 1.5 Univers mononitrate 5-08 12-18 tablets by i ty of 60 mg 24 hr 00:00: 00:00 [place] tablet 00 :00 daily. [facility] acetaminoph 2019-0 2019- No [id number] 975mg Take 3 Univers en 325 mg 5-08 05-19 tablets by ity of tablet 00:00: 04:59 mouth [place] 00 :00 every 8 Medical (eight) Branch hours for 10 days. acetaminoph 2020-0 2020- No [id number] 975mg Take 3 Univers en 325 mg 5-08 05-19 tablets by ity of tablet 00:00: 04:59 mouth [place] 00 :00 every 8 Medical (eight) Branch hours for 10 days. acetaminoph 2020-0 2020- No [id number] 975mg Take 3 Univers en 325 mg 5-08 05-19 tablets by ity of tablet 00:00: 04:59 mouth [place] 00 :00 every 8 Medical (eight) Branch hours for 10 days. acetaminoph 2020-0 2020- No [id number] 975mg Take 3 Univers en 325 mg 5-08 05-19 tablets by ity of tablet 00:00: 04:59 mouth [place] 00 :00 every 8 Medical (eight) Branch hours for 10 days. acetaminoph 2020-0 2020- No [id number] 975mg Take 3 Univers en 325 mg 5-08 05-19 tablets by ity of tablet 00:00: 04:59 mouth [place] 00 :00 every 8 Medical (eight) Branch hours for 10 days. lidocaine 5 2020- No [id number] 1{patch Apply 1 Univers % (700 5-08 05-09 } Patch to ity of mg/patch) 00:00: 04:59 area(s) [place] patch 00 :00 once now Medical for 1 Branch dose. lidocaine 5 2020- No [id number] 1{patch Apply 1 Univers % (700 5-08 05-09 } Patch to ity of mg/patch) 00:00: 04:59 area(s) [place] patch 00 :00 once now Medical for 1 Branch dose. lidocaine 5 0 2020- No [id number] 1{patch Apply 1 Univers % (700 5-08 05-08 } Patch to ity of mg/patch) 00:00: 00:00 area(s) [place] patch 00 :00 once now Medical for 1 Branch dose. lidocaine 5 0 2020- No [id number] 1{patch Apply 1 Univers % (700 5-08 05-08 } Patch to ity of mg/patch) 00:00: 00:00 area(s) [place] patch 00 :00 once now Medical for 1 Branch dose. glipiZIDE 2020-0 Yes 5mg 5 mg, Univers (GLUCOTROL) 4-23 Oral, ity of tablet 5 mg 14:00: DAILY, [place] 00 First dose Medical on [facility] Branch 03/08/20 at 0900, Until Discontinu ed, Routine spironolact 2019- 2020- No [id number] 12.5mg Take 0.5 Univers one 25 mg 4-23 05-24 tablets by ity of tablet 00:00: 04:59 mouth [place] 00 :00 daily for Medical 30 days. Branch spironolact 2019- 2020- No [id number] 12.5mg Take 0.5 Univers one 25 mg 4-23 05-24 tablets by ity of tablet 00:00: 04:59 mouth [place] 00 :00 daily for Medical 30 days. Branch spironolact 2019- 2020- No [id number] 12.5mg Take 0.5 Univers one 25 mg 4-23 05-24 tablets by ity of tablet 00:00: 04:59 mouth [place] 00 :00 daily for Medical 30 days. Branch spironolact 2019- 2020- No [id number] 12.5mg Take 0.5 Univers one 25 mg 4-23 05-07 tablets by ity of tablet 00:00: 00:00 mouth [place] 00 :00 daily for Medical 30 days. Branch spironolact 2020- 2020- No [id number] 12.5mg Take 0.5 Univers one 25 mg 4-23 05-07 tablets by ity of tablet 00:00: 00:00 mouth [place] 00 :00 daily for Medical 30 days. Branch memantine-d 2019-0 Yes 1{capsu Take 1 [...] N ORAL - mouth. ity of 23:46: [place] 10 Medical Branch thiamine 2020-0 Yes 100mg [...] 2020-0 Yes Take by Univers acid/vit B -22 mouth. ity of complex and 23:46: [facility] (B 10 Medical COMPLEX-VIT Branch RAZA C-FOLIC ACID ORAL) Cholecalcif 2020-0 Yes Take by Un mel ann, - mouth. ity of Vitamin D3, 23:46: [place] 2,000 unit 10 Medical capsule Branch MULTIVITAMI 2020-0 Yes Take by Un mel N ORAL 4-22 mouth. ity of 23:46: [place] [address] Medical Branch thiamine 2020-0 Yes 100mg Take [...] 4-22 mouth. ity of complex and 23:46: [facility] (B 10 Medical COMPLEX-VIT Branch RAZA C-FOLIC [...] 2020- No 12.5mg Take 12.5 Univers tartrate -22 04-22 mg by ity of 12.5 mg 20:15: 00:00 mouth 2 [place] 29 :00 (two) Medical times Branch daily. aspirin 81 2020-0 2020- No 81mg Take 81 mg Univers mg chewable -07 03- by mouth ity of tablet 20:15: 00:00 daily. [place] 29 :00 Medical Branch atorvastati 2020-0 2020- No 40mg Take 40 mg Univers n 40 mg -07 03-22 by mouth ity of tablet 20:15: 00:00 at [place] 29 :00 bedtime. Medical Branch temazepam 2020-0 Yes 15mg 15 mg, Univer s (RESTORIL) 4-22 Oral, ity of capsule 15 01:55: QHSPRN, [place] mg 38 Starting Medical Tue Branch 03/06/20 at 2055, Until Discontinu ed, Routine, Insomnia Insulin 2020-0 Yes [id number] 10U inject 10 Univers Glargine 4-22 Units ity of 100 unit/mL 00:00: under the [place] (3 mL) 00 skin at Medical injection bedtime. Branch temazepam 2020-0 Yes [id number] 15mg Take 1 Un mel 15 mg 4-22 capsule by ity of capsule 00:00: mouth at [place] 00 bedtime as Medical needed for Branch Insomnia. furosemide 2020-0 Yes [id number] 40mg Take 1 Univers 40 mg 4-22 tablet by ity of tablet 00:00: mouth [place] 00 every Medical morning Branch and evening. Magnesium 2020-0 Yes [id number] 400mg Take 400 Univers Oxide 420 4-22 mg by ity of mg Tab 00:00: mouth [place] 00 daily. Medical Branch potassium 2020-0 Yes [id number] 20meq Take 20 Univers chloride 20 4-22 mEq by ity of mEq packet 00:00: mouth [place] 00 daily. Medical Take with Branch lasix in the morning isosorbide 2020-0 Yes [id number] 15mg Take 0.5 Univers mononitrate 4-22 tablets by it y of 30 mg 24 hr 00:00: mouth [place] tablet 00 daily. Medical Hold if Branch systolic blood pressure less than 120 Insulin 2020-0 Yes [id number] 10U inject 10 Univers Glargine 4-22 Units ity of 100 unit/mL 00:00: under the [place] (3 mL) 00 skin at Medical injection bedtime. Branch temazepam 2020-0 Yes [id number] 15mg Take 1 Un mel 15 mg 4-22 capsule by ity of capsule 00:00: mouth at [place] 00 bedtime as Medical needed for Branch Insomnia. furosemide 2020-0 Yes [id number] 40mg Take 1 Univers 40 mg 4-22 tablet by ity of tablet 00:00: mouth [place] 00 every Medical morning Branch and evening. Magnesium 2020-0 Yes [id number] 400mg Take 400 Univers Oxide 420 4-22 mg by ity of mg Tab 00:00: mouth [place] 00 daily. Medical Branch potassium 2020-0 Yes [id number] 20meq Take 20 Univers chloride 20 4-22 mEq by ity of mEq packet 00:00: mouth [place] 00 daily. Medical Take with Branch lasix in the morning isosorbide 2020-0 Yes [id number] 15mg Take 0.5 Univers mononitrate 4-22 tablets by it y of 30 mg 24 hr 00:00: mouth [place] tablet 00 daily. Medical Hold if Branch systolic blood pressure less than 120 Insulin 2020-0 Yes [id number] 10U inject 10 Univers Glargine 4-22 Units ity of 100 unit/mL 00:00: under the [place] (3 mL) 00 skin at Medical injection bedtime. Branch temazepam 2020-0 Yes [id number] 15mg Take 1 Un mel 15 mg 4-22 capsule by ity of capsule 00:00: mouth at [place] 00 bedtime as Medical needed for Branch Insomnia. furosemide 2020-0 Yes [id number] 40mg Take 1 Univers 40 mg 4-22 tablet by ity of tablet 00:00: mouth [place] 00 every Medical morning Branch and evening. Magnesium 2020-0 Yes [id number] 400mg Take 400 Univers Oxide 420 4-22 mg by ity of mg Tab 00:00: mouth [place] 00 daily. Medical Branch potassium 2020-0 Yes [id number] 20meq Take 20 Univers chloride 20 4-22 mEq by ity of mEq packet 00:00: mouth [place] 00 daily. Medical Take with Branch lasix in the morning isosorbide 2020-0 Yes [id number] 15mg Take 0.5 Univers mononitrate 4-22 tablets by it y of 30 mg 24 hr 00:00: mouth [place] tablet 00 daily. Medical Hold if Branch systolic blood pressure less than 120 Insulin 2020-0 Yes [id number] 10U inject 10 Univers Glargine 4-22 Units ity of 100 unit/mL 00:00: under the [place] (3 mL) 00 skin at Medical injection bedtime. Branch Magnesium 2020-0 Yes [id number] 400mg Take 400 Univers Oxide 420 4-22 mg by ity of mg Tab 00:00: mouth [place] 00 daily. Medical Branch vitamin 2020-0 2020- No [id number] 1000ug Take 1 Univers B-12 1,000 4-22 07-22 tablet by ity of mcg tablet 00:00: 04:59 mouth [place] 00 :00 daily for Medical 90 days. Branch vitamin 2020-0 2020- No [id number] 1000ug Take 1 Univers B-12 1,000 4-22 07-22 tablet by ity of mcg tablet 00:00: 04:59 mouth [place] 00 :00 daily for Medical 90 days. Branch vitamin 2020-0 2020- No [id number] 1000ug Take 1 Univers B-12 1,000 4-22 07-22 tablet by ity of mcg tablet 00:00: 04:59 mouth [place] 00 :00 daily for Medical 90 days. Branch vitamin 2020-0 2020- No [id number] 1000ug Take 1 Univers B-12 1,000 4-22 07-22 tablet by ity of mcg tablet 00:00: 04:59 mouth [place] 00 :00 daily for Medical 90 days. Branch glipiZIDE 5 2019-0 2020- No [id number] 2.5mg Take 0.5 Univers mg tablet 4-22 05-23 tablets by ity of 00:00: 04:59 mouth 2 [place] 00 :00 (two) Medical times Branch daily before breakfast and dinner for 30 days. metoprolol 2019- 2020- No [id number] 25mg Take 1 Univers succinate 4-22 05-23 tablet by ity of XL 25 mg 24 00:00: 04:59 mouth 2 [place] hr tablet 00 :00 (two) Medical times Branch daily for 30 days. OLANZapine 2019- 2020- No [id number] 2.5mg Take 1 Univers 2.5 mg 4-22 05-23 tablet by ity of tablet 00:00: 04:59 mouth at [place] 00 :00 bedtime Medical for 30 Branch days. ranolazine 2019- 2020- No [id number] 1000mg Take 2 Univers 500 mg 12 4-22 05-23 tablets by ity of hr tablet 00:00: 04:59 mouth [place] 00 :00 every 12 Medical (twelve) Branch hours for 30 days. aspirin 81 2019- 2020- No [id number] 81mg Take 1 Univers mg chewable 4- 05-23 tablet by it y of tablet 00:00: 04:59 mouth [place] 00 :00 daily with Medical breakfast Branch for 30 days. atorvastati 2019- 2020- No [id number] 40mg Take 1 Univers n 40 mg 4-22 05-23 tablet by ity of tablet 00:00: 04:59 mouth at [place] 00 :00 bedtime Medical for 30 Branch days. glipiZIDE 5 2019- 2020- No [id number] 2.5mg Take 0.5 Univers mg tablet - 05-23 tablets by ity of 00:00: 04:59 mouth 2 [place] 00 :00 (two) Medical times Branch daily before breakfast and dinner for 30 days. metoprolol 2019-0 2020- No [id number] 25mg Take 1 Univers succinate 4-22 05-23 tablet by ity of XL 25 mg 24 00:00: 04:59 mouth 2 [place] hr tablet 00 :00 (two) Medical times Branch daily for 30 days. OLANZapine 2019- 2020- No [id number] 2.5mg Take 1 Univers 2.5 mg 4-22 05-23 tablet by ity of tablet 00:00: 04:59 mouth at [place] 00 :00 bedtime Medical for 30 Branch days. ranolazine 2019-0 2020- No [id number] 1000mg Take 2 Univers 500 mg 12 4-22 05-23 tablets by ity of hr tablet 00:00: 04:59 mouth [place] 00 :00 every 12 Medical (twelve) Branch hours for 30 days. aspirin 81 2019- 2020- No [id number] 81mg Take 1 Univers mg chewable 4-22 05-23 tablet by it y of tablet 00:00: 04:59 mouth [place] 00 :00 daily with Medical breakfast Branch for 30 days. atorvastati 2019-0 2020- No [id number] 40mg Take 1 Univers n 40 mg 4-22 05-23 tablet by ity of tablet 00:00: 04:59 mouth at [place] 00 :00 bedtime Medical for 30 Branch days. glipiZIDE 5 2019- 2020- No [id number] 2.5mg Take 0.5 Univers mg tablet 03-07 05-23 tablets by ity of 00:00: 04:59 mouth 2 [place] 00 :00 (two) Medical times Branch daily before breakfast and dinner for 30 days. metoprolol 2019- 2020- No [id number] 25mg Take 1 Univers succinate 4-22 05-23 tablet by ity of XL 25 mg 24 00:00: 04:59 mouth 2 [place] hr tablet 00 :00 (two) Medical times Branch daily for 30 days. OLANZapine 2019- 2020- No [id number] 2.5mg Take 1 Univers 2.5 mg 4-22 05-23 tablet by ity of tablet 00:00: 04:59 mouth at [place] 00 :00 bedtime Medical for 30 Branch days. ranolazine 2019-0 2020- No [id number] 1000mg Take 2 Univers 500 mg 12 4-22 05-23 tablets by ity of hr tablet 00:00: 04:59 mouth [place] 00 :00 every 12 Medical (twelve) Branch hours for 30 days. aspirin 81 2019-0 2020- No [id number] 81mg Take 1 Univers mg chewable 4-22 05-23 tablet by it y of tablet 00:00: 04:59 mouth [place] 00 :00 daily with Medical breakfast Branch for 30 days. atorvastati 2020-0 2020- No [id number] 40mg Take 1 Univers n 40 mg 4-22 05-23 tablet by ity of tablet 00:00: 04:59 mouth at [place] 00 :00 bedtime Medical for 30 Branch days. glipiZIDE 5 2020- No [id number] 2.5mg Take 0.5 Univers mg tablet 03-07- tablets by ity of 00:00: 04:59 mouth 2 [place] 00 :00 (two) Medical times Branch daily before breakfast and dinner for 30 days. metoprolol 2019- 2020- No [id number] 25mg Take 1 Univers succinate 03-07- tablet by ity of XL 25 mg 24 00:00: 04:59 mouth 2 [place] hr tablet 00 :00 (two) Medical times Branch daily for 30 days. ranolazine 2019- 2020- No [id number] 1000mg Take 2 Univers 500 mg 12 03-07- tablets by ity of hr tablet 00:00: 04:59 mouth [place] 00 :00 every 12 Medical (twelve) Branch hours for 30 days. atorvastati 2019-2019- No [id number] 40mg Take 1 Univers n 40 mg 03-07 tablet by ity of tablet 00:00: 04:59 mouth at [place] 00 :00 bedtime Medical for 30 Branch days. furosemide 2019- 2020- No [id number] 40mg Take 1 Univers 40 mg 03-07-08 tablet by ity of tablet 00:00: 00:00 mouth [place] 00 :00 every Medical morning Branch and evening. aspirin 81 2019- 2020- No [id number] 81mg Take 1 Univers mg chewable 03-07-08 tablet by it y of tablet 00:00: 00:00 mouth [place] 00 :00 daily with Medical breakfast Branch for 30 days. isosorbide 2020- No [id number] 15mg Take 0.5 Univers mononitrate 03-07-08 tablets by i ty of 30 mg 24 hr 00:00: 00:00 mouth [place] tablet 00 :00 daily. Medical Hold if Branch systolic blood pressure less than 120 Insulin 2019- 2020- No [id number] 10U inject 10 Univers Glargine 03-07-08 Units ity of 100 unit/mL 00:00: 00:00 under the [place] (3 mL) 00 :00 skin at Medical injection bedtime. Branch glipiZIDE 5 2019- No [id number] 2.5mg Take 0.5 Univers mg tablet 03-07-08 tablets by ity of 00:00: 00:00 mouth 2 [place] 00 :00 (two) Medical times Branch daily before breakfast and dinner for 30 days. metoprolol 2019- No [id number] 25mg Take 1 Univers succinate 03-07-08 tablet by ity of XL 25 mg 24 00:00: 00:00 mouth 2 [place] hr tablet 00 :00 (two) Medical times Branch daily for 30 days. ranolazine 2019- No [id number] 1000mg Take 2 Univers 500 mg 12 03-07-08 tablets by ity of hr tablet 00:00: 00:00 mouth [place] 00 :00 every 12 Medical (twelve) Branch hours for 30 days. furosemide 2019-2019- No [id number] 40mg Take 1 Univers 40 mg 03-07-08 tablet by ity of tablet 00:00: 00:00 mouth [place] 00 :00 every Medical morning Branch and evening. aspirin 81 2019- No [id number] 81mg Take 1 Univers mg chewable 03-07-08 tablet by it y of tablet 00:00: 00:00 mouth [place] 00 :00 daily with Medical breakfast Branch for 30 days. atorvastati 2019- No [id number] 40mg Take 1 Univers n 40 mg 03-07-08 tablet by ity of tablet 00:00: 00:00 mouth at [place] 00 :00 bedtime Medical for 30 Branch days. Magnesium 2019- No [id number] 400mg Take 400 Univers Oxide 420 03-07-08 mg by ity of mg Tab 00:00: 00:00 mouth [place] 00 :00 daily. Medical Branch vitamin 2019-2019- No [id number] 1000ug Take 1 Univers B-12 1,000 03-07-08 tablet by ity of mcg tablet 00:00: 00:00 mouth [place] 00 :00 daily for Medical 90 days. Branch isosorbide 2019- No [id number] 15mg Take 0.5 Univers mononitrate 03-07-08 tablets by i ty of 30 mg 24 hr 00:00: 00:00 mouth [place] tablet 00 :00 daily. Medical Hold if Branch systolic blood pressure less than 120 OLANZapine 2019- 2020- No [id number] 2.5mg Take 1 Univers 2.5 mg 4-22 05-07 tablet by ity of tablet 00:00: 00:00 mouth at [place] 00 :00 bedtime Medical for 30 Branch days. temazepam 2019- 2020- No [id number] 15mg Take 1 U nivers 15 mg 03-07-07 capsule by ity of capsule 00:00: 00:00 mouth at [place] 00 :00 bedtime as Medical needed for Branch Insomnia. potassium 2019- 2020- No [id number] 20meq Take 20 Univers chloride 20 03-07 05-07 mEq by ity o f mEq packet 00:00: 00:00 mouth [place] 00 :00 daily. Medical Take with Branch lasix in the morning OLANZapine 2019- No [id number] 2.5mg Take 1 Univers 2.5 mg 03-07-07 tablet by ity of tablet 00:00: 00:00 mouth at [place] 00 :00 bedtime Medical for 30 Branch days. temazepam 2019- 2020- No [id number] 15mg Take 1 U nivers 15 mg 03-07-07 capsule by ity of capsule 00:00: 00:00 mouth at [place] 00 :00 bedtime as Medical needed for Branch Insomnia. potassium 2019- No [id number] 20meq Take 20 Univers chloride 20 03-07 05-07 mEq by ity o f mEq packet 00:00: 00:00 mouth [place] 00 :00 daily. Medical Take with Branch lasix in the morning isosorbide 2019- No 60mg 60 mg, Univ ers mononitrate 03-06 04-21 Oral, ity of (IMDUR) 24 14:00: 13:43 DAILY, [place] hr tablet 00 :56 First dose Medi bird[place] 60 mg on Thu [place] 03/06/20 at 0900, Until Discontinu ed, Routine OLANZapine 2019- Yes 2.5mg 2.5 mg, Uni vers (ZyPREXA) 4-21 Oral, QHS, ity of tablet 2.5 02:00: First dose [place] mg 00 on Thu [facility] 03/05/20 at Branch 2100, Until Discontinu ed, Routine insulin 2019-0 Yes 10U 10 Units, Unive rs glargine - Subcutaneo ity o f (LANTUS 02:00: us, Q, [place] U-100) 00 First dose Medical injection on Thu Branch 10 Units 03/05/20 at 2100, Until Discontinu ed, Routine donepezil 2020-0 Yes 5mg 5 mg, Univers (ARICEPT) 4-21 Oral, QHS, ity of tablet 5 mg 02:00: First dose [place] 00 on [facility] 03/05/20 at Branch 2100, Until Discontinu ed, Routine atorvastati 2020-0 Yes 40mg 40 mg, Univ ers n (LIPITOR) 4-21 Oral, QHS, it y of tablet 40 02:00: First dose [place] mg 00 on [facility] 03/05/20 at Branch 2100, Until Discontinu ed, Routine isosorbide 2020-0 2020- No 30mg 30 mg, Univ ers mononitrate 03-05 Oral, ity of (IMDUR) 24 15:30: 15:21 ONCE, 1 [place] hr tablet 00 :00 dose, [facility] Medic al 30 mg 03/05/20 at Branch 1030, Routine spironolact 2020-0 Yes 12.5mg 12.5 mg, Univers one -20 Oral, ity of (ALDACTONE) 14:00: DAILY, [place] tablet 12.5 00 First dose Me dical mg on [facility] Branch 03/05/20 at 0900, Until Discontinu ed, Routine memantine 2020-0 Yes 10mg 10 mg, Univer s (NAMENDA) 4-20 Oral, ity of tablet 10 14:00: DAILY, [place] mg 00 First dose Medical on [facility] Branch 03/05/20 at 0900, Until Discontinu ed, Routine
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 : [facility] lisinopril 2020-0 2020- No 5mg 5 mg, Unive rs (PRINIVIL,Z 03-05- Oral, ity of ESTRIL) 14:00: 13:44 DAILY, [place] tablet 5 mg 00 :01 First dose Me dical on [facility] Branch 03/05/20 at 0900, Until Discontinu ed, Routine isosorbide 2020-0 2020- No 30mg 30 mg, Univ ers mononitrate 03-05-20 Oral, ity of (IMDUR) 24 14:00: 14:20 DAILY, [place] hr tablet 00 :04 First dose Medi birdie 30 mg on [facility] Branch 03/05/20 at 0900, Until Discontinu ed, Routine ranolazine 2020-0 Yes 500mg 500 mg, Uni vers (RANEXA) 12 4-20 Oral, ity of hr tablet 13:00: Q12H, [place] 500 mg 00 First dose Medical on [facility] 03/05/20 at 0800, Until Discontinu ed, Routine metoprolol 2020-0 Yes 25mg 25 mg, Unive rs succinate 4-20 Oral, BID, ity of XL (TOPROL 13:00: First dose [place] XL) tablet 00 on [facility] Medical 25 mg 03/05/20 at Branch 0800, Until Discontinu ed, Routine magnesium 2020-0 Yes 400mg 400 mg, Univ ers oxide 4-20 Oral, BID, ity of (MAG-OX 13:00: First dose [place] 400) tablet 00 on [facility] Medica l 400 mg 03/05/20 at Branch 0800, Until Discontinu ed, Routine aspirin 2020-0 Yes 81mg 81 mg, Univers chewable -20 Oral, QAM ity of tablet 81 13:00: WITH [place] mg 00 BREAKFAST, Medical First dose Branch on [facility] 03/05/20 at 0800, Until Discontinu ed, Routine Sliding 2020-0 Yes Subcutaneo Univ ers Scale 4-20 us, AC+HS, ity of Insulin-Reg 12:30: First dose [place] ular + Fsbg 00 on [facility] Medica l Testing 03/05/20 at Branch 0730, Until Discontinu ed, Routine glipiZIDE 2020-0 2020- No 5mg 5 mg, Univer s (GLUCOTROL) -20 04-22 Oral, ity of tablet 5 mg 12:30: 19:41 BIDAC, [place] 00 :44 First dose Medical on [facility] 03/05/20 at 0730, Until Discontinu ed, Routine glucagon 2020-0 Yes 1mg 1 mg, Univers (GLUCAGEN -20 Intramuscu ity of DIAGNOSTIC 03:02: [place], PRN, [place] KIT) 42 Starting Medical injection 1 [place] Branch mg 03/04/20 at 2202, Until Discontinu ed, ADAMA, Blood Glucose < or = 70 mg/dL and patient is unable to swallow or has mental changes. dextrose 50 2020-0 Yes 25mL 25 mL, Univ ers % in water 4-20 Slow IV ity of (D50W) 03:02: Push, PRN, [place] injection 42 Starting Medica l 25 mL [facility] 03/04/20 at 2202, Until Discontinu ed, ADAMA, Blood Glucose < or = 70 mg/dL and patient is unable to swallow or has mental status changes. furosemide 2020-0 Yes 40mg 40 mg, Unive rs (LASIX) 4-20 Oral, ity of tablet 40 03:00: QAM+PM, [place] mg 00 First dose Medical on [place] Branch 03/04/20 at 2200, Until Discontinu ed, Routine cyanocobala 2020-0 Yes 1000ug 1,000 mcg, Univers min 4-20 Subcutaneo ity of (VITAMIN 03:00: us, Q24H, [place] B12) 00 First dose Medical injection on [facility] 1,000 mcg 03/04/20 at 2200, Until Discontinu ed, Routine heparin 2020-0 Yes 5000U 5,000 Univers (porcine) 4-20 Units, ity of injection 03:00: Subcutaneo [place] 5,000 Units 00 us, Q8H, Medi birdie First dose Branch on [place] 03/04/20 at 2200, Until Discontinu ed, Routine ondansetron 2020-0 Yes 4mg 4 mg, Slow Univers (ZOFRAN 4-20 IV Push, ity of (PF)) 02:34: Q6HPRN, [place] injection 4 40 Starting Medi birdie mg [facility] 03/04/20 at 4, Until Discontinu ed, Routine, Nausea and Vomiting (N/V) traMADol 2020-0 2020- No 50mg 50 mg, Univer s (ULTRAM) 4-20 04-22 Oral, ity of tablet 50 02:34: 02:33 Q8HPRN, [place] mg 23 :23 Starting Medical [facility] 03/04/20 at 2134, Until 03/06/20 at 2133, Routine, Pain (scale 4-6) acetaminoph 2020-0 Yes 650mg 650 mg, Un mel en 4-20 Oral, ity of (TYLENOL) 02:34: Q6HPRN, [place] tablet 650 20 Starting Medic al mg [facility] 03/04/20 at 2134, Until Discontinu ed, Routine, Pain (scale 1-3) lisinopril 2020-0 Yes [id number] 5mg Take 1 Univers 5 mg tablet 4-18 tablet by ity of 00:00: mouth [place] 00 daily. Medical Branch isosorbide 2020-0 Yes [id number] 30mg Take 1 [facility] mononitrate 4-18 tablet by ity of 30 mg 24 hr 00:00: mouth [place] tablet 00 daily. Medical Branch lisinopril 2019-0 Yes [id number] 5mg Take 1 [facility] 5 mg tablet 4-18 tablet by ity of 00:00: mouth [place] 00 daily. Medical Branch isosorbide 2020-0 Yes [id number] 30mg Take 1 [facility] mononitrate 4-18 tablet by ity of 30 mg 24 hr 00:00: mouth [place] tablet 00 daily. Medical Branch lisinopril 0 2020- No [id number] 5mg Take 1 [facility] 5 mg tablet 4-18 04-22 tablet by it y of 00:00: 00:00 mouth [place] 00 :00 daily. Medical Branch isosorbide 2019-0 2020- No [id number] 30mg Take 1 [facility] mononitrate 4-18 04-22 tablet by it y of 30 mg 24 hr 00:00: 00:00 [place] 00 :00 daily. [facility] thiamine 2019-0 Yes 100mg Take 100 Univ ers (VITAMIN 4-17 mg by ity of B-1) 100 mg 17:34: mouth [place] tablet 27 daily. Medical Branch aspirin 81 2019-0 Yes 81mg Take 81 mg U nivers mg chewable 4-17 by mouth ity of tablet 17:34: daily. [place] [address] Medical Branch atorvastati 2019-0 Yes 40mg Take 40 mg Univers n 40 mg 4-17 by mouth ity of tablet 17:34: at [place] 27 bedtime. Medical Branch NaCl 0.9% 2019-0 Yes [...] N ORAL 4-17 mouth. ity of 17:34: [place] [address] Medical Branch thiamine 2020-0 Yes 100mg Take 100 Univ ers (VITAMIN 4-17 mg by ity of B-1) 100 mg 17:34: mouth [place] tablet 27 daily. Medical Branch aspirin 81 2020-0 Yes 81mg Take 81 mg U nivers mg chewable 4-17 by mouth ity of tablet 17:34: daily. [place] [address] Medical Branch atorvastati 2020-0 Yes 40mg Take 40 mg Univers n 40 mg 4-17 by mouth ity of tablet 17:34: at [place] [address] bedtime. Medical Branch NaCl 0.9% 2020-0 Yes [...] 4-17 mouth. ity of Vitamin D3, 17:34: [place] 2,000 unit 27 Medical capsule Branch metoprolol 2020-0 Yes 12.5mg Take 12.5 [facility] tartrate 4-17 mg by ity of 12.5 mg 17:34: mouth 2 [place] 27 (two) Medical times Branch daily. MULTIVITAMI 2020-0 Yes Take by Un mel N ORAL 4-17 mouth. ity of 17:34: [place] 27 Medical Branch potassium 2020-0 2020- No 20meq Take 20 [...] Until Discontinu ed, Routine furosemide 2020-0 Yes [id number] 40mg Take 1 [facility] 40 mg 4-17 tablet by ity of tablet 00:00: mouth [place] 00 every Medical morning Branch and evening. potassium 2020-0 Yes [id number] 20meq Take 20 [facility] chloride 20 4-17 mEq by ity of mEq packet 00:00: mouth [place] 00 daily. Medical Branch vitamin 2020-0 Yes [id number] 1000ug Take 1 U nivers B-12 1,000 4-17 tablet by ity of mcg tablet 00:00: mouth [place] 00 daily. Medical Branch furosemide 2020-0 Yes [id number] 40mg Take 1 [facility] 40 mg 4-17 tablet by ity of tablet 00:00: mouth [place] 00 every Medical morning Branch and evening. potassium 2020-0 Yes [id number] 20meq Take 20 [facility] chloride 20 4-17 mEq by ity of mEq packet 00:00: mouth [place] 00 daily. Medical Branch vitamin 2020-0 Yes [id number] 1000ug Take 1 U nivers B-12 1,000 4-17 tablet by ity of mcg tablet 00:00: mouth [place] 00 daily. Medical Branch furosemide 2020-0 2020- No [id number] 40mg Take 1 [facility] 40 mg 4-17 04-22 tablet by ity of tablet 00:00: 00:00 mouth [place] 00 :00 every Medical morning Branch and evening. potassium 2020-0 2020- No [id number] 20meq Take 20 [facility] chloride 20 4-17 04-22 mEq by ity o f mEq packet 00:00: 00:00 mouth [place] 00 :00 daily. Medical Branch vitamin 2020-0 2020- No [id number] 1000ug Take 1 Univers B-12 1,000 03-0222 tablet by ity of mcg tablet 00:00: 00:00 mouth [place] 00 :00 daily. Medical Branch cyanocobala 2020-0 Yes 1000ug 1,000 mcg, Univers min 4-16 Subcutaneo ity of (VITAMIN 20:45: [place], Q24H, [place] B12) 00 First dose Medical injection on [facility] Branch 1,000 mcg 03/01/20 at 1545, Until Discontinu ed, Routine isosorbide 2020-0 Yes 30mg 30 mg, Unive rs mononitrate 4-16 Oral, ity of (IMDUR) 24 14:00: DAILY, [place] hr tablet 00 First dose Medi birdie 30 mg on [facility] Branch 03/01/20 at 0900, Until Discontinu ed, Routine memantine 2020-0 Yes 10mg 10 mg, Univer s (NAMENDA) 4-16 Oral, ity of tablet 10 14:00: DAILY, [place] mg 00 First dose Medical on [facility] 03/01/20 at 0900, Until Discontinu ed, Routine
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 : [facility] lisinopril 2020-0 Yes 5mg 5 mg, Univer s (PRINIVIL,Z 4-16 Oral, ity of ESTRIL) 14:00: DAILY, [place] tablet 5 mg 00 First dose Me dical on [facility] Branch 03/01/20 at 0900, Until Discontinu ed, Routine enoxaparin 2020-0 Yes 30mg 30 mg, Unive rs (LOVENOX) 4-16 Subcutaneo ity of injection 14:00: [place], DAILY, [place] 30 mg 00 First dose Medical on [facility] Branch 03/01/20 at 0900, Until Discontinu ed, Routine KCL 2020-0 2020- No 20meq 20 mEq, Univers (KLOR-CON 4-16 04-16 Oral, ity of M20) tablet 14:00: 13:26 DAILY, [place] 20 mEq 00 :35 First dose Medical on [facility] 03/01/20 at 0900, Until Discontinu ed, Routine KCL 2020-0 Yes 40meq 40 mEq, Univers (KLOR-CON 4-16 Oral, BID, ity of M20) tablet 13:30: First dose [place] 40 mEq 00 on [facility] 03/01/20 at Branch 0830, Until Discontinu ed, Routine magnesium 2020-0 2020- No 2g 2 g, IV Univ ers sulfate in 03-01 Infusion, ity of water 2 03:30: 03:30 ONCE, 1 [place] gram/50 mL 00 :00 dose, Thu [facility] birdie (4 %) 2 g 02/29/20 at [facility] piggyback 2230 metoprolol 2020-0 2020- No 5mg 5 mg, Slow Univers (LOPRESSOR) 03-01 IV Push, ity of injection 5 03:30: 03:37 ONCE, 1 [place] mg 00 :00 dose, Thu [facility] 02/29/20 at Branch 2230, ADAMA glipiZIDE 2020-0 Yes 5mg 5 mg, Univers (GLUCOTROL) 03-01 Oral, ity of tablet 5 mg 02:45: BIDAC, [place] 00 First dose Medical on [facility] 02/29/20 at 2145, Until Discontinu ed, Routine insulin 2020-0 Yes 10U 10 Units, Unive rs glargine 03-01 Subcutaneo ity o f (LANTUS 02:45: us, QHS, [place] U-100) 00 First dose Medical injection on [facility] Branch 10 Units 02/29/20 at 2145, Until Discontinu ed, Routine OLANZapine 2020-0 Yes 2.5mg 2.5 mg, Uni vers (ZyPREXA) 03-01 Oral, QHS, ity of tablet 2.5 02:45: First dose [place] mg 00 on [facility] 02/29/20 at Branch 2145, Until Discontinu ed, Routine ranolazine 2020-0 Yes 500mg 500 mg, Uni vers (RANEXA) 12 03-01 Oral, ity of hr tablet 02:30: Q12H, [place] 500 mg 00 First dose Medical on [facility] 02/29/20 at 2130, Until Discontinu ed, Routine spironolact 2020-0 Yes 12.5mg 12.5 mg, Univers one 03-01 Oral, ity of (ALDACTONE) 02:30: DAILY, [place] tablet 12.5 00 First dose Me dical mg on [facility] 02/29/20 at 2130, Until Discontinu ed, Routine [...] at 2130, Until Discontinu ed, Routine KCL 2020-0 2020- No 40meq 40 mEq, Univers (KLOR-CON 4-16 04-16 Oral, ity of M20) tablet 01:00: 02:05 ONCE, 1 [place] 40 mEq 00 :00 dose, [facility] Medical 02/29/20 at Branch 2000, Routine acetaminoph 2020-0 Yes 650mg 650 mg, Un mel en 4-15 Oral, ity of (TYLENOL) 23:57: Q6HPRN, [place] tablet 650 25 Starting Medic al mg [facility] 02/29/20 at 1857, Until Discontinu ed, Routine, Pain (scale 1-3) NaCl 0.9% 2020-0 2020- No 500mL at 999 Univ ers (NS) bolus 4-15 04-15 mL/hr, 500 it y of infusion 23:30: 23:37 mL, IV [place] 500 mL 00 :00 Infusion, Medical ONCE, 1 Branch dose, [facility] 02/29/20 at 1830, ADAMA acetaminoph 2019- No 650mg 650 mg, U nivers en 02-2815 Oral, ity of (TYLENOL) 23:00: 22:36 ONCE, 1 [place] tablet 650 00 :00 dose, Wed Medi birdie mg 02/29/20 at Branch 1800, ADAMA donepezil 5 2019- Yes 5mg Take 5 mg U nivers mg tablet 02-14 by mouth ity of 00:00: daily. [place] 00 Medical Branch donepezil 5 2020- No 5mg Take 5 mg Univers mg tablet 02-14 by mouth ity o f 00:00: 00:00 daily. [place] 00 :00 Medical Branch nitroglycer 2019- No DISSOLVE U nivers in 0.4 mg 02-14 ONE TABLET ity of sublingual 00:00: 00:00 UNDER THE [place] tablet 00 :00 TONGUE Medical EVERY 5 Branch MINUTES NEEDED FOR CHEST PAIN. DO NOT EXCEED A TOTAL OF 3 DOSES IN 15 MINUTES KCL 10 mEq 2019- No 10meq Take 10 Un mel tablet 02-14 05-07 mEq by ity of 00:00: 00:00 mouth [place] 00 :00 daily. Medical Branch nitroglycer 2019- No DISSOLVE U nivers in 0.4 mg 02-14 ONE TABLET ity of sublingual 00:00: 00:00 UNDER THE [place] tablet 00 :00 TONGUE Medical EVERY 5 Branch MINUTES NEEDED FOR CHEST PAIN. DO NOT EXCEED A TOTAL OF 3 DOSES IN 15 MINUTES KCL 10 mEq 2019- No 10meq Take 10 Un mel tablet 02-14-07 mEq by ity of 00:00: 00:00 mouth [place] 00 :00 daily. Medical Branch memantine-d 2019- Yes 1{capsu Take 1 U nivers onepezil 3-03 le} capsule by ity o f (NAMZARIC) 23:00: mouth [place] 28-10 mg 52 daily. Medical CSpX Branch folic 2019- Yes Take by Univers acid/vit B 3-03 mouth. ity of complex and 23:00: [place] C (B 52 Medical COMPLEX-VIT Branch RAZA C-FOLIC ACID ORAL) potassium 2019-0 Yes 20meq Take 20 Univ ers chloride 20 3-03 mEq by ity of mEq packet 23:00: mouth [place] 52 daily. Medical Branch Cholecalcif 2020-0 Yes Take by Un eml ann, 3-03 mouth. ity of Vitamin D3, [...] by mouth ity of tablet 23:00: daily. [place] [address] Medical Branch atorvastati 2020-0 Yes 40mg Take 40 mg Univers n 40 mg 3-03 by mouth ity of tablet 23:00: at [place] [address] bedtime. Medical Branch NaCl 0.9% 2020-0 Yes [...] by ity of mEq packet 23:00: mouth [place] 52 daily. Medical Branch Cholecalcif 2020-0 Yes Take by Un mel ann, 3-03 mouth. ity of Vitamin D3, 23:00: [place] 2,000 unit 52 Medical capsule Branch metoprolol 2020-0 Yes 12.5mg Take 12.5 Univers tartrate 3-03 mg by ity of 12.5 mg 23:00: mouth 2 [place] [address] (two) Medical times Branch daily. MULTIVITAMI 2020-0 Yes Take by Un mel N ORAL 3-03 mouth. ity of 23:00: [place] [address] Medical Branch thiamine 2020-0 Yes 100mg Take 100 Univ ers (VITAMIN 3-03 mg by ity of B-1) 100 mg 23:00: mouth [place] tablet 52 daily. Medical Branch aspirin 81 2020-0 Yes 81mg Take 81 mg U nivers mg chewable 3-03 by mouth ity of tablet 23:00: daily. [place] [address] Medical Branch atorvastati 2020-0 Yes 40mg Take 40 mg Univers n 40 mg 3-03 by mouth ity of tablet 23:00: at [place] [address] bedtime. Medical Branch NaCl 0.9% 2020-0 Yes [...] ity of complex and 23:00: [place] C ([facility] Medical COMPLEX-VIT Branch RAZA C-FOLIC ACID ORAL) potassium 2020-0 Yes 20meq Take 20 Univ ers chloride 20 3-03 mEq by ity of mEq packet 23:00: mouth [place] [address] daily. Medical Branch Cholecalcif 2020-0 Yes Take by Un mel ann, 3-03 mouth. ity of Vitamin D3, 23:00: [place] 2,000 unit Medical capsule Branch metoprolol 2020-0 Yes 12.5mg Take 12.5 Univers tartrate 3-03 mg by ity of 12.5 mg 23:00: mouth 2 [place] [address] (two) Medical times Branch daily. MULTIVITAMI 2020-0 Yes Take by Un mel N ORAL 3-03 mouth. ity of 23:00: [place] [address] Medical Branch thiamine 2020-0 Yes 100mg Take 100 Univ ers (VITAMIN 3-03 mg by ity of B-1) 100 mg 23:00: mouth [place] tablet 52 daily. Medical Branch aspirin 81 2020-0 Yes 81mg Take 81 mg U nivers mg chewable 3-03 by mouth ity of tablet 23:00: daily. [place] [address] Medical Branch atorvastati 2020-0 Yes 40mg Take 40 mg Univers n 40 mg 3-03 by mouth ity of tablet 23:00: at [place] [address] bedtime. Medical Branch NaCl 0.9% 2020-0 Yes [...] by ity of mEq packet 23:00: mouth [place] 52 daily. Medical Branch Cholecalcif 2020-0 Yes Take by Un mel ann, 3-03 mouth. ity of Vitamin D3, 23:00: [place] 2,000 [facility] 52 Medical capsule Branch metoprolol 2020-0 Yes 12.5mg Take 12.5 Univers tartrate 3-03 mg by ity of 12.5 mg 23:00: mouth 2 [place] 52 (two) Medical times Branch daily. MULTIVITAMI 2020-0 Yes Take by Un mel N ORAL 3-03 mouth. ity of 23:00: [place] [address] Medical Branch thiamine 2020-0 Yes 100mg Take 100 Univ ers (VITAMIN 3-03 mg by ity of B-1) 100 mg 23:00: mouth [place] tablet 52 daily. Medical Branch aspirin 81 2020-0 Yes 81mg Take 81 mg U nivers mg chewable 3-03 by mouth ity of tablet 23:00: daily. [place] [address] Medical Branch atorvastati 2020-0 Yes 40mg Take 40 mg Univers n 40 mg 3-03 by mouth ity of tablet 23:00: at [place] 52 bedtime. Medical Branch NaCl 0.9% 2020-0 Yes 10mL Inject 10 Uni vers (NS) Soln 3-03 mL ity of 10 mL with 23:00: intravenou [place] sodium 52 sly once Medical chloride now. [place] 2.5 mEq/mL SolP 17.125 mEq atorvastati 2019-0 Yes 40mg 40 mg, Univ ers n (LIPITOR) 3-03 Oral, QHS, it y of tablet 40 03:00: First dose [place] mg 00 on [facility] Medical 01/16/20 at Branch 2100, Until Discontinu ed, Routine ranolazine 2019-0 2020- No [id number] 500mg Take 1 Univers 500 mg 12 01-16- tablet by ity of hr tablet 00:00: 04:59 mouth [place] 00 :00 every 12 Medical (twelve) Branch hours for 30 days. ranolazine 2020-0 2020- No [id number] 500mg Take 1 [facility] 500 mg 12 01-16- tablet by ity of hr tablet 00:00: 04:59 mouth [place] 00 :00 every 12 Medical (twelve) Branch hours for 30 days. ranolazine 2020-0 2020- No [id number] 500mg Take 1 [facility] 500 mg 12 01-16- tablet by ity of hr tablet 00:00: 04:59 mouth [place] 00 :00 every 12 Medical (twelve) Branch hours for 30 days. ranolazine 2020-0 2020- No [id number] 500mg Take 1 [facility] 500 mg 12 01-16-03 tablet by ity of hr tablet 00:00: 04:59 mouth [place] 00 :00 every 12 Medical (twelve) Branch hours for 30 days. ranolazine 2019-0 Yes 500mg 500 mg, Uni vers (RANEXA) 12 - Oral, ity of hr tablet 22:30: Q12H, [place] 500 mg 00 First dose Medical on Thu Branch 01/16/20 at 1630, Until Discontinu ed, Routine insulin 2019-0 Yes 30U 30 Units, Unive rs glargine - Subcutaneo ity o f (LANTUS 15:00: us, DAILY, [place] U-100) 00 First dose Medical injection on Thu Branch 30 Units 01/16/20 at 0900, Until Discontinu ed furosemide 2020-0 Yes 40mg 40 mg, Unive rs (LASIX) 01-15 Oral, ity of tablet 40 15:00: DAILY, [place] mg 00 First dose Medical on Thu Branch 01/16/20 at 0900, Until Discontinu ed, Routine aspirin 2020-0 Yes 81mg 81 mg, Univers chewable 01-15 Oral, ity of tablet 81 15:00: DAILY, [place] mg 00 First dose Medical on Thu01/16/20 at 0900, Until Discontinu ed, Routine metoprolol 2020-0 Yes 12.5mg 12.5 mg, U nivers tartrate 01-15 Oral, BID, ity o f (LOPRESSOR) 14:00: First dose [place] tablet 12.5 00 on [facility] Medica l mg 01/16/20 at Branch 0800, Until Discontinu ed, Routine Sliding 2020-0 Yes Subcutaneo Univ ers Scale 02 us, Q6H, ity of Insulin-Reg 12:00: First dose [place] ular + Fsbg 00 on [facility] Medica l Testing 01/16/20 at Branch 0600, Until Discontinu ed, Routine glucagon 2020-0 Yes 1mg 1 mg, Univers (GLUCAGEN 01-15 Intramuscu ity of DIAGNOSTIC 10:52: lar, PRN, [place] KIT) 33 Starting Medical injection 1 Thu01/16/20 Br anch mg at 0452, Until Discontinu ed, ADMAA, Blood Glucose < or = 70 mg/dL and patient is unable to swallow or has mental changes. dextrose 50 2020-0 Yes 25mL 25 mL, Univ ers % in water 01-15 Slow IV ity of (D50W) 10:52: Push, PRN, [place] injection 33 Starting Medica l 25 mL [facility] 01/16/20 Branch at 0452, Until Discontinu ed, ADAMA, Blood Glucose < or = 70 mg/dL and patient is unable to swallow or has mental status changes. nitroglycer 2020-0 Yes .4mg 0.4 mg, Uni vers in 01-15 Sublingual ity of (NITROSTAT) 07:57: , Q5MIN [place] sublingual 30 PRN, Medical tablet 0.4 Starting Branc h mg [facility] 01/16/20 at 0157, Until Discontinu ed, Routine, Chest pain ondansetron 2020-0 Yes 4mg 4 mg, Slow Univers (ZOFRAN 3-02 IV Push, ity of (PF)) 07:55: Q6HPRN, [place] injection 4 01 Starting Medi birdie mg 01/16/20 Branch at 0155, Until Discontinu ed, Routine, Nausea and Vomiting (N/V) morpHINE 2019-0 2020- No 2mg 2 mg, Slow Un mel injection 2 01-15 03-03 IV Push, ity of mg 07:54: 07:53 Q6HPRN, [place] 55 :55 Starting Medical 01/16/20 Branch at 0154, Until 01/17/20 at 0153, Routine, Pain (scale 7-10) traMADol 2019-0 2020- No 50mg 50 mg, Univer s (ULTRAM) 01-15 03-04 Oral, ity of tablet 50 07:54: 07:53 Q8HPRN, [place] mg 47 :47 Starting Medical [facility] 01/16/20 Branch at 0154, Until 01/18/20 at 0153, Routine, Pain (scale 4-6) acetaminoph 2019-0 Yes 650mg 650 mg, Un mel en 01-15 Oral, ity of (TYLENOL) 07:54: Q6HPRN, [place] tablet 650 44 Starting Medic al mg [facility] 01/16/20 Branch at 0154, Until Discontinu ed, Routine, Pain (scale 1-3) insulin 2019-0 2020- No 8U 8 Units, Unive rs regular 01-15 03-02 Slow IV ity of human 06:45: 05:40 Push, [place] (HUMULIN R) 00 :00 ONCE, 1 Medic al injection 8 dose, [facility] Bra nch Units 01/16/20 at 0045, STAT heparin 2020-0 Yes 1000U/h 1,000 Univer s 25,000 3-02 Units/hr ity of unit/250 mL 06:00: (10 [place] (Premixed 00 mL/hr), IV Medi birdie Bag) in Infusion, Branch NaCl 0.45 % CONTINUOUS weight , Starting based Thu01/16/20 dosing [facility] at 0000, protocol Until Discontinu ed heparin 2020-0 2020- No 4000U 4,000 Univers 1000 01-15-02 Units, IV ity of unit/mL 05:45: 05:47 Push, [place] injection 00 :00 ONCE, 1 Medical Soln 4,000 dose, [facility]ickie Glez ch Units 01/15/20 at 2345, ADAMA furosemide 2018-11 Yes [id number] 40mg Take 1 Univers 40 mg 0-26 tablet by ity of tablet 00:00: mouth [place] 00 daily. Medical Branch furosemide 2018-11 Yes [id number] 40mg Take 1 [facility] 40 mg 0-26 tablet by ity of tablet 00:00: mouth [place] 00 daily. Medical Branch furosemide 2018-11 Yes [id number] 40mg Take 1 [facility] 40 mg 0-26 tablet by ity of tablet 00:00: mouth [place] 00 daily. Medical Branch furosemide 2018-11 Yes [id number] 40mg Take 1 [facility] 40 mg 0-26 tablet by ity of tablet 00:00: mouth [place] 00 daily. Medical Branch furosemide 2018-11 2020- No [id number] 40mg Take 1 [facility] 40 mg 0-26 04-17 tablet by ity of tablet 00:00: 00:00 mouth [place] 00 :00 daily. Medical Branch magnesium 2018-11 Yes [id number] 400mg Take 400 Univers oxide 420 0-23 mg by ity of mg Tab 00:00: mouth [place] 00 daily. Medical Branch magnesium 2018-11 Yes [id number] 400mg Take 400 Univers oxide 420 0-23 mg by ity of mg Tab 00:00: mouth [place] 00 daily. Medical Branch magnesium 2018- Yes [id number] 400mg Take 400 Univers oxide 420 0-23 mg by ity of mg Tab 00:00: mouth [place] 00 daily. Medical Branch magnesium 2018- Yes [id number] 400mg Take 400 Univers oxide 420 0-23 mg by ity of mg Tab 00:00: mouth [place] 00 daily. Medical Branch magnesium 2019- Yes [id number] 400mg Take 400 Univers oxide 420 0-23 mg by ity of mg Tab 00:00: mouth [place] 00 daily. Medical Branch magnesium 2019- Yes [id number] 400mg Take 400 Univers oxide 420 0-23 mg by ity of mg Tab 00:00: mouth [place] 00 daily. Medical Branch magnesium 2019- 2020- No [id number] 400mg Take 400 Univers oxide 420 0-23 04-22 mg by ity of mg Tab 00:00: 00:00 mouth [place] 00 :00 daily. Medical Branch Insulin 2019- Yes [id number] 30U inject 30 Univers Glargine 9-11 Units ity of 100 unit/mL 00:00: under the [place] (3 mL) 00 skin every Medical injection morning. Branch Insulin 2018-0 Yes [id number] 30U inject 30 Univers Glargine 9-11 Units ity of 100 unit/mL 00:00: under the [place] (3 mL) 00 skin every Medical injection morning. Branch Insulin Yes [id number] 30U inject 30 Univers Glargine 9-11 Units ity of 100 unit/mL 00:00: under the [place] (3 mL) 00 skin every Medical injection morning. Branch Insulin Yes [id number] 30U inject 30 Univers Glargine 9-11 Units ity of 100 unit/mL 00:00: under the [place] (3 mL) 00 skin every Medical injection morning. Branch Insulin Yes [id number] 30U inject 30 Univers Glargine 9-11 Units ity of 100 unit/mL 00:00: under the [place] (3 mL) 00 skin every Medical injection morning. Branch Insulin Yes [id number] 30U inject 30 Univers Glargine 9-11 Units ity of 100 unit/mL 00:00: under the [place] (3 mL) 00 skin every Medical injection morning. Branch Insulin Yes [id number] 30U inject 30 Univers Glargine 9-11 Units ity of 100 unit/mL 00:00: under the [place] (3 mL) 00 skin every Medical injection morning. Branch Insulin 2020- No [id number] 30U inject 30 Univers Glargine 9-11 04-22 Units ity of 100 unit/mL 00:00: 00:00 under the [place] (3 mL) 00 :00 skin every Medical injection morning. Branch memantine-d 2018- Yes 1{capsu Take 1 U nivers onepezil 5-10 le} capsule by itazra o f (NAMZARIC) 15:26: mouth [place] 28-10 mg 43 daily. Medical CSpX Branch enoxaparin 2018-0 Yes 30mg inject 30 Un mel injection 5-10 mg under ity of 15:26: the skin. [place] 43 Medical Branch Cholecalcif 2018-0 Yes Take by Un mel ann, 5-10 mouth. ity of Vitamin D3, 15:26: [place] 2,000 unit 43 Medical capsule Branch metoprolol 2019-0 Yes 12.5mg Take 12.5 Univers tartrate 5-10 mg by ity of 12.5 mg 15:26: mouth 2 [place] [address] (two) Medical times Branch daily. MULTIVITAMI 2019-0 Yes Take by Un mel N ORAL 5-10 mouth. ity of 15:26: [place] [address] Medical Branch thiamine 2018-0 Yes 100mg Take 100 Univ ers (VITAMIN 5-10 mg by ity of B-1) 100 mg 15:26: mouth [place] tablet 43 daily. Medical Branch aspirin 81 2018-0 Yes 81mg Take 81 mg U nivers mg chewable 5-10 by mouth ity of tablet 15:26: daily. [place] [address] Medical Branch atorvastati 0 Yes 40mg Take 40 mg Univers n 40 mg 5-10 by mouth ity of tablet 15:26: at [place] 43 bedtime. Medical Branch furosemide 0 Yes 40mg Take 40 mg U nivers 40 mg 5-10 by mouth ity of tablet 15:26: daily. [place] [address] Medical Branch NaCl 0.9% 2018-0 Yes 10mL [...] mg 43 daily. Medical CSpX Branch enoxaparin 2019-0 Yes 30mg inject 30 Un mel injection 5-10 mg under ity of 15:26: the skin. [place] [address] Medical Branch Cholecalcif 2019-0 Yes Take by Un mel ann, 5-10 mouth. ity of Vitamin D3, 15:26: [place] 2,000 unit 43 Medical capsule Branch metoprolol 2019-0 Yes 12.5mg Take 12.5 Univers tartrate 5-10 mg by ity of 12.5 mg 15:26: mouth 2 [place] [address] (two) Medical times Branch daily. MULTIVITAMI 2019-0 Yes Take by Un mel N ORAL 5-10 mouth. ity of 15:26: [place] [address] Medical Branch thiamine 2018-0 Yes 100mg Take 100 Univ ers (VITAMIN 5-10 mg by ity of B-1) 100 mg 15:26: mouth [place] tablet 43 daily. Medical Branch aspirin 81 2019-0 Yes 81mg Take 81 mg U nivers mg chewable 5-10 by mouth ity of tablet 15:26: daily. [address] Branch atorvastati 2018-0 Yes 40mg Take 40 mg Univers n 40 mg 5-10 by mouth ity of tablet 15:26: at [place] [address] bedtime. Medical Branch furosemide 2019-0 Yes 40mg Take 40 mg U nivers 40 mg 5-10 by mouth ity of tablet 15:26: daily. [place] [address] Medical Branch NaCl 0.9% 2018-0 Yes 10mL Inject 10 Uni vers (NS) Soln 5-10 mL ity of 10 mL with 15:26: intravenou [place] sodium 43 sly once Medical chloride now. Branch 2.5 mEq/mL SolP 17.125 mEq insulin 2018-0 Yes [id number] 4U inject 4 U nivers lispro, 5-10 Units ity of human, 100 00:00: under the [place] unit/mL 00 skin 3 Medical injection (three) Branch times daily before meals. insulin 2018-0 Yes [id number] 4U inject 4 U nivers lispro, 5-10 Units ity of human, 100 00:00: under the [place] unit/mL 00 skin 3 Medical injection (three) Branch times daily before meals. insulin 2019-0 Yes [id number] 4U inject 4 U nivers lispro, 5-10 Units ity of human, 100 00:00: under the [place] unit/mL 00 skin 3 Medical injection (three) Branch times daily before meals. insulin 2019-0 Yes [id number] 4U inject 4 U nivers lispro, 5-10 Units ity of human, 100 00:00: under the [place] unit/mL 00 skin 3 Medical injection (three) Branch times daily before meals. insulin 2019-0 Yes [id number] 4U inject 4 U nivers lispro, 5-10 Units ity of human, 100 00:00: under the [place] unit/mL 00 skin 3 Medical injection (three) Branch times daily before meals. insulin 2019-0 Yes [id number] 4U inject 4 U nivers lispro, 5-10 Units ity of human, 100 00:00: under the [place] unit/mL 00 skin 3 Medical injection (three) Branch times daily before meals. Insulin 2018- Yes [id number] 18U inject Uni vers Glargine 5-10 18-24 ity of 100 unit/mL 00:00: Units [place] (3 mL) 00 under the Medical injection skin every Bran ch morning. insulin 2018-0 Yes [id number] 4U inject 4 U nivers lispro, 5-10 Units ity of human, 100 00:00: under the [place] unit/mL 00 skin 3 Medical injection (three) Branch times daily before meals. insulin 2018- Yes [id number] 4U inject 4 U nivers lispro, 5-10 Units ity of human, 100 00:00: under the [place] unit/mL 00 skin 3 Medical injection (three) Branch times daily before meals. insulin Yes [id number] 4U inject 4 U nivers lispro, 5-10 Units ity of human, 100 00:[place]: [place] 00 skin 3 Medical injection (three) Branch times daily before meals. insulin Yes [id number] 4U inject 4 U nivers lispro, 5-10 Units ity of human, 100 00:[place]: [place] unit/mL 00 skin 3 Medical injection (three) Branch times daily before meals. insulin 2018- Yes [id number] 4U inject 4 U nivers lispro, 5-10 Units ity of human, 100 00:[place]: [place] unit/mL 00 skin 3 Medical injection (three) Branch times daily before meals. insulin 2020- No [id number] 4U inject 4 Univers lispro, 5-10 05-07 Units ity of human, 100 00:00: 00:00 [place] unit/mL 00 :00 skin 3 Medical injection (three) Branch times daily before meals. insulin 2020- No [id number] 4U inject 4 Univers lispro, 5-10 05-07 Units ity of human, 100 00:00: 00:00 [place] unit/mL 00 :00 skin 3 Medical injection (three) Branch times daily before meals. Insulin 2019- No [id number] 18U inject Un mel Glargine 5-10 09-11 18-24 ity of 100 unit/mL 00:00: 00:00 [place] ([place]) 00 :00 under the Medical injection skin every Bran ch morning. folic Yes Take by Univers acid/vit B 3-08 mouth. ity of complex and 16:39: [facility] (B 29 Medical COMPLEX-VIT Branch RAZA C-FOLIC ACID ORAL) potassium Yes 20meq Take 20 Univ ers chloride 20 3-08 mEq by ity of mEq packet 16:39: mouth [place] 29 daily. Medical Branch folic Yes Take by Univers acid/vit B 3-08 mouth. ity of complex and 16:39: [facility] (B 29 Medical COMPLEX-VIT Branch RAZA C-FOLIC [...] Mononitrate Mononitrate [place] in the [facility] Jose Antonio Brady Yes Anneliese 1 capsule [facility] Immunizations Ordered Filled Immunization Date Status Comments [facility] e Immunization Name Name SARS-COV-2 COVID-19 2021-09-16 Completed Unive rsity of MODERNA VACCINE 00:00:00 [facility] SARS-COV-2 COVID-19 2021-09-16 Completed Unive rsity of MODERNA VACCINE 00:00:00 [facility] SARS-COV-2 COVID-19 2021-09-16 Completed Unive rsity of MODERNA VACCINE 00:00:00 [facility] SARS-COV-2 COVID-19 2021-08-17 Completed Unive rsity of MODERNA VACCINE 00:00:00 [facility] Influenza High Dose 2021-08-17 Completed Unive rsity of 00:00:00 [facility] SARS-COV-2 COVID-19 2021-08-17 Completed Unive rsity of MODERNA VACCINE 00:00:00 [facility] Influenza High Dose 2021-08-17 Completed Unive rsity of 00:00:00 [facility] SARS-COV-2 COVID-19 2021-08-17 Completed Unive rsity of MODERNA VACCINE 00:00:00 [facility] Influenza High Dose 2021-08-17 Completed Unive rsity of 00:00:00 [facility] Zoster(Zostavax)( 2020-09-14 Completed Unive rsity of ingles) 00:00:00 [facility] Zoster(Zostavax)( 2020-09-14 Completed Unive rsity of ingles) 00:00:00 [facility] Zoster(Zostavax)( 2020-09-14 Completed Unive rsity of ingles) 00:00:00 [facility] Influenza High Dose 2020-07-13 Completed Unive rsity of 00:00:00 [facility] Influenza High Dose 2020-07-13 Completed Unive rsity of 00:00:00 [facility] Influenza High Dose 2020-07-13 Completed Unive rsity of 00:00:00 [facility] Influenza High Dose 2019-09-15 Completed Unive rsity of 00:00:00 [facility] Influenza High Dose 2019-09-15 Completed Unive rsity of 00:00:00 [facility] Influenza High Dose 2019-09-15 Completed Unive rsity of 00:00:00 [facility] Influenza Virus 2018-09-09 Completed Universit y of Vaccine 00:00:00 [facility] Influenza Virus 2018-09-09 Completed Universit y of Vaccine 00:00:00 [facility] Influenza Virus 2018-09-09 Completed Universit y of Vaccine 00:00:00 [facility] Influenza Virus 2018-09-09 Completed Universit y of Vaccine 00:00:00 [facility] Influenza Virus 2018-09-09 Completed Universit y of Vaccine 00:00:00 [facility] Influenza Virus 2018-09-09 Completed Universit y of Vaccine 00:00:00 [facility] Influenza Virus 2018-09-09 Completed Universit y of Vaccine 00:00:00 [facility] Influenza Virus 2018-09-09 Completed Universit y of Vaccine 00:00:00 [facility] Influenza Virus 2018-09-09 Completed Universit y of Vaccine 00:00:00 [facility] Influenza Virus 2018-09-09 Completed Universit y of Vaccine 00:00:00 [facility] Influenza Virus 2018-09-09 Completed Universit y of Vaccine 00:00:00 [facility] Influenza Virus 2018-09-09 Completed Universit y of Vaccine 00:00:00 [facility] Influenza Virus 2018-09-09 Completed Universit y of Vaccine 00:00:00 [facility] Influenza Virus 2018-09-09 Completed Universit y of Vaccine 00:00:00 [facility] Influenza Virus 2018-09-09 Completed Universit y of Vaccine 00:00:00 [facility] Influenza Virus 2018-09-09 Completed Universit y of Vaccine 00:00:00 [facility] Influenza Virus 2018-09-09 Completed Universit y of Vaccine 00:00:00 [facility] Influenza Virus 2018-09-09 Completed Universit y of Vaccine 00:00:00 [facility] Influenza Virus 2018-09-09 Completed Universit y of Vaccine 00:00:00 [facility] Influenza Virus 2018-09-09 Completed Universit y of Vaccine 00:00:00 [place] [facility] Influenza Virus 2018-09-09 Completed Universit y of Vaccine 00:00:00 [facility] Branch Pneumococcal 2016-11-02 Completed University o f [...] 2016-11-02 Completed University o f Polysaccharide, 00:00:00 [place] [facility] ical PPSV23 (PNEUMOVAX) Branch Vital Signs Vital Name Observation Time Observation Value Comments Source Systolic blood 2021-11-02 17:17:00 109 mm[Hg] Univer sity of pressure [facility] Diastolic blood 2021-11-02 17:17:00 67 mm[Hg] Unive rsity of [facility] Heart rate 2021-11-02 17:17:00 84 /min [facility] Body temperature 2021-11-02 17:17:00 36.44 Priyanka [facility] 2021-11-02 17:17:00 18 /min [facility] Oxygen saturation in 2021-11-02 17:17:00 95 /min [facility] Arterial blood by [facility] Pulse oximetry Branch Body weight 2021-11-02 09:17:00 79.969 kg [facility] BMI 2021-11-02 09:17:00 27.61 kg/m2 [facility] Body height 2021-10-31 05:46:00 170.2 cm [facility] Systolic blood 2021-04-25 22:36:00 118 mm[Hg] Univer sity of pressure [facility] Diastolic blood 2021-04-25 22:36:00 70 mm[Hg] Unive rsity of pressure [facility] Heart rate 2021-04-25 22:36:00 68 /min [facility] Respiratory rate 2021-04-25 22:36:00 18 /min [facility] O[facility] in 2021-04-25 22:36:00 99 /min University of Arterial blood by [facility] Pulse oximetry Branch Body temperature 2021-04-25 15:42:00 36.44 Priyanka Univ ersity of [place] [facility] Body weight 2021-04-25 15:42:00 81.647 kg Universi ty of [place] [facility] BMI 2021-04-25 15:42:00 27.37 kg/m2 Universi ty of [place] [facility] Systolic blood 2020-06-26 10:00:00 124 mm[Hg] Univer sity of pressure [place] [facility] Diastolic blood 2020-06-26 10:00:00 78 mm[Hg] Unive rsity of pressure [place] [facility] Respiratory rate 2020-06-26 10:00:00 18 /min Univ ersity of [place] [facility] Oxygen saturation in 2020-06-26 10:00:00 98 /min University of Arterial blood by [facility] Pulse oximetry Branch Heart rate 2020-06-26 08:56:00 98 /min Universi ty of [place] [facility] Body temperature 2020-06-26 08:56:00 37.17 Priyanka Univ ersity of [place] [facility] Body weight 2020-06-26 08:56:00 74.844 kg Universi ty of [place] [facility] BMI 2020-06-26 08:56:00 25.09 kg/m2 Universi ty of [place] [facility] Systolic blood 2020-06-26 10:00:00 124 mm[Hg] Univer sity of pressure [place] [facility] Diastolic blood 2020-06-26 10:00:00 78 mm[Hg] Unive rsity of pressure [place] [facility] Respiratory rate 2020-06-26 10:00:00 18 /min Univ ersity of [place] [facility] Oxygen saturation in 2020-06-26 10:00:00 98 /min University of Arterial blood by [facility] Pulse oximetry Branch Heart rate 2020-06-26 08:56:00 98 /min Universi ty of [place] [facility] Body temperature 2020-06-26 08:56:00 37.17 Priyanka Univ ersity of [place] [facility] Body weight 2020-06-26 08:56:00 74.844 kg Universi ty of [place] [facility] BMI 2020-06-26 08:56:00 25.09 kg/m2 Universi ty of [place] [facility] Systolic blood 2020-05-24 15:47:29 166 mm[Hg] Univer sity of pressure [place] [facility] Diastolic blood 2020-05-24 15:47:29 89 mm[Hg] Unive rsity of pressure [place] [facility] Heart rate 2020-05-24 15:47:29 86 /min Universi ty of [place] [facility] Respiratory rate 2020-05-24 15:47:29 16 /min Univ ersity of [place] [facility] Oxygen saturation in 2020-05-24 15:47:29 97 /min University of Arterial blood by [facility] Pulse oximetry Branch Body temperature 2020-05-24 11:44:00 36.94 Priyanka Univ ersity of [place] [facility] Body height 2020-05-24 11:44:00 172.7 cm Universi ty of [place] [facility] Body weight 2020-05-24 11:44:00 74.844 kg Universi ty of [place] [facility] BMI 2020-05-24 11:44:00 25.09 kg/m2 Universi ty of [place] [facility] Systolic blood 2020-05-24 15:47:29 166 mm[Hg] Univer sity of pressure [place] [facility] Diastolic blood 2020-05-24 15:47:29 89 mm[Hg] Unive rsity of pressure [place] [facility] Heart rate 2020-05-24 15:47:29 86 /min Universi ty of [place] [facility] Respiratory rate 2020-05-24 15:47:29 16 /min Univ ersity of [place] [facility] Oxygen saturation in 2020-05-24 15:47:29 97 /min University of Arterial blood by [facility] Pulse oximetry Branch Body temperature 2020-05-24 11:44:00 36.94 Priyanka Univ ersity of [place] [facility] Body height 2020-05-24 11:44:00 172.7 cm Universi ty of [place] [facility] Body weight 2020-05-24 11:44:00 74.844 kg Universi ty of [place] [facility] BMI 2020-05-24 11:44:00 25.09 kg/m2 Universi ty of [place] [facility] Systolic blood 2020-03-24 02:31:00 127 mm[Hg] Univer sity of pressure [place] [facility] Diastolic blood 2020-03-24 02:31:00 72 mm[Hg] Unive rsity of pressure [place] [facility] Heart rate 2020-03-24 02:31:00 69 /min Universi ty of [place] [facility] Body temperature 2020-03-24 02:31:00 36.39 Priyanka Univ ersity of [place] [facility] Respiratory rate 2020-03-24 02:31:00 18 /min Univ ersity of [place] [facility] Oxygen saturation in 2020-03-24 02:31:00 97 /min University of Arterial blood by [facility] Pulse oximetry Branch Systolic blood 2020-03-23 21:35:00 100 mm[Hg] Univer sity of pressure [place] [facility] Diastolic blood 2020-03-23 21:35:00 59 mm[Hg] Unive rsity of pressure [place] [facility] Heart rate 2020-03-23 21:35:00 79 /min Universi ty of [place] [facility] Body temperature 2020-03-23 21:35:00 36.78 Priyanka Univ ersity of [place] [facility] Respiratory rate 2020-03-23 21:35:00 18 /min Univ ersity of [place] [facility] Oxygen saturation in 2020-03-23 21:35:00 99 /min University of Arterial blood by [facility] Pulse oximetry Branch Body weight 2020-03-23 09:41:00 76.613 kg Universi ty of [place] [facility] BMI 2020-03-23 09:41:00 26.45 kg/m2 Universi ty of [place] [facility] Body height 2020-03-23 03:43:00 170.2 cm Universi ty of [place] [facility] Systolic blood 2020-03-21 20:55:00 128 mm[Hg] Univer sity of pressure [place] [facility] Diastolic blood 2020-03-21 20:55:00 61 mm[Hg] Unive rsity of pressure [place] [facility] Heart rate 2020-03-21 20:55:00 75 /min Universi ty of [place] [facility] Respiratory rate 2020-03-21 20:55:00 10 /min Univ ersity of [place] [facility] Oxygen saturation in 2020-03-21 20:55:00 98 /min University of Arterial blood by [facility] Pulse oximetry Branch Body temperature 2020-03-21 20:03:00 37.83 Priyanka Univ ersity of [place] [facility] Body height 2020-03-21 20:03:00 170.2 cm Universi ty of [place] [facility] Body weight 2020-03-21 20:03:00 76.204 kg Universi ty of [place] [facility] BMI 2020-03-21 20:03:00 26.31 kg/m2 Universi ty of [place] [facility] Systolic blood 2020-03-07 20:50:00 118 mm[Hg] Univer sity of pressure [place] [facility] Diastolic blood 2020-03-07 20:50:00 65 mm[Hg] Unive rsity of pressure [place] [facility] Heart rate 2020-03-07 20:50:00 85 /min Universi ty of [place] [facility] Body temperature 2020-03-07 20:50:00 36.39 Priyanka Univ ersity of [place] [facility] Respiratory rate 2020-03-07 20:50:00 18 /min Univ ersity of [place] [facility] Oxygen saturation in 2020-03-07 20:50:00 95 /min University of Arterial blood by [place] [employer] Pulse oximetry Branch Body height 2020-03-05 02:35:00 172.7 cm Universi ty of [place] [facility] Body weight 2020-03-05 02:35:00 73.483 kg Universi ty of [place] [facility] BMI 2020-03-05 02:35:00 24.63 kg/m2 Universi ty of [place] [facility] Systolic blood 2020-03-02 15:49:00 122 mm[Hg] Univer sity of pressure [place] [facility] Diastolic blood 2020-03-02 15:49:00 81 mm[Hg] Unive rsity of pressure [place] [facility] Heart rate 2020-03-02 15:49:00 89 /min Universi ty of [place] [facility] Body temperature 2020-03-02 15:49:00 37.06 Priyanka Univ ersity of [place] [facility] Respiratory rate 2020-03-02 15:49:00 19 /min Univ ersity of [place] [facility] Oxygen saturation in 2020-03-02 15:49:00 96 /min University of Arterial blood by [employer] [facility] Pulse oximetry Branch Body height 2020-03-01 00:54:00 170.2 cm Universi ty of [place] [facility] Body weight 2020-03-01 00:54:00 76.975 kg Universi ty of [place] [facility] BMI 2020-03-01 00:54:00 26.58 kg/m2 Universi ty of [place] [facility] Systolic blood 2020-01-17 21:08:00 116 mm[Hg] Univer sity of pressure [place] [facility] Diastolic blood 2020-01-17 21:08:00 78 mm[Hg] Unive rsity of pressure [place] [facility] Heart rate 2020-01-17 21:08:00 88 /min [facility] Body temperature 2020-01-17 21:08:00 36.72 Priyanka [facility] Respiratory rate 2020-01-17 21:08:00 18 /min [facility] Oxygen saturation in 2020-01-17 21:08:00 98 /min [facility] Arterial blood by [facility] Pulse oximetry [place] Body height 2020-01-16 06:21:00 172.7 cm [facility] Body weight 2020-01-16 04:35:00 83.462 kg [facility] BMI 2020-01-16 04:35:00 27.98 kg/m2 [facility] Procedures Procedure Date / Time Performing Clinician Source Performed EXTERNAL PROVIDER RECORDS 2021-11-19 06:01:00 Doctor Unassigned, [facility] [place] [facility] POCT GLUCOSE (AUTOMATED) 2021-11-02 22:49:00 Aida Shah [facility] POCT GLUCOSE (AUTOMATED) 2021-11-02 17:06:00 Aida Shah [facility] POCT GLUCOSE (AUTOMATED) 2021-11-02 13:30:00 Aida Shah [facility] TROPONIN I 2021-11-02 09:29:00 Alexandra Hdz [facility] BASIC METABOLIC PANEL 2021-11-02 09:29:00 Sridhar Gordon [facility] (NA, K, CL, CO2, GLUCOSE, Medica l Branch BUN, CREATININE, CA) CBC WITH DIFF 2021-11-02 09:29[facility] 2021-11-02 09:29:00 Alexandra Hdz [facility] POCT GLUCOSE (AUTOMATED) 2021-11-02 01:27:00 Aida Shah [facility] POCT GLUCOSE (AUTOMATED) 2021-11-01 17:37:00 Aida Shah [facility] POCT GLUCOSE (AUTOMATED) 2021-11-01 13:40:00 Aida Shah [facility] POCT GLUCOSE (AUTOMATED) 2021-11-01 01:10:00 AlyssaKeerthii [facility] POCT GLUCOSE (AUTOMATED) 2021-10-31 22:28:00 Aida Shah [facility] POCT GLUCOSE (AUTOMATED) 2021-10-31 17:29:[address] [facility] TROPONIN I 2021-10-31 16:25:00 Alexandra Hdz [facility] TRANSTHORACIC ECHO (TTE) 2021-10-31 15:53:00 Alexandra Hdz [facility] COMPLETE W/ CONTRAST Medical [facility] POCT GLUCOSE (AUTOMATED) 2021-10-31 13:39:[address] [facility] TROPONIN I 2021-10-31 10:08[facility] 2021-10-31 10:08:00 [facility] ([facility], K, CL, CO2, GLUCOSE, Medica l Branch BUN, CREATININE, CA) LIPID PANEL ([id number])(TOTAL 2021-10-31 10:08:00 Alexandra Hdz [facility] TRIGLY[facility]ERIDES, HDL) CBC WITH DIFF 2021-10-31 10:08:00 [facility] URINALYSIS 2021-10-31 10:08:00 [facility] N-TERMINAL PRO-BNP 2021-10-31 10:08:00 Alexandra Hdz [facility] TROPONIN I 2021-10-31 06:17:00 [facility] XR CHEST 1 VW 2021-10-31 01:30:56 Martha Drake [facility] LIPASE 2021-10-31 01:25:00 Martha Drake [facility] TROPONIN I 2021-10-31 01:25:00 Martha Drake [facility] COMP. METABOLIC PANEL 2021-10-31 01:25:00 Martha Drake [facility] ([id number]) Medical Branch CBC WITH DIFF 2021-10-31 01:25:00 Martha Drake [facility] GLYCOSYLATED HEMOGLOBIN 2021-10-31 01:25:00 Sarah Adorno [facility] ([id number]) Medical Branch PROTHROMBIN TIME / INR 2021-10-31 01:25:00 Martha Drake [facility] ACTIVATED PARTIAL 2021-10-31 01:25:[address] [facility] THRMPLAS JACEK [facility] N-TERMINAL PRO-BNP 2021-10-31 01:25:00 Martha Drake [facility] COVID-19 (ID NOW RAPID 2021-10-31 01:25:00 Martha Drake [facility] TESTING) Medical Branch LAB ONLY COVID 2021-10-31 01:25:00 Martha Drake [facility] INTERPRETATION [facility] HB ECG ROUTINE & RHYTHM 2021-10-31 01:20:03 Martha Drake [facility] STRIP [facility] URINALYSIS 2021-04-25 21:01:00 Nallely Zhao [facility] XR LUMBAR SPINE 2 VW 2021-04-25 18:41:00 Nallely Zhao [facility] XR HIPS 2 VW LEFT 2021-04-25 18:41:00 Nallely Zhao [facility] CONSENT/REFUSAL FOR 2021-04-25 15:43:06 Doctor Unassigned, [facility] DIAGNOSIS AND TREATMENT [place] [facility] CT CERVICAL SPINE WO 2020-06-26 09:35:01 Martha Drake [facility] CONTRAST [facility] CT LUMBAR SPINE WO 2020-06-26 09:35:01 Martha Drake [facility] CT THORACIC SPINE WO 2020-06-26 09:35:01 Martha Drake [facility] UNILATERAL DUPLEX SCAN OF 2020-05-24 14:53:40 [facility] Medical [facility] XR ANKLE 3+ VW LEFT 2020-05-24 13:22:26 Charanjit Heck [facility] HEPATIC FUNCTION PANEL 2020-05-24 13:13:00 Charanjit Heck [facility] ([id number]) (ALB,T.PRO,BILI Medical Branch T,BU/BC,ALT,AST,ALK PHOS) BASIC METABOLIC PANEL 2020-05-24 13:13:00 Charanjit Heck [facility] (NA, K, CL, CO2, GLUCOSE, Medica l Branch BUN, CREATININE, CA) CBC WITH DIFFERENTIAL 2020-05-24 13:13:00 Charanjit Heck [facility] PROTHROMBIN TIME / INR 2020-05-24 13:13:00 Charanjit Heck [facility] ACTIVATED PARTIAL 2020-05-24 13:13:00 Charanjit Heck [facility] NOTICE OF PRIVACY 2020-05-24 11:38:26 Doctor Unassigned, [facility] PRACTICES [place] [facility] CONSENT/REFUSAL FOR 2020-05-24 11:35:52 Doctor Unassrose mary, [facility] DIAGNOSIS AND TREATMENT [place] [facility] POCT GLUCOSE (AUTOMATED) 2020-03-23 22:32:00 Jamel Flores [facility] POCT GLUCOSE (AUTOMATED) 2020-03-23 18:07:00 Jamel Flores [facility] POCT GLUCOSE (AUTOMATED) 2020-03-23 14:57:00 Jamel Flores [facility] ECHO ROUTINE W/DOPPLER 2020-03-23 13:33:57 Jerome Tereza [facility] COLOR [facility] EKG-12 LEAD 2020-03-23 12:56:59 Jamel Flores [facility] MAGNESIUM 2020-03-23 11:15:00 Jerome Tereza [facility] TROPONIN I 2020-03-23 11:15:[address] [facility] BASIC METABOLIC PANEL 2020-03-23 11:15:00 Hannah [facility] (NA, K, CL, CO2, GLUCOSE, Medica l Branch BUN, CREATININE, CA) PROTHROMBIN TIME / INR 2020-03-23 11:15:00 Jerome [facility] ACTIVATED PARTIAL 2020-03-23 11:15:00 Jerome [facility] EKG-12 LEAD 2020-03-23 07:51:19 Jamel Flores [facility] MAGNESIUM 2020-03-23 05:55:[address] [facility] TROPONIN I 2020-03-23 05:55:[address] [facility] BASIC METABOLIC PANEL 2020-03-23 05:55:00 [facility] (NA, K, CL, CO2, GLUCOSE, Medica l Branch BUN, CREATININE, CA) LIPID PANEL ([id number])(TOTAL 2020-03-23 05:55:00 Tereza Cano [facility] CHOLESTEROL, [facility] TRIGLYCERIDES, HDL) PROTHROMBIN TIME / INR 2020-03-23 02:55:00 Sallie Eckert [facility] ACTIVATED PARTIAL 2020-03-23 02:55:00 [facility] CHEST 2 VW 2020-03-23 01:52:37 Hayder Esteban [facility] CORONAVIRUS COVID-19 2020-03-23 00:50:00 Esteban Singletary [facility] TESTING [facility] FERRITIN SERUM 2020-03-22 23:36:[address] [facility] TROPONIN I 2020-03-22 23:36:00 Esteban Singletary [facility] COMP. METABOLIC PANEL 2020-03-22 23:36:00 Esteban Singletary [facility] ([id number]) [facility] IRON PANEL 2020-03-22 23:36:[address] [facility] CBC WITH DIFFERENTIAL 2020-03-22 23:36:00 Hayder Esteban [facility] N-TERMINAL PRO-BNP 2020-03-22 23:36:00 Esteban Singletary [facility] EKG-12 LEAD 2020-03-22 23:08:53 Singletary, [facility] EKG-12 LEAD 2020-03-22 23:08:15 [facility] XR CHEST 1 VW 2020-03-21 20:42:35 Myles Harry [facility] LACTIC ACID WHOLE BLOOD 2020-03-21 20:38:00 Myles Harry [facility] LIPASE 2020-03-21 20:19:00 Myles Harry [facility] TROPONIN I 2020-03-21 20:19:00 Myles Harry [facility] COMP. METABOLIC PANEL 2020-03-21 20:19:00 Kamryn Myles B [facility] ([id number]) [facility] PROTHROMBIN TIME / INR 2020-03-21 20:19:00 Kamryn [facility] N-TERMINAL PRO-BNP 2020-03-21 20:19:00 Myles Harry [facility] CORONAVIRUS COVID-19 2020-03-21 20:19:00 Kamryn Myles [facility] EKG-12 LEAD 2020-03-21 20:11:28 Myles Harry [facility] POCT GLUCOSE (AUTOMATED) 2020-03-07 20:56:00 Julio Cesar [facility] POCT GLUCOSE (AUTOMATED) 2020-03-07 15:34:00 Julio Cesar [facility] POCT GLUCOSE (AUTOMATED) 2020-03-07 12:56:00 Julio Cesar [facility] URIC ACID 2020-03-07 10:14:00 Holland Briscoe [facility] TROPONIN I 2020-03-07 10:14:00 Lulu Harris [facility] BASIC METABOLIC PANEL 2020-03-07 10:14:00 [facility] ([facility], K, CL, CO2, GLUCOSE, Medica l Branch BUN, CREATININE, CA) CBC WITH DIFFERENTIAL 2020-03-07 10:14:00 [facility]MINAL PRO-BNP 2020-03-07 10:14:00 Lulu Harris [facility] POCT GLUCOSE (AUTOMATED) 2020-03-06 21:16:00 RamóntylerrosalioSarah [facility] POCT GLUCOSE (AUTOMATED) 2020-03-06 16:10:00 Ramóntylerrosalio [facility] POCT GLUCOSE (AUTOMATED) 2020-03-06 12:38:00 Julio Cesar [facility] TROPONIN I 2020-03-06 08:51:00 Steven Lulu [facility] BASIC METABOLIC PANEL 2020-03-06 08:51:00 [facility] (NA, K, CL, CO2, GLUCOSE, Medica l Branch BUN, CREATININE, CA) CBC WITH DIFFERENTIAL 2020-03-06 08:51:00 Julio Cesar [facility] POCT GLUCOSE (AUTOMATED) 2020-03-06 01:16:00 Edconsuelo [facility] TROPONIN I 2020-03-05 23:25:00 Edconsuelo [facility] POCT GLUCOSE (AUTOMATED) 2020-03-05 21:14:00 Julio Cesar [facility] POCT GLUCOSE (AUTOMATED) 2020-03-05 16:39:00 Edconsuelo [facility] POCT GLUCOSE (AUTOMATED) 2020-03-05 12:47:00 Julio Cesar [facility] TROPONIN I 2020-03-05 09:50:00 Julio Cesar [facility] BASIC METABOLIC PANEL 2020-03-05 09:50:00 Edconsuelo [facility] (NA, K, CL, CO2, GLUCOSE, Medica l Branch BUN, CREATININE, CA) CBC WITH DIFFERENTIAL 2020-03-05 09:50:00 [facility] 2020-03-05 00:36:54 Bobo Urrutia [facility] EKG-12 LEAD 2020-03-05 00:31:03 Bobo Urrutia [facility] CORONAVIRUS COVID-19 2020-03-05 00:03:00 Charanjit Heck [facility] TESTING [facility] XR CHEST 1 VW 2020-03-04 23:58:59 Charanjit Heck [facility] LIPASE 2020-03-04 23:29:00 Charanjit Heck [facility] TROPONIN I 2020-03-04 23:29:00 Charanjit Heck [facility] HEPATIC FUNCTION PANEL 2020-03-04 23:29:00 Charanjit Heck [facility] ([id number]) (ALB,T.PRO,BILI Medical Branch T,BU/BC,ALT,AST,ALK PHOS) BASIC METABOLIC PANEL 2020-03-04 23:29:00 Umang Charanjit [facility] (NA, K, CL, CO2, GLUCOSE, Medica l Branch BUN, CREATININE, CA) CBC WITH DIFFERENTIAL 2020-03-04 23:29:00 Umang Charanjit [facility] PROTHROMBIN TIME / INR 2020-03-04 23:29:00 Charanjit Heck [facility] ACTIVATED PARTIAL 2020-03-04 23:29:00 [facility] TH[facility] N-TERMINAL PRO-BNP 2020-03-04 23:29:00 Charanjit Heck [facility] EKG-12 LEAD 2020-03-04 23:15:42 Umang [facility] EKG-12 LEAD 2020-03-04 23:10:23 Umang Charanjit [facility] EMERGENCY DEPARTMENT 2020-03-04 05:01:00 Doctor Unassigned, [facility] DOCUMENTS [place] [facility] POCT GLUCOSE (AUTOMATED) 2020-03-02 15:52:00 Lulu Harris [facility] POCT GLUCOSE (AUTOMATED) 2020-03-02 12:39:00 Lulu Harris [facility] MAGNESIUM 2020-03-02 08:57:00 Ivory Leon [facility] BASIC METABOLIC PANEL 2020-03-02 08:57:00 Ivory Leon [facility] (NA, K, CL, CO2, GLUCOSE, Medica l Branch BUN, CREATININE, CA) N-TERMINAL PRO-BNP 2020-03-02 08:57:00 Carolyn [facility] POCT GLUCOSE (AUTOMATED) 2020-03-01 20:39:00 Lulu Harris [facility] MAGNESIUM 2020-03-01 08:43:00 Lulu Harris [facility] TROPONIN I 2020-03-01 08:43:00 Carolyn [facility] BASIC METABOLIC PANEL 2020-03-01 08:43:00 Lulu Harris [facility] (NA, K, CL, CO2, GLUCOSE, Medica l Branch BUN, CREATININE, CA) CBC WITH DIFFERENTIAL 2020-03-01 08:43:00 Steven Lulu [facility] N-TERMINAL PRO-BNP 2020-03-01 08:43:00 Carolyn [facility] VITAMIN B12, LEVEL 2020-03-01 03:49:00 Carolyn [facility] FOLATE 2020-03-01 03:49:00 Carolyn [facility] SEDIMENTATION RATE 2020-03-01 03:49:00 Carolyn [facility] POCT GLUCOSE (AUTOMATED) 2020-03-01 03:39:00 Lulu Harris [facility] PHOSPHORUS 2020-03-01 02:28:00 Lulu Harris [facility] URIC ACID 2020-03-01 02:28:00 Carolyn alek [facility] TROPONIN I 2020-03-01 02:28:00 Carolyn [facility] HEPATIC FUNCTION PANEL 2020-03-01 02:28:00 Ivory Leon [facility] ([id number]) (ALB,T.PRO,BILI Medical Branch T,BU/BC,ALT,AST,ALK PHOS) PROTHROMBIN TIME / INR 2020-03-01 02:28:00 Ivory Leon [facility] N-TERMINAL PRO-BNP 2020-03-01 02:28:00 Lulu Harris [facility] PROCALCITONIN 2020-03-01 02:28:00 Carolyn alek [facility] EKG-12 LEAD 2020-03-01 01:54:29 Carolyn [facility] EKG-12 LEAD 2020-02-29 23:16:21 Bobo Urrutia [facility] XR CHEST 1 VW COVID 2020-02-29 23:14:25 Bobo Urr[facility]ia [facility] EKG-12 LEAD 2020-02-29 23:13:50 Bobo Urrutia [facility] LACTIC ACID WHOLE BLOOD 2020-02-29 22:21:00 Bobo Urrutia [facility] CORONAVIRUS COVID-19 2020-02-29 22:20:00 Bobo Urrutia [facility] TESTING [facility] CREATINE KINASE 2020-02-29 22:14:00 Carolyn [facility] URIC ACID 2020-02-29 22:14:00 Carolyn [facility] LIPASE 2020-02-29 22:14:00 Bobo Urrutia [facility] MAGNESIUM 2020-02-29 22:14:00 Carolyn [facility] TROPONIN I 2020-02-29 22:14:00 Bobo Urrutia [facility] THYROID STIMULATING 2020-02-29 22:14:00 Carolyn [facility] HORMONE [facility] BASIC METABOLIC PANEL 2020-02-29 22:14:00 Bobo Urrutia [facility] (NA, K, CL, CO2, GLUCOSE, Medica l Branch BUN, CREATININE, CA) CBC WITH DIFFERENTIAL 2020-02-29 22:14:00 Bobo Urrutia [facility] GLYCOSYLATED HEMOGLOBIN 2020-02-29 22:14:00 Carolyn [facility] (A1C) [facility] N-TERMINAL PRO-BNP 2020-02-29 22:14:00 Ivory Leon [facility] EKG-12 LEAD 2020-02-29 21:59:12 Bobo Urrutia [facility] EKG-12 LEAD 2020-02-29 21:48:49 Bobo Urrutia [facility] EMERGENCY DEPARTMENT 2020-02-29 05:01:00 Doctor Unassigned, [facility] DOCUMENTS [place] [facility] POCT GLUCOSE (AUTOMATED) 2020-01-17 18:15:00 Julio Cesar [facility] TROPONIN I 2020-01-17 16:31:00 Julio Cesar [facility] ACTIVATED PARTIAL 2020-01-17 16:31:00 Ivory Leon [facility] POCT GLUCOSE (AUTOMATED) 2020-01-17 11:56:00 Julio Cesar [facility] TROPONIN I 2020-01-17 09:52:00 Julio Cesar [facility] BASIC METABOLIC PANEL 2020-01-17 09:52:00 [facility] (NA, K, CL, CO2, GLUCOSE, Medica l Branch BUN, CREATININE, CA) CBC WITH DIFFERENTIAL 2020-01-17 09:52:00 [facility] 2020-01-17 09:52:00 [facility] ([facility]OMATED) 2020-01-16 23:59:00 Julio Cesar [facility] EKG-12 LEAD 2020-01-16 22:15:50 Julio Cesar [facility] TROPONIN I 2020-01-16 20:04:00 Julio Cesar [facility] ACTIVATED PARTIAL 2020-01-16 20:04:00 Ayo Scruggs [facility] POCT GLUCOSE (AUTOMATED) 2020-01-16 17:05:00 Julio Cesar [facility] POCT GLUCOSE (AUTOMATED) 2020-01-16 13:38:00 Julio Cesar [facility] TROPONIN I 2020-01-16 11:11:00 uJlio Cesar [facility] LIPID PANEL ([id number])(TOTAL 2020-01-16 11:11:00 Julio Cesar [facility] CHOLESTEROL, Medical Branch TRIGLYCERIDES, HDL) ACTIVATED PARTIAL 2020-01-16 11:11:00 [facility] 2020-01-16 05:48:18 Charanjit Heck [facility] XR CHEST 1 VW 2020-01-16 04:46:44 Charanjit Heck [facility] TROPONIN I 2020-01-16 04:38:00 Charanjit Heck [facility] HEPATIC FUNCTION PANEL 2020-01-16 04:38:00 Charanjit Heck [facility] ([id number]) (ALB,T.PRO,BILI Medical Branch T,BU/BC,ALT,AST,ALK PHOS) BASIC METABOLIC PANEL 2020-01-16 04:38:00 UmangKindred HospitalCharanjit [facility] (NA, K, CL, CO2, GLUCOSE, Medica l Branch BUN, CREATININE, CA) CBC WITH DIFFERENTIAL 2020-01-16 04:38:00 UmangKindred HospitalCharanjit [facility] GLYCOSYLATED HEMOGLOBIN 2020-01-16 04:38:00 [facility] PROTHROMBIN TIME / INR 2020-01-16 04:38:00 Charanjit Heck [facility] ACTIVATED PARTIAL 2020-01-16 04:38:00 [facility] 2020-01-16 04:38:00 Charanjit Heck [facility] EKG-12 LEAD 2020-01-16 04:37:48 Umang Charanjit [facility] EKG-12 LEAD 2020-01-16 04:35:35 Umang Charanjit [facility] AUTHORIZATION FOR RELEASE 2019-07-12 05:01:00 Doctor Unassigned, [facility] [place] [facility] Encounters Start End Encounter Admission Attending Care Care Encounter Source Date/Time Date/Time Type Type Clinicians Facility Department ID 2021-12-16 Inpatient SERA Villavicencio OUTD [id number] [facility] 11:30:00 [facility] 2021-12-16 Outpatient STLMLC [facility]MLC [id number] 09:19:01 [facility] 2021-12-11 Outpatient Lester [facility] [id number] 14:38:21 Anneliese Peter [facility] 2021-12-11 Outpatient Lester [facility]TON[facility] [id number] 11:50:18 Anneliese Peter [facility] 2021-09-16 Emergency [facility] [id number] Univers 00:23:34 ity of [facility] 2021-09-13 Emergency [facility] [id number] Univers 11:42:35 ity of [facility] 2021-09-13 Emergency [facility] [id number] Univers 05:40:48 ity of [facility] 2021-12-17 2021-12-17 ambulatory [facility] [id number] [facility]00 Peter goel [facility] 2021-11-19 2021-11-19 Orders Doctor ROBERT [id number] Univers 00:00:00 00:00:00 Only Unassigned, ADRIAN [id number] ity of [place] [facility] 4.2.7.2.686 [place] [phone] [facility] 009 Branch 2021-11-04 2021-11-04 Transition SHAREE Maria [id number] Univers 00:00:00 00:00:00 of Care Supa GREWAL [id number] ity [place] [id number] [facility] 403 Branch 2021-10-30 2021-11-02 Inpatient X ALYSSA [facility] ZEFERINO [id number] Univers 19:14:00 18:15:00 AIDA ity of [facility] 2021-10-30 2021-11-02 [facility] Martha Drake [place] 1.2.840. 114 [id number] Univers 19:14:00 18:15:00 Encounter Aida Shah [id number] ity of [place] 4.2.7.2.686 [facility] [phone] [facility] 081 Branch 2021-05-17 2021-05-17 Letter ROBERT Monae [id number] Univers 00:00:00 00:00:00 (Out) Patient ADRIAN [id number] it y of [facility] [place] [id number] [facility] 019 Branch 2021-04-25 2021-04-25 Emergency Cece, TRAUMA [id number] Univers 10:43:00 17:38:00 [facility] [id number] i ty of [facility]3] 4.2.7.2.686 [facility] [id number] [facility] 014 Branch 2020-06-26 2020-06-26 [facility] [id number] 03:50:00 06:45:00 Martha Cortez [id number] [place] 4.2.7.2.686 [place] [id number] [facility] 2020-06-26 2020-06-26 [facility] [id number] Univers 03:50:00 06:45:00 Martha Cortez [id number] ity of [place] 4.2.7.2.686 [facility] [id number] [address] 2020-05-24 2020-05-24 [facility] [id number] 06:40:47 10:54:00 Charanjitkiara [place] 350.1.13.10 [place] [address] [place] [address] [phone] [facility] 2020-05-24 2020-05-24 Emergency [facility] [id number] Univers 06:40:47 10:54:00 Charanjit Dyer 350.1.13.10 i ty of [place] 4.2.7.2.[address] [place] [address] [id number] [place] [address] Branch 2020-03-29 2020-03-29 Letter Jamel Flores 1.2.840.114 [id number] Univers 00:00:00 00:00:00 (Out) T [place] 350.1.13.10 it y of Hospital 4.2.7.2.686 [place] [phone] [place] 864039 [place] 2020-03-29 2020-03-29 Letter CharismaLuanazra Gambino 1.2.840.114 [id number] 00:00:00 00:00:00 (Out) T [place] 350.1.13.10 [facility] 4.2.7.2.686 [id number] [facility] 2020-03-26 2020-03-26 Transition Ariel Belindakvng 1.2.840.114 [id number] Univers 00:00:00 00:00:00 of Care Sherrell Grewal 350.1.13.10 it y [place] [id number] [facility] [address] [place] 2020-03-26 2020-03-26 Transition Ariel Belindakvng 1.2.840.114 [id number] 00:00:00 00:00:00 of Care Sherrell Grewal 350.1.13.10 [place] 4.2.7.2.686 [id number] [facility] 2020-03-22 2020-03-23 Emergency Sallie Eckert 1.2.840. 114 [id number] Univers 18:02:47 21:55:00 Jamel Flores 350.1.13.10 ity of [facility] 4.2.7.2.686 [place] [id number] [address] 2020-03-22 2020-03-23 Outpatient X JAMEL FLORES [facility] [id number] Univers 18:02:47 21:55:00 ity of [facility] 2020-03-21 2020-03-21 Emergency Kamryn [facility] 1.2.840.114 [id number] Univers 15:02:08 17:16:00 Myles Cort[place] 350.1.13.10 [place] [phone] [address] 2020-03-21 2020-03-21 Emergency X KAMRYN [facility] [id number] Univers 15:02:08 17:16:00 MYLES carolyn [facility] 2020-03-13 2020-03-13 Outpatient Raju_P MMG MMG [id number] [place] 05:24:00 05:24:00 0428 [facility] 2020-03-08 2020-03-08 Transition Sharee Cool 1.2.840.114 [id number] Univers 00:00:00 00:00:00 of Care Prema Grewal 350.1.13.10 [place] [id number] [address] 2020-03-04 2020-03-07 [facility] Charanjit Heck [facility] 1.2.840.1 [id number] Univers 18:01:05 18:00:00 Encounter RamónCherelle corderoazra [place] 350.1.13.10 [place] [phone] [address] 2020-03-04 2020-03-07 Inpatient X JULIO CESAR [facility] ZEF[facility]INO [id number] Univers 18:01:05 18:00:00 SARAH leon [facility] 2020-03-03 2020-03-03 Transition Sharee Silva 1.2.840.114 [id number] Univers 00:00:00 00:00:00 of Care Isatu Grewal 350.1.13.10 it [id number] [address] 2020-02-29 2020-03-02 [facility] Bobo Urrutia [facility] 1.2.840.11 [id number] Univers 16:53:09 12:18:00 Encounter Lulu Harris 350.1.13.10 ity of [place] [phone] [address] 2020-02-29 2020-03-02 Inpatient X STEVEN [facility] ZEF[facility]INO [id number] Univers 16:53:09 12:18:00 LULU leon [facility] 2020-02-15 2020-02-15 Outpatient Yanick BETANCOURT [facility] [id number] Univers 11:30:00 11:30:00 ROSEMARY leon [facility] 2020-02-15 2020-02-15 Telemedici Chava [facility] 1.2.840.114 [id number] Univers 08:13:42 08:43:42 ne Visit Rosemary Cortez 350.1.13.10 [place] [phone] Dc dical nal 220 [facility] 2020-01-18 2020-01-18 Transition Sharee Harvey 1.2.840.114 [id number] Univers 00:00:00 00:00:00 of Care Ana M Hahny 350.1.13.10 it [place] [id number] [facility] 403 Branch 2020-01-15 2020-01-17 [facility] Umang Charanjit [facility] 1.2.840.1 [id number] Univers 22:33:37 16:58:00 Encounter Sarah Adorno 350.1.13.10 [place] [id number] [facility] 081 Branch 2020-01-15 2020-01-17 Outpatient X JULIO CESAR [facility] [id number] Univers 22:33:37 16:58:00 SARAH leon [facility] 2019-10-07 2019-10-07 [facility] [id number] 10:48:00 10:48:00 t [facility] 2019-10-05 2019-10-05 [facility] [id number] 16:06:00 16:06:00 [facility] 2019-07-27 2019-07-27 Refill Chava [facility] 1.2.840.114 [id number] Univers 00:00:00 00:00:00 Rosemary Cortez 350.1.13.10 [place] [phone] Dc dical nal 220 [facility] 2019-07-12 2019-07-12 [facility] [id number] 16:24:00 16:24:00 [facility] 2019-07-12 2019-07-12 Orders Doctor ROBERT 1.2.840.114 [id number] Univers 00:00:00 00:00:00 Only Unassigned, ADRIAN 350.1.13.10 ity of [facility] 4.2.7.2.686 [facility] as [phone] [facility] [address] [place] 2019-07-06 2019-07-06 [facility] [id number] 14:00:00 14:00:00 [facility] ent [facility] Results Test Description Test Time Test Comments Results Result Comments Source POCT GLUCOSE (AUTOMATED) 2021-11-02 22:57:12 Test Item Value Reference Range Interpretation Comme nts POCT GLU (test code = 7021068388) 224 mg/dL 70-110 H Lab Interpretation (test code = 41984-6) Abnormal [facility] LE[facility] ROUTINE [id number] 22:37:57 Test Item Value Reference Range Interpretation Comments Lab Interpretation (test code = Abnormal 84348-1) [facility])2021-11-02 17:43:02 Test Item Value Reference Range Interpretation Comments POCT GLU (test code = 3269423883) 264 mg/dL 70-110 H Lab Interpretation (test code = Abnormal 28779-2) [facility] [id number] 15:07:47 Test Item Value Reference Interpretation Comments Range TROPONIN I (test 0.064 ng/mL See_Comment H [Automated code = 2052530731) message] The system which generated this result [...] biotin. Lab Interpretation Abnormal (test code = 02441-9) [facility] [id number] 15:04:26 Test Item Value Reference Range Interpretation Comments NT-proBNP (test code 800 pg/mL See_Comment H [Autom ated = 4214247656) message] The system which generated this result transmitted reference range : <=450. The reference range was not used to interpret this result as normal/abnormal . ALYSSA (test code = ALYSSA) Biotin has been reported to cause a negative bias, interpret results relative to patient's use of biotin. Lab Interpretation Abnormal (test code = 84346-1) [facility]2021-11-02 13:36:38 Test Item Value Reference Range Interpretation Comments POCT GLU (test code = 9937929466) 185 mg/dL 70-110 H Lab Interpretation (test code = Abnormal 78086-7) [facility]OLIC PAN[facility] (NA, K, CL, CO2, GLUCOSE, BUN, CREATININE, CA)2021-11-02 10:26:43 Test Item Value Reference Range Interpretation Comments NA (test code = 136 mmol/L 135-145 9596093063) K (test code = 4.0 mmol/L 3.5-5.0 1263252983) CL (test code = 99 mmol/L 98-108 3762754150) CO2 TOTAL (test code = 27 mmol/L 23-31 2771843026) AGAP (test code = 2-16 0215714463) BUN (test code = 30 mg/dL 7-23 H 5471227233) GLUCOSE (test code = 165 mg/dL 70-110 H 9918752772) CREATININE (test code = 1.42 mg/dL 0.60-1.25 H 6322471225) CALCIUM (test code = 9.5 mg/dL 8.6-10.6 5752638528) eGFR (test code = mL/min/1.73m2 1132264022) ALYSSA (test code = ALYSSA) Association of [...] tests). Lab Interpretation Abnormal (test code = 75231-6) [facility] WITH [id number] 10:01:58 Test Item Value Reference Range Interpretation Comments WBC (test code = See_Comment [Automated 6390-2) message] The sy stem which generated this result transmitted reference range : 4.20 - 10.70 10*3/?L. The reference range was not used to interpret this result as normal/abnormal . RBC (test code = See_Comment L [Automated 813-0) message] The sy stem which generated this result transmitted reference range : 4.26 - 5.52 10*6/?L. The reference range was not used to interpret this result as normal/abnormal . HGB (test code = 12.6 g/dL 12.2-16.4 308-7) HCT (test code = 36.2 % 38.4-49.3 L 4544-3) MCV (test code = 93.3 fL 81.7-95.6 787-2) MCH (test code = 32.5 pg 26.1-32.7 785-6) MCHC (test code = 34.8 g/dL 31.2-35.0 786-4) RDW-SD (test code = 39.8 fL 38.5-51.6 00056-3) RDW-CV (test code = 11.5 % 12.1-15.4 L 788-0) PLT (test code = See_Comment [Automated 777-3) message] The sy stem which generated this result transmitted reference range : 150 - 328 10*3/ ?L. The reference r corey was not used to interpret this result as normal/abnormal . MPV (test code = 10.5 fL 9.8-13.0 89346-3) NRBC/100 WBC (test See_Comment [Automat ed code = 6044958801) message] The system which generated this result transmitted reference range : 0.0 - 10.0 /100 WBCs. The refer ence range was not u sed to interpret th is result as normal/abnormal . NRBC x10^3 (test code <0.01 See_Comment [Auto mated = 7408104112) message] The s ystem which generated this result transmitted reference range : 10*3/?L. The reference range was not used to interpret this result as normal/abnormal . GRAN MAT (NEUT) % 59.3 % (test code = 770-8) IMM GRAN % (test code 0.30 % = 2704721536) LYMPH % (test code = 25.0 % 736-9) MONO % (test code = 10.7 % 5905-5) EOS % (test code = 4.1 % 713-8) BASO % (test code = 0.6 % 706-2) GRAN MAT x10^3(ANC) 4.19 10*3/uL 1.99-6.95 (test code = 5958712951) IMM GRAN x10^3 (test <0.03 0.00-0.06 code = [id number]) LYMPH x10^3 (test code 1.77 10*3/uL 1.09-3.23 = 731-0) MONO x10^3 (test code 0.76 10*3/uL 0.36-1.02 = 742-7) EOS x10^3 (test code = 0.29 10*3/uL 0.06-0.53 711-2) BASO x10^3 (test code 0.04 10*3/uL 0.01-0.09 = 704-7) Lab Interpretation Abnormal (test code = 20746-9) [facility] GLUCOSE (AUTOMATED)2021-11-02 01:29:56 Test Item Value Reference Range Interpretation Comments POCT GLU (test code = 8917999971) 167 mg/dL 70-110 H Lab Interpretation (test code = Abnormal 61268-4) [facility] GLUCOSE (AUTOMATED)2021-11-01 17:40:19 Test Item Value Reference Range Interpretation Comments POCT GLU (test code = 2936540014) 193 mg/dL 70-110 H Lab Interpretation (test code = Abnormal 24593-5) [facility] GLUCOSE (AUTOMATED)2021-11-01 13:44:28 Test Item Value Reference Range Interpretation Comments POCT GLU (test code = 1096100727) 200 mg/dL 70-110 H Lab Interpretation (test code = Abnormal 60328-1) [facility] GLUCOSE (AUTOMATED)2021-11-01 01:38:43 Test Item Value Reference Range Interpretation Comments POCT GLU (test code = 4961469805) 177 mg/dL 70-110 H Lab Interpretation (test code = Abnormal 43389-8) [facility] GLUCOSE (AUTOMATED)2021-10-31 22:39:43 Test Item Value Reference Range Interpretation Comments POCT GLU (test code = 0035378987) 174 mg/dL 70-110 H Lab Interpretation (test code = Abnormal 78069-2) [facility] GLUCOSE (AUTOMATED)2021-10-31 17:40:22 Test Item Value Reference Range Interpretation Comments POCT GLU (test code = 6083561040) 224 mg/dL 70-110 H Lab Interpretation (test code = Abnormal 62795-2) [facility] [id number] 17:14:58 Test Item Value Reference Interpretation Comments Range TROPONIN I (test 0.080 ng/mL See_Comment H [Automated code = 2805524405) message] The system which generated this result [...] biotin. Lab Interpretation Abnormal (test code = 64425-7) [facility] ResourcesN-[facility]MINAL [id number] 15:14:03 Test Item Value Reference Range Interpretation Comments NT-proBNP (test code 474 pg/mL See_Comment H [Autom ated = 7131926336) message] The system which generated this result transmitted reference range : <=450. The reference range was not used to interpret this result as normal/abnormal . ALYSSA (test code = ALYSSA) Biotin has been reported to cause a negative bias, interpret results relative to patient's use of biotin. Lab Interpretation Abnormal (test code = 68380-5) [facility] ResourcesLIPID PANEL ([id number])(TOTAL CHOLESTEROL, TRIGLYCERIDES, HDL)2021-10-31 15:05:19 Test Item Value Reference Range Interpretation Comments CHOL (test code = 101 mg/dL 120-200 L 9602192359) HDL (test code = 36 mg/dL >40 L 1778549796) HDLC RATIO (test code = See_Comment [Au tomated message] 0256317087) The system [employer] generated this result transmit diamante reference range : <=5.0. The refe rence range was not u sed to interpret th is result as normal/abnormal . TRIG (test code = 143 mg/dL 30-170 1166352242) LDL CHOL (test code = 36 mg/dL See_Comment [Auto mated message] 95742-1) The system whic h generated this result transmit diamante reference range : <=160. The refe rence range was not u sed to interpret th is result as normal/abnormal . VLDL (test code = 29 mg/dL 5-60 6810888151) Lab Interpretation (test Abnormal code = 89442-1) [facility]2021-10-31 13:44:00 Test Item Value Reference Range Interpretation Comments POCT GLU (test code = 3757224045) 150 mg/dL 70-110 H Lab Interpretation (test code = Abnormal 30704-6) [facility] with [id number] 11:13:14 Test Item Value Reference Range Interpretation [...] RDW-SD (test code = 39.9 fL 38.5-51.6 25513-5) RDW-CV (test code = 11.8 % 12.1-15.4 L 788-0) PLT (test code = See_Comment [Automated 777-3) message] The sy stem which generated this result transmitted reference range : 150 - 328 10*3/ ?L. The reference r corey was not used to interpret this result as normal/abnormal . MPV (test code = 11.0 fL 9.8-13.0 52262-8) NRBC/100 WBC (test See_Comment [Automat ed code = 5353061127) message] The system which generated this result transmitted reference range : 0.0 - 10.0 /100 WBCs. The refer ence range was not u sed to interpret th is result as normal/abnormal . NRBC x10^3 (test code <0.01 See_Comment [Auto mated = 1586550775) message] The s ystem which generated this result transmitted reference range : 10*3/?L. The reference range was not used to interpret this result as normal/abnormal . GRAN MAT (NEUT) % 64.3 % (test code = 770-8) IMM GRAN % (test code 0.30 % = 9825869132) LYMPH % (test code = 21.7 % 736-9) MONO % (test code = 10.0 % 5905-5) EOS % (test code = 3.1 % 713-8) BASO % (test code = 0.6 % 706-2) GRAN MAT x10^3(ANC) 4.35 10*3/uL 1.99-6.95 (test code = 5572604111) IMM GRAN x10^3 (test <0.03 0.00-0.06 code = 6704007703) LYMPH x10^3 (test code 1.47 10*3/uL 1.09-3.23 = 731-0) MONO x10^3 (test code 0.68 10*3/uL 0.36-1.02 = 742-7) EOS x10^3 (test code = 0.21 10*3/uL 0.06-0.53 711-2) BASO x10^3 (test code 0.04 10*3/uL 0.01-0.09 = 704-7) Lab Interpretation Abnormal (test code = 85352-6) [facility] ResourcesWENDY [id number] 11:09:53 Test Item Value Reference Interpretation Comments Range TROPONIN I (test 0.101 ng/mL See_Comment H [Automated code = 8006805905) message] The system which generated this result [...] biotin. Lab Interpretation Abnormal (test code = 25964-5) [facility] Metabolic Panel (NA, K, CL, CO2, GLUCOSE, BUN, CREATININE, CA)2021-10-31 10:59:31 Test Item Value Reference Range Interpretation Comments NA (test code = 139 mmol/L 135-145 8182335129) K (test code = 4.1 mmol/L 3.5-5.0 4582873059) CL (test code = 103 mmol/L 98-108 0236544628) CO2 TOTAL (test code = 28 mmol/L 23-31 9483789484) AGAP (test code = 2-16 2191674869) BUN (test code = 43 mg/dL 7-23 H 6866931128) GLUCOSE (test code = 165 mg/dL 70-110 H 7152923478) CREATININE (test code = 1.68 mg/dL 0.60-1.25 H 7753192093) CALCIUM (test code = 9.6 mg/dL 8.6-10.6 8878453657) eGFR (test code = mL/min/1.73m2 6606068652) ALYSSA (test code = ALYSSA) Association of [...] tests). Lab Interpretation Abnormal (test code = 58211-8) [facility] ResourcesGlycosylated Hemoglobin (A1C)2021-10-31 09:13:40 Test Item Value Reference Range Interpretation Comments HGB A1C (test code = 6.8 % 4.0-5.7 H 4548-4) ALYSSA (test code = ALYSSA) Reference RangesNormal: <5.7%Prediabetes: 5.7 - 6.4%Diabetes: > 6.5% Lab Interpretation (test Abnormal code = 47415-6) [facility] ResourcesTROPONIN [id number] 06:48:18 Test Item Value Reference Interpretation Comments Range TROPONIN I (test 0.082 ng/mL See_Comment H [Automated code = 2262316449) message] The system which generated this result [...] biotin. Lab Interpretation Abnormal (test code = 70828-9) [facility] ResourcesTR[facility]ONIN [id number] 02:09:48 Test Item Value Reference Interpretation Comments Range TROPONIN I (test 0.067 ng/mL See_Comment H [Automated code = 9631156679) message] The system which generated this result [...] biotin. Lab Interpretation Abnormal (test code = 76520-3) [facility] ResourcesN-TERMINAL [id number] 02:06:31 Test Item Value Reference Range Interpretation Comments NT-proBNP (test code 318 pg/mL See_Comment [Autom ated = 6339872943) message] The system which generated this result transmitted reference range : <=450. The reference range was not used to interpret this result as normal/abnormal . ALYSSA (test code = ALYSSA) Biotin has been reported to cause a negative bias, interpret results relative to patient's use of biotin. Lab Interpretation Normal (test code = 11374-1) [facility] ResourcesCOMP. METABOLIC PANEL (22731)2021-10-31 01:58:28 Test Item Value Reference Range Interpretation Comments NA (test code = 137 mmol/L 135-145 6312676710) K (test code = 4.1 mmol/L 3.5-5.0 7076290936) CL (test code = 101 mmol/L 98-108 0227790304) CO2 TOTAL (test code = 26 mmol/L 23-31 1026514415) AGAP (test code = 2-16 0994005469) BUN (test code = 46 mg/dL 7-23 H 6380593027) GLUCOSE (test code = 213 mg/dL 70-110 H 5607452772) CREATININE (test code = 1.96 mg/dL 0.60-1.25 H 5535028880) TOTAL BILI (test code = 0.9 mg/dL 0.1-1.8 3294440206) CALCIUM (test code = 9.7 mg/dL 8.6-10.6 7208180114) T PROTEIN (test code = 7.0 g/dL 6.3-8.2 6412991674) ALBUMIN (test code = 4.3 g/dL 3.5-5.0 5326442599) ALK PHOS (test code = 58 U/L 34-122 4458875177) ALTv (test code = 20 U/L 5-50 1742-6) AST(SGOT) (test code = 27 U/L 13-40 1736014409) eGFR (test code = mL/min/1.73m2 1065159790) ALYSSA (test code = ALYSSA) Association of [...] tests). Lab Interpretation Abnormal (test code = 97522-9) [facility] ResourcesLIPASE, [id number] 01:57:48 Test Item Value Reference Range Interpretation Comments LIPASE (test code = 4178524264) 330 U/L 0-220 H Lab Interpretation (test code = Abnormal 37748-1) [facility] ResourcesaPTT2021-12-16 01:55:04 Test Item Value Reference Range Interpretation Comments APTT Patient (test See_Comment [Automat ed code = 3173-2) message] The system which generated this result transmitted reference range : 23 - 38 Seconds . The reference range was not used to interpr et this result as normal/abnormal . ALYSSA (test code = ALYSSA) The [facility] patient population mean normal value for aPTT is 30 seconds. Lab Interpretation Normal (test code = 39039-1) [facility] ResourcesPROTHROMBIN TIME / [id number] 01:53:08 Test Item Value Reference Range Interpretation [...] tions. Lab Interpretation (test Normal code = 76074-0) [facility] ResourcesCBC WITH [id number] 01:45:44 Test Item Value Reference Range Interpretation Comments WBC (test code = See_Comment [Automated 7490-2) message] The sy stem which generated this result transmitted reference range : 4.20 - 10.70 10*3/?L. The reference range was not used to interpret this result as normal/abnormal . RBC (test code = See_Comment L [Automated 559-8) message] The sy stem which generated this [...] RDW-SD (test code = 39.1 fL 38.5-51.6 77664-4) RDW-CV (test code = 11.6 % 12.1-15.4 L 788-0) PLT (test code = See_Comment [Automated 777-3) message] The sy stem which generated this result transmitted reference range : 150 - 328 10*3/ ?L. The reference r corey was not used to interpret this result as normal/abnormal . MPV (test code = 10.4 fL 9.8-13.0 38714-1) NRBC/100 WBC (test See_Comment [Automat ed code = 7596204200) message] The system which generated this result transmitted reference range : 0.0 - 10.0 /100 WBCs. The refer ence range was not u sed to interpret th is result as normal/abnormal . NRBC x10^3 (test code <0.01 See_Comment [Auto mated = 9560802800) message] The s ystem which generated this result transmitted reference range : 10*3/?L. The reference range was not used to interpret this result as normal/abnormal . GRAN MAT (NEUT) % 62.1 % (test code = 770-8) IMM GRAN % (test code 0.30 % = 3597626835) LYMPH % (test code = 23.4 % 736-9) MONO % (test code = 10.8 % 5905-5) EOS % (test code = 2.9 % 713-8) BASO % (test code = 0.5 % 706-2) GRAN MAT x10^3(ANC) 4.14 10*3/uL 1.99-6.95 (test code = 0519119457) IMM GRAN x10^3 (test <0.03 0.00-0.06 code = 4623725234) LYMPH x10^3 (test code 1.56 10*3/uL 1.09-3.23 = 731-0) MONO x10^3 (test code 0.72 10*3/uL 0.36-1.02 = 742-7) EOS x10^3 (test code = 0.19 10*3/uL 0.06-0.53 711-2) BASO x10^3 (test code 0.03 10*3/uL 0.01-0.09 = 704-7) Lab Interpretation Abnormal (test code = 69813-0) [facility] ResourcesURINALYSIS2021-06-10 21:15:48 Test Item Value Reference Range Interpretation Comments APPEARANCE (test code = Clear Clear 7950849282) COLOR (test code = Yellow Yellow 0987638759) PH (test code = 4.8-8.0 9427110309) SP GRAVITY (test code = 1.003-1.030 7900439740) GLU U QUAL (test code = 50 mg/dL Normal A 5595752192) BLOOD (test code = Negative Negative INTERFERE NCE FROM 8257992700) ASCORBIC ACID M AY CAUSE FALSE NEG ATIVE RESULT KETONES (test code = Negative Negative 8176585451) PROTEIN (test code = Negative Negative 2887-8) UROBILIN (test code = Normal Normal 5131132358) BILIRUBIN (test code = Negative Negative 5269031049) NITRITE (test code = Negative Negative 4295133066) LEUK JESS (test code = Negative Negative 4169304343) RBC/HPF (test code = See_Comment [Autom ated message] 4972224460) The system [employer] generated this result transmitted ref erence range: 0 - 3 HP F. The reference range was not used to int erpret this result as normal/abnormal . WBC/HPF (test code = See_Comment [Autom ated message] 4005172046) The system [employer] generated this result transmitted ref erence range: 0 - 5 HP F. The reference range was not used to int erpret this result as normal/abnormal . BACTERIA (test code = Negative Negative 2955108347) SQ EPITH (test code = <1 See_Comment [Auto mated message] 4136772431) The system [employer] generated this result transmitted ref erence range: <=2 HPF. The reference range was not used to int erpret this result as normal/abnormal . HYAL CAST (test code = See_Comment [Aut omated message] 9660493592) The system [employer] generated this result transmitted ref erence range: <=2 LPF. The reference range was not used to int erpret this result as normal/abnormal . Lab Interpretation (test Abnormal code = 95962-3) [facility] ResourcesXR LUMBAR SPINE 2 [id number] 20:30:53 Impression: Postoperative changes. Degenerative changes. No [...] acute bony abnormality identified.End of Report.RL[facility]XR H[facility] 2 VW [id number] 20:24:52Impression: Postoperative changes. Degenerative changes. No acute [...] clinicalconcern MRI is available.End of Report.RL: [facility] Metabolic [facility] (NA, K, CL, CO2, GLUCOSE, BUN, CREATININE, CA)2020-05-24 14:15:00 Test Item Value Reference Range Interpretation Comments NA (test code = 139 mmol/L 135-145 6936667939) K (test code = 4.1 mmol/L 3.5-5 3252330582) CL (test code = 104 mmol/L 98-108 2790556843) CO2 TOTAL (test code = 26 mmol/L 23-31 6028500010) AGAP (test code = 2-16 2074084728) BUN (test code = 22 mg/dL 7-23 7510155798) GLUCOSE (test code = 203 mg/dL 70-110 H 6281192017) CREATININE (test code = 1.40 mg/dL 0.6-1.25 H 0217777837) CALCIUM (test code = 9.1 mg/dL 8.6-10.6 2102003111) eGFR Calculation mL/min/1.73m2 (Non-) (test code = 6043644667) eGFR Calculation mL/min/1.73m2 () (test code = 9136962569) ALYSSA (test code = ALYSSA) Association of [...] tests). Lab Interpretation Abnormal (test code = 21870-9) [facility] ResourcesHepatic Function Panel (ALB, T.PRO, BILI T, BU/BC, ALT, AST, ALK PHOS)2020-05-24 13:54:00 Test Item Value Reference Range Interpretation Comments TOTAL BILI (test code = 6688681075) 0.9 mg/dL 0.1-1.1 BILI UNCON (test code = 2853532067) 1.0 mg/dL 0.1-1.1 BILI CONJ (test code = 8341838161) 0.0 mg/dL 0-0.3 T PROTEIN (test code = 7931796874) 7.0 g/dL 6.3-8.2 ALBUMIN (test code = 3010716918) 4.2 g/dL 3.5-5 ALK PHOS (test code = 0812841704) 49 U/L 34-122 ALTv (test code = 1742-6) 17 U/L 5-50 AST(SGOT) (test code = 6649353487) 25 U/L 13-40 Lab Interpretation (test code = Normal 96079-4) [facility] ResourcesaPTT2020-07-09 13:32:00 Test Item Value Reference Range Interpretation Comments APTT Patient (test See_Comment [Automat ed code = 3173-2) message] The system which generated this result transmitted reference range : 23 - 38 Seconds . The reference range was not used to interpr et this result as normal/abnormal . ALYSSA (test code = ALYSSA) The [facility] patient population mean normal value for aPTT is 30 seconds. Lab Interpretation Normal (test code = 21702-9) [facility] ResourcesProthrombin Time (PT) / [id number] 13:30:00 Test Item Value Reference Range Interpretation [...] tions. Lab Interpretation (test Normal code = 92227-7) [facility] WITH [id number] 13:27:00 Test Item Value Reference Range Interpretation [...] RDW-SD (test code = 42.6 fL 38.5-51.6 82880-9) RDW-CV (test code = 12.3 % 12.1-15.4 788-0) PLT (test code = See_Comment [Automated 777-3) message] The sy stem which generated this result transmitted reference range : 150 - 328 10*3/ ?L. The reference r corey was not used to interpret this result as normal/abnormal . MPV (test code = 9.9 fL 9.8-13 08443-9) NRBC/100 WBC (test See_Comment [Automat ed code = 8551113613) message] The system which generated this result transmitted reference range : 0.0 - 10.0 /100 WBCs. The refer ence range was not u sed to interpret th is result as normal/abnormal . NRBC x10^3 (test code <0.01 See_Comment [Auto mated = 9617444007) message] The s ystem which generated this result transmitted reference range : 10*3/?L. The reference range was not used to interpret this result as normal/abnormal . GRAN MAT (NEUT) % 55.1 % (test code = 770-8) IMM GRAN % (test code 0.20 % = 8509104419) LYMPH % (test code = 28.8 % 736-9) MONO % (test code = 11.3 % 5905-5) EOS % (test code = 3.5 % 713-8) BASO % (test code = 1.1 % 706-2) GRAN MAT x10^3(ANC) 3.11 10*3/uL 1.99-6.95 (test code = 1588835273) IMM GRAN x10^3 (test <0.03 0-0.06 code = 8578999665) LYMPH x10^3 (test code 1.63 10*3/uL 1.09-3.23 = 731-0) MONO x10^3 (test code 0.64 10*3/uL 0.36-1.02 = 742-7) EOS x10^3 (test code = 0.20 10*3/uL 0.06-0.53 711-2) BASO x10^3 (test code 0.06 10*3/uL 0.01-0.09 = 704-7) Lab Interpretation Abnormal (test code = 81651-1) [facility] ResourcesXR ANKLE 3+ VW [id number] 13:25:58HISTORY: ?Pain. FINDINGS: AP, lateral, oblique views [...] No acute fracture or dislocation in left ankle.[facility] GLUCOSE (AUTOMATED)2020-03-23 22:34:00 Test Item Value Reference Range Interpretation Comments POCT GLU (test code = 2380793169) 173 mg/dL 70-110 H Lab Interpretation (test code = Abnormal 53364-4) [facility] GLUCOSE (AUTOMATED)2020-03-23 22:34:00 Test Item Value Reference Range Interpretation Comments POCT GLU (test code = 6364743909) 173 mg/dL 70-110 H Lab Interpretation (test code = Abnormal 70291-1) [facility] GLUCOSE (AUTOMATED)2020-03-23 18:12:00 Test Item Value Reference Range Interpretation Comments POCT GLU (test code = 165 mg/dL 70-110 H Notifi ed Provider [id number]) Lab Interpretation (test Abnormal code = 06961-0) [facility] GLUCOSE (AUTOMATED)2020-03-23 18:12:00 Test Item Value Reference Range Interpretation Comments POCT GLU (test code = 165 mg/dL 70-110 H Notifi ed Provider [id number]) Lab Interpretation (test Abnormal code = 32515-4) [facility] GLUCOSE (AUTOMATED)2020-03-23 15:04:00 Test Item Value Reference Range Interpretation Comments POCT GLU (test code = 114 mg/dL 70-110 H Notifi ed Provider [id number]) Lab Interpretation (test Abnormal code = 39659-7) [facility] GLUCOSE (AUTOMATED)2020-03-23 15:04:00 Test Item Value Reference Range Interpretation Comments POCT GLU (test code = 114 mg/dL 70-110 H Notifi ed Provider 1991803330) Lab Interpretation (test Abnormal code = 69592-9) [facility] ResourcesFERRITIN [id number] 13:23:00 Test Item Value Reference Range Interpretation Comments FERRITIN (test code = 139.0 ng/mL 18-464 5822308300) ALYSSA (test code = ALYSSA) Biotin has been reported to cause a negative bias, interpret results relative to patient's use of biotin. Lab Interpretation (test Normal code = 21363-0) [facility] ResourcesFERRITIN [id number] 13:23:00 Test Item Value Reference Range Interpretation Comments FERRITIN (test code = 139.0 ng/mL 18-464 5344443387) ALYSSA (test code = ALYSSA) Biotin has been reported to cause a negative bias, interpret results relative to patient's use of biotin. Lab Interpretation (test Normal code = 88025-1) [facility] [id number] 12:53:00 Test Item Value Reference Range Interpretation Comments IRON (test code = 8170609116) 87 ug/dL 50-160 TIBC (test code = 7399454924) 385 ug/dL 250-410 % FE SAT (test code = 0017328006) 23 % 20-50 Lab Interpretation (test code = Normal 20023-8) [facility] [id number] 12:53:00 Test Item Value Reference Range Interpretation Comments IRON (test code = 0900870204) 87 ug/dL 50-160 TIBC (test code = 2102822887) 385 ug/dL 250-410 % FE SAT (test code = 8372826869) 23 % 20-50 Lab Interpretation (test code = Normal 16949-0) [place] [id number] 12:07:00 Test Item Value Reference Range Interpretation Comments APTT Patient (test code See_Comment HH [Au tomated message] = 3173-2) The system [employer] generated this result transmitted ref erence range: 26 - 36 Seconds. The reference range was not used to int erpret this result as normal/abnormal . Lab Interpretation (test Abnormal code = 39323-1) [facility] ResourcesaPTT2020-05-08 12:07:00 Test Item Value Reference Range Interpretation Comments APTT Patient (test code See_Comment HH [Au tomated message] = 3173-2) The system [employer] generated this result transmitted ref erence range: 26 - 36 Seconds. The reference range was not used to int erpret this result as normal/abnormal . Lab Interpretation (test Abnormal code = 75691-3) [id number] 11:57[facility]00 Test Item Value Reference Range Interpretation Comments TROPONIN I (test 0.046 ng/mL See_Comment H [Automated code = 0586916664) message] The system which generated this result [...] ? Lab Interpretation Abnormal (test code = 71237-0) [facility] ResourcesFLAKOKvng [id number] 11:57:00 Test Item Value Reference Range Interpretation Comments TROPONIN I (test 0.046 ng/mL See_Comment H [Automated code = 9339058502) message] The system which generated this result [...] ? Lab Interpretation Abnormal (test code = 59150-2) [facility] METABOLIC PANEL (NA, K, CL, CO2, GLUCOSE, BUN, CREATININE, CA)2020-03-23 11:52:00 Test Item Value Reference Range Interpretation Comments NA (test code = 137 mmol/L 135-145 1304968907) K (test code = 4.1 mmol/L 3.5-5 0130009461) CL (test code = 102 mmol/L 98-108 9622298236) CO2 TOTAL (test code = 26 mmol/L 23-31 7785224259) AGAP (test code = 2-16 8854707141) BUN (test code = 18 mg/dL 7-23 8234176347) GLUCOSE (test code = 119 mg/dL 70-110 H 4599866217) CREATININE (test code = 1.14 mg/dL 0.6-1.25 4962758003) CALCIUM (test code = 9.1 mg/dL 8.6-10.6 8739868965) eGFR Calculation mL/min/1.73m2 (Non-) (test code = 6550637613) eGFR Calculation mL/min/1.73m2 () (test code = 3029660833) ALYSSA (test code = ALYSSA) Association of [...] tests). Lab Interpretation Abnormal (test code = 12315-4) [facility] ResourcesMAGNESIUM2020-05-08 11:52:00 Test Item Value Reference Range Interpretation Comments MAGNESIUM (test code = 8661421949) 2.2 mg/dL 1.7-2.4 Lab Interpretation (test code = Normal 06234-9) [facility] ResourcesBASI METABOLIC PANEL (NA, K, CL, CO2, GLUCOSE, BUN, CREATININE, CA)2020-03-23 11:52:00 Test Item Value Reference Range Interpretation Comments NA (test code = 137 mmol/L 135-145 9793033545) K (test code = 4.1 mmol/L 3.5-5 3537522909) CL (test code = 102 mmol/L 98-108 1208850176) CO2 TOTAL (test code = 26 mmol/L 23-31 9068260420) AGAP (test code = 2-16 2088296969) BUN (test code = 18 mg/dL 7-23 9916483513) GLUCOSE (test code = 119 mg/dL 70-110 H 4069230036) CREATININE (test code = 1.14 mg/dL 0.6-1.25 9225965404) CALCIUM (test code = 9.1 mg/dL 8.6-10.6 5598764755) eGFR Calculation mL/min/1.73m2 (Non-) (test code = 2887132220) eGFR Calculation mL/min/1.73m2 () (test code = 1191592469) ALYSSA (test code = ALYSSA) Association of [...] tests). Lab Interpretation Abnormal (test code = 53989-5) [facility]2020-[facility]-08 11:52:00 Test Item Value Reference Range Interpretation Comments MAGNESIUM (test code = 0953977871) 2.2 mg/dL 1.7-2.4 Lab Interpretation (test code = Normal 22793-0) [facility] ResourcesProthrombin Time (PT) / [id number] 11:36:00 Test Item Value Reference Range Interpretation Comments PROTIME PATIENT (test See_Comment [Auto mated message] code = 5964-2) The system [employer] generated this result transmitted ref erence range: 10.1 - 1 2.6 Seconds. The re ference range was not u sed to interpret this result as normal/abnor mal. INR (test code = 6301-6) Nor mal INR <1.1; Warfarin Therap eutic range 2.0 to 3. 0 or 2.5 to 3.5, dep ending upon the indica tions. Lab Interpretation (test Normal code = 21601-8) [facility] ResourcesProthrombin Time (PT) / [id number] 11:36:00 Test Item Value Reference Range Interpretation [...] tions. Lab Interpretation (test Normal code = 20629-1) [facility] ResourcesTROPONIN [id number] 06:38:00 Test Item Value Reference Range Interpretation Comments TROPONIN I (test 0.045 ng/mL See_Comment H [Automated code = 2903657824) message] The system which generated this result [...] ? Lab Interpretation Abnormal (test code = 39732-8) [facility] ResourcesTR[facility]ONIN [id number] 06:38:00 Test Item Value Reference Range Interpretation Comments TROPONIN I (test 0.045 ng/mL See_Comment H [Automated code = 0766210615) message] The system which generated this result [...] ? Lab Interpretation Abnormal (test code = 83944-5) [facility] ResourcesBASI METABOLIC PANEL (NA, K, CL, CO2, GLUCOSE, BUN, CREATININE, CA)2020-03-23 06:29:00 Test Item Value Reference Range Interpretation Comments NA (test code = 137 mmol/L 135-145 6569163490) K (test code = 3.6 mmol/L 3.5-5 3485308477) CL (test code = 101 mmol/L 98-108 7941657198) CO2 TOTAL (test code = 27 mmol/L 23-31 1578852240) AGAP (test code = 2-16 7436583618) BUN (test code = 19 mg/dL 7-23 8582647617) GLUCOSE (test code = 153 mg/dL 70-110 H 9100270006) CREATININE (test code = 1.22 mg/dL 0.6-1.25 7137972515) CALCIUM (test code = 8.9 mg/dL 8.6-10.6 0413285852) eGFR Calculation mL/min/1.73m2 (Non-) (test code = 2968363750) eGFR Calculation mL/min/1.73m2 () (test code = 7581748801) ALYSSA (test code = ALYSSA) Association of [...] tests). Lab Interpretation Abnormal (test code = 86551-5) [facility] ResourcesMAGNESIUM2020-05-08 06:29:00 Test Item Value Reference Range Interpretation Comments MAGNESIUM (test code = 2050004709) 1.7 mg/dL 1.7-2.4 Lab Interpretation (test code = Normal 15915-4) [facility] ResourcesLIPID PANEL (69362)(TOTAL CHOLESTEROL, TRIGLYCERIDES, HDL)2020-03-23 06:29:00 Test Item Value Reference Range Interpretation Comments CHOL (test code = 106 mg/dL 120-200 L 6342608358) HDL (test code = 46 mg/dL >40 5842209393) HDLC RATIO (test code = See_Comment [Au tomated message] 3167209940) The system [employer] generated this result transmit diamante reference range : <=5.0. The refe rence range was not u sed to interpret th is result as normal/abnormal . TRIG (test code = 74 mg/dL 30-170 3458750120) LDL CHOL (test code = 45 mg/dL See_Comment [Auto mated message] 73540-0) The system [employer] generated this result transmit diamante reference range : <=160. The refe rence range was not u sed to interpret th is result as normal/abnormal . VLDL (test code = 15 mg/dL 5-60 9303614791) Lab Interpretation (test Abnormal code = 50063-5) [facility] METABOLIC PANEL (NA, K, CL, CO2, GLUCOSE, BUN, CREATININE, CA)2020-03-23 06:29:00 Test Item Value Reference Range Interpretation Comments NA (test code = 137 mmol/L 135-145 1705351107) K (test code = 3.6 mmol/L 3.5-5 2511534500) CL (test code = 101 mmol/L 98-108 0539425027) CO2 TOTAL (test code = 27 mmol/L 23-31 5533987499) AGAP (test code = 2-16 1779243939) BUN (test code = 19 mg/dL 7-23 0503910971) GLUCOSE (test code = 153 mg/dL 70-110 H 3700386351) CREATININE (test code = 1.22 mg/dL 0.6-1.25 1699072483) CALCIUM (test code = 8.9 mg/dL 8.6-10.6 3892296821) eGFR Calculation mL/min/1.73m2 (Non-) (test code = 1686551850) eGFR Calculation mL/min/1.73m2 () (test code = 9529072166) ALYSSA (test code = ALYSSA) Association of [...] tests). Lab Interpretation Abnormal (test code = 18934-2) [facility] ResourcesMAG[facility]IUM2020-05-08 06:29:00 Test Item Value Reference Range Interpretation Comments MAGNESIUM (test code = 3490277206) 1.7 mg/dL 1.7-2.4 Lab Interpretation (test code = Normal 78754-6) [facility] ResourcesLIPID PANEL (07678)(TOTAL CHOLESTEROL, TRIGLYCERIDES, HDL)2020-03-23 06:29:00 Test Item Value Reference Range Interpretation Comments CHOL (test code = 106 mg/dL 120-200 L 2260538374) HDL (test code = 46 mg/dL >40 9834341063) HDLC RATIO (test code = See_Comment [Au tomated message] 4261872226) The system [employer] generated this result transmit diamante reference range : <=5.0. The refe rence range was not u sed to interpret th is result as normal/abnormal . TRIG (test code = 74 mg/dL 30-170 5193078450) LDL CHOL (test code = 45 mg/dL See_Comment [Auto mated message] 83360-2) The system [employer] generated this result transmit diamante reference range : <=160. The refe rence range was not u sed to interpret th is result as normal/abnormal . VLDL (test code = 15 mg/dL 5-60 0099505917) Lab Interpretation (test Abnormal code = 32027-2) [facility] Test Item Value Reference Range Interpretation Comments APTT Patient (test code = See_Comment [ Automated message] 3173-2) The system [employer] generated this result transmitted ref erence range: 26 - 36 Seconds. The re ference range was not u sed to interpret this result as normal/abnor mal. Lab Interpretation (test Normal code = 43846-7) [facility] Test Item Value Reference Range Interpretation Comments APTT Patient (test code = See_Comment [ Automated message] 3173-2) The system [employer] generated this result transmitted ref erence range: 26 - 36 Seconds. The re ference range was not u sed to interpret this result as normal/abnor mal. Lab Interpretation (test Normal code = 77893-0) [facility] ResourcesPROTHROMBIN TIME / [id number] 03:07:00 Test Item Value Reference Range Interpretation Comments PROTIME PATIENT (test See_Comment [Auto mated message] code = 5964-2) The system [employer] generated this result transmitted ref erence range: 10.1 - 1 2.6 Seconds. The re ference range was not u sed to interpret this result as normal/abnor mal. INR (test code = 6301-6) Nor mal INR <1.1; Warfarin Therap eutic range 2.0 to 3. 0 or 2.5 to 3.5, dep ending upon the indica tions. Lab Interpretation (test Normal code = 34030-3) [facility] ResourcesPROTHROMBIN TIME / [id number] 03:07:00 Test Item Value Reference Range Interpretation [...] tions. Lab Interpretation (test Normal code = 90630-6) [facility] ResourcesXR CHEST 2 [id number] 02:23:32 No acute cardiopulmonary process. Preliminary Report [...] reviewed this study and agree with the abovereport.[facility] ResourcesXR CHEST 2 [id number] 02:23:32 No acute cardiopulmonary process. Preliminary Report [...] reviewed this study and agree with the abovereport.[facility] ResourcesCORONAVIRUS COVID-19 [id number] 01:23:00 Test Item Value Reference Range Interpretation Comments SARS-CoV-2 (test code = Not Detected Not Detected 00994-6) ALYSSA (test code = ALYSSA) ID NOW COVID-19 Assay is an isothermal nucleic acid amplification test intended for the qualitative detection of nucleic acid from SARS-CoV-2 viral RNA in nasopharyngeal (HEALTH CLINICIAN) specimens. It is used under Emergency Use [...] indicated. Lab Interpretation Normal (test code = 76223-9) [facility]COR[facility] [id number] 01:23:00 Test Item Value Reference Range Interpretation Comments SARS-CoV-2 (test code = Not Detected Not Detected 41906-7) ALYSSA (test code = ALYSSA) ID NOW COVID-19 Assay is an isothermal nucleic acid amplification test intended for the qualitative detection of nucleic acid from SARS-CoV-2 viral RNA in nasopharyngeal (HEALTH CLINICIAN) specimens. It is used under Emergency Use [...] indicated. Lab Interpretation Normal (test code = 14510-1) [facility] ResourcesN-TERMINAL [id number] 00:12:00 Test Item Value Reference Range Interpretation Comments NT-proBNP (test code 585 pg/mL See_Comment H [Autom ated = 2063858144) message] The system which generated this result transmitted reference range : <=450. The reference range was not used to interpret this result as normal/abnormal . ALYSSA (test code = ALYSSA) Biotin has been reported to cause a negative bias, interpret results relative to patient's use of biotin. Lab Interpretation Abnormal (test code = 02575-3) [facility] ResourcesTROPONIN [id number] 00:12:00 Test Item Value Reference Range Interpretation Comments TROPONIN I (test 0.030 ng/mL See_Comment [Automated code = 8640260236) message] The system which generated this result [...] ? Lab Interpretation Normal (test code = 16775-8) [facility] ResourcesN-TERMINAL [id number] 00:12:00 Test Item Value Reference Range Interpretation Comments NT-proBNP (test code 585 pg/mL See_Comment H [Autom ated = 7780086902) message] The system which generated this result transmitted reference range : <=450. The reference range was not used to interpret this result as normal/abnormal . ALYSSA (test code = ALYSSA) Biotin has been reported to cause a negative bias, interpret results relative to patient's use of biotin. Lab Interpretation Abnormal (test code = 90739-1) [facility] ResourcesTR[facility]ONIN [id number] 00:12:00 Test Item Value Reference Range Interpretation Comments TROPONIN I (test 0.030 ng/mL See_Comment [Automated code = 0042356739) message] The system which generated this result [...] ? Lab Interpretation Normal (test code = 75286-8) [facility]. METABOLIC PANEL (44546)2020-03-23 00:03:00 Test Item Value Reference Range Interpretation Comments NA (test code = 138 mmol/L 135-145 1774450347) K (test code = 4.1 mmol/L 3.5-5 4707065399) CL (test code = 103 mmol/L 98-108 9444552596) CO2 TOTAL (test code = 26 mmol/L 23-31 5898276169) AGAP (test code = 2-16 3298586909) BUN (test code = 18 mg/dL 7-23 5883260965) GLUCOSE (test code = 157 mg/dL 70-110 H 5404343733) CREATININE (test code = 1.19 mg/dL 0.6-1.25 6527963152) TOTAL BILI (test code = 1.1 mg/dL 0.1-1.0 7799850486) CALCIUM (test code = 9.2 mg/dL 8.6-10.6 7270646934) T PROTEIN (test code = 6.8 g/dL 6.3-8.2 2163439540) ALBUMIN (test code = 4.0 g/dL 3.5-5 2138681102) ALK PHOS (test code = 51 U/L 34-122 7094631993) ALTv (test code = 16 U/L 5-50 1742-6) AST(SGOT) (test code = 23 U/L 13-40 8052804049) eGFR Calculation mL/min/1.73m2 (Non-) (test code = 6233022376) eGFR Calculation mL/min/1.73m2 () (test code = 5118678008) ALYSSA (test code = ALYSSA) Association of [...] tests). Lab Interpretation Abnormal (test code = 34881-5) [facility]. METABOLIC PANEL (54267)2020-03-23 00:03:00 Test Item Value Reference Range Interpretation Comments NA (test code = 138 mmol/L 135-145 5457969054) K (test code = 4.1 mmol/L 3.5-5 0284595408) CL (test code = 103 mmol/L 98-108 0104912985) CO2 TOTAL (test code = 26 mmol/L 23-31 4436775522) AGAP (test code = 2-16 5195270996) BUN (test code = 18 mg/dL 7-23 6187559214) GLUCOSE (test code = 157 mg/dL 70-110 H 4591758094) CREATININE (test code = 1.19 mg/dL 0.6-1.25 7426100288) TOTAL BILI (test code = 1.1 mg/dL 0.1-1.0 9349770330) CALCIUM (test code = 9.2 mg/dL 8.6-10.6 0580636661) T PROTEIN (test code = 6.8 g/dL 6.3-8.2 1927090956) ALBUMIN (test code = 4.0 g/dL 3.5-5 4359080097) ALK PHOS (test code = 51 U/L 34-122 2587542163) ALTv (test code = 16 U/L 5-50 1742-6) AST(SGOT) (test code = 23 U/L 13-40 8426960059) eGFR Calculation mL/min/1.73m2 (Non-) (test code = 8582433144) eGFR Calculation mL/min/1.73m2 () (test code = 0844387308) ALYSSA (test code = ALYSSA) Association of [...] tests). Lab Interpretation Abnormal (test code = 75981-5) [facility] WITH [id number] 23:57:00 Test Item Value Reference Range Interpretation Comments WBC (test code = See_Comment [Automated 6970-2) message] The sy stem which generated this result transmitted reference range : 4.20 - 10.70 10*3/?L. The reference range was not used to interpret this result as normal/abnormal . RBC (test code = See_Comment L [Automated 039-8) message] The sy stem which generated this [...] RDW-SD (test code = 49.6 fL 38.5-51.6 27102-1) RDW-CV (test code = 14.6 % 12.1-15.4 788-0) PLT (test code = See_Comment L [Automated 777-3) message] The sy stem which generated this result transmitted reference range : 150 - 328 10*3/ ?L. The reference r corey was not used to interpret this result as normal/abnormal . MPV (test code = 9.9 fL 9.8-13 48097-1) NRBC/100 WBC (test See_Comment [Automat ed code = 6655272354) message] The system which generated this result transmitted reference range : 0.0 - 10.0 /100 WBCs. The refer ence range was not u sed to interpret th is result as normal/abnormal . NRBC x10^3 (test code <0.01 See_Comment [Auto mated = 7616597853) message] The s ystem which generated this result transmitted reference range : 10*3/?L. The reference range was not used to interpret this result as normal/abnormal . GRAN MAT (NEUT) % 55.3 % (test code = 770-8) IMM GRAN % (test code 0.20 % = 3730816870) LYMPH % (test code = 28.3 % 736-9) MONO % (test code = 12.6 % 5905-5) EOS % (test code = 3.1 % 713-8) BASO % (test code = 0.5 % 706-2) GRAN MAT x10^3(ANC) 3.20 10*3/uL 1.99-6.95 (test code = 1646312239) IMM GRAN x10^3 (test <0.03 0-0.06 code = 0467202459) LYMPH x10^3 (test code 1.64 10*3/uL 1.09-3.23 = 731-0) MONO x10^3 (test code 0.73 10*3/uL 0.36-1.02 = 742-7) EOS x10^3 (test code = 0.18 10*3/uL 0.06-0.53 711-2) BASO x10^3 (test code 0.03 10*3/uL 0.01-0.09 = 704-7) Lab Interpretation Abnormal (test code = 36849-0) [facility] WITH [id number] 23:57:00 Test Item Value Reference Range Interpretation Comments WBC (test code = See_Comment [Automated 3690-2) message] The sy stem which generated this result transmitted reference range : 4.20 - 10.70 10*3/?L. The reference range was not used to interpret this result as normal/abnormal . RBC (test code = See_Comment L [Automated 589-8) message] The sy stem which generated this [...] RDW-SD (test code = 49.6 fL 38.5-51.6 84151-0) RDW-CV (test code = 14.6 % 12.1-15.4 788-0) PLT (test code = See_Comment L [Automated 777-3) message] The sy stem which generated this result transmitted reference range : 150 - 328 10*3/ ?L. The reference r corey was not used to interpret this result as normal/abnormal . MPV (test code = 9.9 fL 9.8-13 44725-8) NRBC/100 WBC (test See_Comment [Automat ed code = 3087525851) message] The system which generated this result transmitted reference range : 0.0 - 10.0 /100 WBCs. The refer ence range was not u sed to interpret th is result as normal/abnormal . NRBC x10^3 (test code <0.01 See_Comment [Auto mated = 8489619514) message] The s ystem which generated this result transmitted reference range : 10*3/?L. The reference range was not used to interpret this result as normal/abnormal . GRAN MAT (NEUT) % 55.3 % (test code = 770-8) IMM GRAN % (test code 0.20 % = 1633270079) LYMPH % (test code = 28.3 % 736-9) MONO % (test code = 12.6 % 5905-5) EOS % (test code = 3.1 % 713-8) BASO % (test code = 0.5 % 706-2) GRAN MAT x10^3(ANC) 3.20 10*3/uL 1.99-6.95 (test code = 5249037869) IMM GRAN x10^3 (test <0.03 0-0.06 code = 5417634166) LYMPH x10^3 (test code 1.64 10*3/uL 1.09-3.23 = 731-0) MONO x10^3 (test code 0.73 10*3/uL 0.36-1.02 = 742-7) EOS x10^3 (test code = 0.18 10*3/uL 0.06-0.53 711-2) BASO x10^3 (test code 0.03 10*3/uL 0.01-0.09 = 704-7) Lab Interpretation Abnormal (test code = 35179-7) [facility]COR[facility] COVID-19 [id number] 21:48:00 Test Item Value Reference Range Interpretation Comments SARS-CoV-2 (test code = Not Detected Not Detected 27405-0) ALYSSA (test code = ALYSAS) ID NOW COVID-19 Assay is an isothermal nucleic acid amplification test intended for the qualitative detection of nucleic acid from SARS-CoV-2 viral RNA in nasopharyngeal (HEALTH CLINICIAN) specimens. It is used under Emergency Use [...] indicated. Lab Interpretation Normal (test code = 93178-9) [facility] ResourcesFlakokvng [id number] 21:44:00 Test Item Value Reference Range Interpretation Comments TROPONIN I (test 0.027 ng/mL See_Comment [Automated code = 2764480011) message] The system which generated this result [...] ? Lab Interpretation Normal (test code = 57228-1) [facility] ResourcesProthrombin Time (PT) / [id number] 21:41:00 Test Item Value Reference Range Interpretation [...] tions. Lab Interpretation (test Normal code = 02201-0) [facility] ResourcesN-TERMINAL [id number] 21:39:00 Test Item Value Reference Range Interpretation Comments NT-proBNP (test code 663 pg/mL See_Comment H [Autom ated = 3526894545) message] The system which generated this result transmitted reference range : <=450. The reference range was not used to interpret this result as normal/abnormal . ALYSSA (test code = ALYSSA) Biotin has been reported to cause a negative bias, interpret results relative to patient's use of biotin. Lab Interpretation Abnormal (test code = 26206-2) [facility] ResourcesCOMP. METABOLIC PANEL (85914)2020-03-21 21:37:00 Test Item Value Reference Range Interpretation Comments NA (test code = 139 mmol/L 135-145 9443663671) K (test code = 4.1 mmol/L 3.5-5 7367839248) CL (test code = 102 mmol/L 98-108 5842184309) CO2 TOTAL (test code = 29 mmol/L 23-31 9660655848) AGAP (test code = 2-16 7006182934) BUN (test code = 18 mg/dL 7-23 2300534457) GLUCOSE (test code = 277 mg/dL 70-110 H 7074391201) CREATININE (test code = 1.23 mg/dL 0.6-1.25 4380798332) TOTAL BILI (test code = 1.3 mg/dL 0.1-1.1 H 1152785495) CALCIUM (test code = 9.8 mg/dL 8.6-10.6 0063003690) T PROTEIN (test code = 7.0 g/dL 6.3-8.2 3364277686) ALBUMIN (test code = 4.2 g/dL 3.5-5 6619693750) ALK PHOS (test code = 50 U/L 34-122 0648689898) ALTv (test code = 15 U/L 5-50 1742-6) AST(SGOT) (test code = 22 U/L 13-40 8042750743) eGFR Calculation mL/min/1.73m2 (Non-) (test code = 0085815634) eGFR Calculation mL/min/1.73m2 () (test code = 1232243691) ALYSSA (test code = ALYSSA) Association of [...] tests). Lab Interpretation Abnormal (test code = 05398-9) [facility] ResourcesLipase [id number] 21:37:00 Test Item Value Reference Range Interpretation Comments LIPASE (test code = 8644171650) 161 U/L 0-220 Lab Interpretation (test code = Normal 80393-8) [facility] 1 [id number] 20:46:31HISTORY: Chest pain. TECHNIQUE: Portable AP view [...] noted. Mild thoracolumbar scoliosis noted.CONCLUSIONS: Mild cardiomegaly. [facility] ResourcesLanhic Acid Whole [id number] 20:43:00 Test Item Value Reference Range Interpretation Comments LACTIC ACID (test code = 1.91 mmol/L 0.3-2.6 2396708745) [facility] GLUCOSE (AUTOMATED)2020-03-07 20:58:00 Test Item Value Reference Range Interpretation Comments POCT GLU (test code = 7936638591) 216 mg/dL 70-110 H Lab Interpretation (test code = Abnormal 16175-5) [facility] GLUCOSE (AUTOMATED)2020-03-07 16:00:00 Test Item Value Reference Range Interpretation Comments POCT GLU (test code = 8914177399) 168 mg/dL 70-110 H Lab Interpretation (test code = Abnormal 25142-8) [facility] GLUCOSE (AUTOMATED)2020-03-07 13:07:00 Test Item Value Reference Range Interpretation Comments POCT GLU (test code = 8791808609) 148 mg/dL 70-110 H Lab Interpretation (test code = Abnormal 61062-3) [facility] ResourcesTROPONIN [id number] 11:27:00 Test Item Value Reference Range Interpretation Comments TROPONIN I (test 0.051 ng/mL See_Comment H [Automated code = 3991989870) message] The system which generated this result [...] ? Lab Interpretation Abnormal (test code = 41110-9) [facility] ResourcesN-TERMINAL [id number] 11:24:00 Test Item Value Reference Range Interpretation Comments NT-proBNP (test code 336 pg/mL See_Comment [Autom ated = 5711363562) message] The system which generated this result transmitted reference range : <=450. The reference range was not used to interpret this result as normal/abnormal . ALYSSA (test code = ALYSSA) Biotin has been reported to cause a negative bias, interpret results relative to patient's use of biotin. Lab Interpretation Normal (test code = 01026-3) [facility] ResourcesBasi Metabolic Panel (NA, K, CL, CO2, GLUCOSE, BUN, CREATININE, CA)2020-03-07 11:14:00 Test Item Value Reference Range Interpretation Comments NA (test code = 138 mmol/L 135-145 4891087304) K (test code = 3.8 mmol/L 3.5-5 3473009861) CL (test code = 97 mmol/L 98-108 L 5477047428) CO2 TOTAL (test code = 30 mmol/L 23-31 9193807202) AGAP (test code = 2-16 1815511161) BUN (test code = 36 mg/dL 7-23 H 9393033965) GLUCOSE (test code = 140 mg/dL 70-110 H 7012605525) CREATININE (test code = 1.50 mg/dL 0.6-1.25 H 8850273640) CALCIUM (test code = 10.0 mg/dL 8.6-10.6 9492308123) eGFR Calculation mL/min/1.73m2 (Non-) (test code = 5852075764) eGFR Calculation mL/min/1.73m2 () (test code = 4802710399) ALYSSA (test code = ALYSSA) Association of [...] tests). Lab Interpretation Abnormal (test code = 73021-8) [facility] ResourcesURIC [id number] 11:14:00 Test Item Value Reference Range Interpretation Comments URIC ACID (test code = 4509184103) 5.4 mg/dL 3.6-8 Lab Interpretation (test code = Normal 10751-8) [facility] ResourcesCB WITH [id number] 10:53:00 Test Item Value Reference Range Interpretation [...] RDW-SD (test code = 45.1 fL 38.5-51.6 14320-9) RDW-CV (test code = 14.2 % 12.1-15.4 788-0) PLT (test code = See_Comment [Automated 777-3) message] The sy stem which generated this result transmitted reference range : 150 - 328 10*3/ ?L. The reference r corey was not used to interpret this result as normal/abnormal . MPV (test code = 9.8 fL 9.8-13 08673-7) NRBC/100 WBC (test See_Comment [Automat ed code = 9422941913) message] The system which generated this result transmitted reference range : 0.0 - 10.0 /100 WBCs. The refer ence range was not u sed to interpret th is result as normal/abnormal . NRBC x10^3 (test code <0.01 See_Comment [Auto mated = 6354780794) message] The s ystem which generated this result transmitted reference range : 10*3/?L. The reference range was not used to interpret this result as normal/abnormal . GRAN MAT (NEUT) % 51.0 % (test code = 770-8) IMM GRAN % (test code 0.50 % = 8380488736) LYMPH % (test code = 32.0 % 736-9) MONO % (test code = 11.3 % 5905-5) EOS % (test code = 4.3 % 713-8) BASO % (test code = 0.9 % 706-2) GRAN MAT x10^3(ANC) 2.85 10*3/uL 1.99-6.95 (test code = 0991991936) IMM GRAN x10^3 (test 0.03 10*3/uL 0-0.06 code = 7967242067) LYMPH x10^3 (test code 1.79 10*3/uL 1.09-3.23 = 731-0) MONO x10^3 (test code 0.63 10*3/uL 0.36-1.02 = 742-7) EOS x10^3 (test code = 0.24 10*3/uL 0.06-0.53 711-2) BASO x10^3 (test code 0.05 10*3/uL 0.01-0.09 = 704-7) Lab Interpretation Abnormal (test code = 00268-0) [facility] GLUCOSE (AUTOMATED)2020-03-06 22:46:00 Test Item Value Reference Range Interpretation Comments POCT GLU (test code = 8075410541) 209 mg/dL 70-110 H Lab Interpretation (test code = Abnormal 63213-8) [facility] GLUCOSE (AUTOMATED)2020-03-06 16:23:00 Test Item Value Reference Range Interpretation Comments POCT GLU (test code = 2294890432) 254 mg/dL 70-110 H Lab Interpretation (test code = Abnormal 24305-2) [facility] GLUCOSE (AUTOMATED)2020-03-06 12:51:00 Test Item Value Reference Range Interpretation Comments POCT GLU (test code = 4734644523) 126 mg/dL 70-110 H Lab Interpretation (test code = Abnormal 45616-0) [facility] [id number] 10:16:00 Test Item Value Reference Range Interpretation Comments TROPONIN I (test 0.056 ng/mL See_Comment H [Automated code = 9708059791) message] The system which generated this result [...] ? Lab Interpretation Abnormal (test code = 54742-5) [facility] (NA, K, CL, CO2, GLUCOSE, BUN, CREATININE, CA)2020-03-06 10:13:00 Test Item Value Reference Range Interpretation Comments NA (test code = 136 mmol/L 135-145 9595387955) K (test code = 4.1 mmol/L 3.5-5 5867688932) CL (test code = 95 mmol/L 98-108 L 3236433205) CO2 TOTAL (test code = 30 mmol/L 23-31 9826124683) AGAP (test code = 2-16 9857072627) BUN (test code = 35 mg/dL 7-23 H 4263295593) GLUCOSE (test code = 174 mg/dL 70-110 H 5864525102) CREATININE (test code = 1.67 mg/dL 0.6-1.25 H 6425302540) CALCIUM (test code = 9.7 mg/dL 8.6-10.6 4822967441) eGFR Calculation mL/min/1.73m2 (Non-) (test code = 5698890437) eGFR Calculation mL/min/1.73m2 () (test code = 8545933570) ALYSSA (test code = ALYSSA) Association of [...] tests). Lab Interpretation Abnormal (test code = 51747-5) [facility] WITH [id number] 09:16:00 Test Item Value Reference Range Interpretation Comments WBC (test code = See_Comment [Automated 6790-2) message] The sy stem which generated this [...] RDW-SD (test code = 45.6 fL 38.5-51.6 85167-3) RDW-CV (test code = 14.3 % 12.1-15.4 788-0) PLT (test code = See_Comment [Automated 777-3) message] The sy stem which generated this result transmitted reference range : 150 - 328 10*3/ ?L. The reference r corey was not used to interpret this result as normal/abnormal . MPV (test code = 9.8 fL 9.8-13 14086-5) NRBC/100 WBC (test See_Comment [Automat ed code = 3937089788) message] The system which generated this result transmitted reference range : 0.0 - 10.0 /100 WBCs. The refer ence range was not u sed to interpret th is result as normal/abnormal . NRBC x10^3 (test code <0.01 See_Comment [Auto mated = 0923333022) message] The s ystem which generated this result transmitted reference range : 10*3/?L. The reference range was not used to interpret this result as normal/abnormal . GRAN MAT (NEUT) % 56.1 % (test code = 770-8) IMM GRAN % (test code 0.10 % = 7804359724) LYMPH % (test code = 29.7 % 736-9) MONO % (test code = 9.6 % 5905-5) EOS % (test code = 3.8 % 713-8) BASO % (test code = 0.7 % 706-2) GRAN MAT x10^3(ANC) 3.79 10*3/uL 1.99-6.95 (test code = 8599360421) IMM GRAN x10^3 (test <0.03 0-0.06 code = 8532913682) LYMPH x10^3 (test code 2.01 10*3/uL 1.09-3.23 = 731-0) MONO x10^3 (test code 0.65 10*3/uL 0.36-1.02 = 742-7) EOS x10^3 (test code = 0.26 10*3/uL 0.06-0.53 711-2) BASO x10^3 (test code 0.05 10*3/uL 0.01-0.09 = 704-7) Lab Interpretation Abnormal (test code = 96806-4) [facility]2020-03-06 01:25:00 Test Item Value Reference Range Interpretation Comments POCT GLU (test code = 9190293342) 208 mg/dL 70-110 H Lab Interpretation (test code = Abnormal 20739-9) [facility] ResourcesTR[facility]IN [id number] 00:08:00 Test Item Value Reference Range Interpretation Comments TROPONIN I (test 0.047 ng/mL See_Comment H [Automated code = 6411778474) message] The system which generated this result [...] ? Lab Interpretation Abnormal (test code = 92639-1) [facility] GLUCOSE (AUTOMATED)2020-03-05 21:19:00 Test Item Value Reference Range Interpretation Comments POCT GLU (test code = 8122777940) 234 mg/dL 70-110 H Lab Interpretation (test code = Abnormal 98198-2) [facility] GLUCOSE (AUTOMATED)2020-03-05 16:55:00 Test Item Value Reference Range Interpretation Comments POCT GLU (test code = 2525295216) 258 mg/dL 70-110 H Lab Interpretation (test code = Abnormal 73983-3) [facility] GLUCOSE (AUTOMATED)2020-03-05 12:59:00 Test Item Value Reference Range Interpretation Comments POCT GLU (test code = 3381051207) 194 mg/dL 70-110 H Lab Interpretation (test code = Abnormal 86806-6) [facility] ResourcesTR[facility]IN [id number] 10:54:00 Test Item Value Reference Range Interpretation Comments TROPONIN I (test 0.071 ng/mL See_Comment H [Automated code = 6602530884) message] The system which generated this result [...] ? Lab Interpretation Abnormal (test code = 83167-2) [facility] Metabolic Panel (NA, K, CL, CO2, GLUCOSE, BUN, CREATININE, CA)2020-03-05 10:43:00 Test Item Value Reference Range Interpretation Comments NA (test code = 139 mmol/L 135-145 1197188530) K (test code = 4.1 mmol/L 3.5-5 1633629916) CL (test code = 101 mmol/L 98-108 1235749672) CO2 TOTAL (test code = 27 mmol/L 23-31 5431166076) AGAP (test code = 2-16 2978234305) BUN (test code = 25 mg/dL 7-23 H 7201537973) GLUCOSE (test code = 243 mg/dL 70-110 H 2201190416) CREATININE (test code = 1.22 mg/dL 0.6-1.25 4429257783) CALCIUM (test code = 9.8 mg/dL 8.6-10.6 0077336916) eGFR Calculation mL/min/1.73m2 (Non-) (test code = 2241379711) eGFR Calculation mL/min/1.73m2 () (test code = 8411423560) ALYSSA (test code = ALYSSA) Association of [...] tests). Lab Interpretation Abnormal (test code = 12781-6) [facility] WITH [id number] 10:23:00 Test Item Value Reference Range Interpretation Comments WBC (test code = See_Comment [Automated message] 6690-2) The system [employer] generated this result transmitted ref erence range: 4.20 - 1 0.70 10*3/?L. The re ference range was not u sed to interpret this result as normal/abnor mal. RBC (test code = See_Comment [Automated message] 789-8) The system [employer] generated this result transmitted ref erence range: [...] RDW-SD (test code 47.8 fL 38.5-51.6 = 64752-6) RDW-CV (test code 14.4 % 12.1-15.4 = 788-0) PLT (test code = See_Comment [Automated message] 777-3) The system whic h generated this result transmitted ref erence range: 150 - 32 8 10*3/?L. The re ference range was not u sed to interpret this result as normal/abnor mal. MPV (test code = 9.8 fL 9.8-13 44681-0) NRBC/100 WBC (test See_Comment [Automat ed message] code = 5551115602) The syste m which generated this result transmitted ref erence range: 0.0 - 10 .0 /100 WBCs. The refer ence range was not u sed to interpret this result as normal/abnor mal. NRBC x10^3 (test <0.01 See_Comment [Automated message] code = 7801181684) The syste m which generated this result transmitted ref erence range: 10*3/?L. The reference range was not used to interpr et this result as normal/abnormal . GRAN MAT (NEUT) % 48.8 % (test code = 770-8) IMM GRAN % (test 0.20 % code = 8300504588) LYMPH % (test code 34.7 % = 736-9) MONO % (test code 10.8 % = 5905-5) EOS % (test code = 4.9 % 713-8) BASO % (test code 0.6 % = 706-2) GRAN MAT 2.49 10*3/uL 1.99-6.95 x10^3(ANC) (test code = 3815372487) IMM GRAN x10^3 <0.03 0-0.06 (test code = 5835886483) LYMPH x10^3 (test 1.77 10*3/uL 1.09-3.23 code = 731-0) MONO x10^3 (test 0.55 10*3/uL 0.36-1.02 code = 742-7) EOS x10^3 (test 0.25 10*3/uL 0.06-0.53 code = 711-2) BASO x10^3 (test 0.03 10*3/uL 0.01-0.09 code = 704-7) [facility] ResourcesXR CHEST 1 [id number] 03:06:08 No acute cardiopulmonary process. Unchanged enlargement [...] reviewed this study and agree with the abovereport.[facility] CORONAVIRUS COVID-19 [id number] 00:34:00 Test Item Value Reference Range Interpretation Comments SARS-CoV-2 (test code = Not Detected Not Detected 36176-7) ALYSSA (test code = ALYSSA) ID NOW COVID-19 Assay is an isothermal nucleic acid amplification test intended for the qualitative detection of nucleic acid from SARS-CoV-2 viral RNA in nasopharyngeal (HEALTH CLINICIAN) specimens. It is used under Emergency Use [...] indicated. Lab Interpretation Normal (test code = 28474-8) [facility] ResourcesTroponin [id number] 00:08:00 Test Item Value Reference Range Interpretation Comments TROPONIN I (test 0.056 ng/mL See_Comment H [Automated code = 5625162442) message] The system which generated this result [...] ? Lab Interpretation Abnormal (test code = 10520-7) [facility] ResourcesN-TERMINAL [id number] 00:04:00 Test Item Value Reference Range Interpretation Comments NT-proBNP (test code 562 pg/mL See_Comment H [Autom ated = 1603451206) message] The system which generated this result transmitted reference range : <=450. The reference range was not used to interpret this result as normal/abnormal . ALYSSA (test code = ALYSSA) Biotin has been reported to cause a negative bias, interpret results relative to patient's use of biotin. Lab Interpretation Abnormal (test code = 82682-6) [facility] ResourcesProthrombin Time (PT) / [id number] 23:57:00 Test Item Value Reference Range Interpretation Comments PROTIME PATIENT (test See_Comment [Auto mated message] code = 5964-2) The system [employer] generated this result transmitted ref erence range: 12.0 - 1 4.7 Seconds. The re ference range was not u sed to interpret this result as normal/abnor mal. INR (test code = 6301-6) Nor mal INR <1.1; Warfarin Therap eutic range 2.0 to 3. 0 or 2.5 to 3.5, dep ending upon the indica tions. Lab Interpretation (test Normal code = 32832-4) [facility] Metabolic Panel (NA, K, CL, CO2, GLUCOSE, BUN, CREATININE, CA)2020-03-04 23:56:00 Test Item Value Reference Range Interpretation Comments NA (test code = 139 mmol/L 135-145 6795491763) K (test code = 4.1 mmol/L 3.5-5 9608107908) CL (test code = 102 mmol/L 98-108 6935349799) CO2 TOTAL (test code = 29 mmol/L 23-31 4153364485) AGAP (test code = 2-16 4806691256) BUN (test code = 23 mg/dL 7-23 1366818091) GLUCOSE (test code = 193 mg/dL 70-110 H 2927318037) CREATININE (test code = 1.25 mg/dL 0.6-1.25 6097398193) CALCIUM (test code = 9.7 mg/dL 8.6-10.6 9871343043) eGFR Calculation mL/min/1.73m2 (Non-) (test code = 6172401174) eGFR Calculation mL/min/1.73m2 () (test code = 7694186886) ALYSSA (test code = ALYSSA) Association of [...] tests). Lab Interpretation Abnormal (test code = 90319-7) [facility] ResourcesHepatic Function Panel (ALB, T.PRO, BILI T, BU/BC, ALT, AST, ALK PHOS)2020-03-04 23:56:00 Test Item Value Reference Range Interpretation Comments TOTAL BILI (test code = 0657081823) 1.1 mg/dL 0.1-1.1 BILI UNCON (test code = 2243423604) 1.1 mg/dL 0.1-1.1 BILI CONJ (test code = 0129640238) 0.0 mg/dL 0-0.3 T PROTEIN (test code = 8055497542) 7.1 g/dL 6.3-8.2 ALBUMIN (test code = 9121993785) 4.1 g/dL 3.5-5 ALK PHOS (test code = 1562338119) 61 U/L 34-122 ALTv (test code = 1742-6) 16 U/L 5-50 AST(SGOT) (test code = 5144947427) 23 U/L 13-40 Lab Interpretation (test code = Normal 17995-6) [facility] ResourcesLipase [id number] 23:56:00 Test Item Value Reference Range Interpretation Comments LIPASE (test code = 3622739441) 149 U/L 0-220 Lab Interpretation (test code = Normal 50475-5) [facility] ResourcesaPTT2020-04-19 23:56:00 Test Item Value Reference Range Interpretation Comments APTT Patient (test See_Comment [Automat ed code = 3173-2) message] The system which generated this result transmitted reference range : 23 - 38 Seconds . The reference range was not used to interpr et this result as normal/abnormal . ALYSSA (test code = ALYSSA) The [facility] patient population mean normal value for aPTT is 30 seconds. Lab Interpretation Normal (test code = 73884-3) [facility] ResourcesCB WITH [id number] 23:46:00 Test Item Value Reference Range Interpretation [...] RDW-SD (test code = 48.3 fL 38.5-51.6 84663-3) RDW-CV (test code = 14.7 % 12.1-15.4 788-0) PLT (test code = See_Comment [Automated 777-3) message] The sy stem which generated this result transmitted reference range : 150 - 328 10*3/ ?L. The reference r corey was not used to interpret this result as normal/abnormal . MPV (test code = 9.8 fL 9.8-13 40441-0) NRBC/100 WBC (test See_Comment [Automat ed code = 1613189945) message] The system which generated this result transmitted reference range : 0.0 - 10.0 /100 WBCs. The refer ence range was not u sed to interpret th is result as normal/abnormal . NRBC x10^3 (test code <0.01 See_Comment [Auto mated = 4870228053) message] The s ystem which generated this result transmitted reference range : 10*3/?L. The reference range was not used to interpret this result as normal/abnormal . GRAN MAT (NEUT) % 60.1 % (test code = 770-8) IMM GRAN % (test code 0.20 % = 3103162440) LYMPH % (test code = 26.4 % 736-9) MONO % (test code = 9.9 % 5905-5) EOS % (test code = 2.8 % 713-8) BASO % (test code = 0.6 % 706-2) GRAN MAT x10^3(ANC) 3.17 10*3/uL 1.99-6.95 (test code = 6406099864) IMM GRAN x10^3 (test <0.03 0-0.06 code = 4835722063) LYMPH x10^3 (test code 1.39 10*3/uL 1.09-3.23 = 731-0) MONO x10^3 (test code 0.52 10*3/uL 0.36-1.02 = 742-7) EOS x10^3 (test code = 0.15 10*3/uL 0.06-0.53 711-2) BASO x10^3 (test code 0.03 10*3/uL 0.01-0.09 = 704-7) Lab Interpretation Abnormal (test code = 86527-7) [facility] GLUCOSE (AUTOMATED)2020-03-02 16:04:00 Test Item Value Reference Range Interpretation Comments POCT GLU (test code = 8905189539) 214 mg/dL 70-110 H Lab Interpretation (test code = Abnormal 58266-3) [facility] GLUCOSE (AUTOMATED)2020-03-02 16:04:00 Test Item Value Reference Range Interpretation Comments POCT GLU (test code = 9247419832) 271 mg/dL 70-110 H Lab Interpretation (test code = Abnormal 90913-1) [facility] ResourcesN-TERMINAL [id number] 09:43:00 Test Item Value Reference Range Interpretation Comments NT-proBNP (test code 1670 pg/mL See_Comment H [Autom ated = 0876946037) message] The system which generated this result transmitted reference range : <=450. The reference range was not used to interpret this result as normal/abnormal . ALYSSA (test code = ALYSSA) Biotin has been reported to cause a negative bias, interpret results relative to patient's use of biotin. Lab Interpretation Abnormal (test code = 42871-9) [facility] (NA, K, CL, CO2, GLUCOSE, BUN, CREATININE, CA)2020-03-02 09:33:00 Test Item Value Reference Range Interpretation Comments NA (test code = 143 mmol/L 135-145 8767165702) K (test code = 3.8 mmol/L 3.5-5 4051845508) CL (test code = 105 mmol/L 98-108 9736662340) CO2 TOTAL (test code = 28 mmol/L 23-31 4552323010) AGAP (test code = 2-16 6797364818) BUN (test code = 19 mg/dL 7-23 4221661403) GLUCOSE (test code = 152 mg/dL 70-110 H 3921311126) CREATININE (test code = 1.18 mg/dL 0.6-1.25 9097593717) CALCIUM (test code = 9.0 mg/dL 8.6-10.6 3988761919) eGFR Calculation mL/min/1.73m2 (Non-) (test code = 5336862304) eGFR Calculation mL/min/1.73m2 () (test code = 2721719901) ALYSSA (test code = ALYSSA) Association of [...] tests). Lab Interpretation Abnormal (test code = 54514-6) [facility] ResourcesMAGNESIUM2020-04-17 09:33:00 Test Item Value Reference Range Interpretation Comments MAGNESIUM (test code = 1990440383) 1.8 mg/dL 1.7-2.4 Lab Interpretation (test code = Normal 65364-2) [facility] ResourcesPOCT GLUCOSE (AUTOMATED)2020-03-01 20:42:00 Test Item Value Reference Range Interpretation Comments POCT GLU (test code = 3940623625) 231 mg/dL 70-110 H Lab Interpretation (test code = Abnormal 52814-7) [facility] ResourcesVITAMIN B12, [id number] 11:51:00 Test Item Value Reference Range Interpretation Comments VIT B12 (test code = 325 pg/mL 240-930 6656710667) ALYSSA (test code = ALYSSA) Biotin has been reported to cause a positive bias, interpret results relative to patient's use of biotin. Lab Interpretation (test Normal code = 49173-8) [facility] ResourcesFOLATE2020-04-16 11:49:00 Test Item Value Reference Range Interpretation Comments FOLATE SER (test code = >20.0 3-20 H Slig ht hemolysis 0870873767) Lab Interpretation (test Abnormal code = 99692-0) [facility] ResourcesPROCALCITONIN2020-04-16 10:49:00 Test Item Value Reference Range Interpretation Comments Procalcitonin (test 3.05 ng/mL <0.07 H code = 0029154078) ALYSSA (test code = ALYSSA) INTERPRETATION OF [...] lung abscess/empyema. For further information please refer to:[email or web address] Lab Interpretation Abnormal (test code = 76333-0) [facility] ResourcesTROPONIN [id number] 09:58:00 Test Item Value Reference Range Interpretation Comments TROPONIN I (test 0.093 ng/mL See_Comment H [Automated code = 4879846603) message] The system which generated this result [...] ? Lab Interpretation Abnormal (test code = 60357-9) [facility] ResourcesN-TERMINAL [id number] 09:55:00 Test Item Value Reference Range Interpretation Comments NT-proBNP (test code 4450 pg/mL See_Comment H [Autom ated = 7232922938) message] The system which generated this result transmitted reference range : <=450. The reference range was not used to interpret this result as normal/abnormal . ALYSSA (test code = ALYSSA) Biotin has been reported to cause a negative bias, interpret results relative to patient's use of biotin. Lab Interpretation Abnormal (test code = 65498-2) [facility] Metabolic Panel (NA, K, CL, CO2, GLUCOSE, BUN, CREATININE, CA)2020-03-01 09:50:00 Test Item Value Reference Range Interpretation Comments NA (test code = 141 mmol/L 135-145 7093854888) K (test code = 3.5 mmol/L 3.5-5 6756241324) CL (test code = 105 mmol/L 98-108 8906120949) CO2 TOTAL (test code = 26 mmol/L 23-31 3291074121) AGAP (test code = 2-16 9542718533) BUN (test code = 13 mg/dL 7-23 2286057545) GLUCOSE (test code = 219 mg/dL 70-110 H 3055899640) CREATININE (test code = 1.01 mg/dL 0.6-1.25 8567375808) CALCIUM (test code = 8.7 mg/dL 8.6-10.6 6375763900) eGFR Calculation mL/min/1.73m2 (Non-) (test code = 0553031647) eGFR Calculation mL/min/1.73m2 () (test code = 8936057380) ALYSSA (test code = ALYSSA) Association of [...] tests). Lab Interpretation Abnormal (test code = 30729-5) [facility] ResourcesMagnesium [id number] 09:50:00 Test Item Value Reference Range Interpretation Comments MAGNESIUM (test code = 5458222917) 1.9 mg/dL 1.7-2.4 Lab Interpretation (test code = Normal 87101-8) [facility] WITH [id number] 09:22:00 Test Item Value Reference Range Interpretation Comments WBC (test code = See_Comment [Automated 3990-2) message] The sy stem which generated this result transmitted reference range : 4.20 - 10.70 10*3/?L. The reference range was not used to interpret this result as normal/abnormal . RBC (test code = See_Comment L [Automated 100-8) message] The sy stem which generated this [...] RDW-SD (test code = 47.8 fL 38.5-51.6 18619-1) RDW-CV (test code = 14.8 % 12.1-15.4 788-0) PLT (test code = See_Comment L [Automated 777-3) message] The sy stem which generated this result transmitted reference range : 150 - 328 10*3/ ?L. The reference r corey was not used to interpret this result as normal/abnormal . MPV (test code = 9.9 fL 9.8-13 20405-0) NRBC/100 WBC (test See_Comment [Automat ed code = 0915885288) message] The system which generated this result transmitted reference range : 0.0 - 10.0 /100 WBCs. The refer ence range was not u sed to interpret th is result as normal/abnormal . NRBC x10^3 (test code <0.01 See_Comment [Auto mated = 3981047056) message] The s ystem which generated this result transmitted reference range : 10*3/?L. The reference range was not used to interpret this result as normal/abnormal . GRAN MAT (NEUT) % 66.0 % (test code = 770-8) IMM GRAN % (test code 0.30 % = 4800977046) LYMPH % (test code = 20.8 % 736-9) MONO % (test code = 9.5 % 5905-5) EOS % (test code = 2.8 % 713-8) BASO % (test code = 0.6 % 706-2) GRAN MAT x10^3(ANC) 4.44 10*3/uL 1.99-6.95 (test code = 3379809420) IMM GRAN x10^3 (test <0.03 0-0.06 code = 3899552168) LYMPH x10^3 (test code 1.40 10*3/uL 1.09-3.23 = 731-0) MONO x10^3 (test code 0.64 10*3/uL 0.36-1.02 = 742-7) EOS x10^3 (test code = 0.19 10*3/uL 0.06-0.53 711-2) BASO x10^3 (test code 0.04 10*3/uL 0.01-0.09 = 704-7) Lab Interpretation Abnormal (test code = 74898-9) [facility] ResourcesGLYCOSYLATED HEMOGLOBIN (A1C)2020-03-01 06:49:00 Test Item Value Reference [...] Indicated Lab Interpretation Abnormal (test code = 04200-9) [facility] ResourcesURIC [id number] 06:25:00 Test Item Value Reference Range Interpretation Comments URIC ACID (test code = 4325263172) 2.3 mg/dL 3.6-8 L Lab Interpretation (test code = Abnormal 07857-4) [facility] ResourcesSEDIMENTATION [id number] 05:25:00 Test Item Value Reference Range Interpretation Comments ESR (test code = See_Comment H [Automated message] 6585403424) The system [employer] generated this result transmitted ref erence range: 0 - 10 m m/HR. The reference r corey was not used to interpret this result as normal/abnor mal. Lab Interpretation (test Abnormal code = 87572-8) [facility] ResourcesN-TERMINAL [id number] 04:07:00 Test Item Value Reference Range Interpretation Comments NT-proBNP (test code 4080 pg/mL See_Comment H [Autom ated = 0091124927) message] The system which generated this result transmitted reference range : <=450. The reference range was not used to interpret this result as normal/abnormal . ALYSSA (test code = ALYSSA) Biotin has been reported to cause a negative bias, interpret results relative to patient's use of biotin. Lab Interpretation Abnormal (test code = 49839-7) [facility] ResourcesPOCT GLUCOSE (AUTOMATED)2020-03-01 03:42:00 Test Item Value Reference Range Interpretation Comments POCT GLU (test code = 2428824902) 190 mg/dL 70-110 H Lab Interpretation (test code = Abnormal 10811-9) [facility] ResourcesTRNELIDAN [id number] 03:30:00 Test Item Value Reference Range Interpretation Comments TROPONIN I (test 0.098 ng/mL See_Comment H [Automated code = 2458958739) message] The system which generated this result [...] ? Lab Interpretation Abnormal (test code = 86481-8) [facility] ResourcesHEPATIC FUNCTION PANEL (04984) (ALB,T.PRO,BILI T,BU/BC,ALT,AST,ALK PHOS)2020-03-01 03:24:00 Test Item Value Reference Range Interpretation Comments TOTAL BILI (test code = 8767800704) 2.2 mg/dL 0.1-1.1 H BILI UNCON (test code = 1603217917) 2.0 mg/dL 0.1-1.1 H BILI CONJ (test code = 1861291403) 0.0 mg/dL 0-0.3 T PROTEIN (test code = 2145690518) 6.7 g/dL 6.3-8.2 ALBUMIN (test code = 6952182988) 4.0 g/dL 3.5-5 ALK PHOS (test code = 0711100277) 48 U/L 34-122 ALTv (test code = 1742-6) 18 U/L 5-50 AST(SGOT) (test code = 7527502664) 57 U/L 13-40 H Lab Interpretation (test code = Abnormal 05397-9) [facility] ResourcesPhosphorus [id number] 03:17:00 Test Item Value Reference Range Interpretation Comments PHOSPHORUS (test code = 3.1 mg/dL 2.5-5 Slig ht hemolysis 7604225455) Lab Interpretation (test Normal code = 79247-8) [facility] ResourcesPROTHROMBIN TIME / [id number] 03:08:00 Test Item Value Reference Range Interpretation Comments PROTIME PATIENT (test See_Comment [Auto mated message] code = 5964-2) The system [employer] generated this result transmitted ref erence range: 12.0 - 1 4.7 Seconds. The re ference range was not u sed to interpret this result as normal/abnor mal. INR (test code = 6301-6) Nor mal INR <1.1; Warfarin Therap eutic range 2.0 to 3. 0 or 2.5 to 3.5, dep ending upon the indica tions. Lab Interpretation (test Normal code = 36838-0) [facility] ResourcesCREATINE [id number] 03:01:00 Test Item Value Reference Range Interpretation Comments CK (test code = 8905438191) 68 U/L 33-194 Lab Interpretation (test code = Normal 88752-1) [facility] ResourcesURIC [id number] 02:41:00 Test Item Value Reference Range Interpretation Comments URIC ACID (test code = 7079490332) 2.3 mg/dL 3.6-8 L Lab Interpretation (test code = Abnormal 62273-4) [facility] ResourcesTHYROID STIMULATING [id number] 02:26:00 Test Item Value Reference Range Interpretation Comments TSH (test code = See_Comment [Automated message] 4824018772) The system [employer] generated this result transmitted ref erence range: 0.45 - 4 .70 mIU/L. The refe rence range was not u sed to interpret this result as normal/abnor mal. Lab Interpretation (test Normal code = 61572-0) [facility] ResourcesN-TERMINAL [id number] 02:04:00 Test Item Value Reference Range Interpretation Comments NT-proBNP (test code 4390 pg/mL See_Comment H [Autom ated = 2391378544) message] The system which generated this result transmitted reference range : <=450. The reference range was not used to interpret this result as normal/abnormal . ALYSSA (test code = ALYSSA) Biotin has been reported to cause a negative bias, interpret results relative to patient's use of biotin. Lab Interpretation Abnormal (test code = 34993-4) [facility] ResourcesMAGNESIUM2020-04-16 02:01:00 Test Item Value Reference Range Interpretation Comments MAGNESIUM (test code = 8417681187) 1.5 mg/dL 1.7-2.4 L Lab Interpretation (test code = Abnormal 06989-7) [facility] ResourcesLIPASE2020-04-16 00:22:00 Test Item Value Reference Range Interpretation Comments LIPASE (test code = 2631575634) 68 U/L 0-220 Lab Interpretation (test code = Normal 57264-0) [facility] ResourcesCORONAVIRUS COVID-19 [id number] 23:42:00 Test Item Value Reference Range Interpretation Comments SARS-CoV-2 (test code = Not Detected Not Detected 13109-5) ALYSSA (test code = ALYSSA) ID NOW COVID-19 Assay is an isothermal nucleic acid amplification test intended for the qualitative detection of nucleic acid from SARS-CoV-2 viral RNA in nasopharyngeal (HEALTH CLINICIAN) specimens. It is used under Emergency Use [...] indicated. Lab Interpretation Normal (test code = 22584-6) [facility] ResourcesXR CHEST 1 VW [id number] 23:26:02 No acute intrathoracic abnormality, specifically no radiographic findingsto suggest COVID-19 pneumonia. Disclaimer: Generally, the findings on chest imaging in COVID-19 are notspecific, and overlap with other infections, including influenza, H1N1,SARS and MERS. According to the Centers for Disease Control (CDC) and recent statement ofthe [employer], viral testing remains the [...] stimulating device overlie the mid thoracic spine. [facility], Radiant ResultsInft User - 02/29/2020 [...] Disease Control (CDC) and recent statement ofthe [employer], viral testing remains the only specificmethod of diagnosis. Confirmation with the viral test is required, even ifradiologic findings are suggestive of COVID-[address] Preliminary Report Dictated by Resident: Radu Boo MD., have reviewed this study and agree with theabovereport.[facility] ResourcesTrnelidan [id number] 22:59:00 Test Item Value Reference Range Interpretation Comments TROPONIN I (test 0.071 ng/mL See_Comment H [Automated code = 0697084872) message] The system which generated this result [...] ? Lab Interpretation Abnormal (test code = 80013-9) [facility] ResourcesBasi Metabolic Panel (NA, K, CL, CO2, GLUCOSE, BUN, CREATININE, CA)2020-02-29 22:48:00 Test Item Value Reference Range Interpretation Comments NA (test code = 141 mmol/L 135-145 8039184262) K (test code = 3.2 mmol/L 3.5-5 L 1533345349) CL (test code = 104 mmol/L 98-108 5126434959) CO2 TOTAL (test code = 25 mmol/L 23-31 8621856203) AGAP (test code = 2-16 7410250039) BUN (test code = 12 mg/dL 7- 8030410055) GLUCOSE (test code = 250 mg/dL 70-110 H 1868625295) CREATININE (test code = 1.02 mg/dL 0.6-1.25 7203222658) CALCIUM (test code = 8.9 mg/dL 8.6-10.6 5035449373) eGFR Calculation mL/min/1.73m2 (Non-) (test code = 3517435262) eGFR Calculation mL/min/1.73m2 () (test code = 4983731379) ALYSSA (test code = ALYSSA) Association of [...] tests). Lab Interpretation Abnormal (test code = 73594-9) [facility] WITH [id number] 22:41:00 Test Item Value Reference Range Interpretation [...] RDW-SD (test code = 46.6 fL 38.5-51.6 35025-7) RDW-CV (test code = 14.6 % 12.1-15.4 788-0) PLT (test code = See_Comment [Automated 777-3) message] The sy stem which generated this result transmitted reference range : 150 - 328 10*3/ ?L. The reference r corey was not used to interpret this result as normal/abnormal . MPV (test code = 9.7 fL 9.8-13 L 18343-1) NRBC/100 WBC (test See_Comment [Automat ed code = 0354836739) message] The system which generated this result transmitted reference range : 0.0 - 10.0 /100 WBCs. The refer ence range was not u sed to interpret th is result as normal/abnormal . NRBC x10^3 (test code <0.01 See_Comment [Auto mated = 6632723450) message] The s ystem which generated this result transmitted reference range : 10*3/?L. The reference range was not used to interpret this result as normal/abnormal . GRAN MAT (NEUT) % 68.6 % (test code = 770-8) IMM GRAN % (test code 0.30 % = 5627713090) LYMPH % (test code = 18.6 % 736-9) MONO % (test code = 10.1 % 5905-5) EOS % (test code = 1.8 % 713-8) BASO % (test code = 0.6 % 706-2) GRAN MAT x10^3(ANC) 4.29 10*3/uL 1.99-6.95 (test code = 3085676131) IMM GRAN x10^3 (test <0.03 0-0.06 code = 4497464908) LYMPH x10^3 (test code 1.16 10*3/uL 1.09-3.23 = 731-0) MONO x10^3 (test code 0.63 10*3/uL 0.36-1.02 = 742-7) EOS x10^3 (test code = 0.11 10*3/uL 0.06-0.53 711-2) BASO x10^3 (test code 0.04 10*3/uL 0.01-0.09 = 704-7) Lab Interpretation Abnormal (test code = 97226-1) [facility] ResourcesLanhic Acid Whole [id number] 22:38:00 Test Item Value Reference Range Interpretation Comments LACTIC ACID (test code = 1.88 mmol/L 0.3-2.6 6474516403) [facility] ResourcesPOAR GLUCOSE (AUTOMATED)2020-01-17 18:18:00 Test Item Value Reference Range Interpretation Comments POCT GLU (test code = 2091178690) 290 mg/dL 70-110 H Lab Interpretation (test code = Abnormal 31280-0) [facility] ResourcesTROPONIN [id number] 18:01:00 Test Item Value Reference Range Interpretation Comments TROPONIN I (test 0.065 ng/mL See_Comment H [Automated code = 4554286873) message] The system which generated this result [...] ? Lab Interpretation Abnormal (test code = 44770-5) [facility] ResourcesaPTT2020-03-03 17:10:00 Test Item Value Reference Range Interpretation Comments APTT Patient (test See_Comment H [Automat ed code = 3173-2) message] The system which generated this result transmitted reference range : 23 - 38 Seconds . The reference range was not used to interpr et this result as normal/abnormal . ALYSSA (test code = ALYSSA) The [facility] patient population mean normal value for aPTT is 30 seconds. Lab Interpretation Abnormal (test code = 21626-8) [facility] ResourcesPOCT GLUCOSE (AUTOMATED)2020-01-17 11:59:00 Test Item Value Reference Range Interpretation Comments POCT GLU (test code = 9831959796) 185 mg/dL 70-110 H Lab Interpretation (test code = Abnormal 20093-4) [facility] ResourcesTROPONIN [id number] 11:23:00 Test Item Value Reference Range Interpretation Comments TROPONIN I (test 0.073 ng/mL See_Comment H [Automated code = 8124122385) message] The system which generated this result [...] ? Lab Interpretation Abnormal (test code = 88984-8) [facility] ResourcesBasaint [facility] Metabolic Panel (NA, K, CL, CO2, GLUCOSE, BUN, CREATININE, CA)2020-01-17 11:16:00 Test Item Value Reference Range Interpretation Comments NA (test code = 136 mmol/L 135-145 1779653457) K (test code = 3.3 mmol/L 3.5-5 L 5884925845) CL (test code = 101 mmol/L 98-108 0765061056) CO2 TOTAL (test code = 26 mmol/L 23-31 9772348838) AGAP (test code = 2-16 5015832695) BUN (test code = 19 mg/dL 7-23 9318778057) GLUCOSE (test code = 227 mg/dL 70-110 H 6496200766) CREATININE (test code = 1.33 mg/dL 0.6-1.25 H 7131542445) CALCIUM (test code = 9.1 mg/dL 8.6-10.6 9288945098) eGFR Calculation mL/min/1.73m2 (Non-) (test code = 8594226428) eGFR Calculation mL/min/1.73m2 () (test code = 6201215082) ALYSSA (test code = ALYSSA) Association of [...] tests). Lab Interpretation Abnormal (test code = 44558-6) [facility] ResourcesaPTT2020-03-03 11:00:00 Test Item Value Reference Range Interpretation Comments APTT Patient (test See_Comment H [Automat ed code = 3173-2) message] The system which generated this result transmitted reference range : 23 - 38 Seconds . The reference range was not used to interpr et this result as normal/abnormal . ALYSSA (test code = ALYSSA) The [facility] patient population mean normal value for aPTT is 30 seconds. Lab Interpretation Abnormal (test code = 44880-8) [facility] ResourcesCBC WITH [id number] 10:43:00 Test Item Value Reference Range Interpretation Comments WBC (test code = See_Comment [Automated message] 6690-2) The system [employer] generated this result transmitted ref erence range: 4.20 - 1 0.70 10*3/?L. The re ference range was not u sed to interpret this result as normal/abnor mal. RBC (test code = See_Comment [Automated message] 789-8) The system [employer] generated this result transmitted ref erence range: [...] RDW-SD (test code 41.5 fL 38.5-51.6 = 33849-3) RDW-CV (test code 12.8 % 12.1-15.4 = 788-0) PLT (test code = See_Comment [Automated message] 777-3) The system [employer] generated this result transmitted ref erence range: 150 - 32 8 10*3/?L. The re ference range was not u sed to interpret this result as normal/abnor mal. MPV (test code = 10.7 fL 9.8-13 07637-8) NRBC/100 WBC (test See_Comment [Automat ed message] code = 3034701664) The syste m which generated this result transmitted ref erence range: 0.0 - 10 .0 /100 WBCs. The refer ence range was not u sed to interpret this result as normal/abnor mal. NRBC x10^3 (test <0.01 See_Comment [Automated message] code = 1949842882) The syste m which generated this result transmitted ref erence range: 10*3/?L. The reference range was not used to interpr et this result as normal/abnormal . GRAN MAT (NEUT) % 56.1 % (test code = 770-8) IMM GRAN % (test 0.30 % code = 7968325272) LYMPH % (test code 29.5 % = 736-9) MONO % (test code 9.9 % = 5905-5) EOS % (test code = 3.3 % 713-8) BASO % (test code 0.9 % = 706-2) GRAN MAT 3.73 10*3/uL 1.99-6.95 x10^3(ANC) (test code = 1647410348) IMM GRAN x10^3 <0.03 0-0.06 (test code = 3118990410) LYMPH x10^3 (test 1.96 10*3/uL 1.09-3.23 code = 731-0) MONO x10^3 (test 0.66 10*3/uL 0.36-1.02 code = 742-7) EOS x10^3 (test 0.22 10*3/uL 0.06-0.53 code = 711-2) BASO x10^3 (test 0.06 10*3/uL 0.01-0.09 code = 704-7) [facility] GLUCOSE (AUTOMATED)2020-01-17 01:49:00 Test Item Value Reference Range Interpretation Comments POCT GLU (test code = 5242793500) 305 mg/dL 70-110 H Lab Interpretation (test code = Abnormal 30573-6) [facility] GLUCOSE (AUTOMATED)2020-01-17 00:01:00 Test Item Value Reference Range Interpretation Comments POCT GLU (test code = 7326014064) 271 mg/dL 70-110 H Lab Interpretation (test code = Abnormal 46961-3) [facility] ResourcesaPTT2020-03-02 22:23:00 Test Item Value Reference Range Interpretation Comments APTT Patient (test See_Comment H [Automat ed code = 3173-2) message] The system which generated this result transmitted reference range : 23 - 38 Seconds . The reference range was not used to interpr et this result as normal/abnormal . ALYSSA (test code = ALYSSA) The [facility] patient population mean normal value for aPTT is 30 seconds. Lab Interpretation Abnormal (test code = 98408-6) [facility] ResourcesTROPONIN [id number] 21:22:00 Test Item Value Reference Range Interpretation Comments TROPONIN I (test 0.061 ng/mL See_Comment H [Automated code = 8960022989) message] The system which generated this result [...] ? Lab Interpretation Abnormal (test code = 37557-6) [facility] ResourcesPOCT GLUCOSE (AUTOMATED)2020-01-16 17:37:00 Test Item Value Reference Range Interpretation Comments POCT GLU (test code = 0907468560) 271 mg/dL 70-110 H Lab Interpretation (test code = Abnormal 99970-9) [facility] ResourcesaPTT2020-03-02 12:47:00 Test Item Value Reference Range Interpretation Comments APTT Patient (test See_Comment HH [Automat ed code = 3173-2) message] The system which generated this result transmitted reference range : 23 - 38 Seconds . The reference range was not used to interpr et this result as normal/abnormal . ALYSSA (test code = ALYSSA) The [facility] patient population mean normal value for aPTT is 30 seconds. Lab Interpretation Abnormal (test code = 44657-3) [facility] ResourcesTROPONIN [id number] 12:35:00 Test Item Value Reference Range Interpretation Comments TROPONIN I (test 0.074 ng/mL See_Comment H [Automated code = 8168782895) message] The system which generated this result [...] ? Lab Interpretation Abnormal (test code = 85825-7) [facility] ResourcesLIPID PANEL (35762)(TOTAL CHOLESTEROL, TRIGLYCERIDES, HDL)2020-01-16 12:23:00 Test Item Value Reference Range Interpretation Comments CHOL (test code = 95 mg/dL 120-200 L 1072734776) HDL (test code = 44 mg/dL >40 1946142837) HDLC RATIO (test code = See_Comment [Au tomated message] 2385414288) The system [employer] generated this result transmitted ref erence range: <=5.0. T he reference range was not used to int erpret this result as normal/abnormal . TRIG (test code = 89 mg/dL 30-170 5771183645) LDL CHOL (test code = 33 mg/dL See_Comment [Auto mated message] 49198-9) The system [employer] generated this result transmitted ref erence range: <=160. T he reference range was not used to int erpret this result as normal/abnormal . VLDL (test code = 18 mg/dL 5-60 4486195782) Lab Interpretation (test Abnormal code = 54971-5) [facility] ResourcesGlycosylated Hemoglobin (A1C)2020-01-16 09:03:00 Test Item Value Reference [...] Indicated Lab Interpretation Abnormal (test code = 87155-0) [facility] ResourcesCritical [id number] 05:48:18NeCharanjit epps MD ? ? 01/15/2020 11:48 [...] [facility]kinProthrombin Time (PT) / [id number] 05:28:00 Test Item Value Reference Range Interpretation [...] tions. Lab Interpretation (test Normal code = 51268-7) [facility] ResourcesaPTT2020-03-02 05:27:00 Test Item Value Reference Range Interpretation Comments APTT Patient (test See_Comment [Automat ed code = 3173-2) message] The system which generated this result transmitted reference range : 23 - 38 Seconds . The reference range was not used to interpr et this result as normal/abnormal . ALYSSA (test code = ALYSSA) The [facility] patient population mean normal value for aPTT is 30 seconds. Lab Interpretation Normal (test code = 70249-2) [facility] ResourcesTroponin [id number] 05:11:00 Test Item Value Reference Range Interpretation Comments TROPONIN I (test 0.075 ng/mL See_Comment H [Automated code = 2626111892) message] The system which generated this result [...] ? Lab Interpretation Abnormal (test code = 34596-1) [facility] ResourcesN-TERMINAL [id number] 05:08:00 Test Item Value Reference Range Interpretation Comments NT-proBNP (test code 896 pg/mL See_Comment H [Autom ated = 0254230617) message] The system which generated this result transmitted reference range : <=450. The reference range was not used to interpret this result as normal/abnormal . ALYSSA (test code = ALYSSA) Biotin has been reported to cause a negative bias, interpret results relative to patient's use of biotin. Lab Interpretation Abnormal (test code = 25012-2) [facility] Metabolic Panel (NA, K, CL, CO2, GLUCOSE, BUN, CREATININE, CA)2020-01-16 04:59:00 Test Item Value Reference Range Interpretation Comments NA (test code = 136 mmol/L 135-145 0087944911) K (test code = 4.0 mmol/L 3.5-5 7886539641) CL (test code = 101 mmol/L 98-108 8757838020) CO2 TOTAL (test code = 27 mmol/L 23-31 5651762865) AGAP (test code = 2-16 4611263051) BUN (test code = 17 mg/dL 7-23 5339308716) GLUCOSE (test code = 445 mg/dL 70-110 H 5628603716) CREATININE (test code = 1.29 mg/dL 0.6-1.25 H 7358186829) CALCIUM (test code = 8.8 mg/dL 8.6-10.6 4386867897) eGFR Calculation mL/min/1.73m2 (Non-) (test code = 3472267380) eGFR Calculation mL/min/1.73m2 () (test code = 1664921549) ALYSSA (test code = ALYSSA) Association of [...] tests). Lab Interpretation Abnormal (test code = 96255-8) [facility] ResourcesHepatic Function Panel (ALB, T.PRO, BILI T, BU/BC, ALT, AST, ALK PHOS)2020-01-16 04:59:00 Test Item Value Reference Range Interpretation Comments TOTAL BILI (test code = 6129448585) 1.3 mg/dL 0.1-1.1 H BILI UNCON (test code = 7175995533) 1.1 mg/dL 0.1-1.1 BILI CONJ (test code = 5253537997) 0.0 mg/dL 0-0.3 T PROTEIN (test code = 3972122654) 6.3 g/dL 6.3-8.2 ALBUMIN (test code = 8811683498) 3.9 g/dL 3.5-5 ALK PHOS (test code = 6780730164) 67 U/L 34-122 ALTv (test code = 1742-6) 15 U/L 5-50 AST(SGOT) (test code = 2527679045) 23 U/L 13-40 Lab Interpretation (test code = Abnormal 67207-5) [facility] ResourcesChes 1 [id number] 04:54:13Impression: Moderate cardiomegaly without acute pulmonary process. RL: 460 AFC: [id number] Indication: Chest pain Comparison: None available Findings: Single AP view of the chest. The cardiopericardial silhouette ismoderately enlarged. The lungs are clear bilaterally. The visualized bonythorax is intact. A thoracic neurostimulator device is in place. [facility], Radiant Results Inft User - 01/15/2020 10:55 PM CSTIndication: Chest painComparison: None availableFindings: Single AP view of the chest. The cardiopericardial silhouette ismoderately enlarged. The lungs are clear bilaterally. The visualized bonythorax is intact. A thoracic neurostimulator device is in place.IMPRESSIONImpression:Moderate cardiomegaly without acute pulmonary process.RL: 460AFC: [id number] signed by Esperanza Rosado MD, PhD at 01/15/2020 10:54 PMUnSt. Luke[facility] Health – Memorial LufkinCB WITH [id number] 04:51:00 Test Item Value Reference Range Interpretation [...] RDW-SD (test code = 40.7 fL 38.5-51.6 86287-9) RDW-CV (test code = 12.8 % 12.1-15.4 788-0) PLT (test code = See_Comment L [Automated 777-3) message] The sy stem which generated this result transmitted reference range : 150 - 328 10*3/ ?L. The reference r corey was not used to interpret this result as normal/abnormal . MPV (test code = 10.6 fL 9.8-13 41387-0) IPF % (test code = 2.8 % 1.2-10.7 Platelet count 3579277557) measured by fluorescence method. NRBC/100 WBC (test See_Comment [Automat ed code = 2284576205) message] The system which generated this result transmitted reference range : 0.0 - 10.0 /100 WBCs. The refer ence range was not u sed to interpret th is result as normal/abnormal . NRBC x10^3 (test code <0.01 See_Comment [Auto mated = 6018329566) message] The s ystem which generated this result transmitted reference range : 10*3/?L. The reference range was not used to interpret this result as normal/abnormal . GRAN MAT (NEUT) % 56.0 % (test code = 770-8) IMM GRAN % (test code 0.20 % = 9550923577) LYMPH % (test code = 30.5 % 736-9) MONO % (test code = 9.6 % 5905-5) EOS % (test code = 2.8 % 713-8) BASO % (test code = 0.9 % 706-2) GRAN MAT x10^3(ANC) 2.98 10*3/uL 1.99-6.95 (test code = 5367077536) IMM GRAN x10^3 (test <0.03 0-0.06 code = 0632649803) LYMPH x10^3 (test code 1.62 10*3/uL 1.09-3.23 = 731-0) MONO x10^3 (test code 0.51 10*3/uL 0.36-1.02 = 742-7) EOS x10^3 (test code = 0.15 10*3/uL 0.06-0.53 711-2) BASO x10^3 (test code 0.05 10*3/uL 0.01-0.09 = 704-7) Lab Interpretation Abnormal (test code = 81247-0) [facility]"
[2021-12-18 17:08] LABS: Absolute Lymphocytes (CBC) 1.1 K/uL (0.7-4.9); Hematocrit 34.4 % (39.6-49.0); Lymphocytes % 19.5 % (15.3-44.8); MPV 8.2 fL (7.6-11.3); RBC Red Blood Cell Count 3.67 M/uL (4.33-5.43)
[2021-12-18 17:11] LABS: Protime INR 0.97
--- NOTE | 2021-12-18 18:20 | RAD REPORT ---
EXAM DESCRIPTION: RAD - Chest Single View - 12/18/2021 5:47 pm CLINICAL HISTORY: CHEST PAIN COMPARISON: Portable December 03 TECHNIQUE: AP portable chest image was obtained 12/18/2021 5:47 pm . FINDINGS: Lung volumes are low. No new mass or consolidation. Interstitial pattern is not clearly di fferent. Heart and vasculature are normal. No measurable pleural effusion and no pneumothorax. No acu te bony abnormality seen. No acute aortic findings suspected. IMPRESSION: No acute cardiopulmonary process. No significant change from comparison study.
--- NOTE | 2021-12-18 18:23 | RAD REPORT ---
EXAM DESCRIPTION: RAD - Lumbar Spine 3 Views - 12/18/2021 5:47 pm CLINICAL HISTORY: PAIN COMPARISON: Stone Protocol dated 11/30/2021 FINDINGS: A three-view lumbar spine examination was performed. Lumbar bodies are normal in height. Alignment is similar to the November 30 study. Pedicle screws and rods are in place spanning L3-L5. No hardware abnormality seen. Slight anterior subluxation of L4 on L5 has not changed. Significant T12-L1 degenerative disc disease is present with degenerative gas present. There is loss in height and large anterior spurring changes. Posterior endplate spurs are present. L2-3 disc space is narrowed slightly. There is significant disc space narrowing and degenerative change to the endpla keegan at L5-S1. An acute or pathologic lumbar spine finding is not identified. SI joint degenerative changes are pres ent. Neurostimulator device is in place entering the central canal at the T12-L1 level and extending superiorly to the T9-10 level of the central canal. Dense aortoiliac atherosclerotic calcifications are present. IMPRESSION: Extensive degenerative and postsurgical changes are present in the lumbar spine as detai led. No acute findings seen. No significant change from the CT imaging of November 30.
[2021-12-18] MEDS ORDERED: HYDROCODONE/APAP 5/325 MG TAB ONE (18:48)
--- NOTE | 2021-12-18 18:53 | EDPHYS ---
Physician Documentation [facility] Name: Demetrius Sarmiento Age: 81 yrs Sex: Male : 1940 Arrival Date: 12/18/2021 Time: 16:24 Bed 7 Private MD: ED Physician Jose Ferguson HPI: 12/18 17:14 This 81 yrs old Male presents to ER via EMS with complaints of Chest pain. ma2 17:14 Onset: gradually, 1 day(s) ago. Associated signs and symptoms: Pertinent negatives: ma2 cough, headache, lower extremity pain, lightheadedness, nausea. Severity of pain: At its worst the pain was moderate in the emergency department the pain is unchanged. The patient has experienced similar episodes in the past. Historical: - Home Meds: 16:28 aspirin 81 mg Oral TbEC 1 tab once daily [Active]; atorvastatin 40 mg Oral tab 1 tab ap3 nightly [Active]; donepezil 5 mg Oral tab 1 tab nightly [Active]; furosemide 20 mg Oral tab 1 tab once daily [Active]; isosorbide mononitrate 60 mg Oral Tb24 1.5 tabs once daily [Active]; isosorbide mononitrate 120 mg Oral Tb24 1 tab once daily [Active]; Januvia 50 mg Oral tab 1 tab once daily [Active]; lisinopril 5 mg Oral tab 1 tab once daily [Active]; potassium chloride 10 mEq Oral TbER 1 tab once daily [Active]; - PMHx: 16:28 CAD; cardiac arrest; CHF; chronic kidney disease; Chronic pain; Diabetes - IDDM; High ap3 Cholesterol; Hypertension; Myocardial infarction; - Immunization history:: Client reports receiving the 2nd dose of the Covid vaccine, Pneumococcal vaccine is not up to date, Flu vaccine is up to date. - Social history:: Smoking status: Patient denies any tobacco usage or history of. Patient/guardian denies using alcohol, street drugs, The patient lives with family. - Family history:: not pertinent. ROS: 17:14 Constitutional: Negative for fever, chills, and weight loss. ma2 17:14 All other systems are negative. Exam: 17:14 Constitutional: This is a well developed, well nourished patient who is awake, alert, ma2 and in no acute distress. Chest/axilla: Normal chest wall appearance and motion. Nontender with no deformity. No lesions are appreciated. Cardiovascular: Regular rate and rhythm with a normal S1 and S2. No gallops, murmurs, or rubs. Normal PMI, no JVD. No pulse deficits. Respiratory: Lungs have equal breath sounds bilaterally, clear to auscultation and percussion. No rales, rhonchi or wheezes noted. No increased work of breathing, no retractions or nasal flaring. Abdomen/GI: Soft, non-tender, with normal bowel sounds. No distension or tympany. No guarding or rebound. No evidence of tenderness throughout. Skin: Warm, dry with normal turgor. Normal color with no rashes, no lesions, and no evidence of cellulitis. MS/ Extremity: Pulses equal, no cyanosis. Neurovascular intact. Full, normal range of motion. Neuro: Awake and alert, GCS 15, oriented to person, place, time, and situation. Cranial nerves II-XII grossly intact. Motor strength 5/5 in all extremities. Sensory grossly intact. Cerebellar exam normal. Normal gait. Vital Signs: 16:25 BP 135 / 82; Pulse 88; Resp 16; Temp 97.4; Pulse Ox 96% on R/A; Weight 78.02 kg; Height ap3 5 ft. 7 in. (170.18 cm); Pain 4/10; 17:17 BP 135 / 77; Pulse 71; Resp 17; Pulse Ox 100% ; ap3 17:59 BP 129 / 65; Pulse 80; Pulse Ox 97% on R/A; ap3 18:35 BP 140 / 82; Pulse 63; Resp 19; Pulse Ox 98% on R/A; ap3 20:56 BP 132 / 57; Pulse 60; Resp 16; Pulse Ox 96% on R/A; st1 16:25 Body Mass Index 26.94 (78.02 kg, 170.18 cm) ap3 MDM: 16:25 Patient medically screened. dc2 17:14 Differential diagnosis: abnormal EKG, esophagitis, gastritis, gastroesophageal reflux dc2 disease (GERD), pneumonia. 18:51 HEART Score: History: ECG: Age: Risk Factors:. The patient was given aspirin in the [facility] Emergency Department. Data reviewed: vital signs, nurses notes, EMS record. Counseling: I had a detailed discussion with the patient and/or guardian regarding: the historical points, exam findings, and any diagnostic results supporting the discharge/admit diagnosis, the presence of at least one elevated blood pressure reading (>120/80) during this emergency department visit, lab results, radiology results, the need for further work-up and treatment in the hospital. 12/18 16:50 Order name: Basic Metabolic Panel [facility] 12/18 16:50 Order name: CBC with Diff; Complete Time: 18:14 [facility] 12/18 16:50 Order name: LFT's [facility] 12/18 16:50 Order name: Magnesium [facility] 12/18 16:50 Order name: NT PRO-BNP [facility] 12/18 16:50 Order name: PT-INR; Complete Time: 18:14 [facility] 12/18 16:34 Order name: XRAY Lumbar Spine (3 Views); Complete Time: 18:30 [facility] 12/18 16:50 Order name: Troponin HS [facility] 12/18 16:50 Order name: XRAY Chest (1 view); Complete Time: 18:30 [facility] 12/18 16:50 Order name: SARS-COV-2 RT PCR (Document "Date of Onset" if Symptomatic); Complete Time: ma2 18:30 12/18 16:51 Order name: Basic Metabolic Panel [facility] 12/18 16:50 Order name: EKG; Complete Time: 16:51 dc2 12/18 16:50 Order name: Cardiac monitoring; Complete Time: 16:55 dc2 12/18 16:50 Order name: EKG - Nurse/Tech; Complete Time: 16:55 dc2 12/18 16:50 Order name: IV Saline Lock; Complete Time: 16:55 dc2 12/18 16:50 Order name: Labs collected and sent; Complete Time: 16:55 dc2 12/18 16:50 Order name: O2 Per Protocol; Complete Time: 16:55 dc2 12/18 16:50 Order name: O2 Sat Monitoring; Complete Time: 16:55 ma2 Administered Medications: 18:46 CANCELLED (Duplicate Order): Aspirin Chewable Tablet 324 mg PO once; 81 mg tablets x 4 la1 18:48 Drug: HYDROcodone-acetaminophen 5 mg-325 mg 1 tabs Route: PO; ap3 19:03 Not Given (previously givee): Aspirin Chewable Tablet 324 mg PO once; 81 mg tablets x 4 ap3 Disposition Summary: 12/18/21 18:52 Hospitalization Ordered Hospitalization Status: Observation ma2 Provider: Gadiel Anderson ma2 Location: Telemetry/MedSurg (observation) ma2 Condition: Stable ma2 Problem: new ma2 Symptoms: are unchanged ma2 Bed/Room Type: Standard dc2 Room Assignment: 207(12/18/21 19:51) eb1 Diagnosis - Chest pain, unspecified ma2 Forms: - Medication Reconciliation Form ma2 - SBAR form ma2 Signatures: Dispatcher [employer] EDDayo Sandoval, STORY WRITER-C STORY WRITER-Cla1 Jose Ferguson MD MD ma2 Ruchi Garcia RN HERBIE ap3 Yamilet Herrera RN RN eb1 Santa Stevens RN RN ke1 Corrections: (The following items were deleted from the chart) 18:46 18:42 Aspirin Chewable Tablet 324 mg PO once; 81 mg tablets x 4 ordered. ap3 la1 19:51 18:52 ma2 eb1
--- NOTE | 2021-12-18 18:53 | ER ---
Nurse's Notes [facility] Name: Demetrius Sarmiento Age: 81 yrs Sex: Male : 1940 Arrival Date: 12/18/2021 Time: 16:24 Bed 7 Private MD: Diagnosis: Chest pain, unspecified Presentation: 12/18 16:25 Chief complaint: EMS states: they were called to the patients home for a complaint of ap3 low back pain. Upon their arrival, the patient stated the pain had improved. Coronavirus screen: At this time, the client does not indicate any symptoms associated with coronavirus-19. Ebola Screen: No symptoms or risks identified at this time. Initial Sepsis Screen: Does the patient meet any 2 criteria? No. Patient's initial sepsis screen is negative. Does the patient have a suspected source of infection? No. Patient's initial sepsis screen is negative. Risk Assessment: Do you want to hurt yourself or someone else? Patient reports no desire to harm self or others. Onset of symptoms was December 18, 2021. Care prior to arrival: IV initiated. 20 GA, in the left antecubital area. 16:25 Method Of Arrival: [facility] ap3 16:25 Acuity: LANCE 4 ap3 Triage Assessment: 16:29 General: Appears in no apparent distress. comfortable, Behavior is calm, cooperative, ap3 appropriate for age. Pain: Complains of pain in back-diffuse Pain currently is 4 out of 10 on a pain scale. Neuro: Level of Consciousness is awake, alert, obeys commands, Oriented to person, place, time, situation, Appropriate for age Speech is normal. Respiratory: Airway is patent Respiratory effort is even, unlabored, Respiratory pattern is regular, symmetrical. Musculoskeletal: Reports pain in back. Historical: - Home Meds: 16:28 aspirin 81 mg Oral TbEC 1 tab once daily [Active]; atorvastatin 40 mg Oral tab 1 tab ap3 nightly [Active]; donepezil 5 mg Oral tab 1 tab nightly [Active]; furosemide 20 mg Oral tab 1 tab once daily [Active]; isosorbide mononitrate 60 mg Oral Tb24 1.5 tabs once daily [Active]; isosorbide mononitrate 120 mg Oral Tb24 1 tab once daily [Active]; Januvia 50 mg Oral tab 1 tab once daily [Active]; lisinopril 5 mg Oral tab 1 tab once daily [Active]; potassium chloride 10 mEq Oral TbER 1 tab once daily [Active]; - PMHx: 16:28 CAD; cardiac arrest; CHF; chronic kidney disease; Chronic pain; Diabetes - IDDM; High ap3 Cholesterol; Hypertension; Myocardial infarction; - Immunization history:: Client reports receiving the 2nd dose of the Covid vaccine, Pneumococcal vaccine is not up to date, Flu vaccine is up to date. - Social history:: Smoking status: Patient denies any tobacco usage or history of. Patient/guardian denies using alcohol, street drugs, The patient lives with family. - Family history:: not pertinent. Screenin:30 Abuse screen: Denies threats or abuse. Nutritional screening: No deficits noted. ap3 Tuberculosis screening: No symptoms or risk factors identified. Fall Risk No fall in past 12 months (0 pts). No secondary diagnosis (0 pts). IV access (20 points). Assessment: 16:31 General: see triage assessment. ap3 Vital Signs: 16:25 BP 135 / 82; Pulse 88; Resp 16; Temp 97.4; Pulse Ox 96% on R/A; Weight 78.02 kg; Height ap3 5 ft. 7 in. (170.18 cm); Pain 4/10; 17:17 BP 135 / 77; Pulse 71; Resp 17; Pulse Ox 100% ; ap3 17:59 BP 129 / 65; Pulse 80; Pulse Ox 97% on R/A; ap3 18:35 BP 140 / 82; Pulse 63; Resp 19; Pulse Ox 98% on R/A; ap3 20:56 BP 132 / 57; Pulse 60; Resp 16; Pulse Ox 96% on R/A; st1 16:25 Body Mass Index 26.94 (78.02 kg, 170.18 cm) ap3 ED Course: 16:24 Patient arrived in ED. ap3 16:25 Jose Ferguson MD is Attending Physician. ma2 16:28 Triage completed. ap3 16:30 Arm band placed on right wrist. ap3 16:30 Patient has correct armband on for positive identification. Bed in low position. Call ap3 light in reach. Side rails up X2. Adult w/ patient. lunchroom monitor on. Pulse ox on. NIBP on. Door closed. Noise minimized. 16:47 Cintia Scott, RN is Primary Nurse. 5 17:47 XRAY Lumbar Spine (3 Views) In Process Unspecified. EDMS 17:47 XRAY Chest (1 view) In Process Unspecified. EDMS 18:52 Gadiel Anderson MD is Hospitalizing Provider. ma2 21:57 No provider procedures requiring assistance completed. Patient admitted, IV remains in st1 place. Administered Medications: 18:46 CANCELLED (Duplicate Order): Aspirin Chewable Tablet 324 mg PO once; 81 mg tablets x 4 la1 18:48 Drug: HYDROcodone-acetaminophen 5 mg-325 mg 1 tabs Route: PO; ap3 19:03 Not Given (previously givee): Aspirin Chewable Tablet 324 mg PO once; 81 mg tablets x 4 ap3 Outcome: 18:52 Decision to Hospitalize by Provider. ma2 21:58 Admitted to Med/surg accompanied by tech, via wheelchair, with chart. st1 21:58 Condition: stable 21:58 Instructed on the need for admit. 21:58 Patient left the ED. st1 Signatures: Dispatcher [employer] EDMS Jose Ferguson MD MD mt2 Ruchi Garcia RN RN ap3 Cintia Scott, RN RN 5 Patty Cabrera, HERBIE RN 1 Dayo Reyna [facility]
[2021-12-18 18:57] LABS: Albumin 3.1 g/dL (3.4-5.0); Bilirubin Direct 0.2 mg/dL (0-0.2); Bilirubin Total 0.5 mg/dL (0.2-1.0); Potassium 4.4 mmol/L (3.5-5.1); Troponin High Sensitivity 42.7 pg/mL (<58.9)
--- NOTE | 2021-12-18 19:03 | P.HP ---
Certification for Inpatient Patient admitted to: Observation With expected LOS: <2 Midnights Patient will require the following post-hospital care: None Practitioner: I am a practitioner with admitting privileges, knowledge of patient current condition, hospital course, and medical plan of care. Services: Services provided to patient in accordance with Admission requirements found in Title 42 Section 412.3 of the Code of Federal Regulations Patient History Date of Service: 12/18/21 Reason for admission: Chest pain History of Present Illness: 81-year-old male with history of CAD, diabetes type 2insulin- dependent, chronic diastolic CHF, hypertension, hyperlipidemia, CKD 3 with history of right nephrectomy, dementia presents emergency department for left- sided chest pain. Patient reports chest pain began couple days ago and is persistent, nonradiating. Patient had heart catheterization on 12/02/2021 with shock wave lithotripsy and balloon angioplasty of the LAD and RCA using groin access. Patient was evaluated here in the emergency department labs were significant for hemoglobin 135 creatinine 1.32 GFR 52 glucose 227 BNP 1551 tr oponin high-sensitivity 42.7 which is within normal limits. ED prior wishes to admit to observation to trend troponins and have cardiology consult with patient. Allergies No Known Allergies Allergy (Verified 03/10/20 01:08) Home Medications: Atorvastatin Calcium 1 tab PO BEDTIME 03/10/20 Insulin Glargine Human [Lantus*] 10 unit SQ BEDTIME 03/10/20 Donepezil HCl [Aricept] 5 mg PO BEDTIME 03/17/20 Furosemide [Lasix*] 20 mg PO DAILY 03/17/20 Isosorbide Mononitrate [Isosorbide Mononitrate ER] 120 tab PO DAILY 09/24/20 Lisinopril [Zestril] 5 mg PO DAILY 09/24/20 Sitagliptin Phosphate [Januvia*] 50 mg PO DAILY 09/24/20 Aspirin 1 tab PO DAILY #30 tab.chew 10/29/21 Clopidogrel Bisulfate [Plavix*] 75 mg PO DAILY #30 tablet 10/29/21 Metoprolol Tartrate [Lopressor*] 12.5 mg PO BID 6AM 6PM #60 tab 10/29/21 Nitroglycerin 0.4 mg SL DAILY PRN 11/30/21 Potassium Chloride [Klor-Con 10] 10 meq PO DAILY 11/30/21 Trazodone [Desyrel*] 50 mg PO BEDTIME PRN 11/30/21 Vitamin B Complex [B Complex] 1 each PO DAILY 11/30/21 Codeine/APAP [Tylenol #3*] 1 tab PO BID PRN #10 tab 12/04/21 Lidocaine 4% Patch [Lidoderm 5% Patch*] 1 patch TD DAILY #30 patch 12/04/21 - Past Medical/Surgical History Diabetic: Yes Past Medical History: Reviewed- Non-Contributory -: Chronic diastolic congestive heart failure -: HTN -: DM IDDM -: Heart Stents -: Solitary kidney -: Chronic renal failure -: CAD -: stents -: heart cath. Psychosocial/ Personal History: Patient is , lives at home alone - Family History Father -: Heart disease Notes: NM - Social History Smoking Status: Unknown if ever smoked Alcohol use: No CD- Drugs: No Caffeine use: Yes Place of Residence: Home Review of Systems 10-point ROS is otherwise unremarkable Cardiovascular: Chest Pain Physical Examination - Physical Exam General: Alert, In no apparent distress, Oriented x3 HEENT: Atraumatic, PERRLA, Mucous membr. moist/pink, EOMI, Sclerae nonicteric Neck: Supple, 2+ carotid pulse no bruit, No LAD, Without JVD or thyroid abnormality Respiratory: Clear to auscultation bilaterally, Normal air movement Cardiovascular: Regular rate/rhythm, Normal S1 S2 Gastrointestinal: Normal bowel sounds, No tenderness Musculoskeletal: No tenderness Integumentary: No rashes Neurological: Normal gait, Normal speech, Normal strength at 5/5 x4 extr, Normal tone, Normal affect Lymphatics: No axilla or inguinal lymphadenopathy - Studies Laboratory Data (last 24 hrs) 12/18/21 16:54: PT 11.2, INR 0.97 12/18/21 16:54: WBC 5.80, Hgb 11.8 L, Hct 34.4 L, Plt Count 174 12/18/21 16:54: Sodium 135 L, Potassium 4.4, BUN 14, Creatinine 1.32 H, Glucose 327 H, Total Bilirubin 0.5, AST 11 L, ALT 19, Alkaline Phosphatase 63 Assessment and Plan - Plan Assessment: Chest pain rule out ACS history CAD Chronic diastolic congestive heart failure CKD 3 Diabetes type 2insulin-dependent with hyperglycemia Hypertension Hyperlipidemia Dementia Plan: Chest pain rule out ACS history CAD: Monitor on telemetry, trend troponins. Patient with heart catheterization 12/02/2021 with shockwave lithotripsy performed as well as balloon angioplasty of the LAD and RCA. Cardiology consult in place, doubt intervention, possible musculoskeletal pain. Chronic diastolic congestive heart failure: Continue home dose of Lasix, monitor on telemetry. CKD 3: Stable CKD. Continue medications Diabetes type 2insulin-dependent with hyperglycemia: Obtain and continue medications. Hypertension: Home medications have been continued Hyperlipidemia:Home medications have been continued Dementia:Home medications have been continued DVT PPX: Lovenox Code status: Full Discharge Plan: Home Plan to discharge in: 24 Hours - Advance Directives Does patient have a Living Will: Yes Does patient have a Durable POA for Healthcare: No - Code Status/Comfort Care Code Status Assessed: Yes (Full code) Critical Care: No Time Spent Managing Pts Care (In Minutes): 55
[2021-12-18 19:33] VITALS: BMI 26.9
[2021-12-18] MEDS ORDERED: TRAZODONE 50 MG TABLET PO PRN (21:04)
[2021-12-18] MEDS ORDERED: ONDANSETRON 4 MG/2 ML VIAL IV PRN (21:04)
[2021-12-18 22:17] LABS: Magnesium 1.6
[2021-12-18] MEDS: ATORVASTATIN 40 MG TAB PO SCH (22:44)
[2021-12-18] MEDS: DONEPEZIL HCL 5 MG TAB PO SCH (22:44)
[2021-12-18] MEDS: INSULIN -REGULAR HUMAN 50 UNIT/0.5 ML ML SQ SCH (22:45)
[2021-12-18] MEDS: INSULIN GLARGINE 100 UNIT/ML SQ SCH (22:46)
[2021-12-18] MEDS: MORPHINE 2 MG/ML SYR IV PRN (22:48)
[2021-12-19] MEDS ORDERED: TRAMADOL HCL 50 MG TAB PO ONE (02:43)
[2021-12-19 03:25] LABS: Urine Appearance CLEAR (Clear); Urine Bilirubin NEGATIVE (Negative); Urine Blood NEGATIVE (Negative); Urine Color YELLOW (Yellow); Urine Glucose 3+ (Negative); Urine Protein NEGATIVE (Negative); Urine pH 6.5 (5.0-7.0)
[2021-12-19 03:32] LABS: Urine Microscopic Reflex NO UMIC
[2021-12-19] MEDS: METOPROLOL TAR 25 MG TAB PO SCH ×2 (05:40→18:00)
[2021-12-19 05:57] LABS: Absolute Lymphocytes (CBC) 1.6 K/uL (0.7-4.9); Hematocrit 34.6 % (39.6-49.0); Lymphocytes % 28.3 % (15.3-44.8); MPV 8.1 fL (7.6-11.3); RBC Red Blood Cell Count 3.66 M/uL (4.33-5.43)
[2021-12-19 06:13] LABS: Albumin 3.1 g/dL (3.4-5.0); Bilirubin Total 0.9 mg/dL (0.2-1.0); Protein, Total 6.7 g/dL (6.4-8.2); Troponin High Sensitivity 53.2 pg/mL (<58.9)
[2021-12-19] MEDS: INSULIN -REGULAR HUMAN 50 UNIT/0.5 ML ML SQ SCH ×4 (07:30→21:32)
[2021-12-19] MEDS ORDERED: PNEUMOCOCCAL VACCINE 0.5 ML IMVAC ONE (09:00)
[2021-12-19] MEDS ORDERED: FUROSEMIDE 20 MG TABLET PO SCH (09:00)
[2021-12-19] MEDS ORDERED: ISOSORBIDE MONO SR 60 MG TAB PO SCH (09:00)
[2021-12-19] MEDS ORDERED: lisinopriL 5 MG TAB PO SCH (09:00)
[2021-12-19] MEDS ORDERED: ENOXAPARIN 40 MG/0.4 ML SQ SCH (09:00)
[2021-12-19] MEDS ORDERED: CLOPIDOGREL 75 MG TABLET PO SCH (09:00)
[2021-12-19] MEDS ORDERED: ASPIRIN EC 81 MG TAB PO SCH (09:00)
[2021-12-19] MEDS: MORPHINE 2 MG/ML SYR IV PRN (12:52)
[2021-12-19] MEDS ORDERED: NA CHLORIDE 0.9% 1,000 ML IV ONE (15:49)
[2021-12-19] MEDS ORDERED: NA CHLORIDE 0.9% 500 ML ONE (15:53)
[2021-12-19] MEDS ORDERED: NA CHLORIDE 0.9% 1,000 ML ONE (16:00)
[2021-12-19] MEDS ORDERED: HEPARIN/D5W 25,000 UNIT/500 ML BAG IV SCH (16:00)
--- NOTE | 2021-12-19 16:19 | P.PN ---
Date of Service: 12/19/21 Subjective: continues with intermittent chest pain trop remains negative ROS: as noted above, otherwise negative Physical Exam General: Alert, In no apparent distress, Oriented x3. 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 recommended lithotripsy at that time recommended transfer to tertiary [place] for the above given ongoing symptoms and known disease patient stated he wanted us to discuss with his Wreath Inspector, Dr. Costello, and transfer to [facility] if possible / agreed spoke with Dr. Costello, stated beds available, to initiate transfer to [facility]. Chronic diastolic congestive heart failure: Continue home dose of Lasix, monitor on telemetry. CKD 3: Diabetes type 2insulin-dependent with hyperglycemia: Hypertension: Hyperlipidemia: Dementia: continued home medications VTE: lovenox Code: full Dispo: transfer to tertiary [facility]
[2021-12-19] MEDS ORDERED: HEPARIN/D5W 25,000 UNIT/500 ML BAG IV ONE (16:20)
--- NOTE | 2021-12-19 17:25 | CON ---
Date of Consultation: 12/19/2021 Reason For Consultation: Chest pain. History Of Present Illness: This is an 81-year-old gentleman very well known to me, known to have hi story of coronary artery disease, status post recent catheterization done by myself on December 02, co mes in for the second time this month with a chest pain. On the cath, he had severe mid LAD in-stent restenosis with heavy calcium load, severe proximal RCA in-stent restenosis with heavy calcium with as well, and the circumflex is normal. The patient recommended a shockwave lithotripsy and balloon a ngioplasty for good results. However, the patient has not made it as an outpatient and this was not done yet. Hence, the patient is back with chest pain and that is likely representing unstable angina . Past Medical History: Coronary artery disease, well know established chronic kidney disease, diastol ic heart failure, hypertension, diabetes. Medications: Refer reconciliation sheet for detailed list. Allergies: NO KNOWN DRUG ALLERGIES. Family History: No premature coronary artery disease or cancer. Social History: He does not smoke or drink. Does not use any drugs. Review of Systems: All systems reviewed and they were negative except as mentioned in the HPI. Physical Examination: Vital Signs: Reviewed. Head and Neck: Pupils are equal, reactive to light. Intact eye movements. No JVD. No cervical. N alexa is supple. Thyroid is not enlarged. Lungs: Clear to auscultation bilaterally. No rhonchi, rales, or crackles. No accessory muscle use. Heart: Regular rate and rhythm. No extra sounds. Abdomen: Soft, nontender. Bowel sounds positive. No organomegaly. No masses or hernia. No rigidi ty or rebound. Extremities: No edema, clubbing, or cyanosis. Intact pulses. Skin: No rash was noted. Neuro: Alert, awake, and oriented x3. No acute focal deficits appreciated. Investigations: Troponins are negative. His creatinine is 1.1. Assessment And Recommendations: Chest pain, probably unstable angina. Has significant ISR in both R CA and LAD stents. Needs a lithotripsy shockwave followed by balloon angioplasty versus laser athere ctomy. I recommended to do this in [place]. However, the patient did not make it to the procedure a t [place] yet and he has been hospitalized now with chest pain. At this point, probably the patient has difficulty getting access to [place]. I recommended transfer him for the above planned procedure . Meanwhile, we will continue aspirin and Plavix and use nitrates for pain control and high-dose sta tin. Thank you for the consult. SHEA Voice ID: [id number] Report ID: [id number]
--- NOTE | 2021-12-19 17:57 | P.DS ---
Admission Date: 12/18/21 Discharge Date: 12/19/21 Disposition: TRANSFER TO [facility] Discharge Condition: FAIR Reason for Admission: Chest pain Consultations: CardiologyDr. Trang Yu Procedures: Problem List Chest pain rule out ACS history CAD Chronic diastolic congestive heart failure CKD 3 Diabetes type 2insulin-dependent with hyperglycemia Hypertension Hyperlipidemia Dementia Chest x-ray 12/18 FINDINGS: Lung volumes are low. No new mass or consolidation. Interstitial pattern is not clearly different. Heart and vasculature are normal. No measurable pleural effusion and no pneumothorax. No acute bony abnormality seen. No acute aortic findings suspected. IMPRESSION: No acute cardiopulmonary process. No significant change from comparison study. X-ray lumbar spine 12/18 COMPARISON: [facility] Protocol dated 11/30/2021 FINDINGS: A three-view lumbar spine examination was performed. Lumbar bodies are normal in height. Alignment is similar to the November 30 study. Pedicle screws and rods are in place spanning L3-L5. No hardware abnormality seen. Slight anterior subluxation of L4 on L5 has not changed. Significant T12-L1 degenerative disc disease is present with degenerative gas present. There is loss in height and large anterior spurring changes. Posterior endplate spurs are present. L2-3 disc space is narrowed slightly. There is significant disc space narrowing and degenerative change to the endplates at L5- S1. An acute or pathologic lumbar spine finding is not identified. SI joint degenerative changes are present. Neurostimulator device is in place entering the central canal at the T12-L1 level and extending superiorly to the T9-10 level of the central canal. Dense aortoiliac atherosclerotic calcifications are present. IMPRESSION: Extensive degenerative and postsurgical changes are present in the lumbar spine as detailed. No acute findings seen. No significant change from the CT imaging of November 30. Heart catheterization 12/02/2021 Findings: 1. Left main is normal. 2. LAD has a very long stent extending from the ostium to the mid portion after diagonal 2 branch with focal area in the midportion appears to be under- expanded due to heavy calcium around it. There was 70% in-stent restenosis. Diagonal 2 branch has proximal 90% stenosis. 3. Left circumflex is patent with diffuse luminal irregularities. 4. RCA proximal stent has 80% in-stent restenosis and then diffuse 10% to 20% in-stent restenosis. Conclusion: 1. Severe mid LAD in-stent restenosis with heavy calcium load. 2. Severe proximal RCA in-stent stenosis with heavy calcium load. 3. Difficult radial access. Plan: Shockwave lithotripsy and balloon angioplasty of LAD and RCA using groin access. Brief History of Present Illness: 81-year-old male with history of CAD, diabetes type 2insulin- dependent, chronic diastolic CHF, hypertension, hyperlipidemia, CKD 3 with history of right nephrectomy, dementia presents emergency department for left- sided chest pain. Patient reports chest pain began couple days ago and is persistent, nonradiating. Patient had heart catheterization on 12/02/2021 which demonstrated heavy calcium load recommendation was for outpatient heart catheterization with groin access/lithotripsy/balloon angioplasty with patient's primary wheel assembler Dr. Costello. Patient was evaluated here in the emergency department labs were significant for hemoglobin 135 creatinine 1.32 GFR 52 glucose 227 BNP 1551 troponin high-sensitivity 42.7 which is within normal limits. ED prior wishes to admit to observation to trend troponins and have cardiology consult with patient. Hospital Course: Patient was admitted to the floor and troponin was trended, trend relatively flat. Patient did continue to complain of some chest pain throughout his stay. Case was discussed with cardiology who recommends given the fact that patient was still having chest pain he should likely have inpatient intervention including his previous recommendations after having his heart catheterization on 12/02/2021 which included shockwave lithotripsy and balloon angioplasty. We are unable to perform these procedures at our facility for that reason patient's primary wheel assembler Dr. Costello was contacted. Dr. Sullivan accepted the patient to [facility] for further evaluation and management of chest pain. During patient stay he did have some hypotension during routine vital sign checking, blood pressure has improved with IV fluids patient currently awake, alert, oriented x3, not currently having chest pain. Systolic blood pressure around 100. Attending physician from [facility] discussed at length with Dr. Costello who will see patient at [facility]. Vital Signs/Physical Exam: Temp Pulse Resp BP Pulse Ox 97.9 F 107 H 18 100/58 L 96 12/19/21 17:28 12/19/21 17:28 12/19/21 17:28 12/19/21 17:28 12/19/21 16:00 General: Alert, In no apparent distress, Oriented x3 HEENT: Atraumatic, PERRLA, EOMI Neck: Supple, JVD not distended Respiratory: Clear to auscultation bilaterally, Normal air movement Cardiovascular: Regular rate/rhythm, Normal S1 S2 Gastrointestinal: Normal bowel sounds, No tenderness Musculoskeletal: No tenderness Integumentary: No rashes Neurological: Normal speech, Normal tone, Normal affect Lymphatics: No axilla or inguinal lymphadenopathy Laboratory Data at Discharge: WBC 5.70 K/uL (4.3-10.9) 12/19/21 05:01 Hgb 11.7 g/dL (13.6-17.9) L 12/19/21 05:01 Hct 34.6 % (39.6-49.0) L 12/19/21 05:01 Plt Count 181 K/uL (152-406) 12/19/21 05:01 PT 11.2 SECONDS (9.5-12.5) 12/18/21 16:54 INR 0.97 12/18/21 16:54 Sodium 137 mmol/L (136-145) 12/19/21 05:01 Potassium 4.0 mmol/L (3.5-5.1) 12/19/21 05:01 BUN 14 mg/dL (7-18) 12/19/21 05:01 Creatinine 1.19 mg/dL (0.55-1.3) 12/19/21 05:01 Glucose 138 mg/dL (74-106) H 12/19/21 05:01 Magnesium 1.6 12/18/21 16:54 Total Bilirubin 0.9 mg/dL (0.2-1.0) 12/19/21 05:01 AST 13 U/L (15-37) L 12/19/21 05:01 ALT 20 U/L (12-78) 12/19/21 05:01 Alkaline Phosphatase 63 U/L (45-117) 12/19/21 05:01 Home Medications: Atorvastatin Calcium 1 tab PO BEDTIME 03/10/20 Donepezil HCl [Aricept] 5 mg PO BEDTIME 03/17/20 Furosemide [Lasix*] 20 mg PO DAILY 03/17/20 Isosorbide Mononitrate [Isosorbide Mononitrate ER] 120 tab PO DAILY 09/24/20 Lisinopril [Zestril] 5 mg PO DAILY 09/24/20 Potassium Chloride [Klor-Con 10] 10 meq PO DAILY 11/30/21 Trazodone [Desyrel*] 50 mg PO BEDTIME PRN 11/30/21 Vitamin B Complex [B Complex] 1 each PO DAILY 11/30/21 Codeine/APAP [Tylenol #3*] 1 tab PO BID PRN #10 tab 12/04/21 Metoprolol Tartrate [Lopressor*] 25 mg PO BID 6AM 6PM 12/18/21 Multivitamin with Minerals [One Daily Plus Minerals] 1 each PO DAILY 12/18/21 Sitagliptin Phosphate [Januvia] 50 mg PO DAILY 12/18/21 Physician Discharge Instructions: Continue with plan of care at [facility] with Dr. Csotello. Diet: ADA Activity: Fall precautions Followup: JAY JAY GOYAL [Primary Care Provider] - Time spent managing pt's care (in minutes): 35
[2021-12-19] MEDS ORDERED: NA CHLORIDE 0.9% 250 ML ONE (18:14)
[2021-12-19] MEDS ORDERED: NA CHLORIDE 0.9% 500 ML IV ONE ×2 (18:25→19:40)
[2021-12-19] MEDS: ATORVASTATIN 40 MG TAB PO SCH (21:32)
[2021-12-19] MEDS: INSULIN GLARGINE 100 UNIT/ML SQ SCH (21:32)
[2021-12-19] MEDS: DONEPEZIL HCL 5 MG TAB PO SCH (21:32)
[2021-12-19 21:45] VITALS: TEMP 97.4
[2021-12-20 01:32] VITALS: O2SAT 98
[2021-12-20 02:38] VITALS: BP 97/55
--- NOTE | 2021-12-23 11:37 | EKG ---
Test Date: 2021-12-19 Test Time: 15:58:54 Manager Water: ANA MEASUREMENT RESULTS: Intervals: Rate: 84 DC: 168 QRSD: 114 QT: 426 QTc: 503 [place]: P: 57 DC: 168 QRS: -69 T: 108 INTERPRETIVE STATEMENTS: Normal sinus rhythm Left axis deviation Incomplete left bundle branch block Minimal voltage criteria for LVH, may be normal variant T wave abnormality, consider lateral ischemia Prolonged QT Abnormal ECG Compared to ECG 12/18/2021 16:53:32 Left bundle-branch block now present T-wave abnormality now present Possible ischemia now present Prolonged QT interval now present Early repolarization no longer present Electronically Signed On 12-23-21 11:30:59 [employer] by Gibson Davidson
== END 2021-12-19 22:24 | disposition short-term general hospital (02) ==
LOC: ER 16:15 → ERHOLD 18:55 → 2ND 20:53 → INTOOBSV 12-19 19:31 → OBSVTOIN 12-19 19:31
PROVIDERS: ADMIT Hospitalist; ATTEND Hospitalist
DX: R07.9 Chest pain, unspecified (principal); I25.10 Atherosclerotic heart disease of native coronary artery without angina pectoris; T82.855A Stenosis of coronary artery stent, initial encounter; I13.0 Hypertensive heart and chronic kidney disease with heart failure and stage 1 through stage 4 chronic kidney disease, or unspecified chronic kidney disease; I50.32 Chronic diastolic (congestive) heart failure; N18.30 Chronic kidney disease, stage 3 unspecified; E11.22 Type 2 diabetes mellitus with diabetic chronic kidney disease; I95.9 Hypotension, unspecified; E11.65 Type 2 diabetes mellitus with hyperglycemia; E78.5 Hyperlipidemia, unspecified; I25.2 Old myocardial infarction; F03.90 Unspecified dementia, unspecified severity, without behavioral disturbance, psychotic disturbance, mood disturbance, and anxiety; Z90.5 Acquired absence of kidney; Z20.822 Contact with and (suspected) exposure to COVID-19; Z82.49 Family history of ischemic heart disease and other diseases of the circulatory system
CPT/HCPCS: 93005 ×2; 85025 ×2; 80048; 36415; 83735; 85610; 82947 ×5; 80076; 85730; 81003; 84484 ×5; 80053; 83880; 71045; 72100; 99285; U0003; J1650; J2270 ×2; J7050 ×2; J7040; J7030; J1644; G0378 ×3

== ENCOUNTER 2021-12-31 21:33 | Emergency (ER) | payer OTHER ==
--- OUTSIDE RECORDS SUMMARY | 2021-12-31 21:45 | XMS REPORT | Continuity of Care Document ---
:1940 Author Organization [facility] t Address [address] [place] [address] Care Team Providers Name Role Phone Andres Briscoe DO Primary Care Physician Denny Attending Clinician Unavailable Lester Attending Clinician Unavailable ATTAR Attending Clinician Unavailable LAUREN Attending Clinician Unavailable MD LAUREN O. Attending Clinician Unavailable Doctor Unassigned, Name Attending [...] Attending Clinician Sharon HARRY Attending Clinician Unavailable Maribell_Sabino Attending Clinician Unavailable Silvina STONER, M Attending Clinician Julio Cesar WOOTEN Attending Clinician JULIO CESAR Attending Clinician Unavailable Ricardo STONER Attending Clinician Unavailable Simi Urrutia MD Attending Clinician Steven WOOTEN Attending Clinician STEVEN Attending Clinician Unavailable CHAVA Attending Clinician Unavailable Chava WOOTEN Attending Clinician Wes STONER Attending Clinician Physician, Primary or Family Admitting Clinician Unavailbrian AGUILAR Admitting Clinician Unavailable MD LAUREN ORitesh Admitting Clinician Unavailable ALYSSA Admitting Clinician Unavailable Alyssa WOOTEN Admitting Clinician Justina Flores MD Admitting Clinician Justina FLORES Admitting Clinician Unavailable Sharon HARRY Admitting Clinician Unavailable Clair Admitting Clinician Unavailable Julio Cesar WOOTEN Admitting Clinician JULIO CESAR Admitting Clinician Unavailable Steven WOOTEN Admitting Clinician STEVEN Admitting Clinician Unavailable Payers Payer Name Policy Type Policy Number Effective Date Expiration Date [facility] [id number] 2019 DUAL COMPLETE HMO 00:00:00 [place]ICAID OF [place] [id number] 2018 00:00:00 Problems Condition Condition Condition Status Onset Resolution Last Treating Co mments Source Name Details Category Date Date Treatment Clinician Date Unstable Unstable Disease Active Unive rs angina angina 5-07 ity of 00:00: [place] [facility] ALBA (acute ALBA (acute Disease Active 2020- U nivers kidney kidney 4-21 ity of injury) injury) 00:00: [place] [facility] Chest pain Chest pain Disease Active 2019- U nivers 4-21 ity of 00:00: [place] [facility] Chest pain Chest pain Disease Active 2020- U 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 4-15 it y of 00:00: [place] [facility] 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 00:00: [place] and and 00 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 2018-11 U nivers lobe lobe 1-06 ity of pneumonia pneumonia 00:00: [facility] 00 Medical Branch PNA PNA Disease Active 2018-11 Univers (pneumonia (pneumonia 0-25 it y of ) ) 00:00: [place] [facility] Acute on Acute on Disease Active 2018-11 Unive rs chronic chronic 0-25 ity of combined combined 00:00: [place] systolic systolic 00 Medica l and and Branch 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 Dyspnea Dyspnea Disease Active 2018-11 Univers 0-23 ity of 00:00: [place] [facility] CHF CHF Disease Active 2019 Univers exacerbati exacerbati 2-17 it y of on on 00:00: [place] [facility] Essential Essential Disease Active Uni vers hypertensi hypertensi 2-17 it y of on on 00:00: [place] [facility] 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 00:00: [place] without without 00 Medical complicati complicati Br anch on, on, without without long-term long-term current current use of use of insulin insulin CHF CHF Disease Active Univers exacerbati exacerbati 2-17 it y of on on 00:00: [place] [facility] Acute on Acute on Disease Active Unive rs chronic chronic 1-28 ity of systolic systolic 00:00: [place] CHF CHF 00 Medical (congestiv (congestiv Br anch e heart e heart failure) failure) Elevated Elevated Disease Active Unive rs troponin I troponin I 1-27 it y of level level 00:00: [place] 00 Medical Branch DE LA CRUZ DE LA CRUZ Disease Active Univers (dyspnea (dyspnea 1-27 ity of on on 00:00: [place] exertion) exertion) 00 Medi birdie Branch Coronary Coronary Disease Active Unive rs artery artery 1-27 ity of disease disease 00:00: [place] involving involving 00 Medi birdie [place] coronary 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[place] 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 00:00: [place] disease disease 00 Medical Branch Coronary Coronary Disease Active Unive rs artery artery 1- ity of disease disease 00:00: [place] involving involving 00 Medi birdie [place] Branch coronary 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[place] 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 [...] No Known DA Active U [facility] Allergie - Clear s 00:00: [place] 00 [facility] NO KNOWN Drug Active Univers ALLERGIE Class ity of S [facility] Social History Social Habit Start Date Stop Date Quantity Comments Source Exposure to [facility] University of SARS-CoV-2 (event) [facility] History of tobacco User of Univer sity of use smokeless [facility] tobacco [place] Alcohol intake 2021-10-31 2021-10-31 Current University of 00:00:00 00:00:00 non-drinker of [facility] alcohol Branch (finding) Cigarettes smoked 2018-12-11 2018-12-11 Univers ity of current (pack per 00:00:00 00:00:00 [facility] ) - Reported Branch Cigarette 2018-12-11 2018-12-11 University of pack-years 00:00:00 00:00:00 [facility] Tobacco use and 2018-12-11 2018-12-11 Former user Universi ty of exposure 00:00:00 00:00:00 [facility] Sex [birth year] At [birth year] Universit y of 00:00:00 00:00:00 [facility] Smoking Status Start Date Stop Date Source Former smoker 2018-12-11 00:00:00 2018-12-11 00:00:00 [facility] Medications Ordered Filled Start Stop Current Ordering Indication Dosage Frequency Signature Comments Components Source Medication Medication Date Date Medication? Clinician (SIG) Name Name aspirin 81 2020-11- Yes [id number] 81mg Take 1 Univers mg chewable -12-04 tablet by it y of tablet 00:00: 05:59 mouth [place] 00 :00 daily for Medical 30 days. Branch clopidogreL 2020-11- Yes [id number] 75mg Take 1 Univers 75 mg -12-04 tablet by ity of tablet 00:00: 05:59 mouth [place] 00 :00 daily for Medical 30 days. Branch furosemide 2020-11- Yes [id number] 20mg Take 1 Univers 20 mg -12-04 tablet by ity of tablet 00:00: 05:59 mouth [place] 00 :00 daily for Medical 30 days. Branch aspirin 81 2020-11- Yes [id number] 81mg Take 1 Univers mg chewable 2-12-04 tablet by it y of tablet 00:00: 05:59 mouth [place] 00 :00 daily for Medical 30 days. Branch clopidogreL 2020-11- Yes [id number] 75mg Take 1 Univers 75 mg 2-12-04 tablet by ity of tablet 00:00: 05:59 mouth [place] 00 :00 daily for Medical 30 days. Branch furosemide 2020-11- Yes [id number] 20mg Take 1 Univers 20 mg 01-04 tablet by ity of tablet 00:00: 05:59 mouth [place] 00 :00 daily for Medical 30 days. Branch aspirin 81 2020-11- Yes [id number] 81mg Take 1 Univers mg chewable 01-04 tablet by it y of tablet 00:00: 05:59 mouth [place] 00 :00 daily for Medical 30 days. Branch clopidogreL 2020-11- Yes [id number] 75mg Take 1 Univers 75 mg 01-04 tablet by ity of tablet 00:00: 05:59 mouth [place] 00 :00 daily for Medical 30 days. Branch furosemide 2020-11- Yes [id number] 20mg Take 1 Univers 20 mg 01-04 [...] tablet 53 :00 daily. Medical Branch LISINOPRIL 2021-1 2021- No 5mg Take 5 mg U nivers ORAL 2-18 12-18 by mouth ity of 14:14: 00:00 daily. [place] 53 :00 Medical Branch isosorbide 2020-11 Yes 60mg 60 mg, Unive rs mononitrate 2-18 Oral, BID, it y of (IMDUR) 24 14:00: First dose [place] hr tablet 00 (after Medical 60 mg last Branch modificati on) on 11/02/21 at 0800, Until Discontinu ed, Routine QUEtiapine 2020-11 Yes [id number] 25mg Take 1 Univers 25 mg 2-18 tablet by ity of tablet 00:00: mouth at [place] [address] bedtime as Medical needed Branch (agitation /insomnia) . QUEtiapine 2020-11 Yes [id number] 25mg Take 1 Univers 25 mg 2-18 tablet by ity of tablet 00:00: mouth at [place] 00 bedtime as Medical needed Branch (agitation /insomnia) . QUEtiapine 2020-11 Yes [id number] 25mg Take 1 Univers 25 mg 2-18 tablet by ity of tablet 00:00: mouth at [place] 00 bedtime as Medical needed Branch (agitation /insomnia) . isosorbide 2020-11- Yes [id number] 60mg Take 1 Univers mononitrate 2-18 -18 tablet by it y of 60 mg 24 hr 00:00: 05:59 mouth 2 [place] tablet 00 :00 (two) Medical times Branch daily for 30 days. metoprolol 2020-11- Yes [id number] 37.5mg Take 1.5 Univers succinate 2-18 -18 tablets by ity of XL 25 mg 24 00:00: 05:59 mouth 2 [place] hr tablet 00 :00 (two) Medical times Branch daily for 30 days. isosorbide 2020-11- Yes [id number] 60mg Take 1 Univers mononitrate 2-18 01-18 tablet by it y of 60 mg 24 hr 00:00: 05:59 mouth 2 [place] tablet 00 :00 (two) Medical times Branch daily for 30 days. metoprolol 2020-11- Yes [id number] 37.5mg Take 1.5 Univers succinate 2-18 -18 tablets by ity of XL 25 mg 24 00:00: 05:59 mouth 2 [place] hr tablet 00 :00 (two) Medical times Branch daily for 30 days. isosorbide 2020-11- Yes [id number] 60mg Take 1 Univers mononitrate 01-03 tablet by it y of 60 mg 24 hr 00:00: 05:59 mouth 2 [place] tablet 00 :00 (two) Medical times Branch daily for 30 days. metoprolol 2020-11- Yes [id number] 37.5mg Take 1.5 Univers succinate 01-03 tablets by ity of XL 25 mg [...] dose [place] XL) tablet 00 :36 on Thu Medical 25 mg 11/01/21 Branch at 0830, [...] mg 03:00: First dose [place] 00 on [facility] Medical 10/31/21 Branch at 2100, Until Discontinu ed, Routine atorvastati 2020-11 Yes 40mg 40 mg, Univ ers n (LIPITOR) 2-17 Oral, QHS, it y of tablet 40 03:00: First dose [place] mg 00 on [facility] Medical 10/31/21 Branch at 2100, Until Discontinu ed, Routine clopidogreL 2020-11 Yes 75mg 75 mg, Univ ers (PLAVIX) 2-16 Oral, ity of tablet 75 23:30: DAILY, [place] mg 00 First dose Medical on [facility] Branch 10/31/21 at 1730, Until Discontinu ed, Routine sulfur 2020-11- No [id number] 5mL 5 mL, Unive rs hexafluorid 01-01 Intravenou i ty of e microsphr 17:00: 17:00 s, ONCE, 1 [place] (LUMASON) 00 :00 dose, On Medica l injection 5 [facility] Branch mL 10/31/21 at 1100, Routine
solar crew member approving Restricted medication : HOA MEGGAN isosorbide 2020-11- No 120mg 120 mg, Un mel mononitrate 01-01 Oral, ity of (IMDUR) 24 15:00: 14:16 DAILY, [place] hr tablet 00 :38 First dose Medi birdie 120 mg on [facility] Branch 10/31/21 at 0900, Until Discontinu ed, Routine Sliding 2020-11 Yes Subcutaneo [facility] ers Scale - , AC+HS, ity of Insulin-Reg 13:30: First dose [place] ular + Fsbg 00 on [facility] Medica l Testing 10/31/21 Branch at 0730, Until Discontinu ed, Routine enoxaparin 2020-11- No 1mg/kg 80 mg Uni vers (LOVENOX) 01-01 (rounded ity o f injection 09:00: 14:17 from 78 mg [place] 80 mg 00 :35 = 1 mg/kg Medical ?78 kg), Branch Subcutaneo , Q24H, First dose on [facility] 10/31/21 at 0300, Until Discontinu ed, Routine aspirin 2020-11- No 325mg 325 mg, Unive rs tablet 325 01-01 Oral, ity of mg 08:45: 08:15 ONCE, 1 [place] 00 :00 dose, On Medical [facility] Branch 10/31/21 at 0245, Routine glucagon 2020-11 Yes 1mg 1 mg, Univers (GLUCAGEN 2-16 Intramuscu ity of DIAGNOSTIC 08:16: lar, PRN, [place] KIT) 15 Starting Medical injection 1 on [facility] Branch mg 10/31/21 at 0216, Until Discontinu [...] 2 mg, Slow Un mel injection 2 2-16 12-17 IV Push, ity of mg 07:36: 05[facility] [place] [facility]07 Starting Medical on [facility] Branch [...] 2-16 IV Push, ity of (PF)) 05:32: [place], [place] injection 4 10 Starting Medi birdie mg on Thu Branch 10/30/21 at 2332, Until Discontinu ed, Routine, Nausea and Vomiting (N/V) acetaminoph 2020-11 Yes 650mg 650 mg, Un mel en 2-16 Oral, ity of (TYLENOL) 05:31: [place], [place] tablet 650 56 Starting Medic al mg on Thu Branch 10/30/21 at 2331, Until Discontinu ed, Routine, Pain (scale 1-3) acetaminoph 2020-11 Yes [id number] 1{tbl} 1 tablet, Univers en-codeine 2-16 Oral, ity of (TYLENOL 05:29: Q6HPRN, [place] #3) 300-30 29 Starting Medic al mg [...] Discontinu ed, Routine, IV line flushing morpHINE No 4mg 4 mg, Slow Un mel injection 4 04-25 06-10 IV Push, ity of mg 23:15: 22:23 ONCE, 1 [place] 00 :00 dose, [facility] Medical 04/25/21 at Branch 1815, STAT acetaminoph 2020- No 1{tbl} 1 tablet, Univers en-codeine 6-10 06-10 Oral, ity of (TYLENOL 19:00: 17:52 ONCE, 1 [place] #3) 300-30 00 :00 dose, Madhav[facility] Medi birdie mg tablet 1 04/25/21 at Br anch tablet 1400, [place] cyclobenzap No 10mg 10 mg, Uni vers rine 6-10 06-10 Oral, ONCE ity of (FLEXERIL) 19:00: 17:52 NOW, 1 [place] tablet 10 00 :00 dose, [facility] Medic al mg 04/25/21 at Branch 1400, [place] cyclobenzap Yes [id number] 5mg Take 1 Univers rine 5 mg 6-10 tablet by ity o f tablet 00:00: mouth 3 [place] [address] (three) Medical times [place] daily. cyclobenzap Yes [id number] 5mg Take 1 Univers rine 5 mg 6-10 tablet by ity o f tablet 00:00: mouth 3 [place] 00 (three) Medical times [place] daily. cyclobenzap Yes [id number] 5mg Take 1 Univers rine 5 mg [...] sided low back pain cyclobenzap 2020-0 Yes [id number] 5mg Take 1 Univers rine 5 mg [...] sided low back pain cyclobenzap 2020- Yes [id number] 5mg Take 1 Univers rine 5 mg [...] [place] mg 00 First dose Medical on [facility] 03/24/20 at 0900, Until Discontinu ed, Routine MULTIVITAMI 2020-0 2020- No Take by U nivers N ORAL 5- 05-08 mouth. ity of 03:38: 00:00 [place] 54 :00 Medical Branch MULTIVITAMI 2020-0 Yes Take by Un mel N ORAL 5-09 mouth. ity of 02:01: [place] [facility] atorvastati 2020-0 Yes 40mg 40 mg, Univ [...] Discontinu ed, Routine aspirin 81 2020-0 Yes [id number] 81mg Take 1 U nivers mg chewable 5-09 tablet by ity of tablet 00:00: mouth [place] 00 daily with Medical breakfast. Branch furosemide 2020-0 Yes [id number] 20mg Take 1 U nivers 20 mg 5-09 tablet by ity of tablet 00:00: mouth [place] 00 daily. Medical Branch aspirin 81 2020-0 Yes [id number] 81mg Take 1 U nivers mg chewable 5-09 tablet by ity of tablet 00:00: mouth [place] 00 daily with Medical breakfast. Branch furosemide 2020-0 Yes [id number] 20mg Take 1 U nivers 20 mg 5-09 tablet by ity of tablet 00:00: mouth [place] 00 daily. [facility] Branch aspirin 81 2020-0 Yes [id number] 81mg Take 1 U nivers mg chewable 5-09 tablet by ity of tablet 00:00: mouth [place] 00 daily with Medical breakfast. Branch furosemide 2020-0 Yes [id number] 20mg Take 1 U nivers 20 mg 5-09 tablet by ity of tablet 00:00: mouth [place] 00 daily. Medical Branch aspirin 81 2020-0 Yes [id number] 81mg Take 1 U nivers mg chewable 5-09 tablet by ity of tablet 00:00: mouth [place] 00 daily with Medical breakfast. Branch furosemide 2020-0 Yes [id number] 20mg Take 1 U nivers 20 mg 5-09 tablet by ity of tablet 00:00: mouth [place] 00 daily. Medical Branch aspirin 81 2020-0 Yes [id number] 81mg Take 1 U nivers mg chewable 5-09 tablet by ity of tablet 00:00: mouth [place] 00 daily with Medical breakfast. Branch furosemide 2020-0 Yes [id number] 20mg Take 1 U nivers 20 mg 5-09 tablet by ity of tablet 00:00: mouth [place] 00 daily. Medical Branch aspirin 81 2020-0 Yes [id number] 81mg Take 1 U nivers mg chewable 5-09 tablet by ity of tablet 00:00: mouth [place] 00 daily with Medical breakfast. Branch furosemide 2020-0 Yes [id number] 20mg Take 1 U nivers 20 mg 5-09 tablet by ity of tablet 00:00: mouth [place] 00 daily. Medical Branch aspirin 81 2020-0 Yes [id number] 81mg Take 1 U nivers mg chewable 5-09 tablet by ity of tablet 00:00: mouth [place] 00 daily with Medical breakfast. Branch furosemide 2020-0 Yes [id number] 20mg Take 1 U nivers 20 mg 5-09 tablet by ity of tablet 00:00: mouth [place] 00 daily. Medical Branch aspirin 81 2020-0 Yes [id number] 81mg Take 1 U nivers mg chewable 5-09 tablet by ity of tablet 00:00: mouth [place] 00 daily with Medical breakfast. Branch furosemide 2020-0 Yes [id number] 20mg Take 1 U nivers 20 mg 5-09 tablet by ity of tablet 00:00: mouth [place] 00 daily. Medical Branch aspirin 81 2020-0 Yes [id number] 81mg Take 1 U nivers mg chewable 5-09 tablet by ity of tablet 00:00: mouth [place] 00 daily with Medical breakfast. Branch furosemide 2020-0 Yes [id number] 20mg Take 1 U nivers 20 mg 5-09 tablet by ity of tablet 00:00: mouth [place] 00 daily. Medical Branch aspirin 81 2019-2020- No [id number] 81mg Take 1 Univers mg chewable 03-24 tablet by it y of tablet 00:00: 00:00 mouth [place] 00 :00 daily with Medical breakfast. Branch furosemide 2019-2020- No [id number] 20mg Take 1 Univers 20 mg 03-24 tablet by ity of tablet 00:00: 00:00 mouth [place] 00 :00 daily. Medical Branch isosorbide 2019-2019- No [id number] 90mg Take 3 Univers mononitrate 03-24-08 tablets by i ty of 30 mg 24 hr 00:00: 00:00 mouth [place] tablet 00 :00 daily. Medical Branch isosorbide 2019-2019- No [id number] 90mg Take 3 Univers mononitrate 03-24-08 tablets by i ty of 30 mg 24 hr 00:00: 00:00 mouth [place] tablet 00 :00 daily. Medical Branch maalox/lido 2020-0 2020- No 5mL 5 mL, [facility] 2 03-23 05-08 Oral, ity of %viscous 20:45: 20:56 ONCE, 1 [place] 1:1 00 :00 dose, Fri Medical suspension 03/23/20 at [facility] (COMPOUNDED 1545, ) Routine maalox/lido 2020-0 2020- No 5mL 5 mL, [facility] 2 03-23 05-08 Oral, ity of %viscous 20:45: 20:56 ONCE, [place] 1: 00 :00 dose, Fri Medical suspension 03/23/20 at [facility] (COMPOUNDED 1545, ) Routine acetaminoph 2020-0 [...] Yes 1000ug 1,000 mcg, Un mel B-12 -08 Oral, ity of (CYANOCOBAL 14:00: DAILY, [place] [...] IV Push, ity of mg 07:59: Q4HPRN, [place] [address] Starting Medical [facility] 03/23/20 Branch at 0259, Until Discontinu ed, Routine, Chest pain morpHINE 2020-0 Yes 2mg 2 mg, Slow Uni vers injection 2 -08 IV Push, ity of mg 07:59: Q4HPRN, [place] [address] Starting Medical [facility] 03/23/20 Branch at 0259, Until Discontinu ed, [...] Fri Medi birdie (4 %) 03/23/20 at [place] infusion 2 0245, g Routine KCL 2020-0 2020- No 40meq 40 mEq, Univers (KLOR-CON 5-08 05-08 Oral, ity of M20) tablet 07:45: 07:27 ONCE, 1 [place] 40 mEq 00 :00 dose, Fri Medical 03/23/20 at Branch 0245, Routine heparin 2020-0 Yes 12U/kg/ 12 Univers 25,000 5-08 h Units/kg/h ity of unit/250 mL 05:15: r ?78 kg [place] (Premixed 00 (9.36 Medical Bag) in D5W mL/hr), IV Br anch weight Infusion, based CONTINUOUS dosing ACS , Starting protocol 03/23/20 at 0015, Until Discontinu ed heparin 2020-0 Yes 12U/kg/ 12 Univers 25,000 5-08 h Units/kg/h ity of unit/250 mL 05:15: r ?78 kg [place] (Premixed 00 (9.36 Medical Bag) in D5W mL/hr), IV Br anch weight Infusion, based CONTINUOUS dosing ACS , Starting protocol 03/23/20 at 0015, Until Discontinu ed heparin 2020-0 [...] 2020- No 1{capsu Take 1 Univers onepezil 03-23-07 le} capsule by ity of (NAMZARIC) 04:01: [...] 2020- No 1{capsu Take 1 Univers onepezil 03-23-07 le} capsule by ity of (NAMZARIC) 04:01: [...] 100mg Take 100 Uni vers (VITAMIN 03-23 05-07 mg by ity of B-1) 100 mg 04:01: 00:00 mouth [place] tablet 03 :00 daily. Medical Branch NaCl 0.9% 2020-0 2020- No 10mL Inject 10 Un mel (NS) Soln 03-23 05-07 mL ity of 10 mL with 04:01: 00:00 intravenou [place] sodium 03 :00 sly once Medical chloride now. Branch 2.5 mEq/mL SolP 17.125 mEq acetaminoph 2020-0 Yes 650mg 650 mg, Un mel en 03-23 Oral, ity of (TYLENOL) 02:51: Q6HPRN, [place] tablet 650 29 Starting Medic al mg [facility] 03/22/20 Branch at 2151, Until Discontinu ed, Routine, Pain (scale 1-3) acetaminoph 2020-0 Yes 650mg 650 mg, Un mel en 03-23 Oral, ity of (TYLENOL) 02:51: Q6HPRN, [place] tablet 650 29 Starting Medic al mg [facility] 03/22/20 Branch at 2151, Until Discontinu ed, Routine, Pain (scale 1-3) nitroglycer 2020-0 Yes .4mg 0.4 mg, Uni vers in 03-23 Sublingual ity of (NITROSTAT) 02:38: , Q5MIN [place] as sublingual 00 PRN, 3 Medical tablet 0.4 doses, Branch mg Starting [facility] 03/22/20 at 2138, Until Discontinu ed, ADAMA, Chest pain nitroglycer 2020-0 Yes .4mg 0.4 mg, Uni vers in 03-23 Sublingual ity of (NITROSTAT) 02:38: , Q5MIN [place] as sublingual 00 PRN, 3 Medical tablet 0.4 doses, Branch mg Starting [facility] 03/22/20 at 2138, Until Discontinu ed, ADAMA, Chest pain aspirin 2020-0 2020- No 324mg 324 mg, Unive rs chewable 03-23 05-08 Oral, ity of tablet 324 02:37: 02:51 ONCE, 1 [place] as mg 00 :00 dose, [facility] Medical 03/22/20 at Branch 2145, ADAMA aspirin 2020-0 2020- No 324mg 324 mg, Unive rs chewable 5-08 05-08 Oral, ity of tablet 324 02:37: 02:51 ONCE, 1 [place] as mg 00 :00 dose, [facility] 03/22/20 at Branch 2145, ADAAM isosorbide 2020-0 Yes [id number] 90mg Take 1.5 Univers mononitrate 5-08 tablets by it y of 60 mg 24 hr 00:00: mouth [place] tablet 00 [facility]. [facility] isos[facility]ide 2020-0 Yes [id number] 90mg Take 1.5 Univers mononitrate 5-08 tablets by it y of 60 mg 24 hr 00:00: mouth [place] tablet 00 daily. [facility] isosorbide 2020-0 Yes [id number] 90mg Take 1.5 Univers mononitrate 5-08 tablets by it y of 60 mg 24 hr 00:00: mouth [place] tablet 00 daily. [facility] isosorbide 2020-0 Yes [id number] 90mg Take 1.5 Univers mononitrate 5-08 tablets by it y of 60 mg 24 hr 00:00: mouth [place] tablet 00 daily. [facility] isosorbide 2020-0 Yes [id number] 90mg Take 1.5 Univers mononitrate 5-08 tablets by it y of 60 mg 24 hr 00:00: mouth [place] tablet 00 daily. [facility] isosorbide 2020-0 Yes [id number] 90mg Take 1.5 Univers mononitrate 5-08 tablets by it y of 60 mg 24 hr 00:00: mouth [place] tablet 00 daily. [facility] isosorbide 2020-0 Yes [id number] 90mg Take 1.5 Univers mononitrate 5-08 tablets by it y of 60 mg 24 hr 00:00: mouth [place] tablet 00 daily. [facility] isosorbide 2020-0 Yes [id number] 90mg Take 1.5 Univers mononitrate 5-08 tablets by it y of 60 mg 24 hr 00:00: mouth [place] tablet 00 daily. [facility] isosorbide 2020-0 Yes [id number] 90mg Take 1.5 Univers mononitrate 5-08 tablets by it y of 60 mg 24 hr 00:00: mouth [place] tablet 00 daily. [facility] isosorbide 2020-0 2020- No [id number] 90mg Take 1.5 Univers mononitrate 5-08 12-18 tablets by i ty of 60 mg 24 hr 00:00: 00:00 mouth [place] tablet 00 :00 daily. Medical Branch acetaminoph 2020-0 2020- No [id number] 975mg Take 3 Univers en 325 mg 5-08 05-19 tablets by ity of tablet 00:00: 04:59 mouth [place] 00 :00 every 8 Medical (eight) Branch hours for 10 days. acetaminoph 2020-0 2020- No [id number] 975mg Take 3 Univers en 325 mg 5-08 05-19 tablets by ity of tablet 00:00: 04:59 mouth [place] 00 :00 every 8 Medical (eight) Branch hours for 10 days. acetaminoph 2020-0 2020- No [id number] 975mg Take 3 Univers en 325 mg 5-08 05-19 tablets by ity of tablet 00:00: 04:59 mouth [place] 00 :00 every 8 Medical (eight) Branch hours for 10 days. acetaminoph 2020-0 2020- No [id number] 975mg Take 3 Univers en 325 mg 5-08 05-19 tablets by ity of tablet 00:00: 04:59 mouth [place] 00 :00 every 8 Medical (eight) Branch hours for 10 days. acetaminoph 2020-0 2020- No [id number] 975mg Take 3 Univers en 325 mg 5-08 05-19 tablets by ity of tablet 00:00: 04:59 mouth [place] 00 :00 every 8 Medical (eight) Branch hours for 10 days. lidocaine 5 2019- No [id number] 1{patch Apply 1 Univers % (700 5-08 05-09 } Patch to ity of mg/patch) 00:00: 04:59 area(s) [place] patch 00 :00 once now Medical for 1 Branch dose. lidocaine 5 2020- No [id number] 1{patch Apply 1 Univers % (700 5-08 05-09 } Patch to ity of mg/patch) 00:00: 04:59 area(s) [place] patch 00 :00 once now Medical for 1 Branch dose. lidocaine 5 2020- No [id number] 1{patch Apply 1 Univers % (700 5-08 05-08 } Patch to ity of mg/patch) 00:00: 00:00 area(s) [place] patch 00 :00 once now Medical for 1 Branch dose. lidocaine 5 2019- No [id number] 1{patch Apply 1 Univers % (700 5-08 05-08 } Patch to ity of mg/patch) 00:00: 00:00 area(s) [place] patch 00 :00 once now Medical for 1 Branch dose. glipiZIDE Yes 5mg 5 mg, Univers (GLUCOTROL) 4-23 Oral, ity of tablet 5 mg 14:00: DAILY, [place] 00 First dose Medical on [facility] [facility] 03/08/20 at 0900, Until Discontinu ed, Routine spironolact 2020- No [id number] 12.5mg Take 0.5 Univers one 25 mg 4-23 05-24 tablets by ity of tablet 00:00: 04:59 mouth [place] 00 :00 daily for Medical 30 days. Branch spironolact 2019- No [id number] 12.5mg Take 0.5 [facility] one 25 mg 4-23 05-24 tablets by ity of tablet 00:00: 04:59 mouth [place] 00 :00 daily for Medical 30 days. Branch spironolact 2019- No [id number] 12.5mg Take 0.5 [facility] one 25 mg 4-23 05-24 tablets by ity of tablet 00:00: 04:59 mouth [place] 00 :00 daily for Medical 30 days. Branch spironolact 2020- No [id number] 12.5mg Take 0.5 [facility] one 25 mg 4-23 05-07 tablets by ity of tablet 00:00: 00:00 mouth [place] 00 :00 daily for Medical 30 days. Branch spironolact 2020- No [id number] 12.5mg Take 0.5 [facility] one 25 mg 4-23 05-07 tablets by ity of tablet 00:00: 00:00 mouth [place] 00 :00 daily for Medical 30 days. Branch memantine-d Yes 1{capsu Take 1 U nivers onepezil - le} capsule by ity o f (NAMZARIC) 23:46: mouth [place] 28-10 mg 10 daily. Medical CSpX Branch folic Yes Take by Univers acid/vit B 4-22 mouth. ity of complex and 23:46: [place] C (B 10 Medical COMPLEX-VIT Branch RAZA C-FOLIC ACID ORAL) Cholecalcif Yes Take by Un mel ann, 4- mouth. ity of Vitamin D3, 23:46: [place] [...] N ORAL - mouth. ity of 23:46: [place] 10 Medical Branch thiamine 2020-0 Yes 100mg [...] Branch 2.5 mEq/mL SolP 17.125 mEq metoprolol 2019-0 2020- No 12.5mg Take 12.5 [facility] tartrate -07 03-22 mg by ity of 12.5 mg 20:15: 00:00 mouth 2 [place] 29 :00 (two) Medical times Branch daily. aspirin 81 2020-0 2020- No 81mg Take 81 mg Univers mg chewable -07 03-22 by mouth ity of tablet 20:15: 00:00 daily. [place] 29 :00 Medical Branch atorvastati 2019-0 2020- No 40mg Take 40 mg Univers n 40 mg -07 03-22 by mouth ity of tablet 20:15: 00:00 at [place] 29 :00 bedtime. Medical Branch temazepam 2019-0 Yes 15mg 15 mg, Univer s (RESTORIL) -22 Oral, ity of capsule 15 01:55: QHSPRN, [place] mg 38 Starting Medical Tue Branch 03/06/20 at 2055, Until Discontinu ed, Routine, Insomnia Insulin 2019-0 Yes [id number] 10U inject 10 [facility] Glargine 4-22 Units ity of 100 unit/mL 00:00: under the [place] (3 mL) 00 skin at Medical injection bedtime. Branch temazepam 2019-0 Yes [id number] 15mg Take 1 Un mel 15 mg 4-22 capsule by ity of capsule 00:00: mouth at [place] 00 bedtime as Medical needed for Branch Insomnia. furosemide 2020-0 Yes [id number] 40mg Take 1 [facility] 40 mg 4-22 tablet by ity of tablet 00:00: mouth [place] 00 every Medical morning Branch and evening. Magnesium 2020-0 Yes [id number] 400mg Take 400 [facility] Oxide 420 4-22 mg by ity of mg Tab 00:00: mouth [place] 00 daily. Medical Branch potassium 2020-0 Yes [id number] 20meq Take 20 [facility] chloride 20 4-22 mEq by ity of mEq packet 00:00: mouth [place] 00 daily. Medical Take with Branch lasix in the morning isosorbide 2020-0 Yes [id number] 15mg Take 0.5 [facility] mononitrate 4-22 tablets by it y of 30 mg 24 hr 00:00: mouth [place] tablet 00 daily. Medical Hold if Branch systolic blood pressure less than 120 Insulin 2020-0 Yes [id number] 10U inject 10 [facility] Glargine 4-22 Units ity of 100 unit/mL 00:00: under the [place] (3 mL) 00 skin at Medical injection bedtime. Branch temazepam 2020-0 Yes [id number] 15mg Take 1 Un mel 15 mg 4-22 capsule by ity of capsule 00:00: mouth at [place] 00 bedtime as Medical needed for Branch Insomnia. furosemide 2020-0 Yes [id number] 40mg Take 1 [facility] 40 mg 4-22 tablet by ity of tablet 00:00: mouth [place] 00 every Medical morning Branch and evening. Magnesium 2020-0 Yes [id number] 400mg Take 400 [facility] Oxide 420 4-22 mg by ity of mg Tab 00:00: mouth [place] 00 daily. Medical Branch potassium 2020-0 Yes [id number] 20meq Take 20 [facility] chloride 20 4-22 mEq by ity of mEq packet 00:00: mouth [place] 00 daily. Medical Take with Branch lasix in the morning isosorbide 2020-0 Yes [id number] 15mg Take 0.5 [facility] mononitrate 4-22 tablets by it y of 30 mg 24 hr 00:00: mouth [place] tablet 00 daily. Medical Hold if Branch systolic blood pressure less than 120 Insulin 2020-0 Yes [id number] 10U inject 10 [facility] Glargine 4-22 Units ity of 100 unit/mL 00:00: under the [place] (3 mL) 00 skin at Medical injection bedtime. Branch temazepam 2020-0 Yes [id number] 15mg Take 1 Un mel 15 mg 4-22 capsule by ity of capsule 00:00: mouth at [place] 00 bedtime as Medical needed for Branch Insomnia. furosemide 2020-0 Yes [id number] 40mg Take 1 [facility] 40 mg 4-22 tablet by ity of tablet 00:00: mouth [place] 00 every Medical morning Branch and evening. Magnesium 2020-0 Yes [id number] 400mg Take 400 [facility] Oxide 420 4-22 mg by ity of mg Tab 00:00: mouth [place] 00 daily. Medical Branch potassium 2020-0 Yes [id number] 20meq Take 20 [facility] chloride 20 4-22 mEq by ity of mEq packet 00:00: mouth [place] 00 daily. Medical Take with Branch lasix in the morning isosorbide 2020-0 Yes [id number] 15mg Take 0.5 [facility] mononitrate 4-22 tablets by it y of 30 mg 24 hr 00:00: mouth [place] tablet 00 daily. Medical Hold if Branch systolic blood pressure less than 120 Insulin 2020-0 Yes [id number] 10U inject 10 [facility] Glargine 4-22 Units ity of 100 unit/mL 00:00: under the [place] (3 mL) 00 skin at Medical injection bedtime. Branch Magnesium 2020-0 Yes [id number] 400mg Take 400 [facility] Oxide 420 4-22 mg by ity of mg Tab 00:00: mouth [place] 00 daily. Medical Branch vitamin 2020-0 2020- No [id number] 1000ug Take 1 Univers B-12 1,000 4-22 07-22 tablet by ity of mcg tablet 00:00: 04:59 mouth [place] 00 :00 daily for Medical 90 days. Branch vitamin 2020-0 2020- No [id number] 1000ug Take 1 Univers B-12 1,000 4-22 07-22 tablet by ity of mcg tablet 00:00: 04:59 mouth [place] 00 :00 daily for Medical 90 days. Branch vitamin 2020-0 2020- No [id number] 1000ug Take 1 [facility] B-12 1,000 4-22 07-22 tablet by ity of mcg tablet 00:00: 04:59 mouth [place] 00 :00 daily for Medical 90 days. Branch vitamin 2020-0 2020- No [id number] 1000ug Take 1 [facility] B-12 1,000 4-22 07-22 tablet by ity of mcg tablet 00:00: 04:59 mouth [place] 00 :00 daily for Medical 90 days. Branch glipiZIDE 5 2020- No [id number] 2.5mg Take 0.5 [facility] mg tablet 03-07-23 tablets by ity of 00:00: 04:59 mouth 2 [place] 00 :00 (two) Medical times Branch daily before breakfast and dinner for 30 days. metoprolol 2019- 2020- No [id number] 25mg Take 1 [facility] succinate - 05-23 tablet by ity of XL 25 mg 24 00:00: 04:59 mouth 2 [place] hr tablet 00 :00 (two) Medical times Branch daily for 30 days. OLANZapine 2019- 2020- No [id number] 2.5mg Take 1 [facility] 2.5 mg -06 04-23 tablet by ity of tablet 00:00: 04:59 mouth at [place] 00 :00 bedtime Medical for 30 Branch days. ranolazine 2019- 2020- No [id number] 1000mg Take 2 [facility] 500 mg 12 -06 04-23 tablets by ity of hr tablet 00:00: 04:59 mouth [place] 00 :00 every 12 Medical (twelve) Branch hours for 30 days. aspirin 81 2019- 2020- No [id number] 81mg Take 1 [facility] mg chewable -06 04-23 tablet by it y of tablet 00:00: 04:59 mouth [place] 00 :00 daily with Medical breakfast Branch for 30 days. atorvastati 2019- 2020- No [id number] 40mg Take 1 Univers n 40 mg -06 04-23 tablet by ity of tablet 00:00: 04:59 mouth at [place] 00 :00 bedtime Medical for 30 Branch days. glipiZIDE 5 2020- No [id number] 2.5mg Take 0.5 [facility] mg tablet 03-07-23 tablets by ity of 00:00: 04:59 mouth 2 [place] 00 :00 (two) Medical times Branch daily before breakfast and dinner for 30 days. metoprolol 2019- 2020- No [id number] 25mg Take 1 [facility] succinate 4- 05-23 tablet by ity of XL 25 mg 24 00:00: 04:59 mouth 2 [place] hr tablet 00 :00 (two) Medical times Branch daily for 30 days. OLANZapine 2019- 2020- No [id number] 2.5mg Take 1 [facility] 2.5 mg 4-22 05-23 tablet by ity of tablet 00:00: 04:59 mouth at [place] 00 :00 bedtime Medical for 30 Branch days. ranolazine 2020-0 2020- No [id number] 1000mg Take 2 [facility] 500 mg 12 4-22 05-23 tablets by ity of hr tablet 00:00: 04:59 mouth [place] 00 :00 every 12 Medical (twelve) Branch hours for 30 days. aspirin 81 2019-0 2020- No [id number] 81mg Take 1 [facility] mg chewable 4-22 05-23 tablet by it y of tablet 00:00: 04:59 mouth [place] 00 :00 daily with Medical breakfast Branch for 30 days. atorvastati 2019-0 2020- No [id number] 40mg Take 1 [facility] n 40 mg 4-22 05-23 tablet by ity of tablet 00:00: 04:59 mouth at [place] 00 :00 bedtime Medical for 30 Branch days. glipiZIDE 5 2019-0 2020- No [id number] 2.5mg Take 0.5 [facility] mg tablet 4- 05-23 tablets by ity of 00:00: 04:59 mouth 2 [place] 00 :00 (two) Medical times Branch daily before breakfast and dinner for 30 days. metoprolol 2019-0 2020- No [id number] 25mg Take 1 [facility] succinate 4-22 05-23 tablet by ity of XL 25 mg 24 00:00: 04:59 mouth 2 [place] hr tablet 00 :00 (two) Medical times Branch daily for 30 days. OLANZapine 2020-0 2020- No [id number] 2.5mg Take 1 [facility] 2.5 mg 4-22 05-23 tablet by ity of tablet 00:00: 04:59 mouth at [place] 00 :00 bedtime Medical for 30 Branch days. ranolazine 2020-0 2020- No [id number] 1000mg Take 2 [facility] 500 mg 12 4-22 05-23 tablets by ity of hr tablet 00:00: 04:59 mouth [place] 00 :00 every 12 Medical (twelve) Branch hours for 30 days. aspirin 81 2020-0 2020- No [id number] 81mg Take 1 [facility] mg chewable 4-22 05-23 tablet by it y of tablet 00:00: 04:59 mouth [place] 00 :00 daily with Medical breakfast Branch for 30 days. atorvastati 2019- No [id number] 40mg Take 1 [facility] n 40 mg 03-07-23 tablet by ity of tablet 00:00: 04:59 mouth at [place] 00 :00 bedtime Medical for 30 Branch days. glipiZIDE 5 2019- No [id number] 2.5mg Take 0.5 [facility] mg tablet 03-07-23 tablets by ity of 00:00: 04:59 mouth 2 [place] 00 :00 (two) Medical times Branch daily before breakfast and dinner for 30 days. metoprolol 2019- No [id number] 25mg Take 1 [facility] succinate 03-07-23 tablet by ity of XL 25 mg 24 00:00: 04:59 mouth 2 [place] hr tablet 00 :00 (two) Medical times Branch daily for 30 days. ranolazine 2019- No [id number] 1000mg Take 2 [facility] 500 mg 12 03-07-23 tablets by ity of hr tablet 00:00: 04:59 mouth [place] 00 :00 every 12 Medical (twelve) Branch hours for 30 days. atorvastati 2019- No [id number] 40mg Take 1 [facility] n 40 mg 03-07-23 tablet by ity of tablet 00:00: 04:59 mouth at [place] 00 :00 bedtime Medical for 30 Branch days. furosemide 2019- No [id number] 40mg Take 1 [facility] 40 mg -06 04-08 tablet by ity of tablet 00:00: 00:00 mouth [place] 00 :00 every Medical morning Branch and evening. aspirin 81 2019- No [id number] 81mg Take 1 [facility] mg chewable - 05-08 tablet by it y of tablet 00:00: 00:00 mouth [place] 00 :00 daily with Medical breakfast Branch for 30 days. isosorbide 2020- No [id number] 15mg Take 0.5 [facility] mononitrate -06 04-08 tablets by i ty of 30 mg 24 hr 00:00: 00:00 mouth [place] tablet 00 :00 daily. Medical Hold if Branch systolic blood pressure less than 120 Insulin 2019- No [id number] 10U inject 10 [facility] Glargine - 05-08 Units ity of 100 unit/mL 00:00: 00:00 under the [place] (3 mL) 00 :00 skin at Medical injection bedtime. Branch glipiZIDE 5 2020- No [id number] 2.5mg Take 0.5 [facility] mg tablet 03-07 05-08 tablets by ity of 00:00: 00:00 mouth 2 [place] 00 :00 (two) Medical times Branch daily before breakfast and dinner for 30 days. metoprolol 2019- 2020- No [id number] 25mg Take 1 [facility] succinate - 05-08 tablet by ity of XL 25 mg 24 00:00: 00:00 mouth 2 [place] hr tablet 00 :00 (two) Medical times Branch daily for 30 days. ranolazine 2019- 2020- No [id number] 1000mg Take 2 [facility] 500 mg 12 - 05-08 tablets by ity of hr tablet 00:00: 00:00 mouth [place] 00 :00 every 12 Medical (twelve) Branch hours for 30 days. furosemide 2019- 2020- No [id number] 40mg Take 1 [facility] 40 mg -06 04-08 tablet by ity of tablet 00:00: 00:00 mouth [place] 00 :00 every Medical morning Branch and evening. aspirin 81 2019-2019- No [id number] 81mg Take 1 [facility] mg chewable - 05-08 tablet by it y of tablet 00:00: 00:00 mouth [place] 00 :00 daily with Medical breakfast Branch for 30 days. atorvastati 2019- 2020- No [id number] 40mg Take 1 [facility] n 40 mg - 05-08 tablet by ity of tablet 00:00: 00:00 mouth at [place] 00 :00 bedtime Medical for 30 Branch days. Magnesium 2019- 2020- No [id number] 400mg Take 400 [facility] Oxide 420 - 05-08 mg by ity of mg Tab 00:00: 00:00 mouth [place] 00 :00 daily. Medical Branch vitamin 2019- 2020- No [id number] 1000ug Take 1 [facility] B-12 1,000 - 05-08 tablet by ity of mcg tablet 00:00: 00:00 mouth [place] 00 :00 daily for Medical 90 days. Branch isosorbide 2019- 2020- No [id number] 15mg Take 0.5 [facility] mononitrate -22 05-08 tablets by i ty of 30 mg 24 hr 00:00: 00:00 mouth [place] tablet 00 :00 daily. Medical Hold if Branch systolic blood pressure less than 120 OLANZapine 2019- 2020- No [id number] 2.5mg Take 1 Univers 2.5 mg - 05-07 tablet by ity of tablet 00:00: 00:00 mouth at [place] 00 :00 bedtime Medical for 30 Branch days. temazepam 2019- 2020- No [id number] 15mg Take 1 U nivers 15 mg 03-07 05-07 capsule by ity of capsule 00:00: 00:00 mouth at [place] 00 :00 bedtime as Medical needed for Branch Insomnia. potassium 2019- 2020- No [id number] 20meq Take 20 Univers chloride 20 -22 05-07 mEq by ity o f mEq packet 00:00: 00:00 mouth [place] 00 :00 daily. Medical Take with Branch lasix in the morning OLANZapine 2019-2019- No [id number] 2.5mg Take 1 [facility] 2.5 mg 03-07-07 tablet by ity of tablet 00:00: 00:00 mouth at [place] 00 :00 bedtime Medical for 30 Branch days. temazepam 2019-2019- No [id number] 15mg Take 1 U nivers 15 mg - 05-07 capsule by ity of capsule 00:00: 00:00 mouth at [place] 00 :00 bedtime as Medical needed for Branch Insomnia. potassium 2019- 2020- No [id number] 20meq Take 20 Univers chloride 20 -22 05-07 mEq by ity o f mEq packet 00:00: 00:00 mouth [place] 00 :00 daily. Medical Take with Branch lasix in the morning isosorbide 2019-2019- No 60mg 60 mg, Univ ers mononitrate - 04-21 Oral, ity of (IMDUR) 24 14:00: 13:43 DAILY, [place] hr tablet 00 :56 First dose Medi birdie 60 mg on Thu [place] 03/06/20 at 0900, Until Discontinu ed, Routine OLANZapine 2019- Yes 2.5mg 2.5 mg, Uni vers (ZyPREXA) 4-21 Oral, QHS, ity of tablet 2.5 02:00: First dose [place] mg 00 on [facility] 03/05/20 at Branch 2100, Until Discontinu ed, Routine insulin 2020-0 Yes 10U 10 Units, Unive rs glargine 4-21 Subcutaneo ity o f (LANTUS 02:00: us, QHS, [place] U-100) 00 First dose Medical injection on [facility] Branch 10 Units 03/05/20 at 2100, Until Discontinu ed, Routine donepezil 2020-0 Yes 5mg 5 mg, Univers (ARICEPT) 4-21 Oral, QHS, ity of tablet 5 mg 02:00: First dose [place] 00 on [facility] 03/05/20 at Branch 2100, Until Discontinu ed, Routine atorvastati 2020-0 Yes 40mg 40 mg, Univ ers n (LIPITOR) 4-21 Oral, QHS, it y of tablet 40 02:00: First dose [place] mg 00 on [facility] 03/05/20 at Branch 2100, Until Discontinu ed, Routine isosorbide 2020-0 2020- No 30mg 30 mg, Univ ers mononitrate 03-05-20 Oral, ity of (IMDUR) 24 15:30: 15:21 ONCE, 1 [place] hr tablet 00 :00 dose, [facility] Medic al 30 mg 03/05/20 at Branch 1030, Routine spironolact 2020-0 Yes 12.5mg 12.5 mg, Univers one 4-20 Oral, ity of (ALDACTONE) 14:00: DAILY, [place] tablet 12.5 00 First dose Me dical mg on [facility] 03/05/20 at 0900, Until Discontinu ed, Routine memantine 2020-0 Yes 10mg 10 mg, Univer s (NAMENDA) 4-20 Oral, ity of tablet 10 14:00: DAILY, [place] mg 00 First dose Medical on [facility] 03/05/20 at 0900, Until Discontinu ed, Routine
solar crew member approving Restricted medication : MEGADC lisinopril 2020-0 2020- No 5mg 5 mg, Unive rs (PRINIVIL,Z 03-05-21 Oral, ity of ESTRIL) 14:00: 13:44 DAILY, [place] tablet 5 mg 00 :01 First dose Me dical on [facility] 03/05/20 at 0900, Until Discontinu ed, Routine isosorbide 2020-0 2020- No 30mg 30 mg, Univ ers mononitrate 4-20 04-20 Oral, ity of (IMDUR) 24 14:00: 14:20 DAILY, [place] hr tablet 00 :04 First dose Medi birdie 30 mg on Thu03/05/20 at 0900, Until Discontinu ed, Routine ranolazine 2020-0 Yes 500mg 500 mg, Uni vers (RANEXA) 12 4-20 Oral, ity of hr tablet 13:00: Q12H, [place] 500 mg 00 First dose Medical on [facility] 03/05/20 at 0800, Until Discontinu ed, Routine metoprolol 2020-0 Yes 25mg 25 mg, Unive rs succinate 4-20 Oral, BID, ity of XL (TOPROL 13:00: First dose [place] XL) tablet 00 on [facility] Medical 25 mg 03/05/20 at Branch 0800, Until Discontinu ed, Routine magnesium 2020-0 Yes 400mg 400 mg, Univ ers oxide 4-20 Oral, BID, ity of (MAG-OX 13:00: First dose [place] 400) tablet 00 on [facility] Medica l 400 mg 03/05/20 at Branch 0800, Until Discontinu ed, Routine aspirin 2020-0 Yes 81mg 81 mg, Univers chewable -20 Oral, QAM ity of tablet 81 13:00: WITH [place] mg 00 BREAKFAST, Medical First dose Branch on [facility] 03/05/20 at 0800, Until Discontinu ed, Routine Sliding 2020-0 Yes Subcutaneo Univ ers Scale 4-20 us, AC+HS, ity of Insulin-Reg 12:30: First dose [place] ular + Fsbg 00 on [facility] Medica l Testing 03/05/20 at Branch 0730, Until Discontinu ed, Routine glipiZIDE 2020-0 2020- No 5mg 5 mg, Univer s (GLUCOTROL) -20 04-22 Oral, ity of tablet 5 mg 12:30: 19:41 BIDAC, [place] 00 :44 First dose Medical on [facility] 03/05/20 at 0730, Until Discontinu ed, Routine [...] injection 42 Starting Medica l 25 mL [facility] 03/04/20 at 2202, Until Discontinu ed, ADAMA, Blood Glucose < or = 70 mg/dL and patient is unable to swallow or has mental status changes. furosemide 2020-0 Yes 40mg 40 mg, Unive rs (LASIX) 4-20 Oral, ity of tablet 40 03:00: QAM+PM, [place] mg 00 First dose Medical on [facility] 03/04/20 at 2200, Until Discontinu ed, Routine cyanocobala 2020-0 Yes 1000ug 1,000 mcg, Univers min 4-20 Subcutaneo ity of (VITAMIN 03:00: us, Q24H, [place] B12) 00 First dose Medical injection on [facility] 1,000 mcg 03/04/20 at 2200, Until Discontinu ed, Routine heparin 2020-0 Yes 5000U 5,000 Univers (porcine) 4-20 Units, ity of injection 03:00: Subcutaneo [place] 5,000 Units 00 us, Q8H, Medi birdie First dose Branch on [place] 03/04/20 at 2200, Until Discontinu ed, Routine ondansetron 2020-0 Yes 4mg 4 mg, Slow Univers (ZOFRAN 4-20 IV Push, ity of (PF)) 02:34: Q6HPRN, [place] injection 4 40 Starting Medi birdie mg [facility] 03/04/20 at 2134, Until Discontinu ed, Routine, Nausea and Vomiting (N/V) traMADol 2020-0 2020- No 50mg 50 mg, Univer s (ULTRAM) 4-20 04-22 Oral, ity of tablet 50 02:34: 02:33 Q8HPRN, [place] mg 23 :23 Starting Medical [facility] 03/04/20 at 2134, Until 03/06/20 at 2133, Routine, Pain (scale 4-6) acetaminoph 2020-0 Yes 650mg 650 mg, Un mel en 4-20 Oral, ity of (TYLENOL) 02:34: Q6HPRN, [place] tablet 650 20 Starting Medic al mg [place] Branch 03/04/20 at 2134, Until Discontinu ed, Routine, Pain (scale 1-3) lisinopril 2020-0 Yes [id number] 5mg Take 1 Univers 5 mg tablet 4-18 tablet by ity of 00:00: mouth [place] 00 daily. Medical Branch isosorbide 2020-0 Yes [id number] 30mg Take 1 [facility] mononitrate 4-18 tablet by ity of 30 mg 24 hr 00:00: mouth [place] tablet 00 daily. Medical Branch lisinopril 2020-0 Yes [id number] 5mg Take 1 [facility] 5 mg tablet 4-18 tablet by ity of 00:00: mouth [place] 00 daily. Medical Branch isosorbide 2020-0 Yes [id number] 30mg Take 1 [facility] mononitrate 4-18 tablet by ity of 30 mg 24 hr 00:00: mouth [place] tablet 00 daily. Medical Branch lisinopril 2019-0 2020- No [id number] 5mg Take 1 [facility] 5 mg tablet 4-18 04-22 tablet by it y of 00:00: 00:00 mouth [place] 00 :00 daily. Medical Branch isosorbide 2019-0 2020- No [id number] 30mg Take 1 [facility] mononitrate 4-18 04-22 tablet by it y of 30 mg 24 hr 00:00: 00:00 mouth [place] tablet 00 :00 daily. Medical Branch memantine-d 2019-0 Yes 1{capsu Take 1 U nivers onepezil 4-17 le} capsule by ity o f (NAMZARIC) 17:34: mouth [place] 28-10 mg 27 daily. Medical CSpX Branch folic 2019-0 Yes Take by Univers acid/vit B 4-17 mouth. ity of complex and 17:34: [place] C (B 27 Medical COMPLEX-VIT Branch RAZA C-FOLIC ACID ORAL) Cholecalcif 2019-0 Yes Take by Un mel ann, 4-17 mouth. ity of Vitamin D3, 17:34: [place] 2,000 unit 27 Medical capsule Branch metoprolol 2020-0 Yes 12.5mg Take 12.5 Univers tartrate 4-17 mg by ity of 12.5 mg 17:34: mouth 2 [place] 27 (two) Medical times Branch daily. MULTIVITAMI 2019-0 Yes Take by Un mel N ORAL 4-17 mouth. ity of 17:34: [place] [address] Medical Branch thiamine 2020-0 Yes 100mg Take 100 Univ ers (VITAMIN 4-17 mg by ity of B-1) 100 mg 17:34: mouth [place] tablet 27 daily. Medical Branch aspirin 81 2020-0 Yes 81mg Take 81 mg U nivers mg chewable 4-17 by mouth ity of tablet 17:34: daily. [place] [address] Medical Branch atorvastati 2020-0 Yes 40mg Take 40 mg Univers n 40 mg 4-17 by mouth ity of tablet 17:34: at [place] [address] bedtime. Medical Branch NaCl 0.9% 2020-0 Yes 10mL Inject 10 Uni vers (NS) Soln 4-17 mL ity of 10 mL with 17:34: intravenou [place] sodium 27 sly once Medical chloride now. Branch 2.5 mEq/mL SolP 17.125 mEq memantine-d 2020-0 Yes 1{capsu Take 1 U nivers onepezil 4-17 le} capsule by itazra o f (NAMZARIC) 17:34: mouth [place] 28-10 mg 27 daily. Medical CSpX Branch folic 2020-0 Yes Take by Univers acid/vit B 4-17 mouth. ity of complex and 17:34: [place] C ( 27 Medical COMPLEX-VIT Branch RAZA C-FOLIC ACID ORAL) Cholecalcif 2020-0 Yes Take by Un mel ann, 4-17 mouth. ity of Vitamin D3, 17:34: [place] 2,000 unit 27 Medical capsule Branch metoprolol 2020-0 Yes 12.5mg Take 12.5 Univers tartrate 4-17 mg by ity of 12.5 mg 17:34: mouth 2 [place] 27 (two) Medical times Branch daily. MULTIVITAMI 2020-0 Yes Take by Un mel N ORAL 4-17 mouth. ity of 17:34: [place] [address] Medical Branch thiamine 2020-0 Yes 100mg Take 100 Univ ers (VITAMIN 4-17 mg by ity of B-1) 100 mg 17:34: mouth [place] tablet 27 daily. Medical Branch aspirin 81 2020-0 Yes 81mg Take 81 mg U nivers mg chewable 4-17 by mouth ity of tablet 17:34: daily. [place] [address] Medical Branch atorvastati 2020-0 Yes 40mg Take [...] Until Discontinu ed, Routine furosemide 2020-0 Yes [id number] 40mg Take 1 [facility] 40 mg 4-17 tablet by ity of tablet 00:00: mouth [place] 00 every Medical morning Branch and evening. potassium 2020-0 Yes [id number] 20meq Take 20 Univers chloride 20 4-17 mEq by ity of mEq packet 00:00: mouth [place] 00 daily. Medical Branch vitamin 2020-0 Yes [id number] 1000ug Take 1 U nivers B-12 1,000 4-17 tablet by ity of mcg tablet 00:00: mouth [place] 00 daily. Medical Branch furosemide 2020-0 Yes [id number] 40mg Take 1 [facility] 40 mg 4-17 tablet by ity of tablet 00:00: mouth [place] 00 every Medical morning Branch and evening. potassium 2020-0 Yes [id number] 20meq Take 20 Univers chloride 20 4-17 mEq by ity of mEq packet 00:00: mouth [place] 00 daily. Medical Branch vitamin 2020-0 Yes [id number] 1000ug Take 1 U nivers B-12 1,000 4-17 tablet by ity of mcg tablet 00:00: mouth [place] 00 daily. Medical Branch furosemide 2020-0 2020- No [id number] 40mg Take 1 [facility] 40 mg 4-17 04-22 tablet by ity of tablet 00:00: 00:00 mouth [place] 00 :00 every Medical morning Branch and evening. potassium 2020-0 2020- No [id number] 20meq Take 20 [facility] chloride 20 4-17 04-22 mEq by ity o f mEq packet 00:00: 00:00 mouth [place] 00 :00 daily. Medical Branch vitamin 2020-0 2020- No [id number] 1000ug Take 1 Univers B-12 1,000 -17 04-22 tablet by ity of mcg tablet 00:00: 00:00 mouth [place] 00 :00 daily. Medical Branch cyanocobala 2020-0 Yes 1000ug 1,000 mcg, [facility] min 4-16 Subcutaneo ity of (VITAMIN 20:45: us, Q24H, [place] B12) 00 First dose Medical injection on [facility] Branch 1,000 mcg 03/01/20 at 1545, Until Discontinu ed, Routine isosorbide 2020-0 Yes 30mg 30 mg, Unive rs mononitrate 4-16 Oral, ity of (IMDUR) 24 14:00: DAILY, [place] hr tablet 00 First dose Medi birdie 30 mg on [facility] Branch 03/01/20 at 0900, Until Discontinu ed, Routine memantine 2019-0 Yes 10mg 10 mg, Univer s (NAMENDA) 4-16 Oral, ity of tablet 10 14:00: DAILY, [place] mg 00 First dose Medical on [facility] 03/01/20 at 0900, Until Discontinu ed, Routine
solar crew member approving Restricted medication : MEGADC lisinopril 2020-0 Yes 5mg 5 mg, Univer s (PRINIVIL,Z 4-16 Oral, ity of ESTRIL) 14:00: DAILY, [place] tablet 5 mg 00 First dose Me dical on [facility] Branch 03/01/20 at 0900, Until Discontinu ed, Routine enoxaparin 2020-0 Yes 30mg 30 mg, Unive rs (LOVENOX) 4-16 Subcutaneo ity of injection 14:00: [place], [place]ILY, [place] 30 mg 00 First dose Medical on [facility] 03/01/20 at 0900, Until Discontinu ed, Routine KCL 2020-0 2020- No 20meq 20 mEq, Univers (KLOR-CON -16 04-16 Oral, ity of M20) tablet 14:00: 13:26 DAILY, [place] 20 mEq 00 :35 First dose Medical on [facility] 4/16/20 at 0900, Until Discontinu ed, Routine KCL 2020-0 Yes 40meq 40 mEq, Univers (KLOR-CON - Oral, BID, ity of M20) tablet 13:30: First dose [place] 40 mEq 00 on Thu Medical 03/01/20 at Branch 0830, Until Discontinu ed, Routine magnesium 2020-0 2020- No 2g 2 g, IV Univ ers sulfate in 03-01 Infusion, ity of water 2 03:30: 03:30 ONCE, 1 [place] gram/50 mL 00 :00 dose, Thu [facility] birdie (4 %) 2 g 02/29/20 at [facility] piggyback 2230 metoprolol 2020-0 2020- No 5mg 5 mg, Slow Univers (LOPRESSOR) 03-01 IV Push, ity of injection 5 03:30: 03:37 ONCE, 1 [place] mg 00 :00 dose, Thu [facility] 02/29/20 at Branch 2230, ADAMA glipiZIDE 2020-0 Yes 5mg 5 mg, Univers (GLUCOTROL) 03-01 Oral, ity of tablet 5 mg 02:45: BIDAC, [place] 00 First dose Medical on [facility] 02/29/20 at 2145, Until Discontinu ed, Routine insulin 2020-0 Yes 10U 10 Units, Unive rs glargine 03-01 Subcutaneo ity o f (LANTUS 02:45: us, QHS, [place] U-100) 00 First dose Medical injection on Thu [facility] 10 Units 02/29/20 at 2145, Until Discontinu [...] mg 00 First dose Medical on Thu [facility] 02/29/20 at 2130, Until Discontinu ed, Routine [...] [place] 40 mEq 00 :00 dose, Thu Medical 02/29/20 at Branch 2000, Routine acetaminoph 2020-0 Yes 650mg 650 mg, Un mel en 4-15 Oral, ity of (TYLENOL) 23:57: Q6HPRN, [place] tablet 650 25 Starting Medic al mg Wed Branch 02/29/20 at 1857, Until Discontinu ed, Routine, Pain (scale 1-3) NaCl 0.9% 2020-0 2020- No 500mL at 999 Univ ers (NS) bolus 4-15 04-15 mL/hr, 500 it y of infusion 23:30: 23:37 mL, IV [place] 500 mL 00 :00 Infusion, Medical ONCE, 1 Branch dose, 02/29/20 at 1830, ADAMA acetaminoph 2019- No 650mg 650 mg, U nivers en 02-28-15 Oral, ity of (TYLENOL) 23:00: 22:36 ONCE, 1 [place] tablet 650 00 :00 dose, Thu Medi birdie mg 02/29/20 at Branch 1800, ADAMA donepezil 5 2019- Yes 5mg Take 5 mg U nivers mg tablet 02-14 by mouth ity of 00:00: daily. [place] 00 Medical Branch donepezil 5 2019- No 5mg Take 5 mg Univers mg tablet 02-1408 by mouth ity o f 00:00: 00:00 daily. [place] 00 :00 Medical Branch nitroglycer 2019- No [...] [place] 00 :00 daily. Medical Branch memantine-d Yes 1{capsu Take 1 U nivers onepezil 3-03 le} capsule by ity o f (NAMZARIC) 23:00: mouth [place] 28-10 mg 52 daily. Medical CSpX Branch folic Yes Take by Univers acid/vit B 3-03 [...] ity of Vitamin D3, 23:00: [place] 2,000 [facility] 52 Medical capsule Branch metoprolol 2020-0 Yes 12.5mg Take 12.5 Univers tartrate 3-03 mg by ity of 12.5 mg 23:00: mouth 2 [place] 52 (two) Medical times Branch daily. MULTIVITAMI 2020-0 Yes Take by Un mel N ORAL 3-03 mouth. ity of 23:00: [place] [address] Medical Branch thiamine 2020-0 Yes 100mg Take 100 Univ ers (VITAMIN 3-03 mg by ity of B-1) 100 mg 23:00: mouth [place] tablet 52 daily. Medical Branch aspirin 81 2020-0 Yes 81mg Take 81 mg U nivers mg chewable 3-03 by mouth ity of tablet 23:00: daily. [place] [address] Medical Branch atorvastati 2020-0 Yes 40mg Take 40 mg Univers n 40 mg 3-03 by mouth ity of tablet 23:00: at [place] [address] bedtime. Medical Branch NaCl 0.9% 2020-0 Yes [...] by ity of mEq packet 23:00: mouth [place] 52 daily. Medical Branch Cholecalcif 2020-0 Yes Take by Un mel ann, 3-03 mouth. ity of Vitamin D3, 23:00: [place] 2,000 unit 52 Medical capsule Branch metoprolol 2020-0 Yes 12.5mg Take 12.5 Univers tartrate 3-03 mg by ity of 12.5 mg 23:00: mouth 2 [place] [address] (two) Medical times Branch daily. MULTIVITAMI 2020-0 Yes Take by Un mel N ORAL 3-03 mouth. ity of 23:00: [place] [address] Medical Branch thiamine 2020-0 Yes 100mg Take 100 Univ ers (VITAMIN 3-03 mg by ity of B-1) 100 mg 23:00: mouth [place] tablet 52 daily. Medical Branch aspirin 81 2020-0 Yes 81mg Take 81 mg U nivers mg chewable 3-03 by mouth ity of tablet 23:00: daily. [place] [address] Medical Branch atorvastati 2020-0 Yes 40mg Take 40 mg Univers n 40 mg 3-03 by mouth ity of tablet 23:00: at [place] [address] bedtime. Medical Branch NaCl 0.9% 2020-0 Yes [...] by ity of mEq packet 23:00: mouth [place] 52 daily. Medical Branch Cholecalcif 2020-0 Yes Take by Un mel ann, 3-03 mouth. ity of Vitamin D3, 23:00: [place] 2,000 unit 52 Medical capsule Branch metoprolol 2020-0 Yes 12.5mg Take 12.5 Univers tartrate 3-03 mg by ity of 12.5 mg 23:00: mouth 2 [place] [address] (two) Medical times Branch daily. MULTIVITAMI 2020-0 [...] by mouth ity of tablet 23:00: daily. [place] [address] Medical Branch atorvastati 2020-0 Yes 40mg Take 40 mg Univers n 40 mg 3-03 by mouth ity of tablet 23:00: at [place] [address] bedtime. Medical Branch NaCl 0.9% 2020-0 Yes [...] by ity of mEq packet 23:00: mouth [place] 52 daily. Medical Branch Cholecalcif 2020-0 Yes [...] N ORAL 3-03 mouth. ity of 23:00: [place] 52 Medical Branch thiamine 2020-0 Yes 100mg Take 100 Univ ers (VITAMIN 3-03 mg by ity of B-1) 100 mg 23:00: mouth [place] tablet 52 daily. Medical Branch aspirin 81 2020-0 Yes 81mg Take 81 mg U nivers mg chewable 3-03 by mouth ity of tablet 23:00: daily. [address] Branch atorvastati 2019-0 Yes 40mg Take 40 mg Univers n 40 mg 3-03 by mouth ity of tablet 23:00: at [place] [address] bedtime. Medical Branch NaCl 0.9% 2019-0 Yes [...] First dose [place] mg 00 on [facility] 01/16/20 at Branch 2100, Until Discontinu ed, Routine ranolazine 2019-0 2020- No [id number] 500mg Take 1 Univers 500 mg 12 01-16- tablet by ity of hr tablet 00:00: 04:59 mouth [place] 00 :00 every 12 Medical (twelve) Branch hours for 30 days. ranolazine 2020-0 2020- No [id number] 500mg Take 1 Univers 500 mg 12 01-16 04- tablet by ity of hr tablet 00:00: 04:59 mouth [place] 00 :00 every 12 Medical (twelve) Branch hours for 30 days. ranolazine 2020-0 2020- No [id number] 500mg Take 1 Univers 500 mg 12 01-16 04-03 tablet by ity of hr tablet 00:00: 04:59 mouth [place] 00 :00 every 12 Medical (twelve) Branch hours for 30 days. ranolazine 2020-0 2020- No [id number] 500mg Take 1 Univers 500 mg 01-16 04-03 tablet by ity of hr tablet 00:00: 04:59 mouth [place] 00 :00 every 12 Medical (twelve) Branch hours for 30 days. ranolazine 2019-0 Yes 500mg 500 mg, Uni vers (RANEXA) 12 -02 Oral, ity of hr tablet 22:30: Q12H, [place] 500 mg 00 First dose Medical on [facility] 01/16/20 at 1630, Until Discontinu ed, Routine insulin 2019-0 Yes 30U 30 Units, Unive rs glargine 3-02 Subcutaneo ity o f (LANTUS 15:00: us, DAILY, [place] U-100) 00 First dose Medical injection on [facility] Branch 30 Units 01/16/20 at 0900, Until Discontinu ed furosemide 2020-0 Yes 40mg 40 mg, Unive rs (LASIX) 01-15 Oral, ity of tablet 40 15:00: DAILY, [place] mg 00 First dose Medical on [facility] Branch 01/16/20 at 0900, Until Discontinu ed, Routine aspirin 2020-0 Yes 81mg 81 mg, Univers chewable 01-15 Oral, ity of tablet 81 15:00: DAILY, [place] mg 00 First dose Medical on [facility] Branch 01/16/20 at 0900, Until Discontinu ed, Routine metoprolol 2020-0 Yes 12.5mg 12.5 mg, U nivers tartrate 01-15 Oral, BID, ity o f (LOPRESSOR) 14:00: First dose [place] tablet 12.5 00 on [facility] Medica l mg 01/16/20 at Branch 0800, Until Discontinu ed, Routine Sliding 2020-0 Yes Subcutaneo Univ ers Scale 01-15 us, Q6H, ity of Insulin-Reg 12:00: First dose [place] ular + Fsbg 00 on [facility] Medica l Testing 01/16/20 at Branch 0600, [...] IV ity of (D50W) 10:52: Push, PRN, [place] injection 33 Starting Medica l 25 mL [facility] 01/16/20 Branch at 0452, Until Discontinu ed, [...] Yes 4mg 4 mg, Slow Univers (ZOFRAN 3 IV Push, ity of (PF)) 07:55: Q6HPRN, [place] injection 4 01 Starting Medi birdie mg 01/16/20 Branch at 0155, Until Discontinu ed, Routine, Nausea and Vomiting (N/V) morpHINE 2019-0 2020- No 2mg 2 mg, Slow Un mel injection 2 01-15 03-03 IV Push, ity of mg 07:54: 07:53 Q6HPN, [place] 55 :55 Starting Medical [facility] 01/16/20 Branch at 0154, Until Tu01/17/20 at 0153, Routine, Pain (scale 7-10) traMADol 2019-0 2020- No 50mg 50 mg, Univer s (ULTRAM) 01-15 03-04 Oral, ity of tablet 50 07:54: 07:53 Q8HPRN, [place] [facility] mg 47 :47 Starting Medical [facility] 01/16/20 Branch at 0154, Until Thu01/18/20 at 0153, Routine, Pain (scale 4-6) acetaminoph 2019-0 Yes 650mg 650 mg, Un mel en 01-15 Oral, ity of (TYLENOL) 07:54: [facility], [place] tablet 650 44 Starting Medic al mg [facility] 01/16/20 Branch at 0154, Until Discontinu ed, Routine, Pain (scale 1-3) insulin 2020-0 2020- No 8U 8 Units, Unive rs regular 01-15 03- Slow IV ity of human 06:45: 05:40 Push, [place] (HUMULIN R) 00 :00 ONCE, 1 Medic al injection 8 dose, Mon Bra nch Units 01/16/20 at 0045, STAT heparin 2020-0 Yes 1000U/h 1,000 Univer s 25,000 -02 Units/hr ity of unit/250 mL 06:00: (10 [place] (Premixed 00 mL/hr), IV Medi birdie Bag) in Infusion, Branch NaCl 0.45 % CONTINUOUS weight , Starting based Thu01/16/20 dosing [facility] at 0000, protocol Until Discontinu ed heparin 2020- No 4000U 4,000 Univers 1000 3 03-02 Units, IV ity of unit/mL 05:45: 05:47 Push, [place] injection 00 :00 ONCE, 1 Medical Soln 4,000 dose, [place] Bran ch Units 01/15/20 at 2345, ADAMA furosemide 2018-11 Yes [id number] 40mg Take 1 Univers 40 mg 0-26 tablet by ity of tablet 00:00: mouth [place] 00 daily. Medical Branch furosemide 2018-11 Yes [id number] 40mg Take 1 Univers 40 mg 0-26 tablet by ity of tablet 00:00: mouth [place] 00 daily. Medical Branch furosemide 2018-11 Yes [id number] 40mg Take 1 Univers 40 mg 0-26 tablet by ity of tablet 00:00: mouth [place] 00 daily. Medical Branch furosemide 2018-11 Yes [id number] 40mg Take 1 Univers 40 mg 0-26 tablet by ity of tablet 00:00: mouth [place] 00 daily. Medical Branch furosemide 2018-11 2020- No [id number] 40mg Take 1 Univers 40 mg 0-26 04-17 tablet by ity of tablet 00:00: 00:00 mouth [place] 00 :00 daily. Medical Branch magnesium 2018-11 Yes [id number] 400mg Take 400 Univers oxide 420 0-23 mg by ity of mg Tab 00:00: mouth [place] 00 daily. Medical Branch magnesium 2018- Yes [id number] 400mg Take 400 Univers oxide 420 0-23 mg by ity of mg Tab 00:00: mouth [place] 00 daily. Medical Branch magnesium 2018- Yes [id number] 400mg Take 400 Univers oxide 420 0-23 mg by ity of mg Tab 00:00: mouth [place] 00 daily. Medical Branch magnesium 2018- Yes [id number] 400mg Take 400 Univers oxide 420 0-23 mg by ity of mg Tab 00:00: mouth [place] 00 daily. Medical Branch magnesium 2018- Yes [id number] 400mg Take 400 Univers oxide 420 0-23 mg by ity of mg Tab 00:00: mouth [place] 00 daily. Medical Branch magnesium 2018- Yes [id number] 400mg Take 400 Univers oxide 420 0-23 mg by ity of mg Tab 00:00: mouth [place] 00 daily. Medical Branch magnesium 2018- 2020- No [id number] 400mg Take 400 Univers oxide 420 0-23 04-22 mg by ity of mg Tab 00:00: 00:00 mouth [place] 00 :00 daily. Medical Branch Insulin 2018-0 Yes [id number] 30U inject 30 Univers Glargine 9-11 Units ity of 100 unit/mL 00:00: under the [place] (3 mL) 00 skin every Medical injection morning. Branch Insulin Yes [id number] 30U inject 30 Univers Glargine 9-11 Units ity of 100 unit/mL 00:00: under the [place] (3 mL) 00 skin every Medical injection morning. Branch Insulin Yes [id number] 30U inject 30 Univers Glargine 9-11 Units ity of 100 unit/mL 00:00: under the [place] (3 mL) 00 skin every Medical injection morning. Branch Insulin Yes [id number] 30U inject 30 Univers Glargine 9-11 Units ity of 100 unit/mL 00:00: under the [place] (3 mL) 00 skin every Medical injection morning. Branch Insulin Yes [id number] 30U inject 30 Univers Glargine 9-11 Units ity of 100 unit/mL 00:00: under the [place] (3 mL) 00 skin every Medical injection morning. Branch Insulin Yes [id number] 30U inject 30 Univers Glargine 9-11 Units ity of 100 unit/mL 00:00: under the [place] (3 mL) 00 skin every Medical injection morning. Branch Insulin Yes [id number] 30U inject 30 Univers Glargine 9-11 Units ity of 100 unit/mL 00:00: under the [place] (3 mL) 00 skin every Medical injection morning. Branch Insulin 2020- No [id number] 30U inject 30 Univers Glargine 9-11 04-22 [...] mg under ity of 15:26: the skin. [place] [address] Medical Branch Cholecalcif 0 Yes Take by Un mel ann, 5-10 mouth. ity of Vitamin D3, 15:26: [place] 2,000 unit 43 Medical capsule Branch metoprolol 0 Yes 12.5mg Take 12.5 Univers tartrate 5-10 mg by ity of 12.5 mg 15:26: mouth 2 [place] 43 (two) Medical times Branch daily. MULTIVITAMI 0 Yes Take by Un mel N ORAL 5-10 mouth. ity of 15:26: [place] [address] Medical Branch thiamine 0 Yes 100mg Take 100 Univ ers (VITAMIN 5-10 mg by ity of B-1) 100 mg 15:26: mouth [place] tablet 43 daily. Medical Branch aspirin 81 Yes 81mg Take 81 mg U nivers mg chewable 5-10 by mouth ity of tablet 15:26: daily. [place] [address] Medical Branch atorvastati 0 Yes 40mg Take 40 mg Univers n 40 mg 5-10 by mouth ity of tablet 15:26: at [place] 43 bedtime. Medical Branch furosemide 0 Yes 40mg Take 40 mg U nivers 40 mg 5-10 by mouth ity of tablet 15:26: daily. [place] [address] Medical Branch NaCl 0.9% 0 Yes 10mL [...] mg under ity of 15:26: the skin. [place] [address] Medical Branch Cholecalcif 0 Yes Take by Un mel ann, 5-10 mouth. ity of Vitamin D3, 15:26: [place] 2,000 unit 43 Medical capsule Branch metoprolol 0 Yes 12.5mg Take 12.5 Univers tartrate 5-10 mg by ity of 12.5 mg 15:26: mouth 2 [place] [address] (two) Medical times Branch daily. MULTIVITAMI 0 Yes Take by Un mel N ORAL 5-10 mouth. ity of 15:26: [place] [address] Medical Branch thiamine 2018-0 Yes 100mg Take 100 Univ ers (VITAMIN 5-10 mg by ity of B-1) 100 mg 15:26: mouth [place] tablet 43 daily. Medical Branch aspirin 81 0 Yes 81mg Take 81 mg U nivers mg chewable 5-10 by mouth ity of tablet 15:26: daily. [place] [address] Medical Branch atorvastati 0 Yes 40mg Take 40 mg Univers n 40 mg 5-10 by mouth ity of tablet 15:26: at [place] [address] bedtime. Medical Branch furosemide 0 Yes 40mg Take 40 mg U nivers 40 mg 5-10 by mouth ity of tablet 15:26: daily. [place] [address] Medical Branch NaCl 0.9% Yes 10mL Inject 10 Uni vers (NS) Soln 5-10 mL ity of 10 mL with 15:26: intravenou [place] sodium 43 sly once Medical chloride now. Branch 2.5 mEq/mL SolP 17.125 mEq insulin Yes [id number] 4U inject 4 U nivers lispro, 5-10 Units ity of human, 100 00:00: under the [place] unit/mL 00 skin 3 Medical injection (three) Branch times daily before meals. insulin 2018-0 Yes [id number] 4U inject 4 U nivers lispro, 5-10 Units ity of human, 100 00:00: under the [place] unit/mL 00 skin 3 Medical injection (three) Branch times daily before meals. insulin 2018-0 Yes [id number] 4U inject 4 U nivers lispro, 5-10 Units ity of human, 100 00:00: under the [place] unit/mL 00 skin 3 Medical injection (three) Branch times daily before meals. insulin 2018-0 Yes [id number] 4U inject 4 U nivers lispro, 5-10 Units ity of human, 100 00:00: under the [place] unit/mL 00 skin 3 Medical injection (three) Branch times daily before meals. insulin 2018-0 Yes [id number] 4U inject 4 U nivers lispro, 5-10 Units ity of human, 100 00:00: under the [place] unit/mL 00 skin 3 Medical injection (three) Branch times daily before meals. insulin 2018-0 Yes [id number] 4U inject 4 U nivers lispro, 5-10 Units ity of human, 100 00:00: under the [place] unit/mL 00 skin 3 Medical injection (three) Branch times daily before meals. Insulin 2018-0 Yes [id number] 18U inject Uni vers Glargine 5-10 18-24 ity of 100 unit/mL 00:00: Units [place] (3 mL) 00 under the Medical injection skin every Bran ch morning. insulin 2018-0 Yes [id number] 4U inject 4 U nivers lispro, 5-10 Units ity of human, 100 00:00: under the [place] unit/mL 00 skin 3 Medical injection (three) Branch times daily before meals. insulin 2018-0 Yes [id number] 4U inject 4 U nivers lispro, 5-10 Units ity of human, 100 00:00: under the [place] unit/mL 00 skin 3 Medical injection (three) Branch times daily before meals. insulin 2018-0 Yes [id number] 4U inject 4 U nivers lispro, 5-10 Units ity of human, 100 00:00: under the [place] unit/mL 00 skin 3 Medical injection (three) Branch times daily before meals. insulin 2018-0 Yes [id number] 4U inject 4 U nivers lispro, 5-10 Units ity of human, 100 00:00: under the [place] unit/mL 00 skin 3 Medical injection (three) Branch times daily before meals. insulin 2018-0 Yes [id number] 4U inject 4 U nivers lispro, 5-10 Units ity of human, 100 00:00: under the [place] unit/mL 00 skin 3 Medical injection (three) Branch times daily before meals. insulin 2020- No [id number] 4U inject 4 Univers lispro, 5-10 05-07 Units ity of human, 100 00:00: 00:00 under the [place] unit/mL 00 :00 skin 3 Medical injection (three) Branch times daily before meals. insulin 2020- No [id number] 4U inject 4 Univers lispro, 5-10 05-07 Units ity of human, 100 00:00: 00:00 under the [place] unit/mL 00 :00 skin 3 Medical injection (three) Branch times daily before meals. Insulin 2019- No [id number] 18U inject Un mel Glargine 5- 09-11 18-24 ity of 100 unit/mL 00:00: 00:00 Units [place] (3 mL) 00 :00 under the Medical injection skin every Bran ch morning. folic Yes Take by Univers acid/vit B 3-08 mouth. ity of complex and 16:39: [facility] ( 29 Medical COMPLEX-VIT Branch RAZA C-FOLIC ACID ORAL) potassium Yes 20meq Take 20 Univ ers chloride 20 3-08 mEq by ity of mEq packet 16:39: mouth [place] 29 daily. Medical Branch folic Yes Take by Univers acid/vit B 3-08 mouth. ity of complex and 16:39: [place] C ( 29 Medical COMPLEX-VIT Branch RAZA C-FOLIC ACID ORAL) potassium Yes 20meq Take 20 Univ ers chloride 20 3-08 mEq by ity of mEq packet 16:39: mouth [place] 29 daily. Medical Branch Potassium Potassium Yes [...] Yes Anneliese as [facility] Lasix Lasix Yes [place] [address] [facility] Isosorbide Isosorbide Yes [place] [address] [facility] [address] [facility] Lyrica Lyrica Yes [place] [facility] [address] [facility] Immunizations Ordered Filled Immunization Date Status Comments [facility] Immunization Name Name SARS-COV-2 COVID-19 2021-09-16 Completed Unive rsity of MODERNA VACCINE 00:00:00 [facility] SARS-COV-2 COVID-19 2021-09-16 Completed Unive rsity of MODERNA VACCINE 00:00:00 [facility] SARS-COV-2 COVID-19 2021-09-16 Completed Unive rsity of MODERNA VACCINE 00:00:00 [facility] SARS-COV-2 COVID-19 2021-08-17 Completed Unive rsity of MODERNA VACCINE 00:00:00 [facility] Influenza High Dose 2021-08-17 Completed Unive rsity of 00:00:00 [facility] SARS-COV-2 COVID-19 2021-08-17 Completed Unive rsity of MODERNA VACCINE 00:00:00 [facility] Influenza High Dose 2021-08-17 Completed Unive rsity of 00:00:00 [facility] SARS-COV-2 COVID-19 2021-08-17 Completed Unive rsity of MODERNA VACCINE 00:00:00 [facility] Influenza High Dose 2021-08-17 Completed Unive rsity of 00:00:00 [facility] Zoster(Zostavax)( 2020-09-14 Completed Unive rsity of ingles) 00:00:00 [facility] Zoster(Zostavax)( 2020-09-14 Completed Unive rsity of ingles) 00:00:00 [facility] Zoster(Zostavax)( 2020-09-14 Completed Unive rsity of ingles) 00:00:00 [place] [facility] Influenza High Dose 2020-07-13 Completed Unive rsity of 00:00:00 [facility] Influenza High Dose 2020-07-13 Completed Unive rsity of 00:00:00 [facility] Influenza High Dose 2020-07-13 Completed Unive rsity of 00:00:00 [facility] Influenza High Dose 2019-09-15 Completed Unive rsity of 00:00:00 [facility] Influenza High Dose 2019-09-15 Completed Unive rsity of 00:00:00 [facility] Influenza High Dose 2019-09-15 Completed Unive rsity of 00:00:00 [facility] Influenza Virus 2018-09-09 Completed Universit y of Vaccine 00:00:00 [facility] Influenza Virus 2018-09-09 Completed Universit y of Vaccine 00:00:00 [facility] Influenza Virus 2018-09-09 Completed Universit y of Vaccine 00:00:00 [facility] Influenza Virus 2018-09-09 Completed Universit y of Vaccine 00:00:00 [facility] Influenza Virus 2018-09-09 Completed Universit y of Vaccine 00:00:00 [facility] Influenza Virus 2018-09-09 Completed Universit y of Vaccine 00:00:00 [facility] Influenza Virus 2018-09-09 Completed Universit y of Vaccine 00:00:00 [facility] Influenza Virus 2018-09-09 Completed Universit y of Vaccine 00:00:00 [facility] Influenza Virus 2018-09-09 Completed Universit y of Vaccine 00:00:00 [facility] Influenza Virus 2018-09-09 Completed Universit y of Vaccine 00:00:00 [facility] Influenza Virus 2018-09-09 Completed Universit y of Vaccine 00:00:00 [facility] Influenza Virus 2018-09-09 Completed Universit y of Vaccine 00:00:00 [facility] Influenza Virus 2018-09-09 Completed Universit y of Vaccine 00:00:00 [facility] Influenza Virus 2018-09-09 Completed Universit y of Vaccine 00:00:00 [facility] Influenza Virus 2018-09-09 Completed Universit y of Vaccine 00:00:00 [facility] Influenza Virus 2018-09-09 Completed Universit y of Vaccine 00:00:00 [facility] Influenza Virus 2018-09-09 Completed Universit y of Vaccine 00:00:00 [facility] Influenza Virus 2018-09-09 Completed Universit y of Vaccine 00:00:00 [facility] Influenza Virus 2018-09-09 Completed Universit y of Vaccine 00:00:00 [facility] Influenza Virus 2018-09-09 Completed Universit y of Vaccine 00:00:00 [facility] Influenza Virus 2018-09-09 Completed Universit y of Vaccine 00:00:00 [facility] Pneumococcal 2016-11-02 Completed University o f [...] blood 2021-11-02 17:17:00 109 mm[Hg] Univer sity [facility] Diastolic blood 2021-11-02 17:17:00 67 mm[Hg] Unive rsity [facility] Heart rate 2021-11-02 17:17:00 84 /min [facility] Body temperature 2021-11-02 17:17:00 36.44 [facility]anka [facility] Res[facility] rate 2021-11-02 17:17:00 18 /min General acute hospital Oxygen saturation in 2021-11-02 17:17:00 95 /min [facility] Arterial blood by [facility] Pulse oximetry Branch Body weight 2021-11-02 09:17:00 79.969 kg [facility] BMI 2021-11-02 09:17:00 27.61 kg/m2 [facility] Body height 2021-10-31 05:46:00 170.2 cm [facility] Systolic blood 2021-04-25 22:36:00 118 mm[Hg] Univer sity of pressure [facility] Diastolic blood 2021-04-25 22:36:00 70 mm[Hg] Unive rsity of [facility] Heart rate 2021-04-25 22:36:00 68 /min [facility] [place] [facility] Respiratory rate 2021-04-25 22:36:00 18 /min [facility] [place] [facility] Oxygen saturation in 2021-04-25 22:36:00 99 /min University of Arterial blood by [facility] birdie Pulse oximetry Branch Body temperature 2021-04-25 15:42:00 36.44 Priyanka [facility] [place] [facility] Body weight 2021-04-25 15:42:00 81.647 kg [facility] [place] [facility] BMI 2021-04-25 15:42:00 27.37 kg/m2 [facility] [place] [facility] Systolic blood 2020-06-26 10:00:00 124 mm[Hg] Univer [facility] Diastolic blood 2020-06-26 10:00:00 78 mm[Hg] Unive [facility] Respiratory rate 2020-06-26 10:00:00 18 /min [facility] Oxygen saturation in 2020-06-26 10:00:00 98 /min [facility] Arterial blood by [facility] Pulse oximetry Branch Heart rate 2020-06-26 08:56:00 98 /min [facility] Body temperature 2020-06-26 08:56:00 37.17 Priyanka [facility] Body weight 2020-06-26 08:56:00 74.844 kg [facility] BMI 2020-06-26 08:56:00 25.09 kg/m2 [facility] Systolic blood 2020-06-26 10:00:00 124 mm[Hg] Univer [facility] Diastolic blood 2020-06-26 10:00:00 78 mm[Hg] Unive [facility] Respiratory rate 2020-06-26 10:00:00 18 /min [facility] Oxygen saturation in 2020-06-26 10:00:00 98 /min [facility] Arterial blood by [facility] birdie Pulse oximetry Branch Heart rate 2020-06-26 08:56:00 98 /min [facility] Body temperature 2020-06-26 08:56:00 37.17 Priyanka [facility] Body weight 2020-06-26 08:56:00 74.844 kg [facility] BMI 2020-06-26 08:56:00 25.09 kg/m2 [facility] Systolic blood 2020-05-24 15:47:29 166 mm[Hg] [facility]iver [facility] Diastolic blood 2020-05-24 15:47:29 89 mm[Hg] [facility] Heart rate 2020-05-24 15:47:29 86 /min [facility] Respiratory rate 2020-05-24 15:47:29 16 /min [facility] Oxygen saturation in 2020-05-24 15:47:29 97 /min [facility] [place] [employer] birdie Pulse oximetry Branch Body temperature 2020-05-24 11:44:00 36.94 Priyanka [facility] Body height 2020-05-24 11:44:00 172.7 cm [facility] Body weight 2020-05-24 11:44:00 74.844 kg [facility] BMI 2020-05-24 11:44:00 25.09 kg/m2 [facility] Systolic blood 2020-05-24 15:47:29 166 mm[Hg] Univer [facility] Diastolic blood 2020-05-24 15:47:29 89 mm[Hg] [facility] Heart rate 2020-05-24 15:47:29 86 /min [facility] Respiratory rate 2020-05-24 15:47:29 16 /min [facility] Oxygen saturation in 2020-05-24 15:47:29 97 /min [facility] by [place] [employer] birdie Pulse oximetry Branch Body temperature 2020-05-24 11:44:00 36.94 Priyanka [facility] Body height 2020-05-24 11:44:00 172.7 cm [facility] Body weight 2020-05-24 11:44:00 74.844 kg [facility] BMI 2020-05-24 11:44:00 25.09 kg/m2 [facility] Systolic blood 2020-03-24 02:31:00 127 mm[Hg] [facility]iver [facility] Diastolic blood 2020-03-24 02:31:00 72 mm[Hg] [facility]ive [facility] Heart rate 2020-03-24 02:31:00 69 /min [facility] Body temperature 2020-03-24 02:31:00 36.39 Priyanka [facility] Respiratory rate 2020-03-24 02:31:00 18 /min [facility] Oxygen saturation in 2020-03-24 02:31:00 97 /min [facility] [place] [employer] birdie Pulse oximetry Branch Systolic blood 2020-03-23 21:35:00 100 mm[Hg] [facility]iver [facility] Diastolic blood 2020-03-23 21:35:00 59 mm[Hg] [facility]ive [facility] Heart rate 2020-03-23 21:35:00 79 /min [facility] Body temperature 2020-03-23 21:35:00 36.78 Priyanka [facility] Respiratory rate 2020-03-23 21:35:00 18 /min [facility] Oxygen saturation in 2020-03-23 21:35:00 99 /min [facility] [place] [employer] birdie Pulse oximetry Branch Body weight 2020-03-23 09:41:00 76.613 kg [facility] BMI 2020-03-23 09:41:00 26.45 kg/m2 [facility] Body height 2020-03-23 03:43:00 170.2 cm [facility] Systolic blood 2020-03-21 20:55:00 128 mm[Hg] [facility]iver [facility] Diastolic blood 2020-03-21 20:55:00 61 mm[Hg] [facility]ive [facility] Heart rate 2020-03-21 20:55:00 75 /min [facility] Respiratory rate 2020-03-21 20:55:00 10 /min [facility] Oxygen saturation in 2020-03-21 20:55:00 98 /min [facility] [place] [employer] birdie Pulse oximetry Branch Body temperature 2020-03-21 20:03:00 37.83 Priyanka [facility] Body height 2020-03-21 20:03:00 170.2 cm [facility] Body weight 2020-03-21 20:03:00 76.204 kg [facility] BMI 2020-03-21 20:03:00 26.31 kg/m2 [facility] Systolic blood 2020-03-07 20:50:00 118 mm[Hg] Univer [facility] Diastolic blood 2020-03-07 20:50:00 65 mm[Hg] Unive [facility] Heart rate 2020-03-07 20:50:00 85 /min [facility] Body temperature 2020-03-07 20:50:00 36.39 Priyanka [facility] Respiratory rate 2020-03-07 20:50:00 18 /min [facility] Oxygen saturation in 2020-03-07 20:50:00 95 /min [facility] [place] [employer] birdie Pulse oximetry Branch Body height 2020-03-05 02:35:00 172.7 cm [facility] Body weight 2020-03-05 02:35:00 73.483 kg [facility] BMI 2020-03-05 02:35:00 24.63 kg/m2 [facility] Systolic blood 2020-03-02 15:49:00 122 mm[Hg] [facility]iver [facility] Diastolic blood 2020-03-02 15:49:00 81 mm[Hg] [facility]ive [facility] Heart rate 2020-03-02 15:49:00 89 /min [facility] Body temperature 2020-03-02 15:49:00 37.06 Priyanka [facility] Respiratory rate 2020-03-02 15:49:00 19 /min [facility] Oxygen saturation in 2020-03-02 15:49:00 96 /min [facility] [place] [employer] birdie Pulse oximetry Branch Body height 2020-03-01 00:54:00 170.2 cm [facility] Body weight 2020-03-01 00:54:00 76.975 kg [facility] BMI 2020-03-01 00:54:00 26.58 kg/m2 [facility] Systolic blood 2020-01-17 21:08:00 116 mm[Hg] Univer sity of pressure [facility] Diastolic blood 2020-01-17 21:08:00 78 mm[Hg] Unive [facility] Heart rate 2020-01-17 21:08:00 88 /min [facility] Body temperature 2020-01-17 21:08:00 36.72 Priyanka [facility] Respiratory rate 2020-01-17 21:08:00 18 /min [facility] Oxygen saturation in 2020-01-17 21:08:00 98 /min [facility] Arterial blood by [facility] Pulse oximetry [place] Body height 2020-01-16 06:21:00 172.7 cm [facility] Body weight 2020-01-16 04:35:00 83.462 kg [facility] BMI 2020-01-16 04:35:00 27.98 kg/m2 [facility] Procedures Procedure Date / Time Performing Clinician Source Performed EXTERNAL PROVIDER RECORDS 2021-11-19 06:01:00 Doctor Unassigned, [facility] POCT GLUCOSE (AUTOMATED) 2021-11-02 22:49:00 Aida Shah [facility] POCT GLUCOSE (AUTOMATED) 2021-11-02 17:06:00 Aida Shah [facility] POCT GLUCOSE (AUTOMATED) 2021-11-02 13:30:00 Aida Shah [facility] TROPONIN I 2021-11-02 09:29:00 Alexandra Hdz [facility] BASIC METABOLIC PANEL 2021-11-02 09:29:00 Sridhar Gordon [facility] (NA, K, CL, CO2, GLUCOSE, Medica l Branch BUN, CREATININE, CA) CBC WITH DIFF 2021-11-02 09:29:00 Sridhar Gordon [facility] N-TERMINAL PRO-BNP 2021-11-02 09:29:00 [facility] POCT GLUCOSE (AUTOMATED) 2021-11-02 01:27:00 Aida Shah [facility] POCT GLUCOSE (AUTOMATED) 2021-11-01 17:37:00 AlyssaKeerthii [facility] POCT GLUCOSE (AUTOMATED) 2021-11-01 13:40:00 AlyssaKeerthii [facility] POCT GLUCOSE (AUTOMATED) 2021-11-01 01:10:00 Aida Shah [facility] POCT GLUCOSE (AUTOMATED) 2021-10-31 22:28:00 Alyssa Aida Nilda [facility] POCT GLUCOSE (AUTOMATED) 2021-10-31 17:29:00 [facility] 2021-10-31 16:25:00 Alexandra Hdz [facility] TRANSTHORACIC ECHO (TTE) 2021-10-31 15:53:00 Alexandra Hdz [facility] COMPLETE W/ CONTRAST Medical [facility] POCT GLUCOSE (AUTOMATED) 2021-10-31 13:39:00 Martha Drake [facility] TROPONIN I 2021-10-31 10:08:[facility] 2021-10-31 10:08:00 [facility] (NA, K, CL, CO2, GLUCOSE, Medica l Branch BUN, CREATININE, CA) LIPID PANEL ([id number])(TOTAL 2021-10-31 10:08:00 Alexandra Hdz [facility] CHOLESTEROL, [facility] TRIGLYCERIDES, HDL) CBC WITH DIFF 2021-10-31 10:08:00 [facility] URINALYSIS 2021-10-31 10:08:00 [facility] N-TERMINAL PRO-BNP 2021-10-31 10:08:00 Alexandra Hdz [facility] TROPONIN I 2021-10-31 06:17:[address] [facility] VW 2021-10-31 01:30:56 Martha Drake [facility] LIPASE 2021-10-31 01:25:00 Martha Drake [facility] TROPONIN I 2021-10-31 01:25:00 Martha Drake [facility] COMP. METABOLIC PANEL 2021-10-31 01:25:00 Martha Drake [facility] ([id number]) Medical Branch CBC WITH DIFF 2021-10-31 01:25:00 Martha Drake [facility] GLYCOSYLATED HEMOGLOBIN 2021-10-31 01:25:00 Sarah Harrell [facility] (A1C) [facility] PROTHROMBIN TIME / INR 2021-10-31 01:25:00 Martha Drake [facility] ACTIVATED PARTIAL 2021-10-31 01:25:00 Martha Drake [facility]MINAL PRO-BNP 2021-10-31 01:25:00 Martha Drake [facility] COVID-19 (ID NOW RAPID 2021-10-31 01:25:00 Martha Drake [facility] TESTING) Medical Branch LAB ONLY COVID 2021-10-31 01:25:00 Martha Drake [facility] INTERPRETATION [facility] HB ECG ROUTINE & RHYTHM 2021-10-31 01:20:03 Martha Drake [facility] STRIP [facility] URINALYSIS 2021-04-25 21:01:00 Nallely Zhao [facility] XR LUMBAR SPINE 2 VW 2021-04-25 18:41:00 Nallely Zhao [facility] XR HIPS 2 VW LEFT 2021-04-25 18:41:00 Nallely Zhao [facility] CONSENT/REFUSAL FOR 2021-04-25 15:43:06 Doctor Unassigned, [facility] DIAGNOSIS AND TREATMENT [facility] CERVICAL SPINE WO 2020-06-26 09:35:01 Martha Drake [facility] CONTRAST [facility] CT LUMBAR SPINE WO 2020-06-26 09:35:01 Martha Drake [facility] CT THORACIC SPINE WO 2020-06-26 09:35:01 Martha Drake [facility] CONTRAST [facility] UNILATERAL DUPLEX SCAN OF 2020-05-24 14:53:40 [facility] XR ANKLE 3+ VW LEFT 2020-05-24 13:22:26 Charanjit Heck [facility] HEPATIC FUNCTION PANEL 2020-05-24 13:13:00 Charanjit Heck [facility] ([id number]) (ALB,T.PRO,BILI Medical Branch T,BU/BC,ALT,AST,ALK PHOS) BASIC METABOLIC PANEL 2020-05-24 13:13:00 Charanjit Heck [facility] (NA, K, CL, CO2, GLUCOSE, Medica l Branch BUN, CREATININE, CA) CBC WITH DIFFERENTIAL 2020-05-24 13:13:00 Charanjit eHck [facility] PROTHROMBIN TIME / INR 2020-05-24 13:13:00 Charanjit Heck [facility] ACTIVATED PARTIAL 2020-05-24 13:13:00 Charanjit Heck [facility] NOTICE OF PRIVACY 2020-05-24 11:38:26 Doctor Unassigned, [facility] PRACTICES [facility] CONSENT/REFUSAL FOR 2020-05-24 11:35:52 Doctor Unacassie, [facility] DIAGNOSIS AND TREATMENT [facility] POCT GLUCOSE (AUTOMATED) 2020-03-23 22:32:00 Jamel Flores [facility] POCT GLUCOSE (AUTOMATED) 2020-03-23 18:07:00 Jamel Flores [facility] POCT GLUCOSE (AUTOMATED) 2020-03-23 14:57:00 Jamel Flores [facility] ECHO ROUTINE W/DOPPLER 2020-03-23 13:33:57 Tereza Cano [facility] COLOR [facility] EKG-12 LEAD 2020-03-23 12:56:59 Jamel Flores [facility] MAGNESIUM 2020-03-23 11:15:00 Tereza Cano [facility] TROPONIN I 2020-03-23 11:15:00 Bodani, [facility] BASIC METABOLIC PANEL 2020-03-23 11:15:00 [facility] (NA, K, CL, CO2, GLUCOSE, Medica l Branch BUN, CREATININE, CA) PROTHROMBIN TIME / INR 2020-03-23 11:15:00 Tereza Cano [facility] ACTIVATED PARTIAL 2020-03-23 11:15:00 Jerome [facility] EKG-12 LEAD 2020-03-23 07:51:19 Jamel Flores [facility] MAGNESIUM 2020-03-23 05:55:00 Jerome [facility] TROPONIN I 2020-03-23 05:55:00 Jerome [facility] BASIC METABOLIC PANEL 2020-03-23 05:55:00 Jerome [facility] (NA, K, CL, CO2, GLUCOSE, Medica l Branch BUN, CREATININE, CA) LIPID PANEL ([id number])(TOTAL 2020-03-23 05:55:00 Tereza Cano [facility] CHOLESTEROL, [facility] TRIGLYCERIDES, HDL) PROTHROMBIN TIME / INR 2020-03-23 02:55:00 Sallie Eckert [facility] ACTIVATED PARTIAL 2020-03-23 02:55:00 Babar [facility] XR CHEST 2 VW 2020-03-23 01:52:37 Esteban Singletary [facility] CORONAVIRUS COVID-19 2020-03-23 00:50:00 Esteban Singletary [facility] TESTING [facility] FERRITIN SERUM 2020-03-22 23:36:00 [facility] 2020-03-22 23:36:00 Esteban Singletary [facility] COMP. METABOLIC PANEL 2020-03-22 23:36:00 Esteban Singletary [facility] ([id number]) Medical Branch IRON PANEL 2020-03-22 23:36:00 Jerome [facility] CBC WITH DIFFERENTIAL 2020-03-22 23:36:00 Singletary, [facility] N-TERMINAL PRO-BNP 2020-03-22 23:36:00 Esteban Singletary [facility] EKG-12 LEAD 2020-03-22 23:08:53 Hayder [facility] EKG-12 LEAD 2020-03-22 23:08:15 Hayder [facility] XR CHEST 1 VW 2020-03-21 20:42:35 Myles Harry [facility] LACTIC ACID WHOLE BLOOD 2020-03-21 20:38:00 Myles Harry [facility] LIPASE 2020-03-21 20:19:00 Myles Harry [facility] TROPONIN I 2020-03-21 20:19:00 Myles Harry [facility] COMP. METABOLIC PANEL 2020-03-21 20:19:00 Myles Harry [facility] ([id number]) [facility] PROTHROMBIN TIME / INR 2020-03-21 20:19:00 Myles Harry [facility] N-TERMINAL PRO-BNP 2020-03-21 20:19:00 Myles Harry [facility] CORONAVIRUS COVID-19 2020-03-21 20:19:00 Myles Harry [facility] EKG-12 LEAD 2020-03-21 20:11:28 Myles Harry [facility] POCT GLUCOSE (AUTOMATED) 2020-03-07 20:56:00 Sarah Harrell [facility] POCT GLUCOSE (AUTOMATED) 2020-03-07 15:34:00 Sarah Harrell [facility] POCT GLUCOSE (AUTOMATED) 2020-03-07 12:56:00 [facility] URIC ACID 2020-03-07 10:14:00 Holland Briscoe [facility] TROPONIN I 2020-03-07 10:14:00 Lulu Harris [place] [facility] BASIC METABOLIC PANEL 2020-03-07 10:14:00 Sarah Harrell [facility] (NA, K, CL, CO2, GLUCOSE, Medica l Branch BUN, CREATININE, CA) CBC WITH DIFFERENTIAL 2020-03-07 10:14:00 Julio Cesar [facility] N-TERMINAL PRO-BNP 2020-03-07 10:14:00 Lulu Harris [facility] POCT GLUCOSE (AUTOMATED) 2020-03-06 21:16:[address] [facility] POCT GLUCOSE (AUTOMATED) 2020-03-06 16:10:[address] [facility] POCT GLUCOSE (AUTOMATED) 2020-03-06 12:38:[address] [facility] TROPONIN I 2020-03-06 08:51:00 Lulu Harris [facility] BASIC METABOLIC PANEL 2020-03-06 08:51[facility] ([facility], K, CL, CO2, GLUCOSE, Medica l Branch BUN, CREATININE, CA) CBC WITH DIFFERENTIAL 2020-03-06 08:51:00 Julio Cesar [facility] POCT GLUCOSE (AUTOMATED) 2020-03-06 01:16:[address] [facility] TROPONIN I 2020-03-05 23:25:00 Edconsuelo [facility] POCT GLUCOSE (AUTOMATED) 2020-03-05 21:14:[address] [facility] POCT GLUCOSE (AUTOMATED) 2020-03-05 16:39:[address] [facility] POCT GLUCOSE (AUTOMATED) 2020-03-05 12:47:[address] [facility] TROPONIN I 2020-03-05 09:50:[address] [facility] BAS[facility]ABOLIC PANEL 2020-03-05 09:50:00 [facility] (NA, K, CL, CO2, GLUCOSE, Medica l Branch BUN, CREATININE, CA) CBC WITH DIFFERENTIAL 2020-03-05 09:50:00 [facility] 2020-03-05 00:36:54 Bobo Urrutia [facility] EKG-12 LEAD 2020-03-05 00:31:03 Bobo Urrutia [facility] CORONAVIRUS COVID-19 2020-03-05 00:03:00 Charanjit Heck [facility] TESTING [facility] XR CHEST 1 VW 2020-03-04 23:58:59 Charanjit Heck [facility] LIPASE 2020-03-04 23:29:00 Charanjit Heck [facility] TROPONIN I 2020-03-04 23:29:00 Charanjit Heck [facility] HEPATIC FUNCTION PANEL 2020-03-04 23:29:00 Charanjit Heck [facility] ([id number]) (ALB,T.PRO,BILI Medical Branch T,BU/BC,ALT,AST,ALK PHOS) BASIC METABOLIC PANEL 2020-03-04 23:29:00 Charanjit Heck [facility] (NA, K, CL, CO2, GLUCOSE, Medica l Branch BUN, CREATININE, CA) CBC WITH DIFFERENTIAL 2020-03-04 23:29:00 Charanjit Heck [facility] PROTHROMBIN TIME / INR 2020-03-04 23:29:00 Charanjit Heck [facility] ACTIVATED PARTIAL 2020-03-04 23:29:00 [facility]jit Heck [facility] N-TERMINAL PRO-BNP 2020-03-04 23:29:00 Charanjit Heck [facility] EKG-12 LEAD 2020-03-04 23:15:42 Charnajit Heck [facility] EKG-12 LEAD 2020-03-04 23:10:23 Charanjit Heck [facility] EMERGENCY DEPARTMENT 2020-03-04 05:01:00 Doctor Unassigned, [facility] DOCUMENTS [facility] POCT GLUCOSE (AUTOMATED) 2020-03-02 15:52:00 Lulu Harris [facility] POCT GLUCOSE (AUTOMATED) 2020-03-02 12:39:00 Lulu Harris [facility] MAGNESIUM 2020-03-02 08:57:00 Carolyn, [facility] BASIC METABOLIC PANEL 2020-03-02 08:57:00 Carolyn [facility] (NA, K, CL, CO2, GLUCOSE, Medica l Branch BUN, CREATININE, CA) N-TERMINAL PRO-BNP 2020-03-02 08:57:00 Carolyn [facility] POCT GLUCOSE (AUTOMATED) 2020-03-01 20:39:00 Lulu Harris [facility] MAGNESIUM 2020-03-01 08:43:00 [facility] 2020-03-01 08:43:00 Carolyn [facility] BASIC METABOLIC PANEL 2020-03-01 08:43:00 Lulu Harris [facility] (NA, K, CL, CO2, GLUCOSE, Medica l Branch BUN, CREATININE, CA) CBC WITH DIFFERENTIAL 2020-03-01 08:43:00 [facility] N-TERMINAL PRO-BNP 2020-03-01 08:43:00 Carolyn [facility] VITAMIN B12, LEVEL 2020-03-01 03:49:00 Carolyn [facility] FOLATE 2020-03-01 03:49:00 Carolyn [facility] SEDIMENTATION RATE 2020-03-01 03:49:00 Carolyn [facility] POCT GLUCOSE (AUTOMATED) 2020-03-01 03:39:00 Lulu Harris [facility] PHOSPHORUS 2020-03-01 02:28:00 Steven [facility] URIC ACID 2020-03-01 02:28:00 Carolyn [facility] TROPONIN I 2020-03-01 02:28:00 Carolyn [facility] HEPATIC FUNCTION PANEL 2020-03-01 02:28:00 Carolyn alek [facility] ([id number]) (ALB,T.PRO,BILI Medical Branch T,BU/BC,ALT,AST,ALK PHOS) PROTHROMBIN TIME / INR 2020-03-01 02:28:00 Ivory Leon [facility] N-TERMINAL PRO-BNP 2020-03-01 02:28:00 Lulu Harris [facility] PROCALCITONIN 2020-03-01 02:28:00 Carolyn [facility] EKG-12 LEAD 2020-03-01 01:54:29 Carolyn [facility] EKG-12 LEAD 2020-02-29 23:16:21 Bobo Urrutia [facility] XR CHEST 1 VW COVID 2020-02-29 23:14:25 Bobo Urrutia [facility] EKG-12 LEAD 2020-02-29 23:13:50 Bobo Urrutia [facility] LACTIC ACID WHOLE BLOOD 2020-02-29 22:21:00 Bobo Urrutia [facility] CORONAVIRUS COVID-19 2020-02-29 22:20:00 Bobo Urrutia [facility] CREATINE KINASE 2020-02-29 22:14:00 Carolyn [facility] URIC ACID 2020-02-29 22:14:00 Carolyn [facility] LIPASE 2020-02-29 22:14:00 Bobo Urrutia [facility] MAGNESIUM 2020-02-29 22:14:00 Carolyn [facility] TROPONIN I 2020-02-29 22:14:00 Bobo Urrutia [facility] THYROID STIMULATING 2020-02-29 22:14:00 Carolyn [facility] HORMONE [facility] BASIC METABOLIC PANEL 2020-02-29 22:14:00 Bobo Urrutia [facility] (NA, K, CL, CO2, GLUCOSE, Medica l Branch BUN, CREATININE, CA) CBC WITH DIFFERENTIAL 2020-02-29 22:14:00 Bobo Urrutia [facility] GLYCOSYLATED HEMOGLOBIN 2020-02-29 22:14:00 Ivory Leon [facility] (A1[facility] N-TERMINAL PRO-BNP 2020-02-29 22:14:00 Ivory Leon [facility] EKG-12 LEAD 2020-02-29 21:59:12 Bobo Urrutia [facility] EKG-12 LEAD 2020-02-29 21:48:49 Bobo Urrutia [facility] EMERGENCY DEPARTMENT 2020-02-29 05:01:00 Doctor Unassigned, [facility] DOCUMENTS [facility] POCT GLUCOSE (AUTOMATED) 2020-01-17 18:15:[address] [facility] TROPONIN I 2020-01-17 16:31:00 Julio Cesar [facility] ACTIVATED PARTIAL 2020-01-17 16:31:00 Carolyn [facility] POCT GLUCOSE (AUTOMATED) 2020-01-17 11:56:[address] [facility] TROPONIN I 2020-01-17 09:52:00 Julio Cesar [facility] BASIC METABOLIC PANEL 2020-01-17 09:52:00 [facility] ([facility], K, CL, CO2, GLUCOSE, Medica l Branch BUN, CREATININE, CA) CBC WITH DIFFERENTIAL 2020-01-17 09:52:00 [facility] 2020-01-17 09:52:00 [facility] (AUTOMATED) 2020-01-16 23:59:[address] [facility] EKG-12 LEAD 2020-01-16 22:15:50 Julio Cesar [facility] TROPONIN I 2020-01-16 20:04:00 Julio Cesar [facility] ACTIVATED PARTIAL 2020-01-16 20:04:00 Ayo Scruggs [facility] POCT GLUCOSE (AUTOMATED) 2020-01-16 17:05:[address] [facility] POCT GLUCOSE (AUTOMATED) 2020-01-16 13:38:[address] [facility] TROPONIN I 2020-01-16 11:11:00 Julio Cesar [facility] LIPID PANEL ([id number])(TOTAL 2020-01-16 11:11:00 Julio Cesar [facility]IG[facility], HDL) ACTIVATED PARTIAL 2020-01-16 11:11:00 Julio Cesar [facility] CRITICAL CARE 2020-01-16 05:48:18 Charanjit Heck [facility] XR CHEST 1 VW 2020-01-16 04:46:44 Charanjit Heck [facility] TROPONIN I 2020-01-16 04:38:00 Umang Charanjit [facility] HEPATIC FUNCTION PANEL 2020-01-16 04:38:00 Charanjit Heck [facility] ([id number]) (ALB,T.PRO,BILI Medical Branch T,BU/BC,ALT,AST,ALK PHOS) BASIC METABOLIC PANEL 2020-01-16 04:38:00 Umang Charanjit [facility] (NA, K, CL, CO2, GLUCOSE, Medica l Branch BUN, CREATININE, CA) CBC WITH DIFFERENTIAL 2020-01-16 04:38:00 Umang Charanjit [facility] GLYCOSYLATED HEMOGLOBIN 2020-01-16 04:38:00 [facility] PROTHROMBIN TIME / INR 2020-01-16 04:38:00 Charanjit Heck [facility] ACTIVATED PARTIAL 2020-01-16 04:38:00 Umang [facility] N-TERMINAL PRO-BNP 2020-01-16 04:38:00 Charanjit Heck [facility] EKG-12 LEAD 2020-01-16 04:37:48 Umang Charanjit [facility] EKG-12 LEAD 2020-01-16 04:35:35 Umang Charanjit [facility] AUTHORIZATION FOR RELEASE 2019-07-12 05:01:00 Doctor Unassigned, [facility] [place] [facility] Encounters Start End Encounter Admission Attending Care Care Encounter Source Date/Time Date/Time Type Type Clinicians Facility Department ID 2021-12-16 Inpatient SERA Villavicencio [id number] [facility] 11:30:00 Jim [facility] 2021-12-16 Outpatient STLMLC STLMLC [id number] 09:19[facility]01 [facility] 2021-12-11 Outpatient Lester, STLMLC STLMLC [id number] 14:38:21 [facility] 2021-12-11 Outpatient Lester, STLMLC STLMLC [id number] 11:50:18 [facility] 2021-09-16 Emergency [facility] [id number] Univers 00:23:34 ity [facility] 2021-09-13 Emergency [facility] [id number] Univers [facility]13 Emergency [facility] [id number] Univers 05:40:48 [facility] 2021-12-25 2021-12-25 Inpatient ATTAR, [facility] [id number] [place] 00:00:00 00:00:00 M[address] 2021-12-19 2021-12-25 Inpatient LAUREN, [facility] [id number] [place] 00:00:00 00:00:00 JAYSON [address] 2021-12-24 2021-12-24 ambulatory STLMLC STLMLC [id number] [facility] 2021-12-20 2021-12-20 Inpatient ATTAR, [facility] [id number] [place] 00:00:00 00:00:00 M[address] 2021-12-17 2021-12-17 ambulatory STLMLC STLMLC [id number] [facility] 2021-12-16 2021-12-16 ambulatory STLMLC STLMLC [id number] [facility] 2021-11-19 2021-11-19 Jose Alejandro JONES 1.2.840.114 [id number] Univers 00:00:00 00:00:00 Only Unassigned, ASHLEIGH 350.1.13.10 ity of [place] [facility] 4.2.7.2.686 [place] as [phone] [facility] 009 Branch 2021-11-04 2021-11-04 Transition SHAREE Maria 1.2.840.114 [id number] Univers 00:00:00 00:00:00 of Care Supa GREWAL 350.1.13.10 [place] [id number] [facility] 403 Branch 2021-10-30 2021-11-02 Inpatient X ALYSSA [facility] ZEFERINO [id number] Univers 19:14:00 18:15:00 AIDA ity of [facility] 2021-10-30 2021-11-02 [facility] 1.2.840. 114 [id number] Univers 19:14:00 18:15:00 Encounter Aida Shah 350.1.13.10 ity of [place] 4.2.7.2.686 [facility] [id number] [facility] 081 Branch 2021-05-17 2021-05-17 Letter PcpROBERT 1.2.840.114 [id number] Univers 00:00:00 00:00:00 (Out) Patient ASHLEIGH 350.1.13.10 it y of [place] Not HOSPITAL [place].2.[place] [id number] [facility] 019 Branch 2021-04-25 2021-04-25 Emergency Cece, TRAUMA 1.2.505.756 [id number] Univers 10:43:00 17:38:00 [facility] 350.1.13.10 i ty of [place] 4.2.7.2.686 [facility] [phone] [facility] 014 Branch 2020-06-26 2020-06-26 Emergency [facility] 1.2.000.283 [id number] Univers 03:50:00 06:45:00 Martha Cortez 350.1.13.10 it[place] [id number] [facility] 084 [place] 2020-06-26 2020-06-26 Emergency rivt, [facility] 1.2.280.388 [id number] 03:50:00 06:45:00 Martha Cortez 350.1.13.10 [place] 4.2.7.2.686 [place] [phone] [facility] 2020-05-24 2020-05-24 Emergency [facility] 1.2.723.349 [id number] [facility] 06:40:47 10:54:00 Charanjit Cortez 350.1.13.10 i ty [place] [phone] [address] 2020-05-24 2020-05-24 Emergency [facility] 1.2.809.204 [id number] 06:40:47 10:54:00 Charanjit Cortez 350.1.13.10 [place] 4.2.7.2.686 [place] [id number] [facility] 2020-03-29 2020-03-29 Jamel Dunn 1.2.840.114 [id number] Univers 00:00:00 00:00:00 (Out) T Durham 350.1.13.10 it y of Hospital 4.2.7.2.686 [place] [phone] [facility] [address] [place] 2020-03-29 2020-03-29 Jamel Dunn 1.2.840.114 [id number] 00:00:00 00:00:00 (Out) T Ashleigh 350.1.13.10 Hospital 4.2.7.2.686 [id number] [facility] 2020-03-26 2020-03-26 Transition Sharee George 1.2.840.114 [id number] Univers 00:00:00 00:00:00 of Care Sherrell Grewal 350.1.13.10 it [place] [phone] [facility] 403 Branch 2020-03-26 2020-03-26 Transition Sharee George 1.2.840.114 [id number] 00:00:00 00:00:00 of Care Sherrell Grewal 350.1.13.10 [place] 4.2.7.2.686 [id number] 403 2020-03-22 2020-03-23 Emergency Sallie Eckert 1.2.840. 114 [id number] Univers 18:02:47 21:55:00 Jamel Flores 350.1.13.10 ity of [facility] 4.2.7.2.686 [place] [phone] [place] [id number] [place] 2020-03-22 2020-03-23 Outpatient X JAMEL FLORES [facility] [id number] Univers 18:02:47 21:55:00 ity of [facility] 2020-03-21 2020-03-21 Emergency [facility] 1.2.840.114 [id number] Univers 15:02:08 17:16:00 Myles Sharon Cortez 350.1.13.10 i ty of [place] 4.2.7.2.686 [facility] [id number] [address] 2020-03-21 2020-03-21 Emergency X [facility] ERT [id number] Univers 15:02:08 17:16:00 MYLES ity [facility] 2020-03-13 2020-03-13 Outpatient Raju_P MMG MMG [id number] [place] 05:24:00 05:24:00 [facility] 2020-03-08 2020-03-08 Transition Sharee Cool 1.2.840.114 [id number] Univers 00:00:00 00:00:00 of Care Prema Grewal 350.1.13.10 i [place] [id number] [facility] 403 Branch 2020-03-04 2020-03-07 [facility] Umang Charanjit [facility] 1.2.840.1 14 [id number] Univers 18:01:05 18:00:00 Encounter Sarah Harrell 350.1.13.10 ity of [place] [id number] [facility] 081 Branch 2020-03-04 2020-03-07 Inpatient X JULIO CESAR [facility] [id number] Univers 18:01:05 18:00:00 SARAH leon [facility] 2020-03-03 2020-03-03 Transition Sharee Silva 1.2.840.114 [id number] Univers 00:00:00 00:00:00 of Care Isatu Grewal 350.1.13.10 it y of [place] [id number] [facility] [address] [place] 2020-02-29 2020-03-02 [facility] Bobo Urrutia [facility] 1.2.840.11 [id number] Univers 16:53:09 12:18:00 Encounter Lulu Harris 350.1.13.10 ity [place] [id number] [facility] [address] [place] 2020-02-29 2020-03-02 Inpatient X ARPITAUDREY [facility] [id number] Univers 16:53:09 12:18:00 LULU margarethazra [facility] 2020-02-15 2020-02-15 Outpatient R [facility] [id number] Univers 11:30:00 11:30:00 THUYDANIELLA [facility] 2020-02-15 2020-02-15 [facility] 1.2.840.114 [id number] Univers 08:13:42 08:43:42 ne Visit Kathrin Cortez 350.1.13.10 [place] [facility] [phone] Mt dical nal 220 [facility] 2020-01-18 2020-01-18 Transition Sharee Harvey 1.2.840.114 [id number] Univers 00:00:00 00:00:00 of Care Ana M Grewal 350.1.13.10 it [phone] [address] 2020-01-15 2020-01-17 [facility] Charanjit Heck [facility] 1.2.840.1 14 [id number] Univers 22:33:37 16:58:00 Encounter Sarah Harrell 350.1.13.10 ity of [place] 4.2.7.2.686 [facility] [phone] [facility] 081 Branch 2020-01-15 2020-01-17 [id number] Univers 22:33:37 16:58:00 BRIGIDAY ity of [facility] 2019-10-07 2019-10-07 [facility] [id number] 10:48:00 10:48:00 [facility] Outpat[facility] Clinics 2019-10-05 2019-10-05 [facility] [id number] 16:06:00 16:06:00 [facility] 2019-07-27 2019-07-27 [facility] 1.2.840.114 [id number] Univers 00:00:00 00:00:00 [facility] [place] 350.1.13.10 i ty [facility] 4.2.7.2.686 [facility] [phone] Mt dical [facility] 220 Branch [facility] 2019-07-12 2019-07-12 [facility] [id number] 16:24:00 16:24:00 [facility] Outpati ent Clinics 2019-07-12 2019-07-12 Orders Doctor JONES 1.2.840.114 [id number] Univers 00:00:00 00:00:00 Only Unassigned, ASHLEIGH 350.1.13.10 ity of [place] [facility] 4.2.7.2.686 [place] [phone] [facility] 009 Branch 2019-07-06 2019-07-06 [facility] [id number] 14:00:00 14:00:00 [facility] Clin[facility] Results Test Description Test Time Test Comments Results Result Comments Source SARS-CoV-2 (COVID-19) RNA [Presence] in Respiratory sp ecimen by 2021-12-20 07:04:48 ERI with probe detection Test Item Value Reference Range Interpretation Comme nts SARS-CoV-2 (COVID-19) RNA [Presence] in Respiratory Not detected No t-Detected specimen by ERI with probe detection (test code = 62511-1) 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 (test code = 11346-8) Whether the patient has symptoms related to condition of interest (test code = 45764-1) Patient was hospitalized because of this condition (test code = 78346-5) Whether the patient was admitted to intensive care unit (ICU) for condition of interest (test code = 03430-8) Whether patient resides in a congregate care setting (test code = 21589-7) POCT GLUCOSE (AUTOMATED)2021-11-02 22:57:12 Test Item Value Reference Range Interpretation Comments POCT GLU (test code = 7071225569) 224 mg/dL 70-110 H Lab Interpretation (test code = Abnormal 10138-1) [facility] [id number] 22:37:57 Test Item Value Reference Range Interpretation Comments Lab Interpretation (test code = Abnormal 47059-2) [facility]2021-11-02 17:43:02 Test Item Value Reference Range Interpretation Comments POCT GLU (test code = 7819181452) 264 mg/dL 70-110 H Lab Interpretation (test code = Abnormal 89425-2) [facility] [id number] 15:07:47 Test Item Value Reference Interpretation Comments Range TROPONIN I (test 0.064 ng/mL See_Comment H [Automated code = 3332268051) message] The system which generated this result [...] biotin. Lab Interpretation Abnormal (test code = 51766-6) [facility] [id number] 15:04:26 Test Item Value Reference Range Interpretation Comments NT-proBNP (test code 800 pg/mL See_Comment H [Autom ated = 4853042952) message] The system which generated this result transmitted reference range : <=450. The reference range was not used to interpret this result as normal/abnormal . ALYSSA (test code = ALYSSA) Biotin has been reported to cause a negative bias, interpret results relative to patient's use of biotin. Lab Interpretation Abnormal (test code = 76443-5) [facility]2021-11-02 13:36:38 Test Item Value Reference Range Interpretation Comments POCT GLU (test code = 9251651050) 185 mg/dL 70-110 H Lab Interpretation (test code = Abnormal 60988-3) [facility] (NA, K, CL, CO2, GLUCOSE, BUN, CREATININE, CA)2021-11-02 10:26:43 Test Item Value Reference Range Interpretation Comments NA (test code = 136 mmol/L 135-145 7760024668) K (test code = 4.0 mmol/L 3.5-5.0 0340678442) CL (test code = 99 mmol/L 98-108 8835875088) CO2 TOTAL (test code = 27 mmol/L 23-31 5291172500) AGAP (test code = 2-16 7556356898) BUN (test code = 30 mg/dL 7-23 H 2047331903) GLUCOSE (test code = 165 mg/dL 70-110 H 8124186274) CREATININE (test code = 1.42 mg/dL 0.60-1.25 H 9587082923) CALCIUM (test code = 9.5 mg/dL 8.6-10.6 1615063486) eGFR (test code = mL/min/1.73m2 1669117339) ALYSSA (test code = ALYSSA) Association of [...] tests). Lab Interpretation Abnormal (test code = 36688-4) [facility] WITH [id number] 10:01:58 Test Item Value Reference Range Interpretation Comments WBC (test code = See_Comment [Automated 8408-2) message] The sy stem which generated this result transmitted reference range : 4.20 - 10.70 10*3/?L. The reference range was not used to interpret this result as normal/abnormal . RBC (test code = See_Comment L [Automated 551-8) message] The sy stem which generated this [...] RDW-SD (test code = 39.8 fL 38.5-51.6 81451-4) RDW-CV (test code = 11.5 % 12.1-15.4 L 788-0) PLT (test code = See_Comment [Automated 777-3) message] The sy stem which generated this result transmitted reference range : 150 - 328 10*3/ ?L. The reference r corey was not used to interpret this result as normal/abnormal . MPV (test code = 10.5 fL 9.8-13.0 30044-4) NRBC/100 WBC (test See_Comment [Automat ed code = 7237904153) message] The system which generated this result transmitted reference range : 0.0 - 10.0 /100 WBCs. The refer ence range was not u sed to interpret th is result as normal/abnormal . NRBC x10^3 (test code <0.01 See_Comment [Auto mated = 8616333597) message] The s ystem which generated this result transmitted reference range : 10*3/?L. The reference range was not used to interpret this result as normal/abnormal . GRAN MAT (NEUT) % 59.3 % (test code = 770-8) IMM GRAN % (test code 0.30 % = 8390284953) LYMPH % (test code = 25.0 % 736-9) MONO % (test code = 10.7 % 5905-5) EOS % (test code = 4.1 % 713-8) BASO % (test code = 0.6 % 706-2) GRAN MAT x10^3(ANC) 4.19 10*3/uL 1.99-6.95 (test code = 9662983807) IMM GRAN x10^3 (test <0.03 0.00-0.06 code = 3923486915) LYMPH x10^3 (test code 1.77 10*3/uL 1.09-3.23 = 731-0) MONO x10^3 (test code 0.76 10*3/uL 0.36-1.02 = 742-7) EOS x10^3 (test code = 0.29 10*3/uL 0.06-0.53 711-2) BASO x10^3 (test code 0.04 10*3/uL 0.01-0.09 = 704-7) Lab Interpretation Abnormal (test code = 75189-7) [facility] GLUCOSE (AUTOMATED)2021-11-02 01:29:56 Test Item Value Reference Range Interpretation Comments POCT GLU (test code = 2396637746) 167 mg/dL 70-110 H Lab Interpretation (test code = Abnormal 46507-1) [facility] GLUCOSE (AUTOMATED)2021-11-01 17:40:19 Test Item Value Reference Range Interpretation Comments POCT GLU (test code = 5348839781) 193 mg/dL 70-110 H Lab Interpretation (test code = Abnormal 66289-2) [facility] GLUCOSE (AUTOMATED)2021-11-01 13:44:28 Test Item Value Reference Range Interpretation Comments POCT GLU (test code = 9174696829) 200 mg/dL 70-110 H Lab Interpretation (test code = Abnormal 07288-6) [facility] GLUCOSE (AUTOMATED)2021-11-01 01:38:43 Test Item Value Reference Range Interpretation Comments POCT GLU (test code = 1856637874) 177 mg/dL 70-110 H Lab Interpretation (test code = Abnormal 45258-9) [facility] GLUCOSE (AUTOMATED)2021-10-31 22:39:43 Test Item Value Reference Range Interpretation Comments POCT GLU (test code = 4606157293) 174 mg/dL 70-110 H Lab Interpretation (test code = Abnormal 33462-9) [facility] GLUCOSE (AUTOMATED)2021-10-31 17:40:22 Test Item Value Reference Range Interpretation Comments POCT GLU (test code = 0147153017) 224 mg/dL 70-110 H Lab Interpretation (test code = Abnormal 23745-1) [id number] 17:14:58 Test Item Value Reference Interpretation Comments Range TROPONIN I (test 0.080 ng/mL See_Comment H [Automated code = 2286363238) message] The system which generated this result [...] biotin. Lab Interpretation Abnormal (test code = 33311-2) [facility] [id number] 15:14:03 Test Item Value Reference Range Interpretation Comments NT-proBNP (test code 474 pg/mL See_Comment H [Autom ated = 6209757068) message] The system which generated this result transmitted reference range : <=450. The reference range was not used to interpret this result as normal/abnormal . ALYSSA (test code = ALYSSA) Biotin has been reported to cause a negative bias, interpret results relative to patient's use of biotin. Lab Interpretation Abnormal (test code = 06238-1) [facility] DentonLIPID PANEL (15663)(TOTAL CHOLESTEROL, TRIGLYCERIDES, HDL)2021-10-31 15:05:19 Test Item Value Reference Range Interpretation Comments CHOL (test code = 101 mg/dL 120-200 L 1428135952) HDL (test code = 36 mg/dL >40 L 2517782661) HDLC RATIO (test code = See_Comment [Au tomated message] 4417347013) The system [employer] generated this result transmit diamante reference range : <=5.0. The refe rence range was not u sed to interpret th is result as normal/abnormal . TRIG (test code = 143 mg/dL 30-170 9918306396) LDL CHOL (test code = 36 mg/dL See_Comment [Auto mated message] 12979-9) The system [employer] generated this result transmit diamante reference range : <=160. The refe rence range was not u sed to interpret th is result as normal/abnormal . VLDL (test code = 29 mg/dL 5-60 3237449748) Lab Interpretation (test Abnormal code = 72312-8) [facility])2021-10-31 13:44:00 Test Item Value Reference Range Interpretation Comments POCT GLU (test code = 0914587323) 150 mg/dL 70-110 H Lab Interpretation (test code = Abnormal 74747-6) [facility] with [id number] 11:13:14 Test Item Value Reference Range Interpretation [...] RDW-SD (test code = 39.9 fL 38.5-51.6 53244-2) RDW-CV (test code = 11.8 % 12.1-15.4 L 788-0) PLT (test code = See_Comment [Automated 777-3) message] The sy stem which generated this result transmitted reference range : 150 - 328 10*3/ ?L. The reference r corey was not used to interpret this result as normal/abnormal . MPV (test code = 11.0 fL 9.8-13.0 45129-8) NRBC/100 WBC (test See_Comment [Automat ed code = 4299708001) message] The system which generated this result transmitted reference range : 0.0 - 10.0 /100 WBCs. The refer ence range was not u sed to interpret th is result as normal/abnormal . NRBC x10^3 (test code <0.01 See_Comment [Auto mated = 5705947437) message] The s [facility] which generated this result transmitted reference range : 10*3/?L. The reference range was not used to interpret this result as normal/abnormal . GRAN MAT (NEUT) % 64.3 % (test code = 770-8) IMM GRAN % (test code 0.30 % = 5144933591) LYMPH % (test code = 21.7 % 736-9) MONO % (test code = 10.0 % 5905-5) EOS % (test code = 3.1 % 713-8) BASO % (test code = 0.6 % 706-2) GRAN MAT x10^3(ANC) 4.35 10*3/uL 1.99-6.95 (test code = 0536507869) IMM GRAN x10^3 (test <0.03 0.00-0.06 code = 7885216638) LYMPH x10^3 (test code 1.47 10*3/uL 1.09-3.23 = 731-0) MONO x10^3 (test code 0.68 10*3/uL 0.36-1.02 = 742-7) EOS x10^3 (test code = 0.21 10*3/uL 0.06-0.53 711-2) BASO x10^3 (test code 0.04 10*3/uL 0.01-0.09 = 704-7) Lab Interpretation Abnormal (test code = 99728-0) [facility] [id number] 11:09:53 Test Item Value Reference Interpretation Comments Range TROPONIN I (test 0.101 ng/mL See_Comment H [Automated code = 0504392162) message] The system which generated this result [...] biotin. Lab Interpretation Abnormal (test code = 78180-1) [facility] Metabolic Panel (NA, K, CL, CO2, GLUCOSE, BUN, CREATININE, CA)2021-10-31 10:59:31 Test Item Value Reference Range Interpretation Comments NA (test code = 139 mmol/L 135-145 1315854515) K (test code = 4.1 mmol/L 3.5-5.0 9180841155) CL (test code = 103 mmol/L 98-108 0641222750) CO2 TOTAL (test code = 28 mmol/L 23-31 8530489036) AGAP (test code = 2-16 4843771124) BUN (test code = 43 mg/dL 7-23 H 5446506301) GLUCOSE (test code = 165 mg/dL 70-110 H 5254262891) CREATININE (test code = 1.68 mg/dL 0.60-1.25 H 9776764310) CALCIUM (test code = 9.6 mg/dL 8.6-10.6 5579321792) eGFR (test code = mL/min/1.73m2 3955349841) ALYSSA (test code = ALYSSA) Association of [...] tests). Lab Interpretation Abnormal (test code = 62369-9) [facility]cosylated Hemoglobin (A1C)2021-10-31 09:13:40 Test Item Value Reference Range Interpretation Comments HGB A1C (test code = 6.8 % 4.0-5.7 H 4548-4) ALYSSA (test code = ALYSSA) Reference RangesNormal: <5.7%Prediabetes: 5.7 - 6.4%Diabetes: > 6.5% Lab Interpretation (test Abnormal code = 38917-3) [facility] [id number] 06:48:18 Test Item Value Reference Interpretation Comments Range TROPONIN I (test 0.082 ng/mL See_Comment H [Automated code = 3417210898) message] The system which generated this result [...] biotin. Lab Interpretation Abnormal (test code = 61983-1) [facility] [id number] 02:09:48 Test Item Value Reference Interpretation Comments Range TROPONIN I (test 0.067 ng/mL See_Comment H [Automated code = 3743439374) message] The system which generated this result [...] biotin. Lab Interpretation Abnormal (test code = 99436-6) [facility] [id number] 02:06:31 Test Item Value Reference Range Interpretation Comments NT-proBNP (test code 318 pg/mL See_Comment [Autom ated = 4715267647) message] The system which generated this result transmitted reference range : <=450. The reference range was not used to interpret this result as normal/abnormal . ALYSSA (test code = ALYSSA) Biotin has been reported to cause a negative bias, interpret results relative to patient's use of biotin. Lab Interpretation Normal (test code = 83371-9) [facility]. METABOLIC PANEL (57219)2021-10-31 01:58:28 Test Item Value Reference Range Interpretation Comments NA (test code = 137 mmol/L 135-145 3378653609) K (test code = 4.1 mmol/L 3.5-5.0 4359565292) CL (test code = 101 mmol/L 98-108 0722118401) CO2 TOTAL (test code = 26 mmol/L 23-31 9844784858) AGAP (test code = 2-16 6368401375) BUN (test code = 46 mg/dL 7-23 H 4604741572) GLUCOSE (test code = 213 mg/dL 70-110 H 6503664623) CREATININE (test code = 1.96 mg/dL 0.60-1.25 H [id number]) TOTAL BILI (test code = 0.9 mg/dL 0.1-1.6 0779100706) CALCIUM (test code = 9.7 mg/dL 8.6-10.6 0005227945) T PROTEIN (test code = 7.0 g/dL 6.3-8.2 2883069629) ALBUMIN (test code = 4.3 g/dL 3.5-5.0 7898910458) ALK PHOS (test code = 58 U/L 34-122 5400707702) ALTv (test code = 20 U/L 5-50 1742-6) AST(SGOT) (test code = 27 U/L 13-40 4443871430) eGFR (test code = mL/min/1.73m2 7883467134) ALYSSA (test code = ALYSSA) Association of [...] tests). Lab Interpretation Abnormal (test code = 12419-0) [facility]entonLIPASE, [id number] 01:57:48 Test Item Value Reference Range Interpretation Comments LIPASE (test code = 0621196165) 330 U/L 0-220 H Lab Interpretation (test code = Abnormal 21689-6) [facility]onaPTT2021-[facility]-16 01:55:04 Test Item Value Reference Range Interpretation Comments APTT Patient (test See_Comment [Automat ed code = 3173-2) message] The system which generated this result transmitted reference range : 23 - 38 Seconds . The reference range was not used to interpr et this result as normal/abnormal . ALYSSA (test code = ALYSSA) The [facility] patient population mean normal value for aPTT is 30 seconds. Lab Interpretation Normal (test code = 56086-6) [facility] DentonPROTHROMBIN TIME / [id number] 01:53:08 Test Item Value Reference Range Interpretation [...] tions. Lab Interpretation (test Normal code = 69109-3) [facility]entonCBC WITH [id number] 01:45:44 Test Item Value Reference Range Interpretation Comments WBC (test code = See_Comment [Automated 2690-2) message] The sy stem which generated this result transmitted reference range : 4.20 - 10.70 10*3/?L. The reference range was not used to interpret this result as normal/abnormal . RBC (test code = See_Comment L [Automated 519-8) message] The sy stem which generated this [...] RDW-SD (test code = 39.1 fL 38.5-51.6 87413-2) RDW-CV (test code = 11.6 % 12.1-15.4 L 788-0) PLT (test code = See_Comment [Automated 777-3) message] The sy stem which generated this result transmitted reference range : 150 - 328 10*3/ ?L. The reference r corey was not used to interpret this result as normal/abnormal . MPV (test code = 10.4 fL 9.8-13.0 83958-3) NRBC/100 WBC (test See_Comment [Automat ed code = 8877775624) message] The system which generated this result transmitted reference range : 0.0 - 10.0 /100 WBCs. The refer ence range was not u sed to interpret th is result as normal/abnormal . NRBC x10^3 (test code <0.01 See_Comment [Auto mated = 4145318865) message] The s ystem which generated this result transmitted reference range : 10*3/?L. The reference range was not used to interpret this result as normal/abnormal . GRAN MAT (NEUT) % 62.1 % (test code = 770-8) IMM GRAN % (test code 0.30 % = 2152335304) LYMPH % (test code = 23.4 % 736-9) MONO % (test code = 10.8 % 5905-5) EOS % (test code = 2.9 % 713-8) BASO % (test code = 0.5 % 706-2) GRAN MAT x10^3(ANC) 4.14 10*3/uL 1.99-6.95 (test code = 5410966093) IMM GRAN x10^3 (test <0.03 0.00-0.06 code = 7528698205) LYMPH x10^3 (test code 1.56 10*3/uL 1.09-3.23 = 731-0) MONO x10^3 (test code 0.72 10*3/uL 0.36-1.02 = 742-7) EOS x10^3 (test code = 0.19 10*3/uL 0.06-0.53 711-2) BASO x10^3 (test code 0.03 10*3/uL 0.01-0.09 = 704-7) Lab Interpretation Abnormal (test code = 83925-0) [facility]entonURINALYSIS2021-06-10 21:15:48 Test Item Value Reference Range Interpretation Comments APPEARANCE (test code = Clear Clear 7801462251) COLOR (test code = Yellow Yellow 0966497345) PH (test code = 4.8-8.0 7180426926) SP GRAVITY (test code = 1.003-1.030 0875191784) GLU U QUAL (test code = 50 mg/dL Normal A 5048665197) BLOOD (test code = Negative Negative INTERFERE NCE FROM 5290488636) ASCORBIC ACID M AY CAUSE FALSE NEG ATIVE RESULT KETONES (test code = Negative Negative 4152273432) PROTEIN (test code = Negative Negative 2887-8) UROBILIN (test code = Normal Normal 1464059802) BILIRUBIN (test code = Negative Negative 1249287656) NITRITE (test code = Negative Negative 6224910998) LEUK JESS (test code = Negative Negative 3907120555) RBC/HPF (test code = See_Comment [Autom ated message] 4154611521) The system [employer] generated this result transmitted ref erence range: 0 - 3 HP F. The reference range was not used to int erpret this result as normal/abnormal . WBC/HPF (test code = See_Comment [Autom ated message] 6823232528) The system [employer] generated this result transmitted ref erence range: 0 - 5 HP F. The reference range was not used to int erpret this result as normal/abnormal . BACTERIA (test code = Negative Negative 2784415278) SQ EPITH (test code = <1 See_Comment [Auto mated message] 5753034876) The system [employer] generated this result transmitted ref erence range: <=2 HPF. The reference range was not used to int erpret this result as normal/abnormal . HYAL CAST (test code = See_Comment [Aut omated message] 2799656307) The system [employer] generated this result transmitted ref erence range: <=2 LPF. The reference range was not used to int erpret this result as normal/abnormal . Lab Interpretation (test Abnormal code = 00943-3) [facility] DentonXR LUMBAR SPINE 2 [id number] 20:30:53 Impression: Postoperative changes. Degenerative changes. No [...] acute fracture or dislocation identified. Atherosclerotic calcifications. [facility], Radiant Results Inft User -04/25/2021 3:31 PM [...] acute bony abnormality identified.End of Report.[facility] VW [id number] 20:24:52Impression: Postoperative changes. Degenerative changes. No acute [...] clinicalconcern MRI is available.End of Report.RL: [facility] (NA, K, CL, CO2, GLUCOSE, BUN, CREATININE, CA)2020-05-24 14:15:00 Test Item Value Reference Range Interpretation Comments NA (test code = 139 mmol/L 135-145 8764927728) K (test code = 4.1 mmol/L 3.5-5 9459930141) CL (test code = 104 mmol/L 98-108 1615284791) CO2 TOTAL (test code = 26 mmol/L 23-31 5339643933) AGAP (test code = 2-16 0755662961) BUN (test code = 22 mg/dL 7-23 8366187726) GLUCOSE (test code = 203 mg/dL 70-110 H 0332157108) CREATININE (test code = 1.40 mg/dL 0.6-1.25 H 9405149561) CALCIUM (test code = 9.1 mg/dL 8.6-10.6 8228016505) eGFR Calculation mL/min/1.73m2 (Non-) (test code = 7450678012) eGFR Calculation mL/min/1.73m2 () (test code = 1520769230) ALYSSA (test code = ALYSSA) Association of [...] tests). Lab Interpretation Abnormal (test code = 95534-6) [facility] DentonHepatic Function Panel (ALB, T.PRO, BILI T, BU/BC, ALT, AST, ALK PHOS)2020-05-24 13:54:00 Test Item Value Reference Range Interpretation Comments TOTAL BILI (test code = 5558788800) 0.9 mg/dL 0.1-1.1 BILI UNCON (test code = 7830448633) 1.0 mg/dL 0.1-1.1 BILI CONJ (test code = 5703213638) 0.0 mg/dL 0-0.3 T PROTEIN (test code = 5950464686) 7.0 g/dL 6.3-8.2 ALBUMIN (test code = 1046901642) 4.2 g/dL 3.5-5 ALK PHOS (test code = 2619214264) 49 U/L 34-122 ALTv (test code = 1742-6) 17 U/L 5-50 AST(SGOT) (test code = 4678378807) 25 U/L 13-40 Lab Interpretation (test code = Normal 85257-8) [facility] DentonaPTT2020-07-09 13:32:00 Test Item Value Reference Range Interpretation Comments APTT Patient (test See_Comment [Automat ed code = 3173-2) message] The system which generated this result transmitted reference range : 23 - 38 Seconds . The reference range was not used to interpr et this result as normal/abnormal . ALYSSA (test code = ALYSSA) The [facility] patient population mean normal value for aPTT is 30 seconds. Lab Interpretation Normal (test code = 45453-1) [facility] DentonProthrombin Time (PT) / [id number] 13:30:00 Test Item Value Reference Range Interpretation [...] tions. Lab Interpretation (test Normal code = 19471-0) [facility] DentonCBC WITH [id number] 13:27:00 Test Item Value Reference Range Interpretation [...] RDW-SD (test code = 42.6 fL 38.5-51.6 03566-0) RDW-CV (test code = 12.3 % 12.1-15.4 788-0) PLT (test code = See_Comment [Automated 777-3) message] The sy stem which generated this result transmitted reference range : 150 - 328 10*3/ ?L. The reference r corey was not used to interpret this result as normal/abnormal . MPV (test code = 9.9 fL 9.8-13 38084-1) NRBC/100 WBC (test See_Comment [Automat ed code = 5358755259) message] The system which generated this result transmitted reference range : 0.0 - 10.0 /100 WBCs. The refer ence range was not u sed to interpret th is result as normal/abnormal . NRBC x10^3 (test code <0.01 See_Comment [Auto mated = 7118230596) message] The s ystem which generated this result transmitted reference range : 10*3/?L. The reference range was not used to interpret this result as normal/abnormal . GRAN MAT (NEUT) % 55.1 % (test code = 770-8) IMM GRAN % (test code 0.20 % = 6869184502) LYMPH % (test code = 28.8 % 736-9) MONO % (test code = 11.3 % 5905-5) EOS % (test code = 3.5 % 713-8) BASO % (test code = 1.1 % 706-2) GRAN MAT x10^3(ANC) 3.11 10*3/uL 1.99-6.95 (test code = 3595004837) IMM GRAN x10^3 (test <0.03 0-0.06 code = 7962325051) LYMPH x10^3 (test code 1.63 10*3/uL 1.09-3.23 = 731-0) MONO x10^3 (test code 0.64 10*3/uL 0.36-1.02 = 742-7) EOS x10^3 (test code = 0.20 10*3/uL 0.06-0.53 711-2) BASO x10^3 (test code 0.06 10*3/uL 0.01-0.09 = 704-7) Lab Interpretation Abnormal (test code = 76169-5) [facility]entonXR ANKLE 3+ VW [id number] 13:25:58HISTORY: ?Pain. FINDINGS: AP, lateral, oblique views [...] No acute fracture or dislocation in left ankle.[facility] DentonPOCT GLUCOSE (AUTOMATED)2020-03-23 22:34:00 Test Item Value Reference Range Interpretation Comments POCT GLU (test code = 8601869335) 173 mg/dL 70-110 H Lab Interpretation (test code = Abnormal 74647-3) [facility] GLUCOSE (AUTOMATED)2020-03-23 22:34:00 Test Item Value Reference Range Interpretation Comments POCT GLU (test code = 1401108916) 173 mg/dL 70-110 H Lab Interpretation (test code = Abnormal 61039-7) [facility] GLUCOSE (AUTOMATED)2020-03-23 18:12:00 Test Item Value Reference Range Interpretation Comments POCT GLU (test code = 165 mg/dL 70-110 H Notifi ed Provider [id number]) Lab Interpretation (test Abnormal code = 08260-6) [facility] GLUCOSE (AUTOMATED)2020-03-23 18:12:00 Test Item Value Reference Range Interpretation Comments POCT GLU (test code = 165 mg/dL 70-110 H Notifi ed Provider [id number]) Lab Interpretation (test Abnormal code = 66564-9) [facility] GLUCOSE (AUTOMATED)2020-03-23 15:04:00 Test Item Value Reference Range Interpretation Comments POCT GLU (test code = 114 mg/dL 70-110 H Notifi ed Provider [id number]) Lab Interpretation (test Abnormal code = 11042-8) [facility] GLUCOSE (AUTOMATED)2020-03-23 15:04:00 Test Item Value Reference Range Interpretation Comments POCT GLU (test code = 114 mg/dL 70-110 H Notifi ed Provider 0719103232) Lab Interpretation (test Abnormal code = 27585-5) [facility] DentonFERRITIN [id number] 13:23:00 Test Item Value Reference Range Interpretation Comments FERRITIN (test code = 139.0 ng/mL 18-464 4503897195) ALYSSA (test code = ALYSSA) Biotin has been reported to cause a negative bias, interpret results relative to patient's use of biotin. Lab Interpretation (test Normal code = 35397-8) [facility] DentonFERRITIN [id number] 13:23:00 Test Item Value Reference Range Interpretation Comments FERRITIN (test code = 139.0 ng/mL 18-464 3797670870) ALYSSA (test code = ALYSSA) Biotin has been reported to cause a negative bias, interpret results relative to patient's use of biotin. Lab Interpretation (test Normal code = 80335-6) [facility] [id number] 12:53:00 Test Item Value Reference Range Interpretation Comments IRON (test code = 6150423658) 87 ug/dL 50-160 TIBC (test code = 0726077301) 385 ug/dL 250-410 % FE SAT (test code = 0782317748) 23 % 20-50 Lab Interpretation (test code = Normal 62189-6) [facility] [id number] 12:53:00 Test Item Value Reference Range Interpretation Comments IRON (test code = 8605402372) 87 ug/dL 50-160 TIBC (test code = 7286609190) 385 ug/dL 250-410 % FE SAT (test code = 1111916878) 23 % 20-50 Lab Interpretation (test code = Normal 24892-0) [place] [address]2020-05-08 12:07:00 Test Item Value Reference Range Interpretation Comments APTT Patient (test code See_Comment [Au tomated message] = 3173-2) The system [employer] generated this result transmitted ref erence range: 26 - 36 Seconds. The reference range was not used to int erpret this result as normal/abnormal . Lab Interpretation (test Abnormal code = 73267-0) [facility] Test Item Value Reference Range Interpretation Comments APTT Patient (test code See_Comment [Au tomated message] = 3173-2) The system [employer] generated this result transmitted ref erence range: 26 - 36 Seconds. The reference range was not used to int erpret this result as normal/abnormal . Lab Interpretation (test Abnormal code = 57955-6) [facility] [id number] 11:57:00 Test Item Value Reference Range Interpretation Comments TROPONIN I (test 0.046 ng/mL See_Comment H [Automated code = 3718917264) message] The system which generated this result [...] ? Lab Interpretation Abnormal (test code = 32648-0) [facility] DentonKATEJr [id number] 11:57:00 Test Item Value Reference Range Interpretation Comments TROPONIN I (test 0.046 ng/mL See_Comment H [Automated code = 7753107144) message] The system which generated this result [...] ? Lab Interpretation Abnormal (test code = 09121-7) [facility]entonB[facility] (NA, K, CL, CO2, GLUCOSE, BUN, CREATININE, CA)2020-03-23 11:52:00 Test Item Value Reference Range Interpretation Comments NA (test code = 137 mmol/L 135-145 6653796413) K (test code = 4.1 mmol/L 3.5-5 7343233939) CL (test code = 102 mmol/L 98-108 8784843233) CO2 TOTAL (test code = 26 mmol/L 23-31 7002217893) AGAP (test code = 2-16 8460780058) BUN (test code = 18 mg/dL 7-23 6886970744) GLUCOSE (test code = 119 mg/dL 70-110 H 9080627883) CREATININE (test code = 1.14 mg/dL 0.6-1.25 6888597751) CALCIUM (test code = 9.1 mg/dL 8.6-10.6 6432875422) eGFR Calculation mL/min/1.73m2 (Non-) (test code = 8431573129) eGFR Calculation mL/min/1.73m2 () (test code = 1945382328) ALYSSA (test code = ALYSSA) Association of [...] tests). Lab Interpretation Abnormal (test code = 13446-4) [facility]entonMAGNESIUM2020-05-08 11:52:00 Test Item Value Reference Range Interpretation Comments MAGNESIUM (test code = 5019729966) 2.2 mg/dL 1.7-2.4 Lab Interpretation (test code = Normal 47222-0) [facility] METABOLIC PANEL (NA, K, CL, CO2, GLUCOSE, BUN, CREATININE, CA)2020-03-23 11:52:00 Test Item Value Reference Range Interpretation Comments NA (test code = 137 mmol/L 135-145 9755681169) K (test code = 4.1 mmol/L 3.5-5 6492264826) CL (test code = 102 mmol/L 98-108 9915432347) CO2 TOTAL (test code = 26 mmol/L 23-31 3061458284) AGAP (test code = 2-16 9594172298) BUN (test code = 18 mg/dL 7-23 6486366787) GLUCOSE (test code = 119 mg/dL 70-110 H 0684840651) CREATININE (test code = 1.14 mg/dL 0.6-1.25 1148192170) CALCIUM (test code = 9.1 mg/dL 8.6-10.6 5209698866) eGFR Calculation mL/min/1.73m2 (Non-) (test code = 1323404484) eGFR Calculation mL/min/1.73m2 () (test code = 3646611928) ALYSSA (test code = ALYSSA) Association of [...] tests). Lab Interpretation Abnormal (test code = 60736-6) [facility]entonMAG[facility]UM2020-05-08 11:52:00 Test Item Value Reference Range Interpretation Comments MAGNESIUM (test code = 8350764415) 2.2 mg/dL 1.7-2.4 Lab Interpretation (test code = Normal 66057-0) [facility] DentonProthrombin Time (PT) / [id number] 11:36:00 Test Item Value Reference Range Interpretation Comments PROTIME PATIENT (test See_Comment [Auto mated message] code = 5964-2) The system [employer] generated this result transmitted ref erence range: 10.1 - 1 2.6 Seconds. The re ference range was not u sed to interpret this result as normal/abnor mal. INR (test code = 6301-6) Nor mal INR <1.1; Warfarin Therap eutic range 2.0 to 3. 0 or 2.5 to 3.5, dep ending upon the indica tions. Lab Interpretation (test Normal code = 41213-0) [facility] DentonProthrombin Time (PT) / [id number] 11:36:00 Test Item Value Reference Range Interpretation [...] tions. Lab Interpretation (test Normal code = 56921-8) [facility] [id number] 06:38:00 Test Item Value Reference Range Interpretation Comments TROPONIN I (test 0.045 ng/mL See_Comment H [Automated code = 9968636558) message] The system which generated this result [...] ? Lab Interpretation Abnormal (test code = 10335-4) [facility] [id number] 06:38:00 Test Item Value Reference Range Interpretation Comments TROPONIN I (test 0.045 ng/mL See_Comment H [Automated code = 6385430589) message] The system which generated this result [...] ? Lab Interpretation Abnormal (test code = 87774-5) [facility] (NA, K, CL, CO2, GLUCOSE, BUN, CREATININE, CA)2020-03-23 06:29:00 Test Item Value Reference Range Interpretation Comments NA (test code = 137 mmol/L 135-145 2935644964) K (test code = 3.6 mmol/L 3.5-5 6595100684) CL (test code = 101 mmol/L 98-108 1029712554) CO2 TOTAL (test code = 27 mmol/L 23-31 3148288920) AGAP (test code = 2-16 6784889794) BUN (test code = 19 mg/dL 7-23 5623443695) GLUCOSE (test code = 153 mg/dL 70-110 H 3685189481) CREATININE (test code = 1.22 mg/dL 0.6-1.25 3068715518) CALCIUM (test code = 8.9 mg/dL 8.6-10.6 8772175731) eGFR Calculation mL/min/1.73m2 (Non-) (test code = 7373750890) eGFR Calculation mL/min/1.73m2 () (test code = 0670192747) ALYSSA (test code = ALYSSA) Association of [...] tests). Lab Interpretation Abnormal (test code = 85871-6) [facility]entonMAGNESIUM2020-05-08 06:29:00 Test Item Value Reference Range Interpretation Comments MAGNESIUM (test code = 3371350554) 1.7 mg/dL 1.7-2.4 Lab Interpretation (test code = Normal 17050-1) [facility] DentonLIPID PANEL (39394)(TOTAL CHOLESTEROL, TRIGLYCERIDES, HDL)2020-03-23 06:29:00 Test Item Value Reference Range Interpretation Comments CHOL (test code = 106 mg/dL 120-200 L 1899683655) HDL (test code = 46 mg/dL >40 0628743410) HDLC RATIO (test code = See_Comment [Au tomated message] 9019864598) The system [employer] generated this result transmit diamante reference range : <=5.0. The refe rence range was not u sed to interpret th is result as normal/abnormal . TRIG (test code = 74 mg/dL 30-170 9272541239) LDL CHOL (test code = 45 mg/dL See_Comment [Auto mated message] 56623-6) The system [employer] generated this result transmit diamante reference range : <=160. The refe rence range was not u sed to interpret th is result as normal/abnormal . VLDL (test code = 15 mg/dL 5-60 8735690686) Lab Interpretation (test Abnormal code = 28104-1) [facility] METABOLIC PANEL (NA, K, CL, CO2, GLUCOSE, BUN, CREATININE, CA)2020-03-23 06:29:00 Test Item Value Reference Range Interpretation Comments NA (test code = 137 mmol/L 135-145 5392048416) K (test code = 3.6 mmol/L 3.5-5 8783195850) CL (test code = 101 mmol/L 98-108 5536256302) CO2 TOTAL (test code = 27 mmol/L 23-31 0122134275) AGAP (test code = 2-16 9270468069) BUN (test code = 19 mg/dL 7-23 3638303812) GLUCOSE (test code = 153 mg/dL 70-110 H 7152725757) CREATININE (test code = 1.22 mg/dL 0.6-1.25 8479652030) CALCIUM (test code = 8.9 mg/dL 8.6-10.6 9415239044) eGFR Calculation mL/min/1.73m2 (Non-) (test code = 3041858037) eGFR Calculation mL/min/1.73m2 () (test code = 6494105637) ALYSSA (test code = ALYSSA) Association of [...] tests). Lab Interpretation Abnormal (test code = 38965-2) [facility]MAG[facility]IUM2020-05-08 06:29:00 Test Item Value Reference Range Interpretation Comments MAGNESIUM (test code = 4691432507) 1.7 mg/dL 1.7-2.4 Lab Interpretation (test code = Normal 55811-5) [facility] DentonLIPID PANEL (92626)(TOTAL CHOLESTEROL, TRIGLYCERIDES, HDL)2020-03-23 06:29:00 Test Item Value Reference Range Interpretation Comments CHOL (test code = 106 mg/dL 120-200 L 1760807507) HDL (test code = 46 mg/dL >40 0724882392) HDLC RATIO (test code = See_Comment [Au tomated message] 6202347205) The system [employer] generated this result transmit diamante reference range : <=5.0. The refe rence range was not u sed to interpret th is result as normal/abnormal . TRIG (test code = 74 mg/dL 30-170 0948985019) LDL CHOL (test code = 45 mg/dL See_Comment [Auto mated message] 82057-6) The system [employer] generated this result transmit diamante reference range : <=160. The refe rence range was not u sed to interpret th is result as normal/abnormal . VLDL (test code = 15 mg/dL 5-60 7811064917) Lab Interpretation (test Abnormal code = 53321-1) [facility] DentonaPTT2020-05-08 03:18:00 Test Item Value Reference Range Interpretation Comments APTT Patient (test code = See_Comment [ Automated message] 3173-2) The system [employer] generated this result transmitted ref erence range: 26 - 36 Seconds. The re ference range was not u sed to interpret this result as normal/abnor mal. Lab Interpretation (test Normal code = 77126-0) [facility] Test Item Value Reference Range Interpretation Comments APTT Patient (test code = See_Comment [ Automated message] 3173-2) The system [employer] generated this result transmitted ref erence range: 26 - 36 Seconds. The re ference range was not u sed to interpret this result as normal/abnor mal. Lab Interpretation (test Normal code = 72879-9) [facility] DentonPROTHROMBIN TIME / [id number] 03:07:00 Test Item Value Reference Range Interpretation Comments PROTIME PATIENT (test See_Comment [Auto mated message] code = 5964-2) The system [employer] generated this result transmitted ref erence range: 10.1 - 1 2.6 Seconds. The re ference range was not u sed to interpret this result as normal/abnor mal. INR (test code = 6301-6) Nor mal INR <1.1; Warfarin Therap eutic range 2.0 to 3. 0 or 2.5 to 3.5, dep ending upon the indica tions. Lab Interpretation (test Normal code = 78627-9) [facility] DentonPROTHROMBIN TIME / [id number] 03:07:00 Test Item Value Reference Range Interpretation Comments PROTIME PATIENT (test See_Comment [Auto mated message] code = 5964-2) The system [employer] generated this result transmitted ref erence range: 10.1 - 1 2.6 Seconds. The re ference range was not u sed to interpret this result as normal/abnor mal. INR (test code = 6301-6) Nor mal INR <1.1; Warfarin Therap eutic range 2.0 to 3. 0 or 2.5 to 3.5, dep ending upon the indica tions. Lab Interpretation (test Normal code = 30409-5) [facility]entonXR CHEST 2 [id number] 02:23:32 No acute cardiopulmonary process. Preliminary Report [...] reviewed this study and agree with the abovereport.[facility] CHEST 2 [id number] 02:23:32 No acute cardiopulmonary process. Preliminary Report [...] reviewed this study and agree with the abovereport.[facility] BranchCORONAVIRUS COVID-19 [id number] 01:23:00 Test Item Value Reference Range Interpretation Comments SARS-CoV-2 (test code = Not Detected Not Detected 63364-3) ALYSSA (test code = ALYSSA) ID NOW COVID-19 Assay is an isothermal nucleic acid amplification test intended for the qualitative detection of nucleic acid from SARS-CoV-2 viral RNA in nasopharyngeal ([employer]) specimens. It is used under Emergency Use [...] indicated. Lab Interpretation Normal (test code = 91424-4) [facility] [id number] 01:23:00 Test Item Value Reference Range Interpretation Comments SARS-CoV-2 (test code = Not Detected Not Detected 37602-4) ALYSSA (test code = ALYSSA) ID NOW COVID-19 Assay is an isothermal nucleic acid amplification test intended for the qualitative detection of nucleic acid from SARS-CoV-2 viral RNA in nasopharyngeal ([employer]) specimens. It is used under Emergency Use [...] indicated. Lab Interpretation Normal (test code = 70265-9) [facility] [id number] 00:12:00 Test Item Value Reference Range Interpretation Comments NT-proBNP (test code 585 pg/mL See_Comment H [Autom ated = 9876637044) message] The system which generated this result transmitted reference range : <=450. The reference range was not used to interpret this result as normal/abnormal . ALYSSA (test code = ALYSSA) Biotin has been reported to cause a negative bias, interpret results relative to patient's use of biotin. Lab Interpretation Abnormal (test code = 66464-0) [facility] [id number] 00:12:00 Test Item Value Reference Range Interpretation Comments TROPONIN I (test 0.030 ng/mL See_Comment [Automated code = 2397128132) message] The system which generated this result [...] ? Lab Interpretation Normal (test code = 20374-8) [facility] [id number] 00:12:00 Test Item Value Reference Range Interpretation Comments NT-proBNP (test code 585 pg/mL See_Comment H [Autom ated = 1345353783) message] The system which generated this result transmitted reference range : <=450. The reference range was not used to interpret this result as normal/abnormal . ALYSSA (test code = ALYSSA) Biotin has been reported to cause a negative bias, interpret results relative to patient's use of biotin. Lab Interpretation Abnormal (test code = 26976-6) [facility] [id number] 00:12:00 Test Item Value Reference Range Interpretation Comments TROPONIN I (test 0.030 ng/mL See_Comment [Automated code = 6885530904) message] The system which generated this result [...] ? Lab Interpretation Normal (test code = 20127-2) [facility]. METABOLIC PANEL (44254)2020-03-23 00:03:00 Test Item Value Reference Range Interpretation Comments NA (test code = 138 mmol/L 135-145 4430054049) K (test code = 4.1 mmol/L 3.5-5 4932442973) CL (test code = 103 mmol/L 98-108 9903845164) CO2 TOTAL (test code = 26 mmol/L 23-31 5961278661) AGAP (test code = 2-16 3439971841) BUN (test code = 18 mg/dL 7-23 5150202536) GLUCOSE (test code = 157 mg/dL 70-110 H 7426033247) CREATININE (test code = 1.19 mg/dL 0.6-1.25 5714170922) TOTAL BILI (test code = 1.1 mg/dL 0.1-1.3 4885705479) CALCIUM (test code = 9.2 mg/dL 8.6-10.6 1486816290) T PROTEIN (test code = 6.8 g/dL 6.3-8.2 7722765856) ALBUMIN (test code = 4.0 g/dL 3.5-5 0042592358) ALK PHOS (test code = 51 U/L 34-122 6770251058) ALTv (test code = 16 U/L 5-50 1742-6) AST(SGOT) (test code = 23 U/L 13-40 1851259810) eGFR Calculation mL/min/1.73m2 (Non-) (test code = 9339607760) eGFR Calculation mL/min/1.73m2 () (test code = 1660651790) ALYSSA (test code = ALYSSA) Association of [...] tests). Lab Interpretation Abnormal (test code = 68141-1) [facility]. METABOLIC PANEL (06359)2020-03-23 00:03:00 Test Item Value Reference Range Interpretation Comments NA (test code = 138 mmol/L 135-145 7376580218) K (test code = 4.1 mmol/L 3.5-5 7287996408) CL (test code = 103 mmol/L 98-108 7567805266) CO2 TOTAL (test code = 26 mmol/L 23-31 3957324631) AGAP (test code = 2-16 5214978159) BUN (test code = 18 mg/dL 7-23 1165108182) GLUCOSE (test code = 157 mg/dL 70-110 H 5481180917) CREATININE (test code = 1.19 mg/dL 0.6-1.25 6680897762) TOTAL BILI (test code = 1.1 mg/dL 0.1-1.9 5516722841) CALCIUM (test code = 9.2 mg/dL 8.6-10.6 9547003061) T PROTEIN (test code = 6.8 g/dL 6.3-8.2 6525899552) ALBUMIN (test code = 4.0 g/dL 3.5-5 6981726031) ALK PHOS (test code = 51 U/L 34-122 8828392031) ALTv (test code = 16 U/L 5-50 1742-6) AST(SGOT) (test code = 23 U/L 13-40 5440917790) eGFR Calculation mL/min/1.73m2 (Non-) (test code = 6680017863) eGFR Calculation mL/min/1.73m2 () (test code = 1047949565) ALYSSA (test code = ALYSSA) Association of [...] tests). Lab Interpretation Abnormal (test code = 27558-6) [facility] WITH [id number] 23:57:00 Test Item Value Reference Range Interpretation Comments WBC (test code = See_Comment [Automated 0919-2) message] The sy stem which generated this result transmitted reference range : 4.20 - 10.70 10*3/?L. The reference range was not used to interpret this result as normal/abnormal . RBC (test code = See_Comment L [Automated 015-8) message] The sy stem which generated this [...] RDW-SD (test code = 49.6 fL 38.5-51.6 12222-3) RDW-CV (test code = 14.6 % 12.1-15.4 788-0) PLT (test code = See_Comment L [Automated 777-3) message] The sy stem which generated this result transmitted reference range : 150 - 328 10*3/ ?L. The reference r corey was not used to interpret this result as normal/abnormal . MPV (test code = 9.9 fL 9.8-13 35883-8) NRBC/100 WBC (test See_Comment [Automat ed code = 5888833166) message] The system which generated this result transmitted reference range : 0.0 - 10.0 /100 WBCs. The refer ence range was not u sed to interpret th is result as normal/abnormal . NRBC x10^3 (test code <0.01 See_Comment [Auto mated = 5808888653) message] The s ystem which generated this result transmitted reference range : 10*3/?L. The reference range was not used to interpret this result as normal/abnormal . GRAN MAT (NEUT) % 55.3 % (test code = 770-8) IMM GRAN % (test code 0.20 % = 3644224503) LYMPH % (test code = 28.3 % 736-9) MONO % (test code = 12.6 % 5905-5) EOS % (test code = 3.1 % 713-8) BASO % (test code = 0.5 % 706-2) GRAN MAT x10^3(ANC) 3.20 10*3/uL 1.99-6.95 (test code = 0361264628) IMM GRAN x10^3 (test <0.03 0-0.06 code = 8978606625) LYMPH x10^3 (test code 1.64 10*3/uL 1.09-3.23 = 731-0) MONO x10^3 (test code 0.73 10*3/uL 0.36-1.02 = 742-7) EOS x10^3 (test code = 0.18 10*3/uL 0.06-0.53 711-2) BASO x10^3 (test code 0.03 10*3/uL 0.01-0.09 = 704-7) Lab Interpretation Abnormal (test code = 20200-2) [facility] WITH [id number] 23:57:00 Test Item Value Reference Range Interpretation [...] RDW-SD (test code = 49.6 fL 38.5-51.6 75834-0) RDW-CV (test code = 14.6 % 12.1-15.4 788-0) PLT (test code = See_Comment L [Automated 777-3) message] The sy stem which generated this result transmitted reference range : 150 - 328 10*3/ ?L. The reference r corey was not used to interpret this result as normal/abnormal . MPV (test code = 9.9 fL 9.8-13 83814-0) NRBC/100 WBC (test See_Comment [Automat ed code = 8801426342) message] The system which generated this result transmitted reference range : 0.0 - 10.0 /100 WBCs. The refer ence range was not u sed to interpret th is result as normal/abnormal . NRBC x10^3 (test code <0.01 See_Comment [Auto mated = 0653716115) message] The s ystem which generated this result transmitted reference range : 10*3/?L. The reference range was not used to interpret this result as normal/abnormal . GRAN MAT (NEUT) % 55.3 % (test code = 770-8) IMM GRAN % (test code 0.20 % = 8351696492) LYMPH % (test code = 28.3 % 736-9) MONO % (test code = 12.6 % 5905-5) EOS % (test code = 3.1 % 713-8) BASO % (test code = 0.5 % 706-2) GRAN MAT x10^3(ANC) 3.20 10*3/uL 1.99-6.95 (test code = 7539419027) IMM GRAN x10^3 (test <0.03 0-0.06 code = 2926409046) LYMPH x10^3 (test code 1.64 10*3/uL 1.09-3.23 = 731-0) MONO x10^3 (test code 0.73 10*3/uL 0.36-1.02 = 742-7) EOS x10^3 (test code = 0.18 10*3/uL 0.06-0.53 711-2) BASO x10^3 (test code 0.03 10*3/uL 0.01-0.09 = 704-7) Lab Interpretation Abnormal (test code = 67655-7) [facility] [id number] 21:48:00 Test Item Value Reference Range Interpretation Comments SARS-CoV-2 (test code = Not Detected Not Detected 06147-0) ALYSSA (test code = ALYSSA) ID NOW COVID-19 Assay is an isothermal nucleic acid amplification test intended for the qualitative detection of nucleic acid from SARS-CoV-2 viral RNA in nasopharyngeal ([employer]) specimens. It is used under Emergency Use [...] indicated. Lab Interpretation Normal (test code = 54684-7) [facility]enton[facility]rop[facility] [id number] 21:44:00 Test Item Value Reference Range Interpretation Comments TROPONIN I (test 0.027 ng/mL See_Comment [Automated code = 7855563759) message] The system which generated this result [...] ? Lab Interpretation Normal (test code = 92415-0) [facility]entonProthrombin Time (PT) / [id number] 21:41:00 Test Item Value Reference Range Interpretation [...] tions. Lab Interpretation (test Normal code = 30074-7) [facility] [id number] 21:39:00 Test Item Value Reference Range Interpretation Comments NT-proBNP (test code 663 pg/mL See_Comment H [Autom ated = 7185400459) message] The system which generated this result transmitted reference range : <=450. The reference range was not used to interpret this result as normal/abnormal . ALYSSA (test code = ALYSSA) Biotin has been reported to cause a negative bias, interpret results relative to patient's use of biotin. Lab Interpretation Abnormal (test code = 93479-2) [facility]entonCOMP. METABOLIC PANEL (17192)2020-03-21 21:37:00 Test Item Value Reference Range Interpretation Comments NA (test code = 139 mmol/L 135-145 5583638440) K (test code = 4.1 mmol/L 3.5-5 4396415931) CL (test code = 102 mmol/L 98-108 7465372765) CO2 TOTAL (test code = 29 mmol/L 23-31 7193671413) AGAP (test code = 2-16 5556716244) BUN (test code = 18 mg/dL 7-23 2894222996) GLUCOSE (test code = 277 mg/dL 70-110 H 3963508182) CREATININE (test code = 1.23 mg/dL 0.6-1.25 6889263532) TOTAL BILI (test code = 1.3 mg/dL 0.1-1.1 H 8417679249) CALCIUM (test code = 9.8 mg/dL 8.6-10.6 7698722641) T PROTEIN (test code = 7.0 g/dL 6.3-8.2 6225308007) ALBUMIN (test code = 4.2 g/dL 3.5-5 3959416433) ALK PHOS (test code = 50 U/L 34-122 4591558537) ALTv (test code = 15 U/L 5-50 1742-6) AST(SGOT) (test code = 22 U/L 13-40 0436100804) eGFR Calculation mL/min/1.73m2 (Non-) (test code = 6336042088) eGFR Calculation mL/min/1.73m2 () (test code = 4060705757) ALYSSA (test code = ALYSSA) Association of [...] tests). Lab Interpretation Abnormal (test code = 55698-2) [facility] DentonLipase [id number] 21:37:00 Test Item Value Reference Range Interpretation Comments LIPASE (test code = 6372069275) 161 U/L 0-220 Lab Interpretation (test code = Normal 78777-0) [facility] 1 [id number] 20:46:31HISTORY: Chest pain. TECHNIQUE: Portable AP view [...] noted. Mild thoracolumbar scoliosis noted.CONCLUSIONS: Mild cardiomegaly. [facility] DentonLacoic Acid Whole [id number] 20:43:00 Test Item Value Reference Range Interpretation Comments LACTIC ACID (test code = 1.91 mmol/L 0.3-2.6 1949992365) [facility] GLUCOSE (AUTOMATED)2020-03-07 20:58:00 Test Item Value Reference Range Interpretation Comments POCT GLU (test code = 4850402890) 216 mg/dL 70-110 H Lab Interpretation (test code = Abnormal 51198-8) [facility] GLUCOSE (AUTOMATED)2020-03-07 16:00:00 Test Item Value Reference Range Interpretation Comments POCT GLU (test code = 1708753173) 168 mg/dL 70-110 H Lab Interpretation (test code = Abnormal 42132-3) [facility] GLUCOSE (AUTOMATED)2020-03-07 13:07:00 Test Item Value Reference Range Interpretation Comments POCT GLU (test code = 0580762351) 148 mg/dL 70-110 H Lab Interpretation (test code = Abnormal 67770-9) [facility]entonTROP[facility]IN [id number] 11:27:00 Test Item Value Reference Range Interpretation Comments TROPONIN I (test 0.051 ng/mL See_Comment H [Automated code = 0729831529) message] The system which generated this result [...] ? Lab Interpretation Abnormal (test code = 28218-0) [facility] [id number] 11:24:00 Test Item Value Reference Range Interpretation Comments NT-proBNP (test code 336 pg/mL See_Comment [Autom ated = 8652107106) message] The system which generated this result transmitted reference range : <=450. The reference range was not used to interpret this result as normal/abnormal . ALYSSA (test code = ALYSSA) Biotin has been reported to cause a negative bias, interpret results relative to patient's use of biotin. Lab Interpretation Normal (test code = 64356-1) [facility] DentonBasi Metabolic Panel (NA, K, CL, CO2, GLUCOSE, BUN, CREATININE, CA)2020-03-07 11:14:00 Test Item Value Reference Range Interpretation Comments NA (test code = 138 mmol/L 135-145 7728703062) K (test code = 3.8 mmol/L 3.5-5 4832914196) CL (test code = 97 mmol/L 98-108 L 6325871380) CO2 TOTAL (test code = 30 mmol/L 23-31 8846921999) AGAP (test code = 2-16 4280313123) BUN (test code = 36 mg/dL 7-23 H 1186753232) GLUCOSE (test code = 140 mg/dL 70-110 H 0655805856) CREATININE (test code = 1.50 mg/dL 0.6-1.25 H 4100777995) CALCIUM (test code = 10.0 mg/dL 8.6-10.6 7094863350) eGFR Calculation mL/min/1.73m2 (Non-) (test code = 1192193776) eGFR Calculation mL/min/1.73m2 () (test code = 0194171662) ALYSSA (test code = ALYSSA) Association of [...] tests). Lab Interpretation Abnormal (test code = 24769-0) [facility] [id number] 11:14:00 Test Item Value Reference Range Interpretation Comments URIC ACID (test code = 3772062478) 5.4 mg/dL 3.6-8 Lab Interpretation (test code = Normal 69928-3) [facility] WITH [id number] 10:53:00 Test Item Value Reference Range Interpretation [...] RDW-SD (test code = 45.1 fL 38.5-51.6 39610-6) RDW-CV (test code = 14.2 % 12.1-15.4 788-0) PLT (test code = See_Comment [Automated 777-3) message] The sy stem which generated this result transmitted reference range : 150 - 328 10*3/ ?L. The reference r corey was not used to interpret this result as normal/abnormal . MPV (test code = 9.8 fL 9.8-13 56645-7) NRBC/100 WBC (test See_Comment [Automat ed code = 4375873382) message] The system which generated this result transmitted reference range : 0.0 - 10.0 /100 WBCs. The refer ence range was not u sed to interpret th is result as normal/abnormal . NRBC x10^3 (test code <0.01 See_Comment [Auto mated = 8153997578) message] The s ystem which generated this result transmitted reference range : 10*3/?L. The reference range was not used to interpret this result as normal/abnormal . GRAN MAT (NEUT) % 51.0 % (test code = 770-8) IMM GRAN % (test code 0.50 % = 4385244270) LYMPH % (test code = 32.0 % 736-9) MONO % (test code = 11.3 % 5905-5) EOS % (test code = 4.3 % 713-8) BASO % (test code = 0.9 % 706-2) GRAN MAT x10^3(ANC) 2.85 10*3/uL 1.99-6.95 (test code = 4942063887) IMM GRAN x10^3 (test 0.03 10*3/uL 0-0.06 code = 4143050655) LYMPH x10^3 (test code 1.79 10*3/uL 1.09-3.23 = 731-0) MONO x10^3 (test code 0.63 10*3/uL 0.36-1.02 = 742-7) EOS x10^3 (test code = 0.24 10*3/uL 0.06-0.53 711-2) BASO x10^3 (test code 0.05 10*3/uL 0.01-0.09 = 704-7) Lab Interpretation Abnormal (test code = 26421-0) [facility] GLUCOSE (AUTOMATED)2020-03-06 22:46:00 Test Item Value Reference Range Interpretation Comments POCT GLU (test code = 9216036515) 209 mg/dL 70-110 H Lab Interpretation (test code = Abnormal 44409-5) [facility] GLUCOSE (AUTOMATED)2020-03-06 16:23:00 Test Item Value Reference Range Interpretation Comments POCT GLU (test code = 6418833447) 254 mg/dL 70-110 H Lab Interpretation (test code = Abnormal 86903-8) [facility] GLUCOSE (AUTOMATED)2020-03-06 12:51:00 Test Item Value Reference Range Interpretation Comments POCT GLU (test code = 7886391995) 126 mg/dL 70-110 H Lab Interpretation (test code = Abnormal 03146-1) [facility]entonTR[facility] [id number] 10:16:00 Test Item Value Reference Range Interpretation Comments TROPONIN I (test 0.056 ng/mL See_Comment H [Automated code = 0675867421) message] The system which generated this result [...] ? Lab Interpretation Abnormal (test code = 08572-7) [facility] (NA, K, CL, CO2, GLUCOSE, BUN, CREATININE, CA)2020-03-06 10:13:00 Test Item Value Reference Range Interpretation Comments NA (test code = 136 mmol/L 135-145 9412917785) K (test code = 4.1 mmol/L 3.5-5 0145661954) CL (test code = 95 mmol/L 98-108 L 4142402544) CO2 TOTAL (test code = 30 mmol/L 23-31 3070321695) AGAP (test code = 2-16 0031317554) BUN (test code = 35 mg/dL 7-23 H 3835084607) GLUCOSE (test code = 174 mg/dL 70-110 H 9224789191) CREATININE (test code = 1.67 mg/dL 0.6-1.25 H 8444504938) CALCIUM (test code = 9.7 mg/dL 8.6-10.6 0213028700) eGFR Calculation mL/min/1.73m2 (Non-) (test code = 8573013238) eGFR Calculation mL/min/1.73m2 () (test code = 7659835979) ALYSSA (test code = ALYSSA) Association of [...] tests). Lab Interpretation Abnormal (test code = 28256-5) [facility] WITH [id number] 09:16:00 Test Item Value Reference Range Interpretation Comments WBC (test code = See_Comment [Automated 2678-2) message] The sy stem which generated this result transmitted reference range : 4.20 - 10.70 10*3/?L. The reference range was not used to interpret this result as normal/abnormal . RBC (test code = See_Comment L [Automated 279-8) message] The sy stem which generated this [...] RDW-SD (test code = 45.6 fL 38.5-51.6 69705-5) RDW-CV (test code = 14.3 % 12.1-15.4 788-0) PLT (test code = See_Comment [Automated 777-3) message] The sy stem which generated this result transmitted reference range : 150 - 328 10*3/ ?L. The reference r corey was not used to interpret this result as normal/abnormal . MPV (test code = 9.8 fL 9.8-13 74539-0) NRBC/100 WBC (test See_Comment [Automat ed code = 9313401862) message] The system which generated this result transmitted reference range : 0.0 - 10.0 /100 WBCs. The refer ence range was not u sed to interpret th is result as normal/abnormal . NRBC x10^3 (test code <0.01 See_Comment [Auto mated = 8224666140) message] The s ystem which generated this result transmitted reference range : 10*3/?L. The reference range was not used to interpret this result as normal/abnormal . GRAN MAT (NEUT) % 56.1 % (test code = 770-8) IMM GRAN % (test code 0.10 % = 9396799177) LYMPH % (test code = 29.7 % 736-9) MONO % (test code = 9.6 % 5905-5) EOS % (test code = 3.8 % 713-8) BASO % (test code = 0.7 % 706-2) GRAN MAT x10^3(ANC) 3.79 10*3/uL 1.99-6.95 (test code = 4476954489) IMM GRAN x10^3 (test <0.03 0-0.06 code = 0755088109) LYMPH x10^3 (test code 2.01 10*3/uL 1.09-3.23 = 731-0) MONO x10^3 (test code 0.65 10*3/uL 0.36-1.02 = 742-7) EOS x10^3 (test code = 0.26 10*3/uL 0.06-0.53 711-2) BASO x10^3 (test code 0.05 10*3/uL 0.01-0.09 = 704-7) Lab Interpretation Abnormal (test code = 67371-6) [facility]2020-03-06 01:25:00 Test Item Value Reference Range Interpretation Comments POCT GLU (test code = 6325421498) 208 mg/dL 70-110 H Lab Interpretation (test code = Abnormal 57115-7) [facility] [id number] 00:08:00 Test Item Value Reference Range Interpretation Comments TROPONIN I (test 0.047 ng/mL See_Comment H [Automated code = 3800708372) message] The system which generated this result [...] ? Lab Interpretation Abnormal (test code = 78570-9) [facility] GLUCOSE (AUTOMATED)2020-03-05 21:19:00 Test Item Value Reference Range Interpretation Comments POCT GLU (test code = 8812622676) 234 mg/dL 70-110 H Lab Interpretation (test code = Abnormal 20831-6) [facility] GLUCOSE (AUTOMATED)2020-03-05 16:55:00 Test Item Value Reference Range Interpretation Comments POCT GLU (test code = 3720097328) 258 mg/dL 70-110 H Lab Interpretation (test code = Abnormal 53300-7) [facility] GLUCOSE (AUTOMATED)2020-03-05 12:59:00 Test Item Value Reference Range Interpretation Comments POCT GLU (test code = 2430616856) 194 mg/dL 70-110 H Lab Interpretation (test code = Abnormal 70393-3) [facility] [id number] 10:54:00 Test Item Value Reference Range Interpretation Comments TROPONIN I (test 0.071 ng/mL See_Comment H [Automated code = 4739522486) message] The system which generated this result [...] ? Lab Interpretation Abnormal (test code = 64558-7) [facility] (NA, K, CL, CO2, GLUCOSE, BUN, CREATININE, CA)2020-03-05 10:43:00 Test Item Value Reference Range Interpretation Comments NA (test code = 139 mmol/L 135-145 5456046610) K (test code = 4.1 mmol/L 3.5-5 6571286867) CL (test code = 101 mmol/L 98-108 6870429916) CO2 TOTAL (test code = 27 mmol/L 23-31 5555747544) AGAP (test code = 2-16 7424999616) BUN (test code = 25 mg/dL 7-23 H 7408005261) GLUCOSE (test code = 243 mg/dL 70-110 H 1253830452) CREATININE (test code = 1.22 mg/dL 0.6-1.25 6751705157) CALCIUM (test code = 9.8 mg/dL 8.6-10.6 7273758219) eGFR Calculation mL/min/1.73m2 (Non-) (test code = 8791979824) eGFR Calculation mL/min/1.73m2 () (test code = 0246367674) ALYSSA (test code = ALYSSA) Association of [...] tests). Lab Interpretation Abnormal (test code = 05161-1) [facility] WITH [id number] 10:23:00 Test Item Value Reference Range Interpretation Comments WBC (test code = See_Comment [Automated message] 6690-2) The system [employer] generated this result transmitted ref erence range: 4.20 - 1 0.70 10*3/?L. The re ference range was not u sed to interpret this result as normal/abnor mal. RBC (test code = See_Comment [Automated message] 499-8) The system [employer] generated this result transmitted ref erence range: [...] RDW-SD (test code 47.8 fL 38.5-51.6 = 62764-3) RDW-CV (test code 14.4 % 12.1-15.4 = 788-0) PLT (test code = See_Comment [Automated message] 837-3) The system [employer] generated this result transmitted ref erence range: 150 - 32 8 10*3/?L. The re ference range was not u sed to interpret this result as normal/abnor mal. MPV (test code = 9.8 fL 9.8-13 38130-8) NRBC/100 WBC (test See_Comment [Automat ed message] code = 4360735354) The syste m which generated this result transmitted ref erence range: 0.0 - 10 .0 /100 WBCs. The refer ence range was not u sed to interpret this result as normal/abnor mal. NRBC x10^3 (test <0.01 See_Comment [Automated message] code = 9734025340) The syste m which generated this result transmitted ref erence range: 10*3/?L. The reference range was not used to interpr et this result as normal/abnormal . GRAN MAT (NEUT) % 48.8 % (test code = 770-8) IMM GRAN % (test 0.20 % code = 5773181616) LYMPH % (test code 34.7 % = 736-9) MONO % (test code 10.8 % = 5905-5) EOS % (test code = 4.9 % 713-8) BASO % (test code 0.6 % = 706-2) GRAN MAT 2.49 10*3/uL 1.99-6.95 x10^3(ANC) (test code = 3594583421) IMM GRAN x10^3 <0.03 0-0.06 (test code = 4887433914) LYMPH x10^3 (test 1.77 10*3/uL 1.09-3.23 code = 731-0) MONO x10^3 (test 0.55 10*3/uL 0.36-1.02 code = 742-7) EOS x10^3 (test 0.25 10*3/uL 0.06-0.53 code = 711-2) BASO x10^3 (test 0.03 10*3/uL 0.01-0.09 code = 704-7) [facility]entonXR CHEST 1 [id number] 03:06:08 No acute cardiopulmonary process. Unchanged enlargement [...] the cardiac silhouette.Preliminary Report Dictated by Resident: Artemio Stratton, Lauro Aguilar MD., have reviewed this study and agree with the abovereport.[facility] CORONAVIRUS COVID-19 [id number] 00:34:00 Test Item Value Reference Range Interpretation Comments SARS-CoV-2 (test code = Not Detected Not Detected 24737-8) ALYSSA (test code = ALYSSA) ID NOW COVID-19 Assay is an isothermal nucleic acid amplification test intended for the qualitative detection of nucleic acid from SARS-CoV-2 viral RNA in nasopharyngeal ([employer]) specimens. It is used under Emergency Use [...] indicated. Lab Interpretation Normal (test code = 58958-9) [facility]entonTroponin [id number] 00:08:00 Test Item Value Reference Range Interpretation Comments TROPONIN I (test 0.056 ng/mL See_Comment H [Automated code = 5986901844) message] The system which generated this result [...] ? Lab Interpretation Abnormal (test code = 82144-5) [facility]entonN-TERMINAL [id number] 00:04:00 Test Item Value Reference Range Interpretation Comments NT-proBNP (test code 562 pg/mL See_Comment H [Autom ated = 1448273245) message] The system which generated this result transmitted reference range : <=450. The reference range was not used to interpret this result as normal/abnormal . ALYSSA (test code = ALYSSA) Biotin has been reported to cause a negative bias, interpret results relative to patient's use of biotin. Lab Interpretation Abnormal (test code = 31164-2) [facility] DentonProthrombin Time (PT) / [id number] 23:57:00 Test Item Value Reference Range Interpretation [...] tions. Lab Interpretation (test Normal code = 83841-9) [facility] Metabolic Panel (NA, K, CL, CO2, GLUCOSE, BUN, CREATININE, CA)2020-03-04 23:56:00 Test Item Value Reference Range Interpretation Comments NA (test code = 139 mmol/L 135-145 7724661918) K (test code = 4.1 mmol/L 3.5-5 7341062245) CL (test code = 102 mmol/L 98-108 3203883116) CO2 TOTAL (test code = 29 mmol/L 23-31 2927569067) AGAP (test code = 2-16 4004436169) BUN (test code = 23 mg/dL 7-23 6578174329) GLUCOSE (test code = 193 mg/dL 70-110 H 5101867089) CREATININE (test code = 1.25 mg/dL 0.6-1.25 2452649913) CALCIUM (test code = 9.7 mg/dL 8.6-10.6 5649572239) eGFR Calculation mL/min/1.73m2 (Non-) (test code = 2888029048) eGFR Calculation mL/min/1.73m2 () (test code = 4065600684) ALYSSA (test code = ALYSSA) Association of [...] tests). Lab Interpretation Abnormal (test code = 82396-9) [facility] DentonHepatic Function Panel (ALB, T.PRO, BILI T, BU/BC, ALT, AST, ALK PHOS)2020-03-04 23:56:00 Test Item Value Reference Range Interpretation Comments TOTAL BILI (test code = 5256086996) 1.1 mg/dL 0.1-1.1 BILI UNCON (test code = 6971421103) 1.1 mg/dL 0.1-1.1 BILI CONJ (test code = 8717122372) 0.0 mg/dL 0-0.3 T PROTEIN (test code = 9065151659) 7.1 g/dL 6.3-8.2 ALBUMIN (test code = 5769820085) 4.1 g/dL 3.5-5 ALK PHOS (test code = 7281263751) 61 U/L 34-122 ALTv (test code = 1742-6) 16 U/L 5-50 AST(SGOT) (test code = 5430466858) 23 U/L 13-40 Lab Interpretation (test code = Normal 15668-7) [facility] DentonLipase [id number] 23:56:00 Test Item Value Reference Range Interpretation Comments LIPASE (test code = 8563603596) 149 U/L 0-220 Lab Interpretation (test code = Normal 74198-0) [facility] DentonaPTT2020-04-19 23:56:00 Test Item Value Reference Range Interpretation Comments APTT Patient (test See_Comment [Automat ed code = 3173-2) message] The system which generated this result transmitted reference range : 23 - 38 Seconds . The reference range was not used to interpr et this result as normal/abnormal . ALYSSA (test code = ALYSSA) The [facility] patient population mean normal value for aPTT is 30 seconds. Lab Interpretation Normal (test code = 82845-5) [facility] WITH [id number] 23:46:00 Test Item Value Reference Range Interpretation Comments WBC (test code = See_Comment [Automated 6890-2) message] The sy stem which generated this [...] RDW-SD (test code = 48.3 fL 38.5-51.6 57326-9) RDW-CV (test code = 14.7 % 12.1-15.4 788-0) PLT (test code = See_Comment [Automated 777-3) message] The sy stem which generated this result transmitted reference range : 150 - 328 10*3/ ?L. The reference r corey was not used to interpret this result as normal/abnormal . MPV (test code = 9.8 fL 9.8-13 51300-4) NRBC/100 WBC (test See_Comment [Automat ed code = 8660119895) message] The system which generated this result transmitted reference range : 0.0 - 10.0 /100 WBCs. The refer ence range was not u sed to interpret th is result as normal/abnormal . NRBC x10^3 (test code <0.01 See_Comment [Auto mated = 8289966557) message] The s ystem which generated this result transmitted reference range : 10*3/?L. The reference range was not used to interpret this result as normal/abnormal . GRAN MAT (NEUT) % 60.1 % (test code = 770-8) IMM GRAN % (test code 0.20 % = 5802206961) LYMPH % (test code = 26.4 % 736-9) MONO % (test code = 9.9 % 5905-5) EOS % (test code = 2.8 % 713-8) BASO % (test code = 0.6 % 706-2) GRAN MAT x10^3(ANC) 3.17 10*3/uL 1.99-6.95 (test code = 2231512386) IMM GRAN x10^3 (test <0.03 0-0.06 code = 7785055339) LYMPH x10^3 (test code 1.39 10*3/uL 1.09-3.23 = 731-0) MONO x10^3 (test code 0.52 10*3/uL 0.36-1.02 = 742-7) EOS x10^3 (test code = 0.15 10*3/uL 0.06-0.53 711-2) BASO x10^3 (test code 0.03 10*3/uL 0.01-0.09 = 704-7) Lab Interpretation Abnormal (test code = 46801-5) [facility] GLUCOSE (AUTOMATED)2020-03-02 16:04:00 Test Item Value Reference Range Interpretation Comments POCT GLU (test code = 0218328673) 214 mg/dL 70-110 H Lab Interpretation (test code = Abnormal 00317-3) [facility] GLUCOSE (AUTOMATED)2020-03-02 16:04:00 Test Item Value Reference Range Interpretation Comments POCT GLU (test code = 2893306244) 271 mg/dL 70-110 H Lab Interpretation (test code = Abnormal 98903-9) [facility]entonN-TERMINAL [id number] 09:43:00 Test Item Value Reference Range Interpretation Comments NT-proBNP (test code 1670 pg/mL See_Comment H [Autom ated = 1683418498) message] The system which generated this result transmitted reference range : <=450. The reference range was not used to interpret this result as normal/abnormal . ALYSSA (test code = ALYSSA) Biotin has been reported to cause a negative bias, interpret results relative to patient's use of biotin. Lab Interpretation Abnormal (test code = 60831-7) [facility] METABOLIC PANEL (NA, K, CL, CO2, GLUCOSE, BUN, CREATININE, CA)2020-03-02 09:33:00 Test Item Value Reference Range Interpretation Comments NA (test code = 143 mmol/L 135-145 4081787436) K (test code = 3.8 mmol/L 3.5-5 0787807052) CL (test code = 105 mmol/L 98-108 8655567828) CO2 TOTAL (test code = 28 mmol/L 23-31 8357887719) AGAP (test code = 2-16 4888576614) BUN (test code = 19 mg/dL 7-23 6339399337) GLUCOSE (test code = 152 mg/dL 70-110 H 7477954961) CREATININE (test code = 1.18 mg/dL 0.6-1.25 8974154483) CALCIUM (test code = 9.0 mg/dL 8.6-10.6 7411397717) eGFR Calculation mL/min/1.73m2 (Non-) (test code = 3669698709) eGFR Calculation mL/min/1.73m2 () (test code = 6496860071) ALYSSA (test code = ALYSSA) Association of [...] tests). Lab Interpretation Abnormal (test code = 34222-9) [facility]entonMAGNESIUM2020-04-17 09:33:00 Test Item Value Reference Range Interpretation Comments MAGNESIUM (test code = 6938513533) 1.8 mg/dL 1.7-2.4 Lab Interpretation (test code = Normal 11249-2) [facility]entonPOCT GLUCOSE (AUTOMATED)2020-03-01 20:42:00 Test Item Value Reference Range Interpretation Comments POCT GLU (test code = 0508795383) 231 mg/dL 70-110 H Lab Interpretation (test code = Abnormal 43566-3) [facility] DentonVITAMIN B12, [id number] 11:51:00 Test Item Value Reference Range Interpretation Comments VIT B12 (test code = 325 pg/mL 240-930 3296641008) ALYSSA (test code = ALYSSA) Biotin has been reported to cause a positive bias, interpret results relative to patient's use of biotin. Lab Interpretation (test Normal code = 14857-2) [facility] DentonFOLATE2020-04-16 11:49:00 Test Item Value Reference Range Interpretation Comments FOLATE SER (test code = >20.0 3-20 H Slig ht hemolysis 7259441418) Lab Interpretation (test Abnormal code = 94095-9) [facility] DentonPROCALCITONIN2020-04-16 10:49:00 Test Item Value Reference Range Interpretation Comments Procalcitonin (test 3.05 ng/mL <0.07 H code = 4811906156) ALYSSA (test code = ALYSSA) INTERPRETATION OF [...] lung abscess/empyema. For further information please refer to:[email or web address] Lab Interpretation Abnormal (test code = 00860-9) [facility] DentonTROPONIN [id number] 09:58:00 Test Item Value Reference Range Interpretation Comments TROPONIN I (test 0.093 ng/mL See_Comment H [Automated code = 5487110418) message] The system which generated this result [...] ? Lab Interpretation Abnormal (test code = 61338-9) [facility] DentonN-TERMINAL [id number] 09:55:00 Test Item Value Reference Range Interpretation Comments NT-proBNP (test code 4450 pg/mL See_Comment H [Autom ated = 2547146936) message] The system which generated this result transmitted reference range : <=450. The reference range was not used to interpret this result as normal/abnormal . ALYSSA (test code = ALYSSA) Biotin has been reported to cause a negative bias, interpret results relative to patient's use of biotin. Lab Interpretation Abnormal (test code = 98036-6) [facility] (NA, K, CL, CO2, GLUCOSE, BUN, CREATININE, CA)2020-03-01 09:50:00 Test Item Value Reference Range Interpretation Comments NA (test code = 141 mmol/L 135-145 9333442474) K (test code = 3.5 mmol/L 3.5-5 6678528764) CL (test code = 105 mmol/L 98-108 4984930478) CO2 TOTAL (test code = 26 mmol/L 23-31 9047198170) AGAP (test code = 2-16 8451348089) BUN (test code = 13 mg/dL 7-23 1440992772) GLUCOSE (test code = 219 mg/dL 70-110 H 1705704368) CREATININE (test code = 1.01 mg/dL 0.6-1.25 9941052663) CALCIUM (test code = 8.7 mg/dL 8.6-10.6 1559717259) eGFR Calculation mL/min/1.73m2 (Non-) (test code = 2642302200) eGFR Calculation mL/min/1.73m2 () (test code = 5694248599) ALYSSA (test code = ALYSSA) Association of [...] tests). Lab Interpretation Abnormal (test code = 52422-0) [facility] DentonMagnesium [id number] 09:50:00 Test Item Value Reference Range Interpretation Comments MAGNESIUM (test code = 9941699740) 1.9 mg/dL 1.7-2.4 Lab Interpretation (test code = Normal 62660-2) [facility] DentonCB WITH [id number] 09:22:00 Test Item Value Reference Range Interpretation Comments WBC (test code = See_Comment [Automated 2390-2) message] The sy stem which generated this result transmitted reference range : 4.20 - 10.70 10*3/?L. The reference range was not used to interpret this result as normal/abnormal . RBC (test code = See_Comment L [Automated 289-8) message] The sy stem which generated this [...] RDW-SD (test code = 47.8 fL 38.5-51.6 70502-9) RDW-CV (test code = 14.8 % 12.1-15.4 788-0) PLT (test code = See_Comment L [Automated 777-3) message] The sy stem which generated this result transmitted reference range : 150 - 328 10*3/ ?L. The reference r corey was not used to interpret this result as normal/abnormal . MPV (test code = 9.9 fL 9.8-13 79525-1) NRBC/100 WBC (test See_Comment [Automat ed code = 5178398823) message] The system which generated this result transmitted reference range : 0.0 - 10.0 /100 WBCs. The refer ence range was not u sed to interpret th is result as normal/abnormal . NRBC x10^3 (test code <0.01 See_Comment [Auto mated = 8985194934) message] The s ystem which generated this result transmitted reference range : 10*3/?L. The reference range was not used to interpret this result as normal/abnormal . GRAN MAT (NEUT) % 66.0 % (test code = 770-8) IMM GRAN % (test code 0.30 % = 3943021801) LYMPH % (test code = 20.8 % 736-9) MONO % (test code = 9.5 % 5905-5) EOS % (test code = 2.8 % 713-8) BASO % (test code = 0.6 % 706-2) GRAN MAT x10^3(ANC) 4.44 10*3/uL 1.99-6.95 (test code = 7451279824) IMM GRAN x10^3 (test <0.03 0-0.06 code = 4472509468) LYMPH x10^3 (test code 1.40 10*3/uL 1.09-3.23 = 731-0) MONO x10^3 (test code 0.64 10*3/uL 0.36-1.02 = 742-7) EOS x10^3 (test code = 0.19 10*3/uL 0.06-0.53 711-2) BASO x10^3 (test code 0.04 10*3/uL 0.01-0.09 = 704-7) Lab Interpretation Abnormal (test code = 89154-4) [facility] DentonGLYCOSYLATED HEMOGLOBIN (A1C)2020-03-01 06:49:00 Test Item Value Reference [...] Indicated Lab Interpretation Abnormal (test code = 20094-6) [facility] DentonURIC [id number] 06:25:00 Test Item Value Reference Range Interpretation Comments URIC ACID (test code = 1078524307) 2.3 mg/dL 3.6-8 L Lab Interpretation (test code = Abnormal 58323-2) [facility] DentonSEDIMENTATION [id number] 05:25:00 Test Item Value Reference Range Interpretation Comments ESR (test code = See_Comment H [Automated message] 1894739895) The system [employer] h generated this result transmitted ref erence range: 0 - 10 m m/HR. The reference r corey was not used to interpret this result as normal/abnor mal. Lab Interpretation (test Abnormal code = 14955-4) [facility] DentonN-TERMINAL [id number] 04:07:00 Test Item Value Reference Range Interpretation Comments NT-proBNP (test code 4080 pg/mL See_Comment H [Autom ated = 7705261549) message] The system which generated this result transmitted reference range : <=450. The reference range was not used to interpret this result as normal/abnormal . ALYSSA (test code = ALYSSA) Biotin has been reported to cause a negative bias, interpret results relative to patient's use of biotin. Lab Interpretation Abnormal (test code = 13266-2) [facility] DentonPOCT GLUCOSE (AUTOMATED)2020-03-01 03:42:00 Test Item Value Reference Range Interpretation Comments POCT GLU (test code = 2879387749) 190 mg/dL 70-110 H Lab Interpretation (test code = Abnormal 05552-9) [facility] DentonTROPONIN [id number] 03:30:00 Test Item Value Reference Range Interpretation Comments TROPONIN I (test 0.098 ng/mL See_Comment H [Automated code = 0348431987) message] The system which generated this result [...] ? Lab Interpretation Abnormal (test code = 62451-1) [facility] DentonHEPATIC FUNCTION PANEL (60724) (ALB,T.PRO,BILI T,BU/BC,ALT,AST,ALK PHOS)2020-03-01 03:24:00 Test Item Value Reference Range Interpretation Comments TOTAL BILI (test code = 8749351720) 2.2 mg/dL 0.1-1.1 H BILI UNCON (test code = 5736400623) 2.0 mg/dL 0.1-1.1 H BILI CONJ (test code = 7846842618) 0.0 mg/dL 0-0.3 T PROTEIN (test code = 6478554991) 6.7 g/dL 6.3-8.2 ALBUMIN (test code = 5910853817) 4.0 g/dL 3.5-5 ALK PHOS (test code = 2518144873) 48 U/L 34-122 ALTv (test code = 1742-6) 18 U/L 5-50 AST(SGOT) (test code = 3165064990) 57 U/L 13-40 H Lab Interpretation (test code = Abnormal 98797-0) [facility] DentonPhosphorus [id number] 03:17:00 Test Item Value Reference Range Interpretation Comments PHOSPHORUS (test code = 3.1 mg/dL 2.5-5 Slig ht hemolysis 1518676342) Lab Interpretation (test Normal code = 21251-4) [facility] DentonPROTHROMBIN TIME / [id number] 03:08:00 Test Item Value Reference Range Interpretation Comments PROTIME PATIENT (test See_Comment [Auto mated message] code = 5964-2) The system [facility] generated this result transmitted ref erence range: 12.0 - 1 4.7 Seconds. The re ference range was not u sed to interpret this result as normal/abnor mal. INR (test code = 6301-6) Nor mal INR <1.1; Warfarin Therap eutic range 2.0 to 3. 0 or 2.5 to 3.5, dep ending upon the indica tions. Lab Interpretation (test Normal code = 26944-1) [facility] DentonCREATINE [id number] 03:01:00 Test Item Value Reference Range Interpretation Comments CK (test code = 1203209919) 68 U/L 33-194 Lab Interpretation (test code = Normal 99619-8) [facility] DentonURIC [id number] 02:41:00 Test Item Value Reference Range Interpretation Comments URIC ACID (test code = 8804997610) 2.3 mg/dL 3.6-8 L Lab Interpretation (test code = Abnormal 20844-2) [facility] DentonTHYROID STIMULATING [id number] 02:26:00 Test Item Value Reference Range Interpretation Comments TSH (test code = See_Comment [Automated message] 2821171392) The system [facility] h generated this result transmitted ref erence range: 0.45 - 4 .70 mIU/L. The refe rence range was not u sed to interpret this result as normal/abnor mal. Lab Interpretation (test Normal code = 62716-7) [facility] DentonN-TERMINAL [id number] 02:04:00 Test Item Value Reference Range Interpretation Comments NT-proBNP (test code 4390 pg/mL See_Comment H [Autom ated = 6224340514) message] The system which generated this result transmitted reference range : <=450. The reference range was not used to interpret this result as normal/abnormal . ALYSSA (test code = ALYSSA) Biotin has been reported to cause a negative bias, interpret results relative to patient's use of biotin. Lab Interpretation Abnormal (test code = 84110-2) [facility] DentonMAGNESIUM2020-04-16 02:01:00 Test Item Value Reference Range Interpretation Comments MAGNESIUM (test code = 6563095522) 1.5 mg/dL 1.7-2.4 L Lab Interpretation (test code = Abnormal 06215-1) [facility] DentonLIPASE2020-04-16 00:22:00 Test Item Value Reference Range Interpretation Comments LIPASE (test code = 5233811632) 68 U/L 0-220 Lab Interpretation (test code = Normal 46836-8) [facility] DentonCORONAVIRUS COVID-19 [id number] 23:42:00 Test Item Value Reference Range Interpretation Comments SARS-CoV-2 (test code = Not Detected Not Detected 77112-8) ALYSSA (test code = ALYSSA) ID NOW COVID-19 Assay is an isothermal nucleic acid amplification test intended for the qualitative detection of nucleic acid from SARS-CoV-2 viral RNA in nasopharyngeal ([employer]) specimens. It is used under Emergency Use [...] indicated. Lab Interpretation Normal (test code = 78517-5) [facility] DentonXR CHEST 1 VW [id number] 23:26:02 No acute intrathoracic abnormality, specifically no radiographic findingsto suggest COVID-19 pneumonia. Disclaimer: Generally, the findings on chest imaging in COVID-19 are notspecific, and overlap with other infections, including influenza, H1N1,SARS and MERS. According to the Centers for Disease Control (CDC) and recent statement ofthe [employer] [employer], viral testing remains the [...] stimulating device overlie the mid thoracic spine. [facility], Radiant ResultsInft User - 02/29/2020 6:27 PM [...] Disease Control (CDC) and recent statement ofthe [employer], viral testing remains the only specificmethod of diagnosis. Confirmation with the viral test is required, even ifradiologic findings are suggestive of COVID-[address]. Preliminary Report Dictated by Resident: Radu Boo MD., have reviewed this study and agree with theabovereport.[facility] DentonWendy [id number] 22:59:00 Test Item Value Reference Range Interpretation Comments TROPONIN I (test 0.071 ng/mL See_Comment H [Automated code = 1577393207) message] The system which generated this result [...] ? Lab Interpretation Abnormal (test code = 42199-4) [facility] (NA, K, CL, CO2, GLUCOSE, BUN, CREATININE, CA)2020-02-29 22:48:00 Test Item Value Reference Range Interpretation Comments NA (test code = 141 mmol/L 135-145 3739665932) K (test code = 3.2 mmol/L 3.5-5 L 0154383309) CL (test code = 104 mmol/L 98-108 5474805749) CO2 TOTAL (test code = 25 mmol/L 23-31 7153084118) AGAP (test code = 2-16 3249220364) BUN (test code = 12 mg/dL 7-23 4892192546) GLUCOSE (test code = 250 mg/dL 70-110 H 1794939257) CREATININE (test code = 1.02 mg/dL 0.6-1.25 8876698453) CALCIUM (test code = 8.9 mg/dL 8.6-10.6 7301499308) eGFR Calculation mL/min/1.73m2 (Non-) (test code = 3417496875) eGFR Calculation mL/min/1.73m2 () (test code = 2394073704) ALYSSA (test code = ALYSSA) Association of [...] tests). Lab Interpretation Abnormal (test code = 97111-0) [facility] WITH [id number] 22:41:00 Test Item Value Reference Range Interpretation Comments WBC (test code = See_Comment [Automated 5434-2) message] The sy stem which generated this result transmitted reference range : 4.20 - 10.70 10*3/?L. The reference range was not used to interpret this result as normal/abnormal . RBC (test code = See_Comment L [Automated 879-8) message] The sy stem which generated this [...] RDW-SD (test code = 46.6 fL 38.5-51.6 15083-6) RDW-CV (test code = 14.6 % 12.1-15.4 788-0) PLT (test code = See_Comment [Automated 777-3) message] The sy stem which generated this result transmitted reference range : 150 - 328 10*3/ ?L. The reference r corey was not used to interpret this result as normal/abnormal . MPV (test code = 9.7 fL 9.8-13 L 43143-4) NRBC/100 WBC (test See_Comment [Automat ed code = 7727032403) message] The system which generated this result transmitted reference range : 0.0 - 10.0 /100 WBCs. The refer ence range was not u sed to interpret th is result as normal/abnormal . NRBC x10^3 (test code <0.01 See_Comment [Auto mated = 4182455316) message] The s ystem which generated this result transmitted reference range : 10*3/?L. The reference range was not used to interpret this result as normal/abnormal . GRAN MAT (NEUT) % 68.6 % (test code = 770-8) IMM GRAN % (test code 0.30 % = 0853355821) LYMPH % (test code = 18.6 % 736-9) MONO % (test code = 10.1 % 5905-5) EOS % (test code = 1.8 % 713-8) BASO % (test code = 0.6 % 706-2) GRAN MAT x10^3(ANC) 4.29 10*3/uL 1.99-6.95 (test code = 0745811236) IMM GRAN x10^3 (test <0.03 0-0.06 code = 2078068839) LYMPH x10^3 (test code 1.16 10*3/uL 1.09-3.23 = 731-0) MONO x10^3 (test code 0.63 10*3/uL 0.36-1.02 = 742-7) EOS x10^3 (test code = 0.11 10*3/uL 0.06-0.53 711-2) BASO x10^3 (test code 0.04 10*3/uL 0.01-0.09 = 704-7) Lab Interpretation Abnormal (test code = 97278-2) [facility] DentonLacoic Acid Whole [id number] 22:38:00 Test Item Value Reference Range Interpretation Comments LACTIC ACID (test code = 1.88 mmol/L 0.3-2.6 1288722218) [facility]entonPOIN GLUCOSE (AUTOMATED)2020-01-17 18:18:00 Test Item Value Reference Range Interpretation Comments POCT GLU (test code = 8965911298) 290 mg/dL 70-110 H Lab Interpretation (test code = Abnormal 10350-0) [facility] DentonTROPONIN [id number] 18:01:00 Test Item Value Reference Range Interpretation Comments TROPONIN I (test 0.065 ng/mL See_Comment H [Automated code = 3185951058) message] The system which generated this result [...] ? Lab Interpretation Abnormal (test code = 60261-6) [facility] DentonaPTT2020-03-03 17:10:00 Test Item Value Reference Range Interpretation Comments APTT Patient (test See_Comment H [Automat ed code = 3173-2) message] The system which generated this result transmitted reference range : 23 - 38 Seconds . The reference range was not used to interpr et this result as normal/abnormal . ALYSSA (test code = ALYSSA) The [facility] patient population mean normal value for aPTT is 30 seconds. Lab Interpretation Abnormal (test code = 01190-9) [facility] 11:59:00 Test Item Value Reference Range Interpretation Comments POCT GLU (test code = 4885294041) 185 mg/dL 70-110 H Lab Interpretation (test code = Abnormal 52060-5) [facility] [id number] 11:23:00 Test Item Value Reference Range Interpretation Comments TROPONIN I (test 0.073 ng/mL See_Comment H [Automated code = 6846799198) message] The system which generated this result [...] ? Lab Interpretation Abnormal (test code = 70059-7) [facility] (NA, K, CL, CO2, GLUCOSE, BUN, CREATININE, CA)2020-01-17 11:16:00 Test Item Value Reference Range Interpretation Comments NA (test code = 136 mmol/L 135-145 0513701280) K (test code = 3.3 mmol/L 3.5-5 L 2657276984) CL (test code = 101 mmol/L 98-108 7693512677) CO2 TOTAL (test code = 26 mmol/L 23-31 7143059927) AGAP (test code = 2-16 0086825741) BUN (test code = 19 mg/dL 7-23 2228387093) GLUCOSE (test code = 227 mg/dL 70-110 H 1515983656) CREATININE (test code = 1.33 mg/dL 0.6-1.25 H 1854596341) CALCIUM (test code = 9.1 mg/dL 8.6-10.6 8537022513) eGFR Calculation mL/min/1.73m2 (Non-) (test code = 7634266135) eGFR Calculation mL/min/1.73m2 () (test code = 3379691687) ALYSSA (test code = ALYSSA) Association of [...] tests). Lab Interpretation Abnormal (test code = 48401-0) [facility] 11:00:00 Test Item Value Reference Range Interpretation Comments APTT Patient (test See_Comment H [Automat ed code = 3173-2) message] The system which generated this result transmitted reference range : 23 - 38 Seconds . The reference range was not used to interpr et this result as normal/abnormal . ALYSSA (test code = ALYSSA) The [facility] patient population mean normal value for aPTT is 30 seconds. Lab Interpretation Abnormal (test code = 57408-2) [facility] WITH [id number] 10:43:00 Test Item Value Reference Range Interpretation Comments WBC (test code = See_Comment [Automated message] 6690-2) The system [employer] generated this result transmitted ref erence range: 4.20 - 1 0.70 10*3/?L. The re ference range was not u sed to interpret this result as normal/abnor mal. RBC (test code = See_Comment [Automated message] 789-8) The system [employer] generated this result transmitted ref erence range: [...] RDW-SD (test code 41.5 fL 38.5-51.6 = 88838-6) RDW-CV (test code 12.8 % 12.1-15.4 = 788-0) PLT (test code = See_Comment [Automated message] 777-3) The system whic h generated this result transmitted ref erence range: 150 - 32 8 10*3/?L. The re ference range was not u sed to interpret this result as normal/abnor mal. MPV (test code = 10.7 fL 9.8-13 48014-5) NRBC/100 WBC (test See_Comment [Automat ed message] code = 0314967352) The syste m which generated this result transmitted ref erence range: 0.0 - 10 .0 /100 WBCs. The refer ence range was not u sed to interpret this result as normal/abnor mal. NRBC x10^3 (test <0.01 See_Comment [Automated message] code = 6563452430) The syste m which generated this result transmitted ref erence range: 10*3/?L. The reference range was not used to interpr et this result as normal/abnormal . GRAN MAT (NEUT) % 56.1 % (test code = 770-8) IMM GRAN % (test 0.30 % code = 2176491634) LYMPH % (test code 29.5 % = 736-9) MONO % (test code 9.9 % = 5905-5) EOS % (test code = 3.3 % 713-8) BASO % (test code 0.9 % = 706-2) GRAN MAT 3.73 10*3/uL 1.99-6.95 x10^3(ANC) (test code = 0717154956) IMM GRAN x10^3 <0.03 0-0.06 (test code = 2196550144) LYMPH x10^3 (test 1.96 10*3/uL 1.09-3.23 code = 731-0) MONO x10^3 (test 0.66 10*3/uL 0.36-1.02 code = 742-7) EOS x10^3 (test 0.22 10*3/uL 0.06-0.53 code = 711-2) BASO x10^3 (test 0.06 10*3/uL 0.01-0.09 code = 704-7) [facility] GLUCOSE (AUTOMATED)2020-01-17 01:49:00 Test Item Value Reference Range Interpretation Comments POCT GLU (test code = 8097489237) 305 mg/dL 70-110 H Lab Interpretation (test code = Abnormal 58972-0) [facility] GLUCOSE (AUTOMATED)2020-01-17 00:01:00 Test Item Value Reference Range Interpretation Comments POCT GLU (test code = 8315562134) 271 mg/dL 70-110 H Lab Interpretation (test code = Abnormal 53475-8) [facility] 22:23:00 Test Item Value Reference Range Interpretation Comments APTT Patient (test See_Comment H [Automat ed code = 3173-2) message] The system which generated this result transmitted reference range : 23 - 38 Seconds . The reference range was not used to interpr et this result as normal/abnormal . ALYSSA (test code = ALYSSA) The [facility] patient population mean normal value for aPTT is 30 seconds. Lab Interpretation Abnormal (test code = 24612-3) [facility] [id number] 21:22:00 Test Item Value Reference Range Interpretation Comments TROPONIN I (test 0.061 ng/mL See_Comment H [Automated code = 7901724887) message] The system which generated this result [...] ? Lab Interpretation Abnormal (test code = 19799-5) [facility]2020-01-16 17:37:00 Test Item Value Reference Range Interpretation Comments POCT GLU (test code = 7195874302) 271 mg/dL 70-110 H Lab Interpretation (test code = Abnormal 46747-2) [facility]2020-[facility]-02 12:47:00 Test Item Value Reference Range Interpretation Comments APTT Patient (test See_Comment HH [Automat ed code = 3173-2) message] The system which generated this result transmitted reference range : 23 - 38 Seconds . The reference range was not used to interpr et this result as normal/abnormal . ALYSSA (test code = ALYSSA) The [facility] patient population mean normal value for aPTT is 30 seconds. Lab Interpretation Abnormal (test code = 47799-0) [facility] [id number] 12:35:00 Test Item Value Reference Range Interpretation Comments TROPONIN I (test 0.074 ng/mL See_Comment H [Automated code = 7942548848) message] The system which generated this result [...] ? Lab Interpretation Abnormal (test code = 47612-7) [facility]entonLIPID PANEL (59756)(TOTAL CHOLESTEROL, TRIGLYCERIDES, HDL)2020-01-16 12:23:00 Test Item Value Reference Range Interpretation Comments CHOL (test code = 95 mg/dL 120-200 L 2406538398) HDL (test code = 44 mg/dL >40 3573220235) HDLC RATIO (test code = See_Comment [Au tomated message] 5036759835) The system [employer] generated this result transmitted ref erence range: <=5.0. T he reference range was not used to int erpret this result as normal/abnormal . TRIG (test code = 89 mg/dL 30-170 1408282196) LDL CHOL (test code = 33 mg/dL See_Comment [Auto mated message] 45262-7) The system [employer] generated this result transmitted ref erence range: <=160. T he reference range was not used to int erpret this result as normal/abnormal . VLDL (test code = 18 mg/dL 5-60 3803082249) Lab Interpretation (test Abnormal code = 72686-6) [facility]entonGlycosylated Hemoglobin (A1C)2020-01-16 09:03:00 Test Item Value Reference [...] Indicated Lab Interpretation Abnormal (test code = 47828-4) [facility]entonCritical [id number] 05:48:18Charanjit Heck MD ? ? 01/15/2020 11:48 PMCritical CarePerformed [...] review of old charts and examination of patientUnMethodist Hospital NortheastProthrombin Time (PT) / [id number] 05:28:00 Test Item Value Reference Range Interpretation [...] tions. Lab Interpretation (test Normal code = 36116-6) [facility]2020-[facility]-02 05:27:00 Test Item Value Reference Range Interpretation Comments APTT Patient (test See_Comment [Automat ed code = 3173-2) message] The system which generated this result transmitted reference range : 23 - 38 Seconds . The reference range was not used to interpr et this result as normal/abnormal . ALYSSA (test code = ALYSSA) The [facility] patient population mean normal value for aPTT is 30 seconds. Lab Interpretation Normal (test code = 08612-4) [facility]entonTroponin [id number] 05:11:00 Test Item Value Reference Range Interpretation Comments TROPONIN I (test 0.075 ng/mL See_Comment H [Automated code = 6570821817) message] The system which generated this result [...] ? Lab Interpretation Abnormal (test code = 02274-6) [facility]entonN-TERMINAL AET-[id number] 05:08:00 Test Item Value Reference Range Interpretation Comments NT-proBNP (test code 896 pg/mL See_Comment H [Autom ated = 4629975042) message] The system which generated this result transmitted reference range : <=450. The reference range was not used to interpret this result as normal/abnormal . ALYSSA (test code = ALYSSA) Biotin has been reported to cause a negative bias, interpret results relative to patient's use of biotin. Lab Interpretation Abnormal (test code = 67084-8) [facility] (NA, K, CL, CO2, GLUCOSE, BUN, CREATININE, CA)2020-01-16 04:59:00 Test Item Value Reference Range Interpretation Comments NA (test code = 136 mmol/L 135-145 1955026833) K (test code = 4.0 mmol/L 3.5-5 2578894463) CL (test code = 101 mmol/L 98-108 5808746383) CO2 TOTAL (test code = 27 mmol/L 23-31 3714313474) AGAP (test code = 2-16 0446211736) BUN (test code = 17 mg/dL 7-23 5603341751) GLUCOSE (test code = 445 mg/dL 70-110 H 1227639451) CREATININE (test code = 1.29 mg/dL 0.6-1.25 H 1398810526) CALCIUM (test code = 8.8 mg/dL 8.6-10.6 9093090819) eGFR Calculation mL/min/1.73m2 (Non-) (test code = 4872138327) eGFR Calculation mL/min/1.73m2 () (test code = 7804052845) ALYSSA (test code = ALYSSA) Association of [...] tests). Lab Interpretation Abnormal (test code = 38252-9) [facility]enton[facility]atic Function Panel (ALB, T.PRO, BILI T, BU/BC, ALT, AST, ALK PHOS)2020-01-16 04:59:00 Test Item Value Reference Range Interpretation Comments TOTAL BILI (test code = 7078936399) 1.3 mg/dL 0.1-1.1 H BILI UNCON (test code = 9624940931) 1.1 mg/dL 0.1-1.1 BILI CONJ (test code = 2173259040) 0.0 mg/dL 0-0.3 T PROTEIN (test code = 3064223645) 6.3 g/dL 6.3-8.2 ALBUMIN (test code = 9694888645) 3.9 g/dL 3.5-5 ALK PHOS (test code = 4291224815) 67 U/L 34-122 ALTv (test code = 1742-6) 15 U/L 5-50 AST(SGOT) (test code = 8345040317) 23 U/L 13-40 Lab Interpretation (test code = Abnormal 68961-4) [facility] 1 [id number] 04:54:13Impression: Moderate cardiomegaly without acute pulmonary process. RL: 460 AFC: [id number] Indication: Chest pain Comparison: None available Findings: Single AP view of the chest. The cardiopericardial silhouette ismoderately enlarged. The lungs are clear bilaterally. The visualized bonythorax is intact. A thoracic neurostimulator device is in place. [facility], Radiant Results Inft User - 01/15/2020 10:55 PM CSTIndication: Chest painComparison: None availableFindings: Single AP view of the chest. The cardiopericardial silhouette ismoderately enlarged. The lungs are clear bilaterally. The visualized bonythorax is intact. A thoracic neurostimulator device is in place.IMPRESSIONImpression:Moderate cardiomegaly without acute pulmonary process.RL: 460AFC: [id number] signed by Esperanza Rosado MD, PhD at 01/15/2020 10:54 PMUnG[facility] WITH [id number] 04:51:00 Test Item Value Reference Range Interpretation [...] RDW-SD (test code = 40.7 fL 38.5-51.6 60893-7) RDW-CV (test code = 12.8 % 12.1-15.4 788-0) PLT (test code = See_Comment L [Automated 777-3) message] The sy stem which generated this result transmitted reference range : 150 - 328 10*3/ ?L. The reference r corey was not used to interpret this result as normal/abnormal . MPV (test code = 10.6 fL 9.8-13 97243-5) IPF % (test code = 2.8 % 1.2-10.7 Platelet count 7184050770) measured by fluorescence method. NRBC/100 WBC (test See_Comment [Automat ed code = 8412823525) message] The system which generated this result transmitted reference range : 0.0 - 10.0 /100 WBCs. The refer ence range was not u sed to interpret th is result as normal/abnormal . NRBC x10^3 (test code <0.01 See_Comment [Auto mated = 7450295811) message] The s ystem which generated this result transmitted reference range : 10*3/?L. The reference range was not used to interpret this result as normal/abnormal . GRAN MAT (NEUT) % 56.0 % (test code = 770-8) IMM GRAN % (test code 0.20 % = 8551328606) LYMPH % (test code = 30.5 % 736-9) MONO % (test code = 9.6 % 5905-5) EOS % (test code = 2.8 % 713-8) BASO % (test code = 0.9 % 706-2) GRAN MAT x10^3(ANC) 2.98 10*3/uL 1.99-6.95 (test code = 5911140040) IMM GRAN x10^3 (test <0.03 0-0.06 code = 5096710730) LYMPH x10^3 (test code 1.62 10*3/uL 1.09-3.23 = 731-0) MONO x10^3 (test code 0.51 10*3/uL 0.36-1.02 = 742-7) EOS x10^3 (test code = 0.15 10*3/uL 0.06-0.53 711-2) BASO x10^3 (test code 0.05 10*3/uL 0.01-0.09 = 704-7) Lab Interpretation Abnormal (test code = 13649-1) [facility]"
[2021-12-31] MEDS ORDERED: NA CHLORIDE 0.9% 1,000 ML ONE (22:16)
[2021-12-31 22:20] LABS: Absolute Lymphocytes (CBC) 1.3 K/uL (0.7-4.9); Hematocrit 31.7 % (39.6-49.0); Lymphocytes % 20.3 % (15.3-44.8); MPV 7.9 fL (7.6-11.3); RBC Red Blood Cell Count 3.38 M/uL (4.33-5.43)
[2021-12-31 22:20] LABS: Protime INR 0.98
[2021-12-31 22:40] LABS: Albumin 3.1 g/dL (3.4-5.0); Bilirubin Direct 0.2 mg/dL (0-0.2); Bilirubin Total 0.7 mg/dL (0.2-1.0); Potassium 3.8 mmol/L (3.5-5.1); Protein, Total 6.9 g/dL (6.4-8.2); Troponin High Sensitivity 44.6 pg/mL (<58.9)
[2021-12-31 23:39] LABS: Urine Blood Negative (Negative); Urine Glucose 2+ (Negative); Urine Protein Negative (Negative); Urine Specific Gravity 1.015 (1.005-1.030); Urine pH 6.5 (5.0-7.0)
[2021-12-31] MEDS ORDERED: MORPHINE 2 MG/ML SYR ONE (23:41)
[2021-12-31] MEDS ORDERED: ONDANSETRON 4 MG/2 ML VIAL ONE (23:41)
--- NOTE | 2022-01-01 00:15 | EDPHYS ---
Physician Documentation [facility] Name: Demetrius Sarmiento Age: 81 yrs Sex: Male : 1940 Arrival Date: 12/31/2021 Time: 21:34 Bed 6 Private MD: ED Physician Michael Ortega HPI: 12/31 21:52 This 81 yrs old Male presents to ER via EMS with complaints of upper and tadeo lower back pain. 21:52 The patient presents with pain and decreased range of motion. The symptoms are located tadeo in the thoracic area and lumbar area. Onset: The symptoms/episode began/occurred 2 day(s) ago. The pain does not radiate. Associated signs and symptoms: The patient has no apparent associated signs or symptoms. The problem was sustained from unknown cause. Modifying factors: The patient symptoms are alleviated by nothing, the patient symptoms are aggravated by movement. Severity of symptoms: At their worst the symptoms were moderate, in the emergency department the symptoms are unchanged. The patient has not experienced similar symptoms in the past. Historical: - Allergies: 21:36 No Known Allergies; as6 - Home Meds: 21:36 donepezil 5 mg Oral tab 1 tab nightly [Active]; Januvia 50 mg Oral tab 1 tab once daily as6 [Active]; isosorbide mononitrate 120 mg Oral Tb24 1 tab once daily [Active]; clopidogrel 75 mg oral tab 1 tab once daily [Active]; furosemide 20 mg Oral tab 1 tab once daily [Active]; potassium chloride 10 mEq Oral TbER 1 tab once daily [Active]; atorvastatin 40 mg Oral tab 1 tab nightly [Active]; aspirin 81 mg Oral TbEC 1 tab once daily [Active]; - PMHx: 21:36 CAD; cardiac arrest; CHF; chronic kidney disease; Chronic pain; Diabetes - IDDM; High as6 Cholesterol; Hypertension; Myocardial infarction; - Immunization history:: Client reports receiving the 2nd dose of the Covid vaccine. - Social history:: Smoking status: Patient/guardian denies using tobacco, but has a distant history of tobacco abuse. - Family history:: not pertinent. ROS: 21:52 Constitutional: Negative for fever, chills, and weight loss, Eyes: Negative for injury, tadeo pain, redness, and discharge, ENT: Negative for injury, pain, and discharge, Neck: Negative for injury, pain, and swelling, Cardiovascular: Negative for chest pain, palpitations, and edema, Respiratory: Negative for shortness of breath, cough, wheezing, and pleuritic chest pain, Abdomen/GI: Negative for abdominal pain, nausea, vomiting, diarrhea, and constipation, : Negative for injury, bleeding, discharge, and swelling, MS/Extremity: Negative for injury and deformity, Skin: Negative for injury, rash, and discoloration, Neuro: Negative for headache, weakness, numbness, tingling, and seizure. 21:52 Back: Positive for pain at rest, pain with movement, of the thoracic area and lumbar area. Exam: 21:52 Constitutional: This is a well developed, well nourished patient who is awake, alert, tadeo and in no acute distress. Head/Face: Normocephalic, atraumatic. Eyes: Pupils equal round and reactive to light, extra-ocular motions intact. Lids and lashes normal. Conjunctiva and sclera are non-icteric and not injected. Cornea within normal limits. Periorbital areas with no swelling, redness, or edema. ENT: Nares patent. No nasal discharge, no septal abnormalities noted. Tympanic membranes are normal and external auditory canals are clear. Oropharynx with no redness, swelling, or masses, exudates, or evidence of obstruction, uvula midline. Mucous membranes moist. Neck: Trachea midline, no thyromegaly or masses palpated, and no cervical lymphadenopathy. Supple, full range of motion without nuchal rigidity, or vertebral point tenderness. No Meningismus. Chest/axilla: Normal chest wall appearance and motion. Nontender with no deformity. No lesions are appreciated. Cardiovascular: Regular rate and rhythm with a normal S1 and S2. No gallops, murmurs, or rubs. Normal PMI, no JVD. No pulse deficits. Respiratory: Lungs have equal breath sounds bilaterally, clear to auscultation and percussion. No rales, rhonchi or wheezes noted. No increased work of breathing, no retractions or nasal flaring. Abdomen/GI: Soft, non-tender, with normal bowel sounds. No distension or tympany. No guarding or rebound. No evidence of tenderness throughout. Male : Normal genitalia with no discharge or lesions. Skin: Warm, dry with normal turgor. Normal color with no rashes, no lesions, and no evidence of cellulitis. MS/ Extremity: Pulses equal, no cyanosis. Neurovascular intact. Full, normal range of motion. Neuro: Awake and alert, GCS 15, oriented to person, place, time, and situation. Cranial nerves II-XII grossly intact. Motor strength 5/5 in all extremities. Sensory grossly intact. Cerebellar exam normal. Normal gait. Psych: Awake, alert, with orientation to person, place and time. Behavior, mood, and affect are within normal limits. 21:52 Back: pain, that is mild, ROM is decreased, normal spinal alignment noted, CVA tenderness, is absent. 23:51 ECG was reviewed by the Attending Physician. [facility] Vital Signs: 21:34 BP 130 / 66; Pulse 79; Resp 24 S; Temp 98.3(O); Pulse Ox 97% on R/A; Weight 79.38 kg as6 (R); Height 5 ft. 7 in. (170.18 cm) (R); Pain 7/10; 22:00 BP 125 / 61; Pulse 71; Resp 15 S; Pulse Ox 99% on NC; lg3 01/01 01:30 BP 142 / 61; Pulse 65; Resp 18; Pulse Ox 96% on R/A; mk 02:30 BP 135 / 71; Pulse 64; Resp 16; Pulse Ox 100% on R/A; mk 12/31 21:34 Body Mass Index 27.41 (79.38 kg, 170.18 cm) as6 Ana Coma Score: 01:30 Eye Response: spontaneous(4). Verbal Response: oriented(5). Motor Response: obeys mk commands(6). Total: 15. 02:30 Eye Response: spontaneous(4). Verbal Response: oriented(5). Motor Response: obeys mk commands(6). Total: 15. MDM: 12/31 21:44 Patient medically screened. [facility] 21:55 Data reviewed: vital signs, nurses notes, EMS record, lab test result(s), EKG, [facility] radiologic studies, CT scan, plain films. Data interpreted: refrigeration tech: rate is 79 beats/min, rhythm is regular, Pulse oximetry: on room air is 97 %. Test interpretation: by ED physician or midlevel provider: ECG, plain radiologic studies. Counseling: I had a detailed discussion with the patient and/or guardian regarding: the historical points, exam findings, and any diagnostic results supporting the discharge/admit diagnosis, lab results, radiology results, the need for further work-up and treatment in the hospital. 01/01 00:15 ED course: dw dr sanchez , ct aorta, dc home if neative. not to admit. [facility] 12/31 21:51 Order name: Basic Metabolic Panel; Complete Time: 22:41 [facility] 12/31 21:51 Order name: CBC with Diff; Complete Time: 22:40 [facility] 12/31 21:51 Order name: LFT's; Complete Time: 22:41 [facility] 12/31 21:51 Order name: Magnesium; Complete Time: 22:41 [facility] 12/31 21:51 Order name: NT PRO-BNP; Complete Time: 22:41 [facility] 12/31 21:51 Order name: PT-INR; Complete Time: 22:41 [facility] 12/31 21:51 Order name: Troponin HS; Complete Time: 22:41 [facility] 12/31 21:51 Order name: XRAY Chest (1 view) [facility] 12/31 21:51 Order name: Lipase; Complete Time: 22:41 [facility] 12/31 21:51 Order name: SARS-COV-2 RT PCR (Document "Date of Onset" if Symptomatic); Complete Time: [facility] 23:18 12/31 21:51 Order name: CT Aorta for Dissection [facility] 12/31 23:39 Order name: Urine Dipstick-Ancillary; Complete Time: 23:51 EDMS 12/31 21:51 Order name: EKG; Complete Time: 21:52 [facility] 12/31 21:51 Order name: Cardiac monitoring; Complete Time: 22:01 [facility] 12/31 21:51 Order name: EKG - Nurse/Tech; Complete Time: 22:30 [facility] 12/31 21:51 Order name: IV Saline Lock; Complete Time: 22:09 [facility] 12/31 21:51 Order name: Labs collected and sent; Complete Time: 22:09 [facility] 12/31 21:51 Order name: O2 Per Protocol; Complete Time: 22:01 [facility] 12/31 21:51 Order name: O2 Sat Monitoring; Complete Time: 22:00 [facility] 12/31 23:35 Order name: Urine Dipstick-Ancillary (obtain specimen); Complete Time: 23:40 cs9 EC/15 23:51 Rate is 63 beats/min. Rhythm is regular. QRS [place] is Normal. DE interval is normal. QRS tadeo interval is normal. QT interval is prolonged at 462 msec. No Q waves. T waves are Inverted in leads I, II, V4, V5, V6. Clinical impression: Abnormal EKG without significant change and No evidence of ischemia. Administered Medications: 22:13 Drug: NS 0.9% 500 ml Route: IV; Rate: bolus; Site: right forearm; lg3 23:43 Follow up: Response: No adverse reaction; IV Status: Completed infusion; IV Intake: lg3 500ml 22:18 Drug: NS 0.9% 1000 ml Route: IV; Rate: 125 ml/hr; Site: right forearm; lg3 01/01 02:42 Follow up: Response: No adverse reaction; IV Status: Order to discontinue infusion; IV mk Intake: 460ml 12/31 23:40 Drug: morphine 2 mg Route: IVP; Site: right forearm; lg3 23:40 Follow up: Response: No adverse reaction; RASS: Alert and Calm (0) lg3 23:40 Drug: Zofran (Ondansetron) 4 mg Route: IVP; Site: right forearm; lg3 23:40 Follow up: Response: No adverse reaction lg3 01/01 01:56 Drug: Mucomyst - Acetylcysteine 600 mg Route: PO; mk 02:40 Follow up: Response: No adverse reaction mk Disposition Summary: 01/01/22 00:14 Discharge Ordered Location: Home tadeo Problem: new tadeo Symptoms: have improved tadeo Condition: Stable tadeo Diagnosis - Low back pain tadeo - Chronic pain, not elsewhere classified tadeo - Unspecified kidney failure - chronic renal failure tadeo - Cardiomegaly tadeo Followup: tadeo - With: Private Physician - When: 2 - 3 days - Reason: Recheck today's complaints, Continuance of care, Re-evaluation by your physician Followup: tadeo - With: - When: 2 - 3 days - Reason: Recheck today's complaints, Continuance of care, Re-evaluation by your physician Discharge Instructions: - Discharge Summary Sheet tadeo - Chronic Back Pain tadeo - Musculoskeletal Pain tadeo - Chronic Back Pain, [id number] tadeo - Chronic Kidney Disease, Adult, [id number] tadeo - Coronary Artery Disease, Male tadeo Forms: - Medication Reconciliation Form tadeo - Thank You Letter tadeo - Antibiotic Education tadeo - Prescription Opioid Use tadeo Prescriptions: - Cyclobenzaprine 5 mg Oral Tablet - take 1 tablet by ORAL route 3 times per day As needed; 15 tablet; Refills: 0, [facility] Product Selection Permitted - Tylenol-Codeine #3 300 mg-30 mg Oral - take 2 tablet by ORAL route every 6 hours; 20 tablet; Refills: 0, Product tadeo Selection Permitted Signatures: Dispatcher [employer] EDMS Michael Ortega MD MD cha Attema, Dayo, CORRECTIONAL OFFICER CHIEF-C CORRECTIONAL OFFICER CHIEF-Cla1 Lexi Herring RN RN greta3 Brianna Mendes [facility] Sg Mann RN RN as6 Evelia Quintanilla RN RN mk Corrections: (The following items were deleted from the chart) 12/31 21:40 21:36 Home Meds: donepezil 5 mg oral tab 1 tab once daily; as6 as6 23:35 23:26 Urine Dipstick-Ancillary ordered. EDMS EDMS
--- NOTE | 2022-01-01 00:15 | ER ---
Nurse's Notes [facility] Name: Demetrius Sarmiento Age: 81 yrs Sex: Male : 1940 Arrival Date: 12/31/2021 Time: 21:34 Bed 6 Private MD: Diagnosis: Low back pain;Chronic pain, not elsewhere classified;Unspecified kidney failure-chronic renal failure;Cardiomegaly Presentation: 12/31 21:34 Chief complaint: EMS states: called out for chronic back pain worsening today. as6 Coronavirus screen: At this time, the client does not indicate any symptoms associated with coronavirus-19. Ebola Screen: No symptoms or risks identified at this time. Initial Sepsis Screen: Does the patient meet any 2 criteria? No. Patient's initial sepsis screen is negative. Does the patient have a suspected source of infection? No. Patient's initial sepsis screen is negative. Risk Assessment: Do you want to hurt yourself or someone else? Patient reports no desire to harm self or others. Onset of symptoms was December 31, 2021. Care prior to arrival: Glucose check: 329. 21:34 Method Of Arrival: [facility] as6 21:34 Acuity: LANCE 3 as6 Triage Assessment: 21:40 General: Appears in no apparent distress. Behavior is calm, cooperative. Pain: as6 Complains of pain in back. Historical: - Allergies: 21:36 No Known Allergies; as6 - Home Meds: 21:36 donepezil 5 mg Oral tab 1 tab nightly [Active]; Januvia 50 mg Oral tab 1 tab once daily as6 [Active]; isosorbide mononitrate 120 mg Oral Tb24 1 tab once daily [Active]; clopidogrel 75 mg oral tab 1 tab once daily [Active]; furosemide 20 mg Oral tab 1 tab once daily [Active]; potassium chloride 10 mEq Oral TbER 1 tab once daily [Active]; atorvastatin 40 mg Oral tab 1 tab nightly [Active]; aspirin 81 mg Oral TbEC 1 tab once daily [Active]; - PMHx: 21:36 CAD; cardiac arrest; CHF; chronic kidney disease; Chronic pain; Diabetes - IDDM; High as6 Cholesterol; Hypertension; Myocardial infarction; - Immunization history:: Client reports receiving the 2nd dose of the Covid vaccine. - Social history:: Smoking status: Patient/guardian denies using tobacco, but has a distant history of tobacco abuse. - Family history:: not pertinent. Screenin:41 Abuse screen: Denies threats or abuse. Denies injuries from another. Nutritional as6 screening: No deficits noted. Tuberculosis screening: No symptoms or risk factors identified. Fall Risk None identified. Assessment: 21:45 General: Appears uncomfortable, Behavior is calm, cooperative. Pain: Complains of pain as6 in back. Neuro: Level of Consciousness is awake, alert, obeys commands, Oriented to person, place, time, situation. Cardiovascular: Rhythm is atrial fibrillation. Cardiovascular: Denies chest pain. Respiratory: Denies shortness of breath. 01/01 01:30 General: Appears uncomfortable, Behavior is cooperative. Pain: Complains of pain in mk back Pain currently is 6 out of 10 on a pain scale. Quality of pain is described as. Neuro: Level of Consciousness is awake, alert, obeys commands, Oriented to person, place, time, situation, Certified Activities Director are equal bilaterally Moves all extremities. Gait is steady. Cardiovascular: Heart tones S1 S2 Capillary refill < 3 seconds in bilateral fingers toes Clubbing of nail beds is absent JVD is absent Patient's skin is warm and dry. Rhythm is atrial fibrillation. Respiratory: Airway is patent Trachea midline Breath sounds are clear. GI: No signs and/or symptoms were reported involving the gastrointestinal system. : Urine is clear. Derm: Skin is intact, is healthy with good turgor, Skin is dry, Skin temperature is warm. Musculoskeletal: Circulation, motion, and sensation intact. Capillary refill < 3 seconds, in bilateral fingers. toes. Range of motion: intact in all extremities, walked 10 feet NAD. 02:30 Reassessment: No changes from previously documented assessment. Patient and/or family updated on plan of care and expected duration. Pain level reassessed. Patient is alert, oriented x 3, equal unlabored respirations, skin warm/dry/pink. Vital Signs: 12/31 21:34 BP 130 / 66; Pulse 79; Resp 24 S; Temp 98.3(O); Pulse Ox 97% on R/A; Weight 79.38 kg as6 (R); Height 5 ft. 7 in. (170.18 cm) (R); Pain 7/10; 22:00 BP 125 / 61; Pulse 71; Resp 15 S; Pulse Ox 99% on NC; lg3 01/01 01:30 BP 142 / 61; Pulse 65; Resp 18; Pulse Ox 96% on R/A; mk 02:30 BP 135 / 71; Pulse 64; Resp 16; Pulse Ox 100% on R/A; mk 12/31 21:34 Body Mass Index 27.41 (79.38 kg, 170.18 cm) as6 Ana Coma Score: 01:30 Eye Response: spontaneous(4). Verbal Response: oriented(5). Motor Response: obeys mk commands(6). Total: 15. 02:30 Eye Response: spontaneous(4). Verbal Response: oriented(5). Motor Response: obeys mk commands(6). Total: 15. ED Course: 12/31 21:34 Patient arrived in ED. as6 21:36 Triage completed. as6 21:41 Arm band placed on left wrist. as6 21:41 Bed in low position. Call light in reach. Side rails up X2. monitor car operator on. Pulse as6 ox on. NIBP on. Warm blanket given. 21:42 Sg Mann, HERBIE is Primary Nurse. as6 21:44 Michael Ortega MD is Attending Physician. tadeo 22:09 SARS-COV-2 RT PCR (Document "Date of Onset" if Symptomatic) Sent. lg3 22:10 Inserted saline lock: 20 gauge in right forearm, using aseptic technique. Blood lg3 collected. 22:21 XRAY Chest (1 view) In Process Unspecified. EDMS 23:07 CT Aorta for Dissection In Process Unspecified. EDMS 01/01 00:14 Jose Costello MD is Referral Physician. tadeo 01:08 this RN assigned to area where this pt is bedded at this time. mk 02:01 this RN notified charge entry specialist that pt states he cannot go home as 'its too late I have to mk stay here tonight', cab voucher given, pt ambulated to make sure safe to dc, pt stable on ambulation. 02:41 No provider procedures requiring assistance completed. IV discontinued, intact, mk bleeding controlled, No redness/swelling at site. Administered Medications: 12/31 22:13 Drug: NS 0.9% 500 ml Route: IV; Rate: bolus; Site: right forearm; lg3 23:43 Follow up: Response: No adverse reaction; IV Status: Completed infusion; IV Intake: lg3 500ml 22:18 Drug: NS 0.9% 1000 ml Route: IV; Rate: 125 ml/hr; Site: right forearm; 3 01/01 02:42 Follow up: Response: No adverse reaction; IV Status: Order to discontinue infusion; IV mk Intake: 460ml 12/31 23:40 Drug: morphine 2 mg Route: IVP; Site: right forearm; 3 23:40 Follow up: Response: No adverse reaction; RASS: Alert and Calm (0) [facility] 23:40 Drug: Zofran (Ondansetron) 4 mg Route: IVP; Site: right forearm; 3 23:40 Follow up: Response: No adverse reaction [facility] 01/01 01:56 Drug: Mucomyst - Acetylcysteine 600 mg Route: PO; mk 02:40 Follow up: Response: No adverse reaction mk Intake: 12/31 23:43 IV: 500ml; Total: 500ml. [facility] 01/01 02:42 IV: 460ml; Total: 960ml. Outcome: 00:14 Discharge ordered by MD. piedra 02:41 Discharged to home via taxi mk 02:41 Condition: stable 02:41 Discharge instructions given to patient, Instructed on discharge instructions, follow up and referral plans. medication usage, Demonstrated understanding of instructions, follow-up care, medications, Prescriptions given X 2. 02:42 Patient left the ED. Signatures: Dispatcher [employer] EDMichael Jeffrey MD MD cha Gibson, Lacie, RN RN greta3 Sg Mann RN RN as6 Evelia Quintanilla RN RN mk Corrections: (The following items were deleted from the chart) 12/31 21:40 21:36 Home Meds: donepezil 5 mg oral tab 1 tab once daily; as6 as6 01/01 02:41 02:37 this RN assigned to area where this pt is bedded at this time samuel baker
[2022-01-01] MEDS ORDERED: ACETYLCYST 6,000 MG/30 ML VIAL ONE (01:51)
[2022-01-01 03:12] VITALS: TEMP 98.3
[2022-01-01 03:15] VITALS: BP 135/71; O2SAT 100
--- NOTE | 2022-01-01 07:51 | RAD REPORT ---
EXAM DESCRIPTION: [place] Single View12/31/2021 10:20 pm CLINICAL HISTORY: Chest pain COMPARISON: December 18, 2021 FINDINGS: The lungs appear clear of acute infiltrate. The heart is moderately enlarged IMPRESSION: No acute abnormalities displayed
--- NOTE | 2022-01-01 10:07 | RAD REPORT ---
EXAM DESCRIPTION: CT - Angio Aorta For Dissection - 01/01/2022 6:43 am CLINICAL HISTORY: 81 years, Male, DISSECTION COMPARISON: 12/05/2021. TECHNIQUE: Multiple transaxial tomograms from the thoracic and abdominal aorta from the lung apex to the ischial tuberosities performed after the administration of large bolus of IV contrast for comple te opacification of the thoracic, abdominal aorta and iliac arteries utilizing 3 mm slice thickness a t 3 mm interval obstruction. 2-D and 3-D multiplanar reformats, volume rendering technique and maximum intensity projection images were generated and reviewed. This exam was performed according to our departmental dose-optimization protocol, which includes auto mated exposure control, adjustment of the mA and/or kV according to patient size and/or use of iterat stefany reconstruction technique. FINDINGS: Thoracic aorta: The thoracic aorta demonstrate no evidence for significant dissection and/or aneurysm allowing for th e motion artifact along the aortic root/ascending thoracic aorta. There is minimal atheromatous plaqu e formation at the aortic arch and descending portion. The ascending thoracic aorta measured 3.7 x 2.7 cm on image 39, the aortic arch measured 2.8 cm on im age 24, the descending portion measured 2.7 x 2.5 cm. There is normal branching pattern of the great vessels. Minimal atheromatous plaque formation with no focal areas of significant stenosis/or occlusion along the proximal vessels. Abdominal aorta: The abdominal aorta demonstrate minimal atheromatous plaque formation. No evidence for significant st enosis. The proximal aspect measured 2.3 x 2.4 cm on image 83, the midportion measured 1.8 x 2 cm on axial image 101, the infrarenal portion measured 2.2 x 2.1 cm on image 114. The right common iliac artery measures 0.8 cm, the left common iliac artery measures 0.9 cm on image 137. At the celiac trunk, superior mesenteric artery and inferior mesenteric artery demonstrate to be manuel nt. No focal areas of significant stenosis. There is a single left renal artery with no focal areas of significant stenosis. Chest: The lung parenchyma demonstrate the presence of subpleural interlobular septal thickening sugg esting interstitial lung disease UIP/IPF pattern could be of consideration. No significant pulmonary nodules and/or masses. The trachea mainstem bronchus demonstrate to be unremarkable. There is no pleural/or pericardial effu sions. The heart is normal in size. There are coronary artery calcifications. There is no significant medias tinal and/or hilar lymphadenopathy. The axillary regions demonstrate to be clear. The bone windows de monstrate no significant skeletal lesions. There is epidural nerve stimulator within the mid/lower th oracic spine. Abdomen and pelvis: The liver demonstrate decreased attenuation suggesting mild fatty infiltration. T here is a enhancing lesion subcapsular aspect anterior right hepatic lobe close possibility to the ga llbladder measuring approximately 1.9 cm on image 83 perhaps corresponding to a hemangioma. The gallb ladder is partially distended with no gross amount is. The, spleen, adrenal glands, pancreas demonstr ate to be unremarkable. There is a status post right nephrectomy. The left kidney demonstrate to be unremarkable. No evidence for nephrolithiasis and/or hydronephrosis. Small anterior midpole cyst measuring 1.1 cm on image 106 . Grossly the unopacified stomach, small bowel and large bowel demonstrate to be within normal limits. There is mild fecal stasis. There is diverticulosis within the sigmoid colon. The appendix is unremar kable. The urinary bladder demonstrate to unremarkable. Right inguinal region demonstrated the presence of a reservoir for penile implant. There is no retroperitoneal lymphadenopathy. There is no evidence for ascites. The bone windows demonstrate posterior transpedicular screw fixation device at L3-L5 with laminectomy at L4/L5. Degenerative disc disease at T12/L1 and L5/S1. IMPRESSION: No evidence for significant dissection and/or aneurysm allowing for the motion artifact along the aortic root/ascending thoracic aorta. Minimal atheromatous plaque formation of the thoracic and abdominal aorta, with no evidence for signi ficant aneurysm and/or stenosis. Subpleural interlobular septal thickening suggesting interstitial lung disease UIP/IPF. Status post right nephrectomy. Probable hemangioma subcapsular anterior aspect right hepatic lobe. Mild fecal stasis. Sigmoid diverticulosis without CT evidence for acute diverticulitis. Posterior transpedicular screw fixation device at L3-L5 with laminectomy at L4/L5. Degenerative disc disease at T12/L1 and L5/S1. Electronically signed by: Ashu Mayfield MD 12/31/2021 11:53 PM [facility] Due to temporary technical issues with the PACS/Fluency reporting system, reports are being signed by the in house radiologist without review as a courtesy to ensure prompt reporting. The interpreting r adiologist is fully responsible for the content of the report.
--- NOTE | 2022-01-01 11:14 | EKG ---
Test Date: 2021-12-31 Test Time: 22:24:19 Order Entry: MAEVET MEASUREMENT RESULTS: Intervals: Rate: 63 UT: 172 QRSD: 116 QT: 462 QTc: 472 [place]: P: 41 UT: 172 QRS: -62 T: 175 INTERPRETIVE STATEMENTS: Sinus rhythm with occasional premature ventricular complexes Left axis deviation T wave abnormality, consider inferior ischemia T wave abnormality, consider anterolateral ischemia Prolonged QT Abnormal ECG Compared to ECG 12/19/2021 15:58:54 Ventricular premature complex(es) now present Left bundle-branch block no longer present Left ventricular hypertrophy no longer present T-wave abnormality still present Possible ischemia still present Electronically Signed On 01-01-22 11:13:41 PRODUCT ACCOUNTANT by Gibson Davidson
== END 2022-01-01 02:42 | disposition home or self-care (01) ==
LOC: ER 21:33
DX: M54.50 Low back pain, unspecified (principal); G89.29 Other chronic pain; E11.22 Type 2 diabetes mellitus with diabetic chronic kidney disease; N18.9 Chronic kidney disease, unspecified; I10 Essential (primary) hypertension; I51.7 Cardiomegaly; I50.9 Heart failure, unspecified; Z20.822 Contact with and (suspected) exposure to COVID-19; Z79.82 Long term (current) use of aspirin
CPT/HCPCS: 93005; 85025; 80048; 36415; 83735; 85610; 80076; 81003; 84484; 83690; 83880; 71275; 74175; 71045; U0003; Q9967; J2270; J7030; J2405

== ENCOUNTER 2022-01-07 02:45 | Emergency (ER) | payer OTHER ==
--- OUTSIDE RECORDS SUMMARY | 2022-01-07 02:58 | XMS REPORT | Continuity of Care Document ---
:1940 Author Organization [facility] t Address [address] [place] [address] Care Team Providers Name Role Phone Andres [...] Type Policy Number Effective Date Expiration Date [facility] [id number] 2019 DUAL COMPLETE HMO 00:00:00 MEDICAID OF [place] [id number] 2018 00:00:00 Problems Condition Condition Condition Status Onset Resolution Last Treating Co mments Source Name Details Category Date Date Treatment Clinician Date Unstable Unstable Disease Active Unive rs angina angina 5-07 ity of 00:00: [place] [facility] ALBA (acute ALBA (acute Disease Active 2020- U nivers kidney kidney 4-21 ity of injury) injury) 00:00: [place] [facility] Chest pain Chest pain Disease Active 2019- U nivers 4-21 ity of 00:00: [place] [facility] Chest pain Chest pain Disease Active 2020- U 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 4-15 it y of 00:00: [place] [facility] 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 00:00: [place] and and 00 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 2018-11 U nivers lobe lobe 1-06 ity of pneumonia pneumonia 00:00: [facility] 00 Medical Branch PNA PNA Disease Active 2018-11 Univers (pneumonia (pneumonia 0-25 it y of ) ) 00:00: [place] [facility] Acute on Acute on Disease Active 2018-11 Unive rs chronic chronic 0-25 ity of combined combined 00:00: [place] systolic systolic 00 Medica l and and Branch 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 Dyspnea Dyspnea Disease Active 2018-11 Univers 0-23 ity of 00:00: [place] [facility] CHF CHF Disease Active 2019 Univers exacerbati exacerbati 2-17 it y of on on 00:00: [place] [facility] Essential Essential Disease Active Uni vers hypertensi hypertensi 2-17 it y of on on 00:00: [place] [facility] 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 00:00: [place] without without 00 Medical complicati complicati Br anch on, on, without without long-term long-term current current use of use of insulin insulin CHF CHF Disease Active Univers exacerbati exacerbati 2-17 it y of on on 00:00: [place] [facility] Acute on Acute on Disease [...] 00:00: [place] involving involving 00 Medi birdie [place] 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 00:00: [place] disease disease 00 Medical Branch Coronary Coronary Disease Active Unive rs artery artery 1- ity of disease disease 00:00: [place] involving involving 00 Medi birdie [place] 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 [...] Allergie - Clear s 00:00: [place] 00 [facility] NO KNOWN Drug Active Univers ALLERGIE Class ity of S [facility] Social History Social Habit Start Date Stop Date Quantity Comments Source Exposure to [facility] University of SARS-CoV-2 (event) [facility] History of tobacco User of Univer sity of use smokeless [facility] tobacco [place] Alcohol intake 2021-10-31 2021-10-31 Current University of 00:00:00 00:00:00 non-drinker of [facility] alcohol Branch (finding) Cigarettes smoked 2018-12-11 2018-12-11 Univers ity of current (pack per 00:00:00 00:00:00 [facility] ) - Reported Branch Cigarette 2018-12-11 2018-12-11 University of pack-years 00:00:00 00:00:00 [facility] Tobacco use and 2018-12-11 2018-12-11 Former user Universi ty of exposure 00:00:00 00:00:00 [facility] Sex Ass[birth year] At [birth year] Universit y of 00:00:00 00:00:00 [facility] Smoking Status Start Date Stop Date Source Former smoker 2018-12-11 00:00:00 2018-12-11 00:00:00 [facility] Medications Ordered Filled Start Stop Current Ordering Indication Dosage Frequency Signature Comments Components Source Medication Medication Date Date Medication? Clinician (SIG) Name Name aspirin 81 2020-11- Yes [id number] 81mg Take 1 Univers mg chewable -12-04 tablet by it y of tablet 00:00: 05:59 mouth [place] 00 :00 daily for Medical 30 days. Branch clopidogreL 2020-11- Yes [id number] 75mg Take 1 Univers 75 mg -12-04 tablet by ity of tablet 00:00: 05:59 mouth [place] 00 :00 daily for Medical 30 days. Branch furosemide 2020-11- Yes [id number] 20mg Take 1 Univers 20 mg -12-04 tablet by ity of tablet 00:00: 05:59 mouth [place] 00 :00 daily for Medical 30 days. Branch aspirin 81 2020-11- Yes [id number] 81mg Take 1 Univers mg chewable 2-12-04 tablet by it y of tablet 00:00: 05:59 mouth [place] 00 :00 daily for Medical 30 days. Branch clopidogreL 2020-11- Yes [id number] 75mg Take 1 Univers 75 mg 2-12-04 tablet by ity of tablet 00:00: 05:59 mouth [place] 00 :00 daily for Medical 30 days. Branch furosemide 2020-11- Yes [id number] 20mg Take 1 Univers 20 mg 01-04 tablet by ity of tablet 00:00: 05:59 mouth [place] 00 :00 daily for Medical 30 days. Branch aspirin 81 2020-11- Yes [id number] 81mg Take 1 Univers mg chewable 01-04 tablet by it y of tablet 00:00: 05:59 mouth [place] 00 :00 daily for Medical 30 days. Branch clopidogreL 2020-11- Yes [id number] 75mg Take 1 Univers 75 mg 01-04 tablet by ity of tablet 00:00: 05:59 mouth [place] 00 :00 daily for Medical 30 days. Branch furosemide 2020-11- Yes [id number] 20mg Take 1 Univers 20 mg 01-04 [...] by mouth ity of 14:14: 00:00 daily. [place] 53 :00 Medical Branch isosorbide 2020-11 Yes 60mg 60 mg, Unive rs mononitrate 2-18 Oral, BID, it y of (IMDUR) 24 14:00: First dose [place] hr tablet 00 (after Medical 60 mg last Branch modificati on) on 11/02/21 at 0800, Until Discontinu ed, Routine QUEtiapine 2020-11 Yes [id number] 25mg Take 1 Univers 25 mg 2-18 tablet by ity of tablet 00:00: mouth at [place] [address] bedtime as Medical needed Branch (agitation /insomnia) . QUEtiapine 2020-11 Yes [id number] 25mg Take 1 Univers 25 mg 2-18 tablet by ity of tablet 00:00: mouth at [place] 00 bedtime as Medical needed Branch (agitation /insomnia) . QUEtiapine 2020-11 Yes [id number] 25mg Take 1 Univers 25 mg 2-18 tablet by ity of tablet 00:00: mouth at [place] 00 bedtime as Medical needed Branch (agitation /insomnia) . isosorbide 2020-11- Yes [id number] 60mg Take 1 Univers mononitrate 2-18 -18 tablet by it y of 60 mg 24 hr 00:00: 05:59 mouth 2 [place] tablet 00 :00 (two) Medical times Branch daily for 30 days. metoprolol 2020-11- Yes [id number] 37.5mg Take 1.5 Univers succinate 2-18 -18 tablets by ity of XL 25 mg 24 00:00: 05:59 mouth 2 [place] hr tablet 00 :00 (two) Medical times Branch daily for 30 days. isosorbide 2020-11- Yes [id number] 60mg Take 1 Univers mononitrate 2-18 01-18 tablet by it y of 60 mg 24 hr 00:00: 05:59 mouth 2 [place] tablet 00 :00 (two) Medical times Branch daily for 30 days. metoprolol 2020-11- Yes [id number] 37.5mg Take 1.5 Univers succinate 2-18 -18 tablets by ity of XL 25 mg 24 00:00: 05:59 mouth 2 [place] hr tablet 00 :00 (two) Medical times Branch daily for 30 days. isosorbide 2020-11- Yes [id number] 60mg Take 1 Univers mononitrate 01-03 tablet by it y of 60 mg 24 hr 00:00: 05:59 mouth 2 [place] tablet 00 :00 (two) Medical times Branch daily for 30 days. metoprolol 2020-11- Yes [id number] 37.5mg Take 1.5 Univers succinate 01-03 tablets [...] First dose [place] mg 00 on [facility] Medical 10/31/21 Branch at 2100, Until Discontinu ed, Routine clopidogreL 2020-11 Yes 75mg 75 mg, Univ ers (PLAVIX) 2-16 Oral, ity of tablet 75 23:30: DAILY, [place] mg 00 First dose Medical on [facility] Branch 10/31/21 at 1730, Until Discontinu ed, Routine sulfur 2020-11- No [id number] 5mL 5 mL, Unive rs hexafluorid 01-01 Intravenou i ty of e microsphr 17:00: 17:00 s, ONCE, 1 [place] (LUMASON) 00 :00 dose, On Medica l injection 5 [facility] Branch mL 10/31/21 at 1100, Routine
membership correspondent approving Restricted medication : HOA MEGGAN isosorbide 2020-11- No 120mg 120 mg, Un mel mononitrate 01-01 Oral, ity of (IMDUR) 24 15:00: 14:16 DAILY, [place] hr tablet 00 :38 First dose Medi birdie 120 mg on [facility] Branch 10/31/21 at 0900, Until Discontinu ed, Routine Sliding 2020-11 Yes Subcutaneo [facility] ers Scale - , AC+HS, ity of Insulin-Reg 13:30: First dose [place] ular + Fsbg 00 on [facility] Medica l Testing 10/31/21 Branch at 0730, Until Discontinu ed, Routine enoxaparin 2020-11- No 1mg/kg 80 mg Uni vers (LOVENOX) 01-01 (rounded ity o f injection 09:00: 14:17 from 78 mg [place] 80 mg 00 :35 = 1 mg/kg Medical ?78 kg), Branch Subcutaneo , Q24H, First dose on [facility] 10/31/21 at 0300, Until Discontinu ed, Routine aspirin 2020-11- No 325mg 325 mg, Unive rs tablet 325 01-01 Oral, ity of mg 08:45: 08:15 ONCE, 1 [place] 00 :00 dose, On Medical [facility] Branch 10/31/21 at 0245, Routine glucagon 2020-11 [...] IV Push, ity of mg 07:36: 05:31 [id number], [place] 09 :07 Starting Medical on Madhavi Branch [...] 2-16 IV Push, ity of (PF)) 05:32: [place] injection 4 10 Starting Medi birdie mg on Thu Branch 10/30/21 at 2332, Until Discontinu ed, Routine, Nausea and Vomiting (N/V) acetaminoph 2020-11 Yes 650mg 650 mg, Un mel en 2-16 Oral, ity of (TYLENOL) 05:31: [place], [place] tablet 650 56 Starting Medic al mg on Thu Branch 10/30/21 at 2331, Until Discontinu ed, Routine, Pain (scale 1-3) acetaminoph 2020-11 Yes [id number] 1{tbl} 1 tablet, Univers en-codeine 2-16 Oral, ity of (TYLENOL 05:29: Q6HPRN, [place] #3) 300-30 29 Starting Medic al mg [...] ity of mg 23:15: 22:23 ONCE, 1 [place] 00 :00 dose, Madhav[facility] Medical 04/25/21 at Branch 1815, STAT acetaminoph 2020- No 1{tbl} 1 tablet, Univers en-codeine 6-10 06-10 Oral, ity of (TYLENOL 19:00: 17:52 ONCE, 1 [place] #3) 300-30 00 :00 dose, Madhavi Medi birdie mg tablet 1 04/25/21 at Br anch tablet 1400, ADAMA cyclobenzap No 10mg 10 mg, Uni vers rine 6-10 06-10 Oral, ONCE ity of (FLEXERIL) 19:00: 17:52 NOW, 1 [place] tablet 10 00 :00 dose, Madhavi Medic al mg 04/25/21 at Branch 1400, ADAMA cyclobenzap Yes [id number] 5mg Take 1 Univers rine 5 mg 6-10 tablet by ity o f tablet 00:00: mouth 3 [place] [address] (three) Medical times [place] daily. cyclobenzap Yes [id number] 5mg Take 1 Univers rine 5 mg 6-10 tablet by ity o f tablet 00:00: mouth 3 [place] 00 (three) Medical times [place] daily. cyclobenzap Yes [id number] 5mg Take 1 Univers rine 5 mg [...] sided low back pain cyclobenzap 2020-0 Yes [id number] 5mg Take 1 Univers rine 5 mg [...] sided low back pain cyclobenzap 2020- Yes [id number] 5mg Take 1 Univers rine 5 mg [...] 00 First dose Medical on [facility] 03/24/20 at 0900, Until Discontinu ed, Routine MULTIVITAMI 2020-0 2020- No Take by U nivers N ORAL 5- 05-08 mouth. ity of 03:38: 00:00 [place] 54 :00 Medical Branch MULTIVITAMI 2020-0 Yes Take by Un mel N ORAL 5-09 mouth. ity of 02:01: [place] 35 [facility] atorvastati 2020-0 Yes 40mg 40 mg, Univ [...] Discontinu ed, Routine aspirin 81 2020-0 Yes [id number] 81mg Take 1 U nivers mg chewable 5-09 tablet by ity of tablet 00:00: mouth [place] 00 daily with Medical breakfast. Branch furosemide 2020-0 Yes [id number] 20mg Take 1 U nivers 20 mg 5-09 tablet by ity of tablet 00:00: mouth [place] 00 daily. Medical Branch aspirin 81 2020-0 Yes [id number] 81mg Take 1 U nivers mg chewable 5-09 tablet by ity of tablet 00:00: mouth [place] 00 daily with Medical breakfast. Branch furosemide 2020-0 Yes [id number] 20mg Take 1 U nivers 20 mg 5-09 tablet by ity of tablet 00:00: mouth [place] 00 daily. [facility] Branch aspirin 81 2020-0 Yes [id number] 81mg Take 1 U nivers mg chewable 5-09 tablet by ity of tablet 00:00: mouth [place] 00 daily with Medical breakfast. Branch furosemide 2020-0 Yes [id number] 20mg Take 1 U nivers 20 mg 5-09 tablet by ity of tablet 00:00: mouth [place] 00 daily. Medical Branch aspirin 81 2020-0 Yes [id number] 81mg Take 1 U nivers mg chewable 5-09 tablet by ity of tablet 00:00: mouth [place] 00 daily with Medical breakfast. Branch furosemide 2020-0 Yes [id number] 20mg Take 1 U nivers 20 mg 5-09 tablet by ity of tablet 00:00: mouth [place] 00 daily. Medical Branch aspirin 81 2020-0 Yes [id number] 81mg Take 1 U nivers mg chewable 5-09 tablet by ity of tablet 00:00: mouth [place] 00 daily with Medical breakfast. Branch furosemide 2020-0 Yes [id number] 20mg Take 1 U nivers 20 mg 5-09 tablet by ity of tablet 00:00: mouth [place] 00 daily. Medical Branch aspirin 81 2020-0 Yes [id number] 81mg Take 1 U nivers mg chewable 5-09 tablet by ity of tablet 00:00: mouth [place] 00 daily with Medical breakfast. Branch furosemide 2020-0 Yes [id number] 20mg Take 1 U nivers 20 mg 5-09 tablet by ity of tablet 00:00: mouth [place] 00 daily. Medical Branch aspirin 81 2020-0 Yes [id number] 81mg Take 1 U nivers mg chewable 5-09 tablet by ity of tablet 00:00: mouth [place] 00 daily with Medical breakfast. Branch furosemide 2020-0 Yes [id number] 20mg Take 1 U nivers 20 mg 5-09 tablet by ity of tablet 00:00: mouth [place] 00 daily. Medical Branch aspirin 81 2020-0 Yes [id number] 81mg Take 1 U nivers mg chewable 5-09 tablet by ity of tablet 00:00: mouth [place] 00 daily with Medical breakfast. Branch furosemide 2020-0 Yes [id number] 20mg Take 1 U nivers 20 mg 5-09 tablet by ity of tablet 00:00: mouth [place] 00 daily. Medical Branch aspirin 81 2020-0 Yes [id number] 81mg Take 1 U nivers mg chewable 5-09 tablet by ity of tablet 00:00: mouth [place] 00 daily with Medical breakfast. Branch furosemide 2020-0 Yes [id number] 20mg Take 1 U nivers 20 mg 5-09 tablet by ity of tablet 00:00: mouth [place] 00 daily. Medical Branch aspirin 81 2019-2020- No [id number] 81mg Take 1 Univers mg chewable 03-24 tablet by it y of tablet 00:00: 00:00 mouth [place] 00 :00 daily with Medical breakfast. Branch furosemide 2019-2020- No [id number] 20mg Take 1 Univers 20 mg 03-24 tablet by ity of tablet 00:00: 00:00 mouth [place] 00 :00 daily. Medical Branch isosorbide 2019-2019- No [id number] 90mg Take 3 Univers mononitrate 03-24-08 tablets by i ty of 30 mg 24 hr 00:00: 00:00 mouth [place] tablet 00 :00 daily. Medical Branch isosorbide 2019-2019- No [id number] 90mg Take 3 Univers mononitrate 03-24-08 tablets by i ty of 30 mg 24 hr 00:00: 00:00 mouth [place] tablet 00 :00 daily. Medical Branch maalox/lido 2020-0 2020- No 5mL 5 mL, [facility] 2 03-23 05-08 Oral, ity of %viscous 20:45: 20:56 ONCE, 1 [place] 1:1 00 :00 dose, Fri Medical suspension 03/23/20 at [facility] (COMPOUNDED 1545, ) Routine maalox/lido 2020-0 2020- No 5mL 5 mL, [facility] 2 03-23 05-08 Oral, ity of %viscous 20:45: 20:56 ONCE, [place] 1: 00 :00 dose, Fri Medical suspension 03/23/20 at [facility] (COMPOUNDED 1545, ) Routine acetaminoph 2020-0 Yes [...] IV Push, ity of mg 07:59: Q4HPRN, [place] [address] Starting Medical Ut [facility] 03/23/20 Branch at 0259, Until Discontinu ed, Routine, Chest pain morpHINE 2020-0 Yes 2mg 2 mg, Slow Uni vers injection 2 -08 IV Push, ity of mg 07:59: Q4HPRN, [place] [address] Starting Medical Ut [facility] 03/23/20 Branch at 0259, Until Discontinu [...] Fri Medi birdie (4 %) 03/23/20 at [place] infusion 2 0245, g Routine KCL 2020-0 [...] of 10 mL with 04:01: 00:00 intravenou [place] sodium 03 :00 sly once Medical chloride now. Branch 2.5 mEq/mL SolP 17.125 mEq acetaminoph 2020-0 Yes 650mg 650 mg, Un mel en 03-23 Oral, ity of (TYLENOL) 02:51: Q6HPRN, [place] tablet 650 29 Starting Medic al mg [facility] 03/22/20 Branch at 2151, Until Discontinu ed, Routine, Pain (scale 1-3) acetaminoph 2020-0 Yes 650mg 650 mg, Un mel en 03-23 Oral, ity of (TYLENOL) 02:51: Q6HPRN, [place] tablet 650 29 Starting Medic al mg [facility] 03/22/20 Branch at 2151, Until Discontinu ed, Routine, Pain (scale 1-3) nitroglycer 2020-0 Yes .4mg 0.4 mg, Uni vers in 03-23 Sublingual ity of (NITROSTAT) 02:38: , Q5MIN [place] sublingual 00 PRN, 3 Medical tablet 0.4 doses, Branch mg Starting [facility] 03/22/20 at 2138, Until Discontinu ed, ADAMA, Chest pain nitroglycer 2020-0 Yes .4mg 0.4 mg, Uni vers in 03-23 Sublingual ity of (NITROSTAT) 02:38: , Q5MIN [place] sublingual 00 PRN, 3 Medical tablet 0.4 doses, Branch mg Starting [facility] 03/22/20 at 2138, Until Discontinu ed, ADAMA, [...] of tablet 324 02:37: 02:51 ONCE, 1 [place] mg 00 :00 dose, [facility] 03/22/20 at Branch 2145, ADAMA isosorbide 2020-0 Yes [id number] 90mg Take 1.5 Univers mononitrate 5-08 tablets by it y of 60 mg 24 hr 00:00: mouth [place] tablet 00 daily. [facility] isosorbide 2020-0 Yes [id number] 90mg Take 1.5 Univers mononitrate 5-08 tablets by it y of 60 mg 24 hr 00:00: mouth [place] tablet 00 daily. [facility] isosorbide 2020-0 Yes [id number] 90mg Take 1.5 Univers mononitrate 5-08 tablets by it y of 60 mg 24 hr 00:00: mouth [place] tablet 00 daily. [facility] isosorbide 2020-0 Yes [id number] 90mg Take 1.5 Univers mononitrate 5-08 tablets by it y of 60 mg 24 hr 00:00: mouth [place] tablet 00 daily. [facility] isosorbide 2020-0 Yes [id number] 90mg Take 1.5 Univers mononitrate 5-08 tablets by it y of 60 mg 24 hr 00:00: mouth [place] tablet 00 daily. [facility] isosorbide 2020-0 Yes [id number] 90mg Take 1.5 Univers mononitrate 5-08 tablets by it y of 60 mg 24 hr 00:00: mouth [place] tablet 00 daily. [facility] isosorbide 2020-0 Yes [id number] 90mg Take 1.5 Univers mononitrate 5-08 tablets by it y of 60 mg 24 hr 00:00: mouth [place] tablet 00 daily. [facility] isosorbide 2020-0 Yes [id number] 90mg Take 1.5 Univers mononitrate 5-08 tablets by it y of 60 mg 24 hr 00:00: mouth [place] tablet 00 daily. [facility] isosorbide 2020-0 Yes [id number] 90mg Take 1.5 Univers mononitrate 5-08 tablets by it y of 60 mg 24 hr 00:00: mouth [place] tablet 00 daily. [facility] isosorbide 2020-0 2020- No [id number] 90mg Take 1.5 Univers mononitrate 5-08 12-18 tablets by i ty of 60 mg 24 hr 00:00: 00:00 mouth [place] tablet 00 :00 daily. Medical Branch acetaminoph 2020-0 2020- No [id number] 975mg Take 3 Univers en 325 mg 5-08 05-19 tablets by ity of tablet 00:00: 04:59 mouth [place] 00 :00 every 8 Medical (eight) Branch hours for 10 days. acetaminoph 2020-0 2020- No [id number] 975mg Take 3 Univers en 325 mg 5-08 05-19 tablets by ity of tablet 00:00: 04:59 mouth [place] 00 :00 every 8 Medical (eight) Branch hours for 10 days. acetaminoph 2020-0 2020- No [id number] 975mg Take 3 Univers en 325 mg 5-08 05-19 tablets by ity of tablet 00:00: 04:59 mouth [place] 00 :00 every 8 Medical (eight) Branch hours for 10 days. acetaminoph 2020-0 2020- No [id number] 975mg Take 3 Univers en 325 mg 5-08 05-19 tablets by ity of tablet 00:00: 04:59 mouth [place] 00 :00 every 8 Medical (eight) Branch hours for 10 days. acetaminoph 2020-0 2020- No [id number] 975mg Take 3 Univers en 325 mg 5-08 05-19 tablets by ity of tablet 00:00: 04:59 mouth [place] 00 :00 every 8 Medical (eight) Branch hours for 10 days. lidocaine 5 2019- No [id number] 1{patch Apply 1 Univers % (700 5-08 05-09 } Patch to ity of mg/patch) 00:00: 04:59 area(s) [place] patch 00 :00 once now Medical for 1 Branch dose. lidocaine 5 2020- No [id number] 1{patch Apply 1 Univers % (700 5-08 05-09 } Patch to ity of mg/patch) 00:00: 04:59 area(s) [place] patch 00 :00 once now Medical for 1 Branch dose. lidocaine 5 2020- No [id number] 1{patch Apply 1 Univers % (700 5-08 05-08 } Patch to ity of mg/patch) 00:00: 00:00 area(s) [place] patch 00 :00 once now Medical for 1 Branch dose. lidocaine 5 2019- No [id number] 1{patch Apply 1 Univers % (700 5-08 05-08 } Patch to ity of mg/patch) 00:00: 00:00 area(s) [place] patch 00 :00 once now Medical for 1 Branch dose. glipiZIDE Yes 5mg 5 mg, Univers (GLUCOTROL) 4-23 Oral, ity of tablet 5 mg 14:00: DAILY, [place] 00 First dose Medical on [facility] Branch 03/08/20 at 0900, Until Discontinu ed, Routine spironolact 2020- No [id number] 12.5mg Take 0.5 Univers one 25 mg 4-23 05-24 tablets by ity of tablet 00:00: 04:59 mouth [place] 00 :00 daily for Medical 30 days. Branch spironolact 2019- No [id number] 12.5mg Take 0.5 Univers one 25 mg 4-23 05-24 tablets by ity of tablet 00:00: 04:59 mouth [place] 00 :00 daily for Medical 30 days. Branch spironolact 2019- No [id number] 12.5mg Take 0.5 Univers one 25 mg 4-23 05-24 tablets by ity of tablet 00:00: 04:59 mouth [place] 00 :00 daily for Medical 30 days. Branch spironolact 2020- No [id number] 12.5mg Take 0.5 Univers one 25 mg 4-23 05-07 tablets by ity of tablet 00:00: 00:00 mouth [place] 00 :00 daily for Medical 30 days. Branch spironolact 2020- No [id number] 12.5mg Take 0.5 Univers one 25 mg [...] N ORAL - mouth. ity of 23:46: [place] 10 Medical Branch thiamine 2020-0 Yes 100mg [...] tablet 10 daily. Medical Branch NaCl 0.9% 0 Yes 10mL Inject 10 Uni vers (NS) Soln 4-22 mL ity of 10 mL with 23:46: intravenou [place] sodium 10 sly once Medical chloride now. Branch 2.5 mEq/mL SolP 17.125 mEq metoprolol 0 2020- No 12.5mg Take 12.5 Univers tartrate - 04-22 mg by ity of 12.5 mg 20:15: 00:00 mouth 2 [place] 29 :00 (two) Medical times Branch daily. aspirin 81 2019-0 2020- No 81mg Take 81 mg Univers mg chewable -07 03-22 by mouth ity of tablet 20:15: 00:00 daily. [place] 29 :00 Medical Branch atorvastati 2019-0 2020- No 40mg Take 40 mg Univers n 40 mg -07 03-22 by mouth ity of tablet 20:15: 00:00 at [place] 29 :00 bedtime. Medical Branch temazepam 2019-0 Yes 15mg 15 mg, Univer s (RESTORIL) -22 Oral, ity of capsule 15 01:55: QHSPRN, [place] mg 38 Starting Medical Tue Branch 03/06/20 at 2055, Until Discontinu ed, Routine, Insomnia Magnesium 2019-0 Yes [id number] 400mg Take 400 Univers Oxide 420 4-22 mg by ity of mg Tab 00:00: mouth [place] 00 daily. Medical Branch Insulin 2019-0 Yes [id number] 10U inject 10 Univers Glargine 4-22 Units ity of 100 unit/mL 00:00: under the [place] (3 mL) 00 skin at Medical injection bedtime. Branch temazepam 2019-0 Yes [id number] 15mg Take 1 Un mel 15 mg 4-22 capsule by ity of capsule 00:00: mouth at [place] 00 bedtime as Medical needed for Branch Insomnia. furosemide 2020-0 Yes [id number] 40mg Take 1 Univers 40 mg 4-22 tablet by ity of tablet 00:00: mouth [place] 00 every Medical morning Branch and evening. Magnesium 2020-0 Yes [id number] 400mg Take 400 Univers Oxide 420 4-22 mg by ity of mg Tab 00:00: mouth [place] 00 daily. Medical Branch potassium 2020-0 Yes [id number] 20meq Take 20 Univers chloride 20 4-22 mEq by ity of mEq packet 00:00: mouth [place] 00 daily. Medical Take with Branch lasix in the morning isosorbide 2020-0 Yes [id number] 15mg Take 0.5 Univers mononitrate 4-22 tablets by it y of 30 mg 24 hr 00:00: mouth [place] tablet 00 daily. Medical Hold if Branch systolic blood pressure less than 120 Insulin 2020-0 Yes [id number] 10U inject 10 Univers Glargine 4-22 Units ity of 100 unit/mL 00:00: under the [place] (3 mL) 00 skin at Medical injection bedtime. Branch temazepam 2020-0 Yes [id number] 15mg Take 1 Un mel 15 mg 4-22 capsule by ity of capsule 00:00: mouth at [place] 00 bedtime as Medical needed for Branch Insomnia. furosemide 2020-0 Yes [id number] 40mg Take 1 Univers 40 mg 4-22 tablet by ity of tablet 00:00: mouth [place] 00 every Medical morning Branch and evening. Magnesium 2020-0 Yes [id number] 400mg Take 400 Univers Oxide 420 4-22 mg by ity of mg Tab 00:00: mouth [place] 00 daily. Medical Branch potassium 2020-0 Yes [id number] 20meq Take 20 Univers chloride 20 4-22 mEq by ity of mEq packet 00:00: mouth [place] 00 daily. Medical Take with Branch lasix in the morning isosorbide 2020-0 Yes [id number] 15mg Take 0.5 Univers mononitrate 4-22 tablets by it y of 30 mg 24 hr 00:00: mouth [place] tablet 00 daily. Medical Hold if Branch systolic blood pressure less than 120 Insulin 2020-0 Yes [id number] 10U inject 10 Univers Glargine 4-22 Units ity of 100 unit/mL 00:00: under the [place] (3 mL) 00 skin at Medical injection bedtime. Branch temazepam 2020-0 Yes [id number] 15mg Take 1 Un mel 15 mg 4-22 capsule by ity of capsule 00:00: mouth at [place] 00 bedtime as Medical needed for Branch Insomnia. furosemide 2020-0 Yes [id number] 40mg Take 1 [facility] 40 mg 4-22 tablet by ity of tablet 00:00: mouth [place] 00 every Medical morning Branch and evening. Magnesium 2020-0 Yes [id number] 400mg Take 400 [facility] Oxide 420 4-22 mg by ity of mg Tab 00:00: mouth [place] 00 daily. Medical Branch potassium 2020-0 Yes [id number] 20meq Take 20 [facility] chloride 20 4-22 mEq by ity of mEq packet 00:00: mouth [place] 00 daily. Medical Take with Branch lasix in the morning isosorbide 2020-0 Yes [id number] 15mg Take 0.5 [facility] mononitrate 4-22 tablets by it y of 30 mg 24 hr 00:00: mouth [place] tablet 00 daily. Medical Hold if Branch systolic blood pressure less than 120 Insulin 2020-0 Yes [id number] 10U inject 10 [facility] Glargine 4-22 Units ity of 100 unit/mL 00:00: under the [place] (3 mL) 00 skin at Medical injection bedtime. Branch vitamin 2019-0 2020- No [id number] 1000ug Take 1 [facility] B-12 1,000 4-22 07-22 tablet by ity of mcg tablet 00:00: 04:59 mouth [place] 00 :00 daily for Medical 90 days. Branch vitamin 2019-0 2020- No [id number] 1000ug Take 1 Univers B-12 1,000 4-22 07-22 tablet by ity of mcg tablet 00:00: 04:59 mouth [place] 00 :00 daily for Medical 90 days. Branch vitamin 2020-0 2020- No [id number] 1000ug Take 1 Univers B-12 1,000 4-22 07-22 tablet by ity of mcg tablet 00:00: 04:59 mouth [place] 00 :00 daily for Medical 90 days. Branch vitamin 2019-0 2020- No [id number] 1000ug Take 1 [facility] B-12 1,000 4-22 07-22 tablet by ity of mcg tablet 00:00: 04:59 mouth [place] 00 :00 daily for Medical 90 days. Branch glipiZIDE 5 2020- No [id number] 2.5mg Take 0.5 [facility] mg tablet 03-07-23 tablets by ity of 00:00: 04:59 mouth 2 [place] 00 :00 (two) Medical times Branch daily before breakfast and dinner for 30 days. metoprolol 2019- 2020- No [id number] 25mg Take 1 [facility] succinate - 05-23 tablet by ity of XL 25 mg 24 00:00: 04:59 mouth 2 [place] hr tablet 00 :00 (two) Medical times Branch daily for 30 days. OLANZapine 2019- 2020- No [id number] 2.5mg Take 1 [facility] 2.5 mg -06 04-23 tablet by ity of tablet 00:00: 04:59 mouth at [place] 00 :00 bedtime Medical for 30 Branch days. ranolazine 2019- 2020- No [id number] 1000mg Take 2 [facility] 500 mg 12 -06 04-23 tablets by ity of hr tablet 00:00: 04:59 mouth [place] 00 :00 every 12 Medical (twelve) Branch hours for 30 days. aspirin 81 2019- 2020- No [id number] 81mg Take 1 [facility] mg chewable -06 04-23 tablet by it y of tablet 00:00: 04:59 mouth [place] 00 :00 daily with Medical breakfast Branch for 30 days. atorvastati 2019- 2020- No [id number] 40mg Take 1 [facility] n 40 mg -06 04-23 tablet by ity of tablet 00:00: 04:59 mouth at [place] 00 :00 bedtime Medical for 30 Branch days. glipiZIDE 5 2020- No [id number] 2.5mg Take 0.5 [facility] mg tablet 03-07-23 tablets by ity of 00:00: 04:59 mouth 2 [place] 00 :00 (two) Medical times Branch daily before breakfast and dinner for 30 days. metoprolol 2019- 2020- No [id number] 25mg Take 1 [facility] succinate 4- 05-23 tablet by ity of XL 25 mg 24 00:00: 04:59 mouth 2 [place] hr tablet 00 :00 (two) Medical times Branch daily for 30 days. OLANZapine 2019- 2020- No [id number] 2.5mg Take 1 [facility] 2.5 mg 4-22 05-23 tablet by ity of tablet 00:00: 04:59 mouth at [place] 00 :00 bedtime Medical for 30 Branch days. ranolazine 2020-0 2020- No [id number] 1000mg Take 2 [facility] 500 mg 12 4-22 05-23 tablets by ity of hr tablet 00:00: 04:59 mouth [place] 00 :00 every 12 Medical (twelve) Branch hours for 30 days. aspirin 81 2019-0 2020- No [id number] 81mg Take 1 [facility] mg chewable 4-22 05-23 tablet by it y of tablet 00:00: 04:59 mouth [place] 00 :00 daily with Medical breakfast Branch for 30 days. atorvastati 2019-0 2020- No [id number] 40mg Take 1 [facility] n 40 mg 4-22 05-23 tablet by ity of tablet 00:00: 04:59 mouth at [place] 00 :00 bedtime Medical for 30 Branch days. glipiZIDE 5 2019-0 2020- No [id number] 2.5mg Take 0.5 [facility] mg tablet 4- 05-23 tablets by ity of 00:00: 04:59 mouth 2 [place] 00 :00 (two) Medical times Branch daily before breakfast and dinner for 30 days. metoprolol 2019-0 2020- No [id number] 25mg Take 1 [facility] succinate 4-22 05-23 tablet by ity of XL 25 mg 24 00:00: 04:59 mouth 2 [place] hr tablet 00 :00 (two) Medical times Branch daily for 30 days. OLANZapine 2020-0 2020- No [id number] 2.5mg Take 1 [facility] 2.5 mg 4-22 05-23 tablet by ity of tablet 00:00: 04:59 mouth at [place] 00 :00 bedtime Medical for 30 Branch days. ranolazine 2020-0 2020- No [id number] 1000mg Take 2 [facility] 500 mg 12 4-22 05-23 tablets by ity of hr tablet 00:00: 04:59 mouth [place] 00 :00 every 12 Medical (twelve) Branch hours for 30 days. aspirin 81 2020-0 2020- No [id number] 81mg Take 1 [facility] mg chewable 4-22 05-23 tablet by it y of tablet 00:00: 04:59 mouth [place] 00 :00 daily with Medical breakfast Branch for 30 days. atorvastati 2019- No [id number] 40mg Take 1 [facility] n 40 mg 03-07-23 tablet by ity of tablet 00:00: 04:59 mouth at [place] 00 :00 bedtime Medical for 30 Branch days. glipiZIDE 5 2019- No [id number] 2.5mg Take 0.5 [facility] mg tablet 03-07-23 tablets by ity of 00:00: 04:59 mouth 2 [place] 00 :00 (two) Medical times Branch daily before breakfast and dinner for 30 days. metoprolol 2019- No [id number] 25mg Take 1 [facility] succinate 03-07-23 tablet by ity of XL 25 mg 24 00:00: 04:59 mouth 2 [place] hr tablet 00 :00 (two) Medical times Branch daily for 30 days. ranolazine 2019- No [id number] 1000mg Take 2 [facility] 500 mg 12 03-07-23 tablets by ity of hr tablet 00:00: 04:59 mouth [place] 00 :00 every 12 Medical (twelve) Branch hours for 30 days. atorvastati 2019- No [id number] 40mg Take 1 [facility] n 40 mg 03-07-23 tablet by ity of tablet 00:00: 04:59 mouth at [place] 00 :00 bedtime Medical for 30 Branch days. furosemide 2019- No [id number] 40mg Take 1 [facility] 40 mg -06 04-08 tablet by ity of tablet 00:00: 00:00 mouth [place] 00 :00 every Medical morning Branch and evening. aspirin 81 2019- No [id number] 81mg Take 1 [facility] mg chewable - 05-08 tablet by it y of tablet 00:00: 00:00 mouth [place] 00 :00 daily with Medical breakfast Branch for 30 days. isosorbide 2020- No [id number] 15mg Take 0.5 [facility] mononitrate -06 04-08 tablets by i ty of 30 mg 24 hr 00:00: 00:00 mouth [place] tablet 00 :00 daily. Medical Hold if Branch systolic blood pressure less than 120 Insulin 2019- No [id number] 10U inject 10 [facility] Glargine - 05-08 Units ity of 100 unit/mL 00:00: 00:00 under the [place] (3 mL) 00 :00 skin at Medical injection bedtime. Branch glipiZIDE 5 2020- No [id number] 2.5mg Take 0.5 [facility] mg tablet 03-07 05-08 tablets by ity of 00:00: 00:00 mouth 2 [place] 00 :00 (two) Medical times Branch daily before breakfast and dinner for 30 days. metoprolol 2019- 2020- No [id number] 25mg Take 1 [facility] succinate - 05-08 tablet by ity of XL 25 mg 24 00:00: 00:00 mouth 2 [place] hr tablet 00 :00 (two) Medical times Branch daily for 30 days. ranolazine 2019- 2020- No [id number] 1000mg Take 2 [facility] 500 mg 12 - 05-08 tablets by ity of hr tablet 00:00: 00:00 mouth [place] 00 :00 every 12 Medical (twelve) Branch hours for 30 days. furosemide 2019- 2020- No [id number] 40mg Take 1 [facility] 40 mg -06 04-08 tablet by ity of tablet 00:00: 00:00 mouth [place] 00 :00 every Medical morning Branch and evening. aspirin 81 2019-2019- No [id number] 81mg Take 1 [facility] mg chewable - 05-08 tablet by it y of tablet 00:00: 00:00 mouth [place] 00 :00 daily with Medical breakfast Branch for 30 days. atorvastati 2019- 2020- No [id number] 40mg Take 1 [facility] n 40 mg - 05-08 tablet by ity of tablet 00:00: 00:00 mouth at [place] 00 :00 bedtime Medical for 30 Branch days. Magnesium 2019- 2020- No [id number] 400mg Take 400 [facility] Oxide 420 - 05-08 mg by ity of mg Tab 00:00: 00:00 mouth [place] 00 :00 daily. Medical Branch vitamin 2019- 2020- No [id number] 1000ug Take 1 [facility] B-12 1,000 - 05-08 tablet by ity of mcg tablet 00:00: 00:00 mouth [place] 00 :00 daily for Medical 90 days. Branch isosorbide 2019- 2020- No [id number] 15mg Take 0.5 [facility] mononitrate -22 05-08 tablets by i ty of 30 mg 24 hr 00:00: 00:00 mouth [place] tablet 00 :00 daily. Medical Hold if Branch systolic blood pressure less than 120 OLANZapine 2019- 2020- No [id number] 2.5mg Take 1 [facility] 2.5 mg - 05-07 tablet by ity of tablet 00:00: 00:00 mouth at [place] 00 :00 bedtime Medical for 30 Branch days. temazepam 2019- 2020- No [id number] 15mg Take 1 U nivers 15 mg 03-07 05-07 capsule by ity of capsule 00:00: 00:00 mouth at [place] 00 :00 bedtime as Medical needed for Branch Insomnia. potassium 2019- 2020- No [id number] 20meq Take 20 Univers chloride 20 -22 05-07 mEq by ity o f mEq packet 00:00: 00:00 mouth [place] 00 :00 daily. Medical Take with Branch lasix in the morning OLANZapine 2019-2019- No [id number] 2.5mg Take 1 [facility] 2.5 mg 03-07-07 tablet by ity of tablet 00:00: 00:00 mouth at [place] 00 :00 bedtime Medical for 30 Branch days. temazepam 2019-2019- No [id number] 15mg Take 1 U nivers 15 mg - 05-07 capsule by ity of capsule 00:00: 00:00 mouth at [place] 00 :00 bedtime as Medical needed for Branch Insomnia. potassium 2019- 2020- No [id number] 20meq Take 20 Univers chloride 20 -22 05-07 mEq by ity o f mEq packet 00:00: 00:00 mouth [place] 00 :00 daily. Medical Take with Branch lasix in the morning isosorbide 2019-2019- No 60mg 60 mg, Univ ers mononitrate - 04-21 Oral, ity of (IMDUR) 24 14:00: 13:43 DAILY, [place] hr tablet 00 :56 First dose Medi bird[place] 60 mg on Thu [place] 03/06/20 at 0900, Until Discontinu ed, Routine OLANZapine 2019- Yes 2.5mg 2.5 mg, Uni vers (ZyPREXA) 4-21 Oral, QHS, ity of tablet 2.5 02:00: First dose [place] mg 00 on [facility] 03/05/20 at Branch 2100, Until Discontinu ed, Routine insulin 2020-0 Yes 10U 10 Units, Unive rs glargine 4-21 Subcutaneo ity o f (LANTUS 02:00: us, QHS, [place] U-100) 00 First dose Medical injection on [facility] Branch 10 Units 03/05/20 at 2100, Until Discontinu ed, Routine donepezil 2020-0 Yes 5mg 5 mg, Univers (ARICEPT) 4-21 Oral, QHS, ity of tablet 5 mg 02:00: First dose [place] 00 on [facility] 03/05/20 at Branch 2100, Until Discontinu ed, Routine atorvastati 2020-0 Yes 40mg 40 mg, Univ ers n (LIPITOR) 4-21 Oral, QHS, it y of tablet 40 02:00: First dose [place] mg 00 on [facility] 03/05/20 at Branch 2100, Until Discontinu ed, Routine isosorbide 2020-0 2020- No 30mg 30 mg, Univ ers mononitrate 03-05-20 Oral, ity of (IMDUR) 24 15:30: 15:21 ONCE, 1 [place] hr tablet 00 :00 dose, [facility] Medic al 30 mg 03/05/20 at Branch 1030, Routine spironolact 2020-0 Yes 12.5mg 12.5 mg, Univers one 4-20 Oral, ity of (ALDACTONE) 14:00: DAILY, [place] tablet 12.5 00 First dose Me dical mg on [facility] 03/05/20 at 0900, Until Discontinu ed, Routine memantine 2020-0 Yes 10mg 10 mg, Univer s (NAMENDA) 4-20 Oral, ity of tablet 10 14:00: DAILY, [place] mg 00 First dose Medical on [facility] 03/05/20 at 0900, Until Discontinu ed, Routine
membership correspondent approving Restricted medication : MEGADC lisinopril 2020-0 2020- No 5mg 5 mg, Unive rs (PRINIVIL,Z 03-05-21 Oral, ity of ESTRIL) 14:00: 13:44 DAILY, [place] tablet 5 mg 00 :01 First dose Me dical on [facility] 03/05/20 at 0900, Until Discontinu ed, Routine [...] 500 mg 00 First dose Medical on [facility] 03/05/20 at 0800, Until Discontinu ed, Routine metoprolol 2020-0 Yes 25mg 25 mg, Unive rs succinate 4-20 Oral, BID, ity of XL (TOPROL 13:00: First dose [place] XL) tablet 00 on [facility] Medical 25 mg 03/05/20 at Branch 0800, Until Discontinu ed, Routine magnesium 2020-0 Yes 400mg 400 mg, Univ ers oxide 4-20 Oral, BID, ity of (MAG-OX 13:00: First [place] 400) tablet 00 on [facility] Medica l 400 mg 03/05/20 at Branch 0800, Until Discontinu ed, Routine aspirin 2020-0 Yes 81mg 81 mg, Univers chewable -20 Oral, QAM ity of tablet 81 13:00: WITH [place] mg 00 BREAKFAST, Medical First dose Branch on [facility] 03/05/20 at 0800, Until Discontinu ed, Routine Sliding 2020-0 Yes Subcutaneo Univ ers Scale 4-20 us, AC+HS, ity of Insulin-Reg 12:30: First dose [place] ular + Fsbg 00 on [facility] Medica l Testing 03/05/20 at Branch 0730, Until Discontinu ed, Routine glipiZIDE 2020-0 2020- No 5mg 5 mg, Univer s (GLUCOTROL) -20 04-22 Oral, ity of tablet 5 mg 12:30: 19:41 BIDAC, [place] 00 :44 First dose Medical on [facility] 03/05/20 at 0730, Until Discontinu ed, Routine [...] Starting Medica l 25 mL [facility] 03/04/20 at 2202, Until Discontinu ed, ADAMA, Blood Glucose < or = 70 mg/dL and patient is unable to swallow or has mental status changes. furosemide 2020-0 Yes 40mg 40 mg, Unive rs (LASIX) 4-20 Oral, ity of tablet 40 03:00: QAM+PM, [place] mg 00 First dose Medical on [facility] 03/04/20 at 2200, Until Discontinu ed, Routine cyanocobala 2020-0 Yes 1000ug 1,000 mcg, Univers min 4-20 Subcutaneo ity of (VITAMIN 03:00: us, Q24H, [place] B12) 00 First dose Medical injection on [facility] 1,000 mcg 03/04/20 at 2200, Until Discontinu ed, Routine heparin 2020-0 Yes 5000U 5,000 Univers (porcine) 4-20 Units, ity of injection 03:00: Subcutaneo [place] 5,000 Units 00 us, Q8H, Medi birdie First dose Branch on [place] 03/04/20 at 2200, Until Discontinu ed, Routine ondansetron 2020-0 Yes 4mg 4 mg, Slow Univers (ZOFRAN 4-20 IV Push, ity of (PF)) 02:34: Q6HPRN, [place] injection 4 40 Starting Medi birdie mg [facility] 03/04/20 at 2134, Until Discontinu ed, Routine, Nausea and Vomiting (N/V) traMADol 2020-0 2020- No 50mg 50 mg, Univer s (ULTRAM) 4-20 04-22 Oral, ity of tablet 50 02:34: 02:33 Q8HPRN, [place] mg 23 :23 Starting Medical [facility] 03/04/20 at 2134, Until 03/06/20 at 2133, Routine, Pain (scale 4-6) acetaminoph 2020-0 Yes 650mg 650 mg, Un mel en 4-20 Oral, ity of (TYLENOL) 02:34: Q6HPRN, [place] tablet 650 20 Starting Medic al mg [place] Branch 03/04/20 at 2134, Until Discontinu ed, Routine, Pain (scale 1-3) lisinopril 2020-0 Yes [id number] 5mg Take 1 Univers 5 mg tablet 4-18 tablet by ity of 00:00: mouth [place] 00 daily. Medical Branch isosorbide 2020-0 Yes [id number] 30mg Take 1 [facility] mononitrate 4-18 tablet by ity of 30 mg 24 hr 00:00: mouth [place] tablet 00 daily. Medical Branch lisinopril 2020-0 Yes [id number] 5mg Take 1 Univers 5 mg tablet 4-18 tablet by ity of 00:00: mouth [place] 00 daily. Medical Branch isosorbide 2020-0 Yes [id number] 30mg Take 1 [facility] mononitrate 4-18 tablet by ity of 30 mg 24 hr 00:00: mouth [place] tablet 00 daily. Medical Branch lisinopril 2019-0 2020- No [id number] 5mg Take 1 Univers 5 mg tablet 4-18 04-22 tablet by it y of 00:00: 00:00 mouth [place] 00 :00 daily. Medical Branch isosorbide 2019-0 2020- No [id number] 30mg Take 1 [facility] mononitrate 4-18 04-22 [...] N ORAL 4-17 mouth. ity of 17:34: [place] [address] Medical Branch thiamine 2020-0 Yes 100mg Take 100 Univ ers (VITAMIN 4-17 mg by ity of B-1) 100 mg 17:34: mouth [place] tablet 27 daily. Medical Branch aspirin 81 2020-0 Yes 81mg Take 81 mg U nivers mg chewable 4-17 by mouth ity of tablet 17:34: daily. [place] [address] Medical Branch atorvastati 2020-0 Yes 40mg Take 40 mg Univers n 40 mg 4-17 by mouth ity of tablet 17:34: at [place] [address] bedtime. Medical Branch NaCl 0.9% 2020-0 Yes [...] 4-17 mouth. ity of complex and 17:34: [place] C ( 27 Medical COMPLEX-VIT Branch RAZA C-FOLIC ACID ORAL) Cholecalcif 2020-0 Yes Take by Un mel ann, 4-17 mouth. ity of Vitamin D3, 17:34: [place] 2,000 unit 27 Medical capsule Branch metoprolol 2020-0 Yes 12.5mg Take 12.5 Univers tartrate 4-17 mg by ity of 12.5 mg 17:34: mouth 2 [place] 27 (two) Medical times Branch daily. MULTIVITAMI 2020-0 Yes Take by Un mel N ORAL 4-17 mouth. ity of 17:34: [place] [address] Medical Branch thiamine 2020-0 Yes 100mg Take 100 Univ ers (VITAMIN 4-17 mg by ity of B-1) 100 mg 17:34: mouth [place] tablet 27 daily. Medical Branch aspirin 81 2020-0 Yes 81mg Take 81 mg U nivers mg chewable 4-17 by mouth ity of tablet 17:34: daily. [place] [address] Medical Branch atorvastati 2020-0 Yes 40mg Take [...] Until Discontinu ed, Routine furosemide 2020-0 Yes [id number] 40mg Take 1 [facility] 40 mg 4-17 tablet by ity of tablet 00:00: mouth [place] 00 every Medical morning Branch and evening. potassium 2020-0 Yes [id number] 20meq Take 20 Univers chloride 20 4-17 mEq by ity of mEq packet 00:00: mouth [place] 00 daily. Medical Branch vitamin 2020-0 Yes [id number] 1000ug Take 1 U nivers B-12 1,000 4-17 tablet by ity of mcg tablet 00:00: mouth [place] 00 daily. Medical Branch furosemide 2020-0 Yes [id number] 40mg Take 1 [facility] 40 mg 4-17 tablet by ity of tablet 00:00: mouth [place] 00 every Medical morning Branch and evening. potassium 2020-0 Yes [id number] 20meq Take 20 Univers chloride 20 4-17 mEq by ity of mEq packet 00:00: mouth [place] 00 daily. Medical Branch vitamin 2020-0 Yes [id number] 1000ug Take 1 U nivers B-12 1,000 4-17 tablet by ity of mcg tablet 00:00: mouth [place] 00 daily. Medical Branch furosemide 2020-0 2020- No [id number] 40mg Take 1 [facility] 40 mg 4-17 04-22 tablet by ity of tablet 00:00: 00:00 mouth [place] 00 :00 every Medical morning Branch and evening. potassium 2020-0 2020- No [id number] 20meq Take 20 Univers chloride 20 4-17 04-22 mEq by ity o f mEq packet 00:00: 00:00 mouth [place] 00 :00 daily. Medical Branch vitamin 2020-0 2020- No [id number] 1000ug Take 1 Univers B-12 1,000 -17 04-22 tablet by ity of mcg tablet 00:00: 00:00 mouth [place] 00 :00 daily. Medical Branch cyanocobala 2020-0 Yes 1000ug 1,000 mcg, Univers min 4-16 Subcutaneo ity of (VITAMIN 20:45: us, Q24H, [place] B12) 00 First dose Medical injection on [facility] Branch 1,000 mcg 03/01/20 at 1545, Until Discontinu ed, Routine isosorbide 2020-0 Yes 30mg 30 mg, Unive rs mononitrate 4-16 Oral, ity of (IMDUR) 24 14:00: DAILY, [place] hr tablet 00 First dose Medi birdie 30 mg on [facility] Branch 03/01/20 at 0900, Until Discontinu ed, Routine memantine 2019-0 Yes 10mg 10 mg, Univer s (NAMENDA) 4-16 Oral, ity of tablet 10 14:00: DAILY, [place] mg 00 First dose Medical on [facility] 03/01/20 at 0900, Until Discontinu ed, Routine
membership correspondent approving Restricted medication : MEGADC lisinopril 2020-0 Yes 5mg 5 mg, Univer s (PRINIVIL,Z 4-16 Oral, ity of ESTRIL) 14:00: DAILY, [place] tablet 5 mg 00 First dose Me dical on [facility] Branch 03/01/20 at 0900, Until Discontinu ed, Routine enoxaparin 2020-0 Yes 30mg 30 mg, Unive rs (LOVENOX) 4-16 Subcutaneo ity of injection 14:00: [place], DAILY, [place] 30 mg 00 First dose Medical on [facility] 03/01/20 at 0900, Until Discontinu ed, Routine KCL 2020-0 2020- No 20meq 20 mEq, Univers (KLOR-CON -16 04-16 Oral, ity of M20) tablet 14:00: 13:26 DAILY, [place] 20 mEq 00 :35 First dose Medical on [facility] 4/16/20 at 0900, Until Discontinu ed, Routine [...] [place] gram/50 mL 00 :00 dose, Thu [facility] birdie (4 %) 2 g 02/29/20 at [facility] piggyback 2230 metoprolol 2020-0 2020- No 5mg 5 mg, Slow Univers (LOPRESSOR) 03-01 IV Push, ity of injection 5 03:30: 03:37 ONCE, 1 [place] mg 00 :00 dose, Thu [facility] 02/29/20 at Branch 2230, ADAMA glipiZIDE 2020-0 Yes 5mg 5 mg, Univers (GLUCOTROL) 03-01 Oral, ity of tablet 5 mg 02:45: BIDAC, [place] 00 First dose Medical on Thu [place] 02/29/20 at 2145, Until Discontinu ed, Routine insulin 2020-0 Yes 10U 10 Units, Unive rs glargine 03-01 Subcutaneo ity o f (LANTUS 02:45: us, QHS, [place] U-100) 00 First dose Medical injection on Thu [place] 10 Units 02/29/20 at 2145, Until Discontinu [...] mg 00 First dose Medical on Thu [place] 02/29/20 at 2130, Until Discontinu ed, Routine [...] 02-14 by mouth ity of 00:00: daily. [place] 00 Medical Branch donepezil 5 2019- No 5mg Take 5 mg Univers mg tablet 02-1408 by mouth ity o f 00:00: 00:00 daily. [place] 00 :00 Medical Branch nitroglycer 2019- No [...] ity of Vitamin D3, 23:00: [place] 2,[facility] Medical capsule Branch metoprolol 2020-0 Yes 12.5mg Take 12.5 Univers tartrate 3-03 mg by ity of 12.5 mg 23:00: mouth 2 [place] 52 (two) Medical times Branch daily. MULTIVITAMI 2020-0 Yes Take by Un mel N ORAL 3-03 mouth. ity of 23:00: [place] [address] Medical Branch thiamine 2020-0 Yes 100mg Take 100 Univ ers (VITAMIN 3-03 mg by ity of B-1) 100 mg 23:00: mouth [place] tablet 52 daily. Medical Branch aspirin 81 2020-0 Yes 81mg Take 81 mg U nivers mg chewable 3-03 by mouth ity of tablet 23:00: daily. [place] [address] Medical Branch atorvastati 2020-0 Yes 40mg Take 40 mg Univers n 40 mg 3-03 by mouth ity of tablet 23:00: at [place] [address] bedtime. Medical Branch NaCl 0.9% 2020-0 Yes [...] by ity of mEq packet 23:00: mouth [place] 52 daily. Medical Branch Cholecalcif 2020-0 Yes Take by Un mel ann, 3-03 mouth. ity of Vitamin D3, 23:00: [place] 2,000 unit 52 Medical capsule Branch metoprolol 2020-0 Yes 12.5mg Take 12.5 Univers tartrate 3-03 mg by ity of 12.5 mg 23:00: mouth 2 [place] [address] (two) Medical times Branch daily. MULTIVITAMI 2020-0 Yes Take by Un mel N ORAL 3-03 mouth. ity of 23:00: [place] [address] Medical Branch thiamine 2020-0 Yes 100mg Take 100 Univ ers (VITAMIN 3-03 mg by ity of B-1) 100 mg 23:00: mouth [place] tablet 52 daily. Medical Branch aspirin 81 2020-0 Yes 81mg Take 81 mg U nivers mg chewable 3-03 by mouth ity of tablet 23:00: daily. [place] [address] Medical Branch atorvastati 2020-0 Yes 40mg Take 40 mg Univers n 40 mg 3-03 by mouth ity of tablet 23:00: at [place] [address] bedtime. Medical Branch NaCl 0.9% 2020-0 Yes [...] by ity of mEq packet 23:00: mouth [place] 52 daily. Medical Branch Cholecalcif 2020-0 Yes Take by Un mel ann, 3-03 mouth. ity of Vitamin D3, 23:00: [place] 2,000 unit 52 Medical capsule Branch metoprolol 2020-0 Yes 12.5mg Take 12.5 Univers tartrate 3-03 mg by ity of 12.5 mg 23:00: mouth 2 [place] [address] (two) Medical times Branch daily. MULTIVITAMI 2020-0 [...] by mouth ity of tablet 23:00: daily. [place] [address] Medical Branch atorvastati 2020-0 Yes 40mg Take 40 mg Univers n 40 mg 3-03 by mouth ity of tablet 23:00: at [place] [address] bedtime. Medical Branch NaCl 0.9% 2020-0 Yes [...] by ity of mEq packet 23:00: mouth [place] 52 daily. Medical Branch Cholecalcif 2020-0 Yes [...] N ORAL 3-03 mouth. ity of 23:00: [place] 52 Medical Branch thiamine 2020-0 Yes 100mg Take 100 Univ ers (VITAMIN 3-03 mg by ity of B-1) 100 mg 23:00: mouth [place] tablet 52 daily. Medical Branch aspirin 81 2020-0 Yes 81mg Take 81 mg U nivers mg chewable 3-03 by mouth ity of tablet 23:00: daily. [address] Branch atorvastati 2019-0 Yes 40mg Take 40 mg Univers n 40 mg 3-03 by mouth ity of tablet 23:00: at [place] [address] bedtime. Medical Branch NaCl 0.9% 2019-0 Yes [...] First dose [place] mg 00 on [facility] 01/16/20 at Branch 2100, Until Discontinu ed, Routine ranolazine 2019-0 2020- No [id number] 500mg Take 1 [facility] 500 mg 12 01-16- tablet by ity of hr tablet 00:00: 04:59 mouth [place] 00 :00 every 12 Medical (twelve) Branch hours for 30 days. ranolazine 2020-0 2020- No [id number] 500mg Take 1 [facility] 500 mg 12 01-16 04- tablet by ity of hr tablet 00:00: 04:59 mouth [place] 00 :00 every 12 Medical (twelve) Branch hours for 30 days. ranolazine 2020-0 2020- No [id number] 500mg Take 1 [facility] 500 mg 12 01-16 04-03 tablet by ity of hr tablet 00:00: 04:59 mouth [place] 00 :00 every 12 Medical (twelve) Branch hours for 30 days. ranolazine 2020-0 2020- No [id number] 500mg Take 1 [facility] 500 mg 01-16 04-03 tablet by ity of hr tablet 00:00: 04:59 mouth [place] 00 :00 every 12 Medical (twelve) Branch hours for 30 days. ranolazine 2019-0 Yes 500mg 500 mg, Uni vers (RANEXA) 12 -02 Oral, ity of hr tablet 22:30: Q12H, [place] 500 mg 00 First dose Medical on [facility] 01/16/20 at 1630, Until Discontinu ed, Routine insulin 2019-0 Yes 30U 30 Units, Unive rs glargine 3-02 Subcutaneo ity o f (LANTUS 15:00: [place], DAILY, [place] U-100) 00 First dose Medical injection on [facility] 30 Units 01/16/20 at 0900, Until Discontinu ed furosemide 2020-0 Yes 40mg 40 mg, Unive rs (LASIX) 01-15 Oral, ity of tablet 40 15:00: DAILY, [place] mg 00 First dose Medical on [facility] 01/16/20 at 0900, Until Discontinu ed, Routine aspirin 2020-0 Yes 81mg 81 mg, Univers chewable 01-15 Oral, ity of tablet 81 15:00: DAILY, [place] mg 00 First dose Medical on [facility] 01/16/20 at 0900, Until Discontinu ed, Routine metoprolol 2020-0 Yes 12.5mg 12.5 mg, U nivers tartrate 01-15 Oral, BID, ity o f (LOPRESSOR) 14:00: First dose [place] tablet 12.5 00 on [facility] l mg 01/16/20 at Branch 0800, Until Discontinu ed, Routine Sliding 2020-0 Yes Subcutaneo Univ ers Scale 01-15 us, Q6H, ity of Insulin-Reg 12:00: First dose [place] ular + Fsbg 00 on [facility] Med[facility] l Testing 01/16/20 at Branch 0600, [...] IV ity of (D50W) 10:52: Push, PRN, [place] injection 33 Starting Medica l 25 mL [facility] 01/16/20 Branch at 0452, Until Discontinu ed, [...] IV Push, ity of (PF)) 07:55: Q6HPRN, [place] injection 4 01 Starting Medi birdie mg 01/16/20 Branch at 0155, Until Discontinu ed, Routine, Nausea and Vomiting (N/V) morpHINE 2019-0 2020- No 2mg 2 mg, Slow Un mel injection 2 01-15 03-03 IV Push, ity of mg 07:54: 07:53 Q6HPN, [place] 55 :55 Starting Medical [facility] 01/16/20 Branch at 0154, Until Tu01/17/20 at 0153, Routine, Pain (scale 7-10) traMADol 2019-0 2020- No 50mg 50 mg, Univer s (ULTRAM) 01-15 03-04 Oral, ity of tablet 50 07:54: 07:53 Q8HPRN, [facility] [place] 47 :47 Starting Medical [facility] 01/16/20 Branch at 0154, Until Thu01/18/20 at 0153, Routine, Pain (scale 4-6) acetaminoph 2019-0 Yes 650mg 650 mg, Un mel en 01-15 Oral, ity of (TYLENOL) 07:54: [facility], [place] tablet 650 44 Starting Medic al mg [facility] 01/16/20 Branch at 0154, Until Discontinu ed, Routine, Pain (scale 1-3) insulin 2020-0 2020- No 8U 8 Units, Unive rs regular 01-15 03- Slow IV ity of human 06:45: 05:40 Push, [place] (HUMULIN R) 00 :00 ONCE, 1 Medic [...] 01/15/20 at 2345, ADAMA furosemide 2018-11 Yes [id number] 40mg Take 1 Univers 40 mg 0-26 tablet by ity of tablet 00:00: mouth [place] 00 daily. Medical Branch furosemide 2018-11 Yes [id number] 40mg Take 1 Univers 40 mg 0-26 tablet by ity of tablet 00:00: mouth [place] 00 daily. Medical Branch furosemide 2018-11 Yes [id number] 40mg Take 1 Univers 40 mg 0-26 tablet by ity of tablet 00:00: mouth [place] 00 daily. Medical Branch furosemide 2018-11 Yes [id number] 40mg Take 1 Univers 40 mg 0-26 tablet by ity of tablet 00:00: mouth [place] 00 daily. Medical Branch furosemide 2018-11 2020- No [id number] 40mg Take 1 Univers 40 mg 0-26 04-17 tablet by ity of tablet 00:00: 00:00 mouth [place] 00 :00 daily. Medical Branch magnesium 2018-11 Yes [id number] 400mg Take 400 Univers oxide 420 0-23 mg by ity of mg Tab 00:00: mouth [place] 00 daily. Medical Branch magnesium 2018- Yes [id number] 400mg Take 400 Univers oxide 420 0-23 mg by ity of mg Tab 00:00: mouth [place] 00 daily. Medical Branch magnesium 2018- Yes [id number] 400mg Take 400 Univers oxide 420 0-23 mg by ity of mg Tab 00:00: mouth [place] 00 daily. Medical Branch magnesium 2018- Yes [id number] 400mg Take 400 Univers oxide 420 0-23 mg by ity of mg Tab 00:00: mouth [place] 00 daily. Medical Branch magnesium 2018- Yes [id number] 400mg Take 400 Univers oxide 420 0-23 mg by ity of mg Tab 00:00: mouth [place] 00 daily. Medical Branch magnesium 2018- Yes [id number] 400mg Take 400 Univers oxide 420 0-23 mg by ity of mg Tab 00:00: mouth [place] 00 daily. Medical Branch magnesium 2018- 2020- No [id number] 400mg Take 400 Univers oxide 420 0-23 04-22 mg by ity of mg Tab 00:00: 00:00 mouth [place] 00 :00 daily. Medical Branch Insulin 2018-0 Yes [id number] 30U inject 30 Univers Glargine 9-11 Units ity of 100 unit/mL 00:00: under the [place] (3 mL) 00 skin every Medical injection morning. Branch Insulin Yes [id number] 30U inject 30 Univers Glargine 9-11 Units ity of 100 unit/mL 00:00: under the [place] (3 mL) 00 skin every Medical injection morning. Branch Insulin Yes [id number] 30U inject 30 Univers Glargine 9-11 Units ity of 100 unit/mL 00:00: under the [place] (3 mL) 00 skin every Medical injection morning. Branch Insulin Yes [id number] 30U inject 30 Univers Glargine 9-11 Units ity of 100 unit/mL 00:00: under the [place] (3 mL) 00 skin every Medical injection morning. Branch Insulin Yes [id number] 30U inject 30 Univers Glargine 9-11 Units ity of 100 unit/mL 00:00: under the [place] (3 mL) 00 skin every Medical injection morning. Branch Insulin Yes [id number] 30U inject 30 Univers Glargine 9-11 Units ity of 100 unit/mL 00:00: under the [place] (3 mL) 00 skin every Medical injection morning. Branch Insulin Yes [id number] 30U inject 30 Univers Glargine 9-11 Units ity of 100 unit/mL 00:00: under the [place] (3 mL) 00 skin every Medical injection morning. Branch Insulin 2020- No [id number] 30U inject 30 Univers Glargine 9-11 04-22 [...] mg under ity of 15:26: the skin. [place] [address] Medical Branch Cholecalcif 0 Yes Take by Un mel ann, 5-10 mouth. ity of Vitamin D3, 15:26: [place] 2,000 unit 43 Medical capsule Branch metoprolol 0 Yes 12.5mg Take 12.5 Univers tartrate 5-10 mg by ity of 12.5 mg 15:26: mouth 2 [place] 43 (two) Medical times Branch daily. MULTIVITAMI 0 Yes Take by Un mel N ORAL 5-10 mouth. ity of 15:26: [place] [address] Medical Branch thiamine 0 Yes 100mg Take 100 Univ ers (VITAMIN 5-10 mg by ity of B-1) 100 mg 15:26: mouth [place] tablet 43 daily. Medical Branch aspirin 81 Yes 81mg Take 81 mg U nivers mg chewable 5-10 by mouth ity of tablet 15:26: daily. [place] [address] Medical Branch atorvastati 0 Yes 40mg Take 40 mg Univers n 40 mg 5-10 by mouth ity of tablet 15:26: at [place] 43 bedtime. Medical Branch furosemide 0 Yes 40mg Take 40 mg U nivers 40 mg 5-10 by mouth ity of tablet 15:26: daily. [place] [address] Medical Branch NaCl 0.9% 0 Yes 10mL [...] mg under ity of 15:26: the skin. [place] [address] Medical Branch Cholecalcif 0 Yes Take by Un mel ann, 5-10 mouth. ity of Vitamin D3, 15:26: [place] 2,000 unit 43 Medical capsule Branch metoprolol 0 Yes 12.5mg Take 12.5 Univers tartrate 5-10 mg by ity of 12.5 mg 15:26: mouth 2 [place] [address] (two) Medical times Branch daily. MULTIVITAMI 0 Yes Take by Un mel N ORAL 5-10 mouth. ity of 15:26: [place] [address] Medical Branch thiamine 2018-0 Yes 100mg Take 100 Univ ers (VITAMIN 5-10 mg by ity of B-1) 100 mg 15:26: mouth [place] tablet 43 daily. Medical Branch aspirin 81 0 Yes 81mg Take 81 mg U nivers mg chewable 5-10 by mouth ity of tablet 15:26: daily. [place] [address] Medical Branch atorvastati 0 Yes 40mg Take 40 mg Univers n 40 mg 5-10 by mouth ity of tablet 15:26: at [place] [address] bedtime. Medical Branch furosemide 0 Yes 40mg Take 40 mg U nivers 40 mg 5-10 by mouth ity of tablet 15:26: daily. [place] [address] Medical Branch NaCl 0.9% Yes 10mL Inject 10 Uni vers (NS) Soln 5-10 mL ity of 10 mL with 15:26: intravenou [place] sodium 43 sly once Medical chloride now. Branch 2.5 mEq/mL SolP 17.125 mEq insulin Yes [id number] 4U inject 4 U nivers lispro, 5-10 Units ity of human, 100 00:00: under the [place] unit/mL 00 skin 3 Medical injection (three) Branch times daily before meals. insulin 2018-0 Yes [id number] 4U inject 4 U nivers lispro, 5-10 Units ity of human, 100 00:00: under the [place] unit/mL 00 skin 3 Medical injection (three) Branch times daily before meals. insulin 2018-0 Yes [id number] 4U inject 4 U nivers lispro, 5-10 Units ity of human, 100 00:00: under the [place] unit/mL 00 skin 3 Medical injection (three) Branch times daily before meals. insulin 2018-0 Yes [id number] 4U inject 4 U nivers lispro, 5-10 Units ity of human, 100 00:00: under the [place] unit/mL 00 skin 3 Medical injection (three) Branch times daily before meals. insulin 2018-0 Yes [id number] 4U inject 4 U nivers lispro, 5-10 Units ity of human, 100 00:00: under the [place] unit/mL 00 skin 3 Medical injection (three) Branch times daily before meals. insulin 2018-0 Yes [id number] 4U inject 4 U nivers lispro, 5-10 Units ity of human, 100 00:00: under the [place] unit/mL 00 skin 3 Medical injection (three) Branch times daily before meals. Insulin 2018-0 Yes [id number] 18U inject Uni vers Glargine 5-10 18-24 ity of 100 unit/mL 00:00: Units [place] (3 mL) 00 under the Medical injection skin every Bran ch morning. insulin 2018-0 Yes [id number] 4U inject 4 U nivers lispro, 5-10 Units ity of human, 100 00:00: under the [place] unit/mL 00 skin 3 Medical injection (three) Branch times daily before meals. insulin 2018-0 Yes [id number] 4U inject 4 U nivers lispro, 5-10 Units ity of human, 100 00:00: under the [place] unit/mL 00 skin 3 Medical injection (three) Branch times daily before meals. insulin 2018-0 Yes [id number] 4U inject 4 U nivers lispro, 5-10 Units ity of human, 100 00:00: under the [place] unit/mL 00 skin 3 Medical injection (three) Branch times daily before meals. insulin 2018-0 Yes [id number] 4U inject 4 U nivers lispro, 5-10 Units ity of human, 100 00:00: under the [place] unit/mL 00 skin 3 Medical injection (three) Branch times daily before meals. insulin 2018-0 Yes [id number] 4U inject 4 U nivers lispro, 5-10 Units ity of human, 100 00:00: under the [place] unit/mL 00 skin 3 Medical injection (three) Branch times daily before meals. insulin 2020- No [id number] 4U inject 4 Univers lispro, 5-10 05-07 Units ity of human, 100 00:00: 00:00 under the [place] unit/mL 00 :00 skin 3 Medical injection (three) Branch times daily before meals. insulin 2020- No [id number] 4U inject 4 Univers lispro, 5-10 05-07 Units ity of human, 100 00:00: 00:00 under the [place] unit/mL 00 :00 skin 3 Medical injection (three) Branch times daily before meals. Insulin 2019- No [id number] 18U inject Un mel Glargine 5- 09-11 18-24 ity of 100 unit/mL 00:00: 00:00 [place] (3 mL) 00 :00 under the Medical injection skin every Bran ch morning. folic Yes Take by Univers acid/vit B 3-08 mouth. ity of complex and 16:39: [facility] ( 29 Medical COMPLEX-VIT Branch RAZA C-FOLIC ACID ORAL) potassium Yes 20meq Take 20 Univ ers chloride 20 3-08 mEq by ity of mEq packet 16:39: mouth [place] 29 daily. Medical Branch folic Yes Take by Univers acid/vit B 3-08 mouth. ity of complex and 16:39: [place] C ( 29 Medical COMPLEX-VIT Branch RAZA C-FOLIC ACID ORAL) potassium Yes 20meq Take 20 Univ ers chloride 20 3-08 mEq by ity of mEq packet 16:39: mouth [place] 29 daily. Medical Branch Potassium Potassium Yes [...] Yes Anneliese as [facility] Lasix Lasix Yes Anneliese [address] [facility] Isosorbide Isosorbide Yes Anneliese [address] [facility] [address] [facility] in the [facility] Lyrica Lyrica Yes [facility] [address] [facility] Immunizations Ordered Filled Immunization Date Status Comments [facility] e Immunization Name Name SARS-COV-2 COVID-19 2021-09-16 Completed Unive rsity of MODERNA VACCINE 00:00:00 [facility] [place] SARS-COV-2 COVID-19 2021-09-16 Completed Unive rsity of MODERNA VACCINE 00:00:00 [facility] [place] SARS-COV-2 COVID-19 2021-09-16 Completed Unive rsity of MODERNA VACCINE 00:00:00 [facility] [place] SARS-COV-2 COVID-19 2021-08-17 Completed Unive rsity of MODERNA VACCINE 00:00:00 [facility] [place] Influenza High Dose 2021-08-17 Completed Unive rsity of 00:00:00 [facility] SARS-COV-2 COVID-19 2021-08-17 Completed Unive rsity of MODERNA VACCINE 00:00:00 [facility] [place] Influenza High Dose 2021-08-17 Completed Unive rsity of 00:00:00 [facility] SARS-COV-2 COVID-19 2021-08-17 Completed Unive rsity of MODERNA VACCINE 00:00:00 [facility] [place] Influenza High Dose 2021-08-17 Completed Unive rsity of 00:00:00 [facility] Zoster(Zostavax)( 2020-09-14 Completed Unive rsity of ingles) 00:00:00 [facility] Zoster(Zostavax)( 2020-09-14 Completed Unive rsity of ingles) 00:00:00 [facility] Zoster(Zostavax)( 2020-09-14 Completed Unive rsity of ingles) 00:00:00 [place] [facility] Influenza High Dose 2020-07-13 Completed Unive rsity of 00:00:00 [facility] Influenza High Dose 2020-07-13 Completed Unive rsity of 00:00:00 [facility] Influenza High Dose 2020-07-13 Completed Unive rsity of 00:00:00 [facility] Influenza High Dose 2019-09-15 Completed Unive rsity of 00:00:00 [facility] Influenza High Dose 2019-09-15 Completed Unive rsity of 00:00:00 [facility] Influenza High Dose 2019-09-15 Completed Unive rsity of 00:00:00 [facility] Influenza Virus 2018-09-09 Completed Universit y of Vaccine 00:00:00 [facility] Influenza Virus 2018-09-09 Completed Universit y of Vaccine 00:00:00 [facility] Influenza Virus 2018-09-09 Completed Universit y of Vaccine 00:00:00 [facility] Influenza Virus 2018-09-09 Completed Universit y of Vaccine 00:00:00 [facility] Influenza Virus 2018-09-09 Completed Universit y of Vaccine 00:00:00 [facility] Influenza Virus 2018-09-09 Completed Universit y of Vaccine 00:00:00 [facility] Influenza Virus 2018-09-09 Completed Universit y of Vaccine 00:00:00 [facility] Influenza Virus 2018-09-09 Completed Universit y of Vaccine 00:00:00 [facility] Influenza Virus 2018-09-09 Completed Universit y of Vaccine 00:00:00 [facility] Influenza Virus 2018-09-09 Completed Universit y of Vaccine 00:00:00 [facility] Influenza Virus 2018-09-09 Completed Universit y of Vaccine 00:00:00 [facility] Influenza Virus 2018-09-09 Completed Universit y of Vaccine 00:00:00 [facility] Influenza Virus 2018-09-09 Completed Universit y of Vaccine 00:00:00 [facility] Influenza Virus 2018-09-09 Completed Universit y of Vaccine 00:00:00 [facility] Influenza Virus 2018-09-09 Completed Universit y of Vaccine 00:00:00 [facility] Influenza Virus 2018-09-09 Completed Universit y of Vaccine 00:00:00 [facility] Influenza Virus 2018-09-09 Completed Universit y of Vaccine 00:00:00 [facility] Influenza Virus 2018-09-09 Completed Universit y of Vaccine 00:00:00 [facility] Influenza Virus 2018-09-09 Completed Universit y of Vaccine 00:00:00 [facility] Influenza Virus 2018-09-09 Completed Universit y of Vaccine 00:00:00 [facility] Influenza Virus 2018-09-09 Completed Universit y of Vaccine 00:00:00 [facility] Pneumococcal 2016-11-02 Completed University o f Polysaccharide, [...] blood 2021-11-02 17:17:00 109 mm[Hg] Univer sity [facility] Diastolic blood 2021-11-02 17:17:00 67 mm[Hg] Unive rsity [facility] Heart rate 2021-11-02 17:17:00 84 /min [facility] Body temperature 2021-11-02 17:17:00 36.44 Priyanka [facility] 2021-11-02 17:17:00 18 /min [facility] Oxygen saturation in 2021-11-02 17:17:00 95 /min [facility] Arterial blood by [facility] Pulse oximetry Branch Body weight 2021-11-02 09:17:00 79.969 kg [facility] BMI 2021-11-02 09:17:00 27.61 kg/m2 [facility] Body height 2021-10-31 05:46:00 170.2 cm [facility] Systolic blood 2021-04-25 22:36:00 118 mm[Hg] Univer sity of pressure [facility] Diastolic blood 2021-04-25 22:36:00 70 mm[Hg] Unive rsity of [facility] Heart rate 2021-04-25 22:36:00 68 /min Universi ty of [place] [facility] Respiratory rate 2021-04-25 22:36:00 18 /min Univ ersity of [place] [facility] Oxygen saturation in 2021-04-25 22:36:00 99 /min University of Arterial blood by [facility] birdie Pulse oximetry Branch Body temperature 2021-04-25 15:42:00 36.44 Priyanka Univ ersity of [place] [facility] Body weight 2021-04-25 15:42:00 81.647 kg Universi ty of [place] [facility] BMI 2021-04-25 15:42:00 27.37 kg/m2 [facility]i ty [facility] [place] [facility] Systolic blood 2020-06-26 10:00:00 124 mm[Hg] Univer sity of pressure [place] [facility] Diastolic blood 2020-06-26 10:00:00 78 mm[Hg] Unive rsity of pressure [place] [facility] Respiratory rate 2020-06-26 10:00:00 18 /min Univ ersity of [place] [facility] Oxygen saturation in 2020-06-26 10:00:00 98 /min University of Arterial blood by [facility] Pulse oximetry Branch Heart rate 2020-06-26 08:56:00 98 /min [facility]i ty [facility] [place] [facility] Body temperature 2020-06-26 08:56:00 37.17 Priyanka Univ ersity of [place] [facility] Body weight 2020-06-26 08:56:00 74.844 kg [facility]i ty [facility] [place] [facility] BMI 2020-06-26 08:56:00 25.09 kg/m2 [facility] [place] [facility] Systolic blood 2020-06-26 10:00:00 124 mm[Hg] Univer sity of pressure [place] [facility] Diastolic blood 2020-06-26 10:00:00 78 mm[Hg] Unive rsity of pressure [place] [facility] Respiratory rate 2020-06-26 10:00:00 18 /min Univ ersity of [place] [facility] Oxygen saturation in 2020-06-26 10:00:00 98 /min University of Arterial blood by [facility] birdie Pulse oximetry Branch Heart rate 2020-06-26 08:56:00 98 /min [facility]i ty [facility] [place] [facility] Body temperature 2020-06-26 08:56:00 37.17 Priyanka Univ ersity of [place] [facility] Body weight 2020-06-26 08:56:00 74.844 kg Universi ty [facility] [place] [facility] BMI 2020-06-26 08:56:00 25.09 kg/m2 [facility] [place] [facility] Systolic blood 2020-05-24 15:47:29 166 mm[Hg] Univer sity of pressure [place] [facility] Diastolic blood 2020-05-24 15:47:29 89 mm[Hg] Unive rsity of pressure [place] [facility] Heart rate 2020-05-24 15:47:29 86 /min Universi ty [facility] [place] [facility] Respiratory rate 2020-05-24 15:47:29 16 /min Univ ersity of [place] [facility] Oxygen saturation in 2020-05-24 15:47:29 97 /min University of Arterial blood by [place] [facility] birdie Pulse oximetry Branch Body temperature 2020-05-24 11:44:00 36.94 Priyanka Univ ersity of [place] [facility] Body height 2020-05-24 11:44:00 172.7 cm [facility]i [facility] [place] [facility] Body weight 2020-05-24 11:44:00 74.844 kg [facility]i ty [facility] [place] [facility] BMI 2020-05-24 11:44:00 25.09 kg/m2 [facility] [place] [facility] Systolic blood 2020-05-24 15:47:29 166 mm[Hg] Univer sity of pressure [place] [facility] Diastolic blood 2020-05-24 15:47:29 89 mm[Hg] Unive rsity of pressure [place] [facility] Heart rate 2020-05-24 15:47:29 86 /min [facility]i ty [facility] [place] [facility] Respiratory rate 2020-05-24 15:47:29 16 /min Univ ersity of [place] [facility] Oxygen saturation in 2020-05-24 15:47:29 97 /min University of Arterial blood by [place] [facility] birdie Pulse oximetry Branch Body temperature 2020-05-24 11:44:00 36.94 Priyanka Univ ersity of [place] [facility] Body height 2020-05-24 11:44:00 172.7 cm [facility]i ty [facility] [place] [facility] Body weight 2020-05-24 11:44:00 74.844 kg [facility]i ty [facility] [place] [facility] BMI 2020-05-24 11:44:00 25.09 kg/m2 [facility] [place] [facility] Systolic blood 2020-03-24 02:31:00 127 mm[Hg] Univer sity of pressure [place] [facility] Diastolic blood 2020-03-24 02:31:00 72 mm[Hg] Unive rsity of pressure [place] [facility] Heart rate 2020-03-24 02:31:00 69 /min [facility]i ty [facility] [place] [facility] Body temperature 2020-03-24 02:31:00 36.39 Priyanka Univ ersity of [place] [facility] Respiratory rate 2020-03-24 02:31:00 18 /min Univ ersity of [place] [facility] Oxygen saturation in 2020-03-24 02:31:00 97 /min University of Arterial blood by [place] [facility] birdie Pulse oximetry Branch Systolic blood 2020-03-23 21:35:00 100 mm[Hg] Univer sity of pressure [place] [facility] Diastolic blood 2020-03-23 21:35:00 59 mm[Hg] Unive rsity of pressure [place] [facility] Heart rate 2020-03-23 21:35:00 79 /min [facility]i ty [facility] [place] [facility] Body temperature 2020-03-23 21:35:00 36.78 Priyanka Univ ersity of [place] [facility] Respiratory rate 2020-03-23 21:35:00 18 /min Univ ersity of [place] [facility] Oxygen saturation in 2020-03-23 21:35:00 99 /min University of Arterial blood by [place] [facility] birdie Pulse oximetry Branch Body weight 2020-03-23 09:41:00 76.613 kg [facility]i ty [facility] [place] [facility] BMI 2020-03-23 09:41:00 26.45 kg/m2 [facility] [place] [facility] Body height 2020-03-23 03:43:00 170.2 cm [facility] [place] [facility] Systolic blood 2020-03-21 20:55:00 128 mm[Hg] Univer sity of pressure [place] [facility] Diastolic blood 2020-03-21 20:55:00 61 mm[Hg] Unive rsity of pressure [place] [facility] Heart rate 2020-03-21 20:55:00 75 /min [facility]i ty [facility] [place] [facility] Respiratory rate 2020-03-21 20:55:00 10 /min Univ ersity of [place] [facility] Oxygen saturation in 2020-03-21 20:55:00 98 /min University of Arterial blood by [place] [facility] birdie Pulse oximetry Branch Body temperature 2020-03-21 20:03:00 37.83 Priyanka Univ ersity of [place] [facility] Body height 2020-03-21 20:03:00 170.2 cm [facility] [place] [facility] Body weight 2020-03-21 20:03:00 76.204 kg [facility] [place] [facility] BMI 2020-03-21 20:03:00 26.31 kg/m2 [facility] [place] [facility] Systolic blood 2020-03-07 20:50:00 118 mm[Hg] Univer sity of pressure [place] [facility] Diastolic blood 2020-03-07 20:50:00 65 mm[Hg] Unive rsity of pressure [place] [facility] Heart rate 2020-03-07 20:50:00 85 /min [facility]i [facility] [place] [facility] Body temperature 2020-03-07 20:50:00 36.39 Priyanka Univ ersity of [place] [facility] Respiratory rate 2020-03-07 20:50:00 18 /min Univ ersity of [place] [facility] Oxygen saturation in 2020-03-07 20:50:00 95 /min University of Arterial blood by [place] [facility] birdie Pulse oximetry Branch Body height 2020-03-05 02:35:00 172.7 cm [facility] [place] [facility] Body weight 2020-03-05 02:35:00 73.483 kg [facility] [place] [facility] BMI 2020-03-05 02:35:00 24.63 kg/m2 [facility] [place] [facility] Systolic blood 2020-03-02 15:49:00 122 mm[Hg] Univer sity of pressure [place] [facility] Diastolic blood 2020-03-02 15:49:00 81 mm[Hg] Unive rsity of pressure [place] [facility] Heart rate 2020-03-02 15:49:00 89 /min [facility]i ty [facility] [place] [facility] Body temperature 2020-03-02 15:49:00 37.06 Priyanka Univ ersity of [place] [facility] Respiratory rate 2020-03-02 15:49:00 19 /min Univ ersity of [place] [facility] Oxygen saturation in 2020-03-02 15:49:00 96 /min University of Arterial blood by [place] [facility] birdie Pulse oximetry Branch Body height 2020-03-01 00:54:00 170.2 cm [facility] [place] [facility] Body weight 2020-03-01 00:54:00 76.975 kg [facility] [place] [facility] BMI 2020-03-01 00:54:00 26.58 kg/m2 [facility] [place] [facility] Systolic blood 2020-01-17 21:08:00 116 mm[Hg] Univer sity of pressure [facility] Diastolic blood 2020-01-17 21:08:00 78 mm[Hg] Unive [email or web address] of [facility] Heart rate 2020-01-17 21:08:00 88 /min [facility] Body temperature 2020-01-17 21:08:00 36.72 Priyanka [facility] Respiratory rate 2020-01-17 21:08:00 18 /min [facility] [facility] O[facility] saturation in 2020-01-17 21:08:00 98 /min [facility] Arterial blood by [facility] Pulse oximetry [place] Body height 2020-01-16 06:21:00 172.7 cm [facility] Body weight 2020-01-16 04:35:00 83.462 kg [facility] BMI 2020-01-16 04:35:00 27.98 kg/m2 [facility] Procedures Procedure Date / Time Performing Clinician Source Performed EXTERNAL PROVIDER RECORDS 2021-11-19 06:01:00 Doctor Unassigned, [facility] Rafael Capo [facility] POCT GLUCOSE (AUTOMATED) 2021-11-02 22:49:00 Aida Shah [facility] POCT GLUCOSE (AUTOMATED) 2021-11-02 17:06:00 Aida Shah [facility] POCT GLUCOSE (AUTOMATED) 2021-11-02 13:30:00 Aida Shah [facility] TROPONIN I 2021-11-02 09:29:00 Alexandra Hdz [facility] BASIC METABOLIC PANEL 2021-11-02 09:29:00 Sridhar Gordon [facility] (NA, K, CL, CO2, GLUCOSE, Medica l Branch BUN, CREATININE, CA) CBC WITH DIFF 2021-11-02 09:29:[address] [facility] N-TERMINAL PRO-BNP 2021-11-02 09:29:00 [facility] POCT GLUCOSE (AUTOMATED) 2021-11-02 01:27:00 Aida Shah [facility] POCT GLUCOSE (AUTOMATED) 2021-11-01 17:37:[address] [facility] POCT GLUCOSE (AUTOMATED) 2021-11-01 13:40:[address] [facility] POCT GLUCOSE (AUTOMATED) 2021-11-01 01:10:[address] [facility] POCT GLUCOSE (AUTOMATED) 2021-10-31 22:28:00 Alyssa Aida Nilda [facility] POCT GLUCOSE (AUTOMATED) 2021-10-31 17:29:00 [facility] 2021-10-31 16:25:00 Alexandra Hdz [facility] TRANSTHORACIC ECHO (TTE) 2021-10-31 15:53:00 Alexandra Hdz [facility] COMPLETE W/ CONTRAST [facility] POCT GLUCOSE (AUTOMATED) 2021-10-31 13:39:00 Martha Drake [facility] TROPONIN I 2021-10-31 10:08:00 [facility]OLIC PANEL 2021-10-31 10:08:00 [facility] ([facility], K, CL, CO2, GLUCOSE, Medica l Branch BUN, CREATININE, CA) LIPID PANEL ([id number])(TOTAL 2021-10-31 10:08:00 Alexandra Hdz [facility] CHOLESTEROL, [facility] TRIGLYCERIDES, HDL) CBC WITH DIFF 2021-10-31 10:08:00 [facility] URINALYSIS 2021-10-31 10:08:00 [facility] N-TERMINAL PRO-BNP 2021-10-31 10:08:00 [facility] TROPONIN I 2021-10-31 06:17:00 [facility] VW 2021-10-31 01:30:[address] [facility] LIPASE 2021-10-31 01:25:[address] [facility] TROPONIN I 2021-10-31 01:25:[address] [facility] COMP. METABOLIC PANEL 2021-10-31 01:25:00 Martha Drake [facility] ([id number]) Medical Branch CBC WITH DIFF 2021-10-31 01:25:[address] [facility] GLYCOSYLATED HEMOGLOBIN 2021-10-31 01:25:00 Sarah Harrell [facility] (A1C) [facility] PROTHROMBIN TIME / INR 2021-10-31 01:25:00 Martha Drake [facility] ACTIVATED PARTIAL 2021-10-31 01:25:00 Martha Drake [facility]MINAL [facility]-BNP 2021-10-31 01:25:00 Martha Drake [facility] COVID-19 (ID NOW RAPID 2021-10-31 01:25:00 Martha Drake [facility] TESTING) Medical Branch LAB ONLY COVID 2021-10-31 01:25:00 Martha Drake [facility] INTERPRETATION [facility] HB ECG ROUTINE & RHYTHM 2021-10-31 01:20:03 Martha Drake [facility] STRIP [facility] URINALYSIS 2021-04-25 21:01:00 Nallely Zhao [facility] XR LUMBAR SPINE 2 VW 2021-04-25 18:41:[address] [facility] XR HIPS 2 VW LEFT 2021-04-25 18:41:00 Nallely Zhao [facility] CONSENT/REFUSAL FOR 2021-04-25 15:43:06 Doctor Unassigned, [facility] DIAGNOSIS AND TREATMENT Rafael Capo [facility] CT CERVICAL SPINE WO 2020-06-26 09:35:01 Martha Drake [facility] CONTRAST [facility] CT LUMBAR SPINE WO 2020-06-26 09:35:01 Martha Drake [facility] CT THORACIC SPINE WO 2020-06-26 09:35:01 Martha Drake [facility] CONTRAST [facility] UNILATERAL DUPLEX SCAN OF 2020-05-24 14:53:40 [facility] Medical [facility] XR ANKLE 3+ VW LEFT 2020-05-24 13:22:26 Charanjit Heck [facility] HEPATIC FUNCTION PANEL 2020-05-24 13:13:00 Charanjit Heck [facility] ([id number]) (ALB,T.PRO,BILI Medical Branch T,BU/BC,ALT,AST,ALK PHOS) BASIC METABOLIC PANEL 2020-05-24 13:13:00 Charanjit Heck [facility] (NA, K, CL, CO2, GLUCOSE, Medica l Branch BUN, CREATININE, CA) CBC WITH DIFFERENTIAL 2020-05-24 13:13:00 Charanjit Heck [facility] PROTHROMBIN TIME / INR 2020-05-24 13:13:00 Char[facility]jit [facility] ACTIVATED PARTIAL 2020-05-24 13:13:00 Charanjit Heck [facility] NOTICE OF PRIVACY 2020-05-24 11:38:26 Doctor Unassigned, [facility] PRACTICES Rafael Capo [facility] [place] CONSENT/REFUSAL FOR 2020-05-24 11:35:52 Doctor Unacassie, [facility] DIAGNOSIS AND TREATMENT Rafael Capo [facility] POCT GLUCOSE (AUTOMATED) 2020-03-23 22:32:00 Jamel Flores [facility] POCT GLUCOSE (AUTOMATED) 2020-03-23 18:07:00 Jamel Flores [facility] POCT GLUCOSE (AUTOMATED) 2020-03-23 14:57:[address] [facility] ECHO ROUTINE W/DOPPLER 2020-03-23 13:33:57 Tereza Cano [facility] COLOR [facility] EKG-12 LEAD 2020-03-23 12:56:59 Jamel Flores [facility] MAGNESIUM 2020-03-23 11:15:00 Tereza Cano [facility] TROPONIN I 2020-03-23 11:15:00 Bodani, [facility] BASIC METABOLIC PANEL 2020-03-23 11:15:00 [facility] (NA, K, CL, CO2, GLUCOSE, Medica l Branch BUN, CREATININE, CA) PROTHROMBIN TIME / INR 2020-03-23 11:15:00 Tereza [facility] ACTIVATED PARTIAL 2020-03-23 11:15:00 Jerome [facility] EKG-12 LEAD 2020-03-23 07:51:19 Jamel Flores [facility] MAGNESIUM 2020-03-23 05:55:00 Jerome [facility] TROPONIN I 2020-03-23 05:55:00 Jerome [facility] BASIC METABOLIC PANEL 2020-03-23 05:55:00 Jerome [facility] (NA, K, CL, CO2, GLUCOSE, Medica l Branch BUN, CREATININE, CA) LIPID PANEL ([id number])(TOTAL 2020-03-23 05:55:00 Tereza Cano [facility] CHOLESTEROL, [facility] TRIGLYCERIDES, HDL) PROTHROMBIN TIME / INR 2020-03-23 02:55:00 [facility]ie [facility] ACTIVATED PARTIAL 2020-03-23 02:55:00 Babar [facility] XR CHEST 2 VW 2020-03-23 01:52:37 Esteban Singletary [facility] CORONAVIRUS COVID-19 2020-03-23 00:50:00 Esteban Singletary [facility] TESTING [facility] FERRITIN SERUM 2020-03-22 23:36:[facility] 2020-03-22 23:36:00 Esteban Singletary [facility] COMP. METABOLIC PANEL 2020-03-22 23:36:00 Esteban Singletary [facility] ([id number]) Medical Branch IRON PANEL 2020-03-22 23:36:00 Jerome [facility] CBC WITH DIFFERENTIAL 2020-03-22 23:36:00 Singletary, [facility] N-TERMINAL PRO-BNP 2020-03-22 23:36:00 Esteban Singletary [facility] EKG-12 LEAD 2020-03-22 23:08:53 Hayder [facility] EKG-12 LEAD 2020-03-22 23:08:15 Hayder [facility] XR CHEST 1 VW 2020-03-21 20:42:[address] [facility] LACTIC ACID WHOLE BLOOD 2020-03-21 20:38:[address] [facility] LIPASE 2020-03-21 20:19:[address] [facility] TROPONIN I 2020-03-21 20:19:[address] [facility] COMP. METABOLIC PANEL 2020-03-21 20:19:00 Myles Harry [facility] ([id number]) [facility] PROTHROMBIN TIME / INR 2020-03-21 20:19:00 Myles Harry [facility] N-TERMINAL PRO-BNP 2020-03-21 20:19:00 Myles Harry [facility] CORONAVIRUS COVID-19 2020-03-21 20:19:[address] [facility] EKG-12 LEAD 2020-03-21 20:11:[address] [facility] POCT GLUCOSE (AUTOMATED) 2020-03-07 20:56:[address] [facility] POCT GLUCOSE (AUTOMATED) 2020-03-07 15:34:[address] [facility] POCT GLUCOSE (AUTOMATED) 2020-03-07 12:56:[address] [facility] URIC ACID 2020-03-07 10:14:[address] [facility] TROPONIN I 2020-03-07 10:14:00 Lulu Harris [place] [facility] BASIC METABOLIC PANEL 2020-03-07 10:14:00 Sarah Harrell [facility] (NA, K, CL, CO2, GLUCOSE, Medica l Branch BUN, CREATININE, CA) CBC WITH DIFFERENTIAL 2020-03-07 10:14:00 Julio Cesar [facility] N-TERMINAL PRO-BNP 2020-03-07 10:14:00 Lulu Harris [facility] POCT GLUCOSE (AUTOMATED) 2020-03-06 21:16:00 Edionrosalio [facility] POCT GLUCOSE (AUTOMATED) 2020-03-06 16:10:00 Edionrosalio [facility] POCT GLUCOSE (AUTOMATED) 2020-03-06 12:38:00 Edconsuelo [facility] TROPONIN I 2020-03-06 08:51:00 Lulu Harris [facility] BASIC METABOLIC PANEL 2020-03-06 08:51:00 [facility] (NA, K, CL, CO2, GLUCOSE, Medica l Branch BUN, CREATININE, CA) CBC WITH DIFFERENTIAL 2020-03-06 08:51:00 Julio Cesar [facility] POCT GLUCOSE (AUTOMATED) 2020-03-06 01:16:00 Edconsuelo [facility] TROPONIN I 2020-03-05 23:25:00 Edcosnuelo [facility] POCT GLUCOSE (AUTOMATED) 2020-03-05 21:14:00 Edconsuelo [facility] POCT GLUCOSE (AUTOMATED) 2020-03-05 16:39:00 Edionrosalio [facility] POCT GLUCOSE (AUTOMATED) 2020-03-05 12:47:00 Edionrosalio [facility] TROPONIN I 2020-03-05 09:50:00 [facility]IC METABOLIC PANEL 2020-03-05 09:50:00 [facility] (NA, K, CL, CO2, GLUCOSE, Medica l Branch BUN, CREATININE, CA) CBC WITH DIFFERENTIAL 2020-03-05 09:50:00 [facility] 2020-03-05 00:36:54 Bobo Urrutia [facility] EKG-12 LEAD 2020-03-05 00:31:03 Bobo Urrutia [facility] CORONAVIRUS COVID-19 2020-03-05 00:03:00 Charanjit Heck [facility] TESTING [facility] XR CHEST 1 VW 2020-03-04 23:58:59 Charanjit Heck [facility] LIPASE 2020-03-04 23:29:00 Charanjit Heck [facility] TROPONIN I 2020-03-04 23:29:00 Charanjit Heck [facility] HEPATIC FUNCTION PANEL 2020-03-04 23:29:00 Charanjit Heck [facility] ([id number]) (ALB,T.PRO,BILI Medical Branch T,BU/BC,ALT,AST,ALK PHOS) BASIC METABOLIC PANEL 2020-03-04 23:29:00 Charanjit Heck [facility] (NA, K, CL, CO2, GLUCOSE, Medica l Branch BUN, CREATININE, CA) CBC WITH DIFFERENTIAL 2020-03-04 23:29:00 Charanjit Heck [facility] PROTHROMBIN TIME / INR 2020-03-04 23:29:00 Charanjit [facility] ACTIVATED PARTIAL 2020-03-04 23:29:00 Charanjit Heck [facility] N-TERMINAL PRO-BNP 2020-03-04 23:29:00 Charanjit Heck [facility] EKG-12 LEAD 2020-03-04 23:15:42 Charanjit Heck [facility] EKG-12 LEAD 2020-03-04 23:10:23 Charanjit Heck [facility] EMERGENCY DEPARTMENT 2020-03-04 05:01:00 Doctor Unassigned, [facility] DOCUMENTS Rafael Capo [facility] POCT GLUCOSE (AUTOMATED) 2020-03-02 15:52:[address] [facility] POCT GLUCOSE (AUTOMATED) 2020-03-02 12:39:[address] [facility] MAGNESIUM 2020-03-02 08:57:00 Carolyn, [facility] BASIC METABOLIC PANEL 2020-03-02 08:57:00 Carolyn [facility] (NA, K, CL, CO2, GLUCOSE, Medica l Branch BUN, CREATININE, CA) N-TERMINAL PRO-BNP 2020-03-02 08:57:[address] [facility] POCT GLUCOSE (AUTOMATED) 2020-03-01 20:39:[address] [facility] MAGNESIUM 2020-03-01 08:43:00 [facility] 2020-03-01 08:43:00 Carolyn [facility] BASIC METABOLIC PANEL 2020-03-01 08:43:00 Lulu Harris [facility] (NA, K, CL, CO2, GLUCOSE, Medica l Branch BUN, CREATININE, CA) CBC WITH DIFFERENTIAL 2020-03-01 08:43:00 Steven [facility] N-TERMINAL PRO-BNP 2020-03-01 08:43:[address] [facility] VITAMIN B12, LEVEL 2020-03-01 03:49:[address] [facility] FOLATE 2020-03-01 03:49:00 Carolyn [facility] SEDIMENTATION RATE 2020-03-01 03:49:[address] [facility] POCT GLUCOSE (AUTOMATED) 2020-03-01 03:39:[address] [facility] PHOSPHORUS 2020-03-01 02:28:00 Steven [facility] URIC ACID 2020-03-01 02:28:00 Carolyn [facility] TROPONIN I 2020-03-01 02:28:00 Carolyn [facility] HEPATIC FUNCTION PANEL 2020-03-01 02:28:00 Carolyn alek [facility] ([id number]) (ALB,T.PRO,BILI Medical Branch T,BU/BC,ALT,AST,ALK PHOS) PROTHROMBIN TIME / INR 2020-03-01 02:28:00 [facility] N-TERMINAL PRO-BNP 2020-03-01 02:28:00 Lulu Harris [facility] PROCALCITONIN 2020-03-01 02:28:00 Carolyn [facility] EKG-12 LEAD 2020-03-01 01:54:29 Carolyn [facility] EKG-12 LEAD 2020-02-29 23:16:21 Bobo Urrutia [facility] XR CHEST 1 VW COVID 2020-02-29 23:14:25 Bobo Urrutia [facility] EKG-12 LEAD 2020-02-29 23:13:50 Bobo Urrutia [facility] LACTIC ACID WHOLE BLOOD 2020-02-29 22:21:00 Bobo Urrutia [facility] CORONAVIRUS COVID-19 2020-02-29 22:20:00 Bobo Urrutia [facility] CREATINE KINASE 2020-02-29 22:14:00 Carolyn [facility] URIC ACID 2020-02-29 22:14:00 Carolyn [facility] LIPASE 2020-02-29 22:14:00 Bobo Urrutia [facility] MAGNESIUM 2020-02-29 22:14:00 Carolyn [facility] TROPONIN I 2020-02-29 22:14:00 Bobo Urrutia [facility] THYROID STIMULATING 2020-02-29 22:14:00 Carolyn [facility] HORMONE [facility] BASIC METABOLIC PANEL 2020-02-29 22:14:00 Bobo Urrutia [facility] (NA, K, CL, CO2, GLUCOSE, Medica l Branch BUN, CREATININE, CA) CBC WITH DIFFERENTIAL 2020-02-29 22:14:00 Bobo Urrutia [facility] GLYCOSYLATED HEMOGLOBIN 2020-02-29 22:14:00 Ivory Leon [facility] (A1C) [facility] N-TERMINAL PRO-BNP 2020-02-29 22:14:00 Ivory Leon [facility] EKG-12 LEAD 2020-02-29 21:59:12 Bobo Urrutia [facility] EKG-12 LEAD 2020-02-29 21:48:49 Bobo Urrutia [facility] EMERGENCY DEPARTMENT 2020-02-29 05:01:00 Doctor Unassigned, [facility] DOCUMENTS Rafael Capo [facility] POCT GLUCOSE (AUTOMATED) 2020-01-17 18:15:00 Edconsuelo [facility] TROPONIN I 2020-01-17 16:31:00 Julio Cesar [facility] ACTIVATED PARTIAL 2020-01-17 16:31:00 Carolyn [facility] POCT GLUCOSE (AUTOMATED) 2020-01-17 11:56:00 Julio Cesar [facility] TROPONIN I 2020-01-17 09:52:00 Julio Cesar [facility] BASIC METABOLIC PANEL 2020-01-17 09:52:00 [facility] (NA, K, CL, CO2, GLUCOSE, Medica l Branch BUN, CREATININE, CA) CBC WITH DIFFERENTIAL 2020-01-17 09:52:00 [facility]IVATED PARTIAL 2020-01-17 09:52:00 [facility] PO[facility] GLUCOSE (AUTOMATED) 2020-01-16 23:59:00 Julio Cesar [facility] EKG-12 LEAD 2020-01-16 22:15:50 Julio Cesar [facility] TROPONIN I 2020-01-16 20:04:00 Julio Cesar [facility] ACTIVATED PARTIAL 2020-01-16 20:04:00 Ayo Scruggs [facility] POCT GLUCOSE (AUTOMATED) 2020-01-16 17:05:00 Julio Cesar [facility] POCT GLUCOSE (AUTOMATED) 2020-01-16 13:38:00 Edconsuelo [facility] TROPONIN I 2020-01-16 11:11:00 Julio Cesar [facility] LIPID PANEL ([id number])(TOTAL 2020-01-16 11:11:00 Julio Cesar [facility] TRIGLYCERIDES, HDL) ACTIVATED PARTIAL 2020-01-16 11:11:00 Julio Cesar [facility] CRITICAL CARE 2020-01-16 05:48:18 Charanjit Heck [facility] XR CHEST 1 VW 2020-01-16 04:46:44 Charanjit Heck [facility] TROPONIN I 2020-01-16 04:38:00 Umang Charanjit [facility] HEPATIC FUNCTION PANEL 2020-01-16 04:38:00 Charanjit Heck [facility] ([id number]) (ALB,T.PRO,BILI Medical Branch T,BU/BC,ALT,AST,ALK PHOS) BASIC METABOLIC PANEL 2020-01-16 04:38:00 Umang Charanjit [facility] (NA, K, CL, CO2, GLUCOSE, Medica l Branch BUN, CREATININE, CA) CBC WITH DIFFERENTIAL 2020-01-16 04:38:00 Umang Charanjit [facility] GLYCOSYLATED HEMOGLOBIN 2020-01-16 04:38:00 [facility] PROTHROMBIN TIME / INR 2020-01-16 04:38:00 Charanjit [facility] ACTIVATED PARTIAL 2020-01-16 04:38:00 Umang [facility] N-TERMINAL PRO-BNP 2020-01-16 04:38:00 Charanjit Heck [facility] EKG-12 LEAD 2020-01-16 04:37:48 Umang Charanjit [facility] EKG-12 LEAD 2020-01-16 04:35:35 Umang Charanjit [facility] AUTHORIZATION FOR RELEASE 2019-07-12 05:01:00 Doctor Unassigned, [facility] Rafael Capo [facility] Encounters Start End Encounter Admission Attending Care Care Encounter Source Date/Time Date/Time Type Type Clinicians Facility Department ID 2021-12-16 Inpatient SERA Villavicencio [id number] [facility] 11:30:00 Jim [facility] 2021-12-16 Outpatient STLMLC STLMLC [id number] 09[facility]19[facility] 2021-12-11 Outpatient Lester, STLMLC STLMLC [id number] 14:38:21 Anneliese [facility] 2021-12-11 Outpatient Lester, STLMLC STLMLC [id number] 11:50:18 [facility] 2021-09-16 Emergency [facility] [id number] Univers 00:23:34 ity [facility] 2021-09-13 Emergency [facility] [id number] [facility] Emergency [facility] [id number] Univers 05:40:48 [facility] 2021-12-25 2021-12-25 Inpatient ATTAR, [facility] [id number] [place] 00:00:00 00:00:00 [address] 2021-12-19 2021-12-25 Inpatient LAUREN, [facility] [id number] [place] 00:00:00 00:00:00 JAYSON [address] 2021-12-24 2021-12-24 ambulatory STLMLC [facility]LMLC [id number] [facility] 2021-12-20 2021-12-20 Inpatient ATTAR, [facility] [id number] [place] 00:00:00 00:00:[address] 2021-12-17 2021-12-17 ambulatory STLMLC STLMLC [id number] [facility] 2021-12-16 2021-12-16 ambulatory STLMLC STLMLC [id number] [facility] 2021-11-19 2021-11-19 Jose Alejandro JONES [id number] Univers 00:00:00 00:00:00 Only Unassigned, ASHLEIGH [id number] ity of [facility] [id number] [facility] 009 Branch 2021-11-04 2021-11-04 Transition SHAREE Maria [id number] Univers 00:00:00 00:00:00 of Care Supa GREW[place] [id number] [id number] [place] [id number] [facility] 403 Branch 2021-10-30 2021-11-02 Inpatient X ALYSSA [facility] ZEFERINO [id number] Univers 19:14:00 18:15:00 AIDA ity of [facility] 2021-10-30 2021-11-02 [facility] [id number]. [id number] Univers 19:14:00 18:15:00 Encounter Aida Shah [id number] [id number] [id number] [facility] 081 Branch 2021-05-17 2021-05-17 Letter PcpROBERT [id number] Univers 00:00:00 00:00:00 (Out) Patient ASHLEIGH [id number] it y of [place] Not HOSP[id number] A [id number] [facility] 019 Branch 2021-04-25 2021-04-25 Emergency Cece, TRAUMA [id number] Univers 10:43:00 17:38:00 [facility] [id number] i ty [place] [place] [id number] [facility] 014 Branch 2020-06-26 2020-06-26 Emergency [facility] [id number] 03:50:00 06:45:00 Martha Cortez [id number] [place] [id number] [place] [id number] [facility] 2020-06-26 2020-06-26 Emergency [facility], [facility] [id number] Univers 03:50:00 06:45:00 Martha Cortez [id number] ity of [place] [id number] [facility] [id number] [address] 2020-05-24 2020-05-24 Emergency Heck, [facility] [id number] 06:40:47 10:54:00 Charanjit Cortez [id number] [place] [id number] [place] [id number] [facility] 2020-05-24 2020-05-24 Emergency [facility] [id number] [facility] 06:40:47 10:54:00 Charanjit Cortez [id number] i ty of [place] [id number] [facility] [id number] [address] 2020-03-29 2020-03-29 Jamel Dunn [id number] 00:00:00 00:00:00 (Out) T [place] [id number] [facility] [id number] [id number] [facility] 2020-03-29 2020-03-29 Jamel Dunn [id number] Univers 00:00:00 00:00:00 (Out) T Ashleigh [id number] it y of [facility] [id number] [place] [id number] [address] 2020-03-26 2020-03-26 Transition Sharee George [id number] 00:00:00 00:00:00 of Care Sherrell Grewal [id number] [place] 4.2.7.2.686 [id number] [facility] 2020-03-26 2020-03-26 Transition Sharee George [id number] [facility] 00:00:00 00:00:00 of Care Sherrell Grewal [id number] it y of [place] [id number] [id number] [facility] 403 [place] 2020-03-22 2020-03-23 Emergency Sallie Eckert 1.2.840. 114 [id number] Univers 18:02:47 21:55:00 Jamel Flores [id number] ity of [facility] [id number] [place] [id number] [place] [id number] [place] 2020-03-22 2020-03-23 Outpatient X JAMEL FLORES [facility] [id number] Univers 18:02:47 21:55:00 ity of [facility] 2020-03-21 2020-03-21 Emergency [facility] [id number] Univers 15:02:08 17:16:00 Myles Sharon Cortez [id number] i ty of [id number] [id number] [address] 2020-03-21 2020-03-21 Emergency X [facility] [facility] ERT [id number] Univers 15:02:08 17:16:00 MYLES ity of [facility] 2020-03-13 2020-03-13 Outpatient Raju_P MMG MMG [id number] [place] 05:24:00 05:24:00 0428 Medical Group 2020-03-08 2020-03-08 Transition Sharee Cool 1.2.840.114 [id number] Univers 00:00:00 00:00:00 of Care Prema Grewal 350.1.13.10 i ty of [place].[address] [place] [id number] [facility] [address] 2020-03-04 2020-03-07 [facility] Charanjit Heck [facility] 1.2.840.1 [id number] Univers 18:01:05 18:00:00 Encounter Sarah Harrell 350.1.13.10 [place] [id number] [address] 2020-03-04 2020-03-07 Inpatient X JULIO CESAR [facility] [id number] Univers 18:01:05 18:00:00 SARAH leon [facility] 2020-03-03 2020-03-03 Transition Sharee Silva 1.2.840.114 [id number] Univers 00:00:00 00:00:00 of Care Isatu Grewal 350.1.13.10 it y of [place].[address] [place] [phone] [facility] [address] 2020-02-29 2020-03-02 [facility] Bobo Urrutia [facility] 1.2.840.11 [id number] Univers 16:53:09 12:18:00 Encounter Lulu Harris 350.1.13.10 [place] [id number] [facility] [address] 2020-02-29 2020-03-02 Inpatient X ARPITAUDREY [facility] [id number] Univers 16:53:09 12:18:00 LULU margarethazra [facility] 2020-02-15 2020-02-15 Outpatient [facility] [id number] Univers 11:30:00 11:30:00 THUYDANIELLA [facility] 2020-02-15 2020-02-15 [facility] 1.2.840.114 [id number] Univers 08:13:42 08:43:42 ne Visit Kathrin Cortez 350.1.13.10 [place] [facility] [phone] [place]ical [place] 220 [facility] 2020-01-18 2020-01-18 Transition Sharee Harvey 1.2.840.114 [id number] Univers 00:00:00 00:00:00 of Care Ana M Grewal 350.1.13.10 it [place] [id number] [address] 2020-01-15 2020-01-17 [facility] Charanjit Heck [facility] 1.2.840.1 14 [id number] Univers 22:33:37 16:58:00 Encounter Sarah Harrell 350.1.13.10 ity of [place] 4.2.7.2.686 [facility] [id number] [facility] [address] 2020-01-15 2020-01-17 Outpatient Marybel [facility]LLFORMERLY [facility] [id number] Univers 22:33:37 16:58:00 BRIGIDAY ity of [facility] 2019-10-07 2019-10-07 [facility] [id number] 10:48:00 10:48:00 [facility] Clin[facility] 2019-10-05 2019-10-05 [facility] [id number] 16:06:00 16:06:00 [facility] 2019-07-27 2019-07-27 [facility] 1.2.840.114 [id number] Univers 00:00:00 00:00[facility]00 [facility] [place] 350.1.13.10 i ty [facility] 4.2.7.2.686 [facility] [phone] [place] dical [facility] [address] [facility] [address] 2019-07-12 2019-07-12 [facility] [id number] 16:24:00 16:24:00 [facility] Outpati ent Clinics 2019-07-12 2019-07-12 Orders Doctor JONES 1.2.840.114 [id number] Univers 00:00:00 00:00:00 Only Unassigned, ASHLEIGH 350.1.13.10 ity of [place] Capo [facility] 4.2.7.2.[id number] 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 LEAD ROUTINE [id number] 22:37:57 Test Item Value Reference Range Interpretation Comments Lab Interpretation (test code = Abnormal 26185-1) [facility])2021-11-02 17:43:02 Test Item Value Reference Range Interpretation Comments POCT GLU (test code = 0186028747) 264 mg/dL 70-110 H Lab Interpretation (test code = Abnormal 86963-9) [facility] [id number] 15:07:47 Test Item Value Reference Interpretation Comments Range TROPONIN I (test 0.064 ng/mL See_Comment H [Automated code = 2722686230) message] The system which generated this result [...] biotin. Lab Interpretation Abnormal (test code = 97721-3) [facility] [id number] 15:04:26 Test Item Value Reference Range Interpretation Comments NT-proBNP (test code 800 pg/mL See_Comment H [Autom ated = 8580257502) message] The system which generated this result transmitted reference range : <=450. The reference range was not used to interpret this result as normal/abnormal . ALYSSA (test code = ALYSSA) Biotin has been reported to cause a negative bias, interpret results relative to patient's use of biotin. Lab Interpretation Abnormal (test code = 24929-7) [facility])2021-11-02 13:36:38 Test Item Value Reference Range Interpretation Comments POCT GLU (test code = 4385410992) 185 mg/dL 70-110 H Lab Interpretation (test code = Abnormal 89160-7) [facility] MET[facility]OLIC PANEL (NA, K, CL, CO2, GLUCOSE, BUN, CREATININE, CA)2021-11-02 10:26:43 Test Item Value Reference Range Interpretation Comments NA (test code = 136 mmol/L 135-145 3564302600) K (test code = 4.0 mmol/L 3.5-5.0 4875361782) CL (test code = 99 mmol/L 98-108 7833676333) CO2 TOTAL (test code = 27 mmol/L 23-31 5666545888) AGAP (test code = 2-16 3795646272) BUN (test code = 30 mg/dL 7-23 H 5909107612) GLUCOSE (test code = 165 mg/dL 70-110 H 0664097527) CREATININE (test code = 1.42 mg/dL 0.60-1.25 H 8031686378) CALCIUM (test code = 9.5 mg/dL 8.6-10.6 5814175289) eGFR (test code = mL/min/1.73m2 7224342895) ALYSSA (test code = ALYSSA) Association of [...] tests). Lab Interpretation Abnormal (test code = 10848-5) [facility] WITH [id number] 10:01:58 Test Item Value Reference Range Interpretation Comments WBC (test code = See_Comment [Automated 2436-2) message] The sy stem which generated this result transmitted reference range : 4.20 - 10.70 10*3/?L. The reference range was not used to interpret this result as normal/abnormal . RBC (test code = See_Comment L [Automated 187-8) message] The sy stem which generated this [...] RDW-SD (test code = 39.8 fL 38.5-51.6 53511-1) RDW-CV (test code = 11.5 % 12.1-15.4 L 788-0) PLT (test code = See_Comment [Automated 777-3) message] The sy stem which generated this result transmitted reference range : 150 - 328 10*3/ ?L. The reference r corey was not used to interpret this result as normal/abnormal . MPV (test code = 10.5 fL 9.8-13.0 35100-1) NRBC/100 WBC (test See_Comment [Automat ed code = 3335242977) message] The system which generated this result transmitted reference range : 0.0 - 10.0 /100 WBCs. The refer ence range was not u sed to interpret th is result as normal/abnormal . NRBC x10^3 (test code <0.01 See_Comment [Auto mated = 4128406746) message] The s ystem which generated this result transmitted reference range : 10*3/?L. The reference range was not used to interpret this result as normal/abnormal . GRAN MAT (NEUT) % 59.3 % (test code = 770-8) IMM GRAN % (test code 0.30 % = 7325513876) LYMPH % (test code = 25.0 % 736-9) MONO % (test code = 10.7 % 5905-5) EOS % (test code = 4.1 % 713-8) BASO % (test code = 0.6 % 706-2) GRAN MAT x10^3(ANC) 4.19 10*3/uL 1.99-6.95 (test code = 4464028034) IMM GRAN x10^3 (test <0.03 0.00-0.06 code = 5520033751) LYMPH x10^3 (test code 1.77 10*3/uL 1.09-3.23 = 731-0) MONO x10^3 (test code 0.76 10*3/uL 0.36-1.02 = 742-7) EOS x10^3 (test code = 0.29 10*3/uL 0.06-0.53 711-2) BASO x10^3 (test code 0.04 10*3/uL 0.01-0.09 = 704-7) Lab Interpretation Abnormal (test code = 21256-6) [facility] GLUCOSE (AUTOMATED)2021-11-02 01:29:56 Test Item Value Reference Range Interpretation Comments POCT GLU (test code = 9677177640) 167 mg/dL 70-110 H Lab Interpretation (test code = Abnormal 52593-2) [facility] GLUCOSE (AUTOMATED)2021-11-01 17:40:19 Test Item Value Reference Range Interpretation Comments POCT GLU (test code = 5502300458) 193 mg/dL 70-110 H Lab Interpretation (test code = Abnormal 11331-6) [facility] GLUCOSE (AUTOMATED)2021-11-01 13:44:28 Test Item Value Reference Range Interpretation Comments POCT GLU (test code = 0393041168) 200 mg/dL 70-110 H Lab Interpretation (test code = Abnormal 11834-2) [facility] GLUCOSE (AUTOMATED)2021-11-01 01:38:43 Test Item Value Reference Range Interpretation Comments POCT GLU (test code = 1074456842) 177 mg/dL 70-110 H Lab Interpretation (test code = Abnormal 48490-9) [facility] GLUCOSE (AUTOMATED)2021-10-31 22:39:43 Test Item Value Reference Range Interpretation Comments POCT GLU (test code = 3405737812) 174 mg/dL 70-110 H Lab Interpretation (test code = Abnormal 80829-0) [facility] GLUCOSE (AUTOMATED)2021-10-31 17:40:22 Test Item Value Reference Range Interpretation Comments POCT GLU (test code = 8539800764) 224 mg/dL 70-110 H Lab Interpretation (test code = Abnormal 68596-9) [facility] [id number] 17:14:58 Test Item Value Reference Interpretation Comments Range TROPONIN I (test 0.080 ng/mL See_Comment H [Automated code = 5945387549) message] The system which generated this result [...] biotin. Lab Interpretation Abnormal (test code = 78655-6) [facility]AL [id number] 15:14:03 Test Item Value Reference Range Interpretation Comments NT-proBNP (test code 474 pg/mL See_Comment H [Autom ated = 4173631861) message] The system which generated this result transmitted reference range : <=450. The reference range was not used to interpret this result as normal/abnormal . ALYSSA (test code = ALYSSA) Biotin has been reported to cause a negative bias, interpret results relative to patient's use of biotin. Lab Interpretation Abnormal (test code = 17419-1) [facility] HospitalLIPID PANEL (43076)(TOTAL CHOLESTEROL, TRIGLYCERIDES, HDL)2021-10-31 15:05:19 Test Item Value Reference Range Interpretation Comments CHOL (test code = 101 mg/dL 120-200 L 9123423747) HDL (test code = 36 mg/dL >40 L 7414380997) HDLC RATIO (test code = See_Comment [Au tomated message] 9062989075) The system [employer] generated this result transmit diamante reference range : <=5.0. The refe rence range was not u sed to interpret th is result as normal/abnormal . TRIG (test code = 143 mg/dL 30-170 9732055117) LDL CHOL (test code = 36 mg/dL See_Comment [Auto mated message] 66314-6) The system [employer] generated this result transmit diamante reference range : <=160. The refe rence range was not u sed to interpret th is result as normal/abnormal . VLDL (test code = 29 mg/dL 5-60 1973560059) Lab Interpretation (test Abnormal code = 44679-3) [facility] (AUTOMATED)2021-10-31 13:44:00 Test Item Value Reference Range Interpretation Comments POCT GLU (test code = 9529581523) 150 mg/dL 70-110 H Lab Interpretation (test code = Abnormal 15603-8) [facility] with [id number] 11:13:14 Test Item Value Reference Range Interpretation [...] RDW-SD (test code = 39.9 fL 38.5-51.6 93077-9) RDW-CV (test code = 11.8 % 12.1-15.4 L 788-0) PLT (test code = See_Comment [Automated 777-3) message] The sy stem which generated this result transmitted reference range : 150 - 328 10*3/ ?L. The reference r corey was not used to interpret this result as normal/abnormal . MPV (test code = 11.0 fL 9.8-13.0 14390-4) NRBC/100 WBC (test See_Comment [Automat ed code = 0487331806) message] The system which generated this result transmitted reference range : 0.0 - 10.0 /100 WBCs. The refer ence range was not u sed to interpret th is result as normal/abnormal . NRBC x10^3 (test code <0.01 See_Comment [Auto mated = 7470073253) message] The s [employer] which generated this result transmitted reference range : 10*3/?L. The reference range was not used to interpret this result as normal/abnormal . GRAN MAT (NEUT) % 64.3 % (test code = 770-8) IMM GRAN % (test code 0.30 % = 5575105166) LYMPH % (test code = 21.7 % 736-9) MONO % (test code = 10.0 % 5905-5) EOS % (test code = 3.1 % 713-8) BASO % (test code = 0.6 % 706-2) GRAN MAT x10^3(ANC) 4.35 10*3/uL 1.99-6.95 (test code = 8329470841) IMM GRAN x10^3 (test <0.03 0.00-0.06 code = 0394484607) LYMPH x10^3 (test code 1.47 10*3/uL 1.09-3.23 = 731-0) MONO x10^3 (test code 0.68 10*3/uL 0.36-1.02 = 742-7) EOS x10^3 (test code = 0.21 10*3/uL 0.06-0.53 711-2) BASO x10^3 (test code 0.04 10*3/uL 0.01-0.09 = 704-7) Lab Interpretation Abnormal (test code = 59453-5) [facility] HospitalWENDY [id number] 11:09:53 Test Item Value Reference Interpretation Comments Range TROPONIN I (test 0.101 ng/mL See_Comment H [Automated code = 8809554057) message] The system which generated this result [...] biotin. Lab Interpretation Abnormal (test code = 41974-9) [facility] Metabolic Panel (NA, K, CL, CO2, GLUCOSE, BUN, CREATININE, CA)2021-10-31 10:59:31 Test Item Value Reference Range Interpretation Comments NA (test code = 139 mmol/L 135-145 2005658718) K (test code = 4.1 mmol/L 3.5-5.0 2765597014) CL (test code = 103 mmol/L 98-108 6680462925) CO2 TOTAL (test code = 28 mmol/L 23-31 1710418426) AGAP (test code = 2-16 6709020880) BUN (test code = 43 mg/dL 7-23 H 9082407288) GLUCOSE (test code = 165 mg/dL 70-110 H 8930511087) CREATININE (test code = 1.68 mg/dL 0.60-1.25 H 5932055610) CALCIUM (test code = 9.6 mg/dL 8.6-10.6 8289542995) eGFR (test code = mL/min/1.73m2 5246205984) ALYSSA (test code = ALYSSA) Association of [...] tests). Lab Interpretation Abnormal (test code = 86362-8) [facility] HospitalGlycosylated Hemoglobin (A1C)2021-10-31 09:13:40 Test Item Value Reference Range Interpretation Comments HGB A1C (test code = 6.8 % 4.0-5.7 H 4548-4) ALYSSA (test code = ALYSSA) Reference RangesNormal: <5.7%Prediabetes: 5.7 - 6.4%Diabetes: > 6.5% Lab Interpretation (test Abnormal code = 84085-4) [id number] 06:48:18 Test Item Value Reference Interpretation Comments Range TROPONIN I (test 0.082 ng/mL See_Comment H [Automated code = 5943194778) message] The system which generated this result [...] biotin. Lab Interpretation Abnormal (test code = 89340-6) [facility] [id number] 02:09:48 Test Item Value Reference Interpretation Comments Range TROPONIN I (test 0.067 ng/mL See_Comment H [Automated code = 5575927709) message] The system which generated this result [...] biotin. Lab Interpretation Abnormal (test code = 58004-5) [facility]AL [id number] 02:06:31 Test Item Value Reference Range Interpretation Comments NT-proBNP (test code 318 pg/mL See_Comment [Autom ated = 2299539483) message] The system which generated this result transmitted reference range : <=450. The reference range was not used to interpret this result as normal/abnormal . ALYSSA (test code = ALYSSA) Biotin has been reported to cause a negative bias, interpret results relative to patient's use of biotin. Lab Interpretation Normal (test code = 22515-5) [facility]. METABOLIC PANEL (29292)2021-10-31 01:58:28 Test Item Value Reference Range Interpretation Comments NA (test code = 137 mmol/L 135-145 9598115407) K (test code = 4.1 mmol/L 3.5-5.0 9613961443) CL (test code = 101 mmol/L 98-108 8293941664) CO2 TOTAL (test code = 26 mmol/L 23-31 4485914071) AGAP (test code = 2-16 6878458569) BUN (test code = 46 mg/dL 7-23 H 2688595798) GLUCOSE (test code = 213 mg/dL 70-110 H 5097051913) CREATININE (test code = 1.96 mg/dL 0.60-1.25 H 1386243295) TOTAL BILI (test code = 0.9 mg/dL 0.1-1.1 1040876619) CALCIUM (test code = 9.7 mg/dL 8.6-10.6 0940595668) T PROTEIN (test code = 7.0 g/dL 6.3-8.2 7878011920) ALBUMIN (test code = 4.3 g/dL 3.5-5.0 0797550717) ALK PHOS (test code = 58 U/L 34-122 0989122492) ALTv (test code = 20 U/L 5-50 1742-6) AST(SGOT) (test code = 27 U/L 13-40 3765469376) eGFR (test code = mL/min/1.73m2 4324464377) ALYSSA (test code = ALYSSA) Association of [...] tests). Lab Interpretation Abnormal (test code = 58738-4) [facility] HospitalLIPASE, [id number] 01:57:48 Test Item Value Reference Range Interpretation Comments LIPASE (test code = 0940545000) 330 U/L 0-220 H Lab Interpretation (test code = Abnormal 66609-3) [facility] HospitalaPTT2021-12-16 01:55:04 Test Item Value Reference Range Interpretation Comments APTT Patient (test See_Comment [Automat ed code = 3173-2) message] The system which generated this result transmitted reference range : 23 - 38 Seconds . The reference range was not used to interpr et this result as normal/abnormal . ALYSSA (test code = ALYSSA) The [facility] patient population mean normal value for aPTT is 30 seconds. Lab Interpretation Normal (test code = 23278-5) [facility] HospitalPROTHROMBIN TIME / [id number] 01:53:08 Test Item Value Reference Range Interpretation [...] tions. Lab Interpretation (test Normal code = 45681-9) [facility] HospitalCBC WITH [id number] 01:45:44 Test Item Value Reference Range Interpretation Comments WBC (test code = See_Comment [Automated 6190-2) message] The sy stem which generated this result transmitted reference range : 4.20 - 10.70 10*3/?L. The reference range was not used to interpret this result as normal/abnormal . RBC (test code = See_Comment L [Automated 659-8) message] The sy stem which generated this [...] RDW-SD (test code = 39.1 fL 38.5-51.6 89772-5) RDW-CV (test code = 11.6 % 12.1-15.4 L 788-0) PLT (test code = See_Comment [Automated 777-3) message] The sy stem which generated this result transmitted reference range : 150 - 328 10*3/ ?L. The reference r corey was not used to interpret this result as normal/abnormal . MPV (test code = 10.4 fL 9.8-13.0 31906-2) NRBC/100 WBC (test See_Comment [Automat ed code = 2611879508) message] The system which generated this result transmitted reference range : 0.0 - 10.0 /100 WBCs. The refer ence range was not u sed to interpret th is result as normal/abnormal . NRBC x10^3 (test code <0.01 See_Comment [Auto mated = 2521514854) message] The s ystem which generated this result transmitted reference range : 10*3/?L. The reference range was not used to interpret this result as normal/abnormal . GRAN MAT (NEUT) % 62.1 % (test code = 770-8) IMM GRAN % (test code 0.30 % = 7489531083) LYMPH % (test code = 23.4 % 736-9) MONO % (test code = 10.8 % 5905-5) EOS % (test code = 2.9 % 713-8) BASO % (test code = 0.5 % 706-2) GRAN MAT x10^3(ANC) 4.14 10*3/uL 1.99-6.95 (test code = 4256144771) IMM GRAN x10^3 (test <0.03 0.00-0.06 code = 1168455072) LYMPH x10^3 (test code 1.56 10*3/uL 1.09-3.23 = 731-0) MONO x10^3 (test code 0.72 10*3/uL 0.36-1.02 = 742-7) EOS x10^3 (test code = 0.19 10*3/uL 0.06-0.53 711-2) BASO x10^3 (test code 0.03 10*3/uL 0.01-0.09 = 704-7) Lab Interpretation Abnormal (test code = 20467-0) [facility] HospitalURINALYSIS2021-06-10 21:15:48 Test Item Value Reference Range Interpretation Comments APPEARANCE (test code = Clear Clear 0222118821) COLOR (test code = Yellow Yellow 7142352515) PH (test code = 4.8-8.0 1180999203) SP GRAVITY (test code = 1.003-1.030 5247476972) GLU U QUAL (test code = 50 mg/dL Normal A 2869081998) BLOOD (test code = Negative Negative INTERFERE NCE FROM 4973166084) ASCORBIC ACID M AY CAUSE FALSE NEG ATIVE RESULT KETONES (test code = Negative Negative 9249353910) PROTEIN (test code = Negative Negative 2887-8) UROBILIN (test code = Normal Normal 9666838916) BILIRUBIN (test code = Negative Negative 8751455856) NITRITE (test code = Negative Negative 9888305466) LEUK JESS (test code = Negative Negative 6516538138) RBC/HPF (test code = See_Comment [Autom ated message] 6131852632) The system [employer] generated this result transmitted ref erence range: 0 - 3 HP F. The reference range was not used to int erpret this result as normal/abnormal . WBC/HPF (test code = See_Comment [Autom ated message] 7481438190) The system [employer] generated this result transmitted ref erence range: 0 - 5 HP F. The reference range was not used to int erpret this result as normal/abnormal . BACTERIA (test code = Negative Negative 7956980856) SQ EPITH (test code = <1 See_Comment [Auto mated message] 0339919221) The system [employer] generated this result transmitted ref erence range: <=2 HPF. The reference range was not used to int erpret this result as normal/abnormal . HYAL CAST (test code = See_Comment [Aut omated message] 3293864324) The system [employer] generated this result transmitted ref erence range: <=2 LPF. The reference range was not used to int erpret this result as normal/abnormal . Lab Interpretation (test Abnormal code = 65673-0) [facility]XR LUMBAR SPINE 2 [id number] 20:30:53 Impression: Postoperative changes. Degenerative changes. No [...] acute fracture or dislocation identified. Atherosclerotic calcifications. Ohmb, Radiant Results Inft User -04/25/2021 3:31 PM [...] acute bony abnormality identified.End of Report.RL: 3901 [facility] H[facility] 2 VW [id number] 20:24:52Impression: Postoperative changes. Degenerative changes. No acute [...] clinicalconcern MRI is available.End of Report.RL: 3901 [facility] CenterBasic Metabolic Panel (NA, K, CL, CO2, GLUCOSE, BUN, CREATININE, CA)2020-05-24 14:15:00 Test Item Value Reference Range Interpretation Comments NA (test code = 139 mmol/L 135-145 3247407712) K (test code = 4.1 mmol/L 3.5-5 5453194929) CL (test code = 104 mmol/L 98-108 1077693605) CO2 TOTAL (test code = 26 mmol/L 23-31 8586692757) AGAP (test code = 2-16 7340786769) BUN (test code = 22 mg/dL 7-23 0786786353) GLUCOSE (test code = 203 mg/dL 70-110 H 4399303447) CREATININE (test code = 1.40 mg/dL 0.6-1.25 H 2091864751) CALCIUM (test code = 9.1 mg/dL 8.6-10.6 4829179504) eGFR Calculation mL/min/1.73m2 (Non-) (test code = 8437628846) eGFR Calculation mL/min/1.73m2 () (test code = 9961967561) ALYSSA (test code = ALYSSA) Association of [...] tests). Lab Interpretation Abnormal (test code = 48670-8) [facility] Hospital[facility] Function Panel (ALB, T.PRO, BILI T, BU/BC, ALT, AST, ALK PHOS)2020-05-24 13:54:00 Test Item Value Reference Range Interpretation Comments TOTAL BILI (test code = 9294367448) 0.9 mg/dL 0.1-1.1 BILI UNCON (test code = 8238532881) 1.0 mg/dL 0.1-1.1 BILI CONJ (test code = 7659663014) 0.0 mg/dL 0-0.3 T PROTEIN (test code = 0272110888) 7.0 g/dL 6.3-8.2 ALBUMIN (test code = 8620511319) 4.2 g/dL 3.5-5 ALK PHOS (test code = 1174542585) 49 U/L 34-122 ALTv (test code = 1742-6) 17 U/L 5-50 AST(SGOT) (test code = 9707059583) 25 U/L 13-40 Lab Interpretation (test code = Normal 88987-4) [facility] 13:32:00 Test Item Value Reference Range Interpretation Comments APTT Patient (test See_Comment [Automat ed code = 3173-2) message] The system which generated this result transmitted reference range : 23 - 38 Seconds . The reference range was not used to interpr et this result as normal/abnormal . ALYSSA (test code = ALYSSA) The [facility] patient population mean normal value for aPTT is 30 seconds. Lab Interpretation Normal (test code = 99236-6) [facility] HospitalProthrombin Time (PT) / [id number] 13:30:00 Test Item Value Reference Range Interpretation [...] tions. Lab Interpretation (test Normal code = 85146-3) [facility] HospitalCBC WITH [id number] 13:27:00 Test Item Value Reference Range Interpretation [...] RDW-SD (test code = 42.6 fL 38.5-51.6 21197-5) RDW-CV (test code = 12.3 % 12.1-15.4 788-0) PLT (test code = See_Comment [Automated 777-3) message] The sy stem which generated this result transmitted reference range : 150 - 328 10*3/ ?L. The reference r corey was not used to interpret this result as normal/abnormal . MPV (test code = 9.9 fL 9.8-13 71648-1) NRBC/100 WBC (test See_Comment [Automat ed code = 0306718074) message] The system which generated this result transmitted reference range : 0.0 - 10.0 /100 WBCs. The refer ence range was not u sed to interpret th is result as normal/abnormal . NRBC x10^3 (test code <0.01 See_Comment [Auto mated = 5203867181) message] The s ystem which generated this result transmitted reference range : 10*3/?L. The reference range was not used to interpret this result as normal/abnormal . GRAN MAT (NEUT) % 55.1 % (test code = 770-8) IMM GRAN % (test code 0.20 % = 0193442869) LYMPH % (test code = 28.8 % 736-9) MONO % (test code = 11.3 % 5905-5) EOS % (test code = 3.5 % 713-8) BASO % (test code = 1.1 % 706-2) GRAN MAT x10^3(ANC) 3.11 10*3/uL 1.99-6.95 (test code = 7347624835) IMM GRAN x10^3 (test <0.03 0-0.06 code = 6469255419) LYMPH x10^3 (test code 1.63 10*3/uL 1.09-3.23 = 731-0) MONO x10^3 (test code 0.64 10*3/uL 0.36-1.02 = 742-7) EOS x10^3 (test code = 0.20 10*3/uL 0.06-0.53 711-2) BASO x10^3 (test code 0.06 10*3/uL 0.01-0.09 = 704-7) Lab Interpretation Abnormal (test code = 98642-6) [facility]XR ANKLE 3+ VW [id number] 13:25:58HISTORY: ?Pain. FINDINGS: AP, lateral, oblique views [...] No acute fracture or dislocation in left ankle.[facility] HospitalPOCT GLUCOSE (AUTOMATED)2020-03-23 22:34:00 Test Item Value Reference Range Interpretation Comments POCT GLU (test code = 5768937882) 173 mg/dL 70-110 H Lab Interpretation (test code = Abnormal 14567-8) [facility] GLUCOSE (AUTOMATED)2020-03-23 22:34:00 Test Item Value Reference Range Interpretation Comments POCT GLU (test code = 2745990407) 173 mg/dL 70-110 H Lab Interpretation (test code = Abnormal 10626-9) [facility] GLUCOSE (AUTOMATED)2020-03-23 18:12:00 Test Item Value Reference Range Interpretation Comments POCT GLU (test code = 165 mg/dL 70-110 H Notifi ed Provider [id number]) Lab Interpretation (test Abnormal code = 19147-6) [facility] GLUCOSE (AUTOMATED)2020-03-23 18:12:00 Test Item Value Reference Range Interpretation Comments POCT GLU (test code = 165 mg/dL 70-110 H Notifi ed Provider [id number]) Lab Interpretation (test Abnormal code = 19282-9) [facility] GLUCOSE (AUTOMATED)2020-03-23 15:04:00 Test Item Value Reference Range Interpretation Comments POCT GLU (test code = 114 mg/dL 70-110 H Notifi ed Provider [id number]) Lab Interpretation (test Abnormal code = 99763-3) [facility] GLUCOSE (AUTOMATED)2020-03-23 15:04:00 Test Item Value Reference Range Interpretation Comments POCT GLU (test code = 114 mg/dL 70-110 H Notifi ed Provider [id number]) Lab Interpretation (test Abnormal code = 55423-1) [facility] HospitalFERRITIN [id number] 13:23:00 Test Item Value Reference Range Interpretation Comments FERRITIN (test code = 139.0 ng/mL 18-464 5875110696) ALYSSA (test code = ALYSSA) Biotin has been reported to cause a negative bias, interpret results relative to patient's use of biotin. Lab Interpretation (test Normal code = 72638-2) [facility] HospitalFERRITIN [id number] 13:23:00 Test Item Value Reference Range Interpretation Comments FERRITIN (test code = 139.0 ng/mL 18-464 8621425260) ALYSSA (test code = ALYSSA) Biotin has been reported to cause a negative bias, interpret results relative to patient's use of biotin. Lab Interpretation (test Normal code = 25344-6) [facility] [id number] 12:53:00 Test Item Value Reference Range Interpretation Comments IRON (test code = 5404670113) 87 ug/dL 50-160 TIBC (test code = 6382201404) 385 ug/dL 250-410 % FE SAT (test code = 1310825356) 23 % 20-50 Lab Interpretation (test code = Normal 90449-8) [facility] [id number] 12:53:00 Test Item Value Reference Range Interpretation Comments IRON (test code = 3243903118) 87 ug/dL 50-160 TIBC (test code = 5976718531) 385 ug/dL 250-410 % FE SAT (test code = 9931000792) 23 % 20-50 Lab Interpretation (test code = Normal 99151-0) [place] [id number] 12:07:00 Test Item Value Reference Range Interpretation Comments APTT Patient (test code See_Comment [Au tomated message] = 3173-2) The system [employer] generated this result transmitted ref erence range: 26 - 36 Seconds. The reference range was not used to int erpret this result as normal/abnormal . Lab Interpretation (test Abnormal code = 38749-0) [facility] Test Item Value Reference Range Interpretation Comments APTT Patient (test code See_Comment [Au tomated message] = 3173-2) The system [employer] generated this result transmitted ref erence range: 26 - 36 Seconds. The reference range was not used to int erpret this result as normal/abnormal . Lab Interpretation (test Abnormal code = 29759-0) [facility] [id number] 11:57:00 Test Item Value Reference Range Interpretation Comments TROPONIN I (test 0.046 ng/mL See_Comment H [Automated code = 3061531089) message] The system which generated this result [...] ? Lab Interpretation Abnormal (test code = 84237-0) [facility] HospitalKATEJr [id number] 11:57:00 Test Item Value Reference Range Interpretation Comments TROPONIN I (test 0.046 ng/mL See_Comment H [Automated code = 7978396143) message] The system which generated this result [...] ? Lab Interpretation Abnormal (test code = 80070-0) [facility] (NA, K, CL, CO2, GLUCOSE, BUN, CREATININE, CA)2020-03-23 11:52:00 Test Item Value Reference Range Interpretation Comments NA (test code = 137 mmol/L 135-145 3006103733) K (test code = 4.1 mmol/L 3.5-5 8403789037) CL (test code = 102 mmol/L 98-108 2229410080) CO2 TOTAL (test code = 26 mmol/L 23-31 6395749904) AGAP (test code = 2-16 2783092703) BUN (test code = 18 mg/dL 7-23 3213908854) GLUCOSE (test code = 119 mg/dL 70-110 H 4793261267) CREATININE (test code = 1.14 mg/dL 0.6-1.25 2232816902) CALCIUM (test code = 9.1 mg/dL 8.6-10.6 5692176086) eGFR Calculation mL/min/1.73m2 (Non-) (test code = 0870145820) eGFR Calculation mL/min/1.73m2 () (test code = 2524574134) ALYSSA (test code = ALYSSA) Association of [...] tests). Lab Interpretation Abnormal (test code = 39079-9) [facility]MAGN[facility]UM2020-05-08 11:52:00 Test Item Value Reference Range Interpretation Comments MAGNESIUM (test code = 8587917578) 2.2 mg/dL 1.7-2.4 Lab Interpretation (test code = Normal 67963-5) [facility] METABOLIC PANEL (NA, K, CL, CO2, GLUCOSE, BUN, CREATININE, CA)2020-03-23 11:52:00 Test Item Value Reference Range Interpretation Comments NA (test code = 137 mmol/L 135-145 1827964251) K (test code = 4.1 mmol/L 3.5-5 0583170721) CL (test code = 102 mmol/L 98-108 5662488570) CO2 TOTAL (test code = 26 mmol/L 23-31 7450795743) AGAP (test code = 2-16 7395652508) BUN (test code = 18 mg/dL 7-23 5892680819) GLUCOSE (test code = 119 mg/dL 70-110 H 1511110595) CREATININE (test code = 1.14 mg/dL 0.6-1.25 2188657312) CALCIUM (test code = 9.1 mg/dL 8.6-10.6 2545739389) eGFR Calculation mL/min/1.73m2 (Non-) (test code = 0791878036) eGFR Calculation mL/min/1.73m2 () (test code = 6158584866) ALYSSA (test code = ALYSSA) Association of [...] tests). Lab Interpretation Abnormal (test code = 53854-2) [facility]2020-05-08 11:52:00 Test Item Value Reference Range Interpretation Comments MAGNESIUM (test code = 6547258074) 2.2 mg/dL 1.7-2.4 Lab Interpretation (test code = Normal 13769-6) [facility] HospitalProthrombin Time (PT) / [id number] 11:36:00 Test Item Value Reference Range Interpretation Comments PROTIME PATIENT (test See_Comment [Auto mated message] code = 5964-2) The system [employer] generated this result transmitted ref erence range: 10.1 - 1 2.6 Seconds. The re ference range was not u sed to interpret this result as normal/abnor mal. INR (test code = 6301-6) Nor mal INR <1.1; Warfarin Therap eutic range 2.0 to 3. 0 or 2.5 to 3.5, dep ending upon the indica tions. Lab Interpretation (test Normal code = 82235-4) [facility] HospitalPro[facility] Time (PT) / [id number] 11:36:00 Test Item Value Reference Range Interpretation [...] tions. Lab Interpretation (test Normal code = 90581-6) [facility] [id number] 06:38:00 Test Item Value Reference Range Interpretation Comments TROPONIN I (test 0.045 ng/mL See_Comment H [Automated code = 5671197558) message] The system which generated this result [...] ? Lab Interpretation Abnormal (test code = 87698-9) [facility] [id number] 06:38:00 Test Item Value Reference Range Interpretation Comments TROPONIN I (test 0.045 ng/mL See_Comment H [Automated code = 2258339019) message] The system which generated this result [...] ? Lab Interpretation Abnormal (test code = 64475-5) [facility] (NA, K, CL, CO2, GLUCOSE, BUN, CREATININE, CA)2020-03-23 06:29:00 Test Item Value Reference Range Interpretation Comments NA (test code = 137 mmol/L 135-145 6858889972) K (test code = 3.6 mmol/L 3.5-5 7575144895) CL (test code = 101 mmol/L 98-108 5215861145) CO2 TOTAL (test code = 27 mmol/L 23-31 1492623401) AGAP (test code = 2-16 0014840682) BUN (test code = 19 mg/dL 7-23 5588104807) GLUCOSE (test code = 153 mg/dL 70-110 H 7862949179) CREATININE (test code = 1.22 mg/dL 0.6-1.25 2299912333) CALCIUM (test code = 8.9 mg/dL 8.6-10.6 8924915667) eGFR Calculation mL/min/1.73m2 (Non-) (test code = 1230036692) eGFR Calculation mL/min/1.73m2 () (test code = 5612504550) ALYSSA (test code = ALYSSA) Association of [...] tests). Lab Interpretation Abnormal (test code = 23230-1) [facility]2020-05-08 06:29:00 Test Item Value Reference Range Interpretation Comments MAGNESIUM (test code = 2528554554) 1.7 mg/dL 1.7-2.4 Lab Interpretation (test code = Normal 27504-9) [facility] HospitalLIPID PANEL (30562)(TOTAL CHOLESTEROL, TRIGLYCERIDES, HDL)2020-03-23 06:29:00 Test Item Value Reference Range Interpretation Comments CHOL (test code = 106 mg/dL 120-200 L 5790870602) HDL (test code = 46 mg/dL >40 8307809061) HDLC RATIO (test code = See_Comment [Au tomated message] 1438002155) The system [employer] generated this result transmit diamante reference range : <=5.0. The refe rence range was not u sed to interpret th is result as normal/abnormal . TRIG (test code = 74 mg/dL 30-170 6444622423) LDL CHOL (test code = 45 mg/dL See_Comment [Auto mated message] 76471-0) The system [employer] generated this result transmit diamante reference range : <=160. The refe rence range was not u sed to interpret th is result as normal/abnormal . VLDL (test code = 15 mg/dL 5-60 9447530764) Lab Interpretation (test Abnormal code = 02422-9) [facility] METABOLIC PANEL (NA, K, CL, CO2, GLUCOSE, BUN, CREATININE, CA)2020-03-23 06:29:00 Test Item Value Reference Range Interpretation Comments NA (test code = 137 mmol/L 135-145 5513152738) K (test code = 3.6 mmol/L 3.5-5 7070708783) CL (test code = 101 mmol/L 98-108 4661710383) CO2 TOTAL (test code = 27 mmol/L 23-31 4179397344) AGAP (test code = 2-16 9056800268) BUN (test code = 19 mg/dL 7-23 2540728610) GLUCOSE (test code = 153 mg/dL 70-110 H 6031910121) CREATININE (test code = 1.22 mg/dL 0.6-1.25 7726799553) CALCIUM (test code = 8.9 mg/dL 8.6-10.6 0289770940) eGFR Calculation mL/min/1.73m2 (Non-) (test code = 8255392102) eGFR Calculation mL/min/1.73m2 () (test code = 5572102709) ALYSSA (test code = ALYSSA) Association of [...] tests). Lab Interpretation Abnormal (test code = 46404-0) [facility]2020-05-08 06:29:00 Test Item Value Reference Range Interpretation Comments MAGNESIUM (test code = 8311447101) 1.7 mg/dL 1.7-2.4 Lab Interpretation (test code = Normal 49631-5) [facility] HospitalLIPID PANEL (62219)(TOTAL CHOLESTEROL, TRIGLYCERIDES, HDL)2020-03-23 06:29:00 Test Item Value Reference Range Interpretation Comments CHOL (test code = 106 mg/dL 120-200 L 0444260720) HDL (test code = 46 mg/dL >40 5011315532) HDLC RATIO (test code = See_Comment [Au tomated message] 2151057993) The system [employer] generated this result transmit diamante reference range : <=5.0. The refe rence range was not u sed to interpret th is result as normal/abnormal . TRIG (test code = 74 mg/dL 30-170 8016841715) LDL CHOL (test code = 45 mg/dL See_Comment [Auto mated message] 01086-0) The system [employer] generated this result transmit diamante reference range : <=160. The refe rence range was not u sed to interpret th is result as normal/abnormal . VLDL (test code = 15 mg/dL 5-60 0619498434) Lab Interpretation (test Abnormal code = 84173-3) [facility]2020-[facility] 03:18:00 Test Item Value Reference Range Interpretation Comments APTT Patient (test code = See_Comment [ Automated message] 3173-2) The system [employer] generated this result transmitted ref erence range: 26 - 36 Seconds. The re ference range was not u sed to interpret this result as normal/abnor mal. Lab Interpretation (test Normal code = 97570-5) [facility] Test Item Value Reference Range Interpretation Comments APTT Patient (test code = See_Comment [ Automated message] 3173-2) The system [employer] generated this result transmitted ref erence range: 26 - 36 Seconds. The re ference range was not u sed to interpret this result as normal/abnor mal. Lab Interpretation (test Normal code = 52571-7) [facility] HospitalPROTHROMBIN TIME / [id number] 03:07:00 Test Item Value Reference Range Interpretation Comments PROTIME PATIENT (test See_Comment [Auto mated message] code = 5964-2) The system [employer] generated this result transmitted ref erence range: 10.1 - 1 2.6 Seconds. The re ference range was not u sed to interpret this result as normal/abnor mal. INR (test code = 6301-6) Nor mal INR <1.1; Warfarin Therap eutic range 2.0 to 3. 0 or 2.5 to 3.5, dep ending upon the indica tions. Lab Interpretation (test Normal code = 14975-3) [facility] HospitalPROTHROMBIN TIME / [id number] 03:07:00 Test Item Value Reference Range Interpretation Comments PROTIME PATIENT (test See_Comment [Auto mated message] code = 5964-2) The system [employer] generated this result transmitted ref erence range: 10.1 - 1 2.6 Seconds. The re ference range was not u sed to interpret this result as normal/abnor mal. INR (test code = 6301-6) Nor mal INR <1.1; Warfarin Therap eutic range 2.0 to 3. 0 or 2.5 to 3.5, dep ending upon the indica tions. Lab Interpretation (test Normal code = 32306-5) [facility] 2 [id number] 02:23:32 No acute cardiopulmonary process. Preliminary Report [...] reviewed this study and agree with the abovereport.[facility] 2 [id number] 02:23:32 No acute cardiopulmonary process. Preliminary Report [...] reviewed this study and agree with the abovereport.[facility] BranchCORONAVIRUS COVID-19 [id number] 01:23:00 Test Item Value Reference Range Interpretation Comments SARS-CoV-2 (test code = Not Detected Not Detected 92839-6) ALYSSA (test code = ALYSSA) ID NOW COVID-19 Assay is an isothermal nucleic acid amplification test intended for the qualitative detection of nucleic acid from SARS-CoV-2 viral RNA in nasopharyngeal ([employer]ACHINE [employer]PERATOR) specimens. It is used under Emergency [...] indicated. Lab Interpretation Normal (test code = 26480-2) [facility]COR[facility] COVID-19 [id number] 01:23:00 Test Item Value Reference Range Interpretation Comments SARS-CoV-2 (test code = Not Detected Not Detected 24991-5) ALYSSA (test code = ALYSSA) ID NOW COVID-19 Assay is an isothermal nucleic acid amplification test intended for the qualitative detection of nucleic acid from SARS-CoV-2 viral RNA in nasopharyngeal ([employer] K[employer]ITTING MACHINE OPERATOR) specimens. It is used under Emergency [...] indicated. Lab Interpretation Normal (test code = 31372-6) [facility] HospitalN-TERMINAL [id number] 00:12:00 Test Item Value Reference Range Interpretation Comments NT-proBNP (test code 585 pg/mL See_Comment H [Autom ated = 0812497650) message] The system which generated this result transmitted reference range : <=450. The reference range was not used to interpret this result as normal/abnormal . ALYSSA (test code = ALYSSA) Biotin has been reported to cause a negative bias, interpret results relative to patient's use of biotin. Lab Interpretation Abnormal (test code = 45500-5) [facility] HospitalTR[facility]IN [id number] 00:12:00 Test Item Value Reference Range Interpretation Comments TROPONIN I (test 0.030 ng/mL See_Comment [Automated code = 8745827687) message] The system which generated this result [...] ? Lab Interpretation Normal (test code = 83552-3) [facility] HospitalN-[facility]MINAL [id number] 00:12:00 Test Item Value Reference Range Interpretation Comments NT-proBNP (test code 585 pg/mL See_Comment H [Autom ated = 6151138514) message] The system which generated this result transmitted reference range : <=450. The reference range was not used to interpret this result as normal/abnormal . ALYSSA (test code = ALYSSA) Biotin has been reported to cause a negative bias, interpret results relative to patient's use of biotin. Lab Interpretation Abnormal (test code = 11436-3) [facility] HospitalTROP[facility]IN [id number] 00:12:00 Test Item Value Reference Range Interpretation Comments TROPONIN I (test 0.030 ng/mL See_Comment [Automated code = 4150478529) message] The system which generated this result [...] ? Lab Interpretation Normal (test code = 11219-1) [facility]. METABOLIC PANEL (86612)2020-03-23 00:03:00 Test Item Value Reference Range Interpretation Comments NA (test code = 138 mmol/L 135-145 5355167469) K (test code = 4.1 mmol/L 3.5-5 5201566656) CL (test code = 103 mmol/L 98-108 7424125725) CO2 TOTAL (test code = 26 mmol/L 23-31 4175039907) AGAP (test code = 2-16 5362065079) BUN (test code = 18 mg/dL 7-23 9545791670) GLUCOSE (test code = 157 mg/dL 70-110 H 7759467479) CREATININE (test code = 1.19 mg/dL 0.6-1.25 8119271961) TOTAL BILI (test code = 1.1 mg/dL 0.1-1.0 0785844740) CALCIUM (test code = 9.2 mg/dL 8.6-10.6 9927625341) T PROTEIN (test code = 6.8 g/dL 6.3-8.2 8753292506) ALBUMIN (test code = 4.0 g/dL 3.5-5 3515424751) ALK PHOS (test code = 51 U/L 34-122 6866572288) ALTv (test code = 16 U/L 5-50 1742-6) AST(SGOT) (test code = 23 U/L 13-40 4159343779) eGFR Calculation mL/min/1.73m2 (Non-) (test code = 5059149454) eGFR Calculation mL/min/1.73m2 () (test code = 6712499009) ALYSSA (test code = ALYSSA) Association of [...] tests). Lab Interpretation Abnormal (test code = 72782-4) [facility]. METABOLIC PANEL (11964)2020-03-23 00:03:00 Test Item Value Reference Range Interpretation Comments NA (test code = 138 mmol/L 135-145 3752445375) K (test code = 4.1 mmol/L 3.5-5 4278709506) CL (test code = 103 mmol/L 98-108 5326012566) CO2 TOTAL (test code = 26 mmol/L 23-31 1063557149) AGAP (test code = 2-16 9813961475) BUN (test code = 18 mg/dL 7-23 3314997390) GLUCOSE (test code = 157 mg/dL 70-110 H 6628867784) CREATININE (test code = 1.19 mg/dL 0.6-1.25 3312637730) TOTAL BILI (test code = 1.1 mg/dL 0.1-1.3 4559764345) CALCIUM (test code = 9.2 mg/dL 8.6-10.6 6517961077) T PROTEIN (test code = 6.8 g/dL 6.3-8.2 1818547660) ALBUMIN (test code = 4.0 g/dL 3.5-5 4655833021) ALK PHOS (test code = 51 U/L 34-122 4710063291) ALTv (test code = 16 U/L 5-50 1742-6) AST(SGOT) (test code = 23 U/L 13-40 4866373855) eGFR Calculation mL/min/1.73m2 (Non-) (test code = 8964524903) eGFR Calculation mL/min/1.73m2 () (test code = 3577210247) ALYSSA (test code = ALYSSA) Association of [...] tests). Lab Interpretation Abnormal (test code = 58763-9) [facility] WITH [id number] 23:57:00 Test Item Value Reference Range Interpretation Comments WBC (test code = See_Comment [Automated -2) message] The sy stem which generated this result transmitted reference range : 4.20 - 10.70 10*3/?L. The reference range was not used to interpret this result as normal/abnormal . RBC (test code = See_Comment L [Automated 063-8) message] The sy stem which generated this [...] RDW-SD (test code = 49.6 fL 38.5-51.6 61800-5) RDW-CV (test code = 14.6 % 12.1-15.4 788-0) PLT (test code = See_Comment L [Automated 777-3) message] The sy stem which generated this result transmitted reference range : 150 - 328 10*3/ ?L. The reference r corey was not used to interpret this result as normal/abnormal . MPV (test code = 9.9 fL 9.8-13 19646-3) NRBC/100 WBC (test See_Comment [Automat ed code = 2937043328) message] The system which generated this result transmitted reference range : 0.0 - 10.0 /100 WBCs. The refer ence range was not u sed to interpret th is result as normal/abnormal . NRBC x10^3 (test code <0.01 See_Comment [Auto mated = 8860918573) message] The s ystem which generated this result transmitted reference range : 10*3/?L. The reference range was not used to interpret this result as normal/abnormal . GRAN MAT (NEUT) % 55.3 % (test code = 770-8) IMM GRAN % (test code 0.20 % = 0840648871) LYMPH % (test code = 28.3 % 736-9) MONO % (test code = 12.6 % 5905-5) EOS % (test code = 3.1 % 713-8) BASO % (test code = 0.5 % 706-2) GRAN MAT x10^3(ANC) 3.20 10*3/uL 1.99-6.95 (test code = 0683155836) IMM GRAN x10^3 (test <0.03 0-0.06 code = 5000229544) LYMPH x10^3 (test code 1.64 10*3/uL 1.09-3.23 = 731-0) MONO x10^3 (test code 0.73 10*3/uL 0.36-1.02 = 742-7) EOS x10^3 (test code = 0.18 10*3/uL 0.06-0.53 711-2) BASO x10^3 (test code 0.03 10*3/uL 0.01-0.09 = 704-7) Lab Interpretation Abnormal (test code = 24972-9) [facility] WITH [id number] 23:57:00 Test Item Value Reference Range Interpretation [...] RDW-SD (test code = 49.6 fL 38.5-51.6 39565-5) RDW-CV (test code = 14.6 % 12.1-15.4 788-0) PLT (test code = See_Comment L [Automated 777-3) message] The sy stem which generated this result transmitted reference range : 150 - 328 10*3/ ?L. The reference r corey was not used to interpret this result as normal/abnormal . MPV (test code = 9.9 fL 9.8-13 24231-8) NRBC/100 WBC (test See_Comment [Automat ed code = 2835431305) message] The system which generated this result transmitted reference range : 0.0 - 10.0 /100 WBCs. The refer ence range was not u sed to interpret th is result as normal/abnormal . NRBC x10^3 (test code <0.01 See_Comment [Auto mated = 1509398272) message] The s ystem which generated this result transmitted reference range : 10*3/?L. The reference range was not used to interpret this result as normal/abnormal . GRAN MAT (NEUT) % 55.3 % (test code = 770-8) IMM GRAN % (test code 0.20 % = 3171754343) LYMPH % (test code = 28.3 % 736-9) MONO % (test code = 12.6 % 5905-5) EOS % (test code = 3.1 % 713-8) BASO % (test code = 0.5 % 706-2) GRAN MAT x10^3(ANC) 3.20 10*3/uL 1.99-6.95 (test code = 8623505527) IMM GRAN x10^3 (test <0.03 0-0.06 code = 6169400604) LYMPH x10^3 (test code 1.64 10*3/uL 1.09-3.23 = 731-0) MONO x10^3 (test code 0.73 10*3/uL 0.36-1.02 = 742-7) EOS x10^3 (test code = 0.18 10*3/uL 0.06-0.53 711-2) BASO x10^3 (test code 0.03 10*3/uL 0.01-0.09 = 704-7) Lab Interpretation Abnormal (test code = 60635-6) [facility] [id number] 21:48:00 Test Item Value Reference Range Interpretation Comments SARS-CoV-2 (test code = Not Detected Not Detected 25186-6) ALYSSA (test code = ALYSSA) ID NOW COVID-19 Assay is an isothermal nucleic acid amplification test intended for the qualitative detection of nucleic acid from SARS-CoV-2 viral RNA in nasopharyngeal (WARP KNITTING MACHINE OPERATOR) specimens. It is used under Emergency [...] indicated. Lab Interpretation Normal (test code = 39176-0) [facility] HospitalTrop[facility] [id number] 21:44:00 Test Item Value Reference Range Interpretation Comments TROPONIN I (test 0.027 ng/mL See_Comment [Automated code = 7602505803) message] The system which generated this result [...] ? Lab Interpretation Normal (test code = 00735-0) [facility] HospitalProthrombin Time (PT) / [id number] 21:41:00 Test Item Value Reference Range Interpretation [...] tions. Lab Interpretation (test Normal code = 13031-9) [facility] HospitalN-[facility]MINAL [id number] 21:39:00 Test Item Value Reference Range Interpretation Comments NT-proBNP (test code 663 pg/mL See_Comment H [Autom ated = 9059736808) message] The system which generated this result transmitted reference range : <=450. The reference range was not used to interpret this result as normal/abnormal . ALYSSA (test code = ALYSSA) Biotin has been reported to cause a negative bias, interpret results relative to patient's use of biotin. Lab Interpretation Abnormal (test code = 71504-4) [facility] HospitalCOMP. METABOLIC PANEL (05170)2020-03-21 21:37:00 Test Item Value Reference Range Interpretation Comments NA (test code = 139 mmol/L 135-145 3992571724) K (test code = 4.1 mmol/L 3.5-5 5847016322) CL (test code = 102 mmol/L 98-108 4349726603) CO2 TOTAL (test code = 29 mmol/L 23-31 2563239600) AGAP (test code = 2-16 1107059549) BUN (test code = 18 mg/dL 7-23 2555640058) GLUCOSE (test code = 277 mg/dL 70-110 H 3001941059) CREATININE (test code = 1.23 mg/dL 0.6-1.25 8326959378) TOTAL BILI (test code = 1.3 mg/dL 0.1-1.1 H 0109207670) CALCIUM (test code = 9.8 mg/dL 8.6-10.6 6644657311) T PROTEIN (test code = 7.0 g/dL 6.3-8.2 2238750635) ALBUMIN (test code = 4.2 g/dL 3.5-5 2580810468) ALK PHOS (test code = 50 U/L 34-122 5899199657) ALTv (test code = 15 U/L 5-50 1742-6) AST(SGOT) (test code = 22 U/L 13-40 5022789083) eGFR Calculation mL/min/1.73m2 (Non-) (test code = 0867106452) eGFR Calculation mL/min/1.73m2 () (test code = 2180001523) ALYSSA (test code = ALYSSA) Association of [...] tests). Lab Interpretation Abnormal (test code = 84863-7) [facility] HospitalLipase [id number] 21:37:00 Test Item Value Reference Range Interpretation Comments LIPASE (test code = 5895720250) 161 U/L 0-220 Lab Interpretation (test code = Normal 55411-5) [facility] 1 [id number] 20:46:31HISTORY: Chest pain. TECHNIQUE: Portable AP view [...] noted. Mild thoracolumbar scoliosis noted.CONCLUSIONS: Mild cardiomegaly. [facility] HospitalLaazic Acid Whole [id number] 20:43:00 Test Item Value Reference Range Interpretation Comments LACTIC ACID (test code = 1.91 mmol/L 0.3-2.6 6849326466) [facility] GLUCOSE (AUTOMATED)2020-03-07 20:58:00 Test Item Value Reference Range Interpretation Comments POCT GLU (test code = 1413583135) 216 mg/dL 70-110 H Lab Interpretation (test code = Abnormal 04760-2) [facility] GLUCOSE (AUTOMATED)2020-03-07 16:00:00 Test Item Value Reference Range Interpretation Comments POCT GLU (test code = 6951089956) 168 mg/dL 70-110 H Lab Interpretation (test code = Abnormal 33095-4) [facility] GLUCOSE (AUTOMATED)2020-03-07 13:07:00 Test Item Value Reference Range Interpretation Comments POCT GLU (test code = 8038674200) 148 mg/dL 70-110 H Lab Interpretation (test code = Abnormal 91276-7) [facility] HospitalTROPONIN [id number] 11:27:00 Test Item Value Reference Range Interpretation Comments TROPONIN I (test 0.051 ng/mL See_Comment H [Automated code = 9020759240) message] The system which generated this result [...] ? Lab Interpretation Abnormal (test code = 90724-3) [facility] HospitalN-[facility]MINAL [id number] 11:24:00 Test Item Value Reference Range Interpretation Comments NT-proBNP (test code 336 pg/mL See_Comment [Autom ated = 1147592922) message] The system which generated this result transmitted reference range : <=450. The reference range was not used to interpret this result as normal/abnormal . ALYSSA (test code = ALYSSA) Biotin has been reported to cause a negative bias, interpret results relative to patient's use of biotin. Lab Interpretation Normal (test code = 43554-1) [facility] HospitalBasi Metabolic Panel (NA, K, CL, CO2, GLUCOSE, BUN, CREATININE, CA)2020-03-07 11:14:00 Test Item Value Reference Range Interpretation Comments NA (test code = 138 mmol/L 135-145 2018229905) K (test code = 3.8 mmol/L 3.5-5 9903183242) CL (test code = 97 mmol/L 98-108 L 3659688748) CO2 TOTAL (test code = 30 mmol/L 23-31 7325609454) AGAP (test code = 2-16 4701224558) BUN (test code = 36 mg/dL 7-23 H 9360044911) GLUCOSE (test code = 140 mg/dL 70-110 H 1897264647) CREATININE (test code = 1.50 mg/dL 0.6-1.25 H 1389016400) CALCIUM (test code = 10.0 mg/dL 8.6-10.6 4111069096) eGFR Calculation mL/min/1.73m2 (Non-) (test code = 6930653095) eGFR Calculation mL/min/1.73m2 () (test code = 6544547011) ALYSSA (test code = ALYSSA) Association of [...] tests). Lab Interpretation Abnormal (test code = 88560-9) [facility] BranchURIC [id number] 11:14:00 Test Item Value Reference Range Interpretation Comments URIC ACID (test code = 5094213927) 5.4 mg/dL 3.6-8 Lab Interpretation (test code = Normal 08928-9) [facility] WITH [id number] 10:53:00 Test Item Value Reference Range Interpretation [...] RDW-SD (test code = 45.1 fL 38.5-51.6 71802-2) RDW-CV (test code = 14.2 % 12.1-15.4 788-0) PLT (test code = See_Comment [Automated 777-3) message] The sy stem which generated this result transmitted reference range : 150 - 328 10*3/ ?L. The reference r corey was not used to interpret this result as normal/abnormal . MPV (test code = 9.8 fL 9.8-13 75973-5) NRBC/100 WBC (test See_Comment [Automat ed code = 5172199805) message] The system which generated this result transmitted reference range : 0.0 - 10.0 /100 WBCs. The refer ence range was not u sed to interpret th is result as normal/abnormal . NRBC x10^3 (test code <0.01 See_Comment [Auto mated = 5522796165) message] The s ystem which generated this result transmitted reference range : 10*3/?L. The reference range was not used to interpret this result as normal/abnormal . GRAN MAT (NEUT) % 51.0 % (test code = 770-8) IMM GRAN % (test code 0.50 % = 6951932913) LYMPH % (test code = 32.0 % 736-9) MONO % (test code = 11.3 % 5905-5) EOS % (test code = 4.3 % 713-8) BASO % (test code = 0.9 % 706-2) GRAN MAT x10^3(ANC) 2.85 10*3/uL 1.99-6.95 (test code = 2502992592) IMM GRAN x10^3 (test 0.03 10*3/uL 0-0.06 code = 8834890544) LYMPH x10^3 (test code 1.79 10*3/uL 1.09-3.23 = 731-0) MONO x10^3 (test code 0.63 10*3/uL 0.36-1.02 = 742-7) EOS x10^3 (test code = 0.24 10*3/uL 0.06-0.53 711-2) BASO x10^3 (test code 0.05 10*3/uL 0.01-0.09 = 704-7) Lab Interpretation Abnormal (test code = 97579-9) [facility] GLUCOSE (AUTOMATED)2020-03-06 22:46:00 Test Item Value Reference Range Interpretation Comments POCT GLU (test code = 9378192721) 209 mg/dL 70-110 H Lab Interpretation (test code = Abnormal 30489-5) [facility] GLUCOSE (AUTOMATED)2020-03-06 16:23:00 Test Item Value Reference Range Interpretation Comments POCT GLU (test code = 1332791113) 254 mg/dL 70-110 H Lab Interpretation (test code = Abnormal 38411-0) [facility] GLUCOSE (AUTOMATED)2020-03-06 12:51:00 Test Item Value Reference Range Interpretation Comments POCT GLU (test code = 3476569907) 126 mg/dL 70-110 H Lab Interpretation (test code = Abnormal 63358-9) [facility] HospitalTROPONIN [id number] 10:16:00 Test Item Value Reference Range Interpretation Comments TROPONIN I (test 0.056 ng/mL See_Comment H [Automated code = 2899756158) message] The system which generated this result [...] ? Lab Interpretation Abnormal (test code = 58886-1) [facility] (NA, K, CL, CO2, GLUCOSE, BUN, CREATININE, CA)2020-03-06 10:13:00 Test Item Value Reference Range Interpretation Comments NA (test code = 136 mmol/L 135-145 6526636635) K (test code = 4.1 mmol/L 3.5-5 9914815873) CL (test code = 95 mmol/L 98-108 L 8845903934) CO2 TOTAL (test code = 30 mmol/L 23-31 2528236449) AGAP (test code = 2-16 1607638978) BUN (test code = 35 mg/dL 7-23 H 1324928926) GLUCOSE (test code = 174 mg/dL 70-110 H 3360977280) CREATININE (test code = 1.67 mg/dL 0.6-1.25 H 4446511828) CALCIUM (test code = 9.7 mg/dL 8.6-10.6 4445271815) eGFR Calculation mL/min/1.73m2 (Non-) (test code = 7211503064) eGFR Calculation mL/min/1.73m2 () (test code = 7318150641) ALYSSA (test code = ALYSSA) Association of [...] tests). Lab Interpretation Abnormal (test code = 64186-8) [facility] WITH [id number] 09:16:00 Test Item Value Reference Range Interpretation Comments WBC (test code = See_Comment [Automated 1695-2) message] The sy stem which generated this result transmitted reference range : 4.20 - 10.70 10*3/?L. The reference range was not used to interpret this result as normal/abnormal . RBC (test code = See_Comment L [Automated 319-8) message] The sy stem which generated this [...] RDW-SD (test code = 45.6 fL 38.5-51.6 20562-5) RDW-CV (test code = 14.3 % 12.1-15.4 788-0) PLT (test code = See_Comment [Automated 777-3) message] The sy stem which generated this result transmitted reference range : 150 - 328 10*3/ ?L. The reference r corey was not used to interpret this result as normal/abnormal . MPV (test code = 9.8 fL 9.8-13 26567-2) NRBC/100 WBC (test See_Comment [Automat ed code = 7850023950) message] The system which generated this result transmitted reference range : 0.0 - 10.0 /100 WBCs. The refer ence range was not u sed to interpret th is result as normal/abnormal . NRBC x10^3 (test code <0.01 See_Comment [Auto mated = 1001907954) message] The s ystem which generated this result transmitted reference range : 10*3/?L. The reference range was not used to interpret this result as normal/abnormal . GRAN MAT (NEUT) % 56.1 % (test code = 770-8) IMM GRAN % (test code 0.10 % = 9131987118) LYMPH % (test code = 29.7 % 736-9) MONO % (test code = 9.6 % 5905-5) EOS % (test code = 3.8 % 713-8) BASO % (test code = 0.7 % 706-2) GRAN MAT x10^3(ANC) 3.79 10*3/uL 1.99-6.95 (test code = 6873107273) IMM GRAN x10^3 (test <0.03 0-0.06 code = 6393825210) LYMPH x10^3 (test code 2.01 10*3/uL 1.09-3.23 = 731-0) MONO x10^3 (test code 0.65 10*3/uL 0.36-1.02 = 742-7) EOS x10^3 (test code = 0.26 10*3/uL 0.06-0.53 711-2) BASO x10^3 (test code 0.05 10*3/uL 0.01-0.09 = 704-7) Lab Interpretation Abnormal (test code = 82771-2) [facility])2020-03-06 01:25:00 Test Item Value Reference Range Interpretation Comments POCT GLU (test code = 8779297243) 208 mg/dL 70-110 H Lab Interpretation (test code = Abnormal 31742-9) [facility]TR[facility] [id number] 00:08:00 Test Item Value Reference Range Interpretation Comments TROPONIN I (test 0.047 ng/mL See_Comment H [Automated code = 1637086336) message] The system which generated this result [...] ? Lab Interpretation Abnormal (test code = 78502-0) [facility] GLUCOSE (AUTOMATED)2020-03-05 21:19:00 Test Item Value Reference Range Interpretation Comments POCT GLU (test code = 1660051736) 234 mg/dL 70-110 H Lab Interpretation (test code = Abnormal 78858-8) [facility] GLUCOSE (AUTOMATED)2020-03-05 16:55:00 Test Item Value Reference Range Interpretation Comments POCT GLU (test code = 6462660833) 258 mg/dL 70-110 H Lab Interpretation (test code = Abnormal 03279-4) [facility] GLUCOSE (AUTOMATED)2020-03-05 12:59:00 Test Item Value Reference Range Interpretation Comments POCT GLU (test code = 0445718424) 194 mg/dL 70-110 H Lab Interpretation (test code = Abnormal 28454-8) [facility]TR[facility] [id number] 10:54:00 Test Item Value Reference Range Interpretation Comments TROPONIN I (test 0.071 ng/mL See_Comment H [Automated code = 1683103317) message] The system which generated this result [...] ? Lab Interpretation Abnormal (test code = 46692-5) [facility] (NA, K, CL, CO2, GLUCOSE, BUN, CREATININE, CA)2020-03-05 10:43:00 Test Item Value Reference Range Interpretation Comments NA (test code = 139 mmol/L 135-145 1912185700) K (test code = 4.1 mmol/L 3.5-5 2522601875) CL (test code = 101 mmol/L 98-108 4467069314) CO2 TOTAL (test code = 27 mmol/L 23-31 1342788866) AGAP (test code = 2-16 5905991675) BUN (test code = 25 mg/dL 7-23 H 6370037045) GLUCOSE (test code = 243 mg/dL 70-110 H 0468892758) CREATININE (test code = 1.22 mg/dL 0.6-1.25 0758220285) CALCIUM (test code = 9.8 mg/dL 8.6-10.6 8817458727) eGFR Calculation mL/min/1.73m2 (Non-) (test code = 9828317944) eGFR Calculation mL/min/1.73m2 () (test code = 9519008558) ALYSSA (test code = ALYSSA) Association of [...] tests). Lab Interpretation Abnormal (test code = 86804-6) [facility] WITH [id number] 10:23:00 Test Item Value Reference Range Interpretation Comments WBC (test code = See_Comment [Automated message] 6690-2) The system [employer] generated this result transmitted ref erence range: 4.20 - 1 0.70 10*3/?L. The re ference range was not u sed to interpret this result as normal/abnor mal. RBC (test code = See_Comment [Automated message] 429-8) The system [employer] generated this result transmitted ref erence range: [...] RDW-SD (test code 47.8 fL 38.5-51.6 = 92648-6) RDW-CV (test code 14.4 % 12.1-15.4 = 788-0) PLT (test code = See_Comment [Automated message] 377-3) The system [employer] generated this result transmitted ref erence range: 150 - 32 8 10*3/?L. The re ference range was not u sed to interpret this result as normal/abnor mal. MPV (test code = 9.8 fL 9.8-13 49600-1) NRBC/100 WBC (test See_Comment [Automat ed message] code = 9673780579) The syste m which generated this result transmitted ref erence range: 0.0 - 10 .0 /100 WBCs. The refer ence range was not u sed to interpret this result as normal/abnor mal. NRBC x10^3 (test <0.01 See_Comment [Automated message] code = 3815831931) The syste m which generated this result transmitted ref erence range: 10*3/?L. The reference range was not used to interpr et this result as normal/abnormal . GRAN MAT (NEUT) % 48.8 % (test code = 770-8) IMM GRAN % (test 0.20 % code = 3431698765) LYMPH % (test code 34.7 % = 736-9) MONO % (test code 10.8 % = 5905-5) EOS % (test code = 4.9 % 713-8) BASO % (test code 0.6 % = 706-2) GRAN MAT 2.49 10*3/uL 1.99-6.95 x10^3(ANC) (test code = 5660305561) IMM GRAN x10^3 <0.03 0-0.06 (test code = 9070746155) LYMPH x10^3 (test 1.77 10*3/uL 1.09-3.23 code = 731-0) MONO x10^3 (test 0.55 10*3/uL 0.36-1.02 code = 742-7) EOS x10^3 (test 0.25 10*3/uL 0.06-0.53 code = 711-2) BASO x10^3 (test 0.03 10*3/uL 0.01-0.09 code = 704-7) [facility]ST 1 [id number] 03:06:08 No acute cardiopulmonary process. Unchanged enlargement [...] Report Dictated by Resident: Artemio Stratton, Lauro Aguialr MD., have reviewed this study and agree with the abovereport.[facility] CORONAVIRUS COVID-19 [id number] 00:34:00 Test Item Value Reference Range Interpretation Comments SARS-CoV-2 (test code = Not Detected Not Detected 42058-7) ALYSSA (test code = ALYSSA) ID NOW COVID-19 Assay is an isothermal nucleic acid amplification test intended for the qualitative detection of nucleic acid from SARS-CoV-2 viral RNA in nasopharyngeal (WARP KNITTING MACHINE OPERATOR) specimens. It is used under Emergency [...] indicated. Lab Interpretation Normal (test code = 89968-5) [facility] HospitalTrop[facility] [id number] 00:08:00 Test Item Value Reference Range Interpretation Comments TROPONIN I (test 0.056 ng/mL See_Comment H [Automated code = 0260763205) message] The system which generated this result [...] ? Lab Interpretation Abnormal (test code = 15271-4) [facility]MINAL [id number] 00:04:00 Test Item Value Reference Range Interpretation Comments NT-proBNP (test code 562 pg/mL See_Comment H [Autom ated = 5482471887) message] The system which generated this result transmitted reference range : <=450. The reference range was not used to interpret this result as normal/abnormal . ALYSSA (test code = ALYSSA) Biotin has been reported to cause a negative bias, interpret results relative to patient's use of biotin. Lab Interpretation Abnormal (test code = 15750-1) [facility] HospitalProthrombin Time (PT) / [id number] 23:57:00 Test Item Value Reference Range Interpretation [...] tions. Lab Interpretation (test Normal code = 91217-3) [facility] Metabolic Panel (NA, K, CL, CO2, GLUCOSE, BUN, CREATININE, CA)2020-03-04 23:56:00 Test Item Value Reference Range Interpretation Comments NA (test code = 139 mmol/L 135-145 4466173754) K (test code = 4.1 mmol/L 3.5-5 0157174494) CL (test code = 102 mmol/L 98-108 1987682971) CO2 TOTAL (test code = 29 mmol/L 23-31 4329469747) AGAP (test code = 2-16 8347771452) BUN (test code = 23 mg/dL 7-23 4499764089) GLUCOSE (test code = 193 mg/dL 70-110 H 7022068129) CREATININE (test code = 1.25 mg/dL 0.6-1.25 1329742795) CALCIUM (test code = 9.7 mg/dL 8.6-10.6 3371846572) eGFR Calculation mL/min/1.73m2 (Non-) (test code = 5854963952) eGFR Calculation mL/min/1.73m2 () (test code = 2337736834) ALYSSA (test code = ALYSSA) Association of [...] tests). Lab Interpretation Abnormal (test code = 07086-7) [facility] HospitalHep[facility] Function Panel (ALB, T.PRO, BILI T, BU/BC, ALT, AST, ALK PHOS)2020-03-04 23:56:00 Test Item Value Reference Range Interpretation Comments TOTAL BILI (test code = 0044530710) 1.1 mg/dL 0.1-1.1 BILI UNCON (test code = 1906697094) 1.1 mg/dL 0.1-1.1 BILI CONJ (test code = 6432193971) 0.0 mg/dL 0-0.3 T PROTEIN (test code = 6376506814) 7.1 g/dL 6.3-8.2 ALBUMIN (test code = 9372694890) 4.1 g/dL 3.5-5 ALK PHOS (test code = 1335761670) 61 U/L 34-122 ALTv (test code = 1742-6) 16 U/L 5-50 AST(SGOT) (test code = 2268140873) 23 U/L 13-40 Lab Interpretation (test code = Normal 88841-4) [facility] HospitalLipase [id number] 23:56:00 Test Item Value Reference Range Interpretation Comments LIPASE (test code = 0579248826) 149 U/L 0-220 Lab Interpretation (test code = Normal 84164-7) [facility] HospitalaPTT2020-04-19 23:56:00 Test Item Value Reference Range Interpretation Comments APTT Patient (test See_Comment [Automat ed code = 3173-2) message] The system which generated this result transmitted reference range : 23 - 38 Seconds . The reference range was not used to interpr et this result as normal/abnormal . ALYSSA (test code = ALYSSA) The [facility] patient population mean normal value for aPTT is 30 seconds. Lab Interpretation Normal (test code = 82440-5) [facility] WITH [id number] 23:46:00 Test Item Value Reference Range Interpretation Comments WBC (test code = See_Comment [Automated 8890-2) message] The sy stem which generated this [...] RDW-SD (test code = 48.3 fL 38.5-51.6 53632-1) RDW-CV (test code = 14.7 % 12.1-15.4 788-0) PLT (test code = See_Comment [Automated 777-3) message] The sy stem which generated this result transmitted reference range : 150 - 328 10*3/ ?L. The reference r corey was not used to interpret this result as normal/abnormal . MPV (test code = 9.8 fL 9.8-13 92921-9) NRBC/100 WBC (test See_Comment [Automat ed code = 7202986290) message] The system which generated this result transmitted reference range : 0.0 - 10.0 /100 WBCs. The refer ence range was not u sed to interpret th is result as normal/abnormal . NRBC x10^3 (test code <0.01 See_Comment [Auto mated = 6245090419) message] The s ystem which generated this result transmitted reference range : 10*3/?L. The reference range was not used to interpret this result as normal/abnormal . GRAN MAT (NEUT) % 60.1 % (test code = 770-8) IMM GRAN % (test code 0.20 % = 1699604446) LYMPH % (test code = 26.4 % 736-9) MONO % (test code = 9.9 % 5905-5) EOS % (test code = 2.8 % 713-8) BASO % (test code = 0.6 % 706-2) GRAN MAT x10^3(ANC) 3.17 10*3/uL 1.99-6.95 (test code = 9124269857) IMM GRAN x10^3 (test <0.03 0-0.06 code = 0955764628) LYMPH x10^3 (test code 1.39 10*3/uL 1.09-3.23 = 731-0) MONO x10^3 (test code 0.52 10*3/uL 0.36-1.02 = 742-7) EOS x10^3 (test code = 0.15 10*3/uL 0.06-0.53 711-2) BASO x10^3 (test code 0.03 10*3/uL 0.01-0.09 = 704-7) Lab Interpretation Abnormal (test code = 76783-5) [facility] GLUCOSE (AUTOMATED)2020-03-02 16:04:00 Test Item Value Reference Range Interpretation Comments POCT GLU (test code = 5125001255) 214 mg/dL 70-110 H Lab Interpretation (test code = Abnormal 09171-3) [facility] GLUCOSE (AUTOMATED)2020-03-02 16:04:00 Test Item Value Reference Range Interpretation Comments POCT GLU (test code = 8912266182) 271 mg/dL 70-110 H Lab Interpretation (test code = Abnormal 07539-5) [facility]AL [id number] 09:43:00 Test Item Value Reference Range Interpretation Comments NT-proBNP (test code 1670 pg/mL See_Comment H [Autom ated = 2146047068) message] The system which generated this result transmitted reference range : <=450. The reference range was not used to interpret this result as normal/abnormal . ALYSSA (test code = ALYSSA) Biotin has been reported to cause a negative bias, interpret results relative to patient's use of biotin. Lab Interpretation Abnormal (test code = 83784-7) [facility] METABOLIC PANEL (NA, K, CL, CO2, GLUCOSE, BUN, CREATININE, CA)2020-03-02 09:33:00 Test Item Value Reference Range Interpretation Comments NA (test code = 143 mmol/L 135-145 9758315688) K (test code = 3.8 mmol/L 3.5-5 5128123147) CL (test code = 105 mmol/L 98-108 8647067767) CO2 TOTAL (test code = 28 mmol/L 23-31 6140434311) AGAP (test code = 2-16 5502846979) BUN (test code = 19 mg/dL 7-23 0992312279) GLUCOSE (test code = 152 mg/dL 70-110 H 8687775550) CREATININE (test code = 1.18 mg/dL 0.6-1.25 7182667945) CALCIUM (test code = 9.0 mg/dL 8.6-10.6 8634464667) eGFR Calculation mL/min/1.73m2 (Non-) (test code = 2078653458) eGFR Calculation mL/min/1.73m2 () (test code = 5604434257) ALYSSA (test code = ALYSSA) Association of [...] tests). Lab Interpretation Abnormal (test code = 91029-5) [facility]2020-[facility]-17 09:33:00 Test Item Value Reference Range Interpretation Comments MAGNESIUM (test code = 4651695301) 1.8 mg/dL 1.7-2.4 Lab Interpretation (test code = Normal 21876-0) [facility] (AUTOMATED)2020-03-01 20:42:00 Test Item Value Reference Range Interpretation Comments POCT GLU (test code = 7683447553) 231 mg/dL 70-110 H Lab Interpretation (test code = Abnormal 10302-6) [facility]VITAMIN B12, [id number] 11:51:00 Test Item Value Reference Range Interpretation Comments VIT B12 (test code = 325 pg/mL 240-930 7893231091) ALYSSA (test code = ALYSSA) Biotin has been reported to cause a positive bias, interpret results relative to patient's use of biotin. Lab Interpretation (test Normal code = 39278-9) [facility]FOLATE2020-04-16 11:49:00 Test Item Value Reference Range Interpretation Comments FOLATE SER (test code = >20.0 3-20 H Slig ht hemolysis 4730358991) Lab Interpretation (test Abnormal code = 18434-9) [facility] HospitalPROCALCITONIN2020-04-16 10:49:00 Test Item Value Reference Range Interpretation Comments Procalcitonin (test 3.05 ng/mL <0.07 H code = 8106541079) ALYSSA (test code = ALYSSA) INTERPRETATION OF [...] For further information please refer to:[email or web address] Lab Interpretation Abnormal (test code = 24569-2) [facility] HospitalTROPONIN [id number] 09:58:00 Test Item Value Reference Range Interpretation Comments TROPONIN I (test 0.093 ng/mL See_Comment H [Automated code = 2990389930) message] The system which generated this result [...] ? Lab Interpretation Abnormal (test code = 06178-3) [facility] HospitalN-TERMINAL [id number] 09:55:00 Test Item Value Reference Range Interpretation Comments NT-proBNP (test code 4450 pg/mL See_Comment H [Autom ated = 6293236076) message] The system which generated this result transmitted reference range : <=450. The reference range was not used to interpret this result as normal/abnormal . ALYSSA (test code = ALYSSA) Biotin has been reported to cause a negative bias, interpret results relative to patient's use of biotin. Lab Interpretation Abnormal (test code = 91742-6) [facility] (NA, K, CL, CO2, GLUCOSE, BUN, CREATININE, CA)2020-03-01 09:50:00 Test Item Value Reference Range Interpretation Comments NA (test code = 141 mmol/L 135-145 8440982472) K (test code = 3.5 mmol/L 3.5-5 5222749175) CL (test code = 105 mmol/L 98-108 1575251028) CO2 TOTAL (test code = 26 mmol/L 23-31 8116345184) AGAP (test code = 2-16 8151208979) BUN (test code = 13 mg/dL 7-23 4232851515) GLUCOSE (test code = 219 mg/dL 70-110 H 5816698784) CREATININE (test code = 1.01 mg/dL 0.6-1.25 8602636248) CALCIUM (test code = 8.7 mg/dL 8.6-10.6 7821088392) eGFR Calculation mL/min/1.73m2 (Non-) (test code = 2571397769) eGFR Calculation mL/min/1.73m2 () (test code = 3516601829) ALYSSA (test code = ALYSSA) Association of [...] tests). Lab Interpretation Abnormal (test code = 41819-3) [facility] HospitalMagnesium [id number] 09:50:00 Test Item Value Reference Range Interpretation Comments MAGNESIUM (test code = 5190717652) 1.9 mg/dL 1.7-2.4 Lab Interpretation (test code = Normal 97947-9) [facility] HospitalCB WITH [id number] 09:22:00 Test Item Value Reference Range Interpretation Comments WBC (test code = See_Comment [Automated 7890-2) message] The sy stem which generated this result transmitted reference range : 4.20 - 10.70 10*3/?L. The reference range was not used to interpret this result as normal/abnormal . RBC (test code = See_Comment L [Automated 699-8) message] The sy stem which generated this [...] RDW-SD (test code = 47.8 fL 38.5-51.6 05199-1) RDW-CV (test code = 14.8 % 12.1-15.4 788-0) PLT (test code = See_Comment L [Automated 777-3) message] The sy stem which generated this result transmitted reference range : 150 - 328 10*3/ ?L. The reference r corey was not used to interpret this result as normal/abnormal . MPV (test code = 9.9 fL 9.8-13 94430-1) NRBC/100 WBC (test See_Comment [Automat ed code = 6135076375) message] The system which generated this result transmitted reference range : 0.0 - 10.0 /100 WBCs. The refer ence range was not u sed to interpret th is result as normal/abnormal . NRBC x10^3 (test code <0.01 See_Comment [Auto mated = 6731523746) message] The s ystem which generated this result transmitted reference range : 10*3/?L. The reference range was not used to interpret this result as normal/abnormal . GRAN MAT (NEUT) % 66.0 % (test code = 770-8) IMM GRAN % (test code 0.30 % = 9394502731) LYMPH % (test code = 20.8 % 736-9) MONO % (test code = 9.5 % 5905-5) EOS % (test code = 2.8 % 713-8) BASO % (test code = 0.6 % 706-2) GRAN MAT x10^3(ANC) 4.44 10*3/uL 1.99-6.95 (test code = 6908169566) IMM GRAN x10^3 (test <0.03 0-0.06 code = 6076665086) LYMPH x10^3 (test code 1.40 10*3/uL 1.09-3.23 = 731-0) MONO x10^3 (test code 0.64 10*3/uL 0.36-1.02 = 742-7) EOS x10^3 (test code = 0.19 10*3/uL 0.06-0.53 711-2) BASO x10^3 (test code 0.04 10*3/uL 0.01-0.09 = 704-7) Lab Interpretation Abnormal (test code = 67200-5) [facility] HospitalGLYCOSYLATED HEMOGLOBIN (A1C)2020-03-01 06:49:00 Test Item Value [...] Indicated Lab Interpretation Abnormal (test code = 15301-0) [facility] HospitalURIC [id number] 06:25:00 Test Item Value Reference Range Interpretation Comments URIC ACID (test code = 3904436645) 2.3 mg/dL 3.6-8 L Lab Interpretation (test code = Abnormal 95343-8) [facility] HospitalSEDIMENTATION [id number] 05:25:00 Test Item Value Reference Range Interpretation Comments ESR (test code = See_Comment H [Automated message] 4338044091) The system [employer] h generated this result transmitted ref erence range: 0 - 10 m m/HR. The reference r corey was not used to interpret this result as normal/abnor mal. Lab Interpretation (test Abnormal code = 47386-7) [facility] HospitalN-TERMINAL [id number] 04:07:00 Test Item Value Reference Range Interpretation Comments NT-proBNP (test code 4080 pg/mL See_Comment H [Autom ated = 2307741939) message] The system which generated this result transmitted reference range : <=450. The reference range was not used to interpret this result as normal/abnormal . ALYSSA (test code = ALYSSA) Biotin has been reported to cause a negative bias, interpret results relative to patient's use of biotin. Lab Interpretation Abnormal (test code = 71747-3) [facility]PO[facility] (AUTOMATED)2020-03-01 03:42:00 Test Item Value Reference Range Interpretation Comments POCT GLU (test code = 2428049395) 190 mg/dL 70-110 H Lab Interpretation (test code = Abnormal 41396-7) [facility] HospitalTROPONIN [id number] 03:30:00 Test Item Value Reference Range Interpretation Comments TROPONIN I (test 0.098 ng/mL See_Comment H [Automated code = 8200515029) message] The system which generated this result [...] ? Lab Interpretation Abnormal (test code = 74126-1) [facility] HospitalHEPATIC FUNCTION PANEL (49967) (ALB,T.PRO,BILI T,BU/BC,ALT,AST,ALK PHOS)2020-03-01 03:24:00 Test Item Value Reference Range Interpretation Comments TOTAL BILI (test code = 3648100945) 2.2 mg/dL 0.1-1.1 H BILI UNCON (test code = 8056074330) 2.0 mg/dL 0.1-1.1 H BILI CONJ (test code = 5308746199) 0.0 mg/dL 0-0.3 T PROTEIN (test code = 0023495866) 6.7 g/dL 6.3-8.2 ALBUMIN (test code = 2002921899) 4.0 g/dL 3.5-5 ALK PHOS (test code = 2053322958) 48 U/L 34-122 ALTv (test code = 1742-6) 18 U/L 5-50 AST(SGOT) (test code = 2234942132) 57 U/L 13-40 H Lab Interpretation (test code = Abnormal 22492-4) [facility] HospitalPhosphorus [id number] 03:17:00 Test Item Value Reference Range Interpretation Comments PHOSPHORUS (test code = 3.1 mg/dL 2.5-5 Slig ht hemolysis 6728487798) Lab Interpretation (test Normal code = 28633-7) [facility] HospitalPROTHROMBIN TIME / [id number] 03:08:00 Test Item Value Reference Range Interpretation Comments PROTIME PATIENT (test See_Comment [Auto mated message] code = 5964-2) The system [facility] generated this result transmitted ref erence range: 12.0 - 1 4.7 Seconds. The re ference range was not u sed to interpret this result as normal/abnor mal. INR (test code = 6301-6) Nor mal INR <1.1; Warfarin Therap eutic range 2.0 to 3. 0 or 2.5 to 3.5, dep ending upon the indica tions. Lab Interpretation (test Normal code = 95662-4) [facility] HospitalCREATINE [id number] 03:01:00 Test Item Value Reference Range Interpretation Comments CK (test code = 8605744168) 68 U/L 33-194 Lab Interpretation (test code = Normal 47282-7) [facility] HospitalURIC [id number] 02:41:00 Test Item Value Reference Range Interpretation Comments URIC ACID (test code = 7221692671) 2.3 mg/dL 3.6-8 L Lab Interpretation (test code = Abnormal 38410-1) [facility] HospitalTHYROID STIMULATING [id number] 02:26:00 Test Item Value Reference Range Interpretation Comments TSH (test code = See_Comment [Automated message] 1333644995) The system [facility] h generated this result transmitted ref erence range: 0.45 - 4 .70 mIU/L. The refe rence range was not u sed to interpret this result as normal/abnor mal. Lab Interpretation (test Normal code = 96697-9) [facility] HospitalN-TERMINAL [id number] 02:04:00 Test Item Value Reference Range Interpretation Comments NT-proBNP (test code 4390 pg/mL See_Comment H [Autom ated = 0600365698) message] The system which generated this result transmitted reference range : <=450. The reference range was not used to interpret this result as normal/abnormal . ALYSSA (test code = ALYSSA) Biotin has been reported to cause a negative bias, interpret results relative to patient's use of biotin. Lab Interpretation Abnormal (test code = 00733-2) [facility] HospitalMAGNESIUM2020-04-16 02:01:00 Test Item Value Reference Range Interpretation Comments MAGNESIUM (test code = 3488258417) 1.5 mg/dL 1.7-2.4 L Lab Interpretation (test code = Abnormal 14045-1) [facility] HospitalLIPASE2020-04-16 00:22:00 Test Item Value Reference Range Interpretation Comments LIPASE (test code = 1957166669) 68 U/L 0-220 Lab Interpretation (test code = Normal 17621-2) [facility] HospitalCORONAVIRUS COVID-19 [id number] 23:42:00 Test Item Value Reference Range Interpretation Comments SARS-CoV-2 (test code = Not Detected Not Detected 45696-7) ALYSSA (test code = ALYSSA) ID NOW COVID-19 Assay is an isothermal nucleic acid amplification test intended for the qualitative detection of nucleic acid from SARS-CoV-2 viral RNA in nasopharyngeal ([employer]INE [employer]ATOR) specimens. It is used under Emergency [...] indicated. Lab Interpretation Normal (test code = 75722-5) [facility] HospitalXR CHEST 1 VW [id number] 23:26:02 No acute intrathoracic abnormality, specifically no radiographic findingsto suggest COVID-19 pneumonia. Disclaimer: Generally, the findings on chest imaging in COVID-19 are notspecific, and overlap with other infections, including influenza, H1N1,SARS and MERS. According to the Centers for Disease Control (CDC) and recent statement ofthe [employer], viral testing remains the [...] stimulating device overlie the mid thoracic spine. [facility], Radiant ResultsInft User - 02/29/2020 6:27 [...] Disease Control (CDC) and recent statement ofthe [employer], viral testing remains the only specificmethod of diagnosis. Confirmation with the viral test is required, even ifradiologic findings are suggestive of COVID-[address]. Preliminary Report Dictated by Resident: Radu Boo MD., have reviewed this study and agree with theabovereport.[facility] HospitalWendy [id number] 22:59:00 Test Item Value Reference Range Interpretation Comments TROPONIN I (test 0.071 ng/mL See_Comment H [Automated code = 2297811192) message] The system which generated this result [...] ? Lab Interpretation Abnormal (test code = 80582-9) [facility] (NA, K, CL, CO2, GLUCOSE, BUN, CREATININE, CA)2020-02-29 22:48:00 Test Item Value Reference Range Interpretation Comments NA (test code = 141 mmol/L 135-145 5430558429) K (test code = 3.2 mmol/L 3.5-5 L 8552651521) CL (test code = 104 mmol/L 98-108 3248399754) CO2 TOTAL (test code = 25 mmol/L 23-31 4891086464) AGAP (test code = 2-16 1332184630) BUN (test code = 12 mg/dL 7-23 0353213804) GLUCOSE (test code = 250 mg/dL 70-110 H 1191893185) CREATININE (test code = 1.02 mg/dL 0.6-1.25 2268033159) CALCIUM (test code = 8.9 mg/dL 8.6-10.6 4367053987) eGFR Calculation mL/min/1.73m2 (Non-) (test code = 2703481919) eGFR Calculation mL/min/1.73m2 () (test code = 7947272383) ALYSSA (test code = ALYSSA) Association of [...] tests). Lab Interpretation Abnormal (test code = 66912-6) [facility] WITH [id number] 22:41:00 Test Item Value Reference Range Interpretation Comments WBC (test code = See_Comment [Automated 6098-2) message] The sy stem which generated this result transmitted reference range : 4.20 - 10.70 10*3/?L. The reference range was not used to interpret this result as normal/abnormal . RBC (test code = See_Comment L [Automated 239-8) message] The sy stem which generated this [...] RDW-SD (test code = 46.6 fL 38.5-51.6 67309-9) RDW-CV (test code = 14.6 % 12.1-15.4 788-0) PLT (test code = See_Comment [Automated 777-3) message] The sy stem which generated this result transmitted reference range : 150 - 328 10*3/ ?L. The reference r corey was not used to interpret this result as normal/abnormal . MPV (test code = 9.7 fL 9.8-13 L 05621-2) NRBC/100 WBC (test See_Comment [Automat ed code = 2007400414) message] The system which generated this result transmitted reference range : 0.0 - 10.0 /100 WBCs. The refer ence range was not u sed to interpret th is result as normal/abnormal . NRBC x10^3 (test code <0.01 See_Comment [Auto mated = 3970223882) message] The s ystem which generated this result transmitted reference range : 10*3/?L. The reference range was not used to interpret this result as normal/abnormal . GRAN MAT (NEUT) % 68.6 % (test code = 770-8) IMM GRAN % (test code 0.30 % = 1388497467) LYMPH % (test code = 18.6 % 736-9) MONO % (test code = 10.1 % 5905-5) EOS % (test code = 1.8 % 713-8) BASO % (test code = 0.6 % 706-2) GRAN MAT x10^3(ANC) 4.29 10*3/uL 1.99-6.95 (test code = 3033912950) IMM GRAN x10^3 (test <0.03 0-0.06 code = 2041278634) LYMPH x10^3 (test code 1.16 10*3/uL 1.09-3.23 = 731-0) MONO x10^3 (test code 0.63 10*3/uL 0.36-1.02 = 742-7) EOS x10^3 (test code = 0.11 10*3/uL 0.06-0.53 711-2) BASO x10^3 (test code 0.04 10*3/uL 0.01-0.09 = 704-7) Lab Interpretation Abnormal (test code = 29551-3) [facility] HospitalLaazic Acid Whole [id number] 22:38:00 Test Item Value Reference Range Interpretation Comments LACTIC ACID (test code = 1.88 mmol/L 0.3-2.6 0374363393) [facility] HospitalPOWI GLUCOSE (AUTOMATED)2020-01-17 18:18:00 Test Item Value Reference Range Interpretation Comments POCT GLU (test code = 2914047934) 290 mg/dL 70-110 H Lab Interpretation (test code = Abnormal 56988-8) [facility] HospitalTROPONIN [id number] 18:01:00 Test Item Value Reference Range Interpretation Comments TROPONIN I (test 0.065 ng/mL See_Comment H [Automated code = 8767302288) message] The system which generated this result [...] ? Lab Interpretation Abnormal (test code = 07571-5) [facility] HospitalaPTT2020-03-03 17:10:00 Test Item Value Reference Range Interpretation Comments APTT Patient (test See_Comment H [Automat ed code = 3173-2) message] The system which generated this result transmitted reference range : 23 - 38 Seconds . The reference range was not used to interpr et this result as normal/abnormal . ALYSSA (test code = ALYSSA) The [facility] patient population mean normal value for aPTT is 30 seconds. Lab Interpretation Abnormal (test code = 76016-0) [facility]PO[facility]SE (AUTOMATED)2020-01-17 11:59:00 Test Item Value Reference Range Interpretation Comments POCT GLU (test code = 7269500951) 185 mg/dL 70-110 H Lab Interpretation (test code = Abnormal 18745-1) [facility] HospitalTROPONIN [id number] 11:23:00 Test Item Value Reference Range Interpretation Comments TROPONIN I (test 0.073 ng/mL See_Comment H [Automated code = 3975068375) message] The system which generated this result [...] ? Lab Interpretation Abnormal (test code = 84919-7) [facility] Metabolic Panel (NA, K, CL, CO2, GLUCOSE, BUN, CREATININE, CA)2020-01-17 11:16:00 Test Item Value Reference Range Interpretation Comments NA (test code = 136 mmol/L 135-145 6403530726) K (test code = 3.3 mmol/L 3.5-5 L 0722606181) CL (test code = 101 mmol/L 98-108 0343276113) CO2 TOTAL (test code = 26 mmol/L 23-31 7148969893) AGAP (test code = 2-16 1931531911) BUN (test code = 19 mg/dL 7-23 6111849976) GLUCOSE (test code = 227 mg/dL 70-110 H 6408664992) CREATININE (test code = 1.33 mg/dL 0.6-1.25 H 7591079228) CALCIUM (test code = 9.1 mg/dL 8.6-10.6 7048996620) eGFR Calculation mL/min/1.73m2 (Non-) (test code = 6980559789) eGFR Calculation mL/min/1.73m2 () (test code = 9610610007) ALYSSA (test code = ALYSSA) Association of [...] tests). Lab Interpretation Abnormal (test code = 82419-5) [facility]aPTT2020-03-03 11:00:00 Test Item Value Reference Range Interpretation Comments APTT Patient (test See_Comment H [Automat ed code = 3173-2) message] The system which generated this result transmitted reference range : 23 - 38 Seconds . The reference range was not used to interpr et this result as normal/abnormal . ALYSSA (test code = ALYSSA) The [facility] patient population mean normal value for aPTT is 30 seconds. Lab Interpretation Abnormal (test code = 59344-3) [facility]CB WITH [id number] 10:43:00 Test Item Value Reference Range Interpretation Comments WBC (test code = See_Comment [Automated message] 6690-2) The system [employer] generated this result transmitted ref erence range: 4.20 - 1 0.70 10*3/?L. The re ference range was not u sed to interpret this result as normal/abnor mal. RBC (test code = See_Comment [Automated message] 789-8) The system [employer] generated this result transmitted ref erence range: [...] RDW-SD (test code 41.5 fL 38.5-51.6 = 92522-3) RDW-CV (test code 12.8 % 12.1-15.4 = 788-0) PLT (test code = See_Comment [Automated message] 777-3) The system whic h generated this result transmitted ref erence range: 150 - 32 8 10*3/?L. The re ference range was not u sed to interpret this result as normal/abnor mal. MPV (test code = 10.7 fL 9.8-13 69103-1) NRBC/100 WBC (test See_Comment [Automat ed message] code = 3075271790) The syste m which generated this result transmitted ref erence range: 0.0 - 10 .0 /100 WBCs. The refer ence range was not u sed to interpret this result as normal/abnor mal. NRBC x10^3 (test <0.01 See_Comment [Automated message] code = 6107321152) The syste m which generated this result transmitted ref erence range: 10*3/?L. The reference range was not used to interpr et this result as normal/abnormal . GRAN MAT (NEUT) % 56.1 % (test code = 770-8) IMM GRAN % (test 0.30 % code = 0772761843) LYMPH % (test code 29.5 % = 736-9) MONO % (test code 9.9 % = 5905-5) EOS % (test code = 3.3 % 713-8) BASO % (test code 0.9 % = 706-2) GRAN MAT 3.73 10*3/uL 1.99-6.95 x10^3(ANC) (test code = 6053972700) IMM GRAN x10^3 <0.03 0-0.06 (test code = 8691846877) LYMPH x10^3 (test 1.96 10*3/uL 1.09-3.23 code = 731-0) MONO x10^3 (test 0.66 10*3/uL 0.36-1.02 code = 742-7) EOS x10^3 (test 0.22 10*3/uL 0.06-0.53 code = 711-2) BASO x10^3 (test 0.06 10*3/uL 0.01-0.09 code = 704-7) [facility] GLUCOSE (AUTOMATED)2020-01-17 01:49:00 Test Item Value Reference Range Interpretation Comments POCT GLU (test code = 6597753095) 305 mg/dL 70-110 H Lab Interpretation (test code = Abnormal 53115-4) [facility] GLUCOSE (AUTOMATED)2020-01-17 00:01:00 Test Item Value Reference Range Interpretation Comments POCT GLU (test code = 9438781262) 271 mg/dL 70-110 H Lab Interpretation (test code = Abnormal 02364-0) [facility]2020-03-02 22:23:00 Test Item Value Reference Range Interpretation Comments APTT Patient (test See_Comment H [Automat ed code = 3173-2) message] The system which generated this result transmitted reference range : 23 - 38 Seconds . The reference range was not used to interpr et this result as normal/abnormal . ALYSSA (test code = ALYSSA) The [facility] patient population mean normal value for aPTT is 30 seconds. Lab Interpretation Abnormal (test code = 72275-1) [facility] HospitalTROPONIN [id number] 21:22:00 Test Item Value Reference Range Interpretation Comments TROPONIN I (test 0.061 ng/mL See_Comment H [Automated code = 8852518781) message] The system which generated this result [...] ? Lab Interpretation Abnormal (test code = 33337-4) [facility]PO[facility]SE (AUTOMATED)2020-01-16 17:37:00 Test Item Value Reference Range Interpretation Comments POCT GLU (test code = 3197776032) 271 mg/dL 70-110 H Lab Interpretation (test code = Abnormal 12778-8) [facility]2020-03-02 12:47:00 Test Item Value Reference Range Interpretation Comments APTT Patient (test See_Comment HH [Automat ed code = 3173-2) message] The system which generated this result transmitted reference range : 23 - 38 Seconds . The reference range was not used to interpr et this result as normal/abnormal . ALYSSA (test code = ALYSSA) The [facility] patient population mean normal value for aPTT is 30 seconds. Lab Interpretation Abnormal (test code = 76192-9) [facility]TROPONIN [id number] 12:35:00 Test Item Value Reference Range Interpretation Comments TROPONIN I (test 0.074 ng/mL See_Comment H [Automated code = 8592669182) message] The system which generated this result [...] ? Lab Interpretation Abnormal (test code = 56214-1) [facility] HospitalLIPID PANEL (26607)(TOTAL CHOLESTEROL, TRIGLYCERIDES, HDL)2020-01-16 12:23:00 Test Item Value Reference Range Interpretation Comments CHOL (test code = 95 mg/dL 120-200 L 8706027536) HDL (test code = 44 mg/dL >40 1345499975) HDLC RATIO (test code = See_Comment [Au tomated message] 4862822584) The system [employer] generated this result transmitted ref erence range: <=5.0. T he reference range was not used to int erpret this result as normal/abnormal . TRIG (test code = 89 mg/dL 30-170 5904289088) LDL CHOL (test code = 33 mg/dL See_Comment [Auto mated message] 78555-9) The system [employer] generated this result transmitted ref erence range: <=160. T he reference range was not used to int erpret this result as normal/abnormal . VLDL (test code = 18 mg/dL 5-60 3313737407) Lab Interpretation (test Abnormal code = 44650-0) [facility] HospitalGlycosylated Hemoglobin (A1C)2020-01-16 09:03:00 Test Item Value [...] Indicated Lab Interpretation Abnormal (test code = 17608-5) [facility] [id number] 05:48:18Charanjit Heck MD ? ? 01/15/2020 11:48 [...] review of old charts and examination of patientUnCovenant Medical CenterProthrombin Time (PT) / [id number] 05:28:00 Test Item Value Reference Range Interpretation [...] tions. Lab Interpretation (test Normal code = 91217-2) [facility] HospitalaPTT2020-03-02 05:27:00 Test Item Value Reference Range Interpretation Comments APTT Patient (test See_Comment [Automat ed code = 3173-2) message] The system which generated this result transmitted reference range : 23 - 38 Seconds . The reference range was not used to interpr et this result as normal/abnormal . ALYSSA (test code = ALYSSA) The [facility] patient population mean normal value for aPTT is 30 seconds. Lab Interpretation Normal (test code = 95287-8) [facility] HospitalTroponin [id number] 05:11:00 Test Item Value Reference Range Interpretation Comments TROPONIN I (test 0.075 ng/mL See_Comment H [Automated code = 1897151788) message] The system which generated this result [...] ? Lab Interpretation Abnormal (test code = 98228-2) [facility] HospitalN-TERMINAL [id number] 05:08:00 Test Item Value Reference Range Interpretation Comments NT-proBNP (test code 896 pg/mL See_Comment H [Autom ated = 6652529554) message] The system which generated this result transmitted reference range : <=450. The reference range was not used to interpret this result as normal/abnormal . ALYSSA (test code = ALYSSA) Biotin has been reported to cause a negative bias, interpret results relative to patient's use of biotin. Lab Interpretation Abnormal (test code = 71583-2) [facility] (NA, K, CL, CO2, GLUCOSE, BUN, CREATININE, CA)2020-01-16 04:59:00 Test Item Value Reference Range Interpretation Comments NA (test code = 136 mmol/L 135-145 0743585959) K (test code = 4.0 mmol/L 3.5-5 5748395354) CL (test code = 101 mmol/L 98-108 2861111206) CO2 TOTAL (test code = 27 mmol/L 23-31 1684120844) AGAP (test code = 2-16 3327862112) BUN (test code = 17 mg/dL 7-23 4230861516) GLUCOSE (test code = 445 mg/dL 70-110 H 7416298786) CREATININE (test code = 1.29 mg/dL 0.6-1.25 H 6080961025) CALCIUM (test code = 8.8 mg/dL 8.6-10.6 3239583199) eGFR Calculation mL/min/1.73m2 (Non-) (test code = 9695940567) eGFR Calculation mL/min/1.73m2 () (test code = 1334861822) ALYSSA (test code = ALYSSA) Association of [...] tests). Lab Interpretation Abnormal (test code = 43144-4) [facility] HospitalHepatic Function Panel (ALB, T.PRO, BILI T, BU/BC, ALT, AST, ALK PHOS)2020-01-16 04:59:00 Test Item Value Reference Range Interpretation Comments TOTAL BILI (test code = 2629594311) 1.3 mg/dL 0.1-1.1 H BILI UNCON (test code = 6913335701) 1.1 mg/dL 0.1-1.1 BILI CONJ (test code = 3990705782) 0.0 mg/dL 0-0.3 T PROTEIN (test code = 2822284020) 6.3 g/dL 6.3-8.2 ALBUMIN (test code = 7232352306) 3.9 g/dL 3.5-5 ALK PHOS (test code = 3485731298) 67 U/L 34-122 ALTv (test code = 1742-6) 15 U/L 5-50 AST(SGOT) (test code = 6344689004) 23 U/L 13-40 Lab Interpretation (test code = Abnormal 26465-9) [facility] 1 [id number] 04:54:13Impression: Moderate cardiomegaly without acute pulmonary process. RL: 460 AFC: [id number] Indication: Chest pain Comparison: None available Findings: Single AP view of the chest. The cardiopericardial silhouette ismoderately enlarged. The lungs are clear bilaterally. The visualized bonythorax is intact. A thoracic neurostimulator device is in place. [facility], Radiant Results Inft User - 01/15/2020 10:55 PM CSTIndication: Chest painComparison: None availableFindings: Single AP view of the chest. The cardiopericardial silhouette ismoderately enlarged. The lungs are clear bilaterally. The visualized bonythorax is intact. A thoracic neurostimulator device is in place.IMPRESSIONImpression:Moderate cardiomegaly without acute pulmonary process.RL: 460AFC: [id number] signed by Esperanza Rosado MD, PhD at 01/15/2020 10:54 PMUnSchuyler [facility] Hospital WITH [id number] 04:51:00 Test Item Value Reference Range Interpretation [...] RDW-SD (test code = 40.7 fL 38.5-51.6 38857-4) RDW-CV (test code = 12.8 % 12.1-15.4 788-0) PLT (test code = See_Comment L [Automated 777-3) message] The sy stem which generated this result transmitted reference range : 150 - 328 10*3/ ?L. The reference r corey was not used to interpret this result as normal/abnormal . MPV (test code = 10.6 fL 9.8-13 95355-5) IPF % (test code = 2.8 % 1.2-10.7 Platelet count 6308103728) measured by fluorescence method. NRBC/100 WBC (test See_Comment [Automat ed code = 2091719761) message] The system which generated this result transmitted reference range : 0.0 - 10.0 /100 WBCs. The refer ence range was not u sed to interpret th is result as normal/abnormal . NRBC x10^3 (test code <0.01 See_Comment [Auto mated = 5977588507) message] The s ystem which generated this result transmitted reference range : 10*3/?L. The reference range was not used to interpret this result as normal/abnormal . GRAN MAT (NEUT) % 56.0 % (test code = 770-8) IMM GRAN % (test code 0.20 % = 7981567987) LYMPH % (test code = 30.5 % 736-9) MONO % (test code = 9.6 % 5905-5) EOS % (test code = 2.8 % 713-8) BASO % (test code = 0.9 % 706-2) GRAN MAT x10^3(ANC) 2.98 10*3/uL 1.99-6.95 (test code = 5357480943) IMM GRAN x10^3 (test <0.03 0-0.06 code = 7233577179) LYMPH x10^3 (test code 1.62 10*3/uL 1.09-3.23 = 731-0) MONO x10^3 (test code 0.51 10*3/uL 0.36-1.02 = 742-7) EOS x10^3 (test code = 0.15 10*3/uL 0.06-0.53 711-2) BASO x10^3 (test code 0.05 10*3/uL 0.01-0.09 = 704-7) Lab Interpretation Abnormal (test code = 64653-6) [facility]"
[2022-01-07] MEDS ORDERED: LIDOCAINE 4% PATCH ONE (03:13)
[2022-01-07 03:34] LABS: Absolute Lymphocytes (CBC) 1.7 K/uL (0.7-4.9); Hematocrit 31.5 % (39.6-49.0); Lymphocytes % 25.7 % (15.3-44.8); MPV 7.9 fL (7.6-11.3); RBC Red Blood Cell Count 3.42 M/uL (4.33-5.43)
[2022-01-07 03:35] LABS: Protime INR 1.01
[2022-01-07 03:50] LABS: Albumin 3.1 g/dL (3.4-5.0); Bilirubin Direct 0.2 mg/dL (0-0.2); Bilirubin Total 0.7 mg/dL (0.2-1.0); Magnesium 1.9 mg/dL (1.8-2.4); Potassium 4.1 mmol/L (3.5-5.1); Protein, Total 6.7 g/dL (6.4-8.2); Troponin High Sensitivity 55.5 pg/mL (<58.9)
--- NOTE | 2022-01-07 04:53 | ER ---
Nurse's Notes [facility] Name: Demetrius Sarmiento Age: 81 yrs Sex: Male : 1940 Arrival Date: 01/07/2022 Time: 02:47 Bed 7 Private MD: Diagnosis: Low back pain-Chronic Presentation: 01/07 02:52 Chief complaint: EMS states: Lower back pain x 1 week (Lidocaine patch on lower back) st1 which is helping some. Patient was found faint and diaphoretic outside by EMS. Coronavirus screen: Vaccine status: Patient reports receiving the 2nd dose of the covid vaccine. Moderna. Ebola Screen: No symptoms or risks identified at this time. Initial Sepsis Screen: Does the patient meet any 2 criteria? No. Patient's initial sepsis screen is negative. Does the patient have a suspected source of infection? No. Patient's initial sepsis screen is negative. Risk Assessment: Do you want to hurt yourself or someone else? Patient reports no desire to harm self or others. Onset of symptoms was December 31, 2021. 02:52 Method Of Arrival: EMS: [facility] st1 02:58 Acuity: LANCE 3 st1 Triage Assessment: 02:57 General: Appears in no apparent distress. comfortable, Behavior is calm, cooperative. st1 Pain: Complains of pain in back- Lower. Musculoskeletal: No deficits noted. Historical: - Allergies: 02:56 No Known Allergies; st1 - Home Meds: 02:56 aspirin 81 mg Oral TbEC 1 tab once daily [Active]; atorvastatin 40 mg Oral tab 1 tab st1 nightly [Active]; potassium chloride 10 mEq Oral TbER 1 tab once daily [Active]; Januvia 50 mg Oral tab 1 tab once daily [Active]; isosorbide mononitrate 120 mg Oral Tb24 1 tab once daily [Active]; furosemide 20 mg Oral tab 1 tab once daily [Active]; donepezil 5 mg Oral tab 1 tab nightly [Active]; clopidogrel 75 mg Oral tab 1 tab once daily [Active]; - PMHx: 02:56 CAD; cardiac arrest; CHF; chronic kidney disease; Chronic pain; Diabetes - IDDM; High st1 Cholesterol; Hypertension; Myocardial infarction; - Immunization history:: Adult Immunizations up to date, Client reports receiving the 2nd dose of the Covid vaccine, Moderna Pneumococcal vaccine is up to date, Flu vaccine is up to date. - Social history:: Smoking status: Patient/guardian denies using tobacco, but has a distant history of tobacco abuse, Patient/guardian denies using alcohol, street drugs, IV drugs, tobacco products. Screenin:59 Abuse screen: Denies threats or abuse. Nutritional screening: No deficits noted. st1 Tuberculosis screening: No symptoms or risk factors identified. Fall Risk None identified. No fall in past 12 months (0 pts). No secondary diagnosis (0 pts). IV access (20 points). Ambulatory Aid- None/Bed Rest/Nurse Assist (0 pts). Gait- Normal/Bed Rest/Wheelchair (0 pts) Mental Status- Oriented to own ability (0 pts). Total Torres Fall Scale indicates No Risk (0-24 pts). Assessment: 03:01 Reassessment: Blood sugar 291. Neuro: No deficits noted. Respiratory: No deficits noted.st1 Vital Signs: 02:51 BP 142 / 68; Pulse 76; Resp 16; Pulse Ox 98% on R/A; Weight 77.11 kg; Height 5 ft. 7 st1 in. (170.18 cm); Pain 4/10; 03:00 Temp 98.6; st1 04:39 BP 163 / 63; Pulse 75; Resp 18; Pulse Ox 98% on R/A; sm5 02:51 Body Mass Index 26.63 (77.11 kg, 170.18 cm) st1 ED Course: 02:47 Patient arrived in ED. wm 02:49 Patty Cabrera RN is Primary Nurse. st1 02:50 Maintain EMS IV. Dressing intact. Good blood return noted. Site clean \T\ dry. Gauge \T\ st 1 site: 20 left ac. 02:55 Esteban Martinez MD is Attending Physician. kdr 02:56 Triage completed. st1 02:58 Arm band placed on right wrist. st1 03:02 Patient has correct armband on for positive identification. Bed in low position. Call st1 light in reach. Side rails up X 1. monitoring manager on. Pulse ox on. NIBP on. Verbal reassurance given. 03:15 Basic Metabolic Panel Sent. st1 03:15 CBC with Diff Sent. st1 03:15 LFT's Sent. st1 03:15 Troponin HS Sent. st1 03:15 Magnesium Sent. st1 03:15 NT PRO-BNP Sent. st1 03:15 PT-INR Sent. st1 03:34 CBC with Automated Diff Sent. sm5 03:34 Basic Metabolic Panel Sent. sm5 03:50 XRAY Chest (1 view) In Process Unspecified. EDMS 05:18 No provider procedures requiring assistance completed. IV discontinued, intact, st1 bleeding controlled, No redness/swelling at site. Pressure dressing applied. Administered Medications: 03:12 Drug: Lidoderm Patch 5 % (700 mg/patch) 1 patches Route: Topical; Site: affected area; st1 Outcome: 04:53 Discharge ordered by MD. kdr 05:34 Discharged to home via wheelchair. st1 05:34 Condition: stable 05:34 Discharge instructions given to patient, Instructed on discharge instructions, follow up and referral plans. medication usage, Demonstrated understanding of instructions, follow-up care, medications. 05:35 Patient left the ED. st1 Signatures: Dispatcher [employer] EDNY Esteban Martinez MD MD kdr Marsh, Wendy wm Mazur, Sarah, RN RN sm5 Patty Cabrera, HERBIE RN st1 Corrections: (The following items were deleted from the chart) 02:58 02:52 Acuity: LANCE 3 st1 st1
--- NOTE | 2022-01-07 04:53 | EDPHYS ---
Physician Documentation [facility] Name: Demetrius Sarmiento Age: 81 yrs Sex: Male : 1940 Arrival Date: 01/07/2022 Time: 02:47 Bed 7 Private MD: ED Physician Esteban Martinez HPI: 01/07 03:25 This 81 yrs old Male presents to ER via EMS with complaints of Back Pain. kdr 03:25 The patient presents with pain that is chronic, with no known mechanism of injury, The kdr patient has a history of chronic back pain which occasionally gets worse. Tonight was 1 of those times when the pain got worse and he attempted to place a Lidoderm patch but his pain continued. Given the fact that his pain was getting worse, the patient was concerned that given his cardiac history that his back pain may influence or affect his heart. Therefore he called EMS. He was not having chest pain or any cardiac related issues prior to nor since calling EMS. The symptoms are located in the low back. Onset: The symptoms/episode began/occurred Chronically. The pain does not radiate. Associated signs and symptoms: The patient has no apparent associated signs or symptoms. The problem was sustained from a chronic condition, degenerative joint disease. Modifying factors: The patient symptoms are alleviated by nothing, the patient symptoms are aggravated by any movement. Severity of symptoms: At their worst the symptoms were severe, just prior to arrival, in the emergency department the symptoms have improved, The patient states that the Lidoderm patch that he placed at home has made his chronic low back pain that had exacerbated tolerable at this time. The patient has not experienced similar symptoms in the past. The patient has not recently seen a physician. Historical: - Allergies: 02:56 No Known Allergies; st1 - Home Meds: 02:56 aspirin 81 mg Oral TbEC 1 tab once daily [Active]; atorvastatin 40 mg Oral tab 1 tab st1 nightly [Active]; potassium chloride 10 mEq Oral TbER 1 tab once daily [Active]; Januvia 50 mg Oral tab 1 tab once daily [Active]; isosorbide mononitrate 120 mg Oral Tb24 1 tab once daily [Active]; furosemide 20 mg Oral tab 1 tab once daily [Active]; donepezil 5 mg Oral tab 1 tab nightly [Active]; clopidogrel 75 mg Oral tab 1 tab once daily [Active]; - PMHx: 02:56 CAD; cardiac arrest; CHF; chronic kidney disease; Chronic pain; Diabetes - IDDM; High st1 Cholesterol; Hypertension; Myocardial infarction; - Immunization history:: Adult Immunizations up to date, Client reports receiving the 2nd dose of the Covid vaccine, Moderna Pneumococcal vaccine is up to date, Flu vaccine is up to date. - Social history:: Smoking status: Patient/guardian denies using tobacco, but has a distant history of tobacco abuse, Patient/guardian denies using alcohol, street drugs, IV drugs, tobacco products. ROS: 03:25 Constitutional: Negative for fever, chills, and weight loss, Eyes: Negative for injury, kdr pain, redness, and discharge, ENT: Negative for injury, pain, and discharge, Neck: Negative for injury, pain, and swelling, Cardiovascular: Negative for chest pain, palpitations, and edema, Respiratory: Negative for shortness of breath, cough, wheezing, and pleuritic chest pain, Abdomen/GI: Negative for abdominal pain, nausea, vomiting, diarrhea, and constipation, : Negative for injury, bleeding, discharge, and swelling, MS/Extremity: Negative for injury and deformity, Skin: Negative for injury, rash, and discoloration, Neuro: Negative for headache, weakness, numbness, tingling, and seizure activity. Psych: Negative for depression, anxiety, suicide ideation, homicidal ideation, and hallucinations, Allergy/Immunology: Negative for hives, rash, and allergies, Endocrine: Negative for neck swelling, polydipsia, polyuria, polyphagia, and marked weight changes, Hematologic/Lymphatic: Negative for swollen nodes, abnormal bleeding, and unusual bruising. 03:25 Back: Positive for pain at rest, pain with movement, of the lumbar area, Negative for injury or acute deformity. Exam: 03:24 ECG was reviewed by the Attending Physician. kdr 03:25 Constitutional: This is a well developed, well nourished patient who is awake, alert, kdr and in no acute distress. Head/Face: Normocephalic, atraumatic. Eyes: Pupils equal round and reactive to light, extra-ocular motions intact. Lids and lashes normal. Conjunctiva and sclera are non-icteric and not injected. Cornea within normal limits. Periorbital areas with no swelling, redness, or edema. Neck: Trachea midline, no thyromegaly or masses palpated, and no cervical lymphadenopathy. Supple, full range of motion without nuchal rigidity, or vertebral point tenderness. No Meningismus. Chest/axilla: Normal chest wall appearance and motion. Nontender with no deformity. No lesions are appreciated. Cardiovascular: Regular rate and rhythm with a normal S1 and S2. No gallops, murmurs, or rubs. Normal PMI, no JVD. No pulse deficits. Respiratory: Lungs have equal breath sounds bilaterally, clear to auscultation and percussion. No rales, rhonchi or wheezes noted. No increased work of breathing, no retractions or nasal flaring. Abdomen/GI: Soft, non-tender, with normal bowel sounds. No distension or tympany. No guarding or rebound. No evidence of tenderness throughout. Skin: Warm, dry with normal turgor. Normal color with no rashes, no lesions, and no evidence of cellulitis. MS/ Extremity: Pulses equal, no cyanosis. Neurovascular intact. Full, normal range of motion. Neuro: Awake and alert, GCS 15, oriented to person, place, time, and situation. Cranial nerves II-XII grossly intact. Motor strength 5/5 in all extremities. Sensory grossly intact. Cerebellar exam normal. Normal gait. Psych: Awake, alert, with orientation to person, place and time. Behavior, mood, and affect are within normal limits. 03:25 Back: pain, that is moderate, of the lumbar area, ROM is painful, normal spinal alignment noted, vertebral tenderness, is appreciated at lumbar spine. Vital Signs: 02:51 BP 142 / 68; Pulse 76; Resp 16; Pulse Ox 98% on R/A; Weight 77.11 kg; Height 5 ft. 7 st1 in. (170.18 cm); Pain 4/10; 03:00 Temp 98.6; st1 04:39 BP 163 / 63; Pulse 75; Resp 18; Pulse Ox 98% on R/A; sm5 02:51 Body Mass Index 26.63 (77.11 kg, 170.18 cm) st1 MDM: 03:25 Data reviewed: vital signs, nurses notes, lab test result(s), EKG. Counseling: I had a kdr detailed discussion with the patient and/or guardian regarding: the historical points, exam findings, and any diagnostic results supporting the discharge/admit diagnosis, lab results, radiology results. 04:53 Patient medically screened. [facility] 01/07 03:06 Order name: Glucose, Ancillary Testing; Complete Time: 04:42 EDMS 01/07 03:10 Order name: Basic Metabolic Panel [facility] 01/07 03:10 Order name: CBC with Diff kdr 01/07 03:10 Order name: LFT's; Complete Time: 04:42 [facility] 01/07 03:10 Order name: Magnesium; Complete Time: 04:42 [facility] 01/07 03:10 Order name: NT PRO-BNP; Complete Time: 04:42 [facility] 01/07 03:01 Order name: EKG; Complete Time: 03:01 st1 01/07 03:01 Order name: Blood Glucose Level; Complete Time: 03:01 st1 01/07 03:10 Order name: PT-INR; Complete Time: 04:42 [facility] 01/07 03:10 Order name: Troponin HS; Complete Time: 04:42 [facility] 01/07 03:10 Order name: XRAY Chest (1 view) [facility] 01/07 03:11 Order name: Basic Metabolic Panel; Complete Time: 04:42 EDMS 01/07 03:11 Order name: CBC with Automated Diff; Complete Time: 04:42 EDMS 01/07 03:10 Order name: Cardiac monitoring; Complete Time: 03:15 [facility] 01/07 03:10 Order name: EKG - Nurse/Tech; Complete Time: 03:16 [facility] 01/07 03:10 Order name: IV Saline Lock; Complete Time: 03:11 [facility] 01/07 03:10 Order name: Labs collected and sent; Complete Time: 03:15 [facility] 01/07 03:10 Order name: O2 Per Protocol; Complete Time: 03:11 [facility] 01/07 03:10 Order name: O2 Sat Monitoring; Complete Time: 03:11 kdr EC:24 Rate is 76 beats/min. Rhythm is regular, Sinus Rhythm with PACs. QRS [place] is Normal. [place] kdr interval is normal. QRS interval is normal. Clinical impression: NSR w/ Non-specific ST/T Changes. Administered Medications: 03:12 Drug: Lidoderm Patch 5 % (700 mg/patch) 1 patches Route: Topical; Site: affected area; st1 Disposition Summary: 01/07/22 04:53 Discharge Ordered Location: Home kdr Problem: an acute exacerbation kdr Symptoms: have improved kdr Condition: Stable kdr Diagnosis - Low back pain - Chronic(01/07/22 04:53) kdr Followup: kdr - With: Private Physician - When: 2 - 3 days - Reason: If symptoms return, Further diagnostic work-up, Recheck today's complaints, Continuance of care, Re-evaluation by your physician Discharge Instructions: - Discharge Summary Sheet kdr - Musculoskeletal Pain kdr - Chronic Back Pain, [id number] kdr Forms: - Medication Reconciliation Form kdr - Thank You Letter kdr Prescriptions: - Lidoderm 5 % Topical adhesive patch,medicated - apply 1 patch by TRANSDERMAL route once daily; 20 patch; Refills: 0, Product kdr Selection Permitted - Prednisone 20 mg Oral Tablet - take 1 tablet by ORAL route once daily for 3 days; 3 tablet; Refills: 0, kdr Product Selection Permitted Signatures: Dispatcher [employer] Esteban Sainz MD MD kdr Patty Cabrera RN RN st1 Corrections: (The following items were deleted from the chart) 04:53 04:53 Low back pain kdr kdr
[2022-01-07 05:40] VITALS: O2SAT 98
[2022-01-07 05:41] VITALS: TEMP 98.6
[2022-01-07 05:42] VITALS: BP 163/63
--- NOTE | 2022-01-07 07:22 | EKG ---
Test Date: 2022-01-07 Test Time: 02:59:03 Briar Cutter: GRACIELA MEASUREMENT RESULTS: Intervals: Rate: 76 MT: 172 QRSD: 120 QT: 410 QTc: 461 [place]: P: 43 MT: 172 QRS: -63 T: 144 INTERPRETIVE STATEMENTS: Sinus rhythm with occasional premature ventricular complexes Left axis deviation Left ventricular hypertrophy with QRS widening T wave abnormality, consider lateral ischemia Abnormal ECG Compared to ECG 12/31/2021 22:24:19 Left ventricular hypertrophy now present Prolonged QT interval no longer present T-wave abnormality still present Possible ischemia still present Electronically Signed On 01-07-22 07:22:27 FURNITURE MAKER by Gibson Davidson
--- NOTE | 2022-01-07 08:39 | RAD REPORT ---
EXAM DESCRIPTION: RAD - Chest Single View - 01/07/2022 3:50 am CLINICAL HISTORY: back pain Chest pain. COMPARISON: Chest Single View dated 12/31/2021; Chest Single View dated 12/18/2021; Chest Single View d ated 12/03/2021; Chest Single View dated 11/30/2021 FINDINGS: Portable technique limits examination quality. The lungs are grossly clear. The heart is normal in size. No displaced fractures. IMPRESSION: No acute intrathoracic process suspected.
== END 2022-01-07 05:35 | disposition home or self-care (01) ==
LOC: ER 02:45
DX: M54.50 Low back pain, unspecified (principal); E11.22 Type 2 diabetes mellitus with diabetic chronic kidney disease; I13.0 Hypertensive heart and chronic kidney disease with heart failure and stage 1 through stage 4 chronic kidney disease, or unspecified chronic kidney disease; N18.9 Chronic kidney disease, unspecified; I50.9 Heart failure, unspecified; Z79.82 Long term (current) use of aspirin
CPT/HCPCS: 36415; 71045; 80048; 80076; 82947; 83735; 83880; 84484; 85025; 85610; 93005; 99284

== ENCOUNTER 2022-01-16 12:01 | Emergency (ER) | payer OTHER ==
--- OUTSIDE RECORDS SUMMARY | 2022-01-16 12:17 | XMS REPORT | Continuity of Care Document ---
:1940 Author Organization [facility] t Address [address] [place] [address] Care Team Providers Name Role Phone Andres [...] Type Policy Number Effective Date Expiration Date [facility] [id number] 2019 DUAL COMPLETE HMO 00:00:00 MEDICAID OF [place] [id number] 2018 00:00:00 Problems Condition Condition Condition Status Onset Resolution Last Treating Co mments Source Name Details Category Date Date Treatment Clinician Date Unstable Unstable Disease Active Unive rs angina angina 5-07 ity of 00:00: [place] [facility] ALBA (acute ALBA (acute Disease Active 2020- U nivers kidney kidney 4-21 ity of injury) injury) 00:00: [place] [facility] Chest pain Chest pain Disease Active 2019- U nivers 4-21 ity of 00:00: [place] [facility] Chest pain Chest pain Disease Active 2020- U 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 4-15 it y of 00:00: [place] [facility] 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 00:00: [place] and and 00 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 2018-11 U nivers lobe lobe 1-06 ity of pneumonia pneumonia 00:00: [facility] 00 Medical Branch PNA PNA Disease Active 2018-11 Univers (pneumonia (pneumonia 0-25 it y of ) ) 00:00: [place] [facility] Acute on Acute on Disease Active 2018-11 Unive rs chronic chronic 0-25 ity of combined combined 00:00: [place] systolic systolic 00 Medica l and and Branch 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 Dyspnea Dyspnea Disease Active 2018-11 Univers 0-23 ity of 00:00: [place] [facility] CHF CHF Disease Active 2019 Univers exacerbati exacerbati 2-17 it y of on on 00:00: [place] [facility] Essential Essential Disease Active Uni vers hypertensi hypertensi 2-17 it y of on on 00:00: [place] [facility] 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 00:00: [place] without without 00 Medical complicati complicati Br anch on, on, without without long-term long-term current current use of use of insulin insulin CHF CHF Disease Active Univers exacerbati exacerbati 2-17 it y of on on 00:00: [place] [facility] Acute on Acute on Disease [...] 00:00: [place] involving involving 00 Medi bird[place] coronary 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 00:00: [place] disease disease 00 Medical Branch Coronary Coronary Disease Active Unive rs artery artery 1- ity of disease disease 00:00: [place] involving involving 00 Medi birdie [place] coronary 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[place] 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 [...] Allergie - Clear s 00:00: [place] 00 [facility] NO KNOWN Drug Active Univers ALLERGIE Class ity of S [facility] Social History Social Habit Start Date Stop Date Quantity Comments Source Exposure to [facility] University of SARS-CoV-2 (event) [facility] History of tobacco User of Univer sity of use smokeless [facility] tobacco [place] Alcohol intake 2021-10-31 2021-10-31 Current University of 00:00:00 00:00:00 non-drinker of [facility] [place] [facility] alcohol Branch (finding) Cigarettes smoked 2018-12-11 2018-12-11 Univers ity of current (pack per 00:00:00 00:00:00 [facility] ) - Reported Branch Cigarette 2018-12-11 2018-12-11 University of pack-years 00:00:00 00:00:00 [facility] Tobacco use and 2018-12-11 2018-12-11 Former user Universi ty of exposure 00:00:00 00:00:00 [facility] Sex [birth year] At [birth year] Universit y of 00:00:00 00:00:00 [place] [facility] Smoking Status Start Date Stop Date Source Former smoker 2018-12-11 00:00:00 2018-12-11 00:00:00 [facility] Medications Ordered Filled Start Stop Current Ordering Indication Dosage Frequency Signature Comments Components Source Medication Medication Date Date Medication? Clinician (SIG) Name Name aspirin 81 2020-11- Yes [id number] 81mg Take 1 Univers mg chewable -12-04 tablet by it y of tablet 00:00: 05:59 mouth [place] 00 :00 daily for Medical 30 days. Branch clopidogreL 2020-11- Yes [id number] 75mg Take 1 Univers 75 mg -12-04 tablet by ity of tablet 00:00: 05:59 mouth [place] 00 :00 daily for Medical 30 days. Branch furosemide 2020-11- Yes [id number] 20mg Take 1 Univers 20 mg -12-04 tablet by ity of tablet 00:00: 05:59 mouth [place] 00 :00 daily for Medical 30 days. Branch aspirin 81 2020-11- Yes [id number] 81mg Take 1 Univers mg chewable 2-12-04 tablet by it y of tablet 00:00: 05:59 mouth [place] 00 :00 daily for Medical 30 days. Branch clopidogreL 2020-11- Yes [id number] 75mg Take 1 Univers 75 mg 2-12-04 tablet by ity of tablet 00:00: 05:59 mouth [place] 00 :00 daily for Medical 30 days. Branch furosemide 2020-11- Yes [id number] 20mg Take 1 Univers 20 mg 01-04 tablet by ity of tablet 00:00: 05:59 mouth [place] 00 :00 daily for Medical 30 days. Branch aspirin 81 2020-11- Yes [id number] 81mg Take 1 Univers mg chewable 01-04 tablet by it y of tablet 00:00: 05:59 mouth [place] 00 :00 daily for Medical 30 days. Branch clopidogreL 2020-11- Yes [id number] 75mg Take 1 Univers 75 mg 01-04 tablet by ity of tablet 00:00: 05:59 mouth [place] 00 :00 daily for Medical 30 days. Branch furosemide 2020-11- Yes [id number] 20mg Take 1 Univers 20 mg 01-04 [...] by mouth ity of 14:14: 00:00 daily. [place] 53 :00 Medical Branch isosorbide 2020-11 Yes 60mg 60 mg, Unive rs mononitrate 2-18 Oral, BID, it y of (IMDUR) 24 14:00: First dose [place] hr tablet 00 (after Medical 60 mg last Branch modificati on) on 11/02/21 at 0800, Until Discontinu ed, Routine QUEtiapine 2020-11 Yes [id number] 25mg Take 1 Univers 25 mg 2-18 tablet by ity of tablet 00:00: mouth at [place] [address] bedtime as Medical needed Branch (agitation /insomnia) . QUEtiapine 2020-11 Yes [id number] 25mg Take 1 Univers 25 mg 2-18 tablet by ity of tablet 00:00: mouth at [place] 00 bedtime as Medical needed Branch (agitation /insomnia) . QUEtiapine 2020-11 Yes [id number] 25mg Take 1 Univers 25 mg 2-18 tablet by ity of tablet 00:00: mouth at [place] 00 bedtime as Medical needed Branch (agitation /insomnia) . isosorbide 2020-11- Yes [id number] 60mg Take 1 Univers mononitrate 2-18 -18 tablet by it y of 60 mg 24 hr 00:00: 05:59 mouth 2 [place] tablet 00 :00 (two) Medical times Branch daily for 30 days. metoprolol 2020-11- Yes [id number] 37.5mg Take 1.5 Univers succinate 2-18 -18 tablets by ity of XL 25 mg 24 00:00: 05:59 mouth 2 [place] tablet 00 :00 (two) Medical times Branch daily for 30 days. isosorbide 2020-11- Yes [id number] 60mg Take 1 Univers mononitrate 2-18 01-18 tablet by it y of 60 mg 24 hr 00:00: 05:59 mouth 2 [place] tablet 00 :00 (two) Medical times Branch daily for 30 days. metoprolol 2020-11- Yes [id number] 37.5mg Take 1.5 Univers succinate 2-18 -18 tablets by ity of XL 25 mg 24 00:00: 05:59 mouth 2 [place] tablet 00 :00 (two) Medical times Branch daily for 30 days. isosorbide 2020-11- Yes [id number] 60mg Take 1 Univers mononitrate 01-03 tablet by it y of 60 mg 24 hr 00:00: 05:59 mouth 2 [place] tablet 00 :00 (two) Medical times Branch daily for 30 days. metoprolol 2020-11- Yes [id number] 37.5mg Take 1.5 Univers succinate 01-03 tablets [...] First dose [place] mg 00 on [facility] Medical 10/31/21 Branch at 2100, Until Discontinu ed, Routine clopidogreL 2020-11 Yes 75mg 75 mg, Univ ers (PLAVIX) 2-16 Oral, ity of tablet 75 23:30: DAILY, [place] mg 00 First dose Medical on [facility] Branch 10/31/21 at 1730, Until Discontinu ed, Routine sulfur 2020-11- No [id number] 5mL 5 mL, Unive rs hexafluorid 01-01 Intravenou i ty of e microsphr 17:00: 17:00 s, ONCE, 1 [place] (LUMASON) 00 :00 dose, On Medica l injection 5 [facility] Branch mL 10/31/21 at 1100, Routine
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 ers Scale - , AC+HS, ity of Insulin-Reg 13:30: First dose [place] ular + Fsbg 00 on [facility] Medica l Testing 10/31/21 Branch at 0730, Until Discontinu ed, Routine enoxaparin 2020-11- No 1mg/kg 80 mg Uni vers (LOVENOX) 01-01 (rounded ity o f injection 09:00: 14:17 from 78 mg [place] 80 mg 00 :35 = 1 mg/kg Medical ?78 kg), Branch Subcutaneo , Q24H, First dose on [facility] 10/31/21 at 0300, Until Discontinu ed, Routine aspirin 2020-11- No 325mg 325 mg, Unive rs tablet 325 01-01 Oral, ity of mg 08:45: 08:15 ONCE, 1 [place] 00 :00 dose, On Medical [facility] Branch 10/31/21 at 0245, Routine glucagon [...] IV Push, ity of mg 07:36: 05:31 [facility] [place] 09 :07 Starting Medical on [place] Branch [...] 2-16 IV Push, ity of (PF)) 05:32: [place], [place] injection 4 10 Starting Medi birdie mg on Thu Branch 10/30/21 at 2332, Until Discontinu ed, Routine, Nausea and Vomiting (N/V) acetaminoph 2020-11 Yes 650mg 650 mg, Un mel en 2-16 Oral, ity of (TYLENOL) 05:31: Q6[place], [place] tablet 650 56 Starting Medic al mg on Thu Branch 10/30/21 at 2331, Until Discontinu ed, Routine, Pain (scale 1-3) acetaminoph 2020-11 Yes [id number] 1{tbl} 1 tablet, Univers en-codeine 2-16 Oral, ity of (TYLENOL 05:29: Q6HPRN, [place] #3) 300-30 29 Starting Medic al mg [...] ity of mg 23:15: 22:23 ONCE, 1 [place] 00 :00 dose, Mad[facility] Medical 04/25/21 at Branch 1815, STAT acetaminoph 2020- No 1{tbl} 1 tablet, Univers en-codeine 6-10 06-10 Oral, ity of (TYLENOL 19:00: 17:52 ONCE, 1 [place] #3) 300-30 00 :00 dose, Madhavi Medi birdie mg tablet 1 04/25/21 at Br anch tablet 1400, [place] cyclobenzap No 10mg 10 mg, Uni vers rine 6-10 06-10 Oral, ONCE ity of (FLEXERIL) 19:00: 17:52 NOW, 1 [place] tablet 10 00 :00 dose, [place] Medic al mg 04/25/21 at Branch 1400, [place] cyclobenzap Yes [id number] 5mg Take 1 Univers rine 5 mg 6-10 tablet by ity o f tablet 00:00: mouth 3 [place] [address] (three) Medical times [place] daily. cyclobenzap Yes [id number] 5mg Take 1 Univers rine 5 mg 6-10 tablet by ity o f tablet 00:00: mouth 3 [place] 00 (three) Medical times [place] daily. cyclobenzap Yes [id number] 5mg Take 1 Univers rine 5 mg [...] sided low back pain cyclobenzap 2020-0 Yes [id number] 5mg Take 1 Univers rine 5 mg [...] sided low back pain cyclobenzap 2020- Yes [id number] 5mg Take 1 Univers rine 5 mg [...] [place] mg 00 First dose Medical on [facility] 03/24/20 at 0900, Until Discontinu ed, Routine MULTIVITAMI 2020-0 2020- No Take by U nivers N ORAL 5- 05-08 mouth. ity of 03:38: 00:00 [place] 54 :00 Medical Branch MULTIVITAMI 2020-0 Yes Take by Un mel N ORAL 5-09 mouth. ity of 02:01: [place] 35 [facility] atorvastati 2020-0 Yes 40mg 40 mg, Univ [...] Discontinu ed, Routine aspirin 81 2020-0 Yes [id number] 81mg Take 1 U nivers mg chewable 5-09 tablet by ity of tablet 00:00: mouth [place] 00 daily with Medical breakfast. Branch furosemide 2020-0 Yes [id number] 20mg Take 1 U nivers 20 mg 5-09 tablet by ity of tablet 00:00: mouth [place] 00 daily. Medical Branch aspirin 81 2020-0 Yes [id number] 81mg Take 1 U nivers mg chewable 5-09 tablet by ity of tablet 00:00: mouth [place] 00 daily with Medical breakfast. Branch furosemide 2020-0 Yes [id number] 20mg Take 1 U nivers 20 mg 5-09 tablet by ity of tablet 00:00: mouth [place] 00 daily. [facility] Branch aspirin 81 2020-0 Yes [id number] 81mg Take 1 U nivers mg chewable 5-09 tablet by ity of tablet 00:00: mouth [place] 00 daily with Medical breakfast. Branch furosemide 2020-0 Yes [id number] 20mg Take 1 U nivers 20 mg 5-09 tablet by ity of tablet 00:00: mouth [place] 00 daily. Medical Branch aspirin 81 2020-0 Yes [id number] 81mg Take 1 U nivers mg chewable 5-09 tablet by ity of tablet 00:00: mouth [place] 00 daily with Medical breakfast. Branch furosemide 2020-0 Yes [id number] 20mg Take 1 U nivers 20 mg 5-09 tablet by ity of tablet 00:00: mouth [place] 00 daily. Medical Branch aspirin 81 2020-0 Yes [id number] 81mg Take 1 U nivers mg chewable 5-09 tablet by ity of tablet 00:00: mouth [place] 00 daily with Medical breakfast. Branch furosemide 2020-0 Yes [id number] 20mg Take 1 U nivers 20 mg 5-09 tablet by ity of tablet 00:00: mouth [place] 00 daily. Medical Branch aspirin 81 2020-0 Yes [id number] 81mg Take 1 U nivers mg chewable 5-09 tablet by ity of tablet 00:00: mouth [place] 00 daily with Medical breakfast. Branch furosemide 2020-0 Yes [id number] 20mg Take 1 U nivers 20 mg 5-09 tablet by ity of tablet 00:00: mouth [place] 00 daily. Medical Branch aspirin 81 2020-0 Yes [id number] 81mg Take 1 U nivers mg chewable 5-09 tablet by ity of tablet 00:00: mouth [place] 00 daily with Medical breakfast. Branch furosemide 2020-0 Yes [id number] 20mg Take 1 U nivers 20 mg 5-09 tablet by ity of tablet 00:00: mouth [place] 00 daily. Medical Branch aspirin 81 2020-0 Yes [id number] 81mg Take 1 U nivers mg chewable 5-09 tablet by ity of tablet 00:00: mouth [place] 00 daily with Medical breakfast. Branch furosemide 2020-0 Yes [id number] 20mg Take 1 U nivers 20 mg 5-09 tablet by ity of tablet 00:00: mouth [place] 00 daily. Medical Branch aspirin 81 2020-0 Yes [id number] 81mg Take 1 U nivers mg chewable 5-09 tablet by ity of tablet 00:00: mouth [place] 00 daily with Medical breakfast. Branch furosemide 2020-0 Yes [id number] 20mg Take 1 U nivers 20 mg 5-09 tablet by ity of tablet 00:00: mouth [place] 00 daily. Medical Branch aspirin 81 2019-2020- No [id number] 81mg Take 1 Univers mg chewable 03-24 tablet by it y of tablet 00:00: 00:00 mouth [place] 00 :00 daily with Medical breakfast. Branch furosemide 2019-2020- No [id number] 20mg Take 1 Univers 20 mg 03-24 tablet by ity of tablet 00:00: 00:00 mouth [place] 00 :00 daily. Medical Branch isosorbide 2019-2019- No [id number] 90mg Take 3 Univers mononitrate 03-24-08 tablets by i ty of 30 mg 24 hr 00:00: 00:00 mouth [place] tablet 00 :00 daily. Medical Branch isosorbide 2019-2019- No [id number] 90mg Take 3 Univers mononitrate 03-24-08 tablets by i ty of 30 mg 24 hr 00:00: 00:00 mouth [place] tablet 00 :00 daily. Medical Branch maalox/lido 2020-0 2020- No 5mL 5 mL, [facility] 2 03-23 05-08 Oral, ity of %viscous 20:45: 20:56 ONCE, 1 [place] 1:1 00 :00 dose, Fri Medical suspension 03/23/20 at [facility] (COMPOUNDED 1545, ) Routine maalox/lido 2020-0 2020- No 5mL 5 mL, [facility] 2 03-23 05-08 Oral, ity of %viscous 20:45: 20:56 ONCE, [place] 1: 00 :00 dose, Fri Medical suspension 03/23/20 at [facility] (COMPOUNDED 1545, ) Routine acetaminoph 2020-0 Yes [...] IV Push, ity of mg 07:59: Q4HPRN, [place] [address] Starting Medical [facility] 03/23/20 Branch at 0259, Until Discontinu ed, Routine, Chest pain morpHINE 2020-0 Yes 2mg 2 mg, Slow Uni vers injection 2 -08 IV Push, ity of mg 07:59: Q4HPRN, [place] [address] Starting Medical [facility] 03/23/20 Branch at 0259, Until Discontinu [...] Fri Medi birdie (4 %) 03/23/20 at [place] infusion 2 0245, g Routine KCL 2020-0 [...] of 10 mL with 04:01: 00:00 intravenou [place] sodium 03 :00 sly once Medical chloride now. Branch 2.5 mEq/mL SolP 17.125 mEq acetaminoph 2020-0 Yes 650mg 650 mg, Un mel en 03-23 Oral, ity of (TYLENOL) 02:51: Q6HPRN, [place] tablet 650 29 Starting Medic al mg [facility] 03/22/20 Branch at 2151, Until Discontinu ed, Routine, Pain (scale 1-3) acetaminoph 2020-0 Yes 650mg 650 mg, Un mel en 03-23 Oral, ity of (TYLENOL) 02:51: Q6HPRN, [place] tablet 650 29 Starting Medic al mg [facility] 03/22/20 Branch at 2151, Until Discontinu ed, Routine, Pain (scale 1-3) nitroglycer 2020-0 Yes .4mg 0.4 mg, Uni vers in 03-23 Sublingual ity of (NITROSTAT) 02:38: , Q5MIN [place] as sublingual 00 PRN, 3 Medical tablet 0.4 doses, Branch mg Starting [facility] 03/22/20 at 2138, Until Discontinu ed, ADAMA, Chest pain nitroglycer 2020-0 Yes .4mg 0.4 mg, Uni vers in 03-23 Sublingual ity of (NITROSTAT) 02:38: , Q5MIN [place] as sublingual 00 PRN, 3 Medical tablet 0.4 doses, Branch mg Starting [facility] 03/22/20 at 2138, Until Discontinu ed, [...] [place] mg 00 :00 dose, [facility] 03/22/20 at Branch 2145, [place] isosorbide 2020-0 Yes [id number] 90mg Take 1.5 Univers mononitrate 5-08 tablets by it y of 60 mg 24 hr 00:00: mouth [place] tablet 00 daily. [facility] isosorbide 2020-0 Yes [id number] 90mg Take 1.5 Univers mononitrate 5-08 tablets by it y of 60 mg 24 hr 00:00: mouth [place] tablet 00 daily. [facility] isosorbide 2020-0 Yes [id number] 90mg Take 1.5 Univers mononitrate 5-08 tablets by it y of 60 mg 24 hr 00:00: mouth [place] tablet 00 daily. [facility] isosorbide 2020-0 Yes [id number] 90mg Take 1.5 Univers mononitrate 5-08 tablets by it y of 60 mg 24 hr 00:00: mouth [place] tablet 00 daily. [facility] isosorbide 2020-0 Yes [id number] 90mg Take 1.5 Univers mononitrate 5-08 tablets by it y of 60 mg 24 hr 00:00: mouth [place] tablet 00 daily. [facility] isosorbide 2020-0 Yes [id number] 90mg Take 1.5 Univers mononitrate 5-08 tablets by it y of 60 mg 24 hr 00:00: mouth [place] tablet 00 daily. [facility] isosorbide 2020-0 Yes [id number] 90mg Take 1.5 Univers mononitrate 5-08 tablets by it y of 60 mg 24 hr 00:00: mouth [place] tablet 00 daily. [facility] isosorbide 2020-0 Yes [id number] 90mg Take 1.5 Univers mononitrate 5-08 tablets by it y of 60 mg 24 hr 00:00: mouth [place] tablet 00 daily. [facility] isosorbide 2020-0 Yes [id number] 90mg Take 1.5 Univers mononitrate 5-08 tablets by it y of 60 mg 24 hr 00:00: mouth [place] tablet 00 daily. [facility] isosorbide 2020-0 2020- No [id number] 90mg Take 1.5 Univers mononitrate 5-08 12-18 tablets by i ty of 60 mg 24 hr 00:00: 00:00 mouth [place] tablet 00 :00 daily. Medical Branch acetaminoph 2020-0 2020- No [id number] 975mg Take 3 Univers en 325 mg 5-08 05-19 tablets by ity of tablet 00:00: 04:59 mouth [place] 00 :00 every 8 Medical (eight) Branch hours for 10 days. acetaminoph 2020-0 2020- No [id number] 975mg Take 3 Univers en 325 mg 5-08 05-19 tablets by ity of tablet 00:00: 04:59 mouth [place] 00 :00 every 8 Medical (eight) Branch hours for 10 days. acetaminoph 2020-0 2020- No [id number] 975mg Take 3 Univers en 325 mg 5-08 05-19 tablets by ity of tablet 00:00: 04:59 mouth [place] 00 :00 every 8 Medical (eight) Branch hours for 10 days. acetaminoph 2020-0 2020- No [id number] 975mg Take 3 Univers en 325 mg 5-08 05-19 tablets by ity of tablet 00:00: 04:59 mouth [place] 00 :00 every 8 Medical (eight) Branch hours for 10 days. acetaminoph 2020-0 2020- No [id number] 975mg Take 3 Univers en 325 mg 5-08 05-19 tablets by ity of tablet 00:00: 04:59 mouth [place] 00 :00 every 8 Medical (eight) Branch hours for 10 days. lidocaine 5 2019- No [id number] 1{patch Apply 1 Univers % (700 5-08 05-09 } Patch to ity of mg/patch) 00:00: 04:59 area(s) [place] patch 00 :00 once now Medical for 1 Branch dose. lidocaine 5 2020- No [id number] 1{patch Apply 1 Univers % (700 5-08 05-09 } Patch to ity of mg/patch) 00:00: 04:59 area(s) [place] patch 00 :00 once now Medical for 1 Branch dose. lidocaine 5 2020- No [id number] 1{patch Apply 1 Univers % (700 5-08 05-08 } Patch to ity of mg/patch) 00:00: 00:00 area(s) [place] patch 00 :00 once now Medical for 1 Branch dose. lidocaine 5 2019- No [id number] 1{patch Apply 1 Univers % (700 5-08 05-08 } Patch to ity of mg/patch) 00:00: 00:00 area(s) [place] patch 00 :00 once now Medical for 1 Branch dose. glipiZIDE Yes 5mg 5 mg, Univers (GLUCOTROL) 4-23 Oral, ity of tablet 5 mg 14:00: DAILY, [place] 00 First dose Medical on [facility] Branch 03/08/20 at 0900, Until Discontinu ed, Routine spironolact 2020- No [id number] 12.5mg Take 0.5 Univers one 25 mg 4-23 05-24 tablets by ity of tablet 00:00: 04:59 mouth [place] 00 :00 daily for Medical 30 days. Branch spironolact 2019- No [id number] 12.5mg Take 0.5 Univers one 25 mg 4-23 05-24 tablets by ity of tablet 00:00: 04:59 mouth [place] 00 :00 daily for Medical 30 days. Branch spironolact 2019- No [id number] 12.5mg Take 0.5 Univers one 25 mg 4-23 05-24 tablets by ity of tablet 00:00: 04:59 mouth [place] 00 :00 daily for Medical 30 days. Branch spironolact 2020- No [id number] 12.5mg Take 0.5 Univers one 25 mg 4-23 05-07 tablets by ity of tablet 00:00: 00:00 mouth [place] 00 :00 daily for Medical 30 days. Branch spironolact 2020- No [id number] 12.5mg Take 0.5 Univers one 25 mg [...] N ORAL - mouth. ity of 23:46: [place] 10 Medical Branch thiamine 2020-0 Yes 100mg [...] Discontinu ed, Routine, Insomnia Magnesium 2019-0 Yes [id number] 400mg Take 400 Univers Oxide 420 4-22 mg by ity of mg Tab 00:00: mouth [place] 00 daily. Medical Branch Insulin 2019-0 Yes [id number] 10U inject 10 Univers Glargine 4-22 Units ity of 100 unit/mL 00:00: under the [place] (3 mL) 00 skin at Medical injection bedtime. Branch temazepam 2019-0 Yes [id number] 15mg Take 1 Un mel 15 mg 4-22 capsule by ity of capsule 00:00: mouth at [place] 00 bedtime as Medical needed for Branch Insomnia. furosemide 2020-0 Yes [id number] 40mg Take 1 Univers 40 mg 4-22 tablet by ity of tablet 00:00: mouth [place] 00 every Medical morning Branch and evening. Magnesium 2020-0 Yes [id number] 400mg Take 400 Univers Oxide 420 4-22 mg by ity of mg Tab 00:00: mouth [place] 00 daily. Medical Branch potassium 2020-0 Yes [id number] 20meq Take 20 Univers chloride 20 4-22 mEq by ity of mEq packet 00:00: mouth [place] 00 daily. Medical Take with Branch lasix in the morning isosorbide 2020-0 Yes [id number] 15mg Take 0.5 Univers mononitrate 4-22 tablets by it y of 30 mg 24 hr 00:00: mouth [place] tablet 00 daily. Medical Hold if Branch systolic blood pressure less than 120 Insulin 2020-0 Yes [id number] 10U inject 10 Univers Glargine 4-22 Units ity of 100 unit/mL 00:00: under the [place] (3 mL) 00 skin at Medical injection bedtime. Branch temazepam 2020-0 Yes [id number] 15mg Take 1 Un mel 15 mg 4-22 capsule by ity of capsule 00:00: mouth at [place] 00 bedtime as Medical needed for Branch Insomnia. furosemide 2020-0 Yes [id number] 40mg Take 1 Univers 40 mg 4-22 tablet by ity of tablet 00:00: mouth [place] 00 every Medical morning Branch and evening. Magnesium 2020-0 Yes [id number] 400mg Take 400 Univers Oxide 420 4-22 mg by ity of mg Tab 00:00: mouth [place] 00 daily. Medical Branch potassium 2020-0 Yes [id number] 20meq Take 20 Univers chloride 20 4-22 mEq by ity of mEq packet 00:00: mouth [place] 00 daily. Medical Take with Branch lasix in the morning isosorbide 2020-0 Yes [id number] 15mg Take 0.5 Univers mononitrate 4-22 tablets by it y of 30 mg 24 hr 00:00: mouth [place] tablet 00 daily. Medical Hold if Branch systolic blood pressure less than 120 Insulin 2020-0 Yes [id number] 10U inject 10 Univers Glargine 4-22 Units ity of 100 unit/mL 00:00: under the [place] (3 mL) 00 skin at Medical injection bedtime. Branch temazepam 2020-0 Yes [id number] 15mg Take 1 Un mel 15 mg 4-22 capsule by ity of capsule 00:00: mouth at [place] 00 bedtime as Medical needed for Branch Insomnia. furosemide 2020-0 Yes [id number] 40mg Take 1 Univers 40 mg 4-22 tablet by ity of tablet 00:00: mouth [place] 00 every Medical morning Branch and evening. Magnesium 2020-0 Yes [id number] 400mg Take 400 Univers Oxide 420 4-22 mg by ity of mg Tab 00:00: mouth [place] 00 daily. Medical Branch potassium 2020-0 Yes [id number] 20meq Take 20 Univers chloride 20 4-22 mEq by ity of mEq packet 00:00: mouth [place] 00 daily. Medical Take with Branch lasix in the morning isosorbide 2020-0 Yes [id number] 15mg Take 0.5 [facility] mononitrate 4-22 tablets by it y of 30 mg 24 hr 00:00: mouth [place] tablet 00 daily. Medical Hold if Branch systolic blood pressure less than 120 Insulin 2020-0 Yes [id number] 10U inject 10 [facility] Glargine 4-22 Units ity of 100 unit/mL 00:00: under the [place] (3 mL) 00 skin at Medical injection bedtime. Branch vitamin 2019-0 2020- No [id number] 1000ug Take 1 [facility] B-12 1,000 4-22 07-22 tablet by ity of mcg tablet 00:00: 04:59 mouth [place] 00 :00 daily for Medical 90 days. Branch vitamin 2019-0 2020- No [id number] 1000ug Take 1 [facility] B-12 1,000 4-22 07-22 tablet by ity of mcg tablet 00:00: 04:59 mouth [place] 00 :00 daily for Medical 90 days. Branch vitamin 2020-0 2020- No [id number] 1000ug Take 1 [facility] B-12 1,000 4-22 07-22 tablet by ity of mcg tablet 00:00: 04:59 mouth [place] 00 :00 daily for Medical 90 days. Branch vitamin 2019-0 2020- No [id number] 1000ug Take 1 [facility] B-12 1,000 4-22 07-22 tablet by ity of mcg tablet 00:00: 04:59 mouth [place] 00 :00 daily for Medical 90 days. Branch glipiZIDE 5 2020- No [id number] 2.5mg Take 0.5 [facility] mg tablet 03-07-23 tablets by ity of 00:00: 04:59 mouth 2 [place] 00 :00 (two) Medical times Branch daily before breakfast and dinner for 30 days. metoprolol 2019- 2020- No [id number] 25mg Take 1 [facility] succinate - 05-23 tablet by ity of XL 25 mg 24 00:00: 04:59 mouth 2 [place] hr tablet 00 :00 (two) Medical times Branch daily for 30 days. OLANZapine 2019- 2020- No [id number] 2.5mg Take 1 [facility] 2.5 mg -06 04-23 tablet by ity of tablet 00:00: 04:59 mouth at [place] 00 :00 bedtime Medical for 30 Branch days. ranolazine 2019- 2020- No [id number] 1000mg Take 2 [facility] 500 mg 12 -06 04-23 tablets by ity of hr tablet 00:00: 04:59 mouth [place] 00 :00 every 12 Medical (twelve) Branch hours for 30 days. aspirin 81 2019- 2020- No [id number] 81mg Take 1 [facility] mg chewable -06 04-23 tablet by it y of tablet 00:00: 04:59 mouth [place] 00 :00 daily with Medical breakfast Branch for 30 days. atorvastati 2019- 2020- No [id number] 40mg Take 1 [facility] n 40 mg -06 04-23 tablet by ity of tablet 00:00: 04:59 mouth at [place] 00 :00 bedtime Medical for 30 Branch days. glipiZIDE 5 2020- No [id number] 2.5mg Take 0.5 [facility] mg tablet 03-07-23 tablets by ity of 00:00: 04:59 mouth 2 [place] 00 :00 (two) Medical times Branch daily before breakfast and dinner for 30 days. metoprolol 2019- 2020- No [id number] 25mg Take 1 [facility] succinate 4- 05-23 tablet by ity of XL 25 mg 24 00:00: 04:59 mouth 2 [place] hr tablet 00 :00 (two) Medical times Branch daily for 30 days. OLANZapine 2019- 2020- No [id number] 2.5mg Take 1 [facility] 2.5 mg 4-22 05-23 tablet by ity of tablet 00:00: 04:59 mouth at [place] 00 :00 bedtime Medical for 30 Branch days. ranolazine 2020-0 2020- No [id number] 1000mg Take 2 [facility] 500 mg 12 4-22 05-23 tablets by ity of hr tablet 00:00: 04:59 mouth [place] 00 :00 every 12 Medical (twelve) Branch hours for 30 days. aspirin 81 2019-0 2020- No [id number] 81mg Take 1 [facility] mg chewable 4-22 05-23 tablet by it y of tablet 00:00: 04:59 mouth [place] 00 :00 daily with Medical breakfast Branch for 30 days. atorvastati 2019-0 2020- No [id number] 40mg Take 1 [facility] n 40 mg 4-22 05-23 tablet by ity of tablet 00:00: 04:59 mouth at [place] 00 :00 bedtime Medical for 30 Branch days. glipiZIDE 5 2019-0 2020- No [id number] 2.5mg Take 0.5 [facility] mg tablet 4- 05-23 tablets by ity of 00:00: 04:59 mouth 2 [place] 00 :00 (two) Medical times Branch daily before breakfast and dinner for 30 days. metoprolol 2019-0 2020- No [id number] 25mg Take 1 [facility] succinate 4-22 05-23 tablet by ity of XL 25 mg 24 00:00: 04:59 mouth 2 [place] hr tablet 00 :00 (two) Medical times Branch daily for 30 days. OLANZapine 2020-0 2020- No [id number] 2.5mg Take 1 [facility] 2.5 mg 4-22 05-23 tablet by ity of tablet 00:00: 04:59 mouth at [place] 00 :00 bedtime Medical for 30 Branch days. ranolazine 2020-0 2020- No [id number] 1000mg Take 2 [facility] 500 mg 12 4-22 05-23 tablets by ity of hr tablet 00:00: 04:59 mouth [place] 00 :00 every 12 Medical (twelve) Branch hours for 30 days. aspirin 81 2020-0 2020- No [id number] 81mg Take 1 [facility] mg chewable 4-22 05-23 tablet by it y of tablet 00:00: 04:59 mouth [place] 00 :00 daily with Medical breakfast Branch for 30 days. atorvastati 2019- No [id number] 40mg Take 1 [facility] n 40 mg 03-07-23 tablet by ity of tablet 00:00: 04:59 mouth at [place] 00 :00 bedtime Medical for 30 Branch days. glipiZIDE 5 2019- No [id number] 2.5mg Take 0.5 [facility] mg tablet 03-07-23 tablets by ity of 00:00: 04:59 mouth 2 [place] 00 :00 (two) Medical times Branch daily before breakfast and dinner for 30 days. metoprolol 2019- No [id number] 25mg Take 1 [facility] succinate 03-07-23 tablet by ity of XL 25 mg 24 00:00: 04:59 mouth 2 [place] hr tablet 00 :00 (two) Medical times Branch daily for 30 days. ranolazine 2019- No [id number] 1000mg Take 2 [facility] 500 mg 12 03-07-23 tablets by ity of hr tablet 00:00: 04:59 mouth [place] 00 :00 every 12 Medical (twelve) Branch hours for 30 days. atorvastati 2019- No [id number] 40mg Take 1 [facility] n 40 mg 03-07-23 tablet by ity of tablet 00:00: 04:59 mouth at [place] 00 :00 bedtime Medical for 30 Branch days. furosemide 2019- No [id number] 40mg Take 1 [facility] 40 mg -06 04-08 tablet by ity of tablet 00:00: 00:00 mouth [place] 00 :00 every Medical morning Branch and evening. aspirin 81 2019- No [id number] 81mg Take 1 [facility] mg chewable - 05-08 tablet by it y of tablet 00:00: 00:00 mouth [place] 00 :00 daily with Medical breakfast Branch for 30 days. isosorbide 2020- No [id number] 15mg Take 0.5 [facility] mononitrate -06 04-08 tablets by i ty of 30 mg 24 hr 00:00: 00:00 mouth [place] tablet 00 :00 daily. Medical Hold if Branch systolic blood pressure less than 120 Insulin 2019- No [id number] 10U inject 10 [facility] Glargine - 05-08 Units ity of 100 unit/mL 00:00: 00:00 under the [place] (3 mL) 00 :00 skin at Medical injection bedtime. Branch glipiZIDE 5 2020- No [id number] 2.5mg Take 0.5 [facility] mg tablet 03-07 05-08 tablets by ity of 00:00: 00:00 mouth 2 [place] 00 :00 (two) Medical times Branch daily before breakfast and dinner for 30 days. metoprolol 2019- 2020- No [id number] 25mg Take 1 [facility] succinate - 05-08 tablet by ity of XL 25 mg 24 00:00: 00:00 mouth 2 [place] hr tablet 00 :00 (two) Medical times Branch daily for 30 days. ranolazine 2019- 2020- No [id number] 1000mg Take 2 [facility] 500 mg 12 - 05-08 tablets by ity of hr tablet 00:00: 00:00 mouth [place] 00 :00 every 12 Medical (twelve) Branch hours for 30 days. furosemide 2019- 2020- No [id number] 40mg Take 1 [facility] 40 mg -06 04-08 tablet by ity of tablet 00:00: 00:00 mouth [place] 00 :00 every Medical morning Branch and evening. aspirin 81 2019-2019- No [id number] 81mg Take 1 [facility] mg chewable - 05-08 tablet by it y of tablet 00:00: 00:00 mouth [place] 00 :00 daily with Medical breakfast Branch for 30 days. atorvastati 2019- 2020- No [id number] 40mg Take 1 [facility] n 40 mg - 05-08 tablet by ity of tablet 00:00: 00:00 mouth at [place] 00 :00 bedtime Medical for 30 Branch days. Magnesium 2019- 2020- No [id number] 400mg Take 400 [facility] Oxide 420 - 05-08 mg by ity of mg Tab 00:00: 00:00 mouth [place] 00 :00 daily. Medical Branch vitamin 2019- 2020- No [id number] 1000ug Take 1 [facility] B-12 1,000 - 05-08 tablet by ity of mcg tablet 00:00: 00:00 mouth [place] 00 :00 daily for Medical 90 days. Branch isosorbide 2019- 2020- No [id number] 15mg Take 0.5 [facility] mononitrate -22 05-08 tablets by i ty of 30 mg 24 hr 00:00: 00:00 mouth [place] tablet 00 :00 daily. Medical Hold if Branch systolic blood pressure less than 120 OLANZapine 2019- 2020- No [id number] 2.5mg Take 1 [facility] 2.5 mg - 05-07 tablet by ity of tablet 00:00: 00:00 mouth at [place] 00 :00 bedtime Medical for 30 Branch days. temazepam 2019- 2020- No [id number] 15mg Take 1 U nivers 15 mg 03-07 05-07 capsule by ity of capsule 00:00: 00:00 mouth at [place] 00 :00 bedtime as Medical needed for Branch Insomnia. potassium 2019- 2020- No [id number] 20meq Take 20 [facility] chloride 20 -22 05-07 mEq by ity o f mEq packet 00:00: 00:00 mouth [place] 00 :00 daily. Medical Take with Branch lasix in the morning OLANZapine 2019-2019- No [id number] 2.5mg Take 1 [facility] 2.5 mg 03-07-07 tablet by ity of tablet 00:00: 00:00 mouth at [place] 00 :00 bedtime Medical for 30 Branch days. temazepam 2019-2019- No [id number] 15mg Take 1 U nivers 15 mg - 05-07 capsule by ity of capsule 00:00: 00:00 mouth at [place] 00 :00 bedtime as Medical needed for Branch Insomnia. potassium 2019- 2020- No [id number] 20meq Take 20 [facility] chloride 20 -22 05-07 mEq by ity o f mEq packet 00:00: 00:00 mouth [place] 00 :00 daily. Medical Take with Branch lasix in the morning isosorbide 2019-2019- No 60mg 60 mg, Univ ers mononitrate - 04-21 Oral, ity of (IMDUR) 24 14:00: 13:43 DAILY, [place] hr tablet 00 :56 First dose Medi [place] 60 mg on Thu [place] 03/06/20 at 0900, Until Discontinu ed, Routine OLANZapine 2019- Yes 2.5mg 2.5 mg, Uni vers (ZyPREXA) 4-21 Oral, QHS, ity of tablet 2.5 02:00: First dose [place] mg 00 on [facility] [place] 03/05/20 at Branch 2100, Until Discontinu ed, Routine insulin 2020-0 Yes 10U 10 Units, Unive rs glargine 4-21 Subcutaneo ity o f (LANTUS 02:00: us, QHS, [place] U-100) 00 First dose Medical injection on [facility] Branch 10 Units 03/05/20 at 2100, Until Discontinu ed, Routine donepezil 2020-0 Yes 5mg 5 mg, Univers (ARICEPT) 4-21 Oral, QHS, ity of tablet 5 mg 02:00: First dose [place] 00 on [facility] [place] 03/05/20 at Branch 2100, Until Discontinu ed, Routine atorvastati 2020-0 Yes 40mg 40 mg, Univ ers n (LIPITOR) 4-21 Oral, QHS, it y of tablet 40 02:00: First dose [place] mg 00 on [facility] [place] 03/05/20 at Branch 2100, Until Discontinu ed, Routine isosorbide 2020-0 2020- No 30mg 30 mg, Univ ers mononitrate 03-05-20 Oral, ity of (IMDUR) 24 15:30: 15:21 ONCE, 1 [place] hr tablet 00 :00 dose, [facility] Medic al 30 mg 03/05/20 at Branch 1030, Routine spironolact 2020-0 Yes 12.5mg 12.5 mg, Univers one 4-20 Oral, ity of (ALDACTONE) 14:00: DAILY, [place] tablet 12.5 00 First dose Me dical mg on [facility] 03/05/20 at 0900, Until Discontinu ed, Routine memantine 2020-0 Yes 10mg 10 mg, Univer s (NAMENDA) 4-20 Oral, ity of tablet 10 14:00: DAILY, [place] mg 00 First dose Medical on [facility] 03/05/20 at 0900, Until Discontinu ed, Routine
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 lisinopril 2020-0 2020- No 5mg 5 mg, Unive rs (PRINIVIL,Z 03-05-21 Oral, ity of ESTRIL) 14:00: 13:44 DAILY, [place] tablet 5 mg 00 :01 First dose Me dical on [facility] 03/05/20 at 0900, Until Discontinu ed, [...] mg 00 First dose Medical on [facility] 03/05/20 at 0800, Until Discontinu ed, Routine metoprolol 2020-0 Yes 25mg 25 mg, Unive rs succinate 4-20 Oral, BID, ity of XL (TOPROL 13:00: First dose [place] XL) tablet 00 on [facility] Medical 25 mg 03/05/20 at Branch 0800, Until Discontinu ed, Routine magnesium 2020-0 Yes 400mg 400 mg, Univ ers oxide 4-20 Oral, BID, ity of (MAG-OX 13:00: First [place] 400[place] tablet 00 on [facility] Medica l 400 mg 03/05/20 at Branch 0800, Until Discontinu ed, Routine aspirin 2020-0 Yes 81mg 81 mg, Univers chewable -20 Oral, QAM ity of tablet 81 13:00: WITH [place] mg 00 BREAKFAST, Medical First dose Branch on [facility] 03/05/20 at 0800, Until Discontinu ed, Routine Sliding 2020-0 Yes Subcutaneo Univ ers Scale 4-20 us, AC+HS, ity of Insulin-Reg 12:30: First dose [place] ular + Fsbg 00 on [facility] Medica l Testing 03/05/20 at Branch 0730, Until Discontinu ed, Routine glipiZIDE 2020-0 2020- No 5mg 5 mg, Univer s (GLUCOTROL) -20 04-22 Oral, ity of tablet 5 mg 12:30: 19:41 BIDAC, [place] 00 :44 First dose Medical on [facility] 03/05/20 at 0730, Until Discontinu ed, [...] injection 42 Starting Medica l 25 mL [facility] 03/04/20 at 2202, Until Discontinu ed, ADAMA, Blood Glucose < or = 70 mg/dL and patient is unable to swallow or has mental status changes. furosemide 2020-0 Yes 40mg 40 mg, Unive rs (LASIX) 4-20 Oral, ity of tablet 40 03:00: QAM+PM, [place] mg 00 First dose Medical on [facility] 03/04/20 at 2200, Until Discontinu ed, Routine cyanocobala 2020-0 Yes 1000ug 1,000 mcg, Univers min 4-20 Subcutaneo ity of (VITAMIN 03:00: us, Q24H, [place] B12) 00 First dose Medical injection on [facility] 1,000 mcg 03/04/20 at 2200, Until Discontinu ed, Routine heparin 2020-0 Yes 5000U 5,000 Univers (porcine) 4-20 Units, ity of injection 03:00: Subcutaneo [place] 5,000 Units 00 us, Q8H, Medi birdie First dose Branch on [place] 03/04/20 at 2200, Until Discontinu ed, Routine ondansetron 2020-0 Yes 4mg 4 mg, Slow Univers (ZOFRAN 4-20 IV Push, ity of (PF)) 02:34: Q6HPRN, [place] injection 4 40 Starting Medi birdie mg [facility] 03/04/20 at 2134, Until Discontinu ed, Routine, Nausea and Vomiting (N/V) traMADol 2020-0 2020- No 50mg 50 mg, Univer s (ULTRAM) 4-20 04-22 Oral, ity of tablet 50 02:34: 02:33 Q8HPRN, [place] mg 23 :23 Starting Medical [facility] 03/04/20 at 2134, Until 03/06/20 at 2133, Routine, Pain (scale 4-6) acetaminoph 2020-0 Yes 650mg 650 mg, Un mel en 4-20 Oral, ity of (TYLENOL) 02:34: Q6HPRN, [place] tablet 650 20 Starting Medic al mg [place] Branch 03/04/20 at 2134, Until Discontinu ed, Routine, Pain (scale 1-3) lisinopril 2020-0 Yes [id number] 5mg Take 1 [facility] 5 mg tablet 4-18 tablet by ity of 00:00: mouth [place] 00 daily. Medical Branch isosorbide 2020-0 Yes [id number] 30mg Take 1 [facility] mononitrate 4-18 tablet by ity of 30 mg 24 hr 00:00: mouth [place] tablet 00 daily. Medical Branch lisinopril 2020-0 Yes [id number] 5mg Take 1 [facility] 5 mg tablet 4-18 tablet by ity of 00:00: mouth [place] 00 daily. Medical Branch isosorbide 2020-0 Yes [id number] 30mg Take 1 [facility] mononitrate 4-18 tablet by ity of 30 mg 24 hr 00:00: mouth [place] tablet 00 daily. Medical Branch lisinopril 2019-0 2020- No [id number] 5mg Take 1 [facility] 5 mg tablet 4-18 04-22 tablet by it y of 00:00: 00:00 mouth [place] 00 :00 daily. Medical Branch isosorbide 2019-0 2020- No [id number] 30mg Take 1 [facility] mononitrate 4-18 04-22 [...] N ORAL 4-17 mouth. ity of 17:34: [place] [address] Medical Branch thiamine 2020-0 Yes 100mg Take 100 Univ ers (VITAMIN 4-17 mg by ity of B-1) 100 mg 17:34: mouth [place] tablet 27 daily. Medical Branch aspirin 81 2020-0 Yes 81mg Take 81 mg U nivers mg chewable 4-17 by mouth ity of tablet 17:34: daily. [place] [address] Medical Branch atorvastati 2020-0 Yes 40mg Take 40 mg Univers n 40 mg 4-17 by mouth ity of tablet 17:34: at [place] [address] bedtime. Medical Branch NaCl 0.9% 2020-0 Yes [...] 4-17 mouth. ity of complex and 17:34: [place] C ( 27 Medical COMPLEX-VIT Branch RAZA C-FOLIC ACID ORAL) Cholecalcif 2020-0 Yes Take by Un mel ann, 4-17 mouth. ity of Vitamin D3, 17:34: [place] 2,000 unit 27 Medical capsule Branch metoprolol 2020-0 Yes 12.5mg Take 12.5 Univers tartrate 4-17 mg by ity of 12.5 mg 17:34: mouth 2 [place] 27 (two) Medical times Branch daily. MULTIVITAMI 2020-0 Yes Take by Un mel N ORAL 4-17 mouth. ity of 17:34: [place] [address] Medical Branch thiamine 2020-0 Yes 100mg Take 100 Univ ers (VITAMIN 4-17 mg by ity of B-1) 100 mg 17:34: mouth [place] tablet 27 daily. Medical Branch aspirin 81 2020-0 Yes 81mg Take 81 mg U nivers mg chewable 4-17 by mouth ity of tablet 17:34: daily. [place] [address] Medical Branch atorvastati 2020-0 Yes 40mg Take [...] Until Discontinu ed, Routine furosemide 2020-0 Yes [id number] 40mg Take 1 [facility] 40 mg 4-17 tablet by ity of tablet 00:00: mouth [place] 00 every Medical morning Branch and evening. potassium 2020-0 Yes [id number] 20meq Take 20 [facility] chloride 20 4-17 mEq by ity of mEq packet 00:00: mouth [place] 00 daily. Medical Branch vitamin 2020-0 Yes [id number] 1000ug Take 1 U nivers B-12 1,000 4-17 tablet by ity of mcg tablet 00:00: mouth [place] 00 daily. Medical Branch furosemide 2020-0 Yes [id number] 40mg Take 1 [facility] 40 mg 4-17 tablet by ity of tablet 00:00: mouth [place] 00 every Medical morning Branch and evening. potassium 2020-0 Yes [id number] 20meq Take 20 [facility] chloride 20 4-17 mEq by ity of mEq packet 00:00: mouth [place] 00 daily. Medical Branch vitamin 2020-0 Yes [id number] 1000ug Take 1 U nivers B-12 1,000 4-17 tablet by ity of mcg tablet 00:00: mouth [place] 00 daily. Medical Branch furosemide 2020-0 2020- No [id number] 40mg Take 1 [facility] 40 mg 4-17 04-22 tablet by ity of tablet 00:00: 00:00 mouth [place] 00 :00 every Medical morning Branch and evening. potassium 2020-0 2020- No [id number] 20meq Take 20 [facility] chloride 20 4-17 04-22 mEq by ity o f mEq packet 00:00: 00:00 mouth [place] 00 :00 daily. Medical Branch vitamin 2020-0 2020- No [id number] 1000ug Take 1 [facility] B-12 1,000 -17 04-22 tablet by ity of mcg tablet 00:00: 00:00 mouth [place] 00 :00 daily. Medical Branch cyanocobala 2020-0 Yes 1000ug 1,000 mcg, [facility] min 4-16 Subcutaneo ity of (VITAMIN 20:45: us, Q24H, [place] B12) 00 First dose Medical injection on [facility] Branch 1,000 mcg 03/01/20 at 1545, Until Discontinu ed, Routine isosorbide 2020-0 Yes 30mg 30 mg, Unive rs mononitrate 4-16 Oral, ity of (IMDUR) 24 14:00: DAILY, [place] hr tablet 00 First dose Medi birdie 30 mg on [facility] Branch 03/01/20 at 0900, Until Discontinu ed, Routine memantine 2019-0 Yes 10mg 10 mg, Univer s (NAMENDA) 4-16 Oral, ity of tablet 10 14:00: DAILY, [place] mg 00 First dose Medical on [facility] 03/01/20 at 0900, Until Discontinu ed, Routine
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 lisinopril 2020-0 Yes 5mg 5 mg, Univer s (PRINIVIL,Z 4-16 Oral, ity of ESTRIL) 14:00: DAILY, [place] tablet 5 mg 00 First dose Me dical on [facility] Branch 03/01/20 at 0900, Until Discontinu [...] [place] gram/50 mL 00 :00 dose, Thu [facility] birdie (4 %) 2 g 02/29/20 at [facility] piggyback 2230 metoprolol 2020-0 2020- No 5mg 5 mg, Slow Univers (LOPRESSOR) 03-01 IV Push, ity of injection 5 03:30: 03:37 ONCE, 1 [place] mg 00 :00 dose, Thu [facility] 02/29/20 at Branch 2230, ADAMA glipiZIDE 2020-0 Yes 5mg 5 mg, Univers (GLUCOTROL) 03-01 Oral, ity of tablet 5 mg 02:45: BIDAC, [place] 00 First dose Medical on Thu [place] 02/29/20 at 2145, Until Discontinu ed, Routine insulin 2020-0 Yes 10U 10 Units, Unive rs glargine 03-01 Subcutaneo ity o f (LANTUS 02:45: us, QHS, [place] U-100) 00 First dose Medical injection on Thu [place] 10 Units 02/29/20 at 2145, Until Discontinu [...] mg 00 First dose Medical on Thu [place] 02/29/20 at 2130, Until Discontinu ed, Routine [...] 02-14 by mouth ity of 00:00: daily. [place] 00 Medical Branch donepezil 5 2019- No 5mg Take 5 mg [facility] mg tablet 02-1408 by mouth ity o f 00:00: 00:00 daily. [place] 00 :00 Medical Branch nitroglycer 2019- No [...] ity of Vitamin D3, 23:00: [place] 2,000 [facility] Medical capsule Branch metoprolol 2020-0 Yes 12.5mg Take 12.5 [facility] tartrate 3-03 mg by ity of 12.5 mg 23:00: mouth 2 [place] 52 (two) Medical times Branch daily. MULTIVITAMI 2020-0 Yes Take by Un mel N ORAL 3-03 mouth. ity of 23:00: [place] [address] Medical Branch thiamine 2020-0 Yes 100mg Take 100 Univ ers (VITAMIN 3-03 mg by ity of B-1) 100 mg 23:00: mouth [place] tablet 52 daily. Medical Branch aspirin 81 2020-0 Yes 81mg Take 81 mg U nivers mg chewable 3-03 by mouth ity of tablet 23:00: daily. [place] [address] Medical Branch atorvastati 2020-0 Yes 40mg Take 40 mg Univers n 40 mg 3-03 by mouth ity of tablet 23:00: at [place] [address] bedtime. Medical Branch NaCl 0.9% 2020-0 Yes [...] by ity of mEq packet 23:00: mouth [place] 52 daily. Medical Branch Cholecalcif 2020-0 Yes Take by Un mel ann, 3-03 mouth. ity of Vitamin D3, 23:00: [place] 2,000 unit 52 Medical capsule Branch metoprolol 2020-0 Yes 12.5mg Take 12.5 Univers tartrate 3-03 mg by ity of 12.5 mg 23:00: mouth 2 [place] [address] (two) Medical times Branch daily. MULTIVITAMI 2020-0 Yes Take by Un mel N ORAL 3-03 mouth. ity of 23:00: [place] [address] Medical Branch thiamine 2020-0 Yes 100mg Take 100 Univ ers (VITAMIN 3-03 mg by ity of B-1) 100 mg 23:00: mouth [place] tablet 52 daily. Medical Branch aspirin 81 2020-0 Yes 81mg Take 81 mg U nivers mg chewable 3-03 by mouth ity of tablet 23:00: daily. [place] [address] Medical Branch atorvastati 2020-0 Yes 40mg Take 40 mg Univers n 40 mg 3-03 by mouth ity of tablet 23:00: at [place] [address] bedtime. Medical Branch NaCl 0.9% 2020-0 Yes [...] by ity of mEq packet 23:00: mouth [place] 52 daily. Medical Branch Cholecalcif 2020-0 Yes Take by Un mel ann, 3-03 mouth. ity of Vitamin D3, 23:00: [place] 2,000 unit 52 Medical capsule Branch metoprolol 2020-0 Yes 12.5mg Take 12.5 [facility] tartrate 3-03 mg by ity of 12.5 mg 23:00: mouth 2 [place] [address] (two) Medical times Branch daily. MULTIVITAMI 2020-0 [...] by mouth ity of tablet 23:00: daily. [place] [address] Medical Branch atorvastati 2020-0 Yes 40mg Take 40 mg Univers n 40 mg 3-03 by mouth ity of tablet 23:00: at [place] [address] bedtime. Medical Branch NaCl 0.9% 2020-0 Yes [...] by ity of mEq packet 23:00: mouth [place] 52 daily. Medical Branch Cholecalcif 2020-0 Yes [...] N ORAL 3-03 mouth. ity of 23:00: [place] 52 Medical Branch thiamine 2020-0 Yes 100mg Take 100 Univ ers (VITAMIN 3-03 mg by ity of B-1) 100 mg 23:00: mouth [place] tablet 52 daily. Medical Branch aspirin 81 2020-0 Yes 81mg Take 81 mg U nivers mg chewable 3-03 by mouth ity of tablet 23:00: daily. [address] Branch atorvastati 2019-0 Yes 40mg Take 40 mg Univers n 40 mg 3-03 by mouth ity of tablet 23:00: at [place] [address] bedtime. Medical Branch NaCl 0.9% 2019-0 Yes [...] First dose [place] mg 00 on [facility] [place] 01/16/20 at Branch 2100, Until Discontinu ed, Routine ranolazine 2019-0 2020- No [id number] 500mg Take 1 [facility] 500 mg 12 01-16- tablet by ity of hr tablet 00:00: 04:59 mouth [place] 00 :00 every 12 Medical (twelve) Branch hours for 30 days. ranolazine 2020-0 2020- No [id number] 500mg Take 1 [facility] 500 mg 12 01-16 04- tablet by ity of hr tablet 00:00: 04:59 mouth [place] 00 :00 every 12 Medical (twelve) Branch hours for 30 days. ranolazine 2020-0 2020- No [id number] 500mg Take 1 [facility] 500 mg 12 01-16 04-03 tablet by ity of hr tablet 00:00: 04:59 mouth [place] 00 :00 every 12 Medical (twelve) Branch hours for 30 days. ranolazine 2020-0 2020- No [id number] 500mg Take 1 [facility] 500 mg 01-16 04-03 tablet by ity of hr tablet 00:00: 04:59 mouth [place] 00 :00 every 12 Medical (twelve) Branch hours for 30 days. ranolazine 2019-0 Yes 500mg 500 mg, Uni vers (RANEXA) 12 -02 Oral, ity of hr tablet 22:30: Q12H, [place] 500 mg 00 First dose Medical on [facility] 01/16/20 at 1630, Until Discontinu ed, Routine insulin 2019-0 Yes 30U 30 Units, Unive rs glargine 3-02 Subcutaneo ity o f (LANTUS 15:00: [place], DAILY, [place] U-100) 00 First dose Medical injection on [facility] Branch 30 Units 01/16/20 at 0900, Until Discontinu ed furosemide 2020-0 Yes 40mg 40 mg, Unive rs (LASIX) 01-15 Oral, ity of tablet 40 15:00: DAILY, [place] mg 00 First dose Medical on [facility] Branch 01/16/20 at 0900, Until Discontinu ed, Routine aspirin 2020-0 Yes 81mg 81 mg, Univers chewable 01-15 Oral, ity of tablet 81 15:00: DAILY, [place] mg 00 First dose Medical on [facility] Branch 01/16/20 at 0900, Until Discontinu ed, Routine metoprolol 2020-0 Yes 12.5mg 12.5 mg, U nivers tartrate 01-15 Oral, BID, ity o f (LOPRESSOR) 14:00: First dose [place] tablet 12.5 00 on [facility] Medica l mg 01/16/20 at Branch 0800, Until Discontinu ed, Routine Sliding 2020-0 Yes Subcutaneo Univ ers Scale 01-15 us, Q6H, ity of Insulin-Reg 12:00: First dose [place] ular + Fsbg 00 on [facility] Medica l Testing 01/16/20 at Branch [...] IV ity of (D50W) 10:52: Push, PRN, [place] injection 33 Starting Medica l 25 mL [facility] 01/16/20 Branch at 0452, Until Discontinu [...] IV Push, ity of (PF)) 07:55: Q6HPRN, [place] injection 4 01 Starting Medi birdie mg 01/16/20 Branch at 0155, Until Discontinu ed, Routine, Nausea and Vomiting (N/V) morpHINE 2019-0 2020- No 2mg 2 mg, Slow Un mel injection 2 01-15 03-03 IV Push, ity of mg 07:54: 07:53 Q6HPN, [place] 55 :55 Starting Medical [facility] 01/16/20 Branch at 0154, Until Tu01/17/20 at 0153, Routine, Pain (scale 7-10) traMADol 2019-0 2020- No 50mg 50 mg, Univer s (ULTRAM) 01-15 03-04 Oral, ity of tablet 50 07:54: 07:53 Q8HPRN, [facility] :47 Starting Medical [facility] 01/16/20 Branch at 0154, Until Thu01/18/20 at 0153, Routine, Pain (scale 4-6) acetaminoph 2019-0 Yes 650mg 650 mg, Un mel en 01-15 Oral, ity of (TYLENOL) 07:54: [facility], [place] tablet 650 44 Starting Medic al mg [facility] 01/16/20 Branch at 0154, Until Discontinu ed, Routine, Pain (scale 1-3) insulin 2020-0 2020- No 8U 8 Units, Unive rs regular 01-15 03- Slow IV ity of human 06:45: 05:40 Push, [place] (HUMULIN R) 00 :00 ONCE, 1 Medic [...] 01/15/20 at 2345, [place] furosemide 2018-11 Yes [id number] 40mg Take 1 Univers 40 mg 0-26 tablet by ity of tablet 00:00: mouth [place] 00 daily. Medical Branch furosemide 2018-11 Yes [id number] 40mg Take 1 Univers 40 mg 0-26 tablet by ity of tablet 00:00: mouth [place] 00 daily. Medical Branch furosemide 2018-11 Yes [id number] 40mg Take 1 Univers 40 mg 0-26 tablet by ity of tablet 00:00: mouth [place] 00 daily. Medical Branch furosemide 2018-11 Yes [id number] 40mg Take 1 Univers 40 mg 0-26 tablet by ity of tablet 00:00: mouth [place] 00 daily. Medical Branch furosemide 2018-11 2020- No [id number] 40mg Take 1 Univers 40 mg 0-26 04-17 tablet by ity of tablet 00:00: 00:00 mouth [place] 00 :00 daily. Medical Branch magnesium 2018-11 Yes [id number] 400mg Take 400 Univers oxide 420 0-23 mg by ity of mg Tab 00:00: mouth [place] 00 daily. Medical Branch magnesium 2018- Yes [id number] 400mg Take 400 Univers oxide 420 0-23 mg by ity of mg Tab 00:00: mouth [place] 00 daily. Medical Branch magnesium 2018- Yes [id number] 400mg Take 400 Univers oxide 420 0-23 mg by ity of mg Tab 00:00: mouth [place] 00 daily. Medical Branch magnesium 2018- Yes [id number] 400mg Take 400 Univers oxide 420 0-23 mg by ity of mg Tab 00:00: mouth [place] 00 daily. Medical Branch magnesium 2018- Yes [id number] 400mg Take 400 Univers oxide 420 0-23 mg by ity of mg Tab 00:00: mouth [place] 00 daily. Medical Branch magnesium 2018- Yes [id number] 400mg Take 400 Univers oxide 420 0-23 mg by ity of mg Tab 00:00: mouth [place] 00 daily. Medical Branch magnesium 2018- 2020- No [id number] 400mg Take 400 Univers oxide 420 0-23 04-22 mg by ity of mg Tab 00:00: 00:00 mouth [place] 00 :00 daily. Medical Branch Insulin 2018-0 Yes [id number] 30U inject 30 Univers Glargine 9-11 Units ity of 100 unit/mL 00:00: under the [place] (3 mL) 00 skin every Medical injection morning. Branch Insulin Yes [id number] 30U inject 30 Univers Glargine 9-11 Units ity of 100 unit/mL 00:00: under the [place] (3 mL) 00 skin every Medical injection morning. Branch Insulin Yes [id number] 30U inject 30 Univers Glargine 9-11 Units ity of 100 unit/mL 00:00: under the [place] (3 mL) 00 skin every Medical injection morning. Branch Insulin Yes [id number] 30U inject 30 Univers Glargine 9-11 Units ity of 100 unit/mL 00:00: under the [place] (3 mL) 00 skin every Medical injection morning. Branch Insulin Yes [id number] 30U inject 30 Univers Glargine 9-11 Units ity of 100 unit/mL 00:00: under the [place] (3 mL) 00 skin every Medical injection morning. Branch Insulin Yes [id number] 30U inject 30 Univers Glargine 9-11 Units ity of 100 unit/mL 00:00: under the [place] (3 mL) 00 skin every Medical injection morning. Branch Insulin Yes [id number] 30U inject 30 Univers Glargine 9-11 Units ity of 100 unit/mL 00:00: under the [place] (3 mL) 00 skin every Medical injection morning. Branch Insulin 2020- No [id number] 30U inject 30 Univers Glargine 9-11 04-22 [...] mg under ity of 15:26: the skin. [place] [address] Medical Branch Cholecalcif 0 Yes Take by Un mel ann, 5-10 mouth. ity of Vitamin D3, 15:26: [place] 2,000 unit 43 Medical capsule Branch metoprolol 0 Yes 12.5mg Take 12.5 Univers tartrate 5-10 mg by ity of 12.5 mg 15:26: mouth 2 [place] 43 (two) Medical times Branch daily. MULTIVITAMI 0 Yes Take by Un mel N ORAL 5-10 mouth. ity of 15:26: [place] [address] Medical Branch thiamine 0 Yes 100mg Take 100 Univ ers (VITAMIN 5-10 mg by ity of B-1) 100 mg 15:26: mouth [place] tablet 43 daily. Medical Branch aspirin 81 Yes 81mg Take 81 mg U nivers mg chewable 5-10 by mouth ity of tablet 15:26: daily. [place] [address] Medical Branch atorvastati 0 Yes 40mg Take 40 mg Univers n 40 mg 5-10 by mouth ity of tablet 15:26: at [place] 43 bedtime. Medical Branch furosemide 0 Yes 40mg Take 40 mg U nivers 40 mg 5-10 by mouth ity of tablet 15:26: daily. [place] [address] Medical Branch NaCl 0.9% 0 Yes 10mL [...] mg under ity of 15:26: the skin. [place] [address] Medical Branch Cholecalcif 0 Yes Take by Un mel ann, 5-10 mouth. ity of Vitamin D3, 15:26: [place] 2,000 unit 43 Medical capsule Branch metoprolol 0 Yes 12.5mg Take 12.5 Univers tartrate 5-10 mg by ity of 12.5 mg 15:26: mouth 2 [place] [address] (two) Medical times Branch daily. MULTIVITAMI 0 Yes Take by Un mel N ORAL 5-10 mouth. ity of 15:26: [place] [address] Medical Branch thiamine 2018-0 Yes 100mg Take 100 Univ ers (VITAMIN 5-10 mg by ity of B-1) 100 mg 15:26: mouth [place] tablet 43 daily. Medical Branch aspirin 81 0 Yes 81mg Take 81 mg U nivers mg chewable 5-10 by mouth ity of tablet 15:26: daily. [place] [address] Medical Branch atorvastati 0 Yes 40mg Take 40 mg Univers n 40 mg 5-10 by mouth ity of tablet 15:26: at [place] [address] bedtime. Medical Branch furosemide 0 Yes 40mg Take 40 mg U nivers 40 mg 5-10 by mouth ity of tablet 15:26: daily. [place] [address] Medical Branch NaCl 0.9% Yes 10mL Inject 10 Uni vers (NS) Soln 5-10 mL ity of 10 mL with 15:26: intravenou [place] sodium 43 sly once Medical chloride now. Branch 2.5 mEq/mL SolP 17.125 mEq insulin Yes [id number] 4U inject 4 U nivers lispro, 5-10 Units ity of human, 100 00:00: under the [place] unit/mL 00 skin 3 Medical injection (three) Branch times daily before meals. insulin 2018-0 Yes [id number] 4U inject 4 U nivers lispro, 5-10 Units ity of human, 100 00:00: under the [place] unit/mL 00 skin 3 Medical injection (three) Branch times daily before meals. insulin 2018-0 Yes [id number] 4U inject 4 U nivers lispro, 5-10 Units ity of human, 100 00:00: under the [place] unit/mL 00 skin 3 Medical injection (three) Branch times daily before meals. insulin 2018-0 Yes [id number] 4U inject 4 U nivers lispro, 5-10 Units ity of human, 100 00:00: under the [place] unit/mL 00 skin 3 Medical injection (three) Branch times daily before meals. insulin 2018-0 Yes [id number] 4U inject 4 U nivers lispro, 5-10 Units ity of human, 100 00:00: under the [place] unit/mL 00 skin 3 Medical injection (three) Branch times daily before meals. insulin 2018-0 Yes [id number] 4U inject 4 U nivers lispro, 5-10 Units ity of human, 100 00:00: under the [place] unit/mL 00 skin 3 Medical injection (three) Branch times daily before meals. Insulin 2018-0 Yes [id number] 18U inject Uni vers Glargine 5-10 18-24 ity of 100 unit/mL 00:00: Units [place] (3 mL) 00 under the Medical injection skin every Bran ch morning. insulin 2018-0 Yes [id number] 4U inject 4 U nivers lispro, 5-10 Units ity of human, 100 00:00: under the [place] unit/mL 00 skin 3 Medical injection (three) Branch times daily before meals. insulin 2018-0 Yes [id number] 4U inject 4 U nivers lispro, 5-10 Units ity of human, 100 00:00: under the [place] unit/mL 00 skin 3 Medical injection (three) Branch times daily before meals. insulin 2018-0 Yes [id number] 4U inject 4 U nivers lispro, 5-10 Units ity of human, 100 00:00: under the [place] unit/mL 00 skin 3 Medical injection (three) Branch times daily before meals. insulin 2018-0 Yes [id number] 4U inject 4 U nivers lispro, 5-10 Units ity of human, 100 00:00: under the [place] unit/mL 00 skin 3 Medical injection (three) Branch times daily before meals. insulin 2018-0 Yes [id number] 4U inject 4 U nivers lispro, 5-10 Units ity of human, 100 00:00: under the [place] unit/mL 00 skin 3 Medical injection (three) Branch times daily before meals. insulin 2020- No [id number] 4U inject 4 Univers lispro, 5-10 05-07 Units ity of human, 100 00:00: 00:00 under the [place] unit/mL 00 :00 skin 3 Medical injection (three) Branch times daily before meals. insulin 2020- No [id number] 4U inject 4 Univers lispro, 5-10 05-07 Units ity of human, 100 00:00: 00:00 under the [place] unit/mL 00 :00 skin 3 Medical injection (three) Branch times daily before meals. Insulin 2019- No [id number] 18U inject Un mel Glargine 5- 09-11 18-24 ity of 100 unit/mL 00:00: 00:00 Units [place] (3 mL) 00 :00 under the Medical injection skin every Bran ch morning. folic Yes Take by Univers acid/vit B 3-08 mouth. ity of complex and 16:39: [facility] ( 29 Medical COMPLEX-VIT Branch RAZA C-FOLIC ACID ORAL) potassium Yes 20meq Take 20 Univ ers chloride 20 3-08 mEq by ity of mEq packet 16:39: mouth [place] 29 daily. Medical Branch folic Yes Take by Univers acid/vit B 3-08 mouth. ity of complex and 16:39: [place] C ( 29 Medical COMPLEX-VIT Branch RAZA C-FOLIC ACID ORAL) potassium Yes 20meq Take 20 Univ ers chloride 20 3-08 mEq by ity of mEq packet 16:39: mouth [place] 29 daily. Medical Branch Potassium Potassium Yes [...] Yes Anneliese as [facility] ent Clinics Lasix Lasix Yes Anneliese [address] [facility]ics Isosorbide Isosorbide Yes Anneliese [address] [address] [facility] ent Clinics Lyrica Lyrica Yes [facility] [facility]ics Immunizations Ordered Filled Immunization Date Status Comments [facility] e Immunization Name Name SARS-COV-2 COVID-19 2021-09-16 Completed Unive rsity of MODERNA VACCINE 00:00:00 [facility] SARS-COV-2 COVID-19 2021-09-16 Completed Unive rsity of MODERNA VACCINE 00:00:00 [facility] SARS-COV-2 COVID-19 2021-09-16 Completed Unive rsity of MODERNA VACCINE 00:00:00 [facility] SARS-COV-2 COVID-19 2021-08-17 Completed Unive rsity of MODERNA VACCINE 00:00:00 [facility] Influenza High Dose 2021-08-17 Completed Unive rsity of 00:00:00 [facility] SARS-COV-2 COVID-19 2021-08-17 Completed Unive rsity of MODERNA VACCINE 00:00:00 [facility] Influenza High Dose 2021-08-17 Completed Unive rsity of 00:00:00 [place] [facility] SARS-COV-2 COVID-19 2021-08-17 Completed Unive rsity of MODERNA VACCINE 00:00:00 [facility] Influenza High Dose 2021-08-17 Completed Unive rsity of 00:00:00 [facility] Zoster(Zostavax)( 2020-09-14 Completed Unive rsity of ingles) 00:00:00 [facility] Zoster(Zostavax)( 2020-09-14 Completed Unive rsity of ingles) 00:00:00 [facility] Zoster(Zostavax)( 2020-09-14 Completed Unive rsity of ingles) 00:00:00 [place] [facility] Influenza High Dose 2020-07-13 Completed Unive rsity of 00:00:00 [facility] Influenza High Dose 2020-07-13 Completed Unive rsity of 00:00:00 [facility] Influenza High Dose 2020-07-13 Completed Unive rsity of 00:00:00 [facility] Influenza High Dose 2019-09-15 Completed Unive rsity of 00:00:00 [facility] Influenza High Dose 2019-09-15 Completed Unive rsity of 00:00:00 [facility] Influenza High Dose 2019-09-15 Completed Unive rsity of 00:00:00 [facility] Influenza Virus 2018-09-09 Completed Universit y of Vaccine 00:00:00 [facility] Influenza Virus 2018-09-09 Completed Universit y of Vaccine 00:00:00 [facility] Influenza Virus 2018-09-09 Completed Universit y of Vaccine 00:00:00 [facility] Influenza Virus 2018-09-09 Completed Universit y of Vaccine 00:00:00 [facility] Influenza Virus 2018-09-09 Completed Universit y of Vaccine 00:00:00 [facility] Influenza Virus 2018-09-09 Completed Universit y of Vaccine 00:00:00 [facility] Influenza Virus 2018-09-09 Completed Universit y of Vaccine 00:00:00 [facility] Influenza Virus 2018-09-09 Completed Universit y of Vaccine 00:00:00 [facility] Influenza Virus 2018-09-09 Completed Universit y of Vaccine 00:00:00 [facility] Influenza Virus 2018-09-09 Completed Universit y of Vaccine 00:00:00 [facility] Influenza Virus 2018-09-09 Completed Universit y of Vaccine 00:00:00 [facility] Influenza Virus 2018-09-09 Completed Universit y of Vaccine 00:00:00 [facility] Influenza Virus 2018-09-09 Completed Universit y of Vaccine 00:00:00 [facility] Influenza Virus 2018-09-09 Completed Universit y of Vaccine 00:00:00 [facility] Influenza Virus 2018-09-09 Completed Universit y of Vaccine 00:00:00 [facility] Influenza Virus 2018-09-09 Completed Universit y of Vaccine 00:00:00 [facility] Influenza Virus 2018-09-09 Completed Universit y of Vaccine 00:00:00 [facility] Influenza Virus 2018-09-09 Completed Universit y of Vaccine 00:00:00 [facility] Influenza Virus 2018-09-09 Completed Universit y of Vaccine 00:00:00 [facility] Influenza Virus 2018-09-09 Completed Universit y of Vaccine 00:00:00 [facility] Influenza Virus 2018-09-09 Completed Universit y of Vaccine 00:00:00 [facility] Pneumococcal 2016-11-02 Completed University o [...] blood 2021-11-02 17:17:00 109 mm[Hg] Univer sity [facility] Diastolic blood 2021-11-02 17:17:00 67 mm[Hg] Unive rsity [facility] Heart rate 2021-11-02 17:17:00 84 /min [facility] Body temperature 2021-11-02 17:17:00 36.44 Rpiyanka [facility] 2021-11-02 17:17:00 18 /min [facility] Oxygen saturation in 2021-11-02 17:17:00 95 /min [facility] Arterial blood by [facility] [place] [facility] Pulse oximetry Branch Body weight 2021-11-02 09:17:00 79.969 kg [facility] BMI 2021-11-02 09:17:00 27.61 kg/m2 [facility] Body height 2021-10-31 05:46:00 170.2 cm [facility] Systolic blood 2021-04-25 22:36:00 118 mm[Hg] Univer sity of pressure [facility] Diastolic blood 2021-04-25 22:36:00 70 mm[Hg] Unive rsity of [facility] Heart rate 2021-04-25 22:36:00 68 /min Universi ty of [place] [facility] Respiratory rate 2021-04-25 22:36:00 18 /min Univ ersity of [place] [facility] Oxygen saturation in 2021-04-25 22:36:00 99 /min University of Arterial blood by [facility] birdie Pulse oximetry Branch Body temperature 2021-04-25 15:42:00 36.44 Priyanka Univ ersity of [place] [facility] Body weight 2021-04-25 15:42:00 81.647 kg Universi ty of [place] [facility] BMI 2021-04-25 15:42:00 27.37 kg/m2 Universi ty [facility] [place] [facility] Systolic blood 2020-06-26 10:00:00 124 mm[Hg] Univer sity of pressure [place] [facility] Diastolic blood 2020-06-26 10:00:00 78 mm[Hg] Unive rsity of pressure [place] [facility] Respiratory rate 2020-06-26 10:00:00 18 /min Univ ersity of [place] [facility] Oxygen saturation in 2020-06-26 10:00:00 98 /min University of Arterial blood by [facility] [place] [facility] Pulse oximetry Branch Heart rate 2020-06-26 08:56:00 98 /min Universi ty of [place] [facility] Body temperature 2020-06-26 08:56:00 37.17 Priyanka Univ ersity of [place] [facility] Body weight 2020-06-26 08:56:00 74.844 kg Universi ty of [place] [facility] BMI 2020-06-26 08:56:00 25.09 kg/m2 Universi ty [facility] [place] [facility] Systolic blood 2020-06-26 10:00:00 124 mm[Hg] Univer sity of pressure [place] [facility] Diastolic blood 2020-06-26 10:00:00 78 mm[Hg] Unive rsity of pressure [place] [facility] Respiratory rate 2020-06-26 10:00:00 18 /min Univ ersity of [place] [facility] Oxygen saturation in 2020-06-26 10:00:00 98 /min University of Arterial blood by [facility] birdie Pulse oximetry Branch Heart rate 2020-06-26 08:56:00 98 /min Universi ty of [place] [facility] Body temperature 2020-06-26 08:56:00 37.17 Priyanka Univ ersity of [place] [facility] Body weight 2020-06-26 08:56:00 74.844 kg Universi ty [facility] [place] [facility] BMI 2020-06-26 08:56:00 25.09 kg/m2 Universi ty [facility] [place] [facility] Systolic blood 2020-05-24 15:47:29 166 mm[Hg] Univer sity of pressure [place] [facility] Diastolic blood 2020-05-24 15:47:29 89 mm[Hg] Unive rsity of pressure [place] [facility] Heart rate 2020-05-24 15:47:29 86 /min Universi ty of [place] [facility] Respiratory rate 2020-05-24 15:47:29 16 /min Univ ersity of [place] [facility] Oxygen saturation in 2020-05-24 15:47:29 97 /min University of Arterial blood by [place] [facility] Pulse oximetry Branch Body temperature 2020-05-24 11:44:00 36.94 Priyanka Univ ersity of [place] [facility] Body height 2020-05-24 11:44:00 172.7 cm Universi ty [facility] [place] [facility] Body weight 2020-05-24 11:44:00 74.844 kg Universi ty [facility] [place] [facility] BMI 2020-05-24 11:44:00 25.09 kg/m2 Universi ty [facility] [place] [facility] Systolic blood 2020-05-24 15:47:29 166 mm[Hg] Univer sity of pressure [place] [facility] Diastolic blood 2020-05-24 15:47:29 89 mm[Hg] Unive rsity of pressure [place] [facility] Heart rate 2020-05-24 15:47:29 86 /min Universi ty [facility] [place] [facility] Respiratory rate 2020-05-24 15:47:29 16 /min Univ ersity of [place] [facility] Oxygen saturation in 2020-05-24 15:47:29 97 /min University of Arterial blood by [place] [facility] Pulse oximetry Branch Body temperature 2020-05-24 11:44:00 36.94 Priyanka Univ ersity of [place] [facility] Body height 2020-05-24 11:44:00 172.7 cm Universi ty [facility] [place] [facility] Body weight 2020-05-24 11:44:00 74.844 kg Universi ty of [place] [facility] BMI 2020-05-24 11:44:00 25.09 kg/m2 [facility]i ty [facility] [place] [facility] Systolic blood 2020-03-24 02:31:00 127 mm[Hg] Univer sity of pressure [place] [facility] Diastolic blood 2020-03-24 02:31:00 72 mm[Hg] Unive rsity of pressure [place] [facility] Heart rate 2020-03-24 02:31:00 69 /min Universi ty [facility] [place] [facility] Body temperature 2020-03-24 02:31:00 36.39 Priyanka Univ ersity of [place] [facility] Respiratory rate 2020-03-24 02:31:00 18 /min Univ ersity of [place] [facility] Oxygen saturation in 2020-03-24 02:31:00 97 /min University of Arterial blood by [place] [facility] Pulse oximetry Branch Systolic blood 2020-03-23 21:35:00 100 mm[Hg] Univer sity of pressure [place] [facility] Diastolic blood 2020-03-23 21:35:00 59 mm[Hg] Unive rsity of pressure [place] [facility] Heart rate 2020-03-23 21:35:00 79 /min Universi ty of [place] [facility] Body temperature 2020-03-23 21:35:00 36.78 Priyanka Univ ersity of [place] [facility] Respiratory rate 2020-03-23 21:35:00 18 /min Univ ersity of [place] [facility] Oxygen saturation in 2020-03-23 21:35:00 99 /min University of Arterial blood by [place] [facility] Pulse oximetry Branch Body weight 2020-03-23 09:41:00 76.613 kg Universi ty of [place] [facility] BMI 2020-03-23 09:41:00 26.45 kg/m2 Universi ty [facility] [place] [facility] Body height 2020-03-23 03:43:00 170.2 cm [facility]i ty [facility] [place] [facility] Systolic blood 2020-03-21 20:55:00 128 mm[Hg] Univer sity of pressure [place] [facility] Diastolic blood 2020-03-21 20:55:00 61 mm[Hg] Unive rsity of pressure [place] [facility] Heart rate 2020-03-21 20:55:00 75 /min Universi ty of [place] [facility] Respiratory rate 2020-03-21 20:55:00 10 /min Univ ersity of [place] [facility] Oxygen saturation in 2020-03-21 20:55:00 98 /min University of Arterial blood by [place] [facility] Pulse oximetry Branch Body temperature 2020-03-21 20:03:00 37.83 Priyanka Univ ersity of [place] [facility] Body height 2020-03-21 20:03:00 170.2 cm Universi ty [facility] [place] [facility] Body weight 2020-03-21 20:03:00 76.204 kg Universi ty [facility] [place] [facility] BMI 2020-03-21 20:03:00 26.31 kg/m2 [facility]i ty [facility] [place] [facility] Systolic blood 2020-03-07 20:50:00 118 mm[Hg] Univer sity of pressure [place] [facility] Diastolic blood 2020-03-07 20:50:00 65 mm[Hg] Unive rsity of pressure [place] [facility] Heart rate 2020-03-07 20:50:00 85 /min Universi ty [facility] [place] [facility] Body temperature 2020-03-07 20:50:00 36.39 Priyanka Univ ersity of [place] [facility] Respiratory rate 2020-03-07 20:50:00 18 /min Univ ersity of [place] [facility] Oxygen saturation in 2020-03-07 20:50:00 95 /min University of Arterial blood by [place] [facility] Pulse oximetry Branch Body height 2020-03-05 02:35:00 172.7 cm Universi ty [facility] [place] [facility] Body weight 2020-03-05 02:35:00 73.483 kg Universi ty [facility] [place] [facility] BMI 2020-03-05 02:35:00 24.63 kg/m2 [facility]i [facility] [place] [facility] Systolic blood 2020-03-02 15:49:00 122 mm[Hg] Univer sity of pressure [place] [facility] Diastolic blood 2020-03-02 15:49:00 81 mm[Hg] Unive rsity of pressure [place] [facility] Heart rate 2020-03-02 15:49:00 89 /min [facility]i ty [facility] [place] [facility] Body temperature 2020-03-02 15:49:00 37.06 Priyanka Univ ersity of [place] [facility] Respiratory rate 2020-03-02 15:49:00 19 /min Univ ersity of [place] [facility] Oxygen saturation in 2020-03-02 15:49:00 96 /min University of Arterial blood by [place] [facility] Pulse oximetry Branch Body height 2020-03-01 00:54:00 170.2 cm [facility]i ty [facility] [place] [facility] Body weight 2020-03-01 00:54:00 76.975 kg [facility]i ty [facility] [place] [facility] BMI 2020-03-01 00:54:00 26.58 kg/m2 [facility] [place] [facility] Systolic blood 2020-01-17 21:08:00 116 mm[Hg] Univer sity of pressure [facility] Diastolic blood 2020-01-17 21:08:00 78 mm[Hg] [facility] Heart rate 2020-01-17 21:08:00 88 /min [facility] Body temperature 2020-01-17 21:08:00 36.72 Priyanka [facility] Respiratory rate 2020-01-17 21:08:00 18 /min [facility] Oxygen saturation in 2020-01-17 21:08:00 98 /min [facility] Arterial blood by [facility] [place] [facility] Pulse oximetry [place] Body height 2020-01-16 06:21:00 172.7 cm [facility] Body weight 2020-01-16 04:35:00 83.462 kg [facility] BMI 2020-01-16 04:35:00 27.98 kg/m2 [facility] Procedures Procedure Date / Time Performing Clinician Source Performed EXTERNAL PROVIDER RECORDS 2021-11-19 06:01:00 Doctor Unassigned, [facility] [place] [facility] POCT GLUCOSE (AUTOMATED) 2021-11-02 22:49:00 Aida Shah [facility] POCT GLUCOSE (AUTOMATED) 2021-11-02 17:06:00 Aida Shah [facility] POCT GLUCOSE (AUTOMATED) 2021-11-02 13:30:00 Aida Shah [facility] TROPONIN I 2021-11-02 09:29:00 Alexandra Hdz [facility] BASIC METABOLIC PANEL 2021-11-02 09:29:00 Sridhar Gordon [facility] (NA, K, CL, CO2, GLUCOSE, Medica l Branch BUN, CREATININE, CA) CBC WITH DIFF 2021-11-02 09:29:00 Sridhar Gordon [facility] N-TERMINAL PRO-BNP 2021-11-02 09:29:00 [facility] POCT GLUCOSE (AUTOMATED) 2021-11-02 01:27:00 Aida Shah [facility] POCT GLUCOSE (AUTOMATED) 2021-11-01 17:37:00 AlyssaKeerthii [facility] POCT GLUCOSE (AUTOMATED) 2021-11-01 13:40:00 AlyssaKeerthii [facility] POCT GLUCOSE (AUTOMATED) 2021-11-01 01:10:00 Aida Shah [facility] POCT GLUCOSE (AUTOMATED) 2021-10-31 22:28:00 Alyssa Aida Nilda [facility] POCT GLUCOSE (AUTOMATED) 2021-10-31 17:29:00 [facility] 2021-10-31 16:25:00 Alexandra Hdz [facility] TRANSTHORACIC ECHO (TTE) 2021-10-31 15:53:00 Alexandra Hdz [facility] COMPLETE W/ CONTRAST Medical [facility] POCT GLUCOSE (AUTOMATED) 2021-10-31 13:39:00 Martha Drake [facility] TROPONIN I 2021-10-31 10:08:00 [facility] MET[facility]OLIC PANEL 2021-10-31 10:08:[facility] ([facility], K, CL, CO2, GLUCOSE, Medica l Branch BUN, CREATININE, CA) LIPID PANEL ([id number])(TOTAL 2021-10-31 10:08:00 Alexandra Hdz [facility] CHOLESTEROL, [facility] TRIGLYCERIDES, HDL) CBC WITH DIFF 2021-10-31 10:08:00 [facility] URINALYSIS 2021-10-31 10:08:00 [facility] N-TERMINAL PRO-BNP 2021-10-31 10:08:00 Alexandra Hdz [facility] TROPONIN I 2021-10-31 06:17:00 [facility]ST 1 VW 2021-10-31 01:30:56 Martha Drake [facility] LIPASE 2021-10-31 01:25:00 Martha Drake [facility] TROPONIN I 2021-10-31 01:25:00 Martha Draek [facility] COMP. METABOLIC PANEL 2021-10-31 01:25:00 Martha Drake [facility] ([id number]) Medical Branch CBC WITH DIFF 2021-10-31 01:25:00 Martha Drake [facility] GLYCOSYLATED HEMOGLOBIN 2021-10-31 01:25:00 Sarah Harrell [facility] (A1C) [facility] PROTHROMBIN TIME / INR 2021-10-31 01:25:00 Martha Drake [facility] ACTIVATED PARTIAL 2021-10-31 01:25:00 Martha Drake [facility] N-TERMINAL PRO-BNP 2021-10-31 01:25:00 Martha Drake [facility] COVID-19 (ID NOW RAPID 2021-10-31 01:25:00 Martha Drake [facility] TESTING) Medical Branch LAB ONLY COVID 2021-10-31 01:25:00 Martha Drake [facility] INTERPRETATION [facility] HB ECG ROUTINE & RHYTHM 2021-10-31 01:20:03 Martha Drake [facility] STRIP [facility] URINALYSIS 2021-04-25 21:01:00 Nallely Zhao [facility] XR LUMBAR SPINE 2 VW 2021-04-25 18:41:00 Nallely Zhao [facility] XR HIPS 2 VW LEFT 2021-04-25 18:41:00 Nallely Zhao [facility] CONSENT/REFUSAL FOR 2021-04-25 15:43:06 Doctor Unassigned, [facility] DIAGNOSIS AND TREATMENT [place] [facility] CT CERVICAL SPINE WO 2020-06-26 09:35:01 Martha Drake [facility] CONTRAST [facility] CT LUMBAR SPINE WO 2020-06-26 09:35:01 Martha Drake [facility] CT THORACIC SPINE WO 2020-06-26 09:35:01 Martha Drake [facility] CONTRAST [facility] UNILATERAL DUPLEX SCAN OF 2020-05-24 14:53:40 [facility] BY [facility]ULAR LAB Medical B ranch XR ANKLE 3+ VW LEFT 2020-05-24 13:22:26 Charanjit Heck [facility] HEPATIC FUNCTION PANEL 2020-05-24 13:13:00 Charanjit Heck [facility] ([id number]) (ALB,T.PRO,BILI Medical Branch T,BU/BC,ALT,AST,ALK PHOS) BASIC METABOLIC PANEL 2020-05-24 13:13:00 Charanjit Heck [facility] (NA, K, CL, CO2, GLUCOSE, Medica l Branch BUN, CREATININE, CA) CBC WITH DIFFERENTIAL 2020-05-24 13:13:00 Charanjit Heck [facility] PROTHROMBIN TIME / INR 2020-05-24 13:13:00 Charanjit Heck [facility] ACTIVATED PARTIAL 2020-05-24 13:13:00 Charanjit Heck [facility] NOTICE OF PRIVACY 2020-05-24 11:38:26 Doctor Unassigned, [facility] PRACTICES [place] [facility] [place] CONSENT/REFUSAL FOR 2020-05-24 11:35:52 Doctor Unacassie, [facility] DIAGNOSIS AND TREATMENT [place] [facility] POCT GLUCOSE (AUTOMATED) 2020-03-23 22:32:00 Jamel Flores [facility] POCT GLUCOSE (AUTOMATED) 2020-03-23 18:07:00 Jamel Flores [facility] POCT GLUCOSE (AUTOMATED) 2020-03-23 14:57:00 Jamel Flores [facility] ECHO ROUTINE W/DOPPLER 2020-03-23 13:33:57 Tereza Cano [facility] COLOR [facility] EKG-12 LEAD 2020-03-23 12:56:59 Jamel Flores [facility] MAGNESIUM 2020-03-23 11:15:00 Tereza Cano [facility] TROPONIN I 2020-03-23 11:15:00 Bodani, [facility] BASIC METABOLIC PANEL 2020-03-23 11:15:00 [facility] (NA, K, CL, CO2, GLUCOSE, Medica l Branch BUN, CREATININE, CA) PROTHROMBIN TIME / INR 2020-03-23 11:15:00 Tereza Cano [facility] ACTIVATED PARTIAL 2020-03-23 11:15:00 Jerome [facility] EKG-12 LEAD 2020-03-23 07:51:19 Jamel Flores [facility] MAGNESIUM 2020-03-23 05:55:00 Jerome [facility] TROPONIN I 2020-03-23 05:55:00 Jerome [facility] BASIC METABOLIC PANEL 2020-03-23 05:55:00 Jerome [facility] (NA, K, CL, CO2, GLUCOSE, Medica l Branch BUN, CREATININE, CA) LIPID PANEL ([id number])(TOTAL 2020-03-23 05:55:00 Tereza Cano [facility] CHOLESTEROL, [facility] TRIGLYCERIDES, HDL) PROTHROMBIN TIME / INR 2020-03-23 02:55:00 Sallie Eckert [facility] ACTIVATED PARTIAL 2020-03-23 02:55:00 Babar [facility] XR CHEST 2 VW 2020-03-23 01:52:37 Esteban Singletary [facility] CORONAVIRUS COVID-19 2020-03-23 00:50:00 Esteban Singletary [facility] TESTING [facility] FERRITIN SERUM 2020-03-22 23:36:00 [facility] 2020-03-22 23:36:00 Esteban Singletary [facility] COMP. METABOLIC PANEL 2020-03-22 23:36:00 Esteban Singletary [facility] ([id number]) Medical Branch IRON PANEL 2020-03-22 23:36:00 Jerome [facility] CBC WITH DIFFERENTIAL 2020-03-22 23:36:00 Singletary, [facility] N-TERMINAL PRO-BNP 2020-03-22 23:36:00 Esteban Singletary [facility] EKG-12 LEAD 2020-03-22 23:08:53 Hayder [facility] EKG-12 LEAD 2020-03-22 23:08:15 Hayder [facility] XR CHEST 1 VW 2020-03-21 20:42:35 Myles Harry [facility] LACTIC ACID WHOLE BLOOD 2020-03-21 20:38:00 Myles Harry [facility] LIPASE 2020-03-21 20:19:00 Myles Harry [facility] TROPONIN I 2020-03-21 20:19:00 Myles Harry [facility] COMP. METABOLIC PANEL 2020-03-21 20:19:00 Myles Harry [facility] ([id number]) [facility] PROTHROMBIN TIME / INR 2020-03-21 20:19:00 Myles Harry [facility] N-TERMINAL PRO-BNP 2020-03-21 20:19:00 Myles Harry [facility] CORONAVIRUS COVID-19 2020-03-21 20:19:00 Myles Harry [facility] EKG-12 LEAD 2020-03-21 20:11:28 Myles Harry [facility] POCT GLUCOSE (AUTOMATED) 2020-03-07 20:56:00 Sarah Harrell [facility] POCT GLUCOSE (AUTOMATED) 2020-03-07 15:34:00 Sarah Harrell [facility] POCT GLUCOSE (AUTOMATED) 2020-03-07 12:56:00 [facility] URIC ACID 2020-03-07 10:14:00 Holland Briscoe [facility] TROPONIN I 2020-03-07 10:14:00 Lulu Harris [place] [facility] BASIC METABOLIC PANEL 2020-03-07 10:14:00 Sarah Harrell [facility] (NA, K, CL, CO2, GLUCOSE, Medica l Branch BUN, CREATININE, CA) CBC WITH DIFFERENTIAL 2020-03-07 10:14:00 Julio Cesar [facility] N-TERMINAL PRO-BNP 2020-03-07 10:14:00 Lulu Harris [facility] POCT GLUCOSE (AUTOMATED) 2020-03-06 21:16:00 Edionrosalio [facility] POCT GLUCOSE (AUTOMATED) 2020-03-06 16:10:00 Edionrosalio [facility] POCT GLUCOSE (AUTOMATED) 2020-03-06 12:38:00 Edconsuelo [facility] TROPONIN I 2020-03-06 08:51:00 Lulu Harris [facility] BASIC METABOLIC PANEL 2020-03-06 08:51:00 [facility] (NA, K, CL, CO2, GLUCOSE, Medica l Branch BUN, CREATININE, CA) CBC WITH DIFFERENTIAL 2020-03-06 08:51:00 Julio Cesar [facility] POCT GLUCOSE (AUTOMATED) 2020-03-06 01:16:00 Edconsuelo [facility] TROPONIN I 2020-03-05 23:25:00 Edconsuelo [facility] POCT GLUCOSE (AUTOMATED) 2020-03-05 21:14:00 Edconsuelo [facility] POCT GLUCOSE (AUTOMATED) 2020-03-05 16:39:00 Edionrosalio [facility] POCT GLUCOSE (AUTOMATED) 2020-03-05 12:47:00 Edionrosalio [facility] TROPONIN I 2020-03-05 09:50:00 [facility] BASIC METABOLIC PANEL 2020-03-05 09:50:00 [facility] (NA, K, CL, CO2, GLUCOSE, Medica l Branch BUN, CREATININE, CA) CBC WITH DIFFERENTIAL 2020-03-05 09:50:00 [facility] 2020-03-05 00:36:54 Bobo Urrutia [facility] EKG-12 LEAD 2020-03-05 00:31:03 Bobo Urrutia [facility] CORONAVIRUS COVID-19 2020-03-05 00:03:00 Charanjit Heck [facility] TESTING [facility] XR CHEST 1 VW 2020-03-04 23:58:59 Charanjit Heck [facility] LIPASE 2020-03-04 23:29:00 Charanjit Heck [facility] TROPONIN I 2020-03-04 23:29:00 Charanjit Heck [facility] HEPATIC FUNCTION PANEL 2020-03-04 23:29:00 Charanjit Heck [facility] ([id number]) (ALB,T.PRO,BILI Medical Branch T,BU/BC,ALT,AST,ALK PHOS) BASIC METABOLIC PANEL 2020-03-04 23:29:00 Charanjit Heck [facility] (NA, K, CL, CO2, GLUCOSE, Medica l Branch BUN, CREATININE, CA) CBC WITH DIFFERENTIAL 2020-03-04 23:29:00 Charanjit Heck [facility] PROTHROMBIN TIME / INR 2020-03-04 23:29:00 Charanjit Heck [facility] ACTIVATED PARTIAL 2020-03-04 23:29:00 Charanjit Heck [facility] N-TERMINAL PRO-BNP 2020-03-04 23:29:00 Charanjit Heck [facility] EKG-12 LEAD 2020-03-04 23:15:42 Charanjit Heck [facility] EKG-12 LEAD 2020-03-04 23:10:23 Charanjit Heck [facility] EMERGENCY DEPARTMENT 2020-03-04 05:01:00 Doctor Unassigned, [facility] DOCUMENTS [place] [facility] POCT GLUCOSE (AUTOMATED) 2020-03-02 15:52:00 Lulu Harris [facility] POCT GLUCOSE (AUTOMATED) 2020-03-02 12:39:00 Lulu Harris [facility] MAGNESIUM 2020-03-02 08:57:00 Carolyn, [facility] BASIC METABOLIC PANEL 2020-03-02 08:57:00 Carolyn [facility] (NA, K, CL, CO2, GLUCOSE, Medica l Branch BUN, CREATININE, CA) N-TERMINAL PRO-BNP 2020-03-02 08:57:00 Carolyn [facility] POCT GLUCOSE (AUTOMATED) 2020-03-01 20:39:00 Lulu Harris [facility] MAGNESIUM 2020-03-01 08:43:00 [facility] 2020-03-01 08:43:00 Carolyn [facility] BASIC METABOLIC PANEL 2020-03-01 08:43:00 Lulu Harris [facility] (NA, K, CL, CO2, GLUCOSE, Medica l Branch BUN, CREATININE, CA) CBC WITH DIFFERENTIAL 2020-03-01 08:43:00 Steven [facility] N-TERMINAL PRO-BNP 2020-03-01 08:43:00 Carolyn [facility] VITAMIN B12, LEVEL 2020-03-01 03:49:00 Carolyn [facility] FOLATE 2020-03-01 03:49:00 Carolyn [facility] SEDIMENTATION RATE 2020-03-01 03:49:00 Carolyn [facility] POCT GLUCOSE (AUTOMATED) 2020-03-01 03:39:00 Lulu Harris [facility] PHOSPHORUS 2020-03-01 02:28:00 Steven [facility] URIC ACID 2020-03-01 02:28:00 Carolyn [facility] TROPONIN I 2020-03-01 02:28:00 Carolyn [facility] HEPATIC FUNCTION PANEL 2020-03-01 02:28:00 Carolyn alek [facility] ([id number]) (ALB,T.PRO,BILI Medical Branch T,BU/BC,ALT,AST,ALK PHOS) PROTHROMBIN TIME / INR 2020-03-01 02:28:00 Ivory Leon [facility] N-TERMINAL PRO-BNP 2020-03-01 02:28:00 Lulu Harris [facility] PROCALCITONIN 2020-03-01 02:28:00 Carolyn [facility] EKG-12 LEAD 2020-03-01 01:54:29 Carolyn [facility] EKG-12 LEAD 2020-02-29 23:16:21 Bobo Urrutia [facility] XR CHEST 1 VW COVID 2020-02-29 23:14:25 Bobo Urrutia [facility] EKG-12 LEAD 2020-02-29 23:13:50 Bobo Urrutia [facility] LACTIC ACID WHOLE BLOOD 2020-02-29 22:21:00 Bobo Urrutia [facility] CORONAVIRUS COVID-19 2020-02-29 22:20:00 Bobo Urrutia [facility] CREATINE KINASE 2020-02-29 22:14:00 Carolyn [facility] URIC ACID 2020-02-29 22:14:00 Carolyn [facility] LIPASE 2020-02-29 22:14:00 Bobo Urrutia [facility] MAGNESIUM 2020-02-29 22:14:00 Carolyn [facility] TROPONIN I 2020-02-29 22:14:00 Bobo Urrutia [facility] THYROID STIMULATING 2020-02-29 22:14:00 Carolyn [facility] HORMONE [facility] BASIC METABOLIC PANEL 2020-02-29 22:14:00 Bobo Urrutia [facility] (NA, K, CL, CO2, GLUCOSE, Medica l Branch BUN, CREATININE, CA) CBC WITH DIFFERENTIAL 2020-02-29 22:14:00 Bobo Urrutia [facility] GLYCOSYLATED HEMOGLOBIN 2020-02-29 22:14:00 Ivory Leon [facility] (A1C) [facility] N-TERMINAL PRO-BNP 2020-02-29 22:14:00 Ivory Leon [facility] EKG-12 LEAD 2020-02-29 21:59:12 Bobo Urrutia [facility] EKG-12 LEAD 2020-02-29 21:48:49 Bobo Urrutia [facility] EMERGENCY DEPARTMENT 2020-02-29 05:01:00 Doctor Unassigned, [facility] DOCUMENTS [place] [facility] POCT GLUCOSE (AUTOMATED) 2020-01-17 18:15:00 Edconsuelo [facility] TROPONIN I 2020-01-17 16:31:00 Julio Cesar [facility] ACTIVATED PARTIAL 2020-01-17 16:31:[address] [facility] POCT GLUCOSE (AUTOMATED) 2020-01-17 11:56:00 Julio Cesar [facility] TROPONIN I 2020-01-17 09:52:00 Julio Cesar [facility] BASIC METABOLIC PANEL 2020-01-17 09:52:00 [facility] (NA, K, CL, CO2, GLUCOSE, Medica l Branch BUN, CREATININE, CA) CBC WITH DIFFERENTIAL 2020-01-17 09:52:00 [facility] PART[facility] 2020-01-17 09:52:00 [facility] PO[facility]SE (AUTOMATED) 2020-01-16 23:59:00 Julio Cesar [facility] EKG-12 LEAD 2020-01-16 22:15:50 Julio Cesar [facility] TROPONIN I 2020-01-16 20:04:00 Julio Cesar [facility] ACTIVATED PARTIAL 2020-01-16 20:04:00 Ayo [facility] POCT GLUCOSE (AUTOMATED) 2020-01-16 17:05:00 Julio Cesar [facility] POCT GLUCOSE (AUTOMATED) 2020-01-16 13:38:00 Edconsuelo [facility] TROPONIN I 2020-01-16 11:11:00 Julio Cesar [facility] LIPID PANEL ([id number])(TOTAL 2020-01-16 11:11:00 [facility] TRIGLY[facility], HDL) ACTIVATED PARTIAL 2020-01-16 11:11:00 Julio Cesar [facility] CRITICAL CARE 2020-01-16 05:48:18 Charanjit Heck [facility] XR CHEST 1 VW 2020-01-16 04:46:44 Charanjit Heck [facility] TROPONIN I 2020-01-16 04:38:00 Umang Charanjit [facility] HEPATIC FUNCTION PANEL 2020-01-16 04:38:00 Charanjit Heck [facility] ([id number]) (ALB,T.PRO,BILI Medical Branch T,BU/BC,ALT,AST,ALK PHOS) BASIC METABOLIC PANEL 2020-01-16 04:38:00 Umang Charanjit [facility] (NA, K, CL, CO2, GLUCOSE, Medica l Branch BUN, CREATININE, CA) CBC WITH DIFFERENTIAL 2020-01-16 04:38:00 Umang Charanjit [facility] GLYCOSYLATED HEMOGLOBIN 2020-01-16 04:38:00 [facility] PROTHROMBIN TIME / INR 2020-01-16 04:38:00 Charanjit Heck [facility] ACTIVATED PARTIAL 2020-01-16 04:38:00 Umang [facility] N-TERMINAL PRO-BNP 2020-01-16 04:38:00 Charanjit Heck [facility] EKG-12 LEAD 2020-01-16 04:37:48 Umang Charanjit [facility] EKG-12 LEAD 2020-01-16 04:35:35 Umang Charanjit [facility] AUTHORIZATION FOR RELEASE 2019-07-12 05:01:00 Doctor Unassigned, [facility] [place] [facility] Encounters Start End Encounter Admission Attending Care Care Encounter Source Date/Time Date/Time Type Type Clinicians Facility Department ID 2021-12-16 Inpatient SERA Villavicencio [id number] [facility] 11:30:00 [facility] 2021-12-16 Outpatient STLMLC STLMLC [id number] 09[facility]19:01 [facility] 2021-12-11 Outpatient Letser, STLMLC STLMLC [id number] 14:38:21 Annel[facility]e [facility] 2021-12-11 Outpatient Lester, STLMLC STLMLC [id number] 11:50:18 [facility]e [facility] 2021-09-16 Emergency [facility] [id number] Univers 00:23:34 ity [facility] 2021-09-13 Emergency [facility] [id number] Univers [facility] [id number] Univers 05:40:48 [facility] 2021-12-25 2021-12-25 Inpatient ATTAR, [facility] [id number] [place] 00:00:00 00:00:[address] 2021-12-19 2021-12-25 Inpatient LAUREN, [facility] [id number] [place] 00:00:00 00:00:00 JAYSON [address] 2021-12-24 2021-12-24 ambulatory STLMLC STLMLC [id number] [facility] 2021-12-20 2021-12-20 Inpatient ATTAR, [facility] [id number] [place] 00:00:00 00:00:[address] 2021-12-17 2021-12-17 ambulatory STLMLC STLMLC [id number] [facility] 2021-12-16 2021-12-16 ambulatory STLMLC STLMLC [id number] [facility] 2021-11-19 2021-11-19 Jose Alejandro JONES [id number] Univers 00:00:00 00:00:00 Only Unassigned, ASHLEIGH [id number] ity of [place] [facility] [id number] [place] as [phone] [facility] 009 Branch 2021-11-04 2021-11-04 Transition SHAREE Maria [id number] Univers 00:00:00 00:00:00 of Care Supa GREW[place] [id number] [id number] [phone] [facility] 403 Branch 2021-10-30 2021-11-02 Inpatient X ALYSSA [facility] ZEFERINO [id number] Univers 19:14:00 18:15:00 AIDA ity of [facility] 2021-10-30 2021-11-02 [facility] 1.2.840. [id number] Univers 19:14:00 18:15:00 Encounter Aida Shah [id number] ity of [place] [id number] [facility] [phone] [facility] 081 Branch 2021-05-17 2021-05-17 Letter PcpROBERT [id number] Univers 00:00:00 00:00:00 (Out) Patient ASHLEIGH [id number] it y of [place] Not HOSPITAL [id number] [phone] [facility] 019 Branch 2021-04-25 2021-04-25 Emergency Cece, TRAUMA [id number] Univers 10:43:00 17:38:00 [facility] [id number] i ty of Ceas[place] 4.2.7.2.686 [facility] [phone] [facility] 014 Branch 2020-06-26 2020-06-26 Emergency [facility] [id number] Univers 03:50:00 06:45:00 Martha Cortez [id number] ity of [place] [phone] [facility] 084 [place] 2020-06-26 2020-06-26 Emergency rica, [facility] [id number] 03:50:00 06:45:00 Martha Cortez [id number] [place] [id number] Creole [phone] [facility] 2020-05-24 2020-05-24 Emergency [facility] [id number] [facility] 06:40:47 10:54:00 Charanjit Cortez [id number] i ty of [place] [phone] [address] 2020-05-24 2020-05-24 Emergency [facility] [id number] 06:40:47 10:54:00 Charanjit Cortez [id number] [place] [id number] Creole [phone] [facility] 2020-03-29 2020-03-29 Jamel Dunn [id number] Univers 00:00:00 00:00:00 (Out) T [place] [id number] it y of Hospital [id number] [place] [phone] [facility] 089 [place] 2020-03-29 2020-03-29 Jamel Dunn 1.2.840.114 [id number] 00:00:00 00:00:00 (Out) T [place] [id number] Hospital [id number] [id number] [facility] 2020-03-26 2020-03-26 Transition Sharee George [id number] Univers 00:00:00 00:00:00 of Care Sherrell Grewal [id number] [place] [phone] [facility] 403 Branch 2020-03-26 2020-03-26 Transition Sharee George [id number] 00:00:00 00:00:00 of Care Sherrell Grewal [id number] [place] 4.2.7.2.686 [id number] 403 2020-03-22 2020-03-23 Emergency Sallie Eckert 1.2.840. 114 [id number] Univers 18:02:47 21:55:00 Jamel Flores [id number] ity of [facility] [id number] [place] [phone] [place] [id number] 2020-03-22 2020-03-23 Outpatient X JAMEL FLORES [facility] [id number] Univers 18:02:47 21:55:00 ity of [facility] 2020-03-21 2020-03-21 Emergency [facility] [id number] Univers 15:02:08 17:16:00 Myles Sharon Cortez [id number] i ty of [place] 4.2.7.2.686 [facility] [phone] [address] 2020-03-21 2020-03-21 Emergency X [facility] ERT [id number] Univers 15:02:08 17:16:00 MYLES ity [facility] 2020-03-13 2020-03-13 Outpatient Raju_P [facility] MMG [id number] [place] 05:24:00 05:24:00 0428 [facility] 2020-03-08 2020-03-08 Transition Sharee Cool [id number] Univers 00:00:00 00:00:00 of Care Prema Grewal [id number] [id number] [phone] [facility] 403 Branch 2020-03-04 2020-03-07 [facility] Umang Charanjit [facility] 1.2.840.1 [id number] Univers 18:01:05 18:00:00 Encounter Sarah Harrell [id number] it[place] of [id number] [phone] [facility] 081 Branch 2020-03-04 2020-03-07 Inpatient X JULIO CESAR [facility] [id number] Univers 18:01:05 18:00:00 SARAH leon [facility] 2020-03-03 2020-03-03 Transition Sharee Silva 1.2.840.114 [id number] Univers 00:00:00 00:00:00 of Care Isatu Grewal [id number] [id number] [phone] [facility] 403 [place] 2020-02-29 2020-03-02 [facility] Bobo Urrutia [facility] 1.2.840.11 [id number] Univers 16:53:09 12:18:00 Encounter Lulu Harris [id number] [place] [phone] [facility] [address] 2020-02-29 2020-03-02 Inpatient X ARPITAUDREY [facility] [id number] Univers 16:53:09 12:18:00 LULU margarethazra [facility] 2020-02-15 2020-02-15 Outpatient [facility] [id number] Univers 11:30:00 11:30:00 THUYDANIELLA [facility] 2020-02-15 2020-02-15 [facility] 1.2.840.114 [id number] Univers 08:13:42 08:43:42 ne Visit Kathrin Cortez 350.1.13.10 [place] [facility] [phone] N[place] dical nal 220 [facility] 2020-01-18 2020-01-18 Transition Sharee Harvey 1.2.840.114 [id number] Univers 00:00:00 00:00:00 of Care Ana M Grewal 350.1.13.10 [place] [id number] [address] 2020-01-15 2020-01-17 [facility] Charanjit Heck [facility] 1.2.840.1 [id number] Univers 22:33:37 16:58:00 Encounter Sarah Harrell 350.1.13.10 ity of [place] 4.2.7.2.686 [facility] [phone] [facility] [address] 2020-01-15 2020-01-17 [facility]patient [facility] [id number] Univers 22:33:37 16:58:00 BRIGIDAY ity of [facility] 2019-10-07 2019-10-07 [facility] [id number] 10:48:00 10:48:00 [facility] Outpati ent Clinics 2019-10-05 2019-10-05 [facility] [id number] 16:06:00 16:06:00 [facility] 2019-07-27 2019-07-27 [facility] 1.2.840.114 [id number] Univers 00:00:00 00:00:00 [facility] [place] 350.1.13.10 i ty [facility] 4.2.7.2.686 [facility] [phone] Nj dical [facility] [address] [facility] 2019-07-12 2019-07-12 [facility] [id number] 16:24:00 16:24:00 [facility] Outpati ent Clinics 2019-07-12 2019-07-12 Orders Doctor JONES 1.2.840.114 [id number] Univers 00:00:00 00:00:00 Only Unassigned, ASHLEIGH 350.1.13.10 ity of [place] [facility] 4.2.7.2.686 [place] [phone] [facility] [address] 2019-07-06 2019-07-06 [facility] [id number] 14:00:00 14:00:00 [facility] Clin[facility] Results Test Description Test Time Test Comments Results Result Comments Source SARS-CoV-2 (COVID-19) RNA [Presence] in Respiratory sp ecimen by 2021-12-20 07:04:48 ERI with probe detection Test Item Value Reference Range Interpretation Comme nts SARS-CoV-2 (COVID-19) RNA [Presence] in Respiratory Not detected No t-Detected specimen by ERI with probe detection (test code = 48826-9) 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 (test code = 15068-3) Whether the patient has symptoms related to condition of interest (test code = 06171-0) Patient was hospitalized because of this condition (test code = 47427-2) Whether the patient was admitted to intensive care unit (ICU) for condition of interest (test code = 31445-6) Whether patient resides in a congregate care setting (test code = 64386-3) POCT GLUCOSE (AUTOMATED)2021-11-02 22:57:12 Test Item Value Reference Range Interpretation Comments POCT GLU (test code = 2624920359) 224 mg/dL 70-110 H Lab Interpretation (test code = Abnormal 53878-5) [facility] LE[facility]OUT[facility] [id number] 22:37:57 Test Item Value Reference Range Interpretation Comments Lab Interpretation (test code = Abnormal 14943-4) [facility]2021-11-02 17:43:02 Test Item Value Reference Range Interpretation Comments POCT GLU (test code = 6915051062) 264 mg/dL 70-110 H Lab Interpretation (test code = Abnormal 26382-6) [facility] [id number] 15:07:47 Test Item Value Reference Interpretation Comments Range TROPONIN I (test 0.064 ng/mL See_Comment H [Automated code = 7038745457) message] The system which generated this result [...] biotin. Lab Interpretation Abnormal (test code = 39233-3) [facility]AL [id number] 15:04:26 Test Item Value Reference Range Interpretation Comments NT-proBNP (test code 800 pg/mL See_Comment H [Autom ated = 8588832955) message] The system which generated this result transmitted reference range : <=450. The reference range was not used to interpret this result as normal/abnormal . ALYSSA (test code = ALYSSA) Biotin has been reported to cause a negative bias, interpret results relative to patient's use of biotin. Lab Interpretation Abnormal (test code = 93474-2) [facility]2021-11-02 13:36:38 Test Item Value Reference Range Interpretation Comments POCT GLU (test code = 7261565304) 185 mg/dL 70-110 H Lab Interpretation (test code = Abnormal 60887-4) [facility]OLIC PANEL (NA, K, CL, CO2, GLUCOSE, BUN, CREATININE, CA)2021-11-02 10:26:43 Test Item Value Reference Range Interpretation Comments NA (test code = 136 mmol/L 135-145 6390495093) K (test code = 4.0 mmol/L 3.5-5.0 9178082097) CL (test code = 99 mmol/L 98-108 8998673524) CO2 TOTAL (test code = 27 mmol/L 23-31 5932649303) AGAP (test code = 2-16 4149200701) BUN (test code = 30 mg/dL 7-23 H 5396045642) GLUCOSE (test code = 165 mg/dL 70-110 H 1521259868) CREATININE (test code = 1.42 mg/dL 0.60-1.25 H 8750471742) CALCIUM (test code = 9.5 mg/dL 8.6-10.6 9355576471) eGFR (test code = mL/min/1.73m2 1260827492) ALYSSA (test code = ALYSSA) Association of [...] tests). Lab Interpretation Abnormal (test code = 44768-8) [facility] WITH [id number] 10:01:58 Test Item Value Reference Range Interpretation Comments WBC (test code = See_Comment [Automated 0015-2) message] The sy stem which generated this result transmitted reference range : 4.20 - 10.70 10*3/?L. The reference range was not used to interpret this result as normal/abnormal . RBC (test code = See_Comment L [Automated 906-8) message] The sy stem which generated this [...] RDW-SD (test code = 39.8 fL 38.5-51.6 25885-0) RDW-CV (test code = 11.5 % 12.1-15.4 L 788-0) PLT (test code = See_Comment [Automated 777-3) message] The sy stem which generated this result transmitted reference range : 150 - 328 10*3/ ?L. The reference r corey was not used to interpret this result as normal/abnormal . MPV (test code = 10.5 fL 9.8-13.0 21197-1) NRBC/100 WBC (test See_Comment [Automat ed code = 0957015739) message] The system which generated this result transmitted reference range : 0.0 - 10.0 /100 WBCs. The refer ence range was not u sed to interpret th is result as normal/abnormal . NRBC x10^3 (test code <0.01 See_Comment [Auto mated = 7889625960) message] The s ystem which generated this result transmitted reference range : 10*3/?L. The reference range was not used to interpret this result as normal/abnormal . GRAN MAT (NEUT) % 59.3 % (test code = 770-8) IMM GRAN % (test code 0.30 % = 9591156954) LYMPH % (test code = 25.0 % 736-9) MONO % (test code = 10.7 % 5905-5) EOS % (test code = 4.1 % 713-8) BASO % (test code = 0.6 % 706-2) GRAN MAT x10^3(ANC) 4.19 10*3/uL 1.99-6.95 (test code = 9349816516) IMM GRAN x10^3 (test <0.03 0.00-0.06 code = 5604159351) LYMPH x10^3 (test code 1.77 10*3/uL 1.09-3.23 = 731-0) MONO x10^3 (test code 0.76 10*3/uL 0.36-1.02 = 742-7) EOS x10^3 (test code = 0.29 10*3/uL 0.06-0.53 711-2) BASO x10^3 (test code 0.04 10*3/uL 0.01-0.09 = 704-7) Lab Interpretation Abnormal (test code = 35884-5) [facility] GLUCOSE (AUTOMATED)2021-11-02 01:29:56 Test Item Value Reference Range Interpretation Comments POCT GLU (test code = 7952009155) 167 mg/dL 70-110 H Lab Interpretation (test code = Abnormal 12037-9) [facility] GLUCOSE (AUTOMATED)2021-11-01 17:40:19 Test Item Value Reference Range Interpretation Comments POCT GLU (test code = 1083237281) 193 mg/dL 70-110 H Lab Interpretation (test code = Abnormal 44881-2) [facility] GLUCOSE (AUTOMATED)2021-11-01 13:44:28 Test Item Value Reference Range Interpretation Comments POCT GLU (test code = 8298224445) 200 mg/dL 70-110 H Lab Interpretation (test code = Abnormal 94282-3) [facility] GLUCOSE (AUTOMATED)2021-11-01 01:38:43 Test Item Value Reference Range Interpretation Comments POCT GLU (test code = 4209460684) 177 mg/dL 70-110 H Lab Interpretation (test code = Abnormal 65335-4) [facility] GLUCOSE (AUTOMATED)2021-10-31 22:39:43 Test Item Value Reference Range Interpretation Comments POCT GLU (test code = 4287731432) 174 mg/dL 70-110 H Lab Interpretation (test code = Abnormal 12992-7) [facility] GLUCOSE (AUTOMATED)2021-10-31 17:40:22 Test Item Value Reference Range Interpretation Comments POCT GLU (test code = 1751432291) 224 mg/dL 70-110 H Lab Interpretation (test code = Abnormal 39313-8) [facility] [id number] 17:14:58 Test Item Value Reference Interpretation Comments Range TROPONIN I (test 0.080 ng/mL See_Comment H [Automated code = 3127238347) message] The system which generated this result [...] biotin. Lab Interpretation Abnormal (test code = 31835-2) [facility]AL [id number] 15:14:03 Test Item Value Reference Range Interpretation Comments NT-proBNP (test code 474 pg/mL See_Comment H [Autom ated = 9902214980) message] The system which generated this result transmitted reference range : <=450. The reference range was not used to interpret this result as normal/abnormal . ALYSSA (test code = ALYSSA) Biotin has been reported to cause a negative bias, interpret results relative to patient's use of biotin. Lab Interpretation Abnormal (test code = 46411-2) [facility] HospitalLIPID PANEL (64865)(TOTAL CHOLESTEROL, TRIGLYCERIDES, HDL)2021-10-31 15:05:19 Test Item Value Reference Range Interpretation Comments CHOL (test code = 101 mg/dL 120-200 L 9560221807) HDL (test code = 36 mg/dL >40 L 7746088687) HDLC RATIO (test code = See_Comment [Au tomated message] 8024160590) The system [employer] generated this result transmit diamante reference range : <=5.0. The refe rence range was not u sed to interpret th is result as normal/abnormal . TRIG (test code = 143 mg/dL 30-170 9817567297) LDL CHOL (test code = 36 mg/dL See_Comment [Auto mated message] 01546-0) The system [employer] generated this result transmit diamante reference range : <=160. The refe rence range was not u sed to interpret th is result as normal/abnormal . VLDL (test code = 29 mg/dL 5-60 5538759111) Lab Interpretation (test Abnormal code = 07055-1) [facility])2021-10-31 13:44:00 Test Item Value Reference Range Interpretation Comments POCT GLU (test code = 9617234691) 150 mg/dL 70-110 H Lab Interpretation (test code = Abnormal 41683-6) [facility] with [id number] 11:13:14 Test Item Value Reference Range Interpretation [...] RDW-SD (test code = 39.9 fL 38.5-51.6 19567-5) RDW-CV (test code = 11.8 % 12.1-15.4 L 788-0) PLT (test code = See_Comment [Automated 777-3) message] The sy stem which generated this result transmitted reference range : 150 - 328 10*3/ ?L. The reference r corey was not used to interpret this result as normal/abnormal . MPV (test code = 11.0 fL 9.8-13.0 08859-0) NRBC/100 WBC (test See_Comment [Automat ed code = 2793479755) message] The system which generated this result transmitted reference range : 0.0 - 10.0 /100 WBCs. The refer ence range was not u sed to interpret th is result as normal/abnormal . NRBC x10^3 (test code <0.01 See_Comment [Auto mated = 9623457171) message] The s [employer] which generated this result transmitted reference range : 10*3/?L. The reference range was not used to interpret this result as normal/abnormal . GRAN MAT (NEUT) % 64.3 % (test code = 770-8) IMM GRAN % (test code 0.30 % = 1185514627) LYMPH % (test code = 21.7 % 736-9) MONO % (test code = 10.0 % 5905-5) EOS % (test code = 3.1 % 713-8) BASO % (test code = 0.6 % 706-2) GRAN MAT x10^3(ANC) 4.35 10*3/uL 1.99-6.95 (test code = 5228196543) IMM GRAN x10^3 (test <0.03 0.00-0.06 code = 3147939616) LYMPH x10^3 (test code 1.47 10*3/uL 1.09-3.23 = 731-0) MONO x10^3 (test code 0.68 10*3/uL 0.36-1.02 = 742-7) EOS x10^3 (test code = 0.21 10*3/uL 0.06-0.53 711-2) BASO x10^3 (test code 0.04 10*3/uL 0.01-0.09 = 704-7) Lab Interpretation Abnormal (test code = 94274-4) [facility] HospitalWENDY [id number] 11:09:53 Test Item Value Reference Interpretation Comments Range TROPONIN I (test 0.101 ng/mL See_Comment H [Automated code = 1899327346) message] The system which generated this result [...] biotin. Lab Interpretation Abnormal (test code = 13382-9) [facility] Metabolic Panel (NA, K, CL, CO2, GLUCOSE, BUN, CREATININE, CA)2021-10-31 10:59:31 Test Item Value Reference Range Interpretation Comments NA (test code = 139 mmol/L 135-145 1309527186) K (test code = 4.1 mmol/L 3.5-5.0 1987594152) CL (test code = 103 mmol/L 98-108 3961205428) CO2 TOTAL (test code = 28 mmol/L 23-31 5920129576) AGAP (test code = 2-16 1704277209) BUN (test code = 43 mg/dL 7-23 H 7632317749) GLUCOSE (test code = 165 mg/dL 70-110 H 1841372164) CREATININE (test code = 1.68 mg/dL 0.60-1.25 H 8900563100) CALCIUM (test code = 9.6 mg/dL 8.6-10.6 2315777856) eGFR (test code = mL/min/1.73m2 5576293491) ALYSSA (test code = ALYSSA) Association of [...] tests). Lab Interpretation Abnormal (test code = 19403-5) [facility] HospitalGlycosylated Hemoglobin (A1C)2021-10-31 09:13:40 Test Item Value Reference Range Interpretation Comments HGB A1C (test code = 6.8 % 4.0-5.7 H 4548-4) ALYSSA (test code = ALYSSA) Reference RangesNormal: <5.7%Prediabetes: 5.7 - 6.4%Diabetes: > 6.5% Lab Interpretation (test Abnormal code = 36913-5) [facility] [id number] 06:48:18 Test Item Value Reference Interpretation Comments Range TROPONIN I (test 0.082 ng/mL See_Comment H [Automated code = 8827495111) message] The system which generated this result [...] biotin. Lab Interpretation Abnormal (test code = 25472-7) [facility] [id number] 02:09:48 Test Item Value Reference Interpretation Comments Range TROPONIN I (test 0.067 ng/mL See_Comment H [Automated code = 3761289361) message] The system which generated this result [...] biotin. Lab Interpretation Abnormal (test code = 22188-2) [facility] Hospital[facility]MINAL [id number] 02:06:31 Test Item Value Reference Range Interpretation Comments NT-proBNP (test code 318 pg/mL See_Comment [Autom ated = 0127431631) message] The system which generated this result transmitted reference range : <=450. The reference range was not used to interpret this result as normal/abnormal . ALYSSA (test code = ALYSSA) Biotin has been reported to cause a negative bias, interpret results relative to patient's use of biotin. Lab Interpretation Normal (test code = 53211-6) [facility]. METABOLIC PANEL (61252)2021-10-31 01:58:28 Test Item Value Reference Range Interpretation Comments NA (test code = 137 mmol/L 135-145 8434478819) K (test code = 4.1 mmol/L 3.5-5.0 2900048224) CL (test code = 101 mmol/L 98-108 2294674623) CO2 TOTAL (test code = 26 mmol/L 23-31 0601825722) AGAP (test code = 2-16 5526166157) BUN (test code = 46 mg/dL 7-23 H 5903932506) GLUCOSE (test code = 213 mg/dL 70-110 H 2893686508) CREATININE (test code = 1.96 mg/dL 0.60-1.25 H 2828100010) TOTAL BILI (test code = 0.9 mg/dL 0.1-1.0 7084782470) CALCIUM (test code = 9.7 mg/dL 8.6-10.6 7007079317) T PROTEIN (test code = 7.0 g/dL 6.3-8.2 6945537577) ALBUMIN (test code = 4.3 g/dL 3.5-5.0 0383158559) ALK PHOS (test code = 58 U/L 34-122 6015705882) ALTv (test code = 20 U/L 5-50 1742-6) AST(SGOT) (test code = 27 U/L 13-40 8160570265) eGFR (test code = mL/min/1.73m2 2910792230) ALYSSA (test code = ALYSSA) Association of [...] tests). Lab Interpretation Abnormal (test code = 34676-4) [facility] HospitalLIPASE, [id number] 01:57:48 Test Item Value Reference Range Interpretation Comments LIPASE (test code = 8628405458) 330 U/L 0-220 H Lab Interpretation (test code = Abnormal 30831-4) [facility] HospitalaPTT2021-12-16 01:55:04 Test Item Value Reference Range Interpretation Comments APTT Patient (test See_Comment [Automat ed code = 3173-2) message] The system which generated this result transmitted reference range : 23 - 38 Seconds . The reference range was not used to interpr et this result as normal/abnormal . ALYSSA (test code = ALYSSA) The [facility] patient population mean normal value for aPTT is 30 seconds. Lab Interpretation Normal (test code = 67909-0) [facility] HospitalPROTHROMBIN TIME / [id number] 01:53:08 Test Item Value Reference Range Interpretation [...] tions. Lab Interpretation (test Normal code = 33888-3) [facility] HospitalCBC WITH [id number] 01:45:44 Test Item Value Reference Range Interpretation Comments WBC (test code = See_Comment [Automated 9590-2) message] The sy stem which generated this result transmitted reference range : 4.20 - 10.70 10*3/?L. The reference range was not used to interpret this result as normal/abnormal . RBC (test code = See_Comment L [Automated 989-8) message] The sy stem which generated this [...] RDW-SD (test code = 39.1 fL 38.5-51.6 51864-2) RDW-CV (test code = 11.6 % 12.1-15.4 L 788-0) PLT (test code = See_Comment [Automated 777-3) message] The sy stem which generated this result transmitted reference range : 150 - 328 10*3/ ?L. The reference r corey was not used to interpret this result as normal/abnormal . MPV (test code = 10.4 fL 9.8-13.0 31800-0) NRBC/100 WBC (test See_Comment [Automat ed code = 0629756222) message] The system which generated this result transmitted reference range : 0.0 - 10.0 /100 WBCs. The refer ence range was not u sed to interpret th is result as normal/abnormal . NRBC x10^3 (test code <0.01 See_Comment [Auto mated = 1807458995) message] The s ystem which generated this result transmitted reference range : 10*3/?L. The reference range was not used to interpret this result as normal/abnormal . GRAN MAT (NEUT) % 62.1 % (test code = 770-8) IMM GRAN % (test code 0.30 % = 8978606585) LYMPH % (test code = 23.4 % 736-9) MONO % (test code = 10.8 % 5905-5) EOS % (test code = 2.9 % 713-8) BASO % (test code = 0.5 % 706-2) GRAN MAT x10^3(ANC) 4.14 10*3/uL 1.99-6.95 (test code = 0776589429) IMM GRAN x10^3 (test <0.03 0.00-0.06 code = 2152559577) LYMPH x10^3 (test code 1.56 10*3/uL 1.09-3.23 = 731-0) MONO x10^3 (test code 0.72 10*3/uL 0.36-1.02 = 742-7) EOS x10^3 (test code = 0.19 10*3/uL 0.06-0.53 711-2) BASO x10^3 (test code 0.03 10*3/uL 0.01-0.09 = 704-7) Lab Interpretation Abnormal (test code = 46648-9) [facility]IS2021-[facility]-10 21:15:48 Test Item Value Reference Range Interpretation Comments APPEARANCE (test code = Clear Clear 7053365778) COLOR (test code = Yellow Yellow 8916785838) PH (test code = 4.8-8.0 1589720100) SP GRAVITY (test code = 1.003-1.030 8799219927) GLU U QUAL (test code = 50 mg/dL Normal A 7530639824) BLOOD (test code = Negative Negative INTERFERE NCE FROM 3623597928) ASCORBIC ACID M AY CAUSE FALSE NEG ATIVE RESULT KETONES (test code = Negative Negative 8643003530) PROTEIN (test code = Negative Negative 2887-8) UROBILIN (test code = Normal Normal 1369471678) BILIRUBIN (test code = Negative Negative 3894806858) NITRITE (test code = Negative Negative 8301243339) LEUK JESS (test code = Negative Negative 2367816572) RBC/HPF (test code = See_Comment [Autom ated message] 0139297618) The system [employer] generated this result transmitted ref erence range: 0 - 3 HP F. The reference range was not used to int erpret this result as normal/abnormal . WBC/HPF (test code = See_Comment [Autom ated message] 3390889217) The system [employer] generated this result transmitted ref erence range: 0 - 5 HP F. The reference range was not used to int erpret this result as normal/abnormal . BACTERIA (test code = Negative Negative 7459080385) SQ EPITH (test code = <1 See_Comment [Auto mated message] 1011663578) The system [employer] generated this result transmitted ref erence range: <=2 HPF. The reference range was not used to int erpret this result as normal/abnormal . HYAL CAST (test code = See_Comment [Aut omated message] 1631270062) The system [employer] generated this result transmitted ref erence range: <=2 LPF. The reference range was not used to int erpret this result as normal/abnormal . Lab Interpretation (test Abnormal code = 08466-8) [facility] HospitalXR LUMBAR SPINE 2 [id number] 20:30:53 Impression: Postoperative changes. Degenerative changes. No [...] acute bony abnormality identified.End of Report.RL: [facility] VW [id number] 20:24:52Impression: Postoperative changes. Degenerative changes. No acute [...] clinicalconcern MRI is available.End of Report.RL: [facility] (NA, K, CL, CO2, GLUCOSE, BUN, CREATININE, CA)2020-05-24 14:15:00 Test Item Value Reference Range Interpretation Comments NA (test code = 139 mmol/L 135-145 0291292335) K (test code = 4.1 mmol/L 3.5-5 1071800756) CL (test code = 104 mmol/L 98-108 4579624822) CO2 TOTAL (test code = 26 mmol/L 23-31 3537821591) AGAP (test code = 2-16 4835180231) BUN (test code = 22 mg/dL 7-23 4908800999) GLUCOSE (test code = 203 mg/dL 70-110 H 3578422440) CREATININE (test code = 1.40 mg/dL 0.6-1.25 H 9841899416) CALCIUM (test code = 9.1 mg/dL 8.6-10.6 9024834785) eGFR Calculation mL/min/1.73m2 (Non-) (test code = 1418393701) eGFR Calculation mL/min/1.73m2 () (test code = 8353208537) ALYSSA (test code = ALYSSA) Association of [...] tests). Lab Interpretation Abnormal (test code = 15680-5) [facility] HospitalHepatic Function Panel (ALB, T.PRO, BILI T, BU/BC, ALT, AST, ALK PHOS)2020-05-24 13:54:00 Test Item Value Reference Range Interpretation Comments TOTAL BILI (test code = 1718525297) 0.9 mg/dL 0.1-1.1 BILI UNCON (test code = 2350098095) 1.0 mg/dL 0.1-1.1 BILI CONJ (test code = 1038234560) 0.0 mg/dL 0-0.3 T PROTEIN (test code = 2662293997) 7.0 g/dL 6.3-8.2 ALBUMIN (test code = 6218931365) 4.2 g/dL 3.5-5 ALK PHOS (test code = 7231044227) 49 U/L 34-122 ALTv (test code = 1742-6) 17 U/L 5-50 AST(SGOT) (test code = 3593177486) 25 U/L 13-40 Lab Interpretation (test code = Normal 64833-0) [facility] HospitalaPTT2020-07-09 13:32:00 Test Item Value Reference Range Interpretation Comments APTT Patient (test See_Comment [Automat ed code = 3173-2) message] The system which generated this result transmitted reference range : 23 - 38 Seconds . The reference range was not used to interpr et this result as normal/abnormal . ALYSSA (test code = ALYSSA) The [facility] patient population mean normal value for aPTT is 30 seconds. Lab Interpretation Normal (test code = 65621-2) [facility] HospitalProthrombin Time (PT) / [id number] 13:30:00 Test Item Value Reference Range Interpretation [...] tions. Lab Interpretation (test Normal code = 06714-4) [facility] HospitalCBC WITH [id number] 13:27:00 Test Item Value Reference Range Interpretation [...] RDW-SD (test code = 42.6 fL 38.5-51.6 27485-0) RDW-CV (test code = 12.3 % 12.1-15.4 788-0) PLT (test code = See_Comment [Automated 777-3) message] The sy stem which generated this result transmitted reference range : 150 - 328 10*3/ ?L. The reference r corey was not used to interpret this result as normal/abnormal . MPV (test code = 9.9 fL 9.8-13 88051-3) NRBC/100 WBC (test See_Comment [Automat ed code = 9254722701) message] The system which generated this result transmitted reference range : 0.0 - 10.0 /100 WBCs. The refer ence range was not u sed to interpret th is result as normal/abnormal . NRBC x10^3 (test code <0.01 See_Comment [Auto mated = [id number]) message] The s ystem which generated this result transmitted reference range : 10*3/?L. The reference range was not used to interpret this result as normal/abnormal . GRAN MAT (NEUT) % 55.1 % (test code = 770-8) IMM GRAN % (test code 0.20 % = 5810308787) LYMPH % (test code = 28.8 % 736-9) MONO % (test code = 11.3 % 5905-5) EOS % (test code = 3.5 % 713-8) BASO % (test code = 1.1 % 706-2) GRAN MAT x10^3(ANC) 3.11 10*3/uL 1.99-6.95 (test code = 1562356498) IMM GRAN x10^3 (test <0.03 0-0.06 code = 8941670351) LYMPH x10^3 (test code 1.63 10*3/uL 1.09-3.23 = 731-0) MONO x10^3 (test code 0.64 10*3/uL 0.36-1.02 = 742-7) EOS x10^3 (test code = 0.20 10*3/uL 0.06-0.53 711-2) BASO x10^3 (test code 0.06 10*3/uL 0.01-0.09 = 704-7) Lab Interpretation Abnormal (test code = 53697-2) [facility] [id number] 13:25:58HISTORY: ?Pain. FINDINGS: AP, lateral, oblique views [...] No acute fracture or dislocation in left ankle.[facility]2020-03-23 22:34:00 Test Item Value Reference Range Interpretation Comments POCT GLU (test code = 3272071726) 173 mg/dL 70-110 H Lab Interpretation (test code = Abnormal 02141-3) [facility] GLUCOSE (AUTOMATED)2020-03-23 22:34:00 Test Item Value Reference Range Interpretation Comments POCT GLU (test code = 1718657999) 173 mg/dL 70-110 H Lab Interpretation (test code = Abnormal 22136-5) [facility] GLUCOSE (AUTOMATED)2020-03-23 18:12:00 Test Item Value Reference Range Interpretation Comments POCT GLU (test code = 165 mg/dL 70-110 H Notifi ed Provider [id number]) Lab Interpretation (test Abnormal code = 37688-2) [facility] GLUCOSE (AUTOMATED)2020-03-23 18:12:00 Test Item Value Reference Range Interpretation Comments POCT GLU (test code = 165 mg/dL 70-110 H Notifi ed Provider [id number]) Lab Interpretation (test Abnormal code = 30303-0) [facility] GLUCOSE (AUTOMATED)2020-03-23 15:04:00 Test Item Value Reference Range Interpretation Comments POCT GLU (test code = 114 mg/dL 70-110 H Notifi ed Provider [id number]) Lab Interpretation (test Abnormal code = 04815-8) [facility] GLUCOSE (AUTOMATED)2020-03-23 15:04:00 Test Item Value Reference Range Interpretation Comments POCT GLU (test code = 114 mg/dL 70-110 H Notifi ed Provider [id number]) Lab Interpretation (test Abnormal code = 95158-7) [facility] [id number] 13:23:00 Test Item Value Reference Range Interpretation Comments FERRITIN (test code = 139.0 ng/mL 18-464 4938930121) ALYSSA (test code = ALYSSA) Biotin has been reported to cause a negative bias, interpret results relative to patient's use of biotin. Lab Interpretation (test Normal code = 54158-3) [facility] [id number] 13:23:00 Test Item Value Reference Range Interpretation Comments FERRITIN (test code = 139.0 ng/mL 18-464 0103530050) ALYSSA (test code = ALYSSA) Biotin has been reported to cause a negative bias, interpret results relative to patient's use of biotin. Lab Interpretation (test Normal code = 37906-9) [facility] [id number] 12:53:00 Test Item Value Reference Range Interpretation Comments IRON (test code = 3454373701) 87 ug/dL 50-160 TIBC (test code = 9045097817) 385 ug/dL 250-410 % FE SAT (test code = 7293701764) 23 % 20-50 Lab Interpretation (test code = Normal 69263-9) [facility] [id number] 12:53:00 Test Item Value Reference Range Interpretation Comments IRON (test code = 3941597428) 87 ug/dL 50-160 TIBC (test code = 1510511458) 385 ug/dL 250-410 % FE SAT (test code = 5093279775) 23 % 20-50 Lab Interpretation (test code = Normal 74037-1) [place] [id number] 12:07:00 Test Item Value Reference Range Interpretation Comments APTT Patient (test code See_Comment [Au tomated message] = 3173-2) The system [employer] generated this result transmitted ref erence range: 26 - 36 Seconds. The reference range was not used to int erpret this result as normal/abnormal . Lab Interpretation (test Abnormal code = 65417-0) [facility] Test Item Value Reference Range Interpretation Comments APTT Patient (test code See_Comment [Au tomated message] = 3173-2) The system [employer] generated this result transmitted ref erence range: 26 - 36 Seconds. The reference range was not used to int erpret this result as normal/abnormal . Lab Interpretation (test Abnormal code = 46237-8) [facility] [id number] 11:57:00 Test Item Value Reference Range Interpretation Comments TROPONIN I (test 0.046 ng/mL See_Comment H [Automated code = 2614914221) message] The system which generated this result [...] ? Lab Interpretation Abnormal (test code = 60363-2) [facility]KATE[facility] [id number] 11:57:00 Test Item Value Reference Range Interpretation Comments TROPONIN I (test 0.046 ng/mL See_Comment H [Automated code = 2400680719) message] The system which generated this result [...] ? Lab Interpretation Abnormal (test code = 46796-2) [facility] (NA, K, CL, CO2, GLUCOSE, BUN, CREATININE, CA)2020-03-23 11:52:00 Test Item Value Reference Range Interpretation Comments NA (test code = 137 mmol/L 135-145 7694051103) K (test code = 4.1 mmol/L 3.5-5 5256140854) CL (test code = 102 mmol/L 98-108 3113320555) CO2 TOTAL (test code = 26 mmol/L 23-31 2391281563) AGAP (test code = 2-16 5103419134) BUN (test code = 18 mg/dL 7-23 2377058327) GLUCOSE (test code = 119 mg/dL 70-110 H 5804942955) CREATININE (test code = 1.14 mg/dL 0.6-1.25 9719109238) CALCIUM (test code = 9.1 mg/dL 8.6-10.6 7259191070) eGFR Calculation mL/min/1.73m2 (Non-) (test code = 7480720046) eGFR Calculation mL/min/1.73m2 () (test code = 2465686408) ALYSSA (test code = ALYSSA) Association of [...] tests). Lab Interpretation Abnormal (test code = 95586-2) [facility] 11:52:00 Test Item Value Reference Range Interpretation Comments MAGNESIUM (test code = 5002217757) 2.2 mg/dL 1.7-2.4 Lab Interpretation (test code = Normal 91384-8) [facility] METABOLIC PANEL (NA, K, CL, CO2, GLUCOSE, BUN, CREATININE, CA)2020-03-23 11:52:00 Test Item Value Reference Range Interpretation Comments NA (test code = 137 mmol/L 135-145 4266946221) K (test code = 4.1 mmol/L 3.5-5 5428378041) CL (test code = 102 mmol/L 98-108 9327813886) CO2 TOTAL (test code = 26 mmol/L 23-31 4329744966) AGAP (test code = 2-16 7301133828) BUN (test code = 18 mg/dL 7-23 0575196637) GLUCOSE (test code = 119 mg/dL 70-110 H 7563814246) CREATININE (test code = 1.14 mg/dL 0.6-1.25 1713588300) CALCIUM (test code = 9.1 mg/dL 8.6-10.6 1135279895) eGFR Calculation mL/min/1.73m2 (Non-) (test code = 9415327595) eGFR Calculation mL/min/1.73m2 () (test code = 0304692395) ALYSSA (test code = ALYSSA) Association of [...] tests). Lab Interpretation Abnormal (test code = 77417-2) [facility] 11:52:00 Test Item Value Reference Range Interpretation Comments MAGNESIUM (test code = 9209108954) 2.2 mg/dL 1.7-2.4 Lab Interpretation (test code = Normal 51391-5) [facility]Proth[facility] (PT) / [id number] 11:36:00 Test Item Value Reference Range Interpretation Comments PROTIME PATIENT (test See_Comment [Auto mated message] code = 5964-2) The system [employer] generated this result transmitted ref erence range: 10.1 - 1 2.6 Seconds. The re ference range was not u sed to interpret this result as normal/abnor mal. INR (test code = 6301-6) Nor mal INR <1.1; Warfarin Therap eutic range 2.0 to 3. 0 or 2.5 to 3.5, dep ending upon the indica tions. Lab Interpretation (test Normal code = 60649-9) [facility] (PT) / [id number] 11:36:00 Test Item Value Reference Range Interpretation [...] tions. Lab Interpretation (test Normal code = 90912-7) [facility] [id number] 06:38:00 Test Item Value Reference Range Interpretation Comments TROPONIN I (test 0.045 ng/mL See_Comment H [Automated code = 1154776249) message] The system which generated this result [...] ? Lab Interpretation Abnormal (test code = 24644-8) [facility] [id number] 06:38:00 Test Item Value Reference Range Interpretation Comments TROPONIN I (test 0.045 ng/mL See_Comment H [Automated code = 3211178444) message] The system which generated this result [...] ? Lab Interpretation Abnormal (test code = 91863-5) [facility] (NA, K, CL, CO2, GLUCOSE, BUN, CREATININE, CA)2020-03-23 06:29:00 Test Item Value Reference Range Interpretation Comments NA (test code = 137 mmol/L 135-145 8431538351) K (test code = 3.6 mmol/L 3.5-5 2887053624) CL (test code = 101 mmol/L 98-108 1598170289) CO2 TOTAL (test code = 27 mmol/L 23-31 1347994958) AGAP (test code = 2-16 6075569948) BUN (test code = 19 mg/dL 7-23 4919395216) GLUCOSE (test code = 153 mg/dL 70-110 H 2781382743) CREATININE (test code = 1.22 mg/dL 0.6-1.25 1433370480) CALCIUM (test code = 8.9 mg/dL 8.6-10.6 1247256002) eGFR Calculation mL/min/1.73m2 (Non-) (test code = 6546114557) eGFR Calculation mL/min/1.73m2 () (test code = 2519482853) ALYSSA (test code = ALYSSA) Association of [...] tests). Lab Interpretation Abnormal (test code = 54435-3) [facility] 06:29:00 Test Item Value Reference Range Interpretation Comments MAGNESIUM (test code = 7659322102) 1.7 mg/dL 1.7-2.4 Lab Interpretation (test code = Normal 21670-8) [facility] HospitalLIPID PANEL (17577)(TOTAL CHOLESTEROL, TRIGLYCERIDES, HDL)2020-03-23 06:29:00 Test Item Value Reference Range Interpretation Comments CHOL (test code = 106 mg/dL 120-200 L 5042152899) HDL (test code = 46 mg/dL >40 1052467086) HDLC RATIO (test code = See_Comment [Au tomated message] 9604275003) The system [employer] generated this result transmit diamante reference range : <=5.0. The refe rence range was not u sed to interpret th is result as normal/abnormal . TRIG (test code = 74 mg/dL 30-170 1322122638) LDL CHOL (test code = 45 mg/dL See_Comment [Auto mated message] 31099-6) The system [employer] generated this result transmit diamante reference range : <=160. The refe rence range was not u sed to interpret th is result as normal/abnormal . VLDL (test code = 15 mg/dL 5-60 2334455937) Lab Interpretation (test Abnormal code = 71005-1) [facility] METABOLIC PANEL (NA, K, CL, CO2, GLUCOSE, BUN, CREATININE, CA)2020-03-23 06:29:00 Test Item Value Reference Range Interpretation Comments NA (test code = 137 mmol/L 135-145 7218537561) K (test code = 3.6 mmol/L 3.5-5 7414229090) CL (test code = 101 mmol/L 98-108 0554991790) CO2 TOTAL (test code = 27 mmol/L 23-31 2243150008) AGAP (test code = 2-16 8772787776) BUN (test code = 19 mg/dL 7-23 6172042640) GLUCOSE (test code = 153 mg/dL 70-110 H 8603218076) CREATININE (test code = 1.22 mg/dL 0.6-1.25 9038251544) CALCIUM (test code = 8.9 mg/dL 8.6-10.6 5903254176) eGFR Calculation mL/min/1.73m2 (Non-) (test code = 5849674443) eGFR Calculation mL/min/1.73m2 () (test code = 9456231885) ALYSSA (test code = ALYSSA) Association of [...] tests). Lab Interpretation Abnormal (test code = 45430-6) [facility] 06:29:00 Test Item Value Reference Range Interpretation Comments MAGNESIUM (test code = 7136525162) 1.7 mg/dL 1.7-2.4 Lab Interpretation (test code = Normal 29140-2) [facility] HospitalLIP[facility]EL (04951)(TOTAL CHOLESTEROL, TRIGLYCERIDES, HDL)2020-03-23 06:29:00 Test Item Value Reference Range Interpretation Comments CHOL (test code = 106 mg/dL 120-200 L 5961864418) HDL (test code = 46 mg/dL >40 6393650634) HDLC RATIO (test code = See_Comment [Au tomated message] 6143692020) The system [employer] generated this result transmit diamante reference range : <=5.0. The refe rence range was not u sed to interpret th is result as normal/abnormal . TRIG (test code = 74 mg/dL 30-170 0908394166) LDL CHOL (test code = 45 mg/dL See_Comment [Auto mated message] 93000-9) The system [employer] generated this result transmit diamante reference range : <=160. The refe rence range was not u sed to interpret th is result as normal/abnormal . VLDL (test code = 15 mg/dL 5-60 8143103779) Lab Interpretation (test Abnormal code = 84579-1) [facility] 03:18:00 Test Item Value Reference Range Interpretation Comments APTT Patient (test code = See_Comment [ Automated message] 3173-2) The system [employer] generated this result transmitted ref erence range: 26 - 36 Seconds. The re ference range was not u sed to interpret this result as normal/abnor mal. Lab Interpretation (test Normal code = 98974-2) [facility]00 Test Item Value Reference Range Interpretation Comments APTT Patient (test code = See_Comment [ Automated message] 3173-2) The system [employer] generated this result transmitted ref erence range: 26 - 36 Seconds. The re ference range was not u sed to interpret this result as normal/abnor mal. Lab Interpretation (test Normal code = 65765-9) [facility] HospitalPROTHROMBIN TIME / [id number] 03:07:00 Test Item Value Reference Range Interpretation Comments PROTIME PATIENT (test See_Comment [Auto mated message] code = 5964-2) The system [employer] generated this result transmitted ref erence range: 10.1 - 1 2.6 Seconds. The re ference range was not u sed to interpret this result as normal/abnor mal. INR (test code = 6301-6) Nor mal INR <1.1; Warfarin Therap eutic range 2.0 to 3. 0 or 2.5 to 3.5, dep ending upon the indica tions. Lab Interpretation (test Normal code = 32159-7) [facility] HospitalPROTHROMBIN TIME / [id number] 03:07:00 Test Item Value Reference Range Interpretation Comments PROTIME PATIENT (test See_Comment [Auto mated message] code = 5964-2) The system [employer] generated this result transmitted ref erence range: 10.1 - 1 2.6 Seconds. The re ference range was not u sed to interpret this result as normal/abnor mal. INR (test code = 6301-6) Nor mal INR <1.1; Warfarin Therap eutic range 2.0 to 3. 0 or 2.5 to 3.5, dep ending upon the indica tions. Lab Interpretation (test Normal code = 70269-1) [facility] 2 [id number] 02:23:32 No acute cardiopulmonary process. Preliminary Report [...] reviewed this study and agree with the abovereport.[facility] 2 [id number] 02:23:32 No acute cardiopulmonary process. Preliminary Report [...] reviewed this study and agree with the abovereport.[facility] Branch[facility] COVID-19 [id number] 01:23:00 Test Item Value Reference Range Interpretation Comments SARS-CoV-2 (test code = Not Detected Not Detected 53871-7) ALYSSA (test code = ALYSSA) ID NOW COVID-19 Assay is an isothermal nucleic acid amplification test intended for the qualitative detection of nucleic acid from SARS-CoV-2 viral RNA in nasopharyngeal (SCREEN PR[employer]ING EQUIPMENT SETTER) specimens. It is used under Emergency Use [...] indicated. Lab Interpretation Normal (test code = 12657-3) [facility] [id number] 01:23:00 Test Item Value Reference Range Interpretation Comments SARS-CoV-2 (test code = Not Detected Not Detected 59450-0) ALYSSA (test code = ALYSSA) ID NOW COVID-19 Assay is an isothermal nucleic acid amplification test intended for the qualitative detection of nucleic acid from SARS-CoV-2 viral RNA in nasopharyngeal (SCREEN PR[employer]ING EQUIPMENT SETTER) specimens. It is used under Emergency Use [...] indicated. Lab Interpretation Normal (test code = 53648-9) [facility]MINAL [id number] 00:12:00 Test Item Value Reference Range Interpretation Comments NT-proBNP (test code 585 pg/mL See_Comment H [Autom ated = 8409334689) message] The system which generated this result transmitted reference range : <=450. The reference range was not used to interpret this result as normal/abnormal . ALYSSA (test code = ALYSSA) Biotin has been reported to cause a negative bias, interpret results relative to patient's use of biotin. Lab Interpretation Abnormal (test code = 58731-3) [facility] HospitalTR[facility]IN [id number] 00:12:00 Test Item Value Reference Range Interpretation Comments TROPONIN I (test 0.030 ng/mL See_Comment [Automated code = 5978023368) message] The system which generated this result [...] ? Lab Interpretation Normal (test code = 92278-7) [facility] [id number] 00:12:00 Test Item Value Reference Range Interpretation Comments NT-proBNP (test code 585 pg/mL See_Comment H [Autom ated = 5780213589) message] The system which generated this result transmitted reference range : <=450. The reference range was not used to interpret this result as normal/abnormal . ALYSSA (test code = ALYSSA) Biotin has been reported to cause a negative bias, interpret results relative to patient's use of biotin. Lab Interpretation Abnormal (test code = 31142-7) [facility] [id number] 00:12:00 Test Item Value Reference Range Interpretation Comments TROPONIN I (test 0.030 ng/mL See_Comment [Automated code = 1358443473) message] The system which generated this result [...] ? Lab Interpretation Normal (test code = 00149-7) [facility]. METABOLIC PANEL (11455)2020-03-23 00:03:00 Test Item Value Reference Range Interpretation Comments NA (test code = 138 mmol/L 135-145 5560535206) K (test code = 4.1 mmol/L 3.5-5 3748737496) CL (test code = 103 mmol/L 98-108 7253571390) CO2 TOTAL (test code = 26 mmol/L 23-31 7708673334) AGAP (test code = 2-16 3067227994) BUN (test code = 18 mg/dL 7-23 9279188265) GLUCOSE (test code = 157 mg/dL 70-110 H 1638744077) CREATININE (test code = 1.19 mg/dL 0.6-1.25 0457268574) TOTAL BILI (test code = 1.1 mg/dL 0.1-1.8 2012463972) CALCIUM (test code = 9.2 mg/dL 8.6-10.6 9558989262) T PROTEIN (test code = 6.8 g/dL 6.3-8.2 6273090862) ALBUMIN (test code = 4.0 g/dL 3.5-5 2152308443) ALK PHOS (test code = 51 U/L 34-122 4643591885) ALTv (test code = 16 U/L 5-50 1742-6) AST(SGOT) (test code = 23 U/L 13-40 4269313665) eGFR Calculation mL/min/1.73m2 (Non-) (test code = 7052637649) eGFR Calculation mL/min/1.73m2 () (test code = 3490008055) ALYSSA (test code = ALYSSA) Association of [...] tests). Lab Interpretation Abnormal (test code = 51505-6) [facility]. METABOLIC PANEL (03761)2020-03-23 00:03:00 Test Item Value Reference Range Interpretation Comments NA (test code = 138 mmol/L 135-145 9602073934) K (test code = 4.1 mmol/L 3.5-5 4323906665) CL (test code = 103 mmol/L 98-108 2729934472) CO2 TOTAL (test code = 26 mmol/L 23-31 2259918312) AGAP (test code = 2-16 4730466473) BUN (test code = 18 mg/dL 7-23 8085095169) GLUCOSE (test code = 157 mg/dL 70-110 H 5413605185) CREATININE (test code = 1.19 mg/dL 0.6-1.25 6702465171) TOTAL BILI (test code = 1.1 mg/dL 0.1-1.6 3396789321) CALCIUM (test code = 9.2 mg/dL 8.6-10.6 2783026966) T PROTEIN (test code = 6.8 g/dL 6.3-8.2 9410142512) ALBUMIN (test code = 4.0 g/dL 3.5-5 3116847416) ALK PHOS (test code = 51 U/L 34-122 7300730134) ALTv (test code = 16 U/L 5-50 1742-6) AST(SGOT) (test code = 23 U/L 13-40 9597691097) eGFR Calculation mL/min/1.73m2 (Non-) (test code = 6604382590) eGFR Calculation mL/min/1.73m2 () (test code = 1546481585) ALYSSA (test code = ALYSSA) Association of [...] tests). Lab Interpretation Abnormal (test code = 77144-6) [facility] WITH [id number] 23:57:00 Test Item Value Reference Range Interpretation Comments WBC (test code = See_Comment [Automated 7037-2) message] The sy stem which generated this result transmitted reference range : 4.20 - 10.70 10*3/?L. The reference range was not used to interpret this result as normal/abnormal . RBC (test code = See_Comment L [Automated 036-8) message] The sy stem which generated this [...] RDW-SD (test code = 49.6 fL 38.5-51.6 09526-8) RDW-CV (test code = 14.6 % 12.1-15.4 788-0) PLT (test code = See_Comment L [Automated 777-3) message] The sy stem which generated this result transmitted reference range : 150 - 328 10*3/ ?L. The reference r corey was not used to interpret this result as normal/abnormal . MPV (test code = 9.9 fL 9.8-13 13604-0) NRBC/100 WBC (test See_Comment [Automat ed code = 3987628166) message] The system which generated this result transmitted reference range : 0.0 - 10.0 /100 WBCs. The refer ence range was not u sed to interpret th is result as normal/abnormal . NRBC x10^3 (test code <0.01 See_Comment [Auto mated = 3398658681) message] The s ystem which generated this result transmitted reference range : 10*3/?L. The reference range was not used to interpret this result as normal/abnormal . GRAN MAT (NEUT) % 55.3 % (test code = 770-8) IMM GRAN % (test code 0.20 % = 1142788104) LYMPH % (test code = 28.3 % 736-9) MONO % (test code = 12.6 % 5905-5) EOS % (test code = 3.1 % 713-8) BASO % (test code = 0.5 % 706-2) GRAN MAT x10^3(ANC) 3.20 10*3/uL 1.99-6.95 (test code = 9136241468) IMM GRAN x10^3 (test <0.03 0-0.06 code = 2397212033) LYMPH x10^3 (test code 1.64 10*3/uL 1.09-3.23 = 731-0) MONO x10^3 (test code 0.73 10*3/uL 0.36-1.02 = 742-7) EOS x10^3 (test code = 0.18 10*3/uL 0.06-0.53 711-2) BASO x10^3 (test code 0.03 10*3/uL 0.01-0.09 = 704-7) Lab Interpretation Abnormal (test code = 09197-8) [facility] WITH [id number] 23:57:00 Test Item Value Reference Range Interpretation [...] RDW-SD (test code = 49.6 fL 38.5-51.6 82526-0) RDW-CV (test code = 14.6 % 12.1-15.4 788-0) PLT (test code = See_Comment L [Automated 777-3) message] The sy stem which generated this result transmitted reference range : 150 - 328 10*3/ ?L. The reference r corey was not used to interpret this result as normal/abnormal . MPV (test code = 9.9 fL 9.8-13 49545-5) NRBC/100 WBC (test See_Comment [Automat ed code = 8232513292) message] The system which generated this result transmitted reference range : 0.0 - 10.0 /100 WBCs. The refer ence range was not u sed to interpret th is result as normal/abnormal . NRBC x10^3 (test code <0.01 See_Comment [Auto mated = 7789376467) message] The s ystem which generated this result transmitted reference range : 10*3/?L. The reference range was not used to interpret this result as normal/abnormal . GRAN MAT (NEUT) % 55.3 % (test code = 770-8) IMM GRAN % (test code 0.20 % = 3941544946) LYMPH % (test code = 28.3 % 736-9) MONO % (test code = 12.6 % 5905-5) EOS % (test code = 3.1 % 713-8) BASO % (test code = 0.5 % 706-2) GRAN MAT x10^3(ANC) 3.20 10*3/uL 1.99-6.95 (test code = 5238148323) IMM GRAN x10^3 (test <0.03 0-0.06 code = 4343229973) LYMPH x10^3 (test code 1.64 10*3/uL 1.09-3.23 = 731-0) MONO x10^3 (test code 0.73 10*3/uL 0.36-1.02 = 742-7) EOS x10^3 (test code = 0.18 10*3/uL 0.06-0.53 711-2) BASO x10^3 (test code 0.03 10*3/uL 0.01-0.09 = 704-7) Lab Interpretation Abnormal (test code = 99893-3) [facility] [id number] 21:48:00 Test Item Value Reference Range Interpretation Comments SARS-CoV-2 (test code = Not Detected Not Detected 19337-0) ALYSSA (test code = ALYSSA) ID NOW COVID-19 Assay is an isothermal nucleic acid amplification test intended for the qualitative detection of nucleic acid from SARS-CoV-2 viral RNA in nasopharyngeal (SCREEN PR[employer]ING EQUIPMENT SETTER) specimens. It is used under Emergency Use [...] indicated. Lab Interpretation Normal (test code = 12231-4) [facility] HospitalTrop[facility] [id number] 21:44:00 Test Item Value Reference Range Interpretation Comments TROPONIN I (test 0.027 ng/mL See_Comment [Automated code = 3888899080) message] The system which generated this result [...] ? Lab Interpretation Normal (test code = 20025-9) [facility] (PT) / [id number] 21:41:00 Test Item Value Reference Range Interpretation [...] tions. Lab Interpretation (test Normal code = 56032-7) [facility] [id number] 21:39:00 Test Item Value Reference Range Interpretation Comments NT-proBNP (test code 663 pg/mL See_Comment H [Autom ated = 8745146566) message] The system which generated this result transmitted reference range : <=450. The reference range was not used to interpret this result as normal/abnormal . ALYSSA (test code = ALYSSA) Biotin has been reported to cause a negative bias, interpret results relative to patient's use of biotin. Lab Interpretation Abnormal (test code = 10816-7) [facility] (34392)2020-03-21 21:37:00 Test Item Value Reference Range Interpretation Comments NA (test code = 139 mmol/L 135-145 2052562401) K (test code = 4.1 mmol/L 3.5-5 0550377378) CL (test code = 102 mmol/L 98-108 2614426255) CO2 TOTAL (test code = 29 mmol/L 23-31 5487964510) AGAP (test code = 2-16 1477060491) BUN (test code = 18 mg/dL 7-23 1122663243) GLUCOSE (test code = 277 mg/dL 70-110 H 3767537006) CREATININE (test code = 1.23 mg/dL 0.6-1.25 5730027688) TOTAL BILI (test code = 1.3 mg/dL 0.1-1.1 H 4606392658) CALCIUM (test code = 9.8 mg/dL 8.6-10.6 1920770793) T PROTEIN (test code = 7.0 g/dL 6.3-8.2 0667410847) ALBUMIN (test code = 4.2 g/dL 3.5-5 6976156138) ALK PHOS (test code = 50 U/L 34-122 8832265102) ALTv (test code = 15 U/L 5-50 1742-6) AST(SGOT) (test code = 22 U/L 13-40 0625419606) eGFR Calculation mL/min/1.73m2 (Non-) (test code = 8769404153) eGFR Calculation mL/min/1.73m2 () (test code = 6322091042) ALYSSA (test code = ALYSSA) Association of [...] tests). Lab Interpretation Abnormal (test code = 37985-2) [facility] HospitalLip[facility] [id number] 21:37:00 Test Item Value Reference Range Interpretation Comments LIPASE (test code = 4828300370) 161 U/L 0-220 Lab Interpretation (test code = Normal 71332-6) [facility] 1 [id number] 20:46:31HISTORY: Chest pain. TECHNIQUE: Portable AP view [...] noted. Mild thoracolumbar scoliosis noted.CONCLUSIONS: Mild cardiomegaly. [facility] HospitalLaaric Acid Whole [id number] 20:43:00 Test Item Value Reference Range Interpretation Comments LACTIC ACID (test code = 1.91 mmol/L 0.3-2.6 1929135917) [facility] GLUCOSE (AUTOMATED)2020-03-07 20:58:00 Test Item Value Reference Range Interpretation Comments POCT GLU (test code = 2444595307) 216 mg/dL 70-110 H Lab Interpretation (test code = Abnormal 85003-4) [facility] GLUCOSE (AUTOMATED)2020-03-07 16:00:00 Test Item Value Reference Range Interpretation Comments POCT GLU (test code = 0588801829) 168 mg/dL 70-110 H Lab Interpretation (test code = Abnormal 25822-2) [facility] GLUCOSE (AUTOMATED)2020-03-07 13:07:00 Test Item Value Reference Range Interpretation Comments POCT GLU (test code = 9099791161) 148 mg/dL 70-110 H Lab Interpretation (test code = Abnormal 31102-6) [facility]TR[facility] [id number] 11:27:00 Test Item Value Reference Range Interpretation Comments TROPONIN I (test 0.051 ng/mL See_Comment H [Automated code = 8295006856) message] The system which generated this result [...] ? Lab Interpretation Abnormal (test code = 94422-8) [facility] HospitalN[facility]MINAL [id number] 11:24:00 Test Item Value Reference Range Interpretation Comments NT-proBNP (test code 336 pg/mL See_Comment [Autom ated = 6358542914) message] The system which generated this result transmitted reference range : <=450. The reference range was not used to interpret this result as normal/abnormal . ALYSSA (test code = ALYSSA) Biotin has been reported to cause a negative bias, interpret results relative to patient's use of biotin. Lab Interpretation Normal (test code = 28037-0) [facility] HospitalBasi Metabolic Panel (NA, K, CL, CO2, GLUCOSE, BUN, CREATININE, CA)2020-03-07 11:14:00 Test Item Value Reference Range Interpretation Comments NA (test code = 138 mmol/L 135-145 9151634471) K (test code = 3.8 mmol/L 3.5-5 5422830554) CL (test code = 97 mmol/L 98-108 L 7337651305) CO2 TOTAL (test code = 30 mmol/L 23-31 1157713662) AGAP (test code = 2-16 1523060309) BUN (test code = 36 mg/dL 7-23 H 8594423537) GLUCOSE (test code = 140 mg/dL 70-110 H 5214882002) CREATININE (test code = 1.50 mg/dL 0.6-1.25 H 5530968026) CALCIUM (test code = 10.0 mg/dL 8.6-10.6 3744789697) eGFR Calculation mL/min/1.73m2 (Non-) (test code = 5241882390) eGFR Calculation mL/min/1.73m2 () (test code = 3434976796) ALYSSA (test code = ALYSSA) Association of [...] tests). Lab Interpretation Abnormal (test code = 19041-4) [facility] [id number] 11:14:00 Test Item Value Reference Range Interpretation Comments URIC ACID (test code = 2021211478) 5.4 mg/dL 3.6-8 Lab Interpretation (test code = Normal 47170-4) [facility] WITH [id number] 10:53:00 Test Item Value Reference Range Interpretation [...] RDW-SD (test code = 45.1 fL 38.5-51.6 93588-7) RDW-CV (test code = 14.2 % 12.1-15.4 788-0) PLT (test code = See_Comment [Automated 777-3) message] The sy stem which generated this result transmitted reference range : 150 - 328 10*3/ ?L. The reference r corey was not used to interpret this result as normal/abnormal . MPV (test code = 9.8 fL 9.8-13 04947-3) NRBC/100 WBC (test See_Comment [Automat ed code = 2793269873) message] The system which generated this result transmitted reference range : 0.0 - 10.0 /100 WBCs. The refer ence range was not u sed to interpret th is result as normal/abnormal . NRBC x10^3 (test code <0.01 See_Comment [Auto mated = 3472671246) message] The s ystem which generated this result transmitted reference range : 10*3/?L. The reference range was not used to interpret this result as normal/abnormal . GRAN MAT (NEUT) % 51.0 % (test code = 770-8) IMM GRAN % (test code 0.50 % = 6781047448) LYMPH % (test code = 32.0 % 736-9) MONO % (test code = 11.3 % 5905-5) EOS % (test code = 4.3 % 713-8) BASO % (test code = 0.9 % 706-2) GRAN MAT x10^3(ANC) 2.85 10*3/uL 1.99-6.95 (test code = 2198231497) IMM GRAN x10^3 (test 0.03 10*3/uL 0-0.06 code = 5502393545) LYMPH x10^3 (test code 1.79 10*3/uL 1.09-3.23 = 731-0) MONO x10^3 (test code 0.63 10*3/uL 0.36-1.02 = 742-7) EOS x10^3 (test code = 0.24 10*3/uL 0.06-0.53 711-2) BASO x10^3 (test code 0.05 10*3/uL 0.01-0.09 = 704-7) Lab Interpretation Abnormal (test code = 14163-2) [facility] GLUCOSE (AUTOMATED)2020-03-06 22:46:00 Test Item Value Reference Range Interpretation Comments POCT GLU (test code = 1767048101) 209 mg/dL 70-110 H Lab Interpretation (test code = Abnormal 15194-7) [facility] GLUCOSE (AUTOMATED)2020-03-06 16:23:00 Test Item Value Reference Range Interpretation Comments POCT GLU (test code = 2480932039) 254 mg/dL 70-110 H Lab Interpretation (test code = Abnormal 93093-7) [facility] GLUCOSE (AUTOMATED)2020-03-06 12:51:00 Test Item Value Reference Range Interpretation Comments POCT GLU (test code = 2189067302) 126 mg/dL 70-110 H Lab Interpretation (test code = Abnormal 29979-9) [facility]TR[facility] [id number] 10:16:00 Test Item Value Reference Range Interpretation Comments TROPONIN I (test 0.056 ng/mL See_Comment H [Automated code = 6407989094) message] The system which generated this result [...] ? Lab Interpretation Abnormal (test code = 29478-9) [facility] (NA, K, CL, CO2, GLUCOSE, BUN, CREATININE, CA)2020-03-06 10:13:00 Test Item Value Reference Range Interpretation Comments NA (test code = 136 mmol/L 135-145 9626869591) K (test code = 4.1 mmol/L 3.5-5 0070956737) CL (test code = 95 mmol/L 98-108 L 4501784102) CO2 TOTAL (test code = 30 mmol/L 23-31 3198699065) AGAP (test code = 2-16 4420935837) BUN (test code = 35 mg/dL 7-23 H 7542868458) GLUCOSE (test code = 174 mg/dL 70-110 H 8333027936) CREATININE (test code = 1.67 mg/dL 0.6-1.25 H 4661372139) CALCIUM (test code = 9.7 mg/dL 8.6-10.6 8975673425) eGFR Calculation mL/min/1.73m2 (Non-) (test code = 3431357295) eGFR Calculation mL/min/1.73m2 () (test code = 5980494395) ALYSSA (test code = ALYSSA) Association of [...] tests). Lab Interpretation Abnormal (test code = 64559-7) [facility] WITH [id number] 09:16:00 Test Item Value Reference Range Interpretation Comments WBC (test code = See_Comment [Automated 5439-2) message] The sy stem which generated this result transmitted reference range : 4.20 - 10.70 10*3/?L. The reference range was not used to interpret this result as normal/abnormal . RBC (test code = See_Comment L [Automated 449-8) message] The sy stem which generated this [...] RDW-SD (test code = 45.6 fL 38.5-51.6 94264-2) RDW-CV (test code = 14.3 % 12.1-15.4 788-0) PLT (test code = See_Comment [Automated 777-3) message] The sy stem which generated this result transmitted reference range : 150 - 328 10*3/ ?L. The reference r corey was not used to interpret this result as normal/abnormal . MPV (test code = 9.8 fL 9.8-13 78477-4) NRBC/100 WBC (test See_Comment [Automat ed code = 9016421152) message] The system which generated this result transmitted reference range : 0.0 - 10.0 /100 WBCs. The refer ence range was not u sed to interpret th is result as normal/abnormal . NRBC x10^3 (test code <0.01 See_Comment [Auto mated = 2382450447) message] The s ystem which generated this result transmitted reference range : 10*3/?L. The reference range was not used to interpret this result as normal/abnormal . GRAN MAT (NEUT) % 56.1 % (test code = 770-8) IMM GRAN % (test code 0.10 % = 7699253683) LYMPH % (test code = 29.7 % 736-9) MONO % (test code = 9.6 % 5905-5) EOS % (test code = 3.8 % 713-8) BASO % (test code = 0.7 % 706-2) GRAN MAT x10^3(ANC) 3.79 10*3/uL 1.99-6.95 (test code = 1312931076) IMM GRAN x10^3 (test <0.03 0-0.06 code = 1739474820) LYMPH x10^3 (test code 2.01 10*3/uL 1.09-3.23 = 731-0) MONO x10^3 (test code 0.65 10*3/uL 0.36-1.02 = 742-7) EOS x10^3 (test code = 0.26 10*3/uL 0.06-0.53 711-2) BASO x10^3 (test code 0.05 10*3/uL 0.01-0.09 = 704-7) Lab Interpretation Abnormal (test code = 47397-6) [facility]2020-03-06 01:25:00 Test Item Value Reference Range Interpretation Comments POCT GLU (test code = 7827277301) 208 mg/dL 70-110 H Lab Interpretation (test code = Abnormal 96229-5) [facility]TROP[facility] [id number] 00:08:00 Test Item Value Reference Range Interpretation Comments TROPONIN I (test 0.047 ng/mL See_Comment H [Automated code = 3715257484) message] The system which generated this result [...] ? Lab Interpretation Abnormal (test code = 36989-3) [facility] GLUCOSE (AUTOMATED)2020-03-05 21:19:00 Test Item Value Reference Range Interpretation Comments POCT GLU (test code = 5833385748) 234 mg/dL 70-110 H Lab Interpretation (test code = Abnormal 25149-4) [facility] GLUCOSE (AUTOMATED)2020-03-05 16:55:00 Test Item Value Reference Range Interpretation Comments POCT GLU (test code = 8123060715) 258 mg/dL 70-110 H Lab Interpretation (test code = Abnormal 54928-1) [facility] GLUCOSE (AUTOMATED)2020-03-05 12:59:00 Test Item Value Reference Range Interpretation Comments POCT GLU (test code = 4267915507) 194 mg/dL 70-110 H Lab Interpretation (test code = Abnormal 71609-0) [facility] [id number] 10:54:00 Test Item Value Reference Range Interpretation Comments TROPONIN I (test 0.071 ng/mL See_Comment H [Automated code = 7669822039) message] The system which generated this result [...] ? Lab Interpretation Abnormal (test code = 08277-2) [facility] (NA, K, CL, CO2, GLUCOSE, BUN, CREATININE, CA)2020-03-05 10:43:00 Test Item Value Reference Range Interpretation Comments NA (test code = 139 mmol/L 135-145 9185628391) K (test code = 4.1 mmol/L 3.5-5 7574572403) CL (test code = 101 mmol/L 98-108 5221750924) CO2 TOTAL (test code = 27 mmol/L 23-31 8924758727) AGAP (test code = 2-16 3474293520) BUN (test code = 25 mg/dL 7-23 H 4190372479) GLUCOSE (test code = 243 mg/dL 70-110 H 9396852102) CREATININE (test code = 1.22 mg/dL 0.6-1.25 8340453375) CALCIUM (test code = 9.8 mg/dL 8.6-10.6 1942529802) eGFR Calculation mL/min/1.73m2 (Non-) (test code = 8144930616) eGFR Calculation mL/min/1.73m2 () (test code = 8318812877) ALYSSA (test code = ALYSSA) Association of [...] tests). Lab Interpretation Abnormal (test code = 15117-7) [facility] WITH [id number] 10:23:00 Test Item Value Reference Range Interpretation Comments WBC (test code = See_Comment [Automated message] 6690-2) The system [employer] generated this result transmitted ref erence range: 4.20 - 1 0.70 10*3/?L. The re ference range was not u sed to interpret this result as normal/abnor mal. RBC (test code = See_Comment [Automated message] 779-8) The system [employer] generated this result transmitted ref erence [...] RDW-SD (test code 47.8 fL 38.5-51.6 = 34958-2) RDW-CV (test code 14.4 % 12.1-15.4 = 788-0) PLT (test code = See_Comment [Automated message] 887-3) The system [employer] generated this result transmitted ref erence range: 150 - 32 8 10*3/?L. The re ference range was not u sed to interpret this result as normal/abnor mal. MPV (test code = 9.8 fL 9.8-13 97900-7) NRBC/100 WBC (test See_Comment [Automat ed message] code = 1217233530) The syste m which generated this result transmitted ref erence range: 0.0 - 10 .0 /100 WBCs. The refer ence range was not u sed to interpret this result as normal/abnor mal. NRBC x10^3 (test <0.01 See_Comment [Automated message] code = 7183777521) The syste m which generated this result transmitted ref erence range: 10*3/?L. The reference range was not used to interpr et this result as normal/abnormal . GRAN MAT (NEUT) % 48.8 % (test code = 770-8) IMM GRAN % (test 0.20 % code = 4758378289) LYMPH % (test code 34.7 % = 736-9) MONO % (test code 10.8 % = 5905-5) EOS % (test code = 4.9 % 713-8) BASO % (test code 0.6 % = 706-2) GRAN MAT 2.49 10*3/uL 1.99-6.95 x10^3(ANC) (test code = 0736428615) IMM GRAN x10^3 <0.03 0-0.06 (test code = 4330197581) LYMPH x10^3 (test 1.77 10*3/uL 1.09-3.23 code = 731-0) MONO x10^3 (test 0.55 10*3/uL 0.36-1.02 code = 742-7) EOS x10^3 (test 0.25 10*3/uL 0.06-0.53 code = 711-2) BASO x10^3 (test 0.03 10*3/uL 0.01-0.09 code = 704-7) [facility] HospitalXR [facility]ST 1 [id number] 03:06:08 No acute cardiopulmonary process. Unchanged enlargement [...] reviewed this study and agree with the abovereport.[facility] CORONAVIRUS COVID-19 [id number] 00:34:00 Test Item Value Reference Range Interpretation Comments SARS-CoV-2 (test code = Not Detected Not Detected 10422-2) ALYSSA (test code = ALYSSA) ID NOW COVID-19 Assay is an isothermal nucleic acid amplification test intended for the qualitative detection of nucleic acid from SARS-CoV-2 viral RNA in nasopharyngeal ([employer]) specimens. It is used under Emergency Use [...] indicated. Lab Interpretation Normal (test code = 71626-5) [facility] HospitalTroponin [id number] 00:08:00 Test Item Value Reference Range Interpretation Comments TROPONIN I (test 0.056 ng/mL See_Comment H [Automated code = 5974123159) message] The system which generated this result [...] ? Lab Interpretation Abnormal (test code = 31151-7) [facility] Hospital[facility]MINAL [id number] 00:04:00 Test Item Value Reference Range Interpretation Comments NT-proBNP (test code 562 pg/mL See_Comment H [Autom ated = 6648744105) message] The system which generated this result transmitted reference range : <=450. The reference range was not used to interpret this result as normal/abnormal . ALYSSA (test code = ALYSSA) Biotin has been reported to cause a negative bias, interpret results relative to patient's use of biotin. Lab Interpretation Abnormal (test code = 37016-4) [facility] HospitalProthrombin Time (PT) / [id number] 23:57:00 Test Item Value Reference Range Interpretation [...] tions. Lab Interpretation (test Normal code = 54922-0) [facility] Metabolic Panel (NA, K, CL, CO2, GLUCOSE, BUN, CREATININE, CA)2020-03-04 23:56:00 Test Item Value Reference Range Interpretation Comments NA (test code = 139 mmol/L 135-145 2352749184) K (test code = 4.1 mmol/L 3.5-5 5361560445) CL (test code = 102 mmol/L 98-108 1605733380) CO2 TOTAL (test code = 29 mmol/L 23-31 8093146374) AGAP (test code = 2-16 5460024870) BUN (test code = 23 mg/dL 7-23 7949375460) GLUCOSE (test code = 193 mg/dL 70-110 H 3942778839) CREATININE (test code = 1.25 mg/dL 0.6-1.25 9806553923) CALCIUM (test code = 9.7 mg/dL 8.6-10.6 2091419938) eGFR Calculation mL/min/1.73m2 (Non-) (test code = 3053542499) eGFR Calculation mL/min/1.73m2 () (test code = 2416057839) ALYSSA (test code = ALYSSA) Association of [...] tests). Lab Interpretation Abnormal (test code = 37991-2) [facility] HospitalHepatic Function Panel (ALB, T.PRO, BILI T, BU/BC, ALT, AST, ALK PHOS)2020-03-04 23:56:00 Test Item Value Reference Range Interpretation Comments TOTAL BILI (test code = 4521002172) 1.1 mg/dL 0.1-1.1 BILI UNCON (test code = 8201819707) 1.1 mg/dL 0.1-1.1 BILI CONJ (test code = 0091180813) 0.0 mg/dL 0-0.3 T PROTEIN (test code = 5595317694) 7.1 g/dL 6.3-8.2 ALBUMIN (test code = 1541752045) 4.1 g/dL 3.5-5 ALK PHOS (test code = 4878796822) 61 U/L 34-122 ALTv (test code = 1742-6) 16 U/L 5-50 AST(SGOT) (test code = 2979439556) 23 U/L 13-40 Lab Interpretation (test code = Normal 09027-1) [facility] HospitalLipase [id number] 23:56:00 Test Item Value Reference Range Interpretation Comments LIPASE (test code = 2986643792) 149 U/L 0-220 Lab Interpretation (test code = Normal 93473-7) [facility] HospitalaPTT2020-04-19 23:56:00 Test Item Value Reference Range Interpretation Comments APTT Patient (test See_Comment [Automat ed code = 3173-2) message] The system which generated this result transmitted reference range : 23 - 38 Seconds . The reference range was not used to interpr et this result as normal/abnormal . ALYSSA (test code = ALYSSA) The [facility] patient population mean normal value for aPTT is 30 seconds. Lab Interpretation Normal (test code = 51199-5) [facility] WITH [id number] 23:46:00 Test Item Value Reference Range Interpretation [...] RDW-SD (test code = 48.3 fL 38.5-51.6 05029-7) RDW-CV (test code = 14.7 % 12.1-15.4 788-0) PLT (test code = See_Comment [Automated 777-3) message] The sy stem which generated this result transmitted reference range : 150 - 328 10*3/ ?L. The reference r corey was not used to interpret this result as normal/abnormal . MPV (test code = 9.8 fL 9.8-13 37948-1) NRBC/100 WBC (test See_Comment [Automat ed code = 7872191120) message] The system which generated this result transmitted reference range : 0.0 - 10.0 /100 WBCs. The refer ence range was not u sed to interpret th is result as normal/abnormal . NRBC x10^3 (test code <0.01 See_Comment [Auto mated = 9260462852) message] The s ystem which generated this result transmitted reference range : 10*3/?L. The reference range was not used to interpret this result as normal/abnormal . GRAN MAT (NEUT) % 60.1 % (test code = 770-8) IMM GRAN % (test code 0.20 % = 9292611491) LYMPH % (test code = 26.4 % 736-9) MONO % (test code = 9.9 % 5905-5) EOS % (test code = 2.8 % 713-8) BASO % (test code = 0.6 % 706-2) GRAN MAT x10^3(ANC) 3.17 10*3/uL 1.99-6.95 (test code = 2392918578) IMM GRAN x10^3 (test <0.03 0-0.06 code = 2227779327) LYMPH x10^3 (test code 1.39 10*3/uL 1.09-3.23 = 731-0) MONO x10^3 (test code 0.52 10*3/uL 0.36-1.02 = 742-7) EOS x10^3 (test code = 0.15 10*3/uL 0.06-0.53 711-2) BASO x10^3 (test code 0.03 10*3/uL 0.01-0.09 = 704-7) Lab Interpretation Abnormal (test code = 16594-3) [facility] GLUCOSE (AUTOMATED)2020-03-02 16:04:00 Test Item Value Reference Range Interpretation Comments POCT GLU (test code = 5611615942) 214 mg/dL 70-110 H Lab Interpretation (test code = Abnormal 34888-5) [facility] GLUCOSE (AUTOMATED)2020-03-02 16:04:00 Test Item Value Reference Range Interpretation Comments POCT GLU (test code = 0384681581) 271 mg/dL 70-110 H Lab Interpretation (test code = Abnormal 71725-9) [facility] HospitalN-[facility]MINAL [id number] 09:43:00 Test Item Value Reference Range Interpretation Comments NT-proBNP (test code 1670 pg/mL See_Comment H [Autom ated = 0454037815) message] The system which generated this result transmitted reference range : <=450. The reference range was not used to interpret this result as normal/abnormal . ALYSSA (test code = ALYSSA) Biotin has been reported to cause a negative bias, interpret results relative to patient's use of biotin. Lab Interpretation Abnormal (test code = 56549-5) [facility] METABOLIC PANEL (NA, K, CL, CO2, GLUCOSE, BUN, CREATININE, CA)2020-03-02 09:33:00 Test Item Value Reference Range Interpretation Comments NA (test code = 143 mmol/L 135-145 1962185648) K (test code = 3.8 mmol/L 3.5-5 3324586130) CL (test code = 105 mmol/L 98-108 0246211828) CO2 TOTAL (test code = 28 mmol/L 23-31 6385968301) AGAP (test code = 2-16 7054265148) BUN (test code = 19 mg/dL 7-23 0240488423) GLUCOSE (test code = 152 mg/dL 70-110 H 8710075382) CREATININE (test code = 1.18 mg/dL 0.6-1.25 4181005116) CALCIUM (test code = 9.0 mg/dL 8.6-10.6 5968333628) eGFR Calculation mL/min/1.73m2 (Non-) (test code = 8818164955) eGFR Calculation mL/min/1.73m2 () (test code = 0667647646) ALYSSA (test code = ALYSSA) Association of [...] tests). Lab Interpretation Abnormal (test code = 56967-4) [facility] HospitalMAGNESIUM2020-04-17 09:33:00 Test Item Value Reference Range Interpretation Comments MAGNESIUM (test code = 1636702659) 1.8 mg/dL 1.7-2.4 Lab Interpretation (test code = Normal 21878-9) [facility]2020-03-01 20:42:00 Test Item Value Reference Range Interpretation Comments POCT GLU (test code = 6775198158) 231 mg/dL 70-110 H Lab Interpretation (test code = Abnormal 16154-7) [facility] HospitalVITAMIN B12, [id number] 11:51:00 Test Item Value Reference Range Interpretation Comments VIT B12 (test code = 325 pg/mL 240-930 0141551442) ALYSSA (test code = ALYSSA) Biotin has been reported to cause a positive bias, interpret results relative to patient's use of biotin. Lab Interpretation (test Normal code = 04010-3) [facility] HospitalFOLATE2020-04-16 11:49:00 Test Item Value Reference Range Interpretation Comments FOLATE SER (test code = >20.0 3-20 H Slig ht hemolysis 1466086986) Lab Interpretation (test Abnormal code = 74816-7) [facility] HospitalPROCALCITONIN2020-04-16 10:49:00 Test Item Value Reference Range Interpretation Comments Procalcitonin (test 3.05 ng/mL <0.07 H code = 7560194562) ALYSSA (test code = ALYSSA) INTERPRETATION OF [...] biotics/default.asp Lab Interpretation Abnormal (test code = 31084-4) [facility] HospitalTROPONIN [id number] 09:58:00 Test Item Value Reference Range Interpretation Comments TROPONIN I (test 0.093 ng/mL See_Comment H [Automated code = 1826891912) message] The system which generated this result [...] ? Lab Interpretation Abnormal (test code = 34279-0) [facility] HospitalN-TERMINAL [id number] 09:55:00 Test Item Value Reference Range Interpretation Comments NT-proBNP (test code 4450 pg/mL See_Comment H [Autom ated = 6446642910) message] The system which generated this result transmitted reference range : <=450. The reference range was not used to interpret this result as normal/abnormal . ALYSSA (test code = ALYSSA) Biotin has been reported to cause a negative bias, interpret results relative to patient's use of biotin. Lab Interpretation Abnormal (test code = 30765-0) [facility] (NA, K, CL, CO2, GLUCOSE, BUN, CREATININE, CA)2020-03-01 09:50:00 Test Item Value Reference Range Interpretation Comments NA (test code = 141 mmol/L 135-145 8474452696) K (test code = 3.5 mmol/L 3.5-5 2598853901) CL (test code = 105 mmol/L 98-108 2978458836) CO2 TOTAL (test code = 26 mmol/L 23-31 5630237058) AGAP (test code = 2-16 5776340915) BUN (test code = 13 mg/dL 7-23 8935072588) GLUCOSE (test code = 219 mg/dL 70-110 H 0828316367) CREATININE (test code = 1.01 mg/dL 0.6-1.25 5353440061) CALCIUM (test code = 8.7 mg/dL 8.6-10.6 0894452243) eGFR Calculation mL/min/1.73m2 (Non-) (test code = 5394832180) eGFR Calculation mL/min/1.73m2 () (test code = 6960784365) ALYSSA (test code = ALYSSA) Association of [...] tests). Lab Interpretation Abnormal (test code = 27310-1) [facility] HospitalMagnesium [id number] 09:50:00 Test Item Value Reference Range Interpretation Comments MAGNESIUM (test code = 2222673930) 1.9 mg/dL 1.7-2.4 Lab Interpretation (test code = Normal 31983-2) [facility] HospitalCB WITH [id number] 09:22:00 Test Item Value Reference Range Interpretation Comments WBC (test code = See_Comment [Automated 5090-2) message] The sy stem which generated this result transmitted reference range : 4.20 - 10.70 10*3/?L. The reference range was not used to interpret this result as normal/abnormal . RBC (test code = See_Comment L [Automated 809-8) message] The sy stem which generated this [...] RDW-SD (test code = 47.8 fL 38.5-51.6 04281-8) RDW-CV (test code = 14.8 % 12.1-15.4 788-0) PLT (test code = See_Comment L [Automated 777-3) message] The sy stem which generated this result transmitted reference range : 150 - 328 10*3/ ?L. The reference r corey was not used to interpret this result as normal/abnormal . MPV (test code = 9.9 fL 9.8-13 50700-7) NRBC/100 WBC (test See_Comment [Automat ed code = 1486367365) message] The system which generated this result transmitted reference range : 0.0 - 10.0 /100 WBCs. The refer ence range was not u sed to interpret th is result as normal/abnormal . NRBC x10^3 (test code <0.01 See_Comment [Auto mated = 3278918182) message] The s ystem which generated this result transmitted reference range : 10*3/?L. The reference range was not used to interpret this result as normal/abnormal . GRAN MAT (NEUT) % 66.0 % (test code = 770-8) IMM GRAN % (test code 0.30 % = 7617919587) LYMPH % (test code = 20.8 % 736-9) MONO % (test code = 9.5 % 5905-5) EOS % (test code = 2.8 % 713-8) BASO % (test code = 0.6 % 706-2) GRAN MAT x10^3(ANC) 4.44 10*3/uL 1.99-6.95 (test code = 4734894975) IMM GRAN x10^3 (test <0.03 0-0.06 code = 1427881101) LYMPH x10^3 (test code 1.40 10*3/uL 1.09-3.23 = 731-0) MONO x10^3 (test code 0.64 10*3/uL 0.36-1.02 = 742-7) EOS x10^3 (test code = 0.19 10*3/uL 0.06-0.53 711-2) BASO x10^3 (test code 0.04 10*3/uL 0.01-0.09 = 704-7) Lab Interpretation Abnormal (test code = 87366-1) [facility] HospitalGLYCOSYLATED HEMOGLOBIN (A1C)2020-03-01 06:49:00 Test Item Value [...] Indicated Lab Interpretation Abnormal (test code = 79561-7) [facility] HospitalURIC [id number] 06:25:00 Test Item Value Reference Range Interpretation Comments URIC ACID (test code = 4342023009) 2.3 mg/dL 3.6-8 L Lab Interpretation (test code = Abnormal 48752-8) [facility] HospitalSEDIMENTATION [id number] 05:25:00 Test Item Value Reference Range Interpretation Comments ESR (test code = See_Comment H [Automated message] 4052556854) The system [employer] h generated this result transmitted ref erence range: 0 - 10 m m/HR. The reference r corey was not used to interpret this result as normal/abnor mal. Lab Interpretation (test Abnormal code = 19865-4) [facility] HospitalN-TERMINAL [id number] 04:07:00 Test Item Value Reference Range Interpretation Comments NT-proBNP (test code 4080 pg/mL See_Comment H [Autom ated = 0185097360) message] The system which generated this result transmitted reference range : <=450. The reference range was not used to interpret this result as normal/abnormal . ALYSSA (test code = ALYSSA) Biotin has been reported to cause a negative bias, interpret results relative to patient's use of biotin. Lab Interpretation Abnormal (test code = 19369-9) [facility] HospitalPOCT GLUCOSE (AUTOMATED)2020-03-01 03:42:00 Test Item Value Reference Range Interpretation Comments POCT GLU (test code = 9282083834) 190 mg/dL 70-110 H Lab Interpretation (test code = Abnormal 96947-7) [facility] HospitalTROPONIN [id number] 03:30:00 Test Item Value Reference Range Interpretation Comments TROPONIN I (test 0.098 ng/mL See_Comment H [Automated code = 9463597344) message] The system which generated this result [...] ? Lab Interpretation Abnormal (test code = 99369-1) [facility] HospitalHEPATIC FUNCTION PANEL (31607) (ALB,T.PRO,BILI T,BU/BC,ALT,AST,ALK PHOS)2020-03-01 03:24:00 Test Item Value Reference Range Interpretation Comments TOTAL BILI (test code = 6047564428) 2.2 mg/dL 0.1-1.1 H BILI UNCON (test code = 6233106689) 2.0 mg/dL 0.1-1.1 H BILI CONJ (test code = 0390822090) 0.0 mg/dL 0-0.3 T PROTEIN (test code = 6338454578) 6.7 g/dL 6.3-8.2 ALBUMIN (test code = 3346574420) 4.0 g/dL 3.5-5 ALK PHOS (test code = 3525597548) 48 U/L 34-122 ALTv (test code = 1742-6) 18 U/L 5-50 AST(SGOT) (test code = 1836152433) 57 U/L 13-40 H Lab Interpretation (test code = Abnormal 09319-5) [facility] HospitalPhosphorus [id number] 03:17:00 Test Item Value Reference Range Interpretation Comments PHOSPHORUS (test code = 3.1 mg/dL 2.5-5 Slig ht hemolysis 3196770389) Lab Interpretation (test Normal code = 15923-0) [facility] HospitalPROTHROMBIN TIME / [id number] 03:08:00 Test Item Value Reference Range Interpretation Comments PROTIME PATIENT (test See_Comment [Auto mated message] code = 5964-2) The system [facility] generated this result transmitted ref erence range: 12.0 - 1 4.7 Seconds. The re ference range was not u sed to interpret this result as normal/abnor mal. INR (test code = 6301-6) Nor mal INR <1.1; Warfarin Therap eutic range 2.0 to 3. 0 or 2.5 to 3.5, dep ending upon the indica tions. Lab Interpretation (test Normal code = 75096-2) [facility] HospitalCREATINE [id number] 03:01:00 Test Item Value Reference Range Interpretation Comments CK (test code = 8692560739) 68 U/L 33-194 Lab Interpretation (test code = Normal 46570-4) [facility] HospitalURIC [id number] 02:41:00 Test Item Value Reference Range Interpretation Comments URIC ACID (test code = 8372937130) 2.3 mg/dL 3.6-8 L Lab Interpretation (test code = Abnormal 35295-9) [facility] HospitalTHYROID STIMULATING [id number] 02:26:00 Test Item Value Reference Range Interpretation Comments TSH (test code = See_Comment [Automated message] 1064679975) The system [facility] h generated this result transmitted ref erence range: 0.45 - 4 .70 mIU/L. The refe rence range was not u sed to interpret this result as normal/abnor mal. Lab Interpretation (test Normal code = 35200-7) [facility] HospitalN-TERMINAL [id number] 02:04:00 Test Item Value Reference Range Interpretation Comments NT-proBNP (test code 4390 pg/mL See_Comment H [Autom ated = 8743930325) message] The system which generated this result transmitted reference range : <=450. The reference range was not used to interpret this result as normal/abnormal . ALYSSA (test code = ALYSSA) Biotin has been reported to cause a negative bias, interpret results relative to patient's use of biotin. Lab Interpretation Abnormal (test code = 90187-7) [facility] HospitalMAGNESIUM2020-04-16 02:01:00 Test Item Value Reference Range Interpretation Comments MAGNESIUM (test code = 7166446886) 1.5 mg/dL 1.7-2.4 L Lab Interpretation (test code = Abnormal 75119-8) [facility] HospitalLIPASE2020-04-16 00:22:00 Test Item Value Reference Range Interpretation Comments LIPASE (test code = 1506536050) 68 U/L 0-220 Lab Interpretation (test code = Normal 69527-4) [facility] HospitalCORONAVIRUS COVID-19 [id number] 23:42:00 Test Item Value Reference Range Interpretation Comments SARS-CoV-2 (test code = Not Detected Not Detected 60290-5) ALYSSA (test code = ALYSSA) ID NOW COVID-19 Assay is an isothermal nucleic acid amplification test intended for the qualitative detection of nucleic acid from SARS-CoV-2 viral RNA in nasopharyngeal ([employer]MENT [employer]) specimens. It is used under Emergency Use [...] indicated. Lab Interpretation Normal (test code = 94041-6) [facility] HospitalXR CHEST 1 VW [id number] 23:26:02 No acute intrathoracic abnormality, specifically no radiographic findingsto suggest COVID-19 pneumonia. Disclaimer: Generally, the findings on chest imaging in COVID-19 are notspecific, and overlap with other infections, including influenza, H1N1,SARS and MERS. According to the Centers for Disease Control (CDC) and recent statement ofthe [employer], viral testing remains the [...] stimulating device overlie the mid thoracic spine. [facility], Radiant ResultsInft User - 02/29/2020 6:27 [...] Disease Control (CDC) and recent statement ofthe [employer], viral testing remains the only specificmethod of diagnosis. Confirmation with the viral test is required, even ifradiologic findings are suggestive of COVID-[address]. Preliminary Report Dictated by Resident: Radu Boo MD., have reviewed this study and agree with theabovereport.[facility] HospitalWendy [id number] 22:59:00 Test Item Value Reference Range Interpretation Comments TROPONIN I (test 0.071 ng/mL See_Comment H [Automated code = 3794670753) message] The system which generated this result [...] ? Lab Interpretation Abnormal (test code = 93094-2) [facility] HospitalBa[facility] Met[facility] (NA, K, CL, CO2, GLUCOSE, BUN, CREATININE, CA)2020-02-29 22:48:00 Test Item Value Reference Range Interpretation Comments NA (test code = 141 mmol/L 135-145 9618962568) K (test code = 3.2 mmol/L 3.5-5 L 3152844295) CL (test code = 104 mmol/L 98-108 2865989694) CO2 TOTAL (test code = 25 mmol/L 23-31 1835719386) AGAP (test code = 2-16 5298254061) BUN (test code = 12 mg/dL 7-23 0335835744) GLUCOSE (test code = 250 mg/dL 70-110 H 7036863928) CREATININE (test code = 1.02 mg/dL 0.6-1.25 0209741504) CALCIUM (test code = 8.9 mg/dL 8.6-10.6 0958309028) eGFR Calculation mL/min/1.73m2 (Non-) (test code = 2020996630) eGFR Calculation mL/min/1.73m2 () (test code = 1690774369) ALYSSA (test code = ALYSSA) Association of [...] tests). Lab Interpretation Abnormal (test code = 61750-2) [facility] WITH [id number] 22:41:00 Test Item Value Reference Range Interpretation Comments WBC (test code = See_Comment [Automated 4882-2) message] The sy stem which generated this result transmitted reference range : 4.20 - 10.70 10*3/?L. The reference range was not used to interpret this result as normal/abnormal . RBC (test code = See_Comment L [Automated 309-8) message] The sy stem which generated this [...] RDW-SD (test code = 46.6 fL 38.5-51.6 74069-1) RDW-CV (test code = 14.6 % 12.1-15.4 788-0) PLT (test code = See_Comment [Automated 777-3) message] The sy stem which generated this result transmitted reference range : 150 - 328 10*3/ ?L. The reference r corey was not used to interpret this result as normal/abnormal . MPV (test code = 9.7 fL 9.8-13 L 20139-2) NRBC/100 WBC (test See_Comment [Automat ed code = 6819571245) message] The system which generated this result transmitted reference range : 0.0 - 10.0 /100 WBCs. The refer ence range was not u sed to interpret th is result as normal/abnormal . NRBC x10^3 (test code <0.01 See_Comment [Auto mated = 5346219869) message] The s ystem which generated this result transmitted reference range : 10*3/?L. The reference range was not used to interpret this result as normal/abnormal . GRAN MAT (NEUT) % 68.6 % (test code = 770-8) IMM GRAN % (test code 0.30 % = 9054470720) LYMPH % (test code = 18.6 % 736-9) MONO % (test code = 10.1 % 5905-5) EOS % (test code = 1.8 % 713-8) BASO % (test code = 0.6 % 706-2) GRAN MAT x10^3(ANC) 4.29 10*3/uL 1.99-6.95 (test code = 0138127188) IMM GRAN x10^3 (test <0.03 0-0.06 code = 8736653784) LYMPH x10^3 (test code 1.16 10*3/uL 1.09-3.23 = 731-0) MONO x10^3 (test code 0.63 10*3/uL 0.36-1.02 = 742-7) EOS x10^3 (test code = 0.11 10*3/uL 0.06-0.53 711-2) BASO x10^3 (test code 0.04 10*3/uL 0.01-0.09 = 704-7) Lab Interpretation Abnormal (test code = 63284-8) [facility] HospitalLaaric Acid Whole [id number] 22:38:00 Test Item Value Reference Range Interpretation Comments LACTIC ACID (test code = 1.88 mmol/L 0.3-2.6 5955589006) [facility] HospitalPOCA GLUCOSE (AUTOMATED)2020-01-17 18:18:00 Test Item Value Reference Range Interpretation Comments POCT GLU (test code = 0210606305) 290 mg/dL 70-110 H Lab Interpretation (test code = Abnormal 37208-6) [facility] HospitalTROPONIN [id number] 18:01:00 Test Item Value Reference Range Interpretation Comments TROPONIN I (test 0.065 ng/mL See_Comment H [Automated code = 7721623974) message] The system which generated this result [...] ? Lab Interpretation Abnormal (test code = 30848-9) [facility] HospitalaPTT2020-03-03 17:10:00 Test Item Value Reference Range Interpretation Comments APTT Patient (test See_Comment H [Automat ed code = 3173-2) message] The system which generated this result transmitted reference range : 23 - 38 Seconds . The reference range was not used to interpr et this result as normal/abnormal . ALYSSA (test code = ALYSSA) The [facility] patient population mean normal value for aPTT is 30 seconds. Lab Interpretation Abnormal (test code = 57722-1) [facility] HospitalPOCT GLUCOSE (AUTOMATED)2020-01-17 11:59:00 Test Item Value Reference Range Interpretation Comments POCT GLU (test code = 1451662068) 185 mg/dL 70-110 H Lab Interpretation (test code = Abnormal 40877-9) [facility] HospitalTROPONIN [id number] 11:23:00 Test Item Value Reference Range Interpretation Comments TROPONIN I (test 0.073 ng/mL See_Comment H [Automated code = 4061249186) message] The system which generated this result [...] ? Lab Interpretation Abnormal (test code = 63558-2) [facility]Ba[facility] Metabolic Panel (NA, K, CL, CO2, GLUCOSE, BUN, CREATININE, CA)2020-01-17 11:16:00 Test Item Value Reference Range Interpretation Comments NA (test code = 136 mmol/L 135-145 9741572852) K (test code = 3.3 mmol/L 3.5-5 L 9726997461) CL (test code = 101 mmol/L 98-108 7181304068) CO2 TOTAL (test code = 26 mmol/L 23-31 5208396796) AGAP (test code = 2-16 1387873495) BUN (test code = 19 mg/dL 7-23 9303631754) GLUCOSE (test code = 227 mg/dL 70-110 H 0920838306) CREATININE (test code = 1.33 mg/dL 0.6-1.25 H 6513897464) CALCIUM (test code = 9.1 mg/dL 8.6-10.6 0993360524) eGFR Calculation mL/min/1.73m2 (Non-) (test code = 3175805934) eGFR Calculation mL/min/1.73m2 () (test code = 2014663692) ALYSSA (test code = ALYSSA) Association of [...] tests). Lab Interpretation Abnormal (test code = 47572-3) [facility] HospitalaPTT2020-03-03 11:00:00 Test Item Value Reference Range Interpretation Comments APTT Patient (test See_Comment H [Automat ed code = 3173-2) message] The system which generated this result transmitted reference range : 23 - 38 Seconds . The reference range was not used to interpr et this result as normal/abnormal . ALYSSA (test code = ALYSSA) The [facility] patient population mean normal value for aPTT is 30 seconds. Lab Interpretation Abnormal (test code = 94627-2) [facility] HospitalCB WITH [id number] 10:43:00 Test Item Value Reference Range Interpretation Comments WBC (test code = See_Comment [Automated message] 6690-2) The system [employer] generated this result transmitted ref erence range: 4.20 - 1 0.70 10*3/?L. The re ference range was not u sed to interpret this result as normal/abnor mal. RBC (test code = See_Comment [Automated message] 789-8) The system [employer] generated this result transmitted ref erence [...] RDW-SD (test code 41.5 fL 38.5-51.6 = 94620-6) RDW-CV (test code 12.8 % 12.1-15.4 = 788-0) PLT (test code = See_Comment [Automated message] 777-3) The system whic h generated this result transmitted ref erence range: 150 - 32 8 10*3/?L. The re ference range was not u sed to interpret this result as normal/abnor mal. MPV (test code = 10.7 fL 9.8-13 39126-1) NRBC/100 WBC (test See_Comment [Automat ed message] code = 4330310587) The syste m which generated this result transmitted ref erence range: 0.0 - 10 .0 /100 WBCs. The refer ence range was not u sed to interpret this result as normal/abnor mal. NRBC x10^3 (test <0.01 See_Comment [Automated message] code = 0176045778) The syste m which generated this result transmitted ref erence range: 10*3/?L. The reference range was not used to interpr et this result as normal/abnormal . GRAN MAT (NEUT) % 56.1 % (test code = 770-8) IMM GRAN % (test 0.30 % code = 4894874267) LYMPH % (test code 29.5 % = 736-9) MONO % (test code 9.9 % = 5905-5) EOS % (test code = 3.3 % 713-8) BASO % (test code 0.9 % = 706-2) GRAN MAT 3.73 10*3/uL 1.99-6.95 x10^3(ANC) (test code = 1897964406) IMM GRAN x10^3 <0.03 0-0.06 (test code = 3743700766) LYMPH x10^3 (test 1.96 10*3/uL 1.09-3.23 code = 731-0) MONO x10^3 (test 0.66 10*3/uL 0.36-1.02 code = 742-7) EOS x10^3 (test 0.22 10*3/uL 0.06-0.53 code = 711-2) BASO x10^3 (test 0.06 10*3/uL 0.01-0.09 code = 704-7) [facility] GLUCOSE (AUTOMATED)2020-01-17 01:49:00 Test Item Value Reference Range Interpretation Comments POCT GLU (test code = 4211172743) 305 mg/dL 70-110 H Lab Interpretation (test code = Abnormal 64769-2) [facility] GLUCOSE (AUTOMATED)2020-01-17 00:01:00 Test Item Value Reference Range Interpretation Comments POCT GLU (test code = 2697259470) 271 mg/dL 70-110 H Lab Interpretation (test code = Abnormal 65551-4) [facility] HospitalaPTT2020-03-02 22:23:00 Test Item Value Reference Range Interpretation Comments APTT Patient (test See_Comment H [Automat ed code = 3173-2) message] The system which generated this result transmitted reference range : 23 - 38 Seconds . The reference range was not used to interpr et this result as normal/abnormal . ALYSSA (test code = ALYSSA) The [facility] patient population mean normal value for aPTT is 30 seconds. Lab Interpretation Abnormal (test code = 80034-5) [facility] HospitalTROPONIN [id number] 21:22:00 Test Item Value Reference Range Interpretation Comments TROPONIN I (test 0.061 ng/mL See_Comment H [Automated code = 3666943421) message] The system which generated this result [...] ? Lab Interpretation Abnormal (test code = 24230-5) [facility] HospitalPO[facility]SE ([facility])2020-01-16 17:37:00 Test Item Value Reference Range Interpretation Comments POCT GLU (test code = 6527320624) 271 mg/dL 70-110 H Lab Interpretation (test code = Abnormal 22634-4) [facility]aPTT2020-03-02 12:47:00 Test Item Value Reference Range Interpretation Comments APTT Patient (test See_Comment HH [Automat ed code = 3173-2) message] The system which generated this result transmitted reference range : 23 - 38 Seconds . The reference range was not used to interpr et this result as normal/abnormal . ALYSSA (test code = ALYSSA) The [facility] patient population mean normal value for aPTT is 30 seconds. Lab Interpretation Abnormal (test code = 61110-6) [facility] HospitalTROPONIN [id number] 12:35:00 Test Item Value Reference Range Interpretation Comments TROPONIN I (test 0.074 ng/mL See_Comment H [Automated code = 2332842038) message] The system which generated this result [...] ? Lab Interpretation Abnormal (test code = 02448-5) [facility] HospitalLIPID PANEL (35155)(TOTAL CHOLESTEROL, TRIGLYCERIDES, HDL)2020-01-16 12:23:00 Test Item Value Reference Range Interpretation Comments CHOL (test code = 95 mg/dL 120-200 L 2108448109) HDL (test code = 44 mg/dL >40 4020638184) HDLC RATIO (test code = See_Comment [Au tomated message] 7318066016) The system [employer] generated this result transmitted ref erence range: <=5.0. T he reference range was not used to int erpret this result as normal/abnormal . TRIG (test code = 89 mg/dL 30-170 3483593883) LDL CHOL (test code = 33 mg/dL See_Comment [Auto mated message] 35443-6) The system [employer] generated this result transmitted ref erence range: <=160. T he reference range was not used to int erpret this result as normal/abnormal . VLDL (test code = 18 mg/dL 5-60 8109334695) Lab Interpretation (test Abnormal code = 47287-5) [facility] HospitalGlycosylated Hemoglobin (A1C)2020-01-16 09:03:00 Test Item Value [...] Indicated Lab Interpretation Abnormal (test code = 08490-2) [facility] HospitalCritical [id number] 05:48:18Charanjit Heck MD ? ? 01/15/2020 11:48 [...] review of old charts and examination of patientUnHarlingen Medical CenterProthrombin Time (PT) / [id number] 05:28:00 Test Item Value Reference Range Interpretation [...] tions. Lab Interpretation (test Normal code = 65539-1) [facility] HospitalaPTT2020-03-02 05:27:00 Test Item Value Reference Range Interpretation Comments APTT Patient (test See_Comment [Automat ed code = 3173-2) message] The system which generated this result transmitted reference range : 23 - 38 Seconds . The reference range was not used to interpr et this result as normal/abnormal . ALYSSA (test code = ALYSSA) The [facility] patient population mean normal value for aPTT is 30 seconds. Lab Interpretation Normal (test code = 85593-2) [facility] HospitalTroponin [id number] 05:11:00 Test Item Value Reference Range Interpretation Comments TROPONIN I (test 0.075 ng/mL See_Comment H [Automated code = 0950584050) message] The system which generated this result [...] ? Lab Interpretation Abnormal (test code = 68473-1) [facility] HospitalN-TERMINAL [id number] 05:08:00 Test Item Value Reference Range Interpretation Comments NT-proBNP (test code 896 pg/mL See_Comment H [Autom ated = 8228685537) message] The system which generated this result transmitted reference range : <=450. The reference range was not used to interpret this result as normal/abnormal . ALYSSA (test code = ALYSSA) Biotin has been reported to cause a negative bias, interpret results relative to patient's use of biotin. Lab Interpretation Abnormal (test code = 92764-7) [facility] Metabolic Panel (NA, K, CL, CO2, GLUCOSE, BUN, CREATININE, CA)2020-01-16 04:59:00 Test Item Value Reference Range Interpretation Comments NA (test code = 136 mmol/L 135-145 6530536823) K (test code = 4.0 mmol/L 3.5-5 7595601691) CL (test code = 101 mmol/L 98-108 2161048729) CO2 TOTAL (test code = 27 mmol/L 23-31 1704872845) AGAP (test code = 2-16 7394726313) BUN (test code = 17 mg/dL 7-23 7483251891) GLUCOSE (test code = 445 mg/dL 70-110 H 6514802648) CREATININE (test code = 1.29 mg/dL 0.6-1.25 H 3548393755) CALCIUM (test code = 8.8 mg/dL 8.6-10.6 5713474370) eGFR Calculation mL/min/1.73m2 (Non-) (test code = 6542614769) eGFR Calculation mL/min/1.73m2 () (test code = 8619145248) ALYSSA (test code = ALYSSA) Association of [...] tests). Lab Interpretation Abnormal (test code = 94578-8) [facility] HospitalHepatic Function Panel (ALB, T.PRO, BILI T, BU/BC, ALT, AST, ALK PHOS)2020-01-16 04:59:00 Test Item Value Reference Range Interpretation Comments TOTAL BILI (test code = 5201570233) 1.3 mg/dL 0.1-1.1 H BILI UNCON (test code = 6725946357) 1.1 mg/dL 0.1-1.1 BILI CONJ (test code = 8608903040) 0.0 mg/dL 0-0.3 T PROTEIN (test code = 0579047853) 6.3 g/dL 6.3-8.2 ALBUMIN (test code = 8930830031) 3.9 g/dL 3.5-5 ALK PHOS (test code = 0943428017) 67 U/L 34-122 ALTv (test code = 1742-6) 15 U/L 5-50 AST(SGOT) (test code = 5374959922) 23 U/L 13-40 Lab Interpretation (test code = Abnormal 37731-2) [facility] 1 [id number] 04:54:13Impression: Moderate cardiomegaly without acute pulmonary process. RL: 460 AFC: [id number] Indication: Chest pain Comparison: None available Findings: Single AP view of the chest. The cardiopericardial silhouette ismoderately enlarged. The lungs are clear bilaterally. The visualized bonythorax is intact. A thoracic neurostimulator device is in place. [facility], Radiant Results Inft User - 01/15/2020 10:55 PM CSTIndication: Chest painComparison: None availableFindings: Single AP view of the chest. The cardiopericardial silhouette ismoderately enlarged. The lungs are clear bilaterally. The visualized bonythorax is intact. A thoracic neurostimulator device is in place.IMPRESSIONImpression:Moderate cardiomegaly without acute pulmonary process.RL: [id number] signed by Esperanza Rosado MD, PhD at 01/15/2020 10:54 PMUnK[facility] WITH [id number] 04:51:00 Test Item Value Reference Range Interpretation [...] RDW-SD (test code = 40.7 fL 38.5-51.6 19007-8) RDW-CV (test code = 12.8 % 12.1-15.4 788-0) PLT (test code = See_Comment L [Automated 777-3) message] The sy stem which generated this result transmitted reference range : 150 - 328 10*3/ ?L. The reference r corey was not used to interpret this result as normal/abnormal . MPV (test code = 10.6 fL 9.8-13 46471-1) IPF % (test code = 2.8 % 1.2-10.7 Platelet count [id number]) measured by fluorescence method. NRBC/100 WBC (test See_Comment [Automat ed code = 5200804923) message] The system which generated this result transmitted reference range : 0.0 - 10.0 /100 WBCs. The refer ence range was not u sed to interpret th is result as normal/abnormal . NRBC x10^3 (test code <0.01 See_Comment [Auto mated = [id number]) message] The s ystem which generated this result transmitted reference range : 10*3/?L. The reference range was not used to interpret this result as normal/abnormal . GRAN MAT (NEUT) % 56.0 % (test code = 770-8) IMM GRAN % (test code 0.20 % = 3431140942) LYMPH % (test code = 30.5 % 736-9) MONO % (test code = 9.6 % 5905-5) EOS % (test code = 2.8 % 713-8) BASO % (test code = 0.9 % 706-2) GRAN MAT x10^3(ANC) 2.98 10*3/uL 1.99-6.95 (test code = 2197875163) IMM GRAN x10^3 (test <0.03 0-0.06 code = 5865750560) LYMPH x10^3 (test code 1.62 10*3/uL 1.09-3.23 = 731-0) MONO x10^3 (test code 0.51 10*3/uL 0.36-1.02 = 742-7) EOS x10^3 (test code = 0.15 10*3/uL 0.06-0.53 711-2) BASO x10^3 (test code 0.05 10*3/uL 0.01-0.09 = 704-7) Lab Interpretation Abnormal (test code = 11788-0) [facility]"
[2022-01-16 13:34] LABS: Absolute Lymphocytes (CBC) 1.3 K/uL (0.7-4.9); Hematocrit 35.7 % (39.6-49.0); Lymphocytes % 18.6 % (15.3-44.8); MPV 8.2 fL (7.6-11.3); RBC Red Blood Cell Count 3.86 M/uL (4.33-5.43)
[2022-01-16] MEDS ORDERED: ONDANSETRON 4 MG/2 ML VIAL ONE (13:34)
[2022-01-16] MEDS ORDERED: MORPHINE 4 MG/ML SYR ONE ×2 (13:34→14:28)
[2022-01-16] MEDS ORDERED: NA CHLORIDE 0.9% 1,000 ML ONE (13:34)
[2022-01-16 13:38] LABS: Protime INR 1.03
[2022-01-16 14:00] LABS: Potassium 4.3 mmol/L (3.5-5.1)
--- NOTE | 2022-01-16 14:25 | RAD REPORT ---
EXAM DESCRIPTION: CT - Spine Lumbar Wo Con - 01/16/2022 1:56 pm CLINICAL HISTORY: LOWER BACK PAIN COMPARISON: Lumbar spine 04/24/2021 TECHNIQUE: Thin section axial imaging of the lumbar spine was performed. Sagittal and coronal recon struction images were generated and reviewed. All CT scans are performed using dose optimization technique as appropriate and may include automated exposure control or mA/KV adjustment according to patient size. FINDINGS: Lumbar bodies maintain height when compared to prior imaging. There is a minimal right con vex scoliotic curvature. No changes in alignment or positioning of the vertebrae since the April 2021 comparison. Pedicle screws and rods are in place L3- L5. No hardware fracture. Advanced disc space narrowing noted at T12-L1 and L5-S1. These are stable. No paraspinal soft tissue mass has developed. Extensive postsurgical changes are noted in the lower lumbar spine. Scar tissue i s seen along the posterior aspect of the decompressed canal from lower L3 the upper L5 level. Central canal detail is inherently limited on CT imaging and further limited due to spray artifact fr om the L3-L5 surgical hardware. L2-3 disc bulge, ligamentous thickening and facet hypertrophy cause central spinal stenosis to approx imately 8 mm. This matches the comparison. Foraminal stenosis changes are present and stable. No mariano s changes to the central canal in the L3-S1 region. Aortoiliac atherosclerotic calcifications are present. No abnormal periaortic lymphadenopathy. SI joint degenerative changes are present. No acute sacral ala finding. IMPRESSION: Patient has advanced lumbar spine degenerative changes along with extensive L3- L5 surgi birdie change. No compression fracture or acute vertebral body finding. No new or progressive disc finding from prio r imaging. Central canal detail is inherently limited. No gross evidence for a change to the central canal or ex it foramina since April 2021.
[2022-01-16] MEDS ORDERED: dexAMETHasone 10 MG/ML VIAL ONE (14:28)
--- NOTE | 2022-01-16 14:30 | ER ---
Nurse's Notes [facility] Name: Demetrius Sarmiento Age: 81 yrs Sex: Male : 1940 Arrival Date: 01/16/2022 Time: 12:06 Bed 26 Private MD: Diagnosis: Sciatica, left side;Unspecified kidney failure-insufficency;Type 1 diabetes mellitus with hyperglycemia Presentation: 01/16 12:18 Chief complaint: Patient states: Low back pain off/on for years. Worse than usual today ll1 so he drove himself here to see a back doctor. Pain radiates down L leg. No new trauma or falls. Coronavirus screen: Vaccine status: Patient reports receiving the 2nd dose of the covid vaccine. Client denies travel out of the [place] in the last 14 days. At this time, the client does not indicate any symptoms associated with coronavirus-19. Ebola Screen: Patient denies travel to an Ebola-affected area in the 21 days before illness onset. Initial Sepsis Screen: Does the patient meet any 2 criteria? No. Patient's initial sepsis screen is negative. Does the patient have a suspected source of infection? Yes: Bone or joint infection. Risk Assessment: Do you want to hurt yourself or someone else? Patient reports no desire to harm self or others. Onset of symptoms was January 16, 2021. 12:18 Method Of Arrival: Wheelchair ll1 12:18 Acuity: LANCE 3 ll1 Triage Assessment: 12:19 General: Appears uncomfortable, Behavior is calm, cooperative, appropriate for age. ll1 Pain: Complains of pain in low back Pain radiates to left leg Aggravated by increased activity. Musculoskeletal: Reports pain in low back. Historical: - Allergies: 12:17 No Known Allergies; ll1 - PMHx: 12:17 Diabetes - IDDM; High Cholesterol; Chronic pain; chronic kidney disease; CHF; cardiac ll1 arrest; Hypertension; CAD; Myocardial infarction; - PSHx: 12:17 4 heart stents; ll1 - Immunization history:: Client reports receiving the 2nd dose of the Covid vaccine. - Social history:: Smoking status: Patient denies any tobacco usage or history of. - Family history:: not pertinent. Screenin:45 Abuse screen: Denies threats or abuse. Denies injuries from another. Nutritional ab2 screening: No deficits noted. Tuberculosis screening: No symptoms or risk factors identified. Fall Risk None identified. Assessment: 12:45 General: Appears in no apparent distress. uncomfortable, Behavior is calm, cooperative, ab2 appropriate for age. Pain: Complains of pain in back. 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 Gait is steady. Cardiovascular: No deficits noted. Denies chest pain, shortness of breath, Patient's skin is warm and dry. Chest pain is denied. Respiratory: Airway is patent Respiratory effort is even, unlabored, Respiratory pattern is regular, symmetrical, Breath sounds are diminished. GI: No deficits noted. No signs and/or symptoms were reported involving the gastrointestinal system. Abdomen is round non-distended, Bowel sounds present X 4 quads. : No deficits noted. No signs and/or symptoms were reported regarding the genitourinary system. Derm: No deficits noted. No signs and/or symptoms reported regarding the dermatologic system. Skin is fragile, is thin. Vital Signs: 12:18 BP 139 / 69; Pulse 117; Resp 18; Temp 98.3; Pulse Ox 98% ; Weight 79.38 kg; Height 5 ll1 ft. 7 in. (170.18 cm); Pain 10/10; 12:46 BP 136 / 80; Pulse 101; Resp 16; Pulse Ox 100% on R/A; Pain 10/10; ab2 13:18 BP 145 / 95; Pulse 99; Resp 18; Pulse Ox 99% on R/A; Pain 10/10; ab2 14:57 BP 146 / 65; Pulse 79; Resp 16; Pulse Ox 99% on R/A; ab2 12:18 Body Mass Index 27.41 (79.38 kg, 170.18 cm) ll1 ED Course: 12:06 Patient arrived in ED. mr 12:11 Richy Kwan is Primary Nurse. ab2 12:17 Arm band placed on Patient placed in an exam room, on a stretcher. ll1 12:19 Triage completed. ll1 12:46 Patient has correct armband on for positive identification. Bed in low position. Call ab2 light in reach. Side rails up X2. 12:46 No provider procedures requiring assistance completed. ab2 13:19 Michael Ortega MD is Attending Physician. tadeo 13:36 Inserted saline lock: 20 gauge in right antecubital area, using aseptic technique. ab2 Blood collected. 13:36 Basic Metabolic Panel Sent. ab2 13:36 Basic Metabolic Panel Sent. ab2 13:37 LFT's Sent. ab2 13:37 Magnesium Sent. ab2 13:37 NT PRO-BNP Sent. ab2 13:37 PT-INR Sent. ab2 13:37 Troponin HS Sent. ab2 13:57 CT Lumbar Spine Wo Con In Process Unspecified. EDMS 14:30 Bryn Gannon MD is Referral Physician. tadeo 14:31 XRAY Chest (1 view) In Process Unspecified. EDMS 14:56 IV discontinued, intact, bleeding controlled, No redness/swelling at site. Pressure ab2 dressing applied. Administered Medications: 13:35 Drug: NS 0.9% 1000 ml Route: IV; Rate: 125 ml/hr; Site: right antecubital; ab2 14:45 Follow up: Response: No adverse reaction ab2 14:57 Follow up: IV Status: Completed infusion ab2 13:36 Drug: morphine 2 mg Route: IVP; Site: right antecubital; ab2 14:45 Follow up: Response: No adverse reaction ab2 13:36 Drug: Zofran (Ondansetron) 4 mg Route: IVP; Site: right antecubital; ab2 14:28 Follow up: Response: No adverse reaction ab2 14:28 Drug: Decadron - Dexamethasone 10 mg Route: IVP; Site: right antecubital; ab2 14:45 Follow up: Response: No adverse reaction ab2 14:28 Drug: morphine 2 mg Route: IVP; Site: right antecubital; ab2 14:45 Drug: morphine 2 mg Route: IVP; Site: right antecubital; ab2 14:45 Follow up: Response: No adverse reaction ab2 Outcome: 14:30 Discharge ordered by . tadeo 14:56 Discharged to home via wheelchair. ab2 14:56 Condition: good 14:56 Discharge instructions given to patient, Instructed on discharge instructions, follow up and referral plans. medication usage, Demonstrated understanding of instructions, follow-up care, medications, Prescriptions given X 3. 14:57 Patient left the ED. ab2 Signatures: Dispatcher [employer] Michael Black MD MD cha Rivera, Kimani Dove RN RN ll1 Richy Kwan ab2
--- NOTE | 2022-01-16 14:30 | EDPHYS ---
Physician Documentation [facility] Name: Demetrius Sarmiento Age: 81 yrs Sex: Male : 1940 Arrival Date: 01/16/2022 Time: 12:06 Bed 26 Private MD: DEVIN Physician Michael Ortega HPI: 01/16 14:21 This 81 yrs old Male presents to ER via Wheelchair with complaints of Back Pain. tadeo 14:21 The patient presents with pain that is acute, with no known mechanism of injury. The tadeo symptoms are located in the low back. Onset: The symptoms/episode began/occurred 2 day(s) ago. The pain radiates to the left low back. Associated signs and symptoms: Pertinent positives: none Pertinent negatives: abdominal pain, urinary retention. The problem was sustained from unknown cause. Modifying factors: The patient symptoms are alleviated by remaining still, the patient symptoms are aggravated by movement. Severity of symptoms: At their worst the symptoms were moderate, in the emergency department the symptoms are unchanged. The patient has experienced similar episodes in the past, multiple times. Historical: - Allergies: 12:17 No Known Allergies; ll1 - PMHx: 12:17 Diabetes - IDDM; High Cholesterol; Chronic pain; chronic kidney disease; CHF; cardiac ll1 arrest; Hypertension; CAD; Myocardial infarction; - PSHx: 12:17 4 heart stents; ll1 - Immunization history:: Client reports receiving the 2nd dose of the Covid vaccine. - Social history:: Smoking status: Patient denies any tobacco usage or history of. - Family history:: not pertinent. ROS: 14:21 Constitutional: Negative for fever, chills, and weight loss, Eyes: Negative for injury, tadeo pain, redness, and discharge, ENT: Negative for injury, pain, and discharge, Neck: Negative for injury, pain, and swelling, Cardiovascular: Negative for chest pain, palpitations, and edema, Respiratory: Negative for shortness of breath, cough, wheezing, and pleuritic chest pain, Abdomen/GI: Negative for abdominal pain, nausea, vomiting, diarrhea, and constipation, : Negative for injury, bleeding, discharge, and swelling, MS/Extremity: Negative for injury and deformity, Skin: Negative for injury, rash, and discoloration, Neuro: Negative for headache, weakness, numbness, tingling, and seizure, Psych: Negative for depression, anxiety, suicide ideation, homicidal ideation, and hallucinations, Allergy/Immunology: Negative for hives, rash, and allergies, Endocrine: Negative for neck swelling, polydipsia, polyuria, polyphagia, and marked weight changes, Hematologic/Lymphatic: Negative for swollen nodes, abnormal bleeding, and unusual bruising. 14:21 Back: Positive for decreased range of motion, pain with movement, of the lumbar area and left low back. Exam: 14:21 Constitutional: This is a well developed, well nourished patient who is awake, alert, tadeo and in no acute distress. Head/Face: Normocephalic, atraumatic. Eyes: Pupils equal round and reactive to light, extra-ocular motions intact. Lids and lashes normal. Conjunctiva and sclera are non-icteric and not injected. Cornea within normal limits. Periorbital areas with no swelling, redness, or edema. ENT: Nares patent. No nasal discharge, no septal abnormalities noted. Tympanic membranes are normal and external auditory canals are clear. Oropharynx with no redness, swelling, or masses, exudates, or evidence of obstruction, uvula midline. Mucous membranes moist. Neck: Trachea midline, no thyromegaly or masses palpated, and no cervical lymphadenopathy. Supple, full range of motion without nuchal rigidity, or vertebral point tenderness. No Meningismus. Chest/axilla: Normal chest wall appearance and motion. Nontender with no deformity. No lesions are appreciated. Cardiovascular: Regular rate and rhythm with a normal S1 and S2. No gallops, murmurs, or rubs. Normal PMI, no JVD. No pulse deficits. Respiratory: Lungs have equal breath sounds bilaterally, clear to auscultation and percussion. No rales, rhonchi or wheezes noted. No increased work of breathing, no retractions or nasal flaring. Abdomen/GI: Soft, non-tender, with normal bowel sounds. No distension or tympany. No guarding or rebound. No evidence of tenderness throughout. Male : Normal genitalia with no discharge or lesions. Skin: Warm, dry with normal turgor. Normal color with no rashes, no lesions, and no evidence of cellulitis. MS/ Extremity: Pulses equal, no cyanosis. Neurovascular intact. Full, normal range of motion. Neuro: Awake and alert, GCS 15, oriented to person, place, time, and situation. Cranial nerves II-XII grossly intact. Motor strength 5/5 in all extremities. Sensory grossly intact. Cerebellar exam normal. Normal gait. Psych: Awake, alert, with orientation to person, place and time. Behavior, mood, and affect are within normal limits. 14:21 ECG was reviewed by the Attending Physician. 14:21 Back: pain, that is mild, ROM is decreased, normal spinal alignment noted, CVA tenderness, is absent, vertebral tenderness, is not appreciated. Vital Signs: 12:18 BP 139 / 69; Pulse 117; Resp 18; Temp 98.3; Pulse Ox 98% ; Weight 79.38 kg; Height 5 ll1 ft. 7 in. (170.18 cm); Pain 10/10; 12:46 BP 136 / 80; Pulse 101; Resp 16; Pulse Ox 100% on R/A; Pain 10/10; ab2 13:18 BP 145 / 95; Pulse 99; Resp 18; Pulse Ox 99% on R/A; Pain 10/10; ab2 14:57 BP 146 / 65; Pulse 79; Resp 16; Pulse Ox 99% on R/A; ab2 12:18 Body Mass Index 27.41 (79.38 kg, 170.18 cm) ll1 MDM: 13:19 Patient medically screened. tadeo 14:24 Differential diagnosis: Fracture Obesity Pyelonephritis Scoliosis sprain, vertebral tadeo fracture. Data reviewed: vital signs, nurses notes, lab test result(s), EKG, radiologic studies, CT scan, plain films. Data interpreted: community action worker: rate is 99 beats/min, rhythm is regular, Pulse oximetry: on room air is 99 %. Test interpretation: by ED physician or midlevel provider: ECG, plain radiologic studies. Counseling: I had a detailed discussion with the patient and/or guardian regarding: the historical points, exam findings, and any diagnostic results supporting the discharge/admit diagnosis, lab results. 01/16 13:21 Order name: Basic Metabolic Panel [facility] 01/16 13:21 Order name: CBC with Diff; Complete Time: 14:19 [facility] 01/16 13:21 Order name: LFT's [facility] 01/16 13:21 Order name: Magnesium [facility] 01/16 13:21 Order name: NT PRO-BNP [facility] 01/16 13:21 Order name: PT-INR; Complete Time: 14:19 [facility] 01/16 13:21 Order name: Troponin HS [facility] 01/16 13:21 Order name: XRAY Chest (1 view) [facility] 01/16 13:21 Order name: CT Lumbar Spine Wo Con; Complete Time: 14:30 [facility] 01/16 13:21 Order name: Basic Metabolic Panel EDMS 01/16 14:45 Order name: Urine Dipstick-Ancillary; Complete Time: 14:48 EDMS 01/16 13:21 Order name: EKG; Complete Time: 13:21 [facility] 01/16 13:21 Order name: Cardiac monitoring; Complete Time: 13:36 [facility] 01/16 13:21 Order name: EKG - Nurse/Tech; Complete Time: 14:28 [facility] 01/16 13:21 Order name: IV Saline Lock; Complete Time: 13:37 [facility] 01/16 13:21 Order name: Labs collected and sent; Complete Time: 13:37 [facility] 01/16 13:21 Order name: O2 Per Protocol; Complete Time: 13:37 [facility] 01/16 13:21 Order name: O2 Sat Monitoring; Complete Time: 13:37 [facility] 01/16 13:21 Order name: Urine Dipstick-Ancillary (obtain specimen); Complete Time: 14:45 tadeo EC:21 Rate is 90 beats/min. Rhythm is regular. QRS [place] is Normal. CO interval is normal. QRS tadeo interval is normal. QT interval is normal. No Q waves. T waves are Normal. No ST changes noted. Clinical impression: NSR w/ Non-specific ST/T Changes and No evidence of ischemia. Interpreted by me. Reviewed by me. Administered Medications: 13:35 Drug: NS 0.9% 1000 ml Route: IV; Rate: 125 ml/hr; Site: right antecubital; ab2 14:45 Follow up: Response: No adverse reaction ab2 14:57 Follow up: IV Status: Completed infusion ab2 13:36 Drug: morphine 2 mg Route: IVP; Site: right antecubital; ab2 14:45 Follow up: Response: No adverse reaction ab2 13:36 Drug: Zofran (Ondansetron) 4 mg Route: IVP; Site: right antecubital; ab2 14:28 Follow up: Response: No adverse reaction ab2 14:28 Drug: Decadron - Dexamethasone 10 mg Route: IVP; Site: right antecubital; ab2 14:45 Follow up: Response: No adverse reaction ab2 14:28 Drug: morphine 2 mg Route: IVP; Site: right antecubital; ab2 14:45 Drug: morphine 2 mg Route: IVP; Site: right antecubital; ab2 14:45 Follow up: Response: No adverse reaction ab2 Disposition Summary: 01/16/22 14:30 Discharge Ordered Location: Home [facility] Problem: new tadeo Symptoms: have improved tadeo Condition: Stable tadeo Diagnosis - Sciatica, left side tadeo - Unspecified kidney failure - insufficency tadeo - Type 1 diabetes mellitus with hyperglycemia tdaeo Followup: tadeo - With: Private Physician - When: 2 - 3 days - Reason: Recheck today's complaints, Continuance of care, Re-evaluation by your physician Followup: tadeo - With: - When: 2 - 3 days - Reason: Recheck today's complaints, Continuance of care, Re-evaluation by your physician Discharge Instructions: - Discharge Summary Sheet tadeo - Hyperglycemia tadeo - Sciatica tadeo - Hyperglycemia, [id number] tadeo - Chronic Kidney Disease, Adult, [id number] [facility] Forms: - Medication Reconciliation Form [facility] - Thank You Letter [facility] - Antibiotic Education [facility] - Prescription Opioid Use [facility] Prescriptions: - dexamethasone 2 mg Oral tablet - take 1 tablet by ORAL route 2 times per day; 10 tablet; Refills: 0, Product [facility] Selection Permitted - Tylenol-Codeine #3 300 mg-30 mg Oral - take 2 tablet by ORAL route every 6 hours; 20 tablet; Refills: 0, Product [facility] Selection Permitted - Cyclobenzaprine 5 mg Oral Tablet - take 1 tablet by ORAL route 3 times per day As needed; 15 tablet; Refills: 0, [facility] Product Selection Permitted Signatures: Dispatcher [employer] Micahel Black MD MD cha Lewis, Lynsay, RN RN ll1 Richy Kwan ab2
[2022-01-16 14:45] LABS: Urine Blood Negative (Negative); Urine Glucose 3+ (Negative); Urine Protein 1+ (Negative)
[2022-01-16 15:03] LABS: Albumin 3.6 g/dL (3.4-5.0); Bilirubin Direct 0.3 mg/dL (0-0.2); Protein, Total 7.3 g/dL (6.4-8.2)
[2022-01-16 15:08] LABS: Troponin High Sensitivity 82.7 pg/mL (<58.9)
--- NOTE | 2022-01-16 15:14 | RAD REPORT ---
EXAM DESCRIPTION: RAD - Chest Single View - 01/16/2022 2:31 pm CLINICAL HISTORY: COUGH COMPARISON: Portable 01/07/2022 TECHNIQUE: AP portable chest image was obtained 01/16/2022 2:31 pm . FINDINGS: Lungs are clear. Interstitial pattern matches comparison. Heart size is prominent but unch anged. No vascular engorgement or other findings of acute failure/ volume overload. No measurable pleural effusion and no pneumothorax. No acute bony abnormality seen. No acute aortic findings suspected. IMPRESSION: No acute cardiopulmonary process. No significant change from comparison study.
[2022-01-16 15:34] VITALS: TEMP 98.3
[2022-01-16 15:36] VITALS: O2SAT 99
[2022-01-16 15:38] VITALS: BP 146/65
--- NOTE | 2022-01-17 11:33 | EKG ---
Test Date: 2022-01-16 Test Time: 14:09:30 Assistant Fitness Manager: JOSÉ MEASUREMENT RESULTS: Intervals: Rate: 90 NM: 166 QRSD: 118 QT: 390 QTc: 477 [place]: P: 51 NM: 166 QRS: -58 T: 132 INTERPRETIVE STATEMENTS: Sinus rhythm with frequent premature ventricular complexes Left axis deviation Left ventricular hypertrophy with QRS widening T wave abnormality, consider lateral ischemia Prolonged QT Abnormal ECG Compared to ECG 01/07/2022 02:59:03 Prolonged QT interval now present T-wave abnormality still present Possible ischemia still present Electronically Signed On 01-17-22 11:29:13 PIT STEWARD by Gibson Davidson
== END 2022-01-16 14:57 | disposition home or self-care (01) ==
LOC: ER 12:01
DX: M54.32 Sciatica, left side (principal); E10.65 Type 1 diabetes mellitus with hyperglycemia; N19 Unspecified kidney failure; I10 Essential (primary) hypertension; Z95.818 Presence of other cardiac implants and grafts
CPT/HCPCS: 96361; 93005; 85025; 80048; 36415; 83735; 85610; 80076; 81003; 84484; 83880; 72131; 71045; 96375; 96374; 99284; J1100; J7030; J2405

== ENCOUNTER 2022-01-21 00:37 | Emergency (ER) | payer OTHER ==
--- OUTSIDE RECORDS SUMMARY | 2022-01-21 00:55 | XMS REPORT | Continuity of Care Document ---
:1940 Author Organization [facility] t Address [address] [place] [address] Care Team Providers Name Role Phone Andres [...] Type Policy Number Effective Date Expiration Date [facility] [id number] 2019 DUAL COMPLETE HMO 00:00:00 [place]ICAID OF [place] [id number] 2018 00:00:00 Problems Condition Condition Condition Status Onset Resolution Last Treating Co mments Source Name Details Category Date Date Treatment Clinician Date Unstable Unstable Disease Active Unive rs angina angina 5-07 ity of 00:00: [place] [facility] ALBA (acute ALBA (acute Disease Active 2020- U nivers kidney kidney 4-21 ity of injury) injury) 00:00: [place] [facility] Chest pain Chest pain Disease Active 2019- U nivers 4-21 ity of 00:00: [place] [facility] Chest pain Chest pain Disease Active 2020- U 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 4-15 it y of 00:00: [place] [facility] 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 00:00: [place] and and 00 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 2018-11 U nivers lobe lobe 1-06 ity of pneumonia pneumonia 00:00: [facility] 00 Medical Branch PNA PNA Disease Active 2018-11 Univers (pneumonia (pneumonia 0-25 it y of ) ) 00:00: [place] [facility] Acute on Acute on Disease Active 2018-11 Unive rs chronic chronic 0-25 ity of combined combined 00:00: [place] systolic systolic 00 Medica l and and Branch 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 Dyspnea Dyspnea Disease Active 2018-11 Univers 0-23 ity of 00:00: [place] [facility] CHF CHF Disease Active 2019 Univers exacerbati exacerbati 2-17 it y of on on 00:00: [place] [facility] Essential Essential Disease Active Uni vers hypertensi hypertensi 2-17 it y of on on 00:00: [place] [facility] 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 00:00: [place] without without 00 Medical complicati complicati Br anch on, on, without without long-term long-term current current use of use of insulin insulin CHF CHF Disease Active Univers exacerbati exacerbati 2-17 it y of on on 00:00: [place] [facility] Acute on Acute on Disease [...] 00:00: [place] involving involving 00 Medi birdie [place] 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 00:00: [place] disease disease 00 Medical Branch Coronary Coronary Disease Active Unive rs artery artery 1- ity of disease disease 00:00: [place] involving involving 00 Medi birdie [place] 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 [...] Allergie - Clear s 00:00: [place] 00 [facility] NO KNOWN Drug Active Univers ALLERGIE Class ity of S [facility] Social History Social Habit Start Date Stop Date Quantity Comments Source Exposure to [facility] University of SARS-CoV-2 (event) [facility] History of tobacco User of Univer sity of use smokeless [facility] tobacco [place] Alcohol intake 2021-10-31 2021-10-31 Current University of 00:00:00 00:00:00 non-drinker of [facility] alcohol Branch (finding) Cigarettes smoked 2018-12-11 2018-12-11 Univers ity of current (pack per 00:00:00 00:00:00 [facility] ) - Reported Branch Cigarette 2018-12-11 2018-12-11 University of pack-years 00:00:00 00:00:00 [facility] Tobacco use and 2018-12-11 2018-12-11 Former user Universi ty of exposure 00:00:00 00:00:00 [facility] Sex Ass[birth year] At [birth year] Universit y of 00:00:00 00:00:00 [facility] Smoking Status Start Date Stop Date Source Former smoker 2018-12-11 00:00:00 2018-12-11 00:00:00 [facility] Medications Ordered Filled Start Stop Current Ordering Indication Dosage Frequency Signature Comments Components Source Medication Medication Date Date Medication? Clinician (SIG) Name Name aspirin 81 2020-11- Yes [id number] 81mg Take 1 Univers mg chewable -12-04 tablet by it y of tablet 00:00: 05:59 mouth [place] 00 :00 daily for Medical 30 days. Branch clopidogreL 2020-11- Yes [id number] 75mg Take 1 Univers 75 mg -12-04 tablet by ity of tablet 00:00: 05:59 mouth [place] 00 :00 daily for Medical 30 days. Branch furosemide 2020-11- Yes [id number] 20mg Take 1 Univers 20 mg -12-04 tablet by ity of tablet 00:00: 05:59 mouth [place] 00 :00 daily for Medical 30 days. Branch aspirin 81 2020-11- Yes [id number] 81mg Take 1 Univers mg chewable 2-12-04 tablet by it y of tablet 00:00: 05:59 mouth [place] 00 :00 daily for Medical 30 days. Branch clopidogreL 2020-11- Yes [id number] 75mg Take 1 Univers 75 mg 2-12-04 tablet by ity of tablet 00:00: 05:59 mouth [place] 00 :00 daily for Medical 30 days. Branch furosemide 2020-11- Yes [id number] 20mg Take 1 Univers 20 mg 01-04 tablet by ity of tablet 00:00: 05:59 mouth [place] 00 :00 daily for Medical 30 days. Branch aspirin 81 2020-11- Yes [id number] 81mg Take 1 Univers mg chewable 01-04 tablet by it y of tablet 00:00: 05:59 mouth [place] 00 :00 daily for Medical 30 days. Branch clopidogreL 2020-11- Yes [id number] 75mg Take 1 Univers 75 mg 01-04 tablet by ity of tablet 00:00: 05:59 mouth [place] 00 :00 daily for Medical 30 days. Branch furosemide 2020-11- Yes [id number] 20mg Take 1 Univers 20 mg 01-04 [...] by mouth ity of 14:14: 00:00 daily. [place] 53 :00 Medical Branch isosorbide 2020-11 Yes 60mg 60 mg, Unive rs mononitrate 2-18 Oral, BID, it y of (IMDUR) 24 14:00: First dose [place] hr tablet 00 (after Medical 60 mg last Branch modificati on) on 11/02/21 at 0800, Until Discontinu ed, Routine QUEtiapine 2020-11 Yes [id number] 25mg Take 1 Univers 25 mg 2-18 tablet by ity of tablet 00:00: mouth at [place] [address] bedtime as Medical needed Branch (agitation /insomnia) . QUEtiapine 2020-11 Yes [id number] 25mg Take 1 Univers 25 mg 2-18 tablet by ity of tablet 00:00: mouth at [place] 00 bedtime as Medical needed Branch (agitation /insomnia) . QUEtiapine 2020-11 Yes [id number] 25mg Take 1 Univers 25 mg 2-18 tablet by ity of tablet 00:00: mouth at [place] 00 bedtime as Medical needed Branch (agitation /insomnia) . isosorbide 2020-11- Yes [id number] 60mg Take 1 Univers mononitrate 2-18 -18 tablet by it y of 60 mg 24 hr 00:00: 05:59 mouth 2 [place] tablet 00 :00 (two) Medical times Branch daily for 30 days. metoprolol 2020-11- Yes [id number] 37.5mg Take 1.5 Univers succinate 2-18 -18 tablets by ity of XL 25 mg 24 00:00: 05:59 mouth 2 [place] hr tablet 00 :00 (two) Medical times Branch daily for 30 days. isosorbide 2020-11- Yes [id number] 60mg Take 1 Univers mononitrate 2-18 01-18 tablet by it y of 60 mg 24 hr 00:00: 05:59 mouth 2 [place] tablet 00 :00 (two) Medical times Branch daily for 30 days. metoprolol 2020-11- Yes [id number] 37.5mg Take 1.5 Univers succinate 2-18 -18 tablets by ity of XL 25 mg 24 00:00: 05:59 mouth 2 [place] hr tablet 00 :00 (two) Medical times Branch daily for 30 days. isosorbide 2020-11- Yes [id number] 60mg Take 1 Univers mononitrate 01-03 tablet by it y of 60 mg 24 hr 00:00: 05:59 mouth 2 [place] tablet 00 :00 (two) Medical times Branch daily for 30 days. metoprolol 2020-11- Yes [id number] 37.5mg Take 1.5 Univers succinate 01-03 tablets [...] First dose [place] mg 00 on [facility] Medical 10/31/21 Branch at 2100, Until Discontinu ed, Routine clopidogreL 2020-11 Yes 75mg 75 mg, Univ ers (PLAVIX) 2-16 Oral, ity of tablet 75 23:30: DAILY, [place] mg 00 First dose Medical on [facility] Branch 10/31/21 at 1730, Until Discontinu ed, Routine sulfur 2020-11- No [id number] 5mL 5 mL, Unive rs hexafluorid 01-01 Intravenou i ty of e microsphr 17:00: 17:00 s, ONCE, 1 [place] (LUMASON) 00 :00 dose, On Medica l injection 5 [facility] Branch mL 10/31/21 at 1100, Routine
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 Branch 10/31/21 at 0900, Until Discontinu ed, Routine Sliding 2020-11 Yes Subcutaneo [facility] ers Scale - , AC+HS, ity of Insulin-Reg 13:30: First dose [place] ular + Fsbg 00 on [facility] Medica l Testing 10/31/21 Branch at 0730, Until Discontinu ed, Routine enoxaparin 2020-11- No 1mg/kg 80 mg Uni vers (LOVENOX) 01-01 (rounded ity o f injection 09:00: 14:17 from 78 mg [place] 80 mg 00 :35 = 1 mg/kg Medical ?78 kg), Branch Subcutaneo , Q24H, First dose on [facility] 10/31/21 at 0300, Until Discontinu ed, Routine aspirin 2020-11- No 325mg 325 mg, Unive rs tablet 325 01-01 Oral, ity of mg 08:45: 08:15 ONCE, 1 [place] 00 :00 dose, On Medical [facility] Branch 10/31/21 at 0245, Routine glucagon [...] IV Push, ity of mg 07:36: 05:31 [facility] [place] 09 :07 Starting Medical on Madhavi Branch [...] 2-16 IV Push, ity of (PF)) 05:32: Q6HPBoyds, [place] injection 4 10 Starting Medi birdie mg on Thu Branch 10/30/21 at 2332, Until Discontinu ed, Routine, Nausea and Vomiting (N/V) acetaminoph 2020-11 Yes 650mg 650 mg, Un mel en 2-16 Oral, ity of (TYLENOL) 05:31: Q6[place], [place] tablet 650 56 Starting Medic al mg on Thu Branch 10/30/21 at 2331, Until Discontinu ed, Routine, Pain (scale 1-3) acetaminoph 2020-11 Yes [id number] 1{tbl} 1 tablet, Univers en-codeine 2-16 Oral, ity of (TYLENOL 05:29: Q6HPRN, [place] #3) 300-30 29 Starting Medic al mg [...] ity of mg 23:15: 22:23 ONCE, 1 [place] 00 :00 dose, Madhavi Medical 04/25/21 at Branch 1815, STAT acetaminoph 2020- No 1{tbl} 1 tablet, Univers en-codeine 6-10 06-10 Oral, ity of (TYLENOL 19:00: 17:52 ONCE, 1 [place] #3) 300-30 00 :00 dose, Madhavi Medi birdie mg tablet 1 04/25/21 at Br anch tablet 1400, ADAMA cyclobenzap No 10mg 10 mg, Uni vers rine 6-10 06-10 Oral, ONCE ity of (FLEXERIL) 19:00: 17:52 NOW, 1 [place] tablet 10 00 :00 dose, Madhavi Medic al mg 04/25/21 at Branch 1400, ADAMA cyclobenzap Yes [id number] 5mg Take 1 Univers rine 5 mg 6-10 tablet by ity o f tablet 00:00: mouth 3 [place] [address] (three) Medical times [place] daily. cyclobenzap Yes [id number] 5mg Take 1 Univers rine 5 mg 6-10 tablet by ity o f tablet 00:00: mouth 3 [place] 00 (three) Medical times [place] daily. cyclobenzap Yes [id number] 5mg Take 1 Univers rine 5 mg [...] sided low back pain cyclobenzap 2020-0 Yes [id number] 5mg Take 1 Univers rine 5 mg [...] sided low back pain cyclobenzap 2020- Yes [id number] 5mg Take 1 Univers rine 5 mg [...] 00 First dose Medical on [facility] 03/24/20 at 0900, Until Discontinu ed, Routine MULTIVITAMI 2020-0 2020- No Take by U nivers N ORAL 5- 05-08 mouth. ity of 03:38: 00:00 [place] 54 :00 Medical Branch MULTIVITAMI 2020-0 Yes Take by Un mel N ORAL 5-09 mouth. ity of 02:01: [place] 35 [facility] atorvastati 2020-0 Yes 40mg 40 mg, Univ [...] Discontinu ed, Routine aspirin 81 2020-0 Yes [id number] 81mg Take 1 U nivers mg chewable 5-09 tablet by ity of tablet 00:00: mouth [place] 00 daily with Medical breakfast. Branch furosemide 2020-0 Yes [id number] 20mg Take 1 U nivers 20 mg 5-09 tablet by ity of tablet 00:00: mouth [place] 00 daily. Medical Branch aspirin 81 2020-0 Yes [id number] 81mg Take 1 U nivers mg chewable 5-09 tablet by ity of tablet 00:00: mouth [place] 00 daily with Medical breakfast. Branch furosemide 2020-0 Yes [id number] 20mg Take 1 U nivers 20 mg 5-09 tablet by ity of tablet 00:00: mouth [place] 00 daily. [facility] Branch aspirin 81 2020-0 Yes [id number] 81mg Take 1 U nivers mg chewable 5-09 tablet by ity of tablet 00:00: mouth [place] 00 daily with Medical breakfast. Branch furosemide 2020-0 Yes [id number] 20mg Take 1 U nivers 20 mg 5-09 tablet by ity of tablet 00:00: mouth [place] 00 daily. Medical Branch aspirin 81 2020-0 Yes [id number] 81mg Take 1 U nivers mg chewable 5-09 tablet by ity of tablet 00:00: mouth [place] 00 daily with Medical breakfast. Branch furosemide 2020-0 Yes [id number] 20mg Take 1 U nivers 20 mg 5-09 tablet by ity of tablet 00:00: mouth [place] 00 daily. Medical Branch aspirin 81 2020-0 Yes [id number] 81mg Take 1 U nivers mg chewable 5-09 tablet by ity of tablet 00:00: mouth [place] 00 daily with Medical breakfast. Branch furosemide 2020-0 Yes [id number] 20mg Take 1 U nivers 20 mg 5-09 tablet by ity of tablet 00:00: mouth [place] 00 daily. Medical Branch aspirin 81 2020-0 Yes [id number] 81mg Take 1 U nivers mg chewable 5-09 tablet by ity of tablet 00:00: mouth [place] 00 daily with Medical breakfast. Branch furosemide 2020-0 Yes [id number] 20mg Take 1 U nivers 20 mg 5-09 tablet by ity of tablet 00:00: mouth [place] 00 daily. Medical Branch aspirin 81 2020-0 Yes [id number] 81mg Take 1 U nivers mg chewable 5-09 tablet by ity of tablet 00:00: mouth [place] 00 daily with Medical breakfast. Branch furosemide 2020-0 Yes [id number] 20mg Take 1 U nivers 20 mg 5-09 tablet by ity of tablet 00:00: mouth [place] 00 daily. Medical Branch aspirin 81 2020-0 Yes [id number] 81mg Take 1 U nivers mg chewable 5-09 tablet by ity of tablet 00:00: mouth [place] 00 daily with Medical breakfast. Branch furosemide 2020-0 Yes [id number] 20mg Take 1 U nivers 20 mg 5-09 tablet by ity of tablet 00:00: mouth [place] 00 daily. Medical Branch aspirin 81 2020-0 Yes [id number] 81mg Take 1 U nivers mg chewable 5-09 tablet by ity of tablet 00:00: mouth [place] 00 daily with Medical breakfast. Branch furosemide 2020-0 Yes [id number] 20mg Take 1 U nivers 20 mg 5-09 tablet by ity of tablet 00:00: mouth [place] 00 daily. Medical Branch aspirin 81 2019-2020- No [id number] 81mg Take 1 Univers mg chewable 03-24 tablet by it y of tablet 00:00: 00:00 mouth [place] 00 :00 daily with Medical breakfast. Branch furosemide 2019-2020- No [id number] 20mg Take 1 Univers 20 mg 03-24 tablet by ity of tablet 00:00: 00:00 mouth [place] 00 :00 daily. Medical Branch isosorbide 2019-2019- No [id number] 90mg Take 3 Univers mononitrate 03-24-08 tablets by i ty of 30 mg 24 hr 00:00: 00:00 [place] tablet 00 :00 daily. Medical Branch isosorbide 2019-2019- No [id number] 90mg Take 3 Univers mononitrate 03-24-08 tablets by i ty of 30 mg 24 hr 00:00: 00:00 [place] tablet 00 :00 daily. Medical Branch maalox/lido 2020-0 2020- No 5mL 5 mL, [facility] 2 03-23 05-08 Oral, ity of %viscous 20:45: 20:56 ONCE, 1 [place] 1:1 00 :00 dose, Fri Medical suspension 03/23/20 at [facility] (COMPOUNDED 1545, ) Routine maalox/lido 2020-0 2020- No 5mL 5 mL, [facility] 2 03-23 05-08 Oral, ity of %viscous 20:45: 20:56 ONCE, [place] 1: 00 :00 dose, Fri Medical suspension 03/23/20 at [facility] (COMPOUNDED 1545, ) Routine acetaminoph 2020-0 Yes [...] IV Push, ity of mg 07:59: Q4HPRN, [place] [address] Starting Medical [facility] 03/23/20 Branch at 0259, Until Discontinu ed, Routine, Chest pain morpHINE 2020-0 Yes 2mg 2 mg, Slow Uni vers injection 2 -08 IV Push, ity of mg 07:59: Q4HPRN, [place] [address] Starting Medical [facility] 03/23/20 Branch at 0259, Until Discontinu [...] Fri Medi birdie (4 %) 03/23/20 at [place] infusion 2 0245, g Routine KCL 2020-0 [...] of 10 mL with 04:01: 00:00 intravenou [place] sodium 03 :00 sly once Medical chloride now. Branch 2.5 mEq/mL SolP 17.125 mEq acetaminoph 2020-0 Yes 650mg 650 mg, Un mel en 03-23 Oral, ity of (TYLENOL) 02:51: Q6HPRN, [place] tablet 650 29 Starting Medic al mg [facility] 03/22/20 Branch at 2151, Until Discontinu ed, Routine, Pain (scale 1-3) acetaminoph 2020-0 Yes 650mg 650 mg, Un mel en 03-23 Oral, ity of (TYLENOL) 02:51: Q6HPRN, [place] tablet 650 29 Starting Medic al mg [facility] 03/22/20 Branch at 2151, Until Discontinu ed, Routine, Pain (scale 1-3) nitroglycer 2020-0 Yes .4mg 0.4 mg, Uni vers in 03-23 Sublingual ity of (NITROSTAT) 02:38: , Q5MIN [place] as sublingual 00 PRN, 3 Medical tablet 0.4 doses, Branch mg Starting [facility] 03/22/20 at 2138, Until Discontinu ed, ADAMA, Chest pain nitroglycer 2020-0 Yes .4mg 0.4 mg, Uni vers in 03-23 Sublingual ity of (NITROSTAT) 02:38: , Q5MIN [place] as sublingual 00 PRN, 3 Medical tablet 0.4 doses, Branch mg Starting [facility] 03/22/20 at 2138, Until Discontinu ed, [...] 1 [place] as mg 00 :00 dose, [facility] 03/22/20 at Branch 2145, ADAMA isosorbide 2020-0 Yes [id number] 90mg Take 1.5 Univers mononitrate 5-08 tablets by it y of 60 mg 24 hr 00:00: mouth [place] tablet 00 daily. [facility] isosorbide 2020-0 Yes [id number] 90mg Take 1.5 Univers mononitrate 5-08 tablets by it y of 60 mg 24 hr 00:00: mouth [place] tablet 00 daily. [facility] isosorbide 2020-0 Yes [id number] 90mg Take 1.5 Univers mononitrate 5-08 tablets by it y of 60 mg 24 hr 00:00: mouth [place] tablet 00 daily. [facility] isosorbide 2020-0 Yes [id number] 90mg Take 1.5 Univers mononitrate 5-08 tablets by it y of 60 mg 24 hr 00:00: mouth [place] tablet 00 daily. [facility] isosorbide 2020-0 Yes [id number] 90mg Take 1.5 Univers mononitrate 5-08 tablets by it y of 60 mg 24 hr 00:00: mouth [place] tablet 00 daily. [facility] isosorbide 2020-0 Yes [id number] 90mg Take 1.5 Univers mononitrate 5-08 tablets by it y of 60 mg 24 hr 00:00: mouth [place] tablet 00 daily. [facility] isosorbide 2020-0 Yes [id number] 90mg Take 1.5 Univers mononitrate 5-08 tablets by it y of 60 mg 24 hr 00:00: mouth [place] tablet 00 daily. [facility] isosorbide 2020-0 Yes [id number] 90mg Take 1.5 Univers mononitrate 5-08 tablets by it y of 60 mg 24 hr 00:00: mouth [place] tablet 00 daily. [facility] isosorbide 2020-0 Yes [id number] 90mg Take 1.5 Univers mononitrate 5-08 tablets by it y of 60 mg 24 hr 00:00: mouth [place] tablet 00 daily. [facility] isosorbide 2020-0 2020- No [id number] 90mg Take 1.5 Univers mononitrate 5-08 12-18 tablets by i ty of 60 mg 24 hr 00:00: 00:00 mouth [place] tablet 00 :00 daily. Medical Branch acetaminoph 2020-0 2020- No [id number] 975mg Take 3 Univers en 325 mg 5-08 05-19 tablets by ity of tablet 00:00: 04:59 mouth [place] 00 :00 every 8 Medical (eight) Branch hours for 10 days. acetaminoph 2020-0 2020- No [id number] 975mg Take 3 Univers en 325 mg 5-08 05-19 tablets by ity of tablet 00:00: 04:59 mouth [place] 00 :00 every 8 Medical (eight) Branch hours for 10 days. acetaminoph 2020-0 2020- No [id number] 975mg Take 3 Univers en 325 mg 5-08 05-19 tablets by ity of tablet 00:00: 04:59 mouth [place] 00 :00 every 8 Medical (eight) Branch hours for 10 days. acetaminoph 2020-0 2020- No [id number] 975mg Take 3 Univers en 325 mg 5-08 05-19 tablets by ity of tablet 00:00: 04:59 mouth [place] 00 :00 every 8 Medical (eight) Branch hours for 10 days. acetaminoph 2020-0 2020- No [id number] 975mg Take 3 Univers en 325 mg 5-08 05-19 tablets by ity of tablet 00:00: 04:59 mouth [place] 00 :00 every 8 Medical (eight) Branch hours for 10 days. lidocaine 5 2019- No [id number] 1{patch Apply 1 Univers % (700 5-08 05-09 } Patch to ity of mg/patch) 00:00: 04:59 area(s) [place] patch 00 :00 once now Medical for 1 Branch dose. lidocaine 5 2020- No [id number] 1{patch Apply 1 Univers % (700 5-08 05-09 } Patch to ity of mg/patch) 00:00: 04:59 area(s) [place] patch 00 :00 once now Medical for 1 Branch dose. lidocaine 5 2020- No [id number] 1{patch Apply 1 Univers % (700 5-08 05-08 } Patch to ity of mg/patch) 00:00: 00:00 area(s) [place] patch 00 :00 once now Medical for 1 Branch dose. lidocaine 5 2019- No [id number] 1{patch Apply 1 Univers % (700 5-08 05-08 } Patch to ity of mg/patch) 00:00: 00:00 area(s) [place] patch 00 :00 once now Medical for 1 Branch dose. glipiZIDE Yes 5mg 5 mg, Univers (GLUCOTROL) 4-23 Oral, ity of tablet 5 mg 14:00: DAILY, [place] 00 First dose Medical on [facility] Branch 03/08/20 at 0900, Until Discontinu ed, Routine spironolact 2020- No [id number] 12.5mg Take 0.5 Univers one 25 mg 4-23 05-24 tablets by ity of tablet 00:00: 04:59 mouth [place] 00 :00 daily for Medical 30 days. Branch spironolact 2019- No [id number] 12.5mg Take 0.5 Univers one 25 mg 4-23 05-24 tablets by ity of tablet 00:00: 04:59 mouth [place] 00 :00 daily for Medical 30 days. Branch spironolact 2019- No [id number] 12.5mg Take 0.5 Univers one 25 mg 4-23 05-24 tablets by ity of tablet 00:00: 04:59 mouth [place] 00 :00 daily for Medical 30 days. Branch spironolact 2020- No [id number] 12.5mg Take 0.5 Univers one 25 mg 4-23 05-07 tablets by ity of tablet 00:00: 00:00 mouth [place] 00 :00 daily for Medical 30 days. Branch spironolact 2020- No [id number] 12.5mg Take 0.5 Univers one 25 mg [...] N ORAL - mouth. ity of 23:46: [place] 10 Medical Branch thiamine 2020-0 Yes 100mg [...] Discontinu ed, Routine, Insomnia Magnesium 2019-0 Yes [id number] 400mg Take 400 Univers Oxide 420 4-22 mg by ity of mg Tab 00:00: mouth [place] 00 daily. Medical Branch Insulin 2019-0 Yes [id number] 10U inject 10 Univers Glargine 4-22 Units ity of 100 unit/mL 00:00: under the [place] (3 mL) 00 skin at Medical injection bedtime. Branch temazepam 2019-0 Yes [id number] 15mg Take 1 Un mel 15 mg 4-22 capsule by ity of capsule 00:00: mouth at [place] 00 bedtime as Medical needed for Branch Insomnia. furosemide 2020-0 Yes [id number] 40mg Take 1 Univers 40 mg 4-22 tablet by ity of tablet 00:00: mouth [place] 00 every Medical morning Branch and evening. Magnesium 2020-0 Yes [id number] 400mg Take 400 Univers Oxide 420 4-22 mg by ity of mg Tab 00:00: mouth [place] 00 daily. Medical Branch potassium 2020-0 Yes [id number] 20meq Take 20 Univers chloride 20 4-22 mEq by ity of mEq packet 00:00: mouth [place] 00 daily. Medical Take with Branch lasix in the morning isosorbide 2020-0 Yes [id number] 15mg Take 0.5 Univers mononitrate 4-22 tablets by it y of 30 mg 24 hr 00:00: mouth [place] tablet 00 daily. Medical Hold if Branch systolic blood pressure less than 120 Insulin 2020-0 Yes [id number] 10U inject 10 Univers Glargine 4-22 Units ity of 100 unit/mL 00:00: under the [place] (3 mL) 00 skin at Medical injection bedtime. Branch temazepam 2020-0 Yes [id number] 15mg Take 1 Un mel 15 mg 4-22 capsule by ity of capsule 00:00: mouth at [place] 00 bedtime as Medical needed for Branch Insomnia. furosemide 2020-0 Yes [id number] 40mg Take 1 Univers 40 mg 4-22 tablet by ity of tablet 00:00: mouth [place] 00 every Medical morning Branch and evening. Magnesium 2020-0 Yes [id number] 400mg Take 400 Univers Oxide 420 4-22 mg by ity of mg Tab 00:00: mouth [place] 00 daily. Medical Branch potassium 2020-0 Yes [id number] 20meq Take 20 Univers chloride 20 4-22 mEq by ity of mEq packet 00:00: mouth [place] 00 daily. Medical Take with Branch lasix in the morning isosorbide 2020-0 Yes [id number] 15mg Take 0.5 Univers mononitrate 4-22 tablets by it y of 30 mg 24 hr 00:00: mouth [place] tablet 00 daily. Medical Hold if Branch systolic blood pressure less than 120 Insulin 2020-0 Yes [id number] 10U inject 10 Univers Glargine 4-22 Units ity of 100 unit/mL 00:00: under the [place] (3 mL) 00 skin at Medical injection bedtime. Branch temazepam 2020-0 Yes [id number] 15mg Take 1 Un mel 15 mg 4-22 capsule by ity of capsule 00:00: mouth at [place] 00 bedtime as Medical needed for Branch Insomnia. furosemide 2020-0 Yes [id number] 40mg Take 1 Univers 40 mg 4-22 tablet by ity of tablet 00:00: mouth [place] 00 every Medical morning Branch and evening. Magnesium 2020-0 Yes [id number] 400mg Take 400 Univers Oxide 420 4-22 mg by ity of mg Tab 00:00: mouth [place] 00 daily. Medical Branch potassium 2020-0 Yes [id number] 20meq Take 20 Univers chloride 20 4-22 mEq by ity of mEq packet 00:00: mouth [place] 00 daily. Medical Take with Branch lasix in the morning isosorbide 2020-0 Yes [id number] 15mg Take 0.5 [facility] mononitrate 4-22 tablets by it y of 30 mg 24 hr 00:00: mouth [place] tablet 00 daily. Medical Hold if Branch systolic blood pressure less than 120 Insulin 2020-0 Yes [id number] 10U inject 10 [facility] Glargine 4-22 Units ity of 100 unit/mL 00:00: under the [place] (3 mL) 00 skin at Medical injection bedtime. Branch vitamin 2019-0 2020- No [id number] 1000ug Take 1 [facility] B-12 1,000 4-22 07-22 tablet by ity of mcg tablet 00:00: 04:59 mouth [place] 00 :00 daily for Medical 90 days. Branch vitamin 2019-0 2020- No [id number] 1000ug Take 1 [facility] B-12 1,000 4-22 07-22 tablet by ity of mcg tablet 00:00: 04:59 mouth [place] 00 :00 daily for Medical 90 days. Branch vitamin 2020-0 2020- No [id number] 1000ug Take 1 [facility] B-12 1,000 4-22 07-22 tablet by ity of mcg tablet 00:00: 04:59 mouth [place] 00 :00 daily for Medical 90 days. Branch vitamin 2019-0 2020- No [id number] 1000ug Take 1 [facility] B-12 1,000 4-22 07-22 tablet by ity of mcg tablet 00:00: 04:59 mouth [place] 00 :00 daily for Medical 90 days. Branch glipiZIDE 5 2020- No [id number] 2.5mg Take 0.5 [facility] mg tablet 03-07-23 tablets by ity of 00:00: 04:59 mouth 2 [place] 00 :00 (two) Medical times Branch daily before breakfast and dinner for 30 days. metoprolol 2019- 2020- No [id number] 25mg Take 1 [facility] succinate - 05-23 tablet by ity of XL 25 mg 24 00:00: 04:59 mouth 2 [place] hr tablet 00 :00 (two) Medical times Branch daily for 30 days. OLANZapine 2019- 2020- No [id number] 2.5mg Take 1 [facility] 2.5 mg -06 04-23 tablet by ity of tablet 00:00: 04:59 mouth at [place] 00 :00 bedtime Medical for 30 Branch days. ranolazine 2019- 2020- No [id number] 1000mg Take 2 [facility] 500 mg 12 -06 04-23 tablets by ity of hr tablet 00:00: 04:59 mouth [place] 00 :00 every 12 Medical (twelve) Branch hours for 30 days. aspirin 81 2019- 2020- No [id number] 81mg Take 1 [facility] mg chewable -06 04-23 tablet by it y of tablet 00:00: 04:59 mouth [place] 00 :00 daily with Medical breakfast Branch for 30 days. atorvastati 2019- 2020- No [id number] 40mg Take 1 [facility] n 40 mg -06 04-23 tablet by ity of tablet 00:00: 04:59 mouth at [place] 00 :00 bedtime Medical for 30 Branch days. glipiZIDE 5 2020- No [id number] 2.5mg Take 0.5 [facility] mg tablet 03-07-23 tablets by ity of 00:00: 04:59 mouth 2 [place] 00 :00 (two) Medical times Branch daily before breakfast and dinner for 30 days. metoprolol 2019- 2020- No [id number] 25mg Take 1 [facility] succinate 4- 05-23 tablet by ity of XL 25 mg 24 00:00: 04:59 mouth 2 [place] hr tablet 00 :00 (two) Medical times Branch daily for 30 days. OLANZapine 2019- 2020- No [id number] 2.5mg Take 1 [facility] 2.5 mg 4-22 05-23 tablet by ity of tablet 00:00: 04:59 mouth at [place] 00 :00 bedtime Medical for 30 Branch days. ranolazine 2020-0 2020- No [id number] 1000mg Take 2 [facility] 500 mg 12 4-22 05-23 tablets by ity of hr tablet 00:00: 04:59 mouth [place] 00 :00 every 12 Medical (twelve) Branch hours for 30 days. aspirin 81 2019-0 2020- No [id number] 81mg Take 1 [facility] mg chewable 4-22 05-23 tablet by it y of tablet 00:00: 04:59 mouth [place] 00 :00 daily with Medical breakfast Branch for 30 days. atorvastati 2019-0 2020- No [id number] 40mg Take 1 [facility] n 40 mg 4-22 05-23 tablet by ity of tablet 00:00: 04:59 mouth at [place] 00 :00 bedtime Medical for 30 Branch days. glipiZIDE 5 2019-0 2020- No [id number] 2.5mg Take 0.5 [facility] mg tablet 4- 05-23 tablets by ity of 00:00: 04:59 mouth 2 [place] 00 :00 (two) Medical times Branch daily before breakfast and dinner for 30 days. metoprolol 2019-0 2020- No [id number] 25mg Take 1 [facility] succinate 4-22 05-23 tablet by ity of XL 25 mg 24 00:00: 04:59 mouth 2 [place] hr tablet 00 :00 (two) Medical times Branch daily for 30 days. OLANZapine 2020-0 2020- No [id number] 2.5mg Take 1 [facility] 2.5 mg 4-22 05-23 tablet by ity of tablet 00:00: 04:59 mouth at [place] 00 :00 bedtime Medical for 30 Branch days. ranolazine 2020-0 2020- No [id number] 1000mg Take 2 [facility] 500 mg 12 4-22 05-23 tablets by ity of hr tablet 00:00: 04:59 mouth [place] 00 :00 every 12 Medical (twelve) Branch hours for 30 days. aspirin 81 2020-0 2020- No [id number] 81mg Take 1 [facility] mg chewable 4-22 05-23 tablet by it y of tablet 00:00: 04:59 mouth [place] 00 :00 daily with Medical breakfast Branch for 30 days. atorvastati 2019- No [id number] 40mg Take 1 [facility] n 40 mg 03-07-23 tablet by ity of tablet 00:00: 04:59 mouth at [place] 00 :00 bedtime Medical for 30 Branch days. glipiZIDE 5 2019- No [id number] 2.5mg Take 0.5 [facility] mg tablet 03-07-23 tablets by ity of 00:00: 04:59 mouth 2 [place] 00 :00 (two) Medical times Branch daily before breakfast and dinner for 30 days. metoprolol 2019- No [id number] 25mg Take 1 [facility] succinate 03-07-23 tablet by ity of XL 25 mg 24 00:00: 04:59 mouth 2 [place] hr tablet 00 :00 (two) Medical times Branch daily for 30 days. ranolazine 2019- No [id number] 1000mg Take 2 [facility] 500 mg 12 03-07-23 tablets by ity of hr tablet 00:00: 04:59 mouth [place] 00 :00 every 12 Medical (twelve) Branch hours for 30 days. atorvastati 2019- No [id number] 40mg Take 1 [facility] n 40 mg 03-07-23 tablet by ity of tablet 00:00: 04:59 mouth at [place] 00 :00 bedtime Medical for 30 Branch days. furosemide 2019- No [id number] 40mg Take 1 [facility] 40 mg -06 04-08 tablet by ity of tablet 00:00: 00:00 mouth [place] 00 :00 every Medical morning Branch and evening. aspirin 81 2019- No [id number] 81mg Take 1 [facility] mg chewable - 05-08 tablet by it y of tablet 00:00: 00:00 mouth [place] 00 :00 daily with Medical breakfast Branch for 30 days. isosorbide 2020- No [id number] 15mg Take 0.5 [facility] mononitrate -06 04-08 tablets by i ty of 30 mg 24 hr 00:00: 00:00 mouth [place] tablet 00 :00 daily. Medical Hold if Branch systolic blood pressure less than 120 Insulin 2019- No [id number] 10U inject 10 [facility] Glargine - 05-08 Units ity of 100 unit/mL 00:00: 00:00 under the [place] (3 mL) 00 :00 skin at Medical injection bedtime. Branch glipiZIDE 5 2020- No [id number] 2.5mg Take 0.5 [facility] mg tablet 03-07 05-08 tablets by ity of 00:00: 00:00 mouth 2 [place] 00 :00 (two) Medical times Branch daily before breakfast and dinner for 30 days. metoprolol 2019- 2020- No [id number] 25mg Take 1 [facility] succinate - 05-08 tablet by ity of XL 25 mg 24 00:00: 00:00 mouth 2 [place] hr tablet 00 :00 (two) Medical times Branch daily for 30 days. ranolazine 2019- 2020- No [id number] 1000mg Take 2 [facility] 500 mg 12 - 05-08 tablets by ity of hr tablet 00:00: 00:00 mouth [place] 00 :00 every 12 Medical (twelve) Branch hours for 30 days. furosemide 2019- 2020- No [id number] 40mg Take 1 [facility] 40 mg -06 04-08 tablet by ity of tablet 00:00: 00:00 mouth [place] 00 :00 every Medical morning Branch and evening. aspirin 81 2019-2019- No [id number] 81mg Take 1 [facility] mg chewable - 05-08 tablet by it y of tablet 00:00: 00:00 mouth [place] 00 :00 daily with Medical breakfast Branch for 30 days. atorvastati 2019- 2020- No [id number] 40mg Take 1 [facility] n 40 mg - 05-08 tablet by ity of tablet 00:00: 00:00 mouth at [place] 00 :00 bedtime Medical for 30 Branch days. Magnesium 2019- 2020- No [id number] 400mg Take 400 [facility] Oxide 420 - 05-08 mg by ity of mg Tab 00:00: 00:00 mouth [place] 00 :00 daily. Medical Branch vitamin 2019- 2020- No [id number] 1000ug Take 1 [facility] B-12 1,000 - 05-08 tablet by ity of mcg tablet 00:00: 00:00 mouth [place] 00 :00 daily for Medical 90 days. Branch isosorbide 2019- 2020- No [id number] 15mg Take 0.5 [facility] mononitrate -22 05-08 tablets by i ty of 30 mg 24 hr 00:00: 00:00 mouth [place] tablet 00 :00 daily. Medical Hold if Branch systolic blood pressure less than 120 OLANZapine 2019- 2020- No [id number] 2.5mg Take 1 [facility] 2.5 mg - 05-07 tablet by ity of tablet 00:00: 00:00 mouth at [place] 00 :00 bedtime Medical for 30 Branch days. temazepam 2019- 2020- No [id number] 15mg Take 1 U nivers 15 mg 03-07 05-07 capsule by ity of capsule 00:00: 00:00 mouth at [place] 00 :00 bedtime as Medical needed for Branch Insomnia. potassium 2019- 2020- No [id number] 20meq Take 20 [facility] chloride 20 -22 05-07 mEq by ity o f mEq packet 00:00: 00:00 mouth [place] 00 :00 daily. Medical Take with Branch lasix in the morning OLANZapine 2019-2019- No [id number] 2.5mg Take 1 [facility] 2.5 mg 03-07-07 tablet by ity of tablet 00:00: 00:00 mouth at [place] 00 :00 bedtime Medical for 30 Branch days. temazepam 2019-2019- No [id number] 15mg Take 1 U nivers 15 mg - 05-07 capsule by ity of capsule 00:00: 00:00 mouth at [place] 00 :00 bedtime as Medical needed for Branch Insomnia. potassium 2019- 2020- No [id number] 20meq Take 20 [facility] chloride 20 -22 05-07 mEq by ity o f mEq packet 00:00: 00:00 mouth [place] 00 :00 daily. Medical Take with Branch lasix in the morning isosorbide 2019-2019- No 60mg 60 mg, Univ ers mononitrate - 04-21 Oral, ity of (IMDUR) 24 14:00: 13:43 DAILY, [place] hr tablet 00 :56 First dose Medi birdie 60 mg on Thu [place] 03/06/20 at 0900, Until Discontinu ed, Routine OLANZapine 2019- Yes 2.5mg 2.5 mg, Uni vers (ZyPREXA) 4-21 Oral, QHS, ity of tablet 2.5 02:00: First dose [place] mg 00 on [facility] 03/05/20 at Branch 2100, Until Discontinu ed, Routine insulin 2020-0 Yes 10U 10 Units, Unive rs glargine 4-21 Subcutaneo ity o f (LANTUS 02:00: us, QHS, [place] U-100) 00 First dose Medical injection on [facility] Branch 10 Units 03/05/20 at 2100, Until Discontinu ed, Routine donepezil 2020-0 Yes 5mg 5 mg, Univers (ARICEPT) 4-21 Oral, QHS, ity of tablet 5 mg 02:00: First dose [place] 00 on [facility] 03/05/20 at Branch 2100, Until Discontinu ed, Routine atorvastati 2020-0 Yes 40mg 40 mg, Univ ers n (LIPITOR) 4-21 Oral, QHS, it y of tablet 40 02:00: First dose [place] mg 00 on [facility] 03/05/20 at Branch 2100, Until Discontinu ed, Routine isosorbide 2020-0 2020- No 30mg 30 mg, Univ ers mononitrate 03-05-20 Oral, ity of (IMDUR) 24 15:30: 15:21 ONCE, 1 [place] hr tablet 00 :00 dose, [facility] Medic al 30 mg 03/05/20 at Branch 1030, Routine spironolact 2020-0 Yes 12.5mg 12.5 mg, [facility] one 4-20 Oral, ity of (ALDACTONE) 14:00: DAILY, [place] tablet 12.5 00 First dose Me dical mg on [facility] 03/05/20 at 0900, Until Discontinu ed, Routine memantine 2020-0 Yes 10mg 10 mg, Univer s (NAMENDA) 4-20 Oral, ity of tablet 10 14:00: DAILY, [place] mg 00 First dose Medical on [facility] 03/05/20 at 0900, Until Discontinu ed, Routine
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 approving Restricted medication : MEGADC lisinopril 2020-0 2020- No 5mg 5 mg, Unive rs (PRINIVIL,Z 03-05-21 Oral, ity of ESTRIL) 14:00: 13:44 DAILY, [place] tablet 5 mg 00 :01 First dose Me dical on [facility] 03/05/20 at 0900, Until Discontinu [...] 500 mg 00 First dose Medical on [facility] 03/05/20 at 0800, Until Discontinu ed, Routine metoprolol 2020-0 Yes 25mg 25 mg, Unive rs succinate 4-20 Oral, BID, ity of XL (TOPROL 13:00: First dose [place] XL) tablet 00 on [facility] Medical 25 mg 03/05/20 at Branch 0800, Until Discontinu ed, Routine magnesium 2020-0 Yes 400mg 400 mg, Univ ers oxide 4-20 Oral, BID, ity of (MAG-OX 13:00: First [place] 400[place] tablet 00 on [facility] Medica l 400 mg 03/05/20 at Branch 0800, Until Discontinu ed, Routine aspirin 2020-0 Yes 81mg 81 mg, Univers chewable -20 Oral, QAM ity of tablet 81 13:00: WITH [place] mg 00 BREAKFAST, Medical First dose Branch on [facility] 03/05/20 at 0800, Until Discontinu ed, Routine Sliding 2020-0 Yes Subcutaneo Univ ers Scale 4-20 us, AC+HS, ity of Insulin-Reg 12:30: First dose [place] ular + Fsbg 00 on [facility] Medica l Testing 03/05/20 at Branch 0730, Until Discontinu ed, Routine glipiZIDE 2020-0 2020- No 5mg 5 mg, Univer s (GLUCOTROL) -20 04-22 Oral, ity of tablet 5 mg 12:30: 19:41 BIDAC, [place] 00 :44 First dose Medical on [facility] 03/05/20 at 0730, Until Discontinu [...] Starting Medica l 25 mL [facility] 03/04/20 at 2202, Until Discontinu ed, ADAMA, Blood Glucose < or = 70 mg/dL and patient is unable to swallow or has mental status changes. furosemide 2020-0 Yes 40mg 40 mg, Unive rs (LASIX) 4-20 Oral, ity of tablet 40 03:00: QAM+PM, [place] mg 00 First dose Medical on [facility] 03/04/20 at 2200, Until Discontinu ed, Routine cyanocobala 2020-0 Yes 1000ug 1,000 mcg, Univers min 4-20 Subcutaneo ity of (VITAMIN 03:00: [place], Q24H, [place] B12) 00 First dose Medical injection on [facility] 1,000 mcg 03/04/20 at 2200, Until Discontinu ed, Routine heparin 2020-0 Yes 5000U 5,000 [facility] (porcine) 4-20 Units, ity of injection 03:00: Subcutaneo [place] 5,000 Units 00 us, Q8H, Medi birdie First dose Branch on [place] 03/04/20 at 2200, Until Discontinu ed, Routine ondansetron 2020-0 Yes 4mg 4 mg, Slow Univers (ZOFRAN 4-20 IV Push, ity of (PF)) 02:34: Q6HPRN, [place] injection 4 40 Starting Medi birdie mg [facility] 03/04/20 at 2134, Until Discontinu ed, Routine, Nausea and Vomiting (N/V) traMADol 2020-0 2020- No 50mg 50 mg, Univer s (ULTRAM) 4-20 04-22 Oral, ity of tablet 50 02:34: 02:33 Q8HPRN, [place] mg 23 :23 Starting Medical [facility] 03/04/20 at 2134, Until 03/06/20 at 2133, Routine, Pain (scale 4-6) acetaminoph 2020-0 Yes 650mg 650 mg, Un mel en 4-20 Oral, ity of (TYLENOL) 02:34: Q6HPRN, [place] tablet 650 20 Starting Medic al mg [place] Branch 03/04/20 at 2134, Until Discontinu ed, Routine, Pain (scale 1-3) lisinopril 2020-0 Yes [id number] 5mg Take 1 [facility] 5 mg tablet 4-18 tablet by ity of 00:00: mouth [place] 00 daily. Medical Branch isosorbide 2020-0 Yes [id number] 30mg Take 1 [facility] mononitrate 4-18 tablet by ity of 30 mg 24 hr 00:00: mouth [place] tablet 00 daily. Medical Branch lisinopril 2020-0 Yes [id number] 5mg Take 1 [facility] 5 mg tablet 4-18 tablet by ity of 00:00: mouth [place] 00 daily. Medical Branch isosorbide 2020-0 Yes [id number] 30mg Take 1 [facility] mononitrate 4-18 tablet by ity of 30 mg 24 hr 00:00: mouth [place] tablet 00 daily. Medical Branch lisinopril 2019-0 2020- No [id number] 5mg Take 1 [facility] 5 mg tablet 4-18 04-22 tablet by it y of 00:00: 00:00 mouth [place] 00 :00 daily. Medical Branch isosorbide 2019-0 2020- No [id number] 30mg Take 1 [facility] mononitrate 4-18 04-22 [...] N ORAL 4-17 mouth. ity of 17:34: [place] [address] Medical Branch thiamine 2020-0 Yes 100mg Take 100 Univ ers (VITAMIN 4-17 mg by ity of B-1) 100 mg 17:34: mouth [place] tablet 27 daily. Medical Branch aspirin 81 2020-0 Yes 81mg Take 81 mg U nivers mg chewable 4-17 by mouth ity of tablet 17:34: daily. [place] [address] Medical Branch atorvastati 2020-0 Yes 40mg Take 40 mg Univers n 40 mg 4-17 by mouth ity of tablet 17:34: at [place] [address] bedtime. Medical Branch NaCl 0.9% 2020-0 Yes [...] 4-17 mouth. ity of complex and 17:34: [place] C ( 27 Medical COMPLEX-VIT Branch RAZA C-FOLIC ACID ORAL) Cholecalcif 2020-0 Yes Take by Un mel ann, 4-17 mouth. ity of Vitamin D3, 17:34: [place] 2,000 unit 27 Medical capsule Branch metoprolol 2020-0 Yes 12.5mg Take 12.5 Univers tartrate 4-17 mg by ity of 12.5 mg 17:34: mouth 2 [place] 27 (two) Medical times Branch daily. MULTIVITAMI 2020-0 Yes Take by Un mel N ORAL 4-17 mouth. ity of 17:34: [place] [address] Medical Branch thiamine 2020-0 Yes 100mg Take 100 Univ ers (VITAMIN 4-17 mg by ity of B-1) 100 mg 17:34: mouth [place] tablet 27 daily. Medical Branch aspirin 81 2020-0 Yes 81mg Take 81 mg U nivers mg chewable 4-17 by mouth ity of tablet 17:34: daily. [place] [address] Medical Branch atorvastati 2020-0 Yes 40mg Take [...] Until Discontinu ed, Routine furosemide 2020-0 Yes [id number] 40mg Take 1 [facility] 40 mg 4-17 tablet by ity of tablet 00:00: mouth [place] 00 every Medical morning Branch and evening. potassium 2020-0 Yes [id number] 20meq Take 20 [facility] chloride 20 4-17 mEq by ity of mEq packet 00:00: mouth [place] 00 daily. Medical Branch vitamin 2020-0 Yes [id number] 1000ug Take 1 U nivers B-12 1,000 4-17 tablet by ity of mcg tablet 00:00: mouth [place] 00 daily. Medical Branch furosemide 2020-0 Yes [id number] 40mg Take 1 [facility] 40 mg 4-17 tablet by ity of tablet 00:00: mouth [place] 00 every Medical morning Branch and evening. potassium 2020-0 Yes [id number] 20meq Take 20 [facility] chloride 20 4-17 mEq by ity of mEq packet 00:00: mouth [place] 00 daily. Medical Branch vitamin 2020-0 Yes [id number] 1000ug Take 1 U nivers B-12 1,000 4-17 tablet by ity of mcg tablet 00:00: mouth [place] 00 daily. Medical Branch furosemide 2020-0 2020- No [id number] 40mg Take 1 [facility] 40 mg 4-17 04-22 tablet by ity of tablet 00:00: 00:00 mouth [place] 00 :00 every Medical morning Branch and evening. potassium 2020-0 2020- No [id number] 20meq Take 20 [facility] chloride 20 4-17 04-22 mEq by ity o f mEq packet 00:00: 00:00 mouth [place] 00 :00 daily. Medical Branch vitamin 2020-0 2020- No [id number] 1000ug Take 1 [facility] B-12 1,000 -17 04-22 tablet by ity of mcg tablet 00:00: 00:00 mouth [place] 00 :00 daily. Medical Branch cyanocobala 2020-0 Yes 1000ug 1,000 mcg, [facility] min 4-16 Subcutaneo ity of (VITAMIN 20:45: us, Q24H, [place] B12) 00 First dose Medical injection on [facility] Branch 1,000 mcg 03/01/20 at 1545, Until Discontinu ed, Routine isosorbide 2020-0 Yes 30mg 30 mg, Unive rs mononitrate 4-16 Oral, ity of (IMDUR) 24 14:00: DAILY, [place] hr tablet 00 First dose Medi birdie 30 mg on [facility] Branch 03/01/20 at 0900, Until Discontinu ed, Routine memantine 2019-0 Yes 10mg 10 mg, Univer s (NAMENDA) 4-16 Oral, ity of tablet 10 14:00: DAILY, [place] mg 00 First dose Medical on [facility] 03/01/20 at 0900, Until Discontinu ed, Routine
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 approving Restricted medication : MEGADC lisinopril 2020-0 Yes 5mg 5 mg, Univer s (PRINIVIL,Z 4-16 Oral, ity of ESTRIL) 14:00: DAILY, [place] tablet 5 mg 00 First dose Me dical on [facility] Branch 03/01/20 at 0900, Until Discontinu ed, Routine enoxaparin 2020-0 Yes 30mg 30 mg, Unive rs (LOVENOX) 4-16 Subcutaneo ity of injection 14:00: [place], DAILY, [place] 30 mg 00 First dose Medical on [facility] 03/01/20 at 0900, Until Discontinu ed, Routine KCL 2020-0 2020- No 20meq 20 mEq, Univers (KLOR-CON -16 04-16 Oral, ity of M20) tablet 14:00: 13:26 DAILY, [place] 20 mEq 00 :35 First dose Medical on [facility] 4/16/20 at 0900, Until Discontinu ed, [...] [place] gram/50 mL 00 :00 dose, Thu [facility] birdie (4 %) 2 g 02/29/20 at [facility] piggyback 2230 metoprolol 2020-0 2020- No 5mg 5 mg, Slow Univers (LOPRESSOR) 03-01 IV Push, ity of injection 5 03:30: 03:37 ONCE, 1 [place] mg 00 :00 dose, Thu [facility] 02/29/20 at Branch 2230, ADAMA glipiZIDE 2020-0 Yes 5mg 5 mg, Univers (GLUCOTROL) 03-01 Oral, ity of tablet 5 mg 02:45: BIDAC, [place] 00 First dose Medical on Thu [place] 02/29/20 at 2145, Until Discontinu ed, Routine insulin 2020-0 Yes 10U 10 Units, Unive rs glargine 03-01 Subcutaneo ity o f (LANTUS 02:45: us, QHS, [place] U-100) 00 First dose Medical injection on Thu [place] 10 Units 02/29/20 at 2145, Until Discontinu [...] mg 00 First dose Medical on Thu [place] 02/29/20 at 2130, Until Discontinu ed, Routine [...] 02-14 by mouth ity of 00:00: daily. [place] 00 Medical Branch donepezil 5 2019- No 5mg Take 5 mg Univers mg tablet 02-1408 by mouth ity o f 00:00: 00:00 daily. [place] 00 :00 Medical Branch nitroglycer 2019- No [...] N ORAL 3-03 mouth. ity of 23:00: [place] [address] Medical Branch thiamine 2020-0 Yes 100mg Take 100 Univ ers (VITAMIN 3-03 mg by ity of B-1) 100 mg 23:00: mouth [place] tablet 52 daily. Medical Branch aspirin 81 2020-0 Yes 81mg Take 81 mg U nivers mg chewable 3-03 by mouth ity of tablet 23:00: daily. [place] [address] Medical Branch atorvastati 2020-0 Yes 40mg Take 40 mg Univers n 40 mg 3-03 by mouth ity of tablet 23:00: at [place] [address] bedtime. Medical Branch NaCl 0.9% 2020-0 Yes [...] by ity of mEq packet 23:00: mouth [place] 52 daily. Medical Branch Cholecalcif 2020-0 Yes Take by Un mel ann, 3-03 mouth. ity of Vitamin D3, 23:00: [place] 2,000 unit 52 Medical capsule Branch metoprolol 2020-0 Yes 12.5mg Take 12.5 Univers tartrate 3-03 mg by ity of 12.5 mg 23:00: mouth 2 [place] [address] (two) Medical times Branch daily. MULTIVITAMI 2020-0 Yes Take by Un mel N ORAL 3-03 mouth. ity of 23:00: [place] [address] Medical Branch thiamine 2020-0 Yes 100mg Take 100 Univ ers (VITAMIN 3-03 mg by ity of B-1) 100 mg 23:00: mouth [place] tablet 52 daily. Medical Branch aspirin 81 2020-0 Yes 81mg Take 81 mg U nivers mg chewable 3-03 by mouth ity of tablet 23:00: daily. [place] [address] Medical Branch atorvastati 2020-0 Yes 40mg Take 40 mg Univers n 40 mg 3-03 by mouth ity of tablet 23:00: at [place] [address] bedtime. Medical Branch NaCl 0.9% 2020-0 Yes [...] by ity of mEq packet 23:00: mouth [place] 52 daily. Medical Branch Cholecalcif 2020-0 Yes Take by Un mel ann, 3-03 mouth. ity of Vitamin D3, 23:00: [place] 2,000 unit 52 Medical capsule Branch metoprolol 2020-0 Yes 12.5mg Take 12.5 Univers tartrate 3-03 mg by ity of 12.5 mg 23:00: mouth 2 [place] [address] (two) Medical times Branch daily. MULTIVITAMI 2020-0 [...] by mouth ity of tablet 23:00: daily. [place] [address] Medical Branch atorvastati 2020-0 Yes 40mg Take 40 mg Univers n 40 mg 3-03 by mouth ity of tablet 23:00: at [place] [address] bedtime. Medical Branch NaCl 0.9% 2020-0 Yes [...] by ity of mEq packet 23:00: mouth [place] 52 daily. Medical Branch Cholecalcif 2020-0 Yes [...] N ORAL 3-03 mouth. ity of 23:00: [place] 52 Medical Branch thiamine 2020-0 Yes 100mg Take 100 Univ ers (VITAMIN 3-03 mg by ity of B-1) 100 mg 23:00: mouth [place] tablet 52 daily. Medical Branch aspirin 81 2020-0 Yes 81mg Take 81 mg U nivers mg chewable 3-03 by mouth ity of tablet 23:00: daily. [address] Branch atorvastati 2019-0 Yes 40mg Take 40 mg Univers n 40 mg 3-03 by mouth ity of tablet 23:00: at [place] [address] bedtime. Medical Branch NaCl 0.9% 2019-0 Yes [...] First dose [place] mg 00 on [facility] 01/16/20 at Branch 2100, Until Discontinu ed, Routine ranolazine 2019-0 2020- No [id number] 500mg Take 1 [facility] 500 mg 12 01-16- tablet by ity of hr tablet 00:00: 04:59 mouth [place] 00 :00 every 12 Medical (twelve) Branch hours for 30 days. ranolazine 2020-0 2020- No [id number] 500mg Take 1 [facility] 500 mg 12 01-16 04- tablet by ity of hr tablet 00:00: 04:59 mouth [place] 00 :00 every 12 Medical (twelve) Branch hours for 30 days. ranolazine 2020-0 2020- No [id number] 500mg Take 1 [facility] 500 mg 12 01-16 04-03 tablet by ity of hr tablet 00:00: 04:59 mouth [place] 00 :00 every 12 Medical (twelve) Branch hours for 30 days. ranolazine 2020-0 2020- No [id number] 500mg Take 1 [facility] 500 mg 01-16 04-03 tablet by ity of hr tablet 00:00: 04:59 mouth [place] 00 :00 every 12 Medical (twelve) Branch hours for 30 days. ranolazine 2019-0 Yes 500mg 500 mg, Uni vers (RANEXA) 12 -02 Oral, ity of hr tablet 22:30: Q12H, [place] 500 mg 00 First dose Medical on [facility] 01/16/20 at 1630, Until Discontinu ed, Routine insulin 2019-0 Yes 30U 30 Units, Unive rs glargine 3-02 Subcutaneo ity o f (LANTUS 15:00: [place], DAILY, [place] U-100) 00 First dose Medical injection on [facility] Branch 30 Units 01/16/20 at 0900, Until Discontinu ed furosemide 2020-0 Yes 40mg 40 mg, Unive rs (LASIX) 01-15 Oral, ity of tablet 40 15:00: DAILY, [place] mg 00 First dose Medical on [facility] Branch 01/16/20 at 0900, Until Discontinu ed, Routine aspirin 2020-0 Yes 81mg 81 mg, Univers chewable 01-15 Oral, ity of tablet 81 15:00: DAILY, [place] mg 00 First dose Medical on [facility] Branch 01/16/20 at 0900, Until Discontinu ed, Routine metoprolol 2020-0 Yes 12.5mg 12.5 mg, U nivers tartrate 01-15 Oral, BID, ity o f (LOPRESSOR) 14:00: First dose [place] tablet 12.5 00 on [facility] Medica l mg 01/16/20 at Branch 0800, Until Discontinu ed, Routine Sliding 2020-0 Yes Subcutaneo Univ ers Scale 01-15 us, Q6H, ity of Insulin-Reg 12:00: First dose [place] ular + Fsbg 00 on [facility] Medica l Testing 01/16/20 at Branch [...] IV ity of (D50W) 10:52: Push, PRN, [place] injection 33 Starting Medica l 25 mL [facility] 01/16/20 Branch at 0452, Until Discontinu [...] IV Push, ity of (PF)) 07:55: Q6HPRN, [place] injection 4 01 Starting Medi birdie mg 01/16/20 Branch at 0155, Until Discontinu ed, Routine, Nausea and Vomiting (N/V) morpHINE 2019-0 2020- No 2mg 2 mg, Slow Un mel injection 2 01-15 03-03 IV Push, ity of mg 07:54: 07:53 Q6HPN, [place] 55 :55 Starting Medical [facility] 01/16/20 Branch at 0154, Until Tu01/17/20 at 0153, Routine, Pain (scale 7-10) traMADol 2019-0 2020- No 50mg 50 mg, Univer s (ULTRAM) 01-15 03-04 Oral, ity of tablet 50 07:54: 07:53 [facility] Medical [facility] 01/16/20 Branch at 0154, Until Thu01/18/20 at 0153, Routine, Pain (scale 4-6) acetaminoph 2019-0 Yes 650mg 650 mg, Un mel en 01-15 Oral, ity of (TYLENOL) 07:54: [facility], [place] tablet 650 44 Starting Medic al mg [facility] 01/16/20 Branch at 0154, Until Discontinu ed, Routine, Pain (scale 1-3) insulin 2020-0 2020- No 8U 8 Units, Unive rs regular 01-15 03- Slow IV ity of human 06:45: 05:40 Push, [place] (HUMULIN R) 00 :00 ONCE, 1 Medic [...] 01/15/20 at 2345, [place]AMA furosemide 2018-11 Yes [id number] 40mg Take 1 Univers 40 mg 0-26 tablet by ity of tablet 00:00: mouth [place] 00 daily. Medical Branch furosemide 2018-11 Yes [id number] 40mg Take 1 Univers 40 mg 0-26 tablet by ity of tablet 00:00: mouth [place] 00 daily. Medical Branch furosemide 2018-11 Yes [id number] 40mg Take 1 Univers 40 mg 0-26 tablet by ity of tablet 00:00: mouth [place] 00 daily. Medical Branch furosemide 2018-11 Yes [id number] 40mg Take 1 Univers 40 mg 0-26 tablet by ity of tablet 00:00: mouth [place] 00 daily. Medical Branch furosemide 2018-11 2020- No [id number] 40mg Take 1 Univers 40 mg 0-26 04-17 tablet by ity of tablet 00:00: 00:00 mouth [place] 00 :00 daily. Medical Branch magnesium 2018-11 Yes [id number] 400mg Take 400 Univers oxide 420 0-23 mg by ity of mg Tab 00:00: mouth [place] 00 daily. Medical Branch magnesium 2018- Yes [id number] 400mg Take 400 Univers oxide 420 0-23 mg by ity of mg Tab 00:00: mouth [place] 00 daily. Medical Branch magnesium 2018- Yes [id number] 400mg Take 400 Univers oxide 420 0-23 mg by ity of mg Tab 00:00: mouth [place] 00 daily. Medical Branch magnesium 2018- Yes [id number] 400mg Take 400 Univers oxide 420 0-23 mg by ity of mg Tab 00:00: mouth [place] 00 daily. Medical Branch magnesium 2018- Yes [id number] 400mg Take 400 Univers oxide 420 0-23 mg by ity of mg Tab 00:00: mouth [place] 00 daily. Medical Branch magnesium 2018- Yes [id number] 400mg Take 400 Univers oxide 420 0-23 mg by ity of mg Tab 00:00: mouth [place] 00 daily. Medical Branch magnesium 2018- 2020- No [id number] 400mg Take 400 Univers oxide 420 0-23 04-22 mg by ity of mg Tab 00:00: 00:00 mouth [place] 00 :00 daily. Medical Branch Insulin 2018-0 Yes [id number] 30U inject 30 Univers Glargine 9-11 Units ity of 100 unit/mL 00:00: under the [place] (3 mL) 00 skin every Medical injection morning. Branch Insulin Yes [id number] 30U inject 30 Univers Glargine 9-11 Units ity of 100 unit/mL 00:00: under the [place] (3 mL) 00 skin every Medical injection morning. Branch Insulin Yes [id number] 30U inject 30 Univers Glargine 9-11 Units ity of 100 unit/mL 00:00: under the [place] (3 mL) 00 skin every Medical injection morning. Branch Insulin Yes [id number] 30U inject 30 Univers Glargine 9-11 Units ity of 100 unit/mL 00:00: under the [place] (3 mL) 00 skin every Medical injection morning. Branch Insulin Yes [id number] 30U inject 30 Univers Glargine 9-11 Units ity of 100 unit/mL 00:00: under the [place] (3 mL) 00 skin every Medical injection morning. Branch Insulin Yes [id number] 30U inject 30 Univers Glargine 9-11 Units ity of 100 unit/mL 00:00: under the [place] (3 mL) 00 skin every Medical injection morning. Branch Insulin Yes [id number] 30U inject 30 Univers Glargine 9-11 Units ity of 100 unit/mL 00:00: under the [place] (3 mL) 00 skin every Medical injection morning. Branch Insulin 2020- No [id number] 30U inject 30 Univers Glargine 9-11 04-22 [...] mg under ity of 15:26: the skin. [place] [address] Medical Branch Cholecalcif 0 Yes Take by Un mel ann, 5-10 mouth. ity of Vitamin D3, 15:26: [place] 2,000 unit 43 Medical capsule Branch metoprolol 0 Yes 12.5mg Take 12.5 Univers tartrate 5-10 mg by ity of 12.5 mg 15:26: mouth 2 [place] 43 (two) Medical times Branch daily. MULTIVITAMI 0 Yes Take by Un mel N ORAL 5-10 mouth. ity of 15:26: [place] [address] Medical Branch thiamine 0 Yes 100mg Take 100 Univ ers (VITAMIN 5-10 mg by ity of B-1) 100 mg 15:26: mouth [place] tablet 43 daily. Medical Branch aspirin 81 Yes 81mg Take 81 mg U nivers mg chewable 5-10 by mouth ity of tablet 15:26: daily. [place] [address] Medical Branch atorvastati 0 Yes 40mg Take 40 mg Univers n 40 mg 5-10 by mouth ity of tablet 15:26: at [place] 43 bedtime. Medical Branch furosemide 0 Yes 40mg Take 40 mg U nivers 40 mg 5-10 by mouth ity of tablet 15:26: daily. [place] [address] Medical Branch NaCl 0.9% 0 Yes 10mL [...] mg under ity of 15:26: the skin. [place] [address] Medical Branch Cholecalcif 0 Yes Take by Un mel ann, 5-10 mouth. ity of Vitamin D3, 15:26: [place] 2,000 unit 43 Medical capsule Branch metoprolol 0 Yes 12.5mg Take 12.5 Univers tartrate 5-10 mg by ity of 12.5 mg 15:26: mouth 2 [place] [address] (two) Medical times Branch daily. MULTIVITAMI 0 Yes Take by Un mel N ORAL 5-10 mouth. ity of 15:26: [place] [address] Medical Branch thiamine 2018-0 Yes 100mg Take 100 Univ ers (VITAMIN 5-10 mg by ity of B-1) 100 mg 15:26: mouth [place] tablet 43 daily. Medical Branch aspirin 81 0 Yes 81mg Take 81 mg U nivers mg chewable 5-10 by mouth ity of tablet 15:26: daily. [place] [address] Medical Branch atorvastati 0 Yes 40mg Take 40 mg Univers n 40 mg 5-10 by mouth ity of tablet 15:26: at [place] [address] bedtime. Medical Branch furosemide 0 Yes 40mg Take 40 mg U nivers 40 mg 5-10 by mouth ity of tablet 15:26: daily. [place] [address] Medical Branch NaCl 0.9% Yes 10mL Inject 10 Uni vers (NS) Soln 5-10 mL ity of 10 mL with 15:26: intravenou [place] sodium 43 sly once Medical chloride now. Branch 2.5 mEq/mL SolP 17.125 mEq insulin Yes [id number] 4U inject 4 U nivers lispro, 5-10 Units ity of human, 100 00:00: under the [place] unit/mL 00 skin 3 Medical injection (three) Branch times daily before meals. insulin 2018-0 Yes [id number] 4U inject 4 U nivers lispro, 5-10 Units ity of human, 100 00:00: under the [place] unit/mL 00 skin 3 Medical injection (three) Branch times daily before meals. insulin 2018-0 Yes [id number] 4U inject 4 U nivers lispro, 5-10 Units ity of human, 100 00:00: under the [place] unit/mL 00 skin 3 Medical injection (three) Branch times daily before meals. insulin 2018-0 Yes [id number] 4U inject 4 U nivers lispro, 5-10 Units ity of human, 100 00:00: under the [place] unit/mL 00 skin 3 Medical injection (three) Branch times daily before meals. insulin 2018-0 Yes [id number] 4U inject 4 U nivers lispro, 5-10 Units ity of human, 100 00:00: under the [place] unit/mL 00 skin 3 Medical injection (three) Branch times daily before meals. insulin 2018-0 Yes [id number] 4U inject 4 U nivers lispro, 5-10 Units ity of human, 100 00:00: under the [place] unit/mL 00 skin 3 Medical injection (three) Branch times daily before meals. Insulin 2018-0 Yes [id number] 18U inject Uni vers Glargine 5-10 18-24 ity of 100 unit/mL 00:00: Units [place] (3 mL) 00 under the Medical injection skin every Bran ch morning. insulin 2018-0 Yes [id number] 4U inject 4 U nivers lispro, 5-10 Units ity of human, 100 00:00: under the [place] unit/mL 00 skin 3 Medical injection (three) Branch times daily before meals. insulin 2018-0 Yes [id number] 4U inject 4 U nivers lispro, 5-10 Units ity of human, 100 00:00: under the [place] unit/mL 00 skin 3 Medical injection (three) Branch times daily before meals. insulin 2018-0 Yes [id number] 4U inject 4 U nivers lispro, 5-10 Units ity of human, 100 00:00: under the [place] unit/mL 00 skin 3 Medical injection (three) Branch times daily before meals. insulin 2018-0 Yes [id number] 4U inject 4 U nivers lispro, 5-10 Units ity of human, 100 00:00: under the [place] unit/mL 00 skin 3 Medical injection (three) Branch times daily before meals. insulin 2018-0 Yes [id number] 4U inject 4 U nivers lispro, 5-10 Units ity of human, 100 00:00: under the [place] unit/mL 00 skin 3 Medical injection (three) Branch times daily before meals. insulin 2020- No [id number] 4U inject 4 Univers lispro, 5-10 05-07 Units ity of human, 100 00:00: 00:00 under the [place] unit/mL 00 :00 skin 3 Medical injection (three) Branch times daily before meals. insulin 2020- No [id number] 4U inject 4 Univers lispro, 5-10 05-07 Units ity of human, 100 00:00: 00:00 under the [place] unit/mL 00 :00 skin 3 Medical injection (three) Branch times daily before meals. Insulin 2019- No [id number] 18U inject Un mel Glargine 5- 09-11 18-24 ity of 100 unit/mL 00:00: 00:00 [place] (3 mL) 00 :00 under the Medical injection skin every Bran ch morning. folic Yes Take by Univers acid/vit B 3-08 mouth. ity of complex and 16:39: [facility] ( 29 Medical COMPLEX-VIT Branch RAZA C-FOLIC ACID ORAL) potassium Yes 20meq Take 20 Univ ers chloride 20 3-08 mEq by ity of mEq packet 16:39: mouth [place] 29 daily. Medical Branch folic Yes Take by Univers acid/vit B 3-08 mouth. ity of complex and 16:39: [place] C ( 29 Medical COMPLEX-VIT Branch RAZA C-FOLIC ACID ORAL) potassium Yes 20meq Take 20 Univ ers chloride 20 3-08 mEq by ity of mEq packet 16:39: mouth [place] 29 daily. Medical Branch Potassium Potassium Yes [...] Anneliese as [facility] ent Clinics Lasix Lasix Yes Anneliese [address] [facility]ics Isosorbide Isosorbide Yes [place] [address] [facility] [address] [facility] ent Clinics Lyrica Lyrica Yes [place] 1 capsule [facility]ics Immunizations Ordered Filled Immunization Date Status Comments [facility] e Immunization Name Name SARS-COV-2 COVID-19 2021-09-16 Completed Unive rsity of MODERNA VACCINE 00:00:00 [facility] SARS-COV-2 COVID-19 2021-09-16 Completed Unive rsity of MODERNA VACCINE 00:00:00 [facility] SARS-COV-2 COVID-19 2021-09-16 Completed Unive rsity of MODERNA VACCINE 00:00:00 [facility] SARS-COV-2 COVID-19 2021-08-17 Completed Unive rsity of MODERNA VACCINE 00:00:00 [facility] Influenza High Dose 2021-08-17 Completed Unive rsity of 00:00:00 [facility] SARS-COV-2 COVID-19 2021-08-17 Completed Unive rsity of MODERNA VACCINE 00:00:00 [facility] Influenza High Dose 2021-08-17 Completed Unive rsity of 00:00:00 [facility] SARS-COV-2 COVID-19 2021-08-17 Completed Unive rsity of MODERNA VACCINE 00:00:00 [facility] Influenza High Dose 2021-08-17 Completed Unive rsity of 00:00:00 [facility] Zoster(Zostavax)( 2020-09-14 Completed Unive rsity of ingles) 00:00:00 [facility] Zoster(Zostavax)( 2020-09-14 Completed Unive rsity of ingles) 00:00:00 [facility] Zoster(Zostavax)( 2020-09-14 Completed Unive rsity of ingles) 00:00:00 [place] [facility] Influenza High Dose 2020-07-13 Completed Unive rsity of 00:00:00 [facility] Influenza High Dose 2020-07-13 Completed Unive rsity of 00:00:00 [facility] Influenza High Dose 2020-07-13 Completed Unive rsity of 00:00:00 [facility] Influenza High Dose 2019-09-15 Completed Unive rsity of 00:00:00 [facility] Influenza High Dose 2019-09-15 Completed Unive rsity of 00:00:00 [facility] Influenza High Dose 2019-09-15 Completed Unive rsity of 00:00:00 [facility] Influenza Virus 2018-09-09 Completed Universit y of Vaccine 00:00:00 [facility] Influenza Virus 2018-09-09 Completed Universit y of Vaccine 00:00:00 [facility] Influenza Virus 2018-09-09 Completed Universit y of Vaccine 00:00:00 [facility] Influenza Virus 2018-09-09 Completed Universit y of Vaccine 00:00:00 [facility] Influenza Virus 2018-09-09 Completed Universit y of Vaccine 00:00:00 [facility] Influenza Virus 2018-09-09 Completed Universit y of Vaccine 00:00:00 [facility] Influenza Virus 2018-09-09 Completed Universit y of Vaccine 00:00:00 [facility] Influenza Virus 2018-09-09 Completed Universit y of Vaccine 00:00:00 [facility] Influenza Virus 2018-09-09 Completed Universit y of Vaccine 00:00:00 [facility] Influenza Virus 2018-09-09 Completed Universit y of Vaccine 00:00:00 [facility] Influenza Virus 2018-09-09 Completed Universit y of Vaccine 00:00:00 [facility] Influenza Virus 2018-09-09 Completed Universit y of Vaccine 00:00:00 [facility] Influenza Virus 2018-09-09 Completed Universit y of Vaccine 00:00:00 [facility] Influenza Virus 2018-09-09 Completed Universit y of Vaccine 00:00:00 [facility] Influenza Virus 2018-09-09 Completed Universit y of Vaccine 00:00:00 [facility] Influenza Virus 2018-09-09 Completed Universit y of Vaccine 00:00:00 [facility] Influenza Virus 2018-09-09 Completed Universit y of Vaccine 00:00:00 [facility] Influenza Virus 2018-09-09 Completed Universit y of Vaccine 00:00:00 [facility] Influenza Virus 2018-09-09 Completed Universit y of Vaccine 00:00:00 [facility] Influenza Virus 2018-09-09 Completed Universit y of Vaccine 00:00:00 [facility] Influenza Virus 2018-09-09 Completed Universit y of Vaccine 00:00:00 [facility] Pneumococcal 2016-11-02 Completed University o f Polysaccharide, [...] blood 2021-11-02 17:17:00 109 mm[Hg] Univer sity [facility] Diastolic blood 2021-11-02 17:17:00 67 mm[Hg] Unive rsity [facility] Heart rate 2021-11-02 17:17:00 84 /min [facility] Body temperature 2021-11-02 17:17:00 36.44 [facility]anka [facility] 2021-11-02 17:17:00 18 /min [facility] Oxygen saturation in 2021-11-02 17:17:00 95 /min [facility] Arterial blood by [facility] Pulse oximetry Branch Body weight 2021-11-02 09:17:00 79.969 kg [facility] BMI 2021-11-02 09:17:00 27.61 kg/m2 [facility] Body height 2021-10-31 05:46:00 170.2 cm [facility] Systolic blood 2021-04-25 22:36:00 118 mm[Hg] Univer sity of pressure [facility] Diastolic blood 2021-04-25 22:36:00 70 mm[Hg] Unive rsity of [facility] Heart rate 2021-04-25 22:36:00 68 /min Universi ty [facility] [place] [facility] Respiratory rate 2021-04-25 22:36:00 18 /min Univ ersity of [place] [facility] Oxygen saturation in 2021-04-25 22:36:00 99 /min University of Arterial blood by [facility] birdie Pulse oximetry Branch Body temperature 2021-04-25 15:42:00 36.44 Priyanka Univ ersity of [place] [facility] Body weight 2021-04-25 15:42:00 81.647 kg Universi ty [facility] [place] [facility] BMI 2021-04-25 15:42:00 27.37 kg/m2 [facility]i ty [facility] [place] [facility] Systolic blood 2020-06-26 10:00:00 124 mm[Hg] Univer sity of pressure [place] [facility] Diastolic blood 2020-06-26 10:00:00 78 mm[Hg] Unive rsity of pressure [place] [facility] Respiratory rate 2020-06-26 10:00:00 18 /min Univ ersity of [place] [facility] Oxygen saturation in 2020-06-26 10:00:00 98 /min University of Arterial blood by [facility] Pulse oximetry Branch Heart rate 2020-06-26 08:56:00 98 /min Universi ty of [place] [facility] Body temperature 2020-06-26 08:56:00 37.17 Priyanka Univ ersity of [place] [facility] Body weight 2020-06-26 08:56:00 74.844 kg Universi ty [facility] [place] [facility] BMI 2020-06-26 08:56:00 25.09 kg/m2 [facility]i ty [facility] [place] [facility] Systolic blood 2020-06-26 10:00:00 124 mm[Hg] Univer sity of pressure [place] [facility] Diastolic blood 2020-06-26 10:00:00 78 mm[Hg] Unive rsity of pressure [place] [facility] Respiratory rate 2020-06-26 10:00:00 18 /min Univ ersity of [place] [facility] Oxygen saturation in 2020-06-26 10:00:00 98 /min University of Arterial blood by [facility] birdie Pulse oximetry Branch Heart rate 2020-06-26 08:56:00 98 /min Universi ty [facility] [place] [facility] Body temperature 2020-06-26 08:56:00 37.17 Priyanka Univ ersity of [place] [facility] Body weight 2020-06-26 08:56:00 74.844 kg Universi ty [facility] [place] [facility] BMI 2020-06-26 08:56:00 25.09 kg/m2 [facility]i [facility] [place] [facility] Systolic blood 2020-05-24 15:47:29 166 mm[Hg] Univer sity of pressure [place] [facility] Diastolic blood 2020-05-24 15:47:29 89 mm[Hg] Unive rsity of pressure [place] [facility] Heart rate 2020-05-24 15:47:29 86 /min Universi ty [facility] [place] [facility] Respiratory rate 2020-05-24 15:47:29 16 /min Univ ersity of [place] [facility] Oxygen saturation in 2020-05-24 15:47:29 97 /min University of Arterial blood by [place] [facility] birdie Pulse oximetry Branch Body temperature 2020-05-24 11:44:00 36.94 Priyanka Univ ersity of [place] [facility] Body height 2020-05-24 11:44:00 172.7 cm Universi ty [facility] [place] [facility] Body weight 2020-05-24 11:44:00 74.844 kg Universi ty [facility] [place] [facility] BMI 2020-05-24 11:44:00 25.09 kg/m2 [facility]i [facility] [place] [facility] Systolic blood 2020-05-24 15:47:29 166 mm[Hg] Univer sity of pressure [place] [facility] Diastolic blood 2020-05-24 15:47:29 89 mm[Hg] Unive rsity of pressure [place] [facility] Heart rate 2020-05-24 15:47:29 86 /min Universi ty of [place] [facility] Respiratory rate 2020-05-24 15:47:29 16 /min Univ ersity of [place] [facility] Oxygen saturation in 2020-05-24 15:47:29 97 /min University of Arterial blood by [place] docTrackr birdie Pulse oximetry Branch Body temperature 2020-05-24 11:44:00 36.94 Priyanka Univ ersity of [place] [facility] Body height 2020-05-24 11:44:00 172.7 cm Universi ty [facility] [place] [facility] Body weight 2020-05-24 11:44:00 74.844 kg Universi ty of [place] [facility] BMI 2020-05-24 11:44:00 25.09 kg/m2 [facility]i [facility] [place] [facility] Systolic blood 2020-03-24 02:31:00 127 mm[Hg] Univer sity of pressure [place] [facility] Diastolic blood 2020-03-24 02:31:00 72 mm[Hg] Unive rsity of pressure [place] [facility] Heart rate 2020-03-24 02:31:00 69 /min Universi ty [facility] [place] [facility] Body temperature 2020-03-24 02:31:00 36.39 Priyanka Univ ersity of [place] [facility] Respiratory rate 2020-03-24 02:31:00 18 /min Univ ersity of [place] [facility] Oxygen saturation in 2020-03-24 02:31:00 97 /min University of Arterial blood by [place] docTrackr birdie Pulse oximetry Branch Systolic blood 2020-03-23 21:35:00 100 mm[Hg] Univer sity of pressure [place] [facility] Diastolic blood 2020-03-23 21:35:00 59 mm[Hg] Unive rsity of pressure [place] [facility] Heart rate 2020-03-23 21:35:00 79 /min Universi ty [facility] [place] [facility] Body temperature 2020-03-23 21:35:00 36.78 Priyanka Univ ersity of [place] [facility] Respiratory rate 2020-03-23 21:35:00 18 /min Univ ersity of [place] [facility] Oxygen saturation in 2020-03-23 21:35:00 99 /min University of Arterial blood by [place] docTrackr birdie Pulse oximetry Branch Body weight 2020-03-23 09:41:00 76.613 kg Universi ty [facility] [place] [facility] BMI 2020-03-23 09:41:00 26.45 kg/m2 [facility]i [facility] [place] [facility] Body height 2020-03-23 03:43:00 170.2 cm [facility]i [facility] [place] [facility] Systolic blood 2020-03-21 20:55:00 128 mm[Hg] Univer sity of pressure [place] [facility] Diastolic blood 2020-03-21 20:55:00 61 mm[Hg] Unive rsity of pressure [place] [facility] Heart rate 2020-03-21 20:55:00 75 /min [facility]i ty [facility] [place] [facility] Respiratory rate 2020-03-21 20:55:00 10 /min Univ ersity of [place] [facility] Oxygen saturation in 2020-03-21 20:55:00 98 /min University of Arterial blood by [place] docTrack[facility] birdie Pulse oximetry Branch Body temperature 2020-03-21 20:03:00 37.83 Priyanka Univ ersity of [place] [facility] Body height 2020-03-21 20:03:00 170.2 cm [facility]i [facility] [place] [facility] Body weight 2020-03-21 20:03:00 76.204 kg [facility] [place] [facility] BMI 2020-03-21 20:03:00 26.31 kg/m2 [facility] [place] [facility] Systolic blood 2020-03-07 20:50:00 118 mm[Hg] Univer sity of pressure [place] [facility] Diastolic blood 2020-03-07 20:50:00 65 mm[Hg] Unive rsity of pressure [place] [facility] Heart rate 2020-03-07 20:50:00 85 /min [facility]i [facility] [place] [facility] Body temperature 2020-03-07 20:50:00 36.39 Priyanka Univ ersity of [place] [facility] Respiratory rate 2020-03-07 20:50:00 18 /min Univ ersity of [place] [facility] Oxygen saturation in 2020-03-07 20:50:00 95 /min University of Arterial blood by [place] docTrackr birdie Pulse oximetry Branch Body height 2020-03-05 02:35:00 172.7 cm [facility]i [facility] [place] [facility] Body weight 2020-03-05 02:35:00 73.483 kg [facility] [place] [facility] BMI 2020-03-05 02:35:00 24.63 kg/m2 [facility] [place] [facility] Systolic blood 2020-03-02 15:49:00 122 mm[Hg] Univer sity of pressure [place] [facility] Diastolic blood 2020-03-02 15:49:00 81 mm[Hg] Unive rsity of pressure [place] [facility] Heart rate 2020-03-02 15:49:00 89 /min [facility]i ty [facility] [place] [facility] Body temperature 2020-03-02 15:49:00 37.06 Priyanka Univ ersity of [place] [facility] Respiratory rate 2020-03-02 15:49:00 19 /min Univ ersity of [place] [facility] Oxygen saturation in 2020-03-02 15:49:00 96 /min University of Arterial blood by [place] docTrackr birdie Pulse oximetry Branch Body height 2020-03-01 00:54:00 170.2 cm [facility] [place] [facility] Body weight 2020-03-01 00:54:00 76.975 kg [facility]i [facility] [place] [facility] BMI 2020-03-01 00:54:00 26.58 kg/m2 [facility] [place] [facility] Systolic blood 2020-01-17 21:08:00 116 mm[Hg] Univer sity of pressure [facility] Diastolic blood 2020-01-17 21:08:00 78 mm[Hg] Unive [facility] Heart rate 2020-01-17 21:08:00 88 /min [facility] Body temperature 2020-01-17 21:08:00 36.72 Priyanka [facility] Respiratory rate 2020-01-17 21:08:00 18 /min [facility] Oxygen saturation in 2020-01-17 21:08:00 98 /min [facility] Arterial blood by [facility] Pulse oximetry [place] Body height 2020-01-16 06:21:00 172.7 cm [facility] Body weight 2020-01-16 04:35:00 83.462 kg [facility] BMI 2020-01-16 04:35:00 27.98 kg/m2 [facility] Procedures Procedure Date / Time Performing Clinician Source Performed EXTERNAL PROVIDER RECORDS 2021-11-19 06:01:00 Doctor Unassigned, [facility] [place] [facility] POCT GLUCOSE (AUTOMATED) 2021-11-02 22:49:00 Aida Shah [facility] POCT GLUCOSE (AUTOMATED) 2021-11-02 17:06:00 Aida Shah [facility] POCT GLUCOSE (AUTOMATED) 2021-11-02 13:30:00 Aida Shah [facility] TROPONIN I 2021-11-02 09:29:00 Alexandra Hdz [facility] BASIC METABOLIC PANEL 2021-11-02 09:29:00 Sridhar Gordon [facility] (NA, K, CL, CO2, GLUCOSE, Medica l Branch BUN, CREATININE, CA) CBC WITH DIFF 2021-11-02 09:29:[address] [facility] N-TERMINAL PRO-BNP 2021-11-02 09:29:00 [facility] POCT GLUCOSE (AUTOMATED) 2021-11-02 01:27:00 Aida Shah [facility] POCT GLUCOSE (AUTOMATED) 2021-11-01 17:37:00 AlyssaKeerthii [facility] acute hospital POCT GLUCOSE (AUTOMATED) 2021-11-01 13:40:00 AlyssaKeerthii [facility] acute hospital POCT GLUCOSE (AUTOMATED) 2021-11-01 01:10:00 Aida Shah [facility] acute hospital POCT GLUCOSE (AUTOMATED) 2021-10-31 22:28:00 Alyssa Aida Nilda [facility] POCT GLUCOSE (AUTOMATED) 2021-10-31 17:29:00 [facility] 2021-10-31 16:25:00 Alexandra Hdz [facility] TRANSTHORACIC ECHO (TTE) 2021-10-31 15:53:00 Alexandra Hdz [facility] COMPLETE W/ CONTRAST Medical [facility] POCT GLUCOSE (AUTOMATED) 2021-10-31 13:39:00 Martha Drake [facility] TROPONIN I 2021-10-31 10:08:00 [facility]OLIC PANEL 2021-10-31 10:08:00 [facility] (NA, K, CL, CO2, GLUCOSE, Medica l Branch BUN, CREATININE, CA) LIPID PANEL (91010)(TOTAL 2021-10-31 10:08:00 Alexandra Hdz [facility] CHOLESTEROL, [facility] TRIGLYCERIDES, HDL) CBC WITH DIFF 2021-10-31 10:08:00 [facility] URINALYSIS 2021-10-31 10:08:00 [facility] N-TERMINAL PRO-BNP 2021-10-31 10:08:00 Alexandra Hdz [facility] TROPONIN I 2021-10-31 06:17:00 [facility] 1 VW 2021-10-31 01:30:[address] [facility] LIPASE 2021-10-31 01:25:[address] [facility] TROPONIN I 2021-10-31 01:25:[address] [facility] COMP. METABOLIC PANEL 2021-10-31 01:25:00 Martha Drake [facility] ([id number]) Medical Branch CBC WITH DIFF 2021-10-31 01:25:[address] [facility] GLYCOSYLATED HEMOGLOBIN 2021-10-31 01:25:00 Sarah Harrell [facility] (A1C) [facility] PROTHROMBIN TIME / INR 2021-10-31 01:25:00 Martha Drake [facility] ACTIVATED PARTIAL 2021-10-31 01:25:00 Martha Drake [facility] N-TERMINAL PRO-BNP 2021-10-31 01:25:00 Martha Drake [facility] COVID-19 (ID NOW RAPID 2021-10-31 01:25:00 Martha Drake [facility] TESTING) Medical Branch LAB ONLY COVID 2021-10-31 01:25:00 Martha Drake [facility] INTERPRETATION [facility] HB ECG ROUTINE & RHYTHM 2021-10-31 01:20:[address] [facility] STRIP [facility] URINALYSIS 2021-04-25 21:01:00 Nallely Zhao [facility] XR LUMBAR SPINE 2 VW 2021-04-25 18:41:00 Nallely Zhao [facility] acute hospital XR HIPS 2 VW LEFT 2021-04-25 18:41:00 Nallely Zhao [facility] CONSENT/REFUSAL FOR 2021-04-25 15:43:06 Doctor Unassigned, [facility] DIAGNOSIS AND TREATMENT [place] [facility] CT CERVICAL SPINE WO 2020-06-26 09:35:01 Martha Drake [facility] CONTRAST [facility] CT LUMBAR SPINE WO 2020-06-26 09:35:01 Martha Drake [facility] CT THORACIC SPINE WO 2020-06-26 09:35:01 Martha Drake [facility] CONTRAST [facility] UNILATERAL DUPLEX SCAN OF 2020-05-24 14:53:40 [facility] LAB Medical B ranch XR ANKLE 3+ VW LEFT 2020-05-24 13:22:26 Charanjit Heck [facility] HEPATIC FUNCTION PANEL 2020-05-24 13:13:00 Charanjit Heck [facility] ([id number]) (ALB,T.PRO,BILI Medical Branch T,BU/BC,ALT,AST,ALK PHOS) BASIC METABOLIC PANEL 2020-05-24 13:13:00 Charanjit Heck [facility] (NA, K, CL, CO2, GLUCOSE, Medica l Branch BUN, CREATININE, CA) CBC WITH DIFFERENTIAL 2020-05-24 13:13:00 Charanjit Heck [facility] PROTHROMBIN TIME / INR 2020-05-24 13:13:00 Charanjit Heck [facility] ACTIVATED PARTIAL 2020-05-24 13:13:00 Charanjit Heck [facility] NOTICE OF PRIVACY 2020-05-24 11:38:26 Doctor Unassigned, [facility] PRACTICES [place] [facility] [place] CONSENT/REFUSAL FOR 2020-05-24 11:35:52 Doctor Unacassie, [facility] DIAGNOSIS AND TREATMENT [place] [facility] POCT GLUCOSE (AUTOMATED) 2020-03-23 22:32:00 Jamel Flores [facility] POCT GLUCOSE (AUTOMATED) 2020-03-23 18:07:00 Jamel Flores [facility] POCT GLUCOSE (AUTOMATED) 2020-03-23 14:57:00 Jamel Flores [facility] acute hospital ECHO ROUTINE W/DOPPLER 2020-03-23 13:33:57 Tereza Cano [facility] COLOR [facility] EKG-12 LEAD 2020-03-23 12:56:59 Jamel Flores [facility] MAGNESIUM 2020-03-23 11:15:00 Tereza Cano [facility] TROPONIN I 2020-03-23 11:15:00 Bodani, [facility] BASIC METABOLIC PANEL 2020-03-23 11:15:00 [facility] (NA, K, CL, CO2, GLUCOSE, Medica l Branch BUN, CREATININE, CA) PROTHROMBIN TIME / INR 2020-03-23 11:15:00 Tereza Cano [facility] ACTIVATED PARTIAL 2020-03-23 11:15:00 Jerome [facility] EKG-12 LEAD 2020-03-23 07:51:19 Jamel Flores [facility] MAGNESIUM 2020-03-23 05:55:00 Jerome [facility] TROPONIN I 2020-03-23 05:55:00 Jerome [facility] BASIC METABOLIC PANEL 2020-03-23 05:55:00 Jerome [facility] (NA, K, CL, CO2, GLUCOSE, Medica l Branch BUN, CREATININE, CA) LIPID PANEL (89331)(TOTAL 2020-03-23 05:55:00 Tereza Cano [facility] CHOLESTEROL, [facility] TRIGLYCERIDES, HDL) PROTHROMBIN TIME / INR 2020-03-23 02:55:00 Sallie Eckert [facility] ACTIVATED PARTIAL 2020-03-23 02:55:00 Babar [facility] XR CHEST 2 VW 2020-03-23 01:52:37 Esteban Singletary [facility] CORONAVIRUS COVID-19 2020-03-23 00:50:00 Esteban Singletary [facility] TESTING [facility] FERRITIN SERUM 2020-03-22 23:36:00 [facility] 2020-03-22 23:36:00 Esteban Singletary [facility] COMP. METABOLIC PANEL 2020-03-22 23:36:00 Esteban Singletary [facility] ([id number]) Medical Branch IRON PANEL 2020-03-22 23:36:00 Jerome [facility] CBC WITH DIFFERENTIAL 2020-03-22 23:36:00 Singletary, [facility] N-TERMINAL PRO-BNP 2020-03-22 23:36:00 Esteban Singletary [facility] EKG-12 LEAD 2020-03-22 23:08:53 [facility] EKG-12 LEAD 2020-03-22 23:08:15 [facility] XR CHEST 1 VW 2020-03-21 20:42:[address] [facility] LACTIC ACID WHOLE BLOOD 2020-03-21 20:38:00 Myles Harry [facility] acute hospital LIPASE 2020-03-21 20:19:[address] [facility] TROPONIN I 2020-03-21 20:19:[address] [facility] COMP. METABOLIC PANEL 2020-03-21 20:19:00 Myles Harry [facility] ([id number]) [facility] PROTHROMBIN TIME / INR 2020-03-21 20:19:00 Myles Harry [facility] N-TERMINAL PRO-BNP 2020-03-21 20:19:00 Myles Harry [facility] CORONAVIRUS COVID-19 2020-03-21 20:19:[address] [facility] EKG-12 LEAD 2020-03-21 20:11:[address] [facility] POCT GLUCOSE (AUTOMATED) 2020-03-07 20:56:00 Sarah Harrell [facility] acute hospital POCT GLUCOSE (AUTOMATED) 2020-03-07 15:34:00 Sarah Harrell [facility] acute [facility] POCT GLUCOSE (AUTOMATED) 2020-03-07 12:56:[address] [facility] URIC ACID 2020-03-07 10:14:[address] [facility] TROPONIN I 2020-03-07 10:14:00 Lulu Harris Mcfaddin o [facility] BASIC METABOLIC PANEL 2020-03-07 10:14:00 Sarah Harrell [facility] (NA, K, CL, CO2, GLUCOSE, Medica l Branch BUN, CREATININE, CA) CBC WITH DIFFERENTIAL 2020-03-07 10:14:00 Julio Cesar [facility] N-TERMINAL PRO-BNP 2020-03-07 10:14:00 Lulu Harris [facility] POCT GLUCOSE (AUTOMATED) 2020-03-06 21:16:00 Edionrosalio [facility] POCT GLUCOSE (AUTOMATED) 2020-03-06 16:10:00 Edionrosalio [facility] POCT GLUCOSE (AUTOMATED) 2020-03-06 12:38:00 Edconsuelo [facility] TROPONIN I 2020-03-06 08:51:00 Lulu Harris [facility] BASIC METABOLIC PANEL 2020-03-06 08:51:00 [facility] (NA, K, CL, CO2, GLUCOSE, Medica l Branch BUN, CREATININE, CA) CBC WITH DIFFERENTIAL 2020-03-06 08:51:00 Julio Cesar [facility] POCT GLUCOSE (AUTOMATED) 2020-03-06 01:16:00 Edconsuelo [facility] TROPONIN I 2020-03-05 23:25:00 Edconsuelo [facility] POCT GLUCOSE (AUTOMATED) 2020-03-05 21:14:00 Edconsuelo [facility] POCT GLUCOSE (AUTOMATED) 2020-03-05 16:39:00 Edionrosalio [facility] POCT GLUCOSE (AUTOMATED) 2020-03-05 12:47:00 Edionrosalio [facility] TROPONIN I 2020-03-05 09:50:00 [facility] BASIC METABOLIC PANEL 2020-03-05 09:50:00 [facility] (NA, K, CL, CO2, GLUCOSE, Medica l Branch BUN, CREATININE, CA) CBC WITH DIFFERENTIAL 2020-03-05 09:50:00 [facility] 2020-03-05 00:36:54 Bobo Urrutia [facility] EKG-12 LEAD 2020-03-05 00:31:03 Bobo Urrutia [facility] CORONAVIRUS COVID-19 2020-03-05 00:03:00 Charanjit Heck [facility] TESTING [facility] XR CHEST 1 VW 2020-03-04 23:58:59 Charanjit Heck [facility] LIPASE 2020-03-04 23:29:00 Charanjit Heck [facility] TROPONIN I 2020-03-04 23:29:00 Charanjit Heck [facility] HEPATIC FUNCTION PANEL 2020-03-04 23:29:00 Charanjit Heck [facility] ([id number]) (ALB,T.PRO,BILI Medical Branch T,BU/BC,ALT,AST,ALK PHOS) BASIC METABOLIC PANEL 2020-03-04 23:29:00 Charanjit Heck [facility] (NA, K, CL, CO2, GLUCOSE, Medica l Branch BUN, CREATININE, CA) CBC WITH DIFFERENTIAL 2020-03-04 23:29:00 Charanjit Heck [facility] PROTHROMBIN TIME / INR 2020-03-04 23:29:00 Charanjit Heck [facility] ACTIVATED PARTIAL 2020-03-04 23:29:00 Charanjit Heck [facility] N-TERMINAL PRO-BNP 2020-03-04 23:29:00 Charanjit Heck [facility] EKG-12 LEAD 2020-03-04 23:15:42 Charanjit Heck [facility] EKG-12 LEAD 2020-03-04 23:10:23 Charanjit Heck [facility] EMERGENCY DEPARTMENT 2020-03-04 05:01:00 Doctor Unassigned, [facility] DOCUMENTS [place] [facility] POCT GLUCOSE (AUTOMATED) 2020-03-02 15:52:00 Lulu Harris [facility] POCT GLUCOSE (AUTOMATED) 2020-03-02 12:39:00 Lulu Harris [facility] acute [facility] MAGNESIUM 2020-03-02 08:57:00 Carolyn, [facility] BASIC METABOLIC PANEL 2020-03-02 08:57:00 Carolyn [facility] (NA, K, CL, CO2, GLUCOSE, Medica l Branch BUN, CREATININE, CA) N-TERMINAL PRO-BNP 2020-03-02 08:57:00 Carolyn [facility] POCT GLUCOSE (AUTOMATED) 2020-03-01 20:39:00 Lulu Harris [facility] acute [facility] MAGNESIUM 2020-03-01 08:43:00 [facility] 2020-03-01 08:43:00 Carolyn [facility] BASIC METABOLIC PANEL 2020-03-01 08:43:00 Lulu Harris [facility] (NA, K, CL, CO2, GLUCOSE, Medica l Branch BUN, CREATININE, CA) CBC WITH DIFFERENTIAL 2020-03-01 08:43:00 Steven [facility] N-TERMINAL PRO-BNP 2020-03-01 08:43:00 Carolyn [facility] VITAMIN B12, LEVEL 2020-03-01 03:49:00 Carolyn [facility] FOLATE 2020-03-01 03:49:00 Carolyn [facility] SEDIMENTATION RATE 2020-03-01 03:49:00 Carolyn [facility] POCT GLUCOSE (AUTOMATED) 2020-03-01 03:39:00 Lulu Harris [facility] acute [facility] PHOSPHORUS 2020-03-01 02:28:00 Steven [facility] URIC ACID 2020-03-01 02:28:00 Carolyn [facility] TROPONIN I 2020-03-01 02:28:00 Carolyn [facility] HEPATIC FUNCTION PANEL 2020-03-01 02:28:00 Carolyn alek [facility] ([id number]) (ALB,T.PRO,BILI Medical Branch T,BU/BC,ALT,AST,ALK PHOS) PROTHROMBIN TIME / INR 2020-03-01 02:28:00 Ivory Leon [facility] N-TERMINAL PRO-BNP 2020-03-01 02:28:00 Lulu Harris [facility] PROCALCITONIN 2020-03-01 02:28:00 Carolyn [facility] EKG-12 LEAD 2020-03-01 01:54:29 Carolyn [facility] EKG-12 LEAD 2020-02-29 23:16:21 Bobo Urrutia [facility] XR CHEST 1 VW COVID 2020-02-29 23:14:25 Bobo Urrutia [facility] EKG-12 LEAD 2020-02-29 23:13:50 oBbo Urrutia [facility] LACTIC ACID WHOLE BLOOD 2020-02-29 22:21:00 Bobo Urrutia [facility] CORONAVIRUS COVID-19 2020-02-29 22:20:00 Bobo Urrutia [facility] CREATINE KINASE 2020-02-29 22:14:00 Carolyn [facility] URIC ACID 2020-02-29 22:14:00 Carolyn [facility] LIPASE 2020-02-29 22:14:00 Bobo Urrutia [facility] MAGNESIUM 2020-02-29 22:14:00 Carolyn [facility] TROPONIN I 2020-02-29 22:14:00 Bobo Urrutia [facility] THYROID STIMULATING 2020-02-29 22:14:00 Carolyn [facility] HORMONE [facility] BASIC METABOLIC PANEL 2020-02-29 22:14:00 Bobo Urrutia [facility] (NA, K, CL, CO2, GLUCOSE, Medica l Branch BUN, CREATININE, CA) CBC WITH DIFFERENTIAL 2020-02-29 22:14:00 Bobo Urrutia [facility] GLYCOSYLATED HEMOGLOBIN 2020-02-29 22:14:00 Ivory Leon [facility] (A1C) [facility] N-TERMINAL PRO-BNP 2020-02-29 22:14:00 Ivory Leon [facility] EKG-12 LEAD 2020-02-29 21:59:12 Bobo Urrutia [facility] EKG-12 LEAD 2020-02-29 21:48:49 Bobo Urrutia [facility] EMERGENCY DEPARTMENT 2020-02-29 05:01:00 Doctor Unassigned, [facility] DOCUMENTS [facility] POCT GLUCOSE (AUTOMATED) 2020-01-17 18:15:00 Edconsuelo [facility] TROPONIN I 2020-01-17 16:31:00 Julio Cesar [facility] ACTIVATED PARTIAL 2020-01-17 16:31:00 Carolyn [facility] POCT GLUCOSE (AUTOMATED) 2020-01-17 11:56:00 Julio Cesar [facility] TROPONIN I 2020-01-17 09:52:00 Julio Cesar [facility] BASIC METABOLIC PANEL 2020-01-17 09:52:00 [facility] (NA, K, CL, CO2, GLUCOSE, Medica l Branch BUN, CREATININE, CA) CBC WITH DIFFERENTIAL 2020-01-17 09:52:00 [facility] 2020-01-17 09:52:00 [facility]OMATED) 2020-01-16 23:59:00 Julio Cesar [facility] EKG-12 LEAD 2020-01-16 22:15:50 Julio Cesar [facility] TROPONIN I 2020-01-16 20:04:00 Julio Cesar [facility] ACTIVATED PARTIAL 2020-01-16 20:04:00 Ayo Scruggs [facility] POCT GLUCOSE (AUTOMATED) 2020-01-16 17:05:00 Julio Cesar [facility] POCT GLUCOSE (AUTOMATED) 2020-01-16 13:38:00 Edconsuelo [facility] TROPONIN I 2020-01-16 11:11:00 Julio Cesar [facility] LIPID PANEL ([id number])(TOTAL 2020-01-16 11:11:00 Julio Cesar [facility] TRIGLY[facility]ERIDES, HDL) ACTIVATED PARTIAL 2020-01-16 11:11:[address] [facility] CRITICAL CARE 2020-01-16 05:48:18 Charanjit Heck [facility] XR CHEST 1 VW 2020-01-16 04:46:44 Charanjit Heck [facility] TROPONIN I 2020-01-16 04:38:00 Umang Charanjit [facility] HEPATIC FUNCTION PANEL 2020-01-16 04:38:00 Charanjit Heck [facility] ([id number]) (ALB,T.PRO,BILI Medical Branch T,BU/BC,ALT,AST,ALK PHOS) BASIC METABOLIC PANEL 2020-01-16 04:38:00 Umang Charanjit [facility] (NA, K, CL, CO2, GLUCOSE, Medica l Branch BUN, CREATININE, CA) CBC WITH DIFFERENTIAL 2020-01-16 04:38:00 Umang Charanjit [facility] GLYCOSYLATED HEMOGLOBIN 2020-01-16 04:38:00 [facility] PROTHROMBIN TIME / INR 2020-01-16 04:38:00 Charanjit Heck [facility] ACTIVATED PARTIAL 2020-01-16 04:38:00 Umang [facility] N-TERMINAL PRO-BNP 2020-01-16 04:38:00 Charanjit Heck [facility] EKG-12 LEAD 2020-01-16 04:37:48 Umang Charanjit [facility] EKG-12 LEAD 2020-01-16 04:35:35 Umang Charanjit [facility] AUTHORIZATION FOR RELEASE 2019-07-12 05:01:00 Doctor Unassigned, [facility] Encounters Start End Encounter Admission Attending Care Care Encounter Source Date/Time Date/Time Type Type Clinicians Facility Department ID 2021-12-16 Inpatient SERA Villavicencio [id number] [facility] 11:30:00 Jim [facility] 2021-12-16 Outpatient [facility]LMLC ST[facility]C [id number] 09:19[facility]01 [facility] 2021-12-11 Outpatient Lester, STLMLC STLMLC [id number] 14:38:21 [facility]e [facility] 2021-12-11 Outpatient Lester, STLMLC STLMLC [id number] 11:50:18 [facility] 2021-09-16 Emergency [facility] [id number] Univers 00:23:34 ity [facility] 2021-09-13 Emergency [facility] [id number] [facility] [id number] Univers 05:40:48 [facility] 2021-12-25 2021-12-25 Inpatient ATTAR, [facility] [id number] [place] 00:00:00 00:00:00 [address] 2021-12-19 2021-12-25 Inpatient LAUREN, [facility] [id number] [place] 00:00:00 00:00:00 JAYSON [address] 2021-12-24 2021-12-24 ambulatory [facility]LMLC [facility]C [id number] [facility] 2021-12-20 2021-12-20 Inpatient ATTAR, [facility] [id number] [place] 00:00:00 00:00:00 [address] 2021-12-17 2021-12-17 ambulatory STLMLC STLMLC [id number] [facility] 2021-12-16 2021-12-16 ambulatory STLMLC STLMLC [id number] [facility] 2021-11-19 2021-11-19 Jose Alejandro JONES [id number] Univers 00:00:00 00:00:00 Only Unassigned, ASHLEIGH [id number] ity of [facility] [id number] [place] [id number] [facility] 009 Branch 2021-11-04 2021-11-04 Transition SHAREE Maria [id number] Univers 00:00:00 00:00:00 of Care Supa GRE[place] [id number] [id number] [id number] [facility] 403 Branch 2021-10-30 2021-11-02 Inpatient X ALYSSA [facility] ZEFERINO [id number] Univers 19:14:00 18:15:00 AIDA ity of [facility] 2021-10-30 2021-11-02 [facility] 1.2.840. [id number] Univers 19:14:00 18:15:00 Encounter Aida Shah [id number] [place] [id number] [facility] 081 Branch 2021-05-17 2021-05-17 Letter PcpROBERT [id number] Univers 00:00:00 00:00:00 (Out) Patient ASHLEIGH [id number] it y of [place] Not HOSPITAL [place].2.[place] A [id number] [facility] 019 Branch 2021-04-25 2021-04-25 Emergency Cece, TRAUMA [id number] Univers 10:43:00 17:38:00 [facility] [id number] i ty [place] [id number] [facility] 014 Branch 2020-06-26 2020-06-26 Emergency [facility] [id number] 03:50:00 06:45:00 Martha Cortez [id number] [place] 4.2.7.2.686 [place] [id number] [facility] 2020-06-26 2020-06-26 Emergency [facility], [facility] [id number] Univers 03:50:00 06:45:00 Martha Cortez [id number] ity of [place] 4.2.7.2.686 [facility] [id number] [address] 2020-05-24 2020-05-24 Emergency Heck, [facility] [id number] 06:40:47 10:54:00 Charanjit Cortez [id number] [place] 4.2.7.2.686 [place] [id number] [facility] 2020-05-24 2020-05-24 Emergency [facility] [id number] [facility] 06:40:47 10:54:00 Charanjit Cortez [id number] i ty of [place] 4.2.7.2.686 [facility] [id number] [address] 2020-03-29 2020-03-29 Jamel Dunn [id number] 00:00:00 00:00:00 (Out) T [place] [id number] [facility] [id number] [facility] 2020-03-29 2020-03-29 Jamel Dunn [id number] Univers 00:00:00 00:00:00 (Out) T Ashleigh [id number] it y of [facility] 4.2.7.2.686 [place] [phone] [address] 2020-03-26 2020-03-26 Transition Sharee George [id number] 00:00:00 00:00:00 of Care Sherrell Grewal [id number] [place] 4.2.7.2.686 [id number] [facility] 2020-03-26 2020-03-26 Transition Sharee George [id number] [facility] 00:00:00 00:00:00 of Care Sherrell Grewal [id number] it y of [place] [id number] [facility] 403 [place] 2020-03-22 2020-03-23 Emergency Sallie Eckert 1.2.840. 114 [id number] Univers 18:02:47 21:55:00 Jamel Flores [id number] ity of [facility] [id number] [place] [id number] [place] [id number] [place] 2020-03-22 2020-03-23 Outpatient X JAMEL FLORES [facility] [id number] Univers 18:02:47 21:55:00 ity of [facility] 2020-03-21 2020-03-21 Emergency [facility] [id number] Univers 15:02:08 17:16:00 Myles Sharon Cortez [id number] i ty [place] [id number] [address] 2020-03-21 2020-03-21 Emergency X [facility] ERT [id number] Univers 15:02:08 17:16:00 MYLES ity of [facility] 2020-03-13 2020-03-13 Outpatient Raju_P [facility] MMG [id number] [place] 05:24:00 05:24:00 [id number] [facility] 2020-03-08 2020-03-08 Transition Sharee Cool [id number] Univers 00:00:00 00:00:00 of Care Prema Grewal 350.1.13.10 [place] [phone] [facility] [address] 2020-03-04 2020-03-07 [facility] Charanjit Heck [facility] 1.2.840.1 14 [id number] Univers 18:01:05 18:00:00 Encounter Sarah Harrell 350.1.13.10 [place] [phone] [address] 2020-03-04 2020-03-07 Inpatient X JULIO CESAR [facility] [id number] Univers 18:01:05 18:00:00 SARAH leon [facility] 2020-03-03 2020-03-03 Transition Sharee Silva 1.2.840.114 [id number] Univers 00:00:00 00:00:00 of Care Isatu Grewal 350.1.13.10 it [place] [phone] [facility] [address] 2020-02-29 2020-03-02 [facility] Bobo Urrutia [facility] 1.2.840.11 [id number] Univers 16:53:09 12:18:00 Encounter Lulu Harris 350.1.13.10 [place] of [place] [phone] [facility] [address] 2020-02-29 2020-03-02 Inpatient X ARPITAUDREY [facility] [id number] Univers 16:53:09 12:18:00 LULU margarethazra [facility] 2020-02-15 2020-02-15 [facility] [id number] Univers 11:30:00 11:30:00 THUYDANIELLA [facility] 2020-02-15 2020-02-15 [facility] 1.2.840.114 [id number] Univers 08:13:42 08:43:42 ne Visit Kathrin Cortez 350.1.13.10 [place] [facility] [phone] Al dical nal 220 [facility] 2020-01-18 2020-01-18 Transition Sharee Harvey 1.2.840.114 [id number] Univers 00:00:00 00:00:00 of Care Ana M Grewal 350.1.13.10 [id number] [address] 2020-01-15 2020-01-17 [facility] Charanjit Heck [facility] 1.2.840.1 14 [id number] Univers 22:33:37 16:58:00 Encounter Sarah Harrell 350.1.13.10 ity of [place] 4.2.7.2.686 [facility] [phone] [facility] [address] 2020-01-15 2020-01-17 [facility] [id number] Univers 22:33:37 16:58:00 BRIGIDAY ity of [facility] 2019-10-07 2019-10-07 [facility] [id number] 10:48:00 10:48:00 [facility] 2019-10-05 2019-10-05 [facility] [id number] 16:06:00 16:06:00 [facility] 2019-07-27 2019-07-27 [facility] 1.2.840.114 [id number] Univers 00:00:00 00:00:00 [facility] 350.1.13.10 i ty [facility] 4.2.7.2.686 [facility] [phone] Al dical pending sale to [facility] [address] [facility] 2019-07-12 2019-07-12 [facility] [id number] 16:24:00 16:24:00 [facility] 2019-07-12 2019-07-12 Orders Doctor JONES 1.2.840.114 [id number] Univers 00:00:00 00:00:00 Only Unassigned, ASHLEIGH 350.1.13.10 ity of [place] [facility] 4.2.7.2.686 [place] [phone] [facility] [address] 2019-07-06 2019-07-06 [facility] [id number] 14:00:00 14:00:00 [facility] Clin[facility] Results Test Description Test Time Test Comments Results Result Comments Source SARS-CoV-2 (COVID-19) RNA [Presence] in Respiratory sp ecimen by 2021-12-20 07:04:48 ERI with probe detection Test Item Value Reference Range Interpretation Comme nts SARS-CoV-2 (COVID-19) RNA [Presence] in Respiratory Not detected No t-Detected specimen by ERI with probe detection (test code = 67116-7) 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 LEAD ROUTINE [id number] 22:37:57 Test Item Value Reference Range Interpretation Comments Lab Interpretation (test code = Abnormal 81260-8) [facility])2021-11-02 17:43:02 Test Item Value Reference Range Interpretation Comments POCT GLU (test code = 3123093648) 264 mg/dL 70-110 H Lab Interpretation (test code = Abnormal 01656-9) [facility]TR[facility] [id number] 15:07:47 Test Item Value Reference Interpretation Comments Range TROPONIN I (test 0.064 ng/mL See_Comment H [Automated code = 1321016388) message] The system which generated this result [...] biotin. Lab Interpretation Abnormal (test code = 11927-3) [facility]MINAL [id number] 15:04:26 Test Item Value Reference Range Interpretation Comments NT-proBNP (test code 800 pg/mL See_Comment H [Autom ated = 8122111817) message] The system which generated this result transmitted reference range : <=450. The reference range was not used to interpret this result as normal/abnormal . ALYSSA (test code = ALYSSA) Biotin has been reported to cause a negative bias, interpret results relative to patient's use of biotin. Lab Interpretation Abnormal (test code = 27578-7) [facility])2021-11-02 13:36:38 Test Item Value Reference Range Interpretation Comments POCT GLU (test code = 9146813703) 185 mg/dL 70-110 H Lab Interpretation (test code = Abnormal 22965-8) [facility] MET[facility]OLIC PANEL (NA, K, CL, CO2, GLUCOSE, BUN, CREATININE, CA)2021-11-02 10:26:43 Test Item Value Reference Range Interpretation Comments NA (test code = 136 mmol/L 135-145 7085866589) K (test code = 4.0 mmol/L 3.5-5.0 7864095968) CL (test code = 99 mmol/L 98-108 4994547800) CO2 TOTAL (test code = 27 mmol/L 23-31 2030491869) AGAP (test code = 2-16 1955200902) BUN (test code = 30 mg/dL 7-23 H 3538255633) GLUCOSE (test code = 165 mg/dL 70-110 H 3769458150) CREATININE (test code = 1.42 mg/dL 0.60-1.25 H 6562011549) CALCIUM (test code = 9.5 mg/dL 8.6-10.6 3212904948) eGFR (test code = mL/min/1.73m2 9746941664) ALYSSA (test code = ALYSSA) Association of [...] tests). Lab Interpretation Abnormal (test code = 52168-2) [facility] WITH [id number] 10:01:58 Test Item Value Reference Range Interpretation Comments WBC (test code = See_Comment [Automated 6003-2) message] The sy stem which generated this result transmitted reference range : 4.20 - 10.70 10*3/?L. The reference range was not used to interpret this result as normal/abnormal . RBC (test code = See_Comment L [Automated 130-8) message] The sy stem which generated this [...] RDW-SD (test code = 39.8 fL 38.5-51.6 24471-8) RDW-CV (test code = 11.5 % 12.1-15.4 L 788-0) PLT (test code = See_Comment [Automated 777-3) message] The sy stem which generated this result transmitted reference range : 150 - 328 10*3/ ?L. The reference r corey was not used to interpret this result as normal/abnormal . MPV (test code = 10.5 fL 9.8-13.0 01569-8) NRBC/100 WBC (test See_Comment [Automat ed code = 5505364762) message] The system which generated this result transmitted reference range : 0.0 - 10.0 /100 WBCs. The refer ence range was not u sed to interpret th is result as normal/abnormal . NRBC x10^3 (test code <0.01 See_Comment [Auto mated = 7440066132) message] The s ystem which generated this result transmitted reference range : 10*3/?L. The reference range was not used to interpret this result as normal/abnormal . GRAN MAT (NEUT) % 59.3 % (test code = 770-8) IMM GRAN % (test code 0.30 % = 6510212982) LYMPH % (test code = 25.0 % 736-9) MONO % (test code = 10.7 % 5905-5) EOS % (test code = 4.1 % 713-8) BASO % (test code = 0.6 % 706-2) GRAN MAT x10^3(ANC) 4.19 10*3/uL 1.99-6.95 (test code = 9112634243) IMM GRAN x10^3 (test <0.03 0.00-0.06 code = 5378023397) LYMPH x10^3 (test code 1.77 10*3/uL 1.09-3.23 = 731-0) MONO x10^3 (test code 0.76 10*3/uL 0.36-1.02 = 742-7) EOS x10^3 (test code = 0.29 10*3/uL 0.06-0.53 711-2) BASO x10^3 (test code 0.04 10*3/uL 0.01-0.09 = 704-7) Lab Interpretation Abnormal (test code = 14311-4) [facility] GLUCOSE (AUTOMATED)2021-11-02 01:29:56 Test Item Value Reference Range Interpretation Comments POCT GLU (test code = 6919171683) 167 mg/dL 70-110 H Lab Interpretation (test code = Abnormal 89615-2) [facility] GLUCOSE (AUTOMATED)2021-11-01 17:40:19 Test Item Value Reference Range Interpretation Comments POCT GLU (test code = 7265248600) 193 mg/dL 70-110 H Lab Interpretation (test code = Abnormal 30601-5) [facility] GLUCOSE (AUTOMATED)2021-11-01 13:44:28 Test Item Value Reference Range Interpretation Comments POCT GLU (test code = 5693643439) 200 mg/dL 70-110 H Lab Interpretation (test code = Abnormal 72953-4) [facility] GLUCOSE (AUTOMATED)2021-11-01 01:38:43 Test Item Value Reference Range Interpretation Comments POCT GLU (test code = 2837991684) 177 mg/dL 70-110 H Lab Interpretation (test code = Abnormal 49194-6) [facility] GLUCOSE (AUTOMATED)2021-10-31 22:39:43 Test Item Value Reference Range Interpretation Comments POCT GLU (test code = 5796074502) 174 mg/dL 70-110 H Lab Interpretation (test code = Abnormal 97831-0) [facility] GLUCOSE (AUTOMATED)2021-10-31 17:40:22 Test Item Value Reference Range Interpretation Comments POCT GLU (test code = 4485306166) 224 mg/dL 70-110 H Lab Interpretation (test code = Abnormal 15806-6) [id number] 17:14:58 Test Item Value Reference Interpretation Comments Range TROPONIN I (test 0.080 ng/mL See_Comment H [Automated code = 9853270734) message] The system which generated this result [...] biotin. Lab Interpretation Abnormal (test code = 07778-1) [facility]MINAL [id number] 15:14:03 Test Item Value Reference Range Interpretation Comments NT-proBNP (test code 474 pg/mL See_Comment H [Autom ated = 0228234468) message] The system which generated this result transmitted reference range : <=450. The reference range was not used to interpret this result as normal/abnormal . ALYSSA (test code = ALYSSA) Biotin has been reported to cause a negative bias, interpret results relative to patient's use of biotin. Lab Interpretation Abnormal (test code = 74692-0) [facility] HospitalLIPID PANEL (69537)(TOTAL CHOLESTEROL, TRIGLYCERIDES, HDL)2021-10-31 15:05:19 Test Item Value Reference Range Interpretation Comments CHOL (test code = 101 mg/dL 120-200 L 2684004106) HDL (test code = 36 mg/dL >40 L 6398922052) HDLC RATIO (test code = See_Comment [Au tomated message] 2069787434) The system doubleTwist generated this result transmit diamante reference range : <=5.0. The refe rence range was not u sed to interpret th is result as normal/abnormal . TRIG (test code = 143 mg/dL 30-170 9049858818) LDL CHOL (test code = 36 mg/dL See_Comment [Auto mated message] 97051-1) The system doubleTwist generated this result transmit diamante reference range : <=160. The refe rence range was not u sed to interpret th is result as normal/abnormal . VLDL (test code = 29 mg/dL 5-60 3569881019) Lab Interpretation (test Abnormal code = 54780-0) [facility] (AUTOMATED)2021-10-31 13:44:00 Test Item Value Reference Range Interpretation Comments POCT GLU (test code = 6207272557) 150 mg/dL 70-110 H Lab Interpretation (test code = Abnormal 95850-0) [facility] with [id number] 11:13:14 Test Item Value Reference Range Interpretation [...] RDW-SD (test code = 39.9 fL 38.5-51.6 70465-0) RDW-CV (test code = 11.8 % 12.1-15.4 L 788-0) PLT (test code = See_Comment [Automated 777-3) message] The sy stem which generated this result transmitted reference range : 150 - 328 10*3/ ?L. The reference r corey was not used to interpret this result as normal/abnormal . MPV (test code = 11.0 fL 9.8-13.0 26178-3) NRBC/100 WBC (test See_Comment [Automat ed code = 0213366596) message] The system which generated this result transmitted reference range : 0.0 - 10.0 /100 WBCs. The refer ence range was not u sed to interpret th is result as normal/abnormal . NRBC x10^3 (test code <0.01 See_Comment [Auto mated = 1131199564) message] The s [employer] which generated this result transmitted reference range : 10*3/?L. The reference range was not used to interpret this result as normal/abnormal . GRAN MAT (NEUT) % 64.3 % (test code = 770-8) IMM GRAN % (test code 0.30 % = 6936575489) LYMPH % (test code = 21.7 % 736-9) MONO % (test code = 10.0 % 5905-5) EOS % (test code = 3.1 % 713-8) BASO % (test code = 0.6 % 706-2) GRAN MAT x10^3(ANC) 4.35 10*3/uL 1.99-6.95 (test code = 6602119764) IMM GRAN x10^3 (test <0.03 0.00-0.06 code = 1677480598) LYMPH x10^3 (test code 1.47 10*3/uL 1.09-3.23 = 731-0) MONO x10^3 (test code 0.68 10*3/uL 0.36-1.02 = 742-7) EOS x10^3 (test code = 0.21 10*3/uL 0.06-0.53 711-2) BASO x10^3 (test code 0.04 10*3/uL 0.01-0.09 = 704-7) Lab Interpretation Abnormal (test code = 85431-7) [facility] HospitalWENDY [id number] 11:09:53 Test Item Value Reference Interpretation Comments Range TROPONIN I (test 0.101 ng/mL See_Comment H [Automated code = 8861276929) message] The system which generated this result [...] biotin. Lab Interpretation Abnormal (test code = 10526-4) [facility] Metabolic Panel (NA, K, CL, CO2, GLUCOSE, BUN, CREATININE, CA)2021-10-31 10:59:31 Test Item Value Reference Range Interpretation Comments NA (test code = 139 mmol/L 135-145 5276189212) K (test code = 4.1 mmol/L 3.5-5.0 4659474973) CL (test code = 103 mmol/L 98-108 9773912431) CO2 TOTAL (test code = 28 mmol/L 23-31 5847866847) AGAP (test code = 2-16 6991873226) BUN (test code = 43 mg/dL 7-23 H 5915003775) GLUCOSE (test code = 165 mg/dL 70-110 H 8197530051) CREATININE (test code = 1.68 mg/dL 0.60-1.25 H 7771582512) CALCIUM (test code = 9.6 mg/dL 8.6-10.6 8934098936) eGFR (test code = mL/min/1.73m2 9045764038) ALYSSA (test code = ALYSSA) Association of [...] tests). Lab Interpretation Abnormal (test code = 64701-4) [facility] HospitalGlycosylated Hemoglobin (A1C)2021-10-31 09:13:40 Test Item Value Reference Range Interpretation Comments HGB A1C (test code = 6.8 % 4.0-5.7 H 4548-4) ALYSSA (test code = ALYSSA) Reference RangesNormal: <5.7%Prediabetes: 5.7 - 6.4%Diabetes: > 6.5% Lab Interpretation (test Abnormal code = 66018-6) [facility] [id number] 06:48:18 Test Item Value Reference Interpretation Comments Range TROPONIN I (test 0.082 ng/mL See_Comment H [Automated code = 8953594691) message] The system which generated this result [...] biotin. Lab Interpretation Abnormal (test code = 58662-2) [facility] [id number] 02:09:48 Test Item Value Reference Interpretation Comments Range TROPONIN I (test 0.067 ng/mL See_Comment H [Automated code = 6119508607) message] The system which generated this result [...] biotin. Lab Interpretation Abnormal (test code = 41589-4) [facility] HospitalN-[facility]MINAL [id number] 02:06:31 Test Item Value Reference Range Interpretation Comments NT-proBNP (test code 318 pg/mL See_Comment [Autom ated = 6767715130) message] The system which generated this result transmitted reference range : <=450. The reference range was not used to interpret this result as normal/abnormal . ALYSSA (test code = ALYSSA) Biotin has been reported to cause a negative bias, interpret results relative to patient's use of biotin. Lab Interpretation Normal (test code = 94974-6) [facility]. METABOLIC PANEL (92662)2021-10-31 01:58:28 Test Item Value Reference Range Interpretation Comments NA (test code = 137 mmol/L 135-145 9779459217) K (test code = 4.1 mmol/L 3.5-5.0 5683465994) CL (test code = 101 mmol/L 98-108 9502622234) CO2 TOTAL (test code = 26 mmol/L 23-31 0941008043) AGAP (test code = 2-16 8724057210) BUN (test code = 46 mg/dL 7-23 H 1437869252) GLUCOSE (test code = 213 mg/dL 70-110 H 3743847791) CREATININE (test code = 1.96 mg/dL 0.60-1.25 H 1966736428) TOTAL BILI (test code = 0.9 mg/dL 0.1-1.4 3797870781) CALCIUM (test code = 9.7 mg/dL 8.6-10.6 1922274571) T PROTEIN (test code = 7.0 g/dL 6.3-8.2 4225146192) ALBUMIN (test code = 4.3 g/dL 3.5-5.0 4585518153) ALK PHOS (test code = 58 U/L 34-122 4835573214) ALTv (test code = 20 U/L 5-50 1742-6) AST(SGOT) (test code = 27 U/L 13-40 5758282744) eGFR (test code = mL/min/1.73m2 0871095840) ALYSSA (test code = ALYSSA) Association of [...] tests). Lab Interpretation Abnormal (test code = 19509-7) [facility] HospitalLIPASE, [id number] 01:57:48 Test Item Value Reference Range Interpretation Comments LIPASE (test code = 0146121442) 330 U/L 0-220 H Lab Interpretation (test code = Abnormal 42453-3) [facility] HospitalaPTT2021-12-16 01:55:04 Test Item Value Reference Range Interpretation Comments APTT Patient (test See_Comment [Automat ed code = 3173-2) message] The system which generated this result transmitted reference range : 23 - 38 Seconds . The reference range was not used to interpr et this result as normal/abnormal . ALYSSA (test code = ALYSSA) The [facility] patient population mean normal value for aPTT is 30 seconds. Lab Interpretation Normal (test code = 98109-6) [facility] HospitalPROTHROMBIN TIME / [id number] 01:53:08 Test Item Value Reference Range Interpretation [...] tions. Lab Interpretation (test Normal code = 84667-5) [facility] HospitalCBC WITH [id number] 01:45:44 Test Item Value Reference Range Interpretation Comments WBC (test code = See_Comment [Automated 0390-2) message] The sy stem which generated this result transmitted reference range : 4.20 - 10.70 10*3/?L. The reference range was not used to interpret this result as normal/abnormal . RBC (test code = See_Comment L [Automated 479-8) message] The sy stem which generated this [...] RDW-SD (test code = 39.1 fL 38.5-51.6 13224-6) RDW-CV (test code = 11.6 % 12.1-15.4 L 788-0) PLT (test code = See_Comment [Automated 777-3) message] The sy stem which generated this result transmitted reference range : 150 - 328 10*3/ ?L. The reference r corey was not used to interpret this result as normal/abnormal . MPV (test code = 10.4 fL 9.8-13.0 12466-2) NRBC/100 WBC (test See_Comment [Automat ed code = 5917190420) message] The system which generated this result transmitted reference range : 0.0 - 10.0 /100 WBCs. The refer ence range was not u sed to interpret th is result as normal/abnormal . NRBC x10^3 (test code <0.01 See_Comment [Auto mated = 2695491232) message] The s ystem which generated this result transmitted reference range : 10*3/?L. The reference range was not used to interpret this result as normal/abnormal . GRAN MAT (NEUT) % 62.1 % (test code = 770-8) IMM GRAN % (test code 0.30 % = 5372691506) LYMPH % (test code = 23.4 % 736-9) MONO % (test code = 10.8 % 5905-5) EOS % (test code = 2.9 % 713-8) BASO % (test code = 0.5 % 706-2) GRAN MAT x10^3(ANC) 4.14 10*3/uL 1.99-6.95 (test code = 2768208479) IMM GRAN x10^3 (test <0.03 0.00-0.06 code = 1188994293) LYMPH x10^3 (test code 1.56 10*3/uL 1.09-3.23 = 731-0) MONO x10^3 (test code 0.72 10*3/uL 0.36-1.02 = 742-7) EOS x10^3 (test code = 0.19 10*3/uL 0.06-0.53 711-2) BASO x10^3 (test code 0.03 10*3/uL 0.01-0.09 = 704-7) Lab Interpretation Abnormal (test code = 51808-4) [facility] HospitalURINALYSIS2021-06-10 21:15:48 Test Item Value Reference Range Interpretation Comments APPEARANCE (test code = Clear Clear 1275301232) COLOR (test code = Yellow Yellow 2164740071) PH (test code = 4.8-8.0 0129391947) SP GRAVITY (test code = 1.003-1.030 7157673477) GLU U QUAL (test code = 50 mg/dL Normal A 5631514674) BLOOD (test code = Negative Negative INTERFERE NCE FROM 7757610451) ASCORBIC ACID M AY CAUSE FALSE NEG ATIVE RESULT KETONES (test code = Negative Negative 1883399327) PROTEIN (test code = Negative Negative 2887-8) UROBILIN (test code = Normal Normal 5077062126) BILIRUBIN (test code = Negative Negative 6917162603) NITRITE (test code = Negative Negative 7742389536) LEUK JESS (test code = Negative Negative 8006512985) RBC/HPF (test code = See_Comment [Autom ated message] 1808492268) The system double[employer] generated this result transmitted ref erence range: 0 - 3 HP F. The reference range was not used to int erpret this result as normal/abnormal . WBC/HPF (test code = See_Comment [Autom ated message] 4118953662) The system [employer] generated this result transmitted ref erence range: 0 - 5 HP F. The reference range was not used to int erpret this result as normal/abnormal . BACTERIA (test code = Negative Negative 7588325357) SQ EPITH (test code = <1 See_Comment [Auto mated message] 4784384129) The system [employer] generated this result transmitted ref erence range: <=2 HPF. The reference range was not used to int erpret this result as normal/abnormal . HYAL CAST (test code = See_Comment [Aut omated message] 4763136046) The system [employer] generated this result transmitted ref erence range: <=2 LPF. The reference range was not used to int erpret this result as normal/abnormal . Lab Interpretation (test Abnormal code = 04225-7) [facility] HospitalXR LUMBAR SPINE 2 [id number] 20:30:53 Impression: Postoperative changes. Degenerative changes. No [...] acute fracture or dislocation identified. Atherosclerotic calcifications. Ndmb, Radiant Results Inft User -04/25/2021 3:31 PM [...] acute bony abnormality identified.End of Report.RL: [facility] [facility] HIPS 2 VW [id number] 20:24:52Impression: Postoperative changes. Degenerative changes. No acute [...] clinicalconcern MRI is available.End of Report.RL: [facility] [facility]Basic Metabolic Panel (NA, K, CL, CO2, GLUCOSE, BUN, CREATININE, CA)2020-05-24 14:15:00 Test Item Value Reference Range Interpretation Comments NA (test code = 139 mmol/L 135-145 8489465271) K (test code = 4.1 mmol/L 3.5-5 4064611107) CL (test code = 104 mmol/L 98-108 1371845667) CO2 TOTAL (test code = 26 mmol/L 23-31 4352240236) AGAP (test code = 2-16 7590189395) BUN (test code = 22 mg/dL 7-23 5549137804) GLUCOSE (test code = 203 mg/dL 70-110 H 7173907832) CREATININE (test code = 1.40 mg/dL 0.6-1.25 H 5986916439) CALCIUM (test code = 9.1 mg/dL 8.6-10.6 5500642313) eGFR Calculation mL/min/1.73m2 (Non-) (test code = 0317237391) eGFR Calculation mL/min/1.73m2 () (test code = 9765764197) ALYSSA (test code = ALYSSA) Association of [...] tests). Lab Interpretation Abnormal (test code = 44427-4) [facility] HospitalHepatic Function Panel (ALB, T.PRO, BILI T, BU/BC, ALT, AST, ALK PHOS)2020-05-24 13:54:00 Test Item Value Reference Range Interpretation Comments TOTAL BILI (test code = 3781363170) 0.9 mg/dL 0.1-1.1 BILI UNCON (test code = 6154652150) 1.0 mg/dL 0.1-1.1 BILI CONJ (test code = 6678831308) 0.0 mg/dL 0-0.3 T PROTEIN (test code = 5358689698) 7.0 g/dL 6.3-8.2 ALBUMIN (test code = 4046604213) 4.2 g/dL 3.5-5 ALK PHOS (test code = 0253082605) 49 U/L 34-122 ALTv (test code = 1742-6) 17 U/L 5-50 AST(SGOT) (test code = 3004020128) 25 U/L 13-40 Lab Interpretation (test code = Normal 19958-9) [facility] Hospital[facility]PTT2020-07-09 13:32:00 Test Item Value Reference Range Interpretation Comments APTT Patient (test See_Comment [Automat ed code = 3173-2) message] The system which generated this result transmitted reference range : 23 - 38 Seconds . The reference range was not used to interpr et this result as normal/abnormal . ALYSSA (test code = ALYSSA) The [facility] patient population mean normal value for aPTT is 30 seconds. Lab Interpretation Normal (test code = 68373-6) [facility] HospitalProthrombin Time (PT) / [id number] 13:30:00 Test Item Value Reference Range Interpretation [...] tions. Lab Interpretation (test Normal code = 45521-9) [facility] HospitalCBC WITH [id number] 13:27:00 Test Item Value Reference Range Interpretation [...] RDW-SD (test code = 42.6 fL 38.5-51.6 78822-0) RDW-CV (test code = 12.3 % 12.1-15.4 788-0) PLT (test code = See_Comment [Automated 777-3) message] The sy stem which generated this result transmitted reference range : 150 - 328 10*3/ ?L. The reference r corey was not used to interpret this result as normal/abnormal . MPV (test code = 9.9 fL 9.8-13 55042-3) NRBC/100 WBC (test See_Comment [Automat ed code = 9776742751) message] The system which generated this result transmitted reference range : 0.0 - 10.0 /100 WBCs. The refer ence range was not u sed to interpret th is result as normal/abnormal . NRBC x10^3 (test code <0.01 See_Comment [Auto mated = 2331689056) message] The s ystem which generated this result transmitted reference range : 10*3/?L. The reference range was not used to interpret this result as normal/abnormal . GRAN MAT (NEUT) % 55.1 % (test code = 770-8) IMM GRAN % (test code 0.20 % = 6545311364) LYMPH % (test code = 28.8 % 736-9) MONO % (test code = 11.3 % 5905-5) EOS % (test code = 3.5 % 713-8) BASO % (test code = 1.1 % 706-2) GRAN MAT x10^3(ANC) 3.11 10*3/uL 1.99-6.95 (test code = 5912975519) IMM GRAN x10^3 (test <0.03 0-0.06 code = 7258677697) LYMPH x10^3 (test code 1.63 10*3/uL 1.09-3.23 = 731-0) MONO x10^3 (test code 0.64 10*3/uL 0.36-1.02 = 742-7) EOS x10^3 (test code = 0.20 10*3/uL 0.06-0.53 711-2) BASO x10^3 (test code 0.06 10*3/uL 0.01-0.09 = 704-7) Lab Interpretation Abnormal (test code = 21752-5) [facility] HospitalXR ANKLE 3+ VW [id number] 13:25:58HISTORY: ?Pain. FINDINGS: AP, lateral, oblique views [...] No acute fracture or dislocation in left ankle.[facility] HospitalPOCT GLUCOSE (AUTOMATED)2020-03-23 22:34:00 Test Item Value Reference Range Interpretation Comments POCT GLU (test code = 2648903305) 173 mg/dL 70-110 H Lab Interpretation (test code = Abnormal 23758-2) [facility] GLUCOSE (AUTOMATED)2020-03-23 22:34:00 Test Item Value Reference Range Interpretation Comments POCT GLU (test code = 7700775813) 173 mg/dL 70-110 H Lab Interpretation (test code = Abnormal 43135-8) [facility] GLUCOSE (AUTOMATED)2020-03-23 18:12:00 Test Item Value Reference Range Interpretation Comments POCT GLU (test code = 165 mg/dL 70-110 H Notifi ed Provider [id number]) Lab Interpretation (test Abnormal code = 44017-3) [facility] GLUCOSE (AUTOMATED)2020-03-23 18:12:00 Test Item Value Reference Range Interpretation Comments POCT GLU (test code = 165 mg/dL 70-110 H Notifi ed Provider [id number]) Lab Interpretation (test Abnormal code = 22816-7) [facility] GLUCOSE (AUTOMATED)2020-03-23 15:04:00 Test Item Value Reference Range Interpretation Comments POCT GLU (test code = 114 mg/dL 70-110 H Notifi ed Provider [id number]) Lab Interpretation (test Abnormal code = 04497-7) [facility] GLUCOSE (AUTOMATED)2020-03-23 15:04:00 Test Item Value Reference Range Interpretation Comments POCT GLU (test code = 114 mg/dL 70-110 H Notifi ed Provider [id number]) Lab Interpretation (test Abnormal code = 68216-8) [facility] HospitalFERRITIN [id number] 13:23:00 Test Item Value Reference Range Interpretation Comments FERRITIN (test code = 139.0 ng/mL 18-464 5873246045) ALYSSA (test code = ALYSSA) Biotin has been reported to cause a negative bias, interpret results relative to patient's use of biotin. Lab Interpretation (test Normal code = 21022-9) [facility] HospitalFERRITIN [id number] 13:23:00 Test Item Value Reference Range Interpretation Comments FERRITIN (test code = 139.0 ng/mL 18-464 7593338858) ALYSSA (test code = ALYSSA) Biotin has been reported to cause a negative bias, interpret results relative to patient's use of biotin. Lab Interpretation (test Normal code = 01806-0) [facility] [id number] 12:53:00 Test Item Value Reference Range Interpretation Comments IRON (test code = 0788307031) 87 ug/dL 50-160 TIBC (test code = 6239687326) 385 ug/dL 250-410 % FE SAT (test code = 4601019947) 23 % 20-50 Lab Interpretation (test code = Normal 75888-1) [facility] [id number] 12:53:00 Test Item Value Reference Range Interpretation Comments IRON (test code = 8863946702) 87 ug/dL 50-160 TIBC (test code = 9959687266) 385 ug/dL 250-410 % FE SAT (test code = 9183503676) 23 % 20-50 Lab Interpretation (test code = Normal 66723-5) [place] [id number] 12:07:00 Test Item Value Reference Range Interpretation Comments APTT Patient (test code See_Comment [Au tomated message] = 3173-2) The system doubleTwist generated this result transmitted ref erence range: 26 - 36 Seconds. The reference range was not used to int erpret this result as normal/abnormal . Lab Interpretation (test Abnormal code = 96767-4) [facility] Test Item Value Reference Range Interpretation Comments APTT Patient (test code See_Comment [Au tomated message] = 3173-2) The system doubleTwist generated this result transmitted ref erence range: 26 - 36 Seconds. The reference range was not used to int erpret this result as normal/abnormal . Lab Interpretation (test Abnormal code = 17474-1) [facility] [id number] 11:57:00 Test Item Value Reference Range Interpretation Comments TROPONIN I (test 0.046 ng/mL See_Comment H [Automated code = 1019683651) message] The system which generated this result [...] ? Lab Interpretation Abnormal (test code = 58607-7) [facility] HospitalKATEJr [id number] 11:57:00 Test Item Value Reference Range Interpretation Comments TROPONIN I (test 0.046 ng/mL See_Comment H [Automated code = 0848107845) message] The system which generated this result [...] ? Lab Interpretation Abnormal (test code = 68444-3) [facility] (NA, K, CL, CO2, GLUCOSE, BUN, CREATININE, CA)2020-03-23 11:52:00 Test Item Value Reference Range Interpretation Comments NA (test code = 137 mmol/L 135-145 6446139510) K (test code = 4.1 mmol/L 3.5-5 7818094239) CL (test code = 102 mmol/L 98-108 3738107407) CO2 TOTAL (test code = 26 mmol/L 23-31 2536433131) AGAP (test code = 2-16 5545521888) BUN (test code = 18 mg/dL 7-23 1072547315) GLUCOSE (test code = 119 mg/dL 70-110 H 7917009393) CREATININE (test code = 1.14 mg/dL 0.6-1.25 1854174992) CALCIUM (test code = 9.1 mg/dL 8.6-10.6 2017381660) eGFR Calculation mL/min/1.73m2 (Non-) (test code = 1831291345) eGFR Calculation mL/min/1.73m2 () (test code = 8406114220) ALYSSA (test code = ALYSSA) Association of [...] tests). Lab Interpretation Abnormal (test code = 23573-5) [facility] HospitalMAGNESIUM2020-05-08 11:52:00 Test Item Value Reference Range Interpretation Comments MAGNESIUM (test code = 4728247366) 2.2 mg/dL 1.7-2.4 Lab Interpretation (test code = Normal 94255-2) [facility] METABOLIC PANEL (NA, K, CL, CO2, GLUCOSE, BUN, CREATININE, CA)2020-03-23 11:52:00 Test Item Value Reference Range Interpretation Comments NA (test code = 137 mmol/L 135-145 2725853843) K (test code = 4.1 mmol/L 3.5-5 3704399375) CL (test code = 102 mmol/L 98-108 3813041052) CO2 TOTAL (test code = 26 mmol/L 23-31 6204778688) AGAP (test code = 2-16 7374435989) BUN (test code = 18 mg/dL 7-23 8540775500) GLUCOSE (test code = 119 mg/dL 70-110 H 0085460252) CREATININE (test code = 1.14 mg/dL 0.6-1.25 1608455755) CALCIUM (test code = 9.1 mg/dL 8.6-10.6 9864577289) eGFR Calculation mL/min/1.73m2 (Non-) (test code = 6527026676) eGFR Calculation mL/min/1.73m2 () (test code = 2830210638) ALYSSA (test code = ALYSSA) Association of [...] tests). Lab Interpretation Abnormal (test code = 89271-1) [facility] HospitalMAGNESIUM2020-05-08 11:52:00 Test Item Value Reference Range Interpretation Comments MAGNESIUM (test code = 9435549904) 2.2 mg/dL 1.7-2.4 Lab Interpretation (test code = Normal 37954-0) [facility] HospitalProthrombin Time (PT) / [id number] 11:36:00 Test Item Value Reference Range Interpretation Comments PROTIME PATIENT (test See_Comment [Auto mated message] code = 5964-2) The system [employer] generated this result transmitted ref erence range: 10.1 - 1 2.6 Seconds. The re ference range was not u sed to interpret this result as normal/abnor mal. INR (test code = 6301-6) Nor mal INR <1.1; Warfarin Therap eutic range 2.0 to 3. 0 or 2.5 to 3.5, dep ending upon the indica tions. Lab Interpretation (test Normal code = 71492-6) [facility] HospitalProthrombin Time (PT) / [id number] 11:36:00 Test Item Value Reference Range Interpretation [...] tions. Lab Interpretation (test Normal code = 27365-9) [facility] [id number] 06:38:00 Test Item Value Reference Range Interpretation Comments TROPONIN I (test 0.045 ng/mL See_Comment H [Automated code = 1265701610) message] The system which generated this result [...] ? Lab Interpretation Abnormal (test code = 34930-3) [facility] [id number] 06:38:00 Test Item Value Reference Range Interpretation Comments TROPONIN I (test 0.045 ng/mL See_Comment H [Automated code = 6747811285) message] The system which generated this result [...] ? Lab Interpretation Abnormal (test code = 38107-3) [facility] (NA, K, CL, CO2, GLUCOSE, BUN, CREATININE, CA)2020-03-23 06:29:00 Test Item Value Reference Range Interpretation Comments NA (test code = 137 mmol/L 135-145 3379546819) K (test code = 3.6 mmol/L 3.5-5 7661855565) CL (test code = 101 mmol/L 98-108 7439102246) CO2 TOTAL (test code = 27 mmol/L 23-31 2514797456) AGAP (test code = 2-16 4771101283) BUN (test code = 19 mg/dL 7-23 5334336706) GLUCOSE (test code = 153 mg/dL 70-110 H 9943924260) CREATININE (test code = 1.22 mg/dL 0.6-1.25 7370582621) CALCIUM (test code = 8.9 mg/dL 8.6-10.6 4000848589) eGFR Calculation mL/min/1.73m2 (Non-) (test code = 0620057998) eGFR Calculation mL/min/1.73m2 () (test code = 0260743400) ALYSSA (test code = ALYSSA) Association of [...] tests). Lab Interpretation Abnormal (test code = 69189-9) [facility]MAGNESIUM2020-05-08 06:29:00 Test Item Value Reference Range Interpretation Comments MAGNESIUM (test code = 6290372055) 1.7 mg/dL 1.7-2.4 Lab Interpretation (test code = Normal 85539-7) [facility] HospitalLIPID PANEL (67531)(TOTAL CHOLESTEROL, TRIGLYCERIDES, HDL)2020-03-23 06:29:00 Test Item Value Reference Range Interpretation Comments CHOL (test code = 106 mg/dL 120-200 L 4542835341) HDL (test code = 46 mg/dL >40 6461991632) HDLC RATIO (test code = See_Comment [Au tomated message] 4201970342) The system doubleTwist generated this result transmit diamante reference range : <=5.0. The refe rence range was not u sed to interpret th is result as normal/abnormal . TRIG (test code = 74 mg/dL 30-170 6207591474) LDL CHOL (test code = 45 mg/dL See_Comment [Auto mated message] 04567-9) The system doubleTwist generated this result transmit diamante reference range : <=160. The refe rence range was not u sed to interpret th is result as normal/abnormal . VLDL (test code = 15 mg/dL 5-60 1026030410) Lab Interpretation (test Abnormal code = 90642-3) [facility] METABOLIC PANEL (NA, K, CL, CO2, GLUCOSE, BUN, CREATININE, CA)2020-03-23 06:29:00 Test Item Value Reference Range Interpretation Comments NA (test code = 137 mmol/L 135-145 7686990388) K (test code = 3.6 mmol/L 3.5-5 1540151345) CL (test code = 101 mmol/L 98-108 3200941603) CO2 TOTAL (test code = 27 mmol/L 23-31 8740518058) AGAP (test code = 2-16 2600167025) BUN (test code = 19 mg/dL 7-23 3534172577) GLUCOSE (test code = 153 mg/dL 70-110 H 0036483119) CREATININE (test code = 1.22 mg/dL 0.6-1.25 2346755008) CALCIUM (test code = 8.9 mg/dL 8.6-10.6 8432507015) eGFR Calculation mL/min/1.73m2 (Non-) (test code = 2621650823) eGFR Calculation mL/min/1.73m2 () (test code = 0048575749) ALYSSA (test code = ALYSSA) Association of [...] tests). Lab Interpretation Abnormal (test code = 49078-7) [facility]MAG[facility]UM2020-05-08 06:29:00 Test Item Value Reference Range Interpretation Comments MAGNESIUM (test code = 7086435775) 1.7 mg/dL 1.7-2.4 Lab Interpretation (test code = Normal 08351-6) [facility] HospitalLIPID PANEL (66258)(TOTAL CHOLESTEROL, TRIGLYCERIDES, HDL)2020-03-23 06:29:00 Test Item Value Reference Range Interpretation Comments CHOL (test code = 106 mg/dL 120-200 L 7112780951) HDL (test code = 46 mg/dL >40 3387365509) HDLC RATIO (test code = See_Comment [Au tomated message] 9374499674) The system doubleTwist generated this result transmit diamante reference range : <=5.0. The refe rence range was not u sed to interpret th is result as normal/abnormal . TRIG (test code = 74 mg/dL 30-170 2814461416) LDL CHOL (test code = 45 mg/dL See_Comment [Auto mated message] 98402-6) The system doubleTwist generated this result transmit diamante reference range : <=160. The refe rence range was not u sed to interpret th is result as normal/abnormal . VLDL (test code = 15 mg/dL 5-60 1115715088) Lab Interpretation (test Abnormal code = 27538-6) [facility] HospitalaPTT2020-05-08 03:18:00 Test Item Value Reference Range Interpretation Comments APTT Patient (test code = See_Comment [ Automated message] 3173-2) The system doubleTwist generated this result transmitted ref erence range: 26 - 36 Seconds. The re ference range was not u sed to interpret this result as normal/abnor mal. Lab Interpretation (test Normal code = 55404-9) [facility] 03:18:00 Test Item Value Reference Range Interpretation Comments APTT Patient (test code = See_Comment [ Automated message] 3173-2) The system doubleTwist generated this result transmitted ref erence range: 26 - 36 Seconds. The re ference range was not u sed to interpret this result as normal/abnor mal. Lab Interpretation (test Normal code = 11455-4) [facility] HospitalPROTHROMBIN TIME / [id number] 03:07:00 Test Item Value Reference Range Interpretation Comments PROTIME PATIENT (test See_Comment [Auto mated message] code = 5964-2) The system [employer] generated this result transmitted ref erence range: 10.1 - 1 2.6 Seconds. The re ference range was not u sed to interpret this result as normal/abnor mal. INR (test code = 6301-6) Nor mal INR <1.1; Warfarin Therap eutic range 2.0 to 3. 0 or 2.5 to 3.5, dep ending upon the indica tions. Lab Interpretation (test Normal code = 67398-8) [facility] HospitalPROTHROMBIN TIME / [id number] 03:07:00 Test Item Value Reference Range Interpretation Comments PROTIME PATIENT (test See_Comment [Auto mated message] code = 5964-2) The system [employer] generated this result transmitted ref erence range: 10.1 - 1 2.6 Seconds. The re ference range was not u sed to interpret this result as normal/abnor mal. INR (test code = 6301-6) Nor mal INR <1.1; Warfarin Therap eutic range 2.0 to 3. 0 or 2.5 to 3.5, dep ending upon the indica tions. Lab Interpretation (test Normal code = 18077-7) [facility]XR CHEST 2 [id number] 02:23:32 No acute cardiopulmonary process. Preliminary Report [...] reviewed this study and agree with the abovereport.[facility] 2 [id number] 02:23:32 No acute cardiopulmonary process. Preliminary Report [...] reviewed this study and agree with the abovereport.[facility] BranchCORONAVIRUS COVID-19 [id number] 01:23:00 Test Item Value Reference Range Interpretation Comments SARS-CoV-2 (test code = Not Detected Not Detected 76978-9) ALYSSA (test code = ALYSSA) ID NOW COVID-19 Assay is an isothermal nucleic acid amplification test intended for the qualitative detection of nucleic acid from SARS-CoV-2 viral RNA in nasopharyngeal ([employer] PROJECT MANAGER) specimens. It is used under Emergency Use [...] indicated. Lab Interpretation Normal (test code = 73492-2) [facility] HospitalCORONAVIRUS COVID-19 [id number] 01:23:00 Test Item Value Reference Range Interpretation Comments SARS-CoV-2 (test code = Not Detected Not Detected 33247-7) ALYSSA (test code = ALYSSA) ID NOW COVID-19 Assay is an isothermal nucleic acid amplification test intended for the qualitative detection of nucleic acid from SARS-CoV-2 viral RNA in nasopharyngeal (FACIL[employer]IES PROJECT MANAGER) specimens. It is used under Emergency Use [...] indicated. Lab Interpretation Normal (test code = 62755-7) [facility] HospitalN-TERMINAL [id number] 00:12:00 Test Item Value Reference Range Interpretation Comments NT-proBNP (test code 585 pg/mL See_Comment H [Autom ated = 1405704891) message] The system which generated this result transmitted reference range : <=450. The reference range was not used to interpret this result as normal/abnormal . ALYSSA (test code = ALYSSA) Biotin has been reported to cause a negative bias, interpret results relative to patient's use of biotin. Lab Interpretation Abnormal (test code = 27133-6) [facility] HospitalTROPONIN [id number] 00:12:00 Test Item Value Reference Range Interpretation Comments TROPONIN I (test 0.030 ng/mL See_Comment [Automated code = 6106894417) message] The system which generated this result [...] ? Lab Interpretation Normal (test code = 60279-4) [facility] HospitalN-TERMINAL [id number] 00:12:00 Test Item Value Reference Range Interpretation Comments NT-proBNP (test code 585 pg/mL See_Comment H [Autom ated = 5229182405) message] The system which generated this result transmitted reference range : <=450. The reference range was not used to interpret this result as normal/abnormal . ALYSSA (test code = ALYSSA) Biotin has been reported to cause a negative bias, interpret results relative to patient's use of biotin. Lab Interpretation Abnormal (test code = 92263-6) [facility] HospitalTROPONIN [id number] 00:12:00 Test Item Value Reference Range Interpretation Comments TROPONIN I (test 0.030 ng/mL See_Comment [Automated code = 9332219732) message] The system which generated this result [...] ? Lab Interpretation Normal (test code = 18969-7) [facility]. METABOLIC PANEL (53384)2020-03-23 00:03:00 Test Item Value Reference Range Interpretation Comments NA (test code = 138 mmol/L 135-145 0929107686) K (test code = 4.1 mmol/L 3.5-5 1760281362) CL (test code = 103 mmol/L 98-108 1589650067) CO2 TOTAL (test code = 26 mmol/L 23-31 1491156301) AGAP (test code = 2-16 6841702848) BUN (test code = 18 mg/dL 7-23 5681219795) GLUCOSE (test code = 157 mg/dL 70-110 H 5274538728) CREATININE (test code = 1.19 mg/dL 0.6-1.25 7329118777) TOTAL BILI (test code = 1.1 mg/dL 0.1-1.4 1978382838) CALCIUM (test code = 9.2 mg/dL 8.6-10.6 1688446649) T PROTEIN (test code = 6.8 g/dL 6.3-8.2 5327587257) ALBUMIN (test code = 4.0 g/dL 3.5-5 3500636547) ALK PHOS (test code = 51 U/L 34-122 2029020740) ALTv (test code = 16 U/L 5-50 1742-6) AST(SGOT) (test code = 23 U/L 13-40 7700795853) eGFR Calculation mL/min/1.73m2 (Non-) (test code = 2558840022) eGFR Calculation mL/min/1.73m2 () (test code = 3420826842) ALYSSA (test code = ALYSSA) Association of [...] tests). Lab Interpretation Abnormal (test code = 11049-3) [facility]. METABOLIC PANEL (10265)2020-03-23 00:03:00 Test Item Value Reference Range Interpretation Comments NA (test code = 138 mmol/L 135-145 3104953245) K (test code = 4.1 mmol/L 3.5-5 7725207420) CL (test code = 103 mmol/L 98-108 1932707917) CO2 TOTAL (test code = 26 mmol/L 23-31 3649789277) AGAP (test code = 2-16 4645602195) BUN (test code = 18 mg/dL 7-23 1244299271) GLUCOSE (test code = 157 mg/dL 70-110 H 7619463128) CREATININE (test code = 1.19 mg/dL 0.6-1.25 6412174099) TOTAL BILI (test code = 1.1 mg/dL 0.1-1.2 3678649307) CALCIUM (test code = 9.2 mg/dL 8.6-10.6 4778757544) T PROTEIN (test code = 6.8 g/dL 6.3-8.2 6973617547) ALBUMIN (test code = 4.0 g/dL 3.5-5 4096258471) ALK PHOS (test code = 51 U/L 34-122 7302548150) ALTv (test code = 16 U/L 5-50 1742-6) AST(SGOT) (test code = 23 U/L 13-40 1622897892) eGFR Calculation mL/min/1.73m2 (Non-) (test code = 0955553212) eGFR Calculation mL/min/1.73m2 () (test code = 8671001142) ALYSSA (test code = ALYSSA) Association of [...] tests). Lab Interpretation Abnormal (test code = 31044-6) [facility] WITH [id number] 23:57:00 Test Item Value Reference Range Interpretation Comments WBC (test code = See_Comment [Automated 7130-2) message] The sy stem which generated this result transmitted reference range : 4.20 - 10.70 10*3/?L. The reference range was not used to interpret this result as normal/abnormal . RBC (test code = See_Comment L [Automated 391-8) message] The sy stem which generated this [...] RDW-SD (test code = 49.6 fL 38.5-51.6 38710-2) RDW-CV (test code = 14.6 % 12.1-15.4 788-0) PLT (test code = See_Comment L [Automated 777-3) message] The sy stem which generated this result transmitted reference range : 150 - 328 10*3/ ?L. The reference r corey was not used to interpret this result as normal/abnormal . MPV (test code = 9.9 fL 9.8-13 36212-6) NRBC/100 WBC (test See_Comment [Automat ed code = 6654642044) message] The system which generated this result transmitted reference range : 0.0 - 10.0 /100 WBCs. The refer ence range was not u sed to interpret th is result as normal/abnormal . NRBC x10^3 (test code <0.01 See_Comment [Auto mated = 5719144667) message] The s ystem which generated this result transmitted reference range : 10*3/?L. The reference range was not used to interpret this result as normal/abnormal . GRAN MAT (NEUT) % 55.3 % (test code = 770-8) IMM GRAN % (test code 0.20 % = 5336450231) LYMPH % (test code = 28.3 % 736-9) MONO % (test code = 12.6 % 5905-5) EOS % (test code = 3.1 % 713-8) BASO % (test code = 0.5 % 706-2) GRAN MAT x10^3(ANC) 3.20 10*3/uL 1.99-6.95 (test code = 9789985763) IMM GRAN x10^3 (test <0.03 0-0.06 code = 5847883891) LYMPH x10^3 (test code 1.64 10*3/uL 1.09-3.23 = 731-0) MONO x10^3 (test code 0.73 10*3/uL 0.36-1.02 = 742-7) EOS x10^3 (test code = 0.18 10*3/uL 0.06-0.53 711-2) BASO x10^3 (test code 0.03 10*3/uL 0.01-0.09 = 704-7) Lab Interpretation Abnormal (test code = 05754-2) [facility] WITH [id number] 23:57:00 Test Item Value Reference Range Interpretation [...] RDW-SD (test code = 49.6 fL 38.5-51.6 39167-0) RDW-CV (test code = 14.6 % 12.1-15.4 788-0) PLT (test code = See_Comment L [Automated 777-3) message] The sy stem which generated this result transmitted reference range : 150 - 328 10*3/ ?L. The reference r corey was not used to interpret this result as normal/abnormal . MPV (test code = 9.9 fL 9.8-13 81858-4) NRBC/100 WBC (test See_Comment [Automat ed code = 0706206574) message] The system which generated this result transmitted reference range : 0.0 - 10.0 /100 WBCs. The refer ence range was not u sed to interpret th is result as normal/abnormal . NRBC x10^3 (test code <0.01 See_Comment [Auto mated = 5759441331) message] The s ystem which generated this result transmitted reference range : 10*3/?L. The reference range was not used to interpret this result as normal/abnormal . GRAN MAT (NEUT) % 55.3 % (test code = 770-8) IMM GRAN % (test code 0.20 % = 9334302116) LYMPH % (test code = 28.3 % 736-9) MONO % (test code = 12.6 % 5905-5) EOS % (test code = 3.1 % 713-8) BASO % (test code = 0.5 % 706-2) GRAN MAT x10^3(ANC) 3.20 10*3/uL 1.99-6.95 (test code = 4775972589) IMM GRAN x10^3 (test <0.03 0-0.06 code = 7409869610) LYMPH x10^3 (test code 1.64 10*3/uL 1.09-3.23 = 731-0) MONO x10^3 (test code 0.73 10*3/uL 0.36-1.02 = 742-7) EOS x10^3 (test code = 0.18 10*3/uL 0.06-0.53 711-2) BASO x10^3 (test code 0.03 10*3/uL 0.01-0.09 = 704-7) Lab Interpretation Abnormal (test code = 51028-9) [facility] COVID-19 [id number] 21:48:00 Test Item Value Reference Range Interpretation Comments SARS-CoV-2 (test code = Not Detected Not Detected 95613-2) ALYSSA (test code = ALYSSA) ID NOW COVID-19 Assay is an isothermal nucleic acid amplification test intended for the qualitative detection of nucleic acid from SARS-CoV-2 viral RNA in nasopharyngeal (FACILITIES PROJECT MANAGER) specimens. It is used under Emergency Use [...] indicated. Lab Interpretation Normal (test code = 70160-3) [facility] HospitalTroponin [id number] 21:44:00 Test Item Value Reference Range Interpretation Comments TROPONIN I (test 0.027 ng/mL See_Comment [Automated code = 5952677879) message] The system which generated this result [...] ? Lab Interpretation Normal (test code = 73341-6) [facility] HospitalProthrombin Time (PT) / [id number] 21:41:00 Test Item Value Reference Range Interpretation [...] tions. Lab Interpretation (test Normal code = 89568-9) [facility] HospitalN-TERMINAL [id number] 21:39:00 Test Item Value Reference Range Interpretation Comments NT-proBNP (test code 663 pg/mL See_Comment H [Autom ated = 5148807731) message] The system which generated this result transmitted reference range : <=450. The reference range was not used to interpret this result as normal/abnormal . ALYSSA (test code = ALYSSA) Biotin has been reported to cause a negative bias, interpret results relative to patient's use of biotin. Lab Interpretation Abnormal (test code = 09401-6) [facility] HospitalCOMP. METABOLIC PANEL (20686)2020-03-21 21:37:00 Test Item Value Reference Range Interpretation Comments NA (test code = 139 mmol/L 135-145 9050254695) K (test code = 4.1 mmol/L 3.5-5 0852666992) CL (test code = 102 mmol/L 98-108 5352621971) CO2 TOTAL (test code = 29 mmol/L 23-31 1871601984) AGAP (test code = 2-16 0118604402) BUN (test code = 18 mg/dL 7-23 3623694902) GLUCOSE (test code = 277 mg/dL 70-110 H 1874498310) CREATININE (test code = 1.23 mg/dL 0.6-1.25 0201430168) TOTAL BILI (test code = 1.3 mg/dL 0.1-1.1 H 8896660335) CALCIUM (test code = 9.8 mg/dL 8.6-10.6 7317018456) T PROTEIN (test code = 7.0 g/dL 6.3-8.2 7563726362) ALBUMIN (test code = 4.2 g/dL 3.5-5 0236362756) ALK PHOS (test code = 50 U/L 34-122 5808836564) ALTv (test code = 15 U/L 5-50 1742-6) AST(SGOT) (test code = 22 U/L 13-40 8781214986) eGFR Calculation mL/min/1.73m2 (Non-) (test code = 3663399087) eGFR Calculation mL/min/1.73m2 () (test code = 3038200955) ALYSSA (test code = ALYSSA) Association of [...] tests). Lab Interpretation Abnormal (test code = 54014-2) [facility] HospitalLipase [id number] 21:37:00 Test Item Value Reference Range Interpretation Comments LIPASE (test code = 8213564736) 161 U/L 0-220 Lab Interpretation (test code = Normal 33851-0) [facility] 1 [id number] 20:46:31HISTORY: Chest pain. TECHNIQUE: Portable AP view [...] noted. Mild thoracolumbar scoliosis noted.CONCLUSIONS: Mild cardiomegaly. [facility] HospitalLamnic Acid Whole [id number] 20:43:00 Test Item Value Reference Range Interpretation Comments LACTIC ACID (test code = 1.91 mmol/L 0.3-2.6 4289380342) [facility] GLUCOSE (AUTOMATED)2020-03-07 20:58:00 Test Item Value Reference Range Interpretation Comments POCT GLU (test code = 7967995585) 216 mg/dL 70-110 H Lab Interpretation (test code = Abnormal 32375-0) [facility] GLUCOSE (AUTOMATED)2020-03-07 16:00:00 Test Item Value Reference Range Interpretation Comments POCT GLU (test code = 2219721277) 168 mg/dL 70-110 H Lab Interpretation (test code = Abnormal 26856-5) [facility] GLUCOSE (AUTOMATED)2020-03-07 13:07:00 Test Item Value Reference Range Interpretation Comments POCT GLU (test code = 4836864884) 148 mg/dL 70-110 H Lab Interpretation (test code = Abnormal 62538-7) [facility] HospitalTROPONIN [id number] 11:27:00 Test Item Value Reference Range Interpretation Comments TROPONIN I (test 0.051 ng/mL See_Comment H [Automated code = 9309843460) message] The system which generated this result [...] ? Lab Interpretation Abnormal (test code = 89102-6) [facility] HospitalN-TERMINAL [id number] 11:24:00 Test Item Value Reference Range Interpretation Comments NT-proBNP (test code 336 pg/mL See_Comment [Autom ated = 1125604247) message] The system which generated this result transmitted reference range : <=450. The reference range was not used to interpret this result as normal/abnormal . ALYSSA (test code = ALYSSA) Biotin has been reported to cause a negative bias, interpret results relative to patient's use of biotin. Lab Interpretation Normal (test code = 69450-8) [facility] HospitalBasi Metabolic Panel (NA, K, CL, CO2, GLUCOSE, BUN, CREATININE, CA)2020-03-07 11:14:00 Test Item Value Reference Range Interpretation Comments NA (test code = 138 mmol/L 135-145 8433467500) K (test code = 3.8 mmol/L 3.5-5 9205329202) CL (test code = 97 mmol/L 98-108 L 4629191563) CO2 TOTAL (test code = 30 mmol/L 23-31 1551139825) AGAP (test code = 2-16 5597536272) BUN (test code = 36 mg/dL 7-23 H 8566244235) GLUCOSE (test code = 140 mg/dL 70-110 H 8902496876) CREATININE (test code = 1.50 mg/dL 0.6-1.25 H 3401335849) CALCIUM (test code = 10.0 mg/dL 8.6-10.6 7780963718) eGFR Calculation mL/min/1.73m2 (Non-) (test code = 2173150572) eGFR Calculation mL/min/1.73m2 () (test code = 1258354715) ALYSSA (test code = ALYSSA) Association of [...] tests). Lab Interpretation Abnormal (test code = 01215-7) [facility] BranchUR[facility] [id number] 11:14:00 Test Item Value Reference Range Interpretation Comments URIC ACID (test code = 5109553432) 5.4 mg/dL 3.6-8 Lab Interpretation (test code = Normal 87149-0) [facility] WITH [id number] 10:53:00 Test Item Value Reference Range Interpretation [...] RDW-SD (test code = 45.1 fL 38.5-51.6 87941-3) RDW-CV (test code = 14.2 % 12.1-15.4 788-0) PLT (test code = See_Comment [Automated 777-3) message] The sy stem which generated this result transmitted reference range : 150 - 328 10*3/ ?L. The reference r corey was not used to interpret this result as normal/abnormal . MPV (test code = 9.8 fL 9.8-13 54665-0) NRBC/100 WBC (test See_Comment [Automat ed code = 5553930947) message] The system which generated this result transmitted reference range : 0.0 - 10.0 /100 WBCs. The refer ence range was not u sed to interpret th is result as normal/abnormal . NRBC x10^3 (test code <0.01 See_Comment [Auto mated = 0153931510) message] The s ystem which generated this result transmitted reference range : 10*3/?L. The reference range was not used to interpret this result as normal/abnormal . GRAN MAT (NEUT) % 51.0 % (test code = 770-8) IMM GRAN % (test code 0.50 % = 4078398798) LYMPH % (test code = 32.0 % 736-9) MONO % (test code = 11.3 % 5905-5) EOS % (test code = 4.3 % 713-8) BASO % (test code = 0.9 % 706-2) GRAN MAT x10^3(ANC) 2.85 10*3/uL 1.99-6.95 (test code = 1082955902) IMM GRAN x10^3 (test 0.03 10*3/uL 0-0.06 code = 3470886224) LYMPH x10^3 (test code 1.79 10*3/uL 1.09-3.23 = 731-0) MONO x10^3 (test code 0.63 10*3/uL 0.36-1.02 = 742-7) EOS x10^3 (test code = 0.24 10*3/uL 0.06-0.53 711-2) BASO x10^3 (test code 0.05 10*3/uL 0.01-0.09 = 704-7) Lab Interpretation Abnormal (test code = 00708-2) [facility] GLUCOSE (AUTOMATED)2020-03-06 22:46:00 Test Item Value Reference Range Interpretation Comments POCT GLU (test code = 9576200199) 209 mg/dL 70-110 H Lab Interpretation (test code = Abnormal 09779-1) [facility] GLUCOSE (AUTOMATED)2020-03-06 16:23:00 Test Item Value Reference Range Interpretation Comments POCT GLU (test code = 3147090251) 254 mg/dL 70-110 H Lab Interpretation (test code = Abnormal 81645-0) [facility] GLUCOSE (AUTOMATED)2020-03-06 12:51:00 Test Item Value Reference Range Interpretation Comments POCT GLU (test code = 5797907107) 126 mg/dL 70-110 H Lab Interpretation (test code = Abnormal 20856-4) [facility] HospitalTROPONIN [id number] 10:16:00 Test Item Value Reference Range Interpretation Comments TROPONIN I (test 0.056 ng/mL See_Comment H [Automated code = 1160680528) message] The system which generated this result [...] ? Lab Interpretation Abnormal (test code = 04904-7) [facility] (NA, K, CL, CO2, GLUCOSE, BUN, CREATININE, CA)2020-03-06 10:13:00 Test Item Value Reference Range Interpretation Comments NA (test code = 136 mmol/L 135-145 6963723096) K (test code = 4.1 mmol/L 3.5-5 2903965876) CL (test code = 95 mmol/L 98-108 L 6590548626) CO2 TOTAL (test code = 30 mmol/L 23-31 5530804486) AGAP (test code = 2-16 7731838033) BUN (test code = 35 mg/dL 7-23 H 5658495676) GLUCOSE (test code = 174 mg/dL 70-110 H 2562217202) CREATININE (test code = 1.67 mg/dL 0.6-1.25 H 0127065255) CALCIUM (test code = 9.7 mg/dL 8.6-10.6 3922314336) eGFR Calculation mL/min/1.73m2 (Non-) (test code = 8005040693) eGFR Calculation mL/min/1.73m2 () (test code = 8826031859) ALYSSA (test code = ALYSSA) Association of [...] tests). Lab Interpretation Abnormal (test code = 57569-8) [facility] WITH [id number] 09:16:00 Test Item Value Reference Range Interpretation Comments WBC (test code = See_Comment [Automated 8170-2) message] The sy stem which generated this result transmitted reference range : 4.20 - 10.70 10*3/?L. The reference range was not used to interpret this result as normal/abnormal . RBC (test code = See_Comment L [Automated 229-8) message] The sy stem which generated this [...] RDW-SD (test code = 45.6 fL 38.5-51.6 01381-1) RDW-CV (test code = 14.3 % 12.1-15.4 788-0) PLT (test code = See_Comment [Automated 777-3) message] The sy stem which generated this result transmitted reference range : 150 - 328 10*3/ ?L. The reference r corey was not used to interpret this result as normal/abnormal . MPV (test code = 9.8 fL 9.8-13 41707-5) NRBC/100 WBC (test See_Comment [Automat ed code = 0765369807) message] The system which generated this result transmitted reference range : 0.0 - 10.0 /100 WBCs. The refer ence range was not u sed to interpret th is result as normal/abnormal . NRBC x10^3 (test code <0.01 See_Comment [Auto mated = 0186523905) message] The s ystem which generated this result transmitted reference range : 10*3/?L. The reference range was not used to interpret this result as normal/abnormal . GRAN MAT (NEUT) % 56.1 % (test code = 770-8) IMM GRAN % (test code 0.10 % = 5181573822) LYMPH % (test code = 29.7 % 736-9) MONO % (test code = 9.6 % 5905-5) EOS % (test code = 3.8 % 713-8) BASO % (test code = 0.7 % 706-2) GRAN MAT x10^3(ANC) 3.79 10*3/uL 1.99-6.95 (test code = 4517131723) IMM GRAN x10^3 (test <0.03 0-0.06 code = 6984921053) LYMPH x10^3 (test code 2.01 10*3/uL 1.09-3.23 = 731-0) MONO x10^3 (test code 0.65 10*3/uL 0.36-1.02 = 742-7) EOS x10^3 (test code = 0.26 10*3/uL 0.06-0.53 711-2) BASO x10^3 (test code 0.05 10*3/uL 0.01-0.09 = 704-7) Lab Interpretation Abnormal (test code = 96489-2) [facility] (AUTOMATED)2020-03-06 01:25:00 Test Item Value Reference Range Interpretation Comments POCT GLU (test code = 6886798210) 208 mg/dL 70-110 H Lab Interpretation (test code = Abnormal 33875-6) [facility] HospitalTROPONIN [id number] 00:08:00 Test Item Value Reference Range Interpretation Comments TROPONIN I (test 0.047 ng/mL See_Comment H [Automated code = 2641849847) message] The system which generated this result [...] ? Lab Interpretation Abnormal (test code = 54859-3) [facility] GLUCOSE (AUTOMATED)2020-03-05 21:19:00 Test Item Value Reference Range Interpretation Comments POCT GLU (test code = 3964158821) 234 mg/dL 70-110 H Lab Interpretation (test code = Abnormal 76525-7) [facility] GLUCOSE (AUTOMATED)2020-03-05 16:55:00 Test Item Value Reference Range Interpretation Comments POCT GLU (test code = 5938393290) 258 mg/dL 70-110 H Lab Interpretation (test code = Abnormal 57037-3) [facility] GLUCOSE (AUTOMATED)2020-03-05 12:59:00 Test Item Value Reference Range Interpretation Comments POCT GLU (test code = 1025398293) 194 mg/dL 70-110 H Lab Interpretation (test code = Abnormal 76161-8) [facility]TR[facility]IN [id number] 10:54:00 Test Item Value Reference Range Interpretation Comments TROPONIN I (test 0.071 ng/mL See_Comment H [Automated code = 5225221214) message] The system which generated this result [...] ? Lab Interpretation Abnormal (test code = 28293-3) [facility] (NA, K, CL, CO2, GLUCOSE, BUN, CREATININE, CA)2020-03-05 10:43:00 Test Item Value Reference Range Interpretation Comments NA (test code = 139 mmol/L 135-145 0980362810) K (test code = 4.1 mmol/L 3.5-5 9486711545) CL (test code = 101 mmol/L 98-108 9874096042) CO2 TOTAL (test code = 27 mmol/L 23-31 6822872700) AGAP (test code = 2-16 5279759236) BUN (test code = 25 mg/dL 7-23 H 4616893606) GLUCOSE (test code = 243 mg/dL 70-110 H 7639966186) CREATININE (test code = 1.22 mg/dL 0.6-1.25 8968160272) CALCIUM (test code = 9.8 mg/dL 8.6-10.6 2682905572) eGFR Calculation mL/min/1.73m2 (Non-) (test code = 7807094943) eGFR Calculation mL/min/1.73m2 () (test code = 0207845285) ALYSSA (test code = ALYSSA) Association of [...] tests). Lab Interpretation Abnormal (test code = 77393-3) [facility] WITH [id number] 10:23:00 Test Item Value Reference Range Interpretation Comments WBC (test code = See_Comment [Automated message] 6690-2) The system [employer] generated this result transmitted ref erence range: 4.20 - 1 0.70 10*3/?L. The re ference range was not u sed to interpret this result as normal/abnor mal. RBC (test code = See_Comment [Automated message] 309-8) The system [employer] generated this result transmitted ref erence range: [...] RDW-SD (test code 47.8 fL 38.5-51.6 = 96094-4) RDW-CV (test code 14.4 % 12.1-15.4 = 788-0) PLT (test code = See_Comment [Automated message] 467-3) The system [employer] generated this result transmitted ref erence range: 150 - 32 8 10*3/?L. The re ference range was not u sed to interpret this result as normal/abnor mal. MPV (test code = 9.8 fL 9.8-13 46380-2) NRBC/100 WBC (test See_Comment [Automat ed message] code = 1176607816) The syste m which generated this result transmitted ref erence range: 0.0 - 10 .0 /100 WBCs. The refer ence range was not u sed to interpret this result as normal/abnor mal. NRBC x10^3 (test <0.01 See_Comment [Automated message] code = 9494050334) The syste m which generated this result transmitted ref erence range: 10*3/?L. The reference range was not used to interpr et this result as normal/abnormal . GRAN MAT (NEUT) % 48.8 % (test code = 770-8) IMM GRAN % (test 0.20 % code = 8645725041) LYMPH % (test code 34.7 % = 736-9) MONO % (test code 10.8 % = 5905-5) EOS % (test code = 4.9 % 713-8) BASO % (test code 0.6 % = 706-2) GRAN MAT 2.49 10*3/uL 1.99-6.95 x10^3(ANC) (test code = 7556692678) IMM GRAN x10^3 <0.03 0-0.06 (test code = 3808879144) LYMPH x10^3 (test 1.77 10*3/uL 1.09-3.23 code = 731-0) MONO x10^3 (test 0.55 10*3/uL 0.36-1.02 code = 742-7) EOS x10^3 (test 0.25 10*3/uL 0.06-0.53 code = 711-2) BASO x10^3 (test 0.03 10*3/uL 0.01-0.09 code = 704-7) [facility]XR [facility]ST 1 [id number] 03:06:08 No acute cardiopulmonary process. Unchanged enlargement [...] reviewed this study and agree with the abovereport.[facility] CORONAVIRUS COVID-19 [id number] 00:34:00 Test Item Value Reference Range Interpretation Comments SARS-CoV-2 (test code = Not Detected Not Detected 43329-3) ALYSSA (test code = ALYSSA) ID NOW COVID-19 Assay is an isothermal nucleic acid amplification test intended for the qualitative detection of nucleic acid from SARS-CoV-2 viral RNA in nasopharyngeal (FACILITIES PROJECT MANAGER) specimens. It is used under Emergency Use [...] indicated. Lab Interpretation Normal (test code = 49866-4) [facility] HospitalTroponin [id number] 00:08:00 Test Item Value Reference Range Interpretation Comments TROPONIN I (test 0.056 ng/mL See_Comment H [Automated code = 0497940768) message] The system which generated this result [...] ? Lab Interpretation Abnormal (test code = 94323-2) [facility]N-[facility]MINAL [id number] 00:04:00 Test Item Value Reference Range Interpretation Comments NT-proBNP (test code 562 pg/mL See_Comment H [Autom ated = 5227076243) message] The system which generated this result transmitted reference range : <=450. The reference range was not used to interpret this result as normal/abnormal . ALYSSA (test code = ALYSSA) Biotin has been reported to cause a negative bias, interpret results relative to patient's use of biotin. Lab Interpretation Abnormal (test code = 71361-7) [facility] HospitalProthrombin Time (PT) / [id number] 23:57:00 Test Item Value Reference Range Interpretation [...] tions. Lab Interpretation (test Normal code = 16150-7) [facility] Metabolic Panel (NA, K, CL, CO2, GLUCOSE, BUN, CREATININE, CA)2020-03-04 23:56:00 Test Item Value Reference Range Interpretation Comments NA (test code = 139 mmol/L 135-145 8550154543) K (test code = 4.1 mmol/L 3.5-5 7691701774) CL (test code = 102 mmol/L 98-108 9831446884) CO2 TOTAL (test code = 29 mmol/L 23-31 9185665639) AGAP (test code = 2-16 4338197334) BUN (test code = 23 mg/dL 7-23 0913212265) GLUCOSE (test code = 193 mg/dL 70-110 H 5323160149) CREATININE (test code = 1.25 mg/dL 0.6-1.25 4099484175) CALCIUM (test code = 9.7 mg/dL 8.6-10.6 4910158896) eGFR Calculation mL/min/1.73m2 (Non-) (test code = 0866520208) eGFR Calculation mL/min/1.73m2 () (test code = 1157144917) ALYSSA (test code = ALYSSA) Association of [...] tests). Lab Interpretation Abnormal (test code = 66108-4) [facility] HospitalHepatic Function Panel (ALB, T.PRO, BILI T, BU/BC, ALT, AST, ALK PHOS)2020-03-04 23:56:00 Test Item Value Reference Range Interpretation Comments TOTAL BILI (test code = 0661592936) 1.1 mg/dL 0.1-1.1 BILI UNCON (test code = 8522805437) 1.1 mg/dL 0.1-1.1 BILI CONJ (test code = 5905387731) 0.0 mg/dL 0-0.3 T PROTEIN (test code = 7249497603) 7.1 g/dL 6.3-8.2 ALBUMIN (test code = 3052349714) 4.1 g/dL 3.5-5 ALK PHOS (test code = 5409917889) 61 U/L 34-122 ALTv (test code = 1742-6) 16 U/L 5-50 AST(SGOT) (test code = 9702797502) 23 U/L 13-40 Lab Interpretation (test code = Normal 57702-4) [facility] HospitalLipase [id number] 23:56:00 Test Item Value Reference Range Interpretation Comments LIPASE (test code = 6966577371) 149 U/L 0-220 Lab Interpretation (test code = Normal 36169-3) [facility] HospitalaPTT2020-04-19 23:56:00 Test Item Value Reference Range Interpretation Comments APTT Patient (test See_Comment [Automat ed code = 3173-2) message] The system which generated this result transmitted reference range : 23 - 38 Seconds . The reference range was not used to interpr et this result as normal/abnormal . ALYSSA (test code = ALYSSA) [facility] patient population mean normal value for aPTT is 30 seconds. Lab Interpretation Normal (test code = 06691-3) [facility] WITH [id number] 23:46:00 Test Item Value Reference Range Interpretation [...] RDW-SD (test code = 48.3 fL 38.5-51.6 51273-6) RDW-CV (test code = 14.7 % 12.1-15.4 788-0) PLT (test code = See_Comment [Automated 777-3) message] The sy stem which generated this result transmitted reference range : 150 - 328 10*3/ ?L. The reference r corey was not used to interpret this result as normal/abnormal . MPV (test code = 9.8 fL 9.8-13 30209-5) NRBC/100 WBC (test See_Comment [Automat ed code = 3160232276) message] The system which generated this result transmitted reference range : 0.0 - 10.0 /100 WBCs. The refer ence range was not u sed to interpret th is result as normal/abnormal . NRBC x10^3 (test code <0.01 See_Comment [Auto mated = 3382097114) message] The s ystem which generated this result transmitted reference range : 10*3/?L. The reference range was not used to interpret this result as normal/abnormal . GRAN MAT (NEUT) % 60.1 % (test code = 770-8) IMM GRAN % (test code 0.20 % = 2802665898) LYMPH % (test code = 26.4 % 736-9) MONO % (test code = 9.9 % 5905-5) EOS % (test code = 2.8 % 713-8) BASO % (test code = 0.6 % 706-2) GRAN MAT x10^3(ANC) 3.17 10*3/uL 1.99-6.95 (test code = 8142939760) IMM GRAN x10^3 (test <0.03 0-0.06 code = 7079719138) LYMPH x10^3 (test code 1.39 10*3/uL 1.09-3.23 = 731-0) MONO x10^3 (test code 0.52 10*3/uL 0.36-1.02 = 742-7) EOS x10^3 (test code = 0.15 10*3/uL 0.06-0.53 711-2) BASO x10^3 (test code 0.03 10*3/uL 0.01-0.09 = 704-7) Lab Interpretation Abnormal (test code = 81784-9) [facility] GLUCOSE (AUTOMATED)2020-03-02 16:04:00 Test Item Value Reference Range Interpretation Comments POCT GLU (test code = 5589757656) 214 mg/dL 70-110 H Lab Interpretation (test code = Abnormal 08971-1) [facility] GLUCOSE (AUTOMATED)2020-03-02 16:04:00 Test Item Value Reference Range Interpretation Comments POCT GLU (test code = 4836511955) 271 mg/dL 70-110 H Lab Interpretation (test code = Abnormal 65749-8) [facility] HospitalN-[facility]MINAL [id number] 09:43:00 Test Item Value Reference Range Interpretation Comments NT-proBNP (test code 1670 pg/mL See_Comment H [Autom ated = 5800307177) message] The system which generated this result transmitted reference range : <=450. The reference range was not used to interpret this result as normal/abnormal . ALYSSA (test code = ALYSSA) Biotin has been reported to cause a negative bias, interpret results relative to patient's use of biotin. Lab Interpretation Abnormal (test code = 63999-9) [facility] METABOLIC PANEL (NA, K, CL, CO2, GLUCOSE, BUN, CREATININE, CA)2020-03-02 09:33:00 Test Item Value Reference Range Interpretation Comments NA (test code = 143 mmol/L 135-145 2314478984) K (test code = 3.8 mmol/L 3.5-5 8266189106) CL (test code = 105 mmol/L 98-108 0423999057) CO2 TOTAL (test code = 28 mmol/L 23-31 2880213639) AGAP (test code = 2-16 2316743191) BUN (test code = 19 mg/dL 7-23 4769649476) GLUCOSE (test code = 152 mg/dL 70-110 H 3320569637) CREATININE (test code = 1.18 mg/dL 0.6-1.25 4367603141) CALCIUM (test code = 9.0 mg/dL 8.6-10.6 1893043920) eGFR Calculation mL/min/1.73m2 (Non-) (test code = 7032504047) eGFR Calculation mL/min/1.73m2 () (test code = 2299122149) ALYSSA (test code = ALYSSA) Association of [...] tests). Lab Interpretation Abnormal (test code = 83152-7) [facility] HospitalMAGNESIUM2020-04-17 09:33:00 Test Item Value Reference Range Interpretation Comments MAGNESIUM (test code = 8676217451) 1.8 mg/dL 1.7-2.4 Lab Interpretation (test code = Normal 95210-3) [facility]ATED)2020-03-01 20:42:00 Test Item Value Reference Range Interpretation Comments POCT GLU (test code = 5000205927) 231 mg/dL 70-110 H Lab Interpretation (test code = Abnormal 10817-2) [facility] HospitalVITAMIN B12, [id number] 11:51:00 Test Item Value Reference Range Interpretation Comments VIT B12 (test code = 325 pg/mL 240-930 4568586809) ALYSSA (test code = ALYSSA) Biotin has been reported to cause a positive bias, interpret results relative to patient's use of biotin. Lab Interpretation (test Normal code = 69218-3) [facility] HospitalFOLATE2020-04-16 11:49:00 Test Item Value Reference Range Interpretation Comments FOLATE SER (test code = >20.0 3-20 H Slig ht hemolysis 8220993158) Lab Interpretation (test Abnormal code = 74886-4) [facility] HospitalPROCALCITONIN2020-04-16 10:49:00 Test Item Value Reference Range Interpretation Comments Procalcitonin (test 3.05 ng/mL <0.07 H code = 5766059975) ALYSSA (test code = ALYSSA) INTERPRETATION OF [...] lung abscess/empyema. For further information please refer to:[email or web address] Lab Interpretation Abnormal (test code = 17917-7) [facility] HospitalTROPONIN [id number] 09:58:00 Test Item Value Reference Range Interpretation Comments TROPONIN I (test 0.093 ng/mL See_Comment H [Automated code = 3151775302) message] The system which generated this result [...] ? Lab Interpretation Abnormal (test code = 04187-0) [facility] HospitalN-TERMINAL [id number] 09:55:00 Test Item Value Reference Range Interpretation Comments NT-proBNP (test code 4450 pg/mL See_Comment H [Autom ated = 1827434155) message] The system which generated this result transmitted reference range : <=450. The reference range was not used to interpret this result as normal/abnormal . ALYSSA (test code = ALYSSA) Biotin has been reported to cause a negative bias, interpret results relative to patient's use of biotin. Lab Interpretation Abnormal (test code = 59785-4) [facility] (NA, K, CL, CO2, GLUCOSE, BUN, CREATININE, CA)2020-03-01 09:50:00 Test Item Value Reference Range Interpretation Comments NA (test code = 141 mmol/L 135-145 8926957725) K (test code = 3.5 mmol/L 3.5-5 7793270369) CL (test code = 105 mmol/L 98-108 3573483182) CO2 TOTAL (test code = 26 mmol/L 23-31 8965738347) AGAP (test code = 2-16 8810764719) BUN (test code = 13 mg/dL 7-23 1609423053) GLUCOSE (test code = 219 mg/dL 70-110 H 7312112387) CREATININE (test code = 1.01 mg/dL 0.6-1.25 8951975728) CALCIUM (test code = 8.7 mg/dL 8.6-10.6 2052829070) eGFR Calculation mL/min/1.73m2 (Non-) (test code = 0621630156) eGFR Calculation mL/min/1.73m2 () (test code = 1674096722) ALYSSA (test code = ALYSSA) Association of [...] tests). Lab Interpretation Abnormal (test code = 77073-4) [facility] HospitalMagnesium [id number] 09:50:00 Test Item Value Reference Range Interpretation Comments MAGNESIUM (test code = 6493189839) 1.9 mg/dL 1.7-2.4 Lab Interpretation (test code = Normal 08428-0) [facility] HospitalCB WITH [id number] 09:22:00 Test Item Value Reference Range Interpretation Comments WBC (test code = See_Comment [Automated 5490-2) message] The sy stem which generated this result transmitted reference range : 4.20 - 10.70 10*3/?L. The reference range was not used to interpret this result as normal/abnormal . RBC (test code = See_Comment L [Automated 439-8) message] The sy stem which generated this [...] RDW-SD (test code = 47.8 fL 38.5-51.6 62892-3) RDW-CV (test code = 14.8 % 12.1-15.4 788-0) PLT (test code = See_Comment L [Automated 777-3) message] The sy stem which generated this result transmitted reference range : 150 - 328 10*3/ ?L. The reference r corey was not used to interpret this result as normal/abnormal . MPV (test code = 9.9 fL 9.8-13 97378-6) NRBC/100 WBC (test See_Comment [Automat ed code = 4515570541) message] The system which generated this result transmitted reference range : 0.0 - 10.0 /100 WBCs. The refer ence range was not u sed to interpret th is result as normal/abnormal . NRBC x10^3 (test code <0.01 See_Comment [Auto mated = 1303736760) message] The s ystem which generated this result transmitted reference range : 10*3/?L. The reference range was not used to interpret this result as normal/abnormal . GRAN MAT (NEUT) % 66.0 % (test code = 770-8) IMM GRAN % (test code 0.30 % = 3926625796) LYMPH % (test code = 20.8 % 736-9) MONO % (test code = 9.5 % 5905-5) EOS % (test code = 2.8 % 713-8) BASO % (test code = 0.6 % 706-2) GRAN MAT x10^3(ANC) 4.44 10*3/uL 1.99-6.95 (test code = 6035589715) IMM GRAN x10^3 (test <0.03 0-0.06 code = 2067648698) LYMPH x10^3 (test code 1.40 10*3/uL 1.09-3.23 = 731-0) MONO x10^3 (test code 0.64 10*3/uL 0.36-1.02 = 742-7) EOS x10^3 (test code = 0.19 10*3/uL 0.06-0.53 711-2) BASO x10^3 (test code 0.04 10*3/uL 0.01-0.09 = 704-7) Lab Interpretation Abnormal (test code = 49582-5) [facility] HospitalGLYCOSYLATED HEMOGLOBIN (A1C)2020-03-01 06:49:00 Test Item Value [...] Indicated Lab Interpretation Abnormal (test code = 59612-4) [facility] HospitalURIC [id number] 06:25:00 Test Item Value Reference Range Interpretation Comments URIC ACID (test code = 5075200681) 2.3 mg/dL 3.6-8 L Lab Interpretation (test code = Abnormal 98773-3) [facility] HospitalSEDIMENTATION [id number] 05:25:00 Test Item Value Reference Range Interpretation Comments ESR (test code = See_Comment H [Automated message] 6028605951) The system [employer] h generated this result transmitted ref erence range: 0 - 10 m m/HR. The reference r corey was not used to interpret this result as normal/abnor mal. Lab Interpretation (test Abnormal code = 01713-4) [facility] HospitalN-TERMINAL [id number] 04:07:00 Test Item Value Reference Range Interpretation Comments NT-proBNP (test code 4080 pg/mL See_Comment H [Autom ated = 8074530304) message] The system which generated this result transmitted reference range : <=450. The reference range was not used to interpret this result as normal/abnormal . ALYSSA (test code = ALYSSA) Biotin has been reported to cause a negative bias, interpret results relative to patient's use of biotin. Lab Interpretation Abnormal (test code = 16292-9) [facility]PO[facility]UCOSE (AUTOMATED)2020-03-01 03:42:00 Test Item Value Reference Range Interpretation Comments POCT GLU (test code = 1129345132) 190 mg/dL 70-110 H Lab Interpretation (test code = Abnormal 29895-6) [facility] HospitalTROPONIN [id number] 03:30:00 Test Item Value Reference Range Interpretation Comments TROPONIN I (test 0.098 ng/mL See_Comment H [Automated code = 6168840547) message] The system which generated this result [...] ? Lab Interpretation Abnormal (test code = 46703-9) [facility] HospitalHEPATIC FUNCTION PANEL (13896) (ALB,T.PRO,BILI T,BU/BC,ALT,AST,ALK PHOS)2020-03-01 03:24:00 Test Item Value Reference Range Interpretation Comments TOTAL BILI (test code = 0779714397) 2.2 mg/dL 0.1-1.1 H BILI UNCON (test code = 4951341438) 2.0 mg/dL 0.1-1.1 H BILI CONJ (test code = 0794901061) 0.0 mg/dL 0-0.3 T PROTEIN (test code = 6730141011) 6.7 g/dL 6.3-8.2 ALBUMIN (test code = 8567683160) 4.0 g/dL 3.5-5 ALK PHOS (test code = 5449503229) 48 U/L 34-122 ALTv (test code = 1742-6) 18 U/L 5-50 AST(SGOT) (test code = 1918236784) 57 U/L 13-40 H Lab Interpretation (test code = Abnormal 96503-7) [facility] HospitalPhosphorus [id number] 03:17:00 Test Item Value Reference Range Interpretation Comments PHOSPHORUS (test code = 3.1 mg/dL 2.5-5 Slig ht hemolysis 3246240235) Lab Interpretation (test Normal code = 02308-8) [facility] HospitalPROTHROMBIN TIME / [id number] 03:08:00 Test Item Value Reference Range Interpretation Comments PROTIME PATIENT (test See_Comment [Auto mated message] code = 5964-2) The system [facility] generated this result transmitted ref erence range: 12.0 - 1 4.7 Seconds. The re ference range was not u sed to interpret this result as normal/abnor mal. INR (test code = 6301-6) Nor mal INR <1.1; Warfarin Therap eutic range 2.0 to 3. 0 or 2.5 to 3.5, dep ending upon the indica tions. Lab Interpretation (test Normal code = 42363-3) [facility] HospitalCREATINE [id number] 03:01:00 Test Item Value Reference Range Interpretation Comments CK (test code = 8174644366) 68 U/L 33-194 Lab Interpretation (test code = Normal 07192-2) [facility] HospitalURIC [id number] 02:41:00 Test Item Value Reference Range Interpretation Comments URIC ACID (test code = 8208416071) 2.3 mg/dL 3.6-8 L Lab Interpretation (test code = Abnormal 19748-2) [facility] HospitalTHYROID STIMULATING [id number] 02:26:00 Test Item Value Reference Range Interpretation Comments TSH (test code = See_Comment [Automated message] 3888843691) The system [facility] h generated this result transmitted ref erence range: 0.45 - 4 .70 mIU/L. The refe rence range was not u sed to interpret this result as normal/abnor mal. Lab Interpretation (test Normal code = 03062-6) [facility] HospitalN-TERMINAL [id number] 02:04:00 Test Item Value Reference Range Interpretation Comments NT-proBNP (test code 4390 pg/mL See_Comment H [Autom ated = 4662777966) message] The system which generated this result transmitted reference range : <=450. The reference range was not used to interpret this result as normal/abnormal . ALYSSA (test code = ALYSSA) Biotin has been reported to cause a negative bias, interpret results relative to patient's use of biotin. Lab Interpretation Abnormal (test code = 03036-9) [facility] HospitalMAGNESIUM2020-04-16 02:01:00 Test Item Value Reference Range Interpretation Comments MAGNESIUM (test code = 4010757802) 1.5 mg/dL 1.7-2.4 L Lab Interpretation (test code = Abnormal 01075-9) [facility] HospitalLIPASE2020-04-16 00:22:00 Test Item Value Reference Range Interpretation Comments LIPASE (test code = 9273318280) 68 U/L 0-220 Lab Interpretation (test code = Normal 26763-6) [facility] HospitalCORONAVIRUS COVID-19 [id number] 23:42:00 Test Item Value Reference Range Interpretation Comments SARS-CoV-2 (test code = Not Detected Not Detected 03083-4) ALYSSA (test code = ALYSSA) ID NOW COVID-19 Assay is an isothermal nucleic acid amplification test intended for the qualitative detection of nucleic acid from SARS-CoV-2 viral RNA in nasopharyngeal ([employer]GER) specimens. It is used under Emergency Use [...] indicated. Lab Interpretation Normal (test code = 16672-5) [facility] HospitalXR CHEST 1 VW [id number] 23:26:02 No acute intrathoracic abnormality, specifically no radiographic findingsto suggest COVID-19 pneumonia. Disclaimer: Generally, the findings on chest imaging in COVID-19 are notspecific, and overlap with other infections, including influenza, H1N1,SARS and MERS. According to the Centers for Disease Control (CDC) and recent statement ofthe [employer], viral testing remains the [...] stimulating device overlie the mid thoracic spine. [facility], Radiant ResultsInft User - 02/29/2020 [...] Disease Control (CDC) and recent statement ofthe [employer], viral testing remains the only specificmethod of diagnosis. Confirmation with the viral test is required, even ifradiologic findings are suggestive of COVID-[address]. Preliminary Report Dictated by Resident: Radu Boo MD., have reviewed this study and agree with theabovereport.[facility] HospitalWendy [id number] 22:59:00 Test Item Value Reference Range Interpretation Comments TROPONIN I (test 0.071 ng/mL See_Comment H [Automated code = 0104404044) message] The system which generated this result [...] ? Lab Interpretation Abnormal (test code = 87884-6) [facility] Met[facility] Panel (NA, K, CL, CO2, GLUCOSE, BUN, CREATININE, CA)2020-02-29 22:48:00 Test Item Value Reference Range Interpretation Comments NA (test code = 141 mmol/L 135-145 0289151561) K (test code = 3.2 mmol/L 3.5-5 L 7444609516) CL (test code = 104 mmol/L 98-108 6030679406) CO2 TOTAL (test code = 25 mmol/L 23-31 6378655014) AGAP (test code = 2-16 8774212925) BUN (test code = 12 mg/dL 7-23 7424225766) GLUCOSE (test code = 250 mg/dL 70-110 H 2075451156) CREATININE (test code = 1.02 mg/dL 0.6-1.25 8766576939) CALCIUM (test code = 8.9 mg/dL 8.6-10.6 7589388276) eGFR Calculation mL/min/1.73m2 (Non-) (test code = 0360745319) eGFR Calculation mL/min/1.73m2 () (test code = 2763218949) ALYSSA (test code = ALYSSA) Association of [...] tests). Lab Interpretation Abnormal (test code = 31405-9) [facility] WITH [id number] 22:41:00 Test Item Value Reference Range Interpretation Comments WBC (test code = See_Comment [Automated 3270-2) message] The sy stem which generated this result transmitted reference range : 4.20 - 10.70 10*3/?L. The reference range was not used to interpret this result as normal/abnormal . RBC (test code = See_Comment L [Automated 189-8) message] The sy stem which generated this [...] RDW-SD (test code = 46.6 fL 38.5-51.6 69088-2) RDW-CV (test code = 14.6 % 12.1-15.4 788-0) PLT (test code = See_Comment [Automated 777-3) message] The sy stem which generated this result transmitted reference range : 150 - 328 10*3/ ?L. The reference r corey was not used to interpret this result as normal/abnormal . MPV (test code = 9.7 fL 9.8-13 L 69142-2) NRBC/100 WBC (test See_Comment [Automat ed code = 8234230418) message] The system which generated this result transmitted reference range : 0.0 - 10.0 /100 WBCs. The refer ence range was not u sed to interpret th is result as normal/abnormal . NRBC x10^3 (test code <0.01 See_Comment [Auto mated = 3054318848) message] The s ystem which generated this result transmitted reference range : 10*3/?L. The reference range was not used to interpret this result as normal/abnormal . GRAN MAT (NEUT) % 68.6 % (test code = 770-8) IMM GRAN % (test code 0.30 % = 4088006692) LYMPH % (test code = 18.6 % 736-9) MONO % (test code = 10.1 % 5905-5) EOS % (test code = 1.8 % 713-8) BASO % (test code = 0.6 % 706-2) GRAN MAT x10^3(ANC) 4.29 10*3/uL 1.99-6.95 (test code = 5911633783) IMM GRAN x10^3 (test <0.03 0-0.06 code = 0708298650) LYMPH x10^3 (test code 1.16 10*3/uL 1.09-3.23 = 731-0) MONO x10^3 (test code 0.63 10*3/uL 0.36-1.02 = 742-7) EOS x10^3 (test code = 0.11 10*3/uL 0.06-0.53 711-2) BASO x10^3 (test code 0.04 10*3/uL 0.01-0.09 = 704-7) Lab Interpretation Abnormal (test code = 47553-4) [facility] HospitalLamnic Acid Whole [id number] 22:38:00 Test Item Value Reference Range Interpretation Comments LACTIC ACID (test code = 1.88 mmol/L 0.3-2.6 4761901204) [facility] HospitalPONM GLUCOSE (AUTOMATED)2020-01-17 18:18:00 Test Item Value Reference Range Interpretation Comments POCT GLU (test code = 7282151360) 290 mg/dL 70-110 H Lab Interpretation (test code = Abnormal 04795-1) [facility] HospitalTROPONIN [id number] 18:01:00 Test Item Value Reference Range Interpretation Comments TROPONIN I (test 0.065 ng/mL See_Comment H [Automated code = 4327970953) message] The system which generated this result [...] ? Lab Interpretation Abnormal (test code = 58762-5) [facility] HospitalaPTT2020-03-03 17:10:00 Test Item Value Reference Range Interpretation Comments APTT Patient (test See_Comment H [Automat ed code = 3173-2) message] The system which generated this result transmitted reference range : 23 - 38 Seconds . The reference range was not used to interpr et this result as normal/abnormal . ALYSSA (test code = ALYSSA) [facility] patient population mean normal value for aPTT is 30 seconds. Lab Interpretation Abnormal (test code = 78578-1) [facility]POCT [facility]UCOSE (AUTOMATED)2020-01-17 11:59:00 Test Item Value Reference Range Interpretation Comments POCT GLU (test code = 7636197360) 185 mg/dL 70-110 H Lab Interpretation (test code = Abnormal 27314-0) [facility] HospitalTROPONIN [id number] 11:23:00 Test Item Value Reference Range Interpretation Comments TROPONIN I (test 0.073 ng/mL See_Comment H [Automated code = 3896828524) message] The system which generated this result [...] ? Lab Interpretation Abnormal (test code = 73395-3) [facility] Met[facility] Panel (NA, K, CL, CO2, GLUCOSE, BUN, CREATININE, CA)2020-01-17 11:16:00 Test Item Value Reference Range Interpretation Comments NA (test code = 136 mmol/L 135-145 8177513130) K (test code = 3.3 mmol/L 3.5-5 L 1197779614) CL (test code = 101 mmol/L 98-108 4218792683) CO2 TOTAL (test code = 26 mmol/L 23-31 0064811634) AGAP (test code = 2-16 2224214905) BUN (test code = 19 mg/dL 7-23 1449274377) GLUCOSE (test code = 227 mg/dL 70-110 H 6243340681) CREATININE (test code = 1.33 mg/dL 0.6-1.25 H 4370220032) CALCIUM (test code = 9.1 mg/dL 8.6-10.6 2951746808) eGFR Calculation mL/min/1.73m2 (Non-) (test code = 5149008129) eGFR Calculation mL/min/1.73m2 () (test code = 2053045529) ALYSSA (test code = ALYSSA) Association of [...] tests). Lab Interpretation Abnormal (test code = 95155-8) [facility] HospitalaPTT2020-03-03 11:00:00 Test Item Value Reference Range Interpretation Comments APTT Patient (test See_Comment H [Automat ed code = 3173-2) message] The system which generated this result transmitted reference range : 23 - 38 Seconds . The reference range was not used to interpr et this result as normal/abnormal . ALYSSA (test code = ALYSSA) The [facility] patient population mean normal value for aPTT is 30 seconds. Lab Interpretation Abnormal (test code = 03956-5) [facility] HospitalCB WITH [id number] 10:43:00 Test Item Value Reference Range Interpretation Comments WBC (test code = See_Comment [Automated message] 6690-2) The system [employer] generated this result transmitted ref erence range: 4.20 - 1 0.70 10*3/?L. The re ference range was not u sed to interpret this result as normal/abnor mal. RBC (test code = See_Comment [Automated message] 789-8) The system [employer] generated this result transmitted ref erence range: [...] RDW-SD (test code 41.5 fL 38.5-51.6 = 07516-4) RDW-CV (test code 12.8 % 12.1-15.4 = 788-0) PLT (test code = See_Comment [Automated message] 777-3) The system whic h generated this result transmitted ref erence range: 150 - 32 8 10*3/?L. The re ference range was not u sed to interpret this result as normal/abnor mal. MPV (test code = 10.7 fL 9.8-13 01541-6) NRBC/100 WBC (test See_Comment [Automat ed message] code = 7213242925) The syste m which generated this result transmitted ref erence range: 0.0 - 10 .0 /100 WBCs. The refer ence range was not u sed to interpret this result as normal/abnor mal. NRBC x10^3 (test <0.01 See_Comment [Automated message] code = 0510653770) The syste m which generated this result transmitted ref erence range: 10*3/?L. The reference range was not used to interpr et this result as normal/abnormal . GRAN MAT (NEUT) % 56.1 % (test code = 770-8) IMM GRAN % (test 0.30 % code = 8204651906) LYMPH % (test code 29.5 % = 736-9) MONO % (test code 9.9 % = 5905-5) EOS % (test code = 3.3 % 713-8) BASO % (test code 0.9 % = 706-2) GRAN MAT 3.73 10*3/uL 1.99-6.95 x10^3(ANC) (test code = 5902639257) IMM GRAN x10^3 <0.03 0-0.06 (test code = 9129590944) LYMPH x10^3 (test 1.96 10*3/uL 1.09-3.23 code = 731-0) MONO x10^3 (test 0.66 10*3/uL 0.36-1.02 code = 742-7) EOS x10^3 (test 0.22 10*3/uL 0.06-0.53 code = 711-2) BASO x10^3 (test 0.06 10*3/uL 0.01-0.09 code = 704-7) [facility] GLUCOSE (AUTOMATED)2020-01-17 01:49:00 Test Item Value Reference Range Interpretation Comments POCT GLU (test code = 5438368804) 305 mg/dL 70-110 H Lab Interpretation (test code = Abnormal 57377-6) [facility] GLUCOSE (AUTOMATED)2020-01-17 00:01:00 Test Item Value Reference Range Interpretation Comments POCT GLU (test code = 4578423076) 271 mg/dL 70-110 H Lab Interpretation (test code = Abnormal 00109-8) [facility]aPTT2020-03-02 22:23:00 Test Item Value Reference Range Interpretation Comments APTT Patient (test See_Comment H [Automat ed code = 3173-2) message] The system which generated this result transmitted reference range : 23 - 38 Seconds . The reference range was not used to interpr et this result as normal/abnormal . ALYSSA (test code = ALYSSA) [facility] patient population mean normal value for aPTT is 30 seconds. Lab Interpretation Abnormal (test code = 81947-5) [facility] HospitalTROPONIN [id number] 21:22:00 Test Item Value Reference Range Interpretation Comments TROPONIN I (test 0.061 ng/mL See_Comment H [Automated code = 0217937101) message] The system which generated this result [...] ? Lab Interpretation Abnormal (test code = 24810-4) [facility]PO[facility]UCOSE (AUTOMATED)2020-01-16 17:37:00 Test Item Value Reference Range Interpretation Comments POCT GLU (test code = 5419555450) 271 mg/dL 70-110 H Lab Interpretation (test code = Abnormal 05493-9) [facility] HospitalaPTT2020-03-02 12:47:00 Test Item Value Reference Range Interpretation Comments APTT Patient (test See_Comment HH [Automat ed code = 3173-2) message] The system which generated this result transmitted reference range : 23 - 38 Seconds . The reference range was not used to interpr et this result as normal/abnormal . ALYSSA (test code = ALYSSA) The [facility] patient population mean normal value for aPTT is 30 seconds. Lab Interpretation Abnormal (test code = 34888-7) [facility] HospitalTROPONIN [id number] 12:35:00 Test Item Value Reference Range Interpretation Comments TROPONIN I (test 0.074 ng/mL See_Comment H [Automated code = 4517500348) message] The system which generated this result [...] ? Lab Interpretation Abnormal (test code = 28312-1) [facility] HospitalLIPID PANEL (23337)(TOTAL CHOLESTEROL, TRIGLYCERIDES, HDL)2020-01-16 12:23:00 Test Item Value Reference Range Interpretation Comments CHOL (test code = 95 mg/dL 120-200 L 1377024012) HDL (test code = 44 mg/dL >40 5506969571) HDLC RATIO (test code = See_Comment [Au tomated message] 9092322935) The system [employer] generated this result transmitted ref erence range: <=5.0. T he reference range was not used to int erpret this result as normal/abnormal . TRIG (test code = 89 mg/dL 30-170 5990786479) LDL CHOL (test code = 33 mg/dL See_Comment [Auto mated message] 18683-8) The system [employer] generated this result transmitted ref erence range: <=160. T he reference range was not used to int erpret this result as normal/abnormal . VLDL (test code = 18 mg/dL 5-60 0622113060) Lab Interpretation (test Abnormal code = 43489-5) [facility] HospitalGlycosylated Hemoglobin (A1C)2020-01-16 09:03:00 Test Item Value [...] Indicated Lab Interpretation Abnormal (test code = 45635-3) [facility] HospitalCritical [id number] 05:48:18Charanjit Heck MD ? ? 01/15/2020 11:48 [...] review of old charts and examination of patientUnBaptist Saint [facility]'s HospitalProthrombin Time (PT) / [id number] 05:28:00 Test Item Value Reference Range Interpretation [...] tions. Lab Interpretation (test Normal code = 37509-8) [facility] 05:27:00 Test Item Value Reference Range Interpretation Comments APTT Patient (test See_Comment [Automat ed code = 3173-2) message] The system which generated this result transmitted reference range : 23 - 38 Seconds . The reference range was not used to interpr et this result as normal/abnormal . ALYSSA (test code = ALYSSA) The [facility] patient population mean normal value for aPTT is 30 seconds. Lab Interpretation Normal (test code = 90499-3) [facility]rop[facility] [id number] 05:11:00 Test Item Value Reference Range Interpretation Comments TROPONIN I (test 0.075 ng/mL See_Comment H [Automated code = 2831829803) message] The system which generated this result [...] ? Lab Interpretation Abnormal (test code = 40271-6) [facility]AL [id number] 05:08:00 Test Item Value Reference Range Interpretation Comments NT-proBNP (test code 896 pg/mL See_Comment H [Autom ated = 8202781263) message] The system which generated this result transmitted reference range : <=450. The reference range was not used to interpret this result as normal/abnormal . ALYSSA (test code = ALYSSA) Biotin has been reported to cause a negative bias, interpret results relative to patient's use of biotin. Lab Interpretation Abnormal (test code = 29669-9) [facility] (NA, K, CL, CO2, GLUCOSE, BUN, CREATININE, CA)2020-01-16 04:59:00 Test Item Value Reference Range Interpretation Comments NA (test code = 136 mmol/L 135-145 7103698298) K (test code = 4.0 mmol/L 3.5-5 5798313704) CL (test code = 101 mmol/L 98-108 2335951708) CO2 TOTAL (test code = 27 mmol/L 23-31 0176232557) AGAP (test code = 2-16 3608795386) BUN (test code = 17 mg/dL 7-23 2957227290) GLUCOSE (test code = 445 mg/dL 70-110 H 4534448315) CREATININE (test code = 1.29 mg/dL 0.6-1.25 H 6512990753) CALCIUM (test code = 8.8 mg/dL 8.6-10.6 1209838227) eGFR Calculation mL/min/1.73m2 (Non-) (test code = 0415862074) eGFR Calculation mL/min/1.73m2 () (test code = 5203692931) ALYSSA (test code = ALYSSA) Association of [...] tests). Lab Interpretation Abnormal (test code = 37612-4) [facility] (ALB, T.PRO, BILI T, BU/BC, ALT, AST, ALK PHOS)2020-01-16 04:59:00 Test Item Value Reference Range Interpretation Comments TOTAL BILI (test code = 3118165256) 1.3 mg/dL 0.1-1.1 H BILI UNCON (test code = 1345019790) 1.1 mg/dL 0.1-1.1 BILI CONJ (test code = 7731805889) 0.0 mg/dL 0-0.3 T PROTEIN (test code = 3915077599) 6.3 g/dL 6.3-8.2 ALBUMIN (test code = 7012152892) 3.9 g/dL 3.5-5 ALK PHOS (test code = 6012332424) 67 U/L 34-122 ALTv (test code = 1742-6) 15 U/L 5-50 AST(SGOT) (test code = 0727884571) 23 U/L 13-40 Lab Interpretation (test code = Abnormal 15884-4) [facility] 1 [id number] 04:54:13Impression: Moderate cardiomegaly without acute pulmonary process. RL: 460 AFC: [id number] Indication: Chest pain Comparison: None available Findings: Single AP view of the chest. The cardiopericardial silhouette ismoderately enlarged. The lungs are clear bilaterally. The visualized bonythorax is intact. A thoracic neurostimulator device is in place. [facility], Radiant Results Inft User - 01/15/2020 10:55 PM CSTIndication: Chest painComparison: None availableFindings: Single AP view of the chest. The cardiopericardial silhouette ismoderately enlarged. The lungs are clear bilaterally. The visualized bonythorax is intact. A thoracic neurostimulator device is in place.IMPRESSIONImpression:Moderate cardiomegaly without acute pulmonary process.RL: 460AFC: [id number] signed by Esperanza Rosado MD, PhD at 01/15/2020 10:54 PMUnPerkins [facility] Health Services WITH [id number] 04:51:00 Test Item Value Reference Range Interpretation [...] RDW-SD (test code = 40.7 fL 38.5-51.6 26496-3) RDW-CV (test code = 12.8 % 12.1-15.4 788-0) PLT (test code = See_Comment L [Automated 777-3) message] The sy stem which generated this result transmitted reference range : 150 - 328 10*3/ ?L. The reference r corey was not used to interpret this result as normal/abnormal . MPV (test code = 10.6 fL 9.8-13 69611-0) IPF % (test code = 2.8 % 1.2-10.7 Platelet count [id number]) measured by fluorescence method. NRBC/100 WBC (test See_Comment [Automat ed code = 8988286583) message] The system which generated this result transmitted reference range : 0.0 - 10.0 /100 WBCs. The refer ence range was not u sed to interpret th is result as normal/abnormal . NRBC x10^3 (test code <0.01 See_Comment [Auto mated = 4464255646) message] The s ystem which generated this result transmitted reference range : 10*3/?L. The reference range was not used to interpret this result as normal/abnormal . GRAN MAT (NEUT) % 56.0 % (test code = 770-8) IMM GRAN % (test code 0.20 % = 3112296883) LYMPH % (test code = 30.5 % 736-9) MONO % (test code = 9.6 % 5905-5) EOS % (test code = 2.8 % 713-8) BASO % (test code = 0.9 % 706-2) GRAN MAT x10^3(ANC) 2.98 10*3/uL 1.99-6.95 (test code = 0470137329) IMM GRAN x10^3 (test <0.03 0-0.06 code = 4013536542) LYMPH x10^3 (test code 1.62 10*3/uL 1.09-3.23 = 731-0) MONO x10^3 (test code 0.51 10*3/uL 0.36-1.02 = 742-7) EOS x10^3 (test code = 0.15 10*3/uL 0.06-0.53 711-2) BASO x10^3 (test code 0.05 10*3/uL 0.01-0.09 = 704-7) Lab Interpretation Abnormal (test code = 14647-5) [facility]"
[2022-01-21] MEDS ORDERED: HYDROCODONE/APAP 7.5/325 MG TAB ONE (01:39)
[2022-01-21 01:47] LABS: Absolute Lymphocytes (CBC) 1.6 K/uL (0.7-4.9); Hematocrit 36.7 % (39.6-49.0); Lymphocytes % 21.6 % (15.3-44.8); MPV 8.4 fL (7.6-11.3); RBC Red Blood Cell Count 3.94 M/uL (4.33-5.43)
[2022-01-21 02:03] LABS: Urine Blood Negative (Negative); Urine Glucose 3+ (Negative); Urine Protein Negative (Negative); Urine Specific Gravity >=1.030 (1.005-1.030)
--- NOTE | 2022-01-21 04:19 | EDPHYS ---
Physician Documentation [facility] Name: Demetrius Sarmiento Age: 81 yrs Sex: Male : 1940 Arrival Date: 01/21/2022 Time: 00:41 Bed 2 Private MD: ED Physician Esteban Martinez HPI: 01/21 04:12 This 81 yrs old Male presents to ER via EMS with complaints of Low back pain radiating kdr down the left leg. 04:12 The patient presents with pain that is chronic, with no known mechanism of injury, The kdr patient has acute on chronic low back pain that is radiating to the left leg anteriorly. The symptoms are located in the low back. Onset: The symptoms/episode began/occurred at an unknown time. States he was unable to get to sleep tonight because of the pain. Pain radiates down the left leg to just above the knee. This is not new but has been part of his very occasional exacerbations previously. Associated signs and symptoms: The patient has no apparent associated signs or symptoms. The problem was sustained without known cause, from unknown cause. Modifying factors: The patient symptoms are alleviated by nothing, the patient symptoms are aggravated by any movement. Severity of symptoms: At their worst the symptoms were mild, moderate, just prior to arrival, in the emergency department the symptoms are unchanged. The patient has experienced similar episodes in the past, chronically, This is acute on chronic pain with no change in character or distribution. The patient has not recently seen a physician. - Immunization history:: Flu vaccine is up to date. - Social history:: Smoking status: Patient denies any tobacco usage or history of. Patient/guardian denies using alcohol, street drugs. ROS: 04:12 Constitutional: Negative for fever, chills, and weight loss, Eyes: Negative for injury, kdr pain, redness, and discharge, Neck: Negative for injury, pain, and swelling, Cardiovascular: Negative for chest pain, palpitations, and edema, Respiratory: Negative for shortness of breath, cough, wheezing, and pleuritic chest pain, Abdomen/GI: Negative for abdominal pain, nausea, vomiting, diarrhea, and constipation, : Negative for injury, bleeding, discharge, and swelling, MS/Extremity: Negative for injury and deformity, Skin: Negative for injury, rash, and discoloration, Neuro: Negative for headache, weakness, numbness, tingling, and seizure activity. Psych: Negative for depression, anxiety, suicide ideation, homicidal ideation, and hallucinations, Allergy/Immunology: Negative for hives, rash, and allergies, Endocrine: Negative for neck swelling, polydipsia, polyuria, polyphagia, and marked weight changes, Hematologic/Lymphatic: Negative for swollen nodes, abnormal bleeding, and unusual bruising. 04:12 : Negative for urinary symptoms, Patient denies any loss of control of bowel or bladder. Exam: 04:12 Constitutional: This is a well developed, well nourished patient who is awake, alert, kdr and in no acute distress. Head/Face: Normocephalic, atraumatic. Eyes: Pupils equal round and reactive to light, extra-ocular motions intact. Lids and lashes normal. Conjunctiva and sclera are non-icteric and not injected. Cornea within normal limits. Periorbital areas with no swelling, redness, or edema. Neck: Trachea midline, no thyromegaly or masses palpated, and no cervical lymphadenopathy. Supple, full range of motion without nuchal rigidity, or vertebral point tenderness. No Meningismus. Chest/axilla: Normal chest wall appearance and motion. Nontender with no deformity. No lesions are appreciated. Respiratory: Lungs have equal breath sounds bilaterally, clear to auscultation and percussion. No rales, rhonchi or wheezes noted. No increased work of breathing, no retractions or nasal flaring. Abdomen/GI: Soft, non-tender, with normal bowel sounds. No distension or tympany. No guarding or rebound. No evidence of tenderness throughout. Skin: Warm, dry with normal turgor. Normal color with no rashes, no lesions, and no evidence of cellulitis. MS/ Extremity: Pulses equal, no cyanosis. Neurovascular intact. Full, normal range of motion. Neuro: Awake and alert, GCS 15, oriented to person, place, time, and situation. Cranial nerves II-XII grossly intact. Motor strength 5/5 in all extremities. Sensory grossly intact. Cerebellar exam normal. Normal gait. Psych: Awake, alert, with orientation to person, place and time. Behavior, mood, and affect are within normal limits. 04:12 Back: pain, that is mild, that is moderate, of the low back area. Vital Signs: 00:41 BP 138 / 80; Pulse 56; Resp 20; Temp 98.8(O); Pulse Ox 95% on R/A; Weight 79.38 kg; sf1 Height 5 ft. 7 in. (170.18 cm); 01:30 BP 124 / 78; Pulse 107; Resp 20 S; Pulse Ox 99% on R/A; al4 02:30 BP 122 / 80; Pulse 91; Resp 20; Pulse Ox 99% ; al4 04:30 BP 141 / 79; Pulse 92; Resp 16 S; Pulse Ox 96% on R/A; al4 00:41 Body Mass Index 27.41 (79.38 kg, 170.18 cm) sf1 MDM: 04:12 Data reviewed: vital signs, nurses notes, lab test result(s), radiologic studies. kdr Counseling: I had a detailed discussion with the patient and/or guardian regarding: the historical points, exam findings, and any diagnostic results supporting the discharge/admit diagnosis, lab results, radiology results, the need for outpatient follow up. 04:18 Patient medically screened. kdr 01/21 01:24 Order name: CBC with Diff; Complete Time: 02:47 kdr 01/21 01:24 Order name: Chem 7; Complete Time: 02:47 kdr 01/21 01:24 Order name: CT Abd/Pelvis - IV Contrast Only kdr 01/21 01:24 Order name: Urine Dipstick-Ancillary (obtain specimen); Complete Time: 02:02 kdr 01/21 02:03 Order name: Urine Dipstick-Ancillary; Complete Time: 02:47 EDMS Administered Medications: 01:43 Drug: Wolf (HYDROcodone-acetaminophen) (7.5 mg-325 mg) 1 tabs Route: PO; al4 02:45 Follow up: Response: No adverse reaction; RASS: Alert and Calm (0) al4 Disposition Summary: 01/21/22 04:18 Discharge Ordered Location: Home kdr Problem: an acute exacerbation kdr Symptoms: have improved kdr Condition: Stable kdr Diagnosis - Low back pain - Acute exacerbation on chronic kdr Followup: kdr - With: Private Physician - When: 2 - 3 days - Reason: If symptoms return, Further diagnostic work-up, Recheck today's complaints, Continuance of care, Re-evaluation by your physician Discharge Instructions: - Discharge Summary Sheet kdr - Chronic Back Pain, [id number]-rq-[id number] kdr Forms: - Medication Reconciliation Form kdr - Thank You Letter kdr - Prescription Opioid Use kdr Prescriptions: - Tramadol 50 mg Oral Tablet - take 1 tablet by ORAL route every 8 hours as needed; 12 tablet; Refills: 0, kdr Product Selection Permitted Signatures: Dispatcher [employer] Esteban Sainz MD MD kdr Richy Prasad Samantha, RN RN sf1
--- NOTE | 2022-01-21 04:19 | ER ---
[facility]urse's Notes [facility] Name[facility] Demetrius S[facility] Age: 81 yrs Sex: Male : 1940 Arrival Date: 01/21/2022 Time: 00:41 Bed 2 Private MD: Diagnosis: Low back pain-Acute exacerbation on chronic Presentation: 01/21 00:41 Chief complaint: EMS states: patient called out for lower left sided back pain radiates sf1 to the hip. Coronavirus screen: Vaccine status: Patient reports receiving the 2nd dose of the covid vaccine. Client denies travel out of the [place] in the last 14 days. Ebola Screen: Patient negative for fever greater than or equal to 101.5 degrees Fahrenheit, and additional compatible Ebola Virus Disease symptoms Patient denies exposure to infectious person. Patient denies travel to an Ebola-affected area in the 21 days before illness onset. Initial Sepsis Screen: Does the patient meet any 2 criteria? No. Patient's initial sepsis screen is negative. Does the patient have a suspected source of infection? No. Patient's initial sepsis screen is negative. Risk Assessment: Do you want to hurt yourself or someone else? Patient reports no desire to harm self or others. Onset of symptoms was January 21, 2022. 00:41 Method Of Arrival: EMS sf1 00:41 Acuity: LANCE 4 sf1 Triage Assessment: 00:41 General: Appears in no apparent distress. Behavior is calm, cooperative, appropriate sf1 for age. - Immunization history:: Flu vaccine is up to date. - Social history:: Smoking status: Patient denies any tobacco usage or history of. Patient/guardian denies using alcohol, street drugs. Screenin:45 Abuse screen: Denies threats or abuse. Nutritional screening: No deficits noted. sf1 Tuberculosis screening: No symptoms or risk factors identified. Fall Risk None identified. Assessment: 00:45 General:. Pain: Complains of pain in left hip. sf1 01:38 General: Appears in no apparent distress. comfortable, Behavior is calm, cooperative. al4 Pain: Complains of pain in left hip. Neuro: Level of Consciousness is awake, alert, obeys commands, Oriented to person, place, time, situation. Cardiovascular: Capillary refill < 3 seconds Patient's skin is warm and dry. Respiratory: Airway is patent Respiratory effort is unlabored, Respiratory pattern is regular. Musculoskeletal: Circulation, motion, and sensation intact. 02:00 Reassessment: Patient appears in no apparent distress at this time. Patient is alert, al4 oriented x 3, equal unlabored respirations, skin warm/dry/pink. 03:00 Reassessment: Patient appears in no apparent distress at this time. al4 04:00 Reassessment: Patient appears in no apparent distress at this time. Patient is alert, al4 oriented x 3, equal unlabored respirations, skin warm/dry/pink. 04:42 Reassessment: supervisor logging Kerry gave permission to call a taxi for patient. al4 05:00 Reassessment: Patient appears in no apparent distress at this time. Patient is alert, al4 oriented x 3, equal unlabored respirations, skin warm/dry/pink. 05:13 Reassessment: patient states that he is able to ambulate into house without assistance. al4 patient demonstrated ability to ambulate. Vital Signs: 00:41 BP 138 / 80; Pulse 56; Resp 20; Temp 98.8(O); Pulse Ox 95% on R/A; Weight 79.38 kg; sf1 Height 5 ft. 7 in. (170.18 cm); 01:30 BP 124 / 78; Pulse 107; Resp 20 S; Pulse Ox 99% on R/A; al4 02:30 BP 122 / 80; Pulse 91; Resp 20; Pulse Ox 99% ; al4 04:30 BP 141 / 79; Pulse 92; Resp 16 S; Pulse Ox 96% on R/A; al4 00:41 Body Mass Index 27.41 (79.38 kg, 170.18 cm) sf1 ED Course: 00:41 Patient arrived in ED. al4 00:41 Arm band placed on right wrist. sf1 00:43 Triage completed. sf1 00:48 Esteban Martinez MD is Attending Physician. kdr 01:23 Bed in low position. Pulse ox on. NIBP on. Warm blanket given. al4 01:36 Chem 7 Sent. al4 01:36 CBC with Diff Sent. al4 01:36 Inserted saline lock: 20 gauge in right forearm, using aseptic technique. Blood al4 collected. 01:51 Richy Prasad is Primary Nurse. al4 03:10 CT Abd/Pelvis - IV Contrast Only In Process Unspecified. EDMS 04:50 No provider procedures requiring assistance completed. IV discontinued, intact, al4 bleeding controlled, No redness/swelling at site. Pressure dressing applied. Administered Medications: 01:43 Drug: [place] (HYDROcodone-acetaminophen) (7.5 mg-325 mg) 1 tabs Route: PO; al4 02:45 Follow up: Response: No adverse reaction; RASS: Alert and Calm (0) al4 Output: 04:59 Urine: 2ml (Voided); Total: 2ml. al4 Outcome: 04:18 Discharge ordered by . kdr 04:50 Discharged to home al4 04:50 Condition: stable 04:50 Discharge instructions given to patient, Instructed on discharge instructions, follow up and referral plans. medication usage, Demonstrated understanding of instructions, follow-up care, medications, Prescriptions given X 1. 05:15 Patient left the ED. al4 Signatures: Dispatcher [employer] EDMS Esteban Martinez MD MD kdr Ledbetter, Alexis al4 Steph Holman RN RN sf1 Corrections: (The following items were deleted from the chart) 04:57 04:30 BP 141 / 79; Pulse 92bpm; Resp 20bpm; Spontaneous; Pulse Ox 96% RA; al4 al4
[2022-01-21 05:21] VITALS: TEMP 98.8
[2022-01-21 05:24] VITALS: BP 141/79; O2SAT 96
--- NOTE | 2022-01-21 11:14 | RAD REPORT ---
EXAM DESCRIPTION: CT ABDOMEN PELVIS WITH IV CONTRAST Exam date: January 21, 2022 COMPARISON: CT abdomen pelvis November 30, 2021 CT abdomen pelvis April 24, 2021. Indication: Diffuse abdominal pain TECHNIQUE: Multiple helical axial images were obtained through the abdomen and pelvis using intraven ous contrast and angiographic protocol. Arterial and venous phase images were obtained. MIP reformatt ed images were obtained. All CT scans at this facility use dose modulation, iterative reconstruction, and/or weight-based dosi ng when appropriate to reduce radiation dose to as low as reasonably achievable. FINDINGS: Lung bases: Mild dependent atelectasis noted. Liver: There is a 2 cm rounded structure in the right hepatic lobe segment 5 appearing hyperdense on venous phase imaging and mildly hypodense on arterial phase images. Gallbladder/biliary: Appears unremarkable Pancreas: Several small calcifications are present which can be seen with changes related to chronic pancreatitis. No evidence of ductal enlargement. Spleen: Appears unremarkable. No splenomegaly. Adrenals: Unremarkable. Kidneys and ureters: Right kidney is not visualized. No evidence of hydronephrosis. Normal enhancem ent. There is a 1.2 cm cyst in the midpole of the left kidney. Bladder: Unremarkable. Pelvic organs: Penile pump device is present. Bowel: Colonic diverticula are present. No evidence of bowel obstruction. No bowel wall thickening. Appendix appears unremarkable. 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 No evidence of aortic dissection or aneurysm. Peritoneum: No free air. No significant free fluid. Lymph nodes: Unremarkable. Soft tissues: Neurostimulator device in the right gluteal subcutaneous tissues noted with leads enter ing the lower thoracic spinal canal. Bones: Nonspecific lytic lesion involving the left iliac bone near the sacroiliac joint again demonst rated. Degenerative changes of the lumbar spine are present. There are changes of posterior fusion fr om L3 through L5. There is mild anterior subluxation of L4 relative to L5. IMPRESSION: 1. No evidence for an acute process within the abdomen or pelvis. 2. Colonic diverticulosis. 3. Right hepatic lobe lesion appears to enhance on venous phase imaging and is incompletely charact erized. This lesion appears to have been present on the CT dated April 24, 2021. Nonemergent follow-up ultrasound may be helpful for further characterization. Electronically signed by: Jorgito Fox MD 01/21/2022 3:59 AM PATIENT REPRESENTATIVE Due to temporary technical issues with the PACS/Fluency reporting system, reports are being signed by the in house radiologists without review as a courtesy to insure prompt reporting. The interpreting radiologist is fully responsible for the content of the report.
== END 2022-01-21 05:15 | disposition home or self-care (01) ==
LOC: ER 00:37
DX: M54.50 Low back pain, unspecified (principal)
CPT/HCPCS: 85025; 80048; 36415; 81003; 74177; Q9967; 99284

== ENCOUNTER 2022-01-22 01:24 | Observation (INO) | payer OTHER ==
--- OUTSIDE RECORDS SUMMARY | 2022-01-22 01:36 | XMS REPORT | Continuity of Care Document ---
:1940 Author Organization [facility] t Address [address] [place] [address] Care Team Providers Name Role Phone Andres Briscoe DO Primary Care Physician Denny Attending Clinician Unavailable Lester Attending Clinician Unavailable ATTAR Attending Clinician Unavailable LAUREN Attending Clinician Unavailable MD LAUREN O. Attending Clinician Unavailable Doctor Unassigned, Name Attending Clinician Unavailable Candace STONER, A Attending Clinician Unavailable ALYSSA Attending Clinician Unavailable Stacy Drake MD Attending Clinician Alyssa WOTOEN Attending Clinician Pcp, Does Not Have A [...] Policy Number Effective Date Expiration Date [facility] [id number] 2019 DUAL COMPLETE HMO 00:00:00 MEDICAID OF [place] [id number] 2018 00:00:00 Problems Condition Condition Condition Status Onset Resolution Last Treating Co mments Source Name Details Category Date Date Treatment Clinician Date Unstable Unstable Disease Active Unive rs angina angina 5-07 ity of 00:00: [place] [facility] ALBA (acute ALBA (acute Disease Active 2020- U nivers kidney kidney 4-21 ity of injury) injury) 00:00: [place] [facility] Chest pain Chest pain Disease Active 2019- U nivers 4-21 ity of 00:00: [place] [facility] Chest pain Chest pain Disease Active 2020- U 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 4-15 it y of 00:00: [place] [facility] 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 00:00: [place] and and 00 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 2018-11 U nivers lobe lobe 1-06 ity of pneumonia pneumonia 00:00: [facility] 00 Medical Branch PNA PNA Disease Active 2018-11 Univers (pneumonia (pneumonia 0-25 it y of ) ) 00:00: [place] [facility] Acute on Acute on Disease Active 2018-11 Unive rs chronic chronic 0-25 ity of combined combined 00:00: [place] systolic systolic 00 Medica l and and Branch 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 Dyspnea Dyspnea Disease Active 2018-11 Univers 0-23 ity of 00:00: [place] [facility] CHF CHF Disease Active 2019 Univers exacerbati exacerbati 2-17 it y of on on 00:00: [place] [facility] Essential Essential Disease Active Uni vers hypertensi hypertensi 2-17 it y of on on 00:00: [place] [facility] 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 00:00: [place] without without 00 Medical complicati complicati Br anch on, on, without without long-term long-term current current use of use of insulin insulin CHF CHF Disease Active Univers exacerbati exacerbati 2-17 it y of on on 00:00: [place] [facility] Acute on Acute on Disease [...] 00:00: [place] involving involving 00 Medi birdie [place] 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 00:00: [place] disease disease 00 Medical Branch Coronary Coronary Disease Active Unive rs artery artery 1- ity of disease disease 00:00: [place] involving involving 00 Medi birdie [place] 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 [...] [facility] Allergie - Clear s 00:00: [place] 00 [facility] NO KNOWN Drug Active Univers ALLERGIE Class ity of S [facility] Social History Social Habit Start Date Stop Date Quantity Comments Source Exposure to [facility] University of SARS-CoV-2 (event) [facility] History of tobacco User of Univer sity of use smokeless [facility] tobacco [place] Alcohol intake 2021-10-31 2021-10-31 Current University of 00:00:00 00:00:00 non-drinker of [facility] alcohol Branch (finding) Cigarettes smoked 2018-12-11 2018-12-11 Univers ity of current (pack per 00:00:00 00:00:00 [facility] ) - Reported Branch Cigarette 2018-12-11 2018-12-11 University of pack-years 00:00:00 00:00:00 [facility] Tobacco use and 2018-12-11 2018-12-11 Former user Universi ty of exposure 00:00:00 00:00:00 [facility] Sex Ass[birth year] At [birth year] Universit y of 00:00:00 00:00:00 [facility] Smoking Status Start Date Stop Date Source Former smoker 2018-12-11 00:00:00 2018-12-11 00:00:00 [facility] Medications Ordered Filled Start Stop Current Ordering Indication Dosage Frequency Signature Comments Components Source Medication Medication Date Date Medication? Clinician (SIG) Name Name aspirin 81 2020-11- Yes [id number] 81mg Take 1 Univers mg chewable -12-04 tablet by it y of tablet 00:00: 05:59 mouth [place] 00 :00 daily for Medical 30 days. Branch clopidogreL 2020-11- Yes [id number] 75mg Take 1 Univers 75 mg -12-04 tablet by ity of tablet 00:00: 05:59 mouth [place] 00 :00 daily for Medical 30 days. Branch furosemide 2020-11- Yes [id number] 20mg Take 1 Univers 20 mg -12-04 tablet by ity of tablet 00:00: 05:59 mouth [place] 00 :00 daily for Medical 30 days. Branch aspirin 81 2020-11- Yes [id number] 81mg Take 1 Univers mg chewable 2-12-04 tablet by it y of tablet 00:00: 05:59 mouth [place] 00 :00 daily for Medical 30 days. Branch clopidogreL 2020-11- Yes [id number] 75mg Take 1 Univers 75 mg 2-12-04 tablet by ity of tablet 00:00: 05:59 mouth [place] 00 :00 daily for Medical 30 days. Branch furosemide 2020-11- Yes [id number] 20mg Take 1 Univers 20 mg 01-04 tablet by ity of tablet 00:00: 05:59 mouth [place] 00 :00 daily for Medical 30 days. Branch aspirin 81 2020-11- Yes [id number] 81mg Take 1 Univers mg chewable 01-04 tablet by it y of tablet 00:00: 05:59 mouth [place] 00 :00 daily for Medical 30 days. Branch clopidogreL 2020-11- Yes [id number] 75mg Take 1 Univers 75 mg 01-04 tablet by ity of tablet 00:00: 05:59 mouth [place] 00 :00 daily for Medical 30 days. Branch furosemide 2020-11- Yes [id number] 20mg Take 1 Univers 20 mg 01-04 [...] by mouth ity of 14:14: 00:00 daily. [place] 53 :00 Medical Branch isosorbide 2020-11 Yes 60mg 60 mg, Unive rs mononitrate 2-18 Oral, BID, it y of (IMDUR) 24 14:00: First dose [place] hr tablet 00 (after Medical 60 mg last Branch modificati on) on 11/02/21 at 0800, Until Discontinu ed, Routine QUEtiapine 2020-11 Yes [id number] 25mg Take 1 Univers 25 mg 2-18 tablet by ity of tablet 00:00: mouth at [place] [address] bedtime as Medical needed Branch (agitation /insomnia) . QUEtiapine 2020-11 Yes [id number] 25mg Take 1 Univers 25 mg 2-18 tablet by ity of tablet 00:00: mouth at [place] 00 bedtime as Medical needed Branch (agitation /insomnia) . QUEtiapine 2020-11 Yes [id number] 25mg Take 1 Univers 25 mg 2-18 tablet by ity of tablet 00:00: mouth at [place] 00 bedtime as Medical needed Branch (agitation /insomnia) . isosorbide 2020-11- Yes [id number] 60mg Take 1 Univers mononitrate 2-18 -18 tablet by it y of 60 mg 24 hr 00:00: 05:59 mouth 2 [place] tablet 00 :00 (two) Medical times Branch daily for 30 days. metoprolol 2020-11- Yes [id number] 37.5mg Take 1.5 Univers succinate 2-18 -18 tablets by ity of XL 25 mg 24 00:00: 05:59 mouth 2 [place] hr tablet 00 :00 (two) Medical times Branch daily for 30 days. isosorbide 2020-11- Yes [id number] 60mg Take 1 Univers mononitrate 2-18 01-18 tablet by it y of 60 mg 24 hr 00:00: 05:59 mouth 2 [place] tablet 00 :00 (two) Medical times Branch daily for 30 days. metoprolol 2020-11- Yes [id number] 37.5mg Take 1.5 Univers succinate 2-18 -18 tablets by ity of XL 25 mg 24 00:00: 05:59 mouth 2 [place] hr tablet 00 :00 (two) Medical times Branch daily for 30 days. isosorbide 2020-11- Yes [id number] 60mg Take 1 Univers mononitrate 01-03 tablet by it y of 60 mg 24 hr 00:00: 05:59 mouth 2 [place] tablet 00 :00 (two) Medical times Branch daily for 30 days. metoprolol 2020-11- Yes [id number] 37.5mg Take 1.5 Univers succinate 01-03 tablets [...] dose [place] mg [address] [facility] Medical 10/31/21 Branch at 2100, Until Discontinu ed, Routine clopidogreL 2020-11 Yes 75mg 75 mg, Univ ers (PLAVIX) 2-16 Oral, ity of tablet 75 23:30: DAILY, [place] mg 00 First dose Medical on [facility] Branch 10/31/21 at 1730, Until Discontinu ed, Routine sulfur 2020-11- No [id number] 5mL 5 mL, Unive rs hexafluorid 01-01 Intravenou i ty of e microsphr 17:00: 17:00 s, ONCE, 1 [place] (LUMASON) 00 :00 dose, On Medica l injection [address] [facility] Branch mL 10/31/21 at 1100, Routine
modular set crew member approving Restricted medication : HOA MEGGAN isosorbide 2020-11- No 120mg 120 mg, Un mel mononitrate 01-01 Oral, ity of (IMDUR) 24 15:00: 14:16 DAILY, [place] hr tablet 00 :38 First dose Medi birdie [address] [facility] Branch 10/31/21 at 0900, Until Discontinu ed, Routine Sliding 2020-11 Yes Subcutaneo [facility] ers Scale - , AC+HS, ity of Insulin-Reg 13:30: First dose [place] ular + Fsbg [address] [facility] Medica l Testing 10/31/21 Branch at 0730, Until Discontinu ed, Routine enoxaparin 2020-11- No 1mg/kg 80 mg Uni vers (LOVENOX) 01-01 (rounded ity o f injection 09:00: 14:17 from 78 mg [place] 80 mg 00 :35 = 1 mg/kg Medical ?78 kg), Branch Subcutaneo , Q24H, First dose on [facility] 10/31/21 at 0300, Until Discontinu ed, Routine aspirin 2020-11- No 325mg 325 mg, Unive rs tablet 325 01-01 Oral, ity of mg 08:45: 08:15 ONCE, 1 [place] 00 :00 dose, On Medical [facility] Branch 10/31/21 at 0245, Routine glucagon [...] IV Push, ity of mg 07:36: 05:31 [facility] [place] 09 :07 Starting Medical on Madhavi Branch [...] 2-16 IV Push, ity of (PF)) 05:32: [place], [place] injection 4 10 Starting Medi birdie mg on Thu Branch 10/30/21 at 2332, Until Discontinu ed, Routine, Nausea and Vomiting (N/V) acetaminoph 2020-11 Yes 650mg 650 mg, Un mel en 2-16 Oral, ity of (TYLENOL) 05:31: Q6[place], [place] tablet 650 56 Starting Medic al mg on Thu Branch 10/30/21 at 2331, Until Discontinu ed, Routine, Pain (scale 1-3) acetaminoph 2020-11 Yes [id number] 1{tbl} 1 tablet, Univers en-codeine 2-16 Oral, ity of (TYLENOL 05:29: Q6HPRN, [place] #3) 300-30 29 Starting Medic al mg [...] ity of mg 23:15: 22:23 ONCE, 1 [place] 00 :00 dose, Madhavi Medical 04/25/21 at Branch 1815, STAT acetaminoph 2020- No 1{tbl} 1 tablet, Univers en-codeine 6-10 06-10 Oral, ity of (TYLENOL 19:00: 17:52 ONCE, 1 [place] #3) 300-30 00 :00 dose, Madhavi Medi birdie mg tablet 1 04/25/21 at Br anch tablet 1400, ADAMA cyclobenzap No 10mg 10 mg, Uni vers rine 6-10 06-10 Oral, ONCE ity of (FLEXERIL) 19:00: 17:52 NOW, 1 [place] tablet 10 00 :00 dose, Madhavi Medic al mg 04/25/21 at Branch 1400, ADAMA cyclobenzap Yes [id number] 5mg Take 1 Univers rine 5 mg 6-10 tablet by ity o f tablet 00:00: mouth 3 [place] [address] (three) Medical times [place] daily. cyclobenzap Yes [id number] 5mg Take 1 Univers rine 5 mg 6-10 tablet by ity o f tablet 00:00: mouth 3 [place] 00 (three) Medical times [place] daily. cyclobenzap Yes [id number] 5mg Take 1 Univers rine 5 mg [...] sided low back pain cyclobenzap 2020-0 Yes [id number] 5mg Take 1 Univers rine 5 mg [...] sided low back pain cyclobenzap 2020- Yes [id number] 5mg Take 1 Univers rine 5 mg [...] [place] mg 00 First dose Medical on [facility] 03/24/20 at 0900, Until Discontinu ed, Routine MULTIVITAMI 2020-0 2020- No Take by U nivers N ORAL 5- 05-08 mouth. ity of 03:38: 00:00 [place] 54 :00 Medical Branch MULTIVITAMI 2020-0 Yes Take by Un mel N ORAL 5-09 mouth. ity of 02:01: [place] 35 [facility] atorvastati 2020-0 Yes 40mg 40 mg, [...] Discontinu ed, Routine aspirin 81 2020-0 Yes [id number] 81mg Take 1 U nivers mg chewable 5-09 tablet by ity of tablet 00:00: mouth [place] 00 daily with Medical breakfast. Branch furosemide 2020-0 Yes [id number] 20mg Take 1 U nivers 20 mg 5-09 tablet by ity of tablet 00:00: mouth [place] 00 daily. Medical Branch aspirin 81 2020-0 Yes [id number] 81mg Take 1 U nivers mg chewable 5-09 tablet by ity of tablet 00:00: mouth [place] 00 daily with Medical breakfast. Branch furosemide 2020-0 Yes [id number] 20mg Take 1 U nivers 20 mg 5-09 tablet by ity of tablet 00:00: mouth [place] 00 daily. [facility] Branch aspirin 81 2020-0 Yes [id number] 81mg Take 1 U nivers mg chewable 5-09 tablet by ity of tablet 00:00: mouth [place] 00 daily with Medical breakfast. Branch furosemide 2020-0 Yes [id number] 20mg Take 1 U nivers 20 mg 5-09 tablet by ity of tablet 00:00: mouth [place] 00 daily. Medical Branch aspirin 81 2020-0 Yes [id number] 81mg Take 1 U nivers mg chewable 5-09 tablet by ity of tablet 00:00: mouth [place] 00 daily with Medical breakfast. Branch furosemide 2020-0 Yes [id number] 20mg Take 1 U nivers 20 mg 5-09 tablet by ity of tablet 00:00: mouth [place] 00 daily. Medical Branch aspirin 81 2020-0 Yes [id number] 81mg Take 1 U nivers mg chewable 5-09 tablet by ity of tablet 00:00: mouth [place] 00 daily with Medical breakfast. Branch furosemide 2020-0 Yes [id number] 20mg Take 1 U nivers 20 mg 5-09 tablet by ity of tablet 00:00: mouth [place] 00 daily. Medical Branch aspirin 81 2020-0 Yes [id number] 81mg Take 1 U nivers mg chewable 5-09 tablet by ity of tablet 00:00: mouth [place] 00 daily with Medical breakfast. Branch furosemide 2020-0 Yes [id number] 20mg Take 1 U nivers 20 mg 5-09 tablet by ity of tablet 00:00: mouth [place] 00 daily. Medical Branch aspirin 81 2020-0 Yes [id number] 81mg Take 1 U nivers mg chewable 5-09 tablet by ity of tablet 00:00: mouth [place] 00 daily with Medical breakfast. Branch furosemide 2020-0 Yes [id number] 20mg Take 1 U nivers 20 mg 5-09 tablet by ity of tablet 00:00: mouth [place] 00 daily. Medical Branch aspirin 81 2020-0 Yes [id number] 81mg Take 1 U nivers mg chewable 5-09 tablet by ity of tablet 00:00: mouth [place] 00 daily with Medical breakfast. Branch furosemide 2020-0 Yes [id number] 20mg Take 1 U nivers 20 mg 5-09 tablet by ity of tablet 00:00: mouth [place] 00 daily. Medical Branch aspirin 81 2020-0 Yes [id number] 81mg Take 1 U nivers mg chewable 5-09 tablet by ity of tablet 00:00: mouth [place] 00 daily with Medical breakfast. Branch furosemide 2020-0 Yes [id number] 20mg Take 1 U nivers 20 mg 5-09 tablet by ity of tablet 00:00: mouth [place] 00 daily. Medical Branch aspirin 81 2019-2020- No [id number] 81mg Take 1 Univers mg chewable 03-24 tablet by it y of tablet 00:00: 00:00 mouth [place] 00 :00 daily with Medical breakfast. Branch furosemide 2019-2020- No [id number] 20mg Take 1 Univers 20 mg 03-24 tablet by ity of tablet 00:00: 00:00 mouth [place] 00 :00 daily. Medical Branch isosorbide 2019-2019- No [id number] 90mg Take 3 Univers mononitrate 03-24-08 tablets by i ty of 30 mg 24 hr 00:00: 00:00 mouth [place] tablet 00 :00 daily. Medical Branch isosorbide 2019-2019- No [id number] 90mg Take 3 Univers mononitrate 03-24-08 tablets by i ty of 30 mg 24 hr 00:00: 00:00 mouth [place] tablet 00 :00 daily. Medical Branch maalox/lido 2020-0 2020- No 5mL 5 mL, [facility] 2 03-23 05-08 Oral, ity of %viscous 20:45: 20:56 ONCE, 1 [place] 1:1 00 :00 dose, Fri Medical suspension 03/23/20 at [facility] (COMPOUNDED 1545, ) Routine maalox/lido 2020-0 2020- No 5mL 5 mL, [facility] 2 03-23 05-08 Oral, ity of %viscous 20:45: 20:56 ONCE, [place] 1: 00 :00 dose, Fri Medical suspension 03/23/20 at [facility] (COMPOUNDED 1545, ) Routine acetaminoph 2020-0 [...] ity of mg 07:59: Q4HPRN, [place] [address] Starting Medical [facility] 03/23/20 Branch at 0259, Until Discontinu ed, Routine, Chest pain morpHINE 2020-0 Yes 2mg 2 mg, Slow Uni vers injection 2 -08 IV Push, ity of mg 07:59: Q4HPRN, [place] [address] Starting Medical [facility] 03/23/20 Branch at 0259, Until Discontinu [...] Fri Medi birdie (4 %) 03/23/20 at [place] infusion 2 0245, g Routine KCL 2020-0 [...] of 10 mL with 04:01: 00:00 intravenou [place] sodium 03 :00 sly once Medical chloride now. Branch 2.5 mEq/mL SolP 17.125 mEq acetaminoph 2020-0 Yes 650mg 650 mg, Un mel en 03-23 Oral, ity of (TYLENOL) 02:51: Q6HPRN, [place] tablet 650 29 Starting Medic al mg [facility] 03/22/20 Branch at 2151, Until Discontinu ed, Routine, Pain (scale 1-3) acetaminoph 2020-0 Yes 650mg 650 mg, Un mel en 03-23 Oral, ity of (TYLENOL) 02:51: Q6HPRN, [place] tablet 650 29 Starting Medic al mg [facility] 03/22/20 Branch at 2151, Until Discontinu ed, Routine, Pain (scale 1-3) nitroglycer 2020-0 Yes .4mg 0.4 mg, Uni vers in 03-23 Sublingual ity of (NITROSTAT) 02:38: , Q5MIN [place] as sublingual 00 PRN, 3 Medical tablet 0.4 doses, Branch mg Starting [facility] 03/22/20 at 2138, Until Discontinu ed, ADAMA, Chest pain nitroglycer 2020-0 Yes .4mg 0.4 mg, Uni vers in 03-23 Sublingual ity of (NITROSTAT) 02:38: , Q5MIN [place] sublingual 00 PRN, 3 Medical tablet 0.4 doses, Branch mg Starting [facility] 03/22/20 at 2138, Until Discontinu ed, [...] 1 [place] as mg 00 :00 dose, [facility] 03/22/20 at Branch 2145, ADAMA isosorbide 2020-0 Yes [id number] 90mg Take 1.5 Univers mononitrate 5-08 tablets by it y of 60 mg 24 hr 00:00: mouth [place] tablet 00 daily. [facility] isosorbide 2020-0 Yes [id number] 90mg Take 1.5 Univers mononitrate 5-08 tablets by it y of 60 mg 24 hr 00:00: mouth [place] tablet 00 daily. [facility] isosorbide 2020-0 Yes [id number] 90mg Take 1.5 Univers mononitrate 5-08 tablets by it y of 60 mg 24 hr 00:00: mouth [place] tablet 00 daily. [facility] isosorbide 2020-0 Yes [id number] 90mg Take 1.5 Univers mononitrate 5-08 tablets by it y of 60 mg 24 hr 00:00: mouth [place] tablet 00 daily. [facility] isosorbide 2020-0 Yes [id number] 90mg Take 1.5 Univers mononitrate 5-08 tablets by it y of 60 mg 24 hr 00:00: mouth [place] tablet 00 daily. [facility] isosorbide 2020-0 Yes [id number] 90mg Take 1.5 Univers mononitrate 5-08 tablets by it y of 60 mg 24 hr 00:00: mouth [place] tablet 00 daily. [facility] isosorbide 2020-0 Yes [id number] 90mg Take 1.5 Univers mononitrate 5-08 tablets by it y of 60 mg 24 hr 00:00: mouth [place] tablet 00 daily. [facility] isosorbide 2020-0 Yes [id number] 90mg Take 1.5 Univers mononitrate 5-08 tablets by it y of 60 mg 24 hr 00:00: mouth [place] tablet 00 daily. [facility] isosorbide 2020-0 Yes [id number] 90mg Take 1.5 Univers mononitrate 5-08 tablets by it y of 60 mg 24 hr 00:00: mouth [place] tablet 00 daily. [facility] isosorbide 2020-0 2020- No [id number] 90mg Take 1.5 Univers mononitrate 5-08 12-18 tablets by i ty of 60 mg 24 hr 00:00: 00:00 mouth [place] tablet 00 :00 daily. Medical Branch acetaminoph 2020-0 2020- No [id number] 975mg Take 3 Univers en 325 mg 5-08 05-19 tablets by ity of tablet 00:00: 04:59 mouth [place] 00 :00 every 8 Medical (eight) Branch hours for 10 days. acetaminoph 2020-0 2020- No [id number] 975mg Take 3 Univers en 325 mg 5-08 05-19 tablets by ity of tablet 00:00: 04:59 mouth [place] 00 :00 every 8 Medical (eight) Branch hours for 10 days. acetaminoph 2020-0 2020- No [id number] 975mg Take 3 Univers en 325 mg 5-08 05-19 tablets by ity of tablet 00:00: 04:59 mouth [place] 00 :00 every 8 Medical (eight) Branch hours for 10 days. acetaminoph 2020-0 2020- No [id number] 975mg Take 3 Univers en 325 mg 5-08 05-19 tablets by ity of tablet 00:00: 04:59 mouth [place] 00 :00 every 8 Medical (eight) Branch hours for 10 days. acetaminoph 2020-0 2020- No [id number] 975mg Take 3 Univers en 325 mg 5-08 05-19 tablets by ity of tablet 00:00: 04:59 mouth [place] 00 :00 every 8 Medical (eight) Branch hours for 10 days. lidocaine 5 2019- No [id number] 1{patch Apply 1 Univers % (700 5-08 05-09 } Patch to ity of mg/patch) 00:00: 04:59 area(s) [place] patch 00 :00 once now Medical for 1 Branch dose. lidocaine 5 2020- No [id number] 1{patch Apply 1 Univers % (700 5-08 05-09 } Patch to ity of mg/patch) 00:00: 04:59 area(s) [place] patch 00 :00 once now Medical for 1 Branch dose. lidocaine 5 2020- No [id number] 1{patch Apply 1 Univers % (700 5-08 05-08 } Patch to ity of mg/patch) 00:00: 00:00 area(s) [place] patch 00 :00 once now Medical for 1 Branch dose. lidocaine 5 2019- No [id number] 1{patch Apply 1 Univers % (700 5-08 05-08 } Patch to ity of mg/patch) 00:00: 00:00 area(s) [place] patch 00 :00 once now Medical for 1 Branch dose. glipiZIDE Yes 5mg 5 mg, Univers (GLUCOTROL) 4-23 Oral, ity of tablet 5 mg 14:00: DAILY, [place] 00 First dose Medical on [facility] Branch 03/08/20 at 0900, Until Discontinu ed, Routine spironolact 2020- No [id number] 12.5mg Take 0.5 Univers one 25 mg 4-23 05-24 tablets by ity of tablet 00:00: 04:59 mouth [place] 00 :00 daily for Medical 30 days. Branch spironolact 2019- No [id number] 12.5mg Take 0.5 Univers one 25 mg 4-23 05-24 tablets by ity of tablet 00:00: 04:59 mouth [place] 00 :00 daily for Medical 30 days. Branch spironolact 2019- No [id number] 12.5mg Take 0.5 Univers one 25 mg 4-23 05-24 tablets by ity of tablet 00:00: 04:59 mouth [place] 00 :00 daily for Medical 30 days. Branch spironolact 2020- No [id number] 12.5mg Take 0.5 Univers one 25 mg 4-23 05-07 tablets by ity of tablet 00:00: 00:00 mouth [place] 00 :00 daily for Medical 30 days. Branch spironolact 2020- No [id number] 12.5mg Take 0.5 Univers one 25 mg [...] N ORAL - mouth. ity of 23:46: [place] 10 Medical Branch thiamine 2020-0 Yes 100mg [...] Discontinu ed, Routine, Insomnia Magnesium 2019-0 Yes [id number] 400mg Take 400 Univers Oxide 420 4-22 mg by ity of mg Tab 00:00: mouth [place] 00 daily. Medical Branch Insulin 2019-0 Yes [id number] 10U inject 10 Univers Glargine 4-22 Units ity of 100 unit/mL 00:00: under the [place] (3 mL) 00 skin at Medical injection bedtime. Branch temazepam 2019-0 Yes [id number] 15mg Take 1 Un mel 15 mg 4-22 capsule by ity of capsule 00:00: mouth at [place] 00 bedtime as Medical needed for Branch Insomnia. furosemide 2020-0 Yes [id number] 40mg Take 1 Univers 40 mg 4-22 tablet by ity of tablet 00:00: mouth [place] 00 every Medical morning Branch and evening. Magnesium 2020-0 Yes [id number] 400mg Take 400 Univers Oxide 420 4-22 mg by ity of mg Tab 00:00: mouth [place] 00 daily. Medical Branch potassium 2020-0 Yes [id number] 20meq Take 20 Univers chloride 20 4-22 mEq by ity of mEq packet 00:00: mouth [place] 00 daily. Medical Take with Branch lasix in the morning isosorbide 2020-0 Yes [id number] 15mg Take 0.5 Univers mononitrate 4-22 tablets by it y of 30 mg 24 hr 00:00: mouth [place] tablet 00 daily. Medical Hold if Branch systolic blood pressure less than 120 Insulin 2020-0 Yes [id number] 10U inject 10 Univers Glargine 4-22 Units ity of 100 unit/mL 00:00: under the [place] (3 mL) 00 skin at Medical injection bedtime. Branch temazepam 2020-0 Yes [id number] 15mg Take 1 Un mel 15 mg 4-22 capsule by ity of capsule 00:00: mouth at [place] 00 bedtime as Medical needed for Branch Insomnia. furosemide 2020-0 Yes [id number] 40mg Take 1 Univers 40 mg 4-22 tablet by ity of tablet 00:00: mouth [place] 00 every Medical morning Branch and evening. Magnesium 2020-0 Yes [id number] 400mg Take 400 Univers Oxide 420 4-22 mg by ity of mg Tab 00:00: mouth [place] 00 daily. Medical Branch potassium 2020-0 Yes [id number] 20meq Take 20 Univers chloride 20 4-22 mEq by ity of mEq packet 00:00: mouth [place] 00 daily. Medical Take with Branch lasix in the morning isosorbide 2020-0 Yes [id number] 15mg Take 0.5 Univers mononitrate 4-22 tablets by it y of 30 mg 24 hr 00:00: mouth [place] tablet 00 daily. Medical Hold if Branch systolic blood pressure less than 120 Insulin 2020-0 Yes [id number] 10U inject 10 Univers Glargine 4-22 Units ity of 100 unit/mL 00:00: under the [place] (3 mL) 00 skin at Medical injection bedtime. Branch temazepam 2020-0 Yes [id number] 15mg Take 1 Un mel 15 mg 4-22 capsule by ity of capsule 00:00: mouth at [place] 00 bedtime as Medical needed for Branch Insomnia. furosemide 2020-0 Yes [id number] 40mg Take 1 [facility] 40 mg 4-22 tablet by ity of tablet 00:00: mouth [place] 00 every Medical morning Branch and evening. Magnesium 2020-0 Yes [id number] 400mg Take 400 [facility] Oxide 420 4-22 mg by ity of mg Tab 00:00: mouth [place] 00 daily. Medical Branch potassium 2020-0 Yes [id number] 20meq Take 20 [facility] chloride 20 4-22 mEq by ity of mEq packet 00:00: mouth [place] 00 daily. Medical Take with Branch lasix in the morning isosorbide 2020-0 Yes [id number] 15mg Take 0.5 [facility] mononitrate 4-22 tablets by it y of 30 mg 24 hr 00:00: mouth [place] tablet 00 daily. Medical Hold if Branch systolic blood pressure less than 120 Insulin 2020-0 Yes [id number] 10U inject 10 [facility] Glargine 4-22 Units ity of 100 unit/mL 00:00: under the [place] (3 mL) 00 skin at Medical injection bedtime. Branch vitamin 2019-0 2020- No [id number] 1000ug Take 1 [facility] B-12 1,000 4-22 07-22 tablet by ity of mcg tablet 00:00: 04:59 mouth [place] 00 :00 daily for Medical 90 days. Branch vitamin 2019-0 2020- No [id number] 1000ug Take 1 [facility] B-12 1,000 4-22 07-22 tablet by ity of mcg tablet 00:00: 04:59 mouth [place] 00 :00 daily for Medical 90 days. Branch vitamin 2020-0 2020- No [id number] 1000ug Take 1 [facility] B-12 1,000 4-22 07-22 tablet by ity of mcg tablet 00:00: 04:59 mouth [place] 00 :00 daily for Medical 90 days. Branch vitamin 2019-0 2020- No [id number] 1000ug Take 1 [facility] B-12 1,000 4-22 07-22 tablet by ity of mcg tablet 00:00: 04:59 mouth [place] 00 :00 daily for Medical 90 days. Branch glipiZIDE 5 2020- No [id number] 2.5mg Take 0.5 [facility] mg tablet 03-07-23 tablets by ity of 00:00: 04:59 mouth 2 [place] 00 :00 (two) Medical times Branch daily before breakfast and dinner for 30 days. metoprolol 2019- 2020- No [id number] 25mg Take 1 [facility] succinate - 05-23 tablet by ity of XL 25 mg 24 00:00: 04:59 mouth 2 [place] hr tablet 00 :00 (two) Medical times Branch daily for 30 days. OLANZapine 2019- 2020- No [id number] 2.5mg Take 1 [facility] 2.5 mg -06 04-23 tablet by ity of tablet 00:00: 04:59 mouth at [place] 00 :00 bedtime Medical for 30 Branch days. ranolazine 2019- 2020- No [id number] 1000mg Take 2 [facility] 500 mg 12 -06 04-23 tablets by ity of hr tablet 00:00: 04:59 mouth [place] 00 :00 every 12 Medical (twelve) Branch hours for 30 days. aspirin 81 2019- 2020- No [id number] 81mg Take 1 [facility] mg chewable -06 04-23 tablet by it y of tablet 00:00: 04:59 mouth [place] 00 :00 daily with Medical breakfast Branch for 30 days. atorvastati 2019- 2020- No [id number] 40mg Take 1 [facility] n 40 mg -06 04-23 tablet by ity of tablet 00:00: 04:59 mouth at [place] 00 :00 bedtime Medical for 30 Branch days. glipiZIDE 5 2020- No [id number] 2.5mg Take 0.5 [facility] mg tablet 03-07-23 tablets by ity of 00:00: 04:59 mouth 2 [place] 00 :00 (two) Medical times Branch daily before breakfast and dinner for 30 days. metoprolol 2019- 2020- No [id number] 25mg Take 1 [facility] succinate 4- 05-23 tablet by ity of XL 25 mg 24 00:00: 04:59 mouth 2 [place] hr tablet 00 :00 (two) Medical times Branch daily for 30 days. OLANZapine 2019- 2020- No [id number] 2.5mg Take 1 [facility] 2.5 mg 4-22 05-23 tablet by ity of tablet 00:00: 04:59 mouth at [place] 00 :00 bedtime Medical for 30 Branch days. ranolazine 2020-0 2020- No [id number] 1000mg Take 2 [facility] 500 mg 12 4-22 05-23 tablets by ity of hr tablet 00:00: 04:59 mouth [place] 00 :00 every 12 Medical (twelve) Branch hours for 30 days. aspirin 81 2019-0 2020- No [id number] 81mg Take 1 [facility] mg chewable 4-22 05-23 tablet by it y of tablet 00:00: 04:59 mouth [place] 00 :00 daily with Medical breakfast Branch for 30 days. atorvastati 2019-0 2020- No [id number] 40mg Take 1 [facility] n 40 mg 4-22 05-23 tablet by ity of tablet 00:00: 04:59 mouth at [place] 00 :00 bedtime Medical for 30 Branch days. glipiZIDE 5 2019-0 2020- No [id number] 2.5mg Take 0.5 [facility] mg tablet 4- 05-23 tablets by ity of 00:00: 04:59 mouth 2 [place] 00 :00 (two) Medical times Branch daily before breakfast and dinner for 30 days. metoprolol 2019-0 2020- No [id number] 25mg Take 1 [facility] succinate 4-22 05-23 tablet by ity of XL 25 mg 24 00:00: 04:59 mouth 2 [place] hr tablet 00 :00 (two) Medical times Branch daily for 30 days. OLANZapine 2020-0 2020- No [id number] 2.5mg Take 1 [facility] 2.5 mg 4-22 05-23 tablet by ity of tablet 00:00: 04:59 mouth at [place] 00 :00 bedtime Medical for 30 Branch days. ranolazine 2020-0 2020- No [id number] 1000mg Take 2 [facility] 500 mg 12 4-22 05-23 tablets by ity of hr tablet 00:00: 04:59 mouth [place] 00 :00 every 12 Medical (twelve) Branch hours for 30 days. aspirin 81 2020-0 2020- No [id number] 81mg Take 1 [facility] mg chewable 4-22 05-23 tablet by it y of tablet 00:00: 04:59 mouth [place] 00 :00 daily with Medical breakfast Branch for 30 days. atorvastati 2019- No [id number] 40mg Take 1 [facility] n 40 mg 03-07-23 tablet by ity of tablet 00:00: 04:59 mouth at [place] 00 :00 bedtime Medical for 30 Branch days. glipiZIDE 5 2019- No [id number] 2.5mg Take 0.5 [facility] mg tablet 03-07-23 tablets by ity of 00:00: 04:59 mouth 2 [place] 00 :00 (two) Medical times Branch daily before breakfast and dinner for 30 days. metoprolol 2019- No [id number] 25mg Take 1 [facility] succinate 03-07-23 tablet by ity of XL 25 mg 24 00:00: 04:59 mouth 2 [place] hr tablet 00 :00 (two) Medical times Branch daily for 30 days. ranolazine 2019- No [id number] 1000mg Take 2 [facility] 500 mg 12 03-07-23 tablets by ity of hr tablet 00:00: 04:59 mouth [place] 00 :00 every 12 Medical (twelve) Branch hours for 30 days. atorvastati 2019- No [id number] 40mg Take 1 [facility] n 40 mg 03-07-23 tablet by ity of tablet 00:00: 04:59 mouth at [place] 00 :00 bedtime Medical for 30 Branch days. furosemide 2019- No [id number] 40mg Take 1 [facility] 40 mg -06 04-08 tablet by ity of tablet 00:00: 00:00 mouth [place] 00 :00 every Medical morning Branch and evening. aspirin 81 2019- No [id number] 81mg Take 1 [facility] mg chewable - 05-08 tablet by it y of tablet 00:00: 00:00 mouth [place] 00 :00 daily with Medical breakfast Branch for 30 days. isosorbide 2020- No [id number] 15mg Take 0.5 [facility] mononitrate -06 04-08 tablets by i ty of 30 mg 24 hr 00:00: 00:00 mouth [place] tablet 00 :00 daily. Medical Hold if Branch systolic blood pressure less than 120 Insulin 2019- No [id number] 10U inject 10 [facility] Glargine - 05-08 Units ity of 100 unit/mL 00:00: 00:00 under the [place] (3 mL) 00 :00 skin at Medical injection bedtime. Branch glipiZIDE 5 2020- No [id number] 2.5mg Take 0.5 [facility] mg tablet 03-07 05-08 tablets by ity of 00:00: 00:00 mouth 2 [place] 00 :00 (two) Medical times Branch daily before breakfast and dinner for 30 days. metoprolol 2019- 2020- No [id number] 25mg Take 1 [facility] succinate - 05-08 tablet by ity of XL 25 mg 24 00:00: 00:00 mouth 2 [place] hr tablet 00 :00 (two) Medical times Branch daily for 30 days. ranolazine 2019- 2020- No [id number] 1000mg Take 2 [facility] 500 mg 12 - 05-08 tablets by ity of hr tablet 00:00: 00:00 mouth [place] 00 :00 every 12 Medical (twelve) Branch hours for 30 days. furosemide 2019- 2020- No [id number] 40mg Take 1 [facility] 40 mg -06 04-08 tablet by ity of tablet 00:00: 00:00 mouth [place] 00 :00 every Medical morning Branch and evening. aspirin 81 2019-2019- No [id number] 81mg Take 1 [facility] mg chewable - 05-08 tablet by it y of tablet 00:00: 00:00 mouth [place] 00 :00 daily with Medical breakfast Branch for 30 days. atorvastati 2019- 2020- No [id number] 40mg Take 1 [facility] n 40 mg - 05-08 tablet by ity of tablet 00:00: 00:00 mouth at [place] 00 :00 bedtime Medical for 30 Branch days. Magnesium 2019- 2020- No [id number] 400mg Take 400 [facility] Oxide 420 - 05-08 mg by ity of mg Tab 00:00: 00:00 mouth [place] 00 :00 daily. Medical Branch vitamin 2019- 2020- No [id number] 1000ug Take 1 [facility] B-12 1,000 - 05-08 tablet by ity of mcg tablet 00:00: 00:00 mouth [place] 00 :00 daily for Medical 90 days. Branch isosorbide 2019- 2020- No [id number] 15mg Take 0.5 [facility] mononitrate -22 05-08 tablets by i ty of 30 mg 24 hr 00:00: 00:00 mouth [place] tablet 00 :00 daily. Medical Hold if Branch systolic blood pressure less than 120 OLANZapine 2019- 2020- No [id number] 2.5mg Take 1 [facility] 2.5 mg - 05-07 tablet by ity of tablet 00:00: 00:00 mouth at [place] 00 :00 bedtime Medical for 30 Branch days. temazepam 2019- 2020- No [id number] 15mg Take 1 U nivers 15 mg 03-07 05-07 capsule by ity of capsule 00:00: 00:00 mouth at [place] 00 :00 bedtime as Medical needed for Branch Insomnia. potassium 2019- 2020- No [id number] 20meq Take 20 [facility] chloride 20 -22 05-07 mEq by ity o f mEq packet 00:00: 00:00 mouth [place] 00 :00 daily. Medical Take with Branch lasix in the morning OLANZapine 2019-2019- No [id number] 2.5mg Take 1 [facility] 2.5 mg 03-07-07 tablet by ity of tablet 00:00: 00:00 mouth at [place] 00 :00 bedtime Medical for 30 Branch days. temazepam 2019-2019- No [id number] 15mg Take 1 U nivers 15 mg - 05-07 capsule by ity of capsule 00:00: 00:00 mouth at [place] 00 :00 bedtime as Medical needed for Branch Insomnia. potassium 2019- 2020- No [id number] 20meq Take 20 [facility] chloride 20 -22 05-07 mEq by ity o f mEq packet 00:00: 00:00 mouth [place] 00 :00 daily. Medical Take with Branch lasix in the morning isosorbide 2019-2019- No 60mg 60 mg, Univ ers mononitrate - 04-21 Oral, ity of (IMDUR) 24 14:00: 13:43 DAILY, [place] hr tablet 00 :56 First dose Medi bird[place] 60 mg on Thu [place] 03/06/20 at 0900, Until Discontinu ed, Routine OLANZapine 2019- Yes 2.5mg 2.5 mg, Uni vers (ZyPREXA) 4-21 Oral, QHS, ity of tablet 2.5 02:00: First dose [place] mg 00 on [facility] 03/05/20 at Branch 2100, Until Discontinu ed, Routine insulin 2020-0 Yes 10U 10 Units, Unive rs glargine 4-21 Subcutaneo ity o f (LANTUS 02:00: us, QHS, [place] U-100) 00 First dose Medical injection on [facility] Branch 10 Units 03/05/20 at 2100, Until Discontinu ed, Routine donepezil 2020-0 Yes 5mg 5 mg, Univers (ARICEPT) 4-21 Oral, QHS, ity of tablet 5 mg 02:00: First dose [place] 00 on [facility] 03/05/20 at Branch 2100, Until Discontinu ed, Routine atorvastati 2020-0 Yes 40mg 40 mg, Univ ers n (LIPITOR) 4-21 Oral, QHS, it y of tablet 40 02:00: First dose [place] mg 00 on [facility] 03/05/20 at Branch 2100, Until Discontinu ed, Routine isosorbide 2020-0 2020- No 30mg 30 mg, Univ ers mononitrate 03-05-20 Oral, ity of (IMDUR) 24 15:30: 15:21 ONCE, 1 [place] hr tablet 00 :00 dose, [facility] Medic al 30 mg 03/05/20 at Branch 1030, Routine spironolact 2020-0 Yes 12.5mg 12.5 mg, Univers one 4-20 Oral, ity of (ALDACTONE) 14:00: DAILY, [place] tablet 12.5 00 First dose Me dical mg on [facility] 03/05/20 at 0900, Until Discontinu ed, Routine memantine 2020-0 Yes 10mg 10 mg, Univer s (NAMENDA) 4-20 Oral, ity of tablet 10 14:00: DAILY, [place] mg 00 First dose Medical on [facility] 03/05/20 at 0900, Until Discontinu ed, Routine
modular set crew member approving Restricted medication : MEGADC lisinopril 2020-0 2020- No 5mg 5 mg, Unive rs (PRINIVIL,Z 03-05-21 Oral, ity of ESTRIL) 14:00: 13:44 DAILY, [place] tablet 5 mg 00 :01 First dose Me dical on [facility] 03/05/20 at 0900, Until Discontinu ed, [...] 500 mg 00 First dose Medical on [facility] 03/05/20 at 0800, Until Discontinu ed, Routine metoprolol 2020-0 Yes 25mg 25 mg, Unive rs succinate 4-20 Oral, BID, ity of XL (TOPROL 13:00: First dose [place] XL) tablet 00 on [facility] Medical 25 mg 03/05/20 at Branch 0800, Until Discontinu ed, Routine magnesium 2020-0 Yes 400mg 400 mg, Univ ers oxide 4-20 Oral, BID, ity of (MAG-OX 13:00: First [place] 400) tablet 00 on [facility] Medica l 400 mg 03/05/20 at Branch 0800, Until Discontinu ed, Routine aspirin 2020-0 Yes 81mg 81 mg, Univers chewable -20 Oral, QAM ity of tablet 81 13:00: WITH [place] mg 00 BREAKFAST, Medical First dose Branch on [facility] 03/05/20 at 0800, Until Discontinu ed, Routine Sliding 2020-0 Yes Subcutaneo Univ ers Scale 4-20 us, AC+HS, ity of Insulin-Reg 12:30: First dose [place] ular + Fsbg 00 on [facility] Medica l Testing 03/05/20 at Branch 0730, Until Discontinu ed, Routine glipiZIDE 2020-0 2020- No 5mg 5 mg, Univer s (GLUCOTROL) -20 04-22 Oral, ity of tablet 5 mg 12:30: 19:41 BIDAC, [place] 00 :44 First dose Medical on [facility] 03/05/20 at 0730, Until Discontinu ed, [...] Starting Medica l 25 mL [facility] 03/04/20 at 2202, Until Discontinu ed, ADAMA, Blood Glucose < or = 70 mg/dL and patient is unable to swallow or has mental status changes. furosemide 2020-0 Yes 40mg 40 mg, Unive rs (LASIX) 4-20 Oral, ity of tablet 40 03:00: QAM+PM, [place] mg 00 First dose Medical on [facility] 03/04/20 at 2200, Until Discontinu ed, Routine cyanocobala 2020-0 Yes 1000ug 1,000 mcg, Univers min 4-20 Subcutaneo ity of (VITAMIN 03:00: us, Q24H, [place] B12) 00 First dose Medical injection on [facility] 1,000 mcg 03/04/20 at 2200, Until Discontinu ed, Routine heparin 2020-0 Yes 5000U 5,000 Univers (porcine) 4-20 Units, ity of injection 03:00: Subcutaneo [place] 5,000 Units 00 us, Q8H, Medi birdie First dose Branch on [place] 03/04/20 at 2200, Until Discontinu ed, Routine ondansetron 2020-0 Yes 4mg 4 mg, Slow Univers (ZOFRAN 4-20 IV Push, ity of (PF)) 02:34: Q6HPRN, [place] injection 4 40 Starting Medi birdie mg [facility] 03/04/20 at 2134, Until Discontinu ed, Routine, Nausea and Vomiting (N/V) traMADol 2020-0 2020- No 50mg 50 mg, Univer s (ULTRAM) 4-20 04-22 Oral, ity of tablet 50 02:34: 02:33 Q8HPRN, [place] mg 23 :23 Starting Medical [facility] 03/04/20 at 2134, Until 03/06/20 at 2133, Routine, Pain (scale 4-6) acetaminoph 2020-0 Yes 650mg 650 mg, Un mel en 4-20 Oral, ity of (TYLENOL) 02:34: Q6HPRN, [place] tablet 650 20 Starting Medic al mg [place] Branch 03/04/20 at 2134, Until Discontinu ed, Routine, Pain (scale 1-3) lisinopril 2020-0 Yes [id number] 5mg Take 1 [facility] 5 mg tablet 4-18 tablet by ity of 00:00: mouth [place] 00 daily. Medical Branch isosorbide 2020-0 Yes [id number] 30mg Take 1 [facility] mononitrate 4-18 tablet by ity of 30 mg 24 hr 00:00: mouth [place] tablet 00 daily. Medical Branch lisinopril 2020-0 Yes [id number] 5mg Take 1 [facility] 5 mg tablet 4-18 tablet by ity of 00:00: mouth [place] 00 daily. Medical Branch isosorbide 2020-0 Yes [id number] 30mg Take 1 [facility] mononitrate 4-18 tablet by ity of 30 mg 24 hr 00:00: mouth [place] tablet 00 daily. Medical Branch lisinopril 2019-0 2020- No [id number] 5mg Take 1 [facility] 5 mg tablet 4-18 04-22 tablet by it y of 00:00: 00:00 mouth [place] 00 :00 daily. Medical Branch isosorbide 2019-0 2020- No [id number] 30mg Take 1 [facility] mononitrate 4-18 04-22 [...] N ORAL 4-17 mouth. ity of 17:34: [place] [address] Medical Branch thiamine 2020-0 Yes 100mg Take 100 Univ ers (VITAMIN 4-17 mg by ity of B-1) 100 mg 17:34: mouth [place] tablet 27 daily. Medical Branch aspirin 81 2020-0 Yes 81mg Take 81 mg U nivers mg chewable 4-17 by mouth ity of tablet 17:34: daily. [place] [address] Medical Branch atorvastati 2020-0 Yes 40mg Take 40 mg Univers n 40 mg 4-17 by mouth ity of tablet 17:34: at [place] [address] bedtime. Medical Branch NaCl 0.9% 2020-0 Yes [...] 4-17 mouth. ity of complex and 17:34: [place] C ( 27 Medical COMPLEX-VIT Branch RAZA C-FOLIC ACID ORAL) Cholecalcif 2020-0 Yes Take by Un mel ann, 4-17 mouth. ity of Vitamin D3, 17:34: [place] 2,000 unit 27 Medical capsule Branch metoprolol 2020-0 Yes 12.5mg Take 12.5 Univers tartrate 4-17 mg by ity of 12.5 mg 17:34: mouth 2 [place] 27 (two) Medical times Branch daily. MULTIVITAMI 2020-0 Yes Take by Un mel N ORAL 4-17 mouth. ity of 17:34: [place] [address] Medical Branch thiamine 2020-0 Yes 100mg Take 100 Univ ers (VITAMIN 4-17 mg by ity of B-1) 100 mg 17:34: mouth [place] tablet 27 daily. Medical Branch aspirin 81 2020-0 Yes 81mg Take 81 mg U nivers mg chewable 4-17 by mouth ity of tablet 17:34: daily. [place] [address] Medical Branch atorvastati 2020-0 Yes 40mg Take [...] Until Discontinu ed, Routine furosemide 2020-0 Yes [id number] 40mg Take 1 [facility] 40 mg 4-17 tablet by ity of tablet 00:00: mouth [place] 00 every Medical morning Branch and evening. potassium 2020-0 Yes [id number] 20meq Take 20 [facility] chloride 20 4-17 mEq by ity of mEq packet 00:00: mouth [place] 00 daily. Medical Branch vitamin 2020-0 Yes [id number] 1000ug Take 1 U nivers B-12 1,000 4-17 tablet by ity of mcg tablet 00:00: mouth [place] 00 daily. Medical Branch furosemide 2020-0 Yes [id number] 40mg Take 1 [facility] 40 mg 4-17 tablet by ity of tablet 00:00: mouth [place] 00 every Medical morning Branch and evening. potassium 2020-0 Yes [id number] 20meq Take 20 [facility] chloride 20 4-17 mEq by ity of mEq packet 00:00: mouth [place] 00 daily. Medical Branch vitamin 2020-0 Yes [id number] 1000ug Take 1 U nivers B-12 1,000 4-17 tablet by ity of mcg tablet 00:00: mouth [place] 00 daily. Medical Branch furosemide 2020-0 2020- No [id number] 40mg Take 1 [facility] 40 mg 4-17 04-22 tablet by ity of tablet 00:00: 00:00 mouth [place] 00 :00 every Medical morning Branch and evening. potassium 2020-0 2020- No [id number] 20meq Take 20 [facility] chloride 20 4-17 04-22 mEq by ity o f mEq packet 00:00: 00:00 mouth [place] 00 :00 daily. Medical Branch vitamin 2020-0 2020- No [id number] 1000ug Take 1 Univers B-12 1,000 -17 04-22 tablet by ity of mcg tablet 00:00: 00:00 mouth [place] 00 :00 daily. Medical Branch cyanocobala 2020-0 Yes 1000ug 1,000 mcg, Univers min 4-16 Subcutaneo ity of (VITAMIN 20:45: us, Q24H, [place] B12) 00 First dose Medical injection on [facility] Branch 1,000 mcg 03/01/20 at 1545, Until Discontinu ed, Routine isosorbide 2020-0 Yes 30mg 30 mg, Unive rs mononitrate 4-16 Oral, ity of (IMDUR) 24 14:00: DAILY, [place] hr tablet 00 First dose Medi birdie [address] [facility] Branch 03/01/20 at 0900, Until Discontinu ed, Routine memantine 2019-0 Yes 10mg 10 mg, Univer s (NAMENDA) 4-16 Oral, ity of tablet 10 14:00: DAILY, [place] mg 00 First dose Medical on [facility] 03/01/20 at 0900, Until Discontinu ed, Routine
modular set crew member approving Restricted medication : MEGADC lisinopril 2020-0 Yes 5mg 5 mg, Univer s (PRINIVIL,Z 4-16 Oral, ity of ESTRIL) 14:00: DAILY, [place] tablet 5 mg 00 First dose Me dical on [facility] Branch 03/01/20 at 0900, Until Discontinu ed, Routine enoxaparin 2020-0 Yes 30mg 30 mg, Unive rs (LOVENOX) 4-16 Subcutaneo ity of injection 14:00: [place], DAILY, [place] 30 mg 00 First dose Medical on [facility] 03/01/20 at 0900, Until Discontinu ed, Routine KCL 2020-0 2020- No 20meq 20 mEq, Univers (KLOR-CON -16 04-16 Oral, ity of M20) tablet 14:00: 13:26 DAILY, [place] 20 mEq 00 :35 First dose Medical on [facility] 4/16/20 at 0900, Until Discontinu ed, Routine [...] [place] gram/50 mL 00 :00 dose, Thu [facility] birdie (4 %) 2 g 02/29/20 at [facility] piggyback 2230 metoprolol 2020-0 2020- No 5mg 5 mg, Slow Univers (LOPRESSOR) 03-01 IV Push, ity of injection 5 03:30: 03:37 ONCE, 1 [place] mg 00 :00 dose, Thu [facility] 02/29/20 at Branch 2230, ADAMA glipiZIDE 2020-0 Yes 5mg 5 mg, Univers (GLUCOTROL) 03-01 Oral, ity of tablet 5 mg 02:45: BIDAC, [place] 00 First dose Medical on Thu [place] 02/29/20 at 2145, Until Discontinu ed, Routine insulin 2020-0 Yes 10U 10 Units, Unive rs glargine 03-01 Subcutaneo ity o f (LANTUS 02:45: us, QHS, [place] U-100) 00 First dose Medical injection on Thu [place] 10 Units 02/29/20 at 2145, Until Discontinu [...] mg 00 First dose Medical on Thu [place] 02/29/20 at 2130, Until Discontinu ed, Routine [...] 02-14 by mouth ity of 00:00: daily. [place] 00 Medical Branch donepezil 5 2019- No 5mg Take 5 mg Univers mg tablet 02-1408 by mouth ity o f 00:00: 00:00 daily. [place] 00 :00 Medical Branch nitroglycer 2019- No [...] D3, 23:00: [place] 2,000 [facility] 52 Medical capsule Branch metoprolol 2020-0 Yes 12.5mg Take 12.5 Univers tartrate 3-03 mg by ity of 12.5 mg 23:00: mouth 2 [place] 52 (two) Medical times Branch daily. MULTIVITAMI 2020-0 Yes Take by Un mel N ORAL 3-03 mouth. ity of 23:00: [place] [address] Medical Branch thiamine 2020-0 Yes 100mg Take 100 Univ ers (VITAMIN 3-03 mg by ity of B-1) 100 mg 23:00: mouth [place] tablet 52 daily. Medical Branch aspirin 81 2020-0 Yes 81mg Take 81 mg U nivers mg chewable 3-03 by mouth ity of tablet 23:00: daily. [place] [address] Medical Branch atorvastati 2020-0 Yes 40mg Take 40 mg Univers n 40 mg 3-03 by mouth ity of tablet 23:00: at [place] [address] bedtime. Medical Branch NaCl 0.9% 2020-0 Yes [...] by ity of mEq packet 23:00: mouth [place] 52 daily. Medical Branch Cholecalcif 2020-0 Yes Take by Un mel ann, 3-03 mouth. ity of Vitamin D3, 23:00: [place] 2,000 unit 52 Medical capsule Branch metoprolol 2020-0 Yes 12.5mg Take 12.5 Univers tartrate 3-03 mg by ity of 12.5 mg 23:00: mouth 2 [place] [address] (two) Medical times Branch daily. MULTIVITAMI 2020-0 Yes Take by Un mel N ORAL 3-03 mouth. ity of 23:00: [place] [address] Medical Branch thiamine 2020-0 Yes 100mg Take 100 Univ ers (VITAMIN 3-03 mg by ity of B-1) 100 mg 23:00: mouth [place] tablet 52 daily. Medical Branch aspirin 81 2020-0 Yes 81mg Take 81 mg U nivers mg chewable 3-03 by mouth ity of tablet 23:00: daily. [place] [address] Medical Branch atorvastati 2020-0 Yes 40mg Take 40 mg Univers n 40 mg 3-03 by mouth ity of tablet 23:00: at [place] [address] bedtime. Medical Branch NaCl 0.9% 2020-0 Yes [...] by ity of mEq packet 23:00: mouth [place] 52 daily. Medical Branch Cholecalcif 2020-0 Yes Take by Un mel ann, 3-03 mouth. ity of Vitamin D3, 23:00: [place] 2,000 unit 52 Medical capsule Branch metoprolol 2020-0 Yes 12.5mg Take 12.5 Univers tartrate 3-03 mg by ity of 12.5 mg 23:00: mouth 2 [place] [address] (two) Medical times Branch daily. MULTIVITAMI 2020-0 [...] by mouth ity of tablet 23:00: daily. [place] [address] Medical Branch atorvastati 2020-0 Yes 40mg Take 40 mg Univers n 40 mg 3-03 by mouth ity of tablet 23:00: at [place] [address] bedtime. Medical Branch NaCl 0.9% 2020-0 Yes [...] by ity of mEq packet 23:00: mouth [place] 52 daily. Medical Branch Cholecalcif 2020-0 Yes [...] N ORAL 3-03 mouth. ity of 23:00: [place] 52 Medical Branch thiamine 2020-0 Yes 100mg Take 100 Univ ers (VITAMIN 3-03 mg by ity of B-1) 100 mg 23:00: mouth [place] tablet 52 daily. Medical Branch aspirin 81 2020-0 Yes 81mg Take 81 mg U nivers mg chewable 3-03 by mouth ity of tablet 23:00: daily. [address] Branch atorvastati 2019-0 Yes 40mg Take 40 mg Univers n 40 mg 3-03 by mouth ity of tablet 23:00: at [place] [address] bedtime. Medical Branch NaCl 0.9% 2019-0 Yes [...] First dose [place] mg 00 on [facility] 01/16/20 at Branch 2100, Until Discontinu ed, Routine ranolazine 2019-0 2020- No [id number] 500mg Take 1 [facility] 500 mg 12 01-16- tablet by ity of hr tablet 00:00: 04:59 mouth [place] 00 :00 every 12 Medical (twelve) Branch hours for 30 days. ranolazine 2020-0 2020- No [id number] 500mg Take 1 [facility] 500 mg 12 01-16 04- tablet by ity of hr tablet 00:00: 04:59 mouth [place] 00 :00 every 12 Medical (twelve) Branch hours for 30 days. ranolazine 2020-0 2020- No [id number] 500mg Take 1 [facility] 500 mg 12 01-16 04-03 tablet by ity of hr tablet 00:00: 04:59 mouth [place] 00 :00 every 12 Medical (twelve) Branch hours for 30 days. ranolazine 2020-0 2020- No [id number] 500mg Take 1 [facility] 500 mg 01-16 04-03 tablet by ity of hr tablet 00:00: 04:59 mouth [place] 00 :00 every 12 Medical (twelve) Branch hours for 30 days. ranolazine 2019-0 Yes 500mg 500 mg, Uni vers (RANEXA) 12 -02 Oral, ity of hr tablet 22:30: Q12H, [place] 500 mg 00 First dose Medical on [facility] 01/16/20 at 1630, Until Discontinu ed, Routine insulin 2019-0 Yes 30U 30 Units, Unive rs glargine 3-02 Subcutaneo ity o f (LANTUS 15:00: [place], DAILY, [place] U-100) 00 First dose Medical injection on [facility] Branch 30 Units 01/16/20 at 0900, Until Discontinu ed furosemide 2020-0 Yes 40mg 40 mg, Unive rs (LASIX) 01-15 Oral, ity of tablet 40 15:00: DAILY, [place] mg 00 First dose Medical on [facility] Branch 01/16/20 at 0900, Until Discontinu ed, Routine aspirin 2020-0 Yes 81mg 81 mg, Univers chewable 01-15 Oral, ity of tablet 81 15:00: DAILY, [place] mg 00 First dose Medical on [facility] Branch 01/16/20 at 0900, Until Discontinu ed, Routine metoprolol 2020-0 Yes 12.5mg 12.5 mg, U nivers tartrate 01-15 Oral, BID, ity o f (LOPRESSOR) 14:00: First dose [place] tablet 12.5 00 on [facility] Medica l mg 01/16/20 at Branch 0800, Until Discontinu ed, Routine Sliding 2020-0 Yes Subcutaneo Univ ers Scale 01-15 us, Q6H, ity of Insulin-Reg 12:00: First dose [place] ular + Fsbg 00 on [facility] Medica l Testing 01/16/20 at Branch [...] IV ity of (D50W) 10:52: Push, PRN, [place] injection 33 Starting Medica l 25 mL [facility] 01/16/20 Branch at 0452, Until Discontinu [...] IV Push, ity of (PF)) 07:55: Q6HPRN, [place] injection 4 01 Starting Medi birdie mg 01/16/20 Branch at 0155, Until Discontinu ed, Routine, Nausea and Vomiting (N/V) morpHINE 2019-0 2020- No 2mg 2 mg, Slow Un mel injection 2 01-15 03-03 IV Push, ity of mg 07:54: 07:53 Q6HPN, [place] 55 :55 Starting Medical [facility] 01/16/20 Branch at 0154, Until Tu01/17/20 at 0153, Routine, Pain (scale 7-10) traMADol 2019-0 2020- No 50mg 50 mg, Univer s (ULTRAM) 01-15 03-04 Oral, ity of tablet 50 07:54: 07:53 [facility] Medical [facility] 01/16/20 Branch at 0154, Until Thu01/18/20 at 0153, Routine, Pain (scale 4-6) acetaminoph 2019-0 Yes 650mg 650 mg, Un mel en 01-15 Oral, ity of (TYLENOL) 07:54: [facility], [place] tablet 650 44 Starting Medic al mg [facility] 01/16/20 Branch at 0154, Until Discontinu ed, Routine, Pain (scale 1-3) insulin 2020-0 2020- No 8U 8 Units, Unive rs regular 01-15 03- Slow IV ity of human 06:45: 05:40 Push, [place] (HUMULIN R) 00 :00 ONCE, 1 Medic [...] 01/15/20 at 2345, ADAMA furosemide 2018-11 Yes [id number] 40mg Take 1 Univers 40 mg 0-26 tablet by ity of tablet 00:00: mouth [place] 00 daily. Medical Branch furosemide 2018-11 Yes [id number] 40mg Take 1 Univers 40 mg 0-26 tablet by ity of tablet 00:00: mouth [place] 00 daily. Medical Branch furosemide 2018-11 Yes [id number] 40mg Take 1 Univers 40 mg 0-26 tablet by ity of tablet 00:00: mouth [place] 00 daily. Medical Branch furosemide 2018-11 Yes [id number] 40mg Take 1 Univers 40 mg 0-26 tablet by ity of tablet 00:00: mouth [place] 00 daily. Medical Branch furosemide 2018-11 2020- No [id number] 40mg Take 1 Univers 40 mg 0-26 04-17 tablet by ity of tablet 00:00: 00:00 mouth [place] 00 :00 daily. Medical Branch magnesium 2018-11 Yes [id number] 400mg Take 400 Univers oxide 420 0-23 mg by ity of mg Tab 00:00: mouth [place] 00 daily. Medical Branch magnesium 2018- Yes [id number] 400mg Take 400 Univers oxide 420 0-23 mg by ity of mg Tab 00:00: mouth [place] 00 daily. Medical Branch magnesium 2018- Yes [id number] 400mg Take 400 Univers oxide 420 0-23 mg by ity of mg Tab 00:00: mouth [place] 00 daily. Medical Branch magnesium 2018- Yes [id number] 400mg Take 400 Univers oxide 420 0-23 mg by ity of mg Tab 00:00: mouth [place] 00 daily. Medical Branch magnesium 2018- Yes [id number] 400mg Take 400 Univers oxide 420 0-23 mg by ity of mg Tab 00:00: mouth [place] 00 daily. Medical Branch magnesium 2018- Yes [id number] 400mg Take 400 Univers oxide 420 0-23 mg by ity of mg Tab 00:00: mouth [place] 00 daily. Medical Branch magnesium 2018- 2020- No [id number] 400mg Take 400 Univers oxide 420 0-23 04-22 mg by ity of mg Tab 00:00: 00:00 mouth [place] 00 :00 daily. Medical Branch Insulin 2018-0 Yes [id number] 30U inject 30 Univers Glargine 9-11 Units ity of 100 unit/mL 00:00: under the [place] (3 mL) 00 skin every Medical injection morning. Branch Insulin Yes [id number] 30U inject 30 Univers Glargine 9-11 Units ity of 100 unit/mL 00:00: under the [place] (3 mL) 00 skin every Medical injection morning. Branch Insulin Yes [id number] 30U inject 30 Univers Glargine 9-11 Units ity of 100 unit/mL 00:00: under the [place] (3 mL) 00 skin every Medical injection morning. Branch Insulin Yes [id number] 30U inject 30 Univers Glargine 9-11 Units ity of 100 unit/mL 00:00: under the [place] (3 mL) 00 skin every Medical injection morning. Branch Insulin Yes [id number] 30U inject 30 Univers Glargine 9-11 Units ity of 100 unit/mL 00:00: under the [place] (3 mL) 00 skin every Medical injection morning. Branch Insulin Yes [id number] 30U inject 30 Univers Glargine 9-11 Units ity of 100 unit/mL 00:00: under the [place] (3 mL) 00 skin every Medical injection morning. Branch Insulin Yes [id number] 30U inject 30 Univers Glargine 9-11 Units ity of 100 unit/mL 00:00: under the [place] (3 mL) 00 skin every Medical injection morning. Branch Insulin 2020- No [id number] 30U inject 30 Univers Glargine 9-11 04-22 [...] mg under ity of 15:26: the skin. [place] [address] Medical Branch Cholecalcif 0 Yes Take by Un mel ann, 5-10 mouth. ity of Vitamin D3, 15:26: [place] 2,000 unit 43 Medical capsule Branch metoprolol 0 Yes 12.5mg Take 12.5 Univers tartrate 5-10 mg by ity of 12.5 mg 15:26: mouth 2 [place] 43 (two) Medical times Branch daily. MULTIVITAMI 0 Yes Take by Un mel N ORAL 5-10 mouth. ity of 15:26: [place] [address] Medical Branch thiamine 0 Yes 100mg Take 100 Univ ers (VITAMIN 5-10 mg by ity of B-1) 100 mg 15:26: mouth [place] tablet 43 daily. Medical Branch aspirin 81 Yes 81mg Take 81 mg U nivers mg chewable 5-10 by mouth ity of tablet 15:26: daily. [place] [address] Medical Branch atorvastati 0 Yes 40mg Take 40 mg Univers n 40 mg 5-10 by mouth ity of tablet 15:26: at [place] 43 bedtime. Medical Branch furosemide 0 Yes 40mg Take 40 mg U nivers 40 mg 5-10 by mouth ity of tablet 15:26: daily. [place] [address] Medical Branch NaCl 0.9% 0 Yes 10mL [...] mg under ity of 15:26: the skin. [place] [address] Medical Branch Cholecalcif 0 Yes Take by Un mel ann, 5-10 mouth. ity of Vitamin D3, 15:26: [place] 2,000 unit 43 Medical capsule Branch metoprolol 0 Yes 12.5mg Take 12.5 Univers tartrate 5-10 mg by ity of 12.5 mg 15:26: mouth 2 [place] [address] (two) Medical times Branch daily. MULTIVITAMI 0 Yes Take by Un mel N ORAL 5-10 mouth. ity of 15:26: [place] [address] Medical Branch thiamine 2018-0 Yes 100mg Take 100 Univ ers (VITAMIN 5-10 mg by ity of B-1) 100 mg 15:26: mouth [place] tablet 43 daily. Medical Branch aspirin 81 0 Yes 81mg Take 81 mg U nivers mg chewable 5-10 by mouth ity of tablet 15:26: daily. [place] [address] Medical Branch atorvastati 0 Yes 40mg Take 40 mg Univers n 40 mg 5-10 by mouth ity of tablet 15:26: at [place] [address] bedtime. Medical Branch furosemide 0 Yes 40mg Take 40 mg U nivers 40 mg 5-10 by mouth ity of tablet 15:26: daily. [place] [address] Medical Branch NaCl 0.9% Yes 10mL Inject 10 Uni vers (NS) Soln 5-10 mL ity of 10 mL with 15:26: intravenou [place] sodium 43 sly once Medical chloride now. Branch 2.5 mEq/mL SolP 17.125 mEq insulin Yes [id number] 4U inject 4 U nivers lispro, 5-10 Units ity of human, 100 00:00: under the [place] unit/mL 00 skin 3 Medical injection (three) Branch times daily before meals. insulin 2018-0 Yes [id number] 4U inject 4 U nivers lispro, 5-10 Units ity of human, 100 00:00: under the [place] unit/mL 00 skin 3 Medical injection (three) Branch times daily before meals. insulin 2018-0 Yes [id number] 4U inject 4 U nivers lispro, 5-10 Units ity of human, 100 00:00: under the [place] unit/mL 00 skin 3 Medical injection (three) Branch times daily before meals. insulin 2018-0 Yes [id number] 4U inject 4 U nivers lispro, 5-10 Units ity of human, 100 00:00: under the [place] unit/mL 00 skin 3 Medical injection (three) Branch times daily before meals. insulin 2018-0 Yes [id number] 4U inject 4 U nivers lispro, 5-10 Units ity of human, 100 00:00: under the [place] unit/mL 00 skin 3 Medical injection (three) Branch times daily before meals. insulin 2018-0 Yes [id number] 4U inject 4 U nivers lispro, 5-10 Units ity of human, 100 00:00: under the [place] unit/mL 00 skin 3 Medical injection (three) Branch times daily before meals. Insulin 2018-0 Yes [id number] 18U inject Uni vers Glargine 5-10 18-24 ity of 100 unit/mL 00:00: Units [place] (3 mL) 00 under the Medical injection skin every Bran ch morning. insulin 2018-0 Yes [id number] 4U inject 4 U nivers lispro, 5-10 Units ity of human, 100 00:00: under the [place] unit/mL 00 skin 3 Medical injection (three) Branch times daily before meals. insulin 2018-0 Yes [id number] 4U inject 4 U nivers lispro, 5-10 Units ity of human, 100 00:00: under the [place] unit/mL 00 skin 3 Medical injection (three) Branch times daily before meals. insulin 2018-0 Yes [id number] 4U inject 4 U nivers lispro, 5-10 Units ity of human, 100 00:00: under the [place] unit/mL 00 skin 3 Medical injection (three) Branch times daily before meals. insulin 2018-0 Yes [id number] 4U inject 4 U nivers lispro, 5-10 Units ity of human, 100 00:00: under the [place] unit/mL 00 skin 3 Medical injection (three) Branch times daily before meals. insulin 2018-0 Yes [id number] 4U inject 4 U nivers lispro, 5-10 Units ity of human, 100 00:00: under the [place] unit/mL 00 skin 3 Medical injection (three) Branch times daily before meals. insulin 2020- No [id number] 4U inject 4 Univers lispro, 5-10 05-07 Units ity of human, 100 00:00: 00:00 under the [place] unit/mL 00 :00 skin 3 Medical injection (three) Branch times daily before meals. insulin 2020- No [id number] 4U inject 4 Univers lispro, 5-10 05-07 Units ity of human, 100 00:00: 00:00 under the [place] unit/mL 00 :00 skin 3 Medical injection (three) Branch times daily before meals. Insulin 2019- No [id number] 18U inject Un mel Glargine 5- 09-11 18-24 ity of 100 unit/mL 00:00: 00:00 Units [place] (3 mL) 00 :00 under the Medical injection skin every Bran ch morning. folic Yes Take by Univers acid/vit B 3-08 mouth. ity of complex and 16:39: [facility] ( 29 Medical COMPLEX-VIT Branch RAZA C-FOLIC ACID ORAL) potassium Yes 20meq Take 20 Univ ers chloride 20 3-08 mEq by ity of mEq packet 16:39: mouth [place] 29 daily. Medical Branch folic Yes Take by Univers acid/vit B 3-08 mouth. ity of complex and 16:39: [place] C ( 29 Medical COMPLEX-VIT Branch RAZA C-FOLIC ACID ORAL) potassium Yes 20meq Take 20 Univ ers chloride 20 3-08 mEq by ity of mEq packet 16:39: mouth [place] 29 daily. Medical Branch Potassium Potassium Yes [...] Yes Anneliese as [facility] ent [facility]ics Lasix Lasix Yes Anneliese [address] [facility] Isosorbide Isosorbide Yes Anneliese [address] [facility] [address] [facility] [place] [facility]ics Lyrica Lyrica Yes Ann[facility] capsule [facility] Immunizations Ordered Filled Immunization Date Status Comments [facility] e Immunization Name Name SARS-COV-2 COVID-19 2021-09-16 Completed Unive rsity of MODERNA VACCINE 00:00:00 [facility] [facility] SARS-COV-2 COVID-19 2021-09-16 Completed Unive rsity of MODERNA VACCINE 00:00:00 [facility] [facility] SARS-COV-2 COVID-19 2021-09-16 Completed Unive rsity of MODERNA VACCINE 00:00:00 [facility] [facility] SARS-COV-2 COVID-19 2021-08-17 Completed Unive rsity of MODERNA VACCINE 00:00:00 [facility] [facility] Influenza High Dose 2021-08-17 Completed Unive rsity of 00:00:00 [facility] SARS-COV-2 COVID-19 2021-08-17 Completed Unive rsity of MODERNA VACCINE 00:00:00 [facility] [facility] Influenza High Dose 2021-08-17 Completed Unive rsity of 00:00:00 [facility] SARS-COV-2 COVID-19 2021-08-17 Completed Unive rsity of MODERNA VACCINE 00:00:00 [facility] [facility] Influenza High Dose 2021-08-17 Completed Unive rsity of 00:00:00 [facility] Zoster(Zostavax)( 2020-09-14 Completed Unive rsity of ingles) 00:00:00 [facility] Zoster(Zostavax)( 2020-09-14 Completed Unive rsity of ingles) 00:00:00 [facility] Zoster(Zostavax)( 2020-09-14 Completed Unive rsity of ingles) 00:00:00 [place] [facility] Influenza High Dose 2020-07-13 Completed Unive rsity of 00:00:00 [facility] Influenza High Dose 2020-07-13 Completed Unive rsity of 00:00:00 [facility] Influenza High Dose 2020-07-13 Completed Unive rsity of 00:00:00 [facility] Influenza High Dose 2019-09-15 Completed Unive rsity of 00:00:00 [facility] Influenza High Dose 2019-09-15 Completed Unive rsity of 00:00:00 [facility] Influenza High Dose 2019-09-15 Completed Unive rsity of 00:00:00 [facility] Influenza Virus 2018-09-09 Completed Universit y of Vaccine 00:00:00 [facility] Influenza Virus 2018-09-09 Completed Universit y of Vaccine 00:00:00 [facility] Influenza Virus 2018-09-09 Completed Universit y of Vaccine 00:00:00 [facility] Influenza Virus 2018-09-09 Completed Universit y of Vaccine 00:00:00 [facility] Influenza Virus 2018-09-09 Completed Universit y of Vaccine 00:00:00 [facility] Influenza Virus 2018-09-09 Completed Universit y of Vaccine 00:00:00 [facility] Influenza Virus 2018-09-09 Completed Universit y of Vaccine 00:00:00 [facility] Influenza Virus 2018-09-09 Completed Universit y of Vaccine 00:00:00 [facility] Influenza Virus 2018-09-09 Completed Universit y of Vaccine 00:00:00 [facility] Influenza Virus 2018-09-09 Completed Universit y of Vaccine 00:00:00 [facility] Influenza Virus 2018-09-09 Completed Universit y of Vaccine 00:00:00 [facility] Influenza Virus 2018-09-09 Completed Universit y of Vaccine 00:00:00 [facility] Influenza Virus 2018-09-09 Completed Universit y of Vaccine 00:00:00 [facility] Influenza Virus 2018-09-09 Completed Universit y of Vaccine 00:00:00 [facility] Influenza Virus 2018-09-09 Completed Universit y of Vaccine 00:00:00 [facility] Influenza Virus 2018-09-09 Completed Universit y of Vaccine 00:00:00 [facility] Influenza Virus 2018-09-09 Completed Universit y of Vaccine 00:00:00 [facility] Influenza Virus 2018-09-09 Completed Universit y of Vaccine 00:00:00 [facility] Influenza Virus 2018-09-09 Completed Universit y of Vaccine 00:00:00 [facility] Influenza Virus 2018-09-09 Completed Universit y of Vaccine 00:00:00 [facility] Influenza Virus 2018-09-09 Completed Universit y of Vaccine 00:00:00 [facility] Pneumococcal 2016-11-02 Completed University o f Polysaccharide, [...] blood 2021-11-02 17:17:00 109 mm[Hg] Univer sity [facility] Diastolic blood 2021-11-02 17:17:00 67 mm[Hg] Unive rsity [facility] Heart rate 2021-11-02 17:17:00 84 /min [facility] Body temperature 2021-11-02 17:17:00 36.44 Priyanka [facility] rate 2021-11-02 17:17:00 18 /min [facility] Oxygen saturation in 2021-11-02 17:17:00 95 /min [facility] Arterial blood by [facility] Pulse oximetry Branch Body weight 2021-11-02 09:17:00 79.969 kg [facility] BMI 2021-11-02 09:17:00 27.61 kg/m2 [facility] Body height 2021-10-31 05:46:00 170.2 cm [facility] Systolic blood 2021-04-25 22:36:00 118 mm[Hg] Univer sity of pressure [facility] Diastolic blood 2021-04-25 22:36:00 70 mm[Hg] Unive rsity of [facility] Heart rate 2021-04-25 22:36:00 68 /min Universi ty [facility] [place] [facility] Respiratory rate 2021-04-25 22:36:00 18 /min Univ ersity of [place] [facility] Oxygen saturation in 2021-04-25 22:36:00 99 /min University of Arterial blood by [facility] birdie Pulse oximetry Branch Body temperature 2021-04-25 15:42:00 36.44 Priyanka Univ ersity of [place] [facility] Body weight 2021-04-25 15:42:00 81.647 kg [facility]i ty [facility] [place] [facility] BMI 2021-04-25 15:42:00 27.37 kg/m2 [facility] [place] [facility] Systolic blood 2020-06-26 10:00:00 124 mm[Hg] Univer sity of pressure [place] [facility] Diastolic blood 2020-06-26 10:00:00 78 mm[Hg] Unive rsity of pressure [place] [facility] Respiratory rate 2020-06-26 10:00:00 18 /min Univ ersity of [place] [facility] Oxygen saturation in 2020-06-26 10:00:00 98 /min University of Arterial blood by [facility] Pulse oximetry Branch Heart rate 2020-06-26 08:56:00 98 /min [facility]i ty [facility] [place] [facility] Body temperature 2020-06-26 08:56:00 37.17 Priyanka Univ ersity of [place] [facility] Body weight 2020-06-26 08:56:00 74.844 kg [facility]i [facility] [place] [facility] BMI 2020-06-26 08:56:00 25.09 kg/m2 [facility] [place] [facility] Systolic blood 2020-06-26 10:00:00 124 mm[Hg] Univer sity of pressure [place] [facility] Diastolic blood 2020-06-26 10:00:00 78 mm[Hg] Unive rsity of pressure [place] [facility] Respiratory rate 2020-06-26 10:00:00 18 /min Univ ersity of [place] [facility] Oxygen saturation in 2020-06-26 10:00:00 98 /min University of Arterial blood by [facility] birdie Pulse oximetry Branch Heart rate 2020-06-26 08:56:00 98 /min [facility]i ty [facility] [place] [facility] Body temperature 2020-06-26 08:56:00 37.17 Priyanka Univ ersity of [place] [facility] Body weight 2020-06-26 08:56:00 74.844 kg [facility]i ty [facility] [place] [facility] BMI 2020-06-26 08:56:00 25.09 kg/m2 [facility] [place] [facility] Systolic blood 2020-05-24 15:47:29 166 mm[Hg] Univer sity of pressure [place] [facility] Diastolic blood 2020-05-24 15:47:29 89 mm[Hg] Unive rsity of pressure [place] [facility] Heart rate 2020-05-24 15:47:29 86 /min Universi ty [facility] [place] [facility] Respiratory rate 2020-05-24 15:47:29 16 /min Univ ersity of [place] [facility] Oxygen saturation in 2020-05-24 15:47:29 97 /min University of Arterial blood by [place] [facility] Pulse oximetry Branch Body temperature 2020-05-24 11:44:00 36.94 Priyanka Univ ersity of [place] [facility] Body height 2020-05-24 11:44:00 172.7 cm [facility] [place] [facility] Body weight 2020-05-24 11:44:00 74.844 kg [facility]i [facility] [place] [facility] BMI 2020-05-24 11:44:00 25.09 kg/m2 [facility] [place] [facility] Systolic blood 2020-05-24 15:47:29 166 mm[Hg] Univer sity of pressure [place] [facility] Diastolic blood 2020-05-24 15:47:29 89 mm[Hg] Unive rsity of pressure [place] [facility] Heart rate 2020-05-24 15:47:29 86 /min [facility]i ty [facility] [place] [facility] Respiratory rate 2020-05-24 15:47:29 16 /min Univ ersity of [place] [facility] Oxygen saturation in 2020-05-24 15:47:29 97 /min University of Arterial blood by [place] [facility] birdie Pulse oximetry Branch Body temperature 2020-05-24 11:44:00 36.94 Priyanka Univ ersity of [place] [facility] Body height 2020-05-24 11:44:00 172.7 cm [facility]i [facility] [place] [facility] Body weight 2020-05-24 11:44:00 74.844 kg [facility] [place] [facility] BMI 2020-05-24 11:44:00 25.09 kg/m2 [facility] [place] [facility] Systolic blood 2020-03-24 02:31:00 127 mm[Hg] Univer sity of pressure [place] [facility] Diastolic blood 2020-03-24 02:31:00 72 mm[Hg] Unive rsity of pressure [place] [facility] Heart rate 2020-03-24 02:31:00 69 /min [facility]i [facility] [place] [facility] Body temperature 2020-03-24 02:31:00 36.39 Priyanka Univ ersity of [place] [facility] Respiratory rate 2020-03-24 02:31:00 18 /min Univ ersity of [place] [facility] Oxygen saturation in 2020-03-24 02:31:00 97 /min University of Arterial blood by [place] [facility] birdie Pulse oximetry Branch Systolic blood 2020-03-23 21:35:00 100 mm[Hg] Univer sity of pressure [place] [facility] Diastolic blood 2020-03-23 21:35:00 59 mm[Hg] Unive rsity of pressure [place] [facility] Heart rate 2020-03-23 21:35:00 79 /min [facility]i ty [facility] [place] [facility] Body temperature 2020-03-23 21:35:00 36.78 Priyanka Univ ersity of [place] [facility] Respiratory rate 2020-03-23 21:35:00 18 /min Univ ersity of [place] [facility] Oxygen saturation in 2020-03-23 21:35:00 99 /min University of Arterial blood by [place] [facility] birdie Pulse oximetry Branch Body weight 2020-03-23 09:41:00 76.613 kg [facility]i ty [facility] [place] [facility] BMI 2020-03-23 09:41:00 26.45 kg/m2 [facility] [place] [facility] Body height 2020-03-23 03:43:00 170.2 cm [facility] [place] [facility] Systolic blood 2020-03-21 20:55:00 128 mm[Hg] Univer sity of pressure [place] [facility] Diastolic blood 2020-03-21 20:55:00 61 mm[Hg] Unive rsity of pressure [place] [facility] Heart rate 2020-03-21 20:55:00 75 /min [facility]i ty [facility] [place] [facility] Respiratory rate 2020-03-21 20:55:00 10 /min Univ ersity of [place] [facility] Oxygen saturation in 2020-03-21 20:55:00 98 /min University of Arterial blood by [place] [facility] birdie Pulse oximetry Branch Body temperature 2020-03-21 20:03:00 37.83 Priyanka Univ ersity of [place] [facility] Body height 2020-03-21 20:03:00 170.2 cm [facility] [place] [facility] Body weight 2020-03-21 20:03:00 76.204 kg [facility] [place] [facility] BMI 2020-03-21 20:03:00 26.31 kg/m2 [facility] [place] [facility] Systolic blood 2020-03-07 20:50:00 118 mm[Hg] Univer sity of pressure [place] [facility] Diastolic blood 2020-03-07 20:50:00 65 mm[Hg] Unive rsity of pressure [place] [facility] Heart rate 2020-03-07 20:50:00 85 /min [facility] [place] [facility] Body temperature 2020-03-07 20:50:00 36.39 Priyanka Univ ersity of [place] [facility] Respiratory rate 2020-03-07 20:50:00 18 /min Univ ersity of [place] [facility] Oxygen saturation in 2020-03-07 20:50:00 95 /min University of Arterial blood by [place] [facility] birdie Pulse oximetry Branch Body height 2020-03-05 02:35:00 172.7 cm [facility] [place] [facility] Body weight 2020-03-05 02:35:00 73.483 kg [facility] [place] [facility] BMI 2020-03-05 02:35:00 24.63 kg/m2 [facility] [place] [facility] Systolic blood 2020-03-02 15:49:00 122 mm[Hg] Univer sity of pressure [place] [facility] Diastolic blood 2020-03-02 15:49:00 81 mm[Hg] Unive rsity of pressure [place] [facility] Heart rate 2020-03-02 15:49:00 89 /min [facility] [place] [facility] Body temperature 2020-03-02 15:49:00 37.06 Priyanka Univ ersity of [place] [facility] Respiratory rate 2020-03-02 15:49:00 19 /min Univ ersity of [place] [facility] Oxygen saturation in 2020-03-02 15:49:00 96 /min University of Arterial blood by [place] [facility] birdie Pulse oximetry Branch Body height 2020-03-01 00:54:00 170.2 cm [facility] [place] [facility] Body weight 2020-03-01 00:54:00 76.975 kg [facility] [place] [facility] BMI 2020-03-01 00:54:00 26.58 kg/m2 [facility] [place] [facility] Systolic blood 2020-01-17 21:08:00 116 mm[Hg] Univer sity of pressure [facility] Diastolic blood 2020-01-17 21:08:00 78 mm[Hg] Unive [facility] Heart rate 2020-01-17 21:08:00 88 /min [facility] Body temperature 2020-01-17 21:08:00 36.72 Priyanka [facility] Respiratory rate 2020-01-17 21:08:00 18 /min [facility] Oxygen saturation in 2020-01-17 21:08:00 98 /min [facility] Arterial blood by [facility] Pulse oximetry [place] Body height 2020-01-16 06:21:00 172.7 cm [facility] Body weight 2020-01-16 04:35:00 83.462 kg [facility] BMI 2020-01-16 04:35:00 27.98 kg/m2 [facility] Procedures Procedure Date / Time Performing Clinician Source Performed EXTERNAL PROVIDER RECORDS 2021-11-19 06:01:00 Doctor Unassigned, [facility] POCT GLUCOSE (AUTOMATED) 2021-11-02 22:49:00 [facility] [facility] POCT GLUCOSE (AUTOMATED) 2021-11-02 17:06:00 Aida Shah [facility] POCT GLUCOSE (AUTOMATED) 2021-11-02 13:30:00 Aida Shah [facility] TROPONIN I 2021-11-02 09:29:00 Alexandra Hdz [facility] BASIC METABOLIC PANEL 2021-11-02 09:29:00 Sridhar Gordon [facility] (NA, K, CL, CO2, GLUCOSE, Medica l Branch BUN, CREATININE, CA) CBC WITH DIFF 2021-11-02 09:29:00 Sridhar Gordon [facility] N-TERMINAL PRO-BNP 2021-11-02 09:29:00 [facility] PO[facility] GLUCOSE (AUTOMATED) 2021-11-02 01:27:00 Aida Shah [facility] POCT GLUCOSE (AUTOMATED) 2021-11-01 17:37:00 AlyssaKeerthii [facility] POCT GLUCOSE (AUTOMATED) 2021-11-01 13:40:00 AlyssaKeerthii [facility] POCT GLUCOSE (AUTOMATED) 2021-11-01 01:10:00 Aida Shah [facility] POCT GLUCOSE (AUTOMATED) 2021-10-31 22:28:00 Alyssa Aida Nilda [facility] POCT GLUCOSE (AUTOMATED) 2021-10-31 17:29:00 [facility] 2021-10-31 16:25:00 Alexandra Hdz [facility] TRANSTHORACIC ECHO (TTE) 2021-10-31 15:53:00 Alexandra Hdz [facility] COMPLETE W/ CONTRAST [facility] POCT GLUCOSE (AUTOMATED) 2021-10-31 13:39:00 Martha Drake [facility] TROPONIN I 2021-10-31 10:08:00 [facility] BASIC METABOLIC PANEL 2021-10-31 10:08:00 [facility] (NA, K, CL, CO2, GLUCOSE, Medica l Branch BUN, CREATININE, CA) LIPID PANEL ([id number])(TOTAL 2021-10-31 10:08:00 Alexandra Hdz [facility] CHOLESTEROL, [facility] TRIGLYCERIDES, HDL) CBC WITH DIFF 2021-10-31 10:08:00 [facility] URINALYSIS 2021-10-31 10:08:00 [facility] N-TERMINAL PRO-BNP 2021-10-31 10:08:00 Alexandra Hdz [facility] TROPONIN I 2021-10-31 06:17:00 [facility]ST 1 VW 2021-10-31 01:30:56 Martah Drake [facility] LIPASE 2021-10-31 01:25:00 Martha Drake [facility] TROPONIN I 2021-10-31 01:25:00 Martha Drake [facility] COMP. METABOLIC PANEL 2021-10-31 01:25:00 Martha Drake [facility] ([id number]) Medical Branch CBC WITH DIFF 2021-10-31 01:25:00 Martha Drake [facility] GLYCOSYLATED HEMOGLOBIN 2021-10-31 01:25:00 Sarah Harrell [facility] (A1C) [facility] PROTHROMBIN TIME / INR 2021-10-31 01:25:00 Martha Drake [facility] ACTIVATED PARTIAL 2021-10-31 01:25:00 Martha Drake [facility] N-TERMINAL PRO-BNP 2021-10-31 01:25:00 Martha Drake [facility] COVID-19 (ID NOW RAPID 2021-10-31 01:25:00 Martha Drake [facility] TESTING) Medical Branch LAB ONLY COVID 2021-10-31 01:25:00 Martha Drake [facility] INTERPRETATION [facility] HB ECG ROUTINE & RHYTHM 2021-10-31 01:20:03 Martha Drake [facility] STRIP [facility] URINALYSIS 2021-04-25 21:01:00 Nallely Zhao [facility] XR LUMBAR SPINE 2 VW 2021-04-25 18:41:00 Nallely Zhao [facility] XR HIPS 2 VW LEFT 2021-04-25 18:41:00 Nallely Zhao [facility] CONSENT/REFUSAL FOR 2021-04-25 15:43:06 Doctor Unassigned, [facility] DIAGNOSIS AND TREATMENT [facility] CERVICAL SPINE WO 2020-06-26 09:35:01 Martha Drake [facility] CONTRAST [facility] CT LUMBAR SPINE WO 2020-06-26 09:35:01 Martha Drake [facility] CT THORACIC SPINE WO 2020-06-26 09:35:01 Martha Drake [facility] CONTRAST [facility] UNILATERAL DUPLEX SCAN OF 2020-05-24 14:53:40 [facility] LAB Medical [facility] XR ANKLE 3+ VW LEFT 2020-05-24 13:22:26 Charanjit Heck [facility] HEPATIC FUNCTION PANEL 2020-05-24 13:13:00 Charanjit Heck [facility] ([id number]) (ALB,T.PRO,BILI Medical Branch T,BU/BC,ALT,AST,ALK PHOS) BASIC METABOLIC PANEL 2020-05-24 13:13:00 Charanjit Heck [facility] (NA, K, CL, CO2, GLUCOSE, Medica l Branch BUN, CREATININE, CA) CBC WITH DIFFERENTIAL 2020-05-24 13:13:00 Charanjit Heck [facility] PROTHROMBIN TIME / INR 2020-05-24 13:13:00 Charanjit Heck [facility] ACTIVATED PARTIAL 2020-05-24 13:13:00 Charanjit Heck [facility] NOTICE OF PRIVACY 2020-05-24 11:38:26 Doctor Unassigned, [facility] PRACTICES [facility] [place] CONSENT/REFUSAL FOR 2020-05-24 11:35:52 Doctor Unacassie, [facility] DIAGNOSIS AND TREATMENT [facility] POCT GLUCOSE (AUTOMATED) 2020-03-23 22:32:00 Jamel Flores [facility] POCT GLUCOSE (AUTOMATED) 2020-03-23 18:07:00 Jamel Flores [facility] POCT GLUCOSE (AUTOMATED) 2020-03-23 14:57:00 Jamel Flores [facility] ECHO ROUTINE W/DOPPLER 2020-03-23 13:33:57 Tereza Cano [facility] COLOR [facility] EKG-12 LEAD 2020-03-23 12:56:59 Jamel Flores [facility] MAGNESIUM 2020-03-23 11:15:00 Tereza Cano [facility] TROPONIN I 2020-03-23 11:15:00 Bodani, [facility] BASIC METABOLIC PANEL 2020-03-23 11:15:00 [facility] (NA, K, CL, CO2, GLUCOSE, Medica l Branch BUN, CREATININE, CA) PROTHROMBIN TIME / INR 2020-03-23 11:15:00 Tereza Cano [facility] ACTIVATED PARTIAL 2020-03-23 11:15:00 [facility] EKG-12 LEAD 2020-03-23 07:51:19 Jamel Flores [facility] MAGNESIUM 2020-03-23 05:55:00 Jerome [facility] TROPONIN I 2020-03-23 05:55:00 Jerome [facility] BASIC METABOLIC PANEL 2020-03-23 05:55:00 Jerome [facility] (NA, K, CL, CO2, GLUCOSE, Medica l Branch BUN, CREATININE, CA) LIPID PANEL ([id number])(TOTAL 2020-03-23 05:55:00 Tereza Cano [facility] CHOLESTEROL, [facility] TRIGLYCERIDES, HDL) PROTHROMBIN TIME / INR 2020-03-23 02:55:00 Sallie Eckert [facility] ACTIVATED PARTIAL 2020-03-23 02:55:00 Babar [facility] XR CHEST 2 VW 2020-03-23 01:52:37 Esteban Singletary [facility] CORONAVIRUS COVID-19 2020-03-23 00:50:00 Esteban Singletary [facility] TESTING [facility] FERRITIN SERUM 2020-03-22 23:36:00 [facility] 2020-03-22 23:36:00 Esteban Singletary [facility] COMP. METABOLIC PANEL 2020-03-22 23:36:00 Esteban Singletary [facility] ([id number]) Medical Branch IRON PANEL 2020-03-22 23:36:00 Jerome [facility] CBC WITH DIFFERENTIAL 2020-03-22 23:36:00 Singletary, [facility] N-TERMINAL PRO-BNP 2020-03-22 23:36:00 Esteban Singletary [facility] EKG-12 LEAD 2020-03-22 23:08:53 Hayder [facility] EKG-12 LEAD 2020-03-22 23:08:15 Hayder [facility] XR CHEST 1 VW 2020-03-21 20:42:35 Myles Harry [facility] LACTIC ACID WHOLE BLOOD 2020-03-21 20:38:00 Myles Harry [facility] LIPASE 2020-03-21 20:19:00 Myles Harry [facility] TROPONIN I 2020-03-21 20:19:00 Myles Harry [facility] COMP. METABOLIC PANEL 2020-03-21 20:19:00 Myles Harry [facility] ([id number]) [facility] PROTHROMBIN TIME / INR 2020-03-21 20:19:00 Myles Harry [facility] N-TERMINAL PRO-BNP 2020-03-21 20:19:00 Myles Harry [facility] CORONAVIRUS COVID-19 2020-03-21 20:19:00 Myles Harry [facility] EKG-12 LEAD 2020-03-21 20:11:28 Myles Harry [facility] POCT GLUCOSE (AUTOMATED) 2020-03-07 20:56:00 Sarah Harrell [facility] POCT GLUCOSE (AUTOMATED) 2020-03-07 15:34:00 Sarah Harrell [facility] POCT GLUCOSE (AUTOMATED) 2020-03-07 12:56:00 [facility]io [facility]esar [facility] URIC ACID 2020-03-07 10:14:00 Holland Briscoe [facility] TROPONIN I 2020-03-07 10:14:00 Lulu Harris [place] [facility] BASIC METABOLIC PANEL 2020-03-07 10:14:00 Sarah Harrell [facility] (NA, K, CL, CO2, GLUCOSE, Medica l Branch BUN, CREATININE, CA) CBC WITH DIFFERENTIAL 2020-03-07 10:14:00 Julio Cesar [facility] N-TERMINAL PRO-BNP 2020-03-07 10:14:00 Lulu Harris [facility] POCT GLUCOSE (AUTOMATED) 2020-03-06 21:16:00 Edionrosalio [facility] POCT GLUCOSE (AUTOMATED) 2020-03-06 16:10:00 Edionrosalio [facility] POCT GLUCOSE (AUTOMATED) 2020-03-06 12:38:00 Edconsuelo [facility] TROPONIN I 2020-03-06 08:51:00 Lulu Harris [facility] BASIC METABOLIC PANEL 2020-03-06 08:51:00 [facility] (NA, K, CL, CO2, GLUCOSE, Medica l Branch BUN, CREATININE, CA) CBC WITH DIFFERENTIAL 2020-03-06 08:51:00 Julio Cesar [facility] POCT GLUCOSE (AUTOMATED) 2020-03-06 01:16:00 Edconsuelo [facility] TROPONIN I 2020-03-05 23:25:00 Edconsuelo [facility] POCT GLUCOSE (AUTOMATED) 2020-03-05 21:14:00 Edconsuelo [facility] POCT GLUCOSE (AUTOMATED) 2020-03-05 16:39:00 Edionrosalio [facility] POCT GLUCOSE (AUTOMATED) 2020-03-05 12:47:00 Edionrosalio [facility] TROPONIN I 2020-03-05 09:50:00 [facility] BASIC METABOLIC PANEL 2020-03-05 09:50:00 [facility] (NA, K, CL, CO2, GLUCOSE, Medica l Branch BUN, CREATININE, CA) CBC WITH DIFFERENTIAL 2020-03-05 09:50:00 [facility] 2020-03-05 00:36:54 Bobo Urrutia [facility] EKG-12 LEAD 2020-03-05 00:31:03 Bobo Urrutia [facility] CORONAVIRUS COVID-19 2020-03-05 00:03:00 Charanjit Heck [facility] TESTING [facility] XR CHEST 1 VW 2020-03-04 23:58:59 Charanjit Heck [facility] LIPASE 2020-03-04 23:29:00 Charanjit Heck [facility] TROPONIN I 2020-03-04 23:29:00 Charanjit Heck [facility] HEPATIC FUNCTION PANEL 2020-03-04 23:29:00 Charanjit Heck [facility] ([id number]) (ALB,T.PRO,BILI Medical Branch T,BU/BC,ALT,AST,ALK PHOS) BASIC METABOLIC PANEL 2020-03-04 23:29:00 Charanjit Heck [facility] (NA, K, CL, CO2, GLUCOSE, Medica l Branch BUN, CREATININE, CA) CBC WITH DIFFERENTIAL 2020-03-04 23:29:00 Charanjit Heck [facility] PROTHROMBIN TIME / INR 2020-03-04 23:29:00 Charanjit Heck [facility] ACTIVATED PARTIAL 2020-03-04 23:29:00 Charanjit Heck [facility] N-TERMINAL PRO-BNP 2020-03-04 23:29:00 Charanjit Heck [facility] EKG-12 LEAD 2020-03-04 23:15:42 Charanjit Heck [facility] EKG-12 LEAD 2020-03-04 23:10:23 Charanjit Heck [facility] EMERGENCY DEPARTMENT 2020-03-04 05:01:00 Doctor Unassigned, [facility] DOCUMENTS [facility] POCT GLUCOSE (AUTOMATED) 2020-03-02 15:52:00 Lulu Harris [facility] POCT GLUCOSE (AUTOMATED) 2020-03-02 12:39:00 Lulu Harris [facility] MAGNESIUM 2020-03-02 08:57:00 Carolyn, [facility] BASIC METABOLIC PANEL 2020-03-02 08:57:00 Carolyn [facility] (NA, K, CL, CO2, GLUCOSE, Medica l Branch BUN, CREATININE, CA) N-TERMINAL PRO-BNP 2020-03-02 08:57:00 Carolyn [facility] POCT GLUCOSE (AUTOMATED) 2020-03-01 20:39:00 Lulu Harris [facility] MAGNESIUM 2020-03-01 08:43:00 [facility] 2020-03-01 08:43:00 Carolyn [facility] BASIC METABOLIC PANEL 2020-03-01 08:43:00 Lulu Harris [facility] (NA, K, CL, CO2, GLUCOSE, Medica l Branch BUN, CREATININE, CA) CBC WITH DIFFERENTIAL 2020-03-01 08:43:00 Steven [facility] N-TERMINAL PRO-BNP 2020-03-01 08:43:00 Carolyn [facility] VITAMIN B12, LEVEL 2020-03-01 03:49:00 Carolyn [facility] FOLATE 2020-03-01 03:49:00 Carolyn [facility] SEDIMENTATION RATE 2020-03-01 03:49:00 Carolyn [facility] POCT GLUCOSE (AUTOMATED) 2020-03-01 03:39:00 Lulu Harris [facility] PHOSPHORUS 2020-03-01 02:28:00 Steven [facility] URIC ACID 2020-03-01 02:28:00 Carolyn [facility] TROPONIN I 2020-03-01 02:28:00 Carolyn [facility] HEPATIC FUNCTION PANEL 2020-03-01 02:28:00 Carolyn alek [facility] ([id number]) (ALB,T.PRO,BILI Medical Branch T,BU/BC,ALT,AST,ALK PHOS) PROTHROMBIN TIME / INR 2020-03-01 02:28:00 Ivory Leon [facility] N-TERMINAL PRO-BNP 2020-03-01 02:28:00 Lulu Harris [facility] PROCALCITONIN 2020-03-01 02:28:00 Carolyn [facility] EKG-12 LEAD 2020-03-01 01:54:29 Carolyn [facility] EKG-12 LEAD 2020-02-29 23:16:21 Bobo Urrutia [facility] XR CHEST 1 VW COVID 2020-02-29 23:14:25 Bobo Urrutia [facility] EKG-12 LEAD 2020-02-29 23:13:50 Bobo Urrutia [facility] LACTIC ACID WHOLE BLOOD 2020-02-29 22:21:00 Bobo Urrutia [facility] CORONAVIRUS COVID-19 2020-02-29 22:20:00 Bobo Urrutia [facility] CREATINE KINASE 2020-02-29 22:14:00 Carolyn [facility] URIC ACID 2020-02-29 22:14:00 Carolyn [facility] LIPASE 2020-02-29 22:14:00 Bobo Urrutia [facility] MAGNESIUM 2020-02-29 22:14:00 Carolyn [facility] TROPONIN I 2020-02-29 22:14:00 Bobo Urrutia [facility] THYROID STIMULATING 2020-02-29 22:14:00 Carolyn [facility] HORMONE [facility] BASIC METABOLIC PANEL 2020-02-29 22:14:00 Bobo Urrutia [facility] (NA, K, CL, CO2, GLUCOSE, Medica l Branch BUN, CREATININE, CA) CBC WITH DIFFERENTIAL 2020-02-29 22:14:00 Bobo Urrutia [facility] GLYCOSYLATED HEMOGLOBIN 2020-02-29 22:14:00 Ivory Leon [facility] (A1C) [facility] N-TERMINAL PRO-BNP 2020-02-29 22:14:00 Ivory Leon [facility] EKG-12 LEAD 2020-02-29 21:59:12 Bobo Urrutia [facility] EKG-12 LEAD 2020-02-29 21:48:49 Bobo Urrutia [facility] EMERGENCY DEPARTMENT 2020-02-29 05:01:00 Doctor Unassigned, [facility] DOCUMENTS [facility] POCT GLUCOSE (AUTOMATED) 2020-01-17 18:15:00 Edconsuelo [facility] TROPONIN I 2020-01-17 16:31:00 Julio Cesar [facility] ACTIVATED PARTIAL 2020-01-17 16:31:00 Carolyn [facility] POCT GLUCOSE (AUTOMATED) 2020-01-17 11:56:00 Julio Cesar [facility] TROPONIN I 2020-01-17 09:52:00 Julio Cesar [facility] BASIC METABOLIC PANEL 2020-01-17 09:52:00 [facility] (NA, K, CL, CO2, GLUCOSE, Medica l Branch BUN, CREATININE, CA) CBC WITH DIFFERENTIAL 2020-01-17 09:52:00 [facility] 2020-01-17 09:52:00 [facility] ([facility]OMATED) 2020-01-16 23:59:00 Julio Cesar [facility] EKG-12 LEAD 2020-01-16 22:15:50 Julio Cesar [facility] TROPONIN I 2020-01-16 20:04:00 Julio Cesar [facility] ACTIVATED PARTIAL 2020-01-16 20:04:00 Ayo Scruggs [facility] POCT GLUCOSE (AUTOMATED) 2020-01-16 17:05:00 Julio Cesar [facility] POCT GLUCOSE (AUTOMATED) 2020-01-16 13:38:00 Edconsuelo [facility] TROPONIN I 2020-01-16 11:11:00 Julio Cesar [facility] LIPID PANEL ([id number])(TOTAL 2020-01-16 11:11:00 Julio Cesar [facility] TRIGLY[facility]ERID[facility], HDL) ACTIVATED PARTIAL 2020-01-16 11:11:00 Julio Cesar [facility] CRITICAL CARE 2020-01-16 05:48:18 Charanjit Heck [facility] XR CHEST 1 VW 2020-01-16 04:46:44 Charanjit Heck [facility] TROPONIN I 2020-01-16 04:38:00 Umang Charanjit [facility] HEPATIC FUNCTION PANEL 2020-01-16 04:38:00 Charanjit Heck [facility] ([id number]) (ALB,T.PRO,BILI Medical Branch T,BU/BC,ALT,AST,ALK PHOS) BASIC METABOLIC PANEL 2020-01-16 04:38:00 Umang Charanjit [facility] (NA, K, CL, CO2, GLUCOSE, Medica l Branch BUN, CREATININE, CA) CBC WITH DIFFERENTIAL 2020-01-16 04:38:00 Umang Charanjit [facility] GLYCOSYLATED HEMOGLOBIN 2020-01-16 04:38:00 [facility] PROTHROMBIN TIME / INR 2020-01-16 04:38:00 Charanjit Heck [facility] ACTIVATED PARTIAL 2020-01-16 04:38:00 Umang [facility] N-TERMINAL PRO-BNP 2020-01-16 04:38:00 Charanjit Heck [facility] EKG-12 LEAD 2020-01-16 04:37:48 Umang Charanjit [facility] EKG-12 LEAD 2020-01-16 04:35:35 Umang Charanjit [facility] AUTHORIZATION FOR RELEASE 2019-07-12 05:01:00 Doctor Unassigned, [facility] Encounters Start End Encounter Admission Attending Care Care Encounter Source Date/Time Date/Time Type Type Clinicians Facility Department ID 2021-12-16 Inpatient SERA Villavicencio [id number] [facility] 11:30:00 Jim [facility] 2021-12-16 Outpatient STLMLC STLMLC [id number] 09[facility]19[facility]01 [facility] 2021-12-11 Outpatient Lester, STLMLC STLMLC [id number] 14:38:21 Anneliese [facility] 2021-12-11 Outpatient Lester, STLMLC STLMLC [id number] 11:50:18 [facility]e [facility] 2021-09-16 Emergency [facility] [id number] Univers 00:23:34 [facility] 2021-09-13 Emergency [facility] [id number] [facility]13 Emergency [facility] [id number] Univers 05:40:48 [facility] 2021-12-25 2021-12-25 Inpatient ATTAR, [facility] [id number] 00:00:00 00:00:[address] 2021-12-19 2021-12-25 Inpatient LAUREN, [facility] [id number] [place] 00:00:00 00:00:00 JAYSON [address] 2021-12-24 2021-12-24 ambulatory [facility]LMLC [facility] [id number] [facility] 2021-12-20 2021-12-20 Inpatient ATTAR, [facility] [id number] [place] 00:00:00 00:00:[address] 2021-12-17 2021-12-17 ambulatory STLMLC STLMLC [id number] [facility] 2021-12-16 2021-12-16 ambulatory STLMLC STLMLC [id number] [facility] 2021-11-19 2021-11-19 Jose Alejandro JONES [id number] Univers 00:00:00 00:00:00 Only Unassigned, ASHLEIGH [id number] ity of [facility] [id number] [place] [phone] [facility] 009 Branch 2021-11-04 2021-11-04 Transition SHAREE Maria [id number] Univers 00:00:00 00:00:00 of Care Supa [place] [id number] [id number] [id number] [facility] 403 Branch 2021-10-30 2021-11-02 Inpatient X ALYSSA [facility] ZEFERINO [id number] Univers 19:14:00 18:15:00 AIDA ity of [facility] 2021-10-30 2021-11-02 [facility] [id number]. [id number] Univers 19:14:00 18:15:00 Encounter Aida Shah [id number] ity of [id number] [id number] [facility] 081 Branch 2021-05-17 2021-05-17 Letter PcpROBERT [id number] Univers 00:00:00 00:00:00 (Out) Patient ASHLEIGH [id number] it y of Does Not HOSPITAL [id number] [place] [phone] [facility] 019 Branch 2021-04-25 2021-04-25 Emergency Cece, TRAUMA [id number] Univers 10:43:00 17:38:00 [facility] [id number] i ty of [place] [id number] [facility] 014 Branch 2020-06-26 2020-06-26 Emergency [facility] [id number] 03:50:00 06:45:00 Martha Cortez [id number] [place] [id number] [place] [id number] [facility] 2020-06-26 2020-06-26 Emergency [facility], [facility] [id number] Univers 03:50:00 06:45:00 Martha Cortez [id number] ity of [place] [id number] [facility] [id number] [address] 2020-05-24 2020-05-24 Emergency Heck, [facility] [id number] 06:40:47 10:54:00 Charanjit Cortez [id number] [place] [id number] [place] [id number] [facility] 2020-05-24 2020-05-24 Emergency [facility] [id number] [facility] 06:40:47 10:54:00 Charanjit Cortez [id number] i ty of [place] 4.2.7.2.686 [facility] [id number] [address] 2020-03-29 2020-03-29 Jamel Dunn [id number] 00:00:00 00:00:00 (Out) T [place] [id number] [facility] [id number] [id number] [facility] 2020-03-29 2020-03-29 Jamel Dunn [id number] Univers 00:00:00 00:00:00 (Out) T Ashleigh [id number] it y of [facility] 4.2.7.2.686 [place] [id number] [address] 2020-03-26 2020-03-26 Transition Sharee George [id number] 00:00:00 00:00:00 of Care Sherrell Grewal [id number] [place] [id number] [id number] [facility] 2020-03-26 2020-03-26 Transition Sharee George [id number] [facility] 00:00:00 00:00:00 of Care Sherrell Grewal [id number] it y of [place] [id number] [facility] 403 [place] 2020-03-22 2020-03-23 Emergency Sallie Eckert 1.2.840. 114 [id number] Univers 18:02:47 21:55:00 Jamel Flores [id number] ity of [facility] [id number] [place] [id number] [place] 525039 [place] 2020-03-22 2020-03-23 Outpatient X JAMEL FLORES [facility] [id number] Univers 18:02:47 21:55:00 ity of [facility] 2020-03-21 2020-03-21 Emergency [facility] [id number] Univers 15:02:08 17:16:00 Myles Sharon Cortez [id number] i ty of [place] [id number] [id number] [address] 2020-03-21 2020-03-21 Emergency X [facility] ERT [id number] Univers 15:02:08 17:16:00 MYLES ity of [facility] 2020-03-13 2020-03-13 Outpatient Raju_P [facility] MMG [id number] [place] 05:24:00 05:24:00 0428 [facility] 2020-03-08 2020-03-08 Transition Sharee Cool [id number] Univers 00:00:00 00:00:00 of Care Prema Grewal [id number] i ty of [id number] [phone] [facility] 403 [place] 2020-03-04 2020-03-07 [facility] Charanjit Heck [facility] 1.2.840.1 14 [id number] Univers 18:01:05 18:00:00 Encounter Sarah Harrell 350.1.13.10 ity [phone] [address] 2020-03-04 2020-03-07 Inpatient X JULIO CESAR [facility] [id number] Univers 18:01:05 18:00:00 [facility] 2020-03-03 2020-03-03 Transition Sharee Silva 1.2.840.114 [id number] Univers 00:00:00 00:00:00 of Care Isatu Grewal 350.1.13.10 it [place] of [place] [phone] [facility] [address] 2020-02-29 2020-03-02 [facility] Bobo Urrutia [facility] 1.2.840.11 4 [id number] Univers 16:53:09 12:18:00 Encounter Lulu Harris 350.1.13.10 [place] of [place] [phone] [facility] [address] 2020-02-29 2020-03-02 Inpatient X ARPITAUDREY [facility] [id number] Univers 16:53:09 12:18:00 [facility] 2020-02-15 2020-02-15 [facility] [id number] Univers 11:30:00 11:30:00 [facility] 2020-02-15 2020-02-15 [facility] 1.2.840.114 [id number] Univers 08:13:42 08:43:42 ne Visit Kathrin Cortez 350.1.13.10 [place] [facility] [phone] Ga dical nal 220 [facility] 2020-01-18 2020-01-18 Transition Sharee Harvey 1.2.840.114 [id number] Univers 00:00:00 00:00:00 of Care Ana M Grewal 350.1.13.10 it [place] of [id number] [address] 2020-01-15 2020-01-17 [facility] Charanjit Heck [facility] 1.2.840.1 14 [id number] Univers 22:33:37 16:58:00 Encounter Sarah Harrell 350.1.13.10 ity of [place] 4.2.7.2.686 [facility] [phone] [facility] [address] 2020-01-15 2020-01-17 [facility] [id number] Univers 22:33:37 16:58:00 BRIGIDAY ity of [facility] 2019-10-07 2019-10-07 [facility] [id number] 10:48:00 10:48:00 [facility] 2019-10-05 2019-10-05 [facility] [id number] 16:06:00 16:06:00 [facility] 2019-07-27 2019-07-27 [facility] 1.2.840.114 [id number] Univers 00:00:00 00:00:00 [facility] [place] 350.1.13.10 i ty [facility] 4.2.7.2.686 [facility] [phone] Ga dical [facility] [address] [facility] 2019-07-12 2019-07-12 [facility] [id number] 16:24:00 16:24:00 [facility] 2019-07-12 2019-07-12 Orders Doctor JONES 1.2.840.114 [id number] Univers 00:00:00 00:00:00 Only Unassigned, ASHLEIGH 350.1.13.10 ity of [place] [facility] 4.2.7.2.686 [place] [phone] [facility] [address] 2019-07-06 2019-07-06 [facility] [id number] 14:00:00 14:00:00 [facility] Clin[facility] Results Test Description Test Time Test Comments Results Result Comments Source SARS-CoV-2 (COVID-19) RNA [Presence] in Respiratory sp ecimen by 2021-12-20 07:04:48 ERI with probe detection Test Item Value Reference Range Interpretation Comme nts SARS-CoV-2 (COVID-19) RNA [Presence] in Respiratory Not detected No t-Detected specimen by ERI with probe detection (test code = 69586-8) 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 (test code = 31742-3) Whether the patient has symptoms related to condition of interest (test code = 09507-9) Patient was hospitalized because of this condition (test code = 47740-7) Whether the patient was admitted to intensive care unit (ICU) for condition of interest (test code = 74396-3) Whether patient resides in a congregate care setting (test code = 83622-9) POCT GLUCOSE (AUTOMATED)2021-11-02 22:57:12 Test Item Value Reference Range Interpretation Comments POCT GLU (test code = 7749337606) 224 mg/dL 70-110 H Lab Interpretation (test code = Abnormal 32438-6) [facility] LEAD ROUTINE [id number] 22:37:57 Test Item Value Reference Range Interpretation Comments Lab Interpretation (test code = Abnormal 88707-4) [facility]2021-11-02 17:43:02 Test Item Value Reference Range Interpretation Comments POCT GLU (test code = 2541585403) 264 mg/dL 70-110 H Lab Interpretation (test code = Abnormal 22399-4) [facility]TR[facility] [id number] 15:07:47 Test Item Value Reference Interpretation Comments Range TROPONIN I (test 0.064 ng/mL See_Comment H [Automated code = 5430761279) message] The system which generated this result [...] biotin. Lab Interpretation Abnormal (test code = 03490-5) [facility] Irving[facility]-TERMIN[facility] [id number] 15:04:26 Test Item Value Reference Range Interpretation Comments NT-proBNP (test code 800 pg/mL See_Comment H [Autom ated = 0760909876) message] The system which generated this result transmitted reference range : <=450. The reference range was not used to interpret this result as normal/abnormal . ALYSSA (test code = ALYSSA) Biotin has been reported to cause a negative bias, interpret results relative to patient's use of biotin. Lab Interpretation Abnormal (test code = 90813-2) [facility]2021-11-02 13:36:38 Test Item Value Reference Range Interpretation Comments POCT GLU (test code = 8592444083) 185 mg/dL 70-110 H Lab Interpretation (test code = Abnormal 40604-6) [facility] MET[facility]OLIC PANEL (NA, K, CL, CO2, GLUCOSE, BUN, CREATININE, CA)2021-11-02 10:26:43 Test Item Value Reference Range Interpretation Comments NA (test code = 136 mmol/L 135-145 0040245637) K (test code = 4.0 mmol/L 3.5-5.0 9854641845) CL (test code = 99 mmol/L 98-108 4207041326) CO2 TOTAL (test code = 27 mmol/L 23-31 2655389390) AGAP (test code = 2-16 2189150725) BUN (test code = 30 mg/dL 7-23 H 2411937892) GLUCOSE (test code = 165 mg/dL 70-110 H 4145081293) CREATININE (test code = 1.42 mg/dL 0.60-1.25 H 9911553427) CALCIUM (test code = 9.5 mg/dL 8.6-10.6 0867470869) eGFR (test code = mL/min/1.73m2 5410901606) ALYSSA (test code = ALYSSA) Association of [...] tests). Lab Interpretation Abnormal (test code = 71113-6) [facility] WITH [id number] 10:01:58 Test Item Value Reference Range Interpretation Comments WBC (test code = See_Comment [Automated 9261-2) message] The sy stem which generated this result transmitted reference range : 4.20 - 10.70 10*3/?L. The reference range was not used to interpret this result as normal/abnormal . RBC (test code = See_Comment L [Automated 722-8) message] The sy stem which generated this [...] RDW-SD (test code = 39.8 fL 38.5-51.6 95759-0) RDW-CV (test code = 11.5 % 12.1-15.4 L 788-0) PLT (test code = See_Comment [Automated 777-3) message] The sy stem which generated this result transmitted reference range : 150 - 328 10*3/ ?L. The reference r corey was not used to interpret this result as normal/abnormal . MPV (test code = 10.5 fL 9.8-13.0 89027-9) NRBC/100 WBC (test See_Comment [Automat ed code = 0035835226) message] The system which generated this result transmitted reference range : 0.0 - 10.0 /100 WBCs. The refer ence range was not u sed to interpret th is result as normal/abnormal . NRBC x10^3 (test code <0.01 See_Comment [Auto mated = 6550162047) message] The s ystem which generated this result transmitted reference range : 10*3/?L. The reference range was not used to interpret this result as normal/abnormal . GRAN MAT (NEUT) % 59.3 % (test code = 770-8) IMM GRAN % (test code 0.30 % = 8385860810) LYMPH % (test code = 25.0 % 736-9) MONO % (test code = 10.7 % 5905-5) EOS % (test code = 4.1 % 713-8) BASO % (test code = 0.6 % 706-2) GRAN MAT x10^3(ANC) 4.19 10*3/uL 1.99-6.95 (test code = 2720173828) IMM GRAN x10^3 (test <0.03 0.00-0.06 code = 5385898009) LYMPH x10^3 (test code 1.77 10*3/uL 1.09-3.23 = 731-0) MONO x10^3 (test code 0.76 10*3/uL 0.36-1.02 = 742-7) EOS x10^3 (test code = 0.29 10*3/uL 0.06-0.53 711-2) BASO x10^3 (test code 0.04 10*3/uL 0.01-0.09 = 704-7) Lab Interpretation Abnormal (test code = 66468-2) [facility] GLUCOSE (AUTOMATED)2021-11-02 01:29:56 Test Item Value Reference Range Interpretation Comments POCT GLU (test code = 1640374752) 167 mg/dL 70-110 H Lab Interpretation (test code = Abnormal 60236-9) [facility] GLUCOSE (AUTOMATED)2021-11-01 17:40:19 Test Item Value Reference Range Interpretation Comments POCT GLU (test code = 4375722610) 193 mg/dL 70-110 H Lab Interpretation (test code = Abnormal 68656-7) [facility] GLUCOSE (AUTOMATED)2021-11-01 13:44:28 Test Item Value Reference Range Interpretation Comments POCT GLU (test code = 1442636681) 200 mg/dL 70-110 H Lab Interpretation (test code = Abnormal 53776-0) [facility] GLUCOSE (AUTOMATED)2021-11-01 01:38:43 Test Item Value Reference Range Interpretation Comments POCT GLU (test code = 0816781262) 177 mg/dL 70-110 H Lab Interpretation (test code = Abnormal 24086-6) [facility] GLUCOSE (AUTOMATED)2021-10-31 22:39:43 Test Item Value Reference Range Interpretation Comments POCT GLU (test code = 7236428825) 174 mg/dL 70-110 H Lab Interpretation (test code = Abnormal 83464-7) [facility] GLUCOSE (AUTOMATED)2021-10-31 17:40:22 Test Item Value Reference Range Interpretation Comments POCT GLU (test code = 7185240674) 224 mg/dL 70-110 H Lab Interpretation (test code = Abnormal 40267-5) [id number] 17:14:58 Test Item Value Reference Interpretation Comments Range TROPONIN I (test 0.080 ng/mL See_Comment H [Automated code = 4216709072) message] The system which generated this result [...] biotin. Lab Interpretation Abnormal (test code = 96249-3) [facility] IrvingN-TERMINAL [id number] 15:14:03 Test Item Value Reference Range Interpretation Comments NT-proBNP (test code 474 pg/mL See_Comment H [Autom ated = 3368159405) message] The system which generated this result transmitted reference range : <=450. The reference range was not used to interpret this result as normal/abnormal . ALYSSA (test code = ALYSSA) Biotin has been reported to cause a negative bias, interpret results relative to patient's use of biotin. Lab Interpretation Abnormal (test code = 79059-5) [facility] IrvingLIPID PANEL (03558)(TOTAL CHOLESTEROL, TRIGLYCERIDES, HDL)2021-10-31 15:05:19 Test Item Value Reference Range Interpretation Comments CHOL (test code = 101 mg/dL 120-200 L 6007197479) HDL (test code = 36 mg/dL >40 L 8921142983) HDLC RATIO (test code = See_Comment [Au tomated message] 1374455245) The system [employer] generated this result transmit diamante reference range : <=5.0. The refe rence range was not u sed to interpret th is result as normal/abnormal . TRIG (test code = 143 mg/dL 30-170 1510679009) LDL CHOL (test code = 36 mg/dL See_Comment [Auto mated message] 22131-5) The system [employer] generated this result transmit diamante reference range : <=160. The refe rence range was not u sed to interpret th is result as normal/abnormal . VLDL (test code = 29 mg/dL 5-60 8117645061) Lab Interpretation (test Abnormal code = 45224-5) [facility])2021-10-31 13:44:00 Test Item Value Reference Range Interpretation Comments POCT GLU (test code = 2835879192) 150 mg/dL 70-110 H Lab Interpretation (test code = Abnormal 91033-8) [facility] with [id number] 11:13:14 Test Item Value Reference Range Interpretation [...] RDW-SD (test code = 39.9 fL 38.5-51.6 63647-9) RDW-CV (test code = 11.8 % 12.1-15.4 L 788-0) PLT (test code = See_Comment [Automated 777-3) message] The sy stem which generated this result transmitted reference range : 150 - 328 10*3/ ?L. The reference r corey was not used to interpret this result as normal/abnormal . MPV (test code = 11.0 fL 9.8-13.0 85875-2) NRBC/100 WBC (test See_Comment [Automat ed code = 3667030597) message] The system which generated this result transmitted reference range : 0.0 - 10.0 /100 WBCs. The refer ence range was not u sed to interpret th is result as normal/abnormal . NRBC x10^3 (test code <0.01 See_Comment [Auto mated = 1119154874) message] The s [email or web address] which generated this result transmitted reference range : 10*3/?L. The reference range was not used to interpret this result as normal/abnormal . GRAN MAT (NEUT) % 64.3 % (test code = 770-8) IMM GRAN % (test code 0.30 % = 7631071244) LYMPH % (test code = 21.7 % 736-9) MONO % (test code = 10.0 % 5905-5) EOS % (test code = 3.1 % 713-8) BASO % (test code = 0.6 % 706-2) GRAN MAT x10^3(ANC) 4.35 10*3/uL 1.99-6.95 (test code = 4348340621) IMM GRAN x10^3 (test <0.03 0.00-0.06 code = 6744179000) LYMPH x10^3 (test code 1.47 10*3/uL 1.09-3.23 = 731-0) MONO x10^3 (test code 0.68 10*3/uL 0.36-1.02 = 742-7) EOS x10^3 (test code = 0.21 10*3/uL 0.06-0.53 711-2) BASO x10^3 (test code 0.04 10*3/uL 0.01-0.09 = 704-7) Lab Interpretation Abnormal (test code = 70196-6) [facility] IrvingWENDY [id number] 11:09:53 Test Item Value Reference Interpretation Comments Range TROPONIN I (test 0.101 ng/mL See_Comment H [Automated code = 8794346284) message] The system which generated this result [...] biotin. Lab Interpretation Abnormal (test code = 88126-2) [facility] Metabolic Panel (NA, K, CL, CO2, GLUCOSE, BUN, CREATININE, CA)2021-10-31 10:59:31 Test Item Value Reference Range Interpretation Comments NA (test code = 139 mmol/L 135-145 7414571308) K (test code = 4.1 mmol/L 3.5-5.0 3906003796) CL (test code = 103 mmol/L 98-108 3030499013) CO2 TOTAL (test code = 28 mmol/L 23-31 7266001993) AGAP (test code = 2-16 7026322594) BUN (test code = 43 mg/dL 7-23 H 4121821934) GLUCOSE (test code = 165 mg/dL 70-110 H 4099094081) CREATININE (test code = 1.68 mg/dL 0.60-1.25 H 7707824814) CALCIUM (test code = 9.6 mg/dL 8.6-10.6 5730577957) eGFR (test code = mL/min/1.73m2 3641580885) ALYSSA (test code = ALYSSA) Association of [...] tests). Lab Interpretation Abnormal (test code = 61959-2) [facility] IrvingGlycosylated Hemoglobin (A1C)2021-10-31 09:13:40 Test Item Value Reference Range Interpretation Comments HGB A1C (test code = 6.8 % 4.0-5.7 H 4548-4) ALYSSA (test code = ALYSAS) Reference RangesNormal: <5.7%Prediabetes: 5.7 - 6.4%Diabetes: > 6.5% Lab Interpretation (test Abnormal code = 49909-8) [id number] 06:48:18 Test Item Value Reference Interpretation Comments Range TROPONIN I (test 0.082 ng/mL See_Comment H [Automated code = 4932772290) message] The system which generated this result [...] biotin. Lab Interpretation Abnormal (test code = 21816-1) [facility] [id number] 02:09:48 Test Item Value Reference Interpretation Comments Range TROPONIN I (test 0.067 ng/mL See_Comment H [Automated code = 4454557625) message] The system which generated this result [...] biotin. Lab Interpretation Abnormal (test code = 37007-1) [facility] IrvingN-TERMINAL [id number] 02:06:31 Test Item Value Reference Range Interpretation Comments NT-proBNP (test code 318 pg/mL See_Comment [Autom ated = 4588085262) message] The system which generated this result transmitted reference range : <=450. The reference range was not used to interpret this result as normal/abnormal . ALYSSA (test code = ALYSSA) Biotin has been reported to cause a negative bias, interpret results relative to patient's use of biotin. Lab Interpretation Normal (test code = 26990-6) [facility]. METABOLIC PANEL (63846)2021-10-31 01:58:28 Test Item Value Reference Range Interpretation Comments NA (test code = 137 mmol/L 135-145 3412766775) K (test code = 4.1 mmol/L 3.5-5.0 2331919881) CL (test code = 101 mmol/L 98-108 9201461287) CO2 TOTAL (test code = 26 mmol/L 23-31 0200509362) AGAP (test code = 2-16 9733754927) BUN (test code = 46 mg/dL 7-23 H 5544705156) GLUCOSE (test code = 213 mg/dL 70-110 H 3508046600) CREATININE (test code = 1.96 mg/dL 0.60-1.25 H 4899841048) TOTAL BILI (test code = 0.9 mg/dL 0.1-1.0 8714864928) CALCIUM (test code = 9.7 mg/dL 8.6-10.6 0035483303) T PROTEIN (test code = 7.0 g/dL 6.3-8.2 2392124879) ALBUMIN (test code = 4.3 g/dL 3.5-5.0 8428514543) ALK PHOS (test code = 58 U/L 34-122 7329789502) ALTv (test code = 20 U/L 5-50 1742-6) AST(SGOT) (test code = 27 U/L 13-40 0741661086) eGFR (test code = mL/min/1.73m2 8475405149) ALYSSA (test code = ALYSSA) Association of [...] tests). Lab Interpretation Abnormal (test code = 70996-7) [facility] IrvingLIPASE, [id number] 01:57:48 Test Item Value Reference Range Interpretation Comments LIPASE (test code = 0556228558) 330 U/L 0-220 H Lab Interpretation (test code = Abnormal 64697-3) [facility] IrvingaPTT2021-12-16 01:55:04 Test Item Value Reference Range Interpretation Comments APTT Patient (test See_Comment [Automat ed code = 3173-2) message] The system which generated this result transmitted reference range : 23 - 38 Seconds . The reference range was not used to interpr et this result as normal/abnormal . ALYSSA (test code = ALYSSA) The [facility] patient population mean normal value for aPTT is 30 seconds. Lab Interpretation Normal (test code = 53867-1) [facility] IrvingPROTHROMBIN TIME / [id number] 01:53:08 Test Item Value Reference Range Interpretation [...] tions. Lab Interpretation (test Normal code = 40902-1) [facility] IrvingCBC WITH [id number] 01:45:44 Test Item Value Reference Range Interpretation Comments WBC (test code = See_Comment [Automated 5190-2) message] The sy stem which generated this result transmitted reference range : 4.20 - 10.70 10*3/?L. The reference range was not used to interpret this result as normal/abnormal . RBC (test code = See_Comment L [Automated 099-8) message] The sy stem which generated this [...] RDW-SD (test code = 39.1 fL 38.5-51.6 89194-1) RDW-CV (test code = 11.6 % 12.1-15.4 L 788-0) PLT (test code = See_Comment [Automated 777-3) message] The sy stem which generated this result transmitted reference range : 150 - 328 10*3/ ?L. The reference r corey was not used to interpret this result as normal/abnormal . MPV (test code = 10.4 fL 9.8-13.0 61278-0) NRBC/100 WBC (test See_Comment [Automat ed code = 6711733316) message] The system which generated this result transmitted reference range : 0.0 - 10.0 /100 WBCs. The refer ence range was not u sed to interpret th is result as normal/abnormal . NRBC x10^3 (test code <0.01 See_Comment [Auto mated = 6805113236) message] The s ystem which generated this result transmitted reference range : 10*3/?L. The reference range was not used to interpret this result as normal/abnormal . GRAN MAT (NEUT) % 62.1 % (test code = 770-8) IMM GRAN % (test code 0.30 % = 4676136867) LYMPH % (test code = 23.4 % 736-9) MONO % (test code = 10.8 % 5905-5) EOS % (test code = 2.9 % 713-8) BASO % (test code = 0.5 % 706-2) GRAN MAT x10^3(ANC) 4.14 10*3/uL 1.99-6.95 (test code = 9865558539) IMM GRAN x10^3 (test <0.03 0.00-0.06 code = 7434339331) LYMPH x10^3 (test code 1.56 10*3/uL 1.09-3.23 = 731-0) MONO x10^3 (test code 0.72 10*3/uL 0.36-1.02 = 742-7) EOS x10^3 (test code = 0.19 10*3/uL 0.06-0.53 711-2) BASO x10^3 (test code 0.03 10*3/uL 0.01-0.09 = 704-7) Lab Interpretation Abnormal (test code = 90191-9) [facility] IrvingURINALYSIS2021-06-10 21:15:48 Test Item Value Reference Range Interpretation Comments APPEARANCE (test code = Clear Clear 0939851612) COLOR (test code = Yellow Yellow 3693126864) PH (test code = 4.8-8.0 5203682714) SP GRAVITY (test code = 1.003-1.030 2107947546) GLU U QUAL (test code = 50 mg/dL Normal A 3707071359) BLOOD (test code = Negative Negative INTERFERE NCE FROM 3075026039) ASCORBIC ACID M AY CAUSE FALSE NEG ATIVE RESULT KETONES (test code = Negative Negative 6263182505) PROTEIN (test code = Negative Negative 2887-8) UROBILIN (test code = Normal Normal 6577859414) BILIRUBIN (test code = Negative Negative 5619278640) NITRITE (test code = Negative Negative 9838157502) LEUK JESS (test code = Negative Negative 6147341604) RBC/HPF (test code = See_Comment [Autom ated message] 6507131247) The system [employer] generated this result transmitted ref erence range: 0 - 3 HP F. The reference range was not used to int erpret this result as normal/abnormal . WBC/HPF (test code = See_Comment [Autom ated message] 9340807846) The system [employer] generated this result transmitted ref erence range: 0 - 5 HP F. The reference range was not used to int erpret this result as normal/abnormal . BACTERIA (test code = Negative Negative 4055527497) SQ EPITH (test code = <1 See_Comment [Auto mated message] 6768860443) The system [employer] generated this result transmitted ref erence range: <=2 HPF. The reference range was not used to int erpret this result as normal/abnormal . HYAL CAST (test code = See_Comment [Aut omated message] 1378445546) The system [employer] generated this result transmitted ref erence range: <=2 LPF. The reference range was not used to int erpret this result as normal/abnormal . Lab Interpretation (test Abnormal code = 90978-7) [facility] IrvingXR LUMBAR SPINE 2 [id number] 20:30:53 Impression: Postoperative changes. Degenerative changes. No [...] acute fracture or dislocation identified. Atherosclerotic calcifications. Mdmb, Radiant Results Inft User -04/25/2021 3:31 PM [...] acute bony abnormality identified.End of Report.RL: 3901 [facility] FallsXR HIPS 2 VW [id number] 20:24:52Impression: Postoperative changes. Degenerative changes. No acute [...] clinicalconcern MRI is available.End of Report.RL: 3901 [facility] FallsBasic Metabolic Panel (NA, K, CL, CO2, GLUCOSE, BUN, CREATININE, CA)2020-05-24 14:15:00 Test Item Value Reference Range Interpretation Comments NA (test code = 139 mmol/L 135-145 0891465107) K (test code = 4.1 mmol/L 3.5-5 3923277527) CL (test code = 104 mmol/L 98-108 4996389818) CO2 TOTAL (test code = 26 mmol/L 23-31 4249806050) AGAP (test code = 2-16 8367917263) BUN (test code = 22 mg/dL 7-23 8426482061) GLUCOSE (test code = 203 mg/dL 70-110 H 5947008436) CREATININE (test code = 1.40 mg/dL 0.6-1.25 H 1807471652) CALCIUM (test code = 9.1 mg/dL 8.6-10.6 8433688779) eGFR Calculation mL/min/1.73m2 (Non-) (test code = 9798133151) eGFR Calculation mL/min/1.73m2 () (test code = 7366496011) ALYSSA (test code = ALYSSA) Association of [...] tests). Lab Interpretation Abnormal (test code = 32833-4) [facility] IrvingHepatic Function Panel (ALB, T.PRO, BILI T, BU/BC, ALT, AST, ALK PHOS)2020-05-24 13:54:00 Test Item Value Reference Range Interpretation Comments TOTAL BILI (test code = 5077010880) 0.9 mg/dL 0.1-1.1 BILI UNCON (test code = 9077710095) 1.0 mg/dL 0.1-1.1 BILI CONJ (test code = 8544903204) 0.0 mg/dL 0-0.3 T PROTEIN (test code = 6740592408) 7.0 g/dL 6.3-8.2 ALBUMIN (test code = 6093357871) 4.2 g/dL 3.5-5 ALK PHOS (test code = 3490145997) 49 U/L 34-122 ALTv (test code = 1742-6) 17 U/L 5-50 AST(SGOT) (test code = 8781203390) 25 U/L 13-40 Lab Interpretation (test code = Normal 10648-0) [facility] IrvingaPTT2020-07-09 13:32:00 Test Item Value Reference Range Interpretation Comments APTT Patient (test See_Comment [Automat ed code = 3173-2) message] The system which generated this result transmitted reference range : 23 - 38 Seconds . The reference range was not used to interpr et this result as normal/abnormal . ALYSSA (test code = ALYSSA) The [facility] patient population mean normal value for aPTT is 30 seconds. Lab Interpretation Normal (test code = 87734-4) [facility] IrvingProthrombin Time (PT) / [id number] 13:30:00 Test Item Value Reference Range Interpretation [...] tions. Lab Interpretation (test Normal code = 37138-5) [facility] IrvingCBC WITH [id number] 13:27:00 Test Item Value Reference Range Interpretation [...] RDW-SD (test code = 42.6 fL 38.5-51.6 77160-1) RDW-CV (test code = 12.3 % 12.1-15.4 788-0) PLT (test code = See_Comment [Automated 777-3) message] The sy stem which generated this result transmitted reference range : 150 - 328 10*3/ ?L. The reference r corey was not used to interpret this result as normal/abnormal . MPV (test code = 9.9 fL 9.8-13 25959-1) NRBC/100 WBC (test See_Comment [Automat ed code = 8046830544) message] The system which generated this result transmitted reference range : 0.0 - 10.0 /100 WBCs. The refer ence range was not u sed to interpret th is result as normal/abnormal . NRBC x10^3 (test code <0.01 See_Comment [Auto mated = 7346591394) message] The s ystem which generated this result transmitted reference range : 10*3/?L. The reference range was not used to interpret this result as normal/abnormal . GRAN MAT (NEUT) % 55.1 % (test code = 770-8) IMM GRAN % (test code 0.20 % = 5083374917) LYMPH % (test code = 28.8 % 736-9) MONO % (test code = 11.3 % 5905-5) EOS % (test code = 3.5 % 713-8) BASO % (test code = 1.1 % 706-2) GRAN MAT x10^3(ANC) 3.11 10*3/uL 1.99-6.95 (test code = 5466935095) IMM GRAN x10^3 (test <0.03 0-0.06 code = 9615469116) LYMPH x10^3 (test code 1.63 10*3/uL 1.09-3.23 = 731-0) MONO x10^3 (test code 0.64 10*3/uL 0.36-1.02 = 742-7) EOS x10^3 (test code = 0.20 10*3/uL 0.06-0.53 711-2) BASO x10^3 (test code 0.06 10*3/uL 0.01-0.09 = 704-7) Lab Interpretation Abnormal (test code = 68839-0) [facility] IrvingXR ANKLE 3+ VW [id number] 13:25:58HISTORY: ?Pain. FINDINGS: AP, lateral, oblique views [...] fracture or dislocation in left ankle.[facility] IrvingPOCT GLUCOSE (AUTOMATED)2020-03-23 22:34:00 Test Item Value Reference Range Interpretation Comments POCT GLU (test code = 8448994153) 173 mg/dL 70-110 H Lab Interpretation (test code = Abnormal 96507-3) [facility] GLUCOSE (AUTOMATED)2020-03-23 22:34:00 Test Item Value Reference Range Interpretation Comments POCT GLU (test code = 1357674912) 173 mg/dL 70-110 H Lab Interpretation (test code = Abnormal 42192-0) [facility] GLUCOSE (AUTOMATED)2020-03-23 18:12:00 Test Item Value Reference Range Interpretation Comments POCT GLU (test code = 165 mg/dL 70-110 H Notifi ed Provider [id number]) Lab Interpretation (test Abnormal code = 87152-4) [facility] GLUCOSE (AUTOMATED)2020-03-23 18:12:00 Test Item Value Reference Range Interpretation Comments POCT GLU (test code = 165 mg/dL 70-110 H Notifi ed Provider [id number]) Lab Interpretation (test Abnormal code = 75303-7) [facility] GLUCOSE (AUTOMATED)2020-03-23 15:04:00 Test Item Value Reference Range Interpretation Comments POCT GLU (test code = 114 mg/dL 70-110 H Notifi ed Provider [id number]) Lab Interpretation (test Abnormal code = 45291-5) [facility] GLUCOSE (AUTOMATED)2020-03-23 15:04:00 Test Item Value Reference Range Interpretation Comments POCT GLU (test code = 114 mg/dL 70-110 H Notifi ed Provider [id number]) Lab Interpretation (test Abnormal code = 47036-2) [facility] IrvingFERRITIN [id number] 13:23:00 Test Item Value Reference Range Interpretation Comments FERRITIN (test code = 139.0 ng/mL 18-464 8887220699) ALYSSA (test code = ALYSSA) Biotin has been reported to cause a negative bias, interpret results relative to patient's use of biotin. Lab Interpretation (test Normal code = 09566-9) [facility] IrvingFERRITIN [id number] 13:23:00 Test Item Value Reference Range Interpretation Comments FERRITIN (test code = 139.0 ng/mL 18-464 2151823348) ALYSSA (test code = ALYSSA) Biotin has been reported to cause a negative bias, interpret results relative to patient's use of biotin. Lab Interpretation (test Normal code = 41884-7) [facility] [id number] 12:53:00 Test Item Value Reference Range Interpretation Comments IRON (test code = 6986535027) 87 ug/dL 50-160 TIBC (test code = 2477576824) 385 ug/dL 250-410 % FE SAT (test code = 1129005393) 23 % 20-50 Lab Interpretation (test code = Normal 05414-5) [facility] [id number] 12:53:00 Test Item Value Reference Range Interpretation Comments IRON (test code = 8776478288) 87 ug/dL 50-160 TIBC (test code = 0663206511) 385 ug/dL 250-410 % FE SAT (test code = 4367320347) 23 % 20-50 Lab Interpretation (test code = Normal 78063-9) [place] [id number] 12:07:00 Test Item Value Reference Range Interpretation Comments APTT Patient (test code See_Comment [Au tomated message] = 3173-2) The system [employer] generated this result transmitted ref erence range: 26 - 36 Seconds. The reference range was not used to int erpret this result as normal/abnormal . Lab Interpretation (test Abnormal code = 66356-3) [facility] Test Item Value Reference Range Interpretation Comments APTT Patient (test code See_Comment [Au tomated message] = 3173-2) The system [employer] generated this result transmitted ref erence range: 26 - 36 Seconds. The reference range was not used to int erpret this result as normal/abnormal . Lab Interpretation (test Abnormal code = 78362-0) [facility] [id number] 11:57:00 Test Item Value Reference Range Interpretation Comments TROPONIN I (test 0.046 ng/mL See_Comment H [Automated code = 4931967450) message] The system which generated this result [...] ? Lab Interpretation Abnormal (test code = 25911-6) [facility] IrvingKATEJr [id number] 11:57:00 Test Item Value Reference Range Interpretation Comments TROPONIN I (test 0.046 ng/mL See_Comment H [Automated code = 2584999701) message] The system which generated this result [...] ? Lab Interpretation Abnormal (test code = 87226-2) [facility] (NA, K, CL, CO2, GLUCOSE, BUN, CREATININE, CA)2020-03-23 11:52:00 Test Item Value Reference Range Interpretation Comments NA (test code = 137 mmol/L 135-145 3507619896) K (test code = 4.1 mmol/L 3.5-5 2587312431) CL (test code = 102 mmol/L 98-108 2722769993) CO2 TOTAL (test code = 26 mmol/L 23-31 0500225434) AGAP (test code = 2-16 4654886171) BUN (test code = 18 mg/dL 7-23 6268344417) GLUCOSE (test code = 119 mg/dL 70-110 H 8898211574) CREATININE (test code = 1.14 mg/dL 0.6-1.25 2909547183) CALCIUM (test code = 9.1 mg/dL 8.6-10.6 3186377147) eGFR Calculation mL/min/1.73m2 (Non-) (test code = 4558711514) eGFR Calculation mL/min/1.73m2 () (test code = 5940111121) ALYSSA (test code = ALYSSA) Association of [...] tests). Lab Interpretation Abnormal (test code = 95712-7) [facility]MAG[facility]IUM2020-05-08 11:52:00 Test Item Value Reference Range Interpretation Comments MAGNESIUM (test code = 4954276897) 2.2 mg/dL 1.7-2.4 Lab Interpretation (test code = Normal 42952-8) [facility] METABOLIC PANEL (NA, K, CL, CO2, GLUCOSE, BUN, CREATININE, CA)2020-03-23 11:52:00 Test Item Value Reference Range Interpretation Comments NA (test code = 137 mmol/L 135-145 4558035706) K (test code = 4.1 mmol/L 3.5-5 0515834359) CL (test code = 102 mmol/L 98-108 5288905097) CO2 TOTAL (test code = 26 mmol/L 23-31 7162985256) AGAP (test code = 2-16 7187229351) BUN (test code = 18 mg/dL 7-23 7745579007) GLUCOSE (test code = 119 mg/dL 70-110 H 1472027106) CREATININE (test code = 1.14 mg/dL 0.6-1.25 0626142671) CALCIUM (test code = 9.1 mg/dL 8.6-10.6 4744270640) eGFR Calculation mL/min/1.73m2 (Non-) (test code = 0134916336) eGFR Calculation mL/min/1.73m2 () (test code = 1516453858) ALYSSA (test code = ALYSSA) Association of [...] tests). Lab Interpretation Abnormal (test code = 91680-6) [facility]MAG[facility]2020-05-08 11:52:00 Test Item Value Reference Range Interpretation Comments MAGNESIUM (test code = 7141702580) 2.2 mg/dL 1.7-2.4 Lab Interpretation (test code = Normal 90458-7) [facility] IrvingProthrombin Time (PT) / [id number] 11:36:00 Test Item Value Reference Range Interpretation Comments PROTIME PATIENT (test See_Comment [Auto mated message] code = 5964-2) The system [employer] generated this result transmitted ref erence range: 10.1 - 1 2.6 Seconds. The re ference range was not u sed to interpret this result as normal/abnor mal. INR (test code = 6301-6) Nor mal INR <1.1; Warfarin Therap eutic range 2.0 to 3. 0 or 2.5 to 3.5, dep ending upon the indica tions. Lab Interpretation (test Normal code = 97552-9) [facility] IrvingProthrombin Time (PT) / [id number] 11:36:00 Test Item Value Reference Range Interpretation [...] tions. Lab Interpretation (test Normal code = 58448-9) [facility] [id number] 06:38:00 Test Item Value Reference Range Interpretation Comments TROPONIN I (test 0.045 ng/mL See_Comment H [Automated code = 3209485181) message] The system which generated this result [...] ? Lab Interpretation Abnormal (test code = 82035-9) [facility] [id number] 06:38:00 Test Item Value Reference Range Interpretation Comments TROPONIN I (test 0.045 ng/mL See_Comment H [Automated code = 2419963761) message] The system which generated this result [...] ? Lab Interpretation Abnormal (test code = 78362-7) [facility] (NA, K, CL, CO2, GLUCOSE, BUN, CREATININE, CA)2020-03-23 06:29:00 Test Item Value Reference Range Interpretation Comments NA (test code = 137 mmol/L 135-145 9702458020) K (test code = 3.6 mmol/L 3.5-5 2832796776) CL (test code = 101 mmol/L 98-108 7420237037) CO2 TOTAL (test code = 27 mmol/L 23-31 7506500716) AGAP (test code = 2-16 6543259586) BUN (test code = 19 mg/dL 7-23 5759520484) GLUCOSE (test code = 153 mg/dL 70-110 H 6850264493) CREATININE (test code = 1.22 mg/dL 0.6-1.25 8092093863) CALCIUM (test code = 8.9 mg/dL 8.6-10.6 0800962814) eGFR Calculation mL/min/1.73m2 (Non-) (test code = 9155624296) eGFR Calculation mL/min/1.73m2 () (test code = 0468994318) ALYSSA (test code = ALYSSA) Association of [...] tests). Lab Interpretation Abnormal (test code = 27334-6) [facility]MAG[facility]2020-[facility]-08 06:29:00 Test Item Value Reference Range Interpretation Comments MAGNESIUM (test code = 2966999930) 1.7 mg/dL 1.7-2.4 Lab Interpretation (test code = Normal 98341-4) [facility] IrvingLIPID PANEL (27327)(TOTAL CHOLESTEROL, TRIGLYCERIDES, HDL)2020-03-23 06:29:00 Test Item Value Reference Range Interpretation Comments CHOL (test code = 106 mg/dL 120-200 L 7047048853) HDL (test code = 46 mg/dL >40 2501184296) HDLC RATIO (test code = See_Comment [Au tomated message] 0973905603) The system [employer] generated this result transmit diamante reference range : <=5.0. The refe rence range was not u sed to interpret th is result as normal/abnormal . TRIG (test code = 74 mg/dL 30-170 7318140669) LDL CHOL (test code = 45 mg/dL See_Comment [Auto mated message] 12671-5) The system [employer] generated this result transmit diamante reference range : <=160. The refe rence range was not u sed to interpret th is result as normal/abnormal . VLDL (test code = 15 mg/dL 5-60 0776586486) Lab Interpretation (test Abnormal code = 12912-8) [facility] METABOLIC PANEL (NA, K, CL, CO2, GLUCOSE, BUN, CREATININE, CA)2020-03-23 06:29:00 Test Item Value Reference Range Interpretation Comments NA (test code = 137 mmol/L 135-145 1989895489) K (test code = 3.6 mmol/L 3.5-5 8622018323) CL (test code = 101 mmol/L 98-108 5836327578) CO2 TOTAL (test code = 27 mmol/L 23-31 3819038121) AGAP (test code = 2-16 0594818576) BUN (test code = 19 mg/dL 7-23 4171416639) GLUCOSE (test code = 153 mg/dL 70-110 H 4247944090) CREATININE (test code = 1.22 mg/dL 0.6-1.25 9641636797) CALCIUM (test code = 8.9 mg/dL 8.6-10.6 9254387504) eGFR Calculation mL/min/1.73m2 (Non-) (test code = 6768600015) eGFR Calculation mL/min/1.73m2 () (test code = 4414425187) ALYSSA (test code = ALYSSA) Association of [...] tests). Lab Interpretation Abnormal (test code = 59505-5) [facility]2020-[facility]-08 06:29:00 Test Item Value Reference Range Interpretation Comments MAGNESIUM (test code = 4230134855) 1.7 mg/dL 1.7-2.4 Lab Interpretation (test code = Normal 19474-8) [facility] IrvingLIPID PANEL (33626)(TOTAL CHOLESTEROL, TRIGLYCERIDES, HDL)2020-03-23 06:29:00 Test Item Value Reference Range Interpretation Comments CHOL (test code = 106 mg/dL 120-200 L 8291450794) HDL (test code = 46 mg/dL >40 4943149217) HDLC RATIO (test code = See_Comment [Au tomated message] 2358408663) The system [employer] generated this result transmit diamante reference range : <=5.0. The refe rence range was not u sed to interpret th is result as normal/abnormal . TRIG (test code = 74 mg/dL 30-170 6620879078) LDL CHOL (test code = 45 mg/dL See_Comment [Auto mated message] 57721-0) The system [employer] generated this result transmit diamante reference range : <=160. The refe rence range was not u sed to interpret th is result as normal/abnormal . VLDL (test code = 15 mg/dL 5-60 5024826538) Lab Interpretation (test Abnormal code = 16935-8) [facility] IrvingaPTT2020-05-08 03:18:00 Test Item Value Reference Range Interpretation Comments APTT Patient (test code = See_Comment [ Automated message] 3173-2) The system [employer] generated this result transmitted ref erence range: 26 - 36 Seconds. The re ference range was not u sed to interpret this result as normal/abnor mal. Lab Interpretation (test Normal code = 64860-7) [facility] Test Item Value Reference Range Interpretation Comments APTT Patient (test code = See_Comment [ Automated message] 3173-2) The system [employer] generated this result transmitted ref erence range: 26 - 36 Seconds. The re ference range was not u sed to interpret this result as normal/abnor mal. Lab Interpretation (test Normal code = 65457-3) [facility] IrvingPROTHROMBIN TIME / [id number] 03:07:00 Test Item Value Reference Range Interpretation Comments PROTIME PATIENT (test See_Comment [Auto mated message] code = 5964-2) The system [employer] generated this result transmitted ref erence range: 10.1 - 1 2.6 Seconds. The re ference range was not u sed to interpret this result as normal/abnor mal. INR (test code = 6301-6) Nor mal INR <1.1; Warfarin Therap eutic range 2.0 to 3. 0 or 2.5 to 3.5, dep ending upon the indica tions. Lab Interpretation (test Normal code = 11886-3) [facility] IrvingPROTHROMBIN TIME / [id number] 03:07:00 Test Item Value Reference Range Interpretation Comments PROTIME PATIENT (test See_Comment [Auto mated message] code = 5964-2) The system [employer] generated this result transmitted ref erence range: 10.1 - 1 2.6 Seconds. The re ference range was not u sed to interpret this result as normal/abnor mal. INR (test code = 6301-6) Nor mal INR <1.1; Warfarin Therap eutic range 2.0 to 3. 0 or 2.5 to 3.5, dep ending upon the indica tions. Lab Interpretation (test Normal code = 96221-9) [facility]XR CHEST 2 [id number] 02:23:32 No acute cardiopulmonary process. Preliminary Report [...] study and agree with the abovereport.[facility] CHEST 2 [id number] 02:23:32 No acute cardiopulmonary process. Preliminary Report [...] reviewed this study and agree with the [facility]report.[facility] BranchCORON[facility]IRUS [facility]-19 [id number] 01:23:00 Test Item Value Reference Range Interpretation Comments SARS-CoV-2 (test code = Not Detected Not Detected 75973-9) ALYSSA (test code = ALYSSA) ID NOW COVID-19 Assay is an isothermal nucleic acid amplification test intended for the qualitative detection of nucleic acid from SARS-CoV-2 viral RNA in nasopharyngeal (CREAM RIPENER) specimens. It is used under Emergency Use [...] indicated. Lab Interpretation Normal (test code = 68070-8) [facility] IrvingCORONAVIRUS COVID-19 [id number] 01:23:00 Test Item Value Reference Range Interpretation Comments SARS-CoV-2 (test code = Not Detected Not Detected 05546-7) ALYSSA (test code = ALYSSA) ID NOW COVID-19 Assay is an isothermal nucleic acid amplification test intended for the qualitative detection of nucleic acid from SARS-CoV-2 viral RNA in nasopharyngeal (CREAM RIPENER) specimens. It is used under Emergency Use [...] indicated. Lab Interpretation Normal (test code = 00702-5) [facility] IrvingN-TERMINAL [id number] 00:12:00 Test Item Value Reference Range Interpretation Comments NT-proBNP (test code 585 pg/mL See_Comment H [Autom ated = 3388511549) message] The system which generated this result transmitted reference range : <=450. The reference range was not used to interpret this result as normal/abnormal . ALYSSA (test code = ALYSSA) Biotin has been reported to cause a negative bias, interpret results relative to patient's use of biotin. Lab Interpretation Abnormal (test code = 07051-4) [facility] IrvingTROPONIN [id number] 00:12:00 Test Item Value Reference Range Interpretation Comments TROPONIN I (test 0.030 ng/mL See_Comment [Automated code = 2050774556) message] The system which generated this result [...] ? Lab Interpretation Normal (test code = 24189-1) [facility] IrvingN-TERMINAL [id number] 00:12:00 Test Item Value Reference Range Interpretation Comments NT-proBNP (test code 585 pg/mL See_Comment H [Autom ated = 2460690753) message] The system which generated this result transmitted reference range : <=450. The reference range was not used to interpret this result as normal/abnormal . ALYSSA (test code = ALYSSA) Biotin has been reported to cause a negative bias, interpret results relative to patient's use of biotin. Lab Interpretation Abnormal (test code = 71869-6) [facility] IrvingTROPONIN [id number] 00:12:00 Test Item Value Reference Range Interpretation Comments TROPONIN I (test 0.030 ng/mL See_Comment [Automated code = 0695945153) message] The system which generated this result [...] ? Lab Interpretation Normal (test code = 79921-1) [facility]. METABOLIC PANEL (71426)2020-03-23 00:03:00 Test Item Value Reference Range Interpretation Comments NA (test code = 138 mmol/L 135-145 1393751962) K (test code = 4.1 mmol/L 3.5-5 8308980559) CL (test code = 103 mmol/L 98-108 2265451968) CO2 TOTAL (test code = 26 mmol/L 23-31 7598400721) AGAP (test code = 2-16 3534790916) BUN (test code = 18 mg/dL 7-23 8293762657) GLUCOSE (test code = 157 mg/dL 70-110 H 1761113531) CREATININE (test code = 1.19 mg/dL 0.6-1.25 7312819687) TOTAL BILI (test code = 1.1 mg/dL 0.1-1.7 2034542629) CALCIUM (test code = 9.2 mg/dL 8.6-10.6 0091108737) T PROTEIN (test code = 6.8 g/dL 6.3-8.2 8900075653) ALBUMIN (test code = 4.0 g/dL 3.5-5 3193613158) ALK PHOS (test code = 51 U/L 34-122 3881036203) ALTv (test code = 16 U/L 5-50 1742-6) AST(SGOT) (test code = 23 U/L 13-40 0361819734) eGFR Calculation mL/min/1.73m2 (Non-) (test code = 2004045972) eGFR Calculation mL/min/1.73m2 () (test code = 0256824375) ALYSSA (test code = ALYSSA) Association of [...] tests). Lab Interpretation Abnormal (test code = 98281-7) [facility]. METABOLIC PANEL (20948)2020-03-23 00:03:00 Test Item Value Reference Range Interpretation Comments NA (test code = 138 mmol/L 135-145 9237709949) K (test code = 4.1 mmol/L 3.5-5 8679097124) CL (test code = 103 mmol/L 98-108 0244819272) CO2 TOTAL (test code = 26 mmol/L 23-31 8054156581) AGAP (test code = 2-16 9806781819) BUN (test code = 18 mg/dL 7-23 0537270787) GLUCOSE (test code = 157 mg/dL 70-110 H 3579885745) CREATININE (test code = 1.19 mg/dL 0.6-1.25 8442549117) TOTAL BILI (test code = 1.1 mg/dL 0.1-1.6 5422491043) CALCIUM (test code = 9.2 mg/dL 8.6-10.6 1941288661) T PROTEIN (test code = 6.8 g/dL 6.3-8.2 6654957181) ALBUMIN (test code = 4.0 g/dL 3.5-5 3564148165) ALK PHOS (test code = 51 U/L 34-122 4957861407) ALTv (test code = 16 U/L 5-50 1742-6) AST(SGOT) (test code = 23 U/L 13-40 6313804825) eGFR Calculation mL/min/1.73m2 (Non-) (test code = 1671403729) eGFR Calculation mL/min/1.73m2 () (test code = 4323276356) ALYSSA (test code = ALYSSA) Association of [...] tests). Lab Interpretation Abnormal (test code = 51318-8) [facility] WITH [id number] 23:57:00 Test Item Value Reference Range Interpretation Comments WBC (test code = See_Comment [Automated 4107-2) message] The sy stem which generated this result transmitted reference range : 4.20 - 10.70 10*3/?L. The reference range was not used to interpret this result as normal/abnormal . RBC (test code = See_Comment L [Automated 243-8) message] The sy stem which generated this [...] RDW-SD (test code = 49.6 fL 38.5-51.6 65074-1) RDW-CV (test code = 14.6 % 12.1-15.4 788-0) PLT (test code = See_Comment L [Automated 777-3) message] The sy stem which generated this result transmitted reference range : 150 - 328 10*3/ ?L. The reference r corey was not used to interpret this result as normal/abnormal . MPV (test code = 9.9 fL 9.8-13 61230-2) NRBC/100 WBC (test See_Comment [Automat ed code = 9830141836) message] The system which generated this result transmitted reference range : 0.0 - 10.0 /100 WBCs. The refer ence range was not u sed to interpret th is result as normal/abnormal . NRBC x10^3 (test code <0.01 See_Comment [Auto mated = 5883991962) message] The s ystem which generated this result transmitted reference range : 10*3/?L. The reference range was not used to interpret this result as normal/abnormal . GRAN MAT (NEUT) % 55.3 % (test code = 770-8) IMM GRAN % (test code 0.20 % = 4636453326) LYMPH % (test code = 28.3 % 736-9) MONO % (test code = 12.6 % 5905-5) EOS % (test code = 3.1 % 713-8) BASO % (test code = 0.5 % 706-2) GRAN MAT x10^3(ANC) 3.20 10*3/uL 1.99-6.95 (test code = 0127773879) IMM GRAN x10^3 (test <0.03 0-0.06 code = 4591608624) LYMPH x10^3 (test code 1.64 10*3/uL 1.09-3.23 = 731-0) MONO x10^3 (test code 0.73 10*3/uL 0.36-1.02 = 742-7) EOS x10^3 (test code = 0.18 10*3/uL 0.06-0.53 711-2) BASO x10^3 (test code 0.03 10*3/uL 0.01-0.09 = 704-7) Lab Interpretation Abnormal (test code = 82576-3) [facility] WITH [id number] 23:57:00 Test Item Value Reference Range Interpretation [...] RDW-SD (test code = 49.6 fL 38.5-51.6 67742-1) RDW-CV (test code = 14.6 % 12.1-15.4 788-0) PLT (test code = See_Comment L [Automated 777-3) message] The sy stem which generated this result transmitted reference range : 150 - 328 10*3/ ?L. The reference r corey was not used to interpret this result as normal/abnormal . MPV (test code = 9.9 fL 9.8-13 79988-5) NRBC/100 WBC (test See_Comment [Automat ed code = 2086297490) message] The system which generated this result transmitted reference range : 0.0 - 10.0 /100 WBCs. The refer ence range was not u sed to interpret th is result as normal/abnormal . NRBC x10^3 (test code <0.01 See_Comment [Auto mated = 0858080148) message] The s ystem which generated this result transmitted reference range : 10*3/?L. The reference range was not used to interpret this result as normal/abnormal . GRAN MAT (NEUT) % 55.3 % (test code = 770-8) IMM GRAN % (test code 0.20 % = 8458957586) LYMPH % (test code = 28.3 % 736-9) MONO % (test code = 12.6 % 5905-5) EOS % (test code = 3.1 % 713-8) BASO % (test code = 0.5 % 706-2) GRAN MAT x10^3(ANC) 3.20 10*3/uL 1.99-6.95 (test code = 7448029187) IMM GRAN x10^3 (test <0.03 0-0.06 code = 2008811555) LYMPH x10^3 (test code 1.64 10*3/uL 1.09-3.23 = 731-0) MONO x10^3 (test code 0.73 10*3/uL 0.36-1.02 = 742-7) EOS x10^3 (test code = 0.18 10*3/uL 0.06-0.53 711-2) BASO x10^3 (test code 0.03 10*3/uL 0.01-0.09 = 704-7) Lab Interpretation Abnormal (test code = 85670-3) [facility]19 [id number] 21:48:00 Test Item Value Reference Range Interpretation Comments SARS-CoV-2 (test code = Not Detected Not Detected 56365-3) ALYSSA (test code = ALYSSA) ID NOW COVID-19 Assay is an isothermal nucleic acid amplification test intended for the qualitative detection of nucleic acid from SARS-CoV-2 viral RNA in nasopharyngeal (CREAM RIPENER) specimens. It is used under Emergency Use [...] indicated. Lab Interpretation Normal (test code = 41498-0) [facility] IrvingTroponin [id number] 21:44:00 Test Item Value Reference Range Interpretation Comments TROPONIN I (test 0.027 ng/mL See_Comment [Automated code = 4981213284) message] The system which generated this result [...] ? Lab Interpretation Normal (test code = 41413-4) [facility] IrvingProthrombin Time (PT) / [id number] 21:41:00 Test Item Value Reference Range Interpretation [...] tions. Lab Interpretation (test Normal code = 73049-9) [facility] IrvingN-TERMINAL [id number] 21:39:00 Test Item Value Reference Range Interpretation Comments NT-proBNP (test code 663 pg/mL See_Comment H [Autom ated = 5755913298) message] The system which generated this result transmitted reference range : <=450. The reference range was not used to interpret this result as normal/abnormal . ALYSSA (test code = ALYSSA) Biotin has been reported to cause a negative bias, interpret results relative to patient's use of biotin. Lab Interpretation Abnormal (test code = 12929-0) [facility] IrvingCOMP. METABOLIC PANEL (89325)2020-03-21 21:37:00 Test Item Value Reference Range Interpretation Comments NA (test code = 139 mmol/L 135-145 5445339052) K (test code = 4.1 mmol/L 3.5-5 8047593899) CL (test code = 102 mmol/L 98-108 9292123804) CO2 TOTAL (test code = 29 mmol/L 23-31 7323840248) AGAP (test code = 2-16 4118411621) BUN (test code = 18 mg/dL 7-23 6187950689) GLUCOSE (test code = 277 mg/dL 70-110 H 6582105650) CREATININE (test code = 1.23 mg/dL 0.6-1.25 4949809596) TOTAL BILI (test code = 1.3 mg/dL 0.1-1.1 H 8645692237) CALCIUM (test code = 9.8 mg/dL 8.6-10.6 8102342655) T PROTEIN (test code = 7.0 g/dL 6.3-8.2 6301144215) ALBUMIN (test code = 4.2 g/dL 3.5-5 3557060585) ALK PHOS (test code = 50 U/L 34-122 6934672212) ALTv (test code = 15 U/L 5-50 1742-6) AST(SGOT) (test code = 22 U/L 13-40 1700101627) eGFR Calculation mL/min/1.73m2 (Non-) (test code = 4071789710) eGFR Calculation mL/min/1.73m2 () (test code = 7177982525) ALYSSA (test code = ALYSSA) Association of [...] tests). Lab Interpretation Abnormal (test code = 17297-3) [facility] IrvingLipase [id number] 21:37:00 Test Item Value Reference Range Interpretation Comments LIPASE (test code = 4960067982) 161 U/L 0-220 Lab Interpretation (test code = Normal 65762-4) [facility] 1 [id number] 20:46:31HISTORY: Chest pain. TECHNIQUE: Portable AP view [...] thoracolumbar scoliosis noted.CONCLUSIONS: Mild cardiomegaly. [facility] IrvingLaokic Acid Whole [id number] 20:43:00 Test Item Value Reference Range Interpretation Comments LACTIC ACID (test code = 1.91 mmol/L 0.3-2.6 3736709404) [facility] GLUCOSE (AUTOMATED)2020-03-07 20:58:00 Test Item Value Reference Range Interpretation Comments POCT GLU (test code = 4145801162) 216 mg/dL 70-110 H Lab Interpretation (test code = Abnormal 80483-1) [facility] GLUCOSE (AUTOMATED)2020-03-07 16:00:00 Test Item Value Reference Range Interpretation Comments POCT GLU (test code = 1614671830) 168 mg/dL 70-110 H Lab Interpretation (test code = Abnormal 20176-7) [facility] GLUCOSE (AUTOMATED)2020-03-07 13:07:00 Test Item Value Reference Range Interpretation Comments POCT GLU (test code = 5760158162) 148 mg/dL 70-110 H Lab Interpretation (test code = Abnormal 92949-7) [facility] IrvingTROPONIN [id number] 11:27:00 Test Item Value Reference Range Interpretation Comments TROPONIN I (test 0.051 ng/mL See_Comment H [Automated code = 2356334986) message] The system which generated this result [...] ? Lab Interpretation Abnormal (test code = 27858-4) [facility] IrvingN-TERMINAL [id number] 11:24:00 Test Item Value Reference Range Interpretation Comments NT-proBNP (test code 336 pg/mL See_Comment [Autom ated = 4080019872) message] The system which generated this result transmitted reference range : <=450. The reference range was not used to interpret this result as normal/abnormal . ALYSSA (test code = ALYSSA) Biotin has been reported to cause a negative bias, interpret results relative to patient's use of biotin. Lab Interpretation Normal (test code = 48013-7) [facility] IrvingBasi Metabolic Panel (NA, K, CL, CO2, GLUCOSE, BUN, CREATININE, CA)2020-03-07 11:14:00 Test Item Value Reference Range Interpretation Comments NA (test code = 138 mmol/L 135-145 2445723962) K (test code = 3.8 mmol/L 3.5-5 1007691418) CL (test code = 97 mmol/L 98-108 L 4707148958) CO2 TOTAL (test code = 30 mmol/L 23-31 8645445334) AGAP (test code = 2-16 3046563836) BUN (test code = 36 mg/dL 7-23 H 3623100869) GLUCOSE (test code = 140 mg/dL 70-110 H 8569259047) CREATININE (test code = 1.50 mg/dL 0.6-1.25 H 6383296895) CALCIUM (test code = 10.0 mg/dL 8.6-10.6 9947389509) eGFR Calculation mL/min/1.73m2 (Non-) (test code = 2115513309) eGFR Calculation mL/min/1.73m2 () (test code = 6807493964) ALYSSA (test code = ALYSSA) Association of [...] tests). Lab Interpretation Abnormal (test code = 40483-4) [facility] [id number] 11:14:00 Test Item Value Reference Range Interpretation Comments URIC ACID (test code = 4530735642) 5.4 mg/dL 3.6-8 Lab Interpretation (test code = Normal 12019-2) [facility] WITH [id number] 10:53:00 Test Item Value Reference Range Interpretation [...] RDW-SD (test code = 45.1 fL 38.5-51.6 76146-9) RDW-CV (test code = 14.2 % 12.1-15.4 788-0) PLT (test code = See_Comment [Automated 777-3) message] The sy stem which generated this result transmitted reference range : 150 - 328 10*3/ ?L. The reference r corey was not used to interpret this result as normal/abnormal . MPV (test code = 9.8 fL 9.8-13 21836-1) NRBC/100 WBC (test See_Comment [Automat ed code = 5814502286) message] The system which generated this result transmitted reference range : 0.0 - 10.0 /100 WBCs. The refer ence range was not u sed to interpret th is result as normal/abnormal . NRBC x10^3 (test code <0.01 See_Comment [Auto mated = 4540876765) message] The s ystem which generated this result transmitted reference range : 10*3/?L. The reference range was not used to interpret this result as normal/abnormal . GRAN MAT (NEUT) % 51.0 % (test code = 770-8) IMM GRAN % (test code 0.50 % = 1859590895) LYMPH % (test code = 32.0 % 736-9) MONO % (test code = 11.3 % 5905-5) EOS % (test code = 4.3 % 713-8) BASO % (test code = 0.9 % 706-2) GRAN MAT x10^3(ANC) 2.85 10*3/uL 1.99-6.95 (test code = 8579914642) IMM GRAN x10^3 (test 0.03 10*3/uL 0-0.06 code = 9245633271) LYMPH x10^3 (test code 1.79 10*3/uL 1.09-3.23 = 731-0) MONO x10^3 (test code 0.63 10*3/uL 0.36-1.02 = 742-7) EOS x10^3 (test code = 0.24 10*3/uL 0.06-0.53 711-2) BASO x10^3 (test code 0.05 10*3/uL 0.01-0.09 = 704-7) Lab Interpretation Abnormal (test code = 00254-6) [facility] GLUCOSE (AUTOMATED)2020-03-06 22:46:00 Test Item Value Reference Range Interpretation Comments POCT GLU (test code = 8275032648) 209 mg/dL 70-110 H Lab Interpretation (test code = Abnormal 61623-4) [facility] GLUCOSE (AUTOMATED)2020-03-06 16:23:00 Test Item Value Reference Range Interpretation Comments POCT GLU (test code = 0341709418) 254 mg/dL 70-110 H Lab Interpretation (test code = Abnormal 86890-5) [facility] GLUCOSE (AUTOMATED)2020-03-06 12:51:00 Test Item Value Reference Range Interpretation Comments POCT GLU (test code = 7489308806) 126 mg/dL 70-110 H Lab Interpretation (test code = Abnormal 72029-2) [facility] IrvingTROPONIN [id number] 10:16:00 Test Item Value Reference Range Interpretation Comments TROPONIN I (test 0.056 ng/mL See_Comment H [Automated code = 6973837121) message] The system which generated this result [...] ? Lab Interpretation Abnormal (test code = 60480-9) [facility] (NA, K, CL, CO2, GLUCOSE, BUN, CREATININE, CA)2020-03-06 10:13:00 Test Item Value Reference Range Interpretation Comments NA (test code = 136 mmol/L 135-145 3941964169) K (test code = 4.1 mmol/L 3.5-5 7243750253) CL (test code = 95 mmol/L 98-108 L 2252001361) CO2 TOTAL (test code = 30 mmol/L 23-31 7215390619) AGAP (test code = 2-16 5904183268) BUN (test code = 35 mg/dL 7-23 H 8758036943) GLUCOSE (test code = 174 mg/dL 70-110 H 1411468344) CREATININE (test code = 1.67 mg/dL 0.6-1.25 H 3311598320) CALCIUM (test code = 9.7 mg/dL 8.6-10.6 5386135846) eGFR Calculation mL/min/1.73m2 (Non-) (test code = 0385055365) eGFR Calculation mL/min/1.73m2 () (test code = 4852294068) ALYSSA (test code = ALYSSA) Association of [...] tests). Lab Interpretation Abnormal (test code = 00075-8) [facility] WITH [id number] 09:16:00 Test Item Value Reference Range Interpretation Comments WBC (test code = See_Comment [Automated 3393-2) message] The sy stem which generated this result transmitted reference range : 4.20 - 10.70 10*3/?L. The reference range was not used to interpret this result as normal/abnormal . RBC (test code = See_Comment L [Automated 769-8) message] The sy stem which generated this [...] RDW-SD (test code = 45.6 fL 38.5-51.6 96864-2) RDW-CV (test code = 14.3 % 12.1-15.4 788-0) PLT (test code = See_Comment [Automated 777-3) message] The sy stem which generated this result transmitted reference range : 150 - 328 10*3/ ?L. The reference r corey was not used to interpret this result as normal/abnormal . MPV (test code = 9.8 fL 9.8-13 03240-8) NRBC/100 WBC (test See_Comment [Automat ed code = 6488916187) message] The system which generated this result transmitted reference range : 0.0 - 10.0 /100 WBCs. The refer ence range was not u sed to interpret th is result as normal/abnormal . NRBC x10^3 (test code <0.01 See_Comment [Auto mated = 6719560629) message] The s ystem which generated this result transmitted reference range : 10*3/?L. The reference range was not used to interpret this result as normal/abnormal . GRAN MAT (NEUT) % 56.1 % (test code = 770-8) IMM GRAN % (test code 0.10 % = 0857646544) LYMPH % (test code = 29.7 % 736-9) MONO % (test code = 9.6 % 5905-5) EOS % (test code = 3.8 % 713-8) BASO % (test code = 0.7 % 706-2) GRAN MAT x10^3(ANC) 3.79 10*3/uL 1.99-6.95 (test code = 3974854579) IMM GRAN x10^3 (test <0.03 0-0.06 code = 6574858587) LYMPH x10^3 (test code 2.01 10*3/uL 1.09-3.23 = 731-0) MONO x10^3 (test code 0.65 10*3/uL 0.36-1.02 = 742-7) EOS x10^3 (test code = 0.26 10*3/uL 0.06-0.53 711-2) BASO x10^3 (test code 0.05 10*3/uL 0.01-0.09 = 704-7) Lab Interpretation Abnormal (test code = 46188-6) [facility]2020-03-06 01:25:00 Test Item Value Reference Range Interpretation Comments POCT GLU (test code = 4474396854) 208 mg/dL 70-110 H Lab Interpretation (test code = Abnormal 52660-3) [facility] IrvingTROPONIN [id number] 00:08:00 Test Item Value Reference Range Interpretation Comments TROPONIN I (test 0.047 ng/mL See_Comment H [Automated code = 0338598144) message] The system which generated this result [...] ? Lab Interpretation Abnormal (test code = 23337-0) [facility] GLUCOSE (AUTOMATED)2020-03-05 21:19:00 Test Item Value Reference Range Interpretation Comments POCT GLU (test code = 3424395898) 234 mg/dL 70-110 H Lab Interpretation (test code = Abnormal 51613-8) [facility] GLUCOSE (AUTOMATED)2020-03-05 16:55:00 Test Item Value Reference Range Interpretation Comments POCT GLU (test code = 1861155336) 258 mg/dL 70-110 H Lab Interpretation (test code = Abnormal 60180-1) [facility] GLUCOSE (AUTOMATED)2020-03-05 12:59:00 Test Item Value Reference Range Interpretation Comments POCT GLU (test code = 7777886937) 194 mg/dL 70-110 H Lab Interpretation (test code = Abnormal 99880-4) [facility] IrvingTROPONIN [id number] 10:54:00 Test Item Value Reference Range Interpretation Comments TROPONIN I (test 0.071 ng/mL See_Comment H [Automated code = 3712396111) message] The system which generated this result [...] ? Lab Interpretation Abnormal (test code = 36841-9) [facility] (NA, K, CL, CO2, GLUCOSE, BUN, CREATININE, CA)2020-03-05 10:43:00 Test Item Value Reference Range Interpretation Comments NA (test code = 139 mmol/L 135-145 8756743576) K (test code = 4.1 mmol/L 3.5-5 5901974606) CL (test code = 101 mmol/L 98-108 4432628077) CO2 TOTAL (test code = 27 mmol/L 23-31 9752236929) AGAP (test code = 2-16 9509375518) BUN (test code = 25 mg/dL 7-23 H 1329314295) GLUCOSE (test code = 243 mg/dL 70-110 H 2936149003) CREATININE (test code = 1.22 mg/dL 0.6-1.25 7058588020) CALCIUM (test code = 9.8 mg/dL 8.6-10.6 8715312331) eGFR Calculation mL/min/1.73m2 (Non-) (test code = 1526739651) eGFR Calculation mL/min/1.73m2 () (test code = 0345590562) ALYSSA (test code = ALYSSA) Association of [...] tests). Lab Interpretation Abnormal (test code = 60397-1) [facility] WITH [id number] 10:23:00 Test Item Value Reference Range Interpretation Comments WBC (test code = See_Comment [Automated message] 6690-2) The system [employer] generated this result transmitted ref erence range: 4.20 - 1 0.70 10*3/?L. The re ference range was not u sed to interpret this result as normal/abnor mal. RBC (test code = See_Comment [Automated message] 419-8) The system [employer] generated this result transmitted ref erence range: [...] RDW-SD (test code 47.8 fL 38.5-51.6 = 70060-7) RDW-CV (test code 14.4 % 12.1-15.4 = 788-0) PLT (test code = See_Comment [Automated message] 567-3) The system [employer] generated this result transmitted ref erence range: 150 - 32 8 10*3/?L. The re ference range was not u sed to interpret this result as normal/abnor mal. MPV (test code = 9.8 fL 9.8-13 95473-6) NRBC/100 WBC (test See_Comment [Automat ed message] code = 9128875220) The syste m which generated this result transmitted ref erence range: 0.0 - 10 .0 /100 WBCs. The refer ence range was not u sed to interpret this result as normal/abnor mal. NRBC x10^3 (test <0.01 See_Comment [Automated message] code = 7110372178) The syste m which generated this result transmitted ref erence range: 10*3/?L. The reference range was not used to interpr et this result as normal/abnormal . GRAN MAT (NEUT) % 48.8 % (test code = 770-8) IMM GRAN % (test 0.20 % code = 9511323636) LYMPH % (test code 34.7 % = 736-9) MONO % (test code 10.8 % = 5905-5) EOS % (test code = 4.9 % 713-8) BASO % (test code 0.6 % = 706-2) GRAN MAT 2.49 10*3/uL 1.99-6.95 x10^3(ANC) (test code = 1306948019) IMM GRAN x10^3 <0.03 0-0.06 (test code = 3290059640) LYMPH x10^3 (test 1.77 10*3/uL 1.09-3.23 code = 731-0) MONO x10^3 (test 0.55 10*3/uL 0.36-1.02 code = 742-7) EOS x10^3 (test 0.25 10*3/uL 0.06-0.53 code = 711-2) BASO x10^3 (test 0.03 10*3/uL 0.01-0.09 code = 704-7) [facility] IrvingXR CHEST 1 [id number] 03:06:08 No acute cardiopulmonary process. Unchanged enlargement [...] study and agree with the abovereport.[facility] CORONAVIRUS COVID-19 [id number] 00:34:00 Test Item Value Reference Range Interpretation Comments SARS-CoV-2 (test code = Not Detected Not Detected 90404-8) ALYSSA (test code = ALYSSA) ID NOW COVID-19 Assay is an isothermal nucleic acid amplification test intended for the qualitative detection of nucleic acid from SARS-CoV-2 viral RNA in nasopharyngeal (CREAM RIPENER) specimens. It is used under Emergency Use [...] indicated. Lab Interpretation Normal (test code = 97435-8) [facility] IrvingTroponin [id number] 00:08:00 Test Item Value Reference Range Interpretation Comments TROPONIN I (test 0.056 ng/mL See_Comment H [Automated code = 0707656818) message] The system which generated this result [...] ? Lab Interpretation Abnormal (test code = 21464-1) [facility] IrvingN-TERMINAL [id number] 00:04:00 Test Item Value Reference Range Interpretation Comments NT-proBNP (test code 562 pg/mL See_Comment H [Autom ated = 2422677856) message] The system which generated this result transmitted reference range : <=450. The reference range was not used to interpret this result as normal/abnormal . ALYSSA (test code = ALYSSA) Biotin has been reported to cause a negative bias, interpret results relative to patient's use of biotin. Lab Interpretation Abnormal (test code = 80501-9) [facility] IrvingProthrombin Time (PT) / [id number] 23:57:00 Test Item Value Reference Range Interpretation [...] tions. Lab Interpretation (test Normal code = 88401-8) [facility] Metabolic Panel (NA, K, CL, CO2, GLUCOSE, BUN, CREATININE, CA)2020-03-04 23:56:00 Test Item Value Reference Range Interpretation Comments NA (test code = 139 mmol/L 135-145 0048559473) K (test code = 4.1 mmol/L 3.5-5 4985918064) CL (test code = 102 mmol/L 98-108 7112863370) CO2 TOTAL (test code = 29 mmol/L 23-31 2303351702) AGAP (test code = 2-16 7498581677) BUN (test code = 23 mg/dL 7-23 9165002604) GLUCOSE (test code = 193 mg/dL 70-110 H 6392070815) CREATININE (test code = 1.25 mg/dL 0.6-1.25 1364204079) CALCIUM (test code = 9.7 mg/dL 8.6-10.6 5217384374) eGFR Calculation mL/min/1.73m2 (Non-) (test code = 8436425923) eGFR Calculation mL/min/1.73m2 () (test code = 3371846385) ALYSSA (test code = ALYSSA) Association of [...] tests). Lab Interpretation Abnormal (test code = 36557-4) [facility] IrvingHepatic Function Panel (ALB, T.PRO, BILI T, BU/BC, ALT, AST, ALK PHOS)2020-03-04 23:56:00 Test Item Value Reference Range Interpretation Comments TOTAL BILI (test code = 5463192138) 1.1 mg/dL 0.1-1.1 BILI UNCON (test code = 5154152919) 1.1 mg/dL 0.1-1.1 BILI CONJ (test code = 6955344073) 0.0 mg/dL 0-0.3 T PROTEIN (test code = 4506062738) 7.1 g/dL 6.3-8.2 ALBUMIN (test code = 1968482812) 4.1 g/dL 3.5-5 ALK PHOS (test code = 8577401102) 61 U/L 34-122 ALTv (test code = 1742-6) 16 U/L 5-50 AST(SGOT) (test code = 5451703721) 23 U/L 13-40 Lab Interpretation (test code = Normal 32561-2) [facility] IrvingLipase [id number] 23:56:00 Test Item Value Reference Range Interpretation Comments LIPASE (test code = 1942299515) 149 U/L 0-220 Lab Interpretation (test code = Normal 12891-6) [facility] IrvingaPTT2020-04-19 23:56:00 Test Item Value Reference Range Interpretation Comments APTT Patient (test See_Comment [Automat ed code = 3173-2) message] The system which generated this result transmitted reference range : 23 - 38 Seconds . The reference range was not used to interpr et this result as normal/abnormal . ALYSSA (test code = ALYSSA) The [facility] patient population mean normal value for aPTT is 30 seconds. Lab Interpretation Normal (test code = 05417-4) [facility] WITH [id number] 23:46:00 Test Item Value Reference Range Interpretation Comments WBC (test code = See_Comment [Automated 3590-2) message] The sy stem which generated this [...] RDW-SD (test code = 48.3 fL 38.5-51.6 68142-3) RDW-CV (test code = 14.7 % 12.1-15.4 788-0) PLT (test code = See_Comment [Automated 777-3) message] The sy stem which generated this result transmitted reference range : 150 - 328 10*3/ ?L. The reference r corey was not used to interpret this result as normal/abnormal . MPV (test code = 9.8 fL 9.8-13 78098-9) NRBC/100 WBC (test See_Comment [Automat ed code = 4395012624) message] The system which generated this result transmitted reference range : 0.0 - 10.0 /100 WBCs. The refer ence range was not u sed to interpret th is result as normal/abnormal . NRBC x10^3 (test code <0.01 See_Comment [Auto mated = 2276033492) message] The s ystem which generated this result transmitted reference range : 10*3/?L. The reference range was not used to interpret this result as normal/abnormal . GRAN MAT (NEUT) % 60.1 % (test code = 770-8) IMM GRAN % (test code 0.20 % = 4309633194) LYMPH % (test code = 26.4 % 736-9) MONO % (test code = 9.9 % 5905-5) EOS % (test code = 2.8 % 713-8) BASO % (test code = 0.6 % 706-2) GRAN MAT x10^3(ANC) 3.17 10*3/uL 1.99-6.95 (test code = 2857632473) IMM GRAN x10^3 (test <0.03 0-0.06 code = 8016346961) LYMPH x10^3 (test code 1.39 10*3/uL 1.09-3.23 = 731-0) MONO x10^3 (test code 0.52 10*3/uL 0.36-1.02 = 742-7) EOS x10^3 (test code = 0.15 10*3/uL 0.06-0.53 711-2) BASO x10^3 (test code 0.03 10*3/uL 0.01-0.09 = 704-7) Lab Interpretation Abnormal (test code = 64147-5) [facility] GLUCOSE (AUTOMATED)2020-03-02 16:04:00 Test Item Value Reference Range Interpretation Comments POCT GLU (test code = 4394881468) 214 mg/dL 70-110 H Lab Interpretation (test code = Abnormal 12674-1) [facility] GLUCOSE (AUTOMATED)2020-03-02 16:04:00 Test Item Value Reference Range Interpretation Comments POCT GLU (test code = 6493059219) 271 mg/dL 70-110 H Lab Interpretation (test code = Abnormal 76268-3) [facility] IrvingN-TERMINAL [id number] 09:43:00 Test Item Value Reference Range Interpretation Comments NT-proBNP (test code 1670 pg/mL See_Comment H [Autom ated = 1933772743) message] The system which generated this result transmitted reference range : <=450. The reference range was not used to interpret this result as normal/abnormal . ALYSSA (test code = ALYSSA) Biotin has been reported to cause a negative bias, interpret results relative to patient's use of biotin. Lab Interpretation Abnormal (test code = 73149-9) [facility] METABOLIC PANEL (NA, K, CL, CO2, GLUCOSE, BUN, CREATININE, CA)2020-03-02 09:33:00 Test Item Value Reference Range Interpretation Comments NA (test code = 143 mmol/L 135-145 3722558600) K (test code = 3.8 mmol/L 3.5-5 3510336450) CL (test code = 105 mmol/L 98-108 0806842961) CO2 TOTAL (test code = 28 mmol/L 23-31 2366820370) AGAP (test code = 2-16 6840894412) BUN (test code = 19 mg/dL 7-23 5817184335) GLUCOSE (test code = 152 mg/dL 70-110 H 1252742322) CREATININE (test code = 1.18 mg/dL 0.6-1.25 9306634713) CALCIUM (test code = 9.0 mg/dL 8.6-10.6 1912449508) eGFR Calculation mL/min/1.73m2 (Non-) (test code = 6682436912) eGFR Calculation mL/min/1.73m2 () (test code = 1686752538) ALYSSA (test code = ALYSSA) Association of [...] tests). Lab Interpretation Abnormal (test code = 81688-6) [facility] IrvingMAGNESIUM2020-04-17 09:33:00 Test Item Value Reference Range Interpretation Comments MAGNESIUM (test code = 1362876427) 1.8 mg/dL 1.7-2.4 Lab Interpretation (test code = Normal 92379-1) [facility]ATED)2020-03-01 20:42:00 Test Item Value Reference Range Interpretation Comments POCT GLU (test code = 5276044517) 231 mg/dL 70-110 H Lab Interpretation (test code = Abnormal 27430-0) [facility] IrvingVITAMIN B12, [id number] 11:51:00 Test Item Value Reference Range Interpretation Comments VIT B12 (test code = 325 pg/mL 240-930 [id number]) ALYSSA (test code = ALYSSA) Biotin has been reported to cause a positive bias, interpret results relative to patient's use of biotin. Lab Interpretation (test Normal code = 76058-5) [facility] 11:49:00 Test Item Value Reference Range Interpretation Comments FOLATE SER (test code = >20.0 3-20 H Slig ht hemolysis 4691192609) Lab Interpretation (test Abnormal code = 25369-7) [facility] IrvingPROCALCITONIN2020-04-16 10:49:00 Test Item Value Reference Range Interpretation Comments Procalcitonin (test 3.05 ng/mL <0.07 H code = 3280440987) ALYSSA (test code = ALYSSA) INTERPRETATION OF [...] lung abscess/empyema. For further information please refer to:[email or web address] Lab Interpretation Abnormal (test code = 68547-6) [facility] IrvingTROPONIN [id number] 09:58:00 Test Item Value Reference Range Interpretation Comments TROPONIN I (test 0.093 ng/mL See_Comment H [Automated code = 1415407559) message] The system which generated this result [...] ? Lab Interpretation Abnormal (test code = 32789-7) [facility] IrvingN-TERMINAL [id number] 09:55:00 Test Item Value Reference Range Interpretation Comments NT-proBNP (test code 4450 pg/mL See_Comment H [Autom ated = 0455506822) message] The system which generated this result transmitted reference range : <=450. The reference range was not used to interpret this result as normal/abnormal . ALYSSA (test code = ALYSSA) Biotin has been reported to cause a negative bias, interpret results relative to patient's use of biotin. Lab Interpretation Abnormal (test code = 53134-6) [facility] (NA, K, CL, CO2, GLUCOSE, BUN, CREATININE, CA)2020-03-01 09:50:00 Test Item Value Reference Range Interpretation Comments NA (test code = 141 mmol/L 135-145 3037393674) K (test code = 3.5 mmol/L 3.5-5 3776736306) CL (test code = 105 mmol/L 98-108 1023335433) CO2 TOTAL (test code = 26 mmol/L 23-31 1181055784) AGAP (test code = 2-16 6709675305) BUN (test code = 13 mg/dL 7-23 0314966159) GLUCOSE (test code = 219 mg/dL 70-110 H 6606767201) CREATININE (test code = 1.01 mg/dL 0.6-1.25 4837179333) CALCIUM (test code = 8.7 mg/dL 8.6-10.6 4257353096) eGFR Calculation mL/min/1.73m2 (Non-) (test code = 7930269980) eGFR Calculation mL/min/1.73m2 () (test code = 1249279207) ALYSSA (test code = ALYSSA) Association of [...] tests). Lab Interpretation Abnormal (test code = 36692-8) [facility] IrvingMagnesium [id number] 09:50:00 Test Item Value Reference Range Interpretation Comments MAGNESIUM (test code = 9450376811) 1.9 mg/dL 1.7-2.4 Lab Interpretation (test code = Normal 67642-8) [facility] IrvingCB WITH [id number] 09:22:00 Test Item Value Reference Range Interpretation Comments WBC (test code = See_Comment [Automated 3490-2) message] The sy stem which generated this result transmitted reference range : 4.20 - 10.70 10*3/?L. The reference range was not used to interpret this result as normal/abnormal . RBC (test code = See_Comment L [Automated 619-8) message] The sy stem which generated this [...] RDW-SD (test code = 47.8 fL 38.5-51.6 81900-5) RDW-CV (test code = 14.8 % 12.1-15.4 788-0) PLT (test code = See_Comment L [Automated 777-3) message] The sy stem which generated this result transmitted reference range : 150 - 328 10*3/ ?L. The reference r corey was not used to interpret this result as normal/abnormal . MPV (test code = 9.9 fL 9.8-13 18602-4) NRBC/100 WBC (test See_Comment [Automat ed code = 2262293676) message] The system which generated this result transmitted reference range : 0.0 - 10.0 /100 WBCs. The refer ence range was not u sed to interpret th is result as normal/abnormal . NRBC x10^3 (test code <0.01 See_Comment [Auto mated = 9031110936) message] The s ystem which generated this result transmitted reference range : 10*3/?L. The reference range was not used to interpret this result as normal/abnormal . GRAN MAT (NEUT) % 66.0 % (test code = 770-8) IMM GRAN % (test code 0.30 % = 1922879061) LYMPH % (test code = 20.8 % 736-9) MONO % (test code = 9.5 % 5905-5) EOS % (test code = 2.8 % 713-8) BASO % (test code = 0.6 % 706-2) GRAN MAT x10^3(ANC) 4.44 10*3/uL 1.99-6.95 (test code = 2239698323) IMM GRAN x10^3 (test <0.03 0-0.06 code = 2944205097) LYMPH x10^3 (test code 1.40 10*3/uL 1.09-3.23 = 731-0) MONO x10^3 (test code 0.64 10*3/uL 0.36-1.02 = 742-7) EOS x10^3 (test code = 0.19 10*3/uL 0.06-0.53 711-2) BASO x10^3 (test code 0.04 10*3/uL 0.01-0.09 = 704-7) Lab Interpretation Abnormal (test code = 92087-6) [facility] IrvingGLYCOSYLATED HEMOGLOBIN (A1C)2020-03-01 06:49:00 Test Item Value Reference [...] Indicated Lab Interpretation Abnormal (test code = 32978-5) [facility] IrvingURIC [id number] 06:25:00 Test Item Value Reference Range Interpretation Comments URIC ACID (test code = 4359065416) 2.3 mg/dL 3.6-8 L Lab Interpretation (test code = Abnormal 53879-3) [facility] IrvingSEDIMENTATION [id number] 05:25:00 Test Item Value Reference Range Interpretation Comments ESR (test code = See_Comment H [Automated message] 7442530241) The system [employer] h generated this result transmitted ref erence range: 0 - 10 m m/HR. The reference r corey was not used to interpret this result as normal/abnor mal. Lab Interpretation (test Abnormal code = 36114-5) [facility] IrvingN-TERMINAL [id number] 04:07:00 Test Item Value Reference Range Interpretation Comments NT-proBNP (test code 4080 pg/mL See_Comment H [Autom ated = 9948826273) message] The system which generated this result transmitted reference range : <=450. The reference range was not used to interpret this result as normal/abnormal . ALYSSA (test code = ALYSSA) Biotin has been reported to cause a negative bias, interpret results relative to patient's use of biotin. Lab Interpretation Abnormal (test code = 29518-0) [facility] IrvingPOCT GLUCOSE (AUTOMATED)2020-03-01 03:42:00 Test Item Value Reference Range Interpretation Comments POCT GLU (test code = 5268716176) 190 mg/dL 70-110 H Lab Interpretation (test code = Abnormal 46802-8) [facility] IrvingTROPONIN [id number] 03:30:00 Test Item Value Reference Range Interpretation Comments TROPONIN I (test 0.098 ng/mL See_Comment H [Automated code = 4730819691) message] The system which generated this result [...] ? Lab Interpretation Abnormal (test code = 45509-7) [facility] IrvingHEPATIC FUNCTION PANEL (12942) (ALB,T.PRO,BILI T,BU/BC,ALT,AST,ALK PHOS)2020-03-01 03:24:00 Test Item Value Reference Range Interpretation Comments TOTAL BILI (test code = 0170987128) 2.2 mg/dL 0.1-1.1 H BILI UNCON (test code = 8316970023) 2.0 mg/dL 0.1-1.1 H BILI CONJ (test code = 5041350103) 0.0 mg/dL 0-0.3 T PROTEIN (test code = 1456921227) 6.7 g/dL 6.3-8.2 ALBUMIN (test code = 2028281044) 4.0 g/dL 3.5-5 ALK PHOS (test code = 3145473957) 48 U/L 34-122 ALTv (test code = 1742-6) 18 U/L 5-50 AST(SGOT) (test code = 5954019974) 57 U/L 13-40 H Lab Interpretation (test code = Abnormal 51039-4) [facility] IrvingPhosphorus [id number] 03:17:00 Test Item Value Reference Range Interpretation Comments PHOSPHORUS (test code = 3.1 mg/dL 2.5-5 Slig ht hemolysis 4949131115) Lab Interpretation (test Normal code = 17623-3) [facility] IrvingPROTHROMBIN TIME / [id number] 03:08:00 Test Item Value Reference Range Interpretation Comments PROTIME PATIENT (test See_Comment [Auto mated message] code = 5964-2) The system [facility] generated this result transmitted ref erence range: 12.0 - 1 4.7 Seconds. The re ference range was not u sed to interpret this result as normal/abnor mal. INR (test code = 6301-6) Nor mal INR <1.1; Warfarin Therap eutic range 2.0 to 3. 0 or 2.5 to 3.5, dep ending upon the indica tions. Lab Interpretation (test Normal code = 38586-7) [facility] IrvingCREATINE [id number] 03:01:00 Test Item Value Reference Range Interpretation Comments CK (test code = 0012397996) 68 U/L 33-194 Lab Interpretation (test code = Normal 12866-4) [facility] IrvingURIC [id number] 02:41:00 Test Item Value Reference Range Interpretation Comments URIC ACID (test code = 5214546705) 2.3 mg/dL 3.6-8 L Lab Interpretation (test code = Abnormal 89594-5) [facility] IrvingTHYROID STIMULATING [id number] 02:26:00 Test Item Value Reference Range Interpretation Comments TSH (test code = See_Comment [Automated message] 2885000342) The system [facility] h generated this result transmitted ref erence range: 0.45 - 4 .70 mIU/L. The refe rence range was not u sed to interpret this result as normal/abnor mal. Lab Interpretation (test Normal code = 27413-4) [facility] IrvingN-TERMINAL [id number] 02:04:00 Test Item Value Reference Range Interpretation Comments NT-proBNP (test code 4390 pg/mL See_Comment H [Autom ated = 9565397839) message] The system which generated this result transmitted reference range : <=450. The reference range was not used to interpret this result as normal/abnormal . ALYSSA (test code = ALYSSA) Biotin has been reported to cause a negative bias, interpret results relative to patient's use of biotin. Lab Interpretation Abnormal (test code = 51181-0) [facility] IrvingMAGNESIUM2020-04-16 02:01:00 Test Item Value Reference Range Interpretation Comments MAGNESIUM (test code = 4506881771) 1.5 mg/dL 1.7-2.4 L Lab Interpretation (test code = Abnormal 35816-4) [facility] IrvingLIPASE2020-04-16 00:22:00 Test Item Value Reference Range Interpretation Comments LIPASE (test code = 9877376259) 68 U/L 0-220 Lab Interpretation (test code = Normal 58187-8) [facility] IrvingCORONAVIRUS COVID-19 [id number] 23:42:00 Test Item Value Reference Range Interpretation Comments SARS-CoV-2 (test code = Not Detected Not Detected 78362-7) ALYSSA (test code = ALYSSA) ID NOW COVID-19 Assay is an isothermal nucleic acid amplification test intended for the qualitative detection of nucleic acid from SARS-CoV-2 viral RNA in nasopharyngeal (CREAM RIPENER) specimens. It is used under Emergency Use [...] indicated. Lab Interpretation Normal (test code = 05601-5) [facility] IrvingXR CHEST 1 VW [id number] 23:26:02 No acute intrathoracic abnormality, specifically no radiographic findingsto suggest COVID-19 pneumonia. Disclaimer: Generally, the findings on chest imaging in COVID-19 are notspecific, and overlap with other infections, including influenza, H1N1,SARS and MERS. According to the Centers for Disease Control (CDC) and recent statement ofthe [employer], viral testing remains the [...] stimulating device overlie the mid thoracic spine. [facility], Radiant ResultsInft User - 02/29/2020 6:27 PM [...] Disease Control (CDC) and recent statement ofthe [employer], viral testing remains the only specificmethod of diagnosis. Confirmation with the viral test is required, even ifradiologic findings are suggestive of COVID-[address]. Preliminary Report Dictated by Resident: Radu Boo MD., have reviewed this study and agree with theabovereport.[facility] IrvingWendy [id number] 22:59:00 Test Item Value Reference Range Interpretation Comments TROPONIN I (test 0.071 ng/mL See_Comment H [Automated code = 0043311031) message] The system which generated this result [...] ? Lab Interpretation Abnormal (test code = 67523-7) [facility] (NA, K, CL, CO2, GLUCOSE, BUN, CREATININE, CA)2020-02-29 22:48:00 Test Item Value Reference Range Interpretation Comments NA (test code = 141 mmol/L 135-145 5841812418) K (test code = 3.2 mmol/L 3.5-5 L 0396934144) CL (test code = 104 mmol/L 98-108 5320097664) CO2 TOTAL (test code = 25 mmol/L 23-31 4583924655) AGAP (test code = 2-16 4691398830) BUN (test code = 12 mg/dL 7-23 4711795181) GLUCOSE (test code = 250 mg/dL 70-110 H 1767283604) CREATININE (test code = 1.02 mg/dL 0.6-1.25 6966761940) CALCIUM (test code = 8.9 mg/dL 8.6-10.6 7522091809) eGFR Calculation mL/min/1.73m2 (Non-) (test code = 3445479602) eGFR Calculation mL/min/1.73m2 () (test code = 7501506223) ALYSSA (test code = ALYSSA) Association of [...] tests). Lab Interpretation Abnormal (test code = 25818-2) [facility] WITH [id number] 22:41:00 Test Item Value Reference Range Interpretation Comments WBC (test code = See_Comment [Automated 7417-2) message] The sy stem which generated this result transmitted reference range : 4.20 - 10.70 10*3/?L. The reference range was not used to interpret this result as normal/abnormal . RBC (test code = See_Comment L [Automated 609-8) message] The sy stem which generated this [...] RDW-SD (test code = 46.6 fL 38.5-51.6 33302-0) RDW-CV (test code = 14.6 % 12.1-15.4 788-0) PLT (test code = See_Comment [Automated 777-3) message] The sy stem which generated this result transmitted reference range : 150 - 328 10*3/ ?L. The reference r corey was not used to interpret this result as normal/abnormal . MPV (test code = 9.7 fL 9.8-13 L 02817-2) NRBC/100 WBC (test See_Comment [Automat ed code = 4833544048) message] The system which generated this result transmitted reference range : 0.0 - 10.0 /100 WBCs. The refer ence range was not u sed to interpret th is result as normal/abnormal . NRBC x10^3 (test code <0.01 See_Comment [Auto mated = 5792932072) message] The s ystem which generated this result transmitted reference range : 10*3/?L. The reference range was not used to interpret this result as normal/abnormal . GRAN MAT (NEUT) % 68.6 % (test code = 770-8) IMM GRAN % (test code 0.30 % = 6675809986) LYMPH % (test code = 18.6 % 736-9) MONO % (test code = 10.1 % 5905-5) EOS % (test code = 1.8 % 713-8) BASO % (test code = 0.6 % 706-2) GRAN MAT x10^3(ANC) 4.29 10*3/uL 1.99-6.95 (test code = 4642417368) IMM GRAN x10^3 (test <0.03 0-0.06 code = 3730265746) LYMPH x10^3 (test code 1.16 10*3/uL 1.09-3.23 = 731-0) MONO x10^3 (test code 0.63 10*3/uL 0.36-1.02 = 742-7) EOS x10^3 (test code = 0.11 10*3/uL 0.06-0.53 711-2) BASO x10^3 (test code 0.04 10*3/uL 0.01-0.09 = 704-7) Lab Interpretation Abnormal (test code = 10166-6) [facility] IrvingLaokic Acid Whole [id number] 22:38:00 Test Item Value Reference Range Interpretation Comments LACTIC ACID (test code = 1.88 mmol/L 0.3-2.6 8322222608) [facility] IrvingPOID GLUCOSE (AUTOMATED)2020-01-17 18:18:00 Test Item Value Reference Range Interpretation Comments POCT GLU (test code = 8087668110) 290 mg/dL 70-110 H Lab Interpretation (test code = Abnormal 38179-0) [facility] IrvingTROPONIN [id number] 18:01:00 Test Item Value Reference Range Interpretation Comments TROPONIN I (test 0.065 ng/mL See_Comment H [Automated code = 6845964192) message] The system which generated this result [...] ? Lab Interpretation Abnormal (test code = 69283-8) [facility] IrvingaPTT2020-03-03 17:10:00 Test Item Value Reference Range Interpretation Comments APTT Patient (test See_Comment H [Automat ed code = 3173-2) message] The system which generated this result transmitted reference range : 23 - 38 Seconds . The reference range was not used to interpr et this result as normal/abnormal . ALYSSA (test code = ALYSSA) The [facility] patient population mean normal value for aPTT is 30 seconds. Lab Interpretation Abnormal (test code = 72726-7) [facility] IrvingPOCT GLUCOSE (AUTOMATED)2020-01-17 11:59:00 Test Item Value Reference Range Interpretation Comments POCT GLU (test code = 5667825567) 185 mg/dL 70-110 H Lab Interpretation (test code = Abnormal 95255-2) [facility] IrvingTROPONIN [id number] 11:23:00 Test Item Value Reference Range Interpretation Comments TROPONIN I (test 0.073 ng/mL See_Comment H [Automated code = 2073659094) message] The system which generated this result [...] ? Lab Interpretation Abnormal (test code = 51726-4) [facility] (NA, K, CL, CO2, GLUCOSE, BUN, CREATININE, CA)2020-01-17 11:16:00 Test Item Value Reference Range Interpretation Comments NA (test code = 136 mmol/L 135-145 0321973462) K (test code = 3.3 mmol/L 3.5-5 L 8813464509) CL (test code = 101 mmol/L 98-108 6025390459) CO2 TOTAL (test code = 26 mmol/L 23-31 2735018384) AGAP (test code = 2-16 2569448530) BUN (test code = 19 mg/dL 7-23 6610323075) GLUCOSE (test code = 227 mg/dL 70-110 H 8028835032) CREATININE (test code = 1.33 mg/dL 0.6-1.25 H 6723171108) CALCIUM (test code = 9.1 mg/dL 8.6-10.6 9278087651) eGFR Calculation mL/min/1.73m2 (Non-) (test code = 5247463979) eGFR Calculation mL/min/1.73m2 () (test code = 9694702827) ALYSSA (test code = ALYSSA) Association of [...] tests). Lab Interpretation Abnormal (test code = 89222-1) [facility] IrvingaPTT2020-03-03 11:00:00 Test Item Value Reference Range Interpretation Comments APTT Patient (test See_Comment H [Automat ed code = 3173-2) message] The system which generated this result transmitted reference range : 23 - 38 Seconds . The reference range was not used to interpr et this result as normal/abnormal . ALYSSA (test code = ALYSSA) The [facility] patient population mean normal value for aPTT is 30 seconds. Lab Interpretation Abnormal (test code = 07309-7) [facility] IrvingCB WITH [id number] 10:43:00 Test Item Value Reference Range Interpretation Comments WBC (test code = See_Comment [Automated message] 6690-2) The system [employer] generated this result transmitted ref erence range: 4.20 - 1 0.70 10*3/?L. The re ference range was not u sed to interpret this result as normal/abnor mal. RBC (test code = See_Comment [Automated message] 789-8) The system [employer] generated this result transmitted ref erence range: [...] RDW-SD (test code 41.5 fL 38.5-51.6 = 58665-4) RDW-CV (test code 12.8 % 12.1-15.4 = 788-0) PLT (test code = See_Comment [Automated message] 777-3) The system [employer]ic h generated this result transmitted ref erence range: 150 - 32 8 10*3/?L. The re ference range was not u sed to interpret this result as normal/abnor mal. MPV (test code = 10.7 fL 9.8-13 54022-1) NRBC/100 WBC (test See_Comment [Automat ed message] code = 5675532175) The syste m which generated this result transmitted ref erence range: 0.0 - 10 .0 /100 WBCs. The refer ence range was not u sed to interpret this result as normal/abnor mal. NRBC x10^3 (test <0.01 See_Comment [Automated message] code = 7426804923) The syste m which generated this result transmitted ref erence range: 10*3/?L. The reference range was not used to interpr et this result as normal/abnormal . GRAN MAT (NEUT) % 56.1 % (test code = 770-8) IMM GRAN % (test 0.30 % code = 9752672258) LYMPH % (test code 29.5 % = 736-9) MONO % (test code 9.9 % = 5905-5) EOS % (test code = 3.3 % 713-8) BASO % (test code 0.9 % = 706-2) GRAN MAT 3.73 10*3/uL 1.99-6.95 x10^3(ANC) (test code = 4768392781) IMM GRAN x10^3 <0.03 0-0.06 (test code = 6681564717) LYMPH x10^3 (test 1.96 10*3/uL 1.09-3.23 code = 731-0) MONO x10^3 (test 0.66 10*3/uL 0.36-1.02 code = 742-7) EOS x10^3 (test 0.22 10*3/uL 0.06-0.53 code = 711-2) BASO x10^3 (test 0.06 10*3/uL 0.01-0.09 code = 704-7) [facility] GLUCOSE (AUTOMATED)2020-01-17 01:49:00 Test Item Value Reference Range Interpretation Comments POCT GLU (test code = 8905396196) 305 mg/dL 70-110 H Lab Interpretation (test code = Abnormal 34039-7) [facility] GLUCOSE (AUTOMATED)2020-01-17 00:01:00 Test Item Value Reference Range Interpretation Comments POCT GLU (test code = 3229048737) 271 mg/dL 70-110 H Lab Interpretation (test code = Abnormal 56275-0) [facility] IrvingaPTT2020-03-02 22:23:00 Test Item Value Reference Range Interpretation Comments APTT Patient (test See_Comment H [Automat ed code = 3173-2) message] The system which generated this result transmitted reference range : 23 - 38 Seconds . The reference range was not used to interpr et this result as normal/abnormal . ALYSSA (test code = ALYSSA) The [facility] patient population mean normal value for aPTT is 30 seconds. Lab Interpretation Abnormal (test code = 30917-3) [facility] IrvingTROPONIN [id number] 21:22:00 Test Item Value Reference Range Interpretation Comments TROPONIN I (test 0.061 ng/mL See_Comment H [Automated code = 3616177297) message] The system which generated this result [...] ? Lab Interpretation Abnormal (test code = 19386-7) [facility] IrvingPO[facility] GLU[facility]AUTOMATED)2020-01-16 17:37:00 Test Item Value Reference Range Interpretation Comments POCT GLU (test code = 0873834968) 271 mg/dL 70-110 H Lab Interpretation (test code = Abnormal 65958-8) [facility] IrvingaPTT2020-03-02 12:47:00 Test Item Value Reference Range Interpretation Comments APTT Patient (test See_Comment HH [Automat ed code = 3173-2) message] The system which generated this result transmitted reference range : 23 - 38 Seconds . The reference range was not used to interpr et this result as normal/abnormal . ALYSSA (test code = ALYSSA) The [facility] patient population mean normal value for aPTT is 30 seconds. Lab Interpretation Abnormal (test code = 03125-0) [facility] IrvingTROPONIN [id number] 12:35:00 Test Item Value Reference Range Interpretation Comments TROPONIN I (test 0.074 ng/mL See_Comment H [Automated code = 5055369478) message] The system which generated this result [...] ? Lab Interpretation Abnormal (test code = 90245-2) [facility] IrvingLIPID PANEL (91694)(TOTAL CHOLESTEROL, TRIGLYCERIDES, HDL)2020-01-16 12:23:00 Test Item Value Reference Range Interpretation Comments CHOL (test code = 95 mg/dL 120-200 L 2859909449) HDL (test code = 44 mg/dL >40 3078657587) HDLC RATIO (test code = See_Comment [Au tomated message] 2884869239) The system [employer] generated this result transmitted ref erence range: <=5.0. T he reference range was not used to int erpret this result as normal/abnormal . TRIG (test code = 89 mg/dL 30-170 1768920631) LDL CHOL (test code = 33 mg/dL See_Comment [Auto mated message] 79909-8) The system [employer] generated this result transmitted ref erence range: <=160. T he reference range was not used to int erpret this result as normal/abnormal . VLDL (test code = 18 mg/dL 5-60 1903308843) Lab Interpretation (test Abnormal code = 14195-2) [facility] IrvingGlycosylated Hemoglobin (A1C)2020-01-16 09:03:00 Test Item Value Reference [...] Indicated Lab Interpretation Abnormal (test code = 93017-3) [facility] IrvingCritical [id number] 05:48:18Charanjit Heck MD ? ? 01/15/2020 11:48 [...] review of old charts and examination of patientUnB[facility] FallsProthrombin Time (PT) / [id number] 05:28:00 Test Item Value Reference Range Interpretation [...] tions. Lab Interpretation (test Normal code = 70177-2) [facility] IrvingaPTT2020-03-02 05:27:00 Test Item Value Reference Range Interpretation Comments APTT Patient (test See_Comment [Automat ed code = 3173-2) message] The system which generated this result transmitted reference range : 23 - 38 Seconds . The reference range was not used to interpr et this result as normal/abnormal . ALYSSA (test code = ALYSSA) The [facility] patient population mean normal value for aPTT is 30 seconds. Lab Interpretation Normal (test code = 88771-7) [facility] [id number] 05:11:00 Test Item Value Reference Range Interpretation Comments TROPONIN I (test 0.075 ng/mL See_Comment H [Automated code = 1493147664) message] The system which generated this result [...] ? Lab Interpretation Abnormal (test code = 83511-1) [facility] [id number] 05:08:00 Test Item Value Reference Range Interpretation Comments NT-proBNP (test code 896 pg/mL See_Comment H [Autom ated = 7653778467) message] The system which generated this result transmitted reference range : <=450. The reference range was not used to interpret this result as normal/abnormal . ALYSSA (test code = ALYSSA) Biotin has been reported to cause a negative bias, interpret results relative to patient's use of biotin. Lab Interpretation Abnormal (test code = 04082-8) [facility] (NA, K, CL, CO2, GLUCOSE, BUN, CREATININE, CA)2020-01-16 04:59:00 Test Item Value Reference Range Interpretation Comments NA (test code = 136 mmol/L 135-145 4151867641) K (test code = 4.0 mmol/L 3.5-5 0290344254) CL (test code = 101 mmol/L 98-108 6988200098) CO2 TOTAL (test code = 27 mmol/L 23-31 4669214054) AGAP (test code = 2-16 3389626862) BUN (test code = 17 mg/dL 7-23 1838692135) GLUCOSE (test code = 445 mg/dL 70-110 H 4434661683) CREATININE (test code = 1.29 mg/dL 0.6-1.25 H 8457967871) CALCIUM (test code = 8.8 mg/dL 8.6-10.6 4906809809) eGFR Calculation mL/min/1.73m2 (Non-) (test code = 6765689359) eGFR Calculation mL/min/1.73m2 () (test code = 5546113373) ALYSSA (test code = ALYSSA) Association of [...] tests). Lab Interpretation Abnormal (test code = 24633-0) [facility] (ALB, T.PRO, BILI T, BU/BC, ALT, AST, ALK PHOS)2020-01-16 04:59:00 Test Item Value Reference Range Interpretation Comments TOTAL BILI (test code = 2340815262) 1.3 mg/dL 0.1-1.1 H BILI UNCON (test code = 6826395690) 1.1 mg/dL 0.1-1.1 BILI CONJ (test code = 3709545638) 0.0 mg/dL 0-0.3 T PROTEIN (test code = 1828640727) 6.3 g/dL 6.3-8.2 ALBUMIN (test code = 3080210341) 3.9 g/dL 3.5-5 ALK PHOS (test code = 2961019844) 67 U/L 34-122 ALTv (test code = 1742-6) 15 U/L 5-50 AST(SGOT) (test code = 9367924702) 23 U/L 13-40 Lab Interpretation (test code = Abnormal 45672-4) [facility] 1 [id number] 04:54:13Impression: Moderate cardiomegaly without acute pulmonary process. RL: 460 AFC: [id number] Indication: Chest pain Comparison: None available Findings: Single AP view of the chest. The cardiopericardial silhouette ismoderately enlarged. The lungs are clear bilaterally. The visualized bonythorax is intact. A thoracic neurostimulator device is in place. [facility], Radiant Results Inft User - 01/15/2020 10:55 PM CSTIndication: Chest painComparison: None availableFindings: Single AP view of the chest. The cardiopericardial silhouette ismoderately enlarged. The lungs are clear bilaterally. The visualized bonythorax is intact. A thoracic neurostimulator device is in place.IMPRESSIONImpression:Moderate cardiomegaly without acute pulmonary process.RL: 460AFC: [id number] signed by Esperanza Rosado MD, PhD at 01/15/2020 10:54 [facility] [id number] 04:51:00 Test Item Value Reference Range Interpretation [...] RDW-SD (test code = 40.7 fL 38.5-51.6 19456-4) RDW-CV (test code = 12.8 % 12.1-15.4 788-0) PLT (test code = See_Comment L [Automated 777-3) message] The sy stem which generated this result transmitted reference range : 150 - 328 10*3/ ?L. The reference r corey was not used to interpret this result as normal/abnormal . MPV (test code = 10.6 fL 9.8-13 39725-8) IPF % (test code = 2.8 % 1.2-10.7 Platelet count 4717743342) measured by fluorescence method. NRBC/100 WBC (test See_Comment [Automat ed code = 0948579295) message] The system which generated this result transmitted reference range : 0.0 - 10.0 /100 WBCs. The refer ence range was not u sed to interpret th is result as normal/abnormal . NRBC x10^3 (test code <0.01 See_Comment [Auto mated = 9468823771) message] The s ystem which generated this result transmitted reference range : 10*3/?L. The reference range was not used to interpret this result as normal/abnormal . GRAN MAT (NEUT) % 56.0 % (test code = 770-8) IMM GRAN % (test code 0.20 % = 4442764452) LYMPH % (test code = 30.5 % 736-9) MONO % (test code = 9.6 % 5905-5) EOS % (test code = 2.8 % 713-8) BASO % (test code = 0.9 % 706-2) GRAN MAT x10^3(ANC) 2.98 10*3/uL 1.99-6.95 (test code = 0299096442) IMM GRAN x10^3 (test <0.03 0-0.06 code = 4569486165) LYMPH x10^3 (test code 1.62 10*3/uL 1.09-3.23 = 731-0) MONO x10^3 (test code 0.51 10*3/uL 0.36-1.02 = 742-7) EOS x10^3 (test code = 0.15 10*3/uL 0.06-0.53 711-2) BASO x10^3 (test code 0.05 10*3/uL 0.01-0.09 = 704-7) Lab Interpretation Abnormal (test code = 70754-7) [facility]"
--- NOTE | 2022-01-22 01:46 | ER ---
Nurse's Notes [facility] Name: Demetrius Sarmiento Age: 81 yrs Sex: Male : 1940 Arrival Date: 01/22/2022 Time: 01:25 Bed 7 Private MD: Diagnosis: Hyperglycemia, unspecified-Poorly controlled (400);Low back pain-Poorly controlled (second visit in 2 days for same problem) Presentation: 01/22 01:28 Chief complaint: EMS states: pt was here yesterday and he couldn't get his prescription kd3 filled. Coronavirus screen: Vaccine status: Patient reports receiving the 2nd dose of the covid vaccine. Ebola Screen: No symptoms or risks identified at this time. Initial Sepsis Screen: Does the patient meet any 2 criteria? No. Patient's initial sepsis screen is negative. Does the patient have a suspected source of infection? No. Patient's initial sepsis screen is negative. Risk Assessment: Do you want to hurt yourself or someone else? Patient reports no desire to harm self or others. Onset of symptoms was January 22, 2022. 01:28 Method Of Arrival: EMS: [facility] kd3 01:28 Acuity: LANCE 3 kd3 Triage Assessment: 01:32 General: Appears uncomfortable, Behavior is calm, cooperative, appropriate for age. kd3 Pain: Complains of pain in lumbar area, left low back and right low back Pain radiates to right leg. Musculoskeletal:. Historical: - Home Meds: 01:32 aspirin 81 mg Oral TbEC 1 tab once daily [Active]; atorvastatin 40 mg Oral tab 1 tab kd3 nightly [Active]; clopidogrel 75 mg Oral tab 1 tab once daily [Active]; donepezil 5 mg Oral tab 1 tab nightly [Active]; furosemide 20 mg Oral tab 1 tab once daily [Active]; isosorbide mononitrate 120 mg Oral Tb24 1 tab once daily [Active]; Januvia 50 mg Oral tab 1 tab once daily [Active]; potassium chloride 10 mEq Oral TbER 1 tab once daily [Active]; - PMHx: 01:32 CAD; cardiac arrest; CHF; chronic kidney disease; Chronic pain; Diabetes - IDDM; High kd3 Cholesterol; Hypertension; Myocardial infarction; - PSHx: :32 4 heart stents; kd3 - Immunization history:: Adult Immunizations up to date, Client reports receiving the 2nd dose of the Covid vaccine. - Social history:: Smoking status: Patient denies any tobacco usage or history of. Screenin:34 Abuse screen: Denies threats or abuse. Denies injuries from another. Nutritional kd3 screening: No deficits noted. Tuberculosis screening: No symptoms or risk factors identified. Fall Risk None identified. Assessment: 01:35 Neuro: Level of Consciousness is awake, alert, obeys commands, Oriented to person, kd3 place, time, situation. Vital Signs: 01:28 BP 158 / 81; Pulse 107; Resp 20; Temp 98.4(O); Pulse Ox 99% on R/A; Pain 9/10; kd3 03:55 BP 131 / 78; Pulse 94; Resp 16; Pulse Ox 95% ; kd3 ED Course: 01:25 Patient arrived in ED. kc5 01:25 Esteban Martinez MD is Attending Physician. kdr 01:28 Priya Hernandez RN is Primary Nurse. kd3 01:32 Triage completed. kd3 01:34 Bed in low position. Call light in reach. Side rails up X 1. kd3 01:35 Arm band placed on right wrist. kd3 01:44 Sukhwinder Mcclendon is Hospitalizing Provider. kdr 01:52 Inserted saline lock: 20 gauge in right forearm, using aseptic technique. Blood sm5 collected. 01:52 CBC with Diff Sent. sm5 01:52 Chem 7 Sent. sm5 02:06 COVID-19 SARS RT PCR (Document "Date of Onset" if Symptomatic) Sent. kd3 03:48 No provider procedures requiring assistance completed. Patient admitted, IV remains in kd3 place. Administered Medications: 01:55 Drug: Tylenol #3 (300 mg-30 mg) 1 tablet Route: PO; kd3 03:47 Follow up: Response: Pain is decreased kd3 01:55 Drug: Insulin Regular Human 8 units {Co-Signature: sm5 (Vanessa Batres RN).} Route: IVP; kd3 Site: right forearm; 03:47 Follow up: Response: No adverse reaction kd3 Point of Care Testing: Blood Glucose: 01:46 Blood Glucose: 401 mg/dL; sm5 Ranges: Outcome: 01:45 Decision to Hospitalize by Provider. kdr 03:48 Admitted to Med/surg room 223. kd3 03:48 Condition: stable 03:48 Instructed on the need for admit. 03:53 Admitted to Med/surg accompanied by benji, Report called to Vanessa STONER kd3 04:02 Patient left the ED. kd3 Signatures: Esteban Martinez MD MD kdr Doucette, Kyli, RN RN kd3 Ngoc Teresa 5 Vanessa Batres RN RN sm5 Vanessa Batres RN sm5
--- NOTE | 2022-01-22 01:46 | EDPHYS ---
Physician Documentation [facility] Name: Demetrius Sarmiento Age: 81 yrs Sex: Male : 1940 Arrival Date: 01/22/2022 Time: 01:25 Bed 7 Private MD: ED Physician Esteban Martinez HPI: 01/22 01:46 This 81 yrs old Male presents to ER via EMS with complaints of Back Pain. kdr 01:46 The patient presents with pain that is chronic, with no known mechanism of injury, and kdr decreased range of motion, and tenderness. The symptoms are located in the low back. Onset: The symptoms/episode began/occurred at an unknown time. Patient has pain radiating down to just above his knee chronically. This is unchanged in recent days and weeks. Associated signs and symptoms: Pertinent positives: Hyperglycemia. The problem was sustained without known cause. Modifying factors: The patient symptoms are alleviated by remaining still, the patient symptoms are aggravated by any movement. The patient has experienced similar episodes in the past, chronically, and the symptoms today are exactly the same. The patient has been recently seen at the [facility] Emergency Department, yesterday. Patient was seen here yesterday for similar problems. He was evaluated and discharged after a CT scan of his abdomen. The patient called the ED earlier this evening asking what to do since he had presented the prescription given (tramadol) and they reportedly refused to fill the prescription. After further investigation, it was noted that the patient had received several Tylenol 3 prescriptions over the last several months. In assessing the patient and the belongings that presented with him via EMS, it was noted that the patient had a full bottle of Tylenol 3 that had as yet been unused in any way. Patient states that he does not manage his medications he only takes them as directed by his daughter come to the house and organizes his medications once every week or 2. The patient otherwise does not have any ability or capability to manage his own medications. The patient has no new complaints tonight only continued pain. Incidentally it was noted that his blood sugar was significantly elevated and as ascertained here, it is currently 400.. Historical: - Home Meds: 01:32 aspirin 81 mg Oral TbEC 1 tab once daily [Active]; atorvastatin 40 mg Oral tab 1 tab kd3 nightly [Active]; clopidogrel 75 mg Oral tab 1 tab once daily [Active]; donepezil 5 mg Oral tab 1 tab nightly [Active]; furosemide 20 mg Oral tab 1 tab once daily [Active]; isosorbide mononitrate 120 mg Oral Tb24 1 tab once daily [Active]; Januvia 50 mg Oral tab 1 tab once daily [Active]; potassium chloride 10 mEq Oral TbER 1 tab once daily [Active]; - PMHx: 01:32 CAD; cardiac arrest; CHF; chronic kidney disease; Chronic pain; Diabetes - IDDM; High kd3 Cholesterol; Hypertension; Myocardial infarction; - PSHx: 01:32 4 heart stents; kd3 - Immunization history:: Adult Immunizations up to date, Client reports receiving the 2nd dose of the Covid vaccine. - Social history:: Smoking status: Patient denies any tobacco usage or history of. ROS: 01:46 Constitutional: Negative for fever, chills, and weight loss, Eyes: Negative for injury, kdr pain, redness, and discharge, ENT: Negative for injury, pain, and discharge, Neck: Negative for injury, pain, and swelling, Cardiovascular: Negative for chest pain, palpitations, and edema, Respiratory: Negative for shortness of breath, cough, wheezing, and pleuritic chest pain, Abdomen/GI: Negative for abdominal pain, nausea, vomiting, diarrhea, and constipation, : Negative for injury, bleeding, discharge, and swelling, MS/Extremity: Negative for injury and deformity, Skin: Negative for injury, rash, and discoloration, Neuro: Negative for headache, weakness, numbness, tingling, and seizure activity. Psych: Negative for depression, anxiety, suicide ideation, homicidal ideation, and hallucinations, Allergy/Immunology: Negative for hives, rash, and allergies, Hematologic/Lymphatic: Negative for swollen nodes, abnormal bleeding, and unusual bruising. 01:46 Endocrine: Positive for Elevated blood sugar. Exam: 01:46 Constitutional: This is a well developed, well nourished patient who is awake, alert, kdr and in no acute distress. Head/Face: Normocephalic, atraumatic. Eyes: Pupils equal round and reactive to light, extra-ocular motions intact. Lids and lashes normal. Conjunctiva and sclera are non-icteric and not injected. Cornea within normal limits. Periorbital areas with no swelling, redness, or edema. Neck: Trachea midline, no thyromegaly or masses palpated, and no cervical lymphadenopathy. Supple, full range of motion without nuchal rigidity, or vertebral point tenderness. No Meningismus. Chest/axilla: Normal chest wall appearance and motion. Nontender with no deformity. No lesions are appreciated. Cardiovascular: Regular rate and rhythm with a normal S1 and S2. No gallops, murmurs, or rubs. Normal PMI, no JVD. No pulse deficits. Respiratory: Lungs have equal breath sounds bilaterally, clear to auscultation and percussion. No rales, rhonchi or wheezes noted. No increased work of breathing, no retractions or nasal flaring. Abdomen/GI: Soft, non-tender, with normal bowel sounds. No distension or tympany. No guarding or rebound. No evidence of tenderness throughout. Back: No spinal tenderness. No costovertebral tenderness. Full range of motion. Skin: Warm, dry with normal turgor. Normal color with no rashes, no lesions, and no evidence of cellulitis. MS/ Extremity: Pulses equal, no cyanosis. Neurovascular intact. Full, normal range of motion. Neuro: Awake and alert, GCS 15, oriented to person, place, time, and situation. Cranial nerves II-XII grossly intact. Motor strength 5/5 in all extremities. Sensory grossly intact. Cerebellar exam normal. Normal gait. Psych: Awake, alert, with orientation to person, place and time. Behavior, mood, and affect are within normal limits. Vital Signs: 01:28 BP 158 / 81; Pulse 107; Resp 20; Temp 98.4(O); Pulse Ox 99% on R/A; Pain 9/10; kd3 03:55 BP 131 / 78; Pulse 94; Resp 16; Pulse Ox 95% ; kd3 MDM: 01:45 Patient medically screened. kdr 01:46 Data reviewed: vital signs, nurses notes, lab test result(s), radiologic studies. kdr Counseling: I had a detailed discussion with the patient and/or guardian regarding: the historical points, exam findings, and any diagnostic results supporting the discharge/admit diagnosis, lab results, radiology results, the need for outpatient follow up. 01/22 01:44 Order name: CBC with Diff kdr 01/22 01:44 Order name: Chem 7 kdr 01/22 01:47 Order name: Glucose, Ancillary Testing EDMS 01/22 02:01 Order name: COVID-19 SARS RT PCR (Document "Date of Onset" if Symptomatic) kd3 01/22 03:57 Order name: Glucose, Ancillary Testing EDMS 01/22 02:20 Order name: 60g Consistent Carbohydrate (ADA 1800/1999) EDMS 01/22 02:30 Order name: Social Service Consult EDMS Administered Medications: 01:55 Drug: Tylenol #3 (300 mg-30 mg) 1 tablet Route: PO; kd3 03:47 Follow up: Response: Pain is decreased kd3 01:55 Drug: Insulin Regular Human 8 units {Co-Signature: sm5 (Vanessa Batres RN).} Route: IVP; kd3 Site: right forearm; 03:47 Follow up: Response: No adverse reaction kd3 Point of Care Testing: Blood Glucose: 01:46 Blood Glucose: 401 mg/dL; sm5 Ranges: Critical Glucose Levels:Adult <50 mg/dl or >400 mg/dl <40 mg/dl or >180 mg/dl Disposition Summary: 01/22/22 01:45 Hospitalization Ordered Hospitalization Status: Observation kdr Provider: Sukhwinder Mcclendon Location: Telemetry/MedSurg (observation) kdr Condition: Fair kdr Problem: an acute exacerbation kdr Symptoms: have improved kdr Bed/Room Type: Standard kdr Room Assignment: 223(01/22/22 03:36) cg Diagnosis - Hyperglycemia, unspecified - Poorly controlled (400) kdr - Low back pain - Poorly controlled (second visit in 2 days for same problem) kdr Forms: - Medication Reconciliation Form kdr - SBAR form kdr Signatures: Dispatcher [employer] [facility] Esteban Martinez MD MD kdr Kerry Brown, RN RN cg Priya Hernandez RN RN kd3 Vanessa Batres RN sm5 Corrections: (The following items were deleted from the chart) 03:36 01:45 kdr cg
[2022-01-22] MEDS ORDERED: CODEINE 30MG/APAP 300MG TAB ONE (01:52)
[2022-01-22] MEDS ORDERED: INSULIN -REGULAR HUMAN 50 UNIT/0.5 ML ML ONE (01:53)
[2022-01-22 02:04] LABS: Absolute Lymphocytes (CBC) 1.5 K/uL (0.7-4.9); Hematocrit 36.5 % (39.6-49.0); MPV 8.4 fL (7.6-11.3); RBC Red Blood Cell Count 3.97 M/uL (4.33-5.43)
[2022-01-22] MEDS ORDERED: MORPHINE 4 MG/ML SYR IV PRN (02:18)
[2022-01-22] MEDS ORDERED: ONDANSETRON 4 MG/2 ML VIAL IV PRN (02:18)
--- NOTE | 2022-01-22 02:25 | P.HP ---
Certification for Inpatient Patient admitted to: Observation With expected LOS: <2 Midnights Patient will require the following post-hospital care: Home Health Services (Patient states he needs someone at home with him. He forgets to take his medications because of his back pain) Practitioner: I am a practitioner with admitting privileges, knowledge of patient current condition, hospital course, and medical plan of care. Services: Services provided to patient in accordance with Admission requirements found in Title 42 Section 412.3 of the Code of Federal Regulations Patient History Date of Service: 01/22/22 Primary Care Provider: None Reason for admission: Hyperglycemia, back pain History of Present Illness: Patient is an 81-year-old male with CAD with former MIs and stents, hypertension, CHF, CKD, insulin-dependent diabetes, hyperlipidemia who presented to the ED with complaints of severe lower back pain. Patient was in the ED last night with the same complaints and was discharged with a prescription for tramadol. Patient reports [facility] would not fill his prescription due to some discrepancy. His pain was not improving so he came back. Patient was given Tylenol 3 in the ED and his blood sugar was found to be 400. Patient reports his blood sugar usually runs in the 200s but he has been forgetting to take his insulin because his back has been hurting so bad. Patient does not remember an incident where he injured his back. He states his back pain is along his belt line on the left side and radiates down his leg. Rates the pain at a 7/10 upon my assessment after the Tylenol 3. Patient denies any bowel or bladder incontinence. He does not see a primary care doctor but does follow with Dr. Fabian for cardiology. ED wishes to admit patient for pain control back pain and treatment of acute hyperglycemia. Allergies No Known Allergies Allergy (Verified 03/10/20 01:08) Home medications list reviewed: Yes Home Medications: Atorvastatin Calcium 1 tab PO BEDTIME 03/10/20 Donepezil HCl [Aricept] 5 mg PO BEDTIME 03/17/20 Furosemide [Lasix*] 20 mg PO DAILY 03/17/20 Isosorbide Mononitrate [Isosorbide Mononitrate ER] 120 tab PO DAILY 09/24/20 Lisinopril [Zestril] 5 mg PO DAILY 09/24/20 Potassium Chloride [Klor-Con 10] 10 meq PO DAILY 11/30/21 Trazodone [Desyrel*] 50 mg PO BEDTIME PRN 11/30/21 Vitamin B Complex [B Complex] 1 each PO DAILY 11/30/21 Codeine/APAP [Tylenol #3*] 1 tab PO BID PRN #10 tab 12/04/21 Metoprolol Tartrate [Lopressor*] 25 mg PO BID 6AM 6PM 12/18/21 Multivitamin with Minerals [One Daily Plus Minerals] 1 each PO DAILY 12/18/21 Sitagliptin Phosphate [Januvia] 50 mg PO DAILY 12/18/21 - Past Medical/Surgical History Diabetic: Yes -: Chronic diastolic congestive heart failure -: HTN -: DM IDDM -: Heart Stents -: Solitary kidney -: Chronic renal failure -: CAD -: stents -: heart cath. Psychosocial/ Personal History: Patient is , lives at home alone - Family History Father -: Heart disease Notes: [place] - Social History Smoking Status: Former smoker Alcohol use: No CD- Drugs: No Caffeine use: No Place of Residence: Home Review of Systems Musculoskeletal: Back Pain Physical Examination - Physical Exam General: Alert, In no apparent distress HEENT: Atraumatic, PERRLA, Mucous membr. moist/pink, EOMI, Sclerae nonicteric Neck: Supple, 2+ carotid pulse no bruit, No LAD, Without JVD or thyroid abnormality Respiratory: Clear to auscultation bilaterally, Normal air movement Cardiovascular: Regular rate/rhythm, Normal S1 S2 Gastrointestinal: Normal bowel sounds, No tenderness Musculoskeletal: No tenderness Integumentary: No rashes Neurological: Normal speech, Normal tone, Normal affect - Studies Laboratory Data (last 24 hrs) 01/22/22 01:47: Sodium 135 L, Potassium 4.0, BUN 22 H, Creatinine 1.42 H, Glucose 346 H Assessment and Plan - Problems (Diagnosis) (1) Hyperglycemia due to type 2 diabetes mellitus Current Visit: Yes Status: Acute Qualifiers: Diabetes mellitus exterminator helper insulin use: with exterminator helper use Qualified Code(s): E11.65 - Type 2 diabetes mellitus with hyperglycemia; Z79.4 - exterminator (current) use of insulin (2) Back pain of lumbosacral region with sciatica Current Visit: Yes Status: Acute (3) Chronic kidney disease, stage 3 Current Visit: No Status: Chronic Qualifiers: Chronic kidney disease stage 3 subtype: stage 3a (GFR 45-59) Qualified Code(s): N18.31 - Chronic kidney disease, stage 3a (4) Coronary artery disease Current Visit: No Status: Chronic Qualifiers: Coronary Disease-Associated Artery/Lesion type: unspecified vessel or lesion type [place] vs. transplanted heart: [place] heart Associated angina: without angina Qualified Code(s): I25.10 - Atherosclerotic heart disease of [place] coronary artery without angina pectoris (5) HLD (hyperlipidemia) Current Visit: No Status: Chronic Qualifiers: Hyperlipidemia type: mixed hyperlipidemia Qualified Code(s): E78.2 - Mixed hyperlipidemia (6) Solitary kidney Current Visit: No Status: Chronic - Plan -Patient will be admitted for management of intractable back pain. Morphine as needed -Patient will likely need social media job titles consult for possible home health as he is having difficulty taking care of himself. He lives at home alone with 2 dogs and is . States his children are busy with their jobs -Patient is an insulin-dependent type 2 diabetic and has not been taking his insulin as he should be. His blood sugar was 400 in the ED. We will start patient on a moderate sliding scale insulin with Accu-Cheks achs -We will continue home medications as necessary -Likely DC tomorrow DVT PPx: Lovenox Code: Full Discharge Plan: Home Plan to discharge in: 24 Hours - Advance Directives Does patient have a Living Will: No Does patient have a Durable POA for Healthcare: No - Code Status/Comfort Care Code Status Assessed: Yes (Full) Critical Care: No Time Spent Managing Pts Care (In Minutes): 70
[2022-01-22 04:10] VITALS: O2SAT 95
[2022-01-22 04:30] VITALS: BMI 27.0
[2022-01-22] MEDS: ENOXAPARIN 40 MG/0.4 ML SQ SCH (09:06)
[2022-01-22] MEDS: INSULIN -REGULAR HUMAN 50 UNIT/0.5 ML ML SQ SCH ×4 (09:06→20:26)
[2022-01-22] MEDS: HYDROCODONE/APAP 5/325 MG TAB PO PRN ×3 (09:42→23:11)
--- NOTE | 2022-01-22 13:40 | P.PN ---
Date of Service: 01/22/22 Patient seen and examined. He is complaining of uncontrolled back pain. He has been ambulating with a walker. Blood sugar readings have improved. Diagnosis Lumbar degenerative disease. Sciatica Plan: Patient with prior lumbar vertebrae surgery. Pain management with oral [place], IV morphine. We will add gabapentin. Will recommend outpatient follow-up with pain management. PT to evaluate. Blood sugar management with insulin sliding scale and Januvia.
[2022-01-22] MEDS ORDERED: CYCLOBENZAPRINE 10 MG TAB PO PRN (13:43)
[2022-01-22] MEDS ORDERED: TRAZODONE 50 MG TABLET PO PRN (13:43)
[2022-01-22] MEDS: GABAPENTIN 100 MG CAP PO SCH (20:26)
[2022-01-22] MEDS: HYDRALAZINE HCL 10 MG TABLET PO PRN (20:44)
[2022-01-22] MEDS ORDERED: ATORVASTATIN 40 MG TAB PO SCH (21:00)
[2022-01-22] MEDS ORDERED: DONEPEZIL HCL 5 MG TAB PO SCH (21:00)
[2022-01-23 04:22] LABS: Potassium 3.6 mmol/L (3.5-5.1)
[2022-01-23] MEDS: HYDRALAZINE HCL 10 MG TABLET PO PRN (08:48)
[2022-01-23] MEDS: GABAPENTIN 100 MG CAP PO SCH (08:48)
[2022-01-23] MEDS: ENOXAPARIN 40 MG/0.4 ML SQ SCH (08:48)
[2022-01-23] MEDS: INSULIN -REGULAR HUMAN 50 UNIT/0.5 ML ML SQ SCH ×3 (08:49→15:33)
[2022-01-23] MEDS ORDERED: VITAMIN B COMPLEX 1 CAP PO SCH (09:00)
[2022-01-23] MEDS ORDERED: LIDOCAINE 4% PATCH TOP SCH (09:00)
[2022-01-23] MEDS ORDERED: HOME MED 1 EA UNK (Sitagliptin Phosphate [Januvia] 50 MG Tablet) PO SCH (09:00)
[2022-01-23] MEDS ORDERED: POTASSIUM CL SA 10 MEQ TAB PO SCH (09:00)
[2022-01-23] MEDS ORDERED: ALOGLIPTIN BENZOATE 12.5 MG TABLET PO SCH (09:00)
[2022-01-23] MEDS ORDERED: ISOSORBIDE MONO SR 60 MG TAB PO SCH (09:00)
[2022-01-23] MEDS ORDERED: MULTIVIT W/ MINERAL TAB PO SCH (09:00)
[2022-01-23] MEDS ORDERED: FUROSEMIDE 20 MG TABLET PO SCH (09:00)
--- NOTE | 2022-01-23 15:33 | P.DS ---
Admission Date: 01/22/22 Discharge Date: 01/23/22 Primary Care Provider: None Disposition: DC HOME/HOME HEALTH CARE Discharge Condition: FAIR Reason for Admission: Hyperglycemia, back pain - Problems (1) Back pain of lumbosacral region with sciatica Current Visit: Yes Status: Acute (2) Diabetes mellitus type 2 in nonobese Current Visit: No Status: Chronic (3) HTN (hypertension) Current Visit: No Status: Chronic Qualifiers: Hypertension type: primary hypertension Qualified Code(s): I10 - Essential (primary) hypertension Brief History of Present Illness: Patient is an 81-year-old male with CAD with former MIs and stents, hypertension, CHF, CKD, insulin-dependent diabetes, hyperlipidemia who presented to the ED with complaints of severe lower back pain. Patient was in the ED last night with the same complaints and was discharged with a prescription for tramadol. Patient reports [facility] would not fill his prescription due to some discrepancy. His pain was not improving so he came back. Patient was given Tylenol 3 in the ED and his blood sugar was found to be 400. Patient reports his blood sugar usually runs in the 200s but he has been forgetting to take his insulin because his back has been hurting so bad. Patient does not remember an incident where he injured his back. He does not see a primary care doctor but does follow with Dr. Fabian for cardiology. Patient hospitalized for further management. Hospital Course: Patient placed under observation on the medical floor. His pain was managed with oral [place] lidocaine patch and Flexeril and it was better controlled with this regimen. He was ambulating with a walker during the hospital stay. He had hyperglycemia which improved with insulin regimen. Vitals have been stable. Patient is deemed stable for discharge. He is informed to follow-up with a pain specialist for his pain management. He may need intra-articular injection which may serve him better than medications. Vital Signs/Physical Exam: Temp Pulse Resp BP Pulse Ox 98.1 F 58 18 120/72 97 01/23/22 12:00 01/23/22 12:00 01/23/22 12:00 01/23/22 12:00 01/23/22 12:00 General: Alert, In no apparent distress, Oriented x3 HEENT: Normocephalic, Mucous membr. moist/pink, Sclerae nonicteric Neck: Supple, JVD not distended Respiratory: Clear to auscultation bilaterally, Normal air movement Cardiovascular: Regular rate/rhythm, Normal S1 S2 Gastrointestinal: Soft and benign, Non-distended Musculoskeletal: No swelling Integumentary: No rashes Neurological: Other (No focal motor deficit.) Laboratory Data at Discharge: WBC 6.30 K/uL (4.3-10.9) D 01/22/22 01:47 Hgb 12.7 g/dL (13.6-17.9) L 01/22/22 01:47 Hct 36.5 % (39.6-49.0) L 01/22/22 01:47 Plt Count 151 K/uL (152-406) L 01/22/22 01:47 Sodium 136 mmol/L (136-145) 01/23/22 03:30 Potassium 3.6 mmol/L (3.5-5.1) 01/23/22 03:30 BUN 17 mg/dL (7-18) 01/23/22 03:30 Creatinine 1.12 mg/dL (0.55-1.3) 01/23/22 03:30 Glucose 184 mg/dL (74-106) H 01/23/22 03:30 Home Medications: Atorvastatin Calcium 1 tab PO BEDTIME 03/10/20 Donepezil HCl [Aricept] 5 mg PO BEDTIME 03/17/20 Furosemide [Lasix*] 20 mg PO DAILY 03/17/20 Isosorbide Mononitrate [Isosorbide Mononitrate ER] 120 tab PO DAILY 09/24/20 Potassium Chloride [Klor-Con 10] 10 meq PO DAILY 11/30/21 Trazodone [Desyrel*] 50 mg PO BEDTIME PRN 11/30/21 Vitamin B Complex [B Complex] 1 each PO DAILY 11/30/21 Multivitamin with Minerals [One Daily Plus Minerals] 1 each PO DAILY 12/18/21 Sitagliptin Phosphate [Januvia] 50 mg PO DAILY 12/18/21 dexAMETHasone [Dexamethasone] 2 mg PO BID 01/22/22 Cyclobenzaprine HCl [Flexeril] 5 mg PO TID PRN #30 01/23/22 Hydrocodone 5/APAP 325 [[place] 5/325*] 1 tab PO Q6H PRN #30 tab 01/23/22 Lidocaine 4% Patch [Lidoderm 5% Patch*] 1 patch TOP DAILY #30 patch 01/23/22 New Medications: Cyclobenzaprine HCl [Flexeril] 5 mg PO TID PRN #30 PRN Reason: Muscle Spasms Lidocaine 4% Patch [Lidoderm 5% Patch*] 1 patch TOP DAILY #30 patch Hydrocodone 5/APAP 325 [[place] 5/325*] 1 tab PO Q6H PRN #30 tab PRN Reason: Pain Scale 5-7 (Moderate) Diet: AHA Activity: Fall precautions Followup: NONE,NONE [Primary Care Provider] -
[2022-01-23 17:20] VITALS: BP 103/65; TEMP 98.3
== END 2022-01-23 17:08 | disposition home health service (06) ==
LOC: ER 01:24 → ERHOLD 02:41 → 2ND 03:55
PROVIDERS: ADMIT Internal Medicine; ATTEND Internal Medicine
DX: M54.40 Lumbago with sciatica, unspecified side (principal); I13.0 Hypertensive heart and chronic kidney disease with heart failure and stage 1 through stage 4 chronic kidney disease, or unspecified chronic kidney disease; E11.22 Type 2 diabetes mellitus with diabetic chronic kidney disease; E11.65 Type 2 diabetes mellitus with hyperglycemia; N18.31 Chronic kidney disease, stage 3a; I50.32 Chronic diastolic (congestive) heart failure; Q60.0 Renal agenesis, unilateral; E78.5 Hyperlipidemia, unspecified; I25.10 Atherosclerotic heart disease of native coronary artery without angina pectoris; I25.2 Old myocardial infarction; Z95.5 Presence of coronary angioplasty implant and graft; Z79.4 Long term (current) use of insulin; Z87.891 Personal history of nicotine dependence; Z20.822 Contact with and (suspected) exposure to COVID-19
CPT/HCPCS: 36415; 80048; 82947; 85025; 96374; 99285; G0378; G0379; J1650; U0003

== ENCOUNTER 2022-02-25 20:01 | Inpatient (IN) | payer OTHER ==
--- OUTSIDE RECORDS SUMMARY | 2022-02-25 20:15 | XMS REPORT | Continuity of Care Document ---
:1940 Author Organization [facility] t Address [address] [place] [address] Care Team Providers Name Role Phone BETANCOURT Primary Care Physician Unavailable Denny Attending Clinician Unavailable Lester Attending Clinician [...] Unavailbrian AGUILAR Admitting Clinician Unavailable MD LAUREN O. Admitting Clinician Unavailable ALYSSA Admitting Clinician Unavailable Alyssa WOOTEN Admitting Clinician Justina Flores MD Admitting Clinician Justina FLORES Admitting Clinician Unavailable Sharon HARRY Admitting Clinician Unavailable Clair Admitting Clinician Unavailable Julio Cesar WOOTEN Admitting Clinician JULIO CESAR Admitting Clinician Unavailable Steven WOOTEN Admitting Clinician STEVEN Admitting Clinician Unavailable Payers Payer Name Policy Type Policy Number Effective Date Expiration Date S brian [facility] [id number] 2019 DUAL COMPLETE HMO 00:00:00 [place]ICAID OF [place] [id number] 2018 00:00:00 Problems Condition Condition Condition Status Onset Resolution Last Treating Co mments Source Name Details Category Date Date Treatment Clinician Date Unstable Unstable Disease Active Unive rs angina angina 5-07 ity of 00:00: [place] [facility] ALBA (acute ALBA (acute Disease Active 2020 U nivers kidney kidney 4-21 ity of injury) injury) 00:00: [place] [facility] Chest pain Chest pain Disease Active U nivers 4-21 ity of 00:00: [place] [facility] Chest pain Chest pain Disease Active U 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 4-15 it y of 00:00: [place] [facility] 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 00:00: [place] and and 00 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 2018-11 U nivers lobe lobe 1-06 ity of pneumonia pneumonia 00:00: [facility] 00 Medical Branch PNA PNA Disease Active 2018-11 Univers (pneumonia (pneumonia 0-25 it y of ) ) 00:00: [place] [facility] Acute on Acute on Disease Active 2018-11 Unive rs chronic chronic 0-25 ity of combined combined 00:00: [place] systolic systolic 00 Medica l and and Branch 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 Dyspnea Dyspnea Disease Active 2018-11 Univers 0-23 ity of 00:00: [place] 00 Medical Branch CHF CHF Disease Active Univers exacerbati exacerbati 2-17 it y of on on 00:00: [place] 00 Medical Branch Essential Essential Disease Active Uni vers hypertensi hypertensi 2-17 it y of on on 00:00: [place] [facility] 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 00:00: [place] without without 00 Medical complicati complicati Br anch on, on, without without long-term long-term current current use of use of insulin insulin CHF CHF Disease Active Univers exacerbati exacerbati 2-17 it y of on on 00:00: [place] 00 Medical Branch Acute on Acute on [...] 00:00: [place] involving involving 00 Medi [place] 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 00:00: [place] disease disease 00 Medical Branch Coronary Coronary Disease Active Unive rs artery artery 1-27 ity of disease disease 00:00: [place] involving involving 00 Medi birdie [place] 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 [...] Allergie - Clear s 00:00: [place] 00 [facility] NO KNOWN Drug Active Univers ALLERGIE Class ity of S [facility] Social History Social Habit Start Date Stop Date Quantity Comments Source Exposure to Yes University of SARS-CoV-2 (event) [facility] History of tobacco User of Univer sity of use smokeless [facility] tobacco [place] Alcohol intake 2021-10-31 2021-10-31 Current University of 00:00:00 00:00:00 non-drinker of [facility] alcohol [place] (finding) Cigarettes smoked 2018-12-11 2018-12-11 Univers ity of current (pack per 00:00:00 00:00:00 [facility] ) - Reported Branch Cigarette 2018-12-11 2018-12-11 University of pack-years 00:00:00 00:00:00 [facility] Tobacco use and 2018-12-11 2018-12-11 Former user Universi ty of exposure 00:00:00 00:00:00 [facility] Sex [birth year] At [birth year] Universit y of 00:00:00 00:00:00 [facility] Smoking Status Start Date Stop Date Source Former smoker 2018-12-11 00:00:00 2018-12-11 00:00:00 [facility] Medications Ordered Filled Start Stop Current Ordering Indication Dosage Frequency Signature Comments Components Source Medication Medication Date Date Medication? Clinician (SIG) Name Name aspirin 81 2020-11- No [id number] 81mg Take 1 Univers mg chewable -12-04 tablet by it y of tablet 00:00: 05:59 mouth [place] 00 :00 daily for Medical 30 days. Branch clopidogreL 2020-11- No [id number] 75mg Take 1 Univers 75 mg -12-04 tablet by ity of tablet 00:00: 05:59 mouth [place] 00 :00 daily for Medical 30 days. Branch furosemide 2020-11- No [id number] 20mg Take 1 Univers 20 mg -12-04 tablet by ity of tablet 00:00: 05:59 mouth [place] 00 :00 daily for Medical 30 days. Branch aspirin 81 2020-11- No [id number] 81mg Take 1 Univers mg chewable 2-12-04 tablet by it y of tablet 00:00: 05:59 mouth [place] 00 :00 daily for Medical 30 days. Branch clopidogreL 2020-11- No [id number] 75mg Take 1 Univers 75 mg 2-12-04 tablet by ity of tablet 00:00: 05:59 mouth [place] 00 :00 daily for Medical 30 days. Branch furosemide 2020-11- No [id number] 20mg Take 1 Univers 20 mg 01-04 tablet by ity of tablet 00:00: 05:59 mouth [place] 00 :00 daily for Medical 30 days. Branch aspirin 81 2020-11- No [id number] 81mg Take 1 Univers mg chewable 01-04 tablet by it y of tablet 00:00: 05:59 mouth [place] 00 :00 daily for Medical 30 days. Branch clopidogreL 2020-11- No [id number] 75mg Take 1 Univers 75 mg 01-04 tablet by ity of tablet 00:00: 05:59 mouth [place] 00 :00 daily for Medical 30 days. Branch furosemide 2020-11- No [id number] 20mg Take 1 Univers 20 mg 01-04 [...] at 0830, Until Discontinu ed, Routine isosorbide 2020-11 No 120mg Take 120 U nivers mononitrate 2-18 12-18 mg by ity of 120 mg 24 14:14: 00:00 mouth [place] hr tablet 53 :00 daily. Medical Branch LISINOPRIL 2020-11 No 5mg Take 5 mg U nivers ORAL 2-18 12-18 by mouth ity of 14:14: 00:00 daily. [place] 53 :00 Medical Branch isosorbide 2020-11 Yes 60mg 60 mg, Unive rs mononitrate 2-18 Oral, BID, it y of (IMDUR) 24 14:00: First dose [place] hr tablet 00 (after Medical 60 mg last Branch modificati on) on 11/02/21 at 0800, Until Discontinu ed, Routine QUEtiapine 2020-11 Yes [id number] 25mg Take 1 Univers 25 mg 2-18 tablet by ity of tablet 00:00: mouth at [place] [address] bedtime as Medical needed Branch (agitation /insomnia) . QUEtiapine 2020-11 Yes [id number] 25mg Take 1 Univers 25 mg 2-18 tablet by ity of tablet 00:00: mouth at [place] [address] bedtime as Medical needed Branch (agitation /insomnia) . QUEtiapine 2020-11 Yes [id number] 25mg Take 1 Univers 25 mg 2-18 tablet by ity of tablet 00:00: mouth at [place] [address] bedtime as Medical needed Branch (agitation /insomnia) . isosorbide 2020-11- No [id number] 60mg Take 1 Univers mononitrate 2-18 01-18 tablet by it y of 60 mg 24 hr 00:00: 05:59 mouth 2 [place] tablet 00 :00 (two) Medical times Branch daily for 30 days. metoprolol 2020-11- No [id number] 37.5mg Take 1.5 Univers succinate 2-18 -18 tablets by ity of XL 25 mg 24 00:00: 05:59 mouth 2 [place] tablet 00 :00 (two) Medical times Branch daily for 30 days. isosorbide 2020-11- No [id number] 60mg Take 1 Univers mononitrate 2-18 01-18 tablet by it y of 60 mg 24 hr 00:00: 05:59 mouth 2 [place] tablet 00 :00 (two) Medical times Branch daily for 30 days. metoprolol 2020-11- No [id number] 37.5mg Take 1.5 Univers succinate 2-18 -18 tablets by ity of XL 25 mg 24 00:00: 05:59 mouth 2 [place] tablet 00 :00 (two) Medical times Branch daily for 30 days. isosorbide 2020-11- No [id number] 60mg Take 1 Univers mononitrate 01-03 tablet by it y of 60 mg 24 hr 00:00: 05:59 mouth 2 [place] tablet 00 :00 (two) Medical times Branch daily for 30 days. metoprolol 2020-11- No [id number] 37.5mg Take 1.5 Univers succinate 01-03 tablets [...] First dose [place] mg 00 on [facility] Medical 10/31/21 Branch at 2100, Until Discontinu ed, Routine clopidogreL 2020-11 Yes 75mg 75 mg, Univ ers (PLAVIX) - Oral, ity of tablet 75 23:30: DAILY, [place] mg 00 First dose Medical on Madhavi Branch 10/31/21 at 1730, Until Discontinu ed, Routine sulfur 2020-11- No [id number] 5mL 5 mL, Unive rs hexafluorid 01-01 Intravenou i ty of e microsphr 17:00: 17:00 s, ONCE, 1 [place] (LUMASON) 00 :00 dose, On Medica l injection 5 [facility] Branch mL 10/31/21 at 1100, Routine
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 Restricted medication : HOARITUBRANDEN isosorbide 2020-11- No 120mg 120 mg, Un mel mononitrate 01-01 Oral, ity of (IMDUR) 24 15:00: 14:16 DAILY, [place] hr tablet 00 :38 First dose Medi birdie 120 mg on Madhavi Branch 10/31/21 at 0900, Until Discontinu ed, Routine Sliding 2020-11 Yes Subcutaneo [facility] ers Scale - us, AC+HS, ity of Insulin-Reg 13:30: First dose [place] ular + Fsbg 00 on [facility] Medica l Testing 10/31/21 Branch at 0730, Until Discontinu ed, Routine enoxaparin 2020-11- No 1mg/kg 80 mg Uni vers (LOVENOX) 01-01 (rounded ity o f injection 09:00: 14:17 from 78 mg [place] 80 mg 00 :35 = 1 mg/kg Medical ?78 kg), Branch Subcutaneo , Q24H, First dose on Madhavi 10/31/21 at 0300, Until Discontinu ed, Routine aspirin 2020-11- No 325mg 325 mg, Unive rs tablet 325 01-01 Oral, ity of mg 08:45: 08:15 ONCE, 1 [place] 00 :00 dose, On Medical Madhavi Branch [...] IV ity of (D50W) 08:16: Push, PRN, [place] injection 14 Starting Medica l 25 mL on Madhavi Branch 10/31/21 at 0216, Until Discontinu ed, ADAMA, Blood Glucose < or = 70 mg/dL and patient is unable to swallow or has mental status changes. morpHINE 2020-11 No 2mg 2 mg, Slow Un mel injection 2 -16 12-17 IV Push, ity of mg 07:36: 05:31 [place] 09 :07 Starting Medical on Madhavi [...] 2-16 IV Push, ity of (PF)) 05:32: [place], [place] injection 4 10 Starting Medi birdie mg on Thu Branch 10/30/21 at 2332, Until Discontinu ed, Routine, Nausea and Vomiting (N/V) acetaminoph 2020-11 Yes 650mg 650 mg, Un mel en 2-16 Oral, ity of (TYLENOL) 05:31: Q6HPRVelpen, [place] tablet 650 56 Starting Medic al mg on Wed Branch 10/30/21 at 2331, Until Discontinu ed, Routine, Pain (scale 1-3) acetaminoph 2020-11 Yes [id number] 1{tbl} 1 tablet, Univers en-codeine 2-16 Oral, ity of (TYLENOL 05:29: Q6HPRN, [place] #3) 300-30 29 Starting Medic al mg [...] ity of mg 23:15: 22:23 ONCE, 1 [place] 00 :00 dose, Madhav[facility] Medical 04/25/21 at [...] at Branch 1400, ADAMA cyclobenzap 0 Yes [id number] 5mg Take 1 Univers rine 5 mg 6-10 tablet by ity o f tablet 00:00: mouth 3 [place] 00 (three) Medical times Branch daily. cyclobenzap 2020-0 Yes [id number] 5mg Take 1 Univers rine 5 mg 6-10 tablet by ity o f tablet 00:00: mouth 3 [place] 00 (three) Medical times Branch daily. cyclobenzap 2020-0 Yes [id number] 5mg Take 1 Univers rine 5 mg [...] left sided low back pain cyclobenzap Yes [id number] 5mg Take 1 Univers rine 5 mg [...] left sided low back pain cyclobenzap Yes [id number] 5mg Take 1 Univers rine 5 mg [...] Discontinu ed, Routine aspirin 81 2020-0 Yes [id number] 81mg Take 1 U nivers mg chewable 5-09 tablet by ity of tablet 00:00: mouth [place] 00 daily with Medical breakfast. Branch furosemide 2020-0 Yes [id number] 20mg Take 1 U nivers 20 mg 5-09 tablet by ity of tablet 00:00: mouth [place] 00 daily. Medical Branch aspirin 81 2020-0 Yes [id number] 81mg Take 1 U nivers mg chewable 5-09 tablet by ity of tablet 00:00: mouth [place] 00 daily with Medical breakfast. Branch furosemide 2020-0 Yes [id number] 20mg Take 1 U nivers 20 mg 5-09 tablet by ity of tablet 00:00: mouth [place] 00 daily. [facility] Branch aspirin 81 2020-0 Yes [id number] 81mg Take 1 U nivers mg chewable 5-09 tablet by ity of tablet 00:00: mouth [place] 00 daily with Medical breakfast. Branch furosemide 2020-0 Yes [id number] 20mg Take 1 U nivers 20 mg 5-09 tablet by ity of tablet 00:00: mouth [place] 00 daily. Medical Branch aspirin 81 2020-0 Yes [id number] 81mg Take 1 U nivers mg chewable 5-09 tablet by ity of tablet 00:00: mouth [place] 00 daily with Medical breakfast. Branch furosemide 2020-0 Yes [id number] 20mg Take 1 U nivers 20 mg 5-09 tablet by ity of tablet 00:00: mouth [place] 00 daily. Medical Branch aspirin 81 2020-0 Yes [id number] 81mg Take 1 U nivers mg chewable 5-09 tablet by ity of tablet 00:00: mouth [place] 00 daily with Medical breakfast. Branch furosemide 2020-0 Yes [id number] 20mg Take 1 U nivers 20 mg 5-09 tablet by ity of tablet 00:00: mouth [place] 00 daily. Medical Branch aspirin 81 2020-0 Yes [id number] 81mg Take 1 U nivers mg chewable 5-09 tablet by ity of tablet 00:00: mouth [place] 00 daily with Medical breakfast. Branch furosemide 2020-0 Yes [id number] 20mg Take 1 U nivers 20 mg 5-09 tablet by ity of tablet 00:00: mouth [place] 00 daily. Medical Branch aspirin 81 2020-0 Yes [id number] 81mg Take 1 U nivers mg chewable 5-09 tablet by ity of tablet 00:00: mouth [place] 00 daily with Medical breakfast. Branch furosemide 2020-0 Yes [id number] 20mg Take 1 U nivers 20 mg 5-09 tablet by ity of tablet 00:00: mouth [place] 00 daily. Medical Branch aspirin 81 2020-0 Yes [id number] 81mg Take 1 U nivers mg chewable 5-09 tablet by ity of tablet 00:00: mouth [place] 00 daily with Medical breakfast. Branch furosemide 2020-0 Yes [id number] 20mg Take 1 U nivers 20 mg 5-09 tablet by ity of tablet 00:00: mouth [place] 00 daily. Medical Branch aspirin 81 2020-0 Yes [id number] 81mg Take 1 U nivers mg chewable 5-09 tablet by ity of tablet 00:00: mouth [place] 00 daily with Medical breakfast. Branch furosemide 2020-0 Yes [id number] 20mg Take 1 U nivers 20 mg 5-09 tablet by ity of tablet 00:00: mouth [place] 00 daily. Medical Branch aspirin 81 2020-2020- No [id number] 81mg Take 1 Univers mg chewable 03-24 tablet by it y of tablet 00:00: 00:00 mouth [place] 00 :00 daily with Medical breakfast. Branch furosemide 2020- No [id number] 20mg Take 1 Univers 20 mg 03-24 tablet by ity of tablet 00:00: 00:00 mouth [place] 00 :00 daily. Medical Branch isosorbide 2019-2019- No [id number] 90mg Take 3 Univers mononitrate 03-24-08 tablets by i ty of 30 mg 24 hr 00:00: 00:00 [place] tablet 00 :00 daily. Medical Branch isosorbide 2019-2019- No [id number] 90mg Take 3 Univers mononitrate 03-24-08 tablets by i ty of 30 mg 24 hr 00:00: 00:00 [place] tablet 00 :00 daily. Medical Branch maalox/lido 2019-0 2020- No 5mL 5 mL, [facility] 2 03-23-08 Oral, ity of %viscous 20:45: 20:56 ONCE, 1 [place] 1:1 00 :00 dose, Fri Medical suspension 03/23/20 at [facility] (COMPOUNDED 1545, ) Routine maalox/lido 2020-0 2020- No 5mL 5 mL, [facility] 2 03-23 05-08 Oral, ity of %viscous 20:45: 20:56 ONCE, 1 [place] 1:1 00 :00 dose, Fri Medical suspension 03/23/20 at [facility] (COMPOUNDED 1545, ) Routine [...] IV Push, ity of mg 07:59: Q4HPRN, [place] [address] Starting Medical Thu03/23/20 Branch at 0259, Until Discontinu ed, Routine, Chest pain morpHINE 2020-0 Yes 2mg 2 mg, Slow Uni vers injection 2 03-23 IV Push, ity of mg 07:59: Q4HPRN, [place] [address] Starting Medical [facility] 03/23/20 Branch at 0259, Until Discontinu [...] 40 mEq 00 :00 dose, Fri [facility] 03/23/20 at Branch 0245, Routine heparin 2020-0 [...] No Take by U nivers ann, 03-23 05-07 mouth. ity of Vitamin D3, 04:01: 00:00 [...] 03-23 Oral, ity of (TYLENOL) 02:51: Q6HPRN, [place] tablet 650 29 Starting Medic al mg [facility] 03/22/20 Branch at 2151, Until Discontinu ed, Routine, Pain (scale 1-3) acetaminoph 2020-0 Yes 650mg 650 mg, Un mel en 03-23 Oral, ity of (TYLENOL) 02:51: Q6HPRN, [place] tablet 650 29 Starting Medic al mg [facility] 03/22/20 Branch at 2151, Until Discontinu ed, Routine, Pain (scale 1-3) nitroglycer 2020-0 Yes .4mg 0.4 mg, Uni vers in 03-23 Sublingual ity of (NITROSTAT) 02:38: , Q5MIN [place] as sublingual 00 PRN, 3 Medical tablet 0.4 doses, Branch mg Starting [facility] 03/22/20 at 2138, Until Discontinu ed, ADAMA, Chest pain nitroglycer 2020-0 Yes .4mg 0.4 mg, Uni vers in 03-23 Sublingual ity of (NITROSTAT) 02:38: , Q5MIN [place] as sublingual 00 PRN, 3 Medical tablet 0.4 doses, Branch mg Starting [facility] 03/22/20 at 2138, Until Discontinu ed, [...] dose, [facility] 03/22/20 at Branch 2145, ADAMA isosorbide 2020-0 Yes [id number] 90mg Take 1.5 Univers mononitrate 5-08 tablets by it y of 60 mg 24 hr 00:00: mouth [place] tablet 00 daily. [facility] isosorbide 2020-0 Yes [id number] 90mg Take 1.5 Univers mononitrate 5-08 tablets by it y of 60 mg 24 hr 00:00: mouth [place] tablet 00 daily. [facility] isosorbide 2020-0 Yes [id number] 90mg Take 1.5 Univers mononitrate 5-08 tablets by it y of 60 mg 24 hr 00:00: mouth [place] tablet 00 daily. [facility] isosorbide 2020-0 Yes [id number] 90mg Take 1.5 Univers mononitrate 5-08 tablets by it y of 60 mg 24 hr 00:00: mouth [place] tablet 00 daily. [facility] isosorbide 2020-0 Yes [id number] 90mg Take 1.5 Univers mononitrate 5-08 tablets by it y of 60 mg 24 hr 00:00: mouth [place] tablet 00 daily. [facility] isosorbide 2020-0 Yes [id number] 90mg Take 1.5 Univers mononitrate 5-08 tablets by it y of 60 mg 24 hr 00:00: mouth [place] tablet 00 daily. [facility] isosorbide 2020-0 Yes [id number] 90mg Take 1.5 Univers mononitrate 5-08 tablets by it y of 60 mg 24 hr 00:00: mouth [place] tablet 00 daily. [facility] isosorbide 2020-0 Yes [id number] 90mg Take 1.5 Univers mononitrate 5-08 tablets by it y of 60 mg 24 hr 00:00: mouth [place] tablet 00 daily. [facility] isosorbide 2020-0 Yes [id number] 90mg Take 1.5 Univers mononitrate 5-08 tablets by it y of 60 mg 24 hr 00:00: mouth [place] tablet 00 daily. [facility] isosorbide 2020-0 2021- No [id number] 90mg Take 1.5 Univers mononitrate 5-08 12-18 tablets by i ty of 60 mg 24 hr 00:00: 00:00 [place] tablet 00 :00 daily. Medical Branch acetaminoph 2020-0 2020- No [id number] 975mg Take 3 Univers en 325 mg 5-08 05-19 tablets by ity of tablet 00:00: 04:59 mouth [place] 00 :00 every 8 Medical (eight) Branch hours for 10 days. acetaminoph 2020-0 2020- No [id number] 975mg Take 3 Univers en 325 mg 5-08 05-19 tablets by ity of tablet 00:00: 04:59 mouth [place] 00 :00 every 8 Medical (eight) Branch hours for 10 days. acetaminoph 2020-0 2020- No [id number] 975mg Take 3 Univers en 325 mg 5-08 05-19 tablets by ity of tablet 00:00: 04:59 mouth [place] 00 :00 every 8 Medical (eight) Branch hours for 10 days. acetaminoph 2020-0 2020- No [id number] 975mg Take 3 Univers en 325 mg 5-08 05-19 tablets by ity of tablet 00:00: 04:59 mouth [place] 00 :00 every 8 Medical (eight) Branch hours for 10 days. acetaminoph 2019- 2020- No [id number] 975mg Take 3 Univers en 325 mg 5-08 05-19 tablets by ity of tablet 00:00: 04:59 mouth [place] 00 :00 every 8 Medical (eight) Branch hours for 10 days. lidocaine 5 2019- No [id number] 1{patch Apply 1 Univers % (700 5-08 05-09 } Patch to ity of mg/patch) 00:00: 04:59 area(s) [place] patch 00 :00 once now Medical for 1 Branch dose. lidocaine 5 2019- No [id number] 1{patch Apply 1 Univers % (700 5-08 05-09 } Patch to ity of mg/patch) 00:00: 04:59 area(s) [place] patch 00 :00 once now Medical for 1 Branch dose. lidocaine 5 2020- No [id number] 1{patch Apply 1 Univers % (700 5-08 05-08 } Patch to ity of mg/patch) 00:00: 00:00 area(s) [place] patch 00 :00 once now Medical for 1 Branch dose. lidocaine 5 2019- No [id number] 1{patch Apply 1 Univers % (700 5-08 05-08 } Patch to ity of mg/patch) 00:00: 00:00 area(s) [place] patch 00 :00 once now Medical for 1 Branch dose. glipiZIDE 2019-0 Yes 5mg 5 mg, Univers (GLUCOTROL) 4-23 Oral, ity of tablet 5 mg 14:00: DAILY, [place] 00 First dose Medical on [facility] Branch 03/08/20 at 0900, Until Discontinu ed, Routine spironolact 2020- No [id number] 12.5mg Take 0.5 Univers one 25 mg 4-23 05-24 tablets by ity of tablet 00:00: 04:59 mouth [place] 00 :00 daily for Medical 30 days. Branch spironolact 2020- No [id number] 12.5mg Take 0.5 Univers one 25 mg 4-23 05-24 tablets by ity of tablet 00:00: 04:59 mouth [place] 00 :00 daily for Medical 30 days. Branch spironolact 2020- No [id number] 12.5mg Take 0.5 Univers one 25 mg 4-23 05-24 tablets by ity of tablet 00:00: 04:59 mouth [place] 00 :00 daily for Medical 30 days. Branch spironolact 2019- 2020- No [id number] 12.5mg Take 0.5 Univers one 25 mg 4-23 05-07 tablets by ity of tablet 00:00: 00:00 mouth [place] 00 :00 daily for Medical 30 days. Branch spironolact 2020- No [id number] 12.5mg Take 0.5 Univers one 25 mg 4-23 05-07 tablets by ity of tablet 00:00: 00:00 mouth [place] 00 :00 daily for Medical 30 days. Branch memantine-d 2019- Yes 1{capsu Take 1 U nivers onepezil 03-07 le} capsule by ity o f (NAMZARIC) 23:46: mouth [place] 28-10 mg 10 daily. Medical CSpX Branch folic 2019- Yes Take by Univers acid/vit B - mouth. ity of complex and 23:46: [place] C (B 10 Medical COMPLEX-VIT Branch RAZA C-FOLIC ACID ORAL) Cholecalcif 2019- Yes Take by Un mel ann, 4-22 mouth. ity of Vitamin D3, 23:46: [place] 2,000 unit 10 Medical capsule Branch MULTIVITAMI 2020-0 Yes Take by Un mel N ORAL 4-22 mouth. ity of 23:46: [place] [address] Medical Branch thiamine 2020-0 Yes 100mg Take [...] 4-22 mouth. ity of complex and 23:46: [facility] (B 10 Medical COMPLEX-VIT Branch RAZA C-FOLIC ACID ORAL) Cholecalcif 2020-0 Yes Take by Un mel ann, 4-22 mouth. ity of Vitamin D3, 23:46: [place] 2,000 unit 10 Medical capsule Branch MULTIVITAMI 2020-0 Yes Take by Un mel N ORAL 4-22 mouth. ity of 23:46: [place] [address] Medical Branch thiamine 2020-0 Yes 100mg Take [...] 4-22 mouth. ity of complex and 23:46: [facility] (B 10 Medical COMPLEX-VIT Branch RAZA [...] mouth ity of tablet 20:15: 00:00 daily. [place] 29 :00 Medical Branch atorvastati 2019-0 2020- No 40mg Take 40 mg Univers n 40 mg -07 03-22 by mouth ity of tablet 20:15: 00:00 at [place] 29 :00 bedtime. Medical Branch temazepam 2019-0 Yes 15mg 15 mg, Univer s (RESTORIL) 4-22 Oral, ity of capsule 15 01:55: QHSPRN, [place] mg 38 Starting Medical Tue Branch 03/06/20 at 2055, Until Discontinu ed, Routine, Insomnia isosorbide 2019-0 Yes [id number] 15mg Take 0.5 Univers mononitrate 4-22 tablets by it y of 30 mg 24 hr 00:00: mouth [place] tablet 00 daily. Medical Hold if Branch systolic blood pressure less than 120 Insulin 2019-0 Yes [id number] 10U inject 10 Univers Glargine 4-22 Units ity of 100 unit/mL 00:00: under the [place] (3 mL) 00 skin at Medical injection bedtime. Branch Magnesium 2019-0 Yes [id number] 400mg Take 400 Univers Oxide 420 4-22 mg by ity of mg Tab 00:00: mouth [place] 00 daily. Medical Branch Insulin 2020-0 Yes [id number] 10U inject 10 Univers Glargine 4-22 Units ity of 100 unit/mL 00:00: under the [place] (3 mL) 00 skin at Medical injection bedtime. Branch temazepam 2020-0 Yes [id number] 15mg Take 1 Un mel 15 mg 4-22 capsule by ity of capsule 00:00: mouth at [place] 00 bedtime as Medical needed for Branch Insomnia. furosemide 2020-0 Yes [id number] 40mg Take 1 Univers 40 mg 4-22 tablet by ity of tablet 00:00: mouth [place] 00 every Medical morning Branch and evening. Magnesium 2020-0 Yes [id number] 400mg Take 400 Univers Oxide 420 4-22 mg by ity of mg Tab 00:00: mouth [place] 00 daily. Medical Branch potassium 2020-0 Yes [id number] 20meq Take 20 Univers chloride 20 4-22 mEq by ity of mEq packet 00:00: mouth [place] 00 daily. Medical Take with Branch lasix in the morning isosorbide 2020-0 Yes [id number] 15mg Take 0.5 Univers mononitrate 4-22 tablets by it y of 30 mg 24 hr 00:00: mouth [place] tablet 00 daily. Medical Hold if Branch systolic blood pressure less than 120 Insulin 2020-0 Yes [id number] 10U inject 10 [facility] Glargine 4-22 Units ity of 100 unit/mL 00:00: under the [place] (3 mL) 00 skin at Medical injection bedtime. Branch temazepam 2020-0 Yes [id number] 15mg Take 1 Un mel 15 mg 4-22 capsule by ity of capsule 00:00: mouth at [place] 00 bedtime as Medical needed for Branch Insomnia. furosemide 2020-0 Yes [id number] 40mg Take 1 [facility] 40 mg 4-22 tablet by ity of tablet 00:00: mouth [place] 00 every Medical morning Branch and evening. Magnesium 2020-0 Yes [id number] 400mg Take 400 [facility] Oxide 420 4-22 mg by ity of mg Tab 00:00: mouth [place] 00 daily. Medical Branch potassium 2020-0 Yes [id number] 20meq Take 20 [facility] chloride 20 4-22 mEq by ity of mEq packet 00:00: mouth [place] 00 daily. Medical Take with Branch lasix in the morning isosorbide 2020-0 Yes [id number] 15mg Take 0.5 [facility] mononitrate 4-22 tablets by it y of 30 mg 24 hr 00:00: mouth [place] tablet 00 daily. Medical Hold if Branch systolic blood pressure less than 120 Insulin 2020-0 Yes [id number] 10U inject 10 [facility] Glargine 4-22 Units ity of 100 unit/mL 00:00: under the [place] (3 mL) 00 skin at Medical injection bedtime. Branch temazepam 2020-0 Yes [id number] 15mg Take 1 Un mel 15 mg 4-22 capsule by ity of capsule 00:00: mouth at [place] 00 bedtime as Medical needed for Branch Insomnia. furosemide 2020-0 Yes [id number] 40mg Take 1 [facility] 40 mg 4-22 tablet by ity of tablet 00:00: mouth [place] 00 every Medical morning Branch and evening. Magnesium 2020-0 Yes [id number] 400mg Take 400 [facility] Oxide 420 4-22 mg by ity of mg Tab 00:00: mouth [place] 00 daily. Medical Branch potassium 2020-0 Yes [id number] 20meq Take 20 [facility] chloride 20 4-22 mEq by ity of mEq packet 00:00: mouth [place] 00 daily. Medical Take with Branch lasix in the morning vitamin 2020-0 2020- No [id number] 1000ug Take 1 [facility] B-12 1,000 4-22 07-22 tablet by ity of mcg tablet 00:00: 04:59 mouth [place] 00 :00 daily for Medical 90 days. Branch vitamin 2020-0 2020- No [id number] 1000ug Take 1 [facility] B-12 1,000 4-22 07-22 tablet by ity of mcg tablet 00:00: 04:59 mouth [place] 00 :00 daily for Medical 90 days. Branch vitamin 2020-0 2020- No [id number] 1000ug Take 1 [facility] B-12 1,000 4-22 07-22 tablet by ity of mcg tablet 00:00: 04:59 mouth [place] 00 :00 daily for Medical 90 days. Branch vitamin 2020-0 2020- No [id number] 1000ug Take 1 [facility] B-12 1,000 4-22 07-22 tablet by ity of mcg tablet 00:00: 04:59 mouth [place] 00 :00 daily for Medical 90 days. Branch glipiZIDE 5 2019- 2020- No [id number] 2.5mg Take 0.5 [facility] mg tablet 4- 05-23 tablets by ity of 00:00: 04:59 mouth 2 [place] 00 :00 (two) Medical times Branch daily before breakfast and dinner for 30 days. metoprolol 2019- 2020- No [id number] 25mg Take 1 [facility] succinate 4-22 05-23 tablet by ity of XL 25 mg 24 00:00: 04:59 mouth 2 [place] hr tablet 00 :00 (two) Medical times Branch daily for 30 days. OLANZapine 2019- 2020- No [id number] 2.5mg Take 1 [facility] 2.5 mg 4-22 05-23 tablet by ity of tablet 00:00: 04:59 mouth at [place] 00 :00 bedtime Medical for 30 Branch days. ranolazine 2019- 2020- No [id number] 1000mg Take 2 [facility] 500 mg 12 - 05-23 tablets by ity of hr tablet 00:00: 04:59 mouth [place] 00 :00 every 12 Medical (twelve) Branch hours for 30 days. aspirin 81 2019- 2020- No [id number] 81mg Take 1 [facility] mg chewable 4- 05-23 tablet by it y of tablet 00:00: 04:59 mouth [place] 00 :00 daily with Medical breakfast Branch for 30 days. atorvastati 2019- 2020- No [id number] 40mg Take 1 [facility] n 40 mg 4- 05-23 tablet by ity of tablet 00:00: 04:59 mouth at [place] 00 :00 bedtime Medical for 30 Branch days. glipiZIDE 5 2019- 2020- No [id number] 2.5mg Take 0.5 [facility] mg tablet 4- 05-23 tablets by ity of 00:00: 04:59 mouth 2 [place] 00 :00 (two) Medical times Branch daily before breakfast and dinner for 30 days. metoprolol 2019- 2020- No [id number] 25mg Take 1 [facility] succinate 4-22 05-23 tablet by ity of XL 25 mg 24 00:00: 04:59 mouth 2 [place] hr tablet 00 :00 (two) Medical times Branch daily for 30 days. OLANZapine 2019-0 2020- No [id number] 2.5mg Take 1 [facility] 2.5 mg 4-22 05-23 tablet by ity of tablet 00:00: 04:59 mouth at [place] 00 :00 bedtime Medical for 30 Branch days. ranolazine 2020- 2020- No [id number] 1000mg Take 2 [facility] 500 mg 12 4-22 05-23 tablets by ity of hr tablet 00:00: 04:59 mouth [place] 00 :00 every 12 Medical (twelve) Branch hours for 30 days. aspirin 81 2019- 2020- No [id number] 81mg Take 1 [facility] mg chewable 4-22 05-23 tablet by it y of tablet 00:00: 04:59 mouth [place] 00 :00 daily with Medical breakfast Branch for 30 days. atorvastati 2019- 2020- No [id number] 40mg Take 1 [facility] n 40 mg 4-22 05-23 tablet by ity of tablet 00:00: 04:59 mouth at [place] 00 :00 bedtime Medical for 30 Branch days. glipiZIDE 5 2019- 2020- No [id number] 2.5mg Take 0.5 [facility] mg tablet - 05-23 tablets by ity of 00:00: 04:59 mouth 2 [place] 00 :00 (two) Medical times Branch daily before breakfast and dinner for 30 days. metoprolol 2019- 2020- No [id number] 25mg Take 1 [facility] succinate 4-22 05-23 tablet by ity of XL 25 mg 24 00:00: 04:59 mouth 2 [place] hr tablet 00 :00 (two) Medical times Branch daily for 30 days. OLANZapine 2019- 2020- No [id number] 2.5mg Take 1 [facility] 2.5 mg 4-22 05-23 tablet by ity of tablet 00:00: 04:59 mouth at [place] 00 :00 bedtime Medical for 30 Branch days. ranolazine 2019-0 2020- No [id number] 1000mg Take 2 [facility] 500 mg 12 4-22 05-23 tablets by ity of hr tablet 00:00: 04:59 mouth [place] 00 :00 every 12 Medical (twelve) Branch hours for 30 days. aspirin 81 2019-0 2020- No [id number] 81mg Take 1 [facility] mg chewable 4-22 05-23 tablet by it y of tablet 00:00: 04:59 mouth [place] 00 :00 daily with Medical breakfast Branch for 30 days. atorvastati 2019-0 2020- No [id number] 40mg Take 1 [facility] n 40 mg 03-07-23 tablet by ity of tablet 00:00: 04:59 mouth at [place] 00 :00 bedtime Medical for 30 Branch days. glipiZIDE 5 2019- No [id number] 2.5mg Take 0.5 [facility] mg tablet 03-07-23 tablets by ity of 00:00: 04:59 mouth 2 [place] 00 :00 (two) Medical times Branch daily before breakfast and dinner for 30 days. metoprolol 2019- No [id number] 25mg Take 1 [facility] succinate 03-07-23 tablet by ity of XL 25 mg 24 00:00: 04:59 mouth 2 [place] hr tablet 00 :00 (two) Medical times Branch daily for 30 days. ranolazine 2019- No [id number] 1000mg Take 2 [facility] 500 mg 12 03-07-23 tablets by ity of hr tablet 00:00: 04:59 mouth [place] 00 :00 every 12 Medical (twelve) Branch hours for 30 days. atorvastati 2019-2019- No [id number] 40mg Take 1 [facility] n 40 mg 03-07-23 tablet by ity of tablet 00:00: 04:59 mouth at [place] 00 :00 bedtime Medical for 30 Branch days. furosemide 2019- 2020- No [id number] 40mg Take 1 [facility] 40 mg 03-07-08 tablet by ity of tablet 00:00: 00:00 mouth [place] 00 :00 every Medical morning Branch and evening. aspirin 81 2019-2019- No [id number] 81mg Take 1 [facility] mg chewable -06 04-08 tablet by it y of tablet 00:00: 00:00 mouth [place] 00 :00 daily with Medical breakfast Branch for 30 days. isosorbide 2019- 2020- No [id number] 15mg Take 0.5 [facility] mononitrate 03-07-08 tablets by i ty of 30 mg 24 hr 00:00: 00:00 mouth [place] tablet 00 :00 daily. Medical Hold if Branch systolic blood pressure less than 120 Insulin 2019- 2020- No [id number] 10U inject 10 [facility] Glargine - 05-08 Units ity of 100 unit/mL 00:00: 00:00 under the [place] (3 mL) 00 :00 skin at Medical injection bedtime. Branch glipiZIDE 5 2020- No [id number] 2.5mg Take 0.5 [facility] mg tablet 03-07-08 tablets by ity of 00:00: 00:00 mouth 2 [place] 00 :00 (two) Medical times Branch daily before breakfast and dinner for 30 days. metoprolol 2019- 2020- No [id number] 25mg Take 1 [facility] succinate - 05-08 tablet by ity of XL 25 mg 24 00:00: 00:00 mouth 2 [place] hr tablet 00 :00 (two) Medical times Branch daily for 30 days. ranolazine 2019- 2020- No [id number] 1000mg Take 2 [facility] 500 mg 12 - 05-08 tablets by ity of hr tablet 00:00: 00:00 mouth [place] 00 :00 every 12 Medical (twelve) Branch hours for 30 days. furosemide 2019- 2020- No [id number] 40mg Take 1 [facility] 40 mg - 05-08 tablet by ity of tablet 00:00: 00:00 mouth [place] 00 :00 every Medical morning Branch and evening. aspirin 81 2019- 2020- No [id number] 81mg Take 1 [facility] mg chewable 03-07-08 tablet by it y of tablet 00:00: 00:00 mouth [place] 00 :00 daily with Medical breakfast Branch for 30 days. atorvastati 2019-0 2020- No [id number] 40mg Take 1 [facility] n 40 mg - 05-08 tablet by ity of tablet 00:00: 00:00 mouth at [place] 00 :00 bedtime Medical for 30 Branch days. Magnesium 2019- 2020- No [id number] 400mg Take 400 [facility] Oxide 420 - 05-08 mg by ity of mg Tab 00:00: 00:00 mouth [place] 00 :00 daily. Medical Branch vitamin 2019- 2020- No [id number] 1000ug Take 1 [facility] B-12 1,000 - 05-08 tablet by ity of mcg tablet 00:00: 00:00 mouth [place] 00 :00 daily for Medical 90 days. Branch isosorbide 2019- 2020- No [id number] 15mg Take 0.5 [facility] mononitrate - 05-08 tablets by i ty of 30 mg 24 hr 00:00: 00:00 mouth [place] tablet 00 :00 daily. Medical Hold if Branch systolic blood pressure less than 120 OLANZapine 2019-2019- No [id number] 2.5mg Take 1 [facility] 2.5 mg 03-07-07 tablet by ity of tablet 00:00: 00:00 mouth at [place] 00 :00 bedtime Medical for 30 Branch days. temazepam 2019- No [id number] 15mg Take 1 U nivers 15 mg 03-07-07 capsule by ity of capsule 00:00: 00:00 mouth at [place] 00 :00 bedtime as Medical needed for Branch Insomnia. potassium 2019- 2020- No [id number] 20meq Take 20 [facility] chloride 20 03-07 05-07 mEq by ity o f mEq packet 00:00: 00:00 mouth [place] 00 :00 daily. Medical Take with Branch lasix in the morning OLANZapine 2019-2019- No [id number] 2.5mg Take 1 [facility] 2.5 mg 03-07-07 tablet by ity of tablet 00:00: 00:00 mouth at [place] 00 :00 bedtime Medical for 30 Branch days. temazepam 2019- No [id number] 15mg Take 1 U nivers 15 mg 03-07-07 capsule by ity of capsule 00:00: 00:00 mouth at [place] 00 :00 bedtime as Medical needed for Branch Insomnia. potassium 2019- No [id number] 20meq Take 20 [facility] chloride 20 - 05-07 mEq by ity o f mEq packet 00:00: 00:00 mouth [place] 00 :00 daily. Medical Take with Branch lasix in the morning isosorbide 2019-2019- No 60mg 60 mg, Univ ers mononitrate -21 04-21 Oral, ity of (IMDUR) 24 14:00: 13:43 DAILY, [place] hr tablet 00 :56 First dose Medi birdie 60 mg on Thu [place] 03/06/20 at 0900, Until Discontinu ed, Routine OLANZapine 2019- Yes 2.5mg 2.5 mg, Uni vers (ZyPREXA) 4-21 Oral, QHS, ity of tablet 2.5 02:00: First dose [place] mg 00 on [facility] 03/05/20 at [place] 2100, Until Discontinu ed, Routine insulin 2019- Yes 10U 10 Units, Unive rs glargine 4-21 Subcutaneo ity o f (LANTUS 02:00: us, QHS, [place] U-100) 00 First dose Medical injection on [facility] Branch 10 Units 03/05/20 at 2100, Until Discontinu ed, Routine donepezil 2020-0 Yes 5mg 5 mg, Univers (ARICEPT) 4-21 Oral, QHS, ity of tablet 5 mg 02:00: First dose [place] 00 on [facility] 03/05/20 at Branch 2100, Until Discontinu ed, Routine atorvastati 2020-0 Yes 40mg 40 mg, Univ ers n (LIPITOR) 4-21 Oral, QHS, it y of tablet 40 02:00: First dose [place] mg 00 on [facility] 03/05/20 at Branch 2100, Until Discontinu ed, Routine isosorbide 2020-0 2020- No 30mg 30 mg, Univ ers mononitrate 03-05-20 Oral, ity of (IMDUR) 24 15:30: 15:21 ONCE, 1 [place] hr tablet 00 :00 dose, [facility] Medic al 30 mg 03/05/20 at Branch 1030, Routine spironolact 2020-0 Yes 12.5mg 12.5 mg, Univers one 4-20 Oral, ity of (ALDACTONE) 14:00: DAILY, [place] tablet 12.5 00 First dose Me dical mg on [facility] 03/05/20 at 0900, Until Discontinu ed, Routine memantine 2020-0 Yes 10mg 10 mg, Univer s (NAMENDA) -20 Oral, ity of tablet 10 14:00: DAILY, [place] mg 00 First dose Medical on [facility] 03/05/20 at 0900, Until Discontinu ed, Routine
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 Restricted medication : MEGADC lisinopril 2020-0 2020- No 5mg 5 mg, Unive rs (PRINIVIL,Z 03-05- Oral, ity of ESTRIL) 14:00: 13:44 DAILY, [place] tablet 5 mg 00 :01 First dose Me dical on [facility] 03/05/20 at 0900, Until Discontinu ed, Routine isosorbide 2020-0 2020- No 30mg 30 mg, Univ ers mononitrate 03-05-20 Oral, ity of (IMDUR) 24 14:00: 14:20 DAILY, [place] hr tablet 00 :04 First dose Medi birdie 30 mg on Thu [place] 03/05/20 at 0900, Until Discontinu ed, Routine ranolazine 2020-0 Yes 500mg 500 mg, Uni vers (RANEXA) 12 4-20 Oral, ity of hr tablet 13:00: Q12H, [place] 500 mg 00 First dose Medical on [facility] 03/05/20 at 0800, Until Discontinu ed, Routine metoprolol 2020-0 Yes 25mg 25 mg, Unive rs succinate 4-20 Oral, BID, ity of XL (TOPROL 13:00: First dose [place] XL) tablet 00 on [facility] Medical 25 mg 03/05/20 at Branch 0800, Until Discontinu ed, Routine magnesium 2020-0 Yes 400mg 400 mg, Univ ers oxide 4-20 Oral, BID, ity of (MAG-OX 13:00: First [place] 400) [facility]20 at Branch 0800, Until Discontinu ed, Routine aspirin 2020-0 Yes 81mg 81 mg, [facility] chewable 4-20 Oral, QAM ity of tablet 81 13:00: WITH [place] mg 00 BREAKFAST, Medical First dose Branch on [facility] 03/05/20 at 0800, Until Discontinu ed, Routine Sliding 2020-0 Yes Subcutaneo Univ ers Scale 4-20 us, AC+HS, ity of Insulin-Reg 12:30: First dose [place] ular + Fsbg 00 on [facility] Medica l Testing 03/05/20 at Branch 0730, Until Discontinu ed, Routine glipiZIDE 2020-0 2020- No 5mg 5 mg, Univer s (GLUCOTROL) 4-20 04-22 Oral, ity of tablet 5 mg 12:30: 19:41 BIDAC, [place] 00 :44 First dose Medical on [facility] 03/05/20 at 0730, Until [...] injection 42 Starting Medica l 25 mL [facility] 03/04/20 at 2202, Until Discontinu ed, ADAMA, Blood Glucose < or = 70 mg/dL and patient is unable to swallow or has mental status changes. furosemide 2020-0 Yes 40mg 40 mg, Unive rs (LASIX) 4-20 Oral, ity of tablet 40 03:00: QAM+PM, [place] mg 00 First dose Medical on [facility] 03/04/20 at 2200, Until Discontinu ed, Routine cyanocobala 2020-0 Yes 1000ug 1,000 mcg, Univers min 4-20 Subcutaneo ity of (VITAMIN 03:00: us, Q24H, [place] B12) 00 First dose Medical injection on [facility] 1,000 mcg 03/04/20 at 2200, Until Discontinu ed, Routine heparin 2020-0 Yes 5000U 5,000 Univers (porcine) 4-20 Units, ity of injection 03:00: Subcutaneo [place] 5,000 Units 00 us, Q8H, Medi birdie First dose Branch on [place] 03/04/20 at 2200, Until Discontinu ed, Routine ondansetron 2020-0 Yes 4mg 4 mg, Slow Univers (ZOFRAN 4-20 IV Push, ity of (PF)) 02:34: Q6HPRN, [place] injection 4 40 Starting Medi birdie mg [facility] 03/04/20 at 2133, Until Discontinu ed, Routine, Nausea and Vomiting (N/V) traMADol 2020-0 2020- No 50mg 50 mg, Univer s (ULTRAM) 4-20 04-22 Oral, ity of tablet 50 02:34: 02:33 Q8HPRN, [place] mg 23 :23 Starting Medical [facility] 03/04/20 at 2133, Until 03/06/20 at 3, Routine, Pain (scale 4-6) acetaminoph 2020-0 Yes 650mg 650 mg, Un mel en 4-20 Oral, ity of (TYLENOL) 02:34: Q6HPRN, [place] tablet 650 20 Starting Medic al mg [place] Branch 03/04/20 at 2134, Until Discontinu ed, Routine, Pain (scale 1-3) lisinopril 2020-0 Yes [id number] 5mg Take 1 [facility] 5 mg tablet 4-18 tablet by ity of 00:00: mouth [place] 00 daily. Medical Branch isosorbide 2020-0 Yes [id number] 30mg Take 1 [facility] mononitrate 4-18 tablet by ity of 30 mg 24 hr 00:00: mouth [place] tablet 00 daily. Medical Branch lisinopril 2020-0 Yes [id number] 5mg Take 1 [facility] 5 mg tablet 4-18 tablet by ity of 00:00: mouth [place] 00 daily. Medical Branch isosorbide 2020-0 Yes [id number] 30mg Take 1 [facility] mononitrate 4-18 tablet by ity of 30 mg 24 hr 00:00: mouth [place] tablet 00 daily. Medical Branch lisinopril 2019-0 2020- No [id number] 5mg Take 1 [facility] 5 mg tablet 4-18 04-22 tablet by it y of 00:00: 00:00 mouth [place] 00 :00 daily. Medical Branch isosorbide 2019-0 2020- No [id number] 30mg Take 1 [facility] mononitrate 4-18 04-22 [...] N ORAL 4-17 mouth. ity of 17:34: [place] [address] Medical Branch thiamine 2020-0 Yes 100mg Take 100 Univ ers (VITAMIN 4-17 mg by ity of B-1) 100 mg 17:34: mouth [place] tablet 27 daily. Medical Branch aspirin 81 2020-0 Yes 81mg Take 81 mg U nivers mg chewable 4-17 by mouth ity of tablet 17:34: daily. [place] [address] Medical Branch atorvastati 2020-0 Yes 40mg Take 40 mg Univers n 40 mg 4-17 by mouth ity of tablet 17:34: at [place] 27 bedtime. Medical Branch NaCl 0.9% 2020-0 [...] 4-17 mouth. ity of complex and 17:34: [place] C ( 27 Medical COMPLEX-VIT Branch RAZA C-FOLIC ACID ORAL) Cholecalcif 2020-0 Yes Take by Un mel ann, 4-17 mouth. ity of Vitamin D3, 17:34: [place] 2,000 unit 27 Medical capsule Branch metoprolol 2020-0 Yes 12.5mg Take 12.5 Univers tartrate 4-17 mg by ity of 12.5 mg 17:34: mouth 2 [place] 27 (two) Medical times Branch daily. MULTIVITAMI 2020-0 Yes Take by Un mel N ORAL 4-17 mouth. ity of 17:34: [place] [address] Medical Branch thiamine 2020-0 Yes 100mg Take 100 Univ ers (VITAMIN 4-17 mg by ity of B-1) 100 mg 17:34: mouth [place] tablet 27 daily. Medical Branch aspirin 81 2020-0 Yes 81mg Take 81 mg U nivers mg chewable 4-17 by mouth ity of tablet 17:34: daily. [place] [address] Medical Branch atorvastati 2020-0 Yes 40mg Take 40 mg Univers n 40 mg 4-17 by mouth ity of tablet 17:34: at [place] 27 bedtime. Medical Branch NaCl 0.9% 2020-0 Yes 10mL Inject 10 Uni vers (NS) Soln 4-17 mL ity of 10 mL with 17:34: intravenou [place] sodium 27 sly once Medical chloride now. [place] 2.5 mEq/mL SolP 17.125 mEq potassium 2020-0 2020- No 20meq Take 20 Uni vers chloride 20 4-17 04-17 mEq by ity o f mEq packet 15:53: 00:00 mouth [place] 05 :00 daily. Medical Branch donepezil 2020-0 Yes 5mg 5 mg, Univers (ARICEPT) 4-17 Oral, QHS, ity of tablet 5 mg 02:00: First dose [place] 00 on [facility] Medical 03/01/20 at [place] 2100, Until Discontinu ed, Routine furosemide 2020-0 Yes [id number] 40mg Take 1 [facility] 40 mg 4-17 tablet by ity of tablet 00:00: mouth [place] 00 every Medical morning Branch and evening. potassium 2020-0 Yes [id number] 20meq Take 20 [facility] chloride 20 4-17 mEq by ity of mEq packet 00:00: mouth [place] 00 daily. Medical Branch vitamin 2020-0 Yes [id number] 1000ug Take 1 U nivers B-12 1,000 4-17 tablet by ity of mcg tablet 00:00: mouth [place] 00 daily. Medical Branch furosemide 2020-0 Yes [id number] 40mg Take 1 [facility] 40 mg 4-17 tablet by ity of tablet 00:00: mouth [place] 00 every Medical morning Branch and evening. potassium 2020-0 Yes [id number] 20meq Take 20 [facility] chloride 20 4-17 mEq by ity of mEq packet 00:00: mouth [place] 00 daily. Medical Branch vitamin 2020-0 Yes [id number] 1000ug Take 1 U nivers B-12 1,000 4-17 tablet by ity of mcg tablet 00:00: mouth [place] 00 daily. Medical Branch furosemide 2020-0 2020- No [id number] 40mg Take 1 [facility] 40 mg 4-17 04-22 tablet by ity of tablet 00:00: 00:00 mouth [place] 00 :00 every Medical morning Branch and evening. potassium 2020-0 2020- No [id number] 20meq Take 20 [facility] chloride 20 4-17 04-22 mEq by ity o f mEq packet 00:00: 00:00 mouth [place] 00 :00 daily. Medical Branch vitamin 2020-0 2020- No [id number] 1000ug Take 1 [facility] B-12 1,000 4-17 04-22 tablet by ity of mcg tablet 00:00: 00:00 mouth [place] 00 :00 daily. Medical Branch cyanocobala 2020-0 Yes 1000ug 1,000 mcg, Univers min 4-16 Subcutaneo ity of (VITAMIN 20:45: us, Q24H, [place] B12) 00 First dose Medical injection on [facility] Branch 1,000 mcg 03/01/20 at 1545, Until Discontinu ed, Routine isosorbide 2020-0 Yes 30mg 30 mg, Unive rs mononitrate 4-16 Oral, ity of (IMDUR) 24 14:00: DAILY, [place] hr tablet 00 First dose Medi birdie 30 mg on [facility] 03/01/20 at 0900, Until Discontinu ed, Routine memantine 2020-0 Yes 10mg 10 mg, Univer s (NAMENDA) 4-16 Oral, ity of tablet 10 14:00: DAILY, [place] mg 00 First dose Medical on [facility] 03/01/20 at 0900, Until Discontinu ed, Routine
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 Restricted medication : MEGADC lisinopril 2020-0 Yes 5mg 5 mg, Univer s (PRINIVIL,Z 4-16 Oral, ity of ESTRIL) 14:00: DAILY, [place] tablet 5 mg 00 First dose Me dical on [facility] 03/01/20 at 0900, Until Discontinu ed, Routine enoxaparin 2020-0 Yes 30mg 30 mg, Unive rs (LOVENOX) 4-16 Subcutaneo ity of injection 14:00: [place], DAILY, [place] 30 mg 00 First dose Medical on [facility] 03/01/20 at 0900, Until Discontinu ed, Routine KCL 2020-0 2020- No 20meq 20 mEq, Univers (KLOR-CON -01 03-16 Oral, ity of M20) tablet 14:00: 13:26 DAILY, [place] 20 mEq 00 :35 First dose Medical on [facility] 03/01/20 at 0900, Until Discontinu ed, Routine KCL 2020-0 Yes 40meq 40 mEq, Univers (KLOR-CON 03-01 Oral, BID, ity of M20) tablet 13:30: First dose [place] 40 mEq 00 on [facility] 03/01/20 at Branch 0830, Until Discontinu ed, Routine magnesium 2020-0 2020- No 2g 2 g, IV Univ ers sulfate in 03-01 Infusion, ity of water 2 03:30: 03:30 ONCE, 1 [place] gram/50 mL 00 :00 dose, [facility] birdie (4 %) 2 g 02/29/20 at [facility] piggyback 2230 metoprolol 2020-0 2020- No 5mg 5 mg, Slow Univers (LOPRESSOR) 03-01 IV Push, ity of injection 5 03:30: 03:37 ONCE, 1 [place] mg 00 :00 dose, [facility] 02/29/20 at Branch 2230, ADAMA glipiZIDE 2020-0 Yes 5mg 5 mg, Univers (GLUCOTROL) 03-01 Oral, ity of tablet 5 mg 02:45: BIDAC, [place] 00 First dose Medical on [facility] 02/29/20 at 2145, Until Discontinu ed, Routine insulin 2020-0 Yes 10U 10 Units, Unive rs glargine 03-01 Subcutaneo ity o f (LANTUS 02:45: us, [facility], [place] U-100) 00 First dose Medical injection on [facility] 10 Units 02/29/20 at 2145, Until Discontinu ed, Routine OLANZapine 2020-0 Yes 2.5mg 2.5 mg, Uni vers (ZyPREXA) 03-01 Oral, QHS, ity of tablet 2.5 02:45: First dose [place] mg 00 on [facility] 02/29/20 at Branch 2145, Until Discontinu ed, Routine ranolazine 2020-0 Yes 500mg 500 mg, Uni vers (RANEXA) 12 03-01 Oral, ity of hr tablet 02:30: Q12H, [place] 500 mg 00 First dose Medical on [facility] 02/29/20 at 2130, Until Discontinu ed, [...] 4-15 Oral, ity of (TYLENOL) 23:57: Q6HPRN, [place] tablet 650 25 Starting Medic al mg Wed Branch 02/29/20 at 1857, Until Discontinu ed, Routine, Pain (scale 1-3) NaCl 0.9% 2020-0 2020- No 500mL at 999 Univ ers (NS) bolus -15 04-15 mL/hr, 500 it y of infusion 23:30: 23:37 mL, IV [place] 500 mL 00 :00 Infusion, Medical ONCE, 1 Branch dose, 02/29/20 at 1830, ADAMA acetaminoph 2019- No 650mg 650 mg, U nivers en 02-2815 Oral, ity of (TYLENOL) 23:00: 22:36 ONCE, 1 [place] tablet 650 00 :00 dose, Thu Medi birdie mg 02/29/20 at Branch 1800, ADAMA donepezil 5 Yes 5mg Take 5 mg U nivers mg tablet 02-14 by mouth ity of 00:00: daily. [place] Medical Branch donepezil 5 2019- No 5mg Take 5 mg Univers mg tablet 02-14 by mouth ity o f 00:00: 00:00 daily. [place] 00 :00 Medical Branch nitroglycer 2019- No [...] Yes 1{capsu Take 1 U nivers onepezil 01-16 le} capsule by ity o f (NAMZARIC) [...] by mouth ity of tablet 23:00: at [place] 52 bedtime. Medical Branch NaCl 0.9% 2020-0 [...] ity of 12.5 mg 23:00: mouth 2 [place] [address] (two) Medical times Branch daily. MULTIVITAMI 2020-0 Yes Take by Un mel N ORAL 3-03 mouth. ity of 23:00: [place] [address] Medical Branch thiamine 2020-0 Yes 100mg Take 100 Univ ers (VITAMIN 3-03 mg by ity of B-1) 100 mg 23:00: mouth [place] tablet 52 daily. Medical Branch aspirin 81 2020-0 Yes 81mg Take 81 mg U nivers mg chewable 3-03 by mouth ity of tablet 23:00: daily. [place] [address] Medical Branch atorvastati 2020-0 Yes 40mg Take 40 mg Univers n 40 mg 3-03 by mouth ity of tablet 23:00: at [place] [address] bedtime. Medical Branch NaCl 0.9% 2020-0 Yes [...] by ity of mEq packet 23:00: mouth [place] 52 daily. Medical Branch Cholecalcif 2020-0 Yes Take by Un mel ann, 3-03 mouth. ity of Vitamin D3, 23:00: [place] 2,000 unit 52 Medical capsule Branch metoprolol 2020-0 Yes 12.5mg Take 12.5 Univers tartrate 3-03 mg by ity of 12.5 mg 23:00: mouth 2 [place] 52 (two) Medical times Branch daily. MULTIVITAMI 2020-0 Yes Take by Un mel N ORAL 3-03 mouth. ity of 23:00: [place] [address] Medical Branch thiamine 2020-0 Yes 100mg Take 100 Univ ers (VITAMIN 3-03 mg by ity of B-1) 100 mg 23:00: mouth [place] tablet 52 daily. Medical Branch aspirin 81 2020-0 Yes 81mg Take 81 mg U nivers mg chewable 3-03 by mouth ity of tablet 23:00: daily. [place] [address] Medical Branch atorvastati 2020-0 Yes 40mg Take 40 mg Univers n 40 mg 3-03 by mouth ity of tablet 23:00: at [place] [address] bedtime. Medical Branch NaCl 0.9% 2020-0 Yes [...] ity of complex and 23:00: [place] C ([facility] Medical COMPLEX-VIT Branch RAZA C-FOLIC ACID ORAL) potassium 2020-0 Yes 20meq Take 20 Univ ers chloride 20 3-03 mEq by ity of mEq packet 23:00: mouth [place] 52 daily. Medical Branch Cholecalcif 2020-0 Yes Take by Un mel ann, 3-03 mouth. ity of Vitamin D3, 23:00: [place] 2,000 [facility] 52 Medical capsule Branch metoprolol 2020-0 Yes 12.5mg Take 12.5 Univers tartrate 3-03 mg by ity of 12.5 mg 23:00: mouth 2 [place] 52 (two) Medical times Branch daily. MULTIVITAMI 2020-0 Yes Take by Un mel N ORAL 3-03 mouth. ity of 23:00: [place] [address] Medical Branch thiamine 2020-0 Yes 100mg Take 100 Univ ers (VITAMIN 3-03 mg by ity of B-1) 100 mg 23:00: mouth [place] tablet 52 daily. Medical Branch aspirin 81 2020-0 Yes 81mg Take 81 mg U nivers mg chewable 3-03 by mouth ity of tablet 23:00: daily. [address] Branch atorvastati 2020-0 Yes 40mg Take 40 mg Univers n 40 mg 3-03 by mouth ity of tablet 23:00: at [place] [address] bedtime. Medical Branch NaCl 0.9% 2019-0 Yes [...] First dose [place] mg 00 on [facility] 01/16/20 at Branch 2100, Until Discontinu ed, Routine ranolazine 2020-0 2020- No [id number] 500mg Take 1 Univers 500 mg 12 01-16- tablet by ity of hr tablet 00:00: 04:59 mouth [place] 00 :00 every 12 Medical (twelve) Branch hours for 30 days. ranolazine 2020-0 2020- No [id number] 500mg Take 1 Univers 500 mg 12 01-16- tablet by ity of hr tablet 00:00: 04:59 mouth [place] 00 :00 every 12 Medical (twelve) Branch hours for 30 days. ranolazine 2020-0 2020- No [id number] 500mg Take 1 Univers 500 mg 12 01-16 04-03 tablet by ity of hr tablet 00:00: 04:59 mouth [place] 00 :00 every 12 Medical (twelve) Branch hours for 30 days. ranolazine 2020-0 2020- No [id number] 500mg Take 1 Univers 500 mg 12 01-16 04-03 tablet by ity of hr tablet 00:00: 04:59 mouth [place] 00 :00 every 12 Medical (twelve) Branch hours for 30 days. ranolazine 2020-0 Yes 500mg 500 mg, Uni vers (RANEXA) 12 3-02 Oral, ity of hr tablet 22:30: Q12H, [place] 500 mg 00 First dose Medical on Thu [place] 01/16/20 at 1630, Until Discontinu ed, Routine insulin 2019-0 Yes 30U 30 Units, Unive rs glargine -02 Subcutaneo ity o f (LANTUS 15:00: us, [...] First dose [place] tablet 12.5 00 on Mon Medica l mg 01/16/20 at Branch 0800, Until Discontinu ed, Routine Sliding 2020-0 Yes Subcutaneo Univ ers Scale 01-15 us, Q6H, ity of Insulin-Reg 12:00: First dose [place] ular + Fsbg 00 on Thu Medica l Testing 01/16/20 at Branch 0600, [...] IV ity of (D50W) 10:52: Push, PRN, [place] injection 33 Starting Medica l 25 mL [...] Until Discontinu ed, Routine, Chest pain ondansetron 2019- Yes 4mg 4 mg, Slow Univers (ZOFRAN 01-15 IV Push, ity of (PF)) 07:55: Q6HPRN, [place] injection 4 01 Starting Medi birdie mg 01/16/20 Branch at 0155, Until Discontinu ed, Routine, Nausea and Vomiting (N/V) morpHINE 2019- 2020- No 2mg 2 mg, Slow Un mel injection 2 01-15 0303 IV Push, ity of mg 07:54: 07:53 Q6HPRN, [place] 55 :55 Starting Medical [facility] 01/16/20 Branch at 0154, Until 01/17/20 at 0153, Routine, Pain (scale 7-10) traMADol 2019- 2020- No 50mg 50 mg, Univer s (ULTRAM) 01-15 03-04 Oral, ity of tablet 50 07:54: 07:53 Q8HPRN, [place] [facility] :47 Starting Medical [facility] 01/16/20 Branch at 0154, Until Thu01/18/20 at 0153, Routine, Pain (scale 4-6) acetaminoph Yes 650mg 650 mg, Un mel en 01-15 Oral, ity of (TYLENOL) 07:54: [facility], [place] tablet 650 44 Starting Medic al mg [facility] 01/16/20 Branch at 0154, Until Discontinu ed, Routine, Pain (scale 1-3) insulin 2019-0 2020- No 8U 8 Units, Unive rs regular 01-15- Slow IV ity of human 06:45: 05:40 [facility], [place] (HUMULIN R) 00 :00 ONCE, 1 Medic al injection 8 dose, Mon Bra nch Units 01/16/20 at 0045, STAT heparin 2020-0 Yes 1000U/h 1,000 Univer s 25,000 3-02 Units/hr ity of unit/250 mL 06:00: (10 [place] (Premixed 00 mL/hr), IV Medi birdie Bag) in Infusion, Branch NaCl 0.45 % CONTINUOUS weight , Starting based Thu01/16/20 dosing [facility] at 0000, protocol Until Discontinu ed heparin 2020-0 2020- No 4000U 4,000 Univers 1000 3 03-02 Units, IV ity of unit/mL 05:45: 05:47 Push, [place] injection 00 :00 ONCE, 1 Medical Soln 4,000 dose, Sun Bran ch Units 01/15/20 at 2345, ADAMA furosemide 2018- Yes [id number] 40mg Take 1 Univers 40 mg 0-26 tablet by ity of tablet 00:00: mouth [place] 00 daily. Medical Branch furosemide 2018-11 Yes [id number] 40mg Take 1 Univers 40 mg 0-26 tablet by ity of tablet 00:00: mouth [place] 00 daily. Medical Branch furosemide 2018-11 Yes [id number] 40mg Take 1 Univers 40 mg 0-26 tablet by ity of tablet 00:00: mouth [place] 00 daily. Medical Branch furosemide 2018-11 Yes [id number] 40mg Take 1 Univers 40 mg 0-26 tablet by ity of tablet 00:00: mouth [place] 00 daily. Medical Branch furosemide 2018-11 2020- No [id number] 40mg Take 1 Univers 40 mg 0-26 04-17 tablet by ity of tablet 00:00: 00:00 mouth [place] 00 :00 daily. Medical Branch magnesium 2018-11 Yes [id number] 400mg Take 400 Univers oxide 420 0-23 mg by ity of mg Tab 00:00: mouth [place] 00 daily. Medical Branch magnesium 2018- Yes [id number] 400mg Take 400 Univers oxide 420 0-23 mg by ity of mg Tab 00:00: mouth [place] 00 daily. Medical Branch magnesium 2018- Yes [id number] 400mg Take 400 Univers oxide 420 0-23 mg by ity of mg Tab 00:00: mouth [place] 00 daily. Medical Branch magnesium 2019- Yes [id number] 400mg Take 400 Univers oxide 420 0-23 mg by ity of mg Tab 00:00: mouth [place] 00 daily. Medical Branch magnesium 2019- Yes [id number] 400mg Take 400 Univers oxide 420 0-23 mg by ity of mg Tab 00:00: mouth [place] 00 daily. Medical Branch magnesium 2019- Yes [id number] 400mg Take 400 Univers oxide 420 0-23 mg by ity of mg Tab 00:00: mouth [place] 00 daily. Medical Branch magnesium 2018- 2020- No [id number] 400mg Take 400 Univers oxide 420 0-23 04-22 mg by ity of mg Tab 00:00: 00:00 mouth [place] 00 :00 daily. Medical Branch Insulin 2018-0 Yes [id number] 30U inject 30 Univers Glargine 9-11 Units ity of 100 unit/mL 00:00: under the [place] (3 mL) 00 skin every Medical injection morning. Branch Insulin 2018- Yes [id number] 30U inject 30 Univers Glargine 9-11 Units ity of 100 unit/mL 00:00: under the [place] (3 mL) 00 skin every Medical injection morning. Branch Insulin 2018-0 Yes [id number] 30U inject 30 Univers Glargine 9-11 Units ity of 100 unit/mL 00:00: under the [place] (3 mL) 00 skin every Medical injection morning. Branch Insulin Yes [id number] 30U inject 30 Univers Glargine 9-11 Units ity of 100 unit/mL 00:00: under the [place] (3 mL) 00 skin every Medical injection morning. Branch Insulin 2018- Yes [id number] 30U inject 30 Univers Glargine 9-11 Units ity of 100 unit/mL 00:00: under the [place] (3 mL) 00 skin every Medical injection morning. Branch Insulin 2018- Yes [id number] 30U inject 30 Univers Glargine 9-11 Units ity of 100 unit/mL 00:00: under the [place] (3 mL) 00 skin every Medical injection morning. Branch Insulin 2018- Yes [id number] 30U inject 30 Univers Glargine 9-11 Units ity of 100 unit/mL 00:00: under the [place] (3 mL) 00 skin every Medical injection morning. Branch Insulin 0 2020- No [id number] 30U inject 30 Univers Glargine 9-11 04-22 Units ity of 100 unit/mL 00:00: 00:00 under the [place] (3 mL) 00 :00 skin every Medical injection morning. Branch memantine-d 2018-0 Yes 1{capsu Take 1 U nivers onepezil 5-10 le} capsule by itazra o sonu (NAMZARIC) 15:26: mouth [place] 28-10 mg 43 daily. Medical CSpX Branch enoxaparin 2018-0 Yes 30mg inject 30 Un mel injection 5-10 mg under ity of 15:26: the skin. [place] [address] Medical Branch Cholecalcif 0 Yes Take by Un mel ann, 5-10 mouth. ity of Vitamin D3, 15:26: [place] 2,000 unit 43 Medical capsule Branch metoprolol 0 Yes 12.5mg Take 12.5 Univers tartrate 5-10 mg by ity of 12.5 mg 15:26: mouth 2 [place] 43 (two) Medical times Branch daily. MULTIVITAMI 0 Yes Take by Un mel N ORAL 5-10 mouth. ity of 15:26: [place] [address] Medical Branch thiamine 0 Yes 100mg Take 100 Univ ers (VITAMIN 5-10 mg by ity of B-1) 100 mg 15:26: mouth [place] tablet 43 daily. Medical Branch aspirin 81 0 Yes 81mg Take 81 mg U nivers mg chewable 5-10 by mouth ity of tablet 15:26: daily. [place] [address] Medical Branch atorvastati 0 Yes 40mg Take 40 mg Univers n 40 mg 5-10 by mouth ity of tablet 15:26: at [place] 43 bedtime. Medical Branch furosemide 0 Yes 40mg Take 40 mg U nivers 40 mg 5-10 by mouth ity of tablet 15:26: daily. [place] [address] Medical Branch NaCl 0.9% 0 Yes 10mL [...] mg under ity of 15:26: the skin. [place] [address] Medical Branch Cholecalcif 0 Yes Take by Un mel ann, 5-10 mouth. ity of Vitamin D3, 15:26: [place] 2,000 unit 43 Medical capsule Branch metoprolol 0 Yes 12.5mg Take 12.5 Univers tartrate 5-10 mg by ity of 12.5 mg 15:26: mouth 2 [place] [address] (two) Medical times Branch daily. MULTIVITAMI Yes Take by Un mel N ORAL 5-10 mouth. ity of 15:26: [place] [address] Medical Branch thiamine 0 Yes 100mg Take 100 Univ ers (VITAMIN 5-10 mg by ity of B-1) 100 mg 15:26: mouth [place] tablet 43 daily. Medical Branch aspirin 81 Yes 81mg Take 81 mg U nivers mg chewable 5-10 by mouth ity of tablet 15:26: daily. [address] Branch atorvastati 0 Yes 40mg Take 40 mg Univers n 40 mg 5-10 by mouth ity of tablet 15:26: at [place] [address] bedtime. Medical Branch furosemide 0 Yes 40mg Take 40 mg U nivers 40 mg 5-10 by mouth ity of tablet 15:26: daily. [place] [address] Medical Branch NaCl 0.9% Yes 10mL Inject 10 Uni vers (NS) Soln 5-10 mL ity of 10 mL with 15:26: intravenou [place] sodium 43 sly once Medical chloride now. Branch 2.5 mEq/mL SolP 17.125 mEq insulin 2018- Yes [id number] 4U inject 4 U nivers lispro, 5-10 Units ity of human, 100 00:00: under the [place] unit/mL 00 skin 3 Medical injection (three) Branch times daily before meals. insulin 0 Yes [id number] 4U inject 4 U nivers lispro, 5-10 Units ity of human, 100 00:00: under the [place] unit/mL 00 skin 3 Medical injection (three) Branch times daily before meals. insulin 2018-0 Yes [id number] 4U inject 4 U nivers lispro, 5-10 Units ity of human, 100 00:00: under the [place] unit/mL 00 skin 3 Medical injection (three) Branch times daily before meals. insulin 2018-0 Yes [id number] 4U inject 4 U nivers lispro, 5-10 Units ity of human, 100 00:00: under the [place] unit/mL 00 skin 3 Medical injection (three) Branch times daily before meals. insulin 2018-0 Yes [id number] 4U inject 4 U nivers lispro, 5-10 Units ity of human, 100 00:00: under the [place] unit/mL 00 skin 3 Medical injection (three) Branch times daily before meals. insulin 2018- Yes [id number] 4U inject 4 U nivers lispro, 5-10 Units ity of human, 100 00:00: under the [place] unit/mL 00 skin 3 Medical injection (three) Branch times daily before meals. Insulin 2018- Yes [id number] 18U inject Uni vers Glargine 5-10 18-24 ity of 100 unit/mL 00:00: Units [place] (3 mL) 00 under the Medical injection skin every Bran ch morning. insulin 2018- Yes [id number] 4U inject 4 U nivers lispro, 5-10 Units ity of human, 100 00:00: under the [place] unit/mL 00 skin 3 Medical injection (three) Branch times daily before meals. insulin 2018- Yes [id number] 4U inject 4 U nivers lispro, 5-10 Units ity of human, 100 00:00: under the [place] unit/mL 00 skin 3 Medical injection (three) Branch times daily before meals. insulin 2018- Yes [id number] 4U inject 4 U nivers lispro, 5-10 Units ity of human, 100 00:00: under the [place] unit/mL 00 skin 3 Medical injection (three) Branch times daily before meals. insulin 2018-0 Yes [id number] 4U inject 4 U nivers lispro, 5-10 Units ity of human, 100 00:00: under the [place] unit/mL 00 skin 3 Medical injection (three) Branch times daily before meals. insulin 2018- Yes [id number] 4U inject 4 U nivers lispro, 5-10 Units ity of human, 100 00:00: under the [place] unit/mL 00 skin 3 Medical injection (three) Branch times daily before meals. insulin 2019- No [id number] 4U inject 4 Univers lispro, 5-10 05-07 Units ity of human, 100 00:00: 00:00 under the [place] unit/mL 00 :00 skin 3 Medical injection (three) Branch times daily before meals. insulin 2019- No [id number] 4U inject 4 Univers lispro, 5-10 05-07 Units ity of human, 100 00:00: 00:00 under the [place] unit/mL 00 :00 skin 3 Medical injection (three) Branch times daily before meals. Insulin 2019- No [id number] 18U inject Un mel Glargine 03-25 18-24 ity of 100 unit/mL 00:00: 00:00 Units [place] (3 mL) 00 :00 under the Medical injection skin every Bran ch morning. folic Yes Take by Univers acid/vit B 3-08 mouth. ity of complex and 16:39: [facility] (B 29 Medical COMPLEX-VIT Branch RAZA C-FOLIC ACID ORAL) potassium Yes 20meq Take 20 Univ ers chloride 20 3-08 mEq by ity of mEq packet 16:39: mouth [place] 29 daily. Medical Branch folic Yes Take by Univers acid/vit B 3-08 mouth. ity of complex and 16:39: [facility] ( 29 Medical COMPLEX-VIT Branch RAZA C-FOLIC ACID ORAL) potassium Yes 20meq Take 20 Univ ers chloride 20 3-08 mEq by ity of mEq packet 16:39: mouth [place] [address] daily. Medical Branch Potassium Potassium Yes Anneliese [...] Yes Anneliese as [facility] directed [facility] ent Clinics Lasix Lasix Yes Anneliese [address] [facility] l [facility] ent Clinics Isosorbide Isosorbide Yes Anneliese [address] [facility] Mononitrate [facility] in the [facility] ent Clinics Lykevin Brady Yes Anneliese 1 capsule [facility] ent [facility] Immunizations Ordered Filled Immunization Date Status Comments [facility] e Immunization Name Name SARS-COV-2 COVID-19 2021-09-16 Completed Unive rsity of MODERNA VACCINE 00:00:00 [facility] SARS-COV-2 COVID-19 2021-09-16 Completed Unive rsity of MODERNA VACCINE 00:00:00 [facility] SARS-COV-2 COVID-19 2021-09-16 Completed Unive rsity of MODERNA VACCINE 00:00:00 [facility] SARS-COV-2 COVID-19 2021-08-17 Completed Unive rsity of MODERNA VACCINE 00:00:00 [facility] Influenza High Dose 2021-08-17 Completed Unive rsity of 00:00:00 [facility] SARS-COV-2 COVID-19 2021-08-17 Completed Unive rsity of MODERNA VACCINE 00:00:00 [facility] Influenza High Dose 2021-08-17 Completed Unive rsity of 00:00:00 [facility] SARS-COV-2 COVID-19 2021-08-17 Completed Unive rsity of MODERNA VACCINE 00:00:00 [facility] Influenza High Dose 2021-08-17 Completed Unive rsity of 00:00:00 [facility] Zoster(Zostavax)( 2020-09-14 Completed Unive rsity of ingles) 00:00:00 [facility] Zoster(Zostavax)( 2020-09-14 Completed Unive rsity of ingles) 00:00:00 [facility] Zoster(Zostavax)( 2020-09-14 Completed Unive rsity of ingles) 00:00:00 [facility] Influenza High Dose 2020-07-13 Completed Unive rsity of 00:00:00 [facility] Influenza High Dose 2020-07-13 Completed Unive rsity of 00:00:00 [facility] Influenza High Dose 2020-07-13 Completed Unive rsity of 00:00:00 [facility] Influenza High Dose 2019-09-15 Completed Unive rsity of 00:00:00 [facility] Influenza High Dose 2019-09-15 Completed Unive rsity of 00:00:00 [facility] Influenza High Dose 2019-09-15 Completed Unive rsity of 00:00:00 [facility] Influenza Virus 2018-09-09 Completed Universit y of Vaccine 00:00:00 [facility] Influenza Virus 2018-09-09 Completed Universit y of Vaccine 00:00:00 [facility] Influenza Virus 2018-09-09 Completed Universit y of Vaccine 00:00:00 [facility] Influenza Virus 2018-09-09 Completed Universit y of Vaccine 00:00:00 [facility] Influenza Virus 2018-09-09 Completed Universit y of Vaccine 00:00:00 [facility] Influenza Virus 2018-09-09 Completed Universit y of Vaccine 00:00:00 [facility] Influenza Virus 2018-09-09 Completed Universit y of Vaccine 00:00:00 [facility] Influenza Virus 2018-09-09 Completed Universit y of Vaccine 00:00:00 [facility] Influenza Virus 2018-09-09 Completed Universit y of Vaccine 00:00:00 [facility] Influenza Virus 2018-09-09 Completed Universit y of Vaccine 00:00:00 [facility] Influenza Virus 2018-09-09 Completed Universit y of Vaccine 00:00:00 [facility] Influenza Virus 2018-09-09 Completed Universit y of Vaccine 00:00:00 [facility] Influenza Virus 2018-09-09 Completed Universit y of Vaccine 00:00:00 [facility] Influenza Virus 2018-09-09 Completed Universit y of Vaccine 00:00:00 [facility] Influenza Virus 2018-09-09 Completed Universit y of Vaccine 00:00:00 [facility] Influenza Virus 2018-09-09 Completed Universit y of Vaccine 00:00:00 [facility] Influenza Virus 2018-09-09 Completed Universit y of Vaccine 00:00:00 [facility] Influenza Virus 2018-09-09 Completed Universit y of Vaccine 00:00:00 [facility] Influenza Virus 2018-09-09 Completed Universit y of Vaccine 00:00:00 [facility] Influenza Virus 2018-09-09 Completed Universit y of Vaccine 00:00:00 [facility] Influenza Virus 2018-09-09 Completed Universit y of Vaccine 00:00:00 [facility] Pneumococcal 2016-11-02 Completed University o f [...] 2016-11-02 Completed University o f Polysaccharide, 00:00:00 [place] Med ical PPSV23 (PNEUMOVAX) Branch Vital Signs Vital Name Observation Time Observation Value Comments Source Systolic blood 2021-11-02 17:17:00 109 mm[Hg] Univer sity of pressure [facility] Diastolic blood 2021-11-02 17:17:00 67 mm[Hg] Unive rsity of [facility] Heart rate 2021-11-02 17:17:00 84 /min [facility] Body temperature 2021-11-02 17:17:00 36.44 Priyanka [facility] Respiratory rate 2021-11-02 17:17:00 18 /min [facility] Oxygen saturation in 2021-11-02 17:17:00 95 /min [facility] Arterial blood by [facility] Pulse oximetry Branch Body weight 2021-11-02 09:17:00 79.969 kg [facility] BMI 2021-11-02 09:17:00 27.61 kg/m2 [facility] Body height 2021-10-31 05:46:00 170.2 cm [facility] Systolic blood 2021-04-25 22:36:00 118 mm[Hg] Univer sity of pressure [facility] Diastolic blood 2021-04-25 22:36:00 70 mm[Hg] Unive rsity of [facility] Heart rate 2021-04-25 22:36:00 68 /min [facility] Respiratory rate 2021-04-25 22:36:00 18 /min Univ ersity of [place] [facility] Oxygen saturation in 2021-04-25 22:36:00 99 /min University of Arterial blood by [facility] birdie Pulse oximetry Branch Body temperature 2021-04-25 15:42:00 36.44 Priyanka Univ ersity of [place] [facility] Body weight 2021-04-25 15:42:00 81.647 kg Universi ty of [place] [facility] BMI 2021-04-25 15:42:00 27.37 kg/m2 Universi ty of [place] [facility] Systolic blood 2020-06-26 10:00:00 124 mm[Hg] Univer sity of pressure [place] [facility] Diastolic blood 2020-06-26 10:00:00 78 mm[Hg] Unive rsity of pressure [place] [facility] Respiratory rate 2020-06-26 10:00:00 18 /min Univ ersity of [place] [facility] Oxygen saturation in 2020-06-26 10:00:00 98 /min University of Arterial blood by [facility] birdie Pulse oximetry Branch Heart rate 2020-06-26 08:56:00 98 /min Universi ty of [place] [facility] Body temperature 2020-06-26 08:56:00 37.17 Priyanka Univ ersity of [place] [facility] Body weight 2020-06-26 08:56:00 74.844 kg Universi ty of [place] [facility] BMI 2020-06-26 08:56:00 25.09 kg/m2 Universi ty of [place] [facility] Systolic blood 2020-06-26 10:00:00 124 mm[Hg] Univer sity of pressure [place] [facility] Diastolic blood 2020-06-26 10:00:00 78 mm[Hg] Unive rsity of pressure [place] [facility] Respiratory rate 2020-06-26 10:00:00 18 /min Univ ersity of [place] [facility] Oxygen saturation in 2020-06-26 10:00:00 98 /min University of Arterial blood by [place] [employer] birdie Pulse oximetry Branch Heart rate 2020-06-26 08:56:00 98 /min Universi ty of [place] [facility] Body temperature 2020-06-26 08:56:00 37.17 Priyanka Univ ersity of [place] [facility] Body weight 2020-06-26 08:56:00 74.844 kg Universi ty of [place] [facility] BMI 2020-06-26 08:56:00 25.09 kg/m2 Universi ty of [place] [facility] Systolic blood 2020-05-24 15:47:29 166 mm[Hg] Univer sity of pressure [place] [facility] Diastolic blood 2020-05-24 15:47:29 89 mm[Hg] Unive rsity of pressure [place] [facility] Heart rate 2020-05-24 15:47:29 86 /min Universi ty of [place] [facility] Respiratory rate 2020-05-24 15:47:29 16 /min Univ ersity of [place] [facility] Oxygen saturation in 2020-05-24 15:47:29 97 /min University of Arterial blood by [facility] Pulse oximetry Branch Body temperature 2020-05-24 11:44:00 36.94 Priyanka Univ ersity of [place] [facility] Body height 2020-05-24 11:44:00 172.7 cm Universi ty of [place] [facility] Body weight 2020-05-24 11:44:00 74.844 kg Universi ty of [place] [facility] BMI 2020-05-24 11:44:00 25.09 kg/m2 Universi ty of [place] [facility] Systolic blood 2020-05-24 15:47:29 166 mm[Hg] Univer sity of pressure [place] [facility] Diastolic blood 2020-05-24 15:47:29 89 mm[Hg] Unive rsity of pressure [place] [facility] Heart rate 2020-05-24 15:47:29 86 /min Universi ty of [place] [facility] Respiratory rate 2020-05-24 15:47:29 16 /min Univ ersity of [place] [facility] Oxygen saturation in 2020-05-24 15:47:29 97 /min University of Arterial blood by [facility] Pulse oximetry Branch Body temperature 2020-05-24 11:44:00 36.94 Priyanka Univ ersity of [place] [facility] Body height 2020-05-24 11:44:00 172.7 cm Universi ty of [place] [facility] Body weight 2020-05-24 11:44:00 74.844 kg Universi ty of [place] [facility] BMI 2020-05-24 11:44:00 25.09 kg/m2 Universi ty of [place] [facility] Systolic blood 2020-03-24 02:31:00 127 mm[Hg] Univer sity of pressure [place] [facility] Diastolic blood 2020-03-24 02:31:00 72 mm[Hg] Unive rsity of pressure [place] [facility] Heart rate 2020-03-24 02:31:00 69 /min Universi ty of [place] [facility] Body temperature 2020-03-24 02:31:00 36.39 Priyanka Univ ersity of [place] [facility] Respiratory rate 2020-03-24 02:31:00 18 /min Univ ersity of [place] [facility] Oxygen saturation in 2020-03-24 02:31:00 97 /min University of Arterial blood by [facility] Pulse oximetry Branch Systolic blood 2020-03-23 21:35:00 100 mm[Hg] Univer sity of pressure [place] [facility] Diastolic blood 2020-03-23 21:35:00 59 mm[Hg] Unive rsity of pressure [place] [facility] Heart rate 2020-03-23 21:35:00 79 /min Universi ty of [place] [facility] Body temperature 2020-03-23 21:35:00 36.78 Priyanka Univ ersity of [place] [facility] Respiratory rate 2020-03-23 21:35:00 18 /min Univ ersity of [place] [facility] Oxygen saturation in 2020-03-23 21:35:00 99 /min University of Arterial blood by [facility] Pulse oximetry Branch Body weight 2020-03-23 09:41:00 76.613 kg Universi ty of [place] [facility] BMI 2020-03-23 09:41:00 26.45 kg/m2 [facility] Body height 2020-03-23 03:43:00 170.2 cm [facility] Systolic blood 2020-03-21 20:55:00 128 mm[Hg] [facility] Diastolic blood 2020-03-21 20:55:00 61 mm[Hg] [facility] Heart rate 2020-03-21 20:55:00 75 /min [facility] Respiratory rate 2020-03-21 20:55:00 10 /min [facility] Oxygen saturation in 2020-03-21 20:55:00 98 /min [facility] Arterial blood by [facility] Pulse oximetry Branch Body temperature 2020-03-21 20:03:00 37.83 Priyanka [facility] Body height 2020-03-21 20:03:00 170.2 cm [facility] Body weight 2020-03-21 20:03:00 76.204 kg [facility] BMI 2020-03-21 20:03:00 26.31 kg/m2 [facility] Systolic blood 2020-03-07 20:50:00 118 mm[Hg] [facility] Diastolic blood 2020-03-07 20:50:00 65 mm[Hg] [facility] Heart rate 2020-03-07 20:50:00 85 /min [facility] Body temperature 2020-03-07 20:50:00 36.39 Priyanka [facility] Respiratory rate 2020-03-07 20:50:00 18 /min [facility] Oxygen saturation in 2020-03-07 20:50:00 95 /min [facility]ial blood by [employer] [facility] Pulse oximetry Branch Body height 2020-03-05 02:35:00 172.7 cm [facility] Body weight 2020-03-05 02:35:00 73.483 kg [facility] BMI 2020-03-05 02:35:00 24.63 kg/m2 [facility] Systolic blood 2020-03-02 15:49:00 122 mm[Hg] [facility] Diastolic blood 2020-03-02 15:49:00 81 mm[Hg] [facility] Heart rate 2020-03-02 15:49:00 89 /min [facility] Body temperature 2020-03-02 15:49:00 37.06 Priyanka [facility] Respiratory rate 2020-03-02 15:49:00 19 /min [facility] Oxygen saturation in 2020-03-02 15:49:00 96 /min [facility] Arterial blood by [place] [employer] [facility] Pulse [facility]xim[facility] Body height 2020-03-01 00:54:00 170.2 cm [facility] Body weight 2020-03-01 00:54:00 76.975 kg [facility] BMI 2020-03-01 00:54:00 26.58 kg/m2 [facility] Systolic blood 2020-01-17 21:08:00 116 mm[Hg] [facility] Diastolic blood 2020-01-17 21:08:00 78 mm[Hg] [facility] pressure [facility] Heart rate 2020-01-17 21:08:00 88 /min [facility] Body temperature 2020-01-17 21:08:00 36.72 Priyanka [facility] Respiratory rate 2020-01-17 21:08:00 18 /min [facility] Oxygen saturation in 2020-01-17 21:08:00 98 /min [facility] Arterial blood by [facility] Pulse oximetry [facility] Body height 2020-01-16 06:21:00 172.7 cm [facility] Body weight 2020-01-16 04:35:00 83.462 kg [facility] BMI 2020-01-16 04:35:00 27.98 kg/m2 [facility] Procedures Procedure Date / Time Performing Clinician Source Performed EXTERNAL PROVIDER RECORDS 2021-11-19 06:01:00 Doctor Unassigned, [facility] POCT GLUCOSE (AUTOMATED) 2021-11-02 22:49:00 Aida Shah [facility] POCT GLUCOSE (AUTOMATED) 2021-11-02 17:06:00 Aida Shah [facility] POCT GLUCOSE (AUTOMATED) 2021-11-02 13:30:00 Aida Sahh [facility] TROPONIN I 2021-11-02 09:29:00 Alexandra Hdz [facility] BASIC METABOLIC PANEL 2021-11-02 09:29:00 Sridhar Gordon [facility] (NA, K, CL, CO2, GLUCOSE, Medica l Branch BUN, CREATININE, CA) CBC WITH DIFF 2021-11-02 09:29:[address] [facility] N-TERMINAL PRO-BNP 2021-11-02 09:29:00 [facility] POCT GLUCOSE (AUTOMATED) 2021-11-02 01:27:00 Aida Shah [facility] POCT GLUCOSE (AUTOMATED) 2021-11-01 17:37:00 [place], Aida [facility] POCT GLUCOSE (AUTOMATED) 2021-11-01 13:40:00 [facility] ([facility]OMATED) 2021-11-01 01:10:00 [facility] PO[facility]SE (AUTOMATED) 2021-10-31 22:28:00 [facility] PO[facility]UCOSE (AUTOMATED) 2021-10-31 17:29:00 Martha Drake [facility] TROPONIN I 2021-10-31 16:25:00 Alexandra Hdz [facility] TRANSTHORACIC ECHO (TTE) 2021-10-31 15:53:00 Alexandra Hdz [facility] COMPLETE W/ CONTRAST [facility] POCT GLUCOSE (AUTOMATED) 2021-10-31 13:39:00 [facility] 2021-10-31 10:08:00 [facility] BAS[facility]OLIC PANEL 2021-10-31 10:08:00 [facility] (NA, K, CL, CO2, GLUCOSE, Medica l Branch BUN, CREATININE, CA) LIPID PANEL ([id number])(TOTAL 2021-10-31 10:08:00 Alexandra Hdz [facility] CHOLESTEROL, [facility] TRIGLYCERIDES, HDL) CBC WITH DIFF 2021-10-31 10:08:00 [facility] URINALYSIS 2021-10-31 10:08:00 [facility] N-TERMINAL PRO-BNP 2021-10-31 10:08:00 Alexandra Hdz [facility] TROPONIN I 2021-10-31 06:17:00 [facility]ST 1 VW 2021-10-31 01:30:[address] [facility] LIPASE 2021-10-31 01:25:[address] [facility] TROPONIN I 2021-10-31 01:25:[address] [facility] COMP. METABOLIC PANEL 2021-10-31 01:25:00 Martha Drake [facility] ([id number]) Medical Branch CBC WITH DIFF 2021-10-31 01:25:[address] [facility] GLYCOSYLATED HEMOGLOBIN 2021-10-31 01:25:00 Sarah Harrell [facility] (A1C) [facility] PROTHROMBIN TIME / INR 2021-10-31 01:25:00 Martha Drake [facility] ACTIVATED PARTIAL 2021-10-31 01:25:00 Martha Drake [facility] N-TERMINAL PRO-BNP 2021-10-31 01:25:00 Martha Drake [facility] COVID-19 (ID NOW RAPID 2021-10-31 01:25:00 Martha Drake [facility] TESTING) Medical Branch LAB ONLY COVID 2021-10-31 01:25:00 Martha Drake [facility] INTERPRETATION [facility] HB ECG ROUTINE & RHYTHM 2021-10-31 01:20:03 Martha Drake [facility] STRIP [facility] URINALYSIS 2021-04-25 21:01:00 Nallely Zhao [facility] XR LUMBAR SPINE 2 VW 2021-04-25 18:41:00 [facility]ly [facility] HIPS 2 VW LEFT 2021-04-25 18:41:00 Nallely Zhao [facility] CONSENT/REFUSAL FOR 2021-04-25 15:43:06 Doctor Unassigned, [facility] DIAGNOSIS AND TREATMENT [facility] CT CERVICAL SPINE WO 2020-06-26 09:35:01 Martha Drake [facility] LUMBAR SPINE WO 2020-06-26 09:35:01 Martha Drake [facility] CT THORACIC SPINE WO 2020-06-26 09:35:01 Martha Drake [facility] CONTRAST [facility] UNILATERAL DUPLEX SCAN OF 2020-05-24 14:53:40 [facility] LAB Medical [facility] ranch XR ANKLE 3+ VW LEFT 2020-05-24 13:22:26 Charanjit Heck [facility] HEPATIC FUNCTION PANEL 2020-05-24 13:13:00 Charanjit Heck [facility] ([id number]) (ALB,T.PRO,BILI Medical Branch T,BU/BC,ALT,AST,ALK PHOS) BASIC METABOLIC PANEL 2020-05-24 13:13:00 Charanjit Heck [facility] (NA, K, CL, CO2, GLUCOSE, Medica l Branch BUN, CREATININE, CA) CBC WITH DIFFERENTIAL 2020-05-24 13:13:00 Charanjit Heck [facility] PROTHROMBIN TIME / INR 2020-05-24 13:13:00 Charanjit Heck [facility] ACTIVATED PARTIAL 2020-05-24 13:13:00 Charanjit Heck [facility] THRMPLAS [facility] NOTICE OF PRIVACY 2020-05-24 11:38:26 Doctor Unassigned, [facility] PRACTICES [place] [facility] CONSENT/REFUSAL FOR 2020-05-24 11:35:52 Doctor Unassrose mary, [facility] DIAGNOSIS AND TREATMENT [place] [facility] POCT GLUCOSE (AUTOMATED) 2020-03-23 22:32:00 Jamel Flores [facility] POCT GLUCOSE (AUTOMATED) 2020-03-23 18:07:00 Jamel Flores [facility] POCT GLUCOSE (AUTOMATED) 2020-03-23 14:57:00 Jamel Flores [facility] ECHO ROUTINE W/DOPPLER 2020-03-23 13:33:57 Tereza Cano [facility] COLOR [facility] EKG-12 LEAD 2020-03-23 12:56:59 Jamel Flores [facility] MAGNESIUM 2020-03-23 11:15:00 Jerome [facility] TROPONIN I 2020-03-23 11:15:00 Jerome [facility] BASIC METABOLIC PANEL 2020-03-23 11:15:00 [facility] ([facility], K, CL, CO2, GLUCOSE, Medica l Branch BUN, CREATININE, CA) PROTHROMBIN TIME / INR 2020-03-23 11:15:00 Tereza Cano [facility] ACTIVATED PARTIAL 2020-03-23 11:15:00 Jerome [facility] EKG-12 LEAD 2020-03-23 07:51:19 Jamel Flores [facility] MAGNESIUM 2020-03-23 05:55:00 Jerome [facility] TROPONIN I 2020-03-23 05:55:00 Jerome [facility] BASIC METABOLIC PANEL 2020-03-23 05:55:00 Jerome [facility] (NA, K, CL, CO2, GLUCOSE, Medica l Branch BUN, CREATININE, CA) LIPID PANEL ([id number])(TOTAL 2020-03-23 05:55:00 [facility] CHOLESTEROL, [facility] TRIGLYCERIDES, HDL) PROTHROMBIN TIME / INR 2020-03-23 02:55:00 Sallie Eckert [facility] ACTIVATED PARTIAL 2020-03-23 02:55:00 [facility] XR CHEST 2 VW 2020-03-23 01:52:37 Esteban Singletary [facility] CORONAVIRUS COVID-19 2020-03-23 00:50:00 Esteban Singletary [facility] TESTING [facility] FERRITIN SERUM 2020-03-22 23:36:00 [facility] 2020-03-22 23:36:00 Esteban Singletary [facility] COMP. METABOLIC PANEL 2020-03-22 23:36:00 Esteban Singletary [facility] ([id number]) Medical Branch IRON PANEL 2020-03-22 23:36:00 Jerome [facility] CBC WITH DIFFERENTIAL 2020-03-22 23:36:00 Esteban Singletary [facility] N-TERMINAL PRO-BNP 2020-03-22 23:36:00 Esteban Singletary [facility] EKG-12 LEAD 2020-03-22 23:08:[address] [facility] EKG-12 LEAD 2020-03-22 23:08:[address] [facility] XR CHEST 1 VW 2020-03-21 20:42:[address] [facility] LACTIC ACID WHOLE BLOOD 2020-03-21 20:38:00 Myles [facility] LIPASE 2020-03-21 20:19:[address] [facility] TROPONIN I 2020-03-21 20:19:[address] [facility] COMP. METABOLIC PANEL 2020-03-21 20:19:00 Myles Harry [facility] ([id number]) [facility] PROTHROMBIN TIME / INR 2020-03-21 20:19:00 Myles Harry [facility] N-TERMINAL PRO-BNP 2020-03-21 20:19:00 Myles Harry [facility] CORONAVIRUS COVID-19 2020-03-21 20:19:00 Kamryn Myles [facility] TESTING [facility] EKG-12 LEAD 2020-03-21 20:11:[address] [facility] POCT GLUCOSE (AUTOMATED) 2020-03-07 20:56:00 Sarah [facility] POCT GLUCOSE (AUTOMATED) 2020-03-07 15:34:00 [facility] PO[facility] GLUCOSE (AUTOMATED) 2020-03-07 12:56:00 [facility] URIC ACID 2020-03-07 10:14:[address] [facility] TROPONIN I 2020-03-07 10:14:00 Lulu Harris [facility] BASIC METABOLIC PANEL 2020-03-07 10:14:00 Julio Cesar [facility] (NA, K, CL, CO2, GLUCOSE, Medica l Branch BUN, CREATININE, CA) CBC WITH DIFFERENTIAL 2020-03-07 10:14:00 Julio Cesar [facility] N-TERMINAL PRO-BNP 2020-03-07 10:14:00 Lulu Harris [facility] POCT GLUCOSE (AUTOMATED) 2020-03-06 21:16:00 Edconsuelo [facility] POCT GLUCOSE (AUTOMATED) 2020-03-06 16:10:00 Edionrosalio [facility] POCT GLUCOSE (AUTOMATED) 2020-03-06 12:38:00 Edionrosalio [facility] TROPONIN I 2020-03-06 08:51:00 Lulu Harris [facility] BASIC METABOLIC PANEL 2020-03-06 08:51:00 [facility] (NA, K, CL, CO2, GLUCOSE, Medica l Branch BUN, CREATININE, CA) CBC WITH DIFFERENTIAL 2020-03-06 08:51:00 Edionrosalio [facility] POCT GLUCOSE (AUTOMATED) 2020-03-06 01:16:00 Edionrosalio [facility] TROPONIN I 2020-03-05 23:25:00 Edconsuelo [facility] POCT GLUCOSE (AUTOMATED) 2020-03-05 21:14:00 Edionrosalio [facility] POCT GLUCOSE (AUTOMATED) 2020-03-05 16:39:00 Edionrosalio [facility] POCT GLUCOSE (AUTOMATED) 2020-03-05 12:47:00 Edionrosalio [facility] TROPONIN I 2020-03-05 09:50:00 [facility] BASIC METABOLIC PANEL 2020-03-05 09:50:00 [facility] (NA, K, CL, CO2, GLUCOSE, Medica l Branch BUN, CREATININE, CA) CBC WITH DIFFERENTIAL 2020-03-05 09:50:00 Edconsuelo [facility] EKG-12 LEAD 2020-03-05 00:36:54 Bobo Urrutia [facility] EKG-12 LEAD 2020-03-05 00:31:03 Bobo Urrutia [facility] CORONAVIRUS COVID-19 2020-03-05 00:03:00 Charanjit Heck [facility] TESTING [facility] XR CHEST 1 VW 2020-03-04 23:58:59 Charanjit Heck [facility] LIPASE 2020-03-04 23:29:00 Charanjit Heck [facility] TROPONIN I 2020-03-04 23:29:00 Charanjit Heck [facility] HEPATIC FUNCTION PANEL 2020-03-04 23:29:00 Charanjit Heck [facility] ([id number]) (ALB,T.PRO,BILI Medical Branch T,BU/BC,ALT,AST,ALK PHOS) BASIC METABOLIC PANEL 2020-03-04 23:29:00 Charanjit Heck [facility] (NA, K, CL, CO2, GLUCOSE, Medica l Branch BUN, CREATININE, CA) CBC WITH DIFFERENTIAL 2020-03-04 23:29:00 Charanjit Heck [facility] PROTHROMBIN TIME / INR 2020-03-04 23:29:00 Charanjit Heck [facility] ACTIVATED PARTIAL 2020-03-04 23:29:00 [facility] N-TERMINAL PRO-BNP 2020-03-04 23:29:00 Charanjit Heck [facility] EKG-12 LEAD 2020-03-04 23:15:42 Charanjit Heck [facility] EKG-12 LEAD 2020-03-04 23:10:23 Charanjit Heck [facility] EMERGENCY DEPARTMENT 2020-03-04 05:01:00 Doctor Unassigned, [facility] DOCUMENTS [facility] POCT GLUCOSE (AUTOMATED) 2020-03-02 15:52:00 Lulu [facility] POCT GLUCOSE (AUTOMATED) 2020-03-02 12:39:00 Lulu Harris [facility] MAGNESIUM 2020-03-02 08:57:00 Ivory Leon [facility] BASIC METABOLIC PANEL 2020-03-02 08:57:00 Carolyn alek [facility] (NA, K, CL, CO2, GLUCOSE, Medica l Branch BUN, CREATININE, CA) N-TERMINAL PRO-BNP 2020-03-02 08:57:00 Carolyn [facility] POCT GLUCOSE (AUTOMATED) 2020-03-01 20:39:00 Lulu [facility] MAGNESIUM 2020-03-01 08:43:00 Lulu Harris [facility] TROPONIN I 2020-03-01 08:43:00 Carolyn [facility] BASIC METABOLIC PANEL 2020-03-01 08:43:00 Lulu Harris [facility] (NA, K, CL, CO2, GLUCOSE, Medica l Branch BUN, CREATININE, CA) CBC WITH DIFFERENTIAL 2020-03-01 08:43:00 Lulu Harris [facility] N-TERMINAL PRO-BNP 2020-03-01 08:43:00 Carolyn [facility] VITAMIN B12, LEVEL 2020-03-01 03:49:00 Carolyn [facility] FOLATE 2020-03-01 03:49:00 Carolyn [facility] SEDIMENTATION RATE 2020-03-01 03:49:00 Carolyn [facility] POCT GLUCOSE (AUTOMATED) 2020-03-01 03:39:00 Lulu [facility] PHOSPHORUS 2020-03-01 02:28:00 Lulu Harris [facility] URIC ACID 2020-03-01 02:28:00 Carolyn [facility] TROPONIN I 2020-03-01 02:28:00 Carolyn [facility] HEPATIC FUNCTION PANEL 2020-03-01 02:28:00 Ivory Leon [facility] ([id number]) (ALB,T.PRO,BILI Medical Branch T,BU/BC,ALT,AST,ALK PHOS) PROTHROMBIN TIME / INR 2020-03-01 02:28:00 Carolyn alek [facility] N-TERMINAL PRO-BNP 2020-03-01 02:28:00 Lulu Harris [facility] PROCALCITONIN 2020-03-01 02:28:00 Carolyn [facility] EKG-12 LEAD 2020-03-01 01:54:29 Carolyn [facility] EKG-12 LEAD 2020-02-29 23:16:21 Bobo Urrutia [facility] XR CHEST 1 VW COVID 2020-02-29 23:14:25 Bobo Urrutia [facility] EKG-12 LEAD 2020-02-29 23:13:50 Bobo Urrutia [facility] LACTIC ACID WHOLE BLOOD 2020-02-29 22:21:00 Bobo Urrutia [facility] CORONAVIRUS COVID-19 2020-02-29 22:20:00 Bobo Urrutia [facility] CREATINE KINASE 2020-02-29 22:14:00 Carolyn [facility] URIC ACID 2020-02-29 22:14:00 Carolyn [facility] LIPASE 2020-02-29 22:14:00 Bobo Urrutia [facility] MAGNESIUM 2020-02-29 22:14:00 Carolyn [facility] TROPONIN I 2020-02-29 22:14:00 Bobo Urrutia [facility] THYROID STIMULATING 2020-02-29 22:14:00 Carolyn alek [facility] HORMONE [facility] BASIC METABOLIC PANEL 2020-02-29 22:14:00 Bobo Urrutia [facility] (NA, K, CL, CO2, GLUCOSE, Medica l Branch BUN, CREATININE, CA) CBC WITH DIFFERENTIAL 2020-02-29 22:14:00 Bobo Urrutia [facility] GLYCOSYLATED HEMOGLOBIN 2020-02-29 22:14:00 Carolyn [facility] (A1C) [facility] N-TERMINAL PRO-BNP 2020-02-29 22:14:00 Carolyn alek [facility] EKG-12 LEAD 2020-02-29 21:59:12 Bobo Urrutia [facility] EKG-12 LEAD 2020-02-29 21:48:49 Bobo Urrutia [facility] EMERGENCY DEPARTMENT 2020-02-29 05:01:00 Doctor Unassigned, [facility] DOCUMENTS [facility] [facility] POCT GLUCOSE (AUTOMATED) 2020-01-17 18:15:00 Julio Cesar [facility] TROPONIN I 2020-01-17 16:31:00 Julio Cesar [facility] ACTIVATED PARTIAL 2020-01-17 16:31:00 Ivory Leon [facility] POCT GLUCOSE (AUTOMATED) 2020-01-17 11:56:00 Julio Cesar [facility] TROPONIN I 2020-01-17 09:52:00 Julio Cesar [facility] BASIC METABOLIC PANEL 2020-01-17 09:52:00 Julio Cesar [facility] (NA, K, CL, CO2, GLUCOSE, Medica l Branch BUN, CREATININE, CA) CBC WITH DIFFERENTIAL 2020-01-17 09:52:00 [facility] 2020-01-17 09:52:00 Julio Cesar [facility] POCT GLUCOSE (AUTOMATED) 2020-01-16 23:59:00 Julio Cesar [facility] EKG-12 LEAD 2020-01-16 22:15:50 Julio Cesar [facility] TROPONIN I 2020-01-16 20:04:00 Julio Cesar [facility] ACTIVATED PARTIAL 2020-01-16 20:04:00 Ayo Scruggs [facility] POCT GLUCOSE (AUTOMATED) 2020-01-16 17:05:00 Julio Cesar [facility] POCT GLUCOSE (AUTOMATED) 2020-01-16 13:38:00 Julio Cesar [facility] TROPONIN I 2020-01-16 11:11:00 [facility] LIPID PANEL ([id number])(TOTAL 2020-01-16 11:11:00 [facility] CHOLESTEROL, [facility] TRIGLYCERIDES, HDL) ACTIVATED PARTIAL 2020-01-16 11:11:00 [facility] 2020-01-16 05:48:18 Charanjit Heck [facility] XR CHEST 1 VW 2020-01-16 04:46:44 Umang Charanjit [facility] TROPONIN I 2020-01-16 04:38:00 Umang Charanjit [facility] HEPATIC FUNCTION PANEL 2020-01-16 04:38:00 Umang Charanjit [facility] ([id number]) (ALB,T.PRO,BILI Medical Branch T,BU/BC,ALT,AST,ALK PHOS) BASIC METABOLIC PANEL 2020-01-16 04:38:00 [facility]wood[facility] (NA, K, CL, CO2, GLUCOSE, Medica l Branch BUN, CREATININE, CA) CBC WITH DIFFERENTIAL 2020-01-16 04:38:00 [facility]angSaint [facility] KirkwoodCharanjit [facility] GLYCOSYLATED HEMOGLOBIN 2020-01-16 04:38:00 [facility] PROTHROMBIN TIME / INR 2020-01-16 04:38:00 Charanjit Heck [facility] ACTIVATED PARTIAL 2020-01-16 04:38:00 Umang [facility] N-TERMINAL PRO-BNP 2020-01-16 04:38:00 Charanjit Heck [facility] EKG-12 LEAD 2020-01-16 04:37:48 Umang Charanjit [facility] EKG-12 LEAD 2020-01-16 04:35:35 [facility] FOR RELEASE 2019-07-12 05:01:00 Doctor Unassigned, [facility] [place] [facility] Encounters Start End Encounter Admission Attending Care Care Encounter Source Date/Time Date/Time Type Type Clinicians Facility Department ID 2021-12-16 [id number] 11:30:00 Jim [facility] 2021-12-16 Outpatient [facility]MLC [facility] [id number] 09[facility]19[facility]01 [facility] 2021-12-11 Outpatient Lester STTONYA STLMLC [id number] 14:38:21 [facility]e [facility] 2021-12-11 Outpatient Lester STMAEVELC STLMLC [id number] 11:50:18 [facility] 2021-09-16 Emergency [facility] [id number] Univers 00:23:34 ity [facility] 2021-09-13 Emergency [facility] [id number] Univers [facility]-13 Emergency [facility] [id number] Univers 05:40:48 [facility] 2021-12-25 2021-12-25 Inpatient ATTAR, [facility] [id number] [place] 00:00:00 00:00:[address] 2021-12-19 2021-12-25 Inpatient LAUREN, [facility] [id number] [place] 00:00:00 00:00:00 JAYSON [address] 2021-12-24 2021-12-24 [id number] 2021-12-20 2021-12-20 Inpatient ATTAR, [facility] [id number] [place] 00:00:00 00:00:[address] 2021-12-17 2021-12-17 ambulatory [facility]ML[facility] [id number] [facility] 2021-12-16 2021-12-16 [facility] [id number] [facility] 2021-11-19 2021-11-19 Orders Doctor JONES [id number] Univers 00:00:00 00:00:00 Only Unassigned, ASHLEIGH [id number] ity of [place] [facility] [id number] [place] as [id number] [facility] 009 Branch 2021-11-04 2021-11-04 Transition SHAREE Maria [id number] Univers 00:00:00 00:00:00 of Care Supa [place] [id number] [id number] [id number] [facility] 403 Branch 2021-10-30 2021-11-02 Inpatient X ALYSSA [facility] ZEFERINO [id number] Univers 19:14:00 18:15:00 AIDA ity of [facility] 2021-10-30 2021-11-02 [facility] [id number] Univers 19:14:00 18:15:00 Encounter Aida Shah [id number] ity of [place] [id number] [facility] [place] [id number] [facility] [address] 2021-05-17 2021-05-17 Letter ROBERT Monae 1.2.840.114 [id number] Univers 00:00:00 00:00:00 (Out) Patient ASHLEIGH 350.1.13.10 it y of Does Not HOSPITAL [place] A [phone] [facility] [address] 2021-04-25 2021-04-25 Emergency Cece, TRAUMA 1.2.960.365 [id number] Univers 10:43:00 17:38:[address] [facility] 350.1.13.10 i ty of [place] [id number] [facility] [address] 2020-06-26 2020-06-26 Emergency [facility] 1.2.087.785 [id number] 03:50:00 06:45:00 [facility] 350.1.13.10 [place] 4.2.7.2.686 [place] [id number] 084 2020-06-26 2020-06-26 Emergency [facility] 1.2.057.743 [id number] [facility] 03:50:00 06:45:00 Martha Cortez 350.1.13.10 ity of [place] 4.2.7.2.686 [facility] [phone] [address] 2020-05-24 2020-05-24 Emergency [place], [facility] 1.2.767.840 [id number] 06:40:47 10:54:00 Charanjit Cortez 350.1.13.10 [place] 4.2.7.2.686 [place] [phone] [facility] 2020-05-24 2020-05-24 Emergency [facility] 1.2.372.718 [id number] [facility] 06:40:47 10:54:00 Charanjit Cortez 350.1.13.10 i ty of [place] 4.2.7.2.686 [facility] [phone] [address] 2020-03-29 2020-03-29 Jamel Dunn 1.2.840.114 [id number] 00:00:00 00:00:00 (Out) T Ashleigh 350.1.13.10 [facility] 4.2.7.2.686 [id number] [facility] 2020-03-29 2020-03-29 Jamel Dunn 1.2.840.114 [id number] [facility] 00:00:00 00:00:00 (Out) T Ashleigh 350.1.13.10 it y of Hospital 4.2.7.2.686 [facility] [id number] [address] 2020-03-26 2020-03-26 Transition Sharee George 1.2.840.114 [id number] 00:00:00 00:00:00 of Care Sherrell Grewal 350.1.13.10 [place] 4.2.7.2.686 [id number] [facility] 2020-03-26 2020-03-26 Transition Sharee George 1.2.840.114 [id number] [facility] 00:00:00 00:00:00 of Care Sherrell Grewal 350.1.13.10 it [place] [id number] [facility] [address] 2020-03-22 2020-03-23 Emergency Sallie Eckert 1.2.840. 114 [id number] Univers 18:02:47 21:55:00 Jamel Flores 350.1.13.10 ity of [facility] 4.2.7.2.686 [place] [phone] [facility] [address] 2020-03-22 2020-03-23 Outpatient X JAMEL FLORES [facility] [id number] Univers 18:02:47 21:55:00 ity of [facility] 2020-03-21 2020-03-21 Emergency [facility] 1.2.840.114 [id number] Univers 15:02:08 17:16:00 Myles Sharon Cortez 350.1.13.10 i ty of [place] 4.2.7.2.[place] [id number] [address] 2020-03-21 2020-03-21 [facility] [id number] Univers 15:02:08 17:16:00 MYLES ity of [facility] 2020-03-13 2020-03-13 Outpatient Raju_P MMG MMG [id number] [place] 05:24:00 05:24:00 [facility] 2020-03-08 2020-03-08 Transition Sharee Cool 1.2.840.114 [id number] Univers 00:00:00 00:00:00 of Care Prema Grewal 350.1.13.10 i [place] of [place] [id number] [facility] [address] 2020-03-04 2020-03-07 [facility] Charanjit Heck [facility] 1.2.840.1 14 [id number] Univers 18:01:05 18:00:00 Encounter Sarah Harrell 350.1.13.10 ity of [place].2.[place] [phone] [place] [address] [place] 2020-03-04 2020-03-07 Inpatient X JULIO CESAR [facility] [id number] Univers 18:01:05 18:00:00 SARAH ity [facility] 2020-03-03 2020-03-03 Transition Sharee Silva 1.2.840.114 [id number] Univers 00:00:00 00:00:00 of Care Isatu Grewal 350.1.13.10 it [place] of [place] [phone] [facility] [address] 2020-02-29 2020-03-02 [facility] Bobo Urrutia [facility] 1.2.840.11 [id number] Univers 16:53:09 12:18:00 Encounter Lulu Harris 350.1.13.10 ity of [place] [id number] [facility] [address] 2020-02-29 2020-03-02 Inpatient X STEVEN [facility] [id number] Univers 16:53:09 12:18:00 LULU [facility] 2020-02-15 2020-02-15 Outpatient R CHAVA [facility] [id number] Univers 11:30:00 11:30:00 THUYDANIELLA [facility] 2020-02-15 2020-02-15 [facility] 1.2.840.114 [id number] Univers 08:13:42 08:43:42 ne Visit Kathrin Cortez 350.1.13.10 [place] [phone] Ca dical nal 220 [facility] 2020-01-18 2020-01-18 Transition Sharee Harvey 1.2.840.114 [id number] Univers 00:00:00 00:00:00 of Care Ana M Grewal 350.1.13.10 it [place] of [place] [phone] [address] 2020-01-15 2020-01-17 [facility] Charanjit Heck [facility] 1.2.840.1 14 [id number] Univers 22:33:37 16:58:00 Encounter Sarah Harrell 350.1.13.10 ity of [place] 4.2.7.2.686 [facility] [place] [phone] [facility] [address] 2020-01-15 2020-01-17 Outpatient Marybel HARRELL [facility] [id number] Univers 22:33:37 16:58:00 MERCY ity of [facility] 2019-10-07 2019-10-07 [facility] [id number] 10:48:00 10:48:00 [facility] Outpati ent Clinics 2019-10-05 2019-10-05 [facility] [id number] 16:06:00 16:06:00 [facility] 2019-07-27 2019-07-27 Alec Betancourt [facility] 1.2.840.114 [id number] Univers 00:00:00 00:00:00 Kathrin Cortez 350.1.13.10 i ty [facility] 4.2.7.2.686 [facility] [phone] [facility] 220 [facility] 2019-07-12 2019-07-12 [facility] [id number] 16:24:00 16:24:00 [facility] Outpati ent [facility] 2019-07-12 2019-07-12 Orders Doctor JONES 1.2.840.114 [id number] Univers 00:00:00 00:00:00 Only Unassigned, ASHLEIGH 350.1.13.10 ity of [place] [facility] 4.2.7.2.686 [place] [phone] [facility] [address] 2019-07-06 2019-07-06 [facility] [id number] 14:00:00 14:00:00 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 LEAD ROUTINE [id number] 22:37:57 Test Item Value Reference Range Interpretation Comments Lab Interpretation (test code = Abnormal 27432-1) [facility])2021-11-02 17:43:02 Test Item Value Reference Range Interpretation Comments POCT GLU (test code = 7841232456) 264 mg/dL 70-110 H Lab Interpretation (test code = Abnormal 46700-7) [facility] [id number] 15:07:47 Test Item Value Reference Interpretation Comments Range TROPONIN I (test 0.064 ng/mL See_Comment H [Automated code = 0109706864) message] The system which generated this result [...] biotin. Lab Interpretation Abnormal (test code = 85648-8) [facility] [id number] 15:04:26 Test Item Value Reference Range Interpretation Comments NT-proBNP (test code 800 pg/mL See_Comment H [Autom ated = 1633229796) message] The system which generated this result transmitted reference range : <=450. The reference range was not used to interpret this result as normal/abnormal . ALYSSA (test code = ALYSSA) Biotin has been reported to cause a negative bias, interpret results relative to patient's use of biotin. Lab Interpretation Abnormal (test code = 37702-0) [facility])2021-11-02 13:36:38 Test Item Value Reference Range Interpretation Comments POCT GLU (test code = 3921003084) 185 mg/dL 70-110 H Lab Interpretation (test code = Abnormal 26827-4) [facility] METABOLIC PANEL (NA, K, CL, CO2, GLUCOSE, BUN, CREATININE, CA)2021-11-02 10:26:43 Test Item Value Reference Range Interpretation Comments NA (test code = 136 mmol/L 135-145 8289375822) K (test code = 4.0 mmol/L 3.5-5.0 1377222919) CL (test code = 99 mmol/L 98-108 2157488499) CO2 TOTAL (test code = 27 mmol/L 23-31 8300586177) AGAP (test code = 2-16 2290929024) BUN (test code = 30 mg/dL 7-23 H 0354873517) GLUCOSE (test code = 165 mg/dL 70-110 H 0994576394) CREATININE (test code = 1.42 mg/dL 0.60-1.25 H 8699537169) CALCIUM (test code = 9.5 mg/dL 8.6-10.6 2678900312) eGFR (test code = mL/min/1.73m2 5925203522) ALYSSA (test code = ALYSSA) Association of [...] tests). Lab Interpretation Abnormal (test code = 31364-6) [facility] WITH [id number] 10:01:58 Test Item Value Reference Range Interpretation Comments WBC (test code = See_Comment [Automated 9745-2) message] The sy stem which generated this result transmitted reference range : 4.20 - 10.70 10*3/?L. The reference range was not used to interpret this result as normal/abnormal . RBC (test code = See_Comment L [Automated 857-8) message] The sy stem which generated this [...] RDW-SD (test code = 39.8 fL 38.5-51.6 85757-0) RDW-CV (test code = 11.5 % 12.1-15.4 L 788-0) PLT (test code = See_Comment [Automated 777-3) message] The sy stem which generated this result transmitted reference range : 150 - 328 10*3/ ?L. The reference r corey was not used to interpret this result as normal/abnormal . MPV (test code = 10.5 fL 9.8-13.0 32766-0) NRBC/100 WBC (test See_Comment [Automat ed code = 7016347633) message] The system which generated this result transmitted reference range : 0.0 - 10.0 /100 WBCs. The refer ence range was not u sed to interpret th is result as normal/abnormal . NRBC x10^3 (test code <0.01 See_Comment [Auto mated = 3136161635) message] The s ystem which generated this result transmitted reference range : 10*3/?L. The reference range was not used to interpret this result as normal/abnormal . GRAN MAT (NEUT) % 59.3 % (test code = 770-8) IMM GRAN % (test code 0.30 % = 1551706642) LYMPH % (test code = 25.0 % 736-9) MONO % (test code = 10.7 % 5905-5) EOS % (test code = 4.1 % 713-8) BASO % (test code = 0.6 % 706-2) GRAN MAT x10^3(ANC) 4.19 10*3/uL 1.99-6.95 (test code = 8974149188) IMM GRAN x10^3 (test <0.03 0.00-0.06 code = 0097925513) LYMPH x10^3 (test code 1.77 10*3/uL 1.09-3.23 = 731-0) MONO x10^3 (test code 0.76 10*3/uL 0.36-1.02 = 742-7) EOS x10^3 (test code = 0.29 10*3/uL 0.06-0.53 711-2) BASO x10^3 (test code 0.04 10*3/uL 0.01-0.09 = 704-7) Lab Interpretation Abnormal (test code = 14962-4) [facility] GLUCOSE (AUTOMATED)2021-11-02 01:29:56 Test Item Value Reference Range Interpretation Comments POCT GLU (test code = 3606127764) 167 mg/dL 70-110 H Lab Interpretation (test code = Abnormal 70512-9) [facility] GLUCOSE (AUTOMATED)2021-11-01 17:40:19 Test Item Value Reference Range Interpretation Comments POCT GLU (test code = 7931746283) 193 mg/dL 70-110 H Lab Interpretation (test code = Abnormal 90106-1) [facility] GLUCOSE (AUTOMATED)2021-11-01 13:44:28 Test Item Value Reference Range Interpretation Comments POCT GLU (test code = 4465736511) 200 mg/dL 70-110 H Lab Interpretation (test code = Abnormal 81826-6) [facility] GLUCOSE (AUTOMATED)2021-11-01 01:38:43 Test Item Value Reference Range Interpretation Comments POCT GLU (test code = 7518215653) 177 mg/dL 70-110 H Lab Interpretation (test code = Abnormal 92469-7) [facility] GLUCOSE (AUTOMATED)2021-10-31 22:39:43 Test Item Value Reference Range Interpretation Comments POCT GLU (test code = 0194522972) 174 mg/dL 70-110 H Lab Interpretation (test code = Abnormal 64811-3) [facility] GLUCOSE (AUTOMATED)2021-10-31 17:40:22 Test Item Value Reference Range Interpretation Comments POCT GLU (test code = 2553885104) 224 mg/dL 70-110 H Lab Interpretation (test code = Abnormal 82383-3) [facility] [id number] 17:14:58 Test Item Value Reference Interpretation Comments Range TROPONIN I (test 0.080 ng/mL See_Comment H [Automated code = 4058111186) message] The system which generated this result [...] biotin. Lab Interpretation Abnormal (test code = 37834-7) [facility] [id number] 15:14:03 Test Item Value Reference Range Interpretation Comments NT-proBNP (test code 474 pg/mL See_Comment H [Autom ated = 4428155952) message] The system which generated this result transmitted reference range : <=450. The reference range was not used to interpret this result as normal/abnormal . ALYSSA (test code = ALYSSA) Biotin has been reported to cause a negative bias, interpret results relative to patient's use of biotin. Lab Interpretation Abnormal (test code = 39663-1) [facility]kinLIPID PANEL (68421)(TOTAL CHOLESTEROL, TRIGLYCERIDES, HDL)2021-10-31 15:05:19 Test Item Value Reference Range Interpretation Comments CHOL (test code = 101 mg/dL 120-200 L 0007702783) HDL (test code = 36 mg/dL >40 L 3207788649) HDLC RATIO (test code = See_Comment [Au tomated message] 6203672964) The system [employer] generated this result transmit diamante reference range : <=5.0. The refe rence range was not u sed to interpret th is result as normal/abnormal . TRIG (test code = 143 mg/dL 30-170 4579265066) LDL CHOL (test code = 36 mg/dL See_Comment [Auto mated message] 83255-8) The system [employer] generated this result transmit diamante reference range : <=160. The refe rence range was not u sed to interpret th is result as normal/abnormal . VLDL (test code = 29 mg/dL 5-60 0498752311) Lab Interpretation (test Abnormal code = 28723-8) [facility] GLUCOSE (AUTOMATED)2021-10-31 13:44:00 Test Item Value Reference Range Interpretation Comments POCT GLU (test code = 2459476181) 150 mg/dL 70-110 H Lab Interpretation (test code = Abnormal 55946-2) [facility] with [id number] 11:13:14 Test Item Value Reference Range Interpretation [...] RDW-SD (test code = 39.9 fL 38.5-51.6 99136-9) RDW-CV (test code = 11.8 % 12.1-15.4 L 788-0) PLT (test code = See_Comment [Automated 777-3) message] The sy stem which generated this result transmitted reference range : 150 - 328 10*3/ ?L. The reference r corey was not used to interpret this result as normal/abnormal . MPV (test code = 11.0 fL 9.8-13.0 11327-7) NRBC/100 WBC (test See_Comment [Automat ed code = 2665182774) message] The system which generated this result transmitted reference range : 0.0 - 10.0 /100 WBCs. The refer ence range was not u sed to interpret th is result as normal/abnormal . NRBC x10^3 (test code <0.01 See_Comment [Auto mated = 4637661615) message] The s ysteMeez which generated this result transmitted reference range : 10*3/?L. The reference range was not used to interpret this result as normal/abnormal . GRAN MAT (NEUT) % 64.3 % (test code = 770-8) IMM GRAN % (test code 0.30 % = 2956021614) LYMPH % (test code = 21.7 % 736-9) MONO % (test code = 10.0 % 5905-5) EOS % (test code = 3.1 % 713-8) BASO % (test code = 0.6 % 706-2) GRAN MAT x10^3(ANC) 4.35 10*3/uL 1.99-6.95 (test code = 5994899326) IMM GRAN x10^3 (test <0.03 0.00-0.06 code = 4842565932) LYMPH x10^3 (test code 1.47 10*3/uL 1.09-3.23 = 731-0) MONO x10^3 (test code 0.68 10*3/uL 0.36-1.02 = 742-7) EOS x10^3 (test code = 0.21 10*3/uL 0.06-0.53 711-2) BASO x10^3 (test code 0.04 10*3/uL 0.01-0.09 = 704-7) Lab Interpretation Abnormal (test code = 07197-6) [facility]kinWENDY [id number] 11:09:53 Test Item Value Reference Interpretation Comments Range TROPONIN I (test 0.101 ng/mL See_Comment H [Automated code = 6038168432) message] The system which generated this result [...] biotin. Lab Interpretation Abnormal (test code = 43691-0) [facility] Metabolic Panel (NA, K, CL, CO2, GLUCOSE, BUN, CREATININE, CA)2021-10-31 10:59:31 Test Item Value Reference Range Interpretation Comments NA (test code = 139 mmol/L 135-145 6011807907) K (test code = 4.1 mmol/L 3.5-5.0 9697296967) CL (test code = 103 mmol/L 98-108 0384125810) CO2 TOTAL (test code = 28 mmol/L 23-31 9618386148) AGAP (test code = 2-16 6990580199) BUN (test code = 43 mg/dL 7-23 H 5538863624) GLUCOSE (test code = 165 mg/dL 70-110 H 9264471231) CREATININE (test code = 1.68 mg/dL 0.60-1.25 H 9903697856) CALCIUM (test code = 9.6 mg/dL 8.6-10.6 3943237285) eGFR (test code = mL/min/1.73m2 7101731433) ALYSSA (test code = ALYSSA) Association of [...] tests). Lab Interpretation Abnormal (test code = 74078-0) [facility]cosylated Hemoglobin (A1C)2021-10-31 09:13:40 Test Item Value Reference Range Interpretation Comments HGB A1C (test code = 6.8 % 4.0-5.7 H 4548-4) ALYSSA (test code = ALYSSA) Reference RangesNormal: <5.7%Prediabetes: 5.7 - 6.4%Diabetes: > 6.5% Lab Interpretation (test Abnormal code = 60475-3) [facility] [id number] 06:48:18 Test Item Value Reference Interpretation Comments Range TROPONIN I (test 0.082 ng/mL See_Comment H [Automated code = 5513507274) message] The system which generated this result [...] biotin. Lab Interpretation Abnormal (test code = 78176-1) [facility] [id number] 02:09:48 Test Item Value Reference Interpretation Comments Range TROPONIN I (test 0.067 ng/mL See_Comment H [Automated code = 7584025508) message] The system which generated this result [...] biotin. Lab Interpretation Abnormal (test code = 83594-2) [facility] [id number] 02:06:31 Test Item Value Reference Range Interpretation Comments NT-proBNP (test code 318 pg/mL See_Comment [Autom ated = 4836064371) message] The system which generated this result transmitted reference range : <=450. The reference range was not used to interpret this result as normal/abnormal . ALYSSA (test code = ALYSSA) Biotin has been reported to cause a negative bias, interpret results relative to patient's use of biotin. Lab Interpretation Normal (test code = 19363-5) [facility]COMP. METABOLIC PANEL (12803)2021-10-31 01:58:28 Test Item Value Reference Range Interpretation Comments NA (test code = 137 mmol/L 135-145 6063057567) K (test code = 4.1 mmol/L 3.5-5.0 4301123440) CL (test code = 101 mmol/L 98-108 8564767288) CO2 TOTAL (test code = 26 mmol/L 23-31 0730438118) AGAP (test code = 2-16 5186288168) BUN (test code = 46 mg/dL 7-23 H 9670227319) GLUCOSE (test code = 213 mg/dL 70-110 H 1621823080) CREATININE (test code = 1.96 mg/dL 0.60-1.25 H 6714261883) TOTAL BILI (test code = 0.9 mg/dL 0.1-1.5 0886440185) CALCIUM (test code = 9.7 mg/dL 8.6-10.6 2449690031) T PROTEIN (test code = 7.0 g/dL 6.3-8.2 3056996125) ALBUMIN (test code = 4.3 g/dL 3.5-5.0 1243906281) ALK PHOS (test code = 58 U/L 34-122 5595770460) ALTv (test code = 20 U/L 5-50 1742-6) AST(SGOT) (test code = 27 U/L 13-40 3225453627) eGFR (test code = mL/min/1.73m2 7818073571) ALYSSA (test code = ALYSSA) Association of [...] tests). Lab Interpretation Abnormal (test code = 94476-5) [facility]kinLIPASE, [id number] 01:57:48 Test Item Value Reference Range Interpretation Comments LIPASE (test code = 8215360774) 330 U/L 0-220 H Lab Interpretation (test code = Abnormal 94879-9) [facility] LufkinaPTT2021-12-16 01:55:04 Test Item Value Reference Range Interpretation Comments APTT Patient (test See_Comment [Automat ed code = 3173-2) message] The system which generated this result transmitted reference range : 23 - 38 Seconds . The reference range was not used to interpr et this result as normal/abnormal . ALYSSA (test code = ALYSSA) The [facility] patient population mean normal value for aPTT is 30 seconds. Lab Interpretation Normal (test code = 07105-1) [facility]kinPROTHROMBIN TIME / [id number] 01:53:08 Test Item Value Reference Range Interpretation [...] tions. Lab Interpretation (test Normal code = 68869-0) [facility]kinCBC WITH [id number] 01:45:44 Test Item Value Reference Range Interpretation Comments WBC (test code = See_Comment [Automated 4890-2) message] The sy stem which generated this result transmitted reference range : 4.20 - 10.70 10*3/?L. The reference range was not used to interpret this result as normal/abnormal . RBC (test code = See_Comment L [Automated 399-8) message] The sy stem which generated this [...] RDW-SD (test code = 39.1 fL 38.5-51.6 19192-9) RDW-CV (test code = 11.6 % 12.1-15.4 L 788-0) PLT (test code = See_Comment [Automated 777-3) message] The sy stem which generated this result transmitted reference range : 150 - 328 10*3/ ?L. The reference r corey was not used to interpret this result as normal/abnormal . MPV (test code = 10.4 fL 9.8-13.0 62526-2) NRBC/100 WBC (test See_Comment [Automat ed code = 4906322000) message] The system which generated this result transmitted reference range : 0.0 - 10.0 /100 WBCs. The refer ence range was not u sed to interpret th is result as normal/abnormal . NRBC x10^3 (test code <0.01 See_Comment [Auto mated = 2163955257) message] The s ystem which generated this result transmitted reference range : 10*3/?L. The reference range was not used to interpret this result as normal/abnormal . GRAN MAT (NEUT) % 62.1 % (test code = 770-8) IMM GRAN % (test code 0.30 % = 8703806820) LYMPH % (test code = 23.4 % 736-9) MONO % (test code = 10.8 % 5905-5) EOS % (test code = 2.9 % 713-8) BASO % (test code = 0.5 % 706-2) GRAN MAT x10^3(ANC) 4.14 10*3/uL 1.99-6.95 (test code = 0735548867) IMM GRAN x10^3 (test <0.03 0.00-0.06 code = 3134550006) LYMPH x10^3 (test code 1.56 10*3/uL 1.09-3.23 = 731-0) MONO x10^3 (test code 0.72 10*3/uL 0.36-1.02 = 742-7) EOS x10^3 (test code = 0.19 10*3/uL 0.06-0.53 711-2) BASO x10^3 (test code 0.03 10*3/uL 0.01-0.09 = 704-7) Lab Interpretation Abnormal (test code = 42295-5) [facility]kinURINALYSIS2021-06-10 21:15:48 Test Item Value Reference Range Interpretation Comments APPEARANCE (test code = Clear Clear 7995447506) COLOR (test code = Yellow Yellow 4198772747) PH (test code = 4.8-8.0 5342660705) SP GRAVITY (test code = 1.003-1.030 5438279849) GLU U QUAL (test code = 50 mg/dL Normal A 6543996153) BLOOD (test code = Negative Negative INTERFERE NCE FROM 9970734273) ASCORBIC ACID M AY CAUSE FALSE NEG ATIVE RESULT KETONES (test code = Negative Negative 4319402647) PROTEIN (test code = Negative Negative 2887-8) UROBILIN (test code = Normal Normal 4737873500) BILIRUBIN (test code = Negative Negative 5724045121) NITRITE (test code = Negative Negative 7478510438) LEUK JESS (test code = Negative Negative 3183771071) RBC/HPF (test code = See_Comment [Autom ated message] 2769773307) The system [employer] generated this result transmitted ref erence range: 0 - 3 HP F. The reference range was not used to int erpret this result as normal/abnormal . WBC/HPF (test code = See_Comment [Autom ated message] 6891836282) The system [employer] generated this result transmitted ref erence range: 0 - 5 HP F. The reference range was not used to int erpret this result as normal/abnormal . BACTERIA (test code = Negative Negative 4770937078) SQ EPITH (test code = <1 See_Comment [Auto mated message] 3055195320) The system [employer] generated this result transmitted ref erence range: <=2 HPF. The reference range was not used to int erpret this result as normal/abnormal . HYAL CAST (test code = See_Comment [Aut omated message] 8719037600) The system [employer] generated this result transmitted ref erence range: <=2 LPF. The reference range was not used to int erpret this result as normal/abnormal . Lab Interpretation (test Abnormal code = 97933-2) [facility] [id number] 20:30:53 Impression: Postoperative changes. Degenerative changes. No acute bony abnormality identified. End of Report. RL: 3901 Ordering Physician: NALLELY ZAHO. Procedure: XR LUMBAR SPINE 2 VW Comparison: [...] abnormality identified.End of Report.RL: [facility]01 [facility] VW [id number] 20:24:52Impression: Postoperative changes. Degenerative changes. No acute [...] clinicalconcern MRI is available.End of Report.RL: 3901 [facility] (NA, K, CL, CO2, GLUCOSE, BUN, CREATININE, CA)2020-05-24 14:15:00 Test Item Value Reference Range Interpretation Comments NA (test code = 139 mmol/L 135-145 7234335246) K (test code = 4.1 mmol/L 3.5-5 7087202569) CL (test code = 104 mmol/L 98-108 0462457721) CO2 TOTAL (test code = 26 mmol/L 23-31 9925308656) AGAP (test code = 2-16 1913767359) BUN (test code = 22 mg/dL 7- 6876379590) GLUCOSE (test code = 203 mg/dL 70-110 H 7558772470) CREATININE (test code = 1.40 mg/dL 0.6-1.25 H 0178603906) CALCIUM (test code = 9.1 mg/dL 8.6-10.6 1660176813) eGFR Calculation mL/min/1.73m2 (Non-) (test code = 4898544492) eGFR Calculation mL/min/1.73m2 () (test code = 4717594268) ALYSSA (test code = ALYSSA) Association of [...] tests). Lab Interpretation Abnormal (test code = 83927-0) [facility] (ALB, T.PRO, BILI T, BU/BC, ALT, AST, ALK PHOS)2020-05-24 13:54:00 Test Item Value Reference Range Interpretation Comments TOTAL BILI (test code = 7194780783) 0.9 mg/dL 0.1-1.1 BILI UNCON (test code = 7610771407) 1.0 mg/dL 0.1-1.1 BILI CONJ (test code = 5478312910) 0.0 mg/dL 0-0.3 T PROTEIN (test code = 2831815538) 7.0 g/dL 6.3-8.2 ALBUMIN (test code = 8174231001) 4.2 g/dL 3.5-5 ALK PHOS (test code = 1375402909) 49 U/L 34-122 ALTv (test code = 1742-6) 17 U/L 5-50 AST(SGOT) (test code = 3402458948) 25 U/L 13-40 Lab Interpretation (test code = Normal 66589-1) [facility]PTT2020-07-09 13:32:00 Test Item Value Reference Range Interpretation Comments APTT Patient (test See_Comment [Automat ed code = 3173-2) message] The system which generated this result transmitted reference range : 23 - 38 Seconds . The reference range was not used to interpr et this result as normal/abnormal . ALYSSA (test code = ALYSSA) The [facility] patient population mean normal value for aPTT is 30 seconds. Lab Interpretation Normal (test code = 69878-5) [facility]thrombin Time (PT) / [id number] 13:30:00 Test Item Value Reference Range Interpretation [...] tions. Lab Interpretation (test Normal code = 40554-8) [facility]CBC WITH [id number] 13:27:00 Test Item Value Reference Range Interpretation [...] RDW-SD (test code = 42.6 fL 38.5-51.6 98805-3) RDW-CV (test code = 12.3 % 12.1-15.4 788-0) PLT (test code = See_Comment [Automated 777-3) message] The sy stem which generated this result transmitted reference range : 150 - 328 10*3/ ?L. The reference r corey was not used to interpret this result as normal/abnormal . MPV (test code = 9.9 fL 9.8-13 03521-0) NRBC/100 WBC (test See_Comment [Automat ed code = 3942448738) message] The system which generated this result transmitted reference range : 0.0 - 10.0 /100 WBCs. The refer ence range was not u sed to interpret th is result as normal/abnormal . NRBC x10^3 (test code <0.01 See_Comment [Auto mated = 2951537997) message] The s ystem which generated this result transmitted reference range : 10*3/?L. The reference range was not used to interpret this result as normal/abnormal . GRAN MAT (NEUT) % 55.1 % (test code = 770-8) IMM GRAN % (test code 0.20 % = 8170424998) LYMPH % (test code = 28.8 % 736-9) MONO % (test code = 11.3 % 5905-5) EOS % (test code = 3.5 % 713-8) BASO % (test code = 1.1 % 706-2) GRAN MAT x10^3(ANC) 3.11 10*3/uL 1.99-6.95 (test code = 6752122279) IMM GRAN x10^3 (test <0.03 0-0.06 code = 2507002398) LYMPH x10^3 (test code 1.63 10*3/uL 1.09-3.23 = 731-0) MONO x10^3 (test code 0.64 10*3/uL 0.36-1.02 = 742-7) EOS x10^3 (test code = 0.20 10*3/uL 0.06-0.53 711-2) BASO x10^3 (test code 0.06 10*3/uL 0.01-0.09 = 704-7) Lab Interpretation Abnormal (test code = 41898-3) [facility]LE 3+ VW [id number] 13:25:58HISTORY: ?Pain. FINDINGS: AP, lateral, oblique views [...] No acute fracture or dislocation in left ankle.[facility] GLUCOSE (AUTOMATED)2020-03-23 22:34:00 Test Item Value Reference Range Interpretation Comments POCT GLU (test code = 4112390598) 173 mg/dL 70-110 H Lab Interpretation (test code = Abnormal 13927-2) [facility] GLUCOSE (AUTOMATED)2020-03-23 22:34:00 Test Item Value Reference Range Interpretation Comments POCT GLU (test code = 8600157601) 173 mg/dL 70-110 H Lab Interpretation (test code = Abnormal 88407-8) [facility] GLUCOSE (AUTOMATED)2020-03-23 18:12:00 Test Item Value Reference Range Interpretation Comments POCT GLU (test code = 165 mg/dL 70-110 H Notifi ed Provider [id number]) Lab Interpretation (test Abnormal code = 61505-6) [facility] GLUCOSE (AUTOMATED)2020-03-23 18:12:00 Test Item Value Reference Range Interpretation Comments POCT GLU (test code = 165 mg/dL 70-110 H Notifi ed Provider [id number]) Lab Interpretation (test Abnormal code = 92420-0) [facility] GLUCOSE (AUTOMATED)2020-03-23 15:04:00 Test Item Value Reference Range Interpretation Comments POCT GLU (test code = 114 mg/dL 70-110 H Notifi ed Provider [id number]) Lab Interpretation (test Abnormal code = 15935-4) [facility] GLUCOSE (AUTOMATED)2020-03-23 15:04:00 Test Item Value Reference Range Interpretation Comments POCT GLU (test code = 114 mg/dL 70-110 H Notifi ed Provider [id number]) Lab Interpretation (test Abnormal code = 20798-3) [facility]kinFERRITIN [id number] 13:23:00 Test Item Value Reference Range Interpretation Comments FERRITIN (test code = 139.0 ng/mL 18464 2500731426) ALYSSA (test code = ALYSSA) Biotin has been reported to cause a negative bias, interpret results relative to patient's use of biotin. Lab Interpretation (test Normal code = 54589-5) [facility]kinFERRITIN [id number] 13:23:00 Test Item Value Reference Range Interpretation Comments FERRITIN (test code = 139.0 ng/mL 18-464 7549872618) ALYSSA (test code = ALYSSA) Biotin has been reported to cause a negative bias, interpret results relative to patient's use of biotin. Lab Interpretation (test Normal code = 06382-9) [facility]kinIRON [id number] 12:53:00 Test Item Value Reference Range Interpretation Comments IRON (test code = 7530560298) 87 ug/dL 50-160 TIBC (test code = 8616935100) 385 ug/dL 250-410 % FE SAT (test code = 6014318902) 23 % 20-50 Lab Interpretation (test code = Normal 30671-0) [facility] [id number] 12:53:00 Test Item Value Reference Range Interpretation Comments IRON (test code = 9558762233) 87 ug/dL 50-160 TIBC (test code = 3976267993) 385 ug/dL 250-410 % FE SAT (test code = 7902540404) 23 % 20-50 Lab Interpretation (test code = Normal 90279-9) [place] [id number] 12:07:00 Test Item Value Reference Range Interpretation Comments APTT Patient (test code See_Comment [Au tomated message] = 3173-2) The system [employer] generated this result transmitted ref erence range: 26 - 36 Seconds. The reference range was not used to int erpret this result as normal/abnormal . Lab Interpretation (test Abnormal code = 55877-1) [facility] 12:07:00 Test Item Value Reference Range Interpretation Comments APTT Patient (test code See_Comment [Au tomated message] = 3173-2) The system [employer] generated this result transmitted ref erence range: 26 - 36 Seconds. The reference range was not used to int erpret this result as normal/abnormal . Lab Interpretation (test Abnormal code = 56318-3) [facility] [id number] 11:57:00 Test Item Value Reference Range Interpretation Comments TROPONIN I (test 0.046 ng/mL See_Comment H [Automated code = 6439239112) message] The system which generated this result [...] ? Lab Interpretation Abnormal (test code = 63165-8) [facility]kinKARINSANTOS [id number] 11:57:00 Test Item Value Reference Range Interpretation Comments TROPONIN I (test 0.046 ng/mL See_Comment H [Automated code = 9275622258) message] The system which generated this result [...] ? Lab Interpretation Abnormal (test code = 79085-2) [facility] (NA, K, CL, CO2, GLUCOSE, BUN, CREATININE, CA)2020-03-23 11:52:00 Test Item Value Reference Range Interpretation Comments NA (test code = 137 mmol/L 135-145 6713488341) K (test code = 4.1 mmol/L 3.5-5 2664736973) CL (test code = 102 mmol/L 98-108 9861255930) CO2 TOTAL (test code = 26 mmol/L 23-31 2969281976) AGAP (test code = 2-16 3841627454) BUN (test code = 18 mg/dL 7-23 6042720310) GLUCOSE (test code = 119 mg/dL 70-110 H 4054262028) CREATININE (test code = 1.14 mg/dL 0.6-1.25 1415237718) CALCIUM (test code = 9.1 mg/dL 8.6-10.6 6361276068) eGFR Calculation mL/min/1.73m2 (Non-) (test code = 2938382683) eGFR Calculation mL/min/1.73m2 () (test code = 3421336906) ALYSSA (test code = ALYSSA) Association of [...] tests). Lab Interpretation Abnormal (test code = 60347-9) [facility]IUM2020-05-08 11:52:00 Test Item Value Reference Range Interpretation Comments MAGNESIUM (test code = 8674244555) 2.2 mg/dL 1.7-2.4 Lab Interpretation (test code = Normal 99522-3) [facility] (NA, K, CL, CO2, GLUCOSE, BUN, CREATININE, CA)2020-03-23 11:52:00 Test Item Value Reference Range Interpretation Comments NA (test code = 137 mmol/L 135-145 2088872537) K (test code = 4.1 mmol/L 3.5-5 3665296941) CL (test code = 102 mmol/L 98-108 3764910245) CO2 TOTAL (test code = 26 mmol/L 23-31 5304890694) AGAP (test code = 2-16 8449282141) BUN (test code = 18 mg/dL 7-23 2738215946) GLUCOSE (test code = 119 mg/dL 70-110 H 5546933498) CREATININE (test code = 1.14 mg/dL 0.6-1.25 5525149141) CALCIUM (test code = 9.1 mg/dL 8.6-10.6 9429466072) eGFR Calculation mL/min/1.73m2 (Non-) (test code = 0988895346) eGFR Calculation mL/min/1.73m2 () (test code = 0204461919) ALYSSA (test code = ALYSSA) Association of [...] tests). Lab Interpretation Abnormal (test code = 96645-2) [facility]2020-05-08 11:52:00 Test Item Value Reference Range Interpretation Comments MAGNESIUM (test code = 7988905069) 2.2 mg/dL 1.7-2.4 Lab Interpretation (test code = Normal 42560-5) [facility]kinProthrombin Time (PT) / [id number] 11:36:00 Test Item Value Reference Range Interpretation Comments PROTIME PATIENT (test See_Comment [Auto mated message] code = 5964-2) The system [employer] generated this result transmitted ref erence range: 10.1 - 1 2.6 Seconds. The re ference range was not u sed to interpret this result as normal/abnor mal. INR (test code = 6301-6) Nor mal INR <1.1; Warfarin Therap eutic range 2.0 to 3. 0 or 2.5 to 3.5, dep ending upon the indica tions. Lab Interpretation (test Normal code = 26151-2) [facility]th[facility] Time (PT) / [id number] 11:36:00 Test Item Value Reference Range Interpretation [...] tions. Lab Interpretation (test Normal code = 59518-2) [facility] [id number] 06:38:00 Test Item Value Reference Range Interpretation Comments TROPONIN I (test 0.045 ng/mL See_Comment H [Automated code = 1997367415) message] The system which generated this result [...] ? Lab Interpretation Abnormal (test code = 80835-1) [facility] [id number] 06:38:00 Test Item Value Reference Range Interpretation Comments TROPONIN I (test 0.045 ng/mL See_Comment H [Automated code = 8027991979) message] The system which generated this result [...] ? Lab Interpretation Abnormal (test code = 62019-5) [facility] (NA, K, CL, CO2, GLUCOSE, BUN, CREATININE, CA)2020-03-23 06:29:00 Test Item Value Reference Range Interpretation Comments NA (test code = 137 mmol/L 135-145 8811844171) K (test code = 3.6 mmol/L 3.5-5 1762058954) CL (test code = 101 mmol/L 98-108 1046165585) CO2 TOTAL (test code = 27 mmol/L 23-31 6252090606) AGAP (test code = 2-16 7665099782) BUN (test code = 19 mg/dL 7-23 2191462708) GLUCOSE (test code = 153 mg/dL 70-110 H 3255845399) CREATININE (test code = 1.22 mg/dL 0.6-1.25 5565942622) CALCIUM (test code = 8.9 mg/dL 8.6-10.6 1130543755) eGFR Calculation mL/min/1.73m2 (Non-) (test code = 3193926311) eGFR Calculation mL/min/1.73m2 () (test code = 5558693245) ALYSSA (test code = ALYSSA) Association of [...] tests). Lab Interpretation Abnormal (test code = 54628-7) [facility]2020-05-08 06:29:00 Test Item Value Reference Range Interpretation Comments MAGNESIUM (test code = 5456109871) 1.7 mg/dL 1.7-2.4 Lab Interpretation (test code = Normal 84323-9) [facility]ufkinLIPID PANEL (63908)(TOTAL CHOLESTEROL, TRIGLYCERIDES, HDL)2020-03-23 06:29:00 Test Item Value Reference Range Interpretation Comments CHOL (test code = 106 mg/dL 120-200 L 4792166931) HDL (test code = 46 mg/dL >40 1456597750) HDLC RATIO (test code = See_Comment [Au tomated message] 9078562147) The system [employer] generated this result transmit diamante reference range : <=5.0. The refe rence range was not u sed to interpret th is result as normal/abnormal . TRIG (test code = 74 mg/dL 30-170 9789299494) LDL CHOL (test code = 45 mg/dL See_Comment [Auto mated message] 57958-5) The system [employer] generated this result transmit diamante reference range : <=160. The refe rence range was not u sed to interpret th is result as normal/abnormal . VLDL (test code = 15 mg/dL 5-60 2000211306) Lab Interpretation (test Abnormal code = 48243-6) [facility] METABOLIC PANEL (NA, K, CL, CO2, GLUCOSE, BUN, CREATININE, CA)2020-03-23 06:29:00 Test Item Value Reference Range Interpretation Comments NA (test code = 137 mmol/L 135-145 0092111681) K (test code = 3.6 mmol/L 3.5-5 5526444911) CL (test code = 101 mmol/L 98-108 2139336005) CO2 TOTAL (test code = 27 mmol/L 23-31 8758841399) AGAP (test code = 2-16 1305220464) BUN (test code = 19 mg/dL 7-23 2660723424) GLUCOSE (test code = 153 mg/dL 70-110 H 3496647775) CREATININE (test code = 1.22 mg/dL 0.6-1.25 1105604826) CALCIUM (test code = 8.9 mg/dL 8.6-10.6 7340733390) eGFR Calculation mL/min/1.73m2 (Non-) (test code = 0821434900) eGFR Calculation mL/min/1.73m2 () (test code = 1301270103) ALYSSA (test code = ALYSSA) Association of [...] tests). Lab Interpretation Abnormal (test code = 81822-1) [facility]2020-05-08 06:29:00 Test Item Value Reference Range Interpretation Comments MAGNESIUM (test code = 0316150095) 1.7 mg/dL 1.7-2.4 Lab Interpretation (test code = Normal 09773-3) [facility]kinLIPID PANEL (47022)(TOTAL CHOLESTEROL, TRIGLYCERIDES, HDL)2020-03-23 06:29:00 Test Item Value Reference Range Interpretation Comments CHOL (test code = 106 mg/dL 120-200 L 2187401399) HDL (test code = 46 mg/dL >40 0128171379) HDLC RATIO (test code = See_Comment [Au tomated message] 9575584849) The system [employer] generated this result transmit diamante reference range : <=5.0. The refe rence range was not u sed to interpret th is result as normal/abnormal . TRIG (test code = 74 mg/dL 30-170 8718146020) LDL CHOL (test code = 45 mg/dL See_Comment [Auto mated message] 78775-6) The system [employer] generated this result transmit daimante reference range : <=160. The refe rence range was not u sed to interpret th is result as normal/abnormal . VLDL (test code = 15 mg/dL 5-60 4519279729) Lab Interpretation (test Abnormal code = 93924-2) [facility]inaPTT2020-05-08 03:18:00 Test Item Value Reference Range Interpretation Comments APTT Patient (test code = See_Comment [ Automated message] 3173-2) The system [employer] generated this result transmitted ref erence range: 26 - 36 Seconds. The re ference range was not u sed to interpret this result as normal/abnor mal. Lab Interpretation (test Normal code = 77877-1) [facility]T2020-[facility]-08 03:18:00 Test Item Value Reference Range Interpretation Comments APTT Patient (test code = See_Comment [ Automated message] 3173-2) The system [employer] generated this result transmitted ref erence range: 26 - 36 Seconds. The re ference range was not u sed to interpret this result as normal/abnor mal. Lab Interpretation (test Normal code = 86473-3) [facility]kinPROTHROMBIN TIME / [id number] 03:07:00 Test Item Value Reference Range Interpretation Comments PROTIME PATIENT (test See_Comment [Auto mated message] code = 5964-2) The system [employer] generated this result transmitted ref erence range: 10.1 - 1 2.6 Seconds. The re ference range was not u sed to interpret this result as normal/abnor mal. INR (test code = 6301-6) Nor mal INR <1.1; Warfarin Therap eutic range 2.0 to 3. 0 or 2.5 to 3.5, dep ending upon the indica tions. Lab Interpretation (test Normal code = 01860-0) [facility]kinPROTHROMBIN TIME / [id number] 03:07:00 Test Item Value Reference Range Interpretation Comments PROTIME PATIENT (test See_Comment [Auto mated message] code = 5964-2) The system [employer] generated this result transmitted ref erence range: 10.1 - 1 2.6 Seconds. The re ference range was not u sed to interpret this result as normal/abnor mal. INR (test code = 6301-6) Nor mal INR <1.1; Warfarin Therap eutic range 2.0 to 3. 0 or 2.5 to 3.5, dep ending upon the indica tions. Lab Interpretation (test Normal code = 63808-5) [facility] CHEST 2 [id number] 02:23:32 No acute cardiopulmonary process. Preliminary Report [...] with the abovereport.[facility] 2 [id number] 02:23:32 No acute cardiopulmonary process. Preliminary Report [...] with the abovereport.[facility]ON[facility]IR[facility] COVID-19 [id number] 01:23:00 Test Item Value Reference Range Interpretation Comments SARS-CoV-2 (test code = Not Detected Not Detected 97870-2) ALYSSA (test code = ALYSSA) ID NOW COVID-19 Assay is an isothermal nucleic acid amplification test intended for the qualitative detection of nucleic acid from SARS-CoV-2 viral RNA in nasopharyngeal ([employer]) specimens. It is used under Emergency Use [...] indicated. Lab Interpretation Normal (test code = 88167-9) [facility] COVID-19 [id number] 01:23:00 Test Item Value Reference Range Interpretation Comments SARS-CoV-2 (test code = Not Detected Not Detected 97615-0) ALYSSA (test code = ALYSSA) ID NOW COVID-19 Assay is an isothermal nucleic acid amplification test intended for the qualitative detection of nucleic acid from SARS-CoV-2 viral RNA in nasopharyngeal ([employer]) specimens. It is used under Emergency Use [...] indicated. Lab Interpretation Normal (test code = 53810-8) [facility]kinN-TERMINAL [id number] 00:12:00 Test Item Value Reference Range Interpretation Comments NT-proBNP (test code 585 pg/mL See_Comment H [Autom ated = 6490224372) message] The system which generated this result transmitted reference range : <=450. The reference range was not used to interpret this result as normal/abnormal . ALYSSA (test code = ALYSSA) Biotin has been reported to cause a negative bias, interpret results relative to patient's use of biotin. Lab Interpretation Abnormal (test code = 63774-9) [facility]kinTR[facility]IN [id number] 00:12:00 Test Item Value Reference Range Interpretation Comments TROPONIN I (test 0.030 ng/mL See_Comment [Automated code = 1168009338) message] The system which generated this result [...] ? Lab Interpretation Normal (test code = 70102-7) [facility]kinN-TERMINAL [id number] 00:12:00 Test Item Value Reference Range Interpretation Comments NT-proBNP (test code 585 pg/mL See_Comment H [Autom ated = 2187887803) message] The system which generated this result transmitted reference range : <=450. The reference range was not used to interpret this result as normal/abnormal . ALYSSA (test code = ALYSSA) Biotin has been reported to cause a negative bias, interpret results relative to patient's use of biotin. Lab Interpretation Abnormal (test code = 12707-4) [facility]kinTROP[facility]IN [id number] 00:12:00 Test Item Value Reference Range Interpretation Comments TROPONIN I (test 0.030 ng/mL See_Comment [Automated code = 6286132700) message] The system which generated this result [...] ? Lab Interpretation Normal (test code = 84369-9) [facility]COMP. METABOLIC PANEL (30092)2020-03-23 00:03:00 Test Item Value Reference Range Interpretation Comments NA (test code = 138 mmol/L 135-145 2675004467) K (test code = 4.1 mmol/L 3.5-5 2258608629) CL (test code = 103 mmol/L 98-108 6346521547) CO2 TOTAL (test code = 26 mmol/L 23-31 5627009925) AGAP (test code = 2-16 0682290793) BUN (test code = 18 mg/dL 7-23 9427016290) GLUCOSE (test code = 157 mg/dL 70-110 H 0601249430) CREATININE (test code = 1.19 mg/dL 0.6-1.25 1538281132) TOTAL BILI (test code = 1.1 mg/dL 0.1-1.9 9052548396) CALCIUM (test code = 9.2 mg/dL 8.6-10.6 4281789999) T PROTEIN (test code = 6.8 g/dL 6.3-8.2 2370641457) ALBUMIN (test code = 4.0 g/dL 3.5-5 9897760201) ALK PHOS (test code = 51 U/L 34-122 7187643820) ALTv (test code = 16 U/L 5-50 1742-6) AST(SGOT) (test code = 23 U/L 13-40 0353171244) eGFR Calculation mL/min/1.73m2 (Non-) (test code = 3843599175) eGFR Calculation mL/min/1.73m2 () (test code = 1752243783) ALYSSA (test code = ALYSSA) Association of [...] tests). Lab Interpretation Abnormal (test code = 09503-6) [facility]. METABOLIC PANEL (20751)2020-03-23 00:03:00 Test Item Value Reference Range Interpretation Comments NA (test code = 138 mmol/L 135-145 8919066817) K (test code = 4.1 mmol/L 3.5-5 3533001623) CL (test code = 103 mmol/L 98-108 3629771468) CO2 TOTAL (test code = 26 mmol/L 23-31 6444931928) AGAP (test code = 2-16 3575878431) BUN (test code = 18 mg/dL 7-23 5488797076) GLUCOSE (test code = 157 mg/dL 70-110 H 5055143441) CREATININE (test code = 1.19 mg/dL 0.6-1.25 7979586785) TOTAL BILI (test code = 1.1 mg/dL 0.1-1.4 3548142755) CALCIUM (test code = 9.2 mg/dL 8.6-10.6 3376460628) T PROTEIN (test code = 6.8 g/dL 6.3-8.2 7286952429) ALBUMIN (test code = 4.0 g/dL 3.5-5 2442702244) ALK PHOS (test code = 51 U/L 34-122 9428769488) ALTv (test code = 16 U/L 5-50 1742-6) AST(SGOT) (test code = 23 U/L 13-40 5075199037) eGFR Calculation mL/min/1.73m2 (Non-) (test code = 7505785116) eGFR Calculation mL/min/1.73m2 () (test code = 5806737890) ALYSSA (test code = ALYSSA) Association of [...] tests). Lab Interpretation Abnormal (test code = 67676-1) [place] [facility] [facility] WITH [id number] 23:57:00 Test Item Value Reference Range Interpretation Comments WBC (test code = See_Comment [Automated 7515-2) message] The sy stem which generated this result transmitted reference range : 4.20 - 10.70 10*3/?L. The reference range was not used to interpret this result as normal/abnormal . RBC (test code = See_Comment L [Automated 392-8) message] The sy stem which generated this [...] RDW-SD (test code = 49.6 fL 38.5-51.6 86843-8) RDW-CV (test code = 14.6 % 12.1-15.4 788-0) PLT (test code = See_Comment L [Automated 777-3) message] The sy stem which generated this result transmitted reference range : 150 - 328 10*3/ ?L. The reference r corey was not used to interpret this result as normal/abnormal . MPV (test code = 9.9 fL 9.8-13 20746-1) NRBC/100 WBC (test See_Comment [Automat ed code = 4481609966) message] The system which generated this result transmitted reference range : 0.0 - 10.0 /100 WBCs. The refer ence range was not u sed to interpret th is result as normal/abnormal . NRBC x10^3 (test code <0.01 See_Comment [Auto mated = 1232153304) message] The s ystem which generated this result transmitted reference range : 10*3/?L. The reference range was not used to interpret this result as normal/abnormal . GRAN MAT (NEUT) % 55.3 % (test code = 770-8) IMM GRAN % (test code 0.20 % = 6703978149) LYMPH % (test code = 28.3 % 736-9) MONO % (test code = 12.6 % 5905-5) EOS % (test code = 3.1 % 713-8) BASO % (test code = 0.5 % 706-2) GRAN MAT x10^3(ANC) 3.20 10*3/uL 1.99-6.95 (test code = 1545186814) IMM GRAN x10^3 (test <0.03 0-0.06 code = 9988115230) LYMPH x10^3 (test code 1.64 10*3/uL 1.09-3.23 = 731-0) MONO x10^3 (test code 0.73 10*3/uL 0.36-1.02 = 742-7) EOS x10^3 (test code = 0.18 10*3/uL 0.06-0.53 711-2) BASO x10^3 (test code 0.03 10*3/uL 0.01-0.09 = 704-7) Lab Interpretation Abnormal (test code = 12695-1) [facility] WITH [id number] 23:57:00 Test Item Value Reference Range Interpretation [...] RDW-SD (test code = 49.6 fL 38.5-51.6 53247-7) RDW-CV (test code = 14.6 % 12.1-15.4 788-0) PLT (test code = See_Comment L [Automated 777-3) message] The sy stem which generated this result transmitted reference range : 150 - 328 10*3/ ?L. The reference r corey was not used to interpret this result as normal/abnormal . MPV (test code = 9.9 fL 9.8-13 87497-4) NRBC/100 WBC (test See_Comment [Automat ed code = 5270032869) message] The system which generated this result transmitted reference range : 0.0 - 10.0 /100 WBCs. The refer ence range was not u sed to interpret th is result as normal/abnormal . NRBC x10^3 (test code <0.01 See_Comment [Auto mated = 9283447947) message] The s ystem which generated this result transmitted reference range : 10*3/?L. The reference range was not used to interpret this result as normal/abnormal . GRAN MAT (NEUT) % 55.3 % (test code = 770-8) IMM GRAN % (test code 0.20 % = 8729470958) LYMPH % (test code = 28.3 % 736-9) MONO % (test code = 12.6 % 5905-5) EOS % (test code = 3.1 % 713-8) BASO % (test code = 0.5 % 706-2) GRAN MAT x10^3(ANC) 3.20 10*3/uL 1.99-6.95 (test code = 7905881820) IMM GRAN x10^3 (test <0.03 0-0.06 code = 7848223053) LYMPH x10^3 (test code 1.64 10*3/uL 1.09-3.23 = 731-0) MONO x10^3 (test code 0.73 10*3/uL 0.36-1.02 = 742-7) EOS x10^3 (test code = 0.18 10*3/uL 0.06-0.53 711-2) BASO x10^3 (test code 0.03 10*3/uL 0.01-0.09 = 704-7) Lab Interpretation Abnormal (test code = 43419-6) [facility]19 [id number] 21:48:00 Test Item Value Reference Range Interpretation Comments SARS-CoV-2 (test code = Not Detected Not Detected 67328-5) ALYSSA (test code = ALYSSA) ID NOW COVID-19 Assay is an isothermal nucleic acid amplification test intended for the qualitative detection of nucleic acid from SARS-CoV-2 viral RNA in nasopharyngeal ([employer]) specimens. It is used under Emergency Use [...] indicated. Lab Interpretation Normal (test code = 36730-9) [facility]rop[facility] [id number] 21:44:00 Test Item Value Reference Range Interpretation Comments TROPONIN I (test 0.027 ng/mL See_Comment [Automated code = 2308705568) message] The system which generated this result [...] ? Lab Interpretation Normal (test code = 03960-8) [facility]th[facility] Time (PT) / [id number] 21:41:00 Test Item Value Reference Range Interpretation Comments PROTIME PATIENT (test See_Comment [Auto mated message] code = 5964-2) The system [employer] ich generated this result transmitted ref erence range: 12.0 - 1 4.7 Seconds. The re ference range was not u sed to interpret this result as normal/abnor mal. INR (test code = 6301-6) Nor mal INR <1.1; Warfarin Therap eutic range 2.0 to 3. 0 or 2.5 to 3.5, dep ending upon the indica tions. Lab Interpretation (test Normal code = 95261-7) [facility]AL [id number] 21:39:00 Test Item Value Reference Range Interpretation Comments NT-proBNP (test code 663 pg/mL See_Comment H [Autom ated = 4759004582) message] The system which generated this result transmitted reference range : <=450. The reference range was not used to interpret this result as normal/abnormal . ALYSSA (test code = ALYSSA) Biotin has been reported to cause a negative bias, interpret results relative to patient's use of biotin. Lab Interpretation Abnormal (test code = 98320-8) [facility]COMP. METABOLIC PANEL (85966)2020-03-21 21:37:00 Test Item Value Reference Range Interpretation Comments NA (test code = 139 mmol/L 135-145 7486026784) K (test code = 4.1 mmol/L 3.5-5 0972854512) CL (test code = 102 mmol/L 98-108 8259488326) CO2 TOTAL (test code = 29 mmol/L 23-31 5423799574) AGAP (test code = 2-16 2749808762) BUN (test code = 18 mg/dL 7-23 3298426267) GLUCOSE (test code = 277 mg/dL 70-110 H 9955772366) CREATININE (test code = 1.23 mg/dL 0.6-1.25 9774321463) TOTAL BILI (test code = 1.3 mg/dL 0.1-1.1 H 5827045882) CALCIUM (test code = 9.8 mg/dL 8.6-10.6 5023652172) T PROTEIN (test code = 7.0 g/dL 6.3-8.2 8091600875) ALBUMIN (test code = 4.2 g/dL 3.5-5 5172755692) ALK PHOS (test code = 50 U/L 34-122 8251222328) ALTv (test code = 15 U/L 5-50 1742-6) AST(SGOT) (test code = 22 U/L 13-40 2418277863) eGFR Calculation mL/min/1.73m2 (Non-) (test code = 9414919594) eGFR Calculation mL/min/1.73m2 () (test code = 2520000560) ALYSSA (test code = ALYSSA) Association of [...] tests). Lab Interpretation Abnormal (test code = 27813-7) [facility]kinLip[facility] [id number] 21:37:00 Test Item Value Reference Range Interpretation Comments LIPASE (test code = 9036706429) 161 U/L 0-220 Lab Interpretation (test code = Normal 42132-2) [facility] 1 [id number] 20:46:31HISTORY: Chest pain. TECHNIQUE: Portable AP view [...] Mild cardiomegaly. [facility]kinLava[facility] Acid Whole [id number] 20:43:00 Test Item Value Reference Range Interpretation Comments LACTIC ACID (test code = 1.91 mmol/L 0.3-2.6 3490242239) [facility] GLUCOSE (AUTOMATED)2020-03-07 20:58:00 Test Item Value Reference Range Interpretation Comments POCT GLU (test code = 5917021997) 216 mg/dL 70-110 H Lab Interpretation (test code = Abnormal 82402-8) [facility] GLUCOSE (AUTOMATED)2020-03-07 16:00:00 Test Item Value Reference Range Interpretation Comments POCT GLU (test code = 5728732800) 168 mg/dL 70-110 H Lab Interpretation (test code = Abnormal 78923-6) [facility] GLUCOSE (AUTOMATED)2020-03-07 13:07:00 Test Item Value Reference Range Interpretation Comments POCT GLU (test code = 0227385328) 148 mg/dL 70-110 H Lab Interpretation (test code = Abnormal 50953-7) [facility]TROPONIN [id number] 11:27:00 Test Item Value Reference Range Interpretation Comments TROPONIN I (test 0.051 ng/mL See_Comment H [Automated code = 0955669957) message] The system which generated this result [...] ? Lab Interpretation Abnormal (test code = 12140-2) [facility] [id number] 11:24:00 Test Item Value Reference Range Interpretation Comments NT-proBNP (test code 336 pg/mL See_Comment [Autom ated = 3224225767) message] The system which generated this result transmitted reference range : <=450. The reference range was not used to interpret this result as normal/abnormal . ALYSSA (test code = ALYSSA) Biotin has been reported to cause a negative bias, interpret results relative to patient's use of biotin. Lab Interpretation Normal (test code = 76975-9) [facility]kinBasi Metabolic Panel (NA, K, CL, CO2, GLUCOSE, BUN, CREATININE, CA)2020-03-07 11:14:00 Test Item Value Reference Range Interpretation Comments NA (test code = 138 mmol/L 135-145 5208359144) K (test code = 3.8 mmol/L 3.5-5 8699639050) CL (test code = 97 mmol/L 98-108 L 3804200151) CO2 TOTAL (test code = 30 mmol/L 23-31 0371013798) AGAP (test code = 2-16 2209853516) BUN (test code = 36 mg/dL 7-23 H 3106157772) GLUCOSE (test code = 140 mg/dL 70-110 H 4123628630) CREATININE (test code = 1.50 mg/dL 0.6-1.25 H 1736991961) CALCIUM (test code = 10.0 mg/dL 8.6-10.6 7823305482) eGFR Calculation mL/min/1.73m2 (Non-) (test code = 6602139677) eGFR Calculation mL/min/1.73m2 () (test code = 0892274212) ALYSSA (test code = ALYSSA) Association of [...] tests). Lab Interpretation Abnormal (test code = 83707-4) [facility]kinURIC [id number] 11:14:00 Test Item Value Reference Range Interpretation Comments URIC ACID (test code = 5971971919) 5.4 mg/dL 3.6-8 Lab Interpretation (test code = Normal 49290-1) [facility] WITH [id number] 10:53:00 Test Item Value Reference Range Interpretation [...] RDW-SD (test code = 45.1 fL 38.5-51.6 44991-3) RDW-CV (test code = 14.2 % 12.1-15.4 788-0) PLT (test code = See_Comment [Automated 777-3) message] The sy stem which generated this result transmitted reference range : 150 - 328 10*3/ ?L. The reference r corey was not used to interpret this result as normal/abnormal . MPV (test code = 9.8 fL 9.8-13 24767-0) NRBC/100 WBC (test See_Comment [Automat ed code = 7355723017) message] The system which generated this result transmitted reference range : 0.0 - 10.0 /100 WBCs. The refer ence range was not u sed to interpret th is result as normal/abnormal . NRBC x10^3 (test code <0.01 See_Comment [Auto mated = 4559513144) message] The s ystem which generated this result transmitted reference range : 10*3/?L. The reference range was not used to interpret this result as normal/abnormal . GRAN MAT (NEUT) % 51.0 % (test code = 273-8) IMM GRAN % (test code 0.50 % = 7424242234) LYMPH % (test code = 32.0 % 736-9) MONO % (test code = 11.3 % 5905-5) EOS % (test code = 4.3 % 713-8) BASO % (test code = 0.9 % 706-2) GRAN MAT x10^3(ANC) 2.85 10*3/uL 1.99-6.95 (test code = 4336789436) IMM GRAN x10^3 (test 0.03 10*3/uL 0-0.06 code = 9802287239) LYMPH x10^3 (test code 1.79 10*3/uL 1.09-3.23 = 731-0) MONO x10^3 (test code 0.63 10*3/uL 0.36-1.02 = 742-7) EOS x10^3 (test code = 0.24 10*3/uL 0.06-0.53 711-2) BASO x10^3 (test code 0.05 10*3/uL 0.01-0.09 = 704-7) Lab Interpretation Abnormal (test code = 62987-2) [facility] GLUCOSE (AUTOMATED)2020-03-06 22:46:00 Test Item Value Reference Range Interpretation Comments POCT GLU (test code = 8977720290) 209 mg/dL 70-110 H Lab Interpretation (test code = Abnormal 03946-7) [facility] GLUCOSE (AUTOMATED)2020-03-06 16:23:00 Test Item Value Reference Range Interpretation Comments POCT GLU (test code = 8494146491) 254 mg/dL 70-110 H Lab Interpretation (test code = Abnormal 33503-1) [facility] GLUCOSE (AUTOMATED)2020-03-06 12:51:00 Test Item Value Reference Range Interpretation Comments POCT GLU (test code = 2101958711) 126 mg/dL 70-110 H Lab Interpretation (test code = Abnormal 07806-6) [facility]TROPONIN [id number] 10:16:00 Test Item Value Reference Range Interpretation Comments TROPONIN I (test 0.056 ng/mL See_Comment H [Automated code = 5195980221) message] The system which generated this result [...] ? Lab Interpretation Abnormal (test code = 85311-4) [facility] (NA, K, CL, CO2, GLUCOSE, BUN, CREATININE, CA)2020-03-06 10:13:00 Test Item Value Reference Range Interpretation Comments NA (test code = 136 mmol/L 135-145 8574011106) K (test code = 4.1 mmol/L 3.5-5 9521562196) CL (test code = 95 mmol/L 98-108 L 1619965157) CO2 TOTAL (test code = 30 mmol/L 23-31 2864769221) AGAP (test code = 2-16 4520648666) BUN (test code = 35 mg/dL 7-23 H 9544050405) GLUCOSE (test code = 174 mg/dL 70-110 H 3616075552) CREATININE (test code = 1.67 mg/dL 0.6-1.25 H 1171845747) CALCIUM (test code = 9.7 mg/dL 8.6-10.6 2706173886) eGFR Calculation mL/min/1.73m2 (Non-) (test code = 9168626347) eGFR Calculation mL/min/1.73m2 () (test code = 0460545986) ALYSSA (test code = ALYSSA) Association of [...] tests). Lab Interpretation Abnormal (test code = 21136-6) [facility] WITH [id number] 09:16:00 Test Item Value Reference Range Interpretation Comments WBC (test code = See_Comment [Automated 0090-2) message] The sy stem which generated this [...] RDW-SD (test code = 45.6 fL 38.5-51.6 30719-5) RDW-CV (test code = 14.3 % 12.1-15.4 788-0) PLT (test code = See_Comment [Automated 777-3) message] The sy stem which generated this result transmitted reference range : 150 - 328 10*3/ ?L. The reference r corey was not used to interpret this result as normal/abnormal . MPV (test code = 9.8 fL 9.8-13 56928-2) NRBC/100 WBC (test See_Comment [Automat ed code = 9981968320) message] The system which generated this result transmitted reference range : 0.0 - 10.0 /100 WBCs. The refer ence range was not u sed to interpret th is result as normal/abnormal . NRBC x10^3 (test code <0.01 See_Comment [Auto mated = 9375496526) message] The s ystem which generated this result transmitted reference range : 10*3/?L. The reference range was not used to interpret this result as normal/abnormal . GRAN MAT (NEUT) % 56.1 % (test code = 770-8) IMM GRAN % (test code 0.10 % = 9008908033) LYMPH % (test code = 29.7 % 736-9) MONO % (test code = 9.6 % 5905-5) EOS % (test code = 3.8 % 713-8) BASO % (test code = 0.7 % 706-2) GRAN MAT x10^3(ANC) 3.79 10*3/uL 1.99-6.95 (test code = 6766013310) IMM GRAN x10^3 (test <0.03 0-0.06 code = 1782098636) LYMPH x10^3 (test code 2.01 10*3/uL 1.09-3.23 = 731-0) MONO x10^3 (test code 0.65 10*3/uL 0.36-1.02 = 742-7) EOS x10^3 (test code = 0.26 10*3/uL 0.06-0.53 711-2) BASO x10^3 (test code 0.05 10*3/uL 0.01-0.09 = 704-7) Lab Interpretation Abnormal (test code = 96791-7) [facility])2020-03-06 01:25:00 Test Item Value Reference Range Interpretation Comments POCT GLU (test code = 0346583784) 208 mg/dL 70-110 H Lab Interpretation (test code = Abnormal 30514-6) [facility]TR[facility] [id number] 00:08:00 Test Item Value Reference Range Interpretation Comments TROPONIN I (test 0.047 ng/mL See_Comment H [Automated code = 4203053027) message] The system which generated this result [...] ? Lab Interpretation Abnormal (test code = 54419-1) [facility] GLUCOSE (AUTOMATED)2020-03-05 21:19:00 Test Item Value Reference Range Interpretation Comments POCT GLU (test code = 8891896328) 234 mg/dL 70-110 H Lab Interpretation (test code = Abnormal 31514-1) [facility] GLUCOSE (AUTOMATED)2020-03-05 16:55:00 Test Item Value Reference Range Interpretation Comments POCT GLU (test code = 9806784022) 258 mg/dL 70-110 H Lab Interpretation (test code = Abnormal 04229-7) [facility] GLUCOSE (AUTOMATED)2020-03-05 12:59:00 Test Item Value Reference Range Interpretation Comments POCT GLU (test code = 3486778233) 194 mg/dL 70-110 H Lab Interpretation (test code = Abnormal 62461-4) [facility] [id number] 10:54:00 Test Item Value Reference Range Interpretation Comments TROPONIN I (test 0.071 ng/mL See_Comment H [Automated code = 2633456522) message] The system which generated this result [...] ? Lab Interpretation Abnormal (test code = 11534-8) [facility] Metabolic Panel (NA, K, CL, CO2, GLUCOSE, BUN, CREATININE, CA)2020-03-05 10:43:00 Test Item Value Reference Range Interpretation Comments NA (test code = 139 mmol/L 135-145 2014650628) K (test code = 4.1 mmol/L 3.5-5 6387164860) CL (test code = 101 mmol/L 98-108 7528323114) CO2 TOTAL (test code = 27 mmol/L 23-31 4630778135) AGAP (test code = 2-16 4325764811) BUN (test code = 25 mg/dL 7-23 H 5862297196) GLUCOSE (test code = 243 mg/dL 70-110 H 3609622445) CREATININE (test code = 1.22 mg/dL 0.6-1.25 2023807146) CALCIUM (test code = 9.8 mg/dL 8.6-10.6 4695164969) eGFR Calculation mL/min/1.73m2 (Non-) (test code = 6387009800) eGFR Calculation mL/min/1.73m2 () (test code = 6661129265) ALYSSA (test code = ALYSSA) Association of [...] tests). Lab Interpretation Abnormal (test code = 47132-9) [facility] WITH [id number] 10:23:00 Test Item Value Reference Range Interpretation Comments WBC (test code = See_Comment [Automated message] 3590-2) The system [employer] generated this result transmitted ref erence range: 4.20 - 1 0.70 10*3/?L. The re ference range was not u sed to interpret this result as normal/abnor mal. RBC (test code = See_Comment [Automated message] 297-8) The system [employer] generated this result transmitted ref erence range: [...] RDW-SD (test code 47.8 fL 38.5-51.6 = 43519-3) RDW-CV (test code 14.4 % 12.1-15.4 = 788-0) PLT (test code = See_Comment [Automated message] 077-3) The system [employer] generated this result transmitted ref erence range: 150 - 32 8 10*3/?L. The re ference range was not u sed to interpret this result as normal/abnor mal. MPV (test code = 9.8 fL 9.8-13 11741-4) NRBC/100 WBC (test See_Comment [Automat ed message] code = 9046124807) The syste m which generated this result transmitted ref erence range: 0.0 - 10 .0 /100 WBCs. The refer ence range was not u sed to interpret this result as normal/abnor mal. NRBC x10^3 (test <0.01 See_Comment [Automated message] code = 7278644643) The syste m which generated this result transmitted ref erence range: 10*3/?L. The reference range was not used to interpr et this result as normal/abnormal . GRAN MAT (NEUT) % 48.8 % (test code = 770-8) IMM GRAN % (test 0.20 % code = 2044598369) LYMPH % (test code 34.7 % = 736-9) MONO % (test code 10.8 % = 5905-5) EOS % (test code = 4.9 % 713-8) BASO % (test code 0.6 % = 706-2) GRAN MAT 2.49 10*3/uL 1.99-6.95 x10^3(ANC) (test code = 0567008789) IMM GRAN x10^3 <0.03 0-0.06 (test code = 0970873834) LYMPH x10^3 (test 1.77 10*3/uL 1.09-3.23 code = 731-0) MONO x10^3 (test 0.55 10*3/uL 0.36-1.02 code = 742-7) EOS x10^3 (test 0.25 10*3/uL 0.06-0.53 code = 711-2) BASO x10^3 (test 0.03 10*3/uL 0.01-0.09 code = 704-7) [facility] CHEST 1 [id number] 03:06:08 No acute cardiopulmonary process. Unchanged enlargement [...] with the abovereport.[facility] CORONAVIRUS COVID-19 [id number] 00:34:00 Test Item Value Reference Range Interpretation Comments SARS-CoV-2 (test code = Not Detected Not Detected 54964-9) ALYSSA (test code = ALYSSA) ID NOW COVID-19 Assay is an isothermal nucleic acid amplification test intended for the qualitative detection of nucleic acid from SARS-CoV-2 viral RNA in nasopharyngeal ([employer]) specimens. It is used under Emergency Use [...] indicated. Lab Interpretation Normal (test code = 06448-8) [facility]kin[facility]roponin [id number] 00:08:00 Test Item Value Reference Range Interpretation Comments TROPONIN I (test 0.056 ng/mL See_Comment H [Automated code = 6628698460) message] The system which generated this result [...] ? Lab Interpretation Abnormal (test code = 98691-2) [facility]kinN-TERMINAL [id number] 00:04:00 Test Item Value Reference Range Interpretation Comments NT-proBNP (test code 562 pg/mL See_Comment H [Autom ated = 3235358269) message] The system which generated this result transmitted reference range : <=450. The reference range was not used to interpret this result as normal/abnormal . ALYSSA (test code = ALYSSA) Biotin has been reported to cause a negative bias, interpret results relative to patient's use of biotin. Lab Interpretation Abnormal (test code = 22958-2) [facility]kinProthrombin Time (PT) / [id number] 23:57:00 Test Item Value Reference Range Interpretation [...] tions. Lab Interpretation (test Normal code = 86289-2) [facility] Met[facility] (NA, K, CL, CO2, GLUCOSE, BUN, CREATININE, CA)2020-03-04 23:56:00 Test Item Value Reference Range Interpretation Comments NA (test code = 139 mmol/L 135-145 0444860459) K (test code = 4.1 mmol/L 3.5-5 8038379176) CL (test code = 102 mmol/L 98-108 8194692988) CO2 TOTAL (test code = 29 mmol/L 23-31 2363828091) AGAP (test code = 2-16 6577938218) BUN (test code = 23 mg/dL 7-23 4262038287) GLUCOSE (test code = 193 mg/dL 70-110 H 3161340947) CREATININE (test code = 1.25 mg/dL 0.6-1.25 4353340008) CALCIUM (test code = 9.7 mg/dL 8.6-10.6 3821081985) eGFR Calculation mL/min/1.73m2 (Non-) (test code = 3721862135) eGFR Calculation mL/min/1.73m2 () (test code = 9258131924) ALYSSA (test code = ALYSSA) Association of [...] tests). Lab Interpretation Abnormal (test code = 22761-2) [facility]atic Function Panel (ALB, T.PRO, BILI T, BU/BC, ALT, AST, ALK PHOS)2020-03-04 23:56:00 Test Item Value Reference Range Interpretation Comments TOTAL BILI (test code = 9245391279) 1.1 mg/dL 0.1-1.1 BILI UNCON (test code = 3881349785) 1.1 mg/dL 0.1-1.1 BILI CONJ (test code = 6009410310) 0.0 mg/dL 0-0.3 T PROTEIN (test code = 1533128853) 7.1 g/dL 6.3-8.2 ALBUMIN (test code = 1993321877) 4.1 g/dL 3.5-5 ALK PHOS (test code = 1445046654) 61 U/L 34-122 ALTv (test code = 1742-6) 16 U/L 5-50 AST(SGOT) (test code = 3227413064) 23 U/L 13-40 Lab Interpretation (test code = Normal 84950-9) [facility]kinLipase [id number] 23:56:00 Test Item Value Reference Range Interpretation Comments LIPASE (test code = 1644037280) 149 U/L 0-220 Lab Interpretation (test code = Normal 20104-7) [facility] LufkinaPTT2020-04-19 23:56:00 Test Item Value Reference Range Interpretation Comments APTT Patient (test See_Comment [Automat ed code = 3173-2) message] The system which generated this result transmitted reference range : 23 - 38 Seconds . The reference range was not used to interpr et this result as normal/abnormal . ALYSSA (test code = ALYSSA) The [facility] patient population mean normal value for aPTT is 30 seconds. Lab Interpretation Normal (test code = 68353-3) [facility] WITH [id number] 23:46:00 Test Item Value Reference Range Interpretation [...] RDW-SD (test code = 48.3 fL 38.5-51.6 18786-9) RDW-CV (test code = 14.7 % 12.1-15.4 788-0) PLT (test code = See_Comment [Automated 777-3) message] The sy stem which generated this result transmitted reference range : 150 - 328 10*3/ ?L. The reference r corey was not used to interpret this result as normal/abnormal . MPV (test code = 9.8 fL 9.8-13 00212-6) NRBC/100 WBC (test See_Comment [Automat ed code = 8814406022) message] The system which generated this result transmitted reference range : 0.0 - 10.0 /100 WBCs. The refer ence range was not u sed to interpret th is result as normal/abnormal . NRBC x10^3 (test code <0.01 See_Comment [Auto mated = [id number]) message] The s ystem which generated this result transmitted reference range : 10*3/?L. The reference range was not used to interpret this result as normal/abnormal . GRAN MAT (NEUT) % 60.1 % (test code = 770-8) IMM GRAN % (test code 0.20 % = [id number]) LYMPH % (test code = 26.4 % 736-9) MONO % (test code = 9.9 % 5905-5) EOS % (test code = 2.8 % 713-8) BASO % (test code = 0.6 % 706-2) GRAN MAT x10^3(ANC) 3.17 10*3/uL 1.99-6.95 (test code = 9712528756) IMM GRAN x10^3 (test <0.03 0-0.06 code = 5475821216) LYMPH x10^3 (test code 1.39 10*3/uL 1.09-3.23 = 731-0) MONO x10^3 (test code 0.52 10*3/uL 0.36-1.02 = 742-7) EOS x10^3 (test code = 0.15 10*3/uL 0.06-0.53 711-2) BASO x10^3 (test code 0.03 10*3/uL 0.01-0.09 = 704-7) Lab Interpretation Abnormal (test code = 46505-9) [facility] GLUCOSE (AUTOMATED)2020-03-02 16:04:00 Test Item Value Reference Range Interpretation Comments POCT GLU (test code = 5207590053) 214 mg/dL 70-110 H Lab Interpretation (test code = Abnormal 82240-1) [facility] GLUCOSE (AUTOMATED)2020-03-02 16:04:00 Test Item Value Reference Range Interpretation Comments POCT GLU (test code = 2015636104) 271 mg/dL 70-110 H Lab Interpretation (test code = Abnormal 95080-6) [facility] [id number] 09:43:00 Test Item Value Reference Range Interpretation Comments NT-proBNP (test code 1670 pg/mL See_Comment H [Autom ated = 3258771918) message] The system which generated this result transmitted reference range : <=450. The reference range was not used to interpret this result as normal/abnormal . ALYSSA (test code = ALYSSA) Biotin has been reported to cause a negative bias, interpret results relative to patient's use of biotin. Lab Interpretation Abnormal (test code = 69408-9) [facility] METABOLIC PANEL (NA, K, CL, CO2, GLUCOSE, BUN, CREATININE, CA)2020-03-02 09:33:00 Test Item Value Reference Range Interpretation Comments NA (test code = 143 mmol/L 135-145 4991696425) K (test code = 3.8 mmol/L 3.5-5 0376735464) CL (test code = 105 mmol/L 98-108 4768660628) CO2 TOTAL (test code = 28 mmol/L 23-31 6693184703) AGAP (test code = 2-16 3626265140) BUN (test code = 19 mg/dL 7-23 1430250957) GLUCOSE (test code = 152 mg/dL 70-110 H 4203971056) CREATININE (test code = 1.18 mg/dL 0.6-1.25 5531952922) CALCIUM (test code = 9.0 mg/dL 8.6-10.6 8233280899) eGFR Calculation mL/min/1.73m2 (Non-) (test code = 9371597561) eGFR Calculation mL/min/1.73m2 () (test code = 1337740137) ALYSSA (test code = ALYSSA) Association of [...] tests). Lab Interpretation Abnormal (test code = 92285-3) [facility]2020-04-17 09:33:00 Test Item Value Reference Range Interpretation Comments MAGNESIUM (test code = 7785684366) 1.8 mg/dL 1.7-2.4 Lab Interpretation (test code = Normal 15274-0) [facility]2020-03-01 20:42:00 Test Item Value Reference Range Interpretation Comments POCT GLU (test code = 7549553464) 231 mg/dL 70-110 H Lab Interpretation (test code = Abnormal 92262-9) [facility]VITAMIN B12, [id number] 11:51:00 Test Item Value Reference Range Interpretation Comments VIT B12 (test code = 325 pg/mL 240-930 6970788709) ALYSSA (test code = ALYSSA) Biotin has been reported to cause a positive bias, interpret results relative to patient's use of biotin. Lab Interpretation (test Normal code = 36147-5) [facility]OL[facility]2020-04-16 11:49:00 Test Item Value Reference Range Interpretation Comments FOLATE SER (test code = >20.0 3-20 H Slig ht hemolysis 3300968898) Lab Interpretation (test Abnormal code = 68176-4) [facility]PROCALCITONIN2020-04-16 10:49:00 Test Item Value Reference Range Interpretation Comments Procalcitonin (test 3.05 ng/mL <0.07 H code = 8296409430) ALYSSA (test code = ALYSSA) INTERPRETATION OF [...] lung abscess/empyema. For further information please refer to:[email or web address] Lab Interpretation Abnormal (test code = 47863-4) [facility]TROPONIN [id number] 09:58:00 Test Item Value Reference Range Interpretation Comments TROPONIN I (test 0.093 ng/mL See_Comment H [Automated code = 1739598318) message] The system which generated this result [...] ? Lab Interpretation Abnormal (test code = 08824-8) [facility]-TERMINAL [id number] 09:55:00 Test Item Value Reference Range Interpretation Comments NT-proBNP (test code 4450 pg/mL See_Comment H [Autom ated = 7396612993) message] The system which generated this result transmitted reference range : <=450. The reference range was not used to interpret this result as normal/abnormal . ALYSSA (test code = ALYSSA) Biotin has been reported to cause a negative bias, interpret results relative to patient's use of biotin. Lab Interpretation Abnormal (test code = 96607-1) [facility] Metabolic Panel (NA, K, CL, CO2, GLUCOSE, BUN, CREATININE, CA)2020-03-01 09:50:00 Test Item Value Reference Range Interpretation Comments NA (test code = 141 mmol/L 135-145 1111464119) K (test code = 3.5 mmol/L 3.5-5 8898590047) CL (test code = 105 mmol/L 98-108 5887413380) CO2 TOTAL (test code = 26 mmol/L 23-31 9543840768) AGAP (test code = 2-16 8071260958) BUN (test code = 13 mg/dL 7-23 8686598655) GLUCOSE (test code = 219 mg/dL 70-110 H 3661360392) CREATININE (test code = 1.01 mg/dL 0.6-1.25 4912227051) CALCIUM (test code = 8.7 mg/dL 8.6-10.6 2255714111) eGFR Calculation mL/min/1.73m2 (Non-) (test code = 4985913018) eGFR Calculation mL/min/1.73m2 () (test code = 6358930130) ALYSSA (test code = ALYSSA) Association of [...] tests). Lab Interpretation Abnormal (test code = 25986-7) [facility]kinMagnesium [id number] 09:50:00 Test Item Value Reference Range Interpretation Comments MAGNESIUM (test code = 3189239295) 1.9 mg/dL 1.7-2.4 Lab Interpretation (test code = Normal 03648-5) [facility] WITH [id number] 09:22:00 Test Item Value Reference Range Interpretation Comments WBC (test code = See_Comment [Automated 6690-2) message] The sy stem which generated this result transmitted reference range : 4.20 - 10.70 10*3/?L. The reference range was not used to interpret this result as normal/abnormal . RBC (test code = See_Comment L [Automated 729-8) message] The sy stem which generated this [...] RDW-SD (test code = 47.8 fL 38.5-51.6 30099-2) RDW-CV (test code = 14.8 % 12.1-15.4 788-0) PLT (test code = See_Comment L [Automated 777-3) message] The sy stem which generated this result transmitted reference range : 150 - 328 10*3/ ?L. The reference r corey was not used to interpret this result as normal/abnormal . MPV (test code = 9.9 fL 9.8-13 78744-7) NRBC/100 WBC (test See_Comment [Automat ed code = 0284688933) message] The system which generated this result transmitted reference range : 0.0 - 10.0 /100 WBCs. The refer ence range was not u sed to interpret th is result as normal/abnormal . NRBC x10^3 (test code <0.01 See_Comment [Auto mated = 5004071007) message] The s ystem which generated this result transmitted reference range : 10*3/?L. The reference range was not used to interpret this result as normal/abnormal . GRAN MAT (NEUT) % 66.0 % (test code = 770-8) IMM GRAN % (test code 0.30 % = 1711762100) LYMPH % (test code = 20.8 % 736-9) MONO % (test code = 9.5 % 5905-5) EOS % (test code = 2.8 % 713-8) BASO % (test code = 0.6 % 706-2) GRAN MAT x10^3(ANC) 4.44 10*3/uL 1.99-6.95 (test code = 5699573088) IMM GRAN x10^3 (test <0.03 0-0.06 code = 5227027033) LYMPH x10^3 (test code 1.40 10*3/uL 1.09-3.23 = 731-0) MONO x10^3 (test code 0.64 10*3/uL 0.36-1.02 = 742-7) EOS x10^3 (test code = 0.19 10*3/uL 0.06-0.53 711-2) BASO x10^3 (test code 0.04 10*3/uL 0.01-0.09 = 704-7) Lab Interpretation Abnormal (test code = 31617-3) [facility]kinGLYCOSYLATED HEMOGLOBIN (A1C)2020-03-01 06:49:00 Test Item Value Reference Interpretation Comments Range HGB A1C (test code = See_Comment H [Autom ated 4548-4) message] The system which generated this result transmitted reference range : 4.0 - 6.0 % NGSP. The reference range was not used to interpret this result as normal/abnormal . ALSYSA (test code = %A1C (NGSP) ALYSSA) Interpretation (ADA)4.8-5.6 ? ? Normal or (Non-Diabetic Range)5.7-6.4 ? ? Increased Risk (Pre-Diabetic)>6.5 ?Diabetes Indicated Lab Interpretation Abnormal (test code = 52627-9) [facility]kinURIC [id number] 06:25:00 Test Item Value Reference Range Interpretation Comments URIC ACID (test code = 9775824537) 2.3 mg/dL 3.6-8 L Lab Interpretation (test code = Abnormal 28029-9) [facility]kinSEDIMENTATION [id number] 05:25:00 Test Item Value Reference Range Interpretation Comments ESR (test code = See_Comment H [Automated message] 2169432197) The system [employer] generated this result transmitted ref erence range: 0 - 10 m m/HR. The reference r corey was not used to interpret this result as normal/abnor mal. Lab Interpretation (test Abnormal code = 64621-6) [facility]N-TERMINAL [id number] 04:07:00 Test Item Value Reference Range Interpretation Comments NT-proBNP (test code 4080 pg/mL See_Comment H [Autom ated = 0204774348) message] The system which generated this result transmitted reference range : <=450. The reference range was not used to interpret this result as normal/abnormal . ALYSSA (test code = ALSYSA) Biotin has been reported to cause a negative bias, interpret results relative to patient's use of biotin. Lab Interpretation Abnormal (test code = 16380-0) [facility] GLU[facility]SE (AUTOMATED)2020-03-01 03:42:00 Test Item Value Reference Range Interpretation Comments POCT GLU (test code = 4646116725) 190 mg/dL 70-110 H Lab Interpretation (test code = Abnormal 77251-5) [facility]kinTROPONIN [id number] 03:30:00 Test Item Value Reference Range Interpretation Comments TROPONIN I (test 0.098 ng/mL See_Comment H [Automated code = 2954950760) message] The system which generated this result [...] ? Lab Interpretation Abnormal (test code = 12124-4) [facility]kinHEPATIC FUNCTION PANEL (56993) (ALB,T.PRO,BILI T,BU/BC,ALT,AST,ALK PHOS)2020-03-01 03:24:00 Test Item Value Reference Range Interpretation Comments TOTAL BILI (test code = 1679730841) 2.2 mg/dL 0.1-1.1 H BILI UNCON (test code = 3608231881) 2.0 mg/dL 0.1-1.1 H BILI CONJ (test code = 8025054510) 0.0 mg/dL 0-0.3 T PROTEIN (test code = 2810174591) 6.7 g/dL 6.3-8.2 ALBUMIN (test code = 5615130723) 4.0 g/dL 3.5-5 ALK PHOS (test code = 3824491423) 48 U/L 34-122 ALTv (test code = 1742-6) 18 U/L 5-50 AST(SGOT) (test code = 7357300281) 57 U/L 13-40 H Lab Interpretation (test code = Abnormal 69751-9) [facility]kinPhosphorus [id number] 03:17:00 Test Item Value Reference Range Interpretation Comments PHOSPHORUS (test code = 3.1 mg/dL 2.5-5 Slig ht hemolysis 7630220551) Lab Interpretation (test Normal code = 95369-1) [facility]kinPROTHROMBIN TIME / [id number] 03:08:00 Test Item Value Reference Range Interpretation Comments PROTIME PATIENT (test See_Comment [Auto mated message] code = 5964-2) The system [employer] ich generated this result transmitted ref erence range: 12.0 - 1 4.7 Seconds. The re ference range was not u sed to interpret this result as normal/abnor mal. INR (test code = 6301-6) Nor mal INR <1.1; Warfarin Therap eutic range 2.0 to 3. 0 or 2.5 to 3.5, dep ending upon the indica tions. Lab Interpretation (test Normal code = 18469-8) [facility]kinCREATINE [id number] 03:01:00 Test Item Value Reference Range Interpretation Comments CK (test code = 2959786871) 68 U/L 33-194 Lab Interpretation (test code = Normal 12525-9) [facility]kinURIC [id number] 02:41:00 Test Item Value Reference Range Interpretation Comments URIC ACID (test code = 6523093872) 2.3 mg/dL 3.6-8 L Lab Interpretation (test code = Abnormal 16171-3) [facility]kinTHYROID STIMULATING [id number] 02:26:00 Test Item Value Reference Range Interpretation Comments TSH (test code = See_Comment [Automated message] 1805243870) The system ic h generated this result transmitted ref erence range: 0.45 - 4 .70 mIU/L. The refe rence range was not u sed to interpret this result as normal/abnor mal. Lab Interpretation (test Normal code = 52860-6) [facility]kinN-TERMINAL [id number] 02:04:00 Test Item Value Reference Range Interpretation Comments NT-proBNP (test code 4390 pg/mL See_Comment H [Autom ated = 9675124887) message] The system which generated this result transmitted reference range : <=450. The reference range was not used to interpret this result as normal/abnormal . ALYSSA (test code = ALYSSA) Biotin has been reported to cause a negative bias, interpret results relative to patient's use of biotin. Lab Interpretation Abnormal (test code = 49144-3) [facility]kinMAGNESIUM2020-04-16 02:01:00 Test Item Value Reference Range Interpretation Comments MAGNESIUM (test code = 5614193995) 1.5 mg/dL 1.7-2.4 L Lab Interpretation (test code = Abnormal 13166-5) [facility]kinLIPASE2020-04-16 00:22:00 Test Item Value Reference Range Interpretation Comments LIPASE (test code = 2844726615) 68 U/L 0-220 Lab Interpretation (test code = Normal 04409-1) [facility]kinCORONAVIRUS COVID-19 [id number] 23:42:00 Test Item Value Reference Range Interpretation Comments SARS-CoV-2 (test code = Not Detected Not Detected 49073-3) ALYSSA (test code = ALYSSA) ID NOW COVID-19 Assay is an isothermal nucleic acid amplification test intended for the qualitative detection of nucleic acid from SARS-CoV-2 viral RNA in nasopharyngeal ([employer]) specimens. It is used under Emergency Use [...] indicated. Lab Interpretation Normal (test code = 66589-9) [facility]kinXR CHEST 1 VW [id number] 23:26:02 No acute intrathoracic abnormality, specifically no radiographic findingsto suggest COVID-19 pneumonia. Disclaimer: Generally, the findings on chest imaging in COVID-19 are notspecific, and overlap with other infections, including influenza, H1N1,SARS and MERS. According to the Centers for Disease Control (CDC) and recent statement ofthe [employer], viral testing remains the [...] overlie the mid thoracic spine. [facility], Radiant ResultsInft User - 02/29/2020 6:27 [...] Disease Control (CDC) and recent statement ofthe [employer], viral testing remains the only specificmethod of diagnosis. Confirmation with the viral test is required, even ifradiologic findings are suggestive of COVID-[address]. Preliminary Report Dictated by Resident: Radu Boo MD., have reviewed this study and agree with theabovereport.[facility] LufkinWendy [id number] 22:59:00 Test Item Value Reference Range Interpretation Comments TROPONIN I (test 0.071 ng/mL See_Comment H [Automated code = 0505493080) message] The system which generated this result [...] ? Lab Interpretation Abnormal (test code = 72839-5) [facility] LufkinBasi Metabolic Panel (NA, K, CL, CO2, GLUCOSE, BUN, CREATININE, CA)2020-02-29 22:48:00 Test Item Value Reference Range Interpretation Comments NA (test code = 141 mmol/L 135-145 5028202309) K (test code = 3.2 mmol/L 3.5-5 L 0118309308) CL (test code = 104 mmol/L 98-108 9217635476) CO2 TOTAL (test code = 25 mmol/L 23-31 9101197584) AGAP (test code = 2-16 4646813065) BUN (test code = 12 mg/dL 7-23 4075801950) GLUCOSE (test code = 250 mg/dL 70-110 H 4637123657) CREATININE (test code = 1.02 mg/dL 0.6-1.25 6181609577) CALCIUM (test code = 8.9 mg/dL 8.6-10.6 8036913909) eGFR Calculation mL/min/1.73m2 (Non-) (test code = 5703724398) eGFR Calculation mL/min/1.73m2 () (test code = 7395931314) ALYSSA (test code = ALYSSA) Association of [...] tests). Lab Interpretation Abnormal (test code = 54275-6) [facility] WITH [id number] 22:41:00 Test Item Value Reference Range Interpretation Comments WBC (test code = See_Comment [Automated 3235-2) message] The sy stem which generated this [...] RDW-SD (test code = 46.6 fL 38.5-51.6 33526-2) RDW-CV (test code = 14.6 % 12.1-15.4 788-0) PLT (test code = See_Comment [Automated 777-3) message] The sy stem which generated this result transmitted reference range : 150 - 328 10*3/ ?L. The reference r corey was not used to interpret this result as normal/abnormal . MPV (test code = 9.7 fL 9.8-13 L 74315-0) NRBC/100 WBC (test See_Comment [Automat ed code = 2271241096) message] The system which generated this result transmitted reference range : 0.0 - 10.0 /100 WBCs. The refer ence range was not u sed to interpret th is result as normal/abnormal . NRBC x10^3 (test code <0.01 See_Comment [Auto mated = 4143223902) message] The s ystem which generated this result transmitted reference range : 10*3/?L. The reference range was not used to interpret this result as normal/abnormal . GRAN MAT (NEUT) % 68.6 % (test code = 770-8) IMM GRAN % (test code 0.30 % = 1214672008) LYMPH % (test code = 18.6 % 736-9) MONO % (test code = 10.1 % 5905-5) EOS % (test code = 1.8 % 713-8) BASO % (test code = 0.6 % 706-2) GRAN MAT x10^3(ANC) 4.29 10*3/uL 1.99-6.95 (test code = 4954734983) IMM GRAN x10^3 (test <0.03 0-0.06 code = 5255168203) LYMPH x10^3 (test code 1.16 10*3/uL 1.09-3.23 = 731-0) MONO x10^3 (test code 0.63 10*3/uL 0.36-1.02 = 742-7) EOS x10^3 (test code = 0.11 10*3/uL 0.06-0.53 711-2) BASO x10^3 (test code 0.04 10*3/uL 0.01-0.09 = 704-7) Lab Interpretation Abnormal (test code = 64999-2) [facility] LufkinLavaic Acid Whole [id number] 22:38:00 Test Item Value Reference Range Interpretation Comments LACTIC ACID (test code = 1.88 mmol/L 0.3-2.6 5947328897) [facility]kinPOPA GLUCOSE (AUTOMATED)2020-01-17 18:18:00 Test Item Value Reference Range Interpretation Comments POCT GLU (test code = 5452713409) 290 mg/dL 70-110 H Lab Interpretation (test code = Abnormal 41296-5) [facility]kinTROPONIN [id number] 18:01:00 Test Item Value Reference Range Interpretation Comments TROPONIN I (test 0.065 ng/mL See_Comment H [Automated code = 4726291978) message] The system which generated this result [...] ? Lab Interpretation Abnormal (test code = 13674-8) [facility] LufkinaPTT2020-03-03 17:10:00 Test Item Value Reference Range Interpretation Comments APTT Patient (test See_Comment H [Automat ed code = 3173-2) message] The system which generated this result transmitted reference range : 23 - 38 Seconds . The reference range was not used to interpr et this result as normal/abnormal . ALYSSA (test code = ALYSSA) The [facility] patient population mean normal value for aPTT is 30 seconds. Lab Interpretation Abnormal (test code = 88631-1) [facility]kinPOCT GLUCOSE (AUTOMATED)2020-01-17 11:59:00 Test Item Value Reference Range Interpretation Comments POCT GLU (test code = 6404362936) 185 mg/dL 70-110 H Lab Interpretation (test code = Abnormal 31942-4) [facility]kinTROPONIN [id number] 11:23:00 Test Item Value Reference Range Interpretation Comments TROPONIN I (test 0.073 ng/mL See_Comment H [Automated code = 8183275697) message] The system which generated this result [...] ? Lab Interpretation Abnormal (test code = 53610-1) [facility] Metabolic Panel (NA, K, CL, CO2, GLUCOSE, BUN, CREATININE, CA)2020-01-17 11:16:00 Test Item Value Reference Range Interpretation Comments NA (test code = 136 mmol/L 135-145 0389207434) K (test code = 3.3 mmol/L 3.5-5 L 5671789550) CL (test code = 101 mmol/L 98-108 0957273948) CO2 TOTAL (test code = 26 mmol/L 23-31 9489572803) AGAP (test code = 2-16 9457617120) BUN (test code = 19 mg/dL 7-23 1726176635) GLUCOSE (test code = 227 mg/dL 70-110 H 4324677559) CREATININE (test code = 1.33 mg/dL 0.6-1.25 H 8109743464) CALCIUM (test code = 9.1 mg/dL 8.6-10.6 9059919235) eGFR Calculation mL/min/1.73m2 (Non-) (test code = 4822620372) eGFR Calculation mL/min/1.73m2 () (test code = 5722038405) ALYSSA (test code = ALYSSA) Association of [...] tests). Lab Interpretation Abnormal (test code = 66832-0) [facility]ufkinaPTT2020-03-03 11:00:00 Test Item Value Reference Range Interpretation Comments APTT Patient (test See_Comment H [Automat ed code = 3173-2) message] The system which generated this result transmitted reference range : 23 - 38 Seconds . The reference range was not used to interpr et this result as normal/abnormal . ALYSSA (test code = ALYSSA) The [facility] patient population mean normal value for aPTT is 30 seconds. Lab Interpretation Abnormal (test code = 18053-8) [facility]ufkinCBC WITH [id number] 10:43:00 Test Item Value Reference Range Interpretation Comments WBC (test code = See_Comment [Automated message] 6690-2) The system [employer] generated this result transmitted ref erence range: 4.20 - 1 0.70 10*3/?L. The re ference range was not u sed to interpret this result as normal/abnor mal. RBC (test code = See_Comment [Automated message] 789-8) The system [employer] generated this result transmitted ref erence range: [...] RDW-SD (test code 41.5 fL 38.5-51.6 = 10304-6) RDW-CV (test code 12.8 % 12.1-15.4 = 788-0) PLT (test code = See_Comment [Automated message] 777-3) The system [employer] h generated this result transmitted ref erence range: 150 - 32 8 10*3/?L. The re ference range was not u sed to interpret this result as normal/abnor mal. MPV (test code = 10.7 fL 9.8-13 38566-3) NRBC/100 WBC (test See_Comment [Automat ed message] code = 1448110189) The syste m which generated this result transmitted ref erence range: 0.0 - 10 .0 /100 WBCs. The refer ence range was not u sed to interpret this result as normal/abnor mal. NRBC x10^3 (test <0.01 See_Comment [Automated message] code = 4165106769) The syste m which generated this result transmitted ref erence range: 10*3/?L. The reference range was not used to interpr et this result as normal/abnormal . GRAN MAT (NEUT) % 56.1 % (test code = 770-8) IMM GRAN % (test 0.30 % code = 6462069863) LYMPH % (test code 29.5 % = 736-9) MONO % (test code 9.9 % = 5905-5) EOS % (test code = 3.3 % 713-8) BASO % (test code 0.9 % = 706-2) GRAN MAT 3.73 10*3/uL 1.99-6.95 x10^3(ANC) (test code = 0280698051) IMM GRAN x10^3 <0.03 0-0.06 (test code = 0900440953) LYMPH x10^3 (test 1.96 10*3/uL 1.09-3.23 code = 731-0) MONO x10^3 (test 0.66 10*3/uL 0.36-1.02 code = 742-7) EOS x10^3 (test 0.22 10*3/uL 0.06-0.53 code = 711-2) BASO x10^3 (test 0.06 10*3/uL 0.01-0.09 code = 704-7) [facility] GLUCOSE (AUTOMATED)2020-01-17 01:49:00 Test Item Value Reference Range Interpretation Comments POCT GLU (test code = 1897856335) 305 mg/dL 70-110 H Lab Interpretation (test code = Abnormal 09379-3) [facility] GLUCOSE (AUTOMATED)2020-01-17 00:01:00 Test Item Value Reference Range Interpretation Comments POCT GLU (test code = 8996405408) 271 mg/dL 70-110 H Lab Interpretation (test code = Abnormal 17218-9) [facility]PTT2020-03-02 22:23:00 Test Item Value Reference Range Interpretation Comments APTT Patient (test See_Comment H [Automat ed code = 3173-2) message] The system which generated this result transmitted reference range : 23 - 38 Seconds . The reference range was not used to interpr et this result as normal/abnormal . ALYSSA (test code = ALYSSA) The [facility] patient population mean normal value for aPTT is 30 seconds. Lab Interpretation Abnormal (test code = 67160-4) [facility]kinTROPONIN [id number] 21:22:00 Test Item Value Reference Range Interpretation Comments TROPONIN I (test 0.061 ng/mL See_Comment H [Automated code = 8181055004) message] The system which generated this result [...] ? Lab Interpretation Abnormal (test code = 89155-1) [facility]PO[facility] GLU[facility]SE (AUTOMATED)2020-01-16 17:37:00 Test Item Value Reference Range Interpretation Comments POCT GLU (test code = 7994475598) 271 mg/dL 70-110 H Lab Interpretation (test code = Abnormal 16840-2) [facility] 12:47:00 Test Item Value Reference Range Interpretation Comments APTT Patient (test See_Comment HH [Automat ed code = 3173-2) message] The system which generated this result transmitted reference range : 23 - 38 Seconds . The reference range was not used to interpr et this result as normal/abnormal . ALYSSA (test code = ALYSSA) The [facility] patient population mean normal value for aPTT is 30 seconds. Lab Interpretation Abnormal (test code = 07705-8) [facility]OP[facility] [id number] 12:35:00 Test Item Value Reference Range Interpretation Comments TROPONIN I (test 0.074 ng/mL See_Comment H [Automated code = 8942306923) message] The system which generated this result [...] ? Lab Interpretation Abnormal (test code = 09341-4) [facility]kinLIPID PANEL (87548)(TOTAL CHOLESTEROL, TRIGLYCERIDES, HDL)2020-01-16 12:23:00 Test Item Value Reference Range Interpretation Comments CHOL (test code = 95 mg/dL 120-200 L 6118766202) HDL (test code = 44 mg/dL >40 3390737972) HDLC RATIO (test code = See_Comment [Au tomated message] 7848220264) The system [employer] generated this result transmitted ref erence range: <=5.0. T he reference range was not used to int erpret this result as normal/abnormal . TRIG (test code = 89 mg/dL 30-170 5472357803) LDL CHOL (test code = 33 mg/dL See_Comment [Auto mated message] 01456-3) The system [employer] generated this result transmitted ref erence range: <=160. T he reference range was not used to int erpret this result as normal/abnormal . VLDL (test code = 18 mg/dL 5-60 6747215580) Lab Interpretation (test Abnormal code = 67844-8) [facility]cosylated Hemoglobin (A1C)2020-01-16 09:03:00 Test Item Value Reference [...] Indicated Lab Interpretation Abnormal (test code = 45384-2) [facility]kinCritical [id number] 05:48:18Charanjit Heck MD ? ? 01/15/2020 11:48 [...] old charts and examination of [facility]UnTexas [facility] AllenProthrombin Time (PT) / [id number] 05:28:00 Test Item Value Reference Range Interpretation [...] tions. Lab Interpretation (test Normal code = 32932-7) [facility]2020-03-02 05:27:00 Test Item Value Reference Range Interpretation Comments APTT Patient (test See_Comment [Automat ed code = 3173-2) message] The system which generated this result transmitted reference range : 23 - 38 Seconds . The reference range was not used to interpr et this result as normal/abnormal . ALYSSA (test code = ALYSSA) The [facility] patient population mean normal value for aPTT is 30 seconds. Lab Interpretation Normal (test code = 93984-8) [facility]kin[facility]roponin [id number] 05:11:00 Test Item Value Reference Range Interpretation Comments TROPONIN I (test 0.075 ng/mL See_Comment H [Automated code = 2738390439) message] The system which generated this result [...] ? Lab Interpretation Abnormal (test code = 65432-6) [facility]-TERMINAL [id number] 05:08:00 Test Item Value Reference Range Interpretation Comments NT-proBNP (test code 896 pg/mL See_Comment H [Autom ated = 3196005685) message] The system which generated this result transmitted reference range : <=450. The reference range was not used to interpret this result as normal/abnormal . ALYSSA (test code = ALYSSA) Biotin has been reported to cause a negative bias, interpret results relative to patient's use of biotin. Lab Interpretation Abnormal (test code = 34220-3) [facility] Metabolic Panel (NA, K, CL, CO2, GLUCOSE, BUN, CREATININE, CA)2020-01-16 04:59:00 Test Item Value Reference Range Interpretation Comments NA (test code = 136 mmol/L 135-145 5324124885) K (test code = 4.0 mmol/L 3.5-5 6048881535) CL (test code = 101 mmol/L 98-108 8837899540) CO2 TOTAL (test code = 27 mmol/L 23-31 4503851348) AGAP (test code = 2-16 5009805531) BUN (test code = 17 mg/dL 7-23 1087873906) GLUCOSE (test code = 445 mg/dL 70-110 H 7959970569) CREATININE (test code = 1.29 mg/dL 0.6-1.25 H 8333500906) CALCIUM (test code = 8.8 mg/dL 8.6-10.6 0141278384) eGFR Calculation mL/min/1.73m2 (Non-) (test code = 0150861898) eGFR Calculation mL/min/1.73m2 () (test code = 7292652776) ALYSSA (test code = ALYSSA) Association of [...] tests). Lab Interpretation Abnormal (test code = 24605-6) [facility] Function Panel (ALB, T.PRO, BILI T, BU/BC, ALT, AST, ALK PHOS)2020-01-16 04:59:00 Test Item Value Reference Range Interpretation Comments TOTAL BILI (test code = 5204007375) 1.3 mg/dL 0.1-1.1 H BILI UNCON (test code = 0633068828) 1.1 mg/dL 0.1-1.1 BILI CONJ (test code = 5522653692) 0.0 mg/dL 0-0.3 T PROTEIN (test code = 7825559315) 6.3 g/dL 6.3-8.2 ALBUMIN (test code = 1333515787) 3.9 g/dL 3.5-5 ALK PHOS (test code = 4187718129) 67 U/L 34-122 ALTv (test code = 1742-6) 15 U/L 5-50 AST(SGOT) (test code = 8235581007) 23 U/L 13-40 Lab Interpretation (test code = Abnormal 16949-0) [facility] 1 [id number] 04:54:13Impression: Moderate cardiomegaly without acute pulmonary process. RL: 460 AFC: [id number] Indication: Chest pain Comparison: None available Findings: Single AP view of the chest. The cardiopericardial silhouette ismoderately enlarged. The lungs are clear bilaterally. The visualized bonythorax is intact. A thoracic neurostimulator device is in place. Comb, Radiant Results Inft User - 01/15/2020 10:55 PM CSTIndication: Chest painComparison: None availableFindings: Single AP view of the chest. The cardiopericardial silhouette ismoderately enlarged. The lungs are clear bilaterally. The visualized bonythorax is intact. A thoracic neurostimulator device is in place.IMPRESSIONImpression:Moderate cardiomegaly without acute pulmonary process.RL: 460AFC: [id number] signed by Esperanza Rosado MD, PhD at 01/15/2020 10:54 [facility] WITH [id number] 04:51:00 Test Item Value Reference Range Interpretation [...] RDW-SD (test code = 40.7 fL 38.5-51.6 42082-6) RDW-CV (test code = 12.8 % 12.1-15.4 788-0) PLT (test code = See_Comment L [Automated 777-3) message] The sy stem which generated this result transmitted reference range : 150 - 328 10*3/ ?L. The reference r corey was not used to interpret this result as normal/abnormal . MPV (test code = 10.6 fL 9.8-13 82164-8) IPF % (test code = 2.8 % 1.2-10.7 Platelet count 6918493874) measured by fluorescence method. NRBC/100 WBC (test See_Comment [Automat ed code = 0802174229) message] The system which generated this result transmitted reference range : 0.0 - 10.0 /100 WBCs. The refer ence range was not u sed to interpret th is result as normal/abnormal . NRBC x10^3 (test code <0.01 See_Comment [Auto mated = 7096150285) message] The s ystem which generated this result transmitted reference range : 10*3/?L. The reference range was not used to interpret this result as normal/abnormal . GRAN MAT (NEUT) % 56.0 % (test code = 770-8) IMM GRAN % (test code 0.20 % = 2101642204) LYMPH % (test code = 30.5 % 736-9) MONO % (test code = 9.6 % 5905-5) EOS % (test code = 2.8 % 713-8) BASO % (test code = 0.9 % 706-2) GRAN MAT x10^3(ANC) 2.98 10*3/uL 1.99-6.95 (test code = 6606551047) IMM GRAN x10^3 (test <0.03 0-0.06 code = 9677957495) LYMPH x10^3 (test code 1.62 10*3/uL 1.09-3.23 = 731-0) MONO x10^3 (test code 0.51 10*3/uL 0.36-1.02 = 742-7) EOS x10^3 (test code = 0.15 10*3/uL 0.06-0.53 711-2) BASO x10^3 (test code 0.05 10*3/uL 0.01-0.09 = 704-7) Lab Interpretation Abnormal (test code = 13346-8) [facility]"
[2022-02-25] MEDS ORDERED: MORPHINE 4 MG/ML SYR ONE (22:12)
[2022-02-25] MEDS ORDERED: ONDANSETRON 4 MG/2 ML VIAL ONE (22:13)
[2022-02-25 22:32] LABS: Absolute Lymphocytes (CBC) 1.3 K/uL (0.7-4.9); Hematocrit 38.7 % (39.6-49.0); Lymphocytes % 19.8 % (15.3-44.8); MPV 8.4 fL (7.6-11.3); RBC Red Blood Cell Count 4.16 M/uL (4.33-5.43)
[2022-02-25 22:34] LABS: Protime INR 0.95
[2022-02-25 22:59] LABS: Albumin 3.4 g/dL (3.4-5.0); Bilirubin Direct 0.2 mg/dL (0-0.2); Bilirubin Total 1.1 mg/dL (0.2-1.0); Protein, Total 7.3 g/dL (6.4-8.2)
[2022-02-25 23:01] LABS: Potassium 5.4 mmol/L (3.5-5.1); Troponin High Sensitivity 92.8 pg/mL (<58.9)
[2022-02-26] MEDS ORDERED: MORPHINE 4 MG/ML SYR ONE (02:27)
[2022-02-26] MEDS ORDERED: ASPIRIN 81 MG CHEWABLE TABLET ONE (02:27)
--- NOTE | 2022-02-26 02:27 | ER ---
Nurse's Notes [facility] Name: Demetrius Sarmiento Age: 81 yrs Sex: Male : 1940 Arrival Date: 02/25/2022 Time: 20:04 Bed 15 Private MD: Diagnosis: Chest pain, unspecified;Sciatica Presentation: 02/25 21:14 Chief complaint: Patient states: he is having left sided back pain radiating down his bb left leg starting today but has had it in the past also has "ringing in his head". Coronavirus screen: At this time, the client does not indicate any symptoms associated with coronavirus-19. Ebola Screen: No symptoms or risks identified at this time. Initial Sepsis Screen: Does the patient meet any 2 criteria? No. Patient's initial sepsis screen is negative. Does the patient have a suspected source of infection? No. Patient's initial sepsis screen is negative. Risk Assessment: Do you want to hurt yourself or someone else? Patient reports no desire to harm self or others. Onset of symptoms was February 25, 2022. 21:14 Method Of Arrival: Wheelchair bb 21:14 Acuity: LANCE 3 bb 21:18 Note Shukri Martinez TIN WORKER in triage for pt evaluation. bb Triage Assessment: 21:16 General: Appears uncomfortable, Behavior is cooperative, anxious. Pain: Complains of bb pain in back Pain currently is 7 out of 10 on a pain scale. Neuro: Level of Consciousness is awake, alert, obeys commands, Oriented to person, place, situation. Cardiovascular: Patient's skin is warm and dry. Respiratory: Respiratory effort is even, unlabored. Derm: Skin is pink, warm \\T\\ dry. Musculoskeletal: Circulation, motion, and sensation intact. Reports pain in back radiating to his leg. Historical: - Allergies: 21:16 No Known Allergies; bb - Home Meds: 21:16 aspirin 81 mg Oral TbEC 1 tab once daily [Active]; atorvastatin 40 mg Oral tab 1 tab bb nightly [Active]; clopidogrel 75 mg Oral tab 1 tab once daily [Active]; donepezil 5 mg Oral tab 1 tab nightly [Active]; furosemide 20 mg Oral tab 1 tab once daily [Active]; isosorbide mononitrate 120 mg Oral Tb24 1 tab once daily [Active]; Januvia 50 mg Oral tab 1 tab once daily [Active]; potassium chloride 10 mEq Oral TbER 1 tab once daily [Active]; - PMHx: 21:16 CAD; cardiac arrest; CHF; chronic kidney disease; Chronic pain; Diabetes - IDDM; High bb Cholesterol; Hypertension; Myocardial infarction; - PSHx: 21:16 4 heart stents; bb - Immunization history:: Client reports receiving the 2nd dose of the Covid vaccine, Moderna. - Social history:: Smoking status: Patient denies any tobacco usage or history of. Screenin/13 09:40 Abuse screen: Denies threats or abuse. Denies injuries from another. Nutritional jg9 screening: No deficits noted. Tuberculosis screening: No symptoms or risk factors identified. Fall Risk None identified. Vital Signs: 02/25 21:14 BP 131 / 77; Pulse 101; Resp 16 S; Temp 98.6(O); Pulse Ox 98% on R/A; Weight 77.11 kg bb (R); Height 5 ft. 8 in. (172.72 cm) (R); Pain 7/10; 02/26 01:17 BP 141 / 91; Pulse 98; Resp 18; Temp 98.5(O); Pulse Ox 98% on R/A; sm5 02/25 21:14 Body Mass Index 25.85 (77.11 kg, 172.72 cm) bb ED Course: 02/25 20:04 Patient arrived in ED. bp1 21:16 Triage completed. bb 21:16 Arm band placed on Patient placed in waiting room, Patient notified of wait time. bb 21:21 Shukri Martinez NP is PHCP. pm1 21:21 Brett Lema MD is Attending Physician. pm1 22:25 Initial lab(s) drawn, by me, sent to lab. Missed attempt(s): 20 gauge in right forearm. bb Bleeding controlled, band aid applied, catheter tip intact. 22:38 XRAY Chest (1 view) In Process Unspecified. EDMS 22:38 Lumbar Spine (3 Views) XRAY In Process Unspecified. EDMS 02/26 00:21 Inserted saline lock: 22 gauge in right antecubital area, using aseptic technique. bb 01:04 Vanessa Batres RN is Primary Nurse. [facility] 01:20 Bed in low position. Call light in reach. Side rails up X2. Pillow given. Head of bed wm elevated. numerical tool programmer on. Pulse ox on. NIBP on. 02:25 Tom Newman MD is Hospitalizing Provider. [facility] 07:25 Primary Nurse role handed off by Vanessa Batres RN 09:26 COVID-19 SARS RT PCR (Document "Date of Onset" if Symptomatic) Sent. jg9 09:40 No provider procedures requiring assistance completed. jg9 09:41 Patient admitted, IV remains in place. jg9 Administered Medications: 00:21 Drug: morphine 4 mg {Note: RASS 0.} Route: IVP; Site: right antecubital; 09:40 Follow up: Response: No adverse reaction j9 00:21 Drug: Zofran (Ondansetron) 4 mg Route: IVP; Site: right antecubital; 09:39 Follow up: Response: No adverse reaction j9 02:27 Drug: Aspirin Chewable Tablet 324 mg Route: PO; 5 09:39 Follow up: Response: No adverse reaction j9 02:27 Drug: morphine 4 mg Route: IVP; Site: right antecubital; 5 09:39 Follow up: Response: No adverse reaction j9 02:40 Drug: traMADol 50 mg Route: PO; [facility] 09:39 Follow up: Response: No adverse reaction j9 Outcome: 02:26 Decision to Hospitalize by Provider. [facility] 09:40 Condition: stable jg9 09:40 Admitted to ER Hold. Please see [facility] for further documentation. jg9 20:20 Patient left the ED. sm5 Signatures: Dispatcher [employer] EDMS Eli Valdez Brenda, RN RN bb Shukri Martinez, TIN WORKER TIN WORKER pm1 Adrienne De La Fuente [facility] Brett Lema MD MD mh7 Marsh, Wendy Vanessa Batres, HERBIE STONER 5 Halle Bower RN RN jg9
--- NOTE | 2022-02-26 02:27 | EDPHYS ---
Physician Documentation [facility] Name: Demetrius Sarmiento Age: 81 yrs Sex: Male : 1940 Arrival Date: 02/25/2022 Time: 20:04 Bed 15 Private MD: ED Physician Brett Lema HPI: 02/25 21:23 This 81 yrs old Male presents to ER via Wheelchair with complaints of Hip Pain. pm1 21:23 The patient or guardian reports pain. that occurred at home, sustained from unknown pm1 reason, The patient is able to self ambulate. The patient is able to bear their full body weight. The patient's discomfort radiates to the left quadriceps. The complaints affect the left hip. Onset: The symptoms/episode began/occurred today, Has had this pain on and off for the past 4 months. Modifying factors: The symptoms are alleviated by nothing, the symptoms are aggravated by nothing. Associated signs and symptoms: Pertinent positives: Chest pain onset while waiting in the ER. Severity of symptoms: in the emergency department the symptoms are actually worse. The patient has experienced similar episodes in the past, multiple times. The patient has not recently seen a physician. Historical: - Allergies: 21:16 No Known Allergies; bb - Home Meds: 21:16 aspirin 81 mg Oral TbEC 1 tab once daily [Active]; atorvastatin 40 mg Oral tab 1 tab bb nightly [Active]; clopidogrel 75 mg Oral tab 1 tab once daily [Active]; donepezil 5 mg Oral tab 1 tab nightly [Active]; furosemide 20 mg Oral tab 1 tab once daily [Active]; isosorbide mononitrate 120 mg Oral Tb24 1 tab once daily [Active]; Januvia 50 mg Oral tab 1 tab once daily [Active]; potassium chloride 10 mEq Oral TbER 1 tab once daily [Active]; - PMHx: 21:16 CAD; cardiac arrest; CHF; chronic kidney disease; Chronic pain; Diabetes - IDDM; High bb Cholesterol; Hypertension; Myocardial infarction; - PSHx: 21:16 4 heart stents; bb - Immunization history:: Client reports receiving the 2nd dose of the Covid vaccine, Moderna. - Social history:: Smoking status: Patient denies any tobacco usage or history of. ROS: 21:23 Constitutional: Negative for fever, chills, and weight loss. pm1 21:23 Respiratory: Negative for shortness of breath, cough, wheezing, and pleuritic chest pain, Abdomen/GI: Negative for abdominal pain, nausea, vomiting, diarrhea, and constipation, Back: Negative for injury and pain. 21:23 Skin: Negative for injury, rash, and discoloration, Neuro: Negative for headache, weakness, numbness, tingling, and seizure. 21:23 Cardiovascular: Positive for chest pain. 21:23 MS/extremity: Positive for Left hip pain with radiation to left thigh, Negative for injury or acute deformity, decreased range of motion, deformity. 21:23 All other systems are negative. Exam: 21:23 Constitutional: This is a well developed, well nourished patient who is awake, alert, pm1 and in no acute distress. Head/Face: Normocephalic, atraumatic. 21:23 Skin: Warm, dry with normal turgor. Normal color with no rashes, no lesions, and no evidence of cellulitis. 21:23 Cardiovascular: Exam negative for acute changes, Rate: normal, Rhythm: regular, Pulses: no pulse deficits are appreciated. 21:23 Respiratory: Exam negative for acute changes, respiratory distress, shortness of breath, Breath sounds: are clear throughout. 21:23 Abdomen/GI: Exam negative for acute changes, Inspection: abdomen appears normal, Palpation: abdomen is soft and non-tender, in all quadrants. 21:23 Back: vertebral tenderness, is not appreciated. 21:23 Musculoskeletal/extremity: Extremities: grossly normal except: noted in the left gluteus jeanette: tenderness, There is no evidence of decreased ROM, deformity. 21:23 Neuro: Exam negative for acute changes, Orientation: is normal, Mentation: is normal, Motor: is normal, moves all fours. Vital Signs: 21:14 BP 131 / 77; Pulse 101; Resp 16 S; Temp 98.6(O); Pulse Ox 98% on R/A; Weight 77.11 kg bb (R); Height 5 ft. 8 in. (172.72 cm) (R); Pain 05/25; 02/26 01:17 BP 141 / 91; Pulse 98; Resp 18; Temp 98.5(O); Pulse Ox 98% on R/A; sm5 02/25 21:14 Body Mass Index 25.85 (77.11 kg, 172.72 cm) bb MDM: 02/25 21:24 Patient medically screened. pm1 02/26 01:34 Data reviewed: vital signs. Data interpreted: Pulse oximetry: on room air is 98 %. pm1 Interpretation: normal. 02:23 Differential diagnosis: arthritis, strain, Sciatica, chest pain, MS. [facility] 02:24 Counseling: I had a detailed discussion with the patient and/or guardian regarding: the [facility] historical points, exam findings, and any diagnostic results supporting the discharge/admit diagnosis, the presence of at least one elevated blood pressure reading (>120/80) during this emergency department visit, lab results, radiology results, the need for further work-up and treatment in the hospital. Response to treatment: the patient's symptoms have mildly improved after treatment. 02/25 21:23 Order name: Basic Metabolic Panel; Complete Time: 23:08 pm1 02/25 21:23 Order name: CBC with Diff; Complete Time: 22:58 pm1 02/25 21:23 Order name: LFT's; Complete Time: 23:08 pm1 02/25 21:23 Order name: Magnesium; Complete Time: 23:08 pm1 02/25 21:23 Order name: NT PRO-BNP; Complete Time: 23:08 pm1 02/25 21:23 Order name: PT-INR; Complete Time: 22:58 pm1 02/25 21:23 Order name: Troponin HS; Complete Time: 23:08 pm1 02/26 03:40 Order name: COVID-19 SARS RT PCR (Document "Date of Onset" if Symptomatic) [facility] 02/26 05:14 Order name: SARS-COV-2 RT PCR [facility] 02/26 06:04 Order name: Troponin High Sensitivity [facility] 02/26 08:10 Order name: Glucose, Ancillary Testing [facility] 02/26 12:03 Order name: Glucose, Ancillary Testing [facility] 02/26 12:48 Order name: Troponin High Sensitivity [facility] 02/26 17:57 Order name: Glucose, Ancillary Testing [facility] 02/25 21:23 Order name: XRAY Chest (1 view) pm1 02/25 21:23 Order name: EKG; Complete Time: 21:23 pm1 02/25 21:23 Order name: Cardiac monitoring; Complete Time: 01:13 pm1 02/25 21:23 Order name: EKG - Nurse/Tech; Complete Time: 22:06 pm1 02/25 21:23 Order name: IV Saline Lock; Complete Time: 00:21 pm1 02/25 21:23 Order name: Labs collected and sent; Complete Time: 22:25 pm1 02/25 21:23 Order name: O2 Per Protocol; Complete Time: 01:13 pm1 02/25 21:23 Order name: O2 Sat Monitoring; Complete Time: 01:13 pm1 02/25 21:23 Order name: Lumbar Spine (3 Views) XRAY pm1 Administered Medications: 00:21 Drug: morphine 4 mg {Note: RASS 0.} Route: IVP; Site: right antecubital; bb 09:40 Follow up: Response: No adverse reaction jg9 00:21 Drug: Zofran (Ondansetron) 4 mg Route: IVP; Site: right antecubital; bb 09:39 Follow up: Response: No adverse reaction jg9 02:27 Drug: Aspirin Chewable Tablet 324 mg Route: PO; sm5 09:39 Follow up: Response: No adverse reaction jg9 02:27 Drug: morphine 4 mg Route: IVP; Site: right antecubital; sm5 09:39 Follow up: Response: No adverse reaction jg9 02:40 Drug: traMADol 50 mg Route: PO; sm5 09:39 Follow up: Response: No adverse reaction jg9 Disposition Summary: 02/26/22 02:26 Hospitalization Ordered Hospitalization Status: Inpatient Admission [facility] Provider: Tom Newman Demarcus Condition: Stable [facility] Problem: new [facility] Symptoms: have improved mh7 Bed/Room Type: Standard [facility] Location: Intensive Care Unit(02/26/22 17:29) bd Room Assignment: 7-(02/26/22 17:29) bd Diagnosis - Chest pain, unspecified mh7 - Sciatica [facility] Forms: - Medication Reconciliation Form 7 - SBAR form 7 Addendum: 03/14/2022 06:08 Co-signature as Attending Physician, Brett madsen Signatures: Dispatcher [employer] EDEli Guzman Martha RN RN Regina Landa RN RN bb Shukri Martinez, MECHE SPORTS DOCTOR pm1 Brett Lema MD MD mh7 Vanessa Batres RN RN sm5 Halle Bower RN jg9 Corrections: (The following items were deleted from the chart) 02/26 03:37 02:26 Telemetry/MedSurg (Inpatient) mh7 mw 03:37 02:26 mh7 mw 03:38 03:37 [facility] ER HOLD mw mw 03:38 03:37 ERHOLD- mw mw 03:40 03:38 Telemetry/MedSurg (Inpatient) mw mw 03:40 03:38 mw mw 17:29 03:40 [facility] ER HOLD mw bd 17:29 03:40 ERHOLD- mw bd
[2022-02-26] MEDS ORDERED: TRAMADOL HCL 50 MG TAB ONE ×3 (02:41→17:45)
--- NOTE | 2022-02-26 03:08 | P.HP ---
Certification for Inpatient Patient admitted to: Observation With expected LOS: <2 Midnights Patient will require the following post-hospital care: None Practitioner: I am a practitioner with admitting privileges, knowledge of patient current condition, hospital course, and medical plan of care. Services: Services provided to patient in accordance with Admission requirements found in Title 42 Section 412.3 of the Code of Federal Regulations Patient History Date of Service: 02/26/22 Reason for admission: Chest pain, back pain History of Present Illness: 81-year-old male with history of CAD, CKD 3, chronic diastolic congestive heart failure, diabetes type 2insulin-dependent, hypertension, hyperlipidemia and dementia presents the emergency department for low back pain radiating down the left leg. While patient was in the emergency department he also began complaining of chest pain, patient received a cardiac work-up while he is in the emergency department his EKG was without acute changes, his troponin was moderately elevated at 92.8 high-sensitivity. Potassium also mildly elevated 5.4 but there was hemolysis present. Patient reports that his chest is feeling better although he still having the back pain radiating down his left leg. Patient was seen here and had a heart catheterization on 12/02/2021 which was significant for severe mid LAD in-stent restenosis with heavy calcium load, severe proximal RCA in-stent stenosis with heavy calcium load. At that time it was recommended the patient receive shockwave lithotripsy and balloon angioplasty which we are unable to perform at our facility. At that time patient symptoms had improved he was discharged to have this performed on outpatient basis but was readmitted at a later date and then transferred to his commercial director Dr. Costello at [facility], the patient is a very poor historian is unable to tell me exactly what happened but reports that he did not have a heart catheterization he thinks that they obtained a special CT scan to evaluate his heart, Dr. Costello recommended no further interventions at that time. Will need to admit given his significant CAD history, mild troponin elevation to trend troponins and consult with cardiology. Allergies No Known Allergies Allergy (Verified 03/10/20 01:08) Home Medications: Atorvastatin Calcium 1 tab PO BEDTIME 03/10/20 Donepezil HCl [Aricept] 5 mg PO BEDTIME 03/17/20 Furosemide [Lasix*] 20 mg PO DAILY 03/17/20 Isosorbide Mononitrate [Isosorbide Mononitrate ER] 120 tab PO DAILY 09/24/20 Potassium Chloride [Klor-Con 10] 10 meq PO DAILY 11/30/21 Trazodone [Desyrel*] 50 mg PO BEDTIME PRN 11/30/21 Vitamin B Complex [B Complex] 1 each PO DAILY 11/30/21 Multivitamin with Minerals [One Daily Plus Minerals] 1 each PO DAILY 12/18/21 Sitagliptin Phosphate [Januvia] 50 mg PO DAILY 12/18/21 dexAMETHasone [Dexamethasone] 2 mg PO BID 01/22/22 Cyclobenzaprine HCl [Flexeril] 5 mg PO TID PRN #30 01/23/22 Hydrocodone 5/APAP 325 [[place] 5/325*] 1 tab PO Q6H PRN #30 tab 01/23/22 Lidocaine 4% Patch [Lidoderm 5% Patch*] 1 patch TOP DAILY #30 patch 01/23/22 - Past Medical/Surgical History Diabetic: Yes -: Chronic diastolic congestive heart failure -: HTN -: DM IDDM -: Heart Stents -: Solitary kidney -: CKD 3 -: CAD -: stents -: heart cath. Psychosocial/ Personal History: Patient is , lives at home alone - Family History Father -: Heart disease Notes: [place] - Social History Smoking Status: Unknown if ever smoked Alcohol use: No CD- Drugs: No Caffeine use: No Place of Residence: Home Review of Systems 10-point ROS is otherwise unremarkable Cardiovascular: Chest Pain Musculoskeletal: Back Pain Physical Examination - Physical Exam General: Alert, In no apparent distress, Oriented x3 HEENT: Atraumatic, PERRLA, Mucous membr. moist/pink, EOMI, Sclerae nonicteric Neck: Supple, 2+ carotid pulse no bruit, No LAD, Without JVD or thyroid abnormality Respiratory: Clear to auscultation bilaterally, Normal air movement Cardiovascular: Regular rate/rhythm, Normal S1 S2 Gastrointestinal: Normal bowel sounds, No tenderness Musculoskeletal: No tenderness Integumentary: No rashes Neurological: Normal gait, Normal speech, Normal strength at 5/5 x4 extr, Normal tone, Normal affect Lymphatics: No axilla or inguinal lymphadenopathy - Studies Laboratory Data (last 24 hrs) 02/25/22 22:20: PT 10.4, INR 0.95 02/25/22 22:20: WBC 6.5, Hgb 13.2 L, Hct 38.7 L, Plt Count 174 02/25/22 22:20: Sodium 137, Potassium 5.4 H, BUN 15, Creatinine 1.33 H, Glucose 247 H, Magnesium 2.0, Total Bilirubin 1.1 H, AST 49 H, ALT 23, Alkaline Phosphatase 64 Assessment and Plan - Plan Assessment: Chest pain rule out ACS history CAD Diabetes mellitus type 2insulin-dependent with hyperglycemia CKD 3 Chronic diastolic congestive heart failure Hypertension Hyperlipidemia Dementia Plan: Chest pain rule out ACS history CAD: Trend troponins, monitor on telemetry, cardiology consulted, continue home medications, aspirin, statin.. As needed medication for chest pain nitro/morphine. Diabetes mellitus type 2insulin-dependent with hyperglycemia: [facility] Accu-Chek, sliding scale insulin CKD 3: Stable, continue medications monitor renal function. Chronic diastolic congestive heart failure: Stable continue home medications Hypertension: Continue home meds Hyperlipidemia:Continue home meds Dementia:Continue home meds DVT PPX: Lovenox Code status: Full Discharge Plan: Home Plan to discharge in: 24 Hours - Advance Directives Does patient have a Living Will: No Does patient have a Durable POA for Healthcare: No - Code Status/Comfort Care Code Status Assessed: Yes (Full code) Critical Care: No Time Spent Managing Pts Care (In Minutes): 55
[2022-02-26] MEDS ORDERED: NITROGLYCERIN 0.4 MG/TAB SL PRN (05:01)
[2022-02-26] MEDS ORDERED: ONDANSETRON 4 MG/2 ML VIAL IV PRN (05:01)
[2022-02-26] MEDS: INSULIN -REGULAR HUMAN 50 UNIT/0.5 ML ML SQ SCH ×4 (07:30→21:30)
[2022-02-26] MEDS ORDERED: MORPHINE 2 MG/ML SYR ONE ×2 (08:19→15:54)
[2022-02-26] MEDS: MORPHINE 2 MG/ML SYR IV PRN ×2 (08:20→21:33)
[2022-02-26] MEDS: ENOXAPARIN 40 MG/0.4 ML SQ SCH (09:00)
[2022-02-26] MEDS: ISOSORBIDE MONO SR 60 MG TAB PO SCH (09:00)
[2022-02-26] MEDS: ASPIRIN EC 81 MG TAB PO SCH (09:00)
[2022-02-26] MEDS ORDERED: ASPIRIN EC 81 MG TAB PO ONE (09:50)
[2022-02-26] MEDS ORDERED: ENOXAPARIN 40 MG/0.4 ML SQ ONE (09:50)
[2022-02-26] MEDS: TRAMADOL HCL 50 MG TAB PO PRN ×2 (10:30→17:54)
--- NOTE | 2022-02-26 10:58 | EKG ---
Test Date: 2022-02-25 Test Time: 22:02:24 R And D Lab Technician: JARROD MEASUREMENT RESULTS: Intervals: Rate: 99 NH: 172 QRSD: 142 QT: 396 QTc: 508 [place]: P: 47 NH: 172 QRS: -77 T: 98 INTERPRETIVE STATEMENTS: Normal sinus rhythm Left axis deviation Right bundle branch block T wave abnormality, consider lateral ischemia Abnormal ECG Compared to ECG 01/16/2022 14:09:30 Right bundle-branch block now present Ventricular premature complex(es) no longer present Left ventricular hypertrophy no longer present Prolonged QT interval no longer present T-wave abnormality still present Possible ischemia still present Electronically Signed On 02-26-22 10:57:12 CDT by Gibson Davidson
--- NOTE | 2022-02-26 11:04 | ECHO ---
HEIGHT: 5 ft 8 in WEIGHT: 170 lb 0 oz DATE OF STUDY: 02/26/[address]: Gibson Davidson MD 2-DIMENSIONAL: YES M.MODE: YES DOPPLER: YES COLOR FLOW: YES TDS: PORTABLE: YES DEFINITY: BUBBLE STUDY: DIAGNOSIS: CHEST PAIN CARDIAC HISTORY: CATHERIZATION: YES SURGERY: NO PROSTHETIC VALVE: NO PACEMAKER: NO MEASUREMENTS (cm) DIASTOLIC (NORMALS) SYSTOLIC (NORMALS) IVSd 1.2 (0.6-1.2) LA Diam 2.9 (1.9-4.0) LVEF 29% LVIDd 3.9 (3.5-5.7) LVIDs 3.4 (2.0-3.5) %FS 13% LVPWd 1.1 (0.6-1.2) Ao Diam 2.9 (2.0-3.7) 2 DIMENSIONAL ASSESSMENT: RIGHT ATRIUM: NORMAL LEFT ATRIUM: NORMAL RIGHT VENTRICLE: NORMAL LEFT VENTRICLE: NORMAL SIZE TRICUSPID VALVE: NORMAL MITRAL VALVE: NORMAL PULMONIC VALVE: NORMAL AORTIC VALVE: NORMAL PERICARDIAL EFFUSION: NONE AORTIC ROOT: NORMAL LEFT VENTRICULAR WALL MOTION: SEVERE GLOBAL HYPOKINESIS DOPPLER/COLOR FLOW: NORMAL COMMENTS: SEVERE GLOBAL HYPOKINESIS. EJECTIONF FRACTION 29%. NO EFFUSION. TECHNOLOGIST: JACINTO AGUILAR
[2022-02-26] MEDS ORDERED: INSULIN -REGULAR HUMAN 50 UNIT/0.5 ML ML ONE (12:05)
--- NOTE | 2022-02-26 13:07 | RAD REPORT ---
EXAM DESCRIPTION: RAD - Chest Single View - 02/25/2022 10:36 pm CLINICAL HISTORY: 81 years, Male, CHEST PAIN COMPARISON: None. FINDINGS: Single view of the chest was obtained portable. No prior films are available for compariso n. The cardiomediastinal silhouette demonstrate to be unremarkable. The heart is not enlarged. The thoracic aorta is mildly tortuous with intimal calcification. Costophrenic angles are sharp. No are as of consolidation or masses are seen. There is a epidural neurostimulator stimulator lower thoracic spine. The rest of the soft tissue and bony structures demonstrate to be unremarkable. IMPRESSION: No acute cardiopulmonary disease is seen. Electronically signed by: Ashu Mayfield MD 02/25/2022 11:26 PM CDT Due to temporary technical issues with the PACS/Fluency reporting system, reports are being signed by the in house radiologist without review as a courtesy to ensure prompt reporting. The interpreting r adiologist is fully responsible for the content of the report
--- NOTE | 2022-02-26 13:24 | RAD REPORT ---
EXAM DESCRIPTION: RAD - Lumbar Spine 3 Views - 02/25/2022 10:37 pm CLINICAL HISTORY: 81 years, Male, RADICULOPATHY COMPARISON: None FINDINGS: Three X-ray views of the Lumbar spine (frontal, lateral and coned-down views) were perform ed. There is mild diffuse bony osteopenia. There is degenerative disc disease at T12/L1. There is a epidu ral neurostimulator within the lower thoracic spine. There is posterior transpedicular screw fixation device at L3-L5 with laminectomy at L4-S1 and intervertebral disc cage fixation device at L4/L5. The re is atherosclerotic disease of the aorta and iliac arteries The adjacent soft tissues are unremarka ble. There is no evidence for fracture or subluxation. There is no evidence for spondylolisthesis . There is posterior facet hypertrophy lower lumbar spine. There are degenerative changes bilateral h ip joint. Vascular opacification femoral vessels. IMPRESSION: Status post posterior transpedicular screw fixation device at L3-L5 with laminectomy at L4-L5 and intervertebral disc cage fixation device at L4/L5. Electronically signed by: Ashu Mayfield MD 02/25/2022 11:27 PM CDT Due to temporary technical issues with the PACS/Fluency reporting system, reports are being signed by the in house radiologist without review as a courtesy to ensure prompt reporting. The interpreting r adiologist is fully responsible for the content of the report
[2022-02-26] MEDS ORDERED: ATORVASTATIN 40 MG TAB PO SCH (21:00)
[2022-02-26 22:58] VITALS: BMI 25.3
[2022-02-27 01:01] VITALS: O2SAT 96
[2022-02-27] MEDS: TRAMADOL HCL 50 MG TAB PO PRN ×2 (04:02→10:59)
[2022-02-27 05:12] LABS: Absolute Lymphocytes (CBC) 1.5 K/uL (0.7-4.9); Hematocrit 35.7 % (39.6-49.0); Lymphocytes % 22.4 % (15.3-44.8); MPV 7.8 fL (7.6-11.3); RBC Red Blood Cell Count 3.85 M/uL (4.33-5.43)
[2022-02-27 05:28] LABS: Albumin 3.1 g/dL (3.4-5.0); Bilirubin Total 1.1 mg/dL (0.2-1.0); Protein, Total 6.4 g/dL (6.4-8.2)
--- NOTE | 2022-02-27 07:13 | P.CNS ---
Date of Consult: 02/26/22 Reason for Consult: hyperkalemia and elevated creatinine Chief Complaint: Chest pain, back pain History of Present Illness: 81 yr old male with CAD, CKD 3, chronic diastolic congestive heart failure, diabetes type 2insulin-dependent, hypertension, hyperlipidemia and dementia admitted for chest pain , hx of significant CAD -noted with elevated cr to 1.33 and k at 5.4 + hx on lasix and kcl at home -pt reports high urine frequency with nocturia up to 4x/pm Renal following for azotemia Allergies No Known Allergies Allergy (Verified 03/10/20 01:08) Home Medications: Donepezil HCl [Aricept] 5 mg PO BEDTIME 03/17/20 Furosemide [Lasix*] 20 mg PO DAILY 03/17/20 Isosorbide Mononitrate [Isosorbide Mononitrate ER] 120 tab PO DAILY 09/24/20 Potassium Chloride [Klor-Con 10] 10 meq PO DAILY 11/30/21 Trazodone [Desyrel*] 50 mg PO BEDTIME PRN 11/30/21 Vitamin B Complex [B Complex] 1 each PO DAILY 11/30/21 Multivitamin with Minerals [One Daily Plus Minerals] 1 each PO DAILY 12/18/21 Sitagliptin Phosphate [Januvia] 50 mg PO DAILY 12/18/21 dexAMETHasone [Dexamethasone] 2 mg PO BID 01/22/22 Cyclobenzaprine HCl [Flexeril] 5 mg PO TID PRN #30 01/23/22 Hydrocodone 5/APAP 325 [[place] 5/325*] 1 tab PO Q6H PRN #30 tab 01/23/22 Lidocaine 4% Patch [Lidoderm 5% Patch*] 1 patch TOP DAILY #30 patch 01/23/22 Aspirin [[place]] 1 tab PO DAILY 02/26/22 Atorvastatin Calcium [Lipitor] 1 tab PO DAILY 02/26/22 Clopidogrel Bisulfate [Plavix*] 1 tab PO DAILY 02/26/22 - Past Medical/Surgical History Diabetic: Yes -: Chronic diastolic congestive heart failure -: HTN -: DM IDDM -: Heart Stents -: Solitary kidney -: CKD 3 -: CAD -: stents -: heart cath. Psychosocial/ Personal History: Patient is , lives at home alone - Family History Father Medical History: Heart disease Notes: [place] - Social History Smoking Status: Former smoker Alcohol use: No CD- Drugs: No Caffeine use: No Place of Residence: Home Review of Systems 10-point ROS is otherwise unremarkable Physical Examination Temp Pulse Resp BP Pulse Ox 97.8 F 89 13 150/87 H 99 02/27/22 04:00 02/27/22 04:00 02/27/22 04:00 02/27/22 04:00 02/27/22 00:00 - Problems (1) Acute kidney injury Current Visit: No Status: Acute (2) Chest pain, rule out acute myocardial infarction Current Visit: No Status: Acute (3) Hyperglycemia due to type 2 diabetes mellitus Current Visit: No Status: Acute Qualifiers: 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 Qualified Code(s): E11.65 - Type 2 diabetes mellitus with hyperglycemia; Z79.4 - 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 moist/pink, EOMI, Sclerae nonicteric Neck: Supple, 2+ carotid pulse no bruit, No LAD, Without JVD or thyroid abnormality Respiratory: Clear to auscultation bilaterally, Normal air movement Cardiovascular: Regular rate/rhythm, Normal S1 S2 Gastrointestinal: Normal bowel sounds, No tenderness Musculoskeletal: No tenderness Integumentary: No rashes Neurological: Normal gait, Normal speech, Normal strength at 5/5 x4 extr, Normal tone, Normal affect Lymphatics: No axilla or inguinal lymphadenopathy Impression Hyperkalemia- borderline , due to k supplementation ARF -may be due to diuretics use /pre-renal CAD r/o ACS HTN Dementia PLAN -will monitor k for now -hold kcl use - gentle IVF with NS - hold lasix -expected improvement in creatinine renal sonogram in am for LUTS -if still azotemia in am , will do further workup of ARF Time Spent Managing Pts care (In Minutes): 65
--- NOTE | 2022-02-27 07:17 | P.PN ---
Subjective Date of Service: 02/27/22 Chief Complaint: Chest pain, back pain Subjective: No new changes, No C/O voiced Physical Examination - Vital Signs Temperature: 97.8 F Blood Pressure: 150/87 Pulse: 89 Respirations: 13 Pulse Ox (%): 99 Assessment And Plan - Current Problems (Diagnosis) (1) Acute kidney injury Current Visit: No Status: Acute (2) Chest pain, rule out acute myocardial infarction Current Visit: No Status: Acute (3) Hyperglycemia due to type 2 diabetes mellitus Current Visit: No Status: Acute Qualifiers: Diabetes mellitus fci insulin use: with intermediate teacher use Qualified Code(s): E11.65 - Type 2 diabetes mellitus with hyperglycemia; Z79.4 - retirement (current) use of insulin (4) CHF (congestive heart failure) Current Visit: No Status: Chronic Qualifiers: Heart failure type: unspecified Heart failure chronicity: chronic Qualified Code(s): I50.9 - Heart failure, unspecified (5) Chronic kidney disease, stage 3 Current Visit: No Status: Chronic Qualifiers: Chronic kidney disease stage 3 subtype: stage 3a (GFR 45-59) Qualified Code(s): N18.31 - Chronic kidney disease, stage 3a Physician Review: Patient Assessed, Agree with Above Assessment and Plan Physician Review Additional Text: 02/27/22 07:17 - Physical Exam General: Awake, In no apparent distress, Oriented x3 HEENT: Atraumatic, PERRLA, Mucous membr. moist/pink, EOMI, Sclerae nonicteric Neck: Supple, 2+ carotid pulse no bruit, No LAD, Without JVD or thyroid abnormality Respiratory: Clear to auscultation bilaterally, Normal air movement Cardiovascular: Regular rate/rhythm, Normal S1 S2 Gastrointestinal: Normal bowel sounds, No tenderness Musculoskeletal: No tenderness Integumentary: No rashes Neurological: Normal gait, Normal speech, Normal strength at 5/5 x4 extr, Normal tone, Normal affect Lymphatics: No axilla or inguinal lymphadenopathy Impression Hyperkalemia- borderline , due to k supplementation ARF -may be due to diuretics use /pre-renal CAD r/o ACS HTN Dementia LUTS PLAN -cr improving to 1.1 - potassium controlled - if needed for BP and cad , can start ACEI but defered to cardiology -c/w to hold lasix follow renal sonogram for LUTS if plan for cardiac cath , will start renal prophylaxis
[2022-02-27] MEDS: INSULIN -REGULAR HUMAN 50 UNIT/0.5 ML ML SQ SCH ×2 (07:30→11:30)
[2022-02-27] MEDS: ENOXAPARIN 40 MG/0.4 ML SQ SCH (08:33)
[2022-02-27] MEDS: ASPIRIN EC 81 MG TAB PO SCH (08:33)
--- NOTE | 2022-02-27 08:46 | P.PN ---
Subjective Date of Service: 02/27/22 Chief Complaint: Chest pain, back pain Physical Examination - Vital Signs Temperature: 97.8 F Blood Pressure: 150/87 Pulse: 89 Respirations: 13 Pulse Ox (%): 99 Assessment And Plan Physician Review: Patient Assessed, Agree with Above Assessment and Plan
--- NOTE | 2022-02-27 09:20 | CON ---
Date of Consultation: 02/26/2022 Reason For Consultation: Elevated troponin. History Of Present Illness: Mr. Sarmiento is 81. He is known to us from previous medical visits in the office and the hospital. He has chronic rather very complicated coronary artery disease with in-tip nt restenoses of the LAD and the RCA, was followed by Dr. Baldwin and Dr. Costello and he was considered inoperable after his last visit to [facility] according to him. He has a known chronic systo lic ejection fraction with 44% with systolic congestive heart failure. He also has a history of diab etes, dementia. He came back with hip pain. No chest pain. Creatinine is 1.33. Troponin was 125. Again, he is not having any cardiac symptoms. Allergies: NONE. Past Medical History: As stated above. Review of Systems: Negative. Social History: Negative. Family History: Negative. Medications: At home include aspirin, Lipitor, Plavix, Lasix, donepezil, Imdur, Januvia, and potassi um. Physical Examination: Vital Signs: Stable. He is afebrile. HEENT: Negative. Neck: Supple with no bruit. Chest: Clear. Cardiac: Revealed a regular rhythm and rate. No murmurs, gallops, or rubs. Abdomen: Benign. Extremities: Revealed no clubbing, cyanosis, or edema. Diagnostic Data: As stated earlier. Chest x-ray is negative. Impression And Plan: Chronic systolic congestive heart failure with ejection fraction of 44%. Echoc ardiogram today showed an ejection fraction of 29%. The patient is on aspirin, Lasix, Imdur, Plavix, potassium. I think he needs to be on a low-dose beta-raven. Also consider low-dose ROBBY inhibitor . He is not in congestive heart failure right now, but I think these medication would be indicated. He has complicated past coronary history and is followed by Dr. Costello. He will follow up with him i n the near future. His other problems include dyslipidemia, diabetes, renal insufficiency, dementia, all of those are stable. His main problem now is noncardiac, is hip pain. I think orthopedic surge ry consultation may be reasonable. His troponin elevation is secondary to congestive heart failure a nd chronic coronary artery disease. No need for any cardiac intervention at this point. HARSHAD/MODL Voice ID: [id number] Report ID: [id number]
--- NOTE | 2022-02-27 09:28 | RAD REPORT ---
EXAM DESCRIPTION: US - Urinary Bladder - 02/27/2022 9:16 am CLINICAL HISTORY: PVR COMPARISON: Renal Ultrasound-Complete dated 02/27/2022 FINDINGS: No urinary bladder wall thickening or mass identifiable. No stone or other intraluminal ab normality seen. Urinary bladder volume was 223 milliliters. No postvoid imaging was performed. When asked to void for the examination, the patient said he was unable at the time of the examination.
[2022-02-27] MEDS: ISOSORBIDE MONO SR 60 MG TAB PO SCH (09:36)
--- NOTE | 2022-02-27 09:42 | RAD REPORT ---
EXAM DESCRIPTION: US - Renal Ultrasound-Complete - 02/27/2022 9:16 am CLINICAL HISTORY: ARF with post void COMPARISON: Abdomen Pelvis W Contrast dated 01/21/2022None. FINDINGS: The right kidney is absent. The left kidney measures 12.3 x 5.9 x 5.8 cm. Cortical thickne ss is normal. Echogenicity is increased slightly which could be medical renal disease or body habitus affects. No hydronephrosis or suspicious renal mass. A 15 millimeter cyst is present in the mid left kidney. Urinary bladder is detailed on separate report. Cystic mass adjacent to the bladder is of fluid reser voir for penile prosthesis. IMPRESSION: No hydronephrosis or suspicious mass of the left kidney. Slight increase in left renal parenchymal echogenicity is evident and could be body habitus artifact or medical renal disease.
[2022-02-27 13:50] VITALS: BP 119/74
--- NOTE | 2022-02-27 16:20 | P.DS ---
Admission Date: 02/26/22 Discharge Date: 02/27/22 Disposition: ROUTINE DISCHARGE Discharge Condition: GOOD Reason for Admission: Chest pain, back pain Brief History of Present Illness: 81-year-old male with history of CAD, CKD 3, chronic diastolic congestive heart failure, diabetes type 2insulin-dependent, hypertension, hyperlipidemia and dementia presents the emergency department for low back pain radiating down the left leg. While patient was in the emergency department he also began complaining of chest pain, patient received a cardiac work-up while he is in the emergency department his EKG was without acute changes, his troponin was moderately elevated at 92.8 high-sensitivity. Potassium also mildly elevated 5.4 but there was hemolysis present. Patient reports that his chest is feeling better although he still having the back pain radiating down his left leg. Patient was seen here and had a heart catheterization on 12/02/2021 which was significant for severe mid LAD in-stent restenosis with heavy calcium load, severe proximal RCA in-stent stenosis with heavy calcium load. At that time it was recommended the patient receive shockwave lithotripsy and balloon angioplasty which we are unable to perform at our facility. At that time patient symptoms had improved he was discharged to have this performed on outpatient basis but was readmitted at a later date and then transferred to his coat room attendant Dr. Costello at [facility], the patient is a very poor historian is unable to tell me exactly what happened but reports that he did not have a heart catheterization he thinks that they obtained a special CT scan to evaluate his heart, Dr. Costello recommended no further interventions at that time. Will need to admit given his significant CAD history, mild troponin elevation to trend troponins and consult with cardiology. Hospital Course: Concerns for possible history is presented and the patient wants asked to be evaluated by cardiology however because of his complex cardiac history in the past cardiology recommended medical management and aggressive basis. 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 He was deemed stable for discharge after his initial hyperkalemia resolved and he was evaluated by nephrology for this. He will follow up with all specialties on outpatient basis. Vital Signs/Physical Exam: Temp Pulse Resp BP Pulse Ox 98.6 F 106 H 14 119/74 95 02/27/22 12:00 02/27/22 12:00 02/27/22 12:00 02/27/22 12:00 02/27/22 12:00 General: Alert, Oriented x3 HEENT: Atraumatic, Normocephalic Neck: Supple Respiratory: Normal air movement Cardiovascular: Regular rate/rhythm, Normal S1 S2 Gastrointestinal: Soft and benign Musculoskeletal: No swelling Neurological: Normal speech, Normal strength at 5/5 x4 extr, Cranial nerves 3-12 intact Laboratory Data at Discharge: WBC 6.6 K/uL (4.3-10.9) 02/27/22 04:47 Hgb 12.3 g/dL (13.6-17.9) L 02/27/22 04:47 Hct 35.7 % (39.6-49.0) L 02/27/22 04:47 Plt Count 161 K/uL (152-406) 02/27/22 04:47 PT 10.4 SECONDS (9.5-12.5) 02/25/22 22:20 INR 0.95 02/25/22 22:20 Sodium 136 mmol/L (136-145) 02/27/22 04:47 Potassium 4.0 mmol/L (3.5-5.1) 02/27/22 04:47 BUN 19 mg/dL (7-18) H 02/27/22 04:47 Creatinine 1.18 mg/dL (0.55-1.3) 02/27/22 04:47 Glucose 154 mg/dL (74-106) H 02/27/22 04:47 Magnesium 2.0 mg/dL (1.8-2.4) 02/25/22 22:20 Total Bilirubin 1.1 mg/dL (0.2-1.0) H 02/27/22 04:47 AST 22 U/L (15-37) 02/27/22 04:47 ALT 20 U/L (12-78) 02/27/22 04:47 Alkaline Phosphatase 63 U/L (45-117) 02/27/22 04:47 Home Medications: Furosemide [Lasix*] 40 mg PO DAILY 03/17/20 Isosorbide Mononitrate [Isosorbide Mononitrate ER] 120 tab PO DAILY 09/24/20 Potassium Chloride [Klor-Con 10] 10 meq PO DAILY 11/30/21 Trazodone [Desyrel*] 50 mg PO BEDTIME PRN 11/30/21 Multivitamin with Minerals [One Daily Plus Minerals] 1 each PO DAILY 12/18/21 Sitagliptin Phosphate [Januvia] 50 mg PO DAILY 12/18/21 Atorvastatin Calcium [Lipitor] 1 tab PO DAILY 02/26/22 Clopidogrel Bisulfate [Plavix*] 1 tab PO DAILY 02/26/22 Acetaminophen with Codeine [Tylenol with-Codeine #3 Tablet] 1 each PO BID PRN 02/27/22 Aspirin [Aspirin EC] 81 mg PO DAILY 02/27/22 Insulin Glargine,Hum.rec.anlog [Lantus] 30 unit SQ BEDTIME 02/27/22 Metoprolol Succinate [Toprol Xl*] 25 mg PO BID 02/27/22 Nitroglycerin 0.4 mg SL PRN PRN 02/27/22 Olanzapine [Zyprexa] 2.5 mg PO DAILY 02/27/22 Tramadol HCl [Ultram] 50 mg PO DAILY 02/27/22 Diet: AHA Activity: Ad wilmer Followup: Unknown,U [Primary Care Provider] -
[2022-02-27 17:07] VITALS: TEMP 97
--- NOTE | 2022-02-28 15:33 | P.PN ---
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 use Qualified Code(s): E11.65 - Type 2 diabetes mellitus with hyperglycemia; 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 moist/pink, EOMI, Sclerae nonicteric Neck: Supple, 2+ carotid pulse no bruit, No LAD, Without JVD or thyroid abnormality Respiratory: Clear to auscultation bilaterally, Normal air movement Cardiovascular: Regular rate/rhythm, Normal S1 S2 Gastrointestinal: Normal bowel sounds, No tenderness Musculoskeletal: No tenderness Integumentary: No rashes Neurological: Normal gait, Normal strength at 5/5 x4 extr Lymphatics: No axilla or inguinal lymphadenopathy Impression Hyperkalemia- borderline , due to k supplementation ARF -may be due to diuretics use /pre-renal CAD r/o ACS HTN Dementia LUTS PLAN -Follow repeat labs today Previous creatinine improving to 1.18 Potassium controlled now Follow discharge planning Can start ROBBY or ARB for CAD management, follow renal clinic in 1 to 2 weeks if placed on ROBBY to monitor potassium level and choice of medication for potassium control 02/28/22
== END 2022-02-27 16:30 | disposition home or self-care (01) | DRG 683 ==
LOC: ER 20:01 → ERHOLD 02-26 02:56 → 3RD-ICU 02-26 18:03 → OBSVTOIN 02-26 19:04
PROVIDERS: ADMIT Internal Medicine Nephrology; ATTEND Internal Medicine Nephrology
DX: N17.9 Acute kidney failure, unspecified (principal); I13.0 Hypertensive heart and chronic kidney disease with heart failure and stage 1 through stage 4 chronic kidney disease, or unspecified chronic kidney disease; I50.32 Chronic diastolic (congestive) heart failure; Q60.0 Renal agenesis, unilateral; E87.5 Hyperkalemia; I25.10 Atherosclerotic heart disease of native coronary artery without angina pectoris; Z95.5 Presence of coronary angioplasty implant and graft; F03.90 Unspecified dementia, unspecified severity, without behavioral disturbance, psychotic disturbance, mood disturbance, and anxiety; E11.22 Type 2 diabetes mellitus with diabetic chronic kidney disease; N18.31 Chronic kidney disease, stage 3a; Z79.4 Long term (current) use of insulin; R07.9 Chest pain, unspecified; E78.5 Hyperlipidemia, unspecified; E11.65 Type 2 diabetes mellitus with hyperglycemia; M54.10 Radiculopathy, site unspecified; Z20.822 Contact with and (suspected) exposure to COVID-19
CPT/HCPCS: 36415; 71045; 72100; 76770; 76857; 80048; 80053; 80076; 82947; 83735; 83880; 84484; 85025; 85610; 93005; 93306; 96374; 96375; 99285; G0378; J1650; J1815; J2270; J2405; U0003

== ENCOUNTER 2022-02-28 13:17 | Emergency (ER) | payer OTHER ==
--- OUTSIDE RECORDS SUMMARY | 2022-02-28 13:30 | XMS REPORT | Continuity of Care Document ---
:1940 Author Organization [facility] t Address [address] [place] [address] Care Team Providers Name Role Phone BETANCOURT Primary Care Physician Unavailable Denny Attending Clinician Unavailable Lester Attending Clinician Unavailable ATTAR Attending Clinician Unavailable LAUREN Attending Clinician Unavailable MD Lauren AGUILAR Attending Clinician Unavailable Doctor Unassigned, Name Attending [...] Type Policy Number Effective Date Expiration Date Stacy torres [facility] [id number] 2019 DUAL COMPLETE HMO 00:00:00 MEDICAID OF [place] [id number] 2018 00:00:00 Problems Condition Condition Condition Status Onset Resolution Last Treating Co mments Source Name Details Category Date Date Treatment Clinician Date Unstable Unstable Disease Active Unive rs angina angina 5-07 ity of 00:00: [place] [facility] ALBA (acute ALBA (acute Disease Active U nivers kidney kidney 4-21 ity of injury) injury) 00:00: [place] [facility] Chest pain Chest pain Disease Active U nivers 4-21 ity of 00:00: [place] [facility] Chest pain Chest pain Disease Active U 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 4-15 it y of 00:00: [place] [facility] 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 00:00: [place] and and 00 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 2018-11 U nivers lobe lobe 1-06 ity of pneumonia pneumonia 00:00: [facility] 00 Medical Branch PNA PNA Disease Active 2018-11 Univers (pneumonia (pneumonia 0-25 it y of ) ) 00:00: [place] [facility] Acute on Acute on Disease Active 2018-11 Unive rs chronic chronic 0-25 ity of combined combined 00:00: [place] systolic systolic 00 Medica l and and Branch 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 Dyspnea Dyspnea Disease Active 2018-11 Univers 0-23 ity of 00:00: [place] [facility] CHF CHF Disease Active Univers exacerbati exacerbati 2-17 it y of on on 00:00: [place] [facility] Essential Essential Disease Active Uni vers hypertensi hypertensi 2-17 it y of on on 00:00: [place] [facility] 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 00:00: [place] without without 00 Medical complicati complicati Br anch on, on, without without long-term long-term current current use of use of insulin insulin CHF CHF Disease Active Univers exacerbati exacerbati 2-17 it y of on on 00:00: [place] [facility] Acute on Acute on Disease Active Unive rs chronic chronic 1-28 ity of systolic systolic 00:00: [place] CHF CHF 00 Medical (congestiv (congestiv Br anch e heart e heart failure) failure) Elevated Elevated Disease Active Unive rs troponin I troponin I 1-27 it y of level level 00:00: [place] [facility] DE LA CRUZ DE LA CRUZ Disease Active Univers (dyspnea (dyspnea 1-27 ity of on on 00:00: [place] exertion) exertion) 00 Medi birdie Branch Coronary Coronary Disease Active Unive rs artery artery 1-27 ity of disease disease 00:00: [place] involving involving 00 Medi birdie [place] 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 00:00: [place] disease disease 00 Medical Branch Coronary Coronary Disease Active Unive rs artery artery 1-27 ity of disease disease 00:00: [place] involving involving 00 Medi birdie [place] Branch 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 [...] Allergie 1-23 Clear s 00:00: [place] 00 [facility] NO KNOWN Drug Active Univers ALLERGIE Class ity of S [facility] Social History Social Habit Start Date Stop Date Quantity Comments Source Exposure to Yes [facility] SARS-CoV-2 (event) [facility] History of tobacco User of Univer sity of use smokeless [facility] tobacco [place] Alcohol intake 2021-10-31 2021-10-31 Current University 00:00:00 00:00:00 non-drinker of [facility] alcohol [place] (finding) Cigarettes smoked 2018-12-11 2018-12-11 Univers ity of current (pack per 00:00:00 00:00:00 ) - Reported Branch Cigarette 2018-12-11 2018-12-11 University of pack-years 00:00:00 00:00:00 [facility] Tobacco use and 2018-12-11 2018-12-11 Former user Universi ty of exposure 00:00:00 00:00:00 [facility] Sex Ass[birth year] At [birth year] Universit y of 00:00:00 00:00:00 [facility] Smoking Status Start Date Stop Date Source Former smoker 2018-12-11 00:00:00 2018-12-11 00:00:00 [facility] Medications Ordered Filled Start Stop Current Ordering Indication Dosage Frequency Signature Comments Components Source Medication Medication Date Date Medication? Clinician (SIG) Name Name aspirin 81 2020-11- No [id number] 81mg Take 1 Univers mg chewable 2-12-04 tablet by it y of tablet 00:00: 05:59 mouth [place] 00 :00 daily for Medical 30 days. Branch clopidogreL 2020-11- No [id number] 75mg Take 1 Univers 75 mg 2-12-04 tablet by ity of tablet 00:00: 05:59 mouth [place] 00 :00 daily for Medical 30 days. Branch furosemide 2020-11- No [id number] 20mg Take 1 Univers 20 mg -12-04 tablet by ity of tablet 00:00: 05:59 mouth [place] 00 :00 daily for Medical 30 days. Branch aspirin 81 2020-11- No [id number] 81mg Take 1 Univers mg chewable 2-12-04 tablet by it y of tablet 00:00: 05:59 mouth [place] 00 :00 daily for Medical 30 days. Branch clopidogreL 2020-11- No [id number] 75mg Take 1 Univers 75 mg 2-12-04 tablet by ity of tablet 00:00: 05:59 mouth [place] 00 :00 daily for Medical 30 days. Branch furosemide 2020-11- No [id number] 20mg Take 1 Univers 20 mg 2-12-04 tablet by ity of tablet 00:00: 05:59 mouth [place] 00 :00 daily for Medical 30 days. Branch aspirin 81 2020-11- No [id number] 81mg Take 1 Univers mg chewable 01-04 tablet by it y of tablet 00:00: 05:59 mouth [place] 00 :00 daily for Medical 30 days. Branch clopidogreL 2020-11- No [id number] 75mg Take 1 Univers 75 mg 01-04 tablet by ity of tablet 00:00: 05:59 mouth [place] 00 :00 daily for Medical 30 days. Branch furosemide 2020-11- No [id number] 20mg Take 1 Univers 20 mg 01-04 [...] 2-18 by mouth ity of 18:25: at [place] 21 bedtime. Medical Branch atorvastati 2020-11 Yes 40mg Take 40 mg Univers n 40 mg 2-18 by mouth ity of tablet 18:25: at [place] 21 bedtime. Medical Branch trazodone 2020-11 Yes [...] 2-18 by mouth ity of 18:25: at [place] [address] bedtime. Medical Branch atorvastati 2020-11 Yes 40mg Take 40 mg Univers n 40 mg 2-18 by mouth ity of tablet 18:25: at [place] 21 bedtime. Medical Branch metoprolol 2020-11 Yes [...] Until Discontinu ed, Routine QUEtiapine 2020-11 Yes [id number] 25mg Take 1 Univers 25 mg 2-18 tablet by ity of tablet 00:00: mouth at [place] 00 bedtime as Medical needed Branch (agitation /insomnia) . QUEtiapine 2020-11 Yes [id number] 25mg Take 1 Univers 25 mg 2-18 tablet by ity of tablet 00:00: mouth at [place] 00 bedtime as Medical needed Branch (agitation /insomnia) . QUEtiapine 2020-11 Yes [id number] 25mg Take 1 Univers 25 mg 2-18 tablet by ity of tablet 00:00: mouth at [place] 00 bedtime as Medical needed Branch (agitation /insomnia) . isosorbide 2020-11- No [id number] 60mg Take 1 Univers mononitrate 2-18 -18 tablet by it y of 60 mg 24 hr 00:00: 05:59 mouth 2 [place] tablet 00 :00 (two) Medical times Branch daily for 30 days. metoprolol 2020-11- No [id number] 37.5mg Take 1.5 Univers succinate 2-18 -18 tablets by ity of XL 25 mg 24 00:00: 05:59 mouth 2 [place] hr tablet 00 :00 (two) Medical times Branch daily for 30 days. isosorbide 2020-11- No [id number] 60mg Take 1 Univers mononitrate 2-18 -18 tablet by it y of 60 mg 24 hr 00:00: 05:59 mouth 2 [place] tablet 00 :00 (two) Medical times Branch daily for 30 days. metoprolol 2020-11- No [id number] 37.5mg Take 1.5 Univers succinate 2-18 -18 tablets by ity of XL 25 mg 24 00:00: 05:59 mouth 2 [place] hr tablet 00 :00 (two) Medical times Branch daily for 30 days. isosorbide 2020-11- No [id number] 60mg Take 1 Univers mononitrate 218 - tablet by it y of 60 mg 24 hr 00:00: 05:59 mouth 2 [place] tablet 00 :00 (two) [facility] times [place] daily for 30 days. metoprolol 2020-11- No [id number] 37.5mg Take 1.5 Univers succinate 218 18 tablets by ity of XL 25 mg 24 00:00: 05:59 mouth 2 [place] hr tablet 00 :00 (two) Medical times [place] daily for 30 days. aspirin 2020-11 Yes 81mg 81 mg, Univers chewable 2-17 Oral, ity of tablet 81 15:00: DAILY, [place] mg 00 First dose Medical on Thu [place] 11/01/21 at 0900, Until Discontinu ed, Routine furosemide 2020-11 Yes 20mg 20 mg, Unive rs (LASIX) 2-17 Oral, ity of tablet 20 14:30: DAILY, [place] mg 00 First dose Medical on Thu [place] 11/01/21 at 0830, Until Discontinu ed, Routine metoprolol 2020-11- No 25mg 25 mg, Univ ers succinate 2-17 -18 Oral, BID, ity of XL (TOPROL 14:30: 14:17 First dose [place] XL) tablet 00 :36 on [facility] 25 mg 11/01/21 Branch at 0830, Until Discontinu ed, Routine QUEtiapine 2020-11 Yes 25mg 25 mg, Unive rs (SEROQUEL) 2-17 Oral, ity of tablet 25 09:22: QHSPRN, [place] mg 01 Starting Medical on Thu [place] 11/01/21 at 0322, Until Discontinu ed, Routine, agitation/ insomnia donepeziL 2020-11 Yes 5mg 5 mg, Univers (ARICEPT) 2-17 Oral, QHS, ity of tablet 5 mg 03:00: First dose [place] 00 on [facility] 10/31/21 Branch at 2100, Until Discontinu ed, Routine atorvastati 2020-11 Yes 40mg 40 mg, Univ ers n (LIPITOR) 2-17 Oral, QHS, it y of tablet 40 03:00: First dose [place] mg 00 on [facility] 12/16/21 Branch at 2100, Until Discontinu ed, Routine clopidogreL 2020-11 Yes 75mg 75 mg, Univ ers (PLAVIX) - Oral, ity of tablet 75 23:30: DAILY, [place] mg 00 First dose Medical on [facility] Branch 10/31/21 at 1730, Until Discontinu ed, Routine sulfur 2020-11- No [id number] 5mL 5 mL, Unive rs hexafluorid 01-01 Intravenou i ty of e microsphr 17:00: 17:00 s, ONCE, 1 [place] (LUMASON) 00 :00 dose, On Medica l injection 5 [place] Branch mL 10/31/21 at 1100, Routine
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 Restricted medication : MEGGAN CAMARA isosorbide 2020-11- No 120mg 120 mg, Un mel mononitrate 01-01 Oral, ity of (IMDUR) 24 15:00: 14:16 DAILY, [place] hr tablet 00 :38 First dose Medi birdie 120 mg on [place] Branch 10/31/21 at 0900, Until Discontinu ed, Routine Sliding 2020-11 Yes Subcutaneo [facility] ers Scale -16 us, AC+HS, ity of Insulin-Reg 13:30: First dose [place] ular + Fsbg 00 on [place] Medica l Testing 10/31/21 Branch at 0730, Until Discontinu ed, Routine enoxaparin 2020-11- No 1mg/kg 80 mg Uni vers (LOVENOX) 01-0118 (rounded ity o f injection 09:00: 14:17 from 78 mg [place] 80 mg 00 :35 = 1 mg/kg Medical ?78 kg), Branch Subcutaido , Q24H, First dose on [place] 10/31/21 at 0300, Until Discontinu ed, Routine aspirin 2020-11- No 325mg 325 mg, Unive rs tablet 325 01-01 Oral, ity of mg 08:45: 08:15 ONCE, 1 [place] 00 :00 dose, On Medical [place] Branch [...] IV ity of (D50W) 08:16: Push, PRN, [place] injection 14 Starting Medica l 25 mL on [place] Branch 10/31/21 at 0216, Until Discontinu ed, ADAMA, Blood Glucose < or = 70 mg/dL and patient is unable to swallow or has mental status changes. morpHINE 2020-11 No 2mg 2 mg, Slow Un mel injection 2 -16 12-17 IV Push, ity of mg 07:36: 05:31 Q4HPRN, [place] 09 :07 Starting Medical on [place] Branch [...] 2-16 IV Push, ity of (PF)) 05:32: [place], [place] injection 4 10 Starting Medi birdie mg on Thu Branch 10/30/21 at 2332, Until Discontinu ed, Routine, Nausea and Vomiting (N/V) acetaminoph 2020-11 Yes 650mg 650 mg, Un mel en 2-16 Oral, ity of (TYLENOL) 05:31: [place], [place] tablet 650 56 Starting Medic al mg on Thu Branch 10/30/21 at 2331, Until Discontinu ed, Routine, Pain (scale 1-3) acetaminoph 2020-11 Yes [id number] 1{tbl} 1 tablet, Univers en-codeine 2-16 Oral, ity of (TYLENOL 05:29: Q6HPRN, [place] #3) 300-30 29 Starting Medic al mg [...] ity of mg 23:15: 22:23 ONCE, 1 [place] 00 :00 dose, [facility] Medical 04/25/21 at Branch 1815, STAT acetaminoph 2020- No 1{tbl} 1 tablet, Univers en-codeine 6-10 Oral, ity of (TYLENOL 19:00: 17:52 ONCE, 1 [place] #3) 300-30 00 :00 dose, [place] Medi birdie mg tablet 1 04/25/21 at Br anch tablet 1400, ADAMA cyclobenzap 2020- No 10mg 10 mg, Uni vers rine 6 06-10 Oral, ONCE ity of (FLEXERIL) 19:00: 17:52 NOW, 1 [place] tablet 10 00 :00 dose, [place] Medic al mg 04/25/21 at Branch 1400, ADAMA cyclobenzap Yes [id number] 5mg Take 1 Univers rine 5 mg 6-10 tablet by ity o f tablet 00:00: mouth 3 [place] [address] (three) Medical times Branch daily. cyclobenzap Yes [id number] 5mg Take 1 Univers rine 5 mg 6-10 tablet by ity o f tablet 00:00: mouth 3 [place] [address] (three) Medical times Branch daily. cyclobenzap 2020-0 Yes [id number] 5mg Take 1 Univers rine 5 mg 6-10 tablet by ity o f tablet 00:00: mouth 3 [place] [address] (three) Medical times Branch daily. acetaminoph 0 Yes [id number] 1{tbl} Take 1 Un mel en-codeine 6-10 tablet by ity of 300-30 mg 00:00: mouth [place] tablet 00 every 6 Medical (six) Branch hours as needed for Pain (scale 4-6). Indication s: acute pain, left sided low back pain cyclobenzap Yes [id number] 5mg Take 1 Univers rine 5 mg [...] left sided low back pain cyclobenzap Yes [id number] 5mg Take 1 Univers rine 5 mg [...] 50mg Take 1 Uni vers mg tablet 05-24- tablet by ity of 00:00: 04:59 mouth [...] Discontinu ed, Routine aspirin 81 2020-0 Yes [id number] 81mg Take 1 U nivers mg chewable 5-09 tablet by ity of tablet 00:00: mouth [place] 00 daily with Medical breakfast. Branch furosemide 2020-0 Yes [id number] 20mg Take 1 U nivers 20 mg 5-09 tablet by ity of tablet 00:00: mouth [place] 00 daily. Medical Branch aspirin 81 2020-0 Yes [id number] 81mg Take 1 U nivers mg chewable 5-09 tablet by ity of tablet 00:00: mouth [place] 00 daily with Medical breakfast. Branch furosemide 2020-0 Yes [id number] 20mg Take 1 U nivers 20 mg 5-09 tablet by ity of tablet 00:00: mouth [place] 00 daily. Medical Branch aspirin 81 2020-0 Yes [id number] 81mg Take 1 U nivers mg chewable 5-09 tablet by ity of tablet 00:00: mouth [place] 00 daily with Medical breakfast. Branch furosemide 2020-0 Yes [id number] 20mg Take 1 U nivers 20 mg 5-09 tablet by ity of tablet 00:00: mouth [place] 00 daily. Medical Branch aspirin 81 2020-0 Yes [id number] 81mg Take 1 U nivers mg chewable 5-09 tablet by ity of tablet 00:00: mouth [place] 00 daily with Medical breakfast. Branch furosemide 2020-0 Yes [id number] 20mg Take 1 U nivers 20 mg 5-09 tablet by ity of tablet 00:00: mouth [place] 00 daily. Medical Branch aspirin 81 2020-0 Yes [id number] 81mg Take 1 U nivers mg chewable 5-09 tablet by ity of tablet 00:00: mouth [place] 00 daily with Medical breakfast. Branch furosemide 2020-0 Yes [id number] 20mg Take 1 U nivers 20 mg 5-09 tablet by ity of tablet 00:00: mouth [place] 00 daily. Medical Branch aspirin 81 2020-0 Yes [id number] 81mg Take 1 U nivers mg chewable 5-09 tablet by ity of tablet 00:00: mouth [place] 00 daily with Medical breakfast. Branch furosemide 2020-0 Yes [id number] 20mg Take 1 U nivers 20 mg 5-09 tablet by ity of tablet 00:00: mouth [place] 00 daily. Medical Branch aspirin 81 2020-0 Yes [id number] 81mg Take 1 U nivers mg chewable 5-09 tablet by ity of tablet 00:00: mouth [place] 00 daily with Medical breakfast. Branch furosemide 2020-0 Yes [id number] 20mg Take 1 U nivers 20 mg 5-09 tablet by ity of tablet 00:00: mouth [place] 00 daily. Medical Branch aspirin 81 2020-0 Yes [id number] 81mg Take 1 U nivers mg chewable 5-09 tablet by ity of tablet 00:00: mouth [place] 00 daily with Medical breakfast. Branch furosemide 2020-0 Yes [id number] 20mg Take 1 U nivers 20 mg 5-09 tablet by ity of tablet 00:00: mouth [place] 00 daily. Medical Branch aspirin 81 2020-0 Yes [id number] 81mg Take 1 U nivers mg chewable 5-09 tablet by ity of tablet 00:00: mouth [place] 00 daily with Medical breakfast. Branch furosemide 2020-0 Yes [id number] 20mg Take 1 U nivers 20 mg 5-09 tablet by ity of tablet 00:00: mouth [place] 00 daily. Medical Branch aspirin 81 2020-0 2021- No [id number] 81mg Take 1 Univers mg chewable 5-09 12-18 tablet by it y of tablet 00:00: 00:00 mouth [place] 00 :00 daily with Medical breakfast. Branch furosemide 2019-2020- No [id number] 20mg Take 1 Univers 20 mg 03-24 tablet by ity of tablet 00:00: 00:00 mouth [place] 00 :00 daily. Medical [place] isosorbide 2019-2019- No [id number] 90mg Take 3 Univers mononitrate 03-24-08 tablets by i ty of 30 mg 24 hr 00:00: 00:00 mouth [place] tablet 00 :00 daily. [facility] isosorbide 2019-2019- No [id number] 90mg Take 3 Univers mononitrate 03-24- tablets by i ty of 30 mg 24 hr 00:00: 00:00 mouth [place] tablet 00 :00 daily. [facility] maalox/lido 2019-2019- No 5mL 5 mL, [facility] ers sydni 2 03-23 Oral, ity of %viscous 20:45: 20:56 ONCE, 1 [place] 1: 00 :00 dose, Fri Medical suspension 03/23/20 at [facility] (COMPOUNDED 1545, ) Routine maalox/lido 2019-0 2020- No 5mL 5 mL, [facility] sydni 2 03-23 Oral, ity of %viscous 20:45: 20:56 ONCE, 1 [place] 1: 00 :00 dose, Fri Medical suspension 03/23/20 at [facility] (COMPOUNDED 1545, ) Routine acetaminoph 2020-0 [...] Yes 90mg 90 mg, Unive rs mononitrate -08 Oral, ity of (IMDUR) 24 14:30: DAILY, [...] 2020-0 Yes 10meq 10 mEq, Univers (KLOR-CON -08 Oral, ity of M10) tablet 14:00: DAILY, [...] 1 [place] mg 00 :00 dose, [facility] 03/23/20 at Branch 0330, Routine clopidogreL 2020-0 2020- No 300mg 300 mg, U nivers (PLAVIX) 03-23 Oral, ity of tablet 300 08:30: 07:48 ONCE, 1 [place] mg 00 :00 dose, [facility] 03/23/20 at Branch 0330, Routine morpHINE 2020-0 Yes 2mg 2 mg, Slow Uni vers injection 2 - IV Push, ity of mg 07:59: Q4HPRN, [place] [address] Starting Medical Thu03/23/20 Branch at 0259, Until Discontinu ed, Routine, Chest pain morpHINE 2020-0 Yes 2mg 2 mg, Slow Uni vers injection 2 - IV Push, ity of mg 07:59: Q4HPRN, [place] [address] Starting Medical [facility] 03/23/20 Branch at 0259, Until [...] [place] 40 mEq 00 :00 dose, [facility] Medical 03/23/20 at Branch 0245, Routine [...] 2020- No 1{capsu Take 1 Univers onepezil 5- 05-07 le} capsule by ity of (NAMZARIC) [...] 2020- No 1{capsu Take 1 Univers onepezil 5- 05-07 le} capsule by ity of (NAMZARIC) 04:01: 00:00 mouth [place] 28-10 mg 03 :00 daily. Medical CSpX Branch folic 2020-0 2020- No Take by Univers acid/vit B 03-23 05-07 mouth. ity of complex and 04:01: 00:00 [...] 03-23 Oral, ity of (TYLENOL) 02:51: Q6HPRN, [place] tablet 650 29 Starting Medic al mg [facility] 03/22/20 Branch at 2151, Until Discontinu ed, Routine, Pain (scale 1-3) acetaminoph 2020-0 Yes 650mg 650 mg, Un mel en 03-23 Oral, ity of (TYLENOL) 02:51: Q6HPRN, [place] tablet 650 29 Starting Medic al mg [facility] 03/22/20 Branch at 2151, Until Discontinu ed, Routine, Pain (scale 1-3) nitroglycer 2020-0 Yes .4mg 0.4 mg, Uni vers in 03-23 Sublingual ity of (NITROSTAT) 02:38: , Q5MIN [place] sublingual 00 PRN, 3 Medical tablet 0.4 doses, Branch mg Starting [facility] 03/22/20 at 2138, Until Discontinu ed, ADAMA, Chest pain nitroglycer 2020-0 Yes .4mg 0.4 mg, Uni vers in 03-23 Sublingual ity of (NITROSTAT) 02:38: , Q5MIN [place] sublingual 00 PRN, 3 Medical tablet 0.4 doses, Branch mg Starting [facility] 03/22/20 at 2138, Until Discontinu ed, [...] 1 [place] mg 00 :00 dose, [facility] 03/22/20 at Branch 2145, ADAMA isosorbide 2020-0 Yes [id number] 90mg Take 1.5 Univers mononitrate 5-08 tablets by it y of 60 mg 24 hr 00:00: mouth [place] tablet 00 daily. [facility] isosorbide 2020-0 Yes [id number] 90mg Take 1.5 Univers mononitrate 5-08 tablets by it y of 60 mg 24 hr 00:00: mouth [place] tablet 00 daily. [facility] isosorbide 2020-0 Yes [id number] 90mg Take 1.5 Univers mononitrate 5-08 tablets by it y of 60 mg 24 hr 00:00: mouth [place] tablet 00 daily. [facility] isosorbide 2020-0 Yes [id number] 90mg Take 1.5 Univers mononitrate 5-08 tablets by it y of 60 mg 24 hr 00:00: mouth [place] tablet 00 daily. [facility] isosorbide 2020-0 Yes [id number] 90mg Take 1.5 Univers mononitrate 5-08 tablets by it y of 60 mg 24 hr 00:00: mouth [place] tablet 00 daily. [facility] isosorbide 2020-0 Yes [id number] 90mg Take 1.5 Univers mononitrate 5-08 tablets by it y of 60 mg 24 hr 00:00: mouth [place] tablet 00 daily. [facility] isosorbide 2020-0 Yes [id number] 90mg Take 1.5 Univers mononitrate 5-08 tablets by it y of 60 mg 24 hr 00:00: mouth [place] tablet 00 daily. [facility] isosorbide 2020-0 Yes [id number] 90mg Take 1.5 Univers mononitrate 5-08 tablets by it y of 60 mg 24 hr 00:00: mouth [place] tablet 00 daily. [facility] isosorbide 2020-0 Yes [id number] 90mg Take 1.5 Univers mononitrate 5-08 tablets by it y of 60 mg 24 hr 00:00: mouth [place] tablet 00 daily. [facility] isosorbide 2020-0 2020- No [id number] 90mg Take 1.5 Univers mononitrate 5-08 12-18 tablets by i ty of 60 mg 24 hr 00:00: 00:00 mouth [place] tablet 00 :00 daily. [facility] acetaminoph 2019-0 2020- No [id number] 975mg Take 3 Univers en 325 mg 5-08 05-19 tablets by ity of tablet 00:00: 04:59 mouth [place] 00 :00 every 8 Medical (eight) Branch hours for 10 days. acetaminoph 2020-0 2020- No [id number] 975mg Take 3 Univers en 325 mg 5-08 05-19 tablets by ity of tablet 00:00: 04:59 mouth [place] 00 :00 every 8 Medical (eight) Branch hours for 10 days. acetaminoph 2020-0 2020- No [id number] 975mg Take 3 Univers en 325 mg 5-08 05-19 tablets by ity of tablet 00:00: 04:59 mouth [place] 00 :00 every 8 Medical (eight) Branch hours for 10 days. acetaminoph 2020-0 2020- No [id number] 975mg Take 3 Univers en 325 mg 5-08 05-19 tablets by ity of tablet 00:00: 04:59 mouth [place] 00 :00 every 8 Medical (eight) Branch hours for 10 days. acetaminoph 2019- 2020- No [id number] 975mg Take 3 Univers en 325 mg 5-08 05-19 tablets by ity of tablet 00:00: 04:59 mouth [place] 00 :00 every 8 Medical (eight) Branch hours for 10 days. lidocaine 5 2019- No [id number] 1{patch Apply 1 Univers % (700 5-08 05-09 } Patch to ity of mg/patch) 00:00: 04:59 area(s) [place] patch 00 :00 once now Medical for 1 Branch dose. lidocaine 5 2019- No [id number] 1{patch Apply 1 Univers % (700 5-08 05-09 } Patch to ity of mg/patch) 00:00: 04:59 area(s) [place] patch 00 :00 once now Medical for 1 Branch dose. lidocaine 5 2020- No [id number] 1{patch Apply 1 Univers % (700 5-08 05-08 } Patch to ity of mg/patch) 00:00: 00:00 area(s) [place] patch 00 :00 once now Medical for 1 Branch dose. lidocaine 5 2019- No [id number] 1{patch Apply 1 Univers % (700 5-08 05-08 } Patch to ity of mg/patch) 00:00: 00:00 area(s) [place] patch 00 :00 once now Medical for 1 Branch dose. glipiZIDE 2019-0 Yes 5mg 5 mg, Univers (GLUCOTROL) 4-23 Oral, ity of tablet 5 mg 14:00: DAILY, [place] 00 First dose Medical on [facility] Branch 03/08/20 at 0900, Until Discontinu ed, Routine spironolact 2020- No [id number] 12.5mg Take 0.5 Univers one 25 mg 4-23 05-24 tablets by ity of tablet 00:00: 04:59 mouth [place] 00 :00 daily for Medical 30 days. Branch spironolact 2020- No [id number] 12.5mg Take 0.5 Univers one 25 mg 4-23 05-24 tablets by ity of tablet 00:00: 04:59 mouth [place] 00 :00 daily for Medical 30 days. Branch spironolact 2020- No [id number] 12.5mg Take 0.5 Univers one 25 mg 4-23 05-24 tablets by ity of tablet 00:00: 04:59 mouth [place] 00 :00 daily for Medical 30 days. Branch spironolact 2019- 2020- No [id number] 12.5mg Take 0.5 [facility] one 25 mg 4-23 05-07 tablets by ity of tablet 00:00: 00:00 mouth [place] 00 :00 daily for Medical 30 days. Branch spironolact 2020- No [id number] 12.5mg Take 0.5 [facility] one 25 mg 4-23 05-07 tablets by ity of tablet 00:00: 00:00 mouth [place] 00 :00 daily for Medical 30 days. Branch memantine-d 2019-0 Yes 1{capsu Take 1 U nivers onepezil 03-07 le} capsule by ity o f (NAMZARIC) 23:46: mouth [place] 28-10 mg 10 daily. Medical CSpX Branch folic 2019- Yes Take by Univers acid/vit B 03-07 mouth. ity of complex and 23:46: [place] C (B 10 Medical COMPLEX-VIT Branch RAZA C-FOLIC ACID ORAL) Cholecalcif 2019- Yes Take by Un mel ann, 03-07 mouth. ity of Vitamin D3, 23:46: [place] 2,000 unit 10 Medical capsule Branch MULTIVITAMI 2020-0 Yes Take by Un mel N ORAL 4-22 mouth. ity of 23:46: [place] [address] Medical Branch thiamine 2020-0 Yes 100mg Take [...] 4-22 mouth. ity of complex and 23:46: [facility] (B 10 Medical COMPLEX-VIT Branch RAZA C-FOLIC ACID ORAL) Cholecalcif 2020-0 Yes Take by Un mel ann, 4-22 mouth. ity of Vitamin D3, 23:46: [place] 2,000 unit 10 Medical capsule Branch MULTIVITAMI 2020-0 Yes Take by Un mel N ORAL 4-22 mouth. ity of 23:46: [place] [address] Medical Branch thiamine 2020-0 Yes 100mg Take [...] 4-22 mouth. ity of complex and 23:46: [facility] (B 10 Medical COMPLEX-VIT Branch RAZA C-FOLIC [...] 81mg Take 81 mg [facility] mg chewable 03-07- by mouth ity of tablet 20:15: 00:00 daily. [place] 29 :00 Medical Branch atorvastati 2020-0 2020- No 40mg Take 40 mg Univers n 40 mg -07 03- by mouth ity of tablet 20:15: 00:00 at [place] 29 :00 bedtime. Medical Branch temazepam 2019-0 Yes 15mg 15 mg, Univer s (RESTORIL) 4-22 Oral, ity of capsule 15 01:55: QHSPRN, [place] mg 38 Starting Medical Tue Branch 03/06/20 at 2055, Until Discontinu ed, Routine, Insomnia Magnesium 2020-0 Yes [id number] 400mg Take 400 [facility] Oxide 420 4-22 mg by ity of mg Tab 00:00: mouth [place] 00 daily. Medical Branch Insulin 2020-0 Yes [id number] 10U inject 10 [facility] Glargine 4-22 Units ity of 100 unit/mL 00:00: under the [place] (3 mL) 00 skin at Medical injection bedtime. Branch temazepam 2020-0 Yes [id number] 15mg Take 1 Un mel 15 mg 4-22 capsule by ity of capsule 00:00: mouth at [place] 00 bedtime as Medical needed for Branch Insomnia. furosemide 2020-0 Yes [id number] 40mg Take 1 [facility] 40 mg 4-22 tablet by ity of tablet 00:00: mouth [place] 00 every Medical morning Branch and evening. Magnesium 2020-0 Yes [id number] 400mg Take 400 [facility] Oxide 420 4-22 mg by ity of mg Tab 00:00: mouth [place] 00 daily. Medical Branch potassium 2020-0 Yes [id number] 20meq Take 20 [facility] chloride 20 4-22 mEq by ity of mEq packet 00:00: mouth [place] 00 daily. Medical Take with Branch lasix in the morning isosorbide 2020-0 Yes [id number] 15mg Take 0.5 [facility] mononitrate 4-22 tablets by it y of 30 mg 24 hr 00:00: mouth [place] tablet 00 daily. Medical Hold if Branch systolic blood pressure less than 120 Insulin 2020-0 Yes [id number] 10U inject 10 [facility] Glargine 4-22 Units ity of 100 unit/mL 00:00: under the [place] (3 mL) 00 skin at Medical injection bedtime. Branch temazepam 2020-0 Yes [id number] 15mg Take 1 Un mel 15 mg 4-22 capsule by ity of capsule 00:00: mouth at [place] 00 bedtime as Medical needed for Branch Insomnia. furosemide 2020-0 Yes [id number] 40mg Take 1 [facility] 40 mg 4-22 tablet by ity of tablet 00:00: mouth [place] 00 every Medical morning Branch and evening. Magnesium 2020-0 Yes [id number] 400mg Take 400 [facility] Oxide 420 4-22 mg by ity of mg Tab 00:00: mouth [place] 00 daily. Medical Branch potassium 2020-0 Yes [id number] 20meq Take 20 [facility] chloride 20 4-22 mEq by ity of mEq packet 00:00: mouth [place] 00 daily. Medical Take with Branch lasix in the morning isosorbide 2020-0 Yes [id number] 15mg Take 0.5 [facility] mononitrate 4-22 tablets by it y of 30 mg 24 hr 00:00: mouth [place] tablet 00 daily. Medical Hold if Branch systolic blood pressure less than 120 Insulin 2020-0 Yes [id number] 10U inject 10 [facility] Glargine 4-22 Units ity of 100 unit/mL 00:00: under the [place] (3 mL) 00 skin at Medical injection bedtime. Branch temazepam 2020-0 Yes [id number] 15mg Take 1 Un mel 15 mg 4-22 capsule by ity of capsule 00:00: mouth at [place] 00 bedtime as Medical needed for Branch Insomnia. furosemide 2020-0 Yes [id number] 40mg Take 1 [facility] 40 mg 4-22 tablet by ity of tablet 00:00: mouth [place] 00 every Medical morning Branch and evening. Magnesium 2020-0 Yes [id number] 400mg Take 400 [facility] Oxide 420 4-22 mg by ity of mg Tab 00:00: mouth [place] 00 daily. Medical Branch potassium 2020-0 Yes [id number] 20meq Take 20 [facility] chloride 20 4-22 mEq by ity of mEq packet 00:00: mouth [place] 00 daily. Medical Take with Branch lasix in the morning isosorbide 2020-0 Yes [id number] 15mg Take 0.5 [facility] mononitrate 4-22 tablets by it y of 30 mg 24 hr 00:00: mouth [place] tablet 00 daily. Medical Hold if Branch systolic blood pressure less than 120 Insulin 2020-0 Yes [id number] 10U inject 10 [facility] Glargine 4-22 Units ity of 100 unit/mL 00:00: under the [place] (3 mL) 00 skin at Medical injection bedtime. Branch vitamin 2020-0 2020- No [id number] 1000ug Take 1 Univers B-12 1,000 4-22 07-22 tablet by ity of mcg tablet 00:00: 04:59 mouth [place] 00 :00 daily for Medical 90 days. Branch vitamin 2020-0 2020- No [id number] 1000ug Take 1 Univers B-12 1,000 4-22 07-22 tablet by ity of mcg tablet 00:00: 04:59 mouth [place] 00 :00 daily for Medical 90 days. Branch vitamin 2020-0 2020- No [id number] 1000ug Take 1 Univers B-12 1,000 4-22 07-22 tablet by ity of mcg tablet 00:00: 04:59 mouth [place] 00 :00 daily for Medical 90 days. Branch vitamin 2020-0 2020- No [id number] 1000ug Take 1 [facility] B-12 1,000 4-22 07-22 tablet by ity of mcg tablet 00:00: 04:59 mouth [place] 00 :00 daily for Medical 90 days. Branch glipiZIDE 5 2020-0 2020- No [id number] 2.5mg Take 0.5 [facility] mg tablet 4-22 05-23 tablets by ity of 00:00: 04:59 mouth 2 [place] 00 :00 (two) Medical times Branch daily before breakfast and dinner for 30 days. metoprolol 2020- No [id number] 25mg Take 1 [facility] succinate 4-22 05-23 tablet by ity of XL 25 mg 24 00:00: 04:59 mouth 2 [place] hr tablet 00 :00 (two) Medical times Branch daily for 30 days. OLANZapine 2019- 2020- No [id number] 2.5mg Take 1 [facility] 2.5 mg 4-22 05-23 tablet by ity of tablet 00:00: 04:59 mouth at [place] 00 :00 bedtime Medical for 30 Branch days. ranolazine 2019- 2020- No [id number] 1000mg Take 2 [facility] 500 mg 12 4-22 05-23 tablets by ity of hr tablet 00:00: 04:59 mouth [place] 00 :00 every 12 Medical (twelve) Branch hours for 30 days. aspirin 81 2019- 2020- No [id number] 81mg Take 1 [facility] mg chewable 4-22 05-23 tablet by it y of tablet 00:00: 04:59 mouth [place] 00 :00 daily with Medical breakfast Branch for 30 days. atorvastati 2019- 2020- No [id number] 40mg Take 1 [facility] n 40 mg 4-22 05-23 tablet by ity of tablet 00:00: 04:59 mouth at [place] 00 :00 bedtime Medical for 30 Branch days. glipiZIDE 5 2020- No [id number] 2.5mg Take 0.5 [facility] mg tablet 4-22 05-23 tablets by ity of 00:00: 04:59 mouth 2 [place] 00 :00 (two) Medical times Branch daily before breakfast and dinner for 30 days. metoprolol 2019- 2020- No [id number] 25mg Take 1 [facility] succinate 4-22 05-23 tablet by ity of XL 25 mg 24 00:00: 04:59 mouth 2 [place] hr tablet 00 :00 (two) Medical times Branch daily for 30 days. OLANZapine 2019- 2020- No [id number] 2.5mg Take 1 [facility] 2.5 mg 4-22 05-23 tablet by ity of tablet 00:00: 04:59 mouth at [place] 00 :00 bedtime Medical for 30 Branch days. ranolazine 2020-0 2020- No [id number] 1000mg Take 2 [facility] 500 mg 12 4-22 05-23 tablets by ity of hr tablet 00:00: 04:59 mouth [place] 00 :00 every 12 Medical (twelve) Branch hours for 30 days. aspirin 81 2019- 2020- No [id number] 81mg Take 1 [facility] mg chewable 4-22 05-23 tablet by it y of tablet 00:00: 04:59 mouth [place] 00 :00 daily with Medical breakfast Branch for 30 days. atorvastati 2019- 2020- No [id number] 40mg Take 1 [facility] n 40 mg 4-22 05-23 tablet by ity of tablet 00:00: 04:59 mouth at [place] 00 :00 bedtime Medical for 30 Branch days. glipiZIDE 5 2020- No [id number] 2.5mg Take 0.5 [facility] mg tablet - 05-23 tablets by ity of 00:00: 04:59 mouth 2 [place] 00 :00 (two) Medical times Branch daily before breakfast and dinner for 30 days. metoprolol 2019- 2020- No [id number] 25mg Take 1 [facility] succinate 4-22 05-23 tablet by ity of XL 25 mg 24 00:00: 04:59 mouth 2 [place] hr tablet 00 :00 (two) Medical times Branch daily for 30 days. OLANZapine 2019- 2020- No [id number] 2.5mg Take 1 [facility] 2.5 mg 4-22 05-23 tablet by ity of tablet 00:00: 04:59 mouth at [place] 00 :00 bedtime Medical for 30 Branch days. ranolazine 2019-0 2020- No [id number] 1000mg Take 2 [facility] 500 mg 12 4-22 05-23 tablets by ity of hr tablet 00:00: 04:59 mouth [place] 00 :00 every 12 Medical (twelve) Branch hours for 30 days. aspirin 81 2019- 2020- No [id number] 81mg Take 1 [facility] mg chewable 4-22 05-23 tablet by it y of tablet 00:00: 04:59 mouth [place] 00 :00 daily with Medical breakfast Branch for 30 days. atorvastati 2019-0 2020- No [id number] 40mg Take 1 [facility] n 40 mg 4-22 05-23 tablet by ity of tablet 00:00: 04:59 mouth at [place] 00 :00 bedtime Medical for 30 Branch days. glipiZIDE 5 2020- No [id number] 2.5mg Take 0.5 [facility] mg tablet 03-07-23 tablets by ity of 00:00: 04:59 mouth 2 [place] 00 :00 (two) Medical times Branch daily before breakfast and dinner for 30 days. metoprolol 2019-2019- No [id number] 25mg Take 1 [facility] succinate 03-07-23 tablet by ity of XL 25 mg 24 00:00: 04:59 mouth 2 [place] hr tablet 00 :00 (two) Medical times Branch daily for 30 days. ranolazine 2019-2019- No [id number] 1000mg Take 2 [facility] 500 mg 12 03-07-23 tablets by ity of hr tablet 00:00: 04:59 mouth [place] 00 :00 every 12 Medical (twelve) Branch hours for 30 days. atorvastati 2019-2019- No [id number] 40mg Take 1 [facility] n 40 mg 03-07-23 tablet by ity of tablet 00:00: 04:59 mouth at [place] 00 :00 bedtime Medical for 30 Branch days. furosemide 2019- 2020- No [id number] 40mg Take 1 [facility] 40 mg -06 04-08 tablet by ity of tablet 00:00: 00:00 mouth [place] 00 :00 every Medical morning Branch and evening. aspirin 81 2019- 2020- No [id number] 81mg Take 1 [facility] mg chewable 03-07-08 tablet by it y of tablet 00:00: 00:00 mouth [place] 00 :00 daily with Medical breakfast Branch for 30 days. isosorbide 2019- No [id number] 15mg Take 0.5 [facility] mononitrate 03-07-08 tablets by i ty of 30 mg 24 hr 00:00: 00:00 mouth [place] tablet 00 :00 daily. Medical Hold if Branch systolic blood pressure less than 120 Insulin 2019- 2020- No [id number] 10U inject 10 [facility] Glargine -22 05-08 Units ity of 100 unit/mL 00:00: 00:00 under the [place] (3 mL) 00 :00 skin at Medical injection bedtime. Branch glipiZIDE 5 2019- No [id number] 2.5mg Take 0.5 [facility] mg tablet 03-07-08 tablets by ity of 00:00: 00:00 mouth 2 [place] 00 :00 (two) Medical times Branch daily before breakfast and dinner for 30 days. metoprolol 2019- No [id number] 25mg Take 1 [facility] succinate 03-07-08 tablet by ity of XL 25 mg 24 00:00: 00:00 mouth 2 [place] hr tablet 00 :00 (two) Medical times Branch daily for 30 days. ranolazine 2019- No [id number] 1000mg Take 2 [facility] 500 mg 12 03-07-08 tablets by ity of hr tablet 00:00: 00:00 mouth [place] 00 :00 every 12 Medical (twelve) Branch hours for 30 days. furosemide 2019- No [id number] 40mg Take 1 [facility] 40 mg 03-07-08 tablet by ity of tablet 00:00: 00:00 mouth [place] 00 :00 every Medical morning Branch and evening. aspirin 81 2019- No [id number] 81mg Take 1 [facility] mg chewable 03-07-08 tablet by it y of tablet 00:00: 00:00 mouth [place] 00 :00 daily with Medical breakfast Branch for 30 days. atorvastati 2019- 2020- No [id number] 40mg Take 1 [facility] n 40 mg 03-07-08 tablet by ity of tablet 00:00: 00:00 mouth at [place] 00 :00 bedtime Medical for 30 Branch days. Magnesium 2019-2019- No [id number] 400mg Take 400 [facility] Oxide 420 03-07-08 mg by ity of mg Tab 00:00: 00:00 mouth [place] 00 :00 daily. Medical Branch vitamin 2019-2019- No [id number] 1000ug Take 1 [facility] B-12 1,000 03-07-08 tablet by ity of mcg tablet 00:00: 00:00 mouth [place] 00 :00 daily for Medical 90 days. Branch isosorbide 2020- No [id number] 15mg Take 0.5 [facility] mononitrate 03-07 05-08 tablets by i ty of 30 mg 24 hr 00:00: 00:00 mouth [place] tablet 00 :00 daily. Medical Hold if Branch systolic blood pressure less than 120 OLANZapine 2020- No [id number] 2.5mg Take 1 [facility] 2.5 mg 03-07-07 tablet by ity of tablet 00:00: 00:00 mouth at [place] 00 :00 bedtime Medical for 30 Branch days. temazepam 2020- No [id number] 15mg Take 1 U nivers 15 mg 03-07-07 capsule by ity of capsule 00:00: 00:00 mouth at [place] 00 :00 bedtime as Medical needed for Branch Insomnia. potassium 2019- 2020- No [id number] 20meq Take 20 Univers chloride 20 03-07 05-07 mEq by ity o f mEq packet 00:00: 00:00 mouth [place] 00 :00 daily. Medical Take with Branch lasix in the morning OLANZapine 2019- 2020- No [id number] 2.5mg Take 1 [facility] 2.5 mg 03-07-07 tablet by ity of tablet 00:00: 00:00 mouth at [place] 00 :00 bedtime Medical for 30 Branch days. temazepam 2019- No [id number] 15mg Take 1 U nivers 15 mg 03-07-07 capsule by ity of capsule 00:00: 00:00 mouth at [place] 00 :00 bedtime as Medical needed for Branch Insomnia. potassium 2019- No [id number] 20meq Take 20 [facility] chloride 20 03-07 05-07 mEq by ity o f mEq packet 00:00: 00:00 mouth [place] 00 :00 daily. Medical Take with Branch lasix in the morning isosorbide 2019- No 60mg 60 mg, Univ ers mononitrate 03-06 04-21 Oral, ity of (IMDUR) 24 14:00: 13:43 DAILY, [place] hr tablet 00 :56 First dose Medi birdie 60 mg on Thu [place] 03/06/20 at 0900, Until Discontinu ed, Routine OLANZapine 2019- Yes 2.5mg 2.5 mg, Uni vers (ZyPREXA) 4- Oral, QHS, ity of tablet 2.5 02:00: First dose [place] mg 00 on Thu [facility] 03/05/20 at Branch 2100, Until Discontinu ed, Routine insulin 2019- Yes 10U 10 Units, Unive rs glargine - Subcutaneo ity o f (LANTUS 02:00: us, QHS, [place] U-100) 00 First dose Medical injection on [facility] Branch 10 Units 03/05/20 at 2100, Until Discontinu ed, Routine donepezil 2020-0 Yes 5mg 5 mg, Univers (ARICEPT) 4-21 Oral, QHS, ity of tablet 5 mg 02:00: First dose [place] 00 on [facility] 03/05/20 at Branch 2100, Until Discontinu ed, Routine atorvastati 2020-0 Yes 40mg 40 mg, Univ ers n (LIPITOR) 4-21 Oral, QHS, it y of tablet 40 02:00: First dose [place] mg 00 on [facility] 03/05/20 at Branch 2100, Until Discontinu ed, Routine isosorbide 2020-0 2020- No 30mg 30 mg, Univ ers mononitrate 03-05-20 Oral, ity of (IMDUR) 24 15:30: 15:21 ONCE, 1 [place] hr tablet 00 :00 dose, [facility] Medic al 30 mg 03/05/20 at Branch 1030, Routine spironolact 2020-0 Yes 12.5mg 12.5 mg, [facility] one 4-20 Oral, ity of (ALDACTONE) 14:00: DAILY, [place] tablet 12.5 00 First dose Me dical mg on [facility] 03/05/20 at 0900, Until Discontinu ed, Routine memantine 2020-0 Yes 10mg 10 mg, Univer s (NAMENDA) 4-20 Oral, ity of tablet 10 14:00: DAILY, [place] mg 00 First dose Medical on [facility] 03/05/20 at 0900, Until Discontinu ed, Routine
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 Restricted medication : MEGADC lisinopril 2020-0 2020- No 5mg 5 mg, Unive rs (PRINIVIL,Z 03-05-21 Oral, ity of ESTRIL) 14:00: 13:44 DAILY, [place] tablet 5 mg 00 :01 First dose Me dical on [facility] 03/05/20 at 0900, Until Discontinu ed, Routine isosorbide 2020-0 2020- No 30mg 30 mg, Univ ers mononitrate 03-05-20 Oral, ity of (IMDUR) 24 14:00: 14:20 DAILY, [place] hr tablet 00 :04 First dose Medi birdie 30 mg on Thu Branch 03/05/20 at 0900, Until Discontinu ed, Routine ranolazine 2020-0 Yes 500mg 500 mg, Uni vers (RANEXA) 12 4-20 Oral, ity of hr tablet 13:00: Q12H, [place] 500 mg 00 First dose Medical on Mon Branch 03/05/20 at 0800, Until Discontinu ed, Routine metoprolol 2020-0 Yes 25mg 25 mg, Unive rs succinate 4-20 Oral, BID, ity of XL (TOPROL 13:00: First dose [place] XL) tablet 00 on Mon Medical 25 mg 03/05/20 at Branch 0800, [...] 00 BREAKFAST, Medical First dose Branch on 03/05/20 at 0800, Until Discontinu ed, Routine Sliding 2020-0 Yes Subcutaneo Univ ers Scale 4-20 us, AC+HS, ity of Insulin-Reg 12:30: First dose [place] ular + Fsbg 00 on Thu Medica l Testing 03/05/20 at Branch 0730, Until Discontinu ed, Routine glipiZIDE 2020-0 2020- No 5mg 5 mg, Univer s (GLUCOTROL) - 04-22 Oral, ity of tablet 5 mg 12:30: 19:41 BIDAC, [place] 00 :44 First dose Medical on Thu Branch 03/05/20 at 0730, Until Discontinu ed, [...] IV ity of (D50W) 03:02: Push, PRN, [place] injection 42 Starting Medica l 25 mL [facility] 03/04/20 at 2202, Until Discontinu ed, ADAMA, Blood Glucose < or = 70 mg/dL and patient is unable to swallow or has mental status changes. furosemide 2020-0 Yes 40mg 40 mg, Unive rs (LASIX) 4-20 Oral, ity of tablet 40 03:00: QAM+PM, [place] mg 00 First dose Medical on [facility] Branch 03/04/20 at 2200, Until Discontinu ed, Routine cyanocobala 2020-0 Yes 1000ug 1,000 mcg, Univers min -20 Subcutaneo ity of (VITAMIN 03:00: us, Q24H, [place] B12) 00 First dose Medical injection on [facility] 1,000 mcg 03/04/20 at 2200, Until Discontinu ed, Routine heparin 2020-0 Yes 5000U 5,000 Univers (porcine) 4-20 Units, ity of injection 03:00: Subcutaneo [place] 5,000 Units 00 us, Q8H, Medi birdie First dose Branch on [facility] 03/04/20 at 2200, Until Discontinu ed, Routine ondansetron 2020-0 Yes 4mg 4 mg, Slow Univers (ZOFRAN 4-20 IV Push, ity of (PF)) 02:34: Q6HPRN, [place] injection 4 40 Starting Medi birdie mg [facility] 03/04/20 at 2133, Until Discontinu ed, Routine, Nausea and Vomiting (N/V) traMADol 2019-0 2020- No 50mg 50 mg, Univer s (ULTRAM) 4-20 04-22 Oral, ity of tablet 50 02:34: 02:33 Q8HPRN, [place] mg 23 :23 Starting Medical [facility] 03/04/20 at 2133, Until 03/06/20 at 2132, Routine, Pain (scale 4-6) acetaminoph 2020-0 Yes 650mg 650 mg, Un mel en 4-20 Oral, ity of (TYLENOL) 02:34: Q6HPRN, [place] tablet 650 20 Starting Medic al mg [facility] 03/04/20 at 2133, Until Discontinu ed, Routine, Pain (scale 1-3) lisinopril 2020-0 Yes [id number] 5mg Take 1 [facility] 5 mg tablet 4-18 tablet by ity of 00:00: mouth [place] 00 daily. Medical Branch isosorbide 2020-0 Yes [id number] 30mg Take 1 [facility] mononitrate 4-18 tablet by ity of 30 mg 24 hr 00:00: mouth [place] tablet 00 daily. Medical Branch lisinopril 2020-0 Yes [id number] 5mg Take 1 [facility] 5 mg tablet 4-18 tablet by ity of 00:00: mouth [place] 00 daily. Medical Branch isosorbide 2020-0 Yes [id number] 30mg Take 1 [facility] mononitrate 4-18 tablet by ity of 30 mg 24 hr 00:00: mouth [place] tablet 00 daily. Medical Branch lisinopril 2020-0 2020- No [id number] 5mg Take 1 [facility] 5 mg tablet 4-18 04-22 tablet by it y of 00:00: 00:00 mouth [place] 00 :00 daily. Medical Branch isosorbide 2020-0 2020- No [id number] 30mg Take 1 [facility] mononitrate 4-18 04-22 [...] ity of 17:34: [place] 27 Medical Branch thiamine 2020-0 Yes 100mg Take 100 Univ ers (VITAMIN 4-17 mg by ity of B-1) 100 mg 17:34: mouth [place] tablet 27 daily. Medical Branch aspirin 81 2020-0 Yes 81mg Take 81 mg U nivers mg chewable 4-17 by mouth ity of tablet 17:34: daily. [place] [id number] Medical Branch atorvastati 2020-0 Yes 40mg Take 40 mg Univers n 40 mg 4-17 by mouth ity of tablet 17:34: at [place] [address] bedtime. Medical Branch NaCl 0.9% 2020-0 Yes 10mL Inject 10 Uni vers (NS) Soln 4-17 mL ity of 10 mL with 17:34: intravenou [place] sodium 27 sly once Medical chloride now. Branch 2.5 mEq/mL SolP 17.125 mEq memantine-d 2020-0 Yes 1{capsu Take 1 U nivers onepezil 4-17 le} capsule by ity o f (NAMZARIC) 17:34: mouth [place] 28-10 mg 27 daily. Medical CSpX Branch folic 2020-0 Yes Take by Univers acid/vit B 4-17 mouth. ity of complex and 17:34: [place] C ([facility] Medical COMPLEX-VIT Branch RAZA C-FOLIC ACID ORAL) Cholecalcif 2020-0 Yes Take by Un mel ann, 4-17 mouth. ity of Vitamin D3, 17:34: [place] 2,000 unit 27 Medical capsule Branch metoprolol 2020-0 Yes 12.5mg Take 12.5 Univers tartrate 4-17 mg by ity of 12.5 mg 17:34: mouth 2 [place] 27 (two) Medical times Branch daily. MULTIVITAMI 2020-0 Yes Take by Un mel N ORAL 4-17 mouth. ity of 17:34: [place] [address] Medical Branch thiamine 2020-0 Yes 100mg Take 100 Univ ers (VITAMIN 4-17 mg by ity of B-1) 100 mg 17:34: mouth [place] tablet 27 daily. Medical Branch aspirin 81 2020-0 Yes 81mg Take 81 mg U nivers mg chewable 4-17 by mouth ity of tablet 17:34: daily. [place] [address] Medical Branch atorvastati 2020-0 Yes 40mg Take 40 mg Univers n 40 mg 4-17 by mouth ity of tablet 17:34: at [place] [address] bedtime. Medical Branch NaCl 0.9% 2020-0 Yes [...] Until Discontinu ed, Routine furosemide 2020-0 Yes [id number] 40mg Take 1 [facility] 40 mg 4-17 tablet by ity of tablet 00:00: mouth [place] 00 every Medical morning Branch and evening. potassium 2020-0 Yes [id number] 20meq Take 20 [facility] chloride 20 4-17 mEq by ity of mEq packet 00:00: mouth [place] 00 daily. Medical Branch vitamin 2020-0 Yes [id number] 1000ug Take 1 U nivers B-12 1,000 4-17 tablet by ity of mcg tablet 00:00: mouth [place] 00 daily. Medical Branch furosemide 2020-0 Yes [id number] 40mg Take 1 [facility] 40 mg 4-17 tablet by ity of tablet 00:00: mouth [place] 00 every Medical morning Branch and evening. potassium 2020-0 Yes [id number] 20meq Take 20 Univers chloride 20 4-17 mEq by ity of mEq packet 00:00: mouth [place] 00 daily. Medical Branch vitamin 2020-0 Yes [id number] 1000ug Take 1 U nivers B-12 1,000 4-17 tablet by ity of mcg tablet 00:00: mouth [place] 00 daily. Medical Branch furosemide 2020-0 2020- No [id number] 40mg Take 1 Univers 40 mg 4-17 04-22 tablet by ity of tablet 00:00: 00:00 mouth [place] 00 :00 every Medical morning Branch and evening. potassium 2020-0 2020- No [id number] 20meq Take 20 [facility] chloride 20 4-17 04-22 mEq by ity o f mEq packet 00:00: 00:00 mouth [place] 00 :00 daily. Medical Branch vitamin 2020-0 2020- No [id number] 1000ug Take 1 Univers B-12 1,000 03-0222 tablet by ity of mcg tablet 00:00: 00:00 mouth [place] 00 :00 daily. Medical Branch cyanocobala 2020-0 Yes 1000ug 1,000 mcg, Univers min 4-16 Subcutaneo ity of (VITAMIN 20:45: us, Q24H, [place] B12) 00 First dose Medical injection on [facility] 1,000 mcg 03/01/20 at 1545, Until Discontinu ed, Routine isosorbide 2020-0 Yes 30mg 30 mg, Unive rs mononitrate 4-16 Oral, ity of (IMDUR) 24 14:00: DAILY, [place] hr tablet 00 First dose Medi birdie 30 mg on [facility] 03/01/20 at 0900, Until Discontinu ed, Routine memantine 2020-0 Yes 10mg 10 mg, Univer s (NAMENDA) 4-16 Oral, ity of tablet 10 14:00: DAILY, [place] mg 00 First dose Medical on [facility] 03/01/20 at 0900, Until Discontinu ed, Routine
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 Restricted medication : MEGADC lisinopril 2020-0 Yes 5mg 5 mg, Univer s (PRINIVIL,Z 4-16 Oral, ity of ESTRIL) 14:00: DAILY, [place] tablet 5 mg 00 First dose Me dical on [facility] 03/01/20 at 0900, Until Discontinu ed, Routine enoxaparin 2020-0 Yes 30mg 30 mg, Unive rs (LOVENOX) 4-16 Subcutaneo ity of injection 14:00: [place], DAILY, [place] 30 mg 00 First dose Medical on [facility] 03/01/20 at 0900, Until Discontinu ed, Routine KCL 2020-0 2020- No 20meq 20 mEq, Univers (KLOR-CON 4-16 04-16 Oral, ity of M20) tablet 14:00: 13:26 DAILY, [place] 20 mEq 00 :35 First dose Medical on [facility] 03/01/20 at 0900, Until Discontinu ed, Routine KCL 2020-0 Yes 40meq 40 mEq, Univers (KLOR-CON 4-16 Oral, BID, ity of M20) tablet 13:30: First dose [place] 40 mEq 00 on [facility] Medical 03/01/20 at Branch 0830, Until Discontinu ed, Routine magnesium 2020-0 2020- No 2g 2 g, IV Univ ers sulfate in 03-01 Infusion, ity of water 2 03:30: 03:30 ONCE, 1 [place] gram/50 mL 00 :00 dose, [facility] ([place], [place]) birdie (4 %) 2 g 02/29/20 at [facility] piggyback 223 metoprolol 2020-0 2020- No 5mg 5 mg, Slow Univers (LOPRESSOR) 03-01 IV Push, ity of injection 5 03:30: 03:37 ONCE, 1 [place] mg 00 :00 dose, Thu [facility] 02/29/20 at Branch 2230, ADAMA glipiZIDE 2020-0 Yes 5mg 5 mg, Univers (GLUCOTROL) 03-01 Oral, ity of tablet 5 mg 02:45: [place]AC[place] 00 First [place] Medical on [facility] 02/29/20 at 2145, Until Discontinu ed, Routine insulin 2020-0 Yes 10U 10 Units, Unive rs glargine 03-01 Subcutaneo ity o f (LANTUS 02:45: us, QHS, [place] U-100) 00 First dose Medical injection on [facility] 10 Units 02/29/20 at 2145, Until Discontinu ed, Routine OLANZapine 2020-0 Yes 2.5mg 2.5 mg, Uni vers (ZyPREXA) 03-01 Oral, QHS, ity of tablet 2.5 02:45: First dose [place] mg 00 on [facility] 02/29/20 at Branch 2145, Until Discontinu ed, Routine ranolazine 2020-0 Yes 500mg 500 mg, Uni vers (RANEXA) 12 03-01 Oral, ity of hr tablet 02:30: Q12H, [place] 500 mg 00 First dose Medical on [facility] 02/29/20 at 2130, Until Discontinu ed, Routine spironolact 2020-0 Yes 12.5mg 12.5 mg, Univers one 03-01 Oral, ity of (ALDACTONE) 02:30: DAILY, [place] tablet 12.5 00 First dose Me dical mg on [facility] 02/29/20 at 2130, Until Discontinu ed, Routine [...] tablet 650 25 Starting Medic al mg [facility] 02/29/20 at 1857, Until Discontinu ed, Routine, [...] 02-14 by mouth ity of 00:00: daily. Medical Branch donepezil 5 2020- No 5mg Take 5 mg Univers mg tablet 02-14 by mouth ity o f 00:00: 00:00 daily. [place] 00 :00 Medical Branch nitroglycer 2019- No [...] by mouth ity of tablet 23:00: daily. [place] [address] Medical Branch atorvastati 2020-0 Yes 40mg Take 40 mg Univers n 40 mg 3-03 by mouth ity of tablet 23:00: at [place] [address] bedtime. Medical Branch NaCl 0.9% 2020-0 Yes [...] by ity of mEq packet 23:00: mouth [place] 52 daily. Medical Branch Cholecalcif 2020-0 Yes Take by Un mel ann, 3-03 mouth. ity of Vitamin D3, 23:00: [place] 2,000 unit 52 Medical capsule Branch metoprolol 2020-0 Yes 12.5mg Take 12.5 Univers tartrate 3-03 mg by ity of 12.5 mg 23:00: mouth 2 [place] [address] (two) Medical times Branch daily. MULTIVITAMI 2020-0 Yes Take by Un mel N ORAL 3-03 mouth. ity of 23:00: [place] [address] Medical Branch thiamine 2020-0 Yes 100mg Take 100 Univ ers (VITAMIN 3-03 mg by ity of B-1) 100 mg 23:00: mouth [place] tablet 52 daily. Medical Branch aspirin 81 2020-0 Yes 81mg Take 81 mg U nivers mg chewable 3-03 by mouth ity of tablet 23:00: daily. [place] [address] Medical Branch atorvastati 2020-0 Yes 40mg Take 40 mg Univers n 40 mg 3-03 by mouth ity of tablet 23:00: at [place] [address] bedtime. Medical Branch NaCl 0.9% 2020-0 Yes [...] by ity of mEq packet 23:00: mouth [place] 52 daily. Medical Branch Cholecalcif 2020-0 Yes Take by Un mel ann, 3-03 mouth. ity of Vitamin D3, 23:00: [place] 2,000 unit 52 Medical capsule Branch metoprolol 2020-0 Yes 12.5mg Take 12.5 Univers tartrate 3-03 mg by ity of 12.5 mg 23:00: mouth 2 [place] 52 (two) Medical times Branch daily. MULTIVITAMI 2020-0 Yes Take by Un mel N ORAL 3-03 mouth. ity of 23:00: [place] [address] Medical Branch thiamine 2020-0 Yes 100mg Take 100 Univ ers (VITAMIN 3-03 mg by ity of B-1) 100 mg 23:00: mouth [place] tablet 52 daily. Medical Branch aspirin 81 2020-0 Yes 81mg Take 81 mg U nivers mg chewable 3-03 by mouth ity of tablet 23:00: daily. [place] [address] Medical Branch atorvastati 2020-0 Yes 40mg Take 40 mg Univers n 40 mg 3-03 by mouth ity of tablet 23:00: at [place] [address] bedtime. Medical Branch NaCl 0.9% 2020-0 Yes [...] ity of complex and 23:00: [place] C ([facility] Medical COMPLEX-VIT Branch RAZA C-FOLIC ACID ORAL) potassium 2020-0 Yes 20meq Take 20 Univ ers chloride 20 3-03 mEq by ity of mEq packet 23:00: mouth [place] 52 daily. Medical Branch Cholecalcif 2020-0 Yes Take by Un mel ann, 3-03 mouth. ity of Vitamin D3, 23:00: [place] 2,000 unit 52 Medical capsule Branch metoprolol 2020-0 Yes 12.5mg Take 12.5 Univers tartrate 3-03 mg by ity of 12.5 mg 23:00: mouth 2 [place] 52 (two) Medical times Branch daily. MULTIVITAMI 2020-0 Yes Take by Un mel N ORAL 3-03 mouth. ity of 23:00: [place] [address] Medical Branch thiamine 2020-0 Yes 100mg Take 100 Univ ers (VITAMIN 3-03 mg by ity of B-1) 100 mg 23:00: mouth [place] tablet 52 daily. Medical Branch aspirin 81 2020-0 Yes 81mg Take 81 mg U nivers mg chewable 3-03 by mouth ity of tablet 23:00: daily. [place] [address] Medical Branch atorvastati 2020-0 Yes 40mg Take [...] [place] mg 00 on Thu Medical 01/16/20 at Branch 2100, Until Discontinu ed, Routine ranolazine 2019-0 2020- No [id number] 500mg Take 1 Univers 500 mg 12 01-16- tablet by ity of hr tablet 00:00: 04:59 mouth [place] 00 :00 every 12 Medical (twelve) Branch hours for 30 days. ranolazine 2020-0 2020- No [id number] 500mg Take 1 Univers 500 mg 12 01-16- tablet by ity of hr tablet 00:00: 04:59 mouth [place] 00 :00 every 12 Medical (twelve) Branch hours for 30 days. ranolazine 2020-0 2020- No [id number] 500mg Take 1 Univers 500 mg 12 01-16- tablet by ity of hr tablet 00:00: 04:59 mouth [place] 00 :00 every 12 Medical (twelve) Branch hours for 30 days. ranolazine 2020-0 2020- No [id number] 500mg Take 1 Univers 500 mg 12 [...] First dose Medical on [facility] Branch 01/16/20 at 0900, Until Discontinu ed, Routine aspirin 2020-0 Yes 81mg 81 mg, Univers chewable 01-15 Oral, ity of tablet 81 15:00: DAILY, [place] mg 00 First dose Medical on [facility] Branch 01/16/20 at 0900, Until Discontinu ed, Routine metoprolol 2020-0 Yes 12.5mg 12.5 mg, U nivers tartrate 01-15 Oral, BID, ity o f (LOPRESSOR) 14:00: First dose [place] tablet 12.5 00 on [facility] Medica l mg 01/16/20 at Branch 0800, Until Discontinu ed, Routine Sliding 2020-0 Yes Subcutaneo Univ ers Scale 01-15 us, Q6H, ity of Insulin-Reg 12:00: First dose [place] ular + Fsbg 00 on [facility] Medica l Testing 01/16/20 at Branch 0600, [...] IV ity of (D50W) 10:52: Push, PRN, [place] injection 33 Starting Medica l 25 mL [facility] 01/16/20 Branch at 0452, Until Discontinu ed, [...] IV Push, ity of (PF)) 07:55: Q6HPRN, [place] injection 4 01 Starting Medi birdie mg 01/16/20 Branch at 0155, Until Discontinu ed, Routine, Nausea and Vomiting (N/V) morpHINE 2019-0 2020- No 2mg 2 mg, Slow Un mel injection 2 01-15 03-03 IV Push, ity of mg 07:54: 07:53 Q6HPRN, [place] 55 :55 Starting Medical 01/16/20 Branch at 0154, Until 01/17/20 at 0153, Routine, Pain (scale 7-10) traMADol 2019-0 2020- No 50mg 50 mg, Univer s (ULTRAM) 01-15 03-04 Oral, ity of tablet 50 07:54: 07:53 Q8HPRN, [facility] [place] [facility] Starting Medical [facility] 01/16/20 Branch at 0154, Until 01/18/20 at 0153, Routine, Pain (scale 4-6) acetaminoph 2019-0 Yes 650mg 650 mg, Un mel en 01-15 Oral, ity of (TYLENOL) 07:54: Q6HPEdison, [place] tablet 650 44 Starting Medic al mg [facility] 01/16/20 Branch at 0154, Until Discontinu ed, Routine, Pain (scale 1-3) insulin 2019-0 2020- No 8U 8 Units, Unive rs regular 01-15- Slow IV ity of human 06:45: 05:40 [facility], [place] (HUMULIN R) 00 :00 ONCE, 1 Medic al injection 8 dose, [facility] Units 01/16/20 at 0045, STAT heparin 2020-0 Yes 1000U/h 1,000 Univer s 25,000 3-02 Units/hr ity of unit/250 mL 06:00: (10 [place] (Premixed 00 mL/hr), IV Medi birdie Bag) [...] 01/15/20 at 2345, ADAMA furosemide 2018-11 Yes [id number] 40mg Take 1 Univers 40 mg 0-26 tablet by ity of tablet 00:00: mouth [place] 00 daily. Medical Branch furosemide 2018-11 Yes [id number] 40mg Take 1 Univers 40 mg 0-26 tablet by ity of tablet 00:00: mouth [place] 00 daily. Medical Branch furosemide 2018-11 Yes [id number] 40mg Take 1 Univers 40 mg 0-26 tablet by ity of tablet 00:00: mouth [place] 00 daily. Medical Branch furosemide 2018-11 Yes [id number] 40mg Take 1 Univers 40 mg 0-26 tablet by ity of tablet 00:00: mouth [place] 00 daily. Medical Branch furosemide 2018- 2020- No [id number] 40mg Take 1 Univers 40 mg 0-26 04-17 tablet by ity of tablet 00:00: 00:00 mouth [place] 00 :00 daily. Medical Branch magnesium 2018-11 Yes [id number] 400mg Take 400 Univers oxide 420 0-23 mg by ity of mg Tab 00:00: mouth [place] 00 daily. Medical Branch magnesium 2018-11 Yes [id number] 400mg Take 400 Univers oxide 420 0-23 mg by ity of mg Tab 00:00: mouth [place] 00 daily. Medical Branch magnesium 2018- Yes [id number] 400mg Take 400 Univers oxide 420 0-23 mg by ity of mg Tab 00:00: mouth [place] 00 daily. Medical Branch magnesium 2019- Yes [id number] 400mg Take 400 Univers oxide 420 0-23 mg by ity of mg Tab 00:00: mouth [place] 00 daily. Medical Branch magnesium 2019- Yes [id number] 400mg Take 400 Univers oxide 420 0-23 mg by ity of mg Tab 00:00: mouth [place] 00 daily. Medical Branch magnesium 2019- Yes [id number] 400mg Take 400 Univers oxide 420 0-23 mg by ity of mg Tab 00:00: mouth [place] 00 daily. Medical Branch magnesium 2018- 2020- No [id number] 400mg Take 400 Univers oxide 420 0-23 04-22 mg by ity of mg Tab 00:00: 00:00 mouth [place] 00 :00 daily. Medical Branch Insulin 2019-0 Yes [id number] 30U inject 30 Univers Glargine 9-11 Units ity of 100 unit/mL 00:00: under the [place] (3 mL) 00 skin every Medical injection morning. Branch Insulin 2018-0 Yes [id number] 30U inject 30 Univers Glargine 9-11 Units ity of 100 unit/mL 00:00: under the [place] (3 mL) 00 skin every Medical injection morning. Branch Insulin 2018-0 Yes [id number] 30U inject 30 Univers Glargine 9-11 Units ity of 100 unit/mL 00:00: under the [place] (3 mL) 00 skin every Medical injection morning. Branch Insulin 2018- Yes [id number] 30U inject 30 Univers Glargine 9-11 Units ity of 100 unit/mL 00:00: under the [place] (3 mL) 00 skin every Medical injection morning. Branch Insulin 2018- Yes [id number] 30U inject 30 Univers Glargine 9-11 Units ity of 100 unit/mL 00:00: under the [place] (3 mL) 00 skin every Medical injection morning. Branch Insulin 2018- Yes [id number] 30U inject 30 Univers Glargine 9-11 Units ity of 100 unit/mL 00:00: under the [place] (3 mL) 00 skin every Medical injection morning. Branch Insulin 2018-0 Yes [id number] 30U inject 30 Univers Glargine 9-11 Units ity of 100 unit/mL 00:00: under the [place] (3 mL) 00 skin every Medical injection morning. Branch Insulin 0 2020- No [id number] 30U inject 30 Univers Glargine 9-11 04-22 [...] the skin. [place] 43 Medical Branch Cholecalcif 0 Yes Take by Un mel ann, 5-10 mouth. ity of Vitamin D3, 15:26: [place] 2,000 unit 43 Medical capsule Branch metoprolol 0 Yes 12.5mg Take 12.5 Univers tartrate 5-10 mg by ity of 12.5 mg 15:26: mouth 2 [place] [address] (two) Medical times Branch daily. MULTIVITAMI 0 Yes Take by Un mel N ORAL 5-10 mouth. ity of 15:26: [place] [address] Medical Branch thiamine 0 Yes 100mg Take 100 Univ ers (VITAMIN 5-10 mg by ity of B-1) 100 mg 15:26: mouth [place] tablet 43 daily. Medical Branch aspirin 81 0 Yes 81mg Take 81 mg U nivers mg chewable 5-10 by mouth ity of tablet 15:26: daily. [place] [address] Medical Branch atorvastati 0 Yes 40mg Take 40 mg Univers n 40 mg 5-10 by mouth ity of tablet 15:26: at [place] 43 bedtime. Medical Branch furosemide 0 Yes 40mg Take 40 mg U nivers 40 mg 5-10 by mouth ity of tablet 15:26: daily. [place] [address] Medical Branch NaCl 0.9% 0 Yes 10mL [...] mg under ity of 15:26: the skin. [place] [address] Medical Branch Cholecalcif 0 Yes Take by Un mel ann, 5-10 mouth. ity of Vitamin D3, 15:26: [place] 2,000 unit 43 Medical capsule Branch metoprolol 0 Yes 12.5mg Take 12.5 Univers tartrate 5-10 mg by ity of 12.5 mg 15:26: mouth 2 [place] [address] (two) Medical times Branch daily. MULTIVITAMI 2019-0 Yes Take by Un mel N ORAL 5-10 mouth. ity of 15:26: [place] [address] Medical Branch thiamine 2018-0 Yes 100mg Take 100 Univ ers (VITAMIN 5-10 mg by ity of B-1) 100 mg 15:26: mouth [place] tablet 43 daily. Medical Branch aspirin 81 2019-0 Yes 81mg Take 81 mg U nivers mg chewable 5-10 by mouth ity of tablet 15:26: daily. [place] [address] Medical Branch atorvastati 2018-0 Yes 40mg Take 40 mg Univers n 40 mg 5-10 by mouth ity of tablet 15:26: at [place] 43 bedtime. Medical Branch furosemide [id number] Yes 40mg Take 40 mg U nivers 40 mg 5-10 by mouth ity of tablet 15:26: daily. [place] [address] Medical Branch NaCl 0.9% 2019-0 Yes 10mL Inject 10 Uni vers (NS) Soln 5-10 mL ity of 10 mL with 15:26: intravenou [place] sodium 43 sly once Medical chloride now. Branch 2.5 mEq/mL SolP 17.125 mEq insulin 2018-0 Yes [id number] 4U inject 4 U nivers lispro, 5-10 Units ity of human, 100 00:00: under the [place] unit/mL 00 skin 3 Medical injection (three) Branch times daily before meals. insulin 2018-0 Yes [id number] 4U inject 4 U nivers lispro, 5-10 Units ity of human, 100 00:00: under the [place] unit/mL 00 skin 3 Medical injection (three) Branch times daily before meals. insulin 2019-0 Yes [id number] 4U inject 4 U nivers lispro, 5-10 Units ity of human, 100 00:00: under the [place] unit/mL 00 skin 3 Medical injection (three) Branch times daily before meals. insulin 2019-0 Yes [id number] 4U inject 4 U nivers lispro, 5-10 Units ity of human, 100 00:00: under the [place] unit/mL 00 skin 3 Medical injection (three) Branch times daily before meals. insulin 2019-0 Yes [id number] 4U inject 4 U nivers lispro, 5-10 Units ity of human, 100 00:00: under the [place] unit/mL 00 skin 3 Medical injection (three) Branch times daily before meals. insulin 2019-0 Yes [id number] 4U inject 4 U nivers lispro, 5-10 Units ity of human, 100 00:00: under the [place] unit/mL 00 skin 3 Medical injection (three) Branch times daily before meals. Insulin 2018-0 Yes [id number] 18U inject Uni vers Glargine 5-10 18-24 ity of 100 unit/mL 00:00: Units [place] (3 mL) 00 under the Medical injection skin every Bran ch morning. insulin 2018-0 Yes [id number] 4U inject 4 U nivers lispro, 5-10 Units ity of human, 100 00:00: under the [place] unit/mL 00 skin 3 Medical injection (three) Branch times daily before meals. insulin 2018-0 Yes [id number] 4U inject 4 U nivers lispro, 5-10 Units ity of human, 100 00:00: under the [place] unit/mL 00 skin 3 Medical injection (three) Branch times daily before meals. insulin 2018-0 Yes [id number] 4U inject 4 U nivers lispro, 5-10 Units ity of human, 100 00:00: under the [place] unit/mL 00 skin 3 Medical injection (three) Branch times daily before meals. insulin 2018-0 Yes [id number] 4U inject 4 U nivers lispro, 5-10 Units ity of human, 100 00:00: under the [place] unit/mL 00 skin 3 Medical injection (three) Branch times daily before meals. insulin 2018-0 Yes [id number] 4U inject 4 U nivers lispro, 5-10 Units ity of human, 100 00:00: under the [place] unit/mL 00 skin 3 Medical injection (three) Branch times daily before meals. insulin 2020- No [id number] 4U inject 4 Univers lispro, 5-10 05-07 Units ity of human, 100 00:00: 00:00 under the [place] unit/mL 00 :00 skin 3 Medical injection (three) Branch times daily before meals. insulin 2018- 2020- No [id number] 4U inject 4 Univers lispro, 5-10 05-07 Units ity of human, 100 00:00: 00:00 under the [place] unit/mL 00 :00 skin 3 Medical injection (three) Branch times daily before meals. Insulin 2019- No [id number] 18U inject Un mel Glargine 5-08 24- 18-24 ity of 100 unit/mL 00:00: 00:00 Units [place] (3 mL) 00 :00 under the Medical injection skin every Bran ch morning. folic Yes Take by Univers acid/vit B 3-08 mouth. ity of complex and 16:39: [facility] (B 29 Medical COMPLEX-VIT Branch RAZA C-FOLIC ACID ORAL) potassium Yes 20meq Take 20 Univ ers chloride 20 3-08 mEq by ity of mEq packet 16:39: mouth [place] 29 daily. Medical Branch folic Yes Take by Univers acid/vit B 3-08 mouth. ity of complex and 16:39: [facility] (B 29 Medical COMPLEX-VIT Branch RAZA C-FOLIC ACID ORAL) potassium Yes 20meq Take 20 Univ ers chloride 20 3-08 mEq by ity of mEq packet 16:39: mouth [place] [address] daily. Medical Branch Potassium Potassium Yes Anneliese [...] Yes Anneliese [address] [facility]ics Isosorbide Isosorbide Yes Anneliese [address] [facility] Jose Antonio Brady Yes Anneliese 1 capsule [facility] Immunizations Ordered Filled Immunization Date Status Comments [facility] e Immunization Name Name SARS-COV-2 COVID-19 2021-09-16 Completed Unive rsity of MODERNA VACCINE 00:00:00 [facility] SARS-COV-2 COVID-19 2021-09-16 Completed Unive rsity of MODERNA VACCINE 00:00:00 [facility] SARS-COV-2 COVID-19 2021-09-16 Completed Unive rsity of MODERNA VACCINE 00:00:00 [facility] SARS-COV-2 COVID-19 2021-08-17 Completed Unive rsity of MODERNA VACCINE 00:00:00 [facility] Influenza High Dose 2021-08-17 Completed Unive rsity of 00:00:00 [facility] SARS-COV-2 COVID-19 2021-08-17 Completed Unive rsity of MODERNA VACCINE 00:00:00 [facility] Influenza High Dose 2021-08-17 Completed Unive rsity of 00:00:00 [facility] SARS-COV-2 COVID-19 2021-08-17 Completed Unive rsity of MODERNA VACCINE 00:00:00 [facility] Influenza High Dose 2021-08-17 Completed Unive rsity of 00:00:00 [facility] Zoster(Zostavax)( 2020-09-14 Completed Unive rsity of ingles) 00:00:00 [facility] Zoster(Zostavax)( 2020-09-14 Completed Unive rsity of ingles) 00:00:00 [facility] Zoster(Zostavax)( 2020-09-14 Completed Unive rsity of ingles) 00:00:00 [facility] Influenza High Dose 2020-07-13 Completed Unive rsity of 00:00:00 [facility] Influenza High Dose 2020-07-13 Completed Unive rsity of 00:00:00 [facility] Influenza High Dose 2020-07-13 Completed Unive rsity of 00:00:00 [facility] Influenza High Dose 2019-09-15 Completed Unive rsity of 00:00:00 [facility] Influenza High Dose 2019-09-15 Completed Unive rsity of 00:00:00 [facility] Influenza High Dose 2019-09-15 Completed Unive rsity of 00:00:00 [facility] Influenza Virus 2018-09-09 Completed Universit y of Vaccine 00:00:00 [facility] Influenza Virus 2018-09-09 Completed Universit y of Vaccine 00:00:00 [facility] Influenza Virus 2018-09-09 Completed Universit y of Vaccine 00:00:00 [facility] Influenza Virus 2018-09-09 Completed Universit y of Vaccine 00:00:00 [facility] Influenza Virus 2018-09-09 Completed Universit y of Vaccine 00:00:00 [facility] Influenza Virus 2018-09-09 Completed Universit y of Vaccine 00:00:00 [facility] Influenza Virus 2018-09-09 Completed Universit y of Vaccine 00:00:00 [facility] Influenza Virus 2018-09-09 Completed Universit y of Vaccine 00:00:00 [facility] Influenza Virus 2018-09-09 Completed Universit y of Vaccine 00:00:00 [facility] Influenza Virus 2018-09-09 Completed Universit y of Vaccine 00:00:00 [facility] Influenza Virus 2018-09-09 Completed Universit y of Vaccine 00:00:00 [facility] Influenza Virus 2018-09-09 Completed Universit y of Vaccine 00:00:00 [facility] Influenza Virus 2018-09-09 Completed Universit y of Vaccine 00:00:00 [facility] Influenza Virus 2018-09-09 Completed Universit y of Vaccine 00:00:00 [facility] Influenza Virus 2018-09-09 Completed Universit y of Vaccine 00:00:00 [facility] Influenza Virus 2018-09-09 Completed Universit y of Vaccine 00:00:00 [facility] Influenza Virus 2018-09-09 Completed Universit y of Vaccine 00:00:00 [facility] Influenza Virus 2018-09-09 Completed Universit y of Vaccine 00:00:00 [facility] Influenza Virus 2018-09-09 Completed Universit y of Vaccine 00:00:00 [facility] Influenza Virus 2018-09-09 Completed Universit y of Vaccine 00:00:00 [facility] Influenza Virus 2018-09-09 Completed Universit y of Vaccine 00:00:00 [facility] Pneumococcal 2016-11-02 Completed University o f Polysaccharide, [...] 17:17:00 109 mm[Hg] Univer sity of pressure [facility] Diastolic blood 2021-11-02 17:17:00 67 [facility]Hg] [facility] 2021-11-02 17:17:00 84 /min [facility] Body temperature 2021-11-02 17:17:00 36.44 Priyanka [facility] 2021-11-02 17:17:00 18 /min [facility] Oxygen saturation in 2021-11-02 17:17:00 95 /min [facility] Arterial blood by [facility] Pulse oximetry Branch Body weight 2021-11-02 09:17:00 79.969 kg [facility] BMI 2021-11-02 09:17:00 27.61 kg/m2 [facility] Body height 2021-10-31 05:46:00 170.2 cm [facility] Systolic blood 2021-04-25 22:36:00 118 mm[Hg] Univer sity of pressure [facility] Diastolic blood 2021-04-25 22:36:00 70 mm[Hg] Unive rsity of [facility] Heart rate 2021-04-25 22:36:00 68 /min [facility] Respiratory rate 2021-04-25 22:36:00 18 /min Univ ersity of [place] [facility] Oxygen saturation in 2021-04-25 22:36:00 99 /min University of Arterial blood by [place] [facility] Pulse oximetry Branch Body temperature 2021-04-25 15:42:00 36.44 Priyanka Univ ersity of [place] [facility] Body weight 2021-04-25 15:42:00 81.647 kg Universi ty of [place] [facility] BMI 2021-04-25 15:42:00 27.37 kg/m2 Universi ty of [place] [facility] Systolic blood 2020-06-26 10:00:00 124 mm[Hg] Univer sity of pressure [place] [facility] Diastolic blood 2020-06-26 10:00:00 78 mm[Hg] Unive rsity of pressure [place] [facility] Respiratory rate 2020-06-26 10:00:00 18 /min Univ ersity of [place] [facility] Oxygen saturation in 2020-06-26 10:00:00 98 /min University of Arterial blood by [place] Medi birdie Pulse oximetry Branch Heart rate 2020-06-26 08:56:00 98 /min Universi ty of [place] [facility] Body temperature 2020-06-26 08:56:00 37.17 Priyanka Univ ersity of [place] [facility] Body weight 2020-06-26 08:56:00 74.844 kg Universi ty of [place] [facility] BMI 2020-06-26 08:56:00 25.09 kg/m2 Universi ty of [place] [facility] Systolic blood 2020-06-26 10:00:00 124 mm[Hg] Univer sity of pressure [place] [facility] Diastolic blood 2020-06-26 10:00:00 78 mm[Hg] Unive rsity of pressure [place] [facility] Respiratory rate 2020-06-26 10:00:00 18 /min Univ ersity of [place] [facility] Oxygen saturation in 2020-06-26 10:00:00 98 /min University of Arterial blood by [place] Medi birdie Pulse oximetry Branch Heart rate 2020-06-26 08:56:00 98 /min Universi ty of [place] [facility] Body temperature 2020-06-26 08:56:00 37.17 Priyanka Univ ersity of [place] [facility] Body weight 2020-06-26 08:56:00 74.844 kg Universi ty [facility] [place] [facility] BMI 2020-06-26 08:56:00 25.09 kg/m2 [facility]i ty [facility] [place] [facility] Systolic blood 2020-05-24 15:47:29 166 mm[Hg] Univer sity of pressure [place] [facility] Diastolic blood 2020-05-24 15:47:29 89 mm[Hg] Unive rsity of pressure [place] [facility] Heart rate 2020-05-24 15:47:29 86 /min Universi ty [facility] [place] [facility] Respiratory rate 2020-05-24 15:47:29 16 /min Univ ersity of [place] [facility] Oxygen saturation in 2020-05-24 15:47:29 97 /min University of Arterial blood by [facility] Pulse oximetry Branch Body temperature 2020-05-24 11:44:00 36.94 Priyanka [facility] [place] [facility] Body height 2020-05-24 11:44:00 172.7 cm [facility] Body weight 2020-05-24 11:44:00 74.844 kg [facility] BMI 2020-05-24 11:44:00 25.09 kg/m2 [facility] Systolic blood 2020-05-24 15:47:29 166 mm[Hg] [facility] [place] [facility] Diastolic blood 2020-05-24 15:47:29 89 mm[Hg] [facility] [place] [facility] Heart rate 2020-05-24 15:47:29 86 /min [facility] Respiratory rate 2020-05-24 15:47:29 16 /min [facility] [place] [facility] Oxygen saturation in 2020-05-24 15:47:29 97 /min [facility] of Arterial blood by [facility] Pulse oximetry Branch Body temperature 2020-05-24 11:44:00 36.94 Priyanka [facility] [place] [facility] Body height 2020-05-24 11:44:00 172.7 cm [facility] Body weight 2020-05-24 11:44:00 74.844 kg [facility] BMI 2020-05-24 11:44:00 25.09 kg/m2 [facility] Systolic blood 2020-03-24 02:31:00 127 mm[Hg] [facility] [place] [facility] Diastolic blood 2020-03-24 02:31:00 72 mm[Hg] [facility] [place] [facility] Heart rate 2020-03-24 02:31:00 69 /min [facility] Body temperature 2020-03-24 02:31:00 36.39 Priyanka [facility] [place] [facility] Respiratory rate 2020-03-24 02:31:00 18 /min [facility] [place] [facility] Oxygen saturation in 2020-03-24 02:31:00 97 /min [facility] of Arterial blood by [facility] Pulse oximetry Branch Systolic blood 2020-03-23 21:35:00 100 mm[Hg] [facility] [place] [facility] Diastolic blood 2020-03-23 21:35:00 59 mm[Hg] [facility] [place] [facility] Heart rate 2020-03-23 21:35:00 79 /min [facility] Body temperature 2020-03-23 21:35:00 36.78 Priyanka [facility] [place] [facility] Respiratory rate 2020-03-23 21:35:00 18 /min [facility] Oxygen saturation in 2020-03-23 21:35:00 99 /min [facility] Arterial blood by [facility] Pulse oximetry Branch Body weight 2020-03-23 09:41:00 76.613 kg [facility] BMI 2020-03-23 09:41:00 26.45 kg/m2 [facility] Body height 2020-03-23 03:43:00 170.2 cm [facility] Systolic blood 2020-03-21 20:55:00 128 mm[Hg] [facility] [place] [facility] Diastolic blood 2020-03-21 20:55:00 61 mm[Hg] [facility] [place] [facility] Heart rate 2020-03-21 20:55:00 75 /min [facility] Respiratory rate 2020-03-21 20:55:00 10 /min [facility] [place] [facility] Oxygen saturation in 2020-03-21 20:55:00 98 /min [facility] of Arterial blood by [facility] Pulse oximetry Branch Body temperature 2020-03-21 20:03:00 37.83 Priyanka [facility] Body height 2020-03-21 20:03:00 170.2 cm [facility] Body weight 2020-03-21 20:03:00 76.204 kg [facility] BMI 2020-03-21 20:03:00 26.31 kg/m2 [facility] Systolic blood 2020-03-07 20:50:00 118 mm[Hg] [facility] [place] [facility] Diastolic blood 2020-03-07 20:50:00 65 mm[Hg] [facility] [place] [facility] Heart rate 2020-03-07 20:50:00 85 /min [facility] [place] [facility] Body temperature 2020-03-07 20:50:00 36.39 Priyanka [facility] [place] [facility] Respiratory rate 2020-03-07 20:50:00 18 /min [facility] [place] [facility] Oxygen saturation in 2020-03-07 20:50:00 95 /min [facility] Arterial blood by [place] Pulse oximetry Branch Body height 2020-03-05 02:35:00 172.7 cm [facility] Body weight 2020-03-05 02:35:00 73.483 kg [facility] BMI 2020-03-05 02:35:00 24.63 kg/m2 [facility] [place] [facility] Systolic blood 2020-03-02 15:49:00 122 mm[Hg] [facility] [place] [facility] Diastolic blood 2020-03-02 15:49:00 81 mm[Hg] [facility] [place] [facility] Heart rate 2020-03-02 15:49:00 89 /min [facility] [place] [facility] Body temperature 2020-03-02 15:49:00 37.06 Priyanka [facility] [place] [facility] Respiratory rate 2020-03-02 15:49:00 19 /min [facility] [place] [facility] Oxygen saturation in 2020-03-02 15:49:00 96 /min [facility] Arterial blood by [place] [employer] Pulse oximetry Branch Body height 2020-03-01 00:54:00 170.2 cm [facility] Body weight 2020-03-01 00:54:00 76.975 kg [facility] BMI 2020-03-01 00:54:00 26.58 kg/m2 [facility] Systolic blood 2020-01-17 21:08:00 116 mm[Hg] [facility] [place] [facility] Diastolic blood 2020-01-17 21:08:00 78 mm[Hg] [facility] Heart rate 2020-01-17 21:08:00 88 /min [facility] Body temperature 2020-01-17 21:08:00 36.72 Priyanka [facility] Respiratory rate 2020-01-17 21:08:00 18 /min [facility] Oxygen saturation in 2020-01-17 21:08:00 98 /min [facility] blood by [facility] Pulse oximetry [place] Body height 2020-01-16 06:21:00 172.7 cm [facility] Body weight 2020-01-16 04:35:00 83.462 kg [facility] BMI 2020-01-16 04:35:00 27.98 kg/m2 [facility] Procedures Procedure Date / Time Performing Clinician Source Performed EXTERNAL PROVIDER RECORDS 2021-11-19 06:01:00 Doctor Unassigned, [facility] Roxana [facility] POCT GLUCOSE (AUTOMATED) 2021-11-02 22:49:00 Aida Shah [facility] POCT GLUCOSE (AUTOMATED) 2021-11-02 17:06:00 Aida Shah [facility] POCT GLUCOSE (AUTOMATED) 2021-11-02 13:30:00 Aida Shah [facility] TROPONIN I 2021-11-02 09:29:00 Alexandra Hdz [facility] BASIC METABOLIC PANEL 2021-11-02 09:29:00 Sridhar Gordon [facility] (NA, K, CL, CO2, GLUCOSE, Medica l Branch BUN, CREATININE, CA) CBC WITH DIFF 2021-11-02 09:29:[address] [facility] N-TERMINAL PRO-BNP 2021-11-02 09:29:00 Alexandra Hdz [facility] POCT GLUCOSE (AUTOMATED) 2021-11-02 01:27:00 Aida Shah [facility] POCT GLUCOSE (AUTOMATED) 2021-11-01 17:37:00 Aida Shah [facility] POCT GLUCOSE (AUTOMATED) 2021-11-01 13:40:00 AlyssaDenilsonAida Nilda [facility] POCT GLUCOSE (AUTOMATED) 2021-11-01 01:10:00 AlyssaKeerthii [facility] POCT GLUCOSE (AUTOMATED) 2021-10-31 22:28:00 AlyssaKeerthii [facility] POCT GLUCOSE (AUTOMATED) 2021-10-31 17:29:00 [facility] 2021-10-31 16:25:00 Alexandra Hdz [facility] TRANSTHORACIC ECHO (TTE) 2021-10-31 15:53:00 Alexandra Hdz [facility] COMPLETE W/ CONTRAST Medical [facility] POCT GLUCOSE (AUTOMATED) 2021-10-31 13:39:00 Martha Drake [facility] TROPONIN I 2021-10-31 10:08[facility] 2021-10-31 [facility] ([facility], K, CL, CO2, GLUCOSE, Medica l Branch BUN, CREATININE, CA) LIPID PANEL ([id number])(TOTAL 2021-10-31 10:08:00 Alexandra Hdz [facility] TRIGLYCERIDES, HDL) CBC WITH DIFF 2021-10-31 10:08:00 [facility] URINALYSIS 2021-10-31 10:08:00 [facility] N-TERMINAL PRO-BNP 2021-10-31 10:08:00 Alexandra Hdz [facility] TROPONIN I 2021-10-31 06:17:00 [facility] XR CHEST 1 VW 2021-10-31 01:30:[address] [facility] LIPASE 2021-10-31 01:25:00 Martha Drake [facility] TROPONIN I 2021-10-31 01:25:[address] [facility] COMP. METABOLIC PANEL 2021-10-31 01:25:00 Martha Drake [facility] ([id number]) Medical Branch CBC WITH DIFF 2021-10-31 01:25:[address] [facility] GLYCOSYLATED HEMOGLOBIN 2021-10-31 01:25:00 Sarah Adorno [facility] (A1C) [facility] PROTHROMBIN TIME / INR 2021-10-31 01:25:00 Martha Drake [facility] ACTIVATED PARTIAL 2021-10-31 01:25:00 Martha Drake [facility] JACEK [facility] N-TERMINAL PRO-BNP 2021-10-31 01:25:00 Martha Drake [facility] COVID-19 (ID NOW RAPID 2021-10-31 01:25:00 Martha Drake [facility] TESTING) Medical Branch LAB ONLY COVID 2021-10-31 01:25:00 Martha Drake [facility] INTERPRETATION [facility] HB ECG ROUTINE & RHYTHM 2021-10-31 01:20:03 Martha Drake [facility] STRIP [facility] URINALYSIS 2021-04-25 21:01:00 Nallely Zhao [facility] XR LUMBAR SPINE 2 VW 2021-04-25 18:41:00 Nallely Zhao [facility] XR HIPS 2 VW LEFT 2021-04-25 18:41:00 Nallely [facility] CONSENT/REFUSAL FOR 2021-04-25 15:43:06 Doctor Unassigned, [facility] DIAGNOSIS AND TREATMENT [place] [facility] CT CERVICAL SPINE WO 2020-06-26 09:35:01 Martha Drake [facility] CT LUMBAR SPINE WO 2020-06-26 09:35:01 Martha Drake [facility] CT THORACIC SPINE WO 2020-06-26 09:35:01 Martha Drake [facility] UNILATERAL DUPLEX SCAN OF 2020-05-24 14:53:40 [facility] Medical B ranch XR ANKLE 3+ VW LEFT 2020-05-24 13:22:26 Charanjit Heck [facility] HEPATIC FUNCTION PANEL 2020-05-24 13:13:00 Charanjit Heck [facility] ([id number]) (ALB,T.PRO,BILI Medical Branch T,BU/BC,ALT,AST,ALK PHOS) BASIC METABOLIC PANEL 2020-05-24 13:13:00 Charanjit Heck [facility] (NA, K, CL, CO2, GLUCOSE, Medica l Branch BUN, CREATININE, CA) CBC WITH DIFFERENTIAL 2020-05-24 13:13:00 Charanjit Heck [facility] PROTHROMBIN TIME / INR 2020-05-24 13:13:00 Charanjit Heck [facility] ACTIVATED PARTIAL 2020-05-24 13:13:00 Charanjit Heck [facility] NOTICE OF PRIVACY 2020-05-24 11:38:26 Doctor Unassigned, [facility] PRACTICES [place] [facility] [place] CONSENT/REFUSAL FOR 2020-05-24 11:35:52 Doctor Unassigned, [facility] DIAGNOSIS AND TREATMENT [place] Medical Branch POCT GLUCOSE (AUTOMATED) 2020-03-23 22:32:00 Jamel Flores [facility] POCT GLUCOSE (AUTOMATED) 2020-03-23 18:07:00 Jamel Flores [facility] POCT GLUCOSE (AUTOMATED) 2020-03-23 14:57:00 Jamel Flores [facility] ECHO ROUTINE W/DOPPLER 2020-03-23 13:33:57 Jerome [facility] COLOR [facility] EKG-12 LEAD 2020-03-23 12:56:59 Jamel Flores [facility] MAGNESIUM 2020-03-23 11:15:00 Jerome [facility] TROPONIN I 2020-03-23 11:15:00 Jerome [facility] BASIC METABOLIC PANEL 2020-03-23 11:15:00 Jerome [facility] (NA, K, CL, CO2, GLUCOSE, Medica l Branch BUN, CREATININE, CA) PROTHROMBIN TIME / INR 2020-03-23 11:15:00 Tereza Cano [facility] ACTIVATED PARTIAL 2020-03-23 11:15:00 Jerome [facility] EKG-12 LEAD 2020-03-23 07:51:19 Jamel Flores [facility] MAGNESIUM 2020-03-23 05:55:00 Jerome [facility] TROPONIN I 2020-03-23 05:55:00 Jeorme [facility] BASIC METABOLIC PANEL 2020-03-23 05:55:00 Jerome [facility] (NA, K, CL, CO2, GLUCOSE, Medica l Branch BUN, CREATININE, CA) LIPID PANEL ([id number])(TOTAL 2020-03-23 05:55:00 Tereza Caon [facility] CHOLESTEROL, [facility] TRIGLYCERIDES, HDL) PROTHROMBIN TIME / INR 2020-03-23 02:55:00 Sallie Eckert [facility] ACTIVATED PARTIAL 2020-03-23 02:55:00 Babar [facility] XR CHEST 2 VW 2020-03-23 01:52:37 Hayder Esteban [facility] CORONAVIRUS COVID-19 2020-03-23 00:50:00 Esteban Singletary [facility] TESTING [facility] FERRITIN SERUM 2020-03-22 23:36:00 Jerome [facility] TROPONIN I 2020-03-22 23:36:00 Esteban Singletary [facility] COMP. METABOLIC PANEL 2020-03-22 23:36:00 Hayder Esteban [facility] ([id number]) [facility] IRON PANEL 2020-03-22 23:36:00 Jerome [facility] CBC WITH DIFFERENTIAL 2020-03-22 23:36:00 Hayder Esteban [facility] N-TERMINAL PRO-BNP 2020-03-22 23:36:00 Esteban Singletary [facility] EKG-12 LEAD 2020-03-22 23:08:53 Singletary, [facility] EKG-12 LEAD 2020-03-22 23:08:15 Singletary, [facility] XR CHEST 1 VW 2020-03-21 20:42:[address] [facility] LACTIC ACID WHOLE BLOOD 2020-03-21 20:38:00 Myles Harry [facility] LIPASE 2020-03-21 20:19:[address] [facility] TROPONIN I 2020-03-21 20:19:[address] [facility] COMP. METABOLIC PANEL 2020-03-21 20:19:00 Myles Harry [facility] ([id number]) [facility] PROTHROMBIN TIME / INR 2020-03-21 20:19:00 Kamryn Myles [facility] N-TERMINAL PRO-BNP 2020-03-21 20:19:00 Myles Harry [facility] CORONAVIRUS COVID-19 2020-03-21 20:19:00 Kamryn Myles [facility] TESTING [facility] EKG-12 LEAD 2020-03-21 20:11:[address] [facility] POCT GLUCOSE (AUTOMATED) 2020-03-07 20:56:00 [facility] POCT GLUCOSE (AUTOMATED) 2020-03-07 15:34:00 Julio Cesar [facility] POCT GLUCOSE (AUTOMATED) 2020-03-07 12:56:00 Julio Cesar [facility] URIC ACID 2020-03-07 10:14:[address] [facility] TROPONIN I 2020-03-07 10:14:[address] [facility] BASIC METABOLIC PANEL 2020-03-07 10:14:00 [facility] (NA, K, CL, CO2, GLUCOSE, Medica l Branch BUN, CREATININE, CA) CBC WITH DIFFERENTIAL 2020-03-07 10:14:00 Edionwe, [facility] N-TERMINAL PRO-BNP 2020-03-07 10:14:00 [facility] 2020-03-06 21:16:00 AlicerosalioSarah [facility] POCT GLUCOSE (AUTOMATED) 2020-03-06 16:10:00 Edtylerrosalio [facility] POCT GLUCOSE (AUTOMATED) 2020-03-06 12:38:00 Edionrosalio [facility] TROPONIN I 2020-03-06 08:51:00 Lulu Harris [facility] BASIC METABOLIC PANEL 2020-03-06 08:51:00 Edconsuelo [facility] (NA, K, CL, CO2, GLUCOSE, Medica l Branch BUN, CREATININE, CA) CBC WITH DIFFERENTIAL 2020-03-06 08:51:00 Alicerosalio [facility] POCT GLUCOSE (AUTOMATED) 2020-03-06 01:16:00 Edconsuelo [facility] TROPONIN I 2020-03-05 23:25:00 Julio Cesar [facility] POCT GLUCOSE (AUTOMATED) 2020-03-05 21:14:00 Edconsuelo [facility] POCT GLUCOSE (AUTOMATED) 2020-03-05 16:39:00 Edtylerrosalio [facility] POCT GLUCOSE (AUTOMATED) 2020-03-05 12:47:00 Edconsuelo [facility] TROPONIN I 2020-03-05 09:50:00 Edconsuelo [facility] BASIC METABOLIC PANEL 2020-03-05 09:50:00 Edionrosalio [facility] (NA, K, CL, CO2, GLUCOSE, Medica l Branch BUN, CREATININE, CA) CBC WITH DIFFERENTIAL 2020-03-05 09:50:00 Julio Cesar [facility] EKG-12 LEAD 2020-03-05 00:36:54 Bobo Urrutia [facility] EKG-12 LEAD 2020-03-05 00:31:03 Bobo Urrutia [facility] CORONAVIRUS COVID-19 2020-03-05 00:03:00 Charanjit Heck [facility] TESTING [facility] XR CHEST 1 VW 2020-03-04 23:58:59 Charanjit Heck [facility] LIPASE 2020-03-04 23:29:00 Charanjit Heck [facility] TROPONIN I 2020-03-04 23:29:00 Umang Charanjit [facility] HEPATIC FUNCTION PANEL 2020-03-04 23:29:00 Charanjit Heck [facility] ([id number]) (ALB,T.PRO,BILI Medical Branch T,BU/BC,ALT,AST,ALK PHOS) BASIC METABOLIC PANEL 2020-03-04 23:29:00 Charanjit Heck [facility] (NA, K, CL, CO2, GLUCOSE, Medica l Branch BUN, CREATININE, CA) CBC WITH DIFFERENTIAL 2020-03-04 23:29:00 Charanjit Heck [facility] PROTHROMBIN TIME / INR 2020-03-04 23:29:00 Charanjit Heck [facility] ACTIVATED PARTIAL 2020-03-04 23:29:00 Umang [facility] THRMPLAS JACEK [facility] N-TERMINAL PRO-BNP 2020-03-04 23:29:00 Charanjit Heck [facility] EKG-12 LEAD 2020-03-04 23:15:42 Charanjit Heck [facility] EKG-12 LEAD 2020-03-04 23:10:23 Umang Charanjit [facility] EMERGENCY DEPARTMENT 2020-03-04 05:01:00 Doctor Unassigned, [facility] DOCUMENTS [place] [facility] POCT GLUCOSE (AUTOMATED) 2020-03-02 15:52:00 Lulu Harris [facility] POCT GLUCOSE (AUTOMATED) 2020-03-02 12:39:00 Lulu Harris [facility] MAGNESIUM 2020-03-02 08:57:00 Ivory Leon [facility] BASIC METABOLIC PANEL 2020-03-02 08:57:00 Ivory Leon [facility] (NA, K, CL, CO2, GLUCOSE, Medica l Branch BUN, CREATININE, CA) N-TERMINAL PRO-BNP 2020-03-02 08:57:00 Carolyn alek [facility] POCT GLUCOSE (AUTOMATED) 2020-03-01 20:39:00 Lulu Harris [facility] MAGNESIUM 2020-03-01 08:43:00 Lulu Harris [facility] TROPONIN I 2020-03-01 08:43:00 Carolyn [facility] BASIC METABOLIC PANEL 2020-03-01 08:43:00 Lulu Harris [facility] (NA, K, CL, CO2, GLUCOSE, Medica l Branch BUN, CREATININE, CA) CBC WITH DIFFERENTIAL 2020-03-01 08:43:00 Steven L[facility] N-TERMINAL PRO-BNP 2020-03-01 08:43:00 Carolyn [facility] VITAMIN B12, LEVEL 2020-03-01 03:49:00 Carolyn [facility] FOLATE 2020-03-01 03:49:00 Carolyn [facility] SEDIMENTATION RATE 2020-03-01 03:49:00 Carolyn [facility] POCT GLUCOSE (AUTOMATED) 2020-03-01 03:39:00 Lulu Harris [facility] PHOSPHORUS 2020-03-01 02:28:00 Lulu Harris [facility] URIC ACID 2020-03-01 02:28:00 Carolyn alek [facility] TROPONIN I 2020-03-01 02:28:00 Carolyn [facility] HEPATIC FUNCTION PANEL 2020-03-01 02:28:00 Ivory Leon [facility] ([id number]) (ALB,T.PRO,BILI Medical Branch T,BU/BC,ALT,AST,ALK PHOS) PROTHROMBIN TIME / INR 2020-03-01 02:28:00 Carolyn alek [facility] N-TERMINAL PRO-BNP 2020-03-01 02:28:00 Lulu Harris [facility] PROCALCITONIN 2020-03-01 02:28:00 Carolyn [facility] EKG-12 LEAD 2020-03-01 01:54:29 Carolyn [facility] EKG-12 LEAD 2020-02-29 23:16:21 Bobo Urrutia [facility] XR CHEST 1 VW COVID 2020-02-29 23:14:25 Bobo Urrutia [facility] EKG-12 LEAD 2020-02-29 23:13:50 Bobo Urrutia [facility] LACTIC ACID WHOLE BLOOD 2020-02-29 22:21:00 Bobo Urrutia [facility] CORONAVIRUS COVID-19 2020-02-29 22:20:[address] [facility] CREATINE KINASE 2020-02-29 22:14:00 Carolyn [facility] URIC ACID 2020-02-29 22:14:00 Carolyn [facility] LIPASE 2020-02-29 22:14:00 Bobo Urrutia [facility] MAGNESIUM 2020-02-29 22:14:00 Carolyn [facility] TROPONIN I 2020-02-29 22:14:00 Bobo Urrutia [facility] THYROID STIMULATING 2020-02-29 22:14:00 Carolyn [facility] HORMONE [facility] BASIC METABOLIC PANEL 2020-02-29 22:14:00 Bobo Urrutia [facility] (NA, K, CL, CO2, GLUCOSE, Medica l Branch BUN, CREATININE, CA) CBC WITH DIFFERENTIAL 2020-02-29 22:14:00 Bobo Urrutia [facility] GLYCOSYLATED HEMOGLOBIN 2020-02-29 22:14:00 Carolyn [facility] (A1C) [facility] N-TERMINAL PRO-BNP 2020-02-29 22:14:00 Carolyn alek [facility] EKG-12 LEAD 2020-02-29 21:59:12 Bobo Urrutia [facility] EKG-12 LEAD 2020-02-29 21:48:49 Bobo Urrutia [facility] EMERGENCY DEPARTMENT 2020-02-29 05:01:00 Doctor Unassigned, [facility] DOCUMENTS [place] [facility] POCT GLUCOSE (AUTOMATED) 2020-01-17 18:15:00 Julio Cesar [facility] TROPONIN I 2020-01-17 16:31:00 Edconsuelo [facility] ACTIVATED PARTIAL 2020-01-17 16:31:00 Ivory Leon [facility] POCT GLUCOSE (AUTOMATED) 2020-01-17 11:56:00 Julio Cesar [facility] TROPONIN I 2020-01-17 09:52:00 Julio Cesar [facility] BASIC METABOLIC PANEL 2020-01-17 09:52:00 [facility] (NA, K, CL, CO2, GLUCOSE, Medica l Branch BUN, CREATININE, CA) CBC WITH DIFFERENTIAL 2020-01-17 09:52:00 [facility] ACTIVATED PARTIAL 2020-01-17 09:52:00 Julio Cesar [facility] POCT GLUCOSE (AUTOMATED) 2020-01-16 23:59:00 Julio Cesar [facility] EKG-12 LEAD 2020-01-16 22:15:50 Julio Cesar [facility] TROPONIN I 2020-01-16 20:04:00 Julio Cesar [facility] ACTIVATED PARTIAL 2020-01-16 20:04:00 Ayo Scruggs [facility] POCT GLUCOSE (AUTOMATED) 2020-01-16 17:05:00 Julio Cesar [facility] POCT GLUCOSE (AUTOMATED) 2020-01-16 13:38:00 Julio Cesar [facility] TROPONIN I 2020-01-16 11:11:00 Julio Cesar [facility] LIPID PANEL ([id number])(TOTAL 2020-01-16 11:11:00 Edionwe, [facility] CHOLESTEROL, [facility] TRIGLYCERIDES, HDL) ACTIVATED PARTIAL 2020-01-16 11:11:00 [facility] 2020-01-16 05:48:18 Charanjit Heck [facility] XR CHEST 1 VW 2020-01-16 04:46:44 Charanjit Heck [facility] TROPONIN I 2020-01-16 04:38:00 Charanjit Heck [facility] HEPATIC FUNCTION PANEL 2020-01-16 04:38:00 Charanjit Heck [facility] ([id number]) (ALB,T.PRO,BILI Medical Branch T,BU/BC,ALT,AST,ALK PHOS) BASIC METABOLIC PANEL 2020-01-16 04:38:00 [facility] (NA, K, CL, CO2, GLUCOSE, Medica l Branch BUN, CREATININE, CA) CBC WITH DIFFERENTIAL 2020-01-16 04:38:00 Umang Charanjit [facility] GLYCOSYLATED HEMOGLOBIN 2020-01-16 04:38:00 [facility] (A1C[facility] PROTHROMBIN TIME / INR 2020-01-16 04:38:00 Charanjit Heck [facility] ACTIVATED PARTIAL 2020-01-16 04:38:[address] [facility] N-TERMINAL PRO-BNP 2020-01-16 04:38:00 Charanjit Heck [facility] EKG-12 LEAD 2020-01-16 04:37:48 Umang Charanjit [facility] EKG-12 LEAD 2020-01-16 04:35:35 Charanjit Heck [facility] AUTHORIZATION FOR RELEASE 2019-07-12 05:01:00 Doctor Unassigned, [facility] Encounters Start End Encounter Admission Attending Care Care Encounter Source Date/Time Date/Time Type Type Clinicians Facility Department ID 2021-12-16 Inpatient SERA Villavicencio OUTD [id number] [facility] 11:30:00 [id number] 2021-12-16 Outpatient STLMLC STLMLC [id number] [facility] 09[facility] 2021-12-11 Outpatient Lester [facility] [id number] 14:38:21 [facility] 2021-12-11 Outpatient Lester [facility] [id number] 11:50:18 [facility] 2021-09-16 Emergency [facility] [id number] Univers 00:23:34 ity of [facility] 2021-09-13 Emergency [facility] [id number] Univers 11:42:35 ity [facility] 2021-09-13 Emergency [facility] [id number] Univers 05:40:48 ity [facility] 2021-12-25 2021-12-25 Inpatient ATTAR, [facility] [id number] [place] 00:00:00 00:00:00 [facility] [address] 2021-12-19 2021-12-25 Inpatient LAUREN, [facility] [id number] [place] 00:00:00 00:00:00 JAYSON [address] 2021-12-24 2021-12-24 ambulatory [facility] [id number] [facility] St 00:00:00 00:00:00 [facility] 2021-12-20 2021-12-20 Inpatient ATTAR, [facility] [id number] 38 [place] 00:00:00 00:00:00 [facility] [address] 2021-12-17 2021-12-17 ambulatory [facility] [id number] [facility] 2021-12-16 2021-12-16 ambulatory [facility] [id number] [facility] 2021-11-19 2021-11-19 Orders Doctor JONES 1.2.840.114 [id number] Univers 00:00:00 00:00:00 Only Unassigned, ASHLEIGH 350.1.13.10 ity of [place] [facility] 4.2.7.2.686 [place] [phone] [facility] 009 Branch 2021-11-04 2021-11-04 Transition SHAREE Maria 1.2.840.114 [id number] Univers 00:00:00 00:00:00 of Care Supa GREWAL 350.1.13.10 [place] [id number] [facility] 403 Branch 2021-10-30 2021-11-02 Inpatient X ALYSSA [facility] [id number] Univers 19:14:00 18:15:00 AIDA ity of [facility] 2021-10-30 2021-11-02 [facility] 1.2.840. 114 [id number] Univers 19:14:00 18:15:00 Encounter Aida Shah 350.1.13.10 it[place] [phone] [facility] 081 Branch 2021-05-17 2021-05-17 Letter PcpROBERT 1.2.840.114 [id number] Univers 00:00:00 00:00:00 (Out) Patient ASHLEIGH 350.1.13.10 it y of [place] HOSP[place] [phone] [facility] 019 Branch 2021-04-25 2021-04-25 Emergency Cece, TRAUMA 1.2.448.250 [id number] Univers 10:43:00 17:38:00 [facility] 350.1.13.10 i ty [place] [phone] [facility] 014 Branch 2020-06-26 2020-06-26 Emergency [facility] 1.2.697.186 [id number] 03:50:00 06:45:00 Martha Cortez 350.1.13.10 [place] 4.2.7.2.686 [place] [id number] 084 2020-06-26 2020-06-26 Emergency [facility] 1.2.763.587 [id number] Univers 03:50:00 06:45:00 Martha Cortez 350.1.13.10 [place] [phone] [address] 2020-05-24 2020-05-24 Emergency [place], [facility] 1.2.312.096 [id number] 06:40:47 10:54:00 Charanjit Cortez 350.1.13.10 [place] 4.2.7.2.686 [place] [id number] [facility] 2020-05-24 2020-05-24 Emergency [facility] 1.2.178.476 [id number] [facility] 06:40:47 10:54:00 Charanjit Cortez 350.1.13.10 i ty [place] [id number] [address] 2020-03-29 2020-03-29 Letter Jamel Flores 1.2.840.114 [id number] 00:00:00 00:00:00 (Out) T Ashleigh 350.1.13.10 [facility] 4.2.7.2.686 [id number] [facility] 2020-03-29 2020-03-29 Letter Jamel Flores 1.2.840.114 [id number] Univers 00:00:00 00:00:00 (Out) T Ashleigh 350.1.13.10 it y of Hospital 4.2.7.2.686 [place] [phone] [address] 2020-03-26 2020-03-26 Transition Sharee George 1.2.840.114 [id number] 00:00:00 00:00:00 of Care Sherrell Grewal 350.1.13.10 [place] 4.2.7.2.686 [id number] [facility] 2020-03-26 2020-03-26 Transition Sharee George 1.2.840.114 [id number] [facility] 00:00:00 00:00:00 of Care Sherrell Grewal 350.1.13.10 it y [place] [phone] [address] 2020-03-22 2020-03-23 Emergency Sallie Eckert 1.2.840. 114 [id number] Univers 18:02:47 21:55:00 FloresJamel Ashleigh 350.1.13.10 ity of [facility] 4.2.7.2.686 [place] [id number] [facility] [address] [place] 2020-03-22 2020-03-23 Outpatient X [facility]AMEL [facility] [id number] Univers 18:02:47 21:55:00 ity [facility] 2020-03-21 2020-03-21 Emergency [facility] 1.2.840.114 [id number] Univers 15:02:08 17:16:00 Mylesazra Cortez 350.1.13.10 i ty [place] [phone] [facility] [address] [place] 2020-03-21 2020-03-21 [facility] [id number] Univers 15:02:08 17:16:00 MYLES [facility] 2020-03-13 2020-03-13 Outpatient Raju_P MMG MMG [id number] [place] 05:24:00 05:24:00 [facility] 2020-03-08 2020-03-08 Transition Sharee Cool 1.2.840.114 [id number] Univers 00:00:00 00:00:00 of Care Prema Grewal 350.1.13.10 i ty of [place] [id number] [facility] [address] [place] 2020-03-04 2020-03-07 [facility] Charanjit Heck [facility] 1.2.840.1 14 [id number] Univers 18:01:05 18:00:00 Encounter Sarah Adorno 350.1.13.10 ity of [place] [id number] [facility] [address] [place] 2020-03-04 2020-03-07 Inpatient X JULIO CESAR [facility] ZEFERINO [id number] Univers 18:01:05 18:00:00 SARAH leon [facility] 2020-03-03 2020-03-03 Transition SilvaSharee 1.2.840.114 [id number] Univers 00:00:00 00:00:00 of Care Isatu Grewal 350.1.13.10 it y of [id number] [address] 2020-02-29 2020-03-02 [facility] Renan Vinnie [facility] 1.2.840.11 [id number] Univers 16:53:09 12:18:00 Encounter Lulu Harris 350.1.13.10 ity of [place] [phone] [address] 2020-02-29 2020-03-02 Inpatient X STEVEN [facility] [id number] Univers 16:53:09 12:18:00 LULU leon [facility] 2020-02-15 2020-02-15 Outpatient R CHAVA [facility] [id number] Univers 11:30:00 11:30:00 ROSEMARY carolyn [facility] 2020-02-15 2020-02-15 [facility] 1.2.840.114 [id number] Univers 08:13:42 08:43:42 ne Visit Rosemary Cortez 350.1.13.10 it[place] of [place] [phone] Nj dical nal [address] [facility] 2020-01-18 2020-01-18 Transition Sharee Harvey 1.2.840.114 [id number] Univers 00:00:00 00:00:00 of Care Ana M Grewal 350.1.13.10 it y of [place] [id number] [address] 2020-01-15 2020-01-17 [facility] Charanjit Heck [facility] 1.2.840.1 14 [id number] Univers 22:33:37 16:58:00 Encounter Sarah Adorno 350.1.13.10 ity of [place] [phone] [address] 2020-01-15 2020-01-17 Outpatient X JULIO CESAR [facility] [id number] Univers 22:33:37 16:58:00 MERCY ity of [facility] 2019-10-07 2019-10-07 Outpatient Ko Connellt [id number] 10:48:00 10:48:00 [facility] Outpati ent [facility] 2019-10-05 2019-10-05 [place] [id number] 16:06:00 16:06:00 [facility] Outpat[facility] 2019-07-27 2019-07-27 Refill Chava PRCESAR 1.2.840.114 [id number] Univers 00:00:00 00:00:00 Rosemary Cortez 350.1.13.10 [place] [phone] Nj dical [facility] [address] [facility] 2019-07-12 2019-07-12 Outpatient Ko [place] [id number] 16:24:00 16:24:00 [facility] 2019-07-12 2019-07-12 Orders Doctor JONES 1.2.840.114 [id number] Univers 00:00:00 00:00:00 Only Unassigned, ASHLEIGH 350.1.13.10 ity of [place] [facility] 4.2.7.2.686 [place] [phone] [facility] 009 Branch 2019-07-06 2019-07-06 [place] [id number] 14:00:00 14:00:00 [facility] Clin[facility] Results Test Description Test Time Test Comments Results Result Comments Source SARS-CoV-2 (COVID-19) RNA [Presence] in Respiratory sp ecimen by 2021-12-20 07:04:48 ERI with probe detection Test Item Value Reference Range Interpretation Comme nts SARS-CoV-2 (COVID-19) RNA [Presence] in Respiratory Not detected No t-Detected specimen by ERI with probe detection (test code = 15339-7) 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 LEAD ROUTINE [id number] 22:37:57 Test Item Value Reference Range Interpretation Comments Lab Interpretation (test code = Abnormal 71118-9) [facility])2021-11-02 17:43:02 Test Item Value Reference Range Interpretation Comments POCT GLU (test code = 5685891420) 264 mg/dL 70-110 H Lab Interpretation (test code = Abnormal 00280-8) [facility] [id number] 15:07:47 Test Item Value Reference Interpretation Comments Range TROPONIN I (test 0.064 ng/mL See_Comment H [Automated code = 5422876332) message] The system which generated this result [...] biotin. Lab Interpretation Abnormal (test code = 79618-6) [facility] [id number] 15:04:26 Test Item Value Reference Range Interpretation Comments NT-proBNP (test code 800 pg/mL See_Comment H [Autom ated = 3946540125) message] The system which generated this result transmitted reference range : <=450. The reference range was not used to interpret this result as normal/abnormal . ALYSSA (test code = ALYSSA) Biotin has been reported to cause a negative bias, interpret results relative to patient's use of biotin. Lab Interpretation Abnormal (test code = 58734-3) [facility] GLUCOSE (AUTOMATED)2021-11-02 13:36:38 Test Item Value Reference Range Interpretation Comments POCT GLU (test code = 8665605027) 185 mg/dL 70-110 H Lab Interpretation (test code = Abnormal 30397-2) [facility] METABOLIC PANEL (NA, K, CL, CO2, GLUCOSE, BUN, CREATININE, CA)2021-11-02 10:26:43 Test Item Value Reference Range Interpretation Comments NA (test code = 136 mmol/L 135-145 7775519390) K (test code = 4.0 mmol/L 3.5-5.0 5244263646) CL (test code = 99 mmol/L 98-108 5001404261) CO2 TOTAL (test code = 27 mmol/L 23-31 8537970715) AGAP (test code = 2-16 6458080481) BUN (test code = 30 mg/dL 7-23 H 3619730794) GLUCOSE (test code = 165 mg/dL 70-110 H 2086336900) CREATININE (test code = 1.42 mg/dL 0.60-1.25 H 6106556865) CALCIUM (test code = 9.5 mg/dL 8.6-10.6 0173925439) eGFR (test code = mL/min/1.73m2 0489922404) ALYSSA (test code = ALYSSA) Association of [...] tests). Lab Interpretation Abnormal (test code = 87025-5) [facility] WITH [id number] 10:01:58 Test Item Value Reference Range Interpretation Comments WBC (test code = See_Comment [Automated 2690-2) message] The sy stem which generated this result transmitted reference range : 4.20 - 10.70 10*3/?L. The reference range was not used to interpret this result as normal/abnormal . RBC (test code = See_Comment L [Automated 009-8) message] The sy stem which generated this [...] RDW-SD (test code = 39.8 fL 38.5-51.6 53587-7) RDW-CV (test code = 11.5 % 12.1-15.4 L 788-0) PLT (test code = See_Comment [Automated 777-3) message] The sy stem which generated this result transmitted reference range : 150 - 328 10*3/ ?L. The reference r corey was not used to interpret this result as normal/abnormal . MPV (test code = 10.5 fL 9.8-13.0 03153-4) NRBC/100 WBC (test See_Comment [Automat ed code = 3175525516) message] The system which generated this result transmitted reference range : 0.0 - 10.0 /100 WBCs. The refer ence range was not u sed to interpret th is result as normal/abnormal . NRBC x10^3 (test code <0.01 See_Comment [Auto mated = 7875734029) message] The s ystem which generated this result transmitted reference range : 10*3/?L. The reference range was not used to interpret this result as normal/abnormal . GRAN MAT (NEUT) % 59.3 % (test code = 770-8) IMM GRAN % (test code 0.30 % = 2683042704) LYMPH % (test code = 25.0 % 736-9) MONO % (test code = 10.7 % 5905-5) EOS % (test code = 4.1 % 713-8) BASO % (test code = 0.6 % 706-2) GRAN MAT x10^3(ANC) 4.19 10*3/uL 1.99-6.95 (test code = 6912787904) IMM GRAN x10^3 (test <0.03 0.00-0.06 code = 6227084758) LYMPH x10^3 (test code 1.77 10*3/uL 1.09-3.23 = 731-0) MONO x10^3 (test code 0.76 10*3/uL 0.36-1.02 = 742-7) EOS x10^3 (test code = 0.29 10*3/uL 0.06-0.53 711-2) BASO x10^3 (test code 0.04 10*3/uL 0.01-0.09 = 704-7) Lab Interpretation Abnormal (test code = 55701-9) [facility] GLUCOSE (AUTOMATED)2021-11-02 01:29:56 Test Item Value Reference Range Interpretation Comments POCT GLU (test code = 6537971806) 167 mg/dL 70-110 H Lab Interpretation (test code = Abnormal 27148-7) [facility] GLUCOSE (AUTOMATED)2021-11-01 17:40:19 Test Item Value Reference Range Interpretation Comments POCT GLU (test code = 1951878651) 193 mg/dL 70-110 H Lab Interpretation (test code = Abnormal 57087-4) [facility] GLUCOSE (AUTOMATED)2021-11-01 13:44:28 Test Item Value Reference Range Interpretation Comments POCT GLU (test code = 2271059061) 200 mg/dL 70-110 H Lab Interpretation (test code = Abnormal 52864-8) [facility] GLUCOSE (AUTOMATED)2021-11-01 01:38:43 Test Item Value Reference Range Interpretation Comments POCT GLU (test code = 0333217561) 177 mg/dL 70-110 H Lab Interpretation (test code = Abnormal 22836-2) [facility] GLUCOSE (AUTOMATED)2021-10-31 22:39:43 Test Item Value Reference Range Interpretation Comments POCT GLU (test code = 9788819068) 174 mg/dL 70-110 H Lab Interpretation (test code = Abnormal 10583-3) [facility] GLUCOSE (AUTOMATED)2021-10-31 17:40:22 Test Item Value Reference Range Interpretation Comments POCT GLU (test code = 4878766851) 224 mg/dL 70-110 H Lab Interpretation (test code = Abnormal 49591-8) [facility] [id number] 17:14:58 Test Item Value Reference Interpretation Comments Range TROPONIN I (test 0.080 ng/mL See_Comment H [Automated code = 9691066787) message] The system which generated this result [...] biotin. Lab Interpretation Abnormal (test code = 71008-8) [facility] [id number] 15:14:03 Test Item Value Reference Range Interpretation Comments NT-proBNP (test code 474 pg/mL See_Comment H [Autom ated = 6689003433) message] The system which generated this result transmitted reference range : <=450. The reference range was not used to interpret this result as normal/abnormal . ALYSSA (test code = ALYSSA) Biotin has been reported to cause a negative bias, interpret results relative to patient's use of biotin. Lab Interpretation Abnormal (test code = 57060-7) [facility]kin[facility]IPID PANEL (10352)(TOTAL CHOLESTEROL, TRIGLYCERIDES, HDL)2021-10-31 15:05:19 Test Item Value Reference Range Interpretation Comments CHOL (test code = 101 mg/dL 120-200 L 1024980636) HDL (test code = 36 mg/dL >40 L 8271838509) HDLC RATIO (test code = See_Comment [Au tomated message] 4824943135) The system Givkwik generated this result transmit diamante reference range : <=5.0. The refe rence range was not u sed to interpret th is result as normal/abnormal . TRIG (test code = 143 mg/dL 30-170 6950153084) LDL CHOL (test code = 36 mg/dL See_Comment [Auto mated message] 31216-6) The system G[employer] generated this result transmit diamante reference range : <=160. The refe rence range was not u sed to interpret th is result as normal/abnormal . VLDL (test code = 29 mg/dL 5-60 3185343081) Lab Interpretation (test Abnormal code = 82255-7) [facility])2021-10-31 13:44:00 Test Item Value Reference Range Interpretation Comments POCT GLU (test code = 5661521397) 150 mg/dL 70-110 H Lab Interpretation (test code = Abnormal 41446-9) [facility] with [id number] 11:13:14 Test Item Value Reference Range Interpretation [...] RDW-SD (test code = 39.9 fL 38.5-51.6 48736-3) RDW-CV (test code = 11.8 % 12.1-15.4 L 788-0) PLT (test code = See_Comment [Automated 777-3) message] The sy stem which generated this result transmitted reference range : 150 - 328 10*3/ ?L. The reference r corey was not used to interpret this result as normal/abnormal . MPV (test code = 11.0 fL 9.8-13.0 52213-5) NRBC/100 WBC (test See_Comment [Automat ed code = 1496859274) message] The system which generated this result transmitted reference range : 0.0 - 10.0 /100 WBCs. The refer ence range was not u sed to interpret th is result as normal/abnormal . NRBC x10^3 (test code <0.01 See_Comment [Auto mated = 5206105344) message] The s [employer] which generated this result transmitted reference range : 10*3/?L. The reference range was not used to interpret this result as normal/abnormal . GRAN MAT (NEUT) % 64.3 % (test code = 770-8) IMM GRAN % (test code 0.30 % = 6801743114) LYMPH % (test code = 21.7 % 736-9) MONO % (test code = 10.0 % 5905-5) EOS % (test code = 3.1 % 713-8) BASO % (test code = 0.6 % 706-2) GRAN MAT x10^3(ANC) 4.35 10*3/uL 1.99-6.95 (test code = 3106663706) IMM GRAN x10^3 (test <0.03 0.00-0.06 code = 5851639182) LYMPH x10^3 (test code 1.47 10*3/uL 1.09-3.23 = 731-0) MONO x10^3 (test code 0.68 10*3/uL 0.36-1.02 = 742-7) EOS x10^3 (test code = 0.21 10*3/uL 0.06-0.53 711-2) BASO x10^3 (test code 0.04 10*3/uL 0.01-0.09 = 704-7) Lab Interpretation Abnormal (test code = 78301-9) [facility]kin[facility]ATEJr [id number] 11:09:53 Test Item Value Reference Interpretation Comments Range TROPONIN I (test 0.101 ng/mL See_Comment H [Automated code = 8351034821) message] The system which generated this result [...] biotin. Lab Interpretation Abnormal (test code = 57716-3) [facility] Metabolic Panel (NA, K, CL, CO2, GLUCOSE, BUN, CREATININE, CA)2021-10-31 10:59:31 Test Item Value Reference Range Interpretation Comments NA (test code = 139 mmol/L 135-145 8736605874) K (test code = 4.1 mmol/L 3.5-5.0 1747124962) CL (test code = 103 mmol/L 98-108 3977667304) CO2 TOTAL (test code = 28 mmol/L 23-31 9964835949) AGAP (test code = 2-16 0195167546) BUN (test code = 43 mg/dL 7-23 H 4383932690) GLUCOSE (test code = 165 mg/dL 70-110 H 6414345540) CREATININE (test code = 1.68 mg/dL 0.60-1.25 H 7677690829) CALCIUM (test code = 9.6 mg/dL 8.6-10.6 6566864578) eGFR (test code = mL/min/1.73m2 2053282327) ALYSSA (test code = ALYSSA) Association of [...] tests). Lab Interpretation Abnormal (test code = 69675-7) [facility]kin[facility]cosylated Hemoglobin (A1C)2021-10-31 09:13:40 Test Item Value Reference Range Interpretation Comments HGB A1C (test code = 6.8 % 4.0-5.7 H 4548-4) ALYSSA (test code = ALYSSA) Reference RangesNormal: <5.7%Prediabetes: 5.7 - 6.4%Diabetes: > 6.5% Lab Interpretation (test Abnormal code = 74014-8) [facility] [id number] 06:48:18 Test Item Value Reference Interpretation Comments Range TROPONIN I (test 0.082 ng/mL See_Comment H [Automated code = 1814148988) message] The system which generated this result [...] biotin. Lab Interpretation Abnormal (test code = 44221-8) [facility] [id number] 02:09:48 Test Item Value Reference Interpretation Comments Range TROPONIN I (test 0.067 ng/mL See_Comment H [Automated code = 1442099154) message] The system which generated this result [...] biotin. Lab Interpretation Abnormal (test code = 93787-4) [facility] [id number] 02:06:31 Test Item Value Reference Range Interpretation Comments NT-proBNP (test code 318 pg/mL See_Comment [Autom ated = 4952867634) message] The system which generated this result transmitted reference range : <=450. The reference range was not used to interpret this result as normal/abnormal . ALYSSA (test code = ALYSSA) Biotin has been reported to cause a negative bias, interpret results relative to patient's use of biotin. Lab Interpretation Normal (test code = 03424-5) [facility]. METABOLIC PANEL (57857)2021-10-31 01:58:28 Test Item Value Reference Range Interpretation Comments NA (test code = 137 mmol/L 135-145 3376720353) K (test code = 4.1 mmol/L 3.5-5.0 5461868257) CL (test code = 101 mmol/L 98-108 4162047200) CO2 TOTAL (test code = 26 mmol/L 23-31 5725994747) AGAP (test code = 2-16 5510632512) BUN (test code = 46 mg/dL 7-23 H 8964997025) GLUCOSE (test code = 213 mg/dL 70-110 H 6041420541) CREATININE (test code = 1.96 mg/dL 0.60-1.25 H 1301773363) TOTAL BILI (test code = 0.9 mg/dL 0.1-1.2 9577291342) CALCIUM (test code = 9.7 mg/dL 8.6-10.6 6418814227) T PROTEIN (test code = 7.0 g/dL 6.3-8.2 6468566279) ALBUMIN (test code = 4.3 g/dL 3.5-5.0 6730869107) ALK PHOS (test code = 58 U/L 34-122 0959389019) ALTv (test code = 20 U/L 5-50 1742-6) AST(SGOT) (test code = 27 U/L 13-40 3360164742) eGFR (test code = mL/min/1.73m2 8592084517) ALYSSA (test code = ALYSSA) Association of [...] tests). Lab Interpretation Abnormal (test code = 99792-6) [facility]kin[facility]IP[facility], [id number] 01:57:48 Test Item Value Reference Range Interpretation Comments LIPASE (test code = 1220159321) 330 U/L 0-220 H Lab Interpretation (test code = Abnormal 18449-5) [facility] LufkinaPTT2021-12-16 01:55:04 Test Item Value Reference Range Interpretation Comments APTT Patient (test See_Comment [Automat ed code = 3173-2) message] The system which generated this result transmitted reference range : 23 - 38 Seconds . The reference range was not used to interpr et this result as normal/abnormal . ALYSSA (test code = ALYSSA) The [facility] patient population mean normal value for aPTT is 30 seconds. Lab Interpretation Normal (test code = 35991-0) [facility]HROM[facility] TIME / [id number] 01:53:08 Test Item Value Reference Range Interpretation [...] tions. Lab Interpretation (test Normal code = 49353-0) [facility] WITH [id number] 01:45:44 Test Item Value Reference Range Interpretation Comments WBC (test code = See_Comment [Automated 5490-2) message] The sy stem which generated this result transmitted reference range : 4.20 - 10.70 10*3/?L. The reference range was not used to interpret this result as normal/abnormal . RBC (test code = See_Comment L [Automated 569-8) message] The sy stem which generated this [...] RDW-SD (test code = 39.1 fL 38.5-51.6 70701-6) RDW-CV (test code = 11.6 % 12.1-15.4 L 788-0) PLT (test code = See_Comment [Automated 777-3) message] The sy stem which generated this result transmitted reference range : 150 - 328 10*3/ ?L. The reference r corey was not used to interpret this result as normal/abnormal . MPV (test code = 10.4 fL 9.8-13.0 73898-6) NRBC/100 WBC (test See_Comment [Automat ed code = 7308812641) message] The system which generated this result transmitted reference range : 0.0 - 10.0 /100 WBCs. The refer ence range was not u sed to interpret th is result as normal/abnormal . NRBC x10^3 (test code <0.01 See_Comment [Auto mated = 6320356205) message] The s ystem which generated this result transmitted reference range : 10*3/?L. The reference range was not used to interpret this result as normal/abnormal . GRAN MAT (NEUT) % 62.1 % (test code = 770-8) IMM GRAN % (test code 0.30 % = 0952325915) LYMPH % (test code = 23.4 % 736-9) MONO % (test code = 10.8 % 5905-5) EOS % (test code = 2.9 % 713-8) BASO % (test code = 0.5 % 706-2) GRAN MAT x10^3(ANC) 4.14 10*3/uL 1.99-6.95 (test code = 7585859430) IMM GRAN x10^3 (test <0.03 0.00-0.06 code = 8000197809) LYMPH x10^3 (test code 1.56 10*3/uL 1.09-3.23 = 731-0) MONO x10^3 (test code 0.72 10*3/uL 0.36-1.02 = 742-7) EOS x10^3 (test code = 0.19 10*3/uL 0.06-0.53 711-2) BASO x10^3 (test code 0.03 10*3/uL 0.01-0.09 = 704-7) Lab Interpretation Abnormal (test code = 60384-8) [facility]INALYSIS2021-06-10 21:15:48 Test Item Value Reference Range Interpretation Comments APPEARANCE (test code = Clear Clear 0061699804) COLOR (test code = Yellow Yellow 8364454546) PH (test code = 4.8-8.0 5644985911) SP GRAVITY (test code = 1.003-1.030 6897267362) GLU U QUAL (test code = 50 mg/dL Normal A 3894377771) BLOOD (test code = Negative Negative INTERFERE NCE FROM 9680122505) ASCORBIC ACID M AY CAUSE FALSE NEG ATIVE RESULT KETONES (test code = Negative Negative 6387222350) PROTEIN (test code = Negative Negative 2887-8) UROBILIN (test code = Normal Normal 3331363218) BILIRUBIN (test code = Negative Negative 5464951053) NITRITE (test code = Negative Negative 9195643891) LEUK JESS (test code = Negative Negative 0067670935) RBC/HPF (test code = See_Comment [Autom ated message] 3701070603) The system [employer] generated this result transmitted ref erence range: 0 - 3 HP F. The reference range was not used to int erpret this result as normal/abnormal . WBC/HPF (test code = See_Comment [Autom ated message] 7943662377) The system [employer] generated this result transmitted ref erence range: 0 - 5 HP F. The reference range was not used to int erpret this result as normal/abnormal . BACTERIA (test code = Negative Negative 2865265266) SQ EPITH (test code = <1 See_Comment [Auto mated message] 8584261740) The system [employer] generated this result transmitted ref erence range: <=2 HPF. The reference range was not used to int erpret this result as normal/abnormal . HYAL CAST (test code = See_Comment [Aut omated message] 3669883280) The system [employer] generated this result transmitted ref erence range: <=2 LPF. The reference range was not used to int erpret this result as normal/abnormal . Lab Interpretation (test Abnormal code = 04146-1) [facility] LUMBAR SPINE 2 [id number] 20:30:53 Impression: Postoperative changes. Degenerative changes. No [...] acute fracture or dislocation identified. Atherosclerotic calcifications. [facility], Radiant Results Inft User -04/25/2021 3:31 PM [...] acute bony abnormality identified.End of Report.RL: [facility] [facility] HIPS 2 VW [id number] 20:24:52Impression: Postoperative changes. Degenerative changes. No acute [...] clinicalconcern MRI is available.End of Report.RL: [facility] (NA, K, CL, CO2, GLUCOSE, BUN, CREATININE, CA)2020-05-24 14:15:00 Test Item Value Reference Range Interpretation Comments NA (test code = 139 mmol/L 135-145 6685931629) K (test code = 4.1 mmol/L 3.5-5 9424586067) CL (test code = 104 mmol/L 98-108 5838146763) CO2 TOTAL (test code = 26 mmol/L 23-31 3599515260) AGAP (test code = 2-16 3672754907) BUN (test code = 22 mg/dL 7-23 5469098020) GLUCOSE (test code = 203 mg/dL 70-110 H 5914451723) CREATININE (test code = 1.40 mg/dL 0.6-1.25 H 9495830058) CALCIUM (test code = 9.1 mg/dL 8.6-10.6 9312452288) eGFR Calculation mL/min/1.73m2 (Non-) (test code = 3763997794) eGFR Calculation mL/min/1.73m2 () (test code = 6368236567) ALYSSA (test code = ALYSSA) Association of [...] tests). Lab Interpretation Abnormal (test code = 40627-1) [facility] Function [facility] (ALB, T.PRO, BILI T, BU/BC, ALT, AST, ALK PHOS)2020-05-24 13:54:00 Test Item Value Reference Range Interpretation Comments TOTAL BILI (test code = 2374664172) 0.9 mg/dL 0.1-1.1 BILI UNCON (test code = 1478364732) 1.0 mg/dL 0.1-1.1 BILI CONJ (test code = 7892842182) 0.0 mg/dL 0-0.3 T PROTEIN (test code = 6114116189) 7.0 g/dL 6.3-8.2 ALBUMIN (test code = 8683325442) 4.2 g/dL 3.5-5 ALK PHOS (test code = 1241207082) 49 U/L 34-122 ALTv (test code = 1742-6) 17 U/L 5-50 AST(SGOT) (test code = 8878364486) 25 U/L 13-40 Lab Interpretation (test code = Normal 56978-9) [facility]kinaPTT2020-07-09 13:32:00 Test Item Value Reference Range Interpretation Comments APTT Patient (test See_Comment [Automat ed code = 3173-2) message] The system which generated this result transmitted reference range : 23 - 38 Seconds . The reference range was not used to interpr et this result as normal/abnormal . ALYSSA (test code = ALYSSA) The [facility] patient population mean normal value for aPTT is 30 seconds. Lab Interpretation Normal (test code = 53030-5) [facility]kinProthrombin Time (PT) / [id number] 13:30:00 Test Item Value Reference Range Interpretation [...] tions. Lab Interpretation (test Normal code = 52385-0) [facility] WITH [id number] 13:27:00 Test Item Value Reference Range Interpretation [...] RDW-SD (test code = 42.6 fL 38.5-51.6 73188-8) RDW-CV (test code = 12.3 % 12.1-15.4 788-0) PLT (test code = See_Comment [Automated 777-3) message] The sy stem which generated this result transmitted reference range : 150 - 328 10*3/ ?L. The reference r corey was not used to interpret this result as normal/abnormal . MPV (test code = 9.9 fL 9.8-13 27344-7) NRBC/100 WBC (test See_Comment [Automat ed code = 3176234393) message] The system which generated this result transmitted reference range : 0.0 - 10.0 /100 WBCs. The refer ence range was not u sed to interpret th is result as normal/abnormal . NRBC x10^3 (test code <0.01 See_Comment [Auto mated = 7537343438) message] The s ystem which generated this result transmitted reference range : 10*3/?L. The reference range was not used to interpret this result as normal/abnormal . GRAN MAT (NEUT) % 55.1 % (test code = 770-8) IMM GRAN % (test code 0.20 % = 4219748953) LYMPH % (test code = 28.8 % 736-9) MONO % (test code = 11.3 % 5905-5) EOS % (test code = 3.5 % 713-8) BASO % (test code = 1.1 % 706-2) GRAN MAT x10^3(ANC) 3.11 10*3/uL 1.99-6.95 (test code = 8553738093) IMM GRAN x10^3 (test <0.03 0-0.06 code = 5160084470) LYMPH x10^3 (test code 1.63 10*3/uL 1.09-3.23 = 731-0) MONO x10^3 (test code 0.64 10*3/uL 0.36-1.02 = 742-7) EOS x10^3 (test code = 0.20 10*3/uL 0.06-0.53 711-2) BASO x10^3 (test code 0.06 10*3/uL 0.01-0.09 = 704-7) Lab Interpretation Abnormal (test code = 30423-3) [facility]LE 3+ VW [id number] 13:25:58HISTORY: ?Pain. FINDINGS: AP, lateral, oblique views [...] acute fracture or dislocation in left ankle.[facility] GLUCOSE (AUTOMATED)2020-03-23 22:34:00 Test Item Value Reference Range Interpretation Comments POCT GLU (test code = 7744318983) 173 mg/dL 70-110 H Lab Interpretation (test code = Abnormal 22841-4) [facility] GLUCOSE (AUTOMATED)2020-03-23 22:34:00 Test Item Value Reference Range Interpretation Comments POCT GLU (test code = 4486720099) 173 mg/dL 70-110 H Lab Interpretation (test code = Abnormal 25237-2) [facility] GLUCOSE (AUTOMATED)2020-03-23 18:12:00 Test Item Value Reference Range Interpretation Comments POCT GLU (test code = 165 mg/dL 70-110 H Notifi ed Provider [id number]) Lab Interpretation (test Abnormal code = 13575-5) [facility] GLUCOSE (AUTOMATED)2020-03-23 18:12:00 Test Item Value Reference Range Interpretation Comments POCT GLU (test code = 165 mg/dL 70-110 H Notifi ed Provider [id number]) Lab Interpretation (test Abnormal code = 56611-3) [facility] GLUCOSE (AUTOMATED)2020-03-23 15:04:00 Test Item Value Reference Range Interpretation Comments POCT GLU (test code = 114 mg/dL 70-110 H Notifi ed Provider [id number]) Lab Interpretation (test Abnormal code = 48817-8) [facility] GLUCOSE (AUTOMATED)2020-03-23 15:04:00 Test Item Value Reference Range Interpretation Comments POCT GLU (test code = 114 mg/dL 70-110 H Notifi ed Provider [id number]) Lab Interpretation (test Abnormal code = 36466-2) [facility]kinFERRITIN [id number] 13:23:00 Test Item Value Reference Range Interpretation Comments FERRITIN (test code = 139.0 ng/mL 18-464 4769305184) ALYSSA (test code = ALYSSA) Biotin has been reported to cause a negative bias, interpret results relative to patient's use of biotin. Lab Interpretation (test Normal code = 86179-5) [facility]kinFERRITIN [id number] 13:23:00 Test Item Value Reference Range Interpretation Comments FERRITIN (test code = 139.0 ng/mL 18-464 6164332102) ALYSSA (test code = ALYSSA) Biotin has been reported to cause a negative bias, interpret results relative to patient's use of biotin. Lab Interpretation (test Normal code = 97816-2) [facility]kinIRON [id number] 12:53:00 Test Item Value Reference Range Interpretation Comments IRON (test code = 5185012043) 87 ug/dL 50-160 TIBC (test code = 1761759695) 385 ug/dL 250-410 % FE SAT (test code = 5723905472) 23 % 20-50 Lab Interpretation (test code = Normal 09735-1) [facility]IR[facility] [id number] 12:53:00 Test Item Value Reference Range Interpretation Comments IRON (test code = 4688249090) 87 ug/dL 50-160 TIBC (test code = 4013263438) 385 ug/dL 250-410 % FE SAT (test code = 0952808727) 23 % 20-50 Lab Interpretation (test code = Normal 22683-5) [facility] Test Item Value Reference Range Interpretation Comments APTT Patient (test code See_Comment HH [Au tomated message] = 3173-2) The system [employer] generated this result transmitted ref erence range: 26 - 36 Seconds. The reference range was not used to int erpret this result as normal/abnormal . Lab Interpretation (test Abnormal code = 57387-2) [facility]:07[facility]00 Test Item Value Reference Range Interpretation Comments APTT Patient (test code See_Comment [Au tomated message] = 3173-2) The system [employer] generated this result transmitted ref erence range: 26 - 36 Seconds. The reference range was not used to int erpret this result as normal/abnormal . Lab Interpretation (test Abnormal code = 76062-0) [facility] [id number] 11:57:00 Test Item Value Reference Range Interpretation Comments TROPONIN I (test 0.046 ng/mL See_Comment H [Automated code = 9135860116) message] The system which generated this result [...] ? Lab Interpretation Abnormal (test code = 16958-4) [facility]WENDY [id number] 11:57:00 Test Item Value Reference Range Interpretation Comments TROPONIN I (test 0.046 ng/mL See_Comment H [Automated code = 6854860152) message] The system which generated this result [...] ? Lab Interpretation Abnormal (test code = 85676-9) [facility]OLIC [facility] (NA, K, CL, CO2, GLUCOSE, BUN, CREATININE, CA)2020-03-23 11:52:00 Test Item Value Reference Range Interpretation Comments NA (test code = 137 mmol/L 135-145 5240899718) K (test code = 4.1 mmol/L 3.5-5 3988898567) CL (test code = 102 mmol/L 98-108 1420404546) CO2 TOTAL (test code = 26 mmol/L 23-31 1703348259) AGAP (test code = 2-16 0508353108) BUN (test code = 18 mg/dL 7-23 3351063397) GLUCOSE (test code = 119 mg/dL 70-110 H 7453290255) CREATININE (test code = 1.14 mg/dL 0.6-1.25 2624819022) CALCIUM (test code = 9.1 mg/dL 8.6-10.6 6127603425) eGFR Calculation mL/min/1.73m2 (Non-) (test code = 2381716457) eGFR Calculation mL/min/1.73m2 () (test code = 1692997096) ALYSSA (test code = ALYSSA) Association of [...] tests). Lab Interpretation Abnormal (test code = 98388-7) [facility]MAGNESIUM2020-05-08 11:52:00 Test Item Value Reference Range Interpretation Comments MAGNESIUM (test code = 8248373089) 2.2 mg/dL 1.7-2.4 Lab Interpretation (test code = Normal 08435-2) [facility] (NA, K, CL, CO2, GLUCOSE, BUN, CREATININE, CA)2020-03-23 11:52:00 Test Item Value Reference Range Interpretation Comments NA (test code = 137 mmol/L 135-145 4291887759) K (test code = 4.1 mmol/L 3.5-5 0891382948) CL (test code = 102 mmol/L 98-108 2297702297) CO2 TOTAL (test code = 26 mmol/L 23-31 1289508412) AGAP (test code = 2-16 0204611328) BUN (test code = 18 mg/dL 7-23 4992009939) GLUCOSE (test code = 119 mg/dL 70-110 H 9569305356) CREATININE (test code = 1.14 mg/dL 0.6-1.25 6698466723) CALCIUM (test code = 9.1 mg/dL 8.6-10.6 6982733846) eGFR Calculation mL/min/1.73m2 (Non-) (test code = 9003610379) eGFR Calculation mL/min/1.73m2 () (test code = 3677661325) ALYSSA (test code = ALYSSA) Association of [...] tests). Lab Interpretation Abnormal (test code = 70770-5) [facility]2020-05-08 11:52:00 Test Item Value Reference Range Interpretation Comments MAGNESIUM (test code = 8373573012) 2.2 mg/dL 1.7-2.4 Lab Interpretation (test code = Normal 74972-7) [facility]kinProthrombin Time (PT) / [id number] 11:36:00 Test Item Value Reference Range Interpretation Comments PROTIME PATIENT (test See_Comment [Auto mated message] code = 5964-2) The system [employer] generated this result transmitted ref erence range: 10.1 - 1 2.6 Seconds. The re ference range was not u sed to interpret this result as normal/abnor mal. INR (test code = 6301-6) Nor mal INR <1.1; Warfarin Therap eutic range 2.0 to 3. 0 or 2.5 to 3.5, dep ending upon the indica tions. Lab Interpretation (test Normal code = 20994-4) [facility]th[facility]bin Time (PT) / [id number] 11:36:00 Test Item Value Reference Range Interpretation Comments PROTIME PATIENT (test See_Comment [Auto mated message] code = 5964-2) The system [employer] generated this result transmitted ref erence range: 10.1 - 1 2.6 Seconds. The re ference range was not u sed to interpret this result as normal/abnor mal. INR (test code = 6301-6) Nor mal INR <1.1; Warfarin Therap eutic range 2.0 to 3. 0 or 2.5 to 3.5, dep ending upon the indica tions. Lab Interpretation (test Normal code = 78117-4) [facility] [id number] 06:38:00 Test Item Value Reference Range Interpretation Comments TROPONIN I (test 0.045 ng/mL See_Comment H [Automated code = 8214533025) message] The system which generated this result [...] ? Lab Interpretation Abnormal (test code = 53918-9) [facility] [id number] 06:38:00 Test Item Value Reference Range Interpretation Comments TROPONIN I (test 0.045 ng/mL See_Comment H [Automated code = 2242833540) message] The system which generated this result [...] ? Lab Interpretation Abnormal (test code = 84878-1) [facility] (NA, K, CL, CO2, GLUCOSE, BUN, CREATININE, CA)2020-03-23 06:29:00 Test Item Value Reference Range Interpretation Comments NA (test code = 137 mmol/L 135-145 9700105168) K (test code = 3.6 mmol/L 3.5-5 6370482076) CL (test code = 101 mmol/L 98-108 6566784869) CO2 TOTAL (test code = 27 mmol/L 23-31 1827011124) AGAP (test code = 2-16 9004454315) BUN (test code = 19 mg/dL 7-23 2459571449) GLUCOSE (test code = 153 mg/dL 70-110 H 3757385175) CREATININE (test code = 1.22 mg/dL 0.6-1.25 8510481374) CALCIUM (test code = 8.9 mg/dL 8.6-10.6 1752970238) eGFR Calculation mL/min/1.73m2 (Non-) (test code = 5214446367) eGFR Calculation mL/min/1.73m2 () (test code = 5269533088) ALYSSA (test code = ALYSSA) Association of [...] tests). Lab Interpretation Abnormal (test code = 76961-8) [facility]2020-05-08 06:29:00 Test Item Value Reference Range Interpretation Comments MAGNESIUM (test code = 0079240283) 1.7 mg/dL 1.7-2.4 Lab Interpretation (test code = Normal 30027-6) [facility] LufkinLIPID PANEL (76924)(TOTAL CHOLESTEROL, TRIGLYCERIDES, HDL)2020-03-23 06:29:00 Test Item Value Reference Range Interpretation Comments CHOL (test code = 106 mg/dL 120-200 L 3702604592) HDL (test code = 46 mg/dL >40 0578745558) HDLC RATIO (test code = See_Comment [Au tomated message] 1341973932) The system [employer] generated this result transmit diamante reference range : <=5.0. The refe rence range was not u sed to interpret th is result as normal/abnormal . TRIG (test code = 74 mg/dL 30-170 8575506030) LDL CHOL (test code = 45 mg/dL See_Comment [Auto mated message] 46591-4) The system [employer] generated this result transmit diamante reference range : <=160. The refe rence range was not u sed to interpret th is result as normal/abnormal . VLDL (test code = 15 mg/dL 5-60 4579280145) Lab Interpretation (test Abnormal code = 54163-4) [facility] METABOLIC PANEL (NA, K, CL, CO2, GLUCOSE, BUN, CREATININE, CA)2020-03-23 06:29:00 Test Item Value Reference Range Interpretation Comments NA (test code = 137 mmol/L 135-145 2301410282) K (test code = 3.6 mmol/L 3.5-5 6554818935) CL (test code = 101 mmol/L 98-108 9427178723) CO2 TOTAL (test code = 27 mmol/L 23-31 8322188907) AGAP (test code = 2-16 5620203890) BUN (test code = 19 mg/dL 7-23 4482214125) GLUCOSE (test code = 153 mg/dL 70-110 H 4905396958) CREATININE (test code = 1.22 mg/dL 0.6-1.25 0226430841) CALCIUM (test code = 8.9 mg/dL 8.6-10.6 1422936019) eGFR Calculation mL/min/1.73m2 (Non-) (test code = 2343623373) eGFR Calculation mL/min/1.73m2 () (test code = 1078078927) ALYSSA (test code = ALYSSA) Association of [...] tests). Lab Interpretation Abnormal (test code = 31589-6) [facility]2020-05-08 06:29:00 Test Item Value Reference Range Interpretation Comments MAGNESIUM (test code = 5950132232) 1.7 mg/dL 1.7-2.4 Lab Interpretation (test code = Normal 38501-0) [facility]kinLIPID PANEL (17440)(TOTAL CHOLESTEROL, TRIGLYCERIDES, HDL)2020-03-23 06:29:00 Test Item Value Reference Range Interpretation Comments CHOL (test code = 106 mg/dL 120-200 L 2460056671) HDL (test code = 46 mg/dL >40 8680624348) HDLC RATIO (test code = See_Comment [Au tomated message] 2828280564) The system [employer] generated this result transmit diamante reference range : <=5.0. The refe rence range was not u sed to interpret th is result as normal/abnormal . TRIG (test code = 74 mg/dL 30-170 3907967553) LDL CHOL (test code = 45 mg/dL See_Comment [Auto mated message] 31868-7) The system [employer] generated this result transmit diamante reference range : <=160. The refe rence range was not u sed to interpret th is result as normal/abnormal . VLDL (test code = 15 mg/dL 5-60 4745397591) Lab Interpretation (test Abnormal code = 96744-5) [facility]2020-05-08 03:18:00 Test Item Value Reference Range Interpretation Comments APTT Patient (test code = See_Comment [ Automated message] 3173-2) The system [employer] generated this result transmitted ref erence range: 26 - 36 Seconds. The re ference range was not u sed to interpret this result as normal/abnor mal. Lab Interpretation (test Normal code = 71170-4) [facility]2020-05-08 03:18:00 Test Item Value Reference Range Interpretation Comments APTT Patient (test code = See_Comment [ Automated message] 3173-2) The system [employer] generated this result transmitted ref erence range: 26 - 36 Seconds. The re ference range was not u sed to interpret this result as normal/abnor mal. Lab Interpretation (test Normal code = 90149-8) [facility]kinPROTHROMBIN TIME / [id number] 03:07:00 Test Item Value Reference Range Interpretation Comments PROTIME PATIENT (test See_Comment [Auto mated message] code = 5964-2) The system [employer] generated this result transmitted ref erence range: 10.1 - 1 2.6 Seconds. The re ference range was not u sed to interpret this result as normal/abnor mal. INR (test code = 6301-6) Nor mal INR <1.1; Warfarin Therap eutic range 2.0 to 3. 0 or 2.5 to 3.5, dep ending upon the indica tions. Lab Interpretation (test Normal code = 59272-5) [facility]kinPROTHROMBIN TIME / [id number] 03:07:00 Test Item Value Reference Range Interpretation Comments PROTIME PATIENT (test See_Comment [Auto mated message] code = 5964-2) The system [employer] generated this result transmitted ref erence range: 10.1 - 1 2.6 Seconds. The re ference range was not u sed to interpret this result as normal/abnor mal. INR (test code = 6301-6) Nor mal INR <1.1; Warfarin Therap eutic range 2.0 to 3. 0 or 2.5 to 3.5, dep ending upon the indica tions. Lab Interpretation (test Normal code = 03768-9) [facility]ST 2 [id number] 02:23:32 No acute cardiopulmonary process. Preliminary Report [...] [facility] 2 [id number] 02:23:32 No acute cardiopulmonary process. Preliminary Report [...] abovereport.[facility]kinCORON[facility]IR[facility] COVID-19 [id number] 01:23:00 Test Item Value Reference Range Interpretation Comments SARS-CoV-2 (test code = Not Detected Not Detected 80480-3) ALYSSA (test code = ALYSSA) ID NOW COVID-19 Assay is an isothermal nucleic acid amplification test intended for the qualitative detection of nucleic acid from SARS-CoV-2 viral RNA in nasopharyngeal (HEEL EMERY BUFFER) specimens. It is used under Emergency Use [...] indicated. Lab Interpretation Normal (test code = 94947-4) [facility] COVID-19 [id number] 01:23:00 Test Item Value Reference Range Interpretation Comments SARS-CoV-2 (test code = Not Detected Not Detected 38048-1) ALYSSA (test code = ALYSSA) ID NOW COVID-19 Assay is an isothermal nucleic acid amplification test intended for the qualitative detection of nucleic acid from SARS-CoV-2 viral RNA in nasopharyngeal (HEEL EMERY BUFFER) specimens. It is used under Emergency Use [...] indicated. Lab Interpretation Normal (test code = 44309-4) [facility]kinN-TER[facility]AL [id number] 00:12:00 Test Item Value Reference Range Interpretation Comments NT-proBNP (test code 585 pg/mL See_Comment H [Autom ated = 0304175283) message] The system which generated this result transmitted reference range : <=450. The reference range was not used to interpret this result as normal/abnormal . ALYSSA (test code = ALYSSA) Biotin has been reported to cause a negative bias, interpret results relative to patient's use of biotin. Lab Interpretation Abnormal (test code = 19911-3) [facility] [id number] 00:12:00 Test Item Value Reference Range Interpretation Comments TROPONIN I (test 0.030 ng/mL See_Comment [Automated code = 3131821262) message] The system which generated this result [...] ? Lab Interpretation Normal (test code = 77029-1) [facility] [id number] 00:12:00 Test Item Value Reference Range Interpretation Comments NT-proBNP (test code 585 pg/mL See_Comment H [Autom ated = 9139059378) message] The system which generated this result transmitted reference range : <=450. The reference range was not used to interpret this result as normal/abnormal . ALYSSA (test code = ALYSSA) Biotin has been reported to cause a negative bias, interpret results relative to patient's use of biotin. Lab Interpretation Abnormal (test code = 03400-2) [facility] [id number] 00:12:00 Test Item Value Reference Range Interpretation Comments TROPONIN I (test 0.030 ng/mL See_Comment [Automated code = 7155945674) message] The system which generated this result [...] ? Lab Interpretation Normal (test code = 11615-6) [facility] MET[facility]OLIC PANEL ([id number])2020-03-23 00:03:00 Test Item Value Reference Range Interpretation Comments NA (test code = 138 mmol/L 135-145 1505201185) K (test code = 4.1 mmol/L 3.5-5 5228482983) CL (test code = 103 mmol/L 98-108 7246348487) CO2 TOTAL (test code = 26 mmol/L 23-31 5485392391) AGAP (test code = 2-16 8007970339) BUN (test code = 18 mg/dL 7-23 5462235134) GLUCOSE (test code = 157 mg/dL 70-110 H 5960330838) CREATININE (test code = 1.19 mg/dL 0.6-1.25 8126249579) TOTAL BILI (test code = 1.1 mg/dL 0.1-1.5 2963026196) CALCIUM (test code = 9.2 mg/dL 8.6-10.6 5156551638) T PROTEIN (test code = 6.8 g/dL 6.3-8.2 4686930467) ALBUMIN (test code = 4.0 g/dL 3.5-5 3576079419) ALK PHOS (test code = 51 U/L 34-122 7805576658) ALTv (test code = 16 U/L 5-50 1742-6) AST(SGOT) (test code = 23 U/L 13-40 9050907110) eGFR Calculation mL/min/1.73m2 (Non-) (test code = 7737438164) eGFR Calculation mL/min/1.73m2 () (test code = 6810175394) ALYSSA (test code = ALYSSA) Association of [...] tests). Lab Interpretation Abnormal (test code = 55416-1) [facility]. METABOLIC PANEL ([id number])2020-03-23 00:03:00 Test Item Value Reference Range Interpretation Comments NA (test code = 138 mmol/L 135-145 1496623047) K (test code = 4.1 mmol/L 3.5-5 0995651550) CL (test code = 103 mmol/L 98-108 2904668808) CO2 TOTAL (test code = 26 mmol/L 23-31 1357852318) AGAP (test code = 2-16 9898345906) BUN (test code = 18 mg/dL 7-23 7798297966) GLUCOSE (test code = 157 mg/dL 70-110 H 2326610248) CREATININE (test code = 1.19 mg/dL 0.6-1.25 5259477388) TOTAL BILI (test code = 1.1 mg/dL 0.1-1.9 6164923913) CALCIUM (test code = 9.2 mg/dL 8.6-10.6 2309536529) T PROTEIN (test code = 6.8 g/dL 6.3-8.2 3578117571) ALBUMIN (test code = 4.0 g/dL 3.5-5 5612594270) ALK PHOS (test code = 51 U/L 34-122 0080726620) ALTv (test code = 16 U/L 5-50 1742-6) AST(SGOT) (test code = 23 U/L 13-40 2077095045) eGFR Calculation mL/min/1.73m2 (Non-) (test code = 1296814071) eGFR Calculation mL/min/1.73m2 () (test code = 5308777998) ALYSSA (test code = ALYSSA) Association of [...] tests). Lab Interpretation Abnormal (test code = 75767-1) [facility] WITH [id number] 23:57:00 Test Item Value Reference Range Interpretation Comments WBC (test code = See_Comment [Automated 7491-2) message] The sy stem which generated this result transmitted reference range : 4.20 - 10.70 10*3/?L. The reference range was not used to interpret this result as normal/abnormal . RBC (test code = See_Comment L [Automated 070-8) message] The sy stem which generated this [...] RDW-SD (test code = 49.6 fL 38.5-51.6 86085-6) RDW-CV (test code = 14.6 % 12.1-15.4 788-0) PLT (test code = See_Comment L [Automated 777-3) message] The sy stem which generated this result transmitted reference range : 150 - 328 10*3/ ?L. The reference r corey was not used to interpret this result as normal/abnormal . MPV (test code = 9.9 fL 9.8-13 02527-5) NRBC/100 WBC (test See_Comment [Automat ed code = 6964141877) message] The system which generated this result transmitted reference range : 0.0 - 10.0 /100 WBCs. The refer ence range was not u sed to interpret th is result as normal/abnormal . NRBC x10^3 (test code <0.01 See_Comment [Auto mated = 3633697322) message] The s ystem which generated this result transmitted reference range : 10*3/?L. The reference range was not used to interpret this result as normal/abnormal . GRAN MAT (NEUT) % 55.3 % (test code = 770-8) IMM GRAN % (test code 0.20 % = 7258680026) LYMPH % (test code = 28.3 % 736-9) MONO % (test code = 12.6 % 5905-5) EOS % (test code = 3.1 % 713-8) BASO % (test code = 0.5 % 706-2) GRAN MAT x10^3(ANC) 3.20 10*3/uL 1.99-6.95 (test code = 7936410946) IMM GRAN x10^3 (test <0.03 0-0.06 code = 2998971869) LYMPH x10^3 (test code 1.64 10*3/uL 1.09-3.23 = 731-0) MONO x10^3 (test code 0.73 10*3/uL 0.36-1.02 = 742-7) EOS x10^3 (test code = 0.18 10*3/uL 0.06-0.53 711-2) BASO x10^3 (test code 0.03 10*3/uL 0.01-0.09 = 704-7) Lab Interpretation Abnormal (test code = 80717-6) [facility] WITH [id number] 23:57:00 Test Item Value Reference Range Interpretation [...] RDW-SD (test code = 49.6 fL 38.5-51.6 61770-9) RDW-CV (test code = 14.6 % 12.1-15.4 788-0) PLT (test code = See_Comment L [Automated 777-3) message] The sy stem which generated this result transmitted reference range : 150 - 328 10*3/ ?L. The reference r corey was not used to interpret this result as normal/abnormal . MPV (test code = 9.9 fL 9.8-13 99989-5) NRBC/100 WBC (test See_Comment [Automat ed code = 0232160171) message] The system which generated this result transmitted reference range : 0.0 - 10.0 /100 WBCs. The refer ence range was not u sed to interpret th is result as normal/abnormal . NRBC x10^3 (test code <0.01 See_Comment [Auto mated = 4674449359) message] The s ystem which generated this result transmitted reference range : 10*3/?L. The reference range was not used to interpret this result as normal/abnormal . GRAN MAT (NEUT) % 55.3 % (test code = 770-8) IMM GRAN % (test code 0.20 % = 1335396212) LYMPH % (test code = 28.3 % 736-9) MONO % (test code = 12.6 % 5905-5) EOS % (test code = 3.1 % 713-8) BASO % (test code = 0.5 % 706-2) GRAN MAT x10^3(ANC) 3.20 10*3/uL 1.99-6.95 (test code = 2349098429) IMM GRAN x10^3 (test <0.03 0-0.06 code = 9572163518) LYMPH x10^3 (test code 1.64 10*3/uL 1.09-3.23 = 731-0) MONO x10^3 (test code 0.73 10*3/uL 0.36-1.02 = 742-7) EOS x10^3 (test code = 0.18 10*3/uL 0.06-0.53 711-2) BASO x10^3 (test code 0.03 10*3/uL 0.01-0.09 = 704-7) Lab Interpretation Abnormal (test code = 34319-6) [facility] COVID-19 [id number] 21:48:00 Test Item Value Reference Range Interpretation Comments SARS-CoV-2 (test code = Not Detected Not Detected 54563-6) ALYSSA (test code = ALYSSA) ID NOW COVID-19 Assay is an isothermal nucleic acid amplification test intended for the qualitative detection of nucleic acid from SARS-CoV-2 viral RNA in nasopharyngeal (HEEL EMERY BUFFER) specimens. It is used under Emergency Use [...] indicated. Lab Interpretation Normal (test code = 73076-0) [facility] [id number] 21:44:00 Test Item Value Reference Range Interpretation Comments TROPONIN I (test 0.027 ng/mL See_Comment [Automated code = 9683516314) message] The system which generated this result [...] ? Lab Interpretation Normal (test code = 78289-2) [facility]Prothrombin Time (PT) / [id number] 21:41:00 Test Item Value Reference Range Interpretation Comments PROTIME PATIENT (test See_Comment [Auto mated message] code = 5964-2) The system [employer] generated this result transmitted ref erence range: 12.0 - 1 4.7 Seconds. The re ference range was not u sed to interpret this result as normal/abnor mal. INR (test code = 6301-6) Nor mal INR <1.1; Warfarin Therap eutic range 2.0 to 3. 0 or 2.5 to 3.5, dep ending upon the indica tions. Lab Interpretation (test Normal code = 57857-5) [facility] [id number] 21:39:00 Test Item Value Reference Range Interpretation Comments NT-proBNP (test code 663 pg/mL See_Comment H [Autom ated = 9869370479) message] The system which generated this result transmitted reference range : <=450. The reference range was not used to interpret this result as normal/abnormal . ALYSSA (test code = ALYSSA) Biotin has been reported to cause a negative bias, interpret results relative to patient's use of biotin. Lab Interpretation Abnormal (test code = 45357-0) [facility] METABOLIC PANEL ([id number])2020-03-21 21:37:00 Test Item Value Reference Range Interpretation Comments NA (test code = 139 mmol/L 135-145 5001628713) K (test code = 4.1 mmol/L 3.5-5 5514625859) CL (test code = 102 mmol/L 98-108 7564460659) CO2 TOTAL (test code = 29 mmol/L 23-31 6274020413) AGAP (test code = 2-16 0180613083) BUN (test code = 18 mg/dL 7-23 4023293730) GLUCOSE (test code = 277 mg/dL 70-110 H 0044505585) CREATININE (test code = 1.23 mg/dL 0.6-1.25 1746212816) TOTAL BILI (test code = 1.3 mg/dL 0.1-1.1 H 1232334756) CALCIUM (test code = 9.8 mg/dL 8.6-10.6 4699813959) T PROTEIN (test code = 7.0 g/dL 6.3-8.2 2935988621) ALBUMIN (test code = 4.2 g/dL 3.5-5 6335723215) ALK PHOS (test code = 50 U/L 34-122 4994950435) ALTv (test code = 15 U/L 5-50 1742-6) AST(SGOT) (test code = 22 U/L 13-40 7206564675) eGFR Calculation mL/min/1.73m2 (Non-) (test code = 9373941657) eGFR Calculation mL/min/1.73m2 () (test code = 1716449893) ALYSSA (test code = ALYSSA) Association of [...] tests). Lab Interpretation Abnormal (test code = 15879-8) [facility]kinLipase [id number] 21:37:00 Test Item Value Reference Range Interpretation Comments LIPASE (test code = 4287455712) 161 U/L 0-220 Lab Interpretation (test code = Normal 86746-5) [facility] 1 [id number] 20:46:31HISTORY: Chest pain. TECHNIQUE: Portable AP view [...] Mild cardiomegaly. [facility]kinLaokic Acid Whole [id number] 20:43:00 Test Item Value Reference Range Interpretation Comments LACTIC ACID (test code = 1.91 mmol/L 0.3-2.6 3022897802) [facility] GLUCOSE (AUTOMATED)2020-03-07 20:58:00 Test Item Value Reference Range Interpretation Comments POCT GLU (test code = 4193569961) 216 mg/dL 70-110 H Lab Interpretation (test code = Abnormal 03085-6) [facility] GLUCOSE (AUTOMATED)2020-03-07 16:00:00 Test Item Value Reference Range Interpretation Comments POCT GLU (test code = 8228356726) 168 mg/dL 70-110 H Lab Interpretation (test code = Abnormal 01739-8) [facility] GLUCOSE (AUTOMATED)2020-03-07 13:07:00 Test Item Value Reference Range Interpretation Comments POCT GLU (test code = 1880310848) 148 mg/dL 70-110 H Lab Interpretation (test code = Abnormal 30974-5) [facility]TROP[facility] [id number] 11:27:00 Test Item Value Reference Range Interpretation Comments TROPONIN I (test 0.051 ng/mL See_Comment H [Automated code = 3936888020) message] The system which generated this result [...] ? Lab Interpretation Abnormal (test code = 74995-4) [facility] [id number] 11:24:00 Test Item Value Reference Range Interpretation Comments NT-proBNP (test code 336 pg/mL See_Comment [Autom ated = 7953725988) message] The system which generated this result transmitted reference range : <=450. The reference range was not used to interpret this result as normal/abnormal . ALYSSA (test code = ALYSSA) Biotin has been reported to cause a negative bias, interpret results relative to patient's use of biotin. Lab Interpretation Normal (test code = 55108-4) [facility]kin[facility] Metabolic Panel (NA, K, CL, CO2, GLUCOSE, BUN, CREATININE, CA)2020-03-07 11:14:00 Test Item Value Reference Range Interpretation Comments NA (test code = 138 mmol/L 135-145 7571418231) K (test code = 3.8 mmol/L 3.5-5 9784953567) CL (test code = 97 mmol/L 98-108 L 4799238261) CO2 TOTAL (test code = 30 mmol/L 23-31 9440208507) AGAP (test code = 2-16 2527028797) BUN (test code = 36 mg/dL 7-23 H 6675248140) GLUCOSE (test code = 140 mg/dL 70-110 H 8116275445) CREATININE (test code = 1.50 mg/dL 0.6-1.25 H 6846449703) CALCIUM (test code = 10.0 mg/dL 8.6-10.6 2579277175) eGFR Calculation mL/min/1.73m2 (Non-) (test code = 6503502775) eGFR Calculation mL/min/1.73m2 () (test code = 5976530075) ALYSSA (test code = ALYSSA) Association of [...] tests). Lab Interpretation Abnormal (test code = 95669-6) [facility]kinURIC [id number] 11:14:00 Test Item Value Reference Range Interpretation Comments URIC ACID (test code = 5193808929) 5.4 mg/dL 3.6-8 Lab Interpretation (test code = Normal 81252-3) [facility]CB WITH [id number] 10:53:00 Test Item Value Reference Range Interpretation [...] RDW-SD (test code = 45.1 fL 38.5-51.6 72927-6) RDW-CV (test code = 14.2 % 12.1-15.4 788-0) PLT (test code = See_Comment [Automated 777-3) message] The sy stem which generated this result transmitted reference range : 150 - 328 10*3/ ?L. The reference r corey was not used to interpret this result as normal/abnormal . MPV (test code = 9.8 fL 9.8-13 17470-8) NRBC/100 WBC (test See_Comment [Automat ed code = 0437748425) message] The system which generated this result transmitted reference range : 0.0 - 10.0 /100 WBCs. The refer ence range was not u sed to interpret th is result as normal/abnormal . NRBC x10^3 (test code <0.01 See_Comment [Auto mated = 2636838054) message] The s ystem which generated this result transmitted reference range : 10*3/?L. The reference range was not used to interpret this result as normal/abnormal . GRAN MAT (NEUT) % 51.0 % (test code = 770-8) IMM GRAN % (test code 0.50 % = 3110313793) LYMPH % (test code = 32.0 % 736-9) MONO % (test code = 11.3 % 5905-5) EOS % (test code = 4.3 % 713-8) BASO % (test code = 0.9 % 706-2) GRAN MAT x10^3(ANC) 2.85 10*3/uL 1.99-6.95 (test code = 1178765942) IMM GRAN x10^3 (test 0.03 10*3/uL 0-0.06 code = 3522452878) LYMPH x10^3 (test code 1.79 10*3/uL 1.09-3.23 = 731-0) MONO x10^3 (test code 0.63 10*3/uL 0.36-1.02 = 742-7) EOS x10^3 (test code = 0.24 10*3/uL 0.06-0.53 711-2) BASO x10^3 (test code 0.05 10*3/uL 0.01-0.09 = 704-7) Lab Interpretation Abnormal (test code = 60067-0) [facility] GLUCOSE (AUTOMATED)2020-03-06 22:46:00 Test Item Value Reference Range Interpretation Comments POCT GLU (test code = 9931697706) 209 mg/dL 70-110 H Lab Interpretation (test code = Abnormal 84548-3) [facility] GLUCOSE (AUTOMATED)2020-03-06 16:23:00 Test Item Value Reference Range Interpretation Comments POCT GLU (test code = 3043965320) 254 mg/dL 70-110 H Lab Interpretation (test code = Abnormal 14735-3) [facility] GLUCOSE (AUTOMATED)2020-03-06 12:51:00 Test Item Value Reference Range Interpretation Comments POCT GLU (test code = 3315466446) 126 mg/dL 70-110 H Lab Interpretation (test code = Abnormal 97700-8) [facility] [id number] 10:16:00 Test Item Value Reference Range Interpretation Comments TROPONIN I (test 0.056 ng/mL See_Comment H [Automated code = 2535089411) message] The system which generated this result [...] ? Lab Interpretation Abnormal (test code = 02193-9) [facility] (NA, K, CL, CO2, GLUCOSE, BUN, CREATININE, CA)2020-03-06 10:13:00 Test Item Value Reference Range Interpretation Comments NA (test code = 136 mmol/L 135-145 4084761485) K (test code = 4.1 mmol/L 3.5-5 1266076455) CL (test code = 95 mmol/L 98-108 L 5611052024) CO2 TOTAL (test code = 30 mmol/L 23-31 5555104541) AGAP (test code = 2-16 1795553218) BUN (test code = 35 mg/dL 7-23 H 3805460026) GLUCOSE (test code = 174 mg/dL 70-110 H 2639872310) CREATININE (test code = 1.67 mg/dL 0.6-1.25 H 6121316450) CALCIUM (test code = 9.7 mg/dL 8.6-10.6 2808489462) eGFR Calculation mL/min/1.73m2 (Non-) (test code = 4613642854) eGFR Calculation mL/min/1.73m2 () (test code = 5499141310) ALYSSA (test code = ALYSSA) Association of [...] tests). Lab Interpretation Abnormal (test code = 77455-5) [facility] WITH [id number] 09:16:00 Test Item Value Reference Range Interpretation Comments WBC (test code = See_Comment [Automated 8217-2) message] The sy stem which generated this result transmitted reference range : 4.20 - 10.70 10*3/?L. The reference range was not used to interpret this result as normal/abnormal . RBC (test code = See_Comment L [Automated 526-8) message] The sy stem which generated this [...] RDW-SD (test code = 45.6 fL 38.5-51.6 43815-8) RDW-CV (test code = 14.3 % 12.1-15.4 788-0) PLT (test code = See_Comment [Automated 777-3) message] The sy stem which generated this result transmitted reference range : 150 - 328 10*3/ ?L. The reference r corey was not used to interpret this result as normal/abnormal . MPV (test code = 9.8 fL 9.8-13 79429-5) NRBC/100 WBC (test See_Comment [Automat ed code = 5600142449) message] The system which generated this result transmitted reference range : 0.0 - 10.0 /100 WBCs. The refer ence range was not u sed to interpret th is result as normal/abnormal . NRBC x10^3 (test code <0.01 See_Comment [Auto mated = 2316674925) message] The s ystem which generated this result transmitted reference range : 10*3/?L. The reference range was not used to interpret this result as normal/abnormal . GRAN MAT (NEUT) % 56.1 % (test code = 770-8) IMM GRAN % (test code 0.10 % = 9627105978) LYMPH % (test code = 29.7 % 736-9) MONO % (test code = 9.6 % 5905-5) EOS % (test code = 3.8 % 713-8) BASO % (test code = 0.7 % 706-2) GRAN MAT x10^3(ANC) 3.79 10*3/uL 1.99-6.95 (test code = 9124428647) IMM GRAN x10^3 (test <0.03 0-0.06 code = 7975065893) LYMPH x10^3 (test code 2.01 10*3/uL 1.09-3.23 = 731-0) MONO x10^3 (test code 0.65 10*3/uL 0.36-1.02 = 742-7) EOS x10^3 (test code = 0.26 10*3/uL 0.06-0.53 711-2) BASO x10^3 (test code 0.05 10*3/uL 0.01-0.09 = 704-7) Lab Interpretation Abnormal (test code = 28020-3) [facility]2020-03-06 01:25:00 Test Item Value Reference Range Interpretation Comments POCT GLU (test code = 6060039946) 208 mg/dL 70-110 H Lab Interpretation (test code = Abnormal 67973-1) [facility] [id number] 00:08:00 Test Item Value Reference Range Interpretation Comments TROPONIN I (test 0.047 ng/mL See_Comment H [Automated code = 7025230759) message] The system which generated this result [...] ? Lab Interpretation Abnormal (test code = 83090-7) [facility] GLUCOSE (AUTOMATED)2020-03-05 21:19:00 Test Item Value Reference Range Interpretation Comments POCT GLU (test code = 5203496637) 234 mg/dL 70-110 H Lab Interpretation (test code = Abnormal 95858-1) [facility] GLUCOSE (AUTOMATED)2020-03-05 16:55:00 Test Item Value Reference Range Interpretation Comments POCT GLU (test code = 4561844743) 258 mg/dL 70-110 H Lab Interpretation (test code = Abnormal 86604-5) [facility] GLUCOSE (AUTOMATED)2020-03-05 12:59:00 Test Item Value Reference Range Interpretation Comments POCT GLU (test code = 1682951751) 194 mg/dL 70-110 H Lab Interpretation (test code = Abnormal 83466-3) [facility] [id number] 10:54:00 Test Item Value Reference Range Interpretation Comments TROPONIN I (test 0.071 ng/mL See_Comment H [Automated code = 8170283101) message] The system which generated this result [...] ? Lab Interpretation Abnormal (test code = 18499-9) [facility] Metabolic Panel (NA, K, CL, CO2, GLUCOSE, BUN, CREATININE, CA)2020-03-05 10:43:00 Test Item Value Reference Range Interpretation Comments NA (test code = 139 mmol/L 135-145 2331285132) K (test code = 4.1 mmol/L 3.5-5 4406018183) CL (test code = 101 mmol/L 98-108 0361728490) CO2 TOTAL (test code = 27 mmol/L 23-31 1830746780) AGAP (test code = 2-16 3928313196) BUN (test code = 25 mg/dL 7-23 H 6059926050) GLUCOSE (test code = 243 mg/dL 70-110 H 4234300326) CREATININE (test code = 1.22 mg/dL 0.6-1.25 3448039074) CALCIUM (test code = 9.8 mg/dL 8.6-10.6 3605949173) eGFR Calculation mL/min/1.73m2 (Non-) (test code = 6373688644) eGFR Calculation mL/min/1.73m2 () (test code = 6687121128) ALYSSA (test code = ALYSSA) Association of [...] tests). Lab Interpretation Abnormal (test code = 19410-9) [facility] WITH [id number] 10:23:00 Test Item Value Reference Range Interpretation Comments WBC (test code = See_Comment [Automated message] 2790-2) The system [employer] generated this result transmitted ref erence range: 4.20 - 1 0.70 10*3/?L. The re ference range was not u sed to interpret this result as normal/abnor mal. RBC (test code = See_Comment [Automated message] 829-8) The system [employer] generated this result transmitted ref erence range: [...] RDW-SD (test code 47.8 fL 38.5-51.6 = 46874-1) RDW-CV (test code 14.4 % 12.1-15.4 = 788-0) PLT (test code = See_Comment [Automated message] 737-3) The system [employer] generated this result transmitted ref erence range: 150 - 32 8 10*3/?L. The re ference range was not u sed to interpret this result as normal/abnor mal. MPV (test code = 9.8 fL 9.8-13 26488-1) NRBC/100 WBC (test See_Comment [Automat ed message] code = 0417511632) The syste m which generated this result transmitted ref erence range: 0.0 - 10 .0 /100 WBCs. The refer ence range was not u sed to interpret this result as normal/abnor mal. NRBC x10^3 (test <0.01 See_Comment [Automated message] code = 0585966596) The syste m which generated this result transmitted ref erence range: 10*3/?L. The reference range was not used to interpr et this result as normal/abnormal . GRAN MAT (NEUT) % 48.8 % (test code = 770-8) IMM GRAN % (test 0.20 % code = 9262779930) LYMPH % (test code 34.7 % = 736-9) MONO % (test code 10.8 % = 5905-5) EOS % (test code = 4.9 % 713-8) BASO % (test code 0.6 % = 706-2) GRAN MAT 2.49 10*3/uL 1.99-6.95 x10^3(ANC) (test code = 9901299091) IMM GRAN x10^3 <0.03 0-0.06 (test code = 5637154653) LYMPH x10^3 (test 1.77 10*3/uL 1.09-3.23 code = 731-0) MONO x10^3 (test 0.55 10*3/uL 0.36-1.02 code = 742-7) EOS x10^3 (test 0.25 10*3/uL 0.06-0.53 code = 711-2) BASO x10^3 (test 0.03 10*3/uL 0.01-0.09 code = 704-7) [facility] 1 [id number] 03:06:08 No acute cardiopulmonary process. Unchanged enlargement [...] [facility] COVID-19 [id number] 00:34:00 Test Item Value Reference Range Interpretation Comments SARS-CoV-2 (test code = Not Detected Not Detected 80704-6) ALYSSA (test code = ALYSSA) ID NOW COVID-19 Assay is an isothermal nucleic acid amplification test intended for the qualitative detection of nucleic acid from SARS-CoV-2 viral RNA in nasopharyngeal (HEEL EMERY BUFFER) specimens. It is used under Emergency Use [...] indicated. Lab Interpretation Normal (test code = 92440-8) [facility] [id number] 00:08:00 Test Item Value Reference Range Interpretation Comments TROPONIN I (test 0.056 ng/mL See_Comment H [Automated code = [id number]) message] The system which generated this result [...] ? Lab Interpretation Abnormal (test code = 17799-4) [facility] [id number] 00:04:00 Test Item Value Reference Range Interpretation Comments NT-proBNP (test code 562 pg/mL See_Comment H [Autom ated = 0196558117) message] The system which generated this result transmitted reference range : <=450. The reference range was not used to interpret this result as normal/abnormal . ALYSSA (test code = ALYSSA) Biotin has been reported to cause a negative bias, interpret results relative to patient's use of biotin. Lab Interpretation Abnormal (test code = 96483-8) [facility]thrombin Time (PT) / [id number] 23:57:00 Test Item Value Reference Range Interpretation [...] tions. Lab Interpretation (test Normal code = 29094-4) [facility] Metabolic Panel (NA, K, CL, CO2, GLUCOSE, BUN, CREATININE, CA)2020-03-04 23:56:00 Test Item Value Reference Range Interpretation Comments NA (test code = 139 mmol/L 135-145 3222291898) K (test code = 4.1 mmol/L 3.5-5 3950868474) CL (test code = 102 mmol/L 98-108 1831995431) CO2 TOTAL (test code = 29 mmol/L 23-31 9919816511) AGAP (test code = 2-16 4380257337) BUN (test code = 23 mg/dL 7-23 3386576303) GLUCOSE (test code = 193 mg/dL 70-110 H 9022289788) CREATININE (test code = 1.25 mg/dL 0.6-1.25 8242975618) CALCIUM (test code = 9.7 mg/dL 8.6-10.6 8111074112) eGFR Calculation mL/min/1.73m2 (Non-) (test code = 2670856571) eGFR Calculation mL/min/1.73m2 () (test code = 4152910108) ALYSSA (test code = ALYSSA) Association of [...] tests). Lab Interpretation Abnormal (test code = 28953-9) [facility] (ALB, T.PRO, BILI T, BU/BC, ALT, AST, ALK PHOS)2020-03-04 23:56:00 Test Item Value Reference Range Interpretation Comments TOTAL BILI (test code = 9517858283) 1.1 mg/dL 0.1-1.1 BILI UNCON (test code = 0829027355) 1.1 mg/dL 0.1-1.1 BILI CONJ (test code = 9902331438) 0.0 mg/dL 0-0.3 T PROTEIN (test code = 0071349329) 7.1 g/dL 6.3-8.2 ALBUMIN (test code = 5587841084) 4.1 g/dL 3.5-5 ALK PHOS (test code = 4858451150) 61 U/L 34-122 ALTv (test code = 1742-6) 16 U/L 5-50 AST(SGOT) (test code = 1404005464) 23 U/L 13-40 Lab Interpretation (test code = Normal 89954-1) [facility]kinLipase [id number] 23:56:00 Test Item Value Reference Range Interpretation Comments LIPASE (test code = 6721904754) 149 U/L 0-220 Lab Interpretation (test code = Normal 62606-4) [facility]inaPTT2020-04-19 23:56:00 Test Item Value Reference Range Interpretation Comments APTT Patient (test See_Comment [Automat ed code = 3173-2) message] The system which generated this result transmitted reference range : 23 - 38 Seconds . The reference range was not used to interpr et this result as normal/abnormal . ALYSSA (test code = ALYSSA) The [facility] patient population mean normal value for aPTT is 30 seconds. Lab Interpretation Normal (test code = 95703-0) [facility] WITH [id number] 23:46:00 Test Item Value Reference Range Interpretation [...] RDW-SD (test code = 48.3 fL 38.5-51.6 41389-8) RDW-CV (test code = 14.7 % 12.1-15.4 788-0) PLT (test code = See_Comment [Automated 777-3) message] The sy stem which generated this result transmitted reference range : 150 - 328 10*3/ ?L. The reference r corey was not used to interpret this result as normal/abnormal . MPV (test code = 9.8 fL 9.8-13 64679-6) NRBC/100 WBC (test See_Comment [Automat ed code = 2008971788) message] The system which generated this result transmitted reference range : 0.0 - 10.0 /100 WBCs. The refer ence range was not u sed to interpret th is result as normal/abnormal . NRBC x10^3 (test code <0.01 See_Comment [Auto mated = 8776370524) message] The s ystem which generated this result transmitted reference range : 10*3/?L. The reference range was not used to interpret this result as normal/abnormal . GRAN MAT (NEUT) % 60.1 % (test code = 770-8) IMM GRAN % (test code 0.20 % = 3684065123) LYMPH % (test code = 26.4 % 736-9) MONO % (test code = 9.9 % 5905-5) EOS % (test code = 2.8 % 713-8) BASO % (test code = 0.6 % 706-2) GRAN MAT x10^3(ANC) 3.17 10*3/uL 1.99-6.95 (test code = 8289527257) IMM GRAN x10^3 (test <0.03 0-0.06 code = 0625345226) LYMPH x10^3 (test code 1.39 10*3/uL 1.09-3.23 = 731-0) MONO x10^3 (test code 0.52 10*3/uL 0.36-1.02 = 742-7) EOS x10^3 (test code = 0.15 10*3/uL 0.06-0.53 711-2) BASO x10^3 (test code 0.03 10*3/uL 0.01-0.09 = 704-7) Lab Interpretation Abnormal (test code = 50068-3) [facility] GLUCOSE (AUTOMATED)2020-03-02 16:04:00 Test Item Value Reference Range Interpretation Comments POCT GLU (test code = 4505101036) 214 mg/dL 70-110 H Lab Interpretation (test code = Abnormal 46289-4) [facility] GLUCOSE (AUTOMATED)2020-03-02 16:04:00 Test Item Value Reference Range Interpretation Comments POCT GLU (test code = 1303976776) 271 mg/dL 70-110 H Lab Interpretation (test code = Abnormal 48264-2) [facility]kinN-TERMINAL [id number] 09:43:00 Test Item Value Reference Range Interpretation Comments NT-proBNP (test code 1670 pg/mL See_Comment H [Autom ated = 3845960650) message] The system which generated this result transmitted reference range : <=450. The reference range was not used to interpret this result as normal/abnormal . ALYSSA (test code = ALYSSA) Biotin has been reported to cause a negative bias, interpret results relative to patient's use of biotin. Lab Interpretation Abnormal (test code = 55076-2) [facility] METABOLIC PANEL (NA, K, CL, CO2, GLUCOSE, BUN, CREATININE, CA)2020-03-02 09:33:00 Test Item Value Reference Range Interpretation Comments NA (test code = 143 mmol/L 135-145 2868070838) K (test code = 3.8 mmol/L 3.5-5 3259424334) CL (test code = 105 mmol/L 98-108 5092463427) CO2 TOTAL (test code = 28 mmol/L 23-31 3155970065) AGAP (test code = 2-16 9397325969) BUN (test code = 19 mg/dL 7-23 9393458043) GLUCOSE (test code = 152 mg/dL 70-110 H 3867847014) CREATININE (test code = 1.18 mg/dL 0.6-1.25 4924153176) CALCIUM (test code = 9.0 mg/dL 8.6-10.6 9712351716) eGFR Calculation mL/min/1.73m2 (Non-) (test code = 0188805802) eGFR Calculation mL/min/1.73m2 () (test code = 3185138058) ALYSSA (test code = ALYSSA) Association of [...] tests). Lab Interpretation Abnormal (test code = 77390-9) [facility]kinMAGNESIUM2020-04-17 09:33:00 Test Item Value Reference Range Interpretation Comments MAGNESIUM (test code = 0450549370) 1.8 mg/dL 1.7-2.4 Lab Interpretation (test code = Normal 70708-8) [facility]POCT GLUCOSE (AUTOMATED)2020-03-01 20:42:00 Test Item Value Reference Range Interpretation Comments POCT GLU (test code = 2854093012) 231 mg/dL 70-110 H Lab Interpretation (test code = Abnormal 58991-5) [facility]kinVITAMIN B12, [id number] 11:51:00 Test Item Value Reference Range Interpretation Comments VIT B12 (test code = 325 pg/mL 240-930 8669949819) ALYSSA (test code = ALYSSA) Biotin has been reported to cause a positive bias, interpret results relative to patient's use of biotin. Lab Interpretation (test Normal code = 17362-5) [facility]kinFOLATE2020-04-16 11:49:00 Test Item Value Reference Range Interpretation Comments FOLATE SER (test code = >20.0 3-20 H Slig ht hemolysis 1692244257) Lab Interpretation (test Abnormal code = 77665-2) [facility]kinPROCALCITONIN2020-04-16 10:49:00 Test Item Value Reference Range Interpretation Comments Procalcitonin (test 3.05 ng/mL <0.07 H code = 8164247386) ALYSSA (test code = ALYSSA) INTERPRETATION OF [...] lung abscess/empyema. For further information please refer to:[email or web address] Lab Interpretation Abnormal (test code = 53716-0) [facility]kinTROPONIN [id number] 09:58:00 Test Item Value Reference Range Interpretation Comments TROPONIN I (test 0.093 ng/mL See_Comment H [Automated code = 3009775403) message] The system which generated this result [...] ? Lab Interpretation Abnormal (test code = 83560-5) [facility]kinN-TERMINAL [id number] 09:55:00 Test Item Value Reference Range Interpretation Comments NT-proBNP (test code 4450 pg/mL See_Comment H [Autom ated = 1584104139) message] The system which generated this result transmitted reference range : <=450. The reference range was not used to interpret this result as normal/abnormal . ALYSSA (test code = ALYSSA) Biotin has been reported to cause a negative bias, interpret results relative to patient's use of biotin. Lab Interpretation Abnormal (test code = 48099-1) [facility] (NA, K, CL, CO2, GLUCOSE, BUN, CREATININE, CA)2020-03-01 09:50:00 Test Item Value Reference Range Interpretation Comments NA (test code = 141 mmol/L 135-145 9565395239) K (test code = 3.5 mmol/L 3.5-5 7492434059) CL (test code = 105 mmol/L 98-108 3774587730) CO2 TOTAL (test code = 26 mmol/L 23-31 3050725356) AGAP (test code = 2-16 8836210384) BUN (test code = 13 mg/dL 7-23 3100408282) GLUCOSE (test code = 219 mg/dL 70-110 H 3222879844) CREATININE (test code = 1.01 mg/dL 0.6-1.25 8461461278) CALCIUM (test code = 8.7 mg/dL 8.6-10.6 4267535175) eGFR Calculation mL/min/1.73m2 (Non-) (test code = 8284521568) eGFR Calculation mL/min/1.73m2 () (test code = 7847866190) ALYSSA (test code = ALYSSA) Association of [...] tests). Lab Interpretation Abnormal (test code = 21519-5) [facility]kinMagnesium [id number] 09:50:00 Test Item Value Reference Range Interpretation Comments MAGNESIUM (test code = 5901067166) 1.9 mg/dL 1.7-2.4 Lab Interpretation (test code = Normal 40405-0) [facility] WITH [id number] 09:22:00 Test Item Value Reference Range Interpretation [...] RDW-SD (test code = 47.8 fL 38.5-51.6 58960-2) RDW-CV (test code = 14.8 % 12.1-15.4 788-0) PLT (test code = See_Comment L [Automated 777-3) message] The sy stem which generated this result transmitted reference range : 150 - 328 10*3/ ?L. The reference r corey was not used to interpret this result as normal/abnormal . MPV (test code = 9.9 fL 9.8-13 62559-9) NRBC/100 WBC (test See_Comment [Automat ed code = 8973762087) message] The system which generated this result transmitted reference range : 0.0 - 10.0 /100 WBCs. The refer ence range was not u sed to interpret th is result as normal/abnormal . NRBC x10^3 (test code <0.01 See_Comment [Auto mated = 9407889477) message] The s ystem which generated this result transmitted reference range : 10*3/?L. The reference range was not used to interpret this result as normal/abnormal . GRAN MAT (NEUT) % 66.0 % (test code = 770-8) IMM GRAN % (test code 0.30 % = 3091523467) LYMPH % (test code = 20.8 % 736-9) MONO % (test code = 9.5 % 5905-5) EOS % (test code = 2.8 % 713-8) BASO % (test code = 0.6 % 706-2) GRAN MAT x10^3(ANC) 4.44 10*3/uL 1.99-6.95 (test code = 7881277428) IMM GRAN x10^3 (test <0.03 0-0.06 code = 1547565379) LYMPH x10^3 (test code 1.40 10*3/uL 1.09-3.23 = 731-0) MONO x10^3 (test code 0.64 10*3/uL 0.36-1.02 = 742-7) EOS x10^3 (test code = 0.19 10*3/uL 0.06-0.53 711-2) BASO x10^3 (test code 0.04 10*3/uL 0.01-0.09 = 704-7) Lab Interpretation Abnormal (test code = 09614-1) [facility]kinGLYCOSYLATED HEMOGLOBIN [...] Indicated Lab Interpretation Abnormal (test code = 16617-9) [facility]kinURIC [id number] 06:25:00 Test Item Value Reference Range Interpretation Comments URIC ACID (test code = 8258895019) 2.3 mg/dL 3.6-8 L Lab Interpretation (test code = Abnormal 54814-0) [facility] LufkinSEDIMENTATION [id number] 05:25:00 Test Item Value Reference Range Interpretation Comments ESR (test code = See_Comment H [Automated message] 5810942192) The system [employer] generated this result transmitted ref erence range: 0 - 10 m m/HR. The reference r corey was not used to interpret this result as normal/abnor mal. Lab Interpretation (test Abnormal code = 06764-0) [facility]kinN-TERMINAL [id number] 04:07:00 Test Item Value Reference Range Interpretation Comments NT-proBNP (test code 4080 pg/mL See_Comment H [Autom ated = 9785657393) message] The system which generated this result transmitted reference range : <=450. The reference range was not used to interpret this result as normal/abnormal . ALYSSA (test code = ALYSSA) Biotin has been reported to cause a negative bias, interpret results relative to patient's use of biotin. Lab Interpretation Abnormal (test code = 62523-6) [facility]kinPOCT GLUCOSE (AUTOMATED)2020-03-01 03:42:00 Test Item Value Reference Range Interpretation Comments POCT GLU (test code = 5628936087) 190 mg/dL 70-110 H Lab Interpretation (test code = Abnormal 33495-3) [facility]kinTROPONIN [id number] 03:30:00 Test Item Value Reference Range Interpretation Comments TROPONIN I (test 0.098 ng/mL See_Comment H [Automated code = 3211687709) message] The system which generated this result [...] ? Lab Interpretation Abnormal (test code = 56638-2) [facility]kinHEPATIC FUNCTION PANEL (55753) (ALB,T.PRO,BILI T,BU/BC,ALT,AST,ALK PHOS)2020-03-01 03:24:00 Test Item Value Reference Range Interpretation Comments TOTAL BILI (test code = 4869772830) 2.2 mg/dL 0.1-1.1 H BILI UNCON (test code = 0806803597) 2.0 mg/dL 0.1-1.1 H BILI CONJ (test code = 7735064683) 0.0 mg/dL 0-0.3 T PROTEIN (test code = 6150612565) 6.7 g/dL 6.3-8.2 ALBUMIN (test code = 5422478090) 4.0 g/dL 3.5-5 ALK PHOS (test code = 2455695006) 48 U/L 34-122 ALTv (test code = 1742-6) 18 U/L 5-50 AST(SGOT) (test code = 8660418579) 57 U/L 13-40 H Lab Interpretation (test code = Abnormal 05329-1) [facility]kinPhosphorus [id number] 03:17:00 Test Item Value Reference Range Interpretation Comments PHOSPHORUS (test code = 3.1 mg/dL 2.5-5 Slig ht hemolysis 5581394043) Lab Interpretation (test Normal code = 59377-1) [facility]ufkinPROTHROMBIN TIME / [id number] 03:08:00 Test Item Value Reference Range Interpretation [...] tions. Lab Interpretation (test Normal code = 94593-2) [facility]kinCREATINE [id number] 03:01:00 Test Item Value Reference Range Interpretation Comments CK (test code = 4952499200) 68 U/L 33-194 Lab Interpretation (test code = Normal 78198-5) [facility]kinURIC [id number] 02:41:00 Test Item Value Reference Range Interpretation Comments URIC ACID (test code = 5088971451) 2.3 mg/dL 3.6-8 L Lab Interpretation (test code = Abnormal 02152-6) [facility]kinTHYROID STIMULATING [id number] 02:26:00 Test Item Value Reference Range Interpretation Comments TSH (test code = See_Comment [Automated message] 3277417562) The system ic h generated this result transmitted ref erence range: 0.45 - 4 .70 mIU/L. The refe rence range was not u sed to interpret this result as normal/abnor mal. Lab Interpretation (test Normal code = 89974-1) [facility]kinN-TERMINAL [id number] 02:04:00 Test Item Value Reference Range Interpretation Comments NT-proBNP (test code 4390 pg/mL See_Comment H [Autom ated = 6574809281) message] The system which generated this result transmitted reference range : <=450. The reference range was not used to interpret this result as normal/abnormal . ALYSSA (test code = ALYSSA) Biotin has been reported to cause a negative bias, interpret results relative to patient's use of biotin. Lab Interpretation Abnormal (test code = 23811-4) [facility]kinMAGNESIUM2020-04-16 02:01:00 Test Item Value Reference Range Interpretation Comments MAGNESIUM (test code = 2831480330) 1.5 mg/dL 1.7-2.4 L Lab Interpretation (test code = Abnormal 81395-8) [facility]ufkinLIPASE2020-04-16 00:22:00 Test Item Value Reference Range Interpretation Comments LIPASE (test code = 2217201749) 68 U/L 0-220 Lab Interpretation (test code = Normal 81397-3) [facility]kinCORONAVIRUS COVID-19 [id number] 23:42:00 Test Item Value Reference Range Interpretation Comments SARS-CoV-2 (test code = Not Detected Not Detected 99724-3) ALYSSA (test code = ALYSSA) ID NOW COVID-19 Assay is an isothermal nucleic acid amplification test intended for the qualitative detection of nucleic acid from SARS-CoV-2 viral RNA in nasopharyngeal (HEEL EMERY BUFFER) specimens. It is used under Emergency Use [...] indicated. Lab Interpretation Normal (test code = 69147-3) [facility]kinXR CHEST 1 VW [id number] 23:26:02 No acute intrathoracic abnormality, specifically no radiographic findingsto suggest COVID-19 pneumonia. Disclaimer: Generally, the findings on chest imaging in COVID-19 are notspecific, and overlap with other infections, including influenza, H1N1,SARS and MERS. According to the Centers for Disease Control (CDC) and recent statement ofthe [employer] [employer], viral testing remains the [...] stimulating device overlie the mid thoracic spine. [facility], Radiant ResultsInft User - 02/29/2020 6:27 [...] Disease Control (CDC) and recent statement ofthe [employer] [place] [employer], viral testing remains the only specificmethod of diagnosis. Confirmation with the viral test is required, even ifradiologic findings are suggestive of COVID-[address]. Preliminary Report Dictated by Resident: Radu Boo MD., have reviewed this study and agree with theabovereport.[facility] LufkinWendy [id number] 22:59:00 Test Item Value Reference Range Interpretation Comments TROPONIN I (test 0.071 ng/mL See_Comment H [Automated code = 6423622174) message] The system which generated this result [...] ? Lab Interpretation Abnormal (test code = 90197-2) [facility] Met[facility] Panel (NA, K, CL, CO2, GLUCOSE, BUN, CREATININE, CA)2020-02-29 22:48:00 Test Item Value Reference Range Interpretation Comments NA (test code = 141 mmol/L 135-145 2661025381) K (test code = 3.2 mmol/L 3.5-5 L 2829702315) CL (test code = 104 mmol/L 98-108 4772160765) CO2 TOTAL (test code = 25 mmol/L 23-31 1232580599) AGAP (test code = 2-16 3869378330) BUN (test code = 12 mg/dL 7-23 5739113315) GLUCOSE (test code = 250 mg/dL 70-110 H 2154838869) CREATININE (test code = 1.02 mg/dL 0.6-1.25 2862726760) CALCIUM (test code = 8.9 mg/dL 8.6-10.6 4236429922) eGFR Calculation mL/min/1.73m2 (Non-) (test code = 0927064310) eGFR Calculation mL/min/1.73m2 () (test code = 6692717080) ALYSSA (test code = ALYSSA) Association of [...] tests). Lab Interpretation Abnormal (test code = 23173-2) [facility] WITH [id number] 22:41:00 Test Item Value Reference Range Interpretation Comments WBC (test code = See_Comment [Automated 3290-2) message] The sy stem which generated this result transmitted reference range : 4.20 - 10.70 10*3/?L. The reference range was not used to interpret this result as normal/abnormal . RBC (test code = See_Comment L [Automated 379-8) message] The sy stem which generated this [...] RDW-SD (test code = 46.6 fL 38.5-51.6 98987-2) RDW-CV (test code = 14.6 % 12.1-15.4 788-0) PLT (test code = See_Comment [Automated 777-3) message] The sy stem which generated this result transmitted reference range : 150 - 328 10*3/ ?L. The reference r corey was not used to interpret this result as normal/abnormal . MPV (test code = 9.7 fL 9.8-13 L 31013-5) NRBC/100 WBC (test See_Comment [Automat ed code = 9468797368) message] The system which generated this result transmitted reference range : 0.0 - 10.0 /100 WBCs. The refer ence range was not u sed to interpret th is result as normal/abnormal . NRBC x10^3 (test code <0.01 See_Comment [Auto mated = 8099375623) message] The s ystem which generated this result transmitted reference range : 10*3/?L. The reference range was not used to interpret this result as normal/abnormal . GRAN MAT (NEUT) % 68.6 % (test code = 770-8) IMM GRAN % (test code 0.30 % = 1328556419) LYMPH % (test code = 18.6 % 736-9) MONO % (test code = 10.1 % 5905-5) EOS % (test code = 1.8 % 713-8) BASO % (test code = 0.6 % 706-2) GRAN MAT x10^3(ANC) 4.29 10*3/uL 1.99-6.95 (test code = 7223714534) IMM GRAN x10^3 (test <0.03 0-0.06 code = 8242219299) LYMPH x10^3 (test code 1.16 10*3/uL 1.09-3.23 = 731-0) MONO x10^3 (test code 0.63 10*3/uL 0.36-1.02 = 742-7) EOS x10^3 (test code = 0.11 10*3/uL 0.06-0.53 711-2) BASO x10^3 (test code 0.04 10*3/uL 0.01-0.09 = 704-7) Lab Interpretation Abnormal (test code = 64333-5) [facility]ufkinLaokic Acid Whole [id number] 22:38:00 Test Item Value Reference Range Interpretation Comments LACTIC ACID (test code = 1.88 mmol/L 0.3-2.6 6664554989) [facility]ufkinPODC GLUCOSE (AUTOMATED)2020-01-17 18:18:00 Test Item Value Reference Range Interpretation Comments POCT GLU (test code = 3224764670) 290 mg/dL 70-110 H Lab Interpretation (test code = Abnormal 97211-7) [facility]kinTROPONIN [id number] 18:01:00 Test Item Value Reference Range Interpretation Comments TROPONIN I (test 0.065 ng/mL See_Comment H [Automated code = 2442303124) message] The system which generated this result [...] ? Lab Interpretation Abnormal (test code = 94150-2) [facility] LufkinaPTT2020-03-03 17:10:00 Test Item Value Reference Range Interpretation Comments APTT Patient (test See_Comment H [Automat ed code = 3173-2) message] The system which generated this result transmitted reference range : 23 - 38 Seconds . The reference range was not used to interpr et this result as normal/abnormal . ALYSSA (test code = ALYSSA) The [facility] patient population mean normal value for aPTT is 30 seconds. Lab Interpretation Abnormal (test code = 69223-4) [facility]kinPOCT GLUCOSE (AUTOMATED)2020-01-17 11:59:00 Test Item Value Reference Range Interpretation Comments POCT GLU (test code = 6852316680) 185 mg/dL 70-110 H Lab Interpretation (test code = Abnormal 28224-6) [facility]kinTROPONIN [id number] 11:23:00 Test Item Value Reference Range Interpretation Comments TROPONIN I (test 0.073 ng/mL See_Comment H [Automated code = 0504069398) message] The system which generated this result [...] ? Lab Interpretation Abnormal (test code = 62021-0) [facility] Metabolic Panel (NA, K, CL, CO2, GLUCOSE, BUN, CREATININE, CA)2020-01-17 11:16:00 Test Item Value Reference Range Interpretation Comments NA (test code = 136 mmol/L 135-145 2172966130) K (test code = 3.3 mmol/L 3.5-5 L 7117338292) CL (test code = 101 mmol/L 98-108 3544673720) CO2 TOTAL (test code = 26 mmol/L 23-31 8486255571) AGAP (test code = 2-16 3487342939) BUN (test code = 19 mg/dL 7-23 9239986962) GLUCOSE (test code = 227 mg/dL 70-110 H 5394231200) CREATININE (test code = 1.33 mg/dL 0.6-1.25 H 9522970713) CALCIUM (test code = 9.1 mg/dL 8.6-10.6 6036279899) eGFR Calculation mL/min/1.73m2 (Non-) (test code = 1315792504) eGFR Calculation mL/min/1.73m2 () (test code = 6498011242) ALYSSA (test code = ALYSSA) Association of [...] tests). Lab Interpretation Abnormal (test code = 44327-0) [facility] LufkinaPTT2020-03-03 11:00:00 Test Item Value Reference Range Interpretation Comments APTT Patient (test See_Comment H [Automat ed code = 3173-2) message] The system which generated this result transmitted reference range : 23 - 38 Seconds . The reference range was not used to interpr et this result as normal/abnormal . ALYSSA (test code = ALYSSA) The [facility] patient population mean normal value for aPTT is 30 seconds. Lab Interpretation Abnormal (test code = 46424-6) [facility]ufkinCB WITH [id number] 10:43:00 Test Item Value Reference Range Interpretation Comments WBC (test code = See_Comment [Automated message] 6690-2) The system [employer] generated this result transmitted ref erence range: 4.20 - 1 0.70 10*3/?L. The re ference range was not u sed to interpret this result as normal/abnor mal. RBC (test code = See_Comment [Automated message] 789-8) The system [employer] generated this result transmitted ref erence range: [...] RDW-SD (test code 41.5 fL 38.5-51.6 = 78388-9) RDW-CV (test code 12.8 % 12.1-15.4 = 788-0) PLT (test code = See_Comment [Automated message] 777-3) The system whic h generated this result transmitted ref erence range: 150 - 32 8 10*3/?L. The re ference range was not u sed to interpret this result as normal/abnor mal. MPV (test code = 10.7 fL 9.8-13 77754-9) NRBC/100 WBC (test See_Comment [Automat ed message] code = 2226708066) The syste m which generated this result transmitted ref erence range: 0.0 - 10 .0 /100 WBCs. The refer ence range was not u sed to interpret this result as normal/abnor mal. NRBC x10^3 (test <0.01 See_Comment [Automated message] code = 3088229480) The syste m which generated this result transmitted ref erence range: 10*3/?L. The reference range was not used to interpr et this result as normal/abnormal . GRAN MAT (NEUT) % 56.1 % (test code = 770-8) IMM GRAN % (test 0.30 % code = 8170536059) LYMPH % (test code 29.5 % = 736-9) MONO % (test code 9.9 % = 5905-5) EOS % (test code = 3.3 % 713-8) BASO % (test code 0.9 % = 706-2) GRAN MAT 3.73 10*3/uL 1.99-6.95 x10^3(ANC) (test code = 5875652370) IMM GRAN x10^3 <0.03 0-0.06 (test code = 1190156046) LYMPH x10^3 (test 1.96 10*3/uL 1.09-3.23 code = 731-0) MONO x10^3 (test 0.66 10*3/uL 0.36-1.02 code = 742-7) EOS x10^3 (test 0.22 10*3/uL 0.06-0.53 code = 711-2) BASO x10^3 (test 0.06 10*3/uL 0.01-0.09 code = 704-7) [facility] GLUCOSE (AUTOMATED)2020-01-17 01:49:00 Test Item Value Reference Range Interpretation Comments POCT GLU (test code = 6316356437) 305 mg/dL 70-110 H Lab Interpretation (test code = Abnormal 41991-0) [facility] GLUCOSE (AUTOMATED)2020-01-17 00:01:00 Test Item Value Reference Range Interpretation Comments POCT GLU (test code = 8819767149) 271 mg/dL 70-110 H Lab Interpretation (test code = Abnormal 76369-7) [facility] 22:23:00 Test Item Value Reference Range Interpretation Comments APTT Patient (test See_Comment H [Automat ed code = 3173-2) message] The system which generated this result transmitted reference range : 23 - 38 Seconds . The reference range was not used to interpr et this result as normal/abnormal . ALYSSA (test code = ALYSSA) The [facility] patient population mean normal value for aPTT is 30 seconds. Lab Interpretation Abnormal (test code = 47010-5) [facility] [id number] 21:22:00 Test Item Value Reference Range Interpretation Comments TROPONIN I (test 0.061 ng/mL See_Comment H [Automated code = 0077616702) message] The system which generated this result [...] ? Lab Interpretation Abnormal (test code = 27207-0) [facility]2020-01-16 17:37:00 Test Item Value Reference Range Interpretation Comments POCT GLU (test code = 4477765598) 271 mg/dL 70-110 H Lab Interpretation (test code = Abnormal 53107-7) [facility]2020-03-02 12:47:00 Test Item Value Reference Range Interpretation Comments APTT Patient (test See_Comment HH [Automat ed code = 3173-2) message] The system which generated this result transmitted reference range : 23 - 38 Seconds . The reference range was not used to interpr et this result as normal/abnormal . ALYSSA (test code = ALYSSA) The [facility] patient population mean normal value for aPTT is 30 seconds. Lab Interpretation Abnormal (test code = 81091-4) [facility] [id number] 12:35:00 Test Item Value Reference Range Interpretation Comments TROPONIN I (test 0.074 ng/mL See_Comment H [Automated code = 9321051172) message] The system which generated this result [...] ? Lab Interpretation Abnormal (test code = 20647-7) [facility]IP[facility] (61006)(TOTAL CHOLESTEROL, TRIGLYCERIDES, HDL)2020-01-16 12:23:00 Test Item Value Reference Range Interpretation Comments CHOL (test code = 95 mg/dL 120-200 L 5528483486) HDL (test code = 44 mg/dL >40 5319956591) HDLC RATIO (test code = See_Comment [Au tomated message] 5013357336) The system [employer] generated this result transmitted ref erence range: <=5.0. T he reference range was not used to int erpret this result as normal/abnormal . TRIG (test code = 89 mg/dL 30-170 8400972381) LDL CHOL (test code = 33 mg/dL See_Comment [Auto mated message] 21470-0) The system [employer] generated this result transmitted ref erence range: <=160. T he reference range was not used to int erpret this result as normal/abnormal . VLDL (test code = 18 mg/dL 5-60 6707759273) Lab Interpretation (test Abnormal code = 33135-7) [facility]cosylated Hemoglobin (A1C)2020-01-16 09:03:00 Test Item Value Reference Interpretation Comments Range HGB A1C (test code = See_Comment H [Autom ated 5848-4) message] The system which generated this result transmitted reference range : 4.0 - 6.0 % NGSP. The reference range was not used to interpret this result as normal/abnormal . ALYSSA (test code = %A1C (NGSP) ALYSSA) Interpretation (ADA)4.8-5.6 ? ? Normal or (Non-Diabetic Range)5.7-6.4 ? ? Increased Risk (Pre-Diabetic)>6.5 ?Diabetes Indicated Lab Interpretation Abnormal (test code = 01462-0) [facility]kinCritical [id number] 05:48:18Charanjit Heck MD ? ? 01/15/2020 11:48 [...] review of old charts and examination of patientUnNorth [facility] CampusProthrombin Time (PT) / [id number] 05:28:00 Test Item Value Reference Range Interpretation [...] tions. Lab Interpretation (test Normal code = 04761-0) [facility]2020-03-02 05:27:00 Test Item Value Reference Range Interpretation Comments APTT Patient (test See_Comment [Automat ed code = 3173-2) message] The system which generated this result transmitted reference range : 23 - 38 Seconds . The reference range was not used to interpr et this result as normal/abnormal . ALYSSA (test code = ALYSSA) The [facility] patient population mean normal value for aPTT is 30 seconds. Lab Interpretation Normal (test code = 01082-2) [facility]kin[facility]roponin [id number] 05:11:00 Test Item Value Reference Range Interpretation Comments TROPONIN I (test 0.075 ng/mL See_Comment H [Automated code = 0314331426) message] The system which generated this result [...] ? Lab Interpretation Abnormal (test code = 92314-2) [facility]kinN-TERMINAL [id number] 05:08:00 Test Item Value Reference Range Interpretation Comments NT-proBNP (test code 896 pg/mL See_Comment H [Autom ated = 6036399940) message] The system which generated this result transmitted reference range : <=450. The reference range was not used to interpret this result as normal/abnormal . ALYSSA (test code = ALYSSA) Biotin has been reported to cause a negative bias, interpret results relative to patient's use of biotin. Lab Interpretation Abnormal (test code = 01547-6) [facility]kin[facility]asi Metabolic Panel (NA, K, CL, CO2, GLUCOSE, BUN, CREATININE, CA)2020-01-16 04:59:00 Test Item Value Reference Range Interpretation Comments NA (test code = 136 mmol/L 135-145 5530851194) K (test code = 4.0 mmol/L 3.5-5 1932489083) CL (test code = 101 mmol/L 98-108 1724120021) CO2 TOTAL (test code = 27 mmol/L 23-31 7399705015) AGAP (test code = 2-16 5126371248) BUN (test code = 17 mg/dL 7-23 4008980288) GLUCOSE (test code = 445 mg/dL 70-110 H 6833933523) CREATININE (test code = 1.29 mg/dL 0.6-1.25 H 5799891244) CALCIUM (test code = 8.8 mg/dL 8.6-10.6 0548543415) eGFR Calculation mL/min/1.73m2 (Non-) (test code = 2194934918) eGFR Calculation mL/min/1.73m2 () (test code = 9894739341) ALYSSA (test code = ALYSSA) Association of [...] tests). Lab Interpretation Abnormal (test code = 36648-6) [facility]kinHepatic Function Panel (ALB, T.PRO, BILI T, BU/BC, ALT, AST, ALK PHOS)2020-01-16 04:59:00 Test Item Value Reference Range Interpretation Comments TOTAL BILI (test code = 4218419082) 1.3 mg/dL 0.1-1.1 H BILI UNCON (test code = 0928938642) 1.1 mg/dL 0.1-1.1 BILI CONJ (test code = 7805499665) 0.0 mg/dL 0-0.3 T PROTEIN (test code = 3414804611) 6.3 g/dL 6.3-8.2 ALBUMIN (test code = 1709776660) 3.9 g/dL 3.5-5 ALK PHOS (test code = 3749476470) 67 U/L 34-122 ALTv (test code = 1742-6) 15 U/L 5-50 AST(SGOT) (test code = 6607406464) 23 U/L 13-40 Lab Interpretation (test code = Abnormal 13850-2) [facility] 1 [id number] 04:54:13Impression: Moderate cardiomegaly without acute pulmonary process. RL: 460 AFC: [id number] Indication: Chest pain Comparison: None available Findings: Single AP view of the chest. The cardiopericardial silhouette ismoderately enlarged. The lungs are clear bilaterally. The visualized bonythorax is intact. A thoracic neurostimulator device is in place. [facility], Radiant Results Inft User - 01/15/2020 10:55 PM CSTIndication: Chest painComparison: None availableFindings: Single AP view of the chest. The cardiopericardial silhouette ismoderately enlarged. The lungs are clear bilaterally. The visualized bonythorax is intact. A thoracic neurostimulator device is in place.IMPRESSIONImpression:Moderate cardiomegaly without acute pulmonary process.RL: 460AFC: [id number] signed by Esperanza Rosado MD, PhD at 01/15/2020 10:54 [facility] WITH [id number] 04:51:00 Test Item Value Reference Range Interpretation [...] RDW-SD (test code = 40.7 fL 38.5-51.6 69802-5) RDW-CV (test code = 12.8 % 12.1-15.4 788-0) PLT (test code = See_Comment L [Automated 777-3) message] The sy stem which generated this result transmitted reference range : 150 - 328 10*3/ ?L. The reference r corey was not used to interpret this result as normal/abnormal . MPV (test code = 10.6 fL 9.8-13 95270-7) IPF % (test code = 2.8 % 1.2-10.7 Platelet count 3330129172) measured by fluorescence method. NRBC/100 WBC (test See_Comment [Automat ed code = 4153399390) message] The system which generated this result transmitted reference range : 0.0 - 10.0 /100 WBCs. The refer ence range was not u sed to interpret th is result as normal/abnormal . NRBC x10^3 (test code <0.01 See_Comment [Auto mated = 2678406318) message] The s ystem which generated this result transmitted reference range : 10*3/?L. The reference range was not used to interpret this result as normal/abnormal . GRAN MAT (NEUT) % 56.0 % (test code = 770-8) IMM GRAN % (test code 0.20 % = 2476652741) LYMPH % (test code = 30.5 % 736-9) MONO % (test code = 9.6 % 5905-5) EOS % (test code = 2.8 % 713-8) BASO % (test code = 0.9 % 706-2) GRAN MAT x10^3(ANC) 2.98 10*3/uL 1.99-6.95 (test code = 7315406808) IMM GRAN x10^3 (test <0.03 0-0.06 code = 7305198845) LYMPH x10^3 (test code 1.62 10*3/uL 1.09-3.23 = 731-0) MONO x10^3 (test code 0.51 10*3/uL 0.36-1.02 = 742-7) EOS x10^3 (test code = 0.15 10*3/uL 0.06-0.53 711-2) BASO x10^3 (test code 0.05 10*3/uL 0.01-0.09 = 704-7) Lab Interpretation Abnormal (test code = 47646-6) [facility]"
[2022-02-28] MEDS ORDERED: ONDANSETRON 4 MG/2 ML VIAL ONE (14:00)
[2022-02-28] MEDS ORDERED: MORPHINE 4 MG/ML SYR ONE (14:00)
--- NOTE | 2022-02-28 14:57 | RAD REPORT ---
EXAM DESCRIPTION: CT - Spine Lumbar Wo Con - 02/28/2022 2:51 pm CLINICAL HISTORY: Radiculopathy. back pain COMPARISON: Spine Lumbar Wo Con dated 01/16/2022; Spine Lumbar Wo Con dated 04/24/2021 TECHNIQUE: Axial noncontrast CT imaging of the lumbar spine was performed with coronal and sagittal re-formatted images. All CT scans are performed using dose optimization technique as appropriate and may include automated exposure control or mA/KV adjustment according to patient size. FINDINGS: No acute lumbar spine fracture seen. No aggressive marrow pattern or malalignment. Paraspinal tissues are normal in thickness. No paraspinal abscess or hematoma seen. There is posterior hardware present spanning L3-5. Prominent degenerative spondylosis is noted signif icant disc thinning and small posterior osteophyte at L5-S1. Sigmoid diverticulosis coli is present without diverticulitis. IMPRESSION: No acute lumbar spine abnormality is discerned. Postoperative lumbar spine with moderate spondylosis noted.
--- NOTE | 2022-02-28 15:06 | EDPHYS ---
Physician Documentation [facility] Name: Demetrius Sarmiento Age: 81 yrs Sex: Male : 1940 Arrival Date: 02/28/2022 Time: 13:18 Bed 25 Private MD: ED Physician Robert Clements HPI: 02/28 13:45 This 81 yrs old Male presents to ER via EMS with complaints of Back Pain. jh7 13:45 The patient presents with pain that is chronic, with no known mechanism of injury. The jh7 symptoms are located in the low back. Onset: The symptoms/episode began/occurred this morning. The pain radiates to the buttocks and left leg. Associated signs and symptoms: The patient has no apparent associated signs or symptoms. 81-year-old male presents with left-sided back pain starting this morning. The patient states that he got out of bed this morning and suddenly felt left-sided back pain that radiated down his left lower extremity. He denies numbness, tingling, dizziness, or weakness. He has a history of sciatica.. Historical: - Allergies: 13:26 No Known Allergies; jl7 - Home Meds: 13:26 aspirin 81 mg Oral TbEC 1 tab once daily [Active]; atorvastatin 40 mg Oral tab 1 tab jl7 nightly [Active]; clopidogrel 75 mg Oral tab 1 tab once daily [Active]; donepezil 5 mg Oral tab 1 tab nightly [Active]; furosemide 20 mg Oral tab 1 tab once daily [Active]; isosorbide mononitrate 120 mg Oral Tb24 1 tab once daily [Active]; Januvia 50 mg Oral tab 1 tab once daily [Active]; potassium chloride 10 mEq Oral TbER 1 tab once daily [Active]; - PMHx: 13:26 CAD; cardiac arrest; CHF; chronic kidney disease; Chronic pain; Diabetes - IDDM; High jl7 Cholesterol; Hypertension; Myocardial infarction; - PSHx: 13:26 4 heart stents; jl7 - Immunization history:: Adult Immunizations unknown. - Social history:: Smoking status: unknown. ROS: 13:45 Constitutional: Negative for fever, chills, and weight loss, Respiratory: Negative for jh7 shortness of breath, cough, wheezing, and pleuritic chest pain. 14:12 Cardiovascular: Negative for chest pain, palpitations, and edema, Abdomen/GI: Negative [facility] for abdominal pain, nausea, vomiting, diarrhea, and constipation. 14:12 Neuro: Negative for headache, weakness, numbness, tingling, and seizure. 14:12 Back: Positive for pain with movement, radiated pain, Pain radiates down LLE. jh7 14:12 Neuro: Negative for dizziness, numbness, tingling, weakness. 14:12 All other systems are negative. Exam: 14:12 Constitutional: This is a well developed, well nourished patient who is awake, alert, jh7 and in no acute distress. Cardiovascular: Regular rate and rhythm with a normal S1 and S2. No gallops, murmurs, or rubs. Normal PMI, no JVD. No pulse deficits. Respiratory: Lungs have equal breath sounds bilaterally, clear to auscultation and percussion. No rales, rhonchi or wheezes noted. No increased work of breathing, no retractions or nasal flaring. Abdomen/GI: Soft, non-tender, with normal bowel sounds. No distension or tympany. No guarding or rebound. No evidence of tenderness throughout. 14:12 Back: pain, that is moderate, of the left low back, ROM is painful, with all movement, muscle spasm, is appreciated in the left low back, Straight leg raises: left lower extremity illicits pain, Pain at the left of L4-L5 with no signs of trauma or tenderness to palpation. The pain radiates from the lower back down the left lower extremity.. 16:24 Neuro: Orientation: to person, place, time \T\ situation. Mentation: is normal. [facility] Vital Signs: 13:28 BP 124 / 96; Pulse 105; Resp 16; Temp 98; Pulse Ox 96% ; Pain 10/10; jl7 14:54 BP 130 / 79; Pulse 99; Resp 15; Pulse Ox 99% ; jl7 MDM: 13:26 Patient medically screened. [facility] 15:03 Data reviewed: vital signs, nurses notes, old medical records, radiologic studies, CT [facility] scan. Data interpreted: Pulse oximetry: on room air is 99 %. Interpretation: normal. Counseling: I had a detailed discussion with the patient and/or guardian regarding: the historical points, exam findings, and any diagnostic results supporting the discharge/admit diagnosis, lab results, radiology results, the need for outpatient follow up, a orthopedic surgeon, to return to the emergency department if symptoms worsen or persist or if there are any questions or concerns that arise at home. Response to treatment: the patient's symptoms have markedly improved after treatment. ED course: Patient feeling better after the morphine. CT without acute cord compression. Reviewed past admission labs and imaging as well. Patient hemodynamically stable. No focal deficits and no signs for saddle anesthesia. Needs to follow-up with orthospine and pain management at this point. Knows to come back if he were to worsening point time.. 02/28 14:39 Order name: Spine Lumbar Wo Con; Complete Time: 15:00 EDMS Administered Medications: 14:04 Drug: morphine 4 mg Route: IM; Site: left deltoid; jl7 14:04 Drug: Zofran (ondansetron) 4 mg Route: IM; Site: right deltoid; jl7 Disposition: 18:28 Co-signature as Attending Physician, Robert Clements DO I was immediately available on-site ms3 in the Emergency Department for consultation in the care of the patient.. Disposition Summary: 02/28/22 15:05 Discharge Ordered Location: Home [facility] Problem: new [facility] Symptoms: have improved [facility] Condition: Stable [facility] Diagnosis - Low back pain jh7 - Radiculopathy, lumbar region [facility] Followup: [facility] - With: Private Physician - When: 2 - 3 days - Reason: Recheck today's complaints, Continuance of care, Re-evaluation by your physician Discharge Instructions: - Discharge Summary Sheet jh7 - Acute Back Pain, Adult jh7 - Lumbosacral Radiculopathy [facility] Forms: - Medication Reconciliation Form 7 - Thank You Letter 7 - Antibiotic Education jh7 - Prescription Opioid Use [facility] Signatures: Dispatcher [employer] Emma Torres RN RN jl7 Robert Clements DO DO ms3 Halle Alston FNP FNP [facility] Corrections: (The following items were deleted from the chart) 14:16 14:12 Back: Positive for pain with movement, radiated pain, of the left flank and left jh7 low back, Pain at the left of L4-L5 radiating down left lower extremity. No deformity, swelling, or tenderness to palpation. Pain elicited with any movement of the left lower extremity., jh7
--- NOTE | 2022-02-28 15:06 | ER ---
Nurse's Notes [facility] Name: Demetrius Sarmiento Age: 81 yrs Sex: Male : 1940 Arrival Date: 02/28/2022 Time: 13:18 Bed 25 Private MD: Diagnosis: Low back pain;Radiculopathy, lumbar region Presentation: 02/28 13:19 Chief complaint: EMS states: pt was recently admitted here for back pain, still having iw left lower back pain, denies injury. Coronavirus screen: At this time, the client does not indicate any symptoms associated with coronavirus-19. Ebola Screen: Patient negative for fever greater than or equal to 101.5 degrees Fahrenheit, and additional compatible Ebola Virus Disease symptoms Patient denies exposure to infectious person. Patient denies travel to an Ebola-affected area in the 21 days before illness onset. No symptoms or risks identified at this time. Initial Sepsis Screen: Does the patient meet any 2 criteria? No. Patient's initial sepsis screen is negative. Does the patient have a suspected source of infection? No. Patient's initial sepsis screen is negative. Risk Assessment: Do you want to hurt yourself or someone else? Patient reports no desire to harm self or others. Onset of symptoms was February 28, 2022. 13:19 Method Of Arrival: EMS: [facility] iw 13:19 Acuity: LANCE 3 iw Triage Assessment: 13:28 General: Appears in no apparent distress. uncomfortable. jl7 Historical: - Allergies: 13:26 No Known Allergies; jl7 - Home Meds: 13:26 aspirin 81 mg Oral TbEC 1 tab once daily [Active]; atorvastatin 40 mg Oral tab 1 tab jl7 nightly [Active]; clopidogrel 75 mg Oral tab 1 tab once daily [Active]; donepezil 5 mg Oral tab 1 tab nightly [Active]; furosemide 20 mg Oral tab 1 tab once daily [Active]; isosorbide mononitrate 120 mg Oral Tb24 1 tab once daily [Active]; Januvia 50 mg Oral tab 1 tab once daily [Active]; potassium chloride 10 mEq Oral TbER 1 tab once daily [Active]; - PMHx: 13:26 CAD; cardiac arrest; CHF; chronic kidney disease; Chronic pain; Diabetes - IDDM; High jl7 Cholesterol; Hypertension; Myocardial infarction; - PSHx: 13:26 4 heart stents; jl7 - Immunization history:: Adult Immunizations unknown. - Social history:: Smoking status: unknown. Screenin:26 Abuse screen: Denies threats or abuse. Denies injuries from another. Nutritional jl7 screening: No deficits noted. Tuberculosis screening: No symptoms or risk factors identified. Assessment: 13:25 General: Appears in no apparent distress. uncomfortable, Behavior is cooperative, jl7 anxious. Pain: Complains of pain in left low back Pain radiates to left leg Pain currently is 10 out of 10 on a pain scale. Neuro: Level of Consciousness is awake, alert, obeys commands, Oriented to person, place, time, situation. Cardiovascular: Patient's skin is warm and dry. Respiratory: Airway Respiratory effort is even, unlabored, Respiratory pattern is regular, symmetrical. Derm: Skin is pink, warm \T\ dry. 14:30 Reassessment: Patient appears in no apparent distress at this time. No changes from jl7 previously documented assessment. Patient and/or family updated on plan of care and expected duration. Pain level reassessed. Patient is alert, oriented x 3, equal unlabored respirations, skin warm/dry/pink. Vital Signs: 13:28 BP 124 / 96; Pulse 105; Resp 16; Temp 98; Pulse Ox 96% ; Pain 10/10; jl7 14:54 BP 130 / 79; Pulse 99; Resp 15; Pulse Ox 99% ; jl7 ED Course: 13:18 Patient arrived in ED. jl7 13:20 Triage completed. iw 13:22 Emma Farnsworth, HERBIE is Primary Nurse. jl7 13:26 Halle Villalta FNP is PHCP. jh7 13:26 Robert Clements DO is Attending Physician. jh7 13:27 Patient has correct armband on for positive identification. Placed in gown. Bed in low jl7 position. Call light in reach. Side rails up X2. property assessment monitor on. Pulse ox on. NIBP on. 13:28 Arm band placed on right wrist. jl7 14:53 Spine Lumbar Wo Con In Process Unspecified. EDMS Administered Medications: 14:04 Drug: morphine 4 mg Route: IM; Site: left deltoid; jl7 14:04 Drug: Zofran (ondansetron) 4 mg Route: IM; Site: right deltoid; jl7 Outcome: 15:05 Discharge ordered by . keshawn 16:41 Patient left the ED. iw Signatures: Dispatcher [employer] Janina Resendiz RN RN iw Leal, Jahala, RN RN jl7 Halle Alston, EMR IMPLEMENTATION SPECIALIST FARIDEH jh7
[2022-02-28 18:11] VITALS: TEMP 98
[2022-02-28 18:12] VITALS: BP 130/79; O2SAT 99
== END 2022-02-28 16:41 | disposition home or self-care (01) ==
LOC: ER 13:17
DX: M54.16 Radiculopathy, lumbar region (principal); E11.22 Type 2 diabetes mellitus with diabetic chronic kidney disease; I13.0 Hypertensive heart and chronic kidney disease with heart failure and stage 1 through stage 4 chronic kidney disease, or unspecified chronic kidney disease; N18.9 Chronic kidney disease, unspecified; I50.9 Heart failure, unspecified; I25.2 Old myocardial infarction; Z79.82 Long term (current) use of aspirin; Z95.818 Presence of other cardiac implants and grafts
CPT/HCPCS: 72131; 96372; 99284; J2405

== ENCOUNTER 2022-03-13 13:28 | Emergency (ER) | payer OTHER ==
--- OUTSIDE RECORDS SUMMARY | 2022-03-13 13:40 | XMS REPORT | Continuity of Care Document ---
:1940 Author Organization [facility] t Address [address] [place] [address] Care Team Providers Name Role Phone Andres GARZA Primary Care Physician Unavailable Denny Attending Clinician Unavailable Lester Attending Clinician Unavailable DANIELLE MURGUIA Attending Clinician Unavailable Lulú AGUILAR Attending Clinician Unavailable Lulú Aguilar DO Attending Clinician ATTAR Attending Clinician Unavailable LAUREN Attending Clinician [...] Clinician Physician, Primary or Family Admitting Clinician UnavailDANIELLE West Admitting Clinician Unavailable Lulú AGUILAR Admitting Clinician Unavailable LAUREN Admitting Clinician Unavailable MD LAUREN O. 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 3-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 00:00: [place] and and 00 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 2018-11 U nivers lobe lobe 1-06 ity of pneumonia pneumonia 00:00: [facility] s 00 Medical Branch PNA PNA Disease Active 2018- Univers (pneumonia (pneumonia 0-25 it y of ) ) 00:00: [place] 00 Medical Branch Acute on Acute on Disease Active 2018-11 Unive rs chronic chronic 0-25 ity of combined combined 00:00: [place] systolic systolic 00 Medica l and and Branch 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 Dyspnea Dyspnea Disease Active 2018- Univers 0-23 ity of 00:00: [place] 00 Medical Branch CHF CHF Disease Active 2019- Univers exacerbati exacerbati 2-17 it y of on on 00:00: [place] 00 Medical Branch Essential Essential Disease Active 2019 Uni vers hypertensi hypertensi 2-17 it y of on on 00:00: [place] 00 Medical Branch 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 2-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 00:00: [place] without without 00 Medical complicati complicati Br anch on, on, without without long-term long-term current current use of use of insulin insulin CHF CHF Disease Active Univers exacerbati exacerbati 2-17 it y of on on 00:00: [place] 00 Medical Branch Acute on [...] 00:00: [place] involving involving 00 [place] 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 00:00: [place] disease disease 00 Medical Branch Coronary Coronary Disease Active Unive rs artery artery 1-27 ity of disease disease 00:00: [place] involving involving 00 [place] Branch 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 [...] Allergie 1-23 Clear s 00:00: [place] 00 [facility] NO KNOWN Drug Active Univers ALLERGIE Class ity of S [facility] Social History Social Habit Start Date Stop Date Quantity Comments Source Exposure to Unable to assess Univers ity of SARS-CoV-2 (event) [facility] History of tobacco User of [facility] sity of use smokeless [facility] tobacco [place] Alcohol intake 2022-03-01 2022-03-01 Current University of 00:00:00 00:00:00 non-drinker of [facility] alcohol [place] (finding) Cigarettes smoked 2018-12-11 2018-12-11 Univers ity of current (pack per 00:00:00 00:00:00 [facility] [place] [facility] ) - Reported Branch Cigarette 2018-12-11 2018-12-11 University of pack-years 00:00:00 00:00:00 [facility] Tobacco use and 2018-12-11 2018-12-11 Former user Universi ty of exposure 00:00:00 00:00:00 [facility] Sex Ass[birth year] At [birth year] Universit y of 00:00:00 00:00:00 [facility] Smoking Status Start Date Stop Date Source Former smoker 2018-12-11 00:00:00 2018-12-11 00:00:00 [facility] Medications Ordered Filled Start Stop Current Ordering Indication Dosage Frequency Signature Comments Components Source Medication Medication Date Date Medication? Clinician (SIG) Name Name FENTanyl PF No 25ug 25 mcg, Un mel (SUBLIMAZE 03-01 Intramuscu it y of (PF)) 16:45: 16:23 lar, ONCE, [place] injection 00 :00 1 dose, On Medi birdie 25 mcg [facility] 03/01/22 at 1145, Routine cyclobenzap No 10mg 10 mg, Uni vers rine 03-01 Oral, ity of (FLEXERIL) 14:00: 12:59 ONCE, 1 [place] tablet 10 00 :00 dose, On Medica l mg [facility] 03/01/22 at 0900, Routine HYDROcodone 2021- No 1{tbl} 1 tablet, Univers -acetaminop 03-01 Oral, ity of hen (NORCO 14:00: 12:59 ONCE, 1 [place] 5) 5-325 mg 00 :00 dose, On Medi birdie tablet 1 Sat Branch tablet 03/01/22 at 0900, ADAMA dexamethaso 2021- No 10mg 10 mg, Uni vers ne sod phos 4-16 -16 Oral, ity of PF 14:00: 13:00 ONCE, 1 [place] injection 00 :00 dose, On Medica l 10 mg Sat Branch 03/01/22 at 0900, 1 mL cyclobenzap Yes [id number] 10mg Take 1 Univers rine 10 mg -16 tablet by ity of tablet 00:00: mouth 3 [place] 00 (three) Medical times [place] daily as needed for Muscle Spasms. aspirin 81 2020-11- No [id number] 81mg Take 1 Univers mg chewable 2-04 12- tablet by it y of tablet 00:00: 05:59 mouth [place] 00 :00 daily for Medical 30 days. [place] clopidogreL 2020-11- No [id number] 75mg Take 1 Univers 75 mg 2-04 12- tablet by ity of tablet 00:00: 05:59 mouth [place] 00 :00 daily for Medical 30 days. [place] furosemide 2020-11- No [id number] 20mg Take 1 Univers 20 mg 2-04 12- tablet by ity of tablet 00:00: 05:59 mouth [place] 00 :00 daily for Medical 30 days. [place] aspirin 81 2020-11- No [id number] 81mg Take 1 Univers mg chewable 2-04 12- tablet by it y of tablet 00:00: 05:59 mouth [place] 00 :00 daily for Medical 30 days. [place] clopidogreL 2020-11- No [id number] 75mg Take 1 Univers 75 mg 2-19 - tablet by ity of tablet 00:00: 05:59 mouth [place] 00 :00 daily for Medical 30 days. Branch furosemide 2020-11- No [id number] 20mg Take 1 Univers 20 mg 2-19 - tablet by ity of tablet 00:00: 05:59 mouth [place] 00 :00 daily for Medical 30 days. [place] aspirin 81 2020-11- No [id number] 81mg Take 1 Univers mg chewable 2-19 - tablet by it y of tablet 00:00: 05:59 mouth [place] 00 :00 daily for Medical 30 days. Branch clopidogreL 2020-11- No [id number] 75mg Take 1 Univers 75 mg 01-04 tablet by ity of tablet 00:00: 05:59 mouth [place] 00 :00 daily for Medical 30 days. Branch furosemide 2020-11- No [id number] 20mg Take 1 Univers 20 mg 01-04 [...] Until Discontinu ed, Routine QUEtiapine 2020-11 Yes [id number] 25mg Take 1 Univers 25 mg 2-18 tablet by ity of tablet 00:00: mouth at [place] [address] bedtime as Medical needed Branch (agitation /insomnia) . QUEtiapine 2020-11 Yes [id number] 25mg Take 1 Univers 25 mg 2-18 tablet by ity of tablet 00:00: mouth at [place] [address] bedtime as Medical needed Branch (agitation /insomnia) . QUEtiapine 2020-11 Yes [id number] 25mg Take 1 Univers 25 mg 2-18 tablet by ity of tablet 00:00: mouth at [place] 00 bedtime as Medical needed Branch (agitation /insomnia) . QUEtiapine 2020-11 Yes [id number] 25mg Take 1 Univers 25 mg 2-18 tablet by ity of tablet 00:00: mouth at [place] 00 bedtime as Medical needed Branch (agitation /insomnia) . isosorbide 2020-11 No [id number] 60mg Take 1 Univers mononitrate 2-18 01-18 tablet by it y of 60 mg 24 hr 00:00: 05:59 mouth 2 [place] tablet 00 :00 (two) Medical times Branch daily for 30 days. metoprolol 2020-11- No [id number] 37.5mg Take 1.5 Univers succinate 2-18 -18 tablets by ity of XL 25 mg 24 00:00: 05:59 mouth 2 [place] hr tablet 00 :00 (two) Medical times Branch daily for 30 days. isosorbide 2020-11- No [id number] 60mg Take 1 Univers mononitrate 2-18 -18 tablet by it y of 60 mg 24 hr 00:00: 05:59 mouth 2 [place] tablet 00 :00 (two) Medical times Branch daily for 30 days. metoprolol 2020-11- No [id number] 37.5mg Take 1.5 Univers succinate 2-18 -18 tablets by ity of XL 25 mg 24 00:00: 05:59 mouth 2 [place] hr tablet 00 :00 (two) Medical times Branch daily for 30 days. isosorbide 2020-11- No [id number] 60mg Take 1 Univers mononitrate 2-18 -18 tablet by it y of 60 mg 24 hr 00:00: 05:59 mouth 2 [place] tablet 00 :00 (two) Medical times Branch daily for 30 days. metoprolol 2020-11- No [id number] 37.5mg Take 1.5 Univers succinate 2-18 -18 [...] dose [place] XL) tablet 00 :36 on Fri Medical 25 mg 11/01/21 Branch at 0830, [...] mg 03:00: First dose [place] 00 on [facility] Medical 10/31/21 Branch at 2100, Until Discontinu ed, Routine atorvastati 2020-11 Yes 40mg 40 mg, Univ ers n (LIPITOR) 2-17 Oral, QHS, it y of tablet 40 03:00: First dose [place] mg 00 on [facility] Medical 10/31/21 Branch at 2100, Until Discontinu ed, Routine clopidogreL 2020-11 Yes 75mg 75 mg, Univ ers (PLAVIX) 2-16 Oral, ity of tablet 75 23:30: DAILY, [place] mg 00 First dose Medical on Madhavi Branch 10/31/21 at 1730, Until Discontinu ed, Routine sulfur 2020-11- No [id number] 5mL 5 mL, Unive rs hexafluorid -10-31 Intravenou i ty of e microsphr 17:00: 17:00 s, ONCE, 1 [place] (LUMASON) 00 :00 dose, On Medica l injection 5 [place] Branch mL 10/31/21 at 1100, Routine
history faculty member approving Restricted medication : MEGGAN CAMARA isosorbide 2020-11- No 120mg 120 mg, Un mel mononitrate -31 10- Oral, ity of (IMDUR) 24 15:00: 14:16 [...] :35 = 1 mg/kg Medical ?78 kg), [facility], Q24H, First dose on Madhavi 10/31/21 at 0300, Until Discontinu ed, Routine aspirin 2020-11- No 325mg 325 mg, Unive rs tablet 325 01-01 Oral, ity of mg 08:45: 08:15 ONCE, 1 [place] 00 :00 dose, On Medical [facility] Branch 10/31/21 at 0245, Routine glucagon 2020-11 Yes 1mg 1 mg, Univers (GLUCAGEN - Intramuscu ity of DIAGNOSTIC 08:16: lar, PRN, [place] KIT) 15 Starting Medical injection 1 on [facility] Branch mg 10/31/21 at 0216, Until Discontinu ed, ADAMA, Blood Glucose < or = 70 mg/dL and patient is unable to swallow or has mental changes. dextrose 50 2020-11 Yes 25mL 25 mL, Univ ers % in water -16 Slow IV ity of (D50W) 08:16: Push, PRN, [place] injection 14 Starting Medica l 25 mL on [facility] Branch 10/31/21 at 0216, Until Discontinu ed, [...] IV Push, ity of (PF)) 05:32: Q6HPRN, [place] injection 4 10 Starting Medi birdie mg on Wed Branch 10/30/21 at 2332, Until Discontinu ed, Routine, Nausea and Vomiting (N/V) acetaminoph 2020-11 Yes 650mg 650 mg, Un mel en 2-16 Oral, ity of (TYLENOL) 05:31: Q6HPRN, [place] tablet 650 56 Starting Medic al mg on Thu Branch 10/30/21 at 2331, Until Discontinu ed, Routine, Pain (scale 1-3) acetaminoph 2020-11 Yes [id number] 1{tbl} 1 tablet, Univers en-codeine 2-16 Oral, ity of (TYLENOL 05:29: Q6HPRN, [place] #3) 300-30 29 Starting Medic al mg tablet 1 on Thu Branch tablet 10/30/21 at 2329, Until Discontinu ed, Routine, Pain (scale 4-6), Pain (scale 7-10) sodium 2020-11 Yes 5mL 5 mL, Univers chloride 2-16 Intravenou ity o f (NS) 01:21: s, PRN, [place] injection 5 02 Starting Medi birdie mL on Thu Branch 10/30/21 at 1921, Until Discontinu ed, Routine, IV line flushing morpHINE 2020- No 4mg 4 mg, Slow Un mel injection 4 6-10 06-10 IV Push, ity of mg 23:15: 22:23 ONCE, 1 [place] 00 :00 dose, [facility] Medical 04/25/21 at Branch 1815, STAT acetaminoph 2020-2020- No 1{tbl} 1 tablet, Univers en-codeine 6-10 06-10 Oral, ity of (TYLENOL 19:00: 17:52 ONCE, 1 [place] #3) 300-30 00 :00 dose, [place] Medi birdie mg tablet 1 04/25/21 at Br anch tablet 1400, ADAMA cyclobenzap 2021-0 2021- No 10mg 10 mg, Uni vers rine 6-10 06-10 Oral, ONCE ity of (FLEXERIL) 19:00: 17:52 NOW, 1 [place] tablet 10 00 :00 dose, [place] Medic al mg 04/25/21 at Branch 1400, ADAMA cyclobenzap 0 Yes [id number] 5mg Take 1 Univers rine 5 mg 6-10 tablet by ity o f tablet 00:00: mouth 3 [place] 00 (three) Medical times Branch daily. cyclobenzap 0 Yes [id number] 5mg Take 1 Univers rine 5 mg 6-10 tablet by ity o f tablet 00:00: mouth 3 [place] 00 (three) Medical times Branch daily. cyclobenzap 0 Yes [id number] 5mg Take 1 Univers rine 5 mg [...] pain, left sided low back pain cyclobenzap 0 Yes [id number] 5mg Take 1 Univers rine 5 mg [...] left sided low back pain cyclobenzap Yes [id number] 5mg Take 1 Univers rine 5 mg 6-10 tablet by ity o f tablet 00:00: mouth 3 [place] 00 (three) Medical times Branch daily. cyclobenzap 2021- No [id number] 5mg Take 1 Univers rine 5 mg 6-10 04-16 tablet by ity of tablet 00:00: 00:00 mouth 3 [place] 00 :00 (three) Medical times Branch daily. acetaminoph 2020-0 2020- No [id number] 1{tbl} Take 1 U [...] Take 1 Uni vers mg tablet 05-24 07-15 tablet by ity of 00:00: 04:59 mouth [place] 00 :00 every 8 Medical (eight) Branch hours as needed for Pain (scale 4-6) for up to 5 days. Indication s: acute pain insulin 2020-0 Yes 30U 30 Units, Unive rs glargine - Subcutaneo ity o f (LANTUS 14:00: us, DAILY, [place] U-100) 00 First dose Medical injection on [facility] Branch 30 Units 03/24/20 at 0900, Until Discontinu ed clopidogreL 2020-0 Yes 75mg 75 mg, Univ ers (PLAVIX) 03-24 Oral, ity of tablet 75 14:00: DAILY, [place] mg 00 First dose Medical on [facility] 03/24/20 at 0900, Until Discontinu ed, Routine insulin 2020-0 Yes 30U 30 Units, Unive rs glargine 03-24 Subcutaneo ity o f (LANTUS 14:00: [place], DAILY, [place] U-100) 00 First dose Medical injection on [facility] 30 Units 03/24/20 at 0900, Until Discontinu ed clopidogreL 2020-0 Yes 75mg 75 mg, Univ ers (PLAVIX) - Oral, ity of tablet 75 14:00: DAILY, [place] mg 00 First dose Medical on [facility] 03/24/20 at 0900, Until Discontinu ed, [...] First dose [place] mg 00 on [facility] 03/23/20 at Branch 2100, Until Discontinu ed, Routine atorvastati 2020-0 Yes 40mg 40 mg, Univ ers n (LIPITOR) 5-09 Oral, QHS, it y of tablet 40 02:00: First dose [place] mg 00 on Thu Medical 03/23/20 at Branch 2100, Until Discontinu ed, Routine aspirin 81 2020-0 Yes [id number] 81mg Take 1 U nivers mg chewable 5-09 tablet by ity of tablet 00:00: mouth [place] 00 daily with Medical breakfast. [place] furosemide 2020-0 Yes [id number] 20mg Take 1 U nivers 20 mg 5-09 tablet by ity of tablet 00:00: mouth [place] 00 daily. [facility] aspirin 81 2020-0 Yes [id number] 81mg Take 1 U nivers mg chewable 5-09 tablet by ity of tablet 00:00: mouth [place] 00 daily with Medical breakfast. [place] furosemide 2020-0 Yes [id number] 20mg Take 1 U nivers 20 mg 5-09 tablet by ity of tablet 00:00: mouth [place] 00 daily. [facility] aspirin 81 2020-0 Yes [id number] 81mg Take 1 U nivers mg chewable 5-09 tablet by ity of tablet 00:00: mouth [place] 00 daily with Medical breakfast. [place] furosemide 2020-0 Yes [id number] 20mg Take 1 U nivers 20 mg 5-09 tablet by ity of tablet 00:00: mouth [place] 00 daily. [facility] aspirin 81 2020-0 Yes [id number] 81mg Take 1 U nivers mg chewable 5-09 tablet by ity of tablet 00:00: mouth [place] 00 daily with Medical breakfast. [place] furosemide 2020-0 Yes [id number] 20mg Take 1 U nivers 20 mg 5-09 tablet by ity of tablet 00:00: mouth [place] 00 daily. [facility] aspirin 81 2020-0 Yes [id number] 81mg Take 1 U nivers mg chewable 5-09 tablet by ity of tablet 00:00: mouth [place] 00 daily with Medical breakfast. [place] furosemide 2020-0 Yes [id number] 20mg Take 1 U nivers 20 mg 5-09 tablet by ity of tablet 00:00: mouth [place] 00 daily. [facility] aspirin 81 2020-0 Yes [id number] 81mg Take 1 U nivers mg chewable 5-09 tablet by ity of tablet 00:00: mouth [place] 00 daily with Medical breakfast. [place] furosemide 2020-0 Yes [id number] 20mg Take 1 U nivers 20 mg 5-09 tablet by ity of tablet 00:00: mouth [place] 00 daily. Medical Branch aspirin 81 2020-0 Yes [id number] 81mg Take 1 U nivers mg chewable 5-09 tablet by ity of tablet 00:00: mouth [place] 00 daily with Medical breakfast. Branch furosemide 2020-0 Yes [id number] 20mg Take 1 U nivers 20 mg 5-09 tablet by ity of tablet 00:00: mouth [place] 00 daily. Medical Branch aspirin 81 2020-0 Yes [id number] 81mg Take 1 U nivers mg chewable 5-09 tablet by ity of tablet 00:00: mouth [place] 00 daily with Medical breakfast. Branch furosemide 2020-0 Yes [id number] 20mg Take 1 U nivers 20 mg 5-09 tablet by ity of tablet 00:00: mouth [place] 00 daily. Medical Branch aspirin 81 2020-0 Yes [id number] 81mg Take 1 U nivers mg chewable 5-09 tablet by ity of tablet 00:00: mouth [place] 00 daily with Medical breakfast. Branch furosemide 2020-0 Yes [id number] 20mg Take 1 U nivers 20 mg 5-09 tablet by ity of tablet 00:00: mouth [place] 00 daily. Medical Branch aspirin 81 2020-0 2021- No [id number] 81mg Take 1 Univers mg chewable 5-09 12-18 tablet by it y of tablet 00:00: 00:00 mouth [place] 00 :00 daily with Medical breakfast. Branch furosemide 2020-0 2021- No [id number] 20mg Take 1 Univers 20 mg 5-09 12-18 tablet by ity of tablet 00:00: 00:00 mouth [place] 00 :00 daily. Medical Branch isosorbide 2020-0 2020- No [id number] 90mg Take 3 Univers mononitrate 5-09 05-08 tablets by i ty of 30 mg 24 hr 00:00: 00:00 mouth [place] tablet 00 :00 daily. Medical Branch isosorbide 2020-0 2020- No [id number] 90mg Take 3 Univers mononitrate 5-09 05-08 tablets by i ty of 30 mg 24 hr 00:00: 00:00 mouth [place] tablet 00 :00 daily. Medical Branch maalox/lido 2020-0 2020- No 5mL 5 mL, Univ ers sydni 2 5-08 05-08 Oral, ity of %viscous 20:45: 20:56 ONCE, 1 [place] 1:1 00 :00 dose, Fri Medical suspension 03/23/20 at [facility] (COMPOUNDED 1545, ) Routine maalox/lido 2020-0 2020- No 5mL 5 mL, Univ [facility] sydni 2 03-23 Oral, ity of %viscous 20:45: 20:56 ONCE, 1 1:1 00 :00 dose, Fri Medical suspension 03/23/20 at [facility] (COMPOUNDED 1545, ) Routine acetaminoph 2020-0 [...] :00 dose, Fri Medical (DEFINITY) 03/23/20 at [facility] injection 2 1030, mL Routine perflutren [...] 2020-0 Yes 81mg 81 mg, Univers chewable -08 Oral, QAM ity of tablet 81 13:00: [...] 5-08 IV Push, ity of mg 07:59: Q4HPN, [place] 14 Starting Medical 03/23/20 [place] at 0259, Until Discontinu ed, Routine, Chest pain magnesium 2020-0 2020- No 2g 2 g, IV Univ ers sulfate in 03-23 Piggyback, it y of water 2 07:45: 07:49 ONCE, 1 [place] gram/50 mL 00 :00 dose, Fri Medi birdie (4 %) 03/23/20 at [place] infusion 2 0245, g Routine KCL 2020-0 [...] 00 :00 dose, Fri Medical 03/23/20 at [place] 0245, Routine heparin 2020-0 Yes 12U/kg/ 12 [...] Cholecalcif 2019-0 2020- No Take by U darylers ann, 03-23 mouth. ity of Vitamin D3, [...] ORAL) Cholecalcif 2019-0 2020- No Take by Aboila benedictol, 03-23 mouth. ity of Vitamin D3, 04:01: 00:00 [place] 2,000 unit 03 :00 Medical capsule Branch [...] Medical tablet 0.4 doses, Branch mg Starting [facility] 03/22/20 at 2138, Until Discontinu ed, ADAMA, Chest pain nitroglycer 2020-0 Yes .4mg 0.4 mg, Uni vers in 03-23 Sublingual ity of (NITROSTAT) 02:38: , Q5MIN [place] as sublingual 00 PRN, 3 Medical tablet 0.4 doses, Branch mg Starting [facility] 03/22/20 at 2138, Until Discontinu ed, ADAMA, Chest pain aspirin 2020-0 2020- No 324mg 324 mg, Unive rs chewable 03-23 05-08 Oral, ity of tablet 324 02:37: 02:51 ONCE, 1 [place] mg 00 :00 dose, [facility] 03/22/20 at [place] 2145, ADAMA aspirin 2020-0 2020- No 324mg 324 mg, Unive rs chewable 03-23 05-08 Oral, ity of tablet 324 02:37: 02:51 ONCE, 1 [place] mg 00 :00 dose, [facility] 03/22/20 at [place] 2145, ADAMA isosorbide 2020-0 Yes [id number] 90mg Take 1.5 Univers mononitrate 5-08 tablets by it y of 60 mg 24 hr 00:00: mouth [place] tablet 00 daily. [facility] isosorbide 2020-0 Yes [id number] 90mg Take 1.5 Univers mononitrate 5-08 tablets by it y of 60 mg 24 hr 00:00: mouth [place] tablet 00 daily. [facility] isosorbide 2020-0 Yes [id number] 90mg Take 1.5 Univers mononitrate 5-08 tablets by it y of 60 mg 24 hr 00:00: mouth [place] tablet 00 daily. [facility] isosorbide 2020-0 Yes [id number] 90mg Take 1.5 Univers mononitrate 5-08 tablets by it y of 60 mg 24 hr 00:00: mouth [place] tablet 00 daily. [facility] isosorbide 2020-0 Yes [id number] 90mg Take 1.5 Univers mononitrate 5-08 tablets by it y of 60 mg 24 hr 00:00: mouth [place] tablet 00 daily. Medical Branch isosorbide 2020-0 Yes [id number] 90mg Take 1.5 Univers mononitrate 5-08 tablets by it y of 60 mg 24 hr 00:00: mouth [place] tablet 00 daily. Medical Branch isosorbide 2020-0 Yes [id number] 90mg Take 1.5 Univers mononitrate 5-08 tablets by it y of 60 mg 24 hr 00:00: mouth [place] tablet 00 daily. Medical Branch isosorbide 2020-0 Yes [id number] 90mg Take 1.5 Univers mononitrate 5-08 tablets by it y of 60 mg 24 hr 00:00: mouth [place] tablet 00 daily. Medical Branch isosorbide 2020-0 Yes [id number] 90mg Take 1.5 Univers mononitrate 5-08 tablets by it y of 60 mg 24 hr 00:00: mouth [place] tablet 00 daily. Medical Branch isosorbide 2020-0 2021- No [id number] 90mg Take 1.5 Univers mononitrate 5-08 12-18 tablets by i ty of 60 mg 24 hr 00:00: 00:00 mouth [place] tablet 00 :00 daily. Medical Branch acetaminoph 2020-0 2020- No [id number] 975mg Take 3 Univers en 325 mg 5-08 05-19 tablets by ity of tablet 00:00: 04:59 mouth [place] 00 :00 every 8 Medical (eight) Branch hours for 10 days. acetaminoph 2020-0 2020- No [id number] 975mg Take 3 Univers en 325 mg 5-08 05-19 tablets by ity of tablet 00:00: 04:59 mouth [place] 00 :00 every 8 Medical (eight) Branch hours for 10 days. acetaminoph 2020-0 2020- No [id number] 975mg Take 3 Univers en 325 mg 5-08 05-19 tablets by ity of tablet 00:00: 04:59 mouth [place] 00 :00 every 8 Medical (eight) Branch hours for 10 days. acetaminoph 2020-0 2020- No [id number] 975mg Take 3 Univers en 325 mg 5-08 05-19 tablets by ity of tablet 00:00: 04:59 mouth [place] 00 :00 every 8 Medical (eight) Branch hours for 10 days. acetaminoph 2020-0 2020- No [id number] 975mg Take 3 Univers en 325 mg - 05-19 tablets by ity of tablet 00:00: 04:59 mouth [place] 00 :00 every 8 Medical (eight) Branch hours for 10 days. lidocaine 5 2019- No [id number] 1{patch Apply 1 Univers % (700 5-08 05-09 } Patch to ity of mg/patch) 00:00: 04:59 area(s) [place] patch 00 :00 once now Medical for 1 Branch dose. lidocaine 5 2019- No [id number] 1{patch Apply 1 Univers % (700 5-08 05-09 } Patch to ity of mg/patch) 00:00: 04:59 area(s) [place] patch 00 :00 once now Medical for 1 Branch dose. lidocaine 5 2019- No [id number] 1{patch Apply 1 Univers % (700 5-08 05-08 } Patch to ity of mg/patch) 00:00: 00:00 area(s) [place] patch 00 :00 once now Medical for 1 Branch dose. lidocaine 5 2019- No [id number] 1{patch Apply 1 Univers % (700 5-08 05-08 } Patch to ity of mg/patch) 00:00: 00:00 area(s) [place] patch 00 :00 once now Medical for 1 Branch dose. glipiZIDE 2020-0 Yes 5mg 5 mg, Univers (GLUCOTROL) 4-23 Oral, ity of tablet 5 mg 14:00: DAILY, [place] 00 First dose Medical on [facility] Branch 03/08/20 at 0900, Until Discontinu ed, Routine spironolact 2019-2019- No [id number] 12.5mg Take 0.5 Univers one 25 mg 4-23 05-24 tablets by ity of tablet 00:00: 04:59 mouth [place] 00 :00 daily for Medical 30 days. Branch spironolact 2019- 2020- No [id number] 12.5mg Take 0.5 Univers one 25 mg 4-23 05-24 tablets by ity of tablet 00:00: 04:59 mouth [place] 00 :00 daily for Medical 30 days. Branch spironolact 2019-2019- No [id number] 12.5mg Take 0.5 Univers one 25 mg 4-23 05-24 tablets by ity of tablet 00:00: 04:59 mouth [place] 00 :00 daily for Medical 30 days. Branch spironolact 2020-0 2020- No [id number] 12.5mg Take 0.5 [facility] one 25 mg 4-23 05-07 tablets by ity of tablet 00:00: 00:00 mouth [place] 00 :00 daily for Medical 30 days. Branch spironolact 2019-0 2020- No [id number] 12.5mg Take 0.5 [facility] one 25 mg 4-23 05-07 tablets by ity of tablet 00:00: 00:00 mouth [place] 00 :00 daily for Medical 30 days. Branch thiamine 2020-0 Yes 100mg Take 100 [...] 2020-0 Yes Take by Un mel ann, 4- [...] 4-22 mouth. ity of 23:46: [place] [address] Medical Branch thiamine 2020-0 Yes 100mg Take [...] ity of complex and 23:46: [facility] (B 10 Medical COMPLEX-VIT Branch RAZA C-FOLIC ACID ORAL) Cholecalcif 2020-0 Yes Take by Un mel ann, 4-22 mouth. ity of Vitamin D3, 23:46: [place] 2,000 unit 10 Medical capsule Branch MULTIVITAMI 2020-0 Yes Take by Un mel N ORAL 4-22 mouth. ity of 23:46: [place] 10 Medical Branch metoprolol 2020-0 2020- No 12.5mg Take 12.5 [...] mouth ity of tablet 20:15: 00:00 at [place] 29 :00 bedtime. Medical Branch temazepam 2020-0 Yes 15mg 15 mg, Univer s (RESTORIL) 4-22 Oral, ity of capsule 15 01:55: QHSPRN, [place] mg 38 Starting Medical Tue Branch 03/06/20 at 5, Until Discontinu ed, Routine, Insomnia Insulin 2019-0 Yes [id number] 10U inject 10 [facility] Glargine 4-22 Units ity of 100 unit/mL 00:00: under the [place] (3 mL) 00 skin at Medical injection bedtime. Branch temazepam 2019-0 Yes [id number] 15mg Take 1 Un mel 15 mg 4-22 capsule by ity of capsule 00:00: mouth at [place] 00 bedtime as Medical needed for Branch Insomnia. furosemide 2020-0 Yes [id number] 40mg Take 1 [facility] 40 mg 4-22 tablet by ity of tablet 00:00: mouth [place] 00 every Medical morning Branch and evening. Magnesium 2020-0 Yes [id number] 400mg Take 400 [facility] Oxide 420 4-22 mg by ity of mg Tab 00:00: mouth [place] 00 daily. Medical Branch potassium 2020-0 Yes [id number] 20meq Take 20 [facility] chloride 20 4-22 mEq by ity of mEq packet 00:00: mouth [place] 00 daily. Medical Take with Branch lasix in the morning isosorbide 2020-0 Yes [id number] 15mg Take 0.5 [facility] mononitrate 4-22 tablets by it y of 30 mg 24 hr 00:00: mouth [place] tablet 00 daily. Medical Hold if Branch systolic blood pressure less than 120 Insulin 2020-0 Yes [id number] 10U inject 10 [facility] Glargine 4-22 Units ity of 100 unit/mL 00:00: under the [place] (3 mL) 00 skin at Medical injection bedtime. Branch temazepam 2020-0 Yes [id number] 15mg Take 1 Un mel 15 mg 4-22 capsule by ity of capsule 00:00: mouth at [place] 00 bedtime as Medical needed for Branch Insomnia. furosemide 2020-0 Yes [id number] 40mg Take 1 [facility] 40 mg 4-22 tablet by ity of tablet 00:00: mouth [place] 00 every Medical morning Branch and evening. Magnesium 2020-0 Yes [id number] 400mg Take 400 [facility] Oxide 420 4-22 mg by ity of mg Tab 00:00: mouth [place] 00 daily. Medical Branch potassium 2020-0 Yes [id number] 20meq Take 20 [facility] chloride 20 4-22 mEq by ity of mEq packet 00:00: mouth [place] 00 daily. Medical Take with Branch lasix in the morning isosorbide 2020-0 Yes [id number] 15mg Take 0.5 [facility] mononitrate 4-22 tablets by it y of 30 mg 24 hr 00:00: mouth [place] tablet 00 daily. Medical Hold if Branch systolic blood pressure less than 120 Insulin 2020-0 Yes [id number] 10U inject 10 [facility] Glargine 4-22 Units ity of 100 unit/mL 00:00: under the [place] (3 mL) 00 skin at Medical injection bedtime. Branch temazepam 2020-0 Yes [id number] 15mg Take 1 Un mel 15 mg 4-22 capsule by ity of capsule 00:00: mouth at [place] 00 bedtime as Medical needed for Branch Insomnia. furosemide 2020-0 Yes [id number] 40mg Take 1 [facility] 40 mg 4-22 tablet by ity of tablet 00:00: mouth [place] 00 every Medical morning Branch and evening. Magnesium 2020-0 Yes [id number] 400mg Take 400 [facility] Oxide 420 4-22 mg by ity of mg Tab 00:00: mouth [place] 00 daily. Medical Branch potassium 2020-0 Yes [id number] 20meq Take 20 [facility] chloride 20 4-22 mEq by ity of mEq packet 00:00: mouth [place] 00 daily. Medical Take with Branch lasix in the morning isosorbide 2020-0 Yes [id number] 15mg Take 0.5 [facility] mononitrate 4-22 tablets by it y of 30 mg 24 hr 00:00: mouth [place] tablet 00 daily. Medical Hold if Branch systolic blood pressure less than 120 Insulin 2020-0 Yes [id number] 10U inject 10 [facility] Glargine 4-22 Units ity of 100 unit/mL 00:00: under the [place] (3 mL) 00 skin at Medical injection bedtime. Branch Magnesium 2020-0 Yes [id number] 400mg Take 400 [facility] Oxide 420 4-22 mg by ity of mg Tab 00:00: mouth [place] 00 daily. Medical Branch vitamin 2019-0 2020- No [id number] 1000ug Take 1 Univers B-12 1,000 4-22 07-22 tablet by ity of mcg tablet 00:00: 04:59 mouth [place] 00 :00 daily for Medical 90 days. Branch vitamin 2019-0 2020- No [id number] 1000ug Take 1 Univers B-12 1,000 4-22 07-22 tablet by ity of mcg tablet 00:00: 04:59 mouth [place] 00 :00 daily for Medical 90 days. Branch vitamin 2019-0 2020- No [id number] 1000ug Take 1 Univers B-12 1,000 4-22 07-22 tablet by ity of mcg tablet 00:00: 04:59 mouth [place] 00 :00 daily for Medical 90 days. Branch vitamin 2019-0 2020- No [id number] 1000ug Take 1 Univers B-12 1,000 4-22 07-22 tablet by ity of mcg tablet 00:00: 04:59 mouth [place] 00 :00 daily for Medical 90 days. Branch glipiZIDE 5 2019- 2020- No [id number] 2.5mg Take 0.5 [facility] mg tablet 03-07-23 tablets by ity of 00:00: 04:59 mouth 2 [place] 00 :00 (two) Medical times Branch daily before breakfast and dinner for 30 days. metoprolol 2019-0 2020- No [id number] 25mg Take 1 [facility] succinate - 05-23 tablet by ity of XL 25 mg 24 00:00: 04:59 mouth 2 [place] hr tablet 00 :00 (two) Medical times Branch daily for 30 days. OLANZapine 2019-0 2020- No [id number] 2.5mg Take 1 [facility] 2.5 mg - 05-23 tablet by ity of tablet 00:00: 04:59 mouth at [place] 00 :00 bedtime Medical for 30 Branch days. ranolazine 2019-0 2020- No [id number] 1000mg Take 2 [facility] 500 mg 12 - 05-23 tablets by ity of hr tablet 00:00: 04:59 mouth [place] 00 :00 every 12 Medical (twelve) Branch hours for 30 days. aspirin 81 2019- 2020- No [id number] 81mg Take 1 [facility] mg chewable 4-22 05-23 tablet by it y of tablet 00:00: 04:59 mouth [place] 00 :00 daily with Medical breakfast Branch for 30 days. atorvastati 2019- 2020- No [id number] 40mg Take 1 [facility] n 40 mg 4-22 05-23 tablet by ity of tablet 00:00: 04:59 mouth at [place] 00 :00 bedtime Medical for 30 Branch days. glipiZIDE 5 2019- 2020- No [id number] 2.5mg Take 0.5 [facility] mg tablet 4- 05-23 tablets by ity of 00:00: 04:59 mouth 2 [place] 00 :00 (two) Medical times Branch daily before breakfast and dinner for 30 days. metoprolol 2019- 2020- No [id number] 25mg Take 1 [facility] succinate 4-22 05-23 tablet by ity of XL 25 mg 24 00:00: 04:59 mouth 2 [place] hr tablet 00 :00 (two) Medical times Branch daily for 30 days. OLANZapine 2019- 2020- No [id number] 2.5mg Take 1 [facility] 2.5 mg 4-22 05-23 tablet by ity of tablet 00:00: 04:59 mouth at [place] 00 :00 bedtime Medical for 30 Branch days. ranolazine 2019-0 2020- No [id number] 1000mg Take 2 [facility] 500 mg 12 4-22 05-23 tablets by ity of hr tablet 00:00: 04:59 mouth [place] 00 :00 every 12 Medical (twelve) Branch hours for 30 days. aspirin 81 2019- 2020- No [id number] 81mg Take 1 [facility] mg chewable 4-22 05-23 tablet by it y of tablet 00:00: 04:59 mouth [place] 00 :00 daily with Medical breakfast Branch for 30 days. atorvastati 2019-0 2020- No [id number] 40mg Take 1 [facility] n 40 mg 4-22 05-23 tablet by ity of tablet 00:00: 04:59 mouth at [place] 00 :00 bedtime Medical for 30 Branch days. glipiZIDE 5 2019- 2020- No [id number] 2.5mg Take 0.5 [facility] mg tablet 4-22 05-23 tablets by ity of 00:00: 04:59 mouth 2 [place] 00 :00 (two) Medical times Branch daily before breakfast and dinner for 30 days. metoprolol 2020-0 2020- No [id number] 25mg Take 1 [facility] succinate 4-22 05-23 tablet by ity of XL 25 mg 24 00:00: 04:59 mouth 2 [place] hr tablet 00 :00 (two) Medical times Branch daily for 30 days. OLANZapine 2019- 2020- No [id number] 2.5mg Take 1 [facility] 2.5 mg 4-22 05-23 tablet by ity of tablet 00:00: 04:59 mouth at [place] 00 :00 bedtime Medical for 30 Branch days. ranolazine 2019- 2020- No [id number] 1000mg Take 2 [facility] 500 mg 12 4-22 05-23 tablets by ity of hr tablet 00:00: 04:59 mouth [place] 00 :00 every 12 Medical (twelve) Branch hours for 30 days. aspirin 81 2019- 2020- No [id number] 81mg Take 1 [facility] mg chewable 4-22 05-23 tablet by it y of tablet 00:00: 04:59 mouth [place] 00 :00 daily with Medical breakfast Branch for 30 days. atorvastati 2019- 2020- No [id number] 40mg Take 1 Univers n 40 mg 4-22 05-23 tablet by ity of tablet 00:00: 04:59 mouth at [place] 00 :00 bedtime Medical for 30 Branch days. glipiZIDE 5 2019- 2020- No [id number] 2.5mg Take 0.5 [facility] mg tablet - 05-23 tablets by ity of 00:00: 04:59 mouth 2 [place] 00 :00 (two) Medical times Branch daily before breakfast and dinner for 30 days. metoprolol 2019- 2020- No [id number] 25mg Take 1 [facility] succinate 4-22 05-23 tablet by ity of XL 25 mg 24 00:00: 04:59 mouth 2 [place] hr tablet 00 :00 (two) Medical times Branch daily for 30 days. ranolazine 2019-0 2020- No [id number] 1000mg Take 2 [facility] 500 mg 12 4-22 05-23 tablets by ity of hr tablet 00:00: 04:59 mouth [place] 00 :00 every 12 Medical (twelve) Branch hours for 30 days. atorvastati 2019-0 2020- No [id number] 40mg Take 1 [facility] n 40 mg 03-07- tablet by ity of tablet 00:00: 04:59 mouth at [place] 00 :00 bedtime Medical for 30 Branch days. furosemide 2019- 2020- No [id number] 40mg Take 1 [facility] 40 mg 03-07-08 tablet by ity of tablet 00:00: 00:00 mouth [place] 00 :00 every Medical morning Branch and evening. aspirin 81 2020- No [id number] 81mg Take 1 [facility] mg chewable 03-07-08 tablet by it y of tablet 00:00: 00:00 mouth [place] 00 :00 daily with Medical breakfast Branch for 30 days. isosorbide 2019-2019- No [id number] 15mg Take 0.5 [facility] mononitrate 03-07-08 tablets by i ty of 30 mg 24 hr 00:00: 00:00 mouth [place] tablet 00 :00 daily. Medical Hold if Branch systolic blood pressure less than 120 Insulin 2019-2019- No [id number] 10U inject 10 [facility] Glargine 03-07-08 Units ity of 100 unit/mL 00:00: 00:00 under the [place] (3 mL) 00 :00 skin at Medical injection bedtime. Branch glipiZIDE 5 2020- No [id number] 2.5mg Take 0.5 [facility] mg tablet 03-07 tablets by ity of 00:00: 00:00 mouth 2 [place] 00 :00 (two) Medical times Branch daily before breakfast and dinner for 30 days. metoprolol 2019- No [id number] 25mg Take 1 [facility] succinate 03-07-08 tablet by ity of XL 25 mg 24 00:00: 00:00 mouth 2 [place] hr tablet 00 :00 (two) Medical times Branch daily for 30 days. ranolazine 2020- No [id number] 1000mg Take 2 [facility] 500 mg 12 03-07-08 tablets by ity of hr tablet 00:00: 00:00 mouth [place] 00 :00 every 12 Medical (twelve) Branch hours for 30 days. furosemide 2019- 2020- No [id number] 40mg Take 1 [facility] 40 mg 03-07-08 tablet by ity of tablet 00:00: 00:00 mouth [place] 00 :00 every Medical morning Branch and evening. aspirin 81 2019- No [id number] 81mg Take 1 [facility] mg chewable 03-07-08 tablet by it y of tablet 00:00: 00:00 mouth [place] 00 :00 daily with Medical breakfast Branch for 30 days. atorvastati 2019- No [id number] 40mg Take 1 [facility] n 40 mg 03-07-08 tablet by ity of tablet 00:00: 00:00 mouth at [place] 00 :00 bedtime Medical for 30 Branch days. Magnesium 2019- No [id number] 400mg Take 400 [facility] Oxide 420 03-07 05-08 mg by ity of mg Tab 00:00: 00:00 mouth [place] 00 :00 daily. Medical Branch vitamin 2019-2019- No [id number] 1000ug Take 1 [facility] B-12 1,000 03-07-08 tablet by ity of mcg tablet 00:00: 00:00 mouth [place] 00 :00 daily for Medical 90 days. Branch isosorbide 2019- No [id number] 15mg Take 0.5 [facility] mononitrate 03-07-08 tablets by i ty of 30 mg 24 hr 00:00: 00:00 mouth [place] tablet 00 :00 daily. Medical Hold if Branch systolic blood pressure less than 120 OLANZapine 2019- No [id number] 2.5mg Take 1 [facility] 2.5 mg 03-07-07 tablet by ity of tablet 00:00: 00:00 mouth at [place] 00 :00 bedtime Medical for 30 Branch days. temazepam 2019- No [id number] 15mg Take 1 U nivers 15 mg 03-07-07 capsule by ity of capsule 00:00: 00:00 mouth at [place] 00 :00 bedtime as Medical needed for Branch Insomnia. potassium 2019- No [id number] 20meq Take 20 Univers chloride 20 03-07 05-07 mEq by ity o f mEq packet 00:00: 00:00 mouth [place] 00 :00 daily. Medical Take with Branch lasix in the morning OLANZapine 2019- No [id number] 2.5mg Take 1 Univers 2.5 mg - 05-07 tablet by ity of tablet 00:00: 00:00 mouth at [place] 00 :00 bedtime Medical for 30 Branch days. temazepam 2019- No [id number] 15mg Take 1 U nivers 15 mg 03-07-07 capsule by ity of capsule 00:00: 00:00 mouth at [place] 00 :00 bedtime as Medical needed for [place] Insomnia. potassium 2019-0 2020- No [id number] 20meq Take 20 Univers chloride 20 03-07-07 mEq by ity o f mEq packet 00:00: 00:00 mouth [place] 00 :00 daily. Medical Take with [place] lasix in the morning isosorbide 2019-0 2020- No 60mg 60 mg, Univ ers mononitrate 03-06- Oral, ity of (IMDUR) 24 14:00: 13:43 DAILY, [place] hr tablet 00 :56 First dose Medi birdie 60 mg on [place] 03/06/20 at 0900, Until Discontinu ed, Routine OLANZapine 2020-0 Yes 2.5mg 2.5 mg, Uni vers (ZyPREXA) - Oral, QHS, ity of tablet 2.5 02:00: First dose [place] mg 00 on [facility] 03/05/20 at Branch 2100, Until Discontinu ed, Routine insulin 2020-0 Yes 10U 10 Units, [facility] glarg[facility] - Subcutaneo ity o f (LANTUS 02:00: us, QHS, [place] U-100) 00 First dose Medical injection on [facility] 10 Units 03/05/20 at 2100, Until Discontinu ed, Routine donepezil 2020-0 Yes 5mg 5 mg, Univers (ARICEPT) - Oral, QHS, ity of tablet 5 mg [...] [place] hr tablet 00 :00 dose, [facility] Medic al 30 mg 03/05/20 at Branch 1030, Routine spironolact 2020-0 Yes 12.5mg 12.5 mg, Univers one 4-20 Oral, ity of (ALDACTONE) 14:00: DAILY, [place] tablet 12.5 00 First dose Me dical mg on [facility] 03/05/20 at 0900, Until Discontinu ed, Routine memantine 2020-0 Yes 10mg 10 mg, Univer s (NAMENDA) 4-20 Oral, ity of tablet 10 14:00: DAILY, [place] mg 00 First dose Medical on [facility] 03/05/20 at 0900, Until Discontinu ed, Routine
history faculty member approving Restricted medication : MEGADC lisinopril 2020-0 2020- No 5mg 5 mg, Unive rs (PRINIVIL,Z -05 03-21 Oral, ity of ESTRIL) 14:00: 13:44 DAILY, [place] tablet 5 mg 00 :01 First dose Me dical on [facility] 03/05/20 at 0900, Until Discontinu ed, Routine isosorbide 2020-0 2020- No 30mg 30 mg, Univ ers mononitrate -05 03-20 Oral, ity of (IMDUR) 24 14:00: 14:20 DAILY, [place] hr tablet 00 :04 First dose Medi birdie 30 mg on [facility] 03/05/20 at 0900, Until Discontinu ed, Routine ranolazine 2020-0 Yes 500mg 500 mg, Uni vers (RANEXA) 12 4-20 Oral, ity of hr tablet 13:00: Q12H, [place] 500 mg 00 First dose Medical on [facility] 03/05/20 at 0800, Until Discontinu ed, Routine metoprolol 2020-0 Yes 25mg 25 mg, Unive rs succinate 4-20 Oral, BID, ity of XL (TOPROL 13:00: First dose [place] XL) tablet 00 on [facility] Medical 25 mg 03/05/20 at Branch 0800, Until Discontinu ed, Routine magnesium 2020-0 Yes 400mg 400 mg, Univ ers oxide 4-20 Oral, BID, ity of (MAG-OX 13:00: First dose [place] 400) tablet 00 on [facility] Medica l 400 mg 03/05/20 at Branch 0800, Until Discontinu ed, Routine aspirin 2020-0 Yes 81mg 81 mg, Univers chewable 4-20 Oral, QAM ity of tablet 81 13:00: WITH [place] mg 00 BREAKFAST, Medical First dose Branch on [facility] 03/05/20 at 0800, Until Discontinu ed, Routine Sliding 2020-0 Yes Subcutaneo Univ ers Scale 4-20 us, AC+HS, ity of Insulin-Reg 12:30: First dose [place] ular + Fsbg 00 on [facility] Medica l Testing 03/05/20 at Branch 0730, Until Discontinu ed, Routine glipiZIDE 2020-0 2020- No 5mg 5 mg, Univer s (GLUCOTROL) 4-20 04-22 Oral, ity of tablet 5 mg 12:30: 19:41 BIDAC, [place] 00 :44 First dose Medical on [facility] Branch 03/05/20 at 0730, Until Discontinu ed, Routine glucagon 2020-0 Yes 1mg 1 mg, Univers (GLUCAGEN 4-20 Intramuscu ity of DIAGNOSTIC 03:02: [place], PRN, [place] KIT) 42 Starting Medical injection 1 [place] Branch mg 03/04/20 at 2202, Until Discontinu [...] [place] mg 00 First dose Medical on [place] Branch 03/04/20 at 2200, Until Discontinu ed, [...] Q8H, Medi birdie First dose Branch on [place] 03/04/20 at 2200, Until Discontinu ed, Routine ondansetron 2019-0 Yes 4mg 4 mg, Slow Univers (ZOFRAN 4-20 IV Push, ity of (PF)) 02:34: Q6HPRN, [place] injection 4 40 Starting Medi birdie mg [facility] 03/04/20 at 2134, Until Discontinu ed, Routine, Nausea and Vomiting (N/V) traMADol 2019-0 2020- No 50mg 50 mg, Univer s (ULTRAM) 4-20 04-22 Oral, ity of tablet 50 02:34: 02:33 Q8HPRN, [place] mg 23 :23 Starting Medical [facility] 03/04/20 at 2134, Until 03/06/20 at 2133, Routine, Pain (scale 4-6) acetaminoph 2019-0 Yes 650mg 650 mg, Un mel en 4-20 Oral, ity of (TYLENOL) 02:34: Q6HPRN, [place] tablet 650 20 Starting Medic al mg [facility] 03/04/20 at 2134, Until Discontinu ed, Routine, Pain (scale 1-3) lisinopril 2020-0 Yes [id number] 5mg Take 1 Univers 5 mg tablet 4-18 tablet by ity of 00:00: mouth [place] 00 daily. Medical Branch isosorbide 2020-0 Yes [id number] 30mg Take 1 [facility] mononitrate 4-18 tablet by ity of 30 mg 24 hr 00:00: mouth [place] tablet 00 daily. Medical Branch lisinopril 2020-0 Yes [id number] 5mg Take 1 [facility] 5 mg tablet 4-18 tablet by ity of 00:00: mouth [place] 00 daily. [facility] Branch isosorbide 2020-0 Yes [id number] 30mg Take 1 [facility] mononitrate 4-18 tablet by ity of 30 mg 24 hr 00:00: mouth [place] tablet 00 daily. [facility] Branch lisinopril 2020-0 2020- No [id number] 5mg Take 1 Univers 5 mg tablet 4-18 04-22 tablet by it y of 00:00: 00:00 mouth [place] 00 :00 daily. [facility] Branch isosorbide 2020-0 2020- No [id number] 30mg Take 1 [facility] mononitrate 4-18 04-22 [...] 2,000 unit 27 Medical capsule Branch metoprolol 2019-0 Yes 12.5mg Take 12.5 Univers tartrate 4-17 mg by ity of 12.5 mg 17:34: mouth 2 [place] 27 (two) Medical times Branch daily. MULTIVITAMI 2020-0 Yes Take by Un mel N ORAL 4-17 mouth. ity of 17:34: [place] [address] Medical Branch thiamine 2020-0 Yes 100mg Take 100 Univ ers (VITAMIN 4-17 mg by ity of B-1) 100 mg 17:34: mouth [place] tablet 27 daily. Medical Branch aspirin 81 2019-0 Yes 81mg Take 81 mg U nivers mg chewable 4-17 by mouth ity of tablet 17:34: daily. [place] [address] Medical Branch atorvastati 2020-0 Yes 40mg Take [...] N ORAL 4-17 mouth. ity of 17:34: [place] [address] Medical Branch thiamine 2020-0 Yes 100mg Take 100 Univ ers (VITAMIN 4-17 mg by ity of B-1) 100 mg 17:34: mouth [place] tablet 27 daily. Medical Branch aspirin 81 2020-0 Yes 81mg Take 81 mg U nivers mg chewable 4-17 by mouth ity of tablet 17:34: daily. [place] [address] Medical Branch atorvastati 2020-0 Yes 40mg Take 40 mg Univers n 40 mg 4-17 by mouth ity of tablet 17:34: at [place] [address] bedtime. Medical Branch NaCl 0.9% 2020-0 Yes [...] Until Discontinu ed, Routine furosemide 2020-0 Yes [id number] 40mg Take 1 [facility] 40 mg 4-17 tablet by ity of tablet 00:00: mouth [place] 00 every Medical morning Branch and evening. potassium 2020-0 Yes [id number] 20meq Take 20 Univers chloride 20 4-17 mEq by ity of mEq packet 00:00: mouth [place] 00 daily. Medical Branch vitamin 2020-0 Yes [id number] 1000ug Take 1 U nivers B-12 1,000 4-17 tablet by ity of mcg tablet 00:00: mouth [place] 00 daily. Medical Branch furosemide 2020-0 Yes [id number] 40mg Take 1 [facility] 40 mg 4-17 tablet by ity of tablet 00:00: mouth [place] 00 every Medical morning Branch and evening. potassium 2020-0 Yes [id number] 20meq Take 20 [facility] chloride 20 4-17 mEq by ity of mEq packet 00:00: mouth [place] 00 daily. Medical Branch vitamin 2020-0 Yes [id number] 1000ug Take 1 U nivers B-12 1,000 4-17 tablet by ity of mcg tablet 00:00: mouth [place] 00 daily. Medical Branch furosemide 2020-0 2020- No [id number] 40mg Take 1 [facility] 40 mg 4-17 04-22 tablet by ity of tablet 00:00: 00:00 mouth [place] 00 :00 every Medical morning Branch and evening. potassium 2020-0 2020- No [id number] 20meq Take 20 [facility] chloride 20 4-17 04-22 mEq by ity o f mEq packet 00:00: 00:00 mouth [place] 00 :00 daily. Medical Branch vitamin 2020-0 2020- No [id number] 1000ug Take 1 Univers B-12 1,000 4-17 04-22 tablet by ity of mcg tablet 00:00: 00:00 mouth [place] 00 :00 daily. [facility] Branch cyanocobala 2020-0 Yes 1000ug 1,000 mcg, Univers min 4-16 Subcutaneo ity of (VITAMIN 20:45: us, Q24H, [place] B12) 00 First dose Medical injection on [facility] Branch 1,000 mcg 03/01/20 at 1545, Until Discontinu ed, Routine isosorbide 2020-0 Yes 30mg 30 mg, Unive rs mononitrate 4-16 Oral, ity of (IMDUR) 24 14:00: DAILY, [place] hr tablet 00 First dose Medi birdie 30 mg on [facility] Branch 03/01/20 at 0900, Until Discontinu ed, Routine memantine 2020-0 Yes 10mg 10 mg, Univer s (NAMENDA) 4-16 Oral, ity of tablet 10 14:00: DAILY, [place] mg 00 First dose Medical on [facility] 03/01/20 at 0900, Until Discontinu ed, Routine
history faculty member approving Restricted medication : MEGADC lisinopril 2020-0 Yes 5mg 5 mg, Univer s (PRINIVIL,Z 16 Oral, ity of ESTRIL) 14:00: DAILY, [place] tablet 5 mg 00 First dose Me dical on [facility] 03/01/20 at 0900, Until Discontinu ed, Routine enoxaparin 2020-0 Yes 30mg 30 mg, Unive rs (LOVENOX) 16 Subcutaneo ity of injection 14:00: [place], DAILY, [place] 30 mg 00 First dose Medical on [facility] 03/01/20 at 0900, Until Discontinu ed, Routine KCL 2020-0 2020- No 20meq 20 mEq, Univers (KLOR-CON 03-01 Oral, ity of M20) tablet 14:00: 13:26 DAILY, [place] 20 mEq 00 :35 First dose Medical on [facility] 03/01/20 at 0900, Until Discontinu ed, Routine KCL 2020-0 Yes 40meq 40 mEq, Univers (KLOR-CON -16 Oral, BID, ity of M20) tablet 13:30: First dose [place] 40 mEq 00 on [facility] 03/01/20 at Branch 0830, Until Discontinu ed, Routine magnesium 2020-0 2020- No 2g 2 g, IV Univ ers sulfate in 03-01 Infusion, ity of water 2 03:30: 03:30 ONCE, 1 [place] gram/50 mL 00 :00 dose, Thu [facility] birdie (4 %) 2 g 02/29/20 at [facility] piggyback 2230 metoprolol 2020-0 2020- No 5mg 5 mg, Slow Univers (LOPRESSOR) 03-01 IV Push, ity of injection 5 03:30: 03:37 ONCE, 1 [place] mg 00 :00 dose, [facility] Medical 02/29/20 at Branch 2230, ADAMA glipiZIDE 2020-0 Yes 5mg 5 mg, Univers (GLUCOTROL) 16 Oral, ity of tablet 5 mg 02:45: BIDAC, [place] 00 First dose Medical on [facility] 02/29/20 at 2145, Until Discontinu ed, Routine [...] [place] 40 mEq 00 :00 dose, [facility] Medical 02/29/20 at Branch 2000, Routine acetaminoph 2019-0 Yes 650mg 650 mg, Un mel en 15 Oral, ity of (TYLENOL) 23:57: Q6HPRN, [place] tablet 650 25 Starting Medic al mg [facility] Branch 02/29/20 at 1857, Until Discontinu ed, Routine, Pain (scale 1-3) NaCl 0.9% 2019- No 500mL at 999 Univ ers (NS) bolus 02-28-15 mL/hr, 500 it y of infusion 23:30: 23:37 mL, IV [place] 500 mL 00 :00 Infusion, Medical ONCE, 1 Branch dose, Thu02/29/20 at 1830, ADAMA acetaminoph 2020- No 650mg 650 mg, U nivers en 02-28-15 Oral, ity of (TYLENOL) 23:00: 22:36 ONCE, 1 [place] tablet 650 00 :00 dose, Thu Medi birdie mg 02/29/20 at Branch 1800, ADAMA donepezil 5 2019-0 Yes 5mg Take 5 mg U nivers mg tablet 02-14 by mouth ity of 00:00: daily. [address] donepezil 5 2019-0 2020- No 5mg Take 5 mg Univers mg tablet 02-1408 by mouth ity o f 00:00: 00:00 daily. [place] 00 :00 [facility] Branch nitroglycer 2019-0 2020- No DISSOLVE U [...] by mouth ity of tablet 23:00: at [place] [address] bedtime. Medical Branch NaCl 0.9% 2020-0 Yes [...] ity of Vitamin D3, 23:00: [place] 2,000 unit Medical capsule Branch metoprolol 2020-0 Yes 12.5mg Take 12.5 Univers tartrate 3-03 mg by ity of 12.5 mg 23:00: mouth 2 [place] 52 (two) Medical times Branch daily. MULTIVITAMI 2020-0 Yes Take by Un mel N ORAL 3-03 mouth. ity of 23:00: [place] [address] Medical Branch thiamine 2020-0 Yes 100mg Take 100 Univ ers (VITAMIN 3-03 mg by ity of B-1) 100 mg 23:00: mouth [place] tablet 52 daily. Medical Branch aspirin 81 2020-0 Yes 81mg Take 81 mg U nivers mg chewable 3-03 by mouth ity of tablet 23:00: daily. [place] [address] Medical Branch atorvastati 2020-0 Yes 40mg Take 40 mg Univers n 40 mg 3-03 by mouth ity of tablet 23:00: at [place] [address] bedtime. Medical Branch NaCl 0.9% 2020-0 Yes [...] N ORAL 3-03 mouth. ity of 23:00: [place] 52 Medical Branch thiamine 2020-0 Yes 100mg Take 100 Univ ers (VITAMIN 3-03 mg by ity of B-1) 100 mg 23:00: mouth [place] tablet 52 daily. Medical Branch aspirin 81 2020-0 Yes 81mg Take 81 mg U nivers mg chewable 3-03 by mouth ity of tablet 23:00: daily. [place] [address] Medical Branch atorvastati 2020-0 Yes 40mg Take 40 mg Univers n 40 mg 3-03 by mouth ity of tablet 23:00: at [place] [address] bedtime. Medical Branch NaCl 0.9% 2020-0 Yes [...] ity of Vitamin D3, 23:00: [place] 2,[address] [place] [id number] Medical capsule Branch metoprolol 2020-0 Yes 12.5mg Take 12.5 Univers tartrate 3-03 mg by ity of 12.5 mg 23:00: mouth 2 [place] 52 (two) Medical times Branch daily. MULTIVITAMI 2020-0 Yes Take by Un mel N ORAL 3-03 mouth. ity of 23:00: [place] [address] Medical Branch thiamine 2020-0 Yes 100mg Take 100 Univ ers (VITAMIN 3-03 mg by ity of B-1) 100 mg 23:00: mouth [facility] 52 daily. Medical Branch aspirin 81 2020-0 Yes 81mg Take 81 mg U nivers mg chewable 3-03 by mouth ity of tablet 23:00: daily. [place] [address] Medical Branch atorvastati 2020-0 Yes 40mg Take 40 mg Univers n 40 mg 3-03 by mouth ity of tablet 23:00: at [place] [address] bedtime. Medical Branch NaCl 0.9% 2020-0 Yes [...] dose [place] mg 00 on Thu [facility] 01/16/20 at Branch 2100, Until Discontinu ed, Routine ranolazine 2020-0 2020- No [id number] 500mg Take 1 Univers 500 mg 12 3-03 04-03 tablet by ity of hr tablet 00:00: 04:59 mouth [place] 00 :00 every 12 Medical (twelve) Branch hours for 30 days. ranolazine 2020-0 2020- No [id number] 500mg Take 1 Univers 500 mg 01-16 tablet by ity of hr tablet 00:00: 04:59 mouth [place] 00 :00 every 12 Medical (twelve) Branch hours for 30 days. ranolazine 2020-0 2020- No [id number] 500mg Take 1 Univers 500 mg 01-16 tablet by ity of hr tablet 00:00: 04:59 mouth [place] 00 :00 every 12 Medical (twelve) Branch hours for 30 days. ranolazine 2019-0 2020- No [id number] 500mg Take 1 Univers 500 mg 01-16 tablet by ity of hr tablet 00:00: 04:59 mouth [place] 00 :00 every 12 Medical (twelve) Branch hours for 30 days. ranolazine 2020-0 Yes 500mg 500 mg, Uni vers (RANEXA) 12 01-15 Oral, ity of hr tablet 22:30: Q12H, [place] 500 mg 00 First dose Medical on [facility] 01/16/20 at 1630, Until Discontinu ed, Routine insulin 2020-0 Yes 30U 30 Units, Unive rs glargine 01-15 Subcutaneo ity o f (LANTUS 15:00: [place], DAILY, [place] U-100) 00 First dose Medical injection on [facility] 30 Units 01/16/20 at 0900, Until Discontinu ed furosemide 2020-0 Yes 40mg 40 mg, Unive rs (LASIX) 01-15 Oral, ity of tablet 40 15:00: DAILY, [place] mg 00 First dose Medical on [facility] 01/16/20 at 0900, Until Discontinu ed, Routine aspirin 2020-0 Yes 81mg 81 mg, Univers chewable 01-15 Oral, ity of tablet 81 15:00: DAILY, [place] mg 00 First dose Medical on [facility] 01/16/20 at 0900, Until Discontinu ed, Routine metoprolol 2020-0 Yes 12.5mg 12.5 mg, U nivers tartrate -02 Oral, BID, ity o f (LOPRESSOR) 14:00: First dose [place] tablet 12.5 00 on [facility] Medica l mg 01/16/20 at Branch [...] Push, ity of mg 07:54: 07:53 Q6HPRN, [place] 55 :55 Starting Medical [facility] 01/16/20 Branch at 0154, Until 01/17/20 at 0153, Routine, Pain (scale 7-10) traMADol 2019-0 2020- No 50mg 50 mg, Univer s (ULTRAM) 01-15 03-04 Oral, ity of tablet 50 07:54: 07:53 Q8HPRN, [place] mg 47 :47 Starting Medical [facility] 01/16/20 Branch at 0154, Until 01/18/20 at 0153, Routine, Pain (scale 4-6) acetaminoph 2020-0 Yes 650mg 650 mg, Un mel en 3-02 Oral, ity of (TYLENOL) 07:54: Q6HPRN, [place] tablet 650 44 Starting Medic al mg 01/16/20 Branch at 0154, Until Discontinu ed, Routine, Pain (scale 1-3) insulin 2019-0 2020- No 8U 8 Units, Unive rs regular 01-15 03-02 Slow IV ity of human 06:45: 05:40 Push, [place] (HUMULIN R) 00 :00 ONCE, 1 Medic al injection 8 dose, Mon Bra nch Units 01/16/20 at 0045, STAT heparin 2019-0 Yes 1000U/h 1,000 Univer s 25,000 3-02 Units/hr ity of unit/250 mL 06:00: (10 [place] (Premixed 00 mL/hr), IV Medi birdie Bag) in Infusion, Branch NaCl 0.45 % CONTINUOUS weight , Starting based 01/16/20 dosing [facility] at 0000, protocol Until Discontinu ed heparin 2019-0 2020- No 4000U 4,000 Univers 1000 01-15 03-02 Units, IV ity of unit/mL 05:45: 05:47 Push, [place] injection 00 :00 ONCE, 1 Medical Soln 4,000 dose, [place] [facility] Units 01/15/20 at 2345, ADAMA furosemide 2018-11 Yes [id number] 40mg Take 1 Univers 40 mg 0-26 tablet by ity of tablet 00:00: mouth [place] 00 daily. Medical Branch furosemide 2018-11 Yes [id number] 40mg Take 1 Univers 40 mg 0-26 tablet by ity of tablet 00:00: mouth [place] 00 daily. Medical Branch furosemide 2018-11 Yes [id number] 40mg Take 1 Univers 40 mg 0-26 tablet by ity of tablet 00:00: mouth [place] 00 daily. Medical Branch furosemide 2018-11 Yes [id number] 40mg Take 1 Univers 40 mg 0-26 tablet by ity of tablet 00:00: mouth [place] 00 daily. Medical Branch furosemide 2018-11 2020- No [id number] 40mg Take 1 Univers 40 mg 0-26 04-17 tablet by ity of tablet 00:00: 00:00 mouth [place] 00 :00 daily. Medical Branch magnesium 2019-1 Yes [id number] 400mg Take 400 Univers oxide 420 0-23 mg by ity of mg Tab 00:00: mouth [place] 00 daily. Medical Branch magnesium 2019-1 Yes [id number] 400mg Take 400 Univers oxide 420 0-23 mg by ity of mg Tab 00:00: mouth [place] 00 daily. Medical Branch magnesium 2019-1 Yes [id number] 400mg Take 400 Univers oxide 420 0-23 mg by ity of mg Tab 00:00: mouth [place] 00 daily. Medical Branch magnesium 2019-1 Yes [id number] 400mg Take 400 Univers oxide 420 0-23 mg by ity of mg Tab 00:00: mouth [place] 00 daily. Medical Branch magnesium 2019-1 Yes [id number] 400mg Take 400 Univers oxide 420 0-23 mg by ity of mg Tab 00:00: mouth [place] 00 daily. Medical Branch magnesium 2019-1 Yes [id number] 400mg Take 400 Univers oxide 420 0-23 mg by ity of mg Tab 00:00: mouth [place] 00 daily. Medical Branch magnesium 2019-1 2020- No [id number] 400mg Take 400 Univers oxide 420 0-23 04-22 mg by ity of mg Tab 00:00: 00:00 mouth [place] 00 :00 daily. [facility] Branch Insulin 2019-0 Yes [id number] 30U inject 30 Univers Glargine 9-11 Units ity of 100 unit/mL 00:00: under the [place] (3 mL) 00 skin every Medical injection morning. Branch Insulin 2019-0 Yes [id number] 30U inject 30 Univers Glargine 9-11 Units ity of 100 unit/mL 00:00: under the [place] (3 mL) 00 skin every Medical injection morning. Branch Insulin 2019-0 Yes [id number] 30U inject 30 Univers Glargine 9-11 Units ity of 100 unit/mL 00:00: under the [place] (3 mL) 00 skin every Medical injection morning. Branch Insulin 2019-0 Yes [id number] 30U inject 30 Univers Glargine 9-11 Units ity of 100 unit/mL 00:00: under the [place] (3 mL) 00 skin every Medical injection morning. Branch Insulin 2019-0 Yes [id number] 30U inject 30 Univers Glargine 9-11 Units ity of 100 unit/mL 00:00: under the [place] (3 mL) 00 skin every Medical injection morning. Branch Insulin Yes [id number] 30U inject 30 Univers Glargine 9-11 Units ity of 100 unit/mL 00:00: under the [place] (3 mL) 00 skin every Medical injection morning. Branch Insulin Yes [id number] 30U inject 30 Univers Glargine 9-11 Units ity of 100 unit/mL 00:00: under the [place] (3 mL) 00 skin every Medical injection morning. Branch Insulin 2020- No [id number] 30U inject 30 Univers Glargine 9-11 04-22 [...] mg under ity of 15:26: the skin. [place] [address] Medical Branch Cholecalcif Yes Take by Un mel ann, 5-10 mouth. ity of Vitamin D3, 15:26: [place] 2,000 unit 43 Medical capsule Branch metoprolol Yes 12.5mg Take 12.5 Univers tartrate 5-10 mg by ity of 12.5 mg 15:26: mouth 2 [place] 43 (two) Medical times Branch daily. MULTIVITAMI Yes Take by Un mel N ORAL 5-10 mouth. ity of 15:26: [place] [address] Medical Branch thiamine Yes 100mg Take 100 Univ ers (VITAMIN 5-10 mg by ity of B-1) 100 mg 15:26: mouth [place] tablet 43 daily. Medical Branch aspirin 81 Yes 81mg Take 81 mg U nivers mg chewable 5-10 by mouth ity of tablet 15:26: daily. [place] [address] Medical Branch atorvastati 0 Yes 40mg Take 40 mg Univers n 40 mg 5-10 by mouth ity of tablet 15:26: at [place] 43 bedtime. Medical Branch furosemide Yes 40mg Take 40 mg U nivers 40 mg 5-10 by mouth ity of tablet 15:26: daily. [place] [address] Medical Branch NaCl 0.9% 0 Yes 10mL [...] mg under ity of 15:26: the skin. [place] [address] Medical Branch Cholecalcif 0 Yes Take by Un mel ann, 5-10 mouth. ity of Vitamin D3, 15:26: [place] 2,000 [place] [address] Medical capsule Branch metoprolol 0 Yes 12.5mg Take 12.5 Univers tartrate 5-10 mg by ity of 12.5 mg 15:26: mouth 2 [place] [address] (two) Medical times Branch daily. MULTIVITAMI 0 Yes Take by Un mel N ORAL 5-10 mouth. ity of 15:26: [place] [address] Medical Branch thiamine 0 Yes 100mg Take 100 Univ ers (VITAMIN 5-10 mg by ity of B-1) 100 mg 15:26: mouth [place] tablet 43 daily. Medical Branch aspirin 81 0 Yes 81mg Take 81 mg U nivers mg chewable 5-10 by mouth ity of tablet 15:26: daily. [place] [address] Medical Branch atorvastati 0 Yes 40mg Take 40 mg Univers n 40 mg 5-10 by mouth ity of tablet 15:26: at [place] [address] bedtime. Medical Branch furosemide 0 Yes 40mg Take 40 mg U nivers 40 mg 5-10 by mouth ity of tablet 15:26: daily. [place] [address] Medical Branch NaCl 0.9% 0 Yes 10mL Inject 10 Uni vers (NS) Soln 5-10 mL ity of 10 mL with 15:26: intravenou [place] sodium 43 sly once Medical chloride now. Branch 2.5 mEq/mL SolP 17.125 mEq insulin 2018-0 Yes [id number] 4U inject 4 U nivers lispro, 5-10 Units ity of human, 100 00:00: under the [place] unit/mL 00 skin 3 Medical injection (three) Branch times daily before meals. insulin 2018-0 Yes [id number] 4U inject 4 U nivers lispro, 5-10 Units ity of human, 100 00:00: under the [place] unit/mL 00 skin 3 Medical injection (three) Branch times daily before meals. insulin 2018-0 Yes [id number] 4U inject 4 U nivers lispro, 5-10 Units ity of human, 100 00:00: under the [place] unit/mL 00 skin 3 Medical injection (three) Branch times daily before meals. insulin 2018-0 Yes [id number] 4U inject 4 U nivers lispro, 5-10 Units ity of human, 100 00:00: under the [place] unit/mL 00 skin 3 Medical injection (three) Branch times daily before meals. insulin 2018-0 Yes [id number] 4U inject 4 U nivers lispro, 5-10 Units ity of human, 100 00:00: under the [place] unit/mL 00 skin 3 Medical injection (three) Branch times daily before meals. insulin 2018-0 Yes [id number] 4U inject 4 U nivers lispro, 5-10 Units ity of human, 100 00:00: under the [place] unit/mL 00 skin 3 Medical injection (three) Branch times daily before meals. Insulin 2018-0 Yes [id number] 18U inject Uni vers Glargine 5-10 18-24 ity of 100 unit/mL 00:00: Units [place] (3 mL) 00 under the Medical injection skin every Bran ch morning. insulin 2018-0 Yes [id number] 4U inject 4 U nivers lispro, 5-10 Units ity of human, 100 00:00: under the [place] unit/mL 00 skin 3 Medical injection (three) Branch times daily before meals. insulin 2018-0 Yes [id number] 4U inject 4 U nivers lispro, 5-10 Units ity of human, 100 00:00: under the [place] unit/mL 00 skin 3 Medical injection (three) Branch times daily before meals. insulin Yes [id number] 4U inject 4 U nivers lispro, 5-10 Units ity of human, 100 00:00: under the [place] unit/mL 00 skin 3 Medical injection (three) Branch times daily before meals. insulin Yes [id number] 4U inject 4 U nivers lispro, 5-10 Units ity of human, 100 00:00: under the [place] unit/mL 00 skin 3 Medical injection (three) Branch times daily before meals. insulin 2018- Yes [id number] 4U inject 4 U nivers lispro, 5-10 Units ity of human, 100 00:00: under the [place] unit/mL 00 skin 3 Medical injection (three) Branch times daily before meals. insulin 2019- No [id number] 4U inject 4 Univers lispro, 5-10 05-07 Units ity of human, 100 00:00: 00:00 under the [place] unit/mL 00 :00 skin 3 Medical injection (three) Branch times daily before meals. insulin 2019- No [id number] 4U inject 4 Univers lispro, 5-10 05-07 Units ity of human, 100 00:00: 00:00 under the [place] unit/mL 00 :00 skin 3 Medical injection (three) Branch times daily before meals. Insulin 2019- No [id number] 18U inject Un mel Glargine - 09-11 18-24 ity of 100 unit/mL 00:00: [...] mouth [place] 29 daily. Medical Branch folic 2018-0 Yes Take by Univers acid/vit B 3-08 mouth. ity of complex and 16:39: [place] C (B 29 Medical COMPLEX-VIT Branch RAZA C-FOLIC ACID ORAL) potassium 2018- Yes 20meq Take 20 Univ ers chloride 20 3-08 mEq by ity of mEq packet 16:39: mouth [place] 29 daily. Medical Branch Potassium Potassium Yes [...] Immunizations Ordered Filled Immunization Date Status Comments [facility] e Immunization Name Name SARS-COV-2 COVID-19 2021-09-16 Completed Unive rsity of MODERNA VACCINE 00:00:00 [facility] [place] [facility] SARS-COV-2 COVID-19 2021-09-16 Completed Unive rsity of MODERNA VACCINE 00:00:00 [facility] [place] [facility] SARS-COV-2 COVID-19 2021-09-16 Completed Unive rsity of MODERNA VACCINE 00:00:00 [facility] [place] [facility] SARS-COV-2 COVID-19 2021-09-16 Completed Unive rsity of MODERNA VACCINE 00:00:00 [facility] [place] [facility] SARS-COV-2 COVID-19 2021-08-17 Completed Unive rsity of MODERNA VACCINE 00:00:00 [facility] [place] [facility] Influenza High Dose 2021-08-17 Completed Unive rsity of 00:00:00 [facility] SARS-COV-2 COVID-19 2021-08-17 Completed Unive rsity of MODERNA VACCINE 00:00:00 [facility] Branch Influenza High Dose 2021-08-17 Completed Unive rsity of 00:00:00 [facility] SARS-COV-2 COVID-19 2021-08-17 Completed Unive rsity of MODERNA VACCINE 00:00:00 [facility] [place] [facility] Influenza High Dose 2021-08-17 Completed Unive rsity of 00:00:00 [facility] SARS-COV-2 COVID-19 2021-08-17 Completed Unive rsity of MODERNA VACCINE 00:00:00 [facility] [place] [facility] Influenza High Dose 2021-08-17 Completed Unive rsity of 00:00:00 [facility] Zoster(Zostavax)( 2020-09-14 Completed Unive rsity of ingles) 00:00:00 [facility] Zoster(Zostavax)( 2020-09-14 Completed Unive rsity of ingles) 00:00:00 [facility] Zoster(Zostavax)( 2020-09-14 Completed Unive rsity of ingles) 00:00:00 [facility] Zoster(Zostavax)( 2020-09-14 Completed Unive rsity of ingles) 00:00:00 [facility] Influenza High Dose 2020-07-13 Completed Unive rsity of 00:00:00 [facility] Influenza High Dose 2020-07-13 Completed Unive rsity of 00:00:00 [facility] Influenza High Dose 2020-07-13 Completed Unive rsity of 00:00:00 [facility] Influenza High Dose 2020-07-13 Completed Unive rsity of 00:00:00 [facility] Influenza High Dose 2019-09-15 Completed Unive rsity of 00:00:00 [facility] Influenza High Dose 2019-09-15 Completed Unive rsity of 00:00:00 [facility] Influenza High Dose 2019-09-15 Completed Unive rsity of 00:00:00 [facility] Influenza High Dose 2019-09-15 Completed Unive rsity of 00:00:00 [facility] Influenza Virus 2018-09-09 Completed Universit y of Vaccine 00:00:00 [facility] Influenza Virus 2018-09-09 Completed Universit y of Vaccine 00:00:00 [facility] Influenza Virus 2018-09-09 Completed Universit y of Vaccine 00:00:00 [facility] Influenza Virus 2018-09-09 Completed Universit y of Vaccine 00:00:00 [facility] Influenza Virus 2018-09-09 Completed Universit y of Vaccine 00:00:00 [facility] Influenza Virus 2018-09-09 Completed Universit y of Vaccine 00:00:00 [facility] Influenza Virus 2018-09-09 Completed Universit y of Vaccine 00:00:00 [facility] Influenza Virus 2018-09-09 Completed Universit y of Vaccine 00:00:00 [facility] Influenza Virus 2018-09-09 Completed Universit y of Vaccine 00:00:00 [facility] Influenza Virus 2018-09-09 Completed Universit y of Vaccine 00:00:00 [facility] Influenza Virus 2018-09-09 Completed Universit y of Vaccine 00:00:00 [facility] Influenza Virus 2018-09-09 Completed Universit y of Vaccine 00:00:00 [facility] Influenza Virus 2018-09-09 Completed Universit y of Vaccine 00:00:00 [facility] Influenza Virus 2018-09-09 Completed Universit y of Vaccine 00:00:00 [facility] Influenza Virus 2018-09-09 Completed Universit y of Vaccine 00:00:00 [facility] Influenza Virus 2018-09-09 Completed Universit y of Vaccine 00:00:00 [facility] Influenza Virus 2018-09-09 Completed Universit y of Vaccine 00:00:00 [facility] Influenza Virus 2018-09-09 Completed Universit y of Vaccine 00:00:00 [facility] Influenza Virus 2018-09-09 Completed Universit y of Vaccine 00:00:00 [facility] Influenza Virus 2018-09-09 Completed Universit y of Vaccine 00:00:00 [facility] Influenza Virus 2018-09-09 Completed Universit y of Vaccine 00:00:00 [facility] Influenza Virus 2018-09-09 Completed Universit y of Vaccine 00:00:00 [facility] Pneumococcal 2016-11-02 Completed University o f Polysaccharide, [...] 2016-11-02 Completed University o f Polysaccharide, 00:00:00 [place] Med ical PPSV23 (PNEUMOVAX) Branch Vital Signs Vital Name Observation Time Observation Value Comments Source Systolic blood 2022-03-01 16:36:00 143 mm[Hg] Univer sity of [facility] Diastolic blood 2022-03-01 16:36:00 80 [facility] 16:36:00 98 /[facility] Respiratory rate 2022-03-01 16:36:00 16 /min [facility] Oxygen saturation in 2022-03-01 16:36:00 97 /min [facility] Arterial blood by [facility] Pulse oximetry [place] Body temperature 2022-03-01 11:42:00 36.94 Priyanka [facility] Body height 2022-03-01 11:42:00 170.2 cm [facility] Body weight 2022-03-01 11:42:00 77.111 kg [facility] BMI 2022-03-01 11:42:00 26.63 kg/m2 [facility] Systolic blood 2021-11-02 17:17:00 109 mm[Hg] Univer sity of [facility] Diastolic blood 2021-11-02 17:17:00 67 mm[Hg] Unive rsity of [facility] Heart rate 2021-11-02 17:17:00 84 /min [facility] Body temperature 2021-11-02 17:17:00 36.44 Priyanka [facility] Respiratory rate 2021-11-02 17:17:00 18 /min Univ ersity of [place] [facility] Oxygen saturation in 2021-11-02 17:17:00 95 /min University of Arterial blood by [place] [employer] Pulse oximetry Branch Body weight 2021-11-02 09:17:00 79.969 kg Universi ty of [place] [facility] BMI 2021-11-02 09:17:00 27.61 kg/m2 Universi ty [facility] [place] [facility] Body height 2021-10-31 05:46:00 170.2 cm Universi ty of [place] [facility] Systolic blood 2021-04-25 22:36:00 118 mm[Hg] Univer sity of pressure [place] [facility] Diastolic blood 2021-04-25 22:36:00 70 mm[Hg] Unive rsity of pressure [place] [facility] Heart rate 2021-04-25 22:36:00 68 /min Universi ty of [place] [facility] Respiratory rate 2021-04-25 22:36:00 18 /min Univ ersity of [place] [facility] Oxygen saturation in 2021-04-25 22:36:00 99 /min University of Arterial blood by [facility] Pulse oximetry Branch Body temperature 2021-04-25 15:42:00 36.44 Priyanka Univ ersity of [place] [facility] Body weight 2021-04-25 15:42:00 81.647 kg Universi ty of [place] [facility] BMI 2021-04-25 15:42:00 27.37 kg/m2 [facility]i ty [facility] [place] [facility] Systolic blood 2020-06-26 10:00:00 124 mm[Hg] Univer sity of pressure [place] [facility] Diastolic blood 2020-06-26 10:00:00 78 mm[Hg] Unive rsity of pressure [place] [facility] Respiratory rate 2020-06-26 10:00:00 18 /min Univ ersity of [place] [facility] Oxygen saturation in 2020-06-26 10:00:00 98 /min University of Arterial blood by [place] [employer] Pulse oximetry Branch Heart rate 2020-06-26 [...] /min University of Arterial blood by [place] [employer] Pulse oximetry Branch Heart rate 2020-06-26 [...] /min University of Arterial blood by [place] [employer] Pulse oximetry Branch Body temperature 2020-05-24 [...] University of Arterial blood by [facility] Pulse oximetry Branch Body temperature 2020-05-24 11:44:00 36.94 Priyanka Univ ersity of [place] [facility] Body height 2020-05-24 11:44:00 172.7 cm Universi ty [facility] [place] [facility] Body weight 2020-05-24 11:44:00 74.844 kg Universi ty [facility] [place] [facility] BMI 2020-05-24 11:44:00 25.09 kg/m2 [facility] [place] [facility] Systolic blood 2020-03-24 02:31:00 127 mm[Hg] Univer sity of pressure [place] [facility] Diastolic blood 2020-03-24 02:31:00 72 mm[Hg] Unive rsity of pressure [place] [facility] Heart rate 2020-03-24 02:31:00 69 /min [facility]i ty [facility] [place] [facility] Body temperature 2020-03-24 02:31:00 36.39 Priyanka Univ ersity of [place] [facility] Respiratory rate 2020-03-24 02:31:00 18 /min Univ ersity of [place] [facility] Oxygen saturation in 2020-03-24 02:31:00 97 /min University of Arterial blood by [facility] Pulse oximetry Branch Systolic blood 2020-03-23 21:35:00 100 mm[Hg] Univer sity of pressure [place] [facility] Diastolic blood 2020-03-23 21:35:00 59 mm[Hg] Unive rsity of pressure [place] [facility] Heart rate 2020-03-23 21:35:00 79 /min Universi ty [facility] [place] [facility] Body temperature 2020-03-23 21:35:00 36.78 Priyanka Univ ersity of [place] [facility] Respiratory rate 2020-03-23 21:35:00 18 /min Univ ersity of [place] [facility] Oxygen saturation in 2020-03-23 21:35:00 99 /min University of Arterial blood by [facility] Pulse oximetry Branch Body weight 2020-03-23 09:41:00 [...] /min University of Arterial blood by [place] [employer] Pulse oximetry Branch Body temperature 2020-03-21 [...] 95 /min University of Arterial blood by [place] [employer] Pulse oximetry Branch Body height 2020-03-05 02:35:00 172.7 cm [facility] [place] [facility] Body weight 2020-03-05 02:35:00 73.483 kg [facility] [place] [facility] BMI 2020-03-05 02:35:00 24.63 kg/m2 [facility] [place] [facility] Systolic blood 2020-03-02 15:49:00 122 mm[Hg] Univer sity of pressure [place] [facility] Diastolic blood 2020-03-02 15:49:00 81 mm[Hg] Unive rsity of pressure [place] [facility] Heart rate 2020-03-02 15:49:00 89 /min Universi ty of [facility] Body temperature 2020-03-02 15:49:00 37.06 Priyanka [facility] ersity of [facility] Respiratory rate 2020-03-02 15:49:00 19 /min [facility] ersity of [facility] Oxygen saturation in 2020-03-02 15:49:00 96 /min University of Arterial blood by [facility] Pulse oximetry Branch Body height 2020-03-01 00:54:00 170.2 cm Universi ty of [facility] Body weight 2020-03-01 00:54:00 76.975 kg Universi ty of [facility] BMI 2020-03-01 00:54:00 26.58 kg/m2 Universi ty of [facility] Systolic blood 2020-01-17 21:08:00 116 mm[Hg] [facility] Diastolic blood 2020-01-17 21:08:00 78 mm[Hg] Unive rsity of pressure [facility] Heart rate 2020-01-17 21:08:00 88 /min [facility] Body temperature 2020-01-17 21:08:00 36.72 [facility] Res[facility] rate 2020-01-17 21:08:00 18 /min [facility] Oxygen saturation in 2020-01-17 21:08:00 98 /min University of Arterial blood by [facility] Pulse oximetry Branch Body height 2020-01-16 06:21:00 172.7 cm [facility] Body weight 2020-01-16 04:35:00 83.462 kg Universi ty [facility] BMI 2020-01-16 04:35:00 27.98 kg/m2 Universi ty [facility] Procedures Procedure Date / Time Performing Clinician Source Performed XR LUMBAR SPINE 2 VW 2022-03-01 14:18:00 Angelika Aguilar [facility] EXTERNAL PROVIDER RECORDS 2021-11-19 06:01:00 Doctor Unassigned, [facility] Merna [facility] POCT GLUCOSE (AUTOMATED) 2021-11-02 22:49:00 Aida Shah [facility] POCT GLUCOSE (AUTOMATED) 2021-11-02 17:06:00 [place], Aida Uni [facility] POCT GLUCOSE (AUTOMATED) 2021-11-02 13:30:00 Alyssa Aida Nilda [facility] TROPONIN I 2021-11-02 09:29:00 [facility] BASIC METABOLIC PANEL 2021-11-02 09:29:00 [facility] ([facility], K, CL, CO2, GLUCOSE, Medica l Branch BUN, CREATININE, CA) CBC WITH DIFF 2021-11-02 09:29:00 [facility] N-TERMINAL PRO-BNP 2021-11-02 09:29:00 Alexandra [facility] POCT GLUCOSE (AUTOMATED) 2021-11-02 01:27:00 Alyssa Aida Nilda [facility] POCT GLUCOSE (AUTOMATED) 2021-11-01 17:37:00 Alyssa Aida [facility] POCT GLUCOSE (AUTOMATED) 2021-11-01 13:40:00 Alyssa Aida [facility] POCT GLUCOSE (AUTOMATED) 2021-11-01 01:10:00 Alyssa Aida [facility] POCT GLUCOSE (AUTOMATED) 2021-10-31 22:28:00 [facility] ([facility]OMATED) 2021-10-31 17:29:00 [facility]IN I 2021-10-31 16:25:00 [facility] TRANSTHORACIC ECHO (TTE) 2021-10-31 15:53:00 Alexandra Hdz [facility] COMPLETE W/ CONTRAST Medical [facility] POCT GLUCOSE (AUTOMATED) 2021-10-31 13:39:00 Martha [facility] TROPONIN I 2021-10-31 10:08:00 [facility] BASIC METABOLIC PANEL 2021-10-31 10:08:00 [facility] (NA, K, CL, CO2, GLUCOSE, Medica l Branch BUN, CREATININE, CA) LIPID PANEL ([id number])(TOTAL 2021-10-31 10:08:00 Alexandra Hdz [facility] TRIGLYCERIDES, HDL) CBC WITH DIFF 2021-10-31 10:08:00 [facility] URINALYSIS 2021-10-31 10:08:00 [facility] N-TERMINAL PRO-BNP 2021-10-31 10:08:00 Alexandra [facility] TROPONIN I 2021-10-31 06:17:00 [facility] XR CHEST 1 VW 2021-10-31 01:30:56 Martha Drake [facility] LIPASE 2021-10-31 01:25:00 Martha Drake [facility] TROPONIN I 2021-10-31 01:25:00 Martha Drake [facility] COMP. METABOLIC PANEL 2021-10-31 01:25:00 Martha Drake [facility] ([id number]) Medical Branch CBC WITH DIFF 2021-10-31 01:25:00 Martha Drake [facility] GLYCOSYLATED HEMOGLOBIN 2021-10-31 01:25:00 [facility] PROTHROMBIN TIME / INR 2021-10-31 01:25:00 [facility] ACTIVATED PARTIAL 2021-10-31 01:25:00 Martha Drake [facility] THRLAS [facility] N-TERMINAL PRO-BNP 2021-10-31 01:25:00 [facility] COVID-19 (ID NOW RAPID 2021-10-31 01:25:00 Martha Drake [facility] TESTING) Medical Branch LAB ONLY COVID 2021-10-31 01:25:00 Martha Drake [facility] INTERPRETATION [facility] HB ECG ROUTINE & RHYTHM 2021-10-31 01:20:03 Martha Drake [facility] STRIP [facility] URINALYSIS 2021-04-25 21:01:00 [facility] XR LUMBAR SPINE 2 VW 2021-04-25 18:41:00 Nallely Zhao [facility] XR HIPS 2 VW LEFT 2021-04-25 18:41:00 Nallely Zhao [facility] CONSENT/REFUSAL FOR 2021-04-25 15:43:06 Doctor Unacassie, [facility] DIAGNOSIS AND TREATMENT [facility] CT CERVICAL SPINE WO 2020-06-26 09:35:01 Martha Drake [facility] CONTRAST [facility] CT LUMBAR SPINE WO 2020-06-26 09:35:01 Martha Drake [facility] CONTRAST [facility] CT THORACIC SPINE WO 2020-06-26 09:35:01 Martha Drake [facility] UNILATERAL DUPLEX SCAN OF 2020-05-24 14:53:40 [facility] Medical B ranch XR ANKLE 3+ VW LEFT 2020-05-24 13:22:26 [facility]it [facility] HEPATIC FUNCTION PANEL 2020-05-24 13:13:00 Charanjit Heck [facility] ([id number]) (ALB,T.PRO,BILI Medical Branch T,BU/BC,ALT,AST,ALK PHOS) BASIC METABOLIC PANEL 2020-05-24 13:13:00 Charanjit Heck [facility] (NA, K, CL, CO2, GLUCOSE, Medica l Branch BUN, CREATININE, CA) CBC WITH DIFFERENTIAL 2020-05-24 13:13:00 Charanjit Heck [facility] PROTHROMBIN TIME / INR 2020-05-24 13:13:00 Charanjit Heck [facility] ACTIVATED PARTIAL 2020-05-24 13:13:00 Charanjit Heck [facility] NOTICE OF PRIVACY 2020-05-24 11:38:26 Doctor Unacassie, [facility] PRACTICES [facility] CONSENT/REFUSAL FOR 2020-05-24 11:35:52 Doctor Unassigned, [facility] DIAGNOSIS AND TREATMENT [facility] POCT GLUCOSE (AUTOMATED) 2020-03-23 22:32:00 Jamel Flores [facility] POCT GLUCOSE (AUTOMATED) 2020-03-23 18:07:00 Jamel Flores [facility] POCT GLUCOSE (AUTOMATED) 2020-03-23 14:57:00 Jamel Flores [facility] ECHO ROUTINE W/DOPPLER 2020-03-23 13:33:57 [facility] COL[facility] EKG-12 LEAD 2020-03-23 12:56:59 Charisma Jamel [facility] MAGNESIUM 2020-03-23 11:15:00 Jerome [facility] TROPONIN I 2020-03-23 11:15:00 Jerome [facility] BASIC METABOLIC PANEL 2020-03-23 11:15:00 Tereza Cano [facility] (NA, K, CL, CO2, GLUCOSE, Medica l Branch BUN, CREATININE, CA) PROTHROMBIN TIME / INR 2020-03-23 11:15:00 Tereza Cano [facility] ACTIVATED PARTIAL 2020-03-23 11:15:00 [facility] EKG-12 LEAD 2020-03-23 07:51:19 Jamel Flores [facility] MAGNESIUM 2020-03-23 05:55:00 Jerome [facility] TROPONIN I 2020-03-23 05:55:00 Jerome [facility] BASIC METABOLIC PANEL 2020-03-23 05:55:00 Jerome [facility] (NA, K, CL, CO2, GLUCOSE, Medica l Branch BUN, CREATININE, CA) LIPID PANEL ([id number])(TOTAL 2020-03-23 05:55:00 Tereza Cano [facility] TRIGLYCERIDES, HDL) PROTHROMBIN TIME / INR 2020-03-23 02:55:00 Sallie Eckert [facility] ACTIVATED PARTIAL 2020-03-23 02:55:00 Sallie Eckert [facility] JACEK [facility] XR CHEST 2 VW 2020-03-23 01:52:37 Danielle [facility] CORONAVIRUS COVID-19 2020-03-23 00:50:00 Esteban Singletary [facility] FERRITIN SERUM 2020-03-22 23:36:00 Jerome [facility] TROPONIN I 2020-03-22 23:36:00 Danielle [facility] COMP. METABOLIC PANEL 2020-03-22 23:36:00 Danielle Esteban [facility] ([id number] IRON PANEL 2020-03-22 23:36:00 Jerome [facility] CBC WITH DIFFERENTIAL 2020-03-22 23:36:00 [facility]le [facility] N-TERMINAL PRO-BNP 2020-03-22 23:36:00 Esteban Singletary [facility] EKG-12 LEAD 2020-03-22 23:08:53 [facility] 2020-03-22 23:08:15 Danielle [facility] XR CHEST 1 VW 2020-03-21 20:42:35 Myles Harry [facility] LACTIC ACID WHOLE BLOOD 2020-03-21 20:38:00 Myles Harry Uni [facility] LIPASE 2020-03-21 20:19:00 Myles Harry [facility] TROPONIN I 2020-03-21 20:19:00 Myles Harry [facility] COMP. METABOLIC PANEL 2020-03-21 20:19:00 Myles Harry [facility] ([id number]) [facility] PROTHROMBIN TIME / INR 2020-03-21 20:19:00 Myles Harry [facility] N-TERMINAL PRO-BNP 2020-03-21 20:19:00 Myles [facility] CORONAVIRUS COVID-19 2020-03-21 20:19:00 Myles Harry [facility] EKG-12 LEAD 2020-03-21 20:11:28 Myles Harry [facility] POCT GLUCOSE (AUTOMATED) 2020-03-07 20:56:00 Julio Cesar Sarah [employer] [facility] POCT GLUCOSE (AUTOMATED) 2020-03-07 15:34:00 EdionrosalioSarah [employer] [facility] POCT GLUCOSE (AUTOMATED) 2020-03-07 12:56:00 [facility]elo [facility] URIC ACID 2020-03-07 10:14:00 Holland Garza [facility] TROPONIN I 2020-03-07 10:14:00 Steven [facility] BASIC METABOLIC PANEL 2020-03-07 10:14:00 Julio Cesar [facility] (NA, K, CL, CO2, GLUCOSE, Medica l Branch BUN, CREATININE, CA) CBC WITH DIFFERENTIAL 2020-03-07 10:14:00 Edconsuelo [facility] N-TERMINAL PRO-BNP 2020-03-07 10:14:00 Lulu Harris [facility] POCT GLUCOSE (AUTOMATED) 2020-03-06 21:16:00 Julio Cesar [facility] [employer] [facility] POCT GLUCOSE (AUTOMATED) 2020-03-06 16:10:00 Julio Cesar Sarah [employer] [facility] POCT GLUCOSE (AUTOMATED) 2020-03-06 12:38:00 Edionrosalio [facility] TROPONIN I 2020-03-06 08:51:00 Steven [facility] BASIC METABOLIC PANEL 2020-03-06 08:51:00 [facility] (NA, K, CL, CO2, GLUCOSE, Medica l Branch BUN, CREATININE, CA) CBC WITH DIFFERENTIAL 2020-03-06 08:51:00 Edconsuelo [facility] POCT GLUCOSE (AUTOMATED) 2020-03-06 01:16:00 Edionrosalio [facility] TROPONIN I 2020-03-05 23:25:00 Julio Cesar [facility] POCT GLUCOSE (AUTOMATED) 2020-03-05 21:14:00 Julio Cesar [facility] POCT GLUCOSE (AUTOMATED) 2020-03-05 16:39:00 Julio Cesar [facility] POCT GLUCOSE (AUTOMATED) 2020-03-05 12:47:00 Ramóntylerrosalio [facility] TROPONIN I 2020-03-05 09:50:00 Ramóntylerrosalio [facility] BASIC METABOLIC PANEL 2020-03-05 09:50:00 [facility] (NA, K, CL, CO2, GLUCOSE, Medica l Branch BUN, CREATININE, CA) CBC WITH DIFFERENTIAL 2020-03-05 09:50:00 [facility]12 LEAD 2020-03-05 00:36:54 [facility] 2020-03-05 00:31:[address] [facility] CORONAVIRUS COVID-19 2020-03-05 00:03:00 Charanjit Heck [facility] XR CHEST 1 VW 2020-03-04 23:58:59 Charanjit Heck [facility] LIPASE 2020-03-04 23:29:00 Charanjit Heck [facility] TROPONIN I 2020-03-04 23:29:00 Charanjit Heck [facility] HEPATIC FUNCTION PANEL 2020-03-04 23:29:00 Charanjit Heck [facility] ([id number]) (ALB,T.PRO,BILI Medical Branch T,BU/BC,ALT,AST,ALK PHOS) BASIC METABOLIC PANEL 2020-03-04 23:29:00 Charanjit Heck [facility] (NA, K, CL, CO2, GLUCOSE, Medica l Branch BUN, CREATININE, CA) CBC WITH DIFFERENTIAL 2020-03-04 23:29:00 Charanjit Heck [facility] PROTHROMBIN TIME / INR 2020-03-04 23:29:00 Charanjit Heck [facility] ACTIVATED PARTIAL 2020-03-04 23:29:00 [facility] THRMPLAS [facility] N-TERMINAL PRO-BNP 2020-03-04 23:29:00 Charanjit Heck [facility] EKG-12 LEAD 2020-03-04 23:15:42 Umang [facility] EKG-12 LEAD 2020-03-04 23:10:23 Umang [facility] EMERGENCY DEPARTMENT 2020-03-04 05:01:00 Doctor Unassigned, [facility] DOCUMENTS Merna [facility] POCT GLUCOSE (AUTOMATED) 2020-03-02 15:52:00 Lulu Harris [facility] POCT GLUCOSE (AUTOMATED) 2020-03-02 12:39:00 Lulu Harris [facility] MAGNESIUM 2020-03-02 08:57:00 Carolyn [facility] BASIC METABOLIC PANEL 2020-03-02 08:57:00 Carolyn alek [facility] (NA, K, CL, CO2, GLUCOSE, Medica l Branch BUN, CREATININE, CA) N-TERMINAL PRO-BNP 2020-03-02 08:57:00 Carolyn alek [facility] POCT GLUCOSE (AUTOMATED) 2020-03-01 20:39:00 Lulu Harris [facility] MAGNESIUM 2020-03-01 08:43:00 Lulu Harris [facility] TROPONIN I 2020-03-01 08:43:00 Carolyn [facility] BASIC METABOLIC PANEL 2020-03-01 08:43:00 Lulu Harris [facility] (NA, K, CL, CO2, GLUCOSE, Medica l Branch BUN, CREATININE, CA) CBC WITH DIFFERENTIAL 2020-03-01 08:43:00 Lulu Harris [facility] N-TERMINAL PRO-BNP 2020-03-01 08:43:00 Carolyn [facility] VITAMIN B12, LEVEL 2020-03-01 03:49:00 Carolyn [facility] FOLATE 2020-03-01 03:49:00 Carolyn alek [facility] SEDIMENTATION RATE 2020-03-01 03:49:00 Carolyn [facility] POCT GLUCOSE (AUTOMATED) 2020-03-01 03:39:00 Lulu Harris [facility] PHOSPHORUS 2020-03-01 02:28:00 Lulu Harris [facility] URIC ACID 2020-03-01 02:28:00 Carolyn [facility] TROPONIN I 2020-03-01 02:28:00 Carolyn [facility] HEPATIC FUNCTION PANEL 2020-03-01 02:28:00 Ivory Leon [facility] ([id number]) (ALB,T.PRO,[facility] T,BU/BC,ALT,AST,ALK PHOS) PROTHROMBIN TIME / INR 2020-03-01 02:28:00 [facility]yn [facility] N-TERMINAL PRO-BNP 2020-03-01 02:28:00 Lulu Harris [facility] PROCALCITONIN 2020-03-01 02:28:00 Carolyn [facility] EKG-12 LEAD 2020-03-01 01:54:29 Carolyn [facility] EKG-12 LEAD 2020-02-29 23:16:21 Bobo Urrutia [facility] XR CHEST 1 VW COVID 2020-02-29 23:14:25 [facility] E[facility]-12 LEAD 2020-02-29 23:13:50 Bobo Urrutia [facility] LACTIC ACID WHOLE BLOOD 2020-02-29 22:21:00 Bobo Urrutia [facility] CORONAVIRUS COVID-19 2020-02-29 22:20:00 Bobo Urrutia [facility] CREATINE KINASE 2020-02-29 22:14:00 Carolyn [facility] URIC ACID 2020-02-29 22:14:00 Carolyn [facility] LIPASE 2020-02-29 22:14:00 Bobo Urrutia [facility] MAGNESIUM 2020-02-29 22:14:00 Carolyn alek [facility] TROPONIN I 2020-02-29 22:14:00 Bobo Urrutia [facility] THYROID STIMULATING 2020-02-29 22:14:00 Ivory Leon [facility] HORMONE [facility] BASIC METABOLIC PANEL 2020-02-29 22:14:00 Bobo Urrutia [facility] (NA, K, CL, CO2, GLUCOSE, Medica l Branch BUN, CREATININE, CA) CBC WITH DIFFERENTIAL 2020-02-29 22:14:00 Bobo Urrutia [facility] GLYCOSYLATED HEMOGLOBIN 2020-02-29 22:14:00 Carolyn [facility] [address] [facility] (A1C) [facility] N-TERMINAL PRO-BNP 2020-02-29 22:14:00 Ivory Leon [facility] EKG-12 LEAD 2020-02-29 21:59:12 Bobo Urrutia [facility] EKG-12 LEAD 2020-02-29 21:48:49 Bobo Urrutia [facility] EMERGENCY DEPARTMENT 2020-02-29 05:01:00 Doctor Unassigned, [facility] DOCUMENTS [facility] POCT GLUCOSE (AUTOMATED) 2020-01-17 18:15:00 Sarah Adorno [facility] TROPONIN I 2020-01-17 16:31:00 Julio Cesar [facility] ACTIVATED PARTIAL 2020-01-17 16:31:00 Carolyn [facility] THRMPLAS JACEK [facility] POCT GLUCOSE (AUTOMATED) 2020-01-17 11:56:00 [facility] TROPONIN I 2020-01-17 09:52:00 Julio Cesar [facility] BASIC METABOLIC PANEL 2020-01-17 09:52:00 Julio Cesar [facility] (NA, K, CL, CO2, GLUCOSE, Medica l Branch BUN, CREATININE, CA) CBC WITH DIFFERENTIAL 2020-01-17 09:52:00 Julio Cesar [facility] ACTIVATED PARTIAL 2020-01-17 09:52:00 Julio Cesar [facility] POCT GLUCOSE (AUTOMATED) 2020-01-16 23:59:00 Julio Cesar [facility] EKG-12 LEAD 2020-01-16 22:15:50 Julio Cesar [facility] TROPONIN I 2020-01-16 20:04:00 Julio Cesar [facility] ACTIVATED PARTIAL 2020-01-16 20:04:00 Kael [facility] POCT GLUCOSE (AUTOMATED) 2020-01-16 17:05:00 Julio Cesar [facility] POCT GLUCOSE (AUTOMATED) 2020-01-16 13:38:00 [facility]OP[facility] 2020-01-16 11:11:00 Julio Cesra [facility] LIPID PANEL ([id number])(TOTAL 2020-01-16 11:11:00 Julio Cesar [facility] TRIGLYCERIDES, HDL) ACTIVATED PARTIAL 2020-01-16 11:11:00 Julio Cesar [facility] CRITICAL CARE 2020-01-16 05:48:18 Umang [facility] XR CHEST 1 VW 2020-01-16 04:46:44 Umang [facility] TROPONIN I 2020-01-16 04:38:00 Umang [facility] HEPATIC FUNCTION PANEL 2020-01-16 04:38:00 Charanjit Heck [facility] ([id number]) (ALB,T.PRO,BILI Medical Branch T,BU/BC,ALT,AST,ALK PHOS) BASIC METABOLIC PANEL 2020-01-16 04:38:00 Charanjit Heck [facility] (NA, K, CL, CO2, GLUCOSE, Medica l Branch BUN, CREATININE, CA) CBC WITH DIFFERENTIAL 2020-01-16 04:38:00 Umang Charanjit [facility] GLYCOSYLATED HEMOGLOBIN 2020-01-16 04:38:00 Sarah Adorno [facility] (A1C) [facility] PROTHROMBIN TIME / INR 2020-01-16 04:38:00 Charanjit Heck [facility] ACTIVATED PARTIAL 2020-01-16 04:38:00 Charanjit Heck [facility] THRLAS [facility] N-TERMINAL PRO-BNP 2020-01-16 04:38:00 Charanjit Heck [facility] EKG-12 LEAD 2020-01-16 04:37:48 Charanjit Heck [facility] EKG-12 LEAD 2020-01-16 04:35:35 Charanjit Heck [facility] AUTHORIZATION FOR RELEASE 2019-07-12 05:01:00 Doctor Unassigned, [facility] Encounters Start End Encounter Admission Attending Care Care Encounter Source Date/Time Date/Time Type Type Clinicians Facility Department ID 2022-03-06 Outpatient [facility] [id number] [place] 08:51:10 [id number] [facility] 2021-12-16 In[facility] [id number] [facility] 11:30:00 [facility] 2021-12-16 Outpatient [facility] [id number] 09:19:01 [facility] 2021-12-11 Outpatient Lester, [facility] [id number] [facility] 14:38:21 Anneliese [facility] 2021-12-11 Outpatient Lester, [facility] [id number] [facility] 11:50:18 Anneliese [id number] [facility] 2021-09-16 Emergency [facility] [id number] Univers 00:23:34 ity of [facility] 2021-09-13 Emergency [facility] [id number] Univers 11:42:35 ity of [facility] 2021-09-13 Emergency [facility] [id number] Univers 05:40[facility]22-[facility]05 2022-03-[address] [facility] [facility] [id number] 06:12:00 22:30:00 BRODIE 2022-03-01 2022-03-01 Emergency [facility] [id number] Univers 06:52:00 12:04:00 ANGELIKA ity of [facility] 2022-03-01 2022-03-01 Emergency [facility] [id number] Univers 06:52:00 12:04:00 Angelika RAMSEY [id number] ity [facility] [id number] [facility] [id number] [facility] 084 Branch 2021-12-25 2021-12-25 Inpatient ATTAR, [facility] [id number] [place] 00:00:00 00:00:[address] 2021-12-19 2021-12-25 Inpatient LAUREN, [facility] [id number] [place] 00:00:00 00:00:00 JAYSON [address] 2021-12-24 2021-12-24 [facility] [id number] [facility] 2021-12-20 2021-12-20 Inpatient ATTAR, [facility] [id number] [place] 00:00:00 00:00:[address] 2021-12-17 2021-12-17 ambulatory STLMLC [facility] [id number] [facility] 2021-12-16 2021-12-16 [facility] [id number] [facility] 2021-11-19 2021-11-19 Orders Doctor JONES [id number] Univers 00:00:00 00:00:00 Only Unassigned, ASHLEIGH [id number] ity of [facility] [id number] [facility] [id number] [facility] 009 Branch 2021-11-04 2021-11-04 Transition SHAREE Maria [id number] Univers 00:00:00 00:00:00 of Care Supa GREWAL [id number] [place] [id number] [facility] 403 Branch 2021-10-30 2021-11-02 Inpatient X ALYSSA [facility] ZEFERINO [id number] Univers 19:14:00 18:15:00 AIDA ity of [facility] 2021-10-30 2021-11-02 [facility] [id number] Univers 19:14:00 18:15:00 Encounter Aida Shah [id number] ity of [place] [id number] [facility] [id number] [facility] 081 Branch 2021-05-17 2021-05-17 Letter PcpROBERT [id number] Univers 00:00:00 00:00:00 (Out) Patient ASHLEIGH [id number] it y of [facility] [id number] [id number] [facility] 019 Branch 2021-04-25 2021-04-25 Emergency Cece, TRAUMA [id number] Univers 10:43:00 17:38:00 [facility] [id number] i [place] [id number] [facility] 014 Branch 2020-06-26 2020-06-26 Emergency [facility] [id number] 03:50:00 06:45:00 Martha Ramsey [id number] [place] 4.2.7.2.686 [place] [id number] 2020-06-26 2020-06-26 Emergency [facility] [id number] Univers 03:50:00 06:45:00 Martha Ramsey [id number] ity of [place] [id number] [facility] [phone] [facility] 084 Branch 2020-05-24 2020-05-24 [place], [facility] [id number] 06:40:47 10:54:00 Charanjit Ramsey [id number] [place] 4.2.7.2.686 [place] [id number] [facility] 2020-05-24 2020-05-24 [facility] [id number] [facility] 06:40:47 10:54:00 Charanjit Ramsey 350.1.13.10 [place] [phone] [address] 2020-03-29 2020-03-29 Letter Jamel Flores 1.2.840.114 [id number] 00:00:00 00:00:00 (Out) T [place] 350.1.13.10 [facility] 4.2.7.2.686 [id number] [facility] 2020-03-29 2020-03-29 Letter Jamel Flores 1.2.840.114 [id number] Univers 00:00:00 00:00:00 (Out) T Ashleigh 350.1.13.10 it y of [facility] 4.2.7.2.686 [place] [phone] [place] 690929 [place] 2020-03-26 2020-03-26 Transition Sharee George 1.2.840.114 [id number] 00:00:00 00:00:00 of Care Sherrell Grewal 350.1.13.10 [place] 4.2.7.2.686 [phone] [facility] 2020-03-26 2020-03-26 Transition Sharee George 1.2.840.114 [id number] Univers 00:00:00 00:00:00 of Care Sherrell Grewal 350.1.13.10 [place] [phone] [address] 2020-03-22 2020-03-23 Emergency AuroraalexanderSallie 1.2.840. 114 [id number] [facility] 18:02:47 21:55:00 Jamel Flores 350.1.13.10 ity of [facility] 4.2.7.2.686 [place] [phone] [facility] 089 [place] 2020-03-22 2020-03-23 Outpatient X JAMEL FLORES [facility] MCA 1026 [id number] Univers 18:02:47 21:55:00 ity [facility] 2020-03-21 2020-03-21 Emergency [facility] 1.2.840.114 [id number] Univers 15:02:08 17:16:00 Myles Sharon [place] 350.1.13.10 i ty of [place] 4.2.7.2.686 [facility] [phone] [place] 690924 [place] 2020-03-21 2020-03-21 Emergency X [facility] ERT [id number] Univers 15:02:08 17:16:00 MYLES ity [facility] 2020-03-13 2020-03-13 Outpatient Raju_P MMG MMG [id number] [place] 05:24:00 05:24:00 0428 [facility] 2020-03-08 2020-03-08 Transition Sharee Cool 1.2.840.114 [id number] Univers 00:00:00 00:00:00 of Care Prema Grewal 350.1.13.10 [place] [phone] [facility] [address] 2020-03-04 2020-03-07 [facility] Charanjit Heck [facility] 1.2.840.1 14 [id number] Univers 18:01:05 18:00:00 Encounter Sarah Adorno 350.1.13.10 ity of [place] 4.2.7.2.686 [facility] [phone] [facility] [address] 2020-03-04 2020-03-07 Inpatient X JULIO CESAR [facility] ZEFERINO [id number] Univers 18:01:05 18:00:00 SARAH carolyn [facility] 2020-03-03 2020-03-03 Transition Sharee Silva 1.2.840.114 [id number] Univers 00:00:00 00:00:00 of Care Isatu Grewal 350.1.13.10 [place] [phone] [address] 2020-02-29 2020-03-02 [facility] Bobo Urrutia [facility] 1.2.840.11 [id number] Univers 16:53:09 12:18:00 Encounter Lulu Harriston 350.1.13.10 [place] [phone] [address] 2020-02-29 2020-03-02 Inpatient X STEVEN [facility] ZEFERINO [id number] Univers 16:53:09 12:18:00 LULU leon [facility] 2020-02-15 2020-02-15 Outpatient R [facility]AVA [facility] [id number] Univers 11:30:00 11:30:00 [facility] 2020-02-15 2020-02-15 Telemedici [facility] 1.2.840.114 [id number] Univers 08:13:42 08:43:42 ne Visit Kathrin Ramsey 350.1.13.10 [place] [phone] Tn dical nal [address] 2020-01-18 2020-01-18 Transition Sharee Harvey 1.2.840.114 [id number] Univers 00:00:00 00:00:00 of Care Ana M Hahny 350.1.13.10 it [place] [phone] [address] 2020-01-15 2020-01-17 [facility] Charanjit Heck [facility] 1.2.840.1 14 [id number] Univers 22:33:37 16:58:00 Encounter Sarah Adorno 350.1.13.10 [place] [phone] [address] 2020-01-15 2020-01-17 Outpatient X JULIO CESAR [facility] Z[place]INO [id number] Univers 22:33:37 16:58:00 SARAH leon [facility] 2019-10-07 2019-10-07 [place] [id number] 10:48:00 10:48:00 [facility] 2019-10-05 2019-10-05 Outpatient [place] [id number] 16:06:00 16:06:00 [facility] ent [facility] 2019-07-27 2019-07-27 Refill Chava MSCESAR 1.2.840.114 [id number] Univers 00:00:00 00:00:00 Kathrin [place] 350.1.13.10 [place] [phone] Tn dical [facility] 220 [facility] 2019-07-12 2019-07-12 Outpatient Orianajuliano Kot [id number] 16:24:00 16:24:00 [facility] ent [facility] 2019-07-12 2019-07-12 Orders Doctor ROBERT 1.2.840.114 [id number] Univers 00:00:00 00:00:00 Only Unassigned, ASHLEIGH 350.1.13.10 ity of [place] [facility] 4.2.7.2.686 [place] [phone] [address] 2019-07-06 2019-07-06 Outpatient Ko Gastelumjulianot [id number] 14:00:00 14:00:00 [facility] ent [facility] Results Test Description Test Time Test Comments Results Result Comments Source SARS-CoV-2 (COVID-19) RNA [Presence] in Respiratory sp ecimen by 2021-12-20 07:04:48 ERI with probe detection Test Item Value Reference Range Interpretation Comme nts SARS-CoV-2 (COVID-19) RNA [Presence] in Respiratory Not detected No t-Detected specimen by ERI with probe detection (test code = 44101-2) 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 (test code = 42324-4) Whether the patient has symptoms related to condition of interest (test code = 26660-0) Patient was hospitalized because of this condition (test code = 20708-0) Whether the patient was admitted to intensive care unit (ICU) for condition of interest (test code = 19514-4) Whether patient resides in a congregate care setting (test code = 11234-0) POCT GLUCOSE (AUTOMATED)2021-11-02 22:57:12 Test Item Value Reference Range Interpretation Comments POCT GLU (test code = 3667535976) 224 mg/dL 70-110 H Lab Interpretation (test code = Abnormal 22289-8) [facility] LEAD ROUT[facility] [id number] 22:37:57 Test Item Value Reference Range Interpretation Comments Lab Interpretation (test code = Abnormal 27084-7) [facility]2021-11-02 17:43:02 Test Item Value Reference Range Interpretation Comments POCT GLU (test code = 1677408963) 264 mg/dL 70-110 H Lab Interpretation (test code = Abnormal 15437-6) [facility] [id number] 15:07:47 Test Item Value Reference Interpretation Comments Range TROPONIN I (test 0.064 ng/mL See_Comment H [Automated code = 0245395120) message] The system which generated this result [...] biotin. Lab Interpretation Abnormal (test code = 87749-4) [facility] [id number] 15:04:26 Test Item Value Reference Range Interpretation Comments NT-proBNP (test code 800 pg/mL See_Comment H [Autom ated = 2383562367) message] The system which generated this result transmitted reference range : <=450. The reference range was not used to interpret this result as normal/abnormal . ALYSSA (test code = ALYSSA) Biotin has been reported to cause a negative bias, interpret results relative to patient's use of biotin. Lab Interpretation Abnormal (test code = 68555-9) [facility])2021-11-02 13:36:38 Test Item Value Reference Range Interpretation Comments POCT GLU (test code = 2502666591) 185 mg/dL 70-110 H Lab Interpretation (test code = Abnormal 36115-8) [facility] METABOLIC PANEL (NA, K, CL, CO2, GLUCOSE, BUN, CREATININE, CA)2021-11-02 10:26:43 Test Item Value Reference Range Interpretation Comments NA (test code = 136 mmol/L 135-145 6556164945) K (test code = 4.0 mmol/L 3.5-5.0 3243812147) CL (test code = 99 mmol/L 98-108 8040009781) CO2 TOTAL (test code = 27 mmol/L 23-31 1146387611) AGAP (test code = 2-16 8330574772) BUN (test code = 30 mg/dL 7-23 H 7232618178) GLUCOSE (test code = 165 mg/dL 70-110 H 9675694813) CREATININE (test code = 1.42 mg/dL 0.60-1.25 H 8566343061) CALCIUM (test code = 9.5 mg/dL 8.6-10.6 7262805348) eGFR (test code = mL/min/1.73m2 2938017798) ALYSSA (test code = ALYSSA) Association of [...] tests). Lab Interpretation Abnormal (test code = 19788-2) [facility] WITH [id number] 10:01:58 Test Item Value Reference Range Interpretation Comments WBC (test code = See_Comment [Automated 8165-2) message] The sy stem which generated this [...] RDW-SD (test code = 39.8 fL 38.5-51.6 96327-9) RDW-CV (test code = 11.5 % 12.1-15.4 L 788-0) PLT (test code = See_Comment [Automated 497-3) message] The sy stem which generated this result transmitted reference range : 150 - 328 10*3/ ?L. The reference r corey was not used to interpret this result as normal/abnormal . MPV (test code = 10.5 fL 9.8-13.0 77921-9) NRBC/100 WBC (test See_Comment [Automat ed code = 2472507679) message] The system which generated this result transmitted reference range : 0.0 - 10.0 /100 WBCs. The refer ence range was not u sed to interpret th is result as normal/abnormal . NRBC x10^3 (test code <0.01 See_Comment [Auto mated = 0819472874) message] The s ystem which generated this result transmitted reference range : 10*3/?L. The reference range was not used to interpret this result as normal/abnormal . GRAN MAT (NEUT) % 59.3 % (test code = 770-8) IMM GRAN % (test code 0.30 % = 5539745227) LYMPH % (test code = 25.0 % 736-9) MONO % (test code = 10.7 % 5905-5) EOS % (test code = 4.1 % 713-8) BASO % (test code = 0.6 % 706-2) GRAN MAT x10^3(ANC) 4.19 10*3/uL 1.99-6.95 (test code = 7838624770) IMM GRAN x10^3 (test <0.03 0.00-0.06 code = 2151815841) LYMPH x10^3 (test code 1.77 10*3/uL 1.09-3.23 = 731-0) MONO x10^3 (test code 0.76 10*3/uL 0.36-1.02 = 742-7) EOS x10^3 (test code = 0.29 10*3/uL 0.06-0.53 711-2) BASO x10^3 (test code 0.04 10*3/uL 0.01-0.09 = 704-7) Lab Interpretation Abnormal (test code = 98579-9) [facility] GLUCOSE (AUTOMATED)2021-11-02 01:29:56 Test Item Value Reference Range Interpretation Comments POCT GLU (test code = 3037069350) 167 mg/dL 70-110 H Lab Interpretation (test code = Abnormal 34470-2) [facility] GLUCOSE (AUTOMATED)2021-11-01 17:40:19 Test Item Value Reference Range Interpretation Comments POCT GLU (test code = 4049897578) 193 mg/dL 70-110 H Lab Interpretation (test code = Abnormal 40315-8) [facility] GLUCOSE (AUTOMATED)2021-11-01 13:44:28 Test Item Value Reference Range Interpretation Comments POCT GLU (test code = 3803149838) 200 mg/dL 70-110 H Lab Interpretation (test code = Abnormal 53677-9) [facility] GLUCOSE (AUTOMATED)2021-11-01 01:38:43 Test Item Value Reference Range Interpretation Comments POCT GLU (test code = 2208650233) 177 mg/dL 70-110 H Lab Interpretation (test code = Abnormal 41709-2) [facility] GLUCOSE (AUTOMATED)2021-10-31 22:39:43 Test Item Value Reference Range Interpretation Comments POCT GLU (test code = 7614612301) 174 mg/dL 70-110 H Lab Interpretation (test code = Abnormal 73779-1) [facility] GLUCOSE (AUTOMATED)2021-10-31 17:40:22 Test Item Value Reference Range Interpretation Comments POCT GLU (test code = 0568112473) 224 mg/dL 70-110 H Lab Interpretation (test code = Abnormal 51173-4) [facility] [id number] 17:14:58 Test Item Value Reference Interpretation Comments Range TROPONIN I (test 0.080 ng/mL See_Comment H [Automated code = 2276151813) message] The system which generated this result [...] biotin. Lab Interpretation Abnormal (test code = 43432-9) [facility] [id number] 15:14:03 Test Item Value Reference Range Interpretation Comments NT-proBNP (test code 474 pg/mL See_Comment H [Autom ated = 4149973123) message] The system which generated this result transmitted reference range : <=450. The reference range was not used to interpret this result as normal/abnormal . ALYSSA (test code = ALYSSA) Biotin has been reported to cause a negative bias, interpret results relative to patient's use of biotin. Lab Interpretation Abnormal (test code = 51322-1) [facility] HospitalLIP[facility] PAN[facility] (69531)(TOTAL CHOLESTEROL, TRIGLYCERIDES, HDL)2021-10-31 15:05:19 Test Item Value Reference Range Interpretation Comments CHOL (test code = 101 mg/dL 120-200 L 6216319085) HDL (test code = 36 mg/dL >40 L 3177654383) HDLC RATIO (test code = See_Comment [Au tomated message] 8353454674) The system Soma generated this result transmit diamante reference range : <=5.0. The refe rence range was not u sed to interpret th is result as normal/abnormal . TRIG (test code = 143 mg/dL 30-170 7033742231) LDL CHOL (test code = 36 mg/dL See_Comment [Auto mated message] 24337-1) The system Soma generated this result transmit diamante reference range : <=160. The refe rence range was not u sed to interpret th is result as normal/abnormal . VLDL (test code = 29 mg/dL 5-60 1859636337) Lab Interpretation (test Abnormal code = 50209-0) [facility])2021-10-31 13:44:00 Test Item Value Reference Range Interpretation Comments POCT GLU (test code = 5943841892) 150 mg/dL 70-110 H Lab Interpretation (test code = Abnormal 55465-9) [facility] with [id number] 11:13:14 Test Item Value Reference Range Interpretation [...] RDW-SD (test code = 39.9 fL 38.5-51.6 76127-0) RDW-CV (test code = 11.8 % 12.1-15.4 L 788-0) PLT (test code = See_Comment [Automated 777-3) message] The sy stem which generated this result transmitted reference range : 150 - 328 10*3/ ?L. The reference r corey was not used to interpret this result as normal/abnormal . MPV (test code = 11.0 fL 9.8-13.0 57036-2) NRBC/100 WBC (test See_Comment [Automat ed code = 1278298105) message] The system which generated this result transmitted reference range : 0.0 - 10.0 /100 WBCs. The refer ence range was not u sed to interpret th is result as normal/abnormal . NRBC x10^3 (test code <0.01 See_Comment [Auto mated = 1558223881) message] The s ystem which generated this result transmitted reference range : 10*3/?L. The reference range was not used to interpret this result as normal/abnormal . GRAN MAT (NEUT) % 64.3 % (test code = 770-8) IMM GRAN % (test code 0.30 % = 9825460543) LYMPH % (test code = 21.7 % 736-9) MONO % (test code = 10.0 % 5905-5) EOS % (test code = 3.1 % 713-8) BASO % (test code = 0.6 % 706-2) GRAN MAT x10^3(ANC) 4.35 10*3/uL 1.99-6.95 (test code = 2174450384) IMM GRAN x10^3 (test <0.03 0.00-0.06 code = 5236307854) LYMPH x10^3 (test code 1.47 10*3/uL 1.09-3.23 = 731-0) MONO x10^3 (test code 0.68 10*3/uL 0.36-1.02 = 742-7) EOS x10^3 (test code = 0.21 10*3/uL 0.06-0.53 711-2) BASO x10^3 (test code 0.04 10*3/uL 0.01-0.09 = 704-7) Lab Interpretation Abnormal (test code = 62879-5) [facility] [id number] 11:09:53 Test Item Value Reference Interpretation Comments Range TROPONIN I (test 0.101 ng/mL See_Comment H [Automated code = 8951707433) message] The system which generated this result [...] biotin. Lab Interpretation Abnormal (test code = 30566-2) [facility] Metabolic Panel (NA, K, CL, CO2, GLUCOSE, BUN, CREATININE, CA)2021-10-31 10:59:31 Test Item Value Reference Range Interpretation Comments NA (test code = 139 mmol/L 135-145 3095269243) K (test code = 4.1 mmol/L 3.5-5.0 8338833143) CL (test code = 103 mmol/L 98-108 2143134116) CO2 TOTAL (test code = 28 mmol/L 23-31 5328427949) AGAP (test code = 2-16 8463676731) BUN (test code = 43 mg/dL 7-23 H 5573795148) GLUCOSE (test code = 165 mg/dL 70-110 H 4778987131) CREATININE (test code = 1.68 mg/dL 0.60-1.25 H 3303389910) CALCIUM (test code = 9.6 mg/dL 8.6-10.6 3208033830) eGFR (test code = mL/min/1.73m2 8220287210) ALYSSA (test code = ALYSSA) Association of [...] tests). Lab Interpretation Abnormal (test code = 73336-9) [facility] Hospital[facility]cosylated Hemoglobin (A1C)2021-10-31 09:13:40 Test Item Value Reference Range Interpretation Comments HGB A1C (test code = 6.8 % 4.0-5.7 H 4548-4) ALYSSA (test code = ALYSSA) Reference RangesNormal: <5.7%Prediabetes: 5.7 - 6.4%Diabetes: > 6.5% Lab Interpretation (test Abnormal code = 01191-8) [facility] [id number] 06:48:18 Test Item Value Reference Interpretation Comments Range TROPONIN I (test 0.082 ng/mL See_Comment H [Automated code = 7121825585) message] The system which generated this result [...] biotin. Lab Interpretation Abnormal (test code = 40384-5) [facility] [id number] 02:09:48 Test Item Value Reference Interpretation Comments Range TROPONIN I (test 0.067 ng/mL See_Comment H [Automated code = 9850341496) message] The system which generated this result [...] biotin. Lab Interpretation Abnormal (test code = 95419-3) [facility] [id number] 02:06:31 Test Item Value Reference Range Interpretation Comments NT-proBNP (test code 318 pg/mL See_Comment [Autom ated = 0982793112) message] The system which generated this result transmitted reference range : <=450. The reference range was not used to interpret this result as normal/abnormal . ALYSSA (test code = ALYSSA) Biotin has been reported to cause a negative bias, interpret results relative to patient's use of biotin. Lab Interpretation Normal (test code = 52187-2) [facility]. METABOLIC PANEL (81575)2021-10-31 01:58:28 Test Item Value Reference Range Interpretation Comments NA (test code = 137 mmol/L 135-145 4854106454) K (test code = 4.1 mmol/L 3.5-5.0 1590997544) CL (test code = 101 mmol/L 98-108 4697526776) CO2 TOTAL (test code = 26 mmol/L 23-31 8870457650) AGAP (test code = 2-16 6876785871) BUN (test code = 46 mg/dL 7-23 H 5033184765) GLUCOSE (test code = 213 mg/dL 70-110 H 6790256561) CREATININE (test code = 1.96 mg/dL 0.60-1.25 H 6131300055) TOTAL BILI (test code = 0.9 mg/dL 0.1-1.7 4227264863) CALCIUM (test code = 9.7 mg/dL 8.6-10.6 6367708497) T PROTEIN (test code = 7.0 g/dL 6.3-8.2 7847527192) ALBUMIN (test code = 4.3 g/dL 3.5-5.0 9745410738) ALK PHOS (test code = 58 U/L 34-122 5419392039) ALTv (test code = 20 U/L 5-50 2-6) AST(SGOT) (test code = 27 U/L 13-40 9286444287) eGFR (test code = mL/min/1.73m2 9515573234) ALYSSA (test code = ALYSSA) Association of [...] tests). Lab Interpretation Abnormal (test code = 00244-2) [facility] HospitalLIPASE, [id number] 01:57:48 Test Item Value Reference Range Interpretation Comments LIPASE (test code = 2753541651) 330 U/L 0-220 H Lab Interpretation (test code = Abnormal 32876-6) [facility] HospitalaPTT2021-12-16 01:55:04 Test Item Value Reference Range Interpretation Comments APTT Patient (test See_Comment [Automat ed code = 3173-2) message] The system which generated this result transmitted reference range : 23 - 38 Seconds . The reference range was not used to interpr et this result as normal/abnormal . ALYSSA (test code = ALYSSA) The [facility] patient population mean normal value for aPTT is 30 seconds. Lab Interpretation Normal (test code = 28116-7) [facility] HospitalPROTHROMBIN TIME / [id number] 01:53:08 Test Item Value Reference Range Interpretation [...] tions. Lab Interpretation (test Normal code = 09681-4) [facility] WITH [id number] 01:45:44 Test Item Value Reference Range Interpretation [...] RDW-SD (test code = 39.1 fL 38.5-51.6 45772-5) RDW-CV (test code = 11.6 % 12.1-15.4 L 788-0) PLT (test code = See_Comment [Automated 777-3) message] The sy stem which generated this result transmitted reference range : 150 - 328 10*3/ ?L. The reference r corey was not used to interpret this result as normal/abnormal . MPV (test code = 10.4 fL 9.8-13.0 58007-7) NRBC/100 WBC (test See_Comment [Automat ed code = 2043856367) message] The system which generated this result transmitted reference range : 0.0 - 10.0 /100 WBCs. The refer ence range was not u sed to interpret th is result as normal/abnormal . NRBC x10^3 (test code <0.01 See_Comment [Auto mated = 7029862296) message] The s ystem which generated this result transmitted reference range : 10*3/?L. The reference range was not used to interpret this result as normal/abnormal . GRAN MAT (NEUT) % 62.1 % (test code = 770-8) IMM GRAN % (test code 0.30 % = 2013153238) LYMPH % (test code = 23.4 % 736-9) MONO % (test code = 10.8 % 5905-5) EOS % (test code = 2.9 % 713-8) BASO % (test code = 0.5 % 706-2) GRAN MAT x10^3(ANC) 4.14 10*3/uL 1.99-6.95 (test code = 8250259388) IMM GRAN x10^3 (test <0.03 0.00-0.06 code = 4485896679) LYMPH x10^3 (test code 1.56 10*3/uL 1.09-3.23 = 731-0) MONO x10^3 (test code 0.72 10*3/uL 0.36-1.02 = 742-7) EOS x10^3 (test code = 0.19 10*3/uL 0.06-0.53 711-2) BASO x10^3 (test code 0.03 10*3/uL 0.01-0.09 = 704-7) Lab Interpretation Abnormal (test code = 02923-4) [facility]UR[facility]IS2021-06-10 21:15:48 Test Item Value Reference Range Interpretation Comments APPEARANCE (test code = Clear Clear 6515242120) COLOR (test code = Yellow Yellow 2014217467) PH (test code = 4.8-8.0 0722373598) SP GRAVITY (test code = 1.003-1.030 1422114804) GLU U QUAL (test code = 50 mg/dL Normal A 6273127508) BLOOD (test code = Negative Negative INTERFERE NCE FROM 5806410587) ASCORBIC ACID M AY CAUSE FALSE NEG ATIVE RESULT KETONES (test code = Negative Negative 0181302801) PROTEIN (test code = Negative Negative 2887-8) UROBILIN (test code = Normal Normal 7600121539) BILIRUBIN (test code = Negative Negative 0866877340) NITRITE (test code = Negative Negative 4442104765) LEUK JESS (test code = Negative Negative 9156881908) RBC/HPF (test code = See_Comment [Autom ated message] 3785623113) The system Soma generated this result transmitted ref erence range: 0 - 3 HP F. The reference range was not used to int erpret this result as normal/abnormal . WBC/HPF (test code = See_Comment [Autom ated message] 8790050734) The system Soma generated this result transmitted ref erence range: 0 - 5 HP F. The reference range was not used to int erpret this result as normal/abnormal . BACTERIA (test code = Negative Negative 6118787578) SQ EPITH (test code = <1 See_Comment [Auto mated message] 2682705493) The system Soma generated this result transmitted ref erence range: <=2 HPF. The reference range was not used to int erpret this result as normal/abnormal . HYAL CAST (test code = See_Comment [Aut omated message] 6534632513) The system Soma generated this result transmitted ref erence range: <=2 LPF. The reference range was not used to int erpret this result as normal/abnormal . Lab Interpretation (test Abnormal code = 67886-4) [facility] HospitalXR LUMBAR SPINE 2 [id number] 20:30:53 Impression: Postoperative changes. Degenerative changes. No [...] acute bony abnormality identified.End of Report.RL: 3901 [facility] HIPS 2 VW [id number] 20:24:52Impression: Postoperative changes. Degenerative changes. No acute [...] clinicalconcern MRI is available.End of Report.RL: 3901 [facility] (NA, K, CL, CO2, GLUCOSE, BUN, CREATININE, CA)2020-05-24 14:15:00 Test Item Value Reference Range Interpretation Comments NA (test code = 139 mmol/L 135-145 3941559113) K (test code = 4.1 mmol/L 3.5-5 7385128894) CL (test code = 104 mmol/L 98-108 4552120147) CO2 TOTAL (test code = 26 mmol/L 23-31 4595403087) AGAP (test code = 2-16 3253554499) BUN (test code = 22 mg/dL 7-23 5367243618) GLUCOSE (test code = 203 mg/dL 70-110 H 1653030515) CREATININE (test code = 1.40 mg/dL 0.6-1.25 H 9728278742) CALCIUM (test code = 9.1 mg/dL 8.6-10.6 3816959537) eGFR Calculation mL/min/1.73m2 (Non-) (test code = 7164270543) eGFR Calculation mL/min/1.73m2 () (test code = 7859489090) ALYSSA (test code = ALYSSA) Association of [...] tests). Lab Interpretation Abnormal (test code = 88437-5) [facility] (ALB, T.PRO, BILI T, BU/BC, ALT, AST, ALK PHOS)2020-05-24 13:54:00 Test Item Value Reference Range Interpretation Comments TOTAL BILI (test code = 9284255981) 0.9 mg/dL 0.1-1.1 BILI UNCON (test code = 2473080244) 1.0 mg/dL 0.1-1.1 BILI CONJ (test code = 8560912551) 0.0 mg/dL 0-0.3 T PROTEIN (test code = 1234941347) 7.0 g/dL 6.3-8.2 ALBUMIN (test code = 9468036621) 4.2 g/dL 3.5-5 ALK PHOS (test code = 6377059433) 49 U/L 34-122 ALTv (test code = 1742-6) 17 U/L 5-50 AST(SGOT) (test code = 9172657930) 25 U/L 13-40 Lab Interpretation (test code = Normal 25451-0) [facility] 13:32:00 Test Item Value Reference Range Interpretation Comments APTT Patient (test See_Comment [Automat ed code = 3173-2) message] The system which generated this result transmitted reference range : 23 - 38 Seconds . The reference range was not used to interpr et this result as normal/abnormal . ALYSSA (test code = ALYSSA) The [facility] patient population mean normal value for aPTT is 30 seconds. Lab Interpretation Normal (test code = 21604-4) [facility] HospitalProthrombin Time (PT) / [id number] 13:30:00 Test Item Value Reference Range Interpretation [...] tions. Lab Interpretation (test Normal code = 60604-0) [facility] HospitalCBC WITH [id number] 13:27:00 Test Item Value Reference Range Interpretation [...] RDW-SD (test code = 42.6 fL 38.5-51.6 10493-8) RDW-CV (test code = 12.3 % 12.1-15.4 788-0) PLT (test code = See_Comment [Automated 777-3) message] The sy stem which generated this result transmitted reference range : 150 - 328 10*3/ ?L. The reference r corey was not used to interpret this result as normal/abnormal . MPV (test code = 9.9 fL 9.8-13 08630-6) NRBC/100 WBC (test See_Comment [Automat ed code = 9960102998) message] The system which generated this result transmitted reference range : 0.0 - 10.0 /100 WBCs. The refer ence range was not u sed to interpret th is result as normal/abnormal . NRBC x10^3 (test code <0.01 See_Comment [Auto mated = 2156513839) message] The s ystem which generated this result transmitted reference range : 10*3/?L. The reference range was not used to interpret this result as normal/abnormal . GRAN MAT (NEUT) % 55.1 % (test code = 770-8) IMM GRAN % (test code 0.20 % = 1908839234) LYMPH % (test code = 28.8 % 736-9) MONO % (test code = 11.3 % 5905-5) EOS % (test code = 3.5 % 713-8) BASO % (test code = 1.1 % 706-2) GRAN MAT x10^3(ANC) 3.11 10*3/uL 1.99-6.95 (test code = 6644401421) IMM GRAN x10^3 (test <0.03 0-0.06 code = 2922839524) LYMPH x10^3 (test code 1.63 10*3/uL 1.09-3.23 = 731-0) MONO x10^3 (test code 0.64 10*3/uL 0.36-1.02 = 742-7) EOS x10^3 (test code = 0.20 10*3/uL 0.06-0.53 711-2) BASO x10^3 (test code 0.06 10*3/uL 0.01-0.09 = 704-7) Lab Interpretation Abnormal (test code = 94433-0) [facility] HospitalXR [facility]KLE 3+ VW [id number] 13:25:58HISTORY: ?Pain. FINDINGS: AP, lateral, oblique views [...] No acute fracture or dislocation in left ankle.[facility] GLUCOSE (AUTOMATED)2020-03-23 22:34:00 Test Item Value Reference Range Interpretation Comments POCT GLU (test code = 1648541321) 173 mg/dL 70-110 H Lab Interpretation (test code = Abnormal 06331-0) [facility] GLUCOSE (AUTOMATED)2020-03-23 22:34:00 Test Item Value Reference Range Interpretation Comments POCT GLU (test code = 2963049307) 173 mg/dL 70-110 H Lab Interpretation (test code = Abnormal 49118-8) [facility] GLUCOSE (AUTOMATED)2020-03-23 18:12:00 Test Item Value Reference Range Interpretation Comments POCT GLU (test code = 165 mg/dL 70-110 H Notifi ed Provider [id number]) Lab Interpretation (test Abnormal code = 18181-2) [facility] GLUCOSE (AUTOMATED)2020-03-23 18:12:00 Test Item Value Reference Range Interpretation Comments POCT GLU (test code = 165 mg/dL 70-110 H Notifi ed Provider [id number]) Lab Interpretation (test Abnormal code = 92458-6) [facility] GLUCOSE (AUTOMATED)2020-03-23 15:04:00 Test Item Value Reference Range Interpretation Comments POCT GLU (test code = 114 mg/dL 70-110 H Notifi ed Provider [id number]) Lab Interpretation (test Abnormal code = 57047-4) [facility] GLUCOSE (AUTOMATED)2020-03-23 15:04:00 Test Item Value Reference Range Interpretation Comments POCT GLU (test code = 114 mg/dL 70-110 H Notifi ed Provider [id number]) Lab Interpretation (test Abnormal code = 69107-7) [facility] HospitalFERRITIN [id number] 13:23:00 Test Item Value Reference Range Interpretation Comments FERRITIN (test code = 139.0 ng/mL 18-464 2785833980) ALYSSA (test code = ALYSSA) Biotin has been reported to cause a negative bias, interpret results relative to patient's use of biotin. Lab Interpretation (test Normal code = 97137-0) [facility] HospitalFERRITIN [id number] 13:23:00 Test Item Value Reference Range Interpretation Comments FERRITIN (test code = 139.0 ng/mL 18-464 1154544891) ALYSSA (test code = ALYSSA) Biotin has been reported to cause a negative bias, interpret results relative to patient's use of biotin. Lab Interpretation (test Normal code = 49932-3) [facility] [id number] 12:53:00 Test Item Value Reference Range Interpretation Comments IRON (test code = 5937231419) 87 ug/dL 50-160 TIBC (test code = 6388634527) 385 ug/dL 250-410 % FE SAT (test code = 9237013223) 23 % 20-50 Lab Interpretation (test code = Normal 70882-4) [facility] [id number] 12:53:00 Test Item Value Reference Range Interpretation Comments IRON (test code = 4924247122) 87 ug/dL 50-160 TIBC (test code = 4580398132) 385 ug/dL 250-410 % FE SAT (test code = 8818856096) 23 % 20-50 Lab Interpretation (test code = Normal 25610-8) [facility] Test Item Value Reference Range Interpretation Comments APTT Patient (test code See_Comment [Au tomated message] = 3173-2) The system Soma generated this result transmitted ref erence range: 26 - 36 Seconds. The reference range was not used to int erpret this result as normal/abnormal . Lab Interpretation (test Abnormal code = 20118-9) [facility] 12:07:00 Test Item Value Reference Range Interpretation Comments APTT Patient (test code See_Comment [Au tomated message] = 3173-2) The system Soma generated this result transmitted ref erence range: 26 - 36 Seconds. The reference range was not used to int erpret this result as normal/abnormal . Lab Interpretation (test Abnormal code = 07395-4) [facility] [id number] 11:57:00 Test Item Value Reference Range Interpretation Comments TROPONIN I (test 0.046 ng/mL See_Comment H [Automated code = 2740010183) message] The system which generated this result [...] ? Lab Interpretation Abnormal (test code = 57429-5) [facility] HospitalTROPONIN [id number] 11:57:00 Test Item Value Reference Range Interpretation Comments TROPONIN I (test 0.046 ng/mL See_Comment H [Automated code = 4740721534) message] The system which generated this result [...] ? Lab Interpretation Abnormal (test code = 63751-2) [facility] HospitalBASI [facility]OLIC PANEL (NA, K, CL, CO2, GLUCOSE, BUN, CREATININE, CA)2020-03-23 11:52:00 Test Item Value Reference Range Interpretation Comments NA (test code = 137 mmol/L 135-145 9368746857) K (test code = 4.1 mmol/L 3.5-5 3808499674) CL (test code = 102 mmol/L 98-108 4474657382) CO2 TOTAL (test code = 26 mmol/L 23-31 2272807727) AGAP (test code = 2-16 9134963167) BUN (test code = 18 mg/dL 7-23 4383150724) GLUCOSE (test code = 119 mg/dL 70-110 H 1327770159) CREATININE (test code = 1.14 mg/dL 0.6-1.25 5255521814) CALCIUM (test code = 9.1 mg/dL 8.6-10.6 2394876702) eGFR Calculation mL/min/1.73m2 (Non-) (test code = 6313616351) eGFR Calculation mL/min/1.73m2 () (test code = 1570444516) ALYSSA (test code = ALYSSA) Association of [...] tests). Lab Interpretation Abnormal (test code = 94922-6) [facility]MAGN[facility]IUM2020-05-08 11:52:00 Test Item Value Reference Range Interpretation Comments MAGNESIUM (test code = 7912883215) 2.2 mg/dL 1.7-2.4 Lab Interpretation (test code = Normal 11750-4) [facility] (NA, K, CL, CO2, GLUCOSE, BUN, CREATININE, CA)2020-03-23 11:52:00 Test Item Value Reference Range Interpretation Comments NA (test code = 137 mmol/L 135-145 3627213067) K (test code = 4.1 mmol/L 3.5-5 0849318890) CL (test code = 102 mmol/L 98-108 3920929778) CO2 TOTAL (test code = 26 mmol/L 23-31 0300324129) AGAP (test code = 2-16 8686320905) BUN (test code = 18 mg/dL 7-23 1981371287) GLUCOSE (test code = 119 mg/dL 70-110 H 0274661841) CREATININE (test code = 1.14 mg/dL 0.6-1.25 9938718819) CALCIUM (test code = 9.1 mg/dL 8.6-10.6 1075762377) eGFR Calculation mL/min/1.73m2 (Non-) (test code = 6306239385) eGFR Calculation mL/min/1.73m2 () (test code = 8988568229) ALYSSA (test code = ALYSSA) Association of [...] tests). Lab Interpretation Abnormal (test code = 53837-6) [facility]2020-05-08 11:52:00 Test Item Value Reference Range Interpretation Comments MAGNESIUM (test code = 0918873434) 2.2 mg/dL 1.7-2.4 Lab Interpretation (test code = Normal 20735-2) [facility] HospitalProthrombin Time (PT) / [id number] 11:36:00 Test Item Value Reference Range Interpretation Comments PROTIME PATIENT (test See_Comment [Auto mated message] code = 5964-2) The system Hubs1 generated this result transmitted ref erence range: 10.1 - 1 2.6 Seconds. The re ference range was not u sed to interpret this result as normal/abnor mal. INR (test code = 6301-6) Nor mal INR <1.1; Warfarin Therap eutic range 2.0 to 3. 0 or 2.5 to 3.5, dep ending upon the indica tions. Lab Interpretation (test Normal code = 87014-5) [facility] HospitalProthrombin Time (PT) / [id number] 11:36:00 Test Item Value Reference Range Interpretation Comments PROTIME PATIENT (test See_Comment [Auto mated message] code = 5964-2) The system Hubs1 generated this result transmitted ref erence range: 10.1 - 1 2.6 Seconds. The re ference range was not u sed to interpret this result as normal/abnor mal. INR (test code = 6301-6) Nor mal INR <1.1; Warfarin Therap eutic range 2.0 to 3. 0 or 2.5 to 3.5, dep ending upon the indica tions. Lab Interpretation (test Normal code = 79068-4) [facility] [id number] 06:38:00 Test Item Value Reference Range Interpretation Comments TROPONIN I (test 0.045 ng/mL See_Comment H [Automated code = 8627284771) message] The system which generated this result [...] ? Lab Interpretation Abnormal (test code = 87818-5) [facility] [id number] 06:38:00 Test Item Value Reference Range Interpretation Comments TROPONIN I (test 0.045 ng/mL See_Comment H [Automated code = 2159008384) message] The system which generated this result [...] ? Lab Interpretation Abnormal (test code = 29517-0) [facility] (NA, K, CL, CO2, GLUCOSE, BUN, CREATININE, CA)2020-03-23 06:29:00 Test Item Value Reference Range Interpretation Comments NA (test code = 137 mmol/L 135-145 6797210655) K (test code = 3.6 mmol/L 3.5-5 8968034859) CL (test code = 101 mmol/L 98-108 9900543400) CO2 TOTAL (test code = 27 mmol/L 23-31 3285873225) AGAP (test code = 2-16 6874131345) BUN (test code = 19 mg/dL 7-23 9478266923) GLUCOSE (test code = 153 mg/dL 70-110 H 2421985269) CREATININE (test code = 1.22 mg/dL 0.6-1.25 6790276038) CALCIUM (test code = 8.9 mg/dL 8.6-10.6 8621398975) eGFR Calculation mL/min/1.73m2 (Non-) (test code = 1246047740) eGFR Calculation mL/min/1.73m2 () (test code = 4399585932) ALYSSA (test code = ALYSSA) Association of [...] tests). Lab Interpretation Abnormal (test code = 62969-1) [facility]2020-05-08 06:29:00 Test Item Value Reference Range Interpretation Comments MAGNESIUM (test code = 2231717493) 1.7 mg/dL 1.7-2.4 Lab Interpretation (test code = Normal 42849-4) [facility] HospitalLIPID PANEL (70367)(TOTAL CHOLESTEROL, TRIGLYCERIDES, HDL)2020-03-23 06:29:00 Test Item Value Reference Range Interpretation Comments CHOL (test code = 106 mg/dL 120-200 L 3560003592) HDL (test code = 46 mg/dL >40 8915701758) HDLC RATIO (test code = See_Comment [Au tomated message] 9512527272) The system Soma generated this result transmit diamante reference range : <=5.0. The refe rence range was not u sed to interpret th is result as normal/abnormal . TRIG (test code = 74 mg/dL 30-170 2931836354) LDL CHOL (test code = 45 mg/dL See_Comment [Auto mated message] 66089-3) The system Soma generated this result transmit diamante reference range : <=160. The refe rence range was not u sed to interpret th is result as normal/abnormal . VLDL (test code = 15 mg/dL 5-60 9189071815) Lab Interpretation (test Abnormal code = 24983-9) [facility] METABOLIC PANEL (NA, K, CL, CO2, GLUCOSE, BUN, CREATININE, CA)2020-03-23 06:29:00 Test Item Value Reference Range Interpretation Comments NA (test code = 137 mmol/L 135-145 3220654265) K (test code = 3.6 mmol/L 3.5-5 4740361309) CL (test code = 101 mmol/L 98-108 6111765353) CO2 TOTAL (test code = 27 mmol/L 23-31 5861503305) AGAP (test code = 2-16 4592305458) BUN (test code = 19 mg/dL 7-23 0103086711) GLUCOSE (test code = 153 mg/dL 70-110 H 9818849572) CREATININE (test code = 1.22 mg/dL 0.6-1.25 3314863490) CALCIUM (test code = 8.9 mg/dL 8.6-10.6 1907703954) eGFR Calculation mL/min/1.73m2 (Non-) (test code = 0853621674) eGFR Calculation mL/min/1.73m2 () (test code = 0405521496) ALYSSA (test code = ALYSSA) Association of [...] tests). Lab Interpretation Abnormal (test code = 74284-5) [facility]2020-[facility]-08 06:29:00 Test Item Value Reference Range Interpretation Comments MAGNESIUM (test code = 2861248744) 1.7 mg/dL 1.7-2.4 Lab Interpretation (test code = Normal 60438-6) [facility] HospitalLIPID PANEL (54905)(TOTAL CHOLESTEROL, TRIGLYCERIDES, HDL)2020-03-23 06:29:00 Test Item Value Reference Range Interpretation Comments CHOL (test code = 106 mg/dL 120-200 L 4099946471) HDL (test code = 46 mg/dL >40 4055739064) HDLC RATIO (test code = See_Comment [Au tomated message] 8802268714) The system Soma generated this result transmit diamante reference range : <=5.0. The refe rence range was not u sed to interpret th is result as normal/abnormal . TRIG (test code = 74 mg/dL 30-170 1593927058) LDL CHOL (test code = 45 mg/dL See_Comment [Auto mated message] 88958-9) The system Soma generated this result transmit diamante reference range : <=160. The refe rence range was not u sed to interpret th is result as normal/abnormal . VLDL (test code = 15 mg/dL 5-60 2118351946) Lab Interpretation (test Abnormal code = 20954-6) [facility] 03:18:00 Test Item Value Reference Range Interpretation Comments APTT Patient (test code = See_Comment [ Automated message] 3173-2) The system whic h generated this result transmitted ref erence range: 26 - 36 Seconds. The re ference range was not u sed to interpret this result as normal/abnor mal. Lab Interpretation (test Normal code = 39795-7) [facility] 03:18:00 Test Item Value Reference Range Interpretation Comments APTT Patient (test code = See_Comment [ Automated message] 3173-2) The system Soma generated this result transmitted ref erence range: 26 - 36 Seconds. The re ference range was not u sed to interpret this result as normal/abnor mal. Lab Interpretation (test Normal code = 46376-8) [facility] HospitalPROTHROMBIN TIME / [id number] 03:07:00 Test Item Value Reference Range Interpretation Comments PROTIME PATIENT (test See_Comment [Auto mated message] code = 5964-2) The system Hubs1 generated this result transmitted ref erence range: 10.1 - 1 2.6 Seconds. The re ference range was not u sed to interpret this result as normal/abnor mal. INR (test code = 6301-6) Nor mal INR <1.1; Warfarin Therap eutic range 2.0 to 3. 0 or 2.5 to 3.5, dep ending upon the indica tions. Lab Interpretation (test Normal code = 86075-6) [facility] HospitalPROTHROMBIN TIME / [id number] 03:07:00 Test Item Value Reference Range Interpretation Comments PROTIME PATIENT (test See_Comment [Auto mated message] code = 5964-2) The system Hubs1 generated this result transmitted ref erence range: 10.1 - 1 2.6 Seconds. The re ference range was not u sed to interpret this result as normal/abnor mal. INR (test code = 6301-6) Nor mal INR <1.1; Warfarin Therap eutic range 2.0 to 3. 0 or 2.5 to 3.5, dep ending upon the indica tions. Lab Interpretation (test Normal code = 03594-5) [facility] 2 [id number] 02:23:32 No acute cardiopulmonary process. Preliminary Report [...] reviewed this study and agree with the abovereport.[facility] 2 [id number] 02:23:32 No acute cardiopulmonary process. Preliminary Report [...] reviewed this study and agree with the abovereport.[facility] HospitalCORONAVIRUS COVID-19 [id number] 01:23:00 Test Item Value Reference Range Interpretation Comments SARS-CoV-2 (test code = Not Detected Not Detected 12820-4) ALYSSA (test code = ALYSSA) ID NOW COVID-19 Assay is an isothermal nucleic acid amplification test intended for the qualitative detection of nucleic acid from SARS-CoV-2 viral RNA in nasopharyngeal (TEAM LEAD) specimens. It is used under Emergency Use [...] indicated. Lab Interpretation Normal (test code = 22807-2) [facility] HospitalCORON[facility]IRUS COVID-19 [id number] 01:23:00 Test Item Value Reference Range Interpretation Comments SARS-CoV-2 (test code = Not Detected Not Detected 06431-3) ALYSSA (test code = ALYSSA) ID NOW COVID-19 Assay is an isothermal nucleic acid amplification test intended for the qualitative detection of nucleic acid from SARS-CoV-2 viral RNA in nasopharyngeal (TEAM LEAD) specimens. It is used under Emergency Use [...] indicated. Lab Interpretation Normal (test code = 27116-0) [facility] HospitalN-TERMINAL [id number] 00:12:00 Test Item Value Reference Range Interpretation Comments NT-proBNP (test code 585 pg/mL See_Comment H [Autom ated = 3892622548) message] The system which generated this result transmitted reference range : <=450. The reference range was not used to interpret this result as normal/abnormal . ALYSSA (test code = ALYSSA) Biotin has been reported to cause a negative bias, interpret results relative to patient's use of biotin. Lab Interpretation Abnormal (test code = 23081-9) [facility] HospitalTROPONIN [id number] 00:12:00 Test Item Value Reference Range Interpretation Comments TROPONIN I (test 0.030 ng/mL See_Comment [Automated code = 7674486658) message] The system which generated this result [...] ? Lab Interpretation Normal (test code = 42017-1) [facility] HospitalN-TERMINAL [id number] 00:12:00 Test Item Value Reference Range Interpretation Comments NT-proBNP (test code 585 pg/mL See_Comment H [Autom ated = 9992062499) message] The system which generated this result transmitted reference range : <=450. The reference range was not used to interpret this result as normal/abnormal . ALYSSA (test code = ALYSSA) Biotin has been reported to cause a negative bias, interpret results relative to patient's use of biotin. Lab Interpretation Abnormal (test code = 14834-9) [facility] HospitalKATEN [id number] 00:12:00 Test Item Value Reference Range Interpretation Comments TROPONIN I (test 0.030 ng/mL See_Comment [Automated code = 3493396237) message] The system which generated this result [...] ? Lab Interpretation Normal (test code = 38940-4) [facility] HospitalCOM. METABOLIC PANEL (52073)2020-03-23 00:03:00 Test Item Value Reference Range Interpretation Comments NA (test code = 138 mmol/L 135-145 0643457317) K (test code = 4.1 mmol/L 3.5-5 2224064104) CL (test code = 103 mmol/L 98-108 0961664796) CO2 TOTAL (test code = 26 mmol/L 23-31 0655171835) AGAP (test code = 2-16 8911725791) BUN (test code = 18 mg/dL 7-23 0726430750) GLUCOSE (test code = 157 mg/dL 70-110 H 8195090899) CREATININE (test code = 1.19 mg/dL 0.6-1.25 9287500692) TOTAL BILI (test code = 1.1 mg/dL 0.1-1.1 9366854229) CALCIUM (test code = 9.2 mg/dL 8.6-10.6 1882451595) T PROTEIN (test code = 6.8 g/dL 6.3-8.2 1347761163) ALBUMIN (test code = 4.0 g/dL 3.5-5 2569615211) ALK PHOS (test code = 51 U/L 34-122 4333217360) ALTv (test code = 16 U/L 5-50 1742-6) AST(SGOT) (test code = 23 U/L 13-40 4018278940) eGFR Calculation mL/min/1.73m2 (Non-) (test code = 7815763312) eGFR Calculation mL/min/1.73m2 () (test code = 8518199770) ALYSSA (test code = ALYSSA) Association of [...] tests). Lab Interpretation Abnormal (test code = 05744-0) [facility]. METABOLIC PANEL (78398)2020-03-23 00:03:00 Test Item Value Reference Range Interpretation Comments NA (test code = 138 mmol/L 135-145 6268603516) K (test code = 4.1 mmol/L 3.5-5 1592519764) CL (test code = 103 mmol/L 98-108 7111019269) CO2 TOTAL (test code = 26 mmol/L 23-31 1233593368) AGAP (test code = 2-16 2740781458) BUN (test code = 18 mg/dL 7-23 4166891012) GLUCOSE (test code = 157 mg/dL 70-110 H 3023043657) CREATININE (test code = 1.19 mg/dL 0.6-1.25 7049647904) TOTAL BILI (test code = 1.1 mg/dL 0.1-1.3 2380053877) CALCIUM (test code = 9.2 mg/dL 8.6-10.6 7550286181) T PROTEIN (test code = 6.8 g/dL 6.3-8.2 9167918953) ALBUMIN (test code = 4.0 g/dL 3.5-5 9191479183) ALK PHOS (test code = 51 U/L 34-122 6313742308) ALTv (test code = 16 U/L 5-50 1742-6) AST(SGOT) (test code = 23 U/L 13-40 2115471334) eGFR Calculation mL/min/1.73m2 (Non-) (test code = 3576502990) eGFR Calculation mL/min/1.73m2 () (test code = 2455040788) ALYSSA (test code = ALYSSA) Association of [...] tests). Lab Interpretation Abnormal (test code = 62759-3) [facility] WITH [id number] 23:57:00 Test Item Value Reference Range Interpretation Comments WBC (test code = See_Comment [Automated 1690-2) message] The sy stem which generated this [...] RDW-SD (test code = 49.6 fL 38.5-51.6 07671-2) RDW-CV (test code = 14.6 % 12.1-15.4 788-0) PLT (test code = See_Comment L [Automated 777-3) message] The sy stem which generated this result transmitted reference range : 150 - 328 10*3/ ?L. The reference r corey was not used to interpret this result as normal/abnormal . MPV (test code = 9.9 fL 9.8-13 39236-5) NRBC/100 WBC (test See_Comment [Automat ed code = 6803196949) message] The system which generated this result transmitted reference range : 0.0 - 10.0 /100 WBCs. The refer ence range was not u sed to interpret th is result as normal/abnormal . NRBC x10^3 (test code <0.01 See_Comment [Auto mated = 0158993859) message] The s ystem which generated this result transmitted reference range : 10*3/?L. The reference range was not used to interpret this result as normal/abnormal . GRAN MAT (NEUT) % 55.3 % (test code = 770-8) IMM GRAN % (test code 0.20 % = 6035780127) LYMPH % (test code = 28.3 % 736-9) MONO % (test code = 12.6 % 5905-5) EOS % (test code = 3.1 % 713-8) BASO % (test code = 0.5 % 706-2) GRAN MAT x10^3(ANC) 3.20 10*3/uL 1.99-6.95 (test code = 1908844146) IMM GRAN x10^3 (test <0.03 0-0.06 code = 1138646378) LYMPH x10^3 (test code 1.64 10*3/uL 1.09-3.23 = 731-0) MONO x10^3 (test code 0.73 10*3/uL 0.36-1.02 = 742-7) EOS x10^3 (test code = 0.18 10*3/uL 0.06-0.53 711-2) BASO x10^3 (test code 0.03 10*3/uL 0.01-0.09 = 704-7) Lab Interpretation Abnormal (test code = 71087-5) [facility] WITH [id number] 23:57:00 Test Item Value Reference Range Interpretation [...] RDW-SD (test code = 49.6 fL 38.5-51.6 98300-4) RDW-CV (test code = 14.6 % 12.1-15.4 788-0) PLT (test code = See_Comment L [Automated 777-3) message] The sy stem which generated this result transmitted reference range : 150 - 328 10*3/ ?L. The reference r corey was not used to interpret this result as normal/abnormal . MPV (test code = 9.9 fL 9.8-13 70869-3) NRBC/100 WBC (test See_Comment [Automat ed code = 2128172064) message] The system which generated this result transmitted reference range : 0.0 - 10.0 /100 WBCs. The refer ence range was not u sed to interpret th is result as normal/abnormal . NRBC x10^3 (test code <0.01 See_Comment [Auto mated = 4848788699) message] The s ystem which generated this result transmitted reference range : 10*3/?L. The reference range was not used to interpret this result as normal/abnormal . GRAN MAT (NEUT) % 55.3 % (test code = 770-8) IMM GRAN % (test code 0.20 % = 3510525654) LYMPH % (test code = 28.3 % 736-9) MONO % (test code = 12.6 % 5905-5) EOS % (test code = 3.1 % 713-8) BASO % (test code = 0.5 % 706-2) GRAN MAT x10^3(ANC) 3.20 10*3/uL 1.99-6.95 (test code = 1653833257) IMM GRAN x10^3 (test <0.03 0-0.06 code = 1583713183) LYMPH x10^3 (test code 1.64 10*3/uL 1.09-3.23 = 731-0) MONO x10^3 (test code 0.73 10*3/uL 0.36-1.02 = 742-7) EOS x10^3 (test code = 0.18 10*3/uL 0.06-0.53 711-2) BASO x10^3 (test code 0.03 10*3/uL 0.01-0.09 = 704-7) Lab Interpretation Abnormal (test code = 11352-6) [facility] COVID-19 [id number] 21:48:00 Test Item Value Reference Range Interpretation Comments SARS-CoV-2 (test code = Not Detected Not Detected 78929-2) ALYSSA (test code = ALYSSA) ID NOW COVID-19 Assay is an isothermal nucleic acid amplification test intended for the qualitative detection of nucleic acid from SARS-CoV-2 viral RNA in nasopharyngeal (TEAM LEAD) specimens. It is used under Emergency Use [...] indicated. Lab Interpretation Normal (test code = 38486-8) [facility] HospitalTroponin [id number] 21:44:00 Test Item Value Reference Range Interpretation Comments TROPONIN I (test 0.027 ng/mL See_Comment [Automated code = 6553394721) message] The system which generated this result [...] ? Lab Interpretation Normal (test code = 25755-4) [facility] HospitalProthrombin Time (PT) / [id number] 21:41:00 Test Item Value Reference Range Interpretation Comments PROTIME PATIENT (test See_Comment [Auto mated message] code = 5964-2) The system [employer] ich generated this result transmitted ref erence range: 12.0 - 1 4.7 Seconds. The re ference range was not u sed to interpret this result as normal/abnor mal. INR (test code = 6301-6) Nor mal INR <1.1; Warfarin Therap eutic range 2.0 to 3. 0 or 2.5 to 3.5, dep ending upon the indica tions. Lab Interpretation (test Normal code = 16750-6) [facility] HospitalN-TERMINAL [id number] 21:39:00 Test Item Value Reference Range Interpretation Comments NT-proBNP (test code 663 pg/mL See_Comment H [Autom ated = 7834747039) message] The system which generated this result transmitted reference range : <=450. The reference range was not used to interpret this result as normal/abnormal . ALYSSA (test code = ALYSSA) Biotin has been reported to cause a negative bias, interpret results relative to patient's use of biotin. Lab Interpretation Abnormal (test code = 81666-2) [facility] HospitalCOMP. METABOLIC PANEL (19275)2020-03-21 21:37:00 Test Item Value Reference Range Interpretation Comments NA (test code = 139 mmol/L 135-145 4472559782) K (test code = 4.1 mmol/L 3.5-5 6042420148) CL (test code = 102 mmol/L 98-108 7014847004) CO2 TOTAL (test code = 29 mmol/L 23-31 6884371801) AGAP (test code = 2-16 3723085030) BUN (test code = 18 mg/dL 7-23 2516366031) GLUCOSE (test code = 277 mg/dL 70-110 H 0867340301) CREATININE (test code = 1.23 mg/dL 0.6-1.25 5599949522) TOTAL BILI (test code = 1.3 mg/dL 0.1-1.1 H 2792497971) CALCIUM (test code = 9.8 mg/dL 8.6-10.6 9421607269) T PROTEIN (test code = 7.0 g/dL 6.3-8.2 1311305696) ALBUMIN (test code = 4.2 g/dL 3.5-5 1570340557) ALK PHOS (test code = 50 U/L 34-122 5222862904) ALTv (test code = 15 U/L 5-50 1742-6) AST(SGOT) (test code = 22 U/L 13-40 5039527626) eGFR Calculation mL/min/1.73m2 (Non-) (test code = 7924400363) eGFR Calculation mL/min/1.73m2 () (test code = 2989311027) ALYSSA (test code = ALYSSA) Association of [...] tests). Lab Interpretation Abnormal (test code = 79406-3) [facility] HospitalLipase [id number] 21:37:00 Test Item Value Reference Range Interpretation Comments LIPASE (test code = 1940203672) 161 U/L 0-220 Lab Interpretation (test code = Normal 05881-6) [facility] HospitalChes 1 [id number] 20:46:31HISTORY: Chest pain. TECHNIQUE: Portable AP view of the chest is obtained. Comparison made with03/04/2020 study. FINDINGS: No acute pneumonia. No pneumothorax or pleural effusion orpulmonary congestion detected. Mild cardiomegaly and intrathecal electrodesin lower thoracic spinal canal noted. Mild thoracolumbar scoliosis noted. CONCLUSIONS: Mild cardiomegaly.[facility], Radiant Results Inft User - 03/21/2020 3:47 PM CDTHISTORY: Chest pain.TECHNIQUE: Portable AP view of the chest is obtained. Comparison made with03/04/2020 study.FINDINGS: No acute pneumonia. No pneumothorax or pleural effusion orpulmonary congestion detected. Mild cardiomegaly and intrathecal electrodesin lower thoracic spinal canal noted. Mild thoracolumbar scoliosis noted.CONCLUSIONS: Mild cardiomegaly. [facility] HospitalLawiic Acid Whole [id number] 20:43:00 Test Item Value Reference Range Interpretation Comments LACTIC ACID (test code = 1.91 mmol/L 0.3-2.6 3296319882) [facility] GLUCOSE (AUTOMATED)2020-03-07 20:58:00 Test Item Value Reference Range Interpretation Comments POCT GLU (test code = 5852288467) 216 mg/dL 70-110 H Lab Interpretation (test code = Abnormal 32821-9) [facility] GLUCOSE (AUTOMATED)2020-03-07 16:00:00 Test Item Value Reference Range Interpretation Comments POCT GLU (test code = 9083903649) 168 mg/dL 70-110 H Lab Interpretation (test code = Abnormal 50811-4) [facility] GLUCOSE (AUTOMATED)2020-03-07 13:07:00 Test Item Value Reference Range Interpretation Comments POCT GLU (test code = 4726049060) 148 mg/dL 70-110 H Lab Interpretation (test code = Abnormal 89919-4) [facility] HospitalTROPONIN [id number] 11:27:00 Test Item Value Reference Range Interpretation Comments TROPONIN I (test 0.051 ng/mL See_Comment H [Automated code = 2259649354) message] The system which generated this result [...] ? Lab Interpretation Abnormal (test code = 76142-2) [facility] HospitalN-TERMINAL [id number] 11:24:00 Test Item Value Reference Range Interpretation Comments NT-proBNP (test code 336 pg/mL See_Comment [Autom ated = 9430364581) message] The system which generated this result transmitted reference range : <=450. The reference range was not used to interpret this result as normal/abnormal . ALYSSA (test code = ALYSSA) Biotin has been reported to cause a negative bias, interpret results relative to patient's use of biotin. Lab Interpretation Normal (test code = 72710-2) [facility] HospitalBasi Metabolic Panel (NA, K, CL, CO2, GLUCOSE, BUN, CREATININE, CA)2020-03-07 11:14:00 Test Item Value Reference Range Interpretation Comments NA (test code = 138 mmol/L 135-145 3512410012) K (test code = 3.8 mmol/L 3.5-5 0431557026) CL (test code = 97 mmol/L 98-108 L 3401510080) CO2 TOTAL (test code = 30 mmol/L 23-31 9889117097) AGAP (test code = 2-16 1846835864) BUN (test code = 36 mg/dL 7-23 H 3615194732) GLUCOSE (test code = 140 mg/dL 70-110 H 5073640435) CREATININE (test code = 1.50 mg/dL 0.6-1.25 H 7634103583) CALCIUM (test code = 10.0 mg/dL 8.6-10.6 9332483006) eGFR Calculation mL/min/1.73m2 (Non-) (test code = 1208287717) eGFR Calculation mL/min/1.73m2 () (test code = 6825032592) ALYSSA (test code = ALYSSA) Association of [...] tests). Lab Interpretation Abnormal (test code = 62657-9) [facility] HospitalURIC [id number] 11:14:00 Test Item Value Reference Range Interpretation Comments URIC ACID (test code = 1948257521) 5.4 mg/dL 3.6-8 Lab Interpretation (test code = Normal 54372-4) [facility] HospitalCB WITH [id number] 10:53:00 Test Item Value Reference Range Interpretation [...] RDW-SD (test code = 45.1 fL 38.5-51.6 32949-6) RDW-CV (test code = 14.2 % 12.1-15.4 788-0) PLT (test code = See_Comment [Automated 777-3) message] The sy stem which generated this result transmitted reference range : 150 - 328 10*3/ ?L. The reference r corey was not used to interpret this result as normal/abnormal . MPV (test code = 9.8 fL 9.8-13 22374-9) NRBC/100 WBC (test See_Comment [Automat ed code = 9422290303) message] The system which generated this result transmitted reference range : 0.0 - 10.0 /100 WBCs. The refer ence range was not u sed to interpret th is result as normal/abnormal . NRBC x10^3 (test code <0.01 See_Comment [Auto mated = 9476776474) message] The s ystem which generated this result transmitted reference range : 10*3/?L. The reference range was not used to interpret this result as normal/abnormal . GRAN MAT (NEUT) % 51.0 % (test code = 770-8) IMM GRAN % (test code 0.50 % = 2346449028) LYMPH % (test code = 32.0 % 736-9) MONO % (test code = 11.3 % 5905-5) EOS % (test code = 4.3 % 713-8) BASO % (test code = 0.9 % 706-2) GRAN MAT x10^3(ANC) 2.85 10*3/uL 1.99-6.95 (test code = 3292921141) IMM GRAN x10^3 (test 0.03 10*3/uL 0-0.06 code = 3664827715) LYMPH x10^3 (test code 1.79 10*3/uL 1.09-3.23 = 731-0) MONO x10^3 (test code 0.63 10*3/uL 0.36-1.02 = 742-7) EOS x10^3 (test code = 0.24 10*3/uL 0.06-0.53 711-2) BASO x10^3 (test code 0.05 10*3/uL 0.01-0.09 = 704-7) Lab Interpretation Abnormal (test code = 99955-5) [facility] GLUCOSE (AUTOMATED)2020-03-06 22:46:00 Test Item Value Reference Range Interpretation Comments POCT GLU (test code = 6968094737) 209 mg/dL 70-110 H Lab Interpretation (test code = Abnormal 07783-8) [facility] GLUCOSE (AUTOMATED)2020-03-06 16:23:00 Test Item Value Reference Range Interpretation Comments POCT GLU (test code = 5576879864) 254 mg/dL 70-110 H Lab Interpretation (test code = Abnormal 53776-6) [facility] GLUCOSE (AUTOMATED)2020-03-06 12:51:00 Test Item Value Reference Range Interpretation Comments POCT GLU (test code = 5558954855) 126 mg/dL 70-110 H Lab Interpretation (test code = Abnormal 51055-1) [facility] HospitalTROPONIN [id number] 10:16:00 Test Item Value Reference Range Interpretation Comments TROPONIN I (test 0.056 ng/mL See_Comment H [Automated code = 1343795830) message] The system which generated this result [...] ? Lab Interpretation Abnormal (test code = 55235-5) [facility] (NA, K, CL, CO2, GLUCOSE, BUN, CREATININE, CA)2020-03-06 10:13:00 Test Item Value Reference Range Interpretation Comments NA (test code = 136 mmol/L 135-145 1612636391) K (test code = 4.1 mmol/L 3.5-5 0346567733) CL (test code = 95 mmol/L 98-108 L 7858601075) CO2 TOTAL (test code = 30 mmol/L 23-31 4843702459) AGAP (test code = 2-16 1112969695) BUN (test code = 35 mg/dL 7-23 H 9067693307) GLUCOSE (test code = 174 mg/dL 70-110 H 7435006327) CREATININE (test code = 1.67 mg/dL 0.6-1.25 H 5458477986) CALCIUM (test code = 9.7 mg/dL 8.6-10.6 9859196739) eGFR Calculation mL/min/1.73m2 (Non-) (test code = 0630353240) eGFR Calculation mL/min/1.73m2 () (test code = 7994127688) ALYSSA (test code = ALYSSA) Association of [...] tests). Lab Interpretation Abnormal (test code = 93229-8) [facility] WITH [id number] 09:16:00 Test Item Value Reference Range Interpretation Comments WBC (test code = See_Comment [Automated 6675-2) message] The sy stem which generated this result transmitted reference range : 4.20 - 10.70 10*3/?L. The reference range was not used to interpret this result as normal/abnormal . RBC (test code = See_Comment L [Automated 154-8) message] The sy stem which generated this [...] RDW-SD (test code = 45.6 fL 38.5-51.6 62955-8) RDW-CV (test code = 14.3 % 12.1-15.4 788-0) PLT (test code = See_Comment [Automated 777-3) message] The sy stem which generated this result transmitted reference range : 150 - 328 10*3/ ?L. The reference r corey was not used to interpret this result as normal/abnormal . MPV (test code = 9.8 fL 9.8-13 23138-5) NRBC/100 WBC (test See_Comment [Automat ed code = 2208814809) message] The system which generated this result transmitted reference range : 0.0 - 10.0 /100 WBCs. The refer ence range was not u sed to interpret th is result as normal/abnormal . NRBC x10^3 (test code <0.01 See_Comment [Auto mated = 2321931552) message] The s ystem which generated this result transmitted reference range : 10*3/?L. The reference range was not used to interpret this result as normal/abnormal . GRAN MAT (NEUT) % 56.1 % (test code = 770-8) IMM GRAN % (test code 0.10 % = 9545730502) LYMPH % (test code = 29.7 % 736-9) MONO % (test code = 9.6 % 5905-5) EOS % (test code = 3.8 % 713-8) BASO % (test code = 0.7 % 706-2) GRAN MAT x10^3(ANC) 3.79 10*3/uL 1.99-6.95 (test code = 3154328635) IMM GRAN x10^3 (test <0.03 0-0.06 code = 9359664975) LYMPH x10^3 (test code 2.01 10*3/uL 1.09-3.23 = 731-0) MONO x10^3 (test code 0.65 10*3/uL 0.36-1.02 = 742-7) EOS x10^3 (test code = 0.26 10*3/uL 0.06-0.53 711-2) BASO x10^3 (test code 0.05 10*3/uL 0.01-0.09 = 704-7) Lab Interpretation Abnormal (test code = 50970-3) [facility] GLUCOSE (AUTOMATED)2020-03-06 01:25:00 Test Item Value Reference Range Interpretation Comments POCT GLU (test code = 0839249375) 208 mg/dL 70-110 H Lab Interpretation (test code = Abnormal 47507-9) [facility] HospitalTROPONIN [id number] 00:08:00 Test Item Value Reference Range Interpretation Comments TROPONIN I (test 0.047 ng/mL See_Comment H [Automated code = 9896627398) message] The system which generated this result [...] ? Lab Interpretation Abnormal (test code = 57220-2) [facility] GLUCOSE (AUTOMATED)2020-03-05 21:19:00 Test Item Value Reference Range Interpretation Comments POCT GLU (test code = 6307802848) 234 mg/dL 70-110 H Lab Interpretation (test code = Abnormal 31944-8) [facility] GLUCOSE (AUTOMATED)2020-03-05 16:55:00 Test Item Value Reference Range Interpretation Comments POCT GLU (test code = 7959238926) 258 mg/dL 70-110 H Lab Interpretation (test code = Abnormal 38929-0) [facility] GLUCOSE (AUTOMATED)2020-03-05 12:59:00 Test Item Value Reference Range Interpretation Comments POCT GLU (test code = 9659975314) 194 mg/dL 70-110 H Lab Interpretation (test code = Abnormal 16074-9) [facility] HospitalTROPONIN [id number] 10:54:00 Test Item Value Reference Range Interpretation Comments TROPONIN I (test 0.071 ng/mL See_Comment H [Automated code = 8836085674) message] The system which generated this result [...] ? Lab Interpretation Abnormal (test code = 78458-2) [facility] (NA, K, CL, CO2, GLUCOSE, BUN, CREATININE, CA)2020-03-05 10:43:00 Test Item Value Reference Range Interpretation Comments NA (test code = 139 mmol/L 135-145 7251178890) K (test code = 4.1 mmol/L 3.5-5 4675889258) CL (test code = 101 mmol/L 98-108 5924072452) CO2 TOTAL (test code = 27 mmol/L 23-31 0521174383) AGAP (test code = 2-16 8491575281) BUN (test code = 25 mg/dL 7-23 H 3290776480) GLUCOSE (test code = 243 mg/dL 70-110 H 1197708502) CREATININE (test code = 1.22 mg/dL 0.6-1.25 9441009985) CALCIUM (test code = 9.8 mg/dL 8.6-10.6 9401715049) eGFR Calculation mL/min/1.73m2 (Non-) (test code = 5576573587) eGFR Calculation mL/min/1.73m2 () (test code = 7769827645) ALYSSA (test code = ALYSSA) Association of [...] tests). Lab Interpretation Abnormal (test code = 19190-7) [facility] WITH [id number] 10:23:00 Test Item Value Reference Range Interpretation Comments WBC (test code = See_Comment [Automated message] 6690-2) The system [employer] generated this result transmitted ref erence range: 4.20 - 1 0.70 10*3/?L. The re ference range was not u sed to interpret this result as normal/abnor mal. RBC (test code = See_Comment [Automated message] 829-8) The system [employer] generated this result transmitted ref erence range: [...] RDW-SD (test code 47.8 fL 38.5-51.6 = 74802-2) RDW-CV (test code 14.4 % 12.1-15.4 = 788-0) PLT (test code = See_Comment [Automated message] 777-3) The system [employer] generated this result transmitted ref erence range: 150 - 32 8 10*3/?L. The re ference range was not u sed to interpret this result as normal/abnor mal. MPV (test code = 9.8 fL 9.8-13 65320-1) NRBC/100 WBC (test See_Comment [Automat ed message] code = 3984143066) The [employer] which generated this result transmitted ref erence range: 0.0 - 10 .0 /100 WBCs. The refer ence range was not u sed to interpret this result as normal/abnor mal. NRBC x10^3 (test <0.01 See_Comment [Automated message] code = 6026442037) The syste m which generated this result transmitted ref erence range: 10*3/?L. The reference range was not used to interpr et this result as normal/abnormal . GRAN MAT (NEUT) % 48.8 % (test code = 770-8) IMM GRAN % (test 0.20 % code = 7760025311) LYMPH % (test code 34.7 % = 736-9) MONO % (test code 10.8 % = 5905-5) EOS % (test code = 4.9 % 713-8) BASO % (test code 0.6 % = 706-2) GRAN MAT 2.49 10*3/uL 1.99-6.95 x10^3(ANC) (test code = 5830925376) IMM GRAN x10^3 <0.03 0-0.06 (test code = 6658891902) LYMPH x10^3 (test 1.77 10*3/uL 1.09-3.23 code = 731-0) MONO x10^3 (test 0.55 10*3/uL 0.36-1.02 code = 742-7) EOS x10^3 (test 0.25 10*3/uL 0.06-0.53 code = 711-2) BASO x10^3 (test 0.03 10*3/uL 0.01-0.09 code = 704-7) [facility] HospitalXR CHEST 1 [id number] 03:06:08 No acute cardiopulmonary process. Unchanged enlargement [...] reviewed this study and agree with the abovereport.[facility] CORONAVIRUS COVID-19 [id number] 00:34:00 Test Item Value Reference Range Interpretation Comments SARS-CoV-2 (test code = Not Detected Not Detected 95042-9) ALYSSA (test code = ALYSSA) ID NOW COVID-19 Assay is an isothermal nucleic acid amplification test intended for the qualitative detection of nucleic acid from SARS-CoV-2 viral RNA in nasopharyngeal (TEAM LEAD) specimens. It is used under Emergency Use [...] indicated. Lab Interpretation Normal (test code = 50721-9) [facility] HospitalTroponin [id number] 00:08:00 Test Item Value Reference Range Interpretation Comments TROPONIN I (test 0.056 ng/mL See_Comment H [Automated code = 9511631808) message] The system which generated this result [...] ? Lab Interpretation Abnormal (test code = 18311-1) [facility] HospitalN-TERMINAL [id number] 00:04:00 Test Item Value Reference Range Interpretation Comments NT-proBNP (test code 562 pg/mL See_Comment H [Autom ated = 4791090062) message] The system which generated this result transmitted reference range : <=450. The reference range was not used to interpret this result as normal/abnormal . ALYSSA (test code = ALYSSA) Biotin has been reported to cause a negative bias, interpret results relative to patient's use of biotin. Lab Interpretation Abnormal (test code = 13184-3) [facility] HospitalProthrombin Time (PT) / [id number] 23:57:00 Test Item Value Reference Range Interpretation [...] tions. Lab Interpretation (test Normal code = 87902-2) [facility] HospitalBasi Metabolic Panel (NA, K, CL, CO2, GLUCOSE, BUN, CREATININE, CA)2020-03-04 23:56:00 Test Item Value Reference Range Interpretation Comments NA (test code = 139 mmol/L 135-145 5629008233) K (test code = 4.1 mmol/L 3.5-5 9374761278) CL (test code = 102 mmol/L 98-108 3599814184) CO2 TOTAL (test code = 29 mmol/L 23-31 3649759377) AGAP (test code = 2-16 6965127496) BUN (test code = 23 mg/dL 7-23 6384330971) GLUCOSE (test code = 193 mg/dL 70-110 H 2677457273) CREATININE (test code = 1.25 mg/dL 0.6-1.25 3031950443) CALCIUM (test code = 9.7 mg/dL 8.6-10.6 4683708673) eGFR Calculation mL/min/1.73m2 (Non-) (test code = 5435604528) eGFR Calculation mL/min/1.73m2 () (test code = 6620271495) ALYSSA (test code = ALYSSA) Association of [...] tests). Lab Interpretation Abnormal (test code = 08790-7) [facility] HospitalHepatic Function Panel (ALB, T.PRO, BILI T, BU/BC, ALT, AST, ALK PHOS)2020-03-04 23:56:00 Test Item Value Reference Range Interpretation Comments TOTAL BILI (test code = 5036985202) 1.1 mg/dL 0.1-1.1 BILI UNCON (test code = 9884589933) 1.1 mg/dL 0.1-1.1 BILI CONJ (test code = 7996444920) 0.0 mg/dL 0-0.3 T PROTEIN (test code = 4145545186) 7.1 g/dL 6.3-8.2 ALBUMIN (test code = 5737140375) 4.1 g/dL 3.5-5 ALK PHOS (test code = 9278409966) 61 U/L 34-122 ALTv (test code = 1742-6) 16 U/L 5-50 AST(SGOT) (test code = 6629730094) 23 U/L 13-40 Lab Interpretation (test code = Normal 73658-0) [facility] HospitalLipase [id number] 23:56:00 Test Item Value Reference Range Interpretation Comments LIPASE (test code = 5661441654) 149 U/L 0-220 Lab Interpretation (test code = Normal 04978-7) [facility] HospitalaPTT2020-04-19 23:56:00 Test Item Value Reference Range Interpretation Comments APTT Patient (test See_Comment [Automat ed code = 3173-2) message] The system which generated this result transmitted reference range : 23 - 38 Seconds . The reference range was not used to interpr et this result as normal/abnormal . ALYSSA (test code = ALYSSA) The [facility] patient population mean normal value for aPTT is 30 seconds. Lab Interpretation Normal (test code = 19175-1) [facility] HospitalCBC WITH [id number] 23:46:00 Test Item Value Reference Range Interpretation [...] RDW-SD (test code = 48.3 fL 38.5-51.6 89103-4) RDW-CV (test code = 14.7 % 12.1-15.4 788-0) PLT (test code = See_Comment [Automated 777-3) message] The sy stem which generated this result transmitted reference range : 150 - 328 10*3/ ?L. The reference r corey was not used to interpret this result as normal/abnormal . MPV (test code = 9.8 fL 9.8-13 92501-1) NRBC/100 WBC (test See_Comment [Automat ed code = 6315441930) message] The system which generated this result transmitted reference range : 0.0 - 10.0 /100 WBCs. The refer ence range was not u sed to interpret th is result as normal/abnormal . NRBC x10^3 (test code <0.01 See_Comment [Auto mated = 8452965487) message] The s ystem which generated this result transmitted reference range : 10*3/?L. The reference range was not used to interpret this result as normal/abnormal . GRAN MAT (NEUT) % 60.1 % (test code = 770-8) IMM GRAN % (test code 0.20 % = 7649068540) LYMPH % (test code = 26.4 % 736-9) MONO % (test code = 9.9 % 5905-5) EOS % (test code = 2.8 % 713-8) BASO % (test code = 0.6 % 706-2) GRAN MAT x10^3(ANC) 3.17 10*3/uL 1.99-6.95 (test code = 7810433796) IMM GRAN x10^3 (test <0.03 0-0.06 code = 5943359466) LYMPH x10^3 (test code 1.39 10*3/uL 1.09-3.23 = 731-0) MONO x10^3 (test code 0.52 10*3/uL 0.36-1.02 = 742-7) EOS x10^3 (test code = 0.15 10*3/uL 0.06-0.53 711-2) BASO x10^3 (test code 0.03 10*3/uL 0.01-0.09 = 704-7) Lab Interpretation Abnormal (test code = 96100-0) [facility] GLUCOSE (AUTOMATED)2020-03-02 16:04:00 Test Item Value Reference Range Interpretation Comments POCT GLU (test code = 4783083463) 214 mg/dL 70-110 H Lab Interpretation (test code = Abnormal 56392-5) [facility] GLUCOSE (AUTOMATED)2020-03-02 16:04:00 Test Item Value Reference Range Interpretation Comments POCT GLU (test code = 0259170071) 271 mg/dL 70-110 H Lab Interpretation (test code = Abnormal 39322-9) [facility] HospitalN-TERMINAL [id number] 09:43:00 Test Item Value Reference Range Interpretation Comments NT-proBNP (test code 1670 pg/mL See_Comment H [Autom ated = 1931072127) message] The system which generated this result transmitted reference range : <=450. The reference range was not used to interpret this result as normal/abnormal . ALYSSA (test code = ALYSSA) Biotin has been reported to cause a negative bias, interpret results relative to patient's use of biotin. Lab Interpretation Abnormal (test code = 51245-1) [facility] METABOLIC PANEL (NA, K, CL, CO2, GLUCOSE, BUN, CREATININE, CA)2020-03-02 09:33:00 Test Item Value Reference Range Interpretation Comments NA (test code = 143 mmol/L 135-145 2007853593) K (test code = 3.8 mmol/L 3.5-5 2178841544) CL (test code = 105 mmol/L 98-108 3978678226) CO2 TOTAL (test code = 28 mmol/L 23-31 2903150896) AGAP (test code = 2-16 9834845821) BUN (test code = 19 mg/dL 7-23 5099812085) GLUCOSE (test code = 152 mg/dL 70-110 H 1517489640) CREATININE (test code = 1.18 mg/dL 0.6-1.25 2967416135) CALCIUM (test code = 9.0 mg/dL 8.6-10.6 2779485646) eGFR Calculation mL/min/1.73m2 (Non-) (test code = 7062167384) eGFR Calculation mL/min/1.73m2 () (test code = 4167211333) ALYSSA (test code = ALYSSA) Association of [...] tests). Lab Interpretation Abnormal (test code = 67507-7) [facility]:00 Test Item Value Reference Range Interpretation Comments MAGNESIUM (test code = 5851467123) 1.8 mg/dL 1.7-2.4 Lab Interpretation (test code = Normal 87195-4) [facility]2020-03-01 20:42:00 Test Item Value Reference Range Interpretation Comments POCT GLU (test code = 6455863421) 231 mg/dL 70-110 H Lab Interpretation (test code = Abnormal 20451-6) [facility] HospitalVITAMIN B12, [id number] 11:51:00 Test Item Value Reference Range Interpretation Comments VIT B12 (test code = 325 pg/mL 240-930 1149286432) ALYSSA (test code = ALYSSA) Biotin has been reported to cause a positive bias, interpret results relative to patient's use of biotin. Lab Interpretation (test Normal code = 71188-1) [facility]2020-[facility] 11:49:00 Test Item Value Reference Range Interpretation Comments FOLATE SER (test code = >20.0 3-20 H Slig ht hemolysis 4629491864) Lab Interpretation (test Abnormal code = 21779-1) [facility] HospitalPROCALCITONIN2020-04-16 10:49:00 Test Item Value Reference Range Interpretation Comments Procalcitonin (test 3.05 ng/mL <0.07 H code = 0867202094) ALYSSA (test code = ALYSSA) INTERPRETATION OF [...] biotics/default.asp Lab Interpretation Abnormal (test code = 91381-2) [facility] HospitalTROP[facility]IN [id number] 09:58:00 Test Item Value Reference Range Interpretation Comments TROPONIN I (test 0.093 ng/mL See_Comment H [Automated code = 5687122070) message] The system which generated this result [...] ? Lab Interpretation Abnormal (test code = 83253-1) [facility] HospitalN-TERMINAL [id number] 09:55:00 Test Item Value Reference Range Interpretation Comments NT-proBNP (test code 4450 pg/mL See_Comment H [Autom ated = 9611844486) message] The system which generated this result transmitted reference range : <=450. The reference range was not used to interpret this result as normal/abnormal . ALYSSA (test code = ALYSSA) Biotin has been reported to cause a negative bias, interpret results relative to patient's use of biotin. Lab Interpretation Abnormal (test code = 77978-4) [facility] HospitalBasi Metabolic Panel (NA, K, CL, CO2, GLUCOSE, BUN, CREATININE, CA)2020-03-01 09:50:00 Test Item Value Reference Range Interpretation Comments NA (test code = 141 mmol/L 135-145 2339138268) K (test code = 3.5 mmol/L 3.5-5 8239491136) CL (test code = 105 mmol/L 98-108 2451963312) CO2 TOTAL (test code = 26 mmol/L 23-31 6791184864) AGAP (test code = 2-16 2606639166) BUN (test code = 13 mg/dL 7-23 9037935032) GLUCOSE (test code = 219 mg/dL 70-110 H 7195000153) CREATININE (test code = 1.01 mg/dL 0.6-1.25 9541559494) CALCIUM (test code = 8.7 mg/dL 8.6-10.6 0848702913) eGFR Calculation mL/min/1.73m2 (Non-) (test code = 2300692122) eGFR Calculation mL/min/1.73m2 () (test code = 0096496265) ALYSSA (test code = ALYSSA) Association of [...] tests). Lab Interpretation Abnormal (test code = 88123-5) [facility] HospitalMagnesium [id number] 09:50:00 Test Item Value Reference Range Interpretation Comments MAGNESIUM (test code = 9757926190) 1.9 mg/dL 1.7-2.4 Lab Interpretation (test code = Normal 49249-3) [facility] HospitalCB WITH [id number] 09:22:00 Test Item Value Reference Range Interpretation [...] RDW-SD (test code = 47.8 fL 38.5-51.6 34409-1) RDW-CV (test code = 14.8 % 12.1-15.4 788-0) PLT (test code = See_Comment L [Automated 777-3) message] The sy stem which generated this result transmitted reference range : 150 - 328 10*3/ ?L. The reference r corey was not used to interpret this result as normal/abnormal . MPV (test code = 9.9 fL 9.8-13 50272-3) NRBC/100 WBC (test See_Comment [Automat ed code = 1588302213) message] The system which generated this result transmitted reference range : 0.0 - 10.0 /100 WBCs. The refer ence range was not u sed to interpret th is result as normal/abnormal . NRBC x10^3 (test code <0.01 See_Comment [Auto mated = 5809886256) message] The s ystem which generated this result transmitted reference range : 10*3/?L. The reference range was not used to interpret this result as normal/abnormal . GRAN MAT (NEUT) % 66.0 % (test code = 770-8) IMM GRAN % (test code 0.30 % = 5306601768) LYMPH % (test code = 20.8 % 736-9) MONO % (test code = 9.5 % 5905-5) EOS % (test code = 2.8 % 713-8) BASO % (test code = 0.6 % 706-2) GRAN MAT x10^3(ANC) 4.44 10*3/uL 1.99-6.95 (test code = 6499331241) IMM GRAN x10^3 (test <0.03 0-0.06 code = 2684485650) LYMPH x10^3 (test code 1.40 10*3/uL 1.09-3.23 = 731-0) MONO x10^3 (test code 0.64 10*3/uL 0.36-1.02 = 742-7) EOS x10^3 (test code = 0.19 10*3/uL 0.06-0.53 711-2) BASO x10^3 (test code 0.04 10*3/uL 0.01-0.09 = 704-7) Lab Interpretation Abnormal (test code = 52997-0) [facility] HospitalGLYCOSYLATED HEMOGLOBIN (A1C)2020-03-01 06:49:00 Test Item [...] Indicated Lab Interpretation Abnormal (test code = 21163-9) [facility] HospitalURIC [id number] 06:25:00 Test Item Value Reference Range Interpretation Comments URIC ACID (test code = 1721074195) 2.3 mg/dL 3.6-8 L Lab Interpretation (test code = Abnormal 01019-8) [facility] HospitalSEDIMENTATION [id number] 05:25:00 Test Item Value Reference Range Interpretation Comments ESR (test code = See_Comment H [Automated message] 0329368909) The system Soma generated this result transmitted ref erence range: 0 - 10 m m/HR. The reference r corey was not used to interpret this result as normal/abnor mal. Lab Interpretation (test Abnormal code = 33235-2) [facility] HospitalN-TERMINAL [id number] 04:07:00 Test Item Value Reference Range Interpretation Comments NT-proBNP (test code 4080 pg/mL See_Comment H [Autom ated = 9837010385) message] The system which generated this result transmitted reference range : <=450. The reference range was not used to interpret this result as normal/abnormal . ALYSSA (test code = ALYSSA) Biotin has been reported to cause a negative bias, interpret results relative to patient's use of biotin. Lab Interpretation Abnormal (test code = 29920-7) [facility]PO[facility]SE (AUT[facility]ATED)2020-03-01 03:42:00 Test Item Value Reference Range Interpretation Comments POCT GLU (test code = 9754896959) 190 mg/dL 70-110 H Lab Interpretation (test code = Abnormal 25755-9) [facility] HospitalTROPONIN [id number] 03:30:00 Test Item Value Reference Range Interpretation Comments TROPONIN I (test 0.098 ng/mL See_Comment H [Automated code = 0948679265) message] The system which generated this result [...] ? Lab Interpretation Abnormal (test code = 67497-4) [facility] HospitalHEPATIC FUNCTION PANEL (09259) (ALB,T.PRO,BILI T,BU/BC,ALT,AST,ALK PHOS)2020-03-01 03:24:00 Test Item Value Reference Range Interpretation Comments TOTAL BILI (test code = 1184341555) 2.2 mg/dL 0.1-1.1 H BILI UNCON (test code = 4333057452) 2.0 mg/dL 0.1-1.1 H BILI CONJ (test code = 5681444500) 0.0 mg/dL 0-0.3 T PROTEIN (test code = 8573066841) 6.7 g/dL 6.3-8.2 ALBUMIN (test code = 8553729526) 4.0 g/dL 3.5-5 ALK PHOS (test code = 5564606772) 48 U/L 34-122 ALTv (test code = 1742-6) 18 U/L 5-50 AST(SGOT) (test code = 4032210191) 57 U/L 13-40 H Lab Interpretation (test code = Abnormal 18096-1) [facility] HospitalPhosphorus [id number] 03:17:00 Test Item Value Reference Range Interpretation Comments PHOSPHORUS (test code = 3.1 mg/dL 2.5-5 Slig ht hemolysis 6158432186) Lab Interpretation (test Normal code = 76771-2) [facility] HospitalPROTHROMBIN TIME / [id number] 03:08:00 Test Item Value Reference Range Interpretation [...] tions. Lab Interpretation (test Normal code = 41781-1) [facility] HospitalCREATINE [id number] 03:01:00 Test Item Value Reference Range Interpretation Comments CK (test code = 5975395225) 68 U/L 33-194 Lab Interpretation (test code = Normal 18459-1) [facility] HospitalURIC [id number] 02:41:00 Test Item Value Reference Range Interpretation Comments URIC ACID (test code = 9266218338) 2.3 mg/dL 3.6-8 L Lab Interpretation (test code = Abnormal 65149-0) [facility] HospitalTHYROID STIMULATING [id number] 02:26:00 Test Item Value Reference Range Interpretation Comments TSH (test code = See_Comment [Automated message] 1649740168) The system ic h generated this result transmitted ref erence range: 0.45 - 4 .70 mIU/L. The refe rence range was not u sed to interpret this result as normal/abnor mal. Lab Interpretation (test Normal code = 17998-7) [facility] HospitalN-TERMINAL [id number] 02:04:00 Test Item Value Reference Range Interpretation Comments NT-proBNP (test code 4390 pg/mL See_Comment H [Autom ated = 1297226440) message] The system which generated this result transmitted reference range : <=450. The reference range was not used to interpret this result as normal/abnormal . ALYSSA (test code = ALYSSA) Biotin has been reported to cause a negative bias, interpret results relative to patient's use of biotin. Lab Interpretation Abnormal (test code = 24106-2) [facility] HospitalMAGNESIUM2020-04-16 02:01:00 Test Item Value Reference Range Interpretation Comments MAGNESIUM (test code = 8097473548) 1.5 mg/dL 1.7-2.4 L Lab Interpretation (test code = Abnormal 13525-4) [facility] HospitalLIPASE2020-04-16 00:22:00 Test Item Value Reference Range Interpretation Comments LIPASE (test code = 7458363119) 68 U/L 0-220 Lab Interpretation (test code = Normal 13083-9) [facility] HospitalCORONAVIRUS COVID-19 [id number] 23:42:00 Test Item Value Reference Range Interpretation Comments SARS-CoV-2 (test code = Not Detected Not Detected 48752-8) ALYSSA (test code = ALYSSA) ID NOW COVID-19 Assay is an isothermal nucleic acid amplification test intended for the qualitative detection of nucleic acid from SARS-CoV-2 viral RNA in nasopharyngeal (TEAM LEAD) specimens. It is used under Emergency Use [...] indicated. Lab Interpretation Normal (test code = 00554-2) [facility] HospitalXR CHEST 1 VW [id number] 23:26:02 No acute intrathoracic abnormality, specifically no radiographic findingsto suggest COVID-19 pneumonia. Disclaimer: Generally, the findings on chest imaging in COVID-19 are notspecific, and overlap with other infections, including influenza, H1N1,SARS and MERS. According to the Centers for Disease Control (CDC) and recent statement ofthe [employer], viral testing remains the only specificmethod of diagnosis. Confirmation with the viral test is required, even ifradiologic findingsare suggestive of COVID-[address]. Preliminary Report Dictated by Resident: Radu Boo ?MD Bindu., have reviewed this study and agree with [...] Disease Control (CDC) and recent statement ofthe [employer], viral testing remains the only specificmethod of diagnosis. Confirmation with the viral test is required, even ifradiologic findings are suggestive of COVID-[address]. Preliminary Report Dictated by Resident: Radu Boo MD., have reviewed this study and agree with theabovereport.[facility] HospitalDomingo [id number] 22:59:00 Test Item Value Reference Range Interpretation Comments TROPONIN I (test 0.071 ng/mL See_Comment H [Automated code = 6452590848) message] The system which generated this result [...] ? Lab Interpretation Abnormal (test code = 68531-4) [facility] (NA, K, CL, CO2, GLUCOSE, BUN, CREATININE, CA)2020-02-29 22:48:00 Test Item Value Reference Range Interpretation Comments NA (test code = 141 mmol/L 135-145 8135812315) K (test code = 3.2 mmol/L 3.5-5 L 3948263020) CL (test code = 104 mmol/L 98-108 4134207273) CO2 TOTAL (test code = 25 mmol/L 23-31 0497020210) AGAP (test code = 2-16 7211735148) BUN (test code = 12 mg/dL 7-23 0498622787) GLUCOSE (test code = 250 mg/dL 70-110 H 6534380832) CREATININE (test code = 1.02 mg/dL 0.6-1.25 8978831319) CALCIUM (test code = 8.9 mg/dL 8.6-10.6 7569704950) eGFR Calculation mL/min/1.73m2 (Non-) (test code = 8063237047) eGFR Calculation mL/min/1.73m2 () (test code = 9508214215) ALYSSA (test code = ALYSSA) Association of [...] tests). Lab Interpretation Abnormal (test code = 84528-7) [facility] WITH [id number] 22:41:00 Test Item Value Reference Range Interpretation Comments WBC (test code = See_Comment [Automated 8772-2) message] The sy stem which generated this result transmitted reference range : 4.20 - 10.70 10*3/?L. The reference range was not used to interpret this result as normal/abnormal . RBC (test code = See_Comment L [Automated 520-8) message] The sy stem which generated this [...] RDW-SD (test code = 46.6 fL 38.5-51.6 05128-2) RDW-CV (test code = 14.6 % 12.1-15.4 788-0) PLT (test code = See_Comment [Automated 777-3) message] The sy stem which generated this result transmitted reference range : 150 - 328 10*3/ ?L. The reference r corye was not used to interpret this result as normal/abnormal . MPV (test code = 9.7 fL 9.8-13 L 41513-4) NRBC/100 WBC (test See_Comment [Automat ed code = 5920767861) message] The system which generated this result transmitted reference range : 0.0 - 10.0 /100 WBCs. The refer ence range was not u sed to interpret th is result as normal/abnormal . NRBC x10^3 (test code <0.01 See_Comment [Auto mated = 0139860025) message] The s ystem which generated this result transmitted reference range : 10*3/?L. The reference range was not used to interpret this result as normal/abnormal . GRAN MAT (NEUT) % 68.6 % (test code = 770-8) IMM GRAN % (test code 0.30 % = 5021996528) LYMPH % (test code = 18.6 % 736-9) MONO % (test code = 10.1 % 5905-5) EOS % (test code = 1.8 % 713-8) BASO % (test code = 0.6 % 706-2) GRAN MAT x10^3(ANC) 4.29 10*3/uL 1.99-6.95 (test code = 6682960500) IMM GRAN x10^3 (test <0.03 0-0.06 code = 0188756876) LYMPH x10^3 (test code 1.16 10*3/uL 1.09-3.23 = 731-0) MONO x10^3 (test code 0.63 10*3/uL 0.36-1.02 = 742-7) EOS x10^3 (test code = 0.11 10*3/uL 0.06-0.53 711-2) BASO x10^3 (test code 0.04 10*3/uL 0.01-0.09 = 704-7) Lab Interpretation Abnormal (test code = 91499-8) [facility] HospitalLawiic Acid Whole [id number] 22:38:00 Test Item Value Reference Range Interpretation Comments LACTIC ACID (test code = 1.88 mmol/L 0.3-2.6 3096667254) [facility] HospitalPOLA GLUCOSE (AUTOMATED)2020-01-17 18:18:00 Test Item Value Reference Range Interpretation Comments POCT GLU (test code = 2521694803) 290 mg/dL 70-110 H Lab Interpretation (test code = Abnormal 36209-6) [facility] HospitalTROPONIN [id number] 18:01:00 Test Item Value Reference Range Interpretation Comments TROPONIN I (test 0.065 ng/mL See_Comment H [Automated code = 8749673410) message] The system which generated this result [...] ? Lab Interpretation Abnormal (test code = 67696-2) [facility] HospitalaPTT2020-03-03 17:10:00 Test Item Value Reference Range Interpretation Comments APTT Patient (test See_Comment H [Automat ed code = 3173-2) message] The system which generated this result transmitted reference range : 23 - 38 Seconds . The reference range was not used to interpr et this result as normal/abnormal . ALYSSA (test code = ALYSSA) The [facility] patient population mean normal value for aPTT is 30 seconds. Lab Interpretation Abnormal (test code = 20376-1) [facility] HospitalPOCT GLUCOSE (AUTOMATED)2020-01-17 11:59:00 Test Item Value Reference Range Interpretation Comments POCT GLU (test code = 7539447843) 185 mg/dL 70-110 H Lab Interpretation (test code = Abnormal 56691-8) [facility] HospitalTROPONIN [id number] 11:23:00 Test Item Value Reference Range Interpretation Comments TROPONIN I (test 0.073 ng/mL See_Comment H [Automated code = 1034103044) message] The system which generated this result [...] ? Lab Interpretation Abnormal (test code = 53943-0) [facility] (NA, K, CL, CO2, GLUCOSE, BUN, CREATININE, CA)2020-01-17 11:16:00 Test Item Value Reference Range Interpretation Comments NA (test code = 136 mmol/L 135-145 4860085999) K (test code = 3.3 mmol/L 3.5-5 L 5653585546) CL (test code = 101 mmol/L 98-108 1008610238) CO2 TOTAL (test code = 26 mmol/L 23-31 2916813697) AGAP (test code = 2-16 5529585797) BUN (test code = 19 mg/dL 7-23 0429677861) GLUCOSE (test code = 227 mg/dL 70-110 H 2043079623) CREATININE (test code = 1.33 mg/dL 0.6-1.25 H 4219527772) CALCIUM (test code = 9.1 mg/dL 8.6-10.6 3240262910) eGFR Calculation mL/min/1.73m2 (Non-) (test code = 4833860138) eGFR Calculation mL/min/1.73m2 () (test code = 7476916443) ALYSSA (test code = ALYSSA) Association of [...] tests). Lab Interpretation Abnormal (test code = 55125-7) [facility] HospitalaPTT2020-03-03 11:00:00 Test Item Value Reference Range Interpretation Comments APTT Patient (test See_Comment H [Automat ed code = 3173-2) message] The system which generated this result transmitted reference range : 23 - 38 Seconds . The reference range was not used to interpr et this result as normal/abnormal . ALYSSA (test code = ALYSSA) The [facility] patient population mean normal value for aPTT is 30 seconds. Lab Interpretation Abnormal (test code = 21417-6) [facility] HospitalCBC WITH [id number] 10:43:00 Test Item Value Reference Range Interpretation Comments WBC (test code = See_Comment [Automated message] 6690-2) The system Soma generated this result transmitted ref erence range: 4.20 - 1 0.70 10*3/?L. The re ference range was not u sed to interpret this result as normal/abnor mal. RBC (test code = See_Comment [Automated message] 789-8) The system Soma generated this result transmitted ref erence range: [...] RDW-SD (test code 41.5 fL 38.5-51.6 = 20297-8) RDW-CV (test code 12.8 % 12.1-15.4 = 788-0) PLT (test code = See_Comment [Automated message] 777-3) The system whic h generated this result transmitted ref erence range: 150 - 32 8 10*3/?L. The re ference range was not u sed to interpret this result as normal/abnor mal. MPV (test code = 10.7 fL 9.8-13 05863-0) NRBC/100 WBC (test See_Comment [Automat ed message] code = 3542460610) The syste m which generated this result transmitted ref erence range: 0.0 - 10 .0 /100 WBCs. The refer ence range was not u sed to interpret this result as normal/abnor mal. NRBC x10^3 (test <0.01 See_Comment [Automated message] code = 2935721021) The syste m which generated this result transmitted ref erence range: 10*3/?L. The reference range was not used to interpr et this result as normal/abnormal . GRAN MAT (NEUT) % 56.1 % (test code = 770-8) IMM GRAN % (test 0.30 % code = 2981590634) LYMPH % (test code 29.5 % = 736-9) MONO % (test code 9.9 % = 5905-5) EOS % (test code = 3.3 % 713-8) BASO % (test code 0.9 % = 706-2) GRAN MAT 3.73 10*3/uL 1.99-6.95 x10^3(ANC) (test code = 6305650397) IMM GRAN x10^3 <0.03 0-0.06 (test code = 2380080859) LYMPH x10^3 (test 1.96 10*3/uL 1.09-3.23 code = 731-0) MONO x10^3 (test 0.66 10*3/uL 0.36-1.02 code = 742-7) EOS x10^3 (test 0.22 10*3/uL 0.06-0.53 code = 711-2) BASO x10^3 (test 0.06 10*3/uL 0.01-0.09 code = 704-7) [facility] GLUCOSE (AUTOMATED)2020-01-17 01:49:00 Test Item Value Reference Range Interpretation Comments POCT GLU (test code = 2871365822) 305 mg/dL 70-110 H Lab Interpretation (test code = Abnormal 68573-8) [facility] GLUCOSE (AUTOMATED)2020-01-17 00:01:00 Test Item Value Reference Range Interpretation Comments POCT GLU (test code = 2644393990) 271 mg/dL 70-110 H Lab Interpretation (test code = Abnormal 86906-3) [facility] HospitalaPTT2020-03-02 22:23:00 Test Item Value Reference Range Interpretation Comments APTT Patient (test See_Comment H [Automat ed code = 3173-2) message] The system which generated this result transmitted reference range : 23 - 38 Seconds . The reference range was not used to interpr et this result as normal/abnormal . ALYSSA (test code = ALYSSA) The [facility] patient population mean normal value for aPTT is 30 seconds. Lab Interpretation Abnormal (test code = 33194-4) [facility] HospitalTROPONIN [id number] 21:22:00 Test Item Value Reference Range Interpretation Comments TROPONIN I (test 0.061 ng/mL See_Comment H [Automated code = 6506445514) message] The system which generated this result [...] ? Lab Interpretation Abnormal (test code = 30674-0) [facility] HospitalPO[facility])2020-01-16 17:37:00 Test Item Value Reference Range Interpretation Comments POCT GLU (test code = 0358055772) 271 mg/dL 70-110 H Lab Interpretation (test code = Abnormal 42002-1) [facility] HospitalaPTT2020-03-02 12:47:00 Test Item Value Reference Range Interpretation Comments APTT Patient (test See_Comment HH [Automat ed code = 3173-2) message] The system which generated this result transmitted reference range : 23 - 38 Seconds . The reference range was not used to interpr et this result as normal/abnormal . ALYSSA (test code = ALYSSA) The [facility] patient population mean normal value for aPTT is 30 seconds. Lab Interpretation Abnormal (test code = 65955-8) [facility] HospitalTROPONIN [id number] 12:35:00 Test Item Value Reference Range Interpretation Comments TROPONIN I (test 0.074 ng/mL See_Comment H [Automated code = 7924393168) message] The system which generated this result [...] ? Lab Interpretation Abnormal (test code = 55218-4) [facility] HospitalLIPID PANEL (52560)(TOTAL CHOLESTEROL, TRIGLYCERIDES, HDL)2020-01-16 12:23:00 Test Item Value Reference Range Interpretation Comments CHOL (test code = 95 mg/dL 120-200 L 2013655019) HDL (test code = 44 mg/dL >40 9215266300) HDLC RATIO (test code = See_Comment [Au tomated message] 8155756593) The system Soma generated this result transmitted ref erence range: <=5.0. T he reference range was not used to int erpret this result as normal/abnormal . TRIG (test code = 89 mg/dL 30-170 0743129533) LDL CHOL (test code = 33 mg/dL See_Comment [Auto mated message] 35397-9) The system Soma generated this result transmitted ref erence range: <=160. T he reference range was not used to int erpret this result as normal/abnormal . VLDL (test code = 18 mg/dL 5-60 3008801441) Lab Interpretation (test Abnormal code = 86819-3) [facility] HospitalGlycosylated Hemoglobin (A1C)2020-01-16 09:03:00 Test Item [...] Indicated Lab Interpretation Abnormal (test code = 09597-8) [facility] HospitalCritical Esit7959-82-63 05:48:18Charanjit Heck MD ? ? 01/15/2020 11:48 [...] review of old charts and examination of patientUnSurgery Specialty Hospitals of AmericaProthrombin Time (PT) / [id number] 05:28:00 Test Item Value Reference Range Interpretation [...] tions. Lab Interpretation (test Normal code = 86934-6) [facility] HospitalaPTT2020-03-02 05:27:00 Test Item Value Reference Range Interpretation Comments APTT Patient (test See_Comment [Automat ed code = 3173-2) message] The system which generated this result transmitted reference range : 23 - 38 Seconds . The reference range was not used to interpr et this result as normal/abnormal . ALYSSA (test code = ALYSSA) The [facility] patient population mean normal value for aPTT is 30 seconds. Lab Interpretation Normal (test code = 59703-9) [id number] 05:11:00 Test Item Value Reference Range Interpretation Comments TROPONIN I (test 0.075 ng/mL See_Comment H [Automated code = 8234927387) message] The system which generated this result [...] ? Lab Interpretation Abnormal (test code = 97081-4) [facility] [id number] 05:08:00 Test Item Value Reference Range Interpretation Comments NT-proBNP (test code 896 pg/mL See_Comment H [Autom ated = 2926448050) message] The system which generated this result transmitted reference range : <=450. The reference range was not used to interpret this result as normal/abnormal . ALYSSA (test code = ALYSSA) Biotin has been reported to cause a negative bias, interpret results relative to patient's use of biotin. Lab Interpretation Abnormal (test code = 41388-5) [facility] (NA, K, CL, CO2, GLUCOSE, BUN, CREATININE, CA)2020-01-16 04:59:00 Test Item Value Reference Range Interpretation Comments NA (test code = 136 mmol/L 135-145 6374040020) K (test code = 4.0 mmol/L 3.5-5 8803155809) CL (test code = 101 mmol/L 98-108 4985889633) CO2 TOTAL (test code = 27 mmol/L 23-31 7613652773) AGAP (test code = 2-16 9545302357) BUN (test code = 17 mg/dL 7- 4390592596) GLUCOSE (test code = 445 mg/dL 70-110 H 7064338381) CREATININE (test code = 1.29 mg/dL 0.6-1.25 H 1651782163) CALCIUM (test code = 8.8 mg/dL 8.6-10.6 9233315980) eGFR Calculation mL/min/1.73m2 (Non-) (test code = 9064565761) eGFR Calculation mL/min/1.73m2 () (test code = 3668757915) ALYSSA (test code = ALYSSA) Association of [...] tests). Lab Interpretation Abnormal (test code = 81143-7) [facility] (ALB, T.PRO, BILI T, BU/BC, ALT, AST, ALK PHOS)2020-01-16 04:59:00 Test Item Value Reference Range Interpretation Comments TOTAL BILI (test code = 0707975709) 1.3 mg/dL 0.1-1.1 H BILI UNCON (test code = 0649094063) 1.1 mg/dL 0.1-1.1 BILI CONJ (test code = 2394454840) 0.0 mg/dL 0-0.3 T PROTEIN (test code = 0721137813) 6.3 g/dL 6.3-8.2 ALBUMIN (test code = 4844159072) 3.9 g/dL 3.5-5 ALK PHOS (test code = 6994915179) 67 U/L 34-122 ALTv (test code = 1742-6) 15 U/L 5-50 AST(SGOT) (test code = 0090364448) 23 U/L 13-40 Lab Interpretation (test code = Abnormal 51778-5) [facility] 1 [id number] 04:54:13Impression: Moderate cardiomegaly without acute pulmonary process. RL: 460 AFC: 64410 Indication: Chest pain Comparison: None available Findings: Single AP view of the chest. The cardiopericardial silhouette ismoderately enlarged. The lungs are clear bilaterally. The visualized bonythorax is intact. A thoracic neurostimulator device is in place. [employer], Radiant Results Inft User - 01/15/2020 10:55 PM CSTIndication: Chest painComparison: None availableFindings: Single AP view of the chest. The cardiopericardial silhouette ismoderately enlarged. The lungs are clear bilaterally. The visualized bonythorax is intact. A thoracic neurostimulator device is in place.IMPRESSIONImpression:Moderate cardiomegaly without acute pulmonary process.RL: 460AFC: [id number] signed by Esperanza Rosado MD, PhD at 01/15/2020 10:54 PMUnH[facility] WITH [id number] 04:51:00 Test Item Value Reference Range Interpretation [...] RDW-SD (test code = 40.7 fL 38.5-51.6 72725-3) RDW-CV (test code = 12.8 % 12.1-15.4 788-0) PLT (test code = See_Comment L [Automated 777-3) message] The sy stem which generated this result transmitted reference range : 150 - 328 10*3/ ?L. The reference r corey was not used to interpret this result as normal/abnormal . MPV (test code = 10.6 fL 9.8-13 84006-3) IPF % (test code = 2.8 % 1.2-10.7 Platelet count 0151539450) measured by fluorescence method. NRBC/100 WBC (test See_Comment [Automat ed code = 9682418368) message] The system which generated this result transmitted reference range : 0.0 - 10.0 /100 WBCs. The refer ence range was not u sed to interpret th is result as normal/abnormal . NRBC x10^3 (test code <0.01 See_Comment [Auto mated = 8003493180) message] The s ystem which generated this result transmitted reference range : 10*3/?L. The reference range was not used to interpret this result as normal/abnormal . GRAN MAT (NEUT) % 56.0 % (test code = 770-8) IMM GRAN % (test code 0.20 % = 0082947115) LYMPH % (test code = 30.5 % 736-9) MONO % (test code = 9.6 % 5905-5) EOS % (test code = 2.8 % 713-8) BASO % (test code = 0.9 % 706-2) GRAN MAT x10^3(ANC) 2.98 10*3/uL 1.99-6.95 (test code = 2666194501) IMM GRAN x10^3 (test <0.03 0-0.06 code = 5779656292) LYMPH x10^3 (test code 1.62 10*3/uL 1.09-3.23 = 731-0) MONO x10^3 (test code 0.51 10*3/uL 0.36-1.02 = 742-7) EOS x10^3 (test code = 0.15 10*3/uL 0.06-0.53 711-2) BASO x10^3 (test code 0.05 10*3/uL 0.01-0.09 = 704-7) Lab Interpretation Abnormal (test code = 83641-3) [facility]"
[2022-03-13] MEDS ORDERED: MORPHINE 4 MG/ML SYR ONE (14:07)
[2022-03-13] MEDS ORDERED: ONDANSETRON 4 MG/2 ML VIAL ONE (14:07)
--- NOTE | 2022-03-13 14:39 | EDPHYS ---
Physician Documentation [facility] Name: Demetrius Sarmiento Age: 81 yrs Sex: Male : 1940 Arrival Date: 03/13/2022 Time: 13:36 Bed 13 Private MD: ED Physician Jose Ferguson HPI: 03/13 14:02 This 81 yrs old Male presents to ER via EMS with complaints of Back Pain - hx of jr8 sciatic nerve damage-pain has been worsening over the past 2 weeks.. 14:02 The problem was sustained without known cause. Modifying factors: The patient symptoms jr8 are alleviated by nothing, the patient symptoms are aggravated by any movement. Severity of symptoms: At their worst the symptoms were moderate, in the emergency department the symptoms are unchanged. The patient has experienced similar episodes in the past, a few times. The patient has been recently seen by a physician:. This is an 81-year-old male patient with a history of chronic low back pain that has been seen several times recently for continued pain to lower back. Patient has had plain films completed along with a CT scan showing no acute cord compression or any other acute abnormality. Patient has a history of surgeries to the low spine in the past without acute change. Patient today complains of the same symptoms and without any new additional symptoms. Stated that the pain starts in his low back and moves down his left leg. Denies bowel or bladder dysfunction, weakness, numbness to the pelvic or perineal region. Historical: - Allergies: 13:41 No Known Allergies; jg9 - Home Meds: 13:41 aspirin 81 mg Oral TbEC 1 tab once daily [Active]; atorvastatin 40 mg Oral tab 1 tab jg9 nightly [Active]; clopidogrel 75 mg Oral tab 1 tab once daily [Active]; donepezil 5 mg Oral tab 1 tab nightly [Active]; furosemide 20 mg Oral tab 1 tab once daily [Active]; isosorbide mononitrate 120 mg Oral Tb24 1 tab once daily [Active]; Januvia 50 mg Oral tab 1 tab once daily [Active]; potassium chloride 10 mEq Oral TbER 1 tab once daily [Active]; - PMHx: 13:41 CAD; cardiac arrest; CHF; chronic kidney disease; Chronic pain; Diabetes - IDDM; High jg9 Cholesterol; Hypertension; Myocardial infarction; - PSHx: 13:44 4 heart stents; jg9 - Immunization history:: Adult Immunizations up to date. - Social history:: Smoking status: Patient denies any tobacco usage or history of. ROS: 14:02 Eyes: Negative for injury, pain, redness, and discharge, ENT: Negative for injury, jr8 pain, and discharge, Neck: Negative for injury, pain, and swelling, Cardiovascular: Negative for chest pain, palpitations, and edema, Respiratory: Negative for shortness of breath, cough, wheezing, and pleuritic chest pain, Abdomen/GI: Negative for abdominal pain, nausea, vomiting, diarrhea, and constipation, MS/Extremity: Negative for injury and deformity, Skin: Negative for injury, rash, and discoloration, Neuro: Negative for headache, weakness, numbness, tingling, and seizure. 14:02 Back: Positive for pain at rest, pain with movement, radiated pain. Exam: 14:02 Constitutional: This is a well developed, well nourished patient who is awake, alert, jr8 and in no acute distress. Neck: Trachea midline, no thyromegaly or masses palpated, and no cervical lymphadenopathy. Supple, full range of motion without nuchal rigidity, or vertebral point tenderness. No Meningismus. Cardiovascular: Regular rate and rhythm with a normal S1 and S2. No gallops, murmurs, or rubs. Normal PMI, no JVD. No pulse deficits. Respiratory: Lungs have equal breath sounds bilaterally, clear to auscultation and percussion. No rales, rhonchi or wheezes noted. No increased work of breathing, no retractions or nasal flaring. Abdomen/GI: Soft, non-tender, with normal bowel sounds. No distension or tympany. No guarding or rebound. No evidence of tenderness throughout. Skin: Warm, dry with normal turgor. Normal color with no rashes, no lesions, and no evidence of cellulitis. MS/ Extremity: Pulses equal, no cyanosis. Neurovascular intact. Full, normal range of motion. Neuro: Awake and alert, GCS 15, oriented to person, place, time, and situation. Cranial nerves II-XII grossly intact. Motor strength 5/5 in all extremities. Sensory grossly intact. 14:02 Back: pain, that is moderate, of the left low back, ROM is painful, normal spinal alignment noted, CVA tenderness, is absent, vertebral tenderness, is not appreciated. Vital Signs: 13:38 BP 137 / 88; Pulse 116; Resp 20 S; Temp 97.7(A); Pulse Ox 99% ; Weight 77.11 kg (R); jg9 Height 5 ft. 7 in. (170.18 cm); Pain 8/10; 14:15 BP 122 / 72; Pulse 116; Resp 20 S; Pulse Ox 98% ; jg9 13:38 Body Mass Index 26.63 (77.11 kg, 170.18 cm) jg9 MDM: 13:56 Patient medically screened. jr8 14:02 Data reviewed: vital signs, nurses notes, old medical records. Data interpreted: Pulse jr8 oximetry: on room air is 99 %. Interpretation: normal. 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 Administered Medications: 14:05 Drug: morphine 4 mg {Note: RASS-0.} Route: IVP; Site: right hand; j9 14:28 Follow up: Response: No adverse reaction; Pain is decreased; RASS: Alert and Calm (0) j9 14:05 Drug: Zofran (Ondansetron) 4 mg Route: IVP; Site: right hand; jg9 14:28 Follow up: Response: No adverse reaction j9 14:56 Drug: [place] (HYDROcodone-acetaminophen) (7.5 mg-325 mg) 1 tabs {Note: RASS-0.} Route: jg9 PO; 15:39 Follow up: Response: No adverse reaction; Pain is decreased j9 Disposition: 18:12 Co-signature as Attending Physician, Jose Ferguson MD. ma2 Disposition Summary: 03/13/22 14:39 Discharge Ordered Location: Home jr8 Problem: new jr8 Symptoms: have improved jr8 Condition: Stable jr8 Diagnosis - Low back pain jr8 - Radiculopathy, lumbar region jr8 Followup: jr8 - With: Franck Frausto, DO - When: 2 - 3 days - Reason: Recheck today's complaints, Continuance of care, Re-evaluation by your physician Discharge Instructions: - Discharge Summary Sheet jr8 - Acute Back Pain, Adult jr8 - Lumbosacral Radiculopathy jr8 - Musculoskeletal Pain jr8 Forms: - Medication Reconciliation Form jr8 - Thank You Letter jr8 - Antibiotic Education jr8 - Prescription Opioid Use jr8 Prescriptions: - Tylenol-Codeine #3 300 mg-30 mg Oral - take 1 tablet by ORAL route every 6 hours As needed; 20 tablet; Refills: 0, jr8 Product Selection Permitted Signatures: Karl Rothman PA PA jr8 Jose Ferguson MD MD ma2 Halle Bower RN RN jg9
--- NOTE | 2022-03-13 14:39 | ER ---
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 Coronavirus screen: Vaccine status: Patient reports receiving the 2nd dose of the covid vaccine. Moderna x2 booster scheduled for next month. Ebola Screen: Patient negative for fever greater than or equal to 101.5 degrees Fahrenheit, and additional compatible Ebola Virus Disease symptoms Patient denies exposure to infectious person. Patient denies travel to an Ebola-affected area in the 21 days before illness onset. Initial Sepsis Screen: Does the patient meet any 2 criteria? HR > 90 bpm. Does the patient have a suspected source of infection? No. Patient's initial sepsis screen is negative. Risk Assessment: Do you want to hurt yourself or someone else? Patient reports no desire to harm self or others. Onset of symptoms is unknown. 13:38 Method Of Arrival: EMS: [facility] 13:38 Acuity: LANCE 4 jg9 Triage Assessment: 13:43 General: Appears uncomfortable, Behavior is calm. Pain: Complains of pain in left jg9 leg-left hip/groin radiating down to left knee. Musculoskeletal: Circulation, motion, and sensation intact. Historical: - Allergies: 13:41 No Known Allergies; j9 - Home Meds: 13:41 aspirin 81 mg Oral TbEC 1 tab once daily [Active]; atorvastatin 40 mg Oral tab 1 tab 9 nightly [Active]; clopidogrel 75 mg Oral tab 1 tab once daily [Active]; donepezil 5 mg Oral tab 1 tab nightly [Active]; furosemide 20 mg Oral tab 1 tab once daily [Active]; isosorbide mononitrate 120 mg Oral Tb24 1 tab once daily [Active]; Januvia 50 mg Oral tab 1 tab once daily [Active]; potassium chloride 10 mEq Oral TbER 1 tab once daily [Active]; - PMHx: 13:41 CAD; cardiac arrest; CHF; chronic kidney disease; Chronic pain; Diabetes - IDDM; High jg9 Cholesterol; Hypertension; Myocardial infarction; - PSHx: 13:44 4 heart stents; jg9 - Immunization history:: Adult Immunizations up to date. - Social history:: Smoking status: Patient denies any tobacco usage or history of. Screenin:43 Abuse screen: Denies threats or abuse. Denies injuries from another. Nutritional jg9 screening: No deficits noted. Tuberculosis screening: No symptoms or risk factors identified. Fall Risk None identified. Assessment: 14:29 Reassessment: Patient and/or family updated on plan of care and expected duration. Pain jg9 level reassessed. Patient states symptoms have improved. Neuro: No deficits noted. 14:57 Reassessment: Patient daughter will pick him up \T\1800pm. Neuro: No deficits noted. jg9 Vital Signs: 13:38 BP 137 / 88; Pulse 116; Resp 20 S; Temp 97.7(A); Pulse Ox 99% ; Weight 77.11 kg (R); jg9 Height 5 ft. 7 in. (170.18 cm); Pain 8/10; 14:15 BP 122 / 72; Pulse 116; Resp 20 S; Pulse Ox 98% ; jg9 13:38 Body Mass Index 26.63 (77.11 kg, 170.18 cm) jg9 ED Course: 13:36 Patient arrived in ED. jg9 13:38 Halle Bower, HERBIE is Primary Nurse. jg9 13:38 Karl Rothman PA is PHCP. jr8 13:39 Jose Ferguson MD is Attending Physician. jr8 13:41 Triage completed. jg9 13:44 Arm band placed on right wrist. jg9 13:44 Patient has correct armband on for positive identification. Bed in low position. Call jg9 light in reach. Side rails up X 1. 14:39 Franck Frausto DO is Referral Physician. jr8 14:57 No provider procedures requiring assistance completed. jg9 16:12 IV discontinued. jg9 Administered Medications: 14:05 Drug: morphine 4 mg {Note: RASS-0.} Route: IVP; Site: right hand; jg9 14:28 Follow up: Response: No adverse reaction; Pain is decreased; RASS: Alert and Calm (0) jg9 14:05 Drug: Zofran (Ondansetron) 4 mg Route: IVP; Site: right hand; jg9 14:28 Follow up: Response: No adverse reaction jg9 14:56 Drug: [place] (HYDROcodone-acetaminophen) (7.5 mg-325 mg) 1 tabs {Note: RASS-0.} Route: jg9 PO; 15:39 Follow up: Response: No adverse reaction; Pain is decreased jg9 Outcome: 14:39 Discharge ordered by MD. rasmussen 16:06 Discharged to home via wheelchair, with family. jg9 16:06 Condition: stable 16:06 Discharge instructions given to patient, Instructed on discharge instructions, follow up and referral plans. Demonstrated understanding of instructions, follow-up care, medications, Prescriptions given X 1. 16:12 Patient left the ED. jg9 Signatures: Karl Rothman PA PA jr8 Halle Bower, RN RN jg9
[2022-03-13] MEDS ORDERED: HYDROCODONE/APAP 7.5/325 MG TAB ONE (14:58)
[2022-03-13 17:32] VITALS: TEMP 97.7
[2022-03-13 17:37] VITALS: BP 122/72; O2SAT 98
== END 2022-03-13 16:12 | disposition home or self-care (01) ==
LOC: ER 13:28
DX: M54.16 Radiculopathy, lumbar region (principal); E11.22 Type 2 diabetes mellitus with diabetic chronic kidney disease; I13.0 Hypertensive heart and chronic kidney disease with heart failure and stage 1 through stage 4 chronic kidney disease, or unspecified chronic kidney disease; N18.9 Chronic kidney disease, unspecified; I50.9 Heart failure, unspecified; Z95.818 Presence of other cardiac implants and grafts; Z79.82 Long term (current) use of aspirin
CPT/HCPCS: 96375; 96374; 99283; J2405

== ENCOUNTER 2022-03-25 15:06 | Emergency (ER) | payer OTHER ==
--- OUTSIDE RECORDS SUMMARY | 2022-03-25 15:20 | XMS REPORT | Continuity of Care Document ---
:1940 Author Organization [facility] t Address [address] [place] [address] Care Team Providers Name Role Phone Andres BRISCOE Primary Care Physician Unavailable Denny Attending Clinician [...] Date Expiration Date Stacy torres [facility] JABIER [id number] 2020 00:00:00 [facility] [id number] 2019 DUAL COMPLETE HMO 00:00:00 MEDICA[place] OF [place] [id number] 2018 00:00:00 Problems Condition Condition Condition Status Onset Resolution Last Treating Co mments Source Name Details Category Date Date Treatment Clinician Date Unstable Unstable Disease Active NPI:1 83 angina angina 5-07 [id number] 00:00: 00 ALBA (acute ALBA (acute Disease Active N PI:183 kidney kidney 4 7179283 injury) injury) 00:00: 00 Chest pain Chest pain Disease Active N PI:183 4- 5701428 00:00: 00 Chest pain Chest pain Disease Active N PI:183 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 4 12204 00:00: 00 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 00:00: and and 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 Active 2018-11 N PI:183 lobe lobe 1-06 0798062 pneumonia pneumonia 00:00: 00 PNA PNA Disease Active 2018-11 NPI:183 (pneumonia (pneumonia 0-25 90190 ) ) 00:00: 00 Acute on Acute on Disease Active 2018-11 NPI:1 83 chronic chronic 0-25 2984611 combined combined 00:00: systolic systolic 00 and and 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 Dyspnea Dyspnea Disease Active 2018-11 NPI:183 0-23 1452967 00:00: 00 CHF CHF Disease Active NPI:183 exacerbati exacerbati 2-17 13 83161 on on 00:00: 00 Essential Essential Disease Active NPI :183 hypertensi hypertensi 2-17 13 55144 on on 00:00: 00 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-17 436055 1 mellitus mellitus 00:00: without without 00 complicati complicati on, on, without without long-term long-term current current use of use of insulin insulin CHF CHF Disease Active NPI:183 exacerbati exacerbati 2-17 13 08542 on on 00:00: 00 Acute on Acute on Disease Active NPI:1 83 chronic chronic 1 6745970 systolic systolic 00:00: CHF CHF 00 (congestiv (congestiv e heart e heart failure) failure) Elevated Elevated Disease Active NPI:1 83 troponin I troponin I 12-12 13 50475 level level 00:00: 00 DE LA CRUZ DE LA CRUZ Disease Active NPI:183 (dyspnea (dyspnea 12-12 837706 1 on on 00:00: exertion) exertion) 00 Coronary Coronary Disease Active NPI:1 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 artery 1-27 9278856 disease disease 00:00: involving involving 00 nightmute nightmute coronary 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nightmute nightmute 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 1 9341619 kidney kidney 00:00: disease disease 00 Coronary Coronary Disease Active NPI:1 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 artery 1-27 8123014 disease disease 00:00: involving involving 00 nightmute nightmute coronary 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nightmute nightmute 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 pectoris NSTEMI NSTEMI Disease Active NPI:183 (non-ST (non-ST 1-26 6821185 elevated elevated 00:00: myocardial myocardial 00 infarction infarction ) ) NSTEMI NSTEMI Disease Active NPI:183 (non-ST (non-ST 1-26 9797230 elevated elevated 00:00: myocardial myocardial 00 infarction infarction ) ) 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 4-10 13 13074 athy athy 00:00: associated associated 00 with type with type 2 diabetes 2 diabetes mellitus mellitus 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 4-10 13 35466 athy athy 00:00: associated associated 00 with type with type 2 diabetes 2 diabetes mellitus mellitus Allergies, Adverse Reactions, Alerts Allergy Allergy Status Severity Reaction(s) Onset Inactive Treating Comm ents Source Name Type Date Date Clinician No Known DA Active [facility] Allergie 1-23 Clear s 00:00: Boyce 00 [facility] NO KNOWN Drug Active NPI:183 ALLERGIE Class [id number] S Social History Social Habit Start Date Stop Date Quantity Comments Source Exposure to Unable to assess NPI:067 [id number] SARS-CoV-2 (event) History of tobacco User of smokeless use tobacco Alcohol intake 2022-03-01 2022-03-01 Current NPI:[id number] 00:00:00 00:00:00 non-drinker of alcohol (finding) Cigarettes smoked 2018-12-11 2018-12-11 NPI:882 [id number] current (pack per 00:00:00 00:00:00 day) - Reported Cigarette 2018-12-11 2018-12-11 pack-years 00:00:00 00:00:00 Tobacco use and 2018-12-11 2018-12-11 Former user NPI:1831 [id number] exposure 00:00:00 00:00:00 Sex [birth year] At [birth year] NPI:[id number] 00:00:00 00:00:00 Smoking Status Start Date Stop Date Source Former smoker 2018-12-11 00:00:00 2018-12-11 00:00:00 NPI:1831 [id number] Medications Ordered Filled Start Stop Current Ordering Indication Dosage Frequency Signature Comments Components Source Medication Medication Date Date Medication? Clinician (SIG) Name Name FENTanyl PF No 25ug 25 mcg, [employer] I:183 (SUBLIMAZE 03-01 Intramuscu 13 67640 (PF)) 16:45: 16:23 lar, ONCE, injection 00 :00 1 dose, On 25 mcg 03/01/22 at 1145, Routine cyclobenzap No 10mg 10 mg, NPI :183 rine 03-01 Oral, [id number] (FLEXERIL) 14:00: 12:59 ONCE, 1 tablet 10 00 :00 dose, On mg 03/01/22 at 0900, Routine HYDROcodone 2021- No 1{tbl} 1 tablet, NPI:183 -acetaminop 03-01 Oral, [id number] 1 hen (NORCO 14:00: 12:59 ONCE, 1 5) 5-325 mg 00 :00 dose, On tablet 1 Sat tablet 03/01/22 at 0900, ADAMA dexamethaso 2021- No 10mg 10 mg, NPI :183 ne sod phos 03-01-16 Oral, [id number] 1 PF 14:00: 13:00 ONCE, 1 injection 00 :00 dose, On 10 mg 03/01/22 at 0900, 1 mL cyclobenzap Yes [id number] 10mg Take 1 NPI:183 rine 10 mg 16 tablet by 1318 781 tablet 00:00: mouth 3 00 (three) times daily as needed for Muscle Spasms. aspirin 81 2020-11- No [id number] 81mg Take 1 NPI:183 mg chewable 01-04 tablet by 13 63458 tablet 00:00: 05:59 mouth 00 :00 daily for 30 days. clopidogreL 2020-11- No [id number] 75mg Take 1 NPI:183 75 mg 01-04 tablet by [id number] tablet 00:00: 05:59 mouth 00 :00 daily for 30 days. furosemide 2020-11- No [id number] 20mg Take 1 NPI:183 20 mg 01-04 tablet by [id number] tablet 00:00: 05:59 mouth 00 :00 daily for 30 days. aspirin 81 2020-11- No [id number] 81mg Take 1 NPI:183 mg chewable 01-04 tablet by 13 07178 tablet 00:00: 05:59 mouth 00 :00 daily for 30 days. clopidogreL 2020-2021- No [id number] 75mg Take 1 NPI:183 75 mg 01-04 tablet by [id number] tablet 00:00: 05:59 mouth 00 :00 daily for 30 days. furosemide 2020-11- No [id number] 20mg Take 1 NPI:183 20 mg 01-04 tablet by [id number] tablet 00:00: 05:59 mouth 00 :00 daily for 30 days. aspirin 81 2020-11- No [id number] 81mg Take 1 NPI:183 mg chewable 01-04 tablet by 13 39416 tablet 00:00: 05:59 mouth 00 :00 daily for 30 days. clopidogreL 2020-11- No [id number] 75mg Take 1 NPI:183 75 mg 01-04 tablet by 3096066 tablet 00:00: 05:59 mouth 00 :00 daily for 30 days. furosemide 2020-11 2022- No [id number] 20mg Take 1 NPI:183 20 mg 01-04 tablet by [id number] tablet 00:00: 05:59 mouth 00 :00 daily for 30 days. trazodone 2020-11 Yes 50mg Take 50 mg [employer] I:183 HCl 2-18 by mouth 9617108 (TRAZODONE 18:25: every ORAL) 21 evening. nitroglycer 2020-11 Yes .4mg Take 0.4 [employer] I:183 in 2-18 mg by 0839094 (NITRO-TIME 18:25: mouth as ORAL) 21 needed for Other (chest pain every 5 minutes x 3 doses). potassium 2020-11 Yes 10meq Take 10 NPI: 183 chloride 10 2-18 mEq by 590650 1 mEq CR 18:25: mouth tablet 21 daily. donepeziL 5 2020-11 Yes 5mg Take 5 mg N PI:183 mg tablet 2-18 by mouth 260885 1 18:25: at 21 bedtime. atorvastati 2020-11 Yes 40mg Take 40 mg NPI:183 n 40 mg 2-18 by mouth [id number] tablet 18:25: at 21 bedtime. trazodone 2020-11 Yes 50mg Take 50 mg [employer] I:183 HCl 2-18 by mouth [id number] (TRAZODONE 18:25: every ORAL) 21 evening. nitroglycer 2020-11 Yes .4mg Take 0.4 [employer] I:183 in 2-18 mg by [id number] (NITRO-TIME 18:25: mouth as ORAL) 21 needed for Other (chest pain every 5 minutes x 3 doses). potassium 2020-11 Yes 10meq Take 10 NPI: 183 chloride 10 2-18 mEq by 587945 1 mEq CR 18:25: mouth tablet 21 daily. donepeziL 5 2020-11 Yes 5mg Take 5 mg N PI:183 mg tablet 2-18 by mouth 318787 1 18:25: at 21 bedtime. atorvastati 2020-11 Yes 40mg Take 40 mg NPI:183 n 40 mg 2-18 by mouth [id number] tablet 18:25: at 21 bedtime. trazodone 2020-11 Yes 50mg Take 50 mg [employer] I:183 HCl 2-18 by mouth [id number] (TRAZODONE 18:25: every ORAL) 21 evening. nitroglycer 2020-11 Yes .4mg Take 0.4 [employer] I:183 in 2-18 mg by 3264866 (NITRO-TIME 18:25: mouth as ORAL) 21 needed for Other (chest pain every 5 minutes x 3 doses). potassium 2020-11 Yes 10meq Take 10 NPI: 183 chloride 10 2-18 mEq by 537578 1 mEq CR 18:25: mouth tablet 21 daily. donepeziL 5 2020-11 Yes 5mg Take 5 mg N PI:183 mg tablet 2-18 by mouth [id number] 1 18:25: at 21 bedtime. atorvastati 2020-11 Yes 40mg Take 40 mg NPI:183 n 40 mg 2-18 by mouth [id number] tablet 18:25: at 21 bedtime. trazodone 2020-11 Yes 50mg Take 50 mg [employer] I:183 HCl 2-18 by mouth [id number] (TRAZODONE 18:25: every ORAL) 21 evening. nitroglycer 2020-11 Yes .4mg Take 0.4 [employer] I:183 in 2-18 mg by 3628841 (NITRO-TIME 18:25: mouth as ORAL) 21 needed for Other (chest pain every 5 minutes x 3 doses). potassium 2020-11 Yes 10meq Take 10 NPI: 183 chloride 10 2-18 mEq by 099924 1 mEq CR 18:25: mouth tablet 21 daily. donepeziL 5 2020-11 Yes 5mg Take 5 mg N PI:183 mg tablet 2-18 by mouth [id number] 1 18:25: at 21 bedtime. atorvastati 2020-11 Yes 40mg Take 40 mg NPI:183 n 40 mg 2-18 by mouth [id number] tablet 18:25: at 21 bedtime. metoprolol 2020-11 Yes 37.5mg 37.5 mg, N PI:183 succinate 2-18 Oral, BID, 1318 781 XL (TOPROL 14:30: First dose XL) tablet 00 (after 37.5 mg last modificati on) on 11/02/21 at 0830, Until Discontinu ed, Routine isosorbide 2020-11 No 120mg Take 120 N PI:183 mononitrate 2-18 12-18 mg by 086897 1 120 mg 24 14:14: 00:00 mouth hr tablet 53 :00 daily. LISINOPRIL 2020-11 No 5mg Take 5 mg N PI:183 ORAL 2-18 12-18 by mouth [id number] 14:14: 00:00 daily. 53 :00 isosorbide 2020-11 Yes 60mg 60 mg, NPI:1 83 mononitrate 2-18 Oral, BID, 13 68841 (IMDUR) 24 14:00: First dose hr tablet 00 (after 60 mg last modificati on) on 11/02/21 at 0800, Until Discontinu ed, Routine QUEtiapine 2020-11 Yes [id number] 25mg Take 1 NPI:183 25 mg 2-18 tablet by [id number] tablet 00:00: mouth at 00 bedtime as needed (agitation /insomnia) . QUEtiapine 2020-11 Yes [id number] 25mg Take 1 NPI:183 25 mg 2-18 tablet by 3698073 tablet 00:00: mouth at 00 bedtime as needed (agitation /insomnia) . QUEtiapine 2020-11 Yes [id number] 25mg Take 1 NPI:183 25 mg 2-18 tablet by [id number] tablet 00:00: mouth at 00 bedtime as needed (agitation /insomnia) . QUEtiapine 2020-11 Yes [id number] 25mg Take 1 NPI:183 25 mg 2-18 tablet by [id number] tablet 00:00: mouth at 00 bedtime as needed (agitation /insomnia) . isosorbide 2020-11- No [id number] 60mg Take 1 NPI:183 mononitrate 2-18 01-18 tablet by 13 54021 60 mg 24 hr 00:00: 05:59 mouth 2 tablet 00 :00 (two) times daily for 30 days. metoprolol 2020-11- No [id number] 37.5mg Take 1.5 NPI:183 succinate 2-18 01-18 tablets by 131 8781 XL 25 mg 24 00:00: 05:59 mouth 2 hr tablet 00 :00 (two) times daily for 30 days. isosorbide 2020-11- No [id number] 60mg Take 1 NPI:183 mononitrate 2-18 -18 tablet by 13 54744 60 mg 24 hr 00:00: 05:59 mouth 2 tablet 00 :00 (two) times daily for 30 days. metoprolol 2020-11- No [id number] 37.5mg Take 1.5 NPI:183 succinate 2-18 -18 tablets by 131 8781 XL 25 mg 24 00:00: 05:59 mouth 2 hr tablet 00 :00 (two) times daily for 30 days. isosorbide 2020-11- No [id number] 60mg Take 1 NPI:183 mononitrate 2-18 - tablet by 13 08758 60 mg 24 hr 00:00: 05:59 mouth 2 tablet 00 :00 (two) times daily for 30 days. metoprolol 2020-11- No [id number] 37.5mg Take 1.5 NPI:183 succinate 2-18 -18 tablets by 131 8781 XL 25 mg 24 00:00: 05:59 mouth 2 hr tablet 00 :00 (two) times daily for 30 days. aspirin 2020-11 Yes 81mg 81 mg, NPI:183 chewable 2-17 Oral, [id number] tablet 81 15:00: DAILY, mg 00 First dose on Thu11/01/21 at 0900, Until Discontinu ed, Routine furosemide 2020-11 Yes 20mg 20 mg, NPI:1 83 (LASIX) 2-17 Oral, [id number] tablet 20 14:30: DAILY, mg 00 First dose on Thu11/01/21 at 0830, Until Discontinu ed, Routine metoprolol 2020-11- No 25mg 25 mg, NPI: 183 succinate 2-17 12-18 Oral, BID, 131 8781 XL (TOPROL 14:30: 14:17 First dose XL) tablet 00 :36 on Thu 25 mg 11/01/21 at 0830, Until Discontinu ed, Routine QUEtiapine 2020-11 Yes 25mg 25 mg, NPI:1 83 (SEROQUEL) 2-17 Oral, [id number] tablet 25 09:22: QHSPRN, mg 01 Starting on Thu11/01/21 at 0322, Until Discontinu ed, Routine, agitation/ insomnia donepeziL 2020-11 Yes 5mg 5 mg, NPI:183 (ARICEPT) 2-17 Oral, QHS, 1318 781 tablet 5 mg 03:00: First dose 00 on Madhavi 10/31/21 at 2100, Until Discontinu ed, Routine atorvastati 2020-11 Yes 40mg 40 mg, NPI: 183 n (LIPITOR) 2-17 Oral, QHS, 13 25138 tablet 40 03:00: First dose mg 00 on Madhavi 10/31/21 at 2100, Until Discontinu ed, Routine clopidogreL 2020-11 Yes 75mg 75 mg, NPI: 183 (PLAVIX) 2-16 Oral, [id number] tablet 75 23:30: DAILY, mg 00 First dose on Madhavi 10/31/21 at 1730, Until Discontinu ed, Routine sulfur 2020-11- No [id number] 5mL 5 mL, NPI:1 83 hexafluorid 01-01 Intravenou 1 901369 e microsphr 17:00: 17:00 s, ONCE, 1 (LUMASON) 00 :00 dose, On injection 5 Madhavi mL 10/31/21 at 1100, Routine
city council member approving Restricted medication : MEGGAN CAMARA isosorbide 2020-11- No 120mg 120 mg, [employer] TRA[employer]EE I:183 mononitrate -31 10- Oral, 599535 1 (IMDUR) 24 15:00: 14:16 DAILY, hr tablet 00 :38 First dose 120 mg on Madhavi 10/31/21 at 0900, Until Discontinu ed, Routine Sliding 2020-11 Yes Subcutaneo NPI: 183 Scale -16 us, AC+HS, [id number] Insulin-Reg 13:30: First dose ular + Fsbg 00 on Madhavi Testing 10/31/21 at 0730, Until Discontinu ed, Routine enoxaparin 2020-11- No 1mg/kg 80 mg NPI :183 (LOVENOX) -31 10- (rounded 92136 81 injection 09:00: 14:17 from 78 mg 80 mg 00 :35 = 1 mg/kg ?78 kg), Subcutaneo us, Q24H, First dose on Madhavi 10/31/21 at 0300, Until Discontinu ed, Routine aspirin 2020-11- No 325mg 325 mg, NPI:1 83 tablet 325 01-01 Oral, [id number] mg 08:45: 08:15 ONCE, 1 00 :00 dose, On Madhavi 10/31/21 at 0245, Routine glucagon 2020-11 Yes 1mg 1 mg, NPI:183 (GLUCAGEN - Intramuscu 1318 781 DIAGNOSTIC 08:16: lar, PRN, KIT) 15 Starting injection 1 on Madhavi mg 10/31/21 at 0216, Until Discontinu ed, ADAMA, Blood Glucose < or = 70 mg/dL and patient is unable to swallow or has mental changes. dextrose 50 2020-11 Yes 25mL 25 mL, NPI: 183 % in water 01-01 Slow IV 172559 1 (D50W) 08:16: Push, PRN, injection 14 Starting 25 mL on Madhavi 10/31/21 at 0216, Until Discontinu ed, ADAMA, Blood Glucose < or = 70 mg/dL and patient is unable to swallow or has mental status changes. morpHINE 2020-11 No 2mg 2 mg, Slow [employer] I:183 injection 2 01-0117 IV Push, 131 8781 mg 07:36: 05:31 Q4HPRN, 09 :07 Starting on Madhavi 10/31/21 at 0136, Until Madhavi 10/31/21 at 2331, Routine, Pain (scale 7-10) nitroglycer 2020-11 Yes .4mg 0.4 mg, NPI :183 in 01-01 Sublingual [id number] (NITROSTAT) 05:32: , Q5MIN sublingual 22 PRN, tablet 0.4 Starting mg on Thu10/30/21 at 2332, Until Discontinu ed, Routine, Chest pain ondansetron 2020-11 Yes 4mg 4 mg, Slow NPI:183 (ZOFRAN -16 IV Push, [id number] (PF)) 05:32: Q6HPRN, injection 4 10 Starting mg on Thu10/30/21 at 2332, Until Discontinu ed, Routine, Nausea and Vomiting (N/V) acetaminoph 2021-1 Yes 650mg 650 mg, [employer] TRA[employer] I:183 en 2-16 Oral, [id number] (TYLENOL) 05:31: Q6HPRN, tablet 650 56 Starting mg on Thu10/30/21 at 2331, Until Discontinu ed, Routine, Pain (scale 1-3) acetaminoph 2020-11 Yes 4647 1{tbl} 1 tablet, NPI:183 en-codeine 2-16 Oral, [id number] (TYLENOL 05:29: Q6HPRN, #3) 300-30 29 Starting mg tablet 1 on Thu tablet 10/30/21 at 2329, Until Discontinu ed, Routine, Pain (scale 4-6), Pain (scale 7-10) sodium 2020-11 Yes 5mL 5 mL, NPI:183 chloride 2-16 Intravenou 20620 81 (NS) 01:21: s, PRN, injection 5 02 Starting mL on Thu10/30/21 at 1921, Until Discontinu ed, Routine, IV line flushing morpHINE 2020- No 4mg 4 mg, Slow [employer] I:183 injection 4 6- 06-10 IV Push, 131 8781 mg 23:15: 22:23 ONCE, 1 00 :00 dose, Madhavi 04/25/21 at 1815, STAT acetaminoph 2020- No 1{tbl} 1 tablet, NPI:183 en-codeine 6-10 06-10 Oral, [id number] (TYLENOL 19:00: 17:52 ONCE, 1 #3) 300-30 00 :00 dose, Madhavi mg tablet 1 04/25/21 at tablet 1400, ADAMA cyclobenzap 2020- No 10mg 10 mg, NPI :183 rine 6-10 06-10 Oral, ONCE [id number] (FLEXERIL) 19:00: 17:52 NOW, 1 tablet 10 00 :00 dose, Madhavi mg 04/25/21 at 1400, ADAMA cyclobenzap Yes [id number] 5mg Take 1 NPI:183 rine 5 mg 6-10 tablet by [id number] 81 tablet 00:00: mouth 3 00 (three) times daily. cyclobenzap Yes [id number] 5mg Take 1 NPI:183 rine 5 mg 6-10 [place] 46422 81 tablet 00:00: mouth 3 00 (three) times daily. cyclobenzap Yes [id number] 5mg Take 1 NPI:183 rine 5 mg 6-10 [place] 83315 81 tablet 00:00: mouth 3 00 (three) times daily. acetaminoph Yes 4647 1{tbl} Take 1 [employer] I:183 en-codeine 6-10 tablet by 1318 781 300-30 mg 00:00: mouth tablet 00 every 6 (six) hours as needed for Pain (scale 4-6). Indication s: acute pain, left sided low back pain cyclobenzap Yes [id number] 5mg Take 1 NPI:183 rine 5 mg 6-10 tablet by 68136 81 tablet 00:00: mouth 3 00 (three) times daily. acetaminoph Yes 4647 1{tbl} Take 1 [employer] I:183 en-codeine 6-10 tablet by 1318 781 300-30 mg 00:00: mouth tablet 00 every 6 (six) hours as needed for Pain (scale 4-6). Indication s: acute pain, left sided low back pain cyclobenzap Yes [id number] 5mg Take 1 NPI:183 rine 5 mg 6-10 [place] 20116 81 tablet 00:00: mouth 3 00 (three) times daily. cyclobenzap 2021- No [id number] 5mg Take 1 NPI:183 rine 5 mg 6-10 04-16 tablet by 1318 781 tablet 00:00: 00:00 mouth 3 00 :00 (three) times daily. acetaminoph 2021- No 4647 1{tbl} Take 1 N PI:183 en-codeine 6-10 12-18 tablet by 131 8781 300-30 mg 00:00: 00:00 mouth tablet 00 :00 every 6 (six) hours as needed for Pain (scale 4-6). Indication s: acute pain, left sided low back pain acetaminoph Yes 4647 1{tbl} Take 1 [employer] I:183 en-codeine 8-11 tablet by 1318 781 (TYLENOL-CO 00:00: mouth DEINE #3) 00 every 6 300-30 mg (six) tablet hours as needed for Pain (scale 7-10). Indication s: acute pain acetaminoph 2020-0 Yes 4647 1{tbl} Take 1 [employer] TRA[employer] I:183 en-codeine 8-11 tablet by 1318 781 (TYLENOL-CO 00:00: mouth DEINE #3) 00 every 6 300-30 mg (six) tablet hours as needed for Pain (scale 7-10). Indication s: acute pain acetaminoph 2020-0 Yes 4647 1{tbl} Take 1 [employer] TRA[employer]EE I:183 en-codeine 8-11 tablet by 1318 781 (TYLENOL-CO 00:00: mouth DEINE #3) 00 every 6 300-30 mg (six) tablet hours as needed for Pain (scale 7-10). Indication s: acute pain acetaminoph 2020-0 Yes 4647 1{tbl} Take 1 [employer] TRA[employer]EE I:183 en-codeine 8-11 tablet by 1318 781 (TYLENOL-CO 00:00: mouth DEINE #3) 00 every 6 300-30 mg (six) tablet hours as needed for Pain (scale 7-10). Indication s: acute pain acetaminoph 2020-0 Yes 4647 1{tbl} Take 1 [employer] TRA[employer]EE I:183 en-codeine 8-11 tablet by 1318 781 (TYLENOL-CO 00:00: mouth DEINE #3) 00 every 6 300-30 mg (six) tablet hours as needed for Pain (scale 7-10). Indication s: acute pain acetaminoph 2020-0 2020- No 1000mg 1,000 mg, NPI:183 en 05-24 Oral, [id number] (TYLENOL) 16:00: 14:49 ONCE, 1 tablet 00 :00 dose, Madhavi 1,000 mg 05/24/20 at 1100, ADAMA traMADol 50 2020-0 2020- No 4647 50mg Take 1 NPI :183 mg tablet 05-24 tablet by 1318 781 00:00: 04:59 mouth 00 :00 every 8 (eight) hours as needed for Pain (scale 4-6) for up to 5 days. Indication s: acute pain insulin 2020-0 Yes 30U 30 Units, NPI:1 83 glargine 03-24 Subcutaneo 31381 81 (LANTUS 14:00: us, DAILY, U-100) 00 First dose injection on Sat 30 Units 03/24/20 at 0900, Until Discontinu ed clopidogreL 2020-0 Yes 75mg 75 mg, NPI: 183 (PLAVIX) 5- Oral, [id number] tablet 75 14:00: DAILY, mg 00 First dose on 03/24/20 at 0900, Until Discontinu ed, Routine insulin 2020-0 Yes 30U 30 Units, NPI:1 83 glargine 03-24 Subcutaneo 65621 81 (LANTUS 14:00: us, DAILY, U-100) 00 First dose injection on Sat 30 Units 03/24/20 at 0900, Until Discontinu ed clopidogreL 2020-0 Yes 75mg 75 mg, NPI: 183 (PLAVIX) - Oral, [id number] tablet 75 14:00: DAILY, mg 00 First dose on 03/24/20 at 0900, Until Discontinu ed, Routine MULTIVITAMI 2020-0 2020- No Take by N PI:183 N ORAL - 05-08 mouth. [id number] 03:38: 00:00 54 :00 MULTIVITAMI 2020-0 Yes Take by [employer] TRA[employer]EE I:183 N ORAL 5- mouth. [id number] 02:01: 35 atorvastati 2020-0 Yes 40mg 40 mg, NPI: 183 n (LIPITOR) 5-09 Oral, Q, 13 37364 tablet 40 02:00: First dose mg 00 on Thu03/23/20 at 2100, Until Discontinu ed, Routine atorvastati 2020-0 Yes 40mg 40 mg, NPI: 183 n (LIPITOR) 5-09 Oral, Q, 13 76404 tablet 40 02:00: First dose mg 00 on Thu03/23/20 at 2100, Until Discontinu ed, Routine aspirin 81 2020-0 Yes [id number] 81mg Take 1 N PI:183 mg chewable 5-09 tablet by 131 8781 tablet 00:00: mouth 00 daily with breakfast. furosemide 2020-0 Yes [id number] 20mg Take 1 N PI:183 20 mg 5-09 tablet by [id number] tablet 00:00: mouth 00 daily. aspirin 81 2020-0 Yes [id number] 81mg Take 1 N PI:183 mg chewable 5-09 tablet by 131 8781 tablet 00:00: mouth 00 daily with breakfast. furosemide 2020-0 Yes [id number] 20mg Take 1 N PI:183 20 mg 5-09 tablet by 4475653 tablet 00:00: mouth 00 daily. aspirin 81 2020-0 Yes [id number] 81mg Take 1 N PI:183 mg chewable 5-09 tablet by 131 8781 tablet 00:00: mouth 00 daily with breakfast. furosemide 2020-0 Yes [id number] 20mg Take 1 N PI:183 20 mg 5-09 tablet by 9633668 tablet 00:00: mouth 00 daily. aspirin 81 2020-0 Yes [id number] 81mg Take 1 N PI:183 mg chewable 5-09 tablet by 131 8781 tablet 00:00: mouth 00 daily with breakfast. furosemide 2020-0 Yes [id number] 20mg Take 1 N PI:183 20 mg 5-09 tablet by 3911617 tablet 00:00: mouth 00 daily. aspirin 81 2020-0 Yes [id number] 81mg Take 1 N PI:183 mg chewable 5-09 tablet by 131 8781 tablet 00:00: mouth 00 daily with breakfast. furosemide 2020-0 Yes [id number] 20mg Take 1 N PI:183 20 mg 5-09 tablet by 5887903 tablet 00:00: mouth 00 daily. aspirin 81 2020-0 Yes [id number] 81mg Take 1 N PI:183 mg chewable 5-09 tablet by 131 8781 tablet 00:00: mouth 00 daily with breakfast. furosemide 2020-0 Yes [id number] 20mg Take 1 N PI:183 20 mg 5-09 tablet by 1615101 tablet 00:00: mouth 00 daily. aspirin 81 2020-0 Yes [id number] 81mg Take 1 N PI:183 mg chewable 5-09 tablet by 131 8781 tablet 00:00: mouth 00 daily with breakfast. furosemide 2020-0 Yes [id number] 20mg Take 1 N PI:183 20 mg 5-09 tablet by 2116640 tablet 00:00: mouth 00 daily. aspirin 81 2020-0 Yes [id number] 81mg Take 1 N PI:183 mg chewable 5-09 tablet by 131 8781 tablet 00:00: mouth 00 daily with breakfast. furosemide 2020-0 Yes [id number] 20mg Take 1 N PI:183 20 mg 5-09 tablet by 8647754 tablet 00:00: mouth 00 daily. aspirin 81 2020-0 Yes [id number] 81mg Take 1 N PI:183 mg chewable 5-09 tablet by 131 8781 tablet 00:00: mouth 00 daily with breakfast. furosemide 2020-0 Yes [id number] 20mg Take 1 N PI:183 20 mg 5-09 tablet by 4234438 tablet 00:00: mouth 00 daily. aspirin 81 2020-0 2021- No [id number] 81mg Take 1 NPI:183 mg chewable 5-07 28-18 tablet by 13 90916 tablet 00:00: 00:00 mouth 00 :00 daily with breakfast. furosemide 2020-0 1- No [id number] 20mg Take 1 NPI:183 20 mg 5-09 -18 tablet by 9405054 tablet 00:00: 00:00 mouth 00 :00 daily. isosorbide 2020-0 2020- No [id number] 90mg Take 3 NPI:183 mononitrate 5-09 05-08 tablets by 1 223779 30 mg 24 hr 00:00: 00:00 mouth tablet 00 :00 daily. isosorbide 2020-0 2020- No [id number] 90mg Take 3 NPI:183 mononitrate 5-09 05-08 tablets by 1 447603 30 mg 24 hr 00:00: 00:00 mouth tablet 00 :00 daily. maalox/lido 2020-0 2020- No 5mL 5 mL, NPI: 183 sydni 2 5-08 05-08 Oral, [id number] %viscous 20:45: 20:56 ONCE, 1 1:1 00 :00 dose, Fri suspension 03/23/20 at (COMPOUNDED 1545, ) Routine maalox/lido 2020-0 2020- No 5mL 5 mL, NPI: 183 sydni 2 5-08 05-08 Oral, [id number] %viscous 20:45: 20:56 ONCE, 1 1:1 00 :00 dose, Fri suspension 03/23/20 at (COMPOUNDED 1545, ) Routine acetaminoph 2020-0 Yes 875mg 900 mg NPI :183 en 5-08 (rounded [id number] (TYLENOL) 20:00: from 875 tablet 900 00 mg), Oral, mg Q8H, First dose on Thu03/23/20 at 1500, Until Discontinu ed, Routine acetaminoph 2020-0 Yes 875mg 900 mg NPI :183 en 5-08 (rounded [id number] (TYLENOL) 20:00: from 875 tablet 900 00 mg), Oral, mg Q8H, First dose on Thu03/23/20 at 1500, Until Discontinu ed, Routine lidocaine 2020-0 2020- No 1{patch 1 Patch, NPI:183 (LIDODERM) 03-23 } Topical, 1318 781 5 % (700 19:46: 08:56 Administer mg/patch) 00 :00 over 12 patch 1 Hours, Patch ONCE, 1 dose, Thu03/23/20 at 1500, Routine lidocaine 2020-0 2020- No 1{patch 1 Patch, NPI:183 (LIDODERM) 03-23 } Topical, 1318 781 5 % (700 19:46: 08:56 Administer mg/patch) 00 :00 over 12 patch 1 Hours, Patch ONCE, 1 dose, Thu03/23/20 at 1500, Routine perflutren 2020-0 2020- No 2mL 2 mL, IV [employer] I:183 lipid 03-23- Push, [id number] microsphere 15:30: 14:00 ONCE, 1 s 00 :00 dose, Thu (DEFINITY) 03/23/20 at injection 2 1030, mL Routine perflutren 2020-0 2020- No 2mL 2 mL, IV [employer] I:183 lipid 03-23-08 Push, [id number] microsphere 15:30: 14:00 ONCE, 1 s 00 :00 dose, Thu (DEFINITY) 03/23/20 at injection 2 1030, mL Routine isosorbide 2020-0 Yes 90mg 90 mg, NPI:1 83 mononitrate 5-08 Oral, [id number] (IMDUR) 24 14:30: DAILY, hr tablet 00 First dose 90 mg on Thu03/23/20 at 0930, Until Discontinu ed, Routine isosorbide 2020-0 Yes 90mg 90 mg, NPI:1 83 mononitrate 5-08 Oral, [id number] (IMDUR) 24 14:30: DAILY, hr tablet 00 First dose 90 mg on Thu03/23/20 at 0930, Until Discontinu ed, Routine vitamin 2020-0 Yes 1000ug 1,000 mcg, [employer] I:183 B-12 5-08 Oral, [id number] (CYANOCOBAL 14:00: DAILY, RAZA) 00 First dose tablet on Thu 1,000 mcg 03/23/20 at 0900, Until Discontinu ed, Routine KCL 2020-0 Yes 10meq 10 mEq, NPI:183 (KLOR-CON 5-08 Oral, [id number] M10) tablet 14:00: DAILY, 10 mEq 00 First dose on Thu03/23/20 at 0900, Until Discontinu ed, Routine magnesium 2020-0 Yes 400mg 400 mg, NPI: 183 oxide 5-08 Oral, [id number] (MAG-OX 14:00: DAILY, 400) tablet 00 First dose 400 mg on Thu03/23/20 at 0900, Until Discontinu ed furosemide 2020-0 Yes 20mg 20 mg, NPI:1 83 (LASIX) 5-08 Oral, [id number] tablet 20 14:00: DAILY, mg 00 First dose on Thu03/23/20 at 0900, Until Discontinu ed, Routine donepezil 2020-0 Yes 5mg 5 mg, NPI:183 (ARICEPT) 5-08 Oral, [id number] tablet 5 mg 14:00: DAILY, 00 First dose on Thu03/23/20 at 0900, Until Discontinu ed, Routine vitamin 2020-0 Yes 1000ug 1,000 mcg, [employer] I:183 B-12 5-08 Oral, [id number] (CYANOCOBAL 14:00: DAILY, RAZA) 00 First dose tablet on Thu 1,000 mcg 03/23/20 at 0900, Until Discontinu ed, Routine KCL 2020-0 Yes 10meq 10 mEq, NPI:183 (KLOR-CON 5-08 Oral, [id number] M10) tablet 14:00: DAILY, 10 mEq 00 First dose on Thu03/23/20 at 0900, Until Discontinu ed, Routine magnesium 2020-0 Yes 400mg 400 mg, NPI: 183 oxide 5-08 Oral, [id number] (MAG-OX 14:00: DAILY, 400) tablet 00 First dose 400 mg on Thu03/23/20 at 0900, Until Discontinu ed furosemide 2020-0 Yes 20mg 20 mg, NPI:1 83 (LASIX) 5-08 Oral, [id number] tablet 20 14:00: DAILY, mg 00 First dose on Thu03/23/20 at 0900, Until Discontinu ed, Routine donepezil 2020-0 Yes 5mg 5 mg, NPI:183 (ARICEPT) 5-08 Oral, [id number] tablet 5 mg 14:00: DAILY, 00 First dose on Thu03/23/20 at 0900, Until Discontinu ed, Routine Sliding 2020-0 Yes Subcutaneo NPI: 183 Scale 5-08 us, TID [id number] Insulin - 13:00: MEALS+HS, Aspart 00 First dose (NOVOLOG) + on Thu Fsbg 03/23/20 at Testing 0800, Until Discontinu ed, Routine ranolazine 2020-0 Yes 1000mg 1,000 mg, NPI:183 (RANEXA) 12 5-08 Oral, [id number] hr tablet 13:00: Q12H, 1,000 mg 00 First dose on Thu03/23/20 at 0800, Until Discontinu ed, Routine metoprolol 2020-0 Yes 25mg 25 mg, NPI:1 83 succinate 5-08 Oral, BID, 1318 781 XL (TOPROL 13:00: First dose XL) tablet 00 on Thu 25 mg 03/23/20 at 0800, Until Discontinu ed, Routine aspirin 2020-0 Yes 81mg 81 mg, NPI:183 chewable 5-08 Oral, QAM [id number] 1 tablet 81 13:00: WITH mg 00 BREAKFAST, First dose on Thu03/23/20 at 0800, Until Discontinu ed, Routine Sliding 2020-0 Yes Subcutaneo NPI: 183 Scale 5-08 us, TID [id number] Insulin - 13:00: MEALS+HS, Aspart 00 First dose (NOVOLOG) + on Thu Fsbg 03/23/20 at Testing 0800, Until Discontinu ed, Routine ranolazine 2020-0 Yes 1000mg 1,000 mg, NPI:183 (RANEXA) 12 5-08 Oral, [id number] hr tablet 13:00: Q12H, 1,000 mg 00 First dose on Thu03/23/20 at 0800, Until Discontinu ed, Routine metoprolol 2020-0 Yes 25mg 25 mg, NPI:1 83 succinate 5-08 Oral, BID, [id number] 781 XL (TOPROL 13:00: First dose XL) tablet 00 on Thu 25 mg 03/23/20 at 0800, Until Discontinu ed, Routine aspirin 2020-0 Yes 81mg 81 mg, NPI:183 chewable 5-08 Oral, QAM [id number] 1 tablet 81 13:00: WITH mg 00 BREAKFAST, First dose on Thu03/23/20 at 0800, Until Discontinu ed, Routine clopidogreL 2020-0 2020- No 300mg 300 mg, N PI:183 (PLAVIX) 03-23- Oral, [id number] tablet 300 08:30: 07:48 ONCE, 1 mg 00 :00 dose, Thu03/23/20 at 0330, Routine clopidogreL 2020-0 2020- No 300mg 300 mg, N PI:183 (PLAVIX) 03-23- Oral, [id number] tablet 300 08:30: 07:48 ONCE, 1 mg 00 :00 dose, Thu03/23/20 at 0330, Routine morpHINE 2020-0 Yes 2mg 2 mg, Slow NPI :183 injection 2 -08 IV Push, 1318 781 mg 07:59: Q4HPRN, 14 Starting Thu03/23/20 at 0259, Until Discontinu ed, Routine, Chest pain morpHINE 2020-0 Yes 2mg 2 mg, Slow NPI :183 injection 2 -08 IV Push, 1318 781 mg 07:59: Q4HPRN, 14 Starting Thu03/23/20 at 0259, Until Discontinu ed, Routine, Chest pain magnesium 2020-0 2020- No 2g 2 g, IV NPI: 183 sulfate in 03-23 Piggyback, 13 97375 water 2 07:45: 07:49 ONCE, 1 gram/50 mL 00 :00 dose, Fri (4 %) 03/23/20 at infusion 2 0245, g Routine KCL 2020-0 2020- No 40meq 40 mEq, NPI:183 (KLOR-CON 03-23- Oral, [id number] M20) tablet 07:45: 07:27 ONCE, 1 40 mEq 00 :00 dose, 03/23/20 at 0245, Routine magnesium 2020-0 2020- No 2g 2 g, IV NPI: 183 sulfate in 03-23 Piggyback, 13 61199 water 2 07:45: 07:49 ONCE, 1 gram/50 mL 00 :00 dose, Fri (4 %) 03/23/20 at infusion 2 0245, g Routine KCL 2020-0 2020- No 40meq 40 mEq, NPI:183 (KLOR-CON 5-08 05-08 Oral, [id number] M20) tablet 07:45: 07:27 ONCE, 1 40 mEq 00 :00 dose, Thu03/23/20 at 0245, Routine heparin 2020-0 Yes 12U/kg/ 12 NPI:183 25,000 5-08 h Units/kg/h [id number] unit/250 mL 05:15: r ?78 kg (Premixed 00 (9.36 Bag) in D5W mL/hr), IV weight Infusion, based CONTINUOUS dosing ACS , Starting protocol Thu03/23/20 at 0015, Until Discontinu ed heparin 2020-0 Yes 12U/kg/ 12 NPI:183 25,000 5-08 h Units/kg/h [id number] unit/250 mL 05:15: r ?78 kg (Premixed 00 (9.36 Bag) in D5W mL/hr), IV weight Infusion, based CONTINUOUS dosing ACS , Starting protocol Thu03/23/20 at 0015, Until Discontinu ed heparin 2020-0 2020- No 4000U 4,000 NPI:183 1000 5-08 05-08 Units, IV [id number] unit/mL 04:15: 04:42 Push, injection 00 :00 ONCE, 1 Soln 4,000 dose, Madhavi Units 03/22/20 at 2315, Routine heparin 2020-0 2020- No 4000U 4,000 NPI:183 1000 5-08 05-08 Units, IV [id number] unit/mL 04:15: 04:42 Push, injection 00 :00 ONCE, 1 Soln 4,000 dose, Madhavi Units 03/22/20 at 2315, Routine heparin 2020-0 Yes 3000U FOR NPI:183 (1,000 5-08 REBOLUSING [id number] unit/mL, 10 04:04: , Starting mL vial) 18 Madhavi 20 for at 2304, Rebolusing Until Discontinu ed, Routine
Dosing based on aPTT testing parameters (refer to continuous heparin drip order).
heparin 2020-0 Yes 3000U FOR NPI:183 (1,000 5-08 REBOLUSING [id number] unit/mL, 10 04:04: , Starting mL vial) 18 Madhavi 03/22/20 for at 2304, Rebolusing Until Discontinu ed, Routine
Dosing based on aPTT testing parameters (refer to continuous heparin drip order).
memantine-d 2020-0 2020- No 1{capsu Take 1 NPI:183 onepezil 5-08 05-07 le} capsule by 1318 781 (NAMZARIC) 04:01: 00:00 mouth 28-10 mg 03 :00 daily. CSpX folic 2020-0 2020- No Take by NPI:183 acid/vit B 5-08 05-07 mouth. [id number] 1 complex and 04:01: 00:00 C (B 03 :00 COMPLEX-VIT RAZA C-FOLIC ACID ORAL) Cholecalcif 2020-0 2020- No Take by N PI:183 ann, - 05-07 mouth. [id number] Vitamin D3, 04:01: 00:00 2,000 unit 03 :00 capsule thiamine 2020-0 2020- No 100mg Take 100 NPI :183 (VITAMIN 5-08 05-07 mg by [id number] B-1) 100 mg 04:01: 00:00 mouth tablet 03 :00 daily. NaCl 0.9% 2020-0 2020- No 10mL Inject 10 [employer] I:183 (NS) Soln 5-08 05-07 mL [id number] 10 mL with 04:01: 00:00 intravenou sodium 03 :00 sly once chloride now. 2.5 mEq/mL SolP 17.125 mEq memantine-d 2020-0 2020- No 1{capsu Take 1 NPI:183 onepezil 5-08 05-07 le} capsule by 1318 781 (NAMZARIC) 04:01: 00:00 mouth 28-10 mg 03 :00 daily. CSpX folic 2020-0 2020- No Take by NPI:183 acid/vit B 5- 05-07 mouth. [id number] 1 complex and 04:01: 00:00 C (B 03 :00 COMPLEX-VIT RAZA C-FOLIC ACID ORAL) Cholecalcif 2020-0 2020- No Take by N PI:183 ann, 5-08 05-07 mouth. [id number] Vitamin D3, 04:01: 00:00 2,000 unit 03 :00 capsule thiamine 2020-0 2020- No 100mg Take 100 NPI :183 (VITAMIN 5-08 05-07 mg by [id number] B-1) 100 mg 04:01: 00:00 mouth tablet 03 :00 daily. NaCl 0.9% 2020-0 2020- No 10mL Inject 10 [employer] I:183 (NS) Soln 03-23- mL [id number] 10 mL with 04:01: 00:00 intravenou sodium 03 :00 sly once chloride now. 2.5 mEq/mL SolP 17.125 mEq acetaminoph 2020-0 Yes 650mg 650 mg, [employer] I:183 en 03-23 Oral, [id number] (TYLENOL) 02:51: Q6HPRN, tablet 650 29 Starting mg Madhavi 03/22/20 at 2151, Until Discontinu ed, Routine, Pain (scale 1-3) acetaminoph 2020-0 Yes 650mg 650 mg, [employer] I:183 en 03-23 Oral, [id number] (TYLENOL) 02:51: Q6HPRN, tablet 650 29 Starting mg Madhavi 03/22/20 at 2151, Until Discontinu ed, Routine, Pain (scale 1-3) nitroglycer 2020-0 Yes .4mg 0.4 mg, NPI :183 in 03-23 Sublingual [id number] (NITROSTAT) 02:38: , Q5MIN sublingual 00 PRN, 3 tablet 0.4 doses, mg Starting Madhavi 03/22/20 at 2138, Until Discontinu ed, ADAMA, Chest pain nitroglycer 2020-0 Yes .4mg 0.4 mg, NPI :183 in 03-23 Sublingual [id number] (NITROSTAT) 02:38: , Q5MIN sublingual 00 PRN, 3 tablet 0.4 doses, mg Starting Madhavi 03/22/20 at 2138, Until Discontinu ed, ADAMA, Chest pain aspirin 2020-0 2020- No 324mg 324 mg, NPI:1 83 chewable 03-23- Oral, [id number] tablet 324 02:37: 02:51 ONCE, 1 mg 00 :00 dose, Madhavi 03/22/20 at 2145, ADAMA aspirin 2020-0 2020- No 324mg 324 mg, NPI:1 83 chewable - 05-08 Oral, [id number] tablet 324 02:37: 02:51 ONCE, 1 mg 00 :00 dose, Madhavi 03/22/20 at 2145, ADAMA isosorbide 2020-0 Yes [id number] 90mg Take 1.5 NPI:183 mononitrate 5-08 tablets by 13 64541 60 mg 24 hr 00:00: mouth tablet 00 daily. isosorbide 2020-0 Yes [id number] 90mg Take 1.5 NPI:183 mononitrate 5-08 tablets by 13 48982 60 mg 24 hr 00:00: mouth tablet 00 daily. isosorbide 2020-0 Yes [id number] 90mg Take 1.5 NPI:183 mononitrate 5-08 tablets by 13 71612 60 mg 24 hr 00:00: mouth tablet 00 daily. isosorbide 2020-0 Yes [id number] 90mg Take 1.5 NPI:183 mononitrate 5-08 tablets by 13 24668 60 mg 24 hr 00:00: mouth tablet 00 daily. isosorbide 2020-0 Yes [id number] 90mg Take 1.5 NPI:183 mononitrate 5-08 tablets by 13 32762 60 mg 24 hr 00:00: mouth tablet 00 daily. isosorbide 2020-0 Yes [id number] 90mg Take 1.5 NPI:183 mononitrate 5-08 tablets by 13 00174 60 mg 24 hr 00:00: mouth tablet 00 daily. isosorbide 2020-0 Yes [id number] 90mg Take 1.5 NPI:183 mononitrate 5-08 tablets by 13 06922 60 mg 24 hr 00:00: mouth tablet 00 daily. isosorbide 2020-0 Yes [id number] 90mg Take 1.5 NPI:183 mononitrate 5-08 tablets by 13 01059 60 mg 24 hr 00:00: mouth tablet 00 daily. isosorbide 2020-0 Yes [id number] 90mg Take 1.5 NPI:183 mononitrate 5-08 tablets by 13 70605 60 mg 24 hr 00:00: mouth tablet 00 daily. isosorbide 2020-0 2021- No [id number] 90mg Take 1.5 NPI:183 mononitrate 5-08 12-18 tablets by 1 872235 60 mg 24 hr 00:00: 00:00 mouth tablet 00 :00 daily. acetaminoph 2020-0 2020- No [id number] 975mg Take 3 NPI:183 en 325 mg 5-08 05-19 tablets by 131 8781 tablet 00:00: 04:59 mouth 00 :00 every 8 (eight) hours for 10 days. acetaminoph 2020-0 2020- No [id number] 975mg Take 3 NPI:183 en 325 mg 5-08 05-19 tablets by 131 8781 tablet 00:00: 04:59 mouth 00 :00 every 8 (eight) hours for 10 days. acetaminoph 2020-0 2020- No [id number] 975mg Take 3 NPI:183 en 325 mg 5-08 05-19 tablets by 131 8781 tablet 00:00: 04:59 mouth 00 :00 every 8 (eight) hours for 10 days. acetaminoph 2020-0 2020- No [id number] 975mg Take 3 NPI:183 en 325 mg 5-08 05-19 tablets by 131 8781 tablet 00:00: 04:59 mouth 00 :00 every 8 (eight) hours for 10 days. acetaminoph 2020-0 2020- No [id number] 975mg Take 3 NPI:183 en 325 mg 5-08 05-19 tablets by 131 8781 tablet 00:00: 04:59 mouth 00 :00 every 8 (eight) hours for 10 days. lidocaine 5 2019-0 2020- No [id number] 1{patch Apply 1 NPI:183 % (700 5-08 05-09 } Patch to [id number] mg/patch) 00:00: 04:59 area(s) patch 00 :00 once now for 1 dose. lidocaine 5 2020-0 2020- No [id number] 1{patch Apply 1 NPI:183 % (700 5-08 05-09 } Patch to 6412946 mg/patch) 00:00: 04:59 area(s) patch 00 :00 once now for 1 dose. lidocaine 5 2020-0 2020- No [id number] 1{patch Apply 1 NPI:183 % (700 5-08 05-08 } Patch to 1819288 mg/patch) 00:00: 00:00 area(s) patch 00 :00 once now for 1 dose. lidocaine 5 2020-0 2020- No [id number] 1{patch Apply 1 NPI:183 % (700 5-08 05-08 } Patch to [id number] mg/patch) 00:00: 00:00 area(s) patch 00 :00 once now for 1 dose. glipiZIDE 2020-0 Yes 5mg 5 mg, NPI:183 (GLUCOTROL) 4-23 Oral, [id number] tablet 5 mg 14:00: DAILY, 00 First dose on Thu03/08/20 at 0900, Until Discontinu ed, Routine spironolact 2020-0 2020- No [id number] 12.5mg Take 0.5 NPI:183 one 25 mg 4-23 05-24 tablets by 131 8781 tablet 00:00: 04:59 mouth 00 :00 daily for 30 days. spironolact 2020-0 2020- No [id number] 12.5mg Take 0.5 NPI:183 one 25 mg 4-23 05-24 tablets by 131 8781 tablet 00:00: 04:59 mouth 00 :00 daily for 30 days. spironolact 2020-0 2020- No [id number] 12.5mg Take 0.5 NPI:183 one 25 mg 4-23 05-24 tablets by 131 8781 tablet 00:00: 04:59 mouth 00 :00 daily for 30 days. spironolact 2020-0 2020- No [id number] 12.5mg Take 0.5 NPI:183 one 25 mg 4-23 05-07 tablets by 131 8781 tablet 00:00: 00:00 mouth 00 :00 daily for 30 days. spironolact 2020-0 2020- No [id number] 12.5mg Take 0.5 NPI:183 one 25 mg 4-23 05-07 tablets by 131 8781 tablet 00:00: 00:00 mouth 00 :00 daily for 30 days. folic 2020-0 Yes Take by NPI:183 acid/vit B 4-22 mouth. [id number] complex and 23:46: C (B 10 COMPLEX-VIT RAZA C-FOLIC ACID ORAL) Cholecalcif 2020-0 Yes Take by [employer] I:183 ann, 4-22 mouth. [id number] Vitamin D3, 23:46: 2,000 unit 10 capsule MULTIVITAMI 2020-0 Yes Take by [employer] I:183 N ORAL 4-22 mouth. [id number] 23:46: 10 thiamine 2020-0 Yes 100mg Take 100 NPI: 183 (VITAMIN 4-22 mg by [id number] B-1) 100 mg 23:46: mouth tablet 10 daily. NaCl 0.9% 2020-0 Yes 10mL Inject 10 NPI :183 (NS) Soln 4-22 mL [id number] 10 mL with 23:46: intravenou sodium 10 sly once chloride now. 2.5 mEq/mL SolP 17.125 mEq memantine-d 2020-0 Yes 1{capsu Take 1 N PI:183 onepezil 4-22 [place]} [place] [id number] 81 (NAMZARIC) 23:46: mouth 28-10 mg 10 daily. CSpX folic 2020-0 Yes Take by NPI:183 acid/vit B 4-22 mouth. [id number] complex and 23:46: C (B 10 COMPLEX-VIT RAZA C-FOLIC ACID ORAL) Cholecalcif 2020-0 Yes Take by [employer] I:183 ann, 4-22 mouth. [id number] Vitamin D3, 23:46: 2,000 unit 10 capsule MULTIVITAMI 2020-0 Yes Take by [employer] I:183 N ORAL 4-22 mouth. [id number] 23:46: 10 thiamine 2020-0 Yes 100mg Take 100 NPI: 183 (VITAMIN 4-22 mg by [id number] B-1) 100 mg 23:46: mouth tablet 10 daily. NaCl 0.9% 2020-0 Yes 10mL Inject 10 NPI :183 (NS) Soln 4-22 mL [id number] 10 mL with 23:46: intravenou sodium 10 sly once chloride now. 2.5 mEq/mL SolP 17.125 mEq memantine-d 2020-0 Yes 1{capsu Take 1 N PI:183 onepezil 4-22 [place]} [place] [address] 81 (NAMZARIC) 23:46: mouth 28-10 mg 10 daily. CSpX folic 2020-0 Yes Take by NPI:183 acid/vit B 4-22 mouth. 6401627 complex and 23:46: C (B 10 COMPLEX-VIT RAZA C-FOLIC ACID ORAL) Cholecalcif 2020-0 Yes Take by [employer] I:183 ann, 4-22 mouth. [id number] Vitamin D3, 23:46: 2,000 unit 10 capsule MULTIVITAMI 2020-0 Yes Take by [employer] I:183 N ORAL 4-22 mouth. [id number] 23:46: 10 thiamine 2020-0 Yes 100mg Take 100 NPI: 183 (VITAMIN 4-22 mg by [id number] B-1) 100 mg 23:46: mouth tablet 10 daily. NaCl 0.9% 2020-0 Yes 10mL Inject 10 NPI :183 (NS) Soln 4-22 mL [id number] 10 mL with 23:46: intravenou sodium 10 sly once chloride now. 2.5 mEq/mL SolP 17.125 mEq memantine-d 2020-0 Yes 1{capsu Take 1 N PI:183 onepezil 4-22 [place] [address] 81 (NAMZARIC) 23:46: mouth 28-10 mg 10 daily. CSpX metoprolol 2019-0 2020- No 12.5mg Take 12.5 NPI:183 tartrate 4-22 04-22 mg by [id number] 12.5 mg 20:15: 00:00 mouth 2 29 :00 (two) times daily. aspirin 81 2019-0 2020- No 81mg Take 81 mg NPI:183 mg chewable -07 03-22 by mouth 131 8781 tablet 20:15: 00:00 daily. 29 :00 atorvastati 2019-0 2020- No 40mg Take 40 mg NPI:183 n 40 mg -07 03-22 by mouth [id number] tablet 20:15: 00:00 at 29 :00 bedtime. temazepam 2020-0 Yes 15mg 15 mg, NPI:18 3 (RESTORIL) 4-22 Oral, [id number] capsule 15 01:55: QHSPRN, mg 38 Starting Thu03/06/20 at 2055, Until Discontinu ed, Routine, Insomnia Insulin 2020-0 Yes [id number] 10U inject 10 NPI:183 Glargine 4-22 Units [id number] 100 unit/mL 00:00: under the (3 mL) 00 skin at injection bedtime. temazepam 2020-0 Yes [id number] 15mg Take 1 [employer] I:183 15 mg 4-22 capsule by 1699465 capsule 00:00: mouth at 00 bedtime as needed for Insomnia. furosemide 2020-0 Yes [id number] 40mg Take 1 NPI:183 40 mg 4-22 tablet by [id number] tablet 00:00: mouth 00 every morning and evening. Magnesium 2020-0 Yes [id number] 400mg Take 400 NPI:183 Oxide 420 4-22 mg by 5692049 mg Tab 00:00: mouth 00 daily. potassium 2020-0 Yes [id number] 20meq Take 20 NPI:183 chloride 20 4-22 mEq by 903270 1 mEq packet 00:00: mouth 00 daily. Take with lasix in the morning isosorbide 2020-0 Yes [id number] 15mg Take 0.5 NPI:183 mononitrate 4-22 tablets by 13 44301 30 mg 24 hr 00:00: mouth tablet 00 daily. Hold if systolic blood pressure less than 120 Insulin 2020-0 Yes [id number] 10U inject 10 NPI:183 Glargine 4-22 Units [id number] 100 unit/mL 00:00: under the (3 mL) 00 skin at injection bedtime. temazepam 2020-0 Yes [id number] 15mg Take 1 [employer] I:183 15 mg 4-22 capsule by 9314065 capsule 00:00: mouth at 00 bedtime as needed for Insomnia. furosemide 2020-0 Yes [id number] 40mg Take 1 NPI:183 40 mg 4-22 tablet by 9992270 tablet 00:00: mouth 00 every morning and evening. Magnesium 2020-0 Yes [id number] 400mg Take 400 NPI:183 Oxide 420 4-22 mg by 9723368 mg Tab 00:00: mouth 00 daily. potassium 2020-0 Yes [id number] 20meq Take 20 NPI:183 chloride 20 4-22 mEq by 118555 1 mEq packet 00:00: mouth 00 daily. Take with lasix in the morning isosorbide 2020-0 Yes [id number] 15mg Take 0.5 NPI:183 mononitrate 4-22 tablets by 13 46825 30 mg 24 hr 00:00: mouth tablet 00 daily. Hold if systolic blood pressure less than 120 Insulin 2020-0 Yes [id number] 10U inject 10 NPI:183 Glargine 4-22 Units [id number] 100 unit/mL 00:00: under the (3 mL) 00 skin at injection bedtime. temazepam 2020-0 Yes [id number] 15mg Take 1 [employer] I:183 15 mg 4-22 capsule by 9137177 capsule 00:00: mouth at 00 bedtime as needed for Insomnia. furosemide 2020-0 Yes [id number] 40mg Take 1 NPI:183 40 mg 4-22 tablet by 5406949 tablet 00:00: mouth 00 every morning and evening. Magnesium 2020-0 Yes [id number] 400mg Take 400 NPI:183 Oxide 420 4-22 mg by 9459251 mg Tab 00:00: mouth 00 daily. potassium 2020-0 Yes [id number] 20meq Take 20 NPI:183 chloride 20 4-22 mEq by 019555 1 mEq packet 00:00: mouth 00 daily. Take with lasix in the morning isosorbide 2019-0 Yes [id number] 15mg Take 0.5 NPI:183 mononitrate 4-22 tablets by 13 00440 30 mg 24 hr 00:00: mouth tablet 00 daily. Hold if systolic blood pressure less than 120 Insulin 2019-0 Yes [id number] 10U inject 10 NPI:183 Glargine 4-22 Units [id number] 100 unit/mL 00:00: under the (3 mL) 00 skin at injection bedtime. Magnesium 2020-0 Yes [id number] 400mg Take 400 NPI:183 Oxide 420 4-22 mg by 4578209 mg Tab 00:00: mouth 00 daily. vitamin 2019- 2020- No [id number] 1000ug Take 1 NPI:183 B-12 1,000 4-22 07-22 tablet by 131 8781 mcg tablet 00:00: 04:59 mouth 00 :00 daily for 90 days. vitamin 2019-0 2020- No [id number] 1000ug Take 1 NPI:183 B-12 1,000 4-22 07-22 tablet by 131 8781 mcg tablet 00:00: 04:59 mouth 00 :00 daily for 90 days. vitamin 2019-0 2020- No [id number] 1000ug Take 1 NPI:183 B-12 1,000 4-22 07-22 tablet by 131 8781 mcg tablet 00:00: 04:59 mouth 00 :00 daily for 90 days. vitamin 2019-0 2020- No [id number] 1000ug Take 1 NPI:183 B-12 1,000 4-22 07-22 tablet by 131 8781 mcg tablet 00:00: 04:59 mouth 00 :00 daily for 90 days. glipiZIDE 5 2019- 2020- No [id number] 2.5mg Take 0.5 NPI:183 mg tablet - 05-23 tablets by 131 8781 00:00: 04:59 mouth 2 00 :00 (two) times daily before breakfast and dinner for 30 days. metoprolol 2019-0 2020- No [id number] 25mg Take 1 NPI:183 succinate 4-22 05-23 tablet by 1318 781 XL 25 mg 24 00:00: 04:59 mouth 2 hr tablet 00 :00 (two) times daily for 30 days. OLANZapine 2020-0 2020- No [id number] 2.5mg Take 1 NPI:183 2.5 mg 4-22 05-23 tablet by 7654829 tablet 00:00: 04:59 mouth at 00 :00 bedtime for 30 days. ranolazine 2020-0 2020- No [id number] 1000mg Take 2 NPI:183 500 mg 12 4-22 05-23 tablets by 131 8781 hr tablet 00:00: 04:59 mouth 00 :00 every 12 (twelve) hours for 30 days. aspirin 81 2019- 2020- No [id number] 81mg Take 1 NPI:183 mg chewable 4-22 05-23 tablet by 13 35553 tablet 00:00: 04:59 mouth 00 :00 daily with breakfast for 30 days. atorvastati 2019- 2020- No [id number] 40mg Take 1 NPI:183 n 40 mg 4-22 05-23 tablet by 413883 1 tablet 00:00: 04:59 mouth at 00 :00 bedtime for 30 days. glipiZIDE 5 2019- 2020- No [id number] 2.5mg Take 0.5 NPI:183 mg tablet 4-22 05-23 tablets by 131 8781 00:00: 04:59 mouth 2 00 :00 (two) times daily before breakfast and dinner for 30 days. metoprolol 2019-0 2020- No [id number] 25mg Take 1 NPI:183 succinate 4-22 05-23 tablet by 1318 781 XL 25 mg 24 00:00: 04:59 mouth 2 hr tablet 00 :00 (two) times daily for 30 days. OLANZapine 2020-0 2020- No [id number] 2.5mg Take 1 NPI:183 2.5 mg 4-22 05-23 tablet by 0055835 tablet 00:00: 04:59 mouth at 00 :00 bedtime for 30 days. ranolazine 2020-0 2020- No [id number] 1000mg Take 2 NPI:[email or web address] 500 mg 12 4-22 05-23 tablets by [id number] hr tablet 00:00: 04:59 mouth 00 :00 every 12 (twelve) hours for 30 days. aspirin 81 2020-0 2020- No [id number] 81mg Take 1 [email or web address]:[email or web address] mg chewable 4-22 05-23 tablet by 13 [id number] tablet 00:00: 04:59 mouth 00 :00 daily with breakfast for 30 days. atorvastati 2019- 2020- No [id number] 40mg Take 1 [email or web address]:[email or web address] n 40 mg 4-22 05-23 tablet by [id number] 1 tablet 00:00: 04:59 mouth at 00 :00 bedtime for 30 days. glipiZIDE 5 2020- No [id number] 2.5mg Take 0.5 NPI:[email or web address] mg tablet 4-22 05-23 tablets by [id number] 00:00: 04:59 mouth 2 00 :00 (two) times daily before breakfast and dinner for 30 days. metoprolol 2020- No [id number] 25mg Take 1 NPI:[email or web address] succinate 4-22 05-23 tablet by [id number] XL 25 mg 24 00:00: 04:59 mouth 2 hr tablet 00 :00 (two) times daily for 30 days. OLANZapine 2020- No [id number] 2.5mg Take 1 NPI:[email or web address] 2.5 mg 4-22 05-23 tablet by [id number] tablet 00:00: 04:59 mouth at 00 :00 bedtime for 30 days. ranolazine 2020- No [id number] 1000mg Take 2 NPI:[email or web address] 500 mg 12 4-22 05-23 tablets by [id number] hr tablet 00:00: 04:59 mouth 00 :00 every 12 (twelve) hours for 30 days. aspirin 81 2019- 2020- No [id number] 81mg Take 1 [email or web address]:[email or web address] mg chewable 4-22 05-23 tablet by 13 [id number] tablet 00:00: 04:59 mouth 00 :00 daily with breakfast for 30 days. atorvastati 2020- No [id number] 40mg Take 1 NPI:[email or web address] n 40 mg 4-22 05-23 tablet by [id number] 1 tablet 00:00: 04:59 mouth at 00 :00 bedtime for 30 days. glipiZIDE 5 2019- 2020- No [id number] 2.5mg Take 0.5 NPI:[email or web address] mg tablet 4-22 05-23 tablets by [id number] 00:00: 04:59 mouth 2 00 :00 (two) times daily before breakfast and dinner for 30 days. metoprolol 2020- No [id number] 25mg Take 1 NPI:[email or web address] succinate 4-22 05-23 tablet by [id number] XL 25 mg 24 00:00: 04:59 mouth 2 hr tablet 00 :00 (two) times daily for 30 days. ranolazine 2019- No [id number] 1000mg Take 2 NPI:[email or web address] 500 mg 12 - 05-23 tablets by [id number] hr tablet 00:00: 04:59 mouth 00 :00 every 12 (twelve) hours for 30 days. atorvastati 2019- No [id number] 40mg Take 1 NPI:[email or web address] n 40 mg 4- 05-23 tablet by [id number] 1 tablet 00:00: 04:59 mouth at 00 :00 bedtime for 30 days. furosemide 2019- No [id number] 40mg Take 1 NPI:183 40 mg 4-22 05-08 tablet by [id number] tablet 00:00: 00:00 mouth 00 :00 every morning and evening. aspirin 81 2019- No [id number] 81mg Take 1 NPI:183 mg chewable - 05-08 tablet by 13 [id number] tablet 00:00: 00:00 mouth 00 :00 daily with breakfast for 30 days. isosorbide 2019- No [id number] 15mg Take 0.5 NPI:183 mononitrate - 05-08 tablets by 1 [id number] 30 mg 24 hr 00:00: 00:00 mouth tablet 00 :00 daily. Hold if systolic blood pressure less than 120 Insulin 2019- No [id number] 10U inject 10 NPI:183 Glargine -22 05-08 Units [id number] 100 unit/mL 00:00: 00:00 under the (3 mL) 00 :00 skin at injection bedtime. glipiZIDE 5 2019- No [id number] 2.5mg Take 0.5 NPI:183 mg tablet - 05-08 tablets by [id number] 00:00: 00:00 mouth 2 00 :00 (two) times daily before breakfast and dinner for 30 days. metoprolol 2019- No [id number] 25mg Take 1 NPI:183 succinate 4-22 05-08 tablet by [id number] XL 25 mg 24 00:00: 00:00 mouth 2 hr tablet 00 :00 (two) times daily for 30 days. ranolazine 2019-2019- No [id number] 1000mg Take 2 NPI:183 500 mg 12 4-22 05-08 tablets by 131 8781 hr tablet 00:00: 00:00 mouth 00 :00 every 12 (twelve) hours for 30 days. furosemide 2019-2019- No [id number] 40mg Take 1 NPI:183 40 mg 4-22 05-08 tablet by [id number] tablet 00:00: 00:00 mouth 00 :00 every morning and evening. aspirin 81 2019- No [id number] 81mg Take 1 NPI:183 mg chewable 4-22 05-08 tablet by 13 [id number] tablet 00:00: 00:00 mouth 00 :00 daily with breakfast for 30 days. atorvastati 2019-2019- No [id number] 40mg Take 1 NPI:183 n 40 mg 4-22 05-08 tablet by [id number] 1 tablet 00:00: 00:00 mouth at 00 :00 bedtime for 30 days. Magnesium 2019- No [id number] 400mg Take 400 NPI:183 Oxide 420 4-22 05-08 mg by [id number] mg Tab 00:00: 00:00 mouth 00 :00 daily. vitamin 2019-2019- No [id number] 1000ug Take 1 NPI:183 B-12 1,000 4-22 05-08 tablet by 131 8781 mcg tablet 00:00: 00:00 mouth 00 :00 daily for 90 days. isosorbide 2019- No [id number] 15mg Take 0.5 NPI:183 mononitrate 4-22 05-08 tablets by 1 [id number] 30 mg 24 hr 00:00: 00:00 mouth tablet 00 :00 daily. Hold if systolic blood pressure less than 120 OLANZapine 2019-2019- No [id number] 2.5mg Take 1 NPI:183 2.5 mg 4-22 05-07 tablet by [id number] tablet 00:00: 00:00 mouth at 00 :00 bedtime for 30 days. temazepam 2019- No [id number] 15mg Take 1 N PI:183 15 mg 4-22 05-07 capsule by [id number] capsule 00:00: 00:00 mouth at 00 :00 bedtime as needed for Insomnia. potassium 2019- No [id number] 20meq Take 20 NPI:183 chloride 20 03-07 05-[place] [address] 81 mEq packet 00:00: 00:00 mouth 00 :00 daily. Take with lasix in the morning OLANZapine 2019- No [id number] 2.5mg Take 1 NPI:183 2.5 mg 03-07-07 tablet by [id number] tablet 00:00: 00:00 mouth at 00 :00 bedtime for 30 days. temazepam 2019- No [id number] 15mg Take 1 N PI:183 15 mg 03-07- capsule by [id number] capsule 00:00: 00:00 mouth at 00 :00 bedtime as needed for Insomnia. potassium 2019- No [id number] 20meq Take 20 NPI:183 chloride 20 03-07 05-07 [place] [address] 81 mEq packet 00:00: 00:00 mouth 00 :00 daily. Take with lasix in the morning isosorbide 2019- No 60mg 60 mg, NPI: 183 mononitrate 03-06 04-21 Oral, [id number] 1 (IMDUR) 24 14:00: 13:43 DAILY, hr tablet 00 :56 First dose 60 mg on Thu03/06/20 at 0900, Until Discontinu ed, Routine OLANZapine Yes 2.5mg 2.5 mg, NPI :183 (ZyPREXA) - Oral, QHS, 1318 781 tablet 2.5 02:00: First dose mg 00 on Thu03/05/20 at 2100, Until Discontinu ed, Routine insulin Yes 10U 10 Units, NPI:1 83 glargine - Subcutaneo [id number] 81 (LANTUS 02:00: us, QHS, U-100) 00 First dose injection on Thu 10 Units 03/05/20 at 2100, Until Discontinu ed, Routine donepezil 2019-0 Yes 5mg 5 mg, NPI:183 (ARICEPT) - Oral, QHS, 1318 781 tablet 5 mg 02:00: First dose 00 on Thu03/05/20 at 2100, Until Discontinu ed, Routine atorvastati 2019-0 Yes 40mg 40 mg, NPI: 183 n (LIPITOR) 4-21 Oral, QHS, 13 63119 tablet 40 02:00: First dose mg 00 on Thu03/05/20 at 2100, Until Discontinu ed, Routine isosorbide 2020-0 2020- No 30mg 30 mg, NPI: 183 mononitrate 03-05-20 Oral, [id number] 1 (IMDUR) 24 15:30: 15:21 ONCE, 1 hr tablet 00 :00 dose, Mon 30 mg 03/05/20 at 1030, Routine spironolact 2020-0 Yes 12.5mg 12.5 mg, NPI:183 one -20 Oral, [id number] (ALDACTONE) 14:00: DAILY, tablet 12.5 00 First dose mg on Thu03/05/20 at 0900, Until Discontinu ed, Routine memantine 2019-0 Yes 10mg 10 mg, NPI:18 3 (NAMENDA) -20 Oral, [id number] tablet 10 14:00: DAILY, mg 00 First dose on Thu03/05/20 at 0900, Until Discontinu ed, Routine
city council member approving Restricted medication : [facility] lisinopril 2019-0 2020- No 5mg 5 mg, NPI:1 83 (PRINIVIL,Z 03-05 Oral, [id number] 1 ESTRIL) 14:00: 13:44 DAILY, tablet 5 mg 00 :01 First dose on Thu03/05/20 at 0900, Until Discontinu ed, Routine isosorbide 2020-0 2020- No 30mg 30 mg, NPI: 183 mononitrate 03-05- Oral, [id number] 1 (IMDUR) 24 14:00: 14:20 DAILY, hr tablet 00 :04 First dose 30 mg on Thu03/05/20 at 0900, Until Discontinu ed, Routine ranolazine 2020-0 Yes 500mg 500 mg, NPI :183 (RANEXA) 12 -20 Oral, [id number] hr tablet 13:00: Q12H, 500 mg 00 First dose on Thu03/05/20 at 0800, Until Discontinu ed, Routine metoprolol 2020-0 Yes 25mg 25 mg, NPI:1 83 succinate 4-20 Oral, BID, 1318 781 XL (TOPROL 13:00: First dose XL) tablet 00 on Thu mg 03/05/20 at 0800, Until Discontinu ed, Routine magnesium 2020-0 Yes 400mg 400 mg, NPI: 183 oxide 4-20 Oral, BID, [id number] (MAG-OX 13:00: First dose 400) tablet 00 on Thu 400 mg 03/05/20 at 0800, Until Discontinu ed, Routine aspirin 2020-0 Yes 81mg 81 mg, NPI:183 chewable 4-20 Oral, QAM [id number] 1 tablet 81 13:00: WITH mg 00 BREAKFAST, First dose on Thu03/05/20 at 0800, Until Discontinu ed, Routine Sliding 2020-0 Yes Subcutaneo NPI: 183 Scale 4-20 us, AC+HS, [id number] Insulin-Reg 12:30: First dose ular + Fsbg 00 on Mon Testing 03/05/20 at 0730, Until Discontinu ed, Routine glipiZIDE 2020-0 2020- No 5mg 5 mg, NPI:18 3 (GLUCOTROL) - 04-22 Oral, [id number] 1 tablet 5 mg 12:30: 19:41 BIDAC, 00 :44 First dose on Thu03/05/20 at 0730, Until Discontinu ed, Routine glucagon 2020-0 Yes 1mg 1 mg, NPI:183 (GLUCAGEN -20 Intramuscu [id number] 781 DIAGNOSTIC 03:02: lar, PRN, KIT) 42 Starting injection 1 Sun mg 03/04/20 at 2202, Until Discontinu ed, ADAMA, Blood Glucose < or = 70 mg/dL and patient is unable to swallow or has mental changes. dextrose 50 2020-0 Yes 25mL 25 mL, NPI: 183 % in water 4-20 Slow IV [id number] 1 (D50W) 03:02: Push, PRN, injection 42 Starting 25 mL 03/04/20 at 2202, Until Discontinu ed, ADAMA, Blood Glucose < or = 70 mg/dL and patient is unable to swallow or has mental status changes. furosemide 2020-0 Yes 40mg 40 mg, NPI:1 83 (LASIX) 4-20 Oral, [id number] tablet 40 03:00: QAM+PM, mg 00 First dose on 03/04/20 at 2200, Until Discontinu ed, Routine cyanocobala 2020-0 Yes 1000ug 1,000 mcg, NPI:183 min 4-20 Subcutaneo [id number] (VITAMIN 03:00: us, Q24H, B12) 00 First dose injection on Sun 1,000 mcg 03/04/20 at 2200, Until Discontinu ed, Routine heparin 2020-0 Yes 5000U 5,000 NPI:183 (porcine) 4-20 Units, [id number] injection 03:00: Subcutaneo 5,000 Units 00 us, Q8H, First dose on 03/04/20 at 2200, Until Discontinu ed, Routine ondansetron 2020-0 Yes 4mg 4 mg, Slow NPI:183 (ZOFRAN 4-20 IV Push, [id number] (PF)) 02:34: Q6HPRN, injection 4 40 Starting mg 03/04/20 at 2134, Until Discontinu ed, Routine, Nausea and Vomiting (N/V) traMADol 2020-0 2020- No 50mg 50 mg, NPI:18 3 (ULTRAM) 4-20 04-22 Oral, [id number] tablet 50 02:34: 02:33 Q8HPRN, mg 23 :23 Starting 03/04/20 at 2134, Until 03/06/20 at 2133, Routine, Pain (scale 4-6) acetaminoph 2020-0 Yes 650mg 650 mg, [employer] I:183 en 4-20 Oral, [id number] (TYLENOL) 02:34: Q6HPRN, tablet 650 20 Starting mg 03/04/20 at 2134, Until Discontinu ed, Routine, Pain (scale 1-3) lisinopril 2020-0 Yes [id number] 5mg Take 1 NPI:183 5 mg tablet 4-18 tablet by 131 [id number] 00:00: mouth 00 daily. isosorbide 2020-0 Yes [id number] 30mg Take 1 NPI:183 mononitrate 4-18 tablet by 131 8781 30 mg 24 hr 00:00: mouth tablet 00 daily. lisinopril 2020-0 Yes [id number] 5mg Take 1 NPI:183 5 mg tablet 4-18 tablet by 131 8781 00:00: mouth 00 daily. isosorbide 2020-0 Yes [id number] 30mg Take 1 NPI:183 mononitrate 4-18 tablet by 131 8781 30 mg 24 hr 00:00: mouth tablet 00 daily. lisinopril 2020-0 2020- No [id number] 5mg Take 1 NPI:183 5 mg tablet -18 - tablet by 13 90990 00:00: 00:00 mouth 00 :00 daily. isosorbide 2020-0 2020- No [id number] 30mg Take 1 NPI:183 mononitrate 4-18 - tablet by 13 [id number] 30 mg 24 hr 00:00: 00:00 mouth tablet 00 :00 daily. memantine-d 2020-0 Yes 1{capsu Take 1 N PI:183 onepezil 4-17 [place]} [place] [address] 81 (NAMZARIC) 17:34: mouth 28-10 mg 27 daily. CSpX folic 2020-0 Yes Take by NPI:183 acid/vit B 4-17 mouth. 5104537 complex and 17:34: C (B 27 COMPLEX-VIT RAZA C-FOLIC ACID ORAL) Cholecalcif 2020-0 Yes Take by [employer] I:183 ann, 4-17 mouth. 2908945 Vitamin D3, 17:34: 2,000 unit 27 capsule metoprolol 2020-0 Yes 12.5mg Take 12.5 NPI:183 tartrate 4-17 mg by [id number] 12.5 mg 17:34: mouth 2 27 (two) times daily. MULTIVITAMI 2020-0 Yes Take by [employer] I:183 N ORAL 4-17 mouth. [id number] 17:34: 27 thiamine 2020-0 Yes 100mg Take 100 NPI: 183 (VITAMIN 4-17 mg by 1720283 B-1) 100 mg 17:34: mouth tablet 27 daily. aspirin 81 2020-0 Yes 81mg Take 81 mg N PI:183 mg chewable 4-17 by mouth 1318 781 tablet 17:34: daily. 27 atorvastati 2020-0 Yes 40mg Take 40 mg NPI:183 n 40 mg 4-17 by mouth [id number] tablet 17:34: at 27 bedtime. NaCl 0.9% 2020-0 Yes 10mL Inject 10 NPI :183 (NS) Soln 4-17 mL [id number] 10 mL with 17:34: intravenou sodium 27 sly once chloride now. 2.5 mEq/mL SolP 17.125 mEq memantine-d 2020-0 Yes 1{capsu Take 1 N PI:183 onepezil 4-17 [place] [address] 81 (NAMZARIC) 17:34: mouth 28-10 mg 27 daily. CSpX folic 2020-0 Yes Take by NPI:183 acid/vit B 4-17 mouth. 7481320 complex and 17:34: C (B 27 COMPLEX-VIT RAZA C-FOLIC ACID ORAL) Cholecalcif 2020-0 Yes Take by [employer] I:183 ann, 4-17 mouth. 7582950 Vitamin D3, 17:34: 2,000 unit 27 capsule metoprolol 2020-0 Yes 12.5mg Take 12.5 NPI:183 tartrate 4-17 mg by [id number] 12.5 mg 17:34: mouth 2 27 (two) times daily. MULTIVITAMI 2020-0 Yes Take by [employer] I:183 N ORAL 4-17 mouth. 7971861 17:34: 27 thiamine 2020-0 Yes 100mg Take 100 NPI: 183 (VITAMIN 4-17 mg by 0662264 B-1) 100 mg 17:34: mouth tablet 27 daily. aspirin 81 2020-0 Yes 81mg Take 81 mg N PI:183 mg chewable 4-17 by mouth 1318 781 tablet 17:34: daily. 27 atorvastati 2020-0 Yes 40mg Take 40 mg NPI:183 n 40 mg 4-17 by mouth [id number] tablet 17:34: at 27 bedtime. NaCl 0.9% 2020-0 Yes 10mL Inject 10 NPI :183 (NS) Soln 4-17 mL [id number] 10 mL with 17:34: intravenou sodium 27 sly once chloride now. 2.5 mEq/mL SolP 17.125 mEq potassium 2020-0 2020- No 20meq Take 20 NPI :183 chloride 20 4-17 04-17 [place] [address] 81 mEq packet 15:53: 00:00 mouth 05 :00 daily. donepezil 2020-0 Yes 5mg 5 mg, NPI:183 (ARICEPT) 4-17 Oral, QHS, 1318 781 tablet 5 mg 02:00: First dose 00 on Madhavi 03/01/20 at 2100, Until Discontinu ed, Routine furosemide 2020-0 Yes [id number] 40mg Take 1 NPI:183 40 mg 4-17 tablet by [id number] tablet 00:00: mouth 00 every morning and evening. potassium 2020-0 Yes [id number] 20meq Take 20 NPI:183 chloride 20 4-17 mEq by 321486 1 mEq packet 00:00: mouth 00 daily. vitamin 2020-0 Yes [id number] 1000ug Take 1 N PI:183 B-12 1,000 4-17 tablet by 1318 781 mcg tablet 00:00: mouth 00 daily. furosemide 2020-0 Yes [id number] 40mg Take 1 NPI:183 40 mg 4-17 tablet by 8309142 tablet 00:00: mouth 00 every morning and evening. potassium 2020-0 Yes [id number] 20meq Take 20 NPI:183 chloride 20 4-17 mEq by 178956 1 mEq packet 00:00: mouth 00 daily. vitamin 2020-0 Yes [id number] 1000ug Take 1 N PI:183 B-12 1,000 4-17 tablet by 1318 781 mcg tablet 00:00: mouth 00 daily. furosemide 2020-0 2020- No [id number] 40mg Take 1 NPI:183 40 mg 4-17 04-22 tablet by [id number] tablet 00:00: 00:00 mouth 00 :00 every morning and evening. potassium 2020-0 2020- No [id number] 20meq Take 20 NPI:183 chloride 20 4-17 04-22 [place] 69350 81 mEq packet 00:00: 00:00 mouth 00 :00 daily. vitamin 2020-0 2020- No [id number] 1000ug Take 1 NPI:183 B-12 1,000 4-17 04-22 tablet by 131 8781 mcg tablet 00:00: 00:00 mouth 00 :00 daily. cyanocobala 2020-0 Yes 1000ug 1,000 mcg, NPI:183 min -16 Subcutaneo [id number] (VITAMIN 20:45: us, Q24H, B12) 00 First dose injection on Madhavi 1,000 mcg 03/01/20 at 1545, Until Discontinu ed, Routine isosorbide 2020-0 Yes 30mg 30 mg, NPI:1 83 mononitrate 4-16 Oral, [id number] (IMDUR) 24 14:00: DAILY, hr tablet 00 First dose 30 mg on Madhavi 03/01/20 at 0900, Until Discontinu ed, Routine memantine 2020-0 Yes 10mg 10 mg, NPI:18 3 (NAMENDA) -16 Oral, [id number] tablet 10 14:00: DAILY, mg 00 First dose on Thu03/01/20 at 0900, Until Discontinu ed, Routine
city council member approving Restricted medication : [facility] lisinopril 2020-0 Yes 5mg 5 mg, NPI:18 3 (PRINIVIL,Z -16 Oral, [id number] ESTRIL) 14:00: DAILY, tablet 5 mg 00 First dose on Thu03/01/20 at 0900, Until Discontinu ed, Routine enoxaparin 2020-0 Yes 30mg 30 mg, NPI:1 83 (LOVENOX) -16 Subcutaneo 1318 781 injection 14:00: us, DAILY, 30 mg 00 First dose on Thu03/01/20 at 0900, Until Discontinu ed, Routine KCL 2020-0 2020- No 20meq 20 mEq, NPI:183 (KLOR-CON -01 03- Oral, [id number] M20) tablet 14:00: 13:26 DAILY, 20 mEq 00 :35 First dose on Thu03/01/20 at 0900, Until Discontinu ed, Routine KCL 2020-0 Yes 40meq 40 mEq, NPI:183 (KLOR-CON 4-16 Oral, BID, 1318 781 M20) tablet 13:30: First dose 40 mEq 00 on Thu03/01/20 at 0830, Until Discontinu ed, Routine magnesium 2020-0 2020- No 2g 2 g, IV NPI: 183 sulfate in 03-01 Infusion, 131 8781 water 2 03:30: 03:30 ONCE, 1 gram/50 mL 00 :00 dose, Wed (4 %) 2 g 02/29/20 at piggyback 2230 metoprolol 2020-0 2020- No 5mg 5 mg, Slow NPI:183 (LOPRESSOR) 03-01-16 IV Push, 131 8781 injection 5 03:30: 03:37 ONCE, 1 mg 00 :00 dose, 02/29/20 at 2230, ADAMA glipiZIDE 2020-0 Yes 5mg 5 mg, NPI:183 (GLUCOTROL) -16 Oral, [id number] tablet 5 mg 02:45: BIDAC, 00 First dose on Thu02/29/20 at 2145, Until Discontinu ed, Routine insulin 2020-0 Yes 10U 10 Units, NPI:1 83 glargine 4-16 Subcutaneo 93147 81 (LANTUS 02:45: us, QHS, U-100) 00 First dose injection on Thu 10 Units 02/29/20 at 2145, Until Discontinu ed, Routine OLANZapine 2020-0 Yes 2.5mg 2.5 mg, NPI :183 (ZyPREXA) 4-16 Oral, QHS, 1318 781 tablet 2.5 02:45: First dose mg 00 on Thu02/29/20 at 2145, Until Discontinu ed, Routine ranolazine 2020-0 Yes 500mg 500 mg, NPI :183 (RANEXA) 12 4-16 Oral, [id number] hr tablet 02:30: Q12H, 500 mg 00 First dose on Thu02/29/20 at 2130, Until Discontinu ed, Routine spironolact 2020-0 Yes 12.5mg 12.5 mg, NPI:183 one 4-16 Oral, [id number] (ALDACTONE) 02:30: DAILY, tablet 12.5 00 First dose mg on Thu02/29/20 at 2130, Until Discontinu ed, Routine metoprolol 2020-0 Yes 25mg 25 mg, NPI:1 83 succinate 4-16 Oral, BID, 3184 781 XL (TOPROL 02:30: First dose XL) tablet 00 on Thu 25 mg 02/29/20 at 2130, Until Discontinu ed, Routine atorvastati 2020-0 Yes 40mg 40 mg, NPI: 183 n (LIPITOR) 4-16 Oral, QHS, 13 69490 tablet 40 02:30: First dose mg 00 on Thu02/29/20 at 2130, Until Discontinu ed, Routine aspirin 2020-0 Yes 81mg 81 mg, NPI:183 chewable 4-16 Oral, QAM 265463 1 tablet 81 02:30: WITH mg 00 BREAKFAST, First dose on Thu02/29/20 at 2130, Until Discontinu ed, Routine magnesium 2020-0 Yes 400mg 400 mg, NPI: 183 oxide 4-16 Oral, BID, [id number] (MAG-OX 02:30: First dose 400) tablet 00 on Thu 400 mg 02/29/20 at 2130, Until Discontinu ed, Routine furosemide 2019-0 Yes 40mg 40 mg, NPI:1 83 (LASIX) 4-16 Slow IV [id number] injection 02:30: Push, 40 mg 00 Q12H, First dose on Thu02/29/20 at 2130, Until Discontinu ed, Routine KCL 2019-0 2020- No 40meq 40 mEq, NPI:183 (KLOR-CON 03-01-16 Oral, [id number] M20) tablet 01:00: 02:05 ONCE, 1 40 mEq 00 :00 dose, Thu02/29/20 at 2000, Routine acetaminoph 2019-0 Yes 650mg 650 mg, [employer] I:183 en 02-28 Oral, [id number] (TYLENOL) 23:57: Q6HPRN, tablet 650 25 Starting mg Thu02/29/20 at 1857, Until Discontinu ed, Routine, Pain (scale 1-3) NaCl 0.9% 0 2020- No 500mL at 999 NPI: 183 (NS) bolus 02-2815 mL/hr, 500 13 52004 infusion 23:30: 23:37 mL, IV 500 mL 00 :00 Infusion, ONCE, 1 dose, Thu02/29/20 at 1830, ADAMA acetaminoph 2019-0 2020- No 650mg 650 mg, N PI:183 en 02-2815 Oral, [id number] (TYLENOL) 23:00: 22:36 ONCE, 1 tablet 650 00 :00 dose, Wed mg 02/29/20 at 1800, ADAMA donepezil 5 2019-0 Yes 5mg Take 5 mg N PI:183 mg tablet 02-14 by mouth [id number] 1 00:00: daily. 00 donepezil 5 2019-0 2020- No 5mg Take 5 mg NPI:183 mg tablet 02-1408 by mouth 54698 81 00:00: 00:00 daily. 00 :00 nitroglycer 2019-0 2020- No DISSOLVE N PI:183 in 0.4 mg 02-14-07 ONE TABLET 131 8781 sublingual 00:00: 00:00 UNDER THE tablet 00 :00 TONGUE EVERY 5 MINUTES NEEDED FOR CHEST PAIN. DO NOT EXCEED A TOTAL OF 3 DOSES IN 15 MINUTES KCL 10 mEq 2020-0 2020- No 10meq Take 10 [employer] I:183 tablet 02-14 05-07 mEq by [id number] 00:00: 00:00 mouth 00 :00 daily. nitroglycer 2020-0 2020- No DISSOLVE N PI:183 in 0.4 mg 02-14-07 ONE TABLET 131 8781 sublingual 00:00: 00:00 UNDER THE tablet 00 :00 TONGUE EVERY 5 MINUTES NEEDED FOR CHEST PAIN. DO NOT EXCEED A TOTAL OF 3 DOSES IN 15 MINUTES KCL 10 mEq 2020-0 2020- No 10meq Take 10 [employer] I:183 tablet 02-14 05-07 mEq by [id number] 00:00: 00:00 mouth 00 :00 daily. memantine-d 2020-0 Yes 1{capsu Take 1 N PI:183 onepezil 3-03 le} [place] [address] 81 (NAMZARIC) 23:00: mouth 28-10 mg 52 daily. CSpX folic 2020-0 Yes Take by NPI:183 acid/vit B 3-03 mouth. 4868172 complex and 23:00: C (B 52 COMPLEX-VIT RAZA C-FOLIC ACID ORAL) potassium 2020-0 Yes 20meq Take 20 NPI: 183 chloride 20 3-03 mEq by 061243 1 mEq packet 23:00: mouth 52 daily. Cholecalcif 2020-0 Yes Take by [employer] I:183 ann, 3-03 mouth. 9703019 Vitamin D3, 23:00: 2,000 unit 52 capsule metoprolol 2020-0 Yes 12.5mg Take 12.5 NPI:183 tartrate 3-03 mg by [id number] 12.5 mg 23:00: mouth 2 52 (two) times daily. MULTIVITAMI 2020-0 Yes Take by [employer] I:183 N ORAL 3-03 mouth. 1465957 23:00: 52 thiamine 2020-0 Yes 100mg Take 100 NPI: 183 (VITAMIN 3-03 mg by 4555433 B-1) 100 mg 23:00: mouth tablet 52 daily. aspirin 81 2020-0 Yes 81mg Take 81 mg N PI:183 mg chewable 3-03 by mouth 1318 781 tablet 23:00: daily. 52 atorvastati 2020-0 Yes 40mg Take 40 mg NPI:183 n 40 mg 3-03 by mouth [id number] tablet 23:00: at 52 bedtime. NaCl 0.9% 2020-0 Yes 10mL Inject 10 NPI :183 (NS) Soln 3-03 mL [id number] 10 mL with 23:00: intravenou sodium 52 sly once chloride now. 2.5 mEq/mL SolP 17.125 mEq memantine-d 2020-0 Yes 1{capsu Take 1 N PI:183 onepezil 3-03 [place]} [place] [address] 81 (NAMZARIC) 23:00: mouth 28-10 mg 52 daily. CSpX folic 2020-0 Yes Take by NPI:183 acid/vit B 3-03 mouth. 1057900 complex and 23:00: C (B 52 COMPLEX-VIT RAZA C-FOLIC ACID ORAL) potassium 2020-0 Yes 20meq Take 20 NPI: 183 chloride 20 3-03 mEq by 577762 1 mEq packet 23:00: mouth 52 daily. Cholecalcif 2020-0 Yes Take by [employer] I:183 ann, 3-03 mouth. 7148656 Vitamin D3, 23:00: 2,000 unit 52 capsule metoprolol 2020-0 Yes 12.5mg Take 12.5 NPI:183 tartrate 3-03 mg by 6892265 12.5 mg 23:00: mouth 2 52 (two) times daily. MULTIVITAMI 2020-0 Yes Take by [employer] I:183 N ORAL 3-03 mouth. 7395576 23:00: 52 thiamine 2020-0 Yes 100mg Take 100 NPI: 183 (VITAMIN 3-03 mg by 2012591 B-1) 100 mg 23:00: mouth tablet 52 daily. aspirin 81 2020-0 Yes 81mg Take 81 mg N PI:183 mg chewable 3-03 by mouth 1318 781 tablet 23:00: daily. 52 atorvastati 2020-0 Yes 40mg Take 40 mg NPI:183 n 40 mg 3-03 by mouth 6807273 tablet 23:00: at 52 bedtime. NaCl 0.9% 2020-0 Yes 10mL Inject 10 NPI :183 (NS) Soln 3-03 mL 3328543 10 mL with 23:00: intravenou sodium 52 sly once chloride now. 2.5 mEq/mL SolP 17.125 mEq memantine-d 2020-0 Yes 1{capsu Take 1 N PI:183 onepezil 3-03 [place]} [place] [address] 81 (NAMZARIC) 23:00: mouth 28-10 mg 52 daily. CSpX folic 2020-0 Yes Take by NPI:183 acid/vit B 3-03 mouth. 3752339 complex and 23:00: C (B 52 COMPLEX-VIT RAZA C-FOLIC ACID ORAL) potassium 2020-0 Yes 20meq Take 20 NPI: 183 chloride 20 3-03 mEq by 068220 1 mEq packet 23:00: mouth 52 daily. Cholecalcif 2020-0 Yes Take by [employer] I:183 ann, 3-03 mouth. 1603964 Vitamin D3, 23:00: 2,000 unit 52 capsule metoprolol 2020-0 Yes 12.5mg Take 12.5 NPI:183 tartrate 3-03 mg by [id number] 12.5 mg 23:00: mouth 2 52 (two) times daily. MULTIVITAMI 2020-0 Yes Take by [employer] I:183 N ORAL 3-03 mouth. 4922138 23:00: 52 thiamine 2020-0 Yes 100mg Take 100 NPI: 183 (VITAMIN 3-03 mg by 0810870 B-1) 100 mg 23:00: mouth tablet 52 daily. aspirin 81 2020-0 Yes 81mg Take 81 mg N PI:183 mg chewable 3-03 by mouth 1318 781 tablet 23:00: daily. 52 atorvastati 2020-0 Yes 40mg Take 40 mg NPI:183 n 40 mg 3-03 by mouth [id number] tablet 23:00: at 52 bedtime. NaCl 0.9% 2020-0 Yes 10mL Inject 10 NPI :183 (NS) Soln 3-03 mL [id number] 10 mL with 23:00: intravenou sodium 52 sly once chloride now. 2.5 mEq/mL SolP 17.125 mEq memantine-d 2020-0 Yes 1{capsu Take 1 N PI:183 onepezil 3-03 [place]} [place] [address] 81 (NAMZARIC) 23:00: mouth 28-10 mg 52 daily. CSpX folic 2020-0 Yes Take by NPI:183 acid/vit B 3-03 mouth. 5560992 complex and 23:00: C (B 52 COMPLEX-VIT RAZA C-FOLIC ACID ORAL) potassium 2020-0 Yes 20meq Take 20 NPI: 183 chloride 20 3-03 mEq by 781794 1 mEq packet 23:00: mouth 52 daily. Cholecalcif 2020-0 Yes Take by [employer] I:183 ann, 3-03 mouth. 9509064 Vitamin D3, 23:00: 2,000 unit 52 capsule metoprolol 2020-0 Yes 12.5mg Take 12.5 NPI:183 tartrate 3-03 mg by [id number] 12.5 mg 23:00: mouth 2 52 (two) times daily. MULTIVITAMI 2020-0 Yes Take by [employer] I:183 N ORAL 3-03 mouth. 4590555 23:00: 52 thiamine 2020-0 Yes 100mg Take 100 NPI: 183 (VITAMIN 3-03 mg by 0844119 B-1) 100 mg 23:00: mouth tablet 52 daily. aspirin 81 2020-0 Yes 81mg Take 81 mg N PI:183 mg chewable 3-03 by mouth 1318 781 tablet 23:00: daily. 52 atorvastati 2020-0 Yes 40mg Take 40 mg NPI:183 n 40 mg 3-03 by mouth 0414466 tablet 23:00: at 52 bedtime. NaCl 0.9% 2020-0 Yes 10mL Inject 10 NPI :183 (NS) Soln 3-03 mL [id number] 10 mL with 23:00: intravenou sodium 52 sly once chloride now. 2.5 mEq/mL SolP 17.125 mEq atorvastati 2020-0 Yes 40mg 40 mg, NPI: 183 n (LIPITOR) 3-03 Oral, QHS, [id number] tablet 40 03:00: First dose mg 00 on Thu01/16/20 at 2100, Until Discontinu ed, Routine ranolazine 2020-0 2020- No [id number] 500mg Take 1 NPI:183 500 mg 12 01-16 04-03 tablet by 1318 781 hr tablet 00:00: 04:59 mouth 00 :00 every 12 (twelve) hours for 30 days. ranolazine 2020-0 2020- No [id number] 500mg Take 1 NPI:183 500 mg 12 - 04-03 tablet by 1318 781 hr tablet 00:00: 04:59 mouth 00 :00 every 12 (twelve) hours for 30 days. ranolazine 2020-0 2020- No [id number] 500mg Take 1 NPI:183 500 mg 12 3-03 04-03 tablet by 1318 781 hr tablet 00:00: 04:59 mouth 00 :00 every 12 (twelve) hours for 30 days. ranolazine 2020-0 2020- No [id number] 500mg Take 1 NPI:183 500 mg 12 01-16- tablet by 1318 781 hr tablet 00:00: 04:59 mouth 00 :00 every 12 (twelve) hours for 30 days. ranolazine 2020-0 Yes 500mg 500 mg, NPI :183 (RANEXA) 12 - Oral, [id number] hr tablet 22:30: Q12H, 500 mg 00 First dose on Thu01/16/20 at 1630, Until Discontinu ed, Routine insulin 2020-0 Yes 30U 30 Units, NPI:1 83 glargine - Subcutaneo [id number] (LANTUS 15:00: us, DAILY, U-100) 00 First dose injection on Thu 30 Units 01/16/20 at 0900, Until Discontinu ed furosemide 2020-0 Yes 40mg 40 mg, NPI:1 83 (LASIX) 3- Oral, [id number] tablet 40 15:00: DAILY, mg 00 First dose on Thu01/16/20 at 0900, Until Discontinu ed, Routine aspirin 2020-0 Yes 81mg 81 mg, NPI:183 chewable - Oral, [id number] tablet 81 15:00: DAILY, mg 00 First dose on Thu01/16/20 at 0900, Until Discontinu ed, Routine metoprolol 2020-0 Yes 12.5mg 12.5 mg, N PI:183 tartrate 3- Oral, BID, [id number] 81 (LOPRESSOR) 14:00: First dose tablet 12.5 00 on Thu mg 01/16/20 at 0800, Until Discontinu ed, Routine Sliding 2020-0 Yes Subcutaneo NPI: 183 Scale 3-02 us, Q6H, [id number] Insulin-Reg 12:00: First dose ular + Fsbg 00 on Mon Testing 01/16/20 at 0600, Until Discontinu ed, Routine glucagon 2020-0 Yes 1mg 1 mg, NPI:183 (GLUCAGEN - Intramuscu [id number] DIAGNOSTIC 10:52: lar, PRN, KIT) 33 Starting injection 1 Thu01/16/20 mg at 0452, Until Discontinu ed, ADAMA, Blood Glucose < or = 70 mg/dL and patient is unable to swallow or has mental changes. dextrose 50 2020-0 Yes 25mL 25 mL, NPI: 183 % in water 01-15 Slow IV 338207 1 (D50W) 10:52: Push, PRN, injection 33 Starting 25 mL 01/16/20 at 0452, Until Discontinu ed, ADAMA, Blood Glucose < or = 70 mg/dL and patient is unable to swallow or has mental status changes. nitroglycer 2020-0 Yes .4mg 0.4 mg, NPI :183 in 01-15 Sublingual [id number] (NITROSTAT) 07:57: , Q5MIN sublingual 30 PRN, tablet 0.4 Starting mg Thu01/16/20 at 0157, Until Discontinu ed, Routine, Chest pain ondansetron 2020-0 Yes 4mg 4 mg, Slow NPI:183 (ZOFRAN 01-15 IV Push, [id number] (PF)) 07:55: Q6HPRN, injection 4 01 Starting mg 01/16/20 at 0155, Until Discontinu ed, Routine, Nausea and Vomiting (N/V) morpHINE 2019-0 2020- No 2mg 2 mg, Slow [employer] I:183 injection 2 01-15 IV Push, 131 8781 mg 07:54: 07:53 Q6HPRN, 55 :55 Starting Thu01/16/20 at 0154, Until 01/17/20 at 0153, Routine, Pain (scale 7-10) traMADol 2019-0 2020- No 50mg 50 mg, NPI:18 3 (ULTRAM) 01-15 03-04 Oral, [id number] tablet 50 07:54: 07:53 Q8HPRN, mg 47 :47 Starting Thu01/16/20 at 0154, Until Thu01/18/20 at 0153, Routine, Pain (scale 4-6) acetaminoph 2020-0 Yes 650mg 650 mg, [employer] I:183 en 01-15 Oral, [id number] (TYLENOL) 07:54: Q6HPRN, tablet 650 44 Starting mg Thu01/16/20 at 0154, Until Discontinu ed, Routine, Pain (scale 1-3) insulin 2020-0 2020- No 8U 8 Units, NPI:1 83 regular 3-02 03-02 Slow IV [id number] human 06:45: 05:40 Push, (HUMULIN R) 00 :00 ONCE, 1 injection 8 dose, Mon Units 01/16/20 at 0045, STAT heparin 2019- Yes 1000U/h 1,000 NPI:18 3 25,000 3-02 Units/hr [id number] unit/250 mL 06:00: (10 (Premixed 00 mL/hr), IV Bag) in Infusion, NaCl 0.45 % CONTINUOUS weight , Starting based Thu01/16/20 dosing ACS at 0000, protocol Until Discontinu ed heparin 2020- No 4000U 4,000 NPI:183 1000 3-02 03-02 Units, IV [id number] unit/mL 05:45: 05:47 Push, injection 00 :00 ONCE, 1 Soln 4,000 dose, Sun Units 01/15/20 at 2345, ADAMA furosemide 2018-11 Yes [id number] 40mg Take 1 NPI:183 40 mg 0-26 tablet by [id number] tablet 00:00: mouth 00 daily. furosemide 2018-11 Yes [id number] 40mg Take 1 NPI:183 40 mg 0-26 tablet by [id number] tablet 00:00: mouth 00 daily. furosemide 2018-11 Yes [id number] 40mg Take 1 NPI:183 40 mg 0-26 tablet by [id number] tablet 00:00: mouth 00 daily. furosemide 2018-11 Yes [id number] 40mg Take 1 NPI:183 40 mg 0-26 tablet by [id number] tablet 00:00: mouth 00 daily. furosemide 2018-11 2020- No [id number] 40mg Take 1 NPI:183 40 mg 0-26 04-17 tablet by [id number] tablet 00:00: 00:00 mouth 00 :00 daily. magnesium 2018- Yes [id number] 400mg Take 400 NPI:183 oxide 420 0-23 mg by [id number] mg Tab 00:00: mouth 00 daily. magnesium 2018- Yes [id number] 400mg Take 400 NPI:183 oxide 420 0-23 mg by [id number] mg Tab 00:00: mouth 00 daily. magnesium 2018- Yes [id number] 400mg Take 400 NPI:183 oxide 420 0-23 mg by [id number] mg Tab 00:00: mouth 00 daily. magnesium 2019- Yes [id number] 400mg Take 400 NPI:183 oxide 420 0-23 mg by [id number] mg Tab 00:00: mouth 00 daily. magnesium 2019- Yes [id number] 400mg Take 400 NPI:183 oxide 420 0-23 mg by [id number] mg Tab 00:00: mouth 00 daily. magnesium 2019- Yes [id number] 400mg Take 400 NPI:183 oxide 420 0-23 mg by [id number] mg Tab 00:00: mouth 00 daily. magnesium 2018- 2020- No [id number] 400mg Take 400 NPI:183 oxide 420 0-23 04-22 mg by [id number] mg Tab 00:00: 00:00 mouth 00 :00 daily. Insulin 2019-0 Yes [id number] 30U inject 30 NPI:183 Glargine 9-11 Units [id number] 100 unit/mL 00:00: under the (3 mL) 00 skin every injection morning. Insulin 2019-0 Yes [id number] 30U inject 30 NPI:183 Glargine 9-11 Units [id number] 100 unit/mL 00:00: under the (3 mL) 00 skin every injection morning. Insulin 2019-0 Yes [id number] 30U inject 30 NPI:183 Glargine 9-11 Units [id number] 100 unit/mL 00:00: under the (3 mL) 00 skin every injection morning. Insulin 2019-0 Yes [id number] 30U inject 30 NPI:183 Glargine 9-11 Units [id number] 100 unit/mL 00:00: under the (3 mL) 00 skin every injection morning. Insulin 2019-0 Yes [id number] 30U inject 30 NPI:183 Glargine 9-11 Units [id number] 100 unit/mL 00:00: under the (3 mL) 00 skin every injection morning. Insulin 2019-0 Yes [id number] 30U inject 30 NPI:183 Glargine 9-11 Units [id number] 100 unit/mL 00:00: under the (3 mL) 00 skin every injection morning. Insulin 2019-0 Yes [id number] 30U inject 30 NPI:183 Glargine 9-11 Units [id number] 100 unit/mL 00:00: under the (3 mL) 00 skin every injection morning. Insulin 2019-0 2020- No [id number] 30U inject 30 NPI:183 Glargine 9-11 04-22 Units [id number] 100 unit/mL 00:00: 00:00 under the (3 mL) 00 :00 skin every injection morning. memantine-d 2019-0 Yes 1{capsu Take 1 N PI:183 onepezil 5-10 le} [place] [id number] 81 (NAMZARIC) 15:26: mouth 28-10 mg 43 daily. CSpX enoxaparin 2019-0 Yes 30mg inject 30 [employer] I:183 injection 5-10 mg under [id number] 1 15:26: the skin. 43 Cholecalcif 2019-0 Yes Take by [employer] I:183 ann, 5-10 mouth. [id number] Vitamin D3, 15:26: 2,000 unit 43 capsule metoprolol 2018-0 Yes 12.5mg Take 12.5 NPI:183 tartrate 5-10 mg by [id number] 12.5 mg 15:26: mouth 2 43 (two) times daily. MULTIVITAMI 2018-0 Yes Take by [employer] I:183 N ORAL 5-10 mouth. [id number] 15:26: 43 thiamine 2019-0 Yes 100mg Take 100 NPI: 183 (VITAMIN 5-10 mg by [id number] B-1) 100 mg 15:26: mouth tablet 43 daily. aspirin 81 2019-0 Yes 81mg Take 81 mg N PI:183 mg chewable 5-10 by mouth 1318 781 tablet 15:26: daily. 43 atorvastati 2019-0 Yes 40mg Take 40 mg NPI:183 n 40 mg 5-10 by mouth [id number] tablet 15:26: at 43 bedtime. furosemide 2019-0 Yes 40mg Take 40 mg N PI:183 40 mg 5-10 by mouth [id number] tablet 15:26: daily. 43 NaCl 0.9% 2019-0 Yes 10mL Inject 10 NPI :183 (NS) Soln 5-10 mL [id number] 10 mL with 15:26: intravenou sodium 43 sly once chloride now. 2.5 mEq/mL SolP 17.125 mEq memantine-d 2019-0 Yes 1{capsu Take 1 N PI:183 onepezil 5-10 [place] [id number] (NAMZARIC) 15:26: mouth 28-10 mg 43 daily. CSpX enoxaparin 2019-0 Yes 30mg inject 30 [employer] I:183 injection 5-10 mg under [id number] 1 15:26: the skin. 43 Cholecalcif 2019-0 Yes Take by [employer] I:183 ann, 5-10 mouth. [id number] Vitamin D3, 15:26: 2,000 unit 43 capsule metoprolol 2019-0 Yes 12.5mg Take 12.5 NPI:183 tartrate 5-10 mg by [id number] 12.5 mg 15:26: mouth 2 43 (two) times daily. MULTIVITAMI 2019-0 Yes Take by [employer] I:183 N ORAL 5-10 mouth. [id number] 15:26: 43 thiamine 2019-0 Yes 100mg Take 100 NPI: 183 (VITAMIN 5-10 mg by [id number] B-1) 100 mg 15:26: mouth tablet 43 daily. aspirin 81 2019-0 Yes 81mg Take 81 mg N PI:183 mg chewable 5-10 by mouth 1318 781 tablet 15:26: daily. 43 atorvastati 2019-0 Yes 40mg Take 40 mg NPI:183 n 40 mg 5-10 by mouth [id number] tablet 15:26: at 43 bedtime. furosemide 2019-0 Yes 40mg Take 40 mg N PI:183 40 mg 5-10 by mouth [id number] tablet 15:26: daily. 43 NaCl 0.9% 2019-0 Yes 10mL Inject 10 NPI :183 (NS) Soln 5-10 mL [id number] 10 mL with 15:26: intravenou sodium 43 sly once chloride now. 2.5 mEq/mL SolP 17.125 mEq insulin 2019-0 Yes [id number] 4U inject 4 N PI:183 lispro, 5-10 Units [id number] human, 100 00:00: under the unit/mL 00 skin 3 injection (three) times daily before meals. insulin 2019-0 Yes [id number] 4U inject 4 N PI:183 lispro, 5-10 Units [id number] human, 100 00:00: under the unit/mL 00 skin 3 injection (three) times daily before meals. insulin 2019-0 Yes [id number] 4U inject 4 N PI:183 lispro, 5-10 Units [id number] human, 100 00:00: under the unit/mL 00 skin 3 injection (three) times daily before meals. insulin 2019-0 Yes [id number] 4U inject 4 N PI:183 lispro, 5-10 Units [id number] human, 100 00:00: under the unit/mL 00 skin 3 injection (three) times daily before meals. insulin 2019-0 Yes [id number] 4U inject 4 N PI:183 lispro, 5-10 Units [id number] human, 100 00:00: under the unit/mL 00 skin 3 injection (three) times daily before meals. insulin 2018-0 Yes [id number] 4U inject 4 N PI:183 lispro, 5-10 Units [id number] human, 100 00:00: under the unit/mL 00 skin 3 injection (three) times daily before meals. Insulin 2018-0 Yes [id number] 18U inject NPI :183 Glargine 5-10 18-24 [id number] 100 unit/mL 00:00: Units (3 mL) 00 under the injection skin every morning. insulin 2018-0 Yes [id number] 4U inject 4 N PI:183 lispro, 5-10 Units [id number] human, 100 00:00: under the unit/mL 00 skin 3 injection (three) times daily before meals. insulin 2018-0 Yes [id number] 4U inject 4 N PI:183 lispro, 5-10 Units [id number] human, 100 00:00: under the unit/mL 00 skin 3 injection (three) times daily before meals. insulin 2019-0 Yes [id number] 4U inject 4 N PI:183 lispro, 5-10 Units [id number] human, 100 00:00: under the unit/mL 00 skin 3 injection (three) times daily before meals. insulin 2018-0 Yes [id number] 4U inject 4 N PI:183 lispro, 5-10 Units [id number] human, 100 00:00: under the unit/mL 00 skin 3 injection (three) times daily before meals. insulin 2019-0 Yes [id number] 4U inject 4 N PI:183 lispro, 5-10 Units [id number] human, 100 00:00: under the unit/mL 00 skin 3 injection (three) times daily before meals. insulin 2020- No [id number] 4U inject 4 NPI:183 lispro, 5-10 05-07 Units [id number] human, 100 00:00: 00:00 under the unit/mL 00 :00 skin 3 injection (three) times daily before meals. insulin 2020- No [id number] 4U inject 4 NPI:183 lispro, 5-10 05-07 Units [id number] human, 100 00:00: 00:00 under the unit/mL 00 :00 skin 3 injection (three) times daily before meals. Insulin 2019- No [id number] 18U inject [employer] I:183 Glargine 03-25- 18-24 [id number] 100 unit/mL 00:00: 00:00 Units (3 mL) 00 :00 under the injection skin every morning. folic Yes Take by NPI:183 acid/vit B 3-08 mouth. [id number] complex and 16:39: C (B 29 COMPLEX-VIT RAZA C-FOLIC ACID ORAL) potassium Yes 20meq Take 20 NPI: 183 chloride 20 3-08 mEq by [id number] 1 mEq packet 16:39: mouth 29 daily. folic Yes Take by NPI:183 acid/vit B 3-08 mouth. [id number] complex and 16:39: C (B 29 COMPLEX-VIT RAZA C-FOLIC ACID ORAL) potassium 0 Yes 20meq Take 20 NPI: 183 chloride 20 3-08 mEq by [id number] 1 mEq packet 16:39: mouth 29 daily. Lantus Lantus Yes Anneliese as NPI:174 Millender directed 155344 9 Lasix Lasix Yes Anneliese 1 tablet NPI:174 Millender 4105177 Isosorbide Isosorbide Yes Anneliese 1 tablet NPI:174 Mononitrate Mononitrate Millender in the 4783541 morning Lyrica Lyrica Yes Anneliese 1 capsule NPI:1 74 Millender 1519158 Potassium Potassium Yes Anneliese 1 capsule NPI:174 Chloride Chloride Millender with food 8389026 Tylenol # 3 Tylenol # 3 Yes Anneliese one tab NPI:174 Millender 5719190 Vitamin D-3 Vitamin D-3 Yes Anneliese 2 capsule NPI:174 Millender [id number] Humalog Humalog Yes Anneliese as NPI:174 Millender directed 132740 9 Aspir-Low Aspir-Low Yes Anneliese 1 tablet NPI:174 Millender 3049448 Namzaric Namzaric Yes Anneliese 1 NPI:17 4 Millender 2644819 Zyprexa Zyprexa Yes Anneliese 1 tablet NPI: 174 Millender 9893234 Vitamin B-1 Vitamin B-1 Yes Anneliese 1 tablet NPI:174 Millender 5709621 Multivitami Multivitami Yes Anneliese as NPI:174 n n Millender directed [id number] 9 Immunizations Ordered Immunization Filled Immunization Date Status Commen ts Source Name Name SARS-COV-2 COVID-19 2021-09-16 Completed NPI:1 [id number] MODERNA VACCINE 00:00:00 SARS-COV-2 COVID-19 2021-09-16 Completed NPI:1 [id number] MODERNA VACCINE 00:00:00 SARS-COV-2 COVID-19 2021-09-16 Completed NPI:1 [id number] MODERNA VACCINE 00:00:00 SARS-COV-2 COVID-19 2021-09-16 Completed NPI:1 [id number] MODERNA VACCINE 00:00:00 SARS-COV-2 COVID-19 2021-08-17 Completed NPI:1 [id number] MODERNA VACCINE 00:00:00 Influenza High Dose 2021-08-17 Completed NPI:1 [id number] 00:00:00 SARS-COV-2 COVID-19 2021-08-17 Completed NPI:1 [id number] MODERNA VACCINE 00:00:00 Influenza High Dose 2021-08-17 Completed NPI:1 [id number] 00:00:00 SARS-COV-2 COVID-19 2021-08-17 Completed NPI:1 [id number] MODERNA VACCINE 00:00:00 Influenza High Dose 2021-08-17 Completed NPI:1 [id number] 00:00:00 SARS-COV-2 COVID-19 2021-08-17 Completed NPI:1 [id number] MODERNA VACCINE 00:00:00 Influenza High Dose 2021-08-17 Completed NPI:1 [id number] 00:00:00 Zoster(Zostavax)([facility] 2020-09-14 Completed ngles) 00:00:00 Zoster(Zostavax)([facility] 2020-09-14 Completed ngles) 00:00:00 Zoster(Zostavax)([facility] 2020-09-14 Completed ngles) 00:00:00 Zoster(Zostavax)([facility] 2020-09-14 Completed ngles) 00:00:00 Influenza High Dose 2020-07-13 Completed NPI:1 [id number] 00:00:00 Influenza High Dose 2020-07-13 Completed NPI:1 [id number] 00:00:00 Influenza High Dose 2020-07-13 Completed NPI:1 [id number] 00:00:00 Influenza High Dose 2020-07-13 Completed NPI:1 [id number] 00:00:00 Influenza High Dose 2019-09-15 Completed NPI:1 [id number] 00:00:00 Influenza High Dose 2019-09-15 Completed NPI:1 [id number] 00:00:00 Influenza High Dose 2019-09-15 Completed NPI:1 [id number] 00:00:00 Influenza High Dose 2019-09-15 Completed NPI:1 [id number] 00:00:00 Influenza Virus 2018-09-09 Completed NPI:[id number] 35031 Vaccine 00:00:00 Influenza Virus 2018-09-09 Completed NPI:71477 60772 Vaccine 00:00:00 Influenza Virus 2018-09-09 Completed NPI:44631 35273 Vaccine 00:00:00 Influenza Virus 2018-09-09 Completed NPI:65229 80692 Vaccine 00:00:00 Influenza Virus 2018-09-09 Completed NPI:62192 91258 Vaccine 00:00:00 Influenza Virus 2018-09-09 Completed NPI:80588 13229 Vaccine 00:00:00 Influenza Virus 2018-09-09 Completed NPI:86230 30172 Vaccine 00:00:00 Influenza Virus 2018-09-09 Completed NPI:27853 17583 Vaccine 00:00:00 Influenza Virus 2018-09-09 Completed NPI:10777 73325 Vaccine 00:00:00 Influenza Virus 2018-09-09 Completed NPI:91111 93696 Vaccine 00:00:00 Influenza Virus 2018-09-09 Completed NPI:07909 05831 Vaccine 00:00:00 Influenza Virus 2018-09-09 Completed NPI:90266 83150 Vaccine 00:00:00 Influenza Virus 2018-09-09 Completed NPI:88305 60172 Vaccine 00:00:00 Influenza Virus 2018-09-09 Completed NPI:34460 02488 Vaccine 00:00:00 Influenza Virus 2018-09-09 Completed NPI:18434 96613 Vaccine 00:00:00 Influenza Virus 2018-09-09 Completed NPI:53896 64488 Vaccine 00:00:00 Influenza Virus 2018-09-09 Completed NPI:51512 10359 Vaccine 00:00:00 Influenza Virus 2018-09-09 Completed NPI:35524 56188 Vaccine 00:00:00 Influenza Virus 2018-09-09 Completed NPI:74605 91058 Vaccine 00:00:00 Influenza Virus 2018-09-09 Completed NPI:20987 24530 Vaccine 00:00:00 Influenza Virus 2018-09-09 Completed NPI:45212 82309 Vaccine 00:00:00 Influenza Virus 2018-09-09 Completed NPI:18166 59325 Vaccine 00:00:00 Pneumococcal 2016-11-02 Completed NPI:[id number] 81 Polysaccharide, 00:00:00 PPSV23 (PNEUMOVAX) Pneumococcal 2016-11-02 Completed NPI:[id number] 81 Polysaccharide, 00:00:00 PPSV23 (PNEUMOVAX) Pneumococcal 2016-11-02 Completed NPI:[id number] 81 Polysaccharide, 00:00:00 PPSV23 (PNEUMOVAX) Pneumococcal 2016-11-02 Completed NPI:[id number] 81 Polysaccharide, 00:00:00 PPSV23 (PNEUMOVAX) Pneumococcal 2016-11-02 Completed NPI:[id number] 81 Polysaccharide, 00:00:00 PPSV23 (PNEUMOVAX) Pneumococcal 2016-11-02 Completed NPI:[id number] 81 Polysaccharide, 00:00:00 PPSV23 (PNEUMOVAX) Pneumococcal 2016-11-02 Completed NPI:[id number] 81 Polysaccharide, 00:00:00 PPSV23 (PNEUMOVAX) Pneumococcal 2016-11-02 Completed NPI:[id number] 81 Polysaccharide, 00:00:00 PPSV23 (PNEUMOVAX) Pneumococcal 2016-11-02 Completed NPI:[id number] 81 Polysaccharide, 00:00:00 PPSV23 (PNEUMOVAX) Pneumococcal 2016-11-02 Completed NPI:[id number] 81 Polysaccharide, 00:00:00 PPSV23 (PNEUMOVAX) Pneumococcal 2016-11-02 Completed NPI:[id number] 81 Polysaccharide, 00:00:00 PPSV23 (PNEUMOVAX) Pneumococcal 2016-11-02 Completed NPI:[id number] 81 Polysaccharide, 00:00:00 PPSV23 (PNEUMOVAX) Pneumococcal 2016-11-02 Completed NPI:[id number] 81 Polysaccharide, 00:00:00 PPSV23 (PNEUMOVAX) Pneumococcal 2016-11-02 Completed NPI:[id number] 81 Polysaccharide, 00:00:00 PPSV23 (PNEUMOVAX) Pneumococcal 2016-11-02 Completed NPI:[id number] 81 Polysaccharide, 00:00:00 PPSV23 (PNEUMOVAX) Pneumococcal 2016-11-02 Completed NPI:[id number] 81 Polysaccharide, 00:00:00 PPSV23 (PNEUMOVAX) Pneumococcal 2016-11-02 Completed NPI:[id number] 81 Polysaccharide, 00:00:00 PPSV23 (PNEUMOVAX) Pneumococcal 2016-11-02 Completed NPI:[id number] 81 Polysaccharide, 00:00:00 PPSV23 (PNEUMOVAX) Pneumococcal 2016-11-02 Completed NPI:[id number] 81 Polysaccharide, 00:00:00 PPSV23 (PNEUMOVAX) Pneumococcal 2016-11-02 Completed NPI:[id number] 81 Polysaccharide, 00:00:00 PPSV23 (PNEUMOVAX) Pneumococcal 2016-11-02 Completed NPI:[id number] 81 Polysaccharide, 00:00:00 PPSV23 (PNEUMOVAX) Pneumococcal 2016-11-02 Completed NPI:[id number] 81 Polysaccharide, 00:00:00 PPSV23 (PNEUMOVAX) Vital Signs Vital Name Observation Time Observation Value Comments Source Systolic blood pressure 2022-03-01 16:36:00 143 mm[Hg] Diastolic blood 2022-03-01 16:36:00 80 mm[Hg] NPI:1 [id number] pressure Heart rate 2022-03-01 16:36:00 98 /min NPI:1831 988792 Respiratory rate 2022-03-01 16:36:00 16 /min Oxygen saturation in 2022-03-01 16:36:00 97 /min Arterial blood by Pulse oximetry Body temperature 2022-03-01 11:42:00 36.94 Priyanka Body height 2022-03-01 11:42:00 170.2 cm NPI:1831 [id number] Body weight 2022-03-01 11:42:00 77.111 kg NPI:1831 215609 BMI 2022-03-01 11:42:00 26.63 kg/m2 NPI:1831 873518 Systolic blood pressure 2021-11-02 17:17:00 109 mm[Hg] Diastolic blood 2021-11-02 17:17:00 67 mm[Hg] NPI:1 [id number] pressure Heart rate 2021-11-02 17:17:00 84 /min NPI:1831 988467 Body temperature 2021-11-02 17:17:00 36.44 Priyanka Respiratory rate 2021-11-02 17:17:00 18 /min Oxygen saturation in 2021-11-02 17:17:00 95 /min Arterial blood by Pulse oximetry Body weight 2021-11-02 09:17:00 79.969 kg NPI:1831 324390 BMI 2021-11-02 09:17:00 27.61 kg/m2 NPI:1831 667158 Body height 2021-10-31 05:46:00 170.2 cm NPI:1831 109062 Systolic blood pressure 2021-04-25 22:36:00 118 mm[Hg] Diastolic blood 2021-04-25 22:36:00 70 mm[Hg] NPI:1 [id number] pressure Heart rate 2021-04-25 22:36:00 68 /min NPI:1831 308599 Respiratory rate 2021-04-25 22:36:00 18 /min Oxygen saturation in 2021-04-25 22:36:00 99 /min Arterial blood by Pulse oximetry Body temperature 2021-04-25 15:42:00 36.44 Priyanka Body weight 2021-04-25 15:42:00 81.647 kg NPI:1831 830620 BMI 2021-04-25 15:42:00 27.37 kg/m2 NPI:1831 407941 Systolic blood pressure 2020-06-26 10:00:00 124 mm[Hg] Diastolic blood 2020-06-26 10:00:00 78 mm[Hg] NPI:1 [id number] pressure Respiratory rate 2020-06-26 10:00:00 18 /min Oxygen saturation in 2020-06-26 10:00:00 98 /min Arterial blood by Pulse oximetry Heart rate 2020-06-26 08:56:00 98 /min NPI:1831 040657 Body temperature 2020-06-26 08:56:00 37.17 Priyanka Body weight 2020-06-26 08:56:00 74.844 kg NPI:1831 738910 BMI 2020-06-26 08:56:00 25.09 kg/m2 NPI:1831 088805 Systolic blood pressure 2020-06-26 10:00:00 124 mm[Hg] Diastolic blood 2020-06-26 10:00:00 78 mm[Hg] NPI:1 [id number] pressure Respiratory rate 2020-06-26 10:00:00 18 /min Oxygen saturation in 2020-06-26 10:00:00 98 /min Arterial blood by Pulse oximetry Heart rate 2020-06-26 08:56:00 98 /min NPI:1831 827910 Body temperature 2020-06-26 08:56:00 37.17 Priyanka Body weight 2020-06-26 08:56:00 74.844 kg NPI:1831 342025 BMI 2020-06-26 08:56:00 25.09 kg/m2 NPI:1831 072147 Systolic blood pressure 2020-05-24 15:47:29 166 mm[Hg] Diastolic blood 2020-05-24 15:47:29 89 mm[Hg] NPI:1 [id number] pressure Heart rate 2020-05-24 15:47:29 86 /min NPI:1831 828173 Respiratory rate 2020-05-24 15:47:29 16 /min Oxygen saturation in 2020-05-24 15:47:29 97 /min Arterial blood by Pulse oximetry Body temperature 2020-05-24 11:44:00 36.94 Priyanka Body height 2020-05-24 11:44:00 172.7 cm NPI:1831 570597 Body weight 2020-05-24 11:44:00 74.844 kg NPI:1831 407636 BMI 2020-05-24 11:44:00 25.09 kg/m2 NPI:1831 162473 Systolic blood pressure 2020-05-24 15:47:29 166 mm[Hg] Diastolic blood 2020-05-24 15:47:29 89 mm[Hg] NPI:1 [id number] pressure Heart rate 2020-05-24 15:47:29 86 /min NPI:1831 891872 Respiratory rate 2020-05-24 15:47:29 16 /min Oxygen saturation in 2020-05-24 15:47:29 97 /min Arterial blood by Pulse oximetry Body temperature 2020-05-24 11:44:00 36.94 Priyanka Body height 2020-05-24 11:44:00 172.7 cm NPI:1831 514470 Body weight 2020-05-24 11:44:00 74.844 kg NPI:1831 089037 BMI 2020-05-24 11:44:00 25.09 kg/m2 NPI:1831 162916 Systolic blood pressure 2020-03-24 02:31:00 127 mm[Hg] Diastolic blood 2020-03-24 02:31:00 72 mm[Hg] NPI:1 [id number] pressure Heart rate 2020-03-24 02:31:00 69 /min NPI:1831 410738 Body temperature 2020-03-24 02:31:00 36.39 Priyanka Respiratory rate 2020-03-24 02:31:00 18 /min Oxygen saturation in 2020-03-24 02:31:00 97 /min Arterial blood by Pulse oximetry Systolic blood pressure 2020-03-23 21:35:00 100 mm[Hg] Diastolic blood 2020-03-23 21:35:00 59 mm[Hg] NPI:1 [id number] pressure Heart rate 2020-03-23 21:35:00 79 /min NPI:1831 812194 Body temperature 2020-03-23 21:35:00 36.78 Priyanka Respiratory rate 2020-03-23 21:35:00 18 /min Oxygen saturation in 2020-03-23 21:35:00 99 /min Arterial blood by Pulse oximetry Body weight 2020-03-23 09:41:00 76.613 kg NPI:1831 276301 BMI 2020-03-23 09:41:00 26.45 kg/m2 NPI:1831 020830 Body height 2020-03-23 03:43:00 170.2 cm NPI:1831 294200 Systolic blood pressure 2020-03-21 20:55:00 128 mm[Hg] Diastolic blood 2020-03-21 20:55:00 61 mm[Hg] NPI:1 861221627 pressure Heart rate 2020-03-21 20:55:00 75 /min NPI:1831 326221 Respiratory rate 2020-03-21 20:55:00 10 /min Oxygen saturation in 2020-03-21 20:55:00 98 /min Arterial blood by Pulse oximetry Body temperature 2020-03-21 20:03:00 37.83 Priyanka Body height 2020-03-21 20:03:00 170.2 cm NPI:1831 910372 Body weight 2020-03-21 20:03:00 76.204 kg NPI:1831 755071 BMI 2020-03-21 20:03:00 26.31 kg/m2 NPI:1831 182949 Systolic blood pressure 2020-03-07 20:50:00 118 mm[Hg] Diastolic blood 2020-03-07 20:50:00 65 mm[Hg] NPI:1 190905311 pressure Heart rate 2020-03-07 20:50:00 85 /min NPI:1831 792116 Body temperature 2020-03-07 20:50:00 36.39 Priyanka Respiratory rate 2020-03-07 20:50:00 18 /min Oxygen saturation in 2020-03-07 20:50:00 95 /min Arterial blood by Pulse oximetry Body height 2020-03-05 02:35:00 172.7 cm NPI:1831 530530 Body weight 2020-03-05 02:35:00 73.483 kg NPI:1831 630826 BMI 2020-03-05 02:35:00 24.63 kg/m2 NPI:1831 106688 Systolic blood pressure 2020-03-02 15:49:00 122 mm[Hg] Diastolic blood 2020-03-02 15:49:00 81 mm[Hg] NPI:1 360484572 pressure Heart rate 2020-03-02 15:49:00 89 /min NPI:1831 874219 Body temperature 2020-03-02 15:49:00 37.06 Priyanka Respiratory rate 2020-03-02 15:49:00 19 /min Oxygen saturation in 2020-03-02 15:49:00 96 /min Arterial blood by Pulse oximetry Body height 2020-03-01 00:54:00 170.2 cm NPI:1831 [id number] Body weight 2020-03-01 00:54:00 76.975 kg NPI:1831 [id number] BMI 2020-03-01 00:54:00 26.58 kg/m2 NPI:1831 [id number] Systolic blood pressure 2020-01-17 21:08:00 116 mm[Hg] Diastolic blood 2020-01-17 21:08:00 78 mm[Hg] NPI:1 [id number] pressure Heart rate 2020-01-17 21:08:00 88 /min NPI:1831 [id number] Body temperature 2020-01-17 21:08:00 36.72 Priyanka Respiratory rate 2020-01-17 21:08:00 18 /min Oxygen saturation in 2020-01-17 21:08:00 98 /min Arterial blood by Pulse oximetry Body height 2020-01-16 06:21:00 172.7 cm NPI:1831 [id number] Body weight 2020-01-16 04:35:00 83.462 kg NPI:1831 [id number] BMI 2020-01-16 04:35:00 27.98 kg/m2 NPI:[id number] Procedures Procedure Date / Time Performed Performing Clinician Sourc e XR LUMBAR SPINE 2 VW 2022-03-01 14:18:00 Angelika Aguilar EXTERNAL PROVIDER RECORDS 2021-11-19 06:01:00 Doctor Unassigned, No Name POCT GLUCOSE (AUTOMATED) 2021-11-02 22:49:00 Aida Shah NPI :[id number] POCT GLUCOSE (AUTOMATED) 2021-11-02 17:06:00 Aida Shah NPI :[id number] POCT GLUCOSE (AUTOMATED) 2021-11-02 13:30:00 Aiad Shah NPI :[id number] TROPONIN I 2021-11-02 09:29:00 Alexandra Hdz NPI:[id number] BASIC METABOLIC PANEL (NA, 2021-11-02 09:29:00 Sridhar Gordon K, CL, CO2, GLUCOSE, BUN, CREATININE, CA) CBC WITH DIFF 2021-11-02 09:29:00 Sridhar Gordon NPI:[id number] N-TERMINAL PRO-BNP 2021-11-02 09:29:00 Alexandra HdzHRitesh NPI:1 [id number] POCT GLUCOSE (AUTOMATED) 2021-11-02 01:27:00 Aida Shah NPI :[id number] POCT GLUCOSE (AUTOMATED) 2021-11-01 17:37:00 Aida Shah NPI :[id number] POCT GLUCOSE (AUTOMATED) 2021-11-01 13:40:00 Aida Shah NPI :[id number] POCT GLUCOSE (AUTOMATED) 2021-11-01 01:10:00 Alyssa Aida NPI :[id number] POCT GLUCOSE (AUTOMATED) 2021-10-31 22:28:00 AlyssaKeerthii NPI :[id number] POCT GLUCOSE (AUTOMATED) 2021-10-31 17:29:00 Martha Drake SALES MANAGEMENT TRAINEE I:[id number] TROPONIN I 2021-10-31 16:25:00 Alexandra Hdz NPI:[id number] TRANSTHORACIC ECHO (TTE) 2021-10-31 15:53:00 Alexandra Hdz COMPLETE W/ CONTRAST POCT GLUCOSE (AUTOMATED) 2021-10-31 13:39:00 Martha Drake SALES MANAGEMENT TRAINEE I:[id number] TROPONIN I 2021-10-31 10:08:00 Sarah Adorno NPI:[id number] 81 BASIC METABOLIC PANEL (NA, 2021-10-31 10:08:00 Sarah Adorno PI:[id number] K, CL, CO2, GLUCOSE, BUN, CREATININE, CA) LIPID PANEL (69321)(TOTAL 2021-10-31 10:08:00 Alexandra Hdz CHOLESTEROL, TRIGLYCERIDES, HDL) CBC WITH DIFF 2021-10-31 10:08:00 Sarah Adorno NPI:[id number] 81 URINALYSIS 2021-10-31 10:08:00 Sarah Adorno NPI:[id number] 81 N-TERMINAL PRO-BNP 2021-10-31 10:08:00 Alexandra Hdz NPI:1 [id number] TROPONIN I 2021-10-31 06:17:00 Sarah Adorno NPI:[id number] 81 XR CHEST 1 VW 2021-10-31 01:30:56 Martha Drake NPI:[id number] LIPASE 2021-10-31 01:25:00 Martha Drake NPI:[id number] TROPONIN I 2021-10-31 01:25:00 Martha Drake NPI:[id number] 781 COMP. METABOLIC PANEL 2021-10-31 01:25:00 Martha Drake NPI:1 [id number] ([id number]) CBC WITH DIFF 2021-10-31 01:25:00 Martha Drake NPI:[id number] GLYCOSYLATED HEMOGLOBIN 2021-10-31 01:25:00 Sarah Adorno (A1C) PROTHROMBIN TIME / INR 2021-10-31 01:25:00 Martha Drake ACTIVATED PARTIAL THRMPLAS 2021-10-31 01:25:00 Martha Drake JACEK N-TERMINAL PRO-BNP 2021-10-31 01:25:00 Martha Drake NPI:[id number] COVID-19 (ID NOW RAPID 2021-10-31 01:25:00 Martha Drake TESTING) LAB ONLY COVID 2021-10-31 01:25:00 Martha Drake NPI:[id number] INTERPRETATION HB ECG ROUTINE & RHYTHM 2021-10-31 01:20:03 Martha Drake NPI :[id number] STRIP URINALYSIS 2021-04-25 21:01:00 Nallely Bhat NPI:[id number] XR LUMBAR SPINE 2 VW 2021-04-25 18:41:00 Nallely Bhat NPI :[id number] XR HIPS 2 VW LEFT 2021-04-25 18:41:00 Nallely Bhat NPI:18 [id number] CONSENT/REFUSAL FOR 2021-04-25 15:43:06 Doctor Unassigned, No SALES MANAGEMENT TRAINEE I:[id number] DIAGNOSIS AND TREATMENT Name CT CERVICAL SPINE WO 2020-06-26 09:35:01 VidalJarrellmary Kumar NPI:[id number] LUMBAR SPINE WO CONTRAST 2020-06-26 09:35:[address] THORACIC SPINE WO 2020-06-26 09:35:01 Nandinirolo Jarrellkili S NPI:18 [id number] CONTRAST UNILATERAL DUPLEX SCAN OF 2020-05-24 14:53:40 Charanjit Heck SALES MANAGEMENT TRAINEE I:[id number] ARTERY BY VASCULAR LAB XR ANKLE 3+ VW LEFT 2020-05-24 13:22:26 Charanjit Heck NPI:[id number] HEPATIC FUNCTION PANEL 2020-05-24 13:13:00 Charanjit Heck NPI:1 [id number] ([id number]) (ALB,T.PRO,BILI T,BU/BC,ALT,AST,ALK PHOS) BASIC METABOLIC PANEL (NA, 2020-05-24 13:13:00 Charanjit Heck PI:[id number] K, CL, CO2, GLUCOSE, BUN, CREATININE, CA) CBC WITH DIFFERENTIAL 2020-05-24 13:13:00 Charanjit Heck NPI:18 [id number] PROTHROMBIN TIME / INR 2020-05-24 13:13:00 Charanjit Heck NPI:1 [id number] ACTIVATED PARTIAL THRMPLAS 2020-05-24 13:13:00 Charanjit Heck PI:[id number] JACEK NOTICE OF PRIVACY PRACTICES 2020-05-24 11:38:26 Doctor Tc seymour No Name CONSENT/REFUSAL FOR 2020-05-24 11:35:52 Doctor Blaise, No SALES MANAGEMENT TRAINEE I:[id number] DIAGNOSIS AND TREATMENT Name POCT GLUCOSE (AUTOMATED) 2020-03-23 22:32:00 Sandra Jamel Justina NPI :[id number] POCT GLUCOSE (AUTOMATED) 2020-03-23 18:07:00 Jamel Flores NPI :[id number] POCT GLUCOSE (AUTOMATED) 2020-03-23 14:57:00 Jamel Flores NPI :[id number] ECHO ROUTINE W/DOPPLER 2020-03-23 13:33:57 Tereza Cano NPI:1 [id number] COLOR EKG-12 LEAD 2020-03-23 12:56:59 Jamel Flores NPI:[id number] 81 MAGNESIUM 2020-03-23 11:15:00 Tereza Cano NPI:[id number] 81 TROPONIN I 2020-03-23 11:15:00 Tereza Cano NPI:[id number] 81 BASIC METABOLIC PANEL (NA, 2020-03-23 11:15:00 Tereza Cano N PI:[id number] K, CL, CO2, GLUCOSE, BUN, CREATININE, CA) PROTHROMBIN TIME / INR 2020-03-23 11:15:00 Tereza Cano NPI:1 [id number] ACTIVATED PARTIAL THRMPLAS 2020-03-23 11:15:00 Tereza Cano N PI:[id number] JACEK EKG-12 LEAD 2020-03-23 07:51:19 Flores Jamel Justina NPI:[id number] 81 MAGNESIUM 2020-03-23 05:55:00 Tereza Cano NPI:[id number] 81 TROPONIN I 2020-03-23 05:55:00 Tereza Cano NPI:[id number] 81 BASIC METABOLIC PANEL (NA, 2020-03-23 05:55:00 Tereza Cano Kvng PI:[id number] K, CL, CO2, GLUCOSE, BUN, CREATININE, CA) LIPID PANEL (28602)(TOTAL 2020-03-23 05:55:00 Tereza Cano SALES MANAGEMENT TRAINEE I:[id number] CHOLESTEROL, TRIGLYCERIDES, HDL) PROTHROMBIN TIME / INR 2020-03-23 02:55:00 Sallie Eckert NPI:1 [id number] ACTIVATED PARTIAL THRMPLAS 2020-03-23 02:55:00 Sallie Eckert PI:[id number] JACEK XR CHEST 2 VW 2020-03-23 01:52:37 Esteban Singletary NPI:[id number] 81 CORONAVIRUS COVID-19 2020-03-23 00:50:00 Esteban Singletary NPI:[id number] TESTING FERRITIN SERUM 2020-03-22 23:36:00 Arminda Canoi NPI:[id number] 81 TROPONIN I 2020-03-22 23:36:00 Esteban Singletary NPI:[id number] 81 COMP. METABOLIC PANEL 2020-03-22 23:36:00 Esteban Singletary NPI:18 [id number] ([id number]) IRON PANEL 2020-03-22 23:36:00 Arminda Canoi NPI:[id number] 81 CBC WITH DIFFERENTIAL 2020-03-22 23:36:00 Esteban Singletary NPI:18 [id number] N-TERMINAL PRO-BNP 2020-03-22 23:36:00 Esteban Singletary NPI:[id number] EKG-12 LEAD 2020-03-22 23:08:53 Esteban Singletary NPI:[id number] 81 EKG-12 LEAD 2020-03-22 23:08:15 Esteban Singletary NPI:[id number] 81 XR CHEST 1 VW 2020-03-21 20:42:35 Myles Harry NPI:[id number] 781 LACTIC ACID WHOLE BLOOD 2020-03-21 20:38:00 BowenMyles garcia NPI :[id number] LIPASE 2020-03-21 20:19:00 Myles Harry NPI:[id number] 781 TROPONIN I 2020-03-21 20:19:00 Myles Harry NPI:[id number] 781 COMP. METABOLIC PANEL 2020-03-21 20:19:00 Myles Harry NPI:1 [id number] (30295) PROTHROMBIN TIME / INR 2020-03-21 20:19:00 KamrynMyles N-TERMINAL PRO-BNP 2020-03-21 20:19:00 KamrynMyles garcia NPI:[id number] CORONAVIRUS COVID-19 2020-03-21 20:19:00 KamrynMyles NPI:18 [id number] TESTING EKG-12 LEAD 2020-03-21 20:11:28 KamrynMyles garcia NPI:[id number] 781 POCT GLUCOSE (AUTOMATED) 2020-03-07 20:56:00 Sarah Adorno NPI :[id number] POCT GLUCOSE (AUTOMATED) 2020-03-07 15:34:00 Sarah Adorno NPI :[id number] POCT GLUCOSE (AUTOMATED) 2020-03-07 12:56:00 Sarah Adorno NPI :[id number] URIC ACID 2020-03-07 10:14:00 Holland Briscoe NPI:[id number] TROPONIN I 2020-03-07 10:14:00 Lulu Harris NPI:[id number] 81 BASIC METABOLIC PANEL (NA, 2020-03-07 10:14:00 Sarah Adorno PI:[id number] K, CL, CO2, GLUCOSE, BUN, CREATININE, CA) CBC WITH DIFFERENTIAL 2020-03-07 10:14:00 Sarah Adorno NPI:18 [id number] N-TERMINAL PRO-BNP 2020-03-07 10:14:00 Lulu Harris NPI:[id number] POCT GLUCOSE (AUTOMATED) 2020-03-06 21:16:00 Sarah Adorno NPI :[id number] POCT GLUCOSE (AUTOMATED) 2020-03-06 16:10:00 Sarah Adorno NPI :[id number] POCT GLUCOSE (AUTOMATED) 2020-03-06 12:38:00 Sarah Adorno NPI :[id number] TROPONIN I 2020-03-06 08:51:00 Lulu Harris NPI:[id number] 81 BASIC METABOLIC PANEL (NA, 2020-03-06 08:51:00 Sarah Adorno PI:[id number] K, CL, CO2, GLUCOSE, BUN, CREATININE, CA) CBC WITH DIFFERENTIAL 2020-03-06 08:51:00 Sarah Adorno NPI:18 [id number] POCT GLUCOSE (AUTOMATED) 2020-03-06 01:16:00 Sarah Adorno NPI :[id number] TROPONIN I 2020-03-05 23:25:00 Sarah Adorno NPI:[id number] 81 POCT GLUCOSE (AUTOMATED) 2020-03-05 21:14:00 Sarah Adorno NPI :[id number] POCT GLUCOSE (AUTOMATED) 2020-03-05 16:39:00 DevintylerrosalioSarah NPI :[id number] POCT GLUCOSE (AUTOMATED) 2020-03-05 12:47:00 Sarah Adorno NPI :[id number] TROPONIN I 2020-03-05 09:50:00 Sarah Adorno NPI:[id number] 81 BASIC METABOLIC PANEL (NA, 2020-03-05 09:50:00 Sarah Adorno PI:[id number] K, CL, CO2, GLUCOSE, BUN, CREATININE, CA) CBC WITH DIFFERENTIAL 2020-03-05 09:50:00 Julio Cesar Cherelleazra NPI:18 [id number] EKG-12 LEAD 2020-03-05 00:36:54 Bobo Urrutia NPI:[id number] 81 EKG-12 LEAD 2020-03-05 00:31:03 Bobo Urrutia C NPI:[id number] 81 CORONAVIRUS COVID-19 2020-03-05 00:03:00 Charanjit Heck NPI:[id number] TESTING XR CHEST 1 VW 2020-03-04 23:58:59 Charanjit Heck NPI:[id number] 81 LIPASE 2020-03-04 23:29:00 Charanjit Heck NPI:[id number] 81 TROPONIN I 2020-03-04 23:29:00 Charanjti Hekc NPI:[id number] 81 HEPATIC FUNCTION PANEL 2020-03-04 23:29:00 Charanjit Heck NPI:1 [id number] ([id number]) (ALB,T.PRO,BILI T,BU/BC,ALT,AST,ALK PHOS) BASIC METABOLIC PANEL (NA, 2020-03-04 23:29:00 Charanjit Heck PI:[id number] K, CL, CO2, GLUCOSE, BUN, CREATININE, CA) CBC WITH DIFFERENTIAL 2020-03-04 23:29:00 Charanjit Heck NPI:18 [id number] PROTHROMBIN TIME / INR 2020-03-04 23:29:00 Charanjit Heck NPI:1 [id number] ACTIVATED PARTIAL THRMPLAS 2020-03-04 23:29:00 Charanjit Heck PI:[id number] JACEK N-TERMINAL PRO-BNP 2020-03-04 23:29:00 Charanjit Heck NPI:[id number] EKG-12 LEAD 2020-03-04 23:15:42 Charanjit Heck NPI:[id number] 81 EKG-12 LEAD 2020-03-04 23:10:23 Charanjit Heck NPI:[id number] 81 EMERGENCY DEPARTMENT 2020-03-04 05:01:00 Doctor Unassigned, No N PI:[id number] DOCUMENTS Name POCT GLUCOSE (AUTOMATED) 2020-03-02 15:52:00 Lulu Harris NPI :[id number] POCT GLUCOSE (AUTOMATED) 2020-03-02 12:39:00 Lulu Harris NPI :[id number] MAGNESIUM 2020-03-02 08:57:00 Ivory Leon NPI:[id number] 81 BASIC METABOLIC PANEL (NA, 2020-03-02 08:57:00 Carolyn, Adaelk Norris PI:[id number] K, CL, CO2, GLUCOSE, BUN, CREATININE, CA) N-TERMINAL PRO-BNP 2020-03-02 08:57:00 Angel Leonalek NPI:[id number] POCT GLUCOSE (AUTOMATED) 2020-03-01 20:39:00 Lulu Harris NPI :[id number] MAGNESIUM 2020-03-01 08:43:00 KunalannalisaLulu NPI:[id number] 81 TROPONIN I 2020-03-01 08:43:00 Angel Leonalek NPI:[id number] 81 BASIC METABOLIC PANEL (NA, 2020-03-01 08:43:00 Lulu Harris PI:[id number] K, CL, CO2, GLUCOSE, BUN, CREATININE, CA) CBC WITH DIFFERENTIAL 2020-03-01 08:43:00 Lulu Harris NPI:18 [id number] N-TERMINAL PRO-BNP 2020-03-01 08:43:00 Ivory Leon NPI:[id number] VITAMIN B12, LEVEL 2020-03-01 03:49:00 CarolynIvory NPI:[id number] FOLATE 2020-03-01 03:49:00 CarolynIvory NPI:[id number] 81 SEDIMENTATION RATE 2020-03-01 03:49:00 Ivory Leon NPI:[id number] POCT GLUCOSE (AUTOMATED) 2020-03-01 03:39:00 Lulu Harris NPI :[id number] PHOSPHORUS 2020-03-01 02:28:00 Lulu Harris NPI:[id number] 81 URIC ACID 2020-03-01 02:28:00 Ivory Leon NPI:[id number] 81 TROPONIN I 2020-03-01 02:28:00 Ivory Leon NPI:[id number] 81 HEPATIC FUNCTION PANEL 2020-03-01 02:28:00 Ivory Leon NPI:1 [id number] (06589) (ALB,T.PRO,BILI T,BU/BC,ALT,AST,ALK PHOS) PROTHROMBIN TIME / INR 2020-03-01 02:28:00 Ivory Leon NPI:1 [id number] N-TERMINAL PRO-BNP 2020-03-01 02:28:00 Zenaidamilan Lulu NPI:[id number] PROCALCITONIN 2020-03-01 02:28:00 Ivory Leon NPI:[id number] 81 EKG-12 LEAD 2020-03-01 01:54:29 Ivory Leon NPI:[id number] 81 EKG-12 LEAD 2020-02-29 23:16:21 Bobo Urrutia NPI:[id number] 81 XR CHEST 1 VW COVID 2020-02-29 23:14:25 Bobo Urrutia NPI:[id number] EKG-12 LEAD 2020-02-29 23:13:50 Bobo Urrutia NPI:[id number] 81 LACTIC ACID WHOLE BLOOD 2020-02-29 22:21:00 Bobo Urrutia CORONAVIRUS COVID-19 2020-02-29 22:20:00 Bobo Urrutia NPI:[id number] TESTING CREATINE KINASE 2020-02-29 22:14:00 Ivory Leon NPI:[id number] 81 URIC ACID 2020-02-29 22:14:00 Ivory Leon NPI:[id number] 81 LIPASE 2020-02-29 22:14:00 Bobo Urrutia NPI:[id number] 81 MAGNESIUM 2020-02-29 22:14:00 Ivory Leon NPI:[id number] 81 TROPONIN I 2020-02-29 22:14:00 Bobo Urrutia NPI:[id number] 81 THYROID STIMULATING HORMONE 2020-02-29 22:14:00 Ivory Leon BASIC METABOLIC PANEL (NA, 2020-02-29 22:14:00 Bobo Urrutia N PI:[id number] K, CL, CO2, GLUCOSE, BUN, CREATININE, CA) CBC WITH DIFFERENTIAL 2020-02-29 22:14:00 Bobo Urrutia NPI:18 [id number] GLYCOSYLATED HEMOGLOBIN 2020-02-29 22:14:00 Ivory Leon (A1C) N-TERMINAL PRO-BNP 2020-02-29 22:14:00 Ivory Leon NPI:[id number] EKG-12 LEAD 2020-02-29 21:59:12 Bobo Urrutai NPI:[id number] 81 EKG-12 LEAD 2020-02-29 21:48:49 Bobo Urrutia NPI:[id number] 81 EMERGENCY DEPARTMENT 2020-02-29 05:01:00 Doctor Unassigned, Berta N PI:[id number] DOCUMENTS Name POCT GLUCOSE (AUTOMATED) 2020-01-17 18:15:00 Sarah Adorno NPI :[id number] TROPONIN I 2020-01-17 16:31:00 Sarah Adorno NPI:[id number] 81 ACTIVATED PARTIAL THRMPLAS 2020-01-17 16:31:00 Ivory Leon PI:[id number] JACEK POCT GLUCOSE (AUTOMATED) 2020-01-17 11:56:00 Sarah Adorno NPI :[id number] TROPONIN I 2020-01-17 09:52:00 Sarah Adorno NPI:[id number] 81 BASIC METABOLIC PANEL (NA, 2020-01-17 09:52:00 Sarah Adorno PI:[id number] K, CL, CO2, GLUCOSE, BUN, CREATININE, CA) CBC WITH DIFFERENTIAL 2020-01-17 09:52:00 Sarah Adorno NPI:18 [id number] ACTIVATED PARTIAL THRMPLAS 2020-01-17 09:52:00 Sarah Adorno PI:[id number] JACEK POCT GLUCOSE (AUTOMATED) 2020-01-16 23:59:00 Sarah Adorno NPI :[id number] EKG-12 LEAD 2020-01-16 22:15:50 Sarah Adorno NPI:[id number] 81 TROPONIN I 2020-01-16 20:04:00 Sarah Adorno NPI:[id number] 81 ACTIVATED PARTIAL THRMPLAS 2020-01-16 20:04:00 Ayo Scruggs PI:[id number] JACEK POCT GLUCOSE (AUTOMATED) 2020-01-16 17:05:00 Sarah Adorno NPI :[id number] POCT GLUCOSE (AUTOMATED) 2020-01-16 13:38:00 Sarah Adorno NPI :[id number] TROPONIN I 2020-01-16 11:11:00 AliceCherelle santamariaazra NPI:[id number] 81 LIPID PANEL (27324)(TOTAL 2020-01-16 11:11:00 Julio Cesar Sarah SALES MANAGEMENT TRAINEE I:[id number] CHOLESTEROL, TRIGLYCERIDES, HDL) ACTIVATED PARTIAL THRMPLAS 2020-01-16 11:11:00 Sarah Adorno PI:[id number] JACEK CRITICAL CARE 2020-01-16 05:48:18 Charanjit Heck NPI:[id number] 81 XR CHEST 1 VW 2020-01-16 04:46:44 Charanjit Heck NPI:[id number] 81 TROPONIN I 2020-01-16 04:38:00 Charanjit Heck NPI:[id number] 81 HEPATIC FUNCTION PANEL 2020-01-16 04:38:00 Charanjit Heck NPI:1 [id number] (39274) (ALB,T.PRO,BILI T,BU/BC,ALT,AST,ALK PHOS) BASIC METABOLIC PANEL (NA, 2020-01-16 04:38:00 Charanjit Heck PI:[id number] K, CL, CO2, GLUCOSE, BUN, CREATININE, CA) CBC WITH DIFFERENTIAL 2020-01-16 04:38:00 Charanjit Heck NPI:18 [id number] GLYCOSYLATED HEMOGLOBIN 2020-01-16 04:38:00 aSrah Adorno (A1C) PROTHROMBIN TIME / INR 2020-01-16 04:38:00 Charanjit Heck NPI:1 [id number] ACTIVATED PARTIAL THRMPLAS 2020-01-16 04:38:00 Charanjit Heck PI:[id number] JACEK N-TERMINAL PRO-BNP 2020-01-16 04:38:00 Charanjit Heck NPI:[id number] EKG-12 LEAD 2020-01-16 04:37:48 Charanjit Heck NPI:[id number] 81 EKG-12 LEAD 2020-01-16 04:35:35 Charanjit Heck NPI:[id number] 81 AUTHORIZATION FOR RELEASE 2019-07-12 05:01:00 Doctor Unassigned, No OF PHI Name Encounters Start End Encounter Admission Attending Care Care Encounter Source Date/Time Date/Time Type Type Clinicians Facility Department ID 2022-03-06 Outpatient [facility] [id number] NPI:152 08:51:10 [id number] 2021-12-16 Inpatient SERA Villavicencio [id number] [facility] 11:30:00 Jim [facility] 2021-12-16 Outpatient [facility] [id number] NPI:174 09:19:01 [id number] 2021-12-11 Outpatient Millender, [facility]LMLC ST[facility] [id number] NPI:174 14:38:21 Anneliese [id number] 2021-12-11 Outpatient Millender, STLMLC ST[facility] [id number] NPI:174 11:50:18 Anneliese 41693 [id number] 2021-09-16 Emergency [facility] [id number] NPI:183 00:23:34 [id number] 2324-10-29 Emergency [facility] [id number] NPI:183 11:42:35 [id number] 4149-10-29 Emergency [facility] [id number] NPI:183 05:40:48 [id number] 3950-04-20 2022-03-10 Inpatient U BLADE, [facility] CAR [id number] [facility] 06:12:00 22:30:00 BRODIE 2022-03-01 2022-03-[address] [facility] ERT [id number] NPI:183 06:52:00 12:04:00 ANGELIKA [id number] 2022-03-01 2022-03-[address] [facility] 1.2.840.114 [id number] NPI:183 06:52:00 12:04:00 Angelika RAMSEY 350.1.13.10 [id number] [place] 4.2.7.2.686 [place] [id number] 2021-12-25 2021-12-25 Inpatient CONNER, [facility] [id number] [place] 00:00:00 00:00:[address] 2021-12-19 2021-12-25 [id number] [place] 00:00:00 00:00:[address] 2021-12-24 2021-12-24 [facility] [id number] NPI:174 00:00:00 00:00:00 [id number] 2021-12-20 2021-12-20 Inpatient ATTAR, [facility] [id number] [place] 00:00:00 00:00:[address] 2021-12-17 2021-12-17 [facility] [id number] NPI:174 00:00:00 00:00:00 [id number] 2021-12-16 2021-12-16 [facility] [id number] NPI:174 00:00:00 00:00:00 [id number] 2021-11-19 2021-11-19 Orders Doctor ROBERT 1.2.840.114 [id number] NPI:183 00:00:00 00:00:00 Only Unassigned, ASHLEIGH 350.1.13.[id number] [facility] 4.2.7.2.686 [id number] 2021-11-04 2021-11-04 Transition SHAREE Maria 1.2.840.114 [id number] NPI:183 00:00:00 00:00:00 of Care Supa Adela GREWAL 350.1.13.10 [id number] [place] 42.7.2.686 [id number] 2021-10-30 2021-11-02 Inpatient X ALYSSA [facility] [id number] NPI:183 19:14:00 18:15:00 AIDA [id number] 1 2021-10-30 2021-11-02 [facility] 1.2.840. 114 [id number] NPI:183 19:14:00 18:15:00 Encounter Aida Shah 350.1.13.10 [id number] [place] 42.7.2.686 [place] [id number] 2021-05-17 2021-05-17 Letter ROBERT Monae 1.2.840.114 [id number] NPI:183 00:00:00 00:00:00 (Out) Patient ASHLEIGH 350.1.13.10 [id number] [facility] 4.2.7.2.686 Have A [id number] 2021-04-25 2021-04-25 Emergency Cece, TRAUMA 1.2.825.347 [id number] NPI:183 10:43:00 17:38:00 [facility] 350.1.13.10 1 [id number] Ceasar 4.2.7.2.686 [id number] 2020-06-26 2020-06-26 Emergency [facility] 1.2.777.861 [id number] 03:50:00 06:45:00 Martha Ramsey 350.1.13.10 [place] 4.2.7.2.686 [place] [id number] 2020-06-26 2020-06-26 [facility] 1.2.290.625 [id number] NPI:183 03:50:00 06:45:00 Martha Ramsey 350.1.13.10 [id number] [place] 4.2.7.2.686 [place] [id number] 2020-05-24 2020-05-24 Emergency [facility] 1.2.928.017 [id number] 06:40:47 10:54:00 Charanjit Rmasey 350.1.13.10 [place] 4.2.7.2.686 [place] [id number] 2020-05-24 2020-05-24 [facility] 1.2.294.607 [id number] NPI:183 06:40:47 10:54:00 Charanjit [place] 350.1.13.10 1 [id number] [place] 4.2.7.2.686 [place] [id number] 084 2020-03-29 2020-03-29 Letter Jamel Flores 1.2.840.114 [id number] 00:00:00 00:00:00 (Out) Justina Sotelo 350.1.13.10 [facility] 4.2.7.2.686 [id number] 2020-03-29 2020-03-29 Jamel Dunn 1.2.840.114 [id number] NPI:183 00:00:00 00:00:00 (Out) Justina Sotelo 350.1.13.10 13 [id number] [facility] 4.2.7.2.686 [id number] 2020-03-26 2020-03-26 Transition Sharee George 1.2.840.114 [id number] 00:00:00 00:00:00 of Care Sherrellbritany Hahny 350.1.13.10 [place] 4.2.7.2.686 [id number] 2020-03-26 2020-03-26 Transition Belinda Georgekvng 1.2.840.114 [id number] NPI:183 00:00:00 00:00:00 of Care Sherrell Hahny 350.1.13.10 13 [id number] [place] 4.2.7.2.686 [id number] 2020-03-22 2020-03-23 Emergency Sallie Eckert 1..840. 114 [id number] NPI:183 18:02:47 21:55:00 Jamel Flores Ashleigh 350.1.13.10 [id number] [facility] 4.2.7.2.686 [id number] 2020-03-22 2020-03-23 Outpatient X SANDRA JAMEL [facility] [id number] NPI:183 18:02:47 21:55:00 [id number] 2020-03-21 2020-03-21 Emergency Kamryn, [facility] 1.2.840.114 [id number] NPI:183 15:02:08 17:16:00 Myles Ramsey 350.1.13.10 1 [id number] [place] 4.2.7.2.686 [place] [id number] 2020-03-21 2020-03-21 Emergency X KAMRYN, [facility] ERT [id number] NPI:183 15:02:08 17:16:00 MYLES [id number] 1 2020-03-13 2020-03-13 Outpatient Raju_P MMG G [id number] NPI:167 05:24:00 05:24:00 0428 [id number] 5 2020-03-08 2020-03-08 Transition Sharee Cool 1.2.840.114 [id number] NPI:183 00:00:00 00:00:00 of Care Prema Grewal 350.1.13.10 1 [id number] [place] 4.2.7.2.686 [id number] 403 2020-03-04 2020-03-07 [facility] Charanjit Heck [facility] 1.2.840.1 14 [id number] NPI:183 18:01:05 18:00:00 Encounter Sarah Adorno [place] 350.1.13.10 [id number] [place] 4.2.7.2.686 [place] [id number] 081 2020-03-04 2020-03-07 [facility] [id number] NPI:183 18:01:05 18:00:00 SARAH [id number] 1 2020-03-03 2020-03-03 Transition Sharee Silva 1.2.840.114 [id number] NPI:183 00:00:00 00:00:00 of Care Isatu Grewal 350.1.13.10 13 [id number] [place] 4.2.7.2.686 [id number] 403 2020-02-29 2020-03-02 [facility] Bobo Urrutia [facility] 1.2.840.11 4 [id number] NPI:183 16:53:09 12:18:00 Encounter KunalannalisaLulu 350.1.13.10 [id number] [place] 4.2.7.2.686 [place] [id number] 081 2020-02-29 2020-03-[address] [facility] ZEFERINO [id number] NPI:183 16:53:09 12:18:00 LULU [id number] 1 2020-02-15 2020-02-15 Outpatient R [facility] [id number] NPI:183 11:30:00 11:30:00 ROSEMARY [id number] 1 2020-02-15 2020-02-[address] [facility] 12.840.114 [id number] NPI:183 08:13:42 08:43:42 ne Visit Rosemary Ramsey 350.1.13.10 [id number] [place] 4.2.7.2.686 [facility] [id number] [facility] [address] Building 2020-01-18 2020-01-18 Transition Sharee Harvey 1.2.840.114 [id number] [id number] NPI:183 00:00:00 00:00:00 of Care Ana M Hahny 350.1.13.10 13 72318 [place] 4.2.7.2.686 [id number] 403 2020-01-15 2020-01-17 [facility] Charanjit Heck [facility] 1.2.840.1 14 [id number] NPI:183 22:33:37 16:58:00 Encounter Sarah Adornoton 350.1.13.10 [id number] [place] .2.7.2.686 [place] [id number] 081 2020-01-15 2020-01-17 Outpatient X JULIO CESAR [facility] [id number] NPI:183 22:33:37 16:58:00 [id number] 1 2019-10-07 2019-10-07 [facility] [id number] NPI:174 10:48:00 10:48:[address] Medicine 2019-10-05 2019-10-05 [facility] 28 [id number] NPI:174 16:06:00 16:06:[address] Medicine 2019-07-27 2019-07-[address] [facility] 1.2.840.114 [id number] NPI:183 00:00:00 00:00:00 Rosemary Ramsey 350.1.13.10 1 [id number] [place] .2.7.2.686 [facility] [id number] [facility] 220 [facility] 2019-07-12 2019-07-12 [facility] [id number] NPI:174 16:24:00 16:24:[address] Medicine 2019-07-12 2019-07-12 Jose Alejandro JONES 1.2.840.114 [id number] NPI:183 00:00:00 00:00:00 Only Unassigned, ASHLEIGH 350.1.13.10 [id number] [place] 48[address].2.7.2.686 [id number] 2019-07-06 2019-07-06 Outpatient Ko Braz[facility]ian[facility] 26 [id number] NPI:174 14:00:00 14:00:00 [place] [id number] [facility] Medicine Medicine Results Test Description Test Time Test Comments Results Result Comments Source SARS-CoV-2 (COVID-19) RNA [Presence] in Respiratory sp ecimen by 2021-12-20 07:04:48 REI with probe detection Test Item Value Reference Range Interpretation Comme nts SARS-CoV-2 (COVID-19) RNA [Presence] in Respiratory Not detected No t-Detected specimen by ERI with probe detection (test code = 36090-4) 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 (test code = 28714-4) Whether the patient has symptoms related to condition of interest (test code = 54483-1) Patient was hospitalized because of this condition (test code = 16897-2) Whether the patient was admitted to intensive care unit (ICU) for condition of interest (test code = 01778-7) Whether patient resides in a congregate care setting (test code = 36782-9) POCT GLUCOSE (AUTOMATED)2021-11-02 22:57:12 Test Item Value Reference Range Interpretation Comments POCT GLU (test code = 2348008065) 224 mg/dL 70-110 H Lab Interpretation (test code = Abnormal 05745-6) NPI:[id number] LEAD ROUTINE [id number] 22:37:57 Test Item Value Reference Range Interpretation Comments Lab Interpretation (test code = Abnormal 37253-6) NPI:[id number] GLUCOSE (AUTOMATED)2021-11-02 17:43:02 Test Item Value Reference Range Interpretation Comments POCT GLU (test code = 4544100937) 264 mg/dL 70-110 H Lab Interpretation (test code = Abnormal 82581-9) NPI:[id number] [id number] 15:07:47 Test Item Value Reference Interpretation Comments Range TROPONIN I (test 0.064 ng/mL See_Comment H [Automated code = 3877685521) message] The system which generated this result [...] biotin. Lab Interpretation Abnormal (test code = 14290-7) NPI:[id number] [id number] 15:04:26 Test Item Value Reference Range Interpretation Comments NT-proBNP (test code 800 pg/mL See_Comment H [Autom ated = 1750968267) message] The system which generated this result transmitted reference range : <=450. The reference range was not used to interpret this result as normal/abnormal . ALYSSA (test code = ALYSSA) Biotin has been reported to cause a negative bias, interpret results relative to patient's use of biotin. Lab Interpretation Abnormal (test code = 45845-9) NPI:[id number] GLUCOSE (AUTOMATED)2021-11-02 13:36:38 Test Item Value Reference Range Interpretation Comments POCT GLU (test code = 3687250747) 185 mg/dL 70-110 H Lab Interpretation (test code = Abnormal 79572-2) NPI:[id number] METABOLIC PANEL (NA, K, CL, CO2, GLUCOSE, BUN, CREATININE, CA)2021-11-02 10:26:43 Test Item Value Reference Range Interpretation Comments NA (test code = 136 mmol/L 135-145 5874267091) K (test code = 4.0 mmol/L 3.5-5.0 8125228389) CL (test code = 99 mmol/L 98-108 1509934923) CO2 TOTAL (test code = 27 mmol/L 23-31 0518108193) AGAP (test code = 2-16 8111719261) BUN (test code = 30 mg/dL 7-23 H 7030240172) GLUCOSE (test code = 165 mg/dL 70-110 H 2707452479) CREATININE (test code = 1.42 mg/dL 0.60-1.25 H 9618784936) CALCIUM (test code = 9.5 mg/dL 8.6-10.6 6145860737) eGFR (test code = mL/min/1.73m2 3763642912) ALYSSA (test code = ALYSSA) Association of [...] tests). Lab Interpretation Abnormal (test code = 54188-2) NPI:[id number] WITH [id number] 10:01:58 Test Item Value Reference Range Interpretation Comments WBC (test code = See_Comment [Automated 5008-2) message] The sy stem which generated this [...] RDW-SD (test code = 39.8 fL 38.5-51.6 07446-5) RDW-CV (test code = 11.5 % 12.1-15.4 L 788-0) PLT (test code = See_Comment [Automated 777-3) message] The sy stem which generated this result transmitted reference range : 150 - 328 10*3/ ?L. The reference r corey was not used to interpret this result as normal/abnormal . MPV (test code = 10.5 fL 9.8-13.0 00191-4) NRBC/100 WBC (test See_Comment [Automat ed code = 9772198106) message] The system which generated this result transmitted reference range : 0.0 - 10.0 /100 WBCs. The refer ence range was not u sed to interpret th is result as normal/abnormal . NRBC x10^3 (test code <0.01 See_Comment [Auto mated = 5747008383) message] The s ystem which generated this result transmitted reference range : 10*3/?L. The reference range was not used to interpret this result as normal/abnormal . GRAN MAT (NEUT) % 59.3 % (test code = 770-8) IMM GRAN % (test code 0.30 % = 1606003603) LYMPH % (test code = 25.0 % 736-9) MONO % (test code = 10.7 % 5905-5) EOS % (test code = 4.1 % 713-8) BASO % (test code = 0.6 % 706-2) GRAN MAT x10^3(ANC) 4.19 10*3/uL 1.99-6.95 (test code = 4084406547) IMM GRAN x10^3 (test <0.03 0.00-0.06 code = 1118375227) LYMPH x10^3 (test code 1.77 10*3/uL 1.09-3.23 = 731-0) MONO x10^3 (test code 0.76 10*3/uL 0.36-1.02 = 742-7) EOS x10^3 (test code = 0.29 10*3/uL 0.06-0.53 711-2) BASO x10^3 (test code 0.04 10*3/uL 0.01-0.09 = 704-7) Lab Interpretation Abnormal (test code = 26308-9) NPI:[id number] GLUCOSE (AUTOMATED)2021-11-02 01:29:56 Test Item Value Reference Range Interpretation Comments POCT GLU (test code = 7554583067) 167 mg/dL 70-110 H Lab Interpretation (test code = Abnormal 34762-3) NPI:[id number] GLUCOSE (AUTOMATED)2021-11-01 17:40:19 Test Item Value Reference Range Interpretation Comments POCT GLU (test code = 7360065965) 193 mg/dL 70-110 H Lab Interpretation (test code = Abnormal 71235-2) NPI:[id number] GLUCOSE (AUTOMATED)2021-11-01 13:44:28 Test Item Value Reference Range Interpretation Comments POCT GLU (test code = 5714024344) 200 mg/dL 70-110 H Lab Interpretation (test code = Abnormal 55194-6) NPI:[id number] GLUCOSE (AUTOMATED)2021-11-01 01:38:43 Test Item Value Reference Range Interpretation Comments POCT GLU (test code = 3499740754) 177 mg/dL 70-110 H Lab Interpretation (test code = Abnormal 41425-8) NPI:[id number] GLUCOSE (AUTOMATED)2021-10-31 22:39:43 Test Item Value Reference Range Interpretation Comments POCT GLU (test code = 5191262599) 174 mg/dL 70-110 H Lab Interpretation (test code = Abnormal 96168-2) NPI:[id number] GLUCOSE (AUTOMATED)2021-10-31 17:40:22 Test Item Value Reference Range Interpretation Comments POCT GLU (test code = 5181776415) 224 mg/dL 70-110 H Lab Interpretation (test code = Abnormal 12754-2) NPI:[id number] [id number] 17:14:58 Test Item Value Reference Interpretation Comments Range TROPONIN I (test 0.080 ng/mL See_Comment H [Automated code = 2113658098) message] The system which generated this result [...] biotin. Lab Interpretation Abnormal (test code = 93691-5) NPI:[id number] [id number]-[id number] 15:14:03 Test Item Value Reference Range Interpretation Comments NT-proBNP (test code 474 pg/mL See_Comment H [Autom ated = 6938272894) message] The system which generated this result transmitted reference range : <=450. The reference range was not used to interpret this result as normal/abnormal . ALYSSA (test code = ALYSSA) Biotin has been reported to cause a negative bias, interpret results relative to patient's use of biotin. Lab Interpretation Abnormal (test code = 11369-0) NPI:[id number] PANEL (47793)(TOTAL CHOLESTEROL, TRIGLYCERIDES, HDL) 2021-10-31 15:05:19 Test Item Value Reference Range Interpretation Comments CHOL (test code = 101 mg/dL 120-200 L 0043663592) HDL (test code = 36 mg/dL >40 L 2683035095) HDLC RATIO (test code = See_Comment [Au tomated message] 5625030373) The system [employer] generated this result transmit diamante reference range : <=5.0. The refe rence range was not u sed to interpret th is result as normal/abnormal . TRIG (test code = 143 mg/dL 30-170 3815712428) LDL CHOL (test code = 36 mg/dL See_Comment [Auto mated message] 48748-4) The system [employer] generated this result transmit diamante reference range : <=160. The refe rence range was not u sed to interpret th is result as normal/abnormal . VLDL (test code = 29 mg/dL 5-60 4970314157) Lab Interpretation (test Abnormal code = 36833-9) NPI:[id number] GLUCOSE (AUTOMATED)2021-10-31 13:44:00 Test Item Value Reference Range Interpretation Comments POCT GLU (test code = 4282387211) 150 mg/dL 70-110 H Lab Interpretation (test code = Abnormal 97733-7) NPI:[id number] with Bxvbnjfqikha5829-20-04 11:13:14 Test Item Value Reference Range Interpretation [...] RDW-SD (test code = 39.9 fL 38.5-51.6 44461-6) RDW-CV (test code = 11.8 % 12.1-15.4 L 788-0) PLT (test code = See_Comment [Automated 777-3) message] The sy stem which generated this result transmitted reference range : 150 - 328 10*3/ ?L. The reference r corey was not used to interpret this result as normal/abnormal . MPV (test code = 11.0 fL 9.8-13.0 12928-0) NRBC/100 WBC (test See_Comment [Automat ed code = 3471048450) message] The system which generated this result transmitted reference range : 0.0 - 10.0 /100 WBCs. The refer ence range was not u sed to interpret th is result as normal/abnormal . NRBC x10^3 (test code <0.01 See_Comment [Auto mated = 8908729935) message] The s ystem which generated this result transmitted reference range : 10*3/?L. The reference range was not used to interpret this result as normal/abnormal . GRAN MAT (NEUT) % 64.3 % (test code = 770-8) IMM GRAN % (test code 0.30 % = 1872839282) LYMPH % (test code = 21.7 % 736-9) MONO % (test code = 10.0 % 5905-5) EOS % (test code = 3.1 % 713-8) BASO % (test code = 0.6 % 706-2) GRAN MAT x10^3(ANC) 4.35 10*3/uL 1.99-6.95 (test code = 9987309303) IMM GRAN x10^3 (test <0.03 0.00-0.06 code = 8353610762) LYMPH x10^3 (test code 1.47 10*3/uL 1.09-3.23 = 731-0) MONO x10^3 (test code 0.68 10*3/uL 0.36-1.02 = 742-7) EOS x10^3 (test code = 0.21 10*3/uL 0.06-0.53 711-2) BASO x10^3 (test code 0.04 10*3/uL 0.01-0.09 = 704-7) Lab Interpretation Abnormal (test code = 50721-6) NPI:[id number] [id number] 11:09:53 Test Item Value Reference Interpretation Comments Range TROPONIN I (test 0.101 ng/mL See_Comment H [Automated code = 7257683332) message] The system which generated this result [...] biotin. Lab Interpretation Abnormal (test code = 12971-5) NPI:[id number] Metabolic Panel (NA, K, CL, CO2, GLUCOSE, BUN, CREATININE, CA)2021-10-31 10:59:31 Test Item Value Reference Range Interpretation Comments NA (test code = 139 mmol/L 135-145 7237382831) K (test code = 4.1 mmol/L 3.5-5.0 0402038436) CL (test code = 103 mmol/L 98-108 1638667932) CO2 TOTAL (test code = 28 mmol/L 23-31 2950763783) AGAP (test code = 2-16 4519347390) BUN (test code = 43 mg/dL 7-23 H 7772859582) GLUCOSE (test code = 165 mg/dL 70-110 H 3758241028) CREATININE (test code = 1.68 mg/dL 0.60-1.25 H 0073208405) CALCIUM (test code = 9.6 mg/dL 8.6-10.6 8169437228) eGFR (test code = mL/min/1.73m2 3131527487) ALYSSA (test code = ALYSSA) Association of [...] tests). Lab Interpretation Abnormal (test code = 11020-8) NPI:[id number] Hemoglobin (A1C)2021-10-31 09:13:40 Test Item Value Reference Range Interpretation Comments HGB A1C (test code = 6.8 % 4.0-5.7 H 4548-4) ALYSSA (test code = ALYSSA) Reference RangesNormal: <5.7%Prediabetes: 5.7 - 6.4%Diabetes: > 6.5% Lab Interpretation (test Abnormal code = 86526-5) NPI:[id number] [id number] 06:48:18 Test Item Value Reference Interpretation Comments Range TROPONIN I (test 0.082 ng/mL See_Comment H [Automated code = 5686344206) message] The system which generated this result [...] biotin. Lab Interpretation Abnormal (test code = 49070-5) NPI:[id number] [id number] 02:09:48 Test Item Value Reference Interpretation Comments Range TROPONIN I (test 0.067 ng/mL See_Comment H [Automated code = 5146077946) message] The system which generated this result [...] biotin. Lab Interpretation Abnormal (test code = 29317-6) NPI:[id number] [id number] 02:06:31 Test Item Value Reference Range Interpretation Comments NT-proBNP (test code 318 pg/mL See_Comment [Autom ated = 9075814897) message] The system which generated this result transmitted reference range : <=450. The reference range was not used to interpret this result as normal/abnormal . ALYSSA (test code = ALYSSA) Biotin has been reported to cause a negative bias, interpret results relative to patient's use of biotin. Lab Interpretation Normal (test code = 75940-1) NPI:[id number]. METABOLIC PANEL (82344)2021-10-31 01:58:28 Test Item Value Reference Range Interpretation Comments NA (test code = 137 mmol/L 135-145 4066954964) K (test code = 4.1 mmol/L 3.5-5.0 1941193958) CL (test code = 101 mmol/L 98-108 1069751150) CO2 TOTAL (test code = 26 mmol/L 23-31 5867762687) AGAP (test code = 2-16 4857956413) BUN (test code = 46 mg/dL 7-23 H 7034930796) GLUCOSE (test code = 213 mg/dL 70-110 H 1538728689) CREATININE (test code = 1.96 mg/dL 0.60-1.25 H 9194673628) TOTAL BILI (test code = 0.9 mg/dL 0.1-1.1 5770735071) CALCIUM (test code = 9.7 mg/dL 8.6-10.6 1227081285) T PROTEIN (test code = 7.0 g/dL 6.3-8.2 8528204724) ALBUMIN (test code = 4.3 g/dL 3.5-5.0 2357038448) ALK PHOS (test code = 58 U/L 34-122 0816043193) ALTv (test code = 20 U/L 5-50 1742-6) AST(SGOT) (test code = 27 U/L 13-40 3866905403) eGFR (test code = mL/min/1.73m2 1522823548) ALYSSA (test code = ALYSSA) Association of [...] tests). Lab Interpretation Abnormal (test code = 11702-7) NPI:[id number], [id number] 01:57:48 Test Item Value Reference Range Interpretation Comments LIPASE (test code = 7289660473) 330 U/L 0-220 H Lab Interpretation (test code = Abnormal 11668-0) NPI:[id number] 01:55:04 Test Item Value Reference Range Interpretation [...] seconds. Lab Interpretation Normal (test code = 30825-6) NPI:[id number] TIME / [id number] 01:53:08 Test Item Value Reference Range Interpretation Comments PROTIME PATIENT (test See_Comment [Auto mated message] code = 5964-2) The system Elastra ich generated this result transmitted ref erence range: 12.0 - 1 4.7 Seconds. The re ference range was not u sed to interpret this result as normal/abnor mal. INR (test code = 6301-6) Nor mal INR <1.1; Warfarin Therap eutic range 2.0 to 3. 0 or 2.5 to 3.5, dep ending upon the indica tions. Lab Interpretation (test Normal code = 00163-6) NPI:[id number] WITH [id number] 01:45:44 Test Item Value Reference Range Interpretation [...] RDW-SD (test code = 39.1 fL 38.5-51.6 28873-5) RDW-CV (test code = 11.6 % 12.1-15.4 L 788-0) PLT (test code = See_Comment [Automated 777-3) message] The sy stem which generated this result transmitted reference range : 150 - 328 10*3/ ?L. The reference r corey was not used to interpret this result as normal/abnormal . MPV (test code = 10.4 fL 9.8-13.0 73086-6) NRBC/100 WBC (test See_Comment [Automat ed code = 2340473860) message] The system which generated this result transmitted reference range : 0.0 - 10.0 /100 WBCs. The refer ence range was not u sed to interpret th is result as normal/abnormal . NRBC x10^3 (test code <0.01 See_Comment [Auto mated = 4825326462) message] The s ystem which generated this result transmitted reference range : 10*3/?L. The reference range was not used to interpret this result as normal/abnormal . GRAN MAT (NEUT) % 62.1 % (test code = 770-8) IMM GRAN % (test code 0.30 % = 4590992836) LYMPH % (test code = 23.4 % 736-9) MONO % (test code = 10.8 % 5905-5) EOS % (test code = 2.9 % 713-8) BASO % (test code = 0.5 % 706-2) GRAN MAT x10^3(ANC) 4.14 10*3/uL 1.99-6.95 (test code = 9556219988) IMM GRAN x10^3 (test <0.03 0.00-0.06 code = 7645343280) LYMPH x10^3 (test code 1.56 10*3/uL 1.09-3.23 = 731-0) MONO x10^3 (test code 0.72 10*3/uL 0.36-1.02 = 742-7) EOS x10^3 (test code = 0.19 10*3/uL 0.06-0.53 711-2) BASO x10^3 (test code 0.03 10*3/uL 0.01-0.09 = 704-7) Lab Interpretation Abnormal (test code = 27944-4) NPI:[id number] 21:15:48 Test Item Value Reference Range Interpretation Comments APPEARANCE (test code = Clear Clear 6678311494) COLOR (test code = Yellow Yellow 9709478937) PH (test code = 4.8-8.0 7157325982) SP GRAVITY (test code = 1.003-1.030 3970418205) GLU U QUAL (test code = 50 mg/dL Normal A 4802786326) BLOOD (test code = Negative Negative INTERFERE NCE FROM 9365178758) ASCORBIC ACID M AY CAUSE FALSE NEG ATIVE RESULT KETONES (test code = Negative Negative 9296824234) PROTEIN (test code = Negative Negative 2887-8) UROBILIN (test code = Normal Normal 7172672530) BILIRUBIN (test code = Negative Negative 4015842636) NITRITE (test code = Negative Negative 1299559176) LEUK JESS (test code = Negative Negative 9788608113) RBC/HPF (test code = See_Comment [Autom ated message] 9453743526) The system [employer] generated this result transmitted ref erence range: 0 - 3 HP F. The reference range was not used to int erpret this result as normal/abnormal . WBC/HPF (test code = See_Comment [Autom ated message] 2378373998) The system [employer] generated this result transmitted ref erence range: 0 - 5 HP F. The reference range was not used to int erpret this result as normal/abnormal . BACTERIA (test code = Negative Negative 5351071100) SQ EPITH (test code = <1 See_Comment [Auto mated message] 0227469392) The system [employer] generated this result transmitted ref erence range: <=2 HPF. The reference range was not used to int erpret this result as normal/abnormal . HYAL CAST (test code = See_Comment [Aut omated message] 5535639783) The system [employer] generated this result transmitted ref erence range: <=2 LPF. The reference range was not used to int erpret this result as normal/abnormal . Lab Interpretation (test Abnormal code = 02473-2) NPI:[id number] LUMBAR SPINE 2 [id number] 20:30:53Impression: Postoperative changes. Degenerative changes. No acute bony abnormality identified. End of Report. RL: 3901 Ordering Physician: NALLELY BHAT. Procedure: XR LUMBAR SPINE 2 VW Comparison: [...] -04/25/2021 3:31 PM CDT Ordering Physician: NALLELY BHAT.Procedure: XR LUMBAR SPINE 2 VWComparison: None.History: left sided low back pain for 1 week. denies fall or injury . Findings:Bilateral L4 laminectomy with bilateral marshal and pedic le screw fixationL3-L5 with posterior crossbar L4/5.Epidural stimulator.Severe disc space narrowing T12/L1 with moderate disc space narrowing L1/2and L2/3 with severe disc space narrowing L5/S1.Discectomy with interbody bone grafting L4/5.Minimal grade 1 retrolisthesis of 2 mm L2 on L3.No acute fracture or dislocation identified.Atherosclerotic calcifications.IMPRESSIONImpression:Postoperative changes.Degenerative changes.No acute bony abnormality identified.End of Report.RL: 3901 XR HIPS 2 VW [id number] 20:24:52Impression: Postoperative changes. Degenerative changes. No acute bony abnormality identified. If there is persistent clinicalconcern MRI is available. End of Report. RL: 3901 Ordering Physician: NALLELY BHAT. Procedure: XR HIPS 2 VW LEFT Comparison: [...] 04/25/2021 3:26 PM CDT Ordering Physician: NALLELY BHAT.Procedure: XR HIPS 2 VW LEFTComparison: None.History: left sided low back pain radiating to left thigh/hip in past a fewdays. . Findings:Partially visualized lumbar spinal fusion and right epidural stimulator.Penile prosthesis.Moderate degenerative calcific enthesopathy of the pelvis.Tiny ossific density adjacent to the acetabulum likely os acetabuli.Moderate pubic symphyseal degenerative arthropathy.No fracture, dislocation, or avascular necrosis identified .Atherosclerotic calcifications bilaterally.IMPRESSIONImpression:Postoperative changes.Degenerative changes.No acute bony abnormality identified. If there is persistent clinicalconcern MRI is available.End of Report.RL: 3901 NPI:[id number] Metabolic Panel (NA, K, CL, CO2, GLUCOSE, BUN, CREATININE, CA)2020-05-24 14:15:00 Test Item Value Reference Range Interpretation Comments NA (test code = 139 mmol/L 135-145 0707229002) K (test code = 4.1 mmol/L 3.5-5 7262219777) CL (test code = 104 mmol/L 98-108 1905134744) CO2 TOTAL (test code = 26 mmol/L 23-31 3161026899) AGAP (test code = 2-16 6732510820) BUN (test code = 22 mg/dL 7-23 2863424680) GLUCOSE (test code = 203 mg/dL 70-110 H 4380465078) CREATININE (test code = 1.40 mg/dL 0.6-1.25 H 5499327416) CALCIUM (test code = 9.1 mg/dL 8.6-10.6 3164144646) eGFR Calculation mL/min/1.73m2 (Non-) (test code = 9830106675) eGFR Calculation mL/min/1.73m2 () (test code = 2509065806) ALYSSA (test code = ALYSSA) Association of [...] tests). Lab Interpretation Abnormal (test code = 49529-7) NPI:[id number] Function Panel (ALB, T.PRO, BILI T, BU/BC, ALT, AST, ALK PHOS)2020-05-24 13:54:00 Test Item Value Reference Range Interpretation Comments TOTAL BILI (test code = 4318029857) 0.9 mg/dL 0.1-1.1 BILI UNCON (test code = 6975780698) 1.0 mg/dL 0.1-1.1 BILI CONJ (test code = 8039664006) 0.0 mg/dL 0-0.3 T PROTEIN (test code = 7000473336) 7.0 g/dL 6.3-8.2 ALBUMIN (test code = 4385670905) 4.2 g/dL 3.5-5 ALK PHOS (test code = 0146935319) 49 U/L 34-122 ALTv (test code = 1742-6) 17 U/L 5-50 AST(SGOT) (test code = 8951111295) 25 U/L 13-40 Lab Interpretation (test code = Normal 43513-8) NPI:[id number] 13:32:00 Test Item Value Reference Range Interpretation [...] seconds. Lab Interpretation Normal (test code = 94987-2) NPI:[id number] Time (PT) / [id number] 13:30:00 Test Item Value Reference Range Interpretation [...] tions. Lab Interpretation (test Normal code = 61643-9) NPI:[id number] WITH [id number] 13:27:00 Test Item Value Reference Range Interpretation Comments WBC (test code = See_Comment [Automated 8590-2) message] The sy stem which generated this result transmitted reference range : 4.20 - 10.70 10*3/?L. The reference range was not used to interpret this result as normal/abnormal . RBC (test code = See_Comment L [Automated 329-8) message] The sy stem which generated this [...] RDW-SD (test code = 42.6 fL 38.5-51.6 47689-8) RDW-CV (test code = 12.3 % 12.1-15.4 788-0) PLT (test code = See_Comment [Automated 777-3) message] The sy stem which generated this result transmitted reference range : 150 - 328 10*3/ ?L. The reference r corey was not used to interpret this result as normal/abnormal . MPV (test code = 9.9 fL 9.8-13 92000-5) NRBC/100 WBC (test See_Comment [Automat ed code = 2967238067) message] The system which generated this result transmitted reference range : 0.0 - 10.0 /100 WBCs. The refer ence range was not u sed to interpret th is result as normal/abnormal . NRBC x10^3 (test code <0.01 See_Comment [Auto mated = 3971146689) message] The s ystem which generated this result transmitted reference range : 10*3/?L. The reference range was not used to interpret this result as normal/abnormal . GRAN MAT (NEUT) % 55.1 % (test code = 770-8) IMM GRAN % (test code 0.20 % = 4404661839) LYMPH % (test code = 28.8 % 736-9) MONO % (test code = 11.3 % 5905-5) EOS % (test code = 3.5 % 713-8) BASO % (test code = 1.1 % 706-2) GRAN MAT x10^3(ANC) 3.11 10*3/uL 1.99-6.95 (test code = 6182334196) IMM GRAN x10^3 (test <0.03 0-0.06 code = 5691679774) LYMPH x10^3 (test code 1.63 10*3/uL 1.09-3.23 = 731-0) MONO x10^3 (test code 0.64 10*3/uL 0.36-1.02 = 742-7) EOS x10^3 (test code = 0.20 10*3/uL 0.06-0.53 711-2) BASO x10^3 (test code 0.06 10*3/uL 0.01-0.09 = 704-7) Lab Interpretation Abnormal (test code = 69898-9) NPI:[id number] ANKLE 3+ VW [id number] 13:25:58HISTORY: ?Pain. FINDINGS: AP, lateral, oblique views [...] No acute fracture or dislocation in left ankle.NPI:[id number] GLUCOSE (AUTOMATED)2020-03-23 22:34:00 Test Item Value Reference Range Interpretation Comments POCT GLU (test code = 3016219466) 173 mg/dL 70-110 H Lab Interpretation (test code = Abnormal 73886-8) NPI:[id number] GLUCOSE (AUTOMATED)2020-03-23 22:34:00 Test Item Value Reference Range Interpretation Comments POCT GLU (test code = 5507616229) 173 mg/dL 70-110 H Lab Interpretation (test code = Abnormal 59605-0) NPI:[id number] GLUCOSE (AUTOMATED)2020-03-23 18:12:00 Test Item Value Reference Range Interpretation Comments POCT GLU (test code = 165 mg/dL 70-110 H Notifi ed Provider 1680311305) Lab Interpretation (test Abnormal code = 20918-5) NPI:[id number] GLUCOSE (AUTOMATED)2020-03-23 18:12:00 Test Item Value Reference Range Interpretation Comments POCT GLU (test code = 165 mg/dL 70-110 H Notifi ed Provider 8739168824) Lab Interpretation (test Abnormal code = 31222-7) NPI:[id number] GLUCOSE (AUTOMATED)2020-03-23 15:04:00 Test Item Value Reference Range Interpretation Comments POCT GLU (test code = 114 mg/dL 70-110 H Notifi ed Provider [id number]) Lab Interpretation (test Abnormal code = 30519-9) NPI:[id number] GLUCOSE (AUTOMATED)2020-03-23 15:04:00 Test Item Value Reference Range Interpretation Comments POCT GLU (test code = 114 mg/dL 70-110 H Notifi ed Provider 3452283031) Lab Interpretation (test Abnormal code = 63004-2) NPI:[id number] [id number] 13:23:00 Test Item Value Reference Range Interpretation Comments FERRITIN (test code = 139.0 ng/mL 18-464 3265803157) ALYSSA (test code = ALYSSA) Biotin has been reported to cause a negative bias, interpret results relative to patient's use of biotin. Lab Interpretation (test Normal code = 76347-2) NPI:[id number] [id number] 13:23:00 Test Item Value Reference Range Interpretation Comments FERRITIN (test code = 139.0 ng/mL 18-464 9518424298) ALYSSA (test code = ALYSSA) Biotin has been reported to cause a negative bias, interpret results relative to patient's use of biotin. Lab Interpretation (test Normal code = 68403-8) NPI:[id number] [id number] 12:53:00 Test Item Value Reference Range Interpretation Comments IRON (test code = 3688165660) 87 ug/dL 50-160 TIBC (test code = 6766985065) 385 ug/dL 250-410 % FE SAT (test code = 1614832825) 23 % 20-50 Lab Interpretation (test code = Normal 28636-7) NPI:[id number] [id number] 12:53:00 Test Item Value Reference Range Interpretation Comments IRON (test code = [id number]) 87 ug/dL 50-160 TIBC (test code = [id number]) 385 ug/dL 250-410 % FE SAT (test code = 8955496661) 23 % 20-50 Lab Interpretation (test code = Normal 28359-8) NPI:[id number] 12:07:00 Test Item Value Reference Range Interpretation Comments APTT Patient (test code See_Comment HH [Au tomated message] = 3173-2) The system [employer] generated this result transmitted ref erence range: 26 - 36 Seconds. The reference range was not used to int erpret this result as normal/abnormal . Lab Interpretation (test Abnormal code = 52902-5) NPI:[id number] 12:07:00 Test Item Value Reference Range Interpretation Comments APTT Patient (test code See_Comment HH [Au tomated message] = 3173-2) The system [employer] generated this result transmitted ref erence range: 26 - 36 Seconds. The reference range was not used to int erpret this result as normal/abnormal . Lab Interpretation (test Abnormal code = 96360-5) NPI:[id number] 11:57:00 Test Item Value Reference Range Interpretation Comments TROPONIN I (test 0.046 ng/mL See_Comment H [Automated code = 2062667577) message] The system which generated this result [...] ? Lab Interpretation Abnormal (test code = 87323-8) NPI:[id number] [id number] 11:57:00 Test Item Value Reference Range Interpretation Comments TROPONIN I (test 0.046 ng/mL See_Comment H [Automated code = 3492340237) message] The system which generated this result [...] ? Lab Interpretation Abnormal (test code = 81329-5) NPI:[id number] METABOLIC PANEL (NA, K, CL, CO2, GLUCOSE, BUN, CREATININE, CA)2020-03-23 11:52:00 Test Item Value Reference Range Interpretation Comments NA (test code = 137 mmol/L 135-145 3658001239) K (test code = 4.1 mmol/L 3.5-5 6195860270) CL (test code = 102 mmol/L 98-108 6930716248) CO2 TOTAL (test code = 26 mmol/L 23-31 0779879844) AGAP (test code = 2-16 4105235271) BUN (test code = 18 mg/dL 7-23 6890492584) GLUCOSE (test code = 119 mg/dL 70-110 H 5667563661) CREATININE (test code = 1.14 mg/dL 0.6-1.25 7747925037) CALCIUM (test code = 9.1 mg/dL 8.6-10.6 2538453157) eGFR Calculation mL/min/1.73m2 (Non-) (test code = 6097272402) eGFR Calculation mL/min/1.73m2 () (test code = 2543272056) ALYSSA (test code = ALYSSA) Association of [...] tests). Lab Interpretation Abnormal (test code = 13879-8) NPI:[id number] 11:52:00 Test Item Value Reference Range Interpretation Comments MAGNESIUM (test code = 4591557097) 2.2 mg/dL 1.7-2.4 Lab Interpretation (test code = Normal 18764-2) NPI:[id number] METABOLIC PANEL (NA, K, CL, CO2, GLUCOSE, BUN, CREATININE, CA)2020-03-23 11:52:00 Test Item Value Reference Range Interpretation Comments NA (test code = 137 mmol/L 135-145 8731179900) K (test code = 4.1 mmol/L 3.5-5 4347200503) CL (test code = 102 mmol/L 98-108 1432494283) CO2 TOTAL (test code = 26 mmol/L 23-31 1853085021) AGAP (test code = 2-16 7681983602) BUN (test code = 18 mg/dL 7-23 4940956924) GLUCOSE (test code = 119 mg/dL 70-110 H 4422372040) CREATININE (test code = 1.14 mg/dL 0.6-1.25 8880074157) CALCIUM (test code = 9.1 mg/dL 8.6-10.6 3719762239) eGFR Calculation mL/min/1.73m2 (Non-) (test code = 2456889729) eGFR Calculation mL/min/1.73m2 () (test code = 2769052598) ALYSSA (test code = ALYSSA) Association of [...] tests). Lab Interpretation Abnormal (test code = 83352-8) NPI:[id number] 11:52:00 Test Item Value Reference Range Interpretation Comments MAGNESIUM (test code = 5450941874) 2.2 mg/dL 1.7-2.4 Lab Interpretation (test code = Normal 01721-9) NPI:[id number] Time (PT) / [id number] 11:36:00 Test Item Value Reference Range Interpretation Comments PROTIME PATIENT (test See_Comment [Auto mated message] code = 5964-2) The system [employer] generated this result transmitted ref erence range: 10.1 - 1 2.6 Seconds. The re ference range was not u sed to interpret this result as normal/abnor mal. INR (test code = 6301-6) Nor mal INR <1.1; Warfarin Therap eutic range 2.0 to 3. 0 or 2.5 to 3.5, dep ending upon the indica tions. Lab Interpretation (test Normal code = 13090-4) NPI:[id number] Time (PT) / [id number] 11:36:00 Test Item Value Reference Range Interpretation Comments PROTIME PATIENT (test See_Comment [Auto mated message] code = 5964-2) The system [employer] generated this result transmitted ref erence range: 10.1 - 1 2.6 Seconds. The re ference range was not u sed to interpret this result as normal/abnor mal. INR (test code = 6301-6) Nor mal INR <1.1; Warfarin Therap eutic range 2.0 to 3. 0 or 2.5 to 3.5, dep ending upon the indica tions. Lab Interpretation (test Normal code = 20305-7) NPI:[id number] [id number] 06:38:00 Test Item Value Reference Range Interpretation Comments TROPONIN I (test 0.045 ng/mL See_Comment H [Automated code = 6047699459) message] The system which generated this result [...] ? Lab Interpretation Abnormal (test code = 57399-6) NPI:[id number] 06:38:00 Test Item Value Reference Range Interpretation Comments TROPONIN I (test 0.045 ng/mL See_Comment H [Automated code = 4721237982) message] The system which generated this result [...] ? Lab Interpretation Abnormal (test code = 85998-9) NPI:[id number] METABOLIC PANEL (NA, K, CL, CO2, GLUCOSE, BUN, CREATININE, CA)2020-03-23 06:29:00 Test Item Value Reference Range Interpretation Comments NA (test code = 137 mmol/L 135-145 3515685564) K (test code = 3.6 mmol/L 3.5-5 9770072662) CL (test code = 101 mmol/L 98-108 0860975052) CO2 TOTAL (test code = 27 mmol/L 23-31 9688336575) AGAP (test code = 2-16 5803518373) BUN (test code = 19 mg/dL 7-23 2679188383) GLUCOSE (test code = 153 mg/dL 70-110 H 1950443679) CREATININE (test code = 1.22 mg/dL 0.6-1.25 1344845330) CALCIUM (test code = 8.9 mg/dL 8.6-10.6 6936922603) eGFR Calculation mL/min/1.73m2 (Non-) (test code = 1898464696) eGFR Calculation mL/min/1.73m2 () (test code = 7361180973) ALYSSA (test code = ALYSSA) Association of [...] tests). Lab Interpretation Abnormal (test code = 27168-3) NPI:[id number] 06:29:00 Test Item Value Reference Range Interpretation Comments MAGNESIUM (test code = 4983160062) 1.7 mg/dL 1.7-2.4 Lab Interpretation (test code = Normal 01549-8) NPI:[id number] PANEL (47439)(TOTAL CHOLESTEROL, TRIGLYCERIDES, HDL) 2020-03-23 06:29:00 Test Item Value Reference Range Interpretation Comments CHOL (test code = 106 mg/dL 120-200 L 3518283343) HDL (test code = 46 mg/dL >40 6515165244) HDLC RATIO (test code = See_Comment [Au tomated message] 4526097450) The system [employer] generated this result transmit diamante reference range : <=5.0. The refe rence range was not u sed to interpret th is result as normal/abnormal . TRIG (test code = 74 mg/dL 30-170 3920754195) LDL CHOL (test code = 45 mg/dL See_Comment [Auto mated message] 02683-4) The system [employer] generated this result transmit diamante reference range : <=160. The refe rence range was not u sed to interpret th is result as normal/abnormal . VLDL (test code = 15 mg/dL 5-60 7854727787) Lab Interpretation (test Abnormal code = 29117-3) NPI:[id number] METABOLIC PANEL (NA, K, CL, CO2, GLUCOSE, BUN, CREATININE, CA)2020-03-23 06:29:00 Test Item Value Reference Range Interpretation Comments NA (test code = 137 mmol/L 135-145 6193440816) K (test code = 3.6 mmol/L 3.5-5 4448454466) CL (test code = 101 mmol/L 98-108 0853312345) CO2 TOTAL (test code = 27 mmol/L 23-31 8161243477) AGAP (test code = 2-16 2665187149) BUN (test code = 19 mg/dL 7-23 3764870921) GLUCOSE (test code = 153 mg/dL 70-110 H 8801690783) CREATININE (test code = 1.22 mg/dL 0.6-1.25 5945254264) CALCIUM (test code = 8.9 mg/dL 8.6-10.6 5008959485) eGFR Calculation mL/min/1.73m2 (Non-) (test code = 1329947864) eGFR Calculation mL/min/1.73m2 () (test code = 4623467183) ALYSSA (test code = ALYSSA) Association of [...] tests). Lab Interpretation Abnormal (test code = 81185-0) NPI:[id number] 06:29:00 Test Item Value Reference Range Interpretation Comments MAGNESIUM (test code = 1874699581) 1.7 mg/dL 1.7-2.4 Lab Interpretation (test code = Normal 13772-3) NPI:[id number] PANEL (45148)(TOTAL CHOLESTEROL, TRIGLYCERIDES, HDL) 2020-03-23 06:29:00 Test Item Value Reference Range Interpretation Comments CHOL (test code = 106 mg/dL 120-200 L 5418786547) HDL (test code = 46 mg/dL >40 8024173054) HDLC RATIO (test code = See_Comment [Au tomated message] 4567619699) The system [employer] generated this result transmit diamante reference range : <=5.0. The refe rence range was not u sed to interpret th is result as normal/abnormal . TRIG (test code = 74 mg/dL 30-170 6233461356) LDL CHOL (test code = 45 mg/dL See_Comment [Auto mated message] 62984-9) The system [employer] generated this result transmit diamante reference range : <=160. The refe rence range was not u sed to interpret th is result as normal/abnormal . VLDL (test code = 15 mg/dL 5-60 9595254017) Lab Interpretation (test Abnormal code = 39809-5) NPI:[id number] 03:18:00 Test Item Value Reference Range Interpretation Comments APTT Patient (test code = See_Comment [ Automated message] 3173-2) The system [employer] generated this result transmitted ref erence range: 26 - 36 Seconds. The re ference range was not u sed to interpret this result as normal/abnor mal. Lab Interpretation (test Normal code = 91590-3) NPI:[id number] 03:18:00 Test Item Value Reference Range Interpretation Comments APTT Patient (test code = See_Comment [ Automated message] 3173-2) The system [employer] generated this result transmitted ref erence range: 26 - 36 Seconds. The re ference range was not u sed to interpret this result as normal/abnor mal. Lab Interpretation (test Normal code = 51204-0) NPI:[id number] TIME / [id number] 03:07:00 Test Item Value Reference Range Interpretation Comments PROTIME PATIENT (test See_Comment [Auto mated message] code = 5964-2) The system [employer] generated this result transmitted ref erence range: 10.1 - 1 2.6 Seconds. The re ference range was not u sed to interpret this result as normal/abnor mal. INR (test code = 6301-6) Nor mal INR <1.1; Warfarin Therap eutic range 2.0 to 3. 0 or 2.5 to 3.5, dep ending upon the indica tions. Lab Interpretation (test Normal code = 59572-5) NPI:[id number] TIME / [id number] 03:07:00 Test Item Value Reference Range Interpretation Comments PROTIME PATIENT (test See_Comment [Auto mated message] code = 5964-2) The system [employer] generated this result transmitted ref erence range: 10.1 - 1 2.6 Seconds. The re ference range was not u sed to interpret this result as normal/abnor mal. INR (test code = 6301-6) Nor mal INR <1.1; Warfarin Therap eutic range 2.0 to 3. 0 or 2.5 to 3.5, dep ending upon the indica tions. Lab Interpretation (test Normal code = 71364-1) NPI:[id number] CHEST 2 [id number] 02:23:32 No acute cardiopulmonary process. Preliminary Report [...] reviewed this study and agree with the abovereport.NPI:[id number] CHEST 2 [id number] 02:23:32 No acute cardiopulmonary process. Preliminary Report [...] reviewed this study and agree with the abovereport. CORONAVIRUS COVID-19 [id number] 01:23:00 Test Item Value Reference Range Interpretation Comments SARS-CoV-2 (test code = Not Detected Not Detected 76478-1) ALYSSA (test code = ALYSSA) ID NOW COVID-19 Assay is an isothermal nucleic acid amplification test intended for the qualitative detection of nucleic acid from SARS-CoV-2 viral RNA in nasopharyngeal ([employer]) specimens. It is used under Emergency [...] indicated. Lab Interpretation Normal (test code = 38355-3) NPI:[id number] COVID-19 [id number] 01:23:00 Test Item Value Reference Range Interpretation Comments SARS-CoV-2 (test code = Not Detected Not Detected 42953-7) ALYSSA (test code = ALYSSA) ID NOW COVID-19 Assay is an isothermal nucleic acid amplification test intended for the qualitative detection of nucleic acid from SARS-CoV-2 viral RNA in nasopharyngeal ([employer]) specimens. It is used under Emergency [...] indicated. Lab Interpretation Normal (test code = 49533-2) NPI:[id number] 00:12:00 Test Item Value Reference Range Interpretation Comments NT-proBNP (test code 585 pg/mL See_Comment H [Autom ated = 3188480155) message] The system which generated this result transmitted reference range : <=450. The reference range was not used to interpret this result as normal/abnormal . ALYSSA (test code = ALYSSA) Biotin has been reported to cause a negative bias, interpret results relative to patient's use of biotin. Lab Interpretation Abnormal (test code = 38570-6) NPI:[id number] 00:12:00 Test Item Value Reference Range Interpretation Comments TROPONIN I (test 0.030 ng/mL See_Comment [Automated code = 9220795168) message] The system which generated this result [...] ? Lab Interpretation Normal (test code = 35837-5) NPI:[id number] 00:12:00 Test Item Value Reference Range Interpretation Comments NT-proBNP (test code 585 pg/mL See_Comment H [Autom ated = 7448395706) message] The system which generated this result transmitted reference range : <=450. The reference range was not used to interpret this result as normal/abnormal . ALYSSA (test code = ALYSSA) Biotin has been reported to cause a negative bias, interpret results relative to patient's use of biotin. Lab Interpretation Abnormal (test code = 95383-4) NPI:[id number] [id number] 00:12:00 Test Item Value Reference Range Interpretation Comments TROPONIN I (test 0.030 ng/mL See_Comment [Automated code = 2473823109) message] The system which generated this result [...] ? Lab Interpretation Normal (test code = 32142-6) NPI:[id number]. METABOLIC PANEL (81221)2020-03-23 00:03:00 Test Item Value Reference Range Interpretation Comments NA (test code = 138 mmol/L 135-145 3341606371) K (test code = 4.1 mmol/L 3.5-5 8234414371) CL (test code = 103 mmol/L 98-108 8187964907) CO2 TOTAL (test code = 26 mmol/L 23-31 0765372047) AGAP (test code = 2-16 1971853280) BUN (test code = 18 mg/dL 7-23 4352681644) GLUCOSE (test code = 157 mg/dL 70-110 H 5781850494) CREATININE (test code = 1.19 mg/dL 0.6-1.25 3854964740) TOTAL BILI (test code = 1.1 mg/dL 0.1-1.7 8016129148) CALCIUM (test code = 9.2 mg/dL 8.6-10.6 5332500715) T PROTEIN (test code = 6.8 g/dL 6.3-8.2 3648997327) ALBUMIN (test code = 4.0 g/dL 3.5-5 6205855351) ALK PHOS (test code = 51 U/L 34-122 7285131830) ALTv (test code = 16 U/L 5-50 1742-6) AST(SGOT) (test code = 23 U/L 13-40 9973443620) eGFR Calculation mL/min/1.73m2 (Non-) (test code = 7606036929) eGFR Calculation mL/min/1.73m2 () (test code = 3459958744) ALYSSA (test code = ALYSSA) Association of [...] tests). Lab Interpretation Abnormal (test code = 00815-4) NPI:[id number]. METABOLIC PANEL (51411)2020-03-23 00:03:00 Test Item Value Reference Range Interpretation Comments NA (test code = 138 mmol/L 135-145 5821894446) K (test code = 4.1 mmol/L 3.5-5 5477117327) CL (test code = 103 mmol/L 98-108 9328771219) CO2 TOTAL (test code = 26 mmol/L 23-31 5682548965) AGAP (test code = 2-16 4367879889) BUN (test code = 18 mg/dL 7-23 7844821357) GLUCOSE (test code = 157 mg/dL 70-110 H 1268000374) CREATININE (test code = 1.19 mg/dL 0.6-1.25 9657787127) TOTAL BILI (test code = 1.1 mg/dL 0.1-1.8 1359521815) CALCIUM (test code = 9.2 mg/dL 8.6-10.6 3624044525) T PROTEIN (test code = 6.8 g/dL 6.3-8.2 7120372533) ALBUMIN (test code = 4.0 g/dL 3.5-5 6178642878) ALK PHOS (test code = 51 U/L 34-122 7151529195) ALTv (test code = 16 U/L 5-50 1742-6) AST(SGOT) (test code = 23 U/L 13-40 6743676598) eGFR Calculation mL/min/1.73m2 (Non-) (test code = 0274905696) eGFR Calculation mL/min/1.73m2 () (test code = 5059853112) ALYSSA (test code = ALYSSA) Association of [...] tests). Lab Interpretation Abnormal (test code = 84478-4) NPI:[id number] WITH [id number] 23:57:00 Test Item Value Reference Range Interpretation [...] RDW-SD (test code = 49.6 fL 38.5-51.6 37849-2) RDW-CV (test code = 14.6 % 12.1-15.4 788-0) PLT (test code = See_Comment L [Automated 777-3) message] The sy stem which generated this result transmitted reference range : 150 - 328 10*3/ ?L. The reference r corey was not used to interpret this result as normal/abnormal . MPV (test code = 9.9 fL 9.8-13 68747-9) NRBC/100 WBC (test See_Comment [Automat ed code = 8813532838) message] The system which generated this result transmitted reference range : 0.0 - 10.0 /100 WBCs. The refer ence range was not u sed to interpret th is result as normal/abnormal . NRBC x10^3 (test code <0.01 See_Comment [Auto mated = 6589093846) message] The s ystem which generated this result transmitted reference range : 10*3/?L. The reference range was not used to interpret this result as normal/abnormal . GRAN MAT (NEUT) % 55.3 % (test code = 770-8) IMM GRAN % (test code 0.20 % = 2127415269) LYMPH % (test code = 28.3 % 736-9) MONO % (test code = 12.6 % 5905-5) EOS % (test code = 3.1 % 713-8) BASO % (test code = 0.5 % 706-2) GRAN MAT x10^3(ANC) 3.20 10*3/uL 1.99-6.95 (test code = 6039813001) IMM GRAN x10^3 (test <0.03 0-0.06 code = 5794044612) LYMPH x10^3 (test code 1.64 10*3/uL 1.09-3.23 = 731-0) MONO x10^3 (test code 0.73 10*3/uL 0.36-1.02 = 742-7) EOS x10^3 (test code = 0.18 10*3/uL 0.06-0.53 711-2) BASO x10^3 (test code 0.03 10*3/uL 0.01-0.09 = 704-7) Lab Interpretation Abnormal (test code = 61495-1) NPI:[id number] WITH [id number] 23:57:00 Test Item Value Reference Range Interpretation [...] RDW-SD (test code = 49.6 fL 38.5-51.6 61112-6) RDW-CV (test code = 14.6 % 12.1-15.4 788-0) PLT (test code = See_Comment L [Automated 777-3) message] The sy stem which generated this result transmitted reference range : 150 - 328 10*3/ ?L. The reference r corey was not used to interpret this result as normal/abnormal . MPV (test code = 9.9 fL 9.8-13 60907-6) NRBC/100 WBC (test See_Comment [Automat ed code = 0447657225) message] The system which generated this result transmitted reference range : 0.0 - 10.0 /100 WBCs. The refer ence range was not u sed to interpret th is result as normal/abnormal . NRBC x10^3 (test code <0.01 See_Comment [Auto mated = 9488117132) message] The s ystem which generated this result transmitted reference range : 10*3/?L. The reference range was not used to interpret this result as normal/abnormal . GRAN MAT (NEUT) % 55.3 % (test code = 770-8) IMM GRAN % (test code 0.20 % = 6865398395) LYMPH % (test code = 28.3 % 736-9) MONO % (test code = 12.6 % 5905-5) EOS % (test code = 3.1 % 713-8) BASO % (test code = 0.5 % 706-2) GRAN MAT x10^3(ANC) 3.20 10*3/uL 1.99-6.95 (test code = 0198945986) IMM GRAN x10^3 (test <0.03 0-0.06 code = 0368708071) LYMPH x10^3 (test code 1.64 10*3/uL 1.09-3.23 = 731-0) MONO x10^3 (test code 0.73 10*3/uL 0.36-1.02 = 742-7) EOS x10^3 (test code = 0.18 10*3/uL 0.06-0.53 711-2) BASO x10^3 (test code 0.03 10*3/uL 0.01-0.09 = 704-7) Lab Interpretation Abnormal (test code = 75804-9) NPI:[id number] COVID-19 [id number] 21:48:00 Test Item Value Reference Range Interpretation Comments SARS-CoV-2 (test code = Not Detected Not Detected 29574-1) ALYSSA (test code = ALYSSA) ID NOW COVID-19 Assay is an isothermal nucleic acid amplification test intended for the qualitative detection of nucleic acid from SARS-CoV-2 viral RNA in nasopharyngeal ([employer]) specimens. It is used under Emergency [...] indicated. Lab Interpretation Normal (test code = 72989-6) NPI:[id number] [id number] 21:44:00 Test Item Value Reference Range Interpretation Comments TROPONIN I (test 0.027 ng/mL See_Comment [Automated code = 9910065989) message] The system which generated this result [...] ? Lab Interpretation Normal (test code = 28666-7) NPI:[id number] Time (PT) / [id number] 21:41:00 Test Item Value Reference Range Interpretation Comments PROTIME PATIENT (test See_Comment [Auto mated message] code = 5964-2) The system [employer] generated this result transmitted ref erence range: 12.0 - 1 4.7 Seconds. The re ference range was not u sed to interpret this result as normal/abnor mal. INR (test code = 6301-6) Nor mal INR <1.1; Warfarin Therap eutic range 2.0 to 3. 0 or 2.5 to 3.5, dep ending upon the indica tions. Lab Interpretation (test Normal code = 98370-1) NPI:[id number]-MGLATQMU [id number] 21:39:00 Test Item Value Reference Range Interpretation Comments NT-proBNP (test code 663 pg/mL See_Comment H [Autom ated = 8784850169) message] The system which generated this result transmitted reference range : <=450. The reference range was not used to interpret this result as normal/abnormal . ALYSSA (test code = ALYSSA) Biotin has been reported to cause a negative bias, interpret results relative to patient's use of biotin. Lab Interpretation Abnormal (test code = 48142-4) NPI:[id number]. METABOLIC PANEL (96145)2020-03-21 21:37:00 Test Item Value Reference Range Interpretation Comments NA (test code = 139 mmol/L 135-145 6830883164) K (test code = 4.1 mmol/L 3.5-5 6214168688) CL (test code = 102 mmol/L 98-108 8825721278) CO2 TOTAL (test code = 29 mmol/L 23-31 7898391534) AGAP (test code = 2-16 7106445947) BUN (test code = 18 mg/dL 7-23 6117033339) GLUCOSE (test code = 277 mg/dL 70-110 H 3225279493) CREATININE (test code = 1.23 mg/dL 0.6-1.25 7462073076) TOTAL BILI (test code = 1.3 mg/dL 0.1-1.1 H 7665300005) CALCIUM (test code = 9.8 mg/dL 8.6-10.6 7144289896) T PROTEIN (test code = 7.0 g/dL 6.3-8.2 8753725676) ALBUMIN (test code = 4.2 g/dL 3.5-5 4475710646) ALK PHOS (test code = 50 U/L 34-122 3881517225) ALTv (test code = 15 U/L 5-50 1742-6) AST(SGOT) (test code = 22 U/L 13-40 6000693812) eGFR Calculation mL/min/1.73m2 (Non-) (test code = 5213241795) eGFR Calculation mL/min/1.73m2 () (test code = 3728517686) ALYSSA (test code = ALYSSA) Association of [...] tests). Lab Interpretation Abnormal (test code = 69569-7) NPI:[id number] [id number] 21:37:00 Test Item Value Reference Range Interpretation Comments LIPASE (test code = 4240320017) 161 U/L 0-220 Lab Interpretation (test code = Normal 91332-0) NPI:[id number] 1 [id number] 20:46:31HISTORY: Chest pain. TECHNIQUE: Portable AP view of the chest is obtained. Comparison made with03/04/2020 study. FINDINGS: No acute pneumonia. No pneumothorax or pleural effusion orpulmonary congestion detected. Mild cardiomegaly and intrathecal electrodesin lower thoracic spinal canal noted. Mild thoracolumbar scoliosis noted. CONCLUSIONS: Mild cardiomegaly.[facility], Radiant Results Inft User - 03/21/2020 3:47 PM CDTHISTORY: Chest pain.TECHNIQUE: Portable AP view of the chest is obtained. Comparison made with03/04/2020 study.FINDINGS: No acute pneumonia. No pneumothorax or pleural effusion orpulmonary congestion detected. Mild cardiomegaly and intrathecal electrodesin lower thoracic spinal canal noted. Mild thoracolumbar scoliosis noted.CONCLUSIONS: Mild cardiomegaly. Lactic Acid Whole [id number] 20:43:00 Test Item Value Reference Range Interpretation Comments LACTIC ACID (test code = 1.91 mmol/L 0.3-2.6 5932587780) NPI:[id number] GLUCOSE (AUTOMATED)2020-03-07 20:58:00 Test Item Value Reference Range Interpretation Comments POCT GLU (test code = 3672342669) 216 mg/dL 70-110 H Lab Interpretation (test code = Abnormal 85436-4) NPI:[id number] GLUCOSE (AUTOMATED)2020-03-07 16:00:00 Test Item Value Reference Range Interpretation Comments POCT GLU (test code = 2564037833) 168 mg/dL 70-110 H Lab Interpretation (test code = Abnormal 70473-3) NPI:[id number] GLUCOSE (AUTOMATED)2020-03-07 13:07:00 Test Item Value Reference Range Interpretation Comments POCT GLU (test code = 0461420967) 148 mg/dL 70-110 H Lab Interpretation (test code = Abnormal 92222-9) NPI:[id number] [id number] 11:27:00 Test Item Value Reference Range Interpretation Comments TROPONIN I (test 0.051 ng/mL See_Comment H [Automated code = 7192860850) message] The system which generated this result [...] ? Lab Interpretation Abnormal (test code = 31254-8) NPI:[id number]-[id number] [id number]-[id number] 11:24:00 Test Item Value Reference Range Interpretation Comments NT-proBNP (test code 336 pg/mL See_Comment [Autom ated = 4065767716) message] The system which generated this result transmitted reference range : <=450. The reference range was not used to interpret this result as normal/abnormal . ALYSSA (test code = ALYSSA) Biotin has been reported to cause a negative bias, interpret results relative to patient's use of biotin. Lab Interpretation Normal (test code = 18000-0) NPI:[id number] Metabolic Panel (NA, K, CL, CO2, GLUCOSE, BUN, CREATININE, [place])2020-03-07 11:14:00 Test Item Value Reference Range Interpretation Comments NA (test code = 138 mmol/L 135-145 5147336421) K (test code = 3.8 mmol/L 3.5-5 2107601955) CL (test code = 97 mmol/L 98-108 L 5097276091) CO2 TOTAL (test code = 30 mmol/L 23-31 2298251553) AGAP (test code = 2-16 2850882650) BUN (test code = 36 mg/dL 7-23 H 8866447764) GLUCOSE (test code = 140 mg/dL 70-110 H 2402171508) CREATININE (test code = 1.50 mg/dL 0.6-1.25 H 4140288419) CALCIUM (test code = 10.0 mg/dL 8.6-10.6 2826881392) eGFR Calculation mL/min/1.73m2 (Non-) (test code = 4533493150) eGFR Calculation mL/min/1.73m2 () (test code = 5276707280) ALYSSA (test code = ALYSSA) Association of [...] tests). Lab Interpretation Abnormal (test code = 08995-6) NPI:[id number] 11:14:00 Test Item Value Reference Range Interpretation Comments URIC ACID (test code = 3864896867) 5.4 mg/dL 3.6-8 Lab Interpretation (test code = Normal 16883-3) NPI:[id number] WITH [id number] 10:53:00 Test Item Value Reference Range Interpretation [...] RDW-SD (test code = 45.1 fL 38.5-51.6 10151-7) RDW-CV (test code = 14.2 % 12.1-15.4 788-0) PLT (test code = See_Comment [Automated 777-3) message] The sy stem which generated this result transmitted reference range : 150 - 328 10*3/ ?L. The reference r corey was not used to interpret this result as normal/abnormal . MPV (test code = 9.8 fL 9.8-13 40693-0) NRBC/100 WBC (test See_Comment [Automat ed code = 1099738280) message] The system which generated this result transmitted reference range : 0.0 - 10.0 /100 WBCs. The refer ence range was not u sed to interpret th is result as normal/abnormal . NRBC x10^3 (test code <0.01 See_Comment [Auto mated = 3006779931) message] The s ystem which generated this result transmitted reference range : 10*3/?L. The reference range was not used to interpret this result as normal/abnormal . GRAN MAT (NEUT) % 51.0 % (test code = 770-8) IMM GRAN % (test code 0.50 % = 1836820444) LYMPH % (test code = 32.0 % 736-9) MONO % (test code = 11.3 % 5905-5) EOS % (test code = 4.3 % 713-8) BASO % (test code = 0.9 % 706-2) GRAN MAT x10^3(ANC) 2.85 10*3/uL 1.99-6.95 (test code = 5605545937) IMM GRAN x10^3 (test 0.03 10*3/uL 0-0.06 code = 2411307629) LYMPH x10^3 (test code 1.79 10*3/uL 1.09-3.23 = 731-0) MONO x10^3 (test code 0.63 10*3/uL 0.36-1.02 = 742-7) EOS x10^3 (test code = 0.24 10*3/uL 0.06-0.53 711-2) BASO x10^3 (test code 0.05 10*3/uL 0.01-0.09 = 704-7) Lab Interpretation Abnormal (test code = 02587-2) NPI:[id number] GLUCOSE (AUTOMATED)2020-03-06 22:46:00 Test Item Value Reference Range Interpretation Comments POCT GLU (test code = 8030397456) 209 mg/dL 70-110 H Lab Interpretation (test code = Abnormal 13710-7) NPI:[id number] GLUCOSE (AUTOMATED)2020-03-06 16:23:00 Test Item Value Reference Range Interpretation Comments POCT GLU (test code = 6462591532) 254 mg/dL 70-110 H Lab Interpretation (test code = Abnormal 88931-8) NPI:[id number] GLUCOSE (AUTOMATED)2020-03-06 12:51:00 Test Item Value Reference Range Interpretation Comments POCT GLU (test code = 4171076941) 126 mg/dL 70-110 H Lab Interpretation (test code = Abnormal 46716-2) NPI:[id number] [id number] 10:16:00 Test Item Value Reference Range Interpretation Comments TROPONIN I (test 0.056 ng/mL See_Comment H [Automated code = 5162059793) message] The system which generated this result [...] ? Lab Interpretation Abnormal (test code = 03213-7) NPI:[id number] Metabolic Panel (NA, K, CL, CO2, GLUCOSE, BUN, CREATININE, [place])2020-03-06 10:13:00 Test Item Value Reference Range Interpretation Comments NA (test code = 136 mmol/L 135-145 5534497018) K (test code = 4.1 mmol/L 3.5-5 6384230739) CL (test code = 95 mmol/L 98-108 L 4179477390) CO2 TOTAL (test code = 30 mmol/L 23-31 9853025302) AGAP (test code = 2-16 9217310625) BUN (test code = 35 mg/dL 7-23 H 2444679428) GLUCOSE (test code = 174 mg/dL 70-110 H 0842037967) CREATININE (test code = 1.67 mg/dL 0.6-1.25 H 0776106273) CALCIUM (test code = 9.7 mg/dL 8.6-10.6 3199743232) eGFR Calculation mL/min/1.73m2 (Non-) (test code = 0696294412) eGFR Calculation mL/min/1.73m2 () (test code = 2940934954) ALYSSA (test code = ALYSSA) Association of [...] tests). Lab Interpretation Abnormal (test code = 16600-6) NPI:[id number] WITH [id number] 09:16:00 Test Item Value Reference Range Interpretation [...] RDW-SD (test code = 45.6 fL 38.5-51.6 92423-5) RDW-CV (test code = 14.3 % 12.1-15.4 788-0) PLT (test code = See_Comment [Automated 777-3) message] The sy stem which generated this result transmitted reference range : 150 - 328 10*3/ ?L. The reference r corey was not used to interpret this result as normal/abnormal . MPV (test code = 9.8 fL 9.8-13 88739-7) NRBC/100 WBC (test See_Comment [Automat ed code = 0183220613) message] The system which generated this result transmitted reference range : 0.0 - 10.0 /100 WBCs. The refer ence range was not u sed to interpret th is result as normal/abnormal . NRBC x10^3 (test code <0.01 See_Comment [Auto mated = 5240453343) message] The s ystem which generated this result transmitted reference range : 10*3/?L. The reference range was not used to interpret this result as normal/abnormal . GRAN MAT (NEUT) % 56.1 % (test code = 770-8) IMM GRAN % (test code 0.10 % = 5890854755) LYMPH % (test code = 29.7 % 736-9) MONO % (test code = 9.6 % 5905-5) EOS % (test code = 3.8 % 713-8) BASO % (test code = 0.7 % 706-2) GRAN MAT x10^3(ANC) 3.79 10*3/uL 1.99-6.95 (test code = 5931573785) IMM GRAN x10^3 (test <0.03 0-0.06 code = 1656551019) LYMPH x10^3 (test code 2.01 10*3/uL 1.09-3.23 = 731-0) MONO x10^3 (test code 0.65 10*3/uL 0.36-1.02 = 742-7) EOS x10^3 (test code = 0.26 10*3/uL 0.06-0.53 711-2) BASO x10^3 (test code 0.05 10*3/uL 0.01-0.09 = 704-7) Lab Interpretation Abnormal (test code = 36878-5) NPI:[id number] GLUCOSE (AUTOMATED)2020-03-06 01:25:00 Test Item Value Reference Range Interpretation Comments POCT GLU (test code = 3279008878) 208 mg/dL 70-110 H Lab Interpretation (test code = Abnormal 12795-9) NPI:[id number] 00:08:00 Test Item Value Reference Range Interpretation Comments TROPONIN I (test 0.047 ng/mL See_Comment H [Automated code = 1752920422) message] The system which generated this result [...] ? Lab Interpretation Abnormal (test code = 91823-8) NPI:[id number] GLUCOSE (AUTOMATED)2020-03-05 21:19:00 Test Item Value Reference Range Interpretation Comments POCT GLU (test code = 6762510060) 234 mg/dL 70-110 H Lab Interpretation (test code = Abnormal 44645-6) NPI:[id number] GLUCOSE (AUTOMATED)2020-03-05 16:55:00 Test Item Value Reference Range Interpretation Comments POCT GLU (test code = 1922496704) 258 mg/dL 70-110 H Lab Interpretation (test code = Abnormal 02300-4) NPI:[id number] GLUCOSE (AUTOMATED)2020-03-05 12:59:00 Test Item Value Reference Range Interpretation Comments POCT GLU (test code = 6267087162) 194 mg/dL 70-110 H Lab Interpretation (test code = Abnormal 10451-7) NPI:[id number] 10:54:00 Test Item Value Reference Range Interpretation Comments TROPONIN I (test 0.071 ng/mL See_Comment H [Automated code = 0886302458) message] The system which generated this result [...] ? Lab Interpretation Abnormal (test code = 55561-6) NPI:[id number] Metabolic Panel (NA, K, CL, CO2, GLUCOSE, BUN, CREATININE, [place])2020-03-05 10:43:00 Test Item Value Reference Range Interpretation Comments NA (test code = 139 mmol/L 135-145 2981357110) K (test code = 4.1 mmol/L 3.5-5 1183236920) CL (test code = 101 mmol/L 98-108 2772936673) CO2 TOTAL (test code = 27 mmol/L 23-31 3949779856) AGAP (test code = 2-16 7613605601) BUN (test code = 25 mg/dL 7-23 H 7722356505) GLUCOSE (test code = 243 mg/dL 70-110 H 4201636118) CREATININE (test code = 1.22 mg/dL 0.6-1.25 8307575496) CALCIUM (test code = 9.8 mg/dL 8.6-10.6 3708057666) eGFR Calculation mL/min/1.73m2 (Non-) (test code = 4037684358) eGFR Calculation mL/min/1.73m2 () (test code = 1566042813) ALYSSA (test code = ALYSSA) Association of [...] tests). Lab Interpretation Abnormal (test code = 45823-0) NPI:[id number] WITH [id number] 10:23:00 Test Item Value Reference Range Interpretation Comments WBC (test code = See_Comment [Automated message] 6690-2) The system [employer] generated this result transmitted ref erence range: 4.20 - 1 0.70 10*3/?L. The re ference range was not u sed to interpret this result as normal/abnor mal. RBC (test code = See_Comment [Automated message] 829-8) The system [employer] generated this result transmitted ref erence range: [...] RDW-SD (test code 47.8 fL 38.5-51.6 = 67868-7) RDW-CV (test code 14.4 % 12.1-15.4 = 788-0) PLT (test code = See_Comment [Automated message] 797-3) The system [employer] generated this result transmitted ref erence range: 150 - 32 8 10*3/?L. The re ference range was not u sed to interpret this result as normal/abnor mal. MPV (test code = 9.8 fL 9.8-13 93750-5) NRBC/100 WBC (test See_Comment [Automat ed message] code = 8856830477) The syste m which generated this result transmitted ref erence range: 0.0 - 10 .0 /100 WBCs. The refer ence range was not u sed to interpret this result as normal/abnor mal. NRBC x10^3 (test <0.01 See_Comment [Automated message] code = 9657043597) The syste m which generated this result transmitted ref erence range: 10*3/?L. The reference range was not used to interpr et this result as normal/abnormal . GRAN MAT (NEUT) % 48.8 % (test code = 770-8) IMM GRAN % (test 0.20 % code = 0625581892) LYMPH % (test code 34.7 % = 736-9) MONO % (test code 10.8 % = 5905-5) EOS % (test code = 4.9 % 713-8) BASO % (test code 0.6 % = 706-2) GRAN MAT 2.49 10*3/uL 1.99-6.95 x10^3(ANC) (test code = 4511250671) IMM GRAN x10^3 <0.03 0-0.06 (test code = 7900478873) LYMPH x10^3 (test 1.77 10*3/uL 1.09-3.23 code = 731-0) MONO x10^3 (test 0.55 10*3/uL 0.36-1.02 code = 742-7) EOS x10^3 (test 0.25 10*3/uL 0.06-0.53 code = 711-2) BASO x10^3 (test 0.03 10*3/uL 0.01-0.09 code = 704-7) NPI:[id number] CHEST 1 [id number] 03:06:08 No acute cardiopulmonary process. Unchanged enlargement [...] Results Inft User - 03/04/2020 10:07 PM CDTPROCEDURE: XR CHEST 1 VWCLINICAL INDICATION: chest COMPARISON: 01/15/2020TECHNIQUE: A frontal view of the chest was obtainedFINDINGS:No focal consolidation, pleural effusion, or pneumothorax. The cardiac silhouette is mildly to moderately enlarged, unchanged.Atherosclerotic calcifications are seen in the aortic arch.No acute osseous abnormality. Spinal stimulator leads terminating over themid to lower thoracic spine.IMPRESSIONNo acute cardiopulmonary process.Unchanged enlargement of the cardiac silhouette. Preliminary Report Dictated by Resident: Artemio Stratton, Lauro Aguilar MD., have reviewed this study and agree with the abovereport. CORONAVIRUS COVID-19 [id number] 00:34:00 Test Item Value Reference Range Interpretation Comments SARS-CoV-2 (test code = Not Detected Not Detected 01768-3) ALYSSA (test code = ALYSSA) ID NOW COVID-19 Assay is an isothermal nucleic acid amplification test intended for the qualitative detection of nucleic acid from SARS-CoV-2 viral RNA in nasopharyngeal ([employer]) specimens. It is used under Emergency [...] indicated. Lab Interpretation Normal (test code = 95694-7) NPI:[id number] [id number] 00:08:00 Test Item Value Reference Range Interpretation Comments TROPONIN I (test 0.056 ng/mL See_Comment H [Automated code = 1357975854) message] The system which generated this result [...] ? Lab Interpretation Abnormal (test code = 55980-6) NPI:[id number] 00:04:00 Test Item Value Reference Range Interpretation Comments NT-proBNP (test code 562 pg/mL See_Comment H [Autom ated = 4143277260) message] The system which generated this result transmitted reference range : <=450. The reference range was not used to interpret this result as normal/abnormal . ALYSSA (test code = ALYSSA) Biotin has been reported to cause a negative bias, interpret results relative to patient's use of biotin. Lab Interpretation Abnormal (test code = 11216-9) NPI:[id number] Time (PT) / [id number] 23:57:00 Test Item Value Reference Range Interpretation [...] tions. Lab Interpretation (test Normal code = 21588-3) NPI:[id number] Metabolic Panel (NA, K, CL, CO2, GLUCOSE, BUN, CREATININE, [place])2020-03-04 23:56:00 Test Item Value Reference Range Interpretation Comments NA (test code = 139 mmol/L 135-145 0392645487) K (test code = 4.1 mmol/L 3.5-5 5728066315) CL (test code = 102 mmol/L 98-108 5153048871) CO2 TOTAL (test code = 29 mmol/L 23-31 6349167808) AGAP (test code = 2-16 8139883829) BUN (test code = 23 mg/dL 7-23 8848928676) GLUCOSE (test code = 193 mg/dL 70-110 H 0088957753) CREATININE (test code = 1.25 mg/dL 0.6-1.25 1905950275) CALCIUM (test code = 9.7 mg/dL 8.6-10.6 2624074386) eGFR Calculation mL/min/1.73m2 (Non-) (test code = 4649392808) eGFR Calculation mL/min/1.73m2 () (test code = 8579610444) ALYSSA (test code = ALYSSA) Association of [...] tests). Lab Interpretation Abnormal (test code = 78887-3) NPI:[id number] Function Panel (ALB, T.PRO, BILI T, BU/BC, ALT, AST, ALK PHOS)2020-03-04 23:56:00 Test Item Value Reference Range Interpretation Comments TOTAL BILI (test code = 6088188468) 1.1 mg/dL 0.1-1.1 BILI UNCON (test code = 3601572677) 1.1 mg/dL 0.1-1.1 BILI CONJ (test code = 1637466065) 0.0 mg/dL 0-0.3 T PROTEIN (test code = 6385463611) 7.1 g/dL 6.3-8.2 ALBUMIN (test code = 6467900429) 4.1 g/dL 3.5-5 ALK PHOS (test code = 5055348962) 61 U/L 34-122 ALTv (test code = 1742-6) 16 U/L 5-50 AST(SGOT) (test code = 6312266579) 23 U/L 13-40 Lab Interpretation (test code = Normal 22776-6) NPI:[id number] Wruuw3548-54-32 23:56:00 Test Item Value Reference Range Interpretation Comments LIPASE (test code = 7295684208) 149 U/L 0-220 Lab Interpretation (test code = Normal 13463-4) NPI:[id number] 23:56:00 Test Item Value Reference Range Interpretation [...] seconds. Lab Interpretation Normal (test code = 23928-4) NPI:[id number] WITH [id number] 23:46:00 Test Item Value Reference Range Interpretation Comments WBC (test code = See_Comment [Automated 3419-2) message] The sy stem which generated this [...] RDW-SD (test code = 48.3 fL 38.5-51.6 17411-3) RDW-CV (test code = 14.7 % 12.1-15.4 788-0) PLT (test code = See_Comment [Automated 777-3) message] The sy stem which generated this result transmitted reference range : 150 - 328 10*3/ ?L. The reference r corey was not used to interpret this result as normal/abnormal . MPV (test code = 9.8 fL 9.8-13 39144-3) NRBC/100 WBC (test See_Comment [Automat ed code = 2120129608) message] The system which generated this result transmitted reference range : 0.0 - 10.0 /100 WBCs. The refer ence range was not u sed to interpret th is result as normal/abnormal . NRBC x10^3 (test code <0.01 See_Comment [Auto mated = 0783186117) message] The s ystem which generated this result transmitted reference range : 10*3/?L. The reference range was not used to interpret this result as normal/abnormal . GRAN MAT (NEUT) % 60.1 % (test code = 770-8) IMM GRAN % (test code 0.20 % = 8600145930) LYMPH % (test code = 26.4 % 736-9) MONO % (test code = 9.9 % 5905-5) EOS % (test code = 2.8 % 713-8) BASO % (test code = 0.6 % 706-2) GRAN MAT x10^3(ANC) 3.17 10*3/uL 1.99-6.95 (test code = 2194289409) IMM GRAN x10^3 (test <0.03 0-0.06 code = 2401112100) LYMPH x10^3 (test code 1.39 10*3/uL 1.09-3.23 = 731-0) MONO x10^3 (test code 0.52 10*3/uL 0.36-1.02 = 742-7) EOS x10^3 (test code = 0.15 10*3/uL 0.06-0.53 711-2) BASO x10^3 (test code 0.03 10*3/uL 0.01-0.09 = 704-7) Lab Interpretation Abnormal (test code = 83304-5) NPI:[id number] GLUCOSE (AUTOMATED)2020-03-02 16:04:00 Test Item Value Reference Range Interpretation Comments POCT GLU (test code = 6730585900) 214 mg/dL 70-110 H Lab Interpretation (test code = Abnormal 65346-7) NPI:[id number] GLUCOSE (AUTOMATED)2020-03-02 16:04:00 Test Item Value Reference Range Interpretation Comments POCT GLU (test code = 9146701374) 271 mg/dL 70-110 H Lab Interpretation (test code = Abnormal 72087-4) NPI:[id number] [id number] 09:43:00 Test Item Value Reference Range Interpretation Comments NT-proBNP (test code 1670 pg/mL See_Comment H [Autom ated = 5363162175) message] The system which generated this result transmitted reference range : <=450. The reference range was not used to interpret this result as normal/abnormal . ALYSSA (test code = ALYSSA) Biotin has been reported to cause a negative bias, interpret results relative to patient's use of biotin. Lab Interpretation Abnormal (test code = 68643-0) NPI:[id number] METABOLIC PANEL (NA, K, CL, CO2, GLUCOSE, BUN, CREATININE, [place])2020-03-02 09:33:00 Test Item Value Reference Range Interpretation Comments NA (test code = 143 mmol/L 135-145 1263317521) K (test code = 3.8 mmol/L 3.5-5 5224840463) CL (test code = 105 mmol/L 98-108 9054407612) CO2 TOTAL (test code = 28 mmol/L 23-31 6757497588) AGAP (test code = 2-16 4972095279) BUN (test code = 19 mg/dL 7-23 0044250205) GLUCOSE (test code = 152 mg/dL 70-110 H 2655054478) CREATININE (test code = 1.18 mg/dL 0.6-1.25 6420125565) CALCIUM (test code = 9.0 mg/dL 8.6-10.6 9565968112) eGFR Calculation mL/min/1.73m2 (Non-) (test code = 8108917241) eGFR Calculation mL/min/1.73m2 () (test code = 1714184574) ALYSSA (test code = ALYSSA) Association of [...] tests). Lab Interpretation Abnormal (test code = 66453-1) NPI:[id number] 09:33:00 Test Item Value Reference Range Interpretation Comments MAGNESIUM (test code = 3267147219) 1.8 mg/dL 1.7-2.4 Lab Interpretation (test code = Normal 30285-3) NPI:[id number] GLUCOSE (AUTOMATED)2020-03-01 20:42:00 Test Item Value Reference Range Interpretation Comments POCT GLU (test code = 9148168880) 231 mg/dL 70-110 H Lab Interpretation (test code = Abnormal 37870-8) NPI:[id number] B12, [id number] 11:51:00 Test Item Value Reference Range Interpretation Comments VIT B12 (test code = 325 pg/mL 240-930 9971191946) ALYSSA (test code = ALYSSA) Biotin has been reported to cause a positive bias, interpret results relative to patient's use of biotin. Lab Interpretation (test Normal code = 93500-8) NPI:[id number] 11:49:00 Test Item Value Reference Range Interpretation Comments FOLATE SER (test code = >20.0 3-20 H Slig ht hemolysis 1414592282) Lab Interpretation (test Abnormal code = 24125-5) NPI:[id number] 10:49:00 Test Item Value Reference Range Interpretation Comments Procalcitonin (test 3.05 ng/mL <0.07 H code = 6885561738) ALYSSA (test code = ALYSSA) INTERPRETATION OF [...] lung abscess/empyema. For further information please refer to:[email or web address] Lab Interpretation Abnormal (test code = 25945-6) NPI:[id number] [id number] 09:58:00 Test Item Value Reference Range Interpretation Comments TROPONIN I (test 0.093 ng/mL See_Comment H [Automated code = 7567796489) message] The system which generated this result [...] ? Lab Interpretation Abnormal (test code = 38483-1) NPI:[id number] [id number]-[id number] 09:55:00 Test Item Value Reference Range Interpretation Comments NT-proBNP (test code 4450 pg/mL See_Comment H [Autom ated = 4891412771) message] The system which generated this result transmitted reference range : <=450. The reference range was not used to interpret this result as normal/abnormal . ALYSSA (test code = ALYSSA) Biotin has been reported to cause a negative bias, interpret results relative to patient's use of biotin. Lab Interpretation Abnormal (test code = 89825-0) NPI:[id number] Metabolic Panel (NA, K, CL, CO2, GLUCOSE, BUN, CREATININE, [place])2020-03-01 09:50:00 Test Item Value Reference Range Interpretation Comments NA (test code = 141 mmol/L 135-145 4592415165) K (test code = 3.5 mmol/L 3.5-5 0076925274) CL (test code = 105 mmol/L 98-108 1304809289) CO2 TOTAL (test code = 26 mmol/L 23-31 1189802858) AGAP (test code = 2-16 3857814453) BUN (test code = 13 mg/dL 7-23 2976781645) GLUCOSE (test code = 219 mg/dL 70-110 H 2267446879) CREATININE (test code = 1.01 mg/dL 0.6-1.25 9724043472) CALCIUM (test code = 8.7 mg/dL 8.6-10.6 5959196825) eGFR Calculation mL/min/1.73m2 (Non-) (test code = 2599686324) eGFR Calculation mL/min/1.73m2 () (test code = 1300520298) ALYSSA (test code = ALYSSA) Association of [...] tests). Lab Interpretation Abnormal (test code = 29112-4) NPI:[id number] [id number] 09:50:00 Test Item Value Reference Range Interpretation Comments MAGNESIUM (test code = 6269300198) 1.9 mg/dL 1.7-2.4 Lab Interpretation (test code = Normal 59562-6) NPI:[id number] WITH [id number] 09:22:00 Test Item Value Reference Range Interpretation [...] RDW-SD (test code = 47.8 fL 38.5-51.6 92281-7) RDW-CV (test code = 14.8 % 12.1-15.4 788-0) PLT (test code = See_Comment L [Automated 777-3) message] The sy stem which generated this result transmitted reference range : 150 - 328 10*3/ ?L. The reference r corey was not used to interpret this result as normal/abnormal . MPV (test code = 9.9 fL 9.8-13 55167-2) NRBC/100 WBC (test See_Comment [Automat ed code = 9441957762) message] The system which generated this result transmitted reference range : 0.0 - 10.0 /100 WBCs. The refer ence range was not u sed to interpret th is result as normal/abnormal . NRBC x10^3 (test code <0.01 See_Comment [Auto mated = 9421620201) message] The s [employer] which generated this result transmitted reference range : 10*3/?L. The reference range was not used to interpret this result as normal/abnormal . GRAN MAT (NEUT) % 66.0 % (test code = 770-8) IMM GRAN % (test code 0.30 % = 3862853659) LYMPH % (test code = 20.8 % 736-9) MONO % (test code = 9.5 % 5905-5) EOS % (test code = 2.8 % 713-8) BASO % (test code = 0.6 % 706-2) GRAN MAT x10^3(ANC) 4.44 10*3/uL 1.99-6.95 (test code = 9542913867) IMM GRAN x10^3 (test <0.03 0-0.06 code = 8946339548) LYMPH x10^3 (test code 1.40 10*3/uL 1.09-3.23 = 731-0) MONO x10^3 (test code 0.64 10*3/uL 0.36-1.02 = 742-7) EOS x10^3 (test code = 0.19 10*3/uL 0.06-0.53 711-2) BASO x10^3 (test code 0.04 10*3/uL 0.01-0.09 = 704-7) Lab Interpretation Abnormal (test code = 92500-3) NPI:[id number] HEMOGLOBIN (A1C)2020-03-01 06:49:00 Test Item Value Reference Interpretation Comments Range HGB A1C (test code = See_Comment H [Autom ated 4548-4) message] The system which generated this result transmitted reference range : 4.0 - 6.0 % NGSP. The reference range was not used to interpret this result as normal/abnormal . LAYSSA (test code = %A1C (NGSP) ALYSSA) Interpretation (ADA)4.8-5.6 ? ? Normal or (Non-Diabetic Range)5.7-6.4 ? ? Increased Risk (Pre-Diabetic)>6.5 ?Diabetes Indicated Lab Interpretation Abnormal (test code = 79254-0) NPI:[id number] 06:25:00 Test Item Value Reference Range Interpretation Comments URIC ACID (test code = 8677192212) 2.3 mg/dL 3.6-8 L Lab Interpretation (test code = Abnormal 99348-1) NPI:[id number] 05:25:00 Test Item Value Reference Range Interpretation Comments ESR (test code = See_Comment H [Automated message] [id number]) The system [employer] generated this result transmitted ref erence range: 0 - 10 m m/HR. The reference r corey was not used to interpret this result as normal/abnor mal. Lab Interpretation (test Abnormal code = 84955-7) NPI:[id number] 04:07:00 Test Item Value Reference Range Interpretation Comments NT-proBNP (test code 4080 pg/mL See_Comment H [Autom ated = 6532302268) message] The system which generated this result transmitted reference range : <=450. The reference range was not used to interpret this result as normal/abnormal . ALYSSA (test code = ALYSSA) Biotin has been reported to cause a negative bias, interpret results relative to patient's use of biotin. Lab Interpretation Abnormal (test code = 63878-8) NPI:[id number] GLUCOSE (AUTOMATED)2020-03-01 03:42:00 Test Item Value Reference Range Interpretation Comments POCT GLU (test code = 1445563941) 190 mg/dL 70-110 H Lab Interpretation (test code = Abnormal 39269-8) NPI:[id number] [id number] 03:30:00 Test Item Value Reference Range Interpretation Comments TROPONIN I (test 0.098 ng/mL See_Comment H [Automated code = 3737324958) message] The system which generated this result [...] ? Lab Interpretation Abnormal (test code = 62821-9) NPI:[id number] FUNCTION PANEL (52970) (ALB,T.PRO,BILI T,BU/BC,ALT,AST,ALK PHOS)2020-03-01 03:24:00 Test Item Value Reference Range Interpretation Comments TOTAL BILI (test code = 4495209612) 2.2 mg/dL 0.1-1.1 H BILI UNCON (test code = 0897499691) 2.0 mg/dL 0.1-1.1 H BILI CONJ (test code = 0193465183) 0.0 mg/dL 0-0.3 T PROTEIN (test code = 7085313187) 6.7 g/dL 6.3-8.2 ALBUMIN (test code = 7470510360) 4.0 g/dL 3.5-5 ALK PHOS (test code = 2718132397) 48 U/L 34-122 ALTv (test code = 1742-6) 18 U/L 5-50 AST(SGOT) (test code = 7796190339) 57 U/L 13-40 H Lab Interpretation (test code = Abnormal 92079-8) NPI:[id number] [id number] 03:17:00 Test Item Value Reference Range Interpretation Comments PHOSPHORUS (test code = 3.1 mg/dL 2.5-5 Slig ht hemolysis 9777605797) Lab Interpretation (test Normal code = 31354-3) NPI:[id number] TIME / [id number] 03:08:00 Test Item Value Reference Range Interpretation [...] tions. Lab Interpretation (test Normal code = 68154-1) NPI:[id number] [id number] 03:01:00 Test Item Value Reference Range Interpretation Comments CK (test code = 8457470404) 68 U/L 33-194 Lab Interpretation (test code = Normal 63905-4) NPI:[id number] 02:41:00 Test Item Value Reference Range Interpretation Comments URIC ACID (test code = 2477817749) 2.3 mg/dL 3.6-8 L Lab Interpretation (test code = Abnormal 01901-6) NPI:[id number] STIMULATING [id number] 02:26:00 Test Item Value Reference Range Interpretation Comments TSH (test code = See_Comment [Automated message] 1456641684) The system ic h generated this result transmitted ref erence range: 0.45 - 4 .70 mIU/L. The refe rence range was not u sed to interpret this result as normal/abnor mal. Lab Interpretation (test Normal code = 74376-7) NPI:[id number]-ORKFNNIB [id number]-[id number] 02:04:00 Test Item Value Reference Range Interpretation Comments NT-proBNP (test code 4390 pg/mL See_Comment H [Autom ated = 5034483507) message] The system which generated this result transmitted reference range : <=450. The reference range was not used to interpret this result as normal/abnormal . ALYSSA (test code = ALYSSA) Biotin has been reported to cause a negative bias, interpret results relative to patient's use of biotin. Lab Interpretation Abnormal (test code = 34531-8) NPI:[id number] 02:01:00 Test Item Value Reference Range Interpretation Comments MAGNESIUM (test code = 6175822630) 1.5 mg/dL 1.7-2.4 L Lab Interpretation (test code = Abnormal 71678-6) NPI:[id number] 00:22:00 Test Item Value Reference Range Interpretation Comments LIPASE (test code = 7838908706) 68 U/L 0-220 Lab Interpretation (test code = Normal 16701-0) NPI:[id number] COVID-19 [id number] 23:42:00 Test Item Value Reference Range Interpretation Comments SARS-CoV-2 (test code = Not Detected Not Detected 99270-0) ALYSSA (test code = ALYSSA) ID NOW COVID-19 Assay is an isothermal nucleic acid amplification test intended for the qualitative detection of nucleic acid from SARS-CoV-2 viral RNA in nasopharyngeal ([employer]) specimens. It is used under Emergency [...] indicated. Lab Interpretation Normal (test code = 37433-3) NPI:[id number] CHEST 1 VW [id number] 23:26:02 No acute intrathoracic abnormality, specifically no radiographic findingsto suggest COVID-19 pneumonia. Disclaimer: Generally, the findings on chest imaging in COVID-19 are notspecific, and overlap with other infections, including influenza, H1N1,SARS and MERS. According to the Centers for Disease Control (CDC) and recent statement ofthe [place] [employer], viral testing remains the only s pecificmethod of diagnosis. Confirmation with the viral test is required, even ifradiologic findingsare suggestive of COVID-[address]. Preliminary Report Dictated by Resident: Radu Boo MD., have reviewed this study and agree with theabove report.PROCEDURE: CHEST,SINGLE VIEW CLINICAL INDICATION: 79 years Male presenting with chest pain/SOB COMPARISON: Chest radiographs 01/15/2020 FINDINGS: Lines/hardware: Lungs: Mild perivascular congestion is present. No focal consolidation,pleural effusion, or pneumothorax. Mediastinum: The cardiomediastinal silhouette is enlarged, unchanged.Calcifications of the aortic arch. Osseous structures: No acute bony abnormality. The electrodes of a spinalcord stimulating device overlie the mid thoracic spine. [facility], Radiant ResultsInft User - 02/29/2020 [...] Disease Control (CDC) and recent statement ofthe [place] [employer], viral testing remains the only specificmethod of diagnosis. Confirmation with the viral test is required, even ifradiologic findings are suggestive of COVID-[address] Preliminary Report Dictated by Resident: Radu Boo MD., have reviewed this study and agree with theabovereport. Troponin [id number] 22:59:00 Test Item Value Reference Range Interpretation Comments TROPONIN I (test 0.071 ng/mL See_Comment H [Automated code = 2548041123) message] The system which generated this result [...] ? Lab Interpretation Abnormal (test code = 00744-4) NPI:[id number] Metabolic Panel (NA, K, CL, CO2, GLUCOSE, BUN, CREATININE, CA)2020-02-29 22:48:00 Test Item Value Reference Range Interpretation Comments NA (test code = 141 mmol/L 135-145 7582092943) K (test code = 3.2 mmol/L 3.5-5 L 3415593154) CL (test code = 104 mmol/L 98-108 3334361994) CO2 TOTAL (test code = 25 mmol/L 23-31 0452992220) AGAP (test code = 2-16 8788359444) BUN (test code = 12 mg/dL 7-23 9565959184) GLUCOSE (test code = 250 mg/dL 70-110 H 2443216466) CREATININE (test code = 1.02 mg/dL 0.6-1.25 9265567639) CALCIUM (test code = 8.9 mg/dL 8.6-10.6 8530412983) eGFR Calculation mL/min/1.73m2 (Non-) (test code = 9365990913) eGFR Calculation mL/min/1.73m2 () (test code = 2979995674) ALYSSA (test code = ALYSSA) Association of [...] tests). Lab Interpretation Abnormal (test code = 15501-0) NPI:[id number] WITH [id number] 22:41:00 Test Item Value Reference Range Interpretation Comments WBC (test code = See_Comment [Automated 1306-2) message] The sy stem which generated this [...] RDW-SD (test code = 46.6 fL 38.5-51.6 56841-8) RDW-CV (test code = 14.6 % 12.1-15.4 788-0) PLT (test code = See_Comment [Automated 777-3) message] The sy stem which generated this result transmitted reference range : 150 - 328 10*3/ ?L. The reference r corey was not used to interpret this result as normal/abnormal . MPV (test code = 9.7 fL 9.8-13 L 87785-7) NRBC/100 WBC (test See_Comment [Automat ed code = 8276157713) message] The system which generated this result transmitted reference range : 0.0 - 10.0 /100 WBCs. The refer ence range was not u sed to interpret th is result as normal/abnormal . NRBC x10^3 (test code <0.01 See_Comment [Auto mated = 7334858387) message] The s ystem which generated this result transmitted reference range : 10*3/?L. The reference range was not used to interpret this result as normal/abnormal . GRAN MAT (NEUT) % 68.6 % (test code = 770-8) IMM GRAN % (test code 0.30 % = 5646679011) LYMPH % (test code = 18.6 % 736-9) MONO % (test code = 10.1 % 5905-5) EOS % (test code = 1.8 % 713-8) BASO % (test code = 0.6 % 706-2) GRAN MAT x10^3(ANC) 4.29 10*3/uL 1.99-6.95 (test code = 5266405699) IMM GRAN x10^3 (test <0.03 0-0.06 code = 9628088626) LYMPH x10^3 (test code 1.16 10*3/uL 1.09-3.23 = 731-0) MONO x10^3 (test code 0.63 10*3/uL 0.36-1.02 = 742-7) EOS x10^3 (test code = 0.11 10*3/uL 0.06-0.53 711-2) BASO x10^3 (test code 0.04 10*3/uL 0.01-0.09 = 704-7) Lab Interpretation Abnormal (test code = 68718-9) NPI:[id number] Acid Whole [id number] 22:38:00 Test Item Value Reference Range Interpretation Comments LACTIC ACID (test code = 1.88 mmol/L 0.3-2.6 1971589944) NPI:[id number] GLUCOSE (AUTOMATED)2020-01-17 18:18:00 Test Item Value Reference Range Interpretation Comments POCT GLU (test code = 5512936683) 290 mg/dL 70-110 H Lab Interpretation (test code = Abnormal 79793-0) NPI:[id number] [id number] 18:01:00 Test Item Value Reference Range Interpretation Comments TROPONIN I (test 0.065 ng/mL See_Comment H [Automated code = 2946162409) message] The system which generated this result [...] ? Lab Interpretation Abnormal (test code = 17699-1) NPI:[id number] 17:10:00 Test Item Value Reference Range Interpretation [...] seconds. Lab Interpretation Abnormal (test code = 92138-1) NPI:[id number] GLUCOSE (AUTOMATED)2020-01-17 11:59:00 Test Item Value Reference Range Interpretation Comments POCT GLU (test code = 3286584337) 185 mg/dL 70-110 H Lab Interpretation (test code = Abnormal 05870-0) NPI:[id number] [id number] 11:23:00 Test Item Value Reference Range Interpretation Comments TROPONIN I (test 0.073 ng/mL See_Comment H [Automated code = 5427832814) message] The system which generated this result [...] ? Lab Interpretation Abnormal (test code = 99003-6) NPI:[id number] Metabolic Panel (NA, K, CL, CO2, GLUCOSE, BUN, CREATININE, CA)2020-01-17 11:16:00 Test Item Value Reference Range Interpretation Comments NA (test code = 136 mmol/L 135-145 3577078401) K (test code = 3.3 mmol/L 3.5-5 L 2441730609) CL (test code = 101 mmol/L 98-108 6736957880) CO2 TOTAL (test code = 26 mmol/L 23-31 1668211872) AGAP (test code = 2-16 6603253547) BUN (test code = 19 mg/dL 7-23 7022200527) GLUCOSE (test code = 227 mg/dL 70-110 H 6413790129) CREATININE (test code = 1.33 mg/dL 0.6-1.25 H 9179120414) CALCIUM (test code = 9.1 mg/dL 8.6-10.6 8218830973) eGFR Calculation mL/min/1.73m2 (Non-) (test code = 8568325734) eGFR Calculation mL/min/1.73m2 () (test code = 9986503618) ALYSSA (test code = ALYSSA) Association of [...] tests). Lab Interpretation Abnormal (test code = 88711-5) NPI:[id number] 11:00:00 Test Item Value Reference Range Interpretation [...] seconds. Lab Interpretation Abnormal (test code = 80340-3) NPI:[id number] WITH [id number] 10:43:00 Test Item Value Reference Range Interpretation Comments WBC (test code = See_Comment [Automated message] 6690-2) The system [employer] generated this result transmitted ref erence range: 4.20 - 1 0.70 10*3/?L. The re ference range was not u sed to interpret this result as normal/abnor mal. RBC (test code = See_Comment [Automated message] 789-8) The system [employer] generated this result transmitted ref erence range: [...] RDW-SD (test code 41.5 fL 38.5-51.6 = 09851-6) RDW-CV (test code 12.8 % 12.1-15.4 = 788-0) PLT (test code = See_Comment [Automated message] 777-3) The system whic h generated this result transmitted ref erence range: 150 - 32 8 10*3/?L. The re ference range was not u sed to interpret this result as normal/abnor mal. MPV (test code = 10.7 fL 9.8-13 86806-0) NRBC/100 WBC (test See_Comment [Automat ed message] code = 6180881274) The syste m which generated this result transmitted ref erence range: 0.0 - 10 .0 /100 WBCs. The refer ence range was not u sed to interpret this result as normal/abnor mal. NRBC x10^3 (test <0.01 See_Comment [Automated message] code = 2105816585) The syste m which generated this result transmitted ref erence range: 10*3/?L. The reference range was not used to interpr et this result as normal/abnormal . GRAN MAT (NEUT) % 56.1 % (test code = 770-8) IMM GRAN % (test 0.30 % code = 4019878360) LYMPH % (test code 29.5 % = 736-9) MONO % (test code 9.9 % = 5905-5) EOS % (test code = 3.3 % 713-8) BASO % (test code 0.9 % = 706-2) GRAN MAT 3.73 10*3/uL 1.99-6.95 x10^3(ANC) (test code = 8955787819) IMM GRAN x10^3 <0.03 0-0.06 (test code = 1571379778) LYMPH x10^3 (test 1.96 10*3/uL 1.09-3.23 code = 731-0) MONO x10^3 (test 0.66 10*3/uL 0.36-1.02 code = 742-7) EOS x10^3 (test 0.22 10*3/uL 0.06-0.53 code = 711-2) BASO x10^3 (test 0.06 10*3/uL 0.01-0.09 code = 704-7) NPI:[id number] GLUCOSE (AUTOMATED)2020-01-17 01:49:00 Test Item Value Reference Range Interpretation Comments POCT GLU (test code = 1826595358) 305 mg/dL 70-110 H Lab Interpretation (test code = Abnormal 39099-6) NPI:[id number] GLUCOSE (AUTOMATED)2020-01-17 00:01:00 Test Item Value Reference Range Interpretation Comments POCT GLU (test code = 7275426368) 271 mg/dL 70-110 H Lab Interpretation (test code = Abnormal 96275-9) NPI:[id number] 22:23:00 Test Item Value Reference Range Interpretation [...] seconds. Lab Interpretation Abnormal (test code = 88706-7) NPI:[id number] [id number] 21:22:00 Test Item Value Reference Range Interpretation Comments TROPONIN I (test 0.061 ng/mL See_Comment H [Automated code = 1785686417) message] The system which generated this result [...] ? Lab Interpretation Abnormal (test code = 62543-3) NPI:[id number] GLUCOSE (AUTOMATED)2020-01-16 17:37:00 Test Item Value Reference Range Interpretation Comments POCT GLU (test code = 6894558905) 271 mg/dL 70-110 H Lab Interpretation (test code = Abnormal 87710-4) NPI:[id number] 12:47:00 Test Item Value Reference Range Interpretation [...] seconds. Lab Interpretation Abnormal (test code = 28694-6) NPI:[id number] [id number] 12:35:00 Test Item Value Reference Range Interpretation Comments TROPONIN I (test 0.074 ng/mL See_Comment H [Automated code = 7951040987) message] The system which generated this result [...] ? Lab Interpretation Abnormal (test code = 00518-5) NPI:[id number] PANEL (95182)(TOTAL CHOLESTEROL, TRIGLYCERIDES, HDL) 2020-01-16 12:23:00 Test Item Value Reference Range Interpretation Comments CHOL (test code = 95 mg/dL 120-200 L 2023098207) HDL (test code = 44 mg/dL >40 7502603287) HDLC RATIO (test code = See_Comment [Au tomated message] 7623020112) The system [employer] generated this result transmitted ref erence range: <=5.0. T he reference range was not used to int erpret this result as normal/abnormal . TRIG (test code = 89 mg/dL 30-170 7609062722) LDL CHOL (test code = 33 mg/dL See_Comment [Auto mated message] 17295-6) The system [employer] generated this result transmitted ref erence range: <=160. T he reference range was not used to int erpret this result as normal/abnormal . VLDL (test code = 18 mg/dL 5-60 9762089171) Lab Interpretation (test Abnormal code = 92613-7) NPI:[id number] Hemoglobin (A1C)2020-01-16 09:03:00 Test Item Value Reference Interpretation Comments Range HGB A1C (test code = See_Comment H [Autom ated 6878-4) message] The system which generated this result transmitted reference range : 4.0 - 6.0 % NGSP. The reference range was not used to interpret this result as normal/abnormal . ALYSSA (test code = %A1C (NGSP) ALYSSA) Interpretation (ADA)4.8-5.6 ? ? Normal or (Non-Diabetic Range)5.7-6.4 ? ? Increased Risk (Pre-Diabetic)>6.5 ?Diabetes Indicated Lab Interpretation Abnormal (test code = 66884-7) NPI:[id number] Mine9861-35-75 05:48:18Chraanjit Heck MD ? ? 01/15/2020 11:48 PMCritical CarePerformed by: Charanjit Heck MDAuthorized by: Charanjit Heck MD Critical care provider statement: ?Critical care time (minutes): ?45 ?Critical care was necessary to treat or prevent imminent or life- threatening deterioration of the following conditions: ?Cardiac failure ?Critical care was time spent personally by me on the following activities: ?Blood draw for specimens, development of treatment plan with patient or surrogate, discussions with consultants, evaluation of patient's response to treatment, ordering and performing treatments and interventions, ordering and review of laboratory studies, pulse oximetry, ordering and review of rad iographic studies, re-evaluation of patient's condition, review of old charts and examination of patientNPI:[id number] Time (PT) / [id number] 05:28:00 Test Item Value Reference Range Interpretation [...] tions. Lab Interpretation (test Normal code = 53287-4) NPI:[id number] 05:27:00 Test Item Value Reference Range Interpretation [...] seconds. Lab Interpretation Normal (test code = 98726-1) NPI:[id number] [id number] 05:11:00 Test Item Value Reference Range Interpretation Comments TROPONIN I (test 0.075 ng/mL See_Comment H [Automated code = 7196974692) message] The system which generated this result [...] ? Lab Interpretation Abnormal (test code = 88776-4) NPI:[id number]-HZWSVBTW GOL-FZG2633-29-02 05:08:00 Test Item Value Reference Range Interpretation Comments NT-proBNP (test code 896 pg/mL See_Comment H [Autom ated = 9628915114) message] The system which generated this result transmitted reference range : <=450. The reference range was not used to interpret this result as normal/abnormal . ALYSSA (test code = ALYSSA) Biotin has been reported to cause a negative bias, interpret results relative to patient's use of biotin. Lab Interpretation Abnormal (test code = 77515-3) NPI:[id number] Metabolic Panel (NA, K, CL, CO2, GLUCOSE, BUN, CREATININE, CA)2020-01-16 04:59:00 Test Item Value Reference Range Interpretation Comments NA (test code = 136 mmol/L 135-145 4222409803) K (test code = 4.0 mmol/L 3.5-5 5720020565) CL (test code = 101 mmol/L 98-108 6208120569) CO2 TOTAL (test code = 27 mmol/L 23-31 0945957378) AGAP (test code = 2-16 8511406667) BUN (test code = 17 mg/dL 7-23 0030401211) GLUCOSE (test code = 445 mg/dL 70-110 H 8446679360) CREATININE (test code = 1.29 mg/dL 0.6-1.25 H 2184322090) CALCIUM (test code = 8.8 mg/dL 8.6-10.6 1042970383) eGFR Calculation mL/min/1.73m2 (Non-) (test code = 9303198441) eGFR Calculation mL/min/1.73m2 () (test code = 9826180696) ALYSSA (test code = ALYSSA) Association of [...] tests). Lab Interpretation Abnormal (test code = 01184-6) NPI:[id number] Function Panel (ALB, T.PRO, BILI T, BU/BC, ALT, AST, ALK PHOS)2020-01-16 04:59:00 Test Item Value Reference Range Interpretation Comments TOTAL BILI (test code = 6730260671) 1.3 mg/dL 0.1-1.1 H BILI UNCON (test code = 4731508181) 1.1 mg/dL 0.1-1.1 BILI CONJ (test code = 9436900090) 0.0 mg/dL 0-0.3 T PROTEIN (test code = 1991376368) 6.3 g/dL 6.3-8.2 ALBUMIN (test code = 7217901380) 3.9 g/dL 3.5-5 ALK PHOS (test code = 4223509297) 67 U/L 34-122 ALTv (test code = 1742-6) 15 U/L 5-50 AST(SGOT) (test code = 7022371372) 23 U/L 13-40 Lab Interpretation (test code = Abnormal 10820-8) NPI:[id number] 1 Vfuq7628-16-13 04:54:13Impression: Moderate cardiomegaly without acute pulmonary process. RL: 460 AFC: [id number] Indication: Chest pain Comparison: None available Findings: Single AP view of the chest. The cardiopericardial silhouette ismoderately enlarged. The lungs are clear bilaterally. The visualized bonythorax is intact. A thoracic neurostimulator dev ice is in place. [facility], Radiant Results Inft User - 01/15/2020 10:55 PM CSTIndication: Chest painComparison: None availableFindings: Single AP view of the chest. The cardiopericardial silhouette ismoderately enlarged. The lungs are clear bilaterally. The visualized bonythorax is intact. A thoracic neuro stimulator device is in place.IMPRESSIONImpression:Moderate cardiomegaly without acute pulmonary process.RL: 460AFC: [id number] signed by Esperanza Rosado MD, PhD at 01/15/2020 10:54 PMNPI:[id number] WITH DIFFERENTIAL 2020-01-16 04:51:00 Test Item Value Reference Range Interpretation [...] RDW-SD (test code = 40.7 fL 38.5-51.6 72985-2) RDW-CV (test code = 12.8 % 12.1-15.4 788-0) PLT (test code = See_Comment L [Automated 777-3) message] The sy stem which generated this result transmitted reference range : 150 - 328 10*3/ ?L. The reference r corey was not used to interpret this result as normal/abnormal . MPV (test code = 10.6 fL 9.8-13 52909-9) IPF % (test code = 2.8 % 1.2-10.7 Platelet count 3188045618) measured by fluorescence method. NRBC/100 WBC (test See_Comment [Automat ed code = 8590123836) message] The system which generated this result transmitted reference range : 0.0 - 10.0 /100 WBCs. The refer ence range was not u sed to interpret th is result as normal/abnormal . NRBC x10^3 (test code <0.01 See_Comment [Auto mated = 1742320491) message] The s ystem which generated this result transmitted reference range : 10*3/?L. The reference range was not used to interpret this result as normal/abnormal . GRAN MAT (NEUT) % 56.0 % (test code = 770-8) IMM GRAN % (test code 0.20 % = 5047897995) LYMPH % (test code = 30.5 % 736-9) MONO % (test code = 9.6 % 5905-5) EOS % (test code = 2.8 % 713-8) BASO % (test code = 0.9 % 706-2) GRAN MAT x10^3(ANC) 2.98 10*3/uL 1.99-6.95 (test code = 1712422156) IMM GRAN x10^3 (test <0.03 0-0.06 code = 5446084258) LYMPH x10^3 (test code 1.62 10*3/uL 1.09-3.23 = 731-0) MONO x10^3 (test code 0.51 10*3/uL 0.36-1.02 = 742-7) EOS x10^3 (test code = 0.15 10*3/uL 0.06-0.53 711-2) BASO x10^3 (test code 0.05 10*3/uL 0.01-0.09 = 704-7) Lab Interpretation Abnormal (test code = 70263-8) "
[2022-03-25] MEDS ORDERED: MORPHINE 4 MG/ML SYR ONE (15:38)
[2022-03-25] MEDS ORDERED: ONDANSETRON 4 MG/2 ML VIAL ONE (15:39)
--- NOTE | 2022-03-25 16:28 | RAD REPORT ---
EXAM DESCRIPTION: RAD - Hip Left 2 View - 03/25/2022 4:23 pm CLINICAL HISTORY: hip pain COMPARISON: Hip Left 2 View dated 08/06/2020 FINDINGS: Mild osteoarthritis affects the left hip. No fracture, dislocation or AVN.
--- NOTE | 2022-03-25 17:44 | EDPHYS ---
Physician Documentation [facility] Name: Demetrius Sarmiento Age: 81 yrs Sex: Male : 1940 Arrival Date: 03/25/2022 Time: 15:07 Bed 26 Private MD: ED Physician Esteban Martinez HPI: 03/25 16:44 This 81 yrs old Male presents to ER via EMS with complaints of left leg pain. jmm 16:44 The patient presents with pain. Onset: The symptoms/episode began/occurred 4 month(s) jmm ago. This is an 81 year old male with a history of chf, hlp, dm, chronic pain that presents to the ED with complaints of left lateral leg pain. Ongoing for months. Patient has visited the ED multiple times a week. Patient states he has not followed up outpatient with orthopedics for this. . Historical: - Allergies: 15:18 No Known Allergies; jb4 - Home Meds: 15:18 atorvastatin 40 mg Oral tab 1 tab nightly [Active]; furosemide 20 mg Oral tab 1 tab jb4 once daily [Active]; isosorbide mononitrate 120 mg Oral Tb24 1 tab once daily [Active]; clopidogrel 75 mg Oral tab 1 tab once daily [Active]; Januvia 50 mg Oral tab 1 tab once daily [Active]; aspirin 81 mg Oral TbEC 1 tab once daily [Active]; potassium chloride 10 mEq Oral TbER 1 tab once daily [Active]; donepezil 5 mg Oral tab 1 tab nightly [Active]; - PMHx: 15:18 CHF; High Cholesterol; Diabetes - IDDM; Chronic pain; chronic kidney disease; cardiac jb4 arrest; CAD; Hypertension; Myocardial infarction; - PSHx: 15:18 4 heart stents; jb4 - Immunization history:: Adult Immunizations up to date. - Social history:: Smoking status: Patient/guardian denies using tobacco, Patient/guardian denies using alcohol, street drugs. ROS: 16:44 Constitutional: Negative for fever, chills, and weight loss, Cardiovascular: Negative jmm for chest pain, palpitations, and edema, Respiratory: Negative for shortness of breath, cough, wheezing, and pleuritic chest pain. 16:44 MS/extremity: Positive for pain. 16:44 All other systems are negative. Exam: 16:44 Head/Face: atraumatic. Eyes: EOMI, no conjunctival erythema appreciated ENT: Moist [facility] Mucus Membranes Neck: Trachea midline, Supple Chest/axilla: Normal chest wall appearance and motion. Cardiovascular: Regular rate and rhythm. No edema appreciated Respiratory: Normal respirations, no respiratory distress appreciated Abdomen/GI: Non distended, soft Back: Normal ROM Skin: General appearance color normal 16:44 Constitutional: The patient appears alert, awake, uncomfortable. 16:44 Musculoskeletal/extremity: left lateral leg pain on palpation, full dorsalis pedis pulse, compartments are soft, NVI. 16:44 Skin: Appearance: Color: normal in color. 16:44 Neuro: extensor hallucis longus intact bilaterally. 16:44 Psych: Behavior/mood is pleasant, cooperative. Vital Signs: 15:07 BP 130 / 98; Pulse 111; Resp 21; Temp 98.0(TE); Pulse Ox 100% on R/A; Pain 10/10; jb4 15:37 BP 131 / 80; Pulse 103; Resp 18; Pulse Ox 100% ; Pain 10/10; jh6 17:23 BP 124 / 70; Pulse 97; Resp 20; Pulse Ox 100% ; Pain 4/10; jh6 MDM: 15:10 Patient medically screened. [facility] 17:42 Data reviewed: vital signs, nurses notes. Counseling: I had a detailed discussion with rohit the patient and/or guardian regarding: the historical points, exam findings, and any diagnostic results supporting the discharge/admit diagnosis, radiology results, the need for outpatient follow up, to return to the emergency department if symptoms worsen or persist or if there are any questions or concerns that arise at home. ED course: Pain is completely resolved in the ER. Based on the localization of pain. I do not suspect sciatica. More likely a more localized radicular pain, greater trochanter bursitis, radicular pain coming from the left hip. Patient advised follow with orthopedics and otherwise given strict return precautions. Patient sugars been. 03/25 15:14 Order name: Hip Left 2 View XRAY; Complete Time: 16:36 [facility] 03/25 15:14 Order name: Saline Lock; Complete Time: 15:37 [facility] 03/25 15:14 Order name: Misc. Order: lidocaine patch, left thigh [facility] Administered Medications: 15:36 Drug: Zofran (Ondansetron) 4 mg Route: IVP; Site: left hand; [facility] 15:37 Drug: morphine 4 mg Route: IVP; Site: left hand; [facility] Disposition: 18:13 Co-signature as Attending Physician, Esteban Martinez MD I agree with the assessment and kdr plan of care. Disposition Summary: 03/25/22 17:43 Discharge Ordered Location: Home [facility] Condition: Stable jm Diagnosis - Pain in left hip jm - Pain in left leg [facility] Followup: [facility] - With: Jeremi Muñoz MD - When: 2 - 3 days - Reason: Recheck today's complaints, Continuance of care, Re-evaluation by your physician Discharge Instructions: - Discharge Summary Sheet [facility] - Hip Pain [facility] Forms: - Medication Reconciliation Form [facility] - Thank You Letter [facility] - Antibiotic Education [facility] - Prescription Opioid Use [facility] Prescriptions: - orphenadrine citrate 100 mg Oral Tablet Sustained Release - take 1 tablet by ORAL route 2 times per day As needed; 20 tablet; Refills: 0, [facility] Product Selection Permitted Signatures: Dispatcher [employer] EDMS Esteban Martinez MD MD kdr Mickail, Joel, PA PA [facility] Ceasar Jenkins, RN RN jb4 Halle Huang RN RN jh6
--- NOTE | 2022-03-25 17:44 | ER ---
Nurse's Notes [facility] Name: Demetrius Sarmiento Age: 81 yrs Sex: Male : 1940 Arrival Date: 03/25/2022 Time: 15:07 Bed 26 Private MD: Diagnosis: Pain in left hip;Pain in left leg Presentation: 03/25 15:07 Chief complaint: EMS states: He is complaining of left lower back pain and leg pain jb4 that has been bothering him for a month. 15:07 Coronavirus screen: At this time, the client does not indicate any symptoms associated jb4 with coronavirus-19. Ebola Screen: No symptoms or risks identified at this time. Initial Sepsis Screen: Does the patient meet any 2 criteria? RR > 20 per min. HR > 90 bpm. Yes Does the patient have a suspected source of infection? No. Patient's initial sepsis screen is negative. Risk Assessment: Do you want to hurt yourself or someone else? Patient reports no desire to harm self or others. Onset of symptoms was February 14, 2022. Transition of care: patient was not received from another setting of care. 15:07 Method Of Arrival: [facility] jb4 15:07 Acuity: [facility] 3 jb4 Historical: - Allergies: 15:18 No Known Allergies; jb4 - Home Meds: 15:18 atorvastatin 40 mg Oral tab 1 tab nightly [Active]; furosemide 20 mg Oral tab 1 tab jb4 once daily [Active]; isosorbide mononitrate 120 mg Oral Tb24 1 tab once daily [Active]; clopidogrel 75 mg Oral tab 1 tab once daily [Active]; Januvia 50 mg Oral tab 1 tab once daily [Active]; aspirin 81 mg Oral TbEC 1 tab once daily [Active]; potassium chloride 10 mEq Oral TbER 1 tab once daily [Active]; donepezil 5 mg Oral tab 1 tab nightly [Active]; - PMHx: 15:18 CHF; High Cholesterol; Diabetes - IDDM; Chronic pain; chronic kidney disease; cardiac jb4 arrest; CAD; Hypertension; Myocardial infarction; - PSHx: 15:18 4 heart stents; jb4 - Immunization history:: Adult Immunizations up to date. - Social history:: Smoking status: Patient/guardian denies using tobacco, Patient/guardian denies using alcohol, street drugs. Screenin:37 Abuse screen: Denies threats or abuse. Denies injuries from another. Nutritional jh6 screening: No deficits noted. Tuberculosis screening: No symptoms or risk factors identified. Fall Risk Assessment: 15:38 General: Appears distressed, uncomfortable, well groomed, well nourished, Behavior is jh6 cooperative, anxious. Pain: Complains of pain in coccyx, left lower back and right lower back Pain radiates to left leg Pain currently is 10 out of 10 on a pain scale. Quality of pain is described as burning, aching, sharp, shooting, Pain began OVER A MONTH WITHOUT TRUAMA Is intermittent, Aggravated by increased activity, repositioning, weight bearing. 17:22 General: Appears comfortable. Pain: Pain currently is 4 out of 10 on a pain scale. jh6 Quality of pain is described as aching, Alleviated by medications, Aggravated by increased activity, repositioning, weight bearing. Vital Signs: 15:07 BP 130 / 98; Pulse 111; Resp 21; Temp 98.0(TE); Pulse Ox 100% on R/A; Pain 10/10; jb4 15:37 BP 131 / 80; Pulse 103; Resp 18; Pulse Ox 100% ; Pain 10/10; jh6 17:23 BP 124 / 70; Pulse 97; Resp 20; Pulse Ox 100% ; Pain 4/10; jh6 ED Course: 15:07 Patient arrived in ED. ds1 15:10 Cosmo Cordero PA is PHCP. jmm 15:10 Esteban Martinez MD is Attending Physician. jmm 15:18 Triage completed. jb4 15:18 Arm band placed on right wrist. jb4 15:23 Halle Huang, HERBIE is Primary Nurse. jh6 15:37 Inserted saline lock: 22 gauge in left hand, using aseptic technique. jh6 15:40 Bed in low position. Call light in reach. Side rails up X2. jh6 16:25 Hip Left 2 View XRAY In Process Unspecified. EDMS 17:43 Jeremi Muñoz MD is Referral Physician. jmm 18:10 No provider procedures requiring assistance completed. IV discontinued, intact, jh6 bleeding controlled, No redness/swelling at site. Pressure dressing applied. Administered Medications: 15:36 Drug: Zofran (Ondansetron) 4 mg Route: IVP; Site: left hand; 6 15:37 Drug: morphine 4 mg Route: IVP; Site: left hand; 6 Outcome: 17:43 Discharge ordered by . rohit 18:10 Discharged to home via wheelchair. 6 18:10 Condition: improved 18:10 Discharge instructions given to patient, Instructed on discharge instructions, follow up and referral plans. Demonstrated understanding of instructions, follow-up care, medications, Prescriptions given X 1. 18:11 Patient left the ED. 6 Signatures: Dispatcher [employer] EDMS Cosmo Cordero PA PA jmm [place], Demi ds1 Ceasar Jenkins, RN RN jb4 Halle Huang, RN RN jh6
[2022-03-25 18:36] VITALS: TEMP 98; O2SAT 100
[2022-03-25 18:43] VITALS: BP 124/70
== END 2022-03-25 18:11 | disposition home or self-care (01) ==
LOC: ER 15:06
DX: M25.552 Pain in left hip (principal); M79.605 Pain in left leg; E11.22 Type 2 diabetes mellitus with diabetic chronic kidney disease; I13.0 Hypertensive heart and chronic kidney disease with heart failure and stage 1 through stage 4 chronic kidney disease, or unspecified chronic kidney disease; N18.9 Chronic kidney disease, unspecified; I50.9 Heart failure, unspecified; Z79.82 Long term (current) use of aspirin; Z95.818 Presence of other cardiac implants and grafts
CPT/HCPCS: 73502; 96375; 96374; 99284; J2405

== ENCOUNTER 2022-03-27 05:45 | Emergency (ER) | payer OTHER ==
--- OUTSIDE RECORDS SUMMARY | 2022-03-27 05:56 | XMS REPORT | Continuity of Care Document ---
:1940 Author Organization [facility] t Address [address] [place] [address] Care Team Providers Name Role Phone Andres [...] Attending Clinician Babar GONG Attending Clinician Justina FLROES Attending Clinician Unavailable Sharon Dimas Attending Clinician [...] Number Effective Date Expiration Date Stacy torres [facility] [id number] 2020 00:00:00 [facility] [id number] 2019 DUAL COMPLETE HMO 00:00:00 MEDICAID OF [place] [id number] 2018 00:00:00 Problems Condition Condition Condition Status Onset Resolution Last Treating Co mments Source Name Details Category Date Date Treatment Clinician Date Unstable Unstable Disease Active 2019- Unive rs angina angina 5-07 ity of 00:00: [place] 00 Medical Branch ALBA (acute ALBA (acute Disease Active 2020- U nivers kidney kidney 4-21 ity of injury) injury) 00:00: [place] [facility] Chest pain Chest pain Disease Active 2019- U nivers 4-21 ity of 00:00: [place] [facility] Chest pain Chest pain Disease Active 2020- U 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 4-15 it y of 00:00: [place] [facility] 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 00:00: [place] and and 00 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 2018-11 U nivers lobe lobe 1-06 ity of pneumonia pneumonia 00:00: [facility] s 00 Medical Branch PNA PNA Disease Active 2018-11 Univers (pneumonia (pneumonia 0-25 it y of ) ) 00:00: [place] 00 Medical Branch Acute on Acute on Disease Active 2018-11 Unive rs chronic chronic 0-25 ity of combined combined 00:00: [place] systolic systolic 00 Medica l and and Branch 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 Dyspnea Dyspnea Disease Active 2018-11 Univers 0-23 ity of 00:00: [place] 00 Medical Branch CHF CHF Disease Active 2019 Univers exacerbati exacerbati 2-17 it y of on on 00:00: [place] 00 Medical Branch Essential Essential Disease Active Uni vers hypertensi hypertensi 2-17 it y of on on 00:00: [place] 00 Medical Branch Type 2 Type 2 [...] 00:00: [place] involving involving 00 Medi birdie jamul jamul 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 00:00: [place] disease disease 00 Medical Branch Coronary Coronary Disease Active Unive rs artery artery 1-27 ity of disease disease 00:00: [place] involving involving 00 Medi birdie jamul jamul Branch 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 [...] Allergie 1-23 Clear s 00:00: [facility] NO KNOWN Drug Active Univers ALLERGIE Class ity of S [facility] Social History Social Habit Start Date Stop Date Quantity Comments Source Exposure to Unable to assess Univers ity of SARS-CoV-2 (event) [facility] History of tobacco User of Univer sity of use smokeless [facility] tobacco [place] Alcohol intake 2022-03-01 2022-03-01 Current University of 00:00:00 00:00:00 non-drinker of [facility] [facility] alcohol Branch (finding) Cigarettes smoked 2018-12-11 2018-12-11 Univers ity of current (pack per 00:00:00 00:00:00 [facility] ) - Reported Branch Cigarette 2018-12-11 2018-12-11 University of pack-years 00:00:00 00:00:00 [facility] Tobacco use and 2018-12-11 2018-12-11 Former user Universi ty of exposure 00:00:00 00:00:00 [facility] Sex Assigned At [birth year] Universit y of 00:00:00 00:00:00 [facility] Smoking Status Start Date Stop Date Source Former smoker 2018-12-11 00:00:00 2018-12-11 00:00:00 Universi ty [facility] Medications Ordered Filled Start Stop Current Ordering Indication Dosage Frequency Signature Comments Components Source Medication Medication Date Date Medication? Clinician (SIG) Name Name FENTanyl PF No 25ug 25 mcg, Un mel (SUBLIMAZE 03-01 Intramuscu it y of (PF)) 16:45: 16:23 lar, ONCE, [place] injection 00 :00 1 dose, On Medi birdie 25 mcg [facility] 03/01/22 at 1145, Routine cyclobenzap No 10mg 10 mg, Uni vers rine 03-01 Oral, ity of (FLEXERIL) 14:00: 12:59 ONCE, 1 [place] as tablet 10 00 :00 dose, On Medica l mg [facility] 03/01/22 at 0900, Routine HYDROcodone 2021- No [...] 03/01/22 at 0900, 1 mL cyclobenzap Yes [id number] 10mg Take 1 Univers rine 10 mg 16 tablet by ity of tablet 00:00: mouth 3 [place] 00 (three) Medical times [place] daily as needed for Muscle Spasms. aspirin 81 2020-11- No [id number] 81mg Take 1 Univers mg chewable 2-19 12-04 tablet by it y of tablet 00:00: 05:59 mouth [place] 00 :00 daily for Medical 30 days. [place] clopidogreL 2020-11- No [id number] 75mg Take 1 Univers 75 mg 2-19 - tablet by ity of tablet 00:00: 05:59 mouth [place] 00 :00 daily for Medical 30 days. Branch furosemide 2020-11- No [id number] 20mg Take 1 Univers 20 mg 2-04 12- tablet by ity of tablet 00:00: 05:59 mouth [place] 00 :00 daily for Medical 30 days. [place] aspirin 81 2020-11- No [id number] 81mg Take 1 Univers mg chewable 2-12-04 tablet by it y of tablet 00:00: 05:59 mouth [place] 00 :00 daily for Medical 30 days. Branch clopidogreL 2020-11- No [id number] 75mg Take 1 Univers 75 mg 2-19 - tablet by ity of tablet 00:00: 05:59 mouth [place] 00 :00 daily for Medical 30 days. Branch furosemide 2020-11- No [id number] 20mg Take 1 Univers 20 mg 2-19 - tablet by ity of tablet 00:00: 05:59 mouth [place] 00 :00 daily for Medical 30 days. [place] aspirin 81 2020-11- No [id number] 81mg Take 1 Univers mg chewable 2-19 - tablet by it y of tablet 00:00: 05:59 mouth [place] 00 :00 daily for Medical 30 days. Branch clopidogreL 2020-11- No [id number] 75mg Take 1 Univers 75 mg 01-04 tablet by ity of tablet 00:00: 05:59 mouth [place] 00 :00 daily for Medical 30 days. Branch furosemide 2020-11- No [id number] 20mg Take 1 Univers 20 mg 01-04 [...] 2-18 by mouth ity of 18:25: at [place] 21 bedtime. Medical Branch atorvastati 2020-11 Yes 40mg Take 40 mg Univers n 40 mg 2-18 by mouth ity of tablet 18:25: at [place] 21 bedtime. Medical Branch trazodone 2020-11 Yes [...] Until Discontinu ed, Routine QUEtiapine 2020-11 Yes [id number] 25mg Take 1 Univers 25 mg 2-18 tablet by ity of tablet 00:00: mouth at [place] [address] bedtime as Medical needed Branch (agitation /insomnia) . QUEtiapine 2020-11 Yes [id number] 25mg Take 1 Univers 25 mg 2-18 tablet by ity of tablet 00:00: mouth at [place] [address] bedtime as Medical needed Branch (agitation /insomnia) . QUEtiapine 2020-11 Yes [id number] 25mg Take 1 Univers 25 mg 2-18 tablet by ity of tablet 00:00: mouth at [place] [address] bedtime as Medical needed Branch (agitation /insomnia) . QUEtiapine 2020-11 Yes [id number] 25mg Take 1 Univers 25 mg 2-18 tablet by ity of tablet 00:00: mouth at [place] [address] bedtime as Medical needed Branch (agitation /insomnia) . isosorbide 2020-11 No [id number] 60mg Take 1 Univers mononitrate 2-18 01-18 tablet by it y of 60 mg 24 hr 00:00: 05:59 mouth 2 [place] tablet 00 :00 (two) Medical times Branch daily for 30 days. metoprolol 2020-11- No [id number] 37.5mg Take 1.5 Univers succinate 2-18 -18 tablets by ity of XL 25 mg 24 00:00: 05:59 mouth 2 [place] hr tablet 00 :00 (two) Medical times Branch daily for 30 days. isosorbide 2020-11- No [id number] 60mg Take 1 Univers mononitrate 2-18 -18 tablet by it y of 60 mg 24 hr 00:00: 05:59 mouth 2 [place] tablet 00 :00 (two) Medical times Branch daily for 30 days. metoprolol 2020-11- No [id number] 37.5mg Take 1.5 Univers succinate 2-18 -18 tablets by ity of XL 25 mg 24 00:00: 05:59 mouth 2 [place] hr tablet 00 :00 (two) Medical times Branch daily for 30 days. isosorbide 2020-11- No [id number] 60mg Take 1 Univers mononitrate 2-18 -18 tablet by it y of 60 mg 24 hr 00:00: 05:59 mouth 2 [place] tablet 00 :00 (two) Medical times Branch daily for 30 days. metoprolol 2020-11- No [id number] 37.5mg Take 1.5 Univers succinate 2-18 -18 [...] mg 03:00: First dose [place] 00 on [facility] Medical 10/31/21 Branch at 2100, Until Discontinu ed, Routine atorvastati 2020-11 Yes 40mg 40 mg, Univ ers n (LIPITOR) 2-17 Oral, QHS, it y of tablet 40 03:00: First dose [place] mg 00 on [facility] Medical 10/31/21 Branch at 2100, Until Discontinu ed, Routine clopidogreL 2020-11 Yes 75mg 75 mg, Univ ers (PLAVIX) 2-16 Oral, ity of tablet 75 23:30: DAILY, [place] mg 00 First dose Medical on [facility] Branch 10/31/21 at 1730, Until Discontinu ed, Routine sulfur 2020-11- No [id number] 5mL 5 mL, Unive rs hexafluorid 01-01 Intravenou i ty of e microsphr 17:00: 17:00 s, ONCE, 1 [place] (LUMASON) 00 :00 dose, On Medica l injection 5 Madhavi Branch mL 10/31/21 at 1100, Routine
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 Restricted medication : MEGGAN CAMARA [...] = 1 mg/kg Medical ?78 kg), Branch [facility], Q24H, First dose on Madhavi 10/31/21 at 0300, Until Discontinu ed, Routine aspirin 2020-11- No 325mg 325 mg, Unive rs tablet 325 -10-31 Oral, ity of mg 08:45: 08:15 ONCE, 1 [place] 00 :00 dose, On Medical Madhavi Branch 10/31/21 at 0245, Routine glucagon 2020-11 Yes 1mg 1 mg, Univers (GLUCAGEN 2-16 Intramuscu ity of DIAGNOSTIC 08:16: lar, PRN, [place] KIT) 15 Starting Medical injection 1 on [facility] Branch mg 10/31/21 at 0216, Until Discontinu ed, ADAMA, Blood Glucose < or = 70 mg/dL and patient is unable to swallow or has mental changes. dextrose 50 2020-11 Yes 25mL 25 mL, Univ ers % in water 2-16 Slow IV ity of (D50W) 08:16: Push, PRN, [place] injection 14 Starting Medica l 25 mL on [facility] Branch 10/31/21 at 0216, Until Discontinu ed, ADAMA, Blood Glucose < or = 70 mg/dL and patient is unable to swallow or has mental status changes. morpHINE 2020-11- No 2mg 2 mg, Slow Un mel injection 2 01-0117 IV Push, ity of mg 07:36: 05:31 Q4HPRN, [place] 09 :07 Starting Medical on [facility] Branch 10/31/21 at 0136, Until Madhavi 10/31/21 [...] IV Push, ity of (PF)) 05:32: Q6HPRN, [place] injection 4 10 Starting Medi birdie mg on Wed Branch 10/30/21 at 2332, Until Discontinu ed, Routine, Nausea and Vomiting (N/V) acetaminoph 2020-11 Yes 650mg 650 mg, Un mel en 2-16 Oral, ity of (TYLENOL) 05:31: Q6HPRN, [place] tablet 650 56 Starting Medic al mg on Thu Branch 10/30/21 at 2331, Until Discontinu ed, Routine, Pain (scale 1-3) acetaminoph 2020-11 Yes [id number] 1{tbl} 1 tablet, Univers en-codeine 2-16 Oral, ity of (TYLENOL 05:29: Q6HPRN, [place] #3) 300-30 29 Starting Medic al mg tablet 1 on Thu Branch tablet 10/30/21 at 2329, Until Discontinu ed, Routine, Pain (scale 4-6), Pain (scale 7-10) sodium 2020-11 Yes 5mL 5 mL, Univers chloride 2-16 Intravenou ity o f (NS) 01:21: s, PRN, [place] injection 5 02 Starting Medi birdie mL on Thu Branch 10/30/21 at 1921, Until Discontinu ed, Routine, IV line flushing morpHINE 2020- No 4mg 4 mg, Slow Un mel injection 4 6-10 06-10 IV Push, ity of mg 23:15: 22:23 ONCE, 1 [place] 00 :00 dose, Madhavi Medical 04/25/21 at Branch 1815, STAT acetaminoph 2020-2020- No 1{tbl} 1 tablet, Univers en-codeine 6-10 06-10 Oral, ity of (TYLENOL 19:00: 17:52 ONCE, 1 [place] #3) 300-30 00 :00 dose, [place] Medi birdie mg tablet 1 04/25/21 at Br anch tablet 1400, ADAMA cyclobenzap 2020- No 10mg 10 mg, Uni vers rine 6-10 06-10 Oral, ONCE ity of (FLEXERIL) 19:00: 17:52 NOW, 1 [place] tablet 10 00 :00 dose, Madhavi Medic al mg 04/25/21 at Branch 1400, ADAMA cyclobenzap 2020-0 Yes [id number] 5mg Take 1 Univers rine 5 mg 6-10 tablet by ity o f tablet 00:00: mouth 3 [place] 00 (three) Medical times Branch daily. cyclobenzap 2020-0 Yes [id number] 5mg Take 1 Univers rine 5 mg 6-10 tablet by ity o f tablet 00:00: mouth 3 [place] 00 (three) Medical times Branch daily. cyclobenzap 2020-0 Yes [id number] 5mg Take 1 Univers rine 5 mg [...] sided low back pain cyclobenzap 2020-0 Yes [id number] 5mg Take 1 Univers rine 5 mg [...] sided low back pain cyclobenzap 2020-0 Yes [id number] 5mg Take 1 Univers rine 5 mg 6-10 tablet by ity o f tablet 00:00: mouth 3 [place] 00 (three) Medical times Branch daily. cyclobenzap 2020-0 2021- No [id number] 5mg Take 1 Univers rine 5 mg 6-10 04-16 tablet by ity of tablet 00:00: 00:00 mouth 3 [place] 00 :00 (three) Medical times Branch daily. acetaminoph 2020-0 2021- No [id number] 1{tbl} Take 1 U nivers [...] First dose Medical injection on [facility] Branch 30 Units 03/24/20 at 0900, Until Discontinu ed clopidogreL 2020-0 Yes 75mg 75 mg, Univ ers (PLAVIX) 03-24 Oral, ity of tablet 75 14:00: DAILY, [place] mg 00 First dose Medical on [facility] 03/24/20 at 0900, Until Discontinu ed, Routine insulin 2020-0 Yes 30U 30 Units, Unive rs glargine 03-24 Subcutaneo ity o f (LANTUS 14:00: us, DAILY, [place] U-100) 00 First dose Medical injection on [facility] Branch 30 Units 03/24/20 at 0900, Until Discontinu ed clopidogreL 2020-0 Yes 75mg 75 mg, Univ ers (PLAVIX) 03-24 Oral, ity of tablet 75 14:00: DAILY, [place] mg 00 First dose Medical on [facility] 03/24/20 at 0900, Until Discontinu ed, [...] dose [place] mg 00 on [facility] Medical 03/23/20 at Branch 2100, Until Discontinu ed, Routine atorvastati 2020-0 Yes 40mg 40 mg, Univ ers n (LIPITOR) 5-09 Oral, QHS, it y of tablet 40 02:00: First dose [place] mg 00 on Thu Medical 03/23/20 at Branch 2100, Until Discontinu ed, Routine aspirin 81 2020-0 Yes [id number] 81mg Take 1 U nivers mg chewable 5-09 tablet by ity of tablet 00:00: mouth [place] 00 daily with Medical breakfast. [place] furosemide 2020-0 Yes [id number] 20mg Take 1 U nivers 20 mg 5-09 tablet by ity of tablet 00:00: mouth [place] 00 daily. [facility] aspirin 81 2020-0 Yes [id number] 81mg Take 1 U nivers mg chewable 5-09 tablet by ity of tablet 00:00: mouth [place] 00 daily with Medical breakfast. [place] furosemide 2020-0 Yes [id number] 20mg Take 1 U nivers 20 mg 5-09 tablet by ity of tablet 00:00: mouth [place] 00 daily. [facility] aspirin 81 2020-0 Yes [id number] 81mg Take 1 U nivers mg chewable 5-09 tablet by ity of tablet 00:00: mouth [place] 00 daily with Medical breakfast. [place] furosemide 2020-0 Yes [id number] 20mg Take 1 U nivers 20 mg 5-09 tablet by ity of tablet 00:00: mouth [place] 00 daily. [facility] aspirin 81 2020-0 Yes [id number] 81mg Take 1 U nivers mg chewable 5-09 tablet by ity of tablet 00:00: mouth [place] 00 daily with Medical breakfast. [place] furosemide 2020-0 Yes [id number] 20mg Take 1 U nivers 20 mg 5-09 tablet by ity of tablet 00:00: mouth [place] 00 daily. [facility] aspirin 81 2020-0 Yes [id number] 81mg Take 1 U nivers mg chewable 5-09 tablet by ity of tablet 00:00: mouth [place] 00 daily with Medical breakfast. [place] furosemide 2020-0 Yes [id number] 20mg Take 1 U nivers 20 mg 5-09 tablet by ity of tablet 00:00: mouth [place] 00 daily. [facility] aspirin 81 2020-0 Yes [id number] 81mg Take 1 U nivers mg chewable 5-09 tablet by ity of tablet 00:00: mouth [place] 00 daily with Medical breakfast. [place] furosemide 2020-0 Yes [id number] 20mg Take 1 U nivers 20 mg 5-09 tablet by ity of tablet 00:00: mouth [place] 00 daily. Medical Branch aspirin 81 2020-0 Yes [id number] 81mg Take 1 U nivers mg chewable 5-09 tablet by ity of tablet 00:00: mouth [place] 00 daily with Medical breakfast. Branch furosemide 2020-0 Yes [id number] 20mg Take 1 U nivers 20 mg 5-09 tablet by ity of tablet 00:00: mouth [place] 00 daily. Medical Branch aspirin 81 2020-0 Yes [id number] 81mg Take 1 U nivers mg chewable 5-09 tablet by ity of tablet 00:00: mouth [place] 00 daily with Medical breakfast. Branch furosemide 2020-0 Yes [id number] 20mg Take 1 U nivers 20 mg 5-09 tablet by ity of tablet 00:00: mouth [place] 00 daily. Medical Branch aspirin 81 2020-0 Yes [id number] 81mg Take 1 U nivers mg chewable 5-09 tablet by ity of tablet 00:00: mouth [place] 00 daily with Medical breakfast. Branch furosemide 2020-0 Yes [id number] 20mg Take 1 U nivers 20 mg 5-09 tablet by ity of tablet 00:00: mouth [place] 00 daily. Medical Branch aspirin 81 2020-0 2021- No [id number] 81mg Take 1 Univers mg chewable 5-09 12-18 tablet by it y of tablet 00:00: 00:00 mouth [place] 00 :00 daily with Medical breakfast. Branch furosemide 2020-0 2021- No [id number] 20mg Take 1 Univers 20 mg 5-09 12-18 tablet by ity of tablet 00:00: 00:00 mouth [place] 00 :00 daily. Medical Branch isosorbide 2020-0 2020- No [id number] 90mg Take 3 Univers mononitrate 5-09 05-08 tablets by i ty of 30 mg 24 hr 00:00: 00:00 mouth [place] tablet 00 :00 daily. Medical Branch isosorbide 2020-0 2020- No [id number] 90mg Take 3 Univers mononitrate 5-09 05-08 tablets by i ty of 30 mg 24 hr 00:00: 00:00 mouth [place] tablet 00 :00 daily. Medical Branch maalox/lido 2020-0 2020- No 5mL 5 mL, Univ ers sydni 2 5-08 05-08 Oral, ity of %viscous 20:45: 20:56 ONCE, 1 [place] 1:1 00 :00 dose, Fri Medical suspension 03/23/20 at [facility] (COMPOUNDED 1545, ) Routine maalox/lido 2020-0 2020- No 5mL 5 mL, Univ ers sydni 2 03-23-08 Oral, ity of %viscous 20:45: 20:56 ONCE, 1 [place] 1:1 00 :00 dose, Fri Medical suspension 03/23/20 at [facility] (COMPOUNDED 1545, ) Routine acetaminoph 2020-0 [...] :00 dose, Fri Medical (DEFINITY) 03/23/20 at [facility] injection 2 1030, mL Routine perflutren [...] Yes 25mg 25 mg, Unive rs succinate -08 Oral, BID, ity of XL (TOPROL 13:00: [...] IV Push, ity of mg 07:59: Q4HPRN, [place] 14 Starting Medical [facility] 03/23/20 [place] at 0259, Until Discontinu ed, Routine, Chest pain magnesium 2020-0 2020- No 2g 2 g, IV Univ ers sulfate in 03-23 Piggyback, it y of water 2 07:45: 07:49 ONCE, 1 [place] gram/50 mL 00 :00 dose, Fri Medi birdie (4 %) 03/23/20 at [place] infusion 2 0245, g Routine KCL 2020-0 2020- No 40meq 40 mEq, Univers (KLOR-CON 03-23 Oral, ity of M20) tablet 07:45: 07:27 ONCE, 1 [place] 40 mEq 00 :00 dose, Fri Medical 03/23/20 at [place] 0245, Routine magnesium 2020-0 2020- No 2g [...] 00 :00 dose, Fri Medical 03/23/20 at [place] 0245, Routine heparin 2020-0 Yes 12U/kg/ 12 [...] :00 ONCE, 1 Medical Soln 4,000 dose, Madhaiv Bran ch Units 03/22/20 at 2315, Routine [...] (refer to continuous heparin drip order).
memantine-d 2020- No 1{capsu Take 1 Univers onepezil [...] 2020- No Take by U ulises benedictol, 03-23 mouth. ity of Vitamin D3, [...] Medic al mg Madhavi 03/22/20 Branch at 2150, Until Discontinu ed, Routine, Pain (scale 1-3) [...] Medical tablet 0.4 doses, Branch mg Starting [facility] 03/22/20 at 2138, Until Discontinu ed, ADAMA, Chest pain nitroglycer 2020-0 Yes .4mg 0.4 mg, Uni vers in 03-23 Sublingual ity of (NITROSTAT) 02:38: , Q5MIN [place] as sublingual 00 PRN, 3 Medical tablet 0.4 doses, Branch mg Starting [facility] 03/22/20 at 2138, Until Discontinu ed, ADAMA, Chest pain aspirin 2020-0 2020- No 324mg 324 mg, Unive rs chewable 5- 05-08 Oral, ity of tablet 324 02:37: 02:51 ONCE, 1 [place] as mg 00 :00 dose, [facility] 03/22/20 at Branch 2145, ADAMA aspirin 2020-0 2020- No 324mg 324 mg, Unive rs chewable 03-23 05-08 Oral, ity of tablet 324 02:37: 02:51 ONCE, 1 [place] as mg 00 :00 dose, [facility] 03/22/20 at Branch 2145, ADAMA isosorbide 2020-0 Yes [id number] 90mg Take 1.5 Univers mononitrate 5-08 tablets by it y of 60 mg 24 hr 00:00: mouth [place] tablet 00 daily. [facility] isosorbide 2020-0 Yes [id number] 90mg Take 1.5 Univers mononitrate 5-08 tablets by it y of 60 mg 24 hr 00:00: mouth [place] tablet 00 daily. [facility] isosorbide 2020-0 Yes [id number] 90mg Take 1.5 Univers mononitrate 5-08 tablets by it y of 60 mg 24 hr 00:00: mouth [place] tablet 00 daily. [facility] isosorbide 2020-0 Yes [id number] 90mg Take 1.5 Univers mononitrate 5-08 tablets by it y of 60 mg 24 hr 00:00: mouth [place] tablet 00 daily. [facility] isosorbide 2020-0 Yes [id number] 90mg Take 1.5 Univers mononitrate 5-08 tablets by it y of 60 mg 24 hr 00:00: mouth [place] tablet 00 daily. Medical Branch isosorbide 2020-0 Yes [id number] 90mg Take 1.5 Univers mononitrate 5-08 tablets by it y of 60 mg 24 hr 00:00: mouth [place] tablet 00 daily. Medical Branch isosorbide 2020-0 Yes [id number] 90mg Take 1.5 Univers mononitrate 5-08 tablets by it y of 60 mg 24 hr 00:00: mouth [place] tablet 00 daily. Medical Branch isosorbide 2020-0 Yes [id number] 90mg Take 1.5 Univers mononitrate 5-08 tablets by it y of 60 mg 24 hr 00:00: mouth [place] tablet 00 daily. Medical Branch isosorbide 2020-0 Yes [id number] 90mg Take 1.5 Univers mononitrate 5-08 tablets by it y of 60 mg 24 hr 00:00: mouth [place] tablet 00 daily. Medical Branch isosorbide 2020-0 2021- No [id number] 90mg Take 1.5 Univers mononitrate 5-08 12-18 tablets by i ty of 60 mg 24 hr 00:00: 00:00 mouth [place] tablet 00 :00 daily. Medical Branch acetaminoph 2020-0 2020- No [id number] 975mg Take 3 Univers en 325 mg 5-08 05-19 tablets by ity of tablet 00:00: 04:59 mouth [place] 00 :00 every 8 Medical (eight) Branch hours for 10 days. acetaminoph 2020-0 2020- No [id number] 975mg Take 3 Univers en 325 mg 5-08 05-19 tablets by ity of tablet 00:00: 04:59 mouth [place] 00 :00 every 8 Medical (eight) Branch hours for 10 days. acetaminoph 2020-0 2020- No [id number] 975mg Take 3 Univers en 325 mg 5-08 05-19 tablets by ity of tablet 00:00: 04:59 mouth [place] 00 :00 every 8 Medical (eight) Branch hours for 10 days. acetaminoph 2020-0 2020- No [id number] 975mg Take 3 Univers en 325 mg 5-08 05-19 tablets by ity of tablet 00:00: 04:59 mouth [place] 00 :00 every 8 Medical (eight) Branch hours for 10 days. acetaminoph 2020-0 2020- No [id number] 975mg Take 3 Univers en 325 mg 5-08 05-19 tablets by ity of tablet 00:00: 04:59 mouth [place] 00 :00 every 8 Medical (eight) Branch hours for 10 days. lidocaine 5 2019- 2020- No [id number] 1{patch Apply 1 Univers % (700 5-08 05-09 } Patch to ity of mg/patch) 00:00: 04:59 area(s) [place] patch 00 :00 once now Medical for 1 Branch dose. lidocaine 5 2020- No [id number] 1{patch Apply 1 Univers % (700 5-08 05-09 } Patch to ity of mg/patch) 00:00: 04:59 area(s) [place] patch 00 :00 once now Medical for 1 Branch dose. lidocaine 5 2019- 2020- No [id number] 1{patch Apply 1 Univers % (700 5-08 05-08 } Patch to ity of mg/patch) 00:00: 00:00 area(s) [place] patch 00 :00 once now Medical for 1 Branch dose. lidocaine 5 2019- No [id number] 1{patch Apply 1 Univers % (700 5-08 05-08 } Patch to ity of mg/patch) 00:00: 00:00 area(s) [place] patch 00 :00 once now Medical for 1 Branch dose. glipiZIDE 2020-0 Yes 5mg 5 mg, Univers (GLUCOTROL) 4-23 Oral, ity of tablet 5 mg 14:00: DAILY, [place] 00 First dose Medical on [facility] Branch 03/08/20 at 0900, Until Discontinu ed, Routine spironolact 2019-0 2020- No [id number] 12.5mg Take 0.5 Univers one 25 mg 4-23 05-24 tablets by ity of tablet 00:00: 04:59 mouth [place] 00 :00 daily for Medical 30 days. Branch spironolact 2020-0 2020- No [id number] 12.5mg Take 0.5 Univers one 25 mg 4-23 05-24 tablets by ity of tablet 00:00: 04:59 mouth [place] 00 :00 daily for Medical 30 days. Branch spironolact 2020-0 2020- No [id number] 12.5mg Take 0.5 Univers one 25 mg 4-23 05-24 tablets by ity of tablet 00:00: 04:59 mouth [place] 00 :00 daily for Medical 30 days. Branch spironolact 2020-0 2020- No [id number] 12.5mg Take 0.5 Univers one 25 mg 4-23 05-07 tablets by ity of tablet 00:00: 00:00 mouth [place] 00 :00 daily for Medical 30 days. Branch spironolact 2020-0 2020- No [id number] 12.5mg Take 0.5 Univers one 25 mg 4-23 05-07 tablets by ity of tablet 00:00: 00:00 mouth [place] 00 :00 daily for Medical 30 days. Branch folic 2020-0 Yes Take by Univers [...] 28-10 mg 10 daily. Medical CSpX Branch metoprolol 2020-0 2020- No 12.5mg Take [...] mouth ity of tablet 20:15: 00:00 at [place] 29 :00 bedtime. Medical Branch temazepam 2020-0 Yes 15mg 15 mg, Univer s (RESTORIL) 4-22 Oral, ity of capsule 15 01:55: QHSPRN, [place] mg 38 Starting Medical Tue Branch 03/06/20 at 2055, Until Discontinu ed, Routine, Insomnia Insulin 2020-0 Yes [id number] 10U inject 10 [facility] Glargine 4-22 Units ity of 100 unit/mL 00:00: under the [place] (3 mL) 00 skin at Medical injection bedtime. Branch temazepam 2020-0 Yes [id number] 15mg Take 1 Un mel 15 mg 4-22 capsule by ity of capsule 00:00: mouth at [place] 00 bedtime as Medical needed for Branch Insomnia. furosemide 2020-0 Yes [id number] 40mg Take 1 [facility] 40 mg 4-22 tablet by ity of tablet 00:00: mouth [place] 00 every Medical morning Branch and evening. Magnesium 2020-0 Yes [id number] 400mg Take 400 [facility] Oxide 420 4-22 mg by ity of mg Tab 00:00: mouth [place] 00 daily. Medical Branch potassium 2020-0 Yes [id number] 20meq Take 20 [facility] chloride 20 4-22 mEq by ity of mEq packet 00:00: mouth [place] 00 daily. Medical Take with Branch lasix in the morning isosorbide 2020-0 Yes [id number] 15mg Take 0.5 [facility] mononitrate 4-22 tablets by it y of 30 mg 24 hr 00:00: mouth [place] tablet 00 daily. Medical Hold if Branch systolic blood pressure less than 120 Insulin 2020-0 Yes [id number] 10U inject 10 [facility] Glargine 4-22 Units ity of 100 unit/mL 00:00: under the [place] (3 mL) 00 skin at Medical injection bedtime. Branch temazepam 2020-0 Yes [id number] 15mg Take 1 Un mel 15 mg 4-22 capsule by ity of capsule 00:00: mouth at [place] 00 bedtime as Medical needed for Branch Insomnia. furosemide 2020-0 Yes [id number] 40mg Take 1 [facility] 40 mg 4-22 tablet by ity of tablet 00:00: mouth [place] 00 every Medical morning Branch and evening. Magnesium 2020-0 Yes [id number] 400mg Take 400 [facility] Oxide 420 4-22 mg by ity of mg Tab 00:00: mouth [place] 00 daily. Medical Branch potassium 2020-0 Yes [id number] 20meq Take 20 [facility] chloride 20 4-22 mEq by ity of mEq packet 00:00: mouth [place] 00 daily. Medical Take with Branch lasix in the morning isosorbide 2020-0 Yes [id number] 15mg Take 0.5 [facility] mononitrate 4-22 tablets by it y of 30 mg 24 hr 00:00: mouth [place] tablet 00 daily. Medical Hold if Branch systolic blood pressure less than 120 Insulin 2020-0 Yes [id number] 10U inject 10 [facility] Glargine 4-22 Units ity of 100 unit/mL 00:00: under the [place] (3 mL) 00 skin at Medical injection bedtime. Branch temazepam 2020-0 Yes [id number] 15mg Take 1 Un mel 15 mg 4-22 capsule by ity of capsule 00:00: mouth at [place] 00 bedtime as Medical needed for Branch Insomnia. furosemide 2020-0 Yes [id number] 40mg Take 1 [facility] 40 mg 4-22 tablet by ity of tablet 00:00: mouth [place] 00 every Medical morning Branch and evening. Magnesium 2020-0 Yes [id number] 400mg Take 400 [facility] Oxide 420 4-22 mg by ity of mg Tab 00:00: mouth [place] 00 daily. Medical Branch potassium 2020-0 Yes [id number] 20meq Take 20 [facility] chloride 20 4-22 mEq by ity of mEq packet 00:00: mouth [place] 00 daily. Medical Take with Branch lasix in the morning isosorbide 2020-0 Yes [id number] 15mg Take 0.5 [facility] mononitrate 4-22 tablets by it y of 30 mg 24 hr 00:00: mouth [place] tablet 00 daily. Medical Hold if Branch systolic blood pressure less than 120 Insulin 2020-0 Yes [id number] 10U inject 10 [facility] Glargine 4-22 Units ity of 100 unit/mL 00:00: under the [place] (3 mL) 00 skin at Medical injection bedtime. Branch Magnesium 2020-0 Yes [id number] 400mg Take 400 [facility] Oxide 420 4-22 mg by ity of mg Tab 00:00: mouth [place] 00 daily. Medical Branch vitamin 2019-0 2020- No [id number] 1000ug Take 1 [facility] B-12 1,000 4-22 07-22 tablet by ity of mcg tablet 00:00: 04:59 mouth [place] 00 :00 daily for Medical 90 days. Branch vitamin 2019-0 2020- No [id number] 1000ug Take 1 [facility] B-12 1,000 4-22 07-22 tablet by ity of mcg tablet 00:00: 04:59 mouth [place] 00 :00 daily for Medical 90 days. Branch vitamin 2020-0 2020- No [id number] 1000ug Take 1 [facility] B-12 1,000 4-22 07-22 tablet by ity of mcg tablet 00:00: 04:59 mouth [place] 00 :00 daily for Medical 90 days. Branch vitamin 2019-0 2020- No [id number] 1000ug Take 1 [facility] B-12 1,000 4-22 07-22 tablet by ity of mcg tablet 00:00: 04:59 mouth [place] 00 :00 daily for Medical 90 days. Branch glipiZIDE 5 2019- 2020- No [id number] 2.5mg Take 0.5 [facility] mg tablet 03-07-23 tablets by ity of 00:00: 04:59 mouth 2 [place] 00 :00 (two) Medical times Branch daily before breakfast and dinner for 30 days. metoprolol 2019-0 2020- No [id number] 25mg Take 1 [facility] succinate 03-07-23 tablet by ity of XL 25 mg 24 00:00: 04:59 mouth 2 [place] hr tablet 00 :00 (two) Medical times Branch daily for 30 days. OLANZapine 2019-0 2020- No [id number] 2.5mg Take 1 [facility] 2.5 mg -06 04-23 tablet by ity of tablet 00:00: 04:59 mouth at [place] 00 :00 bedtime Medical for 30 Branch days. ranolazine 2019-0 2020- No [id number] 1000mg Take 2 [facility] 500 mg 12 03-07-23 tablets by ity of hr tablet 00:00: 04:59 mouth [place] 00 :00 every 12 Medical (twelve) Branch hours for 30 days. aspirin 81 2019-0 2020- No [id number] 81mg Take 1 [facility] mg chewable 4-22 05-23 tablet by it y of tablet 00:00: 04:59 mouth [place] 00 :00 daily with Medical breakfast Branch for 30 days. atorvastati 2019-0 2020- No [id number] 40mg Take 1 [facility] n 40 mg 4-22 05-23 tablet by ity of tablet 00:00: 04:59 mouth at [place] 00 :00 bedtime Medical for 30 Branch days. glipiZIDE 5 2019- 2020- No [id number] 2.5mg Take 0.5 [facility] mg tablet 4-22 05-23 tablets by ity of 00:00: 04:59 mouth 2 [place] 00 :00 (two) Medical times Branch daily before breakfast and dinner for 30 days. metoprolol 2019-0 2020- No [id number] 25mg Take 1 [facility] succinate 4-22 05-23 tablet by ity of XL 25 mg 24 00:00: 04:59 mouth 2 [place] hr tablet 00 :00 (two) Medical times Branch daily for 30 days. OLANZapine 2020-0 2020- No [id number] 2.5mg Take 1 [facility] 2.5 mg 4-22 05-23 tablet by ity of tablet 00:00: 04:59 mouth at [place] 00 :00 bedtime Medical for 30 Branch days. ranolazine 2019-0 2020- No [id number] 1000mg Take 2 [facility] 500 mg 12 4-22 05-23 tablets by ity of hr tablet 00:00: 04:59 mouth [place] 00 :00 every 12 Medical (twelve) Branch hours for 30 days. aspirin 81 2019-0 2020- No [id number] 81mg Take 1 [facility] mg chewable 4-22 05-23 tablet by it y of tablet 00:00: 04:59 mouth [place] 00 :00 daily with Medical breakfast Branch for 30 days. atorvastati 2020-0 2020- No [id number] 40mg Take 1 [facility] n 40 mg 4-22 05-23 tablet by ity of tablet 00:00: 04:59 mouth at [place] 00 :00 bedtime Medical for 30 Branch days. glipiZIDE 5 2020-0 2020- No [id number] 2.5mg Take 0.5 [facility] mg tablet 4-22 05-23 tablets by ity of 00:00: 04:59 mouth 2 [place] 00 :00 (two) Medical times Branch daily before breakfast and dinner for 30 days. metoprolol 2020-0 2020- No [id number] 25mg Take 1 [facility] succinate 4-22 05-23 tablet by ity of XL 25 mg 24 00:00: 04:59 mouth 2 [place] hr tablet 00 :00 (two) Medical times Branch daily for 30 days. OLANZapine 2020-0 2020- No [id number] 2.5mg Take 1 [facility] 2.5 mg 4-22 05-23 tablet by ity of tablet 00:00: 04:59 mouth at [place] 00 :00 bedtime Medical for 30 Branch days. ranolazine 2020-0 2020- No [id number] 1000mg Take 2 [facility] 500 mg 12 4-22 05-23 tablets by ity of hr tablet 00:00: 04:59 mouth [place] 00 :00 every 12 Medical (twelve) Branch hours for 30 days. aspirin 81 2019-0 2020- No [id number] 81mg Take 1 [facility] mg chewable 4-22 05-23 tablet by it y of tablet 00:00: 04:59 mouth [place] 00 :00 daily with Medical breakfast Branch for 30 days. atorvastati 2019-0 2020- No [id number] 40mg Take 1 [facility] n 40 mg 4-22 05-23 tablet by ity of tablet 00:00: 04:59 mouth at [place] 00 :00 bedtime Medical for 30 Branch days. glipiZIDE 5 2019- 2020- No [id number] 2.5mg Take 0.5 [facility] mg tablet - 05-23 tablets by ity of 00:00: 04:59 mouth 2 [place] 00 :00 (two) Medical times Branch daily before breakfast and dinner for 30 days. metoprolol 2019-0 2020- No [id number] 25mg Take 1 [facility] succinate 4-22 05-23 tablet by ity of XL 25 mg 24 00:00: 04:59 mouth 2 [place] hr tablet 00 :00 (two) Medical times Branch daily for 30 days. ranolazine 2020-0 2020- No [id number] 1000mg Take 2 [facility] 500 mg 12 4-22 05-23 tablets by ity of hr tablet 00:00: 04:59 mouth [place] 00 :00 every 12 Medical (twelve) Branch hours for 30 days. atorvastati 2020-0 2020- No [id number] 40mg Take 1 [facility] n 40 mg 4-22 05- tablet by ity of tablet 00:00: 04:59 mouth at [place] 00 :00 bedtime Medical for 30 Branch days. furosemide 2020- No [id number] 40mg Take 1 [facility] 40 mg 03-07-08 tablet by ity of tablet 00:00: 00:00 mouth [place] 00 :00 every Medical morning Branch and evening. aspirin 81 2020- No [id number] 81mg Take 1 [facility] mg chewable 03-07-08 tablet by it y of tablet 00:00: 00:00 mouth [place] 00 :00 daily with Medical breakfast Branch for 30 days. isosorbide 2019- No [id number] 15mg Take 0.5 [facility] mononitrate 03-07-08 tablets by i ty of 30 mg 24 hr 00:00: 00:00 mouth [place] tablet 00 :00 daily. Medical Hold if Branch systolic blood pressure less than 120 Insulin 2019-2019- No [id number] 10U inject 10 [facility] Glargine 03-07-08 Units ity of 100 unit/mL 00:00: 00:00 under the [place] (3 mL) 00 :00 skin at Medical injection bedtime. Branch glipiZIDE 5 2019- No [id number] 2.5mg Take 0.5 [facility] mg tablet 03-07- tablets by ity of 00:00: 00:00 mouth 2 [place] 00 :00 (two) Medical times Branch daily before breakfast and dinner for 30 days. metoprolol 2019- No [id number] 25mg Take 1 [facility] succinate 03-07-08 tablet by ity of XL 25 mg 24 00:00: 00:00 mouth 2 [place] hr tablet 00 :00 (two) Medical times Branch daily for 30 days. ranolazine 2020- No [id number] 1000mg Take 2 [facility] 500 mg 12 03-07-08 tablets by ity of hr tablet 00:00: 00:00 mouth [place] 00 :00 every 12 Medical (twelve) Branch hours for 30 days. furosemide 2020- No [id number] 40mg Take 1 [facility] 40 mg 03-07-08 tablet by ity of tablet 00:00: 00:00 mouth [place] 00 :00 every Medical morning Branch and evening. aspirin 81 2019- No [id number] 81mg Take 1 [facility] mg chewable 03-07-08 tablet by it y of tablet 00:00: 00:00 mouth [place] 00 :00 daily with Medical breakfast Branch for 30 days. atorvastati 2019- No [id number] 40mg Take 1 [facility] n 40 mg 03-07-08 tablet by ity of tablet 00:00: 00:00 mouth at [place] 00 :00 bedtime Medical for 30 Branch days. Magnesium 2019-2019- No [id number] 400mg Take 400 [facility] Oxide 420 03-07 05-08 mg by ity of mg Tab 00:00: 00:00 mouth [place] 00 :00 daily. Medical Branch vitamin 2019-2019- No [id number] 1000ug Take 1 [facility] B-12 1,000 03-07-08 tablet by ity of mcg tablet 00:00: 00:00 mouth [place] 00 :00 daily for Medical 90 days. Branch isosorbide 2019- No [id number] 15mg Take 0.5 [facility] mononitrate 03-07-08 tablets by i ty of 30 mg 24 hr 00:00: 00:00 mouth [place] tablet 00 :00 daily. Medical Hold if Branch systolic blood pressure less than 120 OLANZapine 2019- No [id number] 2.5mg Take 1 [facility] 2.5 mg 03-07-07 tablet by ity of tablet 00:00: 00:00 mouth at [place] 00 :00 bedtime Medical for 30 Branch days. temazepam 2019- No [id number] 15mg Take 1 U nivers 15 mg 03-07-07 capsule by ity of capsule 00:00: 00:00 mouth at [place] 00 :00 bedtime as Medical needed for Branch Insomnia. potassium 2019- No [id number] 20meq Take 20 [facility] chloride 20 03-07 05-07 mEq by ity o f mEq packet 00:00: 00:00 mouth [place] 00 :00 daily. Medical Take with Branch lasix in the morning OLANZapine 2019- No [id number] 2.5mg Take 1 [facility] 2.5 mg 03-07 05-07 tablet by ity of tablet 00:00: 00:00 mouth at [place] 00 :00 bedtime Medical for 30 Branch days. temazepam 2019- No [id number] 15mg Take 1 U nivers 15 mg 03-07- capsule by ity of capsule 00:00: 00:00 mouth at [place] 00 :00 bedtime as Medical needed for [place] Insomnia. potassium 2020-0 2020- No [id number] 20meq Take 20 Univers chloride 20 03-07-07 mEq by ity o f mEq packet 00:00: 00:00 mouth [place] 00 :00 daily. Medical Take with Branch lasix in the morning isosorbide 2020-0 2020- No 60mg 60 mg, Univ ers mononitrate 03-06- Oral, ity of (IMDUR) 24 14:00: 13:43 DAILY, [place] hr tablet 00 :56 First dose Medi birdie 60 mg on [facility] 03/06/20 at 0900, Until Discontinu ed, Routine OLANZapine 2020-0 Yes 2.5mg 2.5 mg, Uni vers (ZyPREXA) - Oral, QHS, ity of tablet 2.5 02:00: First dose [place] mg 00 on [facility] 03/05/20 at Branch 2100, Until Discontinu ed, Routine insulin 2020-0 Yes 10U 10 Units, [facility] rs glargine 03-06 Subcutaneo ity o f (LANTUS 02:00: us, QHS, [place] U-100) 00 First dose Medical injection on [facility] 10 Units 03/05/20 at 2100, Until Discontinu ed, Routine donepezil 2020-0 Yes 5mg 5 mg, Univers (ARICEPT) - Oral, QHS, ity of tablet 5 mg 02:00: First dose [place] 00 on [facility] 03/05/20 at Branch 2100, Until Discontinu ed, Routine atorvastati 2020-0 Yes 40mg 40 mg, Univ ers n (LIPITOR) - Oral, QHS, it y of tablet 40 02:00: First dose [place] mg 00 on [facility] 03/05/20 at Branch 2100, Until Discontinu ed, Routine isosorbide 2020-0 2020- No 30mg 30 mg, Univ ers mononitrate 03-05 Oral, ity of (IMDUR) 24 15:30: 15:21 ONCE, 1 [place] hr tablet 00 :00 dose, [facility] Medic al 30 mg 4/20/20 at Branch 1030, Routine spironolact 2020-0 Yes 12.5mg 12.5 mg, Univers one 4-20 Oral, ity of (ALDACTONE) 14:00: DAILY, [place] tablet 12.5 00 First dose Me dical mg on [facility] 03/05/20 at 0900, Until Discontinu ed, Routine memantine 2020-0 Yes 10mg 10 mg, Univer s (NAMENDA) 4-20 Oral, ity of tablet 10 14:00: DAILY, [place] mg 00 First dose Medical on [facility] 03/05/20 at 0900, Until Discontinu ed, Routine
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 Restricted medication : MEGADC lisinopril 2020-0 2020- No 5mg 5 mg, Unive rs (PRINIVIL,Z 20 04-21 Oral, ity of ESTRIL) 14:00: 13:44 DAILY, [place] tablet 5 mg 00 :01 First dose Me dical on [facility] 03/05/20 at 0900, Until Discontinu ed, Routine isosorbide 2020-0 2020- No 30mg 30 mg, Univ ers mononitrate -20 04-20 Oral, ity of (IMDUR) 24 14:00: 14:20 DAILY, [place] hr tablet 00 :04 First dose Medi birdie 30 mg on [facility] 03/05/20 at 0900, Until Discontinu ed, Routine ranolazine 2020-0 Yes 500mg 500 mg, Uni vers (RANEXA) 12 4-20 Oral, ity of hr tablet 13:00: Q12H, [place] 500 mg 00 First dose Medical on [facility] 03/05/20 at 0800, Until Discontinu ed, Routine metoprolol 2020-0 Yes 25mg 25 mg, Unive rs succinate 4-20 Oral, BID, ity of XL (TOPROL 13:00: First dose [place] XL) tablet 00 on [facility] Medical 25 mg 03/05/20 at Branch 0800, Until Discontinu ed, Routine magnesium 2020-0 Yes 400mg 400 mg, Univ ers oxide 4-20 Oral, BID, ity of (MAG-OX 13:00: First dose [place] 400) tablet 00 on [facility] Medica l 400 mg 03/05/20 at Branch 0800, Until Discontinu ed, Routine aspirin 2020-0 Yes 81mg 81 mg, Univers chewable 4-20 Oral, QAM ity of tablet 81 13:00: WITH [place] mg 00 BREAKFAST, Medical First dose Branch on [facility] 03/05/20 at 0800, Until Discontinu ed, Routine Sliding 2020-0 Yes Subcutaneo Univ ers Scale 4-20 us, AC+HS, ity of Insulin-Reg 12:30: First dose [place] ular + Fsbg 00 on [facility] Medica l Testing 03/05/20 at Branch 0730, Until Discontinu ed, Routine glipiZIDE 2020-0 2020- No 5mg 5 mg, Univer s (GLUCOTROL) 4-20 04-22 Oral, ity of tablet 5 mg 12:30: 19:41 BIDAC, [place] 00 :44 First dose Medical on [facility] Branch 03/05/20 at 0730, Until Discontinu ed, Routine glucagon 2020-0 Yes 1mg 1 mg, Univers (GLUCAGEN 4-20 Intramuscu ity of DIAGNOSTIC 03:02: [place], PRN, [place] KIT) 42 Starting Medical injection 1 [place] Branch mg 03/04/20 at 2202, Until Discontinu ed, ADAMA, Blood Glucose < or = 70 mg/dL and patient is unable to swallow or has mental changes. dextrose 50 2020-0 Yes 25mL 25 mL, Univ ers % in water 4-20 Slow IV ity of (D50W) 03:02: Push, PRN, [place] injection 42 Starting Medica l 25 mL [...] Q8H, Medi birdie First dose Branch on [place] 03/04/20 at 2200, Until Discontinu ed, Routine ondansetron 2019-0 Yes 4mg 4 mg, Slow Univers (ZOFRAN 4-20 IV Push, ity of (PF)) 02:34: Q6HPRN, [place] injection 4 40 Starting Medi birdie mg [facility] 03/04/20 at 2134, Until Discontinu ed, Routine, Nausea and Vomiting (N/V) traMADol 2019-0 2020- No 50mg 50 mg, Univer s (ULTRAM) 4-20 04-22 Oral, ity of tablet 50 02:34: 02:33 Q8HPRN, [place] mg 23 :23 Starting Medical [facility] 03/04/20 at 2134, Until Tu03/06/20 at 2133, Routine, Pain (scale 4-6) acetaminoph 2019-0 Yes 650mg 650 mg, Un mel en 4-20 Oral, ity of (TYLENOL) 02:34: Q6HPRN, [place] tablet 650 20 Starting Medic al mg [facility] 03/04/20 at 2134, Until Discontinu ed, Routine, Pain (scale 1-3) lisinopril 2020-0 Yes [id number] 5mg Take 1 Univers 5 mg tablet 4-18 tablet by ity of 00:00: mouth [place] 00 daily. Medical Branch isosorbide 2020-0 Yes [id number] 30mg Take 1 [facility] mononitrate 4-18 tablet by ity of 30 mg 24 hr 00:00: mouth [place] tablet 00 daily. [facility] Branch lisinopril 2020-0 Yes [id number] 5mg Take 1 Univers 5 mg tablet 4-18 tablet by ity of 00:00: mouth [place] 00 daily. [facility] Branch isosorbide 2020-0 Yes [id number] 30mg Take 1 [facility] mononitrate 4-18 tablet by ity of 30 mg 24 hr 00:00: mouth [place] tablet 00 daily. [facility] lisinopril 2020-0 2020- No [id number] 5mg Take 1 Univers 5 mg tablet 4-18 04-22 tablet by it y of 00:00: 00:00 mouth [place] 00 :00 daily. [facility] Branch isosorbide 2020-0 2020- No [id number] 30mg Take 1 Univers mononitrate 4-18 04-22 [...] N ORAL 4-17 mouth. ity of 17:34: [place] [address] Medical Branch thiamine 2020-0 Yes 100mg Take 100 Univ ers (VITAMIN 4-17 mg by ity of B-1) 100 mg 17:34: mouth [place] tablet 27 daily. Medical Branch aspirin 81 2020-0 Yes 81mg Take 81 mg U nivers mg chewable 4-17 by mouth ity of tablet 17:34: daily. [place] [address] Medical Branch atorvastati 2019-0 Yes 40mg Take [...] N ORAL 4-17 mouth. ity of 17:34: [place] [address] Medical Branch thiamine 2020-0 Yes 100mg Take 100 Univ ers (VITAMIN 4-17 mg by ity of B-1) 100 mg 17:34: mouth [place] tablet 27 daily. Medical Branch aspirin 81 2020-0 Yes 81mg Take 81 mg U nivers mg chewable 4-17 by mouth ity of tablet 17:34: daily. [place] [address] Medical Branch atorvastati 2020-0 Yes 40mg Take 40 mg Univers n 40 mg 4-17 by mouth ity of tablet 17:34: at [place] [address] bedtime. Medical Branch NaCl 0.9% 2020-0 Yes [...] Until Discontinu ed, Routine furosemide 2020-0 Yes [id number] 40mg Take 1 [facility] 40 mg 4-17 tablet by ity of tablet 00:00: mouth [place] 00 every Medical morning Branch and evening. potassium 2020-0 Yes [id number] 20meq Take 20 Univers chloride 20 4-17 mEq by ity of mEq packet 00:00: mouth [place] 00 daily. Medical Branch vitamin 2020-0 Yes [id number] 1000ug Take 1 U nivers B-12 1,000 4-17 tablet by ity of mcg tablet 00:00: mouth [place] 00 daily. Medical Branch furosemide 2020-0 Yes [id number] 40mg Take 1 [facility] 40 mg 4-17 tablet by ity of tablet 00:00: mouth [place] 00 every Medical morning Branch and evening. potassium 2020-0 Yes [id number] 20meq Take 20 Univers chloride 20 4-17 mEq by ity of mEq packet 00:00: mouth [place] 00 daily. Medical Branch vitamin 2020-0 Yes [id number] 1000ug Take 1 U nivers B-12 1,000 4-17 tablet by ity of mcg tablet 00:00: mouth [place] 00 daily. Medical Branch furosemide 2020-0 2020- No [id number] 40mg Take 1 Univers 40 mg 4-17 04-22 tablet by ity of tablet 00:00: 00:00 mouth [place] 00 :00 every Medical morning Branch and evening. potassium 2020-0 2020- No [id number] 20meq Take 20 [facility] chloride 20 4-17 04-22 mEq by ity o f mEq packet 00:00: 00:00 mouth [place] 00 :00 daily. Medical Branch vitamin 2020-0 2020- No [id number] 1000ug Take 1 Univers B-12 1,000 4-17 04-22 tablet by ity of mcg tablet 00:00: 00:00 mouth [place] 00 :00 daily. Medical Branch cyanocobala 2020-0 Yes 1000ug 1,000 mcg, Univers min 4-16 Subcutaneo ity of (VITAMIN 20:45: us, Q24H, [place] B12) 00 First dose Medical injection on [facility] Branch 1,000 mcg 03/01/20 at 1545, Until Discontinu ed, Routine isosorbide 2020-0 Yes 30mg 30 mg, Unive rs mononitrate 4-16 Oral, ity of (IMDUR) 24 14:00: DAILY, [place] hr tablet 00 First dose Medi birdie 30 mg on [facility] Branch 03/01/20 at 0900, Until Discontinu ed, Routine memantine 2019-0 Yes 10mg 10 mg, Univer s (NAMENDA) 4-16 Oral, ity of tablet 10 14:00: DAILY, [place] mg 00 First dose Medical on [facility] 03/01/20 at 0900, Until Discontinu ed, Routine
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 Restricted medication : MEGADC lisinopril 2020-0 Yes 5mg 5 mg, Univer s (PRINIVIL,Z -16 Oral, ity of ESTRIL) 14:00: DAILY, [place] tablet 5 mg 00 First dose Me dical on [facility] 03/01/20 at 0900, Until Discontinu ed, Routine enoxaparin 2020-0 Yes 30mg 30 mg, Unive rs (LOVENOX) 03-01 Subcutaneo ity of injection 14:00: us, DAILY, [place] 30 mg 00 First dose Medical on [facility] 03/01/20 at 0900, Until Discontinu ed, Routine KCL 2020-0 2020- No 20meq 20 mEq, Univers (KLOR-CON 03-01 Oral, ity of M20) tablet 14:00: 13:26 DAILY, [place] 20 mEq 00 :35 First dose Medical on [facility] 03/01/20 at 0900, Until Discontinu ed, Routine KCL 2020-0 Yes 40meq 40 mEq, Univers (KLOR-CON 16 Oral, BID, ity of M20) tablet 13:30: First dose [place] 40 mEq 00 on [facility] 03/01/20 at Branch 0830, Until Discontinu ed, Routine magnesium 2020-0 2020- No 2g 2 g, IV Univ ers sulfate in 03-01 Infusion, ity of water 2 03:30: 03:30 ONCE, 1 [place] gram/50 mL 00 :00 dose, Thu [facility] birdie (4 %) 2 g 02/29/20 at [facility] piggyback 2230 metoprolol 2020-0 2020- No 5mg 5 mg, Slow Univers (LOPRESSOR) 03-01 IV Push, ity of injection 5 03:30: 03:37 ONCE, 1 [place] mg 00 :00 dose, [facility] 02/29/20 at Branch 2230, ADAMA glipiZIDE 2020-0 Yes 5mg 5 mg, Univers (GLUCOTROL) 16 Oral, ity of tablet 5 mg 02:45: BIDAC, [place] 00 First dose Medical on [facility] 02/29/20 at 2145, Until Discontinu [...] Branch 2130, Until Discontinu ed, Routine furosemide 2019- Yes 40mg 40 mg, Unive rs (LASIX) 16 Slow IV ity of injection 02:30: Push, [place] 40 mg 00 Q12H, Medical First dose Branch on Thu02/29/20 at 2130, Until Discontinu ed, Routine KCL 2019- 2020- No 40meq 40 mEq, Univers (KLOR-CON 03-01-16 Oral, ity of M20) tablet 01:00: 02:05 ONCE, 1 [place] 40 mEq 00 :00 dose, [facility] Medical 02/29/20 at Branch 2000, Routine acetaminoph 0 Yes 650mg 650 mg, Un mel en 02-28 Oral, ity of (TYLENOL) 23:57: Q6HPRN, [place] tablet 650 25 Starting Medic al mg Thu Branch 02/29/20 at 1857, Until Discontinu ed, Routine, Pain (scale 1-3) NaCl 0.9% 2019- No 500mL at 999 Univ ers (NS) bolus 02-2815 mL/hr, 500 it y of infusion 23:30: [...] 02-14 by mouth ity of 00:00: daily. [address] donepezil 5 2019-0 2020- No 5mg Take 5 mg Univers mg tablet 02-1408 by mouth ity o f 00:00: 00:00 daily. [place] 00 :00 [facility] nitroglycer 2019-0 2020- No DISSOLVE U nivers [...] by mouth ity of tablet 23:00: daily. [place] [address] Medical Branch atorvastati 2020-0 Yes 40mg Take 40 mg Univers n 40 mg 3-03 by mouth ity of tablet 23:00: at [place] [address] bedtime. Medical Branch NaCl 0.9% 2020-0 Yes [...] by ity of mEq packet 23:00: mouth [place] 52 daily. Medical Branch Cholecalcif 2020-0 Yes Take by Un mel ann, 3-03 mouth. ity of Vitamin D3, 23:00: [place] 2,000 unit 52 Medical capsule Branch metoprolol 2020-0 Yes 12.5mg Take 12.5 Univers tartrate 3-03 mg by ity of 12.5 mg 23:00: mouth 2 [place] 52 (two) Medical times Branch daily. MULTIVITAMI 2020-0 Yes Take by Un mel N ORAL 3-03 mouth. ity of 23:00: [place] [address] Medical Branch thiamine 2020-0 Yes 100mg Take 100 Univ ers (VITAMIN 3-03 mg by ity of B-1) 100 mg 23:00: mouth [place] tablet 52 daily. Medical Branch aspirin 81 2020-0 Yes 81mg Take 81 mg U nivers mg chewable 3-03 by mouth ity of tablet 23:00: daily. [place] [address] Medical Branch atorvastati 2020-0 Yes 40mg Take 40 mg Univers n 40 mg 3-03 by mouth ity of tablet 23:00: at [place] [address] bedtime. Medical Branch NaCl 0.9% 2020-0 Yes [...] N ORAL 3-03 mouth. ity of 23:00: [place] [address] Medical Branch thiamine 2020-0 Yes 100mg Take 100 Univ ers (VITAMIN 3-03 mg by ity of B-1) 100 mg 23:00: mouth [place] tablet 52 daily. Medical Branch aspirin 81 2020-0 Yes 81mg Take 81 mg U nivers mg chewable 3-03 by mouth ity of tablet 23:00: daily. [place] [address] Medical Branch atorvastati 2020-0 Yes 40mg Take 40 mg Univers n 40 mg 3-03 by mouth ity of tablet 23:00: at [place] 52 bedtime. Medical Branch NaCl 0.9% 2020-0 [...] 3-03 mouth. ity of Vitamin D3, 23:00: [place] 2,000 [place] [address] Medical capsule Branch metoprolol 2020-0 Yes 12.5mg Take 12.5 Univers tartrate 3-03 mg by ity of 12.5 mg 23:00: mouth 2 [place] 52 (two) Medical times Branch daily. MULTIVITAMI 2020-0 Yes Take by Un mel N ORAL 3-03 mouth. ity of 23:00: [place] [address] Medical Branch thiamine 2020-0 Yes 100mg Take 100 Univ ers (VITAMIN 3-03 mg by ity of B-1) 100 mg 23:00: mouth [facility] 52 daily. Medical Branch aspirin 81 2020-0 Yes 81mg Take 81 mg U nivers mg chewable 3-03 by mouth ity of tablet 23:00: daily. [place] [address] Medical Branch atorvastati 2020-0 Yes 40mg Take 40 mg Univers n 40 mg 3-03 by mouth ity of tablet 23:00: at [place] [address] bedtime. Medical Branch NaCl 0.9% 2020-0 Yes [...] First dose [place] mg 00 on [facility] 01/16/20 at Branch 2100, Until Discontinu ed, Routine ranolazine 2019-0 2020- No [id number] 500mg Take 1 Univers 500 mg 12 01-16 04-03 tablet by ity of hr tablet 00:00: 04:59 mouth [place] 00 :00 every 12 Medical (twelve) Branch hours for 30 days. ranolazine 2019-0 2020- No [id number] 500mg Take 1 Univers 500 mg 12 - 04-03 tablet by ity of hr tablet 00:00: 04:59 mouth [place] 00 :00 every 12 Medical (twelve) Branch hours for 30 days. ranolazine 2020-0 2020- No [id number] 500mg Take 1 Univers 500 mg 01-16 tablet by ity of hr tablet 00:00: 04:59 mouth [place] 00 :00 every 12 Medical (twelve) Branch hours for 30 days. ranolazine 2020-0 2020- No [id number] 500mg Take 1 Univers 500 mg 01-16 tablet by ity of hr tablet 00:00: 04:59 mouth [place] 00 :00 every 12 Medical (twelve) Branch hours for 30 days. ranolazine 2020-0 Yes 500mg 500 mg, Uni vers (RANEXA) 12 01-15 Oral, ity of hr tablet 22:30: Q12H, [place] 500 mg 00 First dose Medical on [facility] 01/16/20 at 1630, Until Discontinu ed, Routine insulin 2020-0 Yes 30U 30 Units, Unive rs glargine 01-15 Subcutaneo ity o f (LANTUS 15:00: [place], [place]ILY, [place] U-100[place] 00 First dose Medical injection on [facility] 30 Units 01/16/20 at 0900, Until Discontinu ed furosemide 2020-0 Yes 40mg 40 mg, Unive rs (LASIX) 01-15 Oral, ity of tablet 40 15:00: DAILY, [place] mg 00 First dose Medical on [facility] 01/16/20 at 0900, Until Discontinu ed, Routine aspirin 2020-0 Yes 81mg 81 mg, Univers chewable 01-15 Oral, ity of tablet 81 15:00: DAILY, [place] mg 00 First dose Medical on [facility] 01/16/20 at 0900, Until Discontinu ed, Routine metoprolol 2020-0 Yes 12.5mg 12.5 mg, U nivers tartrate -02 Oral, BID, ity o f (LOPRESSOR) 14:00: First dose [place] tablet 12.5 00 on [facility] Medica l mg 01/16/20 at Branch 0800, [...] 01/16/20 Branch at 0452, Until Discontinu ed, AADMA, Blood Glucose < or = 70 mg/dL [...] IV Push, ity of (PF)) 07:55: Q6HPRN, [place] injection 4 01 Starting Medi birdie mg 01/16/20 Branch at 0155, Until Discontinu ed, Routine, Nausea and Vomiting (N/V) morpHINE 2019-0 2020- No 2mg 2 mg, Slow Un mle injection 2 01-15 03-03 IV Push, ity of mg 07:54: 07:53 Q6HPRN, [place] 55 :55 Starting Medical 01/16/20 Branch at [...] 3-02 Oral, ity of (TYLENOL) 07:54: Q6HPRN, [place] tablet 650 44 Starting Medic al mg [...] 01/15/20 at 2345, ADAMA furosemide 2018-11 Yes [id number] 40mg Take 1 Univers 40 mg 0-26 tablet by ity of tablet 00:00: mouth [place] 00 daily. Medical Branch furosemide 2018-11 Yes [id number] 40mg Take 1 Univers 40 mg 0-26 tablet by ity of tablet 00:00: mouth [place] 00 daily. Medical Branch furosemide 2018-11 Yes [id number] 40mg Take 1 Univers 40 mg 0-26 tablet by ity of tablet 00:00: mouth [place] 00 daily. Medical Branch furosemide 2018-11 Yes [id number] 40mg Take 1 Univers 40 mg 0-26 tablet by ity of tablet 00:00: mouth [place] 00 daily. Medical Branch furosemide 2018-11 2020- No [id number] 40mg Take 1 Univers 40 mg 0-26 04-17 tablet by ity of tablet 00:00: 00:00 mouth [place] 00 :00 daily. Medical Branch magnesium 2019-1 Yes [id number] 400mg Take 400 Univers oxide 420 0-23 mg by ity of mg Tab 00:00: mouth [place] 00 daily. Medical Branch magnesium 2019-1 Yes [id number] 400mg Take 400 Univers oxide 420 0-23 mg by ity of mg Tab 00:00: mouth [place] 00 daily. Medical Branch magnesium 2019-1 Yes [id number] 400mg Take 400 Univers oxide 420 0-23 mg by ity of mg Tab 00:00: mouth [place] 00 daily. Medical Branch magnesium 2019-1 Yes [id number] 400mg Take 400 Univers oxide 420 0-23 mg by ity of mg Tab 00:00: mouth [place] 00 daily. Medical Branch magnesium 2019-1 Yes [id number] 400mg Take 400 Univers oxide 420 0-23 mg by ity of mg Tab 00:00: mouth [place] 00 daily. [facility] Branch magnesium 2019-1 Yes [id number] 400mg Take 400 Univers oxide 420 0-23 mg by ity of mg Tab 00:00: mouth [place] 00 daily. [facility] Branch magnesium 2019- 2020- No [id number] 400mg Take 400 Univers oxide 420 0-23 04-22 mg by ity of mg Tab 00:00: 00:00 mouth [place] 00 :00 daily. [facility] Insulin 2019-0 Yes [id number] 30U inject 30 Univers Glargine 9-11 Units ity of 100 unit/mL 00:00: under the [place] (3 mL) 00 skin every Medical injection morning. Branch Insulin 2019-0 Yes [id number] 30U inject 30 Univers Glargine 9-11 Units ity of 100 unit/mL 00:00: under the [place] (3 mL) 00 skin every Medical injection morning. Branch Insulin 2019-0 Yes [id number] 30U inject 30 Univers Glargine 9-11 Units ity of 100 unit/mL 00:00: under the [place] (3 mL) 00 skin every Medical injection morning. Branch Insulin 2019-0 Yes [id number] 30U inject 30 Univers Glargine 9-11 Units ity of 100 unit/mL 00:00: under the [place] (3 mL) 00 skin every Medical injection morning. Branch Insulin 2019-0 Yes [id number] 30U inject 30 Univers Glargine 9-11 Units ity of 100 unit/mL 00:00: under the [place] (3 mL) 00 skin every Medical injection morning. Branch Insulin Yes [id number] 30U inject 30 Univers Glargine 9-11 Units ity of 100 unit/mL 00:00: under the [place] (3 mL) 00 skin every Medical injection morning. Branch Insulin Yes [id number] 30U inject 30 Univers Glargine 9-11 Units ity of 100 unit/mL 00:00: under the [place] (3 mL) 00 skin every Medical injection morning. Branch Insulin 2020- No [id number] 30U inject 30 Univers Glargine 9-11 04-22 [...] mg under ity of 15:26: the skin. [place] [address] Medical Branch Cholecalcif Yes Take by Un mel ann, 5-10 mouth. ity of Vitamin D3, 15:26: [place] 2,000 unit 43 Medical capsule Branch metoprolol Yes 12.5mg Take 12.5 Univers tartrate 5-10 mg by ity of 12.5 mg 15:26: mouth 2 [place] 43 (two) Medical times Branch daily. MULTIVITAMI Yes Take by Un mel N ORAL 5-10 mouth. ity of 15:26: [place] [address] Medical Branch thiamine Yes 100mg Take 100 Univ ers (VITAMIN 5-10 mg by ity of B-1) 100 mg 15:26: mouth [place] tablet 43 daily. Medical Branch aspirin 81 Yes 81mg Take 81 mg U nivers mg chewable 5-10 by mouth ity of tablet 15:26: daily. [place] [address] Medical Branch atorvastati Yes 40mg Take 40 mg Univers n 40 mg 5-10 by mouth ity of tablet 15:26: at [place] [address] bedtime. Medical Branch furosemide Yes 40mg Take 40 mg U nivers 40 mg 5-10 by mouth ity of tablet 15:26: daily. [place] [address] Medical Branch NaCl 0.9% 0 Yes 10mL [...] mg under ity of 15:26: the skin. [place] [address] Medical Branch Cholecalcif 0 Yes Take by Un mel ann, 5-10 mouth. ity of Vitamin D3, 15:26: [place] 2,000 unit Medical capsule Branch metoprolol Yes 12.5mg Take 12.5 Univers tartrate 5-10 mg by ity of 12.5 mg 15:26: mouth 2 [place] [address] (two) Medical times Branch daily. MULTIVITAMI 0 Yes Take by Un mel N ORAL 5-10 mouth. ity of 15:26: [place] [address] Medical Branch thiamine 0 Yes 100mg Take 100 Univ ers (VITAMIN 5-10 mg by ity of B-1) 100 mg 15:26: mouth [place] tablet 43 daily. Medical Branch aspirin 81 Yes 81mg Take 81 mg U nivers mg chewable 5-10 by mouth ity of tablet 15:26: daily. [place] [address] Medical Branch atorvastati 0 Yes 40mg Take 40 mg Univers n 40 mg 5-10 by mouth ity of tablet 15:26: at [place] [address] bedtime. Medical Branch furosemide 0 Yes 40mg Take 40 mg U nivers 40 mg 5-10 by mouth ity of tablet 15:26: daily. [place] [address] Medical Branch NaCl 0.9% 0 Yes 10mL Inject 10 Uni vers (NS) Soln 5-10 mL ity of 10 mL with 15:26: intravenou [place] sodium 43 sly once Medical chloride now. Branch 2.5 mEq/mL SolP 17.125 mEq insulin 2019-0 Yes [id number] 4U inject 4 U nivers lispro, 5-10 Units ity of human, 100 00:00: under the [place] unit/mL 00 skin 3 Medical injection (three) Branch times daily before meals. insulin 2018-0 Yes [id number] 4U inject 4 U nivers lispro, 5-10 Units ity of human, 100 00:00: under the [place] unit/mL 00 skin 3 Medical injection (three) Branch times daily before meals. insulin 2018-0 Yes [id number] 4U inject 4 U nivers lispro, 5-10 Units ity of human, 100 00:00: under the [place] unit/mL 00 skin 3 Medical injection (three) Branch times daily before meals. insulin 2018-0 Yes [id number] 4U inject 4 U nivers lispro, 5-10 Units ity of human, 100 00:00: under the [place] unit/mL 00 skin 3 Medical injection (three) Branch times daily before meals. insulin 2018-0 Yes [id number] 4U inject 4 U nivers lispro, 5-10 Units ity of human, 100 00:00: under the [place] unit/mL 00 skin 3 Medical injection (three) Branch times daily before meals. insulin 2018-0 Yes [id number] 4U inject 4 U nivers lispro, 5-10 Units ity of human, 100 00:00: under the [place] unit/mL 00 skin 3 Medical injection (three) Branch times daily before meals. Insulin 2018-0 Yes [id number] 18U inject Uni vers Glargine 5-10 18-24 ity of 100 unit/mL 00:00: Units [place] (3 mL) 00 under the Medical injection skin every Bran ch morning. insulin 2018-0 Yes [id number] 4U inject 4 U nivers lispro, 5-10 Units ity of human, 100 00:00: under the [place] unit/mL 00 skin 3 Medical injection (three) Branch times daily before meals. insulin 2018-0 Yes [id number] 4U inject 4 U nivers lispro, 5-10 Units ity of human, 100 00:00: under the [place] unit/mL 00 skin 3 Medical injection (three) Branch times daily before meals. insulin 2018-0 Yes [id number] 4U inject 4 U nivers lispro, 5-10 Units ity of human, 100 00:00: under the [place] unit/mL 00 skin 3 Medical injection (three) Branch times daily before meals. insulin 2018- Yes [id number] 4U inject 4 U nivers lispro, 5-10 Units ity of human, 100 00:00: under the [place] unit/mL 00 skin 3 Medical injection (three) Branch times daily before meals. insulin 2018- Yes [id number] 4U inject 4 U nivers lispro, 5-10 Units ity of human, 100 00:00: under the [place] unit/mL 00 skin 3 Medical injection (three) Branch times daily before meals. insulin 2019- No [id number] 4U inject 4 Univers lispro, 5-10 05-07 Units ity of human, 100 00:00: 00:00 under the [place] unit/mL 00 :00 skin 3 Medical injection (three) Branch times daily before meals. insulin 2019- No [id number] 4U inject 4 Univers lispro, 5-10 05-07 Units ity of human, 100 00:00: 00:00 under the [place] unit/mL 00 :00 skin 3 Medical injection (three) Branch times daily before meals. Insulin 2019- No [id number] 18U inject Un mel Glargine 03-25- 18-24 ity of 100 unit/mL 00:00: 00:00 [...] by ity of mEq packet 16:39: mouth [place] 29 daily. Medical Branch Humalog Humalog Yes Anneliese as Common [place] directed [facility] Aspir-Low Aspir-Low Yes [place] 1 tablet Common [place] [facility] Namzaric Namzaric Yes [place] 1 Common [place] [facility] Zyprexa Zyprexa Yes [place] 1 tablet Comm on Millender [facility] Vitamin B-1 Vitamin B-1 Yes [place] 1 tablet Common [place] [facility] Multivitami Multivitami Yes Anneliese as Common n n [place] directed [facility] Lantus Lantus Yes [place] as Common [place] directed [facility] Lasix Lasix Yes [place] 1 tablet Common [facility] Isosorbide Isosorbide Yes [place] 1 tablet Common Mononitrate Mononitrate [place] in the [facility] Lyrica Lyrica Yes [place] 1 capsule Commo n Millender [facility] Potassium Potassium Yes [place] 1 capsule Common Chloride Chloride [place] with food [facility] Tylenol # 3 Tylenol # 3 Yes Anneliese one tab Common [place]ender [facility] Vitamin D-3 Vitamin D-3 Yes [place] 2 capsule Common [place] [facility] Immunizations Ordered Filled Immunization Date Status Comments [facility] Immunization Name Name SARS-COV-2 COVID-19 2021-09-16 Completed Unive rsity of MODERNA VACCINE 00:00:00 [facility] SARS-COV-2 COVID-19 2021-09-16 Completed Unive rsity of MODERNA VACCINE 00:00:00 [facility] SARS-COV-2 COVID-19 2021-09-16 Completed Unive rsity of MODERNA VACCINE 00:00:00 [facility] SARS-COV-2 COVID-19 2021-09-16 Completed Unive rsity of MODERNA VACCINE 00:00:00 [facility] SARS-COV-2 COVID-19 2021-08-17 Completed Unive rsity of MODERNA VACCINE 00:00:00 [facility] Influenza High Dose 2021-08-17 Completed Unive rsity of 00:00:00 [facility] SARS-COV-2 COVID-19 2021-08-17 Completed Unive rsity of MODERNA VACCINE 00:00:00 [facility] Influenza High Dose 2021-08-17 Completed Unive rsity of 00:00:00 [facility] SARS-COV-2 COVID-19 2021-08-17 Completed Unive rsity of MODERNA VACCINE 00:00:00 [facility] Influenza High Dose 2021-08-17 Completed Unive rsity of 00:00:00 [facility] SARS-COV-2 COVID-19 2021-08-17 Completed Unive rsity of MODERNA VACCINE 00:00:00 [facility] Influenza High Dose 2021-08-17 Completed Unive rsity of 00:00:00 [facility] Zoster(Zostavax)( 2020-09-14 Completed Unive rsity of ingles) 00:00:00 [facility] Zoster(Zostavax)( 2020-09-14 Completed Unive rsity of ingles) 00:00:00 [facility] Zoster(Zostavax)( 2020-09-14 Completed Unive rsity of ingles) 00:00:00 [facility] Zoster(Zostavax)( 2020-09-14 Completed Unive rsity of ingles) 00:00:00 [facility] Influenza High Dose 2020-07-13 Completed Unive rsity of 00:00:00 [facility] Influenza High Dose 2020-07-13 Completed Unive rsity of 00:00:00 [facility] Influenza High Dose 2020-07-13 Completed Unive rsity of 00:00:00 [facility] Influenza High Dose 2020-07-13 Completed Unive rsity of 00:00:00 [facility] Influenza High Dose 2019-09-15 Completed Unive rsity of 00:00:00 [facility] Influenza High Dose 2019-09-15 Completed Unive rsity of 00:00:00 [facility] Influenza High Dose 2019-09-15 Completed Unive rsity of 00:00:00 [facility] Influenza High Dose 2019-09-15 Completed Unive rsity of 00:00:00 [facility] Influenza Virus 2018-09-09 Completed Universit y of Vaccine 00:00:00 [facility] Influenza Virus 2018-09-09 Completed Universit y of Vaccine 00:00:00 [facility] Influenza Virus 2018-09-09 Completed Universit y of Vaccine 00:00:00 [facility] Influenza Virus 2018-09-09 Completed Universit y of Vaccine 00:00:00 [facility] Influenza Virus 2018-09-09 Completed Universit y of Vaccine 00:00:00 [facility] Influenza Virus 2018-09-09 Completed Universit y of Vaccine 00:00:00 [facility] Influenza Virus 2018-09-09 Completed Universit y of Vaccine 00:00:00 [facility] Influenza Virus 2018-09-09 Completed Universit y of Vaccine 00:00:00 [facility] Influenza Virus 2018-09-09 Completed Universit y of Vaccine 00:00:00 [facility] Influenza Virus 2018-09-09 Completed Universit y of Vaccine 00:00:00 [facility] Influenza Virus 2018-09-09 Completed Universit y of Vaccine 00:00:00 [facility] Influenza Virus 2018-09-09 Completed Universit y of Vaccine 00:00:00 [facility] Influenza Virus 2018-09-09 Completed Universit y of Vaccine 00:00:00 [facility] Influenza Virus 2018-09-09 Completed Universit y of Vaccine 00:00:00 [facility] Influenza Virus 2018-09-09 Completed Universit y of Vaccine 00:00:00 [facility] Influenza Virus 2018-09-09 Completed Universit y of Vaccine 00:00:00 [facility] Influenza Virus 2018-09-09 Completed Universit y of Vaccine 00:00:00 [facility] Influenza Virus 2018-09-09 Completed Universit y of Vaccine 00:00:00 [facility] Influenza Virus 2018-09-09 Completed Universit y of Vaccine 00:00:00 [facility] Influenza Virus 2018-09-09 Completed Universit y of Vaccine 00:00:00 [facility] Influenza Virus 2018-09-09 Completed Universit y of Vaccine 00:00:00 [facility] Influenza Virus 2018-09-09 Completed Universit y of Vaccine 00:00:00 [facility] Pneumococcal 2016-11-02 Completed University o f Polysaccharide, 00:00:00 [facility] PPSV23 (PNEUMOVAX) [place] Pneumococcal 2016-11-02 Completed University o f Polysaccharide, [...] ical PPSV23 (PNEUMOVAX) Branch Pneumococcal 2016-11-02 Completed [place] o f Polysaccharide, 00:00:00 [place] Med ical PPSV23 (PNEUMOVAX) Branch Pneumococcal 2016-11-02 Completed University o f Polysaccharide, 00:00:00 [place] Med ical PPSV23 (PNEUMOVAX) Branch Pneumococcal 2016-11-02 Completed University o f Polysaccharide, 00:00:00 [place] Med ical PPSV23 (PNEUMOVAX) Branch Pneumococcal 2016-11-02 Completed [place] o f Polysaccharide, 00:00:00 [place] Med ical PPSV23 (PNEUMOVAX) Branch Vital Signs Vital Name Observation Time Observation Value Comments Source Systolic blood 2022-03-01 16:36:00 143 mm[Hg] Univer sity of pressure [facility] Diastolic blood 2022-03-01 16:36:00 80 mm[Hg] Unive rsity of [facility] Heart rate 2022-03-01 16:36:00 98 /min [facility] Respiratory rate 2022-03-01 16:36:00 16 /[facility] in 2022-03-01 16:36:00 97 /min [facility] Arterial blood by [employer] Pulse oximetry Branch Body temperature 2022-03-01 11:42:00 36.94 [facility]anka [facility] Body height 2022-03-01 11:42:00 170.2 cm [facility] Body weight 2022-03-01 11:42:00 77.111 kg [facility] BMI 2022-03-01 11:42:00 26.63 kg/m2 [facility] Systolic blood 2021-11-02 17:17:00 109 mm[Hg] Univer sity of [facility] Diastolic blood 2021-11-02 17:17:00 67 mm[Hg] Unive rsity of [facility] Heart rate 2021-11-02 17:17:00 84 /min [facility] Body temperature 2021-11-02 17:17:00 36.44 [facility]anka [facility] Res[facility] rate 2021-11-02 17:17:00 18 /min [facility] O[facility] saturation in 2021-11-02 17:17:00 95 /min University of Arterial blood by [place] [employer] birdie Pulse oximetry Branch Body weight 2021-11-02 09:17:00 79.969 kg Universi ty of [place] [facility] BMI 2021-11-02 09:17:00 27.61 kg/m2 Universi ty of [place] [facility] Body height 2021-10-31 05:46:00 170.2 cm Universi ty of [place] [facility] Systolic blood 2021-04-25 22:36:00 118 mm[Hg] Univer sity of pressure [place] [facility] Diastolic blood 2021-04-25 22:36:00 70 mm[Hg] Unive rsity of pressure [place] [facility] Heart rate 2021-04-25 22:36:00 68 /min Universi ty of [place] [facility] Respiratory rate 2021-04-25 22:36:00 18 /min Univ ersity of [place] [facility] Oxygen saturation in 2021-04-25 22:36:00 99 /min University of Arterial blood by [place] [employer] birdie Pulse oximetry Branch Body temperature 2021-04-25 15:42:00 36.44 Priyanka Univ ersity of [place] [facility] Body weight 2021-04-25 15:42:00 81.647 kg Universi ty of [place] [facility] BMI 2021-04-25 15:42:00 27.37 kg/m2 Universi ty of [place] [facility] Systolic blood 2020-06-26 10:00:00 124 mm[Hg] Univer sity of pressure [place] [facility] Diastolic blood 2020-06-26 10:00:00 78 mm[Hg] Unive rsity of pressure [place] [facility] Respiratory rate 2020-06-26 10:00:00 18 /min Univ ersity of [place] [facility] Oxygen saturation in 2020-06-26 10:00:00 98 /min University of Arterial blood by [place] [employer] birdie Pulse oximetry Branch Heart rate 2020-06-26 08:56:00 98 /min Universi ty of [place] [facility] Body temperature 2020-06-26 08:56:00 37.17 Priyanka Univ ersity of [place] [facility] Body weight 2020-06-26 08:56:00 74.844 kg Universi ty of [place] [facility] BMI 2020-06-26 08:56:00 25.09 kg/m2 Universi ty of [place] [facility] Systolic blood 2020-06-26 10:00:00 124 mm[Hg] Univer sity of pressure [place] [facility] Diastolic blood 2020-06-26 10:00:00 78 mm[Hg] Unive rsity of pressure [place] [facility] Respiratory rate 2020-06-26 10:00:00 18 /min Univ ersity of [place] [facility] Oxygen saturation in 2020-06-26 10:00:00 98 /min University of Arterial blood by [facility] [facility] Pulse oximetry Branch Heart rate 2020-06-26 08:56:00 98 /min Universi ty of [place] [facility] Body temperature 2020-06-26 08:56:00 37.17 Priyanka Univ ersity of [place] [facility] Body weight 2020-06-26 08:56:00 74.844 kg Universi ty of [place] [facility] BMI 2020-06-26 08:56:00 25.09 kg/m2 Universi ty of [place] [facility] Systolic blood 2020-05-24 15:47:29 166 mm[Hg] Univer sity of pressure [place] [facility] Diastolic blood 2020-05-24 15:47:29 89 mm[Hg] Unive rsity of pressure [place] [facility] Heart rate 2020-05-24 15:47:29 86 /min Universi ty of [place] [facility] Respiratory rate 2020-05-24 15:47:29 16 /min Univ ersity of [place] [facility] Oxygen saturation in 2020-05-24 15:47:29 97 /min University of Arterial blood by [facility] [facility] Pulse oximetry Branch Body temperature 2020-05-24 11:44:00 36.94 Priyanka Univ ersity of [place] [facility] Body height 2020-05-24 11:44:00 172.7 cm Universi ty of [place] [facility] Body weight 2020-05-24 11:44:00 74.844 kg Universi ty of [place] [facility] BMI 2020-05-24 11:44:00 25.09 kg/m2 Universi ty of [place] [facility] Systolic blood 2020-05-24 15:47:29 166 mm[Hg] Univer sity of pressure [place] [facility] Diastolic blood 2020-05-24 15:47:29 89 mm[Hg] Unive rsity of pressure [place] [facility] Heart rate 2020-05-24 15:47:29 86 /min [facility] Respiratory rate 2020-05-24 15:47:29 16 /min [facility] Oxygen saturation in 2020-05-24 15:47:29 97 /min [facility] Arterial blood by [facility] Pulse oximetry Branch Body temperature 2020-05-24 11:44:00 36.94 Priyanka [facility] Body height 2020-05-24 11:44:00 172.7 cm [facility] Body weight 2020-05-24 11:44:00 74.844 kg [facility] BMI 2020-05-24 11:44:00 25.09 kg/m2 [facility] Systolic blood 2020-03-24 02:31:00 127 mm[Hg] [facility] Diastolic blood 2020-03-24 02:31:00 72 mm[Hg] Unive rsity of pressure [facility] Heart rate 2020-03-24 02:31:00 69 /min [facility] [place] Body temperature 2020-03-24 02:31:00 36.39 Priyanka [facility] Respiratory rate 2020-03-24 02:31:00 18 /min [facility] Oxygen saturation in 2020-03-24 02:31:00 97 /min [facility] Arterial blood by [facility] Pulse oximetry Branch Systolic blood 2020-03-23 21:35:00 100 mm[Hg] [facility] Diastolic blood 2020-03-23 21:35:00 59 mm[Hg] [facility] Heart rate 2020-03-23 21:35:00 79 /min [facility] of [facility] Body temperature 2020-03-23 21:35:00 36.78 Priyanka [facility] Respiratory rate 2020-03-23 21:35:00 18 /min [facility] Oxygen saturation in 2020-03-23 21:35:00 99 /min [facility] Arterial blood by [facility] Pulse oximetry Branch Body weight 2020-03-23 09:41:00 76.613 kg [facility] BMI 2020-03-23 09:41:00 26.45 kg/m2 [facility] Body height 2020-03-23 03:43:00 170.2 cm [facility] Systolic blood 2020-03-21 20:55:00 128 mm[Hg] [facility] Diastolic blood 2020-03-21 20:55:00 61 mm[Hg] [facility] Heart rate 2020-03-21 20:55:00 75 /min [facility] Respiratory rate 2020-03-21 20:55:00 10 /min [facility] Oxygen saturation in 2020-03-21 20:55:00 98 /min [facility]ial blood by [facility] Pulse oximetry Branch Body temperature 2020-03-21 20:03:00 37.83 Priyanka [facility] Body height 2020-03-21 20:03:00 170.2 cm [facility] Body weight 2020-03-21 20:03:00 76.204 kg [facility] BMI 2020-03-21 20:03:00 26.31 kg/m2 [facility] Systolic blood 2020-03-07 20:50:00 118 mm[Hg] [facility] Diastolic blood 2020-03-07 20:50:00 65 mm[Hg] [facility] Heart rate 2020-03-07 20:50:00 85 /min [facility] Body temperature 2020-03-07 20:50:00 36.39 Priyanka [facility] Respiratory rate 2020-03-07 20:50:00 18 /min [facility] Oxygen saturation in 2020-03-07 20:50:00 95 /min [facility]terial blood by [facility] Pulse oximetry Branch Body height 2020-03-05 02:35:00 172.7 cm [facility] Body weight 2020-03-05 02:35:00 73.483 kg [facility] BMI 2020-03-05 02:35:00 24.63 kg/m2 [facility] Systolic blood 2020-03-02 15:49:00 122 mm[Hg] [facility] Diastolic blood 2020-03-02 15:49:00 81 mm[Hg] [facility] Heart rate 2020-03-02 15:49:00 89 /min [facility] Body temperature 2020-03-02 15:49:00 37.06 Priyanka [facility] Respiratory rate 2020-03-02 15:49:00 19 /min [facility] saturation in 2020-03-02 15:49:00 96 /min [facility] Arterial blood by [facility] Pulse oximetry Branch Body height 2020-03-01 00:54:00 170.2 cm [facility] Body weight 2020-03-01 00:54:00 76.975 kg [facility]i [facility] of [facility] BMI 2020-03-01 00:54:00 26.58 kg/m2 [facility] Systolic blood 2020-01-17 21:08:00 116 mm[Hg] Univer sity of pressure [facility] Diastolic blood 2020-01-17 21:08:00 78 mm[Hg] [facility] Heart rate 2020-01-17 21:08:00 88 /min Universi ty [facility] Body temperature 2020-01-17 21:08:00 36.72 Priyanka [facility] Respiratory rate 2020-01-17 21:08:00 18 /min [facility] Oxygen saturation in 2020-01-17 21:08:00 98 /min [facility]ial blood by [facility] Pulse oximetry Branch Body height 2020-01-16 06:21:00 172.7 cm Universi ty [facility] Body weight 2020-01-16 04:35:00 83.462 kg Universi ty [facility] BMI 2020-01-16 04:35:00 27.98 kg/m2 [facility] Procedure Date / Time Performing Clinician Source Performed XR LUMBAR SPINE 2 VW 2022-03-01 14:18:00 Angelika Aguilar [facility] EXTERNAL PROVIDER RECORDS 2021-11-19 06:01:00 Doctor Unassigned, [facility] POCT GLUCOSE (AUTOMATED) 2021-11-02 22:49:00 Aida Shah [facility] POCT GLUCOSE (AUTOMATED) 2021-11-02 17:06:00 Aida Shah [facility] POCT GLUCOSE (AUTOMATED) 2021-11-02 13:30:00 Aida Shah [facility] TROPONIN I 2021-11-02 09:29:00 Alexandra Hdz [facility] BASIC METABOLIC PANEL 2021-11-02 09:29:00 [facility] ([facility], K, CL, CO2, GLUCOSE, Medica l Branch BUN, CREATININE, CA) CBC WITH DIFF 2021-11-02 09:29:00 [facility] N-TERMINAL PRO-BNP 2021-11-02 09:29:00 Alexandra Hdz [facility] POCT GLUCOSE (AUTOMATED) 2021-11-02 01:27:00 Aida Shah Giftbar [facility] POCT GLUCOSE (AUTOMATED) 2021-11-01 17:37:00 Aida Shah [facility] POCT GLUCOSE (AUTOMATED) 2021-11-01 13:40:00 [facility]) 2021-11-01 01:10:00 Aida Shah [facility] POCT GLUCOSE (AUTOMATED) 2021-10-31 22:28:00 [facility]SE (AUTOMATED) 2021-10-31 17:29:00 Martha Drkae [facility] TROPONIN I 2021-10-31 16:25:00 Alexandra Hdz [facility] TRANSTHORACIC ECHO (TTE) 2021-10-31 15:53:00 [facility]TE W/ CONTRAST [facility] POCT GLUCOSE (AUTOMATED) 2021-10-31 13:39:00 Martha Drake Un [facility] TROPONIN I 2021-10-31 10:08:00 [facility] BASIC METABOLIC PANEL 2021-10-31 10:08:00 [facility] (NA, K, CL, CO2, GLUCOSE, Medica l Branch BUN, CREATININE, CA) LIPID PANEL ([id number])(TOTAL 2021-10-31 10:08:00 [facility]dz [facility] CHOLESTEROL, [facility] TRIGLYCERIDES, HDL) CBC WITH DIFF 2021-10-31 10:08[facility] 2021-10-31 10:[facility] N-[facility]MINAL [facility]-BNP 2021-10-31 10:08:00 Alexandra Hdz [facility] TROPONIN I 2021-10-31 06:17:00 [facility]ST 1 VW 2021-10-31 01:30:56 Martha Drake [facility] LIPASE 2021-10-31 01:25:00 Martha Drake [facility] TROPONIN I 2021-10-31 01:25:00 Martha Drake [facility] COMP. METABOLIC PANEL 2021-10-31 01:25:00 Martha [facility] ([id number][facility] CBC WITH DIFF 2021-10-31 01:25:00 Martha Drake [facility] GLYCOSYLATED HEMOGLOBIN 2021-10-31 01:25:00 [facility] PROTHROMBIN TIME / INR 2021-10-31 01:25:00 Martha Drake [facility] ACTIVATED PARTIAL 2021-10-31 01:25:00 Martha Drake [facility] N-TERMINAL PRO-BNP 2021-10-31 01:25:00 Martha Drake [facility] COVID-19 (ID NOW RAPID 2021-10-31 01:25:00 Martha Drake [facility] TESTING) Medical Branch LAB ONLY COVID 2021-10-31 01:25:00 Martha Drake [facility] INTERPRETATION [facility] HB ECG ROUTINE & RHYTHM 2021-10-31 01:20:03 Martha Drake [facility] STRIP [facility] URINALYSIS 2021-04-25 21:01:00 Nallely Zhao [facility] XR LUMBAR SPINE 2 VW 2021-04-25 18:41:00 Nallely Zhao [facility] XR HIPS 2 VW LEFT 2021-04-25 18:41:00 Nallely Zhao [facility] CONSENT/REFUSAL FOR 2021-04-25 15:43:06 Doctor [place]ERV[facility] SP[facility] WO 2020-06-26 09:35:01 NandiniscMartha [facility] CONTRAST [facility] CT LUMBAR SPINE WO 2020-06-26 09:35:01 [facility] THORACIC SPINE WO 2020-06-26 09:35:01 [facility] UNILATERAL DUPLEX SCAN OF 2020-05-24 14:53:40 [facility] BY [facility] Medical B ranch XR ANKLE 3+ VW LEFT 2020-05-24 13:22:26 Charanjit Heck [facility] HEPATIC FUNCTION PANEL 2020-05-24 13:13:00 Charanjit [facility] ([id number]) (ALB,T.PRO,BILI Medical Branch T,BU/BC,ALT,AST,ALK PHOS) BASIC METABOLIC PANEL 2020-05-24 13:13:00 Charanjit Heck [facility] (NA, K, CL, CO2, GLUCOSE, Medica l Branch BUN, CREATININE, CA) CBC WITH DIFFERENTIAL 2020-05-24 13:13:00 Charanjit Heck [facility] PROTHROMBIN TIME / INR 2020-05-24 13:13:00 Charanjit Heck [facility] ACTIVATED PARTIAL 2020-05-24 13:13:00 [facility] NOTICE OF PRIVACY 2020-05-24 11:38:26 Doctor Blaise, [facility] PRACTICES [facility] CONSENT/REFUSAL FOR 2020-05-24 11:35:52 Doctor Blaise[facility] POCT GLUCOSE (AUTOMATED) 2020-03-23 22:32:00 CharismaLuanazra Horn [facility] POCT GLUCOSE (AUTOMATED) 2020-03-23 18:07:00 Jamel Flores Justina [facility] POCT GLUCOSE (AUTOMATED) 2020-03-23 14:57:00 Jamel Flores [facility] ECHO ROUTINE W/DOPPLER 2020-03-23 13:33:57 Tereza Cano [facility] EKG-12 LEAD 2020-03-23 12:56:59 Charisma [facility] MAGNESIUM 2020-03-23 11:15:00 Jerome [facility] TROPONIN I 2020-03-23 11:15:00 [facility] BASIC METABOLIC PANEL 2020-03-23 11:15:00 Hannah CanoFormerly [facility] (NA, K, CL, CO2, GLUCOSE, Medica l Branch BUN, CREATININE, CA) PROTHROMBIN TIME / INR 2020-03-23 11:15:00 Tereza Cano [facility] ACTIVATED PARTIAL 2020-03-23 11:15:[address] [facility] EKG-12 LEAD 2020-03-23 07:51:19 [facility] 2020-03-23 05:55:00 [facility] 2020-03-23 05:55:00 [facility] BASIC METABOLIC PANEL 2020-03-23 05:55:00 Jerome [facility] (NA, K, CL, CO2, GLUCOSE, Medica l Branch BUN, CREATININE, CA) LIPID PANEL ([id number])(TOTAL 2020-03-23 05:55:00 Tereza Cano [facility] TRIGLYCERIDES, HDL) PROTHROMBIN TIME / INR 2020-03-23 02:55:00 Sallie Eckert [facility] ACTIVATED PARTIAL 2020-03-23 02:55:[address] [facility] XR CHEST 2 VW 2020-03-23 01:52:37 Danielle [facility] CORONAVIRUS COVID-19 2020-03-23 00:50:00 Esteban Singletary [facility] FERRITIN SERUM 2020-03-22 23:36:00 Jerome [facility] TROPONIN I 2020-03-22 23:36:00 Danielle [facility] COMP. METABOLIC PANEL 2020-03-22 23:36:00 Esteban Singletary [facility] ([id number]) [facility] IRON PANEL 2020-03-22 23:36:00 Jerome [facility] CBC WITH DIFFERENTIAL 2020-03-22 23:36:00 Danielle [facility] N-TERMINAL PRO-BNP 2020-03-22 23:36:00 Esteban Singletary [facility] EKG-12 LEAD 2020-03-22 23:08:53 Danielle [facility] EKG-12 LEAD 2020-03-22 23:08:15 Danielle [facility] XR CHEST 1 VW 2020-03-21 20:42:35 Myles Harry [facility] LACTIC ACID WHOLE BLOOD 2020-03-21 20:38:00 Myles Harry [facility] LIPASE 2020-03-21 20:19:00 Myles Harry [facility] TROPONIN I 2020-03-21 20:19:00 Myles Harry [facility] COMP. METABOLIC PANEL 2020-03-21 20:19:00 Myles Harry [facility] ([id number]) [facility] PROTHROMBIN TIME / INR 2020-03-21 20:19:00 Myles Harry [facility] N-TERMINAL PRO-BNP 2020-03-21 20:19:00 Myles Harry [facility] CORONAVIRUS COVID-19 2020-03-21 20:19:00 Myles Harry [facility] EKG-12 LEAD 2020-03-21 20:11:28 Myles Harry [facility] POCT GLUCOSE (AUTOMATED) 2020-03-07 20:56:00 Julio CesarSarah [facility] POCT GLUCOSE (AUTOMATED) 2020-03-07 15:34:00 Julio CesarSarah [facility] POCT GLUCOSE (AUTOMATED) 2020-03-07 12:56:00 Julio C[address] [facility] URIC ACID 2020-03-07 10:14:00 Holland Garza [facility] TROPONIN I 2020-03-07 10:14:00 Steven [facility] BASIC METABOLIC PANEL 2020-03-07 10:14:00 Julio Cesar [facility] (NA, K, CL, CO2, GLUCOSE, Medica l Branch BUN, CREATININE, CA) CBC WITH DIFFERENTIAL 2020-03-07 10:14:00 Julio Cesar [facility] N-TERMINAL PRO-BNP 2020-03-07 10:14:00 Lulu Harris [facility] POCT GLUCOSE (AUTOMATED) 2020-03-06 21:16:00 [facility] POCT GLUCOSE (AUTOMATED) 2020-03-06 16:10:00 Julio Cesar [facility] POCT GLUCOSE (AUTOMATED) 2020-03-06 12:38:00 Julio Cesar [facility] TROPONIN I 2020-03-06 08:51:00 Steven [facility] BASIC METABOLIC PANEL 2020-03-06 08:51:00 Julio Cesar [facility] (NA, K, CL, CO2, GLUCOSE, Medica l Branch BUN, CREATININE, CA) CBC WITH DIFFERENTIAL 2020-03-06 08:51:00 [facility]SE ([facility]OMATED) 2020-03-06 01:16:00 Julio Cesar [facility] TROPONIN I 2020-03-05 23:25:00 Julio Cesar [facility] POCT GLUCOSE (AUTOMATED) 2020-03-05 21:14:00 Julio Cesar [facility] POCT GLUCOSE (AUTOMATED) 2020-03-05 16:39:00 Ramónunc health [facility] POCT GLUCOSE (AUTOMATED) 2020-03-05 12:47:00 Julio Cesar [facility] TROPONIN I 2020-03-05 09:50:00 [facility] BASIC METABOLIC PANEL 2020-03-05 09:50:00 [facility] (NA, K, CL, CO2, GLUCOSE, Medica l Branch BUN, CREATININE, CA) CBC WITH DIFFERENTIAL 2020-03-05 09:50:00 [facility] EKG-12 LEAD 2020-03-05 00:36:54 [facility] 2020-03-05 00:31:03 [facility] CORONAVIRUS COVID-19 2020-03-05 00:03:00 Charanjit Heck [facility] XR CHEST 1 VW 2020-03-04 23:58:59 Charanjit Heck [facility] LIPASE 2020-03-04 23:29:00 Umang Charanjit [facility] TROPONIN I 2020-03-04 23:29:00 [facility] Hospital[facility] HEPATIC FUNCTION PANEL 2020-03-04 23:29:00 Char[facility]jit [facility] ([id number]) (ALB,T.PRO,BILI [facility] T,BU/BC,ALT,AST,ALK PHOS) BASIC METABOLIC PANEL 2020-03-04 23:29:00 Charanjit Heck [facility] (NA, K, CL, CO2, GLUCOSE, Medica l Branch BUN, CREATININE, CA) CBC WITH DIFFERENTIAL 2020-03-04 23:29:00 Charanjit Heck [facility] PROTHROMBIN TIME / INR 2020-03-04 23:29:00 Charanjit Heck [facility] ACTIVATED PARTIAL 2020-03-04 23:29:00 [facility] N-TERMINAL PRO-BNP 2020-03-04 23:29:00 Umang Charanjit [facility] EKG-12 LEAD 2020-03-04 23:15:42 Umang [facility] EKG-12 LEAD 2020-03-04 23:10:23 Umang [facility] EMERGENCY DEPARTMENT 2020-03-04 05:01:00 Doctor Unassigned, [facility] DOCUMENTS [facility] POCT GLUCOSE (AUTOMATED) 2020-03-02 15:52:00 Lulu Harris [facility] POCT GLUCOSE (AUTOMATED) 2020-03-02 12:39:00 Lulu Harris [facility] MAGNESIUM 2020-03-02 08:57:00 Carolyn [facility] BASIC METABOLIC PANEL 2020-03-02 08:57:00 Carolyn alek [facility] (NA, K, CL, CO2, GLUCOSE, Medica l Branch BUN, CREATININE, CA) N-TERMINAL PRO-BNP 2020-03-02 08:57:00 Ivory Leon [facility] POCT GLUCOSE (AUTOMATED) 2020-03-01 20:39:00 Lulu Harris [facility] MAGNESIUM 2020-03-01 08:43:00 Lulu Harris [facility] TROPONIN I 2020-03-01 08:43:00 Carolyn alek [facility] BASIC METABOLIC PANEL 2020-03-01 08:43:00 Lulu Harris [facility] (NA, K, CL, CO2, GLUCOSE, Medica l Branch BUN, CREATININE, CA) CBC WITH DIFFERENTIAL 2020-03-01 08:43:00 Lulu Harris [facility] N-TERMINAL PRO-BNP 2020-03-01 08:43:00 Carolyn alek [facility] VITAMIN B12, LEVEL 2020-03-01 03:49:00 Carolyn [facility] FOLATE 2020-03-01 03:49:00 Carolyn alek [facility] SEDIMENTATION RATE 2020-03-01 03:49:00 Carolyn [facility] POCT GLUCOSE (AUTOMATED) 2020-03-01 03:39:00 Lulu Harris [facility] PHOSPHORUS 2020-03-01 02:28:00 Lulu Harris [facility] URIC ACID 2020-03-01 02:28:00 Carolyn [facility] TROPONIN I 2020-03-01 02:28:00 Carolyn [facility] HEPATIC FUNCTION PANEL 2020-03-01 02:28:00 Ivory Leon [facility] ([id number]) ([facility] T,BU/BC,ALT,AST,ALK PHOS) PROTHROMBIN TIME / INR 2020-03-01 02:28:00 Carolyn alek [facility] N-TERMINAL PRO-BNP 2020-03-01 02:28:00 Lulu Harris [facility] PROCALCITONIN 2020-03-01 02:28:00 Carolyn [facility] EKG-12 LEAD 2020-03-01 01:54:29 Carolyn [facility] EKG-12 LEAD 2020-02-29 23:16:21 Bobo Urrutia [facility] XR CHEST 1 VW COVID 2020-02-29 23:14:25 Bobo Urrutia [facility] EKG-12 LEAD 2020-02-29 23:13:50 Bobo Urrutia [facility] LACTIC ACID WHOLE BLOOD 2020-02-29 22:21:00 Bobo Urrutia [facility] CORONAVIRUS COVID-19 2020-02-29 22:20:00 Bobo Urrutia [facility] CREATINE KINASE 2020-02-29 22:14:00 Carolyn [facility] URIC ACID 2020-02-29 22:14:00 Carolyn [facility] LIPASE 2020-02-29 22:14:00 Bobo Urrutia [facility] MAGNESIUM 2020-02-29 22:14:00 Carolyn [facility] TROPONIN I 2020-02-29 22:14:00 Bobo Urrutia [facility] THYROID STIMULATING 2020-02-29 22:14:00 Carolyn alek [facility] HORMONE [facility] BASIC METABOLIC PANEL 2020-02-29 22:14:00 Bobo Urrutia [facility] (NA, K, CL, CO2, GLUCOSE, Medica l Branch BUN, CREATININE, CA) CBC WITH DIFFERENTIAL 2020-02-29 22:14:00 Bobo Urrutia [facility] GLYCOSYLATED HEMOGLOBIN 2020-02-29 22:14:00 [facility] N-TERMINAL PRO-BNP 2020-02-29 22:14:00 Carolyn [facility] EKG-12 LEAD 2020-02-29 21:59:12 Renan [facility] EKG-12 LEAD 2020-02-29 21:48:49 Bobo Urrutia [facility] EMERGENCY DEPARTMENT 2020-02-29 05:01:00 Doctor Unassigned, [facility] DOCUMENTS [facility] POCT GLUCOSE (AUTOMATED) 2020-01-17 18:15:00 Julio Cesar [facility] TROPONIN I 2020-01-17 16:31:00 Julio Cesar [facility] ACTIVATED PARTIAL 2020-01-17 16:31:00 Carolyn [facility] POCT GLUCOSE (AUTOMATED) 2020-01-17 11:56:00 [facility]io [facility] TROPONIN I 2020-01-17 09:52:00 Julio Cesar [facility] BASIC METABOLIC PANEL 2020-01-17 09:52:00 Julio Cesar [facility] (NA, K, CL, CO2, GLUCOSE, Medica l Branch BUN, CREATININE, CA) CBC WITH DIFFERENTIAL 2020-01-17 09:52:00 Julio Cesar [facility] ACTIVATED PARTIAL 2020-01-17 09:52:00 Julio Cesar [facility] POCT GLUCOSE (AUTOMATED) 2020-01-16 23:59:00 Julio Cesar [facility] EKG-12 LEAD 2020-01-16 22:15:50 [facility]OP[facility]IN I 2020-01-16 20:04:00 [facility] ACTIVATED PARTIAL 2020-01-16 20:04:00 Kael [facility] POCT GLUCOSE (AUTOMATED) 2020-01-16 17:05:00 [facility]SE (AUTOMATED) 2020-01-16 13:38:00 [facility] TROPONIN I 2020-01-16 11:11:00 [facility] LIPID PANEL ([id number])(TOTAL 2020-01-16 11:11:00 [facility] systemsros[facility]io[facility] TRIGLYCERIDES, HDL) ACTIVATED PARTIAL 2020-01-16 11:11:00 [facility] 2020-01-16 05:48:18 Umang [facility] XR CHEST 1 VW 2020-01-16 04:46:44 [facility] 2020-01-16 04:38:00 [facility] HEPATIC FUNCTION PANEL 2020-01-16 04:38:00 Charanjit [facility] ([id number]) (ALB,T.PRO,BILI Medical Branch T,BU/BC,ALT,AST,ALK PHOS) BASIC METABOLIC PANEL 2020-01-16 04:38:00 Charanjit Heck [facility] (NA, K, CL, CO2, GLUCOSE, Medica l Branch BUN, CREATININE, CA) CBC WITH DIFFERENTIAL 2020-01-16 04:38:00 Charanjit Hekc [facility] GLYCOSYLATED HEMOGLOBIN 2020-01-16 04:38:00 [facility] PROTHROMBIN TIME / INR 2020-01-16 04:38:00 Charanjit Heck [facility] ACTIVATED PARTIAL 2020-01-16 04:38:00 Char[facility]jit [facility] THRMPLAS [facility] N-TERMINAL PRO-BNP 2020-01-16 04:38:00 Charanjit Heck [facility] EKG-12 LEAD 2020-01-16 04:37:48 Umang Charanjit [facility] EKG-12 LEAD 2020-01-16 04:35:35 Umang Charanjit [facility] AUTHORIZATION FOR RELEASE 2019-07-12 05:01:00 Doctor Unassigned, [facility] Encounters Start End Encounter Admission Attending Care Care Encounter Source Date/Time Date/Time Type Type Clinicians Facility Department ID 2022-03-06 Outpatient [facility] [id number] [place] 08:51:10 [id number] [facility] 2021-12-16 Inpatient ELIZA [facility] [id number] [facility] 11:30:00 Ijm [facility] 2021-12-16 Outpatient [facility] [id number] Common 09:19:01 [facility] 2021-12-11 Outpatient Millender, STLMLC [facility] [id number] Common 14:38:21 Anneliese [facility] 2021-12-11 Outpatient Millender, STLMLC [facility] [id number] Common 11:50:18 Anneliese 99324 [facility] 2021-09-[address] [facility] [id number] Univers 00:23:34 ity [facility] 2021-09-[address] [facility] [id number] Univers 11:42:35 ity [facility] 2021-09-[address] [facility] [id number] Univers 05:40:48 [facility]22-[facility]-05 2022-03-10 Inpatient U BLADE [facility] CAR 2109 [facility] 06:12:00 22:30:00 BRODIE 2022-03-01 2022-03-01 Emergency X LAUREN [facility] ERT [id number] Univers 06:52:00 12:04:00 ANGELIKA zuluagay [facility] 2022-03-012022-03-01 Emergency [facility] 1.2.840.114 [id number] [facility] 06:52:00 12:04:00 Angelika RAMSEY 350.1.13.10 it[place] [phone] [facility] 084 Branch 2021-12-25 2021-12-25 Inpatient ATTAR, [facility] [id number] [place] 00:00:00 00:00:00 M[address]AM[address] 2021-12-19 2021-12-25 Inpatient LAUREN, [facility] [id number] [place] 00:00:00 00:00:00 JAYSON [address] 2021-12-24 2021-12-24 ambulatory STLMLC [facility] [id number] Common 00:00:00 00:00:00 [facility] 2021-12-20 2021-12-20 Inpatient ATTAR, [facility] [id number] [place] 00:00:00 00:00:00 MOHAMMED [address] 2021-12-17 2021-12-17 ambulatory STLMLC ST[facility] [id number] Common 00:00:00 00:00:00 [facility] 2021-12-16 2021-12-16 ambulatory STLMLC ST[facility] [id number] Common 00:00:00 00:00:00 [facility] 2021-11-19 2021-11-19 Orders Doctor JONES 1.2.840.114 [id number] Univers 00:00:00 00:00:00 Only Unassigned, ASHLEIGH 350.1.13.[address] [facility] 4.2.7.2.686 [place] [phone] [facility] 009 Branch 2021-11-04 2021-11-04 Transition SHAREE Maria 1.2.840.114 [id number] Univers 00:00:00 00:00:00 of Care Supa GREWAL 350.1.13.10 [place] [id number] [facility] 403 [address] 2021-10-30 2021-11-02 Inpatient X ALYSSA [facility] [id number] Univers 19:14:00 18:15:00 AIDA ity of [facility] 2021-10-30 2021-11-02 [facility] Martha Drake [facility] 1.2.840. 114 [id number] Univers 19:14:00 18:15:00 Encounter Aida Shah 350.1.13.10 ity [facility] 4.2.7.2.686 [facility] [phone] [facility] 081 Branch 2021-05-17 2021-05-17 Letter PcpROBERT 1.2.840.114 [id number] Univers 00:00:00 00:00:00 (Out) Patient ASHLEIGH 350.1.13.10 it y of [facility][1] 4.2.7.2.686 [place] Have A [id number] [facility] 019 Branch 2021-04-25 2021-04-25 Emergency Cece, TRAUMA 1.2.246.056 [id number] Univers 10:43:00 17:38:00 [facility] 350.1.13.10 i ty of [place] 4.2.7.2.686 [facility] [id number] [facility] 014 Branch 2020-06-26 2020-06-26 Emergency [facility] 1.2.748.352 [id number] 03:50:00 06:45:00 Martha Ramsey 350.1.13.10 [place] 4.2.7.2.686 [place] [phone] 08 2020-06-26 2020-06-26 [facility] 1.2.125.896 [id number] Univers 03:50:00 06:45:00 Martha Ramsey 350.1.13.10 ity of [place] 4.2.7.2.686 [facility] [phone] [facility] 084 Branch 2020-05-24 2020-05-24 [facility] 1.2.357.887 [id number] 06:40:47 10:54:00 Charanjit Ramsey 350.1.13.10 [place] 4.2.7.2.686 [place] [id number] [facility] 2020-05-24 2020-05-24 Emergency Umang [facility] 1.2.371.909 [id number] Univers 06:40:47 10:54:00 Charanjit Ramsey 350.1.13.10 i ty of [place] [phone] [address] 2020-03-29 2020-03-29 Letter Jamel Flores 1.2.840.114 [id number] 00:00:00 00:00:00 (Out) T Ashleigh 350.1.13.10 [facility] 4.2.7.2.686 [id number] [facility] 2020-03-29 2020-03-29 Letter Jamel Flores 1.2.840.114 [id number] Univers 00:00:00 00:00:00 (Out) T Ashleigh 350.1.13.10 it y of [facility] 4.2.7.2.686 [place] [phone] [address] 2020-03-26 2020-03-26 Transition Sharee George 1.2.840.114 [id number] 00:00:00 00:00:00 of Care Sherrell Grewal 350.1.13.10 [place] 4.2.7.2.686 [id number] [facility] 2020-03-26 2020-03-26 Transition Sharee George 1.2.840.114 [id number] Univers 00:00:00 00:00:00 of Care Sherrell Grewal 350.1.13.10 it y of [place]2.7.2.686 [place] [id number] [facility] [address] [place] 2020-03-22 2020-03-23 Emergency Sallie Eckert Maki 1.2.840. 114 [id number] Univers 18:02:47 21:55:00 Jamel Flores 350.1.13.10 ity of [facility] 4.2.7.2.686 [place] [phone] [address] 2020-03-22 2020-03-23 Outpatient X JAMEL FLORES [facility] [id number] Univers 18:02:47 21:55:00 ity of [facility] 2020-03-21 2020-03-21 Emergency Kamryn, [facility] 1.2.840.114 [id number] Univers 15:02:08 17:16:00 Mylesazra Ramsey 350.1.13.10 i ty of [place] 4.2.7.2.686 [facility] [phone] [address] 2020-03-21 2020-03-21 Emergency X KAMRYN, [facility] ERT [id number] Univers 15:02:08 17:16:00 MYLES ity of [facility] 2020-03-13 2020-03-13 Outpatient Raju_P [facility] [id number] [place] 05:24:00 05:24:00 0428 Medical [facility] 2020-03-08 2020-03-08 Transition Sharee Cool 1.2.840.114 [id number] Univers 00:00:00 00:00:00 of Care Prema Grewal 350.1.13.10 i ty [place] [id number] [address] 2020-03-04 2020-03-07 [facility] HeckCharanjit [facility] 1.2.840.1 14 [id number] Univers 18:01:05 18:00:00 Encounter AlicerosalioSarah 350.1.13.10 ity of [place] 4.2.7.2.686 [facility] [phone] [address] 2020-03-04 2020-03-07 Inpatient X JULIO CESAR [facility] ZEFERINO [id number] Univers 18:01:05 18:00:00 SARAH itazra of [facility] 2020-03-03 2020-03-03 Transition Sharee Silva 1.2.840.114 [id number] Univers 00:00:00 00:00:00 of Care Isatu Grewal 350.1.13.10 it y [place] [id number] [address] 2020-02-29 2020-03-02 [facility] Bobo Urrutia [facility] 1.2.840.11 [id number] Univers 16:53:09 12:18:00 Encounter Lulu Harris 350.1.13.10 ity of [place] [phone] [place] 779911 [place] 2020-02-29 2020-03-02 Inpatient X STEVEN [facility] ZEFERINO [id number] Univers 16:53:09 12:18:00 LULU leon [facility] 2020-02-15 2020-02-15 [facility] [id number] Univers 11:30:00 11:30:00 ROSEMARY leon [facility] 2020-02-15 2020-02-15 [facility] 1.2.840.114 [id number] Univers 08:13:42 08:43:42 ne Visit Rosemary Ramsey 350.1.13.10 [place] [phone] [place] dical nal [address] 2020-01-18 2020-01-18 Transition Sharee Harvey 1.2.840.114 [id number] Univers 00:00:00 00:00:00 of Care Ana M Grewal 350.1.13.10 it y of [place].2.[place] [id number] [facility] 403 [address] 2020-01-15 2020-01-17 [facility] Charanjit Heck [facility] 1.2.840.1 14 [id number] Univers 22:33:37 16:58:00 Encounter Sarah Adorno 350.1.13.10 ity of [place] [id number] [address] 2020-01-15 2020-01-17 Outpatient X JULIO CESAR [facility] ZEFERINO [id number] Univers 22:33:37 16:58:00 SARAH leon [facility] 2019-10-07 2019-10-07 Outpatient Ko Gant [id number] Common 10:48:00 10:48:00 [facility] it Road [facility] 2019-10-05 2019-10-05 Outpatient Ko Gant [id number] Common 16:06:00 16:06:00 [facility] [address] [facility] 2019-07-27 2019-07-27 Refill Larsen, ROSMERYCESAR 1.2.840.114 [id number] Univers 00:00:00 00:00:00 Rosemary Ramsey 350.1.13.10 i ty of [place] [phone] [place] dical nal [address] [facility] 2019-07-12 2019-07-12 [facility] [id number] Common 16:24:00 16:24:00 [facility] [address] [facility] 2019-07-12 2019-07-12 Orders Doctor JONES 1.2.840.114 [id number] Univers 00:00:00 00:00:00 Only Unassigned, ASHLEIGH 350.1.13.10 ity of [place] [facility] 4.2.7.2.686 [place] [phone] [address] 2019-07-06 2019-07-06 [facility] [id number] Common 14:00:00 14:00:00 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 (test code = 81416-9) Whether the patient has symptoms related to condition of interest (test code = 63806-0) Patient was hospitalized because of this condition (test code = 49395-2) Whether the patient was admitted to intensive care unit (ICU) for condition of interest (test code = 89615-4) Whether patient resides in a congregate care setting (test code = 36405-3) POCT GLUCOSE (AUTOMATED)2021-11-02 22:57:12 Test Item Value Reference Range Interpretation Comments POCT GLU (test code = 7961440530) 224 mg/dL 70-110 H Lab Interpretation (test code = Abnormal 62389-8) [facility] LEAD ROUTINE [id number] 22:37:57 Test Item Value Reference Range Interpretation Comments Lab Interpretation (test code = Abnormal 67157-6) [facility] GLUCOSE (AUTOMATED)2021-11-02 17:43:02 Test Item Value Reference Range Interpretation Comments POCT GLU (test code = 2236926852) 264 mg/dL 70-110 H Lab Interpretation (test code = Abnormal 14044-8) [facility] [id number] 15:07:47 Test Item Value Reference Interpretation Comments Range TROPONIN I (test 0.064 ng/mL See_Comment H [Automated code = 7097329937) message] The system which generated this result [...] biotin. Lab Interpretation Abnormal (test code = 88112-4) [facility] [id number] 15:04:26 Test Item Value Reference Range Interpretation Comments NT-proBNP (test code 800 pg/mL See_Comment H [Autom ated = 8326344968) message] The system which generated this result transmitted reference range : <=450. The reference range was not used to interpret this result as normal/abnormal . ALYSSA (test code = ALYSSA) Biotin has been reported to cause a negative bias, interpret results relative to patient's use of biotin. Lab Interpretation Abnormal (test code = 96107-4) [facility] GLUCOSE (AUTOMATED)2021-11-02 13:36:38 Test Item Value Reference Range Interpretation Comments POCT GLU (test code = 9683932485) 185 mg/dL 70-110 H Lab Interpretation (test code = Abnormal 63514-7) [facility] METABOLIC PANEL (NA, K, CL, CO2, GLUCOSE, BUN, CREATININE, CA)2021-11-02 10:26:43 Test Item Value Reference Range Interpretation Comments NA (test code = 136 mmol/L 135-145 7937524124) K (test code = 4.0 mmol/L 3.5-5.0 5578412828) CL (test code = 99 mmol/L 98-108 5144106274) CO2 TOTAL (test code = 27 mmol/L 23-31 6468357929) AGAP (test code = 2-16 7538771598) BUN (test code = 30 mg/dL 7-23 H 7814527848) GLUCOSE (test code = 165 mg/dL 70-110 H 6283453834) CREATININE (test code = 1.42 mg/dL 0.60-1.25 H 3897695151) CALCIUM (test code = 9.5 mg/dL 8.6-10.6 2157531256) eGFR (test code = mL/min/1.73m2 0266489530) ALYSSA (test code = ALYSSA) Association of [...] tests). Lab Interpretation Abnormal (test code = 62098-4) [facility] WITH [id number] 10:01:58 Test Item Value Reference Range Interpretation [...] RDW-SD (test code = 39.8 fL 38.5-51.6 53377-8) RDW-CV (test code = 11.5 % 12.1-15.4 L 788-0) PLT (test code = See_Comment [Automated 777-3) message] The sy stem which generated this result transmitted reference range : 150 - 328 10*3/ ?L. The reference r corey was not used to interpret this result as normal/abnormal . MPV (test code = 10.5 fL 9.8-13.0 91630-8) NRBC/100 WBC (test See_Comment [Automat ed code = 4906564930) message] The system which generated this result transmitted reference range : 0.0 - 10.0 /100 WBCs. The refer ence range was not u sed to interpret th is result as normal/abnormal . NRBC x10^3 (test code <0.01 See_Comment [Auto mated = 3190682525) message] The s ystem which generated this result transmitted reference range : 10*3/?L. The reference range was not used to interpret this result as normal/abnormal . GRAN MAT (NEUT) % 59.3 % (test code = 770-8) IMM GRAN % (test code 0.30 % = 0322432133) LYMPH % (test code = 25.0 % 736-9) MONO % (test code = 10.7 % 5905-5) EOS % (test code = 4.1 % 713-8) BASO % (test code = 0.6 % 706-2) GRAN MAT x10^3(ANC) 4.19 10*3/uL 1.99-6.95 (test code = 8725372799) IMM GRAN x10^3 (test <0.03 0.00-0.06 code = 6870483932) LYMPH x10^3 (test code 1.77 10*3/uL 1.09-3.23 = 731-0) MONO x10^3 (test code 0.76 10*3/uL 0.36-1.02 = 742-7) EOS x10^3 (test code = 0.29 10*3/uL 0.06-0.53 711-2) BASO x10^3 (test code 0.04 10*3/uL 0.01-0.09 = 704-7) Lab Interpretation Abnormal (test code = 77402-4) [facility] GLUCOSE (AUTOMATED)2021-11-02 01:29:56 Test Item Value Reference Range Interpretation Comments POCT GLU (test code = 9319662403) 167 mg/dL 70-110 H Lab Interpretation (test code = Abnormal 78178-9) [facility] GLUCOSE (AUTOMATED)2021-11-01 17:40:19 Test Item Value Reference Range Interpretation Comments POCT GLU (test code = 7163120555) 193 mg/dL 70-110 H Lab Interpretation (test code = Abnormal 71191-3) [facility] GLUCOSE (AUTOMATED)2021-11-01 13:44:28 Test Item Value Reference Range Interpretation Comments POCT GLU (test code = 2154156329) 200 mg/dL 70-110 H Lab Interpretation (test code = Abnormal 76722-1) [facility] GLUCOSE (AUTOMATED)2021-11-01 01:38:43 Test Item Value Reference Range Interpretation Comments POCT GLU (test code = 8678714367) 177 mg/dL 70-110 H Lab Interpretation (test code = Abnormal 30119-0) [facility] GLUCOSE (AUTOMATED)2021-10-31 22:39:43 Test Item Value Reference Range Interpretation Comments POCT GLU (test code = 8022017365) 174 mg/dL 70-110 H Lab Interpretation (test code = Abnormal 44998-1) [facility] GLUCOSE (AUTOMATED)2021-10-31 17:40:22 Test Item Value Reference Range Interpretation Comments POCT GLU (test code = 5567038575) 224 mg/dL 70-110 H Lab Interpretation (test code = Abnormal 08580-4) [facility] [id number] 17:14:58 Test Item Value Reference Interpretation Comments Range TROPONIN I (test 0.080 ng/mL See_Comment H [Automated code = 0582374087) message] The system which generated this result [...] biotin. Lab Interpretation Abnormal (test code = 74574-9) [facility]wood[facility]AL [id number] 15:14:03 Test Item Value Reference Range Interpretation Comments NT-proBNP (test code 474 pg/mL See_Comment H [Autom ated = 6354747376) message] The system which generated this result transmitted reference range : <=450. The reference range was not used to interpret this result as normal/abnormal . ALYSSA (test code = ALYSSA) Biotin has been reported to cause a negative bias, interpret results relative to patient's use of biotin. Lab Interpretation Abnormal (test code = 76355-0) [facility]woodLIPID PANEL (87582)(TOTAL CHOLESTEROL, TRIGLYCERIDES, HDL)2021-10-31 15:05:19 Test Item Value Reference Range Interpretation Comments CHOL (test code = 101 mg/dL 120-200 L 0459891669) HDL (test code = 36 mg/dL >40 L 1992336915) HDLC RATIO (test code = See_Comment [Au tomated message] 5733288581) The system [employer] generated this result transmit diamante reference range : <=5.0. The refe rence range was not u sed to interpret th is result as normal/abnormal . TRIG (test code = 143 mg/dL 30-170 6212810740) LDL CHOL (test code = 36 mg/dL See_Comment [Auto mated message] 23076-5) The system [employer] generated this result transmit diamante reference range : <=160. The refe rence range was not u sed to interpret th is result as normal/abnormal . VLDL (test code = 29 mg/dL 5-60 5717433557) Lab Interpretation (test Abnormal code = 72248-7) [facility]2021-10-31 13:44:00 Test Item Value Reference Range Interpretation Comments POCT GLU (test code = 6123371936) 150 mg/dL 70-110 H Lab Interpretation (test code = Abnormal 64498-9) [facility]wood[facility] with [id number] 11:13:14 Test Item Value Reference Range Interpretation Comments WBC (test code = See_Comment [Automated 0590-2) message] The sy stem which generated this [...] RDW-SD (test code = 39.9 fL 38.5-51.6 58707-4) RDW-CV (test code = 11.8 % 12.1-15.4 L 788-0) PLT (test code = See_Comment [Automated 777-3) message] The sy stem which generated this result transmitted reference range : 150 - 328 10*3/ ?L. The reference r corey was not used to interpret this result as normal/abnormal . MPV (test code = 11.0 fL 9.8-13.0 25168-6) NRBC/100 WBC (test See_Comment [Automat ed code = 0705162315) message] The system which generated this result transmitted reference range : 0.0 - 10.0 /100 WBCs. The refer ence range was not u sed to interpret th is result as normal/abnormal . NRBC x10^3 (test code <0.01 See_Comment [Auto mated = 2938741162) message] The s ystem which generated this result transmitted reference range : 10*3/?L. The reference range was not used to interpret this result as normal/abnormal . GRAN MAT (NEUT) % 64.3 % (test code = 770-8) IMM GRAN % (test code 0.30 % = 8266427090) LYMPH % (test code = 21.7 % 736-9) MONO % (test code = 10.0 % 5905-5) EOS % (test code = 3.1 % 713-8) BASO % (test code = 0.6 % 706-2) GRAN MAT x10^3(ANC) 4.35 10*3/uL 1.99-6.95 (test code = 3845922924) IMM GRAN x10^3 (test <0.03 0.00-0.06 code = 8859522776) LYMPH x10^3 (test code 1.47 10*3/uL 1.09-3.23 = 731-0) MONO x10^3 (test code 0.68 10*3/uL 0.36-1.02 = 742-7) EOS x10^3 (test code = 0.21 10*3/uL 0.06-0.53 711-2) BASO x10^3 (test code 0.04 10*3/uL 0.01-0.09 = 704-7) Lab Interpretation Abnormal (test code = 83301-9) [facility] [id number] 11:09:53 Test Item Value Reference Interpretation Comments Range TROPONIN I (test 0.101 ng/mL See_Comment H [Automated code = 4535601241) message] The system which generated this result [...] biotin. Lab Interpretation Abnormal (test code = 77325-6) [facility] Met[facility] (NA, K, CL, CO2, GLUCOSE, BUN, CREATININE, CA)2021-10-31 10:59:31 Test Item Value Reference Range Interpretation Comments NA (test code = 139 mmol/L 135-145 3481085467) K (test code = 4.1 mmol/L 3.5-5.0 4721890478) CL (test code = 103 mmol/L 98-108 2388123366) CO2 TOTAL (test code = 28 mmol/L 23-31 7638556193) AGAP (test code = 2-16 8044168182) BUN (test code = 43 mg/dL 7-23 H 2497339074) GLUCOSE (test code = 165 mg/dL 70-110 H 5143198412) CREATININE (test code = 1.68 mg/dL 0.60-1.25 H 2418061457) CALCIUM (test code = 9.6 mg/dL 8.6-10.6 9604384558) eGFR (test code = mL/min/1.73m2 7439891209) ALYSSA (test code = ALYSSA) Association of [...] tests). Lab Interpretation Abnormal (test code = 29733-1) [facility]wood[facility]cosylated Hemoglobin (A1C)2021-10-31 09:13:40 Test Item Value Reference Range Interpretation Comments HGB A1C (test code = 6.8 % 4.0-5.7 H 4548-4) ALYSSA (test code = ALYSSA) Reference RangesNormal: <5.7%Prediabetes: 5.7 - 6.4%Diabetes: > 6.5% Lab Interpretation (test Abnormal code = 96010-6) [facility] [id number] 06:48:18 Test Item Value Reference Interpretation Comments Range TROPONIN I (test 0.082 ng/mL See_Comment H [Automated code = 4121110969) message] The system which generated this result [...] biotin. Lab Interpretation Abnormal (test code = 08492-6) [facility] [id number] 02:09:48 Test Item Value Reference Interpretation Comments Range TROPONIN I (test 0.067 ng/mL See_Comment H [Automated code = 3262196763) message] The system which generated this result [...] biotin. Lab Interpretation Abnormal (test code = 39620-1) [facility]wood[facility]MIN[facility] [id number] 02:06:31 Test Item Value Reference Range Interpretation Comments NT-proBNP (test code 318 pg/mL See_Comment [Autom ated = 5684998959) message] The system which generated this result transmitted reference range : <=450. The reference range was not used to interpret this result as normal/abnormal . ALYSSA (test code = ALYSSA) Biotin has been reported to cause a negative bias, interpret results relative to patient's use of biotin. Lab Interpretation Normal (test code = 56859-7) [facility]woodCOMP. METABOLIC PANEL (40888)2021-10-31 01:58:28 Test Item Value Reference Range Interpretation Comments NA (test code = 137 mmol/L 135-145 7665588046) K (test code = 4.1 mmol/L 3.5-5.0 0810248598) CL (test code = 101 mmol/L 98-108 4098620654) CO2 TOTAL (test code = 26 mmol/L 23-31 7225253280) AGAP (test code = 2-16 7408957357) BUN (test code = 46 mg/dL 7-23 H 2140359116) GLUCOSE (test code = 213 mg/dL 70-110 H 6599503165) CREATININE (test code = 1.96 mg/dL 0.60-1.25 H 4887970910) TOTAL BILI (test code = 0.9 mg/dL 0.1-1.7 2338071447) CALCIUM (test code = 9.7 mg/dL 8.6-10.6 2250449174) T PROTEIN (test code = 7.0 g/dL 6.3-8.2 7129983735) ALBUMIN (test code = 4.3 g/dL 3.5-5.0 1710042305) ALK PHOS (test code = 58 U/L 34-122 3525621432) ALTv (test code = 20 U/L 5-50 1742-6) AST(SGOT) (test code = 27 U/L 13-40 4061738877) eGFR (test code = mL/min/1.73m2 8791984393) ALYSSA (test code = ALYSSA) Association of [...] tests). Lab Interpretation Abnormal (test code = 08161-2) [facility]woodLIPASE, [id number] 01:57:48 Test Item Value Reference Range Interpretation Comments LIPASE (test code = 8130516928) 330 U/L 0-220 H Lab Interpretation (test code = Abnormal 29645-7) [facility]woodaPTT2021-12-16 01:55:04 Test Item Value Reference Range Interpretation Comments APTT Patient (test See_Comment [Automat ed code = 3173-2) message] The system which generated this result transmitted reference range : 23 - 38 Seconds . The reference range was not used to interpr et this result as normal/abnormal . ALYSSA (test code = ALYSSA) The [facility] patient population mean normal value for aPTT is 30 seconds. Lab Interpretation Normal (test code = 49554-1) [facility] BrownwoodPROTHROMBIN TIME / [id number] 01:53:08 Test Item Value Reference Range Interpretation [...] tions. Lab Interpretation (test Normal code = 34779-2) [facility]woodCBC WITH [id number] 01:45:44 Test Item Value Reference Range Interpretation Comments WBC (test code = See_Comment [Automated 7790-2) message] The sy stem which generated this result transmitted reference range : 4.20 - 10.70 10*3/?L. The reference range was not used to interpret this result as normal/abnormal . RBC (test code = See_Comment L [Automated 9-8) message] The sy stem which generated this [...] RDW-SD (test code = 39.1 fL 38.5-51.6 67386-2) RDW-CV (test code = 11.6 % 12.1-15.4 L 788-0) PLT (test code = See_Comment [Automated 777-3) message] The sy stem which generated this result transmitted reference range : 150 - 328 10*3/ ?L. The reference r corey was not used to interpret this result as normal/abnormal . MPV (test code = 10.4 fL 9.8-13.0 89540-9) NRBC/100 WBC (test See_Comment [Automat ed code = 2162747625) message] The system which generated this result transmitted reference range : 0.0 - 10.0 /100 WBCs. The refer ence range was not u sed to interpret th is result as normal/abnormal . NRBC x10^3 (test code <0.01 See_Comment [Auto mated = 1306124476) message] The s ystem which generated this result transmitted reference range : 10*3/?L. The reference range was not used to interpret this result as normal/abnormal . GRAN MAT (NEUT) % 62.1 % (test code = 770-8) IMM GRAN % (test code 0.30 % = 5737544275) LYMPH % (test code = 23.4 % 736-9) MONO % (test code = 10.8 % 5905-5) EOS % (test code = 2.9 % 713-8) BASO % (test code = 0.5 % 706-2) GRAN MAT x10^3(ANC) 4.14 10*3/uL 1.99-6.95 (test code = 8502501417) IMM GRAN x10^3 (test <0.03 0.00-0.06 code = 9809165481) LYMPH x10^3 (test code 1.56 10*3/uL 1.09-3.23 = 731-0) MONO x10^3 (test code 0.72 10*3/uL 0.36-1.02 = 742-7) EOS x10^3 (test code = 0.19 10*3/uL 0.06-0.53 711-2) BASO x10^3 (test code 0.03 10*3/uL 0.01-0.09 = 704-7) Lab Interpretation Abnormal (test code = 19858-2) [facility] Test Item Value Reference Range Interpretation Comments APPEARANCE (test code = Clear Clear 2957588704) COLOR (test code = Yellow Yellow 4782513268) PH (test code = 4.8-8.0 4597672852) SP GRAVITY (test code = 1.003-1.030 4930489299) GLU U QUAL (test code = 50 mg/dL Normal A 9960663345) BLOOD (test code = Negative Negative INTERFERE NCE FROM 7134007218) ASCORBIC ACID M AY CAUSE FALSE NEG ATIVE RESULT KETONES (test code = Negative Negative 5067989626) PROTEIN (test code = Negative Negative 2887-8) UROBILIN (test code = Normal Normal 8890948016) BILIRUBIN (test code = Negative Negative 1651430151) NITRITE (test code = Negative Negative 7629265213) LEUK JESS (test code = Negative Negative 1751624472) RBC/HPF (test code = See_Comment [Autom ated message] 2339893186) The system [employer] generated this result transmitted ref erence range: 0 - 3 HP F. The reference range was not used to int erpret this result as normal/abnormal . WBC/HPF (test code = See_Comment [Autom ated message] 4794012266) The system [employer] generated this result transmitted ref erence range: 0 - 5 HP F. The reference range was not used to int erpret this result as normal/abnormal . BACTERIA (test code = Negative Negative 7072242732) SQ EPITH (test code = <1 See_Comment [Auto mated message] 1463785629) The system [employer] generated this result transmitted ref erence range: <=2 HPF. The reference range was not used to int erpret this result as normal/abnormal . HYAL CAST (test code = See_Comment [Aut omated message] 2273964301) The system [employer] generated this result transmitted ref erence range: <=2 LPF. The reference range was not used to int erpret this result as normal/abnormal . Lab Interpretation (test Abnormal code = 77755-7) [facility] 2 [id number] 20:30:53 Impression: Postoperative changes. Degenerative changes. No [...] acute bony abnormality identified.End of Report.RL: [address] [facility] HIPS 2 VW [id number] 20:24:52Impression: Postoperative changes. Degenerative changes. No acute [...] clinicalconcern MRI is available.End of Report.RL: [facility] [facility] (NA, K, CL, CO2, GLUCOSE, BUN, CREATININE, CA)2020-05-24 14:15:00 Test Item Value Reference Range Interpretation Comments NA (test code = 139 mmol/L 135-145 3011702292) K (test code = 4.1 mmol/L 3.5-5 3552314888) CL (test code = 104 mmol/L 98-108 0338611856) CO2 TOTAL (test code = 26 mmol/L 23-31 9893399875) AGAP (test code = 2-16 1089367854) BUN (test code = 22 mg/dL 7-23 1763623233) GLUCOSE (test code = 203 mg/dL 70-110 H 6864093579) CREATININE (test code = 1.40 mg/dL 0.6-1.25 H 4498713992) CALCIUM (test code = 9.1 mg/dL 8.6-10.6 0420820344) eGFR Calculation mL/min/1.73m2 (Non-) (test code = 1006837659) eGFR Calculation mL/min/1.73m2 () (test code = 3859725029) ALYSSA (test code = ALYSSA) Association of [...] tests). Lab Interpretation Abnormal (test code = 98419-3) [facility]wood[facility] (ALB, T.PRO, BILI T, BU/BC, ALT, AST, ALK PHOS)2020-05-24 13:54:00 Test Item Value Reference Range Interpretation Comments TOTAL BILI (test code = 7606838264) 0.9 mg/dL 0.1-1.1 BILI UNCON (test code = 4615848808) 1.0 mg/dL 0.1-1.1 BILI CONJ (test code = 4821151001) 0.0 mg/dL 0-0.3 T PROTEIN (test code = 1500299456) 7.0 g/dL 6.3-8.2 ALBUMIN (test code = 2080275711) 4.2 g/dL 3.5-5 ALK PHOS (test code = 3239585396) 49 U/L 34-122 ALTv (test code = 1742-6) 17 U/L 5-50 AST(SGOT) (test code = 9355994997) 25 U/L 13-40 Lab Interpretation (test code = Normal 27519-5) [facility]2020-07-09 13:32:00 Test Item Value Reference Range Interpretation Comments APTT Patient (test See_Comment [Automat ed code = 3173-2) message] The system which generated this result transmitted reference range : 23 - 38 Seconds . The reference range was not used to interpr et this result as normal/abnormal . ALYSSA (test code = ALYSSA) The [facility] patient population mean normal value for aPTT is 30 seconds. Lab Interpretation Normal (test code = 89099-6) [facility]woodProthrom[facility] (PT) / [id number] 13:30:00 Test Item Value Reference Range Interpretation [...] tions. Lab Interpretation (test Normal code = 95511-9) [facility]woodCBC WITH [id number] 13:27:00 Test Item Value Reference Range Interpretation Comments WBC (test code = See_Comment [Automated 5090-2) message] The sy stem which generated this result transmitted reference range : 4.20 - 10.70 10*3/?L. The reference range was not used to interpret this result as normal/abnormal . RBC (test code = See_Comment L [Automated 899-8) message] The sy stem which generated this [...] RDW-SD (test code = 42.6 fL 38.5-51.6 05133-6) RDW-CV (test code = 12.3 % 12.1-15.4 788-0) PLT (test code = See_Comment [Automated 777-3) message] The sy stem which generated this result transmitted reference range : 150 - 328 10*3/ ?L. The reference r corey was not used to interpret this result as normal/abnormal . MPV (test code = 9.9 fL 9.8-13 50882-3) NRBC/100 WBC (test See_Comment [Automat ed code = 2145331378) message] The system which generated this result transmitted reference range : 0.0 - 10.0 /100 WBCs. The refer ence range was not u sed to interpret th is result as normal/abnormal . NRBC x10^3 (test code <0.01 See_Comment [Auto mated = 6524373866) message] The s ystem which generated this result transmitted reference range : 10*3/?L. The reference range was not used to interpret this result as normal/abnormal . GRAN MAT (NEUT) % 55.1 % (test code = 770-8) IMM GRAN % (test code 0.20 % = 3349743821) LYMPH % (test code = 28.8 % 736-9) MONO % (test code = 11.3 % 5905-5) EOS % (test code = 3.5 % 713-8) BASO % (test code = 1.1 % 706-2) GRAN MAT x10^3(ANC) 3.11 10*3/uL 1.99-6.95 (test code = 0845647280) IMM GRAN x10^3 (test <0.03 0-0.06 code = 9871312303) LYMPH x10^3 (test code 1.63 10*3/uL 1.09-3.23 = 731-0) MONO x10^3 (test code 0.64 10*3/uL 0.36-1.02 = 742-7) EOS x10^3 (test code = 0.20 10*3/uL 0.06-0.53 711-2) BASO x10^3 (test code 0.06 10*3/uL 0.01-0.09 = 704-7) Lab Interpretation Abnormal (test code = 01623-1) [facility] VW [id number] 13:25:58HISTORY: ?Pain. FINDINGS: AP, lateral, oblique views of left ankle obtained with portabletechnique showed no acute fracture or dislocation. No talar dome lesion.Minimal degenerative changes are seen inthe medial tibiotalar joint. Noheel spur. No significant ankle joint effusion or aggressive bone lesionsseen. CONCLUSIONS: No acute fracture or dislocation in left ankle. [facility], Radiant Results Inft - 05/24/2020 8:27 AM CDTHISTORY: Pain.FINDINGS: AP, lateral, oblique views of left ankle obtainedwith portabletechnique showed no acute fracture or dislocation. No talar dome lesion.Minimal degenerative changes are seen in the medial tibiotalar joint. Noheel spur. No significant ankle joint effusion or aggressive bone lesionsseen.CONCLUSIONS: No acute fracture or dislocation in left ankle.[facility] GLUCOSE (AUTOMATED)2020-03-23 22:34:00 Test Item Value Reference Range Interpretation Comments POCT GLU (test code = 2051475273) 173 mg/dL 70-110 H Lab Interpretation (test code = Abnormal 34095-3) [facility] GLUCOSE (AUTOMATED)2020-03-23 22:34:00 Test Item Value Reference Range Interpretation Comments POCT GLU (test code = 2494422313) 173 mg/dL 70-110 H Lab Interpretation (test code = Abnormal 27494-3) [facility] GLUCOSE (AUTOMATED)2020-03-23 18:12:00 Test Item Value Reference Range Interpretation Comments POCT GLU (test code = 165 mg/dL 70-110 H Notifi ed Provider [id number]) Lab Interpretation (test Abnormal code = 61986-7) [facility] GLUCOSE (AUTOMATED)2020-03-23 18:12:00 Test Item Value Reference Range Interpretation Comments POCT GLU (test code = 165 mg/dL 70-110 H Notifi ed Provider [id number]) Lab Interpretation (test Abnormal code = 73590-9) [facility] GLUCOSE (AUTOMATED)2020-03-23 15:04:00 Test Item Value Reference Range Interpretation Comments POCT GLU (test code = 114 mg/dL 70-110 H Notifi ed Provider [id number]) Lab Interpretation (test Abnormal code = 02857-9) [facility] GLUCOSE (AUTOMATED)2020-03-23 15:04:00 Test Item Value Reference Range Interpretation Comments POCT GLU (test code = 114 mg/dL 70-110 H Notifi ed Provider [id number]) Lab Interpretation (test Abnormal code = 46176-5) [facility]woodFERRITIN [id number] 13:23:00 Test Item Value Reference Range Interpretation Comments FERRITIN (test code = 139.0 ng/mL 18-464 2179594469) ALYSSA (test code = ALYSSA) Biotin has been reported to cause a negative bias, interpret results relative to patient's use of biotin. Lab Interpretation (test Normal code = 34382-8) [facility]woodFERCTTIN [id number] 13:23:00 Test Item Value Reference Range Interpretation Comments FERRITIN (test code = 139.0 ng/mL 18-464 1725899338) ALYSSA (test code = AYLSSA) Biotin has been reported to cause a negative bias, interpret results relative to patient's use of biotin. Lab Interpretation (test Normal code = 88057-7) [facility] [id number] 12:53:00 Test Item Value Reference Range Interpretation Comments IRON (test code = 6526502682) 87 ug/dL 50-160 TIBC (test code = 7159197377) 385 ug/dL 250-410 % FE SAT (test code = 4367943591) 23 % 20-50 Lab Interpretation (test code = Normal 77009-5) [facility] [id number] 12:53:00 Test Item Value Reference Range Interpretation Comments IRON (test code = 9435371191) 87 ug/dL 50-160 TIBC (test code = 9315176614) 385 ug/dL 250-410 % FE SAT (test code = 1618029465) 23 % 20-50 Lab Interpretation (test code = Normal 11162-6) [facility]2020-05-08 12:07:00 Test Item Value Reference Range Interpretation Comments APTT Patient (test code See_Comment [Au tomated message] = 3173-2) The system [employer] generated this result transmitted ref erence range: 26 - 36 Seconds. The reference range was not used to int erpret this result as normal/abnormal . Lab Interpretation (test Abnormal code = 27169-1) [facility]2020-05-08 12:07:00 Test Item Value Reference Range Interpretation Comments APTT Patient (test code See_Comment [Au tomated message] = 3173-2) The system [employer] generated this result transmitted ref erence range: 26 - 36 Seconds. The reference range was not used to int erpret this result as normal/abnormal . Lab Interpretation (test Abnormal code = 55389-5) [facility]woodTRTR[facility]ENTERNIN [id number] 11:57:00 Test Item Value Reference Range Interpretation Comments TROPONIN I (test 0.046 ng/mL See_Comment H [Automated code = 9562083871) message] The system which generated this result [...] ? Lab Interpretation Abnormal (test code = 92669-1) [facility]woodKATEN [id number] 11:57:00 Test Item Value Reference Range Interpretation Comments TROPONIN I (test 0.046 ng/mL See_Comment H [Automated code = 6195968082) message] The system which generated this result [...] ? Lab Interpretation Abnormal (test code = 06733-1) [facility]wood[facility]OLIC [facility]EL (NA, K, CL, CO2, GLUCOSE, BUN, CREATININE, CA)2020-03-23 11:52:00 Test Item Value Reference Range Interpretation Comments NA (test code = 137 mmol/L 135-145 5728523022) K (test code = 4.1 mmol/L 3.5-5 2409682075) CL (test code = 102 mmol/L 98-108 1173132430) CO2 TOTAL (test code = 26 mmol/L 23-31 5959198111) AGAP (test code = 2-16 4319872183) BUN (test code = 18 mg/dL 7-23 7871351867) GLUCOSE (test code = 119 mg/dL 70-110 H 6443547967) CREATININE (test code = 1.14 mg/dL 0.6-1.25 4551343765) CALCIUM (test code = 9.1 mg/dL 8.6-10.6 8817798695) eGFR Calculation mL/min/1.73m2 (Non-) (test code = 4462125480) eGFR Calculation mL/min/1.73m2 () (test code = 7851523298) ALYSSA (test code = ALYSSA) Association of [...] tests). Lab Interpretation Abnormal (test code = 85850-0) [facility]2020-05-08 11:52:00 Test Item Value Reference Range Interpretation Comments MAGNESIUM (test code = 9007434425) 2.2 mg/dL 1.7-2.4 Lab Interpretation (test code = Normal 43115-3) [facility] (NA, K, CL, CO2, GLUCOSE, BUN, CREATININE, CA)2020-03-23 11:52:00 Test Item Value Reference Range Interpretation Comments NA (test code = 137 mmol/L 135-145 1906338222) K (test code = 4.1 mmol/L 3.5-5 6918406062) CL (test code = 102 mmol/L 98-108 7889080225) CO2 TOTAL (test code = 26 mmol/L 23-31 3443813117) AGAP (test code = 2-16 5746826562) BUN (test code = 18 mg/dL 7-23 3850699227) GLUCOSE (test code = 119 mg/dL 70-110 H 9292736495) CREATININE (test code = 1.14 mg/dL 0.6-1.25 2997926846) CALCIUM (test code = 9.1 mg/dL 8.6-10.6 5804808175) eGFR Calculation mL/min/1.73m2 (Non-) (test code = 6860360146) eGFR Calculation mL/min/1.73m2 () (test code = 6159038421) ALYSSA (test code = ALYSSA) Association of [...] tests). Lab Interpretation Abnormal (test code = 89701-0) [facility]2020-05-08 11:52:00 Test Item Value Reference Range Interpretation Comments MAGNESIUM (test code = 1946612041) 2.2 mg/dL 1.7-2.4 Lab Interpretation (test code = Normal 12500-1) [facility]woodProthrombin Time (PT) / [id number] 11:36:00 Test Item Value Reference Range Interpretation Comments PROTIME PATIENT (test See_Comment [Auto mated message] code = 5964-2) The system [employer] generated this result transmitted ref erence range: 10.1 - 1 2.6 Seconds. The re ference range was not u sed to interpret this result as normal/abnor mal. INR (test code = 6301-6) Nor mal INR <1.1; Warfarin Therap eutic range 2.0 to 3. 0 or 2.5 to 3.5, dep ending upon the indica tions. Lab Interpretation (test Normal code = 65150-2) [facility]woodProthrombin [facility] (PT) / [id number] 11:36:00 Test Item Value Reference Range Interpretation Comments PROTIME PATIENT (test See_Comment [Auto mated message] code = 5964-2) The system [employer] generated this result transmitted ref erence range: 10.1 - 1 2.6 Seconds. The re ference range was not u sed to interpret this result as normal/abnor mal. INR (test code = 6301-6) Nor mal INR <1.1; Warfarin Therap eutic range 2.0 to 3. 0 or 2.5 to 3.5, dep ending upon the indica tions. Lab Interpretation (test Normal code = 59033-1) [facility]woodTROPONIN [id number] 06:38:00 Test Item Value Reference Range Interpretation Comments TROPONIN I (test 0.045 ng/mL See_Comment H [Automated code = 8674185885) message] The system which generated this result [...] ? Lab Interpretation Abnormal (test code = 51608-5) [facility] [id number] 06:38:00 Test Item Value Reference Range Interpretation Comments TROPONIN I (test 0.045 ng/mL See_Comment H [Automated code = 9485603038) message] The system which generated this result [...] ? Lab Interpretation Abnormal (test code = 43462-7) [facility] (NA, K, CL, CO2, GLUCOSE, BUN, CREATININE, CA)2020-03-23 06:29:00 Test Item Value Reference Range Interpretation Comments NA (test code = 137 mmol/L 135-145 6671247551) K (test code = 3.6 mmol/L 3.5-5 9595982711) CL (test code = 101 mmol/L 98-108 7368718206) CO2 TOTAL (test code = 27 mmol/L 23-31 6934084075) AGAP (test code = 2-16 1240543106) BUN (test code = 19 mg/dL 7-23 9145721758) GLUCOSE (test code = 153 mg/dL 70-110 H 2698769445) CREATININE (test code = 1.22 mg/dL 0.6-1.25 3350359782) CALCIUM (test code = 8.9 mg/dL 8.6-10.6 6549441155) eGFR Calculation mL/min/1.73m2 (Non-) (test code = 1845506879) eGFR Calculation mL/min/1.73m2 () (test code = 4804111129) ALYSSA (test code = ALYSSA) Association of [...] tests). Lab Interpretation Abnormal (test code = 90591-0) [facility]MAG[facility]2020-05-08 06:29:00 Test Item Value Reference Range Interpretation Comments MAGNESIUM (test code = 5502583885) 1.7 mg/dL 1.7-2.4 Lab Interpretation (test code = Normal 29867-4) [facility] BrownwoodLIPID PANEL (48866)(TOTAL CHOLESTEROL, TRIGLYCERIDES, HDL)2020-03-23 06:29:00 Test Item Value Reference Range Interpretation Comments CHOL (test code = 106 mg/dL 120-200 L 5390107205) HDL (test code = 46 mg/dL >40 2952147369) HDLC RATIO (test code = See_Comment [Au tomated message] 4207365185) The system [employer] generated this result transmit diamante reference range : <=5.0. The refe rence range was not u sed to interpret th is result as normal/abnormal . TRIG (test code = 74 mg/dL 30-170 1492506237) LDL CHOL (test code = 45 mg/dL See_Comment [Auto mated message] 93410-3) The system [employer] generated this result transmit diamante reference range : <=160. The refe rence range was not u sed to interpret th is result as normal/abnormal . VLDL (test code = 15 mg/dL 5-60 6297483170) Lab Interpretation (test Abnormal code = 39724-9) [facility] METABOLIC PANEL (NA, K, CL, CO2, GLUCOSE, BUN, CREATININE, CA)2020-03-23 06:29:00 Test Item Value Reference Range Interpretation Comments NA (test code = 137 mmol/L 135-145 3314723403) K (test code = 3.6 mmol/L 3.5-5 3687238743) CL (test code = 101 mmol/L 98-108 9155689925) CO2 TOTAL (test code = 27 mmol/L 23-31 5268144300) AGAP (test code = 2-16 2776172397) BUN (test code = 19 mg/dL 7-23 0655559029) GLUCOSE (test code = 153 mg/dL 70-110 H 6937532902) CREATININE (test code = 1.22 mg/dL 0.6-1.25 8649530982) CALCIUM (test code = 8.9 mg/dL 8.6-10.6 1617698633) eGFR Calculation mL/min/1.73m2 (Non-) (test code = 4608337526) eGFR Calculation mL/min/1.73m2 () (test code = 9712195194) ALYSSA (test code = ALYSSA) Association of [...] tests). Lab Interpretation Abnormal (test code = 71672-5) [facility]2020-05-08 06:29:00 Test Item Value Reference Range Interpretation Comments MAGNESIUM (test code = 3597244302) 1.7 mg/dL 1.7-2.4 Lab Interpretation (test code = Normal 80641-1) [facility]woodLIPID PANEL (64146)(TOTAL CHOLESTEROL, TRIGLYCERIDES, HDL)2020-03-23 06:29:00 Test Item Value Reference Range Interpretation Comments CHOL (test code = 106 mg/dL 120-200 L 6344931104) HDL (test code = 46 mg/dL >40 8029531027) HDLC RATIO (test code = See_Comment [Au tomated message] 3227485694) The system [employer] generated this result transmit diamante reference range : <=5.0. The refe rence range was not u sed to interpret th is result as normal/abnormal . TRIG (test code = 74 mg/dL 30-170 2205844059) LDL CHOL (test code = 45 mg/dL See_Comment [Auto mated message] 60424-1) The system [employer] generated this result transmit diamante reference range : <=160. The refe rence range was not u sed to interpret th is result as normal/abnormal . VLDL (test code = 15 mg/dL 5-60 7451611626) Lab Interpretation (test Abnormal code = 40578-4) [facility]woodaPTT2020-05-08 03:18:00 Test Item Value Reference Range Interpretation Comments APTT Patient (test code = See_Comment [ Automated message] 3173-2) The system [employer] generated this result transmitted ref erence range: 26 - 36 Seconds. The re ference range was not u sed to interpret this result as normal/abnor mal. Lab Interpretation (test Normal code = 08058-6) [facility]woodaPTT2020-05-08 03:18:00 Test Item Value Reference Range Interpretation Comments APTT Patient (test code = See_Comment [ Automated message] 3173-2) The system [employer] h generated this result transmitted ref erence range: 26 - 36 Seconds. The re ference range was not u sed to interpret this result as normal/abnor mal. Lab Interpretation (test Normal code = 52218-8) [facility] BrownwoodPROTHROMBIN TIME / [id number] 03:07:00 Test Item Value Reference Range Interpretation Comments PROTIME PATIENT (test See_Comment [Auto mated message] code = 5964-2) The system [employer] generated this result transmitted ref erence range: 10.1 - 1 2.6 Seconds. The re ference range was not u sed to interpret this result as normal/abnor mal. INR (test code = 6301-6) Nor mal INR <1.1; Warfarin Therap eutic range 2.0 to 3. 0 or 2.5 to 3.5, dep ending upon the indica tions. Lab Interpretation (test Normal code = 41437-5) [facility] BrownwoodPROTHROMBIN TIME / [id number] 03:07:00 Test Item Value Reference Range Interpretation Comments PROTIME PATIENT (test See_Comment [Auto mated message] code = 5964-2) The system [employer] generated this result transmitted ref erence range: 10.1 - 1 2.6 Seconds. The re ference range was not u sed to interpret this result as normal/abnor mal. INR (test code = 6301-6) Nor mal INR <1.1; Warfarin Therap eutic range 2.0 to 3. 0 or 2.5 to 3.5, dep ending upon the indica tions. Lab Interpretation (test Normal code = 41964-2) [facility] 2 [id number] 02:23:32 No acute cardiopulmonary process. Preliminary Report [...] reviewed this study and agree with the abovereport.[facility] 2 [id number] 02:23:32 No acute cardiopulmonary process. Preliminary Report [...] is seen. Noacute bony abnormalities are noted. [facility], Radiant Results Inft User - 03/22/2020 9:24 [...] reviewed this study and agree with the abovereport.[facility]woodCORON[facility]IR[facility] COVID-19 [id number] 01:23:00 Test Item Value Reference Range Interpretation Comments SARS-CoV-2 (test code = Not Detected Not Detected 09765-1) ALYSSA (test code = ALYSSA) ID NOW COVID-19 Assay is an isothermal nucleic acid amplification test intended for the qualitative detection of nucleic acid from SARS-CoV-2 viral RNA in nasopharyngeal (DEVELOPMENT TRAINER) specimens. It is used under Emergency Use [...] indicated. Lab Interpretation Normal (test code = 76049-1) [facility]woodCOR[facility]-19 [id number] 01:23:00 Test Item Value Reference Range Interpretation Comments SARS-CoV-2 (test code = Not Detected Not Detected 78754-1) ALYSSA (test code = ALYSSA) ID NOW COVID-19 Assay is an isothermal nucleic acid amplification test intended for the qualitative detection of nucleic acid from SARS-CoV-2 viral RNA in nasopharyngeal (DEVELOPMENT TRAINER) specimens. It is used under Emergency Use [...] indicated. Lab Interpretation Normal (test code = 05128-2) [id number] 00:12:00 Test Item Value Reference Range Interpretation Comments NT-proBNP (test code 585 pg/mL See_Comment H [Autom ated = 5254944672) message] The system which generated this result transmitted reference range : <=450. The reference range was not used to interpret this result as normal/abnormal . ALYSSA (test code = ALYSSA) Biotin has been reported to cause a negative bias, interpret results relative to patient's use of biotin. Lab Interpretation Abnormal (test code = 29653-3) [facility] [id number] 00:12:00 Test Item Value Reference Range Interpretation Comments TROPONIN I (test 0.030 ng/mL See_Comment [Automated code = 3377406754) message] The system which generated this result [...] ? Lab Interpretation Normal (test code = 10180-7) [facility] [id number] 00:12:00 Test Item Value Reference Range Interpretation Comments NT-proBNP (test code 585 pg/mL See_Comment H [Autom ated = 4336277876) message] The system which generated this result transmitted reference range : <=450. The reference range was not used to interpret this result as normal/abnormal . ALYSSA (test code = ALYSSA) Biotin has been reported to cause a negative bias, interpret results relative to patient's use of biotin. Lab Interpretation Abnormal (test code = 56862-3) [facility] [id number] 00:12:00 Test Item Value Reference Range Interpretation Comments TROPONIN I (test 0.030 ng/mL See_Comment [Automated code = 1348456097) message] The system which generated this result [...] ? Lab Interpretation Normal (test code = 69266-0) [facility]. METABOLIC PANEL ([id number])2020-03-23 00:03:00 Test Item Value Reference Range Interpretation Comments NA (test code = 138 mmol/L 135-145 4011083301) K (test code = 4.1 mmol/L 3.5-5 8158137594) CL (test code = 103 mmol/L 98-108 8620756051) CO2 TOTAL (test code = 26 mmol/L 23-31 3302574832) AGAP (test code = 2-16 7298870116) BUN (test code = 18 mg/dL 7-23 3517688458) GLUCOSE (test code = 157 mg/dL 70-110 H 3469838605) CREATININE (test code = 1.19 mg/dL 0.6-1.25 0192728539) TOTAL BILI (test code = 1.1 mg/dL 0.1-1.8 0997531122) CALCIUM (test code = 9.2 mg/dL 8.6-10.6 6498275959) T PROTEIN (test code = 6.8 g/dL 6.3-8.2 8474815352) ALBUMIN (test code = 4.0 g/dL 3.5-5 1756923281) ALK PHOS (test code = 51 U/L 34-122 6546942120) ALTv (test code = 16 U/L 5-50 1742-6) AST(SGOT) (test code = 23 U/L 13-40 0261101869) eGFR Calculation mL/min/1.73m2 (Non-) (test code = 4635999244) eGFR Calculation mL/min/1.73m2 () (test code = 5705607065) ALYSSA (test code = ALYSSA) Association of [...] tests). Lab Interpretation Abnormal (test code = 80093-4) [facility] METABOLIC PANEL ([id number])2020-03-23 00:03:00 Test Item Value Reference Range Interpretation Comments NA (test code = 138 mmol/L 135-145 1278933262) K (test code = 4.1 mmol/L 3.5-5 1424986928) CL (test code = 103 mmol/L 98-108 1716624954) CO2 TOTAL (test code = 26 mmol/L 23-31 9070196690) AGAP (test code = 2-16 6418714973) BUN (test code = 18 mg/dL 7-23 3278709210) GLUCOSE (test code = 157 mg/dL 70-110 H 7641869288) CREATININE (test code = 1.19 mg/dL 0.6-1.25 0671815254) TOTAL BILI (test code = 1.1 mg/dL 0.1-1.7 2279885957) CALCIUM (test code = 9.2 mg/dL 8.6-10.6 4082526648) T PROTEIN (test code = 6.8 g/dL 6.3-8.2 7554113654) ALBUMIN (test code = 4.0 g/dL 3.5-5 8630125150) ALK PHOS (test code = 51 U/L 34-122 6325920412) ALTv (test code = 16 U/L 5-50 1742-6) AST(SGOT) (test code = 23 U/L 13-40 5914181151) eGFR Calculation mL/min/1.73m2 (Non-) (test code = 2771178805) eGFR Calculation mL/min/1.73m2 () (test code = 9427170211) ALYSSA (test code = ALYSSA) Association of [...] tests). Lab Interpretation Abnormal (test code = 22871-0) [facility] WITH [id number] 23:57:00 Test Item Value Reference Range Interpretation Comments WBC (test code = See_Comment [Automated 0988-2) message] The sy stem which generated this result transmitted reference range : 4.20 - 10.70 10*3/?L. The reference range was not used to interpret this result as normal/abnormal . RBC (test code = See_Comment L [Automated 469-8) message] The sy stem which generated this [...] RDW-SD (test code = 49.6 fL 38.5-51.6 88825-1) RDW-CV (test code = 14.6 % 12.1-15.4 788-0) PLT (test code = See_Comment L [Automated 777-3) message] The sy stem which generated this result transmitted reference range : 150 - 328 10*3/ ?L. The reference r corey was not used to interpret this result as normal/abnormal . MPV (test code = 9.9 fL 9.8-13 34990-9) NRBC/100 WBC (test See_Comment [Automat ed code = 1098474418) message] The system which generated this result transmitted reference range : 0.0 - 10.0 /100 WBCs. The refer ence range was not u sed to interpret th is result as normal/abnormal . NRBC x10^3 (test code <0.01 See_Comment [Auto mated = 2129631483) message] The s ystem which generated this result transmitted reference range : 10*3/?L. The reference range was not used to interpret this result as normal/abnormal . GRAN MAT (NEUT) % 55.3 % (test code = 770-8) IMM GRAN % (test code 0.20 % = 8468323406) LYMPH % (test code = 28.3 % 736-9) MONO % (test code = 12.6 % 5905-5) EOS % (test code = 3.1 % 713-8) BASO % (test code = 0.5 % 706-2) GRAN MAT x10^3(ANC) 3.20 10*3/uL 1.99-6.95 (test code = 8356515838) IMM GRAN x10^3 (test <0.03 0-0.06 code = 3515022835) LYMPH x10^3 (test code 1.64 10*3/uL 1.09-3.23 = 731-0) MONO x10^3 (test code 0.73 10*3/uL 0.36-1.02 = 742-7) EOS x10^3 (test code = 0.18 10*3/uL 0.06-0.53 711-2) BASO x10^3 (test code 0.03 10*3/uL 0.01-0.09 = 704-7) Lab Interpretation Abnormal (test code = 36931-9) [facility] WITH [id number] 23:57:00 Test Item Value Reference Range Interpretation [...] RDW-SD (test code = 49.6 fL 38.5-51.6 63011-7) RDW-CV (test code = 14.6 % 12.1-15.4 788-0) PLT (test code = See_Comment L [Automated 777-3) message] The sy stem which generated this result transmitted reference range : 150 - 328 10*3/ ?L. The reference r corey was not used to interpret this result as normal/abnormal . MPV (test code = 9.9 fL 9.8-13 87161-7) NRBC/100 WBC (test See_Comment [Automat ed code = 9626978925) message] The system which generated this result transmitted reference range : 0.0 - 10.0 /100 WBCs. The refer ence range was not u sed to interpret th is result as normal/abnormal . NRBC x10^3 (test code <0.01 See_Comment [Auto mated = 4728433323) message] The s ystem which generated this result transmitted reference range : 10*3/?L. The reference range was not used to interpret this result as normal/abnormal . GRAN MAT (NEUT) % 55.3 % (test code = 770-8) IMM GRAN % (test code 0.20 % = 7998068558) LYMPH % (test code = 28.3 % 736-9) MONO % (test code = 12.6 % 5905-5) EOS % (test code = 3.1 % 713-8) BASO % (test code = 0.5 % 706-2) GRAN MAT x10^3(ANC) 3.20 10*3/uL 1.99-6.95 (test code = 2278748367) IMM GRAN x10^3 (test <0.03 0-0.06 code = 7828350551) LYMPH x10^3 (test code 1.64 10*3/uL 1.09-3.23 = 731-0) MONO x10^3 (test code 0.73 10*3/uL 0.36-1.02 = 742-7) EOS x10^3 (test code = 0.18 10*3/uL 0.06-0.53 711-2) BASO x10^3 (test code 0.03 10*3/uL 0.01-0.09 = 704-7) Lab Interpretation Abnormal (test code = 66798-2) [facility] [id number] 21:48:00 Test Item Value Reference Range Interpretation Comments SARS-CoV-2 (test code = Not Detected Not Detected 50387-8) ALYSSA (test code = ALYSSA) ID NOW COVID-19 Assay is an isothermal nucleic acid amplification test intended for the qualitative detection of nucleic acid from SARS-CoV-2 viral RNA in nasopharyngeal (DEVELOPMENT TRAINER) specimens. It is used under Emergency Use [...] indicated. Lab Interpretation Normal (test code = 62001-9) [facility]wood[facility]rop[facility] [id number] 21:44:00 Test Item Value Reference Range Interpretation Comments TROPONIN I (test 0.027 ng/mL See_Comment [Automated code = 1175446906) message] The system which generated this result [...] ? Lab Interpretation Normal (test code = 65638-3) [facility]wood[facility]th[facility] (PT) / [id number] 21:41:00 Test Item Value Reference Range Interpretation [...] tions. Lab Interpretation (test Normal code = 44954-4) [facility] [id number] 21:39:00 Test Item Value Reference Range Interpretation Comments NT-proBNP (test code 663 pg/mL See_Comment H [Autom ated = 2041617637) message] The system which generated this result transmitted reference range : <=450. The reference range was not used to interpret this result as normal/abnormal . ALYSSA (test code = ALYSSA) Biotin has been reported to cause a negative bias, interpret results relative to patient's use of biotin. Lab Interpretation Abnormal (test code = 11078-8) [facility]. METABOLIC PANEL (32464)2020-03-21 21:37:00 Test Item Value Reference Range Interpretation Comments NA (test code = 139 mmol/L 135-145 7099616842) K (test code = 4.1 mmol/L 3.5-5 7670510291) CL (test code = 102 mmol/L 98-108 8479364593) CO2 TOTAL (test code = 29 mmol/L 23-31 5589335038) AGAP (test code = 2-16 2515912615) BUN (test code = 18 mg/dL 7-23 9294693415) GLUCOSE (test code = 277 mg/dL 70-110 H 0965581761) CREATININE (test code = 1.23 mg/dL 0.6-1.25 6605441650) TOTAL BILI (test code = 1.3 mg/dL 0.1-1.1 H 3777012084) CALCIUM (test code = 9.8 mg/dL 8.6-10.6 3816569721) T PROTEIN (test code = 7.0 g/dL 6.3-8.2 6141733877) ALBUMIN (test code = 4.2 g/dL 3.5-5 0326020432) ALK PHOS (test code = 50 U/L 34-122 5299846799) ALTv (test code = 15 U/L 5-50 1742-6) AST(SGOT) (test code = 22 U/L 13-40 0995797787) eGFR Calculation mL/min/1.73m2 (Non-) (test code = 8624994065) eGFR Calculation mL/min/1.73m2 () (test code = 3871566769) ALYSSA (test code = ALYSSA) Association of [...] tests). Lab Interpretation Abnormal (test code = 24478-2) [facility]woodLipase [id number] 21:37:00 Test Item Value Reference Range Interpretation Comments LIPASE (test code = 5147171801) 161 U/L 0-220 Lab Interpretation (test code = Normal 92615-4) [facility]woodChes 1 [id number] 20:46:31HISTORY: Chest pain. TECHNIQUE: Portable AP view of the chest is obtained. Comparison made with03/04/2020 study. FINDINGS: No acute pneumonia. No pneumothorax or pleural effusion orpulmonary congestion detected. Mild cardiomegaly and intrathecal electrodesin lower thoracic spinal canal noted. Mild thoracolumbar scoliosis noted. CONCLUSIONS: Mild cardiomegaly.Prmb, Radiant Results Inft User - 03/21/2020 3:47 PM CDTHISTORY: Chest pain.TECHNIQUE: Portable AP view of the chest is obtained. Comparison made with03/04/2020 study.FINDINGS: No acute pneumonia. No pneumothorax or pleural effusion orpulmonary congestion detected. Mild cardiomegaly and intrathecal electrodesin lower thoracic spinal canal noted. Mild thoracolumbar scoliosis noted.CONCLUSIONS: Mild cardiomegaly. [facility]woodLapaic Acid Whole [id number] 20:43:00 Test Item Value Reference Range Interpretation Comments LACTIC ACID (test code = 1.91 mmol/L 0.3-2.6 4289802720) [facility] GLUCOSE (AUTOMATED)2020-03-07 20:58:00 Test Item Value Reference Range Interpretation Comments POCT GLU (test code = 1937833045) 216 mg/dL 70-110 H Lab Interpretation (test code = Abnormal 78128-5) [facility] GLUCOSE (AUTOMATED)2020-03-07 16:00:00 Test Item Value Reference Range Interpretation Comments POCT GLU (test code = 2139763295) 168 mg/dL 70-110 H Lab Interpretation (test code = Abnormal 70883-8) [facility] GLUCOSE (AUTOMATED)2020-03-07 13:07:00 Test Item Value Reference Range Interpretation Comments POCT GLU (test code = 1525262288) 148 mg/dL 70-110 H Lab Interpretation (test code = Abnormal 13649-2) [facility]woodTROPONIN [id number] 11:27:00 Test Item Value Reference Range Interpretation Comments TROPONIN I (test 0.051 ng/mL See_Comment H [Automated code = 9369320068) message] The system which generated this result [...] ? Lab Interpretation Abnormal (test code = 41786-6) [facility] [id number] 11:24:00 Test Item Value Reference Range Interpretation Comments NT-proBNP (test code 336 pg/mL See_Comment [Autom ated = 8485262736) message] The system which generated this result transmitted reference range : <=450. The reference range was not used to interpret this result as normal/abnormal . ALYSSA (test code = ALYSSA) Biotin has been reported to cause a negative bias, interpret results relative to patient's use of biotin. Lab Interpretation Normal (test code = 90452-8) [facility]woodBasi Met[facility] (NA, K, CL, CO2, GLUCOSE, BUN, CREATININE, CA)2020-03-07 11:14:00 Test Item Value Reference Range Interpretation Comments NA (test code = 138 mmol/L 135-145 9113628395) K (test code = 3.8 mmol/L 3.5-5 3037738613) CL (test code = 97 mmol/L 98-108 L 4845343872) CO2 TOTAL (test code = 30 mmol/L 23-31 5314926472) AGAP (test code = 2-16 7350512398) BUN (test code = 36 mg/dL 7-23 H 6267435815) GLUCOSE (test code = 140 mg/dL 70-110 H 3926927744) CREATININE (test code = 1.50 mg/dL 0.6-1.25 H 3672308789) CALCIUM (test code = 10.0 mg/dL 8.6-10.6 2641931730) eGFR Calculation mL/min/1.73m2 (Non-) (test code = 8508126965) eGFR Calculation mL/min/1.73m2 () (test code = 8779773258) ALYSSA (test code = ALYSSA) Association of [...] tests). Lab Interpretation Abnormal (test code = 52926-1) [facility] BrownwoodURIC [id number] 11:14:00 Test Item Value Reference Range Interpretation Comments URIC ACID (test code = 4763428946) 5.4 mg/dL 3.6-8 Lab Interpretation (test code = Normal 82875-1) [facility]woodCB WITH [id number] 10:53:00 Test Item Value Reference Range Interpretation Comments WBC (test code = See_Comment [Automated 5843-2) message] The sy stem which generated this result transmitted reference range : 4.20 - 10.70 10*3/?L. The reference range was not used to interpret this result as normal/abnormal . RBC (test code = See_Comment L [Automated 883-7) message] The sy stem which generated this [...] RDW-SD (test code = 45.1 fL 38.5-51.6 66957-9) RDW-CV (test code = 14.2 % 12.1-15.4 788-0) PLT (test code = See_Comment [Automated 777-3) message] The sy stem which generated this result transmitted reference range : 150 - 328 10*3/ ?L. The reference r corey was not used to interpret this result as normal/abnormal . MPV (test code = 9.8 fL 9.8-13 71007-2) NRBC/100 WBC (test See_Comment [Automat ed code = 6585590404) message] The system which generated this result transmitted reference range : 0.0 - 10.0 /100 WBCs. The refer ence range was not u sed to interpret th is result as normal/abnormal . NRBC x10^3 (test code <0.01 See_Comment [Auto mated = 5482235717) message] The s ystem which generated this result transmitted reference range : 10*3/?L. The reference range was not used to interpret this result as normal/abnormal . GRAN MAT (NEUT) % 51.0 % (test code = 770-8) IMM GRAN % (test code 0.50 % = 0795698858) LYMPH % (test code = 32.0 % 736-9) MONO % (test code = 11.3 % 5905-5) EOS % (test code = 4.3 % 713-8) BASO % (test code = 0.9 % 706-2) GRAN MAT x10^3(ANC) 2.85 10*3/uL 1.99-6.95 (test code = 4690919040) IMM GRAN x10^3 (test 0.03 10*3/uL 0-0.06 code = 5438049177) LYMPH x10^3 (test code 1.79 10*3/uL 1.09-3.23 = 731-0) MONO x10^3 (test code 0.63 10*3/uL 0.36-1.02 = 742-7) EOS x10^3 (test code = 0.24 10*3/uL 0.06-0.53 711-2) BASO x10^3 (test code 0.05 10*3/uL 0.01-0.09 = 704-7) Lab Interpretation Abnormal (test code = 24804-4) [facility] GLUCOSE (AUTOMATED)2020-03-06 22:46:00 Test Item Value Reference Range Interpretation Comments POCT GLU (test code = 4480878009) 209 mg/dL 70-110 H Lab Interpretation (test code = Abnormal 23610-8) [facility] GLUCOSE (AUTOMATED)2020-03-06 16:23:00 Test Item Value Reference Range Interpretation Comments POCT GLU (test code = 7983835559) 254 mg/dL 70-110 H Lab Interpretation (test code = Abnormal 90056-3) [facility] GLUCOSE (AUTOMATED)2020-03-06 12:51:00 Test Item Value Reference Range Interpretation Comments POCT GLU (test code = 4533423101) 126 mg/dL 70-110 H Lab Interpretation (test code = Abnormal 80401-4) [facility]woodTROPONIN [id number] 10:16:00 Test Item Value Reference Range Interpretation Comments TROPONIN I (test 0.056 ng/mL See_Comment H [Automated code = 9332590000) message] The system which generated this result [...] ? Lab Interpretation Abnormal (test code = 06386-7) [facility] Metabolic Panel (NA, K, CL, CO2, GLUCOSE, BUN, CREATININE, CA)2020-03-06 10:13:00 Test Item Value Reference Range Interpretation Comments NA (test code = 136 mmol/L 135-145 8133631951) K (test code = 4.1 mmol/L 3.5-5 2473727841) CL (test code = 95 mmol/L 98-108 L 7193380343) CO2 TOTAL (test code = 30 mmol/L 23-31 6413495840) AGAP (test code = 2-16 9099804948) BUN (test code = 35 mg/dL 7-23 H 4058476860) GLUCOSE (test code = 174 mg/dL 70-110 H 0649316428) CREATININE (test code = 1.67 mg/dL 0.6-1.25 H 4234945868) CALCIUM (test code = 9.7 mg/dL 8.6-10.6 7461580011) eGFR Calculation mL/min/1.73m2 (Non-) (test code = 0295585278) eGFR Calculation mL/min/1.73m2 () (test code = 7760113799) ALYSSA (test code = ALYSSA) Association of [...] tests). Lab Interpretation Abnormal (test code = 59810-7) [facility] WITH [id number] 09:16:00 Test Item Value Reference Range Interpretation Comments WBC (test code = See_Comment [Automated 1590-2) message] The sy stem which generated this result transmitted reference range : 4.20 - 10.70 10*3/?L. The reference range was not used to interpret this result as normal/abnormal . RBC (test code = See_Comment L [Automated 109-8) message] The sy stem which generated this [...] RDW-SD (test code = 45.6 fL 38.5-51.6 47782-7) RDW-CV (test code = 14.3 % 12.1-15.4 788-0) PLT (test code = See_Comment [Automated 777-3) message] The sy stem which generated this result transmitted reference range : 150 - 328 10*3/ ?L. The reference r corey was not used to interpret this result as normal/abnormal . MPV (test code = 9.8 fL 9.8-13 16464-0) NRBC/100 WBC (test See_Comment [Automat ed code = 6517190373) message] The system which generated this result transmitted reference range : 0.0 - 10.0 /100 WBCs. The refer ence range was not u sed to interpret th is result as normal/abnormal . NRBC x10^3 (test code <0.01 See_Comment [Auto mated = 3340464197) message] The s ystem which generated this result transmitted reference range : 10*3/?L. The reference range was not used to interpret this result as normal/abnormal . GRAN MAT (NEUT) % 56.1 % (test code = 770-8) IMM GRAN % (test code 0.10 % = 0548888127) LYMPH % (test code = 29.7 % 736-9) MONO % (test code = 9.6 % 5905-5) EOS % (test code = 3.8 % 713-8) BASO % (test code = 0.7 % 706-2) GRAN MAT x10^3(ANC) 3.79 10*3/uL 1.99-6.95 (test code = 4033750898) IMM GRAN x10^3 (test <0.03 0-0.06 code = 1880237397) LYMPH x10^3 (test code 2.01 10*3/uL 1.09-3.23 = 731-0) MONO x10^3 (test code 0.65 10*3/uL 0.36-1.02 = 742-7) EOS x10^3 (test code = 0.26 10*3/uL 0.06-0.53 711-2) BASO x10^3 (test code 0.05 10*3/uL 0.01-0.09 = 704-7) Lab Interpretation Abnormal (test code = 46357-6) [facility] GLUCOSE (AUTOMATED)2020-03-06 01:25:00 Test Item Value Reference Range Interpretation Comments POCT GLU (test code = 7109963111) 208 mg/dL 70-110 H Lab Interpretation (test code = Abnormal 05750-6) [id number] Test Item Value Reference Range Interpretation Comments TROPONIN I (test 0.047 ng/mL See_Comment H [Automated code = 0240181999) message] The system which generated this result [...] ? Lab Interpretation Abnormal (test code = 35221-3) [facility] GLUCOSE (AUTOMATED)2020-03-05 21:19:00 Test Item Value Reference Range Interpretation Comments POCT GLU (test code = 9721981523) 234 mg/dL 70-110 H Lab Interpretation (test code = Abnormal 79140-0) [facility] GLUCOSE (AUTOMATED)2020-03-05 16:55:00 Test Item Value Reference Range Interpretation Comments POCT GLU (test code = 1332601059) 258 mg/dL 70-110 H Lab Interpretation (test code = Abnormal 88503-5) [facility] GLUCOSE (AUTOMATED)2020-03-05 12:59:00 Test Item Value Reference Range Interpretation Comments POCT GLU (test code = 3861127391) 194 mg/dL 70-110 H Lab Interpretation (test code = Abnormal 66789-6) [facility] [id number] 10:54:00 Test Item Value Reference Range Interpretation Comments TROPONIN I (test 0.071 ng/mL See_Comment H [Automated code = 4652489404) message] The system which generated this result [...] ? Lab Interpretation Abnormal (test code = 33458-6) [facility] (NA, K, CL, CO2, GLUCOSE, BUN, CREATININE, CA)2020-03-05 10:43:00 Test Item Value Reference Range Interpretation Comments NA (test code = 139 mmol/L 135-145 6708701121) K (test code = 4.1 mmol/L 3.5-5 4030357823) CL (test code = 101 mmol/L 98-108 9481249982) CO2 TOTAL (test code = 27 mmol/L 23-31 0537863726) AGAP (test code = 2-16 5885587812) BUN (test code = 25 mg/dL 7-23 H 7965170617) GLUCOSE (test code = 243 mg/dL 70-110 H 6572097738) CREATININE (test code = 1.22 mg/dL 0.6-1.25 5727392405) CALCIUM (test code = 9.8 mg/dL 8.6-10.6 5721717037) eGFR Calculation mL/min/1.73m2 (Non-) (test code = 2339129101) eGFR Calculation mL/min/1.73m2 () (test code = 3128701680) ALYSSA (test code = ALYSSA) Association of [...] tests). Lab Interpretation Abnormal (test code = 82181-1) [facility] WITH [id number] 10:23:00 Test Item Value Reference Range Interpretation Comments WBC (test code = See_Comment [Automated message] 6690-2) The system [employer] generated this result transmitted ref erence range: 4.20 - 1 0.70 10*3/?L. The re ference range was not u sed to interpret this result as normal/abnor mal. RBC (test code = See_Comment [Automated message] 789-8) The system [employer] generated this result transmitted ref erence range: [...] RDW-SD (test code 47.8 fL 38.5-51.6 = 53264-9) RDW-CV (test code 14.4 % 12.1-15.4 = 788-0) PLT (test code = See_Comment [Automated message] 777-3) The system [employer] generated this result transmitted ref erence range: 150 - 32 8 10*3/?L. The re ference range was not u sed to interpret this result as normal/abnor mal. MPV (test code = 9.8 fL 9.8-13 12004-6) NRBC/100 WBC (test See_Comment [Automat ed message] code = 5650688219) The syste m which generated this result transmitted ref erence range: 0.0 - 10 .0 /100 WBCs. The refer ence range was not u sed to interpret this result as normal/abnor mal. NRBC x10^3 (test <0.01 See_Comment [Automated message] code = 3689245550) The syste m which generated this result transmitted ref erence range: 10*3/?L. The reference range was not used to interpr et this result as normal/abnormal . GRAN MAT (NEUT) % 48.8 % (test code = 770-8) IMM GRAN % (test 0.20 % code = 8048226324) LYMPH % (test code 34.7 % = 736-9) MONO % (test code 10.8 % = 5905-5) EOS % (test code = 4.9 % 713-8) BASO % (test code 0.6 % = 706-2) GRAN MAT 2.49 10*3/uL 1.99-6.95 x10^3(ANC) (test code = 3470151677) IMM GRAN x10^3 <0.03 0-0.06 (test code = 1159069670) LYMPH x10^3 (test 1.77 10*3/uL 1.09-3.23 code = 731-0) MONO x10^3 (test 0.55 10*3/uL 0.36-1.02 code = 742-7) EOS x10^3 (test 0.25 10*3/uL 0.06-0.53 code = 711-2) BASO x10^3 (test 0.03 10*3/uL 0.01-0.09 code = 704-7) [facility]woodXR [facility]ST 1 [id number] 03:06:08 No acute cardiopulmonary process. Unchanged enlargement [...] reviewed this study and agree with the abovereport.[facility] CORONAVIRUS COVID-19 [id number] 00:34:00 Test Item Value Reference Range Interpretation Comments SARS-CoV-2 (test code = Not Detected Not Detected 38879-5) ALYSSA (test code = ALYSSA) ID NOW COVID-19 Assay is an isothermal nucleic acid amplification test intended for the qualitative detection of nucleic acid from SARS-CoV-2 viral RNA in nasopharyngeal (DEVELOPMENT TRAINER) specimens. It is used under Emergency Use [...] indicated. Lab Interpretation Normal (test code = 02106-4) [facility]woodTroponin [id number] 00:08:00 Test Item Value Reference Range Interpretation Comments TROPONIN I (test 0.056 ng/mL See_Comment H [Automated code = 1492725926) message] The system which generated this result [...] ? Lab Interpretation Abnormal (test code = 85324-7) [facility]woodN-TERMIN[facility] [id number] 00:04:00 Test Item Value Reference Range Interpretation Comments NT-proBNP (test code 562 pg/mL See_Comment H [Autom ated = 0907672753) message] The system which generated this result transmitted reference range : <=450. The reference range was not used to interpret this result as normal/abnormal . ALYSSA (test code = ALYSSA) Biotin has been reported to cause a negative bias, interpret results relative to patient's use of biotin. Lab Interpretation Abnormal (test code = 14473-1) [facility]woodProthrombin Time (PT) / [id number] 23:57:00 Test Item Value Reference Range Interpretation [...] tions. Lab Interpretation (test Normal code = 55953-6) [facility]woodBasi Metabolic Panel (NA, K, CL, CO2, GLUCOSE, BUN, CREATININE, CA)2020-03-04 23:56:00 Test Item Value Reference Range Interpretation Comments NA (test code = 139 mmol/L 135-145 7474050074) K (test code = 4.1 mmol/L 3.5-5 0609818063) CL (test code = 102 mmol/L 98-108 1403676767) CO2 TOTAL (test code = 29 mmol/L 23-31 2885459780) AGAP (test code = 2-16 7611782544) BUN (test code = 23 mg/dL 7-23 4430389991) GLUCOSE (test code = 193 mg/dL 70-110 H 7454199745) CREATININE (test code = 1.25 mg/dL 0.6-1.25 8228464398) CALCIUM (test code = 9.7 mg/dL 8.6-10.6 2667336913) eGFR Calculation mL/min/1.73m2 (Non-) (test code = 0114728894) eGFR Calculation mL/min/1.73m2 () (test code = 5788950389) ALYSSA (test code = ALYSSA) Association of [...] tests). Lab Interpretation Abnormal (test code = 19964-9) [facility]woodHepatic Function Panel (ALB, T.PRO, BILI T, BU/BC, ALT, AST, ALK PHOS)2020-03-04 23:56:00 Test Item Value Reference Range Interpretation Comments TOTAL BILI (test code = 6205738123) 1.1 mg/dL 0.1-1.1 BILI UNCON (test code = 2175941536) 1.1 mg/dL 0.1-1.1 BILI CONJ (test code = 9615826964) 0.0 mg/dL 0-0.3 T PROTEIN (test code = 1197922099) 7.1 g/dL 6.3-8.2 ALBUMIN (test code = 4420010745) 4.1 g/dL 3.5-5 ALK PHOS (test code = 0879991009) 61 U/L 34-122 ALTv (test code = 1742-6) 16 U/L 5-50 AST(SGOT) (test code = 3880674354) 23 U/L 13-40 Lab Interpretation (test code = Normal 52520-3) [facility]woodLipase [id number] 23:56:00 Test Item Value Reference Range Interpretation Comments LIPASE (test code = 9485341062) 149 U/L 0-220 Lab Interpretation (test code = Normal 86773-5) [facility]woodaPTT2020-04-19 23:56:00 Test Item Value Reference Range Interpretation Comments APTT Patient (test See_Comment [Automat ed code = 3173-2) message] The system which generated this result transmitted reference range : 23 - 38 Seconds . The reference range was not used to interpr et this result as normal/abnormal . ALYSSA (test code = ALYSSA) The [facility] patient population mean normal value for aPTT is 30 seconds. Lab Interpretation Normal (test code = 11815-3) [facility]woodCBC WITH [id number] 23:46:00 Test Item Value Reference Range Interpretation [...] RDW-SD (test code = 48.3 fL 38.5-51.6 16500-9) RDW-CV (test code = 14.7 % 12.1-15.4 788-0) PLT (test code = See_Comment [Automated 777-3) message] The sy stem which generated this result transmitted reference range : 150 - 328 10*3/ ?L. The reference r corey was not used to interpret this result as normal/abnormal . MPV (test code = 9.8 fL 9.8-13 94140-8) NRBC/100 WBC (test See_Comment [Automat ed code = 8322955780) message] The system which generated this result transmitted reference range : 0.0 - 10.0 /100 WBCs. The refer ence range was not u sed to interpret th is result as normal/abnormal . NRBC x10^3 (test code <0.01 See_Comment [Auto mated = 7694300231) message] The s ystem which generated this result transmitted reference range : 10*3/?L. The reference range was not used to interpret this result as normal/abnormal . GRAN MAT (NEUT) % 60.1 % (test code = 770-8) IMM GRAN % (test code 0.20 % = 9380232641) LYMPH % (test code = 26.4 % 736-9) MONO % (test code = 9.9 % 5905-5) EOS % (test code = 2.8 % 713-8) BASO % (test code = 0.6 % 706-2) GRAN MAT x10^3(ANC) 3.17 10*3/uL 1.99-6.95 (test code = 7228098091) IMM GRAN x10^3 (test <0.03 0-0.06 code = 7522563432) LYMPH x10^3 (test code 1.39 10*3/uL 1.09-3.23 = 731-0) MONO x10^3 (test code 0.52 10*3/uL 0.36-1.02 = 742-7) EOS x10^3 (test code = 0.15 10*3/uL 0.06-0.53 711-2) BASO x10^3 (test code 0.03 10*3/uL 0.01-0.09 = 704-7) Lab Interpretation Abnormal (test code = 34349-5) [facility] GLUCOSE (AUTOMATED)2020-03-02 16:04:00 Test Item Value Reference Range Interpretation Comments POCT GLU (test code = 2418457311) 214 mg/dL 70-110 H Lab Interpretation (test code = Abnormal 30899-7) [facility] GLUCOSE (AUTOMATED)2020-03-02 16:04:00 Test Item Value Reference Range Interpretation Comments POCT GLU (test code = 0822665439) 271 mg/dL 70-110 H Lab Interpretation (test code = Abnormal 20400-8) [facility]woodN-TERMINAL [id number] 09:43:00 Test Item Value Reference Range Interpretation Comments NT-proBNP (test code 1670 pg/mL See_Comment H [Autom ated = 0646505903) message] The system which generated this result transmitted reference range : <=450. The reference range was not used to interpret this result as normal/abnormal . ALYSSA (test code = ALYSSA) Biotin has been reported to cause a negative bias, interpret results relative to patient's use of biotin. Lab Interpretation Abnormal (test code = 32471-6) [facility] METABOLIC PANEL (NA, K, CL, CO2, GLUCOSE, BUN, CREATININE, CA)2020-03-02 09:33:00 Test Item Value Reference Range Interpretation Comments NA (test code = 143 mmol/L 135-145 3617352623) K (test code = 3.8 mmol/L 3.5-5 7003335548) CL (test code = 105 mmol/L 98-108 5259125265) CO2 TOTAL (test code = 28 mmol/L 23-31 6062587669) AGAP (test code = 2-16 0598861759) BUN (test code = 19 mg/dL 7-23 9585069516) GLUCOSE (test code = 152 mg/dL 70-110 H 2341995381) CREATININE (test code = 1.18 mg/dL 0.6-1.25 8381565194) CALCIUM (test code = 9.0 mg/dL 8.6-10.6 6257312222) eGFR Calculation mL/min/1.73m2 (Non-) (test code = 0876213600) eGFR Calculation mL/min/1.73m2 () (test code = 0010013138) ALYSSA (test code = ALYSSA) Association of [...] tests). Lab Interpretation Abnormal (test code = 73595-9) [facility] Test Item Value Reference Range Interpretation Comments MAGNESIUM (test code = 0979690980) 1.8 mg/dL 1.7-2.4 Lab Interpretation (test code = Normal 01797-3) [facility]woodPO[facility]2020-03-01 20:42:00 Test Item Value Reference Range Interpretation Comments POCT GLU (test code = 9504788891) 231 mg/dL 70-110 H Lab Interpretation (test code = Abnormal 77206-6) [facility]woodVITAMIN B12, [id number] 11:51:00 Test Item Value Reference Range Interpretation Comments VIT B12 (test code = 325 pg/mL 240-930 4362637739) ALYSSA (test code = ALYSSA) Biotin has been reported to cause a positive bias, interpret results relative to patient's use of biotin. Lab Interpretation (test Normal code = 78358-1) [facility]woodFOLATE2020-04-16 11:49:00 Test Item Value Reference Range Interpretation Comments FOLATE SER (test code = >20.0 3-20 H Slig ht hemolysis 7219193614) Lab Interpretation (test Abnormal code = 61821-3) [facility]woodPROCALCITONIN2020-04-16 10:49:00 Test Item Value Reference Range Interpretation Comments Procalcitonin (test 3.05 ng/mL <0.07 H code = 5948264693) ALYSSA (test code = ALYSSA) INTERPRETATION OF [...] lung abscess/empyema. For further information please refer to:[email or web address] Lab Interpretation Abnormal (test code = 43082-6) [facility]woodKARINSANTOS [id number] 09:58:00 Test Item Value Reference Range Interpretation Comments TROPONIN I (test 0.093 ng/mL See_Comment H [Automated code = 6344161025) message] The system which generated this result [...] ? Lab Interpretation Abnormal (test code = 13813-8) [facility]woodN-TERMINAL [id number] 09:55:00 Test Item Value Reference Range Interpretation Comments NT-proBNP (test code 4450 pg/mL See_Comment H [Autom ated = 9502363002) message] The system which generated this result transmitted reference range : <=450. The reference range was not used to interpret this result as normal/abnormal . ALYSSA (test code = ALYSSA) Biotin has been reported to cause a negative bias, interpret results relative to patient's use of biotin. Lab Interpretation Abnormal (test code = 23256-5) [facility]woodBasi Metabolic Panel (NA, K, CL, CO2, GLUCOSE, BUN, CREATININE, CA)2020-03-01 09:50:00 Test Item Value Reference Range Interpretation Comments NA (test code = 141 mmol/L 135-145 9313457278) K (test code = 3.5 mmol/L 3.5-5 4707895158) CL (test code = 105 mmol/L 98-108 2824322999) CO2 TOTAL (test code = 26 mmol/L 23-31 5839205993) AGAP (test code = 2-16 3548415016) BUN (test code = 13 mg/dL 7-23 6082216689) GLUCOSE (test code = 219 mg/dL 70-110 H 8190566511) CREATININE (test code = 1.01 mg/dL 0.6-1.25 0419705343) CALCIUM (test code = 8.7 mg/dL 8.6-10.6 4827117701) eGFR Calculation mL/min/1.73m2 (Non-) (test code = 9677226185) eGFR Calculation mL/min/1.73m2 () (test code = 5470464853) ALYSSA (test code = ALYSSA) Association of [...] tests). Lab Interpretation Abnormal (test code = 69660-7) [facility] [id number] 09:50:00 Test Item Value Reference Range Interpretation Comments MAGNESIUM (test code = 0948399096) 1.9 mg/dL 1.7-2.4 Lab Interpretation (test code = Normal 05641-3) [facility] WITH [id number] 09:22:00 Test Item Value Reference Range Interpretation [...] RDW-SD (test code = 47.8 fL 38.5-51.6 55084-8) RDW-CV (test code = 14.8 % 12.1-15.4 788-0) PLT (test code = See_Comment L [Automated 777-3) message] The sy stem which generated this result transmitted reference range : 150 - 328 10*3/ ?L. The reference r corey was not used to interpret this result as normal/abnormal . MPV (test code = 9.9 fL 9.8-13 94754-5) NRBC/100 WBC (test See_Comment [Automat ed code = 9228741106) message] The system which generated this result transmitted reference range : 0.0 - 10.0 /100 WBCs. The refer ence range was not u sed to interpret th is result as normal/abnormal . NRBC x10^3 (test code <0.01 See_Comment [Auto mated = 5833725517) message] The s ystem which generated this result transmitted reference range : 10*3/?L. The reference range was not used to interpret this result as normal/abnormal . GRAN MAT (NEUT) % 66.0 % (test code = 770-8) IMM GRAN % (test code 0.30 % = 3334888990) LYMPH % (test code = 20.8 % 736-9) MONO % (test code = 9.5 % 5905-5) EOS % (test code = 2.8 % 713-8) BASO % (test code = 0.6 % 706-2) GRAN MAT x10^3(ANC) 4.44 10*3/uL 1.99-6.95 (test code = 6775560922) IMM GRAN x10^3 (test <0.03 0-0.06 code = 3130528877) LYMPH x10^3 (test code 1.40 10*3/uL 1.09-3.23 = 731-0) MONO x10^3 (test code 0.64 10*3/uL 0.36-1.02 = 742-7) EOS x10^3 (test code = 0.19 10*3/uL 0.06-0.53 711-2) BASO x10^3 (test code 0.04 10*3/uL 0.01-0.09 = 704-7) Lab Interpretation Abnormal (test code = 47930-8) [facility]woodGLYCOSYLATED HEMOGLOBIN (A1C)2020-03-01 06:49:00 Test Item Value Reference [...] Indicated Lab Interpretation Abnormal (test code = 27633-7) [facility]woodURIC [id number] 06:25:00 Test Item Value Reference Range Interpretation Comments URIC ACID (test code = 7701879821) 2.3 mg/dL 3.6-8 L Lab Interpretation (test code = Abnormal 60812-3) [facility]woodSEDIMENTATION [id number] 05:25:00 Test Item Value Reference Range Interpretation Comments ESR (test code = See_Comment H [Automated message] 7721978133) The system [employer] h generated this result transmitted ref erence range: 0 - 10 m m/HR. The reference r corey was not used to interpret this result as normal/abnor mal. Lab Interpretation (test Abnormal code = 37895-6) [facility]woodN-TERMINAL [id number] 04:07:00 Test Item Value Reference Range Interpretation Comments NT-proBNP (test code 4080 pg/mL See_Comment H [Autom ated = 9174346792) message] The system which generated this result transmitted reference range : <=450. The reference range was not used to interpret this result as normal/abnormal . ALYSSA (test code = ALYSSA) Biotin has been reported to cause a negative bias, interpret results relative to patient's use of biotin. Lab Interpretation Abnormal (test code = 24962-0) [facility]woodPOCT GLUCOSE (AUTOMATED)2020-03-01 03:42:00 Test Item Value Reference Range Interpretation Comments POCT GLU (test code = 9100138722) 190 mg/dL 70-110 H Lab Interpretation (test code = Abnormal 01230-0) [facility]woodTROPONIN [id number] 03:30:00 Test Item Value Reference Range Interpretation Comments TROPONIN I (test 0.098 ng/mL See_Comment H [Automated code = 2730859584) message] The system which generated this result [...] ? Lab Interpretation Abnormal (test code = 92021-9) [facility]woodHEPATIC FUNCTION PANEL (64558) (ALB,T.PRO,BILI T,BU/BC,ALT,AST,ALK PHOS)2020-03-01 03:24:00 Test Item Value Reference Range Interpretation Comments TOTAL BILI (test code = 3779863152) 2.2 mg/dL 0.1-1.1 H BILI UNCON (test code = 2652973274) 2.0 mg/dL 0.1-1.1 H BILI CONJ (test code = 6668676679) 0.0 mg/dL 0-0.3 T PROTEIN (test code = 9012774125) 6.7 g/dL 6.3-8.2 ALBUMIN (test code = 7117242225) 4.0 g/dL 3.5-5 ALK PHOS (test code = 1720802826) 48 U/L 34-122 ALTv (test code = 1742-6) 18 U/L 5-50 AST(SGOT) (test code = 8850204762) 57 U/L 13-40 H Lab Interpretation (test code = Abnormal 50280-7) [facility] BrownwoodPhosphorus [id number] 03:17:00 Test Item Value Reference Range Interpretation Comments PHOSPHORUS (test code = 3.1 mg/dL 2.5-5 Slig ht hemolysis 9640509745) Lab Interpretation (test Normal code = 82263-2) [facility] BrownwoodPROTHROMBIN TIME / [id number] 03:08:00 Test Item Value Reference Range Interpretation [...] tions. Lab Interpretation (test Normal code = 06800-3) [facility]woodCREATINE [id number] 03:01:00 Test Item Value Reference Range Interpretation Comments CK (test code = 2360597944) 68 U/L 33-194 Lab Interpretation (test code = Normal 98299-3) [facility]woodURIC [id number] 02:41:00 Test Item Value Reference Range Interpretation Comments URIC ACID (test code = 4378449313) 2.3 mg/dL 3.6-8 L Lab Interpretation (test code = Abnormal 64838-2) [facility] BrownwoodTHYROID STIMULATING [id number] 02:26:00 Test Item Value Reference Range Interpretation Comments TSH (test code = See_Comment [Automated message] 9164009382) The system [employer] h generated this result transmitted ref erence range: 0.45 - 4 .70 mIU/L. The refe rence range was not u sed to interpret this result as normal/abnor mal. Lab Interpretation (test Normal code = 48267-8) [facility]woodN-TERMINAL [id number] 02:04:00 Test Item Value Reference Range Interpretation Comments NT-proBNP (test code 4390 pg/mL See_Comment H [Autom ated = 4866393102) message] The system which generated this result transmitted reference range : <=450. The reference range was not used to interpret this result as normal/abnormal . ALYSSA (test code = ALYSSA) Biotin has been reported to cause a negative bias, interpret results relative to patient's use of biotin. Lab Interpretation Abnormal (test code = 27537-2) [facility]woodMAGNESIUM2020-04-16 02:01:00 Test Item Value Reference Range Interpretation Comments MAGNESIUM (test code = 1716120327) 1.5 mg/dL 1.7-2.4 L Lab Interpretation (test code = Abnormal 66519-5) [facility]woodLIPASE2020-04-16 00:22:00 Test Item Value Reference Range Interpretation Comments LIPASE (test code = 9136610272) 68 U/L 0-220 Lab Interpretation (test code = Normal 98990-0) [facility]woodCORONAVIRUS COVID-19 [id number] 23:42:00 Test Item Value Reference Range Interpretation Comments SARS-CoV-2 (test code = Not Detected Not Detected 06791-1) ALYSSA (test code = ALYSSA) ID NOW COVID-19 Assay is an isothermal nucleic acid amplification test intended for the qualitative detection of nucleic acid from SARS-CoV-2 viral RNA in nasopharyngeal (DEVELOPMENT TRAINER) specimens. It is used under Emergency Use [...] indicated. Lab Interpretation Normal (test code = 72322-1) [facility] BrownwoodXR CHEST 1 VW [id number] 23:26:02 No acute intrathoracic abnormality, specifically no radiographic findingsto suggest COVID-19 pneumonia. Disclaimer: Generally, the findings on chest imaging in COVID-19 are notspecific, and overlap with other infections, including influenza, H1N1,SARS and MERS. According to the Centers for Disease Control (CDC) and recent statement ofthe [employer], viral testing remains the only specificmethod of diagnosis. Confirmation with the viral test is required, even ifradiologic findingsare suggestive of COVID-[address]. Preliminary Report Dictated by Resident: Radu Boo ?MD. Bindu, have reviewed this study and agree with [...] Disease Control (CDC) and recent statement ofthe [employer], viral testing remains the only specificmethod of diagnosis. Confirmation with the viral test is required, even ifradiologic findings are suggestive of COVID-[address]. Preliminary Report Dictated by Resident: Radu Boo MD., have reviewed this study and agree with theabovereport.[facility] BrownwoodKarinopoab [id number] 22:59:00 Test Item Value Reference Range Interpretation Comments TROPONIN I (test 0.071 ng/mL See_Comment H [Automated code = 6177626319) message] The system which generated this result [...] ? Lab Interpretation Abnormal (test code = 50114-9) [facility] (NA, K, CL, CO2, GLUCOSE, BUN, CREATININE, CA)2020-02-29 22:48:00 Test Item Value Reference Range Interpretation Comments NA (test code = 141 mmol/L 135-145 1242183738) K (test code = 3.2 mmol/L 3.5-5 L 0002926354) CL (test code = 104 mmol/L 98-108 9282699385) CO2 TOTAL (test code = 25 mmol/L 23-31 2139858169) AGAP (test code = 2-16 3496955464) BUN (test code = 12 mg/dL 7-23 0364483985) GLUCOSE (test code = 250 mg/dL 70-110 H 9206814645) CREATININE (test code = 1.02 mg/dL 0.6-1.25 8202863542) CALCIUM (test code = 8.9 mg/dL 8.6-10.6 0851835916) eGFR Calculation mL/min/1.73m2 (Non-) (test code = 1653278945) eGFR Calculation mL/min/1.73m2 () (test code = 5055328920) ALYSSA (test code = ALYSSA) Association of [...] tests). Lab Interpretation Abnormal (test code = 42123-1) [facility] WITH [id number] 22:41:00 Test Item Value Reference Range Interpretation [...] RDW-SD (test code = 46.6 fL 38.5-51.6 22102-3) RDW-CV (test code = 14.6 % 12.1-15.4 788-0) PLT (test code = See_Comment [Automated 777-3) message] The sy stem which generated this result transmitted reference range : 150 - 328 10*3/ ?L. The reference r corey was not used to interpret this result as normal/abnormal . MPV (test code = 9.7 fL 9.8-13 L 40809-0) NRBC/100 WBC (test See_Comment [Automat ed code = 0111234561) message] The system which generated this result transmitted reference range : 0.0 - 10.0 /100 WBCs. The refer ence range was not u sed to interpret th is result as normal/abnormal . NRBC x10^3 (test code <0.01 See_Comment [Auto mated = 5492563320) message] The s ystem which generated this result transmitted reference range : 10*3/?L. The reference range was not used to interpret this result as normal/abnormal . GRAN MAT (NEUT) % 68.6 % (test code = 770-8) IMM GRAN % (test code 0.30 % = 4129062902) LYMPH % (test code = 18.6 % 736-9) MONO % (test code = 10.1 % 5905-5) EOS % (test code = 1.8 % 713-8) BASO % (test code = 0.6 % 706-2) GRAN MAT x10^3(ANC) 4.29 10*3/uL 1.99-6.95 (test code = 8234742313) IMM GRAN x10^3 (test <0.03 0-0.06 code = 7111126677) LYMPH x10^3 (test code 1.16 10*3/uL 1.09-3.23 = 731-0) MONO x10^3 (test code 0.63 10*3/uL 0.36-1.02 = 742-7) EOS x10^3 (test code = 0.11 10*3/uL 0.06-0.53 711-2) BASO x10^3 (test code 0.04 10*3/uL 0.01-0.09 = 704-7) Lab Interpretation Abnormal (test code = 11058-7) [facility]woodLactic Acid Whole [id number] 22:38:00 Test Item Value Reference Range Interpretation Comments LACTIC ACID (test code = 1.88 mmol/L 0.3-2.6 0539128286) [facility]woodPO[facility] GL[facility]SE ([facility]OMATED)2020-01-17 18:18:00 Test Item Value Reference Range Interpretation Comments POCT GLU (test code = 6059829501) 290 mg/dL 70-110 H Lab Interpretation (test code = Abnormal 48050-7) [facility] BrownwoodTROPONIN [id number] 18:01:00 Test Item Value Reference Range Interpretation Comments TROPONIN I (test 0.065 ng/mL See_Comment H [Automated code = 5882154825) message] The system which generated this result [...] ? Lab Interpretation Abnormal (test code = 97067-1) [facility]woodaPTT2020-03-03 17:10:00 Test Item Value Reference Range Interpretation Comments APTT Patient (test See_Comment H [Automat ed code = 3173-2) message] The system which generated this result transmitted reference range : 23 - 38 Seconds . The reference range was not used to interpr et this result as normal/abnormal . ALYSSA (test code = ALYSSA) The [facility] patient population mean normal value for aPTT is 30 seconds. Lab Interpretation Abnormal (test code = 61665-8) [facility]woodPOAK GLUCOSE (AUTOMATED)2020-01-17 11:59:00 Test Item Value Reference Range Interpretation Comments POCT GLU (test code = 0321417551) 185 mg/dL 70-110 H Lab Interpretation (test code = Abnormal 82645-8) [facility] BrownwoodTROPONIN [id number] 11:23:00 Test Item Value Reference Range Interpretation Comments TROPONIN I (test 0.073 ng/mL See_Comment H [Automated code = 9710314605) message] The system which generated this result [...] ? Lab Interpretation Abnormal (test code = 85884-3) [facility] Met[facility] Panel (NA, K, CL, CO2, GLUCOSE, BUN, CREATININE, CA)2020-01-17 11:16:00 Test Item Value Reference Range Interpretation Comments NA (test code = 136 mmol/L 135-145 4915706989) K (test code = 3.3 mmol/L 3.5-5 L 3207168858) CL (test code = 101 mmol/L 98-108 5913253060) CO2 TOTAL (test code = 26 mmol/L 23-31 2328641396) AGAP (test code = 2-16 1846061816) BUN (test code = 19 mg/dL 7-23 6521172383) GLUCOSE (test code = 227 mg/dL 70-110 H 0279356777) CREATININE (test code = 1.33 mg/dL 0.6-1.25 H 1121865267) CALCIUM (test code = 9.1 mg/dL 8.6-10.6 0464931814) eGFR Calculation mL/min/1.73m2 (Non-) (test code = 5989227204) eGFR Calculation mL/min/1.73m2 () (test code = 9263929020) ALYSSA (test code = ALYSSA) Association of [...] tests). Lab Interpretation Abnormal (test code = 40409-1) [facility]woodaPTT2020-03-03 11:00:00 Test Item Value Reference Range Interpretation Comments APTT Patient (test See_Comment H [Automat ed code = 3173-2) message] The system which generated this result transmitted reference range : 23 - 38 Seconds . The reference range was not used to interpr et this result as normal/abnormal . ALYSSA (test code = ALYSSA) The [facility] patient population mean normal value for aPTT is 30 seconds. Lab Interpretation Abnormal (test code = 94589-6) [facility] WITH [id number] 10:43:00 Test Item Value Reference Range Interpretation Comments WBC (test code = See_Comment [Automated message] 6690-2) The system [employer] generated this result transmitted ref erence range: 4.20 - 1 0.70 10*3/?L. The re ference range was not u sed to interpret this result as normal/abnor mal. RBC (test code = See_Comment [Automated message] 789-8) The system [employer] generated this result transmitted ref erence range: [...] RDW-SD (test code 41.5 fL 38.5-51.6 = 27351-1) RDW-CV (test code 12.8 % 12.1-15.4 = 788-0) PLT (test code = See_Comment [Automated message] 107-3) The system [employer] generated this result transmitted ref erence range: 150 - 32 8 10*3/?L. The re ference range was not u sed to interpret this result as normal/abnor mal. MPV (test code = 10.7 fL 9.8-13 98971-4) NRBC/100 WBC (test See_Comment [Automat ed message] code = 9516202480) The syste m which generated this result transmitted ref erence range: 0.0 - 10 .0 /100 WBCs. The refer ence range was not u sed to interpret this result as normal/abnor mal. NRBC x10^3 (test <0.01 See_Comment [Automated message] code = 6602432317) The syste m which generated this result transmitted ref erence range: 10*3/?L. The reference range was not used to interpr et this result as normal/abnormal . GRAN MAT (NEUT) % 56.1 % (test code = 770-8) IMM GRAN % (test 0.30 % code = 1030737157) LYMPH % (test code 29.5 % = 736-9) MONO % (test code 9.9 % = 5905-5) EOS % (test code = 3.3 % 713-8) BASO % (test code 0.9 % = 706-2) GRAN MAT 3.73 10*3/uL 1.99-6.95 x10^3(ANC) (test code = 2270339403) IMM GRAN x10^3 <0.03 0-0.06 (test code = 5946535692) LYMPH x10^3 (test 1.96 10*3/uL 1.09-3.23 code = 731-0) MONO x10^3 (test 0.66 10*3/uL 0.36-1.02 code = 742-7) EOS x10^3 (test 0.22 10*3/uL 0.06-0.53 code = 711-2) BASO x10^3 (test 0.06 10*3/uL 0.01-0.09 code = 704-7) [facility] GLUCOSE (AUTOMATED)2020-01-17 01:49:00 Test Item Value Reference Range Interpretation Comments POCT GLU (test code = 3374058057) 305 mg/dL 70-110 H Lab Interpretation (test code = Abnormal 14660-1) [facility]2020-01-17 00:01:00 Test Item Value Reference Range Interpretation Comments POCT GLU (test code = 7517319749) 271 mg/dL 70-110 H Lab Interpretation (test code = Abnormal 10017-7) [facility]2020-[facility]-02 22:23:00 Test Item Value Reference Range Interpretation Comments APTT Patient (test See_Comment H [Automat ed code = 3173-2) message] The system which generated this result transmitted reference range : 23 - 38 Seconds . The reference range was not used to interpr et this result as normal/abnormal . ALYSSA (test code = ALYSSA) The [facility] patient population mean normal value for aPTT is 30 seconds. Lab Interpretation Abnormal (test code = 88450-8) [facility]wood[facility] [id number] 21:22:00 Test Item Value Reference Range Interpretation Comments TROPONIN I (test 0.061 ng/mL See_Comment H [Automated code = 9943812953) message] The system which generated this result [...] ? Lab Interpretation Abnormal (test code = 64977-6) [facility]2020-01-16 17:37:00 Test Item Value Reference Range Interpretation Comments POCT GLU (test code = 5903755269) 271 mg/dL 70-110 H Lab Interpretation (test code = Abnormal 83672-6) [facility]2020-03-02 12:47:00 Test Item Value Reference Range Interpretation Comments APTT Patient (test See_Comment HH [Automat ed code = 3173-2) message] The system which generated this result transmitted reference range : 23 - 38 Seconds . The reference range was not used to interpr et this result as normal/abnormal . ALYSSA (test code = ALYSSA) The [facility] patient population mean normal value for aPTT is 30 seconds. Lab Interpretation Abnormal (test code = 25010-4) [facility]wood[facility] [id number] 12:35:00 Test Item Value Reference Range Interpretation Comments TROPONIN I (test 0.074 ng/mL See_Comment H [Automated code = 1804021372) message] The system which generated this result [...] ? Lab Interpretation Abnormal (test code = 59971-1) [facility]woodLIP[facility] (11725)(TOTAL CHOLESTEROL, TRIGLYCERIDES, HDL)2020-01-16 12:23:00 Test Item Value Reference Range Interpretation Comments CHOL (test code = 95 mg/dL 120-200 L 6668938907) HDL (test code = 44 mg/dL >40 1795850592) HDLC RATIO (test code = See_Comment [Au tomated message] 3723051553) The system [employer] generated this result transmitted ref erence range: <=5.0. T he reference range was not used to int erpret this result as normal/abnormal . TRIG (test code = 89 mg/dL 30-170 4376509724) LDL CHOL (test code = 33 mg/dL See_Comment [Auto mated message] 68758-7) The system [employer] generated this result transmitted ref erence range: <=160. T he reference range was not used to int erpret this result as normal/abnormal . VLDL (test code = 18 mg/dL 5-60 6968410946) Lab Interpretation (test Abnormal code = 82959-0) [facility]woodGlycosylated Hemoglobin (A1C)2020-01-16 09:03:00 Test Item Value Reference [...] Indicated Lab Interpretation Abnormal (test code = 33171-7) [facility]woodCritical [id number] 05:48:18Charanjit Heck MD ? ? 01/15/2020 11:48 [...] review of old charts and examination of [facility]UnBro[facility] CenterProthrombin Time (PT) / [id number] 05:28:00 Test Item Value Reference Range Interpretation [...] tions. Lab Interpretation (test Normal code = 32321-4) [facility]2020-03-02 05:27:00 Test Item Value Reference Range Interpretation Comments APTT Patient (test See_Comment [Automat ed code = 3173-2) message] The system which generated this result transmitted reference range : 23 - 38 Seconds . The reference range was not used to interpr et this result as normal/abnormal . ALYSSA (test code = ALYSSA) The [facility] patient population mean normal value for aPTT is 30 seconds. Lab Interpretation Normal (test code = 64300-0) [facility]woodTroponin [id number] 05:11:00 Test Item Value Reference Range Interpretation Comments TROPONIN I (test 0.075 ng/mL See_Comment H [Automated code = 0847719795) message] The system which generated this result [...] ? Lab Interpretation Abnormal (test code = 01864-4) [facility]woodN-TERMINAL [id number] 05:08:00 Test Item Value Reference Range Interpretation Comments NT-proBNP (test code 896 pg/mL See_Comment H [Autom ated = 5951557619) message] The system which generated this result transmitted reference range : <=450. The reference range was not used to interpret this result as normal/abnormal . ALYSSA (test code = ALYSSA) Biotin has been reported to cause a negative bias, interpret results relative to patient's use of biotin. Lab Interpretation Abnormal (test code = 89731-6) [facility]wood[facility]asi Metabolic Panel (NA, K, CL, CO2, GLUCOSE, BUN, CREATININE, CA)2020-01-16 04:59:00 Test Item Value Reference Range Interpretation Comments NA (test code = 136 mmol/L 135-145 8916119771) K (test code = 4.0 mmol/L 3.5-5 3357702900) CL (test code = 101 mmol/L 98-108 1545603265) CO2 TOTAL (test code = 27 mmol/L 23-31 4031960468) AGAP (test code = 2-16 9198212428) BUN (test code = 17 mg/dL 7-23 4158896834) GLUCOSE (test code = 445 mg/dL 70-110 H 3990194316) CREATININE (test code = 1.29 mg/dL 0.6-1.25 H 3915720749) CALCIUM (test code = 8.8 mg/dL 8.6-10.6 6328201583) eGFR Calculation mL/min/1.73m2 (Non-) (test code = 8057349185) eGFR Calculation mL/min/1.73m2 () (test code = 1119609614) ALYSSA (test code = ALYSSA) Association of [...] tests). Lab Interpretation Abnormal (test code = 13619-1) [facility]wood[facility]atic Function Panel (ALB, T.PRO, BILI T, BU/BC, ALT, AST, ALK PHOS)2020-01-16 04:59:00 Test Item Value Reference Range Interpretation Comments TOTAL BILI (test code = 6616119580) 1.3 mg/dL 0.1-1.1 H BILI UNCON (test code = 3848740482) 1.1 mg/dL 0.1-1.1 BILI CONJ (test code = 9810837703) 0.0 mg/dL 0-0.3 T PROTEIN (test code = 5987425401) 6.3 g/dL 6.3-8.2 ALBUMIN (test code = 3121431856) 3.9 g/dL 3.5-5 ALK PHOS (test code = 6064567233) 67 U/L 34-122 ALTv (test code = 1742-6) 15 U/L 5-50 AST(SGOT) (test code = 2103583459) 23 U/L 13-40 Lab Interpretation (test code = Abnormal 17432-3) [facility] 1 [id number] 04:54:13Impression: Moderate cardiomegaly without acute pulmonary process. RL: 460 AFC: [id number] Indication: Chest pain Comparison: None available Findings: Single AP view of the chest. The cardiopericardial silhouette ismoderately enlarged. The lungs are clear bilaterally. The visualized bonythorax is intact. A thoracic neurostimulator device is in place. [facility], Radiant Results Inft User - 01/15/2020 10:55 PM CSTIndication: Chest painComparison: None availableFindings: Single AP view of the chest. The cardiopericardial silhouette ismoderately enlarged. The lungs are clear bilaterally. The visualized bonythorax is intact. A thoracic neurostimulator device is in place.IMPRESSIONImpression:Moderate cardiomegaly without acute pulmonary process.RL: 460AFC: [id number] signed by Esperanza Rosado MD, PhD at 01/15/2020 10:54 [facility]UnKim[facility] WITH [id number] 04:51:00 Test Item Value Reference Range Interpretation Comments WBC (test code = See_Comment [Automated 7090-2) message] The sy stem which generated this result transmitted reference range : 4.20 - 10.70 10*3/?L. The reference range was not used to interpret this result as normal/abnormal . RBC (test code = See_Comment L [Automated 219-8) message] The sy stem which generated this [...] RDW-SD (test code = 40.7 fL 38.5-51.6 03735-0) RDW-CV (test code = 12.8 % 12.1-15.4 788-0) PLT (test code = See_Comment L [Automated 777-3) message] The sy stem which generated this result transmitted reference range : 150 - 328 10*3/ ?L. The reference r corey was not used to interpret this result as normal/abnormal . MPV (test code = 10.6 fL 9.8-13 19847-5) IPF % (test code = 2.8 % 1.2-10.7 Platelet count 5617277716) measured by fluorescence method. NRBC/100 WBC (test See_Comment [Automat ed code = 8803249813) message] The system which generated this result transmitted reference range : 0.0 - 10.0 /100 WBCs. The refer ence range was not u sed to interpret th is result as normal/abnormal . NRBC x10^3 (test code <0.01 See_Comment [Auto mated = 4091757127) message] The s ystem which generated this result transmitted reference range : 10*3/?L. The reference range was not used to interpret this result as normal/abnormal . GRAN MAT (NEUT) % 56.0 % (test code = 770-8) IMM GRAN % (test code 0.20 % = 6792116185) LYMPH % (test code = 30.5 % 736-9) MONO % (test code = 9.6 % 5905-5) EOS % (test code = 2.8 % 713-8) BASO % (test code = 0.9 % 706-2) GRAN MAT x10^3(ANC) 2.98 10*3/uL 1.99-6.95 (test code = 5321648036) IMM GRAN x10^3 (test <0.03 0-0.06 code = 5293053408) LYMPH x10^3 (test code 1.62 10*3/uL 1.09-3.23 = 731-0) MONO x10^3 (test code 0.51 10*3/uL 0.36-1.02 = 742-7) EOS x10^3 (test code = 0.15 10*3/uL 0.06-0.53 711-2) BASO x10^3 (test code 0.05 10*3/uL 0.01-0.09 = 704-7) Lab Interpretation Abnormal (test code = 72257-9) [facility]"
[2022-03-27 06:22] LABS: Absolute Lymphocytes (CBC) 1.2 K/uL (0.7-4.9); Hematocrit 34.9 % (39.6-49.0); Lymphocytes % 22.1 % (15.3-44.8); MPV 8.2 fL (7.6-11.3); RBC Red Blood Cell Count 3.72 M/uL (4.33-5.43)
[2022-03-27] MEDS ORDERED: DIAZEPAM 5 MG TABLET ONE (06:24)
[2022-03-27] MEDS ORDERED: ONDANSETRON 4 MG/2 ML VIAL ONE (06:25)
[2022-03-27] MEDS ORDERED: NA CHLORIDE 0.9% 500 ML ONE (06:25)
[2022-03-27] MEDS ORDERED: HYDROMORPHONE HCL 0.5 MG/0.5 ML INJ ONE ×2 (06:25→06:50)
[2022-03-27] MEDS ORDERED: KETOROLAC 30 MG/ML INJ ONE (06:25)
[2022-03-27] MEDS ORDERED: dexAMETHasone 10 MG/ML VIAL ONE (06:25)
[2022-03-27 06:46] LABS: Bilirubin Total 0.6 mg/dL (0.2-1.0); Potassium 4.1 mmol/L (3.5-5.1); Protein, Total 6.2 g/dL (6.4-8.2)
--- NOTE | 2022-03-27 07:07 | EDPHYS ---
Physician Documentation [facility] Name: Demetrius Sarmiento Age: 81 yrs Sex: Male : 1940 Arrival Date: 03/27/2022 Time: 05:46 Bed 6 Private MD: DEVIN Physician Michael Ortega HPI: 03/27 06:03 This 81 yrs old Male presents to ER via EMS with complaints of LEFT LEG, HIP tadeo PAIN. 06:03 The patient presents with a deformity, pain. The complaints affect the lateral aspect tadeo of left thigh, left hamstring, medial aspect of left thigh and left quadriceps. Context: The problem was sustained at an unknown site, resulted from an unknown cause. Onset: The symptoms/episode began/occurred 2 day(s) ago. Modifying factors: The symptoms are alleviated by nothing. the symptoms are aggravated by nothing. Associated signs and symptoms: The patient has no apparent associated signs or symptoms. Treatment prior to arrival includes: no previous treatment. Severity of symptoms: At their worst the symptoms were moderate, in the emergency department the symptoms are unchanged. The patient has experienced similar episodes in the past, multiple times. Historical: - Allergies: 05:51 No Known Allergies; as6 - Home Meds: 05:51 aspirin 81 mg Oral TbEC 1 tab once daily [Active]; atorvastatin 40 mg Oral tab 1 tab as6 nightly [Active]; clopidogrel 75 mg Oral tab 1 tab once daily [Active]; donepezil 5 mg Oral tab 1 tab nightly [Active]; furosemide 20 mg Oral tab 1 tab once daily [Active]; Januvia 50 mg Oral tab 1 tab once daily [Active]; isosorbide mononitrate 120 mg Oral Tb24 1 tab once daily [Active]; potassium chloride 10 mEq Oral TbER 1 tab once daily [Active]; - PMHx: 05:51 CAD; cardiac arrest; CHF; chronic kidney disease; Chronic pain; Diabetes - IDDM; High 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 - Social history:: Smoking status: Patient denies any tobacco usage or history of. - Family history:: not pertinent. ROS: 06:03 Constitutional: Negative for fever, chills, and weight loss, Eyes: Negative for injury, tadeo pain, redness, and discharge, ENT: Negative for injury, pain, and discharge, Neck: Negative for injury, pain, and swelling, Cardiovascular: Negative for chest pain, palpitations, and edema, Respiratory: Negative for shortness of breath, cough, wheezing, and pleuritic chest pain, Abdomen/GI: Negative for abdominal pain, nausea, vomiting, diarrhea, and constipation, Back: Negative for injury and pain, : Negative for injury, bleeding, discharge, and swelling, Skin: Negative for injury, rash, and discoloration, Neuro: Negative for headache, weakness, numbness, tingling, and seizure, Psych: Negative for depression, anxiety, suicide ideation, homicidal ideation, and hallucinations, Allergy/Immunology: Negative for hives, rash, and allergies, Endocrine: Negative for neck swelling, polydipsia, polyuria, polyphagia, and marked weight changes, Hematologic/Lymphatic: Negative for swollen nodes, abnormal bleeding, and unusual bruising. 06:03 MS/extremity: Positive for decreased range of motion, pain, swelling, tenderness, of the left inner thigh, medial aspect of left thigh, left upper thigh and left quadriceps. Exam: 06:03 Constitutional: This is a well developed, well nourished patient who is awake, alert, tadeo and in no acute distress. Head/Face: Normocephalic, atraumatic. Eyes: Pupils equal round and reactive to light, extra-ocular motions intact. Lids and lashes normal. Conjunctiva and sclera are non-icteric and not injected. Cornea within normal limits. Periorbital areas with no swelling, redness, or edema. ENT: Nares patent. No nasal discharge, no septal abnormalities noted. Tympanic membranes are normal and external auditory canals are clear. Oropharynx with no redness, swelling, or masses, exudates, or evidence of obstruction, uvula midline. Mucous membranes moist. Neck: Trachea midline, no thyromegaly or masses palpated, and no cervical lymphadenopathy. Supple, full range of motion without nuchal rigidity, or vertebral point tenderness. No Meningismus. Chest/axilla: Normal chest wall appearance and motion. Nontender with no deformity. No lesions are appreciated. Cardiovascular: Regular rate and rhythm with a normal S1 and S2. No gallops, murmurs, or rubs. Normal PMI, no JVD. No pulse deficits. Respiratory: Lungs have equal breath sounds bilaterally, clear to auscultation and percussion. No rales, rhonchi or wheezes noted. No increased work of breathing, no retractions or nasal flaring. Abdomen/GI: Soft, non-tender, with normal bowel sounds. No distension or tympany. No guarding or rebound. No evidence of tenderness throughout. Back: No spinal tenderness. No costovertebral tenderness. Full range of motion. Male : Normal genitalia with no discharge or lesions. Skin: Warm, dry with normal turgor. Normal color with no rashes, no lesions, and no evidence of cellulitis. Neuro: Awake and alert, GCS 15, oriented to person, place, time, and situation. Cranial nerves II-XII grossly intact. Motor strength 5/5 in all extremities. Sensory grossly intact. Cerebellar exam normal. Normal gait. Psych: Awake, alert, with orientation to person, place and time. Behavior, mood, and affect are within normal limits. 06:03 Musculoskeletal/extremity: Extremities: grossly normal except: noted in the left hip, lateral aspect of left thigh, left upper thigh and left quadriceps: decreased ROM, pain. 06:59 Musculoskeletal/extremity: ROM: intact in all extremities, limited active range of tadeo motion due to pain, limited passive range of motion due to pain, in the left leg, Pulses: noted to be 4+ in the left femoral artery, left popliteal artery, left posterior tibial artery and left dorsalis pedis artery, Sensation intact. Compartment Syndrome exam of affected extremity: is normal. Joints: All joints are normal except Weight bearing: able to fully bear weight, DVT Exam: no pain, no swelling, no tenderness, negative Homans' sign noted on exam, no appreciated bluish discoloration, no erythema, no increased warmth. Vital Signs: 05:49 BP 114 / 62; Pulse 84 MON; Resp 18 S; Temp 98.3(TE); Pulse Ox 100% on R/A; Weight 77.11 as6 kg (R); Height 5 ft. 7 in. (170.18 cm) (R); Pain 10/10; 06:51 BP 104 / 80; Pulse 93; Resp 18 S; Pulse Ox 100% on R/A; as6 05:49 Body Mass Index 26.63 (77.11 kg, 170.18 cm) as6 NIH Stroke Scale Scores: 06:59 NIHSS Score: 0 tadeo MDM: 05:54 Patient medically screened. tadeo 06:09 Differential diagnosis: closed fracture. Data reviewed: vital signs, nurses notes, lab tadeo test result(s), radiologic studies, CT scan, plain films. Data interpreted: laboratory monitor: rate is 84 beats/min, rhythm is regular, Pulse oximetry: on room air. Test interpretation: by ED physician or midlevel provider: plain radiologic studies. Counseling: I had a detailed discussion with the patient and/or guardian regarding: the historical points, exam findings, and any diagnostic results supporting the discharge/admit diagnosis, lab results, radiology results, the need for outpatient follow up. 03/27 06:02 Order name: CBC with Diff; Complete Time: 07:02 [facility] 03/27 06:02 Order name: Comprehensive Metabolic Panel; Complete Time: 07:02 tadeo 03/27 06:02 Order name: Femur Left XRAY tadeo Administered Medications: 06:03 CANCELLED (Duplicate Order): Ketorolac 30 mg IVP once tadeo 06:29 Drug: Valium (diazepam) 5 mg Route: PO; as6 06:57 Follow up: Response: No adverse reaction as6 06:29 Drug: Zofran (Ondansetron) 4 mg Route: IVP; Site: right antecubital; as6 06:57 Follow up: Response: No adverse reaction as6 06:29 Drug: Dilaudid (HYDROmorphone) 0.5 mg Route: IVP; Site: right antecubital; as6 06:57 Follow up: Response: No adverse reaction; RASS: Alert and Calm (0) as6 06:29 Drug: Decadron - Dexamethasone 10 mg Route: IVP; Site: right antecubital; as6 06:57 Follow up: Response: No adverse reaction as6 06:29 Drug: NS 0.9% 500 ml Route: IV; Rate: bolus; Site: right antecubital; as6 06:58 Follow up: Response: No adverse reaction; IV Status: Completed infusion; IV Intake: as6 500ml 06:30 Drug: Ketorolac 15 mg Route: IVP; Site: right antecubital; as6 06:58 Follow up: Response: No adverse reaction as6 06:51 Drug: Dilaudid (HYDROmorphone) 0.5 mg Route: IVP; Site: right antecubital; as6 06:58 Follow up: Response: No adverse reaction; RASS: Alert and Calm (0) as6 Disposition Summary: 03/27/22 07:07 Discharge Ordered Location: Home tadeo Problem: new tadeo Symptoms: have improved tadeo Condition: Stable tadeo Diagnosis - Pain in left hip tadeo - Other chronic pain tadeo - Unspecified kidney failure - ACUTE ON CHRONIC tadeo Followup: tadeo - With: Private Physician - When: 2 - 3 days - Reason: Recheck today's complaints, Continuance of care, Re-evaluation by your physician Followup: tadeo - With: - When: 2 - 3 days - Reason: Recheck today's complaints, Re-evaluation by your physician Discharge Instructions: - Discharge Summary Sheet tadeo - Joint Pain tadeo - Arthritis tadeo - Chronic Back Pain tadeo - Chronic Pain, Adult tadeo - Musculoskeletal Pain tadeo - Hip Pain tadeo - Arthritis, [id number] [facility] Forms: - Medication Reconciliation Form tadeo - Thank You Letter [facility] - Antibiotic Education [facility] - Prescription Opioid Use [facility] Prescriptions: - Valium 2 mg Oral Tablet - take 1 tablet by ORAL route every 8 hours As needed; 20 tablet; Refills: 0, tadeo Product Selection Permitted - Motrin IB 200 mg Oral Tablet - take 1 tablet by ORAL route every 6 hours As needed as needed with food; 20 tadeo tablet; Refills: 0, Product Selection Permitted - Tylenol-Codeine #3 300 mg-30 mg Oral - take 2 tablet by ORAL route every 6 hours; 24 tablet; Refills: 0, Product tadeo Selection Permitted - dexamethasone 2 mg Oral tablet - take 1 tablet by ORAL route 2 times per day; 10 tablet; Refills: 0, Product la1 Selection Permitted NIH Stroke Scale - NIH Stroke Score Date: 03/27/2022 Time: 06:59 Total Score = 0 1a. Level of Consciousness (LOC) - 0(Alert) 1b. Level of Consciousness (LOC) (Month \T\ Age) - 0(Both) 1c. LOC Commands (Open \T\ Closes Eyes/Tobacco Sample Puller) - 0(Both) 2. Best Gaze (Lateral Gaze Paresis) - 0(Normal) 3. Visual Field Loss - 0(No visual loss) 4. Facial Palsy - 0(Normal) 5a. Left Arm: Motor (10-second hold) - 0(No drift) 5b. Right Arm: Motor (10-second hold) - 0(No drift) 6a. Left Leg: Motor (5-second hold - always test supine) - 0(No drift) 6b. Right Leg: Motor (5-second hold - always test supine) - 0(No drift) 7. Limb Ataxia (finger/nose \T\ heel/carrizales - test with eyes open) - 0(Absent) 8. Sensory Loss (pinprick arms/legs/face) - 0(Normal) 9. Best Language: Aphasia (description/naming/reading) - 0(No aphasia) 10. Dysarthria (speech clarity - read or repeat words) - 0(Normal) 11. Extinction and Inattention (visual/tactile/auditory/spatial/personal) - 0(No abnormality) Initials: tadeo Signatures: Dispatcher [employer] Michael Black MD MD cha Slawson, Ashby, RN RN as6 Corrections: (The following items were deleted from the chart) 06:03 06:02 Ketorolac 30 mg IVP once ordered. tadeo piedra
--- NOTE | 2022-03-27 07:07 | ER ---
Nurse's Notes [facility] Name: Demetrius Sarmiento Age: 81 yrs Sex: Male : 1940 Arrival Date: 03/27/2022 Time: 05:46 Bed 6 Private MD: Diagnosis: Pain in left hip;Other chronic pain;Unspecified kidney failure-ACUTE ON CHRONIC Presentation: 03/27 05:49 Chief complaint: Patient states: lower back pain that radiates to left hip and left as6 leg. Coronavirus screen: At this time, the client does not indicate any symptoms associated with coronavirus-19. Ebola Screen: No symptoms or risks identified at this time. Initial Sepsis Screen: Does the patient meet any 2 criteria? No. Patient's initial sepsis screen is negative. Does the patient have a suspected source of infection? No. Patient's initial sepsis screen is negative. Risk Assessment: Do you want to hurt yourself or someone else? Patient reports no desire to harm self or others. Onset of symptoms is unknown. 05:49 Method Of Arrival: [facility]: [facility] as6 05:49 Acuity: LANCE 3 as6 Historical: - Allergies: 05:51 No Known Allergies; as6 - Home Meds: 05:51 aspirin 81 mg Oral TbEC 1 tab once daily [Active]; atorvastatin 40 mg Oral tab 1 tab as6 nightly [Active]; clopidogrel 75 mg Oral tab 1 tab once daily [Active]; donepezil 5 mg Oral tab 1 tab nightly [Active]; furosemide 20 mg Oral tab 1 tab once daily [Active]; Januvia 50 mg Oral tab 1 tab once daily [Active]; isosorbide mononitrate 120 mg Oral Tb24 1 tab once daily [Active]; potassium chloride 10 mEq Oral TbER 1 tab once daily [Active]; - PMHx: 05:51 CAD; cardiac arrest; CHF; chronic kidney disease; Chronic pain; Diabetes - IDDM; High 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 - Social history:: Smoking status: Patient denies any tobacco usage or history of. - Family history:: not pertinent. Screenin:56 Abuse screen: Denies threats or abuse. Denies injuries from another. Nutritional as6 screening: No deficits noted. Tuberculosis screening: No symptoms or risk factors identified. Fall Risk None identified. Assessment: 05:55 General: Appears in no apparent distress. Behavior is calm, cooperative. Pain: as6 Complains of pain in left hip Pain radiates to left leg Quality of pain is described as radiating, sharp. Neuro: Level of Consciousness is awake, alert, obeys commands, Oriented to person, place, time, situation. Cardiovascular: JVD is absent Patient's skin is warm and dry. Respiratory: Respiratory effort is even, unlabored, Respiratory pattern is regular, symmetrical. 06:52 General: pt states slight improvement with pain . as6 07:39 Reassessment: Patient states feeling better. Pain: Pain currently is 4 out of 10 on a jh6 pain scale. Quality of pain is described as. Vital Signs: 05:49 BP 114 / 62; Pulse 84 MON; Resp 18 S; Temp 98.3(TE); Pulse Ox 100% on R/A; Weight 77.11 as6 kg (R); Height 5 ft. 7 in. (170.18 cm) (R); Pain 10/10; 06:51 BP 104 / 80; Pulse 93; Resp 18 S; Pulse Ox 100% on R/A; as6 05:49 Body Mass Index 26.63 (77.11 kg, 170.18 cm) as6 NIH Stroke Scale Scores: 06:59 NIHSS Score: 0 [facility] ED Course: 05:46 Patient arrived in ED. jb4 05:49 Sg Mann, RN is Primary Nurse. as6 05:51 Triage completed. as6 05:52 Arm band placed on. as6 05:54 Michael Ortega MD is Attending Physician. [facility] 05:56 Bed in low position. Call light in reach. Side rails up X2. Pulse ox on. NIBP on. as6 06:12 Inserted saline lock: 20 gauge in right antecubital area, using aseptic technique. as6 Blood collected. 06:31 Femur Left XRAY In Process Unspecified. EDMS 07:03 Oseas Quiros MD is Referral Physician. tadeo 07:40 IV discontinued, intact, bleeding controlled, No redness/swelling at site. Pressure jh6 dressing applied. Administered Medications: 06:03 CANCELLED (Duplicate Order): Ketorolac 30 mg IVP once tadeo 06:29 Drug: Valium (diazepam) 5 mg Route: PO; as6 06:57 Follow up: Response: No adverse reaction as6 06:29 Drug: Zofran (Ondansetron) 4 mg Route: IVP; Site: right antecubital; as6 06:57 Follow up: Response: No adverse reaction as6 06:29 Drug: Dilaudid (HYDROmorphone) 0.5 mg Route: IVP; Site: right antecubital; as6 06:57 Follow up: Response: No adverse reaction; RASS: Alert and Calm (0) as6 06:29 Drug: Decadron - Dexamethasone 10 mg Route: IVP; Site: right antecubital; as6 06:57 Follow up: Response: No adverse reaction as6 06:29 Drug: NS 0.9% 500 ml Route: IV; Rate: bolus; Site: right antecubital; as6 06:58 Follow up: Response: No adverse reaction; IV Status: Completed infusion; IV Intake: as6 500ml 06:30 Drug: Ketorolac 15 mg Route: IVP; Site: right antecubital; as6 06:58 Follow up: Response: No adverse reaction as6 06:51 Drug: Dilaudid (HYDROmorphone) 0.5 mg Route: IVP; Site: right antecubital; as6 06:58 Follow up: Response: No adverse reaction; RASS: Alert and Calm (0) as6 Medication: 05:56 VIS not applicable for this client. as6 Intake: 06:58 IV: 500ml; Total: 500ml. as6 Outcome: 07:07 Discharge ordered by MD. piedra 07:40 Discharged to home via wheelchair. [facility] 07:40 Condition: good 07:40 Discharge instructions given to patient, Instructed on discharge instructions, follow up and referral plans. Demonstrated understanding of instructions, follow-up care, medications, Prescriptions given X 4. 07:40 Patient left the ED. 6 NIH Stroke Scale - NIH Stroke Score Date: 03/27/2022 Time: 06:59 Total Score = 0 1a. Level of Consciousness (LOC) - 0(Alert) 1b. Level of Consciousness (LOC) (Month \T\ Age) - 0(Both) 1c. LOC Commands (Open \T\ Closes Eyes/Solar Sales Estimator) - 0(Both) 2. Best Gaze (Lateral Gaze Paresis) - 0(Normal) 3. Visual Field Loss - 0(No visual loss) 4. Facial Palsy - 0(Normal) 5a. Left Arm: Motor (10-second hold) - 0(No drift) 5b. Right Arm: Motor (10-second hold) - 0(No drift) 6a. Left Leg: Motor (5-second hold - always test supine) - 0(No drift) 6b. Right Leg: Motor (5-second hold - always test supine) - 0(No drift) 7. Limb Ataxia (finger/nose \T\ heel/carrizales - test with eyes open) - 0(Absent) 8. Sensory Loss (pinprick arms/legs/face) - 0(Normal) 9. Best Language: Aphasia (description/naming/reading) - 0(No aphasia) 10. Dysarthria (speech clarity - read or repeat words) - 0(Normal) 11. Extinction and Inattention (visual/tactile/auditory/spatial/personal) - 0(No abnormality) Initials: tadeo Signatures: Dispatcher [employer] Michael Black MD MD cha Bryson, James, RN RN jb4 Sg Mann, RN RN as6 Halle Huang, RN RN jh6
--- NOTE | 2022-03-27 07:25 | RAD REPORT ---
EXAM DESCRIPTION: RAD - Femur Left - 03/27/2022 6:29 am CLINICAL HISTORY: PAIN COMPARISON: Hip Left 2 View dated 03/25/2022 FINDINGS: No acute fracture. No malalignment. Mild left acetabular degenerative changes. Peripheral vascular calcifications. IMPRESSION: No acute osseous abnormality involving the left femur.
[2022-03-27 07:53] VITALS: TEMP 98.3; O2SAT 100
[2022-03-27 07:54] VITALS: BP 104/80
== END 2022-03-27 07:40 | disposition home or self-care (01) ==
LOC: ER 05:45
DX: G89.29 Other chronic pain (principal); E11.22 Type 2 diabetes mellitus with diabetic chronic kidney disease; I13.0 Hypertensive heart and chronic kidney disease with heart failure and stage 1 through stage 4 chronic kidney disease, or unspecified chronic kidney disease; N18.9 Chronic kidney disease, unspecified; I50.9 Heart failure, unspecified; Z79.82 Long term (current) use of aspirin; Z79.4 Long term (current) use of insulin
CPT/HCPCS: 85025; 36415; 80053; 73552; 96375; 96374; 99284; J1100; J1170 ×2; J7040; J2405

== ENCOUNTER 2022-04-07 01:43 | Emergency (ER) | payer OTHER ==
--- OUTSIDE RECORDS SUMMARY | 2022-04-07 01:56 | XMS REPORT | Continuity of Care Document ---
:1940 Author Organization [facility] t Address [address] [place] [address] Care Team Providers Name Role Phone Andres [...] Number Effective Date Expiration Date Stacy torres [facility] [id number] 2020 00:00:00 [facility] [id number] 2019 DUAL COMPLETE HMO 00:00:00 MEDICAID OF [place] [id number] 2018 00:00:00 Problems Condition Condition Condition Status Onset Resolution Last Treating Co mments Source Name Details Category Date Date Treatment Clinician Date Unstable Unstable Disease Active Unive rs angina angina 5-07 ity of 00:00: [place] 00 Medical Branch ALBA (acute ALBA (acute Disease Active 2020- U nivers kidney kidney 4-21 ity of injury) injury) 00:00: [place] 00 Medical Branch Chest pain Chest pain Disease Active 2019-0 U nivers 4-21 ity of 00:00: [place] [facility] Chest pain Chest pain Disease Active 2019- U 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 4-15 it y of 00:00: [place] 00 Medical Branch 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 00:00: [place] and and 00 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 2018-11 U nivers lobe lobe 1-06 ity of pneumonia pneumonia 00:00: [facility] s 00 Medical Branch PNA PNA Disease Active 2018-11 Univers (pneumonia (pneumonia 0-25 it y of ) ) 00:00: [place] 00 Medical Branch Acute on [...] on on 00:00: [place] 00 Medical Branch Type 2 Type 2 [...] 00:00: [place] involving involving 00 Medi bird[place] coronary 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 00:00: [place] disease disease 00 Medical Branch Coronary Coronary Disease Active Unive rs artery artery 1-27 ity of disease disease 00:00: [place] involving involving 00 Medi birdie [place] coronary 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 [...] [facility] Allergie 1-23 Clear s 00:00: [address] NO KNOWN Drug Active Univers ALLERGIE Class ity of S [facility] Social History Social Habit Start Date Stop Date Quantity Comments Source Exposure to Unable to assess Univers ity of SARS-CoV-2 (event) [facility] History of tobacco User of Univer sity of use smokeless [facility] [place] [facility] tobacco [place] Alcohol intake 2022-03-01 2022-03-01 Current University of 00:00:00 00:00:00 non-drinker of [facility] alcohol [place] (finding) Cigarettes smoked 2018-12-11 2018-12-11 Univers ity of current (pack per 00:00:00 00:00:00 [facility] ) - Reported Branch Cigarette 2018-12-11 2018-12-11 University of pack-years 00:00:00 00:00:00 [facility] Tobacco use and 2018-12-11 2018-12-11 Former user Universi ty of exposure 00:00:00 00:00:00 [facility] Sex Assigned At [birth year] Universit y of 00:00:00 00:00:00 [facility] Smoking Status Start Date Stop Date Source Former smoker 2018-12-11 00:00:00 2018-12-11 00:00:00 Universi ty of [facility] Medications Ordered Filled Start Stop Current Ordering Indication Dosage Frequency Signature Comments Components Source Medication Medication Date Date Medication? Clinician (SIG) Name Name FENTanyl PF No 25ug 25 mcg, Un mel (SUBLIMAZE 03-01 Intramuscu it y of (PF)) 16:45: 16:23 lar, ONCE, [place] injection 00 :00 1 dose, On Medi birdie 25 mcg [facility] 03/01/22 at 1145, Routine cyclobenzap No 10mg 10 mg, Uni vers rine 03-01 Oral, ity of (FLEXERIL) 14:00: 12:59 ONCE, 1 [place] tablet 10 00 :00 dose, On Medica l mg [facility] 03/01/22 at 0900, Routine HYDROcodone 2021- [...] 03/01/22 at 0900, 1 mL cyclobenzap Yes [id number] 10mg Take 1 Univers rine 10 mg 16 tablet by ity of tablet 00:00: mouth 3 [place] 00 (three) Medical times [place] daily as needed for Muscle Spasms. aspirin 81 2020-11- No [id number] 81mg Take 1 Univers mg chewable 2-12-04 tablet by it y of tablet 00:00: 05:59 mouth [place] 00 :00 daily for Medical 30 days. [place] clopidogreL 2020-11- No [id number] 75mg Take 1 Univers 75 mg 2-04 12- tablet by ity of tablet 00:00: 05:59 mouth [place] 00 :00 daily for Medical 30 days. [place] furosemide 2020-11- No [id number] 20mg Take 1 Univers 20 mg 2-04 12- tablet by ity of tablet 00:00: 05:59 mouth [place] 00 :00 daily for Medical 30 days. [place] aspirin 81 2020-11- No [id number] 81mg Take 1 Univers mg chewable 2-12-04 tablet by it y of tablet 00:00: 05:59 mouth [place] 00 :00 daily for Medical 30 days. [place] clopidogreL 2020-11- No [id number] 75mg Take 1 Univers 75 mg 2-04 12- tablet by ity of tablet 00:00: 05:59 mouth [place] 00 :00 daily for Medical 30 days. [place] furosemide 2020-11- No [id number] 20mg Take 1 Univers 20 mg 2-04 12- tablet by ity of tablet 00:00: 05:59 mouth [place] 00 :00 daily for Medical 30 days. [place] aspirin 81 2020-11- No [id number] 81mg Take 1 Univers mg chewable 2-04 12- tablet by it y of tablet 00:00: 05:59 mouth [place] 00 :00 daily for Medical 30 days. Branch clopidogreL 2020-11- No [id number] 75mg Take 1 Univers 75 mg 01-04- tablet by ity of tablet 00:00: 05:59 mouth [place] 00 :00 daily for Medical 30 days. Branch furosemide 2020-11- No [id number] 20mg Take 1 Univers 20 mg -04 12- tablet by ity of tablet 00:00: [...] Until Discontinu ed, Routine QUEtiapine 2020-11 Yes [id number] 25mg Take 1 Univers 25 mg 2-18 tablet by ity of tablet 00:00: mouth at [place] 00 bedtime as Medical needed Branch (agitation /insomnia) . QUEtiapine 2020-11 Yes [id number] 25mg Take 1 Univers 25 mg 2-18 tablet by ity of tablet 00:00: mouth at [place] 00 bedtime as Medical needed Branch (agitation /insomnia) . QUEtiapine 2020-11 Yes [id number] 25mg Take 1 Univers 25 mg 2-18 tablet by ity of tablet 00:00: mouth at [place] 00 bedtime as Medical needed Branch (agitation /insomnia) . QUEtiapine 2020-11 Yes [id number] 25mg Take 1 Univers 25 mg 2-18 tablet by ity of tablet 00:00: mouth at [place] 00 bedtime as Medical needed Branch (agitation /insomnia) . isosorbide 2020-11 No [id number] 60mg Take 1 Univers mononitrate 2-18 01-18 tablet by it y of 60 mg 24 hr 00:00: 05:59 mouth 2 [place] tablet 00 :00 (two) Medical times Branch daily for 30 days. metoprolol 2020-11- No [id number] 37.5mg Take 1.5 Univers succinate 2-18 -18 tablets by ity of XL 25 mg 24 00:00: 05:59 mouth 2 [place] hr tablet 00 :00 (two) Medical times Branch daily for 30 days. isosorbide 2020-11- No [id number] 60mg Take 1 Univers mononitrate 2-18 -18 tablet by it y of 60 mg 24 hr 00:00: 05:59 mouth 2 [place] tablet 00 :00 (two) Medical times Branch daily for 30 days. metoprolol 2020-11- No [id number] 37.5mg Take 1.5 Univers succinate 2-18 -18 tablets by ity of XL 25 mg 24 00:00: 05:59 mouth 2 [place] hr tablet 00 :00 (two) Medical times Branch daily for 30 days. isosorbide 2020-11- No [id number] 60mg Take 1 Univers mononitrate 2-18 -18 tablet by it y of 60 mg 24 hr 00:00: 05:59 mouth 2 [place] tablet 00 :00 (two) Medical times Branch daily for 30 days. metoprolol 2020-11- No [id number] 37.5mg Take 1.5 Univers succinate 2-18 -18 [...] QHSPRN, [place] mg 01 Starting Medical on [facility] Branch 11/01/21 at 0322, Until Discontinu ed, [...] [place] mg 00 First dose Medical on [facility] Branch 10/31/21 at 1730, Until Discontinu ed, Routine sulfur 2020-11- No [id number] 5mL 5 mL, Unive rs hexafluorid -10-31 Intravenou i ty of e microsphr 17:00: 17:00 s, ONCE, 1 [place] (LUMASON) 00 :00 dose, On Medica l injection 5 [place] Branch mL 10/31/21 at 1100, Routine
seafood service team member approving Restricted medication : MEGGAN CAMARA isosorbide 2020-11- No 120mg 120 mg, Un mel mononitrate 2-31 10- Oral, ity of (IMDUR) 24 15:00: 14:16 DAILY, [place] hr tablet 00 :38 First dose Medi birdie 120 mg on [facility] Branch 10/31/21 at 0900, Until Discontinu ed, Routine Sliding 2020-11 Yes Subcutaneo Univ ers Scale 2-16 us, AC+HS, ity of Insulin-Reg 13:30: First dose [place] ular + Fsbg 00 on [facility] Medica l Testing 10/31/21 Branch at 0730, Until Discontinu ed, Routine enoxaparin 2020-11- No 1mg/kg 80 mg Uni vers (LOVENOX) 01-0118 (rounded ity o f injection 09:00: 14:17 from 78 mg [place] 80 mg 00 :35 = 1 mg/kg Medical ?78 kg), Branch [facility], Q24H, First dose on [place] 10/31/21 at 0300, Until Discontinu ed, Routine aspirin 2020-11- No 325mg 325 mg, Unive rs tablet 325 01-01 Oral, ity of mg 08:45: 08:15 ONCE, 1 [place] 00 :00 dose, On Medical [facility] Branch 10/31/21 at 0245, Routine [...] IV Push, ity of (PF)) 05:32: Q6HPRN, [place] injection 4 10 Starting Medi birdie mg on Thu Branch 10/30/21 at 2332, Until Discontinu ed, Routine, Nausea and Vomiting (N/V) acetaminoph 2020-11 Yes 650mg 650 mg, Un mel en 2-16 Oral, ity of (TYLENOL) 05:31: Q6HPRN, [place] tablet 650 56 Starting Medic al mg on Thu Branch 10/30/21 at 2331, Until Discontinu ed, Routine, Pain (scale 1-3) acetaminoph 2020-11 Yes [id number] 1{tbl} 1 tablet, Univers en-codeine 2-16 Oral, ity of (TYLENOL 05:29: Q6HPRN, [place] #3) 300-30 29 Starting Medic al mg tablet 1 on Thu Branch tablet 10/30/21 at 2329, Until Discontinu ed, Routine, Pain (scale 4-6), Pain (scale 7-10) sodium 2020-11 Yes 5mL 5 mL, Univers chloride 2-16 Intravenou ity o f (NS) 01:21: s, PRN, [place] injection 5 02 Starting Medi birdie mL on Thu Branch 10/30/21 at 1921, Until Discontinu ed, Routine, IV line flushing morpHINE 2020- No 4mg 4 mg, Slow Un mel injection 4 04-25-10 IV Push, ity of mg 23:15: 22:23 ONCE, 1 [place] 00 :00 dose, [place] Medical 04/25/21 at Branch 1815, STAT acetaminoph 2020-2020- No 1{tbl} 1 tablet, Univers en-codeine 6-10 Oral, ity of (TYLENOL 19:00: 17:52 ONCE, 1 [place] #3) 300-30 00 :00 dose, [place] Medi birdie mg tablet 1 04/25/21 at Br anch tablet 1400, ADAMA cyclobenzap 0 2020- No 10mg 10 mg, Uni vers rine 04-25 06-10 Oral, ONCE ity of (FLEXERIL) 19:00: 17:52 NOW, 1 [place] tablet 10 00 :00 dose, [place] Medic al mg 04/25/21 at Branch 1400, [place]AMA cyclobenzap 0 Yes [id number] 5mg Take 1 Univers rine 5 mg 6-10 tablet by ity o f tablet 00:00: mouth 3 [place] 00 (three) Medical times Branch daily. cyclobenzap 0 Yes [id number] 5mg Take 1 Univers rine 5 mg 6-10 tablet by ity o f tablet 00:00: mouth 3 [place] 00 (three) Medical times Branch daily. cyclobenzap Yes [id number] 5mg Take 1 Univers rine 5 mg 6-10 tablet by ity o f tablet 00:00: mouth 3 (three) Medical times Branch daily. acetaminoph Yes [id number] 1{tbl} Take 1 Un mel en-codeine 6-10 tablet by ity of 300-30 mg 00:00: mouth [place] tablet 00 every 6 Medical (six) Branch hours as needed for Pain (scale 4-6). Indication s: acute pain, left sided low back pain cyclobenzap Yes [id number] 5mg Take 1 Univers rine 5 mg 6-10 tablet by ity o f tablet 00:00: mouth 3 (three) Medical times Branch daily. acetaminoph Yes [id number] 1{tbl} Take 1 Un mel en-codeine 6-10 tablet by ity of 300-30 mg 00:00: mouth [place] tablet 00 every 6 Medical (six) Branch hours as needed for Pain (scale 4-6). Indication s: acute pain, left sided low back pain cyclobenzap Yes [id number] 5mg Take 1 Univers rine 5 mg 6-10 tablet by ity o f tablet 00:00: mouth 3 00 (three) Medical times Branch daily. cyclobenzap 2021- No [id number] 5mg Take 1 Univers rine 5 mg 6-10 04-16 tablet by ity of tablet 00:00: 00:00 mouth 3 [place] 00 :00 (three) Medical times Branch daily. acetaminoph 1- No [id number] 1{tbl} Take 1 U nivers [...] 2020- No 1000mg 1,000 mg, Univers en 05-24-09 Oral, ity of (TYLENOL) 16:00: 14:49 ONCE, 1 [place] tablet 00 :00 dose, [place] Medical 1,000 mg 05/24/20 at Branch 1100, ADAMA traMADol 50 2020-0 2020- No [id number] 50mg Take 1 Uni vers mg tablet 05-24-15 tablet by ity of 00:00: 04:59 mouth [...] [place] mg 00 First dose Medical on [facility] Branch 03/24/20 at 0900, Until Discontinu [...] [place] mg 00 First dose Medical on [facility] Branch 03/24/20 at 0900, Until Discontinu [...] Discontinu ed, Routine aspirin 81 2020-0 Yes [id number] 81mg Take 1 U nivers mg chewable 5-09 tablet by ity of tablet 00:00: mouth [place] 00 daily with Medical breakfast. [place] furosemide 2020-0 Yes [id number] 20mg Take 1 U nivers 20 mg 5-09 tablet by ity of tablet 00:00: mouth [place] 00 daily. [facility] aspirin 81 2020-0 Yes [id number] 81mg Take 1 U nivers mg chewable 5-09 tablet by ity of tablet 00:00: mouth [place] 00 daily with Medical breakfast. [place] furosemide 2020-0 Yes [id number] 20mg Take 1 U nivers 20 mg 5-09 tablet by ity of tablet 00:00: mouth [place] 00 daily. [facility] aspirin 81 2020-0 Yes [id number] 81mg Take 1 U nivers mg chewable 5-09 tablet by ity of tablet 00:00: mouth [place] 00 daily with Medical breakfast. [place] furosemide 2020-0 Yes [id number] 20mg Take 1 U nivers 20 mg 5-09 tablet by ity of tablet 00:00: mouth [place] 00 daily. [facility] aspirin 81 2020-0 Yes [id number] 81mg Take 1 U nivers mg chewable 5-09 tablet by ity of tablet 00:00: mouth [place] 00 daily with Medical breakfast. [place] furosemide 2020-0 Yes [id number] 20mg Take 1 U nivers 20 mg 5-09 tablet by ity of tablet 00:00: mouth [place] 00 daily. [facility] aspirin 81 2020-0 Yes [id number] 81mg Take 1 U nivers mg chewable 5-09 tablet by ity of tablet 00:00: mouth [place] 00 daily with Medical breakfast. [place] furosemide 2020-0 Yes [id number] 20mg Take 1 U nivers 20 mg 5-09 tablet by ity of tablet 00:00: mouth [place] 00 daily. [facility] aspirin 81 2020-0 Yes [id number] 81mg Take 1 U nivers mg chewable 5-09 tablet by ity of tablet 00:00: mouth [place] 00 daily with Medical breakfast. [place] furosemide 2020-0 Yes [id number] 20mg Take 1 U nivers 20 mg 5-09 tablet by ity of tablet 00:00: mouth [place] 00 daily. Medical Branch aspirin 81 2020-0 Yes [id number] 81mg Take 1 U nivers mg chewable 5-09 tablet by ity of tablet 00:00: mouth [place] 00 daily with Medical breakfast. Branch furosemide 2020-0 Yes [id number] 20mg Take 1 U nivers 20 mg 5-09 tablet by ity of tablet 00:00: mouth [place] 00 daily. Medical Branch aspirin 81 2020-0 Yes [id number] 81mg Take 1 U nivers mg chewable 5-09 tablet by ity of tablet 00:00: mouth [place] 00 daily with Medical breakfast. Branch furosemide 2020-0 Yes [id number] 20mg Take 1 U nivers 20 mg 5-09 tablet by ity of tablet 00:00: mouth [place] 00 daily. Medical Branch aspirin 81 2020-0 Yes [id number] 81mg Take 1 U nivers mg chewable 5-09 tablet by ity of tablet 00:00: mouth [place] 00 daily with Medical breakfast. Branch furosemide 2020-0 Yes [id number] 20mg Take 1 U nivers 20 mg 5-09 tablet by ity of tablet 00:00: mouth [place] 00 daily. Medical Branch aspirin 81 2020-0 202- No [id number] 81mg Take 1 Univers mg chewable 5-09 12-18 tablet by it y of tablet 00:00: 00:00 mouth [place] 00 :00 daily with Medical breakfast. Branch furosemide 2020-0 2021- No [id number] 20mg Take 1 Univers 20 mg 5-09 12-18 tablet by ity of tablet 00:00: 00:00 mouth [place] 00 :00 daily. Medical Branch isosorbide 2020-0 2020- No [id number] 90mg Take 3 Univers mononitrate 5-09 05-08 tablets by i ty of 30 mg 24 hr 00:00: 00:00 mouth [place] tablet 00 :00 daily. Medical Branch isosorbide 2020-0 2020- No [id number] 90mg Take 3 Univers mononitrate 5-09 05-08 tablets by i ty of 30 mg 24 hr 00:00: 00:00 mouth [place] tablet 00 :00 daily. Medical Branch maalox/lido 2020-0 2020- No 5mL 5 mL, Univ ers sydni 2 5-08 05-08 Oral, ity of %viscous 20:45: 20:56 ONCE, 1 [place] 1:1 00 :00 dose, Fri Medical suspension 03/23/20 at [facility] (COMPOUNDED 1545, ) Routine maalox/lido 2020-0 2020- No 5mL 5 mL, Univ [facility] 2 03-23 Oral, ity of %viscous 20:45: 20:56 ONCE, 1 [place] 1:1 00 :00 dose, Fri Medical suspension 03/23/20 at [facility] (COMPOUNDED 1545, ) Routine acetaminoph 2020-0 [...] :00 dose, Fri Medical (DEFINITY) 03/23/20 at [facility] injection 2 1030, mL Routine perflutren [...] IV Push, ity of mg 07:59: Q4HPRN, [place] 14 Starting Medical 03/23/20 Branch at 0259, Until Discontinu ed, Routine, Chest pain magnesium 2020-0 2020- No 2g 2 g, IV Univ ers sulfate in 03-23 Piggyback, it y of water 2 07:45: 07:49 ONCE, 1 [place] gram/50 mL 00 :00 dose, Fri Medi birdie (4 %) 03/23/20 at [place] infusion 2 0245, g Routine KCL 2020-0 2020- No 40meq 40 mEq, Univers (KLOR-CON 03-23 Oral, ity of M20) tablet 07:45: 07:27 ONCE, 1 [place] 40 mEq 00 :00 dose, Fri Medical 03/23/20 at [place] 0245, Routine magnesium 2020-0 2020- No 2g 2 g, IV Univ ers sulfate in 03-23 Piggyback, it y of water 2 07:45: 07:49 ONCE, 1 [place] gram/50 mL 00 :00 dose, Fri Medi birdie (4 %) 03/23/20 at [place] infusion 2 0245, g Routine KCL 2020-0 2020- No 40meq 40 mEq, Univers (KLOR-CON 03-23 Oral, ity of M20) tablet 07:45: 07:27 ONCE, 1 [place] 40 mEq 00 :00 dose, Fri Medical 03/23/20 at [place] 0245, Routine heparin 2020-0 Yes 12U/kg/ 12 [...] Cholecalcif 2020-0 2020- No Take by U darylers ann, [...] mouth. ity of Vitamin D3, 04:01: 00:00 [place] 2,000 unit 03 :00 Medical capsule Branch [...] Yes 650mg 650 mg, Un mel en -08 Oral, ity of (TYLENOL) 02:51: Q6HPRN, [place] [...] 1 [place] mg 00 :00 dose, [facility] 03/22/20 at Branch 2145, ADAMA aspirin 2020-0 2020- No 324mg 324 mg, Unive rs chewable 03-23-08 Oral, ity of tablet 324 02:37: 02:51 ONCE, 1 [place] mg 00 :00 dose, [facility] 03/22/20 at Branch 2145, [place]AMA isosorbide 2020-0 Yes [id number] 90mg Take 1.5 Univers mononitrate 5-08 tablets by it y of 60 mg 24 hr 00:00: mouth [place] tablet 00 daily. [facility] isosorbide 2020-0 Yes [id number] 90mg Take 1.5 Univers mononitrate 5-08 tablets by it y of 60 mg 24 hr 00:00: mouth [place] tablet 00 daily. [facility] isosorbide 2020-0 Yes [id number] 90mg Take 1.5 Univers mononitrate 5-08 tablets by it y of 60 mg 24 hr 00:00: mouth [place] tablet 00 daily. [facility] isosorbide 2020-0 Yes [id number] 90mg Take 1.5 Univers mononitrate 5-08 tablets by it y of 60 mg 24 hr 00:00: mouth [place] tablet 00 daily. [facility] isosorbide 2020-0 Yes [id number] 90mg Take 1.5 Univers mononitrate 5-08 tablets by it y of 60 mg 24 hr 00:00: mouth [place] tablet 00 daily. Medical Branch isosorbide 2020-0 Yes [id number] 90mg Take 1.5 Univers mononitrate 5-08 tablets by it y of 60 mg 24 hr 00:00: mouth [place] tablet 00 daily. Medical Branch isosorbide 2020-0 Yes [id number] 90mg Take 1.5 Univers mononitrate 5-08 tablets by it y of 60 mg 24 hr 00:00: mouth [place] tablet 00 daily. Medical Branch isosorbide 2020-0 Yes [id number] 90mg Take 1.5 Univers mononitrate 5-08 tablets by it y of 60 mg 24 hr 00:00: mouth [place] tablet 00 daily. Medical Branch isosorbide 2020-0 Yes [id number] 90mg Take 1.5 Univers mononitrate 5-08 tablets by it y of 60 mg 24 hr 00:00: mouth [place] tablet 00 daily. Medical Branch isosorbide 2020-0 2021- No [id number] 90mg Take 1.5 Univers mononitrate 5-08 12-18 tablets by i ty of 60 mg 24 hr 00:00: 00:00 mouth [place] tablet 00 :00 daily. Medical Branch acetaminoph 2020-0 2020- No [id number] 975mg Take 3 Univers en 325 mg 5-08 05-19 tablets by ity of tablet 00:00: 04:59 mouth [place] 00 :00 every 8 Medical (eight) Branch hours for 10 days. acetaminoph 2020-0 2020- No [id number] 975mg Take 3 Univers en 325 mg 5-08 05-19 tablets by ity of tablet 00:00: 04:59 mouth [place] 00 :00 every 8 Medical (eight) Branch hours for 10 days. acetaminoph 2020-0 2020- No [id number] 975mg Take 3 Univers en 325 mg 5-08 05-19 tablets by ity of tablet 00:00: 04:59 mouth [place] 00 :00 every 8 Medical (eight) Branch hours for 10 days. acetaminoph 2020-0 2020- No [id number] 975mg Take 3 Univers en 325 mg 5-08 05-19 tablets by ity of tablet 00:00: 04:59 mouth [place] 00 :00 every 8 Medical (eight) Branch hours for 10 days. acetaminoph 2020-0 2020- No [id number] 975mg Take 3 Univers en 325 mg 5-08 05-19 tablets by ity of tablet 00:00: 04:59 mouth [place] 00 :00 every 8 Medical (eight) Branch hours for 10 days. lidocaine 5 2019-2019- No [id number] 1{patch Apply 1 Univers % (700 508 05-09 } Patch to ity of mg/patch) 00:00: 04:59 area(s) [place] patch 00 :00 once now Medical for 1 Branch dose. lidocaine 5 2019- No [id number] 1{patch Apply 1 Univers % (700 5 05-09 } Patch to ity of mg/patch) 00:00: 04:59 area(s) [place] patch 00 :00 once now Medical for 1 Branch dose. lidocaine 5 2019- No [id number] 1{patch Apply 1 Univers % (700 5 05-08 } Patch to ity of mg/patch) 00:00: 00:00 area(s) [place] patch 00 :00 once now Medical for 1 Branch dose. lidocaine 5 2019- No [id number] 1{patch Apply 1 Univers % (700 03-23 05-08 } Patch to ity of mg/patch) 00:00: 00:00 area(s) [place] patch 00 :00 once now Medical for 1 Branch dose. glipiZIDE 2020-0 Yes 5mg 5 mg, Univers (GLUCOTROL) 4-23 Oral, ity of tablet 5 mg 14:00: DAILY, [place] 00 First dose Medical on [facility] 03/08/20 at 0900, Until Discontinu ed, Routine spironolact 2019- 2020- No [id number] 12.5mg Take 0.5 Univers one 25 mg 4-23 05-24 tablets by ity of tablet 00:00: 04:59 mouth [place] 00 :00 daily for Medical 30 days. Branch spironolact 2020-0 2020- No [id number] 12.5mg Take 0.5 Univers one 25 mg 4-23 05-24 tablets by ity of tablet 00:00: 04:59 mouth [place] 00 :00 daily for Medical 30 days. Branch spironolact 2020- 2020- No [id number] 12.5mg Take 0.5 Univers one 25 mg 4-23 05-24 tablets by ity of tablet 00:00: 04:59 mouth [place] 00 :00 daily for Medical 30 days. Branch spironolact 2020-0 2020- No [id number] 12.5mg Take 0.5 Univers one 25 mg 4-23 05-07 tablets by ity of tablet 00:00: 00:00 mouth [place] 00 :00 daily for Medical 30 days. Branch spironolact 2020-0 2020- No [id number] 12.5mg Take 0.5 Univers one 25 mg [...] Yes 1{capsu Take 1 U nivers onepezil -22 le} capsule by ity o f (NAMZARIC) 23:46: mouth [place] 28-10 mg 10 daily. Medical CSpX Branch folic 2020-0 Yes Take by Univers acid/vit B - mouth. ity of complex and 23:46: [place] C (B 10 Medical COMPLEX-VIT Branch RAZA C-FOLIC ACID ORAL) Cholecalcif 2020-0 Yes Take by Un mel ann, - mouth. ity of Vitamin D3, 23:46: [place] 2,000 unit 10 Medical capsule Branch MULTIVITAMI 2020-0 Yes Take by Un mel N ORAL - mouth. ity of 23:46: [place] 10 Medical Branch thiamine 2020-0 Yes 100mg [...] daily. [place] 29 :00 Medical Branch atorvastati 2020-0 2020- No 40mg Take 40 mg Univers n 40 mg -07 03-22 by mouth ity of tablet 20:15: 00:00 at [place] 29 :00 bedtime. Medical Branch temazepam 2020-0 Yes 15mg 15 mg, Univer s (RESTORIL) 4-22 Oral, ity of capsule 15 01:55: QHSPRN, [place] mg 38 Starting Medical Tue Branch 03/06/20 at 5, Until Discontinu ed, Routine, Insomnia Insulin 2020-0 Yes [id number] 10U inject 10 Univers Glargine 4-22 Units ity of 100 unit/mL 00:00: under the [place] (3 mL) 00 skin at Medical injection bedtime. Branch temazepam 2019-0 Yes [id number] 15mg Take 1 Un mel 15 mg 4-22 capsule by ity of capsule 00:00: mouth at [place] 00 bedtime as Medical needed for Branch Insomnia. furosemide 2020-0 Yes [id number] 40mg Take 1 Univers 40 mg 4-22 tablet by ity of tablet 00:00: mouth [place] 00 every Medical morning Branch and evening. Magnesium 2020-0 Yes [id number] 400mg Take 400 Univers Oxide 420 4-22 mg by ity of mg Tab 00:00: mouth [place] 00 daily. Medical Branch potassium 2020-0 Yes [id number] 20meq Take 20 Univers chloride 20 4-22 mEq by ity of mEq packet 00:00: mouth [place] 00 daily. Medical Take with Branch lasix in the morning isosorbide 2020-0 Yes [id number] 15mg Take 0.5 Univers mononitrate 4-22 tablets by it y of 30 mg 24 hr 00:00: mouth [place] tablet 00 daily. Medical Hold if Branch systolic blood pressure less than 120 Insulin 2020-0 Yes [id number] 10U inject 10 Univers Glargine 4-22 Units ity of 100 unit/mL 00:00: under the [place] (3 mL) 00 skin at Medical injection bedtime. Branch temazepam 2020-0 Yes [id number] 15mg Take 1 Un mel 15 mg 4-22 capsule by ity of capsule 00:00: mouth at [place] 00 bedtime as Medical needed for Branch Insomnia. furosemide 2020-0 Yes [id number] 40mg Take 1 [facility] 40 mg 4-22 tablet by ity of tablet 00:00: mouth [place] 00 every Medical morning Branch and evening. Magnesium 2020-0 Yes [id number] 400mg Take 400 [facility] Oxide 420 4-22 mg by ity of mg Tab 00:00: mouth [place] 00 daily. Medical Branch potassium 2020-0 Yes [id number] 20meq Take 20 [facility] chloride 20 4-22 mEq by ity of mEq packet 00:00: mouth [place] 00 daily. Medical Take with Branch lasix in the morning isosorbide 2020-0 Yes [id number] 15mg Take 0.5 [facility] mononitrate 4-22 tablets by it y of 30 mg 24 hr 00:00: mouth [place] tablet 00 daily. Medical Hold if Branch systolic blood pressure less than 120 Insulin 2020-0 Yes [id number] 10U inject 10 [facility] Glargine 4-22 Units ity of 100 unit/mL 00:00: under the [place] (3 mL) 00 skin at Medical injection bedtime. Branch temazepam 2020-0 Yes [id number] 15mg Take 1 Un mel 15 mg 4-22 capsule by ity of capsule 00:00: mouth at [place] 00 bedtime as Medical needed for Branch Insomnia. furosemide 2020-0 Yes [id number] 40mg Take 1 [facility] 40 mg 4-22 tablet by ity of tablet 00:00: mouth [place] 00 every Medical morning Branch and evening. Magnesium 2020-0 Yes [id number] 400mg Take 400 [facility] Oxide 420 4-22 mg by ity of mg Tab 00:00: mouth [place] 00 daily. Medical Branch potassium 2020-0 Yes [id number] 20meq Take 20 [facility] chloride 20 4-22 mEq by ity of mEq packet 00:00: mouth [place] 00 daily. Medical Take with Branch lasix in the morning isosorbide 2020-0 Yes [id number] 15mg Take 0.5 [facility] mononitrate 4-22 tablets by it y of 30 mg 24 hr 00:00: mouth [place] tablet 00 daily. Medical Hold if Branch systolic blood pressure less than 120 Insulin 2020-0 Yes [id number] 10U inject 10 [facility] Glargine 4-22 Units ity of 100 unit/mL 00:00: under the [place] (3 mL) 00 skin at Medical injection bedtime. Branch Magnesium 2020-0 Yes [id number] 400mg Take 400 [facility] Oxide 420 4-22 mg by ity of mg Tab 00:00: mouth [place] 00 daily. Medical Branch vitamin 2019-0 2020- No [id number] 1000ug Take 1 [facility] B-12 1,000 4-22 07-22 tablet by ity of mcg tablet 00:00: 04:59 mouth [place] 00 :00 daily for Medical 90 days. Branch vitamin 2019-0 2020- No [id number] 1000ug Take 1 [facility] B-12 1,000 4-22 07-22 tablet by ity of mcg tablet 00:00: 04:59 mouth [place] 00 :00 daily for Medical 90 days. Branch vitamin 2019-0 2020- No [id number] 1000ug Take 1 [facility] B-12 1,000 4-22 07-22 tablet by ity of mcg tablet 00:00: 04:59 mouth [place] 00 :00 daily for Medical 90 days. Branch vitamin 2019-0 2020- No [id number] 1000ug Take 1 [facility] B-12 1,000 4-22 07-22 tablet by ity of mcg tablet 00:00: 04:59 mouth [place] 00 :00 daily for Medical 90 days. Branch glipiZIDE 5 2019- 2020- No [id number] 2.5mg Take 0.5 [facility] mg tablet 03-07-23 tablets by ity of 00:00: 04:59 mouth 2 [place] 00 :00 (two) Medical times Branch daily before breakfast and dinner for 30 days. metoprolol 2019-0 2020- No [id number] 25mg Take 1 [facility] succinate 03-07-23 tablet by ity of XL 25 mg 24 00:00: 04:59 mouth 2 [place] hr tablet 00 :00 (two) Medical times Branch daily for 30 days. OLANZapine 2019-0 2020- No [id number] 2.5mg Take 1 [facility] 2.5 mg -06 04-23 tablet by ity of tablet 00:00: 04:59 mouth at [place] 00 :00 bedtime Medical for 30 Branch days. ranolazine 2019-0 2020- No [id number] 1000mg Take 2 [facility] 500 mg 12 - 05-23 tablets by ity of hr tablet 00:00: 04:59 mouth [place] 00 :00 every 12 Medical (twelve) Branch hours for 30 days. aspirin 81 2019-0 2020- No [id number] 81mg Take 1 [facility] mg chewable 4-22 05-23 tablet by it y of tablet 00:00: 04:59 mouth [place] 00 :00 daily with Medical breakfast Branch for 30 days. atorvastati 2019- 2020- No [id number] 40mg Take 1 [facility] n 40 mg 4-22 05-23 tablet by ity of tablet 00:00: 04:59 mouth at [place] 00 :00 bedtime Medical for 30 Branch days. glipiZIDE 5 2020- No [id number] 2.5mg Take 0.5 [facility] mg tablet 4- 05-23 tablets by ity of 00:00: 04:59 mouth 2 [place] 00 :00 (two) Medical times Branch daily before breakfast and dinner for 30 days. metoprolol 2019- 2020- No [id number] 25mg Take 1 [facility] succinate 4-22 05-23 tablet by ity of XL 25 mg 24 00:00: 04:59 mouth 2 [place] hr tablet 00 :00 (two) Medical times Branch daily for 30 days. OLANZapine 2019- 2020- No [id number] 2.5mg Take 1 [facility] 2.5 mg 4-22 05-23 tablet by ity of tablet 00:00: 04:59 mouth at [place] 00 :00 bedtime Medical for 30 Branch days. ranolazine 2019-0 2020- No [id number] 1000mg Take 2 [facility] 500 mg 12 4-22 05-23 tablets by ity of hr tablet 00:00: 04:59 mouth [place] 00 :00 every 12 Medical (twelve) Branch hours for 30 days. aspirin 81 2019-0 2020- No [id number] 81mg Take 1 [facility] mg chewable 4-22 05-23 tablet by it y of tablet 00:00: 04:59 mouth [place] 00 :00 daily with Medical breakfast Branch for 30 days. atorvastati 2019-0 2020- No [id number] 40mg Take 1 [facility] n 40 mg 4-22 05-23 tablet by ity of tablet 00:00: 04:59 mouth at [place] 00 :00 bedtime Medical for 30 Branch days. glipiZIDE 5 2019- 2020- No [id number] 2.5mg Take 0.5 [facility] mg tablet 4-22 05-23 tablets by ity of 00:00: 04:59 mouth 2 [place] 00 :00 (two) Medical times Branch daily before breakfast and dinner for 30 days. metoprolol 2020-0 2020- No [id number] 25mg Take 1 [facility] succinate 4-22 05-23 tablet by ity of XL 25 mg 24 00:00: 04:59 mouth 2 [place] hr tablet 00 :00 (two) Medical times Branch daily for 30 days. OLANZapine 2019- 2020- No [id number] 2.5mg Take 1 [facility] 2.5 mg 4-22 05-23 tablet by ity of tablet 00:00: 04:59 mouth at [place] 00 :00 bedtime Medical for 30 Branch days. ranolazine 2019- 2020- No [id number] 1000mg Take 2 [facility] 500 mg 12 4-22 05-23 tablets by ity of hr tablet 00:00: 04:59 mouth [place] 00 :00 every 12 Medical (twelve) Branch hours for 30 days. aspirin 81 2019- 2020- No [id number] 81mg Take 1 [facility] mg chewable 4-22 05-23 tablet by it y of tablet 00:00: 04:59 mouth [place] 00 :00 daily with Medical breakfast Branch for 30 days. atorvastati 2019-0 2020- No [id number] 40mg Take 1 [facility] n 40 mg 4-22 05-23 tablet by ity of tablet 00:00: 04:59 mouth at [place] 00 :00 bedtime Medical for 30 Branch days. glipiZIDE 5 2019- 2020- No [id number] 2.5mg Take 0.5 [facility] mg tablet - 05-23 tablets by ity of 00:00: 04:59 mouth 2 [place] 00 :00 (two) Medical times Branch daily before breakfast and dinner for 30 days. metoprolol 2019- 2020- No [id number] 25mg Take 1 [facility] succinate 4-22 05-23 tablet by ity of XL 25 mg 24 00:00: 04:59 mouth 2 [place] hr tablet 00 :00 (two) Medical times Branch daily for 30 days. ranolazine 2020-0 2020- No [id number] 1000mg Take 2 [facility] 500 mg 12 4-22 05-23 tablets by ity of hr tablet 00:00: 04:59 mouth [place] 00 :00 every 12 Medical (twelve) Branch hours for 30 days. atorvastati 2020-0 2020- No [id number] 40mg Take 1 [facility] n 40 mg 4-22 05-23 tablet by ity of tablet 00:00: 04:59 mouth at [place] 00 :00 bedtime Medical for 30 Branch days. furosemide 2019- 2020- No [id number] 40mg Take 1 [facility] 40 mg - 05-08 tablet by ity of tablet 00:00: 00:00 mouth [place] 00 :00 every Medical morning Branch and evening. aspirin 81 2020- No [id number] 81mg Take 1 [facility] mg chewable - 05-08 tablet by it y of tablet 00:00: 00:00 mouth [place] 00 :00 daily with Medical breakfast Branch for 30 days. isosorbide 2020- No [id number] 15mg Take 0.5 [facility] mononitrate -06 04-08 tablets by i ty of 30 mg 24 hr 00:00: 00:00 mouth [place] tablet 00 :00 daily. Medical Hold if Branch systolic blood pressure less than 120 Insulin 2019- 2020- No [id number] 10U inject 10 [facility] Glargine 03-07-08 Units ity of 100 unit/mL 00:00: 00:00 under the [place] (3 mL) 00 :00 skin at Medical injection bedtime. Branch glipiZIDE 5 2020- No [id number] 2.5mg Take 0.5 [facility] mg tablet 03-07-08 tablets by ity of 00:00: 00:00 mouth 2 [place] 00 :00 (two) Medical times Branch daily before breakfast and dinner for 30 days. metoprolol 2019- 2020- No [id number] 25mg Take 1 [facility] succinate - 05-08 tablet by ity of XL 25 mg 24 00:00: 00:00 mouth 2 [place] hr tablet 00 :00 (two) Medical times Branch daily for 30 days. ranolazine 2020- No [id number] 1000mg Take 2 [facility] 500 mg 12 - 05-08 tablets by ity of hr tablet 00:00: 00:00 mouth [place] 00 :00 every 12 Medical (twelve) Branch hours for 30 days. furosemide 2019- 2020- No [id number] 40mg Take 1 [facility] 40 mg - 05-08 tablet by ity of tablet 00:00: 00:00 mouth [place] 00 :00 every Medical morning Branch and evening. aspirin 81 2020- No [id number] 81mg Take 1 [facility] mg chewable - 05-08 tablet by it y of tablet 00:00: 00:00 mouth [place] 00 :00 daily with Medical breakfast Branch for 30 days. atorvastati 2019- No [id number] 40mg Take 1 [facility] n 40 mg - 05-08 tablet by ity of tablet 00:00: 00:00 mouth at [place] 00 :00 bedtime Medical for 30 Branch days. Magnesium 2019- No [id number] 400mg Take 400 [facility] Oxide 420 - 05-08 mg by ity of mg Tab 00:00: 00:00 mouth [place] 00 :00 daily. Medical Branch vitamin 2019-2019- No [id number] 1000ug Take 1 [facility] B-12 1,000 - 05-08 tablet by ity of mcg tablet 00:00: 00:00 mouth [place] 00 :00 daily for Medical 90 days. Branch isosorbide 2019- No [id number] 15mg Take 0.5 [facility] mononitrate 03-07-08 tablets by i ty of 30 mg 24 hr 00:00: 00:00 mouth [place] tablet 00 :00 daily. Medical Hold if Branch systolic blood pressure less than 120 OLANZapine 2019- No [id number] 2.5mg Take 1 [facility] 2.5 mg 03-07 05-07 tablet by ity of tablet 00:00: 00:00 mouth at [place] 00 :00 bedtime Medical for 30 Branch days. temazepam 2019- No [id number] 15mg Take 1 U nivers 15 mg - 05-07 capsule by ity of capsule 00:00: 00:00 mouth at [place] 00 :00 bedtime as Medical needed for Branch Insomnia. potassium 2019- No [id number] 20meq Take 20 [facility] chloride 20 - 05-07 mEq by ity o f mEq packet 00:00: 00:00 mouth [place] 00 :00 daily. Medical Take with Branch lasix in the morning OLANZapine 2019- No [id number] 2.5mg Take 1 [facility] 2.5 mg 4- 05-07 tablet by ity of tablet 00:00: 00:00 mouth at [place] 00 :00 bedtime Medical for 30 Branch days. temazepam 2019- No [id number] 15mg Take 1 U nivers 15 mg 4-22 05-07 capsule by ity of capsule 00:00: 00:00 mouth at [place] 00 :00 bedtime as Medical needed for [place] Insomnia. potassium 2020-0 2020- No [id number] 20meq Take 20 [facility] chloride 20 03-07-07 mEq by ity o f mEq packet 00:00: 00:00 mouth [place] 00 :00 daily. Medical Take with [place] lasix in the morning isosorbide 2020-0 2020- No 60mg 60 mg, Univ ers mononitrate 03-06- Oral, ity of (IMDUR) 24 14:00: 13:43 DAILY, [place] hr tablet 00 :56 First dose Medi birdie 60 mg on [facility] 03/06/20 at 0900, Until Discontinu ed, Routine OLANZapine 2020-0 Yes 2.5mg 2.5 mg, Uni vers (ZyPREXA) - Oral, QHS, ity of tablet 2.5 02:00: First dose [place] mg 00 on [facility] 03/05/20 at Branch 2100, Until Discontinu ed, Routine insulin 2020-0 Yes 10U 10 Units[facility] gl[facility] 03-06 Subcutaneo ity o f (LANTUS 02:00: us, QHS, [place] U-100) 00 First dose Medical injection on [facility] 10 Units 03/05/20 at 2100, Until Discontinu ed, Routine donepezil 2020-0 Yes 5mg 5 mg, Univers (ARICEPT) - Oral, QHS, ity of tablet 5 mg 02:00: First dose [place] 00 on [facility] 03/05/20 at Branch 2100, Until Discontinu ed, Routine atorvastati 2020-0 Yes 40mg 40 mg, Univ ers n (LIPITOR) - Oral, QHS, it y of tablet 40 02:00: First dose [place] mg 00 on [facility] 03/05/20 at Branch 2100, Until Discontinu ed, Routine isosorbide 2020-0 2020- No 30mg 30 mg, Univ ers mononitrate 03-05 Oral, ity of (IMDUR) 24 15:30: 15:21 ONCE, 1 [place] hr tablet 00 :00 dose, [facility] Medic al 30 mg 03/05/20 at Branch 1030, Routine spironolact 2020-0 Yes 12.5mg 12.5 mg, Univers one 4-20 Oral, ity of (ALDACTONE) 14:00: DAILY, [place] tablet 12.5 00 First dose Me dical mg on [facility] 03/05/20 at 0900, Until Discontinu ed, Routine memantine 2020-0 Yes 10mg 10 mg, Univer s (NAMENDA) 4-20 Oral, ity of tablet 10 14:00: DAILY, [place] mg 00 First dose Medical on [facility] 03/05/20 at 0900, Until Discontinu ed, Routine
seafood service team member approving Restricted medication : MEGADC lisinopril 2020-0 2020- No 5mg 5 mg, Unive rs (PRINIVIL,Z -05 03-21 Oral, ity of ESTRIL) 14:00: 13:44 DAILY, [place] tablet 5 mg 00 :01 First dose Me dical on [facility] 03/05/20 at 0900, Until Discontinu ed, Routine isosorbide 2020-0 2020- No 30mg 30 mg, Univ ers mononitrate -05 03-20 Oral, ity of (IMDUR) 24 14:00: 14:20 DAILY, [place] hr tablet 00 :04 First dose Medi birdie 30 mg on [facility] 03/05/20 at 0900, Until Discontinu ed, Routine ranolazine 2020-0 Yes 500mg 500 mg, Uni vers (RANEXA) 12 4-20 Oral, ity of hr tablet 13:00: Q12H, [place] 500 mg 00 First dose Medical on [facility] 03/05/20 at 0800, Until Discontinu ed, [...] as 00 :44 First dose Medical on [place] Branch 03/05/20 at 0730, Until Discontinu ed, [...] IV ity of (D50W) 03:02: Push, PRN, [place] injection 42 Starting Medica l 25 mL [facility] 03/04/20 at 2202, Until Discontinu ed, ADAMA, Blood Glucose < or = 70 mg/dL and patient is unable to swallow or has mental status changes. furosemide 2020-0 Yes 40mg 40 mg, Unive rs (LASIX) 4-20 Oral, ity of tablet 40 03:00: QAM+PM, [place] mg 00 First dose Medical on [place] Branch 03/04/20 at 2200, Until Discontinu ed, Routine cyanocobala 2020-0 Yes 1000ug 1,000 mcg, Univers min 4-20 Subcutaneo ity of (VITAMIN 03:00: us, Q24H, [place] B12) 00 First dose Medical injection on [facility] 1,000 mcg 03/04/20 at 2200, Until Discontinu ed, Routine heparin 2020-0 Yes 5000U 5,000 Univers (porcine) 4-20 Units, ity of injection 03:00: Subcutaneo [place] 5,000 Units 00 us, Q8H, Medi birdie First dose Branch on [place] 03/04/20 at 2200, Until Discontinu ed, Routine ondansetron 2019-0 Yes 4mg 4 mg, Slow Univers (ZOFRAN 4-20 IV Push, ity of (PF)) 02:34: Q6HPRN, [place] injection 4 40 Starting Medi birdie mg [facility] 03/04/20 at 2134, Until Discontinu ed, Routine, Nausea and Vomiting (N/V) traMADol 2019-0 2020- No 50mg 50 mg, Univer s (ULTRAM) 4-20 04-22 Oral, ity of tablet 50 02:34: 02:33 Q8HPRN, [place] mg 23 :23 Starting Medical [facility] 03/04/20 at 2134, Until 03/06/20 at 2133, Routine, Pain (scale 4-6) acetaminoph 2019-0 Yes 650mg 650 mg, Un mel en 4-20 Oral, ity of (TYLENOL) 02:34: Q6HPRN, [place] tablet 650 20 Starting Medic al mg [facility] 03/04/20 at 2134, Until Discontinu ed, Routine, Pain (scale 1-3) lisinopril 2020-0 Yes [id number] 5mg Take 1 [facility] 5 mg tablet 4-18 tablet by ity of 00:00: mouth [place] 00 daily. [facility] Branch isosorbide 2020-0 Yes [id number] 30mg Take 1 [facility] mononitrate 4-18 tablet by ity of 30 mg 24 hr 00:00: mouth [place] tablet 00 daily. [facility] lisinopril 2020-0 Yes [id number] 5mg Take 1 [facility] 5 mg tablet 4-18 tablet by ity of 00:00: mouth [place] 00 daily. [facility] Branch isosorbide 2020-0 Yes [id number] 30mg Take 1 [facility] mononitrate 4-18 tablet by ity of 30 mg 24 hr 00:00: mouth [place] tablet 00 daily. [facility] lisinopril 2020-0 2020- No [id number] 5mg Take 1 [facility] 5 mg tablet 4-18 04-22 tablet by it y of 00:00: 00:00 mouth [place] 00 :00 daily. [facility] isosorbide 2020-0 2020- No [id number] 30mg Take 1 [facility] mononitrate 4-18 04-22 [...] N ORAL 4-17 mouth. ity of 17:34: [place] [address] Medical Branch thiamine 2020-0 Yes 100mg Take 100 Univ ers (VITAMIN 4-17 mg by ity of B-1) 100 mg 17:34: mouth [place] tablet 27 daily. Medical Branch aspirin 81 2019-0 Yes 81mg Take 81 mg U nivers mg chewable 4-17 by mouth ity of tablet 17:34: daily. [place] [address] Medical Branch atorvastati 2019-0 Yes 40mg Take [...] N ORAL 4-17 mouth. ity of 17:34: [place] [address] Medical Branch thiamine 2020-0 Yes 100mg Take 100 Univ ers (VITAMIN 4-17 mg by ity of B-1) 100 mg 17:34: mouth [place] tablet 27 daily. Medical Branch aspirin 81 2020-0 Yes 81mg Take 81 mg U nivers mg chewable 4-17 by mouth ity of tablet 17:34: daily. [place] [address] Medical Branch atorvastati 2020-0 Yes 40mg Take 40 mg Univers n 40 mg 4-17 by mouth ity of tablet 17:34: at [place] [address] bedtime. Medical Branch NaCl 0.9% 2020-0 Yes [...] Until Discontinu ed, Routine furosemide 2020-0 Yes [id number] 40mg Take 1 [facility] 40 mg 4-17 tablet by ity of tablet 00:00: mouth [place] 00 every Medical morning Branch and evening. potassium 2020-0 Yes [id number] 20meq Take 20 [facility] chloride 20 4-17 mEq by ity of mEq packet 00:00: mouth [place] 00 daily. Medical Branch vitamin 2020-0 Yes [id number] 1000ug Take 1 U nivers B-12 1,000 4-17 tablet by ity of mcg tablet 00:00: mouth [place] 00 daily. Medical Branch furosemide 2020-0 Yes [id number] 40mg Take 1 [facility] 40 mg 4-17 tablet by ity of tablet 00:00: mouth [place] 00 every Medical morning Branch and evening. potassium 2020-0 Yes [id number] 20meq Take 20 [facility] chloride 20 4-17 mEq by ity of mEq packet 00:00: mouth [place] 00 daily. Medical Branch vitamin 2020-0 Yes [id number] 1000ug Take 1 U nivers B-12 1,000 4-17 tablet by ity of mcg tablet 00:00: mouth [place] 00 daily. Medical Branch furosemide 2020-0 2020- No [id number] 40mg Take 1 [facility] 40 mg 4-17 04-22 tablet by ity of tablet 00:00: 00:00 mouth [place] 00 :00 every Medical morning Branch and evening. potassium 2020-0 2020- No [id number] 20meq Take 20 [facility] chloride 20 4-17 04-22 mEq by ity o f mEq packet 00:00: 00:00 mouth [place] 00 :00 daily. Medical Branch vitamin 2020-0 2020- No [id number] 1000ug Take 1 [facility] B-12 1,000 4-17 04-22 tablet by ity of mcg tablet 00:00: 00:00 mouth [place] 00 :00 daily. Medical Branch cyanocobala 2020-0 Yes 1000ug 1,000 mcg, [facility] min 4-16 Subcutaneo ity of (VITAMIN 20:45: us, Q24H, [place] B12) 00 First dose Medical injection on [facility] 1,000 mcg 03/01/20 at 1545, Until Discontinu ed, Routine isosorbide 2020-0 Yes 30mg 30 mg, Unive rs mononitrate 4-16 Oral, ity of (IMDUR) 24 14:00: DAILY, [place] hr tablet 00 First dose Medi birdie 30 mg on [facility] 03/01/20 at 0900, Until Discontinu ed, Routine memantine 2020-0 Yes 10mg 10 mg, Univer s (NAMENDA) 4-16 Oral, ity of tablet 10 14:00: DAILY, [place] mg 00 First dose Medical on [facility] 03/01/20 at 0900, Until Discontinu ed, Routine
seafood service team member approving Restricted medication : MEGADC lisinopril 2020-0 Yes 5mg 5 mg, Univer s (PRINIVIL,Z 03-01 Oral, ity of ESTRIL) 14:00: DAILY, [place] tablet 5 mg 00 First dose Me dical on [facility] 03/01/20 at 0900, Until Discontinu ed, Routine enoxaparin 2020-0 Yes 30mg 30 mg, Unive rs (LOVENOX) 03-01 Subcutaneo ity of injection 14:00: [place], DAILY, [place] 30 mg 00 First dose Medical on [facility] 03/01/20 at 0900, Until Discontinu ed, Routine KCL 2020-0 2020- No 20meq 20 mEq, Univers (KLOR-CON 03-01 Oral, ity of M20) tablet 14:00: 13:26 DAILY, [place] 20 mEq 00 :35 First dose Medical on [facility] 03/01/20 at 0900, Until Discontinu ed, Routine KCL 2020-0 Yes 40meq 40 mEq, Univers (KLOR-CON 03-01 Oral, BID, ity of M20) tablet 13:30: First dose [place] 40 mEq 00 on [facility] 03/01/20 at Branch 0830, Until Discontinu ed, Routine magnesium 2020-0 2020- No 2g 2 g, IV Univ ers sulfate in 03-01 Infusion, ity of water 2 03:30: 03:30 ONCE, 1 [place] gram/50 mL 00 :00 dose, Thu [facility] birdie (4 %) 2 g 02/29/20 at [facility] piggyback [id number] metoprolol 2020-0 2020- No 5mg 5 mg, Slow Univers (LOPRESSOR) 03-01 IV Push, ity of injection 5 03:30: 03:37 ONCE, 1 [place] mg 00 :00 dose, [facility] 02/29/20 at Branch 2230, ADAMA glipiZIDE 2020-0 Yes 5mg 5 mg, Univers (GLUCOTROL) 03-01 Oral, ity of tablet 5 mg 02:45: BIDAC, [place] 00 First dose Medical on [facility] 02/29/20 at 2145, Until Discontinu ed, [...] [place] 40 mEq 00 :00 dose, [facility] Medical 02/29/20 at Branch 2000, Routine acetaminoph 2019-0 Yes 650mg 650 mg, Un mel en 15 Oral, ity of (TYLENOL) 23:57: Q6HPRN, [place] tablet 650 25 Starting Medic al mg [facility] 02/29/20 at 1857, Until Discontinu ed, [...] 02-14 by mouth ity of 00:00: daily. [address] donepezil 5 2019-0 2020- No 5mg Take 5 mg Univers mg tablet 02-1408 by mouth ity o f 00:00: 00:00 daily. [place] 00 :00 [facility] nitroglycer 2019-0 2020- No DISSOLVE U [...] by mouth ity of tablet 23:00: daily. [place] [address] Medical Branch atorvastati 2020-0 Yes 40mg Take 40 mg Univers n 40 mg 3-03 by mouth ity of tablet 23:00: at [place] [address] bedtime. Medical Branch NaCl 0.9% 2020-0 Yes [...] ity of Vitamin D3, 23:00: [place] 2,000 unit 52 Medical capsule Branch metoprolol 2020-0 Yes 12.5mg Take 12.5 Univers tartrate 3-03 mg by ity of 12.5 mg 23:00: mouth 2 [place] 52 (two) Medical times Branch daily. MULTIVITAMI 2020-0 Yes Take by Un mel N ORAL 3-03 mouth. ity of 23:00: [place] [address] Medical Branch thiamine 2020-0 Yes 100mg Take 100 Univ ers (VITAMIN 3-03 mg by ity of B-1) 100 mg 23:00: mouth [place] tablet 52 daily. Medical Branch aspirin 81 2020-0 Yes 81mg Take 81 mg U nivers mg chewable 3-03 by mouth ity of tablet 23:00: daily. [place] [address] Medical Branch atorvastati 2020-0 Yes 40mg Take 40 mg Univers n 40 mg 3-03 by mouth ity of tablet 23:00: at [place] [address] bedtime. Medical Branch NaCl 0.9% 2020-0 Yes [...] ity of Vitamin D3, 23:00: [place] 2,000 [place] [address] Medical capsule Branch metoprolol 2020-0 Yes 12.5mg Take 12.5 Univers tartrate 3-03 mg by ity of 12.5 mg 23:00: mouth 2 [place] 52 (two) Medical times Branch daily. MULTIVITAMI 2020-0 Yes Take by Un mel N ORAL 3-03 mouth. ity of 23:00: [place] [address] Medical Branch thiamine 2020-0 Yes 100mg Take 100 Univ ers (VITAMIN 3-03 mg by ity of B-1) 100 mg 23:00: mouth [place] tablet 52 daily. Medical Branch aspirin 81 2020-0 Yes 81mg Take 81 mg U nivers mg chewable 3-03 by mouth ity of tablet 23:00: daily. [place] [address] Medical Branch atorvastati 2020-0 Yes 40mg Take 40 mg Univers n 40 mg 3-03 by mouth ity of tablet 23:00: at [place] [address] bedtime. Medical Branch NaCl 0.9% 2020-0 Yes [...] ity of Vitamin D3, 23:00: [place] 2,000 [place] [address] Medical capsule Branch metoprolol 2020-0 Yes 12.5mg Take 12.5 Univers tartrate 3-03 mg by ity of 12.5 mg 23:00: mouth 2 [place] 52 (two) Medical times Branch daily. MULTIVITAMI 2020-0 Yes Take by Un mel N ORAL 3-03 mouth. ity of 23:00: [place] [address] Medical Branch thiamine 2020-0 Yes 100mg Take 100 Univ ers (VITAMIN 3-03 mg by ity of B-1) 100 mg 23:00: mouth [facility] 52 daily. Medical Branch aspirin 81 2020-0 Yes 81mg Take 81 mg U nivers mg chewable 3-03 by mouth ity of tablet 23:00: daily. [place] [address] Medical Branch atorvastati 2020-0 Yes 40mg Take 40 mg Univers n 40 mg 3-03 by mouth ity of tablet 23:00: at [place] [address] bedtime. Medical Branch NaCl 0.9% 2019-0 Yes [...] First dose [place] mg 00 on Mon [facility] 01/16/20 at Branch 2100, Until Discontinu ed, Routine ranolazine 2020-0 2020- No [id number] 500mg Take 1 [facility] 500 mg 12 - 04-03 tablet by ity of hr tablet 00:00: 04:59 mouth [place] 00 :00 every 12 Medical (twelve) Branch hours for 30 days. ranolazine 2020-0 2020- No [id number] 500mg Take 1 [facility] 500 mg 12 - 04-03 tablet by ity of hr tablet 00:00: 04:59 mouth [place] 00 :00 every 12 Medical (twelve) Branch hours for 30 days. ranolazine 2020-0 2020- No [id number] 500mg Take 1 [facility] 500 mg 12 01-16- tablet by ity of hr tablet 00:00: 04:59 mouth [place] 00 :00 every 12 Medical (twelve) Branch hours for 30 days. ranolazine 2020-0 2020- No [id number] 500mg Take 1 [facility] 500 mg 12 01-16- tablet by ity of hr tablet 00:00: 04:59 mouth [place] 00 :00 every 12 Medical (twelve) Branch hours for 30 days. ranolazine 2020-0 Yes 500mg 500 mg, Uni vers (RANEXA) 12 01-15 Oral, ity of hr tablet 22:30: Q12H, [place] 500 mg 00 First dose Medical on [facility] 01/16/20 at 1630, Until Discontinu ed, Routine insulin 2020-0 Yes 30U 30 Units, Unive rs glargine 01-15 Subcutaneo ity o f (LANTUS 15:00: [place], DAILY, [place] U-100) 00 First dose Medical injection on [facility] 30 Units 01/16/20 at 0900, Until Discontinu ed furosemide 2020-0 Yes 40mg 40 mg, Unive rs (LASIX) 01-15 Oral, ity of tablet 40 15:00: DAILY, [place] mg 00 First dose Medical on [facility] 01/16/20 at 0900, Until Discontinu ed, Routine aspirin 2020-0 Yes 81mg 81 mg, Univers chewable 01-15 Oral, ity of tablet 81 15:00: DAILY, [place] mg 00 First dose Medical on [facility] 01/16/20 at 0900, Until Discontinu ed, Routine metoprolol 2020-0 Yes 12.5mg 12.5 mg, U nivers tartrate - Oral, BID, ity o f (LOPRESSOR) 14:00: First dose [place] tablet 12.5 00 on [facility] Medica l mg 01/16/20 at Branch 0800, Until Discontinu ed, Routine Sliding 2020-0 Yes Subcutaneo Univ ers Scale 3-02 us, Q6H, ity of Insulin-Reg 12:00: First dose [place] ular + Fsbg 00 on [facility] Medica l Testing 01/16/20 at [...] 07:53 Q6HPRN, [place] 55 :55 Starting Medical 01/16/20 Branch at [...] 3-02 Oral, ity of (TYLENOL) 07:54: Q6HPRN, [place] tablet 650 44 Starting Medic al [...] 01/15/20 at 2345, ADAMA furosemide 2018-11 Yes [id number] 40mg Take 1 Univers 40 mg 0-26 tablet by ity of tablet 00:00: mouth [place] 00 daily. Medical Branch furosemide 2018-11 Yes [id number] 40mg Take 1 Univers 40 mg 0-26 tablet by ity of tablet 00:00: mouth [place] 00 daily. Medical Branch furosemide 2018-11 Yes [id number] 40mg Take 1 Univers 40 mg 0-26 tablet by ity of tablet 00:00: mouth [place] 00 daily. Medical Branch furosemide 2018-11 Yes [id number] 40mg Take 1 Univers 40 mg 0-26 tablet by ity of tablet 00:00: mouth [place] 00 daily. Medical Branch furosemide 2018-11 2020- No [id number] 40mg Take 1 Univers 40 mg 0-26 04-17 tablet by ity of tablet 00:00: 00:00 mouth [place] 00 :00 daily. Medical Branch magnesium 2018- Yes [id number] 400mg Take 400 Univers oxide 420 0-23 mg by ity of mg Tab 00:00: mouth [place] 00 daily. Medical Branch magnesium 2019-1 Yes [id number] 400mg Take 400 Univers oxide 420 0-23 mg by ity of mg Tab 00:00: mouth [place] 00 daily. Medical Branch magnesium 2019-1 Yes [id number] 400mg Take 400 Univers oxide 420 0-23 mg by ity of mg Tab 00:00: mouth [place] 00 daily. Medical Branch magnesium 2019- Yes [id number] 400mg Take 400 Univers oxide 420 0-23 mg by ity of mg Tab 00:00: mouth [place] 00 daily. [facility] magnesium 2019-1 Yes [id number] 400mg Take 400 Univers oxide 420 0-23 mg by ity of mg Tab 00:00: mouth [place] 00 daily. [facility] magnesium 2019- Yes [id number] 400mg Take 400 Univers oxide 420 0-23 mg by ity of mg Tab 00:00: mouth [place] 00 daily. [facility] magnesium 2019- 2020- No [id number] 400mg Take 400 Univers oxide 420 0-23 04-22 mg by ity of mg Tab 00:00: 00:00 mouth [place] 00 :00 daily. [facility] Insulin 2019-0 Yes [id number] 30U inject 30 Univers Glargine 9-11 Units ity of 100 unit/mL 00:00: under the [place] (3 mL) 00 skin every Medical injection morning. Branch Insulin 2019-0 Yes [id number] 30U inject 30 Univers Glargine 9-11 Units ity of 100 unit/mL 00:00: under the [place] (3 mL) 00 skin every Medical injection morning. Branch Insulin 2019-0 Yes [id number] 30U inject 30 Univers Glargine 9-11 Units ity of 100 unit/mL 00:00: under the [place] (3 mL) 00 skin every Medical injection morning. Branch Insulin 2019-0 Yes [id number] 30U inject 30 Univers Glargine 9-11 Units ity of 100 unit/mL 00:00: under the [place] (3 mL) 00 skin every Medical injection morning. Branch Insulin 2019-0 Yes [id number] 30U inject 30 Univers Glargine 9-11 Units ity of 100 unit/mL 00:00: under the [place] (3 mL) 00 skin every Medical injection morning. Branch Insulin Yes [id number] 30U inject 30 Univers Glargine 9-11 Units ity of 100 unit/mL 00:00: under the [place] (3 mL) 00 skin every Medical injection morning. Branch Insulin Yes [id number] 30U inject 30 Univers Glargine 9-11 Units ity of 100 unit/mL 00:00: under the [place] (3 mL) 00 skin every Medical injection morning. Branch Insulin 2020- No [id number] 30U inject 30 Univers Glargine 9-11 04-22 [...] mg under ity of 15:26: the skin. [place] [address] Medical Branch Cholecalcif Yes Take by Un mel ann, 5-10 mouth. ity of Vitamin D3, 15:26: [place] 2,000 unit 43 Medical capsule Branch metoprolol Yes 12.5mg Take 12.5 Univers tartrate 5-10 mg by ity of 12.5 mg 15:26: mouth 2 [place] 43 (two) Medical times Branch daily. MULTIVITAMI Yes Take by Un mel N ORAL 5-10 mouth. ity of 15:26: [place] [address] Medical Branch thiamine Yes 100mg Take 100 Univ ers (VITAMIN 5-10 mg by ity of B-1) 100 mg 15:26: mouth [place] tablet 43 daily. Medical Branch aspirin 81 Yes 81mg Take 81 mg U nivers mg chewable 5-10 by mouth ity of tablet 15:26: daily. [place] [address] Medical Branch atorvastati Yes 40mg Take 40 mg Univers n 40 mg 5-10 by mouth ity of tablet 15:26: at [place] [address] bedtime. Medical Branch furosemide Yes 40mg Take 40 mg U nivers 40 mg 5-10 by mouth ity of tablet 15:26: daily. [place] [address] Medical Branch NaCl 0.9% 2019-0 Yes 10mL [...] mg under ity of 15:26: the skin. [place] [address] Medical Branch Cholecalcif 0 Yes Take by Un mel ann, 5-10 mouth. ity of Vitamin D3, 15:26: [place] 2,000 unit Medical capsule Branch metoprolol 0 Yes 12.5mg Take 12.5 Univers tartrate 5-10 mg by ity of 12.5 mg 15:26: mouth 2 [place] [address] (two) Medical times Branch daily. MULTIVITAMI 0 Yes Take by Un mel N ORAL 5-10 mouth. ity of 15:26: [place] [address] Medical Branch thiamine 0 Yes 100mg Take 100 Univ ers (VITAMIN 5-10 mg by ity of B-1) 100 mg 15:26: mouth [place] tablet 43 daily. Medical Branch aspirin 81 0 Yes 81mg Take 81 mg U nivers mg chewable 5-10 by mouth ity of tablet 15:26: daily. [place] [address] Medical Branch atorvastati 0 Yes 40mg Take 40 mg Univers n 40 mg 5-10 by mouth ity of tablet 15:26: at [place] 43 bedtime. Medical Branch furosemide 0 Yes 40mg Take 40 mg U nivers 40 mg 5-10 by mouth ity of tablet 15:26: daily. [place] [address] Medical Branch NaCl 0.9% 2019-0 Yes 10mL Inject 10 Uni vers (NS) Soln 5-10 mL ity of 10 mL with 15:26: intravenou [place] sodium 43 sly once Medical chloride now. Branch 2.5 mEq/mL SolP 17.125 mEq insulin 2019-0 Yes [id number] 4U inject 4 U nivers lispro, 5-10 Units ity of human, 100 00:00: under the [place] unit/mL 00 skin 3 Medical injection (three) Branch times daily before meals. insulin 2019-0 Yes [id number] 4U inject 4 U nivers lispro, 5-10 Units ity of human, 100 00:00: under the [place] unit/mL 00 skin 3 Medical injection (three) Branch times daily before meals. insulin 2018-0 Yes [id number] 4U inject 4 U nivers lispro, 5-10 Units ity of human, 100 00:00: under the [place] unit/mL 00 skin 3 Medical injection (three) Branch times daily before meals. insulin 2018-0 Yes [id number] 4U inject 4 U nivers lispro, 5-10 Units ity of human, 100 00:00: under the [place] unit/mL 00 skin 3 Medical injection (three) Branch times daily before meals. insulin 2018-0 Yes [id number] 4U inject 4 U nivers lispro, 5-10 Units ity of human, 100 00:00: under the [place] unit/mL 00 skin 3 Medical injection (three) Branch times daily before meals. insulin 2018-0 Yes [id number] 4U inject 4 U nivers lispro, 5-10 Units ity of human, 100 00:00: under the [place] unit/mL 00 skin 3 Medical injection (three) Branch times daily before meals. Insulin 2018-0 Yes [id number] 18U inject Uni vers Glargine 5-10 18-24 ity of 100 unit/mL 00:00: Units [place] (3 mL) 00 under the Medical injection skin every Bran ch morning. insulin 2018-0 Yes [id number] 4U inject 4 U nivers lispro, 5-10 Units ity of human, 100 00:00: under the [place] unit/mL 00 skin 3 Medical injection (three) Branch times daily before meals. insulin 2019-0 Yes [id number] 4U inject 4 U nivers lispro, 5-10 Units ity of human, 100 00:00: under the [place] unit/mL 00 skin 3 Medical injection (three) Branch times daily before meals. insulin 2018-0 Yes [id number] 4U inject 4 U nivers lispro, 5-10 Units ity of human, 100 00:00: under the [place] unit/mL 00 skin 3 Medical injection (three) Branch times daily before meals. insulin 2018- Yes [id number] 4U inject 4 U nivers lispro, 5-10 Units ity of human, 100 00:00: under the [place] unit/mL 00 skin 3 Medical injection (three) Branch times daily before meals. insulin Yes [id number] 4U inject 4 U nivers lispro, 5-10 Units ity of human, 100 00:00: under the [place] unit/mL 00 skin 3 Medical injection (three) Branch times daily before meals. insulin 2020- No [id number] 4U inject 4 Univers lispro, 5-10 05-07 Units ity of human, 100 00:00: 00:00 under the [place] unit/mL 00 :00 skin 3 Medical injection (three) Branch times daily before meals. insulin 2019- No [id number] 4U inject 4 Univers lispro, 5-10 05-07 Units ity of human, 100 00:00: 00:00 under the [place] unit/mL 00 :00 skin 3 Medical injection (three) Branch times daily before meals. Insulin 2019- No [id number] 18U inject Un mel Glargine 03-25 18-24 [...] mouth [place] 29 daily. Medical Branch folic 2018- Yes Take by Univers acid/vit B 3-08 mouth. ity of complex and 16:39: [place] C (B 29 Medical COMPLEX-VIT Branch RAZA C-FOLIC ACID ORAL) potassium 2018- Yes 20meq Take 20 Univ ers chloride 20 3-08 mEq by ity of mEq packet 16:39: mouth [place] 29 daily. Medical Branch Potassium Potassium Yes Anneliese 1 capsule Common Chloride Chloride Mill[place] with food [facility] Tylenol # 3 Tylenol # 3 Yes Anneliese one tab Common Millender [facility] Vitamin D-3 Vitamin D-3 Yes Anneliese 2 capsule Common Millender [facility] Humalog Humalog Yes Anneliese as Common Millender directed [facility] Aspir-Low Aspir-Low Yes Anneliese 1 tablet Common Millender [facility] Namzaric Namzaric Yes Anneliese 1 Common Millender [facility] Zyprexa Zyprexa Yes Anneliese 1 tablet Comm on Millender [facility] Vitamin B-1 Vitamin B-1 Yes Ann[place] 1 tablet Common Millender [facility] Multivitami Multivitami Yes Anneliese as Common n n Millender directed [facility] Lantus Lantus Yes Anneliese as Common Millender directed [facility] Lasix Lasix Yes Anneliese 1 tablet Common Millender [facility] Isosorbide Isosorbide Yes Anneliese 1 tablet Common Mononitrate Mononitrate Mill[place] in the [facility] morning [facility] Lyrica Lyrica Yes Anneliese 1 capsule Commo n Millender [facility] Immunizations Ordered Filled Immunization Date Status Comments [facility] e Immunization Name Name SARS-COV-2 COVID-19 2021-09-16 Completed Unive rsity of MODERNA VACCINE 00:00:00 [facility] SARS-COV-2 COVID-19 2021-09-16 Completed Unive rsity of MODERNA VACCINE 00:00:00 [facility] SARS-COV-2 COVID-19 2021-09-16 Completed Unive rsity of MODERNA VACCINE 00:00:00 [facility] SARS-COV-2 COVID-19 2021-09-16 Completed Unive rsity of MODERNA VACCINE 00:00:00 [facility] SARS-COV-2 COVID-19 2021-08-17 Completed Unive rsity of MODERNA VACCINE 00:00:00 [facility] Influenza High Dose 2021-08-17 Completed Unive rsity of 00:00:00 [facility] SARS-COV-2 COVID-19 2021-08-17 Completed Unive rsity of MODERNA VACCINE 00:00:00 [facility] Influenza High Dose 2021-08-17 Completed Unive rsity of 00:00:00 [facility] SARS-COV-2 COVID-19 2021-08-17 Completed Unive rsity of MODERNA VACCINE 00:00:00 [facility] Influenza High Dose 2021-08-17 Completed Unive rsity of 00:00:00 [facility] SARS-COV-2 COVID-19 2021-08-17 Completed Unive rsity of MODERNA VACCINE 00:00:00 [facility] Influenza High Dose 2021-08-17 Completed Unive rsity of 00:00:00 [facility] Zoster(Zostavax)( 2020-09-14 Completed Unive rsity of ingles) 00:00:00 [facility] Zoster(Zostavax)( 2020-09-14 Completed Unive rsity of ingles) 00:00:00 [facility] Zoster(Zostavax)( 2020-09-14 Completed Unive rsity of ingles) 00:00:00 [facility] Zoster(Zostavax)( 2020-09-14 Completed Unive rsity of ingles) 00:00:00 [facility] Influenza High Dose 2020-07-13 Completed Unive rsity of 00:00:00 [facility] Influenza High Dose 2020-07-13 Completed Unive rsity of 00:00:00 [facility] Influenza High Dose 2020-07-13 Completed Unive rsity of 00:00:00 [facility] Influenza High Dose 2020-07-13 Completed Unive rsity of 00:00:00 [facility] Influenza High Dose 2019-09-15 Completed Unive rsity of 00:00:00 [facility] Influenza High Dose 2019-09-15 Completed Unive rsity of 00:00:00 [facility] Influenza High Dose 2019-09-15 Completed Unive rsity of 00:00:00 [facility] Influenza High Dose 2019-09-15 Completed Unive rsity of 00:00:00 [facility] Influenza Virus 2018-09-09 Completed Universit y of Vaccine 00:00:00 [facility] Influenza Virus 2018-09-09 Completed Universit y of Vaccine 00:00:00 [facility] Influenza Virus 2018-09-09 Completed Universit y of Vaccine 00:00:00 [facility] Influenza Virus 2018-09-09 Completed Universit y of Vaccine 00:00:00 [facility] Influenza Virus 2018-09-09 Completed Universit y of Vaccine 00:00:00 [facility] Influenza Virus 2018-09-09 Completed Universit y of Vaccine 00:00:00 [facility] Influenza Virus 2018-09-09 Completed Universit y of Vaccine 00:00:00 [facility] Influenza Virus 2018-09-09 Completed Universit y of Vaccine 00:00:00 [facility] Influenza Virus 2018-09-09 Completed Universit y of Vaccine 00:00:00 [facility] Influenza Virus 2018-09-09 Completed Universit y of Vaccine 00:00:00 [facility] Influenza Virus 2018-09-09 Completed Universit y of Vaccine 00:00:00 [facility] Influenza Virus 2018-09-09 Completed Universit y of Vaccine 00:00:00 [facility] Influenza Virus 2018-09-09 Completed Universit y of Vaccine 00:00:00 [facility] Influenza Virus 2018-09-09 Completed Universit y of Vaccine 00:00:00 [facility] Influenza Virus 2018-09-09 Completed Universit y of Vaccine 00:00:00 [facility] Influenza Virus 2018-09-09 Completed Universit y of Vaccine 00:00:00 [facility] Influenza Virus 2018-09-09 Completed Universit y of Vaccine 00:00:00 [facility] Influenza Virus 2018-09-09 Completed Universit y of Vaccine 00:00:00 [facility] Influenza Virus 2018-09-09 Completed Universit y of Vaccine 00:00:00 [facility] Influenza Virus 2018-09-09 Completed Universit y of Vaccine 00:00:00 [facility] Influenza Virus 2018-09-09 Completed Universit y of Vaccine 00:00:00 [facility] Influenza Virus 2018-09-09 Completed Universit y of Vaccine 00:00:00 [facility] Pneumococcal 2016-11-02 Completed University o f Polysaccharide, 00:00:00 [place] Med ical PPSV23 (PNEUMOVAX) [place] Pneumococcal 2016-11-02 Completed University o f Polysaccharide, 00:00:00 [place] Med ical PPSV23 (PNEUMOVAX) Branch Pneumococcal 2016-11-02 [...] ical PPSV23 (PNEUMOVAX) Branch Pneumococcal 2016-11-02 Completed [place] o f Polysaccharide, 00:00:00 [place] Med ical PPSV23 (PNEUMOVAX) Branch Pneumococcal 2016-11-02 Completed [place] o f Polysaccharide, 00:00:00 [place] Med ical PPSV23 (PNEUMOVAX) Branch Pneumococcal 2016-11-02 Completed [place] o f Polysaccharide, 00:00:00 [place] Med ical PPSV23 (PNEUMOVAX) Branch Vital Signs Vital Name Observation Time Observation Value Comments Source Systolic blood 2022-03-01 16:36:00 143 mm[Hg] Univer sity of pressure [facility] Diastolic blood 2022-03-01 16:36:00 80 mm[Hg] Unive rsity of [facility] Heart rate 2022-03-01 16:36:00 98 /min [facility] Respiratory rate 2022-03-01 16:36:00 16 /min [facility] O[facility] saturation in 2022-03-01 16:36:00 97 /min University of Arterial blood by [place] Strap [facility] Pulse oximetry Branch Body temperature 2022-03-01 11:42:00 36.94 [facility] Body height 2022-03-01 11:42:00 170.2 cm [facility] Body weight 2022-03-01 11:42:00 77.111 kg [facility] BMI 2022-03-01 11:42:00 26.63 kg/m2 [facility] Systolic blood 2021-11-02 17:17:00 109 mm[Hg] Univer sity of [facility] Diastolic blood 2021-11-02 17:17:00 67 mm[Hg] Unive rsity of [facility] Heart rate 2021-11-02 17:17:00 84 /min [facility] Body temperature 2021-11-02 17:17:00 36.44 Priyanka [facility] ersity [facility] Respiratory rate 2021-11-02 17:17:00 18 /min [facility] O[facility] saturation in 2021-11-02 17:17:00 95 /min University Arterial blood by [place] Strap [facility] Pulse oximetry Branch Body weight 2021-11-02 09:17:00 79.969 kg Universi ty of [place] [facility] BMI 2021-11-02 09:17:00 27.61 kg/m2 Universi ty of [place] [facility] Body height 2021-10-31 05:46:00 170.2 cm Universi ty of [place] [facility] Systolic blood 2021-04-25 22:36:00 118 mm[Hg] Univer sity of pressure [place] [facility] Diastolic blood 2021-04-25 22:36:00 70 mm[Hg] Unive rsity of pressure [place] [facility] Heart rate 2021-04-25 22:36:00 68 /min Universi ty of [place] [facility] Respiratory rate 2021-04-25 22:36:00 18 /min Univ ersity of [place] [facility] Oxygen saturation in 2021-04-25 22:36:00 99 /min University of Arterial blood by [place] Strap birdie Pulse oximetry Branch Body temperature 2021-04-25 [...] 98 /min University of Arterial blood by [place] Medi birdie Pulse oximetry Branch Heart rate [...] University of Arterial blood by [place] [facility] Pulse oximetry Branch Heart rate 2020-06-26 08:56:00 98 /min Universi ty of [place] [facility] Body temperature 2020-06-26 08:56:00 37.17 Priyanka Univ ersity of [place] [facility] Body weight 2020-06-26 08:56:00 74.844 kg Universi ty of [place] [facility] BMI 2020-06-26 08:56:00 25.09 kg/m2 Universi ty of [place] [facility] Systolic blood 2020-05-24 15:47:29 166 mm[Hg] Univer sity of pressure [place] [facility] Diastolic blood 2020-05-24 15:47:29 89 mm[Hg] Unive rsity of pressure [place] [facility] Heart rate 2020-05-24 15:47:29 86 /min Universi ty of [place] [facility] Respiratory rate 2020-05-24 15:47:29 16 /min Univ ersity of [place] [facility] Oxygen saturation in 2020-05-24 15:47:29 97 /min University of Arterial blood by [facility] Pulse oximetry Branch Body temperature 2020-05-24 11:44:00 36.94 Priyanka Univ ersity of [place] [facility] Body height 2020-05-24 11:44:00 172.7 cm Universi ty [facility] [place] [facility] Body weight 2020-05-24 11:44:00 74.844 kg Universi ty of [place] [facility] BMI 2020-05-24 11:44:00 25.09 kg/m2 Universi ty of [place] [facility] Systolic blood 2020-05-24 15:47:29 166 mm[Hg] Univer sity of pressure [place] [facility] Diastolic blood 2020-05-24 15:47:29 89 mm[Hg] Unive rsity of pressure [place] [facility] Heart rate 2020-05-24 15:47:29 86 /min Universi ty of [place] [facility] Respiratory rate 2020-05-24 15:47:29 16 /min Univ ersity of [place] [facility] Oxygen saturation in 2020-05-24 15:47:29 97 /min University of Arterial blood by [facility] Pulse oximetry Branch Body temperature 2020-05-24 11:44:00 [...] 02:31:00 72 mm[Hg] Unive rsity of pressure [facility] [place] [facility] Branch Heart rate 2020-03-24 02:31:00 69 /min Universi ty of [facility] Body temperature 2020-03-24 02:31:00 36.39 Priyanka Univ ersity of [facility] [place] [facility] Branch Respiratory rate 2020-03-24 02:31:00 18 /min Univ ersity of [facility] [place] [facility] Branch Oxygen saturation in 2020-03-24 02:31:00 97 /min University of Arterial blood by [facility] Pulse oximetry Branch Systolic blood 2020-03-23 21:35:00 100 mm[Hg] Univer sity of pressure [place] [facility] Diastolic blood 2020-03-23 21:35:00 59 mm[Hg] Unive rsity of pressure [facility] [place] [facility] Branch Heart rate 2020-03-23 21:35:00 79 /min Universi ty of [place] [facility] [place] Body temperature 2020-03-23 21:35:00 36.78 Priyanka Univ ersity of [facility] [place] [facility] Branch Respiratory rate 2020-03-23 21:35:00 18 /min Univ ersity of [facility] [place] [facility] Branch Oxygen saturation in 2020-03-23 21:35:00 99 /min University of Arterial blood by [facility] Pulse oximetry Branch Body weight 2020-03-23 09:41:00 [...] University of Arterial blood by [facility] birdie Pulse oximetry Branch Body temperature 2020-03-21 [...] University of Arterial blood by [facility] Pulse oximetry Branch Body height 2020-03-05 02:35:00 [...] Branch Respiratory rate 2020-03-02 15:49:00 19 /min [facility] acute hospital Oxygen saturation in 2020-03-02 15:49:00 96 /min University of Arterial blood by [facility] Pulse oximetry Branch Body height 2020-03-01 00:54:00 170.2 cm Universi ty [facility] Body weight 2020-03-01 00:54:00 76.975 kg Universi ty [facility] BMI 2020-03-01 00:54:00 26.58 kg/m2 Universi ty [facility] Systolic blood 2020-01-17 21:08:00 116 mm[Hg] Univer sity of pressure [facility] Diastolic blood 2020-01-17 21:08:00 78 mm[Hg] Unive rsity of pressure [facility] Heart rate 2020-01-17 21:08:00 88 /min Universi [facility] Body temperature 2020-01-17 21:08:00 36.72 Priyanka [facility] acute hospital Respiratory rate 2020-01-17 21:08:00 18 /min General acute hospital Oxygen saturation in 2020-01-17 21:08:00 98 /min [place] of Arterial blood by [facility] Pulse oximetry Branch Body height 2020-01-16 06:21:00 172.7 cm Universi ty [facility] Body weight 2020-01-16 04:35:00 83.462 kg [facility] BMI 2020-01-16 04:35:00 27.98 kg/m2 [facility] Procedures Procedure Date / Time Performing Clinician Source Performed XR LUMBAR SPINE 2 VW 2022-03-01 14:18:00 Angelika Aguilar [facility] EXTERNAL PROVIDER RECORDS 2021-11-19 06:01:00 Doctor Unassigned, [facility]da [facility] POCT GLUCOSE (AUTOMATED) 2021-11-02 22:49:00 Aida Shah [facility] POCT GLUCOSE (AUTOMATED) 2021-11-02 17:06:00 Aida Shah [facility] POCT GLUCOSE (AUTOMATED) 2021-11-02 13:30:00 Aida Shah [facility] TROPONIN I 2021-11-02 09:29:00 Alexandra Hdz [facility] BASIC METABOLIC PANEL 2021-11-02 09:29[facility], CO2, GLUCOSE, Medica l Branch BUN, CREATININE, CA) CBC WITH DIFF 2021-11-02 09:29:00 [facility] N-TERMINAL PRO-BNP 2021-11-02 09:29:00 Alexandra Hdz [facility] POCT GLUCOSE (AUTOMATED) 2021-11-02 01:27:00 Aida Shah [facility] POCT GLUCOSE (AUTOMATED) 2021-11-01 17:37[facility] 2021-11-01 13:40[facility] 2021-11-01 01:10:00 Aida Shah [facility] POCT GLUCOSE (AUTOMATED) 2021-10-31 22:28:00 Alyssa Aida [facility] POCT GLUCOSE (AUTOMATED) 2021-10-31 17:29:00 Martha Drake [facility] TROPONIN I 2021-10-31 16:25:00 Alexandra Hdz [facility] TRANSTHORACIC ECHO (TTE) 2021-10-31 15:53:00 Alexandra Hdz [facility] COMPLETE W/ CONTRAST Medical [facility] POCT GLUCOSE (AUTOMATED) 2021-10-31 13:39:00 Martha Drake Un [facility] TROPONIN I 2021-10-31 10:08:00 [facility] BASIC METABOLIC PANEL 2021-10-31 10:08:00 [facility] (NA, K, CL, CO2, GLUCOSE, Medica l Branch BUN, CREATININE, CA) LIPID PANEL ([id number])(TOTAL 2021-10-31 10:08:00 Alexandra Hdz [facility] TRIGLYCERIDES, HDL) CBC WITH DIFF 2021-10-31 10:08:00 [facility]ALYSIS 2021-10-31 10:08:00 [facility] N-TERMINAL PRO-BNP 2021-10-31 10:08:00 Alexandra Hdz [facility] TROPONIN I 2021-10-31 06:17:00 [facility] XR CHEST 1 VW 2021-10-31 01:30:56 Martha Drake [facility] LIPASE 2021-10-31 01:25:00 Martha Drake [facility] TROPONIN I 2021-10-31 01:25:00 Martha Drake [facility] COMP. METABOLIC PANEL 2021-10-31 01:25:00 Martha Drake [facility] ([id number]) [facility] CBC WITH DIFF 2021-10-31 01:25:00 Martha Drake [facility] GLYCOSYLATED HEMOGLOBIN 2021-10-31 01:25:00 [facility] PROTHROMBIN TIME / INR 2021-10-31 01:25:00 Martha Drake [facility] ACTIVATED PARTIAL 2021-10-31 01:25:00 Martha Drake [facility] N-TERMINAL PRO-BNP 2021-10-31 01:25:00 Martha Drake [facility] COVID-19 (ID NOW RAPID 2021-10-31 01:25:00 Martha Drake [facility] TESTING) Medical Branch LAB ONLY COVID 2021-10-31 01:25:00 Martha Drake [facility] INTERPRETATION [facility] HB ECG ROUTINE & RHYTHM 2021-10-31 01:20:03 Martha Drake [facility] URINALYSIS 2021-04-25 21:01:00 Nallely Zhao [facility] XR LUMBAR SPINE 2 VW 2021-04-25 18:41:00 Nallely Zhao [facility] XR HIPS 2 VW LEFT 2021-04-25 18:41:00 Nallely Zhao [facility] CONSENT/REFUSAL FOR 2021-04-25 15:43:06 Doctor Unacassie, [facility] DIAGNOSIS AND TREATMENT [facility] [place] [facility] CERVICAL SPINE WO 2020-06-26 09:35:01 NandinisdMartha [facility] CONTRAST [facility] CT LUMBAR SPINE WO 2020-06-26 09:35:01 Nandinisd [facility] CONTRAST [facility] CT THORACIC SPINE WO 2020-06-26 09:35:01 Vidal [facility] CONTRAST [facility] UNILATERAL DUPLEX SCAN OF 2020-05-24 14:53:40 [facility] Medical [place] XR ANKLE 3+ VW LEFT 2020-05-24 13:22:26 Charanjit Heck [facility] HEPATIC FUNCTION PANEL 2020-05-24 13:13:00 Charanjit Heck [facility] ([id number]) (ALB,T.PRO,BILI Medical Branch T,BU/BC,ALT,AST,ALK PHOS) BASIC METABOLIC PANEL 2020-05-24 13:13:00 Charanjit Heck [facility] (NA, K, CL, CO2, GLUCOSE, Medica l Branch BUN, CREATININE, CA) CBC WITH DIFFERENTIAL 2020-05-24 13:13:00 Charanjit Heck [facility] PROTHROMBIN TIME / INR 2020-05-24 13:13:00 Charanjit Heck [facility] ACTIVATED PARTIAL 2020-05-24 13:13:00 Charanjit Heck [facility] NOTICE OF PRIVACY 2020-05-24 11:38:26 Doctor Blaise, [facility] PRACTICES [facility] [place] CONSENT/REFUSAL FOR 2020-05-24 11:35:52 Doctor Blaise, [facility] DIAGNOSIS [facility] GLUCOSE (AUTOMATED) 2020-03-23 22:32:00 Jamel Flores [facility] POCT GLUCOSE (AUTOMATED) 2020-03-23 18:07:00 Jamel Flores Justina [facility] POCT GLUCOSE (AUTOMATED) 2020-03-23 14:57:00 Jamel Flores [facility] ECHO ROUTINE W/DOPPLER 2020-03-23 13:33:57 [facility] 2020-03-23 12:56:59 Jamel Flores [facility] MAGNESIUM 2020-03-23 11:15:00 Jerome [facility] TROPONIN I 2020-03-23 11:15:00 [facility] BASIC METABOLIC PANEL 2020-03-23 11:15:00 Jerome [facility] (NA, K, CL, CO2, GLUCOSE, Medica l Branch BUN, CREATININE, CA) PROTHROMBIN TIME / INR 2020-03-23 11:15:00 Tereza Cano [facility] ACTIVATED PARTIAL 2020-03-23 11:15:00 Jerome [facility] EKG-12 LEAD 2020-03-23 07:51:19 Jamel Flores [facility] MAGNESIUM 2020-03-23 05:55:00 Jerome [facility] TROPONIN I 2020-03-23 05:55:00 Jerome [facility] BASIC METABOLIC PANEL 2020-03-23 05:55:00 Jerome [facility] (NA, K, CL, CO2, GLUCOSE, Medica l Branch BUN, CREATININE, CA) LIPID PANEL ([id number])(TOTAL 2020-03-23 05:55:00 Tereza Cano [facility] TRIGLYCERIDES, HDL) PROTHROMBIN TIME / INR 2020-03-23 02:55:00 Sallie Eckert [facility] ACTIVATED PARTIAL 2020-03-23 02:55:00 [facility] CHEST 2 VW 2020-03-23 01:52:37 Singletary, [facility] CORONAVIRUS COVID-19 2020-03-23 00:50:00 Esteban Singletary [facility] FERRITIN SERUM 2020-03-22 23:36:00 [facility] TROPONIN I 2020-03-22 23:36:00 Danielle [facility] COMP. METABOLIC PANEL 2020-03-22 23:36:00 Danielle [facility] ([id number] IRON PANEL 2020-03-22 23:36:00 Jerome [facility] CBC WITH DIFFERENTIAL 2020-03-22 23:36:00 Danielle [facility] N-TERMINAL PRO-BNP 2020-03-22 23:36:00 Esteban Singletary [facility] EKG-12 LEAD 2020-03-22 23:08:53 [facility] 2020-03-22 23:08:15 Danielle [facility] XR CHEST 1 VW 2020-03-21 20:42:35 Myles Harry [facility] LACTIC ACID WHOLE BLOOD 2020-03-21 20:38:00 Myles Harry [facility] LIPASE 2020-03-21 20:19:00 Myles Harry [facility] TROPONIN I 2020-03-21 20:19:00 Myles Harry [facility] COMP. METABOLIC PANEL 2020-03-21 20:19:00 Myles Harry [facility] ([id number]) [facility] PROTHROMBIN TIME / INR 2020-03-21 20:19:00 Myles Harry [facility] N-TERMINAL PRO-BNP 2020-03-21 20:19:00 Myles Harry [facility] CORONAVIRUS COVID-19 2020-03-21 20:19:00 Myles Harry [facility] EKG-12 LEAD 2020-03-21 20:11:28 Myles Harry [facility] POCT GLUCOSE (AUTOMATED) 2020-03-07 20:56:00 EdconsueloSarah [facility] POCT GLUCOSE (AUTOMATED) 2020-03-07 15:34:00 EdconsueloSarah Cityblis [facility] POCT GLUCOSE (AUTOMATED) 2020-03-07 12:56:00 Julio CesarSarah [facility] URIC ACID 2020-03-07 10:14:00 Holland Garza [facility] TROPONIN I 2020-03-07 10:14:00 Steven [facility] BASIC METABOLIC PANEL 2020-03-07 10:14:00 [facility] (NA, K, CL, CO2, GLUCOSE, Medica l Branch BUN, CREATININE, CA) CBC WITH DIFFERENTIAL 2020-03-07 10:14:00 Julio Cesar [facility] N-TERMINAL PRO-BNP 2020-03-07 10:14:00 Steven [facility] POCT GLUCOSE (AUTOMATED) 2020-03-06 21:16:00 Edconsuelo [facility] POCT GLUCOSE (AUTOMATED) 2020-03-06 16:10:00 Julio Cesar [facility] POCT GLUCOSE (AUTOMATED) 2020-03-06 12:38:00 Edconsuelo [facility] TROPONIN I 2020-03-06 08:51:00 Steven [facility] BASIC METABOLIC PANEL 2020-03-06 08:51:[address] [facility] (NA, K, CL, CO2, GLUCOSE, Medica l Branch BUN, CREATININE, CA) CBC WITH DIFFERENTIAL 2020-03-06 08:51:00 Edconsuelo [facility] POCT GLUCOSE (AUTOMATED) 2020-03-06 01:16:00 Julio Cesar [facility] TROPONIN I 2020-03-05 23:25:00 Julio Cesar [facility] POCT GLUCOSE (AUTOMATED) 2020-03-05 21:14:00 Edionrosalio [facility] POCT GLUCOSE (AUTOMATED) 2020-03-05 16:39:00 [facility]lif[facility] POCT GLUCOSE (AUTOMATED) 2020-03-05 12:47:00 Julio Cesar [facility] TROPONIN I 2020-03-05 09:50:00 Ramónlifecare hospitals of north carolinarosalio [facility] BASIC METABOLIC PANEL 2020-03-05 09:50:00 [facility] (NA, K, CL, CO2, GLUCOSE, Medica l Branch BUN, CREATININE, CA) CBC WITH DIFFERENTIAL 2020-03-05 09:50:00 [facility] EKG-12 LEAD 2020-03-05 00:36:54 [facility] 2020-03-05 00:31:03 Renan [facility] CORONAVIRUS COVID-19 2020-03-05 00:03:00 Charanjit Heck [facility] XR CHEST 1 VW 2020-03-04 23:58:59 Charanjit Heck [facility] LIPASE 2020-03-04 23:29:00 Charanjit Heck [facility] TROPONIN I 2020-03-04 23:29:00 [facility]angNorthwest Medical CenterCharanjit [facility] HEPATIC FUNCTION PANEL 2020-03-04 23:29:00 Charanjit Heck [facility] ([id number]) (ALB,T.PRO,BILI [facility] T,BU/BC,ALT,AST,ALK PHOS) BASIC METABOLIC PANEL 2020-03-04 23:29:00 Charanjit Heck [facility] (NA, K, CL, CO2, GLUCOSE, Medica l Branch BUN, CREATININE, CA) CBC WITH DIFFERENTIAL 2020-03-04 23:29:00 Charanjit Heck [facility] PROTHROMBIN TIME / INR 2020-03-04 23:29:00 Charanjit Heck [facility] ACTIVATED PARTIAL 2020-03-04 23:29:00 [facility] N-TERMINAL PRO-BNP 2020-03-04 23:29:00 Charanjit Heck [facility] EKG-12 LEAD 2020-03-04 23:15:42 Umang [facility] EKG-12 LEAD 2020-03-04 23:10:23 Umang [facility] EMERGENCY DEPARTMENT 2020-03-04 05:01:00 Doctor Unassigned, [facility] DOCUMENTS Brenda Medical Branch POCT GLUCOSE (AUTOMATED) 2020-03-02 15:52:00 Lulu Harris [facility] POCT GLUCOSE (AUTOMATED) 2020-03-02 12:39:00 Lulu Harris [facility] MAGNESIUM 2020-03-02 08:57:[address] [facility] BASIC METABOLIC PANEL 2020-03-02 08:57:00 Ivory Leon [facility] (NA, K, CL, CO2, GLUCOSE, Medica l Branch BUN, CREATININE, CA) N-TERMINAL PRO-BNP 2020-03-02 08:57:00 Carolyn alek [facility] POCT GLUCOSE (AUTOMATED) 2020-03-01 20:39:00 Lulu Harris [facility] MAGNESIUM 2020-03-01 08:43:00 Lulu Harris [facility] TROPONIN I 2020-03-01 08:43:[address] [facility] BASIC METABOLIC PANEL 2020-03-01 08:43:00 Lulu Harris [facility] (NA, K, CL, CO2, GLUCOSE, Medica l Branch BUN, CREATININE, CA) CBC WITH DIFFERENTIAL 2020-03-01 08:43:00 Lulu Harris [facility] N-TERMINAL PRO-BNP 2020-03-01 08:43:00 Carolyn alek [facility] VITAMIN B12, LEVEL 2020-03-01 03:49:00 Carolyn alek [facility] FOLATE 2020-03-01 03:49:00 Carolyn alek [facility] SEDIMENTATION RATE 2020-03-01 03:49:00 Carolyn alek [facility] POCT GLUCOSE (AUTOMATED) 2020-03-01 03:39:00 Lulu Harris [facility] PHOSPHORUS 2020-03-01 02:28:00 Lulu Harris [facility] URIC ACID 2020-03-01 02:28:[address] [facility] TROPONIN I 2020-03-01 02:28:[address] [facility] HEPATIC FUNCTION PANEL 2020-03-01 02:28:00 Ivory Leon [facility] ([id number]) (ALB,T.PRO,BILI [facility] T,BU/BC,ALT,AST,ALK PHOS) PROTHROMBIN TIME / INR 2020-03-01 02:28:00 Ivory Leon [facility] N-TERMINAL PRO-BNP 2020-03-01 02:28:00 Lulu Harris [facility] PROCALCITONIN 2020-03-01 02:28:[address] [facility] EKG-12 LEAD 2020-03-01 01:54:[address] [facility] EKG-12 LEAD 2020-02-29 23:16:21 Bobo Urrutia [facility] XR CHEST 1 VW COVID 2020-02-29 23:14:25 Bobo Urrutia [facility] EKG-12 LEAD 2020-02-29 23:13:50 Bobo Urrutia [facility] LACTIC ACID WHOLE BLOOD 2020-02-29 22:21:00 Bobo Urrutia [facility] CORONAVIRUS COVID-19 2020-02-29 22:20:00 Bobo Urrutia [facility] CREATINE KINASE 2020-02-29 22:14:00 Carolyn alek [facility] URIC ACID 2020-02-29 22:14:[address] [facility] LIPASE 2020-02-29 22:14:00 Bobo Urrutia [facility] MAGNESIUM 2020-02-29 22:14:[address] [facility] TROPONIN I 2020-02-29 22:14:00 Bobo Urrutia [facility] THYROID STIMULATING 2020-02-29 22:14:00 Ivory Leon [facility] HORMONE [facility] BASIC METABOLIC PANEL 2020-02-29 22:14:00 Bobo Urrutia [facility] (NA, K, CL, CO2, GLUCOSE, Medica l Branch BUN, CREATININE, CA) CBC WITH DIFFERENTIAL 2020-02-29 22:14:00 Bobo Urrutia [facility] GLYCOSYLATED HEMOGLOBIN 2020-02-29 22:14:00 Carolyn [facility] (A1C) [facility] N-TERMINAL PRO-BNP 2020-02-29 22:14:00 Carolyn alek [facility] EKG-12 LEAD 2020-02-29 21:59:12 [facility] 2020-02-29 21:48:49 [facility]Y [facility]PART[facility] 2020-02-29 05:01:00 Doctor Unassigned, [facility] DOCUMENTS Brenda [facility] POCT GLUCOSE (AUTOMATED) 2020-01-17 18:15:00 Julio Cesar [facility] TROPONIN I 2020-01-17 16:31:00 Julio Cesar [facility] ACTIVATED PARTIAL 2020-01-17 16:31:00 Carolyn [facility] POCT GLUCOSE (AUTOMATED) 2020-01-17 11:56:00 Julio Cesar [facility] TROPONIN I 2020-01-17 09:52:00 Julio Cesar [facility] BASIC METABOLIC PANEL 2020-01-17 09:52:[address] [facility] (NA, K, CL, CO2, GLUCOSE, Medica l Branch BUN, CREATININE, CA) CBC WITH DIFFERENTIAL 2020-01-17 09:52:00 Julio Cesar [facility] ACTIVATED PARTIAL 2020-01-17 09:52:00 Julio Cesar [facility] POCT GLUCOSE (AUTOMATED) 2020-01-16 23:59:00 Julio Cesar [facility] EKG-12 LEAD 2020-01-16 22:15:50 [facility] I 2020-01-16 20:04:00 [facility] ACTIVATED PARTIAL 2020-01-16 20:04:00 Kael [facility] POCT GLUCOSE (AUTOMATED) 2020-01-16 17:05:00 [facility] GLU[facility]SE (AUTOMATED) 2020-01-16 13:38:00 Ram[facility]osal[facility] TROPONIN I 2020-01-16 11:11:00 Ramónlifec[facility] hospitals [facility] carolinarosalioB[facility] LIPID PANEL ([id number])(TOTAL 2020-01-16 11:11:00 Ramónlifec[facility] hospitals [facility] carolinarosalio[facility]LE[facility] TRIGLYCERIDES, HDL) ACTIVATED PARTIAL 2020-01-16 11:11:00 [facility] 2020-01-16 05:48:18 Umang [facility] XR CHEST 1 VW 2020-01-16 04:46:44 Umang [facility] TROPONIN I 2020-01-16 04:38:00 Umang Charanjit [facility] HEPATIC FUNCTION PANEL 2020-01-16 04:38:00 Charanjit Heck [facility] ([id number]) (ALB,T.PRO,BILI Medical Branch T,BU/BC,ALT,AST,ALK PHOS) BASIC METABOLIC PANEL 2020-01-16 04:38:00 Charanjit Heck [facility] (NA, K, CL, CO2, GLUCOSE, Medica l Branch BUN, CREATININE, CA) CBC WITH DIFFERENTIAL 2020-01-16 04:38:00 Charanjit Heck [facility] GLYCOSYLATED HEMOGLOBIN 2020-01-16 04:38:00 [facility] ([facility] PROTHROMBIN TIME / INR 2020-01-16 04:38:00 Charanjit Heck [facility] ACTIVATED PARTIAL 2020-01-16 04:38:00 Charanjit Heck [facility] THRLAS [facility] N-TERMINAL PRO-BNP 2020-01-16 04:38:00 Charanjit Heck [facility] EKG-12 LEAD 2020-01-16 04:37:48 Charanjit Heck [facility] EKG-12 LEAD 2020-01-16 04:35:35 Charanjit Heck [facility] AUTHORIZATION FOR RELEASE 2019-07-12 05:01:00 Doctor Unassigned, [facility] Encounters Start End Encounter Admission Attending Care Care Encounter Source Date/Time Date/Time Type Type Clinicians Facility Department ID 2022-03-06 Outpatient [facility] [id number] [place] 08:51:10 [id number] [facility] 2021-12-16 Inpatient [facility] [id number] [facility] 11:30:00 [facility] 2021-12-16 Outpatient [facility] [id number] [place] 09:19:01 [facility] 2021-12-11 Outpatient Millender, [facility]LMLC [facility] [id number] Common 14:38:21 Anneliese [facility] 2021-12-11 Outpatient Millender, [facility]LMLC [facility] [id number] Common 11:50:18 Anneliese [facility] 2021-09-16 Emergency [facility] [id number] Univers 00:23:34 ity [facility] 2021-09-13 Emergency [facility] [id number] Univers 11:42:[facility]13 Emergency [facility] [id number] Univers 05:40:48 [facility] 2022-03-05 2022-03-10 Inpatient Abiola MURGUIA, [facility] CAR [id number] [facility] 06:12:00 22:30:00 BRODIE 2022-03-01 2022-03-01 Emergency X LAUREN AZCESAR ERT [id number] Univers 06:52:00 12:04:00 ANGELIKA leon [facility] 2022-03-01 2022-03-01 Emergency Lauren AZCESAR [id number] Univers 06:52:00 12:04:00 Angelika RAMSEY [id number] ity [facility] [id number] [phone] [facility] 084 Branch 2021-12-25 2021-12-25 Inpatient ATTAR, [facility] [id number] [place] 00:00:00 00:00:[address] 2021-12-19 2021-12-25 Inpatient LAUREN, [facility] [id number] [place] 00:00:00 00:00:00 JAYSON [address] 2021-12-24 2021-12-24 ambulatory STLMLC STLMLC [id number] Common 00:00:00 00:00:00 [facility] 2021-12-20 2021-12-20 Inpatient ATTAR, [facility] [id number] [place] 00:00:00 00:00:00 [address] 2021-12-17 2021-12-17 ambulatory STLMLC STLMLC [id number] Common 00:00:00 00:00:00 [facility] 2021-12-16 2021-12-16 ambulatory STLMLC STLMLC [id number] Common 00:00:00 00:00:00 [facility] 2021-11-19 2021-11-19 Orders Doctor ROBERT [id number] Univers 00:00:00 00:00:00 Only Unassigned, ASHLEIGH [id number] ity [facility] [id number] [place] [id number] [facility] 009 Branch 2021-11-04 2021-11-04 Transition SHAREE Maria [id number] Univers 00:00:00 00:00:00 of Care Supa GREWAL [id number] [id number] [id number] [facility] 403 Branch 2021-10-30 2021-11-02 [facility] [id number] Univers 19:14:00 18:15:00 AIDA ity of [facility] Branch 2021-10-30 2021-11-02 Hospital Martha Drake [facility] 1.2.840. [id number] Univers 19:14:00 18:15:00 Encounter Aida Shah [id number] ity of [place] [id number] [facility] [id number] [facility] 081 Branch 2021-05-17 2021-05-17 Letter PcpROBERT [id number] Univers 00:00:00 00:00:00 (Out) Patient ASHLEIGH [id number] it y of [facility] 4.2.7.2.686 [place] Have A [id number] [facility] 019 Branch 2021-04-25 2021-04-25 Emergency Cece, TRAUMA [id number] Univers 10:43:00 17:38:00 Formerly named [facility] [id number] i ty of [facility] [id number] [facility] [id number] [facility] 014 Branch 2020-06-26 2020-06-26 Emergency [facility] [id number] 03:50:00 06:45:00 Martha Ramsey [id number] [place] 4.2.7.2.686 [place] [id number] 2020-06-26 2020-06-26 [facility] [id number] Univers 03:50:00 06:45:00 Martha Ramsey [id number] ity of [place] 4.2.7.2.[address] [facility] [id number] [facility] 084 Branch 2020-05-24 2020-05-24 [facility] [id number] 06:40:47 10:54:00 Charanjit Ramsey [id number] [place] 4.2.7.2.686 [place] [id number] 08 2020-05-24 2020-05-24 Emergency [facility] [id number] Univers 06:40:47 10:54:00 Charanjit Ramsey [id number] i ty [facility] 4[place]2.7.2.686 [place] [id number] [address] 2020-03-29 2020-03-29 Letter Jamel Flores 1.2.840.114 [id number] 00:00:00 00:00:00 (Out) T Ashleigh [id number] [facility] [id number] [id number] [facility] 2020-03-29 2020-03-29 Letter Jamel Flores [id number] Univers 00:00:00 00:00:00 (Out) T [place] [id number] it y of [facility] 4.2.7.2.686 [place] [id number] [address] 2020-03-26 2020-03-26 Transition Sharee George 1.2.840.114 [id number] 00:00:00 00:00:00 of Care Sherrell Grewal [id number] [place] 4.2.7.2.686 [id number] [facility] 2020-03-26 2020-03-26 Transition Sharee George [id number] Univers 00:00:00 00:00:00 of Care Sherrell Grewal [id number] it y of [place] 4.2.7.2.686 [place] [id number] [address] 2020-03-22 2020-03-23 Emergency Sallie Eckert 1.2.840. 114 [id number] Univers 18:02:47 21:55:00 Jamel Flores [id number] ity [facility] [id number] [place] [id number] [address] 2020-03-22 2020-03-23 Outpatient X JAMEL FLORES [facility] [id number] [facility] 18:02:47 21:55:00 ity [facility] 2020-03-21 2020-03-21 Emergency [facility] 1.2.840.114 [id number] Univers 15:02:08 17:16:00 Myles aRmsey [id number] i ty of [place] 4.2.7.2.[address] [facility] [id number] [address] 2020-03-21 2020-03-21 Emergency X KAMRYN, [facility] ERT [id number] Univers 15:02:08 17:16:00 MYLES ity of [facility] 2020-03-13 2020-03-13 Outpatient Raju_P MMG MMG [id number] [place] 05:24:00 05:24:00 [facility] 2020-03-08 2020-03-08 Transition Sharee Cool 1.2.840.114 [id number] Univers 00:00:00 00:00:00 of Care Prema Grewal [id number] i ty of [place].2.[place] [id number] [address] 2020-03-04 2020-03-07 [facility] Charanjit Heck [facility] 1.2.840.1 [id number] Univers 18:01:05 18:00:00 Encounter Sarah Adorno [id number] ity of [place] [id number] [facility] [id number] [address] 2020-03-04 2020-03-07 Inpatient X JULIO CESAR [facility] ZEFERINO [id number] Univers 18:01:05 18:00:00 SARAH leon [facility] 2020-03-03 2020-03-03 Transition Sharee Silva 1.2.840.114 [id number] Univers 00:00:00 00:00:00 of Care Isatu Twan 350.1.13.10 [place] [phone] [address] 2020-02-29 2020-03-02 [facility] Bobo Urrutia [facility] 1.2.840.11 4 [id number] Univers 16:53:09 12:18:00 Encounter Lulu Harris 350.1.13.10 it[place] of [place] [phone] [place] [address] [place] 2020-02-29 2020-03-02 Inpatient X STEVEN [facility] ZEFERINO [id number] Univers 16:53:09 12:18:00 LULU leon [facility] 2020-02-15 2020-02-15 Outpatient [facility] [id number] Univers 11:30:00 11:30:00 ROSEMARY [facility] 2020-02-15 2020-02-15 [facility] 1.2.840.114 [id number] Univers 08:13:42 08:43:42 ne Visit Rosemary Ramsey 350.1.13.10 [place] [phone] Id dical nal [address] 2020-01-18 2020-01-18 Transition Sharee Harvey 1.2.840.114 [id number] Univers 00:00:00 00:00:00 of Care Ana M Grewal 350.1.13.10 it [place] of [place] [phone] [facility] [address] 2020-01-15 2020-01-17 [facility] 1.2.840.1 14 [id number] Univers 22:33:37 16:58:00 Encounter Sarah Adorno 350.1.13.10 [place] of [place] [phone] [place] [address] [place] 2020-01-15 2020-01-17 Outpatient X JULIO CESAR [facility] Z[facility] [id number] Univers 22:33:37 16:58:00 SARAH leon [facility] 2019-10-07 2019-10-07 [facility] [id number] Common 10:48:00 10:48:[address] [facility] [address] [facility] 2019-10-05 2019-10-05 [facility] [id number] Common 16:06:00 16:06:00 [facility] 2019-07-27 2019-07-27 Refill Chava AZCESAR 1.2.840.114 [id number] Univers 00:00:00 00:00:00 Rosemary Ramsey 350.1.13.10 i [place] of [place] [phone] Id dical [facility] [address] [facility] 2019-07-12 2019-07-12 [facility] [id number] Common 16:24:00 16:24:00 [facility] 2019-07-12 2019-07-12 Orders Doctor ROBERT 1.2.840.114 [id number] Univers 00:00:00 00:00:00 Only Unassigned, ASHLEIGH 350.1.13.10 ity of [place] [facility] 4.2.7.2.686 [place] [phone] [facility] [address] 2019-07-06 2019-07-06 [facility] [id number] Common 14:00:00 14:00:00 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 (test code = 50659-5) Whether the patient has symptoms related to condition of interest (test code = 97679-3) Patient was hospitalized because of this condition (test code = 56293-3) Whether the patient was admitted to intensive care unit (ICU) for condition of interest (test code = 65044-9) Whether patient resides in a congregate care setting (test code = 95869-7) POCT GLUCOSE (AUTOMATED)2021-11-02 22:57:12 Test Item Value Reference Range Interpretation Comments POCT GLU (test code = 1868037262) 224 mg/dL 70-110 H Lab Interpretation (test code = Abnormal 20738-9) [facility] [id number] 22:37:57 Test Item Value Reference Range Interpretation Comments Lab Interpretation (test code = Abnormal 21678-3) [facility] GLUCOSE (AUTOMATED)2021-11-02 17:43:02 Test Item Value Reference Range Interpretation Comments POCT GLU (test code = 5109574551) 264 mg/dL 70-110 H Lab Interpretation (test code = Abnormal 04072-6) [facility] [id number] 15:07:47 Test Item Value Reference Interpretation Comments Range TROPONIN I (test 0.064 ng/mL See_Comment H [Automated code = 0242488823) message] The system which generated this result [...] biotin. Lab Interpretation Abnormal (test code = 76479-7) [facility] [id number] 15:04:26 Test Item Value Reference Range Interpretation Comments NT-proBNP (test code 800 pg/mL See_Comment H [Autom ated = 5594953607) message] The system which generated this result transmitted reference range : <=450. The reference range was not used to interpret this result as normal/abnormal . ALYSSA (test code = ALYSSA) Biotin has been reported to cause a negative bias, interpret results relative to patient's use of biotin. Lab Interpretation Abnormal (test code = 30924-2) [facility] GLUCOSE (AUTOMATED)2021-11-02 13:36:38 Test Item Value Reference Range Interpretation Comments POCT GLU (test code = 9532384031) 185 mg/dL 70-110 H Lab Interpretation (test code = Abnormal 70620-8) [facility] METABOLIC PANEL (NA, K, CL, CO2, GLUCOSE, BUN, CREATININE, CA)2021-11-02 10:26:43 Test Item Value Reference Range Interpretation Comments NA (test code = 136 mmol/L 135-145 7753342064) K (test code = 4.0 mmol/L 3.5-5.0 0980343956) CL (test code = 99 mmol/L 98-108 1382065414) CO2 TOTAL (test code = 27 mmol/L 23-31 6964304801) AGAP (test code = 2-16 4096111063) BUN (test code = 30 mg/dL 7-23 H 3097008683) GLUCOSE (test code = 165 mg/dL 70-110 H 6993933840) CREATININE (test code = 1.42 mg/dL 0.60-1.25 H 6019349772) CALCIUM (test code = 9.5 mg/dL 8.6-10.6 7001546059) eGFR (test code = mL/min/1.73m2 4377361589) ALYSSA (test code = ALYSSA) Association of [...] tests). Lab Interpretation Abnormal (test code = 34300-2) [facility] WITH [id number] 10:01:58 Test Item Value Reference Range Interpretation Comments WBC (test code = See_Comment [Automated 2490-2) message] The sy stem which generated this [...] RDW-SD (test code = 39.8 fL 38.5-51.6 06009-2) RDW-CV (test code = 11.5 % 12.1-15.4 L 788-0) PLT (test code = See_Comment [Automated 777-3) message] The sy stem which generated this result transmitted reference range : 150 - 328 10*3/ ?L. The reference r corey was not used to interpret this result as normal/abnormal . MPV (test code = 10.5 fL 9.8-13.0 72183-1) NRBC/100 WBC (test See_Comment [Automat ed code = 8419188760) message] The system which generated this result transmitted reference range : 0.0 - 10.0 /100 WBCs. The refer ence range was not u sed to interpret th is result as normal/abnormal . NRBC x10^3 (test code <0.01 See_Comment [Auto mated = 7171543157) message] The s ystem which generated this result transmitted reference range : 10*3/?L. The reference range was not used to interpret this result as normal/abnormal . GRAN MAT (NEUT) % 59.3 % (test code = 770-8) IMM GRAN % (test code 0.30 % = 2060890802) LYMPH % (test code = 25.0 % 736-9) MONO % (test code = 10.7 % 5905-5) EOS % (test code = 4.1 % 713-8) BASO % (test code = 0.6 % 706-2) GRAN MAT x10^3(ANC) 4.19 10*3/uL 1.99-6.95 (test code = 7231789991) IMM GRAN x10^3 (test <0.03 0.00-0.06 code = 0255220295) LYMPH x10^3 (test code 1.77 10*3/uL 1.09-3.23 = 731-0) MONO x10^3 (test code 0.76 10*3/uL 0.36-1.02 = 742-7) EOS x10^3 (test code = 0.29 10*3/uL 0.06-0.53 711-2) BASO x10^3 (test code 0.04 10*3/uL 0.01-0.09 = 704-7) Lab Interpretation Abnormal (test code = 05690-8) [facility] GLUCOSE (AUTOMATED)2021-11-02 01:29:56 Test Item Value Reference Range Interpretation Comments POCT GLU (test code = 8698014926) 167 mg/dL 70-110 H Lab Interpretation (test code = Abnormal 27180-1) [facility] GLUCOSE (AUTOMATED)2021-11-01 17:40:19 Test Item Value Reference Range Interpretation Comments POCT GLU (test code = 4680584305) 193 mg/dL 70-110 H Lab Interpretation (test code = Abnormal 41811-5) [facility] GLUCOSE (AUTOMATED)2021-11-01 13:44:28 Test Item Value Reference Range Interpretation Comments POCT GLU (test code = 0046616622) 200 mg/dL 70-110 H Lab Interpretation (test code = Abnormal 17531-6) [facility] GLUCOSE (AUTOMATED)2021-11-01 01:38:43 Test Item Value Reference Range Interpretation Comments POCT GLU (test code = 5860261725) 177 mg/dL 70-110 H Lab Interpretation (test code = Abnormal 40473-6) [facility] GLUCOSE (AUTOMATED)2021-10-31 22:39:43 Test Item Value Reference Range Interpretation Comments POCT GLU (test code = 9354997296) 174 mg/dL 70-110 H Lab Interpretation (test code = Abnormal 56192-8) [facility] GLUCOSE (AUTOMATED)2021-10-31 17:40:22 Test Item Value Reference Range Interpretation Comments POCT GLU (test code = 9935270408) 224 mg/dL 70-110 H Lab Interpretation (test code = Abnormal 22391-2) [facility] [id number] 17:14:58 Test Item Value Reference Interpretation Comments Range TROPONIN I (test 0.080 ng/mL See_Comment H [Automated code = 0472497053) message] The system which generated this result [...] biotin. Lab Interpretation Abnormal (test code = 93250-0) [facility]AL [id number] 15:14:03 Test Item Value Reference Range Interpretation Comments NT-proBNP (test code 474 pg/mL See_Comment H [Autom ated = 5098703081) message] The system which generated this result transmitted reference range : <=450. The reference range was not used to interpret this result as normal/abnormal . ALYSSA (test code = ALYSSA) Biotin has been reported to cause a negative bias, interpret results relative to patient's use of biotin. Lab Interpretation Abnormal (test code = 72370-5) [facility] HospitalLIPID PANEL (55264)(TOTAL CHOLESTEROL, TRIGLYCERIDES, HDL)2021-10-31 15:05:19 Test Item Value Reference Range Interpretation Comments CHOL (test code = 101 mg/dL 120-200 L 1646965130) HDL (test code = 36 mg/dL >40 L 6947327291) HDLC RATIO (test code = See_Comment [Au tomated message] 7478215967) The system [employer] generated this result transmit diamante reference range : <=5.0. The refe rence range was not u sed to interpret th is result as normal/abnormal . TRIG (test code = 143 mg/dL 30-170 2538280436) LDL CHOL (test code = 36 mg/dL See_Comment [Auto mated message] 03791-9) The system [employer] generated this result transmit diamante reference range : <=160. The refe rence range was not u sed to interpret th is result as normal/abnormal . VLDL (test code = 29 mg/dL 5-60 5945319685) Lab Interpretation (test Abnormal code = 05216-3) [facility]2021-10-31 13:44:00 Test Item Value Reference Range Interpretation Comments POCT GLU (test code = 9184828186) 150 mg/dL 70-110 H Lab Interpretation (test code = Abnormal 63268-1) [facility] with [id number] 11:13:14 Test Item Value Reference Range Interpretation Comments WBC (test code = See_Comment [Automated 2590-2) message] The sy stem which generated this result transmitted reference range : 4.20 - 10.70 10*3/?L. The reference range was not used to interpret this result as normal/abnormal . RBC (test code = See_Comment L [Automated 409-8) message] The sy stem which generated this [...] RDW-SD (test code = 39.9 fL 38.5-51.6 52478-6) RDW-CV (test code = 11.8 % 12.1-15.4 L 788-0) PLT (test code = See_Comment [Automated 777-3) message] The sy stem which generated this result transmitted reference range : 150 - 328 10*3/ ?L. The reference r corey was not used to interpret this result as normal/abnormal . MPV (test code = 11.0 fL 9.8-13.0 32652-2) NRBC/100 WBC (test See_Comment [Automat ed code = 6984819891) message] The system which generated this result transmitted reference range : 0.0 - 10.0 /100 WBCs. The refer ence range was not u sed to interpret th is result as normal/abnormal . NRBC x10^3 (test code <0.01 See_Comment [Auto mated = 2882463773) message] The s ystem which generated this result transmitted reference range : 10*3/?L. The reference range was not used to interpret this result as normal/abnormal . GRAN MAT (NEUT) % 64.3 % (test code = 770-8) IMM GRAN % (test code 0.30 % = 1948381633) LYMPH % (test code = 21.7 % 736-9) MONO % (test code = 10.0 % 5905-5) EOS % (test code = 3.1 % 713-8) BASO % (test code = 0.6 % 706-2) GRAN MAT x10^3(ANC) 4.35 10*3/uL 1.99-6.95 (test code = 7855735141) IMM GRAN x10^3 (test <0.03 0.00-0.06 code = 9904626038) LYMPH x10^3 (test code 1.47 10*3/uL 1.09-3.23 = 731-0) MONO x10^3 (test code 0.68 10*3/uL 0.36-1.02 = 742-7) EOS x10^3 (test code = 0.21 10*3/uL 0.06-0.53 711-2) BASO x10^3 (test code 0.04 10*3/uL 0.01-0.09 = 704-7) Lab Interpretation Abnormal (test code = 22244-5) [id number] 11:09:53 Test Item Value Reference Interpretation Comments Range TROPONIN I (test 0.101 ng/mL See_Comment H [Automated code = 0464827406) message] The system which generated this result [...] biotin. Lab Interpretation Abnormal (test code = 53979-4) [facility] Metabolic Panel (NA, K, CL, CO2, GLUCOSE, BUN, CREATININE, CA)2021-10-31 10:59:31 Test Item Value Reference Range Interpretation Comments NA (test code = 139 mmol/L 135-145 4689676326) K (test code = 4.1 mmol/L 3.5-5.0 6414718099) CL (test code = 103 mmol/L 98-108 3749182246) CO2 TOTAL (test code = 28 mmol/L 23-31 9540508544) AGAP (test code = 2-16 5054557135) BUN (test code = 43 mg/dL 7-23 H 8837661554) GLUCOSE (test code = 165 mg/dL 70-110 H 9084337677) CREATININE (test code = 1.68 mg/dL 0.60-1.25 H 8947837847) CALCIUM (test code = 9.6 mg/dL 8.6-10.6 0223065451) eGFR (test code = mL/min/1.73m2 6911633167) ALYSSA (test code = ALYSSA) Association of [...] tests). Lab Interpretation Abnormal (test code = 12634-0) [facility] HospitalGlycosylated Hemoglobin (A1C)2021-10-31 09:13:40 Test Item Value Reference Range Interpretation Comments HGB A1C (test code = 6.8 % 4.0-5.7 H 4548-4) ALYSSA (test code = ALYSSA) Reference RangesNormal: <5.7%Prediabetes: 5.7 - 6.4%Diabetes: > 6.5% Lab Interpretation (test Abnormal code = 39559-3) [facility] [id number] 06:48:18 Test Item Value Reference Interpretation Comments Range TROPONIN I (test 0.082 ng/mL See_Comment H [Automated code = 1037027719) message] The system which generated this result [...] biotin. Lab Interpretation Abnormal (test code = 77970-2) [facility] [id number] 02:09:48 Test Item Value Reference Interpretation Comments Range TROPONIN I (test 0.067 ng/mL See_Comment H [Automated code = 4028008673) message] The system which generated this result [...] biotin. Lab Interpretation Abnormal (test code = 89576-4) [facility]MINAL [id number] 02:06:31 Test Item Value Reference Range Interpretation Comments NT-proBNP (test code 318 pg/mL See_Comment [Autom ated = 4910913284) message] The system which generated this result transmitted reference range : <=450. The reference range was not used to interpret this result as normal/abnormal . ALYSSA (test code = ALYSSA) Biotin has been reported to cause a negative bias, interpret results relative to patient's use of biotin. Lab Interpretation Normal (test code = 83741-9) [facility] HospitalCOMP. METABOLIC PANEL (86415)2021-10-31 01:58:28 Test Item Value Reference Range Interpretation Comments NA (test code = 137 mmol/L 135-145 3494132863) K (test code = 4.1 mmol/L 3.5-5.0 8403048352) CL (test code = 101 mmol/L 98-108 2402812848) CO2 TOTAL (test code = 26 mmol/L 23-31 8766276191) AGAP (test code = 2-16 9435751099) BUN (test code = 46 mg/dL 7-23 H 1903361971) GLUCOSE (test code = 213 mg/dL 70-110 H 6391531096) CREATININE (test code = 1.96 mg/dL 0.60-1.25 H 7670097143) TOTAL BILI (test code = 0.9 mg/dL 0.1-1.8 8466713040) CALCIUM (test code = 9.7 mg/dL 8.6-10.6 5633006501) T PROTEIN (test code = 7.0 g/dL 6.3-8.2 9265537447) ALBUMIN (test code = 4.3 g/dL 3.5-5.0 0950476803) ALK PHOS (test code = 58 U/L 34-122 3562872268) ALTv (test code = 20 U/L 5-50 1742-6) AST(SGOT) (test code = 27 U/L 13-40 6072833500) eGFR (test code = mL/min/1.73m2 7685613736) ALYSSA (test code = ALYSSA) Association of [...] tests). Lab Interpretation Abnormal (test code = 49696-5) [facility] HospitalLIPASE, [id number] 01:57:48 Test Item Value Reference Range Interpretation Comments LIPASE (test code = 4664911448) 330 U/L 0-220 H Lab Interpretation (test code = Abnormal 00961-0) [facility] HospitalaPTT2021-12-16 01:55:04 Test Item Value Reference Range Interpretation Comments APTT Patient (test See_Comment [Automat ed code = 3173-2) message] The system which generated this result transmitted reference range : 23 - 38 Seconds . The reference range was not used to interpr et this result as normal/abnormal . ALYSSA (test code = ALYSSA) The [facility] patient population mean normal value for aPTT is 30 seconds. Lab Interpretation Normal (test code = 50299-7) [facility] HospitalPROTHROMBIN TIME / [id number] 01:53:08 Test Item Value Reference Range Interpretation [...] tions. Lab Interpretation (test Normal code = 14383-6) [facility] HospitalCB WITH [id number] 01:45:44 Test Item Value Reference Range Interpretation [...] RDW-SD (test code = 39.1 fL 38.5-51.6 33804-4) RDW-CV (test code = 11.6 % 12.1-15.4 L 788-0) PLT (test code = See_Comment [Automated 777-3) message] The sy stem which generated this result transmitted reference range : 150 - 328 10*3/ ?L. The reference r corey was not used to interpret this result as normal/abnormal . MPV (test code = 10.4 fL 9.8-13.0 61114-0) NRBC/100 WBC (test See_Comment [Automat ed code = 6444456126) message] The system which generated this result transmitted reference range : 0.0 - 10.0 /100 WBCs. The refer ence range was not u sed to interpret th is result as normal/abnormal . NRBC x10^3 (test code <0.01 See_Comment [Auto mated = 2912118634) message] The s ystem which generated this result transmitted reference range : 10*3/?L. The reference range was not used to interpret this result as normal/abnormal . GRAN MAT (NEUT) % 62.1 % (test code = 770-8) IMM GRAN % (test code 0.30 % = 0403803228) LYMPH % (test code = 23.4 % 736-9) MONO % (test code = 10.8 % 5905-5) EOS % (test code = 2.9 % 713-8) BASO % (test code = 0.5 % 706-2) GRAN MAT x10^3(ANC) 4.14 10*3/uL 1.99-6.95 (test code = 7734735813) IMM GRAN x10^3 (test <0.03 0.00-0.06 code = 0567912015) LYMPH x10^3 (test code 1.56 10*3/uL 1.09-3.23 = 731-0) MONO x10^3 (test code 0.72 10*3/uL 0.36-1.02 = 742-7) EOS x10^3 (test code = 0.19 10*3/uL 0.06-0.53 711-2) BASO x10^3 (test code 0.03 10*3/uL 0.01-0.09 = 704-7) Lab Interpretation Abnormal (test code = 49747-6) [facility]UR[facility]IS2021-[facility]-10 21:15:48 Test Item Value Reference Range Interpretation Comments APPEARANCE (test code = Clear Clear 6017261041) COLOR (test code = Yellow Yellow 6938492193) PH (test code = 4.8-8.0 7639995975) SP GRAVITY (test code = 1.003-1.030 7330717932) GLU U QUAL (test code = 50 mg/dL Normal A 0883504324) BLOOD (test code = Negative Negative INTERFERE NCE FROM 1089991606) ASCORBIC ACID M AY CAUSE FALSE NEG ATIVE RESULT KETONES (test code = Negative Negative 7396575232) PROTEIN (test code = Negative Negative 2887-8) UROBILIN (test code = Normal Normal 2925234090) BILIRUBIN (test code = Negative Negative 9094042289) NITRITE (test code = Negative Negative 8684669170) LEUK JESS (test code = Negative Negative 0301132522) RBC/HPF (test code = See_Comment [Autom ated message] 3229917922) The system [employer] generated this result transmitted ref erence range: 0 - 3 HP F. The reference range was not used to int erpret this result as normal/abnormal . WBC/HPF (test code = See_Comment [Autom ated message] 8703327717) The system [employer] generated this result transmitted ref erence range: 0 - 5 HP F. The reference range was not used to int erpret this result as normal/abnormal . BACTERIA (test code = Negative Negative 0543518528) SQ EPITH (test code = <1 See_Comment [Auto mated message] 1510941168) The system [employer] generated this result transmitted ref erence range: <=2 HPF. The reference range was not used to int erpret this result as normal/abnormal . HYAL CAST (test code = See_Comment [Aut omated message] 4677800417) The system [employer] generated this result transmitted ref erence range: <=2 LPF. The reference range was not used to int erpret this result as normal/abnormal . Lab Interpretation (test Abnormal code = 99412-9) [facility]XR LUMBAR SPINE 2 [id number] 20:30:53 Impression: Postoperative changes. Degenerative changes. No [...] acute bony abnormality identified.End of Report.RL: 3901 [facility] HIPS 2 VW [id number] 20:24:52Impression: Postoperative changes. Degenerative changes. No acute [...] MRI is available.End of Report.RL: [facility] (NA, K, CL, CO2, GLUCOSE, BUN, CREATININE, CA)2020-05-24 14:15:00 Test Item Value Reference Range Interpretation Comments NA (test code = 139 mmol/L 135-145 0674551190) K (test code = 4.1 mmol/L 3.5-5 1194062868) CL (test code = 104 mmol/L 98-108 2454397288) CO2 TOTAL (test code = 26 mmol/L 23-31 5004609650) AGAP (test code = 2-16 1781190203) BUN (test code = 22 mg/dL 7-23 9026407839) GLUCOSE (test code = 203 mg/dL 70-110 H 7258997366) CREATININE (test code = 1.40 mg/dL 0.6-1.25 H 0013844422) CALCIUM (test code = 9.1 mg/dL 8.6-10.6 2188945031) eGFR Calculation mL/min/1.73m2 (Non-) (test code = 2200037971) eGFR Calculation mL/min/1.73m2 () (test code = 6625530917) ALYSSA (test code = ALYSSA) Association of [...] tests). Lab Interpretation Abnormal (test code = 56896-7) [facility] HospitalHepatic Function Panel (ALB, T.PRO, BILI T, BU/BC, ALT, AST, ALK PHOS)2020-05-24 13:54:00 Test Item Value Reference Range Interpretation Comments TOTAL BILI (test code = 7291544140) 0.9 mg/dL 0.1-1.1 BILI UNCON (test code = 3747157165) 1.0 mg/dL 0.1-1.1 BILI CONJ (test code = 1480420484) 0.0 mg/dL 0-0.3 T PROTEIN (test code = 1524807014) 7.0 g/dL 6.3-8.2 ALBUMIN (test code = 8319338267) 4.2 g/dL 3.5-5 ALK PHOS (test code = 4762307251) 49 U/L 34-122 ALTv (test code = 1742-6) 17 U/L 5-50 AST(SGOT) (test code = 3991997652) 25 U/L 13-40 Lab Interpretation (test code = Normal 03439-4) [facility]TT2020-07-09 13:32:00 Test Item Value Reference Range Interpretation Comments APTT Patient (test See_Comment [Automat ed code = 3173-2) message] The system which generated this result transmitted reference range : 23 - 38 Seconds . The reference range was not used to interpr et this result as normal/abnormal . ALYSSA (test code = ALYSSA) The [facility] patient population mean normal value for aPTT is 30 seconds. Lab Interpretation Normal (test code = 61130-5) [facility] HospitalProthrombin Time (PT) / [id number] 13:30:00 Test Item Value Reference Range Interpretation [...] tions. Lab Interpretation (test Normal code = 41018-9) [facility] WITH [id number] 13:27:00 Test Item Value Reference Range Interpretation Comments WBC (test code = See_Comment [Automated 90-2) message] The sy stem which generated this result transmitted reference range : 4.20 - 10.70 10*3/?L. The reference range was not used to interpret this result as normal/abnormal . RBC (test code = See_Comment L [Automated 139-8) message] The sy stem which generated this [...] RDW-SD (test code = 42.6 fL 38.5-51.6 88196-0) RDW-CV (test code = 12.3 % 12.1-15.4 788-0) PLT (test code = See_Comment [Automated 777-3) message] The sy stem which generated this result transmitted reference range : 150 - 328 10*3/ ?L. The reference r corey was not used to interpret this result as normal/abnormal . MPV (test code = 9.9 fL 9.8-13 83681-7) NRBC/100 WBC (test See_Comment [Automat ed code = 1928710520) message] The system which generated this result transmitted reference range : 0.0 - 10.0 /100 WBCs. The refer ence range was not u sed to interpret th is result as normal/abnormal . NRBC x10^3 (test code <0.01 See_Comment [Auto mated = [id number]) message] The s ystem which generated this result transmitted reference range : 10*3/?L. The reference range was not used to interpret this result as normal/abnormal . GRAN MAT (NEUT) % 55.1 % (test code = 770-8) IMM GRAN % (test code 0.20 % = 2651660133) LYMPH % (test code = 28.8 % 736-9) MONO % (test code = 11.3 % 5905-5) EOS % (test code = 3.5 % 713-8) BASO % (test code = 1.1 % 706-2) GRAN MAT x10^3(ANC) 3.11 10*3/uL 1.99-6.95 (test code = 1368828413) IMM GRAN x10^3 (test <0.03 0-0.06 code = 5041157251) LYMPH x10^3 (test code 1.63 10*3/uL 1.09-3.23 = 731-0) MONO x10^3 (test code 0.64 10*3/uL 0.36-1.02 = 742-7) EOS x10^3 (test code = 0.20 10*3/uL 0.06-0.53 711-2) BASO x10^3 (test code 0.06 10*3/uL 0.01-0.09 = 704-7) Lab Interpretation Abnormal (test code = 18248-9) [facility] [id number] 13:25:58HISTORY: ?Pain. FINDINGS: AP, lateral, oblique views [...] No acute fracture or dislocation in left ankle.[facility] GLUCOSE (AUTOMATED)2020-03-23 22:34:00 Test Item Value Reference Range Interpretation Comments POCT GLU (test code = 0420801294) 173 mg/dL 70-110 H Lab Interpretation (test code = Abnormal 92827-6) [facility] GLUCOSE (AUTOMATED)2020-03-23 22:34:00 Test Item Value Reference Range Interpretation Comments POCT GLU (test code = 8387937223) 173 mg/dL 70-110 H Lab Interpretation (test code = Abnormal 22759-4) [facility] GLUCOSE (AUTOMATED)2020-03-23 18:12:00 Test Item Value Reference Range Interpretation Comments POCT GLU (test code = 165 mg/dL 70-110 H Notifi ed Provider [id number]) Lab Interpretation (test Abnormal code = 96552-0) [facility] GLUCOSE (AUTOMATED)2020-03-23 18:12:00 Test Item Value Reference Range Interpretation Comments POCT GLU (test code = 165 mg/dL 70-110 H Notifi ed Provider [id number]) Lab Interpretation (test Abnormal code = 88005-7) [facility] GLUCOSE (AUTOMATED)2020-03-23 15:04:00 Test Item Value Reference Range Interpretation Comments POCT GLU (test code = 114 mg/dL 70-110 H Notifi ed Provider [id number]) Lab Interpretation (test Abnormal code = 36960-8) [facility] GLUCOSE (AUTOMATED)2020-03-23 15:04:00 Test Item Value Reference Range Interpretation Comments POCT GLU (test code = 114 mg/dL 70-110 H Notifi ed Provider [id number]) Lab Interpretation (test Abnormal code = 31099-8) [facility] [id number] 13:23:00 Test Item Value Reference Range Interpretation Comments FERRITIN (test code = 139.0 ng/mL 18-464 1957193977) ALYSSA (test code = ALYSSA) Biotin has been reported to cause a negative bias, interpret results relative to patient's use of biotin. Lab Interpretation (test Normal code = 03571-8) [facility] [id number] 13:23:00 Test Item Value Reference Range Interpretation Comments FERRITIN (test code = 139.0 ng/mL 18-464 6717308335) ALYSSA (test code = ALYSSA) Biotin has been reported to cause a negative bias, interpret results relative to patient's use of biotin. Lab Interpretation (test Normal code = 23061-9) [facility] [id number] 12:53:00 Test Item Value Reference Range Interpretation Comments IRON (test code = 3229610444) 87 ug/dL 50-160 TIBC (test code = 1421606992) 385 ug/dL 250-410 % FE SAT (test code = 3197304279) 23 % 20-50 Lab Interpretation (test code = Normal 70410-7) [facility] [id number] 12:53:00 Test Item Value Reference Range Interpretation Comments IRON (test code = 5564536779) 87 ug/dL 50-160 TIBC (test code = 9921814831) 385 ug/dL 250-410 % FE SAT (test code = 6102571188) 23 % 20-50 Lab Interpretation (test code = Normal 73462-0) [facility] 12:07:00 Test Item Value Reference Range Interpretation Comments APTT Patient (test code See_Comment [Au tomated message] = 3173-2) The system [employer] generated this result transmitted ref erence range: 26 - 36 Seconds. The reference range was not used to int erpret this result as normal/abnormal . Lab Interpretation (test Abnormal code = 16982-0) [facility] 12:07:00 Test Item Value Reference Range Interpretation Comments APTT Patient (test code See_Comment [Au tomated message] = 3173-2) The system [employer] generated this result transmitted ref erence range: 26 - 36 Seconds. The reference range was not used to int erpret this result as normal/abnormal . Lab Interpretation (test Abnormal code = 79131-0) [id number] 11:57[facility]00 Test Item Value Reference Range Interpretation Comments TROPONIN I (test 0.046 ng/mL See_Comment H [Automated code = 3028050486) message] The system which generated this result [...] ? Lab Interpretation Abnormal (test code = 77293-9) [facility] [id number] 11:57:00 Test Item Value Reference Range Interpretation Comments TROPONIN I (test 0.046 ng/mL See_Comment H [Automated code = 2281254081) message] The system which generated this result [...] ? Lab Interpretation Abnormal (test code = 35652-4) [facility] (NA, K, CL, CO2, GLUCOSE, BUN, CREATININE, CA)2020-03-23 11:52:00 Test Item Value Reference Range Interpretation Comments NA (test code = 137 mmol/L 135-145 7187687412) K (test code = 4.1 mmol/L 3.5-5 4118178665) CL (test code = 102 mmol/L 98-108 2294695506) CO2 TOTAL (test code = 26 mmol/L 23-31 7818077655) AGAP (test code = 2-16 7506169701) BUN (test code = 18 mg/dL 7-23 5624849787) GLUCOSE (test code = 119 mg/dL 70-110 H 3122890691) CREATININE (test code = 1.14 mg/dL 0.6-1.25 7260767346) CALCIUM (test code = 9.1 mg/dL 8.6-10.6 7497100394) eGFR Calculation mL/min/1.73m2 (Non-) (test code = 5418638842) eGFR Calculation mL/min/1.73m2 () (test code = 5786571682) ALYSSA (test code = ALYSSA) Association of [...] tests). Lab Interpretation Abnormal (test code = 37476-1) [facility]2020[facility] 11:52:00 Test Item Value Reference Range Interpretation Comments MAGNESIUM (test code = 5288616081) 2.2 mg/dL 1.7-2.4 Lab Interpretation (test code = Normal 42451-7) [facility] (NA, K, CL, CO2, GLUCOSE, BUN, CREATININE, CA)2020-03-23 11:52:00 Test Item Value Reference Range Interpretation Comments NA (test code = 137 mmol/L 135-145 5612487360) K (test code = 4.1 mmol/L 3.5-5 0815939433) CL (test code = 102 mmol/L 98-108 8714846740) CO2 TOTAL (test code = 26 mmol/L 23-31 9086232025) AGAP (test code = 2-16 0006361773) BUN (test code = 18 mg/dL 7-23 2146299658) GLUCOSE (test code = 119 mg/dL 70-110 H 4712959303) CREATININE (test code = 1.14 mg/dL 0.6-1.25 9789658006) CALCIUM (test code = 9.1 mg/dL 8.6-10.6 8493875997) eGFR Calculation mL/min/1.73m2 (Non-) (test code = 4628766551) eGFR Calculation mL/min/1.73m2 () (test code = 2975618977) ALYSSA (test code = ALYSSA) Association of [...] tests). Lab Interpretation Abnormal (test code = 02012-1) [facility]2020-[facility] 11:52:00 Test Item Value Reference Range Interpretation Comments MAGNESIUM (test code = 3676576019) 2.2 mg/dL 1.7-2.4 Lab Interpretation (test code = Normal 88252-5) [facility] HospitalProthrom[facility] (PT) / [id number] 11:36:00 Test Item Value Reference Range Interpretation Comments PROTIME PATIENT (test See_Comment [Auto mated message] code = 5964-2) The system [employer] generated this result transmitted ref erence range: 10.1 - 1 2.6 Seconds. The re ference range was not u sed to interpret this result as normal/abnor mal. INR (test code = 6301-6) Nor mal INR <1.1; Warfarin Therap eutic range 2.0 to 3. 0 or 2.5 to 3.5, dep ending upon the indica tions. Lab Interpretation (test Normal code = 26686-5) [facility] Hospital[facility] (PT) / [id number] 11:36:00 Test Item Value Reference Range Interpretation Comments PROTIME PATIENT (test See_Comment [Auto mated message] code = 5964-2) The system [employer] generated this result transmitted ref erence range: 10.1 - 1 2.6 Seconds. The re ference range was not u sed to interpret this result as normal/abnor mal. INR (test code = 6301-6) Nor mal INR <1.1; Warfarin Therap eutic range 2.0 to 3. 0 or 2.5 to 3.5, dep ending upon the indica tions. Lab Interpretation (test Normal code = 64654-3) [facility] [id number] 06:38:00 Test Item Value Reference Range Interpretation Comments TROPONIN I (test 0.045 ng/mL See_Comment H [Automated code = 3219345365) message] The system which generated this result [...] ? Lab Interpretation Abnormal (test code = 44472-7) [facility] [id number] 06:38:00 Test Item Value Reference Range Interpretation Comments TROPONIN I (test 0.045 ng/mL See_Comment H [Automated code = 3182069775) message] The system which generated this result [...] ? Lab Interpretation Abnormal (test code = 22949-1) [facility] (NA, K, CL, CO2, GLUCOSE, BUN, CREATININE, CA)2020-03-23 06:29:00 Test Item Value Reference Range Interpretation Comments NA (test code = 137 mmol/L 135-145 1702418133) K (test code = 3.6 mmol/L 3.5-5 5801672810) CL (test code = 101 mmol/L 98-108 1320898646) CO2 TOTAL (test code = 27 mmol/L 23-31 4533447048) AGAP (test code = 2-16 1780221888) BUN (test code = 19 mg/dL 7-23 4008217059) GLUCOSE (test code = 153 mg/dL 70-110 H 7480625746) CREATININE (test code = 1.22 mg/dL 0.6-1.25 5139783597) CALCIUM (test code = 8.9 mg/dL 8.6-10.6 3186444166) eGFR Calculation mL/min/1.73m2 (Non-) (test code = 9078464386) eGFR Calculation mL/min/1.73m2 () (test code = 4058269843) ALYSSA (test code = ALYSSA) Association of [...] tests). Lab Interpretation Abnormal (test code = 75090-2) [facility]2020-[facility]-08 06:29:00 Test Item Value Reference Range Interpretation Comments MAGNESIUM (test code = 9011217611) 1.7 mg/dL 1.7-2.4 Lab Interpretation (test code = Normal 54024-9) [facility] HospitalLIPID PANEL (46151)(TOTAL CHOLESTEROL, TRIGLYCERIDES, HDL)2020-03-23 06:29:00 Test Item Value Reference Range Interpretation Comments CHOL (test code = 106 mg/dL 120-200 L 9764823096) HDL (test code = 46 mg/dL >40 0964776598) HDLC RATIO (test code = See_Comment [Au tomated message] 9297721649) The system [employer] generated this result transmit diamante reference range : <=5.0. The refe rence range was not u sed to interpret th is result as normal/abnormal . TRIG (test code = 74 mg/dL 30-170 8394343634) LDL CHOL (test code = 45 mg/dL See_Comment [Auto mated message] 86592-8) The system [employer] generated this result transmit diamante reference range : <=160. The refe rence range was not u sed to interpret th is result as normal/abnormal . VLDL (test code = 15 mg/dL 5-60 7285667496) Lab Interpretation (test Abnormal code = 11337-8) [facility] (NA, K, CL, CO2, GLUCOSE, BUN, CREATININE, CA)2020-03-23 06:29:00 Test Item Value Reference Range Interpretation Comments NA (test code = 137 mmol/L 135-145 0058871662) K (test code = 3.6 mmol/L 3.5-5 3181360164) CL (test code = 101 mmol/L 98-108 9945209528) CO2 TOTAL (test code = 27 mmol/L 23-31 6770802610) AGAP (test code = 2-16 8749717920) BUN (test code = 19 mg/dL 7-23 5031425597) GLUCOSE (test code = 153 mg/dL 70-110 H 0990539861) CREATININE (test code = 1.22 mg/dL 0.6-1.25 9960089607) CALCIUM (test code = 8.9 mg/dL 8.6-10.6 6057612805) eGFR Calculation mL/min/1.73m2 (Non-) (test code = 2173753808) eGFR Calculation mL/min/1.73m2 () (test code = 5726322633) ALYSSA (test code = ALYSSA) Association of [...] tests). Lab Interpretation Abnormal (test code = 18741-2) [facility]2020-[facility] 06:29:00 Test Item Value Reference Range Interpretation Comments MAGNESIUM (test code = 7328257672) 1.7 mg/dL 1.7-2.4 Lab Interpretation (test code = Normal 64638-8) [facility] HospitalLIPID PANEL (84609)(TOTAL CHOLESTEROL, TRIGLYCERIDES, HDL)2020-03-23 06:29:00 Test Item Value Reference Range Interpretation Comments CHOL (test code = 106 mg/dL 120-200 L 1105790718) HDL (test code = 46 mg/dL >40 6323629614) HDLC RATIO (test code = See_Comment [Au tomated message] 4659402442) The system [employer] generated this result transmit diamante reference range : <=5.0. The refe rence range was not u sed to interpret th is result as normal/abnormal . TRIG (test code = 74 mg/dL 30-170 2743079363) LDL CHOL (test code = 45 mg/dL See_Comment [Auto mated message] 44231-7) The system [employer] generated this result transmit diamante reference range : <=160. The refe rence range was not u sed to interpret th is result as normal/abnormal . VLDL (test code = 15 mg/dL 5-60 6890364549) Lab Interpretation (test Abnormal code = 99689-5) [facility] 03:18:00 Test Item Value Reference Range Interpretation Comments APTT Patient (test code = See_Comment [ Automated message] 3173-2) The system [employer] generated this result transmitted ref erence range: 26 - 36 Seconds. The re ference range was not u sed to interpret this result as normal/abnor mal. Lab Interpretation (test Normal code = 85078-5) [facility]2020-[facility] 03:18:00 Test Item Value Reference Range Interpretation Comments APTT Patient (test code = See_Comment [ Automated message] 3173-2) The system [email or web address] h generated this result transmitted ref erence range: 26 - 36 Seconds. The re ference range was not u sed to interpret this result as normal/abnor mal. Lab Interpretation (test Normal code = 10992-9) [facility] HospitalPROTHROMBIN TIME / [id number] 03:07:00 Test Item Value Reference Range Interpretation Comments PROTIME PATIENT (test See_Comment [Auto mated message] code = 5964-2) The system [employer] ([employer]) generated this result transmitted ref erence range: 10.1 - 1 2.6 Seconds. The re ference range was not u sed to interpret this result as normal/abnor mal. INR (test code = 6301-6) Nor mal INR <1.1; Warfarin Therap eutic range 2.0 to 3. 0 or 2.5 to 3.5, dep ending upon the indica tions. Lab Interpretation (test Normal code = 47206-7) [facility] HospitalPROTHROMBIN TIME / [id number] 03:07:00 Test Item Value Reference Range Interpretation Comments PROTIME PATIENT (test See_Comment [Auto mated message] code = 5964-2) The system [employer] ([employer]) generated this result transmitted ref erence range: 10.1 - 1 2.6 Seconds. The re ference range was not u sed to interpret this result as normal/abnor mal. INR (test code = 6301-6) Nor mal INR <1.1; Warfarin Therap eutic range 2.0 to 3. 0 or 2.5 to 3.5, dep ending upon the indica tions. Lab Interpretation (test Normal code = 49884-5) [facility] 2 [id number] 02:23:32 No acute cardiopulmonary process. Preliminary Report [...] reviewed this study and agree with the abovereport.[facility] [id number] 02:23:32 No acute cardiopulmonary process. Preliminary Report [...] is seen. Noacute bony abnormalities are noted. [facility], Radiant Results Inft User - 03/22/2020 9:24 [...] reviewed this study and agree with the abovereport.[facility]IR[facility] COVID-19 [id number] 01:23:00 Test Item Value Reference Range Interpretation Comments SARS-CoV-2 (test code = Not Detected Not Detected 81108-3) ALYSSA (test code = ALYSSA) ID NOW COVID-19 Assay is an isothermal nucleic acid amplification test intended for the qualitative detection of nucleic acid from SARS-CoV-2 viral RNA in nasopharyngeal (POLLUTION CONTROL ENGINEER) specimens. It is used under Emergency Use [...] indicated. Lab Interpretation Normal (test code = 85116-7) [facility]-19 [id number] 01:23:00 Test Item Value Reference Range Interpretation Comments SARS-CoV-2 (test code = Not Detected Not Detected 99699-0) ALYSSA (test code = ALYSSA) ID NOW COVID-19 Assay is an isothermal nucleic acid amplification test intended for the qualitative detection of nucleic acid from SARS-CoV-2 viral RNA in nasopharyngeal (POLLUTION CONTROL ENGINEER) specimens. It is used under Emergency Use [...] indicated. Lab Interpretation Normal (test code = 13204-0) [facility] HospitalN-TERMINAL [id number] 00:12:00 Test Item Value Reference Range Interpretation Comments NT-proBNP (test code 585 pg/mL See_Comment H [Autom ated = 0660185867) message] The system which generated this result transmitted reference range : <=450. The reference range was not used to interpret this result as normal/abnormal . ALYSSA (test code = ALYSSA) Biotin has been reported to cause a negative bias, interpret results relative to patient's use of biotin. Lab Interpretation Abnormal (test code = 81949-2) [facility] [id number] 00:12:00 Test Item Value Reference Range Interpretation Comments TROPONIN I (test 0.030 ng/mL See_Comment [Automated code = 4561571324) message] The system which generated this result [...] ? Lab Interpretation Normal (test code = 08973-0) [facility] [id number] 00:12:00 Test Item Value Reference Range Interpretation Comments NT-proBNP (test code 585 pg/mL See_Comment H [Autom ated = 3044690697) message] The system which generated this result transmitted reference range : <=450. The reference range was not used to interpret this result as normal/abnormal . ALYSSA (test code = ALYSSA) Biotin has been reported to cause a negative bias, interpret results relative to patient's use of biotin. Lab Interpretation Abnormal (test code = 27697-1) [facility] [id number] 00:12:00 Test Item Value Reference Range Interpretation Comments TROPONIN I (test 0.030 ng/mL See_Comment [Automated code = 2959870994) message] The system which generated this result [...] ? Lab Interpretation Normal (test code = 46658-7) [facility]. METABOLIC PANEL (33250)2020-03-23 00:03:00 Test Item Value Reference Range Interpretation Comments NA (test code = 138 mmol/L 135-145 5000054504) K (test code = 4.1 mmol/L 3.5-5 2724417277) CL (test code = 103 mmol/L 98-108 0337982787) CO2 TOTAL (test code = 26 mmol/L 23-31 8932386408) AGAP (test code = 2-16 9189560514) BUN (test code = 18 mg/dL 7-23 5386072229) GLUCOSE (test code = 157 mg/dL 70-110 H 3588465862) CREATININE (test code = 1.19 mg/dL 0.6-1.25 3034366035) TOTAL BILI (test code = 1.1 mg/dL 0.1-1.9 7231003771) CALCIUM (test code = 9.2 mg/dL 8.6-10.6 1094296239) T PROTEIN (test code = 6.8 g/dL 6.3-8.2 6532093604) ALBUMIN (test code = 4.0 g/dL 3.5-5 2032681197) ALK PHOS (test code = 51 U/L 34-122 1985331078) ALTv (test code = 16 U/L 5-50 1742-6) AST(SGOT) (test code = 23 U/L 13-40 3041123776) eGFR Calculation mL/min/1.73m2 (Non-) (test code = 5849695603) eGFR Calculation mL/min/1.73m2 () (test code = 8551036700) ALYSSA (test code = ALYSSA) Association of [...] tests). Lab Interpretation Abnormal (test code = 57187-6) [facility] METABOLIC PANEL (95044)2020-03-23 00:03:00 Test Item Value Reference Range Interpretation Comments NA (test code = 138 mmol/L 135-145 3545954702) K (test code = 4.1 mmol/L 3.5-5 6770460675) CL (test code = 103 mmol/L 98-108 6077682572) CO2 TOTAL (test code = 26 mmol/L 23-31 8403335235) AGAP (test code = 2-16 6052364780) BUN (test code = 18 mg/dL 7-23 2301275108) GLUCOSE (test code = 157 mg/dL 70-110 H 1209801352) CREATININE (test code = 1.19 mg/dL 0.6-1.25 5256503617) TOTAL BILI (test code = 1.1 mg/dL 0.1-1.3 4430556040) CALCIUM (test code = 9.2 mg/dL 8.6-10.6 2192012108) T PROTEIN (test code = 6.8 g/dL 6.3-8.2 3156307209) ALBUMIN (test code = 4.0 g/dL 3.5-5 2314588872) ALK PHOS (test code = 51 U/L 34-122 4470879434) ALTv (test code = 16 U/L 5-50 1742-6) AST(SGOT) (test code = 23 U/L 13-40 4110654715) eGFR Calculation mL/min/1.73m2 (Non-) (test code = 2773615503) eGFR Calculation mL/min/1.73m2 () (test code = 1965159769) ALYSSA (test code = ALYSSA) Association of [...] tests). Lab Interpretation Abnormal (test code = 01115-9) [facility] WITH [id number] 23:57:00 Test Item Value Reference Range Interpretation [...] RDW-SD (test code = 49.6 fL 38.5-51.6 70322-3) RDW-CV (test code = 14.6 % 12.1-15.4 788-0) PLT (test code = See_Comment L [Automated 777-3) message] The sy stem which generated this result transmitted reference range : 150 - 328 10*3/ ?L. The reference r corey was not used to interpret this result as normal/abnormal . MPV (test code = 9.9 fL 9.8-13 64072-4) NRBC/100 WBC (test See_Comment [Automat ed code = 2678950887) message] The system which generated this result transmitted reference range : 0.0 - 10.0 /100 WBCs. The refer ence range was not u sed to interpret th is result as normal/abnormal . NRBC x10^3 (test code <0.01 See_Comment [Auto mated = 9061914173) message] The s ystem which generated this result transmitted reference range : 10*3/?L. The reference range was not used to interpret this result as normal/abnormal . GRAN MAT (NEUT) % 55.3 % (test code = 770-8) IMM GRAN % (test code 0.20 % = 4177777617) LYMPH % (test code = 28.3 % 736-9) MONO % (test code = 12.6 % 5905-5) EOS % (test code = 3.1 % 713-8) BASO % (test code = 0.5 % 706-2) GRAN MAT x10^3(ANC) 3.20 10*3/uL 1.99-6.95 (test code = 0988277390) IMM GRAN x10^3 (test <0.03 0-0.06 code = 2652217802) LYMPH x10^3 (test code 1.64 10*3/uL 1.09-3.23 = 731-0) MONO x10^3 (test code 0.73 10*3/uL 0.36-1.02 = 742-7) EOS x10^3 (test code = 0.18 10*3/uL 0.06-0.53 711-2) BASO x10^3 (test code 0.03 10*3/uL 0.01-0.09 = 704-7) Lab Interpretation Abnormal (test code = 69203-6) [facility] WITH [id number] 23:57:00 Test Item Value Reference Range Interpretation [...] RDW-SD (test code = 49.6 fL 38.5-51.6 80168-7) RDW-CV (test code = 14.6 % 12.1-15.4 788-0) PLT (test code = See_Comment L [Automated 777-3) message] The sy stem which generated this result transmitted reference range : 150 - 328 10*3/ ?L. The reference r corey was not used to interpret this result as normal/abnormal . MPV (test code = 9.9 fL 9.8-13 83112-0) NRBC/100 WBC (test See_Comment [Automat ed code = 9550856703) message] The system which generated this result transmitted reference range : 0.0 - 10.0 /100 WBCs. The refer ence range was not u sed to interpret th is result as normal/abnormal . NRBC x10^3 (test code <0.01 See_Comment [Auto mated = 6001762123) message] The s ystem which generated this result transmitted reference range : 10*3/?L. The reference range was not used to interpret this result as normal/abnormal . GRAN MAT (NEUT) % 55.3 % (test code = 770-8) IMM GRAN % (test code 0.20 % = 3496509822) LYMPH % (test code = 28.3 % 736-9) MONO % (test code = 12.6 % 5905-5) EOS % (test code = 3.1 % 713-8) BASO % (test code = 0.5 % 706-2) GRAN MAT x10^3(ANC) 3.20 10*3/uL 1.99-6.95 (test code = 2882075223) IMM GRAN x10^3 (test <0.03 0-0.06 code = 7675693772) LYMPH x10^3 (test code 1.64 10*3/uL 1.09-3.23 = 731-0) MONO x10^3 (test code 0.73 10*3/uL 0.36-1.02 = 742-7) EOS x10^3 (test code = 0.18 10*3/uL 0.06-0.53 711-2) BASO x10^3 (test code 0.03 10*3/uL 0.01-0.09 = 704-7) Lab Interpretation Abnormal (test code = 41491-5) [facility] [id number] 21:48:00 Test Item Value Reference Range Interpretation Comments SARS-CoV-2 (test code = Not Detected Not Detected 96229-0) ALYSSA (test code = ALYSSA) ID NOW COVID-19 Assay is an isothermal nucleic acid amplification test intended for the qualitative detection of nucleic acid from SARS-CoV-2 viral RNA in nasopharyngeal (POLLUTION CONTROL ENGINEER) specimens. It is used under Emergency Use [...] indicated. Lab Interpretation Normal (test code = 55231-2) [facility] HospitalTrop[facility] [id number] 21:44:00 Test Item Value Reference Range Interpretation Comments TROPONIN I (test 0.027 ng/mL See_Comment [Automated code = 6388618582) message] The system which generated this result [...] ? Lab Interpretation Normal (test code = 22996-0) [facility] HospitalProthrombin Time (PT) / [id number] 21:41:00 Test Item Value Reference Range Interpretation [...] tions. Lab Interpretation (test Normal code = 20041-6) [facility] HospitalN-[facility]MINAL [id number] 21:39:00 Test Item Value Reference Range Interpretation Comments NT-proBNP (test code 663 pg/mL See_Comment H [Autom ated = 2236197298) message] The system which generated this result transmitted reference range : <=450. The reference range was not used to interpret this result as normal/abnormal . ALYSSA (test code = ALYSSA) Biotin has been reported to cause a negative bias, interpret results relative to patient's use of biotin. Lab Interpretation Abnormal (test code = 87778-1) [facility] HospitalCOMP. METABOLIC PANEL (70544)2020-03-21 21:37:00 Test Item Value Reference Range Interpretation Comments NA (test code = 139 mmol/L 135-145 6354851758) K (test code = 4.1 mmol/L 3.5-5 5487216492) CL (test code = 102 mmol/L 98-108 0768596739) CO2 TOTAL (test code = 29 mmol/L 23-31 8359703203) AGAP (test code = 2-16 3885408884) BUN (test code = 18 mg/dL 7-23 0231815867) GLUCOSE (test code = 277 mg/dL 70-110 H 4991754119) CREATININE (test code = 1.23 mg/dL 0.6-1.25 4157916920) TOTAL BILI (test code = 1.3 mg/dL 0.1-1.1 H 1156871717) CALCIUM (test code = 9.8 mg/dL 8.6-10.6 0465608778) T PROTEIN (test code = 7.0 g/dL 6.3-8.2 8396239270) ALBUMIN (test code = 4.2 g/dL 3.5-5 6583979269) ALK PHOS (test code = 50 U/L 34-122 0146454549) ALTv (test code = 15 U/L 5-50 1742-6) AST(SGOT) (test code = 22 U/L 13-40 7236807600) eGFR Calculation mL/min/1.73m2 (Non-) (test code = 8623207645) eGFR Calculation mL/min/1.73m2 () (test code = 2262886142) ALYSSA (test code = ALYSSA) Association of [...] tests). Lab Interpretation Abnormal (test code = 27352-5) [facility] HospitalLipase [id number] 21:37:00 Test Item Value Reference Range Interpretation Comments LIPASE (test code = 9447562369) 161 U/L 0-220 Lab Interpretation (test code = Normal 41300-2) [facility] 1 [id number] 20:46:31HISTORY: Chest pain. TECHNIQUE: Portable AP view [...] noted. Mild thoracolumbar scoliosis noted.CONCLUSIONS: Mild cardiomegaly. [facility] HospitalLamaic Acid Whole [id number] 20:43:00 Test Item Value Reference Range Interpretation Comments LACTIC ACID (test code = 1.91 mmol/L 0.3-2.6 5114038925) [facility] GLUCOSE (AUTOMATED)2020-03-07 20:58:00 Test Item Value Reference Range Interpretation Comments POCT GLU (test code = 2364630148) 216 mg/dL 70-110 H Lab Interpretation (test code = Abnormal 87262-2) [facility] GLUCOSE (AUTOMATED)2020-03-07 16:00:00 Test Item Value Reference Range Interpretation Comments POCT GLU (test code = 3772708449) 168 mg/dL 70-110 H Lab Interpretation (test code = Abnormal 71201-9) [facility] GLUCOSE (AUTOMATED)2020-03-07 13:07:00 Test Item Value Reference Range Interpretation Comments POCT GLU (test code = 8973712339) 148 mg/dL 70-110 H Lab Interpretation (test code = Abnormal 34209-3) [facility] HospitalTROPONIN [id number] 11:27:00 Test Item Value Reference Range Interpretation Comments TROPONIN I (test 0.051 ng/mL See_Comment H [Automated code = 0293613928) message] The system which generated this result [...] ? Lab Interpretation Abnormal (test code = 51977-7) [facility] HospitalN-[facility]MINAL [id number] 11:24:00 Test Item Value Reference Range Interpretation Comments NT-proBNP (test code 336 pg/mL See_Comment [Autom ated = 7332117972) message] The system which generated this result transmitted reference range : <=450. The reference range was not used to interpret this result as normal/abnormal . ALYSSA (test code = ALYSSA) Biotin has been reported to cause a negative bias, interpret results relative to patient's use of biotin. Lab Interpretation Normal (test code = 49562-5) [facility]Bas[facility] Met[facility] (NA, K, CL, CO2, GLUCOSE, BUN, CREATININE, CA)2020-03-07 11:14:00 Test Item Value Reference Range Interpretation Comments NA (test code = 138 mmol/L 135-145 1234598899) K (test code = 3.8 mmol/L 3.5-5 9562287498) CL (test code = 97 mmol/L 98-108 L 5070530720) CO2 TOTAL (test code = 30 mmol/L 23-31 7820481963) AGAP (test code = 2-16 8432623833) BUN (test code = 36 mg/dL 7-23 H 6718124090) GLUCOSE (test code = 140 mg/dL 70-110 H 4480420206) CREATININE (test code = 1.50 mg/dL 0.6-1.25 H 7841379006) CALCIUM (test code = 10.0 mg/dL 8.6-10.6 7413976627) eGFR Calculation mL/min/1.73m2 (Non-) (test code = 6742142940) eGFR Calculation mL/min/1.73m2 () (test code = 1314946014) ALYSSA (test code = ALYSSA) Association of [...] tests). Lab Interpretation Abnormal (test code = 68875-4) [facility] HospitalURIC [id number] 11:14:00 Test Item Value Reference Range Interpretation Comments URIC ACID (test code = 4610083780) 5.4 mg/dL 3.6-8 Lab Interpretation (test code = Normal 55629-4) [facility] WITH [id number] 10:53:00 Test Item Value Reference Range Interpretation Comments WBC (test code = See_Comment [Automated 1190-2) message] The sy stem which generated this result transmitted reference range : 4.20 - 10.70 10*3/?L. The reference range was not used to interpret this result as normal/abnormal . RBC (test code = See_Comment L [Automated 359-8) message] The sy stem which generated this [...] RDW-SD (test code = 45.1 fL 38.5-51.6 56424-0) RDW-CV (test code = 14.2 % 12.1-15.4 788-0) PLT (test code = See_Comment [Automated 777-3) message] The sy stem which generated this result transmitted reference range : 150 - 328 10*3/ ?L. The reference r corey was not used to interpret this result as normal/abnormal . MPV (test code = 9.8 fL 9.8-13 40643-4) NRBC/100 WBC (test See_Comment [Automat ed code = 7242292388) message] The system which generated this result transmitted reference range : 0.0 - 10.0 /100 WBCs. The refer ence range was not u sed to interpret th is result as normal/abnormal . NRBC x10^3 (test code <0.01 See_Comment [Auto mated = 8934276002) message] The s ystem which generated this result transmitted reference range : 10*3/?L. The reference range was not used to interpret this result as normal/abnormal . GRAN MAT (NEUT) % 51.0 % (test code = 770-8) IMM GRAN % (test code 0.50 % = 9000188780) LYMPH % (test code = 32.0 % 736-9) MONO % (test code = 11.3 % 5905-5) EOS % (test code = 4.3 % 713-8) BASO % (test code = 0.9 % 706-2) GRAN MAT x10^3(ANC) 2.85 10*3/uL 1.99-6.95 (test code = 6363678412) IMM GRAN x10^3 (test 0.03 10*3/uL 0-0.06 code = 4415181548) LYMPH x10^3 (test code 1.79 10*3/uL 1.09-3.23 = 731-0) MONO x10^3 (test code 0.63 10*3/uL 0.36-1.02 = 742-7) EOS x10^3 (test code = 0.24 10*3/uL 0.06-0.53 711-2) BASO x10^3 (test code 0.05 10*3/uL 0.01-0.09 = 704-7) Lab Interpretation Abnormal (test code = 96193-1) [facility] GLUCOSE (AUTOMATED)2020-03-06 22:46:00 Test Item Value Reference Range Interpretation Comments POCT GLU (test code = 2225571990) 209 mg/dL 70-110 H Lab Interpretation (test code = Abnormal 47935-1) [facility] GLUCOSE (AUTOMATED)2020-03-06 16:23:00 Test Item Value Reference Range Interpretation Comments POCT GLU (test code = 2331463251) 254 mg/dL 70-110 H Lab Interpretation (test code = Abnormal 16138-8) [facility] GLUCOSE (AUTOMATED)2020-03-06 12:51:00 Test Item Value Reference Range Interpretation Comments POCT GLU (test code = 1440838200) 126 mg/dL 70-110 H Lab Interpretation (test code = Abnormal 50831-9) [facility] HospitalTROPONIN [id number] 10:16:00 Test Item Value Reference Range Interpretation Comments TROPONIN I (test 0.056 ng/mL See_Comment H [Automated code = 4949153183) message] The system which generated this result [...] ? Lab Interpretation Abnormal (test code = 78670-7) [facility] (NA, K, CL, CO2, GLUCOSE, BUN, CREATININE, CA)2020-03-06 10:13:00 Test Item Value Reference Range Interpretation Comments NA (test code = 136 mmol/L 135-145 7606482877) K (test code = 4.1 mmol/L 3.5-5 5691191816) CL (test code = 95 mmol/L 98-108 L 2659121182) CO2 TOTAL (test code = 30 mmol/L 23-31 0561047983) AGAP (test code = 2-16 0855654525) BUN (test code = 35 mg/dL 7-23 H 6166475241) GLUCOSE (test code = 174 mg/dL 70-110 H 3788673036) CREATININE (test code = 1.67 mg/dL 0.6-1.25 H 5888780616) CALCIUM (test code = 9.7 mg/dL 8.6-10.6 9073824520) eGFR Calculation mL/min/1.73m2 (Non-) (test code = 4312447770) eGFR Calculation mL/min/1.73m2 () (test code = 1298842499) ALYSSA (test code = ALYSSA) Association of [...] tests). Lab Interpretation Abnormal (test code = 64406-8) [facility] WITH [id number] 09:16:00 Test Item Value Reference Range Interpretation [...] RDW-SD (test code = 45.6 fL 38.5-51.6 90378-5) RDW-CV (test code = 14.3 % 12.1-15.4 788-0) PLT (test code = See_Comment [Automated 777-3) message] The sy stem which generated this result transmitted reference range : 150 - 328 10*3/ ?L. The reference r corey was not used to interpret this result as normal/abnormal . MPV (test code = 9.8 fL 9.8-13 07740-8) NRBC/100 WBC (test See_Comment [Automat ed code = 5677581999) message] The system which generated this result transmitted reference range : 0.0 - 10.0 /100 WBCs. The refer ence range was not u sed to interpret th is result as normal/abnormal . NRBC x10^3 (test code <0.01 See_Comment [Auto mated = 8172000895) message] The s ystem which generated this result transmitted reference range : 10*3/?L. The reference range was not used to interpret this result as normal/abnormal . GRAN MAT (NEUT) % 56.1 % (test code = 770-8) IMM GRAN % (test code 0.10 % = 5021906724) LYMPH % (test code = 29.7 % 736-9) MONO % (test code = 9.6 % 5905-5) EOS % (test code = 3.8 % 713-8) BASO % (test code = 0.7 % 706-2) GRAN MAT x10^3(ANC) 3.79 10*3/uL 1.99-6.95 (test code = 1673256010) IMM GRAN x10^3 (test <0.03 0-0.06 code = 4746783969) LYMPH x10^3 (test code 2.01 10*3/uL 1.09-3.23 = 731-0) MONO x10^3 (test code 0.65 10*3/uL 0.36-1.02 = 742-7) EOS x10^3 (test code = 0.26 10*3/uL 0.06-0.53 711-2) BASO x10^3 (test code 0.05 10*3/uL 0.01-0.09 = 704-7) Lab Interpretation Abnormal (test code = 14246-3) [facility] GLUCOSE (AUTOMATED)2020-03-06 01:25:00 Test Item Value Reference Range Interpretation Comments POCT GLU (test code = 3217344924) 208 mg/dL 70-110 H Lab Interpretation (test code = Abnormal 57956-2) [facility] HospitalTRTATUMNIN [id number] 00:08:00 Test Item Value Reference Range Interpretation Comments TROPONIN I (test 0.047 ng/mL See_Comment H [Automated code = 0849113143) message] The system which generated this result [...] ? Lab Interpretation Abnormal (test code = 29285-3) [facility] GLUCOSE (AUTOMATED)2020-03-05 21:19:00 Test Item Value Reference Range Interpretation Comments POCT GLU (test code = 9380232578) 234 mg/dL 70-110 H Lab Interpretation (test code = Abnormal 42827-6) [facility] GLUCOSE (AUTOMATED)2020-03-05 16:55:00 Test Item Value Reference Range Interpretation Comments POCT GLU (test code = 1777941016) 258 mg/dL 70-110 H Lab Interpretation (test code = Abnormal 59604-3) [facility] GLUCOSE (AUTOMATED)2020-03-05 12:59:00 Test Item Value Reference Range Interpretation Comments POCT GLU (test code = 6725024253) 194 mg/dL 70-110 H Lab Interpretation (test code = Abnormal 19906-6) [facility] HospitalTROPONIN [id number] 10:54:00 Test Item Value Reference Range Interpretation Comments TROPONIN I (test 0.071 ng/mL See_Comment H [Automated code = 2366118669) message] The system which generated this result [...] ? Lab Interpretation Abnormal (test code = 61148-4) [facility] HospitalBasic Metabolic Panel (NA, K, CL, CO2, GLUCOSE, BUN, CREATININE, CA)2020-03-05 10:43:00 Test Item Value Reference Range Interpretation Comments NA (test code = 139 mmol/L 135-145 2372719290) K (test code = 4.1 mmol/L 3.5-5 9928087166) CL (test code = 101 mmol/L 98-108 5350338200) CO2 TOTAL (test code = 27 mmol/L 23-31 4833121062) AGAP (test code = 2-16 9889173451) BUN (test code = 25 mg/dL 7-23 H 4520440199) GLUCOSE (test code = 243 mg/dL 70-110 H 7151800990) CREATININE (test code = 1.22 mg/dL 0.6-1.25 9634022313) CALCIUM (test code = 9.8 mg/dL 8.6-10.6 7988389574) eGFR Calculation mL/min/1.73m2 (Non-) (test code = 1916677420) eGFR Calculation mL/min/1.73m2 () (test code = 9965808252) ALYSSA (test code = ALYSSA) Association of [...] tests). Lab Interpretation Abnormal (test code = 82365-1) [facility] WITH [id number] 10:23:00 Test Item Value Reference Range Interpretation Comments WBC (test code = See_Comment [Automated message] 6690-2) The system [employer] generated this result transmitted ref erence range: 4.20 - 1 0.70 10*3/?L. The re ference range was not u sed to interpret this result as normal/abnor mal. RBC (test code = See_Comment [Automated message] 639-8) The system [employer] generated this result transmitted ref erence range: [...] RDW-SD (test code 47.8 fL 38.5-51.6 = 21846-1) RDW-CV (test code 14.4 % 12.1-15.4 = 788-0) PLT (test code = See_Comment [Automated message] 837-3) The system [employer] generated this result transmitted ref erence range: 150 - 32 8 10*3/?L. The re ference range was not u sed to interpret this result as normal/abnor mal. MPV (test code = 9.8 fL 9.8-13 78657-9) NRBC/100 WBC (test See_Comment [Automat ed message] code = 2952663139) The syste [employer] which generated this result transmitted ref erence range: 0.0 - 10 .0 /100 WBCs. The refer ence range was not u sed to interpret this result as normal/abnor mal. NRBC x10^3 (test <0.01 See_Comment [Automated message] code = 9752010992) The syste m which generated this result transmitted ref erence range: 10*3/?L. The reference range was not used to interpr et this result as normal/abnormal . GRAN MAT (NEUT) % 48.8 % (test code = 931-8) IMM GRAN % (test 0.20 % code = 5639790850) LYMPH % (test code 34.7 % = 736-9) MONO % (test code 10.8 % = 5905-5) EOS % (test code = 4.9 % 713-8) BASO % (test code 0.6 % = 706-2) GRAN MAT 2.49 10*3/uL 1.99-6.95 x10^3(ANC) (test code = 3545360537) IMM GRAN x10^3 <0.03 0-0.06 (test code = 4083964517) LYMPH x10^3 (test 1.77 10*3/uL 1.09-3.23 code = 731-0) MONO x10^3 (test 0.55 10*3/uL 0.36-1.02 code = 742-7) EOS x10^3 (test 0.25 10*3/uL 0.06-0.53 code = 711-2) BASO x10^3 (test 0.03 10*3/uL 0.01-0.09 code = 704-7) [facility] HospitalXR [facility] 1 [id number] 03:06:08 No acute cardiopulmonary process. Unchanged enlargement [...] terminating over themid to lower thoracic spine. Himb, Radiant Results Inft User - 03/04/2020 10:07 [...] reviewed this study and agree with the abovereport.[facility] CORONAVIRUS COVID-19 [id number] 00:34:00 Test Item Value Reference Range Interpretation Comments SARS-CoV-2 (test code = Not Detected Not Detected 33063-0) ALYSSA (test code = ALYSSA) ID NOW COVID-19 Assay is an isothermal nucleic acid amplification test intended for the qualitative detection of nucleic acid from SARS-CoV-2 viral RNA in nasopharyngeal ([employer]ER) specimens. It is used under Emergency Use [...] indicated. Lab Interpretation Normal (test code = 33857-9) [facility] HospitalTroponin [id number] 00:08:00 Test Item Value Reference Range Interpretation Comments TROPONIN I (test 0.056 ng/mL See_Comment H [Automated code = 6989055242) message] The system which generated this result [...] ? Lab Interpretation Abnormal (test code = 28596-8) [facility] HospitalN-TERMINAL [id number] 00:04:00 Test Item Value Reference Range Interpretation Comments NT-proBNP (test code 562 pg/mL See_Comment H [Autom ated = 1033171690) message] The system which generated this result transmitted reference range : <=450. The reference range was not used to interpret this result as normal/abnormal . ALYSSA (test code = ALYSSA) Biotin has been reported to cause a negative bias, interpret results relative to patient's use of biotin. Lab Interpretation Abnormal (test code = 07631-9) [facility] HospitalProthrombin Time (PT) / [id number] 23:57:00 Test Item Value Reference Range Interpretation [...] tions. Lab Interpretation (test Normal code = 55576-7) [facility] HospitalBasi Metabolic Panel (NA, K, CL, CO2, GLUCOSE, BUN, CREATININE, CA)2020-03-04 23:56:00 Test Item Value Reference Range Interpretation Comments NA (test code = 139 mmol/L 135-145 3023845326) K (test code = 4.1 mmol/L 3.5-5 9538622423) CL (test code = 102 mmol/L 98-108 5741062966) CO2 TOTAL (test code = 29 mmol/L 23-31 9138325056) AGAP (test code = 2-16 1165654801) BUN (test code = 23 mg/dL 7-23 4700002757) GLUCOSE (test code = 193 mg/dL 70-110 H 9641422128) CREATININE (test code = 1.25 mg/dL 0.6-1.25 3500918194) CALCIUM (test code = 9.7 mg/dL 8.6-10.6 5003534937) eGFR Calculation mL/min/1.73m2 (Non-) (test code = 5384212017) eGFR Calculation mL/min/1.73m2 () (test code = 8988203371) ALYSSA (test code = ALYSSA) Association of [...] tests). Lab Interpretation Abnormal (test code = 56281-6) [facility] HospitalHepatic Function Panel (ALB, T.PRO, BILI T, BU/BC, ALT, AST, ALK PHOS)2020-03-04 23:56:00 Test Item Value Reference Range Interpretation Comments TOTAL BILI (test code = 3125098126) 1.1 mg/dL 0.1-1.1 BILI UNCON (test code = 6387596489) 1.1 mg/dL 0.1-1.1 BILI CONJ (test code = 1448151768) 0.0 mg/dL 0-0.3 T PROTEIN (test code = 4244864988) 7.1 g/dL 6.3-8.2 ALBUMIN (test code = 3983258862) 4.1 g/dL 3.5-5 ALK PHOS (test code = 9715908663) 61 U/L 34-122 ALTv (test code = 1742-6) 16 U/L 5-50 AST(SGOT) (test code = 3660880130) 23 U/L 13-40 Lab Interpretation (test code = Normal 65484-0) [facility] HospitalLipase [id number] 23:56:00 Test Item Value Reference Range Interpretation Comments LIPASE (test code = 5234355831) 149 U/L 0-220 Lab Interpretation (test code = Normal 71309-9) [facility] HospitalaPTT2020-04-19 23:56:00 Test Item Value Reference Range Interpretation Comments APTT Patient (test See_Comment [Automat ed code = 3173-2) message] The system which generated this result transmitted reference range : 23 - 38 Seconds . The reference range was not used to interpr et this result as normal/abnormal . ALYSSA (test code = ALYSSA) The [facility] patient population mean normal value for aPTT is 30 seconds. Lab Interpretation Normal (test code = 74033-9) [facility] HospitalCBC WITH [id number] 23:46:00 Test Item Value Reference Range Interpretation [...] RDW-SD (test code = 48.3 fL 38.5-51.6 74844-6) RDW-CV (test code = 14.7 % 12.1-15.4 788-0) PLT (test code = See_Comment [Automated 777-3) message] The sy stem which generated this result transmitted reference range : 150 - 328 10*3/ ?L. The reference r corey was not used to interpret this result as normal/abnormal . MPV (test code = 9.8 fL 9.8-13 11164-3) NRBC/100 WBC (test See_Comment [Automat ed code = 6339544603) message] The system which generated this result transmitted reference range : 0.0 - 10.0 /100 WBCs. The refer ence range was not u sed to interpret th is result as normal/abnormal . NRBC x10^3 (test code <0.01 See_Comment [Auto mated = 8274327385) message] The s ystem which generated this result transmitted reference range : 10*3/?L. The reference range was not used to interpret this result as normal/abnormal . GRAN MAT (NEUT) % 60.1 % (test code = 770-8) IMM GRAN % (test code 0.20 % = 9672307967) LYMPH % (test code = 26.4 % 736-9) MONO % (test code = 9.9 % 5905-5) EOS % (test code = 2.8 % 713-8) BASO % (test code = 0.6 % 706-2) GRAN MAT x10^3(ANC) 3.17 10*3/uL 1.99-6.95 (test code = 0224139360) IMM GRAN x10^3 (test <0.03 0-0.06 code = 8698458178) LYMPH x10^3 (test code 1.39 10*3/uL 1.09-3.23 = 731-0) MONO x10^3 (test code 0.52 10*3/uL 0.36-1.02 = 742-7) EOS x10^3 (test code = 0.15 10*3/uL 0.06-0.53 711-2) BASO x10^3 (test code 0.03 10*3/uL 0.01-0.09 = 704-7) Lab Interpretation Abnormal (test code = 05247-1) [facility] GLUCOSE (AUTOMATED)2020-03-02 16:04:00 Test Item Value Reference Range Interpretation Comments POCT GLU (test code = 9032565018) 214 mg/dL 70-110 H Lab Interpretation (test code = Abnormal 25825-9) [facility] GLUCOSE (AUTOMATED)2020-03-02 16:04:00 Test Item Value Reference Range Interpretation Comments POCT GLU (test code = 9097343945) 271 mg/dL 70-110 H Lab Interpretation (test code = Abnormal 88880-3) [facility] HospitalN-[facility]MINAL [id number] 09:43:00 Test Item Value Reference Range Interpretation Comments NT-proBNP (test code 1670 pg/mL See_Comment H [Autom ated = 6224800279) message] The system which generated this result transmitted reference range : <=450. The reference range was not used to interpret this result as normal/abnormal . ALYSSA (test code = ALYSSA) Biotin has been reported to cause a negative bias, interpret results relative to patient's use of biotin. Lab Interpretation Abnormal (test code = 27009-7) [facility] (NA, K, CL, CO2, GLUCOSE, BUN, CREATININE, CA)2020-03-02 09:33:00 Test Item Value Reference Range Interpretation Comments NA (test code = 143 mmol/L 135-145 0911916679) K (test code = 3.8 mmol/L 3.5-5 0632127564) CL (test code = 105 mmol/L 98-108 7097943727) CO2 TOTAL (test code = 28 mmol/L 23-31 1861040532) AGAP (test code = 2-16 8291507347) BUN (test code = 19 mg/dL 7-23 3673973664) GLUCOSE (test code = 152 mg/dL 70-110 H 4712432035) CREATININE (test code = 1.18 mg/dL 0.6-1.25 8021329182) CALCIUM (test code = 9.0 mg/dL 8.6-10.6 3616982540) eGFR Calculation mL/min/1.73m2 (Non-) (test code = 6466899900) eGFR Calculation mL/min/1.73m2 () (test code = 6969105663) ALYSSA (test code = ALYSSA) Association of [...] tests). Lab Interpretation Abnormal (test code = 56849-7) [facility]00 Test Item Value Reference Range Interpretation Comments MAGNESIUM (test code = 4390458152) 1.8 mg/dL 1.7-2.4 Lab Interpretation (test code = Normal 76767-9) [facility] HospitalPO[facility] GLU[facility]SE (AUTOMATED)2020-03-01 20:42:00 Test Item Value Reference Range Interpretation Comments POCT GLU (test code = 3843865753) 231 mg/dL 70-110 H Lab Interpretation (test code = Abnormal 36794-6) [facility] HospitalVITAMIN B12, [id number] 11:51:00 Test Item Value Reference Range Interpretation Comments VIT B12 (test code = 325 pg/mL 240-930 3075236921) ALYSSA (test code = ALYSSA) Biotin has been reported to cause a positive bias, interpret results relative to patient's use of biotin. Lab Interpretation (test Normal code = 90277-0) [facility] HospitalFOLATE2020-04-16 11:49:00 Test Item Value Reference Range Interpretation Comments FOLATE SER (test code = >20.0 3-20 H Slig ht hemolysis 3825847588) Lab Interpretation (test Abnormal code = 21202-3) [facility] HospitalPROCALCITONIN2020-04-16 10:49:00 Test Item Value Reference Range Interpretation Comments Procalcitonin (test 3.05 ng/mL <0.07 H code = 6199843078) ALYSSA (test code = ALYSSA) INTERPRETATION OF [...] lung abscess/empyema. For further information please refer to:[email or web address] Lab Interpretation Abnormal (test code = 23652-3) [facility] HospitalWENDY [id number] 09:58:00 Test Item Value Reference Range Interpretation Comments TROPONIN I (test 0.093 ng/mL See_Comment H [Automated code = 1625796184) message] The system which generated this result [...] ? Lab Interpretation Abnormal (test code = 53100-8) [facility] HospitalN-[facility]AL [id number] 09:55:00 Test Item Value Reference Range Interpretation Comments NT-proBNP (test code 4450 pg/mL See_Comment H [Autom ated = 1992287752) message] The system which generated this result transmitted reference range : <=450. The reference range was not used to interpret this result as normal/abnormal . ALYSSA (test code = ALYSSA) Biotin has been reported to cause a negative bias, interpret results relative to patient's use of biotin. Lab Interpretation Abnormal (test code = 75753-4) [facility] (NA, K, CL, CO2, GLUCOSE, BUN, CREATININE, CA)2020-03-01 09:50:00 Test Item Value Reference Range Interpretation Comments NA (test code = 141 mmol/L 135-145 8538183135) K (test code = 3.5 mmol/L 3.5-5 9926507468) CL (test code = 105 mmol/L 98-108 0274686768) CO2 TOTAL (test code = 26 mmol/L 23-31 1776600953) AGAP (test code = 2-16 1851916957) BUN (test code = 13 mg/dL 7-23 2321824821) GLUCOSE (test code = 219 mg/dL 70-110 H 1479090858) CREATININE (test code = 1.01 mg/dL 0.6-1.25 6886364658) CALCIUM (test code = 8.7 mg/dL 8.6-10.6 7060195057) eGFR Calculation mL/min/1.73m2 (Non-) (test code = 9951549410) eGFR Calculation mL/min/1.73m2 () (test code = 4855417169) ALYSSA (test code = ALYSSA) Association of [...] tests). Lab Interpretation Abnormal (test code = 24270-2) [facility] HospitalMagnesium [id number] 09:50:00 Test Item Value Reference Range Interpretation Comments MAGNESIUM (test code = 7783909734) 1.9 mg/dL 1.7-2.4 Lab Interpretation (test code = Normal 46845-2) [facility] WITH [id number] 09:22:00 Test Item Value Reference Range Interpretation [...] RDW-SD (test code = 47.8 fL 38.5-51.6 47563-8) RDW-CV (test code = 14.8 % 12.1-15.4 788-0) PLT (test code = See_Comment L [Automated 777-3) message] The sy stem which generated this result transmitted reference range : 150 - 328 10*3/ ?L. The reference r corey was not used to interpret this result as normal/abnormal . MPV (test code = 9.9 fL 9.8-13 44699-8) NRBC/100 WBC (test See_Comment [Automat ed code = 2558264844) message] The system which generated this result transmitted reference range : 0.0 - 10.0 /100 WBCs. The refer ence range was not u sed to interpret th is result as normal/abnormal . NRBC x10^3 (test code <0.01 See_Comment [Auto mated = 7055271956) message] The s ystem which generated this result transmitted reference range : 10*3/?L. The reference range was not used to interpret this result as normal/abnormal . GRAN MAT (NEUT) % 66.0 % (test code = 770-8) IMM GRAN % (test code 0.30 % = 6349688313) LYMPH % (test code = 20.8 % 736-9) MONO % (test code = 9.5 % 5905-5) EOS % (test code = 2.8 % 713-8) BASO % (test code = 0.6 % 706-2) GRAN MAT x10^3(ANC) 4.44 10*3/uL 1.99-6.95 (test code = 7405828299) IMM GRAN x10^3 (test <0.03 0-0.06 code = 9523367263) LYMPH x10^3 (test code 1.40 10*3/uL 1.09-3.23 = 731-0) MONO x10^3 (test code 0.64 10*3/uL 0.36-1.02 = 742-7) EOS x10^3 (test code = 0.19 10*3/uL 0.06-0.53 711-2) BASO x10^3 (test code 0.04 10*3/uL 0.01-0.09 = 704-7) Lab Interpretation Abnormal (test code = 97467-6) [facility] HospitalGLYCOSYLATED HEMOGLOBIN (A1C)2020-03-01 06:49:00 Test Item Value Reference Interpretation Comments Range HGB A1C (test code = See_Comment H [Autom ated 9468-4) message] The system which generated this result transmitted reference range : 4.0 - 6.0 % NGSP. The reference range was not used to interpret this result as normal/abnormal . ALYSSA (test code = %A1C (NGSP) ALYSSA) Interpretation (ADA)4.8-5.6 ? ? Normal or (Non-Diabetic Range)5.7-6.4 ? ? Increased Risk (Pre-Diabetic)>6.5 ?Diabetes Indicated Lab Interpretation Abnormal (test code = 37689-2) [facility] HospitalURIC [id number] 06:25:00 Test Item Value Reference Range Interpretation Comments URIC ACID (test code = 7397523291) 2.3 mg/dL 3.6-8 L Lab Interpretation (test code = Abnormal 11660-7) [facility] HospitalSEDIMENTATION [id number] 05:25:00 Test Item Value Reference Range Interpretation Comments ESR (test code = See_Comment H [Automated message] 8602004139) The system [employer] generated this result transmitted ref erence range: 0 - 10 m m/HR. The reference r corey was not used to interpret this result as normal/abnor mal. Lab Interpretation (test Abnormal code = 45577-9) [facility] HospitalN-TERMINAL [id number] 04:07:00 Test Item Value Reference Range Interpretation Comments NT-proBNP (test code 4080 pg/mL See_Comment H [Autom ated = 3665426135) message] The system which generated this result transmitted reference range : <=450. The reference range was not used to interpret this result as normal/abnormal . ALYSSA (test code = ALYSSA) Biotin has been reported to cause a negative bias, interpret results relative to patient's use of biotin. Lab Interpretation Abnormal (test code = 29285-7) [facility] HospitalPO[facility]UCOSE (AUTOMATED)2020-03-01 03:42:00 Test Item Value Reference Range Interpretation Comments POCT GLU (test code = 4762195612) 190 mg/dL 70-110 H Lab Interpretation (test code = Abnormal 37298-6) [facility] HospitalTROPONIN [id number] 03:30:00 Test Item Value Reference Range Interpretation Comments TROPONIN I (test 0.098 ng/mL See_Comment H [Automated code = 6594647563) message] The system which generated this result [...] ? Lab Interpretation Abnormal (test code = 01896-7) [facility] HospitalHEPATIC FUNCTION PANEL (35204) (ALB,T.PRO,BILI T,BU/BC,ALT,AST,ALK PHOS)2020-03-01 03:24:00 Test Item Value Reference Range Interpretation Comments TOTAL BILI (test code = 8749970307) 2.2 mg/dL 0.1-1.1 H BILI UNCON (test code = 8448151970) 2.0 mg/dL 0.1-1.1 H BILI CONJ (test code = 5251241000) 0.0 mg/dL 0-0.3 T PROTEIN (test code = 7470541636) 6.7 g/dL 6.3-8.2 ALBUMIN (test code = 4319823507) 4.0 g/dL 3.5-5 ALK PHOS (test code = 5208717569) 48 U/L 34-122 ALTv (test code = 1742-6) 18 U/L 5-50 AST(SGOT) (test code = 3314115413) 57 U/L 13-40 H Lab Interpretation (test code = Abnormal 69970-2) [facility] HospitalPhosphorus [id number] 03:17:00 Test Item Value Reference Range Interpretation Comments PHOSPHORUS (test code = 3.1 mg/dL 2.5-5 Slig ht hemolysis 3538063048) Lab Interpretation (test Normal code = 05043-8) [facility] HospitalPROTHROMBIN TIME / [id number] 03:08:00 Test Item Value Reference Range Interpretation Comments PROTIME PATIENT (test See_Comment [Auto mated message] code = 5964-2) The system [employer] generated this result transmitted ref erence range: 12.0 - 1 4.7 Seconds. The re ference range was not u sed to interpret this result as normal/abnor mal. INR (test code = 6301-6) Nor mal INR <1.1; Warfarin Therap eutic range 2.0 to 3. 0 or 2.5 to 3.5, dep ending upon the indica tions. Lab Interpretation (test Normal code = 96688-2) [facility] HospitalCREATINE [id number] 03:01:00 Test Item Value Reference Range Interpretation Comments CK (test code = 9880211596) 68 U/L 33-194 Lab Interpretation (test code = Normal 78242-0) [facility] HospitalURIC [id number] 02:41:00 Test Item Value Reference Range Interpretation Comments URIC ACID (test code = 0510551260) 2.3 mg/dL 3.6-8 L Lab Interpretation (test code = Abnormal 11123-9) [facility] HospitalTHYROID STIMULATING [id number] 02:26:00 Test Item Value Reference Range Interpretation Comments TSH (test code = See_Comment [Automated message] 2818752788) The system [employer] generated this result transmitted ref erence range: 0.45 - 4 .70 mIU/L. The refe rence range was not u sed to interpret this result as normal/abnor mal. Lab Interpretation (test Normal code = 15508-3) [facility] HospitalN-TERMINAL [id number] 02:04:00 Test Item Value Reference Range Interpretation Comments NT-proBNP (test code 4390 pg/mL See_Comment H [Autom ated = 9721535466) message] The system which generated this result transmitted reference range : <=450. The reference range was not used to interpret this result as normal/abnormal . ALYSSA (test code = ALYSSA) Biotin has been reported to cause a negative bias, interpret results relative to patient's use of biotin. Lab Interpretation Abnormal (test code = 75252-0) [facility] HospitalMAGNESIUM2020-04-16 02:01:00 Test Item Value Reference Range Interpretation Comments MAGNESIUM (test code = 4742378757) 1.5 mg/dL 1.7-2.4 L Lab Interpretation (test code = Abnormal 82430-7) [facility] HospitalLIPASE2020-04-16 00:22:00 Test Item Value Reference Range Interpretation Comments LIPASE (test code = 7191500044) 68 U/L 0-220 Lab Interpretation (test code = Normal 75783-2) [facility] HospitalCORONAVIRUS COVID-19 [id number] 23:42:00 Test Item Value Reference Range Interpretation Comments SARS-CoV-2 (test code = Not Detected Not Detected 34636-3) ALYSSA (test code = ALYSSA) ID NOW COVID-19 Assay is an isothermal nucleic acid amplification test intended for the qualitative detection of nucleic acid from SARS-CoV-2 viral RNA in nasopharyngeal ([employer]LLUTION [employer]INEER) specimens. It is used under Emergency Use [...] indicated. Lab Interpretation Normal (test code = 69889-6) [facility] HospitalXR CHEST 1 VW [id number] 23:26:02 No acute intrathoracic abnormality, specifically no radiographic findingsto suggest COVID-19 pneumonia. Disclaimer: Generally, the findings on chest imaging in COVID-19 are notspecific, and overlap with other infections, including influenza, H1N1,SARS and MERS. According to the Centers for Disease Control (CDC) and recent statement ofthe [employer], viral testing remains the [...] stimulating device overlie the mid thoracic spine. [facility], Radiant ResultsInft User - 02/29/2020 6:27 PM [...] Disease Control (CDC) and recent statement ofthe [employer], viral testing remains the only specificmethod of diagnosis. Confirmation with the viral test is required, even ifradiologic findings are suggestive of COVID-[address]. Preliminary Report Dictated by Resident: Radu Boo MD., have reviewed this study and agree with theabovereport.[facility] HospitalWendy [id number] 22:59:00 Test Item Value Reference Range Interpretation Comments TROPONIN I (test 0.071 ng/mL See_Comment H [Automated code = 6439942773) message] The system which generated this result [...] ? Lab Interpretation Abnormal (test code = 48406-8) [facility] HospitalBas[facility] [place] Met[facility] (NA, K, CL, CO2, GLUCOSE, BUN, CREATININE, CA)2020-02-29 22:48:00 Test Item Value Reference Range Interpretation Comments NA (test code = 141 mmol/L 135-145 3837026721) K (test code = 3.2 mmol/L 3.5-5 L 4897819174) CL (test code = 104 mmol/L 98-108 3970425472) CO2 TOTAL (test code = 25 mmol/L 23-31 4967392774) AGAP (test code = 2-16 4273106583) BUN (test code = 12 mg/dL 7-23 2407865925) GLUCOSE (test code = 250 mg/dL 70-110 H 6348109062) CREATININE (test code = 1.02 mg/dL 0.6-1.25 4712851894) CALCIUM (test code = 8.9 mg/dL 8.6-10.6 9812486821) eGFR Calculation mL/min/1.73m2 (Non-) (test code = 5773230224) eGFR Calculation mL/min/1.73m2 () (test code = 2389825455) ALYSSA (test code = ALYSSA) Association of [...] tests). Lab Interpretation Abnormal (test code = 52661-5) [facility] WITH [id number] 22:41:00 Test Item Value Reference Range Interpretation Comments WBC (test code = See_Comment [Automated 2690-2) message] The sy stem which generated this result transmitted reference range : 4.20 - 10.70 10*3/?L. The reference range was not used to interpret this result as normal/abnormal . RBC (test code = See_Comment L [Automated 129-8) message] The sy stem which generated this [...] RDW-SD (test code = 46.6 fL 38.5-51.6 16695-0) RDW-CV (test code = 14.6 % 12.1-15.4 788-0) PLT (test code = See_Comment [Automated 777-3) message] The sy stem which generated this result transmitted reference range : 150 - 328 10*3/ ?L. The reference r corey was not used to interpret this result as normal/abnormal . MPV (test code = 9.7 fL 9.8-13 L 57746-2) NRBC/100 WBC (test See_Comment [Automat ed code = 0083358068) message] The system which generated this result transmitted reference range : 0.0 - 10.0 /100 WBCs. The refer ence range was not u sed to interpret th is result as normal/abnormal . NRBC x10^3 (test code <0.01 See_Comment [Auto mated = 4176194002) message] The s ystem which generated this result transmitted reference range : 10*3/?L. The reference range was not used to interpret this result as normal/abnormal . GRAN MAT (NEUT) % 68.6 % (test code = 770-8) IMM GRAN % (test code 0.30 % = 9472468032) LYMPH % (test code = 18.6 % 736-9) MONO % (test code = 10.1 % 5905-5) EOS % (test code = 1.8 % 713-8) BASO % (test code = 0.6 % 706-2) GRAN MAT x10^3(ANC) 4.29 10*3/uL 1.99-6.95 (test code = 1338696022) IMM GRAN x10^3 (test <0.03 0-0.06 code = 7967173452) LYMPH x10^3 (test code 1.16 10*3/uL 1.09-3.23 = 731-0) MONO x10^3 (test code 0.63 10*3/uL 0.36-1.02 = 742-7) EOS x10^3 (test code = 0.11 10*3/uL 0.06-0.53 711-2) BASO x10^3 (test code 0.04 10*3/uL 0.01-0.09 = 704-7) Lab Interpretation Abnormal (test code = 47820-5) [facility] Acid Whole [id number] 22:38:00 Test Item Value Reference Range Interpretation Comments LACTIC ACID (test code = 1.88 mmol/L 0.3-2.6 5362831278) [facility] HospitalPOOR GLUCOSE (AUTOMATED)2020-01-17 18:18:00 Test Item Value Reference Range Interpretation Comments POCT GLU (test code = 9066276433) 290 mg/dL 70-110 H Lab Interpretation (test code = Abnormal 34226-3) [facility] HospitalTROPONIN [id number] 18:01:00 Test Item Value Reference Range Interpretation Comments TROPONIN I (test 0.065 ng/mL See_Comment H [Automated code = 9353743146) message] The system which generated this result [...] ? Lab Interpretation Abnormal (test code = 42614-2) [facility] HospitalaPTT2020-03-03 17:10:00 Test Item Value Reference Range Interpretation Comments APTT Patient (test See_Comment H [Automat ed code = 3173-2) message] The system which generated this result transmitted reference range : 23 - 38 Seconds . The reference range was not used to interpr et this result as normal/abnormal . ALYSSA (test code = ALYSSA) The [facility] patient population mean normal value for aPTT is 30 seconds. Lab Interpretation Abnormal (test code = 28218-0) [facility] HospitalPOCT GLUCOSE (AUTOMATED)2020-01-17 11:59:00 Test Item Value Reference Range Interpretation Comments POCT GLU (test code = 4515753031) 185 mg/dL 70-110 H Lab Interpretation (test code = Abnormal 96434-9) [facility] HospitalTROPONIN [id number] 11:23:00 Test Item Value Reference Range Interpretation Comments TROPONIN I (test 0.073 ng/mL See_Comment H [Automated code = 6125994439) message] The system which generated this result [...] ? Lab Interpretation Abnormal (test code = 38613-5) [facility] [place] Met[facility] (NA, K, CL, CO2, GLUCOSE, BUN, CREATININE, CA)2020-01-17 11:16:00 Test Item Value Reference Range Interpretation Comments NA (test code = 136 mmol/L 135-145 4850395647) K (test code = 3.3 mmol/L 3.5-5 L 3177763174) CL (test code = 101 mmol/L 98-108 7188825161) CO2 TOTAL (test code = 26 mmol/L 23-31 5502454012) AGAP (test code = 2-16 7545870278) BUN (test code = 19 mg/dL 7-23 0546952483) GLUCOSE (test code = 227 mg/dL 70-110 H 3837445485) CREATININE (test code = 1.33 mg/dL 0.6-1.25 H 3187081370) CALCIUM (test code = 9.1 mg/dL 8.6-10.6 2997252923) eGFR Calculation mL/min/1.73m2 (Non-) (test code = 0935062371) eGFR Calculation mL/min/1.73m2 () (test code = 9016920842) ALYSSA (test code = ALYSSA) Association of [...] tests). Lab Interpretation Abnormal (test code = 46632-0) [facility] HospitalaPTT2020-03-03 11:00:00 Test Item Value Reference Range Interpretation Comments APTT Patient (test See_Comment H [Automat ed code = 3173-2) message] The system which generated this result transmitted reference range : 23 - 38 Seconds . The reference range was not used to interpr et this result as normal/abnormal . ALYSSA (test code = ALYSSA) The [facility] patient population mean normal value for aPTT is 30 seconds. Lab Interpretation Abnormal (test code = 50884-8) [facility] HospitalCBC WITH [id number] 10:43:00 Test Item Value Reference Range Interpretation Comments WBC (test code = See_Comment [Automated message] 6690-2) The system [employer] generated this result transmitted ref erence range: 4.20 - 1 0.70 10*3/?L. The re ference range was not u sed to interpret this result as normal/abnor mal. RBC (test code = See_Comment [Automated message] 259-8) The system [employer] generated this result transmitted ref erence range: [...] RDW-SD (test code 41.5 fL 38.5-51.6 = 63048-9) RDW-CV (test code 12.8 % 12.1-15.4 = 788-0) PLT (test code = See_Comment [Automated message] 017-3) The system [employer] generated this result transmitted ref erence range: 150 - 32 8 10*3/?L. The re ference range was not u sed to interpret this result as normal/abnor mal. MPV (test code = 10.7 fL 9.8-13 43717-3) NRBC/100 WBC (test See_Comment [Automat ed message] code = 1232876129) The syste m which generated this result transmitted ref erence range: 0.0 - 10 .0 /100 WBCs. The refer ence range was not u sed to interpret this result as normal/abnor mal. NRBC x10^3 (test <0.01 See_Comment [Automated message] code = 7068975610) The syste m which generated this result transmitted ref erence range: 10*3/?L. The reference range was not used to interpr et this result as normal/abnormal . GRAN MAT (NEUT) % 56.1 % (test code = 770-8) IMM GRAN % (test 0.30 % code = 2277159682) LYMPH % (test code 29.5 % = 736-9) MONO % (test code 9.9 % = 5905-5) EOS % (test code = 3.3 % 713-8) BASO % (test code 0.9 % = 706-2) GRAN MAT 3.73 10*3/uL 1.99-6.95 x10^3(ANC) (test code = 7386285161) IMM GRAN x10^3 <0.03 0-0.06 (test code = 9261597509) LYMPH x10^3 (test 1.96 10*3/uL 1.09-3.23 code = 731-0) MONO x10^3 (test 0.66 10*3/uL 0.36-1.02 code = 742-7) EOS x10^3 (test 0.22 10*3/uL 0.06-0.53 code = 711-2) BASO x10^3 (test 0.06 10*3/uL 0.01-0.09 code = 704-7) [facility] GLUCOSE (AUTOMATED)2020-01-17 01:49:00 Test Item Value Reference Range Interpretation Comments POCT GLU (test code = 0485327341) 305 mg/dL 70-110 H Lab Interpretation (test code = Abnormal 17670-9) [facility] GLUCOSE (AUTOMATED)2020-01-17 00:01:00 Test Item Value Reference Range Interpretation Comments POCT GLU (test code = 4056962991) 271 mg/dL 70-110 H Lab Interpretation (test code = Abnormal 60965-9) [facility] HospitalaPTT2020-03-02 22:23:00 Test Item Value Reference Range Interpretation Comments APTT Patient (test See_Comment H [Automat ed code = 3173-2) message] The system which generated this result transmitted reference range : 23 - 38 Seconds . The reference range was not used to interpr et this result as normal/abnormal . ALYSSA (test code = ALYSSA) The [facility] patient population mean normal value for aPTT is 30 seconds. Lab Interpretation Abnormal (test code = 16050-2) [facility] HospitalTROPONIN [id number] 21:22:00 Test Item Value Reference Range Interpretation Comments TROPONIN I (test 0.061 ng/mL See_Comment H [Automated code = 6676414702) message] The system which generated this result [...] ? Lab Interpretation Abnormal (test code = 11429-2) [facility] GLUCOSE (AUTOMATED)2020-01-16 17:37:00 Test Item Value Reference Range Interpretation Comments POCT GLU (test code = 1787876593) 271 mg/dL 70-110 H Lab Interpretation (test code = Abnormal 75015-9) [facility] HospitalaPTT2020-03-02 12:47:00 Test Item Value Reference Range Interpretation Comments APTT Patient (test See_Comment HH [Automat ed code = 3173-2) message] The system which generated this result transmitted reference range : 23 - 38 Seconds . The reference range was not used to interpr et this result as normal/abnormal . ALYSSA (test code = ALYSSA) The [facility] patient population mean normal value for aPTT is 30 seconds. Lab Interpretation Abnormal (test code = 52784-7) [facility] HospitalTROPONIN [id number] 12:35:00 Test Item Value Reference Range Interpretation Comments TROPONIN I (test 0.074 ng/mL See_Comment H [Automated code = 2822594714) message] The system which generated this result [...] ? Lab Interpretation Abnormal (test code = 44710-5) [facility] HospitalLIPID PANEL (19428)(TOTAL CHOLESTEROL, TRIGLYCERIDES, HDL)2020-01-16 12:23:00 Test Item Value Reference Range Interpretation Comments CHOL (test code = 95 mg/dL 120-200 L 4773472394) HDL (test code = 44 mg/dL >40 8785709604) HDLC RATIO (test code = See_Comment [Au tomated message] 1460918465) The system [employer] generated this result transmitted ref erence range: <=5.0. T he reference range was not used to int erpret this result as normal/abnormal . TRIG (test code = 89 mg/dL 30-170 7859036951) LDL CHOL (test code = 33 mg/dL See_Comment [Auto mated message] 12064-1) The system [employer] generated this result transmitted ref erence range: <=160. T he reference range was not used to int erpret this result as normal/abnormal . VLDL (test code = 18 mg/dL 5-60 8190844452) Lab Interpretation (test Abnormal code = 57081-2) [facility] HospitalGlycosylated Hemoglobin (A1C)2020-01-16 09:03:00 Test Item Value [...] Indicated Lab Interpretation Abnormal (test code = 09056-1) [facility] HospitalCritical [id number] 05:48:18Charanjit Heck MD ? ? 01/15/2020 11:48 [...] review of old charts and examination of patientUnMem[facility] HospitalProthrombin Time (PT) / [id number] 05:28:00 Test Item Value Reference Range Interpretation [...] tions. Lab Interpretation (test Normal code = 11446-2) [facility] HospitalaPTT2020-03-02 05:27:00 Test Item Value Reference Range Interpretation Comments APTT Patient (test See_Comment [Automat ed code = 3173-2) message] The system which generated this result transmitted reference range : 23 - 38 Seconds . The reference range was not used to interpr et this result as normal/abnormal . ALYSSA (test code = ALYSSA) The [facility] patient population mean normal value for aPTT is 30 seconds. Lab Interpretation Normal (test code = 19957-3) [facility] HospitalTroponin [id number] 05:11:00 Test Item Value Reference Range Interpretation Comments TROPONIN I (test 0.075 ng/mL See_Comment H [Automated code = 5939417700) message] The system which generated this result [...] ? Lab Interpretation Abnormal (test code = 04306-5) [facility] HospitalN-TERMINAL [id number] 05:08:00 Test Item Value Reference Range Interpretation Comments NT-proBNP (test code 896 pg/mL See_Comment H [Autom ated = 3501345840) message] The system which generated this result transmitted reference range : <=450. The reference range was not used to interpret this result as normal/abnormal . ALYSSA (test code = ALYSSA) Biotin has been reported to cause a negative bias, interpret results relative to patient's use of biotin. Lab Interpretation Abnormal (test code = 93550-0) [facility] HospitalBasi Metabolic Panel (NA, K, CL, CO2, GLUCOSE, BUN, CREATININE, CA)2020-01-16 04:59:00 Test Item Value Reference Range Interpretation Comments NA (test code = 136 mmol/L 135-145 0338723328) K (test code = 4.0 mmol/L 3.5-5 4891505201) CL (test code = 101 mmol/L 98-108 2741808180) CO2 TOTAL (test code = 27 mmol/L 23-31 9419072910) AGAP (test code = 2-16 2781487937) BUN (test code = 17 mg/dL 7-23 1009773501) GLUCOSE (test code = 445 mg/dL 70-110 H 7672975825) CREATININE (test code = 1.29 mg/dL 0.6-1.25 H 0386572902) CALCIUM (test code = 8.8 mg/dL 8.6-10.6 2162623238) eGFR Calculation mL/min/1.73m2 (Non-) (test code = 7621487129) eGFR Calculation mL/min/1.73m2 () (test code = 3641266873) ALYSSA (test code = ALYSSA) Association of [...] tests). Lab Interpretation Abnormal (test code = 69056-8) [facility] HospitalHepatic Function Panel (ALB, T.PRO, BILI T, BU/BC, ALT, AST, ALK PHOS)2020-01-16 04:59:00 Test Item Value Reference Range Interpretation Comments TOTAL BILI (test code = 8195895824) 1.3 mg/dL 0.1-1.1 H BILI UNCON (test code = 0156884396) 1.1 mg/dL 0.1-1.1 BILI CONJ (test code = 2496696504) 0.0 mg/dL 0-0.3 T PROTEIN (test code = 2003251682) 6.3 g/dL 6.3-8.2 ALBUMIN (test code = 1474301932) 3.9 g/dL 3.5-5 ALK PHOS (test code = 0674187743) 67 U/L 34-122 ALTv (test code = 1742-6) 15 U/L 5-50 AST(SGOT) (test code = 0984361775) 23 U/L 13-40 Lab Interpretation (test code = Abnormal 52796-2) [facility] 1 [id number] 04:54:13Impression: Moderate cardiomegaly without acute pulmonary process. RL: 460 AFC: [id number] Indication: Chest pain Comparison: None available Findings: Single AP view of the chest. The cardiopericardial silhouette ismoderately enlarged. The lungs are clear bilaterally. The visualized bonythorax is intact. A thoracic neurostimulator device is in place. [facility], Radiant Results Inft User - 01/15/2020 10:55 PM CSTIndication: Chest painComparison: None availableFindings: Single AP view of the chest. The cardiopericardial silhouette ismoderately enlarged. The lungs are clear bilaterally. The visualized bonythorax is intact. A thoracic neurostimulator device is in place.IMPRESSIONImpression:Moderate cardiomegaly without acute pulmonary process.RL: [id number]: [id number] signed by Esperanza Rosado MD, PhD at 01/15/2020 10:54 PMUnSt[facility] WITH [id number] 04:51:00 Test Item Value Reference Range Interpretation Comments WBC (test code = See_Comment [Automated 1090-2) message] The sy stem which generated this result transmitted reference range : 4.20 - 10.70 10*3/?L. The reference range was not used to interpret this result as normal/abnormal . RBC (test code = See_Comment L [Automated 539-8) message] The sy stem which generated this [...] RDW-SD (test code = 40.7 fL 38.5-51.6 40935-4) RDW-CV (test code = 12.8 % 12.1-15.4 788-0) PLT (test code = See_Comment L [Automated 777-3) message] The sy stem which generated this result transmitted reference range : 150 - 328 10*3/ ?L. The reference r corey was not used to interpret this result as normal/abnormal . MPV (test code = 10.6 fL 9.8-13 86025-4) IPF % (test code = 2.8 % 1.2-10.7 Platelet count [id number]) measured by fluorescence method. NRBC/100 WBC (test See_Comment [Automat ed code = 1104692571) message] The system which generated this result transmitted reference range : 0.0 - 10.0 /100 WBCs. The refer ence range was not u sed to interpret th is result as normal/abnormal . NRBC x10^3 (test code <0.01 See_Comment [Auto mated = 1765713994) message] The s ystem which generated this result transmitted reference range : 10*3/?L. The reference range was not used to interpret this result as normal/abnormal . GRAN MAT (NEUT) % 56.0 % (test code = 770-8) IMM GRAN % (test code 0.20 % = 9320910375) LYMPH % (test code = 30.5 % 736-9) MONO % (test code = 9.6 % 5905-5) EOS % (test code = 2.8 % 713-8) BASO % (test code = 0.9 % 706-2) GRAN MAT x10^3(ANC) 2.98 10*3/uL 1.99-6.95 (test code = 2608886842) IMM GRAN x10^3 (test <0.03 0-0.06 code = 4300793309) LYMPH x10^3 (test code 1.62 10*3/uL 1.09-3.23 = 731-0) MONO x10^3 (test code 0.51 10*3/uL 0.36-1.02 = 742-7) EOS x10^3 (test code = 0.15 10*3/uL 0.06-0.53 711-2) BASO x10^3 (test code 0.05 10*3/uL 0.01-0.09 = 704-7) Lab Interpretation Abnormal (test code = 56815-2) [facility]"
[2022-04-07] MEDS ORDERED: MORPHINE 2 MG/ML SYR ONE ×2 (03:48→04:52)
[2022-04-07] MEDS ORDERED: dexAMETHasone 10 MG/ML VIAL ONE (03:48)
[2022-04-07] MEDS ORDERED: ONDANSETRON 4 MG/2 ML VIAL ONE (03:49)
[2022-04-07] MEDS ORDERED: NA CHLORIDE 0.9% 500 ML ONE (03:49)
[2022-04-07] MEDS ORDERED: KETOROLAC 30 MG/ML INJ ONE (03:49)
[2022-04-07 04:17] LABS: Absolute Lymphocytes (CBC) 1.6 K/uL (0.7-4.9); Hematocrit 38.7 % (39.6-49.0); MPV 8.6 fL (7.6-11.3); RBC Red Blood Cell Count 4.11 M/uL (4.33-5.43)
[2022-04-07 04:28] LABS: Albumin 3.1 g/dL (3.4-5.0); Bilirubin Total 0.9 mg/dL (0.2-1.0); Potassium 3.8 mmol/L (3.5-5.1); Protein, Total 6.6 g/dL (6.4-8.2)
--- NOTE | 2022-04-07 04:44 | ER ---
Nurse's Notes [facility] Name: Demetrius Sarmiento Age: 81 yrs Sex: Male : 1940 Arrival Date: 04/07/2022 Time: 01:49 Bed 7 Private MD: Diagnosis: Sciatica, left side;Acute kidney failure, unspecified-on chronic Presentation: 04/07 02:30 Chief complaint: Patient states: Left Hip pain radiating to left knee x 2 months, that lp1 continues to worsen. Denies any trauma. 02:30 Method Of Arrival: EMS lp1 02:30 Acuity: LANCE 4 lp1 03:53 Coronavirus screen: Vaccine status: Patient reports receiving the 2nd dose of the covid kd3 vaccine. Ebola Screen: No symptoms or risks identified at this time. Initial Sepsis Screen: Does the patient meet any 2 criteria? No. Patient's initial sepsis screen is negative. Does the patient have a suspected source of infection? No. Patient's initial sepsis screen is negative. Risk Assessment: Do you want to hurt yourself or someone else? Patient reports no desire to harm self or others. Onset of symptoms was April 07, 2022. Triage Assessment: 02:31 General: Appears uncomfortable, Behavior is calm, cooperative. Pain: Complains of pain lp1 in left iliac crest and left hip Pain radiates to lateral aspect of left thigh Pain currently is 10 out of 10 on a pain scale. - Immunization history:: Adult Immunizations up to date. - Social history:: Smoking status: unknown. Screenin:52 Abuse screen: Denies threats or abuse. Denies injuries from another. Nutritional kd3 screening: No deficits noted. Tuberculosis screening: No symptoms or risk factors identified. Fall Risk IV access (20 points). Assessment: 03:52 General: Appears uncomfortable, Behavior is calm, cooperative. Neuro: Level of kd3 Consciousness is awake, alert, obeys commands, Oriented to person, place, time, situation. Cardiovascular: Patient's skin is warm and dry. Respiratory: Airway is patent Trachea midline Respiratory effort is even, unlabored, Respiratory pattern is regular, symmetrical. GI: No signs and/or symptoms were reported involving the gastrointestinal system. : No signs and/or symptoms were reported regarding the genitourinary system. EENT: No signs and/or symptoms were reported regarding the EENT system. 04:50 Reassessment: No changes from previously documented assessment. Patient and/or family kd3 updated on plan of care and expected duration. Pain level reassessed. Patient is alert, oriented x 3, equal unlabored respirations, skin warm/dry/pink. Vital Signs: 02:30 BP 114 / 90; Pulse 112; Resp 16; Temp 97.5; Pulse Ox 100% ; Weight 77.11 kg; Height 5 lp1 ft. 7 in. (170.18 cm); Pain 10/10; 04:50 BP 131 / 78; Pulse 96; Resp 17; Pulse Ox 100% ; kd3 06:43 BP 135 / 81; Pulse 96; Resp 16; Pulse Ox 100% on R/A; kd3 02:30 Body Mass Index 26.63 (77.11 kg, 170.18 cm) lp1 ED Course: 01:49 Patient arrived in ED. kz 02:31 Triage completed. lp1 02:38 Michael Ortega MD is Attending Physician. tadeo 02:46 Sg Mann RN is Primary Nurse. as6 03:35 Lumbar Spine (3 Views) XRAY In Process Unspecified. EDMS 03:35 Hip Left 2 View XRAY In Process Unspecified. EDMS 03:35 Knee Left 3 View XRAY In Process Unspecified. EDMS 03:53 Arm band placed on right wrist. kd3 03:53 Patient has correct armband on for positive identification. kd3 03:53 No provider procedures requiring assistance completed. Inserted saline lock: 20 gauge kd3 in right antecubital area, using aseptic technique. Blood collected. 04:42 Bryson Pathak MD is Referral Physician. tadeo 06:44 IV discontinued, intact, bleeding controlled, No redness/swelling at site. Pressure kd3 dressing applied. Administered Medications: 03:51 Drug: Ketorolac 30 mg Route: IVP; Site: right antecubital; kd3 04:51 Follow up: Response: No adverse reaction kd3 03:51 Drug: Zofran (Ondansetron) 4 mg Route: IVP; Site: right antecubital; kd3 04:51 Follow up: Response: No adverse reaction kd3 03:51 Drug: Decadron - Dexamethasone 10 mg Route: IVP; Site: right antecubital; kd3 04:51 Follow up: Response: No adverse reaction kd3 03:51 Drug: morphine 2 mg Route: IVP; Site: right antecubital; kd3 04:51 Follow up: Response: No adverse reaction kd3 03:52 Drug: NS 0.9% 500 ml Route: IV; Rate: bolus; Site: right antecubital; kd3 04:51 Follow up: Response: No adverse reaction; IV Status: Completed infusion kd3 04:57 Drug: morphine 2 mg Route: IVP; Site: right antecubital; as6 06:42 Follow up: Response: No adverse reaction; Pain is decreased kd3 04:57 Drug: Mucomyst - Acetylcysteine 600 mg Route: PO; as6 06:42 Follow up: Response: No adverse reaction kd3 06:42 Follow up: Response: No adverse reaction kd3 04:57 Drug: NS 0.9% 1000 ml Route: IV; Rate: 1 bolus; Site: right antecubital; as6 06:42 Follow up: Response: No adverse reaction; IV Status: Completed infusion kd3 Medication: 03:53 VIS not applicable for this client. kd3 Outcome: 04:43 Discharge ordered by . tadeo 06:44 Discharged to home via wheelchair. kd3 06:44 Condition: stable 06:44 Discharge instructions given to patient, Instructed on discharge instructions, follow up and referral plans. medication usage, Demonstrated understanding of instructions, follow-up care, medications, Prescriptions given X 2. 06:44 Patient left the ED. kd3 Signatures: Dispatcher [employer] EDAR Michael Ortega MD MD cha Pena, Laura RN RN lp1 Sg Mann RN RN as6 Priya Hernandez RN RN kd3 Yohana Orellana Corrections: (The following items were deleted from the chart) 02:32 02:31 PMHx: CHF; lp1 lp1 02:32 02:31 PMHx: chronic kidney disease; lp1 lp1 02:32 02:31 PMHx: Hypertension; lp1 lp1 02:32 02:31 PMHx: Diabetes - IDDM; lp1 lp1 02:32 02:31 PMHx: High Cholesterol; lp1 lp1 02:32 02:31 PMHx: CAD; lp1 lp1 02:32 02:31 PMHx: Myocardial infarction; lp1 lp1 02: PMHx: cardiac arrest; lp1 lp1 02: PMHx: Chronic pain; lp1 lp1 02: PMHx: angina pectoris; lp1 lp1 02: PSHx: 4 heart stents; lp1 lp1
--- NOTE | 2022-04-07 04:44 | EDPHYS ---
Physician Documentation [facility] Name: Demetrius Sarmiento Age: 81 yrs Sex: Male : 1940 Arrival Date: 04/07/2022 Time: 01:49 Bed 7 Private MD: ED Physician Michael Ortega HPI: 04/07 04:36 This 81 yrs old Male presents to ER via EMS with complaints of Hip Pain. tadeo 04:36 The patient or guardian reports decreased range of motion. that occurred at an unknown [facility] site. - Immunization history:: Adult Immunizations up to date. - Social history:: Smoking status: unknown. ROS: 04:37 Constitutional: Negative for fever, chills, and weight loss, Eyes: Negative for injury, tadeo pain, redness, and discharge, ENT: Negative for injury, pain, and discharge, Neck: Negative for injury, pain, and swelling, Cardiovascular: Negative for chest pain, palpitations, and edema, Respiratory: Negative for shortness of breath, cough, wheezing, and pleuritic chest pain, Abdomen/GI: Negative for abdominal pain, nausea, vomiting, diarrhea, and constipation, : Negative for injury, bleeding, discharge, and swelling, Skin: Negative for injury, rash, and discoloration, Neuro: Negative for headache, weakness, numbness, tingling, and seizure, Psych: Negative for depression, anxiety, suicide ideation, homicidal ideation, and hallucinations, Allergy/Immunology: Negative for hives, rash, and allergies, Endocrine: Negative for neck swelling, polydipsia, polyuria, polyphagia, and marked weight changes, Hematologic/Lymphatic: Negative for swollen nodes, abnormal bleeding, and unusual bruising. 04:37 Back: Positive for injury or acute deformity, decreased range of motion, pain at rest, pain with movement. 04:37 MS/extremity: Positive for decreased range of motion, pain, of the left hip and left inner thigh. Exam: 04:38 Constitutional: This is a well developed, well nourished patient who is awake, alert, tadeo and in no acute distress. Head/Face: Normocephalic, atraumatic. Eyes: Pupils equal round and reactive to light, extra-ocular motions intact. Lids and lashes normal. Conjunctiva and sclera are non-icteric and not injected. Cornea within normal limits. Periorbital areas with no swelling, redness, or edema. ENT: Nares patent. No nasal discharge, no septal abnormalities noted. Tympanic membranes are normal and external auditory canals are clear. Oropharynx with no redness, swelling, or masses, exudates, or evidence of obstruction, uvula midline. Mucous membranes moist. Neck: Trachea midline, no thyromegaly or masses palpated, and no cervical lymphadenopathy. Supple, full range of motion without nuchal rigidity, or vertebral point tenderness. No Meningismus. Chest/axilla: Normal chest wall appearance and motion. Nontender with no deformity. No lesions are appreciated. Cardiovascular: Regular rate and rhythm with a normal S1 and S2. No gallops, murmurs, or rubs. Normal PMI, no JVD. No pulse deficits. Respiratory: Lungs have equal breath sounds bilaterally, clear to auscultation and percussion. No rales, rhonchi or wheezes noted. No increased work of breathing, no retractions or nasal flaring. Abdomen/GI: Soft, non-tender, with normal bowel sounds. No distension or tympany. No guarding or rebound. No evidence of tenderness throughout. Male : Normal genitalia with no discharge or lesions. MS/ Extremity: Pulses equal, no cyanosis. Neurovascular intact. Full, normal range of motion. Neuro: Awake and alert, GCS 15, oriented to person, place, time, and situation. Cranial nerves II-XII grossly intact. Motor strength 5/5 in all extremities. Sensory grossly intact. Cerebellar exam normal. Normal gait. Psych: Awake, alert, with orientation to person, place and time. Behavior, mood, and affect are within normal limits. 04:38 Back: pain, that is mild, ROM is painful, normal spinal alignment noted, CVA tenderness, is absent, muscle spasm, is not present. Vital Signs: 02:30 BP 114 / 90; Pulse 112; Resp 16; Temp 97.5; Pulse Ox 100% ; Weight 77.11 kg; Height 5 lp1 ft. 7 in. (170.18 cm); Pain 10/10; 04:50 BP 131 / 78; Pulse 96; Resp 17; Pulse Ox 100% ; kd3 06:43 BP 135 / 81; Pulse 96; Resp 16; Pulse Ox 100% on R/A; kd3 02:30 Body Mass Index 26.63 (77.11 kg, 170.18 cm) lp1 MDM: 02:38 Patient medically screened. [facility] 04:38 Differential diagnosis: bursitis, arthritis, strain. Data reviewed: vital signs, nurses [facility] notes, lab test result(s), radiologic studies, CT scan, plain films, ultrasound. Data interpreted: court liaison: not applicable for this patient encounter. rate is 112 beats/min, rhythm is regular, Pulse oximetry: on room air. Test interpretation: by ED physician or midlevel provider: plain radiologic studies. Counseling: I had a detailed discussion with the patient and/or guardian regarding: the historical points, exam findings, and any diagnostic results supporting the discharge/admit diagnosis, lab results, radiology results, the need for outpatient follow up, for definitive care, a family practitioner, an finance mgr. 04/07 02:41 Order name: CBC with Diff; Complete Time: 04:32 [facility] 04/07 02:41 Order name: Comprehensive Metabolic Panel; Complete Time: 04:32 [facility] 04/07 02:41 Order name: Lumbar Spine (3 Views) XRAY [facility] 04/07 02:41 Order name: Hip Left 2 View XRAY [facility] 04/07 02:41 Order name: Knee Left 3 View XRAY [facility] 04/07 04:47 Order name: Misc. Order: ua please; Complete Time: 06:42 [facility] Administered Medications: 03:51 Drug: Ketorolac 30 mg Route: IVP; Site: right antecubital; kd3 04:51 Follow up: Response: No adverse reaction kd3 03:51 Drug: Zofran (Ondansetron) 4 mg Route: IVP; Site: right antecubital; kd3 04:51 Follow up: Response: No adverse reaction kd3 03:51 Drug: Decadron - Dexamethasone 10 mg Route: IVP; Site: right antecubital; kd3 04:51 Follow up: Response: No adverse reaction kd3 03:51 Drug: morphine 2 mg Route: IVP; Site: right antecubital; kd3 04:51 Follow up: Response: No adverse reaction kd3 03:52 Drug: NS 0.9% 500 ml Route: IV; Rate: bolus; Site: right antecubital; kd3 04:51 Follow up: Response: No adverse reaction; IV Status: Completed infusion kd3 04:57 Drug: morphine 2 mg Route: IVP; Site: right antecubital; as6 06:42 Follow up: Response: No adverse reaction; Pain is decreased kd3 04:57 Drug: Mucomyst - Acetylcysteine 600 mg Route: PO; as 06:42 Follow up: Response: No adverse reaction kd3 06:42 Follow up: Response: No adverse reaction kd3 04:57 Drug: NS 0.9% 1000 ml Route: IV; Rate: 1 bolus; Site: right antecubital; as6 06:42 Follow up: Response: No adverse reaction; IV Status: Completed infusion kd3 Disposition Summary: 04/07/22 04:43 Discharge Ordered Location: Home tadeo Problem: new tadeo Symptoms: have improved tadeo Condition: Stable tadeo Diagnosis - Sciatica, left side tadeo - Acute kidney failure, unspecified - on chronic tadeo Followup: tadeo - With: Private Physician - When: 2 - 3 days - Reason: Recheck today's complaints, Continuance of care, Re-evaluation by your physician Followup: tadeo - With: Bryson Pathak MD - When: 2 - 3 days - Reason: Recheck today's complaints, Re-evaluation by your physician Discharge Instructions: - Discharge Summary Sheet tadeo - Sciatica tadeo - Acute Kidney Injury, Adult tadeo - Sciatica, Nuau-jr-Tyms tadeo - Back Exercises, Gdca-zb-Okix tadeo - Chronic Kidney Disease, Adult, Rmgq-or-Raju tadeo - Radicular Pain tadeo Forms: - Medication Reconciliation Form tadeo - Thank You Letter tadeo - Antibiotic Education tadeo - Prescription Opioid Use tadeo Prescriptions: - dexamethasone 2 mg Oral tablet - take 1 tablet by ORAL route 2 times per day; 10 tablet; Refills: 0, Product tadeo Selection Permitted - Tylenol-Codeine #3 300 mg-30 mg Oral - take 2 tablet by ORAL route every 6 hours; 20 tablet; Refills: 0, Product tadeo Selection Permitted Signatures: Dispatcher [employer] Michael Black MD MD cha Pena, Laura, RN RN lp1 Sg Mann RN RN as6 Priya Hernandez RN RN kd3 Corrections: (The following items were deleted from the chart) 02:32 02:31 PMHx: CHF; lp1 lp1 02:32 02:31 PMHx: chronic kidney disease; lp1 lp1 02:32 02:31 PMHx: Hypertension; lp1 lp1 02:32 02:31 PMHx: Diabetes - IDDM; lp1 lp1 02:32 02:31 PMHx: High Cholesterol; lp1 lp1 02:32 02:31 PMHx: CAD; lp1 lp1 02:32 02:31 PMHx: Myocardial infarction; lp1 lp1 02:32 02:31 PMHx: cardiac arrest; lp1 lp1 02:32 02:31 PMHx: Chronic pain; lp1 lp1 02:32 02:31 PMHx: angina pectoris; lp1 lp1 02:32 02:31 PSHx: 4 heart stents; lp1 lp1 06:43 02:41 Urine Dipstick-Ancillary ordered. [facility] kd3
[2022-04-07] MEDS ORDERED: NA CHLORIDE 0.9% 1,000 ML ONE (04:52)
[2022-04-07] MEDS ORDERED: ACETYLCYST 6,000 MG/30 ML VIAL ONE (04:52)
[2022-04-07 06:49] VITALS: TEMP 97.5; O2SAT 100
[2022-04-07 06:51] VITALS: BP 135/81
--- NOTE | 2022-04-07 13:43 | RAD REPORT ---
EXAM DESCRIPTION: Lumbar Spine 3 Views CLINICAL HISTORY: PAIN COMPARISON: None. FINDINGS: 3 views of the lumbar spine. Posterior fixation at L3-L5. Dorsal generator with epidural l nuha. Stable lumbar vertebral body height. No acute cortical step-off or subluxation. Mild to moderat e multilevel loss of intervertebral disc height with endplate spondylosis. Degenerative change of the hips. Osteopenia. IMPRESSION: 1. No definite acute abnormality of the lumbar spine by plain film criteria. 2. 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 Posterior fixation at L3-L5. Electronically signed by: Durga Castro 04/07/2022 4:10 AM CDT Due to temporary technical issues with the PACS/Fluency reporting system, reports are being signed by the in house radiologist without review as a courtesy to ensure prompt reporting. The interpreting r adiologist is fully responsible for the content of the report.
--- NOTE | 2022-04-07 13:44 | RAD REPORT ---
EXAM DESCRIPTION: Knee Left 3 View CLINICAL HISTORY: PAIN COMPARISON: None. FINDINGS: 3 views of the left knee. No acute fracture or dislocation. Osteopenia. Atherosclerotic va scular calcification. 3 compartment joint space narrowing. No joint effusion. IMPRESSION: 1. No acute fracture or dislocation. Electronically signed by: Durga Castro 04/07/2022 4:05 AM CDT Due to temporary technical issues with the PACS/Fluency reporting system, reports are being signed by the in house radiologist without review as a courtesy to ensure prompt reporting. The interpreting r adiologist is fully responsible for the content of the report.
--- NOTE | 2022-04-07 13:45 | RAD REPORT ---
EXAM DESCRIPTION: Hip Left 2 View CLINICAL HISTORY: PAIN COMPARISON: None. FINDINGS: 2 views of the left hip. No acute fracture or dislocation. Osteopenia. Mild left hip joint space narrowing. Atherosclerotic vascular calcification. Penile implant. IMPRESSION: 1. No acute fracture or dislocation. Electronically signed by: Durga Castro 04/07/2022 4:11 AM CDT Due to temporary technical issues with the PACS/Fluency reporting system, reports are being signed by the in house radiologist without review as a courtesy to ensure prompt reporting. The interpreting r adiologist is fully responsible for the content of the report.
== END 2022-04-07 06:44 | disposition home or self-care (01) ==
LOC: ER 01:43
DX: M54.32 Sciatica, left side (principal); N17.9 Acute kidney failure, unspecified; N18.9 Chronic kidney disease, unspecified
CPT/HCPCS: 96361; 85025; 36415; 80053; 72100; 73502; 73562; 96375; 96374; 99284; J1100; J2270 ×2; J7040; J7030; J2405

== ENCOUNTER 2022-04-10 11:33 | Emergency (ER) | payer OTHER ==
--- OUTSIDE RECORDS SUMMARY | 2022-04-10 11:47 | XMS REPORT | Continuity of Care Document ---
:1940 Author Organization [facility] t Address [address] [place] [address] Care Team Providers Name Role Phone Andres GARZA Primary Care Physician Unavailable Denny Attending Clinician Unavailable Lester Attending Clinician Unavailable DANIELLE MURGUIA Attending Clinician Unavailable Lulú AGUILAR Attending Clinician Unavailable Luúl Aguilar DO Attending Clinician ATTAR Attending Clinician [...] WOOTEN Attending Clinician STEVEN Attending Clinician Unavailable CHAAV Attending Clinician Unavailable Chava WOOTEN Attending Clinician [...] Number Effective Date Expiration Date Stacy torres [facility] [id number] 2020 00:00:00 [facility] [id number] 2019 DUAL COMPLETE HMO 00:00:00 [place]ICAID OF [place] [id number] 2018 00:00:00 Problems Condition Condition Condition Status [...] ity of pneumonia pneumonia 00:00: [facility] s 00 Medical Branch PNA PNA Disease Active 2018-11 Univers (pneumonia (pneumonia 0-25 it y of ) ) 00:00: [place] 00 Medical Branch Acute on Acute on [...] it y of on on 00:00: [place] 00 Medical Branch Essential Essential Disease Active Uni vers hypertensi hypertensi 2-17 it y of on on 00:00: [place] 00 Medical Branch Type 2 Type 2 [...] 00:00: [place] involving involving 00 Medi birdie [place]iana [place] 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 00:00: [place] disease disease 00 Medical Branch Coronary Coronary Disease Active Unive rs artery artery 1-27 ity of disease disease 00:00: [place] involving involving 00 Medi birdie [place] 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 [...] Active Univers ALLERGIE Class ity of S [facility] Social History Social Habit Start Date Stop Date Quantity Comments Source Exposure to Unable to assess Univers ity of SARS-CoV-2 (event) [facility] History of tobacco User of Univer sity of use smokeless [facility] tobacco [place] Alcohol intake 2022-03-01 2022-03-01 Current University of 00:00:00 00:00:00 non-drinker of [facility] alcohol Branch (finding) Cigarettes smoked 2018-12-11 2018-12-11 Univers ity of current (pack per 00:00:00 00:00:00 [facility] [place] [facility] ) - Reported Branch Cigarette 2018-12-11 2018-12-11 University of pack-years 00:00:00 00:00:00 [facility] Tobacco use and 2018-12-11 2018-12-11 Former user Universi ty of exposure 00:00:00 00:00:00 [facility] Sex Ass[birth year] At [birth year] Universit y of 00:00:00 00:00:00 [facility] Smoking Status Start Date Stop Date Source Former smoker 2018-12-11 00:00:00 2018-12-11 00:00:00 Universi ty [facility] [place] [facility] Medications Ordered Filled Start Stop Current Ordering Indication Dosage Frequency Signature Comments Components Source Medication Medication Date Date Medication? Clinician (SIG) Name Name FENTanyl PF No 25ug 25 mcg, Un mel (SUBLIMAZE 03-01 Intramuscu it y of (PF)) 16:45: 16:23 lar, ONCE, [place] injection 00 :00 1 dose, On Medi birdie 25 mcg [facility] 03/01/22 at 1145, Routine cyclobenzap No 10mg 10 mg, Uni vers rine 03-01 Oral, ity of (FLEXERIL) 14:00: 12:59 ONCE, 1 [place] tablet 10 00 :00 dose, On Medica l mg [facility] 03/01/22 at 0900, Routine HYDROcodone 2021- [...] 03/01/22 at 0900, 1 mL cyclobenzap Yes [id number] 10mg Take 1 Univers rine 10 mg 16 tablet by ity of tablet 00:00: mouth 3 [place] 00 (three) Medical times [place] daily as needed for Muscle Spasms. aspirin 81 2020-11- No [id number] 81mg Take 1 Univers mg chewable 2-19 12-04 tablet by it y of tablet 00:00: 05:59 mouth [place] 00 :00 daily for Medical 30 days. [place] clopidogreL 2020-11- No [id number] 75mg Take 1 Univers 75 mg 2-19 - tablet by ity of tablet 00:00: 05:59 mouth [place] 00 :00 daily for Medical 30 days. Branch furosemide 2020-11- No [id number] 20mg Take 1 Univers 20 mg 2-04 12- tablet by ity of tablet 00:00: 05:59 mouth [place] 00 :00 daily for Medical 30 days. [place] aspirin 81 2020-11- No [id number] 81mg Take 1 Univers mg chewable 2-12-04 tablet by it y of tablet 00:00: 05:59 mouth [place] 00 :00 daily for Medical 30 days. Branch clopidogreL 2020-11- No [id number] 75mg Take 1 Univers 75 mg 2-19 - tablet by ity of tablet 00:00: 05:59 mouth [place] 00 :00 daily for Medical 30 days. Branch furosemide 2020-11- No [id number] 20mg Take 1 Univers 20 mg 2-19 - tablet by ity of tablet 00:00: 05:59 mouth [place] 00 :00 daily for Medical 30 days. [place] aspirin 81 2020-11- No [id number] 81mg Take 1 Univers mg chewable 2-19 - tablet by it y of tablet 00:00: 05:59 mouth [place] 00 :00 daily for Medical 30 days. Branch clopidogreL 2020-11- No [id number] 75mg Take 1 Univers 75 mg 01-04 tablet by ity of tablet 00:00: 05:59 mouth [place] 00 :00 daily for Medical 30 days. Branch furosemide 2020-11- No [id number] 20mg Take 1 Univers 20 mg 01-04 [...] 2-18 by mouth ity of 18:25: at [place] 21 bedtime. Medical Branch atorvastati 2020-11 Yes 40mg Take 40 mg Univers n 40 mg 2-18 by mouth ity of tablet 18:25: at [place] 21 bedtime. Medical Branch trazodone 2020-11 Yes 50mg Take 50 mg Un mel HCl 2-18 by mouth ity of (TRAZODONE 18:25: every [place] ORAL) 21 evening. Medical Branch nitroglycer 2020-11 Yes .4mg Take 0.4 Un eml in 2-18 mg by ity of (NITRO-TIME [...] Until Discontinu ed, Routine QUEtiapine 2020-11 Yes [id number] 25mg Take 1 Univers 25 mg 2-18 tablet by ity of tablet 00:00: mouth at [place] [address] bedtime as Medical needed Branch (agitation /insomnia) . QUEtiapine 2020-11 Yes [id number] 25mg Take 1 Univers 25 mg 2-18 tablet by ity of tablet 00:00: mouth at [place] [address] bedtime as Medical needed Branch (agitation /insomnia) . QUEtiapine 2020-11 Yes [id number] 25mg Take 1 Univers 25 mg 2-18 tablet by ity of tablet 00:00: mouth at [place] [address] bedtime as Medical needed Branch (agitation /insomnia) . QUEtiapine 2020-11 Yes [id number] 25mg Take 1 Univers 25 mg 2-18 tablet by ity of tablet 00:00: mouth at [place] [address] bedtime as Medical needed Branch (agitation /insomnia) . isosorbide 2020-11 No [id number] 60mg Take 1 Univers mononitrate 2-18 01-18 tablet by it y of 60 mg 24 hr 00:00: 05:59 mouth 2 [place] tablet 00 :00 (two) Medical times Branch daily for 30 days. metoprolol 2020-11- No [id number] 37.5mg Take 1.5 Univers succinate 2-18 -18 tablets by ity of XL 25 mg 24 00:00: 05:59 mouth 2 [place] hr tablet 00 :00 (two) Medical times Branch daily for 30 days. isosorbide 2020-11- No [id number] 60mg Take 1 Univers mononitrate 2-18 -18 tablet by it y of 60 mg 24 hr 00:00: 05:59 mouth 2 [place] tablet 00 :00 (two) Medical times Branch daily for 30 days. metoprolol 2020-11- No [id number] 37.5mg Take 1.5 Univers succinate 2-18 -18 tablets by ity of XL 25 mg 24 00:00: 05:59 mouth 2 [place] hr tablet 00 :00 (two) Medical times Branch daily for 30 days. isosorbide 2020-11- No [id number] 60mg Take 1 Univers mononitrate 2-18 -18 tablet by it y of 60 mg 24 hr 00:00: 05:59 mouth 2 [place] tablet 00 :00 (two) Medical times Branch daily for 30 days. metoprolol 2020-11- No [id number] 37.5mg Take 1.5 Univers succinate 2-18 -18 [...] mg 03:00: First dose [place] 00 on [facility] Medical 10/31/21 Branch at 2100, Until Discontinu ed, Routine atorvastati 2020-11 Yes 40mg 40 mg, Univ ers n (LIPITOR) 2-17 Oral, QHS, it y of tablet 40 03:00: First dose [place] mg 00 on [facility] Medical 10/31/21 Branch at 2100, Until Discontinu ed, Routine clopidogreL 2020-11 Yes 75mg 75 mg, Univ ers (PLAVIX) 2-16 Oral, ity of tablet 75 23:30: DAILY, [place] mg 00 First dose Medical on [facility] Branch 10/31/21 at 1730, Until Discontinu ed, Routine sulfur 2020-11- No [id number] 5mL 5 mL, Unive rs hexafluorid 01-01 Intravenou i ty of e microsphr 17:00: 17:00 s, ONCE, 1 [place] (LUMASON) 00 :00 dose, On Medica l injection 5 Madhavi Branch mL 10/31/21 at 1100, Routine
member services representative approving Restricted medication : MEGGAN CAMARA isosorbide [...] = 1 mg/kg Medical ?78 kg), Branch [facility], Q24H, First dose on Madhavi [...] KIT) 15 Starting Medical injection 1 on [facility] Branch mg 10/31/21 at 0216, Until Discontinu ed, ADAMA, Blood Glucose < or = 70 mg/dL and patient is unable to swallow or has mental changes. dextrose 50 2020-11 Yes 25mL 25 mL, Univ ers % in water 2-16 Slow IV ity of (D50W) 08:16: Push, PRN, [place] injection 14 Starting Medica l 25 mL on [facility] Branch 10/31/21 at 0216, Until Discontinu ed, ADAMA, Blood Glucose < or = 70 mg/dL and patient is unable to swallow or has mental status changes. morpHINE 2020-11- No 2mg 2 mg, Slow Un mel injection 2 01-0117 IV Push, ity of mg 07:36: 05:31 Q4HPRN, [place] 09 :07 Starting Medical on [facility] Branch 10/31/21 at 0136, Until Madhavi 10/31/21 [...] IV Push, ity of (PF)) 05:32: Q6HPRN, [place] injection 4 10 Starting Medi birdie mg on Wed Branch 10/30/21 at 2332, Until Discontinu ed, Routine, Nausea and Vomiting (N/V) acetaminoph 2020-11 Yes 650mg 650 mg, Un mel en 2-16 Oral, ity of (TYLENOL) 05:31: Q6HPRN, [place] tablet 650 56 Starting Medic al mg [...] ity o f (NS) 01:21: s, PRN, [place] injection 5 02 Starting Medi birdie mL [...] at Branch 1400, ADAMA cyclobenzap 2020-0 Yes [id number] 5mg Take 1 Univers rine 5 mg 6-10 tablet by ity o f tablet 00:00: mouth 3 [place] 00 (three) Medical times Branch daily. cyclobenzap 2020-0 Yes [id number] 5mg Take 1 Univers rine 5 mg 6-10 tablet by ity o f tablet 00:00: mouth 3 [place] 00 (three) Medical times Branch daily. cyclobenzap 2020-0 Yes [id number] 5mg Take 1 Univers rine 5 mg [...] sided low back pain cyclobenzap 2020-0 Yes [id number] 5mg Take 1 Univers rine 5 mg [...] sided low back pain cyclobenzap 2020-0 Yes [id number] 5mg Take 1 Univers rine 5 mg 6-10 tablet by ity o f tablet 00:00: mouth 3 [place] 00 (three) Medical times Branch daily. cyclobenzap 2020-0 2021- No [id number] 5mg Take 1 Univers rine 5 mg [...] U-100) 00 First dose Medical injection on [facility] Branch 30 Units 03/24/20 at 0900, Until Discontinu ed clopidogreL 2020-0 Yes 75mg 75 mg, Univ ers (PLAVIX) 03-24 Oral, ity of tablet 75 14:00: DAILY, [place] mg 00 First dose Medical on [facility] 03/24/20 at 0900, Until Discontinu ed, Routine insulin 2020-0 Yes 30U 30 Units, Unive rs glargine 03-24 Subcutaneo ity o f (LANTUS 14:00: us, DAILY, [place] U-100) 00 First dose Medical injection on [facility] Branch 30 Units 03/24/20 at 0900, Until Discontinu ed clopidogreL 2020-0 Yes 75mg 75 mg, Univ ers (PLAVIX) 03-24 Oral, ity of tablet 75 14:00: DAILY, [place] mg 00 First dose Medical on [facility] 03/24/20 at 0900, Until Discontinu ed, [...] First dose [place] mg 00 on [facility] [place] [facility] Medical 03/23/20 at Branch 2100, Until Discontinu ed, Routine atorvastati 2020-0 Yes 40mg 40 mg, Univ ers n (LIPITOR) 5-09 Oral, QHS, it y of tablet 40 02:00: First dose [place] mg 00 on Thu Medical 03/23/20 at Branch 2100, Until Discontinu ed, Routine aspirin 81 2020-0 Yes [id number] 81mg Take 1 U nivers mg chewable 5-09 tablet by ity of tablet 00:00: mouth [place] 00 daily with Medical breakfast. [place] furosemide 2020-0 Yes [id number] 20mg Take 1 U nivers 20 mg 5-09 tablet by ity of tablet 00:00: mouth [place] 00 daily. [facility] aspirin 81 2020-0 Yes [id number] 81mg Take 1 U nivers mg chewable 5-09 tablet by ity of tablet 00:00: mouth [place] 00 daily with Medical breakfast. [place] furosemide 2020-0 Yes [id number] 20mg Take 1 U nivers 20 mg 5-09 tablet by ity of tablet 00:00: mouth [place] 00 daily. [facility] aspirin 81 2020-0 Yes [id number] 81mg Take 1 U nivers mg chewable 5-09 tablet by ity of tablet 00:00: mouth [place] 00 daily with Medical breakfast. [place] furosemide 2020-0 Yes [id number] 20mg Take 1 U nivers 20 mg 5-09 tablet by ity of tablet 00:00: mouth [place] 00 daily. [facility] aspirin 81 2020-0 Yes [id number] 81mg Take 1 U nivers mg chewable 5-09 tablet by ity of tablet 00:00: mouth [place] 00 daily with Medical breakfast. [place] furosemide 2020-0 Yes [id number] 20mg Take 1 U nivers 20 mg 5-09 tablet by ity of tablet 00:00: mouth [place] 00 daily. [facility] aspirin 81 2020-0 Yes [id number] 81mg Take 1 U nivers mg chewable 5-09 tablet by ity of tablet 00:00: mouth [place] 00 daily with Medical breakfast. [place] furosemide 2020-0 Yes [id number] 20mg Take 1 U nivers 20 mg 5-09 tablet by ity of tablet 00:00: mouth [place] 00 daily. [facility] aspirin 81 2020-0 Yes [id number] 81mg Take 1 U nivers mg chewable 5-09 tablet by ity of tablet 00:00: mouth [place] 00 daily with Medical breakfast. [place] furosemide 2020-0 Yes [id number] 20mg Take 1 U nivers 20 mg 5-09 tablet by ity of tablet 00:00: mouth [place] 00 daily. Medical Branch aspirin 81 2020-0 Yes [id number] 81mg Take 1 U nivers mg chewable 5-09 tablet by ity of tablet 00:00: mouth [place] 00 daily with Medical breakfast. Branch furosemide 2020-0 Yes [id number] 20mg Take 1 U nivers 20 mg 5-09 tablet by ity of tablet 00:00: mouth [place] 00 daily. Medical Branch aspirin 81 2020-0 Yes [id number] 81mg Take 1 U nivers mg chewable 5-09 tablet by ity of tablet 00:00: mouth [place] 00 daily with Medical breakfast. Branch furosemide 2020-0 Yes [id number] 20mg Take 1 U nivers 20 mg 5-09 tablet by ity of tablet 00:00: mouth [place] 00 daily. Medical Branch aspirin 81 2020-0 Yes [id number] 81mg Take 1 U nivers mg chewable 5-09 tablet by ity of tablet 00:00: mouth [place] 00 daily with Medical breakfast. Branch furosemide 2020-0 Yes [id number] 20mg Take 1 U nivers 20 mg 5-09 tablet by ity of tablet 00:00: mouth [place] 00 daily. Medical Branch aspirin 81 2020-0 2021- No [id number] 81mg Take 1 Univers mg chewable 5-09 12-18 tablet by it y of tablet 00:00: 00:00 mouth [place] 00 :00 daily with Medical breakfast. Branch furosemide 2020-0 2021- No [id number] 20mg Take 1 Univers 20 mg 5-09 12-18 tablet by ity of tablet 00:00: 00:00 mouth [place] 00 :00 daily. Medical Branch isosorbide 2020-0 2020- No [id number] 90mg Take 3 Univers mononitrate 5-09 05-08 tablets by i ty of 30 mg 24 hr 00:00: 00:00 mouth [place] tablet 00 :00 daily. Medical Branch isosorbide 2020-0 2020- No [id number] 90mg Take 3 Univers mononitrate 5-09 05-08 tablets by i ty of 30 mg 24 hr 00:00: 00:00 mouth [place] tablet 00 :00 daily. Medical Branch maalox/lido 2020-0 2020- No 5mL 5 mL, Univ ers sydni 2 5-08 05-08 Oral, ity of %viscous 20:45: 20:56 ONCE, 1 [place] 1:1 00 :00 dose, Fri Medical suspension 03/23/20 at [facility] (COMPOUNDED 1545, ) Routine maalox/lido 2020-0 2020- No 5mL 5 mL, Univ ers sydni 2 03-23-08 Oral, ity of %viscous 20:45: 20:56 ONCE, 1 [place] 1:1 00 :00 dose, Fri Medical suspension 03/23/20 at [facility] (COMPOUNDED 1545, ) Routine acetaminoph 2020-0 [...] :00 dose, Fri Medical (DEFINITY) 03/23/20 at [facility] injection 2 1030, mL Routine perflutren [...] IV Push, ity of mg 07:59: Q4HPRN, [place] 14 Starting Medical [facility] [place] [facility] 03/23/20 Ridge at 0259, Until Discontinu ed, Routine, Chest pain magnesium 2020-0 2020- No 2g 2 g, IV Univ ers sulfate in 03-23 Piggyback, it y of water 2 07:45: 07:49 ONCE, 1 [place] gram/50 mL 00 :00 dose, Fri Medi birdie (4 %) 03/23/20 at [place] infusion 2 0245, g Routine KCL 2020-0 2020- No 40meq 40 mEq, Univers (KLOR-CON 03-23 Oral, ity of M20) tablet 07:45: 07:27 ONCE, 1 [place] 40 mEq 00 :00 dose, Fri Medical 03/23/20 at [place] 0245, Routine magnesium 2020-0 2020- No 2g [...] 00 :00 dose, Fri Medical 03/23/20 at [place] 0245, Routine heparin 2020-0 Yes 12U/kg/ 12 [...] Medical tablet 0.4 doses, Branch mg Starting [facility] 03/22/20 at 2138, Until Discontinu ed, ADAMA, Chest pain nitroglycer 2020-0 Yes .4mg 0.4 mg, Uni vers in 03-23 Sublingual ity of (NITROSTAT) 02:38: , Q5MIN [place] as sublingual 00 PRN, 3 Medical tablet 0.4 doses, Branch mg Starting [facility] 03/22/20 at 2138, Until Discontinu ed, ADAMA, Chest pain aspirin 2020-0 2020- No 324mg 324 mg, Unive rs chewable 5- 05-08 Oral, ity of tablet 324 02:37: 02:51 ONCE, 1 [place] mg 00 :00 dose, [facility] 03/22/20 at Branch 2145, ADAMA aspirin 2020-0 2020- No 324mg 324 mg, Unive rs chewable 03-23 05-08 Oral, ity of tablet 324 02:37: 02:51 ONCE, 1 [place] mg 00 :00 dose, [facility] 03/22/20 at Branch 2145, ADAMA isosorbide 2020-0 Yes [id number] 90mg Take 1.5 Univers mononitrate 5-08 tablets by it y of 60 mg 24 hr 00:00: mouth [place] tablet 00 daily. [facility] isosorbide 2020-0 Yes [id number] 90mg Take 1.5 Univers mononitrate 5-08 tablets by it y of 60 mg 24 hr 00:00: mouth [place] tablet 00 daily. [facility] isosorbide 2020-0 Yes [id number] 90mg Take 1.5 Univers mononitrate 5-08 tablets by it y of 60 mg 24 hr 00:00: mouth [place] tablet 00 daily. [facility] isosorbide 2020-0 Yes [id number] 90mg Take 1.5 Univers mononitrate 5-08 tablets by it y of 60 mg 24 hr 00:00: mouth [place] tablet 00 daily. [facility] isosorbide 2020-0 Yes [id number] 90mg Take 1.5 Univers mononitrate 5-08 tablets by it y of 60 mg 24 hr 00:00: mouth [place] tablet 00 daily. Medical Branch isosorbide 2020-0 Yes [id number] 90mg Take 1.5 Univers mononitrate 5-08 tablets by it y of 60 mg 24 hr 00:00: mouth [place] tablet 00 daily. Medical Branch isosorbide 2020-0 Yes [id number] 90mg Take 1.5 Univers mononitrate 5-08 tablets by it y of 60 mg 24 hr 00:00: mouth [place] tablet 00 daily. Medical Branch isosorbide 2020-0 Yes [id number] 90mg Take 1.5 Univers mononitrate 5-08 tablets by it y of 60 mg 24 hr 00:00: mouth [place] tablet 00 daily. Medical Branch isosorbide 2020-0 Yes [id number] 90mg Take 1.5 Univers mononitrate 5-08 tablets by it y of 60 mg 24 hr 00:00: mouth [place] tablet 00 daily. Medical Branch isosorbide 2020-0 2021- No [id number] 90mg Take 1.5 Univers mononitrate 5-08 12-18 tablets by i ty of 60 mg 24 hr 00:00: 00:00 mouth [place] tablet 00 :00 daily. Medical Branch acetaminoph 2020-0 2020- No [id number] 975mg Take 3 Univers en 325 mg 5-08 05-19 tablets by ity of tablet 00:00: 04:59 mouth [place] 00 :00 every 8 Medical (eight) Branch hours for 10 days. acetaminoph 2020-0 2020- No [id number] 975mg Take 3 Univers en 325 mg 5-08 05-19 tablets by ity of tablet 00:00: 04:59 mouth [place] 00 :00 every 8 Medical (eight) Branch hours for 10 days. acetaminoph 2020-0 2020- No [id number] 975mg Take 3 Univers en 325 mg 5-08 05-19 tablets by ity of tablet 00:00: 04:59 mouth [place] 00 :00 every 8 Medical (eight) Branch hours for 10 days. acetaminoph 2020-0 2020- No [id number] 975mg Take 3 Univers en 325 mg 5-08 05-19 tablets by ity of tablet 00:00: 04:59 mouth [place] 00 :00 every 8 Medical (eight) Branch hours for 10 days. acetaminoph 2020-0 2020- No [id number] 975mg Take 3 Univers en 325 mg 5-08 05-19 tablets by ity of tablet 00:00: 04:59 mouth [place] 00 :00 every 8 Medical (eight) Branch hours for 10 days. lidocaine 5 2019- 2020- No [id number] 1{patch Apply 1 Univers % (700 5-08 05-09 } Patch to ity of mg/patch) 00:00: 04:59 area(s) [place] patch 00 :00 once now Medical for 1 Branch dose. lidocaine 5 2020- No [id number] 1{patch Apply 1 Univers % (700 5-08 05-09 } Patch to ity of mg/patch) 00:00: 04:59 area(s) [place] patch 00 :00 once now Medical for 1 Branch dose. lidocaine 5 2019- 2020- No [id number] 1{patch Apply 1 Univers % (700 5-08 05-08 } Patch to ity of mg/patch) 00:00: 00:00 area(s) [place] patch 00 :00 once now Medical for 1 Branch dose. lidocaine 5 2019- No [id number] 1{patch Apply 1 Univers % (700 5-08 05-08 } Patch to ity of mg/patch) 00:00: 00:00 area(s) [place] patch 00 :00 once now Medical for 1 Branch dose. glipiZIDE 2020-0 Yes 5mg 5 mg, Univers (GLUCOTROL) 4-23 Oral, ity of tablet 5 mg 14:00: DAILY, [place] 00 First dose Medical on [facility] Branch 03/08/20 at 0900, Until Discontinu ed, Routine spironolact 2019-0 2020- No [id number] 12.5mg Take 0.5 Univers one 25 mg 4-23 05-24 tablets by ity of tablet 00:00: 04:59 mouth [place] 00 :00 daily for Medical 30 days. Branch spironolact 2020-0 2020- No [id number] 12.5mg Take 0.5 Univers one 25 mg 4-23 05-24 tablets by ity of tablet 00:00: 04:59 mouth [place] 00 :00 daily for Medical 30 days. Branch spironolact 2020-0 2020- No [id number] 12.5mg Take 0.5 Univers one 25 mg 4-23 05-24 tablets by ity of tablet 00:00: 04:59 mouth [place] 00 :00 daily for Medical 30 days. Branch spironolact 2020-0 2020- No [id number] 12.5mg Take 0.5 Univers one 25 mg 4-23 05-07 tablets by ity of tablet 00:00: 00:00 mouth [place] 00 :00 daily for Medical 30 days. Branch spironolact 2020-0 2020- No [id number] 12.5mg Take 0.5 Univers one 25 mg [...] mouth ity of tablet 20:15: 00:00 at [place] 29 :00 bedtime. Medical Branch temazepam 2020-0 Yes 15mg 15 mg, Univer s (RESTORIL) 4-22 Oral, ity of capsule 15 01:55: QHSPRN, [place] mg 38 Starting Medical Tue Branch 03/06/20 at 2055, Until Discontinu ed, Routine, Insomnia Insulin 2020-0 Yes [id number] 10U inject 10 Univers Glargine 4-22 Units ity of 100 unit/mL 00:00: under the [place] (3 mL) 00 skin at Medical injection bedtime. Branch temazepam 2020-0 Yes [id number] 15mg Take 1 Un mel 15 mg 4-22 capsule by ity of capsule 00:00: mouth at [place] 00 bedtime as Medical needed for Branch Insomnia. furosemide 2020-0 Yes [id number] 40mg Take 1 Univers 40 mg 4-22 tablet by ity of tablet 00:00: mouth [place] 00 every Medical morning Branch and evening. Magnesium 2020-0 Yes [id number] 400mg Take 400 Univers Oxide 420 4-22 mg by ity of mg Tab 00:00: mouth [place] 00 daily. Medical Branch potassium 2020-0 Yes [id number] 20meq Take 20 Univers chloride 20 4-22 mEq by ity of mEq packet 00:00: mouth [place] 00 daily. Medical Take with Branch lasix in the morning isosorbide 2020-0 Yes [id number] 15mg Take 0.5 Univers mononitrate 4-22 tablets by it y of 30 mg 24 hr 00:00: mouth [place] tablet 00 daily. Medical Hold if Branch systolic blood pressure less than 120 Insulin 2020-0 Yes [id number] 10U inject 10 Univers Glargine 4-22 Units ity of 100 unit/mL 00:00: under the [place] (3 mL) 00 skin at Medical injection bedtime. Branch temazepam 2020-0 Yes [id number] 15mg Take 1 Un mel 15 mg 4-22 capsule by ity of capsule 00:00: mouth at [place] 00 bedtime as Medical needed for Branch Insomnia. furosemide 2020-0 Yes [id number] 40mg Take 1 Univers 40 mg 4-22 tablet by ity of tablet 00:00: mouth [place] 00 every Medical morning Branch and evening. Magnesium 2020-0 Yes [id number] 400mg Take 400 Univers Oxide 420 4-22 mg by ity of mg Tab 00:00: mouth [place] 00 daily. Medical Branch potassium 2020-0 Yes [id number] 20meq Take 20 Univers chloride 20 4-22 mEq by ity of mEq packet 00:00: mouth [place] 00 daily. Medical Take with Branch lasix in the morning isosorbide 2020-0 Yes [id number] 15mg Take 0.5 Univers mononitrate 4-22 tablets by it y of 30 mg 24 hr 00:00: mouth [place] tablet 00 daily. Medical Hold if Branch systolic blood pressure less than 120 Insulin 2020-0 Yes [id number] 10U inject 10 Univers Glargine 4-22 Units ity of 100 unit/mL 00:00: under the [place] (3 mL) 00 skin at Medical injection bedtime. Branch temazepam 2020-0 Yes [id number] 15mg Take 1 Un mel 15 mg 4-22 capsule by ity of capsule 00:00: mouth at [place] 00 bedtime as Medical needed for Branch Insomnia. furosemide 2020-0 Yes [id number] 40mg Take 1 Univers 40 mg 4-22 tablet by ity of tablet 00:00: mouth [place] 00 every Medical morning Branch and evening. Magnesium 2020-0 Yes [id number] 400mg Take 400 Univers Oxide 420 4-22 mg by ity of mg Tab 00:00: mouth [place] 00 daily. Medical Branch potassium 2020-0 Yes [id number] 20meq Take 20 Univers chloride 20 4-22 mEq by ity of mEq packet 00:00: mouth [place] 00 daily. Medical Take with Branch lasix in the morning isosorbide 2020-0 Yes [id number] 15mg Take 0.5 [facility] mononitrate 4-22 tablets by it y of 30 mg 24 hr 00:00: mouth [place] tablet 00 daily. Medical Hold if Branch systolic blood pressure less than 120 Insulin 2020-0 Yes [id number] 10U inject 10 [facility] Glargine 4-22 Units ity of 100 unit/mL 00:00: under the [place] (3 mL) 00 skin at Medical injection bedtime. Branch Magnesium 2020-0 Yes [id number] 400mg Take 400 [facility] Oxide 420 4-22 mg by ity of mg Tab 00:00: mouth [place] 00 daily. Medical Branch vitamin 2019-0 2020- No [id number] 1000ug Take 1 [facility] B-12 1,000 4-22 07-22 tablet by ity of mcg tablet 00:00: 04:59 mouth [place] 00 :00 daily for Medical 90 days. Branch vitamin 2019-0 2020- No [id number] 1000ug Take 1 [facility] B-12 1,000 4-22 07-22 tablet by ity of mcg tablet 00:00: 04:59 mouth [place] 00 :00 daily for Medical 90 days. Branch vitamin 2020-0 2020- No [id number] 1000ug Take 1 [facility] B-12 1,000 4-22 07-22 tablet by ity of mcg tablet 00:00: 04:59 mouth [place] 00 :00 daily for Medical 90 days. Branch vitamin 2019-0 2020- No [id number] 1000ug Take 1 [facility] B-12 1,000 4-22 07-22 tablet by ity of mcg tablet 00:00: 04:59 mouth [place] 00 :00 daily for Medical 90 days. Branch glipiZIDE 5 2019- 2020- No [id number] 2.5mg Take 0.5 [facility] mg tablet 03-07-23 tablets by ity of 00:00: 04:59 mouth 2 [place] 00 :00 (two) Medical times Branch daily before breakfast and dinner for 30 days. metoprolol 2019-0 2020- No [id number] 25mg Take 1 [facility] succinate 03-07-23 tablet by ity of XL 25 mg 24 00:00: 04:59 mouth 2 [place] hr tablet 00 :00 (two) Medical times Branch daily for 30 days. OLANZapine 2019-0 2020- No [id number] 2.5mg Take 1 [facility] 2.5 mg -06 04-23 tablet by ity of tablet 00:00: 04:59 mouth at [place] 00 :00 bedtime Medical for 30 Branch days. ranolazine 2019-0 2020- No [id number] 1000mg Take 2 [facility] 500 mg 12 03-07-23 tablets by ity of hr tablet 00:00: 04:59 mouth [place] 00 :00 every 12 Medical (twelve) Branch hours for 30 days. aspirin 81 2019-0 2020- No [id number] 81mg Take 1 [facility] mg chewable 4-22 05-23 tablet by it y of tablet 00:00: 04:59 mouth [place] 00 :00 daily with Medical breakfast Branch for 30 days. atorvastati 2019-0 2020- No [id number] 40mg Take 1 [facility] n 40 mg 4-22 05-23 tablet by ity of tablet 00:00: 04:59 mouth at [place] 00 :00 bedtime Medical for 30 Branch days. glipiZIDE 5 2019- 2020- No [id number] 2.5mg Take 0.5 [facility] mg tablet 4-22 05-23 tablets by ity of 00:00: 04:59 mouth 2 [place] 00 :00 (two) Medical times Branch daily before breakfast and dinner for 30 days. metoprolol 2019-0 2020- No [id number] 25mg Take 1 [facility] succinate 4-22 05-23 tablet by ity of XL 25 mg 24 00:00: 04:59 mouth 2 [place] hr tablet 00 :00 (two) Medical times Branch daily for 30 days. OLANZapine 2020-0 2020- No [id number] 2.5mg Take 1 [facility] 2.5 mg 4-22 05-23 tablet by ity of tablet 00:00: 04:59 mouth at [place] 00 :00 bedtime Medical for 30 Branch days. ranolazine 2019-0 2020- No [id number] 1000mg Take 2 [facility] 500 mg 12 4-22 05-23 tablets by ity of hr tablet 00:00: 04:59 mouth [place] 00 :00 every 12 Medical (twelve) Branch hours for 30 days. aspirin 81 2019-0 2020- No [id number] 81mg Take 1 [facility] mg chewable 4-22 05-23 tablet by it y of tablet 00:00: 04:59 mouth [place] 00 :00 daily with Medical breakfast Branch for 30 days. atorvastati 2020-0 2020- No [id number] 40mg Take 1 [facility] n 40 mg 4-22 05-23 tablet by ity of tablet 00:00: 04:59 mouth at [place] 00 :00 bedtime Medical for 30 Branch days. glipiZIDE 5 2020-0 2020- No [id number] 2.5mg Take 0.5 [facility] mg tablet 4-22 05-23 tablets by ity of 00:00: 04:59 mouth 2 [place] 00 :00 (two) Medical times Branch daily before breakfast and dinner for 30 days. metoprolol 2020-0 2020- No [id number] 25mg Take 1 [facility] succinate 4-22 05-23 tablet by ity of XL 25 mg 24 00:00: 04:59 mouth 2 [place] hr tablet 00 :00 (two) Medical times Branch daily for 30 days. OLANZapine 2020-0 2020- No [id number] 2.5mg Take 1 [facility] 2.5 mg 4-22 05-23 tablet by ity of tablet 00:00: 04:59 mouth at [place] 00 :00 bedtime Medical for 30 Branch days. ranolazine 2020-0 2020- No [id number] 1000mg Take 2 [facility] 500 mg 12 4-22 05-23 tablets by ity of hr tablet 00:00: 04:59 mouth [place] 00 :00 every 12 Medical (twelve) Branch hours for 30 days. aspirin 81 2019-0 2020- No [id number] 81mg Take 1 [facility] mg chewable 4-22 05-23 tablet by it y of tablet 00:00: 04:59 mouth [place] 00 :00 daily with Medical breakfast Branch for 30 days. atorvastati 2019-0 2020- No [id number] 40mg Take 1 [facility] n 40 mg 4-22 05-23 tablet by ity of tablet 00:00: 04:59 mouth at [place] 00 :00 bedtime Medical for 30 Branch days. glipiZIDE 5 2019- 2020- No [id number] 2.5mg Take 0.5 [facility] mg tablet - 05-23 tablets by ity of 00:00: 04:59 mouth 2 [place] 00 :00 (two) Medical times Branch daily before breakfast and dinner for 30 days. metoprolol 2019-0 2020- No [id number] 25mg Take 1 [facility] succinate 4-22 05-23 tablet by ity of XL 25 mg 24 00:00: 04:59 mouth 2 [place] hr tablet 00 :00 (two) Medical times Branch daily for 30 days. ranolazine 2020-0 2020- No [id number] 1000mg Take 2 [facility] 500 mg 12 4-22 05-23 tablets by ity of hr tablet 00:00: 04:59 mouth [place] 00 :00 every 12 Medical (twelve) Branch hours for 30 days. atorvastati 2020-0 2020- No [id number] 40mg Take 1 [facility] n 40 mg 4-22 05- tablet by ity of tablet 00:00: 04:59 mouth at [place] 00 :00 bedtime Medical for 30 Branch days. furosemide 2020- No [id number] 40mg Take 1 [facility] 40 mg 03-07-08 tablet by ity of tablet 00:00: 00:00 mouth [place] 00 :00 every Medical morning Branch and evening. aspirin 81 2020- No [id number] 81mg Take 1 [facility] mg chewable 03-07-08 tablet by it y of tablet 00:00: 00:00 mouth [place] 00 :00 daily with Medical breakfast Branch for 30 days. isosorbide 2019- No [id number] 15mg Take 0.5 [facility] mononitrate 03-07-08 tablets by i ty of 30 mg 24 hr 00:00: 00:00 mouth [place] tablet 00 :00 daily. Medical Hold if Branch systolic blood pressure less than 120 Insulin 2019-2019- No [id number] 10U inject 10 [facility] Glargine 03-07-08 Units ity of 100 unit/mL 00:00: 00:00 under the [place] (3 mL) 00 :00 skin at Medical injection bedtime. Branch glipiZIDE 5 2019- No [id number] 2.5mg Take 0.5 [facility] mg tablet 03-07- tablets by ity of 00:00: 00:00 mouth 2 [place] 00 :00 (two) Medical times Branch daily before breakfast and dinner for 30 days. metoprolol 2019- No [id number] 25mg Take 1 [facility] succinate 03-07-08 tablet by ity of XL 25 mg 24 00:00: 00:00 mouth 2 [place] hr tablet 00 :00 (two) Medical times Branch daily for 30 days. ranolazine 2020- No [id number] 1000mg Take 2 [facility] 500 mg 12 03-07-08 tablets by ity of hr tablet 00:00: 00:00 mouth [place] 00 :00 every 12 Medical (twelve) Branch hours for 30 days. furosemide 2020- No [id number] 40mg Take 1 [facility] 40 mg 03-07-08 tablet by ity of tablet 00:00: 00:00 mouth [place] 00 :00 every Medical morning Branch and evening. aspirin 81 2019- No [id number] 81mg Take 1 [facility] mg chewable 03-07-08 tablet by it y of tablet 00:00: 00:00 mouth [place] 00 :00 daily with Medical breakfast Branch for 30 days. atorvastati 2019- No [id number] 40mg Take 1 [facility] n 40 mg 03-07-08 tablet by ity of tablet 00:00: 00:00 mouth at [place] 00 :00 bedtime Medical for 30 Branch days. Magnesium 2019-2019- No [id number] 400mg Take 400 [facility] Oxide 420 03-07 05-08 mg by ity of mg Tab 00:00: 00:00 mouth [place] 00 :00 daily. Medical Branch vitamin 2019-2019- No [id number] 1000ug Take 1 [facility] B-12 1,000 03-07-08 tablet by ity of mcg tablet 00:00: 00:00 mouth [place] 00 :00 daily for Medical 90 days. Branch isosorbide 2019- No [id number] 15mg Take 0.5 [facility] mononitrate 03-07-08 tablets by i ty of 30 mg 24 hr 00:00: 00:00 mouth [place] tablet 00 :00 daily. Medical Hold if Branch systolic blood pressure less than 120 OLANZapine 2019- No [id number] 2.5mg Take 1 [facility] 2.5 mg 03-07-07 tablet by ity of tablet 00:00: 00:00 mouth at [place] 00 :00 bedtime Medical for 30 Branch days. temazepam 2019- No [id number] 15mg Take 1 U nivers 15 mg 03-07-07 capsule by ity of capsule 00:00: 00:00 mouth at [place] 00 :00 bedtime as Medical needed for Branch Insomnia. potassium 2019- No [id number] 20meq Take 20 [facility] chloride 20 03-07 05-07 mEq by ity o f mEq packet 00:00: 00:00 mouth [place] 00 :00 daily. Medical Take with Branch lasix in the morning OLANZapine 2019- No [id number] 2.5mg Take 1 [facility] 2.5 mg 03-07 05-07 tablet by ity of tablet 00:00: 00:00 mouth at [place] 00 :00 bedtime Medical for 30 Branch days. temazepam 2019- No [id number] 15mg Take 1 U nivers 15 mg 03-07- capsule by ity of capsule 00:00: 00:00 mouth at [place] 00 :00 bedtime as Medical needed for [place] Insomnia. potassium 2020-0 2020- No [id number] 20meq Take 20 [facility] chloride 20 03-07-07 mEq by ity o f mEq packet 00:00: 00:00 mouth [place] 00 :00 daily. Medical Take with Branch lasix in the morning isosorbide 2020-0 2020- No 60mg 60 mg, Univ ers mononitrate 03-06- Oral, ity of (IMDUR) 24 14:00: 13:43 DAILY, [place] hr tablet 00 :56 First dose Medi birdie 60 mg on [facility] 03/06/20 at 0900, Until Discontinu ed, Routine OLANZapine 2020-0 Yes 2.5mg 2.5 mg, Uni vers (ZyPREXA) - Oral, QHS, ity of tablet 2.5 02:00: First dose [place] mg 00 on [facility] 03/05/20 at Branch 2100, Until Discontinu ed, Routine insulin 2020-0 Yes 10U 10 Units, [facility] rs glargine 03-06 Subcutaneo ity o f (LANTUS 02:00: us, QHS, [place] U-100) 00 First dose Medical injection on [facility] 10 Units 03/05/20 at 2100, Until Discontinu ed, Routine donepezil 2020-0 Yes 5mg 5 mg, Univers (ARICEPT) - Oral, QHS, ity of tablet 5 mg 02:00: First dose [place] 00 on [facility] 03/05/20 at Branch 2100, Until Discontinu ed, Routine atorvastati 2020-0 Yes 40mg 40 mg, Univ ers n (LIPITOR) - Oral, QHS, it y of tablet 40 02:00: First dose [place] mg 00 on [facility] 03/05/20 at Branch 2100, Until Discontinu ed, Routine isosorbide 2020-0 2020- No 30mg 30 mg, Univ ers mononitrate 03-05 Oral, ity of (IMDUR) 24 15:30: 15:21 ONCE, 1 [place] hr tablet 00 :00 dose, [facility] 30 mg 4/20/20 at Branch 1030, Routine spironolact 2020-0 Yes 12.5mg 12.5 mg, [facility] one 4-20 Oral, ity of (ALDACTONE) 14:00: DAILY, [place] tablet 12.5 00 First dose Me dical mg on [facility] 03/05/20 at 0900, Until Discontinu ed, Routine memantine 2020-0 Yes 10mg 10 mg, Univer s (NAMENDA) 4-20 Oral, ity of tablet 10 14:00: DAILY, [place] mg 00 First dose Medical on [facility] 03/05/20 at 0900, Until Discontinu ed, Routine
member services representative approving Restricted medication : MEGADC lisinopril 2020-0 2020- No 5mg 5 mg, Unive rs (PRINIVIL,Z 20 04-21 Oral, ity of ESTRIL) 14:00: 13:44 DAILY, [place] tablet 5 mg 00 :01 First dose Me dical on [facility] 03/05/20 at 0900, Until Discontinu ed, Routine isosorbide 2020-0 2020- No 30mg 30 mg, Univ ers mononitrate -20 04-20 Oral, ity of (IMDUR) 24 14:00: 14:20 DAILY, [place] hr tablet 00 :04 First dose Medi birdie [address] [facility] 03/05/20 at 0900, Until Discontinu ed, Routine ranolazine 2020-0 Yes 500mg 500 mg, Uni vers (RANEXA) 12 4-20 Oral, ity of hr tablet 13:00: Q12H, [place] 500 mg 00 First dose Medical on [facility] 03/05/20 at 0800, Until Discontinu ed, Routine metoprolol 2020-0 Yes 25mg 25 mg, Unive rs succinate 4-20 Oral, BID, ity of XL (TOPROL 13:00: First dose [place] XL) tablet 00 on [facility] 25 mg 03/05/20 at Branch 0800, Until Discontinu ed, Routine magnesium 2020-0 Yes 400mg 400 mg, Univ ers oxide 4-20 Oral, BID, ity of (MAG-OX 13:00: First dose [place] 400) tablet 00 on [facility] 400 mg 03/05/20 at Branch 0800, Until Discontinu ed, Routine aspirin 2020-0 Yes 81mg 81 mg, [facility] chewable 4-20 Oral, QAM ity of tablet 81 13:00: WITH [place] mg 00 BREAKFAST, Medical First dose Branch on [facility] 03/05/20 at 0800, Until Discontinu ed, Routine Sliding 2020-0 Yes Subcutaneo Univ ers Scale 4-20 us, AC+HS, ity of Insulin-Reg 12:30: First dose [place] ular + Fsbg 00 on [facility] Testing 03/05/20 at Branch 0730, Until Discontinu ed, Routine glipiZIDE 2020-0 2020- No 5mg 5 mg, Univer s (GLUCOTROL) 4-20 04-22 Oral, ity of tablet 5 mg 12:30: 19:41 BIDAC, [place] 00 :44 First dose Medical on [facility] Branch 03/05/20 at 0730, Until Discontinu ed, Routine glucagon 2020-0 Yes 1mg 1 mg, Univers (GLUCAGEN 4-20 Intramuscu ity of DIAGNOSTIC 03:02: lar, PRN, [place] KIT) 42 Starting Medical injection 1 [place] Branch mg 03/04/20 at 2202, Until Discontinu ed, ADAMA, Blood Glucose < or = 70 mg/dL and patient is unable to swallow or has mental changes. dextrose 50 2020-0 Yes 25mL 25 mL, Univ ers % in water 4-20 Slow IV ity of (D50W) 03:02: Push, PRN, [place] injection 42 Starting Medica l 25 mL [facility] 03/04/20 at 2202, Until Discontinu ed, ADAMA, Blood Glucose < or = 70 mg/dL and patient is unable to swallow or has mental status changes. furosemide 2020-0 Yes 40mg 40 mg, Unive rs (LASIX) 4-20 Oral, ity of tablet 40 03:00: QAM+PM, [place] mg 00 First dose Medical on [facility] 03/04/20 at 2200, Until Discontinu ed, Routine cyanocobala 2020-0 Yes 1000ug 1,000 mcg, Univers min 4-20 Subcutaneo ity of (VITAMIN 03:00: [place], Q24H, [place] B12) 00 First dose Medical injection on [facility] 1,000 mcg 03/04/20 at 2200, Until Discontinu ed, Routine heparin 2020-0 Yes 5000U 5,000 Univers (porcine) 4-20 Units, ity of injection 03:00: Subcutaneo [place] 5,000 Units 00 us, Q8H, Medi birdie First dose Branch on [place] 03/04/20 at 2200, Until Discontinu ed, Routine ondansetron 2019-0 Yes 4mg 4 mg, Slow Univers (ZOFRAN 4-20 IV Push, ity of (PF)) 02:34: Q6HPRN, [place] injection 4 40 Starting Medi birdie mg [facility] 03/04/20 at 2134, Until Discontinu ed, Routine, Nausea and Vomiting (N/V) traMADol 2019-0 2020- No 50mg 50 mg, Univer s (ULTRAM) 4-20 04-22 Oral, ity of tablet 50 02:34: 02:33 Q8HPRN, [place] mg 23 :23 Starting Medical [facility] 03/04/20 at 2134, Until Tu03/06/20 at 2133, Routine, Pain (scale 4-6) acetaminoph 2019-0 Yes 650mg 650 mg, Un mel en 4-20 Oral, ity of (TYLENOL) 02:34: Q6HPRN, [place] tablet 650 20 Starting Medic al mg [facility] 03/04/20 at 2134, Until Discontinu ed, Routine, Pain (scale 1-3) lisinopril 2020-0 Yes [id number] 5mg Take 1 [facility] 5 mg tablet 4-18 tablet by ity of 00:00: mouth [place] 00 daily. Medical Branch isosorbide 2020-0 Yes [id number] 30mg Take 1 [facility] mononitrate 4-18 tablet by ity of 30 mg 24 hr 00:00: mouth [place] tablet 00 daily. [facility] Branch lisinopril 2020-0 Yes [id number] 5mg Take 1 [facility] 5 mg tablet 4-18 tablet by ity of 00:00: mouth [place] 00 daily. [facility] Branch isosorbide 2020-0 Yes [id number] 30mg Take 1 [facility] mononitrate 4-18 tablet by ity of 30 mg 24 hr 00:00: mouth [place] tablet 00 daily. [facility] lisinopril 2020-0 2020- No [id number] 5mg Take 1 Univers 5 mg tablet 4-18 04-22 tablet by it y of 00:00: 00:00 mouth [place] 00 :00 daily. [facility] Branch isosorbide 2020-0 2020- No [id number] 30mg Take 1 [facility] mononitrate 4-18 04-22 [...] N ORAL 4-17 mouth. ity of 17:34: [place] [address] Medical Branch thiamine 2020-0 Yes 100mg Take 100 Univ ers (VITAMIN 4-17 mg by ity of B-1) 100 mg 17:34: mouth [place] tablet 27 daily. Medical Branch aspirin 81 2020-0 Yes 81mg Take 81 mg U nivers mg chewable 4-17 by mouth ity of tablet 17:34: daily. [place] [address] Medical Branch atorvastati 2019-0 Yes 40mg Take [...] N ORAL 4-17 mouth. ity of 17:34: [place] [address] Medical Branch thiamine 2020-0 Yes 100mg Take 100 Univ ers (VITAMIN 4-17 mg by ity of B-1) 100 mg 17:34: mouth [place] tablet 27 daily. Medical Branch aspirin 81 2020-0 Yes 81mg Take 81 mg U nivers mg chewable 4-17 by mouth ity of tablet 17:34: daily. [place] [address] Medical Branch atorvastati 2020-0 Yes 40mg Take 40 mg Univers n 40 mg 4-17 by mouth ity of tablet 17:34: at [place] [address] bedtime. Medical Branch NaCl 0.9% 2020-0 Yes [...] Until Discontinu ed, Routine furosemide 2020-0 Yes [id number] 40mg Take 1 [facility] 40 mg 4-17 tablet by ity of tablet 00:00: mouth [place] 00 every Medical morning Branch and evening. potassium 2020-0 Yes [id number] 20meq Take 20 [facility] chloride 20 4-17 mEq by ity of mEq packet 00:00: mouth [place] 00 daily. Medical Branch vitamin 2020-0 Yes [id number] 1000ug Take 1 U nivers B-12 1,000 4-17 tablet by ity of mcg tablet 00:00: mouth [place] 00 daily. Medical Branch furosemide 2020-0 Yes [id number] 40mg Take 1 [facility] 40 mg 4-17 tablet by ity of tablet 00:00: mouth [place] 00 every Medical morning Branch and evening. potassium 2020-0 Yes [id number] 20meq Take 20 [facility] chloride 20 4-17 mEq by ity of mEq packet 00:00: mouth [place] 00 daily. Medical Branch vitamin 2020-0 Yes [id number] 1000ug Take 1 U nivers B-12 1,000 4-17 tablet by ity of mcg tablet 00:00: mouth [place] 00 daily. Medical Branch furosemide 2020-0 2020- No [id number] 40mg Take 1 [facility] 40 mg 4-17 04-22 tablet by ity of tablet 00:00: 00:00 mouth [place] 00 :00 every Medical morning Branch and evening. potassium 2020-0 2020- No [id number] 20meq Take 20 [facility] chloride 20 4-17 04-22 mEq by ity o f mEq packet 00:00: 00:00 mouth [place] 00 :00 daily. Medical Branch vitamin 2020-0 2020- No [id number] 1000ug Take 1 [facility] B-12 1,000 4-17 04-22 tablet by ity of mcg tablet 00:00: 00:00 mouth [place] 00 :00 daily. Medical Branch cyanocobala 2020-0 Yes 1000ug 1,000 mcg, [facility] min 4-16 Subcutaneo ity of (VITAMIN 20:45: us, Q24H, [place] B12) 00 First dose Medical injection on [facility] Branch 1,000 mcg 03/01/20 at 1545, Until Discontinu ed, Routine isosorbide 2020-0 Yes 30mg 30 mg, Unive rs mononitrate 4-16 Oral, ity of (IMDUR) 24 14:00: DAILY, [place] hr tablet 00 First dose Medi birdie 30 mg on [facility] Branch 03/01/20 at 0900, Until Discontinu ed, Routine memantine 2019-0 Yes 10mg 10 mg, Univer s (NAMENDA) 4-16 Oral, ity of tablet 10 14:00: DAILY, [place] mg 00 First dose Medical on [facility]3] 03/01/20 at 0900, Until Discontinu ed, Routine
member services representative approving Restricted medication : MEGADC lisinopril 2020-0 Yes 5mg 5 mg, Univer s (PRINIVIL,Z -16 Oral, ity of ESTRIL) 14:00: DAILY, [place] tablet 5 mg 00 First dose Me dical on [facility] [...] mEq 00 :35 First dose Medical on [facility]3] 03/01/20 at 0900, Until Discontinu ed, Routine KCL 2020-0 Yes 40meq 40 mEq, Univers (KLOR-CON 16 Oral, BID, ity of M20) tablet 13:30: First dose [place] 40 mEq 00 on [facility] 03/01/20 at Branch 0830, Until Discontinu ed, Routine magnesium 2020-0 2020- No 2g 2 g, IV Univ ers sulfate in 03-01 Infusion, ity of water 2 03:30: 03:30 ONCE, 1 [place] gram/50 mL 00 :00 dose, Thu [facility] birdie (4 %) 2 g 02/29/20 at [facility] piggyback 2230 metoprolol 2020-0 2020- No 5mg 5 mg, Slow Univers (LOPRESSOR) 03-01 IV Push, ity of injection 5 03:30: 03:37 ONCE, 1 [place] mg 00 :00 dose, [facility] 02/29/20 at Branch 2230, ADAMA glipiZIDE 2020-0 Yes 5mg 5 mg, Univers (GLUCOTROL) 16 Oral, ity of tablet 5 mg 02:45: BIDAC, [place] 00 First dose Medical on [facility] 02/29/20 at 2145, Until Discontinu ed, [...] [place] 40 mEq 00 :00 dose, [facility] Medical 02/29/20 at Branch 2000, Routine acetaminoph 0 Yes 650mg 650 mg, Un mel en 02-28 Oral, ity of (TYLENOL) 23:57: Q6HPRN, [place] tablet 650 25 Starting Medic al mg [...] 02-14 by mouth ity of 00:00: daily. [address] donepezil 5 2019-0 2020- No 5mg Take 5 mg Univers mg tablet 02-1408 by mouth ity o f 00:00: 00:00 daily. [place] 00 :00 [facility] nitroglycer 2019-0 2020- No DISSOLVE U nivers [...] by mouth ity of tablet 23:00: daily. [place] [address] Medical Branch atorvastati 2020-0 Yes 40mg Take 40 mg Univers n 40 mg 3-03 by mouth ity of tablet 23:00: at [place] [address] bedtime. Medical Branch NaCl 0.9% 2020-0 Yes [...] 3-03 mouth. ity of Vitamin D3, 23:00: [place] 2,000 unit 52 Medical capsule Branch metoprolol 2020-0 Yes 12.5mg Take 12.5 Univers tartrate 3-03 mg by ity of 12.5 mg 23:00: mouth 2 [place] 52 (two) Medical times Branch daily. MULTIVITAMI 2020-0 Yes Take by Un mel N ORAL 3-03 mouth. ity of 23:00: [place] [address] Medical Branch thiamine 2020-0 Yes 100mg Take 100 Univ ers (VITAMIN 3-03 mg by ity of B-1) 100 mg 23:00: mouth [place] tablet 52 daily. Medical Branch aspirin 81 2020-0 Yes 81mg Take 81 mg U nivers mg chewable 3-03 by mouth ity of tablet 23:00: daily. [place] [address] Medical Branch atorvastati 2020-0 Yes 40mg Take 40 mg Univers n 40 mg 3-03 by mouth ity of tablet 23:00: at [place] [address] bedtime. Medical Branch NaCl 0.9% 2020-0 Yes [...] N ORAL 3-03 mouth. ity of 23:00: [place] [address] Medical Branch thiamine 2020-0 Yes 100mg Take 100 Univ ers (VITAMIN 3-03 mg by ity of B-1) 100 mg 23:00: mouth [place] tablet 52 daily. Medical Branch aspirin 81 2020-0 Yes 81mg Take 81 mg U nivers mg chewable 3-03 by mouth ity of tablet 23:00: daily. [place] [address] Medical Branch atorvastati 2020-0 Yes 40mg Take 40 mg Univers n 40 mg 3-03 by mouth ity of tablet 23:00: at [place] 52 bedtime. Medical Branch NaCl 0.9% 2020-0 [...] 3-03 mouth. ity of Vitamin D3, 23:00: [place] 2,000 [place] [address] Medical capsule Branch metoprolol 2020-0 Yes 12.5mg Take 12.5 Univers tartrate 3-03 mg by ity of 12.5 mg 23:00: mouth 2 [place] 52 (two) Medical times Branch daily. MULTIVITAMI 2020-0 Yes Take by Un mel N ORAL 3-03 mouth. ity of 23:00: [place] [address] Medical Branch thiamine 2020-0 Yes 100mg Take 100 Univ ers (VITAMIN 3-03 mg by ity of B-1) 100 mg 23:00: mouth [facility] 52 daily. Medical Branch aspirin 81 2020-0 Yes 81mg Take 81 mg U nivers mg chewable 3-03 by mouth ity of tablet 23:00: daily. [place] [address] Medical Branch atorvastati 2020-0 Yes 40mg Take 40 mg Univers n 40 mg 3-03 by mouth ity of tablet 23:00: at [place] [address] bedtime. Medical Branch NaCl 0.9% 2020-0 Yes [...] First dose [place] mg 00 on [facility] 01/16/20 at Branch 2100, Until Discontinu ed, Routine ranolazine 2019-0 2020- No [id number] 500mg Take 1 [facility] 500 mg 12 01-16 04-03 tablet by ity of hr tablet 00:00: 04:59 mouth [place] 00 :00 every 12 Medical (twelve) Branch hours for 30 days. ranolazine 2019-0 2020- No [id number] 500mg Take 1 [facility] 500 mg 12 - 04-03 tablet by ity of hr tablet 00:00: 04:59 mouth [place] 00 :00 every 12 Medical (twelve) Branch hours for 30 days. ranolazine 2020-0 2020- No [id number] 500mg Take 1 [facility] 500 mg 01-16 tablet by ity of hr tablet 00:00: 04:59 mouth [place] 00 :00 every 12 Medical (twelve) Branch hours for 30 days. ranolazine 2020-0 2020- No [id number] 500mg Take 1 [facility] 500 mg 01-16 tablet by ity of hr tablet 00:00: 04:59 mouth [place] 00 :00 every 12 Medical (twelve) Branch hours for 30 days. ranolazine 2020-0 Yes 500mg 500 mg, Uni vers (RANEXA) 12 01-15 Oral, ity of hr tablet 22:30: Q12H, [place] 500 mg 00 First dose Medical on [facility] 01/16/20 at 1630, Until Discontinu ed, Routine insulin 2020-0 Yes 30U 30 Units, Unive rs glargine 01-15 Subcutaneo ity o f (LANTUS 15:00: [place], DAILY, [place] U-100) 00 First dose Medical injection on [facility] 30 Units 01/16/20 at 0900, Until Discontinu ed furosemide 2020-0 Yes 40mg 40 mg, Unive rs (LASIX) 01-15 Oral, ity of tablet 40 15:00: DAILY, [place] mg 00 First dose Medical on [facility] 01/16/20 at 0900, Until Discontinu ed, Routine aspirin 2020-0 Yes 81mg 81 mg, Univers chewable 01-15 Oral, ity of tablet 81 15:00: DAILY, [place] mg 00 First dose Medical on [facility] 01/16/20 at 0900, Until Discontinu ed, Routine metoprolol 2020-0 Yes 12.5mg 12.5 mg, U nivers tartrate -02 Oral, BID, ity o f (LOPRESSOR) 14:00: First dose [place] tablet 12.5 00 on [facility] mg 01/16/20 at Branch [...] Push, ity of mg 07:54: 07:53 Q6HPRN, [place] 55 :55 Starting Medical 01/16/20 Branch at [...] 3-02 Oral, ity of (TYLENOL) 07:54: Q6HPRN, [place] tablet 650 44 Starting Medic al [...] 01/15/20 at 2345, ADAMA furosemide 2018-11 Yes [id number] 40mg Take 1 Univers 40 mg 0-26 tablet by ity of tablet 00:00: mouth [place] 00 daily. Medical Branch furosemide 2018-11 Yes [id number] 40mg Take 1 Univers 40 mg 0-26 tablet by ity of tablet 00:00: mouth [place] 00 daily. Medical Branch furosemide 2018-11 Yes [id number] 40mg Take 1 Univers 40 mg 0-26 tablet by ity of tablet 00:00: mouth [place] 00 daily. Medical Branch furosemide 2018-11 Yes [id number] 40mg Take 1 Univers 40 mg 0-26 tablet by ity of tablet 00:00: mouth [place] 00 daily. Medical Branch furosemide 2018-11 2020- No [id number] 40mg Take 1 Univers 40 mg 0-26 04-17 tablet by ity of tablet 00:00: 00:00 mouth [place] 00 :00 daily. Medical Branch magnesium 2019-1 Yes [id number] 400mg Take 400 Univers oxide 420 0-23 mg by ity of mg Tab 00:00: mouth [place] 00 daily. Medical Branch magnesium 2019-1 Yes [id number] 400mg Take 400 Univers oxide 420 0-23 mg by ity of mg Tab 00:00: mouth [place] 00 daily. Medical Branch magnesium 2019-1 Yes [id number] 400mg Take 400 Univers oxide 420 0-23 mg by ity of mg Tab 00:00: mouth [place] 00 daily. Medical Branch magnesium 2019-1 Yes [id number] 400mg Take 400 Univers oxide 420 0-23 mg by ity of mg Tab 00:00: mouth [place] 00 daily. Medical Branch magnesium 2019-1 Yes [id number] 400mg Take 400 Univers oxide 420 0-23 mg by ity of mg Tab 00:00: mouth [place] 00 daily. [facility] Branch magnesium 2019-1 Yes [id number] 400mg Take 400 Univers oxide 420 0-23 mg by ity of mg Tab 00:00: mouth [place] 00 daily. [facility] Branch magnesium 2019- 2020- No [id number] 400mg Take 400 Univers oxide 420 0-23 04-22 mg by ity of mg Tab 00:00: 00:00 mouth [place] 00 :00 daily. [facility] Insulin 2019-0 Yes [id number] 30U inject 30 Univers Glargine 9-11 Units ity of 100 unit/mL 00:00: under the [place] (3 mL) 00 skin every Medical injection morning. Branch Insulin 2019-0 Yes [id number] 30U inject 30 Univers Glargine 9-11 Units ity of 100 unit/mL 00:00: under the [place] (3 mL) 00 skin every Medical injection morning. Branch Insulin 2019-0 Yes [id number] 30U inject 30 Univers Glargine 9-11 Units ity of 100 unit/mL 00:00: under the [place] (3 mL) 00 skin every Medical injection morning. Branch Insulin 2019-0 Yes [id number] 30U inject 30 Univers Glargine 9-11 Units ity of 100 unit/mL 00:00: under the [place] (3 mL) 00 skin every Medical injection morning. Branch Insulin 2019-0 Yes [id number] 30U inject 30 Univers Glargine 9-11 Units ity of 100 unit/mL 00:00: under the [place] (3 mL) 00 skin every Medical injection morning. Branch Insulin Yes [id number] 30U inject 30 Univers Glargine 9-11 Units ity of 100 unit/mL 00:00: under the [place] (3 mL) 00 skin every Medical injection morning. Branch Insulin Yes [id number] 30U inject 30 Univers Glargine 9-11 Units ity of 100 unit/mL 00:00: under the [place] (3 mL) 00 skin every Medical injection morning. Branch Insulin 2020- No [id number] 30U inject 30 Univers Glargine 9-11 04-22 [...] mg under ity of 15:26: the skin. [place] [address] Medical Branch Cholecalcif Yes Take by Un mel ann, 5-10 mouth. ity of Vitamin D3, 15:26: [place] 2,000 unit 43 Medical capsule Branch metoprolol Yes 12.5mg Take 12.5 Univers tartrate 5-10 mg by ity of 12.5 mg 15:26: mouth 2 [place] 43 (two) Medical times Branch daily. MULTIVITAMI Yes Take by Un mel N ORAL 5-10 mouth. ity of 15:26: [place] [address] Medical Branch thiamine Yes 100mg Take 100 Univ ers (VITAMIN 5-10 mg by ity of B-1) 100 mg 15:26: mouth [place] tablet 43 daily. Medical Branch aspirin 81 Yes 81mg Take 81 mg U nivers mg chewable 5-10 by mouth ity of tablet 15:26: daily. [place] [address] Medical Branch atorvastati Yes 40mg Take 40 mg Univers n 40 mg 5-10 by mouth ity of tablet 15:26: at [place] [address] bedtime. Medical Branch furosemide Yes 40mg Take 40 mg U nivers 40 mg 5-10 by mouth ity of tablet 15:26: daily. [place] [address] Medical Branch NaCl 0.9% 0 Yes 10mL [...] mg under ity of 15:26: the skin. [place] [address] Medical Branch Cholecalcif 0 Yes Take by Un mel ann, 5-10 mouth. ity of Vitamin D3, 15:26: [place] 2,000 unit Medical capsule Branch metoprolol Yes 12.5mg Take 12.5 Univers tartrate 5-10 mg by ity of 12.5 mg 15:26: mouth 2 [place] [address] (two) Medical times Branch daily. MULTIVITAMI 0 Yes Take by Un mel N ORAL 5-10 mouth. ity of 15:26: [place] [address] Medical Branch thiamine 0 Yes 100mg Take 100 Univ ers (VITAMIN 5-10 mg by ity of B-1) 100 mg 15:26: mouth [place] tablet 43 daily. Medical Branch aspirin 81 Yes 81mg Take 81 mg U nivers mg chewable 5-10 by mouth ity of tablet 15:26: daily. [place] [address] Medical Branch atorvastati 0 Yes 40mg Take 40 mg Univers n 40 mg 5-10 by mouth ity of tablet 15:26: at [place] [address] bedtime. Medical Branch furosemide 0 Yes 40mg Take 40 mg U nivers 40 mg 5-10 by mouth ity of tablet 15:26: daily. [place] [address] Medical Branch NaCl 0.9% 0 Yes 10mL Inject 10 Uni vers (NS) Soln 5-10 mL ity of 10 mL with 15:26: intravenou [place] sodium 43 sly once Medical chloride now. Branch 2.5 mEq/mL SolP 17.125 mEq insulin 2019-0 Yes [id number] 4U inject 4 U nivers lispro, 5-10 Units ity of human, 100 00:00: under the [place] unit/mL 00 skin 3 Medical injection (three) Branch times daily before meals. insulin 2018-0 Yes [id number] 4U inject 4 U nivers lispro, 5-10 Units ity of human, 100 00:00: under the [place] unit/mL 00 skin 3 Medical injection (three) Branch times daily before meals. insulin 2018-0 Yes [id number] 4U inject 4 U nivers lispro, 5-10 Units ity of human, 100 00:00: under the [place] unit/mL 00 skin 3 Medical injection (three) Branch times daily before meals. insulin 2018-0 Yes [id number] 4U inject 4 U nivers lispro, 5-10 Units ity of human, 100 00:00: under the [place] unit/mL 00 skin 3 Medical injection (three) Branch times daily before meals. insulin 2018-0 Yes [id number] 4U inject 4 U nivers lispro, 5-10 Units ity of human, 100 00:00: under the [place] unit/mL 00 skin 3 Medical injection (three) Branch times daily before meals. insulin 2018-0 Yes [id number] 4U inject 4 U nivers lispro, 5-10 Units ity of human, 100 00:00: under the [place] unit/mL 00 skin 3 Medical injection (three) Branch times daily before meals. Insulin 2018-0 Yes [id number] 18U inject Uni vers Glargine 5-10 18-24 ity of 100 unit/mL 00:00: Units [place] (3 mL) 00 under the Medical injection skin every Bran ch morning. insulin 2018-0 Yes [id number] 4U inject 4 U nivers lispro, 5-10 Units ity of human, 100 00:00: under the [place] unit/mL 00 skin 3 Medical injection (three) Branch times daily before meals. insulin 2018-0 Yes [id number] 4U inject 4 U nivers lispro, 5-10 Units ity of human, 100 00:00: under the [place] unit/mL 00 skin 3 Medical injection (three) Branch times daily before meals. insulin 2018-0 Yes [id number] 4U inject 4 U nivers lispro, 5-10 Units ity of human, 100 00:00: under the [place] unit/mL 00 skin 3 Medical injection (three) Branch times daily before meals. insulin 2018- Yes [id number] 4U inject 4 U nivers lispro, 5-10 Units ity of human, 100 00:00: under the [place] unit/mL 00 skin 3 Medical injection (three) Branch times daily before meals. insulin 2018- Yes [id number] 4U inject 4 U nivers lispro, 5-10 Units ity of human, 100 00:00: under the [place] unit/mL 00 skin 3 Medical injection (three) Branch times daily before meals. insulin 2019- No [id number] 4U inject 4 Univers lispro, 5-10 05-07 Units ity of human, 100 00:00: 00:00 under the [place] unit/mL 00 :00 skin 3 Medical injection (three) Branch times daily before meals. insulin 2019- No [id number] 4U inject 4 Univers lispro, 5-10 05-07 Units ity of human, 100 00:00: 00:00 under the [place] unit/mL 00 :00 skin 3 Medical injection (three) Branch times daily before meals. Insulin 2019- No [id number] 18U inject Un mel Glargine 03-25- 18-24 [...] capsule Common Chloride Chloride Mill[place] with food [facility] Tylenol # 3 Tylenol # 3 Yes Anneliese one tab Common Millender [facility] Vitamin D-3 Vitamin D-3 Yes Anneliese 2 capsule Common Millender [facility] Humalog Humalog Yes Anneliese as Common Millender directed [facility] Aspir-Low Aspir-Low Yes Anneliese 1 tablet Common Millender [facility] Namzaric Namzaric Yes Anneliese 1 Common Millender [facility] Zyprexa Zyprexa Yes Anneliese 1 tablet Comm on Millender [facility] Vitamin B-1 Vitamin B-1 Yes Anneliese 1 tablet Common Millender [facility] Multivitami Multivitami Yes Anneliese as Common n n Millender directed [facility] Lantus Lantus Yes Anneliese as Common Millender directed [facility] Lasix Lasix Yes Anneliese 1 tablet Common Millender [facility] Isosorbide Isosorbide Yes Naneliese 1 tablet Common Mononitrate Mononitrate [facility] in the [facility] morning [facility] Lyrica Lyrica Yes Anneliese 1 capsule Commo n Millender [facility] Immunizations Ordered Filled Immunization Date Status Comments [facility] e Immunization Name Name SARS-COV-2 COVID-19 2021-09-16 Completed Unive rsity of MODERNA VACCINE 00:00:00 [facility] SARS-COV-2 COVID-19 2021-09-16 Completed Unive rsity of MODERNA VACCINE 00:00:00 [facility] SARS-COV-2 COVID-19 2021-09-16 Completed Unive rsity of MODERNA VACCINE 00:00:00 [facility] SARS-COV-2 COVID-19 2021-09-16 Completed Unive rsity of MODERNA VACCINE 00:00:00 [facility] SARS-COV-2 COVID-19 2021-08-17 Completed Unive rsity of MODERNA VACCINE 00:00:00 [facility] Influenza High Dose 2021-08-17 Completed Unive rsity of 00:00:00 [facility] SARS-COV-2 COVID-19 2021-08-17 Completed Unive rsity of MODERNA VACCINE 00:00:00 [facility] Influenza High Dose 2021-08-17 Completed Unive rsity of 00:00:00 [facility] SARS-COV-2 COVID-19 2021-08-17 Completed Unive rsity of MODERNA VACCINE 00:00:00 [facility] Influenza High Dose 2021-08-17 Completed Unive rsity of 00:00:00 [facility] SARS-COV-2 COVID-19 2021-08-17 Completed Unive rsity of MODERNA VACCINE 00:00:00 [facility] Influenza High Dose 2021-08-17 Completed Unive rsity of 00:00:00 [facility] Zoster(Zostavax)( 2020-09-14 Completed Unive rsity of ingles) 00:00:00 [facility] Zoster(Zostavax)( 2020-09-14 Completed Unive rsity of ingles) 00:00:00 [facility] Zoster(Zostavax)( 2020-09-14 Completed Unive rsity of ingles) 00:00:00 [facility] Zoster(Zostavax)( 2020-09-14 Completed Unive rsity of ingles) 00:00:00 [facility] Influenza High Dose 2020-07-13 Completed Unive rsity of 00:00:00 [facility] Influenza High Dose 2020-07-13 Completed Unive rsity of 00:00:00 [facility] Influenza High Dose 2020-07-13 Completed Unive rsity of 00:00:00 [facility] Influenza High Dose 2020-07-13 Completed Unive rsity of 00:00:00 [facility] Influenza High Dose 2019-09-15 Completed Unive rsity of 00:00:00 [facility] Influenza High Dose 2019-09-15 Completed Unive rsity of 00:00:00 [facility] Influenza High Dose 2019-09-15 Completed Unive rsity of 00:00:00 [facility] Influenza High Dose 2019-09-15 Completed Unive rsity of 00:00:00 [facility] Influenza Virus 2018-09-09 Completed Universit y of Vaccine 00:00:00 [facility] Influenza Virus 2018-09-09 Completed Universit y of Vaccine 00:00:00 [facility] Influenza Virus 2018-09-09 Completed Universit y of Vaccine 00:00:00 [facility] Influenza Virus 2018-09-09 Completed Universit y of Vaccine 00:00:00 [facility] Influenza Virus 2018-09-09 Completed Universit y of Vaccine 00:00:00 [facility] Influenza Virus 2018-09-09 Completed Universit y of Vaccine 00:00:00 [facility] Influenza Virus 2018-09-09 Completed Universit y of Vaccine 00:00:00 [facility] Influenza Virus 2018-09-09 Completed Universit y of Vaccine 00:00:00 [facility] Influenza Virus 2018-09-09 Completed Universit y of Vaccine 00:00:00 [facility] Influenza Virus 2018-09-09 Completed Universit y of Vaccine 00:00:00 [facility] Influenza Virus 2018-09-09 Completed Universit y of Vaccine 00:00:00 [facility] Influenza Virus 2018-09-09 Completed Universit y of Vaccine 00:00:00 [facility] Influenza Virus 2018-09-09 Completed Universit y of Vaccine 00:00:00 [facility] Influenza Virus 2018-09-09 Completed Universit y of Vaccine 00:00:00 [facility] Influenza Virus 2018-09-09 Completed Universit y of Vaccine 00:00:00 [facility] Influenza Virus 2018-09-09 Completed Universit y of Vaccine 00:00:00 [facility] Influenza Virus 2018-09-09 Completed Universit y of Vaccine 00:00:00 [facility] Influenza Virus 2018-09-09 Completed Universit y of Vaccine 00:00:00 [facility] Influenza Virus 2018-09-09 Completed Universit y of Vaccine 00:00:00 [facility] Influenza Virus 2018-09-09 Completed Universit y of Vaccine 00:00:00 [facility] Influenza Virus 2018-09-09 Completed Universit y of Vaccine 00:00:00 [facility] Influenza Virus 2018-09-09 Completed Universit y of Vaccine 00:00:00 [facility] Pneumococcal 2016-11-02 Completed University o f Polysaccharide, 00:00:00 [facility] PPSV23 (PNEUMOVAX) [place] Pneumococcal 2016-11-02 Completed University o f Polysaccharide, [...] ical PPSV23 (PNEUMOVAX) Branch Pneumococcal 2016-11-02 Completed [place] o f Polysaccharide, 00:00:00 [place] Med ical PPSV23 (PNEUMOVAX) Branch Pneumococcal 2016-11-02 Completed University o f Polysaccharide, 00:00:00 [place] Med ical PPSV23 (PNEUMOVAX) Branch Pneumococcal 2016-11-02 Completed University o f Polysaccharide, 00:00:00 [place] Med ical PPSV23 (PNEUMOVAX) Branch Pneumococcal 2016-11-02 Completed [place] o f Polysaccharide, 00:00:00 [place] Med ical PPSV23 (PNEUMOVAX) Branch Vital Signs Vital Name Observation Time Observation Value Comments Source Systolic blood 2022-03-01 16:36:00 143 mm[Hg] Univer sity of pressure [facility] Diastolic blood 2022-03-01 16:36:00 80 mm[Hg] Unive rsity of [facility] Heart rate 2022-03-01 16:36:00 98 /min [facility] Respiratory rate 2022-03-01 16:36:00 16 /min [facility] [place] [facility] Oxygen saturation in 2022-03-01 16:36:00 97 /min [facility] Arterial blood by [place] Pulse oximetry Branch Body temperature 2022-03-01 11:42:00 36.94 Priyanka [facility] [place] [facility] Body height 2022-03-01 11:42:00 170.2 cm [facility] Body weight 2022-03-01 11:42:00 77.111 kg [facility] BMI 2022-03-01 11:42:00 26.63 kg/m2 [facility] Systolic blood 2021-11-02 17:17:00 109 mm[Hg] Univer sity of [facility] Diastolic blood 2021-11-02 17:17:00 67 mm[Hg] Unive rsity of [facility] Heart rate 2021-11-02 17:17:00 84 /min [facility] Body temperature 2021-11-02 17:17:00 36.44 Priyanka [facility] [place] [facility] Respiratory rate 2021-11-02 17:17:00 18 /min [facility] [place] [facility] Oxygen saturation in 2021-11-02 17:17:00 95 /min University of Arterial blood by [place] [employer] birdie Pulse oximetry Branch Body weight 2021-11-02 09:17:00 79.969 kg Universi ty of [place] [facility] BMI 2021-11-02 09:17:00 27.61 kg/m2 Universi ty [facility] [place] [facility] Body height 2021-10-31 05:46:00 170.2 cm Universi ty of [place] [facility] Systolic blood 2021-04-25 22:36:00 118 mm[Hg] Univer sity of pressure [place] [facility] Diastolic blood 2021-04-25 22:36:00 70 mm[Hg] Unive rsity of pressure [place] [facility] Heart rate 2021-04-25 22:36:00 68 /min Universi ty of [place] [facility] Respiratory rate 2021-04-25 22:36:00 18 /min Univ ersity of [place] [facility] Oxygen saturation in 2021-04-25 22:36:00 99 /min University of Arterial blood by [place] [employer] birdie Pulse oximetry Branch Body temperature 2021-04-25 [...] /min University of Arterial blood by [place] [employer] birdie Pulse oximetry Branch Heart rate 2020-06-26 [...] 98 /min University of Arterial blood by [facility] Pulse oximetry Branch Heart rate [...] 97 /min University of Arterial blood by [facility] Pulse oximetry Branch Body temperature [...] 97 /min University of Arterial blood by [facility] Pulse oximetry Branch Body temperature [...] 02:31:00 72 mm[Hg] Unive rsity of pressure [facility] Branch Heart rate 2020-03-24 02:31:00 69 /min Universi ty of [place] [facility] [place] Body temperature 2020-03-24 02:31:00 36.39 Priyanka Univ ersity of [facility] Branch Respiratory rate 2020-03-24 02:31:00 18 /min Univ ersity of [facility] Branch Oxygen saturation in 2020-03-24 02:31:00 97 /min University of Arterial blood by [facility] Pulse oximetry Branch Systolic blood 2020-03-23 21:35:00 100 mm[Hg] Univer sity of pressure [place] [facility] Diastolic blood 2020-03-23 21:35:00 59 mm[Hg] Unive rsity of pressure [place] [facility] Heart rate 2020-03-23 21:35:00 79 /min Universi ty of [facility] Body temperature 2020-03-23 21:35:00 36.78 Priyanka Univ ersity of [facility] Branch Respiratory rate 2020-03-23 21:35:00 18 /min Univ ersity of [place] [facility] Oxygen saturation in 2020-03-23 21:35:00 99 /min University of Arterial blood by [facility] Pulse oximetry Branch Body weight [...] 98 /min University of Arterial blood by [facility] Pulse oximetry Branch Body temperature [...] 95 /min University of Arterial blood by [facility] Pulse oximetry Branch Body height [...] Branch Body temperature 2020-03-02 15:49:00 37.06 Priyanka [facility] Respiratory rate 2020-03-02 15:49:00 19 /min [facility] [place] [facility] Oxygen saturation in 2020-03-02 15:49:00 96 /min University of Arterial blood by [facility] Pulse oximetry Branch Body height 2020-03-01 00:54:00 170.2 cm Universi ty of [facility] Body weight 2020-03-01 00:54:00 76.975 kg Universi ty of [facility] BMI 2020-03-01 00:54:00 26.58 kg/m2 Universi ty of [facility] Systolic blood 2020-01-17 21:08:00 116 mm[Hg] Univer sity of pressure [facility] Diastolic blood 2020-01-17 21:08:00 78 mm[Hg] [facility] Heart rate 2020-01-17 21:08:00 88 /min Universi ty [facility] [place] [facility] Body temperature 2020-01-17 21:08:00 36.72 Priyanka [facility] Respiratory rate 2020-01-17 21:08:00 18 /min [facility] Oxygen saturation in 2020-01-17 21:08:00 98 /min University of Arterial blood by [facility] Pulse oximetry Branch Body height 2020-01-16 06:21:00 172.7 cm Universi ty [facility] [place] [facility] Body weight 2020-01-16 04:35:00 83.462 kg Universi ty [facility] [place] [facility] BMI 2020-01-16 04:35:00 27[facility]98 [facility] Procedure Date / Time Performing Clinician Source Performed XR LUMBAR SPINE 2 VW 2022-03-01 14:18:00 Angelika Aguilar [facility] EXTERNAL PROVIDER RECORDS 2021-11-19 06:01:00 Doctor Unassigned, [facility] [place] [facility] POCT GLUCOSE (AUTOMATED) 2021-11-02 22:49:00 Aida Shah [facility] POCT GLUCOSE (AUTOMATED) 2021-11-02 17:06:00 Aida Shah [facility] POCT GLUCOSE (AUTOMATED) 2021-11-02 13:30:00 Aida Shah [facility] TROPONIN I 2021-11-02 09:29:00 Alexandra Hdz [facility] BASIC METABOLIC PANEL 2021-11-02 09:29:00 [facility] (NA, K, CL, CO2, GLUCOSE, Medica l Branch BUN, CREATININE, CA) CBC WITH DIFF 2021-11-02 09:29:00 [facility] N-TERMINAL PRO-BNP 2021-11-02 09:29:00 Alexandra Hdz [facility] POCT GLUCOSE (AUTOMATED) 2021-11-02 01:27:00 Aida Shah [facility] POCT GLUCOSE (AUTOMATED) 2021-11-01 17:37:00 Aida Shah [facility] POCT GLUCOSE (AUTOMATED) 2021-11-01 13:40:00 [facility] 2021-11-01 01:10:00 Aida Shah [facility] POCT GLUCOSE (AUTOMATED) 2021-10-31 22:28:00 [facility] ([facility]OMATED) 2021-10-31 17:29:00 Martha Drake [facility] TROPONIN I 2021-10-31 16:25:00 Alexandra Hdz [facility] TRANSTHORACIC ECHO (TTE) 2021-10-31 15:53:00 Alexandra Hdz [facility] COMPLETE W/ CONTRAST Medical [facility] POCT GLUCOSE (AUTOMATED) 2021-10-31 13:39:00 Martha Drake Un [facility] TROPONIN I 2021-10-31 10:08:00 [facility] BASIC METABOLIC PANEL 2021-10-31 10:08:00 [facility] (NA, K, CL, CO2, GLUCOSE, Medica l Branch BUN, CREATININE, CA) LIPID PANEL ([id number])(TOTAL 2021-10-31 10:08:00 Alexandra Hdz [facility] CHOLESTEROL, [facility] TRIGLYCERIDES, HDL) CBC WITH DIFF 2021-10-31 10:08:00 [facility] 2021-10-31 10:08[facility]00 [facility] N-TERMINAL PRO-BNP 2021-10-31 10:08:00 Alexandra Hdz [facility] TROPONIN I 2021-10-31 06:17:00 [facility]W 2021-10-31 01:30:56 Martha Drake [facility] LIPASE 2021-10-31 01:25:00 Martha Drake [facility] TROPONIN I 2021-10-31 01:25:00 Martha Drake [facility] COMP. METABOLIC PANEL 2021-10-31 01:25:00 Martha Drake [facility] ([id number]) [facility] Branch CBC WITH DIFF 2021-10-31 01:25:00 Martha Drake [facility] GLYCOSYLATED HEMOGLOBIN 2021-10-31 01:25[facility] PROTHROMBIN TIME / INR 2021-10-31 01:25:00 Martha Drake [facility] ACTIVATED PARTIAL 2021-10-31 01:25:00 [facility] N-[facility]MINAL PRO-BNP 2021-10-31 01:25:00 Martha Drake [facility] COVID-19 (ID NOW RAPID 2021-10-31 01:25:00 Martha Drake [facility] TESTING) Medical Branch LAB ONLY COVID 2021-10-31 01:25:00 Martha Drake [facility] INTERPRETATION [facility] HB ECG ROUTINE & RHYTHM 2021-10-31 01:20:03 Martha Drake [facility] STRIP [facility] URINALYSIS 2021-04-25 21:01:00 [facility]ly [facility] XR LUMBAR SPINE 2 VW 2021-04-25 18:41:00 Nallely Zhao [facility] XR HIPS 2 VW LEFT 2021-04-25 18:41:00 [facility]ly [facility] CONSENT/REFUSAL FOR 2021-04-25 15:43:06 Doctor Unacassie, [facility] DI[facility]NOS[facility] CERVICAL SPINE WO 2020-06-26 09:35:01 NandinineMartha [facility] CONTRAST [facility] CT LUMBAR SPINE WO 2020-06-26 09:35:01 [facility] CT THORACIC SPINE WO 2020-06-26 09:35:01 [facility] UNILATERAL DUPLEX SCAN OF 2020-05-24 14:53:40 [facility] XR ANKLE 3+ VW LEFT 2020-05-24 13:22:26 [facility]it [facility] HEPATIC FUNCTION PANEL 2020-05-24 13:13:00 Charanjit Heck [facility] ([id number]) (ALB,T.PRO,BILI Medical Branch T,BU/BC,ALT,AST,ALK PHOS) BASIC METABOLIC PANEL 2020-05-24 13:13:00 Charanjit Heck [facility] (NA, K, CL, CO2, GLUCOSE, Medica l Branch BUN, CREATININE, CA) CBC WITH DIFFERENTIAL 2020-05-24 13:13:00 Charanjit Heck [facility] PROTHROMBIN TIME / INR 2020-05-24 13:13:00 Charanjit Heck [facility] ACTIVATED PARTIAL 2020-05-24 13:13:00 Charanjit Heck [facility] NOTICE OF PRIVACY 2020-05-24 11:38:26 Doctor Blaise, [facility] PRACTICES [facility] CONSENT/REFUSAL FOR 2020-05-24 11:35:52 Doctor Blaise, [facility] DIAGNOSIS [facility] T[facility] POCT GLUCOSE (AUTOMATED) 2020-03-23 22:32:00 CharismaLuanazra Horn [facility] POCT GLUCOSE (AUTOMATED) 2020-03-23 18:07:00 Jamel Flores Justina [facility] POCT GLUCOSE (AUTOMATED) 2020-03-23 14:57:00 Jamel Flores [facility] ECHO ROUTINE W/DOPPLER 2020-03-23 13:33:57 Tereza Cano [facility] EKG-12 LEAD 2020-03-23 12:56:59 Charisma [facility] MAGNESIUM 2020-03-23 11:15:00 Jerome [facility] TROPONIN I 2020-03-23 11:15:00 [facility] BASIC METABOLIC PANEL 2020-03-23 11:15:00 [facility] (NA, K, CL, CO2, GLUCOSE, Medica l Branch BUN, CREATININE, CA) PROTHROMBIN TIME / INR 2020-03-23 11:15:00 Tereza Cano [facility] ACTIVATED PARTIAL 2020-03-23 11:15:[address] [facility] EKG-12 LEAD 2020-03-23 07:51:19 [facility]UM 2020-03-23 05:55:00 [facility]OP[facility] 2020-03-23 05:55:00 [facility] BASIC METABOLIC PANEL 2020-03-23 05:55:00 Jerome [facility] (NA, K, CL, CO2, GLUCOSE, Medica l Branch BUN, CREATININE, CA) LIPID PANEL ([id number])(TOTAL 2020-03-23 05:55:00 Tereza Cano [facility] TRIGLYCERIDES, HDL) PROTHROMBIN TIME / INR 2020-03-23 02:55:00 Sallie Eckert [facility] ACTIVATED PARTIAL 2020-03-23 02:55:[address] [facility] XR CHEST 2 VW 2020-03-23 01:52:37 Danielle [facility] CORONAVIRUS COVID-19 2020-03-23 00:50:00 Esteban Singletary [facility] FERRITIN SERUM 2020-03-22 23:36:00 Jerome [facility] TROPONIN I 2020-03-22 23:36:00 Danielle [facility] COMP. METABOLIC PANEL 2020-03-22 23:36:00 Esteban Singletary [facility] ([id number]) [facility] IRON PANEL 2020-03-22 23:36:00 Jerome [facility] CBC WITH DIFFERENTIAL 2020-03-22 23:36:00 Danielle [facility] N-TERMINAL PRO-BNP 2020-03-22 23:36:00 Esteban Singletary [facility] EKG-12 LEAD 2020-03-22 23:08:53 Danielle [facility] EKG-12 LEAD 2020-03-22 23:08:15 Danielle [facility] XR CHEST 1 VW 2020-03-21 20:42:35 Myles Harry [facility] LACTIC ACID WHOLE BLOOD 2020-03-21 20:38:00 Myles Harry [facility] LIPASE 2020-03-21 20:19:00 Myles Harry [facility] TROPONIN I 2020-03-21 20:19:00 Myles Harry [facility] COMP. METABOLIC PANEL 2020-03-21 20:19:00 Myles Harry [facility] ([id number]) [facility] PROTHROMBIN TIME / INR 2020-03-21 20:19:00 Myles Harry [facility] N-TERMINAL PRO-BNP 2020-03-21 20:19:00 Myles [facility] CORONAVIRUS COVID-19 2020-03-21 20:19:00 Myles Harry [facility] EKG-12 LEAD 2020-03-21 20:11:28 Myles Harry [facility] POCT GLUCOSE (AUTOMATED) 2020-03-07 20:56:00 Julio CesarSarah [facility] POCT GLUCOSE (AUTOMATED) 2020-03-07 15:34:00 Julio CesarSarah [facility] POCT GLUCOSE (AUTOMATED) 2020-03-07 12:56:[address] [facility] URIC ACID 2020-03-07 10:14:00 Holland Garza [facility] TROPONIN I 2020-03-07 10:14:00 [facility] BASIC METABOLIC PANEL 2020-03-07 10:14:00 Julio Cesar [facility] (NA, K, CL, CO2, GLUCOSE, Medica l Branch BUN, CREATININE, CA) CBC WITH DIFFERENTIAL 2020-03-07 10:14:00 Julio Cesar [facility] N-TERMINAL PRO-BNP 2020-03-07 10:14:00 Lulu Harris [facility] POCT GLUCOSE (AUTOMATED) 2020-03-06 21:16:[address] POCT GLUCOSE (AUTOMATED) 2020-03-06 16:10:[address] [facility] POCT GLUCOSE (AUTOMATED) 2020-03-06 12:38:[address] [facility] TROPONIN I 2020-03-06 08:51:00 [facility] BASIC METABOLIC PANEL 2020-03-06 08:51:00 Julio Cesar [facility] (NA, K, CL, CO2, GLUCOSE, Medica l Branch BUN, CREATININE, CA) CBC WITH DIFFERENTIAL 2020-03-06 08:51:00 [facility]io [facility] POCT GLUCOSE (AUTOMATED) 2020-03-06 01:16:[address] [facility] TROPONIN I 2020-03-05 23:25:[address] [facility] POCT GLUCOSE (AUTOMATED) 2020-03-05 21:14:[address] [facility] POCT GLUCOSE (AUTOMATED) 2020-03-05 16:39:[address] [facility] POCT GLUCOSE (AUTOMATED) 2020-03-05 12:47:[address] [facility] TROPONIN I 2020-03-05 09:50:00 [facility] METABOLIC PANEL 2020-03-05 09:50:00 [facility] (NA, K, CL, CO2, GLUCOSE, Medica l Branch BUN, CREATININE, CA) CBC WITH DIFFERENTIAL 2020-03-05 09:50:00 [facility] EKG-12 LEAD 2020-03-05 00:36:54 [facility]AD 2020-03-05 00:31:03 Renan [facility] CORONAVIRUS COVID-19 2020-03-05 00:03:00 Charanjit Heck [facility] XR CHEST 1 VW 2020-03-04 23:58:59 Charanjit Heck [facility] LIPASE 2020-03-04 23:29:00 Umang Charanjit [facility] TROPONIN I 2020-03-04 23:29:00 UmangCox BransonCharanjit [facility] HEPATIC FUNCTION PANEL 2020-03-04 23:29:00 Charanjit Heck [facility] ([id number]) (ALB,T.PRO,BILI [facility] Branch T,BU/BC,ALT,AST,ALK PHOS) BASIC METABOLIC PANEL 2020-03-04 23:29:00 Charanjit Heck [facility] (NA, K, CL, CO2, GLUCOSE, Medica l Branch BUN, CREATININE, CA) CBC WITH DIFFERENTIAL 2020-03-04 23:29:00 Charanjit [facility] PROTHROMBIN TIME / INR 2020-03-04 23:29:00 Charanjit Heck [facility] ACTIVATED PARTIAL 2020-03-04 23:29:00 Charanjit Heck [facility] N-TERMINAL PRO-BNP 2020-03-04 23:29:00 Umang Charanjit [facility] EKG-12 LEAD 2020-03-04 23:15:42 Umang [facility] EKG-12 LEAD 2020-03-04 23:10:23 Umang [facility] EMERGENCY DEPARTMENT 2020-03-04 05:01:00 Doctor Unassigned, [facility] DOCUMENTS [place] [facility] POCT GLUCOSE (AUTOMATED) 2020-03-02 15:52:00 Lulu Harris [facility] POCT GLUCOSE (AUTOMATED) 2020-03-02 12:39:00 Lulu Harris [facility] MAGNESIUM 2020-03-02 08:57:00 Carolyn [facility] BASIC METABOLIC PANEL 2020-03-02 08:57:00 Carolyn alek [facility] (NA, K, CL, CO2, GLUCOSE, Medica l Branch BUN, CREATININE, CA) N-TERMINAL PRO-BNP 2020-03-02 08:57:00 Ivory Leon [facility] POCT GLUCOSE (AUTOMATED) 2020-03-01 20:39:00 Lulu Harris [facility] MAGNESIUM 2020-03-01 08:43:00 Lulu Harris [facility] TROPONIN I 2020-03-01 08:43:00 Carolyn alek [facility] BASIC METABOLIC PANEL 2020-03-01 08:43:00 Lulu Harris [facility] (NA, K, CL, CO2, GLUCOSE, Medica l Branch BUN, CREATININE, CA) CBC WITH DIFFERENTIAL 2020-03-01 08:43:00 Lulu [facility] N-TERMINAL PRO-BNP 2020-03-01 08:43:00 Carolyn alek [facility] VITAMIN B12, LEVEL 2020-03-01 03:49:00 Carolyn [facility] FOLATE 2020-03-01 03:49:00 Carolyn alek [facility] SEDIMENTATION RATE 2020-03-01 03:49:00 Carolyn [facility] POCT GLUCOSE (AUTOMATED) 2020-03-01 03:39:00 Lulu Harris [facility] PHOSPHORUS 2020-03-01 02:28:00 Lulu Harris [facility] URIC ACID 2020-03-01 02:28:00 Carolyn [facility] TROPONIN I 2020-03-01 02:28:00 Carolyn [facility] HEPATIC FUNCTION PANEL 2020-03-01 02:28:00 Ivory Leon [facility] ([id number]) ([facility] T,BU/BC,ALT,AST,ALK PHOS) PROTHROMBIN TIME / INR 2020-03-01 02:28:00 Carolyn alek [facility] N-TERMINAL PRO-BNP 2020-03-01 02:28:00 Lulu Harris [facility] PROCALCITONIN 2020-03-01 02:28:00 Carolyn [facility] EKG-12 LEAD 2020-03-01 01:54:29 Carolyn [facility] EKG-12 LEAD 2020-02-29 23:16:21 Bobo Urrutia [facility] XR CHEST 1 VW COVID 2020-02-29 23:14:25 [facility]o [facility] E[facility]-12 LEAD 2020-02-29 23:13:50 Bobo Urrutia [facility] LACTIC ACID WHOLE BLOOD 2020-02-29 22:21:00 Bobo Urrutia [facility] CORONAVIRUS COVID-19 2020-02-29 22:20:00 Bobo Urrutia [facility] CREATINE KINASE 2020-02-29 22:14:00 Carolyn [facility] URIC ACID 2020-02-29 22:14:00 Carolyn [facility] LIPASE 2020-02-29 22:14:00 Bobo Urrutia [facility] MAGNESIUM 2020-02-29 22:14:00 Carolyn [facility] TROPONIN I 2020-02-29 22:14:00 Bobo Urrutia [facility] THYROID STIMULATING 2020-02-29 22:14:00 Carolyn alek [facility] HORMONE [facility] BASIC METABOLIC PANEL 2020-02-29 22:14:00 Bobo Urrutia [facility] (NA, K, CL, CO2, GLUCOSE, Medica l Branch BUN, CREATININE, CA) CBC WITH DIFFERENTIAL 2020-02-29 22:14:00 Bobo [facility] GLYCOSYLATED HEMOGLOBIN 2020-02-29 22:14:00 [facility] N-TERMINAL PRO-BNP 2020-02-29 22:14:00 Carolyn [facility] EKG-12 LEAD 2020-02-29 21:59:12 Renan [facility] EKG-12 LEAD 2020-02-29 21:48:49 Bobo Urrutia [facility] EMERGENCY DEPARTMENT 2020-02-29 05:01:00 Doctor Unassigned, [facility] DOCUMENTS [place] [facility] POCT GLUCOSE (AUTOMATED) 2020-01-17 18:15:[address] [facility] TROPONIN I 2020-01-17 16:31:[address] [facility] ACTIVATED PARTIAL 2020-01-17 16:31:00 Carolyn [facility] POCT GLUCOSE (AUTOMATED) 2020-01-17 11:56:[address] TROPONIN I 2020-01-17 09:52:[address] [facility] BASIC METABOLIC PANEL 2020-01-17 09:52:00 Julio Cesar [facility] (NA, K, CL, CO2, GLUCOSE, Medica l Branch BUN, CREATININE, CA) CBC WITH DIFFERENTIAL 2020-01-17 09:52:00 Julio Cesar [facility] ACTIVATED PARTIAL 2020-01-17 09:52:00 Julio Cesar [facility] POCT GLUCOSE (AUTOMATED) 2020-01-16 23:59:[address] [facility] EKG-12 LEAD 2020-01-16 22:15:50 [facility] 2020-01-16 20:04:00 [facility] ACTIVATED PARTIAL 2020-01-16 20:04:00 Kael [facility] POCT GLUCOSE (AUTOMATED) 2020-01-16 17:05:00 [facility] PO[facility] GLUCOSE (AUTOMATED) 2020-01-16 13:38:00 [facility] TROPONIN I 2020-01-16 11:11:00 [facility] LIPID PANEL ([id number])(TOTAL 2020-01-16 11:11:00 [facility] TRIGLYCERIDES, HDL) ACTIVATED PARTIAL 2020-01-16 11:11:00 [facility] 2020-01-16 05:48:18 Umang [facility] XR CHEST 1 VW 2020-01-16 04:46:44 [facility] 2020-01-16 04:38:00 [facility] HEPATIC FUNCTION PANEL 2020-01-16 04:38:00 Charanjit Heck [facility] ([id number]) (ALB,T.PRO,BILI Medical Branch T,BU/BC,ALT,AST,ALK PHOS) BASIC METABOLIC PANEL 2020-01-16 04:38:00 Charanjit Heck [facility] (NA, K, CL, CO2, GLUCOSE, Medica l Branch BUN, CREATININE, CA) CBC WITH DIFFERENTIAL 2020-01-16 04:38:00 Charanjit Heck [facility] GLYCOSYLATED HEMOGLOBIN 2020-01-16 04:38:00 [facility] PROTHROMBIN TIME / INR 2020-01-16 04:38:00 Charanjit Heck [facility] ACTIVATED PARTIAL 2020-01-16 04:38:00 Charanjit Heck [facility] THRMPLAS [facility] N-TERMINAL PRO-BNP 2020-01-16 04:38:00 Charanjit Heck [facility] EKG-12 LEAD 2020-01-16 04:37:48 Umang Charanjit [facility] EKG-12 LEAD 2020-01-16 04:35:35 Umang Charanjit [facility] AUTHORIZATION FOR RELEASE 2019-07-12 05:01:00 Doctor Unassigned, [facility] [place] [place] [facility] Encounters Start End Encounter Admission Attending Care Care Encounter Source Date/Time Date/Time Type Type Clinicians Facility Department ID 2022-03-06 Outpatient [facility] [id number] [place] 08:51:10 [id number] [facility] 2021-12-16 [id number] [facility] 11:30:00 [facility] 2021-12-16 Outpatient [facility] [id number] Common 09:19:01 [facility] 2021-12-11 Outpatient Millender, STLMLC [facility] [id number] Common 14:38:21 Anneliese [facility] 2021-12-11 Outpatient Millender, STLMLC STL[facility]C [id number] Common 11:50:18 Anneliese 16940 [facility] 2021-09-16 [facility] [id number] Univers 00:23:34 ity [facility] 2021-09-13 Emergency [facility] [id number] Univers 11:42:35 ity [facility] 2021-09-13 Emergency [facility] [id number] Univers 05:40[facility]05 2022-03-10 Inpatient U BLADE [facility] CAR 2109 [facility] 06:12:00 22:30:00 BRODIE 2022-03-01 2022-03-01 Emergency X LAUREN [facility] ERT [id number] Univers 06:52:00 12:04:00 ANGELIKA zuluagay [facility] 2022-03-012022-03-01 Emergency [facility] [id number] [facility] 06:52:00 12:04:00 Angelika RAMSEY [id number] [id number] [id number] [facility] 084 Branch 2021-12-25 2021-12-25 Inpatient ATTAR, [facility] [id number] [place] 00:00:00 00:00:00 [address] 2021-12-19 2021-12-25 Inpatient LAUREN, [facility] [id number] [place] 00:00:00 00:00:00 JAYSON [address] 2021-12-24 2021-12-24 ambulatory STLMLC STLMLC [id number] Common 00:00:00 00:00:00 [facility] 2021-12-20 2021-12-20 Inpatient ATTAR, [facility] [id number] [address] [place] 00:00:00 00:00:00 [address] 2021-12-17 2021-12-17 ambulatory STLMLC STLMLC [id number] Common 00:00:00 00:00:00 [facility] 2021-12-16 2021-12-16 ambulatory STLMLC STLMLC [id number] Common 00:00:00 00:00:00 [facility] 2021-11-19 2021-11-19 Orders Doctor JONES [id number] Univers 00:00:00 00:00:00 Only Unassigned, ASHLEIGH [id number] ity of [facility] [id number] [place] [id number] [facility] 009 Branch 2021-11-04 2021-11-04 Transition SHAREE Maria [id number] Univers 00:00:00 00:00:00 of Care Supa GREWAL [id number] [place] of [id number] [id number] [facility] 403 Branch 2021-10-30 2021-11-02 Inpatient X ALYSSA [facility] [id number] Univers 19:14:00 18:15:00 AIDA ity of [facility] 2021-10-30 2021-11-02 [facility] Martha Drake [facility] 1.2.840. 114 [id number] Univers 19:14:00 18:15:00 Encounter Aida Shah [id number] ity of [facility] [id number] [facility] [id number] [facility] 081 Branch 2021-05-17 2021-05-17 Letter PcpROBERT [id number] Univers 00:00:00 00:00:00 (Out) Patient ASHLEIGH [id number] it y of [facility] [id number] [place] Have A [id number] [facility] 019 Branch 2021-04-25 2021-04-25 Emergency Cece, TRAUMA [id number] Univers 10:43:00 17:38:00 [facility] [id number] i ty of [place] 4.2.7.2.686 [facility] [id number] [facility] 014 Branch 2020-06-26 2020-06-26 Emergency [facility] [id number] 03:50:00 06:45:00 Martha Ramsey [id number] [place] 4.2.7.2.686 [place] [id number] 2020-06-26 2020-06-26 [facility] [id number] Univers 03:50:00 06:45:00 Martha Ramsey [id number] ity of [place] 4.2.7.2.686 [facility] [id number] [facility] 084 Branch 2020-05-24 2020-05-24 [facility] [id number] 06:40:47 10:54:00 Charanjit Ramsey [id number] [place] 4.2.7.2.686 [place] [id number] [facility] 2020-05-24 2020-05-24 Emergency Umang [facility] [id number] Univers 06:40:47 10:54:00 Charanjit Ramsey [id number] i ty of [id number] [id number] [address] 2020-03-29 2020-03-29 Letter Jamel Flores 1.2.840.114 [id number] 00:00:00 00:00:00 (Out) T Ashleigh [id number] [facility] [id number] [id number] [facility] 2020-03-29 2020-03-29 Letter Jamel Flores 1.2.840.114 [id number] Univers 00:00:00 00:00:00 (Out) T Ashleigh [id number] it y of [facility] 4.2.7.2.686 [place] [id number] [address] 2020-03-26 2020-03-26 Transition Sharee George 1.2.840.114 [id number] 00:00:00 00:00:00 of Care Sherrell Grewal [id number] [place] 4.2.7.2.686 [id number] [facility] 2020-03-26 2020-03-26 Transition Sharee George 1.2.840.114 [id number] Univers 00:00:00 00:00:00 of Care Sherrell Grewal [id number] it y of [place] 4.2.7.2.686 [place] [id number] [facility] [address] 2020-03-22 2020-03-23 Emergency Sallie Eckert Maki 1.2.840. 114 [id number] Univers 18:02:47 21:55:00 Jamel Flores [id number] ity of [facility] [id number] [place] [id number] [address] 2020-03-22 2020-03-23 Outpatient X JAMEL FLORES [facility] [id number] Univers 18:02:47 21:55:00 ity of [facility] 2020-03-21 2020-03-21 Emergency Kamryn, [facility] 1.2.840.114 [id number] Univers 15:02:08 17:16:00 Mylesazra Ramsey [id number] i ty of [place] 4.2.7.2.686 [facility] [id number] [address] 2020-03-21 2020-03-21 Emergency X KAMRYN, [facility] ERT [id number] Univers 15:02:08 17:16:00 MYLES ity of [facility] 2020-03-13 2020-03-13 Outpatient Raju_P [facility] [id number] [place] 05:24:00 05:24:00 0428 Medical [facility] 2020-03-08 2020-03-08 Transition Sharee Cool 1.2.840.114 [id number] Univers 00:00:00 00:00:00 of Care Prema Grewal 350.1.13.10 i ty of [place]2.[place].2.[place] [id number] [address] 2020-03-04 2020-03-07 [facility] HeckCharanjit [facility] 1.2.840.1 [id number] Univers 18:01:05 18:00:00 Encounter AlicerosalioSarah [id number] ity of [place] 4.2.7.2.686 [facility] [id number] [address] 2020-03-04 2020-03-07 Inpatient X JULIO CESAR [facility] ZEFERINO [id number] Univers 18:01:05 18:00:00 SARAH itazra of [facility] 2020-03-03 2020-03-03 Transition Sharee Silva 1.2.840.114 [id number] Univers 00:00:00 00:00:00 of Care Isatu Grewal [id number] it y of [id number] [id number] [address] 2020-02-29 2020-03-02 [facility] Bobo Urrutia [facility] 1.2.840.11 [id number] Univers 16:53:09 12:18:00 Encounter Lulu Harris [id number] ity of [place] 4[place].2.686 [place] [id number] [place] [address] [place] 2020-02-29 2020-03-02 Inpatient X STEVEN [facility] ZEFERINO [id number] Univers 16:53:09 12:18:00 LULU leon [facility] 2020-02-15 2020-02-15 [facility] [id number] Univers 11:30:00 11:30:00 ROSEMARY leon [facility] 2020-02-15 2020-02-15 [facility] 1.2.840.114 [id number] Univers 08:13:42 08:43:42 ne Visit Rosemary Ramsey [id number] it[place] of [place] [id number] Ri dical nal [address] 2020-01-18 2020-01-18 Transition Sharee Harvey 1.2.840.114 [id number] Univers 00:00:00 00:00:00 of Care Ana M Grewal [id number] it y of [place] 4.2.7.2.[place] [id number] [facility] 403 Branch 2020-01-15 2020-01-17 [facility] Charanjit Heck [facility] 1.2.840.1 [id number] Univers 22:33:37 16:58:00 Encounter Sarah Adorno [id number] ity of [place] 4[place]2.[place].2.686 [place] [id number] [address] 2020-01-15 2020-01-17 Outpatient X JULIO CESAR [facility] [id number] Univers 22:33:37 16:58:00 SARAH leon [facility] 2019-10-07 2019-10-07 Outpatient Ko Gant [id number] Common 10:48:00 10:48:00 [facility] it [address] [facility] 2019-10-05 2019-10-05 Outpatient Ko Gant [id number] Common 16:06:00 16:06:00 [facility] [address] [facility] 2019-07-27 2019-07-27 Refill Larsen, ROSMERYCESAR 1.2.840.114 [id number] Univers 00:00:00 00:00:00 Rosemary Ramsey [id number] i [id number] [id number] Ri dical nal [address] [facility] 2019-07-12 2019-07-12 [facility] [id number] Common 16:24:00 16:24:00 [facility] [address] [facility] 2019-07-12 2019-07-12 Orders Doctor JONES [id number] Univers 00:00:00 00:00:00 Only Unassigned, ASHLEIGH [id number] ity of [place] [facility] [id number] [place] as [phone] [id number] [place] [address] 2019-07-06 2019-07-06 [facility] [id number] Common 14:00:00 14:00:00 [facility] Results Test Description Test Time Test Comments Results Result Comments Source SARS-CoV-2 (COVID-19) RNA [Presence] in Respiratory sp ecimen by 2021-12-20 07:04:48 ERI with probe detection Test Item Value Reference Range Interpretation Comme nts SARS-CoV-2 (COVID-19) RNA [Presence] in Respiratory Not detected No t-Detected specimen by ERI with probe detection (test code = 97559-5) 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 (test code = 57527-3) Whether the patient has symptoms related to condition of interest (test code = 36967-7) Patient was hospitalized because of this condition (test code = 41350-9) Whether the patient was admitted to intensive care unit (ICU) for condition of interest (test code = 35422-6) Whether patient resides in a congregate care setting (test code = 62515-0) POCT GLUCOSE (AUTOMATED)2021-11-02 22:57:12 Test Item Value Reference Range Interpretation Comments POCT GLU (test code = 0937635149) 224 mg/dL 70-110 H Lab Interpretation (test code = Abnormal 15892-8) [facility] [id number] 22:37:57 Test Item Value Reference Range Interpretation Comments Lab Interpretation (test code = Abnormal 18534-1) [facility] GLUCOSE (AUTOMATED)2021-11-02 17:43:02 Test Item Value Reference Range Interpretation Comments POCT GLU (test code = 0041551784) 264 mg/dL 70-110 H Lab Interpretation (test code = Abnormal 99587-2) [facility] [id number] 15:07:47 Test Item Value Reference Interpretation Comments Range TROPONIN I (test 0.064 ng/mL See_Comment H [Automated code = 3018807923) message] The system which generated this result [...] biotin. Lab Interpretation Abnormal (test code = 52005-1) [facility] [id number] 15:04:26 Test Item Value Reference Range Interpretation Comments NT-proBNP (test code 800 pg/mL See_Comment H [Autom ated = 3385924281) message] The system which generated this result transmitted reference range : <=450. The reference range was not used to interpret this result as normal/abnormal . ALYSSA (test code = ALYSSA) Biotin has been reported to cause a negative bias, interpret results relative to patient's use of biotin. Lab Interpretation Abnormal (test code = 02391-3) [facility] GLUCOSE (AUTOMATED)2021-11-02 13:36:38 Test Item Value Reference Range Interpretation Comments POCT GLU (test code = 7780233786) 185 mg/dL 70-110 H Lab Interpretation (test code = Abnormal 21635-5) [facility] METABOLIC PANEL (NA, K, CL, CO2, GLUCOSE, BUN, CREATININE, CA)2021-11-02 10:26:43 Test Item Value Reference Range Interpretation Comments NA (test code = 136 mmol/L 135-145 1306673845) K (test code = 4.0 mmol/L 3.5-5.0 4004578144) CL (test code = 99 mmol/L 98-108 4726389434) CO2 TOTAL (test code = 27 mmol/L 23-31 9270310241) AGAP (test code = 2-16 7227756052) BUN (test code = 30 mg/dL 7-23 H 9505038776) GLUCOSE (test code = 165 mg/dL 70-110 H 9717171470) CREATININE (test code = 1.42 mg/dL 0.60-1.25 H 2707551615) CALCIUM (test code = 9.5 mg/dL 8.6-10.6 3910878870) eGFR (test code = mL/min/1.73m2 9108538406) ALYSSA (test code = ALYSSA) Association of [...] tests). Lab Interpretation Abnormal (test code = 54256-7) [facility] WITH [id number] 10:01:58 Test Item Value Reference Range Interpretation [...] RDW-SD (test code = 39.8 fL 38.5-51.6 59080-7) RDW-CV (test code = 11.5 % 12.1-15.4 L 788-0) PLT (test code = See_Comment [Automated 777-3) message] The sy stem which generated this result transmitted reference range : 150 - 328 10*3/ ?L. The reference r corey was not used to interpret this result as normal/abnormal . MPV (test code = 10.5 fL 9.8-13.0 58767-9) NRBC/100 WBC (test See_Comment [Automat ed code = 2585552429) message] The system which generated this result transmitted reference range : 0.0 - 10.0 /100 WBCs. The refer ence range was not u sed to interpret th is result as normal/abnormal . NRBC x10^3 (test code <0.01 See_Comment [Auto mated = 6389136617) message] The s ystem which generated this result transmitted reference range : 10*3/?L. The reference range was not used to interpret this result as normal/abnormal . GRAN MAT (NEUT) % 59.3 % (test code = 770-8) IMM GRAN % (test code 0.30 % = 7131869423) LYMPH % (test code = 25.0 % 736-9) MONO % (test code = 10.7 % 5905-5) EOS % (test code = 4.1 % 713-8) BASO % (test code = 0.6 % 706-2) GRAN MAT x10^3(ANC) 4.19 10*3/uL 1.99-6.95 (test code = 0864216466) IMM GRAN x10^3 (test <0.03 0.00-0.06 code = 3381380952) LYMPH x10^3 (test code 1.77 10*3/uL 1.09-3.23 = 731-0) MONO x10^3 (test code 0.76 10*3/uL 0.36-1.02 = 742-7) EOS x10^3 (test code = 0.29 10*3/uL 0.06-0.53 711-2) BASO x10^3 (test code 0.04 10*3/uL 0.01-0.09 = 704-7) Lab Interpretation Abnormal (test code = 20967-6) [facility] GLUCOSE (AUTOMATED)2021-11-02 01:29:56 Test Item Value Reference Range Interpretation Comments POCT GLU (test code = 0681813999) 167 mg/dL 70-110 H Lab Interpretation (test code = Abnormal 72388-1) [facility] GLUCOSE (AUTOMATED)2021-11-01 17:40:19 Test Item Value Reference Range Interpretation Comments POCT GLU (test code = 0115915759) 193 mg/dL 70-110 H Lab Interpretation (test code = Abnormal 45889-7) [facility] GLUCOSE (AUTOMATED)2021-11-01 13:44:28 Test Item Value Reference Range Interpretation Comments POCT GLU (test code = 1108972356) 200 mg/dL 70-110 H Lab Interpretation (test code = Abnormal 36035-3) [facility] GLUCOSE (AUTOMATED)2021-11-01 01:38:43 Test Item Value Reference Range Interpretation Comments POCT GLU (test code = 2730229630) 177 mg/dL 70-110 H Lab Interpretation (test code = Abnormal 62560-8) [facility] GLUCOSE (AUTOMATED)2021-10-31 22:39:43 Test Item Value Reference Range Interpretation Comments POCT GLU (test code = 5220459169) 174 mg/dL 70-110 H Lab Interpretation (test code = Abnormal 16979-1) [facility] GLUCOSE (AUTOMATED)2021-10-31 17:40:22 Test Item Value Reference Range Interpretation Comments POCT GLU (test code = 4106304890) 224 mg/dL 70-110 H Lab Interpretation (test code = Abnormal 59634-4) [facility] [id number] 17:14:58 Test Item Value Reference Interpretation Comments Range TROPONIN I (test 0.080 ng/mL See_Comment H [Automated code = 6215395524) message] The system which generated this result [...] biotin. Lab Interpretation Abnormal (test code = 28603-5) [facility] [id number] 15:14:03 Test Item Value Reference Range Interpretation Comments NT-proBNP (test code 474 pg/mL See_Comment H [Autom ated = 4504531737) message] The system which generated this result transmitted reference range : <=450. The reference range was not used to interpret this result as normal/abnormal . ALYSSA (test code = ALYSSA) Biotin has been reported to cause a negative bias, interpret results relative to patient's use of biotin. Lab Interpretation Abnormal (test code = 51731-2) [facility]iscoLIPID PANEL (04930)(TOTAL CHOLESTEROL, TRIGLYCERIDES, HDL)2021-10-31 15:05:19 Test Item Value Reference Range Interpretation Comments CHOL (test code = 101 mg/dL 120-200 L 9454540212) HDL (test code = 36 mg/dL >40 L 1027426628) HDLC RATIO (test code = See_Comment [Au tomated message] 8989003627) The system [place] generated this result transmit diamante reference range : <=5.0. The refe rence range was not u sed to interpret th is result as normal/abnormal . TRIG (test code = 143 mg/dL 30-170 4692894416) LDL CHOL (test code = 36 mg/dL See_Comment [Auto mated message] 81782-6) The system [place] generated this result transmit diamante reference range : <=160. The refe rence range was not u sed to interpret th is result as normal/abnormal . VLDL (test code = 29 mg/dL 5-60 2877382145) Lab Interpretation (test Abnormal code = 81229-3) [facility]2021-10-31 13:44:00 Test Item Value Reference Range Interpretation Comments POCT GLU (test code = 2203463836) 150 mg/dL 70-110 H Lab Interpretation (test code = Abnormal 78551-0) [facility]CB with [id number] 11:13:14 Test Item Value Reference Range Interpretation Comments WBC (test code = See_Comment [Automated 2290-2) message] The sy stem which generated this [...] RDW-SD (test code = 39.9 fL 38.5-51.6 21720-2) RDW-CV (test code = 11.8 % 12.1-15.4 L 788-0) PLT (test code = See_Comment [Automated 777-3) message] The sy stem which generated this result transmitted reference range : 150 - 328 10*3/ ?L. The reference r corey was not used to interpret this result as normal/abnormal . MPV (test code = 11.0 fL 9.8-13.0 52068-1) NRBC/100 WBC (test See_Comment [Automat ed code = 7246435961) message] The system which generated this result transmitted reference range : 0.0 - 10.0 /100 WBCs. The refer ence range was not u sed to interpret th is result as normal/abnormal . NRBC x10^3 (test code <0.01 See_Comment [Auto mated = 3705880762) message] The s ystem which generated this result transmitted reference range : 10*3/?L. The reference range was not used to interpret this result as normal/abnormal . GRAN MAT (NEUT) % 64.3 % (test code = 770-8) IMM GRAN % (test code 0.30 % = 4056124284) LYMPH % (test code = 21.7 % 736-9) MONO % (test code = 10.0 % 5905-5) EOS % (test code = 3.1 % 713-8) BASO % (test code = 0.6 % 706-2) GRAN MAT x10^3(ANC) 4.35 10*3/uL 1.99-6.95 (test code = 9360223100) IMM GRAN x10^3 (test <0.03 0.00-0.06 code = 7067574656) LYMPH x10^3 (test code 1.47 10*3/uL 1.09-3.23 = 731-0) MONO x10^3 (test code 0.68 10*3/uL 0.36-1.02 = 742-7) EOS x10^3 (test code = 0.21 10*3/uL 0.06-0.53 711-2) BASO x10^3 (test code 0.04 10*3/uL 0.01-0.09 = 704-7) Lab Interpretation Abnormal (test code = 07535-0) [id number]:09[facility]53 Test Item Value Reference Interpretation Comments Range TROPONIN I (test 0.101 ng/mL See_Comment H [Automated code = 7748266370) message] The system which generated this result [...] biotin. Lab Interpretation Abnormal (test code = 48161-2) [facility] (NA, K, CL, CO2, GLUCOSE, BUN, CREATININE, CA)2021-10-31 10:59:31 Test Item Value Reference Range Interpretation Comments NA (test code = 139 mmol/L 135-145 4574137023) K (test code = 4.1 mmol/L 3.5-5.0 0567534496) CL (test code = 103 mmol/L 98-108 2654012165) CO2 TOTAL (test code = 28 mmol/L 23-31 1840134072) AGAP (test code = 2-16 1210087869) BUN (test code = 43 mg/dL 7-23 H 9472640646) GLUCOSE (test code = 165 mg/dL 70-110 H 1258967031) CREATININE (test code = 1.68 mg/dL 0.60-1.25 H 5529076272) CALCIUM (test code = 9.6 mg/dL 8.6-10.6 2798611642) eGFR (test code = mL/min/1.73m2 2051764862) ALYSSA (test code = ALYSSA) Association of [...] tests). Lab Interpretation Abnormal (test code = 65541-0) [facility]isco[facility]cosylated Hemoglobin (A1C)2021-10-31 09:13:40 Test Item Value Reference Range Interpretation Comments HGB A1C (test code = 6.8 % 4.0-5.7 H 4548-4) ALYSSA (test code = ALYSSA) Reference RangesNormal: <5.7%Prediabetes: 5.7 - 6.4%Diabetes: > 6.5% Lab Interpretation (test Abnormal code = 21490-0) [facility] [id number] 06:48:18 Test Item Value Reference Interpretation Comments Range TROPONIN I (test 0.082 ng/mL See_Comment H [Automated code = 9666106104) message] The system which generated this result [...] biotin. Lab Interpretation Abnormal (test code = 08777-0) [facility] [id number] 02:09:48 Test Item Value Reference Interpretation Comments Range TROPONIN I (test 0.067 ng/mL See_Comment H [Automated code = 6311936027) message] The system which generated this result [...] biotin. Lab Interpretation Abnormal (test code = 73320-1) [facility] [id number] 02:06:31 Test Item Value Reference Range Interpretation Comments NT-proBNP (test code 318 pg/mL See_Comment [Autom ated = 1265495956) message] The system which generated this result transmitted reference range : <=450. The reference range was not used to interpret this result as normal/abnormal . ALYSSA (test code = ALYSSA) Biotin has been reported to cause a negative bias, interpret results relative to patient's use of biotin. Lab Interpretation Normal (test code = 79593-4) [facility] METABOLIC PANEL (24313)2021-10-31 01:58:28 Test Item Value Reference Range Interpretation Comments NA (test code = 137 mmol/L 135-145 8099200959) K (test code = 4.1 mmol/L 3.5-5.0 9682031158) CL (test code = 101 mmol/L 98-108 5152048349) CO2 TOTAL (test code = 26 mmol/L 23-31 4132706920) AGAP (test code = 2-16 5857905018) BUN (test code = 46 mg/dL 7-23 H 3226428008) GLUCOSE (test code = 213 mg/dL 70-110 H 4898113104) CREATININE (test code = 1.96 mg/dL 0.60-1.25 H 9793148541) TOTAL BILI (test code = 0.9 mg/dL 0.1-1.6 2587494059) CALCIUM (test code = 9.7 mg/dL 8.6-10.6 8788672582) T PROTEIN (test code = 7.0 g/dL 6.3-8.2 7973279368) ALBUMIN (test code = 4.3 g/dL 3.5-5.0 3306060838) ALK PHOS (test code = 58 U/L 34-122 8350959927) ALTv (test code = 20 U/L 5-50 1742-6) AST(SGOT) (test code = 27 U/L 13-40 5891140608) eGFR (test code = mL/min/1.73m2 7602243856) ALYSSA (test code = ALYSSA) Association of [...] tests). Lab Interpretation Abnormal (test code = 00013-5) [facility]iscoLIPASE, [id number] 01:57:48 Test Item Value Reference Range Interpretation Comments LIPASE (test code = 9218858818) 330 U/L 0-220 H Lab Interpretation (test code = Abnormal 50425-6) [facility]iscoaPTT2021-12-16 01:55:04 Test Item Value Reference Range Interpretation Comments APTT Patient (test See_Comment [Automat ed code = 3173-2) message] The system which generated this result transmitted reference range : 23 - 38 Seconds . The reference range was not used to interpr et this result as normal/abnormal . ALYSSA (test code = ALYSSA) The [facility] patient population mean normal value for aPTT is 30 seconds. Lab Interpretation Normal (test code = 19437-4) [facility]iscoPROTHROMBIN TIME / [id number] 01:53:08 Test Item Value Reference Range Interpretation [...] tions. Lab Interpretation (test Normal code = 52554-3) [facility] WITH [id number] 01:45:44 Test Item Value Reference Range Interpretation Comments WBC (test code = See_Comment [Automated 4290-2) message] The sy stem which generated this result transmitted reference range : 4.20 - 10.70 10*3/?L. The reference range was not used to interpret this result as normal/abnormal . RBC (test code = See_Comment L [Automated 739-8) message] The sy stem which generated this [...] RDW-SD (test code = 39.1 fL 38.5-51.6 98966-7) RDW-CV (test code = 11.6 % 12.1-15.4 L 788-0) PLT (test code = See_Comment [Automated 777-3) message] The sy stem which generated this result transmitted reference range : 150 - 328 10*3/ ?L. The reference r corey was not used to interpret this result as normal/abnormal . MPV (test code = 10.4 fL 9.8-13.0 43685-0) NRBC/100 WBC (test See_Comment [Automat ed code = 7761195086) message] The system which generated this result transmitted reference range : 0.0 - 10.0 /100 WBCs. The refer ence range was not u sed to interpret th is result as normal/abnormal . NRBC x10^3 (test code <0.01 See_Comment [Auto mated = 9138860827) message] The s ystem which generated this result transmitted reference range : 10*3/?L. The reference range was not used to interpret this result as normal/abnormal . GRAN MAT (NEUT) % 62.1 % (test code = 770-8) IMM GRAN % (test code 0.30 % = 4225438212) LYMPH % (test code = 23.4 % 736-9) MONO % (test code = 10.8 % 5905-5) EOS % (test code = 2.9 % 713-8) BASO % (test code = 0.5 % 706-2) GRAN MAT x10^3(ANC) 4.14 10*3/uL 1.99-6.95 (test code = 2973657115) IMM GRAN x10^3 (test <0.03 0.00-0.06 code = 2383545728) LYMPH x10^3 (test code 1.56 10*3/uL 1.09-3.23 = 731-0) MONO x10^3 (test code 0.72 10*3/uL 0.36-1.02 = 742-7) EOS x10^3 (test code = 0.19 10*3/uL 0.06-0.53 711-2) BASO x10^3 (test code 0.03 10*3/uL 0.01-0.09 = 704-7) Lab Interpretation Abnormal (test code = 25391-2) [facility]20[facility] 21:15:48 Test Item Value Reference Range Interpretation Comments APPEARANCE (test code = Clear Clear 1440709045) COLOR (test code = Yellow Yellow 8520567607) PH (test code = 4.8-8.0 9189063804) SP GRAVITY (test code = 1.003-1.030 4172519813) GLU U QUAL (test code = 50 mg/dL Normal A 5318839234) BLOOD (test code = Negative Negative INTERFERE NCE FROM 9085600431) ASCORBIC ACID M AY CAUSE FALSE NEG ATIVE RESULT KETONES (test code = Negative Negative 0281858502) PROTEIN (test code = Negative Negative 2887-8) UROBILIN (test code = Normal Normal 1863563886) BILIRUBIN (test code = Negative Negative 0565102114) NITRITE (test code = Negative Negative 8474916245) LEUK JESS (test code = Negative Negative 4469545155) RBC/HPF (test code = See_Comment [Autom ated message] 3669429746) The system [place] generated this result transmitted ref erence range: 0 - 3 HP F. The reference range was not used to int erpret this result as normal/abnormal . WBC/HPF (test code = See_Comment [Autom ated message] 3239356344) The system [place] generated this result transmitted ref erence range: 0 - 5 HP F. The reference range was not used to int erpret this result as normal/abnormal . BACTERIA (test code = Negative Negative 5657166084) SQ EPITH (test code = <1 See_Comment [Auto mated message] 5593880341) The system [place] generated this result transmitted ref erence range: <=2 HPF. The reference range was not used to int erpret this result as normal/abnormal . HYAL CAST (test code = See_Comment [Aut omated message] 6791643976) The system [place] generated this result transmitted ref erence range: <=2 LPF. The reference range was not used to int erpret this result as normal/abnormal . Lab Interpretation (test Abnormal code = 35556-4) [facility]XR LUMBAR SPINE 2 [id number] 20:30:53 Impression: Postoperative changes. Degenerative changes. No [...] acute fracture or dislocation identified. Atherosclerotic calcifications. [facility], Radiant Results Inft User -04/25/2021 [...] acute bony abnormality identified.End of Report.RL: 3901 [facility]iscoXR HIPS 2 VW [id number] 20:24:52Impression: Postoperative changes. Degenerative changes. No acute [...] clinicalconcern MRI is available.End of Report.RL: 3901 [facility] Metabolic Panel (NA, K, CL, CO2, GLUCOSE, BUN, CREATININE, CA)2020-05-24 14:15:00 Test Item Value Reference Range Interpretation Comments NA (test code = 139 mmol/L 135-145 4935287764) K (test code = 4.1 mmol/L 3.5-5 4040623929) CL (test code = 104 mmol/L 98-108 0870860889) CO2 TOTAL (test code = 26 mmol/L 23-31 2605894623) AGAP (test code = 2-16 5376651305) BUN (test code = 22 mg/dL 7-23 3018800615) GLUCOSE (test code = 203 mg/dL 70-110 H 6108658189) CREATININE (test code = 1.40 mg/dL 0.6-1.25 H 6769793258) CALCIUM (test code = 9.1 mg/dL 8.6-10.6 8309187324) eGFR Calculation mL/min/1.73m2 (Non-) (test code = 9160620166) eGFR Calculation mL/min/1.73m2 () (test code = 9992700338) ALYSSA (test code = ALYSSA) Association of [...] tests). Lab Interpretation Abnormal (test code = 86437-8) [facility]iscoHepatic Function Panel (ALB, T.PRO, BILI T, BU/BC, ALT, AST, ALK PHOS)2020-05-24 13:54:00 Test Item Value Reference Range Interpretation Comments TOTAL BILI (test code = 1938734436) 0.9 mg/dL 0.1-1.1 BILI UNCON (test code = 8530772838) 1.0 mg/dL 0.1-1.1 BILI CONJ (test code = 1354443593) 0.0 mg/dL 0-0.3 T PROTEIN (test code = 0266542132) 7.0 g/dL 6.3-8.2 ALBUMIN (test code = 3335889415) 4.2 g/dL 3.5-5 ALK PHOS (test code = 9399235979) 49 U/L 34-122 ALTv (test code = 1742-6) 17 U/L 5-50 AST(SGOT) (test code = 9823151157) 25 U/L 13-40 Lab Interpretation (test code = Normal 91089-4) [facility]aPTT2020-07-09 13:32:00 Test Item Value Reference Range Interpretation Comments APTT Patient (test See_Comment [Automat ed code = 3173-2) message] The system which generated this result transmitted reference range : 23 - 38 Seconds . The reference range was not used to interpr et this result as normal/abnormal . ALYSSA (test code = ALYSSA) The [facility] patient population mean normal value for aPTT is 30 seconds. Lab Interpretation Normal (test code = 33590-1) [facility]iscoProthrombin Time (PT) / [id number] 13:30:00 Test Item Value Reference Range Interpretation [...] tions. Lab Interpretation (test Normal code = 11811-3) [facility] WITH [id number] 13:27:00 Test Item Value Reference Range Interpretation Comments WBC (test code = See_Comment [Automated 2890-2) message] The sy stem which generated this result transmitted reference range : 4.20 - 10.70 10*3/?L. The reference range was not used to interpret this result as normal/abnormal . RBC (test code = See_Comment L [Automated 259-8) message] The sy stem which generated this [...] RDW-SD (test code = 42.6 fL 38.5-51.6 97356-1) RDW-CV (test code = 12.3 % 12.1-15.4 788-0) PLT (test code = See_Comment [Automated 777-3) message] The sy stem which generated this result transmitted reference range : 150 - 328 10*3/ ?L. The reference r corey was not used to interpret this result as normal/abnormal . MPV (test code = 9.9 fL 9.8-13 14372-2) NRBC/100 WBC (test See_Comment [Automat ed code = 4039206317) message] The system which generated this result transmitted reference range : 0.0 - 10.0 /100 WBCs. The refer ence range was not u sed to interpret th is result as normal/abnormal . NRBC x10^3 (test code <0.01 See_Comment [Auto mated = 9472507823) message] The s ystem which generated this result transmitted reference range : 10*3/?L. The reference range was not used to interpret this result as normal/abnormal . GRAN MAT (NEUT) % 55.1 % (test code = 770-8) IMM GRAN % (test code 0.20 % = 1688931588) LYMPH % (test code = 28.8 % 736-9) MONO % (test code = 11.3 % 5905-5) EOS % (test code = 3.5 % 713-8) BASO % (test code = 1.1 % 706-2) GRAN MAT x10^3(ANC) 3.11 10*3/uL 1.99-6.95 (test code = 6077987822) IMM GRAN x10^3 (test <0.03 0-0.06 code = 3249563954) LYMPH x10^3 (test code 1.63 10*3/uL 1.09-3.23 = 731-0) MONO x10^3 (test code 0.64 10*3/uL 0.36-1.02 = 742-7) EOS x10^3 (test code = 0.20 10*3/uL 0.06-0.53 711-2) BASO x10^3 (test code 0.06 10*3/uL 0.01-0.09 = 704-7) Lab Interpretation Abnormal (test code = 62889-0) [facility] VW [id number] 13:25:58HISTORY: ?Pain. FINDINGS: AP, lateral, oblique views [...] No acute fracture or dislocation in left ankle.[facility] GLUCOSE (AUTOMATED)2020-03-23 22:34:00 Test Item Value Reference Range Interpretation Comments POCT GLU (test code = 0321115284) 173 mg/dL 70-110 H Lab Interpretation (test code = Abnormal 21290-8) [facility] GLUCOSE (AUTOMATED)2020-03-23 22:34:00 Test Item Value Reference Range Interpretation Comments POCT GLU (test code = 2069150786) 173 mg/dL 70-110 H Lab Interpretation (test code = Abnormal 95204-4) [facility] GLUCOSE (AUTOMATED)2020-03-23 18:12:00 Test Item Value Reference Range Interpretation Comments POCT GLU (test code = 165 mg/dL 70-110 H Notifi ed Provider [id number]) Lab Interpretation (test Abnormal code = 86867-4) [facility] GLUCOSE (AUTOMATED)2020-03-23 18:12:00 Test Item Value Reference Range Interpretation Comments POCT GLU (test code = 165 mg/dL 70-110 H Notifi ed Provider [id number]) Lab Interpretation (test Abnormal code = 77074-8) [facility] GLUCOSE (AUTOMATED)2020-03-23 15:04:00 Test Item Value Reference Range Interpretation Comments POCT GLU (test code = 114 mg/dL 70-110 H Notifi ed Provider [id number]) Lab Interpretation (test Abnormal code = 70771-9) [facility] GLUCOSE (AUTOMATED)2020-03-23 15:04:00 Test Item Value Reference Range Interpretation Comments POCT GLU (test code = 114 mg/dL 70-110 H Notifi ed Provider [id number]) Lab Interpretation (test Abnormal code = 00821-5) [facility]iscoFERRITIN [id number] 13:23:00 Test Item Value Reference Range Interpretation Comments FERRITIN (test code = 139.0 ng/mL 18-464 4217811579) ALYSSA (test code = ALYSSA) Biotin has been reported to cause a negative bias, interpret results relative to patient's use of biotin. Lab Interpretation (test Normal code = 75737-9) [facility] [id number] 13:23:00 Test Item Value Reference Range Interpretation Comments FERRITIN (test code = 139.0 ng/mL 18-464 2499948923) ALYSSA (test code = ALYSSA) Biotin has been reported to cause a negative bias, interpret results relative to patient's use of biotin. Lab Interpretation (test Normal code = 42947-4) [facility] [id number] 12:53:00 Test Item Value Reference Range Interpretation Comments IRON (test code = 1873762458) 87 ug/dL 50-160 TIBC (test code = 0396698180) 385 ug/dL 250-410 % FE SAT (test code = 7006915468) 23 % 20-50 Lab Interpretation (test code = Normal 97693-9) [facility] [id number] 12:53:00 Test Item Value Reference Range Interpretation Comments IRON (test code = 3330986173) 87 ug/dL 50-160 TIBC (test code = 9981273247) 385 ug/dL 250-410 % FE SAT (test code = 7281478959) 23 % 20-50 Lab Interpretation (test code = Normal 58878-7) [facility] 12:07:00 Test Item Value Reference Range Interpretation Comments APTT Patient (test code See_Comment [Au tomated message] = 3173-2) The system [employer] generated this result transmitted ref erence range: 26 - 36 Seconds. The reference range was not used to int erpret this result as normal/abnormal . Lab Interpretation (test Abnormal code = 24946-1) [facility] 12:07:00 Test Item Value Reference Range Interpretation Comments APTT Patient (test code See_Comment [Au tomated message] = 3173-2) The system [employer] generated this result transmitted ref erence range: 26 - 36 Seconds. The reference range was not used to int erpret this result as normal/abnormal . Lab Interpretation (test Abnormal code = 93815-3) [facility] [id number] 11:57:00 Test Item Value Reference Range Interpretation Comments TROPONIN I (test 0.046 ng/mL See_Comment H [Automated code = 0176963352) message] The system which generated this result [...] ? Lab Interpretation Abnormal (test code = 24226-5) [facility]AT[facility] [id number] 11:57:00 Test Item Value Reference Range Interpretation Comments TROPONIN I (test 0.046 ng/mL See_Comment H [Automated code = 4357154671) message] The system which generated this result [...] ? Lab Interpretation Abnormal (test code = 99324-0) [facility] (NA, K, CL, CO2, GLUCOSE, BUN, CREATININE, CA)2020-03-23 11:52:00 Test Item Value Reference Range Interpretation Comments NA (test code = 137 mmol/L 135-145 1678813459) K (test code = 4.1 mmol/L 3.5-5 1304601149) CL (test code = 102 mmol/L 98-108 0540408624) CO2 TOTAL (test code = 26 mmol/L 23-31 7329860793) AGAP (test code = 2-16 6562847938) BUN (test code = 18 mg/dL 7-23 6067796538) GLUCOSE (test code = 119 mg/dL 70-110 H 4377617131) CREATININE (test code = 1.14 mg/dL 0.6-1.25 2300501495) CALCIUM (test code = 9.1 mg/dL 8.6-10.6 7207493667) eGFR Calculation mL/min/1.73m2 (Non-) (test code = 8519739768) eGFR Calculation mL/min/1.73m2 () (test code = 0239934683) ALYSSA (test code = ALYSSA) Association of [...] tests). Lab Interpretation Abnormal (test code = 15308-7) [facility]2020-[facility] 11:52:00 Test Item Value Reference Range Interpretation Comments MAGNESIUM (test code = 6729372345) 2.2 mg/dL 1.7-2.4 Lab Interpretation (test code = Normal 19498-0) [facility] (NA, K, CL, CO2, GLUCOSE, BUN, CREATININE, CA)2020-03-23 11:52:00 Test Item Value Reference Range Interpretation Comments NA (test code = 137 mmol/L 135-145 2663776582) K (test code = 4.1 mmol/L 3.5-5 1261389941) CL (test code = 102 mmol/L 98-108 4035326206) CO2 TOTAL (test code = 26 mmol/L 23-31 6035426325) AGAP (test code = 2-16 6116963984) BUN (test code = 18 mg/dL 7-23 2813739273) GLUCOSE (test code = 119 mg/dL 70-110 H 8060616603) CREATININE (test code = 1.14 mg/dL 0.6-1.25 9683187187) CALCIUM (test code = 9.1 mg/dL 8.6-10.6 4347767123) eGFR Calculation mL/min/1.73m2 (Non-) (test code = 4959936100) eGFR Calculation mL/min/1.73m2 () (test code = 9401221312) ALYSSA (test code = ALYSSA) Association of [...] tests). Lab Interpretation Abnormal (test code = 39545-0) [facility]2020-[facility]-08 11:52:00 Test Item Value Reference Range Interpretation Comments MAGNESIUM (test code = 7868182553) 2.2 mg/dL 1.7-2.4 Lab Interpretation (test code = Normal 19627-3) [facility]iscoProthrombin Time (PT) / [id number] 11:36:00 Test Item Value Reference Range Interpretation Comments PROTIME PATIENT (test See_Comment [Auto mated message] code = 5964-2) The system [employer] generated this result transmitted ref erence range: 10.1 - 1 2.6 Seconds. The re ference range was not u sed to interpret this result as normal/abnor mal. INR (test code = 6301-6) Nor mal INR <1.1; Warfarin Therap eutic range 2.0 to 3. 0 or 2.5 to 3.5, dep ending upon the indica tions. Lab Interpretation (test Normal code = 13348-5) [facility]isco[facility]throm[facility] (PT) / [id number] 11:36:00 Test Item Value Reference Range Interpretation Comments PROTIME PATIENT (test See_Comment [Auto mated message] code = 5964-2) The system [employer] generated this result transmitted ref erence range: 10.1 - 1 2.6 Seconds. The re ference range was not u sed to interpret this result as normal/abnor mal. INR (test code = 6301-6) Nor mal INR <1.1; Warfarin Therap eutic range 2.0 to 3. 0 or 2.5 to 3.5, dep ending upon the indica tions. Lab Interpretation (test Normal code = 15612-6) [facility]isco[facility] [id number] 06:38:00 Test Item Value Reference Range Interpretation Comments TROPONIN I (test 0.045 ng/mL See_Comment H [Automated code = 2800807894) message] The system which generated this result [...] ? Lab Interpretation Abnormal (test code = 35381-0) [facility] [id number] 06:38:00 Test Item Value Reference Range Interpretation Comments TROPONIN I (test 0.045 ng/mL See_Comment H [Automated code = 8041605081) message] The system which generated this result [...] ? Lab Interpretation Abnormal (test code = 65091-8) [facility] (NA, K, CL, CO2, GLUCOSE, BUN, CREATININE, CA)2020-03-23 06:29:00 Test Item Value Reference Range Interpretation Comments NA (test code = 137 mmol/L 135-145 7672744871) K (test code = 3.6 mmol/L 3.5-5 9915687802) CL (test code = 101 mmol/L 98-108 6002680234) CO2 TOTAL (test code = 27 mmol/L 23-31 0282029214) AGAP (test code = 2-16 5666372521) BUN (test code = 19 mg/dL 7-23 9204124643) GLUCOSE (test code = 153 mg/dL 70-110 H 7635571173) CREATININE (test code = 1.22 mg/dL 0.6-1.25 4993534302) CALCIUM (test code = 8.9 mg/dL 8.6-10.6 4088698436) eGFR Calculation mL/min/1.73m2 (Non-) (test code = 7321934865) eGFR Calculation mL/min/1.73m2 () (test code = 5093884772) ALYSSA (test code = ALYSSA) Association of [...] tests). Lab Interpretation Abnormal (test code = 83678-7) [facility]2020-[facility]-08 06:29:00 Test Item Value Reference Range Interpretation Comments MAGNESIUM (test code = 2243615687) 1.7 mg/dL 1.7-2.4 Lab Interpretation (test code = Normal 59231-7) [facility]iscoLIPID PANEL (30684)(TOTAL CHOLESTEROL, TRIGLYCERIDES, HDL)2020-03-23 06:29:00 Test Item Value Reference Range Interpretation Comments CHOL (test code = 106 mg/dL 120-200 L 1600064477) HDL (test code = 46 mg/dL >40 2751981810) HDLC RATIO (test code = See_Comment [Au tomated message] 4838641822) The system [employer] generated this result transmit diamante reference range : <=5.0. The refe rence range was not u sed to interpret th is result as normal/abnormal . TRIG (test code = 74 mg/dL 30-170 1783420558) LDL CHOL (test code = 45 mg/dL See_Comment [Auto mated message] 10892-8) The system [employer] generated this result transmit diamante reference range : <=160. The refe rence range was not u sed to interpret th is result as normal/abnormal . VLDL (test code = 15 mg/dL 5-60 2955124106) Lab Interpretation (test Abnormal code = 17233-1) [facility] METABOLIC PANEL (NA, K, CL, CO2, GLUCOSE, BUN, CREATININE, CA)2020-03-23 06:29:00 Test Item Value Reference Range Interpretation Comments NA (test code = 137 mmol/L 135-145 5099023509) K (test code = 3.6 mmol/L 3.5-5 5265396808) CL (test code = 101 mmol/L 98-108 0099229332) CO2 TOTAL (test code = 27 mmol/L 23-31 9417811725) AGAP (test code = 2-16 7418236245) BUN (test code = 19 mg/dL 7-23 6899585818) GLUCOSE (test code = 153 mg/dL 70-110 H 8724754572) CREATININE (test code = 1.22 mg/dL 0.6-1.25 8182764380) CALCIUM (test code = 8.9 mg/dL 8.6-10.6 3914417760) eGFR Calculation mL/min/1.73m2 (Non-) (test code = 9412946107) eGFR Calculation mL/min/1.73m2 () (test code = 7848832309) ALYSSA (test code = ALYSSA) Association of [...] tests). Lab Interpretation Abnormal (test code = 37981-5) [facility]2020-[facility]-08 06:29:00 Test Item Value Reference Range Interpretation Comments MAGNESIUM (test code = 7514392795) 1.7 mg/dL 1.7-2.4 Lab Interpretation (test code = Normal 59539-8) [facility]iscoLIPID PANEL (70700)(TOTAL CHOLESTEROL, TRIGLYCERIDES, HDL)2020-03-23 06:29:00 Test Item Value Reference Range Interpretation Comments CHOL (test code = 106 mg/dL 120-200 L 6291733186) HDL (test code = 46 mg/dL >40 1601302767) HDLC RATIO (test code = See_Comment [Au tomated message] 4017659563) The system [employer] generated this result transmit diamante reference range : <=5.0. The refe rence range was not u sed to interpret th is result as normal/abnormal . TRIG (test code = 74 mg/dL 30-170 4154149907) LDL CHOL (test code = 45 mg/dL See_Comment [Auto mated message] 23576-1) The system [employer] generated this result transmit diamante reference range : <=160. The refe rence range was not u sed to interpret th is result as normal/abnormal . VLDL (test code = 15 mg/dL 5-60 9101028551) Lab Interpretation (test Abnormal code = 77581-8) [facility] 03:18:00 Test Item Value Reference Range Interpretation Comments APTT Patient (test code = See_Comment [ Automated message] 3173-2) The system [employer] generated this result transmitted ref erence range: 26 - 36 Seconds. The re ference range was not u sed to interpret this result as normal/abnor mal. Lab Interpretation (test Normal code = 72234-1) [facility]2020-[facility] 03:18:00 Test Item Value Reference Range Interpretation Comments APTT Patient (test code = See_Comment [ Automated message] 3173-2) The system [employer] generated this result transmitted ref erence range: 26 - 36 Seconds. The re ference range was not u sed to interpret this result as normal/abnor mal. Lab Interpretation (test Normal code = 18416-4) [facility]iscoPROTHROMBIN TIME / [id number] 03:07:00 Test Item Value Reference Range Interpretation Comments PROTIME PATIENT (test See_Comment [Auto mated message] code = 5964-2) The system [employer] generated this result transmitted ref erence range: 10.1 - 1 2.6 Seconds. The re ference range was not u sed to interpret this result as normal/abnor mal. INR (test code = 6301-6) Nor mal INR <1.1; Warfarin Therap eutic range 2.0 to 3. 0 or 2.5 to 3.5, dep ending upon the indica tions. Lab Interpretation (test Normal code = 11063-6) [facility]iscoPROTHROMBIN TIME / [id number] 03:07:00 Test Item Value Reference Range Interpretation Comments PROTIME PATIENT (test See_Comment [Auto mated message] code = 5964-2) The system [employer] generated this result transmitted ref erence range: 10.1 - 1 2.6 Seconds. The re ference range was not u sed to interpret this result as normal/abnor mal. INR (test code = 6301-6) Nor mal INR <1.1; Warfarin Therap eutic range 2.0 to 3. 0 or 2.5 to 3.5, dep ending upon the indica tions. Lab Interpretation (test Normal code = 99092-8) [facility] CHEST 2 [id number] 02:23:32 No acute cardiopulmonary process. Preliminary Report [...] reviewed this study and agree with the abovereport.[facility]ST 2 [id number] 02:23:32 No acute cardiopulmonary process. Preliminary Report [...] is seen. Noacute bony abnormalities are noted. Scmb, Radiant Results Inft User - 03/22/2020 9:24 [...] reviewed this study and agree with the abovereport.[facility]-19 [id number] 01:23:00 Test Item Value Reference Range Interpretation Comments SARS-CoV-2 (test code = Not Detected Not Detected 93137-7) ALYSSA (test code = ALYSSA) ID NOW COVID-19 Assay is an isothermal nucleic acid amplification test intended for the qualitative detection of nucleic acid from SARS-CoV-2 viral RNA in nasopharyngeal (INSURANCE EXAMINER) specimens. It is used under Emergency Use [...] indicated. Lab Interpretation Normal (test code = 06850-3) [facility] [id number] 01:23:00 Test Item Value Reference Range Interpretation Comments SARS-CoV-2 (test code = Not Detected Not Detected 87639-4) ALYSSA (test code = ALYSSA) ID NOW COVID-19 Assay is an isothermal nucleic acid amplification test intended for the qualitative detection of nucleic acid from SARS-CoV-2 viral RNA in nasopharyngeal (INSURANCE EXAMINER) specimens. It is used under Emergency Use [...] indicated. Lab Interpretation Normal (test code = 67892-5) [facility]iscoN-TERMINAL [id number] 00:12:00 Test Item Value Reference Range Interpretation Comments NT-proBNP (test code 585 pg/mL See_Comment H [Autom ated = 8926514997) message] The system which generated this result transmitted reference range : <=450. The reference range was not used to interpret this result as normal/abnormal . ALYSSA (test code = ALYSSA) Biotin has been reported to cause a negative bias, interpret results relative to patient's use of biotin. Lab Interpretation Abnormal (test code = 99073-5) [facility] [id number] 00:12:00 Test Item Value Reference Range Interpretation Comments TROPONIN I (test 0.030 ng/mL See_Comment [Automated code = 0971374208) message] The system which generated this result [...] ? Lab Interpretation Normal (test code = 14173-6) [facility] [id number] 00:12:00 Test Item Value Reference Range Interpretation Comments NT-proBNP (test code 585 pg/mL See_Comment H [Autom ated = 7710102686) message] The system which generated this result transmitted reference range : <=450. The reference range was not used to interpret this result as normal/abnormal . ALYSSA (test code = ALYSSA) Biotin has been reported to cause a negative bias, interpret results relative to patient's use of biotin. Lab Interpretation Abnormal (test code = 03271-0) [facility] [id number] 00:12:00 Test Item Value Reference Range Interpretation Comments TROPONIN I (test 0.030 ng/mL See_Comment [Automated code = 6420441355) message] The system which generated this result [...] ? Lab Interpretation Normal (test code = 45698-7) [facility] METABOLIC PANEL (43195)2020-03-23 00:03:00 Test Item Value Reference Range Interpretation Comments NA (test code = 138 mmol/L 135-145 7580893168) K (test code = 4.1 mmol/L 3.5-5 3864415794) CL (test code = 103 mmol/L 98-108 6635541663) CO2 TOTAL (test code = 26 mmol/L 23-31 3440028934) AGAP (test code = 2-16 2966913807) BUN (test code = 18 mg/dL 7-23 5295258435) GLUCOSE (test code = 157 mg/dL 70-110 H 0620192440) CREATININE (test code = 1.19 mg/dL 0.6-1.25 4921939195) TOTAL BILI (test code = 1.1 mg/dL 0.1-1.7 4655275245) CALCIUM (test code = 9.2 mg/dL 8.6-10.6 4185411274) T PROTEIN (test code = 6.8 g/dL 6.3-8.2 9346787197) ALBUMIN (test code = 4.0 g/dL 3.5-5 6339023412) ALK PHOS (test code = 51 U/L 34-122 0237497522) ALTv (test code = 16 U/L 5-50 1742-6) AST(SGOT) (test code = 23 U/L 13-40 4761743835) eGFR Calculation mL/min/1.73m2 (Non-) (test code = 2682501883) eGFR Calculation mL/min/1.73m2 () (test code = 8543118896) ALYSSA (test code = ALYSSA) Association of [...] tests). Lab Interpretation Abnormal (test code = 72975-5) [facility] METABOLIC PANEL (65642)2020-03-23 00:03:00 Test Item Value Reference Range Interpretation Comments NA (test code = 138 mmol/L 135-145 3056482940) K (test code = 4.1 mmol/L 3.5-5 2045644716) CL (test code = 103 mmol/L 98-108 0530340074) CO2 TOTAL (test code = 26 mmol/L 23-31 2937742378) AGAP (test code = 2-16 1116747211) BUN (test code = 18 mg/dL 7-23 7547224205) GLUCOSE (test code = 157 mg/dL 70-110 H 7735902823) CREATININE (test code = 1.19 mg/dL 0.6-1.25 9932564841) TOTAL BILI (test code = 1.1 mg/dL 0.1-1.9 6177241271) CALCIUM (test code = 9.2 mg/dL 8.6-10.6 6812531498) T PROTEIN (test code = 6.8 g/dL 6.3-8.2 0487852675) ALBUMIN (test code = 4.0 g/dL 3.5-5 6886149611) ALK PHOS (test code = 51 U/L 34-122 3395671658) ALTv (test code = 16 U/L 5-50 1742-6) AST(SGOT) (test code = 23 U/L 13-40 9117710002) eGFR Calculation mL/min/1.73m2 (Non-) (test code = 7097351429) eGFR Calculation mL/min/1.73m2 () (test code = 1438821312) ALYSSA (test code = ALYSSA) Association of [...] tests). Lab Interpretation Abnormal (test code = 96931-5) [facility] WITH [id number] 23:57:00 Test Item Value Reference Range Interpretation Comments WBC (test code = See_Comment [Automated 4893-2) message] The sy stem which generated this result transmitted reference range : 4.20 - 10.70 10*3/?L. The reference range was not used to interpret this result as normal/abnormal . RBC (test code = See_Comment L [Automated 629-8) message] The sy stem which generated this [...] RDW-SD (test code = 49.6 fL 38.5-51.6 60407-0) RDW-CV (test code = 14.6 % 12.1-15.4 788-0) PLT (test code = See_Comment L [Automated 777-3) message] The sy stem which generated this result transmitted reference range : 150 - 328 10*3/ ?L. The reference r corey was not used to interpret this result as normal/abnormal . MPV (test code = 9.9 fL 9.8-13 26638-6) NRBC/100 WBC (test See_Comment [Automat ed code = 7752776813) message] The system which generated this result transmitted reference range : 0.0 - 10.0 /100 WBCs. The refer ence range was not u sed to interpret th is result as normal/abnormal . NRBC x10^3 (test code <0.01 See_Comment [Auto mated = 0031977824) message] The s ystem which generated this result transmitted reference range : 10*3/?L. The reference range was not used to interpret this result as normal/abnormal . GRAN MAT (NEUT) % 55.3 % (test code = 770-8) IMM GRAN % (test code 0.20 % = 5238287905) LYMPH % (test code = 28.3 % 736-9) MONO % (test code = 12.6 % 5905-5) EOS % (test code = 3.1 % 713-8) BASO % (test code = 0.5 % 706-2) GRAN MAT x10^3(ANC) 3.20 10*3/uL 1.99-6.95 (test code = 0606538650) IMM GRAN x10^3 (test <0.03 0-0.06 code = 1812433198) LYMPH x10^3 (test code 1.64 10*3/uL 1.09-3.23 = 731-0) MONO x10^3 (test code 0.73 10*3/uL 0.36-1.02 = 742-7) EOS x10^3 (test code = 0.18 10*3/uL 0.06-0.53 711-2) BASO x10^3 (test code 0.03 10*3/uL 0.01-0.09 = 704-7) Lab Interpretation Abnormal (test code = 46074-0) [facility] WITH [id number] 23:57:00 Test Item Value Reference Range Interpretation [...] RDW-SD (test code = 49.6 fL 38.5-51.6 75044-8) RDW-CV (test code = 14.6 % 12.1-15.4 788-0) PLT (test code = See_Comment L [Automated 777-3) message] The sy stem which generated this result transmitted reference range : 150 - 328 10*3/ ?L. The reference r corey was not used to interpret this result as normal/abnormal . MPV (test code = 9.9 fL 9.8-13 38017-7) NRBC/100 WBC (test See_Comment [Automat ed code = 1097382718) message] The system which generated this result transmitted reference range : 0.0 - 10.0 /100 WBCs. The refer ence range was not u sed to interpret th is result as normal/abnormal . NRBC x10^3 (test code <0.01 See_Comment [Auto mated = 2450148345) message] The s ystem which generated this result transmitted reference range : 10*3/?L. The reference range was not used to interpret this result as normal/abnormal . GRAN MAT (NEUT) % 55.3 % (test code = 770-8) IMM GRAN % (test code 0.20 % = 9656244579) LYMPH % (test code = 28.3 % 736-9) MONO % (test code = 12.6 % 5905-5) EOS % (test code = 3.1 % 713-8) BASO % (test code = 0.5 % 706-2) GRAN MAT x10^3(ANC) 3.20 10*3/uL 1.99-6.95 (test code = 1481491330) IMM GRAN x10^3 (test <0.03 0-0.06 code = 7175851914) LYMPH x10^3 (test code 1.64 10*3/uL 1.09-3.23 = 731-0) MONO x10^3 (test code 0.73 10*3/uL 0.36-1.02 = 742-7) EOS x10^3 (test code = 0.18 10*3/uL 0.06-0.53 711-2) BASO x10^3 (test code 0.03 10*3/uL 0.01-0.09 = 704-7) Lab Interpretation Abnormal (test code = 22549-3) [facility] [id number] 21:48:00 Test Item Value Reference Range Interpretation Comments SARS-CoV-2 (test code = Not Detected Not Detected 31778-0) ALYSSA (test code = ALYSSA) ID NOW COVID-19 Assay is an isothermal nucleic acid amplification test intended for the qualitative detection of nucleic acid from SARS-CoV-2 viral RNA in nasopharyngeal (INSURANCE EXAMINER) specimens. It is used under Emergency Use [...] indicated. Lab Interpretation Normal (test code = 59917-6) [facility]iscoTroponin [id number] 21:44:00 Test Item Value Reference Range Interpretation Comments TROPONIN I (test 0.027 ng/mL See_Comment [Automated code = 0088960118) message] The system which generated this result [...] ? Lab Interpretation Normal (test code = 09036-8) [facility]isco[facility]th[facility]bin [facility] (PT) / [id number] 21:41:00 Test Item Value Reference Range Interpretation [...] tions. Lab Interpretation (test Normal code = 37308-3) [facility] [id number] 21:39:00 Test Item Value Reference Range Interpretation Comments NT-proBNP (test code 663 pg/mL See_Comment H [Autom ated = 5171032096) message] The system which generated this result transmitted reference range : <=450. The reference range was not used to interpret this result as normal/abnormal . ALYSSA (test code = ALYSSA) Biotin has been reported to cause a negative bias, interpret results relative to patient's use of biotin. Lab Interpretation Abnormal (test code = 13117-1) [facility] METABOLIC PANEL (01601)2020-03-21 21:37:00 Test Item Value Reference Range Interpretation Comments NA (test code = 139 mmol/L 135-145 2026740271) K (test code = 4.1 mmol/L 3.5-5 6978336598) CL (test code = 102 mmol/L 98-108 3387852610) CO2 TOTAL (test code = 29 mmol/L 23-31 1881647172) AGAP (test code = 2-16 3776199359) BUN (test code = 18 mg/dL 7-23 8201215198) GLUCOSE (test code = 277 mg/dL 70-110 H 1584329553) CREATININE (test code = 1.23 mg/dL 0.6-1.25 0191085374) TOTAL BILI (test code = 1.3 mg/dL 0.1-1.1 H 9630566335) CALCIUM (test code = 9.8 mg/dL 8.6-10.6 0673027277) T PROTEIN (test code = 7.0 g/dL 6.3-8.2 7913213329) ALBUMIN (test code = 4.2 g/dL 3.5-5 9936162892) ALK PHOS (test code = 50 U/L 34-122 4886546327) ALTv (test code = 15 U/L 5-50 1742-6) AST(SGOT) (test code = 22 U/L 13-40 9109614284) eGFR Calculation mL/min/1.73m2 (Non-) (test code = 3478473601) eGFR Calculation mL/min/1.73m2 () (test code = 4638642397) ALYSSA (test code = ALYSSA) Association of [...] tests). Lab Interpretation Abnormal (test code = 74125-5) [facility]iscoLip[facility] [id number] 21:37:00 Test Item Value Reference Range Interpretation Comments LIPASE (test code = 6531772761) 161 U/L 0-220 Lab Interpretation (test code = Normal 92776-8) [facility]isco[facility] 1 [id number] 20:46:31HISTORY: Chest pain. TECHNIQUE: Portable AP view of the chest is obtained. Comparison made with03/04/2020 study. FINDINGS: No acute pneumonia. No pneumothorax or pleural effusion orpulmonary congestion detected. Mild cardiomegaly and intrathecal electrodesin lower thoracic spinal canal noted. Mild thoracolumbar scoliosis noted. CONCLUSIONS: Mild cardiomegaly.Scmb, Radiant Results Inft User - 03/21/2020 3:47 PM CDTHISTORY: Chest pain.TECHNIQUE: Portable AP view of the chest is obtained. Comparison made with03/04/2020 study.FINDINGS: No acute pneumonia. No pneumothorax or pleural effusion orpulmonary congestion detected. Mild cardiomegaly and intrathecal electrodesin lower thoracic spinal canal noted. Mild thoracolumbar scoliosis noted.CONCLUSIONS: Mild cardiomegaly. [facility] Whole [id number] 20:43:00 Test Item Value Reference Range Interpretation Comments LACTIC ACID (test code = 1.91 mmol/L 0.3-2.6 6206445884) [facility] GLUCOSE (AUTOMATED)2020-03-07 20:58:00 Test Item Value Reference Range Interpretation Comments POCT GLU (test code = 3940830053) 216 mg/dL 70-110 H Lab Interpretation (test code = Abnormal 43574-8) [facility] GLUCOSE (AUTOMATED)2020-03-07 16:00:00 Test Item Value Reference Range Interpretation Comments POCT GLU (test code = 1466105652) 168 mg/dL 70-110 H Lab Interpretation (test code = Abnormal 52616-9) [facility] GLUCOSE (AUTOMATED)2020-03-07 13:07:00 Test Item Value Reference Range Interpretation Comments POCT GLU (test code = 9571484838) 148 mg/dL 70-110 H Lab Interpretation (test code = Abnormal 12623-4) [facility] [id number] 11:27:00 Test Item Value Reference Range Interpretation Comments TROPONIN I (test 0.051 ng/mL See_Comment H [Automated code = 6477679859) message] The system which generated this result [...] ? Lab Interpretation Abnormal (test code = 74061-5) [facility] [id number] 11:24:00 Test Item Value Reference Range Interpretation Comments NT-proBNP (test code 336 pg/mL See_Comment [Autom ated = 2090512974) message] The system which generated this result transmitted reference range : <=450. The reference range was not used to interpret this result as normal/abnormal . ALYSSA (test code = ALYSSA) Biotin has been reported to cause a negative bias, interpret results relative to patient's use of biotin. Lab Interpretation Normal (test code = 87371-0) [facility] (NA, K, CL, CO2, GLUCOSE, BUN, CREATININE, [place])2020-03-07 11:14:00 Test Item Value Reference Range Interpretation Comments NA (test code = 138 mmol/L 135-145 7538137903) K (test code = 3.8 mmol/L 3.5-5 4035310301) CL (test code = 97 mmol/L 98-108 L 0395101847) CO2 TOTAL (test code = 30 mmol/L 23-31 6363484931) AGAP (test code = 2-16 6936110083) BUN (test code = 36 mg/dL 7-23 H 9748051528) GLUCOSE (test code = 140 mg/dL 70-110 H 0905110547) CREATININE (test code = 1.50 mg/dL 0.6-1.25 H 0038926097) CALCIUM (test code = 10.0 mg/dL 8.6-10.6 2275857137) eGFR Calculation mL/min/1.73m2 (Non-) (test code = 8667218840) eGFR Calculation mL/min/1.73m2 () (test code = 1636851948) ALYSSA (test code = ALYSSA) Association of [...] tests). Lab Interpretation Abnormal (test code = 62086-6) [facility]iscoURIC [id number] 11:14:00 Test Item Value Reference Range Interpretation Comments URIC ACID (test code = 6308262370) 5.4 mg/dL 3.6-8 Lab Interpretation (test code = Normal 33364-6) [facility]CB WITH [id number] 10:53:00 Test Item Value Reference Range Interpretation Comments WBC (test code = See_Comment [Automated 2241-2) message] The sy stem which generated this result transmitted reference range : 4.20 - 10.70 10*3/?L. The reference range was not used to interpret this result as normal/abnormal . RBC (test code = See_Comment L [Automated 788-5) message] The sy stem which generated this [...] RDW-SD (test code = 45.1 fL 38.5-51.6 75618-1) RDW-CV (test code = 14.2 % 12.1-15.4 788-0) PLT (test code = See_Comment [Automated 777-3) message] The sy stem which generated this result transmitted reference range : 150 - 328 10*3/ ?L. The reference r corey was not used to interpret this result as normal/abnormal . MPV (test code = 9.8 fL 9.8-13 35995-9) NRBC/100 WBC (test See_Comment [Automat ed code = 3091981848) message] The system which generated this result transmitted reference range : 0.0 - 10.0 /100 WBCs. The refer ence range was not u sed to interpret th is result as normal/abnormal . NRBC x10^3 (test code <0.01 See_Comment [Auto mated = 1282497413) message] The s ystem which generated this result transmitted reference range : 10*3/?L. The reference range was not used to interpret this result as normal/abnormal . GRAN MAT (NEUT) % 51.0 % (test code = 770-8) IMM GRAN % (test code 0.50 % = 2172542311) LYMPH % (test code = 32.0 % 736-9) MONO % (test code = 11.3 % 5905-5) EOS % (test code = 4.3 % 713-8) BASO % (test code = 0.9 % 706-2) GRAN MAT x10^3(ANC) 2.85 10*3/uL 1.99-6.95 (test code = 4442266111) IMM GRAN x10^3 (test 0.03 10*3/uL 0-0.06 code = 4641352136) LYMPH x10^3 (test code 1.79 10*3/uL 1.09-3.23 = 731-0) MONO x10^3 (test code 0.63 10*3/uL 0.36-1.02 = 742-7) EOS x10^3 (test code = 0.24 10*3/uL 0.06-0.53 711-2) BASO x10^3 (test code 0.05 10*3/uL 0.01-0.09 = 704-7) Lab Interpretation Abnormal (test code = 75984-4) [facility] GLUCOSE (AUTOMATED)2020-03-06 22:46:00 Test Item Value Reference Range Interpretation Comments POCT GLU (test code = 9143485764) 209 mg/dL 70-110 H Lab Interpretation (test code = Abnormal 54471-9) [facility] GLUCOSE (AUTOMATED)2020-03-06 16:23:00 Test Item Value Reference Range Interpretation Comments POCT GLU (test code = 7030575475) 254 mg/dL 70-110 H Lab Interpretation (test code = Abnormal 69556-3) [facility] GLUCOSE (AUTOMATED)2020-03-06 12:51:00 Test Item Value Reference Range Interpretation Comments POCT GLU (test code = 3730834168) 126 mg/dL 70-110 H Lab Interpretation (test code = Abnormal 64653-3) [facility]iscoTROPONIN [id number] 10:16:00 Test Item Value Reference Range Interpretation Comments TROPONIN I (test 0.056 ng/mL See_Comment H [Automated code = 2377748680) message] The system which generated this result [...] ? Lab Interpretation Abnormal (test code = 95287-9) [facility] Metabolic Panel (NA, K, CL, CO2, GLUCOSE, BUN, CREATININE, CA)2020-03-06 10:13:00 Test Item Value Reference Range Interpretation Comments NA (test code = 136 mmol/L 135-145 6466574002) K (test code = 4.1 mmol/L 3.5-5 8315026967) CL (test code = 95 mmol/L 98-108 L 1784457905) CO2 TOTAL (test code = 30 mmol/L 23-31 1174589887) AGAP (test code = 2-16 9381123747) BUN (test code = 35 mg/dL 7-23 H 8342973633) GLUCOSE (test code = 174 mg/dL 70-110 H 0459986421) CREATININE (test code = 1.67 mg/dL 0.6-1.25 H 8003437683) CALCIUM (test code = 9.7 mg/dL 8.6-10.6 8609320821) eGFR Calculation mL/min/1.73m2 (Non-) (test code = 7556441972) eGFR Calculation mL/min/1.73m2 () (test code = 1357520104) ALYSSA (test code = ALYSSA) Association of [...] tests). Lab Interpretation Abnormal (test code = 06718-7) [facility] WITH [id number] 09:16:00 Test Item Value Reference Range Interpretation Comments WBC (test code = See_Comment [Automated 9390-2) message] The sy stem which generated this result transmitted reference range : 4.20 - 10.70 10*3/?L. The reference range was not used to interpret this result as normal/abnormal . RBC (test code = See_Comment L [Automated 529-8) message] The sy stem which generated this [...] RDW-SD (test code = 45.6 fL 38.5-51.6 73007-2) RDW-CV (test code = 14.3 % 12.1-15.4 788-0) PLT (test code = See_Comment [Automated 777-3) message] The sy stem which generated this result transmitted reference range : 150 - 328 10*3/ ?L. The reference r corey was not used to interpret this result as normal/abnormal . MPV (test code = 9.8 fL 9.8-13 25479-2) NRBC/100 WBC (test See_Comment [Automat ed code = 5909867741) message] The system which generated this result transmitted reference range : 0.0 - 10.0 /100 WBCs. The refer ence range was not u sed to interpret th is result as normal/abnormal . NRBC x10^3 (test code <0.01 See_Comment [Auto mated = 4878353687) message] The s ystem which generated this result transmitted reference range : 10*3/?L. The reference range was not used to interpret this result as normal/abnormal . GRAN MAT (NEUT) % 56.1 % (test code = 770-8) IMM GRAN % (test code 0.10 % = 3881616921) LYMPH % (test code = 29.7 % 736-9) MONO % (test code = 9.6 % 5905-5) EOS % (test code = 3.8 % 713-8) BASO % (test code = 0.7 % 706-2) GRAN MAT x10^3(ANC) 3.79 10*3/uL 1.99-6.95 (test code = 7286715931) IMM GRAN x10^3 (test <0.03 0-0.06 code = 2353630702) LYMPH x10^3 (test code 2.01 10*3/uL 1.09-3.23 = 731-0) MONO x10^3 (test code 0.65 10*3/uL 0.36-1.02 = 742-7) EOS x10^3 (test code = 0.26 10*3/uL 0.06-0.53 711-2) BASO x10^3 (test code 0.05 10*3/uL 0.01-0.09 = 704-7) Lab Interpretation Abnormal (test code = 59570-2) [facility] GLUCOSE (AUTOMATED)2020-03-06 01:25:00 Test Item Value Reference Range Interpretation Comments POCT GLU (test code = 1304623799) 208 mg/dL 70-110 H Lab Interpretation (test code = Abnormal 44746-8) [id number] Test Item Value Reference Range Interpretation Comments TROPONIN I (test 0.047 ng/mL See_Comment H [Automated code = 5059288095) message] The system which generated this result [...] ? Lab Interpretation Abnormal (test code = 13096-5) [facility] GLUCOSE (AUTOMATED)2020-03-05 21:19:00 Test Item Value Reference Range Interpretation Comments POCT GLU (test code = 0812137817) 234 mg/dL 70-110 H Lab Interpretation (test code = Abnormal 02437-5) [facility] GLUCOSE (AUTOMATED)2020-03-05 16:55:00 Test Item Value Reference Range Interpretation Comments POCT GLU (test code = 0464331329) 258 mg/dL 70-110 H Lab Interpretation (test code = Abnormal 72604-7) [facility] GLUCOSE (AUTOMATED)2020-03-05 12:59:00 Test Item Value Reference Range Interpretation Comments POCT GLU (test code = 2412084696) 194 mg/dL 70-110 H Lab Interpretation (test code = Abnormal 75281-8) [facility] [id number] 10:54:00 Test Item Value Reference Range Interpretation Comments TROPONIN I (test 0.071 ng/mL See_Comment H [Automated code = 0131066682) message] The system which generated this result [...] ? Lab Interpretation Abnormal (test code = 15129-3) [facility] (NA, K, CL, CO2, GLUCOSE, BUN, CREATININE, [place])2020-03-05 10:43:00 Test Item Value Reference Range Interpretation Comments NA (test code = 139 mmol/L 135-145 6332411859) K (test code = 4.1 mmol/L 3.5-5 2939323636) CL (test code = 101 mmol/L 98-108 5523284466) CO2 TOTAL (test code = 27 mmol/L 23-31 9856937663) AGAP (test code = 2-16 6186965083) BUN (test code = 25 mg/dL 7-23 H 0501156404) GLUCOSE (test code = 243 mg/dL 70-110 H 2582731613) CREATININE (test code = 1.22 mg/dL 0.6-1.25 9028777945) CALCIUM (test code = 9.8 mg/dL 8.6-10.6 6556994209) eGFR Calculation mL/min/1.73m2 (Non-) (test code = 7264830449) eGFR Calculation mL/min/1.73m2 () (test code = 1650752954) ALYSSA (test code = ALYSSA) Association of [...] tests). Lab Interpretation Abnormal (test code = 12868-2) [facility] WITH [id number] 10:23:00 Test Item Value Reference Range Interpretation Comments WBC (test code = See_Comment [Automated message] 6690-2) The system [place] generated this result transmitted ref erence range: 4.20 - 1 0.70 10*3/?L. The re ference range was not u sed to interpret this result as normal/abnor mal. RBC (test code = See_Comment [Automated message] 789-8) The system [place] generated this result transmitted ref erence range: [...] RDW-SD (test code 47.8 fL 38.5-51.6 = 81220-3) RDW-CV (test code 14.4 % 12.1-15.4 = 788-0) PLT (test code = See_Comment [Automated message] 777-3) The system [place] generated this result transmitted ref erence range: 150 - 32 8 10*3/?L. The re ference range was not u sed to interpret this result as normal/abnor mal. MPV (test code = 9.8 fL 9.8-13 29882-8) NRBC/100 WBC (test See_Comment [Automat ed message] code = 6661155658) The syste m which generated this result transmitted ref erence range: 0.0 - 10 .0 /100 WBCs. The refer ence range was not u sed to interpret this result as normal/abnor mal. NRBC x10^3 (test <0.01 See_Comment [Automated message] code = 7308160896) The syste m which generated this result transmitted ref erence range: 10*3/?L. The reference range was not used to interpr et this result as normal/abnormal . GRAN MAT (NEUT) % 48.8 % (test code = 770-8) IMM GRAN % (test 0.20 % code = 6570439807) LYMPH % (test code 34.7 % = 736-9) MONO % (test code 10.8 % = 5905-5) EOS % (test code = 4.9 % 713-8) BASO % (test code 0.6 % = 706-2) GRAN MAT 2.49 10*3/uL 1.99-6.95 x10^3(ANC) (test code = 3999993562) IMM GRAN x10^3 <0.03 0-0.06 (test code = 0166562178) LYMPH x10^3 (test 1.77 10*3/uL 1.09-3.23 code = 731-0) MONO x10^3 (test 0.55 10*3/uL 0.36-1.02 code = 742-7) EOS x10^3 (test 0.25 10*3/uL 0.06-0.53 code = 711-2) BASO x10^3 (test 0.03 10*3/uL 0.01-0.09 code = 704-7) [facility]ST 1 [id number] 03:06:08 No acute cardiopulmonary process. Unchanged enlargement [...] reviewed this study and agree with the abovereport.[facility] CORONAVIRUS COVID-19 [id number] 00:34:00 Test Item Value Reference Range Interpretation Comments SARS-CoV-2 (test code = Not Detected Not Detected 58218-5) ALYSSA (test code = ALYSSA) ID NOW COVID-19 Assay is an isothermal nucleic acid amplification test intended for the qualitative detection of nucleic acid from SARS-CoV-2 viral RNA in nasopharyngeal (INSURANCE EXAMINER) specimens. It is used under Emergency Use [...] indicated. Lab Interpretation Normal (test code = 54871-6) [facility]iscoTroponin [id number] 00:08:00 Test Item Value Reference Range Interpretation Comments TROPONIN I (test 0.056 ng/mL See_Comment H [Automated code = 0612962579) message] The system which generated this result [...] ? Lab Interpretation Abnormal (test code = 97591-7) [facility]AL [id number] 00:04:00 Test Item Value Reference Range Interpretation Comments NT-proBNP (test code 562 pg/mL See_Comment H [Autom ated = 2516777519) message] The system which generated this result transmitted reference range : <=450. The reference range was not used to interpret this result as normal/abnormal . ALYSSA (test code = ALYSSA) Biotin has been reported to cause a negative bias, interpret results relative to patient's use of biotin. Lab Interpretation Abnormal (test code = 19239-9) [facility]iscoProthrombin Time (PT) / [id number] 23:57:00 Test Item Value Reference Range Interpretation [...] tions. Lab Interpretation (test Normal code = 18921-7) [facility] Met[facility] (NA, K, CL, CO2, GLUCOSE, BUN, CREATININE, [place])2020-03-04 23:56:00 Test Item Value Reference Range Interpretation Comments NA (test code = 139 mmol/L 135-145 4136600538) K (test code = 4.1 mmol/L 3.5-5 6780783461) CL (test code = 102 mmol/L 98-108 4981091863) CO2 TOTAL (test code = 29 mmol/L 23-31 2405270229) AGAP (test code = 2-16 5465530889) BUN (test code = 23 mg/dL 7-23 8097607835) GLUCOSE (test code = 193 mg/dL 70-110 H 3832530111) CREATININE (test code = 1.25 mg/dL 0.6-1.25 7159095045) CALCIUM (test code = 9.7 mg/dL 8.6-10.6 9453021765) eGFR Calculation mL/min/1.73m2 (Non-) (test code = 9852012807) eGFR Calculation mL/min/1.73m2 () (test code = 1429410045) ALYSSA (test code = ALYSSA) Association of [...] tests). Lab Interpretation Abnormal (test code = 43737-3) [facility]iscoHepatic Function Panel (ALB, T.PRO, BILI T, BU/BC, ALT, AST, ALK PHOS)2020-03-04 23:56:00 Test Item Value Reference Range Interpretation Comments TOTAL BILI (test code = 3183403214) 1.1 mg/dL 0.1-1.1 BILI UNCON (test code = 4396072254) 1.1 mg/dL 0.1-1.1 BILI CONJ (test code = 9451069031) 0.0 mg/dL 0-0.3 T PROTEIN (test code = 6766687878) 7.1 g/dL 6.3-8.2 ALBUMIN (test code = 8254350254) 4.1 g/dL 3.5-5 ALK PHOS (test code = 4047007783) 61 U/L 34-122 ALTv (test code = 1742-6) 16 U/L 5-50 AST(SGOT) (test code = 9311200728) 23 U/L 13-40 Lab Interpretation (test code = Normal 30566-5) [facility]iscoLipase [id number] 23:56:00 Test Item Value Reference Range Interpretation Comments LIPASE (test code = 1464200595) 149 U/L 0-220 Lab Interpretation (test code = Normal 09173-1) [facility]iscoaPTT2020-04-19 23:56:00 Test Item Value Reference Range Interpretation Comments APTT Patient (test See_Comment [Automat ed code = 3173-2) message] The system which generated this result transmitted reference range : 23 - 38 Seconds . The reference range was not used to interpr et this result as normal/abnormal . ALYSSA (test code = ALYSSA) The [facility] patient population mean normal value for aPTT is 30 seconds. Lab Interpretation Normal (test code = 27980-5) [facility]iscoCBC WITH [id number] 23:46:00 Test Item Value Reference Range Interpretation Comments WBC (test code = See_Comment [Automated 1590-2) message] The sy stem which generated this result transmitted reference range : 4.20 - 10.70 10*3/?L. The reference range was not used to interpret this result as normal/abnormal . RBC (test code = See_Comment L [Automated 579-8) message] The sy stem which generated this [...] RDW-SD (test code = 48.3 fL 38.5-51.6 11715-1) RDW-CV (test code = 14.7 % 12.1-15.4 788-0) PLT (test code = See_Comment [Automated 777-3) message] The sy stem which generated this result transmitted reference range : 150 - 328 10*3/ ?L. The reference r corey was not used to interpret this result as normal/abnormal . MPV (test code = 9.8 fL 9.8-13 74491-4) NRBC/100 WBC (test See_Comment [Automat ed code = 8296059602) message] The system which generated this result transmitted reference range : 0.0 - 10.0 /100 WBCs. The refer ence range was not u sed to interpret th is result as normal/abnormal . NRBC x10^3 (test code <0.01 See_Comment [Auto mated = 5639707546) message] The s ystem which generated this result transmitted reference range : 10*3/?L. The reference range was not used to interpret this result as normal/abnormal . GRAN MAT (NEUT) % 60.1 % (test code = 770-8) IMM GRAN % (test code 0.20 % = 7272475067) LYMPH % (test code = 26.4 % 736-9) MONO % (test code = 9.9 % 5905-5) EOS % (test code = 2.8 % 713-8) BASO % (test code = 0.6 % 706-2) GRAN MAT x10^3(ANC) 3.17 10*3/uL 1.99-6.95 (test code = 9585913434) IMM GRAN x10^3 (test <0.03 0-0.06 code = 1432283193) LYMPH x10^3 (test code 1.39 10*3/uL 1.09-3.23 = 731-0) MONO x10^3 (test code 0.52 10*3/uL 0.36-1.02 = 742-7) EOS x10^3 (test code = 0.15 10*3/uL 0.06-0.53 711-2) BASO x10^3 (test code 0.03 10*3/uL 0.01-0.09 = 704-7) Lab Interpretation Abnormal (test code = 29251-6) [facility] GLUCOSE (AUTOMATED)2020-03-02 16:04:00 Test Item Value Reference Range Interpretation Comments POCT GLU (test code = 6296057183) 214 mg/dL 70-110 H Lab Interpretation (test code = Abnormal 62508-6) [facility] GLUCOSE (AUTOMATED)2020-03-02 16:04:00 Test Item Value Reference Range Interpretation Comments POCT GLU (test code = 5114424865) 271 mg/dL 70-110 H Lab Interpretation (test code = Abnormal 10308-0) [facility] [id number] 09:43:00 Test Item Value Reference Range Interpretation Comments NT-proBNP (test code 1670 pg/mL See_Comment H [Autom ated = 7204289383) message] The system which generated this result transmitted reference range : <=450. The reference range was not used to interpret this result as normal/abnormal . ALYSSA (test code = ALYSSA) Biotin has been reported to cause a negative bias, interpret results relative to patient's use of biotin. Lab Interpretation Abnormal (test code = 61186-3) [facility] METABOLIC PANEL (NA, K, CL, CO2, GLUCOSE, BUN, CREATININE, CA)2020-03-02 09:33:00 Test Item Value Reference Range Interpretation Comments NA (test code = 143 mmol/L 135-145 2935201449) K (test code = 3.8 mmol/L 3.5-5 0077617945) CL (test code = 105 mmol/L 98-108 5615946439) CO2 TOTAL (test code = 28 mmol/L 23-31 4872296080) AGAP (test code = 2-16 6908154261) BUN (test code = 19 mg/dL 7-23 4840453213) GLUCOSE (test code = 152 mg/dL 70-110 H 1739014550) CREATININE (test code = 1.18 mg/dL 0.6-1.25 9405609848) CALCIUM (test code = 9.0 mg/dL 8.6-10.6 9983577210) eGFR Calculation mL/min/1.73m2 (Non-) (test code = 5045691897) eGFR Calculation mL/min/1.73m2 () (test code = 7608612782) ALYSSA (test code = ALYSSA) Association of [...] tests). Lab Interpretation Abnormal (test code = 69101-8) [facility] Test Item Value Reference Range Interpretation Comments MAGNESIUM (test code = 2653015596) 1.8 mg/dL 1.7-2.4 Lab Interpretation (test code = Normal 61368-5) [facility]2020-[facility]-01 20:42:00 Test Item Value Reference Range Interpretation Comments POCT GLU (test code = 9658127942) 231 mg/dL 70-110 H Lab Interpretation (test code = Abnormal 41202-7) [facility]iscoVITAMIN B12, [id number] 11:51:00 Test Item Value Reference Range Interpretation Comments VIT B12 (test code = 325 pg/mL 240-930 5509863184) ALYSSA (test code = ALYSSA) Biotin has been reported to cause a positive bias, interpret results relative to patient's use of biotin. Lab Interpretation (test Normal code = 80211-8) [facility]iscoFOLATE2020-04-16 11:49:00 Test Item Value Reference Range Interpretation Comments FOLATE SER (test code = >20.0 3-20 H Slig ht hemolysis 5156651883) Lab Interpretation (test Abnormal code = 05019-4) [facility]iscoPROCALCITONIN2020-04-16 10:49:00 Test Item Value Reference Range Interpretation Comments Procalcitonin (test 3.05 ng/mL <0.07 H code = 3679624457) ALYSSA (test code = ALYSSA) INTERPRETATION OF [...] biotics/default.asp Lab Interpretation Abnormal (test code = 75495-4) [facility]iscoKARINSANTOS [id number] 09:58:00 Test Item Value Reference Range Interpretation Comments TROPONIN I (test 0.093 ng/mL See_Comment H [Automated code = 5413339821) message] The system which generated this result [...] ? Lab Interpretation Abnormal (test code = 28875-2) [facility] [id number] 09:55:00 Test Item Value Reference Range Interpretation Comments NT-proBNP (test code 4450 pg/mL See_Comment H [Autom ated = 7096109655) message] The system which generated this result transmitted reference range : <=450. The reference range was not used to interpret this result as normal/abnormal . ALYSSA (test code = ALYSSA) Biotin has been reported to cause a negative bias, interpret results relative to patient's use of biotin. Lab Interpretation Abnormal (test code = 47178-2) [facility] (NA, K, CL, CO2, GLUCOSE, BUN, CREATININE, CA)2020-03-01 09:50:00 Test Item Value Reference Range Interpretation Comments NA (test code = 141 mmol/L 135-145 4537733632) K (test code = 3.5 mmol/L 3.5-5 3743398169) CL (test code = 105 mmol/L 98-108 7813883186) CO2 TOTAL (test code = 26 mmol/L 23-31 9961002032) AGAP (test code = 2-16 9197041605) BUN (test code = 13 mg/dL 7-23 5421651551) GLUCOSE (test code = 219 mg/dL 70-110 H 5952920280) CREATININE (test code = 1.01 mg/dL 0.6-1.25 3499508996) CALCIUM (test code = 8.7 mg/dL 8.6-10.6 3524363878) eGFR Calculation mL/min/1.73m2 (Non-) (test code = 4877241872) eGFR Calculation mL/min/1.73m2 () (test code = 0388627985) ALYSSA (test code = ALYSSA) Association of [...] tests). Lab Interpretation Abnormal (test code = 73673-2) [facility] [id number] 09:50:00 Test Item Value Reference Range Interpretation Comments MAGNESIUM (test code = 5693263801) 1.9 mg/dL 1.7-2.4 Lab Interpretation (test code = Normal 91446-4) [facility] WITH [id number] 09:22:00 Test Item Value Reference Range Interpretation [...] RDW-SD (test code = 47.8 fL 38.5-51.6 47048-8) RDW-CV (test code = 14.8 % 12.1-15.4 788-0) PLT (test code = See_Comment L [Automated 777-3) message] The sy stem which generated this result transmitted reference range : 150 - 328 10*3/ ?L. The reference r corey was not used to interpret this result as normal/abnormal . MPV (test code = 9.9 fL 9.8-13 83359-6) NRBC/100 WBC (test See_Comment [Automat ed code = 3849444380) message] The system which generated this result transmitted reference range : 0.0 - 10.0 /100 WBCs. The refer ence range was not u sed to interpret th is result as normal/abnormal . NRBC x10^3 (test code <0.01 See_Comment [Auto mated = 2165255823) message] The s ystem which generated this result transmitted reference range : 10*3/?L. The reference range was not used to interpret this result as normal/abnormal . GRAN MAT (NEUT) % 66.0 % (test code = 770-8) IMM GRAN % (test code 0.30 % = 8608550538) LYMPH % (test code = 20.8 % 736-9) MONO % (test code = 9.5 % 5905-5) EOS % (test code = 2.8 % 713-8) BASO % (test code = 0.6 % 706-2) GRAN MAT x10^3(ANC) 4.44 10*3/uL 1.99-6.95 (test code = 4753330924) IMM GRAN x10^3 (test <0.03 0-0.06 code = 0924091202) LYMPH x10^3 (test code 1.40 10*3/uL 1.09-3.23 = 731-0) MONO x10^3 (test code 0.64 10*3/uL 0.36-1.02 = 742-7) EOS x10^3 (test code = 0.19 10*3/uL 0.06-0.53 711-2) BASO x10^3 (test code 0.04 10*3/uL 0.01-0.09 = 704-7) Lab Interpretation Abnormal (test code = 63905-7) [facility]A1C)2020-03-01 06:49:00 Test Item Value Reference [...] Indicated Lab Interpretation Abnormal (test code = 08718-9) [facility]iscoUR[facility] [id number] 06:25:00 Test Item Value Reference Range Interpretation Comments URIC ACID (test code = 8572438988) 2.3 mg/dL 3.6-8 L Lab Interpretation (test code = Abnormal 74687-9) [facility]iscoSEDIMENTATION [id number] 05:25:00 Test Item Value Reference Range Interpretation Comments ESR (test code = See_Comment H [Automated message] 3434547104) The system [employer] h generated this result transmitted ref erence range: 0 - 10 m m/HR. The reference r corey was not used to interpret this result as normal/abnor mal. Lab Interpretation (test Abnormal code = 71041-0) [facility]iscoN-TERMINAL [id number] 04:07:00 Test Item Value Reference Range Interpretation Comments NT-proBNP (test code 4080 pg/mL See_Comment H [Autom ated = 6550916613) message] The system which generated this result transmitted reference range : <=450. The reference range was not used to interpret this result as normal/abnormal . ALYSSA (test code = ALYSSA) Biotin has been reported to cause a negative bias, interpret results relative to patient's use of biotin. Lab Interpretation Abnormal (test code = 97253-3) [facility]PO[facility]ATED)2020-03-01 03:42:00 Test Item Value Reference Range Interpretation Comments POCT GLU (test code = 9105542735) 190 mg/dL 70-110 H Lab Interpretation (test code = Abnormal 02446-3) [facility]iscoTROPONIN [id number] 03:30:00 Test Item Value Reference Range Interpretation Comments TROPONIN I (test 0.098 ng/mL See_Comment H [Automated code = 0069878431) message] The system which generated this result [...] ? Lab Interpretation Abnormal (test code = 29590-0) [facility]iscoHEPATIC FUNCTION PANEL (33261) (ALB,T.PRO,BILI T,BU/BC,ALT,AST,ALK PHOS)2020-03-01 03:24:00 Test Item Value Reference Range Interpretation Comments TOTAL BILI (test code = 6847590862) 2.2 mg/dL 0.1-1.1 H BILI UNCON (test code = 8554458582) 2.0 mg/dL 0.1-1.1 H BILI CONJ (test code = 1833730615) 0.0 mg/dL 0-0.3 T PROTEIN (test code = 8296007779) 6.7 g/dL 6.3-8.2 ALBUMIN (test code = 1759923542) 4.0 g/dL 3.5-5 ALK PHOS (test code = 1613760386) 48 U/L 34-122 ALTv (test code = 1742-6) 18 U/L 5-50 AST(SGOT) (test code = 9144882442) 57 U/L 13-40 H Lab Interpretation (test code = Abnormal 98497-8) [facility]iscoPhosphorus [id number] 03:17:00 Test Item Value Reference Range Interpretation Comments PHOSPHORUS (test code = 3.1 mg/dL 2.5-5 Slig ht hemolysis 3437944803) Lab Interpretation (test Normal code = 32763-8) [facility]iscoPROTHROMBIN TIME / [id number] 03:08:00 Test Item Value Reference Range Interpretation [...] tions. Lab Interpretation (test Normal code = 38339-2) [facility]iscoCREATINE [id number] 03:01:00 Test Item Value Reference Range Interpretation Comments CK (test code = 8608231479) 68 U/L 33-194 Lab Interpretation (test code = Normal 18065-4) [facility]iscoURIC [id number] 02:41:00 Test Item Value Reference Range Interpretation Comments URIC ACID (test code = 4069616845) 2.3 mg/dL 3.6-8 L Lab Interpretation (test code = Abnormal 59181-7) [facility]iscoTHYROID STIMULATING [id number] 02:26:00 Test Item Value Reference Range Interpretation Comments TSH (test code = See_Comment [Automated message] 8043340742) The system Bul[employer] h generated this result transmitted ref erence range: 0.45 - 4 .70 mIU/L. The refe rence range was not u sed to interpret this result as normal/abnor mal. Lab Interpretation (test Normal code = 15722-1) [facility]iscoN-TERMINAL [id number] 02:04:00 Test Item Value Reference Range Interpretation Comments NT-proBNP (test code 4390 pg/mL See_Comment H [Autom ated = 9534627248) message] The system which generated this result transmitted reference range : <=450. The reference range was not used to interpret this result as normal/abnormal . ALYSSA (test code = ALYSSA) Biotin has been reported to cause a negative bias, interpret results relative to patient's use of biotin. Lab Interpretation Abnormal (test code = 07768-1) [facility]iscoMAGNESIUM2020-04-16 02:01:00 Test Item Value Reference Range Interpretation Comments MAGNESIUM (test code = 4808571156) 1.5 mg/dL 1.7-2.4 L Lab Interpretation (test code = Abnormal 05381-8) [facility]iscoLIPASE2020-04-16 00:22:00 Test Item Value Reference Range Interpretation Comments LIPASE (test code = 5372902479) 68 U/L 0-220 Lab Interpretation (test code = Normal 78618-6) [facility]iscoCORONAVIRUS COVID-19 [id number] 23:42:00 Test Item Value Reference Range Interpretation Comments SARS-CoV-2 (test code = Not Detected Not Detected 99611-7) ALYSSA (test code = ALYSSA) ID NOW COVID-19 Assay is an isothermal nucleic acid amplification test intended for the qualitative detection of nucleic acid from SARS-CoV-2 viral RNA in nasopharyngeal (INSURANCE EXAMINER) specimens. It is used under Emergency Use [...] indicated. Lab Interpretation Normal (test code = 73759-2) [facility] FriscoXR CHEST 1 VW [id number] 23:26:02 No acute intrathoracic abnormality, specifically no radiographic findingsto suggest COVID-19 pneumonia. Disclaimer: Generally, the findings on chest imaging in COVID-19 are notspecific, and overlap with other infections, including influenza, H1N1,SARS and MERS. According to the Centers for Disease Control (CDC) and recent statement ofthe [employer], viral testing remains the [...] stimulating device overlie the mid thoracic spine. [facility], Radiant ResultsInft User - 02/29/2020 [...] Disease Control (CDC) and recent statement ofthe [employer], viral testing remains the only specificmethod of diagnosis. Confirmation with the viral test is required, even ifradiologic findings are suggestive of COVID-[address] Preliminary Report Dictated by Resident: Radu Boo MD., have reviewed this study and agree with theabovereport.[facility]iscoKarinopoab [id number] 22:59:00 Test Item Value Reference Range Interpretation Comments TROPONIN I (test 0.071 ng/mL See_Comment H [Automated code = 1656900464) message] The system which generated this result [...] ? Lab Interpretation Abnormal (test code = 94340-7) [facility] (NA, K, CL, CO2, GLUCOSE, BUN, CREATININE, CA)2020-02-29 22:48:00 Test Item Value Reference Range Interpretation Comments NA (test code = 141 mmol/L 135-145 4444261012) K (test code = 3.2 mmol/L 3.5-5 L 4853775334) CL (test code = 104 mmol/L 98-108 5284607220) CO2 TOTAL (test code = 25 mmol/L 23-31 2432577073) AGAP (test code = 2-16 0330736445) BUN (test code = 12 mg/dL 7-23 3573462825) GLUCOSE (test code = 250 mg/dL 70-110 H 0927509911) CREATININE (test code = 1.02 mg/dL 0.6-1.25 7919226658) CALCIUM (test code = 8.9 mg/dL 8.6-10.6 4154599202) eGFR Calculation mL/min/1.73m2 (Non-) (test code = 6052154131) eGFR Calculation mL/min/1.73m2 () (test code = 5695536032) ALYSSA (test code = ALYSSA) Association of [...] tests). Lab Interpretation Abnormal (test code = 62468-8) [facility] WITH [id number] 22:41:00 Test Item Value Reference Range Interpretation [...] RDW-SD (test code = 46.6 fL 38.5-51.6 30959-7) RDW-CV (test code = 14.6 % 12.1-15.4 788-0) PLT (test code = See_Comment [Automated 777-3) message] The sy stem which generated this result transmitted reference range : 150 - 328 10*3/ ?L. The reference r corey was not used to interpret this result as normal/abnormal . MPV (test code = 9.7 fL 9.8-13 L 20807-3) NRBC/100 WBC (test See_Comment [Automat ed code = 0123165912) message] The system which generated this result transmitted reference range : 0.0 - 10.0 /100 WBCs. The refer ence range was not u sed to interpret th is result as normal/abnormal . NRBC x10^3 (test code <0.01 See_Comment [Auto mated = 1919861050) message] The s ystem which generated this result transmitted reference range : 10*3/?L. The reference range was not used to interpret this result as normal/abnormal . GRAN MAT (NEUT) % 68.6 % (test code = 770-8) IMM GRAN % (test code 0.30 % = 5702918700) LYMPH % (test code = 18.6 % 736-9) MONO % (test code = 10.1 % 5905-5) EOS % (test code = 1.8 % 713-8) BASO % (test code = 0.6 % 706-2) GRAN MAT x10^3(ANC) 4.29 10*3/uL 1.99-6.95 (test code = 0278351268) IMM GRAN x10^3 (test <0.03 0-0.06 code = 8427409748) LYMPH x10^3 (test code 1.16 10*3/uL 1.09-3.23 = 731-0) MONO x10^3 (test code 0.63 10*3/uL 0.36-1.02 = 742-7) EOS x10^3 (test code = 0.11 10*3/uL 0.06-0.53 711-2) BASO x10^3 (test code 0.04 10*3/uL 0.01-0.09 = 704-7) Lab Interpretation Abnormal (test code = 35162-1) [facility]iscoLactic Acid Whole [id number] 22:38:00 Test Item Value Reference Range Interpretation Comments LACTIC ACID (test code = 1.88 mmol/L 0.3-2.6 6832905670) [facility]iscoPO[facility] GLU[facility]SE (AUTOMATED)2020-01-17 18:18:00 Test Item Value Reference Range Interpretation Comments POCT GLU (test code = 8175096681) 290 mg/dL 70-110 H Lab Interpretation (test code = Abnormal 29909-5) [facility]iscoTROPONIN [id number] 18:01:00 Test Item Value Reference Range Interpretation Comments TROPONIN I (test 0.065 ng/mL See_Comment H [Automated code = 0056902098) message] The system which generated this result [...] ? Lab Interpretation Abnormal (test code = 03163-2) [facility]iscoaPTT2020-03-03 17:10:00 Test Item Value Reference Range Interpretation Comments APTT Patient (test See_Comment H [Automat ed code = 3173-2) message] The system which generated this result transmitted reference range : 23 - 38 Seconds . The reference range was not used to interpr et this result as normal/abnormal . ALYSSA (test code = ALYSSA) The [facility] patient population mean normal value for aPTT is 30 seconds. Lab Interpretation Abnormal (test code = 52307-3) [facility]iscoPONE GLUCOSE (AUTOMATED)2020-01-17 11:59:00 Test Item Value Reference Range Interpretation Comments POCT GLU (test code = 1481643118) 185 mg/dL 70-110 H Lab Interpretation (test code = Abnormal 19235-2) [facility]iscoTROPONIN [id number] 11:23:00 Test Item Value Reference Range Interpretation Comments TROPONIN I (test 0.073 ng/mL See_Comment H [Automated code = 8631447976) message] The system which generated this result [...] ? Lab Interpretation Abnormal (test code = 40008-6) [facility] Metabolic Panel (NA, K, CL, CO2, GLUCOSE, BUN, CREATININE, CA)2020-01-17 11:16:00 Test Item Value Reference Range Interpretation Comments NA (test code = 136 mmol/L 135-145 2186750115) K (test code = 3.3 mmol/L 3.5-5 L 3415522413) CL (test code = 101 mmol/L 98-108 5293522125) CO2 TOTAL (test code = 26 mmol/L 23-31 4070089970) AGAP (test code = 2-16 9277318678) BUN (test code = 19 mg/dL 7-23 2613181870) GLUCOSE (test code = 227 mg/dL 70-110 H 3040751322) CREATININE (test code = 1.33 mg/dL 0.6-1.25 H 3034637728) CALCIUM (test code = 9.1 mg/dL 8.6-10.6 7806374797) eGFR Calculation mL/min/1.73m2 (Non-) (test code = 2760924059) eGFR Calculation mL/min/1.73m2 () (test code = 3530421193) ALYSSA (test code = ALYSSA) Association of [...] tests). Lab Interpretation Abnormal (test code = 23765-0) [facility]aPTT2020-03-03 11:00:00 Test Item Value Reference Range Interpretation Comments APTT Patient (test See_Comment H [Automat ed code = 3173-2) message] The system which generated this result transmitted reference range : 23 - 38 Seconds . The reference range was not used to interpr et this result as normal/abnormal . ALYSSA (test code = ALYSSA) The [facility] patient population mean normal value for aPTT is 30 seconds. Lab Interpretation Abnormal (test code = 18503-3) [facility]iscoCBC WITH [id number] 10:43:00 Test Item Value Reference Range Interpretation Comments WBC (test code = See_Comment [Automated message] 6690-2) The system [place] generated this result transmitted ref erence range: 4.20 - 1 0.70 10*3/?L. The re ference range was not u sed to interpret this result as normal/abnor mal. RBC (test code = See_Comment [Automated message] 789-8) The system [place] generated this result transmitted ref erence range: [...] RDW-SD (test code 41.5 fL 38.5-51.6 = 74871-9) RDW-CV (test code 12.8 % 12.1-15.4 = 788-0) PLT (test code = See_Comment [Automated message] 607-3) The system [place] generated this result transmitted ref erence range: 150 - 32 8 10*3/?L. The re ference range was not u sed to interpret this result as normal/abnor mal. MPV (test code = 10.7 fL 9.8-13 42613-1) NRBC/100 WBC (test See_Comment [Automat ed message] code = 6732205579) The syste m which generated this result transmitted ref erence range: 0.0 - 10 .0 /100 WBCs. The refer ence range was not u sed to interpret this result as normal/abnor mal. NRBC x10^3 (test <0.01 See_Comment [Automated message] code = 1311621513) The syste m which generated this result transmitted ref erence range: 10*3/?L. The reference range was not used to interpr et this result as normal/abnormal . GRAN MAT (NEUT) % 56.1 % (test code = 770-8) IMM GRAN % (test 0.30 % code = 1501543912) LYMPH % (test code 29.5 % = 736-9) MONO % (test code 9.9 % = 5905-5) EOS % (test code = 3.3 % 713-8) BASO % (test code 0.9 % = 706-2) GRAN MAT 3.73 10*3/uL 1.99-6.95 x10^3(ANC) (test code = 5552577101) IMM GRAN x10^3 <0.03 0-0.06 (test code = 1060007698) LYMPH x10^3 (test 1.96 10*3/uL 1.09-3.23 code = 731-0) MONO x10^3 (test 0.66 10*3/uL 0.36-1.02 code = 742-7) EOS x10^3 (test 0.22 10*3/uL 0.06-0.53 code = 711-2) BASO x10^3 (test 0.06 10*3/uL 0.01-0.09 code = 704-7) [facility] GLUCOSE (AUTOMATED)2020-01-17 01:49:00 Test Item Value Reference Range Interpretation Comments POCT GLU (test code = 4077919625) 305 mg/dL 70-110 H Lab Interpretation (test code = Abnormal 81773-9) [facility]2020-01-17 00:01:00 Test Item Value Reference Range Interpretation Comments POCT GLU (test code = 3899524240) 271 mg/dL 70-110 H Lab Interpretation (test code = Abnormal 87693-9) [facility]aPTT2020-03-02 22:23:00 Test Item Value Reference Range Interpretation Comments APTT Patient (test See_Comment H [Automat ed code = 3173-2) message] The system which generated this result transmitted reference range : 23 - 38 Seconds . The reference range was not used to interpr et this result as normal/abnormal . ALYSSA (test code = ALYSSA) The [facility] patient population mean normal value for aPTT is 30 seconds. Lab Interpretation Abnormal (test code = 41186-0) [facility]iscoTROPONIN [id number] 21:22:00 Test Item Value Reference Range Interpretation Comments TROPONIN I (test 0.061 ng/mL See_Comment H [Automated code = 6996916565) message] The system which generated this result [...] ? Lab Interpretation Abnormal (test code = 04441-3) [facility]2020-01-16 17:37:00 Test Item Value Reference Range Interpretation Comments POCT GLU (test code = 4598339634) 271 mg/dL 70-110 H Lab Interpretation (test code = Abnormal 83188-5) [facility]aPTT2020-03-02 12:47:00 Test Item Value Reference Range Interpretation Comments APTT Patient (test See_Comment HH [Automat ed code = 3173-2) message] The system which generated this result transmitted reference range : 23 - 38 Seconds . The reference range was not used to interpr et this result as normal/abnormal . ALYSSA (test code = ALYSSA) The [facility] patient population mean normal value for aPTT is 30 seconds. Lab Interpretation Abnormal (test code = 09521-1) [facility]iscoTROPONIN [id number] 12:35:00 Test Item Value Reference Range Interpretation Comments TROPONIN I (test 0.074 ng/mL See_Comment H [Automated code = 8617247488) message] The system which generated this result [...] ? Lab Interpretation Abnormal (test code = 45093-9) [facility]iscoLIPID PANEL (38699)(TOTAL CHOLESTEROL, TRIGLYCERIDES, HDL)2020-01-16 12:23:00 Test Item Value Reference Range Interpretation Comments CHOL (test code = 95 mg/dL 120-200 L 7054267698) HDL (test code = 44 mg/dL >40 4760119431) HDLC RATIO (test code = See_Comment [Au tomated message] 5878186369) The system [place] generated this result transmitted ref erence range: <=5.0. T he reference range was not used to int erpret this result as normal/abnormal . TRIG (test code = 89 mg/dL 30-170 3380432329) LDL CHOL (test code = 33 mg/dL See_Comment [Auto mated message] 71922-7) The system [place] generated this result transmitted ref erence range: <=160. T he reference range was not used to int erpret this result as normal/abnormal . VLDL (test code = 18 mg/dL 5-60 3410558453) Lab Interpretation (test Abnormal code = 12426-4) [facility]iscoGlycosylated Hemoglobin (A1C)2020-01-16 09:03:00 Test Item Value Reference [...] Indicated Lab Interpretation Abnormal (test code = 41390-6) [facility]iscoCritical [id number] 05:48:18Charanjit Heck MD ? ? 01/15/2020 11:48 [...] patientUnB[facility] IrvingProthrombin Time (PT) / [id number] 05:28:00 Test Item Value Reference Range Interpretation [...] tions. Lab Interpretation (test Normal code = 63995-5) [facility]aPTT2020-03-02 05:27:00 Test Item Value Reference Range Interpretation Comments APTT Patient (test See_Comment [Automat ed code = 3173-2) message] The system which generated this result transmitted reference range : 23 - 38 Seconds . The reference range was not used to interpr et this result as normal/abnormal . ALYSSA (test code = ALYSSA) The [facility] patient population mean normal value for aPTT is 30 seconds. Lab Interpretation Normal (test code = 52192-4) [facility]iscoTroponin [id number] 05:11:00 Test Item Value Reference Range Interpretation Comments TROPONIN I (test 0.075 ng/mL See_Comment H [Automated code = 8997213941) message] The system which generated this result [...] ? Lab Interpretation Abnormal (test code = 49753-9) [facility]iscoN-TERMINAL [id number] 05:08:00 Test Item Value Reference Range Interpretation Comments NT-proBNP (test code 896 pg/mL See_Comment H [Autom ated = 4890949125) message] The system which generated this result transmitted reference range : <=450. The reference range was not used to interpret this result as normal/abnormal . ALYSSA (test code = ALYSSA) Biotin has been reported to cause a negative bias, interpret results relative to patient's use of biotin. Lab Interpretation Abnormal (test code = 16539-9) [facility]iscoBasi Metabolic Panel (NA, K, CL, CO2, GLUCOSE, BUN, CREATININE, CA)2020-01-16 04:59:00 Test Item Value Reference Range Interpretation Comments NA (test code = 136 mmol/L 135-145 9922519062) K (test code = 4.0 mmol/L 3.5-5 8096101803) CL (test code = 101 mmol/L 98-108 7606085795) CO2 TOTAL (test code = 27 mmol/L 23-31 2773534848) AGAP (test code = 2-16 8855027165) BUN (test code = 17 mg/dL 7-23 1732360891) GLUCOSE (test code = 445 mg/dL 70-110 H 4243473974) CREATININE (test code = 1.29 mg/dL 0.6-1.25 H 6508954902) CALCIUM (test code = 8.8 mg/dL 8.6-10.6 0467779005) eGFR Calculation mL/min/1.73m2 (Non-) (test code = 1498681043) eGFR Calculation mL/min/1.73m2 () (test code = 6158860617) ALYSSA (test code = ALYSSA) Association of [...] tests). Lab Interpretation Abnormal (test code = 45498-2) [facility]iscoHepatic Function Panel (ALB, T.PRO, BILI T, BU/BC, ALT, AST, ALK PHOS)2020-01-16 04:59:00 Test Item Value Reference Range Interpretation Comments TOTAL BILI (test code = 4389123439) 1.3 mg/dL 0.1-1.1 H BILI UNCON (test code = 4597896649) 1.1 mg/dL 0.1-1.1 BILI CONJ (test code = 2578368749) 0.0 mg/dL 0-0.3 T PROTEIN (test code = 4214401831) 6.3 g/dL 6.3-8.2 ALBUMIN (test code = 0153850904) 3.9 g/dL 3.5-5 ALK PHOS (test code = 8608318672) 67 U/L 34-122 ALTv (test code = 1742-6) 15 U/L 5-50 AST(SGOT) (test code = 6478488583) 23 U/L 13-40 Lab Interpretation (test code = Abnormal 24191-3) [facility] 1 [id number] 04:54:13Impression: Moderate cardiomegaly without acute pulmonary process. RL: 460 AFC: [id number] Indication: Chest pain Comparison: None available Findings: Single AP view of the chest. The cardiopericardial silhouette ismoderately enlarged. The lungs are clear bilaterally. The visualized bonythorax is intact. A thoracic neurostimulator device is in place. [facility], Radiant Results Inft User - 01/15/2020 10:55 PM CSTIndication: Chest painComparison: None availableFindings: Single AP view of the chest. The cardiopericardial silhouette ismoderately enlarged. The lungs are clear bilaterally. The visualized bonythorax is intact. A thoracic neurostimulator device is in place.IMPRESSIONImpression:Moderate cardiomegaly without acute pulmonary process.RL: 460AFC: [id number] signed by Esperanza Rosado MD, PhD at 01/15/2020 10:54 PMUnKimball [facility] WITH [id number] 04:51:00 Test Item Value Reference Range Interpretation Comments WBC (test code = See_Comment [Automated 5790-2) message] The sy stem which generated this result transmitted reference range : 4.20 - 10.70 10*3/?L. The reference range was not used to interpret this result as normal/abnormal . RBC (test code = See_Comment L [Automated 459-8) message] The sy stem which generated this [...] RDW-SD (test code = 40.7 fL 38.5-51.6 17033-3) RDW-CV (test code = 12.8 % 12.1-15.4 788-0) PLT (test code = See_Comment L [Automated 777-3) message] The sy stem which generated this result transmitted reference range : 150 - 328 10*3/ ?L. The reference r corey was not used to interpret this result as normal/abnormal . MPV (test code = 10.6 fL 9.8-13 99271-8) IPF % (test code = 2.8 % 1.2-10.7 Platelet count 5953124713) measured by fluorescence method. NRBC/100 WBC (test See_Comment [Automat ed code = 7521473463) message] The system which generated this result transmitted reference range : 0.0 - 10.0 /100 WBCs. The refer ence range was not u sed to interpret th is result as normal/abnormal . NRBC x10^3 (test code <0.01 See_Comment [Auto mated = 8335275396) message] The s ystem which generated this result transmitted reference range : 10*3/?L. The reference range was not used to interpret this result as normal/abnormal . GRAN MAT (NEUT) % 56.0 % (test code = 770-8) IMM GRAN % (test code 0.20 % = 4290608000) LYMPH % (test code = 30.5 % 736-9) MONO % (test code = 9.6 % 5905-5) EOS % (test code = 2.8 % 713-8) BASO % (test code = 0.9 % 706-2) GRAN MAT x10^3(ANC) 2.98 10*3/uL 1.99-6.95 (test code = 7715860987) IMM GRAN x10^3 (test <0.03 0-0.06 code = 2185512477) LYMPH x10^3 (test code 1.62 10*3/uL 1.09-3.23 = 731-0) MONO x10^3 (test code 0.51 10*3/uL 0.36-1.02 = 742-7) EOS x10^3 (test code = 0.15 10*3/uL 0.06-0.53 711-2) BASO x10^3 (test code 0.05 10*3/uL 0.01-0.09 = 704-7) Lab Interpretation Abnormal (test code = 07503-9) [facility]"
[2022-04-10] MEDS ORDERED: ONDANSETRON 4 MG/2 ML VIAL ONE (12:18)
[2022-04-10] MEDS ORDERED: NA CHLORIDE 0.9% 1,000 ML ONE (12:18)
[2022-04-10] MEDS ORDERED: FENTANYL CITR 100 MCG/2 ML ONE (12:18)
[2022-04-10] MEDS ORDERED: dexAMETHasone 10 MG/ML VIAL ONE (12:22)
[2022-04-10] MEDS ORDERED: DIAZEPAM 5 MG TABLET ONE (12:22)
[2022-04-10 12:27] LABS: Absolute Lymphocytes (CBC) 0.9 K/uL (0.7-4.9); Hematocrit 36.6 % (39.6-49.0); Lymphocytes % 9.7 % (15.3-44.8); MPV 8.1 fL (7.6-11.3); RBC Red Blood Cell Count 3.87 M/uL (4.33-5.43)
[2022-04-10 12:45] LABS: Albumin 3.2 g/dL (3.4-5.0); Protein, Total 6.4 g/dL (6.4-8.2)
--- NOTE | 2022-04-10 12:56 | RAD REPORT ---
EXAM DESCRIPTION: RAD - Pelvis - 04/10/2022 12:35 pm CLINICAL HISTORY: Pelvic pain FINDINGS: No fracture or dislocation is seen. Mild osteoarthritis involves the hips mainly consisting joint space narrowing and subchondral scleros is. Penile implant. Neurostimulator device in place. Postsurgical changes lower lumbar spine
--- NOTE | 2022-04-10 13:23 | ER ---
Nurse's Notes [facility] Name: Demetrius Sarmiento Age: 81 yrs Sex: Male : 1940 Arrival Date: 04/10/2022 Time: 11:34 Bed 9 Private MD: Diagnosis: Sciatica, left side;Pain in left lower leg;Other chronic pain Presentation: 04/10 11:34 Chief complaint: Patient states: he has been having left leg pain for approx one month ap3 now and has been seen by multiple facilities and providers. Patient states he was dx with sciatica. Patient reports being recently evaluated by his pain management provider and had an MRI done, but has yet received the results. Coronavirus screen: At this time, the client does not indicate any symptoms associated with coronavirus-19. Ebola Screen: No symptoms or risks identified at this time. Initial Sepsis Screen: Does the patient meet any 2 criteria? No. Patient's initial sepsis screen is negative. Does the patient have a suspected source of infection? No. Patient's initial sepsis screen is negative. Risk Assessment: Do you want to hurt yourself or someone else? Patient reports no desire to harm self or others. Onset of symptoms was February 2022. 11:34 Method Of Arrival: [facility] ap3 11:34 Acuity: LANCE 4 ap3 Triage Assessment: 11:41 General: Appears uncomfortable, Behavior is calm, cooperative, repeating "ow!". Pain: ap3 Complains of pain in left leg. Neuro: Level of Consciousness is awake, alert, obeys commands, Oriented to person, place, time, situation, Speech is normal. Cardiovascular: Patient's skin is warm and dry. Respiratory: Airway is patent Respiratory effort is even, unlabored, Respiratory pattern is regular, symmetrical. Musculoskeletal: Reports pain in left leg since approx one month a go. Historical: - Allergies: 11:38 No Known Allergies; ap3 - Home Meds: 11:38 atorvastatin oral [Active]; donepezil oral [Active]; Furosemide Oral [Active]; Insulin: ap3 Regular Sub-Q [Active]; Isosorbide Dinitrate Oral [Active]; lisinopril Oral [Active]; Nitroglycerin Oral [Active]; Potassium Chloride Oral [Active]; Trazodone Oral [Active]; unknown pain medication [Active]; - PMHx: 11:38 Diabetes mellitus; Hypertensive disorder; Hypercholesterolemia; ap3 - Immunization history:: Client reports receiving the 2nd dose of the Covid vaccine, Flu vaccine is up to date. - Social history:: Smoking status: Patient denies any tobacco usage or history of. - Family history:: not pertinent. Screenin:42 Abuse screen: Denies threats or abuse. Nutritional screening: No deficits noted. ap3 Tuberculosis screening: No symptoms or risk factors identified. Fall Risk Fall in past 12 months (25 points). Secondary diagnosis (15 points) dementia, impaired mobility, No IV (0 pts). Ambulatory Aid- None/Bed Rest/Nurse Assist (0 pts). Gait- Weak (10 pts.). Mental Status- Oriented to own ability (0 pts). Total Torres Fall Scale indicates High Risk Score (45 or more points). Fall prevention measures have been instituted. Side Rails Up X 2 Placed Close to Nursing Station Frequent Obs/Assessments Occuring As available patient and family educated on Fall Prevention Program and Strategies. Assessment: 13:18 Reassessment: Patient and/or family updated on plan of care and expected duration. Pain ap3 level reassessed. Patient is alert, oriented x 3, equal unlabored respirations, skin warm/dry/pink. 14:17 General: patient awaiting transportation home. ap3 Vital Signs: 11:34 BP 120 / 76 RA (auto/reg); Pulse 102; Resp 17; Temp 98.9(O); Pulse Ox 95% on R/A; ap3 Weight 77.11 kg; Height 5 ft. 7 in. (170.18 cm); 13:09 BP 113 / 68; Pulse 104; Pulse Ox 96% on R/A; ap3 11:34 Body Mass Index 26.63 (77.11 kg, 170.18 cm) ap3 ED Course: 11:34 Patient arrived in ED. ap3 11:38 Triage completed. ap3 11:40 Michael Ortega MD is Attending Physician. tadeo 11:43 Arm band placed on left wrist. ap3 11:43 Patient has correct armband on for positive identification. Bed in low position. Call ap3 light in reach. Side rails up X2. Pulse ox on. NIBP on. Door closed. Noise minimized. 12:05 Ruchi Garcia, RN is Primary Nurse. ap3 12:20 Inserted saline lock: 20 gauge in right antecubital area, using aseptic technique. zm Blood collected. 12:21 CBC with Diff Sent. zm 12:21 Comprehensive Metabolic Panel Sent. zm 12:30 Placed in gown. firebreak cutter on. zm 12:30 Initial lab(s) drawn, by me, sent to lab. zm 12:37 Pelvis XRAY In Process Unspecified. EDCT 13:23 Franck Frausto DO is Referral Physician. [facility] 13:53 No provider procedures requiring assistance completed. IV discontinued, intact, ap3 bleeding controlled, No redness/swelling at site. Pressure dressing applied. Administered Medications: 12:27 Drug: Zofran (Ondansetron) 4 mg Route: IVP; Site: right antecubital; ap3 13:09 Follow up: Response: No adverse reaction ap3 12:27 Drug: Valium (diazepam) 5 mg Route: PO; ap3 13:08 Follow up: Response: No adverse reaction ap3 12:27 Drug: Decadron - Dexamethasone 10 mg Route: IVP; Site: right antecubital; ap3 13:09 Follow up: Response: No adverse reaction ap3 12:28 Drug: NS 0.9% 500 ml Route: IV; Rate: bolus; Site: right antecubital; ap3 14:00 Follow up: IV Status: Completed infusion ap3 12:28 Drug: fentaNYL (PF) 50 mcg Route: IVP; Site: right antecubital; ap3 13:09 Follow up: Response: No adverse reaction ap3 13:27 Drug: fentaNYL Patch (50 mcg/hr) 1 patches Route: Transdermal; Site: affected area; ap3 Medication: 11:43 VIS not applicable for this client. ap3 Outcome: 13:23 Discharge ordered by . [facility] 14:00 Condition: good ap3 14:00 Discharge instructions given to patient, Instructed on discharge instructions, follow up and referral plans. medication usage, Demonstrated understanding of instructions, follow-up care, medications, Prescriptions given X 1. 17:39 Patient left the ED. iw Signatures: Dispatcher [employer] Michael Black MD MD cha Williams, Irene RN HERBIE Ruchi Garcia RN RN ap3 Camila Zhu
--- NOTE | 2022-04-10 13:24 | EDPHYS ---
Physician Documentation [facility] Name: Demetrius Sarmiento Age: 81 yrs Sex: Male : 1940 Arrival Date: 04/10/2022 Time: 11:34 Bed 9 Private MD: ED Physician Michael Ortega HPI: 04/10 12:03 This 81 yrs old Male presents to ER via EMS with complaints of low back and tadeo left hip to lower extremity. 12:03 The patient presents with decreased range of motion, pain, that is chronic. The tadeo complaints affect the lateral aspect of left thigh, left hamstring, medial aspect of left thigh and left quadriceps. Context: The problem was sustained at an unknown site. Onset: The symptoms/episode began/occurred 3 month(s) ago. Modifying factors: The symptoms are alleviated by nothing. the symptoms are aggravated by movement. Associated signs and symptoms: The patient has no apparent associated signs or symptoms. The patient presents with pain that is acute. The pain radiates to the left low back. Historical: - Allergies: 11:38 No Known Allergies; ap3 - Home Meds: 11:38 atorvastatin oral [Active]; donepezil oral [Active]; Furosemide Oral [Active]; Insulin: ap3 Regular Sub-Q [Active]; Isosorbide Dinitrate Oral [Active]; lisinopril Oral [Active]; Nitroglycerin Oral [Active]; Potassium Chloride Oral [Active]; Trazodone Oral [Active]; unknown pain medication [Active]; - PMHx: 11:38 Diabetes mellitus; Hypertensive disorder; Hypercholesterolemia; ap3 - Immunization history:: Client reports receiving the 2nd dose of the Covid vaccine, Flu vaccine is up to date. - Social history:: Smoking status: Patient denies any tobacco usage or history of. - Family history:: not pertinent. ROS: 12:03 Constitutional: Negative for fever, chills, and weight loss, Eyes: Negative for injury, tadeo pain, redness, and discharge, ENT: Negative for injury, pain, and discharge, Neck: Negative for injury, pain, and swelling, Cardiovascular: Negative for chest pain, palpitations, and edema, Respiratory: Negative for shortness of breath, cough, wheezing, and pleuritic chest pain, Abdomen/GI: Negative for abdominal pain, nausea, vomiting, diarrhea, and constipation, Back: Negative for injury and pain, : Negative for injury, bleeding, discharge, and swelling, Skin: Negative for injury, rash, and discoloration, Neuro: Negative for headache, weakness, numbness, tingling, and seizure, Psych: Negative for depression, anxiety, suicide ideation, homicidal ideation, and hallucinations, Allergy/Immunology: Negative for hives, rash, and allergies, Endocrine: Negative for neck swelling, polydipsia, polyuria, polyphagia, and marked weight changes, Hematologic/Lymphatic: Negative for swollen nodes, abnormal bleeding, and unusual bruising. 12:03 MS/extremity: Positive for decreased range of motion, pain, of the left leg. Exam: 12:03 Constitutional: This is a well developed, well nourished patient who is awake, alert, tadeo and in no acute distress. Head/Face: Normocephalic, atraumatic. Eyes: Pupils equal round and reactive to light, extra-ocular motions intact. Lids and lashes normal. Conjunctiva and sclera are non-icteric and not injected. Cornea within normal limits. Periorbital areas with no swelling, redness, or edema. ENT: Nares patent. No nasal discharge, no septal abnormalities noted. Tympanic membranes are normal and external auditory canals are clear. Oropharynx with no redness, swelling, or masses, exudates, or evidence of obstruction, uvula midline. Mucous membranes moist. Neck: Trachea midline, no thyromegaly or masses palpated, and no cervical lymphadenopathy. Supple, full range of motion without nuchal rigidity, or vertebral point tenderness. No Meningismus. Chest/axilla: Normal chest wall appearance and motion. Nontender with no deformity. No lesions are appreciated. Cardiovascular: Regular rate and rhythm with a normal S1 and S2. No gallops, murmurs, or rubs. Normal PMI, no JVD. No pulse deficits. Respiratory: Lungs have equal breath sounds bilaterally, clear to auscultation and percussion. No rales, rhonchi or wheezes noted. No increased work of breathing, no retractions or nasal flaring. Abdomen/GI: Soft, non-tender, with normal bowel sounds. No distension or tympany. No guarding or rebound. No evidence of tenderness throughout. Back: No spinal tenderness. No costovertebral tenderness. Full range of motion. Male : Normal genitalia with no discharge or lesions. Skin: Warm, dry with normal turgor. Normal color with no rashes, no lesions, and no evidence of cellulitis. Neuro: Awake and alert, GCS 15, oriented to person, place, time, and situation. Cranial nerves II-XII grossly intact. Motor strength 5/5 in all extremities. Sensory grossly intact. Cerebellar exam normal. Normal gait. Psych: Awake, alert, with orientation to person, place and time. Behavior, mood, and affect are within normal limits. 12:03 Musculoskeletal/extremity: ROM: limited active range of motion, limited passive range of motion, Circulation is intact in all extremities. Sensation intact. Compartment Syndrome exam of affected extremity: is normal. DVT Exam: No signs of deep vein thrombosis. no swelling, no tenderness, negative Homans' sign noted on exam, no appreciated bluish discoloration, no erythema, no increased warmth, pain. Vital Signs: 11:34 BP 120 / 76 RA (auto/reg); Pulse 102; Resp 17; Temp 98.9(O); Pulse Ox 95% on R/A; ap3 Weight 77.11 kg; Height 5 ft. 7 in. (170.18 cm); 13:09 BP 113 / 68; Pulse 104; Pulse Ox 96% on R/A; ap3 11:34 Body Mass Index 26.63 (77.11 kg, 170.18 cm) ap3 MDM: 11:40 Patient medically screened. tadeo 12:08 Differential diagnosis: contusion, tendonitis, arthritis, Cholelithiasis chronic back tadeo pain. Data reviewed: vital signs, nurses notes, lab test result(s). Data interpreted: ekg monitor tech: not applicable for this patient encounter. rate is 102 beats/min. Test interpretation: by ED physician or midlevel provider: plain radiologic studies. Counseling: I had a detailed discussion with the patient and/or guardian regarding: the historical points, exam findings, and any diagnostic results supporting the discharge/admit diagnosis, lab results, radiology results. 04/10 12:00 Order name: CBC with Diff; Complete Time: 13:21 tadeo 04/10 12:00 Order name: Comprehensive Metabolic Panel; Complete Time: 13:21 tadeo 04/10 12:12 Order name: Pelvis XRAY; Complete Time: 13:21 tadeo Administered Medications: 12:27 Drug: Zofran (Ondansetron) 4 mg Route: IVP; Site: right antecubital; ap3 13:09 Follow up: Response: No adverse reaction ap3 12:27 Drug: Valium (diazepam) 5 mg Route: PO; ap3 13:08 Follow up: Response: No adverse reaction ap3 12:27 Drug: Decadron - Dexamethasone 10 mg Route: IVP; Site: right antecubital; ap3 13:09 Follow up: Response: No adverse reaction ap3 12:28 Drug: NS 0.9% 500 ml Route: IV; Rate: bolus; Site: right antecubital; ap3 14:00 Follow up: IV Status: Completed infusion ap3 12:28 Drug: fentaNYL (PF) 50 mcg Route: IVP; Site: right antecubital; ap3 13:09 Follow up: Response: No adverse reaction ap3 13:27 Drug: fentaNYL Patch (50 mcg/hr) 1 patches Route: Transdermal; Site: affected area; ap3 Disposition Summary: 04/10/22 13:23 Discharge Ordered Location: Home tadeo Problem: new tadeo Symptoms: have improved tadeo Condition: Stable tadeo Diagnosis - Sciatica, left side tadeo - Pain in left lower leg tadeo - Other chronic pain tadeo Followup: tadeo - With: Private Physician - When: 2 - 3 days - Reason: Recheck today's complaints, Continuance of care, Re-evaluation by your physician Followup: tadeo - With: Franck Frausto DO - When: 2 - 3 days - Reason: Recheck today's complaints, Re-evaluation by your physician Discharge Instructions: - Discharge Summary Sheet tadeo - Chronic Back Pain tadeo - Musculoskeletal Pain tadeo - Sciatica tadeo - Chronic Back Pain, [id number] tadeo - Sciatica, [id number] tadeo Forms: - Medication Reconciliation Form tadeo - Thank You Letter tadeo - Antibiotic Education tadeo - Prescription Opioid Use tadeo Prescriptions: - Medrol (Nasir) 4 mg Oral Tablets, Dose Pack - take 1 tablet by ORAL route as directed - follow package instructions; 1 tadeo packet; Refills: 0, Product Selection Permitted Signatures: Dispatcher [employer] Michael Black MD MD cha Prokisch, Amanda, RN RN ap3
[2022-04-10] MEDS ORDERED: FENTANYL 25 MCG/PATCH TD ONE (13:26)
[2022-04-10] MEDS ORDERED: FENTANYL 50 MCG/PATCH TD SCH (14:00)
[2022-04-10 17:50] VITALS: TEMP 98.9
[2022-04-10 17:51] VITALS: BP 113/68; O2SAT 96
== END 2022-04-10 17:39 | disposition home or self-care (01) ==
LOC: ER 11:33
DX: M54.32 Sciatica, left side (principal); G89.29 Other chronic pain; E11.9 Type 2 diabetes mellitus without complications; Z79.4 Long term (current) use of insulin; E78.00 Pure hypercholesterolemia, unspecified; I10 Essential (primary) hypertension
CPT/HCPCS: 96361; 85025; 36415; 80053; 72170; 96375; 96374; 99284; J3010; J1100; J7030; J2405

== ENCOUNTER 2022-04-13 21:17 | Emergency (ER) | payer OTHER ==
[2022-04-13] MEDS ORDERED: dexAMETHasone 10 MG/ML VIAL ONE (21:43)
[2022-04-13] MEDS ORDERED: KETOROLAC 30 MG/ML INJ ONE (21:43)
[2022-04-13] MEDS ORDERED: MORPHINE 4 MG/ML SYR ONE ×2 (21:43→23:47)
--- NOTE | 2022-04-13 23:36 | ER ---
Nurse's Notes [facility] Name: Demetrius Sarmiento Age: 81 yrs Sex: Male : 1940 Arrival Date: 04/13/2022 Time: 21:19 Bed 19 Private MD: Diagnosis: Lumbago with sciatica, left side;Other chronic pain Presentation: 04/13 21:19 Chief complaint: EMS states: pt having back pain radiating down to both legs. 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 started taking steroids today. Coronavirus screen: Vaccine status: Patient reports receiving the 2nd dose of the covid vaccine. Ebola Screen: No symptoms or risks identified at this time. Initial Sepsis Screen: Does the patient meet any 2 criteria? HR > 90 bpm. No. Patient's initial sepsis screen is negative. Does the patient have a suspected source of infection? No. Patient's initial sepsis screen is negative. Risk Assessment: Do you want to hurt yourself or someone else? Patient reports no desire to harm self or others. Onset of symptoms was 2021. 21:19 Method Of Arrival: [facility] 21:19 Acuity: LANCE 4 5 Triage Assessment: 21:23 General: Appears uncomfortable, Behavior is cooperative. Pain: Complains of pain in sm5 back, right leg and left leg. Neuro: Level of Consciousness is awake, alert, obeys commands, Oriented to person, place, time, situation. Cardiovascular: No deficits noted. Capillary refill < 3 seconds Patient's skin is warm and dry. Respiratory: No deficits noted. Airway is patent Trachea midline Respiratory effort is even, unlabored. Musculoskeletal: Reports pain in back, right leg and left leg. Historical: - Allergies: 21:22 No Known Allergies; sm5 - PMHx: 21:22 diabetes mellitus; Hypercholesterolemia; Hypertensive disorder; sm5 - Immunization history:: Client reports receiving the 2nd dose of the Covid vaccine. - Social history:: Smoking status: Patient denies any tobacco usage or history of. Screenin:23 Abuse screen: Denies threats or abuse. Denies injuries from another. Nutritional sm5 screening: No deficits noted. Tuberculosis screening: No symptoms or risk factors identified. Fall Risk None identified. Assessment: 21:30 Reassessment: see triage assessment. 5 22:30 Reassessment: No changes from previously documented assessment. Patient and/or family 5 updated on plan of care and expected duration. Pain level reassessed. 23:57 Reassessment: No changes from previously documented assessment. Patient and/or family 5 updated on plan of care and expected duration. Pain level reassessed. Vital Signs: 21:19 BP 113 / 94; Pulse 115; Resp 17; Temp 98.7(TE); Pulse Ox 99% on R/A; Weight 77.11 kg; 5 Height 5 ft. 7 in. (170.18 cm); Pain 10/10; 22:46 BP 116 / 75; Pulse 93; Resp 20; Pulse Ox 100% on R/A; sm5 23:58 BP 136 / 94; Pulse 95; Resp 19; Pulse Ox 100% on R/A; sm5 21:19 Body Mass Index 26.63 (77.11 kg, 170.18 cm) 5 ED Course: 21:19 Patient arrived in ED. 5 21:19 Shukri Martinez NP is PHCP. pm1 21:19 Isaias Anderson MD is Attending Physician. pm1 21:20 Triage completed. 5 21:23 Arm band placed on right wrist. 5 21:23 Patient has correct armband on for positive identification. Bed in low position. Call [facility] light in reach. Side rails up X2. Client placed on continuous cardiac and pulse oximetry monitoring. NIBP monitoring applied. 21:27 Vanessa Batres, RN is Primary Nurse. 5 21:44 Inserted saline lock: 20 gauge in right antecubital area, using aseptic technique. 5 23:58 No provider procedures requiring assistance completed. IV discontinued, intact, 5 bleeding controlled, No redness/swelling at site. Pressure dressing applied. Administered Medications: 21:43 Drug: Ketorolac 15 mg Route: IVP; Site: right antecubital; 5 23:57 Follow up: Response: No adverse reaction [facility] 21:43 Drug: Decadron - Dexamethasone 10 mg Route: IVP; Site: right antecubital; 5 23:57 Follow up: Response: No adverse reaction [facility] 21:43 Drug: morphine 4 mg Route: IVP; Infused Over: 4 mins; Site: right antecubital; 5 23:57 Follow up: Response: No adverse reaction sm5 23:45 Drug: morphine 4 mg Route: IVP; Infused Over: 4 mins; Site: right antecubital; 5 23:57 Follow up: Response: No adverse reaction 5 23:46 Drug: Lidoderm Patch 5 % (700 mg/patch) 1 patches {Note: back.} Route: Topical; Site: sm5 affected area; 23:57 Follow up: Response: No adverse reaction 5 Medication: 23:58 VIS not applicable for this client. 5 Outcome: 23:35 Discharge ordered by MD. pm1 23:58 Discharged to home via wheelchair. 5 23:58 Condition: stable 23:58 Discharge instructions given to patient, Instructed on discharge instructions, follow up and referral plans. Demonstrated understanding of instructions, follow-up care. 23:59 Patient left the ED. 5 Signatures: Shukri Martinez NP [employer] REPA[employer]ER pm1 Vanessa Batres RN RN 5
--- NOTE | 2022-04-13 23:36 | EDPHYS ---
Physician Documentation [facility] Name: Demetrius Sarmiento Age: 81 yrs Sex: Male : 1940 Arrival Date: 04/13/2022 Time: 21:19 Bed 19 Private MD: ED Physician Isaias Anderson HPI: 04/13 21:26 This 81 yrs old Male presents to ER via EMS with complaints of back pain. pm1 21:26 The patient presents with pain that is chronic, with no known mechanism of injury. The pm1 symptoms are located in the low back. The pain radiates to the left leg. The problem was sustained from a chronic condition. Modifying factors: The patient symptoms are alleviated by nothing, the patient symptoms are aggravated by nothing. Associated signs and symptoms: Pertinent negatives: numbness, tingling, weakness. Severity of symptoms: in the emergency department the symptoms are actually worse. The patient has experienced similar episodes in the past, chronically. The patient has been recently seen at the [facility] Emergency Department, for similar complaints Patient given a prescription for steroids and he started taking it today. Historical: - Allergies: 21:22 No Known Allergies; sm5 - PMHx: 21:22 diabetes mellitus; Hypercholesterolemia; Hypertensive disorder; sm5 - Immunization history:: Client reports receiving the 2nd dose of the Covid vaccine. - Social history:: Smoking status: Patient denies any tobacco usage or history of. ROS: 21:26 Constitutional: Negative for fever, chills, and weight loss, Cardiovascular: Negative pm1 for chest pain, palpitations, and edema, Respiratory: Negative for shortness of breath, cough, wheezing, and pleuritic chest pain, MS/Extremity: Negative for injury and deformity. 21:26 Skin: Negative for injury, rash, and discoloration, Neuro: Negative for headache, weakness, numbness, tingling, and seizure. 21:26 Back: Positive for of the low back area, Pain. 21:26 All other systems are negative. Exam: 21:26 Constitutional: This is a well developed, well nourished patient who is awake, alert, pm1 and in no acute distress. Head/Face: Normocephalic, atraumatic. 21:26 Skin: Warm, dry with normal turgor. Normal color with no rashes, no lesions, and no evidence of cellulitis. MS/ Extremity: Pulses equal, no cyanosis. Neurovascular intact. Full, normal range of motion. 21:26 Cardiovascular: Exam negative for acute changes, Rate: normal, Rhythm: regular, Pulses: no pulse deficits are appreciated. 21:26 Respiratory: Exam negative for acute changes, respiratory distress, shortness of breath. 21:26 Back: pain, that is mild, of the left buttocks, Straight leg raises: left lower extremity illicits pain, at 30 degrees, Palpation to the left buttocks reproduces radiating pain down left leg. 21:26 Neuro: Exam negative for acute changes, Orientation: is normal, Mentation: is normal, Motor: is normal, moves all fours, Sensation: no obvious gross deficits. Vital Signs: 21:19 BP 113 / 94; Pulse 115; Resp 17; Temp 98.7(TE); Pulse Ox 99% on R/A; Weight 77.11 kg; 5 Height 5 ft. 7 in. (170.18 cm); Pain 10/10; 22:46 BP 116 / 75; Pulse 93; Resp 20; Pulse Ox 100% on R/A; sm5 23:58 BP 136 / 94; Pulse 95; Resp 19; Pulse Ox 100% on R/A; 5 21:19 Body Mass Index 26.63 (77.11 kg, 170.18 cm) [facility] MDM: 21:19 Patient medically screened. pm1 23:34 Data reviewed: vital signs. Data interpreted: Pulse oximetry: on room air is 100 %. pm1 Interpretation: normal. Counseling: I had a detailed discussion with the patient and/or guardian regarding: the historical points, exam findings, and any diagnostic results supporting the discharge/admit diagnosis, the need for outpatient follow up, a family practitioner, Patient reported that he is ready to go home. Will give the patient additional pain medications for his sciatic pain. 04/13 21:24 Order name: IV Saline Lock; Complete Time: 21:36 pm1 Administered Medications: :43 Drug: Ketorolac 15 mg Route: IVP; Site: right antecubital; [facility] 23:57 Follow up: Response: No adverse reaction [facility] 21:43 Drug: Decadron - Dexamethasone 10 mg Route: IVP; Site: right antecubital; 5 23:57 Follow up: Response: No adverse reaction sm5 21:43 Drug: morphine 4 mg Route: IVP; Infused Over: 4 mins; Site: right antecubital; sm5 23:57 Follow up: Response: No adverse reaction sm5 23:45 Drug: morphine 4 mg Route: IVP; Infused Over: 4 mins; Site: right antecubital; sm5 23:57 Follow up: Response: No adverse reaction sm5 23:46 Drug: Lidoderm Patch 5 % (700 mg/patch) 1 patches {Note: back.} Route: Topical; Site: sm5 affected area; 23:57 Follow up: Response: No adverse reaction sm5 Disposition: 04/14 03:48 Co-signature as Attending Physician, Isaias Anderson MD. rn Disposition Summary: 04/13/22 23:35 Discharge Ordered Location: Home pm1 Problem: new pm1 Symptoms: have improved pm1 Condition: Stable pm1 Diagnosis - Lumbago with sciatica, left side pm1 - Other chronic pain pm1 Followup: pm1 - With: Emergency Department - When: As needed - Reason: Worsening of condition Followup: pm1 - With: Private Physician - When: 2 - 3 days - Reason: Recheck today's complaints, Continuance of care, Re-evaluation by your physician Discharge Instructions: - Discharge Summary Sheet pm1 - Chronic Back Pain pm1 - Sciatica pm1 Forms: - Medication Reconciliation Form pm1 - Thank You Letter pm1 - Antibiotic Education pm1 - Prescription Opioid Use pm1 Signatures: Isaias Anderson MD MD rn Marinas, Patrick, [employer]PPORT [employer]IST[employer] pm1 Vanessa Batres RN RN 5
[2022-04-13] MEDS ORDERED: LIDOCAINE 4% PATCH ONE (23:47)
[2022-04-14 00:40] VITALS: TEMP 98.7
[2022-04-14 00:41] VITALS: O2SAT 100
[2022-04-14 00:43] VITALS: BP 136/94
--- OUTSIDE RECORDS SUMMARY | 2022-04-14 04:38 | XMS REPORT | Continuity of Care Document ---
:1940 Author Organization [facility] t Address [address] [place] [address] Care Team Providers Name Role Phone Andres [...] Number Effective Date Expiration Date Stacy torres [facility] [id number] 2020 00:00:00 [facility] [id number] 2019 DUAL COMPLETE HMO 00:00:00 [place]ICAID OF [place] [id number] 2018 00:00:00 Problems Condition Condition Condition Status Onset Resolution Last Treating Co mments Source Name Details Category Date Date Treatment Clinician Date Unstable Unstable Disease Active Unive rs angina angina 5-07 ity of 00:00: [place] 00 Medical Branch ALBA (acute ALBA (acute Disease Active 2020- U nivers kidney kidney 4-21 ity of injury) injury) 00:00: [place] 00 Medical Branch Chest pain Chest pain Disease Active 2019-0 U nivers 4-21 ity of 00:00: [place] Medical [facility] Chest pain Chest pain Disease Active 2019- U 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 4-15 it y of 00:00: [place] 00 Medical Branch 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 00:00: [place] and and 00 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 2018-11 U nivers lobe lobe 1-06 ity of pneumonia pneumonia 00:00: [facility] s 00 Medical Branch PNA PNA [...] 00:00: [place] involving involving 00 Medi birdie [place] 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 00:00: [place] disease disease 00 Medical Branch Coronary Coronary Disease Active Unive rs artery artery 1-27 ity of disease disease 00:00: [place] involving involving 00 Medi birdie [place] Branch 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 [...] [facility] Allergie 1-23 Clear s 00:00: [address] NO KNOWN Drug Active Univers ALLERGIE Class ity of S [facility] Social History Social Habit Start Date Stop Date Quantity Comments Source Exposure to Unable to assess Univers ity of SARS-CoV-2 (event) [facility] History of tobacco User of Univer sity of use smokeless [facility] tobacco [place] Alcohol intake 2022-03-01 2022-03-01 Current University of 00:00:00 00:00:00 non-drinker of [facility] alcohol [place] (finding) Cigarettes smoked 2018-12-11 2018-12-11 Univers ity of current (pack per 00:00:00 00:00:00 [facility] [place] [facility] ) - Reported Branch Cigarette 2018-12-11 2018-12-11 University of pack-years 00:00:00 00:00:00 [facility] Tobacco use and 2018-12-11 2018-12-11 Former user Universi ty of exposure 00:00:00 00:00:00 [facility] Sex Ass[birth year] At [birth year] Universit y of 00:00:00 00:00:00 [facility] Smoking Status Start Date Stop Date Source Former smoker 2018-12-11 00:00:00 2018-12-11 00:00:00 Universi ty of [facility] Medications Ordered Filled Start Stop Current Ordering Indication Dosage Frequency Signature Comments Components Source Medication Medication Date Date Medication? Clinician (SIG) Name Name FENTanyl PF No 25ug 25 mcg, Un mel (SUBLIMAZE 03-01 Intramuscu it y of (PF)) 16:45: 16:23 lar, ONCE, [place] injection 00 :00 1 dose, On Medi birdie 25 mcg [facility] 03/01/22 at 1145, Routine cyclobenzap No 10mg 10 mg, Uni vers rine 03-01 Oral, ity of (FLEXERIL) 14:00: 12:59 ONCE, 1 [place] tablet 10 00 :00 dose, On Medica l mg [facility] 03/01/22 at 0900, Routine HYDROcodone [...] 03/01/22 at 0900, 1 mL cyclobenzap Yes [id number] 10mg Take 1 Univers rine 10 mg 16 tablet by ity of tablet 00:00: mouth 3 [place] 00 (three) Medical times [place] daily as needed for Muscle Spasms. aspirin 81 2020-11- No [id number] 81mg Take 1 Univers mg chewable 2-12-04 tablet by it y of tablet 00:00: 05:59 mouth [place] 00 :00 daily for Medical 30 days. [place] clopidogreL 2020-11- No [id number] 75mg Take 1 Univers 75 mg 2-04 12- tablet by ity of tablet 00:00: 05:59 mouth [place] 00 :00 daily for Medical 30 days. [place] furosemide 2020-11- No [id number] 20mg Take 1 Univers 20 mg 2-04 12- tablet by ity of tablet 00:00: 05:59 mouth [place] 00 :00 daily for Medical 30 days. [place] aspirin 81 2020-11- No [id number] 81mg Take 1 Univers mg chewable 2-12-04 tablet by it y of tablet 00:00: 05:59 mouth [place] 00 :00 daily for Medical 30 days. [place] clopidogreL 2020-11- No [id number] 75mg Take 1 Univers 75 mg 2-04 12- tablet by ity of tablet 00:00: 05:59 mouth [place] 00 :00 daily for Medical 30 days. [place] furosemide 2020-11- No [id number] 20mg Take 1 Univers 20 mg 2-04 12- tablet by ity of tablet 00:00: 05:59 mouth [place] 00 :00 daily for Medical 30 days. [place] aspirin 81 2020-11- No [id number] 81mg Take 1 Univers mg chewable 2-04 12- tablet by it y of tablet 00:00: 05:59 mouth [place] 00 :00 daily for Medical 30 days. Branch clopidogreL 2020-11- No [id number] 75mg Take 1 Univers 75 mg 01-04- tablet by ity of tablet 00:00: 05:59 mouth [place] 00 :00 daily for Medical 30 days. Branch furosemide 2020-11- No [id number] 20mg Take 1 Univers 20 mg -04 [...] Until Discontinu ed, Routine QUEtiapine 2020-11 Yes [id number] 25mg Take 1 Univers 25 mg 2-18 tablet by ity of tablet 00:00: mouth at [place] 00 bedtime as Medical needed Branch (agitation /insomnia) . QUEtiapine 2020-11 Yes [id number] 25mg Take 1 Univers 25 mg 2-18 tablet by ity of tablet 00:00: mouth at [place] 00 bedtime as Medical needed Branch (agitation /insomnia) . QUEtiapine 2020-11 Yes [id number] 25mg Take 1 Univers 25 mg 2-18 tablet by ity of tablet 00:00: mouth at [place] 00 bedtime as Medical needed Branch (agitation /insomnia) . QUEtiapine 2020-11 Yes [id number] 25mg Take 1 Univers 25 mg 2-18 tablet by ity of tablet 00:00: mouth at [place] 00 bedtime as Medical needed Branch (agitation /insomnia) . isosorbide 2020-11 No [id number] 60mg Take 1 Univers mononitrate 2-18 01-18 tablet by it y of 60 mg 24 hr 00:00: 05:59 mouth 2 [place] tablet 00 :00 (two) Medical times Branch daily for 30 days. metoprolol 2020-11- No [id number] 37.5mg Take 1.5 Univers succinate 2-18 -18 tablets by ity of XL 25 mg 24 00:00: 05:59 mouth 2 [place] hr tablet 00 :00 (two) Medical times Branch daily for 30 days. isosorbide 2020-11- No [id number] 60mg Take 1 Univers mononitrate 2-18 -18 tablet by it y of 60 mg 24 hr 00:00: 05:59 mouth 2 [place] tablet 00 :00 (two) Medical times Branch daily for 30 days. metoprolol 2020-11- No [id number] 37.5mg Take 1.5 Univers succinate 2-18 -18 tablets by ity of XL 25 mg 24 00:00: 05:59 mouth 2 [place] hr tablet 00 :00 (two) Medical times Branch daily for 30 days. isosorbide 2020-11- No [id number] 60mg Take 1 Univers mononitrate 2-18 -18 tablet by it y of 60 mg 24 hr 00:00: 05:59 mouth 2 [place] tablet 00 :00 (two) Medical times Branch daily for 30 days. metoprolol 2020-11- No [id number] 37.5mg Take 1.5 Univers succinate 2-18 -18 [...] QHSPRN, [place] mg 01 Starting Medical on [facility] Branch 11/01/21 at 0322, Until Discontinu ed, Routine, agitation/ insomnia donepeziL 2020-11 Yes 5mg 5 mg, Univers (ARICEPT) 2-17 Oral, QHS, ity of tablet 5 mg 03:00: First dose [place] 00 on [facility] Medical 10/31/21 Branch at 2100, Until Discontinu ed, Routine atorvastati 2020-11 Yes 40mg 40 mg, Univ ers n (LIPITOR) 2-17 Oral, QHS, it y of tablet 40 03:00: First dose [place] mg 00 on [facility] Medical 10/31/21 Branch at 2100, Until Discontinu ed, Routine clopidogreL 2020-11 Yes 75mg 75 mg, Univ ers (PLAVIX) 2-16 Oral, ity of tablet 75 23:30: DAILY, [place] mg 00 First dose Medical on [facility] Branch 10/31/21 at 1730, Until Discontinu ed, Routine sulfur 2020-11- No [id number] 5mL 5 mL, Unive rs hexafluorid -10-31 Intravenou i ty of e microsphr 17:00: 17:00 s, ONCE, 1 [place] (LUMASON) 00 :00 dose, On Medica l injection 5 [place] Branch mL 10/31/21 at 1100, Routine
geology faculty member approving Restricted medication : MEGGAN CAMARA isosorbide 2020-11- No 120mg 120 mg, Un mel mononitrate 2-31 10- Oral, ity of (IMDUR) 24 15:00: 14:16 DAILY, [place] hr tablet 00 :38 First dose Medi birdie 120 mg on [facility] Branch 10/31/21 at 0900, Until Discontinu ed, Routine Sliding 2020-11 Yes Subcutaneo Univ ers Scale 2-16 us, AC+HS, ity of Insulin-Reg 13:30: First dose [place] ular + Fsbg 00 on [facility] Medica l Testing 10/31/21 Branch at 0730, Until Discontinu ed, Routine enoxaparin 2020-11- No 1mg/kg 80 mg Uni vers (LOVENOX) 01-0118 (rounded ity o f injection 09:00: 14:17 from 78 mg [place] 80 mg 00 :35 = 1 mg/kg Medical ?78 kg), Branch [facility], Q24H, First dose on [place] 10/31/21 at 0300, Until Discontinu ed, Routine aspirin 2020-11- No 325mg 325 mg, Unive rs tablet 325 01-01 Oral, ity of mg 08:45: 08:15 ONCE, 1 [place] 00 :00 dose, On Medical [facility] Branch 10/31/21 at 0245, Routine glucagon 2020-11 Yes 1mg 1 mg, Univers (GLUCAGEN -16 Intramuscu ity of DIAGNOSTIC 08:16: lar, PRN, [place] KIT) 15 Starting Medical injection 1 on [facility] Branch mg 10/31/21 at 0216, Until [...] at Branch 1400, ADAMA cyclobenzap 0 Yes [id number] 5mg Take 1 Univers rine 5 mg 6-10 tablet by ity o f tablet 00:00: mouth 3 [place] 00 (three) Medical times Branch daily. cyclobenzap 0 Yes [id number] 5mg Take 1 Univers rine 5 mg 6-10 tablet by ity o f tablet 00:00: mouth 3 [place] 00 (three) Medical times Branch daily. cyclobenzap Yes [id number] 5mg Take 1 Univers rine 5 mg [...] left sided low back pain cyclobenzap Yes [id number] 5mg Take 1 Univers rine 5 mg [...] left sided low back pain cyclobenzap Yes [id number] 5mg Take 1 Univers rine 5 mg 6-10 tablet by ity o f tablet 00:00: mouth 3 00 (three) Medical times Branch daily. cyclobenzap 2021- No [id number] 5mg Take 1 Univers rine 5 mg [...] [place] mg 00 First dose Medical on [facility] Branch 03/24/20 at 0900, Until Discontinu [...] [place] mg 00 First dose Medical on [facility] Branch 03/24/20 at 0900, Until Discontinu [...] Discontinu ed, Routine aspirin 81 2020-0 Yes [id number] 81mg Take 1 U nivers mg chewable 5-09 tablet by ity of tablet 00:00: mouth [place] 00 daily with Medical breakfast. [place] furosemide 2020-0 Yes [id number] 20mg Take 1 U nivers 20 mg 5-09 tablet by ity of tablet 00:00: mouth [place] 00 daily. [facility] aspirin 81 2020-0 Yes [id number] 81mg Take 1 U nivers mg chewable 5-09 tablet by ity of tablet 00:00: mouth [place] 00 daily with Medical breakfast. [place] furosemide 2020-0 Yes [id number] 20mg Take 1 U nivers 20 mg 5-09 tablet by ity of tablet 00:00: mouth [place] 00 daily. [facility] aspirin 81 2020-0 Yes [id number] 81mg Take 1 U nivers mg chewable 5-09 tablet by ity of tablet 00:00: mouth [place] 00 daily with Medical breakfast. [place] furosemide 2020-0 Yes [id number] 20mg Take 1 U nivers 20 mg 5-09 tablet by ity of tablet 00:00: mouth [place] 00 daily. [facility] aspirin 81 2020-0 Yes [id number] 81mg Take 1 U nivers mg chewable 5-09 tablet by ity of tablet 00:00: mouth [place] 00 daily with Medical breakfast. [place] furosemide 2020-0 Yes [id number] 20mg Take 1 U nivers 20 mg 5-09 tablet by ity of tablet 00:00: mouth [place] 00 daily. [facility] aspirin 81 2020-0 Yes [id number] 81mg Take 1 U nivers mg chewable 5-09 tablet by ity of tablet 00:00: mouth [place] 00 daily with Medical breakfast. [place] furosemide 2020-0 Yes [id number] 20mg Take 1 U nivers 20 mg 5-09 tablet by ity of tablet 00:00: mouth [place] 00 daily. [facility] aspirin 81 2020-0 Yes [id number] 81mg Take 1 U nivers mg chewable 5-09 tablet by ity of tablet 00:00: mouth [place] 00 daily with Medical breakfast. [place] furosemide 2020-0 Yes [id number] 20mg Take 1 U nivers 20 mg 5-09 tablet by ity of tablet 00:00: mouth [place] 00 daily. Medical Branch aspirin 81 2020-0 Yes [id number] 81mg Take 1 U nivers mg chewable 5-09 tablet by ity of tablet 00:00: mouth [place] 00 daily with Medical breakfast. Branch furosemide 2020-0 Yes [id number] 20mg Take 1 U nivers 20 mg 5-09 tablet by ity of tablet 00:00: mouth [place] 00 daily. Medical Branch aspirin 81 2020-0 Yes [id number] 81mg Take 1 U nivers mg chewable 5-09 tablet by ity of tablet 00:00: mouth [place] 00 daily with Medical breakfast. Branch furosemide 2020-0 Yes [id number] 20mg Take 1 U nivers 20 mg 5-09 tablet by ity of tablet 00:00: mouth [place] 00 daily. Medical Branch aspirin 81 2020-0 Yes [id number] 81mg Take 1 U nivers mg chewable 5-09 tablet by ity of tablet 00:00: mouth [place] 00 daily with Medical breakfast. Branch furosemide 2020-0 Yes [id number] 20mg Take 1 U nivers 20 mg 5-09 tablet by ity of tablet 00:00: mouth [place] 00 daily. Medical Branch aspirin 81 2020-0 202- No [id number] 81mg Take 1 Univers mg chewable 5-09 12-18 tablet by it y of tablet 00:00: 00:00 mouth [place] 00 :00 daily with Medical breakfast. Branch furosemide 2020-0 2021- No [id number] 20mg Take 1 Univers 20 mg 5-09 12-18 tablet by ity of tablet 00:00: 00:00 mouth [place] 00 :00 daily. Medical Branch isosorbide 2020-0 2020- No [id number] 90mg Take 3 Univers mononitrate 5-09 05-08 tablets by i ty of 30 mg 24 hr 00:00: 00:00 mouth [place] tablet 00 :00 daily. Medical Branch isosorbide 2020-0 2020- No [id number] 90mg Take 3 Univers mononitrate 5-09 05-08 tablets by i ty of 30 mg 24 hr 00:00: 00:00 mouth [place] tablet 00 :00 daily. Medical Branch maalox/lido 2020-0 2020- No 5mL 5 mL, Univ ers sydni 2 5-08 05-08 Oral, ity of %viscous 20:45: 20:56 ONCE, 1 [place] 1:1 00 :00 dose, Fri Medical suspension 03/23/20 at [facility] (COMPOUNDED 1545, ) Routine maalox/lido 2020-0 2020- No 5mL 5 mL, Univ [facility] 2 03-23 Oral, ity of %viscous 20:45: 20:56 ONCE, 1 [place] 1:1 00 :00 dose, Fri Medical suspension 03/23/20 at [facility] (COMPOUNDED 1545, ) Routine acetaminoph 2020-0 [...] :00 dose, Fri Medical (DEFINITY) 03/23/20 at [facility] injection 2 1030, mL Routine perflutren [...] IV Push, ity of mg 07:59: Q4HPRN, [place] 14 Starting Medical 03/23/20 Branch at 0259, Until Discontinu ed, Routine, Chest pain magnesium 2020-0 2020- No 2g 2 g, IV Univ ers sulfate in 03-23 Piggyback, it y of water 2 07:45: 07:49 ONCE, 1 [place] gram/50 mL 00 :00 dose, Fri Medi birdie (4 %) 03/23/20 at [place] infusion 2 0245, g Routine KCL 2020-0 2020- No 40meq 40 mEq, Univers (KLOR-CON 03-23 Oral, ity of M20) tablet 07:45: 07:27 ONCE, 1 [place] 40 mEq 00 :00 dose, Fri Medical 03/23/20 at [place] 0245, Routine magnesium 2020-0 2020- No 2g 2 g, IV Univ ers sulfate in 03-23 Piggyback, it y of water 2 07:45: 07:49 ONCE, 1 [place] gram/50 mL 00 :00 dose, Fri Medi birdie (4 %) 03/23/20 at [place] infusion 2 0245, g Routine KCL 2020-0 2020- No 40meq 40 mEq, Univers (KLOR-CON 03-23 Oral, ity of M20) tablet 07:45: 07:27 ONCE, 1 [place] 40 mEq 00 :00 dose, Fri Medical 03/23/20 at [place] 0245, Routine heparin 2020-0 Yes 12U/kg/ 12 [...] 0.4 doses, Branch mg Starting [facility] 03/22/20 at 2138, Until Discontinu ed, ADAMA, Chest pain nitroglycer 2020-0 Yes .4mg 0.4 mg, Uni vers in 03-23 Sublingual ity of (NITROSTAT) 02:38: , Q5MIN [place] sublingual 00 PRN, 3 Medical tablet 0.4 doses, Branch mg Starting [facility] 03/22/20 at 2138, Until Discontinu ed, ADAMA, Chest pain aspirin 2020-0 2020- No 324mg 324 mg, Unive rs chewable 03-23 05-08 Oral, ity of tablet 324 02:37: 02:51 ONCE, 1 [place] mg 00 :00 dose, [facility] 03/22/20 at Branch 2145, ADAMA aspirin 2020-0 2020- No 324mg 324 mg, Unive rs chewable 03-23-08 Oral, ity of tablet 324 02:37: 02:51 ONCE, 1 [place] mg 00 :00 dose, [facility] 03/22/20 at Branch 2145, ADAMA isosorbide 2020-0 Yes [id number] 90mg Take 1.5 Univers mononitrate 5-08 tablets by it y of 60 mg 24 hr 00:00: mouth [place] tablet 00 daily. [facility] isosorbide 2020-0 Yes [id number] 90mg Take 1.5 Univers mononitrate 5-08 tablets by it y of 60 mg 24 hr 00:00: mouth [place] tablet 00 daily. [facility] isosorbide 2020-0 Yes [id number] 90mg Take 1.5 Univers mononitrate 5-08 tablets by it y of 60 mg 24 hr 00:00: mouth [place] tablet 00 daily. [facility] isosorbide 2020-0 Yes [id number] 90mg Take 1.5 Univers mononitrate 5-08 tablets by it y of 60 mg 24 hr 00:00: mouth [place] tablet 00 daily. [facility] isosorbide 2020-0 Yes [id number] 90mg Take 1.5 Univers mononitrate 5-08 tablets by it y of 60 mg 24 hr 00:00: mouth [place] tablet 00 daily. Medical Branch isosorbide 2020-0 Yes [id number] 90mg Take 1.5 Univers mononitrate 5-08 tablets by it y of 60 mg 24 hr 00:00: mouth [place] tablet 00 daily. Medical Branch isosorbide 2020-0 Yes [id number] 90mg Take 1.5 Univers mononitrate 5-08 tablets by it y of 60 mg 24 hr 00:00: mouth [place] tablet 00 daily. Medical Branch isosorbide 2020-0 Yes [id number] 90mg Take 1.5 Univers mononitrate 5-08 tablets by it y of 60 mg 24 hr 00:00: mouth [place] tablet 00 daily. Medical Branch isosorbide 2020-0 Yes [id number] 90mg Take 1.5 Univers mononitrate 5-08 tablets by it y of 60 mg 24 hr 00:00: mouth [place] tablet 00 daily. Medical Branch isosorbide 2020-0 2021- No [id number] 90mg Take 1.5 Univers mononitrate 5-08 12-18 tablets by i ty of 60 mg 24 hr 00:00: 00:00 mouth [place] tablet 00 :00 daily. Medical Branch acetaminoph 2020-0 2020- No [id number] 975mg Take 3 Univers en 325 mg 5-08 05-19 tablets by ity of tablet 00:00: 04:59 mouth [place] 00 :00 every 8 Medical (eight) Branch hours for 10 days. acetaminoph 2020-0 2020- No [id number] 975mg Take 3 Univers en 325 mg 5-08 05-19 tablets by ity of tablet 00:00: 04:59 mouth [place] 00 :00 every 8 Medical (eight) Branch hours for 10 days. acetaminoph 2020-0 2020- No [id number] 975mg Take 3 Univers en 325 mg 5-08 05-19 tablets by ity of tablet 00:00: 04:59 mouth [place] 00 :00 every 8 Medical (eight) Branch hours for 10 days. acetaminoph 2020-0 2020- No [id number] 975mg Take 3 Univers en 325 mg 5-08 05-19 tablets by ity of tablet 00:00: 04:59 mouth [place] 00 :00 every 8 Medical (eight) Branch hours for 10 days. acetaminoph 2020-0 2020- No [id number] 975mg Take 3 Univers en 325 mg 5-08 05-19 tablets by ity of tablet 00:00: 04:59 mouth [place] 00 :00 every 8 Medical (eight) Branch hours for 10 days. lidocaine 5 2019-2019- No [id number] 1{patch Apply 1 Univers % (700 508 05-09 } Patch to ity of mg/patch) 00:00: 04:59 area(s) [place] patch 00 :00 once now Medical for 1 Branch dose. lidocaine 5 2019- No [id number] 1{patch Apply 1 Univers % (700 5 05-09 } Patch to ity of mg/patch) 00:00: 04:59 area(s) [place] patch 00 :00 once now Medical for 1 Branch dose. lidocaine 5 2019- No [id number] 1{patch Apply 1 Univers % (700 5 05-08 } Patch to ity of mg/patch) 00:00: 00:00 area(s) [place] patch 00 :00 once now Medical for 1 Branch dose. lidocaine 5 2019- No [id number] 1{patch Apply 1 Univers % (700 03-23 05-08 } Patch to ity of mg/patch) 00:00: 00:00 area(s) [place] patch 00 :00 once now Medical for 1 Branch dose. glipiZIDE 2020-0 Yes 5mg 5 mg, Univers (GLUCOTROL) 4-23 Oral, ity of tablet 5 mg 14:00: DAILY, [place] 00 First dose Medical on [facility] 03/08/20 at 0900, Until Discontinu ed, Routine spironolact 2019- 2020- No [id number] 12.5mg Take 0.5 Univers one 25 mg 4-23 05-24 tablets by ity of tablet 00:00: 04:59 mouth [place] 00 :00 daily for Medical 30 days. Branch spironolact 2020-0 2020- No [id number] 12.5mg Take 0.5 Univers one 25 mg 4-23 05-24 tablets by ity of tablet 00:00: 04:59 mouth [place] 00 :00 daily for Medical 30 days. Branch spironolact 2020- 2020- No [id number] 12.5mg Take 0.5 Univers one 25 mg 4-23 05-24 tablets by ity of tablet 00:00: 04:59 mouth [place] 00 :00 daily for Medical 30 days. Branch spironolact 2020-0 2020- No [id number] 12.5mg Take 0.5 Univers one 25 mg 4-23 05-07 tablets by ity of tablet 00:00: 00:00 mouth [place] 00 :00 daily for Medical 30 days. Branch spironolact 2020-0 2020- No [id number] 12.5mg Take 0.5 Univers one 25 mg [...] N ORAL - mouth. ity of 23:46: [place] 10 Medical Branch thiamine 2020-0 Yes 100mg [...] daily. [place] 29 :00 Medical Branch atorvastati 2020-0 2020- [...] Discontinu ed, Routine, Insomnia Insulin 2020-0 Yes [id number] 10U inject 10 Univers Glargine 4-22 Units ity of 100 unit/mL 00:00: under the [place] (3 mL) 00 skin at Medical injection bedtime. Branch temazepam 2019-0 Yes [id number] 15mg Take 1 Un mel 15 mg 4-22 capsule by ity of capsule 00:00: mouth at [place] 00 bedtime as Medical needed for Branch Insomnia. furosemide 2020-0 Yes [id number] 40mg Take 1 Univers 40 mg 4-22 tablet by ity of tablet 00:00: mouth [place] 00 every Medical morning Branch and evening. Magnesium 2020-0 Yes [id number] 400mg Take 400 Univers Oxide 420 4-22 mg by ity of mg Tab 00:00: mouth [place] 00 daily. Medical Branch potassium 2020-0 Yes [id number] 20meq Take 20 Univers chloride 20 4-22 mEq by ity of mEq packet 00:00: mouth [place] 00 daily. Medical Take with Branch lasix in the morning isosorbide 2020-0 Yes [id number] 15mg Take 0.5 Univers mononitrate 4-22 tablets by it y of 30 mg 24 hr 00:00: mouth [place] tablet 00 daily. Medical Hold if Branch systolic blood pressure less than 120 Insulin 2020-0 Yes [id number] 10U inject 10 Univers Glargine 4-22 Units ity of 100 unit/mL 00:00: under the [place] (3 mL) 00 skin at Medical injection bedtime. Branch temazepam 2020-0 Yes [id number] 15mg Take 1 Un mel 15 mg 4-22 capsule by ity of capsule 00:00: mouth at [place] 00 bedtime as Medical needed for Branch Insomnia. furosemide 2020-0 Yes [id number] 40mg Take 1 Univers 40 mg 4-22 tablet by ity of tablet 00:00: mouth [place] 00 every Medical morning Branch and evening. Magnesium 2020-0 Yes [id number] 400mg Take 400 Univers Oxide 420 4-22 mg by ity of mg Tab 00:00: mouth [place] 00 daily. Medical Branch potassium 2020-0 Yes [id number] 20meq Take 20 Univers chloride 20 4-22 mEq by ity of mEq packet 00:00: mouth [place] 00 daily. Medical Take with Branch lasix in the morning isosorbide 2020-0 Yes [id number] 15mg Take 0.5 Univers mononitrate 4-22 tablets by it y of 30 mg 24 hr 00:00: mouth [place] tablet 00 daily. Medical Hold if Branch systolic blood pressure less than 120 Insulin 2020-0 Yes [id number] 10U inject 10 Univers Glargine 4-22 Units ity of 100 unit/mL 00:00: under the [place] (3 mL) 00 skin at Medical injection bedtime. Branch temazepam 2020-0 Yes [id number] 15mg Take 1 Un mel 15 mg 4-22 capsule by ity of capsule 00:00: mouth at [place] 00 bedtime as Medical needed for Branch Insomnia. furosemide 2020-0 Yes [id number] 40mg Take 1 Univers 40 mg 4-22 tablet by ity of tablet 00:00: mouth [place] 00 every Medical morning Branch and evening. Magnesium 2020-0 Yes [id number] 400mg Take 400 Univers Oxide 420 4-22 mg by ity of mg Tab 00:00: mouth [place] 00 daily. Medical Branch potassium 2020-0 Yes [id number] 20meq Take 20 Univers chloride 20 4-22 mEq by ity of mEq packet 00:00: mouth [place] 00 daily. Medical Take with Branch lasix in the morning isosorbide 2020-0 Yes [id number] 15mg Take 0.5 Univers mononitrate 4-22 tablets by it y of 30 mg 24 hr 00:00: mouth [place] tablet 00 daily. Medical Hold if Branch systolic blood pressure less than 120 Insulin 2020-0 Yes [id number] 10U inject 10 Univers Glargine 4-22 Units ity of 100 unit/mL 00:00: under the [place] (3 mL) 00 skin at Medical injection bedtime. Branch Magnesium 2020-0 Yes [id number] 400mg Take 400 Univers Oxide 420 4-22 mg by ity of mg Tab 00:00: mouth [place] 00 daily. Medical Branch vitamin 2019-0 2020- No [id number] 1000ug Take 1 Univers B-12 1,000 4-22 07-22 tablet by ity of mcg tablet 00:00: 04:59 mouth [place] 00 :00 daily for Medical 90 days. Branch vitamin 2019-0 2020- No [id number] 1000ug Take 1 Univers B-12 1,000 4-22 07-22 tablet by ity of mcg tablet 00:00: 04:59 mouth [place] 00 :00 daily for Medical 90 days. Branch vitamin 2019-0 2020- No [id number] 1000ug Take 1 [facility] B-12 1,000 4-22 07-22 tablet by ity of mcg tablet 00:00: 04:59 mouth [place] 00 :00 daily for Medical 90 days. Branch vitamin 2019-0 2020- No [id number] 1000ug Take 1 [facility] B-12 1,000 4-22 07-22 tablet by ity of mcg tablet 00:00: 04:59 mouth [place] 00 :00 daily for Medical 90 days. Branch glipiZIDE 5 2019- 2020- No [id number] 2.5mg Take 0.5 [facility] mg tablet 03-07-23 tablets by ity of 00:00: 04:59 mouth 2 [place] 00 :00 (two) Medical times Branch daily before breakfast and dinner for 30 days. metoprolol 2019-0 2020- No [id number] 25mg Take 1 [facility] succinate 03-07-23 tablet by ity of XL 25 mg 24 00:00: 04:59 mouth 2 [place] hr tablet 00 :00 (two) Medical times Branch daily for 30 days. OLANZapine 2019-0 2020- No [id number] 2.5mg Take 1 [facility] 2.5 mg -06 04-23 tablet by ity of tablet 00:00: 04:59 mouth at [place] 00 :00 bedtime Medical for 30 Branch days. ranolazine 2019-0 2020- No [id number] 1000mg Take 2 [facility] 500 mg 12 - 05-23 tablets by ity of hr tablet 00:00: 04:59 mouth [place] 00 :00 every 12 Medical (twelve) Branch hours for 30 days. aspirin 81 2019-0 2020- No [id number] 81mg Take 1 [facility] mg chewable 4-22 05-23 tablet by it y of tablet 00:00: 04:59 mouth [place] 00 :00 daily with Medical breakfast Branch for 30 days. atorvastati 2019- 2020- No [id number] 40mg Take 1 Univers n 40 mg 4-22 05-23 tablet by ity of tablet 00:00: 04:59 mouth at [place] 00 :00 bedtime Medical for 30 Branch days. glipiZIDE 5 2020- No [id number] 2.5mg Take 0.5 [facility] mg tablet 4- 05-23 tablets by ity of 00:00: 04:59 mouth 2 [place] 00 :00 (two) Medical times Branch daily before breakfast and dinner for 30 days. metoprolol 2019- 2020- No [id number] 25mg Take 1 [facility] succinate 4-22 05-23 tablet by ity of XL 25 mg 24 00:00: 04:59 mouth 2 [place] hr tablet 00 :00 (two) Medical times Branch daily for 30 days. OLANZapine 2019- 2020- No [id number] 2.5mg Take 1 [facility] 2.5 mg 4-22 05-23 tablet by ity of tablet 00:00: 04:59 mouth at [place] 00 :00 bedtime Medical for 30 Branch days. ranolazine 2019-0 2020- No [id number] 1000mg Take 2 [facility] 500 mg 12 4-22 05-23 tablets by ity of hr tablet 00:00: 04:59 mouth [place] 00 :00 every 12 Medical (twelve) Branch hours for 30 days. aspirin 81 2019-0 2020- No [id number] 81mg Take 1 [facility] mg chewable 4-22 05-23 tablet by it y of tablet 00:00: 04:59 mouth [place] 00 :00 daily with Medical breakfast Branch for 30 days. atorvastati 2019-0 2020- No [id number] 40mg Take 1 [facility] n 40 mg 4-22 05-23 tablet by ity of tablet 00:00: 04:59 mouth at [place] 00 :00 bedtime Medical for 30 Branch days. glipiZIDE 5 2019- 2020- No [id number] 2.5mg Take 0.5 [facility] mg tablet 4-22 05-23 tablets by ity of 00:00: 04:59 mouth 2 [place] 00 :00 (two) Medical times Branch daily before breakfast and dinner for 30 days. metoprolol 2020-0 2020- No [id number] 25mg Take 1 [facility] succinate 4-22 05-23 tablet by ity of XL 25 mg 24 00:00: 04:59 mouth 2 [place] hr tablet 00 :00 (two) Medical times Branch daily for 30 days. OLANZapine 2019- 2020- No [id number] 2.5mg Take 1 [facility] 2.5 mg 4-22 05-23 tablet by ity of tablet 00:00: 04:59 mouth at [place] 00 :00 bedtime Medical for 30 Branch days. ranolazine 2019- 2020- No [id number] 1000mg Take 2 [facility] 500 mg 12 4-22 05-23 tablets by ity of hr tablet 00:00: 04:59 mouth [place] 00 :00 every 12 Medical (twelve) Branch hours for 30 days. aspirin 81 2019- 2020- No [id number] 81mg Take 1 [facility] mg chewable 4-22 05-23 tablet by it y of tablet 00:00: 04:59 mouth [place] 00 :00 daily with Medical breakfast Branch for 30 days. atorvastati 2019-0 2020- No [id number] 40mg Take 1 [facility] n 40 mg 4-22 05-23 tablet by ity of tablet 00:00: 04:59 mouth at [place] 00 :00 bedtime Medical for 30 Branch days. glipiZIDE 5 2019- 2020- No [id number] 2.5mg Take 0.5 [facility] mg tablet - 05-23 tablets by ity of 00:00: 04:59 mouth 2 [place] 00 :00 (two) Medical times Branch daily before breakfast and dinner for 30 days. metoprolol 2019- 2020- No [id number] 25mg Take 1 [facility] succinate 4-22 05-23 tablet by ity of XL 25 mg 24 00:00: 04:59 mouth 2 [place] hr tablet 00 :00 (two) Medical times Branch daily for 30 days. ranolazine 2020-0 2020- No [id number] 1000mg Take 2 [facility] 500 mg 12 4-22 05-23 tablets by ity of hr tablet 00:00: 04:59 mouth [place] 00 :00 every 12 Medical (twelve) Branch hours for 30 days. atorvastati 2020-0 2020- No [id number] 40mg Take 1 [facility] n 40 mg 4-22 05-23 tablet by ity of tablet 00:00: 04:59 mouth at [place] 00 :00 bedtime Medical for 30 Branch days. furosemide 2019- 2020- No [id number] 40mg Take 1 [facility] 40 mg - 05-08 tablet by ity of tablet 00:00: 00:00 mouth [place] 00 :00 every Medical morning Branch and evening. aspirin 81 2020- No [id number] 81mg Take 1 [facility] mg chewable - 05-08 tablet by it y of tablet 00:00: 00:00 mouth [place] 00 :00 daily with Medical breakfast Branch for 30 days. isosorbide 2020- No [id number] 15mg Take 0.5 [facility] mononitrate -06 04-08 tablets by i ty of 30 mg 24 hr 00:00: 00:00 [place] tablet 00 :00 daily. Medical Hold if Branch systolic blood pressure less than 120 Insulin 2019- 2020- No [id number] 10U inject 10 Univers Glargine 03-07-08 Units ity of 100 unit/mL 00:00: 00:00 under the [place] (3 mL) 00 :00 skin at Medical injection bedtime. Branch glipiZIDE 5 2020- No [id number] 2.5mg Take 0.5 [facility] mg tablet 03-07-08 tablets by ity of 00:00: 00:00 mouth 2 [place] 00 :00 (two) Medical times Branch daily before breakfast and dinner for 30 days. metoprolol 2019- 2020- No [id number] 25mg Take 1 [facility] succinate - 05-08 tablet by ity of XL 25 mg 24 00:00: 00:00 mouth 2 [place] hr tablet 00 :00 (two) Medical times Branch daily for 30 days. ranolazine 2020- No [id number] 1000mg Take 2 [facility] 500 mg 12 - 05-08 tablets by ity of hr tablet 00:00: 00:00 mouth [place] 00 :00 every 12 Medical (twelve) Branch hours for 30 days. furosemide 2019- 2020- No [id number] 40mg Take 1 [facility] 40 mg - 05-08 tablet by ity of tablet 00:00: 00:00 mouth [place] 00 :00 every Medical morning Branch and evening. aspirin 81 2020- No [id number] 81mg Take 1 [facility] mg chewable - 05-08 tablet by it y of tablet 00:00: 00:00 mouth [place] 00 :00 daily with Medical breakfast Branch for 30 days. atorvastati 2019- No [id number] 40mg Take 1 [facility] n 40 mg - 05-08 tablet by ity of tablet 00:00: 00:00 mouth at [place] 00 :00 bedtime Medical for 30 Branch days. Magnesium 2019- No [id number] 400mg Take 400 [facility] Oxide 420 - 05-08 mg by ity of mg Tab 00:00: 00:00 mouth [place] 00 :00 daily. Medical Branch vitamin 2019-2019- No [id number] 1000ug Take 1 [facility] B-12 1,000 - 05-08 tablet by ity of mcg tablet 00:00: 00:00 mouth [place] 00 :00 daily for Medical 90 days. Branch isosorbide 2019- No [id number] 15mg Take 0.5 [facility] mononitrate 03-07-08 tablets by i ty of 30 mg 24 hr 00:00: 00:00 [place] 00 :00 daily. Medical Hold if Branch systolic blood pressure less than 120 OLANZapine 2019- No [id number] 2.5mg Take 1 [facility] 2.5 mg 03-07 05-07 tablet by ity of tablet 00:00: 00:00 mouth at [place] 00 :00 bedtime Medical for 30 Branch days. temazepam 2019- No [id number] 15mg Take 1 U nivers 15 mg - 05-07 capsule by ity of capsule 00:00: 00:00 mouth at [place] 00 :00 bedtime as Medical needed for Branch Insomnia. potassium 2019- No [id number] 20meq Take 20 Univers chloride 20 - 05-07 mEq by ity o f mEq packet 00:00: 00:00 mouth [place] 00 :00 daily. Medical Take with Branch lasix in the morning OLANZapine 2019- No [id number] 2.5mg Take 1 [facility] 2.5 mg 4- 05-07 tablet by ity of tablet 00:00: 00:00 mouth at [place] 00 :00 bedtime Medical for 30 Branch days. temazepam 2019- No [id number] 15mg Take 1 U nivers 15 mg 4-22 05-07 capsule by ity of capsule 00:00: 00:00 mouth at [place] 00 :00 bedtime as Medical needed for [place] Insomnia. potassium 2020-0 2020- No [id number] 20meq Take 20 Univers chloride 20 03-07-07 mEq by ity o f mEq packet 00:00: 00:00 mouth [place] 00 :00 daily. Medical Take with [place] lasix in the morning isosorbide 2020-0 2020- No 60mg 60 mg, Univ ers mononitrate 03-06- Oral, ity of (IMDUR) 24 14:00: 13:43 DAILY, [place] hr tablet 00 :56 First dose Medi birdie 60 mg on [facility] 03/06/20 at 0900, Until Discontinu ed, Routine OLANZapine 2020-0 Yes 2.5mg 2.5 mg, Uni vers (ZyPREXA) - Oral, QHS, ity of tablet 2.5 02:00: First dose [place] mg 00 on [facility] 03/05/20 at Branch 2100, Until Discontinu ed, Routine insulin 2020-0 Yes 10U 10 Units, [facility] glargine 03-06 Subcutaneo ity o f (LANTUS 02:00: us, QHS, [place] U-100) 00 First dose Medical injection on [facility] 10 Units 03/05/20 at 2100, Until Discontinu ed, Routine donepezil 2020-0 Yes 5mg 5 mg, Univers (ARICEPT) - Oral, QHS, ity of tablet 5 mg 02:00: First dose [place] 00 on [facility] 03/05/20 at Branch 2100, Until Discontinu ed, Routine atorvastati 2020-0 Yes 40mg 40 mg, Univ ers n (LIPITOR) - Oral, QHS, it y of tablet 40 02:00: First dose [place] mg 00 on [facility] 03/05/20 at Branch 2100, Until Discontinu ed, Routine isosorbide 2020-0 2020- No 30mg 30 mg, Univ ers mononitrate 03-05 Oral, ity of (IMDUR) 24 15:30: 15:21 ONCE, 1 [place] hr tablet 00 :00 dose, [facility] Medic al 30 mg 03/05/20 at Branch 1030, Routine spironolact 2020-0 Yes 12.5mg 12.5 mg, Univers one 4-20 Oral, ity of (ALDACTONE) 14:00: DAILY, [place] tablet 12.5 00 First dose Me dical mg on [facility] 03/05/20 at 0900, Until Discontinu ed, Routine memantine 2020-0 Yes 10mg 10 mg, Univer s (NAMENDA) 4-20 Oral, ity of tablet 10 14:00: DAILY, [place] mg 00 First dose Medical on [facility] 03/05/20 at 0900, Until Discontinu ed, Routine
geology faculty member approving Restricted medication : MEGADC lisinopril 2020-0 2020- No 5mg 5 mg, Unive rs (PRINIVIL,Z -05 03-21 Oral, ity of ESTRIL) 14:00: 13:44 DAILY, [place] tablet 5 mg 00 :01 First dose Me dical on [facility] 03/05/20 at 0900, Until Discontinu ed, Routine isosorbide 2020-0 2020- No 30mg 30 mg, Univ ers mononitrate -05 03-20 Oral, ity of (IMDUR) 24 14:00: 14:20 DAILY, [place] hr tablet 00 :04 First dose Medi birdie 30 mg on [facility] 03/05/20 at 0900, Until Discontinu ed, Routine ranolazine 2020-0 Yes 500mg 500 mg, Uni vers (RANEXA) 12 4-20 Oral, ity of hr tablet 13:00: Q12H, [place] 500 mg 00 First dose Medical on [facility] 03/05/20 at 0800, Until Discontinu [...] injection 42 Starting Medica l [address] [facility] 03/04/20 at 2202, Until Discontinu ed, ADAMA, Blood Glucose < or = 70 mg/dL and patient is unable to swallow or has mental status changes. furosemide 2020-0 Yes 40mg 40 mg, Unive rs (LASIX) 4-20 Oral, ity of tablet 40 03:00: QAM+PM, [place] mg 00 First dose Medical on [place] [facility] 03/04/20 at 2200, Until Discontinu ed, Routine cyanocobala 2020-0 Yes 1000ug 1,000 mcg, Univers min 4-20 Subcutaneo ity of (VITAMIN 03:00: [place], Q24H, [place] B12) 00 First dose Medical injection on [facility] 1,000 mcg 03/04/20 at 2200, Until Discontinu ed, Routine heparin 2020-0 Yes 5000U 5,000 Univers (porcine) 4-20 Units, ity of injection 03:00: Subcutaneo [place] 5,000 Units 00 us, Q8H, Medi birdie First dose Branch on [place] 03/04/20 at 2200, Until Discontinu ed, Routine ondansetron 2019-0 Yes 4mg 4 mg, Slow Univers (ZOFRAN 4-20 IV Push, ity of (PF)) 02:34: Q6HPRN, [place] injection 4 40 Starting Medi [address] mg [facility] 03/04/20 at 2134, Until Discontinu ed, Routine, Nausea and Vomiting (N/V) traMADol 2019-0 2020- No 50mg 50 mg, Univer s (ULTRAM) 4-20 04-22 Oral, ity of tablet 50 02:34: 02:33 Q8HPRN, [place] mg 23 :[address] [facility] 03/04/20 at 2134, Until 03/06/20 at 2133, Routine, Pain (scale 4-6) acetaminoph 2019-0 Yes 650mg 650 mg, Un mel en 4-20 Oral, ity of (TYLENOL) 02:34: Q6HPRN, [place] tablet 650 [address] Starting [address] [facility] 03/04/20 at 2134, Until Discontinu ed, Routine, Pain (scale 1-3) lisinopril 2020-0 Yes [id number] 5mg Take 1 Univers 5 mg tablet 4-18 tablet by ity of 00:00: mouth [place] 00 daily. [facility] Branch isosorbide 2020-0 Yes [id number] 30mg Take 1 Univers mononitrate 4-18 tablet by ity of 30 mg 24 hr 00:00: mouth [place] tablet 00 daily. [facility] Branch lisinopril 2020-0 Yes [id number] 5mg Take 1 Univers 5 mg tablet 4-18 tablet by ity of 00:00: mouth [place] 00 daily. [facility] Branch isosorbide 2020-0 Yes [id number] 30mg Take 1 Univers mononitrate 4-18 tablet by ity of 30 mg 24 hr 00:00: mouth [place] tablet 00 daily. [facility] Branch lisinopril 2020-0 2020- No [id number] 5mg Take 1 Univers 5 mg tablet 4-18 04-22 tablet by it y of 00:00: 00:00 mouth [place] 00 :00 daily. [facility] Branch isosorbide 2020-0 2020- No [id number] 30mg Take 1 [facility] mononitrate 4-18 04-22 [...] 4-17 mouth. ity of 17:34: [place] [address] Medical Branch thiamine 2020-0 Yes 100mg Take 100 Univ ers (VITAMIN 4-17 mg by ity of B-1) 100 mg 17:34: mouth [place] tablet 27 daily. Medical Branch aspirin 81 2019-0 Yes 81mg Take 81 mg U nivers mg chewable 4-17 by mouth ity of tablet 17:34: daily. [place] [address] Medical Branch atorvastati 2019-0 Yes 40mg Take [...] 4-17 mouth. ity of 17:34: [place] [address] Medical Branch thiamine 2020-0 Yes 100mg Take 100 Univ ers (VITAMIN 4-17 mg by ity of B-1) 100 mg 17:34: mouth [place] tablet 27 daily. Medical Branch aspirin 81 2020-0 Yes 81mg Take 81 mg U nivers mg chewable 4-17 by mouth ity of tablet 17:34: daily. [place] [address] Medical Branch atorvastati 2020-0 Yes 40mg Take 40 mg Univers n 40 mg 4-17 by mouth ity of tablet 17:34: at [place] [address] bedtime. Medical Branch NaCl 0.9% 2020-0 Yes [...] Until Discontinu ed, Routine furosemide 2020-0 Yes [id number] 40mg Take 1 [facility] 40 mg 4-17 tablet by ity of tablet 00:00: mouth [place] 00 every Medical morning Branch and evening. potassium 2020-0 Yes [id number] 20meq Take 20 Univers chloride 20 4-17 mEq by ity of mEq packet 00:00: mouth [place] 00 daily. Medical Branch vitamin 2020-0 Yes [id number] 1000ug Take 1 U nivers B-12 1,000 4-17 tablet by ity of mcg tablet 00:00: mouth [place] 00 daily. Medical Branch furosemide 2020-0 Yes [id number] 40mg Take 1 [facility] 40 mg 4-17 tablet by ity of tablet 00:00: mouth [place] 00 every Medical morning Branch and evening. potassium 2020-0 Yes [id number] 20meq Take 20 Univers chloride 20 4-17 mEq by ity of mEq packet 00:00: mouth [place] 00 daily. Medical Branch vitamin 2020-0 Yes [id number] 1000ug Take 1 U nivers B-12 1,000 4-17 tablet by ity of mcg tablet 00:00: mouth [place] 00 daily. Medical Branch furosemide 2020-0 2020- No [id number] 40mg Take 1 [facility] 40 mg 4-17 04-22 tablet by ity of tablet 00:00: 00:00 mouth [place] 00 :00 every Medical morning Branch and evening. potassium 2020-0 2020- No [id number] 20meq Take 20 Univers chloride 20 4-17 04-22 mEq by ity o f mEq packet 00:00: 00:00 mouth [place] 00 :00 daily. Medical Branch vitamin 2020-0 2020- No [id number] 1000ug Take 1 [facility] B-12 1,000 4-17 04-22 tablet by ity of mcg tablet 00:00: 00:00 mouth [place] 00 :00 daily. Medical Branch cyanocobala 2020-0 Yes 1000ug 1,000 mcg, Univers min 4-16 Subcutaneo ity of (VITAMIN 20:45: us, Q24H, [place] B12) 00 First dose Medical injection on [facility] 1,000 mcg 03/01/20 at 1545, Until Discontinu ed, Routine isosorbide 2020-0 Yes 30mg 30 mg, Unive rs mononitrate 4-16 Oral, ity of (IMDUR) 24 14:00: DAILY, [place] hr tablet 00 First dose Medi birdie 30 mg on [facility] 03/01/20 at 0900, Until Discontinu ed, Routine memantine 2020-0 Yes 10mg 10 mg, Univer s (NAMENDA) 4-16 Oral, ity of tablet 10 14:00: DAILY, [place] mg 00 First dose Medical on [facility] 03/01/20 at 0900, Until Discontinu ed, Routine
geology faculty member approving Restricted medication : MEGADC lisinopril 2020-0 Yes 5mg 5 mg, Univer s (PRINIVIL,Z 03-01 Oral, ity of ESTRIL) 14:00: DAILY, [place] tablet 5 mg 00 First dose Me dical on [facility] 03/01/20 at 0900, Until Discontinu ed, Routine enoxaparin 2020-0 Yes 30mg 30 mg, Unive rs (LOVENOX) 03-01 Subcutaneo ity of injection 14:00: [place], DAILY, [place] 30 mg 00 First dose Medical on [facility] 03/01/20 at 0900, Until Discontinu ed, Routine KCL 2020-0 2020- No 20meq 20 mEq, Univers (KLOR-CON 03-01 Oral, ity of M20) tablet 14:00: 13:26 DAILY, [place] 20 mEq 00 :35 First dose Medical on [facility] 03/01/20 at 0900, Until Discontinu ed, [...] [place] gram/50 mL 00 :00 dose, Thu [facility] birdie (4 %) 2 g 02/29/20 at [facility] piggyback 223 metoprolol 2020-0 2020- No 5mg 5 mg, Slow Univers (LOPRESSOR) 03-01 IV Push, ity of injection 5 03:30: 03:37 ONCE, 1 [place] mg 00 :00 dose, [facility] 02/29/20 at Branch 2230, ADAMA glipiZIDE 2020-0 Yes 5mg 5 mg, Univers (GLUCOTROL) 03-01 Oral, ity of tablet 5 mg 02:45: BIDAC, [place] 00 First dose Medical on [facility] 02/29/20 at 2145, Until Discontinu [...] [place] 40 mEq 00 :00 dose, [facility] Medical 02/29/20 at Branch 2000, Routine acetaminoph 2019-0 Yes 650mg 650 mg, Un mel en 15 Oral, ity of (TYLENOL) 23:57: Q6HPRN, [place] tablet 650 25 Starting Medic al mg [facility] 02/29/20 at 1857, Until Discontinu [...] 02-14 by mouth ity of 00:00: daily. [address] donepezil 5 2019-0 2020- No 5mg Take 5 mg Univers mg tablet 02-1408 by mouth ity o f 00:00: 00:00 daily. [place] 00 :00 [facility] nitroglycer 2019-0 2020- No DISSOLVE U [...] by mouth ity of tablet 23:00: daily. [place] [address] Medical Branch atorvastati 2020-0 Yes 40mg Take 40 mg Univers n 40 mg 3-03 by mouth ity of tablet 23:00: at [place] [address] bedtime. Medical Branch NaCl 0.9% 2020-0 Yes [...] of Vitamin D3, 23:00: [place] 2,000 unit 52 Medical capsule Branch metoprolol 2020-0 Yes 12.5mg Take 12.5 Univers tartrate 3-03 mg by ity of 12.5 mg 23:00: mouth 2 [place] 52 (two) Medical times Branch daily. MULTIVITAMI 2020-0 Yes Take by Un mel N ORAL 3-03 mouth. ity of 23:00: [place] [address] Medical Branch thiamine 2020-0 Yes 100mg Take 100 Univ ers (VITAMIN 3-03 mg by ity of B-1) 100 mg 23:00: mouth [place] tablet 52 daily. Medical Branch aspirin 81 2020-0 Yes 81mg Take 81 mg U nivers mg chewable 3-03 by mouth ity of tablet 23:00: daily. [place] [address] Medical Branch atorvastati 2020-0 Yes 40mg Take 40 mg Univers n 40 mg 3-03 by mouth ity of tablet 23:00: at [place] [address] bedtime. Medical Branch NaCl 0.9% 2020-0 Yes [...] ity of Vitamin D3, 23:00: [place] 2,000 [place] [address] Medical capsule Branch metoprolol 2020-0 Yes 12.5mg Take 12.5 Univers tartrate 3-03 mg by ity of 12.5 mg 23:00: mouth 2 [place] 52 (two) Medical times Branch daily. MULTIVITAMI 2020-0 Yes Take by Un mel N ORAL 3-03 mouth. ity of 23:00: [place] [address] Medical Branch thiamine 2020-0 Yes 100mg Take 100 Univ ers (VITAMIN 3-03 mg by ity of B-1) 100 mg 23:00: mouth [place] tablet 52 daily. Medical Branch aspirin 81 2020-0 Yes 81mg Take 81 mg U nivers mg chewable 3-03 by mouth ity of tablet 23:00: daily. [place] [address] Medical Branch atorvastati 2020-0 Yes 40mg Take 40 mg Univers n 40 mg 3-03 by mouth ity of tablet 23:00: at [place] [address] bedtime. Medical Branch NaCl 0.9% 2020-0 Yes [...] [place] C (B 52 Medical COMPLEX-VIT Branch RAAZ C-FOLIC ACID ORAL) potassium 2020-0 Yes 20meq Take 20 Univ ers chloride 20 3-03 mEq by ity of mEq packet 23:00: mouth [place] 52 daily. Medical Branch Cholecalcif 2020-0 Yes Take by Un mel ann, 3-03 mouth. ity of Vitamin D3, 23:00: [place] 2,000 [place] [address] Medical capsule Branch metoprolol 2020-0 Yes 12.5mg Take 12.5 Univers tartrate 3-03 mg by ity of 12.5 mg 23:00: mouth 2 [place] 52 (two) Medical times Branch daily. MULTIVITAMI 2020-0 Yes Take by Un mel N ORAL 3-03 mouth. ity of 23:00: [place] [address] Medical Branch thiamine 2020-0 Yes 100mg Take 100 Univ ers (VITAMIN 3-03 mg by ity of B-1) 100 mg 23:00: mouth [facility] 52 daily. Medical Branch aspirin 81 2020-0 Yes 81mg Take 81 mg U nivers mg chewable 3-03 by mouth ity of tablet 23:00: daily. [place] [address] Medical Branch atorvastati 2020-0 Yes 40mg Take 40 mg Univers n 40 mg 3-03 by mouth ity of tablet 23:00: at [place] [address] bedtime. Medical Branch NaCl 0.9% 2019-0 Yes [...] dose [place] mg 00 on Mon [facility] 01/16/20 at Branch 2100, Until Discontinu ed, Routine ranolazine 2020-0 2020- No [id number] 500mg Take 1 [facility] 500 mg 12 - 04-03 tablet by ity of hr tablet 00:00: 04:59 mouth [place] 00 :00 every 12 Medical (twelve) Branch hours for 30 days. ranolazine 2020-0 2020- No [id number] 500mg Take 1 [facility] 500 mg 12 - 04-03 tablet by ity of hr tablet 00:00: 04:59 mouth [place] 00 :00 every 12 Medical (twelve) Branch hours for 30 days. ranolazine 2020-0 2020- No [id number] 500mg Take 1 [facility] 500 mg 12 01-16- tablet by ity of hr tablet 00:00: 04:59 mouth [place] 00 :00 every 12 Medical (twelve) Branch hours for 30 days. ranolazine 2020-0 2020- No [id number] 500mg Take 1 [facility] 500 mg 12 01-16- tablet by ity of hr tablet 00:00: 04:59 mouth [place] 00 :00 every 12 Medical (twelve) Branch hours for 30 days. ranolazine 2020-0 Yes 500mg 500 mg, Uni vers (RANEXA) 12 01-15 Oral, ity of hr tablet 22:30: Q12H, [place] 500 mg 00 First dose Medical on [facility] 01/16/20 at 1630, Until Discontinu ed, Routine insulin 2020-0 Yes 30U 30 Units, Unive rs glargine 01-15 Subcutaneo ity o f (LANTUS 15:00: [place], DAILY, [place] U-100) 00 First dose Medical injection on [facility] 30 Units 01/16/20 at 0900, Until Discontinu ed furosemide 2020-0 Yes 40mg 40 mg, Unive rs (LASIX) 01-15 Oral, ity of tablet 40 15:00: DAILY, [place] mg 00 First dose Medical on [facility] 01/16/20 at 0900, Until Discontinu ed, Routine aspirin 2020-0 Yes 81mg 81 mg, Univers chewable 01-15 Oral, ity of tablet 81 15:00: DAILY, [place] mg 00 First dose Medical on [facility] 01/16/20 at 0900, Until Discontinu ed, Routine metoprolol 2020-0 Yes 12.5mg 12.5 mg, U nivers tartrate - Oral, BID, ity o f (LOPRESSOR) 14:00: First dose [place] tablet 12.5 00 on [facility] Medica l mg 01/16/20 at Branch 0800, Until Discontinu ed, Routine Sliding 2020-0 Yes Subcutaneo Univ ers Scale 3-02 us, Q6H, ity of Insulin-Reg 12:00: First dose [place] ular + Fsbg 00 on [facility] Medica l Testing 01/16/20 at Branch [...] 07:53 Q6HPRN, [place] 55 :55 Starting Medical 01/16/20 Branch [...] 3-02 Oral, ity of (TYLENOL) 07:54: Q6HPRN, [place] tablet 650 44 Starting Medic al [...] 01/15/20 at 2345, ADAMA furosemide 2018-11 Yes [id number] 40mg Take 1 [facility] 40 mg 0-26 tablet by ity of tablet 00:00: mouth [place] 00 daily. Medical Branch furosemide 2018-11 Yes [id number] 40mg Take 1 [facility] 40 mg 0-26 tablet by ity of tablet 00:00: mouth [place] 00 daily. Medical Branch furosemide 2018-11 Yes [id number] 40mg Take 1 [facility] 40 mg 0-26 tablet by ity of tablet 00:00: mouth [place] 00 daily. Medical Branch furosemide 2018-11 Yes [id number] 40mg Take 1 [facility] 40 mg 0-26 tablet by ity of tablet 00:00: mouth [place] 00 daily. Medical Branch furosemide 2018-11 2020- No [id number] 40mg Take 1 [facility] 40 mg 0-26 04-17 tablet by ity of tablet 00:00: 00:00 mouth [place] 00 :00 daily. Medical Branch magnesium 2018- Yes [id number] 400mg Take 400 Univers oxide 420 0-23 mg by ity of mg Tab 00:00: mouth [place] 00 daily. Medical Branch magnesium 2019-1 Yes [id number] 400mg Take 400 Univers oxide 420 0-23 mg by ity of mg Tab 00:00: mouth [place] 00 daily. Medical Branch magnesium 2019-1 Yes [id number] 400mg Take 400 Univers oxide 420 0-23 mg by ity of mg Tab 00:00: mouth [place] 00 daily. Medical Branch magnesium 2019- Yes [id number] 400mg Take 400 Univers oxide 420 0-23 mg by ity of mg Tab 00:00: mouth [place] 00 daily. [facility] magnesium 2019-1 Yes [id number] 400mg Take 400 Univers oxide 420 0-23 mg by ity of mg Tab 00:00: mouth [place] 00 daily. [facility] magnesium 2019- Yes [id number] 400mg Take 400 Univers oxide 420 0-23 mg by ity of mg Tab 00:00: mouth [place] 00 daily. [facility] magnesium 2019- 2020- No [id number] 400mg Take 400 Univers oxide 420 0-23 04-22 mg by ity of mg Tab 00:00: 00:00 mouth [place] 00 :00 daily. [facility] Insulin 2019-0 Yes [id number] 30U inject 30 Univers Glargine 9-11 Units ity of 100 unit/mL 00:00: under the [place] (3 mL) 00 skin every Medical injection morning. Branch Insulin 2019-0 Yes [id number] 30U inject 30 Univers Glargine 9-11 Units ity of 100 unit/mL 00:00: under the [place] (3 mL) 00 skin every Medical injection morning. Branch Insulin 2019-0 Yes [id number] 30U inject 30 Univers Glargine 9-11 Units ity of 100 unit/mL 00:00: under the [place] (3 mL) 00 skin every Medical injection morning. Branch Insulin 2019-0 Yes [id number] 30U inject 30 Univers Glargine 9-11 Units ity of 100 unit/mL 00:00: under the [place] (3 mL) 00 skin every Medical injection morning. Branch Insulin 2019-0 Yes [id number] 30U inject 30 Univers Glargine 9-11 Units ity of 100 unit/mL 00:00: under the [place] (3 mL) 00 skin every Medical injection morning. Branch Insulin Yes [id number] 30U inject 30 Univers Glargine 9-11 Units ity of 100 unit/mL 00:00: under the [place] (3 mL) 00 skin every Medical injection morning. Branch Insulin Yes [id number] 30U inject 30 Univers Glargine 9-11 Units ity of 100 unit/mL 00:00: under the [place] (3 mL) 00 skin every Medical injection morning. Branch Insulin 2020- No [id number] 30U inject 30 Univers Glargine 9-11 04-22 [...] mg under ity of 15:26: the skin. [place] [address] Medical Branch Cholecalcif Yes Take by Un mel ann, 5-10 mouth. ity of Vitamin D3, 15:26: [place] 2,000 unit 43 Medical capsule Branch metoprolol Yes 12.5mg Take 12.5 Univers tartrate 5-10 mg by ity of 12.5 mg 15:26: mouth 2 [place] 43 (two) Medical times Branch daily. MULTIVITAMI Yes Take by Un mel N ORAL 5-10 mouth. ity of 15:26: [place] [address] Medical Branch thiamine Yes 100mg Take 100 Univ ers (VITAMIN 5-10 mg by ity of B-1) 100 mg 15:26: mouth [place] tablet 43 daily. Medical Branch aspirin 81 Yes 81mg Take 81 mg U nivers mg chewable 5-10 by mouth ity of tablet 15:26: daily. [place] [address] Medical Branch atorvastati Yes 40mg Take 40 mg Univers n 40 mg 5-10 by mouth ity of tablet 15:26: at [place] [address] bedtime. Medical Branch furosemide Yes 40mg Take 40 mg U nivers 40 mg 5-10 by mouth ity of tablet 15:26: daily. [place] [address] Medical Branch NaCl 0.9% 2019-0 Yes 10mL [...] mg under ity of 15:26: the skin. [place] [address] Medical Branch Cholecalcif 0 Yes Take by Un mel ann, 5-10 mouth. ity of Vitamin D3, 15:26: [place] 2,000 unit Medical capsule Branch metoprolol 0 Yes 12.5mg Take 12.5 Univers tartrate 5-10 mg by ity of 12.5 mg 15:26: mouth 2 [place] [address] (two) Medical times Branch daily. MULTIVITAMI 0 Yes Take by Un mel N ORAL 5-10 mouth. ity of 15:26: [place] [address] Medical Branch thiamine 0 Yes 100mg Take 100 Univ ers (VITAMIN 5-10 mg by ity of B-1) 100 mg 15:26: mouth [place] tablet 43 daily. Medical Branch aspirin 81 0 Yes 81mg Take 81 mg U nivers mg chewable 5-10 by mouth ity of tablet 15:26: daily. [place] [address] Medical Branch atorvastati 0 Yes 40mg Take 40 mg Univers n 40 mg 5-10 by mouth ity of tablet 15:26: at [place] 43 bedtime. Medical Branch furosemide 0 Yes 40mg Take 40 mg U nivers 40 mg 5-10 by mouth ity of tablet 15:26: daily. [place] [address] Medical Branch NaCl 0.9% 2019-0 Yes 10mL Inject 10 Uni vers (NS) Soln 5-10 mL ity of 10 mL with 15:26: intravenou [place] sodium 43 sly once Medical chloride now. Branch 2.5 mEq/mL SolP 17.125 mEq insulin 2019-0 Yes [id number] 4U inject 4 U nivers lispro, 5-10 Units ity of human, 100 00:00: under the [place] unit/mL 00 skin 3 Medical injection (three) Branch times daily before meals. insulin 2019-0 Yes [id number] 4U inject 4 U nivers lispro, 5-10 Units ity of human, 100 00:00: under the [place] unit/mL 00 skin 3 Medical injection (three) Branch times daily before meals. insulin 2018-0 Yes [id number] 4U inject 4 U nivers lispro, 5-10 Units ity of human, 100 00:00: under the [place] unit/mL 00 skin 3 Medical injection (three) Branch times daily before meals. insulin 2018-0 Yes [id number] 4U inject 4 U nivers lispro, 5-10 Units ity of human, 100 00:00: under the [place] unit/mL 00 skin 3 Medical injection (three) Branch times daily before meals. insulin 2018-0 Yes [id number] 4U inject 4 U nivers lispro, 5-10 Units ity of human, 100 00:00: under the [place] unit/mL 00 skin 3 Medical injection (three) Branch times daily before meals. insulin 2018-0 Yes [id number] 4U inject 4 U nivers lispro, 5-10 Units ity of human, 100 00:00: under the [place] unit/mL 00 skin 3 Medical injection (three) Branch times daily before meals. Insulin 2018-0 Yes [id number] 18U inject Uni vers Glargine 5-10 18-24 ity of 100 unit/mL 00:00: Units [place] (3 mL) 00 under the Medical injection skin every Bran ch morning. insulin 2018-0 Yes [id number] 4U inject 4 U nivers lispro, 5-10 Units ity of human, 100 00:00: under the [place] unit/mL 00 skin 3 Medical injection (three) Branch times daily before meals. insulin 2019-0 Yes [id number] 4U inject 4 U nivers lispro, 5-10 Units ity of human, 100 00:00: under the [place] unit/mL 00 skin 3 Medical injection (three) Branch times daily before meals. insulin 2018-0 Yes [id number] 4U inject 4 U nivers lispro, 5-10 Units ity of human, 100 00:00: under the [place] unit/mL 00 skin 3 Medical injection (three) Branch times daily before meals. insulin 2018- Yes [id number] 4U inject 4 U nivers lispro, 5-10 Units ity of human, 100 00:00: under the [place] unit/mL 00 skin 3 Medical injection (three) Branch times daily before meals. insulin Yes [id number] 4U inject 4 U nivers lispro, 5-10 Units ity of human, 100 00:00: under the [place] unit/mL 00 skin 3 Medical injection (three) Branch times daily before meals. insulin 2020- No [id number] 4U inject 4 Univers lispro, 5-10 05-07 Units ity of human, 100 00:00: 00:00 under the [place] unit/mL 00 :00 skin 3 Medical injection (three) Branch times daily before meals. insulin 2019- No [id number] 4U inject 4 Univers lispro, 5-10 05-07 Units ity of human, 100 00:00: 00:00 under the [place] unit/mL 00 :00 skin 3 Medical injection (three) Branch times daily before meals. Insulin 2019- No [id number] 18U inject Un mel Glargine 03-25 18-24 [...] Common Chloride Chloride Millender with food [facility] Tylenol # 3 Tylenol # 3 Yes Anneliese one tab Common Millender [facility] Vitamin D-3 Vitamin D-3 Yes Anneliese 2 capsule Common Millender [facility] Humalog Humalog Yes Anneliese as Common Millender directed [facility] Aspir-Low Aspir-Low Yes Anneliese 1 tablet Common Millender [facility] Namzaric Namzaric Yes Anneliese 1 Common Millender [facility] Zyprexa Zyprexa Yes Anneliese 1 tablet Comm on Millender [facility] Vitamin B-1 Vitamin B-1 Yes Anneliese 1 tablet Common Millender [facility] Multivitami Multivitami Yes Anneliese as Common n n Millender directed [facility] Lantus Lantus Yes Anneliese as Common Millender directed [facility] Lasix Lasix Yes Anneliese 1 tablet Common Millender [facility] Isosorbide Isosorbide Yes Anneliese 1 tablet Common Mononitrate [facility]onitrate [facility] Lyrica Lyrica Yes Anneliese 1 capsule Commo n Millender [facility] Immunizations Ordered Filled Immunization Date Status Comments [facility] Immunization Name Name SARS-COV-2 COVID-19 2021-09-16 Completed Unive rsity of MODERNA VACCINE 00:00:00 [facility] SARS-COV-2 COVID-19 2021-09-16 Completed Unive rsity of MODERNA VACCINE 00:00:00 [facility] SARS-COV-2 COVID-19 2021-09-16 Completed Unive rsity of MODERNA VACCINE 00:00:00 [facility] SARS-COV-2 COVID-19 2021-09-16 Completed Unive rsity of MODERNA VACCINE 00:00:00 [facility] SARS-COV-2 COVID-19 2021-08-17 Completed Unive rsity of MODERNA VACCINE 00:00:00 [facility] Influenza High Dose 2021-08-17 Completed Unive rsity of 00:00:00 [facility] SARS-COV-2 COVID-19 2021-08-17 Completed Unive rsity of MODERNA VACCINE 00:00:00 [facility] Influenza High Dose 2021-08-17 Completed Unive rsity of 00:00:00 [facility] SARS-COV-2 COVID-19 2021-08-17 Completed Unive rsity of MODERNA VACCINE 00:00:00 [facility] Influenza High Dose 2021-08-17 Completed Unive rsity of 00:00:00 [facility] SARS-COV-2 COVID-19 2021-08-17 Completed Unive rsity of MODERNA VACCINE 00:00:00 [facility] Influenza High Dose 2021-08-17 Completed Unive rsity of 00:00:00 [facility] Zoster(Zostavax)( 2020-09-14 Completed Unive rsity of ingles) 00:00:00 [facility] Zoster(Zostavax)( 2020-09-14 Completed Unive rsity of ingles) 00:00:00 [facility] Zoster(Zostavax)( 2020-09-14 Completed Unive rsity of ingles) 00:00:00 [facility] Zoster(Zostavax)( 2020-09-14 Completed Unive rsity of ingles) 00:00:00 [facility] Influenza High Dose 2020-07-13 Completed Unive rsity of 00:00:00 [facility] Influenza High Dose 2020-07-13 Completed Unive rsity of 00:00:00 [facility] Influenza High Dose 2020-07-13 Completed Unive rsity of 00:00:00 [facility] Influenza High Dose 2020-07-13 Completed Unive rsity of 00:00:00 [facility] Influenza High Dose 2019-09-15 Completed Unive rsity of 00:00:00 [facility] Influenza High Dose 2019-09-15 Completed Unive rsity of 00:00:00 [facility] Influenza High Dose 2019-09-15 Completed Unive rsity of 00:00:00 [facility] Influenza High Dose 2019-09-15 Completed Unive rsity of 00:00:00 [facility] Influenza Virus 2018-09-09 Completed Universit y of Vaccine 00:00:00 [facility] Influenza Virus 2018-09-09 Completed Universit y of Vaccine 00:00:00 [facility] Influenza Virus 2018-09-09 Completed Universit y of Vaccine 00:00:00 [facility] Influenza Virus 2018-09-09 Completed Universit y of Vaccine 00:00:00 [facility] Influenza Virus 2018-09-09 Completed Universit y of Vaccine 00:00:00 [facility] Influenza Virus 2018-09-09 Completed Universit y of Vaccine 00:00:00 [facility] Influenza Virus 2018-09-09 Completed Universit y of Vaccine 00:00:00 [facility] Influenza Virus 2018-09-09 Completed Universit y of Vaccine 00:00:00 [facility] Influenza Virus 2018-09-09 Completed Universit y of Vaccine 00:00:00 [facility] Influenza Virus 2018-09-09 Completed Universit y of Vaccine 00:00:00 [facility] Influenza Virus 2018-09-09 Completed Universit y of Vaccine 00:00:00 [facility] Influenza Virus 2018-09-09 Completed Universit y of Vaccine 00:00:00 [facility] Influenza Virus 2018-09-09 Completed Universit y of Vaccine 00:00:00 [facility] Influenza Virus 2018-09-09 Completed Universit y of Vaccine 00:00:00 [facility] Influenza Virus 2018-09-09 Completed Universit y of Vaccine 00:00:00 [facility] Influenza Virus 2018-09-09 Completed Universit y of Vaccine 00:00:00 [facility] Influenza Virus 2018-09-09 Completed Universit y of Vaccine 00:00:00 [facility] Influenza Virus 2018-09-09 Completed Universit y of Vaccine 00:00:00 [facility] Influenza Virus 2018-09-09 Completed Universit y of Vaccine 00:00:00 [facility] Influenza Virus 2018-09-09 Completed Universit y of Vaccine 00:00:00 [facility] Influenza Virus 2018-09-09 Completed Universit y of Vaccine 00:00:00 [facility] Influenza Virus 2018-09-09 Completed Universit y of Vaccine 00:00:00 [facility] Pneumococcal 2016-11-02 Completed University o f Polysaccharide, 00:00:00 [place] Med ical PPSV23 (PNEUMOVAX) [place] Pneumococcal 2016-11-02 Completed University o f Polysaccharide, 00:00:00 [place] Med ical PPSV23 (PNEUMOVAX) Branch Pneumococcal 2016-11-02 [...] ical PPSV23 (PNEUMOVAX) Branch Pneumococcal 2016-11-02 Completed Homeland o f Polysaccharide, 00:00:00 [place] Med ical PPSV23 (PNEUMOVAX) Branch Pneumococcal 2016-11-02 Completed [place] o f Polysaccharide, 00:00:00 [place] Med ical PPSV23 (PNEUMOVAX) Branch Pneumococcal 2016-11-02 Completed [place] o f Polysaccharide, 00:00:00 [place] Med ical PPSV23 (PNEUMOVAX) Branch Vital Signs Vital Name Observation Time Observation Value Comments Source Systolic blood 2022-03-01 16:36:00 143 mm[Hg] Univer sity of pressure [facility] Diastolic blood 2022-03-01 16:36:00 80 mm[Hg] Unive rsity of [facility] Heart rate 2022-03-01 16:36:00 98 /min [facility] Respiratory rate 2022-03-01 16:36:00 16 /[facility] in 2022-03-01 16:36:00 97 /min University of Arterial blood by [place] [facility] Pulse oximetry Branch Body temperature 2022-03-01 11:42:[address] [facility] Body height 2022-03-01 11:42:00 170.2 cm [facility] Body weight 2022-03-01 11:42:00 77.111 kg [facility] BMI 2022-03-01 11:42:00 26.63 kg/m2 [facility] Systolic blood 2021-11-02 17:17:00 109 mm[Hg] Univer sity of [facility] Diastolic blood 2021-11-02 17:17:00 67 mm[Hg] Unive rsity of [facility] Heart rate 2021-11-02 17:17:00 84 /min [facility] Body temperature 2021-11-02 17:17:[address] [facility] ersity [facility] Respiratory rate 2021-11-02 17:17:00 18 /min [facility] O[facility] saturation in 2021-11-02 17:17:00 95 /min University Arterial blood by [place] [facility] Pulse oximetry Branch Body weight 2021-11-02 [...] /min University of Arterial blood by [place] [facility]ie Pulse oximetry Branch Body temperature 2021-04-25 [...] /min University of Arterial blood by [place] Medi birdie Pulse oximetry Branch Heart rate [...] 98 /min University of Arterial blood by [facility] Pulse oximetry Branch Heart rate [...] 97 /min University of Arterial blood by [facility] Pulse oximetry Branch Body temperature [...] 97 /min University of Arterial blood by [facility] Pulse oximetry Branch Body temperature [...] 02:31:00 72 mm[Hg] Unive rsity of pressure [facility] Branch Heart rate 2020-03-24 02:31:00 69 /min Universi ty of [facility] Body temperature 2020-03-24 02:31:00 36.39 Priyanka Univ ersity of [facility] Branch Respiratory rate 2020-03-24 02:31:00 18 /min Univ ersity of [facility] Branch Oxygen saturation in 2020-03-24 02:31:00 97 /min University of Arterial blood by [facility] Pulse oximetry Branch Systolic blood 2020-03-23 21:35:00 100 mm[Hg] Univer sity of pressure [place] [facility] Diastolic blood 2020-03-23 21:35:00 59 mm[Hg] Unive rsity of pressure [facility] Heart rate 2020-03-23 21:35:00 79 /min Universi ty of [place] Medical [place] Body temperature 2020-03-23 21:35:00 36.78 Priyanka Univ ersity of [facility] Branch Respiratory rate 2020-03-23 21:35:00 18 /min Univ ersity of [facility] Oxygen saturation in 2020-03-23 21:35:00 99 /min University of Arterial blood by [facility] Pulse oximetry Branch Body weight [...] /min University of Arterial blood by [facility] birdie Pulse oximetry Branch Body temperature [...] 95 /min University of Arterial blood by [facility] Pulse oximetry Branch Body height [...] Branch Respiratory rate 2020-03-02 15:49:00 19 /min [facility] Oxygen saturation in 2020-03-02 15:49:00 96 /min University of Arterial blood by [facility] Pulse oximetry Branch Body height 2020-03-01 00:54:00 170.2 cm Universi ty [facility] Body weight 2020-03-01 00:54:00 76.975 kg Universi ty [facility] BMI 2020-03-01 00:54:00 26.58 kg/m2 Universi ty [facility] Systolic blood 2020-01-17 21:08:00 116 mm[Hg] Univer sity of pressure [facility] Diastolic blood 2020-01-17 21:08:00 78 mm[Hg] Unive rsity of pressure [facility] Heart rate 2020-01-17 21:08:00 88 /min Universi [facility] Body temperature 2020-01-17 21:08:00 36.72 Priyanka [facility] Respiratory rate 2020-01-17 21:08:00 18 /min [facility] Oxygen saturation in 2020-01-17 21:08:00 98 /min [place] of Arterial blood by [facility] Pulse oximetry Branch Body height 2020-01-16 06:21:00 172.7 cm Universi ty [facility] Body weight 2020-01-16 04:35:00 83.462 kg [facility] BMI 2020-01-16 04:35:00 27.98 kg/m2 [facility] Procedures Procedure Date / Time Performing Clinician Source Performed XR LUMBAR SPINE 2 VW 2022-03-01 14:18:00 Angelika Aguilar [facility] EXTERNAL PROVIDER RECORDS 2021-11-19 06:01:00 Doctor Unassigned, [facility] Vaughn [facility] POCT GLUCOSE (AUTOMATED) 2021-11-02 22:49:00 Aida Shah [facility] [place] [facility] POCT GLUCOSE (AUTOMATED) 2021-11-02 17:06:00 Aida Shah [facility] [place] [facility] POCT GLUCOSE (AUTOMATED) 2021-11-02 13:30:00 Aida Shah [facility] [place] [facility] TROPONIN I 2021-11-02 09:29:00 Alexandra Hdz [facility] BASIC METABOLIC PANEL 2021-11-02 09:29:00 [facility] ([facility], K, CL, CO2, GLUCOSE, Medica l Branch BUN, CREATININE, CA) CBC WITH DIFF 2021-11-02 09:29:00 [facility] N-TERMINAL PRO-BNP 2021-11-02 09:29:00 Alexandra Hdz [facility] POCT GLUCOSE (AUTOMATED) 2021-11-02 01:27:00 Aida Shah [employer] [facility] [place] [facility] POCT GLUCOSE (AUTOMATED) 2021-11-01 17:37[facility] 2021-11-01 13:40[facility]00 [facility]) 2021-11-01 01:10:00 Aida Shah [facility] POCT GLUCOSE (AUTOMATED) 2021-10-31 22:28:00 Alyssa Aida [facility] POCT GLUCOSE (AUTOMATED) 2021-10-31 17:29:00 Martha Drake [facility] TROPONIN I 2021-10-31 16:25:00 Alexandra Hdz [facility] TRANSTHORACIC ECHO (TTE) 2021-10-31 15:53:00 Alexandra Hdz [facility] COMPLETE W/ CONTRAST Medical [facility] POCT GLUCOSE (AUTOMATED) 2021-10-31 13:39:00 Martha Drake Un [facility] TROPONIN I 2021-10-31 10:08:00 [facility] BASIC METABOLIC PANEL 2021-10-31 10:08:00 [facility] (NA, K, CL, CO2, GLUCOSE, Medica l Branch BUN, CREATININE, CA) LIPID PANEL ([id number])(TOTAL 2021-10-31 10:08:00 Alexandra Hdz [facility], HDL) CBC WITH DIFF 2021-10-31 10:08:00 [facility] 2021-10-31 10:08[facility]00 [facility] N-TERMINAL PRO-BNP 2021-10-31 10:08:00 Alexandra Hdz [facility] TROPONIN I 2021-10-31 06:17:00 [facility]ST 1 VW 2021-10-31 01:30:56 Martha Drake [facility] LIPASE 2021-10-31 01:25:00 Martha Drake [facility] TROPONIN I 2021-10-31 01:25:00 Martha Drake [facility] COMP. METABOLIC PANEL 2021-10-31 01:25:00 Martha Drake [facility] ([id number]) [facility] CBC WITH DIFF 2021-10-31 01:25:00 Martha Drake [facility] GLYCOSYLATED HEMOGLOBIN 2021-10-31 01:25:00 [facility] PROTHROMBIN TIME / INR 2021-10-31 01:25:00 Martha Drake [facility] ACTIVATED PARTIAL 2021-10-31 01:25:00 Martha Drake [facility] THRFormerly [facility] N-TERMINAL PRO-BNP 2021-10-31 01:25:00 Martha Drake [facility] COVID-19 (ID NOW RAPID 2021-10-31 01:25:00 Martha Drake [facility] TESTING) Medical Branch LAB ONLY COVID 2021-10-31 01:25:00 Martha Drake [facility] INTERPRETATION [facility] HB ECG ROUTINE & RHYTHM 2021-10-31 01:20:[address] [facility] URINALYSIS 2021-04-25 21:01:00 Nallely Zaho [facility] XR LUMBAR SPINE 2 VW 2021-04-25 18:41:00 Nallely Zhao [facility] XR HIPS 2 VW LEFT 2021-04-25 18:41:00 Nallely Zhao [facility] CONSENT/REFUSAL FOR 2021-04-25 15:43:06 Doctor [place], [facility] DIAGNOSIS AND TREATMENT [facility] [place] [facility] CERVICAL SPINE WO 2020-06-26 09:35:01 NandiniscMartha [facility] CONTRAST [facility] CT LUMBAR SPINE WO 2020-06-26 09:35:01 Nandinisc [facility] CONTRAST [facility] CT THORACIC SPINE WO 2020-06-26 09:35:01 [facility] CONTRAST [facility] UNILATERAL DUPLEX SCAN OF 2020-05-24 14:53:40 [facility] [place] XR ANKLE 3+ VW LEFT 2020-05-24 13:22:26 Charanjit Heck [facility] HEPATIC FUNCTION PANEL 2020-05-24 13:13:00 Charanjit Heck [facility] ([id number]) (ALB,T.PRO,BILI Medical Branch T,BU/BC,ALT,AST,ALK PHOS) BASIC METABOLIC PANEL 2020-05-24 13:13:00 Charanjit Heck [facility] (NA, K, CL, CO2, GLUCOSE, Medica l Branch BUN, CREATININE, CA) CBC WITH DIFFERENTIAL 2020-05-24 13:13:00 Charanjit Heck [facility] PROTHROMBIN TIME / INR 2020-05-24 13:13:00 Charanjit Heck [facility] ACTIVATED PARTIAL 2020-05-24 13:13:00 Charanjit Heck [facility] THRFormerly [facility] NOTICE OF PRIVACY 2020-05-24 11:38:26 Doctor Blaise, [facility] PRACTICES [facility] [place] CONSENT/REFUSAL FOR 2020-05-24 11:35:52 Doctor Blaise, [facility] [facility] POCT GLUCOSE (AUTOMATED) 2020-03-23 22:32:00 Jamel Flores [facility] POCT GLUCOSE (AUTOMATED) 2020-03-23 18:07:00 Jamel Flores Justina [facility] POCT GLUCOSE (AUTOMATED) 2020-03-23 14:57:00 Jamel Flores [facility] ECHO ROUTINE W/DOPPLER 2020-03-23 13:33:57 [facility] 2020-03-23 12:56:59 Jamel Flores [facility] MAGNESIUM 2020-03-23 11:15:00 Jerome [facility] TROPONIN I 2020-03-23 11:15:00 [facility] BASIC METABOLIC PANEL 2020-03-23 11:15:00 Jerome [facility] (NA, K, CL, CO2, GLUCOSE, Medica l Branch BUN, CREATININE, CA) PROTHROMBIN TIME / INR 2020-03-23 11:15:00 Tereza Cano [facility] ACTIVATED PARTIAL 2020-03-23 11:15:00 Jerome [facility] EKG-12 LEAD 2020-03-23 07:51:19 Jamel Flores [facility] MAGNESIUM 2020-03-23 05:55:00 Jerome [facility] TROPONIN I 2020-03-23 05:55:00 Jerome [facility] BASIC METABOLIC PANEL 2020-03-23 05:55:00 Jerome [facility] (NA, K, CL, CO2, GLUCOSE, Medica l Branch BUN, CREATININE, CA) LIPID PANEL ([id number])(TOTAL 2020-03-23 05:55:00 Tereza [facility] TRIGLYCERIDES, HDL) PROTHROMBIN TIME / INR 2020-03-23 02:55:00 Sallie Eckert [facility] ACTIVATED PARTIAL 2020-03-23 02:55:00 [facility] 2 VW 2020-03-23 01:52:37 Singletary, [facility] CORONAVIRUS COVID-19 2020-03-23 00:50:00 Esteban Singletary [facility] FERRITIN SERUM 2020-03-22 23:36:00 [facility] TROPONIN I 2020-03-22 23:36:00 Danielle [facility] COMP. METABOLIC PANEL 2020-03-22 23:36:00 Danielle [id number] IRON PANEL 2020-03-22 23:36:00 Jerome [facility] CBC WITH DIFFERENTIAL 2020-03-22 23:36:00 Danielle [facility] N-TERMINAL PRO-BNP 2020-03-22 23:36:[address] [facility] EKG-12 LEAD 2020-03-22 23:08:53 [facility] 2020-03-22 23:08:15 Danielle [facility] XR CHEST 1 VW 2020-03-21 20:42:35 Myles Harry [facility] LACTIC ACID WHOLE BLOOD 2020-03-21 20:38:00 Myles Harry [facility] LIPASE 2020-03-21 20:19:00 Myles Harry [facility] TROPONIN I 2020-03-21 20:19:00 Myles Harry [facility] COMP. METABOLIC PANEL 2020-03-21 20:19:00 Myles Harry [facility] ([id number]) [facility] PROTHROMBIN TIME / INR 2020-03-21 20:19:00 Myles Harry [facility] N-TERMINAL PRO-BNP 2020-03-21 20:19:00 Myles Harry [facility] CORONAVIRUS COVID-19 2020-03-21 20:19:00 Myles Harry [facility] EKG-12 LEAD 2020-03-21 20:11:28 Myles Harry [facility] POCT GLUCOSE (AUTOMATED) 2020-03-07 20:56:00 EdconsueloSarah [employer] [facility] POCT GLUCOSE (AUTOMATED) 2020-03-07 15:34:00 EdconsueloSaarh [employer] [facility] POCT GLUCOSE (AUTOMATED) 2020-03-07 12:56:00 Julio CesarSarah [facility] URIC ACID 2020-03-07 10:14:00 [place] Garza [facility] TROPONIN I 2020-03-07 10:14:00 Steven [facility] BASIC METABOLIC PANEL 2020-03-07 10:14:00 [facility] (NA, K, CL, CO2, GLUCOSE, Medica l Branch BUN, CREATININE, CA) CBC WITH DIFFERENTIAL 2020-03-07 10:14:00 Julio Cesar [facility] N-TERMINAL PRO-BNP 2020-03-07 10:14:00 Steven [facility] POCT GLUCOSE (AUTOMATED) 2020-03-06 21:16:00 [facility]elo [facility] POCT GLUCOSE (AUTOMATED) 2020-03-06 16:10:00 Julio Cesar [facility] POCT GLUCOSE (AUTOMATED) 2020-03-06 12:38:00 Edconsuelo [facility] TROPONIN I 2020-03-06 08:51:00 Steven [facility] BASIC METABOLIC PANEL 2020-03-06 08:51:[address] [facility] (NA, K, CL, CO2, GLUCOSE, Medica l Branch BUN, CREATININE, CA) CBC WITH DIFFERENTIAL 2020-03-06 08:51:00 Edconsuelo [facility] POCT GLUCOSE (AUTOMATED) 2020-03-06 01:16:00 Julio Cesar [facility] TROPONIN I 2020-03-05 23:25:00 Julio Cesar [facility] POCT GLUCOSE (AUTOMATED) 2020-03-05 21:14:00 Edionrosalio [facility] POCT GLUCOSE (AUTOMATED) 2020-03-05 16:39:00 [facility] hospital[facility] POCT GLUCOSE (AUTOMATED) 2020-03-05 12:47:00 Julio Cesar [facility] TROPONIN I 2020-03-05 09:50:00 Ramónfirsthealth [facility] hospitalrosalio [facility] BASIC METABOLIC PANEL 2020-03-05 09:50:00 [facility] (NA, K, CL, CO2, GLUCOSE, Medica l Branch BUN, CREATININE, CA) CBC WITH DIFFERENTIAL 2020-03-05 09:50:00 [facility] EKG-12 LEAD 2020-03-05 00:36:54 [facility] 2020-03-05 00:31:03 Renan [facility] CORONAVIRUS COVID-19 2020-03-05 00:03:00 Charanjit Heck [facility] XR CHEST 1 VW 2020-03-04 23:58:59 Charanjit Heck [facility] LIPASE 2020-03-04 23:29:00 Charanjit Heck [facility] TROPONIN I 2020-03-04 23:29:00 [facility] SystemCharanjit [facility] HEPATIC FUNCTION PANEL 2020-03-04 23:29:00 Charanjit Heck [facility] ([id number]) (ALB,T.PRO,BILI [facility] T,BU/BC,ALT,AST,ALK PHOS) BASIC METABOLIC PANEL 2020-03-04 23:29:00 Charanjit Heck [facility] (NA, K, CL, CO2, GLUCOSE, Medica l Branch BUN, CREATININE, CA) CBC WITH DIFFERENTIAL 2020-03-04 23:29:00 Charanjit Heck [facility] PROTHROMBIN TIME / INR 2020-03-04 23:29:00 Charanjit Heck [facility] ACTIVATED PARTIAL 2020-03-04 23:29:00 [facility] THRFormerly [facility] N-TERMINAL PRO-BNP 2020-03-04 23:29:[address] [facility] EKG-12 LEAD 2020-03-04 23:15:42 Umang [facility] EKG-12 LEAD 2020-03-04 23:10:23 Umang [facility] EMERGENCY DEPARTMENT 2020-03-04 05:01:00 Doctor Unassigned, [facility] DOCUMENTS [facility] POCT GLUCOSE (AUTOMATED) 2020-03-02 15:52:00 Lulu Harris [facility] POCT GLUCOSE (AUTOMATED) 2020-03-02 12:39:00 Lulu Harris [facility] MAGNESIUM 2020-03-02 08:57:00 Carolyn [facility] BASIC METABOLIC PANEL 2020-03-02 08:57:00 Ivory Leon [facility] (NA, K, CL, CO2, GLUCOSE, Medica l Branch BUN, CREATININE, CA) N-TERMINAL PRO-BNP 2020-03-02 08:57:[address] [facility] POCT GLUCOSE (AUTOMATED) 2020-03-01 20:39:00 Lulu Harris [facility] MAGNESIUM 2020-03-01 08:43:00 Lulu Harris [facility] TROPONIN I 2020-03-01 08:43:00 Carolyn [facility] BASIC METABOLIC PANEL 2020-03-01 08:43:00 Lulu Harris [facility] (NA, K, CL, CO2, GLUCOSE, Medica l Branch BUN, CREATININE, CA) CBC WITH DIFFERENTIAL 2020-03-01 08:43:00 Lulu Harris [facility] N-TERMINAL PRO-BNP 2020-03-01 08:43:[address] [facility] VITAMIN B12, LEVEL 2020-03-01 03:49:[address] [facility] FOLATE 2020-03-01 03:49:00 Carolyn alek [facility] SEDIMENTATION RATE 2020-03-01 03:49:[address] [facility] POCT GLUCOSE (AUTOMATED) 2020-03-01 03:39:00 Lulu Harris [facility] PHOSPHORUS 2020-03-01 02:28:00 Lulu Harris [facility] URIC ACID 2020-03-01 02:28:00 Carolyn [facility] TROPONIN I 2020-03-01 02:28:00 Carolyn [facility] HEPATIC FUNCTION PANEL 2020-03-01 02:28:00 Ivory Leon [facility] ([id number]) (ALB,T.PRO,BILI [facility] T,BU/BC,ALT,AST,ALK PHOS) PROTHROMBIN TIME / INR 2020-03-01 02:28:00 Ivory Leon [facility] N-TERMINAL PRO-BNP 2020-03-01 02:28:[address] [facility] PROCALCITONIN 2020-03-01 02:28:00 Carolyn [facility] EKG-12 LEAD 2020-03-01 01:54:29 Carolyn [facility] EKG-12 LEAD 2020-02-29 23:16:21 Bobo Urrutia [facility] XR CHEST 1 VW COVID 2020-02-29 23:14:25 oBbo Urrutia [facility] EKG-12 LEAD 2020-02-29 23:13:50 Bobo Urrutia [facility] LACTIC ACID WHOLE BLOOD 2020-02-29 22:21:00 Bobo Urrutia [facility] CORONAVIRUS COVID-19 2020-02-29 22:20:00 Bobo Urrutia [facility] CREATINE KINASE 2020-02-29 22:14:00 Carolyn alek [facility] URIC ACID 2020-02-29 22:14:00 Carolyn [facility] LIPASE 2020-02-29 22:14:00 Bobo Urrutia [facility] MAGNESIUM 2020-02-29 22:14:00 Carolyn [facility] TROPONIN I 2020-02-29 22:14:00 Bobo Urrutia [facility] THYROID STIMULATING 2020-02-29 22:14:00 Ivory Leon [facility] HORMONE [facility] BASIC METABOLIC PANEL 2020-02-29 22:14:00 Bobo Urrutia [facility] (NA, K, CL, CO2, GLUCOSE, Medica l Branch BUN, CREATININE, CA) CBC WITH DIFFERENTIAL 2020-02-29 22:14:00 Bobo Urrutia [facility] GLYCOSYLATED HEMOGLOBIN 2020-02-29 22:14:00 Carolyn [facility] (A1C) [facility] N-TERMINAL PRO-BNP 2020-02-29 22:14:[address] [facility] EKG-12 LEAD 2020-02-29 21:59:12 [facility] 2020-02-29 21:48:49 [facility]Y [facility]PART[facility] 2020-02-29 05:01:00 Doctor Unassigned, [facility] DOCUMENTS [facility] POCT GLUCOSE (AUTOMATED) 2020-01-17 18:15:00 Julio Cesar [facility] TROPONIN I 2020-01-17 16:31:00 Julio Cesar [facility] ACTIVATED PARTIAL 2020-01-17 16:31:00 Carolyn [facility] POCT GLUCOSE (AUTOMATED) 2020-01-17 11:56:00 Julio [facility] TROPONIN I 2020-01-17 09:52:00 Julio Cesar [facility] BASIC METABOLIC PANEL 2020-01-17 09:52:[address] [facility] (NA, K, CL, CO2, GLUCOSE, Medica l Branch BUN, CREATININE, CA) CBC WITH DIFFERENTIAL 2020-01-17 09:52:00 Julio Cesar [facility] ACTIVATED PARTIAL 2020-01-17 09:52:00 Julio Cesar [facility] POCT GLUCOSE (AUTOMATED) 2020-01-16 23:59:00 Julio Cesar [facility] EKG-12 LEAD 2020-01-16 22:15:50 [facility] 2020-01-16 20:04:00 [facility] ACTIVATED PARTIAL 2020-01-16 20:04:00 Kael [facility] POCT GLUCOSE (AUTOMATED) 2020-01-16 17:05:00 [facility] PO[facility] GLUCOSE (AUTOMATED) 2020-01-16 13:38:00 [facility] hospitalrosalio[facility] TROPONIN I 2020-01-16 11:11:00 [facility]first[facility] hospitalros[facility] LIPID PANEL ([id number])(TOTAL 2020-01-16 11:11:00 aRmónfirsthealth moore regional hospitalrosalioSt. [facility]OL[facility] TRIGLYCERIDES, HDL) ACTIVATED PARTIAL 2020-01-16 11:11:00 [facility] 2020-01-16 05:48:18 Umang [facility] XR CHEST 1 VW 2020-01-16 04:46:44 Umang [facility] TROPONIN I 2020-01-16 04:38:00 Umagn Charanjit [facility] HEPATIC FUNCTION PANEL 2020-01-16 04:38:00 Charanjit Heck [facility] ([id number]) (ALB,T.PRO,BILI Medical Branch T,BU/BC,ALT,AST,ALK PHOS) BASIC METABOLIC PANEL 2020-01-16 04:38:00 Charanjit Heck [facility] (NA, K, CL, CO2, GLUCOSE, Medica l Branch BUN, CREATININE, CA) CBC WITH DIFFERENTIAL 2020-01-16 04:38:00 Charanjit Heck [facility] GLYCOSYLATED HEMOGLOBIN 2020-01-16 04:38:00 [facility] PROTHROMBIN TIME / INR 2020-01-16 04:38:00 Charanjit Heck [facility] ACTIVATED PARTIAL 2020-01-16 04:38:00 Charanjit Heck [facility] THRLAS [facility] N-TERMINAL PRO-BNP 2020-01-16 04:38:[address] [facility] EKG-12 LEAD 2020-01-16 04:37:48 Charanjit Heck [facility] EKG-12 LEAD 2020-01-16 04:35:35 Charanjit Heck [facility] AUTHORIZATION FOR RELEASE 2019-07-12 05:01:00 Doctor Unassigned, [facility] Encounters Start End Encounter Admission Attending Care Care Encounter Source Date/Time Date/Time Type Type Clinicians Facility Department ID 2022-03-06 Outpatient [facility] [id number] [place] 08:51:10 [id number] [facility] 2021-12-16 [facility] [id number] [facility] 11:30:00 Jim [facility] 2021-12-16 [facility] [id number] Common 09:19:01 [facility] 2021-12-11 Outpatient Millender, ST[facility] [id number] Common 14:38:21 Anneliese [facility] 2021-12-11 Outpatient Millender, STLML[facility] [id number] Common 11:50:18 Anneliese [facility] 2021-09-16 Emergency [facility] [id number] Univers 00:23:34 ity [facility] 2021-09-13 Emergency [facility] [id number] Univers 11:42:[address] [facility] 2021-09-13 Emergency [facility] [id number] Univers 05:40:[address] [facility] 2022-03-05 2022-03-10 Inpatient Abiola MURGUIA, [facility] CAR [id number] [facility] 06:12:00 22:30:00 BRODIE 2022-03-01 2022-03-01 Emergency X LAUREN KSCESAR ERT [id number] Univers 06:52:00 12:04:00 ANGELIKA leon [facility] 2022-03-01 2022-03-01 Emergency Lauren KSCESAR [id number] Univers 06:52:00 12:04:00 Angelika RAMSEY [id number] ity [facility] [id number] [phone] [place] 084 Branch 2021-12-25 2021-12-25 Inpatient ATTAR, [facility] [id number] [place] 00:00:00 00:00:00 [address] 2021-12-19 2021-12-25 Inpatient LAUREN, [facility] [id number] [place] 00:00:00 00:00:00 JAYSON [address] 2021-12-24 2021-12-24 ambulatory STLMLC STLMLC [id number] Common 00:00:00 00:00:00 [facility] 2021-12-20 2021-12-20 Inpatient ATTAR, [facility] [id number] [place] 00:00:00 00:00:00 [address]MED [address] 2021-12-17 2021-12-17 ambulatory STLMLC STLMLC [id number] Common 00:00:00 00:00:00 [facility] 2021-12-16 2021-12-16 ambulatory STLMLC STLMLC [id number] Common 00:00:00 00:00:00 [facility] 2021-11-19 2021-11-19 Orders Doctor ROBERT 1.2.840.114 [id number] Univers 00:00:00 00:00:00 Only Unassigned, ASHLEIGH [id number] ity [facility] [id number] [place] [phone] [place] 009 Branch 2021-11-04 2021-11-04 Transition SHAREE Maria 1.2.840.114 [id number] Univers 00:00:00 00:00:00 of Care Supa GREWAL [id number] [id number] [id number] [place] 403 Branch 2021-10-30 2021-11-02 [facility] [id number] Univers 19:14:00 18:15:00 AIDA ity of [facility] Branch 2021-10-30 2021-11-02 Hospital Martha Drake [email or web address]] 1.2.840. 114 [id number] Univers 19:14:00 18:15:00 Encounter Aida Shah [id number] ity of [place] 4.2.7.2.686 [facility] [phone] [place] 081 Branch 2021-05-17 2021-05-17 Letter PcpROBERT 1.2.840.114 [id number] Univers 00:00:00 00:00:00 (Out) Patient ASHLEIGH [id number] [facility] 4.2.7.2.686 [place] Have A [id number] [place] 019 Branch 2021-04-25 2021-04-25 Emergency Cece, TRAUMA [id number] Univers 10:43:00 17:38:00 [facility] [id number] i ty of [facility] 4.2.7.2.686 [facility] [phone] [place] 014 Branch 2020-06-26 2020-06-26 Emergency [facility] [id number] 03:50:00 06:45:00 Martha Ramsey [id number] [place] 4.2.7.2.686 [place] [id number] [id number] 2020-06-26 2020-06-26 [facility] [id number] Univers 03:50:00 06:45:00 Martha Ramsey [id number] ity of [place] 4.2.7.2.686 [facility] [phone] [place] 084 Branch 2020-05-24 2020-05-24 [facility] [id number] 06:40:47 10:54:00 Charanjit Ramsey [id number] [place] 4.2.7.2.686 [place] [id number] 08 2020-05-24 2020-05-24 Emergency [facility] [id number] Univers 06:40:47 10:54:00 Charanjit Ramsey 350.1.13.10 i ty [facility] 4.2.7.2.[place] [phone] [address] 2020-03-29 2020-03-29 Letter Jamel Flores 1.2.840.114 [id number] 00:00:00 00:00:00 (Out) T Ashleigh 350.1.13.10 [facility] 4.2.7.2.686 [id number] [facility] 2020-03-29 2020-03-29 Letter Jamel Flores 1.2.840.114 [id number] Univers 00:00:00 00:00:00 (Out) T Ashleigh 350.1.13.10 it y of [facility] 4.2.7.2.686 [place] [phone] [address] 2020-03-26 2020-03-26 Transition Sharee George 1.2.840.114 [id number] 00:00:00 00:00:00 of Care Sherrell Grewal 350.1.13.10 [place] [id number] [facility] 2020-03-26 2020-03-26 Transition Sharee George 1.2.840.114 [id number] Univers 00:00:00 00:00:00 of Care Sherrell Grewal 350.1.13.10 it y of [place] 4.2.7.2.686 [place] [id number] [address] 2020-03-22 2020-03-23 Emergency Sallie Eckert 1.2.840. 114 [id number] Univers 18:02:47 21:55:00 Jamel Flores 350.1.13.10 ity [facility] 4.2.7.2.686 [place] [phone] [address] 2020-03-22 2020-03-23 Outpatient X JAMEL FLORES [facility] [id number] [facility] 18:02:47 21:55:00 ity [facility] 2020-03-21 2020-03-21 Emergency [facility] 1.2.840.114 [id number] Univers 15:02:08 17:16:00 Myles Ramsey 350.1.13.10 i ty of [place] 4.2.7.2.686 [facility] [id number] [address] 2020-03-21 2020-03-21 Emergency X KAMRYN, [facility] [[email or web address]] ERT [id number] Univers 15:02:08 17:16:00 MYLES ity of [facility] 2020-03-13 2020-03-13 Outpatient Raju_P MMG [id number] [id number] [place] 05:24:00 05:24:00 [facility] 2020-03-08 2020-03-08 Transition Sharee Cool 1.2.840.114 [id number] Univers 00:00:00 00:00:00 of Care Prema Grewal 350.1.13.10 i ty of [place] 4[place]2.7.2.[place] [phone] [address] 2020-03-04 2020-03-07 [facility] Charanjit Heck [facility] [[email or web address]] 1.2.840.1 [id number] Univers 18:01:05 18:00:00 Encounter Sarah Adorno 350.1.13.10 ity of [place] 4.2.7.2.686 [facility] [phone] [address] 2020-03-04 2020-03-07 Inpatient X JULIO CESAR [facility] [[email or web address]] ZEFERINO [id number] Univers 18:01:05 18:00:00 SARAH leon [facility] 2020-03-03 2020-03-03 Transition Sharee Silva 1.2.840.114 [id number] Univers 00:00:00 00:00:00 of Care Isatu Twan 350.1.13.10 it y of [place] 4.2.7.2.[place] [phone] [address] 2020-02-29 2020-03-02 [facility] Bobo Urrutia [facility] [[email or web address]] 1.2.840.11 [id number] Univers 16:53:09 12:18:00 Encounter Lulu Harris 350.1.13.10 ity of [place] 4[place]2.7.2.686 [place] [phone] [place] 051[address] [place] 2020-02-29 2020-03-02 Inpatient X STEVEN [facility] [[email or web address]] ZEFERINO [id number] Univers 16:53:09 12:18:00 LULU leon [facility] 2020-02-15 2020-02-[address] [facility] [id number] Univers 11:30:00 11:30:00 [facility] 2020-02-15 2020-02-15 [facility]ici [facility] 1.2.840.114 [id number] Univers 08:13:42 08:43:42 ne Visit Rosemary Ramsey 350.1.13.10 ity of [place] 4[place]2.7.2.[place] [phone] Co dical nal [address] Building 2020-01-18 2020-01-18 Transition Sharee Harvey 1.2.840.114 [id number] Univers 00:00:00 00:00:00 of Care Ana M Grewal 350.1.13.10 it y of [place] 4.2.7.2.686 [place] [phone] [place] 403 Branch 2020-01-15 2020-01-17 [facility] 1.2.840.1 [id number] Univers 22:33:37 16:58:00 Encounter Sarah Adorno 350.1.13.10 ity of [place] 4.2.7.2.686 [place] [id number] [place] 051121 [place] 2020-01-15 2020-01-17 Outpatient X JULIO CESAR [facility] [[email or web address]] ZEFERINO [id number] Univers 22:33:37 16:58:00 SARAH leon [facility] 2019-10-07 2019-10-07 [facility] [id number] Common 10:48:00 10:48:00 [facility] [address] [facility] 2019-10-05 2019-10-05 [facility] [id number] Common 16:06:00 16:06:00 [facility] 2019-07-27 2019-07-27 Refill Chava KSCESAR 1.2.840.114 [id number] Univers 00:00:00 00:00:00 Rosemary Ramsey 350.1.13.10 i ty [place].2.[place] [phone] Co dical [facility] 220 Branch [facility] 2019-07-12 2019-07-12 Outpatient [facility] [id number] Common 16:24:00 16:24:00 [facility] 2019-07-12 2019-07-12 Orders Doctor ROBERT 1.2.840.114 [id number] Univers 00:00:00 00:00:00 Only Unassigned, ASHLEIGH 350.1.13.10 ity of Vaughn [facility] 4.2.7.2.686 [place] [phone] [place] 009 Branch 2019-07-06 2019-07-06 Outpatient [facility] [id number] Common 14:00:00 14:00:00 [facility] Results Test Description Test Time Test Comments Results Result Comments Source SARS-CoV-2 (COVID-19) RNA [Presence] in Respiratory sp ecimen by 2021-12-20 07:04:48 ERI with probe detection Test Item Value Reference Range Interpretation Comme nts SARS-CoV-2 (COVID-19) RNA [Presence] in Respiratory Not detected No t-Detected specimen by ERI with probe detection (test code = 36405-8) 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 (test code = 12345-9) Whether the patient has symptoms related to condition of interest (test code = 34053-4) Patient was hospitalized because of this condition (test code = 46560-5) Whether the patient was admitted to intensive care unit (ICU) for condition of interest (test code = 59713-5) Whether patient resides in a congregate care setting (test code = 47358-8) POCT GLUCOSE (AUTOMATED)2021-11-02 22:57:12 Test Item Value Reference Range Interpretation Comments POCT GLU (test code = 7200609760) 224 mg/dL 70-110 H Lab Interpretation (test code = Abnormal 93627-2) [facility] LEAD ROUTINE [id number] 22:37:57 Test Item Value Reference Range Interpretation Comments Lab Interpretation (test code = Abnormal 62886-3) [facility] GLUCOSE (AUTOMATED)2021-11-02 17:43:02 Test Item Value Reference Range Interpretation Comments POCT GLU (test code = 2371299232) 264 mg/dL 70-110 H Lab Interpretation (test code = Abnormal 86046-7) [facility] [id number] 15:07:47 Test Item Value Reference Interpretation Comments Range TROPONIN I (test 0.064 ng/mL See_Comment H [Automated code = 0742200242) message] The system which generated this result [...] biotin. Lab Interpretation Abnormal (test code = 62892-9) [facility] [id number] 15:04:26 Test Item Value Reference Range Interpretation Comments NT-proBNP (test code 800 pg/mL See_Comment H [Autom ated = 1206352869) message] The system which generated this result transmitted reference range : <=450. The reference range was not used to interpret this result as normal/abnormal . ALYSSA (test code = ALYSSA) Biotin has been reported to cause a negative bias, interpret results relative to patient's use of biotin. Lab Interpretation Abnormal (test code = 12281-7) [facility] GLUCOSE (AUTOMATED)2021-11-02 13:36:38 Test Item Value Reference Range Interpretation Comments POCT GLU (test code = 5397245116) 185 mg/dL 70-110 H Lab Interpretation (test code = Abnormal 25821-5) [facility] METABOLIC PANEL (NA, K, CL, CO2, GLUCOSE, BUN, CREATININE, CA)2021-11-02 10:26:43 Test Item Value Reference Range Interpretation Comments NA (test code = 136 mmol/L 135-145 6215652826) K (test code = 4.0 mmol/L 3.5-5.0 5578785850) CL (test code = 99 mmol/L 98-108 5747336638) CO2 TOTAL (test code = 27 mmol/L 23-31 7582380455) AGAP (test code = 2-16 1914930141) BUN (test code = 30 mg/dL 7-23 H 8804210389) GLUCOSE (test code = 165 mg/dL 70-110 H 3159567429) CREATININE (test code = 1.42 mg/dL 0.60-1.25 H 1612752471) CALCIUM (test code = 9.5 mg/dL 8.6-10.6 0327262054) eGFR (test code = mL/min/1.73m2 1875672727) ALYSSA (test code = ALYSSA) Association of [...] tests). Lab Interpretation Abnormal (test code = 22452-8) [facility] WITH [id number] 10:01:58 Test Item Value Reference Range Interpretation [...] RDW-SD (test code = 39.8 fL 38.5-51.6 51382-5) RDW-CV (test code = 11.5 % 12.1-15.4 L 788-0) PLT (test code = See_Comment [Automated 777-3) message] The sy stem which generated this result transmitted reference range : 150 - 328 10*3/ ?L. The reference r corey was not used to interpret this result as normal/abnormal . MPV (test code = 10.5 fL 9.8-13.0 43350-6) NRBC/100 WBC (test See_Comment [Automat ed code = 3793960800) message] The system which generated this result transmitted reference range : 0.0 - 10.0 /100 WBCs. The refer ence range was not u sed to interpret th is result as normal/abnormal . NRBC x10^3 (test code <0.01 See_Comment [Auto mated = 9393384872) message] The s ystem which generated this result transmitted reference range : 10*3/?L. The reference range was not used to interpret this result as normal/abnormal . GRAN MAT (NEUT) % 59.3 % (test code = 770-8) IMM GRAN % (test code 0.30 % = 2745273658) LYMPH % (test code = 25.0 % 736-9) MONO % (test code = 10.7 % 5905-5) EOS % (test code = 4.1 % 713-8) BASO % (test code = 0.6 % 706-2) GRAN MAT x10^3(ANC) 4.19 10*3/uL 1.99-6.95 (test code = 3169432707) IMM GRAN x10^3 (test <0.03 0.00-0.06 code = 9851782972) LYMPH x10^3 (test code 1.77 10*3/uL 1.09-3.23 = 731-0) MONO x10^3 (test code 0.76 10*3/uL 0.36-1.02 = 742-7) EOS x10^3 (test code = 0.29 10*3/uL 0.06-0.53 711-2) BASO x10^3 (test code 0.04 10*3/uL 0.01-0.09 = 704-7) Lab Interpretation Abnormal (test code = 17625-1) [facility] GLUCOSE (AUTOMATED)2021-11-02 01:29:56 Test Item Value Reference Range Interpretation Comments POCT GLU (test code = 3443503358) 167 mg/dL 70-110 H Lab Interpretation (test code = Abnormal 67794-5) [facility] GLUCOSE (AUTOMATED)2021-11-01 17:40:19 Test Item Value Reference Range Interpretation Comments POCT GLU (test code = 1143231948) 193 mg/dL 70-110 H Lab Interpretation (test code = Abnormal 64711-1) [facility] GLUCOSE (AUTOMATED)2021-11-01 13:44:28 Test Item Value Reference Range Interpretation Comments POCT GLU (test code = 9391640899) 200 mg/dL 70-110 H Lab Interpretation (test code = Abnormal 71415-0) [facility] GLUCOSE (AUTOMATED)2021-11-01 01:38:43 Test Item Value Reference Range Interpretation Comments POCT GLU (test code = 1333192335) 177 mg/dL 70-110 H Lab Interpretation (test code = Abnormal 75633-5) [facility] GLUCOSE (AUTOMATED)2021-10-31 22:39:43 Test Item Value Reference Range Interpretation Comments POCT GLU (test code = 7457324052) 174 mg/dL 70-110 H Lab Interpretation (test code = Abnormal 50110-0) [facility] GLUCOSE (AUTOMATED)2021-10-31 17:40:22 Test Item Value Reference Range Interpretation Comments POCT GLU (test code = 2960015097) 224 mg/dL 70-110 H Lab Interpretation (test code = Abnormal 79133-5) [facility] [id number] 17:14:58 Test Item Value Reference Interpretation Comments Range TROPONIN I (test 0.080 ng/mL See_Comment H [Automated code = 8966547886) message] The system which generated this result [...] biotin. Lab Interpretation Abnormal (test code = 67866-7) [facility] [id number] 15:14:03 Test Item Value Reference Range Interpretation Comments NT-proBNP (test code 474 pg/mL See_Comment H [Autom ated = 7452792650) message] The system which generated this result transmitted reference range : <=450. The reference range was not used to interpret this result as normal/abnormal . ALYSSA (test code = ALYSSA) Biotin has been reported to cause a negative bias, interpret results relative to patient's use of biotin. Lab Interpretation Abnormal (test code = 99286-3) [facility] HospitalLIPID PANEL (60747)(TOTAL CHOLESTEROL, TRIGLYCERIDES, HDL)2021-10-31 15:05:19 Test Item Value Reference Range Interpretation Comments CHOL (test code = 101 mg/dL 120-200 L 6002638703) HDL (test code = 36 mg/dL >40 L 3847211078) HDLC RATIO (test code = See_Comment [Au tomated message] 2850474528) The system Signifyd generated this result transmit diamante reference range : <=5.0. The refe rence range was not u sed to interpret th is result as normal/abnormal . TRIG (test code = 143 mg/dL 30-170 9356638013) LDL CHOL (test code = 36 mg/dL See_Comment [Auto mated message] 40673-7) The system Signifyd generated this result transmit diamante reference range : <=160. The refe rence range was not u sed to interpret th is result as normal/abnormal . VLDL (test code = 29 mg/dL 5-60 0955024951) Lab Interpretation (test Abnormal code = 70830-6) [facility]2021-10-31 13:44:00 Test Item Value Reference Range Interpretation Comments POCT GLU (test code = 6636769109) 150 mg/dL 70-110 H Lab Interpretation (test code = Abnormal 75025-3) [facility]CBC with [id number] 11:13:14 Test Item Value Reference Range Interpretation [...] RDW-SD (test code = 39.9 fL 38.5-51.6 69491-8) RDW-CV (test code = 11.8 % 12.1-15.4 L 788-0) PLT (test code = See_Comment [Automated 777-3) message] The sy stem which generated this result transmitted reference range : 150 - 328 10*3/ ?L. The reference r corey was not used to interpret this result as normal/abnormal . MPV (test code = 11.0 fL 9.8-13.0 95763-3) NRBC/100 WBC (test See_Comment [Automat ed code = 9075536576) message] The system which generated this result transmitted reference range : 0.0 - 10.0 /100 WBCs. The refer ence range was not u sed to interpret th is result as normal/abnormal . NRBC x10^3 (test code <0.01 See_Comment [Auto mated = 2528646236) message] The s ystem which generated this result transmitted reference range : 10*3/?L. The reference range was not used to interpret this result as normal/abnormal . GRAN MAT (NEUT) % 64.3 % (test code = 770-8) IMM GRAN % (test code 0.30 % = 6332488572) LYMPH % (test code = 21.7 % 736-9) MONO % (test code = 10.0 % 5905-5) EOS % (test code = 3.1 % 713-8) BASO % (test code = 0.6 % 706-2) GRAN MAT x10^3(ANC) 4.35 10*3/uL 1.99-6.95 (test code = 5704344233) IMM GRAN x10^3 (test <0.03 0.00-0.06 code = 3400983598) LYMPH x10^3 (test code 1.47 10*3/uL 1.09-3.23 = 731-0) MONO x10^3 (test code 0.68 10*3/uL 0.36-1.02 = 742-7) EOS x10^3 (test code = 0.21 10*3/uL 0.06-0.53 711-2) BASO x10^3 (test code 0.04 10*3/uL 0.01-0.09 = 704-7) Lab Interpretation Abnormal (test code = 39165-5) [id number] 11:09:53 Test Item Value Reference Interpretation Comments Range TROPONIN I (test 0.101 ng/mL See_Comment H [Automated code = 5271957557) message] The system which generated this result [...] biotin. Lab Interpretation Abnormal (test code = 92721-8) [facility] Metabolic Panel (NA, K, CL, CO2, GLUCOSE, BUN, CREATININE, CA)2021-10-31 10:59:31 Test Item Value Reference Range Interpretation Comments NA (test code = 139 mmol/L 135-145 0590848934) K (test code = 4.1 mmol/L 3.5-5.0 8192351957) CL (test code = 103 mmol/L 98-108 5602867781) CO2 TOTAL (test code = 28 mmol/L 23-31 1007099473) AGAP (test code = 2-16 1188857284) BUN (test code = 43 mg/dL 7-23 H 1305392510) GLUCOSE (test code = 165 mg/dL 70-110 H 1706263308) CREATININE (test code = 1.68 mg/dL 0.60-1.25 H 8990859571) CALCIUM (test code = 9.6 mg/dL 8.6-10.6 4188876986) eGFR (test code = mL/min/1.73m2 2245967538) ALYSSA (test code = ALYSSA) Association of [...] tests). Lab Interpretation Abnormal (test code = 89680-2) [facility] HospitalGlycosylated Hemoglobin (A1C)2021-10-31 09:13:40 Test Item Value Reference Range Interpretation Comments HGB A1C (test code = 6.8 % 4.0-5.7 H 4548-4) ALYSSA (test code = ALYSSA) Reference RangesNormal: <5.7%Prediabetes: 5.7 - 6.4%Diabetes: > 6.5% Lab Interpretation (test Abnormal code = 14557-2) [facility] [id number] 06:48:18 Test Item Value Reference Interpretation Comments Range TROPONIN I (test 0.082 ng/mL See_Comment H [Automated code = 4289429809) message] The system which generated this result [...] biotin. Lab Interpretation Abnormal (test code = 99866-2) [facility] [id number] 02:09:48 Test Item Value Reference Interpretation Comments Range TROPONIN I (test 0.067 ng/mL See_Comment H [Automated code = 2973955016) message] The system which generated this result [...] biotin. Lab Interpretation Abnormal (test code = 13421-0) [facility]N-[facility]MINAL [id number] 02:06:31 Test Item Value Reference Range Interpretation Comments NT-proBNP (test code 318 pg/mL See_Comment [Autom ated = 0080105087) message] The system which generated this result transmitted reference range : <=450. The reference range was not used to interpret this result as normal/abnormal . ALYSSA (test code = ALYSSA) Biotin has been reported to cause a negative bias, interpret results relative to patient's use of biotin. Lab Interpretation Normal (test code = 04444-4) [facility] HospitalCOMP. METABOLIC PANEL (05467)2021-10-31 01:58:28 Test Item Value Reference Range Interpretation Comments NA (test code = 137 mmol/L 135-145 7953578700) K (test code = 4.1 mmol/L 3.5-5.0 0525186916) CL (test code = 101 mmol/L 98-108 2200695160) CO2 TOTAL (test code = 26 mmol/L 23-31 8263319340) AGAP (test code = 2-16 2663097211) BUN (test code = 46 mg/dL 7-23 H 7757408182) GLUCOSE (test code = 213 mg/dL 70-110 H 4305711499) CREATININE (test code = 1.96 mg/dL 0.60-1.25 H 5750155971) TOTAL BILI (test code = 0.9 mg/dL 0.1-1.9 3762248846) CALCIUM (test code = 9.7 mg/dL 8.6-10.6 2043341131) T PROTEIN (test code = 7.0 g/dL 6.3-8.2 1332979762) ALBUMIN (test code = 4.3 g/dL 3.5-5.0 0638378013) ALK PHOS (test code = 58 U/L 34-122 1177753857) ALTv (test code = 20 U/L 5-50 1742-6) AST(SGOT) (test code = 27 U/L 13-40 0991878988) eGFR (test code = mL/min/1.73m2 7395155105) ALYSSA (test code = ALYSSA) Association of [...] tests). Lab Interpretation Abnormal (test code = 07737-8) [facility] HospitalLIPASE, [id number] 01:57:48 Test Item Value Reference Range Interpretation Comments LIPASE (test code = 0497068607) 330 U/L 0-220 H Lab Interpretation (test code = Abnormal 83604-3) [facility] HospitalaPTT2021-12-16 01:55:04 Test Item Value Reference Range Interpretation Comments APTT Patient (test See_Comment [Automat ed code = 3173-2) message] The system which generated this result transmitted reference range : 23 - 38 Seconds . The reference range was not used to interpr et this result as normal/abnormal . ALYSSA (test code = ALYSSA) The [email or web address]] patient population mean normal value for aPTT is 30 seconds. Lab Interpretation Normal (test code = 07099-0) [facility] HospitalPROTHROMBIN TIME / [id number] 01:53:08 Test Item Value Reference Range Interpretation [...] tions. Lab Interpretation (test Normal code = 16853-9) [facility] HospitalCB WITH [id number] 01:45:44 Test Item Value Reference Range Interpretation [...] RDW-SD (test code = 39.1 fL 38.5-51.6 06754-1) RDW-CV (test code = 11.6 % 12.1-15.4 L 788-0) PLT (test code = See_Comment [Automated 777-3) message] The sy stem which generated this result transmitted reference range : 150 - 328 10*3/ ?L. The reference r corey was not used to interpret this result as normal/abnormal . MPV (test code = 10.4 fL 9.8-13.0 55177-1) NRBC/100 WBC (test See_Comment [Automat ed code = 1561283500) message] The system which generated this result transmitted reference range : 0.0 - 10.0 /100 WBCs. The refer ence range was not u sed to interpret th is result as normal/abnormal . NRBC x10^3 (test code <0.01 See_Comment [Auto mated = 6339850662) message] The s ystem which generated this result transmitted reference range : 10*3/?L. The reference range was not used to interpret this result as normal/abnormal . GRAN MAT (NEUT) % 62.1 % (test code = 770-8) IMM GRAN % (test code 0.30 % = 4296363192) LYMPH % (test code = 23.4 % 736-9) MONO % (test code = 10.8 % 5905-5) EOS % (test code = 2.9 % 713-8) BASO % (test code = 0.5 % 706-2) GRAN MAT x10^3(ANC) 4.14 10*3/uL 1.99-6.95 (test code = 5788666981) IMM GRAN x10^3 (test <0.03 0.00-0.06 code = 8746764293) LYMPH x10^3 (test code 1.56 10*3/uL 1.09-3.23 = 731-0) MONO x10^3 (test code 0.72 10*3/uL 0.36-1.02 = 742-7) EOS x10^3 (test code = 0.19 10*3/uL 0.06-0.53 711-2) BASO x10^3 (test code 0.03 10*3/uL 0.01-0.09 = 704-7) Lab Interpretation Abnormal (test code = 02427-3) [facility]URINALYSIS2021-06-10 21:15:48 Test Item Value Reference Range Interpretation Comments APPEARANCE (test code = Clear Clear 8147280772) COLOR (test code = Yellow Yellow 7503328482) PH (test code = 4.8-8.0 0492751023) SP GRAVITY (test code = 1.003-1.030 3450779252) GLU U QUAL (test code = 50 mg/dL Normal A 8404606740) BLOOD (test code = Negative Negative INTERFERE NCE FROM 0348677989) ASCORBIC ACID M AY CAUSE FALSE NEG ATIVE RESULT KETONES (test code = Negative Negative 8325404927) PROTEIN (test code = Negative Negative 2887-8) UROBILIN (test code = Normal Normal 2957067975) BILIRUBIN (test code = Negative Negative 3668938170) NITRITE (test code = Negative Negative 1838445919) LEUK JESS (test code = Negative Negative 9443335793) RBC/HPF (test code = See_Comment [Autom ated message] 0299865637) The system Signifyd generated this result transmitted ref erence range: 0 - 3 HP F. The reference range was not used to int erpret this result as normal/abnormal . WBC/HPF (test code = See_Comment [Autom ated message] 7797837248) The system Signifyd generated this result transmitted ref erence range: 0 - 5 HP F. The reference range was not used to int erpret this result as normal/abnormal . BACTERIA (test code = Negative Negative 0063666077) SQ EPITH (test code = <1 See_Comment [Auto mated message] 7566201738) The system Signifyd generated this result transmitted ref erence range: <=2 HPF. The reference range was not used to int erpret this result as normal/abnormal . HYAL CAST (test code = See_Comment [Aut omated message] 8986778591) The system Signifyd generated this result transmitted ref erence range: <=2 LPF. The reference range was not used to int erpret this result as normal/abnormal . Lab Interpretation (test Abnormal code = 72227-5) [facility] HospitalXR LUMBAR SPINE 2 [id number] 20:30:53 Impression: Postoperative changes. Degenerative changes. No [...] acute bony abnormality identified.End of Report.RL: 3901 [facility] HospitalXR HIPS 2 VW [id number] 20:24:52Impression: Postoperative changes. Degenerative changes. No acute [...] is available.End of Report.RL: [facility] (NA, K, CL, CO2, GLUCOSE, BUN, CREATININE, CA)2020-05-24 14:15:00 Test Item Value Reference Range Interpretation Comments NA (test code = 139 mmol/L 135-145 7282797909) K (test code = 4.1 mmol/L 3.5-5 7246553525) CL (test code = 104 mmol/L 98-108 4265953531) CO2 TOTAL (test code = 26 mmol/L 23-31 7096348489) AGAP (test code = 2-16 1395183811) BUN (test code = 22 mg/dL 7-23 8925978688) GLUCOSE (test code = 203 mg/dL 70-110 H 2674782552) CREATININE (test code = 1.40 mg/dL 0.6-1.25 H 6863626734) CALCIUM (test code = 9.1 mg/dL 8.6-10.6 2468254519) eGFR Calculation mL/min/1.73m2 (Non-) (test code = 6248306404) eGFR Calculation mL/min/1.73m2 () (test code = 2613181742) ALYSSA (test code = ALYSSA) Association of [...] tests). Lab Interpretation Abnormal (test code = 94479-5) [facility] HospitalHepatic Function Panel (ALB, T.PRO, BILI T, BU/BC, ALT, AST, ALK PHOS)2020-05-24 13:54:00 Test Item Value Reference Range Interpretation Comments TOTAL BILI (test code = 9240464450) 0.9 mg/dL 0.1-1.1 BILI UNCON (test code = 3998341235) 1.0 mg/dL 0.1-1.1 BILI CONJ (test code = 3296874325) 0.0 mg/dL 0-0.3 T PROTEIN (test code = 6880255944) 7.0 g/dL 6.3-8.2 ALBUMIN (test code = 3450848054) 4.2 g/dL 3.5-5 ALK PHOS (test code = 1282515272) 49 U/L 34-122 ALTv (test code = 1742-6) 17 U/L 5-50 AST(SGOT) (test code = 4412305289) 25 U/L 13-40 Lab Interpretation (test code = Normal 32102-4) [facility]aPTT2020-07-09 13:32:00 Test Item Value Reference Range Interpretation Comments APTT Patient (test See_Comment [Automat ed code = 3173-2) message] The system which generated this result transmitted reference range : 23 - 38 Seconds . The reference range was not used to interpr et this result as normal/abnormal . ALYSSA (test code = ALYSSA) The [facility] [[email or web address]] patient population mean normal value for aPTT is 30 seconds. Lab Interpretation Normal (test code = 86576-9) [facility] HospitalProthrombin Time (PT) / [id number] 13:30:00 Test Item Value Reference Range Interpretation [...] tions. Lab Interpretation (test Normal code = 21671-3) [facility] HospitalCBC WITH [id number] 13:27:00 Test Item Value Reference Range Interpretation Comments WBC (test code = See_Comment [Automated 8690-2) message] The sy stem which generated this [...] RDW-SD (test code = 42.6 fL 38.5-51.6 27095-2) RDW-CV (test code = 12.3 % 12.1-15.4 788-0) PLT (test code = See_Comment [Automated 777-3) message] The sy stem which generated this result transmitted reference range : 150 - 328 10*3/ ?L. The reference r corey was not used to interpret this result as normal/abnormal . MPV (test code = 9.9 fL 9.8-13 26354-6) NRBC/100 WBC (test See_Comment [Automat ed code = 0038250768) message] The system which generated this result transmitted reference range : 0.0 - 10.0 /100 WBCs. The refer ence range was not u sed to interpret th is result as normal/abnormal . NRBC x10^3 (test code <0.01 See_Comment [Auto mated = 2157310633) message] The s ystem which generated this result transmitted reference range : 10*3/?L. The reference range was not used to interpret this result as normal/abnormal . GRAN MAT (NEUT) % 55.1 % (test code = 770-8) IMM GRAN % (test code 0.20 % = 0709326151) LYMPH % (test code = 28.8 % 736-9) MONO % (test code = 11.3 % 5905-5) EOS % (test code = 3.5 % 713-8) BASO % (test code = 1.1 % 706-2) GRAN MAT x10^3(ANC) 3.11 10*3/uL 1.99-6.95 (test code = 5392245115) IMM GRAN x10^3 (test <0.03 0-0.06 code = 2755617590) LYMPH x10^3 (test code 1.63 10*3/uL 1.09-3.23 = 731-0) MONO x10^3 (test code 0.64 10*3/uL 0.36-1.02 = 742-7) EOS x10^3 (test code = 0.20 10*3/uL 0.06-0.53 711-2) BASO x10^3 (test code 0.06 10*3/uL 0.01-0.09 = 704-7) Lab Interpretation Abnormal (test code = 87229-6) [facility]XR [facility]LE 3+ VW [id number] 13:25:58HISTORY: ?Pain. FINDINGS: AP, lateral, oblique views [...] No acute fracture or dislocation in left ankle.[facility] GLUCOSE (AUTOMATED)2020-03-23 22:34:00 Test Item Value Reference Range Interpretation Comments POCT GLU (test code = 1493589347) 173 mg/dL 70-110 H Lab Interpretation (test code = Abnormal 44244-5) [facility] GLUCOSE (AUTOMATED)2020-03-23 22:34:00 Test Item Value Reference Range Interpretation Comments POCT GLU (test code = 1675385130) 173 mg/dL 70-110 H Lab Interpretation (test code = Abnormal 62110-8) [facility] GLUCOSE (AUTOMATED)2020-03-23 18:12:00 Test Item Value Reference Range Interpretation Comments POCT GLU (test code = 165 mg/dL 70-110 H Notifi ed Provider [id number]) Lab Interpretation (test Abnormal code = 27025-8) [facility] GLUCOSE (AUTOMATED)2020-03-23 18:12:00 Test Item Value Reference Range Interpretation Comments POCT GLU (test code = 165 mg/dL 70-110 H Notifi ed Provider [id number]) Lab Interpretation (test Abnormal code = 31335-7) [facility] GLUCOSE (AUTOMATED)2020-03-23 15:04:00 Test Item Value Reference Range Interpretation Comments POCT GLU (test code = 114 mg/dL 70-110 H Notifi ed Provider [id number]) Lab Interpretation (test Abnormal code = 99231-1) [facility] GLUCOSE (AUTOMATED)2020-03-23 15:04:00 Test Item Value Reference Range Interpretation Comments POCT GLU (test code = 114 mg/dL 70-110 H Notifi ed Provider [id number]) Lab Interpretation (test Abnormal code = 08102-7) [facility] HospitalFERRITIN [id number] 13:23:00 Test Item Value Reference Range Interpretation Comments FERRITIN (test code = 139.0 ng/mL 18-464 8517468675) ALYSSA (test code = ALYSSA) Biotin has been reported to cause a negative bias, interpret results relative to patient's use of biotin. Lab Interpretation (test Normal code = 03294-6) [facility] HospitalFERRITIN [id number] 13:23:00 Test Item Value Reference Range Interpretation Comments FERRITIN (test code = 139.0 ng/mL 18-464 5585471613) ALYSSA (test code = ALYSSA) Biotin has been reported to cause a negative bias, interpret results relative to patient's use of biotin. Lab Interpretation (test Normal code = 55247-7) [facility] [id number] 12:53:00 Test Item Value Reference Range Interpretation Comments IRON (test code = 6650548984) 87 ug/dL 50-160 TIBC (test code = 3188516551) 385 ug/dL 250-410 % FE SAT (test code = 2501780990) 23 % 20-50 Lab Interpretation (test code = Normal 35131-8) [facility] [id number] 12:53:00 Test Item Value Reference Range Interpretation Comments IRON (test code = 9910192627) 87 ug/dL 50-160 TIBC (test code = 3403835620) 385 ug/dL 250-410 % FE SAT (test code = 0212773073) 23 % 20-50 Lab Interpretation (test code = Normal 57672-3) [facility]aPTT2020-05-08 12:07:00 Test Item Value Reference Range Interpretation Comments APTT Patient (test code See_Comment [Au tomated message] = 3173-2) The system Signifyd generated this result transmitted ref erence range: 26 - 36 Seconds. The reference range was not used to int erpret this result as normal/abnormal . Lab Interpretation (test Abnormal code = 71275-2) [facility]:07[facility]00 Test Item Value Reference Range Interpretation Comments APTT Patient (test code See_Comment [Au tomated message] = 3173-2) The system [employer] generated this result transmitted ref erence range: 26 - 36 Seconds. The reference range was not used to int erpret this result as normal/abnormal . Lab Interpretation (test Abnormal code = 26421-8) [id number] 11:57:00 Test Item Value Reference Range Interpretation Comments TROPONIN I (test 0.046 ng/mL See_Comment H [Automated code = 2935429846) message] The system which generated this result [...] ? Lab Interpretation Abnormal (test code = 68999-8) [facility] [id number] 11:57:00 Test Item Value Reference Range Interpretation Comments TROPONIN I (test 0.046 ng/mL See_Comment H [Automated code = 9726002641) message] The system which generated this result [...] ? Lab Interpretation Abnormal (test code = 96348-5) [facility] (NA, K, CL, CO2, GLUCOSE, BUN, CREATININE, CA)2020-03-23 11:52:00 Test Item Value Reference Range Interpretation Comments NA (test code = 137 mmol/L 135-145 0885317361) K (test code = 4.1 mmol/L 3.5-5 8554827889) CL (test code = 102 mmol/L 98-108 8991457067) CO2 TOTAL (test code = 26 mmol/L 23-31 3407641238) AGAP (test code = 2-16 1822341223) BUN (test code = 18 mg/dL 7-23 9922073871) GLUCOSE (test code = 119 mg/dL 70-110 H 9122437837) CREATININE (test code = 1.14 mg/dL 0.6-1.25 7627699869) CALCIUM (test code = 9.1 mg/dL 8.6-10.6 4073440144) eGFR Calculation mL/min/1.73m2 (Non-) (test code = 5417592936) eGFR Calculation mL/min/1.73m2 () (test code = 7065796059) ALYSSA (test code = ALYSSA) Association of [...] tests). Lab Interpretation Abnormal (test code = 88212-1) [facility]2020-[facility] 11:52:00 Test Item Value Reference Range Interpretation Comments MAGNESIUM (test code = 1877670948) 2.2 mg/dL 1.7-2.4 Lab Interpretation (test code = Normal 06402-5) [facility] (NA, K, CL, CO2, GLUCOSE, BUN, CREATININE, CA)2020-03-23 11:52:00 Test Item Value Reference Range Interpretation Comments NA (test code = 137 mmol/L 135-145 4606878352) K (test code = 4.1 mmol/L 3.5-5 9316525937) CL (test code = 102 mmol/L 98-108 7425646829) CO2 TOTAL (test code = 26 mmol/L 23-31 0015261771) AGAP (test code = 2-16 7588677012) BUN (test code = 18 mg/dL 7-23 5036025803) GLUCOSE (test code = 119 mg/dL 70-110 H 3858996878) CREATININE (test code = 1.14 mg/dL 0.6-1.25 1341546151) CALCIUM (test code = 9.1 mg/dL 8.6-10.6 9185593688) eGFR Calculation mL/min/1.73m2 (Non-) (test code = 5624352148) eGFR Calculation mL/min/1.73m2 () (test code = 5432445452) ALYSSA (test code = ALYSSA) Association of [...] tests). Lab Interpretation Abnormal (test code = 09136-4) [facility]2020-[facility]-08 11:52:00 Test Item Value Reference Range Interpretation Comments MAGNESIUM (test code = 7761262583) 2.2 mg/dL 1.7-2.4 Lab Interpretation (test code = Normal 27041-4) [facility] HospitalProthrombin Time (PT) / [id number] 11:36:00 Test Item Value Reference Range Interpretation Comments PROTIME PATIENT (test See_Comment [Auto mated message] code = 5964-2) The system [employer] generated this result transmitted ref erence range: 10.1 - 1 2.6 Seconds. The re ference range was not u sed to interpret this result as normal/abnor mal. INR (test code = 6301-6) Nor mal INR <1.1; Warfarin Therap eutic range 2.0 to 3. 0 or 2.5 to 3.5, dep ending upon the indica tions. Lab Interpretation (test Normal code = 75087-6) [facility] HospitalProthrombin Time (PT) / [id number] 11:36:00 Test Item Value Reference Range Interpretation Comments PROTIME PATIENT (test See_Comment [Auto mated message] code = 5964-2) The system [employer] generated this result transmitted ref erence range: 10.1 - 1 2.6 Seconds. The re ference range was not u sed to interpret this result as normal/abnor mal. INR (test code = 6301-6) Nor mal INR <1.1; Warfarin Therap eutic range 2.0 to 3. 0 or 2.5 to 3.5, dep ending upon the indica tions. Lab Interpretation (test Normal code = 25244-6) [facility]TR[facility] [id number] 06:38:00 Test Item Value Reference Range Interpretation Comments TROPONIN I (test 0.045 ng/mL See_Comment H [Automated code = 9039810278) message] The system which generated this result [...] ? Lab Interpretation Abnormal (test code = 71989-7) [facility] HospitalKARINFORMERLY [facility] [id number] 06:38:00 Test Item Value Reference Range Interpretation Comments TROPONIN I (test 0.045 ng/mL See_Comment H [Automated code = 1406523216) message] The system which generated this result [...] ? Lab Interpretation Abnormal (test code = 23167-0) [facility] (NA, K, CL, CO2, GLUCOSE, BUN, CREATININE, CA)2020-03-23 06:29:00 Test Item Value Reference Range Interpretation Comments NA (test code = 137 mmol/L 135-145 1292712785) K (test code = 3.6 mmol/L 3.5-5 5634987560) CL (test code = 101 mmol/L 98-108 2070975748) CO2 TOTAL (test code = 27 mmol/L 23-31 4724100145) AGAP (test code = 2-16 2649537391) BUN (test code = 19 mg/dL 7-23 6961204872) GLUCOSE (test code = 153 mg/dL 70-110 H 8752471521) CREATININE (test code = 1.22 mg/dL 0.6-1.25 3188604785) CALCIUM (test code = 8.9 mg/dL 8.6-10.6 9621170153) eGFR Calculation mL/min/1.73m2 (Non-) (test code = 2957461976) eGFR Calculation mL/min/1.73m2 () (test code = 3907188536) ALYSSA (test code = ALYSSA) Association of [...] tests). Lab Interpretation Abnormal (test code = 92466-6) [facility]2020-05-08 06:29:00 Test Item Value Reference Range Interpretation Comments MAGNESIUM (test code = 0552071885) 1.7 mg/dL 1.7-2.4 Lab Interpretation (test code = Normal 70535-5) [facility] HospitalLIPID PANEL (63368)(TOTAL CHOLESTEROL, TRIGLYCERIDES, HDL)2020-03-23 06:29:00 Test Item Value Reference Range Interpretation Comments CHOL (test code = 106 mg/dL 120-200 L 0243697755) HDL (test code = 46 mg/dL >40 0246253564) HDLC RATIO (test code = See_Comment [Au tomated message] 1841709450) The system Signify[employer] generated this result transmit diamante reference range : <=5.0. The refe rence range was not u sed to interpret th is result as normal/abnormal . TRIG (test code = 74 mg/dL 30-170 7330480633) LDL CHOL (test code = 45 mg/dL See_Comment [Auto mated message] 71607-7) The system Sign[employer] generated this result transmit diamante reference range : <=160. The refe rence range was not u sed to interpret th is result as normal/abnormal . VLDL (test code = 15 mg/dL 5-60 9104134880) Lab Interpretation (test Abnormal code = 65370-6) [facility] (NA, K, CL, CO2, GLUCOSE, BUN, CREATININE, CA)2020-03-23 06:29:00 Test Item Value Reference Range Interpretation Comments NA (test code = 137 mmol/L 135-145 9517805607) K (test code = 3.6 mmol/L 3.5-5 7982427883) CL (test code = 101 mmol/L 98-108 2680882119) CO2 TOTAL (test code = 27 mmol/L 23-31 2433653788) AGAP (test code = 2-16 8051632046) BUN (test code = 19 mg/dL 7-23 1273536990) GLUCOSE (test code = 153 mg/dL 70-110 H 5081273406) CREATININE (test code = 1.22 mg/dL 0.6-1.25 9554603095) CALCIUM (test code = 8.9 mg/dL 8.6-10.6 0671346092) eGFR Calculation mL/min/1.73m2 (Non-) (test code = 3476327551) eGFR Calculation mL/min/1.73m2 () (test code = 6263169830) ALYSSA (test code = ALYSSA) Association of [...] tests). Lab Interpretation Abnormal (test code = 44438-0) [facility]2020-05-08 06:29:00 Test Item Value Reference Range Interpretation Comments MAGNESIUM (test code = 6734250725) 1.7 mg/dL 1.7-2.4 Lab Interpretation (test code = Normal 53502-3) [facility] HospitalLIPID PANEL (50916)(TOTAL CHOLESTEROL, TRIGLYCERIDES, HDL)2020-03-23 06:29:00 Test Item Value Reference Range Interpretation Comments CHOL (test code = 106 mg/dL 120-200 L 7040165234) HDL (test code = 46 mg/dL >40 1460325942) HDLC RATIO (test code = See_Comment [Au tomated message] 3072176566) The system Sign[employer] generated this result transmit diamante reference range : <=5.0. The refe rence range was not u sed to interpret th is result as normal/abnormal . TRIG (test code = 74 mg/dL 30-170 6239958032) LDL CHOL (test code = 45 mg/dL See_Comment [Auto mated message] 00266-9) The system Sign[employer] generated this result transmit diamante reference range : <=160. The refe rence range was not u sed to interpret th is result as normal/abnormal . VLDL (test code = 15 mg/dL 5-60 8413429579) Lab Interpretation (test Abnormal code = 58573-4) [facility]aP[facility]2020-[facility] 03:18:00 Test Item Value Reference Range Interpretation Comments APTT Patient (test code = See_Comment [ Automated message] 3173-2) The system [employer] generated this result transmitted ref erence range: 26 - 36 Seconds. The re ference range was not u sed to interpret this result as normal/abnor mal. Lab Interpretation (test Normal code = 12914-8) [facility]aPTT2020-05-08 03:18:00 Test Item Value Reference Range Interpretation Comments APTT Patient (test code = See_Comment [ Automated message] 3173-2) The system [employer] generated this result transmitted ref erence range: 26 - 36 Seconds. The re ference range was not u sed to interpret this result as normal/abnor mal. Lab Interpretation (test Normal code = 15683-6) [facility] HospitalPROTHROMBIN TIME / [id number] 03:07:00 Test Item Value Reference Range Interpretation Comments PROTIME PATIENT (test See_Comment [Auto mated message] code = 5964-2) The system [employer] generated this result transmitted ref erence range: 10.1 - 1 2.6 Seconds. The re ference range was not u sed to interpret this result as normal/abnor mal. INR (test code = 6301-6) Nor mal INR <1.1; Warfarin Therap eutic range 2.0 to 3. 0 or 2.5 to 3.5, dep ending upon the indica tions. Lab Interpretation (test Normal code = 66477-9) [facility] HospitalPROTHROMBIN TIME / [id number] 03:07:00 Test Item Value Reference Range Interpretation Comments PROTIME PATIENT (test See_Comment [Auto mated message] code = 5964-2) The system [employer] generated this result transmitted ref erence range: 10.1 - 1 2.6 Seconds. The re ference range was not u sed to interpret this result as normal/abnor mal. INR (test code = 6301-6) Nor mal INR <1.1; Warfarin Therap eutic range 2.0 to 3. 0 or 2.5 to 3.5, dep ending upon the indica tions. Lab Interpretation (test Normal code = 98335-2) [facility] HospitalXR CHEST 2 [id number] 02:23:32 No acute cardiopulmonary process. Preliminary Report [...] reviewed this study and agree with the abovereport.[facility] HospitalXR CHEST 2 [id number] 02:23:32 No acute cardiopulmonary process. Preliminary Report [...] is seen. Noacute bony abnormalities are noted. [facility], Radiant Results Inft User - 03/22/2020 [...] reviewed this study and agree with the abovereport.[facility] HospitalCORON[facility]IRUS COVID-19 [id number] 01:23:00 Test Item Value Reference Range Interpretation Comments SARS-CoV-2 (test code = Not Detected Not Detected 74430-5) ALYSSA (test code = ALYSSA) ID NOW COVID-19 Assay is an isothermal nucleic acid amplification test intended for the qualitative detection of nucleic acid from SARS-CoV-2 viral RNA in nasopharyngeal (PHLEBOTOMY SUPERVISOR) specimens. It is used under Emergency [...] indicated. Lab Interpretation Normal (test code = 83837-7) [facility]COR[facility]-19 [id number] 01:23:00 Test Item Value Reference Range Interpretation Comments SARS-CoV-2 (test code = Not Detected Not Detected 12084-6) ALYSSA (test code = ALYSSA) ID NOW COVID-19 Assay is an isothermal nucleic acid amplification test intended for the qualitative detection of nucleic acid from SARS-CoV-2 viral RNA in nasopharyngeal (PHLEBOTOMY SUPERVISOR) specimens. It is used under Emergency [...] indicated. Lab Interpretation Normal (test code = 79830-6) [facility] HospitalN-TERMINAL [id number] 00:12:00 Test Item Value Reference Range Interpretation Comments NT-proBNP (test code 585 pg/mL See_Comment H [Autom ated = 3478543954) message] The system which generated this result transmitted reference range : <=450. The reference range was not used to interpret this result as normal/abnormal . ALYSSA (test code = ALYSSA) Biotin has been reported to cause a negative bias, interpret results relative to patient's use of biotin. Lab Interpretation Abnormal (test code = 94761-3) [facility]TR[facility] [id number] 00:12:00 Test Item Value Reference Range Interpretation Comments TROPONIN I (test 0.030 ng/mL See_Comment [Automated code = 0802533594) message] The system which generated this result [...] ? Lab Interpretation Normal (test code = 97683-6) [facility] HospitalN-[facility]MINAL [id number] 00:12:00 Test Item Value Reference Range Interpretation Comments NT-proBNP (test code 585 pg/mL See_Comment H [Autom ated = 2970245469) message] The system which generated this result transmitted reference range : <=450. The reference range was not used to interpret this result as normal/abnormal . ALYSSA (test code = ALYSSA) Biotin has been reported to cause a negative bias, interpret results relative to patient's use of biotin. Lab Interpretation Abnormal (test code = 16180-3) [facility]TR[facility] [id number] 00:12:00 Test Item Value Reference Range Interpretation Comments TROPONIN I (test 0.030 ng/mL See_Comment [Automated code = 5430291778) message] The system which generated this result [...] ? Lab Interpretation Normal (test code = 71426-5) [facility]. METABOLIC PANEL (53025)2020-03-23 00:03:00 Test Item Value Reference Range Interpretation Comments NA (test code = 138 mmol/L 135-145 0527476427) K (test code = 4.1 mmol/L 3.5-5 5058340834) CL (test code = 103 mmol/L 98-108 5357849053) CO2 TOTAL (test code = 26 mmol/L 23-31 7934501755) AGAP (test code = 2-16 4164733019) BUN (test code = 18 mg/dL 7-23 5614499435) GLUCOSE (test code = 157 mg/dL 70-110 H 0365831483) CREATININE (test code = 1.19 mg/dL 0.6-1.25 2463426533) TOTAL BILI (test code = 1.1 mg/dL 0.1-1.9 5203764908) CALCIUM (test code = 9.2 mg/dL 8.6-10.6 7309877374) T PROTEIN (test code = 6.8 g/dL 6.3-8.2 7919559273) ALBUMIN (test code = 4.0 g/dL 3.5-5 7061781742) ALK PHOS (test code = 51 U/L 34-122 5725815154) ALTv (test code = 16 U/L 5-50 1742-6) AST(SGOT) (test code = 23 U/L 13-40 3025203510) eGFR Calculation mL/min/1.73m2 (Non-) (test code = 6356485619) eGFR Calculation mL/min/1.73m2 () (test code = 7781569364) ALYSSA (test code = ALYSSA) Association of [...] tests). Lab Interpretation Abnormal (test code = 97728-6) [facility] METABOLIC PANEL (02666)2020-03-23 00:03:00 Test Item Value Reference Range Interpretation Comments NA (test code = 138 mmol/L 135-145 9908448145) K (test code = 4.1 mmol/L 3.5-5 5292892784) CL (test code = 103 mmol/L 98-108 6265777885) CO2 TOTAL (test code = 26 mmol/L 23-31 3818862108) AGAP (test code = 2-16 3995032795) BUN (test code = 18 mg/dL 7-23 7778105943) GLUCOSE (test code = 157 mg/dL 70-110 H 3711093886) CREATININE (test code = 1.19 mg/dL 0.6-1.25 0621115101) TOTAL BILI (test code = 1.1 mg/dL 0.1-1.9 0355308330) CALCIUM (test code = 9.2 mg/dL 8.6-10.6 5674370481) T PROTEIN (test code = 6.8 g/dL 6.3-8.2 5176657777) ALBUMIN (test code = 4.0 g/dL 3.5-5 0069592147) ALK PHOS (test code = 51 U/L 34-122 0547328024) ALTv (test code = 16 U/L 5-50 1742-6) AST(SGOT) (test code = 23 U/L 13-40 1663452449) eGFR Calculation mL/min/1.73m2 (Non-) (test code = 6205774775) eGFR Calculation mL/min/1.73m2 () (test code = 6110570538) ALYSSA (test code = ALYSSA) Association of [...] tests). Lab Interpretation Abnormal (test code = 09372-5) [facility] WITH [id number] 23:57:00 Test Item Value Reference Range Interpretation [...] RDW-SD (test code = 49.6 fL 38.5-51.6 81858-9) RDW-CV (test code = 14.6 % 12.1-15.4 788-0) PLT (test code = See_Comment L [Automated 777-3) message] The sy stem which generated this result transmitted reference range : 150 - 328 10*3/ ?L. The reference r corey was not used to interpret this result as normal/abnormal . MPV (test code = 9.9 fL 9.8-13 43888-8) NRBC/100 WBC (test See_Comment [Automat ed code = 9303315431) message] The system which generated this result transmitted reference range : 0.0 - 10.0 /100 WBCs. The refer ence range was not u sed to interpret th is result as normal/abnormal . NRBC x10^3 (test code <0.01 See_Comment [Auto mated = 4564592464) message] The s ystem which generated this result transmitted reference range : 10*3/?L. The reference range was not used to interpret this result as normal/abnormal . GRAN MAT (NEUT) % 55.3 % (test code = 770-8) IMM GRAN % (test code 0.20 % = 6441857928) LYMPH % (test code = 28.3 % 736-9) MONO % (test code = 12.6 % 5905-5) EOS % (test code = 3.1 % 713-8) BASO % (test code = 0.5 % 706-2) GRAN MAT x10^3(ANC) 3.20 10*3/uL 1.99-6.95 (test code = 2973044631) IMM GRAN x10^3 (test <0.03 0-0.06 code = 5144339083) LYMPH x10^3 (test code 1.64 10*3/uL 1.09-3.23 = 731-0) MONO x10^3 (test code 0.73 10*3/uL 0.36-1.02 = 742-7) EOS x10^3 (test code = 0.18 10*3/uL 0.06-0.53 711-2) BASO x10^3 (test code 0.03 10*3/uL 0.01-0.09 = 704-7) Lab Interpretation Abnormal (test code = 91182-0) [facility] WITH [id number] 23:57:00 Test Item Value Reference Range Interpretation [...] RDW-SD (test code = 49.6 fL 38.5-51.6 28561-2) RDW-CV (test code = 14.6 % 12.1-15.4 788-0) PLT (test code = See_Comment L [Automated 777-3) message] The sy stem which generated this result transmitted reference range : 150 - 328 10*3/ ?L. The reference r corey was not used to interpret this result as normal/abnormal . MPV (test code = 9.9 fL 9.8-13 43908-1) NRBC/100 WBC (test See_Comment [Automat ed code = 1812206846) message] The system which generated this result transmitted reference range : 0.0 - 10.0 /100 WBCs. The refer ence range was not u sed to interpret th is result as normal/abnormal . NRBC x10^3 (test code <0.01 See_Comment [Auto mated = 4630023795) message] The s ystem which generated this result transmitted reference range : 10*3/?L. The reference range was not used to interpret this result as normal/abnormal . GRAN MAT (NEUT) % 55.3 % (test code = 770-8) IMM GRAN % (test code 0.20 % = 5308010782) LYMPH % (test code = 28.3 % 736-9) MONO % (test code = 12.6 % 5905-5) EOS % (test code = 3.1 % 713-8) BASO % (test code = 0.5 % 706-2) GRAN MAT x10^3(ANC) 3.20 10*3/uL 1.99-6.95 (test code = 1112860448) IMM GRAN x10^3 (test <0.03 0-0.06 code = 7745536940) LYMPH x10^3 (test code 1.64 10*3/uL 1.09-3.23 = 731-0) MONO x10^3 (test code 0.73 10*3/uL 0.36-1.02 = 742-7) EOS x10^3 (test code = 0.18 10*3/uL 0.06-0.53 711-2) BASO x10^3 (test code 0.03 10*3/uL 0.01-0.09 = 704-7) Lab Interpretation Abnormal (test code = 08233-8) [facility] [id number] 21:48:00 Test Item Value Reference Range Interpretation Comments SARS-CoV-2 (test code = Not Detected Not Detected 16413-1) ALYSSA (test code = ALYSSA) ID NOW COVID-19 Assay is an isothermal nucleic acid amplification test intended for the qualitative detection of nucleic acid from SARS-CoV-2 viral RNA in nasopharyngeal (PHLEBOTOMY SUPERVISOR) specimens. It is used under Emergency [...] indicated. Lab Interpretation Normal (test code = 83646-1) [facility] HospitalTroponin [id number] 21:44:00 Test Item Value Reference Range Interpretation Comments TROPONIN I (test 0.027 ng/mL See_Comment [Automated code = 4905511966) message] The system which generated this result [...] ? Lab Interpretation Normal (test code = 34882-5) [facility] HospitalProthrombin Time (PT) / [id number] 21:41:00 Test Item Value Reference Range Interpretation [...] tions. Lab Interpretation (test Normal code = 10988-9) [facility] HospitalN-TERMINAL [id number] 21:39:00 Test Item Value Reference Range Interpretation Comments NT-proBNP (test code 663 pg/mL See_Comment H [Autom ated = 5181507753) message] The system which generated this result transmitted reference range : <=450. The reference range was not used to interpret this result as normal/abnormal . ALYSSA (test code = ALYSSA) Biotin has been reported to cause a negative bias, interpret results relative to patient's use of biotin. Lab Interpretation Abnormal (test code = 18425-7) [facility] HospitalCOMP. METABOLIC PANEL (69060)2020-03-21 21:37:00 Test Item Value Reference Range Interpretation Comments NA (test code = 139 mmol/L 135-145 1947476918) K (test code = 4.1 mmol/L 3.5-5 5740810814) CL (test code = 102 mmol/L 98-108 2221366234) CO2 TOTAL (test code = 29 mmol/L 23-31 5222439655) AGAP (test code = 2-16 2078872319) BUN (test code = 18 mg/dL 7-23 5348103402) GLUCOSE (test code = 277 mg/dL 70-110 H 4945168261) CREATININE (test code = 1.23 mg/dL 0.6-1.25 5622027794) TOTAL BILI (test code = 1.3 mg/dL 0.1-1.1 H 0508769144) CALCIUM (test code = 9.8 mg/dL 8.6-10.6 4827045453) T PROTEIN (test code = 7.0 g/dL 6.3-8.2 4433430117) ALBUMIN (test code = 4.2 g/dL 3.5-5 9142358948) ALK PHOS (test code = 50 U/L 34-122 8980728705) ALTv (test code = 15 U/L 5-50 1742-6) AST(SGOT) (test code = 22 U/L 13-40 4125270568) eGFR Calculation mL/min/1.73m2 (Non-) (test code = 2173606858) eGFR Calculation mL/min/1.73m2 () (test code = 7134807542) ALYSSA (test code = ALYSSA) Association of [...] tests). Lab Interpretation Abnormal (test code = 73793-0) [facility] HospitalLipase [id number] 21:37:00 Test Item Value Reference Range Interpretation Comments LIPASE (test code = 0860006058) 161 U/L 0-220 Lab Interpretation (test code = Normal 17165-2) [facility] 1 [id number] 20:46:31HISTORY: Chest pain. TECHNIQUE: Portable AP view [...] noted. Mild thoracolumbar scoliosis noted.CONCLUSIONS: Mild cardiomegaly. [facility] HospitalLawaic Acid Whole [id number] 20:43:00 Test Item Value Reference Range Interpretation Comments LACTIC ACID (test code = 1.91 mmol/L 0.3-2.6 0280123731) [facility] GLUCOSE (AUTOMATED)2020-03-07 20:58:00 Test Item Value Reference Range Interpretation Comments POCT GLU (test code = 2975462789) 216 mg/dL 70-110 H Lab Interpretation (test code = Abnormal 00011-7) [facility] GLUCOSE (AUTOMATED)2020-03-07 16:00:00 Test Item Value Reference Range Interpretation Comments POCT GLU (test code = 0479512556) 168 mg/dL 70-110 H Lab Interpretation (test code = Abnormal 64428-6) [facility] GLUCOSE (AUTOMATED)2020-03-07 13:07:00 Test Item Value Reference Range Interpretation Comments POCT GLU (test code = 6567821141) 148 mg/dL 70-110 H Lab Interpretation (test code = Abnormal 96315-5) [facility] HospitalTROPONIN [id number] 11:27:00 Test Item Value Reference Range Interpretation Comments TROPONIN I (test 0.051 ng/mL See_Comment H [Automated code = 2207505641) message] The system which generated this result [...] ? Lab Interpretation Abnormal (test code = 42001-9) [facility] HospitalN-[facility]MINAL [id number] 11:24:00 Test Item Value Reference Range Interpretation Comments NT-proBNP (test code 336 pg/mL See_Comment [Autom ated = 4268628020) message] The system which generated this result transmitted reference range : <=450. The reference range was not used to interpret this result as normal/abnormal . ALYSSA (test code = ALYSSA) Biotin has been reported to cause a negative bias, interpret results relative to patient's use of biotin. Lab Interpretation Normal (test code = 53498-0) [facility] (NA, K, CL, CO2, GLUCOSE, BUN, CREATININE, CA)2020-03-07 11:14:00 Test Item Value Reference Range Interpretation Comments NA (test code = 138 mmol/L 135-145 9559280056) K (test code = 3.8 mmol/L 3.5-5 4156340244) CL (test code = 97 mmol/L 98-108 L 6885590569) CO2 TOTAL (test code = 30 mmol/L 23-31 6018831597) AGAP (test code = 2-16 7765143005) BUN (test code = 36 mg/dL 7-23 H 5792867975) GLUCOSE (test code = 140 mg/dL 70-110 H 9039784670) CREATININE (test code = 1.50 mg/dL 0.6-1.25 H 5876533755) CALCIUM (test code = 10.0 mg/dL 8.6-10.6 2676939629) eGFR Calculation mL/min/1.73m2 (Non-) (test code = 2377346657) eGFR Calculation mL/min/1.73m2 () (test code = 5009202560) ALYSSA (test code = ALYSSA) Association of [...] tests). Lab Interpretation Abnormal (test code = 84915-2) [facility] [id number] 11:14:00 Test Item Value Reference Range Interpretation Comments URIC ACID (test code = 9264237928) 5.4 mg/dL 3.6-8 Lab Interpretation (test code = Normal 57138-7) [facility] WITH [id number] 10:53:00 Test Item Value Reference Range Interpretation Comments WBC (test code = See_Comment [Automated 8790-2) message] The sy stem which generated this result transmitted reference range : 4.20 - 10.70 10*3/?L. The reference range was not used to interpret this result as normal/abnormal . RBC (test code = See_Comment L [Automated 613-8) message] The sy stem which generated this [...] RDW-SD (test code = 45.1 fL 38.5-51.6 58504-5) RDW-CV (test code = 14.2 % 12.1-15.4 788-0) PLT (test code = See_Comment [Automated 777-3) message] The sy stem which generated this result transmitted reference range : 150 - 328 10*3/ ?L. The reference r corey was not used to interpret this result as normal/abnormal . MPV (test code = 9.8 fL 9.8-13 46975-6) NRBC/100 WBC (test See_Comment [Automat ed code = 0498291361) message] The system which generated this result transmitted reference range : 0.0 - 10.0 /100 WBCs. The refer ence range was not u sed to interpret th is result as normal/abnormal . NRBC x10^3 (test code <0.01 See_Comment [Auto mated = 2595539796) message] The s ystem which generated this result transmitted reference range : 10*3/?L. The reference range was not used to interpret this result as normal/abnormal . GRAN MAT (NEUT) % 51.0 % (test code = 770-8) IMM GRAN % (test code 0.50 % = 3509448296) LYMPH % (test code = 32.0 % 736-9) MONO % (test code = 11.3 % 5905-5) EOS % (test code = 4.3 % 713-8) BASO % (test code = 0.9 % 706-2) GRAN MAT x10^3(ANC) 2.85 10*3/uL 1.99-6.95 (test code = 1726516180) IMM GRAN x10^3 (test 0.03 10*3/uL 0-0.06 code = 7526608422) LYMPH x10^3 (test code 1.79 10*3/uL 1.09-3.23 = 731-0) MONO x10^3 (test code 0.63 10*3/uL 0.36-1.02 = 742-7) EOS x10^3 (test code = 0.24 10*3/uL 0.06-0.53 711-2) BASO x10^3 (test code 0.05 10*3/uL 0.01-0.09 = 704-7) Lab Interpretation Abnormal (test code = 99938-3) [facility] GLUCOSE (AUTOMATED)2020-03-06 22:46:00 Test Item Value Reference Range Interpretation Comments POCT GLU (test code = 9489145106) 209 mg/dL 70-110 H Lab Interpretation (test code = Abnormal 78146-2) [facility] GLUCOSE (AUTOMATED)2020-03-06 16:23:00 Test Item Value Reference Range Interpretation Comments POCT GLU (test code = 3237639041) 254 mg/dL 70-110 H Lab Interpretation (test code = Abnormal 50930-2) [facility] GLUCOSE (AUTOMATED)2020-03-06 12:51:00 Test Item Value Reference Range Interpretation Comments POCT GLU (test code = 3608643043) 126 mg/dL 70-110 H Lab Interpretation (test code = Abnormal 88109-9) [facility] [id number] 10:16:00 Test Item Value Reference Range Interpretation Comments TROPONIN I (test 0.056 ng/mL See_Comment H [Automated code = 7974404467) message] The system which generated this result [...] ? Lab Interpretation Abnormal (test code = 84650-6) [facility] (NA, K, CL, CO2, GLUCOSE, BUN, CREATININE, CA)2020-03-06 10:13:00 Test Item Value Reference Range Interpretation Comments NA (test code = 136 mmol/L 135-145 4797270000) K (test code = 4.1 mmol/L 3.5-5 0291734335) CL (test code = 95 mmol/L 98-108 L 6989309993) CO2 TOTAL (test code = 30 mmol/L 23-31 6875472630) AGAP (test code = 2-16 8472898784) BUN (test code = 35 mg/dL 7-23 H 6852939198) GLUCOSE (test code = 174 mg/dL 70-110 H 2422367133) CREATININE (test code = 1.67 mg/dL 0.6-1.25 H 4387387312) CALCIUM (test code = 9.7 mg/dL 8.6-10.6 7806117356) eGFR Calculation mL/min/1.73m2 (Non-) (test code = 8846948351) eGFR Calculation mL/min/1.73m2 () (test code = 9685638070) ALYSSA (test code = ALYSSA) Association of [...] tests). Lab Interpretation Abnormal (test code = 18417-4) [facility] WITH [id number] 09:16:00 Test Item Value Reference Range Interpretation Comments WBC (test code = See_Comment [Automated 9190-2) message] The sy stem which generated this [...] RDW-SD (test code = 45.6 fL 38.5-51.6 95963-7) RDW-CV (test code = 14.3 % 12.1-15.4 788-0) PLT (test code = See_Comment [Automated 777-3) message] The sy stem which generated this result transmitted reference range : 150 - 328 10*3/ ?L. The reference r corey was not used to interpret this result as normal/abnormal . MPV (test code = 9.8 fL 9.8-13 74139-0) NRBC/100 WBC (test See_Comment [Automat ed code = 9831313276) message] The system which generated this result transmitted reference range : 0.0 - 10.0 /100 WBCs. The refer ence range was not u sed to interpret th is result as normal/abnormal . NRBC x10^3 (test code <0.01 See_Comment [Auto mated = 3397009969) message] The s ystem which generated this result transmitted reference range : 10*3/?L. The reference range was not used to interpret this result as normal/abnormal . GRAN MAT (NEUT) % 56.1 % (test code = 770-8) IMM GRAN % (test code 0.10 % = 5201370259) LYMPH % (test code = 29.7 % 736-9) MONO % (test code = 9.6 % 5905-5) EOS % (test code = 3.8 % 713-8) BASO % (test code = 0.7 % 706-2) GRAN MAT x10^3(ANC) 3.79 10*3/uL 1.99-6.95 (test code = 9523459449) IMM GRAN x10^3 (test <0.03 0-0.06 code = 1755177632) LYMPH x10^3 (test code 2.01 10*3/uL 1.09-3.23 = 731-0) MONO x10^3 (test code 0.65 10*3/uL 0.36-1.02 = 742-7) EOS x10^3 (test code = 0.26 10*3/uL 0.06-0.53 711-2) BASO x10^3 (test code 0.05 10*3/uL 0.01-0.09 = 704-7) Lab Interpretation Abnormal (test code = 78562-7) [facility] GLUCOSE (AUTOMATED)2020-03-06 01:25:00 Test Item Value Reference Range Interpretation Comments POCT GLU (test code = 9239808605) 208 mg/dL 70-110 H Lab Interpretation (test code = Abnormal 42309-4) [facility]TRT[facility]IN [id number] 00:08:00 Test Item Value Reference Range Interpretation Comments TROPONIN I (test 0.047 ng/mL See_Comment H [Automated code = 4657263138) message] The system which generated this result [...] ? Lab Interpretation Abnormal (test code = 58975-8) [facility] GLUCOSE (AUTOMATED)2020-03-05 21:19:00 Test Item Value Reference Range Interpretation Comments POCT GLU (test code = 4131488996) 234 mg/dL 70-110 H Lab Interpretation (test code = Abnormal 60737-9) [facility] GLUCOSE (AUTOMATED)2020-03-05 16:55:00 Test Item Value Reference Range Interpretation Comments POCT GLU (test code = 0257309863) 258 mg/dL 70-110 H Lab Interpretation (test code = Abnormal 32363-8) [facility] GLUCOSE (AUTOMATED)2020-03-05 12:59:00 Test Item Value Reference Range Interpretation Comments POCT GLU (test code = 2880080846) 194 mg/dL 70-110 H Lab Interpretation (test code = Abnormal 13449-1) [facility] [id number] 10:54:00 Test Item Value Reference Range Interpretation Comments TROPONIN I (test 0.071 ng/mL See_Comment H [Automated code = 2944970446) message] The system which generated this result [...] ? Lab Interpretation Abnormal (test code = 11626-5) [facility] (NA, K, CL, CO2, GLUCOSE, BUN, CREATININE, CA)2020-03-05 10:43:00 Test Item Value Reference Range Interpretation Comments NA (test code = 139 mmol/L 135-145 7193385883) K (test code = 4.1 mmol/L 3.5-5 2919165792) CL (test code = 101 mmol/L 98-108 3546274028) CO2 TOTAL (test code = 27 mmol/L 23-31 3406852997) AGAP (test code = 2-16 0100787067) BUN (test code = 25 mg/dL 7-23 H 7003466477) GLUCOSE (test code = 243 mg/dL 70-110 H 6456387161) CREATININE (test code = 1.22 mg/dL 0.6-1.25 5037067843) CALCIUM (test code = 9.8 mg/dL 8.6-10.6 0350994048) eGFR Calculation mL/min/1.73m2 (Non-) (test code = 7634221126) eGFR Calculation mL/min/1.73m2 () (test code = 1974581371) ALYSSA (test code = ALYSSA) Association of [...] tests). Lab Interpretation Abnormal (test code = 83243-6) [facility] WITH [id number] 10:23:00 Test Item Value Reference Range Interpretation Comments WBC (test code = See_Comment [Automated message] 6690-2) The system Sign[employer] generated this result transmitted ref erence range: 4.20 - 1 0.70 10*3/?L. The re ference range was not u sed to interpret this result as normal/abnor mal. RBC (test code = See_Comment [Automated message] 799-8) The system Sign[employer] generated this result transmitted ref erence range: [...] RDW-SD (test code 47.8 fL 38.5-51.6 = 80463-7) RDW-CV (test code 14.4 % 12.1-15.4 = 788-0) PLT (test code = See_Comment [Automated message] 997-3) The system Sign[employer] generated this result transmitted ref erence range: 150 - 32 8 10*3/?L. The re ference range was not u sed to interpret this result as normal/abnor mal. MPV (test code = 9.8 fL 9.8-13 40479-2) NRBC/100 WBC (test See_Comment [Automat ed message] code = 5223722044) The syste [employer] which generated this result transmitted ref erence range: 0.0 - 10 .0 /100 WBCs. The refer ence range was not u sed to interpret this result as normal/abnor mal. NRBC x10^3 (test <0.01 See_Comment [Automated message] code = 6714298045) The syste m which generated this result transmitted ref erence range: 10*3/?L. The reference range was not used to interpr et this result as normal/abnormal . GRAN MAT (NEUT) % 48.8 % (test code = 445-8) IMM GRAN % (test 0.20 % code = 8378610761) LYMPH % (test code 34.7 % = 736-9) MONO % (test code 10.8 % = 5905-5) EOS % (test code = 4.9 % 713-8) BASO % (test code 0.6 % = 706-2) GRAN MAT 2.49 10*3/uL 1.99-6.95 x10^3(ANC) (test code = 1519671952) IMM GRAN x10^3 <0.03 0-0.06 (test code = 8509371926) LYMPH x10^3 (test 1.77 10*3/uL 1.09-3.23 code = 731-0) MONO x10^3 (test 0.55 10*3/uL 0.36-1.02 code = 742-7) EOS x10^3 (test 0.25 10*3/uL 0.06-0.53 code = 711-2) BASO x10^3 (test 0.03 10*3/uL 0.01-0.09 code = 704-7) [facility]ST 1 [id number] 03:06:08 No acute cardiopulmonary process. Unchanged enlargement [...] terminating over themid to lower thoracic spine. [facility], Radiant Results Inft User - 03/04/2020 10:07 [...] reviewed this study and agree with the abovereport.[facility] CORONAVIRUS COVID-19 [id number] 00:34:00 Test Item Value Reference Range Interpretation Comments SARS-CoV-2 (test code = Not Detected Not Detected 65525-2) ALYSSA (test code = ALYSSA) ID NOW COVID-19 Assay is an isothermal nucleic acid amplification test intended for the qualitative detection of nucleic acid from SARS-CoV-2 viral RNA in nasopharyngeal (PHLEBOTOMY SUPERVISOR) specimens. It is used under Emergency [...] indicated. Lab Interpretation Normal (test code = 94584-7) [facility] HospitalTroponin [id number] 00:08:00 Test Item Value Reference Range Interpretation Comments TROPONIN I (test 0.056 ng/mL See_Comment H [Automated code = 4559153810) message] The system which generated this result [...] ? Lab Interpretation Abnormal (test code = 98773-3) [facility]MINAL [id number] 00:04:00 Test Item Value Reference Range Interpretation Comments NT-proBNP (test code 562 pg/mL See_Comment H [Autom ated = 5874660916) message] The system which generated this result transmitted reference range : <=450. The reference range was not used to interpret this result as normal/abnormal . ALYSSA (test code = ALYSSA) Biotin has been reported to cause a negative bias, interpret results relative to patient's use of biotin. Lab Interpretation Abnormal (test code = 05464-3) [facility] HospitalProthrombin Time (PT) / [id number] 23:57:00 Test Item Value Reference Range Interpretation [...] tions. Lab Interpretation (test Normal code = 29423-0) [facility] HospitalBasi Metabolic Panel (NA, K, CL, CO2, GLUCOSE, BUN, CREATININE, CA)2020-03-04 23:56:00 Test Item Value Reference Range Interpretation Comments NA (test code = 139 mmol/L 135-145 9084206934) K (test code = 4.1 mmol/L 3.5-5 0537812437) CL (test code = 102 mmol/L 98-108 9137016849) CO2 TOTAL (test code = 29 mmol/L 23-31 4813089388) AGAP (test code = 2-16 0773595043) BUN (test code = 23 mg/dL 7-23 0826759685) GLUCOSE (test code = 193 mg/dL 70-110 H 3952704816) CREATININE (test code = 1.25 mg/dL 0.6-1.25 4867754615) CALCIUM (test code = 9.7 mg/dL 8.6-10.6 0933457937) eGFR Calculation mL/min/1.73m2 (Non-) (test code = 3982863125) eGFR Calculation mL/min/1.73m2 () (test code = 7383192365) ALYSSA (test code = ALYSSA) Association of [...] tests). Lab Interpretation Abnormal (test code = 56161-0) [facility] HospitalHepatic Function Panel (ALB, T.PRO, BILI T, BU/BC, ALT, AST, ALK PHOS)2020-03-04 23:56:00 Test Item Value Reference Range Interpretation Comments TOTAL BILI (test code = 7370373870) 1.1 mg/dL 0.1-1.1 BILI UNCON (test code = 8696835998) 1.1 mg/dL 0.1-1.1 BILI CONJ (test code = 3674168079) 0.0 mg/dL 0-0.3 T PROTEIN (test code = 9541290902) 7.1 g/dL 6.3-8.2 ALBUMIN (test code = 8147606103) 4.1 g/dL 3.5-5 ALK PHOS (test code = 9409606382) 61 U/L 34-122 ALTv (test code = 1742-6) 16 U/L 5-50 AST(SGOT) (test code = 9783955968) 23 U/L 13-40 Lab Interpretation (test code = Normal 11082-2) [facility] HospitalLipase [id number] 23:56:00 Test Item Value Reference Range Interpretation Comments LIPASE (test code = 4452558444) 149 U/L 0-220 Lab Interpretation (test code = Normal 39785-7) [facility] HospitalaPTT2020-04-19 23:56:00 Test Item Value Reference Range Interpretation Comments APTT Patient (test See_Comment [Automat ed code = 3173-2) message] The system which generated this result transmitted reference range : 23 - 38 Seconds . The reference range was not used to interpr et this result as normal/abnormal . ALYSSA (test code = ALYSSA) The [email or web address] patient population mean normal value for aPTT is 30 seconds. Lab Interpretation Normal (test code = 74529-4) [facility] HospitalCBC WITH [id number] 23:46:00 Test Item Value Reference Range Interpretation [...] RDW-SD (test code = 48.3 fL 38.5-51.6 59117-2) RDW-CV (test code = 14.7 % 12.1-15.4 788-0) PLT (test code = See_Comment [Automated 777-3) message] The sy stem which generated this result transmitted reference range : 150 - 328 10*3/ ?L. The reference r corey was not used to interpret this result as normal/abnormal . MPV (test code = 9.8 fL 9.8-13 56053-0) NRBC/100 WBC (test See_Comment [Automat ed code = 9568094256) message] The system which generated this result transmitted reference range : 0.0 - 10.0 /100 WBCs. The refer ence range was not u sed to interpret th is result as normal/abnormal . NRBC x10^3 (test code <0.01 See_Comment [Auto mated = 9351067313) message] The s ystem which generated this result transmitted reference range : 10*3/?L. The reference range was not used to interpret this result as normal/abnormal . GRAN MAT (NEUT) % 60.1 % (test code = 770-8) IMM GRAN % (test code 0.20 % = 8695140379) LYMPH % (test code = 26.4 % 736-9) MONO % (test code = 9.9 % 5905-5) EOS % (test code = 2.8 % 713-8) BASO % (test code = 0.6 % 706-2) GRAN MAT x10^3(ANC) 3.17 10*3/uL 1.99-6.95 (test code = 5809435653) IMM GRAN x10^3 (test <0.03 0-0.06 code = 9281139164) LYMPH x10^3 (test code 1.39 10*3/uL 1.09-3.23 = 731-0) MONO x10^3 (test code 0.52 10*3/uL 0.36-1.02 = 742-7) EOS x10^3 (test code = 0.15 10*3/uL 0.06-0.53 711-2) BASO x10^3 (test code 0.03 10*3/uL 0.01-0.09 = 704-7) Lab Interpretation Abnormal (test code = 04313-5) [facility] GLUCOSE (AUTOMATED)2020-03-02 16:04:00 Test Item Value Reference Range Interpretation Comments POCT GLU (test code = 4309266867) 214 mg/dL 70-110 H Lab Interpretation (test code = Abnormal 55636-4) [facility] GLUCOSE (AUTOMATED)2020-03-02 16:04:00 Test Item Value Reference Range Interpretation Comments POCT GLU (test code = 1356651660) 271 mg/dL 70-110 H Lab Interpretation (test code = Abnormal 19567-8) [facility] HospitalN-TERMINAL [id number] 09:43:00 Test Item Value Reference Range Interpretation Comments NT-proBNP (test code 1670 pg/mL See_Comment H [Autom ated = 6621570286) message] The system which generated this result transmitted reference range : <=450. The reference range was not used to interpret this result as normal/abnormal . ALYSSA (test code = ALYSSA) Biotin has been reported to cause a negative bias, interpret results relative to patient's use of biotin. Lab Interpretation Abnormal (test code = 07669-6) [facility] (NA, K, CL, CO2, GLUCOSE, BUN, CREATININE, CA)2020-03-02 09:33:00 Test Item Value Reference Range Interpretation Comments NA (test code = 143 mmol/L 135-145 8763606429) K (test code = 3.8 mmol/L 3.5-5 4894355349) CL (test code = 105 mmol/L 98-108 7583774045) CO2 TOTAL (test code = 28 mmol/L 23-31 4172249067) AGAP (test code = 2-16 9433904474) BUN (test code = 19 mg/dL 7-23 2122899200) GLUCOSE (test code = 152 mg/dL 70-110 H 3058698009) CREATININE (test code = 1.18 mg/dL 0.6-1.25 3063342365) CALCIUM (test code = 9.0 mg/dL 8.6-10.6 9066348090) eGFR Calculation mL/min/1.73m2 (Non-) (test code = 6776315162) eGFR Calculation mL/min/1.73m2 () (test code = 4369188040) ALYSSA (test code = ALYSSA) Association of [...] tests). Lab Interpretation Abnormal (test code = 27424-1) [facility] Test Item Value Reference Range Interpretation Comments MAGNESIUM (test code = 4361771629) 1.8 mg/dL 1.7-2.4 Lab Interpretation (test code = Normal 28185-5) [facility]PO[facility])2020-03-01 20:42:00 Test Item Value Reference Range Interpretation Comments POCT GLU (test code = 9212270027) 231 mg/dL 70-110 H Lab Interpretation (test code = Abnormal 92571-3) [facility] HospitalVITAMIN B12, [id number] 11:51:00 Test Item Value Reference Range Interpretation Comments VIT B12 (test code = 325 pg/mL 240-930 5620251916) ALYSSA (test code = ALYSSA) Biotin has been reported to cause a positive bias, interpret results relative to patient's use of biotin. Lab Interpretation (test Normal code = 56499-0) [facility] HospitalFOLATE2020-04-16 11:49:00 Test Item Value Reference Range Interpretation Comments FOLATE SER (test code = >20.0 3-20 H Slig ht hemolysis 3427322735) Lab Interpretation (test Abnormal code = 45209-6) [facility] HospitalPROCALCITONIN2020-04-16 10:49:00 Test Item Value Reference Range Interpretation Comments Procalcitonin (test 3.05 ng/mL <0.07 H code = 9103905157) ALYSSA (test code = ALYSSA) INTERPRETATION OF [...] For further information please refer to:[email or web address] Lab Interpretation Abnormal (test code = 20560-8) [facility] HospitalWENDY [id number] 09:58:00 Test Item Value Reference Range Interpretation Comments TROPONIN I (test 0.093 ng/mL See_Comment H [Automated code = 8704185178) message] The system which generated this result [...] ? Lab Interpretation Abnormal (test code = 04721-5) [facility] HospitalN-TERMINAL [id number] 09:55:00 Test Item Value Reference Range Interpretation Comments NT-proBNP (test code 4450 pg/mL See_Comment H [Autom ated = 6403940047) message] The system which generated this result transmitted reference range : <=450. The reference range was not used to interpret this result as normal/abnormal . ALYSSA (test code = ALYSSA) Biotin has been reported to cause a negative bias, interpret results relative to patient's use of biotin. Lab Interpretation Abnormal (test code = 28717-7) [facility] HospitalBasic [facility]abolic Panel (NA, K, CL, CO2, GLUCOSE, BUN, CREATININE, CA)2020-03-01 09:50:00 Test Item Value Reference Range Interpretation Comments NA (test code = 141 mmol/L 135-145 2294526432) K (test code = 3.5 mmol/L 3.5-5 8799168052) CL (test code = 105 mmol/L 98-108 8806343468) CO2 TOTAL (test code = 26 mmol/L 23-31 1062622317) AGAP (test code = 2-16 7552548352) BUN (test code = 13 mg/dL 7-23 7257450939) GLUCOSE (test code = 219 mg/dL 70-110 H 9122534414) CREATININE (test code = 1.01 mg/dL 0.6-1.25 7101871092) CALCIUM (test code = 8.7 mg/dL 8.6-10.6 2397859202) eGFR Calculation mL/min/1.73m2 (Non-) (test code = 8490448250) eGFR Calculation mL/min/1.73m2 () (test code = 5590674661) ALYSSA (test code = ALYSSA) Association of [...] tests). Lab Interpretation Abnormal (test code = 52197-4) [facility] HospitalMagnesium [id number] 09:50:00 Test Item Value Reference Range Interpretation Comments MAGNESIUM (test code = 0503455464) 1.9 mg/dL 1.7-2.4 Lab Interpretation (test code = Normal 44402-4) [facility] WITH [id number] 09:22:00 Test Item Value Reference Range Interpretation [...] RDW-SD (test code = 47.8 fL 38.5-51.6 59581-4) RDW-CV (test code = 14.8 % 12.1-15.4 788-0) PLT (test code = See_Comment L [Automated 777-3) message] The sy stem which generated this result transmitted reference range : 150 - 328 10*3/ ?L. The reference r corey was not used to interpret this result as normal/abnormal . MPV (test code = 9.9 fL 9.8-13 35300-2) NRBC/100 WBC (test See_Comment [Automat ed code = 6880386632) message] The system which generated this result transmitted reference range : 0.0 - 10.0 /100 WBCs. The refer ence range was not u sed to interpret th is result as normal/abnormal . NRBC x10^3 (test code <0.01 See_Comment [Auto mated = 2596480403) message] The s ystem which generated this result transmitted reference range : 10*3/?L. The reference range was not used to interpret this result as normal/abnormal . GRAN MAT (NEUT) % 66.0 % (test code = 770-8) IMM GRAN % (test code 0.30 % = 2344660977) LYMPH % (test code = 20.8 % 736-9) MONO % (test code = 9.5 % 5905-5) EOS % (test code = 2.8 % 713-8) BASO % (test code = 0.6 % 706-2) GRAN MAT x10^3(ANC) 4.44 10*3/uL 1.99-6.95 (test code = 5271413588) IMM GRAN x10^3 (test <0.03 0-0.06 code = 3362817973) LYMPH x10^3 (test code 1.40 10*3/uL 1.09-3.23 = 731-0) MONO x10^3 (test code 0.64 10*3/uL 0.36-1.02 = 742-7) EOS x10^3 (test code = 0.19 10*3/uL 0.06-0.53 711-2) BASO x10^3 (test code 0.04 10*3/uL 0.01-0.09 = 704-7) Lab Interpretation Abnormal (test code = 22884-3) [facility] HospitalGLYCOSYLATED HEMOGLOBIN (A1C)2020-03-01 06:49:00 Test Item Value Reference Interpretation Comments Range HGB A1C (test code = See_Comment H [Autom ated 9758-4) message] The system which generated this result transmitted reference range : 4.0 - 6.0 % NGSP. The reference range was not used to interpret this result as normal/abnormal . ALYSSA (test code = %A1C (NGSP) ALYSSA) Interpretation (ADA)4.8-5.6 ? ? Normal or (Non-Diabetic Range)5.7-6.4 ? ? Increased Risk (Pre-Diabetic)>6.5 ?Diabetes Indicated Lab Interpretation Abnormal (test code = 84021-6) [facility] [id number] 06:25:00 Test Item Value Reference Range Interpretation Comments URIC ACID (test code = 1415370623) 2.3 mg/dL 3.6-8 L Lab Interpretation (test code = Abnormal 90076-7) [facility] HospitalSEDIMENTATION [id number] 05:25:00 Test Item Value Reference Range Interpretation Comments ESR (test code = See_Comment H [Automated message] 9661175733) The system Signify[employer] generated this result transmitted ref erence range: 0 - 10 m m/HR. The reference r corey was not used to interpret this result as normal/abnor mal. Lab Interpretation (test Abnormal code = 81467-3) [facility]AL [id number] 04:07:00 Test Item Value Reference Range Interpretation Comments NT-proBNP (test code 4080 pg/mL See_Comment H [Autom ated = 1454271819) message] The system which generated this result transmitted reference range : <=450. The reference range was not used to interpret this result as normal/abnormal . ALYSSA (test code = ALYSSA) Biotin has been reported to cause a negative bias, interpret results relative to patient's use of biotin. Lab Interpretation Abnormal (test code = 16298-5) [facility]2020-03-01 03:42:00 Test Item Value Reference Range Interpretation Comments POCT GLU (test code = 8760755441) 190 mg/dL 70-110 H Lab Interpretation (test code = Abnormal 62395-2) [facility] HospitalTROPONIN [id number] 03:30:00 Test Item Value Reference Range Interpretation Comments TROPONIN I (test 0.098 ng/mL See_Comment H [Automated code = 8091234599) message] The system which generated this result [...] ? Lab Interpretation Abnormal (test code = 82999-0) [facility] HospitalHEPATIC FUNCTION PANEL (18340) (ALB,T.PRO,BILI T,BU/BC,ALT,AST,ALK PHOS)2020-03-01 03:24:00 Test Item Value Reference Range Interpretation Comments TOTAL BILI (test code = 3883598375) 2.2 mg/dL 0.1-1.1 H BILI UNCON (test code = 4767396319) 2.0 mg/dL 0.1-1.1 H BILI CONJ (test code = 8144960156) 0.0 mg/dL 0-0.3 T PROTEIN (test code = 9686505160) 6.7 g/dL 6.3-8.2 ALBUMIN (test code = 2031437978) 4.0 g/dL 3.5-5 ALK PHOS (test code = 5774895469) 48 U/L 34-122 ALTv (test code = 1742-6) 18 U/L 5-50 AST(SGOT) (test code = 2307055947) 57 U/L 13-40 H Lab Interpretation (test code = Abnormal 54519-4) [facility] HospitalPhosphorus [id number] 03:17:00 Test Item Value Reference Range Interpretation Comments PHOSPHORUS (test code = 3.1 mg/dL 2.5-5 Slig ht hemolysis 8695841117) Lab Interpretation (test Normal code = 04472-9) [facility] HospitalPROTHROMBIN TIME / [id number] 03:08:00 Test Item Value Reference Range Interpretation Comments PROTIME PATIENT (test See_Comment [Auto mated message] code = 5964-2) The system [employer] generated this result transmitted ref erence range: 12.0 - 1 4.7 Seconds. The re ference range was not u sed to interpret this result as normal/abnor mal. INR (test code = 6301-6) Nor mal INR <1.1; Warfarin Therap eutic range 2.0 to 3. 0 or 2.5 to 3.5, dep ending upon the indica tions. Lab Interpretation (test Normal code = 06102-6) [facility] HospitalCREATINE [id number] 03:01:00 Test Item Value Reference Range Interpretation Comments CK (test code = 3262839034) 68 U/L 33-194 Lab Interpretation (test code = Normal 96520-8) [facility] [id number] 02:41:00 Test Item Value Reference Range Interpretation Comments URIC ACID (test code = 6813713403) 2.3 mg/dL 3.6-8 L Lab Interpretation (test code = Abnormal 95260-1) [facility] HospitalTHYROID STIMULATING [id number] 02:26:00 Test Item Value Reference Range Interpretation Comments TSH (test code = See_Comment [Automated message] 4152886145) The system Sign[employer] generated this result transmitted ref erence range: 0.45 - 4 .70 mIU/L. The refe rence range was not u sed to interpret this result as normal/abnor mal. Lab Interpretation (test Normal code = 18699-3) [facility] HospitalN-TERMINAL [id number] 02:04:00 Test Item Value Reference Range Interpretation Comments NT-proBNP (test code 4390 pg/mL See_Comment H [Autom ated = 1322786993) message] The system which generated this result transmitted reference range : <=450. The reference range was not used to interpret this result as normal/abnormal . ALYSSA (test code = ALYSSA) Biotin has been reported to cause a negative bias, interpret results relative to patient's use of biotin. Lab Interpretation Abnormal (test code = 96085-0) [facility] HospitalMAGNESIUM2020-04-16 02:01:00 Test Item Value Reference Range Interpretation Comments MAGNESIUM (test code = 6245056380) 1.5 mg/dL 1.7-2.4 L Lab Interpretation (test code = Abnormal 00097-3) [facility] HospitalLIPASE2020-04-16 00:22:00 Test Item Value Reference Range Interpretation Comments LIPASE (test code = 2778344643) 68 U/L 0-220 Lab Interpretation (test code = Normal 22947-4) [facility] HospitalCORONAVIRUS COVID-19 [id number] 23:42:00 Test Item Value Reference Range Interpretation Comments SARS-CoV-2 (test code = Not Detected Not Detected 52194-2) ALYSSA (test code = ALYSSA) ID NOW COVID-19 Assay is an isothermal nucleic acid amplification test intended for the qualitative detection of nucleic acid from SARS-CoV-2 viral RNA in nasopharyngeal (PHLEBOTOMY SUPERVISOR) specimens. It is used under Emergency [...] indicated. Lab Interpretation Normal (test code = 24362-7) [facility] HospitalXR CHEST 1 VW [id number] 23:26:02 No acute intrathoracic abnormality, specifically no [...] have reviewed this study and agree with theabovereport.[facility] HospitalWendy [id number] 22:59:00 Test Item Value Reference Range Interpretation Comments TROPONIN I (test 0.071 ng/mL See_Comment H [Automated code = 1847558184) message] The system which generated this result [...] ? Lab Interpretation Abnormal (test code = 43232-3) [facility] (NA, K, CL, CO2, GLUCOSE, BUN, CREATININE, CA)2020-02-29 22:48:00 Test Item Value Reference Range Interpretation Comments NA (test code = 141 mmol/L 135-145 1746842206) K (test code = 3.2 mmol/L 3.5-5 L 4029940997) CL (test code = 104 mmol/L 98-108 3756687426) CO2 TOTAL (test code = 25 mmol/L 23-31 7943969189) AGAP (test code = 2-16 3285788287) BUN (test code = 12 mg/dL 7-23 3372453894) GLUCOSE (test code = 250 mg/dL 70-110 H 5406308356) CREATININE (test code = 1.02 mg/dL 0.6-1.25 3807962202) CALCIUM (test code = 8.9 mg/dL 8.6-10.6 4610813927) eGFR Calculation mL/min/1.73m2 (Non-) (test code = 5244453830) eGFR Calculation mL/min/1.73m2 () (test code = 6093865441) ALYSSA (test code = ALYSSA) Association of [...] tests). Lab Interpretation Abnormal (test code = 59189-2) [facility] WITH [id number] 22:41:00 Test Item Value Reference Range Interpretation Comments WBC (test code = See_Comment [Automated 1590-2) message] The sy stem which generated this result transmitted reference range : 4.20 - 10.70 10*3/?L. The reference range was not used to interpret this result as normal/abnormal . RBC (test code = See_Comment L [Automated 089-8) message] The sy stem which generated this [...] RDW-SD (test code = 46.6 fL 38.5-51.6 18866-7) RDW-CV (test code = 14.6 % 12.1-15.4 788-0) PLT (test code = See_Comment [Automated 777-3) message] The sy stem which generated this result transmitted reference range : 150 - 328 10*3/ ?L. The reference r corey was not used to interpret this result as normal/abnormal . MPV (test code = 9.7 fL 9.8-13 L 95142-9) NRBC/100 WBC (test See_Comment [Automat ed code = 5642121187) message] The system which generated this result transmitted reference range : 0.0 - 10.0 /100 WBCs. The refer ence range was not u sed to interpret th is result as normal/abnormal . NRBC x10^3 (test code <0.01 See_Comment [Auto mated = 2427843573) message] The s ystem which generated this result transmitted reference range : 10*3/?L. The reference range was not used to interpret this result as normal/abnormal . GRAN MAT (NEUT) % 68.6 % (test code = 770-8) IMM GRAN % (test code 0.30 % = 2382681579) LYMPH % (test code = 18.6 % 736-9) MONO % (test code = 10.1 % 5905-5) EOS % (test code = 1.8 % 713-8) BASO % (test code = 0.6 % 706-2) GRAN MAT x10^3(ANC) 4.29 10*3/uL 1.99-6.95 (test code = 8005823570) IMM GRAN x10^3 (test <0.03 0-0.06 code = 7040026011) LYMPH x10^3 (test code 1.16 10*3/uL 1.09-3.23 = 731-0) MONO x10^3 (test code 0.63 10*3/uL 0.36-1.02 = 742-7) EOS x10^3 (test code = 0.11 10*3/uL 0.06-0.53 711-2) BASO x10^3 (test code 0.04 10*3/uL 0.01-0.09 = 704-7) Lab Interpretation Abnormal (test code = 37048-3) [facility] Acid Whole [id number] 22:38:00 Test Item Value Reference Range Interpretation Comments LACTIC ACID (test code = 1.88 mmol/L 0.3-2.6 8072444425) [facility] HospitalPODC GLUCOSE (AUTOMATED)2020-01-17 18:18:00 Test Item Value Reference Range Interpretation Comments POCT GLU (test code = 2343933219) 290 mg/dL 70-110 H Lab Interpretation (test code = Abnormal 08001-6) [facility] HospitalTROPONIN [id number] 18:01:00 Test Item Value Reference Range Interpretation Comments TROPONIN I (test 0.065 ng/mL See_Comment H [Automated code = 0852249777) message] The system which generated this result [...] ? Lab Interpretation Abnormal (test code = 34663-4) [facility] HospitalaPTT2020-03-03 17:10:00 Test Item Value Reference Range Interpretation Comments APTT Patient (test See_Comment H [Automat ed code = 3173-2) message] The system which generated this result transmitted reference range : 23 - 38 Seconds . The reference range was not used to interpr et this result as normal/abnormal . ALYSSA (test code = ALYSSA) [email or web address] patient population mean normal value for aPTT is 30 seconds. Lab Interpretation Abnormal (test code = 84335-4) [facility] HospitalPO[facility] (AUTOMATED)2020-01-17 11:59:00 Test Item Value Reference Range Interpretation Comments POCT GLU (test code = 8341532461) 185 mg/dL 70-110 H Lab Interpretation (test code = Abnormal 52898-5) [facility] HospitalTROPONIN [id number] 11:23:00 Test Item Value Reference Range Interpretation Comments TROPONIN I (test 0.073 ng/mL See_Comment H [Automated code = 3243549052) message] The system which generated this result [...] ? Lab Interpretation Abnormal (test code = 32826-0) [facility] Met[facility] (NA, K, CL, CO2, GLUCOSE, BUN, CREATININE, CA)2020-01-17 11:16:00 Test Item Value Reference Range Interpretation Comments NA (test code = 136 mmol/L 135-145 1216145943) K (test code = 3.3 mmol/L 3.5-5 L 7342954052) CL (test code = 101 mmol/L 98-108 2029308924) CO2 TOTAL (test code = 26 mmol/L 23-31 4689008620) AGAP (test code = 2-16 7838820252) BUN (test code = 19 mg/dL 7-23 7126416562) GLUCOSE (test code = 227 mg/dL 70-110 H 7999198420) CREATININE (test code = 1.33 mg/dL 0.6-1.25 H 1697657298) CALCIUM (test code = 9.1 mg/dL 8.6-10.6 4650866038) eGFR Calculation mL/min/1.73m2 (Non-) (test code = 2939917966) eGFR Calculation mL/min/1.73m2 () (test code = 0897415089) ALYSSA (test code = ALYSSA) Association of [...] tests). Lab Interpretation Abnormal (test code = 19997-5) [facility] HospitalaPTT2020-03-03 11:00:00 Test Item Value Reference Range Interpretation Comments APTT Patient (test See_Comment H [Automat ed code = 3173-2) message] The system which generated this result transmitted reference range : 23 - 38 Seconds . The reference range was not used to interpr et this result as normal/abnormal . ALYSSA (test code = ALYSSA) [facility] [[email or web address]] patient population mean normal value for aPTT is 30 seconds. Lab Interpretation Abnormal (test code = 88140-7) [facility] HospitalCBC WITH [id number] 10:43:00 Test Item Value Reference Range Interpretation Comments WBC (test code = See_Comment [Automated message] 6690-2) The system Sign[employer] generated this result transmitted ref erence range: 4.20 - 1 0.70 10*3/?L. The re ference range was not u sed to interpret this result as normal/abnor mal. RBC (test code = See_Comment [Automated message] 689-8) The system Sign[employer] generated this result transmitted ref erence range: [...] RDW-SD (test code 41.5 fL 38.5-51.6 = 56525-7) RDW-CV (test code 12.8 % 12.1-15.4 = 788-0) PLT (test code = See_Comment [Automated message] 907-3) The system Sign[employer] generated this result transmitted ref erence range: 150 - 32 8 10*3/?L. The re ference range was not u sed to interpret this result as normal/abnor mal. MPV (test code = 10.7 fL 9.8-13 45225-5) NRBC/100 WBC (test See_Comment [Automat ed message] code = 7537887589) The syste m which generated this result transmitted ref erence range: 0.0 - 10 .0 /100 WBCs. The refer ence range was not u sed to interpret this result as normal/abnor mal. NRBC x10^3 (test <0.01 See_Comment [Automated message] code = 2117820493) The syste m which generated this result transmitted ref erence range: 10*3/?L. The reference range was not used to interpr et this result as normal/abnormal . GRAN MAT (NEUT) % 56.1 % (test code = 770-8) IMM GRAN % (test 0.30 % code = 5947128813) LYMPH % (test code 29.5 % = 736-9) MONO % (test code 9.9 % = 5905-5) EOS % (test code = 3.3 % 713-8) BASO % (test code 0.9 % = 706-2) GRAN MAT 3.73 10*3/uL 1.99-6.95 x10^3(ANC) (test code = 0361435612) IMM GRAN x10^3 <0.03 0-0.06 (test code = 4893655887) LYMPH x10^3 (test 1.96 10*3/uL 1.09-3.23 code = 731-0) MONO x10^3 (test 0.66 10*3/uL 0.36-1.02 code = 742-7) EOS x10^3 (test 0.22 10*3/uL 0.06-0.53 code = 711-2) BASO x10^3 (test 0.06 10*3/uL 0.01-0.09 code = 704-7) [facility] GLUCOSE (AUTOMATED)2020-01-17 01:49:00 Test Item Value Reference Range Interpretation Comments POCT GLU (test code = 0233694343) 305 mg/dL 70-110 H Lab Interpretation (test code = Abnormal 27915-8) [facility] GLUCOSE (AUTOMATED)2020-01-17 00:01:00 Test Item Value Reference Range Interpretation Comments POCT GLU (test code = 6447489760) 271 mg/dL 70-110 H Lab Interpretation (test code = Abnormal 05827-2) [facility]aPTT2020-03-02 22:23:00 Test Item Value Reference Range Interpretation Comments APTT Patient (test See_Comment H [Automat ed code = 3173-2) message] The system which generated this result transmitted reference range : 23 - 38 Seconds . The reference range was not used to interpr et this result as normal/abnormal . ALYSSA (test code = ALYSSA) [facility] [[email or web address] patient population mean normal value for aPTT is 30 seconds. Lab Interpretation Abnormal (test code = 38463-5) [facility] HospitalTROPONIN [id number] 21:22:00 Test Item Value Reference Range Interpretation Comments TROPONIN I (test 0.061 ng/mL See_Comment H [Automated code = 9321297357) message] The system which generated this result [...] ? Lab Interpretation Abnormal (test code = 29539-9) [facility] GLUCOSE (AUTOMATED)2020-01-16 17:37:00 Test Item Value Reference Range Interpretation Comments POCT GLU (test code = 9794690141) 271 mg/dL 70-110 H Lab Interpretation (test code = Abnormal 88148-7) [facility]aPTT2020-03-02 12:47:00 Test Item Value Reference Range Interpretation Comments APTT Patient (test See_Comment HH [Automat ed code = 3173-2) message] The system which generated this result transmitted reference range : 23 - 38 Seconds . The reference range was not used to interpr et this result as normal/abnormal . ALYSSA (test code = ALYSSA) [facility] [[email or web address]] patient population mean normal value for aPTT is 30 seconds. Lab Interpretation Abnormal (test code = 83913-0) [facility] HospitalTROPONIN [id number] 12:35:00 Test Item Value Reference Range Interpretation Comments TROPONIN I (test 0.074 ng/mL See_Comment H [Automated code = 4269502285) message] The system which generated this result [...] ? Lab Interpretation Abnormal (test code = 06758-1) [facility] HospitalLIPID PANEL (86388)(TOTAL CHOLESTEROL, TRIGLYCERIDES, HDL)2020-01-16 12:23:00 Test Item Value Reference Range Interpretation Comments CHOL (test code = 95 mg/dL 120-200 L 2797842598) HDL (test code = 44 mg/dL >40 1810697914) HDLC RATIO (test code = See_Comment [Au tomated message] 6926522116) The system Sign[employer] generated this result transmitted ref erence range: <=5.0. T he reference range was not used to int erpret this result as normal/abnormal . TRIG (test code = 89 mg/dL 30-170 2778589033) LDL CHOL (test code = 33 mg/dL See_Comment [Auto mated message] 98035-7) The system Sign[employer] generated this result transmitted ref erence range: <=160. T he reference range was not used to int erpret this result as normal/abnormal . VLDL (test code = 18 mg/dL 5-60 9790926679) Lab Interpretation (test Abnormal code = 08305-5) [facility] HospitalGlycosylated Hemoglobin (A1C)2020-01-16 09:03:00 Test Item Value [...] Indicated Lab Interpretation Abnormal (test code = 33281-6) [facility] HospitalCritical [id number] 05:48:18Charanjit Heck MD ? ? 01/15/2020 11:48 [...] old charts and examination of patientUnTexas [facility] HospitalProthrombin Time (PT) / [id number] 05:28:00 Test Item Value Reference Range Interpretation [...] tions. Lab Interpretation (test Normal code = 22048-3) [facility] HospitalaPTT2020-03-02 05:27:00 Test Item Value Reference Range Interpretation Comments APTT Patient (test See_Comment [Automat ed code = 3173-2) message] The system which generated this result transmitted reference range : 23 - 38 Seconds . The reference range was not used to interpr et this result as normal/abnormal . ALYSSA (test code = ALYSSA) [facility] [[email or web address] patient population mean normal value for aPTT is 30 seconds. Lab Interpretation Normal (test code = 80141-5) [facility] HospitalTroponin [id number] 05:11:00 Test Item Value Reference Range Interpretation Comments TROPONIN I (test 0.075 ng/mL See_Comment H [Automated code = 3773619941) message] The system which generated this result [...] ? Lab Interpretation Abnormal (test code = 17869-0) [facility] HospitalN-TERMINAL [id number] 05:08:00 Test Item Value Reference Range Interpretation Comments NT-proBNP (test code 896 pg/mL See_Comment H [Autom ated = 0781578952) message] The system which generated this result transmitted reference range : <=450. The reference range was not used to interpret this result as normal/abnormal . ALYSSA (test code = ALYSSA) Biotin has been reported to cause a negative bias, interpret results relative to patient's use of biotin. Lab Interpretation Abnormal (test code = 12881-2) [facility] HospitalBasi Metabolic Panel (NA, K, CL, CO2, GLUCOSE, BUN, CREATININE, CA)2020-01-16 04:59:00 Test Item Value Reference Range Interpretation Comments NA (test code = 136 mmol/L 135-145 1623045425) K (test code = 4.0 mmol/L 3.5-5 6358270095) CL (test code = 101 mmol/L 98-108 9048434051) CO2 TOTAL (test code = 27 mmol/L 23-31 4603792406) AGAP (test code = 2-16 5746613867) BUN (test code = 17 mg/dL 7-23 5540448923) GLUCOSE (test code = 445 mg/dL 70-110 H 8743947617) CREATININE (test code = 1.29 mg/dL 0.6-1.25 H 0653534584) CALCIUM (test code = 8.8 mg/dL 8.6-10.6 0722430108) eGFR Calculation mL/min/1.73m2 (Non-) (test code = 6468893218) eGFR Calculation mL/min/1.73m2 () (test code = 6577433259) ALYSSA (test code = ALYSSA) Association of [...] tests). Lab Interpretation Abnormal (test code = 34107-3) [facility] HospitalHepatic Function Panel (ALB, T.PRO, BILI T, BU/BC, ALT, AST, ALK PHOS)2020-01-16 04:59:00 Test Item Value Reference Range Interpretation Comments TOTAL BILI (test code = 5805328560) 1.3 mg/dL 0.1-1.1 H BILI UNCON (test code = 6796464134) 1.1 mg/dL 0.1-1.1 BILI CONJ (test code = 9909161753) 0.0 mg/dL 0-0.3 T PROTEIN (test code = 7692112531) 6.3 g/dL 6.3-8.2 ALBUMIN (test code = 4619657644) 3.9 g/dL 3.5-5 ALK PHOS (test code = 0018602749) 67 U/L 34-122 ALTv (test code = 1742-6) 15 U/L 5-50 AST(SGOT) (test code = 5014118592) 23 U/L 13-40 Lab Interpretation (test code = Abnormal 29933-7) [facility] 1 [id number] 04:54:13Impression: Moderate cardiomegaly without acute pulmonary process. RL: 460 AFC: [id number] Indication: Chest pain Comparison: None available Findings: [...] place.IMPRESSIONImpression:Moderate cardiomegaly without acute pulmonary process.RL: 460AFC: [id number] signed by Esperanza Rosado MD, PhD at 01/15/2020 10:54 [facility] WITH [id number] 04:51:00 Test Item Value Reference Range Interpretation Comments WBC (test code = See_Comment [Automated 3590-2) message] The sy stem which generated this result transmitted reference range : 4.20 - 10.70 10*3/?L. The reference range was not used to interpret this result as normal/abnormal . RBC (test code = See_Comment L [Automated 929-8) message] The sy stem which generated this [...] RDW-SD (test code = 40.7 fL 38.5-51.6 35303-3) RDW-CV (test code = 12.8 % 12.1-15.4 788-0) PLT (test code = See_Comment L [Automated 777-3) message] The sy stem which generated this result transmitted reference range : 150 - 328 10*3/ ?L. The reference r corey was not used to interpret this result as normal/abnormal . MPV (test code = 10.6 fL 9.8-13 14188-8) IPF % (test code = 2.8 % 1.2-10.7 Platelet count 3996764283) measured by fluorescence method. NRBC/100 WBC (test See_Comment [Automat ed code = 9359204647) message] The system which generated this result transmitted reference range : 0.0 - 10.0 /100 WBCs. The refer ence range was not u sed to interpret th is result as normal/abnormal . NRBC x10^3 (test code <0.01 See_Comment [Auto mated = 2842371045) message] The s ystem which generated this result transmitted reference range : 10*3/?L. The reference range was not used to interpret this result as normal/abnormal . GRAN MAT (NEUT) % 56.0 % (test code = 770-8) IMM GRAN % (test code 0.20 % = 1696662003) LYMPH % (test code = 30.5 % 736-9) MONO % (test code = 9.6 % 5905-5) EOS % (test code = 2.8 % 713-8) BASO % (test code = 0.9 % 706-2) GRAN MAT x10^3(ANC) 2.98 10*3/uL 1.99-6.95 (test code = 1310951018) IMM GRAN x10^3 (test <0.03 0-0.06 code = 7047611856) LYMPH x10^3 (test code 1.62 10*3/uL 1.09-3.23 = 731-0) MONO x10^3 (test code 0.51 10*3/uL 0.36-1.02 = 742-7) EOS x10^3 (test code = 0.15 10*3/uL 0.06-0.53 711-2) BASO x10^3 (test code 0.05 10*3/uL 0.01-0.09 = 704-7) Lab Interpretation Abnormal (test code = 36386-8) [facility]"
== END 2022-04-13 23:59 | disposition home or self-care (01) ==
LOC: ER 21:17
DX: M54.42 Lumbago with sciatica, left side (principal); G89.29 Other chronic pain; E11.9 Type 2 diabetes mellitus without complications; I10 Essential (primary) hypertension; E78.00 Pure hypercholesterolemia, unspecified
CPT/HCPCS: 96375; 96374; 99283; J2001; J1100

== ENCOUNTER 2022-04-14 20:06 | Emergency (ER) | payer OTHER ==
--- OUTSIDE RECORDS SUMMARY | 2022-04-14 20:19 | XMS REPORT | Continuity of Care Document ---
:1940 Author Organization [facility] t Address [address] [place] [address] Care Team Providers Name Role Phone Andres [...] Attending Clinician Unavailable CHAVA Attending Clinician Unavailable Cahva WOOTEN Attending Clinician Wes STONER Attending Clinician [...] Number Effective Date Expiration Date Stacy torres [facility] [id number] 2020 00:00:00 [facility] [id number] 2019 DUAL COMPLETE HMO 00:00:00 [place] [id number] 2018 00:00:00 Problems Condition Condition Condition Status Onset Resolution Last Treating Co mments Source Name Details Category Date Date Treatment Clinician Date Unstable Unstable Disease Active 2019- Unive rs angina angina 5-07 ity of 00:00: [place] 00 Medical Branch ALBA (acute ALBA (acute Disease Active 2020- U nivers kidney kidney 4-21 ity of injury) injury) 00:00: [place] [facility] Chest pain Chest pain Disease Active 2019- U nivers 4-21 ity of 00:00: [place] [facility] Chest pain Chest pain Disease Active 2020- U 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 4-15 it y of 00:00: [place] [facility] 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 00:00: [place] and and 00 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 2018-11 U nivers lobe lobe 1-06 ity of pneumonia pneumonia 00:00: [facility] s 00 Medical Branch PNA PNA Disease Active 2018-11 Univers (pneumonia (pneumonia 0-25 it y of ) ) 00:00: [place] 00 Medical Branch Acute on Acute on [...] 2-17 it y of on on 00:00: [place] 00 Medical Branch Essential Essential Disease Active Uni vers hypertensi hypertensi 2-17 it y of on on 00:00: [place] 00 Medical Branch Type 2 Type 2 [...] 00:00: [place] involving involving 00 Medi [place] coronary 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 00:00: [place] disease disease 00 Medical Branch Coronary Coronary Disease Active Unive rs artery artery 1-27 ity of disease disease 00:00: [place] involving involving 00 Medi birdie [place] coronary 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[place] 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 [...] Active Univers ALLERGIE Class ity of S [facility] Social History Social Habit Start Date Stop Date Quantity Comments Source Exposure to Unable to assess Univers ity of SARS-CoV-2 (event) [facility] History of tobacco User of Univer sity of use smokeless [facility] [place] tobacco [place] Alcohol intake 2022-03-01 2022-03-01 Current University of 00:00:00 00:00:00 non-drinker of [facility] alcohol Branch (finding) Cigarettes smoked 2018-12-11 2018-12-11 Univers ity of current (pack per 00:00:00 00:00:00 [facility] ) - Reported Branch Cigarette 2018-12-11 2018-12-11 University of pack-years 00:00:00 00:00:00 [facility] Tobacco use and 2018-12-11 2018-12-11 Former user Universi ty of exposure 00:00:00 00:00:00 [facility] Sex Assigned At [birth year] Universit y of 00:00:00 00:00:00 [facility] Smoking Status Start Date Stop Date Source Former smoker 2018-12-11 00:00:00 2018-12-11 00:00:00 Universi ty [facility] [place] [facility] Medications Ordered Filled Start Stop Current Ordering Indication Dosage Frequency Signature Comments Components Source Medication Medication Date Date Medication? Clinician (SIG) Name Name FENTanyl PF No 25ug 25 mcg, Un mel (SUBLIMAZE 03-01 Intramuscu it y of (PF)) 16:45: 16:23 lar, ONCE, [place] injection 00 :00 1 dose, On Medi birdie 25 mcg [facility] 03/01/22 at 1145, Routine cyclobenzap No 10mg 10 mg, Uni vers rine 03-01 Oral, ity of (FLEXERIL) 14:00: 12:59 ONCE, 1 [place] as tablet 10 00 :00 dose, On Medica l mg [facility] 03/01/22 at 0900, Routine HYDROcodone 2021- [...] 03/01/22 at 0900, 1 mL cyclobenzap Yes [id number] 10mg Take 1 Univers rine 10 mg 16 tablet by ity of tablet 00:00: mouth 3 [place] 00 (three) Medical times [place] daily as needed for Muscle Spasms. aspirin 81 2020-11- No [id number] 81mg Take 1 Univers mg chewable 2-19 12-04 tablet by it y of tablet 00:00: 05:59 mouth [place] 00 :00 daily for Medical 30 days. [place] clopidogreL 2020-11- No [id number] 75mg Take 1 Univers 75 mg 2-19 - tablet by ity of tablet 00:00: 05:59 mouth [place] 00 :00 daily for Medical 30 days. Branch furosemide 2020-11- No [id number] 20mg Take 1 Univers 20 mg 2-04 12- tablet by ity of tablet 00:00: 05:59 mouth [place] 00 :00 daily for Medical 30 days. [place] aspirin 81 2020-11- No [id number] 81mg Take 1 Univers mg chewable 2-12-04 tablet by it y of tablet 00:00: 05:59 mouth [place] 00 :00 daily for Medical 30 days. Branch clopidogreL 2020-11- No [id number] 75mg Take 1 Univers 75 mg 2-19 - tablet by ity of tablet 00:00: 05:59 mouth [place] 00 :00 daily for Medical 30 days. Branch furosemide 2020-11- No [id number] 20mg Take 1 Univers 20 mg 2-19 - tablet by ity of tablet 00:00: 05:59 mouth [place] 00 :00 daily for Medical 30 days. [place] aspirin 81 2020-11- No [id number] 81mg Take 1 Univers mg chewable 2-19 - tablet by it y of tablet 00:00: 05:59 mouth [place] 00 :00 daily for Medical 30 days. Branch clopidogreL 2020-11- No [id number] 75mg Take 1 Univers 75 mg 01-04 tablet by ity of tablet 00:00: 05:59 mouth [place] 00 :00 daily for Medical 30 days. Branch furosemide 2020-11- No [id number] 20mg Take 1 Univers 20 mg 01-04 [...] 2-18 by mouth ity of 18:25: at [place] 21 bedtime. Medical Branch atorvastati 2020-11 Yes 40mg Take 40 mg Univers n 40 mg 2-18 by mouth ity of tablet 18:25: at [place] 21 bedtime. Medical Branch trazodone 2020-11 Yes [...] Until Discontinu ed, Routine QUEtiapine 2020-11 Yes [id number] 25mg Take 1 Univers 25 mg 2-18 tablet by ity of tablet 00:00: mouth at [place] [address] bedtime as Medical needed Branch (agitation /insomnia) . QUEtiapine 2020-11 Yes [id number] 25mg Take 1 Univers 25 mg 2-18 tablet by ity of tablet 00:00: mouth at [place] [address] bedtime as Medical needed Branch (agitation /insomnia) . QUEtiapine 2020-11 Yes [id number] 25mg Take 1 Univers 25 mg 2-18 tablet by ity of tablet 00:00: mouth at [place] [address] bedtime as Medical needed Branch (agitation /insomnia) . QUEtiapine 2020-11 Yes [id number] 25mg Take 1 Univers 25 mg 2-18 tablet by ity of tablet 00:00: mouth at [place] [address] bedtime as Medical needed Branch (agitation /insomnia) . isosorbide 2020-11 No [id number] 60mg Take 1 Univers mononitrate 2-18 01-18 tablet by it y of 60 mg 24 hr 00:00: 05:59 mouth 2 [place] tablet 00 :00 (two) Medical times Branch daily for 30 days. metoprolol 2020-11- No [id number] 37.5mg Take 1.5 Univers succinate 2-18 -18 tablets by ity of XL 25 mg 24 00:00: 05:59 mouth 2 [place] hr tablet 00 :00 (two) Medical times Branch daily for 30 days. isosorbide 2020-11- No [id number] 60mg Take 1 Univers mononitrate 2-18 -18 tablet by it y of 60 mg 24 hr 00:00: 05:59 mouth 2 [place] tablet 00 :00 (two) Medical times Branch daily for 30 days. metoprolol 2020-11- No [id number] 37.5mg Take 1.5 Univers succinate 2-18 -18 tablets by ity of XL 25 mg 24 00:00: 05:59 mouth 2 [place] hr tablet 00 :00 (two) Medical times Branch daily for 30 days. isosorbide 2020-11- No [id number] 60mg Take 1 Univers mononitrate 2-18 -18 tablet by it y of 60 mg 24 hr 00:00: 05:59 mouth 2 [place] tablet 00 :00 (two) Medical times Branch daily for 30 days. metoprolol 2020-11- No [id number] 37.5mg Take 1.5 Univers succinate 2-18 -18 [...] mg 03:00: First dose [place] 00 on [facility] Medical 10/31/21 Branch at 2100, Until Discontinu ed, Routine atorvastati 2020-11 Yes 40mg 40 mg, Univ ers n (LIPITOR) 2-17 Oral, QHS, it y of tablet 40 03:00: First dose [place] mg 00 on [facility] Medical 10/31/21 Branch at 2100, Until Discontinu ed, Routine clopidogreL 2020-11 Yes 75mg 75 mg, Univ ers (PLAVIX) 2-16 Oral, ity of tablet 75 23:30: DAILY, [place] mg 00 First dose Medical on [facility] Branch 10/31/21 at 1730, Until Discontinu ed, Routine sulfur 2020-11- No [id number] 5mL 5 mL, Unive rs hexafluorid 01-01 Intravenou i ty of e microsphr 17:00: 17:00 s, ONCE, 1 [place] (LUMASON) 00 :00 dose, On Medica l injection 5 Madhavi Branch mL 10/31/21 at 1100, Routine
support team member approving Restricted medication : MEGGAN [...] = 1 mg/kg Medical ?78 kg), Branch [facility], Q24H, First dose on Madhavi 10/31/21 at [...] KIT) 15 Starting Medical injection 1 on [facility] Branch mg 10/31/21 at 0216, Until Discontinu ed, ADAMA, Blood Glucose < or = 70 mg/dL and patient is unable to swallow or has mental changes. dextrose 50 2020-11 Yes 25mL 25 mL, Univ ers % in water 2-16 Slow IV ity of (D50W) 08:16: Push, PRN, [place] injection 14 Starting Medica l 25 mL on [facility] Branch 10/31/21 at 0216, Until Discontinu ed, ADAMA, Blood Glucose < or = 70 mg/dL and patient is unable to swallow or has mental status changes. morpHINE 2020-11- No 2mg 2 mg, Slow Un mel injection 2 01-0117 IV Push, ity of mg 07:36: 05:31 Q4HPRN, [place] 09 :07 Starting Medical on [facility] Branch 10/31/21 at 0136, Until Madhavi [...] IV Push, ity of (PF)) 05:32: Q6HPRN, [place] injection 4 10 Starting Medi birdie mg on Wed Branch 10/30/21 at 2332, Until Discontinu ed, Routine, Nausea and Vomiting (N/V) acetaminoph 2020-11 Yes 650mg 650 mg, Un mel en 2-16 Oral, ity of (TYLENOL) 05:31: Q6HPRN, [place] tablet 650 56 Starting Medic al mg on Thu Branch 10/30/21 at 2331, Until Discontinu ed, Routine, Pain (scale 1-3) acetaminoph 2020-11 Yes [id number] 1{tbl} 1 tablet, Univers en-codeine 2-16 Oral, ity of (TYLENOL 05:29: Q6HPRN, [place] #3) 300-30 29 Starting Medic al mg tablet 1 on Thu Branch tablet 10/30/21 at 2329, Until Discontinu ed, Routine, Pain (scale 4-6), Pain (scale 7-10) sodium 2020-11 Yes 5mL 5 mL, Univers chloride 2-16 Intravenou ity o f (NS) 01:21: s, PRN, [place] injection 5 02 Starting Medi birdie mL on Thu Branch 10/30/21 at 1921, Until Discontinu ed, Routine, IV line flushing morpHINE 2020- No 4mg 4 mg, Slow Un mel injection 4 6-10 06-10 IV Push, ity of mg 23:15: 22:23 ONCE, 1 [place] 00 :00 dose, Madhavi Medical 04/25/21 at Branch 1815, STAT acetaminoph 2020-2020- No 1{tbl} 1 tablet, Univers en-codeine 6-10 06-10 Oral, ity of (TYLENOL 19:00: 17:52 ONCE, 1 [place] #3) 300-30 00 :00 dose, Madhavi Medi birdie mg tablet 1 04/25/21 at Br anch tablet 1400, ADAMA cyclobenzap 2020- No 10mg 10 mg, Uni vers rine 6-10 06-10 Oral, ONCE ity of (FLEXERIL) 19:00: 17:52 NOW, 1 [place] tablet 10 00 :00 dose, Madhavi Medic al mg 04/25/21 at Branch 1400, ADAMA cyclobenzap 2020-0 Yes [id number] 5mg Take 1 Univers rine 5 mg 6-10 tablet by ity o f tablet 00:00: mouth 3 [place] 00 (three) Medical times Branch daily. cyclobenzap 2020-0 Yes [id number] 5mg Take 1 Univers rine 5 mg 6-10 tablet by ity o f tablet 00:00: mouth 3 [place] 00 (three) Medical times Branch daily. cyclobenzap 2020-0 Yes [id number] 5mg Take 1 Univers rine 5 mg [...] sided low back pain cyclobenzap 2020-0 Yes [id number] 5mg Take 1 Univers rine 5 mg [...] sided low back pain cyclobenzap 2020-0 Yes [id number] 5mg Take 1 Univers rine 5 mg 6-10 tablet by ity o f tablet 00:00: mouth 3 [place] 00 (three) Medical times Branch daily. cyclobenzap 2020-0 2021- No [id number] 5mg Take 1 Univers rine 5 mg [...] Medical 1,000 mg 05/24/20 at Branch 1100, DAAMA traMADol 50 2020-0 2020- No [id number] 50mg [...] U-100) 00 First dose Medical injection on [facility] Branch 30 Units 03/24/20 at 0900, Until Discontinu ed clopidogreL 2020-0 Yes 75mg 75 mg, Univ ers (PLAVIX) 03-24 Oral, ity of tablet 75 14:00: DAILY, [place] mg 00 First dose Medical on [facility] 03/24/20 at 0900, Until Discontinu ed, Routine insulin 2020-0 Yes 30U 30 Units, Unive rs glargine 03-24 Subcutaneo ity o f (LANTUS 14:00: us, DAILY, [place] U-100) 00 First dose Medical injection on [facility] Branch 30 Units 03/24/20 at 0900, Until Discontinu ed clopidogreL 2020-0 Yes 75mg 75 mg, Univ ers (PLAVIX) 03-24 Oral, ity of tablet 75 14:00: DAILY, [place] mg 00 First dose Medical on [facility] 03/24/20 at 0900, Until Discontinu ed, [...] First dose [place] mg 00 on [facility] Medical 03/23/20 at Branch 2100, Until Discontinu ed, Routine atorvastati 2020-0 Yes 40mg 40 mg, Univ ers n (LIPITOR) 5-09 Oral, QHS, it y of tablet 40 02:00: First dose [place] mg 00 on Thu Medical 03/23/20 at Branch 2100, Until Discontinu ed, Routine aspirin 81 2020-0 Yes [id number] 81mg Take 1 U nivers mg chewable 5-09 tablet by ity of tablet 00:00: mouth [place] 00 daily with Medical breakfast. [place] furosemide 2020-0 Yes [id number] 20mg Take 1 U nivers 20 mg 5-09 tablet by ity of tablet 00:00: mouth [place] 00 daily. [facility] aspirin 81 2020-0 Yes [id number] 81mg Take 1 U nivers mg chewable 5-09 tablet by ity of tablet 00:00: mouth [place] 00 daily with Medical breakfast. [place] furosemide 2020-0 Yes [id number] 20mg Take 1 U nivers 20 mg 5-09 tablet by ity of tablet 00:00: mouth [place] 00 daily. [facility] aspirin 81 2020-0 Yes [id number] 81mg Take 1 U nivers mg chewable 5-09 tablet by ity of tablet 00:00: mouth [place] 00 daily with Medical breakfast. [place] furosemide 2020-0 Yes [id number] 20mg Take 1 U nivers 20 mg 5-09 tablet by ity of tablet 00:00: mouth [place] 00 daily. [facility] aspirin 81 2020-0 Yes [id number] 81mg Take 1 U nivers mg chewable 5-09 tablet by ity of tablet 00:00: mouth [place] 00 daily with Medical breakfast. [place] furosemide 2020-0 Yes [id number] 20mg Take 1 U nivers 20 mg 5-09 tablet by ity of tablet 00:00: mouth [place] 00 daily. [facility] aspirin 81 2020-0 Yes [id number] 81mg Take 1 U nivers mg chewable 5-09 tablet by ity of tablet 00:00: mouth [place] 00 daily with Medical breakfast. [place] furosemide 2020-0 Yes [id number] 20mg Take 1 U nivers 20 mg 5-09 tablet by ity of tablet 00:00: mouth [place] 00 daily. [facility] aspirin 81 2020-0 Yes [id number] 81mg Take 1 U nivers mg chewable 5-09 tablet by ity of tablet 00:00: mouth [place] 00 daily with Medical breakfast. [place] furosemide 2020-0 Yes [id number] 20mg Take 1 U nivers 20 mg 5-09 tablet by ity of tablet 00:00: mouth [place] 00 daily. Medical Branch aspirin 81 2020-0 Yes [id number] 81mg Take 1 U nivers mg chewable 5-09 tablet by ity of tablet 00:00: mouth [place] 00 daily with Medical breakfast. Branch furosemide 2020-0 Yes [id number] 20mg Take 1 U nivers 20 mg 5-09 tablet by ity of tablet 00:00: mouth [place] 00 daily. Medical Branch aspirin 81 2020-0 Yes [id number] 81mg Take 1 U nivers mg chewable 5-09 tablet by ity of tablet 00:00: mouth [place] 00 daily with Medical breakfast. Branch furosemide 2020-0 Yes [id number] 20mg Take 1 U nivers 20 mg 5-09 tablet by ity of tablet 00:00: mouth [place] 00 daily. Medical Branch aspirin 81 2020-0 Yes [id number] 81mg Take 1 U nivers mg chewable 5-09 tablet by ity of tablet 00:00: mouth [place] 00 daily with Medical breakfast. Branch furosemide 2020-0 Yes [id number] 20mg Take 1 U nivers 20 mg 5-09 tablet by ity of tablet 00:00: mouth [place] 00 daily. Medical Branch aspirin 81 2020-0 2021- No [id number] 81mg Take 1 Univers mg chewable 5-09 12-18 tablet by it y of tablet 00:00: 00:00 mouth [place] 00 :00 daily with Medical breakfast. Branch furosemide 2020-0 2021- No [id number] 20mg Take 1 Univers 20 mg 5-09 12-18 tablet by ity of tablet 00:00: 00:00 mouth [place] 00 :00 daily. Medical Branch isosorbide 2020-0 2020- No [id number] 90mg Take 3 Univers mononitrate 5-09 05-08 tablets by i ty of 30 mg 24 hr 00:00: 00:00 mouth [place] tablet 00 :00 daily. Medical Branch isosorbide 2020-0 2020- No [id number] 90mg Take 3 Univers mononitrate 5-09 05-08 tablets by i ty of 30 mg 24 hr 00:00: 00:00 mouth [place] tablet 00 :00 daily. Medical Branch maalox/lido 2020-0 2020- No 5mL 5 mL, Univ ers sydni 2 5-08 05-08 Oral, ity of %viscous 20:45: 20:56 ONCE, 1 [place] 1:1 00 :00 dose, Fri Medical suspension 03/23/20 at [facility] (COMPOUNDED 1545, ) Routine maalox/lido 2020-0 2020- No 5mL 5 mL, Univ ers sydni 2 03-23-08 Oral, ity of %viscous 20:45: 20:56 ONCE, 1 [place] 1:1 00 :00 dose, Fri Medical suspension 03/23/20 at [facility] (COMPOUNDED 1545, ) Routine acetaminoph 2020-0 [...] :00 dose, Fri Medical (DEFINITY) 03/23/20 at [facility] injection 2 1030, mL Routine perflutren [...] IV Push, ity of mg 07:59: Q4HPRN, [place] 14 Starting Medical [place] [facility] 03/23/20 [place] at 0259, Until Discontinu ed, Routine, Chest pain magnesium 2020-0 2020- No 2g 2 g, IV Univ ers sulfate in 03-23 Piggyback, it y of water 2 07:45: 07:49 ONCE, 1 [place] gram/50 mL 00 :00 dose, Fri Medi birdie (4 %) 03/23/20 at [place] infusion 2 0245, g Routine KCL 2020-0 2020- No 40meq 40 mEq, Univers (KLOR-CON 03-23 Oral, ity of M20) tablet 07:45: 07:27 ONCE, 1 [place] 40 mEq 00 :00 dose, Fri Medical 03/23/20 at [place] 0245, Routine magnesium 2020-0 2020- No 2g 2 g, IV Univ ers sulfate in 03-23 Piggyback, it y of water 2 07:45: 07:49 ONCE, 1 [place] gram/50 mL 00 :00 dose, Fri Medi birdei (4 %) 03/23/20 at Branch infusion 2 0245, g Routine KCL 2020-0 2020- No 40meq 40 mEq, Univers (KLOR-CON 03-23 Oral, ity of M20) tablet 07:45: 07:27 ONCE, 1 [place] 40 mEq 00 :00 dose, Fri Medical 03/23/20 at [place] 0245, Routine heparin 2020-0 Yes 12U/kg/ 12 [...] tablet 0.4 doses, Branch mg Starting [facility] 03/22/20 at 2138, Until Discontinu ed, ADAMA, Chest pain nitroglycer 2020-0 Yes .4mg 0.4 mg, Uni vers in 03-23 Sublingual ity of (NITROSTAT) 02:38: , Q5MIN [place] as sublingual 00 PRN, 3 Medical tablet 0.4 doses, Branch mg Starting [facility] 03/22/20 at 2138, Until Discontinu ed, ADAMA, Chest pain aspirin 2020-0 2020- No 324mg 324 mg, Unive rs chewable 5- 05-08 Oral, ity of tablet 324 02:37: 02:51 ONCE, 1 [place] as mg 00 :00 dose, [facility] 03/22/20 at Branch 2145, ADAMA aspirin 2020-0 2020- No 324mg 324 mg, Unive rs chewable 03-23 05-08 Oral, ity of tablet 324 02:37: 02:51 ONCE, 1 [place] as mg 00 :00 dose, [facility] 03/22/20 at Branch 2145, ADAMA isosorbide 2020-0 Yes [id number] 90mg Take 1.5 Univers mononitrate 5-08 tablets by it y of 60 mg 24 hr 00:00: mouth [place] tablet 00 daily. [facility] isosorbide 2020-0 Yes [id number] 90mg Take 1.5 Univers mononitrate 5-08 tablets by it y of 60 mg 24 hr 00:00: mouth [place] tablet 00 daily. [facility] isosorbide 2020-0 Yes [id number] 90mg Take 1.5 Univers mononitrate 5-08 tablets by it y of 60 mg 24 hr 00:00: mouth [place] tablet 00 daily. [facility] isosorbide 2020-0 Yes [id number] 90mg Take 1.5 Univers mononitrate 5-08 tablets by it y of 60 mg 24 hr 00:00: mouth [place] tablet 00 daily. [facility] isosorbide 2020-0 Yes [id number] 90mg Take 1.5 Univers mononitrate 5-08 tablets by it y of 60 mg 24 hr 00:00: mouth [place] tablet 00 daily. Medical Branch isosorbide 2020-0 Yes [id number] 90mg Take 1.5 Univers mononitrate 5-08 tablets by it y of 60 mg 24 hr 00:00: mouth [place] tablet 00 daily. Medical Branch isosorbide 2020-0 Yes [id number] 90mg Take 1.5 Univers mononitrate 5-08 tablets by it y of 60 mg 24 hr 00:00: mouth [place] tablet 00 daily. Medical Branch isosorbide 2020-0 Yes [id number] 90mg Take 1.5 Univers mononitrate 5-08 tablets by it y of 60 mg 24 hr 00:00: mouth [place] tablet 00 daily. Medical Branch isosorbide 2020-0 Yes [id number] 90mg Take 1.5 Univers mononitrate 5-08 tablets by it y of 60 mg 24 hr 00:00: mouth [place] tablet 00 daily. Medical Branch isosorbide 2020-0 2021- No [id number] 90mg Take 1.5 Univers mononitrate 5-08 12-18 tablets by i ty of 60 mg 24 hr 00:00: 00:00 mouth [place] tablet 00 :00 daily. Medical Branch acetaminoph 2020-0 2020- No [id number] 975mg Take 3 Univers en 325 mg 5-08 05-19 tablets by ity of tablet 00:00: 04:59 mouth [place] 00 :00 every 8 Medical (eight) Branch hours for 10 days. acetaminoph 2020-0 2020- No [id number] 975mg Take 3 Univers en 325 mg 5-08 05-19 tablets by ity of tablet 00:00: 04:59 mouth [place] 00 :00 every 8 Medical (eight) Branch hours for 10 days. acetaminoph 2020-0 2020- No [id number] 975mg Take 3 Univers en 325 mg 5-08 05-19 tablets by ity of tablet 00:00: 04:59 mouth [place] 00 :00 every 8 Medical (eight) Branch hours for 10 days. acetaminoph 2020-0 2020- No [id number] 975mg Take 3 Univers en 325 mg 5-08 05-19 tablets by ity of tablet 00:00: 04:59 mouth [place] 00 :00 every 8 Medical (eight) Branch hours for 10 days. acetaminoph 2020-0 2020- No [id number] 975mg Take 3 Univers en 325 mg 5-08 05-19 tablets by ity of tablet 00:00: 04:59 mouth [place] 00 :00 every 8 Medical (eight) Branch hours for 10 days. lidocaine 5 2019- 2020- No [id number] 1{patch Apply 1 Univers % (700 5-08 05-09 } Patch to ity of mg/patch) 00:00: 04:59 area(s) [place] patch 00 :00 once now Medical for 1 Branch dose. lidocaine 5 2020- No [id number] 1{patch Apply 1 Univers % (700 5-08 05-09 } Patch to ity of mg/patch) 00:00: 04:59 area(s) [place] patch 00 :00 once now Medical for 1 Branch dose. lidocaine 5 2019- 2020- No [id number] 1{patch Apply 1 Univers % (700 5-08 05-08 } Patch to ity of mg/patch) 00:00: 00:00 area(s) [place] patch 00 :00 once now Medical for 1 Branch dose. lidocaine 5 2019- No [id number] 1{patch Apply 1 Univers % (700 5-08 05-08 } Patch to ity of mg/patch) 00:00: 00:00 area(s) [place] patch 00 :00 once now Medical for 1 Branch dose. glipiZIDE 2020-0 Yes 5mg 5 mg, Univers (GLUCOTROL) 4-23 Oral, ity of tablet 5 mg 14:00: DAILY, [place] 00 First dose Medical on [facility] Branch 03/08/20 at 0900, Until Discontinu ed, Routine spironolact 2019-0 2020- No [id number] 12.5mg Take 0.5 Univers one 25 mg 4-23 05-24 tablets by ity of tablet 00:00: 04:59 mouth [place] 00 :00 daily for Medical 30 days. Branch spironolact 2020-0 2020- No [id number] 12.5mg Take 0.5 Univers one 25 mg 4-23 05-24 tablets by ity of tablet 00:00: 04:59 mouth [place] 00 :00 daily for Medical 30 days. Branch spironolact 2020-0 2020- No [id number] 12.5mg Take 0.5 Univers one 25 mg 4-23 05-24 tablets by ity of tablet 00:00: 04:59 mouth [place] 00 :00 daily for Medical 30 days. Branch spironolact 2020-0 2020- No [id number] 12.5mg Take 0.5 Univers one 25 mg 4-23 05-07 tablets by ity of tablet 00:00: 00:00 mouth [place] 00 :00 daily for Medical 30 days. Branch spironolact 2020-0 2020- No [id number] 12.5mg Take 0.5 Univers one 25 mg [...] mouth ity of tablet 20:15: 00:00 at [place] 29 :00 bedtime. Medical Branch temazepam 2020-0 Yes 15mg 15 mg, Univer s (RESTORIL) 4-22 Oral, ity of capsule 15 01:55: QHSPRN, [place] mg 38 Starting Medical Tue Branch 03/06/20 at 2055, Until Discontinu ed, Routine, Insomnia Insulin 2020-0 Yes [id number] 10U inject 10 Univers Glargine 4-22 Units ity of 100 unit/mL 00:00: under the [place] (3 mL) 00 skin at Medical injection bedtime. Branch temazepam 2020-0 Yes [id number] 15mg Take 1 Un mel 15 mg 4-22 capsule by ity of capsule 00:00: mouth at [place] 00 bedtime as Medical needed for Branch Insomnia. furosemide 2020-0 Yes [id number] 40mg Take 1 Univers 40 mg 4-22 tablet by ity of tablet 00:00: mouth [place] 00 every Medical morning Branch and evening. Magnesium 2020-0 Yes [id number] 400mg Take 400 Univers Oxide 420 4-22 mg by ity of mg Tab 00:00: mouth [place] 00 daily. Medical Branch potassium 2020-0 Yes [id number] 20meq Take 20 Univers chloride 20 4-22 mEq by ity of mEq packet 00:00: mouth [place] 00 daily. Medical Take with Branch lasix in the morning isosorbide 2020-0 Yes [id number] 15mg Take 0.5 Univers mononitrate 4-22 tablets by it y of 30 mg 24 hr 00:00: mouth [place] tablet 00 daily. Medical Hold if Branch systolic blood pressure less than 120 Insulin 2020-0 Yes [id number] 10U inject 10 [facility] Glargine 4-22 Units ity of 100 unit/mL 00:00: under the [place] (3 mL) 00 skin at Medical injection bedtime. Branch temazepam 2020-0 Yes [id number] 15mg Take 1 Un mel 15 mg 4-22 capsule by ity of capsule 00:00: mouth at [place] 00 bedtime as Medical needed for Branch Insomnia. furosemide 2020-0 Yes [id number] 40mg Take 1 [facility] 40 mg 4-22 tablet by ity of tablet 00:00: mouth [place] 00 every Medical morning Branch and evening. Magnesium 2020-0 Yes [id number] 400mg Take 400 [facility] Oxide 420 4-22 mg by ity of mg Tab 00:00: mouth [place] 00 daily. Medical Branch potassium 2020-0 Yes [id number] 20meq Take 20 [facility] chloride 20 4-22 mEq by ity of mEq packet 00:00: mouth [place] 00 daily. Medical Take with Branch lasix in the morning isosorbide 2020-0 Yes [id number] 15mg Take 0.5 [facility] mononitrate 4-22 tablets by it y of 30 mg 24 hr 00:00: mouth [place] tablet 00 daily. Medical Hold if Branch systolic blood pressure less than 120 Insulin 2020-0 Yes [id number] 10U inject 10 [facility] Glargine 4-22 Units ity of 100 unit/mL 00:00: under the [place] (3 mL) 00 skin at Medical injection bedtime. Branch temazepam 2020-0 Yes [id number] 15mg Take 1 Un mel 15 mg 4-22 capsule by ity of capsule 00:00: mouth at [place] 00 bedtime as Medical needed for Branch Insomnia. furosemide 2020-0 Yes [id number] 40mg Take 1 [facility] 40 mg 4-22 tablet by ity of tablet 00:00: mouth [place] 00 every Medical morning Branch and evening. Magnesium 2020-0 Yes [id number] 400mg Take 400 [facility] Oxide 420 4-22 mg by ity of mg Tab 00:00: mouth [place] 00 daily. Medical Branch potassium 2020-0 Yes [id number] 20meq Take 20 [facility] chloride 20 4-22 mEq by ity of mEq packet 00:00: mouth [place] 00 daily. Medical Take with Branch lasix in the morning isosorbide 2020-0 Yes [id number] 15mg Take 0.5 [facility] mononitrate 4-22 tablets by it y of 30 mg 24 hr 00:00: mouth [place] tablet 00 daily. Medical Hold if Branch systolic blood pressure less than 120 Insulin 2020-0 Yes [id number] 10U inject 10 [facility] Glargine 4-22 Units ity of 100 unit/mL 00:00: under the [place] (3 mL) 00 skin at Medical injection bedtime. Branch Magnesium 2020-0 Yes [id number] 400mg Take 400 [facility] Oxide 420 4-22 mg by ity of mg Tab 00:00: mouth [place] 00 daily. Medical Branch vitamin 2019-0 2020- No [id number] 1000ug Take 1 [facility] B-12 1,000 4-22 07-22 tablet by ity of mcg tablet 00:00: 04:59 mouth [place] 00 :00 daily for Medical 90 days. Branch vitamin 2019-0 2020- No [id number] 1000ug Take 1 [facility] B-12 1,000 4-22 07-22 tablet by ity of mcg tablet 00:00: 04:59 mouth [place] 00 :00 daily for Medical 90 days. Branch vitamin 2020-0 2020- No [id number] 1000ug Take 1 [facility] B-12 1,000 4-22 07-22 tablet by ity of mcg tablet 00:00: 04:59 mouth [place] 00 :00 daily for Medical 90 days. Branch vitamin 2019-0 2020- No [id number] 1000ug Take 1 [facility] B-12 1,000 4-22 07-22 tablet by ity of mcg tablet 00:00: 04:59 mouth [place] 00 :00 daily for Medical 90 days. Branch glipiZIDE 5 2019- 2020- No [id number] 2.5mg Take 0.5 [facility] mg tablet 03-07-23 tablets by ity of 00:00: 04:59 mouth 2 [place] 00 :00 (two) Medical times Branch daily before breakfast and dinner for 30 days. metoprolol 2019-0 2020- No [id number] 25mg Take 1 [facility] succinate 03-07-23 tablet by ity of XL 25 mg 24 00:00: 04:59 mouth 2 [place] hr tablet 00 :00 (two) Medical times Branch daily for 30 days. OLANZapine 2019-0 2020- No [id number] 2.5mg Take 1 [facility] 2.5 mg -06 04-23 tablet by ity of tablet 00:00: 04:59 mouth at [place] 00 :00 bedtime Medical for 30 Branch days. ranolazine 2019-0 2020- No [id number] 1000mg Take 2 [facility] 500 mg 12 03-07-23 tablets by ity of hr tablet 00:00: 04:59 mouth [place] 00 :00 every 12 Medical (twelve) Branch hours for 30 days. aspirin 81 2019-0 2020- No [id number] 81mg Take 1 [facility] mg chewable 4-22 05-23 tablet by it y of tablet 00:00: 04:59 mouth [place] 00 :00 daily with Medical breakfast Branch for 30 days. atorvastati 2019-0 2020- No [id number] 40mg Take 1 [facility] n 40 mg 4-22 05-23 tablet by ity of tablet 00:00: 04:59 mouth at [place] 00 :00 bedtime Medical for 30 Branch days. glipiZIDE 5 2019- 2020- No [id number] 2.5mg Take 0.5 [facility] mg tablet 4-22 05-23 tablets by ity of 00:00: 04:59 mouth 2 [place] 00 :00 (two) Medical times Branch daily before breakfast and dinner for 30 days. metoprolol 2019-0 2020- No [id number] 25mg Take 1 [facility] succinate 4-22 05-23 tablet by ity of XL 25 mg 24 00:00: 04:59 mouth 2 [place] hr tablet 00 :00 (two) Medical times Branch daily for 30 days. OLANZapine 2020-0 2020- No [id number] 2.5mg Take 1 [facility] 2.5 mg 4-22 05-23 tablet by ity of tablet 00:00: 04:59 mouth at [place] 00 :00 bedtime Medical for 30 Branch days. ranolazine 2019-0 2020- No [id number] 1000mg Take 2 [facility] 500 mg 12 4-22 05-23 tablets by ity of hr tablet 00:00: 04:59 mouth [place] 00 :00 every 12 Medical (twelve) Branch hours for 30 days. aspirin 81 2019-0 2020- No [id number] 81mg Take 1 [facility] mg chewable 4-22 05-23 tablet by it y of tablet 00:00: 04:59 mouth [place] 00 :00 daily with Medical breakfast Branch for 30 days. atorvastati 2020-0 2020- No [id number] 40mg Take 1 [facility] n 40 mg 4-22 05-23 tablet by ity of tablet 00:00: 04:59 mouth at [place] 00 :00 bedtime Medical for 30 Branch days. glipiZIDE 5 2020-0 2020- No [id number] 2.5mg Take 0.5 [facility] mg tablet 4-22 05-23 tablets by ity of 00:00: 04:59 mouth 2 [place] 00 :00 (two) Medical times Branch daily before breakfast and dinner for 30 days. metoprolol 2020-0 2020- No [id number] 25mg Take 1 [facility] succinate 4-22 05-23 tablet by ity of XL 25 mg 24 00:00: 04:59 mouth 2 [place] hr tablet 00 :00 (two) Medical times Branch daily for 30 days. OLANZapine 2020-0 2020- No [id number] 2.5mg Take 1 [facility] 2.5 mg 4-22 05-23 tablet by ity of tablet 00:00: 04:59 mouth at [place] 00 :00 bedtime Medical for 30 Branch days. ranolazine 2020-0 2020- No [id number] 1000mg Take 2 [facility] 500 mg 12 4-22 05-23 tablets by ity of hr tablet 00:00: 04:59 mouth [place] 00 :00 every 12 Medical (twelve) Branch hours for 30 days. aspirin 81 2019-0 2020- No [id number] 81mg Take 1 [facility] mg chewable 4-22 05-23 tablet by it y of tablet 00:00: 04:59 mouth [place] 00 :00 daily with Medical breakfast Branch for 30 days. atorvastati 2019-0 2020- No [id number] 40mg Take 1 [facility] n 40 mg 4-22 05-23 tablet by ity of tablet 00:00: 04:59 mouth at [place] 00 :00 bedtime Medical for 30 Branch days. glipiZIDE 5 2019- 2020- No [id number] 2.5mg Take 0.5 [facility] mg tablet - 05-23 tablets by ity of 00:00: 04:59 mouth 2 [place] 00 :00 (two) Medical times Branch daily before breakfast and dinner for 30 days. metoprolol 2019-0 2020- No [id number] 25mg Take 1 [facility] succinate 4-22 05-23 tablet by ity of XL 25 mg 24 00:00: 04:59 mouth 2 [place] hr tablet 00 :00 (two) Medical times Branch daily for 30 days. ranolazine 2020-0 2020- No [id number] 1000mg Take 2 [facility] 500 mg 12 4-22 05-23 tablets by ity of hr tablet 00:00: 04:59 mouth [place] 00 :00 every 12 Medical (twelve) Branch hours for 30 days. atorvastati 2020-0 2020- No [id number] 40mg Take 1 [facility] n 40 mg 4-22 05- tablet by ity of tablet 00:00: 04:59 mouth at [place] 00 :00 bedtime Medical for 30 Branch days. furosemide 2020- No [id number] 40mg Take 1 [facility] 40 mg 03-07-08 tablet by ity of tablet 00:00: 00:00 mouth [place] 00 :00 every Medical morning Branch and evening. aspirin 81 2020- No [id number] 81mg Take 1 [facility] mg chewable 03-07-08 tablet by it y of tablet 00:00: 00:00 mouth [place] 00 :00 daily with Medical breakfast Branch for 30 days. isosorbide 2019- No [id number] 15mg Take 0.5 [facility] mononitrate 03-07-08 tablets by i ty of 30 mg 24 hr 00:00: 00:00 mouth [place] tablet 00 :00 daily. Medical Hold if Branch systolic blood pressure less than 120 Insulin 2019-2019- No [id number] 10U inject 10 [facility] Glargine 03-07-08 Units ity of 100 unit/mL 00:00: 00:00 under the [place] (3 mL) 00 :00 skin at Medical injection bedtime. Branch glipiZIDE 5 2019- No [id number] 2.5mg Take 0.5 [facility] mg tablet 03-07- tablets by ity of 00:00: 00:00 mouth 2 [place] 00 :00 (two) Medical times Branch daily before breakfast and dinner for 30 days. metoprolol 2019- No [id number] 25mg Take 1 [facility] succinate 03-07-08 tablet by ity of XL 25 mg 24 00:00: 00:00 mouth 2 [place] hr tablet 00 :00 (two) Medical times Branch daily for 30 days. ranolazine 2020- No [id number] 1000mg Take 2 [facility] 500 mg 12 03-07-08 tablets by ity of hr tablet 00:00: 00:00 mouth [place] 00 :00 every 12 Medical (twelve) Branch hours for 30 days. furosemide 2020- No [id number] 40mg Take 1 [facility] 40 mg 03-07-08 tablet by ity of tablet 00:00: 00:00 mouth [place] 00 :00 every Medical morning Branch and evening. aspirin 81 2019- No [id number] 81mg Take 1 [facility] mg chewable 03-07-08 tablet by it y of tablet 00:00: 00:00 mouth [place] 00 :00 daily with Medical breakfast Branch for 30 days. atorvastati 2019- No [id number] 40mg Take 1 [facility] n 40 mg 03-07-08 tablet by ity of tablet 00:00: 00:00 mouth at [place] 00 :00 bedtime Medical for 30 Branch days. Magnesium 2019-2019- No [id number] 400mg Take 400 [facility] Oxide 420 03-07 05-08 mg by ity of mg Tab 00:00: 00:00 mouth [place] 00 :00 daily. Medical Branch vitamin 2019-2019- No [id number] 1000ug Take 1 [facility] B-12 1,000 03-07-08 tablet by ity of mcg tablet 00:00: 00:00 mouth [place] 00 :00 daily for Medical 90 days. Branch isosorbide 2019- No [id number] 15mg Take 0.5 [facility] mononitrate 03-07-08 tablets by i ty of 30 mg 24 hr 00:00: 00:00 mouth [place] tablet 00 :00 daily. Medical Hold if Branch systolic blood pressure less than 120 OLANZapine 2019- No [id number] 2.5mg Take 1 [facility] 2.5 mg 03-07-07 tablet by ity of tablet 00:00: 00:00 mouth at [place] 00 :00 bedtime Medical for 30 Branch days. temazepam 2019- No [id number] 15mg Take 1 U nivers 15 mg 03-07-07 capsule by ity of capsule 00:00: 00:00 mouth at [place] 00 :00 bedtime as Medical needed for Branch Insomnia. potassium 2019- No [id number] 20meq Take 20 [facility] chloride 20 03-07 05-07 mEq by ity o f mEq packet 00:00: 00:00 mouth [place] 00 :00 daily. Medical Take with Branch lasix in the morning OLANZapine 2019- No [id number] 2.5mg Take 1 [facility] 2.5 mg 03-07 05-07 tablet by ity of tablet 00:00: 00:00 mouth at [place] 00 :00 bedtime Medical for 30 Branch days. temazepam 2019- No [id number] 15mg Take 1 U nivers 15 mg 03-07- capsule by ity of capsule 00:00: 00:00 mouth at [place] 00 :00 bedtime as Medical needed for [place] Insomnia. potassium 2020-0 2020- No [id number] 20meq Take 20 [facility] chloride 20 03-07-07 mEq by ity o f mEq packet 00:00: 00:00 mouth [place] 00 :00 daily. Medical Take with Branch lasix in the morning isosorbide 2020-0 2020- No 60mg 60 mg, Univ ers mononitrate 03-06- Oral, ity of (IMDUR) 24 14:00: 13:43 DAILY, [place] hr tablet 00 :56 First dose Medi birdie [address] [facility] 03/06/20 at 0900, Until Discontinu ed, Routine OLANZapine 2020-0 Yes 2.5mg 2.5 mg, Uni vers (ZyPREXA) - Oral, QHS, ity of tablet 2.5 02:00: First dose [place] mg 00 on [facility] 03/05/20 at Branch 2100, Until Discontinu ed, Routine insulin 2020-0 Yes 10U 10 Units, [facility] [place] rs glargine 03-06 Subcutaneo ity o f (LANTUS 02:00: us, QHS, [place] U-100) 00 First dose Medical injection on [facility] 10 Units 03/05/20 at 2100, Until Discontinu ed, Routine donepezil 2020-0 Yes 5mg 5 mg, Univers (ARICEPT) - Oral, QHS, ity of tablet 5 mg 02:00: First dose [place] 00 on [facility] 03/05/20 at Branch 2100, Until Discontinu ed, Routine atorvastati 2020-0 Yes 40mg 40 mg, Univ ers n (LIPITOR) - Oral, QHS, it y of tablet 40 02:00: First dose [place] mg 00 on [facility] 03/05/20 at Branch 2100, Until Discontinu ed, Routine isosorbide 2020-0 2020- No 30mg 30 mg, Univ ers mononitrate 03-05 Oral, ity of (IMDUR) 24 15:30: 15:21 ONCE, 1 [place] hr tablet 00 :00 dose, [facility] Medic al 30 mg 4/20/20 at [...] 03/05/20 at 0900, Until Discontinu ed, Routine
support team member approving Restricted medication : MEGADC [...] [place] ular + Fsbg 00 on [facility] Medica l Testing 03/05/20 at Branch 0730, Until Discontinu ed, Routine glipiZIDE 2020-0 2020- No 5mg 5 mg, Univer s (GLUCOTROL) 4-20 04-22 Oral, ity of tablet 5 mg 12:30: 19:41 BIDAC, [place] 00 :44 First dose Medical on [facility] Branch 03/05/20 at 0730, Until Discontinu ed, Routine glucagon 2020-0 Yes 1mg 1 mg, Univers (GLUCAGEN 4-20 Intramuscu ity of DIAGNOSTIC 03:02: [place], PRN, [place] KIT) 42 Starting Medical injection 1 [place] Branch mg 03/04/20 at 2202, Until Discontinu ed, ADAMA, Blood Glucose < or = 70 mg/dL and patient is unable to swallow or has mental changes. dextrose 50 2020-0 Yes 25mL 25 mL, Univ ers % in water 4-20 Slow IV ity of (D50W) 03:02: Push, PRN, [place] injection 42 Starting Medica l 25 mL [facility] 03/04/20 at 2202, Until Discontinu ed, ADAMA, Blood Glucose < or = 70 mg/dL and patient is unable to swallow or has mental status changes. furosemide 2020-0 Yes 40mg 40 mg, Unive rs (LASIX) 4-20 Oral, ity of tablet 40 03:00: QAM+PM, [place] mg 00 First dose Medical on [facility] 03/04/20 at 2200, Until Discontinu ed, Routine cyanocobala 2020-0 Yes 1000ug 1,000 mcg, Univers min 4-20 Subcutaneo ity of (VITAMIN 03:00: us, Q24H, [place] B12) 00 First dose Medical injection on [facility] 1,000 mcg 03/04/20 at 2200, Until Discontinu ed, Routine heparin 2020-0 Yes 5000U 5,000 Univers (porcine) 4-20 Units, ity of injection 03:00: Subcutaneo [place] 5,000 Units 00 us, Q8H, Medi birdie First dose Branch on [place] 03/04/20 at 2200, Until Discontinu ed, Routine ondansetron 2019-0 Yes 4mg 4 mg, Slow Univers (ZOFRAN 4-20 IV Push, ity of (PF)) 02:34: Q6HPRN, [place] injection 4 40 Starting Medi birdie mg [facility] 03/04/20 at 2134, Until Discontinu ed, Routine, Nausea and Vomiting (N/V) traMADol 2019-0 2020- No 50mg 50 mg, Univer s (ULTRAM) 4-20 04-22 Oral, ity of tablet 50 02:34: 02:33 Q8HPRN, [place] mg 23 :23 Starting Medical [facility] 03/04/20 at 2134, Until Tu03/06/20 at 2133, Routine, Pain (scale 4-6) acetaminoph 2019-0 Yes 650mg 650 mg, Un mel en 4-20 Oral, ity of (TYLENOL) 02:34: Q6HPRN, [place] tablet 650 20 Starting Medic al mg [facility] 03/04/20 at 2134, Until Discontinu ed, Routine, Pain (scale 1-3) lisinopril 2020-0 Yes [id number] 5mg Take 1 [facility] 5 mg tablet 4-18 tablet by ity of 00:00: mouth [place] 00 daily. Medical Branch isosorbide 2020-0 Yes [id number] 30mg Take 1 [facility] mononitrate 4-18 tablet by ity of 30 mg 24 hr 00:00: mouth [place] tablet 00 daily. [facility] Branch lisinopril 2020-0 Yes [id number] 5mg Take 1 Univers 5 mg tablet 4-18 tablet by ity of 00:00: mouth [place] 00 daily. [facility] Branch isosorbide 2020-0 Yes [id number] 30mg Take 1 [facility] mononitrate 4-18 tablet by ity of 30 mg 24 hr 00:00: mouth [place] tablet 00 daily. [facility] lisinopril 2020-0 2020- No [id number] 5mg Take 1 Univers 5 mg tablet 4-18 04-22 tablet by it y of 00:00: 00:00 mouth [place] 00 :00 daily. [facility] Branch isosorbide 2020-0 2020- No [id number] 30mg Take 1 [facility] mononitrate 4-18 04-22 [...] N ORAL 4-17 mouth. ity of 17:34: [place] [address] Medical Branch thiamine 2020-0 Yes 100mg Take 100 Univ ers (VITAMIN 4-17 mg by ity of B-1) 100 mg 17:34: mouth [place] tablet 27 daily. Medical Branch aspirin 81 2020-0 Yes 81mg Take 81 mg U nivers mg chewable 4-17 by mouth ity of tablet 17:34: daily. [place] [address] Medical Branch atorvastati 2019-0 Yes 40mg Take [...] N ORAL 4-17 mouth. ity of 17:34: [place] [address] Medical Branch thiamine 2020-0 Yes 100mg Take 100 Univ ers (VITAMIN 4-17 mg by ity of B-1) 100 mg 17:34: mouth [place] tablet 27 daily. Medical Branch aspirin 81 2020-0 Yes 81mg Take 81 mg U nivers mg chewable 4-17 by mouth ity of tablet 17:34: daily. [place] [address] Medical Branch atorvastati 2020-0 Yes 40mg Take 40 mg Univers n 40 mg 4-17 by mouth ity of tablet 17:34: at [place] [address] bedtime. Medical Branch NaCl 0.9% 2020-0 Yes [...] Until Discontinu ed, Routine furosemide 2020-0 Yes [id number] 40mg Take 1 [facility] 40 mg 4-17 tablet by ity of tablet 00:00: mouth [place] 00 every Medical morning Branch and evening. potassium 2020-0 Yes [id number] 20meq Take 20 [facility] chloride 20 4-17 mEq by ity of mEq packet 00:00: mouth [place] 00 daily. Medical Branch vitamin 2020-0 Yes [id number] 1000ug Take 1 U nivers B-12 1,000 4-17 tablet by ity of mcg tablet 00:00: mouth [place] 00 daily. Medical Branch furosemide 2020-0 Yes [id number] 40mg Take 1 [facility] 40 mg 4-17 tablet by ity of tablet 00:00: mouth [place] 00 every Medical morning Branch and evening. potassium 2020-0 Yes [id number] 20meq Take 20 [facility] chloride 20 4-17 mEq by ity of mEq packet 00:00: mouth [place] 00 daily. Medical Branch vitamin 2020-0 Yes [id number] 1000ug Take 1 U nivers B-12 1,000 4-17 tablet by ity of mcg tablet 00:00: mouth [place] 00 daily. Medical Branch furosemide 2020-0 2020- No [id number] 40mg Take 1 [facility] 40 mg 4-17 04-22 tablet by ity of tablet 00:00: 00:00 mouth [place] 00 :00 every Medical morning Branch and evening. potassium 2020-0 2020- No [id number] 20meq Take 20 [facility] chloride 20 4-17 04-22 mEq by ity o f mEq packet 00:00: 00:00 mouth [place] 00 :00 daily. Medical Branch vitamin 2020-0 2020- No [id number] 1000ug Take 1 [facility] B-12 1,000 4-17 04-22 tablet by ity of mcg tablet 00:00: 00:00 mouth [place] 00 :00 daily. Medical Branch cyanocobala 2020-0 Yes 1000ug 1,000 mcg, [facility] min 4-16 Subcutaneo ity of (VITAMIN 20:45: us, Q24H, [place] B12) 00 First dose Medical injection on [facility] Branch 1,000 mcg 03/01/20 at 1545, Until Discontinu ed, Routine isosorbide 2020-0 Yes 30mg 30 mg, Unive rs mononitrate 4-16 Oral, ity of (IMDUR) 24 14:00: DAILY, [place] hr tablet 00 First dose Medi birdie 30 mg on [facility] Branch 03/01/20 at 0900, Until Discontinu ed, Routine memantine 2019-0 Yes 10mg 10 mg, Univer s (NAMENDA) 4-16 Oral, ity of tablet 10 14:00: DAILY, [place] mg 00 First dose Medical on [facility] 03/01/20 at 0900, Until Discontinu ed, Routine
support team member approving Restricted medication : MEGADC lisinopril 2020-0 Yes 5mg 5 mg, Univer s (PRINIVIL,Z -16 Oral, ity of ESTRIL) 14:00: DAILY, [place] tablet 5 mg 00 First dose Me dical on [facility] 03/01/20 at 0900, Until Discontinu ed, Routine enoxaparin 2020-0 Yes 30mg 30 mg, Unive rs (LOVENOX) 03-01 Subcutaneo ity of injection 14:00: [place], DAILY, [place] 30 mg 00 First dose Medical on [facility] 03/01/20 at 0900, Until Discontinu ed, Routine KCL 2020-0 2020- No 20meq 20 mEq, Univers (KLOR-CON 03-01 Oral, ity of M20) tablet 14:00: 13:26 DAILY, [place] 20 mEq 00 :35 First dose Medical on [facility] 03/01/20 at 0900, Until Discontinu ed, Routine KCL 2020-0 Yes 40meq 40 mEq, Univers (KLOR-CON 16 Oral, BID, ity of M20) tablet 13:30: First dose [place] 40 mEq 00 on [facility] 03/01/20 at Branch 0830, Until Discontinu ed, Routine magnesium 2020-0 2020- No 2g 2 g, IV Univ ers sulfate in 03-01 Infusion, ity of water 2 03:30: 03:30 ONCE, 1 [place] gram/50 mL 00 :00 dose, Thu [facility] birdie (4 %) 2 g 02/29/20 at [facility] piggyback 2230 metoprolol 2020-0 2020- No 5mg 5 mg, Slow Univers (LOPRESSOR) 03-01 IV Push, ity of injection 5 03:30: 03:37 ONCE, 1 [place] mg 00 :00 dose, [facility] 02/29/20 at Branch 2230, ADAMA glipiZIDE 2020-0 Yes 5mg 5 mg, Univers (GLUCOTROL) 16 Oral, ity of tablet 5 mg 02:45: BIDAC, [place] 00 First dose Medical on [facility] 02/29/20 at 2145, Until [...] [place] 40 mEq 00 :00 dose, [facility] Medical 02/29/20 at Branch 2000, Routine acetaminoph 0 Yes 650mg 650 mg, Un mel en 02-28 Oral, ity of (TYLENOL) 23:57: Q6HPRN, [place] tablet 650 25 Starting Medic al mg [...] 02-14 by mouth ity of 00:00: daily. [address] donepezil 5 2019-0 2020- No 5mg Take 5 mg Univers mg tablet 02-1408 by mouth ity o f 00:00: 00:00 daily. [place] 00 :00 [facility] nitroglycer 2019-0 2020- No DISSOLVE U nivers [...] [place] C (B 52 Medical COMPLEX-VIT Branch RZAA C-FOLIC ACID ORAL) potassium 2020-0 Yes 20meq [...] by mouth ity of tablet 23:00: daily. [place] [address] Medical Branch atorvastati 2020-0 Yes 40mg Take 40 mg Univers n 40 mg 3-03 by mouth ity of tablet 23:00: at [place] [address] bedtime. Medical Branch NaCl 0.9% 2020-0 Yes [...] by ity of mEq packet 23:00: mouth [place] 52 daily. Medical Branch Cholecalcif 2020-0 Yes Take by Un mel ann, 3-03 mouth. ity of Vitamin D3, 23:00: [place] 2,000 unit 52 Medical capsule Branch metoprolol 2020-0 Yes 12.5mg Take 12.5 Univers tartrate 3-03 mg by ity of 12.5 mg 23:00: mouth 2 [place] 52 (two) Medical times Branch daily. MULTIVITAMI 2020-0 Yes Take by Un mel N ORAL 3-03 mouth. ity of 23:00: [place] [address] Medical Branch thiamine 2020-0 Yes 100mg Take 100 Univ ers (VITAMIN 3-03 mg by ity of B-1) 100 mg 23:00: mouth [place] tablet 52 daily. Medical Branch aspirin 81 2020-0 Yes 81mg Take 81 mg U nivers mg chewable 3-03 by mouth ity of tablet 23:00: daily. [place] [address] Medical Branch atorvastati 2020-0 Yes 40mg Take 40 mg Univers n 40 mg 3-03 by mouth ity of tablet 23:00: at [place] [address] bedtime. Medical Branch NaCl 0.9% 2020-0 Yes [...] N ORAL 3-03 mouth. ity of 23:00: [place] [address] Medical Branch thiamine 2020-0 Yes 100mg Take 100 Univ ers (VITAMIN 3-03 mg by ity of B-1) 100 mg 23:00: mouth [place] tablet 52 daily. Medical Branch aspirin 81 2020-0 Yes 81mg Take 81 mg U nivers mg chewable 3-03 by mouth ity of tablet 23:00: daily. [place] [address] Medical Branch atorvastati 2020-0 Yes 40mg Take 40 mg Univers n 40 mg 3-03 by mouth ity of tablet 23:00: at [place] 52 bedtime. Medical Branch NaCl 0.9% 2020-0 [...] 3-03 mouth. ity of Vitamin D3, 23:00: [place] 2,000 [place] [address] Medical capsule Branch metoprolol 2020-0 Yes 12.5mg Take 12.5 Univers tartrate 3-03 mg by ity of 12.5 mg 23:00: mouth 2 [place] 52 (two) Medical times Branch daily. MULTIVITAMI 2020-0 Yes Take by Un mel N ORAL 3-03 mouth. ity of 23:00: [place] [address] Medical Branch thiamine 2020-0 Yes 100mg Take 100 Univ ers (VITAMIN 3-03 mg by ity of B-1) 100 mg 23:00: mouth [facility] 52 daily. Medical Branch aspirin 81 2020-0 Yes 81mg Take 81 mg U nivers mg chewable 3-03 by mouth ity of tablet 23:00: daily. [place] [address] Medical Branch atorvastati 2020-0 Yes 40mg Take 40 mg Univers n 40 mg 3-03 by mouth ity of tablet 23:00: at [place] [address] bedtime. Medical Branch NaCl 0.9% 2020-0 Yes [...] First dose [place] mg 00 on [facility] 01/16/20 at Branch 2100, Until Discontinu ed, Routine ranolazine 2019-0 2020- No [id number] 500mg Take 1 [facility] 500 mg 12 01-16 04-03 tablet by ity of hr tablet 00:00: 04:59 mouth [place] 00 :00 every 12 Medical (twelve) Branch hours for 30 days. ranolazine 2019-0 2020- No [id number] 500mg Take 1 [facility] 500 mg 12 - 04-03 tablet by ity of hr tablet 00:00: 04:59 mouth [place] 00 :00 every 12 Medical (twelve) Branch hours for 30 days. ranolazine 2020-0 2020- No [id number] 500mg Take 1 [facility] 500 mg 01-16 tablet by ity of hr tablet 00:00: 04:59 mouth [place] 00 :00 every 12 Medical (twelve) Branch hours for 30 days. ranolazine 2020-0 2020- No [id number] 500mg Take 1 [facility] 500 mg 01-16 [...] IV Push, ity of (PF)) 07:55: Q6HPRN, [place] injection 4 01 Starting Medi birdie mg 01/16/20 Branch at 0155, Until Discontinu ed, Routine, Nausea and Vomiting (N/V) morpHINE 2019-0 2020- No 2mg 2 mg, Slow Un mel injection 2 01-15 03-03 IV Push, ity of mg 07:54: 07:53 Q6HPRN, [place] 55 :55 Starting Medical 01/16/20 Branch at [...] 3-02 Oral, ity of (TYLENOL) 07:54: Q6HPRN, [place] tablet 650 44 Starting Medic al mg [...] 01/15/20 at 2345, ADAMA furosemide 2018-11 Yes [id number] 40mg Take 1 [facility] 40 mg 0-26 tablet by ity of tablet 00:00: mouth [place] 00 daily. Medical Branch furosemide 2018-11 Yes [id number] 40mg Take 1 [facility] 40 mg 0-26 tablet by ity of tablet 00:00: mouth [place] 00 daily. Medical Branch furosemide 2018-11 Yes [id number] 40mg Take 1 Univers 40 mg 0-26 tablet by ity of tablet 00:00: mouth [place] 00 daily. Medical Branch furosemide 2018-11 Yes [id number] 40mg Take 1 Univers 40 mg 0-26 tablet by ity of tablet 00:00: mouth [place] 00 daily. Medical Branch furosemide 2018-11 2020- No [id number] 40mg Take 1 Univers 40 mg 0-26 04-17 tablet by ity of tablet 00:00: 00:00 mouth [place] 00 :00 daily. Medical Branch magnesium 2019-1 Yes [id number] 400mg Take 400 Univers oxide 420 0-23 mg by ity of mg Tab 00:00: mouth [place] 00 daily. Medical Branch magnesium 2019-1 Yes [id number] 400mg Take 400 Univers oxide 420 0-23 mg by ity of mg Tab 00:00: mouth [place] 00 daily. Medical Branch magnesium 2019-1 Yes [id number] 400mg Take 400 Univers oxide 420 0-23 mg by ity of mg Tab 00:00: mouth [place] 00 daily. Medical Branch magnesium 2019-1 Yes [id number] 400mg Take 400 Univers oxide 420 0-23 mg by ity of mg Tab 00:00: mouth [place] 00 daily. Medical Branch magnesium 2019-1 Yes [id number] 400mg Take 400 Univers oxide 420 0-23 mg by ity of mg Tab 00:00: mouth [place] 00 daily. [facility] Branch magnesium 2019-1 Yes [id number] 400mg Take 400 Univers oxide 420 0-23 mg by ity of mg Tab 00:00: mouth [place] 00 daily. [facility] Branch magnesium 2019- 2020- No [id number] 400mg Take 400 Univers oxide 420 0-23 04-22 mg by ity of mg Tab 00:00: 00:00 mouth [place] 00 :00 daily. [facility] Insulin 2019-0 Yes [id number] 30U inject 30 Univers Glargine 9-11 Units ity of 100 unit/mL 00:00: under the [place] (3 mL) 00 skin every Medical injection morning. Branch Insulin 2019-0 Yes [id number] 30U inject 30 Univers Glargine 9-11 Units ity of 100 unit/mL 00:00: under the [place] (3 mL) 00 skin every Medical injection morning. Branch Insulin 2019-0 Yes [id number] 30U inject 30 Univers Glargine 9-11 Units ity of 100 unit/mL 00:00: under the [place] (3 mL) 00 skin every Medical injection morning. Branch Insulin 2019-0 Yes [id number] 30U inject 30 Univers Glargine 9-11 Units ity of 100 unit/mL 00:00: under the [place] (3 mL) 00 skin every Medical injection morning. Branch Insulin 2019-0 Yes [id number] 30U inject 30 Univers Glargine 9-11 Units ity of 100 unit/mL 00:00: under the [place] (3 mL) 00 skin every Medical injection morning. Branch Insulin Yes [id number] 30U inject 30 Univers Glargine 9-11 Units ity of 100 unit/mL 00:00: under the [place] (3 mL) 00 skin every Medical injection morning. Branch Insulin Yes [id number] 30U inject 30 Univers Glargine 9-11 Units ity of 100 unit/mL 00:00: under the [place] (3 mL) 00 skin every Medical injection morning. Branch Insulin 2020- No [id number] 30U inject 30 Univers Glargine 9-11 04-22 [...] mg under ity of 15:26: the skin. [place] [address] Medical Branch Cholecalcif Yes Take by Un mel ann, 5-10 mouth. ity of Vitamin D3, 15:26: [place] 2,000 unit 43 Medical capsule Branch metoprolol Yes 12.5mg Take 12.5 Univers tartrate 5-10 mg by ity of 12.5 mg 15:26: mouth 2 [place] 43 (two) Medical times Branch daily. MULTIVITAMI Yes Take by Un mel N ORAL 5-10 mouth. ity of 15:26: [place] [address] Medical Branch thiamine Yes 100mg Take 100 Univ ers (VITAMIN 5-10 mg by ity of B-1) 100 mg 15:26: mouth [place] tablet 43 daily. Medical Branch aspirin 81 Yes 81mg Take 81 mg U nivers mg chewable 5-10 by mouth ity of tablet 15:26: daily. [place] [address] Medical Branch atorvastati Yes 40mg Take 40 mg Univers n 40 mg 5-10 by mouth ity of tablet 15:26: at [place] [address] bedtime. Medical Branch furosemide Yes 40mg Take 40 mg U nivers 40 mg 5-10 by mouth ity of tablet 15:26: daily. [place] [address] Medical Branch NaCl 0.9% 0 Yes 10mL [...] mg under ity of 15:26: the skin. [place] [address] Medical Branch Cholecalcif 0 Yes Take by Un mel ann, 5-10 mouth. ity of Vitamin D3, 15:26: [place] 2,000 unit Medical capsule Branch metoprolol Yes 12.5mg Take 12.5 Univers tartrate 5-10 mg by ity of 12.5 mg 15:26: mouth 2 [place] [address] (two) Medical times Branch daily. MULTIVITAMI 0 Yes Take by Un mel N ORAL 5-10 mouth. ity of 15:26: [place] [address] Medical Branch thiamine 0 Yes 100mg Take 100 Univ ers (VITAMIN 5-10 mg by ity of B-1) 100 mg 15:26: mouth [place] tablet 43 daily. Medical Branch aspirin 81 Yes 81mg Take 81 mg U nivers mg chewable 5-10 by mouth ity of tablet 15:26: daily. [place] [address] Medical Branch atorvastati 0 Yes 40mg Take 40 mg Univers n 40 mg 5-10 by mouth ity of tablet 15:26: at [place] [address] bedtime. Medical Branch furosemide 0 Yes 40mg Take 40 mg U nivers 40 mg 5-10 by mouth ity of tablet 15:26: daily. [place] [address] Medical Branch NaCl 0.9% 0 Yes 10mL Inject 10 Uni vers (NS) Soln 5-10 mL ity of 10 mL with 15:26: intravenou [place] sodium 43 sly once Medical chloride now. Branch 2.5 mEq/mL SolP 17.125 mEq insulin 2019-0 Yes [id number] 4U inject 4 U nivers lispro, 5-10 Units ity of human, 100 00:00: under the [place] unit/mL 00 skin 3 Medical injection (three) Branch times daily before meals. insulin 2018-0 Yes [id number] 4U inject 4 U nivers lispro, 5-10 Units ity of human, 100 00:00: under the [place] unit/mL 00 skin 3 Medical injection (three) Branch times daily before meals. insulin 2018-0 Yes [id number] 4U inject 4 U nivers lispro, 5-10 Units ity of human, 100 00:00: under the [place] unit/mL 00 skin 3 Medical injection (three) Branch times daily before meals. insulin 2018-0 Yes [id number] 4U inject 4 U nivers lispro, 5-10 Units ity of human, 100 00:00: under the [place] unit/mL 00 skin 3 Medical injection (three) Branch times daily before meals. insulin 2018-0 Yes [id number] 4U inject 4 U nivers lispro, 5-10 Units ity of human, 100 00:00: under the [place] unit/mL 00 skin 3 Medical injection (three) Branch times daily before meals. insulin 2018-0 Yes [id number] 4U inject 4 U nivers lispro, 5-10 Units ity of human, 100 00:00: under the [place] unit/mL 00 skin 3 Medical injection (three) Branch times daily before meals. Insulin 2018-0 Yes [id number] 18U inject Uni vers Glargine 5-10 18-24 ity of 100 unit/mL 00:00: Units [place] (3 mL) 00 under the Medical injection skin every Bran ch morning. insulin 2018-0 Yes [id number] 4U inject 4 U nivers lispro, 5-10 Units ity of human, 100 00:00: under the [place] unit/mL 00 skin 3 Medical injection (three) Branch times daily before meals. insulin 2018-0 Yes [id number] 4U inject 4 U nivers lispro, 5-10 Units ity of human, 100 00:00: under the [place] unit/mL 00 skin 3 Medical injection (three) Branch times daily before meals. insulin 2018-0 Yes [id number] 4U inject 4 U nivers lispro, 5-10 Units ity of human, 100 00:00: under the [place] unit/mL 00 skin 3 Medical injection (three) Branch times daily before meals. insulin 2018- Yes [id number] 4U inject 4 U nivers lispro, 5-10 Units ity of human, 100 00:00: under the [place] unit/mL 00 skin 3 Medical injection (three) Branch times daily before meals. insulin 2018- Yes [id number] 4U inject 4 U nivers lispro, 5-10 Units ity of human, 100 00:00: under the [place] unit/mL 00 skin 3 Medical injection (three) Branch times daily before meals. insulin 2019- No [id number] 4U inject 4 Univers lispro, 5-10 05-07 Units ity of human, 100 00:00: 00:00 under the [place] unit/mL 00 :00 skin 3 Medical injection (three) Branch times daily before meals. insulin 2019- No [id number] 4U inject 4 Univers lispro, 5-10 05-07 Units ity of human, 100 00:00: 00:00 under the [place] unit/mL 00 :00 skin 3 Medical injection (three) Branch times daily before meals. Insulin 2019- No [id number] 18U inject Un mel Glargine 03-25- 18-24 [...] by ity of mEq packet 16:39: mouth [place] 29 daily. Medical Branch Lyrica Lyrica Yes Anneliese 1 capsule Commo n [facility] [place] [facility] Potassium Potassium Yes Anneliese 1 capsule Common Chloride Chloride [facility] with food [place] [facility] Tylenol # 3 Tylenol # 3 Yes Anneliese one tab Common [facility] [place] [facility] Vitamin D-3 Vitamin D-3 Yes Anneliese 2 capsule Common Mill[facility] [place] [facility] Humalog Humalog Yes Anneliese as Common Millender directed [place] [facility] Aspir-Low Aspir-Low Yes Anneliese 1 tablet Common [facility] [place] [facility] Namzaric Namzaric Yes Anneliese 1 Common [facility] [place] [facility] Zyprexa Zyprexa Yes Anneliese 1 tablet Comm on Millender [place] [facility] Vitamin B-1 Vitamin B-1 Yes Anneliese 1 tablet Common Millender [place] [facility] [facility] Multivitami Multivitami Yes Anneliese as Common n n Millender directed [place] [facility] Lantus Lantus Yes Anneliese as Common Millender directed [place] Lasix Lasix Yes Anneliese 1 tablet Common [facility] [place] [facility] Isosorbide Isosorbide Yes Anneliese 1 tablet Common Mononitrate Mononitrate [facility] in the [facility] Immunizations Ordered Filled Immunization Date Status Comments [facility] e Immunization Name Name SARS-COV-2 COVID-19 2021-09-16 Completed Unive rsity of MODERNA VACCINE 00:00:00 [facility] SARS-COV-2 COVID-19 2021-09-16 Completed Unive rsity of MODERNA VACCINE 00:00:00 [facility] SARS-COV-2 COVID-19 2021-09-16 Completed Unive rsity of MODERNA VACCINE 00:00:00 [facility] SARS-COV-2 COVID-19 2021-09-16 Completed Unive rsity of MODERNA VACCINE 00:00:00 [facility] SARS-COV-2 COVID-19 2021-08-17 Completed Unive rsity of MODERNA VACCINE 00:00:00 [facility] Influenza High Dose 2021-08-17 Completed Unive rsity of 00:00:00 [facility] SARS-COV-2 COVID-19 2021-08-17 Completed Unive rsity of MODERNA VACCINE 00:00:00 [facility] Influenza High Dose 2021-08-17 Completed Unive rsity of 00:00:00 [facility] SARS-COV-2 COVID-19 2021-08-17 Completed Unive rsity of MODERNA VACCINE 00:00:00 [facility] Influenza High Dose 2021-08-17 Completed Unive rsity of 00:00:00 [facility] SARS-COV-2 COVID-19 2021-08-17 Completed Unive rsity of MODERNA VACCINE 00:00:00 [facility] Influenza High Dose 2021-08-17 Completed Unive rsity of 00:00:00 [facility] Zoster(Zostavax)( 2020-09-14 Completed Unive rsity of ingles) 00:00:00 [facility] Zoster(Zostavax)( 2020-09-14 Completed Unive rsity of ingles) 00:00:00 [facility] Zoster(Zostavax)( 2020-09-14 Completed Unive rsity of ingles) 00:00:00 [facility] Zoster(Zostavax)( 2020-09-14 Completed Unive rsity of ingles) 00:00:00 [facility] Influenza High Dose 2020-07-13 Completed Unive rsity of 00:00:00 [facility] Influenza High Dose 2020-07-13 Completed Unive rsity of 00:00:00 [facility] Influenza High Dose 2020-07-13 Completed Unive rsity of 00:00:00 [facility] Influenza High Dose 2020-07-13 Completed Unive rsity of 00:00:00 [facility] Influenza High Dose 2019-09-15 Completed Unive rsity of 00:00:00 [facility] Influenza High Dose 2019-09-15 Completed Unive rsity of 00:00:00 [facility] Influenza High Dose 2019-09-15 Completed Unive rsity of 00:00:00 [facility] Influenza High Dose 2019-09-15 Completed Unive rsity of 00:00:00 [facility] Influenza Virus 2018-09-09 Completed Universit y of Vaccine 00:00:00 [facility] Influenza Virus 2018-09-09 Completed Universit y of Vaccine 00:00:00 [facility] Influenza Virus 2018-09-09 Completed Universit y of Vaccine 00:00:00 [facility] Influenza Virus 2018-09-09 Completed Universit y of Vaccine 00:00:00 [facility] Influenza Virus 2018-09-09 Completed Universit y of Vaccine 00:00:00 [facility] Influenza Virus 2018-09-09 Completed Universit y of Vaccine 00:00:00 [facility] Influenza Virus 2018-09-09 Completed Universit y of Vaccine 00:00:00 [facility] Influenza Virus 2018-09-09 Completed Universit y of Vaccine 00:00:00 [facility] Influenza Virus 2018-09-09 Completed Universit y of Vaccine 00:00:00 [facility] Influenza Virus 2018-09-09 Completed Universit y of Vaccine 00:00:00 [facility] Influenza Virus 2018-09-09 Completed Universit y of Vaccine 00:00:00 [facility] Influenza Virus 2018-09-09 Completed Universit y of Vaccine 00:00:00 [facility] Influenza Virus 2018-09-09 Completed Universit y of Vaccine 00:00:00 [facility] Influenza Virus 2018-09-09 Completed Universit y of Vaccine 00:00:00 [facility] Influenza Virus 2018-09-09 Completed Universit y of Vaccine 00:00:00 [facility] Influenza Virus 2018-09-09 Completed Universit y of Vaccine 00:00:00 [facility] Influenza Virus 2018-09-09 Completed Universit y of Vaccine 00:00:00 [facility] Influenza Virus 2018-09-09 Completed Universit y of Vaccine 00:00:00 [facility] Influenza Virus 2018-09-09 Completed Universit y of Vaccine 00:00:00 [facility] Influenza Virus 2018-09-09 Completed Universit y of Vaccine 00:00:00 [facility] Influenza Virus 2018-09-09 Completed Universit y of Vaccine 00:00:00 [facility] Influenza Virus 2018-09-09 Completed Universit y of Vaccine 00:00:00 [facility] Pneumococcal 2016-11-02 Completed University o f Polysaccharide, 00:00:00 [facility] [place] PPSV23 (PNEUMOVAX) [place] Pneumococcal 2016-11-02 Completed University o f Polysaccharide, [...] ical PPSV23 (PNEUMOVAX) Branch Pneumococcal 2016-11-02 Completed [facility] f Polysaccharide, 00:00:00 [place] Med ical PPSV23 (PNEUMOVAX) Branch Pneumococcal 2016-11-02 Completed University o f Polysaccharide, 00:00:00 [place] Med ical PPSV23 (PNEUMOVAX) Branch Pneumococcal 2016-11-02 Completed University o f Polysaccharide, 00:00:00 [place] Med ical PPSV23 (PNEUMOVAX) Branch Pneumococcal 2016-11-02 Completed [facility] o f Polysaccharide, 00:00:00 [place] Med ical PPSV23 (PNEUMOVAX) Branch Vital Signs Vital Name Observation Time Observation Value Comments Source Systolic blood 2022-03-01 16:36:00 143 mm[Hg] Univer sity of pressure [facility] Diastolic blood 2022-03-01 16:36:00 80 mm[Hg] Unive rsity of [facility] Heart rate 2022-03-01 16:36:00 98 /min [facility] Respiratory rate 2022-03-01 16:36:00 16 /[facility] 2022-03-01 16:36:00 97 /min [facility] Arterial blood by [employer] Pulse oximetry Branch Body temperature 2022-03-01 11:42:00 36.94 [facility] Body height 2022-03-01 11:42:00 170.2 cm [facility] Body weight 2022-03-01 11:42:00 77.111 kg [facility] BMI 2022-03-01 11:42:00 26.63 kg/m2 [facility] Systolic blood 2021-11-02 17:17:00 109 mm[Hg] Univer sity of [facility] Diastolic blood 2021-11-02 17:17:00 67 mm[Hg] Unive rsity of [facility] Heart rate 2021-11-02 17:17:00 84 /min [facility] Body temperature 2021-11-02 17:17:00 36.44 [facility] 2021-11-02 17:17:00 18 /[facility] O[facility] in 2021-11-02 17:17:00 95 /min University of Arterial blood by [place] [employer] Pulse oximetry Branch Body weight 2021-11-02 09:17:00 79.969 kg [facility]i [facility] [place] [facility] BMI 2021-11-02 09:17:00 27.61 kg/m2 [facility] [place] [facility] Body height 2021-10-31 05:46:00 170.2 cm [facility] [place] [facility] Systolic blood 2021-04-25 22:36:00 118 mm[Hg] Univer sity of pressure [place] [facility] Diastolic blood 2021-04-25 22:36:00 70 mm[Hg] Unive rsity of pressure [place] [facility] Heart rate 2021-04-25 22:36:00 68 /min [facility]i ty [facility] [place] [facility] Respiratory rate 2021-04-25 22:36:00 18 /min Univ ersity of [place] [facility] Oxygen saturation in 2021-04-25 22:36:00 99 /min University of Arterial blood by [place] [employer] Pulse oximetry Branch Body temperature 2021-04-25 15:42:00 36.44 Priyanka Univ ersity of [place] [facility] Body weight 2021-04-25 15:42:00 81.647 kg [facility]i [facility] [place] [facility] BMI 2021-04-25 15:42:00 27.37 kg/m2 [facility] [place] [facility] Systolic blood 2020-06-26 10:00:00 124 mm[Hg] Univer sity of pressure [place] [facility] Diastolic blood 2020-06-26 10:00:00 78 mm[Hg] Unive rsity of pressure [place] [facility] Respiratory rate 2020-06-26 10:00:00 18 /min Univ ersity of [place] [facility] Oxygen saturation in 2020-06-26 10:00:00 98 /min University of Arterial blood by [place] [employer] Pulse oximetry Branch Heart rate 2020-06-26 08:56:00 98 /min Universi ty [facility] [place] [facility] Body temperature 2020-06-26 08:56:00 37.17 Priyanka Univ ersity of [place] [facility] Body weight 2020-06-26 08:56:00 74.844 kg [facility]i [facility] [place] [facility] BMI 2020-06-26 08:56:00 25.09 kg/m2 [facility] [place] [facility] Systolic blood 2020-06-26 10:00:00 124 mm[Hg] Univer sity of pressure [place] [facility] Diastolic blood 2020-06-26 10:00:00 78 mm[Hg] Unive rsity of pressure [place] [facility] Respiratory rate 2020-06-26 10:00:00 18 /min Univ ersity of [place] [facility] Oxygen saturation in 2020-06-26 10:00:00 98 /min University of Arterial blood by [facility] Pulse oximetry Branch Heart rate 2020-06-26 08:56:00 98 /min Universi ty of [place] [facility] Body temperature 2020-06-26 08:56:00 37.17 Priyanka Univ ersity of [place] [facility] Body weight 2020-06-26 08:56:00 74.844 kg Universi ty [facility] [place] [facility] BMI 2020-06-26 08:56:00 25.09 kg/m2 [facility] [place] [facility] Systolic blood 2020-05-24 15:47:29 166 mm[Hg] Univer sity of pressure [place] [facility] Diastolic blood 2020-05-24 15:47:29 89 mm[Hg] Unive rsity of pressure [place] [facility] Heart rate 2020-05-24 15:47:29 86 /min Universi ty of [place] [facility] Respiratory rate 2020-05-24 15:47:29 16 /min Univ ersity of [place] [facility] Oxygen saturation in 2020-05-24 15:47:29 97 /min University of Arterial blood by [facility] Pulse oximetry Branch Body temperature 2020-05-24 11:44:00 36.94 Priyanka Univ ersity of [place] [facility] Body height 2020-05-24 11:44:00 172.7 cm Universi ty [facility] [place] [facility] Body weight 2020-05-24 11:44:00 74.844 kg Universi ty of [place] [facility] BMI 2020-05-24 11:44:00 25.09 kg/m2 [facility]i ty [facility] [place] [facility] Systolic blood 2020-05-24 15:47:29 166 mm[Hg] Univer sity of pressure [place] [facility] Diastolic blood 2020-05-24 15:47:29 89 mm[Hg] Unive rsity of pressure [place] [facility] Heart rate 2020-05-24 15:47:29 86 /min Universi ty of [place] [facility] Respiratory rate 2020-05-24 15:47:29 16 /min Univ ersity of [place] [facility] Oxygen saturation in 2020-05-24 15:47:29 97 /min University of Arterial blood by [facility] Pulse oximetry Branch Body temperature 2020-05-24 11:44:00 36.94 Priyanka Univ ersity of [place] [facility] Body height 2020-05-24 11:44:00 172.7 cm Universi [facility] [place] [facility] Body weight 2020-05-24 11:44:00 74.844 kg [facility]i [facility] [place] [facility] BMI 2020-05-24 11:44:00 25.09 kg/m2 [facility] [place] [facility] Systolic blood 2020-03-24 02:31:00 127 mm[Hg] Univer sity of pressure [place] [facility] Diastolic blood 2020-03-24 02:31:00 72 mm[Hg] Unive rsity of pressure [facility] [place] [facility] Heart rate 2020-03-24 02:31:00 69 /min Universi ty of [place] [facility] [place] Body temperature 2020-03-24 02:31:00 36.39 Priyanka Univ ersity of [facility] [place] [facility] Respiratory rate 2020-03-24 02:31:00 18 /min Univ ersity of [facility] [place] [facility] Oxygen saturation in 2020-03-24 02:31:00 97 /min University of Arterial blood by [facility] Pulse oximetry Branch Systolic blood 2020-03-23 21:35:00 100 mm[Hg] Univer sity of pressure [place] [facility] Diastolic blood 2020-03-23 21:35:00 59 mm[Hg] Unive rsity of pressure [place] [facility] Heart rate 2020-03-23 21:35:00 79 /min Universi ty of [facility] Body temperature 2020-03-23 21:35:00 36.78 Priyanka Univ ersity of [facility] [place] [facility] Respiratory rate 2020-03-23 21:35:00 18 /min Univ ersity of [place] [facility] Oxygen saturation in 2020-03-23 21:35:00 99 /min University of Arterial blood by [facility] Pulse oximetry Branch Body weight 2020-03-23 09:41:00 76.613 kg Universi ty of [place] [facility] BMI 2020-03-23 09:41:00 26.45 kg/m2 [facility] [place] [facility] Body height 2020-03-23 03:43:00 170.2 cm [facility] [place] [facility] Systolic blood 2020-03-21 20:55:00 128 mm[Hg] Univer sity of pressure [place] [facility] Diastolic blood 2020-03-21 20:55:00 61 mm[Hg] Unive rsity of pressure [place] [facility] Heart rate 2020-03-21 20:55:00 75 /min Universi ty [facility] [place] [facility] Respiratory rate 2020-03-21 20:55:00 10 /min Univ ersity of [place] [facility] Oxygen saturation in 2020-03-21 20:55:00 98 /min University of Arterial blood by [facility] Pulse oximetry Branch Body temperature 2020-03-21 20:03:00 37.83 Priyanka Univ ersity of [place] [facility] Body height 2020-03-21 20:03:00 170.2 cm [facility]i ty [facility] [place] [facility] Body weight 2020-03-21 20:03:00 76.204 kg [facility] [place] [facility] BMI 2020-03-21 20:03:00 26.31 kg/m2 [facility] [place] [facility] Systolic blood 2020-03-07 20:50:00 118 mm[Hg] Univer sity of pressure [place] [facility] Diastolic blood 2020-03-07 20:50:00 65 mm[Hg] Unive rsity of pressure [place] [facility] Heart rate 2020-03-07 20:50:00 85 /min [facility]i [facility] [place] [facility] Body temperature 2020-03-07 20:50:00 36.39 Priyanka Univ ersity of [place] [facility] Respiratory rate 2020-03-07 20:50:00 18 /min Univ ersity of [place] [facility] Oxygen saturation in 2020-03-07 20:50:00 95 /min University of Arterial blood by [facility] Pulse oximetry Branch Body height 2020-03-05 02:35:00 172.7 cm [facility]i [facility] [place] [facility] Body weight 2020-03-05 02:35:00 73.483 kg [facility] [place] [facility] BMI 2020-03-05 02:35:00 24.63 kg/m2 [facility] [place] [facility] Systolic blood 2020-03-02 15:49:00 122 mm[Hg] Univer sity of pressure [place] [facility] Diastolic blood 2020-03-02 15:49:00 81 mm[Hg] Unive rsity of pressure [place] [facility] Heart rate 2020-03-02 15:49:00 89 /min [facility]i ty [facility] [place] [facility] Body temperature 2020-03-02 15:49:00 37.06 Priyanka [facility] Respiratory rate 2020-03-02 15:49:00 19 /min [facility] in 2020-03-02 15:49:00 96 /min University of Arterial blood by [facility] Pulse oximetry Branch Body height 2020-03-01 00:54:00 170.2 cm Universi ty of [facility] Body weight 2020-03-01 00:54:00 76.975 kg Universi ty of [facility] BMI 2020-03-01 00:54:00 26.58 kg/m2 Universi ty of [facility] Systolic blood 2020-01-17 21:08:00 116 mm[Hg] Univer sity of pressure [facility] Diastolic blood 2020-01-17 21:08:00 78 mm[Hg] [facility] Heart rate 2020-01-17 21:08:00 88 /min Universi ty [facility] [place] [facility] Body temperature 2020-01-17 21:08:00 36.72 Priyanka [facility] Respiratory rate 2020-01-17 21:08:00 18 /min [facility] Oxygen saturation in 2020-01-17 21:08:00 98 /min [facility] of Arterial blood by [facility] Pulse oximetry Branch Body height 2020-01-16 06:21:00 172.7 cm Universi ty [facility] Body weight 2020-01-16 04:35:00 83.462 kg Universi ty [facility] BMI 2020-01-16 04:35:00 27.98 kg/m2 [facility] Procedures Procedure Date / Time Performing Clinician Source Performed XR LUMBAR SPINE 2 VW 2022-03-01 14:18:00 Angelika Aguilar [facility] EXTERNAL PROVIDER RECORDS 2021-11-19 06:01:00 Doctor Unassigned, [facility] [place] [facility] POCT GLUCOSE (AUTOMATED) 2021-11-02 22:49:00 Aida Shah [facility] POCT GLUCOSE (AUTOMATED) 2021-11-02 17:06:00 Aida Shah [facility] POCT GLUCOSE (AUTOMATED) 2021-11-02 13:30:00 Aida Shah [facility] TROPONIN I 2021-11-02 09:29:00 Alexandra Hdz [facility] BASIC METABOLIC PANEL 2021-11-02 09:29:00 [facility] (NA, K, CL, CO2, GLUCOSE, Medica l Branch BUN, CREATININE, CA) CBC WITH DIFF 2021-11-02 09:29:00 [facility] N-TERMINAL PRO-BNP 2021-11-02 09:29:00 Aelxandra Hdz [facility] POCT GLUCOSE (AUTOMATED) 2021-11-02 01:27:00 Aida Shah [facility] POCT GLUCOSE (AUTOMATED) 2021-11-01 17:37:00 Aida Shah [facility] POCT GLUCOSE (AUTOMATED) 2021-11-01 13:40:00 [facility] ([facility]OM[facility]) 2021-11-01 01:10:00 Aida Shah [facility] POCT GLUCOSE (AUTOMATED) 2021-10-31 22:28:00 [facility] PO[facility] GLUCOSE (AUTOMATED) 2021-10-31 17:29:00 Martha Drake [facility] TROPONIN I 2021-10-31 16:25:00 Alexandra Hdz [facility] TRANSTHORACIC ECHO (TTE) 2021-10-31 15:53:00 Alexandra Hdz [facility] COMPLETE W/ CONTRAST [facility] POCT GLUCOSE (AUTOMATED) 2021-10-31 13:39:00 Martha Drake [facility] TROPONIN I 2021-10-31 10:08:00 [facility] BASIC METABOLIC PANEL 2021-10-31 10:08:00 [facility] (NA, K, CL, CO2, GLUCOSE, Medica l Branch BUN, CREATININE, CA) LIPID PANEL ([id number])(TOTAL 2021-10-31 10:08:00 Alexandra Hdz [facility] CHOLESTEROL, [facility] TRIGLYCERIDES, HDL) CBC WITH DIFF 2021-10-31 10:08:00 [facility] 2021-10-31 10:08:00 [facility] N-TERMINAL PRO-BNP 2021-10-31 10:08:00 Alexandra Hdz [facility] TROPONIN I 2021-10-31 06:17:00 [facility]ST 1 VW 2021-10-31 01:30:56 Martha Drake [facility] LIPASE 2021-10-31 01:25:00 Martha Drake [facility] TROPONIN I 2021-10-31 01:25:00 Martha Drake [facility] COMP. METABOLIC PANEL 2021-10-31 01:25:00 Martha Drake [facility] ([id number]) [facility] Branch CBC WITH DIFF 2021-10-31 01:25:00 Martha Drake [facility] GLYCOSYLATED HEMOGLOBIN 2021-10-31 01:25:00 [facility] PROTHROMBIN TIME / INR 2021-10-31 01:25:00 Martha Drake [facility] ACTIVATED PARTIAL 2021-10-31 01:25:00 Martha Drake [facility]-TERMINAL PRO-BNP 2021-10-31 01:25:00 Martha Drake [facility] COVID-19 (ID NOW RAPID 2021-10-31 01:25:00 Martha Drake [facility] TESTING) Medical Branch LAB ONLY COVID 2021-10-31 01:25:00 Martha Drake [facility] INTERPRETATION [facility] HB ECG ROUTINE & RHYTHM 2021-10-31 01:20:03 Martha Drake [facility] STRIP [facility] URINALYSIS 2021-04-25 21:01:00 Nallely Zhao [facility] XR LUMBAR SPINE 2 VW 2021-04-25 18:41:00 Nallely Zhao [facility] XR HIPS 2 VW LEFT 2021-04-25 18:41:00 Nallely Zhao [facility] CONSENT/REFUSAL FOR 2021-04-25 15:43:06 Doctor Unacassie, [facility] DIAGNOSIS AND TREAT[facility] CERVICAL SPINE WO 2020-06-26 09:35:01 NandinideMartha [facility] CONTRAST [facility] CT LUMBAR SPINE WO 2020-06-26 09:35:01 [facility] CT THORACIC SPINE WO 2020-06-26 09:35:01 [facility] UNILATERAL DUPLEX SCAN OF 2020-05-24 14:53:40 [facility] LAB Medical B ranch XR ANKLE 3+ VW LEFT 2020-05-24 13:22:26 Charanjit Heck [facility] HEPATIC FUNCTION PANEL 2020-05-24 13:13:00 Charanjit Heck [facility] ([id number]) (ALB,T.PRO,BILI Medical Branch T,BU/BC,ALT,AST,ALK PHOS) BASIC METABOLIC PANEL 2020-05-24 13:13:00 Charanjit Heck [facility] (NA, K, CL, CO2, GLUCOSE, Medica l Branch BUN, CREATININE, CA) CBC WITH DIFFERENTIAL 2020-05-24 13:13:00 Charanjit Heck [facility] PROTHROMBIN TIME / INR 2020-05-24 13:13:00 Charanjit Heck [facility] ACTIVATED PARTIAL 2020-05-24 13:13:00 Charanjit Heck [facility] NOTICE OF PRIVACY 2020-05-24 11:38:26 Doctor Blaise, [facility] PRACTICES [facility] CONSENT/REFUSAL FOR 2020-05-24 11:35:52 Doctor Blaise, [facility] DIAGNOSIS [facility] T[facility] POCT GLUCOSE (AUTOMATED) 2020-03-23 22:32:00 CharismaLuanazra Horn [facility] POCT GLUCOSE (AUTOMATED) 2020-03-23 18:07:00 Jamel Flores Justina [facility] POCT GLUCOSE (AUTOMATED) 2020-03-23 14:57:00 Jamel Flores [facility] ECHO ROUTINE W/DOPPLER 2020-03-23 13:33:57 Tereza [facility]o [facility] EKG-12 LEAD 2020-03-23 12:56:59 Charisma [facility] MAGNESIUM 2020-03-23 11:15:00 Jerome [facility] TROPONIN I 2020-03-23 11:15:00 [facility] BASIC METABOLIC PANEL 2020-03-23 11:15:00 [facility] (NA, K, CL, CO2, GLUCOSE, Medica l Branch BUN, CREATININE, CA) PROTHROMBIN TIME / INR 2020-03-23 11:15:00 Tereza Caon [facility] ACTIVATED PARTIAL 2020-03-23 11:15:00 Jerome [facility] EKG-12 LEAD 2020-03-23 07:51:19 [facility] MAGNESIUM 2020-03-23 05:55:00 [facility] TROPONIN I 2020-03-23 05:55:00 [facility] BASIC METABOLIC PANEL 2020-03-23 05:55:00 Jerome [facility] (NA, K, CL, CO2, GLUCOSE, Medica l Branch BUN, CREATININE, CA) LIPID PANEL (75301)(TOTAL 2020-03-23 05:55:00 Tereza Cano [facility] TRIGLYCERIDES, HDL) PROTHROMBIN TIME / INR 2020-03-23 02:55:00 Sallie Eckert [facility] ACTIVATED PARTIAL 2020-03-23 02:55:00 Sallie Eckert [facility] XR CHEST 2 VW 2020-03-23 01:52:37 Danielle [facility] CORONAVIRUS COVID-19 2020-03-23 00:50:00 Esteban Singletary [facility] FERRITIN SERUM 2020-03-22 23:36:00 Jerome [facility] TROPONIN I 2020-03-22 23:36:00 Danielle [facility] COMP. METABOLIC PANEL 2020-03-22 23:36:00 Esteban Singletary [facility] ([id number]) [facility] IRON PANEL 2020-03-22 23:36:00 Jerome [facility] CBC WITH DIFFERENTIAL 2020-03-22 23:36:00 Danielle [place] N-TERMINAL PRO-BNP 2020-03-22 23:36:00 Esteban Singletary [facility] EKG-12 LEAD 2020-03-22 23:08:53 Danielle [facility] EKG-12 LEAD 2020-03-22 23:08:15 Danielle [facility] XR CHEST 1 VW 2020-03-21 20:42:35 Myles Harry [facility] LACTIC ACID WHOLE BLOOD 2020-03-21 20:38:00 Myles Harry [facility] LIPASE 2020-03-21 20:19:00 Myles Harry [facility] TROPONIN I 2020-03-21 20:19:00 Myles Harry [facility] COMP. METABOLIC PANEL 2020-03-21 20:19:00 Myles Harry [facility] ([id number]) [facility] PROTHROMBIN TIME / INR 2020-03-21 20:19:00 Myles Harry [facility] N-TERMINAL PRO-BNP 2020-03-21 20:19:00 Myles Harry [facility] CORONAVIRUS COVID-19 2020-03-21 20:19:00 Myles [facility] EKG-12 LEAD 2020-03-21 20:11:28 Myles Harry [facility] POCT GLUCOSE (AUTOMATED) 2020-03-07 20:56:00 Julio CesarSarah [facility] POCT GLUCOSE (AUTOMATED) 2020-03-07 15:34:00 Julio CesarSarah [facility] POCT GLUCOSE (AUTOMATED) 2020-03-07 12:56:00 Julio Cesar [facility] URIC ACID 2020-03-07 10:14:00 Holland Garza [facility] TROPONIN I 2020-03-07 10:14:00 Steven [facility] BASIC METABOLIC PANEL 2020-03-07 10:14:00 Julio Cesar [facility] (NA, K, CL, CO2, GLUCOSE, Medica l Branch BUN, CREATININE, CA) CBC WITH DIFFERENTIAL 2020-03-07 10:14:00 Julio Cesar [facility] N-TERMINAL PRO-BNP 2020-03-07 10:14:00 Lulu Harris [facility] POCT GLUCOSE (AUTOMATED) 2020-03-06 21:16:00 [facility] POCT GLUCOSE (AUTOMATED) 2020-03-06 16:10:00 Julio Cesar [facility] POCT GLUCOSE (AUTOMATED) 2020-03-06 12:38:00 Julio Cesar [facility] TROPONIN I 2020-03-06 08:51:00 Steven [facility] BASIC METABOLIC PANEL 2020-03-06 08:51:00 Julio Cesar [facility] (NA, K, CL, CO2, GLUCOSE, Medica l Branch BUN, CREATININE, CA) CBC WITH DIFFERENTIAL 2020-03-06 08:51:00 [facility] PO[facility] GLU[facility]SE (AUTOMATED) 2020-03-06 01:16:00 Julio Cesar [facility] TROPONIN I 2020-03-05 23:25:00 Julio Cesar [facility] POCT GLUCOSE (AUTOMATED) 2020-03-05 21:14:00 Julio Cesar [facility] POCT GLUCOSE (AUTOMATED) 2020-03-05 16:39:00 [facility] POCT GLUCOSE (AUTOMATED) 2020-03-05 12:47:00 Julio Cesar [facility] TROPONIN I 2020-03-05 09:50:00 [facility] BASIC METABOLIC PANEL 2020-03-05 09:50:00 [facility] (NA, K, CL, CO2, GLUCOSE, Medica l Branch BUN, CREATININE, CA) CBC WITH DIFFERENTIAL 2020-03-05 09:50:00 [facility] EKG-12 LEAD 2020-03-05 00:36:54 [facility] 2020-03-05 00:31:03 [facility] CORONAVIRUS COVID-19 2020-03-05 00:03:00 Charanjit Heck [facility] XR CHEST 1 VW 2020-03-04 23:58:59 Charanjit Heck [facility] LIPASE 2020-03-04 23:29:00 Umang Charanjit [facility] TROPONIN I 2020-03-04 23:29:00 [facility] HospitalCharanjit [facility] HEPATIC FUNCTION PANEL 2020-03-04 23:29:00 Charanjit Heck [facility] ([id number]) (ALB,T.PRO,BILI [facility] Branch T,BU/BC,ALT,AST,ALK PHOS) BASIC METABOLIC PANEL 2020-03-04 23:29:00 Charanjit Heck [facility] (NA, K, CL, CO2, GLUCOSE, Medica l Branch BUN, CREATININE, CA) CBC WITH DIFFERENTIAL 2020-03-04 23:29:00 Charanjit Heck [facility] PROTHROMBIN TIME / INR 2020-03-04 23:29:00 Charanjit Heck [facility] ACTIVATED PARTIAL 2020-03-04 23:29:00 Charanjit Heck [facility] N-TERMINAL PRO-BNP 2020-03-04 23:29:00 Umang Charanjit [facility] EKG-12 LEAD 2020-03-04 23:15:42 Umang [facility] EKG-12 LEAD 2020-03-04 23:10:23 Umang [facility] EMERGENCY DEPARTMENT 2020-03-04 05:01:00 Doctor Unassigned, [facility] DOCUMENTS [place] [facility] POCT GLUCOSE (AUTOMATED) 2020-03-02 15:52:00 Lulu Harris [facility] POCT GLUCOSE (AUTOMATED) 2020-03-02 12:39:00 Lulu Harris [facility] MAGNESIUM 2020-03-02 08:57:00 Carolyn [facility] BASIC METABOLIC PANEL 2020-03-02 08:57:00 Carolyn alek [facility] (NA, K, CL, CO2, GLUCOSE, Medica l Branch BUN, CREATININE, CA) N-TERMINAL PRO-BNP 2020-03-02 08:57:00 Ivory Leon [facility] POCT GLUCOSE (AUTOMATED) 2020-03-01 20:39:00 Lulu Harris [facility] MAGNESIUM 2020-03-01 08:43:00 Lulu Harris [facility] TROPONIN I 2020-03-01 08:43:00 Carolyn alek [facility] BASIC METABOLIC PANEL 2020-03-01 08:43:00 Lulu Harris [facility] (NA, K, CL, CO2, GLUCOSE, Medica l Branch BUN, CREATININE, CA) CBC WITH DIFFERENTIAL 2020-03-01 08:43:00 Lulu Harris [facility] N-TERMINAL PRO-BNP 2020-03-01 08:43:00 Carolyn alek [facility] VITAMIN B12, LEVEL 2020-03-01 03:49:00 Carolyn [facility] FOLATE 2020-03-01 03:49:00 Carolyn alek [facility] SEDIMENTATION RATE 2020-03-01 03:49:00 Carolyn [facility] POCT GLUCOSE (AUTOMATED) 2020-03-01 03:39:00 Lulu Harris [facility] PHOSPHORUS 2020-03-01 02:28:00 Lulu Harris [facility] URIC ACID 2020-03-01 02:28:00 Carolyn [facility] TROPONIN I 2020-03-01 02:28:00 Carolyn [facility] HEPATIC FUNCTION PANEL 2020-03-01 02:28:00 Ivory Leon [facility] ([id number]) (AL[facility] T,BU/BC,ALT,AST,ALK PHOS) PROTHROMBIN TIME / INR 2020-03-01 02:28:00 Carolyn alek [facility] N-TERMINAL PRO-BNP 2020-03-01 02:28:00 Lulu Harris [facility] PROCALCITONIN 2020-03-01 02:28:00 Carolyn [facility] EKG-12 LEAD 2020-03-01 01:54:29 Carolyn [facility] EKG-12 LEAD 2020-02-29 23:16:21 Bobo Urrutia [facility] XR CHEST 1 VW COVID 2020-02-29 23:14:25 Bobo Urrutia [facility] EKG-12 LEAD 2020-02-29 23:13:50 Bobo Urrutia [facility] LACTIC ACID WHOLE BLOOD 2020-02-29 22:21:00 Bobo Urrutia [facility] CORONAVIRUS COVID-19 2020-02-29 22:20:00 Bobo Urrutia [facility] CREATINE KINASE 2020-02-29 22:14:00 Carolyn [facility] URIC ACID 2020-02-29 22:14:00 Carolyn [facility] LIPASE 2020-02-29 22:14:00 Bobo Urrutia [facility] MAGNESIUM 2020-02-29 22:14:00 Carolyn [facility] TROPONIN I 2020-02-29 22:14:00 Bobo Urrutia [facility] THYROID STIMULATING 2020-02-29 22:14:00 Carolyn alek [facility] HORMONE [facility] BASIC METABOLIC PANEL 2020-02-29 22:14:00 Bobo Urrutia [facility] (NA, K, CL, CO2, GLUCOSE, Medica l Branch BUN, CREATININE, CA) CBC WITH DIFFERENTIAL 2020-02-29 22:14:00 Bobo Urrutia [facility] GLYCOSYLATED HEMOGLOBIN 2020-02-29 22:14:00 [facility] N-TERMINAL PRO-BNP 2020-02-29 22:14:00 Carolyn [facility] EKG-12 LEAD 2020-02-29 21:59:12 [facility] E[facility]-12 LEAD 2020-02-29 21:48:49 Bobo [facility] EMERGENCY DEPARTMENT 2020-02-29 05:01:00 Doctor Unassigned, [facility] DOCUMENTS [place] [facility] POCT GLUCOSE (AUTOMATED) 2020-01-17 18:15:00 Julio Cesar [facility] TROPONIN I 2020-01-17 16:31:00 Julio Cesar [facility] ACTIVATED PARTIAL 2020-01-17 16:31:00 Carolyn [facility] POCT GLUCOSE (AUTOMATED) 2020-01-17 11:56:00 [facility] TROPONIN I 2020-01-17 09:52:00 Julio Cesar [facility] BASIC METABOLIC PANEL 2020-01-17 09:52:00 Julio Cesar [facility] (NA, K, CL, CO2, GLUCOSE, Medica l Branch BUN, CREATININE, CA) CBC WITH DIFFERENTIAL 2020-01-17 09:52:00 Julio Cesar [facility] ACTIVATED PARTIAL 2020-01-17 09:52:00 Julio Cesar [facility] POCT GLUCOSE (AUTOMATED) 2020-01-16 23:59:00 Julio Cesar [facility] EKG-12 LEAD 2020-01-16 22:15:50 [facility] 2020-01-16 20:04:00 [facility] ACT[facility] PARTIAL 2020-01-16 20:04:00 Kael [facility] POCT GLUCOSE (AUTOMATED) 2020-01-16 17:05:00 [facility] ([facility]OMATED) 2020-01-16 13:38:00 [facility] TROPONIN I 2020-01-16 11:11:00 [facility] center[facility] LIPID PANEL ([id number])(TOTAL 2020-01-16 11:11:00 [facility] center[facility]LE[facility] TRIGLYCERIDES, HDL) ACTIVATED PARTIAL 2020-01-16 11:11:00 [facility] 2020-01-16 05:48:18 Umang [facility] XR CHEST 1 VW 2020-01-16 04:46:44 [facility] 2020-01-16 04:38:00 [facility] HEPATIC FUNCTION PANEL 2020-01-16 04:38:00 Charanjit Heck [facility] ([id number]) (ALB,T.PRO,BILI Medical Branch T,BU/BC,ALT,AST,ALK PHOS) BASIC METABOLIC PANEL 2020-01-16 04:38:00 Charanjit Heck [facility] (NA, K, CL, CO2, GLUCOSE, Medica l Branch BUN, CREATININE, CA) CBC WITH DIFFERENTIAL 2020-01-16 04:38:00 Charanjit Heck [facility] GLYCOSYLATED HEMOGLOBIN 2020-01-16 04:38:00 [facility] PROTHROMBIN TIME / INR 2020-01-16 04:38:00 Charanjit Heck [facility] ACTIVATED PARTIAL 2020-01-16 04:38:00 Charanjit Heck [facility] N-TERMINAL PRO-BNP 2020-01-16 04:38:00 Charanjit Heck [facility] EKG-12 LEAD 2020-01-16 04:37:48 Umang Charanjit [facility] EKG-12 LEAD 2020-01-16 04:35:35 Umang Charanjit [facility] AUTHORIZATION FOR RELEASE 2019-07-12 05:01:00 Doctor Unassigned, [facility] [place] [facility] Encounters Start End Encounter Admission Attending Care Care Encounter Source Date/Time Date/Time Type Type Clinicians Facility Department ID 2022-03-[address] [facility] [id number] [place] 08:51:10 [id number] [facility] 2021-12-16 [facility] [id number] 11:30:00 [facility] 2021-12-16 Outpatient [facility] [id number] [place] 09:19:01 [place] [facility] 2021-12-11 Outpatient Millender, [facility] [id number] Common 14:38:21 Anneliese [facility] 2021-12-11 Outpatient Millender, STLMLC [facility] [id number] Common 11:50:18 Anneliese [address]67 [facility] 2021-09-16 Emergency [facility] [id number] Univers 00:23:34 ity [facility] 2021-09-13 Emergency [facility] [id number] Univers 11:42:35 ity [facility] 2021-09-13 Emergency [facility] [id number] Univers [facility]:40[facility]05 2022-03-10 Inpatient U BLADE [facility] CAR [id number] [facility] 06:12:00 22:30:00 BRODIE 2022-03-01 2022-03-01 Emergency X [facility] ERT [id number] Univers 06:52:00 12:04:00 ANGELIKA zuluagay [facility] 2022-03-012022-03-01 Emergency [facility] [id number] [facility] 06:52:00 12:04:00 Agnelika RAMSEY [id number] [id number] [id number] [facility] 084 Branch 2021-12-25 2021-12-25 [facility] [id number] [place] 00:00:00 00:00:[address] 2021-12-19 2021-12-25 Inpatient LAUREN, [facility] [id number] [place] 00:00:00 00:00:00 JAYSON [address] 2021-12-24 2021-12-24 ambulatory STLMLC [facility] [id number] Common 00:00:00 00:00:00 [place] [facility] 2021-12-20 2021-12-20 In[facility] [id number] [place] 00:00:00 00:00:00 [address] 2021-12-17 2021-12-17 ambulatory STLMLC ST[facility] [id number] Common 00:00:00 00:00:00 [place] [facility] 2021-12-16 2021-12-16 ambulatory STLMLC STLMLC [id number] Common 00:00:00 00:00:00 [place] [facility] 2021-11-19 2021-11-19 Orders Doctor JONES [id number] Univers 00:00:00 00:00:00 Only Unassigned, ASHLEIGH [id number] ity of [facility] [id number] [place] [id number] [facility] 009 Branch 2021-11-04 2021-11-04 Transition SHAREE Maria [id number] Univers 00:00:00 00:00:00 of Care Supa GREW[place] [id number] [id number] [id number] [facility] 403 Branch 2021-10-30 2021-11-02 Inpatient X [facility] [id number] Univers 19:14:00 18:15:00 AIDA ity of [facility] 2021-10-30 2021-11-02 [facility] [id number]. [id number] Univers 19:14:00 18:15:00 Encounter Aida Shah [id number] [facility] [id number] [facility] [id number] [facility] 081 Branch 2021-05-17 2021-05-17 Letter PcpROBERT [id number] Univers 00:00:00 00:00:00 (Out) Patient ASHLEIGH [id number] it y of [facility] [id number] [place] Have A [id number] [facility] 019 Branch 2021-04-25 2021-04-25 Emergency Cece, TRAUMA [id number] Univers 10:43:00 17:38:00 [facility] [id number] i ty of [place] [id number] [facility] [id number] [facility] 014 Branch 2020-06-26 2020-06-26 Emergency [facility] [id number] 03:50:00 06:45:00 Martha Ramsey [id number] [place] [id number] [place] [id number] 2020-06-26 2020-06-26 [facility] [id number] Univers 03:50:00 06:45:00 Martha Ramsey [id number] ity of [place] [id number] [facility] [id number] [facility] 084 Branch 2020-05-24 2020-05-24 [facility] [id number] 06:40:47 10:54:00 Charanjit [place] [id number] [place] [id number] [place] [id number] [facility] 2020-05-24 2020-05-24 Emergency Umang [facility] [id number] Univers 06:40:47 10:54:00 Charanjit [place] [id number] i [id number] [id number] [address] 2020-03-29 2020-03-29 Letter Jamel Flores [id number] 00:00:00 00:00:00 (Out) T Ashleigh [id number] [facility] [id number] [id number] [facility] 2020-03-29 2020-03-29 Letter Jamel Flores [id number] Univers 00:00:00 00:00:00 (Out) T [place] [id number] it y of [facility] [id number] [place] [id number] [address] 2020-03-26 2020-03-26 Transition Sharee George [id number] 00:00:00 00:00:00 of Care Sherrell Grewal 350.1.13.10 [place] 4.2.7.2.686 [id number] [facility] 2020-03-26 2020-03-26 Transition Shraee George 1.2.840.114 [id number] Univers 00:00:00 00:00:00 of Care Sherrell Grewal 350.1.13.10 it y of [place] 4[place]7.2.686 [place] [phone] [facility] [address] [place] 2020-03-22 2020-03-23 Emergency Sallie Eckert Maki 1.2.840. 114 [id number] Univers 18:02:47 21:55:00 Jamel Flores 350.1.13.10 ity of [facility] 4.2.7.2.686 [place] [phone] [address] 2020-03-22 2020-03-23 Outpatient X JAMEL FLORES [facility] [id number] Univers 18:02:47 21:55:00 ity of [facility] 2020-03-21 2020-03-21 Emergency Kamryn, [facility] 1.2.840.114 [id number] Univers 15:02:08 17:16:00 Mylesazra Ramsey 350.1.13.10 i ty of [place] 4.2.7.2.686 [facility] [phone] [address] 2020-03-21 2020-03-21 Emergency X KAMRYN, [facility] ERT [id number] Univers 15:02:08 17:16:00 MYLES ity of [facility] 2020-03-13 2020-03-13 Outpatient Raju_P [facility] [id number] 020 [place] 05:24:00 05:24:00 0428 Medical [facility] 2020-03-08 2020-03-08 Transition Sharee Cool 1.2.840.114 [id number] Univers 00:00:00 00:00:00 of Care Prema Grewal 350.1.13.10 i [phone] [address] 2020-03-04 2020-03-07 [facility] HeckCharanjit [facility] 1.2.840.1 14 [id number] Univers 18:01:05 18:00:00 Encounter AlicerosalioSarah 350.1.13.10 ity of [place] 4.2.7.2.686 [facility] [id number] [address] 2020-03-04 2020-03-07 Inpatient X JULIO CESAR [facility] ZEFERINO [id number] Univers 18:01:05 18:00:00 SARAH itazra of [facility] 2020-03-03 2020-03-03 Transition Sharee Silva 1.2.840.114 [id number] Univers 00:00:00 00:00:00 of Care Isatu Grewal 350.1.13.10 [place] [phone] [address] 2020-02-29 2020-03-02 [facility] Bobo Urrutia [facility] 1.2.840.11 [id number] Univers 16:53:09 12:18:00 Encounter Lulu Harris 350.1.13.10 ity of [place]2.[place] [id number] [place] [address] [place] 2020-02-29 2020-03-02 Inpatient X STEVEN [facility] ZEFERINO [id number] Univers 16:53:09 12:18:00 LULU leon [facility] 2020-02-15 2020-02-15 [facility] [id number] Univers 11:30:00 11:30:00 ROSEMARY leon [facility] 2020-02-15 2020-02-15 [facility] 1.2.840.114 [id number] Univers 08:13:42 08:43:42 ne Visit Rosemary Ramsey 350.1.13.10 [place] [phone] Sd dical nal [address] 2020-01-18 2020-01-18 Transition Sharee Harvey 1.2.840.114 [id number] Univers 00:00:00 00:00:00 of Care Ana M Grewal 350.1.13.10 it y of [place]2.[place] [id number] [facility] [address] 2020-01-15 2020-01-17 [facility] Charanjit Heck [facility] 1.2.840.1 14 [id number] Univers 22:33:37 16:58:00 Encounter Sarah Adorno 350.1.13.10 ity of [place].2.[place] [phone] [address] 2020-01-15 2020-01-17 Outpatient X JULIO CESAR [facility] Z[place] [id number] Univers 22:33:37 16:58:00 SARAH leon [facility] 2019-10-07 2019-10-07 Outpatient Ko Gant [id number] Common 10:48:00 10:48:[address] [facility] [address] [facility] 2019-10-05 2019-10-05 Outpatient Ko Gant [id number] Common 16:06:00 16:06:00 [facility] [address] [facility] 2019-07-27 2019-07-27 Refill Larsen, ROSMERYCESAR 1.2.840.114 [id number] Univers 00:00:00 00:00:00 Rosemary Ramsey 350.1.13.10 i [place] [phone] Sd dical nal [address] [facility] 2019-07-12 2019-07-12 Out[facility] [id number] Common 16:24:00 16:24:00 [facility] [address] [facility] 2019-07-12 2019-07-12 Orders Doctor JONES 1.2.840.114 [id number] Univers 00:00:00 00:00:00 Only Unassigned, ASHLEIGH 350.1.13.10 ity of [place] [facility] 4.2.7.2.686 [place] [phone] [address] 2019-07-06 2019-07-06 Out[facility] [id number] Common 14:00:00 14:00:[address] 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 (test code = 62245-6) Whether the patient has symptoms related to condition of interest (test code = 40065-6) Patient was hospitalized because of this condition (test code = 05386-9) Whether the patient was admitted to intensive care unit (ICU) for condition of interest (test code = 33231-6) Whether patient resides in a congregate care setting (test code = 72036-4) POCT GLUCOSE (AUTOMATED)2021-11-02 22:57:12 Test Item Value Reference Range Interpretation Comments POCT GLU (test code = 4790003881) 224 mg/dL 70-110 H Lab Interpretation (test code = Abnormal 25253-9) [facility] [id number] 22:37:57 Test Item Value Reference Range Interpretation Comments Lab Interpretation (test code = Abnormal 69908-6) [facility] GLUCOSE (AUTOMATED)2021-11-02 17:43:02 Test Item Value Reference Range Interpretation Comments POCT GLU (test code = 3616594926) 264 mg/dL 70-110 H Lab Interpretation (test code = Abnormal 92011-1) [facility] [id number] 15:07:47 Test Item Value Reference Interpretation Comments Range TROPONIN I (test 0.064 ng/mL See_Comment H [Automated code = 4242195599) message] The system which generated this result [...] biotin. Lab Interpretation Abnormal (test code = 77031-2) [facility] [id number] 15:04:26 Test Item Value Reference Range Interpretation Comments NT-proBNP (test code 800 pg/mL See_Comment H [Autom ated = 6218634470) message] The system which generated this result transmitted reference range : <=450. The reference range was not used to interpret this result as normal/abnormal . ALYSSA (test code = ALYSSA) Biotin has been reported to cause a negative bias, interpret results relative to patient's use of biotin. Lab Interpretation Abnormal (test code = 93997-5) [facility] GLUCOSE (AUTOMATED)2021-11-02 13:36:38 Test Item Value Reference Range Interpretation Comments POCT GLU (test code = 9573521579) 185 mg/dL 70-110 H Lab Interpretation (test code = Abnormal 69297-9) [facility] METABOLIC PANEL (NA, K, CL, CO2, GLUCOSE, BUN, CREATININE, CA)2021-11-02 10:26:43 Test Item Value Reference Range Interpretation Comments NA (test code = 136 mmol/L 135-145 1890720095) K (test code = 4.0 mmol/L 3.5-5.0 1591088102) CL (test code = 99 mmol/L 98-108 0635565652) CO2 TOTAL (test code = 27 mmol/L 23-31 5146451673) AGAP (test code = 2-16 7205247305) BUN (test code = 30 mg/dL 7-23 H 1022972502) GLUCOSE (test code = 165 mg/dL 70-110 H 2074510956) CREATININE (test code = 1.42 mg/dL 0.60-1.25 H 3683983619) CALCIUM (test code = 9.5 mg/dL 8.6-10.6 6556812068) eGFR (test code = mL/min/1.73m2 5541460343) ALYSSA (test code = ALYSSA) Association of [...] tests). Lab Interpretation Abnormal (test code = 27509-1) [facility] WITH [id number] 10:01:58 Test Item Value Reference Range Interpretation [...] RDW-SD (test code = 39.8 fL 38.5-51.6 98742-6) RDW-CV (test code = 11.5 % 12.1-15.4 L 788-0) PLT (test code = See_Comment [Automated 777-3) message] The sy stem which generated this result transmitted reference range : 150 - 328 10*3/ ?L. The reference r corey was not used to interpret this result as normal/abnormal . MPV (test code = 10.5 fL 9.8-13.0 96630-1) NRBC/100 WBC (test See_Comment [Automat ed code = 5243435520) message] The system which generated this result transmitted reference range : 0.0 - 10.0 /100 WBCs. The refer ence range was not u sed to interpret th is result as normal/abnormal . NRBC x10^3 (test code <0.01 See_Comment [Auto mated = 5115227931) message] The s ystem which generated this result transmitted reference range : 10*3/?L. The reference range was not used to interpret this result as normal/abnormal . GRAN MAT (NEUT) % 59.3 % (test code = 770-8) IMM GRAN % (test code 0.30 % = 6016396740) LYMPH % (test code = 25.0 % 736-9) MONO % (test code = 10.7 % 5905-5) EOS % (test code = 4.1 % 713-8) BASO % (test code = 0.6 % 706-2) GRAN MAT x10^3(ANC) 4.19 10*3/uL 1.99-6.95 (test code = 0442027438) IMM GRAN x10^3 (test <0.03 0.00-0.06 code = 1355316871) LYMPH x10^3 (test code 1.77 10*3/uL 1.09-3.23 = 731-0) MONO x10^3 (test code 0.76 10*3/uL 0.36-1.02 = 742-7) EOS x10^3 (test code = 0.29 10*3/uL 0.06-0.53 711-2) BASO x10^3 (test code 0.04 10*3/uL 0.01-0.09 = 704-7) Lab Interpretation Abnormal (test code = 04018-1) [facility] GLUCOSE (AUTOMATED)2021-11-02 01:29:56 Test Item Value Reference Range Interpretation Comments POCT GLU (test code = 7420406937) 167 mg/dL 70-110 H Lab Interpretation (test code = Abnormal 57763-0) [facility] GLUCOSE (AUTOMATED)2021-11-01 17:40:19 Test Item Value Reference Range Interpretation Comments POCT GLU (test code = 8131773882) 193 mg/dL 70-110 H Lab Interpretation (test code = Abnormal 61604-7) [facility] GLUCOSE (AUTOMATED)2021-11-01 13:44:28 Test Item Value Reference Range Interpretation Comments POCT GLU (test code = 0642890761) 200 mg/dL 70-110 H Lab Interpretation (test code = Abnormal 63433-9) [facility] GLUCOSE (AUTOMATED)2021-11-01 01:38:43 Test Item Value Reference Range Interpretation Comments POCT GLU (test code = 7793934105) 177 mg/dL 70-110 H Lab Interpretation (test code = Abnormal 77524-4) [facility] GLUCOSE (AUTOMATED)2021-10-31 22:39:43 Test Item Value Reference Range Interpretation Comments POCT GLU (test code = 2622777400) 174 mg/dL 70-110 H Lab Interpretation (test code = Abnormal 75379-0) [facility] GLUCOSE (AUTOMATED)2021-10-31 17:40:22 Test Item Value Reference Range Interpretation Comments POCT GLU (test code = 0655242779) 224 mg/dL 70-110 H Lab Interpretation (test code = Abnormal 35666-5) [facility] [id number] 17:14:58 Test Item Value Reference Interpretation Comments Range TROPONIN I (test 0.080 ng/mL See_Comment H [Automated code = 5538883396) message] The system which generated this result [...] biotin. Lab Interpretation Abnormal (test code = 13503-4) [facility]AL [id number] 15:14:03 Test Item Value Reference Range Interpretation Comments NT-proBNP (test code 474 pg/mL See_Comment H [Autom ated = 9557179485) message] The system which generated this result transmitted reference range : <=450. The reference range was not used to interpret this result as normal/abnormal . ALYSSA (test code = ALYSSA) Biotin has been reported to cause a negative bias, interpret results relative to patient's use of biotin. Lab Interpretation Abnormal (test code = 86196-0) [facility] CenterLIPID PANEL (34172)(TOTAL CHOLESTEROL, TRIGLYCERIDES, HDL)2021-10-31 15:05:19 Test Item Value Reference Range Interpretation Comments CHOL (test code = 101 mg/dL 120-200 L 3355495306) HDL (test code = 36 mg/dL >40 L 8761152867) HDLC RATIO (test code = See_Comment [Au tomated message] 5955723172) The system miDrive generated this result transmit diamante reference range : <=5.0. The refe rence range was not u sed to interpret th is result as normal/abnormal . TRIG (test code = 143 mg/dL 30-170 3568181233) LDL CHOL (test code = 36 mg/dL See_Comment [Auto mated message] 50833-4) The system miDrive generated this result transmit diamante reference range : <=160. The refe rence range was not u sed to interpret th is result as normal/abnormal . VLDL (test code = 29 mg/dL 5-60 8144551112) Lab Interpretation (test Abnormal code = 71482-1) [facility])2021-10-31 13:44:00 Test Item Value Reference Range Interpretation Comments POCT GLU (test code = 3376015155) 150 mg/dL 70-110 H Lab Interpretation (test code = Abnormal 16986-9) [facility] CenterCB with [id number] 11:13:14 Test Item Value Reference Range Interpretation [...] RDW-SD (test code = 39.9 fL 38.5-51.6 21748-8) RDW-CV (test code = 11.8 % 12.1-15.4 L 788-0) PLT (test code = See_Comment [Automated 777-3) message] The sy stem which generated this result transmitted reference range : 150 - 328 10*3/ ?L. The reference r corey was not used to interpret this result as normal/abnormal . MPV (test code = 11.0 fL 9.8-13.0 19653-0) NRBC/100 WBC (test See_Comment [Automat ed code = 4999296154) message] The system which generated this result transmitted reference range : 0.0 - 10.0 /100 WBCs. The refer ence range was not u sed to interpret th is result as normal/abnormal . NRBC x10^3 (test code <0.01 See_Comment [Auto mated = 8439022400) message] The s ystem which generated this result transmitted reference range : 10*3/?L. The reference range was not used to interpret this result as normal/abnormal . GRAN MAT (NEUT) % 64.3 % (test code = 770-8) IMM GRAN % (test code 0.30 % = 2943577030) LYMPH % (test code = 21.7 % 736-9) MONO % (test code = 10.0 % 5905-5) EOS % (test code = 3.1 % 713-8) BASO % (test code = 0.6 % 706-2) GRAN MAT x10^3(ANC) 4.35 10*3/uL 1.99-6.95 (test code = 5004483149) IMM GRAN x10^3 (test <0.03 0.00-0.06 code = 9590774360) LYMPH x10^3 (test code 1.47 10*3/uL 1.09-3.23 = 731-0) MONO x10^3 (test code 0.68 10*3/uL 0.36-1.02 = 742-7) EOS x10^3 (test code = 0.21 10*3/uL 0.06-0.53 711-2) BASO x10^3 (test code 0.04 10*3/uL 0.01-0.09 = 704-7) Lab Interpretation Abnormal (test code = 27396-8) [facility] [id number] 11:09:53 Test Item Value Reference Interpretation Comments Range TROPONIN I (test 0.101 ng/mL See_Comment H [Automated code = 7493396253) message] The system which generated this result [...] biotin. Lab Interpretation Abnormal (test code = 85770-5) [facility] (NA, K, CL, CO2, GLUCOSE, BUN, CREATININE, CA)2021-10-31 10:59:31 Test Item Value Reference Range Interpretation Comments NA (test code = 139 mmol/L 135-145 0425291775) K (test code = 4.1 mmol/L 3.5-5.0 3374973527) CL (test code = 103 mmol/L 98-108 5402188140) CO2 TOTAL (test code = 28 mmol/L 23-31 6392950769) AGAP (test code = 2-16 3425575174) BUN (test code = 43 mg/dL 7-23 H 5410725894) GLUCOSE (test code = 165 mg/dL 70-110 H 8739819442) CREATININE (test code = 1.68 mg/dL 0.60-1.25 H 7732511286) CALCIUM (test code = 9.6 mg/dL 8.6-10.6 7168034948) eGFR (test code = mL/min/1.73m2 2155831829) ALYSSA (test code = ALYSSA) Association of [...] tests). Lab Interpretation Abnormal (test code = 85204-1) [facility] CenterGlycosylated Hemoglobin (A1C)2021-10-31 09:13:40 Test Item Value Reference Range Interpretation Comments HGB A1C (test code = 6.8 % 4.0-5.7 H 4548-4) ALYSSA (test code = ALYSSA) Reference RangesNormal: <5.7%Prediabetes: 5.7 - 6.4%Diabetes: > 6.5% Lab Interpretation (test Abnormal code = 23580-9) [facility] [id number] 06:48:18 Test Item Value Reference Interpretation Comments Range TROPONIN I (test 0.082 ng/mL See_Comment H [Automated code = 6989121458) message] The system which generated this result [...] biotin. Lab Interpretation Abnormal (test code = 06003-3) [facility] [id number] 02:09:48 Test Item Value Reference Interpretation Comments Range TROPONIN I (test 0.067 ng/mL See_Comment H [Automated code = 4759212870) message] The system which generated this result [...] biotin. Lab Interpretation Abnormal (test code = 25996-5) [facility]AL [id number] 02:06:31 Test Item Value Reference Range Interpretation Comments NT-proBNP (test code 318 pg/mL See_Comment [Autom ated = 2478558325) message] The system which generated this result transmitted reference range : <=450. The reference range was not used to interpret this result as normal/abnormal . ALYSSA (test code = ALYSSA) Biotin has been reported to cause a negative bias, interpret results relative to patient's use of biotin. Lab Interpretation Normal (test code = 49534-1) [facility] CenterCOMP. METABOLIC PANEL (17910)2021-10-31 01:58:28 Test Item Value Reference Range Interpretation Comments NA (test code = 137 mmol/L 135-145 4633436370) K (test code = 4.1 mmol/L 3.5-5.0 2953380183) CL (test code = 101 mmol/L 98-108 8323711959) CO2 TOTAL (test code = 26 mmol/L 23-31 5695488593) AGAP (test code = 2-16 2061334245) BUN (test code = 46 mg/dL 7-23 H 2934043106) GLUCOSE (test code = 213 mg/dL 70-110 H 8741386547) CREATININE (test code = 1.96 mg/dL 0.60-1.25 H 8766476675) TOTAL BILI (test code = 0.9 mg/dL 0.1-1.9 3666675705) CALCIUM (test code = 9.7 mg/dL 8.6-10.6 4310532432) T PROTEIN (test code = 7.0 g/dL 6.3-8.2 2367680926) ALBUMIN (test code = 4.3 g/dL 3.5-5.0 3820097396) ALK PHOS (test code = 58 U/L 34-122 7031914748) ALTv (test code = 20 U/L 5-50 1742-6) AST(SGOT) (test code = 27 U/L 13-40 4063859652) eGFR (test code = mL/min/1.73m2 5125934620) ALYSSA (test code = ALYSSA) Association of [...] tests). Lab Interpretation Abnormal (test code = 22771-7) [facility] CenterLIPASE, [id number] 01:57:48 Test Item Value Reference Range Interpretation Comments LIPASE (test code = 0335827817) 330 U/L 0-220 H Lab Interpretation (test code = Abnormal 72337-6) [facility] CenteraPTT2021-12-16 01:55:04 Test Item Value Reference Range Interpretation [...] seconds. Lab Interpretation Normal (test code = 68176-9) [facility] CenterPROTHROMBIN TIME / [id number] 01:53:08 Test Item Value Reference Range Interpretation [...] tions. Lab Interpretation (test Normal code = 00596-7) [facility] CenterCBC WITH [id number] 01:45:44 Test Item Value Reference Range Interpretation [...] RDW-SD (test code = 39.1 fL 38.5-51.6 49566-3) RDW-CV (test code = 11.6 % 12.1-15.4 L 788-0) PLT (test code = See_Comment [Automated 777-3) message] The sy stem which generated this result transmitted reference range : 150 - 328 10*3/ ?L. The reference r corey was not used to interpret this result as normal/abnormal . MPV (test code = 10.4 fL 9.8-13.0 86937-7) NRBC/100 WBC (test See_Comment [Automat ed code = 5009848069) message] The system which generated this result transmitted reference range : 0.0 - 10.0 /100 WBCs. The refer ence range was not u sed to interpret th is result as normal/abnormal . NRBC x10^3 (test code <0.01 See_Comment [Auto mated = 5084495469) message] The s ystem which generated this result transmitted reference range : 10*3/?L. The reference range was not used to interpret this result as normal/abnormal . GRAN MAT (NEUT) % 62.1 % (test code = 770-8) IMM GRAN % (test code 0.30 % = 5307530276) LYMPH % (test code = 23.4 % 736-9) MONO % (test code = 10.8 % 5905-5) EOS % (test code = 2.9 % 713-8) BASO % (test code = 0.5 % 706-2) GRAN MAT x10^3(ANC) 4.14 10*3/uL 1.99-6.95 (test code = 5848905248) IMM GRAN x10^3 (test <0.03 0.00-0.06 code = 9205358566) LYMPH x10^3 (test code 1.56 10*3/uL 1.09-3.23 = 731-0) MONO x10^3 (test code 0.72 10*3/uL 0.36-1.02 = 742-7) EOS x10^3 (test code = 0.19 10*3/uL 0.06-0.53 711-2) BASO x10^3 (test code 0.03 10*3/uL 0.01-0.09 = 704-7) Lab Interpretation Abnormal (test code = 52972-5) [facility]URIN[facility]IS2021-[facility]-10 21:15:48 Test Item Value Reference Range Interpretation Comments APPEARANCE (test code = Clear Clear 4722601287) COLOR (test code = Yellow Yellow 0982908714) PH (test code = 4.8-8.0 3398740383) SP GRAVITY (test code = 1.003-1.030 1186351624) GLU U QUAL (test code = 50 mg/dL Normal A 9423183191) BLOOD (test code = Negative Negative INTERFERE NCE FROM 2212728153) ASCORBIC ACID M AY CAUSE FALSE NEG ATIVE RESULT KETONES (test code = Negative Negative 4916935879) PROTEIN (test code = Negative Negative 2887-8) UROBILIN (test code = Normal Normal 1587029210) BILIRUBIN (test code = Negative Negative 2421406892) NITRITE (test code = Negative Negative 3992110514) LEUK JESS (test code = Negative Negative 6675748239) RBC/HPF (test code = See_Comment [Autom ated message] 4119296627) The system miDrive generated this result transmitted ref erence range: 0 - 3 HP F. The reference range was not used to int erpret this result as normal/abnormal . WBC/HPF (test code = See_Comment [Autom ated message] 9221540511) The system miDrive generated this result transmitted ref erence range: 0 - 5 HP F. The reference range was not used to int erpret this result as normal/abnormal . BACTERIA (test code = Negative Negative 8282681818) SQ EPITH (test code = <1 See_Comment [Auto mated message] 3701697636) The system miDrive generated this result transmitted ref erence range: <=2 HPF. The reference range was not used to int erpret this result as normal/abnormal . HYAL CAST (test code = See_Comment [Aut omated message] 6275503922) The system miDrive generated this result transmitted ref erence range: <=2 LPF. The reference range was not used to int erpret this result as normal/abnormal . Lab Interpretation (test Abnormal code = 37734-4) [facility] CenterXR LUMBAR SPINE 2 [id number] 20:30:53 Impression: Postoperative changes. Degenerative changes. No [...] acute fracture or dislocation identified. Atherosclerotic calcifications. [facility], Radiant Results Inft User -04/25/2021 [...] acute bony abnormality identified.End of Report.RL: 3901 [facility] CenterXR HIPS 2 VW [id number] 20:24:52Impression: Postoperative changes. Degenerative changes. No acute [...] clinicalconcern MRI is available.End of Report.RL: 3901 [facility] Met[facility] (NA, K, CL, CO2, GLUCOSE, BUN, CREATININE, CA)2020-05-24 14:15:00 Test Item Value Reference Range Interpretation Comments NA (test code = 139 mmol/L 135-145 1900598687) K (test code = 4.1 mmol/L 3.5-5 3204620947) CL (test code = 104 mmol/L 98-108 0446629660) CO2 TOTAL (test code = 26 mmol/L 23-31 9019201678) AGAP (test code = 2-16 5040088171) BUN (test code = 22 mg/dL 7-23 5450788015) GLUCOSE (test code = 203 mg/dL 70-110 H 9136922609) CREATININE (test code = 1.40 mg/dL 0.6-1.25 H 1163445131) CALCIUM (test code = 9.1 mg/dL 8.6-10.6 7317446328) eGFR Calculation mL/min/1.73m2 (Non-) (test code = 5814986128) eGFR Calculation mL/min/1.73m2 () (test code = 5419392059) ALYSSA (test code = ALYSSA) Association of [...] tests). Lab Interpretation Abnormal (test code = 21944-7) [facility] CenterHepatic Function Panel (ALB, T.PRO, BILI T, BU/BC, ALT, AST, ALK PHOS)2020-05-24 13:54:00 Test Item Value Reference Range Interpretation Comments TOTAL BILI (test code = 8877627042) 0.9 mg/dL 0.1-1.1 BILI UNCON (test code = 2756541679) 1.0 mg/dL 0.1-1.1 BILI CONJ (test code = 0227911008) 0.0 mg/dL 0-0.3 T PROTEIN (test code = 0856846972) 7.0 g/dL 6.3-8.2 ALBUMIN (test code = 0359738619) 4.2 g/dL 3.5-5 ALK PHOS (test code = 1977239065) 49 U/L 34-122 ALTv (test code = 1742-6) 17 U/L 5-50 AST(SGOT) (test code = 8180385058) 25 U/L 13-40 Lab Interpretation (test code = Normal 53231-3) [facility] CenteraPTT2020-07-09 13:32:00 Test Item Value Reference Range Interpretation [...] seconds. Lab Interpretation Normal (test code = 05828-9) [facility] CenterProthrombin Time (PT) / [id number] 13:30:00 Test Item Value Reference Range Interpretation [...] tions. Lab Interpretation (test Normal code = 38737-5) [facility] CenterCBC WITH [id number] 13:27:00 Test Item Value Reference Range Interpretation Comments WBC (test code = See_Comment [Automated 90-2) message] The sy stem which generated this result transmitted reference range : 4.20 - 10.70 10*3/?L. The reference range was not used to interpret this result as normal/abnormal . RBC (test code = See_Comment L [Automated 339-8) message] The sy stem which generated this [...] RDW-SD (test code = 42.6 fL 38.5-51.6 06733-0) RDW-CV (test code = 12.3 % 12.1-15.4 788-0) PLT (test code = See_Comment [Automated 777-3) message] The sy stem which generated this result transmitted reference range : 150 - 328 10*3/ ?L. The reference r corey was not used to interpret this result as normal/abnormal . MPV (test code = 9.9 fL 9.8-13 50694-2) NRBC/100 WBC (test See_Comment [Automat ed code = 9798871600) message] The system which generated this result transmitted reference range : 0.0 - 10.0 /100 WBCs. The refer ence range was not u sed to interpret th is result as normal/abnormal . NRBC x10^3 (test code <0.01 See_Comment [Auto mated = 3870315587) message] The s ystem which generated this result transmitted reference range : 10*3/?L. The reference range was not used to interpret this result as normal/abnormal . GRAN MAT (NEUT) % 55.1 % (test code = 770-8) IMM GRAN % (test code 0.20 % = 1358558566) LYMPH % (test code = 28.8 % 736-9) MONO % (test code = 11.3 % 5905-5) EOS % (test code = 3.5 % 713-8) BASO % (test code = 1.1 % 706-2) GRAN MAT x10^3(ANC) 3.11 10*3/uL 1.99-6.95 (test code = 8455786030) IMM GRAN x10^3 (test <0.03 0-0.06 code = 4839477917) LYMPH x10^3 (test code 1.63 10*3/uL 1.09-3.23 = 731-0) MONO x10^3 (test code 0.64 10*3/uL 0.36-1.02 = 742-7) EOS x10^3 (test code = 0.20 10*3/uL 0.06-0.53 711-2) BASO x10^3 (test code 0.06 10*3/uL 0.01-0.09 = 704-7) Lab Interpretation Abnormal (test code = 39274-8) [facility] [id number] 13:25:58HISTORY: ?Pain. FINDINGS: AP, lateral, oblique views [...] No acute fracture or dislocation in left ankle.[facility] GLUCOSE (AUTOMATED)2020-03-23 22:34:00 Test Item Value Reference Range Interpretation Comments POCT GLU (test code = 3271563910) 173 mg/dL 70-110 H Lab Interpretation (test code = Abnormal 83908-4) [facility] GLUCOSE (AUTOMATED)2020-03-23 22:34:00 Test Item Value Reference Range Interpretation Comments POCT GLU (test code = 3310098350) 173 mg/dL 70-110 H Lab Interpretation (test code = Abnormal 68094-5) [facility] GLUCOSE (AUTOMATED)2020-03-23 18:12:00 Test Item Value Reference Range Interpretation Comments POCT GLU (test code = 165 mg/dL 70-110 H Notifi ed Provider [id number]) Lab Interpretation (test Abnormal code = 19146-4) [facility] GLUCOSE (AUTOMATED)2020-03-23 18:12:00 Test Item Value Reference Range Interpretation Comments POCT GLU (test code = 165 mg/dL 70-110 H Notifi ed Provider [id number]) Lab Interpretation (test Abnormal code = 93679-4) [facility] GLUCOSE (AUTOMATED)2020-03-23 15:04:00 Test Item Value Reference Range Interpretation Comments POCT GLU (test code = 114 mg/dL 70-110 H Notifi ed Provider [id number]) Lab Interpretation (test Abnormal code = 65981-4) [facility] GLUCOSE (AUTOMATED)2020-03-23 15:04:00 Test Item Value Reference Range Interpretation Comments POCT GLU (test code = 114 mg/dL 70-110 H Notifi ed Provider [id number]) Lab Interpretation (test Abnormal code = 22226-0) [facility] [id number] 13:23:00 Test Item Value Reference Range Interpretation Comments FERRITIN (test code = 139.0 ng/mL 18-464 9520451089) ALYSSA (test code = ALYSSA) Biotin has been reported to cause a negative bias, interpret results relative to patient's use of biotin. Lab Interpretation (test Normal code = 88965-6) [facility]FER[facility] [id number] 13:23:00 Test Item Value Reference Range Interpretation Comments FERRITIN (test code = 139.0 ng/mL 18-464 4942763419) ALYSSA (test code = ALYSSA) Biotin has been reported to cause a negative bias, interpret results relative to patient's use of biotin. Lab Interpretation (test Normal code = 53382-1) [facility] [id number] 12:53:00 Test Item Value Reference Range Interpretation Comments IRON (test code = 4204138398) 87 ug/dL 50-160 TIBC (test code = 9928860153) 385 ug/dL 250-410 % FE SAT (test code = 9908701731) 23 % 20-50 Lab Interpretation (test code = Normal 47529-4) [facility] [id number] 12:53:00 Test Item Value Reference Range Interpretation Comments IRON (test code = 4002425193) 87 ug/dL 50-160 TIBC (test code = 3892074470) 385 ug/dL 250-410 % FE SAT (test code = 8506080303) 23 % 20-50 Lab Interpretation (test code = Normal 29827-9) [facility] 12:07:00 Test Item Value Reference Range Interpretation Comments APTT Patient (test code See_Comment [Au tomated message] = 3173-2) The system [employer] generated this result transmitted ref erence range: 26 - 36 Seconds. The reference range was not used to int erpret this result as normal/abnormal . Lab Interpretation (test Abnormal code = 54350-8) [facility] 12:07:00 Test Item Value Reference Range Interpretation Comments APTT Patient (test code See_Comment [Au tomated message] = 3173-2) The system [employer] generated this result transmitted ref erence range: 26 - 36 Seconds. The reference range was not used to int erpret this result as normal/abnormal . Lab Interpretation (test Abnormal code = 97072-2) [facility] [id number] 11:57:00 Test Item Value Reference Range Interpretation Comments TROPONIN I (test 0.046 ng/mL See_Comment H [Automated code = 4813349067) message] The system which generated this result [...] ? Lab Interpretation Abnormal (test code = 57734-5) [facility]KATEN [id number] 11:57:00 Test Item Value Reference Range Interpretation Comments TROPONIN I (test 0.046 ng/mL See_Comment H [Automated code = 6265538035) message] The system which generated this result [...] ? Lab Interpretation Abnormal (test code = 33882-1) [facility] (NA, K, CL, CO2, GLUCOSE, BUN, CREATININE, CA)2020-03-23 11:52:00 Test Item Value Reference Range Interpretation Comments NA (test code = 137 mmol/L 135-145 9885013231) K (test code = 4.1 mmol/L 3.5-5 6258891541) CL (test code = 102 mmol/L 98-108 7250645933) CO2 TOTAL (test code = 26 mmol/L 23-31 6960094934) AGAP (test code = 2-16 8172314369) BUN (test code = 18 mg/dL 7-23 4979012067) GLUCOSE (test code = 119 mg/dL 70-110 H 0681969383) CREATININE (test code = 1.14 mg/dL 0.6-1.25 8432405907) CALCIUM (test code = 9.1 mg/dL 8.6-10.6 7280499257) eGFR Calculation mL/min/1.73m2 (Non-) (test code = 1600146959) eGFR Calculation mL/min/1.73m2 () (test code = 8249118610) ALYSSA (test code = ALYSSA) Association of [...] tests). Lab Interpretation Abnormal (test code = 26530-9) [facility] 11:52:00 Test Item Value Reference Range Interpretation Comments MAGNESIUM (test code = 2925237881) 2.2 mg/dL 1.7-2.4 Lab Interpretation (test code = Normal 12161-7) [facility] (NA, K, CL, CO2, GLUCOSE, BUN, CREATININE, CA)2020-03-23 11:52:00 Test Item Value Reference Range Interpretation Comments NA (test code = 137 mmol/L 135-145 3512532884) K (test code = 4.1 mmol/L 3.5-5 7083056253) CL (test code = 102 mmol/L 98-108 9296695771) CO2 TOTAL (test code = 26 mmol/L 23-31 4069874585) AGAP (test code = 2-16 8393265113) BUN (test code = 18 mg/dL 7-23 4006873128) GLUCOSE (test code = 119 mg/dL 70-110 H 2900979837) CREATININE (test code = 1.14 mg/dL 0.6-1.25 7751179897) CALCIUM (test code = 9.1 mg/dL 8.6-10.6 1076523444) eGFR Calculation mL/min/1.73m2 (Non-) (test code = 0521893263) eGFR Calculation mL/min/1.73m2 () (test code = 4590297503) ALYSSA (test code = ALYSSA) Association of [...] tests). Lab Interpretation Abnormal (test code = 66350-5) [facility]2020[facility] 11:52:00 Test Item Value Reference Range Interpretation Comments MAGNESIUM (test code = 5505192317) 2.2 mg/dL 1.7-2.4 Lab Interpretation (test code = Normal 29932-0) [facility] CenterProthrom[facility] (PT) / [id number] 11:36:00 Test Item Value Reference Range Interpretation Comments PROTIME PATIENT (test See_Comment [Auto mated message] code = 5964-2) The system [employer] generated this result transmitted ref erence range: 10.1 - 1 2.6 Seconds. The re ference range was not u sed to interpret this result as normal/abnor mal. INR (test code = 6301-6) Nor mal INR <1.1; Warfarin Therap eutic range 2.0 to 3. 0 or 2.5 to 3.5, dep ending upon the indica tions. Lab Interpretation (test Normal code = 97190-6) [facility] ([facility] / [id number] 11:36:00 Test Item Value Reference Range Interpretation Comments PROTIME PATIENT (test See_Comment [Auto mated message] code = 5964-2) The system [employer] generated this result transmitted ref erence range: 10.1 - 1 2.6 Seconds. The re ference range was not u sed to interpret this result as normal/abnor mal. INR (test code = 6301-6) Nor mal INR <1.1; Warfarin Therap eutic range 2.0 to 3. 0 or 2.5 to 3.5, dep ending upon the indica tions. Lab Interpretation (test Normal code = 09795-4) [facility] CenterTROP[facility]IN [id number] 06:38:00 Test Item Value Reference Range Interpretation Comments TROPONIN I (test 0.045 ng/mL See_Comment H [Automated code = 0864334561) message] The system which generated this result [...] ? Lab Interpretation Abnormal (test code = 36940-6) [facility] [id number] 06:38:00 Test Item Value Reference Range Interpretation Comments TROPONIN I (test 0.045 ng/mL See_Comment H [Automated code = 6526271676) message] The system which generated this result [...] ? Lab Interpretation Abnormal (test code = 47530-8) [facility] (NA, K, CL, CO2, GLUCOSE, BUN, CREATININE, CA)2020-03-23 06:29:00 Test Item Value Reference Range Interpretation Comments NA (test code = 137 mmol/L 135-145 9468987468) K (test code = 3.6 mmol/L 3.5-5 7133930628) CL (test code = 101 mmol/L 98-108 1695197512) CO2 TOTAL (test code = 27 mmol/L 23-31 3011351509) AGAP (test code = 2-16 2829975078) BUN (test code = 19 mg/dL 7-23 6207671103) GLUCOSE (test code = 153 mg/dL 70-110 H 2310115583) CREATININE (test code = 1.22 mg/dL 0.6-1.25 8592561602) CALCIUM (test code = 8.9 mg/dL 8.6-10.6 8248796538) eGFR Calculation mL/min/1.73m2 (Non-) (test code = 5210255897) eGFR Calculation mL/min/1.73m2 () (test code = 2008487605) ALYSSA (test code = ALYSSA) Association of [...] tests). Lab Interpretation Abnormal (test code = 49500-2) [facility]2020-[facility] 06:29:00 Test Item Value Reference Range Interpretation Comments MAGNESIUM (test code = 8728014788) 1.7 mg/dL 1.7-2.4 Lab Interpretation (test code = Normal 94495-7) [facility] CenterLIPID PANEL (76148)(TOTAL CHOLESTEROL, TRIGLYCERIDES, HDL)2020-03-23 06:29:00 Test Item Value Reference Range Interpretation Comments CHOL (test code = 106 mg/dL 120-200 L 8559579670) HDL (test code = 46 mg/dL >40 3689881590) HDLC RATIO (test code = See_Comment [Au tomated message] 2608401442) The system [employer] generated this result transmit diamante reference range : <=5.0. The refe rence range was not u sed to interpret th is result as normal/abnormal . TRIG (test code = 74 mg/dL 30-170 1879536917) LDL CHOL (test code = 45 mg/dL See_Comment [Auto mated message] 85305-0) The system [employer] generated this result transmit diamante reference range : <=160. The refe rence range was not u sed to interpret th is result as normal/abnormal . VLDL (test code = 15 mg/dL 5-60 6366350936) Lab Interpretation (test Abnormal code = 52741-0) [facility] METABOLIC PANEL (NA, K, CL, CO2, GLUCOSE, BUN, CREATININE, CA)2020-03-23 06:29:00 Test Item Value Reference Range Interpretation Comments NA (test code = 137 mmol/L 135-145 7473983220) K (test code = 3.6 mmol/L 3.5-5 0855692684) CL (test code = 101 mmol/L 98-108 2876485962) CO2 TOTAL (test code = 27 mmol/L 23-31 2084728368) AGAP (test code = 2-16 8502319410) BUN (test code = 19 mg/dL 7-23 9023648253) GLUCOSE (test code = 153 mg/dL 70-110 H 3126986190) CREATININE (test code = 1.22 mg/dL 0.6-1.25 4848711944) CALCIUM (test code = 8.9 mg/dL 8.6-10.6 1247457261) eGFR Calculation mL/min/1.73m2 (Non-) (test code = 2325138982) eGFR Calculation mL/min/1.73m2 () (test code = 0797174706) ALYSSA (test code = ALYSSA) Association of [...] tests). Lab Interpretation Abnormal (test code = 43328-7) [facility] 06:29:00 Test Item Value Reference Range Interpretation Comments MAGNESIUM (test code = 6821955299) 1.7 mg/dL 1.7-2.4 Lab Interpretation (test code = Normal 08016-5) [facility] CenterLIPID PANEL (64493)(TOTAL CHOLESTEROL, TRIGLYCERIDES, HDL)2020-03-23 06:29:00 Test Item Value Reference Range Interpretation Comments CHOL (test code = 106 mg/dL 120-200 L 4194167280) HDL (test code = 46 mg/dL >40 8175903523) HDLC RATIO (test code = See_Comment [Au tomated message] 7252789178) The system [employer] generated this result transmit diamante reference range : <=5.0. The refe rence range was not u sed to interpret th is result as normal/abnormal . TRIG (test code = 74 mg/dL 30-170 3082816232) LDL CHOL (test code = 45 mg/dL See_Comment [Auto mated message] 84264-1) The system [employer] generated this result transmit diamante reference range : <=160. The refe rence range was not u sed to interpret th is result as normal/abnormal . VLDL (test code = 15 mg/dL 5-60 9495761082) Lab Interpretation (test Abnormal code = 36471-3) [facility] 03:18:00 Test Item Value Reference Range Interpretation Comments APTT Patient (test code = See_Comment [ Automated message] 3173-2) The system [employer] generated this result transmitted ref erence range: 26 - 36 Seconds. The re ference range was not u sed to interpret this result as normal/abnor mal. Lab Interpretation (test Normal code = 53475-8) [facility] 03:18:00 Test Item Value Reference Range Interpretation Comments APTT Patient (test code = See_Comment [ Automated message] 3173-2) The system [employer] generated this result transmitted ref erence range: 26 - 36 Seconds. The re ference range was not u sed to interpret this result as normal/abnor mal. Lab Interpretation (test Normal code = 86429-5) [facility] CenterPROTHROMBIN TIME / [id number] 03:07:00 Test Item Value Reference Range Interpretation Comments PROTIME PATIENT (test See_Comment [Auto mated message] code = 5964-2) The system [employer] generated this result transmitted ref erence range: 10.1 - 1 2.6 Seconds. The re ference range was not u sed to interpret this result as normal/abnor mal. INR (test code = 6301-6) Nor mal INR <1.1; Warfarin Therap eutic range 2.0 to 3. 0 or 2.5 to 3.5, dep ending upon the indica tions. Lab Interpretation (test Normal code = 27002-0) [facility] CenterPROTHROMBIN TIME / [id number] 03:07:00 Test Item Value Reference Range Interpretation Comments PROTIME PATIENT (test See_Comment [Auto mated message] code = 5964-2) The system [employer] generated this result transmitted ref erence range: 10.1 - 1 2.6 Seconds. The re ference range was not u sed to interpret this result as normal/abnor mal. INR (test code = 6301-6) Nor mal INR <1.1; Warfarin Therap eutic range 2.0 to 3. 0 or 2.5 to 3.5, dep ending upon the indica tions. Lab Interpretation (test Normal code = 99801-8) [facility] [id number] 02:23:32 No acute cardiopulmonary process. Preliminary Report [...] reviewed this study and agree with the abovereport.[facility] [id number] 02:23:32 No acute cardiopulmonary process. Preliminary Report [...] is seen. Noacute bony abnormalities are noted. [facility], Radiant Results Inft User - 03/22/2020 9:24 [...] reviewed this study and agree with the abovereport.[facility]CORON[facility] COVID-19 [id number] 01:23:00 Test Item Value Reference Range Interpretation Comments SARS-CoV-2 (test code = Not Detected Not Detected 54725-4) ALYSSA (test code = ALYSSA) ID NOW COVID-19 Assay is an isothermal nucleic acid amplification test intended for the qualitative detection of nucleic acid from SARS-CoV-2 viral RNA in nasopharyngeal (HEALTH IT SPECIALIST) specimens. It is used under Emergency Use [...] indicated. Lab Interpretation Normal (test code = 45279-1) [facility]19 [id number] 01:23:00 Test Item Value Reference Range Interpretation Comments SARS-CoV-2 (test code = Not Detected Not Detected 75339-7) ALYSSA (test code = ALYSSA) ID NOW COVID-19 Assay is an isothermal nucleic acid amplification test intended for the qualitative detection of nucleic acid from SARS-CoV-2 viral RNA in nasopharyngeal (HEALTH IT SPECIALIST) specimens. It is used under Emergency Use [...] indicated. Lab Interpretation Normal (test code = 45416-6) [facility] CenterN-[facility]MINAL [id number] 00:12:00 Test Item Value Reference Range Interpretation Comments NT-proBNP (test code 585 pg/mL See_Comment H [Autom ated = 9523400970) message] The system which generated this result transmitted reference range : <=450. The reference range was not used to interpret this result as normal/abnormal . ALYSSA (test code = ALYSSA) Biotin has been reported to cause a negative bias, interpret results relative to patient's use of biotin. Lab Interpretation Abnormal (test code = 99339-7) [facility] [id number] 00:12:00 Test Item Value Reference Range Interpretation Comments TROPONIN I (test 0.030 ng/mL See_Comment [Automated code = 8066668078) message] The system which generated this result [...] ? Lab Interpretation Normal (test code = 84384-4) [facility] [id number] 00:12:00 Test Item Value Reference Range Interpretation Comments NT-proBNP (test code 585 pg/mL See_Comment H [Autom ated = 0781773377) message] The system which generated this result transmitted reference range : <=450. The reference range was not used to interpret this result as normal/abnormal . ALYSSA (test code = ALYSSA) Biotin has been reported to cause a negative bias, interpret results relative to patient's use of biotin. Lab Interpretation Abnormal (test code = 19872-9) [facility] [id number] 00:12:00 Test Item Value Reference Range Interpretation Comments TROPONIN I (test 0.030 ng/mL See_Comment [Automated code = 9183393712) message] The system which generated this result [...] ? Lab Interpretation Normal (test code = 85512-2) [facility]. METABOLIC PANEL (81275)2020-03-23 00:03:00 Test Item Value Reference Range Interpretation Comments NA (test code = 138 mmol/L 135-145 0143096003) K (test code = 4.1 mmol/L 3.5-5 1354927386) CL (test code = 103 mmol/L 98-108 5575623659) CO2 TOTAL (test code = 26 mmol/L 23-31 4641212337) AGAP (test code = 2-16 5876054553) BUN (test code = 18 mg/dL 7-23 8356379433) GLUCOSE (test code = 157 mg/dL 70-110 H 3453880810) CREATININE (test code = 1.19 mg/dL 0.6-1.25 0677039475) TOTAL BILI (test code = 1.1 mg/dL 0.1-1.5 4975331387) CALCIUM (test code = 9.2 mg/dL 8.6-10.6 7182243893) T PROTEIN (test code = 6.8 g/dL 6.3-8.2 7256025460) ALBUMIN (test code = 4.0 g/dL 3.5-5 9505461231) ALK PHOS (test code = 51 U/L 34-122 6782442602) ALTv (test code = 16 U/L 5-50 1742-6) AST(SGOT) (test code = 23 U/L 13-40 9211820538) eGFR Calculation mL/min/1.73m2 (Non-) (test code = 9561039409) eGFR Calculation mL/min/1.73m2 () (test code = 5765286121) ALYSSA (test code = ALYSSA) Association of [...] tests). Lab Interpretation Abnormal (test code = 10031-4) [facility] METABOLIC PANEL (31469)2020-03-23 00:03:00 Test Item Value Reference Range Interpretation Comments NA (test code = 138 mmol/L 135-145 3803851381) K (test code = 4.1 mmol/L 3.5-5 7074356523) CL (test code = 103 mmol/L 98-108 6041688026) CO2 TOTAL (test code = 26 mmol/L 23-31 7869077498) AGAP (test code = 2-16 5954829124) BUN (test code = 18 mg/dL 7-23 4657935408) GLUCOSE (test code = 157 mg/dL 70-110 H 7506455027) CREATININE (test code = 1.19 mg/dL 0.6-1.25 9635726610) TOTAL BILI (test code = 1.1 mg/dL 0.1-1.1 2909349510) CALCIUM (test code = 9.2 mg/dL 8.6-10.6 3733652191) T PROTEIN (test code = 6.8 g/dL 6.3-8.2 3456576511) ALBUMIN (test code = 4.0 g/dL 3.5-5 1693552857) ALK PHOS (test code = 51 U/L 34-122 7752443771) ALTv (test code = 16 U/L 5-50 1742-6) AST(SGOT) (test code = 23 U/L 13-40 0768960731) eGFR Calculation mL/min/1.73m2 (Non-) (test code = 1045939941) eGFR Calculation mL/min/1.73m2 () (test code = 2004444291) ALYSSA (test code = ALYSSA) Association of [...] tests). Lab Interpretation Abnormal (test code = 98548-5) [facility] WITH [id number] 23:57:00 Test Item Value Reference Range Interpretation Comments WBC (test code = See_Comment [Automated 3946-2) message] The sy stem which generated this [...] RDW-SD (test code = 49.6 fL 38.5-51.6 80304-8) RDW-CV (test code = 14.6 % 12.1-15.4 788-0) PLT (test code = See_Comment L [Automated 777-3) message] The sy stem which generated this result transmitted reference range : 150 - 328 10*3/ ?L. The reference r corey was not used to interpret this result as normal/abnormal . MPV (test code = 9.9 fL 9.8-13 35903-5) NRBC/100 WBC (test See_Comment [Automat ed code = 2323738133) message] The system which generated this result transmitted reference range : 0.0 - 10.0 /100 WBCs. The refer ence range was not u sed to interpret th is result as normal/abnormal . NRBC x10^3 (test code <0.01 See_Comment [Auto mated = 4635082779) message] The s ystem which generated this result transmitted reference range : 10*3/?L. The reference range was not used to interpret this result as normal/abnormal . GRAN MAT (NEUT) % 55.3 % (test code = 770-8) IMM GRAN % (test code 0.20 % = 1974550217) LYMPH % (test code = 28.3 % 736-9) MONO % (test code = 12.6 % 5905-5) EOS % (test code = 3.1 % 713-8) BASO % (test code = 0.5 % 706-2) GRAN MAT x10^3(ANC) 3.20 10*3/uL 1.99-6.95 (test code = 0062702756) IMM GRAN x10^3 (test <0.03 0-0.06 code = 9536917323) LYMPH x10^3 (test code 1.64 10*3/uL 1.09-3.23 = 731-0) MONO x10^3 (test code 0.73 10*3/uL 0.36-1.02 = 742-7) EOS x10^3 (test code = 0.18 10*3/uL 0.06-0.53 711-2) BASO x10^3 (test code 0.03 10*3/uL 0.01-0.09 = 704-7) Lab Interpretation Abnormal (test code = 55290-0) [facility] WITH [id number] 23:57:00 Test Item Value Reference Range Interpretation [...] RDW-SD (test code = 49.6 fL 38.5-51.6 66402-8) RDW-CV (test code = 14.6 % 12.1-15.4 788-0) PLT (test code = See_Comment L [Automated 777-3) message] The sy stem which generated this result transmitted reference range : 150 - 328 10*3/ ?L. The reference r corey was not used to interpret this result as normal/abnormal . MPV (test code = 9.9 fL 9.8-13 29711-6) NRBC/100 WBC (test See_Comment [Automat ed code = 3479256835) message] The system which generated this result transmitted reference range : 0.0 - 10.0 /100 WBCs. The refer ence range was not u sed to interpret th is result as normal/abnormal . NRBC x10^3 (test code <0.01 See_Comment [Auto mated = 6698129113) message] The s ystem which generated this result transmitted reference range : 10*3/?L. The reference range was not used to interpret this result as normal/abnormal . GRAN MAT (NEUT) % 55.3 % (test code = 770-8) IMM GRAN % (test code 0.20 % = 5652244073) LYMPH % (test code = 28.3 % 736-9) MONO % (test code = 12.6 % 5905-5) EOS % (test code = 3.1 % 713-8) BASO % (test code = 0.5 % 706-2) GRAN MAT x10^3(ANC) 3.20 10*3/uL 1.99-6.95 (test code = 8960987560) IMM GRAN x10^3 (test <0.03 0-0.06 code = 1454334323) LYMPH x10^3 (test code 1.64 10*3/uL 1.09-3.23 = 731-0) MONO x10^3 (test code 0.73 10*3/uL 0.36-1.02 = 742-7) EOS x10^3 (test code = 0.18 10*3/uL 0.06-0.53 711-2) BASO x10^3 (test code 0.03 10*3/uL 0.01-0.09 = 704-7) Lab Interpretation Abnormal (test code = 46573-3) [facility] [facility]-19 [id number] 21:48:00 Test Item Value Reference Range Interpretation Comments SARS-CoV-2 (test code = Not Detected Not Detected 72075-6) ALYSSA (test code = ALYSSA) ID NOW COVID-19 Assay is an isothermal nucleic acid amplification test intended for the qualitative detection of nucleic acid from SARS-CoV-2 viral RNA in nasopharyngeal (HEALTH IT SPECIALIST) specimens. It is used under Emergency Use [...] indicated. Lab Interpretation Normal (test code = 92822-4) [facility] CenterTrop[facility] [id number] 21:44:00 Test Item Value Reference Range Interpretation Comments TROPONIN I (test 0.027 ng/mL See_Comment [Automated code = 5625762076) message] The system which generated this result [...] ? Lab Interpretation Normal (test code = 41754-1) [facility] CenterProthrombin Time (PT) / [id number] 21:41:00 Test Item Value Reference Range Interpretation [...] tions. Lab Interpretation (test Normal code = 99242-1) [facility] CenterN-TERMINAL [id number] 21:39:00 Test Item Value Reference Range Interpretation Comments NT-proBNP (test code 663 pg/mL See_Comment H [Autom ated = 4325398156) message] The system which generated this result transmitted reference range : <=450. The reference range was not used to interpret this result as normal/abnormal . ALYSSA (test code = ALYSSA) Biotin has been reported to cause a negative bias, interpret results relative to patient's use of biotin. Lab Interpretation Abnormal (test code = 76668-6) [facility]. METABOLIC PANEL (26602)2020-03-21 21:37:00 Test Item Value Reference Range Interpretation Comments NA (test code = 139 mmol/L 135-145 8776906152) K (test code = 4.1 mmol/L 3.5-5 0867803910) CL (test code = 102 mmol/L 98-108 7502020486) CO2 TOTAL (test code = 29 mmol/L 23-31 8087280208) AGAP (test code = 2-16 1608420521) BUN (test code = 18 mg/dL 7-23 5317553382) GLUCOSE (test code = 277 mg/dL 70-110 H 0372579236) CREATININE (test code = 1.23 mg/dL 0.6-1.25 7883232977) TOTAL BILI (test code = 1.3 mg/dL 0.1-1.1 H 3951537173) CALCIUM (test code = 9.8 mg/dL 8.6-10.6 6430200276) T PROTEIN (test code = 7.0 g/dL 6.3-8.2 8856542935) ALBUMIN (test code = 4.2 g/dL 3.5-5 5704560612) ALK PHOS (test code = 50 U/L 34-122 2873621149) ALTv (test code = 15 U/L 5-50 1742-6) AST(SGOT) (test code = 22 U/L 13-40 2213626738) eGFR Calculation mL/min/1.73m2 (Non-) (test code = 0582058420) eGFR Calculation mL/min/1.73m2 () (test code = 6793065023) ALYSSA (test code = ALYSSA) Association of [...] tests). Lab Interpretation Abnormal (test code = 99452-6) [facility] CenterLipase [id number] 21:37:00 Test Item Value Reference Range Interpretation Comments LIPASE (test code = 1710381616) 161 U/L 0-220 Lab Interpretation (test code = Normal 11990-4) [facility] CenterChes 1 [id number] 20:46:31HISTORY: Chest pain. TECHNIQUE: Portable AP view of the chest is obtained. Comparison made with03/04/2020 study. FINDINGS: No acute pneumonia. No pneumothorax or pleural effusion orpulmonary congestion detected. Mild cardiomegaly and intrathecal electrodesin lower thoracic spinal canal noted. Mild thoracolumbar scoliosis noted. CONCLUSIONS: Mild cardiomegaly.[facility], [facility] Results Inft User - 03/21/2020 3:47 PM CDTHISTORY: Chest pain.TECHNIQUE: Portable AP view of the chest is obtained. Comparison made with03/04/2020 study.FINDINGS: No acute pneumonia. No pneumothorax or pleural effusion orpulmonary congestion detected. Mild cardiomegaly and intrathecal electrodesin lower thoracic spinal canal noted. Mild thoracolumbar scoliosis noted.CONCLUSIONS: Mild cardiomegaly. [facility] CenterLakyic Acid Whole [id number] 20:43:00 Test Item Value Reference Range Interpretation Comments LACTIC ACID (test code = 1.91 mmol/L 0.3-2.6 6735853527) [facility] GLUCOSE (AUTOMATED)2020-03-07 20:58:00 Test Item Value Reference Range Interpretation Comments POCT GLU (test code = 0400972267) 216 mg/dL 70-110 H Lab Interpretation (test code = Abnormal 40893-5) [facility] GLUCOSE (AUTOMATED)2020-03-07 16:00:00 Test Item Value Reference Range Interpretation Comments POCT GLU (test code = 5206478347) 168 mg/dL 70-110 H Lab Interpretation (test code = Abnormal 27482-1) [facility] GLUCOSE (AUTOMATED)2020-03-07 13:07:00 Test Item Value Reference Range Interpretation Comments POCT GLU (test code = 1456846235) 148 mg/dL 70-110 H Lab Interpretation (test code = Abnormal 12692-9) [facility] CenterTROPONIN [id number] 11:27:00 Test Item Value Reference Range Interpretation Comments TROPONIN I (test 0.051 ng/mL See_Comment H [Automated code = 5596063462) message] The system which generated this result [...] ? Lab Interpretation Abnormal (test code = 84677-4) [facility] CenterN-TERMINAL [id number] 11:24:00 Test Item Value Reference Range Interpretation Comments NT-proBNP (test code 336 pg/mL See_Comment [Autom ated = 0116484980) message] The system which generated this result transmitted reference range : <=450. The reference range was not used to interpret this result as normal/abnormal . ALYSSA (test code = ALYSSA) Biotin has been reported to cause a negative bias, interpret results relative to patient's use of biotin. Lab Interpretation Normal (test code = 71276-6) [facility] CenterBasi Metabolic Panel (NA, K, CL, CO2, GLUCOSE, BUN, CREATININE, CA)2020-03-07 11:14:00 Test Item Value Reference Range Interpretation Comments NA (test code = 138 mmol/L 135-145 8284182569) K (test code = 3.8 mmol/L 3.5-5 4899977697) CL (test code = 97 mmol/L 98-108 L 1579138637) CO2 TOTAL (test code = 30 mmol/L 23-31 8928881608) AGAP (test code = 2-16 9180950984) BUN (test code = 36 mg/dL 7-23 H 7437163691) GLUCOSE (test code = 140 mg/dL 70-110 H 6194513549) CREATININE (test code = 1.50 mg/dL 0.6-1.25 H 9800810215) CALCIUM (test code = 10.0 mg/dL 8.6-10.6 8229585415) eGFR Calculation mL/min/1.73m2 (Non-) (test code = 7102779411) eGFR Calculation mL/min/1.73m2 () (test code = 1217444610) ALYSSA (test code = ALYSSA) Association of [...] tests). Lab Interpretation Abnormal (test code = 28402-7) [facility] CenterURIC [id number] 11:14:00 Test Item Value Reference Range Interpretation Comments URIC ACID (test code = 2216259708) 5.4 mg/dL 3.6-8 Lab Interpretation (test code = Normal 46550-5) [facility] CenterCB WITH [id number] 10:53:00 Test Item Value Reference Range Interpretation Comments WBC (test code = See_Comment [Automated 5041-2) message] The sy stem which generated this result transmitted reference range : 4.20 - 10.70 10*3/?L. The reference range was not used to interpret this result as normal/abnormal . RBC (test code = See_Comment L [Automated 906-4) message] The sy stem which generated this [...] RDW-SD (test code = 45.1 fL 38.5-51.6 48512-5) RDW-CV (test code = 14.2 % 12.1-15.4 788-0) PLT (test code = See_Comment [Automated 777-3) message] The sy stem which generated this result transmitted reference range : 150 - 328 10*3/ ?L. The reference r corey was not used to interpret this result as normal/abnormal . MPV (test code = 9.8 fL 9.8-13 70736-5) NRBC/100 WBC (test See_Comment [Automat ed code = 2525006429) message] The system which generated this result transmitted reference range : 0.0 - 10.0 /100 WBCs. The refer ence range was not u sed to interpret th is result as normal/abnormal . NRBC x10^3 (test code <0.01 See_Comment [Auto mated = 3397460630) message] The s ystem which generated this result transmitted reference range : 10*3/?L. The reference range was not used to interpret this result as normal/abnormal . GRAN MAT (NEUT) % 51.0 % (test code = 770-8) IMM GRAN % (test code 0.50 % = 4914710904) LYMPH % (test code = 32.0 % 736-9) MONO % (test code = 11.3 % 5905-5) EOS % (test code = 4.3 % 713-8) BASO % (test code = 0.9 % 706-2) GRAN MAT x10^3(ANC) 2.85 10*3/uL 1.99-6.95 (test code = 4161226790) IMM GRAN x10^3 (test 0.03 10*3/uL 0-0.06 code = 8889452508) LYMPH x10^3 (test code 1.79 10*3/uL 1.09-3.23 = 731-0) MONO x10^3 (test code 0.63 10*3/uL 0.36-1.02 = 742-7) EOS x10^3 (test code = 0.24 10*3/uL 0.06-0.53 711-2) BASO x10^3 (test code 0.05 10*3/uL 0.01-0.09 = 704-7) Lab Interpretation Abnormal (test code = 60575-7) [facility] GLUCOSE (AUTOMATED)2020-03-06 22:46:00 Test Item Value Reference Range Interpretation Comments POCT GLU (test code = 9592943516) 209 mg/dL 70-110 H Lab Interpretation (test code = Abnormal 38791-0) [facility] GLUCOSE (AUTOMATED)2020-03-06 16:23:00 Test Item Value Reference Range Interpretation Comments POCT GLU (test code = 7568602626) 254 mg/dL 70-110 H Lab Interpretation (test code = Abnormal 19319-8) [facility] GLUCOSE (AUTOMATED)2020-03-06 12:51:00 Test Item Value Reference Range Interpretation Comments POCT GLU (test code = 0121086754) 126 mg/dL 70-110 H Lab Interpretation (test code = Abnormal 95829-7) [facility] CenterTROPONIN [id number] 10:16:00 Test Item Value Reference Range Interpretation Comments TROPONIN I (test 0.056 ng/mL See_Comment H [Automated code = 5724617386) message] The system which generated this result [...] ? Lab Interpretation Abnormal (test code = 69791-4) [facility] Metabolic Panel (NA, K, CL, CO2, GLUCOSE, BUN, CREATININE, CA)2020-03-06 10:13:00 Test Item Value Reference Range Interpretation Comments NA (test code = 136 mmol/L 135-145 4960509245) K (test code = 4.1 mmol/L 3.5-5 6698949795) CL (test code = 95 mmol/L 98-108 L 1043860712) CO2 TOTAL (test code = 30 mmol/L 23-31 6881435734) AGAP (test code = 2-16 7868913088) BUN (test code = 35 mg/dL 7-23 H 3807092855) GLUCOSE (test code = 174 mg/dL 70-110 H 8391806667) CREATININE (test code = 1.67 mg/dL 0.6-1.25 H 4841549151) CALCIUM (test code = 9.7 mg/dL 8.6-10.6 6497061428) eGFR Calculation mL/min/1.73m2 (Non-) (test code = 2237264940) eGFR Calculation mL/min/1.73m2 () (test code = 2763004589) ALYSSA (test code = ALYSSA) Association of [...] tests). Lab Interpretation Abnormal (test code = 93479-4) [facility] WITH [id number] 09:16:00 Test Item Value Reference Range Interpretation Comments WBC (test code = See_Comment [Automated 1790-2) message] The sy stem which generated this result transmitted reference range : 4.20 - 10.70 10*3/?L. The reference range was not used to interpret this result as normal/abnormal . RBC (test code = See_Comment L [Automated 489-8) message] The sy stem which generated this [...] RDW-SD (test code = 45.6 fL 38.5-51.6 09306-3) RDW-CV (test code = 14.3 % 12.1-15.4 788-0) PLT (test code = See_Comment [Automated 777-3) message] The sy stem which generated this result transmitted reference range : 150 - 328 10*3/ ?L. The reference r corey was not used to interpret this result as normal/abnormal . MPV (test code = 9.8 fL 9.8-13 03549-2) NRBC/100 WBC (test See_Comment [Automat ed code = 1450599200) message] The system which generated this result transmitted reference range : 0.0 - 10.0 /100 WBCs. The refer ence range was not u sed to interpret th is result as normal/abnormal . NRBC x10^3 (test code <0.01 See_Comment [Auto mated = 1468536047) message] The s ystem which generated this result transmitted reference range : 10*3/?L. The reference range was not used to interpret this result as normal/abnormal . GRAN MAT (NEUT) % 56.1 % (test code = 770-8) IMM GRAN % (test code 0.10 % = 5750945674) LYMPH % (test code = 29.7 % 736-9) MONO % (test code = 9.6 % 5905-5) EOS % (test code = 3.8 % 713-8) BASO % (test code = 0.7 % 706-2) GRAN MAT x10^3(ANC) 3.79 10*3/uL 1.99-6.95 (test code = 6540781810) IMM GRAN x10^3 (test <0.03 0-0.06 code = 5344418238) LYMPH x10^3 (test code 2.01 10*3/uL 1.09-3.23 = 731-0) MONO x10^3 (test code 0.65 10*3/uL 0.36-1.02 = 742-7) EOS x10^3 (test code = 0.26 10*3/uL 0.06-0.53 711-2) BASO x10^3 (test code 0.05 10*3/uL 0.01-0.09 = 704-7) Lab Interpretation Abnormal (test code = 95923-0) [facility] GLUCOSE (AUTOMATED)2020-03-06 01:25:00 Test Item Value Reference Range Interpretation Comments POCT GLU (test code = 5653871053) 208 mg/dL 70-110 H Lab Interpretation (test code = Abnormal 16387-7) [facility] [id number] 00:08:00 Test Item Value Reference Range Interpretation Comments TROPONIN I (test 0.047 ng/mL See_Comment H [Automated code = 2814746005) message] The system which generated this result [...] ? Lab Interpretation Abnormal (test code = 77171-0) [facility] GLUCOSE (AUTOMATED)2020-03-05 21:19:00 Test Item Value Reference Range Interpretation Comments POCT GLU (test code = 6289931816) 234 mg/dL 70-110 H Lab Interpretation (test code = Abnormal 47679-8) [facility] GLUCOSE (AUTOMATED)2020-03-05 16:55:00 Test Item Value Reference Range Interpretation Comments POCT GLU (test code = 7900567290) 258 mg/dL 70-110 H Lab Interpretation (test code = Abnormal 45924-6) [facility] GLUCOSE (AUTOMATED)2020-03-05 12:59:00 Test Item Value Reference Range Interpretation Comments POCT GLU (test code = 6277807191) 194 mg/dL 70-110 H Lab Interpretation (test code = Abnormal 84319-1) [facility] CenterTROPONIN [id number] 10:54:00 Test Item Value Reference Range Interpretation Comments TROPONIN I (test 0.071 ng/mL See_Comment H [Automated code = 2232469768) message] The system which generated this result [...] ? Lab Interpretation Abnormal (test code = 57629-2) [facility] (NA, K, CL, CO2, GLUCOSE, BUN, CREATININE, CA)2020-03-05 10:43:00 Test Item Value Reference Range Interpretation Comments NA (test code = 139 mmol/L 135-145 1289216066) K (test code = 4.1 mmol/L 3.5-5 6946877293) CL (test code = 101 mmol/L 98-108 4207269759) CO2 TOTAL (test code = 27 mmol/L 23-31 1932371695) AGAP (test code = 2-16 9098660284) BUN (test code = 25 mg/dL 7-23 H 6578860963) GLUCOSE (test code = 243 mg/dL 70-110 H 8211727490) CREATININE (test code = 1.22 mg/dL 0.6-1.25 7267418002) CALCIUM (test code = 9.8 mg/dL 8.6-10.6 9722767299) eGFR Calculation mL/min/1.73m2 (Non-) (test code = 8060338049) eGFR Calculation mL/min/1.73m2 () (test code = 4449546272) ALYSSA (test code = ALYSSA) Association of [...] tests). Lab Interpretation Abnormal (test code = 02475-1) [facility] WITH [id number] 10:23:00 Test Item Value Reference Range Interpretation Comments WBC (test code = See_Comment [Automated message] 6690-2) The system [employer] generated this result transmitted ref erence range: 4.20 - 1 0.70 10*3/?L. The re ference range was not u sed to interpret this result as normal/abnor mal. RBC (test code = See_Comment [Automated message] 789-8) The system [employer] generated this result transmitted ref erence range: [...] RDW-SD (test code 47.8 fL 38.5-51.6 = 48746-9) RDW-CV (test code 14.4 % 12.1-15.4 = 788-0) PLT (test code = See_Comment [Automated message] 777-3) The system [employer] generated this result transmitted ref erence range: 150 - 32 8 10*3/?L. The re ference range was not u sed to interpret this result as normal/abnor mal. MPV (test code = 9.8 fL 9.8-13 34472-9) NRBC/100 WBC (test See_Comment [Automat ed message] code = 5658337440) The syste m which generated this result transmitted ref erence range: 0.0 - 10 .0 /100 WBCs. The refer ence range was not u sed to interpret this result as normal/abnor mal. NRBC x10^3 (test <0.01 See_Comment [Automated message] code = 5550835150) The syste m which generated this result transmitted ref erence range: 10*3/?L. The reference range was not used to interpr et this result as normal/abnormal . GRAN MAT (NEUT) % 48.8 % (test code = 770-8) IMM GRAN % (test 0.20 % code = 6447716584) LYMPH % (test code 34.7 % = 736-9) MONO % (test code 10.8 % = 5905-5) EOS % (test code = 4.9 % 713-8) BASO % (test code 0.6 % = 706-2) GRAN MAT 2.49 10*3/uL 1.99-6.95 x10^3(ANC) (test code = 5916400015) IMM GRAN x10^3 <0.03 0-0.06 (test code = 9031322020) LYMPH x10^3 (test 1.77 10*3/uL 1.09-3.23 code = 731-0) MONO x10^3 (test 0.55 10*3/uL 0.36-1.02 code = 742-7) EOS x10^3 (test 0.25 10*3/uL 0.06-0.53 code = 711-2) BASO x10^3 (test 0.03 10*3/uL 0.01-0.09 code = 704-7) [facility] CenterXR CHEST 1 [id number] 03:06:08 No acute cardiopulmonary process. Unchanged enlargement [...] reviewed this study and agree with the abovereport.[facility] CORONAVIRUS COVID-19 [id number] 00:34:00 Test Item Value Reference Range Interpretation Comments SARS-CoV-2 (test code = Not Detected Not Detected 18217-9) ALYSSA (test code = ALYSSA) ID NOW COVID-19 Assay is an isothermal nucleic acid amplification test intended for the qualitative detection of nucleic acid from SARS-CoV-2 viral RNA in nasopharyngeal (HEALTH IT SPECIALIST) specimens. It is used under Emergency Use [...] indicated. Lab Interpretation Normal (test code = 31390-6) [facility] CenterTroponin [id number] 00:08:00 Test Item Value Reference Range Interpretation Comments TROPONIN I (test 0.056 ng/mL See_Comment H [Automated code = 2062798267) message] The system which generated this result [...] ? Lab Interpretation Abnormal (test code = 69725-0) [facility] CenterN-TERMINAL [id number] 00:04:00 Test Item Value Reference Range Interpretation Comments NT-proBNP (test code 562 pg/mL See_Comment H [Autom ated = 9111911963) message] The system which generated this result transmitted reference range : <=450. The reference range was not used to interpret this result as normal/abnormal . ALYSSA (test code = ALYSSA) Biotin has been reported to cause a negative bias, interpret results relative to patient's use of biotin. Lab Interpretation Abnormal (test code = 93662-5) [facility] CenterProthrombin Time (PT) / [id number] 23:57:00 Test Item Value Reference Range Interpretation [...] tions. Lab Interpretation (test Normal code = 37181-5) [facility] CenterBasi Metabolic Panel (NA, K, CL, CO2, GLUCOSE, BUN, CREATININE, CA)2020-03-04 23:56:00 Test Item Value Reference Range Interpretation Comments NA (test code = 139 mmol/L 135-145 7711815946) K (test code = 4.1 mmol/L 3.5-5 2367488632) CL (test code = 102 mmol/L 98-108 0603813460) CO2 TOTAL (test code = 29 mmol/L 23-31 0645303964) AGAP (test code = 2-16 8340342616) BUN (test code = 23 mg/dL 7-23 1305303859) GLUCOSE (test code = 193 mg/dL 70-110 H 0457604983) CREATININE (test code = 1.25 mg/dL 0.6-1.25 4480654262) CALCIUM (test code = 9.7 mg/dL 8.6-10.6 4159038724) eGFR Calculation mL/min/1.73m2 (Non-) (test code = 6100050101) eGFR Calculation mL/min/1.73m2 () (test code = 7687911339) ALYSSA (test code = ALYSSA) Association of [...] tests). Lab Interpretation Abnormal (test code = 04586-4) [facility] CenterHepatic Function Panel (ALB, T.PRO, BILI T, BU/BC, ALT, AST, ALK PHOS)2020-03-04 23:56:00 Test Item Value Reference Range Interpretation Comments TOTAL BILI (test code = 7398098159) 1.1 mg/dL 0.1-1.1 BILI UNCON (test code = 1535965212) 1.1 mg/dL 0.1-1.1 BILI CONJ (test code = 6904285681) 0.0 mg/dL 0-0.3 T PROTEIN (test code = 8219136435) 7.1 g/dL 6.3-8.2 ALBUMIN (test code = 7694816371) 4.1 g/dL 3.5-5 ALK PHOS (test code = 0708638997) 61 U/L 34-122 ALTv (test code = 1742-6) 16 U/L 5-50 AST(SGOT) (test code = 9502025716) 23 U/L 13-40 Lab Interpretation (test code = Normal 36533-7) [facility] CenterLipase [id number] 23:56:00 Test Item Value Reference Range Interpretation Comments LIPASE (test code = 7033251559) 149 U/L 0-220 Lab Interpretation (test code = Normal 03525-4) [facility] CenteraPTT2020-04-19 23:56:00 Test Item Value Reference Range Interpretation [...] seconds. Lab Interpretation Normal (test code = 54607-0) [facility] CenterCBC WITH [id number] 23:46:00 Test Item Value Reference Range Interpretation Comments WBC (test code = See_Comment [Automated 7790-2) message] The sy stem which generated this result transmitted reference range : 4.20 - 10.70 10*3/?L. The reference range was not used to interpret this result as normal/abnormal . RBC (test code = See_Comment L [Automated 069-8) message] The sy stem which generated this [...] RDW-SD (test code = 48.3 fL 38.5-51.6 72562-0) RDW-CV (test code = 14.7 % 12.1-15.4 788-0) PLT (test code = See_Comment [Automated 777-3) message] The sy stem which generated this result transmitted reference range : 150 - 328 10*3/ ?L. The reference r corey was not used to interpret this result as normal/abnormal . MPV (test code = 9.8 fL 9.8-13 00927-9) NRBC/100 WBC (test See_Comment [Automat ed code = 8532493522) message] The system which generated this result transmitted reference range : 0.0 - 10.0 /100 WBCs. The refer ence range was not u sed to interpret th is result as normal/abnormal . NRBC x10^3 (test code <0.01 See_Comment [Auto mated = 5011385760) message] The s ystem which generated this result transmitted reference range : 10*3/?L. The reference range was not used to interpret this result as normal/abnormal . GRAN MAT (NEUT) % 60.1 % (test code = 770-8) IMM GRAN % (test code 0.20 % = 5190521713) LYMPH % (test code = 26.4 % 736-9) MONO % (test code = 9.9 % 5905-5) EOS % (test code = 2.8 % 713-8) BASO % (test code = 0.6 % 706-2) GRAN MAT x10^3(ANC) 3.17 10*3/uL 1.99-6.95 (test code = 9717176194) IMM GRAN x10^3 (test <0.03 0-0.06 code = 7429376672) LYMPH x10^3 (test code 1.39 10*3/uL 1.09-3.23 = 731-0) MONO x10^3 (test code 0.52 10*3/uL 0.36-1.02 = 742-7) EOS x10^3 (test code = 0.15 10*3/uL 0.06-0.53 711-2) BASO x10^3 (test code 0.03 10*3/uL 0.01-0.09 = 704-7) Lab Interpretation Abnormal (test code = 54221-6) [facility] GLUCOSE (AUTOMATED)2020-03-02 16:04:00 Test Item Value Reference Range Interpretation Comments POCT GLU (test code = 7843429079) 214 mg/dL 70-110 H Lab Interpretation (test code = Abnormal 10116-9) [facility] GLUCOSE (AUTOMATED)2020-03-02 16:04:00 Test Item Value Reference Range Interpretation Comments POCT GLU (test code = 6431409672) 271 mg/dL 70-110 H Lab Interpretation (test code = Abnormal 51645-8) [facility] CenterN-[facility]MINAL [id number] 09:43:00 Test Item Value Reference Range Interpretation Comments NT-proBNP (test code 1670 pg/mL See_Comment H [Autom ated = 4064857089) message] The system which generated this result transmitted reference range : <=450. The reference range was not used to interpret this result as normal/abnormal . ALYSSA (test code = ALYSSA) Biotin has been reported to cause a negative bias, interpret results relative to patient's use of biotin. Lab Interpretation Abnormal (test code = 57178-7) [facility] METABOLIC PANEL (NA, K, CL, CO2, GLUCOSE, BUN, CREATININE, CA)2020-03-02 09:33:00 Test Item Value Reference Range Interpretation Comments NA (test code = 143 mmol/L 135-145 4020694933) K (test code = 3.8 mmol/L 3.5-5 5605722241) CL (test code = 105 mmol/L 98-108 1577188710) CO2 TOTAL (test code = 28 mmol/L 23-31 2759064032) AGAP (test code = 2-16 3002087639) BUN (test code = 19 mg/dL 7-23 6766313067) GLUCOSE (test code = 152 mg/dL 70-110 H 5731987757) CREATININE (test code = 1.18 mg/dL 0.6-1.25 5012040122) CALCIUM (test code = 9.0 mg/dL 8.6-10.6 6950851655) eGFR Calculation mL/min/1.73m2 (Non-) (test code = 8040081569) eGFR Calculation mL/min/1.73m2 () (test code = 1687035529) ALYSSA (test code = ALYSSA) Association of [...] tests). Lab Interpretation Abnormal (test code = 52723-9) [facility] Test Item Value Reference Range Interpretation Comments MAGNESIUM (test code = 4542284807) 1.8 mg/dL 1.7-2.4 Lab Interpretation (test code = Normal 42013-2) [facility]2020-[facility]-01 20:42:00 Test Item Value Reference Range Interpretation Comments POCT GLU (test code = 9659372411) 231 mg/dL 70-110 H Lab Interpretation (test code = Abnormal 02359-6) [facility] CenterVITAMIN B12, [id number] 11:51:00 Test Item Value Reference Range Interpretation Comments VIT B12 (test code = 325 pg/mL 240-930 2069332368) ALYSSA (test code = ALYSSA) Biotin has been reported to cause a positive bias, interpret results relative to patient's use of biotin. Lab Interpretation (test Normal code = 72014-3) [facility] 11[facility]00 Test Item Value Reference Range Interpretation Comments FOLATE SER (test code = >20.0 3-20 H Slig ht hemolysis 2533926666) Lab Interpretation (test Abnormal code = 90520-9) [facility] CenterPROCALCITONIN2020-04-16 10:49:00 Test Item Value Reference Range Interpretation Comments Procalcitonin (test 3.05 ng/mL <0.07 H code = 7820753501) ALYSSA (test code = ALYSSA) INTERPRETATION OF [...] lung abscess/empyema. For further information please refer to:[email or web address] Lab Interpretation Abnormal (test code = 24452-7) [facility] CenterKARINSANTOS [id number] 09:58:00 Test Item Value Reference Range Interpretation Comments TROPONIN I (test 0.093 ng/mL See_Comment H [Automated code = 4016877763) message] The system which generated this result [...] ? Lab Interpretation Abnormal (test code = 85209-0) [facility] CenterN-TERMINAL [id number] 09:55:00 Test Item Value Reference Range Interpretation Comments NT-proBNP (test code 4450 pg/mL See_Comment H [Autom ated = 5343497436) message] The system which generated this result transmitted reference range : <=450. The reference range was not used to interpret this result as normal/abnormal . ALYSSA (test code = ALYSSA) Biotin has been reported to cause a negative bias, interpret results relative to patient's use of biotin. Lab Interpretation Abnormal (test code = 24412-4) [facility] CenterBasi Metabolic Panel (NA, K, CL, CO2, GLUCOSE, BUN, CREATININE, CA)2020-03-01 09:50:00 Test Item Value Reference Range Interpretation Comments NA (test code = 141 mmol/L 135-145 0415210910) K (test code = 3.5 mmol/L 3.5-5 3222003038) CL (test code = 105 mmol/L 98-108 8645820164) CO2 TOTAL (test code = 26 mmol/L 23-31 9160402229) AGAP (test code = 2-16 0077751479) BUN (test code = 13 mg/dL 7-23 6804451963) GLUCOSE (test code = 219 mg/dL 70-110 H 4739145099) CREATININE (test code = 1.01 mg/dL 0.6-1.25 9874912640) CALCIUM (test code = 8.7 mg/dL 8.6-10.6 5703851394) eGFR Calculation mL/min/1.73m2 (Non-) (test code = 1182616403) eGFR Calculation mL/min/1.73m2 () (test code = 2638256260) ALYSSA (test code = ALYSSA) Association of [...] tests). Lab Interpretation Abnormal (test code = 91275-9) [facility] [id number] 09:50:00 Test Item Value Reference Range Interpretation Comments MAGNESIUM (test code = 8298014025) 1.9 mg/dL 1.7-2.4 Lab Interpretation (test code = Normal 71676-9) [facility] WITH [id number] 09:22:00 Test Item Value Reference Range Interpretation [...] RDW-SD (test code = 47.8 fL 38.5-51.6 52957-0) RDW-CV (test code = 14.8 % 12.1-15.4 788-0) PLT (test code = See_Comment L [Automated 777-3) message] The sy stem which generated this result transmitted reference range : 150 - 328 10*3/ ?L. The reference r corey was not used to interpret this result as normal/abnormal . MPV (test code = 9.9 fL 9.8-13 35063-0) NRBC/100 WBC (test See_Comment [Automat ed code = 7187505327) message] The system which generated this result transmitted reference range : 0.0 - 10.0 /100 WBCs. The refer ence range was not u sed to interpret th is result as normal/abnormal . NRBC x10^3 (test code <0.01 See_Comment [Auto mated = 5827062569) message] The s ystem which generated this result transmitted reference range : 10*3/?L. The reference range was not used to interpret this result as normal/abnormal . GRAN MAT (NEUT) % 66.0 % (test code = 770-8) IMM GRAN % (test code 0.30 % = 2976745584) LYMPH % (test code = 20.8 % 736-9) MONO % (test code = 9.5 % 5905-5) EOS % (test code = 2.8 % 713-8) BASO % (test code = 0.6 % 706-2) GRAN MAT x10^3(ANC) 4.44 10*3/uL 1.99-6.95 (test code = 7017569167) IMM GRAN x10^3 (test <0.03 0-0.06 code = 5690025620) LYMPH x10^3 (test code 1.40 10*3/uL 1.09-3.23 = 731-0) MONO x10^3 (test code 0.64 10*3/uL 0.36-1.02 = 742-7) EOS x10^3 (test code = 0.19 10*3/uL 0.06-0.53 711-2) BASO x10^3 (test code 0.04 10*3/uL 0.01-0.09 = 704-7) Lab Interpretation Abnormal (test code = 83761-9) [facility] CenterGLYCOSYLATED HEMOGLOBIN (A1C)2020-03-01 06:49:00 Test Item Value Reference [...] Indicated Lab Interpretation Abnormal (test code = 80370-4) [facility] CenterURIC [id number] 06:25:00 Test Item Value Reference Range Interpretation Comments URIC ACID (test code = 6179906327) 2.3 mg/dL 3.6-8 L Lab Interpretation (test code = Abnormal 89065-3) [facility] CenterSEDIMENTATION [id number] 05:25:00 Test Item Value Reference Range Interpretation Comments ESR (test code = See_Comment H [Automated message] 0919997625) The system [employer] h generated this result transmitted ref erence range: 0 - 10 m m/HR. The reference r corey was not used to interpret this result as normal/abnor mal. Lab Interpretation (test Abnormal code = 47361-2) [facility] CenterN-TERMINAL [id number] 04:07:00 Test Item Value Reference Range Interpretation Comments NT-proBNP (test code 4080 pg/mL See_Comment H [Autom ated = 3956663666) message] The system which generated this result transmitted reference range : <=450. The reference range was not used to interpret this result as normal/abnormal . ALYSSA (test code = ALYSSA) Biotin has been reported to cause a negative bias, interpret results relative to patient's use of biotin. Lab Interpretation Abnormal (test code = 11604-5) [facility] CenterPOCT GLUCOSE (AUTOMATED)2020-03-01 03:42:00 Test Item Value Reference Range Interpretation Comments POCT GLU (test code = 3875006235) 190 mg/dL 70-110 H Lab Interpretation (test code = Abnormal 30552-9) [facility] CenterTROPONIN [id number] 03:30:00 Test Item Value Reference Range Interpretation Comments TROPONIN I (test 0.098 ng/mL See_Comment H [Automated code = 8944828951) message] The system which generated this result [...] ? Lab Interpretation Abnormal (test code = 81893-2) [facility] CenterHEPATIC FUNCTION PANEL (94313) (ALB,T.PRO,BILI T,BU/BC,ALT,AST,ALK PHOS)2020-03-01 03:24:00 Test Item Value Reference Range Interpretation Comments TOTAL BILI (test code = 3067497896) 2.2 mg/dL 0.1-1.1 H BILI UNCON (test code = 0438690880) 2.0 mg/dL 0.1-1.1 H BILI CONJ (test code = 6204884865) 0.0 mg/dL 0-0.3 T PROTEIN (test code = 9095536452) 6.7 g/dL 6.3-8.2 ALBUMIN (test code = 1927868386) 4.0 g/dL 3.5-5 ALK PHOS (test code = 1538618577) 48 U/L 34-122 ALTv (test code = 1742-6) 18 U/L 5-50 AST(SGOT) (test code = 3456136039) 57 U/L 13-40 H Lab Interpretation (test code = Abnormal 01111-5) [facility] CenterPhosphorus [id number] 03:17:00 Test Item Value Reference Range Interpretation Comments PHOSPHORUS (test code = 3.1 mg/dL 2.5-5 Slig ht hemolysis 2859955572) Lab Interpretation (test Normal code = 33694-5) [facility] CenterPROTHROMBIN TIME / [id number] 03:08:00 Test Item Value Reference Range Interpretation [...] tions. Lab Interpretation (test Normal code = 90454-8) [facility] CenterCREATINE [id number] 03:01:00 Test Item Value Reference Range Interpretation Comments CK (test code = 0192218497) 68 U/L 33-194 Lab Interpretation (test code = Normal 94863-9) [facility] CenterURIC [id number] 02:41:00 Test Item Value Reference Range Interpretation Comments URIC ACID (test code = 0420752275) 2.3 mg/dL 3.6-8 L Lab Interpretation (test code = Abnormal 31871-5) [facility] CenterTHYROID STIMULATING [id number] 02:26:00 Test Item Value Reference Range Interpretation Comments TSH (test code = See_Comment [Automated message] 0306300380) The system [employer] h generated this result transmitted ref erence range: 0.45 - 4 .70 mIU/L. The refe rence range was not u sed to interpret this result as normal/abnor mal. Lab Interpretation (test Normal code = 82677-3) [facility] CenterN-TERMINAL [id number] 02:04:00 Test Item Value Reference Range Interpretation Comments NT-proBNP (test code 4390 pg/mL See_Comment H [Autom ated = 0594685679) message] The system which generated this result transmitted reference range : <=450. The reference range was not used to interpret this result as normal/abnormal . ALYSSA (test code = ALYSSA) Biotin has been reported to cause a negative bias, interpret results relative to patient's use of biotin. Lab Interpretation Abnormal (test code = 71604-6) [facility] CenterMAGNESIUM2020-04-16 02:01:00 Test Item Value Reference Range Interpretation Comments MAGNESIUM (test code = 7414434212) 1.5 mg/dL 1.7-2.4 L Lab Interpretation (test code = Abnormal 71111-3) [facility] CenterLIPASE2020-04-16 00:22:00 Test Item Value Reference Range Interpretation Comments LIPASE (test code = 3830248914) 68 U/L 0-220 Lab Interpretation (test code = Normal 44538-7) [facility] CenterCORONAVIRUS COVID-19 [id number] 23:42:00 Test Item Value Reference Range Interpretation Comments SARS-CoV-2 (test code = Not Detected Not Detected 39895-1) ALYSSA (test code = ALYSSA) ID NOW COVID-19 Assay is an isothermal nucleic acid amplification test intended for the qualitative detection of nucleic acid from SARS-CoV-2 viral RNA in nasopharyngeal (HEALTH IT SPECIALIST) specimens. It is used under Emergency Use [...] indicated. Lab Interpretation Normal (test code = 29363-6) [facility] CenterXR CHEST 1 VW [id number] 23:26:02 No acute intrathoracic abnormality, specifically no radiographic findingsto suggest COVID-19 pneumonia. Disclaimer: Generally, the findings on chest imaging in COVID-19 are notspecific, and overlap with other infections, including influenza, H1N1,SARS and MERS. According to the Centers for Disease Control (CDC) and recent statement ofthe [employer], viral testing remains the [...] stimulating device overlie the mid thoracic spine. [facility], Radiant ResultsInft User - 02/29/2020 [...] Disease Control (CDC) and recent statement ofthe [employer], viral testing remains the only specificmethod of diagnosis. Confirmation with the viral test is required, even ifradiologic findings are suggestive of COVID-[address] Preliminary Report Dictated by Resident: Radu Boo MD., have reviewed this study and agree with theabovereport.[facility] CenterKarinopoab [id number] 22:59:00 Test Item Value Reference Range Interpretation Comments TROPONIN I (test 0.071 ng/mL See_Comment H [Automated code = 2276093023) message] The system which generated this result [...] ? Lab Interpretation Abnormal (test code = 57261-2) [facility] (NA, K, CL, CO2, GLUCOSE, BUN, CREATININE, CA)2020-02-29 22:48:00 Test Item Value Reference Range Interpretation Comments NA (test code = 141 mmol/L 135-145 6746792406) K (test code = 3.2 mmol/L 3.5-5 L 8318123353) CL (test code = 104 mmol/L 98-108 8449896072) CO2 TOTAL (test code = 25 mmol/L 23-31 4754773584) AGAP (test code = 2-16 9758226052) BUN (test code = 12 mg/dL 7-23 7472721371) GLUCOSE (test code = 250 mg/dL 70-110 H 2090012753) CREATININE (test code = 1.02 mg/dL 0.6-1.25 7410903837) CALCIUM (test code = 8.9 mg/dL 8.6-10.6 9752822167) eGFR Calculation mL/min/1.73m2 (Non-) (test code = 0596153375) eGFR Calculation mL/min/1.73m2 () (test code = 6337625681) ALYSSA (test code = ALYSSA) Association of [...] tests). Lab Interpretation Abnormal (test code = 23077-9) [facility] WITH [id number] 22:41:00 Test Item Value Reference Range Interpretation [...] RDW-SD (test code = 46.6 fL 38.5-51.6 22547-3) RDW-CV (test code = 14.6 % 12.1-15.4 788-0) PLT (test code = See_Comment [Automated 777-3) message] The sy stem which generated this result transmitted reference range : 150 - 328 10*3/ ?L. The reference r corey was not used to interpret this result as normal/abnormal . MPV (test code = 9.7 fL 9.8-13 L 98093-6) NRBC/100 WBC (test See_Comment [Automat ed code = 7871437622) message] The system which generated this result transmitted reference range : 0.0 - 10.0 /100 WBCs. The refer ence range was not u sed to interpret th is result as normal/abnormal . NRBC x10^3 (test code <0.01 See_Comment [Auto mated = 0540929700) message] The s ystem which generated this result transmitted reference range : 10*3/?L. The reference range was not used to interpret this result as normal/abnormal . GRAN MAT (NEUT) % 68.6 % (test code = 770-8) IMM GRAN % (test code 0.30 % = 1549829901) LYMPH % (test code = 18.6 % 736-9) MONO % (test code = 10.1 % 5905-5) EOS % (test code = 1.8 % 713-8) BASO % (test code = 0.6 % 706-2) GRAN MAT x10^3(ANC) 4.29 10*3/uL 1.99-6.95 (test code = 4705319307) IMM GRAN x10^3 (test <0.03 0-0.06 code = 1450836459) LYMPH x10^3 (test code 1.16 10*3/uL 1.09-3.23 = 731-0) MONO x10^3 (test code 0.63 10*3/uL 0.36-1.02 = 742-7) EOS x10^3 (test code = 0.11 10*3/uL 0.06-0.53 711-2) BASO x10^3 (test code 0.04 10*3/uL 0.01-0.09 = 704-7) Lab Interpretation Abnormal (test code = 75405-6) [facility] CenterLactic Acid Whole [id number] 22:38:00 Test Item Value Reference Range Interpretation Comments LACTIC ACID (test code = 1.88 mmol/L 0.3-2.6 5344702988) [facility] CenterPOCT GLUCOSE (AUTOMATED)2020-01-17 18:18:00 Test Item Value Reference Range Interpretation Comments POCT GLU (test code = 5478643306) 290 mg/dL 70-110 H Lab Interpretation (test code = Abnormal 99055-4) [facility] CenterTROPONIN [id number] 18:01:00 Test Item Value Reference Range Interpretation Comments TROPONIN I (test 0.065 ng/mL See_Comment H [Automated code = 6968486920) message] The system which generated this result [...] ? Lab Interpretation Abnormal (test code = 28422-4) [facility] CenteraPTT2020-03-03 17:10:00 Test Item Value Reference Range Interpretation [...] seconds. Lab Interpretation Abnormal (test code = 51642-7) [facility] CenterPOSC GLUCOSE (AUTOMATED)2020-01-17 11:59:00 Test Item Value Reference Range Interpretation Comments POCT GLU (test code = 0488893364) 185 mg/dL 70-110 H Lab Interpretation (test code = Abnormal 98119-1) [facility] CenterTROPONIN [id number] 11:23:00 Test Item Value Reference Range Interpretation Comments TROPONIN I (test 0.073 ng/mL See_Comment H [Automated code = 8780768995) message] The system which generated this result [...] ? Lab Interpretation Abnormal (test code = 72001-0) [facility] (NA, K, CL, CO2, GLUCOSE, BUN, CREATININE, CA)2020-01-17 11:16:00 Test Item Value Reference Range Interpretation Comments NA (test code = 136 mmol/L 135-145 0171208030) K (test code = 3.3 mmol/L 3.5-5 L 4442993202) CL (test code = 101 mmol/L 98-108 1799327186) CO2 TOTAL (test code = 26 mmol/L 23-31 8339668182) AGAP (test code = 2-16 0171172257) BUN (test code = 19 mg/dL 7-23 9605839728) GLUCOSE (test code = 227 mg/dL 70-110 H 3391510204) CREATININE (test code = 1.33 mg/dL 0.6-1.25 H 0140215940) CALCIUM (test code = 9.1 mg/dL 8.6-10.6 6547183105) eGFR Calculation mL/min/1.73m2 (Non-) (test code = 4538839852) eGFR Calculation mL/min/1.73m2 () (test code = 8597917304) ALYSSA (test code = ALYSSA) Association of [...] tests). Lab Interpretation Abnormal (test code = 07900-1) [facility] CenteraPTT2020-03-03 11:00:00 Test Item Value Reference Range Interpretation [...] seconds. Lab Interpretation Abnormal (test code = 97459-3) [facility] CenterCBC WITH [id number] 10:43:00 Test Item Value Reference Range Interpretation Comments WBC (test code = See_Comment [Automated message] 6690-2) The system [employer] generated this result transmitted ref erence range: 4.20 - 1 0.70 10*3/?L. The re ference range was not u sed to interpret this result as normal/abnor mal. RBC (test code = See_Comment [Automated message] 789-8) The system [employer] generated this result transmitted ref erence range: [...] RDW-SD (test code 41.5 fL 38.5-51.6 = 38863-2) RDW-CV (test code 12.8 % 12.1-15.4 = 788-0) PLT (test code = See_Comment [Automated message] 967-3) The system [employer] generated this result transmitted ref erence range: 150 - 32 8 10*3/?L. The re ference range was not u sed to interpret this result as normal/abnor mal. MPV (test code = 10.7 fL 9.8-13 29553-4) NRBC/100 WBC (test See_Comment [Automat ed message] code = 4512124742) The syste m which generated this result transmitted ref erence range: 0.0 - 10 .0 /100 WBCs. The refer ence range was not u sed to interpret this result as normal/abnor mal. NRBC x10^3 (test <0.01 See_Comment [Automated message] code = 9215562756) The syste m which generated this result transmitted ref erence range: 10*3/?L. The reference range was not used to interpr et this result as normal/abnormal . GRAN MAT (NEUT) % 56.1 % (test code = 770-8) IMM GRAN % (test 0.30 % code = 8853613779) LYMPH % (test code 29.5 % = 736-9) MONO % (test code 9.9 % = 5905-5) EOS % (test code = 3.3 % 713-8) BASO % (test code 0.9 % = 706-2) GRAN MAT 3.73 10*3/uL 1.99-6.95 x10^3(ANC) (test code = 4448936199) IMM GRAN x10^3 <0.03 0-0.06 (test code = 6878821249) LYMPH x10^3 (test 1.96 10*3/uL 1.09-3.23 code = 731-0) MONO x10^3 (test 0.66 10*3/uL 0.36-1.02 code = 742-7) EOS x10^3 (test 0.22 10*3/uL 0.06-0.53 code = 711-2) BASO x10^3 (test 0.06 10*3/uL 0.01-0.09 code = 704-7) [facility] GLUCOSE (AUTOMATED)2020-01-17 01:49:00 Test Item Value Reference Range Interpretation Comments POCT GLU (test code = 9169314500) 305 mg/dL 70-110 H Lab Interpretation (test code = Abnormal 43142-0) [facility]PO[facility]2020-01-17 00:01:00 Test Item Value Reference Range Interpretation Comments POCT GLU (test code = 8120551085) 271 mg/dL 70-110 H Lab Interpretation (test code = Abnormal 52104-2) [facility] CenteraPTT2020-03-02 22:23:00 Test Item Value Reference Range Interpretation [...] seconds. Lab Interpretation Abnormal (test code = 95297-7) [facility] CenterTROPONIN [id number] 21:22:00 Test Item Value Reference Range Interpretation Comments TROPONIN I (test 0.061 ng/mL See_Comment H [Automated code = 1989995565) message] The system which generated this result [...] ? Lab Interpretation Abnormal (test code = 88501-8) [facility] CenterPOCT [facility]SE [facility]ATED)2020-01-16 17:37:00 Test Item Value Reference Range Interpretation Comments POCT GLU (test code = 0069073746) 271 mg/dL 70-110 H Lab Interpretation (test code = Abnormal 38808-8) [facility] CenteraPTT2020-03-02 12:47:00 Test Item Value Reference Range Interpretation [...] seconds. Lab Interpretation Abnormal (test code = 83398-5) [facility] CenterTROPONIN [id number] 12:35:00 Test Item Value Reference Range Interpretation Comments TROPONIN I (test 0.074 ng/mL See_Comment H [Automated code = 2093379882) message] The system which generated this result [...] ? Lab Interpretation Abnormal (test code = 98893-4) [facility] CenterLIPID PANEL (40245)(TOTAL CHOLESTEROL, TRIGLYCERIDES, HDL)2020-01-16 12:23:00 Test Item Value Reference Range Interpretation Comments CHOL (test code = 95 mg/dL 120-200 L 7675457480) HDL (test code = 44 mg/dL >40 8490779122) HDLC RATIO (test code = See_Comment [Au tomated message] 9960775031) The system [employer] generated this result transmitted ref erence range: <=5.0. T he reference range was not used to int erpret this result as normal/abnormal . TRIG (test code = 89 mg/dL 30-170 1784905576) LDL CHOL (test code = 33 mg/dL See_Comment [Auto mated message] 91527-7) The system [employer] generated this result transmitted ref erence range: <=160. T he reference range was not used to int erpret this result as normal/abnormal . VLDL (test code = 18 mg/dL 5-60 8841190892) Lab Interpretation (test Abnormal code = 85853-6) [facility] CenterGlycosylated Hemoglobin (A1C)2020-01-16 09:03:00 Test Item Value Reference [...] Indicated Lab Interpretation Abnormal (test code = 71824-3) [facility] CenterCritical [id number] 05:48:18Charanjit Heck MD ? ? 01/15/2020 11:48 PMCritical CarePerformed by: Charanjit Heck MDAuthorized by: Charanjit Hcek MD Critical care provider statement: ?Critical care [...] [facility] AmericaProthrombin Time (PT) / [id number] 05:28:00 Test Item Value Reference Range Interpretation [...] tions. Lab Interpretation (test Normal code = 22113-3) [facility] CenteraPTT2020-03-02 05:27:00 Test Item Value Reference Range Interpretation [...] seconds. Lab Interpretation Normal (test code = 29418-2) [facility] CenterTroponin [id number] 05:11:00 Test Item Value Reference Range Interpretation Comments TROPONIN I (test 0.075 ng/mL See_Comment H [Automated code = 8686947258) message] The system which generated this result [...] ? Lab Interpretation Abnormal (test code = 50836-1) [facility] CenterN-TERMINAL [id number] 05:08:00 Test Item Value Reference Range Interpretation Comments NT-proBNP (test code 896 pg/mL See_Comment H [Autom ated = 5280867980) message] The system which generated this result transmitted reference range : <=450. The reference range was not used to interpret this result as normal/abnormal . ALYSSA (test code = LAYSSA) Biotin has been reported to cause a negative bias, interpret results relative to patient's use of biotin. Lab Interpretation Abnormal (test code = 77560-4) [facility] CenterBasi Metabolic Panel (NA, K, CL, CO2, GLUCOSE, BUN, CREATININE, CA)2020-01-16 04:59:00 Test Item Value Reference Range Interpretation Comments NA (test code = 136 mmol/L 135-145 5661937948) K (test code = 4.0 mmol/L 3.5-5 3869038581) CL (test code = 101 mmol/L 98-108 5077733263) CO2 TOTAL (test code = 27 mmol/L 23-31 6322229899) AGAP (test code = 2-16 3842157882) BUN (test code = 17 mg/dL 7-23 0342627646) GLUCOSE (test code = 445 mg/dL 70-110 H 3249218299) CREATININE (test code = 1.29 mg/dL 0.6-1.25 H 5345024051) CALCIUM (test code = 8.8 mg/dL 8.6-10.6 5736999052) eGFR Calculation mL/min/1.73m2 (Non-) (test code = 5963260034) eGFR Calculation mL/min/1.73m2 () (test code = 8680126066) ALYSSA (test code = ALYSSA) Association of [...] tests). Lab Interpretation Abnormal (test code = 46796-5) [facility] CenterHepatic Function Panel (ALB, T.PRO, BILI T, BU/BC, ALT, AST, ALK PHOS)2020-01-16 04:59:00 Test Item Value Reference Range Interpretation Comments TOTAL BILI (test code = 9948267564) 1.3 mg/dL 0.1-1.1 H BILI UNCON (test code = 9685751269) 1.1 mg/dL 0.1-1.1 BILI CONJ (test code = 9479448433) 0.0 mg/dL 0-0.3 T PROTEIN (test code = 7404262978) 6.3 g/dL 6.3-8.2 ALBUMIN (test code = 4223040550) 3.9 g/dL 3.5-5 ALK PHOS (test code = 9095238505) 67 U/L 34-122 ALTv (test code = 1742-6) 15 U/L 5-50 AST(SGOT) (test code = 4769303904) 23 U/L 13-40 Lab Interpretation (test code = Abnormal 73093-0) [facility] 1 [id number] 04:54:13Impression: Moderate cardiomegaly without acute pulmonary process. RL: 460 AFC: [id number] Indication: Chest pain Comparison: None available Findings: Single AP view of the chest. The cardiopericardial silhouette ismoderately enlarged. The lungs are clear bilaterally. The visualized bonythorax is intact. A thoracic neurostimulator device is in place. [facility], Radiant Results Inft User - 01/15/2020 10:55 PM CSTIndication: Chest painComparison: None availableFindings: Single AP view of the chest. The cardiopericardial silhouette ismoderately enlarged. The lungs are clear bilaterally. The visualized bonythorax is intact. A thoracic neurostimulator device is in place.IMPRESSIONImpression:Moderate cardiomegaly without acute pulmonary process.RL: 460AFC: [id number] signed by Esperanza Rosado MD, PhD at 01/15/2020 10:54 PMUnSaint [facility] WITH RAIVUMOQKGYY3517-54-65 04:51:00 Test Item Value Reference Range Interpretation Comments WBC (test code = See_Comment [Automated 0890-2) message] The sy stem which generated this result transmitted reference range : 4.20 - 10.70 10*3/?L. The reference range was not used to interpret this result as normal/abnormal . RBC (test code = See_Comment L [Automated 919-8) message] The sy stem which generated this [...] RDW-SD (test code = 40.7 fL 38.5-51.6 87490-3) RDW-CV (test code = 12.8 % 12.1-15.4 788-0) PLT (test code = See_Comment L [Automated 777-3) message] The sy stem which generated this result transmitted reference range : 150 - 328 10*3/ ?L. The reference r corey was not used to interpret this result as normal/abnormal . MPV (test code = 10.6 fL 9.8-13 08279-8) IPF % (test code = 2.8 % 1.2-10.7 Platelet count [id number]) measured by fluorescence method. NRBC/100 WBC (test See_Comment [Automat ed code = [id number]) message] The system which generated this result transmitted reference range : 0.0 - 10.0 /100 WBCs. The refer ence range was not u sed to interpret th is result as normal/abnormal . NRBC x10^3 (test code <0.01 See_Comment [Auto mated = [id number]) message] The s ystem which generated this result transmitted reference range : 10*3/?L. The reference range was not used to interpret this result as normal/abnormal . GRAN MAT (NEUT) % 56.0 % (test code = 770-8) IMM GRAN % (test code 0.20 % = 1649430365) LYMPH % (test code = 30.5 % 736-9) MONO % (test code = 9.6 % 5905-5) EOS % (test code = 2.8 % 713-8) BASO % (test code = 0.9 % 706-2) GRAN MAT x10^3(ANC) 2.98 10*3/uL 1.99-6.95 (test code = 6616338399) IMM GRAN x10^3 (test <0.03 0-0.06 code = 1247971565) LYMPH x10^3 (test code 1.62 10*3/uL 1.09-3.23 = 731-0) MONO x10^3 (test code 0.51 10*3/uL 0.36-1.02 = 742-7) EOS x10^3 (test code = 0.15 10*3/uL 0.06-0.53 711-2) BASO x10^3 (test code 0.05 10*3/uL 0.01-0.09 = 704-7) Lab Interpretation Abnormal (test code = 60741-6) [facility]"
[2022-04-14] MEDS ORDERED: MORPHINE 4 MG/ML SYR ONE (20:46)
[2022-04-14] MEDS ORDERED: DIAZEPAM 10 MG/2 ML INJ SYRINGE ONE (20:47)
[2022-04-14] MEDS ORDERED: ONDANSETRON 4 MG/2 ML VIAL ONE (20:47)
--- NOTE | 2022-04-14 22:22 | ER ---
Nurse's Notes [facility] Name: Demetrius Sarmiento Age: 81 yrs Sex: Male : 1940 Arrival Date: 04/14/2022 Time: 20:14 Bed 19 Private MD: Diagnosis: Lumbago with sciatica, left side Presentation: 04/14 20:18 Chief complaint: EMS states: Patient report severe unrelieved back pain and EMS report ag7 elevated blood sugar greater than 500. Coronavirus screen: Client denies travel out of the [place] in the last 14 days. At this time, the client does not indicate any symptoms associated with coronavirus-19. Ebola Screen: Patient negative for fever greater than or equal to 101.5 degrees Fahrenheit, and additional compatible Ebola Virus Disease symptoms Patient denies exposure to infectious person. Patient denies travel to an Ebola-affected area in the 21 days before illness onset. Initial Sepsis Screen: Does the patient meet any 2 criteria? No. Patient's initial sepsis screen is negative. Does the patient have a suspected source of infection? No. Patient's initial sepsis screen is negative. Risk Assessment: Do you want to hurt yourself or someone else? Patient reports no desire to harm self or others. Onset of symptoms was April 13, 2022. Care prior to arrival: Medication(s) given: Normal saline infusion, 500 mL, IV initiated. 20 GA, in the right antecubital area. 20:18 Method Of Arrival: EMS: [facility] ag7 20:18 Acuity: LANCE 3 ag7 Historical: - Allergies: 20:22 No Known Allergies; ag7 - PMHx: 20:22 diabetes mellitus; Hypercholesterolemia; Hypertensive disorder; sciatica; DE; ag7 - Immunization history:: Adult Immunizations up to date, Client reports receiving the 2nd dose of the Covid vaccine, Flu vaccine is up to date. - Social history:: Smoking status: Patient/guardian denies using tobacco products. Screenin:30 Abuse screen: Denies threats or abuse. Nutritional screening: No deficits noted. ag7 Tuberculosis screening: No symptoms or risk factors identified. Fall Risk No fall in past 12 months (0 pts). Secondary diagnosis (15 points) impaired mobility, IV access (20 points). Ambulatory Aid- None/Bed Rest/Nurse Assist (0 pts). Gait- Normal/Bed Rest/Wheelchair (0 pts) Mental Status- Oriented to own ability (0 pts). Total Torres Fall Scale indicates Low Risk Score (25-44 pts). Fall prevention measures have been instituted. Side Rails Up X 2 Placed close to Nursing Station Frequent Obs/Assesments occuring As available Patient and Family Educated on Fall Prevention Program and strategies. Assessment: 20:25 General: Appears in no apparent distress. Behavior is anxious. Pain: Complains of pain ag7 in back and left leg Pain radiates to left leg Pain currently is 10 out of 10 on a pain scale. Quality of pain is described as aching, sharp, Pain began suddenly, Is continuous, Alleviated by nothing. Neuro: Level of Consciousness is awake, alert, obeys commands, Oriented to Appropriate for age Geneticist are equal bilaterally. Cardiovascular: Heart tones S1 S2 present Patient's skin is warm and dry. Respiratory: Airway is patent Trachea midline Respiratory effort is even, unlabored, Respiratory pattern is regular, symmetrical, Breath sounds are clear bilaterally. Musculoskeletal: Range of motion: limited in left hip and left knee. 22:15 Reassessment: Patient sitting on rolling chair at doorway of room, states "Take this lp1 thing out of me, I'm ready to go"; Discussed with patient continuing to monitor for treatment, patient demonstrates understanding and declines; Provider notified, states discharge status for patient. 22:20 Reassessment: Patient ambulated to wheelchair for assistance out of ED to lobby; lp1 patient calling for taxi for ride home. Vital Signs: 20:18 BP 108 / 77; Pulse 97; Resp 16 S; Temp 98.9(O); Pulse Ox 100% on R/A; Weight 77.11 kg; ag7 Height 5 ft. 7 in. (170.18 cm) (R); Pain 10/10; 21:30 Pain 3/10; ag7 20:18 Body Mass Index 26.63 (77.11 kg, 170.18 cm) 7 ED Course: 20:14 Patient arrived in ED. lp1 20:18 Fern Wall, HERBIE is Primary Nurse. 7 20:18 Cosmo Cordero PA is PHCP. [facility] 20:18 Brett Lema MD is Attending Physician. [facility] 20:22 Triage completed. ag7 20:30 Maintain EMS IV. Dressing intact. Good blood return noted. Site clean \\T\\ dry. Gauge \\T\\ ag 7 site: 20 G R AC. 20:31 Arm band placed on. ag7 20:31 Patient has correct armband on for positive identification. Bed in low position. Call ag7 light in reach. Side rails up X 1. 22:30 No provider procedures requiring assistance completed. IV discontinued, intact, ag7 bleeding controlled, No redness/swelling at site. Pressure dressing applied. Administered Medications: 20:54 Drug: Zofran (Ondansetron) 4 mg Route: IVP; Site: right antecubital; ag7 21:30 Follow up: Response: No adverse reaction ag7 20:54 Drug: Valium (diazepam) 5 mg Route: IVP; Site: right antecubital; ag7 21:30 Follow up: Response: No adverse reaction ag7 20:55 Drug: morphine 4 mg Route: IVP; Infused Over: 4 mins; Site: right antecubital; ag7 21:30 Follow up: Pain 3/10 Adult; Response: No adverse reaction; Marked relief of symptoms; ag7 Pain is decreased Medication: 20:31 VIS not applicable for this client. ag7 Outcome: 22:21 Discharge ordered by . rohit 22:30 Patient left the ED. lp1 22:30 Discharged to home via wheelchair. ag7 22:30 Condition: stable 22:30 Discharge instructions given to patient, Instructed on discharge instructions, follow up and referral plans. Demonstrated understanding of instructions, follow-up care. Signatures: Cosmo Cordero PA PA jmm Pena, Laura, RN RN lp1 Fern Wall RN RN ag7 Corrections: (The following items were deleted from the chart) 04/15 07:13 04/14 22:15 Reassessment: Patient sitting on rolling chair at doorway of room, states lp1 "Take this thing out of me, I'm ready to go"; Discussed with patient refusing medical treatment, patient demonstrates understanding; Provider notified lp1 04/15 07:14 04/14 22:15 Reassessment: Patient sitting on rolling chair at doorway of room, states lp1 "Take this thing out of me, I'm ready to go"; Discussed with patient refusing medical treatment, patient demonstrates understanding; Provider notified, states discharge status for patient lp1
--- NOTE | 2022-04-14 22:22 | EDPHYS ---
Physician Documentation [facility] Name: Demetrius Sarmiento Age: 81 yrs Sex: Male : 1940 Arrival Date: 04/14/2022 Time: 20:14 Bed 19 Private MD: ED Physician Brett Lema HPI: 04/14 20:20 This 81 yrs old Male presents to ER via EMS with complaints of Back Pain. jmm 20:20 The patient presents with pain that is chronic. Onset: The symptoms/episode jmm began/occurred at an unknown time. The pain radiates to the left leg. Associated signs and symptoms: Pertinent negatives: fever. Modifying factors: The patient symptoms are alleviated by nothing, the patient symptoms are aggravated by any movement. The patient has experienced similar episodes in the past, chronically. Historical: - Allergies: 20:22 No Known Allergies; ag7 - PMHx: 20:22 diabetes mellitus; Hypercholesterolemia; Hypertensive disorder; sciatica; MA; ag7 - Immunization history:: Adult Immunizations up to date, Client reports receiving the 2nd dose of the Covid vaccine, Flu vaccine is up to date. - Social history:: Smoking status: Patient/guardian denies using tobacco products. ROS: 20:20 Constitutional: Negative for fever, chills, and weight loss, Cardiovascular: Negative jm for chest pain, palpitations, and edema, Respiratory: Negative for shortness of breath, cough, wheezing, and pleuritic chest pain. 20:20 Back: Positive for pain with movement. 20:20 All other systems are negative. Exam: 20:20 Constitutional: This is a well developed, well nourished patient who is awake, alert, jmm and in no acute distress. Head/Face: atraumatic. Eyes: EOMI, no conjunctival erythema appreciated ENT: Moist Mucus Membranes Neck: Trachea midline, Supple Chest/axilla: Normal chest wall appearance and motion. Cardiovascular: Regular rate and rhythm. No edema appreciated Respiratory: Normal respirations, no respiratory distress appreciated Abdomen/GI: Non distended, soft 20:20 Back: pain, that is moderate. 20:20 Musculoskeletal/extremity: ROM: intact in all extremities. 20:20 Neuro: Orientation: is normal, Mentation: is normal, Memory: is normal. 20:20 Psych: Behavior/mood is pleasant, cooperative. Vital Signs: 20:18 BP 108 / 77; Pulse 97; Resp 16 S; Temp 98.9(O); Pulse Ox 100% on R/A; Weight 77.11 kg; ag7 Height 5 ft. 7 in. (170.18 cm) (R); Pain 10/10; 21:30 Pain 3/10; ag7 20:18 Body Mass Index 26.63 (77.11 kg, 170.18 cm) ag7 MDM: 20:23 Patient medically screened. [facility] 22:21 Data reviewed: vital signs, nurses notes. Counseling: I had a detailed discussion with [facility] the patient and/or guardian regarding: the historical points, exam findings, and any diagnostic results supporting the discharge/admit diagnosis, radiology results, the need for outpatient follow up, to return to the emergency department if symptoms worsen or persist or if there are any questions or concerns that arise at home. 04/14 20:20 Order name: Saline Lock; Complete Time: 20:[address] [facility] Administered Medications: 20:54 Drug: Zofran (Ondansetron) 4 mg Route: IVP; Site: right antecubital; ag7 21:30 Follow up: Response: No adverse reaction ag7 20:54 Drug: Valium (diazepam) 5 mg Route: IVP; Site: right antecubital; ag7 21:30 Follow up: Response: No adverse reaction 7 20:55 Drug: morphine 4 mg Route: IVP; Infused Over: 4 mins; Site: right antecubital; ag7 21:30 Follow up: Pain 3/10 Adult; Response: No adverse reaction; Marked relief of symptoms; ag7 Pain is decreased Disposition Summary: 04/14/22 22:21 Discharge Ordered Location: Home [facility] Condition: Stable [facility] Diagnosis - Lumbago with sciatica, left side [facility] Followup: [facility] - With: Private Physician - When: 2 - 3 days - Reason: Recheck today's complaints, Continuance of care, Re-evaluation by your physician Discharge Instructions: - Discharge Summary Sheet [facility] - Sciatica [facility] Forms: - Medication Reconciliation Form [facility] - Thank You Letter [facility] - Antibiotic Education [facility] - Prescription Opioid Use [facility] Addendum: 04/16/2022 07:19 Co-signature as Attending Physician, Brett madsen Signatures: Cosmo Cordero PA PA jmm Holmes, Maurice, MD MD mh7 Fern Wall RN RN ag7 Corrections: (The following items were deleted from the chart) 04/14 22:21 22:20 This 81 yrs old Male presents to ER via EMS with complaints of Back Pain. rohit bee
[2022-04-14 22:55] VITALS: BP 108/77; TEMP 98.9; O2SAT 100
== END 2022-04-14 22:30 | disposition home or self-care (01) ==
LOC: ER 20:06
DX: M54.42 Lumbago with sciatica, left side (principal); E11.9 Type 2 diabetes mellitus without complications; I10 Essential (primary) hypertension; I25.2 Old myocardial infarction
CPT/HCPCS: 96375; 96374; 99283; J3360; J2405

== ENCOUNTER 2022-04-15 19:26 | Emergency (ER) | payer OTHER ==
--- OUTSIDE RECORDS SUMMARY | 2022-04-15 19:39 | XMS REPORT | Continuity of Care Document ---
:1940 Author Organization [facility] t Address [address] [place] [address] Care Team Providers Name Role Phone Andres [...] Number Effective Date Expiration Date Stacy torres 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 00:00: [place] disease disease 00 Medical Branch Coronary Coronary Disease Active Unive rs artery artery 1-27 ity of disease disease 00:00: [place] involving involving 00 Medi birdie [place] coronary 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[place] 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 [...] U [facility] Allergie 1-23 Clear s 00:00: [address] NO KNOWN Drug Active Univers ALLERGIE Class ity of S [facility] Social History Social Habit Start Date Stop Date Quantity Comments Source Exposure to Unable to assess Univers ity of SARS-CoV-2 (event) [facility] History of tobacco User of Univer sity of use smokeless [facility] tobacco [place] Alcohol intake 2022-03-01 2022-03-01 Current University of 00:00:00 00:00:00 non-drinker of [facility] alcohol [place] (finding) Cigarettes smoked 2018-12-11 2018-12-11 Univers ity of current (pack per 00:00:00 00:00:00 [facility] ) - Reported Branch Cigarette 2018-12-11 2018-12-11 University of pack-years 00:00:00 00:00:00 [facility] Tobacco use and 2018-12-11 2018-12-11 Former user Universi ty of exposure 00:00:00 00:00:00 [facility] Sex Assigned At [birth year] Universit y of 00:00:00 00:00:00 [facility] Smoking Status Start Date Stop Date Source Former smoker 2018-12-11 00:00:00 2018-12-11 00:00:00 Universi ty of [facility] Medications Ordered Filled Start Stop Current Ordering Indication Dosage Frequency Signature Comments Components Source Medication Medication Date Date Medication? Clinician (SIG) Name Name FENTanyl PF No 25ug 25 mcg, Un mel (SUBLIMAZE 03-01 Intramuscu it y of (PF)) 16:45: 16:23 lar, ONCE, [place] injection 00 :00 1 dose, On Medi birdie 25 mcg [facility] 03/01/22 at 1145, Routine cyclobenzap No 10mg 10 mg, Uni vers rine 03-01 Oral, ity of (FLEXERIL) 14:00: 12:59 ONCE, 1 [place] tablet 10 00 :00 dose, On Medica l mg [facility] 03/01/22 at 0900, Routine HYDROcodone 2021- [...] 03/01/22 at 0900, 1 mL cyclobenzap Yes [id number] 10mg Take 1 Univers rine 10 mg 16 tablet by ity of tablet 00:00: mouth 3 [place] 00 (three) Medical times [place] daily as needed for Muscle Spasms. aspirin 81 2020-11- No [id number] 81mg Take 1 Univers mg chewable 2-12-04 tablet by it y of tablet 00:00: 05:59 mouth [place] 00 :00 daily for Medical 30 days. [place] clopidogreL 2020-11- No [id number] 75mg Take 1 Univers 75 mg 2-04 12- tablet by ity of tablet 00:00: 05:59 mouth [place] 00 :00 daily for Medical 30 days. [place] furosemide 2020-11- No [id number] 20mg Take 1 Univers 20 mg 2-04 12- tablet by ity of tablet 00:00: 05:59 mouth [place] 00 :00 daily for Medical 30 days. [place] aspirin 81 2020-11- No [id number] 81mg Take 1 Univers mg chewable 2-12-04 tablet by it y of tablet 00:00: 05:59 mouth [place] 00 :00 daily for Medical 30 days. [place] clopidogreL 2020-11- No [id number] 75mg Take 1 Univers 75 mg 2-04 12- tablet by ity of tablet 00:00: 05:59 mouth [place] 00 :00 daily for Medical 30 days. [place] furosemide 2020-11- No [id number] 20mg Take 1 Univers 20 mg 2-04 12- tablet by ity of tablet 00:00: 05:59 mouth [place] 00 :00 daily for Medical 30 days. [place] aspirin 81 2020-11- No [id number] 81mg Take 1 Univers mg chewable 2-04 12- tablet by it y of tablet 00:00: 05:59 mouth [place] 00 :00 daily for Medical 30 days. Branch clopidogreL 2020-11- No [id number] 75mg Take 1 Univers 75 mg 01-04- tablet by ity of tablet 00:00: 05:59 mouth [place] 00 :00 daily for Medical 30 days. Branch furosemide 2020-11- No [id number] 20mg Take 1 Univers 20 mg -04 [...] Until Discontinu ed, Routine QUEtiapine 2020-11 Yes [id number] 25mg Take 1 Univers 25 mg 2-18 tablet by ity of tablet 00:00: mouth at [place] 00 bedtime as Medical needed Branch (agitation /insomnia) . QUEtiapine 2020-11 Yes [id number] 25mg Take 1 Univers 25 mg 2-18 tablet by ity of tablet 00:00: mouth at [place] 00 bedtime as Medical needed Branch (agitation /insomnia) . QUEtiapine 2020-11 Yes [id number] 25mg Take 1 Univers 25 mg 2-18 tablet by ity of tablet 00:00: mouth at [place] 00 bedtime as Medical needed Branch (agitation /insomnia) . QUEtiapine 2020-11 Yes [id number] 25mg Take 1 Univers 25 mg 2-18 tablet by ity of tablet 00:00: mouth at [place] 00 bedtime as Medical needed Branch (agitation /insomnia) . isosorbide 2020-11 No [id number] 60mg Take 1 Univers mononitrate 2-18 01-18 tablet by it y of 60 mg 24 hr 00:00: 05:59 mouth 2 [place] tablet 00 :00 (two) Medical times Branch daily for 30 days. metoprolol 2020-11- No [id number] 37.5mg Take 1.5 Univers succinate 2-18 -18 tablets by ity of XL 25 mg 24 00:00: 05:59 mouth 2 [place] hr tablet 00 :00 (two) Medical times Branch daily for 30 days. isosorbide 2020-11- No [id number] 60mg Take 1 Univers mononitrate 2-18 -18 tablet by it y of 60 mg 24 hr 00:00: 05:59 mouth 2 [place] tablet 00 :00 (two) Medical times Branch daily for 30 days. metoprolol 2020-11- No [id number] 37.5mg Take 1.5 Univers succinate 2-18 -18 tablets by ity of XL 25 mg 24 00:00: 05:59 mouth 2 [place] hr tablet 00 :00 (two) Medical times Branch daily for 30 days. isosorbide 2020-11- No [id number] 60mg Take 1 Univers mononitrate 2-18 -18 tablet by it y of 60 mg 24 hr 00:00: 05:59 mouth 2 [place] tablet 00 :00 (two) Medical times Branch daily for 30 days. metoprolol 2020-11- No [id number] 37.5mg Take 1.5 Univers succinate 2-18 -18 [...] QHSPRN, [place] mg [address] [facility] Branch 11/01/21 at 0322, Until Discontinu [...] Until Discontinu ed, Routine sulfur 2020-11- No [id number] 5mL 5 mL, Unive rs hexafluorid -10-31 Intravenou i ty of e microsphr 17:00: 17:00 s, ONCE, 1 [place] (LUMASON) 00 :00 dose, On Medica l injection 5 [place] Branch mL 10/31/21 at 1100, Routine
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 Restricted medication : MEGGAN CAMARA isosorbide 2020-11- No 120mg 120 mg, Un mel mononitrate 2-31 10- Oral, ity of (IMDUR) 24 15:00: 14:16 DAILY, [place] hr tablet 00 :38 First dose Medi birdie 120 mg on [facility] Branch 10/31/21 at 0900, Until Discontinu ed, Routine Sliding 2020-11 Yes Subcutaneo Univ ers Scale 2-16 us, AC+HS, ity of Insulin-Reg 13:30: First dose [place] ular + Fsbg 00 on [facility] Medica l Testing 10/31/21 Branch at 0730, Until Discontinu ed, Routine enoxaparin 2020-11- No 1mg/kg 80 mg Uni vers (LOVENOX) 01-0118 (rounded ity o f injection 09:00: 14:17 from 78 mg [place] 80 mg 00 :35 = 1 mg/kg Medical ?78 kg), Branch [facility], Q24H, First dose on [place] 10/31/21 at 0300, Until Discontinu ed, Routine aspirin 2020-11- No 325mg 325 mg, Unive rs tablet 325 01-01 Oral, ity of mg 08:45: 08:15 ONCE, 1 [place] 00 :00 dose, On Medical [facility] Branch 10/31/21 at 0245, Routine glucagon 2020-11 [...] at Branch 1400, [place]AMA cyclobenzap 0 Yes [id number] 5mg Take 1 Univers rine 5 mg 6-10 tablet by ity o f tablet 00:00: mouth 3 [place] 00 (three) Medical times Branch daily. cyclobenzap 0 Yes [id number] 5mg Take 1 Univers rine 5 mg 6-10 tablet by ity o f tablet 00:00: mouth 3 [place] 00 (three) Medical times Branch daily. cyclobenzap Yes [id number] 5mg Take 1 Univers rine 5 mg [...] left sided low back pain cyclobenzap Yes [id number] 5mg Take 1 Univers rine 5 mg [...] left sided low back pain cyclobenzap Yes [id number] 5mg Take 1 Univers rine 5 mg 6-10 tablet by ity o f tablet 00:00: mouth 3 00 (three) Medical times Branch daily. cyclobenzap 2021- No [id number] 5mg Take 1 Univers rine 5 mg [...] [place] mg 00 First dose Medical on [facility] Branch 03/24/20 at 0900, Until [...] [place] mg 00 First dose Medical on [facility] Branch 03/24/20 at 0900, Until [...] Discontinu ed, Routine aspirin 81 2020-0 Yes [id number] 81mg Take 1 U nivers mg chewable 5-09 tablet by ity of tablet 00:00: mouth [place] 00 daily with Medical breakfast. [place] furosemide 2020-0 Yes [id number] 20mg Take 1 U nivers 20 mg 5-09 tablet by ity of tablet 00:00: mouth [place] [address] [facility] aspirin 81 2020-0 Yes [id number] 81mg Take 1 U nivers mg chewable 5-09 tablet by ity of tablet 00:00: mouth [place] 00 daily with Medical breakfast. [place] furosemide 2020-0 Yes [id number] 20mg Take 1 U nivers 20 mg 5-09 tablet by ity of tablet 00:00: mouth [place] [address] [facility] aspirin 81 2020-0 Yes [id number] 81mg Take 1 U nivers mg chewable 5-09 tablet by ity of tablet 00:00: mouth [place] 00 daily with Medical breakfast. [place] furosemide 2020-0 Yes [id number] 20mg Take 1 U nivers 20 mg 5-09 tablet by ity of tablet 00:00: mouth [place] [address] [facility] aspirin 81 2020-0 Yes [id number] 81mg Take 1 U nivers mg chewable 5-09 tablet by ity of tablet 00:00: mouth [place] 00 daily with Medical breakfast. [place] furosemide 2020-0 Yes [id number] 20mg Take 1 U nivers 20 mg 5-09 tablet by ity of tablet 00:00: mouth [place] [address] [facility] aspirin 81 2020-0 Yes [id number] 81mg Take 1 U nivers mg chewable 5-09 tablet by ity of tablet 00:00: mouth [place] 00 daily with Medical breakfast. [place] furosemide 2020-0 Yes [id number] 20mg Take 1 U nivers 20 mg 5-09 tablet by ity of tablet 00:00: mouth [place] [address] [facility] aspirin 81 2020-0 Yes [id number] 81mg Take 1 U nivers mg chewable 5-09 tablet by ity of tablet 00:00: mouth [place] 00 daily with Medical breakfast. [place] furosemide 2020-0 Yes [id number] 20mg Take 1 U nivers 20 mg 5-09 tablet by ity of tablet 00:00: mouth [place] 00 daily. Medical Branch aspirin 81 2020-0 Yes [id number] 81mg Take 1 U nivers mg chewable 5-09 tablet by ity of tablet 00:00: mouth [place] 00 daily with Medical breakfast. Branch furosemide 2020-0 Yes [id number] 20mg Take 1 U nivers 20 mg 5-09 tablet by ity of tablet 00:00: mouth [place] 00 daily. Medical Branch aspirin 81 2020-0 Yes [id number] 81mg Take 1 U nivers mg chewable 5-09 tablet by ity of tablet 00:00: mouth [place] 00 daily with Medical breakfast. Branch furosemide 2020-0 Yes [id number] 20mg Take 1 U nivers 20 mg 5-09 tablet by ity of tablet 00:00: mouth [place] 00 daily. Medical Branch aspirin 81 2020-0 Yes [id number] 81mg Take 1 U nivers mg chewable 5-09 tablet by ity of tablet 00:00: mouth [place] 00 daily with Medical breakfast. Branch furosemide 2020-0 Yes [id number] 20mg Take 1 U nivers 20 mg 5-09 tablet by ity of tablet 00:00: mouth [place] 00 daily. Medical Branch aspirin 81 2020-0 202- No [id number] 81mg Take 1 Univers mg chewable 5-09 12-18 tablet by it y of tablet 00:00: 00:00 mouth [place] 00 :00 daily with Medical breakfast. Branch furosemide 2020-0 2021- No [id number] 20mg Take 1 Univers 20 mg 5-09 12-18 tablet by ity of tablet 00:00: 00:00 mouth [place] 00 :00 daily. Medical Branch isosorbide 2020-0 2020- No [id number] 90mg Take 3 Univers mononitrate 5-09 05-08 tablets by i ty of 30 mg 24 hr 00:00: 00:00 mouth [place] tablet 00 :00 daily. Medical Branch isosorbide 2020-0 2020- No [id number] 90mg Take 3 Univers mononitrate 5-09 05-08 tablets by i ty of 30 mg 24 hr 00:00: 00:00 mouth [place] tablet 00 :00 daily. Medical Branch maalox/lido 2020-0 2020- No 5mL 5 mL, Univ ers sydni 2 5-08 05-08 Oral, ity of %viscous 20:45: 20:56 ONCE, 1 [place] 1:1 00 :00 dose, Fri Medical suspension 03/23/20 at [facility] (COMPOUNDED 1545, ) Routine maalox/lido 2020-0 2020- No 5mL 5 mL, Univ [facility] 2 03-23 Oral, ity of %viscous 20:45: 20:56 ONCE, 1 [place] 1:1 00 :00 dose, Fri Medical suspension 03/23/20 at [facility] (COMPOUNDED 1545, ) Routine acetaminoph 2020-0 [...] :00 dose, Fri Medical (DEFINITY) 03/23/20 at [facility] injection 2 1030, mL Routine perflutren [...] Fri Medi birdie (4 %) 03/23/20 at [place] infusion 2 0245, g Routine KCL 2020-0 2020- No 40meq 40 mEq, Univers (KLOR-CON 03-23 Oral, ity of M20) tablet 07:45: 07:27 ONCE, 1 [place] 40 mEq 00 :00 dose, Fri Medical 03/23/20 at [place] 0245, Routine magnesium 2020-0 2020- No 2g 2 g, IV Univ ers sulfate in 03-23 Piggyback, it y of water 2 07:45: 07:49 ONCE, 1 [place] gram/50 mL 00 :00 dose, Fri Medi birdie (4 %) 03/23/20 at [place] infusion 2 0245, g Routine KCL 2020-0 2020- No 40meq 40 mEq, Univers (KLOR-CON 03-23 Oral, ity of M20) tablet 07:45: 07:27 ONCE, 1 [place] 40 mEq 00 :00 dose, Fri Medical 03/23/20 at [place] 0245, Routine heparin 2020-0 Yes 12U/kg/ 12 [...] 1 [place] mg 00 :00 dose, [facility] 03/22/20 at Branch 2145, [place] aspirin 2020-0 2020- No 324mg 324 mg, Unive rs chewable 03-23-08 Oral, ity of tablet 324 02:37: 02:51 ONCE, 1 [place] mg 00 :00 dose, [facility] 03/22/20 at Branch 2145, [place] isosorbide 2020-0 Yes [id number] 90mg Take 1.5 Univers mononitrate 5-08 tablets by it y of 60 mg 24 hr 00:00: mouth [place] tablet [address] [facility] isosorbide 2020-0 Yes [id number] 90mg Take 1.5 Univers mononitrate 5-08 tablets by it y of 60 mg 24 hr 00:00: mouth [place] tablet [address] [facility] isosorbide 2020-0 Yes [id number] 90mg Take 1.5 Univers mononitrate 5-08 tablets by it y of 60 mg 24 hr 00:00: mouth [place] tablet [address] [facility] isosorbide 2020-0 Yes [id number] 90mg Take 1.5 Univers mononitrate 5-08 tablets by it y of 60 mg 24 hr 00:00: mouth [place] tablet [address] [facility] isosorbide 2020-0 Yes [id number] 90mg Take 1.5 Univers mononitrate 5-08 tablets by it y of 60 mg 24 hr 00:00: mouth [place] tablet 00 daily. Medical Branch isosorbide 2020-0 Yes [id number] 90mg Take 1.5 Univers mononitrate 5-08 tablets by it y of 60 mg 24 hr 00:00: mouth [place] tablet 00 daily. Medical Branch isosorbide 2020-0 Yes [id number] 90mg Take 1.5 Univers mononitrate 5-08 tablets by it y of 60 mg 24 hr 00:00: mouth [place] tablet 00 daily. Medical Branch isosorbide 2020-0 Yes [id number] 90mg Take 1.5 Univers mononitrate 5-08 tablets by it y of 60 mg 24 hr 00:00: mouth [place] tablet 00 daily. Medical Branch isosorbide 2020-0 Yes [id number] 90mg Take 1.5 Univers mononitrate 5-08 tablets by it y of 60 mg 24 hr 00:00: mouth [place] tablet 00 daily. Medical Branch isosorbide 2020-0 2021- No [id number] 90mg Take 1.5 Univers mononitrate 5-08 12-18 tablets by i ty of 60 mg 24 hr 00:00: 00:00 mouth [place] tablet 00 :00 daily. Medical Branch acetaminoph 2020-0 2020- No [id number] 975mg Take 3 Univers en 325 mg 5-08 05-19 tablets by ity of tablet 00:00: 04:59 mouth [place] 00 :00 every 8 Medical (eight) Branch hours for 10 days. acetaminoph 2020-0 2020- No [id number] 975mg Take 3 Univers en 325 mg 5-08 05-19 tablets by ity of tablet 00:00: 04:59 mouth [place] 00 :00 every 8 Medical (eight) Branch hours for 10 days. acetaminoph 2020-0 2020- No [id number] 975mg Take 3 Univers en 325 mg 5-08 05-19 tablets by ity of tablet 00:00: 04:59 mouth [place] 00 :00 every 8 Medical (eight) Branch hours for 10 days. acetaminoph 2020-0 2020- No [id number] 975mg Take 3 Univers en 325 mg 5-08 05-19 tablets by ity of tablet 00:00: 04:59 mouth [place] 00 :00 every 8 Medical (eight) Branch hours for 10 days. acetaminoph 2020-0 2020- No [id number] 975mg Take 3 Univers en 325 mg 5-08 05-19 tablets by ity of tablet 00:00: 04:59 mouth [place] 00 :00 every 8 Medical (eight) Branch hours for 10 days. lidocaine 5 2019-2019- No [id number] 1{patch Apply 1 Univers % (700 508 05-09 } Patch to ity of mg/patch) 00:00: 04:59 area(s) [place] patch 00 :00 once now Medical for 1 Branch dose. lidocaine 5 2019- No [id number] 1{patch Apply 1 Univers % (700 5 05-09 } Patch to ity of mg/patch) 00:00: 04:59 area(s) [place] patch 00 :00 once now Medical for 1 Branch dose. lidocaine 5 2019- No [id number] 1{patch Apply 1 Univers % (700 5 05-08 } Patch to ity of mg/patch) 00:00: 00:00 area(s) [place] patch 00 :00 once now Medical for 1 Branch dose. lidocaine 5 2019- No [id number] 1{patch Apply 1 Univers % (700 03-23 05-08 } Patch to ity of mg/patch) 00:00: 00:00 area(s) [place] patch 00 :00 once now Medical for 1 Branch dose. glipiZIDE 2020-0 Yes 5mg 5 mg, Univers (GLUCOTROL) 4-23 Oral, ity of tablet 5 mg 14:00: DAILY, [place] 00 First dose Medical on [facility] 03/08/20 at 0900, Until Discontinu ed, Routine spironolact 2019- 2020- No [id number] 12.5mg Take 0.5 Univers one 25 mg 4-23 05-24 tablets by ity of tablet 00:00: 04:59 mouth [place] 00 :00 daily for Medical 30 days. Branch spironolact 2020-0 2020- No [id number] 12.5mg Take 0.5 Univers one 25 mg 4-23 05-24 tablets by ity of tablet 00:00: 04:59 mouth [place] 00 :00 daily for Medical 30 days. Branch spironolact 2020- 2020- No [id number] 12.5mg Take 0.5 Univers one 25 mg 4-23 05-24 tablets by ity of tablet 00:00: 04:59 mouth [place] 00 :00 daily for Medical 30 days. Branch spironolact 2020-0 2020- No [id number] 12.5mg Take 0.5 Univers one 25 mg 4-23 05-07 tablets by ity of tablet 00:00: 00:00 mouth [place] 00 :00 daily for Medical 30 days. Branch spironolact 2020-0 2020- No [id number] 12.5mg Take 0.5 Univers one 25 mg [...] Discontinu ed, Routine, Insomnia Insulin 2020-0 Yes [id number] 10U inject 10 Univers Glargine 4-22 Units ity of 100 unit/mL 00:00: under the [place] (3 mL) 00 skin at Medical injection bedtime. Branch temazepam 2019-0 Yes [id number] 15mg Take 1 Un mel 15 mg 4-22 capsule by ity of capsule 00:00: mouth at [place] 00 bedtime as Medical needed for Branch Insomnia. furosemide 2020-0 Yes [id number] 40mg Take 1 Univers 40 mg 4-22 tablet by ity of tablet 00:00: mouth [place] 00 every Medical morning Branch and evening. Magnesium 2020-0 Yes [id number] 400mg Take 400 Univers Oxide 420 4-22 mg by ity of mg Tab 00:00: mouth [place] 00 daily. Medical Branch potassium 2020-0 Yes [id number] 20meq Take 20 Univers chloride 20 4-22 mEq by ity of mEq packet 00:00: mouth [place] 00 daily. Medical Take with Branch lasix in the morning isosorbide 2020-0 Yes [id number] 15mg Take 0.5 Univers mononitrate 4-22 tablets by it y of 30 mg 24 hr 00:00: mouth [place] tablet 00 daily. Medical Hold if Branch systolic blood pressure less than 120 Insulin 2020-0 Yes [id number] 10U inject 10 Univers Glargine 4-22 Units ity of 100 unit/mL 00:00: under the [place] (3 mL) 00 skin at Medical injection bedtime. Branch temazepam 2020-0 Yes [id number] 15mg Take 1 Un mel 15 mg 4-22 capsule by ity of capsule 00:00: mouth at [place] 00 bedtime as Medical needed for Branch Insomnia. furosemide 2020-0 Yes [id number] 40mg Take 1 Univers 40 mg 4-22 tablet by ity of tablet 00:00: mouth [place] 00 every Medical morning Branch and evening. Magnesium 2020-0 Yes [id number] 400mg Take 400 Univers Oxide 420 4-22 mg by ity of mg Tab 00:00: mouth [place] 00 daily. Medical Branch potassium 2020-0 Yes [id number] 20meq Take 20 Univers chloride 20 4-22 mEq by ity of mEq packet 00:00: mouth [place] 00 daily. Medical Take with Branch lasix in the morning isosorbide 2020-0 Yes [id number] 15mg Take 0.5 Univers mononitrate 4-22 tablets by it y of 30 mg 24 hr 00:00: mouth [place] tablet 00 daily. Medical Hold if Branch systolic blood pressure less than 120 Insulin 2020-0 Yes [id number] 10U inject 10 Univers Glargine 4-22 Units ity of 100 unit/mL 00:00: under the [place] (3 mL) 00 skin at Medical injection bedtime. Branch temazepam 2020-0 Yes [id number] 15mg Take 1 Un mel 15 mg 4-22 capsule by ity of capsule 00:00: mouth at [place] 00 bedtime as Medical needed for Branch Insomnia. furosemide 2020-0 Yes [id number] 40mg Take 1 Univers 40 mg 4-22 tablet by ity of tablet 00:00: mouth [place] 00 every Medical morning Branch and evening. Magnesium 2020-0 Yes [id number] 400mg Take 400 Univers Oxide 420 4-22 mg by ity of mg Tab 00:00: mouth [place] 00 daily. Medical Branch potassium 2020-0 Yes [id number] 20meq Take 20 Univers chloride 20 4-22 mEq by ity of mEq packet 00:00: mouth [place] 00 daily. Medical Take with Branch lasix in the morning isosorbide 2020-0 Yes [id number] 15mg Take 0.5 Univers mononitrate 4-22 tablets by it y of 30 mg 24 hr 00:00: mouth [place] tablet 00 daily. Medical Hold if Branch systolic blood pressure less than 120 Insulin 2020-0 Yes [id number] 10U inject 10 Univers Glargine 4-22 Units ity of 100 unit/mL 00:00: under the [place] (3 mL) 00 skin at Medical injection bedtime. Branch Magnesium 2020-0 Yes [id number] 400mg Take 400 Univers Oxide 420 4-22 mg by ity of mg Tab 00:00: mouth [place] 00 daily. Medical Branch vitamin 2019-0 2020- No [id number] 1000ug Take 1 Univers B-12 1,000 4-22 07-22 tablet by ity of mcg tablet 00:00: 04:59 mouth [place] 00 :00 daily for Medical 90 days. Branch vitamin 2019-0 2020- No [id number] 1000ug Take 1 Univers B-12 1,000 4-22 07-22 tablet by ity of mcg tablet 00:00: 04:59 mouth [place] 00 :00 daily for Medical 90 days. Branch vitamin 2019-0 2020- No [id number] 1000ug Take 1 Univers B-12 1,000 4-22 07-22 tablet by ity of mcg tablet 00:00: 04:59 mouth [place] 00 :00 daily for Medical 90 days. Branch vitamin 2019-0 2020- No [id number] 1000ug Take 1 Univers B-12 1,000 4-22 07-22 tablet by ity of mcg tablet 00:00: 04:59 mouth [place] 00 :00 daily for Medical 90 days. Branch glipiZIDE 5 2019- 2020- No [id number] 2.5mg Take 0.5 Univers mg tablet 03-07-23 tablets by ity of 00:00: 04:59 mouth 2 [place] 00 :00 (two) Medical times Branch daily before breakfast and dinner for 30 days. metoprolol 2019-0 2020- No [id number] 25mg Take 1 Univers succinate 03-07-23 tablet by ity of XL 25 mg 24 00:00: 04:59 mouth 2 [place] hr tablet 00 :00 (two) Medical times Branch daily for 30 days. OLANZapine 2019-0 2020- No [id number] 2.5mg Take 1 Univers 2.5 mg -06 04-23 tablet by ity of tablet 00:00: 04:59 mouth at [place] 00 :00 bedtime Medical for 30 Branch days. ranolazine 2019-0 2020- No [id number] 1000mg Take 2 Univers 500 mg 12 - 05-23 tablets by ity of hr tablet 00:00: 04:59 mouth [place] 00 :00 every 12 Medical (twelve) Branch hours for 30 days. aspirin 81 2019-0 2020- No [id number] 81mg Take 1 Univers mg chewable 4-22 05-23 tablet by it y of tablet 00:00: 04:59 mouth [place] 00 :00 daily with Medical breakfast Branch for 30 days. atorvastati 2019- 2020- No [id number] 40mg Take 1 Univers n 40 mg 4-22 05-23 tablet by ity of tablet 00:00: 04:59 mouth at [place] 00 :00 bedtime Medical for 30 Branch days. glipiZIDE 5 2020- No [id number] 2.5mg Take 0.5 Univers mg tablet 4- 05-23 tablets by ity of 00:00: 04:59 mouth 2 [place] 00 :00 (two) Medical times Branch daily before breakfast and dinner for 30 days. metoprolol 2019- 2020- No [id number] 25mg Take 1 Univers succinate 4-22 05-23 tablet by ity of XL 25 mg 24 00:00: 04:59 mouth 2 [place] hr tablet 00 :00 (two) Medical times Branch daily for 30 days. OLANZapine 2019- 2020- No [id number] 2.5mg Take 1 Univers 2.5 mg 4-22 05-23 tablet by ity of tablet 00:00: 04:59 mouth at [place] 00 :00 bedtime Medical for 30 Branch days. ranolazine 2019-0 2020- No [id number] 1000mg Take 2 Univers 500 mg 12 4-22 05-23 tablets by ity of hr tablet 00:00: 04:59 mouth [place] 00 :00 every 12 Medical (twelve) Branch hours for 30 days. aspirin 81 2019-0 2020- No [id number] 81mg Take 1 Univers mg chewable 4-22 05-23 tablet by it y of tablet 00:00: 04:59 mouth [place] 00 :00 daily with Medical breakfast Branch for 30 days. atorvastati 2019-0 2020- No [id number] 40mg Take 1 Univers n 40 mg 4-22 05-23 tablet by ity of tablet 00:00: 04:59 mouth at [place] 00 :00 bedtime Medical for 30 Branch days. glipiZIDE 5 2019- 2020- No [id number] 2.5mg Take 0.5 [facility] mg tablet 4-22 05-23 tablets by ity of 00:00: 04:59 mouth 2 [place] 00 :00 (two) Medical times Branch daily before breakfast and dinner for 30 days. metoprolol 2020-0 2020- No [id number] 25mg Take 1 [facility] succinate 4-22 05-23 tablet by ity of XL 25 mg 24 00:00: 04:59 mouth 2 [place] hr tablet 00 :00 (two) Medical times Branch daily for 30 days. OLANZapine 2019- 2020- No [id number] 2.5mg Take 1 [facility] 2.5 mg 4-22 05-23 tablet by ity of tablet 00:00: 04:59 mouth at [place] 00 :00 bedtime Medical for 30 Branch days. ranolazine 2019- 2020- No [id number] 1000mg Take 2 [facility] 500 mg 12 4-22 05-23 tablets by ity of hr tablet 00:00: 04:59 mouth [place] 00 :00 every 12 Medical (twelve) Branch hours for 30 days. aspirin 81 2019- 2020- No [id number] 81mg Take 1 [facility] mg chewable 4-22 05-23 tablet by it y of tablet 00:00: 04:59 mouth [place] 00 :00 daily with Medical breakfast Branch for 30 days. atorvastati 2019-0 2020- No [id number] 40mg Take 1 [facility] n 40 mg 4-22 05-23 tablet by ity of tablet 00:00: 04:59 mouth at [place] 00 :00 bedtime Medical for 30 Branch days. glipiZIDE 5 2019- 2020- No [id number] 2.5mg Take 0.5 [facility] mg tablet - 05-23 tablets by ity of 00:00: 04:59 mouth 2 [place] 00 :00 (two) Medical times Branch daily before breakfast and dinner for 30 days. metoprolol 2019- 2020- No [id number] 25mg Take 1 [facility] succinate 4-22 05-23 tablet by ity of XL 25 mg 24 00:00: 04:59 mouth 2 [place] hr tablet 00 :00 (two) Medical times Branch daily for 30 days. ranolazine 2020-0 2020- No [id number] 1000mg Take 2 [facility] 500 mg 12 4-22 05-23 tablets by ity of hr tablet 00:00: 04:59 mouth [place] 00 :00 every 12 Medical (twelve) Branch hours for 30 days. atorvastati 2020-0 2020- No [id number] 40mg Take 1 [facility] n 40 mg 4-22 05-23 tablet by ity of tablet 00:00: 04:59 mouth at [place] 00 :00 bedtime Medical for 30 Branch days. furosemide 2019- 2020- No [id number] 40mg Take 1 [facility] 40 mg - 05-08 tablet by ity of tablet 00:00: 00:00 mouth [place] 00 :00 every Medical morning Branch and evening. aspirin 81 2020- No [id number] 81mg Take 1 [facility] mg chewable - 05-08 tablet by it y of tablet 00:00: 00:00 mouth [place] 00 :00 daily with Medical breakfast Branch for 30 days. isosorbide 2020- No [id number] 15mg Take 0.5 [facility] mononitrate -06 04-08 tablets by i ty of 30 mg 24 hr 00:00: 00:00 mouth [place] tablet 00 :00 daily. Medical Hold if Branch systolic blood pressure less than 120 Insulin 2019- 2020- No [id number] 10U inject 10 [facility] Glargine 03-07-08 Units ity of 100 unit/mL 00:00: 00:00 under the [place] (3 mL) 00 :00 skin at Medical injection bedtime. Branch glipiZIDE 5 2020- No [id number] 2.5mg Take 0.5 [facility] mg tablet 03-07-08 tablets by ity of 00:00: 00:00 mouth 2 [place] 00 :00 (two) Medical times Branch daily before breakfast and dinner for 30 days. metoprolol 2019- 2020- No [id number] 25mg Take 1 [facility] succinate - 05-08 tablet by ity of XL 25 mg 24 00:00: 00:00 mouth 2 [place] hr tablet 00 :00 (two) Medical times Branch daily for 30 days. ranolazine 2020- No [id number] 1000mg Take 2 [facility] 500 mg 12 - 05-08 tablets by ity of hr tablet 00:00: 00:00 mouth [place] 00 :00 every 12 Medical (twelve) Branch hours for 30 days. furosemide 2019- 2020- No [id number] 40mg Take 1 [facility] 40 mg - 05-08 tablet by ity of tablet 00:00: 00:00 mouth [place] 00 :00 every Medical morning Branch and evening. aspirin 81 2020- No [id number] 81mg Take 1 [facility] mg chewable - 05-08 tablet by it y of tablet 00:00: 00:00 mouth [place] 00 :00 daily with Medical breakfast Branch for 30 days. atorvastati 2019- No [id number] 40mg Take 1 [facility] n 40 mg - 05-08 tablet by ity of tablet 00:00: 00:00 mouth at [place] 00 :00 bedtime Medical for 30 Branch days. Magnesium 2019- No [id number] 400mg Take 400 [facility] Oxide 420 - 05-08 mg by ity of mg Tab 00:00: 00:00 mouth [place] 00 :00 daily. Medical Branch vitamin 2019-2019- No [id number] 1000ug Take 1 [facility] B-12 1,000 - 05-08 tablet by ity of mcg tablet 00:00: 00:00 mouth [place] 00 :00 daily for Medical 90 days. Branch isosorbide 2019- No [id number] 15mg Take 0.5 [facility] mononitrate 03-07-08 tablets by i ty of 30 mg 24 hr 00:00: 00:00 mouth [place] tablet 00 :00 daily. Medical Hold if Branch systolic blood pressure less than 120 OLANZapine 2019- No [id number] 2.5mg Take 1 [facility] 2.5 mg 03-07 05-07 tablet by ity of tablet 00:00: 00:00 mouth at [place] 00 :00 bedtime Medical for 30 Branch days. temazepam 2019- No [id number] 15mg Take 1 U nivers 15 mg - 05-07 capsule by ity of capsule 00:00: 00:00 mouth at [place] 00 :00 bedtime as Medical needed for Branch Insomnia. potassium 2019- No [id number] 20meq Take 20 [facility] chloride 20 - 05-07 mEq by ity o f mEq packet 00:00: 00:00 mouth [place] 00 :00 daily. Medical Take with Branch lasix in the morning OLANZapine 2019- No [id number] 2.5mg Take 1 [facility] 2.5 mg 4- 05-07 tablet by ity of tablet 00:00: 00:00 mouth at [place] 00 :00 bedtime Medical for 30 Branch days. temazepam 2019- No [id number] 15mg Take 1 U nivers 15 mg 4-22 05-07 capsule by ity of capsule 00:00: 00:00 mouth at [place] 00 :00 bedtime as Medical needed for [place] Insomnia. potassium 2020-0 2020- No [id number] 20meq Take 20 [facility] chloride 20 03-07-07 mEq by ity o f mEq packet 00:00: 00:00 mouth [place] 00 :00 daily. Medical Take with [place] lasix in the morning isosorbide 2020-0 2020- No 60mg 60 mg, Univ ers mononitrate 03-06- Oral, ity of (IMDUR) 24 14:00: 13:43 DAILY, [place] hr tablet 00 :56 First dose Medi birdie 60 mg on [facility] 03/06/20 at 0900, Until Discontinu ed, Routine OLANZapine 2020-0 Yes 2.5mg 2.5 mg, Uni vers (ZyPREXA) - Oral, QHS, ity of tablet 2.5 02:00: First dose [place] mg 00 on [facility] 03/05/20 at Branch 2100, Until Discontinu ed, Routine insulin 2020-0 Yes 10U [address], [facility] gl[facility] 03-06 Subcutaneo ity o f (LANTUS 02:00: us, QHS, [place] U-100) 00 First dose Medical injection on [facility] 10 Units 03/05/20 at 2100, Until Discontinu ed, Routine donepezil 2020-0 Yes 5mg 5 mg, Univers (ARICEPT) - Oral, QHS, ity of tablet 5 mg 02:00: First dose [place] 00 on [facility] 03/05/20 at Branch 2100, Until Discontinu ed, Routine atorvastati 2020-0 Yes 40mg 40 mg, Univ ers n (LIPITOR) - Oral, QHS, it y of tablet 40 02:00: First dose [place] mg 00 on [facility] 03/05/20 at Branch 2100, Until Discontinu ed, Routine isosorbide 2020-0 2020- No 30mg 30 mg, Univ ers mononitrate 03-05 Oral, ity of (IMDUR) 24 15:30: 15:21 ONCE, 1 [place] hr tablet 00 :00 dose, [facility] Medic al 30 mg 03/05/20 at Branch 1030, Routine spironolact 2020-0 Yes 12.5mg 12.5 mg, Univers one 4-20 Oral, ity of (ALDACTONE) 14:00: DAILY, [place] tablet 12.5 00 First dose Me dical mg on [facility] 03/05/20 at 0900, Until Discontinu ed, Routine memantine 2020-0 Yes 10mg 10 mg, Univer s (NAMENDA) 4-20 Oral, ity of tablet 10 14:00: DAILY, [place] mg 00 First dose Medical on [facility] 03/05/20 at 0900, Until Discontinu ed, Routine
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 Restricted medication : MEGADC lisinopril 2020-0 2020- No 5mg 5 mg, Unive rs (PRINIVIL,Z -05 03-21 Oral, ity of ESTRIL) 14:00: 13:44 DAILY, [place] tablet 5 mg 00 :01 First dose Me dical on [facility] 03/05/20 at 0900, Until Discontinu ed, Routine isosorbide 2020-0 2020- No 30mg 30 mg, Univ ers mononitrate -05 03-20 Oral, ity of (IMDUR) 24 14:00: 14:20 DAILY, [place] hr tablet 00 :04 First dose Medi birdie 30 mg on [facility] 03/05/20 at 0900, Until Discontinu ed, Routine ranolazine 2020-0 Yes 500mg 500 mg, Uni vers (RANEXA) 12 4-20 Oral, ity of hr tablet 13:00: Q12H, [place] 500 mg 00 First dose Medical on [facility] 03/05/20 at 0800, Until [...] injection 42 Starting Medica l 25 mL [facility] 03/04/20 at 2202, Until Discontinu ed, ADAMA, Blood Glucose < or = 70 mg/dL and patient is unable to swallow or has mental status changes. furosemide 2020-0 Yes 40mg 40 mg, Unive rs (LASIX) 4-20 Oral, ity of tablet 40 03:00: QAM+PM, [place] mg 00 First dose Medical on [place] Branch 03/04/20 at 2200, Until Discontinu ed, Routine cyanocobala 2020-0 Yes 1000ug 1,000 mcg, Univers min 4-20 Subcutaneo ity of (VITAMIN 03:00: us, Q24H, [place] B12) 00 First dose Medical injection on [facility] 1,000 mcg 03/04/20 at 2200, Until Discontinu ed, Routine heparin 2020-0 Yes 5000U 5,000 Univers (porcine) 4-20 Units, ity of injection 03:00: Subcutaneo [place] 5,000 Units 00 us, Q8H, Medi birdie First dose Branch on [place] 03/04/20 at 2200, Until Discontinu ed, Routine ondansetron 2019-0 Yes 4mg 4 mg, Slow Univers (ZOFRAN 4-20 IV Push, ity of (PF)) 02:34: Q6HPRN, [place] injection 4 40 Starting Medi birdie mg [facility] 03/04/20 at 2134, Until Discontinu ed, Routine, Nausea and Vomiting (N/V) traMADol 2019-0 2020- No 50mg 50 mg, Univer s (ULTRAM) 4-20 04-22 Oral, ity of tablet 50 02:34: 02:33 Q8HPRN, [place] mg 23 :23 Starting Medical [facility] 03/04/20 at 2134, Until 03/06/20 at 2133, Routine, Pain (scale 4-6) acetaminoph 2019-0 Yes 650mg 650 mg, Un mel en 4-20 Oral, ity of (TYLENOL) 02:34: Q6HPRN, [place] tablet 650 20 Starting Medic al mg [facility] 03/04/20 at 2134, Until Discontinu ed, Routine, Pain (scale 1-3) lisinopril 2020-0 Yes [id number] 5mg Take 1 [facility] 5 mg tablet 4-18 tablet by ity of 00:00: mouth [place] 00 daily. [facility] Branch isosorbide 2020-0 Yes [id number] 30mg Take 1 [facility] mononitrate 4-18 tablet by ity of 30 mg 24 hr 00:00: mouth [place] tablet 00 daily. [facility] Branch lisinopril 2020-0 Yes [id number] 5mg Take 1 [facility] 5 mg tablet 4-18 tablet by ity of 00:00: mouth [place] 00 daily. [facility] Branch isosorbide 2020-0 Yes [id number] 30mg Take 1 [facility] mononitrate 4-18 tablet by ity of 30 mg 24 hr 00:00: mouth [place] tablet 00 daily. [facility] Branch lisinopril 2020-0 2020- No [id number] 5mg Take 1 [facility] 5 mg tablet 4-18 04-22 tablet by it y of 00:00: 00:00 mouth [place] 00 :00 daily. [facility] Branch isosorbide 2020-0 2020- No [id number] 30mg Take 1 [facility] mononitrate 4-18 04-22 [...] N ORAL 4-17 mouth. ity of 17:34: [place] [address] Medical Branch thiamine 2020-0 Yes 100mg Take 100 Univ ers (VITAMIN 4-17 mg by ity of B-1) 100 mg 17:34: mouth [place] tablet 27 daily. Medical Branch aspirin 81 2019-0 Yes 81mg Take 81 mg U nivers mg chewable 4-17 by mouth ity of tablet 17:34: daily. [place] [address] Medical Branch atorvastati 2019-0 Yes 40mg Take [...] N ORAL 4-17 mouth. ity of 17:34: [place] [address] Medical Branch thiamine 2020-0 Yes 100mg Take 100 Univ ers (VITAMIN 4-17 mg by ity of B-1) 100 mg 17:34: mouth [place] tablet 27 daily. Medical Branch aspirin 81 2020-0 Yes 81mg Take 81 mg U nivers mg chewable 4-17 by mouth ity of tablet 17:34: daily. [place] [address] Medical Branch atorvastati 2020-0 Yes 40mg Take 40 mg Univers n 40 mg 4-17 by mouth ity of tablet 17:34: at [place] [address] bedtime. Medical Branch NaCl 0.9% 2020-0 Yes [...] Until Discontinu ed, Routine furosemide 2020-0 Yes [id number] 40mg Take 1 [facility] 40 mg 4-17 tablet by ity of tablet 00:00: mouth [place] 00 every Medical morning Branch and evening. potassium 2020-0 Yes [id number] 20meq Take 20 [facility] chloride 20 4-17 mEq by ity of mEq packet 00:00: mouth [place] 00 daily. Medical Branch vitamin 2020-0 Yes [id number] 1000ug Take 1 U nivers B-12 1,000 4-17 tablet by ity of mcg tablet 00:00: mouth [place] 00 daily. Medical Branch furosemide 2020-0 Yes [id number] 40mg Take 1 [facility] 40 mg 4-17 tablet by ity of tablet 00:00: mouth [place] 00 every Medical morning Branch and evening. potassium 2020-0 Yes [id number] 20meq Take 20 [facility] chloride 20 4-17 mEq by ity of mEq packet 00:00: mouth [place] 00 daily. Medical Branch vitamin 2020-0 Yes [id number] 1000ug Take 1 U nivers B-12 1,000 4-17 tablet by ity of mcg tablet 00:00: mouth [place] 00 daily. Medical Branch furosemide 2020-0 2020- No [id number] 40mg Take 1 [facility] 40 mg 4-17 04-22 tablet by ity of tablet 00:00: 00:00 mouth [place] 00 :00 every Medical morning Branch and evening. potassium 2020-0 2020- No [id number] 20meq Take 20 [facility] chloride 20 4-17 04-22 mEq by ity o f mEq packet 00:00: 00:00 mouth [place] 00 :00 daily. Medical Branch vitamin 2020-0 2020- No [id number] 1000ug Take 1 [facility] B-12 1,000 4-17 04-22 tablet by ity of mcg tablet 00:00: 00:00 mouth [place] 00 :00 daily. Medical Branch cyanocobala 2020-0 Yes 1000ug 1,000 mcg, [facility] min 4-16 Subcutaneo ity of (VITAMIN 20:45: us, Q24H, [place] B12) 00 First dose Medical injection on [facility] 1,000 mcg 03/01/20 at 1545, [...] at 0900, Until Discontinu ed, Routine
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 Restricted medication : MEGADC lisinopril 2020-0 [...] First dose [place] 40 mEq 00 on [facility] 03/01/20 at Branch 0830, Until Discontinu ed, Routine magnesium 2020-0 2020- No 2g 2 g, IV Univ ers sulfate in 03-01 Infusion, ity of water 2 03:30: 03:30 ONCE, 1 [place] gram/50 mL 00 :00 dose, Thu [facility] birdie (4 %) 2 g 02/29/20 at [facility] piggyback 223 metoprolol 2020-0 2020- No 5mg 5 mg, Slow Univers (LOPRESSOR) 03-01 IV Push, ity of injection 5 03:30: 03:37 ONCE, 1 [place] mg 00 :00 dose, [facility] 02/29/20 at Branch 2230, ADAMA [...] [place] 40 mEq 00 :00 dose, [facility] Medical 02/29/20 at Branch 2000, Routine [...] 02-14 by mouth ity of 00:00: daily. [address] donepezil 5 2019-0 2020- No 5mg Take 5 mg Univers mg tablet 02-1408 by mouth ity o f 00:00: 00:00 daily. [place] 00 :00 [facility] nitroglycer 2019-0 2020- No DISSOLVE U nivers [...] by mouth ity of tablet 23:00: daily. [place] [address] Medical Branch atorvastati 2020-0 Yes 40mg Take 40 mg Univers n 40 mg 3-03 by mouth ity of tablet 23:00: at [place] [address] bedtime. Medical Branch NaCl 0.9% 2020-0 Yes [...] N ORAL 3-03 mouth. ity of 23:00: [place] [address] Medical Branch thiamine 2020-0 Yes 100mg Take 100 Univ ers (VITAMIN 3-03 mg by ity of B-1) 100 mg 23:00: mouth [place] tablet 52 daily. Medical Branch aspirin 81 2020-0 Yes 81mg Take 81 mg U nivers mg chewable 3-03 by mouth ity of tablet 23:00: daily. [place] [address] Medical Branch atorvastati 2020-0 Yes 40mg Take 40 mg Univers n 40 mg 3-03 by mouth ity of tablet 23:00: at [place] [address] bedtime. Medical Branch NaCl 0.9% 2020-0 Yes [...] ity of Vitamin D3, 23:00: [place] 2,000 [place] [address] Medical capsule Branch metoprolol 2020-0 Yes 12.5mg Take 12.5 Univers tartrate 3-03 mg by ity of 12.5 mg 23:00: mouth 2 [place] 52 (two) Medical times Branch daily. MULTIVITAMI 2020-0 Yes Take by Un mel N ORAL 3-03 mouth. ity of 23:00: [place] [address] Medical Branch thiamine 2020-0 Yes 100mg Take 100 Univ ers (VITAMIN 3-03 mg by ity of B-1) 100 mg 23:00: mouth [place] tablet 52 daily. Medical Branch aspirin 81 2020-0 Yes 81mg Take 81 mg U nivers mg chewable 3-03 by mouth ity of tablet 23:00: daily. [place] [address] Medical Branch atorvastati 2020-0 Yes 40mg Take 40 mg Univers n 40 mg 3-03 by mouth ity of tablet 23:00: at [place] [address] bedtime. Medical Branch NaCl 0.9% 2020-0 Yes [...] ity of Vitamin D3, 23:00: [place] 2,000 [place] [address] Medical capsule Branch metoprolol 2020-0 Yes 12.5mg Take 12.5 Univers tartrate 3-03 mg by ity of 12.5 mg 23:00: mouth 2 [place] 52 (two) Medical times Branch daily. MULTIVITAMI 2020-0 Yes Take by Un mel N ORAL 3-03 mouth. ity of 23:00: [place] [address] Medical Branch thiamine 2020-0 Yes 100mg Take 100 Univ ers (VITAMIN 3-03 mg by ity of B-1) 100 mg 23:00: mouth [facility] 52 daily. Medical Branch aspirin 81 2020-0 Yes 81mg Take 81 mg U nivers mg chewable 3-03 by mouth ity of tablet 23:00: daily. [place] [address] Medical Branch atorvastati 2020-0 Yes 40mg Take 40 mg Univers n 40 mg 3-03 by mouth ity of tablet 23:00: at [place] [address] bedtime. Medical Branch NaCl 0.9% 2019-0 Yes [...] dose [place] mg 00 on Mon [facility] 01/16/20 at Branch 2100, Until Discontinu ed, Routine ranolazine 2020-0 2020- No [id number] 500mg Take 1 [facility] 500 mg 12 - 04-03 tablet by ity of hr tablet 00:00: 04:59 mouth [place] 00 :00 every 12 Medical (twelve) Branch hours for 30 days. ranolazine 2020-0 2020- No [id number] 500mg Take 1 [facility] 500 mg 12 - 04-03 tablet by ity of hr tablet 00:00: 04:59 mouth [place] 00 :00 every 12 Medical (twelve) Branch hours for 30 days. ranolazine 2020-0 2020- No [id number] 500mg Take 1 [facility] 500 mg 12 01-16- tablet by ity of hr tablet 00:00: 04:59 mouth [place] 00 :00 every 12 Medical (twelve) Branch hours for 30 days. ranolazine 2020-0 2020- No [id number] 500mg Take 1 [facility] 500 mg 12 01-16- tablet by ity of hr tablet 00:00: 04:59 mouth [place] 00 :00 every 12 Medical (twelve) Branch hours for 30 days. ranolazine 2020-0 Yes 500mg 500 mg, Uni vers (RANEXA) 12 01-15 Oral, ity of hr tablet 22:30: Q12H, [place] 500 mg 00 First dose Medical on [facility] 01/16/20 at 1630, Until Discontinu ed, Routine insulin 2020-0 Yes 30U 30 Units, Unive rs glargine 01-15 Subcutaneo ity o f (LANTUS 15:00: [place], DAILY, [place] U-100) 00 First dose Medical injection on [facility] 30 Units 01/16/20 at 0900, Until Discontinu ed furosemide 2020-0 Yes 40mg 40 mg, Unive rs (LASIX) 01-15 Oral, ity of tablet 40 15:00: DAILY, [place] mg 00 First dose Medical on [facility] 01/16/20 at 0900, Until Discontinu ed, Routine aspirin 2020-0 Yes 81mg 81 mg, Univers chewable 01-15 Oral, ity of tablet 81 15:00: DAILY, [place] mg 00 First dose Medical on [facility] 01/16/20 at 0900, Until Discontinu ed, Routine metoprolol 2020-0 Yes 12.5mg 12.5 mg, U nivers tartrate - Oral, BID, ity o f (LOPRESSOR) 14:00: First dose [place] tablet 12.5 00 on [facility] Medica l mg 01/16/20 at Branch 0800, Until Discontinu ed, Routine Sliding 2020-0 Yes Subcutaneo Univ ers Scale 3-02 us, Q6H, ity of Insulin-Reg 12:00: First dose [place] ular + Fsbg 00 on [facility] Medica l Testing 01/16/20 at [...] 01/15/20 at 2345, ADAMA furosemide 2018-11 Yes [id number] 40mg Take 1 [facility] 40 mg 0-26 tablet by ity of tablet 00:00: mouth [place] 00 daily. Medical Branch furosemide 2018-11 Yes [id number] 40mg Take 1 [facility] 40 mg 0-26 tablet by ity of tablet 00:00: mouth [place] 00 daily. Medical Branch furosemide 2018-11 Yes [id number] 40mg Take 1 [facility] 40 mg 0-26 tablet by ity of tablet 00:00: mouth [place] 00 daily. Medical Branch furosemide 2018-11 Yes [id number] 40mg Take 1 [facility] 40 mg 0-26 tablet by ity of tablet 00:00: mouth [place] 00 daily. Medical Branch furosemide 2018-11 2020- No [id number] 40mg Take 1 [facility] 40 mg 0-26 04-17 tablet by ity of tablet 00:00: 00:00 mouth [place] 00 :00 daily. Medical Branch magnesium 2018- Yes [id number] 400mg Take 400 [facility] oxide 420 0-23 mg by ity of mg Tab 00:00: mouth [place] 00 daily. Medical Branch magnesium 2019-1 Yes [id number] 400mg Take 400 [facility] oxide 420 0-23 mg by ity of mg Tab 00:00: mouth [place] 00 daily. Medical Branch magnesium 2019-1 Yes [id number] 400mg Take 400 [facility] oxide 420 0-23 mg by ity of mg Tab 00:00: mouth [place] 00 daily. Medical Branch magnesium 2019- Yes [id number] 400mg Take 400 [facility] oxide 420 0-23 mg by ity of mg Tab 00:00: mouth [place] 00 daily. [facility] Branch magnesium 2019-1 Yes [id number] 400mg Take 400 Univers oxide 420 0-23 mg by ity of mg Tab 00:00: mouth [place] 00 daily. [facility] Branch magnesium 2019- Yes [id number] 400mg Take 400 Univers oxide 420 0-23 mg by ity of mg Tab 00:00: mouth [place] [address] [facility] magnesium 2019- 2020- No [id number] 400mg Take 400 [facility] oxide 420 0-23 04-22 mg by ity of mg Tab 00:00: 00:00 mouth [place] 00 :[address] [facility] Insulin 2019-0 Yes [id number] 30U inject 30 Univers Glargine 9-11 Units ity of 100 unit/mL 00:00: under the [place] (3 mL) 00 skin every Medical injection morning. Branch Insulin 2019-0 Yes [id number] 30U inject 30 Univers Glargine 9-11 Units ity of 100 unit/mL 00:00: under the [place] (3 mL) 00 skin every Medical injection morning. Branch Insulin 2019-0 Yes [id number] 30U inject 30 [facility] Glargine 9-11 Units ity of 100 unit/mL 00:00: under the [place] (3 mL) 00 skin every Medical injection morning. Branch Insulin 2019-0 Yes [id number] 30U inject 30 [facility] Glargine 9-11 Units ity of 100 unit/mL 00:00: under the [place] (3 mL) 00 skin every Medical injection morning. Branch Insulin 2019-0 Yes [id number] 30U inject 30 [facility] Glargine 9-11 Units ity of 100 unit/mL 00:00: under the [place] (3 mL) 00 skin every Medical injection morning. Branch Insulin Yes [id number] 30U inject 30 [facility] Glargine 9-11 Units ity of 100 unit/mL 00:00: under the [place] (3 mL) 00 skin every Medical injection morning. Branch Insulin Yes [id number] 30U inject 30 [facility] Glargine 9-11 Units ity of 100 unit/mL 00:00: under the [place] (3 mL) 00 skin every Medical injection morning. Branch Insulin 2020- No [id number] 30U inject 30 Univers Glargine 9-11 04-22 [...] mg under ity of 15:26: the skin. [place] [address] Medical Branch Cholecalcif Yes Take by Un mel ann, 5-10 mouth. ity of Vitamin D3, 15:26: [place] 2,000 unit 43 Medical capsule Branch metoprolol Yes 12.5mg Take 12.5 Univers tartrate 5-10 mg by ity of 12.5 mg 15:26: mouth 2 [place] 43 (two) Medical times Branch daily. MULTIVITAMI Yes Take by Un mel N ORAL 5-10 mouth. ity of 15:26: [place] [address] Medical Branch thiamine Yes 100mg Take 100 Univ ers (VITAMIN 5-10 mg by ity of B-1) 100 mg 15:26: mouth [place] tablet 43 daily. Medical Branch aspirin 81 Yes 81mg Take 81 mg U nivers mg chewable 5-10 by mouth ity of tablet 15:26: daily. [place] [address] Medical Branch atorvastati Yes 40mg Take 40 mg Univers n 40 mg 5-10 by mouth ity of tablet 15:26: at [place] [address] bedtime. Medical Branch furosemide Yes 40mg Take 40 mg U nivers 40 mg 5-10 by mouth ity of tablet 15:26: daily. [place] [address] Medical Branch NaCl 0.9% 2019-0 Yes 10mL [...] mg under ity of 15:26: the skin. [place] [address] Medical Branch Cholecalcif 0 Yes Take by Un mel ann, 5-10 mouth. ity of Vitamin D3, 15:26: [place] 2,000 unit Medical capsule Branch metoprolol 0 Yes 12.5mg Take 12.5 Univers tartrate 5-10 mg by ity of 12.5 mg 15:26: mouth 2 [place] [address] (two) Medical times Branch daily. MULTIVITAMI 0 Yes Take by Un mel N ORAL 5-10 mouth. ity of 15:26: [place] [address] Medical Branch thiamine 0 Yes 100mg Take 100 Univ ers (VITAMIN 5-10 mg by ity of B-1) 100 mg 15:26: mouth [place] tablet 43 daily. Medical Branch aspirin 81 0 Yes 81mg Take 81 mg U nivers mg chewable 5-10 by mouth ity of tablet 15:26: daily. [place] [address] Medical Branch atorvastati 0 Yes 40mg Take 40 mg Univers n 40 mg 5-10 by mouth ity of tablet 15:26: at [place] 43 bedtime. Medical Branch furosemide 0 Yes 40mg Take 40 mg U nivers 40 mg 5-10 by mouth ity of tablet 15:26: daily. [place] [address] Medical Branch NaCl 0.9% 2019-0 Yes 10mL Inject 10 Uni vers (NS) Soln 5-10 mL ity of 10 mL with 15:26: intravenou [place] sodium 43 sly once Medical chloride now. Branch 2.5 mEq/mL SolP 17.125 mEq insulin 2019-0 Yes [id number] 4U inject 4 U nivers lispro, 5-10 Units ity of human, 100 00:00: under the [place] unit/mL 00 skin 3 Medical injection (three) Branch times daily before meals. insulin 2019-0 Yes [id number] 4U inject 4 U nivers lispro, 5-10 Units ity of human, 100 00:00: under the [place] unit/mL 00 skin 3 Medical injection (three) Branch times daily before meals. insulin 2018-0 Yes [id number] 4U inject 4 U nivers lispro, 5-10 Units ity of human, 100 00:00: under the [place] unit/mL 00 skin 3 Medical injection (three) Branch times daily before meals. insulin 2018-0 Yes [id number] 4U inject 4 U nivers lispro, 5-10 Units ity of human, 100 00:00: under the [place] unit/mL 00 skin 3 Medical injection (three) Branch times daily before meals. insulin 2018-0 Yes [id number] 4U inject 4 U nivers lispro, 5-10 Units ity of human, 100 00:00: under the [place] unit/mL 00 skin 3 Medical injection (three) Branch times daily before meals. insulin 2018-0 Yes [id number] 4U inject 4 U nivers lispro, 5-10 Units ity of human, 100 00:[place] 00 skin 3 Medical injection (three) Branch times daily before meals. Insulin 2018-0 Yes [id number] 18U inject Uni vers Glargine 5-10 18-24 ity of 100 unit/mL 00:00: Units [place] (3 mL) 00 under the Medical injection skin every Bran ch morning. insulin 2018-0 Yes [id number] 4U inject 4 U nivers lispro, 5-10 Units ity of human, 100 00:00: [place] unit/mL 00 skin 3 Medical injection (three) Branch times daily before meals. insulin 2019-0 Yes [id number] 4U inject 4 U nivers lispro, 5-10 Units ity of human, 100 00:00: [place] unit/mL 00 skin 3 Medical injection (three) Branch times daily before meals. insulin 2018-0 Yes [id number] 4U inject 4 U nivers lispro, 5-10 Units ity of human, 100 00:00: [place] unit/mL 00 skin 3 Medical injection (three) Branch times daily before meals. insulin 2018- Yes [id number] 4U inject 4 U nivers lispro, 5-10 Units ity of human, 100 00:00: [place] unit/mL 00 skin 3 Medical injection (three) Branch times daily before meals. insulin Yes [id number] 4U inject 4 U nivers lispro, 5-10 Units ity of human, 100 00:00: [place] unit/mL 00 skin 3 Medical injection (three) Branch times daily before meals. insulin 2020- No [id number] 4U inject 4 Univers lispro, 5-10 05-07 Units ity of human, 100 00:00: 00:00 [place] unit/mL 00 :00 skin 3 Medical injection (three) Branch times daily before meals. insulin 2019- No [id number] 4U inject 4 Univers lispro, 5-10 05-07 Units ity of human, 100 00:00: 00:00 [place] unit/mL 00 :00 skin 3 Medical injection (three) Branch times daily before meals. Insulin 2019- No [id number] 18U inject Un mel Glargine 03-25 18-24 [...] 16:39: mouth [place] 29 daily. Medical Branch Vitamin B-1 Vitamin B-1 Yes Anneliese 1 tablet Common Millender [facility] Multivitami Multivitami Yes Anneliese as Common n n Millender directed [facility] Lantus Lantus Yes Anneliese as Common Mill[place] directed [facility] Lasix Lasix Yes Anneliese 1 [facility] Isosorbide Isosorbide Yes Anneliese 1 tablet Common Mononitrate Mononitrate Millender in the [facility] Lyrica Lyrica Yes Anneliese 1 capsule Commo n Millender [facility] Potassium Potassium Yes Anneliese 1 capsule Common Chloride Chloride Millender with food [facility] Tylenol # 3 Tylenol # 3 Yes Anneliese one tab Common Millender [facility] Vitamin D-3 Vitamin D-3 Yes Anneliese 2 capsule Common Millender [facility] Humalog Humalog Yes Anneliese as Common Millender directed [facility] Aspir-Low Aspir-Low Yes Anneliese 1 tablet Common Millender [facility] Namzaric Namzaric Yes Anneliese 1 Common Millender [facility] Zyprexa Zyprexa Yes Anneliese 1 tablet Comm on Millender [facility] Immunizations Ordered Filled Immunization Date Status Comments [facility] e Immunization Name Name SARS-COV-2 COVID-19 2021-09-16 Completed Unive rsity of MODERNA VACCINE 00:00:00 [facility] SARS-COV-2 COVID-19 2021-09-16 Completed Unive rsity of MODERNA VACCINE 00:00:00 [facility] SARS-COV-2 COVID-19 2021-09-16 Completed Unive rsity of MODERNA VACCINE 00:00:00 [facility] SARS-COV-2 COVID-19 2021-09-16 Completed Unive rsity of MODERNA VACCINE 00:00:00 [facility] SARS-COV-2 COVID-19 2021-08-17 Completed Unive rsity of MODERNA VACCINE 00:00:00 [facility] Influenza High Dose 2021-08-17 Completed Unive rsity of 00:00:00 [facility] SARS-COV-2 COVID-19 2021-08-17 Completed Unive rsity of MODERNA VACCINE 00:00:00 [facility] Influenza High Dose 2021-08-17 Completed Unive rsity of 00:00:00 [facility] SARS-COV-2 COVID-19 2021-08-17 Completed Unive rsity of MODERNA VACCINE 00:00:00 [facility] Influenza High Dose 2021-08-17 Completed Unive rsity of 00:00:00 [facility] SARS-COV-2 COVID-19 2021-08-17 Completed Unive rsity of MODERNA VACCINE 00:00:00 [facility] Influenza High Dose 2021-08-17 Completed Unive rsity of 00:00:00 [facility] Zoster(Zostavax)( 2020-09-14 Completed Unive rsity of ingles) 00:00:00 [facility] Zoster(Zostavax)( 2020-09-14 Completed Unive rsity of ingles) 00:00:00 [facility] Zoster(Zostavax)( 2020-09-14 Completed Unive rsity of ingles) 00:00:00 [facility] Zoster(Zostavax)( 2020-09-14 Completed Unive rsity of ingles) 00:00:00 [facility] Influenza High Dose 2020-07-13 Completed Unive rsity of 00:00:00 [facility] Influenza High Dose 2020-07-13 Completed Unive rsity of 00:00:00 [facility] Influenza High Dose 2020-07-13 Completed Unive rsity of 00:00:00 [facility] Influenza High Dose 2020-07-13 Completed Unive rsity of 00:00:00 [facility] Influenza High Dose 2019-09-15 Completed Unive rsity of 00:00:00 [facility] Influenza High Dose 2019-09-15 Completed Unive rsity of 00:00:00 [facility] Influenza High Dose 2019-09-15 Completed Unive rsity of 00:00:00 [facility] Influenza High Dose 2019-09-15 Completed Unive rsity of 00:00:00 [facility] Influenza Virus 2018-09-09 Completed Universit y of Vaccine 00:00:00 [facility] Influenza Virus 2018-09-09 Completed Universit y of Vaccine 00:00:00 [facility] Influenza Virus 2018-09-09 Completed Universit y of Vaccine 00:00:00 [facility] Influenza Virus 2018-09-09 Completed Universit y of Vaccine 00:00:00 [facility] Influenza Virus 2018-09-09 Completed Universit y of Vaccine 00:00:00 [facility] Influenza Virus 2018-09-09 Completed Universit y of Vaccine 00:00:00 [facility] Influenza Virus 2018-09-09 Completed Universit y of Vaccine 00:00:00 [facility] Influenza Virus 2018-09-09 Completed Universit y of Vaccine 00:00:00 [facility] Influenza Virus 2018-09-09 Completed Universit y of Vaccine 00:00:00 [facility] Influenza Virus 2018-09-09 Completed Universit y of Vaccine 00:00:00 [facility] Influenza Virus 2018-09-09 Completed Universit y of Vaccine 00:00:00 [facility] Influenza Virus 2018-09-09 Completed Universit y of Vaccine 00:00:00 [facility] Influenza Virus 2018-09-09 Completed Universit y of Vaccine 00:00:00 [facility] Influenza Virus 2018-09-09 Completed Universit y of Vaccine 00:00:00 [facility] Influenza Virus 2018-09-09 Completed Universit y of Vaccine 00:00:00 [facility] Influenza Virus 2018-09-09 Completed Universit y of Vaccine 00:00:00 [facility] Influenza Virus 2018-09-09 Completed Universit y of Vaccine 00:00:00 [facility] Influenza Virus 2018-09-09 Completed Universit y of Vaccine 00:00:00 [facility] Influenza Virus 2018-09-09 Completed Universit y of Vaccine 00:00:00 [facility] Influenza Virus 2018-09-09 Completed Universit y of Vaccine 00:00:00 [facility] Influenza Virus 2018-09-09 Completed Universit y of Vaccine 00:00:00 [facility] Influenza Virus 2018-09-09 Completed Universit y of Vaccine 00:00:00 [facility] Pneumococcal 2016-11-02 Completed University o f Polysaccharide, 00:00:00 [place] Med ical PPSV23 (PNEUMOVAX) [place] Pneumococcal 2016-11-02 Completed University o f Polysaccharide, [...] ical PPSV23 (PNEUMOVAX) Branch Pneumococcal 2016-11-02 Completed [place] o f Polysaccharide, 00:00:00 [place] Med ical PPSV23 (PNEUMOVAX) Branch Pneumococcal 2016-11-02 Completed [place] o f Polysaccharide, 00:00:00 [place] Med ical PPSV23 (PNEUMOVAX) Branch Pneumococcal 2016-11-02 Completed [place] o f Polysaccharide, 00:00:00 [place] [facility] ical PPSV23 (PNEUMOVAX) Branch Vital Signs Vital Name Observation Time Observation Value Comments Source Systolic blood 2022-03-01 16:36:00 143 mm[Hg] Univer sity of pressure [facility] Diastolic blood 2022-03-01 16:36:00 80 mm[Hg] Unive rsity of [facility] Heart rate 2022-03-01 16:36:00 98 /min [facility] Respiratory rate 2022-03-01 16:36:00 16 /min [facility] O[facility] saturation in 2022-03-01 16:36:00 97 /min University of Arterial blood by [place] Paper[email or web address] Pulse oximetry Branch Body temperature 2022-03-01 11:42:[address] [facility] Body height 2022-03-01 11:42:00 170.2 cm [facility] Body weight 2022-03-01 11:42:00 77.111 kg [facility] BMI 2022-03-01 11:42:00 26.63 kg/m2 [facility] Systolic blood 2021-11-02 17:17:00 109 mm[Hg] Univer sity of [facility] Diastolic blood 2021-11-02 17:17:00 67 mm[Hg] Unive rsity of [facility] Heart rate 2021-11-02 17:17:00 84 /min [facility] Body temperature 2021-11-02 17:17:[address] [facility] ersity [facility] Respiratory rate 2021-11-02 17:17:00 18 /min [facility] Oxygen saturation in 2021-11-02 17:17:00 95 /min University Arterial blood by [place] [email or web address] Pulse oximetry Branch Body weight 2021-11-02 [...] /min University of Arterial blood by [place] [email or web address] birdie Pulse oximetry Branch Body temperature 2021-04-25 [...] 98 /min University of Arterial blood by [facility] Pulse oximetry Branch Heart rate 2020-06-26 [...] 97 /min University of Arterial blood by [facility] Pulse oximetry Branch Body temperature 2020-05-24 [...] 97 /min University of Arterial blood by [facility] Pulse oximetry Branch Body temperature 2020-05-24 [...] 02:31:00 72 mm[Hg] Unive rsity of pressure [facility] Heart rate 2020-03-24 02:31:00 69 /min Universi ty of [facility] Body temperature 2020-03-24 02:31:00 36.39 Priyanka Univ ersity of [facility] Respiratory rate 2020-03-24 02:31:00 18 /min Univ ersity of [facility] Oxygen saturation in 2020-03-24 02:31:00 97 /min University of Arterial blood by [facility] Pulse oximetry Branch Systolic blood 2020-03-23 21:35:00 100 mm[Hg] Univer sity of pressure [place] [facility] Diastolic blood 2020-03-23 21:35:00 59 mm[Hg] Unive rsity of pressure [facility] Heart rate 2020-03-23 21:35:00 79 /min Universi ty of [place] [facility] [place] Body temperature 2020-03-23 21:35:00 36.78 Priyanka Univ ersity of [facility] Respiratory rate 2020-03-23 21:35:00 18 /min Univ ersity of [facility] Oxygen saturation in 2020-03-23 21:35:00 99 /min University of Arterial blood by [facility] Pulse oximetry Branch Body weight 2020-03-23 [...] University of Arterial blood by [facility] birdie Pulse oximetry Branch Body temperature [...] 95 /min University of Arterial blood by [facility] Pulse oximetry Branch Body height 2020-03-05 [...] Branch Respiratory rate 2020-03-02 15:49:00 19 /min [facility] Oxygen saturation in 2020-03-02 15:49:00 96 /min University of Arterial blood by [facility] Pulse oximetry Branch Body height 2020-03-01 00:54:00 170.2 cm Universi ty [facility] Body weight 2020-03-01 00:54:00 76.975 kg Universi ty [facility] BMI 2020-03-01 00:54:00 26.58 kg/m2 Universi ty [facility] Systolic blood 2020-01-17 21:08:00 116 mm[Hg] Univer sity of pressure [facility] Diastolic blood 2020-01-17 21:08:00 78 mm[Hg] Unive rsity of pressure [facility] Heart rate 2020-01-17 21:08:00 88 /min Universi [facility] Body temperature 2020-01-17 21:08:00 36.72 Priyanka [facility] Respiratory rate 2020-01-17 21:08:00 18 /min [facility] Oxygen saturation in 2020-01-17 21:08:00 98 /min [place] of Arterial blood by [facility] Pulse oximetry Branch Body height 2020-01-16 06:21:00 172.7 cm Universi ty [facility] Body weight 2020-01-16 04:35:00 83.462 kg [facility] BMI 2020-01-16 04:35:00 27.98 kg/m2 [facility] Procedures Procedure Date / Time Performing Clinician Source Performed XR LUMBAR SPINE 2 VW 2022-03-01 14:18:00 Angelika Aguilar [facility] EXTERNAL PROVIDER RECORDS 2021-11-19 06:01:00 Doctor Unassigned, [facility] [place] POCT GLUCOSE (AUTOMATED) 2021-11-02 22:49:00 Aida Shah [facility] POCT GLUCOSE (AUTOMATED) 2021-11-02 17:06:00 Aida Shah [facility] [place] [facility] POCT GLUCOSE (AUTOMATED) 2021-11-02 13:30:00 Aida Shah [facility] [place] [facility] TROPONIN I 2021-11-02 09:29:00 Alexandra Hdz [facility] BASIC METABOLIC PANEL 2021-11-02 09:29:00 [facility] ([facility], K, CL, CO2, GLUCOSE, Medica l Branch BUN, CREATININE, CA) CBC WITH DIFF 2021-11-02 09:29:00 [facility] N-TERMINAL PRO-BNP 2021-11-02 09:29:00 Alexandra Hdz [facility] POCT GLUCOSE (AUTOMATED) 2021-11-02 01:27:00 Aida Shah [employer] [facility] [place] [facility] POCT GLUCOSE (AUTOMATED) 2021-11-01 17:37:00 [facility] 2021-11-01 13:40:00 [facility] ([facility]OMATED) 2021-11-01 01:10:00 Aida Shah [facility] POCT GLUCOSE (AUTOMATED) 2021-10-31 22:28:00 Alyssa Aida [facility] POCT GLUCOSE (AUTOMATED) 2021-10-31 17:29:00 Martha Drake [facility] TROPONIN I 2021-10-31 16:25:00 Alexandra Hdz [facility] TRANSTHORACIC ECHO (TTE) 2021-10-31 15:53:00 Alexandra Hdz [facility] COMPLETE W/ CONTRAST Medical [facility] POCT GLUCOSE (AUTOMATED) 2021-10-31 13:39:00 Martha Drake Un [facility] TROPONIN I 2021-10-31 10:08:00 [facility] BASIC METABOLIC PANEL 2021-10-31 10:08:00 [facility] (NA, K, CL, CO2, GLUCOSE, Medica l Branch BUN, CREATININE, CA) LIPID PANEL ([id number])(TOTAL 2021-10-31 10:08:00 Alexandra Hdz [facility] TRIGLYCERIDES, HDL) CBC WITH DIFF 2021-10-31 10:08:00 [facility] 2021-10-31 10:08:00 [facility] N-TERMINAL PRO-BNP 2021-10-31 10:08:00 Alexandra Hdz [facility] TROPONIN I 2021-10-31 06:17:00 [facility] CHEST 1 VW 2021-10-31 01:30:56 Martha Drake [facility] LIPASE 2021-10-31 01:25:00 Martha Drake [facility] TROPONIN I 2021-10-31 01:25:00 Martha Drake [facility] COMP. METABOLIC PANEL 2021-10-31 01:25:00 Martha Drake [facility] ([id number]) [facility] CBC WITH DIFF 2021-10-31 01:25:00 Martha Drake [facility] GLYCOSYLATED HEMOGLOBIN 2021-10-31 01:25:00 [facility] PROTHROMBIN TIME / INR 2021-10-31 01:25:00 Martha Drake [facility] ACTIVATED PARTIAL 2021-10-31 01:25:00 Martha Drake [facility] N-TERMINAL PRO-BNP 2021-10-31 01:25:00 Martha Drake [facility] COVID-19 (ID NOW RAPID 2021-10-31 01:25:00 Martha Drake [facility] TESTING) Medical Branch LAB ONLY COVID 2021-10-31 01:25:00 Martha Drake [facility] INTERPRETATION [facility] HB ECG ROUTINE & RHYTHM 2021-10-31 01:20:03 Martha Drake [facility] URINALYSIS 2021-04-25 21:01:00 Nallely Zhao [facility] XR LUMBAR SPINE 2 VW 2021-04-25 18:41:00 Nallely Zhao [facility] XR HIPS 2 VW LEFT 2021-04-25 18:41:[address] [facility] CONSENT/REFUSAL FOR 2021-04-25 15:43:06 Doctor Unacassie, [facility] DIAGNOSIS AND TREATMENT [facility] [place] [facility] CERVICAL SPINE WO 2020-06-26 09:35:01 NandinihiMartha [facility] CONTRAST [facility] CT LUMBAR SPINE WO 2020-06-26 09:35:[address] [facility] CT THORACIC SPINE WO 2020-06-26 09:35:01 [facility] UNILATERAL DUPLEX SCAN OF 2020-05-24 14:53:40 [facility] Medical B [facility] XR ANKLE 3+ VW LEFT 2020-05-24 13:22:26 Charanjit Heck [facility] HEPATIC FUNCTION PANEL 2020-05-24 13:13:00 Charanjit Heck [facility] ([id number]) (ALB,T.PRO,BILI Medical Branch T,BU/BC,ALT,AST,ALK PHOS) BASIC METABOLIC PANEL 2020-05-24 13:13:00 Charanjit Heck [facility] (NA, K, CL, CO2, GLUCOSE, Medica l Branch BUN, CREATININE, CA) CBC WITH DIFFERENTIAL 2020-05-24 13:13:[address] [facility] PROTHROMBIN TIME / INR 2020-05-24 13:13:00 Charanjit Heck [facility] ACTIVATED PARTIAL 2020-05-24 13:13:00 Charanjit Heck [facility] NOTICE OF PRIVACY 2020-05-24 11:38:26 Doctor Blaise, [facility] PRACTICES [facility] CONSENT/REFUSAL FOR 2020-05-24 11:35:52 Doctor Blaise, [facility] DIAGNOSIS [facility] PO[facility]SE (AUTOMATED) 2020-03-23 22:32:00 Jamel Flores [facility] POCT GLUCOSE (AUTOMATED) 2020-03-23 18:07:00 Jamel Flores Justina [facility] POCT GLUCOSE (AUTOMATED) 2020-03-23 14:57:00 Jamel Flores [facility] ECHO ROUTINE W/DOPPLER 2020-03-23 13:33:57 [facility] 2020-03-23 12:56:59 Jamel Flores [facility] MAGNESIUM 2020-03-23 11:15:00 Jerome [facility] TROPONIN I 2020-03-23 11:15:[facility]EL 2020-03-23 11:15:00 Jerome [facility] (NA, K, CL, CO2, GLUCOSE, Medica l Branch BUN, CREATININE, CA) PROTHROMBIN TIME / INR 2020-03-23 11:15:00 Tereza Cano [facility] ACTIVATED PARTIAL 2020-03-23 11:15:00 Jerome [facility] EKG-12 LEAD 2020-03-23 07:51:19 Jamel Flores [facility] MAGNESIUM 2020-03-23 05:55:00 Jerome [facility] TROPONIN I 2020-03-23 05:55:00 Jerome [facility] BASIC METABOLIC PANEL 2020-03-23 05:55:00 Jerome [facility] (NA, K, CL, CO2, GLUCOSE, Medica l Branch BUN, CREATININE, CA) LIPID PANEL ([id number])(TOTAL 2020-03-23 05:55:00 Tereza Cano [facility] TRIGLYCERIDES, HDL) PROTHROMBIN TIME / INR 2020-03-23 02:55:00 Sallie Eckert [facility] ACTIVATED PARTIAL 2020-03-23 02:55:00 [facility] 2 VW 2020-03-23 01:52:37 Singletary, [facility] CORONAVIRUS COVID-19 2020-03-23 00:50:00 Estebna Singletary [facility] FERRITIN SERUM 2020-03-22 23:36:00 [facility] 2020-03-22 23:36:00 Danielle [facility] COMP. METABOLIC PANEL 2020-03-22 23:36:00 Danielle [facility] ([id number] IRON PANEL 2020-03-22 23:36:00 Jerome [facility] CBC WITH DIFFERENTIAL 2020-03-22 23:36:00 Danielle [facility] N-TERMINAL PRO-BNP 2020-03-22 23:36:00 Esteban Singletary [facility] EKG-12 LEAD 2020-03-22 23:08:53 [facility] 2020-03-22 23:08:15 Danielle [facility] XR CHEST 1 VW 2020-03-21 20:42:35 Myles Harry [facility] LACTIC ACID WHOLE BLOOD 2020-03-21 20:38:00 Myles Harry [facility] LIPASE 2020-03-21 20:19:00 Myles Harry [facility] TROPONIN I 2020-03-21 20:19:00 Myles Harry [facility] COMP. METABOLIC PANEL 2020-03-21 20:19:00 Myles Harry [facility] ([id number]) [facility] PROTHROMBIN TIME / INR 2020-03-21 20:19:00 Myles Harry [facility] N-TERMINAL PRO-BNP 2020-03-21 20:19:00 Myles Harry [facility] CORONAVIRUS COVID-19 2020-03-21 20:19:[address] [facility] EKG-12 LEAD 2020-03-21 20:11:28 Myles Harry [facility] POCT GLUCOSE (AUTOMATED) 2020-03-07 20:56:00 EdconsueloSarah [employer] [facility] [place] [facility] POCT GLUCOSE (AUTOMATED) 2020-03-07 15:34:00 EdconsueloSarah [employer] [facility] [place] [facility] POCT GLUCOSE (AUTOMATED) 2020-03-07 12:56:00 Julio CesarSarah [facility] URIC ACID 2020-03-07 10:14:00 Holland Garza [facility] TROPONIN I 2020-03-07 10:14:00 Steven [facility] BASIC METABOLIC PANEL 2020-03-07 10:14:00 [facility] (NA, K, CL, CO2, GLUCOSE, Medica l Branch BUN, CREATININE, CA) CBC WITH DIFFERENTIAL 2020-03-07 10:14:00 Julio Cesar [facility] N-TERMINAL PRO-BNP 2020-03-07 10:14:00 Steven [facility] POCT GLUCOSE (AUTOMATED) 2020-03-06 21:16:00 [facility] POCT GLUCOSE (AUTOMATED) 2020-03-06 16:10:00 Julio Cesar [facility] POCT GLUCOSE (AUTOMATED) 2020-03-06 12:38:00 Edconsuelo [facility] TROPONIN I 2020-03-06 08:51:00 Steven [facility] BASIC METABOLIC PANEL 2020-03-06 08:51:00 Edionrosalio [facility] (NA, K, CL, CO2, GLUCOSE, Medica l Branch BUN, CREATININE, CA) CBC WITH DIFFERENTIAL 2020-03-06 08:51:00 Edconsuelo [facility] POCT GLUCOSE (AUTOMATED) 2020-03-06 01:16:00 Julio Cesar [facility] TROPONIN I 2020-03-05 23:25:00 Julio Cesar [facility] POCT GLUCOSE (AUTOMATED) 2020-03-05 21:14:00 Edionrosalio [facility] POCT GLUCOSE (AUTOMATED) 2020-03-05 16:39:00 [facility] POCT GLUCOSE (AUTOMATED) 2020-03-05 12:47:00 Julio Cesar [facility] TROPONIN I 2020-03-05 09:50:00 [facility] system[facility] [facility] BASIC METABOLIC PANEL 2020-03-05 09:50:00 [facility] (NA, K, CL, CO2, GLUCOSE, Medica l Branch BUN, CREATININE, CA) CBC WITH DIFFERENTIAL 2020-03-05 09:50:00 [facility] EKG-12 LEAD 2020-03-05 00:36:54 [facility] 2020-03-05 00:31:03 Renan [facility] CORONAVIRUS COVID-19 2020-03-05 00:03:00 Charanjit Heck [facility] XR CHEST 1 VW 2020-03-04 23:58:59 Charanjit Heck [facility] LIPASE 2020-03-04 23:29:00 Charanjit Heck [facility] TROPONIN I 2020-03-04 23:29:00 [facility] HEPATIC FUNCTION PANEL 2020-03-04 23:29:00 Charanjit Heck [facility] ([id number]) (ALB,T.PRO,BILI [facility] T,BU/BC,ALT,AST,ALK PHOS) BASIC METABOLIC PANEL 2020-03-04 23:29:00 Charanjit Heck [facility] (NA, K, CL, CO2, GLUCOSE, Medica l Branch BUN, CREATININE, CA) CBC WITH DIFFERENTIAL 2020-03-04 23:29:[address] [facility] PROTHROMBIN TIME / INR 2020-03-04 23:29:00 Charanjit Heck [facility] ACTIVATED PARTIAL 2020-03-04 23:29:00 [facility] N-TERMINAL PRO-BNP 2020-03-04 23:29:00 Charanjit Heck [facility] EKG-12 LEAD 2020-03-04 23:15:42 Umang [facility] EKG-12 LEAD 2020-03-04 23:10:23 Umang [facility] EMERGENCY DEPARTMENT 2020-03-04 05:01:00 Doctor Unassigned, [facility] DOCUMENTS [facility] POCT GLUCOSE (AUTOMATED) 2020-03-02 15:52:00 Lulu Harris [facility] POCT GLUCOSE (AUTOMATED) 2020-03-02 12:39:00 Lulu Harris [facility] MAGNESIUM 2020-03-02 08:57:00 Carolyn [facility] BASIC METABOLIC PANEL 2020-03-02 08:57:00 Ivory Leon [facility] (NA, K, CL, CO2, GLUCOSE, Medica l Branch BUN, CREATININE, CA) N-TERMINAL PRO-BNP 2020-03-02 08:57:00 Carolyn alek [facility] POCT GLUCOSE (AUTOMATED) 2020-03-01 20:39:00 Lulu Harris [facility] MAGNESIUM 2020-03-01 08:43:00 Lulu Harris [facility] TROPONIN I 2020-03-01 08:43:00 Carolyn [facility] BASIC METABOLIC PANEL 2020-03-01 08:43:00 Lulu Harris [facility] (NA, K, CL, CO2, GLUCOSE, Medica l Branch BUN, CREATININE, CA) CBC WITH DIFFERENTIAL 2020-03-01 08:43:[address] [facility] N-TERMINAL PRO-BNP 2020-03-01 08:43:00 Carolyn alek [facility] VITAMIN B12, LEVEL 2020-03-01 03:49:00 Carolyn alek [facility] FOLATE 2020-03-01 03:49:00 Carolyn alek [facility] SEDIMENTATION RATE 2020-03-01 03:49:00 Carolyn alek [facility] POCT GLUCOSE (AUTOMATED) 2020-03-01 03:39:00 Lulu Harris [facility] PHOSPHORUS 2020-03-01 02:28:00 Lulu Harris [facility] URIC ACID 2020-03-01 02:28:00 Carolyn [facility] TROPONIN I 2020-03-01 02:28:00 Carolyn [facility] HEPATIC FUNCTION PANEL 2020-03-01 02:28:00 Ivory Leon [facility] ([id number]) (ALB,T.PRO,BILI [facility] T,BU/BC,ALT,AST,ALK PHOS) PROTHROMBIN TIME / INR 2020-03-01 02:28:00 Ivory Leon [facility] N-TERMINAL PRO-BNP 2020-03-01 02:28:00 Lulu Harris [facility] PROCALCITONIN 2020-03-01 02:28:00 Carolyn [facility] EKG-12 LEAD 2020-03-01 01:54:29 Carolyn [facility] EKG-12 LEAD 2020-02-29 23:16:21 Bobo Urrutia [facility] XR CHEST 1 VW COVID 2020-02-29 23:14:25 Bobo Urrutia [facility] EKG-12 LEAD 2020-02-29 23:13:50 Bobo Urrutia [facility] LACTIC ACID WHOLE BLOOD 2020-02-29 22:21:00 Bobo Urrutia [facility] CORONAVIRUS COVID-19 2020-02-29 22:20:00 Bobo Urrutia [facility] CREATINE KINASE 2020-02-29 22:14:00 Carolyn alek [facility] URIC ACID 2020-02-29 22:14:00 Carolyn [facility] LIPASE 2020-02-29 22:14:00 Bobo Urrutia [facility] MAGNESIUM 2020-02-29 22:14:00 Carolyn [facility] TROPONIN I 2020-02-29 22:14:00 Bobo Urrutia [facility] THYROID STIMULATING 2020-02-29 22:14:00 Ivory Leon [facility] HORMONE [facility] BASIC METABOLIC PANEL 2020-02-29 22:14:00 Bobo Urrutia [facility] (NA, K, CL, CO2, GLUCOSE, Medica l Branch BUN, CREATININE, CA) CBC WITH DIFFERENTIAL 2020-02-29 22:14:[address] [facility] GLYCOSYLATED HEMOGLOBIN 2020-02-29 22:14:00 Carolyn [facility] (A1C) [facility] N-TERMINAL PRO-BNP 2020-02-29 22:14:00 Carolyn alek [facility] EKG-12 LEAD 2020-02-29 21:59:12 [facility] 2020-02-29 21:48:49 [facility] 2020-02-29 05:01:00 Doctor Unassigned, [facility] DOCUMENTS [facility] POCT GLUCOSE (AUTOMATED) 2020-01-17 18:15:00 Julio Cesar [facility] TROPONIN I 2020-01-17 16:31:00 Julio Cesar [facility] ACTIVATED PARTIAL 2020-01-17 16:31:00 Carolyn [facility] POCT GLUCOSE (AUTOMATED) 2020-01-17 11:56:00 [facility] TROPONIN I 2020-01-17 09:52:00 Julio Cesar [facility] BASIC METABOLIC PANEL 2020-01-17 09:52:00 Julio Cesar [facility] (NA, K, CL, CO2, GLUCOSE, Medica l Branch BUN, CREATININE, CA) CBC WITH DIFFERENTIAL 2020-01-17 09:52:00 Julio Cesar [facility] ACTIVATED PARTIAL 2020-01-17 09:52:00 Julio Cesar [facility] POCT GLUCOSE (AUTOMATED) 2020-01-16 23:59:00 Julio Cesar [facility] EKG-12 LEAD 2020-01-16 22:15:50 [facility] 2020-01-16 20:04:00 [facility] PARTIAL 2020-01-16 20:04:[address] [facility] POCT GLUCOSE (AUTOMATED) 2020-01-16 17:05:00 [facility] PO[facility]UCOSE (AUTOMATED) 2020-01-16 13:38:00 [facility] TROPONIN I 2020-01-16 11:11:00 [facility] LIPID PANEL ([id number])(TOTAL 2020-01-16 11:11:00 [facility] systemrosalio[facility] TRIGLYCERIDES, HDL) ACTIVATED PARTIAL 2020-01-16 11:11:00 [facility] 2020-01-16 05:48:18 Umang [facility] XR CHEST 1 VW 2020-01-16 04:46:44 Umang [facility] TROPONIN I 2020-01-16 04:38:00 Umang Charanjit [facility] HEPATIC FUNCTION PANEL 2020-01-16 04:38:00 Charanjit Heck [facility] ([id number]) (ALB,T.PRO,BILI Medical Branch T,BU/BC,ALT,AST,ALK PHOS) BASIC METABOLIC PANEL 2020-01-16 04:38:00 Charanjit Heck [facility] (NA, K, CL, CO2, GLUCOSE, Medica l Branch BUN, CREATININE, CA) CBC WITH DIFFERENTIAL 2020-01-16 04:38:[address] [facility] GLYCOSYLATED HEMOGLOBIN 2020-01-16 04:38:00 [facility] PROTHROMBIN TIME / INR 2020-01-16 04:38:00 Charanjit Heck [facility] ACTIVATED PARTIAL 2020-01-16 04:38:00 Charanjit Heck [facility] THRLAS [facility] N-TERMINAL PRO-BNP 2020-01-16 04:38:00 Charanjit Heck [facility] EKG-12 LEAD 2020-01-16 04:37:48 Charanjit Heck [facility] EKG-12 LEAD 2020-01-16 04:35:35 Charanjit Heck [facility] AUTHORIZATION FOR RELEASE 2019-07-12 05:01:00 Doctor Unassigned, [facility] Encounters Start End Encounter Admission Attending Care Care Encounter Source Date/Time Date/Time Type Type Clinicians Facility Department ID 2022-03-06 Outpatient [facility] [id number] ID [id number] [facility] 2021-12-16 [id number] 11:30:00 Jim [facility] 2021-12-16 Outpatient STLM [facility] [id number] Common 09:19:01 [facility] 2021-12-11 Outpatient Millender, STLMLC [facility] [id number] Common 14:38:21 Anneliese [facility] 2021-12-11 Outpatient Millender, STLMLC [facility] [id number] Common 11:50:18 Anneliese [facility] 2021-09-16 Emergency [facility] [id number] Univers 00:23:34 ity [facility] 2021-09-13 Emergency [facility] [id number] Univers [facility]:42[facility]13 Emergency [facility] [id number] Univers 05:40:48 [facility] 2022-03-05 2022-03-10 Inpatient Abiola MURGUIA, [facility] CAR [id number] [facility] 06:12:00 22:30:00 BRODIE 2022-03-01 2022-03-01 Emergency X LAUREN IDCESAR ERT [id number] Univers 06:52:00 12:04:00 ANGELIKA leon [facility] 2022-03-01 2022-03-01 Emergency Lauren IDCESAR [id number] Univers 06:52:00 12:04:00 Angelika RAMSEY [id number] ity [facility] [place] [phone] [facility] 084 Branch 2021-12-25 2021-12-25 Inpatient ATTAR, [facility] [id number] [place] 00:00:00 00:00:00 [address] 2021-12-19 2021-12-25 Inpatient LAUREN, [facility] [id number] [place] 00:00:00 00:00:00 JAYSON [address] 2021-12-24 2021-12-24 ambulatory STLMLC STL[facility]C [id number] Common 00:00:00 00:00:00 [facility] 2021-12-20 2021-12-20 Inpatient ATTAR, [facility] [id number] 38 [place] 00:00:00 00:00:00 M[address]AMMED [address] 2021-12-17 2021-12-17 ambulatory STLMLC STLMLC [id number] Common 00:00:00 00:00:00 [facility] 2021-12-16 2021-12-16 ambulatory STLMLC STLMLC [id number] Common 00:00:00 00:00:00 [facility] 2021-11-19 2021-11-19 Orders Doctor ROBERT [id number] Univers 00:00:00 00:00:00 Only Unassigned, ASHLEIGH [id number] ity [facility] 4.2.7.2.686 [place] [phone] [facility] 009 Branch 2021-11-04 2021-11-04 Transition SHAREE Maria 1.2.840.114 [id number] Univers 00:00:00 00:00:00 of Care Supa GREWAL [id number] [place] [phone] [facility] 403 Branch 2021-10-30 2021-11-02 In[facility] [id number] Univers 19:14:00 18:15:00 AIDA ity of [facility] 2021-10-30 2021-11-02 Hospital Martha Drake [facility] 1.2.840. 114 [id number] Univers 19:14:00 18:15:00 Encounter Aida Shah [id number] ity of [place] 4.2.7.2.686 [facility] [id number] [facility] 081 Branch 2021-05-17 2021-05-17 Letter PcpROBERT 1.2.840.114 [id number] Univers 00:00:00 00:00:00 (Out) Patient ASHLEIGH 350.1.13.10 it y of [facility] 4.2.7.2.686 [place] Have A [phone] [facility] 019 Branch 2021-04-25 2021-04-25 Emergency Cece, TRAUMA [id number] Univers 10:43:00 17:38:00 [facility] 350.1.13.10 i ty of [facility] 4.2.7.2.686 [facility] [phone] [facility] 014 Branch 2020-06-26 2020-06-26 Emergency [facility] 1.2.009.130 [id number] 03:50:00 06:45:00 Martha Ramsey 350.1.13.10 [place] 4.2.7.2.686 [place] [phone] [id number] 2020-06-26 2020-06-26 [facility] [id number] [id number] Univers 03:50:00 06:45:00 Martha Ramsey 350.1.13.10 ity of [place] 4.2.7.2.686 [facility] [id number] [facility] 084 Branch 2020-05-24 2020-05-24 NEA [facility] [id number] 06:40:47 10:54:00 Charanjit Ramsey 350.1.13.10 [place] 4.2.7.2.686 [place] [id number] 08 2020-05-24 2020-05-24 Emergency [facility] 1.2.380.467 [id number] Univers 06:40:47 10:54:00 Charanjit Ramsey 350.1.13.10 i ty [facility] [place] [phone] [address] 2020-03-29 2020-03-29 Letter Jamel Flores 1.2.840.114 [id number] 00:00:00 00:00:00 (Out) T Ashleigh 350.1.13.10 [facility] 4.2.7.2.686 [id number] [facility] 2020-03-29 2020-03-29 Letter Jamel Flores 1.2.840.114 [id number] Univers 00:00:00 00:00:00 (Out) T Fulton 350.1.13.10 it y of [facility] 4.2.7.2.686 [place] [phone] [address] 2020-03-26 2020-03-26 Transition Sharee George 1.2.840.114 [id number] 00:00:00 00:00:00 of Care Sherrell Grewal 350.1.13.10 [place] 4.2.7.2.686 [id number] [facility] 2020-03-26 2020-03-26 Transition Sharee George 1.2.840.114 [id number] Univers 00:00:00 00:00:00 of Care Sherrell Grewal 350.1.13.10 it y of [place] 4[place]2.7.2.686 [place] [phone] [address] 2020-03-22 2020-03-23 Emergency Sallie Eckert 1.2.840. 114 [id number] Univers 18:02:47 21:55:00 Jamel Flores 350.1.13.10 ity [facility] 4.2.7.2.686 [place] [phone] [address] 2020-03-22 2020-03-23 Outpatient X [facility] [id number] [facility] 18:02:47 21:55:00 ity [facility] 2020-03-21 2020-03-21 Emergency [facility] 1.2.840.114 [id number] Univers 15:02:08 17:16:00 Myles Ramsey 350.1.13.10 i ty of [place] 4.2.7.2.686 [facility] [id number] [address] 2020-03-21 2020-03-21 Emergency X KAMRYN, [facility] ERT [id number] Univers 15:02:08 17:16:00 MYLES ity of [facility] 2020-03-13 2020-03-13 Outpatient Raju_P MMG MMG [id number] [place] 05:24:00 05:24:00 [facility] 2020-03-08 2020-03-08 Transition Sharee Cool 1.2.840.114 [id number] Univers 00:00:00 00:00:00 of Care Prema Grewal 350.1.13.10 i ty of [place] [phone] [address] 2020-03-04 2020-03-07 [facility] Charanjit Heck [facility] 1.2.840.1 14 [id number] Univers 18:01:05 18:00:00 Encounter Sarah Adorno 350.1.13.10 ity of [place] 4.2.7.2.686 [facility] [id number] [address] 2020-03-04 2020-03-07 Inpatient X JULIO CESAR [facility] ZEFERINO [id number] Univers 18:01:05 18:00:00 SARAH leon [facility] 2020-03-03 2020-03-03 Transition Sharee Silva 1.2.840.114 [id number] Univers 00:00:00 00:00:00 of Care Isatu Twan 350.1.13.10 it y of [place] [id number] [address] 2020-02-29 2020-03-02 [facility] Bobo Urrutia [facility] 1.2.840.11 [id number] Univers 16:53:09 12:18:00 Encounter Lulu Harris 350.1.13.10 ity of [place] 4[place].2.[place] [phone] [place] [id number] [place] 2020-02-29 2020-03-02 Inpatient X STEVEN [facility] ZEFERINO [id number] Univers 16:53:09 12:18:00 LULU leon [facility] 2020-02-15 2020-02-15 [facility] [id number] Univers 11:30:00 11:30:00 ROSEMARY [facility] 2020-02-15 2020-02-15 [facility] 1.2.840.114 [id number] Univers 08:13:42 08:43:42 ne Visit Rosemary Ramsey 350.1.13.10 ity of [place].2.[place] [phone] [place] [address] 2020-01-18 2020-01-18 Transition Sharee Harvey 1.2.840.114 [id number] Univers 00:00:00 00:00:00 of Care Ana M Grewal 350.1.13.10 it y of [place] 4[place]2.[place].2.[place] [phone] [facility] 403 Branch 2020-01-15 2020-01-17 [facility] 1.2.840.1 14 [id number] Univers 22:33:37 16:58:00 Encounter Sarah Adorno 350.1.13.10 ity of [place] 4[place]2.7.2.[place] [phone] [place] 712541 [place] 2020-01-15 2020-01-17 Outpatient X JULIO CESAR [facility] ZEFERINO [id number] Univers 22:33:37 16:58:00 SARAH leon [facility] 2019-10-07 2019-10-07 [facility] [id number] Common 10:48:00 10:48:00 [facility] [address] [facility] 2019-10-05 2019-10-05 [facility] [id number] Common 16:06:00 16:06:00 [facility] 2019-07-27 2019-07-27 Refill Chava IDCESAR 1.2.840.114 [id number] Univers 00:00:00 00:00:00 Rosemary Ramsey 350.1.13.10 i ty of [place] [phone] [place] dical [facility] 220 [address] [facility] 2019-07-12 2019-07-12 [facility] [id number] Common 16:24:00 16:24:00 [facility] 2019-07-12 2019-07-12 Orders Doctor ROBERT 1.2.840.114 [id number] Univers 00:00:00 00:00:00 Only Unassigned, ASHLEIGH 350.1.13.10 ity of [place] [facility] 4.2.7.2.686 [place] [phone] [facility] 009 Branch 2019-07-06 2019-07-06 Out[facility] [id number] Common 14:00:00 14:00:00 [facility] Results Test Description Test Time Test Comments Results Result Comments Source SARS-CoV-2 (COVID-19) RNA [Presence] in Respiratory sp ecimen by 2021-12-20 07:04:48 ERI with probe detection Test Item Value Reference Range Interpretation Comme nts SARS-CoV-2 (COVID-19) RNA [Presence] in Respiratory Not detected No t-Detected specimen by ERI with probe detection (test code = 33545-6) 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 (test code = 36376-5) Whether the patient has symptoms related to condition of interest (test code = 57087-7) Patient was hospitalized because of this condition (test code = 15000-7) Whether the patient was admitted to intensive care unit (ICU) for condition of interest (test code = 71510-3) Whether patient resides in a congregate care setting (test code = 59204-4) POCT GLUCOSE (AUTOMATED)2021-11-02 22:57:12 Test Item Value Reference Range Interpretation Comments POCT GLU (test code = 1722027788) 224 mg/dL 70-110 H Lab Interpretation (test code = Abnormal 28511-9) [facility] [id number] 22:37:57 Test Item Value Reference Range Interpretation Comments Lab Interpretation (test code = Abnormal 24214-8) [facility] GLUCOSE (AUTOMATED)2021-11-02 17:43:02 Test Item Value Reference Range Interpretation Comments POCT GLU (test code = 3003006668) 264 mg/dL 70-110 H Lab Interpretation (test code = Abnormal 56811-9) [facility] [id number] 15:07:47 Test Item Value Reference Interpretation Comments Range TROPONIN I (test 0.064 ng/mL See_Comment H [Automated code = 1007423810) message] The system which generated this result [...] biotin. Lab Interpretation Abnormal (test code = 99811-8) [facility] [id number] 15:04:26 Test Item Value Reference Range Interpretation Comments NT-proBNP (test code 800 pg/mL See_Comment H [Autom ated = 0849122160) message] The system which generated this result transmitted reference range : <=450. The reference range was not used to interpret this result as normal/abnormal . ALYSSA (test code = ALYSSA) Biotin has been reported to cause a negative bias, interpret results relative to patient's use of biotin. Lab Interpretation Abnormal (test code = 52851-4) [facility] GLUCOSE (AUTOMATED)2021-11-02 13:36:38 Test Item Value Reference Range Interpretation Comments POCT GLU (test code = 2358158251) 185 mg/dL 70-110 H Lab Interpretation (test code = Abnormal 33288-2) [facility] METABOLIC PANEL (NA, K, CL, CO2, GLUCOSE, BUN, CREATININE, CA)2021-11-02 10:26:43 Test Item Value Reference Range Interpretation Comments NA (test code = 136 mmol/L 135-145 9417938910) K (test code = 4.0 mmol/L 3.5-5.0 8906329596) CL (test code = 99 mmol/L 98-108 5990189804) CO2 TOTAL (test code = 27 mmol/L 23-31 9331570436) AGAP (test code = 2-16 2466713047) BUN (test code = 30 mg/dL 7-23 H 4955039214) GLUCOSE (test code = 165 mg/dL 70-110 H 3243145059) CREATININE (test code = 1.42 mg/dL 0.60-1.25 H 6064164418) CALCIUM (test code = 9.5 mg/dL 8.6-10.6 1713786464) eGFR (test code = mL/min/1.73m2 3479054255) ALYSSA (test code = ALYSSA) Association of [...] tests). Lab Interpretation Abnormal (test code = 96354-6) [facility] WITH [id number] 10:01:58 Test Item Value Reference Range Interpretation Comments WBC (test code = See_Comment [Automated 3390-2) message] The sy stem which generated this [...] RDW-SD (test code = 39.8 fL 38.5-51.6 83145-7) RDW-CV (test code = 11.5 % 12.1-15.4 L 788-0) PLT (test code = See_Comment [Automated 777-3) message] The sy stem which generated this result transmitted reference range : 150 - 328 10*3/ ?L. The reference r corey was not used to interpret this result as normal/abnormal . MPV (test code = 10.5 fL 9.8-13.0 41518-5) NRBC/100 WBC (test See_Comment [Automat ed code = 8465352117) message] The system which generated this result transmitted reference range : 0.0 - 10.0 /100 WBCs. The refer ence range was not u sed to interpret th is result as normal/abnormal . NRBC x10^3 (test code <0.01 See_Comment [Auto mated = 3924725758) message] The s ystem which generated this result transmitted reference range : 10*3/?L. The reference range was not used to interpret this result as normal/abnormal . GRAN MAT (NEUT) % 59.3 % (test code = 770-8) IMM GRAN % (test code 0.30 % = 7030294077) LYMPH % (test code = 25.0 % 736-9) MONO % (test code = 10.7 % 5905-5) EOS % (test code = 4.1 % 713-8) BASO % (test code = 0.6 % 706-2) GRAN MAT x10^3(ANC) 4.19 10*3/uL 1.99-6.95 (test code = 0341412541) IMM GRAN x10^3 (test <0.03 0.00-0.06 code = 6720616048) LYMPH x10^3 (test code 1.77 10*3/uL 1.09-3.23 = 731-0) MONO x10^3 (test code 0.76 10*3/uL 0.36-1.02 = 742-7) EOS x10^3 (test code = 0.29 10*3/uL 0.06-0.53 711-2) BASO x10^3 (test code 0.04 10*3/uL 0.01-0.09 = 704-7) Lab Interpretation Abnormal (test code = 14496-7) [facility] GLUCOSE (AUTOMATED)2021-11-02 01:29:56 Test Item Value Reference Range Interpretation Comments POCT GLU (test code = 7581304216) 167 mg/dL 70-110 H Lab Interpretation (test code = Abnormal 06215-0) [facility] GLUCOSE (AUTOMATED)2021-11-01 17:40:19 Test Item Value Reference Range Interpretation Comments POCT GLU (test code = 5268827425) 193 mg/dL 70-110 H Lab Interpretation (test code = Abnormal 86097-8) [facility] GLUCOSE (AUTOMATED)2021-11-01 13:44:28 Test Item Value Reference Range Interpretation Comments POCT GLU (test code = 5467342484) 200 mg/dL 70-110 H Lab Interpretation (test code = Abnormal 41719-8) [facility] GLUCOSE (AUTOMATED)2021-11-01 01:38:43 Test Item Value Reference Range Interpretation Comments POCT GLU (test code = 1496164468) 177 mg/dL 70-110 H Lab Interpretation (test code = Abnormal 54104-7) [facility] GLUCOSE (AUTOMATED)2021-10-31 22:39:43 Test Item Value Reference Range Interpretation Comments POCT GLU (test code = 8874311098) 174 mg/dL 70-110 H Lab Interpretation (test code = Abnormal 78907-0) [facility] GLUCOSE (AUTOMATED)2021-10-31 17:40:22 Test Item Value Reference Range Interpretation Comments POCT GLU (test code = 4791967698) 224 mg/dL 70-110 H Lab Interpretation (test code = Abnormal 32967-3) [facility] [id number] 17:14:58 Test Item Value Reference Interpretation Comments Range TROPONIN I (test 0.080 ng/mL See_Comment H [Automated code = 2085347545) message] The system which generated this result [...] biotin. Lab Interpretation Abnormal (test code = 27915-8) [facility] CenterN-TERMINAL [id number] 15:14:03 Test Item Value Reference Range Interpretation Comments NT-proBNP (test code 474 pg/mL See_Comment H [Autom ated = 0563731727) message] The system which generated this result transmitted reference range : <=450. The reference range was not used to interpret this result as normal/abnormal . ALYSSA (test code = ALYSSA) Biotin has been reported to cause a negative bias, interpret results relative to patient's use of biotin. Lab Interpretation Abnormal (test code = 11384-7) [facility] (97129)(TOTAL CHOLESTEROL, TRIGLYCERIDES, HDL)2021-10-31 15:05:19 Test Item Value Reference Range Interpretation Comments CHOL (test code = 101 mg/dL 120-200 L 1745668771) HDL (test code = 36 mg/dL >40 L 3049312219) HDLC RATIO (test code = See_Comment [Au tomated message] 2057679549) The system [employer] generated this result transmit diamante reference range : <=5.0. The refe rence range was not u sed to interpret th is result as normal/abnormal . TRIG (test code = 143 mg/dL 30-170 1765659892) LDL CHOL (test code = 36 mg/dL See_Comment [Auto mated message] 23438-7) The system [employer] generated this result transmit diamante reference range : <=160. The refe rence range was not u sed to interpret th is result as normal/abnormal . VLDL (test code = 29 mg/dL 5-60 7291468411) Lab Interpretation (test Abnormal code = 75906-4) [facility]PO[facility] ([facility]ATED)2021-10-31 13:44:00 Test Item Value Reference Range Interpretation Comments POCT GLU (test code = 0588774074) 150 mg/dL 70-110 H Lab Interpretation (test code = Abnormal 47022-5) [facility] CenterCBC with [id number] 11:13:14 Test Item Value Reference Range Interpretation Comments WBC (test code = See_Comment [Automated 7190-2) message] The sy stem which generated this [...] RDW-SD (test code = 39.9 fL 38.5-51.6 92552-7) RDW-CV (test code = 11.8 % 12.1-15.4 L 788-0) PLT (test code = See_Comment [Automated 777-3) message] The sy stem which generated this result transmitted reference range : 150 - 328 10*3/ ?L. The reference r corey was not used to interpret this result as normal/abnormal . MPV (test code = 11.0 fL 9.8-13.0 45889-7) NRBC/100 WBC (test See_Comment [Automat ed code = 3167864093) message] The system which generated this result transmitted reference range : 0.0 - 10.0 /100 WBCs. The refer ence range was not u sed to interpret th is result as normal/abnormal . NRBC x10^3 (test code <0.01 See_Comment [Auto mated = 2755658156) message] The s ystem which generated this result transmitted reference range : 10*3/?L. The reference range was not used to interpret this result as normal/abnormal . GRAN MAT (NEUT) % 64.3 % (test code = 770-8) IMM GRAN % (test code 0.30 % = 6180243841) LYMPH % (test code = 21.7 % 736-9) MONO % (test code = 10.0 % 5905-5) EOS % (test code = 3.1 % 713-8) BASO % (test code = 0.6 % 706-2) GRAN MAT x10^3(ANC) 4.35 10*3/uL 1.99-6.95 (test code = 6479301759) IMM GRAN x10^3 (test <0.03 0.00-0.06 code = 5491772470) LYMPH x10^3 (test code 1.47 10*3/uL 1.09-3.23 = 731-0) MONO x10^3 (test code 0.68 10*3/uL 0.36-1.02 = 742-7) EOS x10^3 (test code = 0.21 10*3/uL 0.06-0.53 711-2) BASO x10^3 (test code 0.04 10*3/uL 0.01-0.09 = 704-7) Lab Interpretation Abnormal (test code = 11223-7) [id number] 11:09:53 Test Item Value Reference Interpretation Comments Range TROPONIN I (test 0.101 ng/mL See_Comment H [Automated code = 4000283913) message] The system which generated this result [...] biotin. Lab Interpretation Abnormal (test code = 04885-8) [facility] Metabolic Panel (NA, K, CL, CO2, GLUCOSE, BUN, CREATININE, CA)2021-10-31 10:59:31 Test Item Value Reference Range Interpretation Comments NA (test code = 139 mmol/L 135-145 8731831267) K (test code = 4.1 mmol/L 3.5-5.0 1301431148) CL (test code = 103 mmol/L 98-108 6996872807) CO2 TOTAL (test code = 28 mmol/L 23-31 3838491986) AGAP (test code = 2-16 3028464955) BUN (test code = 43 mg/dL 7-23 H 3006089879) GLUCOSE (test code = 165 mg/dL 70-110 H 8397352653) CREATININE (test code = 1.68 mg/dL 0.60-1.25 H 7099648893) CALCIUM (test code = 9.6 mg/dL 8.6-10.6 4212057434) eGFR (test code = mL/min/1.73m2 8597202514) ALYSSA (test code = ALYSSA) Association of [...] tests). Lab Interpretation Abnormal (test code = 11213-0) [facility] CenterGlycosylated Hemoglobin (A1C)2021-10-31 09:13:40 Test Item Value Reference Range Interpretation Comments HGB A1C (test code = 6.8 % 4.0-5.7 H 4548-4) ALYSSA (test code = ALYSSA) Reference RangesNormal: <5.7%Prediabetes: 5.7 - 6.4%Diabetes: > 6.5% Lab Interpretation (test Abnormal code = 17557-3) [facility] [id number] 06:48:18 Test Item Value Reference Interpretation Comments Range TROPONIN I (test 0.082 ng/mL See_Comment H [Automated code = 7647122843) message] The system which generated this result [...] biotin. Lab Interpretation Abnormal (test code = 95209-6) [facility] [id number] 02:09:48 Test Item Value Reference Interpretation Comments Range TROPONIN I (test 0.067 ng/mL See_Comment H [Automated code = 0966138828) message] The system which generated this result [...] biotin. Lab Interpretation Abnormal (test code = 34916-1) [facility] CenterN-[facility]MINAL [id number] 02:06:31 Test Item Value Reference Range Interpretation Comments NT-proBNP (test code 318 pg/mL See_Comment [Autom ated = 9354251449) message] The system which generated this result transmitted reference range : <=450. The reference range was not used to interpret this result as normal/abnormal . ALYSSA (test code = ALYSSA) Biotin has been reported to cause a negative bias, interpret results relative to patient's use of biotin. Lab Interpretation Normal (test code = 89782-4) [facility] CenterCOMP. METABOLIC PANEL (03945)2021-10-31 01:58:28 Test Item Value Reference Range Interpretation Comments NA (test code = 137 mmol/L 135-145 3917357962) K (test code = 4.1 mmol/L 3.5-5.0 4718143628) CL (test code = 101 mmol/L 98-108 3370918315) CO2 TOTAL (test code = 26 mmol/L 23-31 3082076798) AGAP (test code = 2-16 9422422211) BUN (test code = 46 mg/dL 7-23 H 6218278133) GLUCOSE (test code = 213 mg/dL 70-110 H 1724770520) CREATININE (test code = 1.96 mg/dL 0.60-1.25 H 7506196276) TOTAL BILI (test code = 0.9 mg/dL 0.1-1.5 7145960772) CALCIUM (test code = 9.7 mg/dL 8.6-10.6 0365976095) T PROTEIN (test code = 7.0 g/dL 6.3-8.2 7948258977) ALBUMIN (test code = 4.3 g/dL 3.5-5.0 1985443181) ALK PHOS (test code = 58 U/L 34-122 3211564775) ALTv (test code = 20 U/L 5-50 1742-6) AST(SGOT) (test code = 27 U/L 13-40 2259165145) eGFR (test code = mL/min/1.73m2 5514596460) ALYSSA (test code = ALYSSA) Association of [...] tests). Lab Interpretation Abnormal (test code = 52350-7) [facility] CenterLIPASE, [id number] 01:57:48 Test Item Value Reference Range Interpretation Comments LIPASE (test code = 7830785521) 330 U/L 0-220 H Lab Interpretation (test code = Abnormal 88711-5) [facility] CenteraPTT2021-12-16 01:55:04 Test Item Value Reference Range Interpretation Comments APTT Patient (test See_Comment [Automat ed code = 3173-2) message] The system which generated this result transmitted reference range : 23 - 38 Seconds . The reference range was not used to interpr et this result as normal/abnormal . ALYSSA (test code = ALYSSA) The [facility] patient population mean normal value for aPTT is 30 seconds. Lab Interpretation Normal (test code = 38767-1) [facility] CenterPROTHROMBIN TIME / [id number] 01:53:08 Test Item Value Reference Range Interpretation [...] tions. Lab Interpretation (test Normal code = 63178-3) [facility] CenterCB WITH [id number] 01:45:44 Test Item Value Reference Range Interpretation [...] RDW-SD (test code = 39.1 fL 38.5-51.6 31587-5) RDW-CV (test code = 11.6 % 12.1-15.4 L 788-0) PLT (test code = See_Comment [Automated 777-3) message] The sy stem which generated this result transmitted reference range : 150 - 328 10*3/ ?L. The reference r corey was not used to interpret this result as normal/abnormal . MPV (test code = 10.4 fL 9.8-13.0 49493-8) NRBC/100 WBC (test See_Comment [Automat ed code = 0092027380) message] The system which generated this result transmitted reference range : 0.0 - 10.0 /100 WBCs. The refer ence range was not u sed to interpret th is result as normal/abnormal . NRBC x10^3 (test code <0.01 See_Comment [Auto mated = 7037546376) message] The s ystem which generated this result transmitted reference range : 10*3/?L. The reference range was not used to interpret this result as normal/abnormal . GRAN MAT (NEUT) % 62.1 % (test code = 770-8) IMM GRAN % (test code 0.30 % = 9295818797) LYMPH % (test code = 23.4 % 736-9) MONO % (test code = 10.8 % 5905-5) EOS % (test code = 2.9 % 713-8) BASO % (test code = 0.5 % 706-2) GRAN MAT x10^3(ANC) 4.14 10*3/uL 1.99-6.95 (test code = 4697432325) IMM GRAN x10^3 (test <0.03 0.00-0.06 code = 7705340719) LYMPH x10^3 (test code 1.56 10*3/uL 1.09-3.23 = 731-0) MONO x10^3 (test code 0.72 10*3/uL 0.36-1.02 = 742-7) EOS x10^3 (test code = 0.19 10*3/uL 0.06-0.53 711-2) BASO x10^3 (test code 0.03 10*3/uL 0.01-0.09 = 704-7) Lab Interpretation Abnormal (test code = 24084-6) [facility] CenterURINALYSIS2021-06-10 21:15:48 Test Item Value Reference Range Interpretation Comments APPEARANCE (test code = Clear Clear 8276430874) COLOR (test code = Yellow Yellow 8310541288) PH (test code = 4.8-8.0 6927996976) SP GRAVITY (test code = 1.003-1.030 0065209072) GLU U QUAL (test code = 50 mg/dL Normal A 2338557438) BLOOD (test code = Negative Negative INTERFERE NCE FROM 4676462801) ASCORBIC ACID M AY CAUSE FALSE NEG ATIVE RESULT KETONES (test code = Negative Negative 7265204006) PROTEIN (test code = Negative Negative 2887-8) UROBILIN (test code = Normal Normal 2186738212) BILIRUBIN (test code = Negative Negative 6663417228) NITRITE (test code = Negative Negative 0058980689) LEUK JESS (test code = Negative Negative 6585434463) RBC/HPF (test code = See_Comment [Autom ated message] 8537376760) The system [employer] generated this result transmitted ref erence range: 0 - 3 HP F. The reference range was not used to int erpret this result as normal/abnormal . WBC/HPF (test code = See_Comment [Autom ated message] 3985793440) The system [employer] generated this result transmitted ref erence range: 0 - 5 HP F. The reference range was not used to int erpret this result as normal/abnormal . BACTERIA (test code = Negative Negative 6601511386) SQ EPITH (test code = <1 See_Comment [Auto mated message] 3156570198) The system [employer] generated this result transmitted ref erence range: <=2 HPF. The reference range was not used to int erpret this result as normal/abnormal . HYAL CAST (test code = See_Comment [Aut omated message] 3537506321) The system [employer] generated this result transmitted ref erence range: <=2 LPF. The reference range was not used to int erpret this result as normal/abnormal . Lab Interpretation (test Abnormal code = 49636-2) [facility] CenterXR LUMBAR SPINE 2 [id number] 20:30:53 Impression: Postoperative changes. Degenerative changes. No [...] acute bony abnormality identified.End of Report.RL: 3901 [facility] CenterXR HIPS 2 VW [id number] 20:24:52Impression: Postoperative changes. Degenerative changes. No acute [...] clinicalconcern MRI is available.End of Report.RL: [facility] (NA, K, CL, CO2, GLUCOSE, BUN, CREATININE, CA)2020-05-24 14:15:00 Test Item Value Reference Range Interpretation Comments NA (test code = 139 mmol/L 135-145 7111441067) K (test code = 4.1 mmol/L 3.5-5 4070695773) CL (test code = 104 mmol/L 98-108 1520408670) CO2 TOTAL (test code = 26 mmol/L 23-31 0431963340) AGAP (test code = 2-16 5085046872) BUN (test code = 22 mg/dL 7-23 0922246035) GLUCOSE (test code = 203 mg/dL 70-110 H 2917846383) CREATININE (test code = 1.40 mg/dL 0.6-1.25 H 7875832055) CALCIUM (test code = 9.1 mg/dL 8.6-10.6 3937376606) eGFR Calculation mL/min/1.73m2 (Non-) (test code = 2338846488) eGFR Calculation mL/min/1.73m2 () (test code = 2703740092) ALYSSA (test code = ALYSSA) Association of [...] tests). Lab Interpretation Abnormal (test code = 20269-0) [facility] CenterHepatic Function Panel (ALB, T.PRO, BILI T, BU/BC, ALT, AST, ALK PHOS)2020-05-24 13:54:00 Test Item Value Reference Range Interpretation Comments TOTAL BILI (test code = 2462958031) 0.9 mg/dL 0.1-1.1 BILI UNCON (test code = 2215104889) 1.0 mg/dL 0.1-1.1 BILI CONJ (test code = 1672579248) 0.0 mg/dL 0-0.3 T PROTEIN (test code = 6893359680) 7.0 g/dL 6.3-8.2 ALBUMIN (test code = 9165950001) 4.2 g/dL 3.5-5 ALK PHOS (test code = 8519204932) 49 U/L 34-122 ALTv (test code = 1742-6) 17 U/L 5-50 AST(SGOT) (test code = 1150387205) 25 U/L 13-40 Lab Interpretation (test code = Normal 09840-0) [facility] CenteraPTT2020-07-09 13:32:00 Test Item Value Reference Range Interpretation Comments APTT Patient (test See_Comment [Automat ed code = 3173-2) message] The system which generated this result transmitted reference range : 23 - 38 Seconds . The reference range was not used to interpr et this result as normal/abnormal . ALYSSA (test code = ALYSSA) The [facility] patient population mean normal value for aPTT is 30 seconds. Lab Interpretation Normal (test code = 63984-4) [facility] CenterProthrombin Time (PT) / [id number] 13:30:00 Test Item Value Reference Range Interpretation [...] tions. Lab Interpretation (test Normal code = 26126-3) [facility] CenterCBC WITH [id number] 13:27:00 Test Item Value Reference Range Interpretation Comments WBC (test code = See_Comment [Automated 9490-2) message] The sy stem which generated this result transmitted reference range : 4.20 - 10.70 10*3/?L. The reference range was not used to interpret this result as normal/abnormal . RBC (test code = See_Comment L [Automated 369-8) message] The sy stem which generated this [...] RDW-SD (test code = 42.6 fL 38.5-51.6 82684-1) RDW-CV (test code = 12.3 % 12.1-15.4 788-0) PLT (test code = See_Comment [Automated 777-3) message] The sy stem which generated this result transmitted reference range : 150 - 328 10*3/ ?L. The reference r corey was not used to interpret this result as normal/abnormal . MPV (test code = 9.9 fL 9.8-13 98227-1) NRBC/100 WBC (test See_Comment [Automat ed code = 9010251271) message] The system which generated this result transmitted reference range : 0.0 - 10.0 /100 WBCs. The refer ence range was not u sed to interpret th is result as normal/abnormal . NRBC x10^3 (test code <0.01 See_Comment [Auto mated = 8305044962) message] The s ystem which generated this result transmitted reference range : 10*3/?L. The reference range was not used to interpret this result as normal/abnormal . GRAN MAT (NEUT) % 55.1 % (test code = 770-8) IMM GRAN % (test code 0.20 % = 0938724247) LYMPH % (test code = 28.8 % 736-9) MONO % (test code = 11.3 % 5905-5) EOS % (test code = 3.5 % 713-8) BASO % (test code = 1.1 % 706-2) GRAN MAT x10^3(ANC) 3.11 10*3/uL 1.99-6.95 (test code = 0557220982) IMM GRAN x10^3 (test <0.03 0-0.06 code = 1404719032) LYMPH x10^3 (test code 1.63 10*3/uL 1.09-3.23 = 731-0) MONO x10^3 (test code 0.64 10*3/uL 0.36-1.02 = 742-7) EOS x10^3 (test code = 0.20 10*3/uL 0.06-0.53 711-2) BASO x10^3 (test code 0.06 10*3/uL 0.01-0.09 = 704-7) Lab Interpretation Abnormal (test code = 14566-2) [facility] CenterXR ANKLE 3+ VW [id number] 13:25:58HISTORY: ?Pain. FINDINGS: AP, lateral, oblique views [...] No acute fracture or dislocation in left ankle.[facility] GLUCOSE (AUTOMATED)2020-03-23 22:34:00 Test Item Value Reference Range Interpretation Comments POCT GLU (test code = 3222357187) 173 mg/dL 70-110 H Lab Interpretation (test code = Abnormal 71172-5) [facility] GLUCOSE (AUTOMATED)2020-03-23 22:34:00 Test Item Value Reference Range Interpretation Comments POCT GLU (test code = 9177906006) 173 mg/dL 70-110 H Lab Interpretation (test code = Abnormal 47008-9) [facility] GLUCOSE (AUTOMATED)2020-03-23 18:12:00 Test Item Value Reference Range Interpretation Comments POCT GLU (test code = 165 mg/dL 70-110 H Notifi ed Provider [id number]) Lab Interpretation (test Abnormal code = 68806-7) [facility] GLUCOSE (AUTOMATED)2020-03-23 18:12:00 Test Item Value Reference Range Interpretation Comments POCT GLU (test code = 165 mg/dL 70-110 H Notifi ed Provider [id number]) Lab Interpretation (test Abnormal code = 68845-2) [facility] GLUCOSE (AUTOMATED)2020-03-23 15:04:00 Test Item Value Reference Range Interpretation Comments POCT GLU (test code = 114 mg/dL 70-110 H Notifi ed Provider [id number]) Lab Interpretation (test Abnormal code = 77286-8) [facility] GLUCOSE (AUTOMATED)2020-03-23 15:04:00 Test Item Value Reference Range Interpretation Comments POCT GLU (test code = 114 mg/dL 70-110 H Notifi ed Provider [id number]) Lab Interpretation (test Abnormal code = 56874-7) [facility] CenterFERRITIN [id number] 13:23:00 Test Item Value Reference Range Interpretation Comments FERRITIN (test code = 139.0 ng/mL 18-464 1930146298) ALYSSA (test code = ALYSSA) Biotin has been reported to cause a negative bias, interpret results relative to patient's use of biotin. Lab Interpretation (test Normal code = 74961-1) [facility] CenterFERRITIN [id number] 13:23:00 Test Item Value Reference Range Interpretation Comments FERRITIN (test code = 139.0 ng/mL 18-464 2583926518) ALYSSA (test code = ALYSSA) Biotin has been reported to cause a negative bias, interpret results relative to patient's use of biotin. Lab Interpretation (test Normal code = 32693-3) [facility] [id number] 12:53:00 Test Item Value Reference Range Interpretation Comments IRON (test code = 1995500612) 87 ug/dL 50-160 TIBC (test code = 7485875952) 385 ug/dL 250-410 % FE SAT (test code = 7413704859) 23 % 20-50 Lab Interpretation (test code = Normal 52556-2) [facility] [id number] 12:53:00 Test Item Value Reference Range Interpretation Comments IRON (test code = 1377260791) 87 ug/dL 50-160 TIBC (test code = 6896949746) 385 ug/dL 250-410 % FE SAT (test code = 1792545943) 23 % 20-50 Lab Interpretation (test code = Normal 07444-9) [facility] CenteraPTT2020-05-08 12:07:00 Test Item Value Reference Range Interpretation Comments APTT Patient (test code See_Comment [Au tomated message] = 3173-2) The system [employer] generated this result transmitted ref erence range: 26 - 36 Seconds. The reference range was not used to int erpret this result as normal/abnormal . Lab Interpretation (test Abnormal code = 74105-1) [facility]eraPTT2020-05-08 12:07:00 Test Item Value Reference Range Interpretation Comments APTT Patient (test code See_Comment [Au tomated message] = 3173-2) The system [employer] generated this result transmitted ref erence range: 26 - 36 Seconds. The reference range was not used to int erpret this result as normal/abnormal . Lab Interpretation (test Abnormal code = 99075-0) [facility] [id number] 11:57:00 Test Item Value Reference Range Interpretation Comments TROPONIN I (test 0.046 ng/mL See_Comment H [Automated code = 5668637443) message] The system which generated this result [...] ? Lab Interpretation Abnormal (test code = 50870-2) [facility] CenterTROPONIN [id number] 11:57:00 Test Item Value Reference Range Interpretation Comments TROPONIN I (test 0.046 ng/mL See_Comment H [Automated code = 9215154190) message] The system which generated this result [...] ? Lab Interpretation Abnormal (test code = 41278-5) [facility] CenterBASIC METABOLIC PANEL (NA, K, CL, CO2, GLUCOSE, BUN, CREATININE, CA)2020-03-23 11:52:00 Test Item Value Reference Range Interpretation Comments NA (test code = 137 mmol/L 135-145 1116805068) K (test code = 4.1 mmol/L 3.5-5 0555943901) CL (test code = 102 mmol/L 98-108 0460759214) CO2 TOTAL (test code = 26 mmol/L 23-31 1711217018) AGAP (test code = 2-16 8967307523) BUN (test code = 18 mg/dL 7-23 5121963296) GLUCOSE (test code = 119 mg/dL 70-110 H 3218351238) CREATININE (test code = 1.14 mg/dL 0.6-1.25 4420477678) CALCIUM (test code = 9.1 mg/dL 8.6-10.6 8864594429) eGFR Calculation mL/min/1.73m2 (Non-) (test code = 8352320406) eGFR Calculation mL/min/1.73m2 () (test code = 6052533689) ALYSSA (test code = ALYSSA) Association of [...] tests). Lab Interpretation Abnormal (test code = 86913-8) [facility] CenterMAGNESIUM2020-05-08 11:52:00 Test Item Value Reference Range Interpretation Comments MAGNESIUM (test code = 9001643977) 2.2 mg/dL 1.7-2.4 Lab Interpretation (test code = Normal 64034-0) [facility] (NA, K, CL, CO2, GLUCOSE, BUN, CREATININE, CA)2020-03-23 11:52:00 Test Item Value Reference Range Interpretation Comments NA (test code = 137 mmol/L 135-145 8432755248) K (test code = 4.1 mmol/L 3.5-5 6029830546) CL (test code = 102 mmol/L 98-108 9723617280) CO2 TOTAL (test code = 26 mmol/L 23-31 0848418562) AGAP (test code = 2-16 4003242657) BUN (test code = 18 mg/dL 7-23 2310834735) GLUCOSE (test code = 119 mg/dL 70-110 H 8416955339) CREATININE (test code = 1.14 mg/dL 0.6-1.25 0236182206) CALCIUM (test code = 9.1 mg/dL 8.6-10.6 0671241805) eGFR Calculation mL/min/1.73m2 (Non-) (test code = 4673254769) eGFR Calculation mL/min/1.73m2 () (test code = 6337030796) ALYSSA (test code = ALYSSA) Association of [...] tests). Lab Interpretation Abnormal (test code = 84273-3) [facility] CenterMAGNESIUM2020-05-08 11:52:00 Test Item Value Reference Range Interpretation Comments MAGNESIUM (test code = 4474413351) 2.2 mg/dL 1.7-2.4 Lab Interpretation (test code = Normal 19145-3) [facility] CenterProthrombin Time (PT) / [id number] 11:36:00 Test Item Value Reference Range Interpretation Comments PROTIME PATIENT (test See_Comment [Auto mated message] code = 5964-2) The system [employer] generated this result transmitted ref erence range: 10.1 - 1 2.6 Seconds. The re ference range was not u sed to interpret this result as normal/abnor mal. INR (test code = 6301-6) Nor mal INR <1.1; Warfarin Therap eutic range 2.0 to 3. 0 or 2.5 to 3.5, dep ending upon the indica tions. Lab Interpretation (test Normal code = 81237-3) [facility] CenterProthrombin Time (PT) / [id number] 11:36:00 Test Item Value Reference Range Interpretation Comments PROTIME PATIENT (test See_Comment [Auto mated message] code = 5964-2) The system [employer] generated this result transmitted ref erence range: 10.1 - 1 2.6 Seconds. The re ference range was not u sed to interpret this result as normal/abnor mal. INR (test code = 6301-6) Nor mal INR <1.1; Warfarin Therap eutic range 2.0 to 3. 0 or 2.5 to 3.5, dep ending upon the indica tions. Lab Interpretation (test Normal code = 66627-6) [facility] CenterTROPONIN [id number] 06:38:00 Test Item Value Reference Range Interpretation Comments TROPONIN I (test 0.045 ng/mL See_Comment H [Automated code = 3553278539) message] The system which generated this result [...] ? Lab Interpretation Abnormal (test code = 53917-6) [facility] CenterKARINFORMERLY [facility] [id number] 06:38:00 Test Item Value Reference Range Interpretation Comments TROPONIN I (test 0.045 ng/mL See_Comment H [Automated code = 0599970190) message] The system which generated this result [...] ? Lab Interpretation Abnormal (test code = 11091-8) [facility] (NA, K, CL, CO2, GLUCOSE, BUN, CREATININE, CA)2020-03-23 06:29:00 Test Item Value Reference Range Interpretation Comments NA (test code = 137 mmol/L 135-145 9876498067) K (test code = 3.6 mmol/L 3.5-5 0627829990) CL (test code = 101 mmol/L 98-108 4856572278) CO2 TOTAL (test code = 27 mmol/L 23-31 2933874314) AGAP (test code = 2-16 9407756350) BUN (test code = 19 mg/dL 7-23 5902911184) GLUCOSE (test code = 153 mg/dL 70-110 H 3278333096) CREATININE (test code = 1.22 mg/dL 0.6-1.25 4798714869) CALCIUM (test code = 8.9 mg/dL 8.6-10.6 8568491760) eGFR Calculation mL/min/1.73m2 (Non-) (test code = 9177233897) eGFR Calculation mL/min/1.73m2 () (test code = 5731749416) ALYSSA (test code = ALYSSA) Association of [...] tests). Lab Interpretation Abnormal (test code = 99073-8) [facility] 06[facility]29:00 Test Item Value Reference Range Interpretation Comments MAGNESIUM (test code = 7535864361) 1.7 mg/dL 1.7-2.4 Lab Interpretation (test code = Normal 94045-9) [facility] CenterLIPID PANEL (81700)(TOTAL CHOLESTEROL, TRIGLYCERIDES, HDL)2020-03-23 06:29:00 Test Item Value Reference Range Interpretation Comments CHOL (test code = 106 mg/dL 120-200 L 3027150289) HDL (test code = 46 mg/dL >40 0271155759) HDLC RATIO (test code = See_Comment [Au tomated message] 9996934221) The system [employer] generated this result transmit diamante reference range : <=5.0. The refe rence range was not u sed to interpret th is result as normal/abnormal . TRIG (test code = 74 mg/dL 30-170 5075542367) LDL CHOL (test code = 45 mg/dL See_Comment [Auto mated message] 97757-3) The system [employer] generated this result transmit diamante reference range : <=160. The refe rence range was not u sed to interpret th is result as normal/abnormal . VLDL (test code = 15 mg/dL 5-60 6502350009) Lab Interpretation (test Abnormal code = 20762-8) [facility] (NA, K, CL, CO2, GLUCOSE, BUN, CREATININE, CA)2020-03-23 06:29:00 Test Item Value Reference Range Interpretation Comments NA (test code = 137 mmol/L 135-145 4203424723) K (test code = 3.6 mmol/L 3.5-5 8275899393) CL (test code = 101 mmol/L 98-108 9315386366) CO2 TOTAL (test code = 27 mmol/L 23-31 4331895206) AGAP (test code = 2-16 8098043917) BUN (test code = 19 mg/dL 7-23 8051322741) GLUCOSE (test code = 153 mg/dL 70-110 H 7463139747) CREATININE (test code = 1.22 mg/dL 0.6-1.25 5570600173) CALCIUM (test code = 8.9 mg/dL 8.6-10.6 5004207725) eGFR Calculation mL/min/1.73m2 (Non-) (test code = 2768190619) eGFR Calculation mL/min/1.73m2 () (test code = 0217075862) ALYSSA (test code = ALYSSA) Association of [...] tests). Lab Interpretation Abnormal (test code = 24006-6) [facility] 06:29:00 Test Item Value Reference Range Interpretation Comments MAGNESIUM (test code = 1811108844) 1.7 mg/dL 1.7-2.4 Lab Interpretation (test code = Normal 76194-3) [facility] CenterLIP[facility] PANEL (75631)(TOTAL CHOLESTEROL, TRIGLYCERIDES, HDL)2020-03-23 06:29:00 Test Item Value Reference Range Interpretation Comments CHOL (test code = 106 mg/dL 120-200 L 6117469874) HDL (test code = 46 mg/dL >40 1771239026) HDLC RATIO (test code = See_Comment [Au tomated message] 6499799934) The system [employer] generated this result transmit diamante reference range : <=5.0. The refe rence range was not u sed to interpret th is result as normal/abnormal . TRIG (test code = 74 mg/dL 30-170 7171726954) LDL CHOL (test code = 45 mg/dL See_Comment [Auto mated message] 78804-0) The system [employer] generated this result transmit diamante reference range : <=160. The refe rence range was not u sed to interpret th is result as normal/abnormal . VLDL (test code = 15 mg/dL 5-60 4162514821) Lab Interpretation (test Abnormal code = 48045-9) [facility]eraPTT2020-[facility] 03:18:00 Test Item Value Reference Range Interpretation Comments APTT Patient (test code = See_Comment [ Automated message] 3173-2) The system [employer] generated this result transmitted ref erence range: 26 - 36 Seconds. The re ference range was not u sed to interpret this result as normal/abnor mal. Lab Interpretation (test Normal code = 68156-4) [facility] CenteraPTT2020-[facility]-08 03:18:00 Test Item Value Reference Range Interpretation Comments APTT Patient (test code = See_Comment [ Automated message] 3173-2) The system [employer] generated this result transmitted ref erence range: 26 - 36 Seconds. The re ference range was not u sed to interpret this result as normal/abnor mal. Lab Interpretation (test Normal code = 25474-5) [facility] CenterPROTHROMBIN TIME / [id number] 03:07:00 Test Item Value Reference Range Interpretation Comments PROTIME PATIENT (test See_Comment [Auto mated message] code = 5964-2) The system [employer] generated this result transmitted ref erence range: 10.1 - 1 2.6 Seconds. The re ference range was not u sed to interpret this result as normal/abnor mal. INR (test code = 6301-6) Nor mal INR <1.1; Warfarin Therap eutic range 2.0 to 3. 0 or 2.5 to 3.5, dep ending upon the indica tions. Lab Interpretation (test Normal code = 69564-0) [facility] CenterPROTHROMBIN TIME / [id number] 03:07:00 Test Item Value Reference Range Interpretation Comments PROTIME PATIENT (test See_Comment [Auto mated message] code = 5964-2) The system [employer] generated this result transmitted ref erence range: 10.1 - 1 2.6 Seconds. The re ference range was not u sed to interpret this result as normal/abnor mal. INR (test code = 6301-6) Nor mal INR <1.1; Warfarin Therap eutic range 2.0 to 3. 0 or 2.5 to 3.5, dep ending upon the indica tions. Lab Interpretation (test Normal code = 74838-8) [facility] CenterXR CHEST 2 [id number] 02:23:32 No acute cardiopulmonary process. Preliminary Report [...] reviewed this study and agree with the abovereport.[facility] CenterXR CHEST 2 [id number] 02:23:32 No acute cardiopulmonary process. Preliminary Report [...] is seen. Noacute bony abnormalities are noted. [facility], Radiant Results Inft User - 03/22/2020 9:24 [...] reviewed this study and agree with the abovereport.[facility] CenterCORON[facility]IRUS COVID-19 [id number] 01:23:00 Test Item Value Reference Range Interpretation Comments SARS-CoV-2 (test code = Not Detected Not Detected 72045-5) ALYSSA (test code = ALYSSA) ID NOW COVID-19 Assay is an isothermal nucleic acid amplification test intended for the qualitative detection of nucleic acid from SARS-CoV-2 viral RNA in nasopharyngeal (BRANCH OFFICE ADMINISTRATOR) specimens. It is used under Emergency Use [...] indicated. Lab Interpretation Normal (test code = 18666-4) [facility] Center[facility] COVID-19 [id number] 01:23:00 Test Item Value Reference Range Interpretation Comments SARS-CoV-2 (test code = Not Detected Not Detected 75319-7) ALYSSA (test code = ALYSSA) ID NOW COVID-19 Assay is an isothermal nucleic acid amplification test intended for the qualitative detection of nucleic acid from SARS-CoV-2 viral RNA in nasopharyngeal (BRANCH OFFICE ADMINISTRATOR) specimens. It is used under Emergency Use [...] indicated. Lab Interpretation Normal (test code = 00809-9) [facility] CenterN-TERMINAL [id number] 00:12:00 Test Item Value Reference Range Interpretation Comments NT-proBNP (test code 585 pg/mL See_Comment H [Autom ated = 3734461648) message] The system which generated this result transmitted reference range : <=450. The reference range was not used to interpret this result as normal/abnormal . ALYSSA (test code = ALYSSA) Biotin has been reported to cause a negative bias, interpret results relative to patient's use of biotin. Lab Interpretation Abnormal (test code = 59707-4) [facility] CenterTROPONIN [id number] 00:12:00 Test Item Value Reference Range Interpretation Comments TROPONIN I (test 0.030 ng/mL See_Comment [Automated code = 8360962805) message] The system which generated this result transmitted reference range : <=0.034. The reference range was not used to interpret this result as normal/abnormal . AYLSSA (test code = Equal or Less than [...] ? Lab Interpretation Normal (test code = 09146-4) [facility] CenterN-TERMINAL [id number] 00:12:00 Test Item Value Reference Range Interpretation Comments NT-proBNP (test code 585 pg/mL See_Comment H [Autom ated = 4846042622) message] The system which generated this result transmitted reference range : <=450. The reference range was not used to interpret this result as normal/abnormal . ALYSSA (test code = ALYSSA) Biotin has been reported to cause a negative bias, interpret results relative to patient's use of biotin. Lab Interpretation Abnormal (test code = 38331-8) [facility] CenterTROPONIN [id number] 00:12:00 Test Item Value Reference Range Interpretation Comments TROPONIN I (test 0.030 ng/mL See_Comment [Automated code = 9049280308) message] The system which generated this result [...] ? Lab Interpretation Normal (test code = 50477-0) [facility]. METABOLIC PANEL (93161)2020-03-23 00:03:00 Test Item Value Reference Range Interpretation Comments NA (test code = 138 mmol/L 135-145 1722508844) K (test code = 4.1 mmol/L 3.5-5 9378275205) CL (test code = 103 mmol/L 98-108 1605070900) CO2 TOTAL (test code = 26 mmol/L 23-31 1486144597) AGAP (test code = 2-16 1149731249) BUN (test code = 18 mg/dL 7-23 5574502447) GLUCOSE (test code = 157 mg/dL 70-110 H 5684795706) CREATININE (test code = 1.19 mg/dL 0.6-1.25 2468318997) TOTAL BILI (test code = 1.1 mg/dL 0.1-1.9 7811553960) CALCIUM (test code = 9.2 mg/dL 8.6-10.6 6670080876) T PROTEIN (test code = 6.8 g/dL 6.3-8.2 7202160310) ALBUMIN (test code = 4.0 g/dL 3.5-5 4574858787) ALK PHOS (test code = 51 U/L 34-122 9754485658) ALTv (test code = 16 U/L 5-50 1742-6) AST(SGOT) (test code = 23 U/L 13-40 3569736878) eGFR Calculation mL/min/1.73m2 (Non-) (test code = 2584707950) eGFR Calculation mL/min/1.73m2 () (test code = 4683023067) ALYSSA (test code = ALYSSA) Association of [...] tests). Lab Interpretation Abnormal (test code = 83396-5) [facility] METABOLIC PANEL (77496)2020-03-23 00:03:00 Test Item Value Reference Range Interpretation Comments NA (test code = 138 mmol/L 135-145 6991529759) K (test code = 4.1 mmol/L 3.5-5 4973283878) CL (test code = 103 mmol/L 98-108 3311897130) CO2 TOTAL (test code = 26 mmol/L 23-31 9667550582) AGAP (test code = 2-16 2088219863) BUN (test code = 18 mg/dL 7-23 6934876870) GLUCOSE (test code = 157 mg/dL 70-110 H 3761792418) CREATININE (test code = 1.19 mg/dL 0.6-1.25 3177504081) TOTAL BILI (test code = 1.1 mg/dL 0.1-1.5 5911784759) CALCIUM (test code = 9.2 mg/dL 8.6-10.6 8388317442) T PROTEIN (test code = 6.8 g/dL 6.3-8.2 0166722064) ALBUMIN (test code = 4.0 g/dL 3.5-5 9680447460) ALK PHOS (test code = 51 U/L 34-122 7506127506) ALTv (test code = 16 U/L 5-50 1742-6) AST(SGOT) (test code = 23 U/L 13-40 6183566793) eGFR Calculation mL/min/1.73m2 (Non-) (test code = 4087442590) eGFR Calculation mL/min/1.73m2 () (test code = 4061393430) ALYSSA (test code = ALYSSA) Association of [...] tests). Lab Interpretation Abnormal (test code = 70669-1) [facility] WITH [id number] 23:57:00 Test Item Value Reference Range Interpretation [...] RDW-SD (test code = 49.6 fL 38.5-51.6 41777-9) RDW-CV (test code = 14.6 % 12.1-15.4 788-0) PLT (test code = See_Comment L [Automated 777-3) message] The sy stem which generated this result transmitted reference range : 150 - 328 10*3/ ?L. The reference r corey was not used to interpret this result as normal/abnormal . MPV (test code = 9.9 fL 9.8-13 94359-9) NRBC/100 WBC (test See_Comment [Automat ed code = 0498971199) message] The system which generated this result transmitted reference range : 0.0 - 10.0 /100 WBCs. The refer ence range was not u sed to interpret th is result as normal/abnormal . NRBC x10^3 (test code <0.01 See_Comment [Auto mated = 0494374610) message] The s ystem which generated this result transmitted reference range : 10*3/?L. The reference range was not used to interpret this result as normal/abnormal . GRAN MAT (NEUT) % 55.3 % (test code = 770-8) IMM GRAN % (test code 0.20 % = 4707757974) LYMPH % (test code = 28.3 % 736-9) MONO % (test code = 12.6 % 5905-5) EOS % (test code = 3.1 % 713-8) BASO % (test code = 0.5 % 706-2) GRAN MAT x10^3(ANC) 3.20 10*3/uL 1.99-6.95 (test code = 4589892127) IMM GRAN x10^3 (test <0.03 0-0.06 code = 2158852292) LYMPH x10^3 (test code 1.64 10*3/uL 1.09-3.23 = 731-0) MONO x10^3 (test code 0.73 10*3/uL 0.36-1.02 = 742-7) EOS x10^3 (test code = 0.18 10*3/uL 0.06-0.53 711-2) BASO x10^3 (test code 0.03 10*3/uL 0.01-0.09 = 704-7) Lab Interpretation Abnormal (test code = 07717-3) [facility] WITH [id number] 23:57:00 Test Item Value Reference Range Interpretation [...] RDW-SD (test code = 49.6 fL 38.5-51.6 19159-7) RDW-CV (test code = 14.6 % 12.1-15.4 788-0) PLT (test code = See_Comment L [Automated 777-3) message] The sy stem which generated this result transmitted reference range : 150 - 328 10*3/ ?L. The reference r corey was not used to interpret this result as normal/abnormal . MPV (test code = 9.9 fL 9.8-13 53476-3) NRBC/100 WBC (test See_Comment [Automat ed code = 3342157699) message] The system which generated this result transmitted reference range : 0.0 - 10.0 /100 WBCs. The refer ence range was not u sed to interpret th is result as normal/abnormal . NRBC x10^3 (test code <0.01 See_Comment [Auto mated = 4673436362) message] The s ystem which generated this result transmitted reference range : 10*3/?L. The reference range was not used to interpret this result as normal/abnormal . GRAN MAT (NEUT) % 55.3 % (test code = 770-8) IMM GRAN % (test code 0.20 % = 7203632237) LYMPH % (test code = 28.3 % 736-9) MONO % (test code = 12.6 % 5905-5) EOS % (test code = 3.1 % 713-8) BASO % (test code = 0.5 % 706-2) GRAN MAT x10^3(ANC) 3.20 10*3/uL 1.99-6.95 (test code = 4204286804) IMM GRAN x10^3 (test <0.03 0-0.06 code = 1213562716) LYMPH x10^3 (test code 1.64 10*3/uL 1.09-3.23 = 731-0) MONO x10^3 (test code 0.73 10*3/uL 0.36-1.02 = 742-7) EOS x10^3 (test code = 0.18 10*3/uL 0.06-0.53 711-2) BASO x10^3 (test code 0.03 10*3/uL 0.01-0.09 = 704-7) Lab Interpretation Abnormal (test code = 12690-6) [facility]COR[facility] COVID-19 [id number] 21:48:00 Test Item Value Reference Range Interpretation Comments SARS-CoV-2 (test code = Not Detected Not Detected 03342-2) ALYSSA (test code = ALYSSA) ID NOW COVID-19 Assay is an isothermal nucleic acid amplification test intended for the qualitative detection of nucleic acid from SARS-CoV-2 viral RNA in nasopharyngeal (BRANCH OFFICE ADMINISTRATOR) specimens. It is used under Emergency Use [...] indicated. Lab Interpretation Normal (test code = 77672-6) [facility] CenterTroponin [id number] 21:44:00 Test Item Value Reference Range Interpretation Comments TROPONIN I (test 0.027 ng/mL See_Comment [Automated code = 8640983861) message] The system which generated this result [...] ? Lab Interpretation Normal (test code = 49184-6) [facility] CenterProthrombin Time (PT) / [id number] 21:41:00 Test Item Value Reference Range Interpretation [...] tions. Lab Interpretation (test Normal code = 47838-1) [facility] CenterN-TERMINAL [id number] 21:39:00 Test Item Value Reference Range Interpretation Comments NT-proBNP (test code 663 pg/mL See_Comment H [Autom ated = 1195208458) message] The system which generated this result transmitted reference range : <=450. The reference range was not used to interpret this result as normal/abnormal . ALYSSA (test code = ALYSSA) Biotin has been reported to cause a negative bias, interpret results relative to patient's use of biotin. Lab Interpretation Abnormal (test code = 49291-1) [facility] CenterCOMP. METABOLIC PANEL (01512)2020-03-21 21:37:00 Test Item Value Reference Range Interpretation Comments NA (test code = 139 mmol/L 135-145 5935989399) K (test code = 4.1 mmol/L 3.5-5 2263080383) CL (test code = 102 mmol/L 98-108 7664693363) CO2 TOTAL (test code = 29 mmol/L 23-31 9111497494) AGAP (test code = 2-16 6550648120) BUN (test code = 18 mg/dL 7-23 2766756588) GLUCOSE (test code = 277 mg/dL 70-110 H 3204951211) CREATININE (test code = 1.23 mg/dL 0.6-1.25 4195906359) TOTAL BILI (test code = 1.3 mg/dL 0.1-1.1 H 2525661936) CALCIUM (test code = 9.8 mg/dL 8.6-10.6 6559747164) T PROTEIN (test code = 7.0 g/dL 6.3-8.2 3947199440) ALBUMIN (test code = 4.2 g/dL 3.5-5 4052500222) ALK PHOS (test code = 50 U/L 34-122 0201396498) ALTv (test code = 15 U/L 5-50 1742-6) AST(SGOT) (test code = 22 U/L 13-40 2045305963) eGFR Calculation mL/min/1.73m2 (Non-) (test code = 0689879499) eGFR Calculation mL/min/1.73m2 () (test code = 0355577309) ALYSSA (test code = ALYSSA) Association of [...] tests). Lab Interpretation Abnormal (test code = 68798-7) [facility] CenterLipase [id number] 21:37:00 Test Item Value Reference Range Interpretation Comments LIPASE (test code = 8604743598) 161 U/L 0-220 Lab Interpretation (test code = Normal 42608-6) [facility] 1 [id number] 20:46:31HISTORY: Chest pain. TECHNIQUE: Portable AP view [...] noted. Mild thoracolumbar scoliosis noted.CONCLUSIONS: Mild cardiomegaly. [facility] CenterLamtic Acid Whole [id number] 20:43:00 Test Item Value Reference Range Interpretation Comments LACTIC ACID (test code = 1.91 mmol/L 0.3-2.6 8810947878) [facility] GLUCOSE (AUTOMATED)2020-03-07 20:58:00 Test Item Value Reference Range Interpretation Comments POCT GLU (test code = 9875437792) 216 mg/dL 70-110 H Lab Interpretation (test code = Abnormal 84893-4) [facility] GLUCOSE (AUTOMATED)2020-03-07 16:00:00 Test Item Value Reference Range Interpretation Comments POCT GLU (test code = 4815176141) 168 mg/dL 70-110 H Lab Interpretation (test code = Abnormal 21030-4) [facility] GLUCOSE (AUTOMATED)2020-03-07 13:07:00 Test Item Value Reference Range Interpretation Comments POCT GLU (test code = 0993413904) 148 mg/dL 70-110 H Lab Interpretation (test code = Abnormal 46887-9) [facility] CenterTROPONIN [id number] 11:27:00 Test Item Value Reference Range Interpretation Comments TROPONIN I (test 0.051 ng/mL See_Comment H [Automated code = 0621142910) message] The system which generated this result [...] ? Lab Interpretation Abnormal (test code = 42496-4) [facility] CenterN-TERMINAL [id number] 11:24:00 Test Item Value Reference Range Interpretation Comments NT-proBNP (test code 336 pg/mL See_Comment [Autom ated = 0248923944) message] The system which generated this result transmitted reference range : <=450. The reference range was not used to interpret this result as normal/abnormal . ALYSSA (test code = ALYSSA) Biotin has been reported to cause a negative bias, interpret results relative to patient's use of biotin. Lab Interpretation Normal (test code = 12870-6) [facility] (NA, K, CL, CO2, GLUCOSE, BUN, CREATININE, CA)2020-03-07 11:14:00 Test Item Value Reference Range Interpretation Comments NA (test code = 138 mmol/L 135-145 0338520206) K (test code = 3.8 mmol/L 3.5-5 2582402034) CL (test code = 97 mmol/L 98-108 L 4804434820) CO2 TOTAL (test code = 30 mmol/L 23-31 0659408002) AGAP (test code = 2-16 3598803589) BUN (test code = 36 mg/dL 7-23 H 9607413605) GLUCOSE (test code = 140 mg/dL 70-110 H 7024483283) CREATININE (test code = 1.50 mg/dL 0.6-1.25 H 9036105308) CALCIUM (test code = 10.0 mg/dL 8.6-10.6 7213832527) eGFR Calculation mL/min/1.73m2 (Non-) (test code = 1497054033) eGFR Calculation mL/min/1.73m2 () (test code = 4118187712) ALYSSA (test code = ALYSSA) Association of [...] tests). Lab Interpretation Abnormal (test code = 38883-4) [facility] CenterURIC [id number] 11:14:00 Test Item Value Reference Range Interpretation Comments URIC ACID (test code = 6634521439) 5.4 mg/dL 3.6-8 Lab Interpretation (test code = Normal 69691-0) [facility] WITH [id number] 10:53:00 Test Item Value Reference Range Interpretation Comments WBC (test code = See_Comment [Automated 3090-2) message] The sy stem which generated this result transmitted reference range : 4.20 - 10.70 10*3/?L. The reference range was not used to interpret this result as normal/abnormal . RBC (test code = See_Comment L [Automated 556-8) message] The sy stem which generated this [...] RDW-SD (test code = 45.1 fL 38.5-51.6 46113-9) RDW-CV (test code = 14.2 % 12.1-15.4 788-0) PLT (test code = See_Comment [Automated 777-3) message] The sy stem which generated this result transmitted reference range : 150 - 328 10*3/ ?L. The reference r corey was not used to interpret this result as normal/abnormal . MPV (test code = 9.8 fL 9.8-13 04231-2) NRBC/100 WBC (test See_Comment [Automat ed code = 9374859885) message] The system which generated this result transmitted reference range : 0.0 - 10.0 /100 WBCs. The refer ence range was not u sed to interpret th is result as normal/abnormal . NRBC x10^3 (test code <0.01 See_Comment [Auto mated = 9747017690) message] The s ystem which generated this result transmitted reference range : 10*3/?L. The reference range was not used to interpret this result as normal/abnormal . GRAN MAT (NEUT) % 51.0 % (test code = 770-8) IMM GRAN % (test code 0.50 % = 6920757989) LYMPH % (test code = 32.0 % 736-9) MONO % (test code = 11.3 % 5905-5) EOS % (test code = 4.3 % 713-8) BASO % (test code = 0.9 % 706-2) GRAN MAT x10^3(ANC) 2.85 10*3/uL 1.99-6.95 (test code = 0328530512) IMM GRAN x10^3 (test 0.03 10*3/uL 0-0.06 code = 6376389224) LYMPH x10^3 (test code 1.79 10*3/uL 1.09-3.23 = 731-0) MONO x10^3 (test code 0.63 10*3/uL 0.36-1.02 = 742-7) EOS x10^3 (test code = 0.24 10*3/uL 0.06-0.53 711-2) BASO x10^3 (test code 0.05 10*3/uL 0.01-0.09 = 704-7) Lab Interpretation Abnormal (test code = 16831-8) [facility] GLUCOSE (AUTOMATED)2020-03-06 22:46:00 Test Item Value Reference Range Interpretation Comments POCT GLU (test code = 2328152737) 209 mg/dL 70-110 H Lab Interpretation (test code = Abnormal 79148-2) [facility] GLUCOSE (AUTOMATED)2020-03-06 16:23:00 Test Item Value Reference Range Interpretation Comments POCT GLU (test code = 2321611816) 254 mg/dL 70-110 H Lab Interpretation (test code = Abnormal 48197-4) [facility] GLUCOSE (AUTOMATED)2020-03-06 12:51:00 Test Item Value Reference Range Interpretation Comments POCT GLU (test code = 4598280781) 126 mg/dL 70-110 H Lab Interpretation (test code = Abnormal 24833-0) [facility] CenterTROPONIN [id number] 10:16:00 Test Item Value Reference Range Interpretation Comments TROPONIN I (test 0.056 ng/mL See_Comment H [Automated code = 9056832247) message] The system which generated this result [...] ? Lab Interpretation Abnormal (test code = 43551-4) [facility] Metabolic Panel (NA, K, CL, CO2, GLUCOSE, BUN, CREATININE, CA)2020-03-06 10:13:00 Test Item Value Reference Range Interpretation Comments NA (test code = 136 mmol/L 135-145 4731221981) K (test code = 4.1 mmol/L 3.5-5 8105616373) CL (test code = 95 mmol/L 98-108 L 8084623629) CO2 TOTAL (test code = 30 mmol/L 23-31 5697232890) AGAP (test code = 2-16 9737781900) BUN (test code = 35 mg/dL 7-23 H 7659595451) GLUCOSE (test code = 174 mg/dL 70-110 H 8042375582) CREATININE (test code = 1.67 mg/dL 0.6-1.25 H 9152331941) CALCIUM (test code = 9.7 mg/dL 8.6-10.6 5856908192) eGFR Calculation mL/min/1.73m2 (Non-) (test code = 6964831393) eGFR Calculation mL/min/1.73m2 () (test code = 5819843184) ALYSSA (test code = ALYSSA) Association of [...] tests). Lab Interpretation Abnormal (test code = 21307-6) [facility] WITH [id number] 09:16:00 Test Item Value Reference Range Interpretation Comments WBC (test code = See_Comment [Automated 4590-2) message] The sy stem which generated this [...] RDW-SD (test code = 45.6 fL 38.5-51.6 54646-1) RDW-CV (test code = 14.3 % 12.1-15.4 788-0) PLT (test code = See_Comment [Automated 777-3) message] The sy stem which generated this result transmitted reference range : 150 - 328 10*3/ ?L. The reference r corey was not used to interpret this result as normal/abnormal . MPV (test code = 9.8 fL 9.8-13 36461-6) NRBC/100 WBC (test See_Comment [Automat ed code = 0034600894) message] The system which generated this result transmitted reference range : 0.0 - 10.0 /100 WBCs. The refer ence range was not u sed to interpret th is result as normal/abnormal . NRBC x10^3 (test code <0.01 See_Comment [Auto mated = 8436750678) message] The s ystem which generated this result transmitted reference range : 10*3/?L. The reference range was not used to interpret this result as normal/abnormal . GRAN MAT (NEUT) % 56.1 % (test code = 770-8) IMM GRAN % (test code 0.10 % = 7410469933) LYMPH % (test code = 29.7 % 736-9) MONO % (test code = 9.6 % 5905-5) EOS % (test code = 3.8 % 713-8) BASO % (test code = 0.7 % 706-2) GRAN MAT x10^3(ANC) 3.79 10*3/uL 1.99-6.95 (test code = 5469784623) IMM GRAN x10^3 (test <0.03 0-0.06 code = 4037205396) LYMPH x10^3 (test code 2.01 10*3/uL 1.09-3.23 = 731-0) MONO x10^3 (test code 0.65 10*3/uL 0.36-1.02 = 742-7) EOS x10^3 (test code = 0.26 10*3/uL 0.06-0.53 711-2) BASO x10^3 (test code 0.05 10*3/uL 0.01-0.09 = 704-7) Lab Interpretation Abnormal (test code = 35146-5) [facility] GLUCOSE (AUTOMATED)2020-03-06 01:25:00 Test Item Value Reference Range Interpretation Comments POCT GLU (test code = 1855932826) 208 mg/dL 70-110 H Lab Interpretation (test code = Abnormal 57955-3) [facility]TRT[facility] [id number] 00:08:00 Test Item Value Reference Range Interpretation Comments TROPONIN I (test 0.047 ng/mL See_Comment H [Automated code = 8755714362) message] The system which generated this result [...] ? Lab Interpretation Abnormal (test code = 42381-2) [facility] GLUCOSE (AUTOMATED)2020-03-05 21:19:00 Test Item Value Reference Range Interpretation Comments POCT GLU (test code = 8251219252) 234 mg/dL 70-110 H Lab Interpretation (test code = Abnormal 48593-1) [facility] GLUCOSE (AUTOMATED)2020-03-05 16:55:00 Test Item Value Reference Range Interpretation Comments POCT GLU (test code = 9653084619) 258 mg/dL 70-110 H Lab Interpretation (test code = Abnormal 62397-5) [facility] GLUCOSE (AUTOMATED)2020-03-05 12:59:00 Test Item Value Reference Range Interpretation Comments POCT GLU (test code = 4520827586) 194 mg/dL 70-110 H Lab Interpretation (test code = Abnormal 01293-2) [facility] CenterTROP[facility] [id number] 10:54:00 Test Item Value Reference Range Interpretation Comments TROPONIN I (test 0.071 ng/mL See_Comment H [Automated code = 4880319358) message] The system which generated this result [...] ? Lab Interpretation Abnormal (test code = 03999-9) [facility] (NA, K, CL, CO2, GLUCOSE, BUN, CREATININE, CA)2020-03-05 10:43:00 Test Item Value Reference Range Interpretation Comments NA (test code = 139 mmol/L 135-145 1490268521) K (test code = 4.1 mmol/L 3.5-5 3112857875) CL (test code = 101 mmol/L 98-108 5814120840) CO2 TOTAL (test code = 27 mmol/L 23-31 1647007778) AGAP (test code = 2-16 5763635988) BUN (test code = 25 mg/dL 7-23 H 3927068240) GLUCOSE (test code = 243 mg/dL 70-110 H 6578212435) CREATININE (test code = 1.22 mg/dL 0.6-1.25 6407026712) CALCIUM (test code = 9.8 mg/dL 8.6-10.6 4156860176) eGFR Calculation mL/min/1.73m2 (Non-) (test code = 0987291427) eGFR Calculation mL/min/1.73m2 () (test code = 8977660682) ALYSSA (test code = ALYSSA) Association of [...] tests). Lab Interpretation Abnormal (test code = 28270-3) [facility] WITH [id number] 10:23:00 Test Item Value Reference Range Interpretation Comments WBC (test code = See_Comment [Automated message] 6690-2) The system [employer] generated this result transmitted ref erence range: 4.20 - 1 0.70 10*3/?L. The re ference range was not u sed to interpret this result as normal/abnor mal. RBC (test code = See_Comment [Automated message] 9-8) The system [employer] generated this result transmitted ref erence range: [...] RDW-SD (test code 47.8 fL 38.5-51.6 = 28195-0) RDW-CV (test code 14.4 % 12.1-15.4 = 788-0) PLT (test code = See_Comment [Automated message] 847-3) The system [employer] generated this result transmitted ref erence range: 150 - 32 8 10*3/?L. The re ference range was not u sed to interpret this result as normal/abnor mal. MPV (test code = 9.8 fL 9.8-13 83760-9) NRBC/100 WBC (test See_Comment [Automat ed message] code = 3835069749) The syste [email or web address] which generated this result transmitted ref erence range: 0.0 - 10 .0 /100 WBCs. The refer ence range was not u sed to interpret this result as normal/abnor mal. NRBC x10^3 (test <0.01 See_Comment [Automated message] code = 0743325774) The syste m which generated this result transmitted ref erence range: 10*3/?L. The reference range was not used to interpr et this result as normal/abnormal . GRAN MAT (NEUT) % 48.8 % (test code = 702-8) IMM GRAN % (test 0.20 % code = 4859932186) LYMPH % (test code 34.7 % = 736-9) MONO % (test code 10.8 % = 5905-5) EOS % (test code = 4.9 % 713-8) BASO % (test code 0.6 % = 706-2) GRAN MAT 2.49 10*3/uL 1.99-6.95 x10^3(ANC) (test code = 8749741690) IMM GRAN x10^3 <0.03 0-0.06 (test code = 1867023813) LYMPH x10^3 (test 1.77 10*3/uL 1.09-3.23 code = 731-0) MONO x10^3 (test 0.55 10*3/uL 0.36-1.02 code = 742-7) EOS x10^3 (test 0.25 10*3/uL 0.06-0.53 code = 711-2) BASO x10^3 (test 0.03 10*3/uL 0.01-0.09 code = 704-7) [facility] CenterXR CHEST 1 [id number] 03:06:08 No acute cardiopulmonary process. Unchanged enlargement [...] terminating over themid to lower thoracic spine. [facility], Radiant Results Inft User - 03/04/2020 10:07 [...] reviewed this study and agree with the abovereport.[facility] CORONAVIRUS COVID-19 [id number] 00:34:00 Test Item Value Reference Range Interpretation Comments SARS-CoV-2 (test code = Not Detected Not Detected 85264-1) ALYSSA (test code = ALYSSA) ID NOW COVID-19 Assay is an isothermal nucleic acid amplification test intended for the qualitative detection of nucleic acid from SARS-CoV-2 viral RNA in nasopharyngeal (BRANCH OFFICE ADMINISTRATOR) specimens. It is used under Emergency Use [...] indicated. Lab Interpretation Normal (test code = 40905-4) [facility] CenterTroponin [id number] 00:08:00 Test Item Value Reference Range Interpretation Comments TROPONIN I (test 0.056 ng/mL See_Comment H [Automated code = 2709580482) message] The system which generated this result [...] ? Lab Interpretation Abnormal (test code = 34552-8) [facility] CenterN-TERMINAL [id number] 00:04:00 Test Item Value Reference Range Interpretation Comments NT-proBNP (test code 562 pg/mL See_Comment H [Autom ated = 3869376565) message] The system which generated this result transmitted reference range : <=450. The reference range was not used to interpret this result as normal/abnormal . ALYSSA (test code = ALYSSA) Biotin has been reported to cause a negative bias, interpret results relative to patient's use of biotin. Lab Interpretation Abnormal (test code = 35831-7) [facility] CenterProthrombin Time (PT) / [id number] 23:57:00 Test Item Value Reference Range Interpretation [...] tions. Lab Interpretation (test Normal code = 26596-8) [facility] CenterBasi Metabolic Panel (NA, K, CL, CO2, GLUCOSE, BUN, CREATININE, CA)2020-03-04 23:56:00 Test Item Value Reference Range Interpretation Comments NA (test code = 139 mmol/L 135-145 9482330558) K (test code = 4.1 mmol/L 3.5-5 5682076584) CL (test code = 102 mmol/L 98-108 0861608925) CO2 TOTAL (test code = 29 mmol/L 23-31 8446739204) AGAP (test code = 2-16 9813880400) BUN (test code = 23 mg/dL 7-23 9899728611) GLUCOSE (test code = 193 mg/dL 70-110 H 2636999940) CREATININE (test code = 1.25 mg/dL 0.6-1.25 1263206229) CALCIUM (test code = 9.7 mg/dL 8.6-10.6 8428473344) eGFR Calculation mL/min/1.73m2 (Non-) (test code = 6425506534) eGFR Calculation mL/min/1.73m2 () (test code = 1714811832) ALYSSA (test code = ALYSSA) Association of [...] tests). Lab Interpretation Abnormal (test code = 65792-2) [facility] CenterHepatic Function Panel (ALB, T.PRO, BILI T, BU/BC, ALT, AST, ALK PHOS)2020-03-04 23:56:00 Test Item Value Reference Range Interpretation Comments TOTAL BILI (test code = 9442503761) 1.1 mg/dL 0.1-1.1 BILI UNCON (test code = 9568573097) 1.1 mg/dL 0.1-1.1 BILI CONJ (test code = 5137488381) 0.0 mg/dL 0-0.3 T PROTEIN (test code = 8956933104) 7.1 g/dL 6.3-8.2 ALBUMIN (test code = 8932378210) 4.1 g/dL 3.5-5 ALK PHOS (test code = 6787519676) 61 U/L 34-122 ALTv (test code = 1742-6) 16 U/L 5-50 AST(SGOT) (test code = 7716890804) 23 U/L 13-40 Lab Interpretation (test code = Normal 75087-3) [facility] CenterLipase [id number] 23:56:00 Test Item Value Reference Range Interpretation Comments LIPASE (test code = 0770912670) 149 U/L 0-220 Lab Interpretation (test code = Normal 45358-4) [facility] CenteraPTT2020-04-19 23:56:00 Test Item Value Reference Range Interpretation Comments APTT Patient (test See_Comment [Automat ed code = 3173-2) message] The system which generated this result transmitted reference range : 23 - 38 Seconds . The reference range was not used to interpr et this result as normal/abnormal . ALYSSA (test code = ALYSSA) The [facility] patient population mean normal value for aPTT is 30 seconds. Lab Interpretation Normal (test code = 90799-9) [facility] CenterCBC WITH [id number] 23:46:00 Test Item Value Reference Range Interpretation [...] RDW-SD (test code = 48.3 fL 38.5-51.6 91557-0) RDW-CV (test code = 14.7 % 12.1-15.4 788-0) PLT (test code = See_Comment [Automated 777-3) message] The sy stem which generated this result transmitted reference range : 150 - 328 10*3/ ?L. The reference r corey was not used to interpret this result as normal/abnormal . MPV (test code = 9.8 fL 9.8-13 77801-3) NRBC/100 WBC (test See_Comment [Automat ed code = 7626352866) message] The system which generated this result transmitted reference range : 0.0 - 10.0 /100 WBCs. The refer ence range was not u sed to interpret th is result as normal/abnormal . NRBC x10^3 (test code <0.01 See_Comment [Auto mated = 4941159841) message] The s ystem which generated this result transmitted reference range : 10*3/?L. The reference range was not used to interpret this result as normal/abnormal . GRAN MAT (NEUT) % 60.1 % (test code = 770-8) IMM GRAN % (test code 0.20 % = 0966550746) LYMPH % (test code = 26.4 % 736-9) MONO % (test code = 9.9 % 5905-5) EOS % (test code = 2.8 % 713-8) BASO % (test code = 0.6 % 706-2) GRAN MAT x10^3(ANC) 3.17 10*3/uL 1.99-6.95 (test code = 1257106018) IMM GRAN x10^3 (test <0.03 0-0.06 code = 2008417276) LYMPH x10^3 (test code 1.39 10*3/uL 1.09-3.23 = 731-0) MONO x10^3 (test code 0.52 10*3/uL 0.36-1.02 = 742-7) EOS x10^3 (test code = 0.15 10*3/uL 0.06-0.53 711-2) BASO x10^3 (test code 0.03 10*3/uL 0.01-0.09 = 704-7) Lab Interpretation Abnormal (test code = 84570-1) [facility] GLUCOSE (AUTOMATED)2020-03-02 16:04:00 Test Item Value Reference Range Interpretation Comments POCT GLU (test code = 8015028980) 214 mg/dL 70-110 H Lab Interpretation (test code = Abnormal 92692-0) [facility] GLUCOSE (AUTOMATED)2020-03-02 16:04:00 Test Item Value Reference Range Interpretation Comments POCT GLU (test code = 7144056688) 271 mg/dL 70-110 H Lab Interpretation (test code = Abnormal 04273-5) [facility] CenterN-TERMINAL [id number] 09:43:00 Test Item Value Reference Range Interpretation Comments NT-proBNP (test code 1670 pg/mL See_Comment H [Autom ated = 8684524760) message] The system which generated this result transmitted reference range : <=450. The reference range was not used to interpret this result as normal/abnormal . ALYSSA (test code = ALYSSA) Biotin has been reported to cause a negative bias, interpret results relative to patient's use of biotin. Lab Interpretation Abnormal (test code = 19500-2) [facility]BA[facility] (NA, K, CL, CO2, GLUCOSE, BUN, CREATININE, CA)2020-03-02 09:33:00 Test Item Value Reference Range Interpretation Comments NA (test code = 143 mmol/L 135-145 3295115211) K (test code = 3.8 mmol/L 3.5-5 1725196713) CL (test code = 105 mmol/L 98-108 8380295853) CO2 TOTAL (test code = 28 mmol/L 23-31 3328873625) AGAP (test code = 2-16 3110601949) BUN (test code = 19 mg/dL 7-23 8779986005) GLUCOSE (test code = 152 mg/dL 70-110 H 0011732732) CREATININE (test code = 1.18 mg/dL 0.6-1.25 8302801475) CALCIUM (test code = 9.0 mg/dL 8.6-10.6 5930811260) eGFR Calculation mL/min/1.73m2 (Non-) (test code = 8865764192) eGFR Calculation mL/min/1.73m2 () (test code = 6259762862) ALYSSA (test code = ALYSSA) Association of [...] tests). Lab Interpretation Abnormal (test code = 55132-4) [facility] 09:33:00 Test Item Value Reference Range Interpretation Comments MAGNESIUM (test code = 7755305070) 1.8 mg/dL 1.7-2.4 Lab Interpretation (test code = Normal 61406-8) [facility] CenterPOCT GLUCOSE (AUT[facility]ATED)2020-03-01 20:42:00 Test Item Value Reference Range Interpretation Comments POCT GLU (test code = 7432504587) 231 mg/dL 70-110 H Lab Interpretation (test code = Abnormal 18444-4) [facility] CenterVITAMIN B12, [id number] 11:51:00 Test Item Value Reference Range Interpretation Comments VIT B12 (test code = 325 pg/mL 240-930 3546781866) ALYSSA (test code = ALYSSA) Biotin has been reported to cause a positive bias, interpret results relative to patient's use of biotin. Lab Interpretation (test Normal code = 61668-1) [facility] CenterFOLATE2020-04-16 11:49:00 Test Item Value Reference Range Interpretation Comments FOLATE SER (test code = >20.0 3-20 H Slig ht hemolysis 2636296233) Lab Interpretation (test Abnormal code = 22401-6) [facility] CenterPROCALCITONIN2020-04-16 10:49:00 Test Item Value Reference Range Interpretation Comments Procalcitonin (test 3.05 ng/mL <0.07 H code = 5928362369) ALYSSA (test code = ALYSSA) INTERPRETATION OF [...] lung abscess/empyema. For further information please refer to:[email or web address] Lab Interpretation Abnormal (test code = 21476-9) [facility] CenterWENDY [id number] 09:58:00 Test Item Value Reference Range Interpretation Comments TROPONIN I (test 0.093 ng/mL See_Comment H [Automated code = 2095893593) message] The system which generated this result [...] ? Lab Interpretation Abnormal (test code = 83653-8) [facility] CenterN-TERMINAL [id number] 09:55:00 Test Item Value Reference Range Interpretation Comments NT-proBNP (test code 4450 pg/mL See_Comment H [Autom ated = 0262108052) message] The system which generated this result transmitted reference range : <=450. The reference range was not used to interpret this result as normal/abnormal . ALYSSA (test code = ALYSSA) Biotin has been reported to cause a negative bias, interpret results relative to patient's use of biotin. Lab Interpretation Abnormal (test code = 43359-5) [facility] CenterBasic Metabolic Panel (NA, K, CL, CO2, GLUCOSE, BUN, CREATININE, CA)2020-03-01 09:50:00 Test Item Value Reference Range Interpretation Comments NA (test code = 141 mmol/L 135-145 1896541953) K (test code = 3.5 mmol/L 3.5-5 9478422632) CL (test code = 105 mmol/L 98-108 5455898773) CO2 TOTAL (test code = 26 mmol/L 23-31 9658642168) AGAP (test code = 2-16 1417880389) BUN (test code = 13 mg/dL 7-23 4064894327) GLUCOSE (test code = 219 mg/dL 70-110 H 8702238527) CREATININE (test code = 1.01 mg/dL 0.6-1.25 8912424334) CALCIUM (test code = 8.7 mg/dL 8.6-10.6 7706889807) eGFR Calculation mL/min/1.73m2 (Non-) (test code = 8216426108) eGFR Calculation mL/min/1.73m2 () (test code = 8896609350) ALYSSA (test code = ALYSSA) Association of [...] tests). Lab Interpretation Abnormal (test code = 44778-6) [facility] CenterMagnesium [id number] 09:50:00 Test Item Value Reference Range Interpretation Comments MAGNESIUM (test code = 3523070163) 1.9 mg/dL 1.7-2.4 Lab Interpretation (test code = Normal 20930-2) [facility] WITH [id number] 09:22:00 Test Item Value Reference Range Interpretation [...] RDW-SD (test code = 47.8 fL 38.5-51.6 45456-9) RDW-CV (test code = 14.8 % 12.1-15.4 788-0) PLT (test code = See_Comment L [Automated 777-3) message] The sy stem which generated this result transmitted reference range : 150 - 328 10*3/ ?L. The reference r corey was not used to interpret this result as normal/abnormal . MPV (test code = 9.9 fL 9.8-13 32255-7) NRBC/100 WBC (test See_Comment [Automat ed code = 1777162391) message] The system which generated this result transmitted reference range : 0.0 - 10.0 /100 WBCs. The refer ence range was not u sed to interpret th is result as normal/abnormal . NRBC x10^3 (test code <0.01 See_Comment [Auto mated = 1192743200) message] The s ystem which generated this result transmitted reference range : 10*3/?L. The reference range was not used to interpret this result as normal/abnormal . GRAN MAT (NEUT) % 66.0 % (test code = 770-8) IMM GRAN % (test code 0.30 % = 2564878999) LYMPH % (test code = 20.8 % 736-9) MONO % (test code = 9.5 % 5905-5) EOS % (test code = 2.8 % 713-8) BASO % (test code = 0.6 % 706-2) GRAN MAT x10^3(ANC) 4.44 10*3/uL 1.99-6.95 (test code = 7043822780) IMM GRAN x10^3 (test <0.03 0-0.06 code = 5276384143) LYMPH x10^3 (test code 1.40 10*3/uL 1.09-3.23 = 731-0) MONO x10^3 (test code 0.64 10*3/uL 0.36-1.02 = 742-7) EOS x10^3 (test code = 0.19 10*3/uL 0.06-0.53 711-2) BASO x10^3 (test code 0.04 10*3/uL 0.01-0.09 = 704-7) Lab Interpretation Abnormal (test code = 50818-6) [facility] CenterGLYCOSYLATED HEMOGLOBIN (A1C)2020-03-01 06:49:00 Test Item Value Reference Interpretation Comments Range HGB A1C (test code = See_Comment H [Autom ated 7078-4) message] The system which generated this result transmitted reference range : 4.0 - 6.0 % NGSP. The reference range was not used to interpret this result as normal/abnormal . ALYSSA (test code = %A1C (NGSP) ALYSSA) Interpretation (ADA)4.8-5.6 ? ? Normal or (Non-Diabetic Range)5.7-6.4 ? ? Increased Risk (Pre-Diabetic)>6.5 ?Diabetes Indicated Lab Interpretation Abnormal (test code = 58152-5) [facility] CenterURIC [id number] 06:25:00 Test Item Value Reference Range Interpretation Comments URIC ACID (test code = 1204233800) 2.3 mg/dL 3.6-8 L Lab Interpretation (test code = Abnormal 07641-6) [facility] CenterSEDIMENTATION [id number] 05:25:00 Test Item Value Reference Range Interpretation Comments ESR (test code = See_Comment H [Automated message] 5877691589) The system [employer] generated this result transmitted ref erence range: 0 - 10 m m/HR. The reference r corey was not used to interpret this result as normal/abnor mal. Lab Interpretation (test Abnormal code = 93430-8) [facility] CenterN-TERMINAL [id number] 04:07:00 Test Item Value Reference Range Interpretation Comments NT-proBNP (test code 4080 pg/mL See_Comment H [Autom ated = 4698169783) message] The system which generated this result transmitted reference range : <=450. The reference range was not used to interpret this result as normal/abnormal . ALYSSA (test code = ALYSSA) Biotin has been reported to cause a negative bias, interpret results relative to patient's use of biotin. Lab Interpretation Abnormal (test code = 49962-4) [facility] CenterPOCT GLUCOSE (AUTOMATED)2020-03-01 03:42:00 Test Item Value Reference Range Interpretation Comments POCT GLU (test code = 4965261399) 190 mg/dL 70-110 H Lab Interpretation (test code = Abnormal 16583-6) [facility] CenterTROPONIN [id number] 03:30:00 Test Item Value Reference Range Interpretation Comments TROPONIN I (test 0.098 ng/mL See_Comment H [Automated code = 8029392267) message] The system which generated this result [...] ? Lab Interpretation Abnormal (test code = 66716-5) [facility] CenterHEPATIC FUNCTION PANEL (45254) (ALB,T.PRO,BILI T,BU/BC,ALT,AST,ALK PHOS)2020-03-01 03:24:00 Test Item Value Reference Range Interpretation Comments TOTAL BILI (test code = 9139694928) 2.2 mg/dL 0.1-1.1 H BILI UNCON (test code = 4450521412) 2.0 mg/dL 0.1-1.1 H BILI CONJ (test code = 3793259215) 0.0 mg/dL 0-0.3 T PROTEIN (test code = 1399452864) 6.7 g/dL 6.3-8.2 ALBUMIN (test code = 1664424172) 4.0 g/dL 3.5-5 ALK PHOS (test code = 5795182981) 48 U/L 34-122 ALTv (test code = 1742-6) 18 U/L 5-50 AST(SGOT) (test code = 5486358949) 57 U/L 13-40 H Lab Interpretation (test code = Abnormal 10366-5) [facility] CenterPhosphorus [id number] 03:17:00 Test Item Value Reference Range Interpretation Comments PHOSPHORUS (test code = 3.1 mg/dL 2.5-5 Slig ht hemolysis 1720234305) Lab Interpretation (test Normal code = 27703-3) [facility] CenterPROTHROMBIN TIME / [id number] 03:08:00 Test Item Value Reference Range Interpretation Comments PROTIME PATIENT (test See_Comment [Auto mated message] code = 5964-2) The system [employer] generated this result transmitted ref erence range: 12.0 - 1 4.7 Seconds. The re ference range was not u sed to interpret this result as normal/abnor mal. INR (test code = 6301-6) Nor mal INR <1.1; Warfarin Therap eutic range 2.0 to 3. 0 or 2.5 to 3.5, dep ending upon the indica tions. Lab Interpretation (test Normal code = 58419-1) [facility] CenterCREATINE [id number] 03:01:00 Test Item Value Reference Range Interpretation Comments CK (test code = 9431509320) 68 U/L 33-194 Lab Interpretation (test code = Normal 51423-0) [facility] CenterURIC [id number] 02:41:00 Test Item Value Reference Range Interpretation Comments URIC ACID (test code = 0604420271) 2.3 mg/dL 3.6-8 L Lab Interpretation (test code = Abnormal 98960-4) [facility] CenterTHYROID STIMULATING [id number] 02:26:00 Test Item Value Reference Range Interpretation Comments TSH (test code = See_Comment [Automated message] 5773571747) The system [employer] generated this result transmitted ref erence range: 0.45 - 4 .70 mIU/L. The refe rence range was not u sed to interpret this result as normal/abnor mal. Lab Interpretation (test Normal code = 76593-4) [facility] CenterN-TERMINAL [id number] 02:04:00 Test Item Value Reference Range Interpretation Comments NT-proBNP (test code 4390 pg/mL See_Comment H [Autom ated = 6562742519) message] The system which generated this result transmitted reference range : <=450. The reference range was not used to interpret this result as normal/abnormal . ALYSSA (test code = ALYSSA) Biotin has been reported to cause a negative bias, interpret results relative to patient's use of biotin. Lab Interpretation Abnormal (test code = 46379-9) [facility] CenterMAGNESIUM2020-04-16 02:01:00 Test Item Value Reference Range Interpretation Comments MAGNESIUM (test code = 0311773839) 1.5 mg/dL 1.7-2.4 L Lab Interpretation (test code = Abnormal 10928-6) [facility] CenterLIPASE2020-04-16 00:22:00 Test Item Value Reference Range Interpretation Comments LIPASE (test code = 3056787999) 68 U/L 0-220 Lab Interpretation (test code = Normal 19316-6) [facility] CenterCORONAVIRUS COVID-19 [id number] 23:42:00 Test Item Value Reference Range Interpretation Comments SARS-CoV-2 (test code = Not Detected Not Detected 88408-1) ALYSSA (test code = ALYSSA) ID NOW COVID-19 Assay is an isothermal nucleic acid amplification test intended for the qualitative detection of nucleic acid from SARS-CoV-2 viral RNA in nasopharyngeal (BRANCH OFFICE ADMINISTRATOR) specimens. It is used under Emergency Use [...] indicated. Lab Interpretation Normal (test code = 57293-2) [facility] CenterXR CHEST 1 VW [id number] 23:26:02 No acute intrathoracic abnormality, specifically no radiographic findingsto suggest COVID-19 pneumonia. Disclaimer: Generally, the findings on chest imaging in COVID-19 are notspecific, and overlap with other infections, including influenza, H1N1,SARS and MERS. According to the Centers for Disease Control (CDC) and recent statement ofthe [employer], viral testing remains the [...] Disease Control (CDC) and recent statement ofthe [employer], viral testing remains the only specificmethod of diagnosis. Confirmation with the viral test is required, even ifradiologic findings are suggestive of COVID-19 on CXR or [place]. Preliminary Report Dictated by Resident: Radu Boo MD., have reviewed this study and agree with theabovereport.[facility] [id number] 22:59:00 Test Item Value Reference Range Interpretation Comments TROPONIN I (test 0.071 ng/mL See_Comment H [Automated code = 7759390103) message] The system which generated this result [...] ? Lab Interpretation Abnormal (test code = 58687-6) [facility] (NA, K, CL, CO2, GLUCOSE, BUN, CREATININE, CA)2020-02-29 22:48:00 Test Item Value Reference Range Interpretation Comments NA (test code = 141 mmol/L 135-145 9408496285) K (test code = 3.2 mmol/L 3.5-5 L 8285656338) CL (test code = 104 mmol/L 98-108 8809731735) CO2 TOTAL (test code = 25 mmol/L 23-31 2643909205) AGAP (test code = 2-16 6545039374) BUN (test code = 12 mg/dL 7-23 9911612206) GLUCOSE (test code = 250 mg/dL 70-110 H 0288285322) CREATININE (test code = 1.02 mg/dL 0.6-1.25 4344248561) CALCIUM (test code = 8.9 mg/dL 8.6-10.6 0301291631) eGFR Calculation mL/min/1.73m2 (Non-) (test code = 6078018292) eGFR Calculation mL/min/1.73m2 () (test code = 8129318355) ALYSSA (test code = ALYSSA) Association of [...] tests). Lab Interpretation Abnormal (test code = 42820-2) [facility] WITH [id number] 22:41:00 Test Item Value Reference Range Interpretation Comments WBC (test code = See_Comment [Automated 0990-2) message] The sy stem which generated this result transmitted reference range : 4.20 - 10.70 10*3/?L. The reference range was not used to interpret this result as normal/abnormal . RBC (test code = See_Comment L [Automated 209-8) message] The sy stem which generated this [...] RDW-SD (test code = 46.6 fL 38.5-51.6 55921-0) RDW-CV (test code = 14.6 % 12.1-15.4 788-0) PLT (test code = See_Comment [Automated 777-3) message] The sy stem which generated this result transmitted reference range : 150 - 328 10*3/ ?L. The reference r corey was not used to interpret this result as normal/abnormal . MPV (test code = 9.7 fL 9.8-13 L 20721-0) NRBC/100 WBC (test See_Comment [Automat ed code = 9207460002) message] The system which generated this result transmitted reference range : 0.0 - 10.0 /100 WBCs. The refer ence range was not u sed to interpret th is result as normal/abnormal . NRBC x10^3 (test code <0.01 See_Comment [Auto mated = 0633927327) message] The s ystem which generated this result transmitted reference range : 10*3/?L. The reference range was not used to interpret this result as normal/abnormal . GRAN MAT (NEUT) % 68.6 % (test code = 770-8) IMM GRAN % (test code 0.30 % = 3388513442) LYMPH % (test code = 18.6 % 736-9) MONO % (test code = 10.1 % 5905-5) EOS % (test code = 1.8 % 713-8) BASO % (test code = 0.6 % 706-2) GRAN MAT x10^3(ANC) 4.29 10*3/uL 1.99-6.95 (test code = 2906634234) IMM GRAN x10^3 (test <0.03 0-0.06 code = 5444040405) LYMPH x10^3 (test code 1.16 10*3/uL 1.09-3.23 = 731-0) MONO x10^3 (test code 0.63 10*3/uL 0.36-1.02 = 742-7) EOS x10^3 (test code = 0.11 10*3/uL 0.06-0.53 711-2) BASO x10^3 (test code 0.04 10*3/uL 0.01-0.09 = 704-7) Lab Interpretation Abnormal (test code = 51322-2) [facility] Acid Whole [id number] 22:38:00 Test Item Value Reference Range Interpretation Comments LACTIC ACID (test code = 1.88 mmol/L 0.3-2.6 9879365642) [facility]2020-01-17 18:18:00 Test Item Value Reference Range Interpretation Comments POCT GLU (test code = 7441086841) 290 mg/dL 70-110 H Lab Interpretation (test code = Abnormal 35070-3) [facility]TR[facility] [id number] 18:01:00 Test Item Value Reference Range Interpretation Comments TROPONIN I (test 0.065 ng/mL See_Comment H [Automated code = 8080953070) message] The system which generated this result [...] ? Lab Interpretation Abnormal (test code = 48927-9) [facility]2020-[facility] 17:10:00 Test Item Value Reference Range Interpretation Comments APTT Patient (test See_Comment H [Automat ed code = 3173-2) message] The system which generated this result transmitted reference range : 23 - 38 Seconds . The reference range was not used to interpr et this result as normal/abnormal . ALYSSA (test code = ALYSSA) The [facility] patient population mean normal value for aPTT is 30 seconds. Lab Interpretation Abnormal (test code = 12517-9) [facility]2020-01-17 11:59:00 Test Item Value Reference Range Interpretation Comments POCT GLU (test code = 3627004759) 185 mg/dL 70-110 H Lab Interpretation (test code = Abnormal 00151-3) [facility] CenterTR[facility] [id number] 11:23:00 Test Item Value Reference Range Interpretation Comments TROPONIN I (test 0.073 ng/mL See_Comment H [Automated code = 0027116432) message] The system which generated this result [...] ? Lab Interpretation Abnormal (test code = 09145-0) [facility] Metabolic Panel (NA, K, CL, CO2, GLUCOSE, BUN, CREATININE, CA)2020-01-17 11:16:00 Test Item Value Reference Range Interpretation Comments NA (test code = 136 mmol/L 135-145 1238327152) K (test code = 3.3 mmol/L 3.5-5 L 9145904553) CL (test code = 101 mmol/L 98-108 0316269708) CO2 TOTAL (test code = 26 mmol/L 23-31 2218842983) AGAP (test code = 2-16 0098077687) BUN (test code = 19 mg/dL 7-23 8127636990) GLUCOSE (test code = 227 mg/dL 70-110 H 7684010605) CREATININE (test code = 1.33 mg/dL 0.6-1.25 H 7030543018) CALCIUM (test code = 9.1 mg/dL 8.6-10.6 5756327629) eGFR Calculation mL/min/1.73m2 (Non-) (test code = 8561897240) eGFR Calculation mL/min/1.73m2 () (test code = 1453969317) ALYSSA (test code = ALYSSA) Association of [...] tests). Lab Interpretation Abnormal (test code = 87976-1) [facility]2020-[facility] 11:00:00 Test Item Value Reference Range Interpretation Comments APTT Patient (test See_Comment H [Automat ed code = 3173-2) message] The system which generated this result transmitted reference range : 23 - 38 Seconds . The reference range was not used to interpr et this result as normal/abnormal . ALYSSA (test code = ALYSSA) The [facility] patient population mean normal value for aPTT is 30 seconds. Lab Interpretation Abnormal (test code = 55233-0) [facility] CenterCBC WITH [id number] 10:43:00 Test Item Value Reference Range Interpretation Comments WBC (test code = See_Comment [Automated message] 6690-2) The system [employer] generated this result transmitted ref erence range: 4.20 - 1 0.70 10*3/?L. The re ference range was not u sed to interpret this result as normal/abnor mal. RBC (test code = See_Comment [Automated message] 369-8) The system [employer] generated this result transmitted ref erence range: [...] RDW-SD (test code 41.5 fL 38.5-51.6 = 43780-9) RDW-CV (test code 12.8 % 12.1-15.4 = 788-0) PLT (test code = See_Comment [Automated message] 017-3) The system [employer] generated this result transmitted ref erence range: 150 - 32 8 10*3/?L. The re ference range was not u sed to interpret this result as normal/abnor mal. MPV (test code = 10.7 fL 9.8-13 85753-3) NRBC/100 WBC (test See_Comment [Automat ed message] code = 6787255338) The syste m which generated this result transmitted ref erence range: 0.0 - 10 .0 /100 WBCs. The refer ence range was not u sed to interpret this result as normal/abnor mal. NRBC x10^3 (test <0.01 See_Comment [Automated message] code = 0767867946) The syste m which generated this result transmitted ref erence range: 10*3/?L. The reference range was not used to interpr et this result as normal/abnormal . GRAN MAT (NEUT) % 56.1 % (test code = 770-8) IMM GRAN % (test 0.30 % code = 3858969306) LYMPH % (test code 29.5 % = 736-9) MONO % (test code 9.9 % = 5905-5) EOS % (test code = 3.3 % 713-8) BASO % (test code 0.9 % = 706-2) GRAN MAT 3.73 10*3/uL 1.99-6.95 x10^3(ANC) (test code = 4076077969) IMM GRAN x10^3 <0.03 0-0.06 (test code = 7368189200) LYMPH x10^3 (test 1.96 10*3/uL 1.09-3.23 code = 731-0) MONO x10^3 (test 0.66 10*3/uL 0.36-1.02 code = 742-7) EOS x10^3 (test 0.22 10*3/uL 0.06-0.53 code = 711-2) BASO x10^3 (test 0.06 10*3/uL 0.01-0.09 code = 704-7) [facility] GLUCOSE (AUTOMATED)2020-01-17 01:49:00 Test Item Value Reference Range Interpretation Comments POCT GLU (test code = 0671773057) 305 mg/dL 70-110 H Lab Interpretation (test code = Abnormal 36109-5) [facility] GLUCOSE (AUTOMATED)2020-01-17 00:01:00 Test Item Value Reference Range Interpretation Comments POCT GLU (test code = 0868291254) 271 mg/dL 70-110 H Lab Interpretation (test code = Abnormal 86881-0) [facility]2020-[facility]-02 22:23:00 Test Item Value Reference Range Interpretation Comments APTT Patient (test See_Comment H [Automat ed code = 3173-2) message] The system which generated this result transmitted reference range : 23 - 38 Seconds . The reference range was not used to interpr et this result as normal/abnormal . ALYSSA (test code = ALYSSA) The [facility] patient population mean normal value for aPTT is 30 seconds. Lab Interpretation Abnormal (test code = 12581-5) [facility] CenterTR[facility]IN [id number] 21:22:00 Test Item Value Reference Range Interpretation Comments TROPONIN I (test 0.061 ng/mL See_Comment H [Automated code = 3841640780) message] The system which generated this result [...] ? Lab Interpretation Abnormal (test code = 66596-2) [facility] GLUCOSE (AUTOMATED)2020-01-16 17:37:00 Test Item Value Reference Range Interpretation Comments POCT GLU (test code = 4020061353) 271 mg/dL 70-110 H Lab Interpretation (test code = Abnormal 70140-9) [facility]2020-[facility] 12:47:00 Test Item Value Reference Range Interpretation Comments APTT Patient (test See_Comment HH [Automat ed code = 3173-2) message] The system which generated this result transmitted reference range : 23 - 38 Seconds . The reference range was not used to interpr et this result as normal/abnormal . ALYSSA (test code = ALYSSA) The [facility] patient population mean normal value for aPTT is 30 seconds. Lab Interpretation Abnormal (test code = 15773-2) [facility] CenterTROPONIN [id number] 12:35:00 Test Item Value Reference Range Interpretation Comments TROPONIN I (test 0.074 ng/mL See_Comment H [Automated code = 2769405399) message] The system which generated this result [...] ? Lab Interpretation Abnormal (test code = 11638-8) [facility] CenterLIPID PANEL (54068)(TOTAL CHOLESTEROL, TRIGLYCERIDES, HDL)2020-01-16 12:23:00 Test Item Value Reference Range Interpretation Comments CHOL (test code = 95 mg/dL 120-200 L 6931735335) HDL (test code = 44 mg/dL >40 4249702829) HDLC RATIO (test code = See_Comment [Au tomated message] 9671834200) The system [employer] generated this result transmitted ref erence range: <=5.0. T he reference range was not used to int erpret this result as normal/abnormal . TRIG (test code = 89 mg/dL 30-170 8727385890) LDL CHOL (test code = 33 mg/dL See_Comment [Auto mated message] 97626-1) The system [employer] generated this result transmitted ref erence range: <=160. T he reference range was not used to int erpret this result as normal/abnormal . VLDL (test code = 18 mg/dL 5-60 9049509763) Lab Interpretation (test Abnormal code = 41794-0) [facility] CenterGlycosylated Hemoglobin (A1C)2020-01-16 09:03:00 Test Item Value [...] Indicated Lab Interpretation Abnormal (test code = 31286-9) [facility] CenterCritical [id number] 05:48:18Charanjit Heck MD ? ? 01/15/2020 11:48 [...] review of old charts and examination of patientUnHouston [facility] HospitalProthrombin Time (PT) / [id number] 05:28:00 Test Item Value Reference Range Interpretation [...] tions. Lab Interpretation (test Normal code = 46187-7) [facility]2020-[facility]-02 05:27:00 Test Item Value Reference Range Interpretation Comments APTT Patient (test See_Comment [Automat ed code = 3173-2) message] The system which generated this result transmitted reference range : 23 - 38 Seconds . The reference range was not used to interpr et this result as normal/abnormal . ALYSSA (test code = ALYSSA) The [facility] patient population mean normal value for aPTT is 30 seconds. Lab Interpretation Normal (test code = 28082-1) [facility] CenterTroponin [id number] 05:11:00 Test Item Value Reference Range Interpretation Comments TROPONIN I (test 0.075 ng/mL See_Comment H [Automated code = 3804154576) message] The system which generated this result [...] ? Lab Interpretation Abnormal (test code = 97626-6) [facility] CenterN-TERMINAL [id number] 05:08:00 Test Item Value Reference Range Interpretation Comments NT-proBNP (test code 896 pg/mL See_Comment H [Autom ated = 2555501222) message] The system which generated this result transmitted reference range : <=450. The reference range was not used to interpret this result as normal/abnormal . ALYSSA (test code = ALYSSA) Biotin has been reported to cause a negative bias, interpret results relative to patient's use of biotin. Lab Interpretation Abnormal (test code = 47052-1) [facility] CenterBasi Metabolic Panel (NA, K, CL, CO2, GLUCOSE, BUN, CREATININE, CA)2020-01-16 04:59:00 Test Item Value Reference Range Interpretation Comments NA (test code = 136 mmol/L 135-145 2846730557) K (test code = 4.0 mmol/L 3.5-5 6597350200) CL (test code = 101 mmol/L 98-108 6369246094) CO2 TOTAL (test code = 27 mmol/L 23-31 2384384329) AGAP (test code = 2-16 8043273692) BUN (test code = 17 mg/dL 7-23 9816823770) GLUCOSE (test code = 445 mg/dL 70-110 H 6775327572) CREATININE (test code = 1.29 mg/dL 0.6-1.25 H 6074661094) CALCIUM (test code = 8.8 mg/dL 8.6-10.6 6815749612) eGFR Calculation mL/min/1.73m2 (Non-) (test code = 1549710394) eGFR Calculation mL/min/1.73m2 () (test code = 7872940657) ALYSSA (test code = ALYSSA) Association of [...] tests). Lab Interpretation Abnormal (test code = 45641-7) [facility] CenterHepatic Function Panel (ALB, T.PRO, BILI T, BU/BC, ALT, AST, ALK PHOS)2020-01-16 04:59:00 Test Item Value Reference Range Interpretation Comments TOTAL BILI (test code = 0693698628) 1.3 mg/dL 0.1-1.1 H BILI UNCON (test code = 5259787366) 1.1 mg/dL 0.1-1.1 BILI CONJ (test code = 9839560600) 0.0 mg/dL 0-0.3 T PROTEIN (test code = 3692120403) 6.3 g/dL 6.3-8.2 ALBUMIN (test code = 7721422974) 3.9 g/dL 3.5-5 ALK PHOS (test code = 9268709919) 67 U/L 34-122 ALTv (test code = 1742-6) 15 U/L 5-50 AST(SGOT) (test code = 2063995260) 23 U/L 13-40 Lab Interpretation (test code = Abnormal 76201-0) [facility] 1 [id number] 04:54:13Impression: Moderate cardiomegaly without acute pulmonary process. RL: 460 AFC: [id number] Indication: Chest pain Comparison: None available Findings: Single AP view of the chest. The cardiopericardial silhouette ismoderately enlarged. The lungs are clear bilaterally. The visualized bonythorax is intact. A thoracic neurostimulator device is in place. [facility], Radiant Results Inft User - 01/15/2020 10:55 PM CSTIndication: Chest painComparison: None availableFindings: Single AP view of the chest. The cardiopericardial silhouette ismoderately enlarged. The lungs are clear bilaterally. The visualized bonythorax is intact. A thoracic neurostimulator device is in place.IMPRESSIONImpression:Moderate cardiomegaly without acute pulmonary process.RL: 460AFC: [id number] signed by Esperanza Rosado MD, PhD at 01/15/2020 10:54 [facility]Un[facility] WITH [id number] 04:51:00 Test Item Value Reference Range Interpretation [...] RDW-SD (test code = 40.7 fL 38.5-51.6 24514-9) RDW-CV (test code = 12.8 % 12.1-15.4 788-0) PLT (test code = See_Comment L [Automated 777-3) message] The sy stem which generated this result transmitted reference range : 150 - 328 10*3/ ?L. The reference r corey was not used to interpret this result as normal/abnormal . MPV (test code = 10.6 fL 9.8-13 96587-6) IPF % (test code = 2.8 % 1.2-10.7 Platelet count 2586685923) measured by fluorescence method. NRBC/100 WBC (test See_Comment [Automat ed code = 2488651690) message] The system which generated this result transmitted reference range : 0.0 - 10.0 /100 WBCs. The refer ence range was not u sed to interpret th is result as normal/abnormal . NRBC x10^3 (test code <0.01 See_Comment [Auto mated = 1110592878) message] The s ystem which generated this result transmitted reference range : 10*3/?L. The reference range was not used to interpret this result as normal/abnormal . GRAN MAT (NEUT) % 56.0 % (test code = 770-8) IMM GRAN % (test code 0.20 % = 1466997681) LYMPH % (test code = 30.5 % 736-9) MONO % (test code = 9.6 % 5905-5) EOS % (test code = 2.8 % 713-8) BASO % (test code = 0.9 % 706-2) GRAN MAT x10^3(ANC) 2.98 10*3/uL 1.99-6.95 (test code = 4992606642) IMM GRAN x10^3 (test <0.03 0-0.06 code = 9219346408) LYMPH x10^3 (test code 1.62 10*3/uL 1.09-3.23 = 731-0) MONO x10^3 (test code 0.51 10*3/uL 0.36-1.02 = 742-7) EOS x10^3 (test code = 0.15 10*3/uL 0.06-0.53 711-2) BASO x10^3 (test code 0.05 10*3/uL 0.01-0.09 = 704-7) Lab Interpretation Abnormal (test code = 99171-8) [facility]"
[2022-04-15] MEDS ORDERED: ONDANSETRON 4 MG/2 ML VIAL ONE (21:09)
[2022-04-15] MEDS ORDERED: LIDOCAINE 4% PATCH ONE (21:09)
[2022-04-15] MEDS ORDERED: MORPHINE 4 MG/ML SYR ONE (21:09)
--- NOTE | 2022-04-15 21:26 | EDPHYS ---
Physician Documentation [facility] Name: Demetrius Sarmiento Age: 81 yrs Sex: Male : 1940 Arrival Date: 04/15/2022 Time: 19:29 Bed 18 Private MD: ED Physician Brett Lema HPI: 04/15 20:28 This 81 yrs old Male presents to ER via Wheelchair with complaints of Back Pain. pm1 20:28 The patient presents with pain that is chronic, with no known mechanism of injury. The pm1 symptoms are located in the low back. The pain radiates to the left leg. Associated signs and symptoms: Pertinent negatives: numbness, tingling, weakness. The problem was sustained from a chronic condition. Modifying factors: The patient symptoms are alleviated by nothing, the patient symptoms are aggravated by movement. Severity of symptoms: in the emergency department the symptoms are unchanged. The patient has experienced similar episodes in the past, chronically. The patient has been recently seen at the [facility] Emergency Department, this week, for similar complaints dx lumbago with sciatica. Historical: - Allergies: 20:16 No Known Allergies; ll3 - PMHx: 20:16 diabetes mellitus; Hypercholesterolemia; Hypertensive disorder; CA; sciatica; ll3 - PSHx: 20:16 None; ll3 - Immunization history:: Client reports receiving the 2nd dose of the Covid vaccine. - Social history:: Smoking status: Patient denies any tobacco usage or history of. ROS: 20:28 Constitutional: Negative for fever, chills, and weight loss, Cardiovascular: Negative pm1 for chest pain, palpitations, and edema, Respiratory: Negative for shortness of breath, cough, wheezing, and pleuritic chest pain. 20:28 Abdomen/GI: Negative for abdominal pain, nausea, vomiting, diarrhea, and constipation. 20:28 : Negative for injury, bleeding, discharge, and swelling, MS/Extremity: Negative for injury and deformity, Skin: Negative for injury, rash, and discoloration. 20:28 Neuro: Negative for headache, weakness, numbness, tingling, and seizure. 20:28 Back: Positive for of the low back area. 20:28 All other systems are negative. Exam: 20:28 Constitutional: This is a well developed, well nourished patient who is awake, alert, pm1 and in no acute distress. Head/Face: Normocephalic, atraumatic. 20:28 Skin: Warm, dry with normal turgor. Normal color with no rashes, no lesions, and no evidence of cellulitis. MS/ Extremity: Pulses equal, no cyanosis. Neurovascular intact. Full, normal range of motion. 20:28 Cardiovascular: Exam negative for acute changes, Rate: normal, Rhythm: regular, Pulses: no pulse deficits are appreciated. 20:28 Respiratory: Exam negative for acute changes, respiratory distress, shortness of breath. 20:28 Abdomen/GI: Exam negative for acute changes, Inspection: abdomen appears normal, Palpation: abdomen is soft and non-tender, in all quadrants. 20:28 Back: pain, that is moderate, of the focal point to left gluteus jeanette that reproduces his pain that radiates down left leg. 20:28 Neuro: Exam negative for acute changes, Orientation: is normal, Mentation: is normal, Motor: is normal, moves all fours. Vital Signs: 20:13 BP 128 / 64; Pulse 105; Resp 20; Temp 97.7(TE); Pulse Ox 100% on R/A; Weight 77.11 kg ll3 (R); Height 5 ft. 7 in. (170.18 cm) (R); Pain 10/10; 21:38 Pain 5/10; ag7 20:13 Body Mass Index 26.63 (77.11 kg, 170.18 cm) ll3 MDM: 20:25 Patient medically screened. pm1 21:25 Data reviewed: vital signs. Data interpreted: Pulse oximetry: on room air is 100 %. pm1 Interpretation: normal. Counseling: I had a detailed discussion with the patient and/or guardian regarding: the historical points, exam findings, and any diagnostic results supporting the discharge/admit diagnosis, the need for outpatient follow up, to return to the emergency department if symptoms worsen or persist or if there are any questions or concerns that arise at home. 04/15 20:28 Order name: IV Saline Lock; Complete Time: 20:35 pm1 Administered Medications: 21:05 Drug: Zofran (Ondansetron) 4 mg Route: IVP; Site: right antecubital; ag7 21:38 Follow up: Response: No adverse reaction ag7 21:05 Drug: morphine 4 mg Route: IVP; Infused Over: 4 mins; Site: right antecubital; ag7 21:38 Follow up: Pain 5/10 Adult; Response: No adverse reaction ag7 21:11 Drug: Lidoderm Patch 5 % (700 mg/patch) 1 patches {Note: left posterior chest.} Route: ag7 Topical; Site: affected area; 21:38 Follow up: Response: No adverse reaction; Pain is decreased ag7 Disposition: 04/16 07:17 Co-signature as Attending Physician, Brett Lema MD. [facility] Disposition Summary: 04/15/22 21:25 Discharge Ordered Location: Home pm1 Problem: new pm1 Symptoms: have improved pm1 Condition: Stable pm1 Diagnosis - Lumbago with sciatica, left side pm1 - Other chronic pain pm1 Followup: pm1 - With: Emergency Department - When: As needed - Reason: Worsening of condition Followup: pm1 - With: Private Physician - When: 2 - 3 days - Reason: Recheck today's complaints, Continuance of care, Re-evaluation by your physician Discharge Instructions: - Discharge Summary Sheet pm1 - Chronic Back Pain pm1 - Sciatica pm1 Forms: - Medication Reconciliation Form pm1 - Thank You Letter pm1 - Antibiotic Education pm1 - Prescription Opioid Use pm1 Signatures: Shukri Martinez, MECHE [employer] FURNACE KEEPER pm1 Brett Lema MD MD [facility] Yan Marrero, HERBIE RN 3 Fern Wall RN RN 7
--- NOTE | 2022-04-15 21:26 | ER ---
Nurse's Notes [facility] Name: Demetrius Sarmiento Age: 81 yrs Sex: Male : 1940 Arrival Date: 04/15/2022 Time: 19:29 Bed 18 Private MD: Diagnosis: Lumbago with sciatica, left side;Other chronic pain Presentation: 04/15 20:13 Chief complaint: Patient states: "I have been here for the past 2 days, my back is ll3 hurting and noting helps", c/o left sided back pain 08/25, since thursday. Coronavirus screen: Vaccine status: Patient reports receiving the 2nd dose of the covid vaccine. At this time, the client does not indicate any symptoms associated with coronavirus-19. Ebola Screen: No symptoms or risks identified at this time. Initial Sepsis Screen: Does the patient meet any 2 criteria? No. Patient's initial sepsis screen is negative. Does the patient have a suspected source of infection? No. Patient's initial sepsis screen is negative. Risk Assessment: Do you want to hurt yourself or someone else? Patient reports no desire to harm self or others. Onset of symptoms was April 13, 2022. Care prior to arrival: None. 20:13 Method Of Arrival: Wheelchair ll3 20:13 Acuity: LANCE 3 ll3 Triage Assessment: 20:16 General: Appears comfortable, Behavior is cooperative, agitated, anxious, Reports Back ll3 pain. Pain: Complains of pain in left low back Pain currently is 10 out of 10 on a pain scale. Pain began 2-3 days ago. Current management - is no interventions. Neuro: Level of Consciousness is awake, alert, obeys commands, Oriented to person, place, time, situation. Musculoskeletal: Circulation, motion, and sensation intact. Reports pain in back since Thursday. Historical: - Allergies: 20:16 No Known Allergies; ll3 - PMHx: 20:16 diabetes mellitus; Hypercholesterolemia; Hypertensive disorder; [place]; sciatica; ll3 - PSHx: 20:16 None; ll3 - Immunization history:: Client reports receiving the 2nd dose of the Covid vaccine. - Social history:: Smoking status: Patient denies any tobacco usage or history of. Screenin:18 Abuse screen: Denies threats or abuse. Nutritional screening: No deficits noted. ag7 Tuberculosis screening: No symptoms or risk factors identified. Fall Risk No fall in past 12 months (0 pts). No secondary diagnosis (0 pts). No IV (0 pts). Ambulatory Aid- None/Bed Rest/Nurse Assist (0 pts). Gait- Impaired (20 pts.). Mental Status- Oriented to own ability (0 pts). Total Torres Fall Scale indicates No Risk (0-24 pts). Assessment: 20:16 General: Appears in no apparent distress. Behavior is cooperative, fussy. Pain: ag7 Complains of pain in posterior chest, back and left leg Pain does not radiate. Pain currently is 10 out of 10 on a pain scale. Quality of pain is described as aching, sharp, Pain began suddenly, Is chronic, Alleviated by nothing. Neuro: Level of Consciousness is awake, alert, obeys commands, Oriented to Appropriate for age. Cardiovascular: Patient's skin is warm and dry. Respiratory: Airway is patent Trachea midline Respiratory effort is even, unlabored, Respiratory pattern is regular, symmetrical. Musculoskeletal: Range of motion: limited in left hip and left knee Reports pain in back. 21:38 Reassessment: Patient and/or family updated on plan of care and expected duration. Pain ag7 level reassessed. Patient is alert, oriented x 3, equal unlabored respirations, skin warm/dry/pink. Patient states feeling better. Patient states symptoms have improved. Vital Signs: 20:13 BP 128 / 64; Pulse 105; Resp 20; Temp 97.7(TE); Pulse Ox 100% on R/A; Weight 77.11 kg ll3 (R); Height 5 ft. 7 in. (170.18 cm) (R); Pain 10/10; 21:38 Pain 5/10; ag7 20:13 Body Mass Index 26.63 (77.11 kg, 170.18 cm) ll3 ED Course: 19:29 Patient arrived in ED. ja2 20:11 Fern Wall, HERBIE is Primary Nurse. ag7 20:13 Shukri Martinez NP is PHCP. pm1 20:13 Brett Lema MD is Attending Physician. pm1 20:16 Triage completed. ll3 20:16 Arm band placed on Patient placed in an exam room, on a stretcher, on pulse oximetry. ll3 20:18 Patient has correct armband on for positive identification. Bed in low position. Call ag7 light in reach. Side rails up X 1. 20:19 No provider procedures requiring assistance completed. ag7 20:35 Inserted saline lock: 20 gauge in right antecubital area, using aseptic technique. zm 21:39 IV discontinued, intact, bleeding controlled, No redness/swelling at site. Pressure ag7 dressing applied. Administered Medications: 21:05 Drug: Zofran (Ondansetron) 4 mg Route: IVP; Site: right antecubital; ag7 21:38 Follow up: Response: No adverse reaction ag7 21:05 Drug: morphine 4 mg Route: IVP; Infused Over: 4 mins; Site: right antecubital; ag7 21:38 Follow up: Pain 5/10 Adult; Response: No adverse reaction ag7 21:11 Drug: Lidoderm Patch 5 % (700 mg/patch) 1 patches {Note: left posterior chest.} Route: ag7 Topical; Site: affected area; 21:38 Follow up: Response: No adverse reaction; Pain is decreased ag7 Medication: 20:19 VIS not applicable for this client. ag7 Outcome: 21:25 Discharge ordered by MD. pm1 21:39 Discharged to home via wheelchair. ag7 21:39 Condition: stable 21:39 Discharge instructions given to patient, Instructed on discharge instructions, follow up and referral plans. Demonstrated understanding of instructions, follow-up care. 21:39 Patient left the ED. ag7 Signatures: Shukri Martinez NP TALENT ANALYST pm1 Cintia Guillory 2 Yan Marrero RN RN 3 Fern Wall RN RN ag7 Camila Zhu
[2022-04-15 21:49] VITALS: BP 128/64; TEMP 97.7; O2SAT 100
== END 2022-04-15 21:39 | disposition home or self-care (01) ==
LOC: ER 19:26
DX: M54.42 Lumbago with sciatica, left side (principal); G89.29 Other chronic pain; E11.9 Type 2 diabetes mellitus without complications; I10 Essential (primary) hypertension; I25.2 Old myocardial infarction
CPT/HCPCS: 96375; 96374; 99283; J2001; J2405

== ENCOUNTER 2022-04-17 17:36 | Emergency (ER) | payer OTHER ==
--- OUTSIDE RECORDS SUMMARY | 2022-04-17 17:47 | XMS REPORT | Continuity of Care Document ---
:1940 Demographics Address [address] [place] [address] Mobile Email Address DECLINED [phone] Preferred Language Slovak Marital Status Unknown Synagogue Affiliation Unknown Race Unknown Additional Race(s) Unavailable Unavailable White Ethnic Group Unknown Author Organization [facility] t Address [address] [place] [address] Care Team Providers Name Role Phone Andres Briscoe DO Primary Care Physician Denny Attending Clinician Unavailable Millender Attending Clinician Unavailable ANDREWS, S Attending Clinician Unavailable Rajinder PAC, S Attending Clinician DANIELLE MURGUIA Attending Clinician Unavailable Lulú AGUILAR [...] Clinician Unavailable Sharon HARRY Admitting Clinician Unavailable Maribell_P Admitting Clinician Unavailable Julio Cesar WOOTEN Admitting Clinician JULIO CESAR Admitting Clinician Unavailable Steven WOOTEN Admitting Clinician STEVEN Admitting Clinician Unavailable Payers Payer Name Policy Type Policy Number Effective Date Expiration Date Stacy torres [facility] JABIER [id number] 2020 00:00:00 [facility] [id number] 2019 DUAL COMPLETE HMO 00:00:00 MEDICAID OF [place] [id number] 2018 00:00:00 Problems Condition Condition Condition Status Onset Resolution Last Treating Co mments Source Name Details Category Date Date Treatment Clinician Date Unstable Unstable Disease Active 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 5-07 ity of 00:00: 00 Medical Branch ALBA (acute ALBA (acute Disease Active 2020- U nivers kidney kidney 4-21 ity of injury) injury) 00:00: [place] 00 Medical Branch Chest pain Chest pain Disease Active 2020-0 U nivers 4-21 ity of 00:00: [place] 00 Medical Branch Chest pain Chest pain Disease Active 2020-0 U 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 4-15 it y of 00:00: [place] 00 Medical Branch 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 3-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 00:00: [place] and and 00 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 2019- U nivers lobe lobe 1-06 ity of pneumonia pneumonia 00:00: [facility] 00 Medical Branch PNA PNA Disease Active 2019- Univers (pneumonia (pneumonia 0-25 it y of ) ) 00:00: [place] 00 Medical Branch Acute on Acute on Disease Active 2018-11 Unive rs chronic chronic 0-25 ity of combined combined 00:00: [place] systolic systolic 00 Medica l and and Branch 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 Dyspnea Dyspnea Disease Active 2019- Univers 0-23 ity of 00:00: [place] 00 Medical Branch CHF CHF Disease Active 2019- Univers exacerbati exacerbati 2-17 it y of on on 00:00: [place] 00 Medical Branch Essential Essential Disease Active 2019- Uni vers hypertensi hypertensi 2-17 it y of on on 00:00: [place] 00 Medical Branch 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 2-17 ity of mellitus [...] 00:00: [place] involving involving 00 Medi birdie [place] 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 00:00: [place] disease disease 00 Medical Branch Coronary Coronary Disease Active Unive rs artery artery 1-27 ity of disease disease 00:00: [place] involving involving 00 Medi birdie [place] Branch 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 [...] No Known DA Active U [facility] Allergie -23 Clear s 00:00: [place] 00 [facility] NO KNOWN Drug Active Univers ALLERGIE Class ity of S [facility] Social History Social Habit Start Date Stop Date Quantity Comments Source History of tobacco User of [facility] sity of use smokeless [facility] tobacco [place] Exposure to 2022-04-06 2022-04-16 Not sure University SARS-CoV-2 (event) 00:00:00 22:24:00 [facility] Alcohol intake 2022-03-01 2022-03-01 Current University of 00:00:00 00:00:00 non-drinker of [facility] alcohol [place] (finding) Cigarettes smoked 2018-12-11 2018-12-11 [facility] ity of current (pack per 00:00:00 00:00:00 [facility] ) - Reported Branch Cigarette 2018-12-11 2018-12-11 University of pack-years 00:00:00 00:00:00 [facility] Tobacco use and 2018-12-11 2018-12-11 Former user Universi ty of exposure 00:00:00 00:00:00 [facility] Sex Ass[birth year] At [birth year] Universit y of 00:00:00 00:00:00 [facility] Smoking Status Start Date Stop Date Source [...] 1 dose, On Medi birdie 25 mcg [facility] 03/01/22 at 1145, Routine cyclobenzap No 10mg 10 mg, Uni vers rine 03-0116 Oral, ity of (FLEXERIL) 14:00: 12:59 ONCE, 1 [place] tablet 10 00 :00 dose, On Medica l mg [facility] 4/16/22 at 0900, Routine HYDROcodone 2021- No 1{tbl} 1 tablet, Univers -acetaminop -16 -16 Oral, ity of hen (NORCO 14:00: 12:59 ONCE, 1 [place] 5) 5-325 mg 00 :00 dose, On Medi birdie tablet 1 Sat Branch tablet 03/01/22 at 0900, [place]AMA dexamethaso 2021- No 10mg 10 mg, Uni vers ne sod phos 03-01-16 Oral, ity of PF 14:00: 13:00 ONCE, 1 [place] injection 00 :00 dose, On Medica l 10 mg Sat Branch 03/01/22 at 0900, 1 mL cyclobenzap Yes [id number] 10mg Take 1 Univers rine 10 mg 4-16 tablet by ity of tablet 00:00: mouth 3 [place] 00 (three) Medical times Branch daily as needed for Muscle Spasms. cyclobenzap Yes [id number] 10mg Take 1 Univers rine 10 mg 4-16 tablet by ity of tablet 00:00: mouth 3 [place] 00 (three) Medical times Branch daily as needed for Muscle Spasms. aspirin 81 2020-11- No [id number] 81mg Take 1 Univers mg chewable 2-04 12- tablet by it y of tablet 00:00: 05:59 mouth [place] 00 :00 daily for Medical 30 days. Branch clopidogreL 2020-11- No [id number] 75mg Take 1 Univers 75 mg 2-04 12- tablet by ity of tablet 00:00: 05:59 mouth [place] 00 :00 daily for Medical 30 days. Branch furosemide 2020-11- No [id number] 20mg Take 1 Univers 20 mg 2-04 12- tablet by ity of tablet 00:00: 05:59 mouth [place] 00 :00 daily for Medical 30 days. Branch aspirin 81 2020-11- No [id number] 81mg Take 1 Univers mg chewable 2-04 12- tablet by it y of tablet 00:00: 05:59 mouth [place] 00 :00 daily for Medical 30 days. Branch clopidogreL 2020-11- No [id number] 75mg Take 1 Univers 75 mg 2-19 - tablet by ity of tablet 00:00: 05:59 mouth [place] 00 :00 daily for Medical 30 days. Branch furosemide 2020-11- No [id number] 20mg Take 1 Univers 20 mg 01-04 tablet by ity of tablet 00:00: 05:59 mouth [place] 00 :00 daily for Medical 30 days. Branch aspirin 81 2020-11- No [id number] 81mg Take 1 Univers mg chewable 01-04 tablet by it y of tablet 00:00: 05:59 mouth [place] 00 :00 daily for Medical 30 days. Branch clopidogreL 2020-11- No [id number] 75mg Take 1 Univers 75 mg 01-04 tablet by ity of tablet 00:00: 05:59 mouth [place] 00 :00 daily for Medical 30 days. Branch furosemide 2020-11- No [id number] 20mg Take 1 Univers 20 mg 01-04 [...] by mouth ity of tablet 18:25: at [place] 21 bedtime. Medical Branch trazodone 2020-11 Yes [...] 2-18 by mouth ity of 18:25: at [place] 21 bedtime. Medical Branch atorvastati 2020-11 Yes 40mg Take 40 mg Univers n 40 mg 2-18 by mouth ity of tablet 18:25: at [place] 21 bedtime. Medical Branch trazodone 2020-11 Yes [...] 2-18 by mouth ity of 18:25: at [place] [address] bedtime. Medical Branch atorvastati 2020-11 Yes 40mg Take 40 mg Univers n 40 mg 2-18 by mouth ity of tablet 18:25: at [place] 21 bedtime. Medical Branch metoprolol 2020-11 Yes [...] Until Discontinu ed, Routine QUEtiapine 2020-11 Yes [id number] 25mg Take 1 Univers 25 mg 2-18 tablet by ity of tablet 00:00: mouth at [place] 00 bedtime as Medical needed Branch (agitation /insomnia) . QUEtiapine 2020-11 Yes [id number] 25mg Take 1 Univers 25 mg 2-18 tablet by ity of tablet 00:00: mouth at [place] 00 bedtime as Medical needed Branch (agitation /insomnia) . QUEtiapine 2020-11 Yes [id number] 25mg Take 1 Univers 25 mg 2-18 tablet by ity of tablet 00:00: mouth at [place] 00 bedtime as Medical needed Branch (agitation /insomnia) . QUEtiapine 2020-11 Yes [id number] 25mg Take 1 Univers 25 mg 2-18 tablet by ity of tablet 00:00: mouth at [place] 00 bedtime as Medical needed Branch (agitation /insomnia) . QUEtiapine 2020-11 Yes [id number] 25mg Take 1 Univers 25 mg 2-18 tablet by ity of tablet 00:00: mouth at [place] 00 bedtime as Medical needed Branch (agitation /insomnia) . isosorbide 2020-11- No [id number] 60mg Take 1 Univers mononitrate 2-18 01-18 tablet by it y of 60 mg 24 hr 00:00: 05:59 mouth 2 [place] tablet 00 :00 (two) Medical times Branch daily for 30 days. metoprolol 2020-11- No [id number] 37.5mg Take 1.5 Univers succinate 2-18 01-18 tablets by ity of XL 25 mg 24 00:00: 05:59 mouth 2 [place] hr tablet 00 :00 (two) Medical times Branch daily for 30 days. isosorbide 2020-11- No [id number] 60mg Take 1 Univers mononitrate 2-18 01-18 tablet by it y of 60 mg 24 hr 00:00: 05:59 mouth 2 [place] tablet 00 :00 (two) Medical times Branch daily for 30 days. metoprolol 2020-11 No [id number] 37.5mg Take 1.5 Univers succinate -18 - tablets by ity of XL 25 mg 24 00:00: 05:59 mouth 2 [place] hr tablet 00 :00 (two) Medical times Branch daily for 30 days. isosorbide 2020-11- No [id number] 60mg Take 1 Univers mononitrate 18 - tablet by it y of 60 mg 24 hr 00:00: 05:59 mouth 2 [place] tablet 00 :00 (two) Medical times Branch daily for 30 days. metoprolol 2020-11 No [id number] 37.5mg Take 1.5 Univers succinate 01-03 tablets [...] at 0830, Until Discontinu ed, Routine metoprolol 2020-11 No 25mg 25 mg, Univ ers succinate [...] mg 03:00: First dose [place] 00 on [facility] Medical 10/31/21 Branch at 2100, Until Discontinu ed, Routine atorvastati 2020-11 Yes 40mg 40 mg, Univ ers n (LIPITOR) 2-17 Oral, QHS, it y of tablet 40 03:00: First dose [place] mg 00 on [facility] Medical 10/31/21 Branch at 2100, Until Discontinu ed, Routine clopidogreL 2020-11 Yes 75mg 75 mg, Univ ers (PLAVIX) 2-16 Oral, ity of tablet 75 23:30: DAILY, [place] mg 00 First dose Medical on [facility] Branch 10/31/21 at 1730, Until Discontinu ed, Routine sulfur 2020-11- No [id number] 5mL 5 mL, Unive rs hexafluorid -10-31 [...] First dose Medi birdie 120 mg on [facility] Branch 10/31/21 at 0900, Until Discontinu ed, Routine Sliding 2020-11 Yes Subcutaneo Univ ers Scale 2-16 us, AC+HS, ity of Insulin-Reg 13:30: First dose [place] ular + Fsbg 00 on [facility] Medica l Testing 10/31/21 Branch at 0730, Until Discontinu ed, Routine enoxaparin 2020-11- No 1mg/kg 80 mg Uni vers (LOVENOX) 01-01-18 (rounded ity o f injection 09:00: 14:17 from 78 mg [place] 80 mg 00 :35 = 1 mg/kg Medical ?78 kg), Branch Subcutaneo us, Q24H, First dose on [place] 10/31/21 at 0300, Until Discontinu ed, Routine aspirin 2020-11- No 325mg 325 mg, Unive rs tablet 325 2-16 12-16 Oral, ity of mg 08:45: 08:15 ONCE, 1 [place] 00 :00 dose, On Medical [facility]hav[facility] Branch 10/31/21 at 0245, Routine glucagon 2020-11 Yes 1mg 1 mg, Univers (GLUCAGEN 2-16 Intramuscu ity of DIAGNOSTIC 08:16: [place], PRN, [place] KIT) 15 Starting Medical injection 1 on [facility] Branch mg 10/31/21 at 0216, Until [...] 2 mg, Slow Un mel injection 2 01-01 1217 IV Push, ity of mg 07:36: 05:31 Q4HPRN, [place] 09 :07 Starting Medical on [facility] Branch 10/31/21 at 0136, Until [place] 10/31/21 at 2331, Routine, Pain (scale 7-10) nitroglycer 2020-11 Yes .4mg 0.4 mg, Uni vers in -16 Sublingual ity of (NITROSTAT) 05:32: , Q5MIN [place] sublingual 22 PRN, Medical tablet 0.4 Starting Branc h mg on Thu10/30/21 at 2332, Until Discontinu ed, Routine, Chest pain ondansetron 2020-11 Yes 4mg 4 mg, Slow Univers (ZOFRAN 2-16 IV Push, ity of (PF)) 05:32: Q6HPRN, [place] injection 4 10 Starting Medi birdie mg on Thu Branch 10/30/21 at 2332, Until Discontinu ed, Routine, Nausea and Vomiting (N/V) acetaminoph 2020-11 Yes 650mg 650 mg, Un mel en -16 Oral, ity of (TYLENOL) 05:31: Q6HPRN, [place] tablet 650 56 Starting Medic al mg on Thu Branch 10/30/21 at 2331, Until Discontinu ed, Routine, Pain (scale 1-3) acetaminoph 2020-11 Yes [id number] 1{tbl} 1 tablet, Univers en-codeine 2-16 Oral, ity of (TYLENOL 05:29: Q6HPRN, [place] #3) 300-30 29 Starting Medic al mg tablet 1 on Thu Branch tablet 10/30/21 at 2329, Until Discontinu ed, Routine, Pain (scale 4-6), Pain (scale 7-10) sodium 2020-11 Yes 5mL 5 mL, Univers chloride 2-16 Intravenou ity o f (NS) 01:21: s, PRN, [place] injection 5 02 Starting Medi birdie mL on Thu Branch 10/30/21 at 1921, Until Discontinu ed, Routine, IV line flushing morpHINE 2020- No 4mg 4 mg, Slow Un mel injection 4 04-25 06-10 IV Push, ity of mg 23:15: 22:23 ONCE, 1 [place] 00 :00 dose, [facility] Medical 04/25/21 at Branch 1815, STAT acetaminoph 2020-2020- No 1{tbl} 1 tablet, Univers en-codeine 6-10 06-10 Oral, ity of (TYLENOL 19:00: 17:52 ONCE, 1 [place] #3) 300-30 00 :00 dose, [place] Medi birdie mg tablet 1 04/25/21 at Br anch tablet 1400, ADAMA cyclobenzap 2020- No 10mg 10 mg, Uni vers rine 6-10 06-10 Oral, ONCE ity of (FLEXERIL) 19:00: 17:52 NOW, 1 [place] tablet 10 00 :00 dose, [place] Medic al mg 04/25/21 at Branch 1400, ADAMA cyclobenzap Yes [id number] 5mg Take 1 Univers rine 5 mg 6-10 tablet by ity o f tablet 00:00: mouth 3 [place] 00 (three) Medical times [place] daily. cyclobenzap Yes [id number] 5mg Take 1 Univers rine 5 mg 6-10 tablet by ity o f tablet 00:00: mouth 3 [place] (three) Medical times Branch daily. cyclobenzap Yes [id number] 5mg Take 1 Univers rine 5 mg [...] left sided low back pain cyclobenzap Yes [id number] 5mg Take 1 Univers rine 5 mg [...] left sided low back pain cyclobenzap Yes [id number] 5mg Take 1 Univers rine 5 mg 6-10 tablet by ity o f tablet 00:00: mouth 3 00 (three) Medical times Branch daily. cyclobenzap 2021- No [id number] 5mg Take 1 Univers rine 5 mg 6-10 04-16 tablet by ity of tablet 00:00: 00:00 mouth 3 [place] 00 :00 (three) Medical times Branch daily. acetaminoph 2021- No [id number] 1{tbl} Take 1 U nivers en-codeine 6-10 12-18 tablet by ity of 300-30 mg 00:00: 00:00 mouth [place] tablet 00 :00 every 6 Medical (six) Branch hours as needed for Pain (scale 4-6). Indication s: acute pain, left sided low back pain acetaminoph Yes [id number] 1{tbl} Take 1 Un [...] Discontinu ed, Routine aspirin 81 2020-0 Yes [id number] 81mg Take 1 U nivers mg chewable 5-09 tablet by ity of tablet 00:00: mouth [place] 00 daily with Medical breakfast. Branch furosemide 2020-0 Yes [id number] 20mg Take 1 U nivers 20 mg 5-09 tablet by ity of tablet 00:00: mouth [place] 00 daily. Medical Branch aspirin 81 2020-0 Yes [id number] 81mg Take 1 U nivers mg chewable 5-09 tablet by ity of tablet 00:00: mouth [place] 00 daily with Medical breakfast. Branch furosemide 2020-0 Yes [id number] 20mg Take 1 U nivers 20 mg 5-09 tablet by ity of tablet 00:00: mouth [place] 00 daily. Medical Branch aspirin 81 2020-0 Yes [id number] 81mg Take 1 U nivers mg chewable 5-09 tablet by ity of tablet 00:00: mouth [place] 00 daily with Medical breakfast. Branch furosemide 2020-0 Yes [id number] 20mg Take 1 U nivers 20 mg 5-09 tablet by ity of tablet 00:00: mouth [place] 00 daily. Medical Branch aspirin 81 2020-0 Yes [id number] 81mg Take 1 U nivers mg chewable 5-09 tablet by ity of tablet 00:00: mouth [place] 00 daily with Medical breakfast. Branch furosemide 2020-0 Yes [id number] 20mg Take 1 U nivers 20 mg 5-09 tablet by ity of tablet 00:00: mouth [place] 00 daily. Medical Branch aspirin 81 2020-0 Yes [id number] 81mg Take 1 U nivers mg chewable 5-09 tablet by ity of tablet 00:00: mouth [place] 00 daily with Medical breakfast. Branch furosemide 2020-0 Yes [id number] 20mg Take 1 U nivers 20 mg 5-09 tablet by ity of tablet 00:00: mouth [place] 00 daily. Medical Branch aspirin 81 2020-0 Yes [id number] 81mg Take 1 U nivers mg chewable 5-09 tablet by ity of tablet 00:00: mouth [place] 00 daily with Medical breakfast. Branch furosemide 2020-0 Yes [id number] 20mg Take 1 U nivers 20 mg 5-09 tablet by ity of tablet 00:00: mouth [place] 00 daily. Medical Branch aspirin 81 2020-0 Yes [id number] 81mg Take 1 U nivers mg chewable 5-09 tablet by ity of tablet 00:00: mouth [place] 00 daily with Medical breakfast. Branch furosemide 2020-0 Yes [id number] 20mg Take 1 U nivers 20 mg 5-09 tablet by ity of tablet 00:00: mouth [place] 00 daily. Medical Branch aspirin 81 2020-0 Yes [id number] 81mg Take 1 U nivers mg chewable 5-09 tablet by ity of tablet 00:00: mouth [place] 00 daily with Medical breakfast. Branch furosemide 2020-0 Yes [id number] 20mg Take 1 U nivers 20 mg 5-09 tablet by ity of tablet 00:00: mouth [place] 00 daily. Medical Branch aspirin 81 2020-0 Yes [id number] 81mg Take 1 U nivers mg chewable 5-09 tablet by ity of tablet 00:00: mouth [place] 00 daily with Medical breakfast. Branch furosemide 2020-0 Yes [id number] 20mg Take 1 U nivers 20 mg 5-09 tablet by ity of tablet 00:00: mouth [place] 00 daily. Medical Branch aspirin 81 2020-0 2021- No [id number] 81mg Take 1 Univers mg chewable 5- 12-18 tablet by it y of tablet 00:00: 00:00 mouth [place] 00 :00 daily with Medical breakfast. Branch furosemide 2020-0 2021- No [id number] 20mg Take 1 Univers 20 mg 5- 12-18 tablet by ity of tablet 00:00: 00:00 mouth [place] 00 :00 daily. Medical Branch isosorbide 2020-0 2020- No [id number] 90mg Take 3 Univers mononitrate 5- 05-08 tablets by i ty of 30 mg 24 hr 00:00: 00:00 mouth [place] tablet 00 :00 daily. Medical Branch isosorbide 2020-0 2020- No [id number] 90mg Take 3 Univers mononitrate 5-09 05-08 tablets by i ty of 30 mg 24 hr 00:00: 00:00 mouth [place] tablet 00 :00 daily. Medical Branch maalox/lido 2020-0 2020- No 5mL 5 mL, [facility] sydni 2 03-23 05-08 Oral, ity of %viscous 20:45: 20:56 ONCE, 1: 00 :00 dose, Fri Medical suspension 03/23/20 at [facility] (COMPOUNDED 1545, ) Routine maalox/lido 2020-0 2020- No 5mL 5 mL, [facility] sydni 2 5-08 05-08 Oral, ity of %viscous 20:45: 20:56 ONCE, 1: 00 :00 dose, Fri Medical suspension 03/23/20 at [facility] (COMPOUNDED 1545, ) Routine acetaminoph 2019-0 Yes 875mg 900 mg Uni vers en [...] Yes 90mg 90 mg, Unive rs mononitrate 03-23 Oral, ity of (IMDUR) 24 14:30: DAILY, [...] Sliding 2020-0 Yes Subcutaneo Univ ers Scale -08 us, TID ity of Insulin - 13:00: MEALS+HS, [place] Aspart 00 First dose Medical (NOVOLOG) + on Thu Branch Fsbg 03/23/20 at Testing 0800, Until Discontinu ed, Routine ranolazine 2020-0 Yes 1000mg 1,000 mg, Univers (RANEXA) 12 - Oral, ity of hr tablet 13:00: Q12H, [...] mg 00 First dose Medic al on Fri Branch 03/23/20 at 0800, Until Discontinu ed, Routine metoprolol 2020-0 Yes 25mg 25 mg, Unive rs succinate 03-23 Oral, BID, ity of XL (TOPROL 13:00: First dose [place] XL) tablet 00 on Fri Medical 25 mg 03/23/20 at Branch 0800, [...] IV Push, ity of mg 07:59: Q4HPRN, [place] [id number] Starting Medical 03/23/20 Branch at 0259, Until Discontinu ed, Routine, Chest pain morpHINE 2020-0 Yes 2mg 2 mg, Slow Uni vers injection 2 03-23 IV Push, ity of mg 07:59: Q4HPRN, [place] 14 Starting Medical 03/23/20 Branch at 0259, Until Discontinu ed, Routine, Chest pain magnesium 2020-0 2020- No 2g 2 g, IV Univ ers sulfate in 03-23 Piggyback, it y of water 2 07:45: 07:49 ONCE, 1 [place] gram/50 mL 00 :00 dose, Fri Medi birdie (4 %) 03/23/20 at [place] infusion 2 0245, g Routine KCL 2020-0 [...] Fri Medi birdie (4 %) 03/23/20 at [place] infusion 2 0245, g Routine KCL 2020-0 [...] 2019-0 2020- No Take by U ulises ann, 03-23- mouth. ity of Vitamin D3, [...] 2019-0 2020- No Take by U ulises ann, 03-23-07 mouth. ity of Vitamin D3, [...] 08 Oral, ity of (TYLENOL) 02:51: Q6HPRN, [place] tablet 650 29 Starting Medic al mg [facility] 03/22/20 Branch at 215, Until Discontinu ed, Routine, Pain (scale 1-3) acetaminoph 2020-0 Yes 650mg 650 mg, Un mel en 08 Oral, ity of (TYLENOL) 02:51: Q6HPRN, [place] tablet 650 29 Starting Medic al mg [facility] 03/22/20 Branch at 2151, Until Discontinu ed, Routine, Pain (scale 1-3) nitroglycer 2020-0 Yes .4mg 0.4 mg, Uni vers in 5-08 Sublingual ity of (NITROSTAT) 02:38: , Q5MIN [place] sublingual 00 PRN, 3 Medical tablet 0.4 doses, Branch mg Starting [facility] 03/22/20 at 2138, Until Discontinu ed, ADAMA, Chest pain nitroglycer 2020-0 Yes .4mg 0.4 mg, Uni vers in 5-08 Sublingual ity of (NITROSTAT) 02:38: , Q5MIN [place] sublingual 00 PRN, 3 Medical tablet 0.4 doses, Branch mg Starting [facility] 03/22/20 at 2138, Until Discontinu ed, ADAMA, Chest pain aspirin 2020-0 2020- No 324mg 324 mg, Unive rs chewable 5-08 05-08 Oral, ity of tablet 324 02:37: 02:51 ONCE, 1 [place] mg 00 :00 dose, Madhavi [facility] 03/22/20 at Branch 2145, ADAMA aspirin 2020-0 2020- No 324mg 324 mg, Unive rs chewable 5-08 05-08 Oral, ity of tablet 324 02:37: 02:51 ONCE, 1 [place] mg 00 :00 dose, [facility] 03/22/20 at Branch 2145, ADAMA isosorbide 2020-0 Yes [id number] 90mg Take 1.5 Univers mononitrate 5-08 tablets by it y of 60 mg 24 hr 00:00: mouth [place] tablet 00 daily. [facility] isosorbide 2020-0 Yes [id number] 90mg Take 1.5 Univers mononitrate 5-08 tablets by it y of 60 mg 24 hr 00:00: mouth [place] tablet 00 daily. [facility] isosorbide 2020-0 Yes [id number] 90mg Take 1.5 Univers mononitrate 5-08 tablets by it y of 60 mg 24 hr 00:00: mouth [place] tablet 00 daily. [facility] isosorbide 2020-0 Yes [id number] 90mg Take 1.5 Univers mononitrate 5-08 tablets by it y of 60 mg 24 hr 00:00: mouth [place] tablet 00 daily. [facility] isosorbide 2020-0 Yes [id number] 90mg Take 1.5 Univers mononitrate 5-08 tablets by it y of 60 mg 24 hr 00:00: mouth [place] tablet 00 daily. [facility] isosorbide 2020-0 Yes [id number] 90mg Take 1.5 Univers mononitrate 5-08 tablets by it y of 60 mg 24 hr 00:00: mouth [place] tablet 00 daily. [facility] isosorbide 2020-0 Yes [id number] 90mg Take 1.5 Univers mononitrate 5-08 tablets by it y of 60 mg 24 hr 00:00: mouth [place] tablet 00 daily. [facility] isosorbide 2020-0 Yes [id number] 90mg Take 1.5 Univers mononitrate 5-08 tablets by it y of 60 mg 24 hr 00:00: mouth [place] tablet 00 daily. Medical Branch isosorbide 2019- Yes [id number] 90mg Take 1.5 Univers mononitrate 5-08 tablets by it y of 60 mg 24 hr 00:00: mouth [place] tablet 00 daily. Medical Branch isosorbide 2019- 2021- No [id number] 90mg Take 1.5 Univers mononitrate 5-08 12-18 tablets by i ty of 60 mg 24 hr 00:00: 00:00 mouth [place] tablet 00 :00 daily. Medical Branch acetaminoph 2020- No [id number] 975mg Take 3 Univers en 325 mg 5-08 05-19 tablets by ity of tablet 00:00: 04:59 mouth [place] 00 :00 every 8 Medical (eight) Branch hours for 10 days. acetaminoph 2020- No [id number] 975mg Take 3 Univers en 325 mg 5-08 05-19 tablets by ity of tablet 00:00: 04:59 mouth [place] 00 :00 every 8 Medical (eight) Branch hours for 10 days. acetaminoph 2020- No [id number] 975mg Take 3 Univers en 325 mg 5-08 05-19 tablets by ity of tablet 00:00: 04:59 mouth [place] 00 :00 every 8 Medical (eight) Branch hours for 10 days. acetaminoph 2020- No [id number] 975mg Take 3 Univers en 325 mg 5-08 05-19 tablets by ity of tablet 00:00: 04:59 mouth [place] 00 :00 every 8 Medical (eight) Branch hours for 10 days. acetaminoph 2020- No [id number] 975mg Take 3 Univers en 325 mg 5-08 05-19 tablets by ity of tablet 00:00: 04:59 mouth [place] 00 :00 every 8 Medical (eight) Branch hours for 10 days. lidocaine 5 2020- No [id number] 1{patch Apply 1 Univers % (700 5-08 05-09 } Patch to ity of mg/patch) 00:00: 04:59 area(s) [place] patch 00 :00 once now Medical for 1 Branch dose. lidocaine 5 2020- No [id number] 1{patch Apply 1 Univers % (700 5-08 05-09 } Patch to ity of mg/patch) 00:00: 04:59 area([place] 00 :00 once now Medical for 1 Branch dose. lidocaine 5 2019-0 2020- No [id number] 1{patch Apply 1 [facility] % (700 5-08 05-08 } Patch to ity of mg/patch) 00:00: 00:00 area([place] patch 00 :00 once now Medical for 1 Branch dose. lidocaine 5 2019-0 2020- No [id number] 1{patch Apply 1 [facility] % (700 5-08 05-08 } Patch to ity of mg/patch) 00:00: 00:00 area(s[place] 00 :00 once now Medical for 1 Branch dose. glipiZIDE 2020-0 Yes 5mg 5 mg, Univers (GLUCOTROL) 4-23 Oral, ity of tablet 5 mg 14:00: DAILY, [place] 00 First dose Medical on [facility] 03/08/20 at 0900, Until [facility] ed, Routine spironolact 2019-0 2020- No [id number] 12.5mg Take 0.5 Univers one 25 mg 4-23 05-24 tablets by ity of tablet 00:00: 04:59 mouth [place] 00 :00 daily for Medical 30 days. [place] spironolact 2020-0 2020- No [id number] 12.5mg Take 0.5 [facility] one 25 mg 4-23 05-24 tablets by ity of tablet 00:00: 04:59 mouth [place] 00 :00 daily for Medical 30 days. [place] spironolact 2020-0 2020- No [id number] 12.5mg Take 0.5 [facility] one 25 mg 4-23 05-24 tablets by ity of tablet 00:00: 04:59 mouth [place] 00 :00 daily for Medical 30 days. Branch spironolact 2020-0 2020- No [id number] 12.5mg Take 0.5 [facility] one 25 mg 4-23 05-07 tablets by ity of tablet 00:00: 00:00 mouth [place] 00 :00 daily for Medical 30 days. Branch spironolact 2020-0 2020- No [id number] 12.5mg Take 0.5 [facility] one 25 mg [...] mouth ity of tablet 20:15: 00:00 daily. [place] 29 :00 Medical Branch atorvastati 2020-0 2020- No 40mg Take 40 mg Univers n 40 mg 03-07- by mouth ity of tablet 20:15: 00:00 at [place] 29 :00 bedtime. Medical Branch temazepam 2020-0 Yes 15mg 15 mg, Univer s (RESTORIL) 4-22 Oral, ity of capsule 15 01:55: QHSPRN, [place] mg 38 Starting Medical Tue Branch 03/06/20 at 2054, Until Discontinu ed, Routine, Insomnia Insulin 2020-0 Yes [id number] 10U inject 10 [facility] Glargine 4-22 Units ity of 100 unit/mL 00:00: under the [place] (3 mL) 00 skin at Medical injection bedtime. Branch temazepam 2020-0 Yes [id number] 15mg Take 1 Un mel 15 mg 4-22 capsule by ity of capsule 00:00: mouth at [place] 00 bedtime as Medical needed for Branch Insomnia. furosemide 2020-0 Yes [id number] 40mg Take 1 [facility] 40 mg 4-22 tablet by ity of tablet 00:00: mouth [place] 00 every Medical morning Branch and evening. Magnesium 2020-0 Yes [id number] 400mg Take 400 [facility] Oxide 420 4-22 mg by ity of mg Tab 00:00: mouth [place] 00 daily. Medical Branch potassium 2020-0 Yes [id number] 20meq Take 20 [facility] chloride 20 4-22 mEq by ity of mEq packet 00:00: mouth [place] 00 daily. Medical Take with Branch lasix in the morning isosorbide 2020-0 Yes [id number] 15mg Take 0.5 [facility] mononitrate 4-22 tablets by it y of 30 mg 24 hr 00:00: mouth [place] tablet 00 daily. Medical Hold if Branch systolic blood pressure less than 120 Insulin 2020-0 Yes [id number] 10U inject 10 [facility] Glargine 4-22 Units ity of 100 unit/mL 00:00: under the [place] (3 mL) 00 skin at Medical injection bedtime. Branch temazepam 2020-0 Yes [id number] 15mg Take 1 Un mel 15 mg 4-22 capsule by ity of capsule 00:00: mouth at [place] 00 bedtime as Medical needed for Branch Insomnia. furosemide 2020-0 Yes [id number] 40mg Take 1 [facility] 40 mg 4-22 tablet by ity of tablet 00:00: mouth [place] 00 every Medical morning Branch and evening. Magnesium 2020-0 Yes [id number] 400mg Take 400 [facility] Oxide 420 4-22 mg by ity of mg Tab 00:00: mouth [place] 00 daily. Medical Branch potassium 2020-0 Yes [id number] 20meq Take 20 [facility] chloride 20 4-22 mEq by ity of mEq packet 00:00: mouth [place] 00 daily. Medical Take with Branch lasix in the morning isosorbide 2020-0 Yes [id number] 15mg Take 0.5 [facility] mononitrate 4-22 tablets by it y of 30 mg 24 hr 00:00: mouth [place] tablet 00 daily. Medical Hold if Branch systolic blood pressure less than 120 Insulin 2020-0 Yes [id number] 10U inject 10 [facility] Glargine 4-22 Units ity of 100 unit/mL 00:00: under the [place] (3 mL) 00 skin at Medical injection bedtime. Branch temazepam 2020-0 Yes [id number] 15mg Take 1 Un mel 15 mg 4-22 capsule by ity of capsule 00:00: mouth at [place] 00 bedtime as Medical needed for Branch Insomnia. furosemide 2020-0 Yes [id number] 40mg Take 1 [facility] 40 mg 4-22 tablet by ity of tablet 00:00: mouth [place] 00 every Medical morning Branch and evening. Magnesium 2020-0 Yes [id number] 400mg Take 400 [facility] Oxide 420 4-22 mg by ity of mg Tab 00:00: mouth [place] 00 daily. Medical Branch potassium 2020-0 Yes [id number] 20meq Take 20 [facility] chloride 20 4-22 mEq by ity of mEq packet 00:00: mouth [place] 00 daily. Medical Take with Branch lasix in the morning isosorbide 2020-0 Yes [id number] 15mg Take 0.5 [facility] mononitrate 4-22 tablets by it y of 30 mg 24 hr 00:00: mouth [place] tablet 00 daily. Medical Hold if Branch systolic blood pressure less than 120 Insulin 2020-0 Yes [id number] 10U inject 10 [facility] Glargine 4-22 Units ity of 100 unit/mL 00:00: under the [place] (3 mL) 00 skin at Medical injection bedtime. Branch Magnesium 2020-0 Yes [id number] 400mg Take 400 [facility] Oxide 420 4-22 mg by ity of mg Tab 00:00: mouth [place] 00 daily. Medical Branch vitamin 2020-0 2020- No [id number] 1000ug Take 1 [facility] B-12 1,000 4-22 07-22 tablet by ity of mcg tablet 00:00: 04:59 mouth [place] 00 :00 daily for Medical 90 days. Branch vitamin 2020-0 2020- No [id number] 1000ug Take 1 Univers B-12 1,000 4-22 07-22 tablet by ity of mcg tablet 00:00: 04:59 mouth [place] 00 :00 daily for Medical 90 days. Branch vitamin 2019-0 2020- No [id number] 1000ug Take 1 Univers B-12 1,000 4-06 06-22 tablet by ity of mcg tablet 00:00: 04:59 mouth [place] 00 :00 daily for Medical 90 days. Branch vitamin 2019- 2020- No [id number] 1000ug Take 1 [facility] B-12 1,000 4-06 06-22 tablet by ity of mcg tablet 00:00: 04:59 mouth [place] 00 :00 daily for Medical 90 days. Branch glipiZIDE 5 2019- 2020- No [id number] 2.5mg Take 0.5 [facility] mg tablet 03-07- tablets by ity of 00:00: 04:59 mouth 2 [place] 00 :00 (two) Medical times Branch daily before breakfast and dinner for 30 days. metoprolol 2019- 2020- No [id number] 25mg Take 1 [facility] succinate 03-07- tablet by ity of XL 25 mg 24 00:00: 04:59 mouth 2 [place] hr tablet 00 :00 (two) Medical times Branch daily for 30 days. OLANZapine 2019- 2020- No [id number] 2.5mg Take 1 [facility] 2.5 mg 03-07- tablet by ity of tablet 00:00: 04:59 mouth at [place] 00 :00 bedtime Medical for 30 Branch days. ranolazine 2019- 2020- No [id number] 1000mg Take 2 [facility] 500 mg 12 03-07- tablets by ity of hr tablet 00:00: 04:59 mouth [place] 00 :00 every 12 Medical (twelve) Branch hours for 30 days. aspirin 81 2019- 2020- No [id number] 81mg Take 1 [facility] mg chewable 03-07-23 tablet by it y of tablet 00:00: 04:59 mouth [place] 00 :00 daily with Medical breakfast Branch for 30 days. atorvastati 2019-0 2020- No [id number] 40mg Take 1 [facility] n 40 mg 03-07-23 tablet by ity of tablet 00:00: 04:59 mouth at [place] 00 :00 bedtime Medical for 30 Branch days. glipiZIDE 5 2019- 2020- No [id number] 2.5mg Take 0.5 [facility] mg tablet 4-22 05-23 tablets by ity of 00:00: 04:59 mouth 2 [place] 00 :00 (two) Medical times Branch daily before breakfast and dinner for 30 days. metoprolol 2019- 2020- No [id number] 25mg Take 1 [facility] succinate 4-22 05-23 tablet by ity of XL 25 mg 24 00:00: 04:59 mouth 2 [place] hr tablet 00 :00 (two) Medical times Branch daily for 30 days. OLANZapine 2019- 2020- No [id number] 2.5mg Take 1 [facility] 2.5 mg 4-22 05-23 tablet by ity of tablet 00:00: 04:59 mouth at [place] 00 :00 bedtime Medical for 30 Branch days. ranolazine 2019- 2020- No [id number] 1000mg Take 2 [facility] 500 mg 12 4-22 05-23 tablets by ity of hr tablet 00:00: 04:59 mouth [place] 00 :00 every 12 Medical (twelve) Branch hours for 30 days. aspirin 81 2019- 2020- No [id number] 81mg Take 1 [facility] mg chewable 4-22 05-23 tablet by it y of tablet 00:00: 04:59 mouth [place] 00 :00 daily with Medical breakfast Branch for 30 days. atorvastati 2019- 2020- No [id number] 40mg Take 1 [facility] n 40 mg 4-22 05-23 tablet by ity of tablet 00:00: 04:59 mouth at [place] 00 :00 bedtime Medical for 30 Branch days. glipiZIDE 5 2019- 2020- No [id number] 2.5mg Take 0.5 [facility] mg tablet - 05-23 tablets by ity of 00:00: 04:59 mouth 2 [place] 00 :00 (two) Medical times Branch daily before breakfast and dinner for 30 days. metoprolol 2019-0 2020- No [id number] 25mg Take 1 [facility] succinate 4-22 05-23 tablet by ity of XL 25 mg 24 00:00: 04:59 mouth 2 [place] hr tablet 00 :00 (two) Medical times Branch daily for 30 days. OLANZapine 2019-0 2020- No [id number] 2.5mg Take 1 Univers 2.5 mg 4-22 05-23 tablet by ity of tablet 00:00: 04:59 mouth at [place] 00 :00 bedtime Medical for 30 Branch days. ranolazine 2019-0 2020- No [id number] 1000mg Take 2 [facility] 500 mg 12 4-22 05-23 tablets by ity of hr tablet 00:00: 04:59 mouth [place] 00 :00 every 12 Medical (twelve) Branch hours for 30 days. aspirin 81 2019- 2020- No [id number] 81mg Take 1 [facility] mg chewable 4-22 05-23 tablet by it y of tablet 00:00: 04:59 mouth [place] 00 :00 daily with Medical breakfast Branch for 30 days. atorvastati 2019- 2020- No [id number] 40mg Take 1 [facility] n 40 mg 4-22 05-23 tablet by ity of tablet 00:00: 04:59 mouth at [place] 00 :00 bedtime Medical for 30 Branch days. glipiZIDE 5 2019- 2020- No [id number] 2.5mg Take 0.5 [facility] mg tablet - 05-23 tablets by ity of 00:00: 04:59 mouth 2 [place] 00 :00 (two) Medical times Branch daily before breakfast and dinner for 30 days. metoprolol 2019- 2020- No [id number] 25mg Take 1 [facility] succinate 4-22 05-23 tablet by ity of XL 25 mg 24 00:00: 04:59 mouth 2 [place] hr tablet 00 :00 (two) Medical times Branch daily for 30 days. ranolazine 2019- 2020- No [id number] 1000mg Take 2 [facility] 500 mg 12 4-22 05-23 tablets by ity of hr tablet 00:00: 04:59 mouth [place] 00 :00 every 12 Medical (twelve) Branch hours for 30 days. atorvastati 2019- 2020- No [id number] 40mg Take 1 [facility] n 40 mg 4-22 05-23 tablet by ity of tablet 00:00: 04:59 mouth at [place] 00 :00 bedtime Medical for 30 Branch days. furosemide 2019- 2020- No [id number] 40mg Take 1 [facility] 40 mg 4-22 05-08 tablet by ity of tablet 00:00: 00:00 mouth [place] 00 :00 every Medical morning Branch and evening. aspirin 81 2019- 2020- No [id number] 81mg Take 1 [facility] mg chewable 4-22 05-08 tablet by it y of tablet 00:00: 00:00 mouth [place] 00 :00 daily with Medical breakfast Branch for 30 days. isosorbide 2019- No [id number] 15mg Take 0.5 [facility] mononitrate 03-07-08 tablets by i ty of 30 mg 24 hr 00:00: 00:00 mouth [place] tablet 00 :00 daily. Medical Hold if Branch systolic blood pressure less than 120 Insulin 2019- No [id number] 10U inject 10 [facility] Glargine 03-07 05-08 Units ity of 100 unit/mL 00:00: 00:00 under the [place] (3 mL) 00 :00 skin at Medical injection bedtime. Branch glipiZIDE 5 2019- No [id number] 2.5mg Take 0.5 [facility] mg tablet 03-07-08 tablets by ity of 00:00: 00:00 mouth 2 [place] 00 :00 (two) Medical times Branch daily before breakfast and dinner for 30 days. metoprolol 2019- No [id number] 25mg Take 1 [facility] succinate 03-07 05-08 tablet by ity of XL 25 mg 24 00:00: 00:00 mouth 2 [place] hr tablet 00 :00 (two) Medical times Branch daily for 30 days. ranolazine 2019- No [id number] 1000mg Take 2 [facility] 500 mg 12 03-07 05-08 tablets by ity of hr tablet 00:00: 00:00 mouth [place] 00 :00 every 12 Medical (twelve) Branch hours for 30 days. furosemide 2019- No [id number] 40mg Take 1 [facility] 40 mg 03-07 05-08 tablet by ity of tablet 00:00: 00:00 mouth [place] 00 :00 every Medical morning Branch and evening. aspirin 81 2019- No [id number] 81mg Take 1 [facility] mg chewable 03-07 05-08 tablet by it y of tablet 00:00: 00:00 mouth [place] 00 :00 daily with Medical breakfast Branch for 30 days. atorvastati 2019- 2020- No [id number] 40mg Take 1 [facility] n 40 mg - 05-08 tablet by ity of tablet 00:00: 00:00 mouth at [place] 00 :00 bedtime Medical for 30 Branch days. Magnesium 2019- 2020- No [id number] 400mg Take 400 [facility] Oxide 420 03-07 05-08 mg by ity of mg Tab 00:00: 00:00 mouth [place] 00 :00 daily. Medical Branch vitamin 2019-2019- No [id number] 1000ug Take 1 Univers B-12 1,000 4-22 05-08 tablet by ity of mcg tablet 00:00: 00:00 mouth [place] 00 :00 daily for Medical 90 days. Branch isosorbide 2019- No [id number] 15mg Take 0.5 [facility] mononitrate 4-22 05-08 tablets by i ty of 30 mg 24 hr 00:00: 00:00 mouth [place] tablet 00 :00 daily. Medical Hold if Branch systolic blood pressure less than 120 OLANZapine 2019- No [id number] 2.5mg Take 1 [facility] 2.5 mg 4-22 05-07 tablet by ity of tablet 00:00: 00:00 mouth at [place] 00 :00 bedtime Medical for 30 Branch days. temazepam 2019- No [id number] 15mg Take 1 U nivers 15 mg 4-22 05-07 capsule by ity of capsule 00:00: 00:00 mouth at [place] 00 :00 bedtime as Medical needed for Branch Insomnia. potassium 2019- No [id number] 20meq Take 20 Univers chloride 20 4-22 05-07 mEq by ity o f mEq packet 00:00: 00:00 mouth [place] 00 :00 daily. Medical Take with Branch lasix in the morning OLANZapine 2019- No [id number] 2.5mg Take 1 Univers 2.5 mg 4-22 05-07 tablet by ity of tablet 00:00: 00:00 mouth at [place] 00 :00 bedtime Medical for 30 Branch days. temazepam 2019- No [id number] 15mg Take 1 U nivers 15 mg 4-22 05-07 capsule by ity of capsule 00:00: 00:00 mouth at [place] 00 :00 bedtime as Medical needed for Branch Insomnia. potassium 2019-2019- No [id number] 20meq Take 20 Univers chloride 20 4-22 05-07 mEq by ity o f mEq packet 00:00: 00:00 mouth [place] 00 :00 daily. Medical Take with Branch lasix in the morning isosorbide 2019- No 60mg 60 mg, Univ ers mononitrate 4-21 04-21 Oral, ity of (IMDUR) 24 14:00: 13:43 DAILY, [place] hr tablet 00 :56 First dose Medi birdie 60 mg on [place] 03/06/20 at 0900, Until Discontinu ed, Routine OLANZapine 2020-0 Yes 2.5mg 2.5 mg, Uni vers (ZyPREXA) 4-21 Oral, QHS, ity of tablet 2.5 02:00: First dose [place] mg 00 on [facility] 03/05/20 at Branch 2100, Until Discontinu ed, Routine insulin 2020-0 Yes 10U 10 Units, Unive rs glargine 4-21 Subcutaneo ity o f (LANTUS 02:00: us, QHS, [place] U-100) 00 First dose Medical injection on [facility] Branch 10 Units 03/05/20 at 2100, Until Discontinu ed, Routine donepezil 2020-0 Yes 5mg 5 mg, Univers (ARICEPT) 4-21 Oral, QHS, ity of tablet 5 mg 02:00: First dose [place] 00 on [facility] 03/05/20 at Branch 2100, Until Discontinu ed, Routine atorvastati 2020-0 Yes 40mg 40 mg, Univ ers n (LIPITOR) 4-21 Oral, QHS, it y of tablet 40 02:00: First dose [place] mg 00 on [facility] 03/05/20 at Branch 2100, Until Discontinu ed, Routine isosorbide 2020-0 2020- No 30mg 30 mg, Univ ers mononitrate - 04-20 Oral, ity of (IMDUR) 24 15:30: 15:21 ONCE, 1 [place] as hr tablet 00 :00 dose, [facility] Medic al 30 mg 03/05/20 at Branch 1030, Routine spironolact 2020-0 Yes 12.5mg 12.5 mg, Univers one 4-20 Oral, ity of (ALDACTONE) 14:00: DAILY, [place] tablet 12.5 00 First dose Me dical mg on [facility] 03/05/20 at 0900, Until Discontinu ed, Routine memantine 2020-0 Yes 10mg 10 mg, Univer s (NAMENDA) 4-20 Oral, ity of tablet 10 14:00: DAILY, [place] mg 00 First dose Medical on [facility] 03/05/20 at 0900, Until Discontinu ed, Routine
support team member approving Restricted medication : [facility] lisinopril 2020-0 2020- No 5mg 5 mg, Unive rs (PRINIVIL,Z 03-05- Oral, ity of ESTRIL) 14:00: 13:44 DAILY, [place] tablet 5 mg 00 :01 First dose Me dical on Mon Branch 03/05/20 at 0900, Until Discontinu ed, Routine isosorbide 2020-0 2020- No 30mg 30 mg, Univ ers mononitrate -05 03- Oral, ity of (IMDUR) 24 14:00: 14:20 DAILY, [place] hr tablet 00 :04 First dose Medi birdie 30 mg on Thu Branch 03/05/20 at 0900, Until Discontinu ed, Routine ranolazine 2020-0 Yes 500mg 500 mg, Uni vers (RANEXA) 12 -20 Oral, ity of hr tablet 13:00: Q12H, [place] 500 mg 00 First dose Medical on Thu Branch 03/05/20 at 0800, Until Discontinu ed, Routine metoprolol 2020-0 Yes 25mg 25 mg, Unive rs succinate 4-20 Oral, BID, ity of XL (TOPROL 13:00: First dose [place] XL) tablet 00 on [facility] Medical 25 mg 03/05/20 at [...] IV ity of (D50W) 03:02: Push, PRN, [place] injection 42 Starting Medica l 25 mL [facility] 03/04/20 at 2202, Until Discontinu ed, ADAMA, Blood Glucose < or = 70 mg/dL and patient is unable to swallow or has mental status changes. furosemide 2020-0 Yes 40mg 40 mg, Unive rs (LASIX) 4-20 Oral, ity of tablet 40 03:00: QAM+PM, [place] mg 00 First dose Medical on [facility] 03/04/20 at 2200, Until Discontinu ed, Routine cyanocobala 2020-0 Yes 1000ug 1,000 mcg, Univers min -20 Subcutaneo ity of (VITAMIN 03:00: [place], Q24H, [place] B12) 00 First dose Medical injection on [facility] 1,000 mcg 03/04/20 at 2200, Until Discontinu ed, Routine heparin 2020-0 Yes 5000U 5,000 Univers (porcine) 4-20 Units, ity of injection 03:00: Subcutaneo [place] 5,000 Units 00 us, Q8H, Medi birdie First dose Branch on [place] 03/04/20 at 2200, Until Discontinu ed, Routine ondansetron 2020-0 Yes 4mg 4 mg, Slow Univers (ZOFRAN 4-20 IV Push, ity of (PF)) 02:34: Q6HPRN, [place] injection 4 40 Starting Medi birdie mg [facility] 03/04/20 at 2134, Until Discontinu ed, Routine, Nausea and Vomiting (N/V) traMADol 2020-0 2020- No 50mg 50 mg, Univer s (ULTRAM) 4-20 04-22 Oral, ity of tablet 50 02:34: 02:33 Q8HPRN, [place] mg 23 :23 Starting Medical [facility] 03/04/20 at 2134, Until 03/06/20 at 3, Routine, Pain (scale 4-6) acetaminoph 2019-0 Yes 650mg 650 mg, Un mel en 4-20 Oral, ity of (TYLENOL) 02:34: Q6HPRN, [place] tablet 650 20 Starting Medic al mg [facility] 03/04/20 at 2134, Until Discontinu ed, Routine, Pain (scale 1-3) lisinopril 2020-0 Yes [id number] 5mg Take 1 Univers 5 mg tablet 4-18 tablet by ity of 00:00: mouth [place] 00 daily. Medical Branch isosorbide 2020-0 Yes [id number] 30mg Take 1 [facility] mononitrate 4-18 tablet by ity of 30 mg 24 hr 00:00: mouth [place] tablet 00 daily. Medical Branch lisinopril 2020-0 Yes [id number] 5mg Take 1 Univers 5 mg tablet 4-18 tablet by ity of 00:00: mouth [place] 00 daily. Medical Branch isosorbide 2020-0 Yes [id number] 30mg Take 1 [facility] mononitrate 4-18 tablet by ity of 30 mg 24 hr 00:00: mouth [place] tablet 00 daily. Medical Branch lisinopril 2020-0 2020- No [id number] 5mg Take 1 Univers 5 mg tablet 4-18 04-22 tablet by it y of 00:00: 00:00 mouth [place] 00 :00 daily. Medical Branch isosorbide 2020-0 2020- No [id number] 30mg Take 1 [facility] mononitrate 4-18 04-22 [...] 4-17 mouth. ity of Vitamin D3, 17:34: [place] 2,000 unit 27 Medical capsule Branch metoprolol 2020-0 Yes 12.5mg Take 12.5 Univers tartrate 4-17 mg by ity of 12.5 mg 17:34: mouth 2 [place] 27 (two) Medical times Branch daily. MULTIVITAMI 2020-0 Yes Take by Un mel N ORAL 4-17 mouth. ity of 17:34: [place] [address] Medical Branch thiamine 2020-0 Yes 100mg Take 100 Univ ers (VITAMIN 4-17 mg by ity of B-1) 100 mg 17:34: mouth [place] tablet 27 daily. Medical Branch aspirin 81 2020-0 Yes 81mg Take 81 mg U nivers mg chewable 4-17 by mouth ity of tablet 17:34: daily. [place] [address] Medical Branch atorvastati 2020-0 Yes 40mg Take 40 mg Univers n 40 mg 4-17 by mouth ity of tablet 17:34: at [place] 27 bedtime. Medical Branch NaCl 0.9% 2020-0 [...] 4-17 mouth. ity of complex and 17:34: [place] C (B 27 Medical COMPLEX-VIT Branch RAZA C-FOLIC ACID ORAL) Cholecalcif 2020-0 Yes Take by Un mel ann, 4-17 mouth. ity of Vitamin D3, 17:34: [place] 2,000 unit 27 Medical capsule Branch metoprolol 2020-0 Yes 12.5mg Take 12.5 Univers tartrate 4-17 mg by ity of 12.5 mg 17:34: mouth 2 [place] 27 (two) Medical times Branch daily. MULTIVITAMI [...] by mouth ity of tablet 17:34: daily. Medical Branch atorvastati 2020-0 Yes 40mg Take [...] mg 02:00: First dose [place] 00 on [facility] Medical 03/01/20 at Branch 2100, Until Discontinu ed, Routine furosemide 2020-0 Yes [id number] 40mg Take 1 Univers 40 mg 4-17 tablet by ity of tablet 00:00: mouth [place] 00 every Medical morning Branch and evening. potassium 2020-0 Yes [id number] 20meq Take 20 Univers chloride 20 4-17 mEq by ity of mEq packet 00:00: mouth [place] 00 daily. Medical Branch vitamin 2020-0 Yes [id number] 1000ug Take 1 U nivers B-12 1,000 4-17 tablet by ity of mcg tablet 00:00: mouth [place] 00 daily. Medical Branch furosemide 2020-0 Yes [id number] 40mg Take 1 Univers 40 mg 4-17 tablet by ity of tablet 00:00: mouth [place] 00 every Medical morning Branch and evening. potassium 2020-0 Yes [id number] 20meq Take 20 Univers chloride 20 4-17 mEq by ity of mEq packet 00:00: mouth [place] 00 daily. Medical Branch vitamin 2020-0 Yes [id number] 1000ug Take 1 U nivers B-12 1,000 4-17 tablet by ity of mcg tablet 00:00: mouth [place] 00 daily. Medical Branch furosemide 2020-0 2020- No [id number] 40mg Take 1 Univers 40 mg 4-17 04-22 tablet by ity of tablet 00:00: 00:00 mouth [place] 00 :00 every Medical morning Branch and evening. potassium 2019-0 2020- No [id number] 20meq Take 20 Univers chloride 20 4-17 04-22 mEq by ity o f mEq packet 00:00: 00:00 mouth [place] 00 :00 daily. Medical Branch vitamin 2020-0 2020- No [id number] 1000ug Take 1 Univers B-12 1,000 4-17 -22 tablet by ity of mcg tablet 00:00: 00:00 mouth [place] 00 :00 daily. Medical Branch cyanocobala 2019-0 Yes 1000ug 1,000 mcg, Univers min 4-16 Subcutaneo ity of (VITAMIN 20:45: us, Q24H, [place] B12) 00 First dose Medical injection on [facility] Branch 1,000 mcg 03/01/20 at 1545, Until Discontinu ed, Routine isosorbide 2020-0 Yes 30mg 30 mg, Unive rs mononitrate 4-16 Oral, ity of (IMDUR) 24 14:00: DAILY, [place] hr tablet 00 First dose Medi birdie 30 mg on [facility] Branch 03/01/20 at 0900, Until Discontinu ed, Routine memantine 2019-0 Yes 10mg 10 mg, Univer s (NAMENDA) 4-16 Oral, ity of tablet 10 14:00: DAILY, [place] mg 00 First dose Medical on [facility] Branch 03/01/20 at 0900, Until Discontinu ed, Routine
support team member approving Restricted medication : [facility] lisinopril 2020-0 Yes 5mg 5 mg, Univer s (PRINIVIL,Z 4-16 Oral, ity of ESTRIL) 14:00: DAILY, [place] tablet 5 mg 00 First dose Me dical on [facility] Branch 03/01/20 at 0900, Until Discontinu ed, Routine enoxaparin 2020-0 Yes 30mg 30 mg, Unive rs (LOVENOX) 4-16 Subcutaneo ity of injection 14:00: [place], DAILY, [place] 30 mg 00 First dose Medical on [facility] 03/01/20 at 0900, Until Discontinu ed, Routine KCL 2020-0 2020- No 20meq 20 mEq, Univers (KLOR-CON 03-01- Oral, ity of M20) tablet 14:00: 13:26 DAILY, [place] as 20 mEq 00 :35 First dose Medical on [facility] 03/01/20 at 0900, Until Discontinu ed, Routine KCL 2020-0 Yes 40meq 40 mEq, Univers (KLOR-CON 16 Oral, BID, ity of M20) tablet 13:30: First dose [place] 40 mEq 00 on [facility] 03/01/20 at Branch 0830, Until Discontinu ed, Routine magnesium 2020-0 2020- No 2g 2 g, IV Univ ers sulfate in 03-01 Infusion, ity of water 2 03:30: 03:30 ONCE, 1 [place] gram/50 mL 00 :00 dose, [facility] birdie (4 %) 2 g 02/29/20 at [facility] piggyback 2230 metoprolol 2020-0 2020- No 5mg 5 mg, Slow Univers (LOPRESSOR) 03-01 IV Push, ity of injection 5 03:30: 03:37 ONCE, 1 [place] mg 00 :00 dose, [facility] 02/29/20 at Branch 2230, ADAMA glipiZIDE 2020-0 Yes 5mg 5 mg, Univers (GLUCOTROL) 03-01 Oral, ity of tablet 5 mg 02:45: BIDAC, [place] 00 First dose Medical on [facility] 02/29/20 at 2145, Until Discontinu ed, Routine insulin 2020-0 Yes 10U 10 Units, Unive rs glargine 03-01 Subcutaneo ity o f (LANTUS 02:45: us, QHS, [place] U-100) 00 First dose Medical injection on [facility] Branch 10 Units 02/29/20 at 2145, Until Discontinu ed, Routine OLANZapine 2020-0 Yes 2.5mg 2.5 mg, Uni vers (ZyPREXA) 16 Oral, QHS, ity of tablet 2.5 02:45: First dose [place] 00 on [facility] 02/29/20 at Branch 2145, Until [...] 2020-0 Yes 81mg 81 mg, Univers chewable -16 Oral, QAM ity of tablet 81 02:30: [...] Medical 02/29/20 at Branch 2000, Routine acetaminoph 2019- Yes 650mg 650 mg, Un mel en 15 Oral, ity of (TYLENOL) 23:57: Q6HPRN, [place] tablet 650 [address] [facility] 02/29/20 at 1857, Until Discontinu ed, Routine, Pain (scale 1-3) NaCl 0.9% 2019-2019- No 500mL at 999 Univ ers (NS) bolus 02-28 mL/hr, 500 it y of infusion 23:30: 23:37 mL, IV [place] 500 mL 00 :00 Infusion, Medical ONCE, 1 Branch dose, [facility] 02/29/20 at 1830, ADAMA acetaminoph 2019-2019- No 650mg 650 mg, U nivers en 02-2815 Oral, ity of (TYLENOL) 23:00: 22:36 ONCE, 1 [place] tablet 650 00 :00 dose, Thu Medi birdie mg 02/29/20 at Branch 1800, [facility] donepezil 5 2019-0 Yes 5mg Take 5 mg U nivers mg tablet 02-14 by mouth ity of 00:00: daily. [place] [facility] donepezil 5 2019-0 2020- No 5mg Take 5 mg Univers mg tablet 02-14 by mouth ity o f 00:00: 00:00 daily. [place] 00 :00 [facility] Branch nitroglycer 2019- 2020- No DISSOLVE U [...] No 10meq Take 10 Un mel tablet 4-01 05-07 mEq by ity of 00:00: 00:00 [...] N ORAL 3-03 mouth. ity of 23:00: [place] 52 Medical Branch thiamine 2020-0 Yes 100mg Take 100 Univ ers (VITAMIN 3-03 mg by ity of B-1) 100 mg 23:00: mouth [place] tablet 52 daily. Medical Branch aspirin 81 2020-0 Yes 81mg Take 81 mg U nivers mg chewable 3-03 by mouth ity of tablet 23:00: daily. [place] [address] Medical Branch atorvastati 2020-0 Yes 40mg Take [...] 3-03 mouth. ity of Vitamin D3, 23:00: [place] 2,000 unit 52 Medical capsule Branch metoprolol 2020-0 Yes 12.5mg Take 12.5 Univers tartrate 3-03 mg by ity of 12.5 mg 23:00: mouth 2 [place] 52 (two) Medical times Branch daily. MULTIVITAMI 2020-0 Yes Take by Un mel N ORAL 3-03 mouth. ity of 23:00: [place] [address] Medical Branch thiamine 2020-0 Yes 100mg Take 100 Univ ers (VITAMIN 3-03 mg by ity of B-1) 100 mg 23:00: mouth [place] tablet 52 daily. Medical Branch aspirin 81 2020-0 Yes 81mg Take 81 mg U nivers mg chewable 3-03 by mouth ity of tablet 23:00: daily. [place] [address] Medical Branch atorvastati 2020-0 Yes 40mg Take 40 mg Univers n 40 mg 3-03 by mouth ity of tablet 23:00: at [place] [address] bedtime. Medical Branch NaCl 0.9% 2020-0 Yes [...] by ity of mEq packet 23:00: mouth [place] 52 daily. Medical Branch Cholecalcif 2020-0 Yes [...] by mouth ity of tablet 23:00: daily. [place] [address] Medical Branch atorvastati 2020-0 Yes 40mg Take 40 mg Univers n 40 mg 3-03 by mouth ity of tablet 23:00: at [place] [address] bedtime. Medical Branch NaCl 0.9% 2020-0 Yes [...] by ity of mEq packet 23:00: mouth [place] 52 daily. Medical Branch Cholecalcif 2020-0 Yes Take by Un mel ann, 3-03 mouth. ity of Vitamin D3, 23:00: [place] 2,000 unit 52 Medical capsule Branch metoprolol 2020-0 Yes 12.5mg Take 12.5 Univers tartrate 3-03 mg by ity of 12.5 mg 23:00: mouth 2 [place] 52 (two) Medical times Branch daily. MULTIVITAMI 2020-0 Yes Take by Un mel N ORAL 3-03 mouth. ity of 23:00: [place] [address] Medical Branch thiamine 2020-0 Yes 100mg Take 100 Univ ers (VITAMIN 3-03 mg by ity of B-1) 100 mg 23:00: mouth [place] tablet 52 daily. Medical Branch aspirin 81 2020-0 Yes 81mg Take 81 mg U nivers mg chewable 3-03 by mouth ity of tablet 23:00: daily. [place] [address] Medical Branch atorvastati 2019-0 Yes 40mg Take 40 mg Univers n 40 mg 3-03 by mouth ity of tablet 23:00: at [place] [address] bedtime. Medical Branch NaCl 0.9% 2019-0 Yes [...] mg 00 on [facility] 01/16/20 at Branch 2100, Until Discontinu ed, Routine ranolazine 2019-0 2020- No [id number] 500mg Take 1 Univers 500 mg 12 01-16-03 tablet by ity of hr tablet 00:00: 04:59 mouth [place] 00 :00 every 12 Medical (twelve) Branch hours for 30 days. ranolazine 2020-0 2020- No [id number] 500mg Take 1 Univers 500 mg 12 01-16 04-03 tablet by ity of hr tablet 00:00: 04:59 mouth [place] 00 :00 every 12 Medical (twelve) Branch hours for 30 days. ranolazine 2020-0 2020- No [id number] 500mg Take 1 Univers 500 mg 12 - 04-03 tablet by ity of hr tablet 00:00: 04:59 mouth [place] 00 :00 every 12 Medical (twelve) Branch hours for 30 days. ranolazine 2020-0 2020- No [id number] 500mg Take 1 Univers 500 mg 12 [...] First dose [place] tablet 12.5 00 on [facility] Medica l mg 01/16/20 at Branch 0800, Until Discontinu ed, Routine Sliding 2020-0 Yes Subcutaneo Univ ers Scale 3-02 us, Q6H, ity of Insulin-Reg 12:00: First dose [place] ular + Fsbg 00 on [facility] Medica l Testing 01/16/20 at Branch [...] 25 mL, Univ ers % in water 3 Slow IV ity of (D50W) 10:52: Push, PRN, [place] injection 33 Starting Medica l 25 mL Thu01/16/20 Branch at 0452, Until Discontinu ed, ADAMA, [...] IV Push, ity of (PF)) 07:55: Q6HPRN, [place] injection 4 01 Starting Medi birdie mg 01/16/20 Branch at 0155, Until Discontinu ed, Routine, Nausea and Vomiting (N/V) morpHINE 0 2020- No 2mg 2 mg, Slow Un mel injection 2 01-15 0303 IV Push, ity of mg 07:54: 07:53 Q6HPRN, [place] 55 :55 Starting Medical 01/16/20 Branch at 0154, Until Thu01/17/20 at 0153, Routine, Pain (scale 7-10) traMADol 2019-0 2020- No 50mg 50 mg, Univer s (ULTRAM) 01-15 03-04 Oral, ity of tablet 50 07:54: 07:53 Q8HPN, [facility] [place] [facility] :47 Starting Medical 01/16/20 Branch at 0154, Until Thu01/18/20 at 0153, Routine, Pain (scale 4-6) acetaminoph 2019-0 Yes 650mg 650 mg, Un mel en 01-15 Oral, ity of (TYLENOL) 07:54: Q6HPR, [place] tablet 650 44 Starting Medic al mg [facility] 01/16/20 Branch at 0154, Until Discontinu ed, [...] 2019-0 2020- No 4000U 4,000 Univers 1000 3-02 03-02 Units, IV ity of unit/mL 05:45: 05:47 Push, [place] injection 00 :00 ONCE, 1 Medical Soln 4,000 dose, [place] [facility] [place] Units 01/15/20 at 2345, ADAMA furosemide 2018-11 Yes [id number] 40mg Take 1 Univers 40 mg 0-26 tablet by ity of tablet 00:00: mouth [place] 00 daily. Medical Branch furosemide 2018-11 Yes [id number] 40mg Take 1 Univers 40 mg 0-26 tablet by ity of tablet 00:00: mouth [place] 00 daily. Medical Branch furosemide 2018-11 Yes [id number] 40mg Take 1 Univers 40 mg 0-26 tablet by ity of tablet 00:00: mouth [place] 00 daily. Medical Branch furosemide 2018-11 Yes [id number] 40mg Take 1 Univers 40 mg 0-26 tablet by ity of tablet 00:00: mouth [place] 00 daily. Medical Branch furosemide 2018-11 2020- No [id number] 40mg Take 1 Univers 40 mg 0-26 04-17 tablet by ity of tablet 00:00: 00:00 mouth [place] 00 :00 daily. Medical Branch magnesium 2018-11 Yes [id number] 400mg Take 400 Univers oxide 420 0-23 mg by ity of mg Tab 00:00: mouth [place] 00 daily. Medical Branch magnesium 2018-11 Yes [id number] 400mg Take 400 Univers oxide 420 0-23 mg by ity of mg Tab 00:00: mouth [place] 00 daily. Medical Branch magnesium 2018-11 Yes [id number] 400mg Take 400 Univers oxide 420 0-23 mg by ity of mg Tab 00:00: mouth [place] 00 daily. Medical Branch magnesium 2018-11 Yes [id number] 400mg Take 400 Univers oxide 420 0-23 mg by ity of mg Tab 00:00: mouth [place] 00 daily. Medical Branch magnesium 2019- Yes [id number] 400mg Take 400 Univers oxide 420 0-23 mg by ity of mg Tab 00:00: mouth [place] 00 daily. [facility] Branch magnesium 2019- Yes [id number] 400mg Take 400 Univers oxide 420 0-23 mg by ity of mg Tab 00:00: mouth [place] 00 daily. [facility] Branch magnesium 2018- 2020- No [id number] 400mg Take 400 Univers oxide 420 0-23 04-22 mg by ity of mg Tab 00:00: 00:00 mouth [place] 00 :00 daily. [facility] Insulin 2019-0 Yes [id number] 30U inject 30 Univers Glargine 9-11 Units ity of 100 unit/mL 00:00: under the [place] (3 mL) 00 skin every Medical injection morning. Branch Insulin 2018- Yes [id number] 30U inject 30 Univers Glargine 9-11 Units ity of 100 unit/mL 00:00: under the [place] (3 mL) 00 skin every Medical injection morning. Branch Insulin 2018- Yes [id number] 30U inject 30 Univers Glargine 9-11 Units ity of 100 unit/mL 00:00: under the [place] (3 mL) 00 skin every Medical injection morning. Branch Insulin 2018-0 Yes [id number] 30U inject 30 Univers Glargine 9-11 Units ity of 100 unit/mL 00:00: under the [place] (3 mL) 00 skin every Medical injection morning. Branch Insulin 2019-0 Yes [id number] 30U inject 30 Univers Glargine 9-11 Units ity of 100 unit/mL 00:00: under the [place] (3 mL) 00 skin every Medical injection morning. Branch Insulin 2019-0 Yes [id number] 30U inject 30 Univers Glargine 9-11 Units ity of 100 unit/mL 00:00: under the [place] (3 mL) 00 skin every Medical injection morning. Branch Insulin 2019-0 Yes [id number] 30U inject 30 Univers Glargine 9-11 Units ity of 100 unit/mL 00:00: under the [place] (3 mL) 00 skin every Medical injection morning. Branch Insulin 2018-0 2020- No [id number] 30U inject 30 Univers Glargine 9-11 04-22 [...] mg under ity of 15:26: the skin. [place] [address] Medical Branch Cholecalcif Yes Take by Un mel ann, 5-10 mouth. ity of Vitamin D3, 15:26: [place] 2,000 unit Medical capsule Branch metoprolol Yes 12.5mg Take 12.5 Univers tartrate 5-10 mg by ity of 12.5 mg 15:26: mouth 2 [place] [address] (two) Medical times Branch daily. MULTIVITAMI Yes Take by Un mel N ORAL 5-10 mouth. ity of 15:26: [place] [address] Medical Branch thiamine Yes 100mg Take 100 Univ ers (VITAMIN 5-10 mg by ity of B-1) 100 mg 15:26: mouth [place] tablet 43 daily. Medical Branch aspirin 81 Yes 81mg Take 81 mg U nivers mg chewable 5-10 by mouth ity of tablet 15:26: daily. [place] [address] Medical Branch atorvastati Yes 40mg Take 40 mg Univers n 40 mg 5-10 by mouth ity of tablet 15:26: at [place] 43 bedtime. Medical Branch furosemide 0 Yes 40mg Take 40 mg U nivers 40 mg 5-10 by mouth ity of tablet 15:26: daily. [place] [address] Medical Branch NaCl 0.9% 0 Yes 10mL Inject 10 Uni vers (NS) Soln 5-10 mL ity of 10 mL with 15:26: intravenou [place] sodium 43 sly once Medical chloride now. Branch 2.5 mEq/mL SolP 17.125 mEq memantine-d Yes 1{capsu Take 1 U nivers onepezil 5-10 le} capsule by ity o f (NAMZARIC) 15:26: mouth [place] 28-10 mg 43 daily. Medical CSpX Branch enoxaparin 2018-0 Yes 30mg inject 30 Un mel injection 5-10 mg under ity of 15:26: the skin. [place] [address] Medical Branch Cholecalcif 2018-0 Yes Take by Un mel ann, 5-10 mouth. ity of Vitamin D3, 15:26: [place] 2,000 unit 43 Medical capsule Branch metoprolol 2018-0 Yes 12.5mg Take 12.5 Univers tartrate 5-10 mg by ity of 12.5 mg 15:26: mouth 2 [place] 43 (two) Medical times Branch daily. MULTIVITAMI 0 Yes Take by Un mel N ORAL 5-10 mouth. ity of 15:26: [place] [address] Medical Branch thiamine 0 Yes 100mg Take 100 Univ ers (VITAMIN 5-10 mg by ity of B-1) 100 mg 15:26: mouth [place] tablet 43 daily. Medical Branch aspirin 81 0 Yes 81mg Take 81 mg U nivers mg chewable 5-10 by mouth ity of tablet 15:26: daily. [place] [address] Medical Branch atorvastati 0 Yes 40mg Take 40 mg Univers n 40 mg 5-10 by mouth ity of tablet 15:26: at [place] 43 bedtime. Medical Branch furosemide 0 Yes 40mg Take 40 mg U nivers 40 mg 5-10 by mouth ity of tablet 15:26: daily. [place] [address] Medical Branch NaCl 0.9% 0 Yes 10mL Inject 10 Uni vers (NS) Soln 5-10 mL ity of 10 mL with 15:26: intravenou [place] sodium 43 sly once Medical chloride now. Branch 2.5 mEq/mL SolP 17.125 mEq insulin 2018-0 Yes [id number] 4U inject 4 U nivers lispro, 5-10 Units ity of human, 100 00:00: under the [place] unit/mL 00 skin 3 Medical injection (three) Branch times daily before meals. insulin 2018-0 Yes [id number] 4U inject 4 U nivers lispro, 5-10 Units ity of human, 100 00:00: under the [place] unit/mL 00 skin 3 Medical injection (three) Branch times daily before meals. insulin 2018- Yes [id number] 4U inject 4 U nivers lispro, 5-10 Units ity of human, 100 00:00: under the [place] unit/mL 00 skin 3 Medical injection (three) Branch times daily before meals. insulin 2019-0 Yes [id number] 4U inject 4 U nivers lispro, 5-10 Units ity of human, 100 00:00: under the [place] unit/mL 00 skin 3 Medical injection (three) Branch times daily before meals. insulin 2019-0 Yes [id number] 4U inject 4 U nivers lispro, 5-10 Units ity of human, 100 00:00: under the [place] unit/mL 00 skin 3 Medical injection (three) Branch times daily before meals. insulin 2018-0 Yes [id number] 4U inject 4 U nivers lispro, 5-10 Units ity of human, 100 00:00: under the [place] unit/mL 00 skin 3 Medical injection (three) Branch times daily before meals. Insulin 2018-0 Yes [id number] 18U inject Uni vers Glargine 5-10 18-24 ity of 100 unit/mL 00:00: Units [place] (3 mL) 00 under the Medical injection skin every Bran ch morning. insulin 2018-0 Yes [id number] 4U inject 4 U nivers lispro, 5-10 Units ity of human, 100 00:00: under the [place] unit/mL 00 skin 3 Medical injection (three) Branch times daily before meals. insulin 2018-0 Yes [id number] 4U inject 4 U nivers lispro, 5-10 Units ity of human, 100 00:00: under the [place] unit/mL 00 skin 3 Medical injection (three) Branch times daily before meals. insulin 2018-0 Yes [id number] 4U inject 4 U nivers lispro, 5-10 Units ity of human, 100 00:00: under the [place] unit/mL 00 skin 3 Medical injection (three) Branch times daily before meals. insulin 2019-0 Yes [id number] 4U inject 4 U nivers lispro, 5-10 Units ity of human, 100 00:00: under the [place] unit/mL 00 skin 3 Medical injection (three) Branch times daily before meals. insulin 2018-0 Yes [id number] 4U inject 4 U nivers lispro, 5-10 Units ity of human, 100 00:00: under the [place] unit/mL 00 skin 3 Medical injection (three) Branch times daily before meals. insulin 2019- No [id number] 4U inject 4 Univers lispro, 5-10 05-07 Units ity of human, 100 00:00: 00:00 under the [place] unit/mL 00 :00 skin 3 Medical injection (three) Branch times daily before meals. insulin 2019- No [id number] 4U inject 4 Univers lispro, 5-10 05-07 Units ity of human, 100 00:00: 00:00 under the [place] unit/mL 00 :00 skin 3 Medical injection (three) Branch times daily before meals. Insulin 2018- No [id number] 18U inject Un mel Glargine 03-25 18-24 ity of 100 unit/mL 00:00: 00:00 Units [place] (3 mL) 00 :00 under the Medical injection skin every Bran ch morning. folic Yes Take by Univers acid/vit B 3-08 mouth. ity of complex and 16:39: [place] (B 29 Medical COMPLEX-VIT Branch RAZA C-FOLIC ACID ORAL) potassium Yes 20meq Take 20 Univ ers chloride 20 3-08 mEq by ity of mEq packet 16:39: mouth [place] 29 daily. Medical Branch folic Yes Take by Univers acid/vit B 3-08 mouth. ity of complex and 16:39: [place] C (B 29 Medical COMPLEX-VIT Branch RAZA C-FOLIC ACID ORAL) potassium 0 Yes 20meq Take 20 Univ ers chloride 20 3-08 mEq by ity of mEq packet 16:39: mouth [place] 29 daily. Medical Branch Isosorbide Isosorbide Yes Anneliese 1 tablet Common Mononitrate Mononitrate [facility] morning [facility] Lyrica Lyrica Yes [place] 1 capsule Commo n Millender [facility] Potassium Potassium Yes Ann[place]ies[place] 1 capsule Common Chloride Chloride [facility] with food [facility] Tylenol # 3 Tylenol # 3 Yes Anneliese one tab Common [facility] Vitamin D-3 Vitamin D-3 Yes [place] 2 capsule Common [facility] Humalog Humalog Yes Anneliese as Common [facility] directed [facility] Aspir-Low Aspir-Low Yes [facility] [facility] Namzaric Namzaric Yes Annelies[place] 1 Common [facility] Zyprexa Zyprexa Yes [place] 1 tablet Comm on [facility] Vitamin B-1 Vitamin B-1 Yes Annelies[place] 1 tablet Common [facility] Multivitami Multivitami Yes Anneliese as Common n n Millender directed [facility] Lantus Lantus Yes Anneliese as Common [facility] directed [facility] Lasix Lasix Yes [place] 1 tablet Common [facility] Immunizations Ordered Filled Immunization Date Status Comments [facility] e Immunization Name Name SARS-COV-2 COVID-19 2021-09-16 Completed Unive rsity of MODERNA VACCINE 00:00:00 [facility] SARS-COV-2 COVID-19 2021-09-16 Completed Unive rsity of MODERNA VACCINE 00:00:00 [facility] SARS-COV-2 COVID-19 2021-09-16 Completed Unive rsity of MODERNA VACCINE 00:00:00 [facility] SARS-COV-2 COVID-19 2021-09-16 Completed Unive rsity of MODERNA VACCINE 00:00:00 [facility] SARS-COV-2 COVID-19 2021-09-16 Completed Unive rsity of MODERNA VACCINE 00:00:00 [facility] SARS-COV-2 COVID-19 2021-08-17 Completed Unive rsity of MODERNA VACCINE 00:00:00 [facility] Influenza High Dose 2021-08-17 Completed Unive rsity of 00:00:00 [facility] SARS-COV-2 COVID-19 2021-08-17 Completed Unive rsity of MODERNA VACCINE 00:00:00 [facility] Influenza High Dose 2021-08-17 Completed Unive rsity of 00:00:00 [facility] SARS-COV-2 COVID-19 2021-08-17 Completed Unive rsity of MODERNA VACCINE 00:00:00 [facility] Influenza High Dose 2021-08-17 Completed Unive rsity of 00:00:00 [facility] SARS-COV-2 COVID-19 2021-08-17 Completed Unive rsity of MODERNA VACCINE 00:00:00 [facility] Influenza High Dose 2021-08-17 Completed Unive rsity of 00:00:00 [facility] SARS-COV-2 COVID-19 2021-08-17 Completed Unive rsity of MODERNA VACCINE 00:00:00 [facility] Influenza High Dose 2021-08-17 Completed Unive rsity of 00:00:00 [facility] Zoster(Zostavax)( 2020-09-14 Completed Unive rsity of ingles) 00:00:00 [facility] Zoster(Zostavax)( 2020-09-14 Completed Unive rsity of ingles) 00:00:00 [facility] Zoster(Zostavax)( 2020-09-14 Completed Unive rsity of ingles) 00:00:00 [facility] Zoster(Zostavax)( 2020-09-14 Completed Unive rsity of ingles) 00:00:00 [facility] Zoster(Zostavax)( 2020-09-14 Completed Unive rsity of ingles) 00:00:00 [facility] Influenza High Dose 2020-07-13 Completed Unive rsity of 00:00:00 [facility] Influenza High Dose 2020-07-13 Completed Unive rsity of 00:00:00 [facility] Influenza High Dose 2020-07-13 Completed Unive rsity of 00:00:00 [facility] Influenza High Dose 2020-07-13 Completed Unive rsity of 00:00:00 [facility] Influenza High Dose 2020-07-13 Completed Unive rsity of 00:00:00 [facility] Influenza High Dose 2019-09-15 Completed Unive rsity of 00:00:00 [facility] Influenza High Dose 2019-09-15 Completed Unive rsity of 00:00:00 [facility] Influenza High Dose 2019-09-15 Completed Unive rsity of 00:00:00 [facility] Influenza High Dose 2019-09-15 Completed Unive rsity of 00:00:00 [facility] Influenza High Dose 2019-09-15 Completed Unive rsity of 00:00:00 [facility] Influenza Virus 2018-09-09 Completed Universit y of Vaccine 00:00:00 [facility] Influenza Virus 2018-09-09 Completed Universit y of Vaccine 00:00:00 [facility] Influenza Virus 2018-09-09 Completed Universit y of Vaccine 00:00:00 [facility] Influenza Virus 2018-09-09 Completed Universit y of Vaccine 00:00:00 [facility] Influenza Virus 2018-09-09 Completed Universit y of Vaccine 00:00:00 [facility] Influenza Virus 2018-09-09 Completed Universit y of Vaccine 00:00:00 [facility] Influenza Virus 2018-09-09 Completed Universit y of Vaccine 00:00:00 [facility] Influenza Virus 2018-09-09 Completed Universit y of Vaccine 00:00:00 [facility] Influenza Virus 2018-09-09 Completed Universit y of Vaccine 00:00:00 [facility] Influenza Virus 2018-09-09 Completed Universit y of Vaccine 00:00:00 [facility] Influenza Virus 2018-09-09 Completed Universit y of Vaccine 00:00:00 [facility] Influenza Virus 2018-09-09 Completed Universit y of Vaccine 00:00:00 [facility] Influenza Virus 2018-09-09 Completed Universit y of Vaccine 00:00:00 [facility] Influenza Virus 2018-09-09 Completed Universit y of Vaccine 00:00:00 [facility] Influenza Virus 2018-09-09 Completed Universit y of Vaccine 00:00:00 [facility] Influenza Virus 2018-09-09 Completed Universit y of Vaccine 00:00:00 [facility] Influenza Virus 2018-09-09 Completed Universit y of Vaccine 00:00:00 [facility] Influenza Virus 2018-09-09 Completed Universit y of Vaccine 00:00:00 [facility] Influenza Virus 2018-09-09 Completed Universit y of Vaccine 00:00:00 [facility] Influenza Virus 2018-09-09 Completed Universit y of Vaccine 00:00:00 [facility] Influenza Virus 2018-09-09 Completed Universit y of Vaccine 00:00:00 [facility] Influenza Virus 2018-09-09 Completed Universit y of Vaccine 00:00:00 [facility] Branch Influenza Virus 2018-09-09 Completed Universit y of Vaccine 00:00:00 [facility] Branch Pneumococcal 2016-11-02 Completed University o f [...] Time Observation Value Comments Source Systolic blood 2022-04-17 03:35:00 110 mm[Hg] Univer sity [facility] Diastolic blood 2022-04-17 03:35:00 77 mm[Hg] Unive [facility] Heart rate 2022-04-17 03:35:00 98 /min [facility] Oxygen saturation in 2022-04-17 03:35:00 99 /min [facility] Arterial blood by [facility] Pulse oximetry [place] Body temperature 2022-04-17 03:25:00 37.33 Priyanka [facility] Respiratory rate 2022-04-17 03:25:00 18 /min [facility] Body height 2022-04-17 03:25:00 170.2 cm [facility] Body weight 2022-04-17 03:25:00 77.111 kg [facility] BMI 2022-04-17 03:25:00 26.63 kg/m2 [facility] Systolic blood 2022-03-01 16:36:00 143 mm[Hg] Univer sity [facility] Diastolic blood 2022-03-01 16:36:00 80 mm[Hg] Unive rsity [facility] Heart rate 2022-03-01 16:36:00 98 /min [facility] [place] [facility] Respiratory rate 2022-03-01 16:36:00 16 /min Univ ersity of [place] [facility] Oxygen saturation in 2022-03-01 16:36:00 97 /min University of Arterial blood by [facility] birdie Pulse oximetry Branch Body temperature 2022-03-01 11:42:00 36.94 Priyanka Univ ersity [facility] [place] [facility] Body height 2022-03-01 11:42:00 170.2 cm [facility] [place] [facility] Body weight 2022-03-01 11:42:00 77.111 kg [facility] [place] [facility] BMI 2022-03-01 11:42:00 26.63 kg/m2 [facility] [place] [facility] Systolic blood 2021-11-02 17:17:00 109 mm[Hg] Univer sity of pressure [place] [facility] Diastolic blood 2021-11-02 17:17:00 67 mm[Hg] Unive rsity of pressure [place] [facility] Heart rate 2021-11-02 17:17:00 84 /min [facility] [place] [facility] Body temperature 2021-11-02 17:17:00 36.44 Priyanka [facility] [place] [facility] Respiratory rate 2021-11-02 17:17:00 18 /min Univ [facility] [place] [facility] Oxygen saturation in 2021-11-02 17:17:00 95 /min University of Arterial blood by [facility] Pulse oximetry Branch Body weight 2021-11-02 09:17:00 79.969 kg [facility] BMI 2021-11-02 09:17:00 27.61 kg/m2 [facility] Body height 2021-10-31 05:46:00 170.2 cm [facility] Systolic blood 2021-04-25 22:36:00 118 mm[Hg] [facility] Diastolic blood 2021-04-25 22:36:00 70 mm[Hg] [facility] Heart rate 2021-04-25 22:36:00 68 /min [facility] Respiratory rate 2021-04-25 22:36:00 18 /min [facility] Oxygen saturation in 2021-04-25 22:36:00 99 /min [facility] blood by [facility] Pulse oximetry Branch Body temperature 2021-04-25 15:42:00 36.44 Priyanka [facility] Body weight 2021-04-25 15:42:00 81.647 kg [facility] BMI 2021-04-25 15:42:00 27.37 kg/m2 [facility] Systolic blood 2020-06-26 10:00:00 124 mm[Hg] [facility] Diastolic blood 2020-06-26 10:00:00 78 mm[Hg] [facility] Respiratory rate 2020-06-26 10:00:00 18 /min [facility] Oxygen saturation in 2020-06-26 10:00:00 98 /min [facility] blood by [facility] Pulse oximetry Branch Heart rate 2020-06-26 08:56:00 98 /min [facility] Body temperature 2020-06-26 08:56:00 37.17 Priyanka [facility] Body weight 2020-06-26 08:56:00 74.844 kg [facility] BMI 2020-06-26 08:56:00 25.09 kg/m2 [facility] Systolic blood 2020-06-26 10:00:00 124 mm[Hg] [facility] Diastolic blood 2020-06-26 10:00:00 78 mm[Hg] [facility] Respiratory rate 2020-06-26 10:00:00 18 /min [facility] Oxygen saturation in 2020-06-26 10:00:00 98 /min [facility] by [facility] Pulse oximetry Branch Heart rate 2020-06-26 08:56:00 98 /min [facility] Body temperature 2020-06-26 08:56:00 37.17 Priyanka [facility] Body weight 2020-06-26 08:56:00 74.844 kg [facility] BMI 2020-06-26 08:56:00 25.09 kg/m2 [facility] Systolic blood 2020-05-24 15:47:29 166 mm[Hg] [facility] Diastolic blood 2020-05-24 15:47:29 89 mm[Hg] [facility] Heart rate 2020-05-24 15:47:29 86 /min [facility] Respiratory rate 2020-05-24 15:47:29 16 /min [facility] Oxygen saturation in 2020-05-24 15:47:29 97 /min [facility] by [facility] Pulse oximetry Branch Body temperature 2020-05-24 11:44:00 36.94 Priyanka [facility] Body height 2020-05-24 11:44:00 172.7 cm [facility] Body weight 2020-05-24 11:44:00 74.844 kg [facility] BMI 2020-05-24 11:44:00 25.09 kg/m2 [facility] Systolic blood 2020-05-24 15:47:29 166 mm[Hg] [facility] Diastolic blood 2020-05-24 15:47:29 89 mm[Hg] [facility] Heart rate 2020-05-24 15:47:29 86 /min [facility] Respiratory rate 2020-05-24 15:47:29 16 /min [facility] Oxygen saturation in 2020-05-24 15:47:29 97 /min [facility] by [facility] Pulse oximetry Branch Body temperature 2020-05-24 11:44:00 36.94 Priyanka [facility] Body height 2020-05-24 11:44:00 172.7 cm [facility] Body weight 2020-05-24 11:44:00 74.844 kg [facility] BMI 2020-05-24 11:44:00 25.09 kg/m2 [facility] Systolic blood 2020-03-24 02:31:00 127 mm[Hg] [facility] Diastolic blood 2020-03-24 02:31:00 72 mm[Hg] [facility] Heart rate 2020-03-24 02:31:00 69 /min [facility] Body temperature 2020-03-24 02:31:00 36.39 Priyanka [facility] Respiratory rate 2020-03-24 02:31:00 18 /min [facility] Oxygen saturation in 2020-03-24 02:31:00 97 /min [facility] blood by [facility] birdie Pulse oximetry Branch Systolic blood 2020-03-23 21:35:00 100 mm[Hg] [facility] Diastolic blood 2020-03-23 21:35:00 59 mm[Hg] [facility] Heart rate 2020-03-23 21:35:00 79 /min [facility] Body temperature 2020-03-23 21:35:00 36.78 Priyanka [facility] Respiratory rate 2020-03-23 21:35:00 18 /min [facility] Oxygen saturation in 2020-03-23 21:35:00 99 /min [facility] by [facility] Pulse oximetry Branch Body weight 2020-03-23 09:41:00 76.613 kg [facility] BMI 2020-03-23 09:41:00 26.45 kg/m2 [facility] Body height 2020-03-23 03:43:00 170.2 cm [facility] Systolic blood 2020-03-21 20:55:00 128 mm[Hg] [facility] Diastolic blood 2020-03-21 20:55:00 61 mm[Hg] [facility] Heart rate 2020-03-21 20:55:00 75 /min [facility] Respiratory rate 2020-03-21 20:55:00 10 /min [facility] Oxygen saturation in 2020-03-21 20:55:00 98 /min [facility] by [facility] Pulse oximetry Branch Body temperature 2020-03-21 20:03:00 37.83 Priyanka [facility] Body height 2020-03-21 20:03:00 170.2 cm [facility] Body weight 2020-03-21 20:03:00 76.204 kg [facility] BMI 2020-03-21 20:03:00 26.31 kg/m2 [facility] Systolic blood 2020-03-07 20:50:00 118 mm[Hg] [facility] Diastolic blood 2020-03-07 20:50:00 65 mm[Hg] [facility] Heart rate 2020-03-07 20:50:00 85 /min [facility] Body temperature 2020-03-07 20:50:00 36.39 Priyanka [facility] Respiratory rate 2020-03-07 20:50:00 18 /min [facility] Oxygen saturation in 2020-03-07 20:50:00 95 /min [facility] by [employer] [place] [employer] bird[facility] Pulse oximetry Branch Body height 2020-03-05 02:35:00 172.7 cm [facility] Body weight 2020-03-05 02:35:00 73.483 kg [facility] BMI 2020-03-05 02:35:00 24.63 kg/m2 [facility] Systolic blood 2020-03-02 15:49:00 122 mm[Hg] [facility] Diastolic blood 2020-03-02 15:49:00 81 mm[Hg] [facility] Heart rate 2020-03-02 15:49:00 89 /min [facility] Body temperature 2020-03-02 15:49:00 37.06 Priyanka [facility] Respiratory rate 2020-03-02 15:49:00 19 /min [facility] Oxygen saturation in 2020-03-02 15:49:00 96 /min [facility] [employer] [place] [employer] [facility] Pulse oximetry Branch Body height 2020-03-01 00:54:00 170.2 cm [facility] Body weight 2020-03-01 00:54:00 76.975 kg [facility] BMI 2020-03-01 00:54:00 26.58 kg/m2 [facility] Systolic blood 2020-01-17 21:08:00 116 mm[Hg] [facility] Diastolic blood 2020-01-17 21:08:00 78 mm[Hg] [facility] Heart rate 2020-01-17 21:08:00 88 /min [facility] Body temperature 2020-01-17 21:08:00 36.72 Priyanka [facility] Respiratory rate 2020-01-17 21:08:00 18 /min [facility] Oxygen saturation in 2020-01-17 21:08:00 98 /min [facility] blood by [facility] Pulse oximetry [place] Body height 2020-01-16 06:21:00 172.7 cm [facility] Body weight 2020-01-16 04:35:00 83.462 kg [facility] BMI 2020-01-16 04:35:00 27.98 kg/m2 [facility] Procedures Procedure Date / Time Performing Clinician Source Performed CONSENT/REFUSAL FOR 2022-04-17 03:07:20 Doctor Unassrose mary, [facility] DIAGNOSIS AND TREATMENT [facility] XR LUMBAR SPINE 2 VW 2022-03-01 14:18:00 Angelika Aguilar [facility] EXTERNAL PROVIDER RECORDS 2021-11-19 06:01:00 Doctor [place], [facility] Rayle [facility] POCT GLUCOSE (AUTOMATED) 2021-11-02 22:49:00 Aida Shah [facility] POCT GLUCOSE (AUTOMATED) 2021-11-02 17:06:00 Aida Shah [facility] POCT GLUCOSE (AUTOMATED) 2021-11-02 13:30:00 Aida Shah [facility] TROPONIN I 2021-11-02 09:29:00 Alexandra Hdz [facility] BASIC METABOLIC PANEL 2021-11-02 09:29:00 Sridhar Gordon [facility] (NA, K, CL, CO2, GLUCOSE, Medica l Branch BUN, CREATININE, CA) CBC WITH DIFF 2021-11-02 09:29:00 Heidi Sridhar [facility] N-TERMINAL PRO-BNP 2021-11-02 09:29:00 Alexandra Hdz [facility] POCT GLUCOSE (AUTOMATED) 2021-11-02 01:27:00 [place], Aida [facility] POCT GLUCOSE (AUTOMATED) 2021-11-01 17:37:00 PriscillaAida monson [facility] POCT GLUCOSE (AUTOMATED) 2021-11-01 13:40:00 AlyssaAida [facility] POCT GLUCOSE (AUTOMATED) 2021-11-01 01:10:[facility] 2021-10-31 22:28:00 [facility]SE (AUTOMATED) 2021-10-31 17:29:00 [facility] 2021-10-31 16:25:00 Alexandra Hdz [facility] TRANSTHORACIC ECHO (TTE) 2021-10-31 15:53:00 Alexandra Hdz [facility] COMPLETE W/ CONTRAST Medical [facility] POCT GLUCOSE (AUTOMATED) 2021-10-31 13:39:00 Martha Drake [facility] TROPONIN I 2021-10-31 10:08:00 [facility] BASIC METABOLIC PANEL 2021-10-31 10:08:00 [facility] (NA, K, CL, CO2, GLUCOSE, Medica l Branch BUN, CREATININE, CA) LIPID PANEL ([id number])(TOTAL 2021-10-31 10:08:00 Alexandra Hdz [facility] CHOLESTEROL, [facility] TRIGLYCERIDES, HDL) CBC WITH DIFF 2021-10-31 10:08:00 [facility] URINALYSIS 2021-10-31 10:08:00 [facility] N-TERMINAL PRO-BNP 2021-10-31 10:08:00 Alexandra Hdz [facility] TROPONIN I 2021-10-31 06:17:00 [facility] XR CHEST 1 VW 2021-10-31 01:30:56 Martha Drake [facility] LIPASE 2021-10-31 01:25:00 Martha Drake [facility] TROPONIN I 2021-10-31 01:25:00 Martha Drake [facility] COMP. METABOLIC PANEL 2021-10-31 01:25:00 Martha Drake [facility] ([id number]) Medical Branch CBC WITH DIFF 2021-10-31 01:25:00 Martha Drake [facility] GLYCOSYLATED HEMOGLOBIN 2021-10-31 01:25:00 [facility] (A1C) [facility] PROTHROMBIN TIME / INR 2021-10-31 01:25:00 Martha Drake [facility] ACTIVATED PARTIAL 2021-10-31 01:25:00 Martha Drake [facility] N-TERMINAL PRO-BNP 2021-10-31 01:25:00 Martha Drake [facility] COVID-19 (ID NOW RAPID 2021-10-31 01:25:00 Martha Drake [facility] TESTING) Medical Branch LAB ONLY COVID 2021-10-31 01:25:00 Martha Drake [facility] INTERPRETATION [facility] HB ECG ROUTINE & RHYTHM 2021-10-31 01:20:03 Martha Drake [facility] URINALYSIS 2021-04-25 21:01:00 Nallely Zhao [facility] XR LUMBAR SPINE 2 VW 2021-04-25 18:41:00 Nallely [facility] XR HIPS 2 VW LEFT 2021-04-25 18:41:00 Nallely Zhao [facility] CONSENT/REFUSAL FOR 2021-04-25 15:43:06 Doctor Unassigned, [facility] DIAGNOSIS AND TREATMENT [facility] CERVICAL SPINE WO 2020-06-26 09:35:01 Martha Drake [facility] CONTRAST [facility] CT LUMBAR SPINE WO 2020-06-26 09:35:01 [facility] CONTRAST [facility] Branch CT THORACIC SPINE WO 2020-06-26 09:35:01 Martha Drake [facility] CONTRAST [facility] UNILATERAL DUPLEX SCAN OF 2020-05-24 14:53:40 [facility] XR ANKLE 3+ VW LEFT 2020-05-24 13:22:26 Charanjit Heck [facility] HEPATIC FUNCTION PANEL 2020-05-24 13:13:00 Charanjit Heck [facility] ([id number]) (ALB,T.PRO,BILI Medical Branch T,BU/BC,ALT,AST,ALK PHOS) BASIC METABOLIC PANEL 2020-05-24 13:13:00 Charanjit Heck [facility] (NA, K, CL, CO2, GLUCOSE, Medica l Branch BUN, CREATININE, CA) CBC WITH DIFFERENTIAL 2020-05-24 13:13:00 Charanjit Heck [facility] PROTHROMBIN TIME / INR 2020-05-24 13:13:00 Charanjit Heck [facility] ACTIVATED PARTIAL 2020-05-24 13:13:00 Charanjit Heck [facility] THRMPLAS JACEK [facility] NOTICE OF PRIVACY 2020-05-24 11:38:26 Doctor Unassigned, [facility] PRACTICES [facility] [place] CONSENT/REFUSAL FOR 2020-05-24 11:35:52 Doctor Unassrose mary, [facility] DIAGNOSIS AND TREATMENT [facility] [place] POCT GLUCOSE (AUTOMATED) 2020-03-23 22:32:00 Jamel Flores [facility] POCT GLUCOSE (AUTOMATED) 2020-03-23 18:07:00 Jamel Flores [facility] POCT GLUCOSE (AUTOMATED) 2020-03-23 14:57:00 Jamel Flores [facility] ECHO ROUTINE W/DOPPLER 2020-03-23 13:33:57 Tereza Cano [facility] EKG-12 LEAD 2020-03-23 12:56:59 Jamel Flores [facility] MAGNESIUM 2020-03-23 11:15:00 Hannah Canodhi [facility] TROPONIN I 2020-03-23 11:15:00 Jerome [facility] BASIC METABOLIC PANEL 2020-03-23 11:15:00 [facility] (NA, K, CL, CO2, GLUCOSE, Medica l Branch BUN, CREATININE, CA) PROTHROMBIN TIME / INR 2020-03-23 11:15:00 Tereza Cano [facility] ACTIVATED PARTIAL 2020-03-23 11:15:00 Jerome [facility] EKG-12 LEAD 2020-03-23 07:51:19 Jamel Flores [facility] MAGNESIUM 2020-03-23 05:55:00 Jerome [facility] TROPONIN I 2020-03-23 05:55:00 Jerome [facility] BASIC METABOLIC PANEL 2020-03-23 05:55:00 Jerome [facility] (NA, K, CL, CO2, GLUCOSE, Medica l Branch BUN, CREATININE, CA) LIPID PANEL ([id number])(TOTAL 2020-03-23 05:55:00 Tereza Cano [facility] CHOLESTEROL, [facility] TRIGLYCERIDES, HDL) PROTHROMBIN TIME / INR 2020-03-23 02:55:00 Sallie Eckert [facility] ACTIVATED PARTIAL 2020-03-23 02:55:00 Babar [facility] XR CHEST 2 VW 2020-03-23 01:52:37 Esteban Singletary [facility] CORONAVIRUS COVID-19 2020-03-23 00:50:00 Esteban Singletary [facility] TESTING [facility] FERRITIN SERUM 2020-03-22 23:36[facility]00 [facility] 2020-03-22 23:36:00 Esteban Singletary [facility] COMP. METABOLIC PANEL 2020-03-22 23:36:00 Esteban Singletary [facility] ([id number]) [facility] IRON PANEL 2020-03-22 23:36:00 Jerome [facility] CBC WITH DIFFERENTIAL 2020-03-22 23:36:00 Esteban Singletary [facility] N-TERMINAL PRO-BNP 2020-03-22 23:36:00 Esteban Singletary [facility] EKG-12 LEAD 2020-03-22 23:08:53 [facility] E[facility]-12 LEAD 2020-03-22 23:08:15 Danielle [facility] XR CHEST 1 VW 2020-03-21 20:42:35 Myles Harry [facility] LACTIC ACID WHOLE BLOOD 2020-03-21 20:38:00 Myles [facility] LIPASE 2020-03-21 20:19:00 Myles Harry [facility] TROPONIN I 2020-03-21 20:19:00 Myles Harry [facility] COMP. METABOLIC PANEL 2020-03-21 20:19:00 Myles Harry [facility] ([id number] PROTHROMBIN TIME / INR 2020-03-21 20:19:00 Myles Harry [facility] N-TERMINAL PRO-BNP 2020-03-21 20:19:00 Myles Harry [facility] CORONAVIRUS COVID-19 2020-03-21 20:19:00 Myles Harry [facility] EKG-12 LEAD 2020-03-21 20:11:28 Myles Harry [facility] POCT GLUCOSE (AUTOMATED) 2020-03-07 20:56:00 Julio Cesar [employer] [facility] POCT GLUCOSE (AUTOMATED) 2020-03-07 15:34:00 Julio Cesar Ambassadorazra [employer] [facility] POCT GLUCOSE (AUTOMATED) 2020-03-07 12:56:00 Sarah Ad[facility] URIC ACID 2020-03-07 10:14:00 Holland Briscoe [facility] TROPONIN I 2020-03-07 10:14:00 Lulu Harris o [facility] BASIC METABOLIC PANEL 2020-03-07 10:14:00 Julio Cesar [facility] (NA, K, CL, CO2, GLUCOSE, Medica l Branch BUN, CREATININE, CA) CBC WITH DIFFERENTIAL 2020-03-07 10:14:00 Julio Cesar [facility] N-TERMINAL PRO-BNP 2020-03-07 10:14:00 [facility]) 2020-03-06 21:16:00 Edionrosalio [facility] POCT GLUCOSE (AUTOMATED) 2020-03-06 16:10:00 Edionrosalio [facility] POCT GLUCOSE (AUTOMATED) 2020-03-06 12:38:00 Edconsuelo [facility] TROPONIN I 2020-03-06 08:51:[facility]EL 2020-03-06 08:51:00 Edionrosalio [facility] (NA, K, CL, CO2, GLUCOSE, Medica l Branch BUN, CREATININE, CA) CBC WITH DIFFERENTIAL 2020-03-06 08:51:00 Julio Cesar [facility] POCT GLUCOSE (AUTOMATED) 2020-03-06 01:16:00 Edconsuelo [facility] TROPONIN I 2020-03-05 23:25:00 [facility]) 2020-03-05 21:14:00 Edionrosalio [facility] POCT GLUCOSE (AUTOMATED) 2020-03-05 16:39:00 Edionrosalio [facility] POCT GLUCOSE (AUTOMATED) 2020-03-05 12:47:00 Edionrosalio [facility] TROPONIN I 2020-03-05 09:50:00 [facility] BASIC METABOLIC PANEL 2020-03-05 09:50:00 Edconsuelo [facility] (NA, K, CL, CO2, GLUCOSE, Medica l Branch BUN, CREATININE, CA) CBC WITH DIFFERENTIAL 2020-03-05 09:50:00 Edionrosalio, [facility] EKG-12 LEAD 2020-03-05 00:36:54 [facility] 2020-03-05 00:31:03 [facility]ON[facility] COVID-19 2020-03-05 00:03:00 Charanjit Heck [facility] TESTING [facility] XR CHEST 1 VW 2020-03-04 23:58:59 Charanjit Heck [facility] LIPASE 2020-03-04 23:29:00 Charanjit Heck [facility] TROPONIN I 2020-03-04 23:29:00 Umang Charanjit [facility] HEPATIC FUNCTION PANEL 2020-03-04 23:29:00 Charanjit Heck [facility] ([id number]) (ALB,T.PRO,BILI Medical Branch T,BU/BC,ALT,AST,ALK PHOS) BASIC METABOLIC PANEL 2020-03-04 23:29:00 Charanjit Heck [facility] (NA, K, CL, CO2, GLUCOSE, Medica l Branch BUN, CREATININE, CA) CBC WITH DIFFERENTIAL 2020-03-04 23:29:00 Charanjit Heck [facility] PROTHROMBIN TIME / INR 2020-03-04 23:29:00 Charanjit Heck [facility] ACTIVATED PARTIAL 2020-03-04 23:29:00 [facility] N-TERMINAL PRO-BNP 2020-03-04 23:29:00 Charanjit Heck [facility] EKG-12 LEAD 2020-03-04 23:15:42 Charanjit Heck [facility] EKG-12 LEAD 2020-03-04 23:10:23 Charanjit Heck [facility] EMERGENCY DEPARTMENT 2020-03-04 05:01:00 Doctor Unassigned, [facility] DOCUMENTS [facility] POCT GLUCOSE (AUTOMATED) 2020-03-02 15:52:00 Lulu Harris [facility] POCT GLUCOSE (AUTOMATED) 2020-03-02 12:39:00 Lulu Harris [facility] MAGNESIUM 2020-03-02 08:57:00 Carolyn [facility] BASIC METABOLIC PANEL 2020-03-02 08:57:00 Carolyn [facility] (NA, K, CL, CO2, GLUCOSE, Medica l Branch BUN, CREATININE, CA) N-TERMINAL PRO-BNP 2020-03-02 08:57:00 Carolyn [facility] POCT GLUCOSE (AUTOMATED) 2020-03-01 20:39:00 Lulu Harris [facility] MAGNESIUM 2020-03-01 08:43:00 [facility] TROPONIN I 2020-03-01 08:43:00 Carolyn [facility] BASIC METABOLIC PANEL 2020-03-01 08:43:00 Lulu Harris [facility] (NA, K, CL, CO2, GLUCOSE, Medica l Branch BUN, CREATININE, CA) CBC WITH DIFFERENTIAL 2020-03-01 08:43:00 Steven Lulu [facility] N-TERMINAL PRO-BNP 2020-03-01 08:43:00 Carolyn [facility] VITAMIN B12, LEVEL 2020-03-01 03:49:00 Carolyn [facility] FOLATE 2020-03-01 03:49:00 Carolyn [facility] SEDIMENTATION RATE 2020-03-01 03:49:00 Carolyn [facility] POCT GLUCOSE (AUTOMATED) 2020-03-01 03:39:00 Lulu [facility] PHOSPHORUS 2020-03-01 02:28:00 Steven Lulu [facility] URIC ACID 2020-03-01 02:28:00 Carolyn [facility] TROPONIN I 2020-03-01 02:28:00 Carolyn [facility] HEPATIC FUNCTION PANEL 2020-03-01 02:28:00 Carolyn [facility] ([id number]) (ALB,T.PRO,BILI Medical Branch T,BU/BC,ALT,AST,ALK PHOS) PROTHROMBIN TIME / INR 2020-03-01 02:28:00 Ivory Leon [facility] N-TERMINAL PRO-BNP 2020-03-01 02:28:00 Lulu Harris [facility] PROCALCITONIN 2020-03-01 02:28:00 Carolyn alek [facility] EKG-12 LEAD 2020-03-01 01:54:29 Carolyn [facility] EKG-12 LEAD 2020-02-29 23:16:21 Bobo Urrutia [facility] XR CHEST 1 VW COVID 2020-02-29 23:14:25 Bobo Urrutia [facility] EKG-12 LEAD 2020-02-29 23:13:50 Bobo Urrutia [facility] LACTIC ACID WHOLE BLOOD 2020-02-29 22:21:00 Bobo Urrutia [facility] CORONAVIRUS COVID-19 2020-02-29 22:20:00 Bobo Urrutia [facility] TESTING [facility] CREATINE KINASE 2020-02-29 22:14:00 Carolyn [facility] URIC ACID 2020-02-29 22:14:00 Carolyn [facility] LIPASE 2020-02-29 22:14:00 Bobo Urrutia [facility] MAGNESIUM 2020-02-29 22:14:00 Carolyn [facility] TROPONIN I 2020-02-29 22:14:00 Bobo Urrutia [facility] THYROID STIMULATING 2020-02-29 22:14:00 [facility] HORMONE [facility] BASIC METABOLIC PANEL 2020-02-29 22:14:00 Bobo Urrutia [facility] (NA, K, CL, CO2, GLUCOSE, Medica l Branch BUN, CREATININE, CA) CBC WITH DIFFERENTIAL 2020-02-29 22:14:00 Bobo Urrutia [facility] GLYCOSYLATED HEMOGLOBIN 2020-02-29 22:14:00 Carolyn alek [facility] (A1C) [facility] N-TERMINAL PRO-BNP 2020-02-29 22:14:00 Ivory Leon [facility] EKG-12 LEAD 2020-02-29 21:59:12 [facility] 2020-02-29 21:48:49 Bobo Urrutia [facility] EMERGENCY DEPARTMENT 2020-02-29 05:01:00 Doctor Unassigned, [facility] DOCUMENTS [facility] POCT GLUCOSE (AUTOMATED) 2020-01-17 18:15:00 Edconsuelo [facility] TROPONIN I 2020-01-17 16:31:00 Julio Cesar [facility] ACTIVATED PARTIAL 2020-01-17 16:31:00 Carolyn [facility] POCT GLUCOSE (AUTOMATED) 2020-01-17 11:56:00 Julio Cesar [facility] TROPONIN I 2020-01-17 09:52:00 Julio Cesar [facility] BASIC METABOLIC PANEL 2020-01-17 09:52:00 [facility] (NA, K, CL, CO2, GLUCOSE, Medica l Branch BUN, CREATININE, CA) CBC WITH DIFFERENTIAL 2020-01-17 09:52:00 [facility] 2020-01-17 09:52:00 Julio Cesar [facility] POCT GLUCOSE (AUTOMATED) 2020-01-16 23:59:00 Julio Cesar [facility] EKG-12 LEAD 2020-01-16 22:15:50 Julio Cesar [facility] TROPONIN I 2020-01-16 20:04:00 Julio Cesar [facility] ACTIVATED PARTIAL 2020-01-16 20:04:[address] [facility] POCT GLUCOSE (AUTOMATED) 2020-01-16 17:05:00 Julio Cesar [facility] POCT GLUCOSE (AUTOMATED) 2020-01-16 13:38:00 Edionwe, [facility] TROPONIN I 2020-01-16 11:11:00 Ramónconsuelo [facility] LIPID PANEL ([id number])(TOTAL 2020-01-16 11:11:00 Sarah Adorno [facility] TRIGLY[facility], HDL) ACTIVATED PARTIAL 2020-01-16 11:11:00 Julio Cesar [facility] CRITICAL CARE 2020-01-16 05:48:18 Charanjit Heck [facility] XR CHEST 1 VW 2020-01-16 04:46:44 Charanjit Heck [facility] TROPONIN I 2020-01-16 04:38:00 Charanjit Heck [facility] HEPATIC FUNCTION PANEL 2020-01-16 04:38:00 Charanjit Heck [facility] ([id number]) (ALB,T.PRO,BILI Medical Branch T,BU/BC,ALT,AST,ALK PHOS) BASIC METABOLIC PANEL 2020-01-16 04:38:00 Charanjit Heck [facility] (NA, K, CL, CO2, GLUCOSE, Medica l Branch BUN, CREATININE, CA) CBC WITH DIFFERENTIAL 2020-01-16 04:38:00 Umang Charanjit [facility] GLYCOSYLATED HEMOGLOBIN 2020-01-16 04:38:00 [facility] PROTHROMBIN TIME / INR 2020-01-16 04:38:00 Charanjit Heck [facility] ACTIVATED PARTIAL 2020-01-16 04:38:[address] [facility] N-TERMINAL PRO-BNP 2020-01-16 04:38:00 Charanjit Heck [facility] EKG-12 LEAD 2020-01-16 04:37:48 Charanjit Heck [facility] EKG-12 LEAD 2020-01-16 04:35:35 Charanjit Heck [facility] AUTHORIZATION FOR RELEASE 2019-07-12 05:01:00 Doctor Unassigned, [facility] Encounters Start End Encounter Admission Attending Care Care Encounter Source Date/Time Date/Time Type Type Clinicians Facility Department ID 2022-03-06 Outpatient [facility] [id number] [place] 08:51:10 [id number] [facility] 2021-12-16 Inpatient SERA Villavicencio [facility] [id number] [facility] 11:30:00 [facility] 2021-12-16 [facility] [id number] Common 09:19:01 [facility] 2021-12-11 Outpatient Lester, [facility] [id number] Common 14:38:21 Anneliese [facility] 2021-12-11 [facility] [id number] Common 11:50:18 Anneliese [facility] 2021-09-16 Emergency [facility] [id number] Univers 00:23[facility] 2021-09-13 Emergency [facility] [id number] Univers 11:42:35 [facility] 2021-09-13 Emergency [facility] [id number] Univers 05:40:48 [facility] 2022-04-16 2022-04-16 [facility] [id number] Univers 22:29:00 23:27:00 LUZ [facility] 2022-04-16 2022-04-16 [facility] [id number] Univers 22:29:00 23:27:00 Luz RAMSEY 350.1.13.10 i [facility] 4.2.7.2.686 [facility] [id number] [place] [address] Branch 2022-03-05 2022-03-10 Inpatient U BLADE, [facility] CAR [id number] [facility] 06:12:00 22:30:00 BRODIE 2022-03-01 2022-03-01 Emergency X LAUREN SDCESAR ERT [id number] Univers 06:52:00 12:04:00 ANGELIKA leon [facility] 2022-03-01 2022-03-01 Emergency aLuren [facility] 1.2.840.114 [id number] Univers 06:52:00 12:04:00 Angelika RAMSEY 350.1.13.10 ity [facility] [place] [id number] [facility] 084 Branch 2021-12-25 2021-12-25 Inpatient ATTAR, [facility] [id number] [place] 00:00:00 00:00:00 [address] 2021-12-19 2021-12-25 Inpatient LAUREN, [facility] [id number] [place] 00:00:00 00:00:00 JAYSON [address] 2021-12-24 2021-12-24 ambulatory STLMLC STLMLC [id number] Common 00:00:00 00:00:00 [facility] 2021-12-20 2021-12-20 Inpatient ATTAR, [facility] [id number] [place] 00:00:00 00:00:00 [address] 2021-12-17 2021-12-17 ambulatory STLMLC STLMLC [id number] Common 00:00:00 00:00:00 [facility] 2021-12-16 2021-12-16 ambulatory STLMLC STLMLC [id number] Common 00:00:00 00:00:00 [facility] 2021-11-19 2021-11-19 Orders Doctor ROBERT 1.2.840.114 [id number] Univers 00:00:00 00:00:00 Only Unassigned, ASHLEIGH 350.1.13.10 ity of [place] [facility] 4.2.7.2.686 [place] [phone] [facility] 009 Branch 2021-11-04 2021-11-04 Transition CandaceSHAREE chang 1.2.840.114 [id number] Univers 00:00:00 00:00:00 of Care Supa GREWAL 350.1.13.10 ity of [place] [id number] [facility] 403 Branch 2021-10-30 2021-11-02 Inpatient X ALYSSA [facility] [id number] Univers 19:14:00 18:15:00 AIDA ity of [facility] 2021-10-30 2021-11-02 [facility] Martha Drake [facility] 1.2.840. 114 [id number] Univers 19:14:00 18:15:00 Encounter Alyssa Aidagardenia RAMSEY 350.1.13.10 ity of [facility] 4.2.7.2.686 [facility] [id number] [facility] 081 Branch 2021-05-17 2021-05-17 Letter PcpROBERT 1.2.840.114 [id number] Univers 00:00:00 00:00:00 (Out) Patient ASHLEIGH 350.1.13.10 it y of Does [facility] [place].2.[place] [id number] [facility] 019 Branch 2021-04-25 2021-04-25 Emergency Cece, TRAUMA [id number] Univers 10:43:00 17:38:00 [facility] 350.1.13.10 i ty of [facility] 4.2.7.[address] [place] [address] [phone] [facility] 014 Branch 2020-06-26 2020-06-26 Emergency [facility] 1.2.576.401 [id number] 03:50:00 06:45:00 Martha Ramsey 350.1.13.10 [place] 4.2.7.2.686 [place] [id number] [facility] 2020-06-26 2020-06-26 [facility] [id number] [id number] Univers 03:50:00 06:45:00 Martha Ramsey 350.1.13.10 ity of [place] 4.2.7.2.686 [facility] [id number] [facility] 084 Branch 2020-05-24 2020-05-24 Emergency [facility] 1.2.704.011 [id number] 06:40:47 10:54:00 Charanjit Ramsey 350.1.13.10 [place] 4.2.7.2.686 [place] [id number] 08 2020-05-24 2020-05-24 Emergency [facility] 1.2.650.258 [id number] Univers 06:40:47 10:54:00 Charanjit Ramsey 350.1.13.10 i ty of [place] [phone] [address] 2020-03-29 2020-03-29 Jamel Dunn 1.2.840.114 [id number] 00:00:00 00:00:00 (Out) T Ashleigh 350.1.13.10 [facility] 4.2.7.2.686 [id number] [facility] 2020-03-29 2020-03-29 Jamel Dunn 1.2.840.114 [id number] Univers 00:00:00 00:00:00 (Out) T Ashleigh 350.1.13.10 it y of [facility] 4.2.7.2.686 [place] [phone] [address] 2020-03-26 2020-03-26 Transition Sharee George 1.2.840.114 [id number] 00:00:00 00:00:00 of Care Sherrell Grewal 350.1.13.10 [place] 4.2.7.2.686 [id number] [facility] 2020-03-26 2020-03-26 Transition Sharee George 1.2.840.114 [id number] Univers 00:00:00 00:00:00 of Care Sherrell Grewal 350.1.13.10 it y of [place] [id number] [address] 2020-03-22 2020-03-23 Emergency Sallie Eckert 1.2.840. 114 [id number] [facility] 18:02:47 21:55:00 Jamel Flores 350.1.13.10 ity [facility] 4.2.7.2.686 [place] [phone] [address] 2020-03-22 2020-03-23 Outpatient X JAMEL FLORES [facility] [id number] [facility] 18:02:47 21:55:00 ity of [facility] 2020-03-21 2020-03-21 Emergency Kamryn SDCESAR 1.2.840.114 [id number] Univers 15:02:08 17:16:00 Mylesazra Ramsey 350.1.13.10 i ty of [place] [phone] [place] [address] [place] 2020-03-21 2020-03-21 Emergency X KAMRYN [facility] ERT [id number] Univers 15:02:08 17:16:00 MYLES ity of [facility] 2020-03-13 2020-03-13 Outpatient Raju_P [facility] [id number] [place] 05:24:00 05:24:00 [facility] 2020-03-08 2020-03-08 Transition Sharee Cool 1.2.840.114 [id number] Univers 00:00:00 00:00:00 of Care Prema Grewal 350.1.13.10 i ty of [place] [phone] [address] 2020-03-04 2020-03-07 [facility] Charanjit Heck [facility] 1.2.840.1 14 [id number] Univers 18:01:05 18:00:00 Encounter Julio Cesar Cherelleazra Ramsey 350.1.13.10 ity of [place] 4.2.7.2.686 [place] [facility] [id number] [address] 2020-03-04 2020-03-07 Inpatient X JULIO CESAR [facility] ZEFERINO [id number] Univers 18:01:05 18:00:00 CHERELLEAzra carolyn of [facility] 2020-03-03 2020-03-03 Transition Sharee Silva 1.2.840.114 [id number] Univers 00:00:00 00:00:00 of Care Isatu Twan 350.1.13.10 it y of [place] [phone] [address] 2020-02-29 2020-03-02 [facility] Bobo Urrutia [facility] 1.2.840.11 [id number] Univers 16:53:09 12:18:00 Encounter Lulu Harris 350.1.13.10 ity of [place].7.2.[place] [id number] [place] 85[address]71 [place] 2020-02-29 2020-03-02 Inpatient X STEVEN [facility] ZEFERINO [id number] Univers 16:53:09 12:18:00 LULU leon [facility] 2020-02-15 2020-02-15 Outpatient R CHAVA [facility] [id number] Univers 11:30:00 11:30:00 ROSEMARY leon [facility] 2020-02-15 2020-02-15 [facility] 1.2.840.114 [id number] Univers 08:13:42 08:43:42 ne Visit Rosemary Ramsey 350.1.13.10 ity of [place] 4.2.7.2.686 [facility] [phone] Ak dical nal [address] [facility] 2020-01-18 2020-01-18 Transition Sharee Harvey 1.2.840.114 [id number] Univers 00:00:00 00:00:00 of Care Ana M Grewal 350.1.13.10 it y of [place] 4.2.7.2.686 [facility] [phone] [facility] 403 Branch 2020-01-15 2020-01-17 [facility] Charanjit Heck [facility] 1.2.840.1 14 [id number] Univers 22:33:37 16:58:00 Encounter Sarah Adorno 350.1.13.10 ity of [place] 4.2.7.2.686 [facility] [place] [id number] [place] [address] [place] 2020-01-15 2020-01-17 Outpatient X JULIO CESAR [facility] Z[place]ER[place] [id number] Univers 22:33:37 16:58:00 SARAH leon [facility] 2019-10-07 2019-10-07 [facility] [id number] Common 10:48:00 10:48:00 [facility] it [facility] 2019-10-05 2019-10-05 [facility] [id number] Common 16:06:00 16:06:00 [facility] it [address] [facility] 2019-07-27 2019-07-27 [facility] 1.2.840.114 [id number] Univers 00:00:00 00:00:00 Rosemary Ramsey 350.1.13.10 i ty of [place] 4.2.7.2.686 [place] [phone] Ak dical nal 220 [facility] 2019-07-12 2019-07-12 [facility] [id number] Common 16:24:00 16:24:00 [facility] it [facility] 2019-07-12 2019-07-12 Orders Doctor ROBERT 1.2.840.114 [id number] Univers 00:00:00 00:00:00 Only Unassigned, ASHLEIGH 350.1.13.10 ity of [place] [facility] 4.2.7.2.686 [place] [phone] [address] 2019-07-06 2019-07-06 Out[facility] [id number] Common 14:00:00 14:00:00 [facility] it [facility] Results Test Description Test Time Test Comments Results Result Comments Source SARS-CoV-2 (COVID-19) RNA [Presence] in Respiratory sp ecimen by 2021-12-20 07:04:48 ERI with probe detection Test Item Value Reference Range Interpretation Comme nts SARS-CoV-2 (COVID-19) RNA [Presence] in Respiratory Not detected No t-Detected specimen by ERI with probe detection (test code = 33598-1) 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 (test code = 79546-4) Whether the patient has symptoms related to condition of interest (test code = 88771-7) Patient was hospitalized because of this condition (test code = 50393-0) Whether the patient was admitted to intensive care unit (ICU) for condition of interest (test code = 37852-6) Whether patient resides in a congregate care setting (test code = 45119-5) POCT GLUCOSE (AUTOMATED)2021-11-02 22:57:12 Test Item Value Reference Range Interpretation Comments POCT GLU (test code = 0260769522) 224 mg/dL 70-110 H Lab Interpretation (test code = Abnormal 69534-7) [facility]-12 LEAD ROUTINE [id number] 22:37:57 Test Item Value Reference Range Interpretation Comments Lab Interpretation (test code = Abnormal 46574-1) [facility] GLUCOSE (AUTOMATED)2021-11-02 17:43:02 Test Item Value Reference Range Interpretation Comments POCT GLU (test code = 0207435027) 264 mg/dL 70-110 H Lab Interpretation (test code = Abnormal 20161-8) [facility] [id number] 15:07:47 Test Item Value Reference Interpretation Comments Range TROPONIN I (test 0.064 ng/mL See_Comment H [Automated code = 3236313891) message] The system which generated this result [...] biotin. Lab Interpretation Abnormal (test code = 47389-7) [facility] [id number] 15:04:26 Test Item Value Reference Range Interpretation Comments NT-proBNP (test code 800 pg/mL See_Comment H [Autom ated = 8021044757) message] The system which generated this result transmitted reference range : <=450. The reference range was not used to interpret this result as normal/abnormal . ALYSSA (test code = ALYSSA) Biotin has been reported to cause a negative bias, interpret results relative to patient's use of biotin. Lab Interpretation Abnormal (test code = 70021-3) [facility] GLUCOSE (AUTOMATED)2021-11-02 13:36:38 Test Item Value Reference Range Interpretation Comments POCT GLU (test code = 4619761520) 185 mg/dL 70-110 H Lab Interpretation (test code = Abnormal 95164-9) [facility] METABOLIC PANEL (NA, K, CL, CO2, GLUCOSE, BUN, CREATININE, CA)2021-11-02 10:26:43 Test Item Value Reference Range Interpretation Comments NA (test code = 136 mmol/L 135-145 3761917140) K (test code = 4.0 mmol/L 3.5-5.0 7089969422) CL (test code = 99 mmol/L 98-108 6903452424) CO2 TOTAL (test code = 27 mmol/L 23-31 8016036441) AGAP (test code = 2-16 4214558074) BUN (test code = 30 mg/dL 7-23 H 8940061482) GLUCOSE (test code = 165 mg/dL 70-110 H 2992779286) CREATININE (test code = 1.42 mg/dL 0.60-1.25 H 8429344760) CALCIUM (test code = 9.5 mg/dL 8.6-10.6 0905840822) eGFR (test code = mL/min/1.73m2 0802932931) ALYSSA (test code = ALYSSA) Association of [...] tests). Lab Interpretation Abnormal (test code = 67568-4) [facility] WITH [id number] 10:01:58 Test Item Value Reference Range Interpretation [...] RDW-SD (test code = 39.8 fL 38.5-51.6 02188-6) RDW-CV (test code = 11.5 % 12.1-15.4 L 788-0) PLT (test code = See_Comment [Automated 777-3) message] The sy stem which generated this result transmitted reference range : 150 - 328 10*3/ ?L. The reference r corey was not used to interpret this result as normal/abnormal . MPV (test code = 10.5 fL 9.8-13.0 59490-5) NRBC/100 WBC (test See_Comment [Automat ed code = 3492249143) message] The system which generated this result transmitted reference range : 0.0 - 10.0 /100 WBCs. The refer ence range was not u sed to interpret th is result as normal/abnormal . NRBC x10^3 (test code <0.01 See_Comment [Auto mated = 4403319452) message] The s ystem which generated this result transmitted reference range : 10*3/?L. The reference range was not used to interpret this result as normal/abnormal . GRAN MAT (NEUT) % 59.3 % (test code = 770-8) IMM GRAN % (test code 0.30 % = 8619115009) LYMPH % (test code = 25.0 % 736-9) MONO % (test code = 10.7 % 5905-5) EOS % (test code = 4.1 % 713-8) BASO % (test code = 0.6 % 706-2) GRAN MAT x10^3(ANC) 4.19 10*3/uL 1.99-6.95 (test code = 1895148137) IMM GRAN x10^3 (test <0.03 0.00-0.06 code = 8159038673) LYMPH x10^3 (test code 1.77 10*3/uL 1.09-3.23 = 731-0) MONO x10^3 (test code 0.76 10*3/uL 0.36-1.02 = 742-7) EOS x10^3 (test code = 0.29 10*3/uL 0.06-0.53 711-2) BASO x10^3 (test code 0.04 10*3/uL 0.01-0.09 = 704-7) Lab Interpretation Abnormal (test code = 21930-8) [facility] GLUCOSE (AUTOMATED)2021-11-02 01:29:56 Test Item Value Reference Range Interpretation Comments POCT GLU (test code = 5118003435) 167 mg/dL 70-110 H Lab Interpretation (test code = Abnormal 66330-0) [facility] GLUCOSE (AUTOMATED)2021-11-01 17:40:19 Test Item Value Reference Range Interpretation Comments POCT GLU (test code = 0098894602) 193 mg/dL 70-110 H Lab Interpretation (test code = Abnormal 70927-0) [facility] GLUCOSE (AUTOMATED)2021-11-01 13:44:28 Test Item Value Reference Range Interpretation Comments POCT GLU (test code = 1567634755) 200 mg/dL 70-110 H Lab Interpretation (test code = Abnormal 25737-3) [facility] GLUCOSE (AUTOMATED)2021-11-01 01:38:43 Test Item Value Reference Range Interpretation Comments POCT GLU (test code = 2087042678) 177 mg/dL 70-110 H Lab Interpretation (test code = Abnormal 27733-3) [facility] GLUCOSE (AUTOMATED)2021-10-31 22:39:43 Test Item Value Reference Range Interpretation Comments POCT GLU (test code = 9482538262) 174 mg/dL 70-110 H Lab Interpretation (test code = Abnormal 31742-1) [facility] GLUCOSE (AUTOMATED)2021-10-31 17:40:22 Test Item Value Reference Range Interpretation Comments POCT GLU (test code = 2160680219) 224 mg/dL 70-110 H Lab Interpretation (test code = Abnormal 63263-3) [facility] [id number] 17:14:58 Test Item Value Reference Interpretation Comments Range TROPONIN I (test 0.080 ng/mL See_Comment H [Automated code = 3072730819) message] The system which generated this result [...] biotin. Lab Interpretation Abnormal (test code = 03091-7) [facility] [id number] 15:14:03 Test Item Value Reference Range Interpretation Comments NT-proBNP (test code 474 pg/mL See_Comment H [Autom ated = 1042980782) message] The system which generated this result transmitted reference range : <=450. The reference range was not used to interpret this result as normal/abnormal . ALYSSA (test code = ALYSSA) Biotin has been reported to cause a negative bias, interpret results relative to patient's use of biotin. Lab Interpretation Abnormal (test code = 52370-5) [facility] (49712)(TOTAL CHOLESTEROL, TRIGLYCERIDES, HDL)2021-10-31 15:05:19 Test Item Value Reference Range Interpretation Comments CHOL (test code = 101 mg/dL 120-200 L 8704096282) HDL (test code = 36 mg/dL >40 L 2234127867) HDLC RATIO (test code = See_Comment [Au tomated message] 5077391864) The system Berry White generated this result transmit diamante reference range : <=5.0. The refe rence range was not u sed to interpret th is result as normal/abnormal . TRIG (test code = 143 mg/dL 30-170 6614661140) LDL CHOL (test code = 36 mg/dL See_Comment [Auto mated message] 10273-1) The system Berry White generated this result transmit diamante reference range : <=160. The refe rence range was not u sed to interpret th is result as normal/abnormal . VLDL (test code = 29 mg/dL 5-60 5380695228) Lab Interpretation (test Abnormal code = 25104-7) [facility]2021-10-31 13:44:00 Test Item Value Reference Range Interpretation Comments POCT GLU (test code = 1288324034) 150 mg/dL 70-110 H Lab Interpretation (test code = Abnormal 22313-6) [facility] [id number] 11:13:14 Test Item Value Reference Range Interpretation [...] RDW-SD (test code = 39.9 fL 38.5-51.6 78935-1) RDW-CV (test code = 11.8 % 12.1-15.4 L 788-0) PLT (test code = See_Comment [Automated 777-3) message] The sy stem which generated this result transmitted reference range : 150 - 328 10*3/ ?L. The reference r corey was not used to interpret this result as normal/abnormal . MPV (test code = 11.0 fL 9.8-13.0 14466-3) NRBC/100 WBC (test See_Comment [Automat ed code = 7376484192) message] The system which generated this result transmitted reference range : 0.0 - 10.0 /100 WBCs. The refer ence range was not u sed to interpret th is result as normal/abnormal . NRBC x10^3 (test code <0.01 See_Comment [Auto mated = 4706812830) message] The s ystem which generated this result transmitted reference range : 10*3/?L. The reference range was not used to interpret this result as normal/abnormal . GRAN MAT (NEUT) % 64.3 % (test code = 770-8) IMM GRAN % (test code 0.30 % = 2516362750) LYMPH % (test code = 21.7 % 736-9) MONO % (test code = 10.0 % 5905-5) EOS % (test code = 3.1 % 713-8) BASO % (test code = 0.6 % 706-2) GRAN MAT x10^3(ANC) 4.35 10*3/uL 1.99-6.95 (test code = 7851325651) IMM GRAN x10^3 (test <0.03 0.00-0.06 code = 9713644889) LYMPH x10^3 (test code 1.47 10*3/uL 1.09-3.23 = 731-0) MONO x10^3 (test code 0.68 10*3/uL 0.36-1.02 = 742-7) EOS x10^3 (test code = 0.21 10*3/uL 0.06-0.53 711-2) BASO x10^3 (test code 0.04 10*3/uL 0.01-0.09 = 704-7) Lab Interpretation Abnormal (test code = 38187-4) [facility] [id number] 11:09:53 Test Item Value Reference Interpretation Comments Range TROPONIN I (test 0.101 ng/mL See_Comment H [Automated code = 2349709392) message] The system which generated this result [...] biotin. Lab Interpretation Abnormal (test code = 89045-9) [facility] (NA, K, CL, CO2, GLUCOSE, BUN, CREATININE, CA)2021-10-31 10:59:31 Test Item Value Reference Range Interpretation Comments NA (test code = 139 mmol/L 135-145 4387191612) K (test code = 4.1 mmol/L 3.5-5.0 9921902699) CL (test code = 103 mmol/L 98-108 0614968209) CO2 TOTAL (test code = 28 mmol/L 23-31 4018399968) AGAP (test code = 2-16 1665435378) BUN (test code = 43 mg/dL 7-23 H 1787499267) GLUCOSE (test code = 165 mg/dL 70-110 H 4180770369) CREATININE (test code = 1.68 mg/dL 0.60-1.25 H 1574296289) CALCIUM (test code = 9.6 mg/dL 8.6-10.6 2306699751) eGFR (test code = mL/min/1.73m2 7365803583) ALYSSA (test code = ALYSSA) Association of [...] tests). Lab Interpretation Abnormal (test code = 02766-6) [facility] Hem[facility] (A1C)2021-10-31 09:13:40 Test Item Value Reference Range Interpretation Comments HGB A1C (test code = 6.8 % 4.0-5.7 H 4548-4) ALYSSA (test code = ALYSSA) Reference RangesNormal: <5.7%Prediabetes: 5.7 - 6.4%Diabetes: > 6.5% Lab Interpretation (test Abnormal code = 70107-2) [facility] [id number] 06:48:18 Test Item Value Reference Interpretation Comments Range TROPONIN I (test 0.082 ng/mL See_Comment H [Automated code = 9340337933) message] The system which generated this result [...] biotin. Lab Interpretation Abnormal (test code = 58645-0) [facility] [id number] 02:09:48 Test Item Value Reference Interpretation Comments Range TROPONIN I (test 0.067 ng/mL See_Comment H [Automated code = 2836813030) message] The system which generated this result [...] biotin. Lab Interpretation Abnormal (test code = 81812-3) [facility] [id number] 02:06:31 Test Item Value Reference Range Interpretation Comments NT-proBNP (test code 318 pg/mL See_Comment [Autom ated = 2277015121) message] The system which generated this result transmitted reference range : <=450. The reference range was not used to interpret this result as normal/abnormal . ALYSSA (test code = ALYSSA) Biotin has been reported to cause a negative bias, interpret results relative to patient's use of biotin. Lab Interpretation Normal (test code = 39842-3) [facility]OLIC [facility] (32769)2021-10-31 01:58:28 Test Item Value Reference Range Interpretation Comments NA (test code = 137 mmol/L 135-145 0477952098) K (test code = 4.1 mmol/L 3.5-5.0 7961159377) CL (test code = 101 mmol/L 98-108 0657973434) CO2 TOTAL (test code = 26 mmol/L 23-31 1755375429) AGAP (test code = 2-16 0963229993) BUN (test code = 46 mg/dL 7-23 H 2774063496) GLUCOSE (test code = 213 mg/dL 70-110 H 2626402553) CREATININE (test code = 1.96 mg/dL 0.60-1.25 H 0861152547) TOTAL BILI (test code = 0.9 mg/dL 0.1-1.2 4555658557) CALCIUM (test code = 9.7 mg/dL 8.6-10.6 6890607939) T PROTEIN (test code = 7.0 g/dL 6.3-8.2 0995556828) ALBUMIN (test code = 4.3 g/dL 3.5-5.0 2636298534) ALK PHOS (test code = 58 U/L 34-122 9906565426) ALTv (test code = 20 U/L 5-50 1742-6) AST(SGOT) (test code = 27 U/L 13-40 0127255287) eGFR (test code = mL/min/1.73m2 4603889155) ALYSSA (test code = ALYSSA) Association of [...] tests). Lab Interpretation Abnormal (test code = 25604-2) [facility]IP[facility] [id number] 01:57:48 Test Item Value Reference Range Interpretation Comments LIPASE (test code = 6206963409) 330 U/L 0-220 H Lab Interpretation (test code = Abnormal 23430-5) [facility]aPTT2021-[facility]-16 01:55:04 Test Item Value Reference Range Interpretation Comments APTT Patient (test See_Comment [Automat ed code = 3173-2) message] The system which generated this result transmitted reference range : 23 - 38 Seconds . The reference range was not used to interpr et this result as normal/abnormal . ALYSSA (test code = ALYSSA) The [facility] patient population mean normal value for aPTT is 30 seconds. Lab Interpretation Normal (test code = 22916-7) [facility] / [id number] 01:53:08 Test Item Value Reference Range Interpretation [...] tions. Lab Interpretation (test Normal code = 86380-0) [facility] WITH [id number] 01:45:44 Test Item Value Reference Range Interpretation [...] RDW-SD (test code = 39.1 fL 38.5-51.6 01576-6) RDW-CV (test code = 11.6 % 12.1-15.4 L 788-0) PLT (test code = See_Comment [Automated 777-3) message] The sy stem which generated this result transmitted reference range : 150 - 328 10*3/ ?L. The reference r corey was not used to interpret this result as normal/abnormal . MPV (test code = 10.4 fL 9.8-13.0 55558-8) NRBC/100 WBC (test See_Comment [Automat ed code = 5446748669) message] The system which generated this result transmitted reference range : 0.0 - 10.0 /100 WBCs. The refer ence range was not u sed to interpret th is result as normal/abnormal . NRBC x10^3 (test code <0.01 See_Comment [Auto mated = 8723918230) message] The s ystem which generated this result transmitted reference range : 10*3/?L. The reference range was not used to interpret this result as normal/abnormal . GRAN MAT (NEUT) % 62.1 % (test code = 770-8) IMM GRAN % (test code 0.30 % = 4686206490) LYMPH % (test code = 23.4 % 736-9) MONO % (test code = 10.8 % 5905-5) EOS % (test code = 2.9 % 713-8) BASO % (test code = 0.5 % 706-2) GRAN MAT x10^3(ANC) 4.14 10*3/uL 1.99-6.95 (test code = 7112007896) IMM GRAN x10^3 (test <0.03 0.00-0.06 code = 8857341280) LYMPH x10^3 (test code 1.56 10*3/uL 1.09-3.23 = 731-0) MONO x10^3 (test code 0.72 10*3/uL 0.36-1.02 = 742-7) EOS x10^3 (test code = 0.19 10*3/uL 0.06-0.53 711-2) BASO x10^3 (test code 0.03 10*3/uL 0.01-0.09 = 704-7) Lab Interpretation Abnormal (test code = 57717-8) [facility] 21:15:48 Test Item Value Reference Range Interpretation Comments APPEARANCE (test code = Clear Clear 7805982281) COLOR (test code = Yellow Yellow 8053328623) PH (test code = 4.8-8.0 8676484886) SP GRAVITY (test code = 1.003-1.030 0093427799) GLU U QUAL (test code = 50 mg/dL Normal A 4683627806) BLOOD (test code = Negative Negative INTERFERE NCE FROM 9649630336) ASCORBIC ACID M AY CAUSE FALSE NEG ATIVE RESULT KETONES (test code = Negative Negative 8788082838) PROTEIN (test code = Negative Negative 2887-8) UROBILIN (test code = Normal Normal 5281172519) BILIRUBIN (test code = Negative Negative 1959128957) NITRITE (test code = Negative Negative 2157316864) LEUK JESS (test code = Negative Negative 4979496129) RBC/HPF (test code = See_Comment [Autom ated message] 7841092715) The system [employer] generated this result transmitted ref erence range: 0 - 3 HP F. The reference range was not used to int erpret this result as normal/abnormal . WBC/HPF (test code = See_Comment [Autom ated message] 0651261552) The system [employer] generated this result transmitted ref erence range: 0 - 5 HP F. The reference range was not used to int erpret this result as normal/abnormal . BACTERIA (test code = Negative Negative 6162518562) SQ EPITH (test code = <1 See_Comment [Auto mated message] 0470931440) The system [employer] generated this result transmitted ref erence range: <=2 HPF. The reference range was not used to int erpret this result as normal/abnormal . HYAL CAST (test code = See_Comment [Aut omated message] 6345581585) The system [employer] generated this result transmitted ref erence range: <=2 LPF. The reference range was not used to int erpret this result as normal/abnormal . Lab Interpretation (test Abnormal code = 12170-3) [facility] LUMBAR SPINE 2 [id number] 20:30:53 Impression: Postoperative changes. Degenerative changes. No [...] acute bony abnormality identified.End of Report.RL: 3901 [facility] HIPS 2 VW [id number] 20:24:52Impression: Postoperative changes. Degenerative changes. No acute [...] clinicalconcern MRI is available.End of Report.RL: [facility] (NA, K, CL, CO2, GLUCOSE, BUN, CREATININE, CA)2020-05-24 14:15:00 Test Item Value Reference Range Interpretation Comments NA (test code = 139 mmol/L 135-145 3450419878) K (test code = 4.1 mmol/L 3.5-5 9026344293) CL (test code = 104 mmol/L 98-108 5267837779) CO2 TOTAL (test code = 26 mmol/L 23-31 8116567816) AGAP (test code = 2-16 7058711232) BUN (test code = 22 mg/dL 7-23 8300600015) GLUCOSE (test code = 203 mg/dL 70-110 H 8559621110) CREATININE (test code = 1.40 mg/dL 0.6-1.25 H 1336585819) CALCIUM (test code = 9.1 mg/dL 8.6-10.6 6079168389) eGFR Calculation mL/min/1.73m2 (Non-) (test code = 2200744586) eGFR Calculation mL/min/1.73m2 () (test code = 2142999619) ALYSSA (test code = ALYSSA) Association of [...] tests). Lab Interpretation Abnormal (test code = 24703-6) [facility] (ALB, T.PRO, BILI T, BU/BC, ALT, AST, ALK PHOS)2020-05-24 13:54:00 Test Item Value Reference Range Interpretation Comments TOTAL BILI (test code = 3868888376) 0.9 mg/dL 0.1-1.1 BILI UNCON (test code = 6149210660) 1.0 mg/dL 0.1-1.1 BILI CONJ (test code = 0319060904) 0.0 mg/dL 0-0.3 T PROTEIN (test code = 3131122018) 7.0 g/dL 6.3-8.2 ALBUMIN (test code = 3752370043) 4.2 g/dL 3.5-5 ALK PHOS (test code = 8943690421) 49 U/L 34-122 ALTv (test code = 1742-6) 17 U/L 5-50 AST(SGOT) (test code = 5284235605) 25 U/L 13-40 Lab Interpretation (test code = Normal 54513-6) [facility]2020-07[facility] 13:32:00 Test Item Value Reference Range Interpretation Comments APTT Patient (test See_Comment [Automat ed code = 3173-2) message] The system which generated this result transmitted reference range : 23 - 38 Seconds . The reference range was not used to interpr et this result as normal/abnormal . ALYSSA (test code = ALYSSA) The [facility] patient population mean normal value for aPTT is 30 seconds. Lab Interpretation Normal (test code = 55486-0) [facility]Proth[facility] (PT) / [id number] 13:30:00 Test Item Value Reference Range Interpretation [...] tions. Lab Interpretation (test Normal code = 64923-6) [facility]CB WITH [id number] 13:27:00 Test Item Value Reference Range Interpretation Comments WBC (test code = See_Comment [Automated 8890-2) message] The sy stem which generated this result transmitted reference range : 4.20 - 10.70 10*3/?L. The reference range was not used to interpret this result as normal/abnormal . RBC (test code = See_Comment L [Automated 389-8) message] The sy stem which generated this [...] RDW-SD (test code = 42.6 fL 38.5-51.6 14127-7) RDW-CV (test code = 12.3 % 12.1-15.4 788-0) PLT (test code = See_Comment [Automated 777-3) message] The sy stem which generated this result transmitted reference range : 150 - 328 10*3/ ?L. The reference r corey was not used to interpret this result as normal/abnormal . MPV (test code = 9.9 fL 9.8-13 61986-5) NRBC/100 WBC (test See_Comment [Automat ed code = 8237323923) message] The system which generated this result transmitted reference range : 0.0 - 10.0 /100 WBCs. The refer ence range was not u sed to interpret th is result as normal/abnormal . NRBC x10^3 (test code <0.01 See_Comment [Auto mated = 5009618516) message] The s ystem which generated this result transmitted reference range : 10*3/?L. The reference range was not used to interpret this result as normal/abnormal . GRAN MAT (NEUT) % 55.1 % (test code = 770-8) IMM GRAN % (test code 0.20 % = 9959461807) LYMPH % (test code = 28.8 % 736-9) MONO % (test code = 11.3 % 5905-5) EOS % (test code = 3.5 % 713-8) BASO % (test code = 1.1 % 706-2) GRAN MAT x10^3(ANC) 3.11 10*3/uL 1.99-6.95 (test code = 5905945775) IMM GRAN x10^3 (test <0.03 0-0.06 code = 4085345694) LYMPH x10^3 (test code 1.63 10*3/uL 1.09-3.23 = 731-0) MONO x10^3 (test code 0.64 10*3/uL 0.36-1.02 = 742-7) EOS x10^3 (test code = 0.20 10*3/uL 0.06-0.53 711-2) BASO x10^3 (test code 0.06 10*3/uL 0.01-0.09 = 704-7) Lab Interpretation Abnormal (test code = 41643-8) [facility] VW [id number] 13:25:58HISTORY: ?Pain. FINDINGS: AP, lateral, oblique views [...] acute fracture or dislocation in left ankle.[facility] GLUCOSE (AUTOMATED)2020-03-23 22:34:00 Test Item Value Reference Range Interpretation Comments POCT GLU (test code = 0578602891) 173 mg/dL 70-110 H Lab Interpretation (test code = Abnormal 61146-4) [facility] GLUCOSE (AUTOMATED)2020-03-23 22:34:00 Test Item Value Reference Range Interpretation Comments POCT GLU (test code = 1714094861) 173 mg/dL 70-110 H Lab Interpretation (test code = Abnormal 20119-2) [facility] GLUCOSE (AUTOMATED)2020-03-23 18:12:00 Test Item Value Reference Range Interpretation Comments POCT GLU (test code = 165 mg/dL 70-110 H Notifi ed Provider [id number]) Lab Interpretation (test Abnormal code = 12522-3) [facility] GLUCOSE (AUTOMATED)2020-03-23 18:12:00 Test Item Value Reference Range Interpretation Comments POCT GLU (test code = 165 mg/dL 70-110 H Notifi ed Provider [id number]) Lab Interpretation (test Abnormal code = 21936-8) [facility] GLUCOSE (AUTOMATED)2020-03-23 15:04:00 Test Item Value Reference Range Interpretation Comments POCT GLU (test code = 114 mg/dL 70-110 H Notifi ed Provider 8476107704) Lab Interpretation (test Abnormal code = 33335-0) [facility] GLUCOSE (AUTOMATED)2020-03-23 15:04:00 Test Item Value Reference Range Interpretation Comments POCT GLU (test code = 114 mg/dL 70-110 H Notifi ed Provider 3976290395) Lab Interpretation (test Abnormal code = 45220-3) [facility]FERR[facility]IN [id number] 13:23:00 Test Item Value Reference Range Interpretation Comments FERRITIN (test code = 139.0 ng/mL 18-464 9340009235) ALYSSA (test code = ALYSSA) Biotin has been reported to cause a negative bias, interpret results relative to patient's use of biotin. Lab Interpretation (test Normal code = 79116-1) [facility]ERR[facility] [id number] 13:23:00 Test Item Value Reference Range Interpretation Comments FERRITIN (test code = 139.0 ng/mL 18-464 6976176428) ALYSSA (test code = ALYSSA) Biotin has been reported to cause a negative bias, interpret results relative to patient's use of biotin. Lab Interpretation (test Normal code = 11099-9) [facility] [id number] 12:53:00 Test Item Value Reference Range Interpretation Comments IRON (test code = 1520891673) 87 ug/dL 50-160 TIBC (test code = 4757547112) 385 ug/dL 250-410 % FE SAT (test code = 5326999533) 23 % 20-50 Lab Interpretation (test code = Normal 11369-2) [id number] 12:53:00 Test Item Value Reference Range Interpretation Comments IRON (test code = 6938990943) 87 ug/dL 50-160 TIBC (test code = 9931606177) 385 ug/dL 250-410 % FE SAT (test code = 3699345760) 23 % 20-50 Lab Interpretation (test code = Normal 19838-1) [facility]2020-[facility] 12:07:00 Test Item Value Reference Range Interpretation Comments APTT Patient (test code See_Comment [Au tomated message] = 3173-2) The system [employer] generated this result transmitted ref erence range: 26 - 36 Seconds. The reference range was not used to int erpret this result as normal/abnormal . Lab Interpretation (test Abnormal code = 19170-2) [facility]2020-[facility] 12:07:00 Test Item Value Reference Range Interpretation Comments APTT Patient (test code See_Comment [Au tomated message] = 3173-2) The system [employer] generated this result transmitted ref erence range: 26 - 36 Seconds. The reference range was not used to int erpret this result as normal/abnormal . Lab Interpretation (test Abnormal code = 48953-1) [facility] [id number] 11:57:00 Test Item Value Reference Range Interpretation Comments TROPONIN I (test 0.046 ng/mL See_Comment H [Automated code = 1182905795) message] The system which generated this result [...] ? Lab Interpretation Abnormal (test code = 80164-3) [facility] [id number] 11:57:00 Test Item Value Reference Range Interpretation Comments TROPONIN I (test 0.046 ng/mL See_Comment H [Automated code = 1550460811) message] The system which generated this result [...] ? Lab Interpretation Abnormal (test code = 00963-8) [facility] (NA, K, CL, CO2, GLUCOSE, BUN, CREATININE, CA)2020-03-23 11:52:00 Test Item Value Reference Range Interpretation Comments NA (test code = 137 mmol/L 135-145 3181501316) K (test code = 4.1 mmol/L 3.5-5 2124635034) CL (test code = 102 mmol/L 98-108 8896404471) CO2 TOTAL (test code = 26 mmol/L 23-31 1527135546) AGAP (test code = 2-16 1521281718) BUN (test code = 18 mg/dL 7-23 7222669104) GLUCOSE (test code = 119 mg/dL 70-110 H 5968730083) CREATININE (test code = 1.14 mg/dL 0.6-1.25 0418084167) CALCIUM (test code = 9.1 mg/dL 8.6-10.6 2829489154) eGFR Calculation mL/min/1.73m2 (Non-) (test code = 2503082127) eGFR Calculation mL/min/1.73m2 () (test code = 0247543979) ALYSSA (test code = ALYSSA) Association of [...] tests). Lab Interpretation Abnormal (test code = 40902-9) [facility]2020-05-08 11:52:00 Test Item Value Reference Range Interpretation Comments MAGNESIUM (test code = 1130255059) 2.2 mg/dL 1.7-2.4 Lab Interpretation (test code = Normal 79983-9) [facility]OLIC [facility] (NA, K, CL, CO2, GLUCOSE, BUN, CREATININE, CA)2020-03-23 11:52:00 Test Item Value Reference Range Interpretation Comments NA (test code = 137 mmol/L 135-145 1051725882) K (test code = 4.1 mmol/L 3.5-5 9463224509) CL (test code = 102 mmol/L 98-108 5073626220) CO2 TOTAL (test code = 26 mmol/L 23-31 7451235457) AGAP (test code = 2-16 0776163903) BUN (test code = 18 mg/dL 7-23 7855163575) GLUCOSE (test code = 119 mg/dL 70-110 H 6640571658) CREATININE (test code = 1.14 mg/dL 0.6-1.25 0444698757) CALCIUM (test code = 9.1 mg/dL 8.6-10.6 9637874165) eGFR Calculation mL/min/1.73m2 (Non-) (test code = 4904858794) eGFR Calculation mL/min/1.73m2 () (test code = 0685242301) ALYSSA (test code = ALYSSA) Association of [...] tests). Lab Interpretation Abnormal (test code = 94637-3) [facility]2020-05-08 11:52:00 Test Item Value Reference Range Interpretation Comments MAGNESIUM (test code = 1887547433) 2.2 mg/dL 1.7-2.4 Lab Interpretation (test code = Normal 20012-0) [facility]Proth[facility] (PT) / [id number] 11:36:00 Test Item Value Reference Range Interpretation Comments PROTIME PATIENT (test See_Comment [Auto mated message] code = 5964-2) The system [employer] generated this result transmitted ref erence range: 10.1 - 1 2.6 Seconds. The re ference range was not u sed to interpret this result as normal/abnor mal. INR (test code = 6301-6) Nor mal INR <1.1; Warfarin Therap eutic range 2.0 to 3. 0 or 2.5 to 3.5, dep ending upon the indica tions. Lab Interpretation (test Normal code = 24078-9) [facility]Pro[facility] (PT) / [id number] 11:36:00 Test Item Value Reference Range Interpretation Comments PROTIME PATIENT (test See_Comment [Auto mated message] code = 5964-2) The system [employer] generated this result transmitted ref erence range: 10.1 - 1 2.6 Seconds. The re ference range was not u sed to interpret this result as normal/abnor mal. INR (test code = 6301-6) Nor mal INR <1.1; Warfarin Therap eutic range 2.0 to 3. 0 or 2.5 to 3.5, dep ending upon the indica tions. Lab Interpretation (test Normal code = 42688-5) [facility] [id number] 06:38:00 Test Item Value Reference Range Interpretation Comments TROPONIN I (test 0.045 ng/mL See_Comment H [Automated code = 4308268484) message] The system which generated this result [...] ? Lab Interpretation Abnormal (test code = 48151-0) [facility]TRA[facility] [id number] 06:38:00 Test Item Value Reference Range Interpretation Comments TROPONIN I (test 0.045 ng/mL See_Comment H [Automated code = 6431874415) message] The system which generated this result [...] ? Lab Interpretation Abnormal (test code = 45207-8) [facility] METABOLIC PANEL (NA, K, CL, CO2, GLUCOSE, BUN, CREATININE, CA)2020-03-23 06:29:00 Test Item Value Reference Range Interpretation Comments NA (test code = 137 mmol/L 135-145 5429232894) K (test code = 3.6 mmol/L 3.5-5 4681030441) CL (test code = 101 mmol/L 98-108 0170515730) CO2 TOTAL (test code = 27 mmol/L 23-31 6329085589) AGAP (test code = 2-16 8116332784) BUN (test code = 19 mg/dL 7-23 5439588884) GLUCOSE (test code = 153 mg/dL 70-110 H 7314841370) CREATININE (test code = 1.22 mg/dL 0.6-1.25 8694865931) CALCIUM (test code = 8.9 mg/dL 8.6-10.6 3557610097) eGFR Calculation mL/min/1.73m2 (Non-) (test code = 0403766820) eGFR Calculation mL/min/1.73m2 () (test code = 9464327645) ALYSSA (test code = ALYSSA) Association of [...] tests). Lab Interpretation Abnormal (test code = 32538-0) [facility]2020-05-08 06:29:00 Test Item Value Reference Range Interpretation Comments MAGNESIUM (test code = 6006290327) 1.7 mg/dL 1.7-2.4 Lab Interpretation (test code = Normal 64018-7) [facility] SouthLIPID PANEL (58855)(TOTAL CHOLESTEROL, TRIGLYCERIDES, HDL)2020-03-23 06:29:00 Test Item Value Reference Range Interpretation Comments CHOL (test code = 106 mg/dL 120-200 L 9462024280) HDL (test code = 46 mg/dL >40 5186829204) HDLC RATIO (test code = See_Comment [Au tomated message] 1473090848) The system [employer] generated this result transmit diamante reference range : <=5.0. The refe rence range was not u sed to interpret th is result as normal/abnormal . TRIG (test code = 74 mg/dL 30-170 2553711813) LDL CHOL (test code = 45 mg/dL See_Comment [Auto mated message] 00436-0) The system [employer] generated this result transmit diamante reference range : <=160. The refe rence range was not u sed to interpret th is result as normal/abnormal . VLDL (test code = 15 mg/dL 5-60 3001706556) Lab Interpretation (test Abnormal code = 56718-9) [facility] (NA, K, CL, CO2, GLUCOSE, BUN, CREATININE, CA)2020-03-23 06:29:00 Test Item Value Reference Range Interpretation Comments NA (test code = 137 mmol/L 135-145 4959395530) K (test code = 3.6 mmol/L 3.5-5 3471528813) CL (test code = 101 mmol/L 98-108 4894544331) CO2 TOTAL (test code = 27 mmol/L 23-31 7399708887) AGAP (test code = 2-16 2373547704) BUN (test code = 19 mg/dL 7-23 1403832288) GLUCOSE (test code = 153 mg/dL 70-110 H 1261186400) CREATININE (test code = 1.22 mg/dL 0.6-1.25 4808788324) CALCIUM (test code = 8.9 mg/dL 8.6-10.6 9647189619) eGFR Calculation mL/min/1.73m2 (Non-) (test code = 0632143563) eGFR Calculation mL/min/1.73m2 () (test code = 6187772486) ALYSSA (test code = ALYSSA) Association of [...] tests). Lab Interpretation Abnormal (test code = 94003-1) [facility]2020-[facility]-08 06:29:00 Test Item Value Reference Range Interpretation Comments MAGNESIUM (test code = 0753462578) 1.7 mg/dL 1.7-2.4 Lab Interpretation (test code = Normal 93248-6) [facility] SouthLIPID PANEL (61074)(TOTAL CHOLESTEROL, TRIGLYCERIDES, HDL)2020-03-23 06:29:00 Test Item Value Reference Range Interpretation Comments CHOL (test code = 106 mg/dL 120-200 L 3425545722) HDL (test code = 46 mg/dL >40 8512005933) HDLC RATIO (test code = See_Comment [Au tomated message] 6215436035) The system [employer] generated this result transmit diamante reference range : <=5.0. The refe rence range was not u sed to interpret th is result as normal/abnormal . TRIG (test code = 74 mg/dL 30-170 8818854257) LDL CHOL (test code = 45 mg/dL See_Comment [Auto mated message] 96657-3) The system [employer] generated this result transmit diamante reference range : <=160. The refe rence range was not u sed to interpret th is result as normal/abnormal . VLDL (test code = 15 mg/dL 5-60 2011332413) Lab Interpretation (test Abnormal code = 36279-3) [place] [id number] 03:18:00 Test Item Value Reference Range Interpretation Comments APTT Patient (test code = See_Comment [ Automated message] 3173-2) The system [employer] generated this result transmitted ref erence range: 26 - 36 Seconds. The re ference range was not u sed to interpret this result as normal/abnor mal. Lab Interpretation (test Normal code = 37716-5) [place] [id number] 03:18:00 Test Item Value Reference Range Interpretation Comments APTT Patient (test code = See_Comment [ Automated message] 3173-2) The system [employer] generated this result transmitted ref erence range: 26 - 36 Seconds. The re ference range was not u sed to interpret this result as normal/abnor mal. Lab Interpretation (test Normal code = 48309-8) [facility] [id number] 03:07:00 Test Item Value Reference Range Interpretation Comments PROTIME PATIENT (test See_Comment [Auto mated message] code = 5964-2) The system [employer] generated this result transmitted ref erence range: 10.1 - 1 2.6 Seconds. The re ference range was not u sed to interpret this result as normal/abnor mal. INR (test code = 6301-6) Nor mal INR <1.1; Warfarin Therap eutic range 2.0 to 3. 0 or 2.5 to 3.5, dep ending upon the indica tions. Lab Interpretation (test Normal code = 76161-0) [facility] / [id number] 03:07:00 Test Item Value Reference Range Interpretation Comments PROTIME PATIENT (test See_Comment [Auto mated message] code = 5964-2) The system [employer] generated this result transmitted ref erence range: 10.1 - 1 2.6 Seconds. The re ference range was not u sed to interpret this result as normal/abnor mal. INR (test code = 6301-6) Nor mal INR <1.1; Warfarin Therap eutic range 2.0 to 3. 0 or 2.5 to 3.5, dep ending upon the indica tions. Lab Interpretation (test Normal code = 24237-3) [facility] [id number] 02:23:32 No acute cardiopulmonary process. Preliminary Report [...] reviewed this study and agree with the abovereport.[facility] 2 [id number] 02:23:32 No acute cardiopulmonary process. Preliminary Report [...] reviewed this study and agree with the abovereport.[facility] COVID-19 [id number] 01:23:00 Test Item Value Reference Range Interpretation Comments SARS-CoV-2 (test code = Not Detected Not Detected 19064-8) ALYSSA (test code = ALYSSA) ID NOW COVID-19 Assay is an isothermal nucleic acid amplification test intended for the qualitative detection of nucleic acid from SARS-CoV-2 viral RNA in nasopharyngeal (DIRECTOR OF SOCIAL MEDIA MARKETING) specimens. It is used under Emergency Use [...] indicated. Lab Interpretation Normal (test code = 05245-1) [facility] [id number] 01:23:00 Test Item Value Reference Range Interpretation Comments SARS-CoV-2 (test code = Not Detected Not Detected 35126-9) ALYSSA (test code = ALYSSA) ID NOW COVID-19 Assay is an isothermal nucleic acid amplification test intended for the qualitative detection of nucleic acid from SARS-CoV-2 viral RNA in nasopharyngeal (DIRECTOR OF SOCIAL MEDIA MARKETING) specimens. It is used under Emergency Use [...] indicated. Lab Interpretation Normal (test code = 44182-5) [facility] [id number] 00:12:00 Test Item Value Reference Range Interpretation Comments NT-proBNP (test code 585 pg/mL See_Comment H [Autom ated = 5698887398) message] The system which generated this result transmitted reference range : <=450. The reference range was not used to interpret this result as normal/abnormal . ALYSSA (test code = ALYSSA) Biotin has been reported to cause a negative bias, interpret results relative to patient's use of biotin. Lab Interpretation Abnormal (test code = 87079-9) [facility] [id number] 00:12:00 Test Item Value Reference Range Interpretation Comments TROPONIN I (test 0.030 ng/mL See_Comment [Automated code = 7239712921) message] The system which generated this result [...] ? Lab Interpretation Normal (test code = 01204-6) [facility] [id number] 00:12:00 Test Item Value Reference Range Interpretation Comments NT-proBNP (test code 585 pg/mL See_Comment H [Autom ated = 6311421833) message] The system which generated this result transmitted reference range : <=450. The reference range was not used to interpret this result as normal/abnormal . ALYSSA (test code = ALYSSA) Biotin has been reported to cause a negative bias, interpret results relative to patient's use of biotin. Lab Interpretation Abnormal (test code = 90495-3) [facility] [id number] 00:12:00 Test Item Value Reference Range Interpretation Comments TROPONIN I (test 0.030 ng/mL See_Comment [Automated code = 2330033380) message] The system which generated this result [...] ? Lab Interpretation Normal (test code = 40802-7) [facility]. METABOLIC PANEL (41995)2020-03-23 00:03:00 Test Item Value Reference Range Interpretation Comments NA (test code = 138 mmol/L 135-145 3446433858) K (test code = 4.1 mmol/L 3.5-5 3849106647) CL (test code = 103 mmol/L 98-108 7082247578) CO2 TOTAL (test code = 26 mmol/L 23-31 7947269689) AGAP (test code = 2-16 2105721033) BUN (test code = 18 mg/dL 7-23 7058118708) GLUCOSE (test code = 157 mg/dL 70-110 H 7329225436) CREATININE (test code = 1.19 mg/dL 0.6-1.25 5132851857) TOTAL BILI (test code = 1.1 mg/dL 0.1-1.1 1271259788) CALCIUM (test code = 9.2 mg/dL 8.6-10.6 3705310852) T PROTEIN (test code = 6.8 g/dL 6.3-8.2 4956916218) ALBUMIN (test code = 4.0 g/dL 3.5-5 8843490817) ALK PHOS (test code = 51 U/L 34-122 0490135873) ALTv (test code = 16 U/L 5-50 1742-6) AST(SGOT) (test code = 23 U/L 13-40 4621164729) eGFR Calculation mL/min/1.73m2 (Non-) (test code = 1969368851) eGFR Calculation mL/min/1.73m2 () (test code = 2364643068) ALYSSA (test code = ALYSSA) Association of [...] tests). Lab Interpretation Abnormal (test code = 62781-3) [facility]. METABOLIC PANEL (02287)2020-03-23 00:03:00 Test Item Value Reference Range Interpretation Comments NA (test code = 138 mmol/L 135-145 2300714226) K (test code = 4.1 mmol/L 3.5-5 5624124499) CL (test code = 103 mmol/L 98-108 9959784825) CO2 TOTAL (test code = 26 mmol/L 23-31 6011737438) AGAP (test code = 2-16 0146477737) BUN (test code = 18 mg/dL 7-23 2521480444) GLUCOSE (test code = 157 mg/dL 70-110 H 7044747290) CREATININE (test code = 1.19 mg/dL 0.6-1.25 1432516949) TOTAL BILI (test code = 1.1 mg/dL 0.1-1.2 5821618834) CALCIUM (test code = 9.2 mg/dL 8.6-10.6 6833174588) T PROTEIN (test code = 6.8 g/dL 6.3-8.2 1797045066) ALBUMIN (test code = 4.0 g/dL 3.5-5 0005077550) ALK PHOS (test code = 51 U/L 34-122 9224333847) ALTv (test code = 16 U/L 5-50 1742-6) AST(SGOT) (test code = 23 U/L 13-40 8785061088) eGFR Calculation mL/min/1.73m2 (Non-) (test code = 4839720061) eGFR Calculation mL/min/1.73m2 () (test code = 1663358356) ALYSSA (test code = ALYSSA) Association of [...] tests). Lab Interpretation Abnormal (test code = 15866-2) [facility] WITH [id number] 23:57:00 Test Item Value Reference Range Interpretation [...] RDW-SD (test code = 49.6 fL 38.5-51.6 41799-3) RDW-CV (test code = 14.6 % 12.1-15.4 788-0) PLT (test code = See_Comment L [Automated 777-3) message] The sy stem which generated this result transmitted reference range : 150 - 328 10*3/ ?L. The reference r corey was not used to interpret this result as normal/abnormal . MPV (test code = 9.9 fL 9.8-13 05682-9) NRBC/100 WBC (test See_Comment [Automat ed code = 9020355788) message] The system which generated this result transmitted reference range : 0.0 - 10.0 /100 WBCs. The refer ence range was not u sed to interpret th is result as normal/abnormal . NRBC x10^3 (test code <0.01 See_Comment [Auto mated = 0510139438) message] The s ystem which generated this result transmitted reference range : 10*3/?L. The reference range was not used to interpret this result as normal/abnormal . GRAN MAT (NEUT) % 55.3 % (test code = 770-8) IMM GRAN % (test code 0.20 % = 6514910975) LYMPH % (test code = 28.3 % 736-9) MONO % (test code = 12.6 % 5905-5) EOS % (test code = 3.1 % 713-8) BASO % (test code = 0.5 % 706-2) GRAN MAT x10^3(ANC) 3.20 10*3/uL 1.99-6.95 (test code = 7250282274) IMM GRAN x10^3 (test <0.03 0-0.06 code = 8836480501) LYMPH x10^3 (test code 1.64 10*3/uL 1.09-3.23 = 731-0) MONO x10^3 (test code 0.73 10*3/uL 0.36-1.02 = 742-7) EOS x10^3 (test code = 0.18 10*3/uL 0.06-0.53 711-2) BASO x10^3 (test code 0.03 10*3/uL 0.01-0.09 = 704-7) Lab Interpretation Abnormal (test code = 72297-2) [facility] WITH [id number] 23:57:00 Test Item Value Reference Range Interpretation [...] RDW-SD (test code = 49.6 fL 38.5-51.6 61828-4) RDW-CV (test code = 14.6 % 12.1-15.4 788-0) PLT (test code = See_Comment L [Automated 777-3) message] The sy stem which generated this result transmitted reference range : 150 - 328 10*3/ ?L. The reference r corey was not used to interpret this result as normal/abnormal . MPV (test code = 9.9 fL 9.8-13 30907-0) NRBC/100 WBC (test See_Comment [Automat ed code = 7053826333) message] The system which generated this result transmitted reference range : 0.0 - 10.0 /100 WBCs. The refer ence range was not u sed to interpret th is result as normal/abnormal . NRBC x10^3 (test code <0.01 See_Comment [Auto mated = 1637488257) message] The s ystem which generated this result transmitted reference range : 10*3/?L. The reference range was not used to interpret this result as normal/abnormal . GRAN MAT (NEUT) % 55.3 % (test code = 770-8) IMM GRAN % (test code 0.20 % = 9427199856) LYMPH % (test code = 28.3 % 736-9) MONO % (test code = 12.6 % 5905-5) EOS % (test code = 3.1 % 713-8) BASO % (test code = 0.5 % 706-2) GRAN MAT x10^3(ANC) 3.20 10*3/uL 1.99-6.95 (test code = 3630843620) IMM GRAN x10^3 (test <0.03 0-0.06 code = 3229506820) LYMPH x10^3 (test code 1.64 10*3/uL 1.09-3.23 = 731-0) MONO x10^3 (test code 0.73 10*3/uL 0.36-1.02 = 742-7) EOS x10^3 (test code = 0.18 10*3/uL 0.06-0.53 711-2) BASO x10^3 (test code 0.03 10*3/uL 0.01-0.09 = 704-7) Lab Interpretation Abnormal (test code = 93069-5) [facility] [id number] 21:48:00 Test Item Value Reference Range Interpretation Comments SARS-CoV-2 (test code = Not Detected Not Detected 99662-0) ALYSSA (test code = ALYSSA) ID NOW COVID-19 Assay is an isothermal nucleic acid amplification test intended for the qualitative detection of nucleic acid from SARS-CoV-2 viral RNA in nasopharyngeal (DIRECTOR OF SOCIAL MEDIA MARKETING) specimens. It is used under Emergency Use [...] indicated. Lab Interpretation Normal (test code = 79467-2) [facility] [id number] 21:44:00 Test Item Value Reference Range Interpretation Comments TROPONIN I (test 0.027 ng/mL See_Comment [Automated code = 0663666535) message] The system which generated this result [...] ? Lab Interpretation Normal (test code = 86005-6) [facility] (PT) / [id number] 21:41:00 Test Item Value Reference Range Interpretation [...] tions. Lab Interpretation (test Normal code = 57238-3) [facility] [id number] 21:39:00 Test Item Value Reference Range Interpretation Comments NT-proBNP (test code 663 pg/mL See_Comment H [Autom ated = 3663328442) message] The system which generated this result transmitted reference range : <=450. The reference range was not used to interpret this result as normal/abnormal . ALYSSA (test code = ALYSSA) Biotin has been reported to cause a negative bias, interpret results relative to patient's use of biotin. Lab Interpretation Abnormal (test code = 86487-3) [facility]. METABOLIC PANEL (68466)2020-03-21 21:37:00 Test Item Value Reference Range Interpretation Comments NA (test code = 139 mmol/L 135-145 2999275807) K (test code = 4.1 mmol/L 3.5-5 0172246794) CL (test code = 102 mmol/L 98-108 0452157624) CO2 TOTAL (test code = 29 mmol/L 23-31 3641899212) AGAP (test code = 2-16 3309918738) BUN (test code = 18 mg/dL 7-23 1289781694) GLUCOSE (test code = 277 mg/dL 70-110 H 8047661154) CREATININE (test code = 1.23 mg/dL 0.6-1.25 2555783793) TOTAL BILI (test code = 1.3 mg/dL 0.1-1.1 H 9996487757) CALCIUM (test code = 9.8 mg/dL 8.6-10.6 6192811282) T PROTEIN (test code = 7.0 g/dL 6.3-8.2 3505658064) ALBUMIN (test code = 4.2 g/dL 3.5-5 3246052816) ALK PHOS (test code = 50 U/L 34-122 5460669054) ALTv (test code = 15 U/L 5-50 1742-6) AST(SGOT) (test code = 22 U/L 13-40 1942147630) eGFR Calculation mL/min/1.73m2 (Non-) (test code = 1889590359) eGFR Calculation mL/min/1.73m2 () (test code = 3865804998) ALYSSA (test code = ALYSSA) Association of [...] tests). Lab Interpretation Abnormal (test code = 61896-3) [facility] SouthLip[facility] [id number] 21:37:00 Test Item Value Reference Range Interpretation Comments LIPASE (test code = 0295660662) 161 U/L 0-220 Lab Interpretation (test code = Normal 04959-3) [facility] 1 [id number] 20:46:31HISTORY: Chest pain. TECHNIQUE: Portable AP view of the chest is obtained. Comparison made with03/04/2020 study. FINDINGS: No acute pneumonia. No pneumothorax or pleural effusion orpulmonary congestion detected. Mild cardiomegaly and intrathecal electrodesin lower thoracic spinal canal noted. Mild thoracolumbar scoliosis noted. CONCLUSIONS: Mild cardiomegaly.[facility], Radiant Results Inft User - 03/21/2020 3:47 PM CDTHISTORY: Chest pain.TECHNIQUE: Portable AP view of the chest is obtained. Comparison made with03/04/2020 study.FINDINGS: No acute pneumonia. No pneumothorax or pleural effusion orpulmonary congestion detected. Mild cardiomegaly and intrathecal electrodesin lower thoracic spinal canal noted. Mild thoracolumbar scoliosis noted.CONCLUSIONS: Mild cardiomegaly. [facility] SouthL[facility] Whole [id number] 20:43:00 Test Item Value Reference Range Interpretation Comments LACTIC ACID (test code = 1.91 mmol/L 0.3-2.6 1476647877) [facility] GLUCOSE (AUTOMATED)2020-03-07 20:58:00 Test Item Value Reference Range Interpretation Comments POCT GLU (test code = 9910953311) 216 mg/dL 70-110 H Lab Interpretation (test code = Abnormal 18445-9) [facility] GLUCOSE (AUTOMATED)2020-03-07 16:00:00 Test Item Value Reference Range Interpretation Comments POCT GLU (test code = 9617319955) 168 mg/dL 70-110 H Lab Interpretation (test code = Abnormal 65339-6) [facility] GLUCOSE (AUTOMATED)2020-03-07 13:07:00 Test Item Value Reference Range Interpretation Comments POCT GLU (test code = 0585012043) 148 mg/dL 70-110 H Lab Interpretation (test code = Abnormal 40305-4) [facility]TR[facility]IN [id number] 11:27:00 Test Item Value Reference Range Interpretation Comments TROPONIN I (test 0.051 ng/mL See_Comment H [Automated code = 8417533050) message] The system which generated this result [...] ? Lab Interpretation Abnormal (test code = 93648-5) [facility] [id number] 11:24:00 Test Item Value Reference Range Interpretation Comments NT-proBNP (test code 336 pg/mL See_Comment [Autom ated = 8804527828) message] The system which generated this result transmitted reference range : <=450. The reference range was not used to interpret this result as normal/abnormal . ALYSSA (test code = ALYSSA) Biotin has been reported to cause a negative bias, interpret results relative to patient's use of biotin. Lab Interpretation Normal (test code = 59798-5) [facility] (NA, K, CL, CO2, GLUCOSE, BUN, CREATININE, CA)2020-03-07 11:14:00 Test Item Value Reference Range Interpretation Comments NA (test code = 138 mmol/L 135-145 2668205172) K (test code = 3.8 mmol/L 3.5-5 0525092949) CL (test code = 97 mmol/L 98-108 L 9679577913) CO2 TOTAL (test code = 30 mmol/L 23-31 1717079643) AGAP (test code = 2-16 0808961432) BUN (test code = 36 mg/dL 7-23 H 7729479337) GLUCOSE (test code = 140 mg/dL 70-110 H 6031842530) CREATININE (test code = 1.50 mg/dL 0.6-1.25 H 4583094923) CALCIUM (test code = 10.0 mg/dL 8.6-10.6 5125960145) eGFR Calculation mL/min/1.73m2 (Non-) (test code = 8890813782) eGFR Calculation mL/min/1.73m2 () (test code = 3021007289) ALYSSA (test code = ALYSSA) Association of [...] tests). Lab Interpretation Abnormal (test code = 32204-1) [facility] SouthURIC [id number] 11:14:00 Test Item Value Reference Range Interpretation Comments URIC ACID (test code = 5951203956) 5.4 mg/dL 3.6-8 Lab Interpretation (test code = Normal 07860-1) [facility] WITH [id number] 10:53:00 Test Item Value Reference Range Interpretation Comments WBC (test code = See_Comment [Automated 4690-2) message] The sy stem which generated this result transmitted reference range : 4.20 - 10.70 10*3/?L. The reference range was not used to interpret this result as normal/abnormal . RBC (test code = See_Comment L [Automated 059-8) message] The sy stem which generated this [...] RDW-SD (test code = 45.1 fL 38.5-51.6 32086-9) RDW-CV (test code = 14.2 % 12.1-15.4 788-0) PLT (test code = See_Comment [Automated 777-3) message] The sy stem which generated this result transmitted reference range : 150 - 328 10*3/ ?L. The reference r corey was not used to interpret this result as normal/abnormal . MPV (test code = 9.8 fL 9.8-13 90629-8) NRBC/100 WBC (test See_Comment [Automat ed code = 8882917325) message] The system which generated this result transmitted reference range : 0.0 - 10.0 /100 WBCs. The refer ence range was not u sed to interpret th is result as normal/abnormal . NRBC x10^3 (test code <0.01 See_Comment [Auto mated = 4878656370) message] The s ystem which generated this result transmitted reference range : 10*3/?L. The reference range was not used to interpret this result as normal/abnormal . GRAN MAT (NEUT) % 51.0 % (test code = 770-8) IMM GRAN % (test code 0.50 % = 5547343804) LYMPH % (test code = 32.0 % 736-9) MONO % (test code = 11.3 % 5905-5) EOS % (test code = 4.3 % 713-8) BASO % (test code = 0.9 % 706-2) GRAN MAT x10^3(ANC) 2.85 10*3/uL 1.99-6.95 (test code = 8802426867) IMM GRAN x10^3 (test 0.03 10*3/uL 0-0.06 code = 5433303109) LYMPH x10^3 (test code 1.79 10*3/uL 1.09-3.23 = 731-0) MONO x10^3 (test code 0.63 10*3/uL 0.36-1.02 = 742-7) EOS x10^3 (test code = 0.24 10*3/uL 0.06-0.53 711-2) BASO x10^3 (test code 0.05 10*3/uL 0.01-0.09 = 704-7) Lab Interpretation Abnormal (test code = 61734-5) [facility] GLUCOSE (AUTOMATED)2020-03-06 22:46:00 Test Item Value Reference Range Interpretation Comments POCT GLU (test code = 3628983132) 209 mg/dL 70-110 H Lab Interpretation (test code = Abnormal 96253-7) [facility] GLUCOSE (AUTOMATED)2020-03-06 16:23:00 Test Item Value Reference Range Interpretation Comments POCT GLU (test code = 3653768838) 254 mg/dL 70-110 H Lab Interpretation (test code = Abnormal 09708-6) [facility] GLUCOSE (AUTOMATED)2020-03-06 12:51:00 Test Item Value Reference Range Interpretation Comments POCT GLU (test code = 1433217625) 126 mg/dL 70-110 H Lab Interpretation (test code = Abnormal 55899-8) [facility] [id number] 10:16:00 Test Item Value Reference Range Interpretation Comments TROPONIN I (test 0.056 ng/mL See_Comment H [Automated code = 6597210161) message] The system which generated this result [...] ? Lab Interpretation Abnormal (test code = 65708-0) [facility] (NA, K, CL, CO2, GLUCOSE, BUN, CREATININE, CA)2020-03-06 10:13:00 Test Item Value Reference Range Interpretation Comments NA (test code = 136 mmol/L 135-145 5093849422) K (test code = 4.1 mmol/L 3.5-5 7106813263) CL (test code = 95 mmol/L 98-108 L 5830589567) CO2 TOTAL (test code = 30 mmol/L 23-31 8330412001) AGAP (test code = 2-16 2259456307) BUN (test code = 35 mg/dL 7-23 H 0236079258) GLUCOSE (test code = 174 mg/dL 70-110 H 3632887134) CREATININE (test code = 1.67 mg/dL 0.6-1.25 H 4055701123) CALCIUM (test code = 9.7 mg/dL 8.6-10.6 0469639318) eGFR Calculation mL/min/1.73m2 (Non-) (test code = 4988294854) eGFR Calculation mL/min/1.73m2 () (test code = 0571912398) ALYSSA (test code = ALYSSA) Association of [...] tests). Lab Interpretation Abnormal (test code = 07660-4) [facility] WITH [id number] 09:16:00 Test Item Value Reference Range Interpretation Comments WBC (test code = See_Comment [Automated 3554-2) message] The sy stem which generated this result transmitted reference range : 4.20 - 10.70 10*3/?L. The reference range was not used to interpret this result as normal/abnormal . RBC (test code = See_Comment L [Automated 429-8) message] The sy stem which generated this [...] RDW-SD (test code = 45.6 fL 38.5-51.6 73709-3) RDW-CV (test code = 14.3 % 12.1-15.4 788-0) PLT (test code = See_Comment [Automated 997-3) message] The sy stem which generated this result transmitted reference range : 150 - 328 10*3/ ?L. The reference r corey was not used to interpret this result as normal/abnormal . MPV (test code = 9.8 fL 9.8-13 10911-3) NRBC/100 WBC (test See_Comment [Automat ed code = 7570511728) message] The system which generated this result transmitted reference range : 0.0 - 10.0 /100 WBCs. The refer ence range was not u sed to interpret th is result as normal/abnormal . NRBC x10^3 (test code <0.01 See_Comment [Auto mated = 4585447818) message] The s ystem which generated this result transmitted reference range : 10*3/?L. The reference range was not used to interpret this result as normal/abnormal . GRAN MAT (NEUT) % 56.1 % (test code = 770-8) IMM GRAN % (test code 0.10 % = 7877610281) LYMPH % (test code = 29.7 % 736-9) MONO % (test code = 9.6 % 5905-5) EOS % (test code = 3.8 % 713-8) BASO % (test code = 0.7 % 706-2) GRAN MAT x10^3(ANC) 3.79 10*3/uL 1.99-6.95 (test code = 4970586678) IMM GRAN x10^3 (test <0.03 0-0.06 code = 4275114993) LYMPH x10^3 (test code 2.01 10*3/uL 1.09-3.23 = 731-0) MONO x10^3 (test code 0.65 10*3/uL 0.36-1.02 = 742-7) EOS x10^3 (test code = 0.26 10*3/uL 0.06-0.53 711-2) BASO x10^3 (test code 0.05 10*3/uL 0.01-0.09 = 704-7) Lab Interpretation Abnormal (test code = 39133-7) [facility] 01:25:00 Test Item Value Reference Range Interpretation Comments POCT GLU (test code = 1281657261) 208 mg/dL 70-110 H Lab Interpretation (test code = Abnormal 73138-9) [facility] [id number] 00:08:00 Test Item Value Reference Range Interpretation Comments TROPONIN I (test 0.047 ng/mL See_Comment H [Automated code = 9242167174) message] The system which generated this result [...] ? Lab Interpretation Abnormal (test code = 48252-1) [facility] GLUCOSE (AUTOMATED)2020-03-05 21:19:00 Test Item Value Reference Range Interpretation Comments POCT GLU (test code = 4599224180) 234 mg/dL 70-110 H Lab Interpretation (test code = Abnormal 48514-7) [facility] GLUCOSE (AUTOMATED)2020-03-05 16:55:00 Test Item Value Reference Range Interpretation Comments POCT GLU (test code = 7672598557) 258 mg/dL 70-110 H Lab Interpretation (test code = Abnormal 01359-6) [facility] GLUCOSE (AUTOMATED)2020-03-05 12:59:00 Test Item Value Reference Range Interpretation Comments POCT GLU (test code = 2600333944) 194 mg/dL 70-110 H Lab Interpretation (test code = Abnormal 52724-4) [facility] [id number] 10:54:00 Test Item Value Reference Range Interpretation Comments TROPONIN I (test 0.071 ng/mL See_Comment H [Automated code = 7426196634) message] The system which generated this result [...] ? Lab Interpretation Abnormal (test code = 13520-0) [facility] (NA, K, CL, CO2, GLUCOSE, BUN, CREATININE, CA)2020-03-05 10:43:00 Test Item Value Reference Range Interpretation Comments NA (test code = 139 mmol/L 135-145 4526214132) K (test code = 4.1 mmol/L 3.5-5 1592922946) CL (test code = 101 mmol/L 98-108 2317995338) CO2 TOTAL (test code = 27 mmol/L 23-31 2117561799) AGAP (test code = 2-16 3845297938) BUN (test code = 25 mg/dL 7-23 H 4805071530) GLUCOSE (test code = 243 mg/dL 70-110 H 0150185705) CREATININE (test code = 1.22 mg/dL 0.6-1.25 3076723686) CALCIUM (test code = 9.8 mg/dL 8.6-10.6 3195179643) eGFR Calculation mL/min/1.73m2 (Non-) (test code = 0231952490) eGFR Calculation mL/min/1.73m2 () (test code = 2765173266) ALYSSA (test code = ALYSSA) Association of [...] tests). Lab Interpretation Abnormal (test code = 08090-8) [facility] WITH [id number] 10:23:00 Test Item Value Reference Range Interpretation Comments WBC (test code = See_Comment [Automated message] 6690-2) The system [employer] generated this result transmitted ref erence range: 4.20 - 1 0.70 10*3/?L. The re ference range was not u sed to interpret this result as normal/abnor mal. RBC (test code = See_Comment [Automated message] 789-8) The system [employer] generated this result transmitted ref erence range: [...] RDW-SD (test code 47.8 fL 38.5-51.6 = 23956-5) RDW-CV (test code 14.4 % 12.1-15.4 = 788-0) PLT (test code = See_Comment [Automated message] 777-3) The system [employer] generated this result transmitted ref erence range: 150 - 32 8 10*3/?L. The re ference range was not u sed to interpret this result as normal/abnor mal. MPV (test code = 9.8 fL 9.8-13 41595-0) NRBC/100 WBC (test See_Comment [Automat ed message] code = 9289657384) The syste [employer] which generated this result transmitted ref erence range: 0.0 - 10 .0 /100 WBCs. The refer ence range was not u sed to interpret this result as normal/abnor mal. NRBC x10^3 (test <0.01 See_Comment [Automated message] code = 3717177503) The syste m which generated this result transmitted ref erence range: 10*3/?L. The reference range was not used to interpr et this result as normal/abnormal . GRAN MAT (NEUT) % 48.8 % (test code = 770-8) IMM GRAN % (test 0.20 % code = 2027709181) LYMPH % (test code 34.7 % = 736-9) MONO % (test code 10.8 % = 5905-5) EOS % (test code = 4.9 % 713-8) BASO % (test code 0.6 % = 706-2) GRAN MAT 2.49 10*3/uL 1.99-6.95 x10^3(ANC) (test code = 2187357419) IMM GRAN x10^3 <0.03 0-0.06 (test code = 0552356600) LYMPH x10^3 (test 1.77 10*3/uL 1.09-3.23 code = 731-0) MONO x10^3 (test 0.55 10*3/uL 0.36-1.02 code = 742-7) EOS x10^3 (test 0.25 10*3/uL 0.06-0.53 code = 711-2) BASO x10^3 (test 0.03 10*3/uL 0.01-0.09 code = 704-7) [facility] [id number] 03:06:08 No acute cardiopulmonary process. Unchanged enlargement [...] terminating over themid to lower thoracic spine. [facility], Radiant Results Inft User - 03/04/2020 10:07 [...] reviewed this study and agree with the abovereport.[facility] CORONAVIRUS COVID-19 [id number] 00:34:00 Test Item Value Reference Range Interpretation Comments SARS-CoV-2 (test code = Not Detected Not Detected 91831-5) ALYSSA (test code = ALYSSA) ID NOW COVID-19 Assay is an isothermal nucleic acid amplification test intended for the qualitative detection of nucleic acid from SARS-CoV-2 viral RNA in nasopharyngeal (DIRECTOR OF SOCIAL MEDIA MARKETING) specimens. It is used under Emergency Use [...] indicated. Lab Interpretation Normal (test code = 11120-5) [facility] [id number] 00:08:00 Test Item Value Reference Range Interpretation Comments TROPONIN I (test 0.056 ng/mL See_Comment H [Automated code = 5565130198) message] The system which generated this result [...] ? Lab Interpretation Abnormal (test code = 21232-9) [facility]N-TERMINAL [id number] 00:04:00 Test Item Value Reference Range Interpretation Comments NT-proBNP (test code 562 pg/mL See_Comment H [Autom ated = 8720007889) message] The system which generated this result transmitted reference range : <=450. The reference range was not used to interpret this result as normal/abnormal . ALYSSA (test code = ALYSSA) Biotin has been reported to cause a negative bias, interpret results relative to patient's use of biotin. Lab Interpretation Abnormal (test code = 33867-7) [facility] SouthProthrombin Time (PT) / [id number] 23:57:00 Test Item Value Reference Range Interpretation [...] tions. Lab Interpretation (test Normal code = 00554-5) [facility] Metabolic [facility] (NA, K, CL, CO2, GLUCOSE, BUN, CREATININE, CA)2020-03-04 23:56:00 Test Item Value Reference Range Interpretation Comments NA (test code = 139 mmol/L 135-145 2810650706) K (test code = 4.1 mmol/L 3.5-5 9639552460) CL (test code = 102 mmol/L 98-108 8751775436) CO2 TOTAL (test code = 29 mmol/L 23-31 4595417175) AGAP (test code = 2-16 1242507240) BUN (test code = 23 mg/dL 7- 5116006411) GLUCOSE (test code = 193 mg/dL 70-110 H 3531895986) CREATININE (test code = 1.25 mg/dL 0.6-1.25 0779487361) CALCIUM (test code = 9.7 mg/dL 8.6-10.6 4723062694) eGFR Calculation mL/min/1.73m2 (Non-) (test code = 3430102550) eGFR Calculation mL/min/1.73m2 () (test code = 4323795053) ALYSSA (test code = ALYSSA) Association of [...] tests). Lab Interpretation Abnormal (test code = 33828-4) [facility]Hep[facility] (ALB, T.PRO, BILI T, BU/BC, ALT, AST, ALK PHOS)2020-03-04 23:56:00 Test Item Value Reference Range Interpretation Comments TOTAL BILI (test code = 9667969976) 1.1 mg/dL 0.1-1.1 BILI UNCON (test code = 6095348141) 1.1 mg/dL 0.1-1.1 BILI CONJ (test code = 6757699712) 0.0 mg/dL 0-0.3 T PROTEIN (test code = 4838803833) 7.1 g/dL 6.3-8.2 ALBUMIN (test code = 9300960361) 4.1 g/dL 3.5-5 ALK PHOS (test code = 3071330160) 61 U/L 34-122 ALTv (test code = 1742-6) 16 U/L 5-50 AST(SGOT) (test code = 8291616387) 23 U/L 13-40 Lab Interpretation (test code = Normal 21387-1) [facility] SouthLipase [id number] 23:56:00 Test Item Value Reference Range Interpretation Comments LIPASE (test code = 6489954410) 149 U/L 0-220 Lab Interpretation (test code = Normal 70206-9) [facility] SouthaPTT2020-04-19 23:56:00 Test Item Value Reference Range Interpretation Comments APTT Patient (test See_Comment [Automat ed code = 3173-2) message] The system which generated this result transmitted reference range : 23 - 38 Seconds . The reference range was not used to interpr et this result as normal/abnormal . ALYSSA (test code = ALYSSA) The [facility] patient population mean normal value for aPTT is 30 seconds. Lab Interpretation Normal (test code = 61843-3) [facility]CBC WITH [id number] 23:46:00 Test Item Value Reference Range Interpretation [...] RDW-SD (test code = 48.3 fL 38.5-51.6 83166-3) RDW-CV (test code = 14.7 % 12.1-15.4 788-0) PLT (test code = See_Comment [Automated 777-3) message] The sy stem which generated this result transmitted reference range : 150 - 328 10*3/ ?L. The reference r corey was not used to interpret this result as normal/abnormal . MPV (test code = 9.8 fL 9.8-13 43578-4) NRBC/100 WBC (test See_Comment [Automat ed code = 5895599604) message] The system which generated this result transmitted reference range : 0.0 - 10.0 /100 WBCs. The refer ence range was not u sed to interpret th is result as normal/abnormal . NRBC x10^3 (test code <0.01 See_Comment [Auto mated = 6217358486) message] The s ystem which generated this result transmitted reference range : 10*3/?L. The reference range was not used to interpret this result as normal/abnormal . GRAN MAT (NEUT) % 60.1 % (test code = 770-8) IMM GRAN % (test code 0.20 % = 3326432576) LYMPH % (test code = 26.4 % 736-9) MONO % (test code = 9.9 % 5905-5) EOS % (test code = 2.8 % 713-8) BASO % (test code = 0.6 % 706-2) GRAN MAT x10^3(ANC) 3.17 10*3/uL 1.99-6.95 (test code = 4196126316) IMM GRAN x10^3 (test <0.03 0-0.06 code = 6837210628) LYMPH x10^3 (test code 1.39 10*3/uL 1.09-3.23 = 731-0) MONO x10^3 (test code 0.52 10*3/uL 0.36-1.02 = 742-7) EOS x10^3 (test code = 0.15 10*3/uL 0.06-0.53 711-2) BASO x10^3 (test code 0.03 10*3/uL 0.01-0.09 = 704-7) Lab Interpretation Abnormal (test code = 21807-9) [facility] GLUCOSE (AUTOMATED)2020-03-02 16:04:00 Test Item Value Reference Range Interpretation Comments POCT GLU (test code = 4873853521) 214 mg/dL 70-110 H Lab Interpretation (test code = Abnormal 66452-0) [facility] GLUCOSE (AUTOMATED)2020-03-02 16:04:00 Test Item Value Reference Range Interpretation Comments POCT GLU (test code = 3751921853) 271 mg/dL 70-110 H Lab Interpretation (test code = Abnormal 82832-4) [facility]N-[facility]MINAL [id number] 09:43:00 Test Item Value Reference Range Interpretation Comments NT-proBNP (test code 1670 pg/mL See_Comment H [Autom ated = 1094432564) message] The system which generated this result transmitted reference range : <=450. The reference range was not used to interpret this result as normal/abnormal . ALYSSA (test code = ALYSSA) Biotin has been reported to cause a negative bias, interpret results relative to patient's use of biotin. Lab Interpretation Abnormal (test code = 13392-0) [facility] METABOLIC PANEL (NA, K, CL, CO2, GLUCOSE, BUN, CREATININE, CA)2020-03-02 09:33:00 Test Item Value Reference Range Interpretation Comments NA (test code = 143 mmol/L 135-145 8410055945) K (test code = 3.8 mmol/L 3.5-5 1829572507) CL (test code = 105 mmol/L 98-108 7964934198) CO2 TOTAL (test code = 28 mmol/L 23-31 4884409176) AGAP (test code = 2-16 7373006731) BUN (test code = 19 mg/dL 7-23 9164970741) GLUCOSE (test code = 152 mg/dL 70-110 H 8588121964) CREATININE (test code = 1.18 mg/dL 0.6-1.25 1219697025) CALCIUM (test code = 9.0 mg/dL 8.6-10.6 7062417917) eGFR Calculation mL/min/1.73m2 (Non-) (test code = 4265642169) eGFR Calculation mL/min/1.73m2 () (test code = 6429807873) ALYSSA (test code = ALYSSA) Association of [...] tests). Lab Interpretation Abnormal (test code = 92419-0) [facility]MAGNESIUM2020-04-17 09:33:00 Test Item Value Reference Range Interpretation Comments MAGNESIUM (test code = 3327572847) 1.8 mg/dL 1.7-2.4 Lab Interpretation (test code = Normal 03676-8) [facility]POCT GLUCOSE (AUTOMATED)2020-03-01 20:42:00 Test Item Value Reference Range Interpretation Comments POCT GLU (test code = 0654234219) 231 mg/dL 70-110 H Lab Interpretation (test code = Abnormal 80057-1) [facility] SouthVITAMIN B12, [id number] 11:51:00 Test Item Value Reference Range Interpretation Comments VIT B12 (test code = 325 pg/mL 240-930 8250815774) ALYSSA (test code = ALYSSA) Biotin has been reported to cause a positive bias, interpret results relative to patient's use of biotin. Lab Interpretation (test Normal code = 44128-7) [facility] SouthFOLATE2020-04-16 11:49:00 Test Item Value Reference Range Interpretation Comments FOLATE SER (test code = >20.0 3-20 H Slig ht hemolysis 1467907854) Lab Interpretation (test Abnormal code = 05029-0) [facility] SouthPROCALCITONIN2020-04-16 10:49:00 Test Item Value Reference Range Interpretation Comments Procalcitonin (test 3.05 ng/mL <0.07 H code = 1608679191) ALYSSA (test code = ALYSSA) INTERPRETATION OF [...] lung abscess/empyema. For further information please refer to:[email or web address] Lab Interpretation Abnormal (test code = 24488-2) [facility] SouthWENDY [id number] 09:58:00 Test Item Value Reference Range Interpretation Comments TROPONIN I (test 0.093 ng/mL See_Comment H [Automated code = 2977698841) message] The system which generated this result [...] ? Lab Interpretation Abnormal (test code = 98879-9) [facility]N-TERMINAL [id number] 09:55:00 Test Item Value Reference Range Interpretation Comments NT-proBNP (test code 4450 pg/mL See_Comment H [Autom ated = 1266349081) message] The system which generated this result transmitted reference range : <=450. The reference range was not used to interpret this result as normal/abnormal . ALYSSA (test code = ALYSSA) Biotin has been reported to cause a negative bias, interpret results relative to patient's use of biotin. Lab Interpretation Abnormal (test code = 55587-1) [facility] SouthBasi Metabolic Panel (NA, K, CL, CO2, GLUCOSE, BUN, CREATININE, CA)2020-03-01 09:50:00 Test Item Value Reference Range Interpretation Comments NA (test code = 141 mmol/L 135-145 7569877977) K (test code = 3.5 mmol/L 3.5-5 1341248420) CL (test code = 105 mmol/L 98-108 9166864348) CO2 TOTAL (test code = 26 mmol/L 23-31 0728747436) AGAP (test code = 2-16 6032521960) BUN (test code = 13 mg/dL 7-23 4016958629) GLUCOSE (test code = 219 mg/dL 70-110 H 7121823176) CREATININE (test code = 1.01 mg/dL 0.6-1.25 8220221062) CALCIUM (test code = 8.7 mg/dL 8.6-10.6 8729835901) eGFR Calculation mL/min/1.73m2 (Non-) (test code = 1861228352) eGFR Calculation mL/min/1.73m2 () (test code = 4899829398) ALYSSA (test code = ALYSSA) Association of [...] tests). Lab Interpretation Abnormal (test code = 51026-9) [facility] SouthMagnesium [id number] 09:50:00 Test Item Value Reference Range Interpretation Comments MAGNESIUM (test code = 3958487878) 1.9 mg/dL 1.7-2.4 Lab Interpretation (test code = Normal 46909-6) [facility] WITH [id number] 09:22:00 Test Item Value Reference Range Interpretation [...] RDW-SD (test code = 47.8 fL 38.5-51.6 53280-6) RDW-CV (test code = 14.8 % 12.1-15.4 788-0) PLT (test code = See_Comment L [Automated 777-3) message] The sy stem which generated this result transmitted reference range : 150 - 328 10*3/ ?L. The reference r corey was not used to interpret this result as normal/abnormal . MPV (test code = 9.9 fL 9.8-13 12189-6) NRBC/100 WBC (test See_Comment [Automat ed code = 7787440207) message] The system which generated this result transmitted reference range : 0.0 - 10.0 /100 WBCs. The refer ence range was not u sed to interpret th is result as normal/abnormal . NRBC x10^3 (test code <0.01 See_Comment [Auto mated = 2382951358) message] The s ystem which generated this result transmitted reference range : 10*3/?L. The reference range was not used to interpret this result as normal/abnormal . GRAN MAT (NEUT) % 66.0 % (test code = 770-8) IMM GRAN % (test code 0.30 % = 0210928945) LYMPH % (test code = 20.8 % 736-9) MONO % (test code = 9.5 % 5905-5) EOS % (test code = 2.8 % 713-8) BASO % (test code = 0.6 % 706-2) GRAN MAT x10^3(ANC) 4.44 10*3/uL 1.99-6.95 (test code = 9537916625) IMM GRAN x10^3 (test <0.03 0-0.06 code = 3866291627) LYMPH x10^3 (test code 1.40 10*3/uL 1.09-3.23 = 731-0) MONO x10^3 (test code 0.64 10*3/uL 0.36-1.02 = 742-7) EOS x10^3 (test code = 0.19 10*3/uL 0.06-0.53 711-2) BASO x10^3 (test code 0.04 10*3/uL 0.01-0.09 = 704-7) Lab Interpretation Abnormal (test code = 28902-6) [facility] SouthGLYCOSYLATED HEMOGLOBIN (A1C)2020-03-01 06:49:00 Test Item Value Reference Interpretation Comments Range HGB A1C (test code = See_Comment H [Autom ated 2928-4) message] The system which generated this result transmitted reference range : 4.0 - 6.0 % NGSP. The reference range was not used to interpret this result as normal/abnormal . ALYSSA (test code = %A1C (NGSP) ALYSSA) Interpretation (ADA)4.8-5.6 ? ? Normal or (Non-Diabetic Range)5.7-6.4 ? ? Increased Risk (Pre-Diabetic)>6.5 ?Diabetes Indicated Lab Interpretation Abnormal (test code = 67532-5) [facility]URIC [id number] 06:25:00 Test Item Value Reference Range Interpretation Comments URIC ACID (test code = 5925880398) 2.3 mg/dL 3.6-8 L Lab Interpretation (test code = Abnormal 11059-8) [facility] SouthSEDIMENTATION [id number] 05:25:00 Test Item Value Reference Range Interpretation Comments ESR (test code = See_Comment H [Automated message] 3522606457) The system [employer] generated this result transmitted ref erence range: 0 - 10 m m/HR. The reference r corey was not used to interpret this result as normal/abnor mal. Lab Interpretation (test Abnormal code = 99016-8) [facility]N-TERMINAL [id number] 04:07:00 Test Item Value Reference Range Interpretation Comments NT-proBNP (test code 4080 pg/mL See_Comment H [Autom ated = 5053204790) message] The system which generated this result transmitted reference range : <=450. The reference range was not used to interpret this result as normal/abnormal . ALYSSA (test code = ALYSSA) Biotin has been reported to cause a negative bias, interpret results relative to patient's use of biotin. Lab Interpretation Abnormal (test code = 14936-9) [facility] SouthPOMS GLUCOSE (AUTOMATED)2020-03-01 03:42:00 Test Item Value Reference Range Interpretation Comments POCT GLU (test code = 6621213783) 190 mg/dL 70-110 H Lab Interpretation (test code = Abnormal 99705-7) [facility] SouthTROPONIN [id number] 03:30:00 Test Item Value Reference Range Interpretation Comments TROPONIN I (test 0.098 ng/mL See_Comment H [Automated code = 0529634185) message] The system which generated this result [...] ? Lab Interpretation Abnormal (test code = 64692-6) [facility] SouthHEPATIC FUNCTION PANEL (39289) (ALB,T.PRO,BILI T,BU/BC,ALT,AST,ALK PHOS)2020-03-01 03:24:00 Test Item Value Reference Range Interpretation Comments TOTAL BILI (test code = 3396077234) 2.2 mg/dL 0.1-1.1 H BILI UNCON (test code = 5557668492) 2.0 mg/dL 0.1-1.1 H BILI CONJ (test code = 2008702130) 0.0 mg/dL 0-0.3 T PROTEIN (test code = 3821904920) 6.7 g/dL 6.3-8.2 ALBUMIN (test code = 6384808165) 4.0 g/dL 3.5-5 ALK PHOS (test code = 0470440141) 48 U/L 34-122 ALTv (test code = 1742-6) 18 U/L 5-50 AST(SGOT) (test code = 9999550555) 57 U/L 13-40 H Lab Interpretation (test code = Abnormal 11988-1) [facility] SouthPhosphorus [id number] 03:17:00 Test Item Value Reference Range Interpretation Comments PHOSPHORUS (test code = 3.1 mg/dL 2.5-5 Slig ht hemolysis 3411903445) Lab Interpretation (test Normal code = 08144-9) [facility] SouthPROTHROMBIN TIME / [id number] 03:08:00 Test Item Value Reference Range Interpretation Comments PROTIME PATIENT (test See_Comment [Auto mated message] code = 5964-2) The system [employer] generated this result transmitted ref erence range: 12.0 - 1 4.7 Seconds. The re ference range was not u sed to interpret this result as normal/abnor mal. INR (test code = 6301-6) Nor mal INR <1.1; Warfarin Therap eutic range 2.0 to 3. 0 or 2.5 to 3.5, dep ending upon the indica tions. Lab Interpretation (test Normal code = 37506-9) [facility] SouthCREATINE [id number] 03:01:00 Test Item Value Reference Range Interpretation Comments CK (test code = 3758014901) 68 U/L 33-194 Lab Interpretation (test code = Normal 27820-1) [facility]URIC [id number] 02:41:00 Test Item Value Reference Range Interpretation Comments URIC ACID (test code = 6051612605) 2.3 mg/dL 3.6-8 L Lab Interpretation (test code = Abnormal 85573-1) [facility] SouthTHYROID STIMULATING [id number] 02:26:00 Test Item Value Reference Range Interpretation Comments TSH (test code = See_Comment [Automated message] 2001763449) The system [employer] generated this result transmitted ref erence range: 0.45 - 4 .70 mIU/L. The refe rence range was not u sed to interpret this result as normal/abnor mal. Lab Interpretation (test Normal code = 14844-8) [facility] SouthN-TERMINAL [id number] 02:04:00 Test Item Value Reference Range Interpretation Comments NT-proBNP (test code 4390 pg/mL See_Comment H [Autom ated = 4503784079) message] The system which generated this result transmitted reference range : <=450. The reference range was not used to interpret this result as normal/abnormal . ALYSSA (test code = ALYSSA) Biotin has been reported to cause a negative bias, interpret results relative to patient's use of biotin. Lab Interpretation Abnormal (test code = 82928-5) [facility] SouthMAGNESIUM2020-04-16 02:01:00 Test Item Value Reference Range Interpretation Comments MAGNESIUM (test code = 1827032318) 1.5 mg/dL 1.7-2.4 L Lab Interpretation (test code = Abnormal 75617-5) [facility] SouthLIPASE2020-04-16 00:22:00 Test Item Value Reference Range Interpretation Comments LIPASE (test code = 6218673000) 68 U/L 0-220 Lab Interpretation (test code = Normal 96213-9) [facility] SouthCORONAVIRUS COVID-19 [id number] 23:42:00 Test Item Value Reference Range Interpretation Comments SARS-CoV-2 (test code = Not Detected Not Detected 33232-1) ALYSSA (test code = ALYSSA) ID NOW COVID-19 Assay is an isothermal nucleic acid amplification test intended for the qualitative detection of nucleic acid from SARS-CoV-2 viral RNA in nasopharyngeal (DIRECTOR OF SOCIAL MEDIA MARKETING) specimens. It is used under Emergency Use [...] indicated. Lab Interpretation Normal (test code = 81595-1) [facility]XR CHEST 1 VW [id number] 23:26:02 No acute intrathoracic abnormality, specifically no radiographic findingsto suggest COVID-19 pneumonia. Disclaimer: Generally, the findings on chest imaging in COVID-19 are notspecific, and overlap with other infections, including influenza, H1N1,SARS and MERS. According to the Centers for Disease Control (CDC) and recent statement ofthe [employer], viral testing remains the [...] stimulating device overlie the mid thoracic spine. [facility], Radiant ResultsInft User - 02/29/2020 [...] Disease Control (CDC) and recent statement ofthe [employer], viral testing remains the only specificmethod of diagnosis. Confirmation with the viral test is required, even ifradiologic findings are suggestive of COVID-[address] Preliminary Report Dictated by Resident: Radu Boo MD., have reviewed this study and agree with theabovereport.[facility] SouthWendy [id number] 22:59:00 Test Item Value Reference Range Interpretation Comments TROPONIN I (test 0.071 ng/mL See_Comment H [Automated code = 9433266810) message] The system which generated this result [...] ? Lab Interpretation Abnormal (test code = 69575-1) [facility] Metabolic Panel (NA, K, CL, CO2, GLUCOSE, BUN, CREATININE, CA)2020-02-29 22:48:00 Test Item Value Reference Range Interpretation Comments NA (test code = 141 mmol/L 135-145 4082891806) K (test code = 3.2 mmol/L 3.5-5 L 5823422156) CL (test code = 104 mmol/L 98-108 5190822834) CO2 TOTAL (test code = 25 mmol/L 23-31 9698304540) AGAP (test code = 2-16 4601472972) BUN (test code = 12 mg/dL 7-23 8488253249) GLUCOSE (test code = 250 mg/dL 70-110 H 8137773973) CREATININE (test code = 1.02 mg/dL 0.6-1.25 3866442899) CALCIUM (test code = 8.9 mg/dL 8.6-10.6 1595237037) eGFR Calculation mL/min/1.73m2 (Non-) (test code = 4842078429) eGFR Calculation mL/min/1.73m2 () (test code = 4813835296) ALYSSA (test code = ALYSSA) Association of [...] tests). Lab Interpretation Abnormal (test code = 19346-9) [facility] WITH [id number] 22:41:00 Test Item Value Reference Range Interpretation [...] RDW-SD (test code = 46.6 fL 38.5-51.6 86284-2) RDW-CV (test code = 14.6 % 12.1-15.4 788-0) PLT (test code = See_Comment [Automated 777-3) message] The sy stem which generated this result transmitted reference range : 150 - 328 10*3/ ?L. The reference r corey was not used to interpret this result as normal/abnormal . MPV (test code = 9.7 fL 9.8-13 L 49433-9) NRBC/100 WBC (test See_Comment [Automat ed code = 9137701611) message] The system which generated this result transmitted reference range : 0.0 - 10.0 /100 WBCs. The refer ence range was not u sed to interpret th is result as normal/abnormal . NRBC x10^3 (test code <0.01 See_Comment [Auto mated = 3248177103) message] The s ystem which generated this result transmitted reference range : 10*3/?L. The reference range was not used to interpret this result as normal/abnormal . GRAN MAT (NEUT) % 68.6 % (test code = 770-8) IMM GRAN % (test code 0.30 % = 3145133651) LYMPH % (test code = 18.6 % 736-9) MONO % (test code = 10.1 % 5905-5) EOS % (test code = 1.8 % 713-8) BASO % (test code = 0.6 % 706-2) GRAN MAT x10^3(ANC) 4.29 10*3/uL 1.99-6.95 (test code = 0443117149) IMM GRAN x10^3 (test <0.03 0-0.06 code = 6121442560) LYMPH x10^3 (test code 1.16 10*3/uL 1.09-3.23 = 731-0) MONO x10^3 (test code 0.63 10*3/uL 0.36-1.02 = 742-7) EOS x10^3 (test code = 0.11 10*3/uL 0.06-0.53 711-2) BASO x10^3 (test code 0.04 10*3/uL 0.01-0.09 = 704-7) Lab Interpretation Abnormal (test code = 75355-0) [facility] [id number] 22:38:00 Test Item Value Reference Range Interpretation Comments LACTIC ACID (test code = 1.88 mmol/L 0.3-2.6 7076563456) [facility]2020-01-17 18:18:00 Test Item Value Reference Range Interpretation Comments POCT GLU (test code = 3652825535) 290 mg/dL 70-110 H Lab Interpretation (test code = Abnormal 12983-0) [facility]TR[facility] [id number] 18:01:00 Test Item Value Reference Range Interpretation Comments TROPONIN I (test 0.065 ng/mL See_Comment H [Automated code = 0474139879) message] The system which generated this result [...] ? Lab Interpretation Abnormal (test code = 06318-1) [facility]aPTT2020-[facility] 17:10:00 Test Item Value Reference Range Interpretation Comments APTT Patient (test See_Comment H [Automat ed code = 3173-2) message] The system which generated this result transmitted reference range : 23 - 38 Seconds . The reference range was not used to interpr et this result as normal/abnormal . ALYSSA (test code = ALYSSA) The [facility] patient population mean normal value for aPTT is 30 seconds. Lab Interpretation Abnormal (test code = 44172-2) [facility]2020-01-17 11:59:00 Test Item Value Reference Range Interpretation Comments POCT GLU (test code = 4410727221) 185 mg/dL 70-110 H Lab Interpretation (test code = Abnormal 39697-4) [facility]TR[facility] [id number] 11:23:00 Test Item Value Reference Range Interpretation Comments TROPONIN I (test 0.073 ng/mL See_Comment H [Automated code = 5350660437) message] The system which generated this result [...] ? Lab Interpretation Abnormal (test code = 95055-6) [facility] (NA, K, CL, CO2, GLUCOSE, BUN, CREATININE, CA)2020-01-17 11:16:00 Test Item Value Reference Range Interpretation Comments NA (test code = 136 mmol/L 135-145 6065609800) K (test code = 3.3 mmol/L 3.5-5 L 0167350231) CL (test code = 101 mmol/L 98-108 3883913571) CO2 TOTAL (test code = 26 mmol/L 23-31 3560288814) AGAP (test code = 2-16 5894678023) BUN (test code = 19 mg/dL 7-23 2471053987) GLUCOSE (test code = 227 mg/dL 70-110 H 4330024223) CREATININE (test code = 1.33 mg/dL 0.6-1.25 H 3337888134) CALCIUM (test code = 9.1 mg/dL 8.6-10.6 4017372800) eGFR Calculation mL/min/1.73m2 (Non-) (test code = 6266683294) eGFR Calculation mL/min/1.73m2 () (test code = 3507326874) ALYSSA (test code = ALYSSA) Association of [...] tests). Lab Interpretation Abnormal (test code = 58477-7) [facility] 11:00:00 Test Item Value Reference Range Interpretation Comments APTT Patient (test See_Comment H [Automat ed code = 3173-2) message] The system which generated this result transmitted reference range : 23 - 38 Seconds . The reference range was not used to interpr et this result as normal/abnormal . ALYSSA (test code = ALYSSA) The [facility] patient population mean normal value for aPTT is 30 seconds. Lab Interpretation Abnormal (test code = 73755-6) [facility] SouthCBC WITH [id number] 10:43:00 Test Item Value Reference Range Interpretation Comments WBC (test code = See_Comment [Automated message] 6690-2) The system [employer] generated this result transmitted ref erence range: 4.20 - 1 0.70 10*3/?L. The re ference range was not u sed to interpret this result as normal/abnor mal. RBC (test code = See_Comment [Automated message] 139-8) The system [employer] generated this result transmitted ref erence range: [...] RDW-SD (test code 41.5 fL 38.5-51.6 = 09209-9) RDW-CV (test code 12.8 % 12.1-15.4 = 788-0) PLT (test code = See_Comment [Automated message] 817-3) The system [employer] generated this result transmitted ref erence range: 150 - 32 8 10*3/?L. The re ference range was not u sed to interpret this result as normal/abnor mal. MPV (test code = 10.7 fL 9.8-13 36168-9) NRBC/100 WBC (test See_Comment [Automat ed message] code = 6732688089) The syste m which generated this result transmitted ref erence range: 0.0 - 10 .0 /100 WBCs. The refer ence range was not u sed to interpret this result as normal/abnor mal. NRBC x10^3 (test <0.01 See_Comment [Automated message] code = 6357280465) The syste m which generated this result transmitted ref erence range: 10*3/?L. The reference range was not used to interpr et this result as normal/abnormal . GRAN MAT (NEUT) % 56.1 % (test code = 770-8) IMM GRAN % (test 0.30 % code = 6850551139) LYMPH % (test code 29.5 % = 736-9) MONO % (test code 9.9 % = 5905-5) EOS % (test code = 3.3 % 713-8) BASO % (test code 0.9 % = 706-2) GRAN MAT 3.73 10*3/uL 1.99-6.95 x10^3(ANC) (test code = 6949476919) IMM GRAN x10^3 <0.03 0-0.06 (test code = 6402518530) LYMPH x10^3 (test 1.96 10*3/uL 1.09-3.23 code = 731-0) MONO x10^3 (test 0.66 10*3/uL 0.36-1.02 code = 742-7) EOS x10^3 (test 0.22 10*3/uL 0.06-0.53 code = 711-2) BASO x10^3 (test 0.06 10*3/uL 0.01-0.09 code = 704-7) [facility] GLUCOSE (AUTOMATED)2020-01-17 01:49:00 Test Item Value Reference Range Interpretation Comments POCT GLU (test code = 0253708071) 305 mg/dL 70-110 H Lab Interpretation (test code = Abnormal 26579-5) [facility] GLUCOSE (AUTOMATED)2020-01-17 00:01:00 Test Item Value Reference Range Interpretation Comments POCT GLU (test code = 9732756838) 271 mg/dL 70-110 H Lab Interpretation (test code = Abnormal 71343-3) [facility] 22:23:00 Test Item Value Reference Range Interpretation Comments APTT Patient (test See_Comment H [Automat ed code = 3173-2) message] The system which generated this result transmitted reference range : 23 - 38 Seconds . The reference range was not used to interpr et this result as normal/abnormal . ALYSSA (test code = ALYSSA) The [facility] patient population mean normal value for aPTT is 30 seconds. Lab Interpretation Abnormal (test code = 11850-7) [facility]TR[facility]IN [id number] 21:22:00 Test Item Value Reference Range Interpretation Comments TROPONIN I (test 0.061 ng/mL See_Comment H [Automated code = 3817313190) message] The system which generated this result [...] ? Lab Interpretation Abnormal (test code = 32502-3) [facility]2020-01-16 17:37:00 Test Item Value Reference Range Interpretation Comments POCT GLU (test code = 2205165599) 271 mg/dL 70-110 H Lab Interpretation (test code = Abnormal 25182-2) [facility]aPTT2020-03-[facility] 12:47:00 Test Item Value Reference Range Interpretation Comments APTT Patient (test See_Comment HH [Automat ed code = 3173-2) message] The system which generated this result transmitted reference range : 23 - 38 Seconds . The reference range was not used to interpr et this result as normal/abnormal . ALYSSA (test code = ALYSSA) The [facility] patient population mean normal value for aPTT is 30 seconds. Lab Interpretation Abnormal (test code = 31097-4) [facility]TROP[facility]IN [id number] 12:35:00 Test Item Value Reference Range Interpretation Comments TROPONIN I (test 0.074 ng/mL See_Comment H [Automated code = 6020514546) message] The system which generated this result [...] ? Lab Interpretation Abnormal (test code = 53547-1) [facility] SouthLIPID PANEL (35123)(TOTAL CHOLESTEROL, TRIGLYCERIDES, HDL)2020-01-16 12:23:00 Test Item Value Reference Range Interpretation Comments CHOL (test code = 95 mg/dL 120-200 L 9267896451) HDL (test code = 44 mg/dL >40 9195827187) HDLC RATIO (test code = See_Comment [Au tomated message] 5180853208) The system Berry White generated this result transmitted ref erence range: <=5.0. T he reference range was not used to int erpret this result as normal/abnormal . TRIG (test code = 89 mg/dL 30-170 0199011893) LDL CHOL (test code = 33 mg/dL See_Comment [Auto mated message] 57908-2) The system Berry White generated this result transmitted ref erence range: <=160. T he reference range was not used to int erpret this result as normal/abnormal . VLDL (test code = 18 mg/dL 5-60 8582945172) Lab Interpretation (test Abnormal code = 81135-5) [facility] SouthGlycosylated Hemoglobin (A1C)2020-01-16 09:03:00 Test Item Value [...] Indicated Lab Interpretation Abnormal (test code = 16832-5) [facility] SouthCritical [id number] 05:48:18Charanjit Heck MD ? ? 01/15/2020 11:48 [...] review of old charts and examination of patientUnScenic [facility] CenterProthrombin Time (PT) / [id number] 05:28:00 Test Item Value Reference Range Interpretation [...] tions. Lab Interpretation (test Normal code = 09000-9) [facility]aPTT2020-03-02 05:27:00 Test Item Value Reference Range Interpretation Comments APTT Patient (test See_Comment [Automat ed code = 3173-2) message] The system which generated this result transmitted reference range : 23 - 38 Seconds . The reference range was not used to interpr et this result as normal/abnormal . ALYSSA (test code = ALYSSA) The [facility] patient population mean normal value for aPTT is 30 seconds. Lab Interpretation Normal (test code = 82144-0) [facility] SouthTroponin [id number] 05:11:00 Test Item Value Reference Range Interpretation Comments TROPONIN I (test 0.075 ng/mL See_Comment H [Automated code = 7537430947) message] The system which generated this result [...] ? Lab Interpretation Abnormal (test code = 81839-7) [facility] SouthN-TERMINAL [id number] 05:08:00 Test Item Value Reference Range Interpretation Comments NT-proBNP (test code 896 pg/mL See_Comment H [Autom ated = 8711464753) message] The system which generated this result transmitted reference range : <=450. The reference range was not used to interpret this result as normal/abnormal . ALYSSA (test code = ALYSSA) Biotin has been reported to cause a negative bias, interpret results relative to patient's use of biotin. Lab Interpretation Abnormal (test code = 05632-2) [facility] SouthBasi Metabolic Panel (NA, K, CL, CO2, GLUCOSE, BUN, CREATININE, CA)2020-01-16 04:59:00 Test Item Value Reference Range Interpretation Comments NA (test code = 136 mmol/L 135-145 9679634549) K (test code = 4.0 mmol/L 3.5-5 5831415258) CL (test code = 101 mmol/L 98-108 3451152803) CO2 TOTAL (test code = 27 mmol/L 23-31 8497200119) AGAP (test code = 2-16 2440801137) BUN (test code = 17 mg/dL 7-23 6564315040) GLUCOSE (test code = 445 mg/dL 70-110 H 0308015364) CREATININE (test code = 1.29 mg/dL 0.6-1.25 H 8351602929) CALCIUM (test code = 8.8 mg/dL 8.6-10.6 8627740790) eGFR Calculation mL/min/1.73m2 (Non-) (test code = 6172948605) eGFR Calculation mL/min/1.73m2 () (test code = 2745725209) ALYSSA (test code = ALYSSA) Association of [...] tests). Lab Interpretation Abnormal (test code = 01587-9) [facility] SouthHepatic Function Panel (ALB, T.PRO, BILI T, BU/BC, ALT, AST, ALK PHOS)2020-01-16 04:59:00 Test Item Value Reference Range Interpretation Comments TOTAL BILI (test code = 3939106536) 1.3 mg/dL 0.1-1.1 H BILI UNCON (test code = 4329357849) 1.1 mg/dL 0.1-1.1 BILI CONJ (test code = 3373566336) 0.0 mg/dL 0-0.3 T PROTEIN (test code = 4961569020) 6.3 g/dL 6.3-8.2 ALBUMIN (test code = 8050734603) 3.9 g/dL 3.5-5 ALK PHOS (test code = 6487119221) 67 U/L 34-122 ALTv (test code = 1742-6) 15 U/L 5-50 AST(SGOT) (test code = 2030488528) 23 U/L 13-40 Lab Interpretation (test code = Abnormal 65418-5) [facility] 1 [id number] 04:54:13Impression: Moderate cardiomegaly without acute pulmonary process. RL: 460 AFC: [id number] Indication: Chest pain Comparison: None available Findings: Single AP view of the chest. The cardiopericardial silhouette ismoderately enlarged. The lungs are clear bilaterally. The visualized bonythorax is intact. A thoracic neurostimulator device is in place. [facility], Radiant Results Inft User - 01/15/2020 10:55 PM CSTIndication: Chest painComparison: None availableFindings: Single AP view of the chest. The cardiopericardial silhouette ismoderately enlarged. The lungs are clear bilaterally. The visualized bonythorax is intact. A thoracic neurostimulator device is in place.IMPRESSIONImpression:Moderate cardiomegaly without acute pulmonary process.RL: 460AFC: 71069Idnsrdypljxkbk signed by Esperanza Rosado MD, PhD at 01/15/2020 10:54 PMUn[facility] WITH [id number] 04:51:00 Test Item Value Reference Range Interpretation [...] RDW-SD (test code = 40.7 fL 38.5-51.6 06628-9) RDW-CV (test code = 12.8 % 12.1-15.4 788-0) PLT (test code = See_Comment L [Automated 777-3) message] The sy stem which generated this result transmitted reference range : 150 - 328 10*3/ ?L. The reference r corey was not used to interpret this result as normal/abnormal . MPV (test code = 10.6 fL 9.8-13 54946-7) IPF % (test code = 2.8 % 1.2-10.7 Platelet count 4932194665) measured by fluorescence method. NRBC/100 WBC (test See_Comment [Automat ed code = 6670096719) message] The system which generated this result transmitted reference range : 0.0 - 10.0 /100 WBCs. The refer ence range was not u sed to interpret th is result as normal/abnormal . NRBC x10^3 (test code <0.01 See_Comment [Auto mated = 8937471782) message] The s ystem which generated this result transmitted reference range : 10*3/?L. The reference range was not used to interpret this result as normal/abnormal . GRAN MAT (NEUT) % 56.0 % (test code = 770-8) IMM GRAN % (test code 0.20 % = 4684547351) LYMPH % (test code = 30.5 % 736-9) MONO % (test code = 9.6 % 5905-5) EOS % (test code = 2.8 % 713-8) BASO % (test code = 0.9 % 706-2) GRAN MAT x10^3(ANC) 2.98 10*3/uL 1.99-6.95 (test code = 2998509842) IMM GRAN x10^3 (test <0.03 0-0.06 code = 2340886868) LYMPH x10^3 (test code 1.62 10*3/uL 1.09-3.23 = 731-0) MONO x10^3 (test code 0.51 10*3/uL 0.36-1.02 = 742-7) EOS x10^3 (test code = 0.15 10*3/uL 0.06-0.53 711-2) BASO x10^3 (test code 0.05 10*3/uL 0.01-0.09 = 704-7) Lab Interpretation Abnormal (test code = 89948-1) [facility]"
[2022-04-17] MEDS ORDERED: ONDANSETRON 4 MG/2 ML VIAL ONE (18:09)
[2022-04-17] MEDS ORDERED: MORPHINE 4 MG/ML SYR ONE (18:09)
[2022-04-17] MEDS ORDERED: FENTANYL CITR 100 MCG/2 ML ONE (19:02)
--- NOTE | 2022-04-17 19:37 | ER ---
Nurse's Notes [facility] Name: Demetrius Sarmiento Age: 81 yrs Sex: Male : 1940 Arrival Date: 04/17/2022 Time: 17:40 Bed 14 Private MD: Diagnosis: Lumbago with sciatica, left side Presentation: 04/17 17:30 Chief complaint: EMS states: Patient is here for the same reason he always comes for jg9 pain in his back radiating down into his legs. Patient drove himself to the [place] office but they were closed. Patient BP was running low so EMS gave 150 mL bolus, no meds given en route, BGL 290 mg/dL. Coronavirus screen: Vaccine status: Patient reports receiving the 2nd dose of the covid vaccine. Ebola Screen: Patient negative for fever greater than or equal to 101.5 degrees Fahrenheit, and additional compatible Ebola Virus Disease symptoms Patient denies exposure to infectious person. Patient denies travel to an Ebola-affected area in the 21 days before illness onset. Initial Sepsis Screen: Does the patient meet any 2 criteria? No. Patient's initial sepsis screen is negative. Does the patient have a suspected source of infection? No. Patient's initial sepsis screen is negative. Risk Assessment: Do you want to hurt yourself or someone else? Patient reports no desire to harm self or others. Onset of symptoms is unknown. 17:30 Method Of Arrival: [facility] 17:30 Acuity: LANCE 4 jg9 Triage Assessment: 17:30 General: Appears uncomfortable, Behavior is moaning/groaning in pain. Pain: Complains jg9 of pain in pelvis and left leg-left belt line down to the left leg Pain currently is 10 out of 10 on a pain scale. Pain began chronic. EENT: No deficits noted. Neuro: Level of Consciousness is awake, alert, obeys commands, Oriented to person, place, on medication for dementia. Cardiovascular: No deficits noted. Respiratory: No deficits noted. GI: No deficits noted. : No deficits noted. Derm: No deficits noted. Musculoskeletal: Circulation, motion, and sensation intact. Historical: - Allergies: 17:50 No Known Allergies; jg9 - PMHx: 17:50 diabetes mellitus; Hypercholesterolemia; Hypertensive disorder; [place]; sciatica; jg9 - Immunization history:: Adult Immunizations up to date. - Social history:: Smoking status: Patient denies any tobacco usage or history of. Screenin:53 Abuse screen: Denies threats or abuse. Denies injuries from another. Nutritional jg9 screening: No deficits noted. Tuberculosis screening: No symptoms or risk factors identified. Fall Risk None identified. Assessment: 18:06 Neuro: Level of Consciousness is awake, alert, Oriented to person, place. jg9 19:20 Reassessment: Assisted patient to stand at side of the bed to urinate. Patient vc1 screaming out in pain. Repositioned in bed. General: Appears uncomfortable, Behavior is inappropriate for age, restless. Pain: Complains of pain in back. Vital Signs: 17:30 BP 125 / 75; Pulse 92; Resp 24 S; Temp 98.4(O); Pulse Ox 100% on R/A; Weight 77.11 kg jg9 (R); Height 5 ft. 7 in. (170.18 cm) (R); Pain 10/10; 18:00 BP 119 / 88; Pulse 84; Resp 22 S; Pulse Ox 100% ; Pain 10/10; jg9 18:30 BP 111 / 66; Pulse 86; Resp 18; Pulse Ox 100% on R/A; Pain 7/10; jg9 17:30 Body Mass Index 26.63 (77.11 kg, 170.18 cm) jg9 ED Course: 17:40 Patient arrived in ED. j9 17:47 Halle Bower RN is Primary Nurse. j9 17:48 Cosmo Cordero PA is PHCP. [facility] 17:48 Michael Ortega MD is Attending Physician. [facility] 17:50 Triage completed. jg9 17:53 Arm band placed on right wrist. jg9 17:53 Patient has correct armband on for positive identification. Bed in low position. Call j9 light in reach. Side rails up X 1. 18:06 Maintain EMS IV. Dressing intact. Good blood return noted. Site clean \T\ dry. Gauge \T\ jg 9 site: 20 right ac. 19:30 Primary Nurse role handed off by Halle Bower, HERBIE mw2 20:17 Ana Maria Martínez, RN is Primary Nurse. vc1 20:17 No provider procedures requiring assistance completed. IV discontinued, intact, vc1 bleeding controlled, No redness/swelling at site. Pressure dressing applied. Administered Medications: 18:05 Drug: morphine 4 mg Route: IVP; Infused Over: 4 mins; Site: right antecubital; jg9 18:48 Follow up: Response: No adverse reaction; Pain is unchanged, physician notified jg9 18:05 Drug: Zofran (Ondansetron) 4 mg Route: IVP; Site: right antecubital; jg9 18:48 Follow up: Response: No adverse reaction jg9 18:59 Drug: fentaNYL (PF) 50 mcg {Note: RASS-0.} Route: IVP; Site: right antecubital; jg9 Medication: 17:53 VIS not applicable for this client. jg9 Outcome: 19:37 Discharge ordered by . rohit 20:17 Discharged to home via wheelchair. vc1 20:17 Condition: good 20:17 Discharge instructions given to patient, Instructed on discharge instructions, follow up and referral plans. Demonstrated understanding of instructions, follow-up care. 20:18 Patient left the ED. vc1 Signatures: Cosmo Cordero PA PA jmm [place], MyKena mw2 Halle Bower RN RN jg9 Ana Maria Martínez RN RN vc1
--- NOTE | 2022-04-17 19:37 | EDPHYS ---
Physician Documentation [facility] Name: Demetrius Sarmiento Age: 81 yrs Sex: Male : 1940 Arrival Date: 04/17/2022 Time: 17:40 Bed 14 Private MD: DEVIN Physician Michael Ortega HPI: 04/17 17:55 This 81 yrs old Male presents to ER via EMS with complaints of Back Pain - patient c/o jmm pain at the belt line on the left side radiating down to the left leg. 17:55 The patient presents with pain that is chronic. Onset: The symptoms/episode jmm began/occurred gradually, 2 month(s) ago. The pain radiates to the left leg. Associated signs and symptoms: Pertinent negatives: abdominal pain, chest pain, constipation, dysuria, fever, headache, hematuria, incontinence, nausea, numbness, tingling, vomiting, weakness. Modifying factors: The patient symptoms are alleviated by nothing, the patient symptoms are aggravated by any movement. The patient has experienced similar episodes in the past, chronically. Historical: - Allergies: 17:50 No Known Allergies; jg9 - PMHx: 17:50 diabetes mellitus; Hypercholesterolemia; Hypertensive disorder; [place]; sciatica; jg9 - Immunization history:: Adult Immunizations up to date. - Social history:: Smoking status: Patient denies any tobacco usage or history of. ROS: 17:55 Constitutional: Negative for fever, chills, and weight loss, Cardiovascular: Negative jmm for chest pain, palpitations, and edema, Respiratory: Negative for shortness of breath, cough, wheezing, and pleuritic chest pain. 17:55 Back: Positive for pain with movement. 17:55 All other systems are negative. Exam: 17:55 Constitutional: This is a well developed, well nourished patient who is awake, alert, jmm and in no acute distress. Head/Face: atraumatic. Eyes: EOMI, no conjunctival erythema appreciated ENT: Moist Mucus Membranes Neck: Trachea midline, Supple Chest/axilla: Normal chest wall appearance and motion. Cardiovascular: Regular rate and rhythm. No edema appreciated Respiratory: Normal respirations, no respiratory distress appreciated Abdomen/GI: Non distended, soft Back: Normal ROM Skin: General appearance color normal 17:55 Musculoskeletal/extremity: ROM: intact in all extremities. 17:55 Skin: Appearance: Color: normal in color. 17:55 Neuro: Extensor hallucis longus intact bilaterally. 17:55 Psych: Behavior/mood is pleasant, cooperative. Vital Signs: 17:30 BP 125 / 75; Pulse 92; Resp 24 S; Temp 98.4(O); Pulse Ox 100% on R/A; Weight 77.11 kg j9 (R); Height 5 ft. 7 in. (170.18 cm) (R); Pain 10/10; 18:00 BP 119 / 88; Pulse 84; Resp 22 S; Pulse Ox 100% ; Pain 10/10; jg9 18:30 BP 111 / 66; Pulse 86; Resp 18; Pulse Ox 100% on R/A; Pain 7/10; jg9 17:30 Body Mass Index 26.63 (77.11 kg, 170.18 cm) 9 MDM: 17:55 Patient medically screened. [facility] 19:34 Data reviewed: vital signs, nurses notes. Counseling: I had a detailed discussion with [facility] the patient and/or guardian regarding: the historical points, exam findings, and any diagnostic results supporting the discharge/admit diagnosis, the need for outpatient follow up, to return to the emergency department if symptoms worsen or persist or if there are any questions or concerns that arise at home. ED course: Pain is consistent with chronic pain. I do not currently suspect abscess, cauda equina, cord compression. Patient will follow up with pain management for further evaluation. Patient understood and agrees with the plan of care. . 04/17 18:01 Order name: Saline Lock; Complete Time: 18:06 [facility] Administered Medications: 18:05 Drug: morphine 4 mg Route: IVP; Infused Over: 4 mins; Site: right antecubital; jg9 18:48 Follow up: Response: No adverse reaction; Pain is unchanged, physician notified 9 18:05 Drug: Zofran (Ondansetron) 4 mg Route: IVP; Site: right antecubital; jg9 18:48 Follow up: Response: No adverse reaction 9 18:59 Drug: fentaNYL (PF) 50 mcg {Note: RASS-0.} Route: IVP; Site: right antecubital; jg9 Disposition Summary: 04/17/22 19:37 Discharge Ordered Location: Home [facility] Condition: Stable jmm Diagnosis - Lumbago with sciatica, left side jmm Followup: [facility] - With: Private Physician - When: 2 - 3 days - Reason: Recheck today's complaints, Continuance of care, Re-evaluation by your physician Discharge Instructions: - Discharge Summary Sheet jmm - Sciatica jmm Forms: - Medication Reconciliation Form jm - Thank You Letter jm - Antibiotic Education solomon - Prescription Opioid Use solomon Signatures: Michael Ortega MD MD cha Mickail, Joel, PA PA jmm Gilmore, Jennifer, RN RN jg9
[2022-04-17 20:29] VITALS: O2SAT 100
[2022-04-17 20:31] VITALS: BP 111/66
== END 2022-04-17 20:18 | disposition home or self-care (01) ==
LOC: ER 17:36
DX: M54.42 Lumbago with sciatica, left side (principal); E11.9 Type 2 diabetes mellitus without complications; I10 Essential (primary) hypertension
CPT/HCPCS: 96375; 96374; 99283; J3010; J2405

== ENCOUNTER 2022-04-18 22:01 | Emergency (ER) | payer OTHER ==
--- OUTSIDE RECORDS SUMMARY | 2022-04-18 22:16 | XMS REPORT | Continuity of Care Document ---
:1940 Author Organization [facility] t Address [address] [place] [address] Care Team Providers Name Role Phone Andres Briscoe DO Primary Care Physician Denny Attending Clinician Unavailable Lester Attending Clinician Unavailable RAJINDER, S Attending Clinician Unavailable Rajinder WEISS, S Attending Clinician DANIELLE MURGUIA Attending Clinician [...] Policy Number Effective Date Expiration Date Stacy EUGENE [id number] 2020 00:00:00 [facility] [id number] 2019 DUAL COMPLETE HMO 00:00:00 MEDICAID OF [place] [id number] 2018 00:00:00 Problems Condition Condition Condition Status Onset Resolution Last Treating Co mments Source Name Details Category Date Date Treatment Clinician Date Unstable Unstable Disease Active 2020-0 Unive rs angina angina 5-07 ity of 00:00: [place] 00 Medical Branch ALBA (acute ALBA (acute Disease Active 2020-0 U nivers kidney kidney 4-21 ity of injury) injury) 00:00: [place] 00 Medical Branch Chest pain Chest pain Disease Active 2020-0 U nivers 4-21 ity of 00:00: [place] [facility] Chest pain Chest pain Disease Active 2020-0 U 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 4-15 it y of 00:00: [place] 00 Medical Branch 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 3-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 00:00: [place] and and 00 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 2019- U nivers lobe lobe 1-06 ity of pneumonia pneumonia 00:00: [facility] 00 Medical Branch PNA PNA Disease Active 2019- Univers (pneumonia (pneumonia 0-25 it y of ) ) 00:00: [place] 00 Medical Branch Acute on Acute on Disease Active 2019- Unive rs chronic chronic 0-25 ity of combined combined 00:00: [place] systolic systolic 00 Medica l and and Branch 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 Dyspnea Dyspnea Disease Active 2019- Univers 0-23 ity of 00:00: [place] 00 Medical Branch CHF CHF Disease Active 2019- Univers exacerbati exacerbati 2-17 it y of on on 00:00: [place] 00 Medical Branch Essential Essential Disease Active 2019- Uni vers hypertensi hypertensi 2-17 it y of on on 00:00: [place] 00 Medical Branch Type 2 Type 2 [...] 1-27 it y of level level 00:00: 00 Medical Branch DE LA CRUZ DE LA CRUZ Disease Active Univers (dyspnea (dyspnea 1-27 ity of on on 00:00: [place] exertion) exertion) 00 Medi birdie Branch Coronary Coronary Disease Active Unive rs artery artery 1-27 ity of disease disease 00:00: [place] involving involving 00 Medi birdie curyung curyung Branch 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 sity of use smokeless [facility] tobacco [place] Exposure to 2022-04-06 2022-04-16 Not sure University of SARS-CoV-2 (event) 00:00:00 22:24:00 [facility] Alcohol intake 2022-03-01 2022-03-01 Current University of 00:00:00 00:00:00 non-drinker of [facility] alcohol [place] (finding) Cigarettes smoked 2018-12-11 2018-12-11 Univers ity of current (pack per 00:00:00 00:00:00 [facility] ) - Reported Branch Cigarette 2018-12-11 2018-12-11 University of pack-years 00:00:00 00:00:00 [facility] Tobacco use and 2018-12-11 2018-12-11 Former user Universi ty of exposure 00:00:00 00:00:00 [facility] Sex Ass[birth year] At [birth year] Universit y of 00:00:00 00:00:00 [facility] Smoking Status Start Date Stop Date Source Former smoker 2018-12-11 00:00:00 2018-12-11 00:00:00 [facility] Medications Ordered Filled Start Stop Current Ordering Indication Dosage Frequency Signature Comments Components Source Medication Medication Date Date Medication? Clinician (SIG) Name Name FENTanyl PF No 25ug 25 mcg, Un mel (SUBLIMAZE 03-01 04-16 Intramuscu it y of (PF)) 16:45: 16:23 lar, ONCE, [place] injection 00 :00 1 dose, On Medi birdie 25 mcg [facility] 03/01/22 at 1145, Routine cyclobenzap No 10mg 10 mg, Uni vers rine 03-01 04-16 Oral, ity of (FLEXERIL) 14:00: 12:59 ONCE, 1 [place] tablet 10 00 :00 dose, On Medica l mg [facility] Branch 03/01/22 at 0900, Routine HYDROcodone 2021- No 1{tbl} 1 tablet, Univers -acetaminop 03-01 Oral, ity of hen (NORCO 14:00: 12:59 ONCE, 1 [place] 5) 5-325 mg 00 :00 dose, On Medi birdie tablet 1 Sat Branch tablet 03/01/22 at 0900, ADAMA dexamethaso 2021- No 10mg 10 mg, Uni vers ne sod phos 03-01 Oral, ity of PF 14:00: 13:00 ONCE, 1 [place] injection 00 :00 dose, On Medica l 10 mg Sat Branch 03/01/22 at 0900, 1 mL cyclobenzap Yes [id number] 10mg Take 1 Univers rine 10 mg 4-16 tablet by ity of tablet 00:00: mouth 3 [place] 00 (three) Medical times Branch daily as needed for Muscle Spasms. cyclobenzap Yes [id number] 10mg Take 1 Univers rine 10 mg 4-16 tablet by ity of tablet 00:00: mouth 3 [place] 00 (three) Medical times Branch daily as needed for Muscle Spasms. aspirin 81 2020-11- No [id number] 81mg Take 1 Univers mg chewable 2-04 12- tablet by it y of tablet 00:00: 05:59 mouth [place] 00 :00 daily for Medical 30 days. Branch clopidogreL 2020-11- No [id number] 75mg Take 1 Univers 75 mg 2-04 12- tablet by ity of tablet 00:00: 05:59 mouth [place] 00 :00 daily for Medical 30 days. Branch furosemide 2020-11- No [id number] 20mg Take 1 Univers 20 mg 2-04 12- tablet by ity of tablet 00:00: 05:59 mouth [place] 00 :00 daily for Medical 30 days. Branch aspirin 81 2020-11- No [id number] 81mg Take 1 Univers mg chewable 2-04 12- tablet by it y of tablet 00:00: 05:59 mouth [place] 00 :00 daily for Medical 30 days. Branch clopidogreL 2020-11- No [id number] 75mg Take 1 Univers 75 mg 2-19 - tablet by ity of tablet 00:00: 05:59 mouth [place] 00 :00 daily for Medical 30 days. Branch furosemide 2020-11- No [id number] 20mg Take 1 Univers 20 mg 01-04 tablet by ity of tablet 00:00: 05:59 mouth [place] 00 :00 daily for Medical 30 days. Branch aspirin 81 2020-11- No [id number] 81mg Take 1 Univers mg chewable 01-04 tablet by it y of tablet 00:00: 05:59 mouth [place] 00 :00 daily for Medical 30 days. Branch clopidogreL 2020-11- No [id number] 75mg Take 1 Univers 75 mg 01-04 tablet by ity of tablet 00:00: 05:59 mouth [place] 00 :00 daily for Medical 30 days. Branch furosemide 2020-11- No [id number] 20mg Take 1 Univers 20 mg 01-04 [...] 2-18 by mouth ity of 18:25: at [place] 21 bedtime. Medical Branch atorvastati 2020-11 Yes 40mg Take 40 mg Univers n 40 mg 2-18 by mouth ity of tablet 18:25: at [place] 21 bedtime. Medical Branch trazodone 2020-11 Yes [...] 2-18 by mouth ity of 18:25: at [place] 21 bedtime. Medical Branch atorvastati 2020-11 Yes 40mg Take 40 mg Univers n 40 mg 2-18 by mouth ity of tablet 18:25: at [place] 21 bedtime. Medical Branch trazodone 2020-11 Yes [...] 2-18 by mouth ity of 18:25: at [place] [address] bedtime. Medical Branch atorvastati 2020-11 Yes 40mg Take 40 mg Univers n 40 mg 2-18 by mouth ity of tablet 18:25: at [place] 21 bedtime. Medical Branch metoprolol 2020-11 Yes [...] Until Discontinu ed, Routine QUEtiapine 2020-11 Yes [id number] 25mg Take 1 Univers 25 mg 2-18 tablet by ity of tablet 00:00: mouth at [place] [address] bedtime as Medical needed Branch (agitation /insomnia) . QUEtiapine 2020-11 Yes [id number] 25mg Take 1 Univers 25 mg 2-18 tablet by ity of tablet 00:00: mouth at [place] 00 bedtime as Medical needed Branch (agitation /insomnia) . QUEtiapine 2020-11 Yes [id number] 25mg Take 1 Univers 25 mg 2-18 tablet by ity of tablet 00:00: mouth at [place] 00 bedtime as Medical needed Branch (agitation /insomnia) . QUEtiapine 2020-11 Yes [id number] 25mg Take 1 Univers 25 mg 2-18 tablet by ity of tablet 00:00: mouth at [place] 00 bedtime as Medical needed Branch (agitation /insomnia) . QUEtiapine 2020-11 Yes [id number] 25mg Take 1 Univers 25 mg 2-18 tablet by ity of tablet 00:00: mouth at [place] 00 bedtime as Medical needed Branch (agitation /insomnia) . isosorbide 2020-11- No [id number] 60mg Take 1 Univers mononitrate 2-18 -18 tablet by it y of 60 mg 24 hr 00:00: 05:59 mouth 2 [place] tablet 00 :00 (two) Medical times Branch daily for 30 days. metoprolol 2020-11- No [id number] 37.5mg Take 1.5 Univers succinate 2-18 -18 tablets by ity of XL 25 mg 24 00:00: 05:59 mouth 2 [place] hr tablet 00 :00 (two) Medical times Branch daily for 30 days. isosorbide 2020-11- No [id number] 60mg Take 1 Univers mononitrate 2-18 -18 tablet by it y of 60 mg 24 hr 00:00: 05:59 mouth 2 [place] tablet 00 :00 (two) Medical times Branch daily for 30 days. metoprolol 2020-11 No [id number] 37.5mg Take 1.5 Univers succinate 2-18 -18 tablets by ity of XL 25 mg 24 00:00: 05:59 mouth 2 [place] hr tablet 00 :00 (two) Medical times Branch daily for 30 days. isosorbide 2020-11 No [id number] 60mg Take 1 Univers mononitrate 2-18 -18 tablet by it y of 60 mg 24 hr 00:00: 05:59 mouth 2 [place] tablet 00 :00 (two) Medical times Branch daily for 30 days. metoprolol 2020-11 No [id number] 37.5mg Take 1.5 Univers succinate 2-18 12-03 tablets by ity of XL 25 mg [...] 25mg 25 mg, Univ ers succinate 2-17 18 Oral, BID, ity of XL (TOPROL 14:30: [...] First dose [place] 00 on [facility] Medical 10/31/21 Branch at 2100, Until Discontinu ed, Routine atorvastati 2020-11 Yes 40mg 40 mg, Univ ers n (LIPITOR) 2-17 Oral, QHS, it y of tablet 40 03:00: First dose [place] mg 00 on [facility] Medical 10/31/21 Branch at 2100, Until Discontinu ed, Routine clopidogreL 2020-11 Yes 75mg 75 mg, Univ ers (PLAVIX) 2-16 Oral, ity of tablet 75 23:30: DAILY, [place] mg 00 First dose Medical on [facility] Branch 10/31/21 at 1730, Until Discontinu ed, Routine sulfur 2020-11- No [id number] 5mL 5 mL, Unive rs hexafluorid -31 10- Intravenou i ty of e microsphr 17:00: 17:00 s, ONCE, 1 [place] (LUMASON) 00 :00 dose, On Medica l injection 5 Madhavi Branch mL 10/31/21 at 1100, Routine
guardian family member approving Restricted medication : HOARITUBRANDEN isosorbide 2020-11- No 120mg 120 mg, Un mel mononitrate 01-01 Oral, ity of (IMDUR) 24 15:00: 14:16 DAILY, [place] hr tablet 00 :38 First dose Medi birdie 120 mg on [facility] Branch 10/31/21 at 0900, Until Discontinu ed, Routine Sliding 2020-11 Yes Subcutaneo [place] [facility] ers Scale 2-16 us, AC+HS, ity of Insulin-Reg 13:30: First dose [place] ular + Fsbg 00 on [facility] Medica l Testing 10/31/21 Branch at 0730, Until Discontinu ed, Routine enoxaparin 2020-11- No 1mg/kg 80 mg Uni vers (LOVENOX) 01-01 (rounded ity o f injection 09:00: 14:17 from 78 mg [place] 80 mg 00 :35 = 1 mg/kg Medical ?78 kg), Branch Subcutaneo us, Q24H, First dose on [facility] 10/31/21 at 0300, Until Discontinu ed, Routine aspirin 2020-11 No 325mg 325 mg, Unive rs tablet 325 -16 12-16 Oral, ity of mg 08:45: 08:15 ONCE, 1 [place] 00 :00 dose, On Medical Madhavi Branch [...] IV Push, ity of mg 07:36: 05:31 [facility], [place] 09 :07 Starting Medical on Madhavi Branch [...] IV Push, ity of (PF)) 05:32: Q6HPRN, [place] injection 4 10 Starting Medi birdie mg on Wed Branch 10/30/21 at 2332, Until Discontinu ed, Routine, Nausea and Vomiting (N/V) acetaminoph 2020-11 Yes 650mg 650 mg, Un mel en 2-16 Oral, ity of (TYLENOL) 05:31: Q6HPRN, [place] tablet 650 56 Starting Medic al mg on Thu Branch 10/30/21 at 2331, Until Discontinu ed, Routine, Pain (scale 1-3) acetaminoph 2020-11 Yes [id number] 1{tbl} 1 tablet, Univers en-codeine 2-16 Oral, ity of (TYLENOL 05:29: Q6HPRN, [place] #3) 300-30 29 Starting Medic al mg tablet 1 on Thu Branch tablet 10/30/21 at 2329, Until Discontinu ed, Routine, Pain (scale 4-6), Pain (scale 7-10) sodium 2020-11 Yes 5mL 5 mL, Univers chloride 2-16 Intravenou ity o f (NS) 01:21: s, PRN, [place] injection 5 02 Starting Medi birdie mL on Thu Branch 10/30/21 at 1921, Until Discontinu ed, Routine, IV line flushing morpHINE 2020- No 4mg 4 mg, Slow Un mel injection 4 04-25-10 IV Push, ity of mg 23:15: 22:23 ONCE, 1 [place] 00 :00 dose, Madhavi Medical 04/25/21 at Branch 1815, STAT acetaminoph 2020-2020- No 1{tbl} 1 tablet, Univers en-codeine 6-08 21-10 Oral, ity of (TYLENOL 19:00: 17:52 ONCE, 1 [place] #3) 300-30 00 :00 dose, Madhavi Medi birdie mg tablet 1 04/25/21 at Br anch tablet 1400, ADAMA cyclobenzap 2020- No 10mg 10 mg, Uni vers rine 6- 06-10 Oral, ONCE ity of (FLEXERIL) 19:00: 17:52 NOW, 1 [place] tablet 10 00 :00 dose, Madhavi Medic al mg 04/25/21 at Branch 1400, ADAMA cyclobenzap Yes [id number] 5mg Take 1 Univers rine 5 mg 6-10 tablet by ity o f tablet 00:00: mouth 3 [place] 00 (three) Medical times [place] daily. cyclobenzap Yes [id number] 5mg Take 1 Univers rine 5 mg 6-10 tablet by ity o f tablet 00:00: mouth 3 [place] 00 (three) Medical times Branch daily. cyclobenzap Yes [id number] 5mg Take 1 Univers rine 5 mg [...] left sided low back pain cyclobenzap Yes [id number] 5mg Take 1 Univers rine 5 mg [...] left sided low back pain cyclobenzap Yes [id number] 5mg Take 1 Univers rine 5 mg 6-10 tablet by ity o f tablet 00:00: mouth 3 [place] 00 (three) Medical times Branch daily. cyclobenzap 2021- No [id number] 5mg Take 1 Univers rine 5 mg [...] pain, left sided low back pain acetaminoph 2019- Yes [id number] 1{tbl} Take 1 Un mel [...] Yes 30U 30 Units, Unive rs glargine -09 Subcutaneo ity o f (LANTUS 14:00: us, DAILY, [place] U-100) 00 First dose Medical injection on Sat Branch 30 Units 03/24/20 at 0900, Until Discontinu ed clopidogreL 2020-0 Yes 75mg 75 mg, Univ ers (PLAVIX) 5-09 Oral, ity of tablet 75 14:00: DAILY, [place] mg 00 First dose Medical on [facility] 03/24/20 at 0900, Until Discontinu ed, Routine insulin 2020-0 Yes 30U 30 Units, Unive rs glargine - Subcutaneo ity o f (LANTUS 14:00: us, DAILY, [place] U-100) 00 First dose Medical injection on [facility] Branch 30 Units 03/24/20 at 0900, Until Discontinu ed clopidogreL 2020-0 Yes 75mg 75 mg, Univ ers (PLAVIX) - Oral, ity of tablet 75 14:00: DAILY, [place] mg 00 First dose Medical on [facility] 03/24/20 at 0900, Until Discontinu ed, Routine MULTIVITAMI 2020-0 2020- No Take by U nivers N ORAL 5- 05-08 mouth. ity of 03:38: 00:00 [place] 54 :00 [facility] MULTIVITAMI 2020-0 Yes Take by Un mel N ORAL 5- mouth. ity of 02:01: [place] 35 [facility] atorvastati 2020-0 Yes 40mg 40 mg, Univ ers n (LIPITOR) 5-09 Oral, QHS, it y of tablet 40 02:00: First dose [place] mg 00 on Thu [facility] 03/23/20 at Branch 2100, Until Discontinu ed, Routine atorvastati 2020-0 Yes 40mg 40 mg, Univ ers n (LIPITOR) 5-09 Oral, QHS, it y of tablet 40 02:00: First dose [place] mg 00 on Thu [facility] 03/23/20 at Branch 2100, Until Discontinu ed, Routine aspirin 81 2020-0 Yes [id number] 81mg Take 1 U nivers mg chewable 5- tablet by ity of tablet 00:00: mouth 00 daily with Medical breakfast. Branch furosemide 2020-0 Yes [id number] 20mg Take 1 U nivers 20 mg 5- tablet by ity of tablet 00:00: mouth [place] 00 daily. Medical Branch aspirin 81 2020-0 Yes [id number] 81mg Take 1 U nivers mg chewable 5-09 tablet by ity of tablet 00:00: mouth [place] 00 daily with Medical breakfast. Branch furosemide 2020-0 Yes [id number] 20mg Take 1 U nivers 20 mg 5-09 tablet by ity of tablet 00:00: mouth [place] 00 daily. Medical Branch aspirin 81 2020-0 Yes [id number] 81mg Take 1 U nivers mg chewable 5-09 tablet by ity of tablet 00:00: mouth [place] 00 daily with Medical breakfast. Branch furosemide 2020-0 Yes [id number] 20mg Take 1 U nivers 20 mg 5-09 tablet by ity of tablet 00:00: mouth [place] 00 daily. Medical Branch aspirin 81 2020-0 Yes [id number] 81mg Take 1 U nivers mg chewable 5-09 tablet by ity of tablet 00:00: mouth [place] 00 daily with Medical breakfast. Branch furosemide 2020-0 Yes [id number] 20mg Take 1 U nivers 20 mg 5-09 tablet by ity of tablet 00:00: mouth [place] 00 daily. Medical Branch aspirin 81 2020-0 Yes [id number] 81mg Take 1 U nivers mg chewable 5-09 tablet by ity of tablet 00:00: mouth [place] 00 daily with Medical breakfast. Branch furosemide 2020-0 Yes [id number] 20mg Take 1 U nivers 20 mg 5-09 tablet by ity of tablet 00:00: mouth [place] 00 daily. Medical Branch aspirin 81 2020-0 Yes [id number] 81mg Take 1 U nivers mg chewable 5-09 tablet by ity of tablet 00:00: mouth [place] 00 daily with Medical breakfast. Branch furosemide 2020-0 Yes [id number] 20mg Take 1 U nivers 20 mg 5-09 tablet by ity of tablet 00:00: mouth [place] 00 daily. Medical Branch aspirin 81 2020-0 Yes [id number] 81mg Take 1 U nivers mg chewable 5-09 tablet by ity of tablet 00:00: mouth [place] 00 daily with Medical breakfast. Branch furosemide 2020-0 Yes [id number] 20mg Take 1 U nivers 20 mg 5-09 tablet by ity of tablet 00:00: mouth [place] 00 daily. Medical Branch aspirin 81 2020-0 Yes [id number] 81mg Take 1 U nivers mg chewable 5-09 tablet by ity of tablet 00:00: mouth [place] 00 daily with Medical breakfast. Branch furosemide 2020-0 Yes [id number] 20mg Take 1 U nivers 20 mg 5-09 tablet by ity of tablet 00:00: mouth [place] 00 daily. Medical Branch aspirin 81 2020-0 Yes [id number] 81mg Take 1 U nivers mg chewable 5-09 tablet by ity of tablet 00:00: mouth [place] 00 daily with Medical breakfast. Branch furosemide 2020-0 Yes [id number] 20mg Take 1 U nivers 20 mg 5-09 tablet by ity of tablet 00:00: mouth [place] 00 daily. Medical Branch aspirin 81 2020-0 2021- No [id number] 81mg Take 1 Univers mg chewable 5-07 28-18 tablet by it y of tablet 00:00: 00:00 mouth [place] 00 :00 daily with Medical breakfast. Branch furosemide 2020-0 2021- No [id number] 20mg Take 1 Univers 20 mg 5-07 28-18 tablet by ity of tablet 00:00: 00:00 mouth [place] 00 :00 daily. Medical Branch isosorbide 2020-0 2020- No [id number] 90mg Take 3 Univers mononitrate 03-24-08 tablets by i ty of 30 mg 24 hr 00:00: 00:00 mouth [place] tablet 00 :00 daily. Medical Branch isosorbide 2020-0 2020- No [id number] 90mg Take 3 Univers mononitrate -07 21-08 tablets by i ty of 30 mg 24 hr 00:00: 00:00 mouth [place] tablet 00 :00 daily. Medical Branch maalox/lido 2020-0 2020- No 5mL 5 mL, [facility] sydni 2 03-23 05-08 Oral, ity of %viscous 20:45: 20:56 ONCE, 1 [place] 1:1 00 :00 dose, Fri Medical suspension 03/23/20 at [facility] (COMPOUNDED 1545, ) Routine maalox/lido 2020-0 2020- No 5mL 5 mL, [facility] sydni 2 - 05-08 Oral, ity of %viscous 20:45: 20:56 ONCE, 1 [place] 1:1 00 :00 dose, Fri Medical suspension 03/23/20 at [facility] (COMPOUNDED 1545, ) Routine acetaminoph 2020-0 [...] Yes 1000mg 1,000 mg, Univers (RANEXA) 12 03-23 Oral, ity of hr tablet 13:00: Q12H, [...] IV Push, ity of mg 07:59: Q4HPRN, [place] [address] Starting Medical 03/23/20 Branch at 0259, Until Discontinu ed, Routine, Chest pain morpHINE 2020-0 Yes 2mg 2 mg, Slow Uni vers injection 2 03-23 IV Push, ity of mg 07:59: Q4HPRN, [place] 14 Starting Medical 03/23/20 Branch at 0259, Until Discontinu ed, Routine, Chest pain magnesium 2020-0 2020- No 2g 2 g, IV Univ ers sulfate in 03-23 Piggyback, it y of water 2 07:45: 07:49 ONCE, 1 [place] gram/50 mL 00 :00 dose, Fri Medi birdie (4 %) 03/23/20 at [place] infusion 2 0245, g Routine KCL 2019-0 2020- No 40meq 40 mEq, Univers (KLOR-CON 03-23-08 Oral, ity of M20) tablet 07:45: 07:27 ONCE, 1 [place] 40 mEq 00 :00 dose, Fri Medical 03/23/20 at Branch 0245, Routine magnesium 2020-0 2020- No 2g 2 g, IV Univ ers sulfate in 03-23-08 Piggyback, it y of water 2 07:45: [...] mouth. ity of Vitamin D3, 04:01: 00:00 [place] 2,000 unit 03 :00 Medical capsule Branch thiamine 2019-0 2020- No 100mg Take 100 Uni vers (VITAMIN 03-23-07 mg by ity of B-1) 100 mg 04:01: 00:00 mouth [place] tablet 03 :00 daily. Medical Branch NaCl 0.9% 0 2020- No 10mL Inject 10 Un mel (NS) Soln 03-23- mL ity of 10 mL with 04:01: 00:00 intravenou [place] sodium 03 :00 sly once Medical chloride now. Branch 2.5 mEq/mL SolP 17.125 mEq acetaminoph 2020-0 Yes 650mg 650 mg, Un mel en 5-08 Oral, ity of (TYLENOL) 02:51: Q6HPRN, [place] tablet 650 29 Starting Medic al mg Madhavi 03/22/20 Branch at 2151, Until Discontinu ed, Routine, Pain (scale 1-3) acetaminoph 2020-0 Yes 650mg 650 mg, Un mel en 08 Oral, ity of (TYLENOL) 02:51: Q6HPRN, [place] tablet 650 29 Starting Medic al mg [...] 0.4 doses, Branch mg Starting [facility] 03/22/20 at 2138, Until Discontinu ed, ADAMA, Chest pain aspirin 2020-0 2020- No 324mg 324 mg, Unive rs chewable 5-08 05-08 Oral, ity of tablet 324 02:37: 02:51 ONCE, 1 [place] mg 00 :00 dose, [facility] 03/22/20 at Branch 2145, ADAMA aspirin 2020-0 2020- No 324mg 324 mg, Unive rs chewable 08 05-08 Oral, ity of tablet 324 02:37: 02:51 ONCE, 1 [place] mg 00 :00 dose, [facility] 03/22/20 at Branch 2145, ADAMA isosorbide 2020-0 Yes [id number] 90mg Take 1.5 Univers mononitrate 5-08 tablets by it y of 60 mg 24 hr 00:00: mouth [place] tablet 00 daily. [facility] isosorbide 2020-0 Yes [id number] 90mg Take 1.5 Univers mononitrate 5-08 tablets by it y of 60 mg 24 hr 00:00: mouth [place] tablet 00 daily. [facility] isosorbide 2020-0 Yes [id number] 90mg Take 1.5 Univers mononitrate 5-08 tablets by it y of 60 mg 24 hr 00:00: mouth [place] tablet 00 daily. [facility] isosorbide 2020-0 Yes [id number] 90mg Take 1.5 Univers mononitrate 5-08 tablets by it y of 60 mg 24 hr 00:00: mouth [place] tablet 00 daily. [facility] isosorbide 2020-0 Yes [id number] 90mg Take 1.5 Univers mononitrate 5-08 tablets by it y of 60 mg 24 hr 00:00: mouth [place] tablet 00 daily. [facility] isosorbide 2020-0 Yes [id number] 90mg Take 1.5 Univers mononitrate 5-08 tablets by it y of 60 mg 24 hr 00:00: mouth [place] tablet 00 daily. [facility] isosorbide 2020-0 Yes [id number] 90mg Take 1.5 Univers mononitrate 5-08 tablets by it y of 60 mg 24 hr 00:00: mouth [place] tablet 00 daily. [facility] isosorbide 2020-0 Yes [id number] 90mg Take 1.5 Univers mononitrate 5-08 tablets by it y of 60 mg 24 hr 00:00: mouth [place] tablet 00 daily. Medical Branch isosorbide 2020-0 Yes [id number] 90mg Take 1.5 Univers mononitrate 5-08 tablets by it y of 60 mg 24 hr 00:00: mouth [place] tablet 00 daily. Medical Branch isosorbide 2019-0 2021- No [id number] 90mg Take 1.5 Univers mononitrate 5-08 12-18 tablets by i ty of 60 mg 24 hr 00:00: 00:00 mouth [place] tablet 00 :00 daily. Medical Branch acetaminoph 2019-0 2020- No [id number] 975mg Take 3 Univers en 325 mg 5-08 05-19 tablets by ity of tablet 00:00: 04:59 mouth [place] 00 :00 every 8 Medical (eight) Branch hours for 10 days. acetaminoph 2020- No [id number] 975mg Take 3 Univers en 325 mg 5-08 05-19 tablets by ity of tablet 00:00: 04:59 mouth [place] 00 :00 every 8 Medical (eight) Branch hours for 10 days. acetaminoph 2020- No [id number] 975mg Take 3 Univers en 325 mg 5-08 05-19 tablets by ity of tablet 00:00: 04:59 mouth [place] 00 :00 every 8 Medical (eight) Branch hours for 10 days. acetaminoph 2020- No [id number] 975mg Take 3 Univers en 325 mg 5-08 05-19 tablets by ity of tablet 00:00: 04:59 mouth [place] 00 :00 every 8 Medical (eight) Branch hours for 10 days. acetaminoph 2020- No [id number] 975mg Take 3 Univers en 325 mg 5-08 05-19 tablets by ity of tablet 00:00: 04:59 mouth [place] 00 :00 every 8 Medical (eight) Branch hours for 10 days. lidocaine 5 2020- No [id number] 1{patch Apply 1 [facility] % (700 5 05-09 } Patch to ity of mg/patch) 00:00: 04:59 area[place] patch 00 :00 once now Medical for 1 Branch dose. lidocaine 5 2020- No [id number] 1{patch Apply 1 [facility] % (700 5-08 05-09 } Patch to ity of mg/patch) 00:00: 04:59 area([place] patch 00 :00 once now Medical for 1 Branch dose. lidocaine 5 2019-0 2020- No [id number] 1{patch Apply 1 [facility] % (700 5-08 05-08 } Patch to ity of mg/patch) 00:00: 00:00 area(s[place] patch 00 :00 once now Medical for 1 Branch dose. lidocaine 5 2019-0 2020- No [id number] 1{patch Apply 1 [facility] % (700 5-08 05-08 } Patch to ity of mg/patch) 00:00: 00:00 area(s[place] patch 00 :00 once now Medical for 1 Branch dose. glipiZIDE 2020-0 Yes 5mg 5 mg, Univers (GLUCOTROL) 4-23 Oral, ity of tablet 5 mg 14:00: DAILY, [place] 00 First [place] [facility] on [facility] 03[facility]08/20 at 0900[facility] spiron[facility]act 2020-0 2020- No [id number] 12.5mg Take 0.5 [facility] one 25 mg 4-23 05-24 tablets by ity of tablet 00:00: 04:59 mouth [place] 00 :00 daily for Medical 30 days. Branch spironolact 2020-0 2020- No [id number] 12.5mg Take 0.5 [facility] one 25 mg 4-23 05-24 tablets by ity of tablet 00:00: 04:59 mouth [place] 00 :00 daily for Medical 30 days. Branch spironolact 2020-0 2020- No [id number] 12.5mg Take 0.5 [facility] one 25 mg 4-23 05-24 tablets by ity of tablet 00:00: 04:59 mouth [place] 00 :00 daily for Medical 30 days. Branch spironolact 2020-0 2020- No [id number] 12.5mg Take 0.5 [facility] one 25 mg 4-23 05-07 tablets by ity of tablet 00:00: 00:00 mouth [place] 00 :00 daily for Medical 30 days. Branch spironolact 2020-0 2020- No [id number] 12.5mg Take 0.5 [facility] one 25 mg [...] 2019-0 Yes Take by Univers acid/vit B - mouth. ity of complex and 23:46: [place] C (B 10 Medical COMPLEX-VIT Branch RAZA C-FOLIC ACID ORAL) Cholecalcif 0 Yes Take by Un mel ann, - mouth. ity of Vitamin D3, 23:46: [place] 2,000 unit 10 Medical capsule Branch MULTIVITAMI 0 Yes Take by Un mel N ORAL - mouth. ity of 23:46: [place] 10 Medical Branch thiamine 2019-0 Yes 100mg [...] mouth ity of tablet 20:15: 00:00 daily. [place] 29 :00 Medical Branch atorvastati 2019-0 2020- No 40mg Take 40 mg Univers n 40 mg 03-07- by mouth ity of tablet 20:15: 00:00 at [place] 29 :00 bedtime. Medical Branch temazepam 2019-0 Yes 15mg 15 mg, Univer s (RESTORIL) - Oral, ity of capsule 15 01:55: QHSPRN, [place] mg 38 Starting Medical [facility] Branch 03/06/20 at 2055, Until Discontinu ed, Routine, Insomnia Insulin 2020-0 Yes [id number] 10U inject 10 [facility] Glargine 4-22 Units ity of 100 unit/mL 00:00: under the [place] (3 mL) 00 skin at Medical injection bedtime. Branch temazepam 2020-0 Yes [id number] 15mg Take 1 Un mel 15 mg 4-22 capsule by ity of capsule 00:00: mouth at [place] 00 bedtime as Medical needed for Branch Insomnia. furosemide 2020-0 Yes [id number] 40mg Take 1 [facility] 40 mg 4-22 tablet by ity of tablet 00:00: mouth [place] 00 every Medical morning Branch and evening. Magnesium 2020-0 Yes [id number] 400mg Take 400 Univers Oxide 420 4-22 mg by ity of mg Tab 00:00: mouth [place] 00 daily. Medical Branch potassium 2020-0 Yes [id number] 20meq Take 20 Univers chloride 20 4-22 mEq by ity of mEq packet 00:00: mouth [place] 00 daily. Medical Take with Branch lasix in the morning isosorbide 2020-0 Yes [id number] 15mg Take 0.5 [facility] mononitrate 4-22 tablets by it y of 30 mg 24 hr 00:00: mouth [place] tablet 00 daily. Medical Hold if Branch systolic blood pressure less than 120 Insulin 2020-0 Yes [id number] 10U inject 10 [facility] Glargine 4-22 Units ity of 100 unit/mL 00:00: under the [place] (3 mL) 00 skin at Medical injection bedtime. Branch temazepam 2020-0 Yes [id number] 15mg Take 1 Un mel 15 mg 4-22 capsule by ity of capsule 00:00: mouth at [place] 00 bedtime as Medical needed for Branch Insomnia. furosemide 2020-0 Yes [id number] 40mg Take 1 [facility] 40 mg 4-22 tablet by ity of tablet 00:00: mouth [place] 00 every Medical morning Branch and evening. Magnesium 2020-0 Yes [id number] 400mg Take 400 [facility] Oxide 420 4-22 mg by ity of mg Tab 00:00: mouth [place] 00 daily. Medical Branch potassium 2020-0 Yes [id number] 20meq Take 20 [facility] chloride 20 4-22 mEq by ity of mEq packet 00:00: mouth [place] 00 daily. Medical Take with Branch lasix in the morning isosorbide 2020-0 Yes [id number] 15mg Take 0.5 [facility] mononitrate 4-22 tablets by it y of 30 mg 24 hr 00:00: mouth [place] tablet 00 daily. Medical Hold if Branch systolic blood pressure less than 120 Insulin 2020-0 Yes [id number] 10U inject 10 [facility] Glargine 4-22 Units ity of 100 unit/mL 00:00: under the [place] (3 mL) 00 skin at Medical injection bedtime. Branch temazepam 2020-0 Yes [id number] 15mg Take 1 Un mel 15 mg 4-22 capsule by ity of capsule 00:00: mouth at [place] 00 bedtime as Medical needed for Branch Insomnia. furosemide 2020-0 Yes [id number] 40mg Take 1 [facility] 40 mg 4-22 tablet by ity of tablet 00:00: mouth [place] 00 every Medical morning Branch and evening. Magnesium 2020-0 Yes [id number] 400mg Take 400 Univers Oxide 420 4-22 mg by ity of mg Tab 00:00: mouth [place] 00 daily. Medical Branch potassium 2020-0 Yes [id number] 20meq Take 20 Univers chloride 20 4-22 mEq by ity of mEq packet 00:00: mouth [place] 00 daily. Medical Take with Branch lasix in the morning isosorbide 2020-0 Yes [id number] 15mg Take 0.5 [facility] mononitrate 4-22 tablets by it y of 30 mg 24 hr 00:00: mouth [place] tablet 00 daily. Medical Hold if Branch systolic blood pressure less than 120 Insulin 2020-0 Yes [id number] 10U inject 10 [facility] Glargine 4-22 Units ity of 100 unit/mL 00:00: under the [place] (3 mL) 00 skin at Medical injection bedtime. Branch Magnesium 2020-0 Yes [id number] 400mg Take 400 [facility] Oxide 420 4-22 mg by ity of mg Tab 00:00: mouth [place] 00 daily. Medical Branch vitamin 2020-0 2020- No [id number] 1000ug Take 1 Univers B-12 1,000 4-22 07-22 tablet by ity of mcg tablet 00:00: 04:59 mouth [place] 00 :00 daily for Medical 90 days. Branch vitamin 2020-0 2020- No [id number] 1000ug Take 1 Univers B-12 1,000 4-22 -22 tablet by ity of mcg tablet 00:00: 04:59 mouth [place] 00 :00 daily for Medical 90 days. Branch vitamin 2020-0 2020- No [id number] 1000ug Take 1 Univers B-12 1,000 4-22 07-22 tablet by ity of mcg tablet 00:00: 04:59 mouth [place] 00 :00 daily for Medical 90 days. Branch vitamin 2019-0 2020- No [id number] 1000ug Take 1 Univers B-12 1,000 4-22 -22 tablet by ity of mcg tablet 00:00: 04:59 mouth [place] 00 :00 daily for Medical 90 days. Branch glipiZIDE 5 2020- No [id number] 2.5mg Take 0.5 Univers mg tablet 03-07-23 tablets by ity of 00:00: 04:59 mouth 2 [place] 00 :00 (two) Medical times Branch daily before breakfast and dinner for 30 days. metoprolol 2019- 2020- No [id number] 25mg Take 1 [facility] succinate -06 04-23 tablet by ity of XL 25 mg 24 00:00: 04:59 mouth 2 [place] hr tablet 00 :00 (two) Medical times Branch daily for 30 days. OLANZapine 2019- 2020- No [id number] 2.5mg Take 1 [facility] 2.5 mg -06 04-23 tablet by ity of tablet 00:00: 04:59 mouth at [place] 00 :00 bedtime Medical for 30 Branch days. ranolazine 2019- 2020- No [id number] 1000mg Take 2 [facility] 500 mg 12 03-07-23 tablets by ity of hr tablet 00:00: 04:59 mouth [place] 00 :00 every 12 Medical (twelve) Branch hours for 30 days. aspirin 81 2019-0 2020- No [id number] 81mg Take 1 [facility] mg chewable - 05-23 tablet by it y of tablet 00:00: 04:59 mouth [place] 00 :00 daily with Medical breakfast Branch for 30 days. atorvastati 2019-0 2020- No [id number] 40mg Take 1 Univers n 40 mg 4- 05-23 tablet by ity of tablet 00:00: 04:59 mouth at [place] 00 :00 bedtime Medical for 30 Branch days. glipiZIDE 5 2019- 2020- No [id number] 2.5mg Take 0.5 [facility] mg tablet 4-22 05-23 tablets by ity of 00:00: 04:59 mouth 2 [place] 00 :00 (two) Medical times Branch daily before breakfast and dinner for 30 days. metoprolol 2020-0 2020- No [id number] 25mg Take 1 [facility] succinate 4-22 05-23 tablet by ity of XL 25 mg 24 00:00: 04:59 mouth 2 [place] hr tablet 00 :00 (two) Medical times Branch daily for 30 days. OLANZapine 2019-0 2020- No [id number] 2.5mg Take 1 [facility] 2.5 mg 4-22 05-23 tablet by ity of tablet 00:00: 04:59 mouth at [place] 00 :00 bedtime Medical for 30 Branch days. ranolazine 2019-0 2020- No [id number] 1000mg Take 2 [facility] 500 mg 12 4-22 05-23 tablets by ity of hr tablet 00:00: 04:59 mouth [place] 00 :00 every 12 Medical (twelve) Branch hours for 30 days. aspirin 81 2019-0 2020- No [id number] 81mg Take 1 [facility] mg chewable 4-22 05-23 tablet by it y of tablet 00:00: 04:59 mouth [place] 00 :00 daily with Medical breakfast Branch for 30 days. atorvastati 2019-0 2020- No [id number] 40mg Take 1 Univers n 40 mg 4-22 05-23 tablet by ity of tablet 00:00: 04:59 mouth at [place] 00 :00 bedtime Medical for 30 Branch days. glipiZIDE 5 2019-0 2020- No [id number] 2.5mg Take 0.5 Univers mg tablet 4- 05-23 tablets by ity of 00:00: 04:59 mouth 2 [place] 00 :00 (two) Medical times Branch daily before breakfast and dinner for 30 days. metoprolol 2019-0 2020- No [id number] 25mg Take 1 [facility] succinate 4-22 05-23 tablet by ity of XL 25 mg 24 00:00: 04:59 mouth 2 [place] hr tablet 00 :00 (two) Medical times Branch daily for 30 days. OLANZapine 2020-0 2020- No [id number] 2.5mg Take 1 [facility] 2.5 mg 4-22 05-23 tablet by ity of tablet 00:00: 04:59 mouth at [place] 00 :00 bedtime Medical for 30 Branch days. ranolazine 2020- 2020- No [id number] 1000mg Take 2 [facility] 500 mg 12 4-22 05-23 tablets by ity of hr tablet 00:00: 04:59 mouth [place] 00 :00 every 12 Medical (twelve) Branch hours for 30 days. aspirin 81 2019- 2020- No [id number] 81mg Take 1 [facility] mg chewable 4-22 05-23 tablet by it y of tablet 00:00: 04:59 mouth [place] 00 :00 daily with Medical breakfast Branch for 30 days. atorvastati 2019- 2020- No [id number] 40mg Take 1 [facility] n 40 mg 4-22 05-23 tablet by ity of tablet 00:00: 04:59 mouth at [place] 00 :00 bedtime Medical for 30 Branch days. glipiZIDE 5 2019- 2020- No [id number] 2.5mg Take 0.5 [facility] mg tablet - 05-23 tablets by ity of 00:00: 04:59 mouth 2 [place] 00 :00 (two) Medical times Branch daily before breakfast and dinner for 30 days. metoprolol 2019-2019- No [id number] 25mg Take 1 [facility] succinate 4-22 05-23 tablet by ity of XL 25 mg 24 00:00: 04:59 mouth 2 [place] hr tablet 00 :00 (two) Medical times Branch daily for 30 days. ranolazine 2019- 2020- No [id number] 1000mg Take 2 [facility] 500 mg 12 4-22 05-23 tablets by ity of hr tablet 00:00: 04:59 mouth [place] 00 :00 every 12 Medical (twelve) Branch hours for 30 days. atorvastati 2019- 2020- No [id number] 40mg Take 1 Univers n 40 mg 4-22 05-23 tablet by ity of tablet 00:00: 04:59 mouth at [place] 00 :00 bedtime Medical for 30 Branch days. furosemide 2019- 2020- No [id number] 40mg Take 1 [facility] 40 mg 4-22 05-08 tablet by ity of tablet 00:00: 00:00 mouth [place] 00 :00 every Medical morning Branch and evening. aspirin 81 2019- 2020- No [id number] 81mg Take 1 [facility] mg chewable 4-22 05-08 tablet by it y of tablet 00:00: 00:00 mouth [place] 00 :00 daily with Medical breakfast Branch for 30 days. isosorbide 2019-2019- No [id number] 15mg Take 0.5 Univers mononitrate 03-07-08 tablets by i ty of 30 mg 24 hr 00:00: 00:00 mouth [place] tablet 00 :00 daily. Medical Hold if Branch systolic blood pressure less than 120 Insulin 2019- 2020- No [id number] 10U inject 10 Univers Glargine 03-07-08 Units ity of 100 unit/mL 00:00: 00:00 under the [place] (3 mL) 00 :00 skin at Medical injection bedtime. Branch glipiZIDE 5 2019- No [id number] 2.5mg Take 0.5 Univers mg tablet 03-07-08 tablets by ity of 00:00: 00:00 mouth 2 [place] 00 :00 (two) Medical times Branch daily before breakfast and dinner for 30 days. metoprolol 2019- No [id number] 25mg Take 1 [facility] succinate 03-07-08 tablet by ity of XL 25 mg 24 00:00: 00:00 mouth 2 [place] hr tablet 00 :00 (two) Medical times Branch daily for 30 days. ranolazine 2020- No [id number] 1000mg Take 2 [facility] 500 mg 12 03-07-08 tablets by ity of hr tablet 00:00: 00:00 mouth [place] 00 :00 every 12 Medical (twelve) Branch hours for 30 days. furosemide 2019- 2020- No [id number] 40mg Take 1 [facility] 40 mg 03-07-08 tablet by ity of tablet 00:00: 00:00 mouth [place] 00 :00 every Medical morning Branch and evening. aspirin 81 2019- 2020- No [id number] 81mg Take 1 [facility] mg chewable 03-07-08 tablet by it y of tablet 00:00: 00:00 mouth [place] 00 :00 daily with Medical breakfast Branch for 30 days. atorvastati 2019- 2020- No [id number] 40mg Take 1 [facility] n 40 mg 03-07-08 tablet by ity of tablet 00:00: 00:00 mouth at [place] 00 :00 bedtime Medical for 30 Branch days. Magnesium 2019- 2020- No [id number] 400mg Take 400 Univers Oxide 420 4-22 05-08 mg by ity of mg Tab 00:00: 00:00 mouth [place] 00 :00 daily. Medical Branch vitamin 2019-2019- No [id number] 1000ug Take 1 Univers B-12 1,000 - 05-08 tablet by ity of mcg tablet 00:00: 00:00 mouth [place] 00 :00 daily for Medical 90 days. Branch isosorbide 2019- No [id number] 15mg Take 0.5 Univers mononitrate 03-07 05-08 tablets by i ty of 30 mg 24 hr 00:00: 00:00 mouth [place] tablet 00 :00 daily. Medical Hold if Branch systolic blood pressure less than 120 OLANZapine 2019- 2020- No [id number] 2.5mg Take 1 Univers 2.5 mg - 05-07 tablet by ity of tablet 00:00: 00:00 mouth at [place] 00 :00 bedtime Medical for 30 Branch days. temazepam 2020- No [id number] 15mg Take 1 U nivers 15 mg - 05-07 capsule by ity of capsule 00:00: 00:00 mouth at [place] 00 :00 bedtime as Medical needed for Branch Insomnia. potassium 2019- No [id number] 20meq Take 20 Univers chloride 20 -22 05-07 mEq by ity o f mEq packet 00:00: 00:00 mouth [place] 00 :00 daily. Medical Take with Branch lasix in the morning OLANZapine 2019-2019- No [id number] 2.5mg Take 1 Univers 2.5 mg - 05-07 tablet by ity of tablet 00:00: 00:00 mouth at [place] 00 :00 bedtime Medical for 30 Branch days. temazepam 2019- No [id number] 15mg Take 1 U nivers 15 mg 4- 05-07 capsule by ity of capsule 00:00: 00:00 mouth at [place] 00 :00 bedtime as Medical needed for Branch Insomnia. potassium 2019- 2020- No [id number] 20meq Take 20 Univers chloride 20 4-22 05-07 mEq by ity o f mEq packet 00:00: 00:00 mouth [place] 00 :00 daily. Medical Take with Branch lasix in the morning isosorbide 2019- 2020- No 60mg 60 mg, Univ ers mononitrate 4-21 04-21 Oral, ity of (IMDUR) 24 14:00: 13:43 DAILY, [place] hr tablet 00 :56 First dose Medi birdie 60 mg on [facility] 03/06/20 at 0900, Until Discontinu ed, Routine OLANZapine 2020-0 Yes 2.5mg 2.5 mg, Uni vers (ZyPREXA) 4-21 Oral, QHS, ity of tablet 2.5 02:00: First dose [place] mg 00 on [facility] 03/05/20 at Branch 2100, Until Discontinu ed, Routine insulin 2020-0 Yes 10U 10 Units, Unive rs glargine -21 Subcutaneo ity o f (LANTUS 02:00: us, QHS, [place] U-100) 00 First dose Medical injection on [facility] 10 Units 03/05/20 at 2100, Until Discontinu ed, Routine donepezil 2020-0 Yes 5mg 5 mg, Univers (ARICEPT) 4- Oral, QHS, ity of tablet 5 mg 02:00: First dose [place] 00 on [facility] 03/05/20 at Branch 2100, Until Discontinu ed, Routine atorvastati 2020-0 Yes 40mg 40 mg, Univ ers n (LIPITOR) 4-21 Oral, QHS, it y of tablet 40 02:00: First dose [place] mg 00 on [facility] 03/05/20 at Branch 2100, Until Discontinu ed, Routine isosorbide 2020-0 2020- No 30mg 30 mg, Univ ers mononitrate 03-05-20 Oral, ity of (IMDUR) 24 15:30: 15:21 ONCE, 1 [place] hr tablet 00 :00 dose, [facility] Medic al 30 mg 03/05/20 at [...] 03/05/20 at 0900, Until Discontinu ed, Routine
guardian family member approving [facility] l[facility] 2020-0 2020- No 5mg 5 mg, Unive rs (PRINIVIL,Z 03-05-21 Oral, ity of ESTRIL) 14:00: 13:44 DAILY, [place] tablet 5 mg 00 :01 First dose Me dical on Thu Branch 03/05/20 at 0900, Until [...] Yes 25mg 25 mg, Unive rs succinate -20 Oral, BID, ity of XL (TOPROL 13:00: First dose [place] XL) tablet 00 on [facility] Medical 25 mg 03/05/20 at Branch 0800, Until Discontinu ed, Routine magnesium 2020-0 Yes 400mg 400 mg, Univ ers oxide -20 Oral, BID, ity of (MAG-OX 13:00: First dose [place] 400) tablet 00 on Thu Medica l 400 mg 03/05/20 at Branch 0800, Until Discontinu ed, Routine aspirin 2020-0 Yes 81mg 81 mg, Univers chewable -20 Oral, QAM ity of tablet 81 13:00: WITH [place] mg 00 BREAKFAST, Medical First dose Branch on Thu03/05/20 at 0800, Until Discontinu ed, [...] :44 First dose Medical on [facility] 03/05/20 at 0730, Until Discontinu ed, Routine glucagon 2020-0 Yes 1mg 1 mg, Univers (GLUCAGEN 4-20 Intramuscu ity of DIAGNOSTIC 03:02: [place], PRN, [place] KIT) 42 Starting Medical injection 1 [facility] mg 03/04/20 at 2202, Until Discontinu ed, ADAMA, Blood Glucose < or = 70 mg/dL and patient is unable to swallow or has mental changes. dextrose 50 2020-0 Yes 25mL 25 mL, Univ ers % in water 4-20 Slow IV ity of (D50W) 03:02: Push, PRN, [place] injection 42 Starting Medica l 25 mL [facility] 03/04/20 at 2202, Until Discontinu ed, ADAMA, Blood Glucose < or = 70 mg/dL and patient is unable to swallow or has mental status changes. furosemide 2020-0 Yes 40mg 40 mg, Unive rs (LASIX) 4-20 Oral, ity of tablet 40 03:00: QAM+PM, [place] mg 00 First dose Medical on [facility] 03/04/20 at 2200, Until Discontinu ed, Routine cyanocobala 2020-0 Yes 1000ug 1,000 mcg, Univers min 4-20 Subcutaneo ity of (VITAMIN 03:00: [place], Q24H, [place] B12) 00 First dose Medical injection on [facility] 1,000 mcg 03/04/20 at 2200, Until Discontinu ed, Routine heparin 2020-0 Yes 5000U 5,000 Univers (porcine) 4-20 Units, ity of injection 03:00: Subcutaneo [place] 5,000 Units 00 us, Q8H, Medi birdie First dose Branch on [place] 03/04/20 at 2200, Until Discontinu ed, Routine ondansetron 2020-0 Yes 4mg 4 mg, Slow Univers (ZOFRAN 4-20 IV Push, ity of (PF)) 02:34: Q6HPRN, [place] injection 4 40 Starting Medi birdie mg [facility] 03/04/20 at 2134, Until Discontinu ed, Routine, Nausea and Vomiting (N/V) traMADol 2020- No 50mg 50 mg, Univer s (ULTRAM) 4-20 04-22 Oral, ity of tablet 50 02:34: 02:33 Q8HPRN, [place] mg 23 :23 Starting Medical [facility] 03/04/20 at 2134, Until 03/06/20 at 2133, Routine, Pain (scale 4-6) acetaminoph 2019-0 Yes 650mg 650 mg, Un mel en 4-20 Oral, ity of (TYLENOL) 02:34: Q6HPRN, [place] tablet 650 20 Starting Medic al mg [facility] 03/04/20 at 2134, Until Discontinu ed, Routine, Pain (scale 1-3) lisinopril 2019-0 Yes [id number] 5mg Take 1 Univers 5 mg tablet 4-18 tablet by ity of 00:00: mouth [place] 00 daily. Medical Branch isosorbide 2019-0 Yes [id number] 30mg Take 1 [facility] mononitrate 4-18 tablet by ity of 30 mg 24 hr 00:00: mouth [place] tablet 00 daily. Medical Branch lisinopril 2019-0 Yes [id number] 5mg Take 1 [facility] 5 mg tablet 4-18 tablet by ity of 00:00: mouth [place] 00 daily. Medical Branch isosorbide 2019-0 Yes [id number] 30mg Take 1 [facility] mononitrate 4-18 tablet by ity of 30 mg 24 hr 00:00: mouth [place] tablet 00 daily. Medical Branch lisinopril 2019-0 2020- No [id number] 5mg Take 1 [facility] 5 mg tablet 4-18 04-22 tablet by it y of 00:00: 00:00 mouth [place] 00 :00 daily. Medical Branch isosorbide 2019-0 2020- No [id number] 30mg Take 1 [facility] mononitrate 4-18 04-22 tablet by it y of 30 mg 24 hr 00:00: 00:00 mouth [place] tablet 00 :00 daily. Medical Branch memantine-d 2019-0 Yes 1{capsu Take 1 U nivers onepezil 4-17 le} capsule by ity o f (NAMZARIC) 17:34: mouth [place] 28-10 mg 27 daily. Medical CSpX Branch folic 2019- Yes Take by Univers acid/vit B 4-17 [...] N ORAL 4-17 mouth. ity of 17:34: [place] [address] Medical Branch thiamine 2020-0 Yes 100mg Take 100 Univ ers (VITAMIN 4-17 mg by ity of B-1) 100 mg 17:34: mouth [place] tablet 27 daily. Medical Branch aspirin 81 2020-0 Yes 81mg Take 81 mg U nivers mg chewable 4-17 by mouth ity of tablet 17:34: daily. [place] [address] Medical Branch atorvastati 2020-0 Yes 40mg Take 40 mg Univers n 40 mg 4-17 by mouth ity of tablet 17:34: at [place] [address] bedtime. Medical Branch NaCl 0.9% 2020-0 Yes [...] 4-17 mouth. ity of Vitamin D3, 17:34: [place] 2,000 unit 27 Medical capsule Branch metoprolol 2020-0 Yes 12.5mg Take 12.5 Univers tartrate 4-17 mg by ity of 12.5 mg 17:34: mouth 2 [place] 27 (two) Medical times Branch daily. MULTIVITAMI 2020-0 Yes Take by Un mel N ORAL 4-17 mouth. ity of 17:34: [place] Medical Branch thiamine 2020-0 Yes 100mg Take 100 Univ ers (VITAMIN 4-17 mg by ity of B-1) 100 mg 17:34: mouth [place] tablet 27 daily. Medical Branch aspirin 81 2020-0 Yes 81mg Take 81 mg U nivers mg chewable 4-17 by mouth ity of tablet 17:34: daily. [place] Medical Branch atorvastati 2020-0 Yes 40mg Take 40 mg Univers n 40 mg 4-17 by mouth ity of tablet 17:34: at [place] 27 bedtime. Medical Branch NaCl 0.9% 2020-0 [...] tablet 5 mg 02:00: First dose on [facility] Medical 03/01/20 at Branch 2100, Until Discontinu ed, Routine furosemide 2020-0 Yes [id number] 40mg Take 1 Univers 40 mg 4-17 tablet by ity of tablet 00:00: mouth [place] 00 every Medical morning Branch and evening. potassium 2020-0 Yes [id number] 20meq Take 20 Univers chloride 20 4-17 mEq by ity of mEq packet 00:00: mouth [place] 00 daily. Medical Branch vitamin 2020-0 Yes [id number] 1000ug Take 1 U nivers B-12 1,000 4-17 tablet by ity of mcg tablet 00:00: mouth [place] 00 daily. Medical Branch furosemide 2020-0 Yes [id number] 40mg Take 1 Univers 40 mg 4-17 tablet by ity of tablet 00:00: mouth [place] 00 every Medical morning Branch and evening. potassium 2020-0 Yes [id number] 20meq Take 20 Univers chloride 20 4-17 mEq by ity of mEq packet 00:00: mouth [place] 00 daily. Medical Branch vitamin 2020-0 Yes [id number] 1000ug Take 1 U nivers B-12 1,000 4-17 tablet by ity of mcg tablet 00:00: mouth [place] 00 daily. Medical Branch furosemide 2019-0 2020- No [id number] 40mg Take 1 [facility] 40 mg 03-02-22 tablet by ity of tablet 00:00: 00:00 mouth [place] 00 :00 every Medical morning Branch and evening. potassium 2019-0 2020- No [id number] 20meq Take 20 Univers chloride 20 -17 -22 mEq by ity o f mEq packet 00:00: 00:00 mouth [place] 00 :00 daily. Medical Branch vitamin 2020-0 2020- No [id number] 1000ug Take 1 Univers B-12 1,000 -02 03-22 tablet by ity of mcg tablet 00:00: 00:00 mouth [place] 00 :00 daily. Medical Branch cyanocobala 2019-0 Yes 1000ug 1,000 mcg, Univers min 4-16 Subcutaneo ity of (VITAMIN 20:45: [place], Q24H, [place] B12) 00 First dose Medical injection on [facility] Branch 1,000 mcg 03/01/20 at 1545, Until Discontinu ed, Routine isosorbide 2020-0 Yes 30mg 30 mg, Unive rs mononitrate 4-16 Oral, ity of (IMDUR) 24 14:00: DAILY, [place] hr tablet 00 First dose Medi birdie 30 mg on [facility] Branch 03/01/20 at 0900, Until Discontinu ed, Routine memantine 2019-0 Yes 10mg 10 mg, Univer s (NAMENDA) 4-16 Oral, ity of tablet 10 14:00: DAILY, [place] mg 00 First dose Medical on [facility] Branch 03/01/20 at 0900, Until Discontinu ed, Routine
guardian family member approving Restricted medication : MEGADC lisinopril 2020-0 Yes 5mg 5 mg, Univer s (PRINIVIL,Z 4-16 Oral, ity of ESTRIL) 14:00: DAILY, [place] tablet 5 mg 00 First dose Me dical on [facility] Branch 03/01/20 at 0900, Until Discontinu ed, Routine enoxaparin 2019-0 Yes 30mg 30 mg, Unive rs (LOVENOX) [...] [place] gram/50 mL 00 :00 dose, Thu [facility] birdie (4 %) 2 g 02/29/20 at [facility] piggyback 2230 metoprolol 2020-0 2020- No 5mg 5 mg, Slow Univers (LOPRESSOR) 03-01 IV Push, ity of injection 5 03:30: 03:37 ONCE, 1 [place] mg 00 :00 dose, [facility] 02/29/20 at Branch 2230, ADAMA glipiZIDE 2020-0 Yes 5mg 5 mg, Univers (GLUCOTROL) 03-01 Oral, ity of tablet 5 mg 02:45: BIDAC, [place] 00 First dose Medical on [facility] 02/29/20 at 2145, Until Discontinu ed, Routine insulin 2020-0 Yes 10U 10 Units, Unive rs glargine 03-01 Subcutaneo ity o f (LANTUS 02:45: us, Q, [place] U-100) 00 First dose Medical injection on [facility] Branch 10 Units 02/29/20 at 2145, Until Discontinu ed, Routine OLANZapine 2020-0 Yes 2.5mg 2.5 mg, Uni vers (ZyPREXA) 03-01 Oral, QHS, ity of tablet 2.5 02:45: First dose [place] 00 on [facility] 02/29/20 at Branch 2145, Until Discontinu [...] 02-28 Oral, ity of (TYLENOL) 23:57: Q6HPRN, [place] tablet 650 25 Starting Medic al mg Wed Branch 02/29/20 at 1857, Until Discontinu ed, Routine, Pain (scale 1-3) NaCl 0.9% 2019- No 500mL at 999 Univ ers (NS) bolus 02-28 mL/hr, 500 it y of infusion 23:30: 23:37 mL, IV [place] 500 mL 00 :00 Infusion, Medical ONCE, 1 Branch dose, [facility] 02/29/20 at 1830, ADAMA acetaminoph 2019-2019- No 650mg 650 mg, U nivers en 02-28 Oral, ity of (TYLENOL) 23:00: 22:36 ONCE, 1 [place] tablet 650 00 :00 dose, Thu Medi birdie mg 02/29/20 at Branch 1800, ADAMA donepezil 5 2019-0 Yes 5mg Take 5 mg U nivers mg tablet 02-14 by mouth ity of 00:00: daily. [place] [facility] Branch donepezil 5 2019-0 2020- No 5mg Take 5 mg Univers mg tablet 02-1408 by mouth ity o f 00:00: 00:00 daily. [place] 00 :00 Medical Branch nitroglycer 2019- 2020- No DISSOLVE U nivers in 0.4 mg 02-14 ONE TABLET ity of sublingual 00:00: 00:00 UNDER THE [place] tablet 00 :00 TONGUE Medical EVERY 5 Branch MINUTES NEEDED FOR CHEST PAIN. DO NOT EXCEED A TOTAL OF 3 DOSES IN 15 MINUTES KCL 10 mEq 2019- 2020- No 10meq Take 10 Un mel [...] No 10meq Take 10 Un mel tablet 4- 05-07 mEq by ity of 00:00: 00:00 [...] by mouth ity of tablet 23:00: daily. [place] [address] Medical Branch atorvastati 2020-0 Yes 40mg Take 40 mg Univers n 40 mg 3-03 by mouth ity of tablet 23:00: at [place] 52 bedtime. Medical Branch NaCl 0.9% 2020-0 [...] N ORAL 3-03 mouth. ity of 23:00: [place] [address] Medical Branch thiamine 2020-0 Yes 100mg Take 100 Univ ers (VITAMIN 3-03 mg by ity of B-1) 100 mg 23:00: mouth [place] tablet 52 daily. Medical Branch aspirin 81 2020-0 Yes 81mg Take 81 mg U nivers mg chewable 3-03 by mouth ity of tablet 23:00: daily. [place] [address] Medical Branch atorvastati 2020-0 Yes 40mg Take 40 mg Univers n 40 mg 3-03 by mouth ity of tablet 23:00: at [place] [address] bedtime. Medical Branch NaCl 0.9% 2020-0 Yes 10mL Inject 10 Uni vers (NS) Soln 3-03 mL ity of 10 mL with 23:00: intravenou [place] sodium 52 sly once Medical chloride now. Branch 2.5 mEq/mL SolP 17.125 mEq memantine-d 2020-0 Yes 1{capsu Take 1 U nivers onepezil 3-03 le} capsule by itazra o f (NAMZARIC) 23:00: mouth [place] 28-10 [...] N ORAL 3-03 mouth. ity of 23:00: [place] 52 Medical Branch thiamine 2020-0 Yes 100mg Take 100 Univ ers (VITAMIN 3-03 mg by ity of B-1) 100 mg 23:00: mouth [place] tablet 52 daily. Medical Branch aspirin 81 2020-0 Yes 81mg Take 81 mg U nivers mg chewable 3-03 by mouth ity of tablet 23:00: daily. [place] [address] Medical Branch atorvastati 2020-0 Yes 40mg Take 40 mg Univers n 40 mg 3-03 by mouth ity of tablet 23:00: at [place] [address] bedtime. Medical Branch NaCl 0.9% 2020-0 Yes [...] by ity of mEq packet 23:00: mouth [place] 52 daily. Medical Branch Cholecalcif 2020-0 Yes Take by Un mel ann, 3-03 mouth. ity of Vitamin D3, 23:00: [place] 2,000 unit 52 Medical capsule Branch metoprolol 2020-0 Yes 12.5mg Take 12.5 Univers tartrate 3-03 mg by ity of 12.5 mg 23:00: mouth 2 [place] 52 (two) Medical times Branch daily. MULTIVITAMI 2020-0 Yes Take by Un mel N ORAL 3-03 mouth. ity of 23:00: [place] [address] Medical Branch thiamine 2020-0 Yes 100mg Take 100 Univ ers (VITAMIN 3-03 mg by ity of B-1) 100 mg 23:00: mouth [place] tablet 52 daily. Medical Branch aspirin 81 2020-0 Yes 81mg Take 81 mg U nivers mg chewable 3-03 by mouth ity of tablet 23:00: daily. [address] Branch atorvastati 2019-0 Yes 40mg Take 40 mg Univers n 40 mg 3-03 by mouth ity of tablet 23:00: at [place] [address] bedtime. Medical Branch NaCl 0.9% 2019-0 Yes [...] First dose [place] 00 on [facility] 01/16/20 at Branch 2100, Until Discontinu ed, Routine ranolazine 2019-0 2020- No [id number] 500mg Take 1 Univers 500 mg 12 01-16-03 tablet by ity of hr tablet 00:00: 04:59 mouth [place] 00 :00 every 12 Medical (twelve) Branch hours for 30 days. ranolazine 2020-0 2020- No [id number] 500mg Take 1 Univers 500 mg 12 01-16 04-03 tablet by ity of hr tablet 00:00: 04:59 mouth [place] 00 :00 every 12 Medical (twelve) Branch hours for 30 days. ranolazine 2020-0 2020- No [id number] 500mg Take 1 Univers 500 mg 12 - 04-03 tablet by ity of hr tablet 00:00: 04:59 mouth [place] 00 :00 every 12 Medical (twelve) Branch hours for 30 days. ranolazine 2020-0 2020- No [id number] 500mg Take 1 Univers 500 mg 12 -03 04-03 tablet by ity of hr tablet [...] U-100) 00 First dose Medical injection on [facility] Branch 30 Units 01/16/20 at 0900, Until Discontinu ed furosemide 2020-0 Yes 40mg 40 mg, Unive rs (LASIX) 01-15 Oral, ity of tablet 40 15:00: DAILY, [place] mg 00 First dose Medical on [facility] Branch 01/16/20 at 0900, Until Discontinu [...] First dose [place] tablet 12.5 00 on [facility] Medica l mg 01/16/20 at Branch 0800, Until Discontinu ed, Routine Sliding 2020-0 Yes Subcutaneo Univ ers Scale 02 us, Q6H, ity of Insulin-Reg 12:00: First dose [place] ular + Fsbg 00 on [facility] Medica l Testing 01/16/20 at Branch [...] IV ity of (D50W) 10:52: Push, PRN, [place] injection 33 Starting Medica l 25 mL [...] IV Push, ity of (PF)) 07:55: Q6HPRN, [place] injection 4 01 Starting Medi birdie mg 01/16/20 Branch at 0155, Until Discontinu ed, Routine, Nausea and Vomiting (N/V) morpHINE 2019-0 2020- No 2mg 2 mg, Slow Un mel injection 2 01-1503 IV Push, ity of mg 07:54: 07:53 [facility], [place] 55 :55 Starting Medical 01/16/20 Branch at 0154, Until Tu01/17/20 at 0153, Routine, Pain (scale 7-10) traMADol 2019-0 2020- No 50mg 50 mg, Univer s (ULTRAM) 01-15 03-04 Oral, ity of tablet 50 07:54: 07:53 [facility], [place] [facility]47 Starting Medical 01/16/20 Branch at 0154, Until Thu01/18/20 at 0153, Routine, Pain (scale 4-6) acetaminoph 2019-0 Yes 650mg 650 mg, Un mel en 01-15 Oral, ity of (TYLENOL) 07:54: Q6HP, [place] tablet 650 44 Starting Medic al mg [facility] 01/16/20 Branch at 0154, Until Discontinu [...] 01/15/20 at 2345, ADAMA furosemide 2018-11 Yes [id number] 40mg Take 1 Univers 40 mg 0-26 tablet by ity of tablet 00:00: mouth [place] 00 daily. Medical Branch furosemide 2018-11 Yes [id number] 40mg Take 1 Univers 40 mg 0-26 tablet by ity of tablet 00:00: mouth [place] 00 daily. Medical Branch furosemide 2018-11 Yes [id number] 40mg Take 1 Univers 40 mg 0-26 tablet by ity of tablet 00:00: mouth [place] 00 daily. Medical Branch furosemide 2018-11 Yes [id number] 40mg Take 1 Univers 40 mg 0-26 tablet by ity of tablet 00:00: mouth [place] 00 daily. Medical Branch furosemide 2018-11 2020- No [id number] 40mg Take 1 Univers 40 mg 0-26 04-17 tablet by ity of tablet 00:00: 00:00 mouth [place] 00 :00 daily. Medical Branch magnesium 2018-11 Yes [id number] 400mg Take 400 Univers oxide 420 0-23 mg by ity of mg Tab 00:00: mouth [place] 00 daily. Medical Branch magnesium 2018-11 Yes [id number] 400mg Take 400 Univers oxide 420 0-23 mg by ity of mg Tab 00:00: mouth [place] 00 daily. Medical Branch magnesium 2018-11 Yes [id number] 400mg Take 400 Univers oxide 420 0-23 mg by ity of mg Tab 00:00: mouth [place] 00 daily. Medical Branch magnesium 2018-11 Yes [id number] 400mg Take 400 Univers oxide 420 0-23 mg by ity of mg Tab 00:00: mouth [place] 00 daily. Medical Branch magnesium 2019- Yes [id number] 400mg Take 400 Univers oxide 420 0-23 mg by ity of mg Tab 00:00: mouth [place] 00 daily. Medical Branch magnesium 2018- Yes [id number] 400mg Take 400 Univers oxide 420 0-23 mg by ity of mg Tab 00:00: mouth [place] 00 daily. Medical Branch magnesium 2018- 2020- No [id number] 400mg Take 400 Univers oxide 420 0-23 04-22 mg by ity of mg Tab 00:00: 00:00 mouth [place] 00 :00 daily. [facility] Branch Insulin 2019-0 Yes [id number] 30U inject 30 Univers Glargine 9-11 Units ity of 100 unit/mL 00:00: under the [place] (3 mL) 00 skin every Medical injection morning. Branch Insulin 2018-0 Yes [id number] 30U inject 30 Univers Glargine 9-11 Units ity of 100 unit/mL 00:00: under the [place] (3 mL) 00 skin every Medical injection morning. Branch Insulin 2018-0 Yes [id number] 30U inject 30 Univers Glargine 9-11 Units ity of 100 unit/mL 00:00: under the [place] (3 mL) 00 skin every Medical injection morning. Branch Insulin 2018-0 Yes [id number] 30U inject 30 Univers Glargine 9-11 Units ity of 100 unit/mL 00:00: under the [place] (3 mL) 00 skin every Medical injection morning. Branch Insulin 2018-0 Yes [id number] 30U inject 30 Univers Glargine 9-11 Units ity of 100 unit/mL 00:00: under the [place] (3 mL) 00 skin every Medical injection morning. Branch Insulin 2019-0 Yes [id number] 30U inject 30 Univers Glargine 9-11 Units ity of 100 unit/mL 00:00: under the [place] (3 mL) 00 skin every Medical injection morning. Branch Insulin 2018-0 Yes [id number] 30U inject 30 Univers Glargine 9-11 Units ity of 100 unit/mL 00:00: under the [place] (3 mL) 00 skin every Medical injection morning. Branch Insulin 2020- No [id number] 30U inject 30 Univers Glargine 9 04-22 Units ity of 100 unit/mL 00:00: 00:00 under the [place] (3 mL) 00 :00 skin every Medical injection morning. Branch memantine-d Yes 1{capsu Take 1 U nivers onepezil 5-10 le} capsule by ity o f (NAMZARIC) 15:26: mouth [place] 28-10 mg 43 daily. Medical CSpX Branch enoxaparin Yes 30mg inject 30 Un mel injection 5-10 mg under ity of 15:26: the skin. [place] [address] Medical Branch Cholecalcif 0 Yes Take by Un mel ann, 5-10 mouth. ity of Vitamin D3, 15:26: [place] 2,000 unit 43 Medical capsule Branch metoprolol Yes 12.5mg Take 12.5 Univers tartrate 5-10 mg by ity of 12.5 mg 15:26: mouth 2 [place] 43 (two) Medical times Branch daily. MULTIVITAMI Yes Take by Un mel N ORAL 5-10 mouth. ity of 15:26: [place] [address] Medical Branch thiamine Yes 100mg Take 100 Univ ers (VITAMIN 5-10 mg by ity of B-1) 100 mg 15:26: mouth [place] tablet 43 daily. Medical Branch aspirin 81 0 Yes 81mg Take 81 mg U nivers mg chewable 5-10 by mouth ity of tablet 15:26: daily. [place] [address] Medical Branch atorvastati 0 Yes 40mg Take 40 mg Univers n 40 mg 5-10 by mouth ity of tablet 15:26: at [place] 43 bedtime. Medical Branch furosemide 0 Yes 40mg Take 40 mg U nivers 40 mg 5-10 by mouth ity of tablet 15:26: daily. [place] [address] Medical Branch NaCl 0.9% 0 Yes 10mL [...] enoxaparin 2018-0 Yes 30mg inject 30 Un mle injection 5-10 mg under ity of 15:26: the skin. [place] [address] Medical Branch Cholecalcif 2018-0 Yes Take by Un mel ann, 5-10 mouth. ity of Vitamin D3, 15:26: [place] 2,000 unit Medical capsule Branch metoprolol 0 Yes 12.5mg Take 12.5 Univers tartrate 5-10 mg by ity of 12.5 mg 15:26: mouth 2 [place] 43 (two) Medical times Branch daily. MULTIVITAMI 0 Yes Take by Un mel N ORAL 5-10 mouth. ity of 15:26: [place] [address] Medical Branch thiamine 0 Yes 100mg Take 100 Univ ers (VITAMIN 5-10 mg by ity of B-1) 100 mg 15:26: mouth [place] tablet 43 daily. Medical Branch aspirin 81 2018-0 Yes 81mg Take 81 mg U nivers mg chewable 5-10 by mouth ity of tablet 15:26: daily. [place] [address] Medical Branch atorvastati 0 Yes 40mg Take 40 mg Univers n 40 mg 5-10 by mouth ity of tablet 15:26: at [place] 43 bedtime. Medical Branch furosemide 0 Yes 40mg Take 40 mg U nivers 40 mg 5-10 by mouth ity of tablet 15:26: daily. [place] [address] Medical Branch NaCl 0.9% 0 Yes 10mL Inject 10 Uni vers (NS) Soln 5-10 mL ity of 10 mL with 15:26: intravenou [place] sodium 43 sly once Medical chloride now. Branch 2.5 mEq/mL SolP 17.125 mEq insulin 2019-0 Yes [id number] 4U inject 4 U nivers lispro, 5-10 Units ity of human, 100 00:00: under the [place] unit/mL 00 skin 3 Medical injection (three) Branch times daily before meals. insulin 2018-0 Yes [id number] 4U inject 4 U nivers lispro, 5-10 Units ity of human, 100 00:00: under the [place] unit/mL 00 skin 3 Medical injection (three) Branch times daily before meals. insulin 2018-0 Yes [id number] 4U inject 4 U nivers lispro, 5-10 Units ity of human, 100 00:00: under the [place] unit/mL 00 skin 3 Medical injection (three) Branch times daily before meals. insulin 2019-0 Yes [id number] 4U inject 4 U nivers lispro, 5-10 Units ity of human, 100 00:00: under the [place] unit/mL 00 skin 3 Medical injection (three) Branch times daily before meals. insulin 2019-0 Yes [id number] 4U inject 4 U nivers lispro, 5-10 Units ity of human, 100 00:00: under the [place] unit/mL 00 skin 3 Medical injection (three) Branch times daily before meals. insulin 2019-0 Yes [id number] 4U inject 4 U nivers lispro, 5-10 Units ity of human, 100 00:00: under the [place] unit/mL 00 skin 3 Medical injection (three) Branch times daily before meals. Insulin 2019-0 Yes [id number] 18U inject Uni vers Glargine 5-10 18-24 ity of 100 unit/mL 00:00: Units [place] (3 mL) 00 under the Medical injection skin every Bran ch morning. insulin 2019-0 Yes [id number] 4U inject 4 U nivers lispro, 5-10 Units ity of human, 100 00:00: under the [place] unit/mL 00 skin 3 Medical injection (three) Branch times daily before meals. insulin 2019-0 Yes [id number] 4U inject 4 U nivers lispro, 5-10 Units ity of human, 100 00:00: under the [place] unit/mL 00 skin 3 Medical injection (three) Branch times daily before meals. insulin 2019-0 Yes [id number] 4U inject 4 U nivers lispro, 5-10 Units ity of human, 100 00:00: under the [place] unit/mL 00 skin 3 Medical injection (three) Branch times daily before meals. insulin 2019-0 Yes [id number] 4U inject 4 U nivers lispro, 5-10 Units ity of human, 100 00:00: under the [place] unit/mL 00 skin 3 Medical injection (three) Branch times daily before meals. insulin 2019-0 Yes [id number] 4U inject 4 U nivers lispro, 5-10 Units ity of human, 100 00:00: under the [place] unit/mL 00 skin 3 Medical injection (three) Branch times daily before meals. insulin 2019- No [id number] 4U inject 4 Univers lispro, 5-10 05-07 Units ity of human, 100 00:00: 00:00 under the [place] unit/mL 00 :00 skin 3 Medical injection (three) Branch times daily before meals. insulin 2019- No [id number] 4U inject 4 Univers lispro, 5-10 05-07 Units ity of human, 100 00:00: 00:00 under the [place] unit/mL 00 :00 skin 3 Medical injection (three) Branch times daily before meals. Insulin 2018- No [id number] 18U inject Un mel Glargine -08 24-11 18-24 ity of 100 unit/mL 00:00: 00:00 Units [place] (3 mL) 00 :00 under the Medical injection skin every Bran ch morning. folic Yes Take by Univers acid/vit B 3-08 mouth. ity of complex and 16:39: [facility] ( 29 Medical COMPLEX-VIT Branch RAZA C-FOLIC ACID ORAL) potassium Yes 20meq Take 20 Univ ers chloride 20 3-08 mEq by ity of mEq packet 16:39: mouth [place] 29 daily. Medical Branch folic Yes Take by Univers acid/vit B 3-08 mouth. ity of complex and 16:39: [facility] ( 29 Medical COMPLEX-VIT Branch RAZA C-FOLIC ACID ORAL) potassium Yes 20meq Take 20 Univ ers chloride 20 3-08 mEq by ity of mEq packet 16:39: mouth [place] 29 daily. Medical Branch Potassium Potassium Yes Anneliese 1 capsule Common Chloride Chloride Millender with food [facility] Tylenol # 3 Tylenol # 3 Yes Anneliese one tab Common [place]ender [facility] Vitamin D-3 Vitamin D-3 Yes Annelies[place] 2 capsule Common Millender [facility] Humalog Humalog Yes Anneliese as Common [place]ender directed [facility] Aspir-Low Aspir-Low Yes [place] 1 tablet Common Millender [facility] Namzaric Namzaric Yes Anneliese 1 Common Millender [facility] Zyprexa Zyprexa Yes Anneliese 1 tablet Comm on Millender [facility] Vitamin B-1 Vitamin B-1 Yes Anneliese 1 tablet Common Millender [facility] Multivitami Multivitami Yes Anneliese as Common n n Millender directed [facility] Lantus Lantus Yes Anneliese as Common Millender directed [facility] Lasix Lasix Yes Anneliese 1 tablet Common Millender [facility] Isosorbide Isosorbide Yes Anneliese 1 tablet Common Mononitrate Mononitrate Millender in the [facility] Lyrica Lyrica Yes Anneliese 1 capsule Commo n Millender [facility] Immunizations Ordered Filled Immunization Date Status Comments [facility] Immunization Name Name SARS-COV-2 COVID-19 2021-09-16 Completed Unive rsity of MODERNA VACCINE 00:00:00 [facility] SARS-COV-2 COVID-19 2021-09-16 Completed Unive rsity of MODERNA VACCINE 00:00:00 [facility] SARS-COV-2 COVID-19 2021-09-16 Completed Unive rsity of MODERNA VACCINE 00:00:00 [facility] SARS-COV-2 COVID-19 2021-09-16 Completed Unive rsity of MODERNA VACCINE 00:00:00 [facility] SARS-COV-2 COVID-19 2021-09-16 Completed Unive rsity of MODERNA VACCINE 00:00:00 [facility] SARS-COV-2 COVID-19 2021-08-17 Completed Unive rsity of MODERNA VACCINE 00:00:00 [facility] Influenza High Dose 2021-08-17 Completed Unive rsity of 00:00:00 [facility] SARS-COV-2 COVID-19 2021-08-17 Completed Unive rsity of MODERNA VACCINE 00:00:00 [facility] Influenza High Dose 2021-08-17 Completed Unive rsity of 00:00:00 [facility] SARS-COV-2 COVID-19 2021-08-17 Completed Unive rsity of MODERNA VACCINE 00:00:00 [facility] Branch Influenza High Dose 2021-08-17 Completed Unive rsity of 00:00:00 [facility] SARS-COV-2 COVID-19 2021-08-17 Completed Unive rsity of MODERNA VACCINE 00:00:00 [facility] Influenza High Dose 2021-08-17 Completed Unive rsity of 00:00:00 [facility] SARS-COV-2 COVID-19 2021-08-17 Completed Unive rsity of MODERNA VACCINE 00:00:00 [facility] Influenza High Dose 2021-08-17 Completed Unive rsity of 00:00:00 [facility] Zoster(Zostavax)( 2020-09-14 Completed Unive rsity of ingles) 00:00:00 [facility] Zoster(Zostavax)( 2020-09-14 Completed Unive rsity of ingles) 00:00:00 [facility] Zoster(Zostavax)( 2020-09-14 Completed Unive rsity of ingles) 00:00:00 [facility] Zoster(Zostavax)( 2020-09-14 Completed Unive rsity of ingles) 00:00:00 [facility] Zoster(Zostavax)( 2020-09-14 Completed Unive rsity of ingles) 00:00:00 [facility] Influenza High Dose 2020-07-13 Completed Unive rsity of 00:00:00 [facility] Influenza High Dose 2020-07-13 Completed Unive rsity of 00:00:00 [facility] Influenza High Dose 2020-07-13 Completed Unive rsity of 00:00:00 [facility] Influenza High Dose 2020-07-13 Completed Unive rsity of 00:00:00 [facility] Influenza High Dose 2020-07-13 Completed Unive rsity of 00:00:00 [facility] Influenza High Dose 2019-09-15 Completed Unive rsity of 00:00:00 [facility] Influenza High Dose 2019-09-15 Completed Unive rsity of 00:00:00 [facility] Influenza High Dose 2019-09-15 Completed Unive rsity of 00:00:00 [facility] Influenza High Dose 2019-09-15 Completed Unive rsity of 00:00:00 [facility] Influenza High Dose 2019-09-15 Completed Unive rsity of 00:00:00 [facility] Influenza Virus 2018-09-09 Completed Universit y of Vaccine 00:00:00 [facility] Influenza Virus 2018-09-09 Completed Universit y of Vaccine 00:00:00 [facility] Influenza Virus 2018-09-09 Completed Universit y of Vaccine 00:00:00 [facility] Influenza Virus 2018-09-09 Completed Universit y of Vaccine 00:00:00 [facility] Influenza Virus 2018-09-09 Completed Universit y of Vaccine 00:00:00 [facility] Influenza Virus 2018-09-09 Completed Universit y of Vaccine 00:00:00 [facility] Influenza Virus 2018-09-09 Completed Universit y of Vaccine 00:00:00 [facility] Influenza Virus 2018-09-09 Completed Universit y of Vaccine 00:00:00 [facility] Influenza Virus 2018-09-09 Completed Universit y of Vaccine 00:00:00 [facility] Influenza Virus 2018-09-09 Completed Universit y of Vaccine 00:00:00 [facility] Influenza Virus 2018-09-09 Completed Universit y of Vaccine 00:00:00 [facility] Influenza Virus 2018-09-09 Completed Universit y of Vaccine 00:00:00 [facility] Influenza Virus 2018-09-09 Completed Universit y of Vaccine 00:00:00 [facility] Influenza Virus 2018-09-09 Completed Universit y of Vaccine 00:00:00 [facility] Influenza Virus 2018-09-09 Completed Universit y of Vaccine 00:00:00 [facility] Influenza Virus 2018-09-09 Completed Universit y of Vaccine 00:00:00 [facility] Influenza Virus 2018-09-09 Completed Universit y of Vaccine 00:00:00 [facility] Influenza Virus 2018-09-09 Completed Universit y of Vaccine 00:00:00 [facility] Influenza Virus 2018-09-09 Completed Universit y of Vaccine 00:00:00 [facility] Influenza Virus 2018-09-09 Completed Universit y of Vaccine 00:00:00 [facility] Influenza Virus 2018-09-09 Completed Universit y of Vaccine 00:00:00 [facility] Influenza Virus 2018-09-09 Completed Universit y of Vaccine 00:00:00 [facility] Influenza Virus 2018-09-09 Completed Universit y of Vaccine 00:00:00 [facility] Pneumococcal 2016-11-02 Completed University o f Polysaccharide, [...] Diastolic blood 2022-04-17 03:35:00 77 [facility]Hg[facility] 2022-04-17 03:35:00 98 /min General acute hospital Oxygen saturation in 2022-04-17 03:35:00 99 /min [facility] Arterial blood by [facility] Pulse oximetry [place] Body temperature 2022-04-17 03:25:00 37.33 Priyanka [facility] Respiratory rate 2022-04-17 03:25:00 18 /min [facility] Body height 2022-04-17 03:25:00 170.2 cm [facility] acute hospital Body weight 2022-04-17 03:25:00 77.111 kg [facility] acute hospital BMI 2022-04-17 03:25:00 26.63 kg/m2 General acute hospital Systolic blood 2022-03-01 16:36:00 143 mm[Hg] Univer sity [facility] Diastolic blood 2022-03-01 16:36:00 80 mm[Hg] Unive rsity of pressure [place] [facility] Heart rate 2022-03-01 16:36:00 98 /min [facility] [place] [facility] Respiratory rate 2022-03-01 16:36:00 16 /min Univ ersity of [place] [facility] Oxygen saturation in 2022-03-01 16:36:00 97 /min University of Arterial blood by [facility] birdie Pulse oximetry Branch Body temperature 2022-03-01 11:42:00 36.94 Priyanka Univ ersity [facility] [place] [facility] Body height 2022-03-01 11:42:00 170.2 cm [facility] [place] [facility] Body weight 2022-03-01 11:42:00 77.111 kg [facility] [place] [facility] BMI 2022-03-01 11:42:00 26.63 kg/m2 [facility] [place] [facility] Systolic blood 2021-11-02 17:17:00 109 mm[Hg] Univer sity of pressure [place] [facility] Diastolic blood 2021-11-02 17:17:00 67 mm[Hg] Unive rsity of pressure [place] [facility] Heart rate 2021-11-02 17:17:00 84 /min [facility] [place] [facility] Body temperature 2021-11-02 17:17:00 36.44 Priyanka Univ ers[facility] [place] [facility] Respiratory rate 2021-11-02 17:17:00 18 /min Univ ers[facility] [place] [facility] Oxygen saturation in 2021-11-02 17:17:00 95 /min University of Arterial blood by [facility] Pulse oximetry Branch Body weight 2021-11-02 09:17:00 79.969 kg [facility] [place] [facility] BMI 2021-11-02 09:17:00 27.61 kg/m2 [facility] [place] [facility] Body height 2021-10-31 05:46:00 170.2 cm [facility] Systolic blood 2021-04-25 22:36:00 118 mm[Hg] [facility] Diastolic blood 2021-04-25 22:36:00 70 mm[Hg] [facility] Heart rate 2021-04-25 22:36:00 68 /min [facility] Respiratory rate 2021-04-25 22:36:00 18 /min [facility] Oxygen saturation in 2021-04-25 22:36:00 99 /min [facility] [place] [facility] oxim[facility] Body temperature 2021-04-25 15:42:00 36.44 Priyanka [facility] Body weight 2021-04-25 15:42:00 81.647 kg [facility] BMI 2021-04-25 15:42:00 27.37 kg/m2 [facility] Systolic blood 2020-06-26 10:00:00 124 mm[Hg] [facility] Diastolic blood 2020-06-26 10:00:00 78 mm[Hg] [facility] Respiratory rate 2020-06-26 10:00:00 18 /min [facility] Oxygen saturation in 2020-06-26 10:00:00 98 /min [facility] [place] [facility] Heart rate 2020-06-26 08:56:00 98 /min [facility] Body temperature 2020-06-26 08:56:00 37.17 Priyanka [facility] Body weight 2020-06-26 08:56:00 74.844 kg [facility] BMI 2020-06-26 08:56:00 25.09 kg/m2 [facility] Systolic blood 2020-06-26 10:00:00 124 mm[Hg] [facility] Diastolic blood 2020-06-26 10:00:00 78 mm[Hg] [facility] Respiratory rate 2020-06-26 10:00:00 18 /min [facility] Oxygen saturation in 2020-06-26 10:00:00 98 /min [facility] [place] [facility] Heart rate 2020-06-26 08:56:00 98 /min [facility] Body temperature 2020-06-26 08:56:00 37.17 Priyanka [facility] Body weight 2020-06-26 08:56:00 74.844 kg [facility] BMI 2020-06-26 08:56:00 25.09 kg/m2 [facility] Systolic blood 2020-05-24 15:47:29 166 mm[Hg] [facility] Diastolic blood 2020-05-24 15:47:29 89 mm[Hg] [facility] Heart rate 2020-05-24 15:47:29 86 /min [facility] Respiratory rate 2020-05-24 15:47:29 16 /min [facility] Oxygen saturation in 2020-05-24 15:47:29 97 /min [facility] blood by [facility] Pulse oximetry Branch Body temperature 2020-05-24 11:44:00 36.94 Priyanka [facility] Body height 2020-05-24 11:44:00 172.7 cm [facility] Body weight 2020-05-24 11:44:00 74.844 kg [facility] BMI 2020-05-24 11:44:00 25.09 kg/m2 [facility] Systolic blood 2020-05-24 15:47:29 166 mm[Hg] [facility] Diastolic blood 2020-05-24 15:47:29 89 mm[Hg] [facility] Heart rate 2020-05-24 15:47:29 86 /min [facility] Respiratory rate 2020-05-24 15:47:29 16 /min [facility] Oxygen saturation in 2020-05-24 15:47:29 97 /min [facility] blood by [facility] Pulse oximetry Branch Body temperature 2020-05-24 11:44:00 36.94 Priyanka [facility] Body height 2020-05-24 11:44:00 172.7 cm [facility] Body weight 2020-05-24 11:44:00 74.844 kg [facility] BMI 2020-05-24 11:44:00 25.09 kg/m2 [facility] Systolic blood 2020-03-24 02:31:00 127 mm[Hg] [facility] Diastolic blood 2020-03-24 02:31:00 72 mm[Hg] [facility] Heart rate 2020-03-24 02:31:00 69 /min [facility] Body temperature 2020-03-24 02:31:00 36.39 Priyanka [facility] Respiratory rate 2020-03-24 02:31:00 18 /min [facility] Oxygen saturation in 2020-03-24 02:31:00 97 /min [facility] by [facility] Pulse oximetry Branch Systolic blood 2020-03-23 21:35:00 100 mm[Hg] [facility] Diastolic blood 2020-03-23 21:35:00 59 mm[Hg] [facility] Heart rate 2020-03-23 21:35:00 79 /min [facility] Body temperature 2020-03-23 21:35:00 36.78 Priyanka [facility] Respiratory rate 2020-03-23 21:35:00 18 /min [facility] Oxygen saturation in 2020-03-23 21:35:00 99 /min [facility] by [facility] Pulse oximetry Branch Body weight 2020-03-23 09:41:00 76.613 kg [facility] BMI 2020-03-23 09:41:00 26.45 kg/m2 [facility] Body height 2020-03-23 03:43:00 170.2 cm [facility] Systolic blood 2020-03-21 20:55:00 128 mm[Hg] [facility] Diastolic blood 2020-03-21 20:55:00 61 mm[Hg] [facility] Heart rate 2020-03-21 20:55:00 75 /min [facility] Respiratory rate 2020-03-21 20:55:00 10 /min [facility] Oxygen saturation in 2020-03-21 20:55:00 98 /min [facility] Pulse oximetry Branch Body temperature 2020-03-21 20:03:00 37.83 Priyanka [facility] Body height 2020-03-21 20:03:00 170.2 cm [facility] Body weight 2020-03-21 20:03:00 76.204 kg [facility] BMI 2020-03-21 20:03:00 26.31 kg/m2 [facility] Systolic blood 2020-03-07 20:50:00 118 mm[Hg] [facility] Diastolic blood 2020-03-07 20:50:00 65 mm[Hg] [facility] Heart rate 2020-03-07 20:50:00 85 /min [facility] Body temperature 2020-03-07 20:50:00 36.39 Priyanka [facility] Respiratory rate 2020-03-07 20:50:00 18 /min [facility] Oxygen saturation in 2020-03-07 20:50:00 95 /min [facility] [place] [employer] Pulse oxim[facility] Branch Body height 2020-03-05 02:35:00 172.7 cm [facility] Body weight 2020-03-05 02:35:00 73.483 kg [facility] BMI 2020-03-05 02:35:00 24.63 kg/m2 [facility] Systolic blood 2020-03-02 15:49:00 122 mm[Hg] [facility] Diastolic blood 2020-03-02 15:49:00 81 mm[Hg] [facility] Heart rate 2020-03-02 15:49:00 89 /min [facility] Body temperature 2020-03-02 15:49:00 37.06 Priyanka [facility] Respiratory rate 2020-03-02 15:49:00 19 /min [facility] Oxygen saturation in 2020-03-02 15:49:00 96 /min [facility] [place] [employer] [facility] P[facility] Body height 2020-03-01 00:54:00 170.2 cm [facility] Body weight 2020-03-01 00:54:00 76.975 kg [facility] BMI 2020-03-01 00:54:00 26.58 kg/m2 [facility] Systolic blood 2020-01-17 21:08:00 116 mm[Hg] [facility] Diastolic blood 2020-01-17 21:08:00 78 mm[Hg] [facility] Heart rate 2020-01-17 21:08:00 88 /min [facility] acute hospital Body temperature 2020-01-17 21:08:00 36.72 Priyanka [facility] Respiratory rate 2020-01-17 21:08:00 18 /min [facility] Oxygen saturation in 2020-01-17 21:08:00 98 /min [facility] blood by [facility] Pulse oximetry [place] Body height 2020-01-16 06:21:00 172.7 cm [facility] acute hospital Body weight 2020-01-16 04:35:00 83.462 kg [facility] acute hospital BMI 2020-01-16 04:35:00 27.98 kg/m2 General acute hospital Procedures Procedure Date / Time Performing Clinician Source Performed CONSENT/REFUSAL FOR 2022-04-17 03:07:20 Doctor Unassigned, [facility] DIAGNOSIS AND TREATMENT [place] [facility] XR LUMBAR SPINE 2 VW 2022-03-01 14:18:00 Angelika Aguilar [facility] EXTERNAL PROVIDER RECORDS 2021-11-19 06:01:00 Doctor Unassigned, [facility] [place] [facility] POCT GLUCOSE (AUTOMATED) 2021-11-02 22:49:00 Aida Shah [facility] POCT GLUCOSE (AUTOMATED) 2021-11-02 17:06:00 Aida Shah [facility] POCT GLUCOSE (AUTOMATED) 2021-11-02 13:30:00 Aida Shah [facility] TROPONIN I 2021-11-02 09:29:00 Alexandra Hdz [facility] acute hospital BASIC METABOLIC PANEL 2021-11-02 09:29:00 Sridhar Gordon [facility] (NA, K, CL, CO2, GLUCOSE, Medica l Branch BUN, CREATININE, CA) CBC WITH DIFF 2021-11-02 09:29:00 [facility]-BNP 2021-11-02 09:29:00 Alexandra Hdz [facility] POCT GLUCOSE (AUTOMATED) 2021-11-02 01:27:00 AlyssaKeerthii Nilda [facility] POCT GLUCOSE (AUTOMATED) 2021-11-01 17:37:00 AlyssaAida [facility] POCT GLUCOSE (AUTOMATED) 2021-11-01 13:40:00 AlyssaAida [facility] POCT GLUCOSE (AUTOMATED) 2021-11-01 01:10:00 Alyssa Aida [facility] POCT GLUCOSE (AUTOMATED) 2021-10-31 22:28:00 Alyssa Aida Nilda [facility] POCT GLUCOSE (AUTOMATED) 2021-10-31 17:29:00 [facility] 2021-10-31 16:25:00 Alexandra Hdz [facility] acute hospital TRANSTHORACIC ECHO (TTE) 2021-10-31 15:53:00 Alexandra Hdz [facility] COMPLETE W/ CONTRAST Medical [facility] POCT GLUCOSE (AUTOMATED) 2021-10-31 13:39:00 Martha Drake [facility] TROPONIN I 2021-10-31 10:08:00 [facility] METABOLIC PANEL 2021-10-31 10:08:00 Julio Cesar [facility] (NA, K, CL, CO2, GLUCOSE, Medica l Branch BUN, CREATININE, CA) LIPID PANEL ([id number])(TOTAL 2021-10-31 10:08:00 Alexandra Hdz [facility] CHOLESTEROL, [facility] TRIGLYCERIDES, HDL) CBC WITH DIFF 2021-10-31 10:08:00 [facility] URINALYSIS 2021-10-31 10:08:00 [facility] N-TERMINAL PRO-BNP 2021-10-31 10:08:00 Alexandra Hdz [facility] TROPONIN I 2021-10-31 06:17:00 [facility]ST 1 VW 2021-10-31 01:30:56 Martha Drake [facility] LIPASE 2021-10-31 01:25:00 Martha Drake [facility] TROPONIN I 2021-10-31 01:25:00 Martha Drake [facility] COMP. METABOLIC PANEL 2021-10-31 01:25:00 Martha Drake [facility] ([id number]) Medical Branch CBC WITH DIFF 2021-10-31 01:25:00 Martha Drake [facility] GLYCOSYLATED HEMOGLOBIN 2021-10-31 01:25:00 [facility] PROTHROMBIN TIME / INR 2021-10-31 01:25:00 Martha Drake [facility] ACTIVATED PARTIAL 2021-10-31 01:25:00 Martha Drake [facility] N-TERMINAL PRO-BNP 2021-10-31 01:25:00 Martha Drake [facility] acute hospital COVID-19 (ID NOW RAPID 2021-10-31 01:25:00 Martha Drake [facility] TESTING) Medical Branch LAB ONLY COVID 2021-10-31 01:25:00 Martha Drake [facility] INTERPRETATION [facility] HB ECG ROUTINE & RHYTHM 2021-10-31 01:20:03 Martha Drake [facility] STRIP [facility] URINALYSIS 2021-04-25 21:01:00 Nallely Zhao [facility] acute hospital XR LUMBAR SPINE 2 VW 2021-04-25 18:41:00 Nallely Zhao [facility] XR HIPS 2 VW LEFT 2021-04-25 18:41:00 Nallely [facility] CONSENT/REFUSAL FOR 2021-04-25 15:43:06 Doctor Unassigned, [facility] DIAGNOSIS AND TREATMENT [place] [facility] CT CERVICAL SPINE WO 2020-06-26 09:35:01 Martha Drake [facility] CT LUMBAR SPINE WO 2020-06-26 09:35:01 Martha Drake [facility] CONTRAST [facility] CT THORACIC SPINE WO 2020-06-26 09:35:01 Martha Drake [facility] CONTRAST [facility] UNILATERAL DUPLEX SCAN OF 2020-05-24 14:53:40 [facility] Medical B ranch XR ANKLE 3+ VW LEFT 2020-05-24 13:22:26 Charanjit Heck [facility] acute hospital HEPATIC FUNCTION PANEL 2020-05-24 13:13:00 Charanjit Heck [facility] ([id number]) (ALB,T.PRO,BILI Medical Branch T,BU/BC,ALT,AST,ALK PHOS) BASIC METABOLIC PANEL 2020-05-24 13:13:00 Charanjit Heck [facility] (NA, K, CL, CO2, GLUCOSE, Medica l Branch BUN, CREATININE, CA) CBC WITH DIFFERENTIAL 2020-05-24 13:13:00 Charanjit Heck [facility] PROTHROMBIN TIME / INR 2020-05-24 13:13:00 Charanjit Heck [facility] ACTIVATED PARTIAL 2020-05-24 13:13:00 Charanjit Heck [facility] NOTICE OF PRIVACY 2020-05-24 11:38:26 Doctor Unassigned, [facility] PRACTICES [place] [facility] CONSENT/REFUSAL FOR 2020-05-24 11:35:52 Doctor Unacassie, [facility] DIAGNOSIS AND TREATMENT [place] [facility] POCT GLUCOSE (AUTOMATED) 2020-03-23 22:32:[address] [facility] [place] [place] [facility]SE (AUTOMATED) 2020-03-23 18:07:[address] [facility] [place] [place] PO[facility] GLUCOSE (AUTOMATED) 2020-03-23 14:57:00 Jamel Flores [facility] ECHO ROUTINE W/DOPPLER 2020-03-23 13:33:57 [facility] COLOR [facility] EKG-12 LEAD 2020-03-23 12:56:59 Jamel Flores [facility] [place] MAGNESIUM 2020-03-23 11:15:00 Bodani, [facility] TROPONIN I 2020-03-23 [facility]:15[facility]00 [facility] MET[facility]OLIC PANEL 2020-03-23 11:15:00 Jerome [facility] (NA, K, CL, CO2, GLUCOSE, Medica l Branch BUN, CREATININE, CA) PROTHROMBIN TIME / INR 2020-03-23 11:15:00 Tereza Cano [facility] ACTIVATED PARTIAL 2020-03-23 11:15:00 Jerome [facility] EKG-12 LEAD 2020-03-23 07:51:19 Jamel Flores [facility] MAGNESIUM 2020-03-23 05:55:00 [facility] TROPONIN I 2020-03-23 05:55:00 [facility] BASIC METABOLIC PANEL 2020-03-23 05:55:00 [facility] (NA, K, CL, CO2, GLUCOSE, Medica l Branch BUN, CREATININE, CA) LIPID PANEL ([id number])(TOTAL 2020-03-23 05:55:00 Tereza Cano [facility] CHOLESTEROL, [facility] TRIGLYCERIDES, HDL) PROTHROMBIN TIME / INR 2020-03-23 02:55:00 Sallie Eckert [facility] ACTIVATED PARTIAL 2020-03-23 02:55:00 Babar [facility] XR CHEST 2 VW 2020-03-23 01:52:37 Esteban Singletary [facility] CORONAVIRUS COVID-19 2020-03-23 00:50:00 Esteban Singletary [facility] TESTING [facility] FERRITIN SERUM 2020-03-22 23:36:00 [facility] TROPONIN I 2020-03-22 23:36:00 Esteban Singletary [facility] COMP. METABOLIC PANEL 2020-03-22 23:36:00 Esteban Singletary [facility] ([id number]) Medical Branch IRON PANEL 2020-03-22 23:36:00 Jerome [facility] CBC WITH DIFFERENTIAL 2020-03-22 23:36:00 Esteban Singletary [facility] N-TERMINAL PRO-BNP 2020-03-22 23:36:00 Esteban Singletary [facility] EKG-12 LEAD 2020-03-22 23:08:53 Danielle [facility] EKG-12 LEAD 2020-03-22 23:08:15 Danielle [facility] XR CHEST 1 VW 2020-03-21 20:42:35 Myles Harry [facility] LACTIC ACID WHOLE BLOOD 2020-03-21 20:38:00 Myles Harry [facility] LIPASE 2020-03-21 20:19:00 Myles Harry [facility] TROPONIN I 2020-03-21 20:19:00 Myles Harry [facility] COMP. METABOLIC PANEL 2020-03-21 20:19:00 Myles Harry [facility] ([id number] PROTHROMBIN TIME / INR 2020-03-21 20:19:00 Myles Harry [facility] N-TERMINAL PRO-BNP 2020-03-21 20:19:00 Myles Harry [facility] acute [facility] CORONAVIRUS COVID-19 2020-03-21 20:19:00 Myles Harry [facility] EKG-12 LEAD 2020-03-21 20:11:28 Myles Harry [facility] POCT GLUCOSE (AUTOMATED) 2020-03-07 20:56:00 Sarah Adorno [facility] POCT GLUCOSE (AUTOMATED) 2020-03-07 15:34:00 Julio Cesar [email or web address] [facility] POCT GLUCOSE (AUTOMATED) 2020-03-07 12:56:00 [facility] URIC ACID 2020-03-07 10:14:00 Holland Briscoe [facility] TROPONIN I 2020-03-07 10:14:00 Lulu Harris [facility] BASIC METABOLIC PANEL 2020-03-07 10:14:00 Edionrosalio [facility] (NA, K, CL, CO2, GLUCOSE, Medica l Branch BUN, CREATININE, CA) CBC WITH DIFFERENTIAL 2020-03-07 10:14:00 Julio Cesar [facility] N-TERMINAL PRO-BNP 2020-03-07 10:14:[facility]OMATED) 2020-03-06 21:16:00 Edionrosalio [facility] POCT GLUCOSE (AUTOMATED) 2020-03-06 16:10:00 Edionrosalio [facility] POCT GLUCOSE (AUTOMATED) 2020-03-06 12:38:00 Edionrosalio [facility] TROPONIN I 2020-03-06 08:51:[facility]OLIC PANEL 2020-03-06 08:51:00 Edionrosalio [facility] (NA, K, CL, CO2, GLUCOSE, Medica l Branch BUN, CREATININE, CA) CBC WITH DIFFERENTIAL 2020-03-06 08:51:00 Edtylerrosalio [facility] POCT GLUCOSE (AUTOMATED) 2020-03-06 01:16:00 Edconsuelo [facility] TROPONIN I 2020-03-05 23:25:00 Edconsuelo [facility] POCT GLUCOSE (AUTOMATED) 2020-03-05 21:14:00 Edionrosalio [facility] POCT GLUCOSE (AUTOMATED) 2020-03-05 16:39:00 Edionrosalio [facility] POCT GLUCOSE (AUTOMATED) 2020-03-05 12:47:00 Edionrosalio [facility] TROPONIN I 2020-03-05 09:50:00 Edconsuelo [facility] BASIC METABOLIC PANEL 2020-03-05 09:50:00 Edionrosalio [facility] (NA, K, CL, CO2, GLUCOSE, Medica l Branch BUN, CREATININE, CA) CBC WITH DIFFERENTIAL 2020-03-05 09:50:00 [facility] 2020-03-05 00:36:54 [facility] 2020-03-05 00:31:03 Bobo Urrutia [facility] CORONAVIRUS COVID-19 2020-03-05 00:03:00 Charanjit Heck [facility] TESTING [facility] XR CHEST 1 VW 2020-03-04 23:58:59 Charanjit Heck [facility] LIPASE 2020-03-04 23:29:00 Charanjit Heck [facility] TROPONIN I 2020-03-04 23:29:00 Charanjit Heck [facility] HEPATIC FUNCTION PANEL 2020-03-04 23:29:00 Charanjit Heck [facility] ([id number]) (ALB,T.PRO,BILI Medical Branch T,BU/BC,ALT,AST,ALK PHOS) BASIC METABOLIC PANEL 2020-03-04 23:29:00 Charanjit Heck [facility] (NA, K, CL, CO2, GLUCOSE, Medica l Branch BUN, CREATININE, CA) CBC WITH DIFFERENTIAL 2020-03-04 23:29:00 Charanjit Heck [facility] PROTHROMBIN TIME / INR 2020-03-04 23:29:00 Charanjit Heck [facility] ACTIVATED PARTIAL 2020-03-04 23:29:00 [facility] N-TERMINAL PRO-BNP 2020-03-04 23:29:00 Charanjit Heck [facility] EKG-12 LEAD 2020-03-04 23:15:42 Charanjit Heck [facility] EKG-12 LEAD 2020-03-04 23:10:23 Charanjit Heck [facility] EMERGENCY DEPARTMENT 2020-03-04 05:01:00 Doctor Unassigned, [facility] DOCUMENTS [place] [facility] POCT GLUCOSE (AUTOMATED) 2020-03-02 15:52:00 Lulu Harris [facility] POCT GLUCOSE (AUTOMATED) 2020-03-02 12:39:00 Lulu Harris [facility] MAGNESIUM 2020-03-02 08:57:00 Carolyn [facility] BASIC METABOLIC PANEL 2020-03-02 08:57:00 Carolyn [facility] (NA, K, CL, CO2, GLUCOSE, Medica l Branch BUN, CREATININE, CA) N-TERMINAL PRO-BNP 2020-03-02 08:57:00 Carolyn [facility] POCT GLUCOSE (AUTOMATED) 2020-03-01 20:39:00 Lulu Harris [facility] MAGNESIUM 2020-03-01 08:43:00 Steven [facility] TROPONIN I 2020-03-01 08:43:00 Carolyn [facility] BASIC METABOLIC PANEL 2020-03-01 08:43:00 Lulu Harris [facility] (NA, K, CL, CO2, GLUCOSE, Medica l Branch BUN, CREATININE, CA) CBC WITH DIFFERENTIAL 2020-03-01 08:43:00 Steven Lulu [facility] N-TERMINAL PRO-BNP 2020-03-01 08:43:00 Carolyn [facility] VITAMIN B12, LEVEL 2020-03-01 03:49:00 Carolyn [facility] FOLATE 2020-03-01 03:49:00 Carolyn [facility] SEDIMENTATION RATE 2020-03-01 03:49:00 Carolyn [facility] POCT GLUCOSE (AUTOMATED) 2020-03-01 03:39:00 Lulu Harris [facility] PHOSPHORUS 2020-03-01 02:28:00 Steven [facility] URIC ACID 2020-03-01 02:28:00 Carolyn [facility] TROPONIN I 2020-03-01 02:28:00 Carolyn [facility] HEPATIC FUNCTION PANEL 2020-03-01 02:28:00 Carolyn [facility] ([id number]) (ALB,T.PRO,BILI Medical Branch T,BU/BC,ALT,AST,ALK PHOS) PROTHROMBIN TIME / INR 2020-03-01 02:28:00 Ivory Leon [facility] N-TERMINAL PRO-BNP 2020-03-01 02:28:00 Lulu Harris [facility] PROCALCITONIN 2020-03-01 02:28:00 Carolyn [facility] EKG-12 LEAD 2020-03-01 01:54:29 [facility]yn [facility] EKG-12 LEAD 2020-02-29 23:16:21 Bobo Urrutia [facility] XR CHEST 1 VW COVID 2020-02-29 23:14:25 Bobo Urrutia [facility] EKG-12 LEAD 2020-02-29 23:13:50 Bobo Urrutia [facility] LACTIC ACID WHOLE BLOOD 2020-02-29 22:21:00 Bobo Urrutia [facility] CORONAVIRUS COVID-19 2020-02-29 22:20:00 Bobo Urrutia [facility] CREATINE KINASE 2020-02-29 22:14:00 [facility]yn [facility] URIC ACID 2020-02-29 22:14:00 [facility]yn [facility] LIPASE 2020-02-29 22:14:00 Bobo Urrutia [facility] MAGNESIUM 2020-02-29 22:14:00 Carolyn [facility] TROPONIN I 2020-02-29 22:14:00 Bobo Urrutia [facility] THYROID STIMULATING 2020-02-29 22:14:00 Carolyn [facility] HORMONE [facility] BASIC METABOLIC PANEL 2020-02-29 22:14:00 Bobo Urrutia [facility] (NA, K, CL, CO2, GLUCOSE, Medica l Branch BUN, CREATININE, CA) CBC WITH DIFFERENTIAL 2020-02-29 22:14:00 Bobo Urrutia [facility] GLYCOSYLATED HEMOGLOBIN 2020-02-29 22:14:00 Ivory Leon [facility] (A1C) [facility] N-TERMINAL PRO-BNP 2020-02-29 22:14:00 Ivory Leon [facility] EKG-12 LEAD 2020-02-29 21:59:12 [facility] 2020-02-29 21:48:49 [facility] 2020-02-29 05:01:00 Doctor Unassigned, [facility] DOCUMENTS [place] [facility] POCT GLUCOSE (AUTOMATED) 2020-01-17 18:15:00 Julio Cesar [facility] TROPONIN I 2020-01-17 16:31:00 Julio Cesar [facility] ACTIVATED PARTIAL 2020-01-17 16:31:00 Carolyn [facility] POCT GLUCOSE (AUTOMATED) 2020-01-17 11:56:00 Julio Cesar [facility] TROPONIN I 2020-01-17 09:52:00 Julio Cesar [facility] BASIC METABOLIC PANEL 2020-01-17 09:52:00 [facility] (NA, K, CL, CO2, GLUCOSE, Medica l Branch BUN, CREATININE, CA) CBC WITH DIFFERENTIAL 2020-01-17 09:52:00 [facility] 2020-01-17 09:52:00 Julio Cesar [facility] POCT GLUCOSE (AUTOMATED) 2020-01-16 23:59:00 Julio Cesar [facility] EKG-12 LEAD 2020-01-16 22:15:50 Julio Cesar [facility] TROPONIN I 2020-01-16 20:04:00 Julio Cesar [facility] ACTIVATED PARTIAL 2020-01-16 20:04:00 Ayo Scruggs [facility] POCT GLUCOSE (AUTOMATED) 2020-01-16 17:05:00 Julio Cesar [facility] POCT GLUCOSE (AUTOMATED) 2020-01-16 13:38:00 Sarah Adorno [facility] TROPONIN I 2020-01-16 11:11:00 Ramónconsuelo [facility] LIPID PANEL (01970)(TOTAL 2020-01-16 11:11:00 Sarah Adorno [facility] CHOLESTEROL, [facility] TRIGLYCERIDES, HDL) ACTIVATED PARTIAL 2020-01-16 11:11:00 Julio Cesar [facility] CRITICAL CARE 2020-01-16 05:48:18 Umang Charanjit [facility] XR CHEST 1 VW 2020-01-16 04:46:44 Umang Charanjit [facility] TROPONIN I 2020-01-16 04:38:[facility] 2020-01-16 04:38:00 Charanjit Heck [facility] ([id number]) (ALB,T.PRO,BILI Medical Branch T,BU/BC,ALT,AST,ALK PHOS) BASIC METABOLIC PANEL 2020-01-16 04:38:00 Umang Charanjit [facility] (NA, K, CL, CO2, GLUCOSE, Medica l Branch BUN, CREATININE, CA) CBC WITH DIFFERENTIAL 2020-01-16 04:38:00 [facility]OGLOBIN 2020-01-16 04:38:00 [facility] PROTHROMBIN TIME / INR 2020-01-16 04:38:00 Charanjit Heck [facility] ACTIVATED PARTIAL 2020-01-16 04:38:00 Umang [facility] N-TERMINAL PRO-BNP 2020-01-16 04:38:00 Charanjit Heck [facility] EKG-12 LEAD 2020-01-16 04:37:48 Umang Charanjit [facility] EKG-12 LEAD 2020-01-16 04:35:35 Umang Charanjit [facility] AUTHORIZATION FOR RELEASE 2019-07-12 05:01:00 Doctor Unassigned, [facility] [place] [facility] Encounters Start End Encounter Admission Attending Care Care Encounter Source Date/Time Date/Time Type Type Clinicians Facility Department ID 2022-03-06 Outpatient [facility] [id number] OR 08:51:10 [id number] Health 2021-12-16 Inpatient SERA Villavicencio [facility] [id number] [facility] 11:30:00 [facility] 2021-12-[address] [facility] [id number] Common 09:19:01 [facility] 2021-12-11 Outpatient Lester, [facility] [id number] Common 14:38:21 Anneliese [facility] 2021-12-11 [facility] [id number] Common 11:50:18 Anneliese [facility] 2021-09-16 Emergency [facility] [id number] Univers 00:23:[facility] 2021-09-13 Emergency [facility] [id number] Univers 11:42:[address] [facility] [place] [place] 2021-09-13 Emergency [facility] [id number] Univers 05:40:[address] [facility] [place] [place] 2022-04-16 2022-04-16 [facility] [id number] Univers 22:29:00 23:27:[address] [facility] [place] [place] 2022-04-16 2022-04-16 [facility] [id number] Univers 22:29:00 23:27:00 Luz Kumar WYACONDA 350.1.13.10 i ty [facility] 4.2.7.2.686 [facility] [id number] [facility] 084 Branch 2022-03-05 2022-03-10 [id number] 06:12:00 22:30:00 BRODIE 2022-03-01 2022-03-01 Emergency X LAUREN [facility] ERT [id number] Univers 06:52:00 12:04:[address] [facility] [place] [place] 2022-03-01 2022-03-01 [facility] 1.2.840.114 [id number] Univers 06:52:00 12:04:00 Angelika RAMSEY 350.1.13.10 [place] [id number] [facility] 084 Branch 2021-12-25 2021-12-25 Inpatient [facility] [id number] [place] 00:00:00 00:00:00 MOHAMMED [address] 2021-12-19 2021-12-25 Inpatient LAUREN, [facility] [id number] [place] 00:00:00 00:00:00 JAYSON [address] 2021-12-24 2021-12-24 ambulatory STLMLC STLMLC [id number] Common 00:00:00 00:00:00 [facility] 2021-12-20 2021-12-20 Inpatient ATTAR, [facility] [id number] [place] 00:00:00 00:00:00 M[address]AMMED [address] 2021-12-17 2021-12-17 ambulatory STLMLC STLMLC [id number] Common 00:00:00 00:00:00 [facility] 2021-12-16 2021-12-16 ambulatory STLMLC STLMLC [id number] Common 00:00:00 00:00:00 [facility] 2021-11-19 2021-11-19 Orders Doctor ROBERT 1.2.840.114 [id number] Univers 00:00:00 00:00:00 Only Unassigned, ASHLEIGH 350.1.13.10 [facility] 4.2.7.2.686 [place] [phone] [facility] 009 Branch 2021-11-04 2021-11-04 Transition SHAREE Maria 1.2.840.114 [id number] Univers 00:00:00 00:00:00 of Care Supa GREWAL 350.1.13.10 it[place] [id number] [facility] 403 Branch 2021-10-30 2021-11-02 Inpatient [address]SSA [facility] [id number] Univers 19:14:00 18:15:00 AIDA ity of [facility] 2021-10-30 2021-11-02 Hospital Martha Drake [facility] 1.2.840. 114 [id number] Univers 19:14:00 18:15:00 Encounter AlyssaDenilsonAida ROXY 350.1.13.10 ity [facility] 4.2.7.2.686 [facility] [id number] [facility] 081 Branch 2021-05-17 2021-05-17 Letter PcpROBERT 1.2.840.114 [id number] Univers 00:00:00 00:00:00 (Out) Patient ASHLEIGH 350.1.13.10 it y of [facility] 4.2.7.2.686 [place] Have A [id number] [facility] 019 Branch 2021-04-25 2021-04-25 Emergency Cece, TRAUMA [id number] [id number] Univers 10:43:00 17:38:00 [facility] 350.1.13.10 i ty of [facility] 4.2.7.2.686 [facility] [id number] [facility] 014 Branch 2020-06-26 2020-06-26 Emergency [facility] 1.2.515.035 [id number] Univers 03:50:00 06:45:00 Martha Ramsey 350.1.13.10 ity of [place] 4.2.7.2.686 [facility] [id number] [facility] 084 Branch 2020-06-26 2020-06-26 [facility] [id number] 03:50:00 06:45:00 Martha Ramsey 350.1.13.10 [place] 4.2.7.2.686 [place] [id number] 08 2020-05-24 2020-05-24 [facility] 1.2.897.604 [id number] Univers 06:40:47 10:54:00 Charanjit Ramsey 350.1.13.10 i ty of [place] 4.2.7.2.686 [facility] [id number] [facility] 084 Branch 2020-05-24 2020-05-24 [facility] [id number] 06:40:47 10:54:00 Charanjit Ramsey 350.1.13.10 [place] 4.2.7.2.686 [place] [id number] [facility] 2020-03-29 2020-03-29 Letter Flores Jamel Gambino 1.2.840.114 [id number] [facility] 00:00:00 00:00:00 (Out) T Ashleigh 350.1.13.10 it y of [facility] 4.2.7.2.686 [place] [phone] [address] 2020-03-29 2020-03-29 Letter Jamel Flores 1.2.840.114 [id number] 00:00:00 00:00:00 (Out) T Ashleigh 350.1.13.10 [facility] 4.2.7.2.686 [id number] [facility] 2020-03-26 2020-03-26 Transition Sharee George 1.2.840.114 [id number] Univers 00:00:00 00:00:00 of Care Sherrell Grewal 350.1.13.10 it [id number] [address] 2020-03-26 2020-03-26 Transition Sharee George 1.2.840.114 [id number] 00:00:00 00:00:00 of Care Sherrell Grewal 350.1.13.10 [place] 4.2.7.2.686 [id number] 2020-03-22 2020-03-23 Emergency Sallie Eckert 1.2.840. 114 [id number] [facility] 18:02:47 21:55:00 Jamel Flores 350.1.13.10 ity [facility] 4.2.7.2.686 [place] [id number] [address] 2020-03-22 2020-03-23 Outpatient X JAMEL FLORES [facility] [id number] [facility] 18:02:47 21:55:00 ity [facility] 2020-03-21 2020-03-21 Emergency Kamryn [facility] 1.2.840.114 [id number] Univers 15:02:08 17:16:00 Mylesazra Ramsey 350.1.13.10 i ty of [place] 4.2.7.2.686 [facility] [id number] [address] 2020-03-21 2020-03-21 Emergency X KAMRYN [facility] ERT [id number] Univers 15:02:08 17:16:00 MYLES ity of [facility] 2020-03-13 2020-03-13 Outpatient Raju_P [facility] [id number] [place] 05:24:00 05:24:00 [facility] 2020-03-08 2020-03-08 Transition Sharee Cool 1.2.840.114 [id number] Univers 00:00:00 00:00:00 of Care Prema Grewal 350.1.13.10 i [place] [id number] [address] 2020-03-04 2020-03-07 [facility] Charanjit Heck [facility] 1.2.840.1 14 [id number] Univers 18:01:05 18:00:00 Encounter Sarah Adorno 350.1.13.10 ity of [place] 4.2.7.2.686 [facility] [id number] [address] 2020-03-04 2020-03-07 Inpatient X JULIO CESAR [facility] ZEFERINO [id number] Univers 18:01:05 18:00:00 SARAH leon of [facility] 2020-03-03 2020-03-03 Transition Sharee Silva 1.2.840.114 [id number] Univers 00:00:00 00:00:00 of Care Isatu Twan 350.1.13.10 it [id number] [address] 2020-02-29 2020-03-02 [facility] Bobo Urrutia [facility] 1.2.840.11 [id number] Univers 16:53:09 12:18:00 Encounter Lulu Harris 350.1.13.10 it[place] [id number] [facility] 081 Branch 2020-02-29 2020-03-02 Inpatient X STEVEN [facility] ZEFERINO [id number] Univers 16:53:09 12:18:[address] [facility] [place] 2020-02-15 2020-02-15 Outpatient [facility] [id number] Univers 11:30:00 11:30:[address] [facility] [place] 2020-02-15 2020-02-15 [facility]ici [facility] 1.2.840.114 [id number] Univers 08:13:42 08:43:42 ne Visit Rosemary [place] 350.1.13.10 [place], [facility] [id number] [place] [address] Building 2020-01-18 2020-01-18 Transition Sharee Harvey 1.2.840.114 [id number] Univers 00:00:00 00:00:00 of Care Ana M Grewal 350.1.13.10 it y of [place] [id number] [facility] 403 Branch 2020-01-15 2020-01-17 [facility] Charanjit Heck [facility] 1.2.840.1 14 [id number] Univers 22:33:37 16:58:00 Encounter Sarah Adorno 350.1.13.10 it[place] of [place] [id number] [address] 2020-01-15 2020-01-17 Outpatient X JULIO CESAR [facility] ZEFERINO [id number] Univers 22:33:37 16:58:00 SARAH leon [facility] 2019-10-07 2019-10-07 [facility] [id number] Common 10:48:00 10:48:00 [facility] 2019-10-05 2019-10-05 Out[facility] [id number] Common 16:06:00 16:06:00 [facility] 2019-07-27 2019-07-27 Refill Chava ORCSEAR 1.2.840.114 [id number] Univers 00:00:00 00:00:00 Rosemary Ramsey 350.1.13.10 i [place] [id number] [place]ical n[place] 220 Branch [facility] 2019-07-12 2019-07-12 [facility] [id number] Common 16:24:00 16:24:[address] [facility] [address] [facility] 2019-07-12 2019-07-12 Orders Doctor ROBERT 1.2.840.114 [id number] Univers 00:00:00 00:00:00 Only Unassigned, ASHLEIGH 350.1.13.10 ity of [place] [facility] 4.2.7.2.686 [place] [id number] [facility] 009 [place] 2019-07-06 2019-07-06 Out[facility] [id number] Common 14:00:00 14:00:[address] [facility] [address] [facility] Results Test Description Test Time Test Comments Results Result Comments Source SARS-CoV-2 (COVID-19) RNA [Presence] in Respiratory sp ecimen by 2021-12-20 07:04:48 ERI with probe detection Test Item Value Reference Range Interpretation Comme nts SARS-CoV-2 (COVID-19) RNA [Presence] in Respiratory Not detected No t-Detected specimen by ERI with probe detection (test code = 64074-9) 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 (test code = 53305-1) Whether the patient has symptoms related to condition of interest (test code = 08397-2) Patient was hospitalized because of this condition (test code = 74665-5) Whether the patient was admitted to intensive care unit (ICU) for condition of interest (test code = 45516-5) Whether patient resides in a congregate care setting (test code = 23157-4) POCT GLUCOSE (AUTOMATED)2021-11-02 22:57:12 Test Item Value Reference Range Interpretation Comments POCT GLU (test code = 6393486415) 224 mg/dL 70-110 H Lab Interpretation (test code = Abnormal 11066-8) [facility] [id number] 22:37:57 Test Item Value Reference Range Interpretation Comments Lab Interpretation (test code = Abnormal 05504-2) [facility] GLUCOSE (AUTOMATED)2021-11-02 17:43:02 Test Item Value Reference Range Interpretation Comments POCT GLU (test code = 9986211948) 264 mg/dL 70-110 H Lab Interpretation (test code = Abnormal 34831-0) [facility] [id number] 15:07:47 Test Item Value Reference Interpretation Comments Range TROPONIN I (test 0.064 ng/mL See_Comment H [Automated code = 6009783835) message] The system which generated this result [...] biotin. Lab Interpretation Abnormal (test code = 32597-7) [facility] [id number] 15:04:26 Test Item Value Reference Range Interpretation Comments NT-proBNP (test code 800 pg/mL See_Comment H [Autom ated = 2422433092) message] The system which generated this result transmitted reference range : <=450. The reference range was not used to interpret this result as normal/abnormal . ALYSSA (test code = ALYSSA) Biotin has been reported to cause a negative bias, interpret results relative to patient's use of biotin. Lab Interpretation Abnormal (test code = 97386-1) [facility] GLUCOSE (AUTOMATED)2021-11-02 13:36:38 Test Item Value Reference Range Interpretation Comments POCT GLU (test code = 8403054136) 185 mg/dL 70-110 H Lab Interpretation (test code = Abnormal 99302-8) [facility] METABOLIC PANEL (NA, K, CL, CO2, GLUCOSE, BUN, CREATININE, CA)2021-11-02 10:26:43 Test Item Value Reference Range Interpretation Comments NA (test code = 136 mmol/L 135-145 1106513550) K (test code = 4.0 mmol/L 3.5-5.0 2526848915) CL (test code = 99 mmol/L 98-108 0273576897) CO2 TOTAL (test code = 27 mmol/L 23-31 2765975441) AGAP (test code = 2-16 9330389833) BUN (test code = 30 mg/dL 7-23 H 0391450789) GLUCOSE (test code = 165 mg/dL 70-110 H 3359935313) CREATININE (test code = 1.42 mg/dL 0.60-1.25 H 4211024676) CALCIUM (test code = 9.5 mg/dL 8.6-10.6 1794322431) eGFR (test code = mL/min/1.73m2 0656424063) ALYSSA (test code = ALYSSA) Association of [...] tests). Lab Interpretation Abnormal (test code = 81332-4) [facility] WITH [id number] 10:01:58 Test Item Value Reference Range Interpretation [...] RDW-SD (test code = 39.8 fL 38.5-51.6 66115-9) RDW-CV (test code = 11.5 % 12.1-15.4 L 788-0) PLT (test code = See_Comment [Automated 777-3) message] The sy stem which generated this result transmitted reference range : 150 - 328 10*3/ ?L. The reference r corey was not used to interpret this result as normal/abnormal . MPV (test code = 10.5 fL 9.8-13.0 21214-6) NRBC/100 WBC (test See_Comment [Automat ed code = 6617700630) message] The system which generated this result transmitted reference range : 0.0 - 10.0 /100 WBCs. The refer ence range was not u sed to interpret th is result as normal/abnormal . NRBC x10^3 (test code <0.01 See_Comment [Auto mated = 8094056718) message] The s ystem which generated this result transmitted reference range : 10*3/?L. The reference range was not used to interpret this result as normal/abnormal . GRAN MAT (NEUT) % 59.3 % (test code = 770-8) IMM GRAN % (test code 0.30 % = 7291488678) LYMPH % (test code = 25.0 % 736-9) MONO % (test code = 10.7 % 5905-5) EOS % (test code = 4.1 % 713-8) BASO % (test code = 0.6 % 706-2) GRAN MAT x10^3(ANC) 4.19 10*3/uL 1.99-6.95 (test code = 7119547951) IMM GRAN x10^3 (test <0.03 0.00-0.06 code = 4231703131) LYMPH x10^3 (test code 1.77 10*3/uL 1.09-3.23 = 731-0) MONO x10^3 (test code 0.76 10*3/uL 0.36-1.02 = 742-7) EOS x10^3 (test code = 0.29 10*3/uL 0.06-0.53 711-2) BASO x10^3 (test code 0.04 10*3/uL 0.01-0.09 = 704-7) Lab Interpretation Abnormal (test code = 33521-7) [facility] GLUCOSE (AUTOMATED)2021-11-02 01:29:56 Test Item Value Reference Range Interpretation Comments POCT GLU (test code = 2666919105) 167 mg/dL 70-110 H Lab Interpretation (test code = Abnormal 72677-9) [facility] GLUCOSE (AUTOMATED)2021-11-01 17:40:19 Test Item Value Reference Range Interpretation Comments POCT GLU (test code = 7191694911) 193 mg/dL 70-110 H Lab Interpretation (test code = Abnormal 09332-7) [facility] GLUCOSE (AUTOMATED)2021-11-01 13:44:28 Test Item Value Reference Range Interpretation Comments POCT GLU (test code = 2873105736) 200 mg/dL 70-110 H Lab Interpretation (test code = Abnormal 87051-8) [facility] GLUCOSE (AUTOMATED)2021-11-01 01:38:43 Test Item Value Reference Range Interpretation Comments POCT GLU (test code = 3559615065) 177 mg/dL 70-110 H Lab Interpretation (test code = Abnormal 73374-2) [facility] GLUCOSE (AUTOMATED)2021-10-31 22:39:43 Test Item Value Reference Range Interpretation Comments POCT GLU (test code = 7990736690) 174 mg/dL 70-110 H Lab Interpretation (test code = Abnormal 96612-6) [facility] GLUCOSE (AUTOMATED)2021-10-31 17:40:22 Test Item Value Reference Range Interpretation Comments POCT GLU (test code = 9406953619) 224 mg/dL 70-110 H Lab Interpretation (test code = Abnormal 24028-9) [facility] [id number] 17:14:58 Test Item Value Reference Interpretation Comments Range TROPONIN I (test 0.080 ng/mL See_Comment H [Automated code = 8345592466) message] The system which generated this result [...] biotin. Lab Interpretation Abnormal (test code = 79043-6) [facility] [id number] 15:14:03 Test Item Value Reference Range Interpretation Comments NT-proBNP (test code 474 pg/mL See_Comment H [Autom ated = 1347863451) message] The system which generated this result transmitted reference range : <=450. The reference range was not used to interpret this result as normal/abnormal . ALYSSA (test code = ALYSSA) Biotin has been reported to cause a negative bias, interpret results relative to patient's use of biotin. Lab Interpretation Abnormal (test code = 51589-1) [facility] HospitalLIPID PANEL (37800)(TOTAL CHOLESTEROL, TRIGLYCERIDES, HDL)2021-10-31 15:05:19 Test Item Value Reference Range Interpretation Comments CHOL (test code = 101 mg/dL 120-200 L 1679965414) HDL (test code = 36 mg/dL >40 L 7459808812) HDLC RATIO (test code = See_Comment [Au tomated message] 1477691956) The system [employer] generated this result transmit diamante reference range : <=5.0. The refe rence range was not u sed to interpret th is result as normal/abnormal . TRIG (test code = 143 mg/dL 30-170 7874176960) LDL CHOL (test code = 36 mg/dL See_Comment [Auto mated message] 61906-7) The system [employer] generated this result transmit diamante reference range : <=160. The refe rence range was not u sed to interpret th is result as normal/abnormal . VLDL (test code = 29 mg/dL 5-60 1822193682) Lab Interpretation (test Abnormal code = 87348-6) [facility])2021-10-31 13:44:00 Test Item Value Reference Range Interpretation Comments POCT GLU (test code = 2102521205) 150 mg/dL 70-110 H Lab Interpretation (test code = Abnormal 50187-9) [facility] with [id number] 11:13:14 Test Item Value Reference Range Interpretation Comments WBC (test code = See_Comment [Automated 6690-2) message] The sy stem which generated this result transmitted reference range : 4.20 - 10.70 10*3/?L. The reference range was not used to interpret this result as normal/abnormal . RBC (test code = See_Comment L [Automated 299-8) message] The sy stem which generated this [...] RDW-SD (test code = 39.9 fL 38.5-51.6 65866-9) RDW-CV (test code = 11.8 % 12.1-15.4 L 788-0) PLT (test code = See_Comment [Automated 777-3) message] The sy stem which generated this result transmitted reference range : 150 - 328 10*3/ ?L. The reference r corey was not used to interpret this result as normal/abnormal . MPV (test code = 11.0 fL 9.8-13.0 08752-7) NRBC/100 WBC (test See_Comment [Automat ed code = 6597263024) message] The system which generated this result transmitted reference range : 0.0 - 10.0 /100 WBCs. The refer ence range was not u sed to interpret th is result as normal/abnormal . NRBC x10^3 (test code <0.01 See_Comment [Auto mated = 4491722558) message] The s ystem which generated this result transmitted reference range : 10*3/?L. The reference range was not used to interpret this result as normal/abnormal . GRAN MAT (NEUT) % 64.3 % (test code = 770-8) IMM GRAN % (test code 0.30 % = 8840334053) LYMPH % (test code = 21.7 % 736-9) MONO % (test code = 10.0 % 5905-5) EOS % (test code = 3.1 % 713-8) BASO % (test code = 0.6 % 706-2) GRAN MAT x10^3(ANC) 4.35 10*3/uL 1.99-6.95 (test code = 3066100780) IMM GRAN x10^3 (test <0.03 0.00-0.06 code = 5904286549) LYMPH x10^3 (test code 1.47 10*3/uL 1.09-3.23 = 731-0) MONO x10^3 (test code 0.68 10*3/uL 0.36-1.02 = 742-7) EOS x10^3 (test code = 0.21 10*3/uL 0.06-0.53 711-2) BASO x10^3 (test code 0.04 10*3/uL 0.01-0.09 = 704-7) Lab Interpretation Abnormal (test code = 89662-5) [id number] 11:09:53 Test Item Value Reference Interpretation Comments Range TROPONIN I (test 0.101 ng/mL See_Comment H [Automated code = 5269331358) message] The system which generated this result [...] biotin. Lab Interpretation Abnormal (test code = 41575-2) [facility] Metabolic Panel (NA, K, CL, CO2, GLUCOSE, BUN, CREATININE, CA)2021-10-31 10:59:31 Test Item Value Reference Range Interpretation Comments NA (test code = 139 mmol/L 135-145 0419115597) K (test code = 4.1 mmol/L 3.5-5.0 7527373657) CL (test code = 103 mmol/L 98-108 6117614775) CO2 TOTAL (test code = 28 mmol/L 23-31 7608144828) AGAP (test code = 2-16 1320226443) BUN (test code = 43 mg/dL 7-23 H 0196278479) GLUCOSE (test code = 165 mg/dL 70-110 H 8727734097) CREATININE (test code = 1.68 mg/dL 0.60-1.25 H 2432534356) CALCIUM (test code = 9.6 mg/dL 8.6-10.6 6407039051) eGFR (test code = mL/min/1.73m2 3942915474) ALYSSA (test code = ALYSSA) Association of [...] tests). Lab Interpretation Abnormal (test code = 74428-4) [facility] HospitalGlycosylated Hemoglobin (A1C)2021-10-31 09:13:40 Test Item Value Reference Range Interpretation Comments HGB A1C (test code = 6.8 % 4.0-5.7 H 4548-4) ALYSSA (test code = ALYSSA) Reference RangesNormal: <5.7%Prediabetes: 5.7 - 6.4%Diabetes: > 6.5% Lab Interpretation (test Abnormal code = 14120-0) [facility] [id number] 06:48:18 Test Item Value Reference Interpretation Comments Range TROPONIN I (test 0.082 ng/mL See_Comment H [Automated code = [id number]) message] The system which generated this result [...] biotin. Lab Interpretation Abnormal (test code = 63475-8) [facility] [id number] 02:09:48 Test Item Value Reference Interpretation Comments Range TROPONIN I (test 0.067 ng/mL See_Comment H [Automated code = 0333753653) message] The system which generated this result [...] biotin. Lab Interpretation Abnormal (test code = 29115-5) [id number] 02:06:31 Test Item Value Reference Range Interpretation Comments NT-proBNP (test code 318 pg/mL See_Comment [Autom ated = 6908888682) message] The system which generated this result transmitted reference range : <=450. The reference range was not used to interpret this result as normal/abnormal . ALYSSA (test code = ALYSSA) Biotin has been reported to cause a negative bias, interpret results relative to patient's use of biotin. Lab Interpretation Normal (test code = 34634-5) [facility]OL[facility] (93276)2021-10-31 01:58:28 Test Item Value Reference Range Interpretation Comments NA (test code = 137 mmol/L 135-145 1687146405) K (test code = 4.1 mmol/L 3.5-5.0 7103995282) CL (test code = 101 mmol/L 98-108 1969554344) CO2 TOTAL (test code = 26 mmol/L 23-31 7384592236) AGAP (test code = 2-16 1227801484) BUN (test code = 46 mg/dL 7-23 H 1996146222) GLUCOSE (test code = 213 mg/dL 70-110 H 0043202740) CREATININE (test code = 1.96 mg/dL 0.60-1.25 H 7594855490) TOTAL BILI (test code = 0.9 mg/dL 0.1-1.5 5291442769) CALCIUM (test code = 9.7 mg/dL 8.6-10.6 2684666181) T PROTEIN (test code = 7.0 g/dL 6.3-8.2 7187587426) ALBUMIN (test code = 4.3 g/dL 3.5-5.0 7028351993) ALK PHOS (test code = 58 U/L 34-122 7603697945) ALTv (test code = 20 U/L 5-50 1742-6) AST(SGOT) (test code = 27 U/L 13-40 3089320244) eGFR (test code = mL/min/1.73m2 1114345517) ALYSSA (test code = ALYSSA) Association of [...] tests). Lab Interpretation Abnormal (test code = 18565-6) [facility]IP[facility], [id number] 01:57:48 Test Item Value Reference Range Interpretation Comments LIPASE (test code = 9611352892) 330 U/L 0-220 H Lab Interpretation (test code = Abnormal 52853-4) [facility] 01:55:04 Test Item Value Reference Range Interpretation Comments APTT Patient (test See_Comment [Automat ed code = 3173-2) message] The system which generated this result transmitted reference range : 23 - 38 Seconds . The reference range was not used to interpr et this result as normal/abnormal . ALYSSA (test code = ALYSSA) The [facility] patient population mean normal value for aPTT is 30 seconds. Lab Interpretation Normal (test code = 79845-8) [facility] HospitalPROTHROMBIN [facility] / [id number] 01:53:08 Test Item Value Reference Range Interpretation [...] tions. Lab Interpretation (test Normal code = 21199-3) [facility] HospitalCB WITH [id number] 01:45:44 Test Item Value Reference Range Interpretation [...] RDW-SD (test code = 39.1 fL 38.5-51.6 03007-9) RDW-CV (test code = 11.6 % 12.1-15.4 L 788-0) PLT (test code = See_Comment [Automated 777-3) message] The sy stem which generated this result transmitted reference range : 150 - 328 10*3/ ?L. The reference r corey was not used to interpret this result as normal/abnormal . MPV (test code = 10.4 fL 9.8-13.0 16474-2) NRBC/100 WBC (test See_Comment [Automat ed code = 3695337366) message] The system which generated this result transmitted reference range : 0.0 - 10.0 /100 WBCs. The refer ence range was not u sed to interpret th is result as normal/abnormal . NRBC x10^3 (test code <0.01 See_Comment [Auto mated = 5612594593) message] The s ystem which generated this result transmitted reference range : 10*3/?L. The reference range was not used to interpret this result as normal/abnormal . GRAN MAT (NEUT) % 62.1 % (test code = 770-8) IMM GRAN % (test code 0.30 % = 0671836019) LYMPH % (test code = 23.4 % 736-9) MONO % (test code = 10.8 % 5905-5) EOS % (test code = 2.9 % 713-8) BASO % (test code = 0.5 % 706-2) GRAN MAT x10^3(ANC) 4.14 10*3/uL 1.99-6.95 (test code = 8481851968) IMM GRAN x10^3 (test <0.03 0.00-0.06 code = 9503637947) LYMPH x10^3 (test code 1.56 10*3/uL 1.09-3.23 = 731-0) MONO x10^3 (test code 0.72 10*3/uL 0.36-1.02 = 742-7) EOS x10^3 (test code = 0.19 10*3/uL 0.06-0.53 711-2) BASO x10^3 (test code 0.03 10*3/uL 0.01-0.09 = 704-7) Lab Interpretation Abnormal (test code = 31518-6) [facility]URIN[facility]IS2021-[facility] 21:15:48 Test Item Value Reference Range Interpretation Comments APPEARANCE (test code = Clear Clear 1828981533) COLOR (test code = Yellow Yellow 3268998922) PH (test code = 4.8-8.0 2285384291) SP GRAVITY (test code = 1.003-1.030 0539404435) GLU U QUAL (test code = 50 mg/dL Normal A 8456665063) BLOOD (test code = Negative Negative INTERFERE NCE FROM 2824265523) ASCORBIC ACID M AY CAUSE FALSE NEG ATIVE RESULT KETONES (test code = Negative Negative 1919059871) PROTEIN (test code = Negative Negative 2887-8) UROBILIN (test code = Normal Normal 1266145240) BILIRUBIN (test code = Negative Negative 7868073579) NITRITE (test code = Negative Negative 2310424130) LEUK JESS (test code = Negative Negative 5667025371) RBC/HPF (test code = See_Comment [Autom ated message] 4265651764) The system [employer] generated this result transmitted ref erence range: 0 - 3 HP F. The reference range was not used to int erpret this result as normal/abnormal . WBC/HPF (test code = See_Comment [Autom ated message] 9834623934) The system [employer] generated this result transmitted ref erence range: 0 - 5 HP F. The reference range was not used to int erpret this result as normal/abnormal . BACTERIA (test code = Negative Negative 7040314909) SQ EPITH (test code = <1 See_Comment [Auto mated message] 8608944070) The system [employer] generated this result transmitted ref erence range: <=2 HPF. The reference range was not used to int erpret this result as normal/abnormal . HYAL CAST (test code = See_Comment [Aut omated message] 6083525377) The system [employer] generated this result transmitted ref erence range: <=2 LPF. The reference range was not used to int erpret this result as normal/abnormal . Lab Interpretation (test Abnormal code = 22842-8) [facility]XR LUMBAR SPINE 2 [id number] 20:30:53 Impression: Postoperative changes. Degenerative changes. No [...] acute bony abnormality identified.End of Report.RL: 3901 [facility]XR HIPS 2 VW [id number] 20:24:52Impression: Postoperative changes. Degenerative changes. No acute [...] is available.End of Report.RL: [facility] (NA, K, CL, CO2, GLUCOSE, BUN, CREATININE, CA)2020-05-24 14:15:00 Test Item Value Reference Range Interpretation Comments NA (test code = 139 mmol/L 135-145 0715999262) K (test code = 4.1 mmol/L 3.5-5 7259783890) CL (test code = 104 mmol/L 98-108 6833366124) CO2 TOTAL (test code = 26 mmol/L 23-31 2118164409) AGAP (test code = 2-16 9880118987) BUN (test code = 22 mg/dL 7-23 8835102450) GLUCOSE (test code = 203 mg/dL 70-110 H 6816093225) CREATININE (test code = 1.40 mg/dL 0.6-1.25 H 6648343214) CALCIUM (test code = 9.1 mg/dL 8.6-10.6 3165030340) eGFR Calculation mL/min/1.73m2 (Non-) (test code = 3290269872) eGFR Calculation mL/min/1.73m2 () (test code = 6160304025) ALYSSA (test code = ALYSSA) Association of [...] tests). Lab Interpretation Abnormal (test code = 27264-4) [facility] HospitalHepatic Function Panel (ALB, T.PRO, BILI T, BU/BC, ALT, AST, ALK PHOS)2020-05-24 13:54:00 Test Item Value Reference Range Interpretation Comments TOTAL BILI (test code = 9466977124) 0.9 mg/dL 0.1-1.1 BILI UNCON (test code = 9197253393) 1.0 mg/dL 0.1-1.1 BILI CONJ (test code = 2980521240) 0.0 mg/dL 0-0.3 T PROTEIN (test code = 8845028879) 7.0 g/dL 6.3-8.2 ALBUMIN (test code = 9637183055) 4.2 g/dL 3.5-5 ALK PHOS (test code = 5359574839) 49 U/L 34-122 ALTv (test code = 1742-6) 17 U/L 5-50 AST(SGOT) (test code = 5085039251) 25 U/L 13-40 Lab Interpretation (test code = Normal 70677-3) [facility]aPTT2020-07-09 13:32:00 Test Item Value Reference Range Interpretation Comments APTT Patient (test See_Comment [Automat ed code = 3173-2) message] The system which generated this result transmitted reference range : 23 - 38 Seconds . The reference range was not used to interpr et this result as normal/abnormal . ALYSSA (test code = ALYSSA) The [facility] patient population mean normal value for aPTT is 30 seconds. Lab Interpretation Normal (test code = 14916-0) [facility] HospitalProthrombin Time (PT) / [id number] 13:30:00 Test Item Value Reference Range Interpretation [...] tions. Lab Interpretation (test Normal code = 84618-3) [facility] HospitalCBC WITH [id number] 13:27:00 Test Item Value Reference Range Interpretation Comments WBC (test code = See_Comment [Automated 6690-2) message] The sy stem which generated this result transmitted reference range : 4.20 - 10.70 10*3/?L. The reference range was not used to interpret this result as normal/abnormal . RBC (test code = See_Comment L [Automated 119-8) message] The sy stem which generated this [...] RDW-SD (test code = 42.6 fL 38.5-51.6 39645-2) RDW-CV (test code = 12.3 % 12.1-15.4 788-0) PLT (test code = See_Comment [Automated 777-3) message] The sy stem which generated this result transmitted reference range : 150 - 328 10*3/ ?L. The reference r corey was not used to interpret this result as normal/abnormal . MPV (test code = 9.9 fL 9.8-13 68775-0) NRBC/100 WBC (test See_Comment [Automat ed code = 0337168400) message] The system which generated this result transmitted reference range : 0.0 - 10.0 /100 WBCs. The refer ence range was not u sed to interpret th is result as normal/abnormal . NRBC x10^3 (test code <0.01 See_Comment [Auto mated = 5267207344) message] The s ystem which generated this result transmitted reference range : 10*3/?L. The reference range was not used to interpret this result as normal/abnormal . GRAN MAT (NEUT) % 55.1 % (test code = 770-8) IMM GRAN % (test code 0.20 % = 1771154336) LYMPH % (test code = 28.8 % 736-9) MONO % (test code = 11.3 % 5905-5) EOS % (test code = 3.5 % 713-8) BASO % (test code = 1.1 % 706-2) GRAN MAT x10^3(ANC) 3.11 10*3/uL 1.99-6.95 (test code = 0446272370) IMM GRAN x10^3 (test <0.03 0-0.06 code = 3598358262) LYMPH x10^3 (test code 1.63 10*3/uL 1.09-3.23 = 731-0) MONO x10^3 (test code 0.64 10*3/uL 0.36-1.02 = 742-7) EOS x10^3 (test code = 0.20 10*3/uL 0.06-0.53 711-2) BASO x10^3 (test code 0.06 10*3/uL 0.01-0.09 = 704-7) Lab Interpretation Abnormal (test code = 35196-5) [facility]XR [facility]LE [facility]+ VW [id number] 13:25:58HISTORY: ?Pain. FINDINGS: AP, lateral, oblique views [...] No acute fracture or dislocation in left ankle.[facility] GLUCOSE (AUTOMATED)2020-03-23 22:34:00 Test Item Value Reference Range Interpretation Comments POCT GLU (test code = 8497792448) 173 mg/dL 70-110 H Lab Interpretation (test code = Abnormal 28654-4) [facility] GLUCOSE (AUTOMATED)2020-03-23 22:34:00 Test Item Value Reference Range Interpretation Comments POCT GLU (test code = 1645120426) 173 mg/dL 70-110 H Lab Interpretation (test code = Abnormal 85929-5) [facility] GLUCOSE (AUTOMATED)2020-03-23 18:12:00 Test Item Value Reference Range Interpretation Comments POCT GLU (test code = 165 mg/dL 70-110 H Notifi ed Provider [id number]) Lab Interpretation (test Abnormal code = 89016-8) [facility] GLUCOSE (AUTOMATED)2020-03-23 18:12:00 Test Item Value Reference Range Interpretation Comments POCT GLU (test code = 165 mg/dL 70-110 H Notifi ed Provider [id number]) Lab Interpretation (test Abnormal code = 17420-4) [facility] GLUCOSE (AUTOMATED)2020-03-23 15:04:00 Test Item Value Reference Range Interpretation Comments POCT GLU (test code = 114 mg/dL 70-110 H Notifi ed Provider [id number]) Lab Interpretation (test Abnormal code = 12855-1) [facility] GLUCOSE (AUTOMATED)2020-03-23 15:04:00 Test Item Value Reference Range Interpretation Comments POCT GLU (test code = 114 mg/dL 70-110 H Notifi ed Provider [id number]) Lab Interpretation (test Abnormal code = 09728-0) [facility] HospitalFERRITIN [id number] 13:23:00 Test Item Value Reference Range Interpretation Comments FERRITIN (test code = 139.0 ng/mL 18-464 9347771337) ALYSSA (test code = ALYSSA) Biotin has been reported to cause a negative bias, interpret results relative to patient's use of biotin. Lab Interpretation (test Normal code = 55963-9) [facility] HospitalFERRITIN [id number] 13:23:00 Test Item Value Reference Range Interpretation Comments FERRITIN (test code = 139.0 ng/mL 18-464 0400370245) ALYSSA (test code = ALYSSA) Biotin has been reported to cause a negative bias, interpret results relative to patient's use of biotin. Lab Interpretation (test Normal code = 18570-9) [facility] [id number] 12:53:00 Test Item Value Reference Range Interpretation Comments IRON (test code = 4076137824) 87 ug/dL 50-160 TIBC (test code = 7838288661) 385 ug/dL 250-410 % FE SAT (test code = 1502210913) 23 % 20-50 Lab Interpretation (test code = Normal 03541-8) [facility] [id number] 12:53:00 Test Item Value Reference Range Interpretation Comments IRON (test code = 3013560498) 87 ug/dL 50-160 TIBC (test code = 6985287390) 385 ug/dL 250-410 % FE SAT (test code = 0514318480) 23 % 20-50 Lab Interpretation (test code = Normal 53406-4) [facility]2020-05-08 12:07:00 Test Item Value Reference Range Interpretation Comments APTT Patient (test code See_Comment [Au tomated message] = 3173-2) The system [employer] generated this result transmitted ref erence range: 26 - 36 Seconds. The reference range was not used to int erpret this result as normal/abnormal . Lab Interpretation (test Abnormal code = 19150-2) [facility]2020-05-08 12:07:00 Test Item Value Reference Range Interpretation Comments APTT Patient (test code See_Comment [Au tomated message] = 3173-2) The system [employer] generated this result transmitted ref erence range: 26 - 36 Seconds. The reference range was not used to int erpret this result as normal/abnormal . Lab Interpretation (test Abnormal code = 05354-5) [facility] HospitalTROPONIN [id number] 11:57:00 Test Item Value Reference Range Interpretation Comments TROPONIN I (test 0.046 ng/mL See_Comment H [Automated code = 7729825659) message] The system which generated this result [...] ? Lab Interpretation Abnormal (test code = 71365-5) [facility] HospitalTROPONIN [id number] 11:57:00 Test Item Value Reference Range Interpretation Comments TROPONIN I (test 0.046 ng/mL See_Comment H [Automated code = 9456685560) message] The system which generated this result [...] ? Lab Interpretation Abnormal (test code = 38433-0) [facility] HospitalBASI METABOLIC PANEL (NA, K, CL, CO2, GLUCOSE, BUN, CREATININE, CA)2020-03-23 11:52:00 Test Item Value Reference Range Interpretation Comments NA (test code = 137 mmol/L 135-145 1721503309) K (test code = 4.1 mmol/L 3.5-5 4310773962) CL (test code = 102 mmol/L 98-108 4151817499) CO2 TOTAL (test code = 26 mmol/L 23-31 7298107538) AGAP (test code = 2-16 6081920685) BUN (test code = 18 mg/dL 7-23 9092584000) GLUCOSE (test code = 119 mg/dL 70-110 H 3645868089) CREATININE (test code = 1.14 mg/dL 0.6-1.25 9967531243) CALCIUM (test code = 9.1 mg/dL 8.6-10.6 7193007960) eGFR Calculation mL/min/1.73m2 (Non-) (test code = 3404256953) eGFR Calculation mL/min/1.73m2 () (test code = 2203964054) ALYSSA (test code = ALYSSA) Association of [...] tests). Lab Interpretation Abnormal (test code = 40457-4) [facility] HospitalMAGNESIUM2020-05-08 11:52:00 Test Item Value Reference Range Interpretation Comments MAGNESIUM (test code = 9636604472) 2.2 mg/dL 1.7-2.4 Lab Interpretation (test code = Normal 99926-2) [facility] (NA, K, CL, CO2, GLUCOSE, BUN, CREATININE, CA)2020-03-23 11:52:00 Test Item Value Reference Range Interpretation Comments NA (test code = 137 mmol/L 135-145 7495357250) K (test code = 4.1 mmol/L 3.5-5 5811198880) CL (test code = 102 mmol/L 98-108 7946409331) CO2 TOTAL (test code = 26 mmol/L 23-31 2983695300) AGAP (test code = 2-16 2997739457) BUN (test code = 18 mg/dL 7-23 0533739467) GLUCOSE (test code = 119 mg/dL 70-110 H 0631639388) CREATININE (test code = 1.14 mg/dL 0.6-1.25 5281559561) CALCIUM (test code = 9.1 mg/dL 8.6-10.6 6879597038) eGFR Calculation mL/min/1.73m2 (Non-) (test code = 1532770530) eGFR Calculation mL/min/1.73m2 () (test code = 7067043490) ALYSSA (test code = ALYSSA) Association of [...] tests). Lab Interpretation Abnormal (test code = 57745-3) [facility]MAG[facility]UM2020-05-08 11:52:00 Test Item Value Reference Range Interpretation Comments MAGNESIUM (test code = 0346812106) 2.2 mg/dL 1.7-2.4 Lab Interpretation (test code = Normal 54823-6) [facility] HospitalProthrombin Time (PT) / [id number] 11:36:00 Test Item Value Reference Range Interpretation Comments PROTIME PATIENT (test See_Comment [Auto mated message] code = 5964-2) The system [employer] generated this result transmitted ref erence range: 10.1 - 1 2.6 Seconds. The re ference range was not u sed to interpret this result as normal/abnor mal. INR (test code = 6301-6) Nor mal INR <1.1; Warfarin Therap eutic range 2.0 to 3. 0 or 2.5 to 3.5, dep ending upon the indica tions. Lab Interpretation (test Normal code = 65389-3) [facility] HospitalProthrombin Time (PT) / [id number] 11:36:00 Test Item Value Reference Range Interpretation Comments PROTIME PATIENT (test See_Comment [Auto mated message] code = 5964-2) The system [employer] generated this result transmitted ref erence range: 10.1 - 1 2.6 Seconds. The re ference range was not u sed to interpret this result as normal/abnor mal. INR (test code = 6301-6) Nor mal INR <1.1; Warfarin Therap eutic range 2.0 to 3. 0 or 2.5 to 3.5, dep ending upon the indica tions. Lab Interpretation (test Normal code = 91172-0) [facility] HospitalTROPONIN [id number] 06:38:00 Test Item Value Reference Range Interpretation Comments TROPONIN I (test 0.045 ng/mL See_Comment H [Automated code = 7788835839) message] The system which generated this result [...] ? Lab Interpretation Abnormal (test code = 42645-1) [facility] [id number] 06:38:00 Test Item Value Reference Range Interpretation Comments TROPONIN I (test 0.045 ng/mL See_Comment H [Automated code = 6028358485) message] The system which generated this result [...] ? Lab Interpretation Abnormal (test code = 12651-8) [facility] (NA, K, CL, CO2, GLUCOSE, BUN, CREATININE, CA)2020-03-23 06:29:00 Test Item Value Reference Range Interpretation Comments NA (test code = 137 mmol/L 135-145 5943943530) K (test code = 3.6 mmol/L 3.5-5 9894283855) CL (test code = 101 mmol/L 98-108 2014005238) CO2 TOTAL (test code = 27 mmol/L 23-31 4623707455) AGAP (test code = 2-16 5418960004) BUN (test code = 19 mg/dL 7-23 6269587758) GLUCOSE (test code = 153 mg/dL 70-110 H 0591402901) CREATININE (test code = 1.22 mg/dL 0.6-1.25 9483562586) CALCIUM (test code = 8.9 mg/dL 8.6-10.6 8203982717) eGFR Calculation mL/min/1.73m2 (Non-) (test code = 0648590150) eGFR Calculation mL/min/1.73m2 () (test code = 3875443745) ALYSSA (test code = ALYSSA) Association of [...] tests). Lab Interpretation Abnormal (test code = 11447-0) [facility]MAGNESIUM2020-05-08 06:29:00 Test Item Value Reference Range Interpretation Comments MAGNESIUM (test code = 8171175309) 1.7 mg/dL 1.7-2.4 Lab Interpretation (test code = Normal 28426-9) [facility] HospitalLIPID PANEL (12239)(TOTAL CHOLESTEROL, TRIGLYCERIDES, HDL)2020-03-23 06:29:00 Test Item Value Reference Range Interpretation Comments CHOL (test code = 106 mg/dL 120-200 L 4346336627) HDL (test code = 46 mg/dL >40 8584363669) HDLC RATIO (test code = See_Comment [Au tomated message] 6463220019) The system [employer] generated this result transmit diamante reference range : <=5.0. The refe rence range was not u sed to interpret th is result as normal/abnormal . TRIG (test code = 74 mg/dL 30-170 0064970654) LDL CHOL (test code = 45 mg/dL See_Comment [Auto mated message] 79953-0) The system [employer] generated this result transmit diamante reference range : <=160. The refe rence range was not u sed to interpret th is result as normal/abnormal . VLDL (test code = 15 mg/dL 5-60 4983080955) Lab Interpretation (test Abnormal code = 42757-2) [facility]BASI [facility]OLIC PANEL (NA, K, CL, CO2, GLUCOSE, BUN, CREATININE, CA)2020-03-23 06:29:00 Test Item Value Reference Range Interpretation Comments NA (test code = 137 mmol/L 135-145 0893724388) K (test code = 3.6 mmol/L 3.5-5 1894982800) CL (test code = 101 mmol/L 98-108 9527192713) CO2 TOTAL (test code = 27 mmol/L 23-31 0612916345) AGAP (test code = 2-16 8275703034) BUN (test code = 19 mg/dL 7-23 7455887548) GLUCOSE (test code = 153 mg/dL 70-110 H 0695277667) CREATININE (test code = 1.22 mg/dL 0.6-1.25 5607730904) CALCIUM (test code = 8.9 mg/dL 8.6-10.6 3379041064) eGFR Calculation mL/min/1.73m2 (Non-) (test code = 7460952418) eGFR Calculation mL/min/1.73m2 () (test code = 8798643012) ALYSSA (test code = ALYSSA) Association of [...] tests). Lab Interpretation Abnormal (test code = 43073-9) [facility]MAG[facility]UM2020-05-08 06:29:00 Test Item Value Reference Range Interpretation Comments MAGNESIUM (test code = 8275771195) 1.7 mg/dL 1.7-2.4 Lab Interpretation (test code = Normal 00505-6) [facility] HospitalLIPID PANEL (43552)(TOTAL CHOLESTEROL, TRIGLYCERIDES, HDL)2020-03-23 06:29:00 Test Item Value Reference Range Interpretation Comments CHOL (test code = 106 mg/dL 120-200 L 4991506884) HDL (test code = 46 mg/dL >40 5854455602) HDLC RATIO (test code = See_Comment [Au tomated message] 5302619088) The system [employer] generated this result transmit diamante reference range : <=5.0. The refe rence range was not u sed to interpret th is result as normal/abnormal . TRIG (test code = 74 mg/dL 30-170 8922955052) LDL CHOL (test code = 45 mg/dL See_Comment [Auto mated message] 65885-4) The system [employer] generated this result transmit diamante reference range : <=160. The refe rence range was not u sed to interpret th is result as normal/abnormal . VLDL (test code = 15 mg/dL 5-60 5180521542) Lab Interpretation (test Abnormal code = 34703-1) [facility]aPTT2020-[facility] 03:18:00 Test Item Value Reference Range Interpretation Comments APTT Patient (test code = See_Comment [ Automated message] 3173-2) The system [employer] generated this result transmitted ref erence range: 26 - 36 Seconds. The re ference range was not u sed to interpret this result as normal/abnor mal. Lab Interpretation (test Normal code = 85842-8) [facility]aPTT2020-[facility]-08 03:18:00 Test Item Value Reference Range Interpretation Comments APTT Patient (test code = See_Comment [ Automated message] 3173-2) The system whic h generated this result transmitted ref erence range: 26 - 36 Seconds. The re ference range was not u sed to interpret this result as normal/abnor mal. Lab Interpretation (test Normal code = 10410-6) [facility] HospitalPROTHROMBIN TIME / [id number] 03:07:00 Test Item Value Reference Range Interpretation Comments PROTIME PATIENT (test See_Comment [Auto mated message] code = 5964-2) The system [employer] generated this result transmitted ref erence range: 10.1 - 1 2.6 Seconds. The re ference range was not u sed to interpret this result as normal/abnor mal. INR (test code = 6301-6) Nor mal INR <1.1; Warfarin Therap eutic range 2.0 to 3. 0 or 2.5 to 3.5, dep ending upon the indica tions. Lab Interpretation (test Normal code = 31576-5) [facility] HospitalPROTHROMBIN TIME / [id number] 03:07:00 Test Item Value Reference Range Interpretation Comments PROTIME PATIENT (test See_Comment [Auto mated message] code = 5964-2) The system [employer] generated this result transmitted ref erence range: 10.1 - 1 2.6 Seconds. The re ference range was not u sed to interpret this result as normal/abnor mal. INR (test code = 6301-6) Nor mal INR <1.1; Warfarin Therap eutic range 2.0 to 3. 0 or 2.5 to 3.5, dep ending upon the indica tions. Lab Interpretation (test Normal code = 39982-5) [facility] [id number] 02:23:32 No acute cardiopulmonary process. Preliminary Report [...] reviewed this study and agree with the abovereport.[facility] [id number] 02:23:32 No acute cardiopulmonary process. Preliminary Report [...] reviewed this study and agree with the abovereport.[facility] [id number] 01:23:00 Test Item Value Reference Range Interpretation Comments SARS-CoV-2 (test code = Not Detected Not Detected 64414-1) ALYSSA (test code = ALYSSA) ID NOW COVID-19 Assay is an isothermal nucleic acid amplification test intended for the qualitative detection of nucleic acid from SARS-CoV-2 viral RNA in nasopharyngeal (JUDICIAL ADMINISTRATIVE ASSISTANT) specimens. It is used under Emergency Use [...] indicated. Lab Interpretation Normal (test code = 67936-2) [facility] [id number] 01:23:00 Test Item Value Reference Range Interpretation Comments SARS-CoV-2 (test code = Not Detected Not Detected 00241-6) ALYSSA (test code = ALYSSA) ID NOW COVID-19 Assay is an isothermal nucleic acid amplification test intended for the qualitative detection of nucleic acid from SARS-CoV-2 viral RNA in nasopharyngeal (JUDICIAL ADMINISTRATIVE ASSISTANT) specimens. It is used under Emergency Use [...] indicated. Lab Interpretation Normal (test code = 93112-5) [facility] [id number] 00:12:00 Test Item Value Reference Range Interpretation Comments NT-proBNP (test code 585 pg/mL See_Comment H [Autom ated = 6249508200) message] The system which generated this result transmitted reference range : <=450. The reference range was not used to interpret this result as normal/abnormal . ALYSSA (test code = ALYSSA) Biotin has been reported to cause a negative bias, interpret results relative to patient's use of biotin. Lab Interpretation Abnormal (test code = 24565-5) [facility] [id number] 00:12:00 Test Item Value Reference Range Interpretation Comments TROPONIN I (test 0.030 ng/mL See_Comment [Automated code = 5317540367) message] The system which generated this result [...] ? Lab Interpretation Normal (test code = 06752-4) [facility] [id number] 00:12:00 Test Item Value Reference Range Interpretation Comments NT-proBNP (test code 585 pg/mL See_Comment H [Autom ated = 2676051435) message] The system which generated this result transmitted reference range : <=450. The reference range was not used to interpret this result as normal/abnormal . ALYSSA (test code = ALYSSA) Biotin has been reported to cause a negative bias, interpret results relative to patient's use of biotin. Lab Interpretation Abnormal (test code = 59940-0) [facility] [id number] 00:12:00 Test Item Value Reference Range Interpretation Comments TROPONIN I (test 0.030 ng/mL See_Comment [Automated code = 5760476521) message] The system which generated this result [...] ? Lab Interpretation Normal (test code = 39597-8) [facility]OLIC PAN[facility] (33979)2020-03-23 00:03:00 Test Item Value Reference Range Interpretation Comments NA (test code = 138 mmol/L 135-145 6191031861) K (test code = 4.1 mmol/L 3.5-5 6324944488) CL (test code = 103 mmol/L 98-108 0615515071) CO2 TOTAL (test code = 26 mmol/L 23-31 4540689361) AGAP (test code = 2-16 1735263144) BUN (test code = 18 mg/dL 7-23 3493391726) GLUCOSE (test code = 157 mg/dL 70-110 H 3894300580) CREATININE (test code = 1.19 mg/dL 0.6-1.25 6301986110) TOTAL BILI (test code = 1.1 mg/dL 0.1-1.9 4406476746) CALCIUM (test code = 9.2 mg/dL 8.6-10.6 3401507635) T PROTEIN (test code = 6.8 g/dL 6.3-8.2 9690045654) ALBUMIN (test code = 4.0 g/dL 3.5-5 0371795213) ALK PHOS (test code = 51 U/L 34-122 3190885384) ALTv (test code = 16 U/L 5-50 1742-6) AST(SGOT) (test code = 23 U/L 13-40 6144738983) eGFR Calculation mL/min/1.73m2 (Non-) (test code = 0717966737) eGFR Calculation mL/min/1.73m2 () (test code = 5207208582) ALYSSA (test code = ALYSSA) Association of [...] tests). Lab Interpretation Abnormal (test code = 36513-3) [facility]. METABOLIC PANEL (00936)2020-03-23 00:03:00 Test Item Value Reference Range Interpretation Comments NA (test code = 138 mmol/L 135-145 0216857479) K (test code = 4.1 mmol/L 3.5-5 0696477661) CL (test code = 103 mmol/L 98-108 0855061804) CO2 TOTAL (test code = 26 mmol/L 23-31 0967187148) AGAP (test code = 2-16 2216556860) BUN (test code = 18 mg/dL 7-23 5487387694) GLUCOSE (test code = 157 mg/dL 70-110 H 0295038129) CREATININE (test code = 1.19 mg/dL 0.6-1.25 2595683849) TOTAL BILI (test code = 1.1 mg/dL 0.1-1.7 3637624871) CALCIUM (test code = 9.2 mg/dL 8.6-10.6 2724157568) T PROTEIN (test code = 6.8 g/dL 6.3-8.2 1070672571) ALBUMIN (test code = 4.0 g/dL 3.5-5 6314029469) ALK PHOS (test code = 51 U/L 34-122 7888246497) ALTv (test code = 16 U/L 5-50 1742-6) AST(SGOT) (test code = 23 U/L 13-40 6543681910) eGFR Calculation mL/min/1.73m2 (Non-) (test code = 7024043081) eGFR Calculation mL/min/1.73m2 () (test code = 5413080663) ALYSSA (test code = ALYSSA) Association of [...] tests). Lab Interpretation Abnormal (test code = 01963-6) [facility] WITH [id number] 23:57:00 Test Item Value Reference Range Interpretation [...] RDW-SD (test code = 49.6 fL 38.5-51.6 24791-2) RDW-CV (test code = 14.6 % 12.1-15.4 788-0) PLT (test code = See_Comment L [Automated 777-3) message] The sy stem which generated this result transmitted reference range : 150 - 328 10*3/ ?L. The reference r corey was not used to interpret this result as normal/abnormal . MPV (test code = 9.9 fL 9.8-13 59101-1) NRBC/100 WBC (test See_Comment [Automat ed code = 5358147223) message] The system which generated this result transmitted reference range : 0.0 - 10.0 /100 WBCs. The refer ence range was not u sed to interpret th is result as normal/abnormal . NRBC x10^3 (test code <0.01 See_Comment [Auto mated = 8965042267) message] The s ystem which generated this result transmitted reference range : 10*3/?L. The reference range was not used to interpret this result as normal/abnormal . GRAN MAT (NEUT) % 55.3 % (test code = 770-8) IMM GRAN % (test code 0.20 % = 7012644535) LYMPH % (test code = 28.3 % 736-9) MONO % (test code = 12.6 % 5905-5) EOS % (test code = 3.1 % 713-8) BASO % (test code = 0.5 % 706-2) GRAN MAT x10^3(ANC) 3.20 10*3/uL 1.99-6.95 (test code = 8062376457) IMM GRAN x10^3 (test <0.03 0-0.06 code = 3611121469) LYMPH x10^3 (test code 1.64 10*3/uL 1.09-3.23 = 731-0) MONO x10^3 (test code 0.73 10*3/uL 0.36-1.02 = 742-7) EOS x10^3 (test code = 0.18 10*3/uL 0.06-0.53 711-2) BASO x10^3 (test code 0.03 10*3/uL 0.01-0.09 = 704-7) Lab Interpretation Abnormal (test code = 65555-3) [facility] WITH [id number] 23:57:00 Test Item Value Reference Range Interpretation [...] RDW-SD (test code = 49.6 fL 38.5-51.6 35505-7) RDW-CV (test code = 14.6 % 12.1-15.4 788-0) PLT (test code = See_Comment L [Automated 777-3) message] The sy stem which generated this result transmitted reference range : 150 - 328 10*3/ ?L. The reference r corey was not used to interpret this result as normal/abnormal . MPV (test code = 9.9 fL 9.8-13 51552-7) NRBC/100 WBC (test See_Comment [Automat ed code = 6560268591) message] The system which generated this result transmitted reference range : 0.0 - 10.0 /100 WBCs. The refer ence range was not u sed to interpret th is result as normal/abnormal . NRBC x10^3 (test code <0.01 See_Comment [Auto mated = 0479836780) message] The s ystem which generated this result transmitted reference range : 10*3/?L. The reference range was not used to interpret this result as normal/abnormal . GRAN MAT (NEUT) % 55.3 % (test code = 770-8) IMM GRAN % (test code 0.20 % = 0117758450) LYMPH % (test code = 28.3 % 736-9) MONO % (test code = 12.6 % 5905-5) EOS % (test code = 3.1 % 713-8) BASO % (test code = 0.5 % 706-2) GRAN MAT x10^3(ANC) 3.20 10*3/uL 1.99-6.95 (test code = 7710727102) IMM GRAN x10^3 (test <0.03 0-0.06 code = 3728865460) LYMPH x10^3 (test code 1.64 10*3/uL 1.09-3.23 = 731-0) MONO x10^3 (test code 0.73 10*3/uL 0.36-1.02 = 742-7) EOS x10^3 (test code = 0.18 10*3/uL 0.06-0.53 711-2) BASO x10^3 (test code 0.03 10*3/uL 0.01-0.09 = 704-7) Lab Interpretation Abnormal (test code = 72472-4) [facility] [id number] 21:48:00 Test Item Value Reference Range Interpretation Comments SARS-CoV-2 (test code = Not Detected Not Detected 89477-8) ALYSSA (test code = ALYSSA) ID NOW COVID-19 Assay is an isothermal nucleic acid amplification test intended for the qualitative detection of nucleic acid from SARS-CoV-2 viral RNA in nasopharyngeal (JUDICIAL ADMINISTRATIVE ASSISTANT) specimens. It is used under Emergency Use [...] indicated. Lab Interpretation Normal (test code = 01106-4) [facility]Troponin [id number] 21:44:00 Test Item Value Reference Range Interpretation Comments TROPONIN I (test 0.027 ng/mL See_Comment [Automated code = 1894313678) message] The system which generated this result [...] ? Lab Interpretation Normal (test code = 95737-6) [facility] HospitalProthrombin Time (PT) / [id number] 21:41:00 Test Item Value Reference Range Interpretation [...] tions. Lab Interpretation (test Normal code = 05540-4) [facility] [id number] 21:39:00 Test Item Value Reference Range Interpretation Comments NT-proBNP (test code 663 pg/mL See_Comment H [Autom ated = 7175536519) message] The system which generated this result transmitted reference range : <=450. The reference range was not used to interpret this result as normal/abnormal . ALYSSA (test code = ALYSSA) Biotin has been reported to cause a negative bias, interpret results relative to patient's use of biotin. Lab Interpretation Abnormal (test code = 83265-1) [facility]. METABOLIC PANEL (71480)2020-03-21 21:37:00 Test Item Value Reference Range Interpretation Comments NA (test code = 139 mmol/L 135-145 0729111419) K (test code = 4.1 mmol/L 3.5-5 1458020203) CL (test code = 102 mmol/L 98-108 6104041580) CO2 TOTAL (test code = 29 mmol/L 23-31 9517228919) AGAP (test code = 2-16 2865825668) BUN (test code = 18 mg/dL 7-23 9175205245) GLUCOSE (test code = 277 mg/dL 70-110 H 0017865963) CREATININE (test code = 1.23 mg/dL 0.6-1.25 4495417688) TOTAL BILI (test code = 1.3 mg/dL 0.1-1.1 H 0872035035) CALCIUM (test code = 9.8 mg/dL 8.6-10.6 1557267369) T PROTEIN (test code = 7.0 g/dL 6.3-8.2 1711088687) ALBUMIN (test code = 4.2 g/dL 3.5-5 2102827428) ALK PHOS (test code = 50 U/L 34-122 5532506620) ALTv (test code = 15 U/L 5-50 1742-6) AST(SGOT) (test code = 22 U/L 13-40 7835319431) eGFR Calculation mL/min/1.73m2 (Non-) (test code = 1485915241) eGFR Calculation mL/min/1.73m2 () (test code = 8914921432) ALYSSA (test code = ALYSSA) Association of [...] tests). Lab Interpretation Abnormal (test code = 98634-7) [facility] HospitalLipase [id number] 21:37:00 Test Item Value Reference Range Interpretation Comments LIPASE (test code = 3922018187) 161 U/L 0-220 Lab Interpretation (test code = Normal 99355-9) [facility] 1 [id number] 20:46:31HISTORY: Chest pain. TECHNIQUE: Portable AP view of the chest is obtained. Comparison made with03/04/2020 study. FINDINGS: No acute pneumonia. No pneumothorax or pleural effusion orpulmonary congestion detected. Mild cardiomegaly and intrathecal electrodesin lower thoracic spinal canal noted. Mild thoracolumbar scoliosis noted. CONCLUSIONS: Mild cardiomegaly.[facility], Radiant Results Inft User - 03/21/2020 3:47 PM CDTHISTORY: Chest pain.TECHNIQUE: Portable AP view of the chest is obtained. Comparison made with03/04/2020 study.FINDINGS: No acute pneumonia. No pneumothorax or pleural effusion orpulmonary congestion detected. Mild cardiomegaly and intrathecal electrodesin lower thoracic spinal canal noted. Mild thoracolumbar scoliosis noted.CONCLUSIONS: Mild cardiomegaly. [facility] HospitalL[facility] Acid Whole [id number] 20:43:00 Test Item Value Reference Range Interpretation Comments LACTIC ACID (test code = 1.91 mmol/L 0.3-2.6 5170180458) [facility] GLUCOSE (AUTOMATED)2020-03-07 20:58:00 Test Item Value Reference Range Interpretation Comments POCT GLU (test code = 9993981600) 216 mg/dL 70-110 H Lab Interpretation (test code = Abnormal 79571-0) [facility] GLUCOSE (AUTOMATED)2020-03-07 16:00:00 Test Item Value Reference Range Interpretation Comments POCT GLU (test code = 8067008419) 168 mg/dL 70-110 H Lab Interpretation (test code = Abnormal 32792-0) [facility] GLUCOSE (AUTOMATED)2020-03-07 13:07:00 Test Item Value Reference Range Interpretation Comments POCT GLU (test code = 0162050262) 148 mg/dL 70-110 H Lab Interpretation (test code = Abnormal 16936-6) [facility] [id number] 11:27:00 Test Item Value Reference Range Interpretation Comments TROPONIN I (test 0.051 ng/mL See_Comment H [Automated code = 3996267998) message] The system which generated this result [...] ? Lab Interpretation Abnormal (test code = 73402-9) [facility] [id number] 11:24:00 Test Item Value Reference Range Interpretation Comments NT-proBNP (test code 336 pg/mL See_Comment [Autom ated = 5230614090) message] The system which generated this result transmitted reference range : <=450. The reference range was not used to interpret this result as normal/abnormal . ALYSSA (test code = ALYSSA) Biotin has been reported to cause a negative bias, interpret results relative to patient's use of biotin. Lab Interpretation Normal (test code = 63517-6) [facility] HospitalBasi Metabolic Panel (NA, K, CL, CO2, GLUCOSE, BUN, CREATININE, CA)2020-03-07 11:14:00 Test Item Value Reference Range Interpretation Comments NA (test code = 138 mmol/L 135-145 0651603091) K (test code = 3.8 mmol/L 3.5-5 1061594480) CL (test code = 97 mmol/L 98-108 L 4524456952) CO2 TOTAL (test code = 30 mmol/L 23-31 6771826504) AGAP (test code = 2-16 6005063267) BUN (test code = 36 mg/dL 7-23 H 5614024245) GLUCOSE (test code = 140 mg/dL 70-110 H 3414065007) CREATININE (test code = 1.50 mg/dL 0.6-1.25 H 1934614447) CALCIUM (test code = 10.0 mg/dL 8.6-10.6 5249240707) eGFR Calculation mL/min/1.73m2 (Non-) (test code = 2671266202) eGFR Calculation mL/min/1.73m2 () (test code = 3377908003) ALYSSA (test code = ALYSSA) Association of [...] tests). Lab Interpretation Abnormal (test code = 53283-8) [facility] HospitalURIC [id number] 11:14:00 Test Item Value Reference Range Interpretation Comments URIC ACID (test code = 2565408788) 5.4 mg/dL 3.6-8 Lab Interpretation (test code = Normal 14632-9) [facility] WITH [id number] 10:53:00 Test Item Value Reference Range Interpretation Comments WBC (test code = See_Comment [Automated 7435-2) message] The sy stem which generated this result transmitted reference range : 4.20 - 10.70 10*3/?L. The reference range was not used to interpret this result as normal/abnormal . RBC (test code = See_Comment L [Automated 800-8) message] The sy stem which generated this [...] RDW-SD (test code = 45.1 fL 38.5-51.6 27265-1) RDW-CV (test code = 14.2 % 12.1-15.4 788-0) PLT (test code = See_Comment [Automated 777-3) message] The sy stem which generated this result transmitted reference range : 150 - 328 10*3/ ?L. The reference r corey was not used to interpret this result as normal/abnormal . MPV (test code = 9.8 fL 9.8-13 56829-4) NRBC/100 WBC (test See_Comment [Automat ed code = 5644181270) message] The system which generated this result transmitted reference range : 0.0 - 10.0 /100 WBCs. The refer ence range was not u sed to interpret th is result as normal/abnormal . NRBC x10^3 (test code <0.01 See_Comment [Auto mated = 9508120871) message] The s ystem which generated this result transmitted reference range : 10*3/?L. The reference range was not used to interpret this result as normal/abnormal . GRAN MAT (NEUT) % 51.0 % (test code = 770-8) IMM GRAN % (test code 0.50 % = 1196853297) LYMPH % (test code = 32.0 % 736-9) MONO % (test code = 11.3 % 5905-5) EOS % (test code = 4.3 % 713-8) BASO % (test code = 0.9 % 706-2) GRAN MAT x10^3(ANC) 2.85 10*3/uL 1.99-6.95 (test code = 1293853887) IMM GRAN x10^3 (test 0.03 10*3/uL 0-0.06 code = 5906670981) LYMPH x10^3 (test code 1.79 10*3/uL 1.09-3.23 = 731-0) MONO x10^3 (test code 0.63 10*3/uL 0.36-1.02 = 742-7) EOS x10^3 (test code = 0.24 10*3/uL 0.06-0.53 711-2) BASO x10^3 (test code 0.05 10*3/uL 0.01-0.09 = 704-7) Lab Interpretation Abnormal (test code = 65679-0) [facility] GLUCOSE (AUTOMATED)2020-03-06 22:46:00 Test Item Value Reference Range Interpretation Comments POCT GLU (test code = 3494746949) 209 mg/dL 70-110 H Lab Interpretation (test code = Abnormal 45950-8) [facility] GLUCOSE (AUTOMATED)2020-03-06 16:23:00 Test Item Value Reference Range Interpretation Comments POCT GLU (test code = 5994253887) 254 mg/dL 70-110 H Lab Interpretation (test code = Abnormal 26201-6) [facility] GLUCOSE (AUTOMATED)2020-03-06 12:51:00 Test Item Value Reference Range Interpretation Comments POCT GLU (test code = 3070187941) 126 mg/dL 70-110 H Lab Interpretation (test code = Abnormal 34310-6) [facility]TR[facility] [id number] 10:16:00 Test Item Value Reference Range Interpretation Comments TROPONIN I (test 0.056 ng/mL See_Comment H [Automated code = 0433650079) message] The system which generated this result [...] ? Lab Interpretation Abnormal (test code = 67868-7) [facility] Metabolic Panel (NA, K, CL, CO2, GLUCOSE, BUN, CREATININE, CA)2020-03-06 10:13:00 Test Item Value Reference Range Interpretation Comments NA (test code = 136 mmol/L 135-145 6490531924) K (test code = 4.1 mmol/L 3.5-5 5727498478) CL (test code = 95 mmol/L 98-108 L 1834083388) CO2 TOTAL (test code = 30 mmol/L 23-31 4081595193) AGAP (test code = 2-16 8270803547) BUN (test code = 35 mg/dL 7-23 H 0014857097) GLUCOSE (test code = 174 mg/dL 70-110 H 1882779757) CREATININE (test code = 1.67 mg/dL 0.6-1.25 H 6690741108) CALCIUM (test code = 9.7 mg/dL 8.6-10.6 8629768005) eGFR Calculation mL/min/1.73m2 (Non-) (test code = 4735876753) eGFR Calculation mL/min/1.73m2 () (test code = 8404085084) ALYSSA (test code = ALYSSA) Association of [...] tests). Lab Interpretation Abnormal (test code = 02068-4) [facility] WITH [id number] 09:16:00 Test Item Value Reference Range Interpretation Comments WBC (test code = See_Comment [Automated 8712-2) message] The sy stem which generated this [...] RDW-SD (test code = 45.6 fL 38.5-51.6 48020-7) RDW-CV (test code = 14.3 % 12.1-15.4 788-0) PLT (test code = See_Comment [Automated 777-3) message] The sy stem which generated this result transmitted reference range : 150 - 328 10*3/ ?L. The reference r corey was not used to interpret this result as normal/abnormal . MPV (test code = 9.8 fL 9.8-13 20916-0) NRBC/100 WBC (test See_Comment [Automat ed code = 1787029908) message] The system which generated this result transmitted reference range : 0.0 - 10.0 /100 WBCs. The refer ence range was not u sed to interpret th is result as normal/abnormal . NRBC x10^3 (test code <0.01 See_Comment [Auto mated = 9984565570) message] The s ystem which generated this result transmitted reference range : 10*3/?L. The reference range was not used to interpret this result as normal/abnormal . GRAN MAT (NEUT) % 56.1 % (test code = 770-8) IMM GRAN % (test code 0.10 % = 2369572901) LYMPH % (test code = 29.7 % 736-9) MONO % (test code = 9.6 % 5905-5) EOS % (test code = 3.8 % 713-8) BASO % (test code = 0.7 % 706-2) GRAN MAT x10^3(ANC) 3.79 10*3/uL 1.99-6.95 (test code = 9159118309) IMM GRAN x10^3 (test <0.03 0-0.06 code = 7888996882) LYMPH x10^3 (test code 2.01 10*3/uL 1.09-3.23 = 731-0) MONO x10^3 (test code 0.65 10*3/uL 0.36-1.02 = 742-7) EOS x10^3 (test code = 0.26 10*3/uL 0.06-0.53 711-2) BASO x10^3 (test code 0.05 10*3/uL 0.01-0.09 = 704-7) Lab Interpretation Abnormal (test code = 10095-6) [facility] 01:25:00 Test Item Value Reference Range Interpretation Comments POCT GLU (test code = 7799596354) 208 mg/dL 70-110 H Lab Interpretation (test code = Abnormal 72846-8) [facility]KATEN [id number] 00:08:00 Test Item Value Reference Range Interpretation Comments TROPONIN I (test 0.047 ng/mL See_Comment H [Automated code = 5200852740) message] The system which generated this result [...] ? Lab Interpretation Abnormal (test code = 14449-2) [facility] GLUCOSE (AUTOMATED)2020-03-05 21:19:00 Test Item Value Reference Range Interpretation Comments POCT GLU (test code = 8381979971) 234 mg/dL 70-110 H Lab Interpretation (test code = Abnormal 73884-7) [facility] GLUCOSE (AUTOMATED)2020-03-05 16:55:00 Test Item Value Reference Range Interpretation Comments POCT GLU (test code = 8505006249) 258 mg/dL 70-110 H Lab Interpretation (test code = Abnormal 81276-7) [facility] GLUCOSE (AUTOMATED)2020-03-05 12:59:00 Test Item Value Reference Range Interpretation Comments POCT GLU (test code = 4225042387) 194 mg/dL 70-110 H Lab Interpretation (test code = Abnormal 80782-0) [facility] [id number] 10:54:00 Test Item Value Reference Range Interpretation Comments TROPONIN I (test 0.071 ng/mL See_Comment H [Automated code = 4957311459) message] The system which generated this result [...] ? Lab Interpretation Abnormal (test code = 14881-1) [facility] (NA, K, CL, CO2, GLUCOSE, BUN, CREATININE, CA)2020-03-05 10:43:00 Test Item Value Reference Range Interpretation Comments NA (test code = 139 mmol/L 135-145 3115686908) K (test code = 4.1 mmol/L 3.5-5 2533001406) CL (test code = 101 mmol/L 98-108 1102103547) CO2 TOTAL (test code = 27 mmol/L 23-31 6685602775) AGAP (test code = 2-16 8083017040) BUN (test code = 25 mg/dL 7-23 H 9536074560) GLUCOSE (test code = 243 mg/dL 70-110 H 1616561837) CREATININE (test code = 1.22 mg/dL 0.6-1.25 7210384251) CALCIUM (test code = 9.8 mg/dL 8.6-10.6 7313713073) eGFR Calculation mL/min/1.73m2 (Non-) (test code = 5267404780) eGFR Calculation mL/min/1.73m2 () (test code = 1120265906) ALYSSA (test code = ALYSSA) Association of [...] tests). Lab Interpretation Abnormal (test code = 22813-3) [facility] WITH [id number] 10:23:00 Test Item Value Reference Range Interpretation Comments WBC (test code = See_Comment [Automated message] 6690-2) The system [employer] generated this result transmitted ref erence range: 4.20 - 1 0.70 10*3/?L. The re ference range was not u sed to interpret this result as normal/abnor mal. RBC (test code = See_Comment [Automated message] 789-8) The system [employer] generated this result transmitted ref erence range: [...] RDW-SD (test code 47.8 fL 38.5-51.6 = 91180-6) RDW-CV (test code 14.4 % 12.1-15.4 = 788-0) PLT (test code = See_Comment [Automated message] 777-3) The system [employer] generated this result transmitted ref erence range: 150 - 32 8 10*3/?L. The re ference range was not u sed to interpret this result as normal/abnor mal. MPV (test code = 9.8 fL 9.8-13 23384-5) NRBC/100 WBC (test See_Comment [Automat ed message] code = 8079489578) The syste m which generated this result transmitted ref erence range: 0.0 - 10 .0 /100 WBCs. The refer ence range was not u sed to interpret this result as normal/abnor mal. NRBC x10^3 (test <0.01 See_Comment [Automated message] code = 8711202873) The syste m which generated this result transmitted ref erence range: 10*3/?L. The reference range was not used to interpr et this result as normal/abnormal . GRAN MAT (NEUT) % 48.8 % (test code = 770-8) IMM GRAN % (test 0.20 % code = 8504648409) LYMPH % (test code 34.7 % = 736-9) MONO % (test code 10.8 % = 5905-5) EOS % (test code = 4.9 % 713-8) BASO % (test code 0.6 % = 706-2) GRAN MAT 2.49 10*3/uL 1.99-6.95 x10^3(ANC) (test code = 2923607044) IMM GRAN x10^3 <0.03 0-0.06 (test code = 5708957424) LYMPH x10^3 (test 1.77 10*3/uL 1.09-3.23 code = 731-0) MONO x10^3 (test 0.55 10*3/uL 0.36-1.02 code = 742-7) EOS x10^3 (test 0.25 10*3/uL 0.06-0.53 code = 711-2) BASO x10^3 (test 0.03 10*3/uL 0.01-0.09 code = 704-7) [facility] [id number] 03:06:08 No acute cardiopulmonary process. Unchanged enlargement [...] terminating over themid to lower thoracic spine. [facility], Radiant Results Inft User - [...] reviewed this study and agree with the abovereport.[facility] CORONAVIRUS COVID-19 [id number] 00:34:00 Test Item Value Reference Range Interpretation Comments SARS-CoV-2 (test code = Not Detected Not Detected 39879-6) ALYSSA (test code = ALYSSA) ID NOW COVID-19 Assay is an isothermal nucleic acid amplification test intended for the qualitative detection of nucleic acid from SARS-CoV-2 viral RNA in nasopharyngeal (JUDICIAL ADMINISTRATIVE ASSISTANT) specimens. It is used under Emergency Use [...] indicated. Lab Interpretation Normal (test code = 54180-7) [facility] HospitalTroponin [id number] 00:08:00 Test Item Value Reference Range Interpretation Comments TROPONIN I (test 0.056 ng/mL See_Comment H [Automated code = 3514068524) message] The system which generated this result [...] ? Lab Interpretation Abnormal (test code = 73636-8) [facility]N-[facility]MINAL [id number] 00:04:00 Test Item Value Reference Range Interpretation Comments NT-proBNP (test code 562 pg/mL See_Comment H [Autom ated = 7441954529) message] The system which generated this result transmitted reference range : <=450. The reference range was not used to interpret this result as normal/abnormal . ALYSSA (test code = ALYSSA) Biotin has been reported to cause a negative bias, interpret results relative to patient's use of biotin. Lab Interpretation Abnormal (test code = 33396-9) [facility] HospitalProthrombin Time (PT) / [id number] 23:57:00 Test Item Value Reference Range Interpretation [...] tions. Lab Interpretation (test Normal code = 39834-8) [facility] HospitalBasi Metabolic Panel (NA, K, CL, CO2, GLUCOSE, BUN, CREATININE, CA)2020-03-04 23:56:00 Test Item Value Reference Range Interpretation Comments NA (test code = 139 mmol/L 135-145 6015366795) K (test code = 4.1 mmol/L 3.5-5 8748232574) CL (test code = 102 mmol/L 98-108 9989703756) CO2 TOTAL (test code = 29 mmol/L 23-31 8004437619) AGAP (test code = 2-16 8276061751) BUN (test code = 23 mg/dL 7-23 6246084048) GLUCOSE (test code = 193 mg/dL 70-110 H 8203954124) CREATININE (test code = 1.25 mg/dL 0.6-1.25 8492192682) CALCIUM (test code = 9.7 mg/dL 8.6-10.6 8163055288) eGFR Calculation mL/min/1.73m2 (Non-) (test code = 1715141838) eGFR Calculation mL/min/1.73m2 () (test code = 0037247850) ALYSSA (test code = ALYSSA) Association of [...] tests). Lab Interpretation Abnormal (test code = 93423-2) [facility] HospitalHepatic Function Panel (ALB, T.PRO, BILI T, BU/BC, ALT, AST, ALK PHOS)2020-03-04 23:56:00 Test Item Value Reference Range Interpretation Comments TOTAL BILI (test code = 4062537673) 1.1 mg/dL 0.1-1.1 BILI UNCON (test code = 4442898611) 1.1 mg/dL 0.1-1.1 BILI CONJ (test code = 7632576258) 0.0 mg/dL 0-0.3 T PROTEIN (test code = 1575659758) 7.1 g/dL 6.3-8.2 ALBUMIN (test code = 9719959136) 4.1 g/dL 3.5-5 ALK PHOS (test code = 2570587326) 61 U/L 34-122 ALTv (test code = 1742-6) 16 U/L 5-50 AST(SGOT) (test code = 7981150542) 23 U/L 13-40 Lab Interpretation (test code = Normal 31894-2) [facility] HospitalLipase [id number] 23:56:00 Test Item Value Reference Range Interpretation Comments LIPASE (test code = 9333461665) 149 U/L 0-220 Lab Interpretation (test code = Normal 31261-3) [facility] HospitalaPTT2020-04-19 23:56:00 Test Item Value Reference Range Interpretation Comments APTT Patient (test See_Comment [Automat ed code = 3173-2) message] The system which generated this result transmitted reference range : 23 - 38 Seconds . The reference range was not used to interpr et this result as normal/abnormal . ALYSSA (test code = ALYSSA) The [facility] patient population mean normal value for aPTT is 30 seconds. Lab Interpretation Normal (test code = 61760-9) [facility] HospitalCBC WITH [id number] 23:46:00 Test Item Value Reference Range Interpretation [...] RDW-SD (test code = 48.3 fL 38.5-51.6 05378-5) RDW-CV (test code = 14.7 % 12.1-15.4 788-0) PLT (test code = See_Comment [Automated 777-3) message] The sy stem which generated this result transmitted reference range : 150 - 328 10*3/ ?L. The reference r corey was not used to interpret this result as normal/abnormal . MPV (test code = 9.8 fL 9.8-13 77504-9) NRBC/100 WBC (test See_Comment [Automat ed code = 0052756509) message] The system which generated this result transmitted reference range : 0.0 - 10.0 /100 WBCs. The refer ence range was not u sed to interpret th is result as normal/abnormal . NRBC x10^3 (test code <0.01 See_Comment [Auto mated = 9548287819) message] The s ystem which generated this result transmitted reference range : 10*3/?L. The reference range was not used to interpret this result as normal/abnormal . GRAN MAT (NEUT) % 60.1 % (test code = 770-8) IMM GRAN % (test code 0.20 % = 6031609337) LYMPH % (test code = 26.4 % 736-9) MONO % (test code = 9.9 % 5905-5) EOS % (test code = 2.8 % 713-8) BASO % (test code = 0.6 % 706-2) GRAN MAT x10^3(ANC) 3.17 10*3/uL 1.99-6.95 (test code = 4130466765) IMM GRAN x10^3 (test <0.03 0-0.06 code = 0175565555) LYMPH x10^3 (test code 1.39 10*3/uL 1.09-3.23 = 731-0) MONO x10^3 (test code 0.52 10*3/uL 0.36-1.02 = 742-7) EOS x10^3 (test code = 0.15 10*3/uL 0.06-0.53 711-2) BASO x10^3 (test code 0.03 10*3/uL 0.01-0.09 = 704-7) Lab Interpretation Abnormal (test code = 46672-5) [facility] GLUCOSE (AUTOMATED)2020-03-02 16:04:00 Test Item Value Reference Range Interpretation Comments POCT GLU (test code = 4327922312) 214 mg/dL 70-110 H Lab Interpretation (test code = Abnormal 46673-1) [facility] GLUCOSE (AUTOMATED)2020-03-02 16:04:00 Test Item Value Reference Range Interpretation Comments POCT GLU (test code = 1209160158) 271 mg/dL 70-110 H Lab Interpretation (test code = Abnormal 00701-4) [facility] HospitalN-TERMINAL [id number] 09:43:00 Test Item Value Reference Range Interpretation Comments NT-proBNP (test code 1670 pg/mL See_Comment H [Autom ated = 7497521092) message] The system which generated this result transmitted reference range : <=450. The reference range was not used to interpret this result as normal/abnormal . ALYSSA (test code = ALYSSA) Biotin has been reported to cause a negative bias, interpret results relative to patient's use of biotin. Lab Interpretation Abnormal (test code = 50976-0) [facility] (NA, K, CL, CO2, GLUCOSE, BUN, CREATININE, CA)2020-03-02 09:33:00 Test Item Value Reference Range Interpretation Comments NA (test code = 143 mmol/L 135-145 1581547062) K (test code = 3.8 mmol/L 3.5-5 7954771556) CL (test code = 105 mmol/L 98-108 1945684484) CO2 TOTAL (test code = 28 mmol/L 23-31 6943765372) AGAP (test code = 2-16 2761770175) BUN (test code = 19 mg/dL 7-23 9504652727) GLUCOSE (test code = 152 mg/dL 70-110 H 8414577801) CREATININE (test code = 1.18 mg/dL 0.6-1.25 5269561865) CALCIUM (test code = 9.0 mg/dL 8.6-10.6 7194376251) eGFR Calculation mL/min/1.73m2 (Non-) (test code = 0243192839) eGFR Calculation mL/min/1.73m2 () (test code = 9103632690) ALYSSA (test code = ALYSSA) Association of [...] tests). Lab Interpretation Abnormal (test code = 35616-9) [facility] Test Item Value Reference Range Interpretation Comments MAGNESIUM (test code = 2702497063) 1.8 mg/dL 1.7-2.4 Lab Interpretation (test code = Normal 65572-5) [facility]POCT [facility]SE (AUTOMATED)2020-03-01 20:42:00 Test Item Value Reference Range Interpretation Comments POCT GLU (test code = 5385498983) 231 mg/dL 70-110 H Lab Interpretation (test code = Abnormal 80697-4) [facility] HospitalVITAMIN B12, [id number] 11:51:00 Test Item Value Reference Range Interpretation Comments VIT B12 (test code = 325 pg/mL 240-930 5567514691) ALYSSA (test code = ALYSSA) Biotin has been reported to cause a positive bias, interpret results relative to patient's use of biotin. Lab Interpretation (test Normal code = 29557-4) [facility] HospitalFOLATE2020-04-16 11:49:00 Test Item Value Reference Range Interpretation Comments FOLATE SER (test code = >20.0 3-20 H Slig ht hemolysis 1126489631) Lab Interpretation (test Abnormal code = 73980-7) [facility] HospitalPROCALCITONIN2020-04-16 10:49:00 Test Item Value Reference Range Interpretation Comments Procalcitonin (test 3.05 ng/mL <0.07 H code = 6570362750) ALYSSA (test code = ALYSSA) INTERPRETATION OF [...] lung abscess/empyema. For further information please refer to:[email or web address] Lab Interpretation Abnormal (test code = 05256-9) [facility] HospitalWENDY [id number] 09:58:00 Test Item Value Reference Range Interpretation Comments TROPONIN I (test 0.093 ng/mL See_Comment H [Automated code = 4897425251) message] The system which generated this result [...] ? Lab Interpretation Abnormal (test code = 72471-4) [facility] HospitalN-TERMINAL [id number] 09:55:00 Test Item Value Reference Range Interpretation Comments NT-proBNP (test code 4450 pg/mL See_Comment H [Autom ated = 9130279112) message] The system which generated this result transmitted reference range : <=450. The reference range was not used to interpret this result as normal/abnormal . ALYSSA (test code = ALYSSA) Biotin has been reported to cause a negative bias, interpret results relative to patient's use of biotin. Lab Interpretation Abnormal (test code = 56557-1) [facility] HospitalBasi Metabolic Panel (NA, K, CL, CO2, GLUCOSE, BUN, CREATININE, CA)2020-03-01 09:50:00 Test Item Value Reference Range Interpretation Comments NA (test code = 141 mmol/L 135-145 9583532249) K (test code = 3.5 mmol/L 3.5-5 4904621233) CL (test code = 105 mmol/L 98-108 2779317901) CO2 TOTAL (test code = 26 mmol/L 23-31 6236198615) AGAP (test code = 2-16 7064028759) BUN (test code = 13 mg/dL 7-23 5710298925) GLUCOSE (test code = 219 mg/dL 70-110 H 7216045186) CREATININE (test code = 1.01 mg/dL 0.6-1.25 4291689934) CALCIUM (test code = 8.7 mg/dL 8.6-10.6 6060878262) eGFR Calculation mL/min/1.73m2 (Non-) (test code = 4988338254) eGFR Calculation mL/min/1.73m2 () (test code = 7737627165) ALYSSA (test code = ALYSSA) Association of [...] tests). Lab Interpretation Abnormal (test code = 05142-1) [facility] HospitalMagnesium [id number] 09:50:00 Test Item Value Reference Range Interpretation Comments MAGNESIUM (test code = 9261474473) 1.9 mg/dL 1.7-2.4 Lab Interpretation (test code = Normal 71871-5) [facility] WITH [id number] 09:22:00 Test Item Value Reference Range Interpretation [...] RDW-SD (test code = 47.8 fL 38.5-51.6 94875-8) RDW-CV (test code = 14.8 % 12.1-15.4 788-0) PLT (test code = See_Comment L [Automated 777-3) message] The sy stem which generated this result transmitted reference range : 150 - 328 10*3/ ?L. The reference r corey was not used to interpret this result as normal/abnormal . MPV (test code = 9.9 fL 9.8-13 60937-5) NRBC/100 WBC (test See_Comment [Automat ed code = 3506397347) message] The system which generated this result transmitted reference range : 0.0 - 10.0 /100 WBCs. The refer ence range was not u sed to interpret th is result as normal/abnormal . NRBC x10^3 (test code <0.01 See_Comment [Auto mated = 6797514279) message] The s ystem which generated this result transmitted reference range : 10*3/?L. The reference range was not used to interpret this result as normal/abnormal . GRAN MAT (NEUT) % 66.0 % (test code = 770-8) IMM GRAN % (test code 0.30 % = 9200234752) LYMPH % (test code = 20.8 % 736-9) MONO % (test code = 9.5 % 5905-5) EOS % (test code = 2.8 % 713-8) BASO % (test code = 0.6 % 706-2) GRAN MAT x10^3(ANC) 4.44 10*3/uL 1.99-6.95 (test code = 1408600219) IMM GRAN x10^3 (test <0.03 0-0.06 code = 3582505557) LYMPH x10^3 (test code 1.40 10*3/uL 1.09-3.23 = 731-0) MONO x10^3 (test code 0.64 10*3/uL 0.36-1.02 = 742-7) EOS x10^3 (test code = 0.19 10*3/uL 0.06-0.53 711-2) BASO x10^3 (test code 0.04 10*3/uL 0.01-0.09 = 704-7) Lab Interpretation Abnormal (test code = 82784-1) [facility] HospitalGLYCOSYLATED HEMOGLOBIN (A1C)2020-03-01 06:49:00 Test Item Value [...] Indicated Lab Interpretation Abnormal (test code = 50163-3) [facility] HospitalURIC [id number] 06:25:00 Test Item Value Reference Range Interpretation Comments URIC ACID (test code = 8506530492) 2.3 mg/dL 3.6-8 L Lab Interpretation (test code = Abnormal 49775-8) [facility] HospitalSEDIMENTATION [id number] 05:25:00 Test Item Value Reference Range Interpretation Comments ESR (test code = See_Comment H [Automated message] 2897819204) The system [employer] generated this result transmitted ref erence range: 0 - 10 m m/HR. The reference r corey was not used to interpret this result as normal/abnor mal. Lab Interpretation (test Abnormal code = 97482-2) [facility] HospitalN-TERMINAL [id number] 04:07:00 Test Item Value Reference Range Interpretation Comments NT-proBNP (test code 4080 pg/mL See_Comment H [Autom ated = 1604637606) message] The system which generated this result transmitted reference range : <=450. The reference range was not used to interpret this result as normal/abnormal . ALYSSA (test code = ALYSSA) Biotin has been reported to cause a negative bias, interpret results relative to patient's use of biotin. Lab Interpretation Abnormal (test code = 99974-5) [facility] HospitalPOCT GLUCOSE (AUTOMATED)2020-03-01 03:42:00 Test Item Value Reference Range Interpretation Comments POCT GLU (test code = 3892789018) 190 mg/dL 70-110 H Lab Interpretation (test code = Abnormal 69812-2) [facility] HospitalTROPONIN [id number] 03:30:00 Test Item Value Reference Range Interpretation Comments TROPONIN I (test 0.098 ng/mL See_Comment H [Automated code = 0591765729) message] The system which generated this result [...] ? Lab Interpretation Abnormal (test code = 41340-9) [facility] HospitalHEPATIC FUNCTION PANEL (78558) (ALB,T.PRO,BILI T,BU/BC,ALT,AST,ALK PHOS)2020-03-01 03:24:00 Test Item Value Reference Range Interpretation Comments TOTAL BILI (test code = 4592213490) 2.2 mg/dL 0.1-1.1 H BILI UNCON (test code = 9057949387) 2.0 mg/dL 0.1-1.1 H BILI CONJ (test code = 9895517500) 0.0 mg/dL 0-0.3 T PROTEIN (test code = 5116974481) 6.7 g/dL 6.3-8.2 ALBUMIN (test code = 5030907633) 4.0 g/dL 3.5-5 ALK PHOS (test code = 4885064996) 48 U/L 34-122 ALTv (test code = 1742-6) 18 U/L 5-50 AST(SGOT) (test code = 0830136819) 57 U/L 13-40 H Lab Interpretation (test code = Abnormal 86523-5) [facility] HospitalPhosphorus [id number] 03:17:00 Test Item Value Reference Range Interpretation Comments PHOSPHORUS (test code = 3.1 mg/dL 2.5-5 Slig ht hemolysis 2307889048) Lab Interpretation (test Normal code = 45750-6) [facility] HospitalPROTHROMBIN TIME / [id number] 03:08:00 Test Item Value Reference Range Interpretation Comments PROTIME PATIENT (test See_Comment [Auto mated message] code = 5964-2) The system [employer] generated this result transmitted ref erence range: 12.0 - 1 4.7 Seconds. The re ference range was not u sed to interpret this result as normal/abnor mal. INR (test code = 6301-6) Nor mal INR <1.1; Warfarin Therap eutic range 2.0 to 3. 0 or 2.5 to 3.5, dep ending upon the indica tions. Lab Interpretation (test Normal code = 85054-0) [facility] HospitalCREATINE [id number] 03:01:00 Test Item Value Reference Range Interpretation Comments CK (test code = 2784725890) 68 U/L 33-194 Lab Interpretation (test code = Normal 23798-6) [facility] HospitalURIC [id number] 02:41:00 Test Item Value Reference Range Interpretation Comments URIC ACID (test code = 5618213827) 2.3 mg/dL 3.6-8 L Lab Interpretation (test code = Abnormal 64061-7) [facility] HospitalTHYROID STIMULATING [id number] 02:26:00 Test Item Value Reference Range Interpretation Comments TSH (test code = See_Comment [Automated message] 1482352303) The system [employer] generated this result transmitted ref erence range: 0.45 - 4 .70 mIU/L. The refe rence range was not u sed to interpret this result as normal/abnor mal. Lab Interpretation (test Normal code = 77173-5) [facility] HospitalN-TERMINAL [id number] 02:04:00 Test Item Value Reference Range Interpretation Comments NT-proBNP (test code 4390 pg/mL See_Comment H [Autom ated = 1226718604) message] The system which generated this result transmitted reference range : <=450. The reference range was not used to interpret this result as normal/abnormal . ALYSSA (test code = ALYSSA) Biotin has been reported to cause a negative bias, interpret results relative to patient's use of biotin. Lab Interpretation Abnormal (test code = 59238-3) [facility] HospitalMAGNESIUM2020-04-16 02:01:00 Test Item Value Reference Range Interpretation Comments MAGNESIUM (test code = 8320110065) 1.5 mg/dL 1.7-2.4 L Lab Interpretation (test code = Abnormal 67087-7) [facility] HospitalLIPASE2020-04-16 00:22:00 Test Item Value Reference Range Interpretation Comments LIPASE (test code = 5640955166) 68 U/L 0-220 Lab Interpretation (test code = Normal 56891-6) [facility] HospitalCORONAVIRUS COVID-19 [id number] 23:42:00 Test Item Value Reference Range Interpretation Comments SARS-CoV-2 (test code = Not Detected Not Detected 72713-7) ALYSSA (test code = ALYSSA) ID NOW COVID-19 Assay is an isothermal nucleic acid amplification test intended for the qualitative detection of nucleic acid from SARS-CoV-2 viral RNA in nasopharyngeal (JUDICIAL ADMINISTRATIVE ASSISTANT) specimens. It is used under Emergency Use [...] indicated. Lab Interpretation Normal (test code = 20007-8) [facility] HospitalXR CHEST 1 VW [id number] 23:26:02 No acute intrathoracic abnormality, specifically no [...] stimulating device overlie the mid thoracic spine. [facility], Radiant ResultsInft User - 02/29/2020 [...] have reviewed this study and agree with theabovereport.[facility] HospitalWendy [id number] 22:59:00 Test Item Value Reference Range Interpretation Comments TROPONIN I (test 0.071 ng/mL See_Comment H [Automated code = 7866335821) message] The system which generated this result [...] ? Lab Interpretation Abnormal (test code = 47325-8) [facility] Metabolic Panel (NA, K, CL, CO2, GLUCOSE, BUN, CREATININE, CA)2020-02-29 22:48:00 Test Item Value Reference Range Interpretation Comments NA (test code = 141 mmol/L 135-145 5268828843) K (test code = 3.2 mmol/L 3.5-5 L 1065595970) CL (test code = 104 mmol/L 98-108 8621851244) CO2 TOTAL (test code = 25 mmol/L 23-31 3860062282) AGAP (test code = 2-16 0474200992) BUN (test code = 12 mg/dL 7-23 3103369734) GLUCOSE (test code = 250 mg/dL 70-110 H 8205253443) CREATININE (test code = 1.02 mg/dL 0.6-1.25 0530762944) CALCIUM (test code = 8.9 mg/dL 8.6-10.6 6549863023) eGFR Calculation mL/min/1.73m2 (Non-) (test code = 2377182122) eGFR Calculation mL/min/1.73m2 () (test code = 7390046756) ALYSSA (test code = ALYSSA) Association of [...] tests). Lab Interpretation Abnormal (test code = 85606-5) [facility] WITH [id number] 22:41:00 Test Item Value Reference Range Interpretation [...] RDW-SD (test code = 46.6 fL 38.5-51.6 22602-7) RDW-CV (test code = 14.6 % 12.1-15.4 788-0) PLT (test code = See_Comment [Automated 777-3) message] The sy stem which generated this result transmitted reference range : 150 - 328 10*3/ ?L. The reference r corey was not used to interpret this result as normal/abnormal . MPV (test code = 9.7 fL 9.8-13 L 64188-7) NRBC/100 WBC (test See_Comment [Automat ed code = 9311776824) message] The system which generated this result transmitted reference range : 0.0 - 10.0 /100 WBCs. The refer ence range was not u sed to interpret th is result as normal/abnormal . NRBC x10^3 (test code <0.01 See_Comment [Auto mated = 0400980241) message] The s ystem which generated this result transmitted reference range : 10*3/?L. The reference range was not used to interpret this result as normal/abnormal . GRAN MAT (NEUT) % 68.6 % (test code = 770-8) IMM GRAN % (test code 0.30 % = 8526341292) LYMPH % (test code = 18.6 % 736-9) MONO % (test code = 10.1 % 5905-5) EOS % (test code = 1.8 % 713-8) BASO % (test code = 0.6 % 706-2) GRAN MAT x10^3(ANC) 4.29 10*3/uL 1.99-6.95 (test code = 0564454075) IMM GRAN x10^3 (test <0.03 0-0.06 code = 3586877176) LYMPH x10^3 (test code 1.16 10*3/uL 1.09-3.23 = 731-0) MONO x10^3 (test code 0.63 10*3/uL 0.36-1.02 = 742-7) EOS x10^3 (test code = 0.11 10*3/uL 0.06-0.53 711-2) BASO x10^3 (test code 0.04 10*3/uL 0.01-0.09 = 704-7) Lab Interpretation Abnormal (test code = 46659-1) [facility] HospitalLactic Acid Whole [id number] 22:38:00 Test Item Value Reference Range Interpretation Comments LACTIC ACID (test code = 1.88 mmol/L 0.3-2.6 5252515178) [facility] HospitalPOCT GLUCOSE (AUTOMATED)2020-01-17 18:18:00 Test Item Value Reference Range Interpretation Comments POCT GLU (test code = 8335397900) 290 mg/dL 70-110 H Lab Interpretation (test code = Abnormal 75453-9) [facility] HospitalTROPONIN [id number] 18:01:00 Test Item Value Reference Range Interpretation Comments TROPONIN I (test 0.065 ng/mL See_Comment H [Automated code = 9855001465) message] The system which generated this result [...] ? Lab Interpretation Abnormal (test code = 18586-2) [facility] HospitalaPTT2020-03-03 17:10:00 Test Item Value Reference Range Interpretation Comments APTT Patient (test See_Comment H [Automat ed code = 3173-2) message] The system which generated this result transmitted reference range : 23 - 38 Seconds . The reference range was not used to interpr et this result as normal/abnormal . ALYSSA (test code = ALYSSA) The [facility] patient population mean normal value for aPTT is 30 seconds. Lab Interpretation Abnormal (test code = 20395-2) [facility] HospitalPO[facility] GLUCOSE (AUTOMATED)2020-01-17 11:59:00 Test Item Value Reference Range Interpretation Comments POCT GLU (test code = 7930655094) 185 mg/dL 70-110 H Lab Interpretation (test code = Abnormal 60468-8) [facility] HospitalTROPONIN [id number] 11:23:00 Test Item Value Reference Range Interpretation Comments TROPONIN I (test 0.073 ng/mL See_Comment H [Automated code = 2770005906) message] The system which generated this result [...] ? Lab Interpretation Abnormal (test code = 04194-7) [facility] HospitalBasi Metabolic Panel (NA, K, CL, CO2, GLUCOSE, BUN, CREATININE, CA)2020-01-17 11:16:00 Test Item Value Reference Range Interpretation Comments NA (test code = 136 mmol/L 135-145 7038899596) K (test code = 3.3 mmol/L 3.5-5 L 9557918216) CL (test code = 101 mmol/L 98-108 6119206156) CO2 TOTAL (test code = 26 mmol/L 23-31 6770053129) AGAP (test code = 2-16 2664454615) BUN (test code = 19 mg/dL 7-23 9322642379) GLUCOSE (test code = 227 mg/dL 70-110 H 8191982938) CREATININE (test code = 1.33 mg/dL 0.6-1.25 H 2141301813) CALCIUM (test code = 9.1 mg/dL 8.6-10.6 5276704998) eGFR Calculation mL/min/1.73m2 (Non-) (test code = [id number]) eGFR Calculation mL/min/1.73m2 () (test code = 7527278636) ALYSSA (test code = ALYSSA) Association of [...] tests). Lab Interpretation Abnormal (test code = 63524-8) [facility] Test Item Value Reference Range Interpretation Comments APTT Patient (test See_Comment H [Automat ed code = 3173-2) message] The system which generated this result transmitted reference range : 23 - 38 Seconds . The reference range was not used to interpr et this result as normal/abnormal . ALYSSA (test code = ALYSSA) The [facility] patient population mean normal value for aPTT is 30 seconds. Lab Interpretation Abnormal (test code = 47379-4) [facility] [id number] 10:43:00 Test Item Value Reference Range Interpretation Comments WBC (test code = See_Comment [Automated message] 6690-2) The system [employer] generated this result transmitted ref erence range: 4.20 - 1 0.70 10*3/?L. The re ference range was not u sed to interpret this result as normal/abnor mal. RBC (test code = See_Comment [Automated message] 129-8) The system [employer] generated this result transmitted ref erence range: [...] RDW-SD (test code 41.5 fL 38.5-51.6 = 56953-5) RDW-CV (test code 12.8 % 12.1-15.4 = 788-0) PLT (test code = See_Comment [Automated message] 607-3) The system [employer] generated this result transmitted ref erence range: 150 - 32 8 10*3/?L. The re ference range was not u sed to interpret this result as normal/abnor mal. MPV (test code = 10.7 fL 9.8-13 79252-2) NRBC/100 WBC (test See_Comment [Automat ed message] code = 2964364783) The syste m which generated this result transmitted ref erence range: 0.0 - 10 .0 /100 WBCs. The refer ence range was not u sed to interpret this result as normal/abnor mal. NRBC x10^3 (test <0.01 See_Comment [Automated message] code = 3025460599) The syste m which generated this result transmitted ref erence range: 10*3/?L. The reference range was not used to interpr et this result as normal/abnormal . GRAN MAT (NEUT) % 56.1 % (test code = 770-8) IMM GRAN % (test 0.30 % code = 1428170151) LYMPH % (test code 29.5 % = 736-9) MONO % (test code 9.9 % = 5905-5) EOS % (test code = 3.3 % 713-8) BASO % (test code 0.9 % = 706-2) GRAN MAT 3.73 10*3/uL 1.99-6.95 x10^3(ANC) (test code = 7220492270) IMM GRAN x10^3 <0.03 0-0.06 (test code = 7888918814) LYMPH x10^3 (test 1.96 10*3/uL 1.09-3.23 code = 731-0) MONO x10^3 (test 0.66 10*3/uL 0.36-1.02 code = 742-7) EOS x10^3 (test 0.22 10*3/uL 0.06-0.53 code = 711-2) BASO x10^3 (test 0.06 10*3/uL 0.01-0.09 code = 704-7) [facility] GLUCOSE (AUTOMATED)2020-01-17 01:49:00 Test Item Value Reference Range Interpretation Comments POCT GLU (test code = 6005055621) 305 mg/dL 70-110 H Lab Interpretation (test code = Abnormal 71405-3) [facility] GLUCOSE (AUTOMATED)2020-01-17 00:01:00 Test Item Value Reference Range Interpretation Comments POCT GLU (test code = 3143050816) 271 mg/dL 70-110 H Lab Interpretation (test code = Abnormal 30277-0) [facility] 22:23:00 Test Item Value Reference Range Interpretation Comments APTT Patient (test See_Comment H [Automat ed code = 3173-2) message] The system which generated this result transmitted reference range : 23 - 38 Seconds . The reference range was not used to interpr et this result as normal/abnormal . ALYSSA (test code = ALYSSA) The [facility] patient population mean normal value for aPTT is 30 seconds. Lab Interpretation Abnormal (test code = 03581-2) [facility] [id number] 21:22:00 Test Item Value Reference Range Interpretation Comments TROPONIN I (test 0.061 ng/mL See_Comment H [Automated code = 4003522126) message] The system which generated this result [...] ? Lab Interpretation Abnormal (test code = 35226-4) [facility]2020-01-16 17:37:00 Test Item Value Reference Range Interpretation Comments POCT GLU (test code = 9824759174) 271 mg/dL 70-110 H Lab Interpretation (test code = Abnormal 68627-2) [facility] 12:47:00 Test Item Value Reference Range Interpretation Comments APTT Patient (test See_Comment HH [Automat ed code = 3173-2) message] The system which generated this result transmitted reference range : 23 - 38 Seconds . The reference range was not used to interpr et this result as normal/abnormal . ALYSSA (test code = ALYSSA) The [facility] patient population mean normal value for aPTT is 30 seconds. Lab Interpretation Abnormal (test code = 57014-1) [facility] [id number] 12:35:00 Test Item Value Reference Range Interpretation Comments TROPONIN I (test 0.074 ng/mL See_Comment H [Automated code = 4775271463) message] The system which generated this result [...] ? Lab Interpretation Abnormal (test code = 58160-6) [facility] HospitalLIPID PANEL (46148)(TOTAL CHOLESTEROL, TRIGLYCERIDES, HDL)2020-01-16 12:23:00 Test Item Value Reference Range Interpretation Comments CHOL (test code = 95 mg/dL 120-200 L 8998137087) HDL (test code = 44 mg/dL >40 3099803219) HDLC RATIO (test code = See_Comment [Au tomated message] 0727243393) The system [employer] generated this result transmitted ref erence range: <=5.0. T he reference range was not used to int erpret this result as normal/abnormal . TRIG (test code = 89 mg/dL 30-170 5490741099) LDL CHOL (test code = 33 mg/dL See_Comment [Auto mated message] 18794-7) The system [employer] generated this result transmitted ref erence range: <=160. T he reference range was not used to int erpret this result as normal/abnormal . VLDL (test code = 18 mg/dL 5-60 4336136794) Lab Interpretation (test Abnormal code = 10049-1) [facility] HospitalGlycosylated Hemoglobin (A1C)2020-01-16 09:03:00 Test Item Value [...] Indicated Lab Interpretation Abnormal (test code = 57137-2) [facility]Critical [id number] 05:48:18Charanjit Heck MD ? ? 01/15/2020 11:48 [...] old charts and examination of patientUnTexas Health FriscoProthrombin Time (PT) / [id number] 05:28:00 Test Item Value Reference Range Interpretation [...] tions. Lab Interpretation (test Normal code = 30064-8) [facility] 05:27:00 Test Item Value Reference Range Interpretation Comments APTT Patient (test See_Comment [Automat ed code = 3173-2) message] The system which generated this result transmitted reference range : 23 - 38 Seconds . The reference range was not used to interpr et this result as normal/abnormal . ALYSSA (test code = ALYSSA) The [facility] patient population mean normal value for aPTT is 30 seconds. Lab Interpretation Normal (test code = 27924-1) [facility] HospitalTroponin [id number] 05:11:00 Test Item Value Reference Range Interpretation Comments TROPONIN I (test 0.075 ng/mL See_Comment H [Automated code = 3936064343) message] The system which generated this result [...] ? Lab Interpretation Abnormal (test code = 15457-8) [facility] HospitalN-TERMINAL [id number] 05:08:00 Test Item Value Reference Range Interpretation Comments NT-proBNP (test code 896 pg/mL See_Comment H [Autom ated = 6177487929) message] The system which generated this result transmitted reference range : <=450. The reference range was not used to interpret this result as normal/abnormal . ALYSSA (test code = ALYSSA) Biotin has been reported to cause a negative bias, interpret results relative to patient's use of biotin. Lab Interpretation Abnormal (test code = 58017-1) [facility] HospitalBasi Metabolic Panel (NA, K, CL, CO2, GLUCOSE, BUN, CREATININE, CA)2020-01-16 04:59:00 Test Item Value Reference Range Interpretation Comments NA (test code = 136 mmol/L 135-145 3318877491) K (test code = 4.0 mmol/L 3.5-5 7426534284) CL (test code = 101 mmol/L 98-108 3897318564) CO2 TOTAL (test code = 27 mmol/L 23-31 3953140690) AGAP (test code = 2-16 1029984404) BUN (test code = 17 mg/dL 7-23 5007373977) GLUCOSE (test code = 445 mg/dL 70-110 H 8878054094) CREATININE (test code = 1.29 mg/dL 0.6-1.25 H 9559034103) CALCIUM (test code = 8.8 mg/dL 8.6-10.6 4729425322) eGFR Calculation mL/min/1.73m2 (Non-) (test code = 5118842099) eGFR Calculation mL/min/1.73m2 () (test code = 8582192994) ALYSSA (test code = ALYSSA) Association of [...] tests). Lab Interpretation Abnormal (test code = 96023-0) [facility] Hospital[facility] Function Panel (ALB, T.PRO, BILI T, BU/BC, ALT, AST, ALK PHOS)2020-01-16 04:59:00 Test Item Value Reference Range Interpretation Comments TOTAL BILI (test code = 0256768949) 1.3 mg/dL 0.1-1.1 H BILI UNCON (test code = 9592328422) 1.1 mg/dL 0.1-1.1 BILI CONJ (test code = 5822157258) 0.0 mg/dL 0-0.3 T PROTEIN (test code = 8658977402) 6.3 g/dL 6.3-8.2 ALBUMIN (test code = 1685867664) 3.9 g/dL 3.5-5 ALK PHOS (test code = 0907876472) 67 U/L 34-122 ALTv (test code = 1742-6) 15 U/L 5-50 AST(SGOT) (test code = 0231643088) 23 U/L 13-40 Lab Interpretation (test code = Abnormal 49798-4) [facility] 1 [id number] 04:54:13Impression: Moderate cardiomegaly without acute pulmonary process. RL: 460 AFC: 09473 Indication: Chest pain Comparison: None available Findings: Single AP view of the chest. The cardiopericardial silhouette ismoderately enlarged. The lungs are clear bilaterally. The visualized bonythorax is intact. A thoracic neurostimulator device is in place. [facility], Radiant Results Inft User - 01/15/2020 10:55 PM CSTIndication: Chest painComparison: None availableFindings: Single AP view of the chest. The cardiopericardial silhouette ismoderately enlarged. The lungs are clear bilaterally. The visualized bonythorax is intact. A thoracic neurostimulator device is in place.IMPRESSIONImpression:Moderate cardiomegaly without acute pulmonary process.RL: 460AFC: [id number] signed by Esperanza Rosado MD, PhD at 01/15/2020 10:54 PMUnWest [facility] WITH [id number] 04:51:00 Test Item Value Reference Range Interpretation [...] RDW-SD (test code = 40.7 fL 38.5-51.6 78650-8) RDW-CV (test code = 12.8 % 12.1-15.4 788-0) PLT (test code = See_Comment L [Automated 777-3) message] The sy stem which generated this result transmitted reference range : 150 - 328 10*3/ ?L. The reference r corey was not used to interpret this result as normal/abnormal . MPV (test code = 10.6 fL 9.8-13 11745-1) IPF % (test code = 2.8 % 1.2-10.7 Platelet count 0181487631) measured by fluorescence method. NRBC/100 WBC (test See_Comment [Automat ed code = 7042466893) message] The system which generated this result transmitted reference range : 0.0 - 10.0 /100 WBCs. The refer ence range was not u sed to interpret th is result as normal/abnormal . NRBC x10^3 (test code <0.01 See_Comment [Auto mated = 2782222822) message] The s ystem which generated this result transmitted reference range : 10*3/?L. The reference range was not used to interpret this result as normal/abnormal . GRAN MAT (NEUT) % 56.0 % (test code = 770-8) IMM GRAN % (test code 0.20 % = 0040173375) LYMPH % (test code = 30.5 % 736-9) MONO % (test code = 9.6 % 5905-5) EOS % (test code = 2.8 % 713-8) BASO % (test code = 0.9 % 706-2) GRAN MAT x10^3(ANC) 2.98 10*3/uL 1.99-6.95 (test code = 5976621283) IMM GRAN x10^3 (test <0.03 0-0.06 code = 8321747525) LYMPH x10^3 (test code 1.62 10*3/uL 1.09-3.23 = 731-0) MONO x10^3 (test code 0.51 10*3/uL 0.36-1.02 = 742-7) EOS x10^3 (test code = 0.15 10*3/uL 0.06-0.53 711-2) BASO x10^3 (test code 0.05 10*3/uL 0.01-0.09 = 704-7) Lab Interpretation Abnormal (test code = 97036-1) [facility]"
[2022-04-18] MEDS ORDERED: HYDROCODONE/APAP 5/325 MG TAB ONE (22:43)
[2022-04-18] MEDS ORDERED: DIAZEPAM 5 MG TABLET ONE (22:43)
--- NOTE | 2022-04-18 23:35 | EDPHYS ---
Physician Documentation [facility] Name: Demetrius Sarmiento Age: 81 yrs Sex: Male : 1940 Arrival Date: 04/18/2022 Time: 22:03 Bed 4 Private MD: ED Physician Robert Clements HPI: 04/18 23:34 This 81 yrs old Male presents to ER via Ambulatory with complaints of Left Side Pain. ms3 23:34 The patient presents with pain that is acute, with no known mechanism of injury. The ms3 symptoms are located in the low back. Onset: The symptoms/episode began/occurred 5 day(s) ago. The pain does not radiate. Associated signs and symptoms: Pertinent negatives: abdominal pain, incontinence, nausea, numbness, urinary retention, vomiting, weakness. The problem was sustained from unknown cause. Modifying factors: The patient symptoms are alleviated by nothing, the patient symptoms are aggravated by nothing. Severity of symptoms: At their worst the symptoms were severe, in the emergency department the symptoms are unchanged. Historical: - Allergies: 22:42 No Known Allergies; tw5 - PMHx: 22:42 diabetes mellitus; Hypercholesterolemia; Hypertensive disorder; NC; sciatica; tw5 - Immunization history:: Flu vaccine is up to date. - Social history:: Smoking status: Patient denies any tobacco usage or history of. ROS: 23:34 Constitutional: Negative for fever, and chills. ENT: Negative for injury, pain, and ms3 discharge, Neck: Negative for injury, pain, and swelling, Cardiovascular: Negative for chest pain, and palpitations. Respiratory: Negative for shortness of breath, cough, wheezing, and pleuritic chest pain, Abdomen/GI: Negative for abdominal pain, nausea, vomiting, diarrhea, and constipation, MS/Extremity: Negative for injury and deformity, Skin: Negative for injury, rash, and discoloration, Neuro: Negative for headache, weakness, numbness, tingling. 23:34 Back: Positive for pain at rest, pain with movement. 23:34 All other systems are negative. Exam: 23:34 Constitutional: This is a well developed, well nourished patient who is awake, alert, ms3 and in no acute distress. Head/Face: Normocephalic, atraumatic. Neck: Trachea midline, no cervical lymphadenopathy. Supple, full range of motion without nuchal rigidity, or vertebral point tenderness. No Meningismus. Chest/axilla: Normal chest wall appearance and motion. Nontender with no deformity. Cardiovascular: Regular rate and rhythm with a normal S1 and S2. No gallops, murmurs, or rubs. Normal PMI, no JVD. No pulse deficits. Respiratory: Lungs have equal breath sounds bilaterally, clear to auscultation and percussion. No rales, rhonchi or wheezes noted. No increased work of breathing, no retractions or nasal flaring. Abdomen/GI: Soft, non-tender, with normal bowel sounds. No distension or tympany. No guarding or rebound. No evidence of tenderness throughout. Back: No spinal tenderness. No costovertebral tenderness. Full range of motion. Skin: Warm, dry with normal turgor. Normal color with no rashes, no lesions, and no evidence of cellulitis. MS/ Extremity: Pulses equal, no cyanosis. Neurovascular intact. Full, normal range of motion. Neuro: Awake and alert, GCS 15, oriented to person, place, time, and situation. Cranial nerves II-XII grossly intact. Motor strength 5/5 in all extremities. Sensory grossly intact. Cerebellar exam normal. Normal gait. Psych: Awake, alert, with orientation to person, place and time. Behavior, mood, and affect are within normal limits. Vital Signs: 22:40 BP 114 / 78; Pulse 110; Resp 20; Temp 98.5(O); Pulse Ox 100% ; Weight 77.11 kg; Height tw5 5 ft. 7 in. (170.18 cm); Pain 10/10; 22:40 Body Mass Index 26.63 (77.11 kg, 170.18 cm) tw5 MDM: 22:21 Patient medically screened. ms3 23:34 Differential diagnosis: Sciatica vs DDD vs strain. Data reviewed: vital signs, nurses ms3 notes. Counseling: I had a detailed discussion with the patient and/or guardian regarding: the historical points, exam findings, and any diagnostic results supporting the discharge/admit diagnosis, the need for outpatient follow up, to return to the emergency department if symptoms worsen or persist or if there are any questions or concerns that arise at home. ED course: Discussed physical exam findings with patient. Patient to follow-up with primary care physician in 2 to 3 days. Patient understands and agrees with plan. All questions were answered. Return precautions discussed include worsening symptoms, or any other concerns. On reevaluation patient is alert and oriented, in no apparent distress, nontoxic-appearing, speaking full sentences, ambulatory in emergency department.. Administered Medications: 22:46 Drug: HYDROcodone-acetaminophen 5 mg-325 mg 1 tabs Route: PO; 04/19 00:00 Follow up: Response: No adverse reaction; RASS: Alert and Calm (0) 04/18 22:46 Drug: Valium (diazepam) 5 mg Route: PO; 04/19 00:00 Follow up: Response: No adverse reaction Disposition Summary: 04/18/22 23:34 Discharge Ordered Location: Home ms3 Condition: Stable ms3 Diagnosis - Lumbago with sciatica, left side ms3 Followup: ms3 - With: Vlad Quarles DO - When: 2 - 3 days - Reason: Re-evaluation by your physician Discharge Instructions: - Discharge Summary Sheet ms3 - Sciatica ms3 Forms: - Medication Reconciliation Form ms3 - Thank You Letter ms3 - Antibiotic Education ms3 - Prescription Opioid Use ms3 Prescriptions: - Cyclobenzaprine 5 mg Oral Tablet - take 1 tablet by ORAL route 3 times per day As needed; 15 tablet; Refills: 0, ms3 Product Selection Permitted Signatures: Robert Clements DO DO ms3 Tenisha Villareal tw5
--- NOTE | 2022-04-18 23:35 | ER ---
Nurse's Notes [facility] Name: Demetrius Sarmiento Age: 81 yrs Sex: Male : 1940 Arrival Date: 04/18/2022 Time: 22:03 Bed 4 Private MD: Diagnosis: Lumbago with sciatica, left side Presentation: 04/18 22:40 Chief complaint: Patient states: "I am here for pain.". Coronavirus screen: Vaccine tw5 status: Patient reports receiving the 2nd dose of the covid vaccine. moderna. Ebola Screen: Patient negative for fever greater than or equal to 101.5 degrees Fahrenheit, and additional compatible Ebola Virus Disease symptoms Patient denies exposure to infectious person. Patient denies travel to an Ebola-affected area in the 21 days before illness onset. Initial Sepsis Screen: Does the patient meet any 2 criteria? RR > 20 per min. HR > 90 bpm. Does the patient have a suspected source of infection? No. Patient's initial sepsis screen is negative. Risk Assessment: Do you want to hurt yourself or someone else? Patient reports no desire to harm self or others. Onset of symptoms was April 16, 2022. 22:40 Method Of Arrival: Ambulatory tw5 22:40 Acuity: LANCE 4 tw5 Triage Assessment: 22:42 General: Appears uncomfortable, Behavior is anxious. Pain: Complains of pain in left tw5 upper thigh, left quadriceps and left knee Pain currently is 10 out of 10 on a pain scale. Noted to be moaning, Constant loud moaning sound with each exhale. Historical: - Allergies: 22:42 No Known Allergies; tw5 - PMHx: 22:42 diabetes mellitus; Hypercholesterolemia; Hypertensive disorder; PA; sciatica; tw5 - Immunization history:: Flu vaccine is up to date. - Social history:: Smoking status: Patient denies any tobacco usage or history of. Screenin:43 Abuse screen: Denies threats or abuse. Denies injuries from another. Nutritional tw5 screening: No deficits noted. Tuberculosis screening: No symptoms or risk factors identified. Fall Risk None identified. Assessment: 22:43 General: Appears in no apparent distress. Behavior is calm, cooperative, appropriate tw5 for age. Pain: Pain currently is 10 out of 10 on a pain scale. Neuro: Level of Consciousness is awake, alert, obeys commands. Respiratory: Airway is patent. 04/19 00:00 Reassessment: No changes from previously documented assessment. tw5 00:00 General: "I feel better, but not enough.". tw5 Vital Signs: 04/18 22:40 BP 114 / 78; Pulse 110; Resp 20; Temp 98.5(O); Pulse Ox 100% ; Weight 77.11 kg; Height tw5 5 ft. 7 in. (170.18 cm); Pain 10/10; 22:40 Body Mass Index 26.63 (77.11 kg, 170.18 cm) tw5 ED Course: 22:03 Patient arrived in ED. ja2 22:06 Robert Clements DO is Attending Physician. ms3 22:35 Tenisha Villareal is Primary Nurse. tw5 22:42 Triage completed. tw5 22:42 Arm band placed on Patient placed in an exam room. tw5 22:43 Patient has correct armband on for positive identification. Call light in reach. Side tw5 rails up X2. Client placed on continuous cardiac and pulse oximetry monitoring. NIBP monitoring applied. 22:43 No provider procedures requiring assistance completed. Patient did not have IV access tw5 during this emergency room visit. 23:34 Vlad Quarles DO is Referral Physician. ms3 Administered Medications: 22:46 Drug: HYDROcodone-acetaminophen 5 mg-325 mg 1 tabs Route: PO; tw04/19 00:00 Follow up: Response: No adverse reaction; RASS: Alert and Calm (0) tw5 04/18 22:46 Drug: Valium (diazepam) 5 mg Route: PO; tw5 04/19 00:00 Follow up: Response: No adverse reaction tw5 Medication: 04/18 22:43 VIS not applicable for this client. tw5 Outcome: 23:34 Discharge ordered by . ms3 04/19 00:01 Discharged to home via wheelchair. tw5 Condition: stable Discharge instructions given to patient, Instructed on discharge instructions, follow up and referral plans. Demonstrated understanding of instructions, follow-up care, medications, Prescriptions given X 1. 00:01 Patient left the ED. tw5 Signatures: Robert Clements DO DO ms3 Cintia Guillory ja2 Tenisha Villareal tw5
[2022-04-19 00:45] VITALS: BP 114/78; TEMP 98.5; O2SAT 100
== END 2022-04-19 00:01 | disposition home or self-care (01) ==
LOC: ER 22:01
DX: M54.42 Lumbago with sciatica, left side (principal); E11.9 Type 2 diabetes mellitus without complications; I10 Essential (primary) hypertension
CPT/HCPCS: 99283

== ENCOUNTER 2022-04-28 05:18 | Emergency (ER) | payer OTHER ==
--- OUTSIDE RECORDS SUMMARY | 2022-04-28 05:31 | XMS REPORT | Continuity of Care Document ---
:1940 Author Organization [facility] t Address [address] [place] [address] Care Team Providers Name Role Phone Andres GARZA Primary Care Physician Unavailable Denny Attending Clinician Unavailable Lester Attending Clinician Unavailable RAJINDER S Attending Clinician Unavailable Rajinder PAC, S Attending Clinician DANIELLE MURGUIA Attending Clinician Unavailable Lulú AGUILAR Attending Clinician Unavailable Lulú Aguilar DO Attending Clinician ATTANUM Attending Clinician Unavailable LAUREN Attending Clinician Unavailable [...] Number Effective Date Expiration Date Stacy torres [facility] JABIER [id number] 2020 00:00:00 [facility] [id number] 2019 DUAL COMPLETE HMO 00:00:00 MEDICAID OF [place] [id number] 2018 00:00:00 Problems Condition Condition Condition Status Onset Resolution Last Treating Co mments Source Name Details Category Date Date Treatment Clinician Date Unstable Unstable Disease Active 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 5-07 ity of 00:00: 00 Medical Branch ALBA (acute ALBA (acute Disease Active 2020- U nivers kidney kidney 4-21 ity of injury) injury) 00:00: 00 Medical Branch Chest pain Chest pain Disease Active 2020- U nivers 4-21 ity of 00:00: [place] [facility] Chest pain Chest pain Disease Active 2020-0 U 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 4-15 it y of 00:00: [place] 00 Medical Branch 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 3-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 00:00: [place] and and 00 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 2018- U nivers lobe lobe 1-06 ity of pneumonia pneumonia 00:00: [facility] s 00 Medical Branch PNA PNA [...] Active 2019- Univers 0-23 ity of 00:00: [place] 00 Medical Branch CHF CHF Disease Active [...] 00:00: [place] involving involving 00 Medi birdie [place] Branch 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 00:00: [place] disease disease 00 Medical Branch Coronary Coronary Disease Active Unive rs artery artery 1-27 ity of disease disease 00:00: [place] involving involving 00 Medi birdie [place] 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 tobacco [facility] Exposure to 2022-04-06 2022-04-16 Not sure University SARS-CoV-2 (event) 00:00:00 22:24:00 [facility] Alcohol intake 2022-03-01 2022-03-01 Current University of 00:00:00 00:00:00 non-drinker of [facility] alcohol [facility] (finding) Cigarettes smoked 2018-12-11 2018-12-11 [facility] ity of current (pack per 00:00:00 00:00:00 [facility] ) - Reported Branch Cigarette 2018-12-11 2018-12-11 University of pack-years 00:00:00 00:00:00 [facility] Tobacco use and 2018-12-11 2018-12-11 Former user Universi ty of exposure 00:00:00 00:00:00 [facility] Sex Assigned At [birth year] Universit y of 00:00:00 00:00:00 [facility] Smoking Status Start Date Stop Date Source Former smoker 2018-12-11 00:00:00 2018-12-11 00:00:00 [facility] Medications Ordered Filled Start Stop Current Ordering Indication Dosage Frequency Signature Comments Components Source Medication Medication Date Date Medication? Clinician (SIG) Name Name FENTanyl PF No 25ug 25 mcg, Un mel (SUBLIMAZE 03-0116 Intramuscu it y of (PF)) 16:45: 16:23 lar, ONCE, [place] injection 00 :00 1 dose, On Medi birdie 25 mcg [facility] 03/01/22 at 1145, Routine cyclobenzap No 10mg 10 mg, Uni vers rine 03-0116 Oral, ity of (FLEXERIL) 14:00: 12:59 ONCE, 1 [place] tablet 10 00 :00 dose, On Medica l mg [facility] 03/01/22 at 0900, Routine HYDROcodone 2021- No 1{tbl} 1 tablet, Univers -acetaminop 03-01-16 Oral, ity of hen (NORCO 14:00: 12:59 [...] 03/01/22 at 0900, 1 mL cyclobenzap Yes [id number] 10mg Take 1 Univers rine 10 mg 4-16 tablet by ity of tablet 00:00: mouth 3 [place] 00 (three) Medical times Branch daily as needed for Muscle Spasms. cyclobenzap Yes [id number] 10mg Take 1 Univers rine 10 mg 4-16 tablet by ity of tablet 00:00: mouth 3 [place] 00 (three) Medical times Branch daily as needed for Muscle Spasms. aspirin 81 2020-11- No [id number] 81mg Take 1 Univers mg chewable 2-04 12- tablet by it y of tablet 00:00: 05:59 mouth [place] 00 :00 daily for Medical 30 days. Branch clopidogreL 2020-11 No [id number] 75mg Take 1 Univers 75 mg 2-04 12- tablet by ity of tablet 00:00: 05:59 mouth [place] 00 :00 daily for Medical 30 days. Branch furosemide 2020-11- No [id number] 20mg Take 1 Univers 20 mg 2-04 12- tablet by ity of tablet 00:00: 05:59 mouth [place] 00 :00 daily for Medical 30 days. Branch aspirin 81 2020-11- No [id number] 81mg Take 1 Univers mg chewable 2-04 12- tablet by it y of tablet 00:00: 05:59 mouth [place] 00 :00 daily for Medical 30 days. Branch clopidogreL 2020-11- No [id number] 75mg Take 1 Univers 75 mg 2-19 - tablet by ity of tablet 00:00: 05:59 mouth [place] 00 :00 daily for Medical 30 days. Branch furosemide 2020-11- No [id number] 20mg Take 1 Univers 20 mg 01-04 tablet by ity of tablet 00:00: 05:59 mouth [place] 00 :00 daily for Medical 30 days. Branch aspirin 81 2020-11- No [id number] 81mg Take 1 Univers mg chewable 01-04 tablet by it y of tablet 00:00: 05:59 mouth [place] 00 :00 daily for Medical 30 days. Branch clopidogreL 2020-11- No [id number] 75mg Take 1 Univers 75 mg 01-04 tablet by ity of tablet 00:00: 05:59 mouth [place] 00 :00 daily for Medical 30 days. Branch furosemide 2020-11- No [id number] 20mg Take 1 Univers 20 mg 01-04 [...] 2-18 by mouth ity of 18:25: at [place] [address] bedtime. Medical Branch atorvastati 2020-11 Yes 40mg Take 40 mg Univers n 40 mg 2-18 by mouth ity of tablet 18:25: at [place] 21 bedtime. Medical Branch metoprolol 2020-11 Yes [...] Until Discontinu ed, Routine QUEtiapine 2020-11 Yes [id number] 25mg Take 1 Univers 25 mg 2-18 tablet by ity of tablet 00:00: mouth at [place] 00 bedtime as Medical needed Branch (agitation /insomnia) . QUEtiapine 2020-11 Yes [id number] 25mg Take 1 Univers 25 mg 2-18 tablet by ity of tablet 00:00: mouth at [place] 00 bedtime as Medical needed Branch (agitation /insomnia) . QUEtiapine 2020-11 Yes [id number] 25mg Take 1 Univers 25 mg 2-18 tablet by ity of tablet 00:00: mouth at [place] 00 bedtime as Medical needed Branch (agitation /insomnia) . QUEtiapine 2020-11 Yes [id number] 25mg Take 1 Univers 25 mg 2-18 tablet by ity of tablet 00:00: mouth at [place] 00 bedtime as Medical needed Branch (agitation /insomnia) . QUEtiapine 2020-11 Yes [id number] 25mg Take 1 Univers 25 mg 2-18 tablet by ity of tablet 00:00: mouth at [place] 00 bedtime as Medical needed Branch (agitation /insomnia) . isosorbide 2020-11- No [id number] 60mg Take 1 Univers mononitrate 2-18 01-18 tablet by it y of 60 mg 24 hr 00:00: 05:59 mouth 2 [place] tablet 00 :00 (two) Medical times Branch daily for 30 days. metoprolol 2020-11- No [id number] 37.5mg Take 1.5 Univers succinate 2-18 01-18 tablets by ity of XL 25 mg 24 00:00: 05:59 mouth 2 [place] hr tablet 00 :00 (two) Medical times Branch daily for 30 days. isosorbide 2020-11- No [id number] 60mg Take 1 Univers mononitrate 2-18 01-18 tablet by it y of 60 mg 24 hr 00:00: 05:59 mouth 2 [place] tablet 00 :00 (two) Medical times Branch daily for 30 days. metoprolol 2020-11 No [id number] 37.5mg Take 1.5 Univers succinate 2-18 -18 tablets by ity of XL 25 mg 24 00:00: 05:59 mouth 2 [place] hr tablet 00 :00 (two) Medical times Branch daily for 30 days. isosorbide 2020-11- No [id number] 60mg Take 1 Univers mononitrate 2-18 -18 tablet by it y of 60 mg 24 hr 00:00: 05:59 mouth 2 [place] tablet 00 :00 (two) Medical times Branch daily for 30 days. metoprolol 2020-11 No [id number] 37.5mg Take 1.5 Univers succinate -18 12-03 tablets by ity of XL 25 [...] mg 03:00: First dose [place] 00 on [facility] Medical 10/31/21 Branch at 2100, Until Discontinu ed, Routine atorvastati 2020-11 Yes 40mg 40 mg, Univ ers n (LIPITOR) 2-17 Oral, QHS, it y of tablet 40 03:00: First dose [place] mg 00 on [facility] Medical 10/31/21 Branch at 2100, Until Discontinu ed, Routine clopidogreL 2020-11 Yes 75mg 75 mg, Univ ers (PLAVIX) 2-16 Oral, ity of tablet 75 23:30: DAILY, [place] mg 00 First dose Medical on [facility] Branch 10/31/21 at 1730, Until Discontinu ed, Routine sulfur 2020-11- No [id number] 5mL 5 mL, Unive rs hexafluorid 01-01- Intravenou i ty of e microsphr 17:00: 17:00 s, ONCE, 1 [place] (LUMASON) 00 :00 dose, On Medica l injection 5 [place]havi Branch mL 10/31/21 at 1100, Routine
membership manager approving Restricted medication : MEGGAN CAMARA isosorbide 2020-11- No 120mg 120 mg, Un mel mononitrate 01-01- Oral, ity of (IMDUR) 24 15:00: 14:16 DAILY, [place] hr tablet 00 :38 First dose Medi birdie 120 mg on [facility] Branch 10/31/21 at 0900, Until Discontinu ed, Routine Sliding 2020-11 Yes Subcutaneo Univ ers Scale 2-16 us, AC+HS, ity of Insulin-Reg 13:30: First dose [place] ular + Fsbg 00 on [facility] Medica l Testing 10/31/21 Branch at 0730, Until Discontinu ed, Routine enoxaparin 2020-11- No 1mg/kg 80 mg Uni vers (LOVENOX) 01-01- (rounded ity o f injection 09:00: 14:17 from 78 mg [place] 80 mg 00 :35 = 1 mg/kg Medical ?78 kg), Branch Subcutaneo us, Q24H, First dose on Madhavi 10/31/21 at 0300, Until Discontinu ed, Routine aspirin 2020-11- No 325mg 325 mg, Unive rs tablet 325 01-01 Oral, ity of mg 08:45: 08:15 ONCE, 1 [place] 00 :00 dose, On Medical Madhavi Branch 10/31/21 at 0245, Routine glucagon 2020-11 Yes 1mg 1 mg, Univers (GLUCAGEN -16 Intramuscu ity of DIAGNOSTIC 08:16: lar, PRN, [place] KIT) 15 Starting Medical injection 1 on [facility] Branch mg 10/31/21 at 0216, Until [...] ity of mg 07:36: 05:31 [facility] [place] 09 :07 Starting Medical on [facility] Branch 10/31/21 at 0136, Until Madhavi [...] Yes 650mg 650 mg, Un mel en 16 Oral, ity of (TYLENOL) 05:31: Q6HPRN, [place] [...] 1 [place] #3) 300-30 00 :00 dose, Madhavi Medi birdie mg tablet 1 04/25/21 at [place] tablet 1400, ADAMA cyclobenzap 2020- No 10mg 10 mg, Uni vers rine 6-10 06-10 Oral, ONCE ity of (FLEXERIL) 19:00: 17:52 NOW, 1 [place] tablet 10 00 :00 dose, [place]havi Medic al mg 04/25/21 at Branch 1400, ADAMA cyclobenzap Yes [id number] 5mg Take 1 Univers rine 5 mg 6-10 tablet by ity o f tablet 00:00: mouth 3 [place] 00 (three) Medical times Branch daily. cyclobenzap Yes [id number] 5mg Take 1 Univers rine 5 mg 6-10 tablet by ity o f tablet 00:00: mouth 3 [place] 00 (three) Medical times Branch daily. cyclobenzap Yes [id number] 5mg Take 1 Univers rine 5 mg [...] left sided low back pain cyclobenzap Yes [id number] 5mg Take 1 Univers rine 5 mg [...] left sided low back pain cyclobenzap Yes [id number] 5mg Take 1 Univers rine 5 mg 6-10 tablet by ity o f tablet 00:00: mouth 3 [place] 00 (three) Medical times Branch daily. cyclobenzap 2021- No [id number] 5mg Take 1 Univers rine 5 mg [...] Medical 1,000 mg 05/24/20 at Branch 1100, AADMA traMADol 50 2020-0 2020- No [id number] 50mg [...] Yes 75mg 75 mg, Univ ers (PLAVIX) -09 Oral, ity of tablet 75 14:00: DAILY, [...] Discontinu ed, Routine aspirin 81 2020-0 Yes [id number] 81mg Take 1 U nivers mg chewable 5- tablet by ity of tablet 00:00: mouth [place] 00 daily with Medical breakfast. Branch furosemide 2020-0 Yes [id number] 20mg Take 1 U nivers 20 mg 5-09 tablet by ity of tablet 00:00: mouth [place] 00 daily. Medical Branch aspirin 81 2020-0 Yes [id number] 81mg Take 1 U nivers mg chewable 5-09 tablet by ity of tablet 00:00: mouth [place] 00 daily with Medical breakfast. Branch furosemide 2020-0 Yes [id number] 20mg Take 1 U nivers 20 mg 5-09 tablet by ity of tablet 00:00: mouth [place] 00 daily. Medical Branch aspirin 81 2020-0 Yes [id number] 81mg Take 1 U nivers mg chewable 5-09 tablet by ity of tablet 00:00: mouth [place] 00 daily with Medical breakfast. Branch furosemide 2020-0 Yes [id number] 20mg Take 1 U nivers 20 mg 5-09 tablet by ity of tablet 00:00: mouth [place] 00 daily. Medical Branch aspirin 81 2020-0 Yes [id number] 81mg Take 1 U nivers mg chewable 5-09 tablet by ity of tablet 00:00: mouth [place] 00 daily with Medical breakfast. Branch furosemide 2020-0 Yes [id number] 20mg Take 1 U nivers 20 mg 5-09 tablet by ity of tablet 00:00: mouth [place] 00 daily. Medical Branch aspirin 81 2020-0 Yes [id number] 81mg Take 1 U nivers mg chewable 5-09 tablet by ity of tablet 00:00: mouth [place] 00 daily with Medical breakfast. Branch furosemide 2020-0 Yes [id number] 20mg Take 1 U nivers 20 mg 5-09 tablet by ity of tablet 00:00: mouth [place] 00 daily. Medical Branch aspirin 81 2020-0 Yes [id number] 81mg Take 1 U nivers mg chewable 5-09 tablet by ity of tablet 00:00: mouth [place] 00 daily with Medical breakfast. Branch furosemide 2020-0 Yes [id number] 20mg Take 1 U nivers 20 mg 5-09 tablet by ity of tablet 00:00: mouth [place] 00 daily. Medical Branch aspirin 81 2020-0 Yes [id number] 81mg Take 1 U nivers mg chewable 5-09 tablet by ity of tablet 00:00: mouth [place] 00 daily with Medical breakfast. Branch furosemide 2020-0 Yes [id number] 20mg Take 1 U nivers 20 mg 5-09 tablet by ity of tablet 00:00: mouth [place] 00 daily. Medical Branch aspirin 81 2020-0 Yes [id number] 81mg Take 1 U nivers mg chewable 5-09 tablet by ity of tablet 00:00: mouth [place] 00 daily with Medical breakfast. Branch furosemide 2020-0 Yes [id number] 20mg Take 1 U nivers 20 mg 5-09 tablet by ity of tablet 00:00: mouth [place] 00 daily. Medical Branch aspirin 81 2020-0 Yes [id number] 81mg Take 1 U nivers mg chewable 5-09 tablet by ity of tablet 00:00: mouth [place] 00 daily with Medical breakfast. Branch furosemide 2020-0 Yes [id number] 20mg Take 1 U nivers 20 mg 5-09 tablet by ity of tablet 00:00: mouth [place] 00 daily. Medical Branch aspirin 81 2020-0 2021- No [id number] 81mg Take 1 Univers mg chewable 5- 12-18 tablet by it y of tablet 00:00: 00:00 mouth [place] 00 :00 daily with Medical breakfast. Branch furosemide 2020-0 2021- No [id number] 20mg Take 1 Univers 20 mg 5-09 12-18 tablet by ity of tablet 00:00: 00:00 mouth [place] 00 :00 daily. Medical Branch isosorbide 2020-0 2020- No [id number] 90mg Take 3 Univers mononitrate 5- 05-08 tablets by i ty of 30 mg 24 hr 00:00: 00:00 mouth [place] tablet 00 :00 daily. Medical Branch isosorbide 2020-0 2020- No [id number] 90mg Take 3 Univers mononitrate 5-09 05-08 tablets by i ty of 30 mg 24 hr 00:00: 00:00 mouth [place] tablet 00 :00 daily. Medical Branch maalox/lido 2020-0 2020- No 5mL 5 mL, [facility] 2 03-23 05-08 Oral, ity of %viscous 20:45: 20:56 ONCE, 1: 00 :00 dose, Fri Medical suspension 03/23/20 at [facility] (COMPOUNDED 1545, ) Routine maalox/lido 2020-0 2020- No 5mL 5 mL, [facility] sydni 2 508 05-08 Oral, ity of %viscous 20:45: 20:56 ONCE, 1: 00 :00 dose, Fri Medical suspension 03/23/20 at [facility] (COMPOUNDED 1545, ) Routine [...] Sliding 2020-0 Yes Subcutaneo Univ ers Scale - us, TID ity of Insulin - 13:00: [...] 2020-0 Yes 81mg 81 mg, Univers chewable 5- Oral, QAM ity of tablet 81 13:00: [...] mg 07:59: Q4HPRN, [place] 14 Starting Medical 03/23/20 Branch at 0259, Until Discontinu ed, Routine, Chest pain morpHINE 2020-0 Yes 2mg 2 mg, Slow Uni vers injection 2 03-23 IV Push, ity of mg 07:59: Q4HPRN, [place] 14 Starting Medical 03/23/20 Branch at 0259, Until Discontinu ed, Routine, Chest pain magnesium 2020-0 2020- No 2g 2 g, IV Univ ers sulfate in 03-23 Piggyback, it y of water 2 07:45: 07:49 ONCE, 1 [place] gram/50 mL 00 :00 dose, Fri Medi birdie (4 %) 03/23/20 at [facility] infusion 2 0245, g Routine KCL 2020-0 [...] Fri Medi birdie (4 %) 03/23/20 at [place] infusion 2 0245, g Routine KCL 2020-0 [...] Soln 4,000 dose, Madhavi Bran ch Units 5/7/20 at 2315, Routine heparin 2020-0 Yes 3000U [...] Cholecalcif 2020-0 2020- No Take by U ulises ann, [...] -08 Oral, ity of (TYLENOL) 02:51: Q6HPRN, [employer] tablet 650 29 Starting Medic al mg Madhavi 03/22/20 Branch at 215, Until Discontinu ed, Routine, Pain (scale 1-3) acetaminoph 2020-0 Yes 650mg 650 mg, Un mel en 08 Oral, ity of (TYLENOL) 02:51: Q6HPRN, [employer] tablet 650 29 Starting Medic al mg Madhavi 03/22/20 Branch at 215, Until Discontinu ed, Routine, Pain (scale 1-3) nitroglycer 2020-0 Yes .4mg 0.4 mg, Uni vers in 5-08 Sublingual ity of (NITROSTAT) 02:38: , Q5MIN [place] sublingual 00 PRN, 3 Medical tablet 0.4 doses, Branch mg Starting Madhavi 03/22/20 at 8, Until Discontinu ed, ADAMA, Chest pain nitroglycer 2020-0 Yes .4mg 0.4 mg, Uni vers in -08 Sublingual ity of (NITROSTAT) 02:38: , Q5MIN [place] sublingual 00 PRN, 3 Medical tablet 0.4 doses, Branch mg Starting [facility] 03/22/20 at 2138, Until Discontinu ed, ADAMA, Chest pain aspirin 2020-0 2020- No 324mg 324 mg, Unive rs chewable 5-08 05-08 Oral, ity of tablet 324 02:37: 02:51 ONCE, 1 [place] mg 00 :00 dose, Madhavi [facility] 03/22/20 at Branch 2145, ADAMA aspirin 2020-0 2020- No 324mg 324 mg, Unive rs chewable 5-08 05-08 Oral, ity of tablet 324 02:37: 02:51 ONCE, 1 [place] mg 00 :00 dose, [facility] 03/22/20 at Branch 2145, ADAMA isosorbide 2020-0 Yes [id number] 90mg Take 1.5 Univers mononitrate 5-08 tablets by it y of 60 mg 24 hr 00:00: mouth [place] tablet 00 daily. [facility] isosorbide 2020-0 Yes [id number] 90mg Take 1.5 Univers mononitrate 5-08 tablets by it y of 60 mg 24 hr 00:00: mouth [place] tablet 00 daily. [facility] isosorbide 2020-0 Yes [id number] 90mg Take 1.5 Univers mononitrate 5-08 tablets by it y of 60 mg 24 hr 00:00: mouth [place] tablet 00 daily. [facility] isosorbide 2020-0 Yes [id number] 90mg Take 1.5 Univers mononitrate 5-08 tablets by it y of 60 mg 24 hr 00:00: mouth [place] tablet 00 daily. [facility] isosorbide 2020-0 Yes [id number] 90mg Take 1.5 Univers mononitrate 5-08 tablets by it y of 60 mg 24 hr 00:00: mouth [place] tablet 00 daily. [facility] isosorbide 2020-0 Yes [id number] 90mg Take 1.5 Univers mononitrate 5-08 tablets by it y of 60 mg 24 hr 00:00: mouth [place] tablet 00 daily. [facility] isosorbide 2020-0 Yes [id number] 90mg Take 1.5 Univers mononitrate 5-08 tablets by it y of 60 mg 24 hr 00:00: mouth [place] tablet 00 daily. [facility] isosorbide 2020-0 Yes [id number] 90mg Take 1.5 Univers mononitrate 5-08 tablets by it y of 60 mg 24 hr 00:00: mouth [place] tablet 00 daily. Medical Branch isosorbide 2019-0 Yes [id number] 90mg Take 1.5 Univers mononitrate 5-08 tablets by it y of 60 mg 24 hr 00:00: mouth [place] tablet 00 daily. Medical Branch isosorbide 2019-0 2021- No [id number] 90mg Take 1.5 Univers mononitrate 5-08 12-18 tablets by i ty of 60 mg 24 hr 00:00: 00:00 mouth [place] tablet 00 :00 daily. Medical Branch acetaminoph 2020- No [id number] 975mg Take 3 Univers en 325 mg 5-08 05-19 tablets by ity of tablet 00:00: 04:59 mouth [place] 00 :00 every 8 Medical (eight) Branch hours for 10 days. acetaminoph 2020- No [id number] 975mg Take 3 Univers en 325 mg 5-08 05-19 tablets by ity of tablet 00:00: 04:59 mouth [place] 00 :00 every 8 Medical (eight) Branch hours for 10 days. acetaminoph 2020- No [id number] 975mg Take 3 Univers en 325 mg 5-08 05-19 tablets by ity of tablet 00:00: 04:59 mouth [place] 00 :00 every 8 Medical (eight) Branch hours for 10 days. acetaminoph 2020- No [id number] 975mg Take 3 Univers en 325 mg 5-08 05-19 tablets by ity of tablet 00:00: 04:59 mouth [place] 00 :00 every 8 Medical (eight) Branch hours for 10 days. acetaminoph 2020- No [id number] 975mg Take 3 Univers en 325 mg 5-08 05-19 tablets by ity of tablet 00:00: 04:59 mouth [place] 00 :00 every 8 Medical (eight) Branch hours for 10 days. lidocaine 5 2020- No [id number] 1{patch Apply 1 Univers % (700 5-08 05-09 } Patch to ity of mg/patch) 00:00: 04:59 area(s) [place] patch 00 :00 once now Medical for 1 Branch dose. lidocaine 5 2020- No [id number] 1{patch Apply 1 Univers % (700 5-08 05-09 } Patch to ity of mg/patch) 00:00: 04:59 area(s) [place] patch 00 :00 once now Medical for 1 Branch dose. lidocaine 5 2019-0 2020- No [id number] 1{patch Apply 1 Univers % (700 5-08 05-08 } Patch to ity of mg/patch) 00:00: 00:00 area(s) [place] patch 00 :00 once now Medical for 1 Branch dose. lidocaine 5 2019-0 2020- No [id number] 1{patch Apply 1 Univers % (700 03-23-08 } Patch to ity of mg/patch) 00:00: 00:00 area(s) [place] patch 00 :00 once now Medical for 1 Branch dose. glipiZIDE 2020-0 Yes 5mg 5 mg, Univers (GLUCOTROL) 4-23 Oral, ity of tablet 5 mg 14:00: DAILY, [place] 00 First dose Medical on [facility] 03[facility]08/20 at 0900[facility] sp[facility] 2020-0 2020- No [id number] 12.5mg Take 0.5 Univers one 25 mg 4-23 05-24 tablets by ity of tablet 00:00: 04:59 mouth [place] 00 :00 daily for Medical 30 days. [facility] spironolact 2020-0 2020- No [id number] 12.5mg Take 0.5 Univers one 25 mg 4-23 05-24 tablets by ity of tablet 00:00: 04:59 mouth [place] 00 :00 daily for Medical 30 days. [facility] spironolact 2020-0 2020- No [id number] 12.5mg Take 0.5 Univers one 25 mg 4-23 05-24 tablets by ity of tablet 00:00: 04:59 mouth [place] 00 :00 daily for Medical 30 days. [facility] spironolact 2020-0 2020- No [id number] 12.5mg Take 0.5 Univers one 25 mg 4-23 05-07 tablets by ity of tablet 00:00: 00:00 mouth [place] 00 :00 daily for Medical 30 days. [facility] spironolact 2020-0 2020- No [id number] 12.5mg Take 0.5 Univers one 25 mg [...] mouth ity of tablet 20:15: 00:00 daily. [place] 29 :00 Medical Branch atorvastati 2020-0 2020- [...] Discontinu ed, Routine, Insomnia Insulin 2020-0 Yes [id number] 10U inject 10 Univers Glargine 4-22 Units ity of 100 unit/mL 00:00: under the [place] (3 mL) 00 skin at Medical injection bedtime. Branch temazepam 2020-0 Yes [id number] 15mg Take 1 Un mel 15 mg 4-22 capsule by ity of capsule 00:00: mouth at [place] 00 bedtime as Medical needed for Branch Insomnia. furosemide 2020-0 Yes [id number] 40mg Take 1 Univers 40 mg 4-22 tablet by ity of tablet 00:00: mouth [place] 00 every Medical morning Branch and evening. Magnesium 2020-0 Yes [id number] 400mg Take 400 Univers Oxide 420 4-22 mg by ity of mg Tab 00:00: mouth [place] 00 daily. Medical Branch potassium 2020-0 Yes [id number] 20meq Take 20 Univers chloride 20 4-22 mEq by ity of mEq packet 00:00: mouth [place] 00 daily. Medical Take with Branch lasix in the morning isosorbide 2020-0 Yes [id number] 15mg Take 0.5 Univers mononitrate 4-22 tablets by it y of 30 mg 24 hr 00:00: mouth [place] tablet 00 daily. Medical Hold if Branch systolic blood pressure less than 120 Insulin 2020-0 Yes [id number] 10U inject 10 Univers Glargine 4-22 Units ity of 100 unit/mL 00:00: under the [place] (3 mL) 00 skin at Medical injection bedtime. Branch temazepam 2020-0 Yes [id number] 15mg Take 1 Un mel 15 mg 4-22 capsule by ity of capsule 00:00: mouth at [place] 00 bedtime as Medical needed for Branch Insomnia. furosemide 2020-0 Yes [id number] 40mg Take 1 Univers 40 mg 4-22 tablet by ity of tablet 00:00: mouth [place] 00 every Medical morning Branch and evening. Magnesium 2020-0 Yes [id number] 400mg Take 400 Univers Oxide 420 4-22 mg by ity of mg Tab 00:00: mouth [place] 00 daily. Medical Branch potassium 2020-0 Yes [id number] 20meq Take 20 Univers chloride 20 4-22 mEq by ity of mEq packet 00:00: mouth [place] 00 daily. Medical Take with Branch lasix in the morning isosorbide 2020-0 Yes [id number] 15mg Take 0.5 [facility] mononitrate 4-22 tablets by it y of 30 mg 24 hr 00:00: mouth [place] tablet 00 daily. Medical Hold if Branch systolic blood pressure less than 120 Insulin 2020-0 Yes [id number] 10U inject 10 [facility] Glargine 4-22 Units ity of 100 unit/mL 00:00: under the [place] (3 mL) 00 skin at Medical injection bedtime. Branch temazepam 2020-0 Yes [id number] 15mg Take 1 Un mel 15 mg 4-22 capsule by ity of capsule 00:00: mouth at [place] 00 bedtime as Medical needed for Branch Insomnia. furosemide 2020-0 Yes [id number] 40mg Take 1 [facility] 40 mg 4-22 tablet by ity of tablet 00:00: mouth [place] 00 every Medical morning Branch and evening. Magnesium 2020-0 Yes [id number] 400mg Take 400 [facility] Oxide 420 4-22 mg by ity of mg Tab 00:00: mouth [place] 00 daily. Medical Branch potassium 2020-0 Yes [id number] 20meq Take 20 [facility] chloride 20 4-22 mEq by ity of mEq packet 00:00: mouth [place] 00 daily. Medical Take with Branch lasix in the morning isosorbide 2020-0 Yes [id number] 15mg Take 0.5 [facility] mononitrate 4-22 tablets by it y of 30 mg 24 hr 00:00: mouth [place] tablet 00 daily. Medical Hold if Branch systolic blood pressure less than 120 Insulin 2020-0 Yes [id number] 10U inject 10 [facility] Glargine 4-22 Units ity of 100 unit/mL 00:00: under the [place] (3 mL) 00 skin at Medical injection bedtime. Branch Magnesium 2020-0 Yes [id number] 400mg Take 400 [facility] Oxide 420 4-22 mg by ity of mg Tab 00:00: mouth [place] 00 daily. Medical Branch vitamin 2020-0 2020- No [id number] 1000ug Take 1 [facility] B-12 1,000 4-22 07-22 tablet by ity of mcg tablet 00:00: 04:59 mouth [place] 00 :00 daily for Medical 90 days. Branch vitamin 2020-0 2020- No [id number] 1000ug Take 1 [facility] B-12 1,000 4-22 07-22 tablet by ity of mcg tablet 00:00: 04:59 mouth [place] 00 :00 daily for Medical 90 days. Branch vitamin 2019-0 2020- No [id number] 1000ug Take 1 [facility] B-12 1,000 4-06 06-22 tablet by ity of mcg tablet 00:00: 04:59 mouth [place] 00 :00 daily for Medical 90 days. Branch vitamin 2019-0 2020- No [id number] 1000ug Take 1 [facility] B-12 1,000 4-06 06-22 tablet by ity of mcg tablet 00:00: 04:59 mouth [place] 00 :00 daily for Medical 90 days. Branch glipiZIDE 5 2019- 2020- No [id number] 2.5mg Take 0.5 [facility] mg tablet 03-07 tablets by ity of 00:00: 04:59 mouth 2 [place] 00 :00 (two) Medical times Branch daily before breakfast and dinner for 30 days. metoprolol 2019- 2020- No [id number] 25mg Take 1 [facility] succinate 03-07 tablet by ity of XL 25 mg 24 00:00: 04:59 mouth 2 [place] hr tablet 00 :00 (two) Medical times Branch daily for 30 days. OLANZapine 2019- 2020- No [id number] 2.5mg Take 1 [facility] 2.5 mg 03-07 tablet by ity of tablet 00:00: 04:59 mouth at [place] 00 :00 bedtime Medical for 30 Branch days. ranolazine 2019-0 2020- No [id number] 1000mg Take 2 [facility] 500 mg 12 03-07 tablets by ity of hr tablet 00:00: 04:59 mouth [place] 00 :00 every 12 Medical (twelve) Branch hours for 30 days. aspirin 81 2019- 2020- No [id number] 81mg Take 1 [facility] mg chewable 03-07-23 tablet by it y of tablet 00:00: 04:59 mouth [place] 00 :00 daily with Medical breakfast Branch for 30 days. atorvastati 2019-0 2020- No [id number] 40mg Take 1 [facility] n 40 mg 03-07- tablet by ity of tablet 00:00: 04:59 mouth at [place] 00 :00 bedtime Medical for 30 Branch days. glipiZIDE 5 2019-0 2020- No [id number] 2.5mg Take 0.5 [facility] mg tablet 4-22 05-23 tablets by ity of 00:00: 04:59 mouth 2 [place] 00 :00 (two) Medical times Branch daily before breakfast and dinner for 30 days. metoprolol 2019- 2020- No [id number] 25mg Take 1 [facility] succinate 4-22 05-23 tablet by ity of XL 25 mg 24 00:00: 04:59 mouth 2 [place] hr tablet 00 :00 (two) Medical times Branch daily for 30 days. OLANZapine 2019- 2020- No [id number] 2.5mg Take 1 [facility] 2.5 mg 4-22 05-23 tablet by ity of tablet 00:00: 04:59 mouth at [place] 00 :00 bedtime Medical for 30 Branch days. ranolazine 2019- 2020- No [id number] 1000mg Take 2 [facility] 500 mg 12 4-22 05-23 tablets by ity of hr tablet 00:00: 04:59 mouth [place] 00 :00 every 12 Medical (twelve) Branch hours for 30 days. aspirin 81 2019- 2020- No [id number] 81mg Take 1 [facility] mg chewable 4-22 05-23 tablet by it y of tablet 00:00: 04:59 mouth [place] 00 :00 daily with Medical breakfast Branch for 30 days. atorvastati 2019-0 2020- No [id number] 40mg Take 1 [facility] n 40 mg 4-22 05-23 tablet by ity of tablet 00:00: 04:59 mouth at [place] 00 :00 bedtime Medical for 30 Branch days. glipiZIDE 5 2019- 2020- No [id number] 2.5mg Take 0.5 [facility] mg tablet - 05-23 tablets by ity of 00:00: 04:59 mouth 2 [place] 00 :00 (two) Medical times Branch daily before breakfast and dinner for 30 days. metoprolol 2019-0 2020- No [id number] 25mg Take 1 [facility] succinate 4-22 05-23 tablet by ity of XL 25 mg 24 00:00: 04:59 mouth 2 [place] hr tablet 00 :00 (two) Medical times Branch daily for 30 days. OLANZapine 2019-0 2020- No [id number] 2.5mg Take 1 [facility] 2.5 mg 4-22 05-23 tablet by ity of tablet 00:00: 04:59 mouth at [place] 00 :00 bedtime Medical for 30 Branch days. ranolazine 2020- 2020- No [id number] 1000mg Take 2 [facility] 500 mg 12 4-22 05-23 tablets by ity of hr tablet 00:00: 04:59 mouth [place] 00 :00 every 12 Medical (twelve) Branch hours for 30 days. aspirin 81 2020- No [id number] 81mg Take 1 [facility] mg chewable 4-22 05-23 tablet by it y of tablet 00:00: 04:59 mouth [place] 00 :00 daily with Medical breakfast Branch for 30 days. atorvastati 2019- 2020- No [id number] 40mg Take 1 [facility] n 40 mg 4-22 05-23 tablet by ity of tablet 00:00: 04:59 mouth at [place] 00 :00 bedtime Medical for 30 Branch days. glipiZIDE 5 2020- No [id number] 2.5mg Take 0.5 [facility] mg tablet 03-07 05-23 tablets by ity of 00:00: 04:59 mouth 2 [place] 00 :00 (two) Medical times Branch daily before breakfast and dinner for 30 days. metoprolol 2019-2019- No [id number] 25mg Take 1 [facility] succinate 4-22 05-23 tablet by ity of XL 25 mg 24 00:00: 04:59 mouth 2 [place] hr tablet 00 :00 (two) Medical times Branch daily for 30 days. ranolazine 2019- 2020- No [id number] 1000mg Take 2 [facility] 500 mg 12 4-22 05-23 tablets by ity of hr tablet 00:00: 04:59 mouth [place] 00 :00 every 12 Medical (twelve) Branch hours for 30 days. atorvastati 2019- 2020- No [id number] 40mg Take 1 [facility] n 40 mg 4-22 05-23 tablet by ity of tablet 00:00: 04:59 mouth at [place] 00 :00 bedtime Medical for 30 Branch days. furosemide 2019- 2020- No [id number] 40mg Take 1 [facility] 40 mg 4-22 05-08 tablet by ity of tablet 00:00: 00:00 mouth [place] 00 :00 every Medical morning Branch and evening. aspirin 81 2019- 2020- No [id number] 81mg Take 1 [facility] mg chewable 4-22 05-08 tablet by it y of tablet 00:00: 00:00 mouth [place] 00 :00 daily with Medical breakfast Branch for 30 days. isosorbide 2019- No [id number] 15mg Take 0.5 [facility] mononitrate 03-07-08 tablets by i ty of 30 mg 24 hr 00:00: 00:00 mouth [place] tablet 00 :00 daily. Medical Hold if Branch systolic blood pressure less than 120 Insulin 2019- No [id number] 10U inject 10 [facility] Glargine 03-07 05-08 Units ity of 100 unit/mL 00:00: 00:00 under the [place] (3 mL) 00 :00 skin at Medical injection bedtime. Branch glipiZIDE 5 2019- No [id number] 2.5mg Take 0.5 [facility] mg tablet 03-07-08 tablets by ity of 00:00: 00:00 mouth 2 [place] 00 :00 (two) Medical times Branch daily before breakfast and dinner for 30 days. metoprolol 2019- No [id number] 25mg Take 1 [facility] succinate 03-07-08 tablet by ity of XL 25 mg 24 00:00: 00:00 mouth 2 [place] hr tablet 00 :00 (two) Medical times Branch daily for 30 days. ranolazine 2019- No [id number] 1000mg Take 2 [facility] 500 mg 12 03-07-08 tablets by ity of hr tablet 00:00: 00:00 mouth [place] 00 :00 every 12 Medical (twelve) Branch hours for 30 days. furosemide 2019-2019- No [id number] 40mg Take 1 [facility] 40 mg 03-07 05-08 tablet by ity of tablet 00:00: 00:00 mouth [place] 00 :00 every Medical morning Branch and evening. aspirin 81 2019- 2020- No [id number] 81mg Take 1 [facility] mg chewable - 05-08 tablet by it y of tablet 00:00: 00:00 mouth [place] 00 :00 daily with Medical breakfast Branch for 30 days. atorvastati 2019- 2020- No [id number] 40mg Take 1 [facility] n 40 mg - 05-08 tablet by ity of tablet 00:00: 00:00 mouth at [place] 00 :00 bedtime Medical for 30 Branch days. Magnesium 2019-2019- No [id number] 400mg Take 400 [facility] Oxide 420 - 05-08 mg by ity of mg Tab 00:00: 00:00 mouth [place] 00 :00 daily. Medical Branch vitamin 2019-2019- No [id number] 1000ug Take 1 [facility] B-12 1,000 4-22 05-08 tablet by ity of mcg tablet 00:00: 00:00 mouth [place] 00 :00 daily for Medical 90 days. Branch isosorbide 2019- No [id number] 15mg Take 0.5 [facility] mononitrate 4-22 05-08 tablets by i ty of 30 mg 24 hr 00:00: 00:00 mouth [place] tablet 00 :00 daily. Medical Hold if Branch systolic blood pressure less than 120 OLANZapine 2019-2019- No [id number] 2.5mg Take 1 [facility] 2.5 mg 4-22 05-07 tablet by ity of tablet 00:00: 00:00 mouth at [place] 00 :00 bedtime Medical for 30 Branch days. temazepam 2019- No [id number] 15mg Take 1 U nivers 15 mg 4-22 05-07 capsule by ity of capsule 00:00: 00:00 mouth at [place] 00 :00 bedtime as Medical needed for Branch Insomnia. potassium 2019- No [id number] 20meq Take 20 [facility] chloride 20 4-22 05-07 mEq by ity o f mEq packet 00:00: 00:00 mouth [place] 00 :00 daily. Medical Take with Branch lasix in the morning OLANZapine 2019- No [id number] 2.5mg Take 1 [facility] 2.5 mg 4-22 05-07 tablet by ity of tablet 00:00: 00:00 mouth at [place] 00 :00 bedtime Medical for 30 Branch days. temazepam 2019- No [id number] 15mg Take 1 U nivers 15 mg 4-22 05-07 capsule by ity of capsule 00:00: 00:00 mouth at [place] 00 :00 bedtime as Medical needed for Branch Insomnia. potassium 2019- No [id number] 20meq Take 20 Univers chloride 20 4-22 05-07 mEq by ity o f mEq packet 00:00: 00:00 mouth [place] 00 :00 daily. Medical Take with Branch lasix in the morning isosorbide 2019- No 60mg 60 mg, Univ ers mononitrate 4-21 04-21 Oral, ity of (IMDUR) 24 14:00: 13:43 DAILY, [place] hr tablet 00 :56 First dose Medi birdie 60 mg on [facility] 03/06/20 at 0900, Until Discontinu ed, Routine OLANZapine 2020-0 Yes 2.5mg 2.5 mg, Uni vers (ZyPREXA) 4-21 Oral, QHS, ity of tablet 2.5 02:00: First dose [place] mg 00 on [facility] 03/05/20 at Branch 2100, Until Discontinu ed, Routine insulin 2020-0 Yes 10U 10 Units, Unive rs glargine 4-21 Subcutaneo ity o f (LANTUS 02:00: us, QHS, [place] U-100) 00 First dose Medical injection on [facility] 10 Units 03/05/20 at 2100, Until Discontinu ed, Routine donepezil 2020-0 Yes 5mg 5 mg, Univers (ARICEPT) 4-21 Oral, QHS, ity of tablet 5 mg 02:00: First dose [place] 00 on [facility] 03/05/20 at Branch 2100, Until Discontinu ed, Routine atorvastati 2020-0 Yes 40mg 40 mg, Univ ers n (LIPITOR) 4-21 Oral, QHS, it y of tablet 40 02:00: First dose [place] mg 00 on [facility] 03/05/20 at Branch 2100, Until Discontinu ed, Routine isosorbide 2020-0 2020- No 30mg 30 mg, Univ ers mononitrate 03-05 04-20 Oral, ity of (IMDUR) 24 15:30: 15:21 ONCE, 1 [place] hr tablet 00 :00 dose, [facility] Medic al 30 mg 03/05/20 at Branch 1030, Routine spironolact 2020-0 Yes 12.5mg 12.5 mg, Univers one 4-20 Oral, ity of (ALDACTONE) 14:00: DAILY, [place] tablet 12.5 00 First dose Me dical mg on [facility] 03/05/20 at 0900, Until Discontinu ed, Routine memantine 2020-0 Yes 10mg 10 mg, Univer s (NAMENDA) 4-20 Oral, ity of tablet 10 14:00: DAILY, [place] mg 00 First dose Medical on [facility] 03/05/20 at 0900, Until Discontinu ed, Routine
membership manager approving Restricted medication : [facility] lisinopril 2020-0 2020- No 5mg 5 mg, Unive rs (PRINIVIL,Z 03-05- Oral, ity of ESTRIL) 14:00: 13:44 DAILY, [place] tablet 5 mg 00 :01 First dose Me dical on Mon Branch 03/05/20 at 0900, Until Discontinu ed, Routine isosorbide 2020-0 2020- No 30mg 30 mg, Univ ers mononitrate 03-05- Oral, ity of (IMDUR) 24 14:00: 14:20 DAILY, [place] hr tablet 00 :04 First dose Medi birdie 30 mg on Thu Branch 03/05/20 at 0900, Until Discontinu ed, Routine ranolazine 2020-0 Yes 500mg 500 mg, Uni vers (RANEXA) 12 03-05 Oral, ity of hr tablet 13:00: Q12H, [place] 500 mg 00 First dose Medical on [facility] Branch 03/05/20 at 0800, Until Discontinu ed, Routine metoprolol 2020-0 Yes 25mg 25 mg, Unive rs succinate -20 Oral, BID, ity of XL (TOPROL 13:00: First dose [place] XL) tablet [address] [facility] Medical 25 mg 03/05/20 at Branch 0800, Until Discontinu ed, Routine magnesium 2020-0 Yes 400mg 400 mg, Univ ers oxide -20 Oral, BID, ity of (MAG-OX 13:00: First dose [place] 400) tablet [address] [facility] Medica l 400 mg 03/05/20 at Branch [...] dose [place] ular + Fsbg [address] [facility] Medica l Testing 03/05/20 at Branch [...] injection 42 Starting Medica l 25 mL [facility] 03/04/20 at 2202, Until Discontinu ed, ADAMA, Blood Glucose < or = 70 mg/dL and patient is unable to swallow or has mental status changes. furosemide 2020-0 Yes 40mg 40 mg, Unive rs (LASIX) 4-20 Oral, ity of tablet 40 03:00: QAM+PM, [place] mg 00 First dose Medical on [facility] 03/04/20 at 2200, Until Discontinu ed, Routine cyanocobala 2020-0 Yes 1000ug 1,000 mcg, Univers min -20 Subcutaneo ity of (VITAMIN 03:00: us, Q24H, [place] B12) 00 First dose Medical injection on [facility] 1,000 mcg 03/04/20 at 2200, Until Discontinu ed, Routine heparin 2020-0 Yes 5000U 5,000 Univers (porcine) 4-20 Units, ity of injection 03:00: Subcutaneo [place] 5,000 Units 00 us, Q8H, Medi birdie First dose Branch on [place] 03/04/20 at 2200, Until Discontinu ed, Routine ondansetron 2020-0 Yes 4mg 4 mg, Slow Univers (ZOFRAN 4-20 IV Push, ity of (PF)) 02:34: Q6HPRN, [place] injection 4 40 Starting Medi birdie mg [facility] 03/04/20 at 2134, Until Discontinu ed, Routine, Nausea and Vomiting (N/V) traMADol 2020-0 2020- No 50mg 50 mg, Univer s (ULTRAM) 4-20 04-22 Oral, ity of tablet 50 02:34: 02:33 Q8HPRN, [place] mg 23 :23 Starting Medical [facility] 03/04/20 at 2134, Until 03/06/20 at 2133, Routine, Pain (scale 4-6) acetaminoph 2019-0 Yes 650mg 650 mg, Un mel en 4-20 Oral, ity of (TYLENOL) 02:34: Q6HPRN, [place] tablet 650 20 Starting Medic al mg [facility] 03/04/20 at 2134, Until Discontinu ed, Routine, Pain (scale 1-3) lisinopril 2019-0 Yes [id number] 5mg Take 1 Univers 5 mg tablet 4-18 tablet by ity of 00:00: mouth [place] 00 daily. Medical Branch isosorbide 2019-0 Yes [id number] 30mg Take 1 [facility] mononitrate 4-18 tablet by ity of 30 mg 24 hr 00:00: mouth [place] tablet 00 daily. Medical Branch lisinopril 2019-0 Yes [id number] 5mg Take 1 [facility] 5 mg tablet 4-18 tablet by ity of 00:00: mouth [place] 00 daily. Medical Branch isosorbide 2019-0 Yes [id number] 30mg Take 1 [facility] mononitrate 4-18 tablet by ity of 30 mg 24 hr 00:00: mouth [place] tablet 00 daily. Medical Branch lisinopril 2019-0 2020- No [id number] 5mg Take 1 [facility] 5 mg tablet 4-18 04-22 tablet by it y of 00:00: 00:00 mouth [place] 00 :00 daily. Medical Branch isosorbide 2019-0 2020- No [id number] 30mg Take 1 [facility] mononitrate 4-18 04-22 [...] ity of 12.5 mg 17:34: mouth 2 [place] 27 (two) Medical times Branch daily. MULTIVITAMI 2020-0 Yes Take by Un mel N ORAL 4-17 mouth. ity of 17:34: [place] [address] Medical Branch thiamine 2020-0 Yes 100mg Take 100 Univ ers (VITAMIN 4-17 mg by ity of B-1) 100 mg 17:34: mouth [place] tablet 27 daily. Medical Branch aspirin 81 2020-0 Yes 81mg Take 81 mg U nivers mg chewable 4-17 by mouth ity of tablet 17:34: daily. [place] [address] Medical Branch atorvastati 2020-0 Yes 40mg Take 40 mg Univers n 40 mg 4-17 by mouth ity of tablet 17:34: at [place] 27 bedtime. Medical Branch NaCl 0.9% 2020-0 [...] 4-17 mouth. ity of complex and 17:34: [place] C (B 27 Medical COMPLEX-VIT Branch RAZA C-FOLIC ACID ORAL) Cholecalcif 2020-0 Yes Take by Un mel ann, 4-17 mouth. ity of Vitamin D3, 17:34: [place] 2,000 unit 27 Medical capsule Branch metoprolol 2020-0 Yes 12.5mg Take 12.5 Univers tartrate 4-17 mg by ity of 12.5 mg 17:34: mouth 2 [place] 27 (two) Medical times Branch daily. MULTIVITAMI [...] 5 mg 02:00: First dose 00 on [facility] Medical 03/01/20 at Branch 2100, [facility] 2020-0 Yes [id number] 40mg Take 1 [facility] 40 mg 4-17 tablet by ity of tablet 00:00: mouth [place] 00 every Medical morning Branch and evening. potassium 2020-0 Yes [id number] 20meq Take 20 Univers chloride 20 4-17 mEq by ity of mEq packet 00:00: mouth [place] 00 daily. Medical Branch vitamin 2020-0 Yes [id number] 1000ug Take 1 U nivers B-12 1,000 4-17 tablet by ity of mcg tablet 00:00: mouth [place] 00 daily. Medical Branch furosemide 2020-0 Yes [id number] 40mg Take 1 [facility] 40 mg 4-17 tablet by ity of tablet 00:00: mouth [place] 00 every Medical morning Branch and evening. potassium 2020-0 Yes [id number] 20meq Take 20 [facility] chloride 20 4-17 mEq by ity of mEq packet 00:00: mouth [place] 00 daily. Medical Branch vitamin 2020-0 Yes [id number] 1000ug Take 1 U nivers B-12 1,000 4-17 tablet by ity of mcg tablet 00:00: mouth [place] 00 daily. Medical Branch furosemide 2020-0 2020- No [id number] 40mg Take 1 [facility] 40 mg 03-02-22 tablet by ity of tablet 00:00: 00:00 mouth [place] 00 :00 every Medical morning Branch and evening. potassium 2020-0 2020- No [id number] 20meq Take 20 Univers chloride 20 -02 03-22 mEq by ity o f mEq packet 00:00: 00:00 mouth [place] 00 :00 daily. Medical Branch vitamin 2020-0 2020- No [id number] 1000ug Take 1 Univers B-12 1,000 -02 03-22 tablet by ity of mcg tablet 00:00: 00:00 mouth [place] 00 :00 daily. Medical Branch cyanocobala 2020-0 Yes 1000ug 1,000 mcg, Univers min 4-16 Subcutaneo ity of (VITAMIN 20:45: us, Q24H, [place] B12) 00 First dose Medical injection on [facility] Branch 1,000 mcg 03/01/20 at 1545, Until Discontinu ed, Routine isosorbide 2020-0 Yes 30mg 30 mg, Unive rs mononitrate 4-16 Oral, ity of (IMDUR) 24 14:00: DAILY, [place] hr tablet 00 First dose Medi birdie 30 mg on [facility] Branch 03/01/20 at 0900, Until Discontinu ed, Routine memantine 2019-0 Yes 10mg 10 mg, Univer s (NAMENDA) 4-16 Oral, ity of tablet 10 14:00: DAILY, [place] mg 00 First dose Medical on [facility] Branch 03/01/20 at 0900, Until Discontinu ed, Routine
membership manager approving Restricted medication : [facility] lisinopril 2020-0 Yes 5mg 5 mg, Univer s (PRINIVIL,Z 4-16 Oral, ity of ESTRIL) 14:00: DAILY, [place] tablet 5 mg 00 First dose Me dical on [facility] 03/01/20 at 0900, Until Discontinu ed, Routine enoxaparin 2020-0 Yes 30mg 30 mg, Unive rs (LOVENOX) 4-16 Subcutaneo ity of injection 14:00: [place], DAILY, [place] 30 mg 00 First dose Medical on [facility] 03/01/20 at 0900, Until Discontinu ed, Routine KCL 2020-0 2020- No 20meq 20 mEq, Univers (KLOR-CON 03-01 Oral, ity of M20) tablet 14:00: 13:26 DAILY, [place] 20 mEq 00 :35 First dose Medical on [facility] 03/01/20 at 0900, Until Discontinu ed, Routine KCL 2020-0 Yes 40meq 40 mEq, Univers (KLOR-CON 16 Oral, BID, ity of M20) tablet 13:30: First dose [place] 40 mEq 00 on [facility] 03/01/20 at Branch 0830, Until Discontinu ed, Routine magnesium 2020-0 2020- No 2g 2 g, IV Univ ers sulfate in 03-01 Infusion, ity of water 2 03:30: 03:30 ONCE, 1 [place] gram/50 mL 00 :00 dose, [facility] birdie (4 %) 2 g 02/29/20 at [facility] piggyback 2230 metoprolol 2020-0 2020- No 5mg 5 mg, Slow Univers (LOPRESSOR) 03-01 IV Push, ity of injection 5 03:30: 03:37 ONCE, 1 [place] mg 00 :00 dose, [facility] 02/29/20 at Branch 2230, ADAMA glipiZIDE 2020-0 Yes 5mg 5 mg, Univers (GLUCOTROL) 03-01 Oral, ity of tablet 5 mg 02:45: BIDAC, [place] 00 First dose Medical on [facility] 02/29/20 at 2145, Until Discontinu ed, Routine insulin 2020-0 Yes 10U 10 Units, Unive rs glargine 16 Subcutaneo ity o f (LANTUS 02:45: us, QHS, [place] U-100) 00 First dose Medical injection on [facility] Branch 10 Units 02/29/20 at 2145, Until Discontinu ed, Routine OLANZapine 2020-0 Yes 2.5mg 2.5 mg, Uni vers (ZyPREXA) 16 Oral, QHS, ity of tablet 2.5 02:45: First dose [place] mg 00 on [facility] 02/29/20 at Branch 2145, Until Discontinu [...] 650 25 Starting Medic al mg Wed [facility] 02/29/20 at 1857, Until Discontinu ed, Routine, Pain (scale 1-3) NaCl 0.9% 2019-2019- No 500mL at 999 Univ ers (NS) bolus 02-28- mL/hr, 500 it y of infusion 23:30: 23:37 mL, IV [place] 500 mL 00 :00 Infusion, Medical ONCE, 1 Branch dose, [facility] 02/29/20 at 1830, ADAMA acetaminoph 2019-2019- No 650mg 650 mg, U nivers en 02-2815 Oral, ity of (TYLENOL) 23:00: 22:36 ONCE, 1 [place] tablet 650 00 :00 dose, Thu Medi birdie mg 02/29/20 at Branch 1800, [facility] donepezil 5 2019-0 Yes 5mg Take 5 mg U nivers mg tablet 02-14 by mouth ity of 00:00: daily. [place] 00 [facility] Branch donepezil 5 2019-0 2020- No 5mg Take 5 mg Univers mg tablet 02-14 by mouth ity o f 00:00: 00:00 daily. [place] 00 :00 Medical Branch nitroglycer 2019- 2020- [...] N ORAL 3-03 mouth. ity of 23:00: [place] [address] Medical Branch thiamine 2020-0 Yes 100mg Take 100 Univ ers (VITAMIN 3-03 mg by ity of B-1) 100 mg 23:00: mouth [place] tablet 52 daily. Medical Branch aspirin 81 2020-0 Yes 81mg Take 81 mg U nivers mg chewable 3-03 by mouth ity of tablet 23:00: daily. [place] [address] Medical Branch atorvastati 2020-0 Yes 40mg Take [...] N ORAL 3-03 mouth. ity of 23:00: [place] [address] Medical Branch thiamine 2020-0 Yes 100mg Take 100 Univ ers (VITAMIN 3-03 mg by ity of B-1) 100 mg 23:00: mouth [place] tablet 52 daily. Medical Branch aspirin 81 2020-0 Yes 81mg Take 81 mg U nivers mg chewable 3-03 by mouth ity of tablet 23:00: daily. [place] [address] Medical Branch atorvastati 2020-0 Yes 40mg Take 40 mg Univers n 40 mg 3-03 by mouth ity of tablet 23:00: at [place] [address] bedtime. Medical Branch NaCl 0.9% 2020-0 Yes 10mL Inject 10 Uni vers (NS) Soln 3-03 mL ity of 10 mL with 23:00: intravenou [place] sodium 52 sly once Medical chloride now. Branch 2.5 mEq/mL SolP 17.125 mEq memantine-d 2020-0 Yes 1{capsu Take 1 U nivers onepezil 3-03 le} capsule by ity o f (NAMZARIC) 23:00: mouth [place] 28-10 mg 52 daily. Medical CSpX Branch [...] by mouth ity of tablet 23:00: daily. [place] [address] Medical Branch atorvastati 2020-0 Yes 40mg Take 40 mg Univers n 40 mg 3-03 by mouth ity of tablet 23:00: at [place] [address] bedtime. Medical Branch NaCl 0.9% 2020-0 Yes [...] ity of 12.5 mg 23:00: mouth 2 [place] 52 (two) Medical times Branch daily. MULTIVITAMI 2020-0 Yes Take by Un mel N ORAL 3-03 mouth. ity of 23:00: [place] [address] Medical Branch thiamine 2020-0 Yes 100mg Take 100 Univ ers (VITAMIN 3-03 mg by ity of B-1) 100 mg 23:00: mouth [place] tablet 52 daily. Medical Branch aspirin 81 2020-0 Yes 81mg Take 81 mg U nivers mg chewable 3-03 by mouth ity of tablet 23:00: daily. [address] Branch atorvastati 2020-0 Yes 40mg Take 40 mg Univers n 40 mg 3-03 by mouth ity of tablet 23:00: at [place] [address] bedtime. Medical Branch NaCl 0.9% 2019-0 Yes 10mL Inject 10 Uni vers (NS) Soln 3-03 mL ity of 10 mL with 23:00: intravenou [place] sodium 52 sly once Medical chloride now. [facility] [place] 2.5 mEq/mL SolP 17.125 mEq atorvastati 2019-0 Yes 40mg 40 mg, Univ ers n (LIPITOR) 3-03 Oral, QHS, it y of tablet 40 03:00: First dose [place] mg 00 on [facility] 01/16/20 at Branch 2100, Until Discontinu ed, Routine ranolazine 2019-0 2020- No [id number] 500mg Take 1 [facility] 500 mg 12 -01 17-03 tablet by ity of hr tablet 00:00: 04:59 mouth [place] 00 :00 every 12 Medical (twelve) Branch hours for 30 days. ranolazine 2020-0 2020- No [id number] 500mg Take 1 [facility] 500 mg 12 - 04-03 tablet by ity of hr tablet 00:00: 04:59 mouth [place] 00 :00 every 12 Medical (twelve) Branch hours for 30 days. ranolazine 2020-0 2020- No [id number] 500mg Take 1 Univers 500 mg 12 3- 04-03 tablet by ity of hr tablet 00:00: 04:59 mouth [place] 00 :00 every 12 Medical (twelve) Branch hours for 30 days. ranolazine 2020-0 2020- No [id number] 500mg Take 1 Univers 500 mg 12 -01 17-03 tablet by ity of hr tablet 00:00: 04:59 mouth [place] 00 :00 every 12 Medical (twelve) Branch hours for 30 days. ranolazine 2020-0 Yes 500mg 500 mg, Uni vers (RANEXA) 12 02 Oral, ity of hr tablet 22:30: Q12H, [...] First dose [place] tablet 12.[address] [facility] Medica l mg 01/16/20 at Branch 0800, Until Discontinu ed, Routine Sliding 2020-0 Yes Subcutaneo Univ ers Scale 302 us, Q6H, ity of Insulin-Reg 12:00: First dose [place] ular + Fsbg [address] [facility] Medica l Testing 01/16/20 at Branch 0600, [...] IV ity of (D50W) 10:52: Push, PRN, [place] injection 33 Starting Medica l 25 mL [...] injection 4 01 Starting [address] mg [facility] 01/16/20 Branch at 0155, Until Discontinu ed, Routine, Nausea and Vomiting (N/V) morpHINE 2019- No 2mg 2 mg, Slow Un mel injection 2 01-1503 IV Push, ity of mg 07:54: 07:53 Q6HPRN, [place] 55 :55 Starting Medical 01/16/20 Branch at 0154, Until Thu01/17/20 at 0153, Routine, Pain (scale 7-10) traMADol 2019-0 2020- No 50mg 50 mg, Univer s (ULTRAM) 01-15 03-04 Oral, ity of tablet 50 07:54: 07:53 [facility] Starting Medical 01/16/20 Branch at 0154, Until Thu01/18/20 at 0153, Routine, Pain (scale 4-6) acetaminoph 2019-0 Yes 650mg 650 mg, Un mel en 01-15 Oral, ity of (TYLENOL) 07:54: Q6HPMifflin, [place] tablet 650 [address] Starting [address] [facility] 01/16/20 Branch at 0154, Until Discontinu [...] 01/15/20 at 2345, ADAMA furosemide 2018-11 Yes [id number] 40mg Take 1 Univers 40 mg 0-26 tablet by ity of tablet 00:00: mouth [place] 00 daily. Medical Branch furosemide 2018-11 Yes [id number] 40mg Take 1 Univers 40 mg 0-26 tablet by ity of tablet 00:00: mouth [place] 00 daily. Medical Branch furosemide 2018-11 Yes [id number] 40mg Take 1 Univers 40 mg 0-26 tablet by ity of tablet 00:00: mouth [place] 00 daily. Medical Branch furosemide 2018-11 Yes [id number] 40mg Take 1 Univers 40 mg 0-26 tablet by ity of tablet 00:00: mouth [place] 00 daily. Medical Branch furosemide 2018-11 2020- No [id number] 40mg Take 1 Univers 40 mg 0-26 04-17 tablet by ity of tablet 00:00: 00:00 mouth [place] 00 :00 daily. Medical Branch magnesium 2018-11 Yes [id number] 400mg Take 400 Univers oxide 420 0-23 mg by ity of mg Tab 00:00: mouth [place] 00 daily. Medical Branch magnesium 2018-11 Yes [id number] 400mg Take 400 Univers oxide 420 0-23 mg by ity of mg Tab 00:00: mouth [place] 00 daily. Medical Branch magnesium 2018-11 Yes [id number] 400mg Take 400 Univers oxide 420 0-23 mg by ity of mg Tab 00:00: mouth [place] 00 daily. Medical Branch magnesium 2018-11 Yes [id number] 400mg Take 400 Univers oxide 420 0-23 mg by ity of mg Tab 00:00: mouth [place] 00 daily. Medical Branch magnesium 2019- Yes [id number] 400mg Take 400 Univers oxide 420 0-23 mg by ity of mg Tab 00:00: mouth [place] 00 daily. [facility] Branch magnesium 2019- Yes [id number] 400mg Take 400 Univers oxide 420 0-23 mg by ity of mg Tab 00:00: mouth [place] 00 daily. [facility] Branch magnesium 2018- 2020- No [id number] 400mg Take 400 Univers oxide 420 0-23 04-22 mg by ity of mg Tab 00:00: 00:00 mouth [place] 00 :00 daily. [facility] Branch Insulin 2019-0 Yes [id number] 30U inject 30 Univers Glargine 9-11 Units ity of 100 unit/mL 00:00: under the [place] (3 mL) 00 skin every Medical injection morning. Branch Insulin 2018-0 Yes [id number] 30U inject 30 Univers Glargine 9-11 Units ity of 100 unit/mL 00:00: under the [place] (3 mL) 00 skin every Medical injection morning. Branch Insulin 2018-0 Yes [id number] 30U inject 30 Univers Glargine 9-11 Units ity of 100 unit/mL 00:00: under the [place] (3 mL) 00 skin every Medical injection morning. Branch Insulin 2018-0 Yes [id number] 30U inject 30 Univers Glargine 9-11 Units ity of 100 unit/mL 00:00: under the [place] (3 mL) 00 skin every Medical injection morning. Branch Insulin 2019-0 Yes [id number] 30U inject 30 Univers Glargine 9-11 Units ity of 100 unit/mL 00:00: under the [place] (3 mL) 00 skin every Medical injection morning. Branch Insulin 2018-0 Yes [id number] 30U inject 30 Univers Glargine 9-11 Units ity of 100 unit/mL 00:00: under the [place] (3 mL) 00 skin every Medical injection morning. Branch Insulin 2018-0 Yes [id number] 30U inject 30 Univers Glargine 9-11 Units ity of 100 unit/mL 00:00: under the [place] (3 mL) 00 skin every Medical injection morning. Branch Insulin 2019-0 2020- No [id number] 30U inject 30 Univers Glargine 9-11 04-22 [...] mg under ity of 15:26: the skin. [place] [address] Medical Branch Cholecalcif 2018-0 Yes Take by Un mel ann, 5-10 mouth. ity of Vitamin D3, 15:26: [place] 2,000 unit 43 Medical capsule Branch metoprolol 0 Yes 12.5mg Take 12.5 Univers tartrate 5-10 mg by ity of 12.5 mg 15:26: mouth 2 [place] 43 (two) Medical times Branch daily. MULTIVITAMI Yes Take by Un mel N ORAL 5-10 mouth. ity of 15:26: [place] [address] Medical Branch thiamine 0 Yes 100mg Take 100 Univ ers (VITAMIN 5-10 mg by ity of B-1) 100 mg 15:26: mouth [place] tablet 43 daily. Medical Branch aspirin 81 0 Yes 81mg Take 81 mg U nivers mg chewable 5-10 by mouth ity of tablet 15:26: daily. [place] [address] Medical Branch atorvastati 0 Yes 40mg Take 40 mg Univers n 40 mg 5-10 by mouth ity of tablet 15:26: at [place] 43 bedtime. Medical Branch furosemide 0 Yes 40mg Take 40 mg U nivers 40 mg 5-10 by mouth ity of tablet 15:26: daily. [place] [address] Medical Branch NaCl 0.9% 2019-0 Yes 10mL [...] mg under ity of 15:26: the skin. [place] [address] Medical Branch Cholecalcif 2018-0 Yes Take by Un mel ann, 5-10 mouth. ity of Vitamin D3, 15:26: [place] 2,000 unit 43 Medical capsule Branch metoprolol 2018-0 Yes 12.5mg Take 12.5 Univers tartrate 5-10 mg by ity of 12.5 mg 15:26: mouth 2 [place] 43 (two) Medical times Branch daily. MULTIVITAMI 0 Yes Take by Un mel N ORAL 5-10 mouth. ity of 15:26: [place] [address] Medical Branch thiamine 0 Yes 100mg Take 100 Univ ers (VITAMIN 5-10 mg by ity of B-1) 100 mg 15:26: mouth [place] tablet 43 daily. Medical Branch aspirin 81 0 Yes 81mg Take 81 mg U nivers mg chewable 5-10 by mouth ity of tablet 15:26: daily. [place] [address] Medical Branch atorvastati 0 Yes 40mg Take 40 mg Univers n 40 mg 5-10 by mouth ity of tablet 15:26: at [place] 43 bedtime. Medical Branch furosemide 0 Yes 40mg Take 40 mg U nivers 40 mg 5-10 by mouth ity of tablet 15:26: daily. [place] [address] Medical Branch NaCl 0.9% 0 Yes 10mL Inject 10 Uni vers (NS) Soln 5-10 mL ity of 10 mL with 15:26: intravenou [place] sodium 43 sly once Medical chloride now. Branch 2.5 mEq/mL SolP 17.125 mEq insulin 2018-0 Yes [id number] 4U inject 4 U nivers lispro, 5-10 Units ity of human, 100 00:00: under the [place] unit/mL 00 skin 3 Medical injection (three) Branch times daily before meals. insulin 2018-0 Yes [id number] 4U inject 4 U nivers lispro, 5-10 Units ity of human, 100 00:00: under the [place] unit/mL 00 skin 3 Medical injection (three) Branch times daily before meals. insulin 2018-0 Yes [id number] 4U inject 4 U nivers lispro, 5-10 Units ity of human, 100 00:00: under the [place] unit/mL 00 skin 3 Medical injection (three) Branch times daily before meals. insulin 2019-0 Yes [id number] 4U inject 4 U nivers lispro, 5-10 Units ity of human, 100 00:00: under the [place] unit/mL 00 skin 3 Medical injection (three) Branch times daily before meals. insulin 2019-0 Yes [id number] 4U inject 4 U nivers lispro, 5-10 Units ity of human, 100 00:00: under the [place] unit/mL 00 skin 3 Medical injection (three) Branch times daily before meals. insulin 2018-0 Yes [id number] 4U inject 4 U nivers lispro, 5-10 Units ity of human, 100 00:00: under the [place] unit/mL 00 skin 3 Medical injection (three) Branch times daily before meals. Insulin 2018-0 Yes [id number] 18U inject Uni vers Glargine 5-10 18-24 ity of 100 unit/mL 00:00: Units [place] (3 mL) 00 under the Medical injection skin every Bran ch morning. insulin 2018-0 Yes [id number] 4U inject 4 U nivers lispro, 5-10 Units ity of human, 100 00:00: under the [place] unit/mL 00 skin 3 Medical injection (three) Branch times daily before meals. insulin 2018-0 Yes [id number] 4U inject 4 U nivers lispro, 5-10 Units ity of human, 100 00:00: under the [place] unit/mL 00 skin 3 Medical injection (three) Branch times daily before meals. insulin 2018-0 Yes [id number] 4U inject 4 U nivers lispro, 5-10 Units ity of human, 100 00:00: under the [place] unit/mL 00 skin 3 Medical injection (three) Branch times daily before meals. insulin 2019-0 Yes [id number] 4U inject 4 U nivers lispro, 5-10 Units ity of human, 100 00:00: under the [place] unit/mL 00 skin 3 Medical injection (three) Branch times daily before meals. insulin 2018-0 Yes [id number] 4U inject 4 U nivers lispro, 5-10 Units ity of human, 100 00:00: under the [place] unit/mL 00 skin 3 Medical injection (three) Branch times daily before meals. insulin 2019- No [id number] 4U inject 4 Univers lispro, 5-10 05-07 Units ity of human, 100 00:00: 00:00 under the [place] unit/mL 00 :00 skin 3 Medical injection (three) Branch times daily before meals. insulin 2019- No [id number] 4U inject 4 Univers lispro, 5-10 05-07 Units ity of human, 100 00:00: 00:00 under the [place] unit/mL 00 :00 skin 3 Medical injection (three) Branch times daily before meals. Insulin 2018- No [id number] 18U inject Un mel Glargine 03-25 18-24 ity of 100 unit/mL 00:00: 00:00 [place] (3 mL) 00 :00 under the Medical injection skin every Bran ch morning. folic Yes Take by Univers acid/vit B 3-08 mouth. ity of complex and 16:39: [facility] ( 29 Medical COMPLEX-VIT Branch RAZA C-FOLIC ACID ORAL) potassium 2018- Yes 20meq Take 20 Univ ers chloride 20 3-08 mEq by ity of mEq packet 16:39: mouth [place] 29 daily. Medical Branch folic Yes Take by Univers acid/vit B 3-08 mouth. ity of complex and 16:39: [facility] ( 29 [facility] COMPLEX-VIT Branch RAZA C-FOLIC ACID ORAL) potassium 2018- Yes 20meq Take 20 Univ ers chloride 20 3-08 mEq by ity of mEq packet 16:39: mouth [place] 29 daily. Medical Branch Lantus Lantus Yes Anneliese as Common [place] directed [facility] Lasix Lasix Yes Annelies[place] 1 tablet Common Millender [facility] Isosorbide Isosorbide Yes Anneliese 1 tablet Common Mononitrate Mononitrate Millender in the [facility] Lyrica Lyrica Yes Anneliese 1 capsule Commo n Millender [facility] Potassium Potassium Yes Anneliese 1 capsule Common Chloride Chloride Millender with food [facility] Tylenol # 3 Tylenol # 3 Yes Anneliese one tab Common [facility] Vitamin D-3 Vitamin D-3 Yes Anneliese 2 capsule Common [facility] Humalog Humalog Yes Anneliese as Common [facility] directed [facility] Aspir-Low Aspir-Low Yes Anneliese 1 tablet Common [facility] Namzaric Namzaric Yes Anneliese 1 Common [facility] Zyprexa Zyprexa Yes Anneliese 1 tablet Comm on [facility] Vitamin B-1 Vitamin B-1 Yes Anneliese 1 tablet Common [facility] Multivitami Multivitami Yes [place] as [facility] Immunizations Ordered Filled Immunization Date Status Comments [facility] e Immunization Name Name SARS-COV-2 COVID-19 2021-09-16 Completed Unive rsity of MODERNA VACCINE 00:00:00 [facility] SARS-COV-2 COVID-19 2021-09-16 Completed Unive rsity of MODERNA VACCINE 00:00:00 [facility] SARS-COV-2 COVID-19 2021-09-16 Completed Unive rsity of MODERNA VACCINE 00:00:00 [facility] SARS-COV-2 COVID-19 2021-09-16 Completed Unive rsity of MODERNA VACCINE 00:00:00 [facility] SARS-COV-2 COVID-19 2021-09-16 Completed Unive rsity of MODERNA VACCINE 00:00:00 [facility] SARS-COV-2 COVID-19 2021-08-17 Completed Unive rsity of MODERNA VACCINE 00:00:00 [facility] Influenza High Dose 2021-08-17 Completed Unive rsity of 00:00:00 [facility] SARS-COV-2 COVID-19 2021-08-17 Completed Unive rsity of MODERNA VACCINE 00:00:00 [facility] Influenza High Dose 2021-08-17 Completed Unive rsity of 00:00:00 [facility] SARS-COV-2 COVID-19 2021-08-17 Completed Unive rsity of MODERNA VACCINE 00:00:00 [facility] Influenza High Dose 2021-08-17 Completed Unive rsity of 00:00:00 [facility] SARS-COV-2 COVID-19 2021-08-17 Completed Unive rsity of MODERNA VACCINE 00:00:00 [facility] Influenza High Dose 2021-08-17 Completed Unive rsity of 00:00:00 [facility] SARS-COV-2 COVID-19 2021-08-17 Completed Unive rsity of MODERNA VACCINE 00:00:00 [facility] Influenza High Dose 2021-08-17 Completed Unive rsity of 00:00:00 [facility] Zoster(Zostavax)( 2020-09-14 Completed Unive rsity of ingles) 00:00:00 [facility] Zoster(Zostavax)( 2020-09-14 Completed Unive rsity of ingles) 00:00:00 [facility] Zoster(Zostavax)( 2020-09-14 Completed Unive rsity of ingles) 00:00:00 [facility] Zoster(Zostavax)( 2020-09-14 Completed Unive rsity of ingles) 00:00:00 [facility] Zoster(Zostavax)( 2020-09-14 Completed Unive rsity of ingles) 00:00:00 [facility] Influenza High Dose 2020-07-13 Completed Unive rsity of 00:00:00 [facility] Influenza High Dose 2020-07-13 Completed Unive rsity of 00:00:00 [facility] Influenza High Dose 2020-07-13 Completed Unive rsity of 00:00:00 [facility] Influenza High Dose 2020-07-13 Completed Unive rsity of 00:00:00 [facility] Influenza High Dose 2020-07-13 Completed Unive rsity of 00:00:00 [facility] Influenza High Dose 2019-09-15 Completed Unive rsity of 00:00:00 [facility] Influenza High Dose 2019-09-15 Completed Unive rsity of 00:00:00 [facility] Influenza High Dose 2019-09-15 Completed Unive rsity of 00:00:00 [facility] Influenza High Dose 2019-09-15 Completed Unive rsity of 00:00:00 [facility] Influenza High Dose 2019-09-15 Completed Unive rsity of 00:00:00 [facility] Influenza Virus 2018-09-09 Completed Universit y of Vaccine 00:00:00 [facility] Influenza Virus 2018-09-09 Completed Universit y of Vaccine 00:00:00 [facility] Influenza Virus 2018-09-09 Completed Universit y of Vaccine 00:00:00 [facility] Influenza Virus 2018-09-09 Completed Universit y of Vaccine 00:00:00 [facility] Influenza Virus 2018-09-09 Completed Universit y of Vaccine 00:00:00 [facility] Influenza Virus 2018-09-09 Completed Universit y of Vaccine 00:00:00 [facility] Influenza Virus 2018-09-09 Completed Universit y of Vaccine 00:00:00 [facility] Influenza Virus 2018-09-09 Completed Universit y of Vaccine 00:00:00 [facility] Influenza Virus 2018-09-09 Completed Universit y of Vaccine 00:00:00 [facility] Influenza Virus 2018-09-09 Completed Universit y of Vaccine 00:00:00 [facility] Influenza Virus 2018-09-09 Completed Universit y of Vaccine 00:00:00 [facility] Influenza Virus 2018-09-09 Completed Universit y of Vaccine 00:00:00 [facility] Branch Influenza Virus 2018-09-09 Completed Universit y of Vaccine 00:00:00 [facility] Branch Influenza Virus 2018-09-09 Completed Universit y of Vaccine 00:00:00 [facility] Influenza Virus 2018-09-09 Completed Universit y of Vaccine 00:00:00 [facility] Influenza Virus 2018-09-09 Completed Universit y of Vaccine 00:00:00 [facility] Influenza Virus 2018-09-09 Completed Universit y of Vaccine 00:00:00 [facility] Influenza Virus 2018-09-09 Completed Universit y of Vaccine 00:00:00 [facility] Influenza Virus 2018-09-09 Completed Universit y of Vaccine 00:00:00 [facility] Branch Influenza Virus 2018-09-09 Completed Universit y of Vaccine 00:00:00 [facility] Influenza Virus 2018-09-09 Completed Universit y of Vaccine 00:00:00 [facility] Influenza Virus 2018-09-09 Completed Universit y of Vaccine 00:00:00 [facility] Influenza Virus 2018-09-09 Completed Universit y of Vaccine 00:00:00 [facility] Branch Pneumococcal 2016-11-02 Completed University [...] blood 2022-04-17 03:35:00 110 mm[Hg] Univer sity [facility] Diastolic blood 2022-04-17 03:35:00 77 [facility]Hg[facility] 2022-04-17 03:35:00 98 /min [facility] Oxygen saturation in 2022-04-17 03:35:00 99 /min [facility] Arterial blood by [facility] Pulse oximetry [facility] Body temperature 2022-04-17 03:25:00 37.33 Priyanka [facility] Respiratory rate 2022-04-17 03:25:00 18 /min [facility] Body height 2022-04-17 03:25:00 170.2 cm [facility] Body weight 2022-04-17 03:25:00 77.111 kg [facility] BMI 2022-04-17 03:25:00 26.63 kg/m2 [facility] Systolic blood 2022-03-01 16:36:00 143 mm[Hg] Univer sity [facility] Diastolic blood 2022-03-01 16:36:00 80 mm[Hg] Unive rsity [facility] Heart rate 2022-03-01 16:36:00 98 /min [facility]i ty [facility] [place] [facility] Respiratory rate 2022-03-01 16:36:00 16 /min Univ ersity of [place] [facility] Oxygen saturation in 2022-03-01 16:36:00 97 /min University of Arterial blood by [facility] birdie Pulse oximetry Branch Body temperature 2022-03-01 11:42:00 36.94 Priyanka Univ ersity of [place] [facility] Body height 2022-03-01 11:42:00 170.2 cm Universi ty [facility] [place] [facility] Body weight 2022-03-01 11:42:00 77.111 kg [facility]i ty [facility] [place] [facility] BMI 2022-03-01 11:42:00 26.63 kg/m2 [facility]i ty [facility] [place] [facility] Systolic blood 2021-11-02 17:17:00 109 mm[Hg] Univer sity of pressure [place] [facility] Diastolic blood 2021-11-02 17:17:00 67 mm[Hg] Unive rsity of pressure [place] [facility] Heart rate 2021-11-02 17:17:00 84 /min Universi ty [facility] [place] [facility] Body temperature 2021-11-02 17:17:00 36.44 Priyanka Univ ersity of [place] [facility] Respiratory rate 2021-11-02 17:17:00 18 /min Univ ersity of [place] [facility] Oxygen saturation in 2021-11-02 17:17:00 95 /min University of Arterial blood by [facility] Pulse oximetry Branch Body weight 2021-11-02 09:17:00 [...] University of Arterial blood by [facility] Pulse oximetry Branch Body temperature 2021-04-25 15:42:00 [...] University of Arterial blood by [facility] Pulse oximetry Branch Heart rate 2020-06-26 08:56:00 [...] University of Arterial blood by [facility] Pulse oximetry Branch Heart rate 2020-06-26 08:56:00 [...] University of Arterial blood by [facility] Pulse oximetry Branch Body temperature 2020-05-24 11:44:00 [...] University of Arterial blood by [facility] Pulse oximetry Branch Body temperature 2020-05-24 11:44:00 [...] 02:31:00 72 mm[Hg] Unive rsity of pressure [place] [facility] Heart rate 2020-03-24 02:31:00 69 /min [facility]i ty [facility] [place] [facility] Body temperature 2020-03-24 02:31:00 36.39 Priyanka Univ ersity of [place] [facility] Respiratory rate 2020-03-24 02:31:00 18 /min Univ ersity of [place] [facility] Oxygen saturation in 2020-03-24 02:31:00 97 /min University of Arterial blood by [facility] birdie Pulse oximetry Branch Systolic blood 2020-03-23 21:35:00 100 mm[Hg] Univer sity of pressure [place] [facility] Diastolic blood 2020-03-23 21:35:00 59 mm[Hg] Unive rsity of pressure [place] [facility] Heart rate 2020-03-23 21:35:00 79 /min [facility]i ty [facility] [place] [facility] Body temperature 2020-03-23 21:35:00 36.78 Priyanka Univ ersity of [place] [facility] Respiratory rate 2020-03-23 21:35:00 18 /min Univ ersity of [place] [facility] Oxygen saturation in 2020-03-23 21:35:00 99 /min University of Arterial blood by [facility] Pulse oximetry Branch Body weight 2020-03-23 09:41:00 [...] University of Arterial blood by [facility] Pulse oximetry Branch Body temperature 2020-03-21 20:03:00 [...] /min University of Arterial blood by [place] [employer] birdie Pulse oximetry Branch Body height 2020-03-05 [...] 2020-03-02 15:49:00 37.06 Priyanka Univ ersity of [place] [facility] Respiratory rate 2020-03-02 15:49:00 19 /min Univ ersity of [place] [facility] Oxygen saturation in 2020-03-02 15:49:00 96 /min University of Arterial blood by [facility] birdie Pulse oximetry Branch Body height 2020-03-01 00:54:00 170.2 cm Universi ty [facility] [place] [facility] Body weight 2020-03-01 00:54:00 76.975 kg Universi ty [facility] [place] [facility] BMI 2020-03-01 00:54:00 26.58 kg/m2 [facility] [place] [facility] Systolic blood 2020-01-17 21:08:00 116 mm[Hg] Univer sity of pressure [place] [facility] Diastolic blood 2020-01-17 21:08:00 78 mm[Hg] Unive rsity of pressure [place] [facility] Heart rate 2020-01-17 21:08:00 88 /min [facility] Body temperature 2020-01-17 21:08:00 36.72 Priyanka [facility] Respiratory rate 2020-01-17 21:08:00 18 /min [facility] Oxygen saturation in 2020-01-17 21:08:00 98 /min [facility] blood by [facility] Pulse oximetry Branch Body height 2020-01-16 06:21:00 172.7 cm [facility] Body weight 2020-01-16 04:35:00 83.462 kg [facility] BMI 2020-01-16 04:35:00 27.98 kg/m2 [facility] Procedures Procedure Date / Time Performing Clinician Source Performed CONSENT/REFUSAL FOR 2022-04-17 03:07:20 Doctor [place], [facility] DIAGNOSIS AND TREATMENT Malone [facility] XR LUMBAR SPINE 2 VW 2022-03-01 14:18:00 Angelika Aguilar [facility] EXTERNAL PROVIDER RECORDS 2021-11-19 06:01:00 Doctor Blaise, [facility] Malone [facility] POCT GLUCOSE (AUTOMATED) 2021-11-02 22:49:00 Aida Shah [facility] POCT GLUCOSE (AUTOMATED) 2021-11-02 17:06:00 Aida Shah [facility] POCT GLUCOSE (AUTOMATED) 2021-11-02 13:30:00 Aida Shah [facility] TROPONIN I 2021-11-02 09:29:00 Alexandra Hdz Jennie [facility] BASIC METABOLIC PANEL 2021-11-02 09:29:00 Sridhar Gordon [facility] (NA, K, CL, CO2, GLUCOSE, Medica l Branch BUN, CREATININE, CA) CBC WITH DIFF 2021-11-02 09:29:00 Heidi [facility] N-TERMINAL PRO-BNP 2021-11-02 09:29:00 Alexandra Hdz [facility] POCT GLUCOSE (AUTOMATED) 2021-11-02 01:27:00 [place], Aida [facility] POCT GLUCOSE (AUTOMATED) 2021-11-01 17:37:00 [facility] 2021-11-01 13:40:00 [facility] ([facility]OMATED) 2021-11-01 01:10:00 [facility] ([facility]OMATED) 2021-10-31 22:28:00 [facility] PO[facility] ([facility]OMATED) 2021-10-31 17:29:00 [facility] 2021-10-31 16:25:00 Alexandra Hdz [facility] TRANSTHORACIC ECHO (TTE) 2021-10-31 15:53:00 Alexadnra Hdz [facility] COMPLETE W/ CONTRAST Medical Bra [facility] POCT GLUCOSE (AUTOMATED) 2021-10-31 13:39:00 Martha Drake [facility] TROPONIN I 2021-10-31 10:08:00 [facility]IC METABOLIC PANEL 2021-10-31 10:08:00 [facility] (NA, K, CL, CO2, GLUCOSE, Medica l Branch BUN, CREATININE, CA) LIPID PANEL (36377)(TOTAL 2021-10-31 10:08:00 Alexandra Hdz [facility] CHOLESTEROL, [facility] TRIGLYCERIDES, HDL) CBC WITH DIFF 2021-10-31 10:08:00 [facility] URINALYSIS 2021-10-31 10:08:00 [facility] N-TERMINAL PRO-BNP 2021-10-31 10:08:00 Alexandra Hdz [facility] TROPONIN I 2021-10-31 06:17:00 [facility] X[facility] CHEST 1 VW 2021-10-31 01:30:56 Martha Drake [facility] LIPASE 2021-10-31 01:25:00 Martha Drake [facility] TROPONIN I 2021-10-31 01:25:00 Martha Drake [facility] COMP. METABOLIC PANEL 2021-10-31 01:25:00 Martha Drake [facility] ([id number]) Medical Branch CBC WITH DIFF 2021-10-31 01:25:00 Martha Drake [facility] GLYCOSYLATED HEMOGLOBIN 2021-10-31 01:25:00 Julio Cesar [facility] (A1C) [facility] PROTHROMBIN TIME / INR 2021-10-31 01:25:00 Martha Drake [facility] ACTIVATED PARTIAL 2021-10-31 01:25:00 Martha Drake [facility] N-TERMINAL PRO-BNP 2021-10-31 01:25:00 Martha Drake [facility] COVID-19 (ID NOW RAPID 2021-10-31 01:25:00 Martha Drake [facility] TESTING) Medical Branch LAB ONLY COVID 2021-10-31 01:25:00 Martha Drake [facility] INTERPRETATION [facility] HB ECG ROUTINE & RHYTHM 2021-10-31 01:20:03 Martha Drake [facility] URINALYSIS 2021-04-25 21:01:00 Nallely Zhao [facility] XR LUMBAR SPINE 2 VW 2021-04-25 18:41:00 Nallely Zhao [facility] acute hospital XR HIPS 2 VW LEFT 2021-04-25 18:41:00 Nallely Zhao [facility] CONSENT/REFUSAL FOR 2021-04-25 15:43:06 Doctor Unassigned, [facility] DIAGNOSIS AND TREATMENT [facility] CERVICAL SPINE WO 2020-06-26 09:35:01 Martha Drake [facility] CONTRAST [facility] CT LUMBAR SPINE WO 2020-06-26 09:35:01 Martha Drake [facility] CONTRAST Medical Branch CT THORACIC SPINE WO 2020-06-26 09:35:01 Martha Drake [facility] CONTRAST [facility] UNILATERAL DUPLEX SCAN OF 2020-05-24 14:53:40 [facility]it [facility] BY VASCULAR LAB Medical B ranch XR ANKLE 3+ VW LEFT 2020-05-24 13:22:26 Charanjit Heck [facility] HEPATIC FUNCTION PANEL 2020-05-24 13:13:00 Charanjit Heck [facility] ([id number]) (ALB,T.PRO,BILI Medical Branch T,BU/BC,ALT,AST,ALK PHOS) BASIC METABOLIC PANEL 2020-05-24 13:13:00 Charanjit Heck [facility] (NA, K, CL, CO2, GLUCOSE, Medica l Branch BUN, CREATININE, CA) CBC WITH DIFFERENTIAL 2020-05-24 13:13:00 Charanjit Heck [facility] PROTHROMBIN TIME / INR 2020-05-24 13:13:00 Charanjit Heck [facility] ACTIVATED PARTIAL 2020-05-24 13:13:00 Charanjit Heck [facility] THRMPLAS [facility] NOTICE OF PRIVACY 2020-05-24 11:38:26 Doctor Unassigned, [facility] PRACTICES [facility] [place] CONSENT/REFUSAL FOR 2020-05-24 11:35:52 Doctor Unassrose mary, [facility] DIAGNOSIS AND TREATMENT [facility] [place] POCT GLUCOSE (AUTOMATED) 2020-03-23 22:32:00 Jamel Flores [facility] POCT GLUCOSE (AUTOMATED) 2020-03-23 18:07:00 Jamel Flores [facility] POCT GLUCOSE (AUTOMATED) 2020-03-23 14:57:00 Jamel Flores [facility] ECHO ROUTINE W/DOPPLER 2020-03-23 13:33:57 Tereza Cano [facility] EKG-12 LEAD 2020-03-23 12:56:59 Jamel Flores [place] o [facility] MAGNESIUM 2020-03-23 11:15:00 Bod[facility] TROPONIN [facility] 2020-03-23 11:15:00 Jerome [facility] BASIC METABOLIC PANEL 2020-03-23 11:15:00 [facility] (NA, K, CL, CO2, GLUCOSE, Medica l Branch BUN, CREATININE, CA) PROTHROMBIN TIME / INR 2020-03-23 11:15:00 Tereza Cano [facility] ACTIVATED PARTIAL 2020-03-23 11:15:00 Jerome [facility] EKG-12 LEAD 2020-03-23 07:51:19 Jamel Flores [facility] MAGNESIUM 2020-03-23 05:55:00 Jerome [facility] TROPONIN I 2020-03-23 05:55:00 Jerome [facility] BASIC METABOLIC PANEL 2020-03-23 05:55:00 [facility] (NA, K, CL, CO2, GLUCOSE, Medica l Branch BUN, CREATININE, CA) LIPID PANEL ([id number])(TOTAL 2020-03-23 05:55:00 Tereza Cano [facility] CHOLESTEROL, [facility] TRIGLYCERIDES, HDL) PROTHROMBIN TIME / INR 2020-03-23 02:55:00 Sallie Eckert [facility] ACTIVATED PARTIAL 2020-03-23 02:55:00 Babar [facility] XR CHEST 2 VW 2020-03-23 01:52:37 Esteban Singletary [facility] CORONAVIRUS COVID-19 2020-03-23 00:50:00 Esteban Singletary [facility] TESTING [facility] FERRITIN SERUM 2020-03-22 23:36:00 [facility] 2020-03-22 23:36:00 Esteban Singletary [facility] COMP. METABOLIC PANEL 2020-03-22 23:36:00 Esteban Singletary [facility] ([id number]) [facility] IRON PANEL 2020-03-22 23:36:00 Jerome [facility] CBC WITH DIFFERENTIAL 2020-03-22 23:36:00 Esteban Singletary [facility] N-TERMINAL PRO-BNP 2020-03-22 23:36:00 Esteban Singletary [facility] EKG-12 LEAD 2020-03-22 23:08:53 Danielle [facility] EKG-12 LEAD 2020-03-22 23:08:15 Danielle [facility] XR CHEST 1 VW 2020-03-21 20:42:35 Myles Harry [facility] LACTIC ACID WHOLE BLOOD 2020-03-21 20:38:00 Myles Harry [facility] acute hospital LIPASE 2020-03-21 20:19:00 Myles Harry [facility] TROPONIN I 2020-03-21 20:19:00 Myles Harry [facility] COMP. METABOLIC PANEL 2020-03-21 20:19:00 Myles Harry [facility] ([id number] PROTHROMBIN TIME / INR 2020-03-21 20:19:00 Myles Harry [facility] acute hospital N-TERMINAL PRO-BNP 2020-03-21 20:19:00 Myles Harry [facility] CORONAVIRUS COVID-19 2020-03-21 20:19:00 Myles Harry [facility] EKG-12 LEAD 2020-03-21 20:11:28 Myles Harry [facility] POCT GLUCOSE (AUTOMATED) 2020-03-07 20:56:00 Julio Cesar Zixiazra [employer] [facility] POCT GLUCOSE (AUTOMATED) 2020-03-07 15:34:00 Sarah Adorno [employer] [facility] POCT GLUCOSE (AUTOMATED) 2020-03-07 12:56:00 Sarah Adorno [facility] acute hospital URIC ACID 2020-03-07 10:14:00 Holland Garza [facility] TROPONIN I 2020-03-07 10:14:00 Lulu Harris o [facility] BASIC METABOLIC PANEL 2020-03-07 10:14:00 Edionwe, [facility] (NA, K, CL, CO2, GLUCOSE, Medica l Branch BUN, CREATININE, CA) CBC WITH DIFFERENTIAL 2020-03-07 10:14:00 Julio Cesar [facility] N-TERMINAL PRO-BNP 2020-03-07 10:14:00 Lulu Harris [facility] POCT GLUCOSE (AUTOMATED) 2020-03-06 21:16:00 Edionrosalio [facility] POCT GLUCOSE (AUTOMATED) 2020-03-06 16:10:00 Edionrosalio [facility] POCT GLUCOSE (AUTOMATED) 2020-03-06 12:38:00 Edconsuelo [facility] TROPONIN I 2020-03-06 08:51:00 [facility]OLIC PANEL 2020-03-06 08:51:00 Edionrosalio [facility] (NA, K, CL, CO2, GLUCOSE, Medica l Branch BUN, CREATININE, CA) CBC WITH DIFFERENTIAL 2020-03-06 08:51:00 Julio Cesar [facility] POCT GLUCOSE (AUTOMATED) 2020-03-06 01:16:00 Edconsuelo [facility] TROPONIN I 2020-03-05 23:25:00 Edconsuelo [facility] POCT GLUCOSE (AUTOMATED) 2020-03-05 21:14:00 Edionrosalio [facility] POCT GLUCOSE (AUTOMATED) 2020-03-05 16:39:00 Edionrosalio [facility] POCT GLUCOSE (AUTOMATED) 2020-03-05 12:47:00 Edionrosalio [facility] TROPONIN I 2020-03-05 09:50:00 [facility] BASIC METABOLIC PANEL 2020-03-05 09:50:00 Edionrosalio [facility] (NA, K, CL, CO2, GLUCOSE, Medica l Branch BUN, CREATININE, CA) CBC WITH DIFFERENTIAL 2020-03-05 09:50:00 Edionrosalio, [facility] EKG-12 LEAD 2020-03-05 00:36:54 [facility] 2020-03-05 00:31:03 Bobo Urrutia [facility] CORONAVIRUS COVID-19 2020-03-05 00:03:00 Charanjit Heck [facility] TESTING [facility] XR CHEST 1 VW 2020-03-04 23:58:59 Charanjit Heck [facility] LIPASE 2020-03-04 23:29:00 Charanjit Heck [facility] TROPONIN I 2020-03-04 23:29:00 Charanjit Heck [facility] HEPATIC FUNCTION PANEL 2020-03-04 23:29:00 Charanjit Heck [facility] ([id number]) (ALB,T.PRO,BILI Medical Branch T,BU/BC,ALT,AST,ALK PHOS) BASIC METABOLIC PANEL 2020-03-04 23:29:00 Charanjit Heck [facility] (NA, K, CL, CO2, GLUCOSE, Medica l Branch BUN, CREATININE, CA) CBC WITH DIFFERENTIAL 2020-03-04 23:29:00 Umang Charanjit [facility] PROTHROMBIN TIME / INR 2020-03-04 23:29:00 Charanjit Heck [facility] ACTIVATED PARTIAL 2020-03-04 23:29:00 [facility] N-TERMINAL PRO-BNP 2020-03-04 23:29:00 Charanjit Heck [facility] EKG-12 LEAD 2020-03-04 23:15:42 Charanjit Heck [facility] EKG-12 LEAD 2020-03-04 23:10:23 Charanjit Heck [facility] EMERGENCY DEPARTMENT 2020-03-04 05:01:00 Doctor Unassigned, [facility] DOCUMENTS [facility] POCT GLUCOSE (AUTOMATED) 2020-03-02 15:52:00 Lulu Harris [facility] POCT GLUCOSE (AUTOMATED) 2020-03-02 12:39:00 Lulu Harris [facility] MAGNESIUM 2020-03-02 08:57:00 Carolyn [facility] BASIC METABOLIC PANEL 2020-03-02 08:57:00 Carolyn [facility] (NA, K, CL, CO2, GLUCOSE, Medica l Branch BUN, CREATININE, CA) N-TERMINAL PRO-BNP 2020-03-02 08:57:00 Carolyn [facility] POCT GLUCOSE (AUTOMATED) 2020-03-01 20:39:00 Lulu Harris [facility] MAGNESIUM 2020-03-01 08:43:00 Steven [facility] TROPONIN I 2020-03-01 08:43:00 Carolyn [facility] BASIC METABOLIC PANEL 2020-03-01 08:43:00 Steven Lulu [facility] (NA, K, CL, CO2, GLUCOSE, Medica l Branch BUN, CREATININE, CA) CBC WITH DIFFERENTIAL 2020-03-01 08:43:00 Steven Lulu [facility] N-TERMINAL PRO-BNP 2020-03-01 08:43:00 Carolyn [facility] VITAMIN B12, LEVEL 2020-03-01 03:49:00 Carolyn [facility] FOLATE 2020-03-01 03:49:00 Carolyn [facility] SEDIMENTATION RATE 2020-03-01 03:49:00 Carolyn [facility] POCT GLUCOSE (AUTOMATED) 2020-03-01 03:39:00 Lulu Harris [facility] PHOSPHORUS 2020-03-01 02:28:00 Steven [facility] URIC ACID 2020-03-01 02:28:00 Carolyn [facility] TROPONIN I 2020-03-01 02:28:00 Carolyn [facility] HEPATIC FUNCTION PANEL 2020-03-01 02:28:00 Carolyn alek [facility] ([id number]) (ALB,T.PRO,BILI Medical Branch T,BU/BC,ALT,AST,ALK PHOS) PROTHROMBIN TIME / INR 2020-03-01 02:28:00 Ivory Leon [facility] N-TERMINAL PRO-BNP 2020-03-01 02:28:00 Lulu Harris [facility] PROCALCITONIN 2020-03-01 02:28:00 Carolyn [facility] EKG-12 LEAD 2020-03-01 01:54:29 Carolyn [facility] EKG-12 LEAD 2020-02-29 23:16:21 Bobo Urrutia [facility] XR CHEST 1 VW COVID 2020-02-29 23:14:25 Bobo Urrutia [facility] EKG-12 LEAD 2020-02-29 23:13:50 Bobo Urrutia [facility] LACTIC ACID WHOLE BLOOD 2020-02-29 22:21:00 Bobo Urrutia [facility] acute [facility] CORONAVIRUS COVID-19 2020-02-29 22:20:00 Bobo Urrutia [facility] TESTING [facility] CREATINE KINASE 2020-02-29 22:14:00 Carolyn [facility] URIC ACID 2020-02-29 22:14:00 Carolyn [facility] LIPASE 2020-02-29 22:14:00 Bobo Urrutia [facility] MAGNESIUM 2020-02-29 22:14:00 Carolyn [facility] TROPONIN I 2020-02-29 22:14:00 Bobo Urrutia [facility] THYROID STIMULATING 2020-02-29 22:14:00 Carolyn [facility] HORMONE [facility] BASIC METABOLIC PANEL 2020-02-29 22:14:00 Bobo Urrutia [facility] (NA, K, CL, CO2, GLUCOSE, Medica l Branch BUN, CREATININE, CA) CBC WITH DIFFERENTIAL 2020-02-29 22:14:00 Bobo Urrutia [facility] GLYCOSYLATED HEMOGLOBIN 2020-02-29 22:14:00 Carolyn [facility] (A1C) [facility] N-TERMINAL PRO-BNP 2020-02-29 22:14:00 Ivory Leon [facility] EKG-12 LEAD 2020-02-29 21:59:12 [facility] 2020-02-29 21:48:49 Bobo Urrutia [facility] EMERGENCY DEPARTMENT 2020-02-29 05:01:00 Doctor Unassigned, [facility] DOCUMENTS [facility] POCT GLUCOSE (AUTOMATED) 2020-01-17 18:15:00 Julio Cesar [facility] TROPONIN I 2020-01-17 16:31:00 Julio Cesar [facility] ACTIVATED PARTIAL 2020-01-17 16:31:00 Carolyn [facility] POCT GLUCOSE (AUTOMATED) 2020-01-17 11:56:00 Julio Cesar [facility] TROPONIN I 2020-01-17 09:52:00 Julio Cesar [facility] BASIC METABOLIC PANEL 2020-01-17 09:52:00 [facility] (NA, K, CL, CO2, GLUCOSE, Medica l Branch BUN, CREATININE, CA) CBC WITH DIFFERENTIAL 2020-01-17 09:52:00 [facility] 2020-01-17 09:52:00 Julio Cesar [facility] POCT GLUCOSE (AUTOMATED) 2020-01-16 23:59:00 Julio Cesar [facility] EKG-12 LEAD 2020-01-16 22:15:50 Julio Cesar [facility] TROPONIN I 2020-01-16 20:04:00 Julio Cesar [facility] ACTIVATED PARTIAL 2020-01-16 20:04:00 Ayo Scruggs [facility] POCT GLUCOSE (AUTOMATED) 2020-01-16 17:05:00 Julio Cesar [facility] POCT GLUCOSE (AUTOMATED) 2020-01-16 13:38:00 [facility]consuelo [facility] TROPONIN I 2020-01-16 11:11:00 Julio Cesar [facility] LIPID PANEL ([id number])(TOTAL 2020-01-16 11:11:00 [facility]io [facility] TRIGLY[facility], HDL) ACTIVATED PARTIAL 2020-01-16 11:11:00 Julio Cesar [facility] CRITICAL CARE 2020-01-16 05:48:18 Charanjit Heck [facility] XR CHEST 1 VW 2020-01-16 04:46:44 Charanjit Heck [facility] TROPONIN I 2020-01-16 04:38:00 Charanjit Heck [facility] HEPATIC FUNCTION PANEL 2020-01-16 04:38:00 Charanjit Heck [facility] ([id number]) (ALB,T.PRO,BILI Medical Branch T,BU/BC,ALT,AST,ALK PHOS) BASIC METABOLIC PANEL 2020-01-16 04:38:00 Charanjit Heck [facility] (NA, K, CL, CO2, GLUCOSE, Medica l Branch BUN, CREATININE, CA) CBC WITH DIFFERENTIAL 2020-01-16 04:38:00 Charanjit Heck [facility] GLYCOSYLATED HEMOGLOBIN 2020-01-16 04:38:00 [facility] PROTHROMBIN TIME / INR 2020-01-16 04:38:00 Charanjit Heck [facility] ACTIVATED PARTIAL 2020-01-16 04:38:00 Charanjit Heck [facility] N-TERMINAL PRO-BNP 2020-01-16 04:38:00 Charanjit Heck [facility] EKG-12 LEAD 2020-01-16 04:37:48 Charanjit Heck [facility] EKG-12 LEAD 2020-01-16 04:35:35 Charanjit Heck [facility] AUTHORIZATION FOR RELEASE 2019-07-12 05:01:00 Doctor Unassigned, [facility] Encounters Start End Encounter Admission Attending Care Care Encounter Source Date/Time Date/Time Type Type Clinicians Facility Department ID 2022-03-06 Outpatient [facility] [id number] [place] 08:51:10 [id number] [facility] 2021-12-16 [facility] [id number] [facility] 11:30:00 Jim [facility] 2021-12-16 Outpatient STLMLC STLM [id number] Common 09:19:01 [facility] 2021-12-11 Outpatient Patriceender, STLMLC STLM [id number] Common 14:38:21 Anneliese [facility] 2021-12-11 [facility] [id number] Common 11:50:18 Anneliese [facility] 2021-09-16 Emergency [facility] [id number] [facility] Emergency [facility] [id number] Univers 11:42:[facility]-09-13 Emergency [facility] [id number] Univers 05:40:48 [facility] 2022-04-23 2022-04-[address] [facility] [id number] Common 00:00:00 00:00:00 [facility] 2022-04-16 2022-04-16 Emergency X RAJINDER [facility] ERT [id number] Univers 22:29:00 23:27:00 LUZ [facility] 2022-04-16 2022-04-16 Emergency [facility] [id number] Univers 22:29:00 23:27:00 Luz Kumar FIELDS [id number] i ty [facility] [id number] [facility] [id number] [facility] 084 Branch 2022-03-05 2022-03-10 Inpatient Renu MURGUIA, [facility] CAR [id number] [facility] 06:12:00 22:30:00 BRODIE 2022-03-01 2022-03-01 Emergency X LAUREN [facility] ERT [id number] Univers 06:52:00 12:04:00 ANGELIKA leon [facility] 2022-03-01 2022-03-01 Emergency [facility] [id number] [facility] 06:52:00 12:04:00 Angelika RAMSEY [id number] [id number] [facility] [id number] [facility] 084 Branch 2021-12-25 2021-12-25 Inpatient ATTAR, [facility] [id number] 00:00:00 00:00:[address] 2021-12-19 2021-12-25 Inpatient LAUREN, [facility] [id number] [place] 00:00:00 00:00:00 JAYSON [address] 2021-12-24 2021-12-24 ambulatory STLMLC STLMLC [id number] Common 00:00:00 00:00:00 [facility] 2021-12-20 2021-12-20 Inpatient ATTAR, [facility] [id number] [place] 00:00:00 00:00:[address] 2021-12-17 2021-12-17 ambulatory STLMLC STLMLC [id number] Common 00:00:00 00:00:00 [facility] 2021-12-16 2021-12-16 ambulatory STLMLC STLMLC [id number] Common 00:00:00 00:00:00 [facility] 2021-11-19 2021-11-19 Orders Doctor JONES [id number] Univers 00:00:00 00:00:00 Only Unassigned, ASHLEIGH [id number] ity of [place] [facility] [id number] [place] [phone] [facility] 009 Branch 2021-11-04 2021-11-04 Transition SHAREE Maria [id number] Univers 00:00:00 00:00:00 of Care Supa GREWAL [id number] [id number] [id number] [facility] 403 Branch 2021-10-302021-11-02 Inpatient X ALYSSA INCESAR ZEFERINO [id number] Univers 19:14:00 18:15:00 AIDA ity of [facility] 2021-10-30 2021-11-02 [facility] Martha Drake [facility] [id number]. [id number] Univers 19:14:00 18:15:00 Encounter Aida Shah [id number] ity [facility] [id number] [facility] [id number] [facility] 081 Branch 2021-05-17 2021-05-17 Letter PcpROBERT [id number] Univers 00:00:00 00:00:00 (Out) Patient ASHLEIGH [id number] it y of [facility] [place] [id number] [facility] 019 Branch 2021-04-25 2021-04-25 Emergency Cece, TRAUMA [id number] Univers 10:43:00 17:38:00 [facility] [id number] i ty of Ceasar 4.2.7.[address] [address] [id number] [facility] 014 Branch 2020-06-26 2020-06-26 Emergency [facility] [id number] 03:50:00 06:45:00 Martha Ramsey [id number] [place] 4.2.7.2.686 [place] [id number] [facility] 2020-06-26 2020-06-26 [facility] [id number] Univers 03:50:00 06:45:00 Martha Ramsey [id number] ity of [place] 4.2.7.2.[address] [place] [address] [id number] [facility] 084 Branch 2020-05-24 2020-05-24 [facility] [id number] 06:40:47 10:54:00 Charanjit Ramsey [id number] [place] [id number] [place] [id number] [facility] 2020-05-24 2020-05-24 Emergency Umang [facility] [id number] Univers 06:40:47 10:54:00 Charanjit Ramsey [id number] i ty of [place] [id number] [place] [address]364 [facility] 2020-03-29 2020-03-29 Letter Jamel Flores [id number] 00:00:00 00:00:00 (Out) T [facility] [id number] Hospital [id number] [id number] [facility] 2020-03-29 2020-03-29 Letter Jamel Flores [id number] Univers 00:00:00 00:00:00 (Out) T Ashleigh [id number] it y of Hospital 4.2.7.2.686 [place] [id number] [address] 2020-03-26 2020-03-26 Transition Sharee George 1.2.840.114 [id number] 00:00:00 00:00:00 of Care Sherrell Grewal [id number] [place] 4.2.7.2.686 [id number] [facility] 2020-03-26 2020-03-26 Transition Sharee George [id number] Univers 00:00:00 00:00:00 of Care Sherrell Grewal [id number] it y of [place] [id number] [facility] 403 [facility] 2020-03-22 2020-03-23 Emergency Sallie Eckertnie 1.2.840. [id number] Univers 18:02:47 21:55:00 Jamel Flores [id number] ity of [facility] [id number] [place] [phone] [place] 540369 [facility] 2020-03-22 2020-03-23 Outpatient X JAMEL FLORES [facility] [id number] Univers 18:02:47 21:55:00 ity of [facility] 2020-03-21 2020-03-21 Emergency Kamryn, [facility] [id number] Univers 15:02:08 17:16:00 Mylesazra Ramsey [id number] i ty of [place] [phone] [place] [address]364 Branch 2020-03-21 2020-03-21 Emergency X KAMRYN, [facility] [facility] ERT [id number] Univers 15:02:08 17:16:00 MYLES ity [facility] 2020-03-13 2020-03-13 Outpatient Raju_P MMG MMG [id number] [place] 05:24:00 05:24:00 0428 [facility] Group 2020-03-08 2020-03-08 Transition Sharee Cool 1.2.840.114 [id number] Univers 00:00:00 00:00:00 of Care Prema Grewal 350.1.13.10 [phone] [address] 2020-03-04 2020-03-07 [facility] Charanjit Heck [facility] 1.2.840.1 14 [id number] Univers 18:01:05 18:00:00 Encounter Sarah Adorno [place] 350.1.13.10 ity of [place] [phone] [place] [address] [address] 2020-03-04 2020-03-07 Inpatient X JULIO CESAR [facility] ZEFERINO [id number] Univers 18:01:05 18:00:00 SARAH ity of [facility] 2020-03-03 2020-03-03 Transition Sharee Silva 1.2.840.114 [id number] Univers 00:00:00 00:00:00 of Care Isatu Grewal 350.1.13.10 [place] [id number] [address] 2020-02-29 2020-03-02 [facility] Bobo Urrutia [facility] 1.2.840.11 [id number] Univers 16:53:09 12:18:00 Encounter Lulu Harris 350.1.13.10 it[place] [phone] [place] [address] [facility] 2020-02-29 2020-03-02 Inpatient X STEVEN [facility] ZEFERINO [id number] Univers 16:53:09 12:18:00 LULU leon [facility] 2020-02-15 2020-02-15 Outpatient R [facility] [id number] Univers 11:30:00 11:30:00 ROSEMARY leon [facility] 2020-02-15 2020-02-15 [facility] 1.2.840.114 [id number] Univers 08:13:42 08:43:42 ne Visit Rosemary Ramsey 350.1.13.10 [place] [phone] Mn dical nal [address] 2020-01-18 2020-01-18 Transition Sharee Harvey 1.2.840.114 [id number] Univers 00:00:00 00:00:00 of Care Ana M Grewal 350.1.13.10 it [place] [phone] [facility] [address] 2020-01-15 2020-01-17 [facility] Charanjit Heck [facility] 1.2.840.1 14 [id number] Univers 22:33:37 16:58:00 Encounter Sarah Adorno 350.1.13.10 [place] [id number] [place] [address] [address] 2020-01-15 2020-01-17 Outpatient X JULIO CESAR [facility] [id number] Univers 22:33:37 16:58:00 SARAH leon [facility] 2019-10-07 2019-10-07 Outpatient Ko Gant [id number] Common 10:48:00 10:48:00 [facility] 2019-10-05 2019-10-05 Outpatient Ko Gant 28 [id number] Common 16:06:00 16:06:00 [facility] [address] [facility] 2019-07-27 2019-07-27 Refill TIARA Larsen 1.2.840.114 [id number] Univers 00:00:00 00:00:00 Rosemary Ramsey 350.1.13.10 i [place] [phone] Mn dical nal [address] [facility] 2019-07-12 2019-07-12 Out[facility] [id number] Common 16:24:00 16:24:00 [facility] [address] [facility] 2019-07-12 2019-07-12 Orders Doctor JONES 1.2.840.114 [id number] Univers 00:00:00 00:00:00 Only Unassigned, ASHLEIGH 350.1.13.10 ity of [place] [facility] 4.2.7.2.686 [place] [phone] [place] [address] [address] 2019-07-06 2019-07-06 Out[facility] [id number] Common 14:00:00 14:00:00 [facility] [address] [facility] Results Test Description Test Time Test Comments Results Result Comments Source SARS-CoV-2 (COVID-19) RNA [Presence] in Respiratory sp ecimen by 2021-12-20 07:04:48 ERI with probe detection Test Item Value Reference Range Interpretation Comme nts SARS-CoV-2 (COVID-19) RNA [Presence] in Respiratory Not detected No t-Detected specimen by ERI with probe detection (test code = 03772-0) 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 (test code = 68545-5) Whether the patient has symptoms related to condition of interest (test code = 52887-7) Patient was hospitalized because of this condition (test code = 17119-5) Whether the patient was admitted to intensive care unit (ICU) for condition of interest (test code = 79853-4) Whether patient resides in a congregate care setting (test code = 92474-5) POCT GLUCOSE (AUTOMATED)2021-11-02 22:57:12 Test Item Value Reference Range Interpretation Comments POCT GLU (test code = 5249251262) 224 mg/dL 70-110 H Lab Interpretation (test code = Abnormal 59928-9) [facility] LEAD ROUTINE [id number] 22:37:57 Test Item Value Reference Range Interpretation Comments Lab Interpretation (test code = Abnormal 49670-5) [facility] GLUCOSE (AUTOMATED)2021-11-02 17:43:02 Test Item Value Reference Range Interpretation Comments POCT GLU (test code = 5834174439) 264 mg/dL 70-110 H Lab Interpretation (test code = Abnormal 69710-8) [facility] [id number] 15:07:47 Test Item Value Reference Interpretation Comments Range TROPONIN I (test 0.064 ng/mL See_Comment H [Automated code = 9747101673) message] The system which generated this result [...] biotin. Lab Interpretation Abnormal (test code = 78381-0) [facility] [id number] 15:04:26 Test Item Value Reference Range Interpretation Comments NT-proBNP (test code 800 pg/mL See_Comment H [Autom ated = 1129789271) message] The system which generated this result transmitted reference range : <=450. The reference range was not used to interpret this result as normal/abnormal . ALYSSA (test code = ALYSSA) Biotin has been reported to cause a negative bias, interpret results relative to patient's use of biotin. Lab Interpretation Abnormal (test code = 28512-5) [facility] GLUCOSE (AUTOMATED)2021-11-02 13:36:38 Test Item Value Reference Range Interpretation Comments POCT GLU (test code = 6821203339) 185 mg/dL 70-110 H Lab Interpretation (test code = Abnormal 34601-1) [facility] METABOLIC PANEL (NA, K, CL, CO2, GLUCOSE, BUN, CREATININE, CA)2021-11-02 10:26:43 Test Item Value Reference Range Interpretation Comments NA (test code = 136 mmol/L 135-145 3454374933) K (test code = 4.0 mmol/L 3.5-5.0 5979514724) CL (test code = 99 mmol/L 98-108 7163398905) CO2 TOTAL (test code = 27 mmol/L 23-31 7556769349) AGAP (test code = 2-16 2810399043) BUN (test code = 30 mg/dL 7-23 H 4241025175) GLUCOSE (test code = 165 mg/dL 70-110 H 7445971182) CREATININE (test code = 1.42 mg/dL 0.60-1.25 H 5938588119) CALCIUM (test code = 9.5 mg/dL 8.6-10.6 7161144174) eGFR (test code = mL/min/1.73m2 3474409629) ALYSSA (test code = ALYSSA) Association of [...] tests). Lab Interpretation Abnormal (test code = 20757-2) [facility] WITH [id number] 10:01:58 Test Item Value Reference Range Interpretation [...] RDW-SD (test code = 39.8 fL 38.5-51.6 12341-2) RDW-CV (test code = 11.5 % 12.1-15.4 L 788-0) PLT (test code = See_Comment [Automated 777-3) message] The sy stem which generated this result transmitted reference range : 150 - 328 10*3/ ?L. The reference r corey was not used to interpret this result as normal/abnormal . MPV (test code = 10.5 fL 9.8-13.0 89466-8) NRBC/100 WBC (test See_Comment [Automat ed code = 8014433151) message] The system which generated this result transmitted reference range : 0.0 - 10.0 /100 WBCs. The refer ence range was not u sed to interpret th is result as normal/abnormal . NRBC x10^3 (test code <0.01 See_Comment [Auto mated = 9292451755) message] The s ystem which generated this result transmitted reference range : 10*3/?L. The reference range was not used to interpret this result as normal/abnormal . GRAN MAT (NEUT) % 59.3 % (test code = 770-8) IMM GRAN % (test code 0.30 % = 0302496992) LYMPH % (test code = 25.0 % 736-9) MONO % (test code = 10.7 % 5905-5) EOS % (test code = 4.1 % 713-8) BASO % (test code = 0.6 % 706-2) GRAN MAT x10^3(ANC) 4.19 10*3/uL 1.99-6.95 (test code = 5856265240) IMM GRAN x10^3 (test <0.03 0.00-0.06 code = 9266989016) LYMPH x10^3 (test code 1.77 10*3/uL 1.09-3.23 = 731-0) MONO x10^3 (test code 0.76 10*3/uL 0.36-1.02 = 742-7) EOS x10^3 (test code = 0.29 10*3/uL 0.06-0.53 711-2) BASO x10^3 (test code 0.04 10*3/uL 0.01-0.09 = 704-7) Lab Interpretation Abnormal (test code = 56996-7) [facility] GLUCOSE (AUTOMATED)2021-11-02 01:29:56 Test Item Value Reference Range Interpretation Comments POCT GLU (test code = 1107119571) 167 mg/dL 70-110 H Lab Interpretation (test code = Abnormal 63856-7) [facility] GLUCOSE (AUTOMATED)2021-11-01 17:40:19 Test Item Value Reference Range Interpretation Comments POCT GLU (test code = 4732115901) 193 mg/dL 70-110 H Lab Interpretation (test code = Abnormal 66819-1) [facility] GLUCOSE (AUTOMATED)2021-11-01 13:44:28 Test Item Value Reference Range Interpretation Comments POCT GLU (test code = 0314290387) 200 mg/dL 70-110 H Lab Interpretation (test code = Abnormal 80082-5) [facility] GLUCOSE (AUTOMATED)2021-11-01 01:38:43 Test Item Value Reference Range Interpretation Comments POCT GLU (test code = 6433942825) 177 mg/dL 70-110 H Lab Interpretation (test code = Abnormal 98950-0) [facility] GLUCOSE (AUTOMATED)2021-10-31 22:39:43 Test Item Value Reference Range Interpretation Comments POCT GLU (test code = 3707324972) 174 mg/dL 70-110 H Lab Interpretation (test code = Abnormal 41089-8) [facility] GLUCOSE (AUTOMATED)2021-10-31 17:40:22 Test Item Value Reference Range Interpretation Comments POCT GLU (test code = 8706517684) 224 mg/dL 70-110 H Lab Interpretation (test code = Abnormal 49276-5) [facility] Hospital[facility] [id number] 17:14:58 Test Item Value Reference Interpretation Comments Range TROPONIN I (test 0.080 ng/mL See_Comment H [Automated code = 4548704832) message] The system which generated this result [...] biotin. Lab Interpretation Abnormal (test code = 18589-4) [facility] HospitalN-TERMINAL [id number] 15:14:03 Test Item Value Reference Range Interpretation Comments NT-proBNP (test code 474 pg/mL See_Comment H [Autom ated = 5591210749) message] The system which generated this result transmitted reference range : <=450. The reference range was not used to interpret this result as normal/abnormal . ALYSSA (test code = ALYSSA) Biotin has been reported to cause a negative bias, interpret results relative to patient's use of biotin. Lab Interpretation Abnormal (test code = 48786-5) [facility] HospitalLIPID PANEL (72848)(TOTAL CHOLESTEROL, TRIGLYCERIDES, HDL)2021-10-31 15:05:19 Test Item Value Reference Range Interpretation Comments CHOL (test code = 101 mg/dL 120-200 L 0467674831) HDL (test code = 36 mg/dL >40 L 0345520967) HDLC RATIO (test code = See_Comment [Au tomated message] 3945262851) The system [employer] generated this result transmit diamante reference range : <=5.0. The refe rence range was not u sed to interpret th is result as normal/abnormal . TRIG (test code = 143 mg/dL 30-170 8151686028) LDL CHOL (test code = 36 mg/dL See_Comment [Auto mated message] 28103-5) The system [employer] generated this result transmit diamante reference range : <=160. The refe rence range was not u sed to interpret th is result as normal/abnormal . VLDL (test code = 29 mg/dL 5-60 7265000970) Lab Interpretation (test Abnormal code = 23084-8) [facility] HospitalPO[facility] (AUTOMATED)2021-10-31 13:44:00 Test Item Value Reference Range Interpretation Comments POCT GLU (test code = 3800347229) 150 mg/dL 70-110 H Lab Interpretation (test code = Abnormal 65253-4) [facility] HospitalCB with [id number] 11:13:14 Test Item Value Reference Range Interpretation [...] RDW-SD (test code = 39.9 fL 38.5-51.6 00775-3) RDW-CV (test code = 11.8 % 12.1-15.4 L 788-0) PLT (test code = See_Comment [Automated 777-3) message] The sy stem which generated this result transmitted reference range : 150 - 328 10*3/ ?L. The reference r corey was not used to interpret this result as normal/abnormal . MPV (test code = 11.0 fL 9.8-13.0 72191-6) NRBC/100 WBC (test See_Comment [Automat ed code = 2805173379) message] The system which generated this result transmitted reference range : 0.0 - 10.0 /100 WBCs. The refer ence range was not u sed to interpret th is result as normal/abnormal . NRBC x10^3 (test code <0.01 See_Comment [Auto mated = 4622030302) message] The s ystem which generated this result transmitted reference range : 10*3/?L. The reference range was not used to interpret this result as normal/abnormal . GRAN MAT (NEUT) % 64.3 % (test code = 770-8) IMM GRAN % (test code 0.30 % = 2395188570) LYMPH % (test code = 21.7 % 736-9) MONO % (test code = 10.0 % 5905-5) EOS % (test code = 3.1 % 713-8) BASO % (test code = 0.6 % 706-2) GRAN MAT x10^3(ANC) 4.35 10*3/uL 1.99-6.95 (test code = 6516049317) IMM GRAN x10^3 (test <0.03 0.00-0.06 code = 7186645970) LYMPH x10^3 (test code 1.47 10*3/uL 1.09-3.23 = 731-0) MONO x10^3 (test code 0.68 10*3/uL 0.36-1.02 = 742-7) EOS x10^3 (test code = 0.21 10*3/uL 0.06-0.53 711-2) BASO x10^3 (test code 0.04 10*3/uL 0.01-0.09 = 704-7) Lab Interpretation Abnormal (test code = 21680-9) [facility] [id number] 11:09:53 Test Item Value Reference Interpretation Comments Range TROPONIN I (test 0.101 ng/mL See_Comment H [Automated code = 3180987820) message] The system which generated this result [...] biotin. Lab Interpretation Abnormal (test code = 69744-4) [facility] (NA, K, CL, CO2, GLUCOSE, BUN, CREATININE, CA)2021-10-31 10:59:31 Test Item Value Reference Range Interpretation Comments NA (test code = 139 mmol/L 135-145 9572230009) K (test code = 4.1 mmol/L 3.5-5.0 0262046703) CL (test code = 103 mmol/L 98-108 0916250183) CO2 TOTAL (test code = 28 mmol/L 23-31 6602847913) AGAP (test code = 2-16 2363335720) BUN (test code = 43 mg/dL 7-23 H 6371637412) GLUCOSE (test code = 165 mg/dL 70-110 H 1754724120) CREATININE (test code = 1.68 mg/dL 0.60-1.25 H 3682365269) CALCIUM (test code = 9.6 mg/dL 8.6-10.6 1331335524) eGFR (test code = mL/min/1.73m2 5225547121) ALYSSA (test code = ALYSSA) Association of [...] tests). Lab Interpretation Abnormal (test code = 01973-7) [facility] HospitalGlycosylated Hemoglobin (A1C)2021-10-31 09:13:40 Test Item Value Reference Range Interpretation Comments HGB A1C (test code = 6.8 % 4.0-5.7 H 4548-4) ALYSSA (test code = ALYSSA) Reference RangesNormal: <5.7%Prediabetes: 5.7 - 6.4%Diabetes: > 6.5% Lab Interpretation (test Abnormal code = 63626-5) [facility] [id number] 06:48:18 Test Item Value Reference Interpretation Comments Range TROPONIN I (test 0.082 ng/mL See_Comment H [Automated code = 3454771473) message] The system which generated this result [...] biotin. Lab Interpretation Abnormal (test code = 51589-3) [facility] [id number] 02:09:48 Test Item Value Reference Interpretation Comments Range TROPONIN I (test 0.067 ng/mL See_Comment H [Automated code = 4390863705) message] The system which generated this result [...] biotin. Lab Interpretation Abnormal (test code = 01547-1) [facility] HospitalN-TERMINAL [id number] 02:06:31 Test Item Value Reference Range Interpretation Comments NT-proBNP (test code 318 pg/mL See_Comment [Autom ated = 2053874841) message] The system which generated this result transmitted reference range : <=450. The reference range was not used to interpret this result as normal/abnormal . ALYSSA (test code = ALYSSA) Biotin has been reported to cause a negative bias, interpret results relative to patient's use of biotin. Lab Interpretation Normal (test code = 47704-2) [facility] (46986[facility]2021-10-31 01:58:28 Test Item Value Reference Range Interpretation Comments NA (test code = 137 mmol/L 135-145 6698538032) K (test code = 4.1 mmol/L 3.5-5.0 6839259604) CL (test code = 101 mmol/L 98-108 6743243177) CO2 TOTAL (test code = 26 mmol/L 23-31 4297076958) AGAP (test code = 2-16 8721646658) BUN (test code = 46 mg/dL 7-23 H 1452924459) GLUCOSE (test code = 213 mg/dL 70-110 H 6867747321) CREATININE (test code = 1.96 mg/dL 0.60-1.25 H 4537777013) TOTAL BILI (test code = 0.9 mg/dL 0.1-1.2 5926926584) CALCIUM (test code = 9.7 mg/dL 8.6-10.6 0798123700) T PROTEIN (test code = 7.0 g/dL 6.3-8.2 2201428563) ALBUMIN (test code = 4.3 g/dL 3.5-5.0 7220236934) ALK PHOS (test code = 58 U/L 34-122 6044468122) ALTv (test code = 20 U/L 5-50 1742-6) AST(SGOT) (test code = 27 U/L 13-40 0003596263) eGFR (test code = mL/min/1.73m2 5531356307) ALYSSA (test code = ALYSSA) Association of [...] tests). Lab Interpretation Abnormal (test code = 41960-0) [facility] HospitalLIPASE, [id number] 01:57:48 Test Item Value Reference Range Interpretation Comments LIPASE (test code = 4603122862) 330 U/L 0-220 H Lab Interpretation (test code = Abnormal 32772-3) [facility] HospitalaPTT2021-12-16 01:55:04 Test Item Value Reference Range Interpretation Comments APTT Patient (test See_Comment [Automat ed code = 3173-2) message] The system which generated this result transmitted reference range : 23 - 38 Seconds . The reference range was not used to interpr et this result as normal/abnormal . ALYSSA (test code = ALYSSA) The [facility] patient population mean normal value for aPTT is 30 seconds. Lab Interpretation Normal (test code = 33480-4) [facility] HospitalPROTHROMBIN TIME / [id number] 01:53:08 Test Item Value Reference Range Interpretation [...] tions. Lab Interpretation (test Normal code = 42417-3) [facility] HospitalCB WITH [id number] 01:45:44 Test Item Value Reference Range Interpretation Comments WBC (test code = See_Comment [Automated 6690-2) message] The sy stem which generated this result transmitted reference range : 4.20 - 10.70 10*3/?L. The reference range was not used to interpret this result as normal/abnormal . RBC (test code = See_Comment L [Automated 689-8) message] The sy stem which generated this [...] RDW-SD (test code = 39.1 fL 38.5-51.6 93438-6) RDW-CV (test code = 11.6 % 12.1-15.4 L 788-0) PLT (test code = See_Comment [Automated 777-3) message] The sy stem which generated this result transmitted reference range : 150 - 328 10*3/ ?L. The reference r corey was not used to interpret this result as normal/abnormal . MPV (test code = 10.4 fL 9.8-13.0 45038-1) NRBC/100 WBC (test See_Comment [Automat ed code = 5355063009) message] The system which generated this result transmitted reference range : 0.0 - 10.0 /100 WBCs. The refer ence range was not u sed to interpret th is result as normal/abnormal . NRBC x10^3 (test code <0.01 See_Comment [Auto mated = 5847702954) message] The s ystem which generated this result transmitted reference range : 10*3/?L. The reference range was not used to interpret this result as normal/abnormal . GRAN MAT (NEUT) % 62.1 % (test code = 770-8) IMM GRAN % (test code 0.30 % = 2210356807) LYMPH % (test code = 23.4 % 736-9) MONO % (test code = 10.8 % 5905-5) EOS % (test code = 2.9 % 713-8) BASO % (test code = 0.5 % 706-2) GRAN MAT x10^3(ANC) 4.14 10*3/uL 1.99-6.95 (test code = 2456087061) IMM GRAN x10^3 (test <0.03 0.00-0.06 code = 3495769221) LYMPH x10^3 (test code 1.56 10*3/uL 1.09-3.23 = 731-0) MONO x10^3 (test code 0.72 10*3/uL 0.36-1.02 = 742-7) EOS x10^3 (test code = 0.19 10*3/uL 0.06-0.53 711-2) BASO x10^3 (test code 0.03 10*3/uL 0.01-0.09 = 704-7) Lab Interpretation Abnormal (test code = 39768-5) [facility] HospitalURINALYSIS2021-06-10 21:15:48 Test Item Value Reference Range Interpretation Comments APPEARANCE (test code = Clear Clear 4311041323) COLOR (test code = Yellow Yellow 2932200159) PH (test code = 4.8-8.0 5870348528) SP GRAVITY (test code = 1.003-1.030 6117700250) GLU U QUAL (test code = 50 mg/dL Normal A 9629792402) BLOOD (test code = Negative Negative INTERFERE NCE FROM 7388635651) ASCORBIC ACID M AY CAUSE FALSE NEG ATIVE RESULT KETONES (test code = Negative Negative 5807833092) PROTEIN (test code = Negative Negative 2887-8) UROBILIN (test code = Normal Normal 3474574050) BILIRUBIN (test code = Negative Negative 0407634588) NITRITE (test code = Negative Negative 8587865006) LEUK JESS (test code = Negative Negative 3821188920) RBC/HPF (test code = See_Comment [Autom ated message] 0459640903) The system [employer] generated this result transmitted ref erence range: 0 - 3 HP F. The reference range was not used to int erpret this result as normal/abnormal . WBC/HPF (test code = See_Comment [Autom ated message] 9205550849) The system [employer] generated this result transmitted ref erence range: 0 - 5 HP F. The reference range was not used to int erpret this result as normal/abnormal . BACTERIA (test code = Negative Negative 9795589241) SQ EPITH (test code = <1 See_Comment [Auto mated message] 6284356667) The system [employer] generated this result transmitted ref erence range: <=2 HPF. The reference range was not used to int erpret this result as normal/abnormal . HYAL CAST (test code = See_Comment [Aut omated message] 0654285775) The system [employer] generated this result transmitted ref erence range: <=2 LPF. The reference range was not used to int erpret this result as normal/abnormal . Lab Interpretation (test Abnormal code = 26236-4) [facility] HospitalXR LUMBAR SPINE 2 [id number] 20:30:53 Impression: Postoperative changes. Degenerative changes. No [...] acute fracture or dislocation identified. Atherosclerotic calcifications. [facility], Radiant Results Inft User -04/25/2021 3:31 [...] abnormality identified.End of Report.RL: 3901 [facility] HospitalXR HIPS 2 VW [id number] 20:24:52Impression: Postoperative changes. Degenerative changes. No acute [...] clinicalconcern MRI is available.End of Report.RL: [facility]01 [facility] (NA, K, CL, CO2, GLUCOSE, BUN, CREATININE, CA)2020-05-24 14:15:00 Test Item Value Reference Range Interpretation Comments NA (test code = 139 mmol/L 135-145 0512571304) K (test code = 4.1 mmol/L 3.5-5 7691017851) CL (test code = 104 mmol/L 98-108 5902310326) CO2 TOTAL (test code = 26 mmol/L 23-31 5678923972) AGAP (test code = 2-16 3489189531) BUN (test code = 22 mg/dL 7-23 5586929329) GLUCOSE (test code = 203 mg/dL 70-110 H 2098275339) CREATININE (test code = 1.40 mg/dL 0.6-1.25 H 6151441593) CALCIUM (test code = 9.1 mg/dL 8.6-10.6 2873275922) eGFR Calculation mL/min/1.73m2 (Non-) (test code = 5037669113) eGFR Calculation mL/min/1.73m2 () (test code = 8484890519) ALYSSA (test code = ALYSSA) Association of [...] tests). Lab Interpretation Abnormal (test code = 43477-0) [facility] HospitalHepatic Function Panel (ALB, T.PRO, BILI T, BU/BC, ALT, AST, ALK PHOS)2020-05-24 13:54:00 Test Item Value Reference Range Interpretation Comments TOTAL BILI (test code = 7850203215) 0.9 mg/dL 0.1-1.1 BILI UNCON (test code = 4834121441) 1.0 mg/dL 0.1-1.1 BILI CONJ (test code = 1910425238) 0.0 mg/dL 0-0.3 T PROTEIN (test code = 6629423475) 7.0 g/dL 6.3-8.2 ALBUMIN (test code = 4803957518) 4.2 g/dL 3.5-5 ALK PHOS (test code = 1350960157) 49 U/L 34-122 ALTv (test code = 1742-6) 17 U/L 5-50 AST(SGOT) (test code = 7501918282) 25 U/L 13-40 Lab Interpretation (test code = Normal 45676-5) [facility] HospitalaPTT2020-07-09 13:32:00 Test Item Value Reference Range Interpretation Comments APTT Patient (test See_Comment [Automat ed code = 3173-2) message] The system which generated this result transmitted reference range : 23 - 38 Seconds . The reference range was not used to interpr et this result as normal/abnormal . ALYSSA (test code = ALYSSA) The [facility] patient population mean normal value for aPTT is 30 seconds. Lab Interpretation Normal (test code = 46794-2) [facility] HospitalProthrombin Time (PT) / [id number] 13:30:00 Test Item Value Reference Range Interpretation [...] tions. Lab Interpretation (test Normal code = 53715-4) [facility] HospitalCB WITH [id number] 13:27:00 Test Item Value Reference Range Interpretation Comments WBC (test code = See_Comment [Automated 3990-2) message] The sy stem which generated this result transmitted reference range : 4.20 - 10.70 10*3/?L. The reference range was not used to interpret this result as normal/abnormal . RBC (test code = See_Comment L [Automated 349-8) message] The sy stem which generated this [...] RDW-SD (test code = 42.6 fL 38.5-51.6 66851-9) RDW-CV (test code = 12.3 % 12.1-15.4 788-0) PLT (test code = See_Comment [Automated 777-3) message] The sy stem which generated this result transmitted reference range : 150 - 328 10*3/ ?L. The reference r corey was not used to interpret this result as normal/abnormal . MPV (test code = 9.9 fL 9.8-13 73850-2) NRBC/100 WBC (test See_Comment [Automat ed code = 6628190511) message] The system which generated this result transmitted reference range : 0.0 - 10.0 /100 WBCs. The refer ence range was not u sed to interpret th is result as normal/abnormal . NRBC x10^3 (test code <0.01 See_Comment [Auto mated = 1349213904) message] The s ystem which generated this result transmitted reference range : 10*3/?L. The reference range was not used to interpret this result as normal/abnormal . GRAN MAT (NEUT) % 55.1 % (test code = 770-8) IMM GRAN % (test code 0.20 % = 8620322349) LYMPH % (test code = 28.8 % 736-9) MONO % (test code = 11.3 % 5905-5) EOS % (test code = 3.5 % 713-8) BASO % (test code = 1.1 % 706-2) GRAN MAT x10^3(ANC) 3.11 10*3/uL 1.99-6.95 (test code = 2007659475) IMM GRAN x10^3 (test <0.03 0-0.06 code = 3458678317) LYMPH x10^3 (test code 1.63 10*3/uL 1.09-3.23 = 731-0) MONO x10^3 (test code 0.64 10*3/uL 0.36-1.02 = 742-7) EOS x10^3 (test code = 0.20 10*3/uL 0.06-0.53 711-2) BASO x10^3 (test code 0.06 10*3/uL 0.01-0.09 = 704-7) Lab Interpretation Abnormal (test code = 53974-6) [facility]+ VW [id number] 13:25:58HISTORY: ?Pain. FINDINGS: AP, lateral, oblique views [...] Interpretation Comments POCT GLU (test code = 1466925858) 173 mg/dL 70-110 H Lab Interpretation (test code = Abnormal 26176-0) [facility] GLUCOSE (AUTOMATED)2020-03-23 22:34:00 Test Item Value Reference Range Interpretation Comments POCT GLU (test code = 8331961995) 173 mg/dL 70-110 H Lab Interpretation (test code = Abnormal 74799-4) [facility] GLUCOSE (AUTOMATED)2020-03-23 18:12:00 Test Item Value Reference Range Interpretation Comments POCT GLU (test code = 165 mg/dL 70-110 H Notifi ed Provider [id number]) Lab Interpretation (test Abnormal code = 98212-8) [facility] GLUCOSE (AUTOMATED)2020-03-23 18:12:00 Test Item Value Reference Range Interpretation Comments POCT GLU (test code = 165 mg/dL 70-110 H Notifi ed Provider [id number]) Lab Interpretation (test Abnormal code = 36353-2) [facility] GLUCOSE (AUTOMATED)2020-03-23 15:04:00 Test Item Value Reference Range Interpretation Comments POCT GLU (test code = 114 mg/dL 70-110 H Notifi ed Provider [id number]) Lab Interpretation (test Abnormal code = 72044-3) [facility] GLUCOSE (AUTOMATED)2020-03-23 15:04:00 Test Item Value Reference Range Interpretation Comments POCT GLU (test code = 114 mg/dL 70-110 H Notifi ed Provider [id number]) Lab Interpretation (test Abnormal code = 93763-5) [facility] HospitalFERRITIN [id number] 13:23:00 Test Item Value Reference Range Interpretation Comments FERRITIN (test code = 139.0 ng/mL 18-464 8594710357) ALYSSA (test code = ALYSSA) Biotin has been reported to cause a negative bias, interpret results relative to patient's use of biotin. Lab Interpretation (test Normal code = 80179-7) [facility] HospitalFERRITIN [id number] 13:23:00 Test Item Value Reference Range Interpretation Comments FERRITIN (test code = 139.0 ng/mL 18-464 2041618958) ALYSSA (test code = ALYSSA) Biotin has been reported to cause a negative bias, interpret results relative to patient's use of biotin. Lab Interpretation (test Normal code = 34092-5) [facility] [id number] 12:53:00 Test Item Value Reference Range Interpretation Comments IRON (test code = 9222216205) 87 ug/dL 50-160 TIBC (test code = 9629785803) 385 ug/dL 250-410 % FE SAT (test code = 4928493932) 23 % 20-50 Lab Interpretation (test code = Normal 70909-1) [facility] [id number] 12:53:00 Test Item Value Reference Range Interpretation Comments IRON (test code = 0584856163) 87 ug/dL 50-160 TIBC (test code = 8282383684) 385 ug/dL 250-410 % FE SAT (test code = 7746424508) 23 % 20-50 Lab Interpretation (test code = Normal 93817-0) [facility] HospitalaPTT2020-[facility] 12:07:00 Test Item Value Reference Range Interpretation Comments APTT Patient (test code See_Comment [Au tomated message] = 3173-2) The system [employer] generated this result transmitted ref erence range: 26 - 36 Seconds. The reference range was not used to int erpret this result as normal/abnormal . Lab Interpretation (test Abnormal code = 02575-4) [facility] HospitalaPTT2020-[facility] 12:07:00 Test Item Value Reference Range Interpretation Comments APTT Patient (test code See_Comment [Au tomated message] = 3173-2) The system [employer] generated this result transmitted ref erence range: 26 - 36 Seconds. The reference range was not used to int erpret this result as normal/abnormal . Lab Interpretation (test Abnormal code = 85465-1) [facility] [id number] 11:57:00 Test Item Value Reference Range Interpretation Comments TROPONIN I (test 0.046 ng/mL See_Comment H [Automated code = 3028488593) message] The system which generated this result [...] ? Lab Interpretation Abnormal (test code = 15046-7) [facility] HospitalTROPONIN [id number] 11:57:00 Test Item Value Reference Range Interpretation Comments TROPONIN I (test 0.046 ng/mL See_Comment H [Automated code = 6723143655) message] The system which generated this result [...] ? Lab Interpretation Abnormal (test code = 77051-7) [facility] HospitalBASIC METABOLIC PANEL (NA, K, CL, CO2, GLUCOSE, BUN, CREATININE, CA)2020-03-23 11:52:00 Test Item Value Reference Range Interpretation Comments NA (test code = 137 mmol/L 135-145 4277791125) K (test code = 4.1 mmol/L 3.5-5 9972883064) CL (test code = 102 mmol/L 98-108 7751404946) CO2 TOTAL (test code = 26 mmol/L 23-31 0868810790) AGAP (test code = 2-16 5238698126) BUN (test code = 18 mg/dL 7-23 8730853576) GLUCOSE (test code = 119 mg/dL 70-110 H 4550348393) CREATININE (test code = 1.14 mg/dL 0.6-1.25 6337205069) CALCIUM (test code = 9.1 mg/dL 8.6-10.6 0779716995) eGFR Calculation mL/min/1.73m2 (Non-) (test code = 4281368648) eGFR Calculation mL/min/1.73m2 () (test code = 7038285505) ALYSSA (test code = ALYSSA) Association of [...] tests). Lab Interpretation Abnormal (test code = 60678-7) [facility] HospitalMAGNESIUM2020-05-08 11:52:00 Test Item Value Reference Range Interpretation Comments MAGNESIUM (test code = 4752722395) 2.2 mg/dL 1.7-2.4 Lab Interpretation (test code = Normal 40299-1) [facility] (NA, K, CL, CO2, GLUCOSE, BUN, CREATININE, CA)2020-03-23 11:52:00 Test Item Value Reference Range Interpretation Comments NA (test code = 137 mmol/L 135-145 9148591024) K (test code = 4.1 mmol/L 3.5-5 0114516016) CL (test code = 102 mmol/L 98-108 7654870795) CO2 TOTAL (test code = 26 mmol/L 23-31 7489202326) AGAP (test code = 2-16 5393620237) BUN (test code = 18 mg/dL 7-23 8038500015) GLUCOSE (test code = 119 mg/dL 70-110 H 8026835148) CREATININE (test code = 1.14 mg/dL 0.6-1.25 2295959237) CALCIUM (test code = 9.1 mg/dL 8.6-10.6 1692259394) eGFR Calculation mL/min/1.73m2 (Non-) (test code = 0664476547) eGFR Calculation mL/min/1.73m2 () (test code = 5808441158) ALYSSA (test code = ALYSSA) Association of [...] tests). Lab Interpretation Abnormal (test code = 68813-4) [facility] HospitalMAGNESIUM2020-05-08 11:52:00 Test Item Value Reference Range Interpretation Comments MAGNESIUM (test code = 0618330846) 2.2 mg/dL 1.7-2.4 Lab Interpretation (test code = Normal 26887-3) [facility] HospitalProthrombin Time (PT) / [id number] 11:36:00 Test Item Value Reference Range Interpretation Comments PROTIME PATIENT (test See_Comment [Auto mated message] code = 5964-2) The system [employer] generated this result transmitted ref erence range: 10.1 - 1 2.6 Seconds. The re ference range was not u sed to interpret this result as normal/abnor mal. INR (test code = 6301-6) Nor mal INR <1.1; Warfarin Therap eutic range 2.0 to 3. 0 or 2.5 to 3.5, dep ending upon the indica tions. Lab Interpretation (test Normal code = 59060-6) [facility] HospitalProthrombin Time (PT) / [id number] 11:36:00 Test Item Value Reference Range Interpretation Comments PROTIME PATIENT (test See_Comment [Auto mated message] code = 5964-2) The system [employer] generated this result transmitted ref erence range: 10.1 - 1 2.6 Seconds. The re ference range was not u sed to interpret this result as normal/abnor mal. INR (test code = 6301-6) Nor mal INR <1.1; Warfarin Therap eutic range 2.0 to 3. 0 or 2.5 to 3.5, dep ending upon the indica tions. Lab Interpretation (test Normal code = 02523-4) [facility] HospitalTROPONIN [id number] 06:38:00 Test Item Value Reference Range Interpretation Comments TROPONIN I (test 0.045 ng/mL See_Comment H [Automated code = 8197756203) message] The system which generated this result [...] ? Lab Interpretation Abnormal (test code = 27096-5) [facility] HospitalKARINCOL[facility]ARECHRISTOP[facility] [id number] 06:38:00 Test Item Value Reference Range Interpretation Comments TROPONIN I (test 0.045 ng/mL See_Comment H [Automated code = 4004285614) message] The system which generated this result [...] ? Lab Interpretation Abnormal (test code = 97215-5) [facility] METABOLIC PANEL (NA, K, CL, CO2, GLUCOSE, BUN, CREATININE, CA)2020-03-23 06:29:00 Test Item Value Reference Range Interpretation Comments NA (test code = 137 mmol/L 135-145 7664332734) K (test code = 3.6 mmol/L 3.5-5 7283368796) CL (test code = 101 mmol/L 98-108 7828680358) CO2 TOTAL (test code = 27 mmol/L 23-31 1422528116) AGAP (test code = 2-16 9195904323) BUN (test code = 19 mg/dL 7-23 2839233275) GLUCOSE (test code = 153 mg/dL 70-110 H 7756083759) CREATININE (test code = 1.22 mg/dL 0.6-1.25 6389606335) CALCIUM (test code = 8.9 mg/dL 8.6-10.6 9057491988) eGFR Calculation mL/min/1.73m2 (Non-) (test code = 6249870259) eGFR Calculation mL/min/1.73m2 () (test code = 8970151396) ALYSSA (test code = ALYSSA) Association of [...] tests). Lab Interpretation Abnormal (test code = 85194-1) [facility] HospitalMAGNESIUM2020-05-08 06:29:00 Test Item Value Reference Range Interpretation Comments MAGNESIUM (test code = 8976526922) 1.7 mg/dL 1.7-2.4 Lab Interpretation (test code = Normal 51924-4) [facility] HospitalLIPID PANEL (74522)(TOTAL CHOLESTEROL, TRIGLYCERIDES, HDL)2020-03-23 06:29:00 Test Item Value Reference Range Interpretation Comments CHOL (test code = 106 mg/dL 120-200 L 7274884264) HDL (test code = 46 mg/dL >40 1921748323) HDLC RATIO (test code = See_Comment [Au tomated message] 4701098927) The system [employer] generated this result transmit diamante reference range : <=5.0. The refe rence range was not u sed to interpret th is result as normal/abnormal . TRIG (test code = 74 mg/dL 30-170 1171791991) LDL CHOL (test code = 45 mg/dL See_Comment [Auto mated message] 55280-1) The system [employer] generated this result transmit diamante reference range : <=160. The refe rence range was not u sed to interpret th is result as normal/abnormal . VLDL (test code = 15 mg/dL 5-60 7785115308) Lab Interpretation (test Abnormal code = 06247-2) [facility] (NA, K, CL, CO2, GLUCOSE, BUN, CREATININE, CA)2020-03-23 06:29:00 Test Item Value Reference Range Interpretation Comments NA (test code = 137 mmol/L 135-145 1978644017) K (test code = 3.6 mmol/L 3.5-5 4681636504) CL (test code = 101 mmol/L 98-108 7131105286) CO2 TOTAL (test code = 27 mmol/L 23-31 8123273016) AGAP (test code = 2-16 9567761354) BUN (test code = 19 mg/dL 7-23 0815118950) GLUCOSE (test code = 153 mg/dL 70-110 H 9844079054) CREATININE (test code = 1.22 mg/dL 0.6-1.25 3046426274) CALCIUM (test code = 8.9 mg/dL 8.6-10.6 3732821854) eGFR Calculation mL/min/1.73m2 (Non-) (test code = 8094795425) eGFR Calculation mL/min/1.73m2 () (test code = 7355597344) ALYSSA (test code = ALYSSA) Association of [...] tests). Lab Interpretation Abnormal (test code = 33576-9) [facility]MAGNESIUM2020-05-08 06:29:00 Test Item Value Reference Range Interpretation Comments MAGNESIUM (test code = 7239941268) 1.7 mg/dL 1.7-2.4 Lab Interpretation (test code = Normal 11634-5) [facility] HospitalLIPID PANEL (67500)(TOTAL CHOLESTEROL, TRIGLYCERIDES, HDL)2020-03-23 06:29:00 Test Item Value Reference Range Interpretation Comments CHOL (test code = 106 mg/dL 120-200 L 5481255211) HDL (test code = 46 mg/dL >40 6933011202) HDLC RATIO (test code = See_Comment [Au tomated message] 3200786138) The system [employer] generated this result transmit diamante reference range : <=5.0. The refe rence range was not u sed to interpret th is result as normal/abnormal . TRIG (test code = 74 mg/dL 30-170 3192231040) LDL CHOL (test code = 45 mg/dL See_Comment [Auto mated message] 46391-5) The system [employer] generated this result transmit diamante reference range : <=160. The refe rence range was not u sed to interpret th is result as normal/abnormal . VLDL (test code = 15 mg/dL 5-60 9390501823) Lab Interpretation (test Abnormal code = 36986-3) [facility] HospitalaPTT2020-05-08 03:18:00 Test Item Value Reference Range Interpretation Comments APTT Patient (test code = See_Comment [ Automated message] 3173-2) The system [employer] generated this result transmitted ref erence range: 26 - 36 Seconds. The re ference range was not u sed to interpret this result as normal/abnor mal. Lab Interpretation (test Normal code = 71276-0) [facility] HospitalaPTT2020-05-08 03:18:00 Test Item Value Reference Range Interpretation Comments APTT Patient (test code = See_Comment [ Automated message] 3173-2) The system [employer] generated this result transmitted ref erence range: 26 - 36 Seconds. The re ference range was not u sed to interpret this result as normal/abnor mal. Lab Interpretation (test Normal code = 99668-4) [facility] HospitalPROTHROMBIN TIME / [id number] 03:07:00 Test Item Value Reference Range Interpretation Comments PROTIME PATIENT (test See_Comment [Auto mated message] code = 5964-2) The system [employer] generated this result transmitted ref erence range: 10.1 - 1 2.6 Seconds. The re ference range was not u sed to interpret this result as normal/abnor mal. INR (test code = 6301-6) Nor mal INR <1.1; Warfarin Therap eutic range 2.0 to 3. 0 or 2.5 to 3.5, dep ending upon the indica tions. Lab Interpretation (test Normal code = 94976-7) [facility] HospitalPROTHROMBIN TIME / [id number] 03:07:00 Test Item Value Reference Range Interpretation Comments PROTIME PATIENT (test See_Comment [Auto mated message] code = 5964-2) The system [employer] generated this result transmitted ref erence range: 10.1 - 1 2.6 Seconds. The re ference range was not u sed to interpret this result as normal/abnor mal. INR (test code = 6301-6) Nor mal INR <1.1; Warfarin Therap eutic range 2.0 to 3. 0 or 2.5 to 3.5, dep ending upon the indica tions. Lab Interpretation (test Normal code = 29970-3) [facility]ST 2 [id number] 02:23:32 No acute cardiopulmonary process. Preliminary Report [...] study and agree with the abovereport.[facility]ST 2 [id number] 02:23:32 No acute cardiopulmonary process. Preliminary Report [...] is seen. Noacute bony abnormalities are noted. [facility], Radiant Results Inft User - 03/22/2020 [...] study and agree with the abovereport.[facility] HospitalCORONAVIRUS COVID-19 [id number] 01:23:00 Test Item Value Reference Range Interpretation Comments SARS-CoV-2 (test code = Not Detected Not Detected 28636-6) ALYSSA (test code = ALYSSA) ID NOW COVID-19 Assay is an isothermal nucleic acid amplification test intended for the qualitative detection of nucleic acid from SARS-CoV-2 viral RNA in nasopharyngeal (ICE GUARD INSPECTOR) specimens. It is used under Emergency Use [...] indicated. Lab Interpretation Normal (test code = 26964-6) [facility] HospitalCORONAVIRUS COVID-19 [id number] 01:23:00 Test Item Value Reference Range Interpretation Comments SARS-CoV-2 (test code = Not Detected Not Detected 92006-4) ALYSSA (test code = ALYSSA) ID NOW COVID-19 Assay is an isothermal nucleic acid amplification test intended for the qualitative detection of nucleic acid from SARS-CoV-2 viral RNA in nasopharyngeal (ICE GUARD INSPECTOR) specimens. It is used under Emergency Use [...] indicated. Lab Interpretation Normal (test code = 67985-2) [facility] HospitalN-TERMINAL [id number] 00:12:00 Test Item Value Reference Range Interpretation Comments NT-proBNP (test code 585 pg/mL See_Comment H [Autom ated = 7262110159) message] The system which generated this result transmitted reference range : <=450. The reference range was not used to interpret this result as normal/abnormal . ALYSSA (test code = ALYSSA) Biotin has been reported to cause a negative bias, interpret results relative to patient's use of biotin. Lab Interpretation Abnormal (test code = 15718-9) [facility] [id number] 00:12:00 Test Item Value Reference Range Interpretation Comments TROPONIN I (test 0.030 ng/mL See_Comment [Automated code = 5089414019) message] The system which generated this result [...] ? Lab Interpretation Normal (test code = 55259-8) [facility] HospitalN-TERMINAL [id number] 00:12:00 Test Item Value Reference Range Interpretation Comments NT-proBNP (test code 585 pg/mL See_Comment H [Autom ated = 1704616077) message] The system which generated this result transmitted reference range : <=450. The reference range was not used to interpret this result as normal/abnormal . ALYSSA (test code = ALYSSA) Biotin has been reported to cause a negative bias, interpret results relative to patient's use of biotin. Lab Interpretation Abnormal (test code = 32530-0) [facility] [id number] 00:12:00 Test Item Value Reference Range Interpretation Comments TROPONIN I (test 0.030 ng/mL See_Comment [Automated code = 0214794291) message] The system which generated this result [...] ? Lab Interpretation Normal (test code = 30804-1) [facility]. METABOLIC PANEL (27374)2020-03-23 00:03:00 Test Item Value Reference Range Interpretation Comments NA (test code = 138 mmol/L 135-145 2192787821) K (test code = 4.1 mmol/L 3.5-5 4118043645) CL (test code = 103 mmol/L 98-108 4778798742) CO2 TOTAL (test code = 26 mmol/L 23-31 0145716668) AGAP (test code = 2-16 0416667128) BUN (test code = 18 mg/dL 7-23 1954238609) GLUCOSE (test code = 157 mg/dL 70-110 H 8332561007) CREATININE (test code = 1.19 mg/dL 0.6-1.25 4747406303) TOTAL BILI (test code = 1.1 mg/dL 0.1-1.5 8669002175) CALCIUM (test code = 9.2 mg/dL 8.6-10.6 1714376882) T PROTEIN (test code = 6.8 g/dL 6.3-8.2 1536875434) ALBUMIN (test code = 4.0 g/dL 3.5-5 9380139759) ALK PHOS (test code = 51 U/L 34-122 5859536899) ALTv (test code = 16 U/L 5-50 1742-6) AST(SGOT) (test code = 23 U/L 13-40 5311122602) eGFR Calculation mL/min/1.73m2 (Non-) (test code = 0011658078) eGFR Calculation mL/min/1.73m2 () (test code = 8101369044) ALYSSA (test code = ALYSSA) Association of [...] tests). Lab Interpretation Abnormal (test code = 42195-3) [facility] METABOLIC PANEL (55847)2020-03-23 00:03:00 Test Item Value Reference Range Interpretation Comments NA (test code = 138 mmol/L 135-145 9849983872) K (test code = 4.1 mmol/L 3.5-5 4635222434) CL (test code = 103 mmol/L 98-108 7788029291) CO2 TOTAL (test code = 26 mmol/L 23-31 9503914407) AGAP (test code = 2-16 3170960157) BUN (test code = 18 mg/dL 7-23 7293399836) GLUCOSE (test code = 157 mg/dL 70-110 H 7589154679) CREATININE (test code = 1.19 mg/dL 0.6-1.25 9247212153) TOTAL BILI (test code = 1.1 mg/dL 0.1-1.9 3778732388) CALCIUM (test code = 9.2 mg/dL 8.6-10.6 6191785998) T PROTEIN (test code = 6.8 g/dL 6.3-8.2 3131984679) ALBUMIN (test code = 4.0 g/dL 3.5-5 9214293470) ALK PHOS (test code = 51 U/L 34-122 1952775866) ALTv (test code = 16 U/L 5-50 1742-6) AST(SGOT) (test code = 23 U/L 13-40 5190693414) eGFR Calculation mL/min/1.73m2 (Non-) (test code = 4669682004) eGFR Calculation mL/min/1.73m2 () (test code = 2564422014) ALYSSA (test code = ALYSSA) Association of [...] tests). Lab Interpretation Abnormal (test code = 29276-5) [facility] WITH [id number] 23:57:00 Test Item Value Reference Range Interpretation Comments WBC (test code = See_Comment [Automated 1290-2) message] The sy stem which generated this [...] RDW-SD (test code = 49.6 fL 38.5-51.6 40638-1) RDW-CV (test code = 14.6 % 12.1-15.4 788-0) PLT (test code = See_Comment L [Automated 777-3) message] The sy stem which generated this result transmitted reference range : 150 - 328 10*3/ ?L. The reference r corey was not used to interpret this result as normal/abnormal . MPV (test code = 9.9 fL 9.8-13 72126-8) NRBC/100 WBC (test See_Comment [Automat ed code = 0013179873) message] The system which generated this result transmitted reference range : 0.0 - 10.0 /100 WBCs. The refer ence range was not u sed to interpret th is result as normal/abnormal . NRBC x10^3 (test code <0.01 See_Comment [Auto mated = 1943011369) message] The s ystem which generated this result transmitted reference range : 10*3/?L. The reference range was not used to interpret this result as normal/abnormal . GRAN MAT (NEUT) % 55.3 % (test code = 770-8) IMM GRAN % (test code 0.20 % = 3602959951) LYMPH % (test code = 28.3 % 736-9) MONO % (test code = 12.6 % 5905-5) EOS % (test code = 3.1 % 713-8) BASO % (test code = 0.5 % 706-2) GRAN MAT x10^3(ANC) 3.20 10*3/uL 1.99-6.95 (test code = 3784169108) IMM GRAN x10^3 (test <0.03 0-0.06 code = 6549699198) LYMPH x10^3 (test code 1.64 10*3/uL 1.09-3.23 = 731-0) MONO x10^3 (test code 0.73 10*3/uL 0.36-1.02 = 742-7) EOS x10^3 (test code = 0.18 10*3/uL 0.06-0.53 711-2) BASO x10^3 (test code 0.03 10*3/uL 0.01-0.09 = 704-7) Lab Interpretation Abnormal (test code = 02669-6) [facility] WITH [id number] 23:57:00 Test Item Value Reference Range Interpretation [...] RDW-SD (test code = 49.6 fL 38.5-51.6 71695-6) RDW-CV (test code = 14.6 % 12.1-15.4 788-0) PLT (test code = See_Comment L [Automated 777-3) message] The sy stem which generated this result transmitted reference range : 150 - 328 10*3/ ?L. The reference r corey was not used to interpret this result as normal/abnormal . MPV (test code = 9.9 fL 9.8-13 99421-6) NRBC/100 WBC (test See_Comment [Automat ed code = 2715252402) message] The system which generated this result transmitted reference range : 0.0 - 10.0 /100 WBCs. The refer ence range was not u sed to interpret th is result as normal/abnormal . NRBC x10^3 (test code <0.01 See_Comment [Auto mated = 6147540065) message] The s ystem which generated this result transmitted reference range : 10*3/?L. The reference range was not used to interpret this result as normal/abnormal . GRAN MAT (NEUT) % 55.3 % (test code = 770-8) IMM GRAN % (test code 0.20 % = 1267220715) LYMPH % (test code = 28.3 % 736-9) MONO % (test code = 12.6 % 5905-5) EOS % (test code = 3.1 % 713-8) BASO % (test code = 0.5 % 706-2) GRAN MAT x10^3(ANC) 3.20 10*3/uL 1.99-6.95 (test code = 8523156569) IMM GRAN x10^3 (test <0.03 0-0.06 code = 3925580199) LYMPH x10^3 (test code 1.64 10*3/uL 1.09-3.23 = 731-0) MONO x10^3 (test code 0.73 10*3/uL 0.36-1.02 = 742-7) EOS x10^3 (test code = 0.18 10*3/uL 0.06-0.53 711-2) BASO x10^3 (test code 0.03 10*3/uL 0.01-0.09 = 704-7) Lab Interpretation Abnormal (test code = 08793-9) [facility] HospitalCORON[facility]IRUS COVID-19 [id number] 21:48:00 Test Item Value Reference Range Interpretation Comments SARS-CoV-2 (test code = Not Detected Not Detected 30006-5) ALYSSA (test code = ALYSSA) ID NOW COVID-19 Assay is an isothermal nucleic acid amplification test intended for the qualitative detection of nucleic acid from SARS-CoV-2 viral RNA in nasopharyngeal (ICE GUARD INSPECTOR) specimens. It is used under Emergency Use [...] indicated. Lab Interpretation Normal (test code = 63567-1) [facility] HospitalTroponin [id number] 21:44:00 Test Item Value Reference Range Interpretation Comments TROPONIN I (test 0.027 ng/mL See_Comment [Automated code = 0635218114) message] The system which generated this result [...] ? Lab Interpretation Normal (test code = 74918-5) [facility] HospitalProthrombin Time (PT) / [id number] 21:41:00 Test Item Value Reference Range Interpretation [...] tions. Lab Interpretation (test Normal code = 40898-6) [facility] HospitalN-TERMINAL [id number] 21:39:00 Test Item Value Reference Range Interpretation Comments NT-proBNP (test code 663 pg/mL See_Comment H [Autom ated = 0390386084) message] The system which generated this result transmitted reference range : <=450. The reference range was not used to interpret this result as normal/abnormal . ALYSSA (test code = ALYSSA) Biotin has been reported to cause a negative bias, interpret results relative to patient's use of biotin. Lab Interpretation Abnormal (test code = 81181-5) [facility]. METABOLIC PANEL (26537)2020-03-21 21:37:00 Test Item Value Reference Range Interpretation Comments NA (test code = 139 mmol/L 135-145 3808064239) K (test code = 4.1 mmol/L 3.5-5 6810395424) CL (test code = 102 mmol/L 98-108 1429041119) CO2 TOTAL (test code = 29 mmol/L 23-31 3067361469) AGAP (test code = 2-16 3425196458) BUN (test code = 18 mg/dL 7-23 8899533050) GLUCOSE (test code = 277 mg/dL 70-110 H 0365702603) CREATININE (test code = 1.23 mg/dL 0.6-1.25 8526983645) TOTAL BILI (test code = 1.3 mg/dL 0.1-1.1 H 4802997263) CALCIUM (test code = 9.8 mg/dL 8.6-10.6 1798155431) T PROTEIN (test code = 7.0 g/dL 6.3-8.2 6508273797) ALBUMIN (test code = 4.2 g/dL 3.5-5 4445698699) ALK PHOS (test code = 50 U/L 34-122 5297370159) ALTv (test code = 15 U/L 5-50 1742-6) AST(SGOT) (test code = 22 U/L 13-40 2404561187) eGFR Calculation mL/min/1.73m2 (Non-) (test code = 6321991522) eGFR Calculation mL/min/1.73m2 () (test code = 6875681277) ALYSSA (test code = ALYSSA) Association of [...] tests). Lab Interpretation Abnormal (test code = 99056-1) [facility] HospitalLipase [id number] 21:37:00 Test Item Value Reference Range Interpretation Comments LIPASE (test code = 0201560068) 161 U/L 0-220 Lab Interpretation (test code = Normal 73145-7) [facility] HospitalChes 1 [id number] 20:46:31HISTORY: Chest pain. TECHNIQUE: Portable AP view of the chest is obtained. Comparison made with03/04/2020 study. FINDINGS: No acute pneumonia. No pneumothorax or pleural effusion orpulmonary congestion detected. Mild cardiomegaly and intrathecal electrodesin lower thoracic spinal canal noted. Mild thoracolumbar scoliosis noted. CONCLUSIONS: Mild cardiomegaly.[facility], Radiant Results Inft User - 03/21/2020 3:47 PM CDTHISTORY: Chest pain.TECHNIQUE: Portable AP view of the chest is obtained. Comparison made with03/04/2020 study.FINDINGS: No acute pneumonia. No pneumothorax or pleural effusion orpulmonary congestion detected. Mild cardiomegaly and intrathecal electrodesin lower thoracic spinal canal noted. Mild thoracolumbar scoliosis noted.CONCLUSIONS: Mild cardiomegaly. [facility] HospitalLariic Acid Whole [id number] 20:43:00 Test Item Value Reference Range Interpretation Comments LACTIC ACID (test code = 1.91 mmol/L 0.3-2.6 8564968791) [facility] GLUCOSE (AUTOMATED)2020-03-07 20:58:00 Test Item Value Reference Range Interpretation Comments POCT GLU (test code = 4749813481) 216 mg/dL 70-110 H Lab Interpretation (test code = Abnormal 26324-3) [facility] GLUCOSE (AUTOMATED)2020-03-07 16:00:00 Test Item Value Reference Range Interpretation Comments POCT GLU (test code = 0565161023) 168 mg/dL 70-110 H Lab Interpretation (test code = Abnormal 09347-7) [facility] GLUCOSE (AUTOMATED)2020-03-07 13:07:00 Test Item Value Reference Range Interpretation Comments POCT GLU (test code = 9983304241) 148 mg/dL 70-110 H Lab Interpretation (test code = Abnormal 69532-4) [facility] HospitalTROPONIN [id number] 11:27:00 Test Item Value Reference Range Interpretation Comments TROPONIN I (test 0.051 ng/mL See_Comment H [Automated code = 1528860273) message] The system which generated this result [...] ? Lab Interpretation Abnormal (test code = 85230-8) [facility] HospitalN-TERMINAL [id number] 11:24:00 Test Item Value Reference Range Interpretation Comments NT-proBNP (test code 336 pg/mL See_Comment [Autom ated = 2160907077) message] The system which generated this result transmitted reference range : <=450. The reference range was not used to interpret this result as normal/abnormal . ALYSSA (test code = ALYSSA) Biotin has been reported to cause a negative bias, interpret results relative to patient's use of biotin. Lab Interpretation Normal (test code = 34646-7) [facility] (NA, K, CL, CO2, GLUCOSE, BUN, CREATININE, CA)2020-03-07 11:14:00 Test Item Value Reference Range Interpretation Comments NA (test code = 138 mmol/L 135-145 5104390607) K (test code = 3.8 mmol/L 3.5-5 5721199047) CL (test code = 97 mmol/L 98-108 L 0702628181) CO2 TOTAL (test code = 30 mmol/L 23-31 0931818403) AGAP (test code = 2-16 5194079438) BUN (test code = 36 mg/dL 7-23 H 9590441736) GLUCOSE (test code = 140 mg/dL 70-110 H 1207534215) CREATININE (test code = 1.50 mg/dL 0.6-1.25 H 4438058107) CALCIUM (test code = 10.0 mg/dL 8.6-10.6 8215916887) eGFR Calculation mL/min/1.73m2 (Non-) (test code = 0065826348) eGFR Calculation mL/min/1.73m2 () (test code = 0686596926) ALYSSA (test code = ALYSSA) Association of [...] tests). Lab Interpretation Abnormal (test code = 84400-8) [facility] HospitalURIC [id number] 11:14:00 Test Item Value Reference Range Interpretation Comments URIC ACID (test code = 6873876039) 5.4 mg/dL 3.6-8 Lab Interpretation (test code = Normal 33548-1) [facility] HospitalCB WITH [id number] 10:53:00 Test Item Value Reference Range Interpretation Comments WBC (test code = See_Comment [Automated 5567-2) message] The sy stem which generated this result transmitted reference range : 4.20 - 10.70 10*3/?L. The reference range was not used to interpret this result as normal/abnormal . RBC (test code = See_Comment L [Automated 528-2) message] The sy stem which generated this [...] RDW-SD (test code = 45.1 fL 38.5-51.6 78658-7) RDW-CV (test code = 14.2 % 12.1-15.4 788-0) PLT (test code = See_Comment [Automated 777-3) message] The sy stem which generated this result transmitted reference range : 150 - 328 10*3/ ?L. The reference r corey was not used to interpret this result as normal/abnormal . MPV (test code = 9.8 fL 9.8-13 71613-9) NRBC/100 WBC (test See_Comment [Automat ed code = 6458788532) message] The system which generated this result transmitted reference range : 0.0 - 10.0 /100 WBCs. The refer ence range was not u sed to interpret th is result as normal/abnormal . NRBC x10^3 (test code <0.01 See_Comment [Auto mated = 6162875750) message] The s ystem which generated this result transmitted reference range : 10*3/?L. The reference range was not used to interpret this result as normal/abnormal . GRAN MAT (NEUT) % 51.0 % (test code = 770-8) IMM GRAN % (test code 0.50 % = 7416330487) LYMPH % (test code = 32.0 % 736-9) MONO % (test code = 11.3 % 5905-5) EOS % (test code = 4.3 % 713-8) BASO % (test code = 0.9 % 706-2) GRAN MAT x10^3(ANC) 2.85 10*3/uL 1.99-6.95 (test code = 7690982730) IMM GRAN x10^3 (test 0.03 10*3/uL 0-0.06 code = 7240019314) LYMPH x10^3 (test code 1.79 10*3/uL 1.09-3.23 = 731-0) MONO x10^3 (test code 0.63 10*3/uL 0.36-1.02 = 742-7) EOS x10^3 (test code = 0.24 10*3/uL 0.06-0.53 711-2) BASO x10^3 (test code 0.05 10*3/uL 0.01-0.09 = 704-7) Lab Interpretation Abnormal (test code = 11303-4) [facility] GLUCOSE (AUTOMATED)2020-03-06 22:46:00 Test Item Value Reference Range Interpretation Comments POCT GLU (test code = 0404565553) 209 mg/dL 70-110 H Lab Interpretation (test code = Abnormal 93184-1) [facility] GLUCOSE (AUTOMATED)2020-03-06 16:23:00 Test Item Value Reference Range Interpretation Comments POCT GLU (test code = 5753974998) 254 mg/dL 70-110 H Lab Interpretation (test code = Abnormal 89323-5) [facility] GLUCOSE (AUTOMATED)2020-03-06 12:51:00 Test Item Value Reference Range Interpretation Comments POCT GLU (test code = 8757549232) 126 mg/dL 70-110 H Lab Interpretation (test code = Abnormal 03822-5) [facility] HospitalTROPONIN [id number] 10:16:00 Test Item Value Reference Range Interpretation Comments TROPONIN I (test 0.056 ng/mL See_Comment H [Automated code = 7389202387) message] The system which generated this result [...] ? Lab Interpretation Abnormal (test code = 19946-2) [facility] (NA, K, CL, CO2, GLUCOSE, BUN, CREATININE, CA)2020-03-06 10:13:00 Test Item Value Reference Range Interpretation Comments NA (test code = 136 mmol/L 135-145 7959452090) K (test code = 4.1 mmol/L 3.5-5 9596432124) CL (test code = 95 mmol/L 98-108 L 7920108338) CO2 TOTAL (test code = 30 mmol/L 23-31 5898120809) AGAP (test code = 2-16 0350219778) BUN (test code = 35 mg/dL 7-23 H 5447770797) GLUCOSE (test code = 174 mg/dL 70-110 H 1399857248) CREATININE (test code = 1.67 mg/dL 0.6-1.25 H 4769126741) CALCIUM (test code = 9.7 mg/dL 8.6-10.6 6072554249) eGFR Calculation mL/min/1.73m2 (Non-) (test code = 0367174699) eGFR Calculation mL/min/1.73m2 () (test code = 3196499563) ALYSSA (test code = ALYSSA) Association of [...] tests). Lab Interpretation Abnormal (test code = 91803-8) [facility] WITH [id number] 09:16:00 Test Item Value Reference Range Interpretation Comments WBC (test code = See_Comment [Automated 6690-2) message] The sy stem which generated this result transmitted reference range : 4.20 - 10.70 10*3/?L. The reference range was not used to interpret this result as normal/abnormal . RBC (test code = See_Comment L [Automated 869-8) message] The sy stem which generated this [...] RDW-SD (test code = 45.6 fL 38.5-51.6 62122-7) RDW-CV (test code = 14.3 % 12.1-15.4 788-0) PLT (test code = See_Comment [Automated 777-3) message] The sy stem which generated this result transmitted reference range : 150 - 328 10*3/ ?L. The reference r corey was not used to interpret this result as normal/abnormal . MPV (test code = 9.8 fL 9.8-13 50939-0) NRBC/100 WBC (test See_Comment [Automat ed code = 6057100912) message] The system which generated this result transmitted reference range : 0.0 - 10.0 /100 WBCs. The refer ence range was not u sed to interpret th is result as normal/abnormal . NRBC x10^3 (test code <0.01 See_Comment [Auto mated = 1373402744) message] The s ystem which generated this result transmitted reference range : 10*3/?L. The reference range was not used to interpret this result as normal/abnormal . GRAN MAT (NEUT) % 56.1 % (test code = 770-8) IMM GRAN % (test code 0.10 % = 5318106663) LYMPH % (test code = 29.7 % 736-9) MONO % (test code = 9.6 % 5905-5) EOS % (test code = 3.8 % 713-8) BASO % (test code = 0.7 % 706-2) GRAN MAT x10^3(ANC) 3.79 10*3/uL 1.99-6.95 (test code = 2563896197) IMM GRAN x10^3 (test <0.03 0-0.06 code = 4039793606) LYMPH x10^3 (test code 2.01 10*3/uL 1.09-3.23 = 731-0) MONO x10^3 (test code 0.65 10*3/uL 0.36-1.02 = 742-7) EOS x10^3 (test code = 0.26 10*3/uL 0.06-0.53 711-2) BASO x10^3 (test code 0.05 10*3/uL 0.01-0.09 = 704-7) Lab Interpretation Abnormal (test code = 90034-0) [facility] GLUCOSE (AUTOMATED)2020-03-06 01:25:00 Test Item Value Reference Range Interpretation Comments POCT GLU (test code = 4941829482) 208 mg/dL 70-110 H Lab Interpretation (test code = Abnormal 58719-8) [facility] HospitalGUERONIN [id number] 00:08:00 Test Item Value Reference Range Interpretation Comments TROPONIN I (test 0.047 ng/mL See_Comment H [Automated code = 4238085673) message] The system which generated this result [...] ? Lab Interpretation Abnormal (test code = 78708-3) [facility] GLUCOSE (AUTOMATED)2020-03-05 21:19:00 Test Item Value Reference Range Interpretation Comments POCT GLU (test code = 3291300790) 234 mg/dL 70-110 H Lab Interpretation (test code = Abnormal 37675-0) [facility] GLUCOSE (AUTOMATED)2020-03-05 16:55:00 Test Item Value Reference Range Interpretation Comments POCT GLU (test code = 5927595008) 258 mg/dL 70-110 H Lab Interpretation (test code = Abnormal 71623-0) [facility] HospitalPOCT GLUCOSE (AUTOMATED)2020-03-05 12:59:00 Test Item Value Reference Range Interpretation Comments POCT GLU (test code = 8637078923) 194 mg/dL 70-110 H Lab Interpretation (test code = Abnormal 50620-0) [facility] HospitalTROPONIN [id number] 10:54:00 Test Item Value Reference Range Interpretation Comments TROPONIN I (test 0.071 ng/mL See_Comment H [Automated code = 2577686511) message] The system which generated this result [...] ? Lab Interpretation Abnormal (test code = 59295-1) [facility] HospitalBasic Metabolic Panel (NA, K, CL, CO2, GLUCOSE, BUN, CREATININE, CA)2020-03-05 10:43:00 Test Item Value Reference Range Interpretation Comments NA (test code = 139 mmol/L 135-145 2197262102) K (test code = 4.1 mmol/L 3.5-5 5914129166) CL (test code = 101 mmol/L 98-108 7321430401) CO2 TOTAL (test code = 27 mmol/L 23-31 4041159884) AGAP (test code = 2-16 6767487550) BUN (test code = 25 mg/dL 7-23 H 5448197651) GLUCOSE (test code = 243 mg/dL 70-110 H 4270287031) CREATININE (test code = 1.22 mg/dL 0.6-1.25 6508944289) CALCIUM (test code = 9.8 mg/dL 8.6-10.6 8019746151) eGFR Calculation mL/min/1.73m2 (Non-) (test code = 9520725804) eGFR Calculation mL/min/1.73m2 () (test code = 2925813020) ALYSSA (test code = ALYSSA) Association of [...] tests). Lab Interpretation Abnormal (test code = 90922-7) [facility] WITH [id number] 10:23:00 Test Item Value Reference Range Interpretation Comments WBC (test code = See_Comment [Automated message] 6690-2) The system [employer] generated this result transmitted ref erence range: 4.20 - 1 0.70 10*3/?L. The re ference range was not u sed to interpret this result as normal/abnor mal. RBC (test code = See_Comment [Automated message] 789-8) The system [employer] generated this result transmitted ref erence range: [...] RDW-SD (test code 47.8 fL 38.5-51.6 = 15369-6) RDW-CV (test code 14.4 % 12.1-15.4 = 788-0) PLT (test code = See_Comment [Automated message] 777-3) The system [employer] generated this result transmitted ref erence range: 150 - 32 8 10*3/?L. The re ference range was not u sed to interpret this result as normal/abnor mal. MPV (test code = 9.8 fL 9.8-13 99302-7) NRBC/100 WBC (test See_Comment [Automat ed message] code = 9293117666) The syste [employer] which generated this result transmitted ref erence range: 0.0 - 10 .0 /100 WBCs. The refer ence range was not u sed to interpret this result as normal/abnor mal. NRBC x10^3 (test <0.01 See_Comment [Automated message] code = 2165029638) The syste m which generated this result transmitted ref erence range: 10*3/?L. The reference range was not used to interpr et this result as normal/abnormal . GRAN MAT (NEUT) % 48.8 % (test code = 770-8) IMM GRAN % (test 0.20 % code = 6147911037) LYMPH % (test code 34.7 % = 736-9) MONO % (test code 10.8 % = 5905-5) EOS % (test code = 4.9 % 713-8) BASO % (test code 0.6 % = 706-2) GRAN MAT 2.49 10*3/uL 1.99-6.95 x10^3(ANC) (test code = 3574750629) IMM GRAN x10^3 <0.03 0-0.06 (test code = 4701238915) LYMPH x10^3 (test 1.77 10*3/uL 1.09-3.23 code = 731-0) MONO x10^3 (test 0.55 10*3/uL 0.36-1.02 code = 742-7) EOS x10^3 (test 0.25 10*3/uL 0.06-0.53 code = 711-2) BASO x10^3 (test 0.03 10*3/uL 0.01-0.09 code = 704-7) [facility] HospitalXR CHEST 1 [id number] 03:06:08 No acute cardiopulmonary process. Unchanged enlargement [...] study and agree with the abovereport.[facility] CORONAVIRUS COVID-19 [id number] 00:34:00 Test Item Value Reference Range Interpretation Comments SARS-CoV-2 (test code = Not Detected Not Detected 76378-6) ALYSSA (test code = ALYSSA) ID NOW COVID-19 Assay is an isothermal nucleic acid amplification test intended for the qualitative detection of nucleic acid from SARS-CoV-2 viral RNA in nasopharyngeal (ICE GUARD INSPECTOR) specimens. It is used under Emergency Use [...] indicated. Lab Interpretation Normal (test code = 97183-7) [facility] HospitalTroponin [id number] 00:08:00 Test Item Value Reference Range Interpretation Comments TROPONIN I (test 0.056 ng/mL See_Comment H [Automated code = 6882284279) message] The system which generated this result [...] ? Lab Interpretation Abnormal (test code = 26930-2) [facility] HospitalN-TERMINAL [id number] 00:04:00 Test Item Value Reference Range Interpretation Comments NT-proBNP (test code 562 pg/mL See_Comment H [Autom ated = 4709885117) message] The system which generated this result transmitted reference range : <=450. The reference range was not used to interpret this result as normal/abnormal . ALYSSA (test code = ALYSSA) Biotin has been reported to cause a negative bias, interpret results relative to patient's use of biotin. Lab Interpretation Abnormal (test code = 29703-4) [facility] HospitalProthrombin Time (PT) / [id number] 23:57:00 Test Item Value Reference Range Interpretation [...] tions. Lab Interpretation (test Normal code = 35683-5) [facility] HospitalBasi Metabolic Panel (NA, K, CL, CO2, GLUCOSE, BUN, CREATININE, CA)2020-03-04 23:56:00 Test Item Value Reference Range Interpretation Comments NA (test code = 139 mmol/L 135-145 9039334952) K (test code = 4.1 mmol/L 3.5-5 6559170277) CL (test code = 102 mmol/L 98-108 7282396103) CO2 TOTAL (test code = 29 mmol/L 23-31 6204385729) AGAP (test code = 2-16 0613621588) BUN (test code = 23 mg/dL 7-23 9798992283) GLUCOSE (test code = 193 mg/dL 70-110 H 1409440654) CREATININE (test code = 1.25 mg/dL 0.6-1.25 1475260584) CALCIUM (test code = 9.7 mg/dL 8.6-10.6 0852282412) eGFR Calculation mL/min/1.73m2 (Non-) (test code = 0987387230) eGFR Calculation mL/min/1.73m2 () (test code = 4045926941) ALYSSA (test code = ALYSSA) Association of [...] tests). Lab Interpretation Abnormal (test code = 89446-2) [facility] HospitalHepatic Function Panel (ALB, T.PRO, BILI T, BU/BC, ALT, AST, ALK PHOS)2020-03-04 23:56:00 Test Item Value Reference Range Interpretation Comments TOTAL BILI (test code = 8971635112) 1.1 mg/dL 0.1-1.1 BILI UNCON (test code = 4850006240) 1.1 mg/dL 0.1-1.1 BILI CONJ (test code = 5667191095) 0.0 mg/dL 0-0.3 T PROTEIN (test code = 4020710991) 7.1 g/dL 6.3-8.2 ALBUMIN (test code = 4478347652) 4.1 g/dL 3.5-5 ALK PHOS (test code = 0057957789) 61 U/L 34-122 ALTv (test code = 1742-6) 16 U/L 5-50 AST(SGOT) (test code = 7276413148) 23 U/L 13-40 Lab Interpretation (test code = Normal 97434-7) [facility] HospitalLipase [id number] 23:56:00 Test Item Value Reference Range Interpretation Comments LIPASE (test code = 3893839672) 149 U/L 0-220 Lab Interpretation (test code = Normal 73067-3) [facility] HospitalaPTT2020-04-19 23:56:00 Test Item Value Reference Range Interpretation Comments APTT Patient (test See_Comment [Automat ed code = 3173-2) message] The system which generated this result transmitted reference range : 23 - 38 Seconds . The reference range was not used to interpr et this result as normal/abnormal . ALYSSA (test code = ALYSSA) The [facility] patient population mean normal value for aPTT is 30 seconds. Lab Interpretation Normal (test code = 92141-1) [facility] HospitalCBC WITH [id number] 23:46:00 Test Item Value Reference Range Interpretation Comments WBC (test code = See_Comment [Automated 0490-2) message] The sy stem which generated this result transmitted reference range : 4.20 - 10.70 10*3/?L. The reference range was not used to interpret this result as normal/abnormal . RBC (test code = See_Comment L [Automated 759-8) message] The sy stem which generated this [...] RDW-SD (test code = 48.3 fL 38.5-51.6 56194-2) RDW-CV (test code = 14.7 % 12.1-15.4 788-0) PLT (test code = See_Comment [Automated 777-3) message] The sy stem which generated this result transmitted reference range : 150 - 328 10*3/ ?L. The reference r corey was not used to interpret this result as normal/abnormal . MPV (test code = 9.8 fL 9.8-13 98932-6) NRBC/100 WBC (test See_Comment [Automat ed code = 0738432415) message] The system which generated this result transmitted reference range : 0.0 - 10.0 /100 WBCs. The refer ence range was not u sed to interpret th is result as normal/abnormal . NRBC x10^3 (test code <0.01 See_Comment [Auto mated = 1018106111) message] The s ystem which generated this result transmitted reference range : 10*3/?L. The reference range was not used to interpret this result as normal/abnormal . GRAN MAT (NEUT) % 60.1 % (test code = 770-8) IMM GRAN % (test code 0.20 % = 4634857470) LYMPH % (test code = 26.4 % 736-9) MONO % (test code = 9.9 % 5905-5) EOS % (test code = 2.8 % 713-8) BASO % (test code = 0.6 % 706-2) GRAN MAT x10^3(ANC) 3.17 10*3/uL 1.99-6.95 (test code = 8165685769) IMM GRAN x10^3 (test <0.03 0-0.06 code = 2401813748) LYMPH x10^3 (test code 1.39 10*3/uL 1.09-3.23 = 731-0) MONO x10^3 (test code 0.52 10*3/uL 0.36-1.02 = 742-7) EOS x10^3 (test code = 0.15 10*3/uL 0.06-0.53 711-2) BASO x10^3 (test code 0.03 10*3/uL 0.01-0.09 = 704-7) Lab Interpretation Abnormal (test code = 04663-3) [facility] GLUCOSE (AUTOMATED)2020-03-02 16:04:00 Test Item Value Reference Range Interpretation Comments POCT GLU (test code = 8262610596) 214 mg/dL 70-110 H Lab Interpretation (test code = Abnormal 73373-7) [facility] GLUCOSE (AUTOMATED)2020-03-02 16:04:00 Test Item Value Reference Range Interpretation Comments POCT GLU (test code = 2764325224) 271 mg/dL 70-110 H Lab Interpretation (test code = Abnormal 85381-5) [facility] HospitalN-TERMINAL [id number] 09:43:00 Test Item Value Reference Range Interpretation Comments NT-proBNP (test code 1670 pg/mL See_Comment H [Autom ated = 2954920232) message] The system which generated this result transmitted reference range : <=450. The reference range was not used to interpret this result as normal/abnormal . ALYSSA (test code = ALYSSA) Biotin has been reported to cause a negative bias, interpret results relative to patient's use of biotin. Lab Interpretation Abnormal (test code = 43415-4) [facility] (NA, K, CL, CO2, GLUCOSE, BUN, CREATININE, CA)2020-03-02 09:33:00 Test Item Value Reference Range Interpretation Comments NA (test code = 143 mmol/L 135-145 1018678290) K (test code = 3.8 mmol/L 3.5-5 3483441949) CL (test code = 105 mmol/L 98-108 2646201709) CO2 TOTAL (test code = 28 mmol/L 23-31 1489099607) AGAP (test code = 2-16 2749875955) BUN (test code = 19 mg/dL 7-23 1308833685) GLUCOSE (test code = 152 mg/dL 70-110 H 4958966202) CREATININE (test code = 1.18 mg/dL 0.6-1.25 1045596156) CALCIUM (test code = 9.0 mg/dL 8.6-10.6 4518461144) eGFR Calculation mL/min/1.73m2 (Non-) (test code = 0066576549) eGFR Calculation mL/min/1.73m2 () (test code = 6184500967) ALYSSA (test code = ALYSSA) Association of [...] tests). Lab Interpretation Abnormal (test code = 69892-9) [facility] Test Item Value Reference Range Interpretation Comments MAGNESIUM (test code = 7671094104) 1.8 mg/dL 1.7-2.4 Lab Interpretation (test code = Normal 62740-0) [facility]PO[facility]SE (AUTOMATED)2020-03-01 20:42:00 Test Item Value Reference Range Interpretation Comments POCT GLU (test code = 0797381289) 231 mg/dL 70-110 H Lab Interpretation (test code = Abnormal 44360-2) [facility] HospitalVITAMIN B12, [id number] 11:51:00 Test Item Value Reference Range Interpretation Comments VIT B12 (test code = 325 pg/mL 240-930 4179572483) ALYSSA (test code = ALYSSA) Biotin has been reported to cause a positive bias, interpret results relative to patient's use of biotin. Lab Interpretation (test Normal code = 71421-2) [facility] HospitalFOLATE2020-04-16 11:49:00 Test Item Value Reference Range Interpretation Comments FOLATE SER (test code = >20.0 3-20 H Slig ht hemolysis 2996504158) Lab Interpretation (test Abnormal code = 53893-5) [facility] HospitalPROCALCITONIN2020-04-16 10:49:00 Test Item Value Reference Range Interpretation Comments Procalcitonin (test 3.05 ng/mL <0.07 H code = 5255209171) ALYSSA (test code = ALYSSA) INTERPRETATION OF [...] lung abscess/empyema. For further information please refer to:[email or web address] Lab Interpretation Abnormal (test code = 57341-1) [facility] HospitalKARINSANTOS [id number] 09:58:00 Test Item Value Reference Range Interpretation Comments TROPONIN I (test 0.093 ng/mL See_Comment H [Automated code = 2837313149) message] The system which generated this result [...] ? Lab Interpretation Abnormal (test code = 14649-1) [facility] HospitalN-TERMINAL [id number] 09:55:00 Test Item Value Reference Range Interpretation Comments NT-proBNP (test code 4450 pg/mL See_Comment H [Autom ated = 1458379625) message] The system which generated this result transmitted reference range : <=450. The reference range was not used to interpret this result as normal/abnormal . ALYSSA (test code = ALYSSA) Biotin has been reported to cause a negative bias, interpret results relative to patient's use of biotin. Lab Interpretation Abnormal (test code = 85397-4) [facility] HospitalBasi Metabolic Panel (NA, K, CL, CO2, GLUCOSE, BUN, CREATININE, CA)2020-03-01 09:50:00 Test Item Value Reference Range Interpretation Comments NA (test code = 141 mmol/L 135-145 2467196762) K (test code = 3.5 mmol/L 3.5-5 3401950069) CL (test code = 105 mmol/L 98-108 0151162386) CO2 TOTAL (test code = 26 mmol/L 23-31 0283411219) AGAP (test code = 2-16 3742415551) BUN (test code = 13 mg/dL 7-23 1552081866) GLUCOSE (test code = 219 mg/dL 70-110 H 7110159069) CREATININE (test code = 1.01 mg/dL 0.6-1.25 6286016648) CALCIUM (test code = 8.7 mg/dL 8.6-10.6 3354588362) eGFR Calculation mL/min/1.73m2 (Non-) (test code = 9237545583) eGFR Calculation mL/min/1.73m2 () (test code = 8480018906) ALYSSA (test code = ALYSSA) Association of [...] tests). Lab Interpretation Abnormal (test code = 35474-7) [facility] [id number] 09:50:00 Test Item Value Reference Range Interpretation Comments MAGNESIUM (test code = 6896524295) 1.9 mg/dL 1.7-2.4 Lab Interpretation (test code = Normal 65875-7) [facility] WITH [id number] 09:22:00 Test Item Value Reference Range Interpretation [...] RDW-SD (test code = 47.8 fL 38.5-51.6 77722-3) RDW-CV (test code = 14.8 % 12.1-15.4 788-0) PLT (test code = See_Comment L [Automated 777-3) message] The sy stem which generated this result transmitted reference range : 150 - 328 10*3/ ?L. The reference r corey was not used to interpret this result as normal/abnormal . MPV (test code = 9.9 fL 9.8-13 99798-5) NRBC/100 WBC (test See_Comment [Automat ed code = 9290533545) message] The system which generated this result transmitted reference range : 0.0 - 10.0 /100 WBCs. The refer ence range was not u sed to interpret th is result as normal/abnormal . NRBC x10^3 (test code <0.01 See_Comment [Auto mated = 3562198825) message] The s [employer] which generated this result transmitted reference range : 10*3/?L. The reference range was not used to interpret this result as normal/abnormal . GRAN MAT (NEUT) % 66.0 % (test code = 770-8) IMM GRAN % (test code 0.30 % = 8539332844) LYMPH % (test code = 20.8 % 736-9) MONO % (test code = 9.5 % 5905-5) EOS % (test code = 2.8 % 713-8) BASO % (test code = 0.6 % 706-2) GRAN MAT x10^3(ANC) 4.44 10*3/uL 1.99-6.95 (test code = 3122819589) IMM GRAN x10^3 (test <0.03 0-0.06 code = 8831983127) LYMPH x10^3 (test code 1.40 10*3/uL 1.09-3.23 = 731-0) MONO x10^3 (test code 0.64 10*3/uL 0.36-1.02 = 742-7) EOS x10^3 (test code = 0.19 10*3/uL 0.06-0.53 711-2) BASO x10^3 (test code 0.04 10*3/uL 0.01-0.09 = 704-7) Lab Interpretation Abnormal (test code = 04789-6) [facility] HospitalGLYCOSYLATED HEMOGLOBIN (A1C)2020-03-01 06:49:00 Test Item [...] Indicated Lab Interpretation Abnormal (test code = 78477-3) [facility] HospitalURIC [id number] 06:25:00 Test Item Value Reference Range Interpretation Comments URIC ACID (test code = 9642488018) 2.3 mg/dL 3.6-8 L Lab Interpretation (test code = Abnormal 46799-3) [facility] HospitalSEDIMENTATION [id number] 05:25:00 Test Item Value Reference Range Interpretation Comments ESR (test code = See_Comment H [Automated message] 3034765126) The system [employer] generated this result transmitted ref erence range: 0 - 10 m m/HR. The reference r corey was not used to interpret this result as normal/abnor mal. Lab Interpretation (test Abnormal code = 09096-9) [facility] HospitalN-TERMINAL [id number] 04:07:00 Test Item Value Reference Range Interpretation Comments NT-proBNP (test code 4080 pg/mL See_Comment H [Autom ated = 8581116965) message] The system which generated this result transmitted reference range : <=450. The reference range was not used to interpret this result as normal/abnormal . ALYSSA (test code = ALYSSA) Biotin has been reported to cause a negative bias, interpret results relative to patient's use of biotin. Lab Interpretation Abnormal (test code = 79573-1) [facility] HospitalPOCT GLUCOSE (AUTOMATED)2020-03-01 03:42:00 Test Item Value Reference Range Interpretation Comments POCT GLU (test code = 8345284778) 190 mg/dL 70-110 H Lab Interpretation (test code = Abnormal 65110-7) [facility] HospitalTROPONIN [id number] 03:30:00 Test Item Value Reference Range Interpretation Comments TROPONIN I (test 0.098 ng/mL See_Comment H [Automated code = 1375514397) message] The system which generated this result [...] ? Lab Interpretation Abnormal (test code = 36640-3) [facility] HospitalHEPATIC FUNCTION PANEL (73912) (ALB,T.PRO,BILI T,BU/BC,ALT,AST,ALK PHOS)2020-03-01 03:24:00 Test Item Value Reference Range Interpretation Comments TOTAL BILI (test code = 4457179320) 2.2 mg/dL 0.1-1.1 H BILI UNCON (test code = 6706738852) 2.0 mg/dL 0.1-1.1 H BILI CONJ (test code = 1235417638) 0.0 mg/dL 0-0.3 T PROTEIN (test code = 1301037591) 6.7 g/dL 6.3-8.2 ALBUMIN (test code = 8129771670) 4.0 g/dL 3.5-5 ALK PHOS (test code = 5058950097) 48 U/L 34-122 ALTv (test code = 1742-6) 18 U/L 5-50 AST(SGOT) (test code = 5153734116) 57 U/L 13-40 H Lab Interpretation (test code = Abnormal 21012-8) [facility] HospitalPhosphorus [id number] 03:17:00 Test Item Value Reference Range Interpretation Comments PHOSPHORUS (test code = 3.1 mg/dL 2.5-5 Slig ht hemolysis 4829898061) Lab Interpretation (test Normal code = 06054-9) [facility] HospitalPROTHROMBIN TIME / [id number] 03:08:00 Test Item Value Reference Range Interpretation Comments PROTIME PATIENT (test See_Comment [Auto mated message] code = 5964-2) The system [facility] generated this result transmitted ref erence range: 12.0 - 1 4.7 Seconds. The re ference range was not u sed to interpret this result as normal/abnor mal. INR (test code = 6301-6) Nor mal INR <1.1; Warfarin Therap eutic range 2.0 to 3. 0 or 2.5 to 3.5, dep ending upon the indica tions. Lab Interpretation (test Normal code = 97277-1) [facility] HospitalCREATINE [id number] 03:01:00 Test Item Value Reference Range Interpretation Comments CK (test code = 6812702629) 68 U/L 33-194 Lab Interpretation (test code = Normal 82221-2) [facility] HospitalURIC [id number] 02:41:00 Test Item Value Reference Range Interpretation Comments URIC ACID (test code = 5180374357) 2.3 mg/dL 3.6-8 L Lab Interpretation (test code = Abnormal 45912-5) [facility] HospitalTHYROID STIMULATING [id number] 02:26:00 Test Item Value Reference Range Interpretation Comments TSH (test code = See_Comment [Automated message] 2572684648) The system [facility] h generated this result transmitted ref erence range: 0.45 - 4 .70 mIU/L. The refe rence range was not u sed to interpret this result as normal/abnor mal. Lab Interpretation (test Normal code = 42759-9) [facility] HospitalN-TERMINAL [id number] 02:04:00 Test Item Value Reference Range Interpretation Comments NT-proBNP (test code 4390 pg/mL See_Comment H [Autom ated = 5752633037) message] The system which generated this result transmitted reference range : <=450. The reference range was not used to interpret this result as normal/abnormal . ALYSSA (test code = ALYSSA) Biotin has been reported to cause a negative bias, interpret results relative to patient's use of biotin. Lab Interpretation Abnormal (test code = 68278-5) [facility] HospitalMAGNESIUM2020-04-16 02:01:00 Test Item Value Reference Range Interpretation Comments MAGNESIUM (test code = 0705854620) 1.5 mg/dL 1.7-2.4 L Lab Interpretation (test code = Abnormal 08086-5) [facility] HospitalLIPASE2020-04-16 00:22:00 Test Item Value Reference Range Interpretation Comments LIPASE (test code = 0209151322) 68 U/L 0-220 Lab Interpretation (test code = Normal 33730-8) [facility] HospitalCORONAVIRUS COVID-19 [id number] 23:42:00 Test Item Value Reference Range Interpretation Comments SARS-CoV-2 (test code = Not Detected Not Detected 21116-7) LAYSSA (test code = ALYSSA) ID NOW COVID-19 Assay is an isothermal nucleic acid amplification test intended for the qualitative detection of nucleic acid from SARS-CoV-2 viral RNA in nasopharyngeal (ICE GUARD INSPECTOR) specimens. It is used under Emergency Use [...] indicated. Lab Interpretation Normal (test code = 53365-9) [facility] HospitalXR CHEST 1 VW [id number] 23:26:02 No acute intrathoracic abnormality, specifically no radiographic findingsto suggest COVID-19 pneumonia. Disclaimer: Generally, the findings on chest imaging in COVID-19 are notspecific, and overlap with other infections, including influenza, H1N1,SARS and MERS. According to the Centers for Disease Control (CDC) and recent statement ofthe [employer], viral testing remains the [...] Disease Control (CDC) and recent statement ofthe [employer], viral testing remains the only specificmethod of diagnosis. Confirmation with the viral test is required, even ifradiologic findings are suggestive of COVID-[address]. Preliminary Report Dictated by Resident: Radu Boo MD., have reviewed this study and agree with theabovereport.[facility] HospitalDomingo [id number] 22:59:00 Test Item Value Reference Range Interpretation Comments TROPONIN I (test 0.071 ng/mL See_Comment H [Automated code = 2422389014) message] The system which generated this result [...] ? Lab Interpretation Abnormal (test code = 25711-5) [facility]Ba[facility] Metabolic [facility] (NA, K, CL, CO2, GLUCOSE, BUN, CREATININE, CA)2020-02-29 22:48:00 Test Item Value Reference Range Interpretation Comments NA (test code = 141 mmol/L 135-145 9775659520) K (test code = 3.2 mmol/L 3.5-5 L 0203244339) CL (test code = 104 mmol/L 98-108 9781387828) CO2 TOTAL (test code = 25 mmol/L 23-31 2066207686) AGAP (test code = 2-16 1661616887) BUN (test code = 12 mg/dL 7-23 6483805043) GLUCOSE (test code = 250 mg/dL 70-110 H 7053620733) CREATININE (test code = 1.02 mg/dL 0.6-1.25 5438593161) CALCIUM (test code = 8.9 mg/dL 8.6-10.6 5096383708) eGFR Calculation mL/min/1.73m2 (Non-) (test code = 9217198107) eGFR Calculation mL/min/1.73m2 () (test code = 4928311933) ALYSSA (test code = ALYSSA) Association of [...] tests). Lab Interpretation Abnormal (test code = 81868-5) [facility] WITH [id number] 22:41:00 Test Item Value Reference Range Interpretation [...] RDW-SD (test code = 46.6 fL 38.5-51.6 94706-2) RDW-CV (test code = 14.6 % 12.1-15.4 788-0) PLT (test code = See_Comment [Automated 777-3) message] The sy stem which generated this result transmitted reference range : 150 - 328 10*3/ ?L. The reference r corey was not used to interpret this result as normal/abnormal . MPV (test code = 9.7 fL 9.8-13 L 16840-8) NRBC/100 WBC (test See_Comment [Automat ed code = 6716220946) message] The system which generated this result transmitted reference range : 0.0 - 10.0 /100 WBCs. The refer ence range was not u sed to interpret th is result as normal/abnormal . NRBC x10^3 (test code <0.01 See_Comment [Auto mated = 1362841864) message] The s [employer] which generated this result transmitted reference range : 10*3/?L. The reference range was not used to interpret this result as normal/abnormal . GRAN MAT (NEUT) % 68.6 % (test code = 770-8) IMM GRAN % (test code 0.30 % = 9876167928) LYMPH % (test code = 18.6 % 736-9) MONO % (test code = 10.1 % 5905-5) EOS % (test code = 1.8 % 713-8) BASO % (test code = 0.6 % 706-2) GRAN MAT x10^3(ANC) 4.29 10*3/uL 1.99-6.95 (test code = 2274637476) IMM GRAN x10^3 (test <0.03 0-0.06 code = 5534316081) LYMPH x10^3 (test code 1.16 10*3/uL 1.09-3.23 = 731-0) MONO x10^3 (test code 0.63 10*3/uL 0.36-1.02 = 742-7) EOS x10^3 (test code = 0.11 10*3/uL 0.06-0.53 711-2) BASO x10^3 (test code 0.04 10*3/uL 0.01-0.09 = 704-7) Lab Interpretation Abnormal (test code = 68688-6) [facility] HospitalLactic Acid Whole [id number] 22:38:00 Test Item Value Reference Range Interpretation Comments LACTIC ACID (test code = 1.88 mmol/L 0.3-2.6 2998832750) [facility] HospitalPODC GLUCOSE (AUTOMATED)2020-01-17 18:18:00 Test Item Value Reference Range Interpretation Comments POCT GLU (test code = 4873058891) 290 mg/dL 70-110 H Lab Interpretation (test code = Abnormal 96283-6) [facility] HospitalTROPONIN [id number] 18:01:00 Test Item Value Reference Range Interpretation Comments TROPONIN I (test 0.065 ng/mL See_Comment H [Automated code = 2726733289) message] The system which generated this result [...] ? Lab Interpretation Abnormal (test code = 52879-4) [facility] HospitalaPTT2020-03-03 17:10:00 Test Item Value Reference Range Interpretation Comments APTT Patient (test See_Comment H [Automat ed code = 3173-2) message] The system which generated this result transmitted reference range : 23 - 38 Seconds . The reference range was not used to interpr et this result as normal/abnormal . ALYSSA (test code = ALYSSA) The [facility] patient population mean normal value for aPTT is 30 seconds. Lab Interpretation Abnormal (test code = 37247-1) [facility] HospitalPOCT GLUCOSE (AUTOMATED)2020-01-17 11:59:00 Test Item Value Reference Range Interpretation Comments POCT GLU (test code = 8266825116) 185 mg/dL 70-110 H Lab Interpretation (test code = Abnormal 29268-8) [facility] HospitalTROPONIN [id number] 11:23:00 Test Item Value Reference Range Interpretation Comments TROPONIN I (test 0.073 ng/mL See_Comment H [Automated code = 2132622694) message] The system which generated this result [...] ? Lab Interpretation Abnormal (test code = 53557-3) [facility] HospitalBasic Metabolic Panel (NA, K, CL, CO2, GLUCOSE, BUN, CREATININE, CA)2020-01-17 11:16:00 Test Item Value Reference Range Interpretation Comments NA (test code = 136 mmol/L 135-145 2377644454) K (test code = 3.3 mmol/L 3.5-5 L 5962387373) CL (test code = 101 mmol/L 98-108 1284354426) CO2 TOTAL (test code = 26 mmol/L 23-31 5994389888) AGAP (test code = 2-16 5359216434) BUN (test code = 19 mg/dL 7-23 8007737318) GLUCOSE (test code = 227 mg/dL 70-110 H 0384257723) CREATININE (test code = 1.33 mg/dL 0.6-1.25 H 6593597264) CALCIUM (test code = 9.1 mg/dL 8.6-10.6 7680745854) eGFR Calculation mL/min/1.73m2 (Non-) (test code = 6665765560) eGFR Calculation mL/min/1.73m2 () (test code = 9249170287) ALYSSA (test code = ALYSSA) Association of [...] tests). Lab Interpretation Abnormal (test code = 58379-7) [facility] HospitalaPTT2020-03-03 11:00:00 Test Item Value Reference Range Interpretation Comments APTT Patient (test See_Comment H [Automat ed code = 3173-2) message] The system which generated this result transmitted reference range : 23 - 38 Seconds . The reference range was not used to interpr et this result as normal/abnormal . ALYSSA (test code = ALYSSA) The [facility] patient population mean normal value for aPTT is 30 seconds. Lab Interpretation Abnormal (test code = 11576-6) [facility] HospitalCBC WITH [id number] 10:43:00 Test Item Value Reference Range Interpretation Comments WBC (test code = See_Comment [Automated message] 6690-2) The system [employer] generated this result transmitted ref erence range: 4.20 - 1 0.70 10*3/?L. The re ference range was not u sed to interpret this result as normal/abnor mal. RBC (test code = See_Comment [Automated message] 789-8) The system [employer] generated this result transmitted ref erence range: [...] RDW-SD (test code 41.5 fL 38.5-51.6 = 41310-2) RDW-CV (test code 12.8 % 12.1-15.4 = 788-0) PLT (test code = See_Comment [Automated message] 977-3) The system whic h generated this result transmitted ref erence range: 150 - 32 8 10*3/?L. The re ference range was not u sed to interpret this result as normal/abnor mal. MPV (test code = 10.7 fL 9.8-13 84740-7) NRBC/100 WBC (test See_Comment [Automat ed message] code = 0927500561) The syste m which generated this result transmitted ref erence range: 0.0 - 10 .0 /100 WBCs. The refer ence range was not u sed to interpret this result as normal/abnor mal. NRBC x10^3 (test <0.01 See_Comment [Automated message] code = 4616905244) The syste m which generated this result transmitted ref erence range: 10*3/?L. The reference range was not used to interpr et this result as normal/abnormal . GRAN MAT (NEUT) % 56.1 % (test code = 770-8) IMM GRAN % (test 0.30 % code = 7342641975) LYMPH % (test code 29.5 % = 736-9) MONO % (test code 9.9 % = 5905-5) EOS % (test code = 3.3 % 713-8) BASO % (test code 0.9 % = 706-2) GRAN MAT 3.73 10*3/uL 1.99-6.95 x10^3(ANC) (test code = 0898684741) IMM GRAN x10^3 <0.03 0-0.06 (test code = 4178335424) LYMPH x10^3 (test 1.96 10*3/uL 1.09-3.23 code = 731-0) MONO x10^3 (test 0.66 10*3/uL 0.36-1.02 code = 742-7) EOS x10^3 (test 0.22 10*3/uL 0.06-0.53 code = 711-2) BASO x10^3 (test 0.06 10*3/uL 0.01-0.09 code = 704-7) [facility] GLUCOSE (AUTOMATED)2020-01-17 01:49:00 Test Item Value Reference Range Interpretation Comments POCT GLU (test code = 2041342048) 305 mg/dL 70-110 H Lab Interpretation (test code = Abnormal 86549-8) [facility] HospitalPOCT GLUCOSE (AUTOMATED)2020-01-17 00:01:00 Test Item Value Reference Range Interpretation Comments POCT GLU (test code = 2100077414) 271 mg/dL 70-110 H Lab Interpretation (test code = Abnormal 37775-4) [facility] HospitalaPTT2020-03-02 22:23:00 Test Item Value Reference Range Interpretation Comments APTT Patient (test See_Comment H [Automat ed code = 3173-2) message] The system which generated this result transmitted reference range : 23 - 38 Seconds . The reference range was not used to interpr et this result as normal/abnormal . ALYSSA (test code = ALYSSA) The [facility] patient population mean normal value for aPTT is 30 seconds. Lab Interpretation Abnormal (test code = 47465-0) [facility] HospitalTROPONIN [id number] 21:22:00 Test Item Value Reference Range Interpretation Comments TROPONIN I (test 0.061 ng/mL See_Comment H [Automated code = 0401652813) message] The system which generated this result [...] ? Lab Interpretation Abnormal (test code = 72869-5) [facility] HospitalPOCT GLUCOSE (AUTOMATED)2020-01-16 17:37:00 Test Item Value Reference Range Interpretation Comments POCT GLU (test code = 8854075813) 271 mg/dL 70-110 H Lab Interpretation (test code = Abnormal 67380-6) [facility] HospitalaPTT2020-03-02 12:47:00 Test Item Value Reference Range Interpretation Comments APTT Patient (test See_Comment HH [Automat ed code = 3173-2) message] The system which generated this result transmitted reference range : 23 - 38 Seconds . The reference range was not used to interpr et this result as normal/abnormal . ALYSSA (test code = ALYSSA) The [facility] patient population mean normal value for aPTT is 30 seconds. Lab Interpretation Abnormal (test code = 84486-1) [facility] HospitalTROPONIN [id number] 12:35:00 Test Item Value Reference Range Interpretation Comments TROPONIN I (test 0.074 ng/mL See_Comment H [Automated code = 5131620782) message] The system which generated this result [...] ? Lab Interpretation Abnormal (test code = 72247-8) [facility] HospitalLIPID PANEL (73437)(TOTAL CHOLESTEROL, TRIGLYCERIDES, HDL)2020-01-16 12:23:00 Test Item Value Reference Range Interpretation Comments CHOL (test code = 95 mg/dL 120-200 L 1126465578) HDL (test code = 44 mg/dL >40 4104408453) HDLC RATIO (test code = See_Comment [Au tomated message] 8249490902) The system [employer] generated this result transmitted ref erence range: <=5.0. T he reference range was not used to int erpret this result as normal/abnormal . TRIG (test code = 89 mg/dL 30-170 3710832489) LDL CHOL (test code = 33 mg/dL See_Comment [Auto mated message] 09374-1) The system [employer] generated this result transmitted ref erence range: <=160. T he reference range was not used to int erpret this result as normal/abnormal . VLDL (test code = 18 mg/dL 5-60 3839914311) Lab Interpretation (test Abnormal code = 21003-1) [facility] HospitalGlycosylated Hemoglobin (A1C)2020-01-16 09:03:00 Test Item [...] Indicated Lab Interpretation Abnormal (test code = 49575-9) [facility] HospitalCritical [id number] 05:48:18Charanjit Heck MD ? ? 01/15/2020 11:48 [...] review of old charts and examination of patientUnMayhill HospitalProthrombin Time (PT) / [id number] 05:28:00 Test Item Value Reference Range Interpretation [...] tions. Lab Interpretation (test Normal code = 16173-1) [facility] 05:27[facility]00 Test Item Value Reference Range Interpretation Comments APTT Patient (test See_Comment [Automat ed code = 3173-2) message] The system which generated this result transmitted reference range : 23 - 38 Seconds . The reference range was not used to interpr et this result as normal/abnormal . ALYSSA (test code = ALYSSA) The [facility] patient population mean normal value for aPTT is 30 seconds. Lab Interpretation Normal (test code = 52657-2) [facility] HospitalTrop[facility] [id number] 05:11:00 Test Item Value Reference Range Interpretation Comments TROPONIN I (test 0.075 ng/mL See_Comment H [Automated code = 8586077743) message] The system which generated this result [...] ? Lab Interpretation Abnormal (test code = 45811-2) [facility] HospitalN-TERMINAL [id number] 05:08:00 Test Item Value Reference Range Interpretation Comments NT-proBNP (test code 896 pg/mL See_Comment H [Autom ated = 9134291696) message] The system which generated this result transmitted reference range : <=450. The reference range was not used to interpret this result as normal/abnormal . ALYSSA (test code = ALYSSA) Biotin has been reported to cause a negative bias, interpret results relative to patient's use of biotin. Lab Interpretation Abnormal (test code = 99495-3) [facility] HospitalBasi Metabolic Panel (NA, K, CL, CO2, GLUCOSE, BUN, CREATININE, CA)2020-01-16 04:59:00 Test Item Value Reference Range Interpretation Comments NA (test code = 136 mmol/L 135-145 5887757188) K (test code = 4.0 mmol/L 3.5-5 9747600673) CL (test code = 101 mmol/L 98-108 2477765663) CO2 TOTAL (test code = 27 mmol/L 23-31 3781483375) AGAP (test code = 2-16 3047183161) BUN (test code = 17 mg/dL 7-23 8271837273) GLUCOSE (test code = 445 mg/dL 70-110 H 2993434242) CREATININE (test code = 1.29 mg/dL 0.6-1.25 H 0926510923) CALCIUM (test code = 8.8 mg/dL 8.6-10.6 0036347181) eGFR Calculation mL/min/1.73m2 (Non-) (test code = 3629877525) eGFR Calculation mL/min/1.73m2 () (test code = 6228687110) ALYSSA (test code = ALYSSA) Association of [...] tests). Lab Interpretation Abnormal (test code = 13419-3) [facility] HospitalHepatic Function Panel (ALB, T.PRO, BILI T, BU/BC, ALT, AST, ALK PHOS)2020-01-16 04:59:00 Test Item Value Reference Range Interpretation Comments TOTAL BILI (test code = 5340383339) 1.3 mg/dL 0.1-1.1 H BILI UNCON (test code = 5856606129) 1.1 mg/dL 0.1-1.1 BILI CONJ (test code = 4747094055) 0.0 mg/dL 0-0.3 T PROTEIN (test code = 7989319430) 6.3 g/dL 6.3-8.2 ALBUMIN (test code = 8671409960) 3.9 g/dL 3.5-5 ALK PHOS (test code = 2589188369) 67 U/L 34-122 ALTv (test code = 1742-6) 15 U/L 5-50 AST(SGOT) (test code = 1624259806) 23 U/L 13-40 Lab Interpretation (test code = Abnormal 59169-2) [facility] 1 [id number] 04:54:13Impression: Moderate cardiomegaly without acute pulmonary process. RL: 460 AFC: 20600 Indication: Chest pain Comparison: None available Findings: Single AP view of the chest. The cardiopericardial silhouette ismoderately enlarged. The lungs are clear bilaterally. The visualized bonythorax is intact. A thoracic neurostimulator device is in place. [facility], Radiant Results Inft User - 01/15/2020 10:55 PM CSTIndication: Chest painComparison: None availableFindings: Single AP view of the chest. The cardiopericardial silhouette ismoderately enlarged. The lungs are clear bilaterally. The visualized bonythorax is intact. A thoracic neurostimulator device is in place.IMPRESSIONImpression:Moderate cardiomegaly without acute pulmonary process.RL: 460AFC: [id number] signed by Esperanza Rosado MD, PhD at 01/15/2020 10:54 PMUnCh[facility] WITH [id number] 04:51:00 Test Item Value Reference Range Interpretation Comments WBC (test code = See_Comment [Automated 2090-2) message] The sy stem which generated this [...] RDW-SD (test code = 40.7 fL 38.5-51.6 16977-0) RDW-CV (test code = 12.8 % 12.1-15.4 788-0) PLT (test code = See_Comment L [Automated 777-3) message] The sy stem which generated this result transmitted reference range : 150 - 328 10*3/ ?L. The reference r corey was not used to interpret this result as normal/abnormal . MPV (test code = 10.6 fL 9.8-13 48049-5) IPF % (test code = 2.8 % 1.2-10.7 Platelet count 2668576560) measured by fluorescence method. NRBC/100 WBC (test See_Comment [Automat ed code = 9306761937) message] The system which generated this result transmitted reference range : 0.0 - 10.0 /100 WBCs. The refer ence range was not u sed to interpret th is result as normal/abnormal . NRBC x10^3 (test code <0.01 See_Comment [Auto mated = 7610458749) message] The s ystem which generated this result transmitted reference range : 10*3/?L. The reference range was not used to interpret this result as normal/abnormal . GRAN MAT (NEUT) % 56.0 % (test code = 770-8) IMM GRAN % (test code 0.20 % = 0544346896) LYMPH % (test code = 30.5 % 736-9) MONO % (test code = 9.6 % 5905-5) EOS % (test code = 2.8 % 713-8) BASO % (test code = 0.9 % 706-2) GRAN MAT x10^3(ANC) 2.98 10*3/uL 1.99-6.95 (test code = 9858266555) IMM GRAN x10^3 (test <0.03 0-0.06 code = 7715015331) LYMPH x10^3 (test code 1.62 10*3/uL 1.09-3.23 = 731-0) MONO x10^3 (test code 0.51 10*3/uL 0.36-1.02 = 742-7) EOS x10^3 (test code = 0.15 10*3/uL 0.06-0.53 711-2) BASO x10^3 (test code 0.05 10*3/uL 0.01-0.09 = 704-7) Lab Interpretation Abnormal (test code = 30463-2) [facility]"
[2022-04-28] MEDS ORDERED: dexAMETHasone 10 MG/ML VIAL ONE (07:24)
[2022-04-28] MEDS ORDERED: IBUPROFEN 400 MG TAB ONE (07:24)
[2022-04-28] MEDS ORDERED: ONDANSETRON 4 MG/2 ML VIAL ONE (07:24)
[2022-04-28] MEDS ORDERED: MORPHINE 2 MG/ML SYR ONE (07:24)
--- NOTE | 2022-04-28 07:54 | EDPHYS ---
Physician Documentation [facility] Name: Demetrius Sarmiento Age: 81 yrs Sex: Male : 1940 Arrival Date: 04/28/2022 Time: 05:21 Bed 13 Private MD: ED Physician Isaias Anderson HPI: 04/28 07:23 This 81 yrs old Male presents to ER via EMS with complaints of Hip Pain. rn 07:23 This 81 yrs old Male presents to ER via EMS with complaints of back pain, sciatica. rn 07:23 The patient presents with pain that is chronic. The symptoms are located in the low rn back. Onset: The symptoms/episode began/occurred 1 week(s) ago. The pain radiates to the left leg. Associated signs and symptoms: Pertinent negatives: abdominal pain, chest pain, dysuria, fever, hematuria, incontinence, nausea, numbness, tingling, urinary retention, vomiting, weakness. Modifying factors: The patient symptoms are alleviated by remaining still, the patient symptoms are aggravated by movement, walking. Severity of symptoms: At their worst the symptoms were moderate, in the emergency department the symptoms are unchanged. The patient has experienced similar episodes in the past. It is unknown whether or not the patient has recently seen a physician. Pt reports has had identical problems with back and leg before, has been diagnosed with sciatica, no new symptoms, no bowel/bladder issues, no abd pain, no mid or upper back pain, radiates down left left. No injury or fall. No weakness. Reports pain now for last week, worse last night so came in for pain control.. Historical: - Allergies: 05:45 No Known Allergies; bb - PMHx: 05:45 diabetes mellitus; Hypercholesterolemia; Hypertensive disorder; [place]; sciatica; bb - Immunization history:: Adult Immunizations unknown. - Social history:: Smoking status: unknown. - Family history:: not pertinent. - Hospitalizations: : No recent hospitalization is reported. ROS: 07:23 Constitutional: Negative for fever, chills, and weight loss, Eyes: Negative for injury, rn pain, redness, and discharge, Cardiovascular: Negative for chest pain, palpitations, and edema, Respiratory: Negative for shortness of breath, cough, wheezing, and pleuritic chest pain, Abdomen/GI: Negative for abdominal pain, nausea, vomiting, diarrhea, and constipation, Back: + left lower back pain that radiates down left leg : Negative for injury, bleeding, discharge, and swelling, MS/Extremity: Negative for injury and deformity, Skin: Negative for injury, rash, and discoloration, Neuro: Negative for headache, weakness, numbness, tingling, and seizure. Exam: 07:23 Constitutional: This is a well developed, well nourished patient who is awake, alert, rn sitting in wheelchair, groaning Head/Face: Normocephalic, atraumatic. Cardiovascular: Tachycardic, regular Respiratory: No increased work of breathing, no retractions or nasal flaring. Abdomen/GI: soft, non-tender Skin: Warm, dry, no cyanosis MS/ Extremity: Pulses equal, no cyanosis. Neurovascular intact. Full, normal range of motion. Equal circumference. Able to fully flex and extend left and right hips without limitation Neuro: Awake and alert, GCS 15, oriented to person, place, time, and situation. Cranial nerves II-XII grossly intact. Motor strength 5/5 in all extremities. Sensory grossly intact. Vital Signs: 05:42 BP 117 / 94; Pulse 118; Resp 18 S; Temp 99.5(O); Pulse Ox 98% ; Weight 77.11 kg (R); bb Height 5 ft. 7 in. (170.18 cm) (R); Pain 10/10; 07:25 BP 126 / 77; Pulse 103; Resp 17; Pulse Ox 99% on R/A; Pain 9/10; ll1 05:42 Body Mass Index 26.63 (77.11 kg, 170.18 cm) bb MDM: 06:59 Patient medically screened. rn 07:53 Differential diagnosis: chronic back pain, Osteoarthritis sprain, radiculopathy, r d intern back pain. Data reviewed: vital signs, nurses notes, old medical records, and as a result, I will discharge patient. Counseling: I had a detailed discussion with the patient and/or guardian regarding: the historical points, exam findings, and any diagnostic results supporting the discharge/admit diagnosis, the need for outpatient follow up, to return to the emergency department if symptoms worsen or persist or if there are any questions or concerns that arise at home. Response to treatment: the patient's symptoms have mildly improved after treatment, and as a result, I will discharge patient. Special discussion: I discussed with the patient/guardian in detail that at this point there is no indication for admission to the hospital. It is understood, however, that if the symptoms persist or worsen the patient needs to return immediately for re-evaluation. 04/28 07:10 Order name: IV Start; Complete Time: :28 rn Administered Medications: 07:28 Drug: morphine 2 mg Route: IVP; Infused Over: 4 mins; Site: right forearm; ll1 08:24 Follow up: Response: No adverse reaction; RASS: Alert and Calm (0) ll1 07:28 Drug: Zofran (Ondansetron) 4 mg Route: IVP; Site: right forearm; ll1 08:24 Follow up: Response: No adverse reaction; RASS: Alert and Calm (0) ll1 07:28 Drug: Decadron - Dexamethasone 10 mg Route: IVP; Site: right forearm; ll1 08:24 Follow up: Response: No adverse reaction; RASS: Alert and Calm (0) ll1 07:28 Drug: Motrin (ibuprofen) 800 mg Route: PO; ll1 08:24 Follow up: Response: No adverse reaction; RASS: Alert and Calm (0) ll1 Disposition Summary: 04/28/22 07:53 Discharge Ordered Location: Home rn Problem: chronic rn Symptoms: have improved rn Condition: Stable rn Diagnosis - Radiculopathy, lumbosacral region rn Followup: rn - With: Private Physician - When: As needed - Reason: Recheck today's complaints, Re-evaluation by your physician Discharge Instructions: - Discharge Summary Sheet rn - Chronic Back Pain rn - Lumbosacral Radiculopathy rn Forms: - Medication Reconciliation Form rn - Thank You Letter rn - 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
--- NOTE | 2022-04-28 07:54 | ER ---
Nurse's Notes [facility] Name: Demetrius Sarmiento Age: 81 yrs Sex: Male : 1940 Arrival Date: 04/28/2022 Time: 05:21 Bed 13 Private MD: Diagnosis: Radiculopathy, lumbosacral region Presentation: 04/28 05:42 Chief complaint: Patient states: "I am having sciatic nerve pain again". Coronavirus bb screen: At this time, the client does not indicate any symptoms associated with coronavirus-19. Ebola Screen: No symptoms or risks identified at this time. Initial Sepsis Screen: Does the patient meet any 2 criteria? No. Patient's initial sepsis screen is negative. Does the patient have a suspected source of infection? No. Patient's initial sepsis screen is negative. Risk Assessment: Do you want to hurt yourself or someone else? Patient reports no desire to harm self or others. Onset of symptoms was April 28, 2022. 05:42 Method Of Arrival: EMS: [facility] bb 05:42 Acuity: LANCE 5 bb Triage Assessment: 05:45 General: Appears uncomfortable, slender, Behavior is anxious. Pain: Complains of pain bb in left hip Pain currently is 10 out of 10 on a pain scale. Neuro: Level of Consciousness is awake, alert, obeys commands, Oriented to person, place, situation. Cardiovascular: Capillary refill < 3 seconds Patient's skin is warm and dry. Respiratory: Respiratory effort is even, unlabored. GI: No signs and/or symptoms were reported involving the gastrointestinal system. Derm: Skin is dry, Skin is normal, Skin temperature is warm. Musculoskeletal: Circulation, motion, and sensation intact. Reports pain in left hip. Historical: - Allergies: 05:45 No Known Allergies; bb - PMHx: 05:45 diabetes mellitus; Hypercholesterolemia; Hypertensive disorder; [place]; sciatica; bb - Immunization history:: Adult Immunizations unknown. - Social history:: Smoking status: unknown. - Family history:: not pertinent. - Hospitalizations: : No recent hospitalization is reported. Screenin:30 Abuse screen: Denies threats or abuse. Nutritional screening: No deficits noted. ll1 Tuberculosis screening: No symptoms or risk factors identified. Assessment: 07:15 General: Appears uncomfortable, Behavior is cooperative, appropriate for age. Pain: ll1 Complains of pain in left leg Quality of pain is described as aching, sharp, throbbing. Musculoskeletal: Circulation, motion, and sensation intact. Capillary refill < 3 seconds, Range of motion: intact in all extremities. Vital Signs: 05:42 BP 117 / 94; Pulse 118; Resp 18 S; Temp 99.5(O); Pulse Ox 98% ; Weight 77.11 kg (R); bb Height 5 ft. 7 in. (170.18 cm) (R); Pain 10/10; 07:25 BP 126 / 77; Pulse 103; Resp 17; Pulse Ox 99% on R/A; Pain 9/10; ll1 05:42 Body Mass Index 26.63 (77.11 kg, 170.18 cm) bb ED Course: 05:21 Patient arrived in ED. bp1 05:45 Triage completed. bb 05:45 Arm band placed on Patient placed in waiting room, Patient notified of wait time. bb 06:59 Isaias Anderson MD is Attending Physician. rn 07:13 Kimani Waters RN is Primary Nurse. ll1 08:24 No provider procedures requiring assistance completed. IV discontinued, intact, ap3 bleeding controlled, No redness/swelling at site. Pressure dressing applied. Administered Medications: 07:28 Drug: morphine 2 mg Route: IVP; Infused Over: 4 mins; Site: right forearm; ll1 08:24 Follow up: Response: No adverse reaction; RASS: Alert and Calm (0) 1 07:28 Drug: Zofran (Ondansetron) 4 mg Route: IVP; Site: right forearm; ll1 08:24 Follow up: Response: No adverse reaction; RASS: Alert and Calm (0) ll1 07:28 Drug: Decadron - Dexamethasone 10 mg Route: IVP; Site: right forearm; ll1 08:24 Follow up: Response: No adverse reaction; RASS: Alert and Calm (0) ll1 07:28 Drug: Motrin (ibuprofen) 800 mg Route: PO; ll1 08:24 Follow up: Response: No adverse reaction; RASS: Alert and Calm (0) ll1 Medication: 08:24 VIS not applicable for this client. ap3 Outcome: 07:53 Discharge ordered by . rn 08:24 Condition: good ap3 08:24 Discharge instructions given to patient, Instructed on discharge instructions, follow up and referral plans. medication usage, Demonstrated understanding of instructions, follow-up care, medications, Prescriptions given X 1. 09:02 Patient left the ED. ll1 Signatures: Regina Pickering, RN RN Isaias Spencer MD MD rn Prokisch, Amanda, RN RN ap3 Kimani Waters RN RN ll1 Adrienne De La Fuente
[2022-04-28 09:07] VITALS: TEMP 99.5
[2022-04-28 09:10] VITALS: BP 126/77; O2SAT 99
== END 2022-04-28 09:02 | disposition home or self-care (01) ==
LOC: ER 05:18
DX: M54.17 Radiculopathy, lumbosacral region (principal); E11.9 Type 2 diabetes mellitus without complications; E78.00 Pure hypercholesterolemia, unspecified; I10 Essential (primary) hypertension; I25.2 Old myocardial infarction
CPT/HCPCS: J1100; J2270; J2405; 96374; 96375; 99283

== ENCOUNTER 2022-04-30 08:06 | Emergency (ER) | payer OTHER ==
--- OUTSIDE RECORDS SUMMARY | 2022-04-30 08:22 | XMS REPORT | Continuity of Care Document ---
:1940 Author Organization [facility] t Address 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 4-15 it y of 00:00: [place] 00 Medical Branch 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 3-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 00:00: [place] and and 00 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 2018- U nivers lobe lobe 1-06 ity of pneumonia pneumonia 00:00: [facility] s 00 Medical Branch PNA PNA Disease Active 2018- Univers (pneumonia (pneumonia 0-25 it y of ) ) 00:00: [place] 00 Medical Branch Acute on Acute on Disease Active 2018-11 Unive rs chronic chronic 0-25 ity of combined combined 00:00: [place] systolic systolic 00 Medica l and and Branch 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 Dyspnea Dyspnea Disease Active 2019- Univers 0-23 ity of 00:00: [place] 00 Medical Branch CHF CHF Disease Active 2019- Univers exacerbati exacerbati 2-17 it y of on on 00:00: [place] 00 Medical Branch Essential Essential Disease Active 2019- Uni vers hypertensi hypertensi 2-17 it y of on on 00:00: [place] 00 Medical Branch Type 2 Type 2 [...] 00:00: [place] involving involving 00 Medi birdie [place] 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 00:00: [place] disease disease 00 Medical Branch Coronary Coronary Disease Active Unive rs artery artery 1-27 ity of disease disease 00:00: [place] involving involving 00 Medi birdie [place] Branch coronary 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cab[place] 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 [...] Allergie 1-23 Clear s 00:00: [place] 00 [facility] NO KNOWN Drug Active Univers ALLERGIE Class ity of [facility] Social History Social Habit Start Date Stop Date Quantity Comments Source History of tobacco User of [facility] sit of use smokeless [facility] tobacco [place] Exposure to 2022-04-06 2022-04-16 Not sure University SARS-CoV-2 (event) 00:00:00 22:24:00 [facility] Alcohol intake 2022-03-01 2022-03-01 Current University of 00:00:00 00:00:00 non-drinker of [facility] alcohol [place] (finding) Cigarettes smoked 2018-12-11 2018-12-11 [facility] ity of current (pack per 00:00:00 00:00:00 [facility] ) - Reported Branch Cigarette 2018-12-11 2018-12-11 University of pack-years 00:00:00 00:00:00 [facility] Tobacco use and 2018-12-11 2018-12-11 Former user Universi ty of exposure 00:00:00 00:00:00 [facility] Sex Ass[birth year] At [birth year] Universit y of 00:00:00 00:00:00 [facility] Smoking Status Start Date Stop Date Source Former smoker 2018-12-11 00:00:00 2018-12-11 00:00:00 [facility] Medications Ordered Filled Start Stop Current Ordering Indication Dosage Frequency Signature Comments Components Source Medication Medication Date Date Medication? Clinician (SIG) Name Name FENTanyl PF No 25ug 25 mcg, Un mel (SUBLIMAZE 03-0116 Intramuscu it y of (PF)) 16:45: 16:23 lar, ONCE, [place] injection 00 :00 1 dose, On Medi birdie 25 mcg [facility] 03/01/22 at 1145, Routine cyclobenzap No 10mg 10 mg, Uni vers rine 03-0116 Oral, ity of (FLEXERIL) 14:00: 12:59 ONCE, 1 [place] tablet 10 00 :00 dose, On Medica l mg [facility] 03/01/22 at 0900, Routine HYDROcodone 2021- [...] 03/01/22 at 0900, 1 mL cyclobenzap Yes [id number] 10mg Take 1 Univers rine 10 mg 4-16 tablet by ity of tablet 00:00: mouth 3 [place] 00 (three) Medical times Branch daily as needed for Muscle Spasms. cyclobenzap Yes [id number] 10mg Take 1 Univers rine 10 mg 4-16 tablet by ity of tablet 00:00: mouth 3 [place] 00 (three) Medical times Branch daily as needed for Muscle Spasms. aspirin 81 2020-11- No [id number] 81mg Take 1 Univers mg chewable 2-04 12- tablet by it y of tablet 00:00: 05:59 mouth [place] 00 :00 daily for Medical 30 days. Branch clopidogreL 2020-11 No [id number] 75mg Take 1 Univers 75 mg 2-04 12- tablet by ity of tablet 00:00: 05:59 mouth [place] 00 :00 daily for Medical 30 days. Branch furosemide 2020-11- No [id number] 20mg Take 1 Univers 20 mg 2-04 12- tablet by ity of tablet 00:00: 05:59 mouth [place] 00 :00 daily for Medical 30 days. Branch aspirin 81 2020-11- No [id number] 81mg Take 1 Univers mg chewable 2-04 12- tablet by it y of tablet 00:00: 05:59 mouth [place] 00 :00 daily for Medical 30 days. Branch clopidogreL 2020-11- No [id number] 75mg Take 1 Univers 75 mg 2-19 - tablet by ity of tablet 00:00: 05:59 mouth [place] 00 :00 daily for Medical 30 days. Branch furosemide 2020-11- No [id number] 20mg Take 1 Univers 20 mg 01-04 tablet by ity of tablet 00:00: 05:59 mouth [place] 00 :00 daily for Medical 30 days. Branch aspirin 81 2020-11- No [id number] 81mg Take 1 Univers mg chewable 01-04 tablet by it y of tablet 00:00: 05:59 mouth [place] 00 :00 daily for Medical 30 days. Branch clopidogreL 2020-11- No [id number] 75mg Take 1 Univers 75 mg 01-04 tablet by ity of tablet 00:00: 05:59 mouth [place] 00 :00 daily for Medical 30 days. Branch furosemide 2020-11- No [id number] 20mg Take 1 Univers 20 mg 01-04 [...] 2-18 by mouth ity of 18:25: at [place] 21 bedtime. Medical Branch atorvastati 2020-11 Yes 40mg Take 40 mg Univers n 40 mg 2-18 by mouth ity of tablet 18:25: at [place] 21 bedtime. Medical Branch trazodone 2020-11 Yes [...] 2-18 by mouth ity of 18:25: at [place] 21 bedtime. Medical Branch atorvastati 2020-11 Yes 40mg Take 40 mg Univers n 40 mg 2-18 by mouth ity of tablet 18:25: at [place] 21 bedtime. Medical Branch trazodone 2020-11 Yes [...] 2-18 by mouth ity of 18:25: at [place] [address] bedtime. Medical Branch atorvastati 2020-11 Yes 40mg Take 40 mg Univers n 40 mg 2-18 by mouth ity of tablet 18:25: at [place] 21 bedtime. Medical Branch metoprolol 2020-11 Yes [...] Until Discontinu ed, Routine QUEtiapine 2020-11 Yes [id number] 25mg Take 1 Univers 25 mg 2-18 tablet by ity of tablet 00:00: mouth at [place] 00 bedtime as Medical needed Branch (agitation /insomnia) . QUEtiapine 2020-11 Yes [id number] 25mg Take 1 Univers 25 mg 2-18 tablet by ity of tablet 00:00: mouth at [place] 00 bedtime as Medical needed Branch (agitation /insomnia) . QUEtiapine 2020-11 Yes [id number] 25mg Take 1 Univers 25 mg 2-18 tablet by ity of tablet 00:00: mouth at [place] 00 bedtime as Medical needed Branch (agitation /insomnia) . QUEtiapine 2020-11 Yes [id number] 25mg Take 1 Univers 25 mg 2-18 tablet by ity of tablet 00:00: mouth at [place] 00 bedtime as Medical needed Branch (agitation /insomnia) . QUEtiapine 2020-11 Yes [id number] 25mg Take 1 Univers 25 mg 2-18 tablet by ity of tablet 00:00: mouth at [place] 00 bedtime as Medical needed Branch (agitation /insomnia) . isosorbide 2020-11- No [id number] 60mg Take 1 Univers mononitrate 2-18 01-18 tablet by it y of 60 mg 24 hr 00:00: 05:59 mouth 2 [place] tablet 00 :00 (two) Medical times Branch daily for 30 days. metoprolol 2020-11- No [id number] 37.5mg Take 1.5 Univers succinate 2-18 01-18 tablets by ity of XL 25 mg 24 00:00: 05:59 mouth 2 [place] hr tablet 00 :00 (two) Medical times Branch daily for 30 days. isosorbide 2020-11- No [id number] 60mg Take 1 Univers mononitrate 2-18 01-18 tablet by it y of 60 mg 24 hr 00:00: 05:59 mouth 2 [place] tablet 00 :00 (two) Medical times Branch daily for 30 days. metoprolol 2020-11 No [id number] 37.5mg Take 1.5 Univers succinate 2-18 -18 tablets by ity of XL 25 mg 24 00:00: 05:59 mouth 2 [place] hr tablet 00 :00 (two) Medical times Branch daily for 30 days. isosorbide 2020-11- No [id number] 60mg Take 1 Univers mononitrate 2-18 -18 tablet by it y of 60 mg 24 hr 00:00: 05:59 mouth 2 [place] tablet 00 :00 (two) Medical times Branch daily for 30 days. metoprolol 2020-11 No [id number] 37.5mg Take 1.5 Univers succinate -18 12-03 [...] mg 03:00: First dose [place] 00 on [facility] Medical 10/31/21 Branch at 2100, Until Discontinu ed, Routine atorvastati 2020-11 Yes 40mg 40 mg, Univ ers n (LIPITOR) 2-17 Oral, QHS, it y of tablet 40 03:00: First dose [place] mg 00 on [facility] Medical 10/31/21 Branch at 2100, Until Discontinu ed, Routine clopidogreL 2020-11 Yes 75mg 75 mg, Univ ers (PLAVIX) 2-16 Oral, ity of tablet 75 23:30: DAILY, [place] mg 00 First dose Medical on [facility] Branch 10/31/21 at 1730, Until Discontinu ed, Routine sulfur 2020-11- No [id number] 5mL 5 mL, Unive rs hexafluorid 01-01- Intravenou i ty of e microsphr 17:00: 17:00 s, ONCE, 1 [place] (LUMASON) 00 :00 dose, On Medica l injection 5 Madhavi Branch mL 10/31/21 at 1100, Routine
team member approving Restricted medication : MEGGAN CAMARA isosorbide 2020-11- No 120mg 120 mg, Un mel mononitrate 01-01- Oral, ity of (IMDUR) 24 15:00: 14:16 DAILY, [place] hr tablet 00 :38 First dose Medi birdie 120 mg on [facility] Branch 10/31/21 at 0900, Until Discontinu ed, Routine Sliding 2020-11 Yes Subcutaneo Univ ers Scale 2-16 us, AC+HS, ity of Insulin-Reg 13:30: First dose [place] ular + Fsbg 00 on [facility] Medica l Testing 10/31/21 Branch at [...] ity of mg 08:45: 08:15 ONCE, 1 [place] 00 :00 dose, On Medical Madhavi Branch 10/31/21 at 0245, Routine glucagon 2020-11 Yes 1mg 1 mg, Univers (GLUCAGEN -16 Intramuscu ity of DIAGNOSTIC 08:16: lar, PRN, [place] KIT) 15 Starting Medical injection 1 on [facility] Branch mg 10/31/21 at 0216, Until [...] IV Push, ity of mg 07:36: 05[facility]31 [id number] [place] 09 :07 Starting Medical on [facility] Branch 10/31/21 at 0136, Until Madhavi [...] IV Push, ity of (PF)) 05:32: Q6HPRN, [place] injection 4 10 Starting Medi birdie mg on Thu Branch 10/30/21 at 2332, Until Discontinu ed, Routine, Nausea and Vomiting (N/V) acetaminoph 2020-11 Yes 650mg 650 mg, Un mel en 16 Oral, ity of (TYLENOL) 05:31: Q6HPRN, [place] tablet 650 56 Starting Medic al mg on Thu Branch 10/30/21 at 2331, Until Discontinu ed, Routine, Pain (scale 1-3) acetaminoph 2020-11 Yes [id number] 1{tbl} 1 tablet, Univers en-codeine 2-16 Oral, ity of (TYLENOL 05:29: Q6HPRN, [place] #3) 300-30 29 Starting Medic al mg [...] ity of mg 23:15: 22:23 ONCE, 1 [place] 00 :00 dose, Madhavi Medical 04/25/21 at Branch 1815, STAT acetaminoph 2020-2020- No 1{tbl} 1 tablet, Univers en-codeine 6-10 06-10 Oral, ity of (TYLENOL 19:00: 17:52 ONCE, 1 [place] #3) 300-30 00 :00 dose, Madhavi Medi birdie mg tablet 1 04/25/21 at [place] tablet 1400, [place] cyclobenzap 2020- No 10mg 10 mg, Uni vers rine 6-10 06-10 Oral, ONCE ity of (FLEXERIL) 19:00: 17:52 NOW, 1 [place] tablet 10 00 :00 dose, Madhavi Medic al mg 04/25/21 at Branch 1400, [place] cyclobenzap Yes [id number] 5mg Take 1 Univers rine 5 mg 6-10 tablet by ity o f tablet 00:00: mouth 3 [place] 00 (three) Medical times Branch daily. cyclobenzap Yes [id number] 5mg Take 1 Univers rine 5 mg 6-10 tablet by ity o f tablet 00:00: mouth 3 [place] 00 (three) Medical times Branch daily. cyclobenzap Yes [id number] 5mg Take 1 Univers rine 5 mg [...] left sided low back pain cyclobenzap Yes [id number] 5mg Take 1 Univers rine 5 mg [...] left sided low back pain cyclobenzap Yes [id number] 5mg Take 1 Univers rine 5 mg 6-10 tablet by ity o f tablet 00:00: mouth 3 [place] 00 (three) Medical times Branch daily. cyclobenzap 2021- No [id number] 5mg Take 1 Univers rine 5 mg [...] Discontinu ed, Routine aspirin 81 2020-0 Yes [id number] 81mg Take 1 U nivers mg chewable 5- tablet by ity of tablet 00:00: mouth [place] 00 daily with Medical breakfast. Branch furosemide 2020-0 Yes [id number] 20mg Take 1 U nivers 20 mg 5-09 tablet by ity of tablet 00:00: mouth [place] 00 daily. Medical Branch aspirin 81 2020-0 Yes [id number] 81mg Take 1 U nivers mg chewable 5-09 tablet by ity of tablet 00:00: mouth [place] 00 daily with Medical breakfast. Branch furosemide 2020-0 Yes [id number] 20mg Take 1 U nivers 20 mg 5-09 tablet by ity of tablet 00:00: mouth [place] 00 daily. Medical Branch aspirin 81 2020-0 Yes [id number] 81mg Take 1 U nivers mg chewable 5-09 tablet by ity of tablet 00:00: mouth [place] 00 daily with Medical breakfast. Branch furosemide 2020-0 Yes [id number] 20mg Take 1 U nivers 20 mg 5-09 tablet by ity of tablet 00:00: mouth [place] 00 daily. Medical Branch aspirin 81 2020-0 Yes [id number] 81mg Take 1 U nivers mg chewable 5-09 tablet by ity of tablet 00:00: mouth [place] 00 daily with Medical breakfast. Branch furosemide 2020-0 Yes [id number] 20mg Take 1 U nivers 20 mg 5-09 tablet by ity of tablet 00:00: mouth [place] 00 daily. Medical Branch aspirin 81 2020-0 Yes [id number] 81mg Take 1 U nivers mg chewable 5-09 tablet by ity of tablet 00:00: mouth [place] 00 daily with Medical breakfast. Branch furosemide 2020-0 Yes [id number] 20mg Take 1 U nivers 20 mg 5-09 tablet by ity of tablet 00:00: mouth [place] 00 daily. Medical Branch aspirin 81 2020-0 Yes [id number] 81mg Take 1 U nivers mg chewable 5-09 tablet by ity of tablet 00:00: mouth [place] 00 daily with Medical breakfast. Branch furosemide 2020-0 Yes [id number] 20mg Take 1 U nivers 20 mg 5-09 tablet by ity of tablet 00:00: mouth [place] 00 daily. Medical Branch aspirin 81 2020-0 Yes [id number] 81mg Take 1 U nivers mg chewable 5-09 tablet by ity of tablet 00:00: mouth [place] 00 daily with Medical breakfast. Branch furosemide 2020-0 Yes [id number] 20mg Take 1 U nivers 20 mg 5-09 tablet by ity of tablet 00:00: mouth [place] 00 daily. Medical Branch aspirin 81 2020-0 Yes [id number] 81mg Take 1 U nivers mg chewable 5-09 tablet by ity of tablet 00:00: mouth [place] 00 daily with Medical breakfast. Branch furosemide 2020-0 Yes [id number] 20mg Take 1 U nivers 20 mg 5-09 tablet by ity of tablet 00:00: mouth [place] 00 daily. Medical Branch aspirin 81 2020-0 Yes [id number] 81mg Take 1 U nivers mg chewable 5-09 tablet by ity of tablet 00:00: mouth [place] 00 daily with Medical breakfast. Branch furosemide 2020-0 Yes [id number] 20mg Take 1 U nivers 20 mg 5-09 tablet by ity of tablet 00:00: mouth [place] 00 daily. Medical Branch aspirin 81 2020-0 2021- No [id number] 81mg Take 1 Univers mg chewable 5- 12-18 tablet by it y of tablet 00:00: 00:00 mouth [place] 00 :00 daily with Medical breakfast. Branch furosemide 2020-0 2021- No [id number] 20mg Take 1 Univers 20 mg 5-09 12-18 tablet by ity of tablet 00:00: 00:00 mouth [place] 00 :00 daily. Medical Branch isosorbide 2020-0 2020- No [id number] 90mg Take 3 Univers mononitrate 5- 05-08 tablets by i ty of 30 mg 24 hr 00:00: 00:00 mouth [place] tablet 00 :00 daily. Medical Branch isosorbide 2020-0 2020- No [id number] 90mg Take 3 Univers mononitrate 5-09 05-08 tablets by i ty of 30 mg 24 hr 00:00: 00:00 mouth [place] tablet 00 :00 daily. Medical Branch maalox/lido 2020-0 2020- No [facility] 05-08 Oral, ity of %viscous 20:45: 20:56 ONCE, 1: 00 :00 dose, Fri Medical suspension 03/23/20 at [facility] (COMPOUNDED 1545, ) Routine maalox/lido 2020-0 2020- No 5mL 5 mL, [facility] sydni 2 508 05-08 Oral, ity of %viscous 20:45: 20:56 ONCE, 1: 00 :00 dose, Fri Medical suspension 03/23/20 at [facility] (COMPOUNDED 1545, ) Routine acetaminoph [...] IV Push, ity of mg 07:59: Q4HPRN, [place] 14 Starting Medical 03/23/20 Branch at 0259, Until Discontinu ed, Routine, Chest pain morpHINE 2020-0 Yes 2mg 2 mg, Slow Uni vers injection 2 03-23 IV Push, ity of mg 07:59: Q4HPRN, [place] 14 Starting Medical 03/23/20 Branch at 0259, Until Discontinu ed, Routine, Chest pain magnesium 2020-0 2020- No 2g 2 g, IV Univ ers sulfate in 03-23 Piggyback, it y of water 2 07:45: 07:49 ONCE, 1 [place] gram/50 mL 00 :00 dose, Fri Medi birdie (4 %) 03/23/20 at [place] infusion 2 0245, g Routine KCL 2020-0 [...] Fri Medi birdie (4 %) 03/23/20 at [place] infusion 2 0245, g Routine KCL 2020-0 [...] -08 Oral, ity of (TYLENOL) 02:51: Q6HPRN, [employer] tablet 650 29 Starting Medic al mg Madhavi 03/22/20 Branch at 215, Until Discontinu ed, Routine, Pain (scale 1-3) acetaminoph 2020-0 Yes 650mg 650 mg, Un mel en 08 Oral, ity of (TYLENOL) 02:51: Q6HPRN, [employer] tablet 650 29 Starting Medic al mg [...] Medical tablet 0.4 doses, Branch mg Starting [facility] 03/22/20 at 2138, Until Discontinu ed, ADAMA, Chest pain aspirin 2020-0 2020- No 324mg 324 mg, Unive rs chewable 5-08 05-08 Oral, ity of tablet 324 02:37: 02:51 ONCE, 1 [place] mg 00 :00 dose, Madhavi [facility] 03/22/20 at Branch 2145, ADAMA aspirin 2020-0 2020- No 324mg 324 mg, Unive rs chewable 5-08 05-08 Oral, ity of tablet 324 02:37: 02:51 ONCE, 1 [place] mg 00 :00 dose, [facility] 03/22/20 at Branch 2145, [place] isosorbide 2020-0 Yes [id number] 90mg Take 1.5 Univers mononitrate 5-08 tablets by it y of 60 mg 24 hr 00:00: mouth [place] tablet 00 daily. [facility] isosorbide 2020-0 Yes [id number] 90mg Take 1.5 Univers mononitrate 5-08 tablets by it y of 60 mg 24 hr 00:00: mouth [place] tablet 00 daily. [facility] isosorbide 2020-0 Yes [id number] 90mg Take 1.5 Univers mononitrate 5-08 tablets by it y of 60 mg 24 hr 00:00: mouth [place] tablet 00 daily. [facility] isosorbide 2020-0 Yes [id number] 90mg Take 1.5 Univers mononitrate 5-08 tablets by it y of 60 mg 24 hr 00:00: mouth [place] tablet 00 daily. [facility] isosorbide 2020-0 Yes [id number] 90mg Take 1.5 Univers mononitrate 5-08 tablets by it y of 60 mg 24 hr 00:00: mouth [place] tablet 00 daily. [facility] isosorbide 2020-0 Yes [id number] 90mg Take 1.5 Univers mononitrate 5-08 tablets by it y of 60 mg 24 hr 00:00: mouth [place] tablet 00 daily. [facility] isosorbide 2020-0 Yes [id number] 90mg Take 1.5 Univers mononitrate 5-08 tablets by it y of 60 mg 24 hr 00:00: mouth [place] tablet 00 daily. [facility] isosorbide 2020-0 Yes [id number] 90mg Take 1.5 Univers mononitrate 5-08 tablets by it y of 60 mg 24 hr 00:00: mouth [place] tablet 00 daily. Medical Branch isosorbide 2019-0 Yes [id number] 90mg Take 1.5 Univers mononitrate 5-08 tablets by it y of 60 mg 24 hr 00:00: mouth [place] tablet 00 daily. Medical Branch isosorbide 2019-0 2021- No [id number] 90mg Take 1.5 Univers mononitrate 5-08 12-18 tablets by i ty of 60 mg 24 hr 00:00: 00:00 mouth [place] tablet 00 :00 daily. Medical Branch acetaminoph 2020- No [id number] 975mg Take 3 Univers en 325 mg 5-08 05-19 tablets by ity of tablet 00:00: 04:59 mouth [place] 00 :00 every 8 Medical (eight) Branch hours for 10 days. acetaminoph 2020- No [id number] 975mg Take 3 Univers en 325 mg 5-08 05-19 tablets by ity of tablet 00:00: 04:59 mouth [place] 00 :00 every 8 Medical (eight) Branch hours for 10 days. acetaminoph 2020- No [id number] 975mg Take 3 Univers en 325 mg 5-08 05-19 tablets by ity of tablet 00:00: 04:59 mouth [place] 00 :00 every 8 Medical (eight) Branch hours for 10 days. acetaminoph 2020- No [id number] 975mg Take 3 Univers en 325 mg 5-08 05-19 tablets by ity of tablet 00:00: 04:59 mouth [place] 00 :00 every 8 Medical (eight) Branch hours for 10 days. acetaminoph 2020- No [id number] 975mg Take 3 Univers en 325 mg 5-08 05-19 tablets by ity of tablet 00:00: 04:59 mouth [place] 00 :00 every 8 Medical (eight) Branch hours for 10 days. lidocaine 5 2020- No [id number] 1{patch Apply 1 Univers % (700 5-08 05-09 } Patch to ity of mg/patch) 00:00: 04:59 area(s) [place] patch 00 :00 once now Medical for 1 Branch dose. lidocaine 5 2020- No [id number] 1{patch Apply 1 Univers % (700 5-08 05-09 } Patch to ity of mg/patch) 00:00: 04:59 area(s) [place] patch 00 :00 once now Medical for 1 Branch dose. lidocaine 5 2019-0 2020- No [id number] 1{patch Apply 1 Univers % (700 5-08 05-08 } Patch to ity of mg/patch) 00:00: 00:00 area(s) [place] patch 00 :00 once now Medical for 1 Branch dose. lidocaine 5 2019-0 2020- No [id number] 1{patch Apply 1 Univers % (700 03-23-08 } Patch to ity of mg/patch) 00:00: 00:00 area(s) [place] patch 00 :00 once now Medical for 1 Branch dose. glipiZIDE 2020-0 Yes 5mg 5 mg, Univers (GLUCOTROL) 4-23 Oral, ity of tablet 5 mg 14:00: DAILY, [place] 00 First dose Medical on [facility] 03/08/20 at 0900[facility] spironolact 2020-0 2020- No [id number] 12.5mg Take 0.5 Univers one 25 mg 4-23 05-24 tablets by ity of tablet 00:00: 04:59 mouth [place] 00 :00 daily for Medical 30 days. [place] spironolact 2020-0 2020- No [id number] 12.5mg Take 0.5 Univers one 25 mg 4-23 05-24 tablets by ity of tablet 00:00: 04:59 mouth [place] 00 :00 daily for Medical 30 days. [place] spironolact 2020-0 2020- No [id number] 12.5mg Take 0.5 Univers one 25 mg 4-23 05-24 tablets by ity of tablet 00:00: 04:59 mouth [place] 00 :00 daily for Medical 30 days. [place] spironolact 2020-0 2020- No [id number] 12.5mg Take 0.5 Univers one 25 mg 4-23 05-07 tablets by ity of tablet 00:00: 00:00 mouth [place] 00 :00 daily for Medical 30 days. [place] spironolact 2020-0 2020- No [id number] 12.5mg Take 0.5 Univers one 25 mg [...] mouth ity of tablet 20:15: 00:00 daily. [place] 29 :00 Medical Branch atorvastati 2020-0 2020- [...] Discontinu ed, Routine, Insomnia Insulin 2020-0 Yes [id number] 10U inject 10 Univers Glargine 4-22 Units ity of 100 unit/mL 00:00: under the [place] (3 mL) 00 skin at Medical injection bedtime. Branch temazepam 2020-0 Yes [id number] 15mg Take 1 Un mel 15 mg 4-22 capsule by ity of capsule 00:00: mouth at [place] 00 bedtime as Medical needed for Branch Insomnia. furosemide 2020-0 Yes [id number] 40mg Take 1 Univers 40 mg 4-22 tablet by ity of tablet 00:00: mouth [place] 00 every Medical morning Branch and evening. Magnesium 2020-0 Yes [id number] 400mg Take 400 Univers Oxide 420 4-22 mg by ity of mg Tab 00:00: mouth [place] 00 daily. Medical Branch potassium 2020-0 Yes [id number] 20meq Take 20 Univers chloride 20 4-22 mEq by ity of mEq packet 00:00: mouth [place] 00 daily. Medical Take with Branch lasix in the morning isosorbide 2020-0 Yes [id number] 15mg Take 0.5 Univers mononitrate 4-22 tablets by it y of 30 mg 24 hr 00:00: mouth [place] tablet 00 daily. Medical Hold if Branch systolic blood pressure less than 120 Insulin 2020-0 Yes [id number] 10U inject 10 Univers Glargine 4-22 Units ity of 100 unit/mL 00:00: under the [place] (3 mL) 00 skin at Medical injection bedtime. Branch temazepam 2020-0 Yes [id number] 15mg Take 1 Un mel 15 mg 4-22 capsule by ity of capsule 00:00: mouth at [place] 00 bedtime as Medical needed for Branch Insomnia. furosemide 2020-0 Yes [id number] 40mg Take 1 Univers 40 mg 4-22 tablet by ity of tablet 00:00: mouth [place] 00 every Medical morning Branch and evening. Magnesium 2020-0 Yes [id number] 400mg Take 400 Univers Oxide 420 4-22 mg by ity of mg Tab 00:00: mouth [place] 00 daily. Medical Branch potassium 2020-0 Yes [id number] 20meq Take 20 Univers chloride 20 4-22 mEq by ity of mEq packet 00:00: mouth [place] 00 daily. Medical Take with Branch lasix in the morning isosorbide 2020-0 Yes [id number] 15mg Take 0.5 Univers mononitrate 4-22 tablets by it y of 30 mg 24 hr 00:00: mouth [place] tablet 00 daily. Medical Hold if Branch systolic blood pressure less than 120 Insulin 2020-0 Yes [id number] 10U inject 10 Univers Glargine 4-22 Units ity of 100 unit/mL 00:00: under the [place] (3 mL) 00 skin at Medical injection bedtime. Branch temazepam 2020-0 Yes [id number] 15mg Take 1 Un mel 15 mg 4-22 capsule by ity of capsule 00:00: mouth at [place] 00 bedtime as Medical needed for Branch Insomnia. furosemide 2020-0 Yes [id number] 40mg Take 1 Univers 40 mg 4-22 tablet by ity of tablet 00:00: mouth [place] 00 every Medical morning Branch and evening. Magnesium 2020-0 Yes [id number] 400mg Take 400 Univers Oxide 420 4-22 mg by ity of mg Tab 00:00: mouth [place] 00 daily. Medical Branch potassium 2020-0 Yes [id number] 20meq Take 20 [facility] chloride 20 4-22 mEq by ity of mEq packet 00:00: mouth [place] 00 daily. Medical Take with Branch lasix in the morning isosorbide 2020-0 Yes [id number] 15mg Take 0.5 [facility] mononitrate 4-22 tablets by it y of 30 mg 24 hr 00:00: mouth [place] tablet 00 daily. Medical Hold if Branch systolic blood pressure less than 120 Insulin 2020-0 Yes [id number] 10U inject 10 [facility] Glargine 4-22 Units ity of 100 unit/mL 00:00: under the [place] (3 mL) 00 skin at Medical injection bedtime. Branch Magnesium 2020-0 Yes [id number] 400mg Take 400 [facility] Oxide 420 4-22 mg by ity of mg Tab 00:00: mouth [place] 00 daily. Medical Branch vitamin 2020-0 2020- No [id number] 1000ug Take 1 [facility] B-12 1,000 4-22 07-22 tablet by ity of mcg tablet 00:00: 04:59 mouth [place] 00 :00 daily for Medical 90 days. Branch vitamin 2020-0 2020- No [id number] 1000ug Take 1 [facility] B-12 1,000 4-22 07-22 tablet by ity of mcg tablet 00:00: 04:59 mouth [place] 00 :00 daily for Medical 90 days. Branch vitamin 2019-0 2020- No [id number] 1000ug Take 1 [facility] B-12 1,000 4-06 06-22 tablet by ity of mcg tablet 00:00: 04:59 mouth [place] 00 :00 daily for Medical 90 days. Branch vitamin 2019-0 2020- No [id number] 1000ug Take 1 [facility] B-12 1,000 4-06 06-22 tablet by ity of mcg tablet 00:00: 04:59 mouth [place] 00 :00 daily for Medical 90 days. Branch glipiZIDE 5 2019- 2020- No [id number] 2.5mg Take 0.5 [facility] mg tablet 03-07 tablets by ity of 00:00: 04:59 mouth 2 [place] 00 :00 (two) Medical times Branch daily before breakfast and dinner for 30 days. metoprolol 2019- 2020- No [id number] 25mg Take 1 [facility] succinate 03-07 tablet by ity of XL 25 mg 24 00:00: 04:59 mouth 2 [place] hr tablet 00 :00 (two) Medical times Branch daily for 30 days. OLANZapine 2019- 2020- No [id number] 2.5mg Take 1 [facility] 2.5 mg 03-07 tablet by ity of tablet 00:00: 04:59 mouth at [place] 00 :00 bedtime Medical for 30 Branch days. ranolazine 2019-0 2020- No [id number] 1000mg Take 2 [facility] 500 mg 12 03-07 tablets by ity of hr tablet 00:00: 04:59 mouth [place] 00 :00 every 12 Medical (twelve) Branch hours for 30 days. aspirin 81 2019- 2020- No [id number] 81mg Take 1 [facility] mg chewable 03-07-23 tablet by it y of tablet 00:00: 04:59 mouth [place] 00 :00 daily with Medical breakfast Branch for 30 days. atorvastati 2019-0 2020- No [id number] 40mg Take 1 Univers n 40 mg 03-07- tablet by ity of tablet 00:00: 04:59 mouth at [place] 00 :00 bedtime Medical for 30 Branch days. glipiZIDE 5 2019-0 2020- No [id number] 2.5mg Take 0.5 [facility] mg tablet 4-22 05-23 tablets by ity of 00:00: 04:59 mouth 2 [place] 00 :00 (two) Medical times Branch daily before breakfast and dinner for 30 days. metoprolol 2019- 2020- No [id number] 25mg Take 1 [facility] succinate 4-22 05-23 tablet by ity of XL 25 mg 24 00:00: 04:59 mouth 2 [place] hr tablet 00 :00 (two) Medical times Branch daily for 30 days. OLANZapine 2019- 2020- No [id number] 2.5mg Take 1 [facility] 2.5 mg 4-22 05-23 tablet by ity of tablet 00:00: 04:59 mouth at [place] 00 :00 bedtime Medical for 30 Branch days. ranolazine 2019- 2020- No [id number] 1000mg Take 2 [facility] 500 mg 12 4-22 05-23 tablets by ity of hr tablet 00:00: 04:59 mouth [place] 00 :00 every 12 Medical (twelve) Branch hours for 30 days. aspirin 81 2019- 2020- No [id number] 81mg Take 1 [facility] mg chewable 4-22 05-23 tablet by it y of tablet 00:00: 04:59 mouth [place] 00 :00 daily with Medical breakfast Branch for 30 days. atorvastati 2019-0 2020- No [id number] 40mg Take 1 [facility] n 40 mg 4-22 05-23 tablet by ity of tablet 00:00: 04:59 mouth at [place] 00 :00 bedtime Medical for 30 Branch days. glipiZIDE 5 2019- 2020- No [id number] 2.5mg Take 0.5 [facility] mg tablet - 05-23 tablets by ity of 00:00: 04:59 mouth 2 [place] 00 :00 (two) Medical times Branch daily before breakfast and dinner for 30 days. metoprolol 2019-0 2020- No [id number] 25mg Take 1 [facility] succinate 4-22 05-23 tablet by ity of XL 25 mg 24 00:00: 04:59 mouth 2 [place] hr tablet 00 :00 (two) Medical times Branch daily for 30 days. OLANZapine 2019-0 2020- No [id number] 2.5mg Take 1 [facility] 2.5 mg 4-22 05-23 tablet by ity of tablet 00:00: 04:59 mouth at [place] 00 :00 bedtime Medical for 30 Branch days. ranolazine 2020- 2020- No [id number] 1000mg Take 2 [facility] 500 mg 12 4-22 05-23 tablets by ity of hr tablet 00:00: 04:59 mouth [place] 00 :00 every 12 Medical (twelve) Branch hours for 30 days. aspirin 81 2020- No [id number] 81mg Take 1 [facility] mg chewable 4-22 05-23 tablet by it y of tablet 00:00: 04:59 mouth [place] 00 :00 daily with Medical breakfast Branch for 30 days. atorvastati 2019- 2020- No [id number] 40mg Take 1 [facility] n 40 mg 4-22 05-23 tablet by ity of tablet 00:00: 04:59 mouth at [place] 00 :00 bedtime Medical for 30 Branch days. glipiZIDE 5 2020- No [id number] 2.5mg Take 0.5 [facility] mg tablet 03-07 05-23 tablets by ity of 00:00: 04:59 mouth 2 [place] 00 :00 (two) Medical times Branch daily before breakfast and dinner for 30 days. metoprolol 2019-2019- No [id number] 25mg Take 1 [facility] succinate 4-22 05-23 tablet by ity of XL 25 mg 24 00:00: 04:59 mouth 2 [place] hr tablet 00 :00 (two) Medical times Branch daily for 30 days. ranolazine 2019- 2020- No [id number] 1000mg Take 2 [facility] 500 mg 12 4-22 05-23 tablets by ity of hr tablet 00:00: 04:59 mouth [place] 00 :00 every 12 Medical (twelve) Branch hours for 30 days. atorvastati 2019- 2020- No [id number] 40mg Take 1 [facility] n 40 mg 4-22 05-23 tablet by ity of tablet 00:00: 04:59 mouth at [place] 00 :00 bedtime Medical for 30 Branch days. furosemide 2019- 2020- No [id number] 40mg Take 1 [facility] 40 mg 4-22 05-08 tablet by ity of tablet 00:00: 00:00 mouth [place] 00 :00 every Medical morning Branch and evening. aspirin 81 2019- 2020- No [id number] 81mg Take 1 [facility] mg chewable 4-22 05-08 tablet by it y of tablet 00:00: 00:00 mouth [place] 00 :00 daily with Medical breakfast Branch for 30 days. isosorbide 2019- No [id number] 15mg Take 0.5 [facility] mononitrate 03-07-08 tablets by i ty of 30 mg 24 hr 00:00: 00:00 mouth [place] tablet 00 :00 daily. Medical Hold if Branch systolic blood pressure less than 120 Insulin 2019- No [id number] 10U inject 10 [facility] Glargine 03-07 05-08 Units ity of 100 unit/mL 00:00: 00:00 under the [place] (3 mL) 00 :00 skin at Medical injection bedtime. Branch glipiZIDE 5 2019- No [id number] 2.5mg Take 0.5 [facility] mg tablet 03-07-08 tablets by ity of 00:00: 00:00 mouth 2 [place] 00 :00 (two) Medical times Branch daily before breakfast and dinner for 30 days. metoprolol 2019- No [id number] 25mg Take 1 [facility] succinate 03-07-08 tablet by ity of XL 25 mg 24 00:00: 00:00 mouth 2 [place] hr tablet 00 :00 (two) Medical times Branch daily for 30 days. ranolazine 2019- No [id number] 1000mg Take 2 [facility] 500 mg 12 03-07-08 tablets by ity of hr tablet 00:00: 00:00 mouth [place] 00 :00 every 12 Medical (twelve) Branch hours for 30 days. furosemide 2019-2019- No [id number] 40mg Take 1 [facility] 40 mg 03-07 05-08 tablet by ity of tablet 00:00: 00:00 mouth [place] 00 :00 every Medical morning Branch and evening. aspirin 81 2019- 2020- No [id number] 81mg Take 1 [facility] mg chewable - 05-08 tablet by it y of tablet 00:00: 00:00 mouth [place] 00 :00 daily with Medical breakfast Branch for 30 days. atorvastati 2019- 2020- No [id number] 40mg Take 1 [facility] n 40 mg - 05-08 tablet by ity of tablet 00:00: 00:00 mouth at [place] 00 :00 bedtime Medical for 30 Branch days. Magnesium 2019-2019- No [id number] 400mg Take 400 [facility] Oxide 420 - 05-08 mg by ity of mg Tab 00:00: 00:00 mouth [place] 00 :00 daily. Medical Branch vitamin 2019-2019- No [id number] 1000ug Take 1 [facility] B-12 1,000 4-22 05-08 tablet by ity of mcg tablet 00:00: 00:00 mouth [place] 00 :00 daily for Medical 90 days. Branch isosorbide 2019- No [id number] 15mg Take 0.5 [facility] mononitrate 4-22 05-08 tablets by i ty of 30 mg 24 hr 00:00: 00:00 mouth [place] tablet 00 :00 daily. Medical Hold if Branch systolic blood pressure less than 120 OLANZapine 2019-2019- No [id number] 2.5mg Take 1 [facility] 2.5 mg 4-22 05-07 tablet by ity of tablet 00:00: 00:00 mouth at [place] 00 :00 bedtime Medical for 30 Branch days. temazepam 2019- No [id number] 15mg Take 1 U nivers 15 mg 4-22 05-07 capsule by ity of capsule 00:00: 00:00 mouth at [place] 00 :00 bedtime as Medical needed for Branch Insomnia. potassium 2019- No [id number] 20meq Take 20 [facility] chloride 20 4-22 05-07 mEq by ity o f mEq packet 00:00: 00:00 mouth [place] 00 :00 daily. Medical Take with Branch lasix in the morning OLANZapine 2019- No [id number] 2.5mg Take 1 [facility] 2.5 mg 4-22 05-07 tablet by ity of tablet 00:00: 00:00 mouth at [place] 00 :00 bedtime Medical for 30 Branch days. temazepam 2019- No [id number] 15mg Take 1 U nivers 15 mg 4-22 05-07 capsule by ity of capsule 00:00: 00:00 mouth at [place] 00 :00 bedtime as Medical needed for Branch Insomnia. potassium 2019- No [id number] 20meq Take 20 [facility] chloride 20 4-22 05-07 mEq by ity o f mEq packet 00:00: 00:00 mouth [place] 00 :00 daily. Medical Take with Branch lasix in the morning isosorbide 2019- No 60mg 60 mg, Univ ers mononitrate 4-21 04-21 Oral, ity of (IMDUR) 24 14:00: 13:43 DAILY, [place] hr tablet 00 :56 First dose Medi birdie 60 mg on [facility] 03/06/20 at 0900, Until Discontinu ed, Routine OLANZapine 2020-0 Yes 2.5mg 2.5 mg, Uni vers (ZyPREXA) 4-21 Oral, QHS, ity of tablet 2.5 02:00: First dose [place] mg 00 on [facility] 03/05/20 at Branch 2100, Until Discontinu ed, Routine insulin 2020-0 Yes 10U 10 Units, Unive rs glargine 4-21 Subcutaneo ity o f (LANTUS 02:00: us, QHS, [place] U-100) 00 First dose Medical injection on [facility] 10 Units 03/05/20 at 2100, Until Discontinu ed, Routine donepezil 2020-0 Yes 5mg 5 mg, Univers (ARICEPT) 4-21 Oral, QHS, ity of tablet 5 mg 02:00: First dose [place] 00 on [facility] 03/05/20 at Branch 2100, Until Discontinu ed, Routine atorvastati 2020-0 Yes 40mg 40 mg, Univ ers n (LIPITOR) 4-21 Oral, QHS, it y of tablet 40 02:00: First dose [place] mg 00 on [facility] 03/05/20 at Branch 2100, Until Discontinu ed, Routine isosorbide 2020-0 2020- No 30mg 30 mg, Univ ers mononitrate 03-05 04-20 Oral, ity of (IMDUR) 24 15:30: 15:21 ONCE, 1 [place] hr tablet 00 :00 dose, [facility] Medic al 30 mg 03/05/20 at Branch 1030, Routine spironolact 2020-0 Yes 12.5mg 12.5 mg, Univers one 4-20 Oral, ity of (ALDACTONE) 14:00: DAILY, [place] tablet 12.5 00 First dose Me dical mg on [facility] 03/05/20 at 0900, Until Discontinu ed, Routine memantine 2020-0 Yes 10mg 10 mg, Univer s (NAMENDA) 4-20 Oral, ity of tablet 10 14:00: DAILY, [place] mg 00 First dose Medical on [facility] 03/05/20 at 0900, Until Discontinu ed, Routine
team member approving Restricted medication : [facility] lisinopril 2020-0 2020- No 5mg 5 mg, [...] 500 mg 00 First dose Medical on [facility] Branch 03/05/20 at 0800, Until Discontinu ed, Routine metoprolol 2020-0 Yes 25mg 25 mg, Unive rs succinate -20 Oral, BID, ity of XL (TOPROL 13:00: First dose [place] XL) tablet 00 on [facility] Medical 25 mg 03/05/20 at Branch 0800, Until Discontinu ed, Routine magnesium 2020-0 Yes 400mg 400 mg, Univ ers oxide -20 Oral, BID, ity of (MAG-OX 13:00: First dose [place] 400) tablet 00 on [facility] Medica l 400 mg 03/05/20 at [...] dose [place] ular + Fsbg 00 on [facility] Medica l Testing 03/05/20 at Branch [...] IV ity of (D50W) 03:02: Push, PRN, [place] injection 42 Starting Medica l 25 mL [facility] 03/04/20 at 2202, Until Discontinu ed, ADAMA, Blood Glucose < or = 70 mg/dL and patient is unable to swallow or has mental status changes. furosemide 2020-0 Yes 40mg 40 mg, Unive rs (LASIX) 4-20 Oral, ity of tablet 40 03:00: QAM+PM, [place] mg 00 First dose Medical on [facility] 03/04/20 at 2200, Until Discontinu ed, Routine cyanocobala 2020-0 Yes 1000ug 1,000 mcg, Univers min -20 Subcutaneo ity of (VITAMIN 03:00: us, Q24H, [place] B12) 00 First dose Medical injection on [facility] 1,000 mcg 03/04/20 at 2200, Until Discontinu ed, Routine heparin 2020-0 Yes 5000U 5,000 Univers (porcine) 4-20 Units, ity of injection 03:00: Subcutaneo [place] 5,000 Units 00 us, Q8H, Medi birdie First dose Branch on [place] 03/04/20 at 2200, Until Discontinu ed, Routine ondansetron 2020-0 Yes 4mg 4 mg, Slow Univers (ZOFRAN 4-20 IV Push, ity of (PF)) 02:34: Q6HPRN, [place] injection 4 40 Starting Medi birdie mg [facility] 03/04/20 at 2134, Until Discontinu ed, Routine, Nausea and Vomiting (N/V) traMADol 2020-0 2020- No 50mg 50 mg, Univer s (ULTRAM) 4-20 04-22 Oral, ity of tablet 50 02:34: 02:33 Q8HPRN, [place] mg 23 :23 Starting Medical [facility] 03/04/20 at 2134, Until 03/06/20 at 2133, Routine, Pain (scale 4-6) acetaminoph 2019-0 Yes 650mg 650 mg, Un mel en 4-20 Oral, ity of (TYLENOL) 02:34: Q6HPRN, [place] tablet 650 20 Starting Medic al mg [facility] 03/04/20 at 2134, Until Discontinu ed, Routine, Pain (scale 1-3) lisinopril 2019-0 Yes [id number] 5mg Take 1 Univers 5 mg tablet 4-18 tablet by ity of 00:00: mouth [place] 00 daily. Medical Branch isosorbide 2019-0 Yes [id number] 30mg Take 1 [facility] mononitrate 4-18 tablet by ity of 30 mg 24 hr 00:00: mouth [place] tablet 00 daily. Medical Branch lisinopril 2019-0 Yes [id number] 5mg Take 1 [facility] 5 mg tablet 4-18 tablet by ity of 00:00: mouth [place] 00 daily. Medical Branch isosorbide 2019-0 Yes [id number] 30mg Take 1 [facility] mononitrate 4-18 tablet by ity of 30 mg 24 hr 00:00: mouth [place] tablet 00 daily. Medical Branch lisinopril 2019-0 2020- No [id number] 5mg Take 1 Univers 5 mg tablet 4-18 04-22 tablet by it y of 00:00: 00:00 mouth [place] 00 :00 daily. Medical Branch isosorbide 2019-0 2020- No [id number] 30mg Take 1 [facility] mononitrate 4-18 04-22 [...] ity of 12.5 mg 17:34: mouth 2 [place] 27 (two) Medical times Branch daily. MULTIVITAMI 2020-0 Yes Take by Un mel N ORAL 4-17 mouth. ity of 17:34: [place] [address] Medical Branch thiamine 2020-0 Yes 100mg Take 100 Univ ers (VITAMIN 4-17 mg by ity of B-1) 100 mg 17:34: mouth [place] tablet 27 daily. Medical Branch aspirin 81 2020-0 Yes 81mg Take 81 mg U nivers mg chewable 4-17 by mouth ity of tablet 17:34: daily. [place] [address] Medical Branch atorvastati 2020-0 Yes 40mg Take 40 mg Univers n 40 mg 4-17 by mouth ity of tablet 17:34: at [place] 27 bedtime. Medical Branch NaCl 0.9% 2020-0 [...] 4-17 mouth. ity of complex and 17:34: [place] C (B 27 Medical COMPLEX-VIT Branch RAZA C-FOLIC ACID ORAL) Cholecalcif 2020-0 Yes Take by Un mel ann, 4-17 mouth. ity of Vitamin D3, 17:34: [place] 2,000 unit 27 Medical capsule Branch metoprolol 2020-0 Yes 12.5mg Take 12.5 Univers tartrate 4-17 mg by ity of 12.5 mg 17:34: mouth 2 [place] 27 (two) Medical times Branch daily. MULTIVITAMI [...] 5 mg 02:00: First dose 00 on [facility] Medical 03/01/20 at Branch 2100[facility] 2020-0 Yes [id number] 40mg Take 1 Univers 40 mg 4-17 tablet by ity of tablet 00:00: mouth [place] 00 every Medical morning Branch and evening. potassium 2020-0 Yes [id number] 20meq Take 20 [facility] chloride 20 4-17 mEq by ity of mEq packet 00:00: mouth [place] 00 daily. Medical Branch vitamin 2020-0 Yes [id number] 1000ug Take 1 U nivers B-12 1,000 4-17 tablet by ity of mcg tablet 00:00: mouth [place] 00 daily. Medical Branch furosemide 2020-0 Yes [id number] 40mg Take 1 [facility] 40 mg 4-17 tablet by ity of tablet 00:00: mouth [place] 00 every Medical morning Branch and evening. potassium 2020-0 Yes [id number] 20meq Take 20 [facility] chloride 20 4-17 mEq by ity of mEq packet 00:00: mouth [place] 00 daily. Medical Branch vitamin 2020-0 Yes [id number] 1000ug Take 1 U nivers B-12 1,000 4-17 tablet by ity of mcg tablet 00:00: mouth [place] 00 daily. Medical Branch furosemide 2020-0 2020- No [id number] 40mg Take 1 [facility] 40 mg 03-02-22 tablet by ity of tablet 00:00: 00:00 mouth [place] 00 :00 every Medical morning Branch and evening. potassium 2020-0 2020- No [id number] 20meq Take 20 [facility] chloride 20 -02 03-22 mEq by ity o f mEq packet 00:00: 00:00 mouth [place] 00 :00 daily. Medical Branch vitamin 2020-0 2020- No [id number] 1000ug Take 1 Univers B-12 1,000 -02 03-22 tablet by ity of mcg tablet 00:00: 00:00 mouth [place] 00 :00 daily. Medical Branch cyanocobala 2020-0 Yes 1000ug 1,000 mcg, Univers min 4-16 Subcutaneo ity of (VITAMIN 20:45: us, Q24H, [place] B12) 00 First dose Medical injection on [facility] Branch 1,000 mcg 03/01/20 at 1545, Until Discontinu ed, Routine isosorbide 2020-0 Yes 30mg 30 mg, Unive rs mononitrate 4-16 Oral, ity of (IMDUR) 24 14:00: DAILY, [place] hr tablet 00 First dose Medi birdie 30 mg on [facility] Branch 03/01/20 at 0900, Until Discontinu ed, Routine memantine 2019-0 Yes 10mg 10 mg, Univer s (NAMENDA) 4-16 Oral, ity of tablet 10 14:00: DAILY, [place] mg 00 First dose Medical on [facility] Branch 03/01/20 at 0900, Until Discontinu ed, Routine
team member approving Restricted medication : MEGADC lisinopril 2020-0 Yes 5mg 5 mg, Univer s (PRINIVIL,Z 4-16 Oral, ity of ESTRIL) 14:00: DAILY, [place] tablet 5 mg 00 First dose Me dical on [facility] 03/01/20 at 0900, Until Discontinu ed, Routine enoxaparin 2020-0 Yes 30mg 30 mg, Unive rs (LOVENOX) 4-16 Subcutaneo ity of injection 14:00: [place], DAILY, [place] 30 mg 00 First dose Medical on [facility] 03/01/20 at 0900, Until Discontinu ed, Routine KCL 2020-0 2020- No 20meq 20 mEq, Univers (KLOR-CON 03-01 Oral, ity of M20) tablet 14:00: 13:26 DAILY, [place] 20 mEq 00 :35 First dose Medical on [facility] 03/01/20 at 0900, Until Discontinu ed, Routine KCL 2020-0 Yes 40meq 40 mEq, Univers (KLOR-CON 16 Oral, BID, ity of M20) tablet 13:30: First dose [place] 40 mEq 00 on [facility] 03/01/20 at Branch 0830, Until Discontinu ed, Routine magnesium 2020-0 2020- No 2g 2 g, IV Univ ers sulfate in 03-01 Infusion, ity of water 2 03:30: 03:30 ONCE, 1 [place] gram/50 mL 00 :00 dose, [facility] birdie (4 %) 2 g 02/29/20 at [facility] piggyback 2230 metoprolol 2020-0 2020- No 5mg 5 mg, Slow Univers (LOPRESSOR) 03-01 IV Push, ity of injection 5 03:30: 03:37 ONCE, 1 [place] mg 00 :00 dose, [facility] 02/29/20 at Branch 2230, ADAMA glipiZIDE 2020-0 Yes 5mg 5 mg, Univers (GLUCOTROL) 03-01 Oral, ity of tablet 5 mg 02:45: BIDAC, [place] 00 First dose Medical on [facility] 02/29/20 at 2145, Until Discontinu ed, Routine insulin 2020-0 Yes 10U 10 Units, Unive rs glargine 16 Subcutaneo ity o f (LANTUS 02:45: us, QHS, [place] U-100) 00 First dose Medical injection on [facility] Branch 10 Units 02/29/20 at 2145, Until Discontinu ed, Routine OLANZapine 2020-0 Yes 2.5mg 2.5 mg, Uni vers (ZyPREXA) 16 Oral, QHS, ity of tablet 2.5 02:45: First dose [place] mg 00 on [facility] 02/29/20 at Branch 2145, Until Discontinu ed, [...] 650 25 Starting Medic al mg Wed [place] 02/29/20 at 1857, Until Discontinu ed, Routine, Pain (scale 1-3) NaCl 0.9% 2019-2019- No 500mL at 999 Univ ers (NS) bolus 02-28- mL/hr, 500 it y of infusion 23:30: 23:37 mL, IV [place] 500 mL 00 :00 Infusion, Medical ONCE, 1 Branch dose, [facility] 02/29/20 at 1830, ADAMA acetaminoph 2019-2019- No 650mg 650 mg, U nivers en 02-2815 Oral, ity of (TYLENOL) 23:00: 22:36 ONCE, 1 [place] tablet 650 00 :00 dose, Thu Medi birdie mg 02/29/20 at Branch 1800, [facility] donepezil 5 2019-0 Yes 5mg Take 5 mg U nivers mg tablet 02-14 by mouth ity of 00:00: daily. [place] 00 [facility] Branch donepezil 5 2019-0 2020- No 5mg Take 5 mg Univers mg tablet 02-14 by mouth ity o f 00:00: 00:00 daily. [place] 00 :00 Medical Branch nitroglycer 2019- 2020- [...] N ORAL 3-03 mouth. ity of 23:00: [place] [address] Medical Branch thiamine 2020-0 Yes 100mg Take 100 Univ ers (VITAMIN 3-03 mg by ity of B-1) 100 mg 23:00: mouth [place] tablet 52 daily. Medical Branch aspirin 81 2020-0 Yes 81mg Take 81 mg U nivers mg chewable 3-03 by mouth ity of tablet 23:00: daily. [place] [address] Medical Branch atorvastati 2020-0 Yes 40mg Take 40 mg Univers n 40 mg 3-03 by mouth ity of tablet 23:00: at [place] 52 bedtime. Medical Branch NaCl 0.9% 2020-0 [...] 3-03 mouth. ity of Vitamin D3, 23:00: [place] 2,000 unit 52 Medical capsule Branch metoprolol 2020-0 Yes 12.5mg Take 12.5 Univers tartrate 3-03 mg by ity of 12.5 mg 23:00: mouth 2 [place] 52 (two) Medical times Branch daily. MULTIVITAMI 2020-0 Yes Take by Un mel N ORAL 3-03 mouth. ity of 23:00: [place] [address] Medical Branch thiamine 2020-0 Yes 100mg Take 100 Univ ers (VITAMIN 3-03 mg by ity of B-1) 100 mg 23:00: mouth [place] tablet 52 daily. Medical Branch aspirin 81 2020-0 Yes 81mg Take 81 mg U nivers mg chewable 3-03 by mouth ity of tablet 23:00: daily. [place] [address] Medical Branch atorvastati 2020-0 Yes 40mg Take 40 mg Univers n 40 mg 3-03 by mouth ity of tablet 23:00: at [place] [address] bedtime. Medical Branch NaCl 0.9% 2020-0 Yes 10mL Inject 10 Uni vers (NS) Soln 3-03 mL ity of 10 mL with 23:00: intravenou [place] sodium 52 sly once Medical chloride now. Branch 2.5 mEq/mL SolP 17.125 mEq memantine-d 2020-0 Yes 1{capsu Take 1 U nivers onepezil 3-03 le} capsule by ity o f (NAMZARIC) 23:00: mouth [place] 28-10 mg 52 daily. Medical CSpX Branch [...] by mouth ity of tablet 23:00: daily. [place] [address] Medical Branch atorvastati 2020-0 Yes 40mg Take 40 mg Univers n 40 mg 3-03 by mouth ity of tablet 23:00: at [place] [address] bedtime. Medical Branch NaCl 0.9% 2020-0 Yes [...] by ity of mEq packet 23:00: mouth [place] 52 daily. Medical Branch Cholecalcif 2020-0 Yes Take by Un mel ann, 3-03 mouth. ity of Vitamin D3, 23:00: [place] 2,000 unit 52 Medical capsule Branch metoprolol 2020-0 Yes 12.5mg Take 12.5 Univers tartrate 3-03 mg by ity of 12.5 mg 23:00: mouth 2 [place] 52 (two) Medical times Branch daily. MULTIVITAMI 2020-0 Yes Take by Un mel N ORAL 3-03 mouth. ity of 23:00: [place] [address] Medical Branch thiamine 2020-0 Yes 100mg Take 100 Univ ers (VITAMIN 3-03 mg by ity of B-1) 100 mg 23:00: mouth [place] tablet 52 daily. Medical Branch aspirin 81 2020-0 Yes 81mg Take 81 mg U nivers mg chewable 3-03 by mouth ity of tablet 23:00: daily. [address] Branch atorvastati 2020-0 Yes 40mg Take 40 mg Univers n 40 mg 3-03 by mouth ity of tablet 23:00: at [place] [address] bedtime. Medical Branch NaCl 0.9% 2019-0 Yes 10mL Inject 10 Uni vers (NS) Soln 3-03 mL ity of 10 mL with 23:00: intravenou [place] sodium 52 sly once Medical chloride now. [place] 2.5 mEq/mL SolP 17.125 mEq atorvastati 2019-0 Yes 40mg 40 mg, Univ ers n (LIPITOR) 3-03 Oral, QHS, it y of tablet 40 03:00: First dose [place] mg 00 on [facility] 01/16/20 at Branch 2100, Until Discontinu ed, Routine ranolazine 2019-0 2020- No [id number] 500mg Take 1 [facility] 500 mg 12 -01 17-03 tablet by ity of hr tablet 00:00: 04:59 mouth [place] 00 :00 every 12 Medical (twelve) Branch hours for 30 days. ranolazine 2020-0 2020- No [id number] 500mg Take 1 [facility] 500 mg 12 - 04-03 tablet by ity of hr tablet 00:00: 04:59 mouth [place] 00 :00 every 12 Medical (twelve) Branch hours for 30 days. ranolazine 2020-0 2020- No [id number] 500mg Take 1 [facility] 500 mg 12 3- 04-03 tablet by ity of hr tablet 00:00: 04:59 mouth [place] 00 :00 every 12 Medical (twelve) Branch hours for 30 days. ranolazine 2020-0 2020- No [id number] 500mg Take 1 [facility] 500 mg 12 [...] First dose [place] tablet 12.5 00 on [facility] Medica l mg 01/16/20 at Branch 0800, Until Discontinu ed, Routine Sliding 2020-0 Yes Subcutaneo Univ ers Scale 302 us, Q6H, ity of Insulin-Reg 12:00: First dose [place] ular + Fsbg 00 on [facility] Medica l Testing 01/16/20 at Branch [...] IV ity of (D50W) 10:52: Push, PRN, [place] injection 33 Starting Medica l 25 mL [...] IV Push, ity of (PF)) 07:55: Q6HPRN, [place] injection 4 01 Starting Medi birdie mg [facility] 01/16/20 Branch at 0155, Until Discontinu ed, Routine, Nausea and Vomiting (N/V) morpHINE 2019- No 2mg 2 mg, Slow Un mel injection 2 01-1503 IV Push, ity of mg 07:54: 07:53 Q6HPRN, [place] 55 :55 Starting Medical 01/16/20 Branch at 0154, Until Thu01/17/20 at 0153, Routine, Pain (scale 7-10) traMADol 2019-0 2020- No 50mg 50 mg, Univer s (ULTRAM) 01-15 03-04 Oral, ity of tablet 50 07:54: 07:53 [facility] Medical 01/16/20 Branch at 0154, Until Thu01/18/20 at 0153, Routine, Pain (scale 4-6) acetaminoph 2019-0 Yes 650mg 650 mg, Un mel en 01-15 Oral, ity of (TYLENOL) 07:54: [place], [place] tablet 650 44 Starting Medic al mg [facility] 01/16/20 Branch at 0154, Until Discontinu [...] 01/15/20 at 2345, ADAMA furosemide 2018-11 Yes [id number] 40mg Take 1 Univers 40 mg 0-26 tablet by ity of tablet 00:00: mouth [place] 00 daily. Medical Branch furosemide 2018-11 Yes [id number] 40mg Take 1 Univers 40 mg 0-26 tablet by ity of tablet 00:00: mouth [place] 00 daily. Medical Branch furosemide 2018-11 Yes [id number] 40mg Take 1 Univers 40 mg 0-26 tablet by ity of tablet 00:00: mouth [place] 00 daily. Medical Branch furosemide 2018-11 Yes [id number] 40mg Take 1 Univers 40 mg 0-26 tablet by ity of tablet 00:00: mouth [place] 00 daily. Medical Branch furosemide 2018-11 2020- No [id number] 40mg Take 1 Univers 40 mg 0-26 04-17 tablet by ity of tablet 00:00: 00:00 mouth [place] 00 :00 daily. Medical Branch magnesium 2018-11 Yes [id number] 400mg Take 400 Univers oxide 420 0-23 mg by ity of mg Tab 00:00: mouth [place] 00 daily. Medical Branch magnesium 2018-11 Yes [id number] 400mg Take 400 Univers oxide 420 0-23 mg by ity of mg Tab 00:00: mouth [place] 00 daily. Medical Branch magnesium 2018-11 Yes [id number] 400mg Take 400 Univers oxide 420 0-23 mg by ity of mg Tab 00:00: mouth [place] 00 daily. Medical Branch magnesium 2018-11 Yes [id number] 400mg Take 400 Univers oxide 420 0-23 mg by ity of mg Tab 00:00: mouth [place] 00 daily. Medical Branch magnesium 2019- Yes [id number] 400mg Take 400 Univers oxide 420 0-23 mg by ity of mg Tab 00:00: mouth [place] 00 daily. [facility] Branch magnesium 2019- Yes [id number] 400mg Take 400 Univers oxide 420 0-23 mg by ity of mg Tab 00:00: mouth [place] 00 daily. [facility] Branch magnesium 2018- 2020- No [id number] 400mg Take 400 Univers oxide 420 0-23 04-22 mg by ity of mg Tab 00:00: 00:00 mouth [place] 00 :00 daily. [facility] Branch Insulin 2019-0 Yes [id number] 30U inject 30 Univers Glargine 9-11 Units ity of 100 unit/mL 00:00: under the [place] (3 mL) 00 skin every Medical injection morning. Branch Insulin 2018-0 Yes [id number] 30U inject 30 Univers Glargine 9-11 Units ity of 100 unit/mL 00:00: under the [place] (3 mL) 00 skin every Medical injection morning. Branch Insulin 2018-0 Yes [id number] 30U inject 30 Univers Glargine 9-11 Units ity of 100 unit/mL 00:00: under the [place] (3 mL) 00 skin every Medical injection morning. Branch Insulin 2018-0 Yes [id number] 30U inject 30 Univers Glargine 9-11 Units ity of 100 unit/mL 00:00: under the [place] (3 mL) 00 skin every Medical injection morning. Branch Insulin 2019-0 Yes [id number] 30U inject 30 Univers Glargine 9-11 Units ity of 100 unit/mL 00:00: under the [place] (3 mL) 00 skin every Medical injection morning. Branch Insulin 2018-0 Yes [id number] 30U inject 30 Univers Glargine 9-11 Units ity of 100 unit/mL 00:00: under the [place] (3 mL) 00 skin every Medical injection morning. Branch Insulin 2018-0 Yes [id number] 30U inject 30 Univers Glargine 9-11 Units ity of 100 unit/mL 00:00: under the [place] (3 mL) 00 skin every Medical injection morning. Branch Insulin 2019-0 2020- No [id number] 30U inject 30 Univers Glargine 9-11 04-22 [...] mg under ity of 15:26: the skin. [place] [address] Medical Branch Cholecalcif 2018-0 Yes Take by Un mel ann, 5-10 mouth. ity of Vitamin D3, 15:26: [place] 2,000 unit 43 Medical capsule Branch metoprolol 0 Yes 12.5mg Take 12.5 Univers tartrate 5-10 mg by ity of 12.5 mg 15:26: mouth 2 [place] 43 (two) Medical times Branch daily. MULTIVITAMI Yes Take by Un mel N ORAL 5-10 mouth. ity of 15:26: [place] [address] Medical Branch thiamine 0 Yes 100mg Take 100 Univ ers (VITAMIN 5-10 mg by ity of B-1) 100 mg 15:26: mouth [place] tablet 43 daily. Medical Branch aspirin 81 0 Yes 81mg Take 81 mg U nivers mg chewable 5-10 by mouth ity of tablet 15:26: daily. [place] [address] Medical Branch atorvastati 0 Yes 40mg Take 40 mg Univers n 40 mg 5-10 by mouth ity of tablet 15:26: at [place] 43 bedtime. Medical Branch furosemide 0 Yes 40mg Take 40 mg U nivers 40 mg 5-10 by mouth ity of tablet 15:26: daily. [place] [address] Medical Branch NaCl 0.9% 2019-0 Yes 10mL [...] mg under ity of 15:26: the skin. [place] [address] Medical Branch Cholecalcif 2018-0 Yes Take by Un mel ann, 5-10 mouth. ity of Vitamin D3, 15:26: [place] 2,000 unit 43 Medical capsule Branch metoprolol 2018-0 Yes 12.5mg Take 12.5 Univers tartrate 5-10 mg by ity of 12.5 mg 15:26: mouth 2 [place] 43 (two) Medical times Branch daily. MULTIVITAMI 0 Yes Take by Un mel N ORAL 5-10 mouth. ity of 15:26: [place] [address] Medical Branch thiamine 0 Yes 100mg Take 100 Univ ers (VITAMIN 5-10 mg by ity of B-1) 100 mg 15:26: mouth [place] tablet 43 daily. Medical Branch aspirin 81 0 Yes 81mg Take 81 mg U nivers mg chewable 5-10 by mouth ity of tablet 15:26: daily. [place] [address] Medical Branch atorvastati 0 Yes 40mg Take 40 mg Univers n 40 mg 5-10 by mouth ity of tablet 15:26: at [place] 43 bedtime. Medical Branch furosemide 0 Yes 40mg Take 40 mg U nivers 40 mg 5-10 by mouth ity of tablet 15:26: daily. [place] [address] Medical Branch NaCl 0.9% 0 Yes 10mL Inject 10 Uni vers (NS) Soln 5-10 mL ity of 10 mL with 15:26: intravenou [place] sodium 43 sly once Medical chloride now. Branch 2.5 mEq/mL SolP 17.125 mEq insulin 2018-0 Yes [id number] 4U inject 4 U nivers lispro, 5-10 Units ity of human, 100 00:00: under the [place] unit/mL 00 skin 3 Medical injection (three) Branch times daily before meals. insulin 2018-0 Yes [id number] 4U inject 4 U nivers lispro, 5-10 Units ity of human, 100 00:00: under the [place] unit/mL 00 skin 3 Medical injection (three) Branch times daily before meals. insulin 2018-0 Yes [id number] 4U inject 4 U nivers lispro, 5-10 Units ity of human, 100 00:00: under the [place] unit/mL 00 skin 3 Medical injection (three) Branch times daily before meals. insulin 2019-0 Yes [id number] 4U inject 4 U nivers lispro, 5-10 Units ity of human, 100 00:00: under the [place] unit/mL 00 skin 3 Medical injection (three) Branch times daily before meals. insulin 2019-0 Yes [id number] 4U inject 4 U nivers lispro, 5-10 Units ity of human, 100 00:00: under the [place] unit/mL 00 skin 3 Medical injection (three) Branch times daily before meals. insulin 2018-0 Yes [id number] 4U inject 4 U nivers lispro, 5-10 Units ity of human, 100 00:00: under the [place] unit/mL 00 skin 3 Medical injection (three) Branch times daily before meals. Insulin 2018-0 Yes [id number] 18U inject Uni vers Glargine 5-10 18-24 ity of 100 unit/mL 00:00: Units [place] (3 mL) 00 under the Medical injection skin every Bran ch morning. insulin 2018-0 Yes [id number] 4U inject 4 U nivers lispro, 5-10 Units ity of human, 100 00:00: under the [place] unit/mL 00 skin 3 Medical injection (three) Branch times daily before meals. insulin 2018-0 Yes [id number] 4U inject 4 U nivers lispro, 5-10 Units ity of human, 100 00:00: under the [place] unit/mL 00 skin 3 Medical injection (three) Branch times daily before meals. insulin 2018-0 Yes [id number] 4U inject 4 U nivers lispro, 5-10 Units ity of human, 100 00:00: under the [place] unit/mL 00 skin 3 Medical injection (three) Branch times daily before meals. insulin 2019-0 Yes [id number] 4U inject 4 U nivers lispro, 5-10 Units ity of human, 100 00:00: under the [place] unit/mL 00 skin 3 Medical injection (three) Branch times daily before meals. insulin 2018-0 Yes [id number] 4U inject 4 U nivers lispro, 5-10 Units ity of human, 100 00:00: under the [place] unit/mL 00 skin 3 Medical injection (three) Branch times daily before meals. insulin 2019- No [id number] 4U inject 4 Univers lispro, 5-10 05-07 Units ity of human, 100 00:00: 00:00 under the [place] unit/mL 00 :00 skin 3 Medical injection (three) Branch times daily before meals. insulin 2019- No [id number] 4U inject 4 Univers lispro, 5-10 05-07 Units ity of human, 100 00:00: 00:00 under the [place] unit/mL 00 :00 skin 3 Medical injection (three) Branch times daily before meals. Insulin 2018- No [id number] 18U inject Un mel Glargine 03-25 18-24 ity of 100 unit/mL 00:00: 00:00 [place] (3 [place]) 00 :00 under the Medical injection skin every Bran ch morning. folic Yes Take by Univers acid/vit B 3-08 mouth. ity of complex and 16:39: [facility] ( 29 Medical COMPLEX-VIT Branch RAZA C-FOLIC ACID ORAL) potassium Yes 20meq Take 20 Univ ers chloride 20 3-08 mEq by ity of mEq packet 16:39: mouth [place] 29 daily. Medical Branch folic Yes Take by Univers acid/vit B 3-08 mouth. ity of complex and 16:39: [facility] ( 29 Medical COMPLEX-VIT Branch RAZA C-FOLIC ACID ORAL) potassium Yes 20meq Take 20 Univ ers chloride 20 3-08 mEq by ity of mEq packet 16:39: mouth [place] 29 daily. Medical Branch Potassium Potassium Yes Anneliese 1 capsule Common Chloride Chloride [place] with food [facility] Tylenol # 3 Tylenol # 3 Yes Anneliese one tab Common [facility] Vitamin D-3 Vitamin D-3 Yes Anneliese 2 capsule Common [place] [facility] Humalog Humalog Yes Anneliese as Common [place] directed [facility] Aspir-Low Aspir-Low Yes Anneliese 1 tablet Common [place] Namzaric Namzaric Yes Anneliese 1 Common [place] Zyprexa Zyprexa Yes Anneliese 1 tablet Comm on [facility] Vitamin B-1 Vitamin B-1 Yes Anneliese 1 tablet Common [place]ender [facility] Multivitami Multivitami Yes Anneliese as Common n n [place]ender directed [facility] Lantus Lantus Yes Anneliese as Common [place] directed [facility] Lasix Lasix Yes Anneliese 1 tablet Common Millender [facility] Isosorbide Isosorbide Yes Anneliese 1 tablet Common Mononitrate Mononitrate Mill[place] in the [facility] Lyrica Lyrica Yes Anneliese 1 capsule Commo n Millender [facility] Immunizations Ordered Filled Immunization Date Status Comments [facility] e Immunization Name Name SARS-COV-2 COVID-19 2021-09-16 Completed Unive rsity of MODERNA VACCINE 00:00:00 [facility] SARS-COV-2 COVID-19 2021-09-16 Completed Unive rsity of MODERNA VACCINE 00:00:00 [facility] SARS-COV-2 COVID-19 2021-09-16 Completed Unive rsity of MODERNA VACCINE 00:00:00 [facility] SARS-COV-2 COVID-19 2021-09-16 Completed Unive rsity of MODERNA VACCINE 00:00:00 [facility] SARS-COV-2 COVID-19 2021-09-16 Completed Unive rsity of MODERNA VACCINE 00:00:00 [facility] SARS-COV-2 COVID-19 2021-08-17 Completed Unive rsity of MODERNA VACCINE 00:00:00 [facility] Influenza High Dose 2021-08-17 Completed Unive rsity of 00:00:00 [facility] SARS-COV-2 COVID-19 2021-08-17 Completed Unive rsity of MODERNA VACCINE 00:00:00 [facility] Influenza High Dose 2021-08-17 Completed Unive rsity of 00:00:00 [facility] SARS-COV-2 COVID-19 2021-08-17 Completed Unive rsity of MODERNA VACCINE 00:00:00 [facility] Influenza High Dose 2021-08-17 Completed Unive rsity of 00:00:00 [facility] SARS-COV-2 COVID-19 2021-08-17 Completed Unive rsity of MODERNA VACCINE 00:00:00 [facility] Influenza High Dose 2021-08-17 Completed Unive rsity of 00:00:00 [facility] SARS-COV-2 COVID-19 2021-08-17 Completed Unive rsity of MODERNA VACCINE 00:00:00 [facility] Influenza High Dose 2021-08-17 Completed Unive rsity of 00:00:00 [facility] Zoster(Zostavax)( 2020-09-14 Completed Unive rsity of ingles) 00:00:00 [facility] Zoster(Zostavax)( 2020-09-14 Completed Unive rsity of ingles) 00:00:00 [facility] Zoster(Zostavax)( 2020-09-14 Completed Unive rsity of ingles) 00:00:00 [facility] Zoster(Zostavax)( 2020-09-14 Completed Unive rsity of ingles) 00:00:00 [facility] Zoster(Zostavax)( 2020-09-14 Completed Unive rsity of ingles) 00:00:00 [facility] Influenza High Dose 2020-07-13 Completed Unive rsity of 00:00:00 [facility] Influenza High Dose 2020-07-13 Completed Unive rsity of 00:00:00 [facility] Influenza High Dose 2020-07-13 Completed Unive rsity of 00:00:00 [facility] Influenza High Dose 2020-07-13 Completed Unive rsity of 00:00:00 [facility] Influenza High Dose 2020-07-13 Completed Unive rsity of 00:00:00 [facility] Influenza High Dose 2019-09-15 Completed Unive rsity of 00:00:00 [facility] Influenza High Dose 2019-09-15 Completed Unive rsity of 00:00:00 [facility] Influenza High Dose 2019-09-15 Completed Unive rsity of 00:00:00 [facility] Influenza High Dose 2019-09-15 Completed Unive rsity of 00:00:00 [facility] Influenza High Dose 2019-09-15 Completed Unive rsity of 00:00:00 [facility] Influenza Virus 2018-09-09 Completed Universit y of Vaccine 00:00:00 [facility] Influenza Virus 2018-09-09 Completed Universit y of Vaccine 00:00:00 [facility] Influenza Virus 2018-09-09 Completed Universit y of Vaccine 00:00:00 [facility] Influenza Virus 2018-09-09 Completed Universit y of Vaccine 00:00:00 [facility] Influenza Virus 2018-09-09 Completed Universit y of Vaccine 00:00:00 [facility] Influenza Virus 2018-09-09 Completed Universit y of Vaccine 00:00:00 [facility] Influenza Virus 2018-09-09 Completed Universit y of Vaccine 00:00:00 [facility] Influenza Virus 2018-09-09 Completed Universit y of Vaccine 00:00:00 [facility] Influenza Virus 2018-09-09 Completed Universit y of Vaccine 00:00:00 [facility] Influenza Virus 2018-09-09 Completed Universit y of Vaccine 00:00:00 [facility] Influenza Virus 2018-09-09 Completed Universit y of Vaccine 00:00:00 [facility] Influenza Virus 2018-09-09 Completed Universit y of Vaccine 00:00:00 [facility] Influenza Virus 2018-09-09 Completed Universit y of Vaccine 00:00:00 [facility] Influenza Virus 2018-09-09 Completed Universit y of Vaccine 00:00:00 [facility] Influenza Virus 2018-09-09 Completed Universit y of Vaccine 00:00:00 [facility] Influenza Virus 2018-09-09 Completed Universit y of Vaccine 00:00:00 [facility] Influenza Virus 2018-09-09 Completed Universit y of Vaccine 00:00:00 [facility] Influenza Virus 2018-09-09 Completed Universit y of Vaccine 00:00:00 [facility] Influenza Virus 2018-09-09 Completed Universit y of Vaccine 00:00:00 [facility] Influenza Virus 2018-09-09 Completed Universit y of Vaccine 00:00:00 [facility] Influenza Virus 2018-09-09 Completed Universit y of Vaccine 00:00:00 [facility] Influenza Virus 2018-09-09 Completed Universit y of Vaccine 00:00:00 [facility] Influenza Virus 2018-09-09 Completed Universit y of Vaccine 00:00:00 [facility] Pneumococcal 2016-11-02 Completed University o f [...] blood 2022-04-17 03:35:00 110 mm[Hg] Univer sity [facility] Diastolic blood 2022-04-17 03:35:00 77 [facility]22-04-17 03:35:00 98 /min [facility] Oxygen saturation in 2022-04-17 03:35:00 99 /min [facility] Arterial blood by [facility] Pulse oximetry [place] Body temperature 2022-04-17 03:25:00 37.33 Priyanka [facility] Respiratory rate 2022-04-17 03:25:00 18 /min [facility] Body height 2022-04-17 03:25:00 170.2 cm [facility] Body weight 2022-04-17 03:25:00 77.111 kg [facility] BMI 2022-04-17 03:25:00 26.63 kg/m2 [facility] Systolic blood 2022-03-01 16:36:00 143 mm[Hg] Univer sity [facility] Diastolic blood 2022-03-01 16:36:00 80 mm[Hg] Unive rsity [facility] Heart rate 2022-03-01 16:36:00 98 /min [facility] [place] [facility] Respiratory rate 2022-03-01 16:36:00 16 /min Univ ersity [facility] [place] [facility] Oxygen saturation in 2022-03-01 16:36:00 97 /min University of Arterial blood by [facility] birdie Pulse oximetry Branch Body temperature 2022-03-01 11:42:00 36.94 Priyanka Univ ersity [facility] [place] [facility] Body height 2022-03-01 11:42:00 170.2 cm [facility] [place] [facility] Body weight 2022-03-01 11:42:00 77.111 kg [facility] [place] [facility] BMI 2022-03-01 11:42:00 26.63 kg/m2 [facility] [place] [facility] Systolic blood 2021-11-02 17:17:00 109 mm[Hg] Univer sity of pressure [place] [facility] Diastolic blood 2021-11-02 17:17:00 67 mm[Hg] Unive rsity of pressure [place] [facility] Heart rate 2021-11-02 17:17:00 84 [...] 22:36:00 118 mm[Hg] Univer sity of pressure [place] [facility] Diastolic blood 2021-04-25 22:36:00 70 [...] 2021-04-25 15:42:00 36.44 Priyanka Univ ersity [facility] [place] [facility] Body weight 2021-04-25 15:42:00 81.647 kg [facility] [place] [facility] BMI 2021-04-25 15:42:00 27.37 kg/m2 [facility] [place] [facility] Systolic blood 2020-06-26 10:00:00 124 mm[Hg] Univer sity of pressure [place] [facility] Diastolic blood 2020-06-26 10:00:00 78 mm[Hg] Unive rsity of pressure [place] [facility] Respiratory rate 2020-06-26 10:00:00 18 /min Univ ersity of [place] [facility] Oxygen saturation in 2020-06-26 10:00:00 98 /min University of Arterial blood by [facility] Pulse oximetry Branch Heart rate 2020-06-26 08:56:00 98 /min Universi ty [facility] [place] [facility] Body temperature 2020-06-26 08:56:00 37.17 Priyanka Univ ersity of [place] [facility] Body weight 2020-06-26 08:56:00 74.844 kg Universi ty [facility] [place] [facility] BMI 2020-06-26 08:56:00 25.09 kg/m2 [facility] [place] [facility] Systolic blood 2020-06-26 10:00:00 124 mm[Hg] Univer sity of pressure [place] [facility] Diastolic blood 2020-06-26 10:00:00 78 mm[Hg] Unive rsity of pressure [place] [facility] Respiratory rate 2020-06-26 10:00:00 18 /min Univ ersity [facility] [place] [facility] Oxygen saturation in 2020-06-26 10:00:00 98 /min University of Arterial blood by [facility] Pulse oximetry Branch Heart rate 2020-06-26 08:56:00 98 /min [facility]i [facility] [place] [facility] Body temperature 2020-06-26 08:56:00 37.17 Priyanka Univ ersity [facility] [place] [facility] Body weight 2020-06-26 08:56:00 74.844 kg [facility] [place] [facility] BMI 2020-06-26 08:56:00 25.09 kg/m2 [facility] [place] [facility] Systolic blood 2020-05-24 15:47:29 166 mm[Hg] Univer sity of pressure [place] [facility] Diastolic blood 2020-05-24 15:47:29 89 mm[Hg] Unive rsity of pressure [place] [facility] Heart rate 2020-05-24 15:47:29 86 /min [facility]i [facility] [place] [facility] Respiratory rate 2020-05-24 15:47:29 16 /min Univ ersity [facility] [place] [facility] Oxygen saturation in 2020-05-24 15:47:29 97 /min University of Arterial blood by [facility] Pulse oximetry Branch Body temperature 2020-05-24 11:44:00 36.94 Priyanka Univ ersity [facility] [place] [facility] Body height 2020-05-24 11:44:00 172.7 cm [facility] [place] [facility] Body weight 2020-05-24 11:44:00 74.844 kg [facility] [place] [facility] BMI 2020-05-24 11:44:00 25.09 kg/m2 [facility] [place] [facility] Systolic blood 2020-05-24 15:47:29 166 mm[Hg] Univer sity of pressure [place] [facility] Diastolic blood 2020-05-24 15:47:29 89 mm[Hg] Unive rsity of pressure [place] [facility] Heart rate 2020-05-24 15:47:29 86 /min [facility] [place] [facility] Respiratory rate 2020-05-24 15:47:29 16 /min Univ ersity [facility] [place] [facility] Oxygen saturation in 2020-05-24 15:47:29 97 /min University of Arterial blood by [facility] Pulse oximetry Branch Body temperature 2020-05-24 11:44:00 36.94 Priyanka Univ ers[facility] [place] [facility] Body height 2020-05-24 11:44:00 172.7 cm [facility] [place] [facility] Body weight 2020-05-24 11:44:00 74.844 kg [facility] [place] [facility] BMI 2020-05-24 11:44:00 25.09 kg/m2 [facility] [place] [facility] Systolic blood 2020-03-24 02:31:00 127 mm[Hg] Univer sity of pressure [place] [facility] Diastolic blood 2020-03-24 02:31:00 72 mm[Hg] Unive rsity of pressure [place] [facility] Heart rate 2020-03-24 02:31:00 69 /min [facility] [place] [facility] Body temperature 2020-03-24 02:31:00 36.39 Priyanka Univ ers[facility] [place] [facility] Respiratory rate 2020-03-24 02:31:00 18 /min Univ ersity [facility] [place] [facility] Oxygen saturation in 2020-03-24 02:31:00 97 /min University of Arterial blood by [facility] birdie Pulse oximetry Branch Systolic blood 2020-03-23 21:35:00 100 mm[Hg] Univer sity of pressure [place] [facility] Diastolic blood 2020-03-23 21:35:00 59 mm[Hg] Unive rsity of pressure [place] [facility] Heart rate 2020-03-23 21:35:00 79 /min [facility]i [facility] [place] [facility] Body temperature 2020-03-23 21:35:00 36.78 Priyanka Univ [facility] [place] [facility] Respiratory rate 2020-03-23 21:35:00 18 /min Univ ersity [facility] [place] [facility] Oxygen saturation in 2020-03-23 21:35:00 99 /min University of Arterial blood by [facility] Pulse oximetry Branch Body weight 2020-03-23 09:41:00 76.613 kg [facility]i [facility] [place] [facility] BMI 2020-03-23 09:41:00 26.45 kg/m2 [facility] [place] [facility] Body height 2020-03-23 03:43:00 170.2 cm [facility] [place] [facility] Systolic blood 2020-03-21 20:55:00 128 mm[Hg] Univer sity of pressure [place] [facility] Diastolic blood 2020-03-21 20:55:00 61 mm[Hg] Unive rsity of pressure [place] [facility] Heart rate 2020-03-21 20:55:00 75 /min [facility] [place] [facility] Respiratory rate 2020-03-21 20:55:00 10 /min Univ ersity [facility] [place] [facility] Oxygen saturation in 2020-03-21 20:55:00 98 /min University of Arterial blood by [facility] Pulse oximetry Branch Body temperature 2020-03-21 20:03:00 37.83 Priyanka [facility] [place] [facility] Body height 2020-03-21 20:03:00 170.2 cm [facility] [place] [facility] Body weight 2020-03-21 20:03:00 76.204 kg [facility] [place] [facility] BMI 2020-03-21 20:03:00 26.31 kg/m2 [facility] [place] [facility] Systolic blood 2020-03-07 20:50:00 118 mm[Hg] Univer sity of pressure [place] [facility] Diastolic blood 2020-03-07 20:50:00 65 mm[Hg] Unive rsity of pressure [place] [facility] Heart rate 2020-03-07 20:50:00 85 /min [facility] [place] [facility] Body temperature 2020-03-07 20:50:00 36.39 Priyanka Univ [facility] [place] [facility] Respiratory rate 2020-03-07 20:50:00 18 /min Univ ersity [facility] [place] [facility] Oxygen saturation in 2020-03-07 20:50:00 95 /min University of Arterial blood by [place] birdie Pulse oximetry Branch Body height 2020-03-05 02:35:00 172.7 cm [facility] [place] [facility] Body weight 2020-03-05 02:35:00 73.483 kg [facility] [place] [facility] BMI 2020-03-05 02:35:00 24.63 kg/m2 [facility] [place] [facility] Systolic blood 2020-03-02 15:49:00 122 mm[Hg] Univer sity of pressure [place] [facility] Diastolic blood 2020-03-02 15:49:00 81 mm[Hg] [facility] Heart rate 2020-03-02 15:49:00 89 /min [facility] Body temperature 2020-03-02 15:49:00 37.06 Priyanka [facility] Respiratory rate 2020-03-02 15:49:00 19 /min [facility] Oxygen saturation in 2020-03-02 15:49:00 96 /min [facility] Arterial blood by [facility] birdie Pulse oximetry Branch Body height 2020-03-01 00:54:00 170.2 cm [facility] Body weight 2020-03-01 00:54:00 76.975 kg [facility] BMI 2020-03-01 00:54:00 26.58 kg/m2 [facility] Systolic blood 2020-01-17 21:08:00 116 mm[Hg] [facility] Diastolic blood 2020-01-17 21:08:00 78 mm[Hg] [facility] Heart rate 2020-01-17 21:08:00 88 /min [facility] Body temperature 2020-01-17 21:08:00 36.72 Priyanka [facility] Respiratory rate 2020-01-17 21:08:00 18 /min [facility] Oxygen saturation in 2020-01-17 21:08:00 98 /min [facility] blood by [facility] Pulse oximetry Branch Body height 2020-01-16 06:21:00 172.7 cm [facility] Body weight 2020-01-16 04:35:00 83.462 kg [facility] BMI 2020-01-16 04:35:00 27.98 kg/m2 [facility] Procedures Procedure Date / Time Performing Clinician Source Performed CONSENT/REFUSAL FOR 2022-04-17 03:07:20 Doctor Unacassie, [facility] DIAGNOSIS AND TREATMENT [facility] XR LUMBAR SPINE 2 VW 2022-03-01 14:18:00 Angelika Aguilar [facility] EXTERNAL PROVIDER RECORDS 2021-11-19 06:01:00 Doctor Blaise, [facility] POCT GLUCOSE (AUTOMATED) 2021-11-02 22:49:00 Aida Shah [facility] POCT GLUCOSE (AUTOMATED) 2021-11-02 17:06:00 Aida Shah [facility] POCT GLUCOSE (AUTOMATED) 2021-11-02 13:30:00 Aida Shah [facility] TROPONIN I 2021-11-02 09:29:00 Alexandra Hdz [facility] BASIC METABOLIC PANEL 2021-11-02 09:29:00 Sridhar Gordon [facility] (NA, K, CL, CO2, GLUCOSE, Medica l Branch BUN, CREATININE, CA) CBC WITH DIFF 2021-11-02 09:29:00 Heidi [facility] N-TERMINAL PRO-BNP 2021-11-02 09:29:00 Alexandra Hdz [facility] POCT GLUCOSE (AUTOMATED) 2021-11-02 01:27:00 [place], Aida [facility] POCT GLUCOSE (AUTOMATED) 2021-11-01 17:37:00 [facility]) 2021-11-01 13:40:00 [facility] PO[facility]SE ([facility]OMATED) 2021-11-01 01:10:00 [facility] PO[facility] GLUCOSE (AUTOMATED) 2021-10-31 22:28:00 [facility] PO[facility] GLUCOSE (AUTOMATED) 2021-10-31 17:29:00 [facility] 2021-10-31 16:25:00 Alexandra Hdz [facility] TRANSTHORACIC ECHO (TTE) 2021-10-31 15:53:00 Alexandra Hdz [facility] COMPLETE W/ CONTRAST [facility] POCT GLUCOSE (AUTOMATED) 2021-10-31 13:39:00 Martha Drake [facility] TROPONIN I 2021-10-31 10:08:00 [facility] BASIC METABOLIC PANEL 2021-10-31 10:08:00 [facility] (NA, K, CL, CO2, GLUCOSE, Medica l Branch BUN, CREATININE, CA) LIPID PANEL ([id number])(TOTAL 2021-10-31 10:08:00 Alexandra Hdz [facility] CHOLESTEROL, [facility] TRIGLYCERIDES, HDL) CBC WITH DIFF 2021-10-31 10:08:00 [facility] URINALYSIS 2021-10-31 10:08:00 [facility] N-TERMINAL PRO-BNP 2021-10-31 10:08:00 Alexandra Hdz [facility] TROPONIN I 2021-10-31 06:17:00 [facility] CHEST 1 VW 2021-10-31 01:30:56 Martha Drake [facility] LIPASE 2021-10-31 01:25:00 Martha Drake [facility] TROPONIN I 2021-10-31 01:25:00 Martha Drake [facility] COMP. METABOLIC PANEL 2021-10-31 01:25:00 Martha Drake [facility] ([id number]) Medical Branch CBC WITH DIFF 2021-10-31 01:25:00 Martha Drake [facility] GLYCOSYLATED HEMOGLOBIN 2021-10-31 01:25:00 Julio Cesar [facility] (A1C) [facility] PROTHROMBIN TIME / INR 2021-10-31 01:25:00 Martha Drake [facility] ACTIVATED PARTIAL 2021-10-31 01:25:00 Martha Drake [facility] N-TERMINAL PRO-BNP 2021-10-31 01:25:00 Martha Drake [facility] COVID-19 (ID NOW RAPID 2021-10-31 01:25:00 Martha Drake [facility] TESTING) Medical Branch LAB ONLY COVID 2021-10-31 01:25:00 Martha Drake [facility] INTERPRETATION [facility] HB ECG ROUTINE & RHYTHM 2021-10-31 01:20:03 Martha Drake [facility] URINALYSIS 2021-04-25 21:01:00 Nallely Zhao [facility] XR LUMBAR SPINE 2 VW 2021-04-25 18:41:00 Nallely Zhao [facility] XR HIPS 2 VW LEFT 2021-04-25 18:41:00 Nallely Zhao [facility] acute hospital CONSENT/REFUSAL FOR 2021-04-25 15:43:06 Doctor Unassigned, [facility] DIAGNOSIS AND TREATMENT [facility] CT CERVICAL SPINE WO 2020-06-26 09:35:01 Martha Drake [facility] CONTRAST [facility] CT LUMBAR SPINE WO 2020-06-26 09:35:01 Martha Drake [facility] CONTRAST Medical Branch CT THORACIC SPINE WO 2020-06-26 09:35:01 Martha Drake [facility] CONTRAST [facility] UNILATERAL DUPLEX SCAN OF 2020-05-24 14:53:40 [facility] BY [facility]ULAR LAB Medical B ranch XR ANKLE 3+ VW LEFT 2020-05-24 13:22:26 Charanjit Heck [facility] HEPATIC FUNCTION PANEL 2020-05-24 13:13:00 Charanjit Heck [facility] ([id number]) (ALB,T.PRO,BILI Medical Branch T,BU/BC,ALT,AST,ALK PHOS) BASIC METABOLIC PANEL 2020-05-24 13:13:00 Charanjit Heck [facility] (NA, K, CL, CO2, GLUCOSE, Medica l Branch BUN, CREATININE, CA) CBC WITH DIFFERENTIAL 2020-05-24 13:13:00 Charanjit Heck [facility] acute hospital PROTHROMBIN TIME / INR 2020-05-24 13:13:00 Charanjit Heck [facility] ACTIVATED PARTIAL 2020-05-24 13:13:00 Charanjit Heck [facility] THRMPLAS NOTICE OF PRIVACY 2020-05-24 11:38:26 Doctor Unassigned, [facility] PRACTICES [facility] [place] CONSENT/REFUSAL FOR 2020-05-24 11:35:52 Doctor Unassrose mary, [facility] DIAGNOSIS AND TREATMENT [facility] [place] POCT GLUCOSE (AUTOMATED) 2020-03-23 22:32:00 Jamel Flores [facility] POCT GLUCOSE (AUTOMATED) 2020-03-23 18:07:00 Jamel Flores [facility] POCT GLUCOSE (AUTOMATED) 2020-03-23 14:57:00 Jamel Flores [facility] ECHO ROUTINE W/DOPPLER 2020-03-23 13:33:57 Tereza Cano [facility] EKG-12 LEAD 2020-03-23 12:56:59 Jamel Flores [place] [facility] MAGNESIUM 2020-03-23 11:15:00 Bodani[facility] 2020-03-23 11:15:00 Jerome [facility] BASIC METABOLIC PANEL 2020-03-23 11:15:00 [facility] (NA, K, CL, CO2, GLUCOSE, Medica l Branch BUN, CREATININE, CA) PROTHROMBIN TIME / INR 2020-03-23 11:15:00 Tereza Cano [facility] ACTIVATED PARTIAL 2020-03-23 11:15:00 Jerome [facility] EKG-12 LEAD 2020-03-23 07:51:19 Jamel Flores [facility] MAGNESIUM 2020-03-23 05:55:00 Jerome [facility] TROPONIN I 2020-03-23 05:55:00 Jerome [facility] BASIC METABOLIC PANEL 2020-03-23 05:55:00 [facility] (NA, K, CL, CO2, GLUCOSE, Medica l Branch BUN, CREATININE, CA) LIPID PANEL ([id number])(TOTAL 2020-03-23 05:55:00 Tereza Cano [facility] CHOLESTEROL, [facility] TRIGLYCERIDES, HDL) PROTHROMBIN TIME / INR 2020-03-23 02:55:00 Sallie Eckert [facility] ACTIVATED PARTIAL 2020-03-23 02:55:00 Babar [facility] XR CHEST 2 VW 2020-03-23 01:52:37 Esteban Singletary [facility] acute hospital CORONAVIRUS COVID-19 2020-03-23 00:50:00 Esteban Singletary [facility] TESTING [facility] FERRITIN SERUM 2020-03-22 23:36:00 [facility] TR[facility] 2020-03-22 23:36:00 Esteban Singletary [facility] acute hospital COMP. METABOLIC PANEL 2020-03-22 23:36:00 Esteban Singletary [facility] ([id number]) [facility] IRON PANEL 2020-03-22 23:36:00 Jerome [facility] CBC WITH DIFFERENTIAL 2020-03-22 23:36:00 Esteban Singletary [facility] acute hospital N-TERMINAL PRO-BNP 2020-03-22 23:36:00 Esteban Singletary [facility] EKG-12 LEAD 2020-03-22 23:08:53 [facility] EKG-12 LEAD 2020-03-22 23:08:15 [facility] XR CHEST 1 VW 2020-03-21 20:42:35 Myles Harry [facility] LACTIC ACID WHOLE BLOOD 2020-03-21 20:38:00 Myles Harry [facility] LIPASE 2020-03-21 20:19:00 Myles Harry [facility] TROPONIN I 2020-03-21 20:19:00 Myles Harry [facility] COMP. METABOLIC PANEL 2020-03-21 20:19:00 Myles Harry [id number] PROTHROMBIN TIME / INR 2020-03-21 20:19:00 Myles Harry [facility] N-TERMINAL PRO-BNP 2020-03-21 20:19:00 Myles Harry [facility] CORONAVIRUS COVID-19 2020-03-21 20:19:00 Myles Harry [facility] EKG-12 LEAD 2020-03-21 20:11:28 Myles Harry [facility] POCT GLUCOSE (AUTOMATED) 2020-03-07 20:56:00 Julio Cesar [facility] [facility] [employer] [facility] POCT GLUCOSE (AUTOMATED) 2020-03-07 15:34:00 Sarah Adorno [facility] POCT GLUCOSE (AUTOMATED) 2020-03-07 12:56:00 Sarah Adorno [facility] URIC ACID 2020-03-07 10:14:00 Holland Garza [facility] TROPONIN I 2020-03-07 10:14:00 Lulu Harris o [facility] BASIC METABOLIC PANEL 2020-03-07 10:14:00 Edionwe, [facility] (NA, K, CL, CO2, GLUCOSE, Medica l Branch BUN, CREATININE, CA) CBC WITH DIFFERENTIAL 2020-03-07 10:14:00 Julio Cesar [facility] N-TERMINAL PRO-BNP 2020-03-07 10:14:00 Lulu Harris [facility] POCT GLUCOSE (AUTOMATED) 2020-03-06 21:16:00 Edionrosalio [facility] POCT GLUCOSE (AUTOMATED) 2020-03-06 16:10:00 Edionrosalio [facility] POCT GLUCOSE (AUTOMATED) 2020-03-06 12:38:00 Edconsuelo [facility] TROPONIN I 2020-03-06 08:51:00 [facility] BASIC METABOLIC PANEL 2020-03-06 08:51:00 Edionrosalio [facility] (NA, K, CL, CO2, GLUCOSE, Medica l Branch BUN, CREATININE, CA) CBC WITH DIFFERENTIAL 2020-03-06 08:51:00 Julio Cesar [facility] POCT GLUCOSE (AUTOMATED) 2020-03-06 01:16:00 Edconsuelo [facility] TROPONIN I 2020-03-05 23:25:00 Edconsuelo [facility] POCT GLUCOSE (AUTOMATED) 2020-03-05 21:14:00 Edionrosalio [facility] POCT GLUCOSE (AUTOMATED) 2020-03-05 16:39:00 Edionrosalio [facility] POCT GLUCOSE (AUTOMATED) 2020-03-05 12:47:00 Edionrosalio [facility] TROPONIN I 2020-03-05 09:50:00 [facility] BASIC METABOLIC PANEL 2020-03-05 09:50:00 Edionrosalio [facility] (NA, K, CL, CO2, GLUCOSE, Medica l Branch BUN, CREATININE, CA) CBC WITH DIFFERENTIAL 2020-03-05 09:50:00 Edionrosalio, [facility] E[facility]-12 LEAD 2020-03-05 00:36:54 [facility] 2020-03-05 00:31:03 Bobo Urrutia [facility] acute [facility] CORONAVIRUS COVID-19 2020-03-05 00:03:00 Charanjit Heck [facility] TESTING [facility] XR CHEST 1 VW 2020-03-04 23:58:59 Charanjit Heck [facility] acute hospital LIPASE 2020-03-04 23:29:00 Charanjit Heck [facility] acute hospital TROPONIN I 2020-03-04 23:29:00 Charanjit Heck [facility] acute hospital HEPATIC FUNCTION PANEL 2020-03-04 23:29:00 Charanjit Heck [facility] ([id number]) (ALB,T.PRO,BILI Medical Branch T,BU/BC,ALT,AST,ALK PHOS) BASIC METABOLIC PANEL 2020-03-04 23:29:00 Charanjit Heck [facility] (NA, K, CL, CO2, GLUCOSE, Medica l Branch BUN, CREATININE, CA) CBC WITH DIFFERENTIAL 2020-03-04 23:29:00 Umang Charanjit [facility] acute hospital PROTHROMBIN TIME / INR 2020-03-04 23:29:00 Charanjit Heck [facility] ACTIVATED PARTIAL 2020-03-04 23:29:00 [facility] N-TERMINAL PRO-BNP 2020-03-04 23:29:00 Charanjit Heck [facility] EKG-12 LEAD 2020-03-04 23:15:42 Charanjit Heck [facility] acute hospital EKG-12 LEAD 2020-03-04 23:10:23 Charanjit Heck [facility] acute hospital EMERGENCY DEPARTMENT 2020-03-04 05:01:00 Doctor Unassigned, [facility] DOCUMENTS [facility] POCT GLUCOSE (AUTOMATED) 2020-03-02 15:52:00 Lulu Harris [facility] POCT GLUCOSE (AUTOMATED) 2020-03-02 12:39:00 Lulu Harris [facility] MAGNESIUM 2020-03-02 08:57:00 [facility]yn [facility] BASIC METABOLIC PANEL 2020-03-02 08:57:00 Carolyn [facility] (NA, K, CL, CO2, GLUCOSE, Medica l Branch BUN, CREATININE, CA) N-TERMINAL PRO-BNP 2020-03-02 08:57:00 [facility]yn [facility] POCT GLUCOSE (AUTOMATED) 2020-03-01 20:39:00 Lulu Harris [facility] MAGNESIUM 2020-03-01 08:43:[address] [facility] TROPONIN I 2020-03-01 08:43:00 Carolyn [facility] BASIC METABOLIC PANEL 2020-03-01 08:43:00 tSeven Lulu [facility] (NA, K, CL, CO2, GLUCOSE, Medica l Branch BUN, CREATININE, CA) CBC WITH DIFFERENTIAL 2020-03-01 08:43:00 Steven Lulu [facility] acute [facility] N-TERMINAL PRO-BNP 2020-03-01 08:43:00 [facility]yn [facility] VITAMIN B12, LEVEL 2020-03-01 03:49:00 [facility]yn [facility] FOLATE 2020-03-01 03:49:00 Carolyn [facility] SEDIMENTATION RATE 2020-03-01 03:49:00 [facility]yn [facility] POCT GLUCOSE (AUTOMATED) 2020-03-01 03:39:00 Lulu Harris [facility] PHOSPHORUS 2020-03-01 02:28:[address] [facility] URIC ACID 2020-03-01 02:28:00 Carolyn [facility] TROPONIN I 2020-03-01 02:28:00 [facility]yn [facility] HEPATIC FUNCTION PANEL 2020-03-01 02:28:00 Carolyn alek [facility] ([id number]) (ALB,T.PRO,BILI Medical Branch T,BU/BC,ALT,AST,ALK PHOS) PROTHROMBIN TIME / INR 2020-03-01 02:28:00 Ivory Leon [facility] N-TERMINAL PRO-BNP 2020-03-01 02:28:00 Lulu Harris [facility] PROCALCITONIN 2020-03-01 02:28:00 Carolyn [facility] EKG-12 LEAD 2020-03-01 01:54:29 Carolyn [facility] EKG-12 LEAD 2020-02-29 23:16:21 Bobo Urrutia [facility] XR CHEST 1 VW COVID 2020-02-29 23:14:25 Bobo Urrutia [facility] EKG-12 LEAD 2020-02-29 23:13:50 Bobo Urrutia [facility] LACTIC ACID WHOLE BLOOD 2020-02-29 22:21:00 Bobo Urrutia [facility] CORONAVIRUS COVID-19 2020-02-29 22:20:00 Bobo Urrutia [facility] TESTING [facility] CREATINE KINASE 2020-02-29 22:14:00 Carolyn [facility] URIC ACID 2020-02-29 22:14:00 Carolyn [facility] LIPASE 2020-02-29 22:14:00 Bobo Urrutia [facility] acute hospital MAGNESIUM 2020-02-29 22:14:00 [facility] TROPONIN I 2020-02-29 22:14:00 Bobo Urrutia [facility] THYROID STIMULATING 2020-02-29 22:14:00 [facility] BASIC METABOLIC PANEL 2020-02-29 22:14:00 Bobo Urrutia [facility] (NA, K, CL, CO2, GLUCOSE, Medica l Branch BUN, CREATININE, CA) CBC WITH DIFFERENTIAL 2020-02-29 22:14:00 Bobo Urrutia [facility] acute hospital GLYCOSYLATED HEMOGLOBIN 2020-02-29 22:14:00 Carolyn [facility] (A1C) [facility] N-TERMINAL PRO-BNP 2020-02-29 22:14:00 Ivory Leon [facility] EKG-12 LEAD 2020-02-29 21:59:12 [facility] 2020-02-29 21:48:49 Bobo Urrutia [facility] acute hospital EMERGENCY DEPARTMENT 2020-02-29 05:01:00 Doctor Unassigned, [facility] DOCUMENTS [facility] POCT GLUCOSE (AUTOMATED) 2020-01-17 18:15:00 Julio Cesar [facility] TROPONIN I 2020-01-17 16:31:00 Julio Cesar [facility] ACTIVATED PARTIAL 2020-01-17 16:31:00 Carolyn [facility] POCT GLUCOSE (AUTOMATED) 2020-01-17 11:56:00 Julio Cesar [facility] TROPONIN I 2020-01-17 09:52:00 Julio Cesar [facility] BASIC METABOLIC PANEL 2020-01-17 09:52:00 [facility] (NA, K, CL, CO2, GLUCOSE, Medica l Branch BUN, CREATININE, CA) CBC WITH DIFFERENTIAL 2020-01-17 09:52:00 [facility] 2020-01-17 09:52:00 Julio Cesar [facility] POCT GLUCOSE (AUTOMATED) 2020-01-16 23:59:00 Julio Cesar [facility] EKG-12 LEAD 2020-01-16 22:15:50 Julio Cesar [facility] TROPONIN I 2020-01-16 20:04:00 Julio Cesar [facility] ACTIVATED PARTIAL 2020-01-16 20:04:[address] [facility] POCT GLUCOSE (AUTOMATED) 2020-01-16 17:05:00 Julio Cesar [facility] POCT GLUCOSE (AUTOMATED) 2020-01-16 13:38:00 Edconsuelo [facility] TROPONIN I 2020-01-16 11:11:00 Julio Cesar [facility] LIPID PANEL ([id number])(TOTAL 2020-01-16 11:11:00 Julio CesarSarah [facility] TRIGLYCERIDES, HDL) ACTIVATED PARTIAL 2020-01-16 11:11:00 Julio Cesar [facility] CRITICAL CARE 2020-01-16 05:48:18 Charanjit Heck [facility] acute [facility] XR CHEST 1 VW 2020-01-16 04:46:44 Charanjit Heck [facility] acute hospital TROPONIN I 2020-01-16 04:38:00 Charanjit Heck [facility] acute hospital HEPATIC FUNCTION PANEL 2020-01-16 04:38:00 Charanjit Heck [facility] ([id number]) (ALB,T.PRO,BILI Medical Branch T,BU/BC,ALT,AST,ALK PHOS) BASIC METABOLIC PANEL 2020-01-16 04:38:00 Charanjit Heck [facility] (NA, K, CL, CO2, GLUCOSE, Medica l Branch BUN, CREATININE, CA) CBC WITH DIFFERENTIAL 2020-01-16 04:38:00 Charanjit Heck [facility] acute hospital GLYCOSYLATED HEMOGLOBIN 2020-01-16 04:38:00 [facility] PROTHROMBIN TIME / INR 2020-01-16 04:38:00 Charanjit Heck [facility] ACTIVATED PARTIAL 2020-01-16 04:38:[address] [facility] N-TERMINAL PRO-BNP 2020-01-16 04:38:00 Charanjit eHck [facility] EKG-12 LEAD 2020-01-16 04:37:48 Charanjit Heck [facility] acute hospital EKG-12 LEAD 2020-01-16 04:35:35 Charanjit Heck [facility] acute hospital AUTHORIZATION FOR RELEASE 2019-07-12 05:01:00 Doctor Unassigned, [facility] Encounters Start End Encounter Admission Attending Care Care Encounter Source Date/Time Date/Time Type Type Clinicians Facility Department ID 2022-03-06 Outpatient [facility] [id number] [place] 08:51:10 [id number] [facility] 2021-12-16 [id number] 11:30:00 Jim [facility] 2021-12-16 Outpatient STLMLC STLM [id number] Common 09:19:01 [facility] 2021-12-11 Outpatient Patriceender, STLMLC STLM [id number] Common 14:38:21 Anneliese [facility] 2021-12-11 [facility] [id number] Common 11:50:18 Anneliese [facility] 2021-09-16 Emergency [facility] [id number] [facility]13 Emergency [facility] [id number] Univers 11:42:35 [facility] 2021-09-13 Emergency [facility] [id number] Univers 05:40:48 [facility] 2022-04-23 2022-04-23 [facility] [id number] Common 00:00:00 00:00:00 [facility] 2022-04-16 2022-04-16 Emergency X RAJINDER [facility] ERT [id number] Univers 22:29:00 23:27:00 LUZ [facility] 2022-04-16 2022-04-16 [facility] [id number] Univers 22:29:00 23:27:00 Luz Kumar EWEN [id number] i ty [facility] [id number] [facility] [id number] [facility] 084 Branch 2022-03-05 2022-03-10 Inpatient Renu MURGUIA, [facility] CAR [id number] [facility] 06:12:00 22:30:00 BRODIE 2022-03-01 2022-03-01 Emergency X LAUREN [facility] ERT [id number] Univers 06:52:00 12:04:[address] [facility] 2022-03-01 2022-03-01 Emergency [facility] [id number] [facility] 06:52:00 12:04:00 Angelika RAMSEY [id number] [id number] [id number] [facility] 084 Branch 2021-12-25 2021-12-25 Inpatient ATTAR, [facility] [id number] [place] 00:00:00 00:00:00 [address] 2021-12-19 2021-12-25 Inpatient LAUREN, [facility] [id number] [place] 00:00:00 00:00:00 JAYSON [address] 2021-12-24 2021-12-24 ambulatory STLMLC STLMLC [id number] Common 00:00:00 00:00:00 [facility] 2021-12-20 2021-12-20 Inpatient ATTAR, [facility] [id number] [place] 00:00:00 00:00:00 [address] 2021-12-17 2021-12-17 ambulatory STLMLC STLMLC [id number] Common 00:00:00 00:00:00 [facility] 2021-12-16 2021-12-16 ambulatory STLMLC STLMLC [id number] Common 00:00:00 00:00:00 [facility] 2021-11-19 2021-11-19 Orders Doctor JONES [id number] Univers 00:00:00 00:00:00 Only Unassigned, ASHLEIGH [id number] ity of [place] [facility] [id number] [place] [id number] [facility] 009 Branch 2021-11-04 2021-11-04 Transition SHAREE Maria [id number] Univers 00:00:00 00:00:00 of Care Supa GRE[place] [id number] [id number] [id number] [facility] 403 Branch 2021-10-302021-11-02 Inpatient X ALYSSA NMCESAR ZEFERINO [id number] Univers 19:14:00 18:15:00 AIDA ity of [facility] 2021-10-30 2021-11-02 [facility] Martha Drake [facility] [id number] Univers 19:14:00 18:15:00 Encounter Aida Shah [id number] [facility] [id number] [facility] [id number] [facility] 081 Branch 2021-05-17 2021-05-17 Letter PcpROBERT 1.2.840.114 [id number] Univers 00:00:00 00:00:00 (Out) Patient ASHLEIGH 350.1.13.10 it y of [facility] [place].2.[place] A [phone] [facility] [address] 2021-04-25 2021-04-25 Emergency Cece, TRAUMA 1.2.544.124 [id number] Univers 10:43:00 17:38:00 Formerly named [facility] 350.1.13.10 i ty of [place] 4.2.7.2.[address] [place] [address] [phone] [facility] 014 Branch 2020-06-26 2020-06-26 Emergency [facility] 1.2.043.050 [id number] 03:50:00 06:45:00 Martha Ramsey 350.1.13.10 [place] 4.2.7.2.686 [place] [id number] [facility] 2020-06-26 2020-06-26 [facility] 1.2.643.893 [id number] Univers 03:50:00 06:45:00 Martha Ramsey 350.1.13.10 ity of [place] 4.2.7.2.[address] [place] [address] [phone] [facility] 0[address] Branch 2020-05-24 2020-05-24 [facility] 1.2.641.362 [id number] 06:40:47 10:54:00 Charanjit Ramsey 350.1.13.10 [place] 4.2.7.2.686 [place] [phone] [facility] 2020-05-24 2020-05-24 Emergency Umang [facility] 1.2.316.121 [id number] Univers 06:40:47 10:54:00 Charanjit Ramsey 350.1.13.10 i [place] [id number] [place] [address] [place] 2020-03-29 2020-03-29 Letter Jamel Flores 1.2.840.114 [id number] 00:00:00 00:00:00 (Out) T [place] 350.1.13.10 Hospital 4.2.7.2.686 [id number] [facility] 2020-03-29 2020-03-29 Letter Jamel Flores 1.2.840.114 [id number] Univers 00:00:00 00:00:00 (Out) T Ashleigh 350.1.13.10 it y of Hospital 4.2.7.2.686 [place] [phone] [address] 2020-03-26 2020-03-26 Transition Sharee George 1.2.840.114 [id number] 00:00:00 00:00:00 of Care Sherrell Grewal 350.1.13.10 [place] 4.2.7.2.686 [phone] [facility] 2020-03-26 2020-03-26 Transition Sharee George 1.2.840.114 [id number] Univers 00:00:00 00:00:00 of Care Sherrell Grewal 350.1.13.10 it y [place] [id number] [facility] 403 [place] 2020-03-22 2020-03-23 Emergency Sallie Eckertnie 1.2.840. 114 [id number] Univers 18:02:47 21:55:00 Jamel Flores 350.1.13.10 ity of [facility] 4.2.7.2.686 [place] [id number] [place] 13[address] [place] 2020-03-22 2020-03-23 Outpatient X JAMEL FLORES [facility] [id number] Univers 18:02:47 21:55:00 ity of [facility] 2020-03-21 2020-03-21 Emergency Kamryn, [facility] 1.2.840.114 [id number] Univers 15:02:08 17:16:00 Mylesazra Ramsey 350.1.13.10 i [place] [id number] [place] 13[address] Branch 2020-03-21 2020-03-21 Emergency X KAMRYN, [facility] ERT [id number] Univers 15:02:08 17:16:[address] [facility] 2020-03-13 2020-03-13 Outpatient Raju_P MMG MMG [id number] [place] 05:24:00 05:24:00 0428 [facility] 2020-03-08 2020-03-08 Transition Sharee Cool 1.2.840.114 [id number] Univers 00:00:00 00:00:00 of Care Prema Grewal 350.1.13.10 [place] [id number] [address] 2020-03-04 2020-03-07 [facility] Charanjit Heck [facility] 1.2.840.1 14 [id number] Univers 18:01:05 18:00:00 Encounter Sarah Adorno [place] 350.1.13.10 ity of [place] [id number] [place] [address] Branch 2020-03-04 2020-03-07 Inpatient X JULIO CESAR [facility] ZEFERINO [id number] Univers 18:01:05 18:00:00 SARAH ity of [facility] 2020-03-03 2020-03-03 Transition Sharee Silva 1.2.840.114 [id number] Univers 00:00:00 00:00:00 of Care Isatu Grewal 350.1.13.10 it y of [place] [id number] [address] 2020-02-29 2020-03-02 [facility] Bobo Urrutia [facility] 1.2.840.11 4 [id number] Univers 16:53:09 12:18:00 Encounter Lulu Harris 350.1.13.10 ity of [place] [id number] [place] [address] [place] 2020-02-29 2020-03-02 Inpatient X STEVEN [facility] ZEFERINO [id number] Univers 16:53:09 12:18:[address] [facility] 2020-02-15 2020-02-15 Outpatient R CHAVA [facility] [id number] Univers 11:30:00 11:30:[address] [facility] 2020-02-15 2020-02-15 [facility] 1.2.840.114 [id number] Univers 08:13:42 08:43:42 ne Visit Rosemary Ramsey 350.1.13.10 it[place] of [place] [phone] Mo dical nal [address] 2020-01-18 2020-01-18 Transition Sharee Harvey 1.2.840.114 [id number] Univers 00:00:00 00:00:00 of Care Ana M Grewal 350.1.13.10 it y of [place] [id number] [facility] [address] 2020-01-15 2020-01-17 [facility] Charanjit Heck [facility] 1.2.840.1 14 [id number] Univers 22:33:37 16:58:00 Encounter Sarah Adorno 350.1.13.10 [place] [id number] [place] [address] Branch 2020-01-15 2020-01-17 Outpatient X JULIO CESAR [facility] Z[place]INO [id number] Univers 22:33:37 16:58:[address] [facility] 2019-10-07 2019-10-07 Outpatient Ko Gant [id number] Common 10:48:00 10:48:00 [facility] 2019-10-05 2019-10-05 Outpatient Ko Gant [id number] Common 16:06:00 16:06:00 [facility] [address] [facility] 2019-07-27 2019-07-27 Refill TIARA Larsen 1.2.840.114 [id number] Univers 00:00:00 00:00:00 Rosemary Ramsey 350.1.13.10 i [place] [phone] Mo dical nal [address] [facility] 2019-07-12 2019-07-12 Out[facility] [id number] Common 16:24:00 16:24:00 [facility] [address] [facility] 2019-07-12 2019-07-12 Orders Doctor JONES 1.2.840.114 [id number] Univers 00:00:00 00:00:00 Only Unassigned, ASHLEIGH 350.1.13.10 ity of [place] [facility] 4.2.7.2.686 [place] [phone] [place] [address] Branch 2019-07-06 2019-07-06 Out[facility] [id number] Common 14:00:00 14:00:00 [facility] [address] [facility] Results Test Description Test Time Test Comments Results Result Comments Source SARS-CoV-2 (COVID-19) RNA [Presence] in Respiratory sp ecimen by 2021-12-20 07:04:48 ERI with probe detection Test Item Value Reference Range Interpretation Comme nts SARS-CoV-2 (COVID-19) RNA [Presence] in Respiratory Not detected No t-Detected specimen by ERI with probe detection (test code = 16962-7) 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 (test code = 22301-8) Whether the patient has symptoms related to condition of interest (test code = 29516-8) Patient was hospitalized because of this condition (test code = 89691-4) Whether the patient was admitted to intensive care unit (ICU) for condition of interest (test code = 00928-8) Whether patient resides in a congregate care setting (test code = 13622-0) POCT GLUCOSE (AUTOMATED)2021-11-02 22:57:12 Test Item Value Reference Range Interpretation Comments POCT GLU (test code = 4074708629) 224 mg/dL 70-110 H Lab Interpretation (test code = Abnormal 75220-6) [facility] LEAD ROUTINE [id number] 22:37:57 Test Item Value Reference Range Interpretation Comments Lab Interpretation (test code = Abnormal 41474-5) [facility] GLUCOSE (AUTOMATED)2021-11-02 17:43:02 Test Item Value Reference Range Interpretation Comments POCT GLU (test code = 8428145721) 264 mg/dL 70-110 H Lab Interpretation (test code = Abnormal 62003-6) [facility] [id number] 15:07:47 Test Item Value Reference Interpretation Comments Range TROPONIN I (test 0.064 ng/mL See_Comment H [Automated code = 2141989887) message] The system which generated this result [...] biotin. Lab Interpretation Abnormal (test code = 24639-1) [facility] [id number] 15:04:26 Test Item Value Reference Range Interpretation Comments NT-proBNP (test code 800 pg/mL See_Comment H [Autom ated = 6429314379) message] The system which generated this result transmitted reference range : <=450. The reference range was not used to interpret this result as normal/abnormal . ALYSSA (test code = ALYSSA) Biotin has been reported to cause a negative bias, interpret results relative to patient's use of biotin. Lab Interpretation Abnormal (test code = 12195-0) [facility] GLUCOSE (AUTOMATED)2021-11-02 13:36:38 Test Item Value Reference Range Interpretation Comments POCT GLU (test code = 6406549036) 185 mg/dL 70-110 H Lab Interpretation (test code = Abnormal 79454-4) [facility] METABOLIC PANEL (NA, K, CL, CO2, GLUCOSE, BUN, CREATININE, CA)2021-11-02 10:26:43 Test Item Value Reference Range Interpretation Comments NA (test code = 136 mmol/L 135-145 3902109407) K (test code = 4.0 mmol/L 3.5-5.0 9769082383) CL (test code = 99 mmol/L 98-108 0095478540) CO2 TOTAL (test code = 27 mmol/L 23-31 5060257436) AGAP (test code = 2-16 7828103629) BUN (test code = 30 mg/dL 7-23 H 6469755782) GLUCOSE (test code = 165 mg/dL 70-110 H 1384905432) CREATININE (test code = 1.42 mg/dL 0.60-1.25 H 9896248149) CALCIUM (test code = 9.5 mg/dL 8.6-10.6 8682925065) eGFR (test code = mL/min/1.73m2 4682383723) ALYSSA (test code = ALYSSA) Association of [...] tests). Lab Interpretation Abnormal (test code = 51545-4) [facility] WITH [id number] 10:01:58 Test Item Value Reference Range Interpretation [...] RDW-SD (test code = 39.8 fL 38.5-51.6 97147-9) RDW-CV (test code = 11.5 % 12.1-15.4 L 788-0) PLT (test code = See_Comment [Automated 777-3) message] The sy stem which generated this result transmitted reference range : 150 - 328 10*3/ ?L. The reference r corey was not used to interpret this result as normal/abnormal . MPV (test code = 10.5 fL 9.8-13.0 25691-9) NRBC/100 WBC (test See_Comment [Automat ed code = 0502116500) message] The system which generated this result transmitted reference range : 0.0 - 10.0 /100 WBCs. The refer ence range was not u sed to interpret th is result as normal/abnormal . NRBC x10^3 (test code <0.01 See_Comment [Auto mated = 5273377028) message] The s ystem which generated this result transmitted reference range : 10*3/?L. The reference range was not used to interpret this result as normal/abnormal . GRAN MAT (NEUT) % 59.3 % (test code = 770-8) IMM GRAN % (test code 0.30 % = 1028599365) LYMPH % (test code = 25.0 % 736-9) MONO % (test code = 10.7 % 5905-5) EOS % (test code = 4.1 % 713-8) BASO % (test code = 0.6 % 706-2) GRAN MAT x10^3(ANC) 4.19 10*3/uL 1.99-6.95 (test code = 3980600923) IMM GRAN x10^3 (test <0.03 0.00-0.06 code = 9742450514) LYMPH x10^3 (test code 1.77 10*3/uL 1.09-3.23 = 731-0) MONO x10^3 (test code 0.76 10*3/uL 0.36-1.02 = 742-7) EOS x10^3 (test code = 0.29 10*3/uL 0.06-0.53 711-2) BASO x10^3 (test code 0.04 10*3/uL 0.01-0.09 = 704-7) Lab Interpretation Abnormal (test code = 47363-4) [facility] GLUCOSE (AUTOMATED)2021-11-02 01:29:56 Test Item Value Reference Range Interpretation Comments POCT GLU (test code = 5128422014) 167 mg/dL 70-110 H Lab Interpretation (test code = Abnormal 10474-9) [facility] GLUCOSE (AUTOMATED)2021-11-01 17:40:19 Test Item Value Reference Range Interpretation Comments POCT GLU (test code = 4435594089) 193 mg/dL 70-110 H Lab Interpretation (test code = Abnormal 33951-3) [facility] GLUCOSE (AUTOMATED)2021-11-01 13:44:28 Test Item Value Reference Range Interpretation Comments POCT GLU (test code = 0588796172) 200 mg/dL 70-110 H Lab Interpretation (test code = Abnormal 28762-2) [facility] GLUCOSE (AUTOMATED)2021-11-01 01:38:43 Test Item Value Reference Range Interpretation Comments POCT GLU (test code = 4318719766) 177 mg/dL 70-110 H Lab Interpretation (test code = Abnormal 87950-9) [facility] GLUCOSE (AUTOMATED)2021-10-31 22:39:43 Test Item Value Reference Range Interpretation Comments POCT GLU (test code = 6920760793) 174 mg/dL 70-110 H Lab Interpretation (test code = Abnormal 19599-6) [facility] GLUCOSE (AUTOMATED)2021-10-31 17:40:22 Test Item Value Reference Range Interpretation Comments POCT GLU (test code = 7500670254) 224 mg/dL 70-110 H Lab Interpretation (test code = Abnormal 60559-4) [facility] [id number] 17:14:58 Test Item Value Reference Interpretation Comments Range TROPONIN I (test 0.080 ng/mL See_Comment H [Automated code = 3699483024) message] The system which generated this result [...] biotin. Lab Interpretation Abnormal (test code = 11618-2) [facility]MINAL [id number] 15:14:03 Test Item Value Reference Range Interpretation Comments NT-proBNP (test code 474 pg/mL See_Comment H [Autom ated = 6529816733) message] The system which generated this result transmitted reference range : <=450. The reference range was not used to interpret this result as normal/abnormal . ALYSSA (test code = ALYSSA) Biotin has been reported to cause a negative bias, interpret results relative to patient's use of biotin. Lab Interpretation Abnormal (test code = 37305-2) [facility] TexasLIPID PANEL (23715)(TOTAL CHOLESTEROL, TRIGLYCERIDES, HDL)2021-10-31 15:05:19 Test Item Value Reference Range Interpretation Comments CHOL (test code = 101 mg/dL 120-200 L 6368027800) HDL (test code = 36 mg/dL >40 L 9158355603) HDLC RATIO (test code = See_Comment [Au tomated message] 0922802566) The system [employer] generated this result transmit diamante reference range : <=5.0. The refe rence range was not u sed to interpret th is result as normal/abnormal . TRIG (test code = 143 mg/dL 30-170 6603232020) LDL CHOL (test code = 36 mg/dL See_Comment [Auto mated message] 00673-8) The system [employer] generated this result transmit diamante reference range : <=160. The refe rence range was not u sed to interpret th is result as normal/abnormal . VLDL (test code = 29 mg/dL 5-60 6149217130) Lab Interpretation (test Abnormal code = 31152-9) [facility]PO[facility] GL[facility]SE (AUTOMATED)2021-10-31 13:44:00 Test Item Value Reference Range Interpretation Comments POCT GLU (test code = 0270089765) 150 mg/dL 70-110 H Lab Interpretation (test code = Abnormal 36819-3) [facility] with [id number] 11:13:14 Test Item Value Reference Range Interpretation [...] RDW-SD (test code = 39.9 fL 38.5-51.6 43268-5) RDW-CV (test code = 11.8 % 12.1-15.4 L 788-0) PLT (test code = See_Comment [Automated 777-3) message] The sy stem which generated this result transmitted reference range : 150 - 328 10*3/ ?L. The reference r corey was not used to interpret this result as normal/abnormal . MPV (test code = 11.0 fL 9.8-13.0 79157-1) NRBC/100 WBC (test See_Comment [Automat ed code = 4462910205) message] The system which generated this result transmitted reference range : 0.0 - 10.0 /100 WBCs. The refer ence range was not u sed to interpret th is result as normal/abnormal . NRBC x10^3 (test code <0.01 See_Comment [Auto mated = 4819562190) message] The s ystem which generated this result transmitted reference range : 10*3/?L. The reference range was not used to interpret this result as normal/abnormal . GRAN MAT (NEUT) % 64.3 % (test code = 770-8) IMM GRAN % (test code 0.30 % = 7018374501) LYMPH % (test code = 21.7 % 736-9) MONO % (test code = 10.0 % 5905-5) EOS % (test code = 3.1 % 713-8) BASO % (test code = 0.6 % 706-2) GRAN MAT x10^3(ANC) 4.35 10*3/uL 1.99-6.95 (test code = 6040259564) IMM GRAN x10^3 (test <0.03 0.00-0.06 code = 9595953780) LYMPH x10^3 (test code 1.47 10*3/uL 1.09-3.23 = 731-0) MONO x10^3 (test code 0.68 10*3/uL 0.36-1.02 = 742-7) EOS x10^3 (test code = 0.21 10*3/uL 0.06-0.53 711-2) BASO x10^3 (test code 0.04 10*3/uL 0.01-0.09 = 704-7) Lab Interpretation Abnormal (test code = 03411-4) [facility] [id number] 11:09:53 Test Item Value Reference Interpretation Comments Range TROPONIN I (test 0.101 ng/mL See_Comment H [Automated code = 1009638310) message] The system which generated this result [...] biotin. Lab Interpretation Abnormal (test code = 12768-5) [facility] (NA, K, CL, CO2, GLUCOSE, BUN, CREATININE, CA)2021-10-31 10:59:31 Test Item Value Reference Range Interpretation Comments NA (test code = 139 mmol/L 135-145 0428601165) K (test code = 4.1 mmol/L 3.5-5.0 6910847583) CL (test code = 103 mmol/L 98-108 2343274558) CO2 TOTAL (test code = 28 mmol/L 23-31 4509613497) AGAP (test code = 2-16 5328085355) BUN (test code = 43 mg/dL 7-23 H 2385595995) GLUCOSE (test code = 165 mg/dL 70-110 H 5247795741) CREATININE (test code = 1.68 mg/dL 0.60-1.25 H 1178832848) CALCIUM (test code = 9.6 mg/dL 8.6-10.6 4572030272) eGFR (test code = mL/min/1.73m2 4261329357) ALYSSA (test code = ALYSSA) Association of [...] tests). Lab Interpretation Abnormal (test code = 49589-9) [facility] TexasGlycosylated Hemoglobin (A1C)2021-10-31 09:13:40 Test Item Value Reference Range Interpretation Comments HGB A1C (test code = 6.8 % 4.0-5.7 H 4548-4) ALYSSA (test code = ALYSSA) Reference RangesNormal: <5.7%Prediabetes: 5.7 - 6.4%Diabetes: > 6.5% Lab Interpretation (test Abnormal code = 08381-7) [facility] [id number] 06:48:18 Test Item Value Reference Interpretation Comments Range TROPONIN I (test 0.082 ng/mL See_Comment H [Automated code = 1742115607) message] The system which generated this result [...] biotin. Lab Interpretation Abnormal (test code = 91747-0) [facility] [id number] 02:09:48 Test Item Value Reference Interpretation Comments Range TROPONIN I (test 0.067 ng/mL See_Comment H [Automated code = 2535012542) message] The system which generated this result [...] biotin. Lab Interpretation Abnormal (test code = 30048-7) [facility]MINAL [id number] 02:06:31 Test Item Value Reference Range Interpretation Comments NT-proBNP (test code 318 pg/mL See_Comment [Autom ated = 6150147890) message] The system which generated this result transmitted reference range : <=450. The reference range was not used to interpret this result as normal/abnormal . ALYSSA (test code = ALYSSA) Biotin has been reported to cause a negative bias, interpret results relative to patient's use of biotin. Lab Interpretation Normal (test code = 14827-8) [facility] (72004)2021-10-31 01:58:28 Test Item Value Reference Range Interpretation Comments NA (test code = 137 mmol/L 135-145 5589260125) K (test code = 4.1 mmol/L 3.5-5.0 9683834097) CL (test code = 101 mmol/L 98-108 5583696571) CO2 TOTAL (test code = 26 mmol/L 23-31 9504307019) AGAP (test code = 2-16 4249859137) BUN (test code = 46 mg/dL 7-23 H 2398665003) GLUCOSE (test code = 213 mg/dL 70-110 H 8665469477) CREATININE (test code = 1.96 mg/dL 0.60-1.25 H 3234409858) TOTAL BILI (test code = 0.9 mg/dL 0.1-1.1 1663855423) CALCIUM (test code = 9.7 mg/dL 8.6-10.6 3319910570) T PROTEIN (test code = 7.0 g/dL 6.3-8.2 4321268494) ALBUMIN (test code = 4.3 g/dL 3.5-5.0 6231091418) ALK PHOS (test code = 58 U/L 34-122 3660873102) ALTv (test code = 20 U/L 5-50 1742-6) AST(SGOT) (test code = 27 U/L 13-40 9307555105) eGFR (test code = mL/min/1.73m2 7531122458) ALYSSA (test code = ALYSSA) Association of [...] tests). Lab Interpretation Abnormal (test code = 13529-8) [facility] TexasLIPASE, [id number] 01:57:48 Test Item Value Reference Range Interpretation Comments LIPASE (test code = 0150827170) 330 U/L 0-220 H Lab Interpretation (test code = Abnormal 34270-2) [facility] TexasaPTT2021-12-16 01:55:04 Test Item Value Reference Range Interpretation Comments APTT Patient (test See_Comment [Automat ed code = 3173-2) message] The system which generated this result transmitted reference range : 23 - 38 Seconds . The reference range was not used to interpr et this result as normal/abnormal . ALYSSA (test code = ALYSSA) The [facility] patient population mean normal value for aPTT is 30 seconds. Lab Interpretation Normal (test code = 82967-8) [facility] TexasPROTHROMBIN TIME / [id number] 01:53:08 Test Item Value Reference Range Interpretation [...] tions. Lab Interpretation (test Normal code = 76878-6) [facility] WITH [id number] 01:45:44 Test Item Value Reference Range Interpretation [...] RDW-SD (test code = 39.1 fL 38.5-51.6 14248-6) RDW-CV (test code = 11.6 % 12.1-15.4 L 788-0) PLT (test code = See_Comment [Automated 777-3) message] The sy stem which generated this result transmitted reference range : 150 - 328 10*3/ ?L. The reference r corey was not used to interpret this result as normal/abnormal . MPV (test code = 10.4 fL 9.8-13.0 08924-7) NRBC/100 WBC (test See_Comment [Automat ed code = 1152799694) message] The system which generated this result transmitted reference range : 0.0 - 10.0 /100 WBCs. The refer ence range was not u sed to interpret th is result as normal/abnormal . NRBC x10^3 (test code <0.01 See_Comment [Auto mated = 9082134198) message] The s ystem which generated this result transmitted reference range : 10*3/?L. The reference range was not used to interpret this result as normal/abnormal . GRAN MAT (NEUT) % 62.1 % (test code = 770-8) IMM GRAN % (test code 0.30 % = 7202468687) LYMPH % (test code = 23.4 % 736-9) MONO % (test code = 10.8 % 5905-5) EOS % (test code = 2.9 % 713-8) BASO % (test code = 0.5 % 706-2) GRAN MAT x10^3(ANC) 4.14 10*3/uL 1.99-6.95 (test code = 3551371954) IMM GRAN x10^3 (test <0.03 0.00-0.06 code = 1400804021) LYMPH x10^3 (test code 1.56 10*3/uL 1.09-3.23 = 731-0) MONO x10^3 (test code 0.72 10*3/uL 0.36-1.02 = 742-7) EOS x10^3 (test code = 0.19 10*3/uL 0.06-0.53 711-2) BASO x10^3 (test code 0.03 10*3/uL 0.01-0.09 = 704-7) Lab Interpretation Abnormal (test code = 35985-9) [facility] TexasURINALYSIS2021-06-10 21:15:48 Test Item Value Reference Range Interpretation Comments APPEARANCE (test code = Clear Clear 6060259851) COLOR (test code = Yellow Yellow 1695133851) PH (test code = 4.8-8.0 4611914485) SP GRAVITY (test code = 1.003-1.030 2612340268) GLU U QUAL (test code = 50 mg/dL Normal A 6683284685) BLOOD (test code = Negative Negative INTERFERE NCE FROM 3582081978) ASCORBIC ACID M AY CAUSE FALSE NEG ATIVE RESULT KETONES (test code = Negative Negative 6197825012) PROTEIN (test code = Negative Negative 2887-8) UROBILIN (test code = Normal Normal 2226611221) BILIRUBIN (test code = Negative Negative 8172411049) NITRITE (test code = Negative Negative 5240459639) LEUK JESS (test code = Negative Negative 5334247809) RBC/HPF (test code = See_Comment [Autom ated message] 5196485384) The system [employer] generated this result transmitted ref erence range: 0 - 3 HP F. The reference range was not used to int erpret this result as normal/abnormal . WBC/HPF (test code = See_Comment [Autom ated message] 5988344936) The system [employer] generated this result transmitted ref erence range: 0 - 5 HP F. The reference range was not used to int erpret this result as normal/abnormal . BACTERIA (test code = Negative Negative 6253521398) SQ EPITH (test code = <1 See_Comment [Auto mated message] 9760650147) The system [employer] generated this result transmitted ref erence range: <=2 HPF. The reference range was not used to int erpret this result as normal/abnormal . HYAL CAST (test code = See_Comment [Aut omated message] 8183936408) The system [employer] generated this result transmitted ref erence range: <=2 LPF. The reference range was not used to int erpret this result as normal/abnormal . Lab Interpretation (test Abnormal code = 17963-9) [facility] TexasXR LUMBAR SPINE 2 [id number] 20:30:53 Impression: Postoperative changes. Degenerative changes. No [...] acute bony abnormality identified.End of Report.RL: 3901 [facility] HIPS 2 VW [id number] 20:24:52Impression: Postoperative changes. Degenerative changes. No acute [...] is available.End of Report.RL: 3901 [facility] (NA, K, CL, CO2, GLUCOSE, BUN, CREATININE, CA)2020-05-24 14:15:00 Test Item Value Reference Range Interpretation Comments NA (test code = 139 mmol/L 135-145 3413629944) K (test code = 4.1 mmol/L 3.5-5 8422373640) CL (test code = 104 mmol/L 98-108 8088108612) CO2 TOTAL (test code = 26 mmol/L 23-31 3130900764) AGAP (test code = 2-16 9101215452) BUN (test code = 22 mg/dL 7-23 9634871438) GLUCOSE (test code = 203 mg/dL 70-110 H 1421552550) CREATININE (test code = 1.40 mg/dL 0.6-1.25 H 2615276280) CALCIUM (test code = 9.1 mg/dL 8.6-10.6 2667019500) eGFR Calculation mL/min/1.73m2 (Non-) (test code = 9814672837) eGFR Calculation mL/min/1.73m2 () (test code = 8741700970) ALYSSA (test code = ALYSSA) Association of [...] tests). Lab Interpretation Abnormal (test code = 24239-3) [facility] (ALB, T.PRO, BILI T, BU/BC, ALT, AST, ALK PHOS)2020-05-24 13:54:00 Test Item Value Reference Range Interpretation Comments TOTAL BILI (test code = 8337256144) 0.9 mg/dL 0.1-1.1 BILI UNCON (test code = 9680850926) 1.0 mg/dL 0.1-1.1 BILI CONJ (test code = 5835026677) 0.0 mg/dL 0-0.3 T PROTEIN (test code = 7874126343) 7.0 g/dL 6.3-8.2 ALBUMIN (test code = 4600292941) 4.2 g/dL 3.5-5 ALK PHOS (test code = 2557178665) 49 U/L 34-122 ALTv (test code = 1742-6) 17 U/L 5-50 AST(SGOT) (test code = 6222335036) 25 U/L 13-40 Lab Interpretation (test code = Normal 99299-3) [facility]aPTT2020-07-09 13:32:00 Test Item Value Reference Range Interpretation Comments APTT Patient (test See_Comment [Automat ed code = 3173-2) message] The system which generated this result transmitted reference range : 23 - 38 Seconds . The reference range was not used to interpr et this result as normal/abnormal . ALYSSA (test code = ALYSSA) The [facility] patient population mean normal value for aPTT is 30 seconds. Lab Interpretation Normal (test code = 56706-7) [facility] TexasProthrombin Time (PT) / [id number] 13:30:00 Test Item Value Reference Range Interpretation [...] tions. Lab Interpretation (test Normal code = 96868-3) [facility] TexasCB WITH [id number] 13:27:00 Test Item Value Reference Range Interpretation [...] RDW-SD (test code = 42.6 fL 38.5-51.6 97037-1) RDW-CV (test code = 12.3 % 12.1-15.4 788-0) PLT (test code = See_Comment [Automated 777-3) message] The sy stem which generated this result transmitted reference range : 150 - 328 10*3/ ?L. The reference r corey was not used to interpret this result as normal/abnormal . MPV (test code = 9.9 fL 9.8-13 56943-9) NRBC/100 WBC (test See_Comment [Automat ed code = 8234568041) message] The system which generated this result transmitted reference range : 0.0 - 10.0 /100 WBCs. The refer ence range was not u sed to interpret th is result as normal/abnormal . NRBC x10^3 (test code <0.01 See_Comment [Auto mated = 0381744240) message] The s ystem which generated this result transmitted reference range : 10*3/?L. The reference range was not used to interpret this result as normal/abnormal . GRAN MAT (NEUT) % 55.1 % (test code = 770-8) IMM GRAN % (test code 0.20 % = 0490950535) LYMPH % (test code = 28.8 % 736-9) MONO % (test code = 11.3 % 5905-5) EOS % (test code = 3.5 % 713-8) BASO % (test code = 1.1 % 706-2) GRAN MAT x10^3(ANC) 3.11 10*3/uL 1.99-6.95 (test code = 5587726939) IMM GRAN x10^3 (test <0.03 0-0.06 code = 8764396026) LYMPH x10^3 (test code 1.63 10*3/uL 1.09-3.23 = 731-0) MONO x10^3 (test code 0.64 10*3/uL 0.36-1.02 = 742-7) EOS x10^3 (test code = 0.20 10*3/uL 0.06-0.53 711-2) BASO x10^3 (test code 0.06 10*3/uL 0.01-0.09 = 704-7) Lab Interpretation Abnormal (test code = 39628-5) [facility] 3+ VW [id number] 13:25:58HISTORY: ?Pain. FINDINGS: AP, lateral, oblique views [...] No acute fracture or dislocation in left ankle.[facility] GLUCOSE (AUTOMATED)2020-03-23 22:34:00 Test Item Value Reference Range Interpretation Comments POCT GLU (test code = 2079475407) 173 mg/dL 70-110 H Lab Interpretation (test code = Abnormal 31372-8) [facility] GLUCOSE (AUTOMATED)2020-03-23 22:34:00 Test Item Value Reference Range Interpretation Comments POCT GLU (test code = 2621899439) 173 mg/dL 70-110 H Lab Interpretation (test code = Abnormal 28755-4) [facility] GLUCOSE (AUTOMATED)2020-03-23 18:12:00 Test Item Value Reference Range Interpretation Comments POCT GLU (test code = 165 mg/dL 70-110 H Notifi ed Provider [id number]) Lab Interpretation (test Abnormal code = 56445-1) [facility] GLUCOSE (AUTOMATED)2020-03-23 18:12:00 Test Item Value Reference Range Interpretation Comments POCT GLU (test code = 165 mg/dL 70-110 H Notifi ed Provider [id number]) Lab Interpretation (test Abnormal code = 70471-3) [facility] GLUCOSE (AUTOMATED)2020-03-23 15:04:00 Test Item Value Reference Range Interpretation Comments POCT GLU (test code = 114 mg/dL 70-110 H Notifi ed Provider [id number]) Lab Interpretation (test Abnormal code = 60106-1) [facility] GLUCOSE (AUTOMATED)2020-03-23 15:04:00 Test Item Value Reference Range Interpretation Comments POCT GLU (test code = 114 mg/dL 70-110 H Notifi ed Provider [id number]) Lab Interpretation (test Abnormal code = 56763-5) [facility] TexasFERRITIN [id number] 13:23:00 Test Item Value Reference Range Interpretation Comments FERRITIN (test code = 139.0 ng/mL 18-464 9095276545) ALYSSA (test code = ALYSSA) Biotin has been reported to cause a negative bias, interpret results relative to patient's use of biotin. Lab Interpretation (test Normal code = 86036-4) [facility] TexasFERR[facility]IN [id number] 13:23:00 Test Item Value Reference Range Interpretation Comments FERRITIN (test code = 139.0 ng/mL 18-464 1429313094) ALYSSA (test code = ALYSSA) Biotin has been reported to cause a negative bias, interpret results relative to patient's use of biotin. Lab Interpretation (test Normal code = 88781-4) [facility] [id number] 12:53:00 Test Item Value Reference Range Interpretation Comments IRON (test code = 8846851554) 87 ug/dL 50-160 TIBC (test code = 3774945124) 385 ug/dL 250-410 % FE SAT (test code = 2417325557) 23 % 20-50 Lab Interpretation (test code = Normal 44254-0) [facility] [id number] 12:53:00 Test Item Value Reference Range Interpretation Comments IRON (test code = 7852045442) 87 ug/dL 50-160 TIBC (test code = 4999707335) 385 ug/dL 250-410 % FE SAT (test code = 5245455983) 23 % 20-50 Lab Interpretation (test code = Normal 03699-6) [facility]aPTT2020-05-08 12:07:00 Test Item Value Reference Range Interpretation Comments APTT Patient (test code See_Comment [Au tomated message] = 3173-2) The system [employer] generated this result transmitted ref erence range: 26 - 36 Seconds. The reference range was not used to int erpret this result as normal/abnormal . Lab Interpretation (test Abnormal code = 44059-8) [facility]aPTT2020-05-08 12:07:00 Test Item Value Reference Range Interpretation Comments APTT Patient (test code See_Comment [Au tomated message] = 3173-2) The system [employer] generated this result transmitted ref erence range: 26 - 36 Seconds. The reference range was not used to int erpret this result as normal/abnormal . Lab Interpretation (test Abnormal code = 40855-6) [facility] [id number] 11:57:00 Test Item Value Reference Range Interpretation Comments TROPONIN I (test 0.046 ng/mL See_Comment H [Automated code = 6645464827) message] The system which generated this result [...] ? Lab Interpretation Abnormal (test code = 55833-7) [facility] TexasTR[facility] [id number] 11:57:00 Test Item Value Reference Range Interpretation Comments TROPONIN I (test 0.046 ng/mL See_Comment H [Automated code = 0768137204) message] The system which generated this result [...] ? Lab Interpretation Abnormal (test code = 28323-5) [facility]BAS[facility] METABOLIC PANEL (NA, K, CL, CO2, GLUCOSE, BUN, CREATININE, CA)2020-03-23 11:52:00 Test Item Value Reference Range Interpretation Comments NA (test code = 137 mmol/L 135-145 7812244179) K (test code = 4.1 mmol/L 3.5-5 7666839812) CL (test code = 102 mmol/L 98-108 4404503501) CO2 TOTAL (test code = 26 mmol/L 23-31 2835783997) AGAP (test code = 2-16 5553880820) BUN (test code = 18 mg/dL 7-23 1272018932) GLUCOSE (test code = 119 mg/dL 70-110 H 8739170801) CREATININE (test code = 1.14 mg/dL 0.6-1.25 7593601544) CALCIUM (test code = 9.1 mg/dL 8.6-10.6 6326623712) eGFR Calculation mL/min/1.73m2 (Non-) (test code = 1445275342) eGFR Calculation mL/min/1.73m2 () (test code = 2073517577) ALYSSA (test code = ALYSSA) Association of [...] tests). Lab Interpretation Abnormal (test code = 72002-5) [facility]MAGN[facility]UM2020-05-08 11:52:00 Test Item Value Reference Range Interpretation Comments MAGNESIUM (test code = 6221506720) 2.2 mg/dL 1.7-2.4 Lab Interpretation (test code = Normal 69655-7) [facility] (NA, K, CL, CO2, GLUCOSE, BUN, CREATININE, CA)2020-03-23 11:52:00 Test Item Value Reference Range Interpretation Comments NA (test code = 137 mmol/L 135-145 7027176913) K (test code = 4.1 mmol/L 3.5-5 0935637990) CL (test code = 102 mmol/L 98-108 3858085308) CO2 TOTAL (test code = 26 mmol/L 23-31 6949618999) AGAP (test code = 2-16 1107884548) BUN (test code = 18 mg/dL 7-23 5857045144) GLUCOSE (test code = 119 mg/dL 70-110 H 3803610408) CREATININE (test code = 1.14 mg/dL 0.6-1.25 0156522356) CALCIUM (test code = 9.1 mg/dL 8.6-10.6 1086552506) eGFR Calculation mL/min/1.73m2 (Non-) (test code = 5714255751) eGFR Calculation mL/min/1.73m2 () (test code = 7686738898) ALYSSA (test code = ALYSSA) Association of [...] tests). Lab Interpretation Abnormal (test code = 33255-7) [facility]MAG[facility]2020-05-08 11:52:00 Test Item Value Reference Range Interpretation Comments MAGNESIUM (test code = 6507945016) 2.2 mg/dL 1.7-2.4 Lab Interpretation (test code = Normal 19805-0) [facility] TexasProthrombin Time (PT) / [id number] 11:36:00 Test Item Value Reference Range Interpretation Comments PROTIME PATIENT (test See_Comment [Auto mated message] code = 5964-2) The system [employer] generated this result transmitted ref erence range: 10.1 - 1 2.6 Seconds. The re ference range was not u sed to interpret this result as normal/abnor mal. INR (test code = 6301-6) Nor mal INR <1.1; Warfarin Therap eutic range 2.0 to 3. 0 or 2.5 to 3.5, dep ending upon the indica tions. Lab Interpretation (test Normal code = 61244-7) [facility] TexasProthrombin Time (PT) / [id number] 11:36:00 Test Item Value Reference Range Interpretation Comments PROTIME PATIENT (test See_Comment [Auto mated message] code = 5964-2) The system [employer] generated this result transmitted ref erence range: 10.1 - 1 2.6 Seconds. The re ference range was not u sed to interpret this result as normal/abnor mal. INR (test code = 6301-6) Nor mal INR <1.1; Warfarin Therap eutic range 2.0 to 3. 0 or 2.5 to 3.5, dep ending upon the indica tions. Lab Interpretation (test Normal code = 20317-0) [facility] TexasTROP[facility]IN [id number] 06:38:00 Test Item Value Reference Range Interpretation Comments TROPONIN I (test 0.045 ng/mL See_Comment H [Automated code = 9092329272) message] The system which generated this result [...] ? Lab Interpretation Abnormal (test code = 14517-5) [facility] TexasKARINFORMERLY [facility]CH[facility]STOP[facility] [id number] 06:38:00 Test Item Value Reference Range Interpretation Comments TROPONIN I (test 0.045 ng/mL See_Comment H [Automated code = 1183622645) message] The system which generated this result [...] ? Lab Interpretation Abnormal (test code = 98129-9) [facility] METABOLIC PANEL (NA, K, CL, CO2, GLUCOSE, BUN, CREATININE, CA)2020-03-23 06:29:00 Test Item Value Reference Range Interpretation Comments NA (test code = 137 mmol/L 135-145 8112241734) K (test code = 3.6 mmol/L 3.5-5 1414471674) CL (test code = 101 mmol/L 98-108 7051966786) CO2 TOTAL (test code = 27 mmol/L 23-31 6959881974) AGAP (test code = 2-16 0224365842) BUN (test code = 19 mg/dL 7-23 8942056599) GLUCOSE (test code = 153 mg/dL 70-110 H 5200781729) CREATININE (test code = 1.22 mg/dL 0.6-1.25 0421042503) CALCIUM (test code = 8.9 mg/dL 8.6-10.6 7254688181) eGFR Calculation mL/min/1.73m2 (Non-) (test code = 6069144350) eGFR Calculation mL/min/1.73m2 () (test code = 0097165068) ALYSSA (test code = ALYSSA) Association of [...] tests). Lab Interpretation Abnormal (test code = 20817-8) [facility]MAGN[facility]IUM2020-05-08 06:29:00 Test Item Value Reference Range Interpretation Comments MAGNESIUM (test code = 6376785034) 1.7 mg/dL 1.7-2.4 Lab Interpretation (test code = Normal 62544-1) [facility] TexasLIPID PANEL (73105)(TOTAL CHOLESTEROL, TRIGLYCERIDES, HDL)2020-03-23 06:29:00 Test Item Value Reference Range Interpretation Comments CHOL (test code = 106 mg/dL 120-200 L 7080268880) HDL (test code = 46 mg/dL >40 7410799325) HDLC RATIO (test code = See_Comment [Au tomated message] 8467874870) The system [employer] generated this result transmit diamante reference range : <=5.0. The refe rence range was not u sed to interpret th is result as normal/abnormal . TRIG (test code = 74 mg/dL 30-170 2994928947) LDL CHOL (test code = 45 mg/dL See_Comment [Auto mated message] 37664-1) The system [employer] generated this result transmit diamante reference range : <=160. The refe rence range was not u sed to interpret th is result as normal/abnormal . VLDL (test code = 15 mg/dL 5-60 7265006436) Lab Interpretation (test Abnormal code = 84832-3) [facility] (NA, K, CL, CO2, GLUCOSE, BUN, CREATININE, CA)2020-03-23 06:29:00 Test Item Value Reference Range Interpretation Comments NA (test code = 137 mmol/L 135-145 9055969918) K (test code = 3.6 mmol/L 3.5-5 1311286633) CL (test code = 101 mmol/L 98-108 6784425036) CO2 TOTAL (test code = 27 mmol/L 23-31 4202745049) AGAP (test code = 2-16 9653614413) BUN (test code = 19 mg/dL 7-23 3475518743) GLUCOSE (test code = 153 mg/dL 70-110 H 3004866964) CREATININE (test code = 1.22 mg/dL 0.6-1.25 5992602388) CALCIUM (test code = 8.9 mg/dL 8.6-10.6 1092668832) eGFR Calculation mL/min/1.73m2 (Non-) (test code = 2271685312) eGFR Calculation mL/min/1.73m2 () (test code = 9115658039) ALYSSA (test code = ALYSSA) Association of [...] tests). Lab Interpretation Abnormal (test code = 32167-2) [facility]MAG[facility]2020-05-08 06:29:00 Test Item Value Reference Range Interpretation Comments MAGNESIUM (test code = 5052796573) 1.7 mg/dL 1.7-2.4 Lab Interpretation (test code = Normal 47223-7) [facility] TexasLIPID PANEL (11399)(TOTAL CHOLESTEROL, TRIGLYCERIDES, HDL)2020-03-23 06:29:00 Test Item Value Reference Range Interpretation Comments CHOL (test code = 106 mg/dL 120-200 L 9057283376) HDL (test code = 46 mg/dL >40 2287536265) HDLC RATIO (test code = See_Comment [Au tomated message] 1106708309) The system [employer] generated this result transmit diamante reference range : <=5.0. The refe rence range was not u sed to interpret th is result as normal/abnormal . TRIG (test code = 74 mg/dL 30-170 5432700502) LDL CHOL (test code = 45 mg/dL See_Comment [Auto mated message] 93046-3) The system [employer] generated this result transmit diamante reference range : <=160. The refe rence range was not u sed to interpret th is result as normal/abnormal . VLDL (test code = 15 mg/dL 5-60 9146400774) Lab Interpretation (test Abnormal code = 10637-5) [facility]aPTT2020-05-08 03:18:00 Test Item Value Reference Range Interpretation Comments APTT Patient (test code = See_Comment [ Automated message] 3173-2) The system [employer] generated this result transmitted ref erence range: 26 - 36 Seconds. The re ference range was not u sed to interpret this result as normal/abnor mal. Lab Interpretation (test Normal code = 22028-2) [facility]aPTT2020-05-08 03:18:00 Test Item Value Reference Range Interpretation Comments APTT Patient (test code = See_Comment [ Automated message] 3173-2) The system [employer] generated this result transmitted ref erence range: 26 - 36 Seconds. The re ference range was not u sed to interpret this result as normal/abnor mal. Lab Interpretation (test Normal code = 34568-5) [facility] TexasPROTHROMBIN TIME / [id number] 03:07:00 Test Item Value Reference Range Interpretation Comments PROTIME PATIENT (test See_Comment [Auto mated message] code = 5964-2) The system [employer] generated this result transmitted ref erence range: 10.1 - 1 2.6 Seconds. The re ference range was not u sed to interpret this result as normal/abnor mal. INR (test code = 6301-6) Nor mal INR <1.1; Warfarin Therap eutic range 2.0 to 3. 0 or 2.5 to 3.5, dep ending upon the indica tions. Lab Interpretation (test Normal code = 51432-9) [facility] TexasPROTHROMBIN TIME / [id number] 03:07:00 Test Item Value Reference Range Interpretation Comments PROTIME PATIENT (test See_Comment [Auto mated message] code = 5964-2) The system [employer] generated this result transmitted ref erence range: 10.1 - 1 2.6 Seconds. The re ference range was not u sed to interpret this result as normal/abnor mal. INR (test code = 6301-6) Nor mal INR <1.1; Warfarin Therap eutic range 2.0 to 3. 0 or 2.5 to 3.5, dep ending upon the indica tions. Lab Interpretation (test Normal code = 55064-9) [facility] CHEST 2 [id number] 02:23:32 No acute cardiopulmonary process. Preliminary Report [...] reviewed this study and agree with the abovereport.[facility] CHEST 2 [id number] 02:23:32 No acute cardiopulmonary process. Preliminary Report [...] reviewed this study and agree with the abovereport.[facility] TexasCORONAVIRUS COVID-19 [id number] 01:23:00 Test Item Value Reference Range Interpretation Comments SARS-CoV-2 (test code = Not Detected Not Detected 34230-9) ALYSSA (test code = ALYSSA) ID NOW COVID-19 Assay is an isothermal nucleic acid amplification test intended for the qualitative detection of nucleic acid from SARS-CoV-2 viral RNA in nasopharyngeal (SCREW MACHINE SETTER) specimens. It is used under Emergency [...] indicated. Lab Interpretation Normal (test code = 43669-2) [facility] TexasCORONAVIRUS COVID-19 [id number] 01:23:00 Test Item Value Reference Range Interpretation Comments SARS-CoV-2 (test code = Not Detected Not Detected 20780-0) ALYSSA (test code = ALYSSA) ID NOW COVID-19 Assay is an isothermal nucleic acid amplification test intended for the qualitative detection of nucleic acid from SARS-CoV-2 viral RNA in nasopharyngeal (SCREW MACHINE SETTER) specimens. It is used under Emergency [...] indicated. Lab Interpretation Normal (test code = 98357-3) [facility] TexasN-TERMINAL [id number] 00:12:00 Test Item Value Reference Range Interpretation Comments NT-proBNP (test code 585 pg/mL See_Comment H [Autom ated = 8720086679) message] The system which generated this result transmitted reference range : <=450. The reference range was not used to interpret this result as normal/abnormal . ALYSSA (test code = ALYSSA) Biotin has been reported to cause a negative bias, interpret results relative to patient's use of biotin. Lab Interpretation Abnormal (test code = 10837-8) [facility] [id number] 00:12:00 Test Item Value Reference Range Interpretation Comments TROPONIN I (test 0.030 ng/mL See_Comment [Automated code = 4576298978) message] The system which generated this result [...] ? Lab Interpretation Normal (test code = 44376-0) [facility] TexasN-[facility]AL [id number] 00:12:00 Test Item Value Reference Range Interpretation Comments NT-proBNP (test code 585 pg/mL See_Comment H [Autom ated = 5049829214) message] The system which generated this result transmitted reference range : <=450. The reference range was not used to interpret this result as normal/abnormal . ALYSSA (test code = ALYSSA) Biotin has been reported to cause a negative bias, interpret results relative to patient's use of biotin. Lab Interpretation Abnormal (test code = 39955-7) [facility] [id number] 00:12:00 Test Item Value Reference Range Interpretation Comments TROPONIN I (test 0.030 ng/mL See_Comment [Automated code = 3211366606) message] The system which generated this result [...] ? Lab Interpretation Normal (test code = 72943-9) [facility]. METABOLIC PANEL (23249)2020-03-23 00:03:00 Test Item Value Reference Range Interpretation Comments NA (test code = 138 mmol/L 135-145 5610459308) K (test code = 4.1 mmol/L 3.5-5 1153487019) CL (test code = 103 mmol/L 98-108 4134284084) CO2 TOTAL (test code = 26 mmol/L 23-31 1122187326) AGAP (test code = 2-16 8410712949) BUN (test code = 18 mg/dL 7-23 9919377074) GLUCOSE (test code = 157 mg/dL 70-110 H 3944265944) CREATININE (test code = 1.19 mg/dL 0.6-1.25 7640210427) TOTAL BILI (test code = 1.1 mg/dL 0.1-1.6 3484430599) CALCIUM (test code = 9.2 mg/dL 8.6-10.6 2993891562) T PROTEIN (test code = 6.8 g/dL 6.3-8.2 9476518713) ALBUMIN (test code = 4.0 g/dL 3.5-5 3483959551) ALK PHOS (test code = 51 U/L 34-122 9654224889) ALTv (test code = 16 U/L 5-50 1742-6) AST(SGOT) (test code = 23 U/L 13-40 5317540392) eGFR Calculation mL/min/1.73m2 (Non-) (test code = 4838502187) eGFR Calculation mL/min/1.73m2 () (test code = 2209274417) ALYSSA (test code = ALYSSA) Association of [...] tests). Lab Interpretation Abnormal (test code = 74291-0) [facility] METABOLIC PANEL (25665)2020-03-23 00:03:00 Test Item Value Reference Range Interpretation Comments NA (test code = 138 mmol/L 135-145 4605670436) K (test code = 4.1 mmol/L 3.5-5 2777132339) CL (test code = 103 mmol/L 98-108 4733696218) CO2 TOTAL (test code = 26 mmol/L 23-31 0090414429) AGAP (test code = 2-16 7868643138) BUN (test code = 18 mg/dL 7-23 1956337702) GLUCOSE (test code = 157 mg/dL 70-110 H 3480250511) CREATININE (test code = 1.19 mg/dL 0.6-1.25 4231383806) TOTAL BILI (test code = 1.1 mg/dL 0.1-1.1 2040604903) CALCIUM (test code = 9.2 mg/dL 8.6-10.6 1982105329) T PROTEIN (test code = 6.8 g/dL 6.3-8.2 5074007997) ALBUMIN (test code = 4.0 g/dL 3.5-5 6565877317) ALK PHOS (test code = 51 U/L 34-122 2414198680) ALTv (test code = 16 U/L 5-50 1742-6) AST(SGOT) (test code = 23 U/L 13-40 9432800211) eGFR Calculation mL/min/1.73m2 (Non-) (test code = 5342843800) eGFR Calculation mL/min/1.73m2 () (test code = 8394194175) ALYSSA (test code = ALYSSA) Association of [...] tests). Lab Interpretation Abnormal (test code = 14555-2) [facility] WITH [id number] 23:57:00 Test Item Value Reference Range Interpretation [...] RDW-SD (test code = 49.6 fL 38.5-51.6 74593-4) RDW-CV (test code = 14.6 % 12.1-15.4 788-0) PLT (test code = See_Comment L [Automated 777-3) message] The sy stem which generated this result transmitted reference range : 150 - 328 10*3/ ?L. The reference r corey was not used to interpret this result as normal/abnormal . MPV (test code = 9.9 fL 9.8-13 87905-4) NRBC/100 WBC (test See_Comment [Automat ed code = 5740223900) message] The system which generated this result transmitted reference range : 0.0 - 10.0 /100 WBCs. The refer ence range was not u sed to interpret th is result as normal/abnormal . NRBC x10^3 (test code <0.01 See_Comment [Auto mated = 5533926908) message] The s ystem which generated this result transmitted reference range : 10*3/?L. The reference range was not used to interpret this result as normal/abnormal . GRAN MAT (NEUT) % 55.3 % (test code = 770-8) IMM GRAN % (test code 0.20 % = 0563157572) LYMPH % (test code = 28.3 % 736-9) MONO % (test code = 12.6 % 5905-5) EOS % (test code = 3.1 % 713-8) BASO % (test code = 0.5 % 706-2) GRAN MAT x10^3(ANC) 3.20 10*3/uL 1.99-6.95 (test code = 4700345721) IMM GRAN x10^3 (test <0.03 0-0.06 code = 9417986671) LYMPH x10^3 (test code 1.64 10*3/uL 1.09-3.23 = 731-0) MONO x10^3 (test code 0.73 10*3/uL 0.36-1.02 = 742-7) EOS x10^3 (test code = 0.18 10*3/uL 0.06-0.53 711-2) BASO x10^3 (test code 0.03 10*3/uL 0.01-0.09 = 704-7) Lab Interpretation Abnormal (test code = 17610-3) [facility] WITH [id number] 23:57:00 Test Item Value Reference Range Interpretation [...] RDW-SD (test code = 49.6 fL 38.5-51.6 16023-5) RDW-CV (test code = 14.6 % 12.1-15.4 788-0) PLT (test code = See_Comment L [Automated 777-3) message] The sy stem which generated this result transmitted reference range : 150 - 328 10*3/ ?L. The reference r corey was not used to interpret this result as normal/abnormal . MPV (test code = 9.9 fL 9.8-13 38800-1) NRBC/100 WBC (test See_Comment [Automat ed code = 3496275183) message] The system which generated this result transmitted reference range : 0.0 - 10.0 /100 WBCs. The refer ence range was not u sed to interpret th is result as normal/abnormal . NRBC x10^3 (test code <0.01 See_Comment [Auto mated = 5520848440) message] The s ystem which generated this result transmitted reference range : 10*3/?L. The reference range was not used to interpret this result as normal/abnormal . GRAN MAT (NEUT) % 55.3 % (test code = 770-8) IMM GRAN % (test code 0.20 % = 4695634004) LYMPH % (test code = 28.3 % 736-9) MONO % (test code = 12.6 % 5905-5) EOS % (test code = 3.1 % 713-8) BASO % (test code = 0.5 % 706-2) GRAN MAT x10^3(ANC) 3.20 10*3/uL 1.99-6.95 (test code = 6801944411) IMM GRAN x10^3 (test <0.03 0-0.06 code = 2399005406) LYMPH x10^3 (test code 1.64 10*3/uL 1.09-3.23 = 731-0) MONO x10^3 (test code 0.73 10*3/uL 0.36-1.02 = 742-7) EOS x10^3 (test code = 0.18 10*3/uL 0.06-0.53 711-2) BASO x10^3 (test code 0.03 10*3/uL 0.01-0.09 = 704-7) Lab Interpretation Abnormal (test code = 98469-1) [facility]19 [id number] 21:48:00 Test Item Value Reference Range Interpretation Comments SARS-CoV-2 (test code = Not Detected Not Detected 21621-0) ALYSSA (test code = ALYSSA) ID NOW COVID-19 Assay is an isothermal nucleic acid amplification test intended for the qualitative detection of nucleic acid from SARS-CoV-2 viral RNA in nasopharyngeal (SCREW MACHINE SETTER) specimens. It is used under Emergency [...] indicated. Lab Interpretation Normal (test code = 85527-1) [facility] TexasTroponin [id number] 21:44:00 Test Item Value Reference Range Interpretation Comments TROPONIN I (test 0.027 ng/mL See_Comment [Automated code = 7544084976) message] The system which generated this result [...] ? Lab Interpretation Normal (test code = 17697-0) [facility] TexasProthrombin Time (PT) / [id number] 21:41:00 Test Item Value Reference Range Interpretation [...] tions. Lab Interpretation (test Normal code = 78934-3) [facility] TexasN-TERMINAL [id number] 21:39:00 Test Item Value Reference Range Interpretation Comments NT-proBNP (test code 663 pg/mL See_Comment H [Autom ated = 2664756864) message] The system which generated this result transmitted reference range : <=450. The reference range was not used to interpret this result as normal/abnormal . ALYSSA (test code = ALYSSA) Biotin has been reported to cause a negative bias, interpret results relative to patient's use of biotin. Lab Interpretation Abnormal (test code = 18355-1) [facility]. METABOLIC PANEL (23111)2020-03-21 21:37:00 Test Item Value Reference Range Interpretation Comments NA (test code = 139 mmol/L 135-145 8166161034) K (test code = 4.1 mmol/L 3.5-5 9581774861) CL (test code = 102 mmol/L 98-108 5404337255) CO2 TOTAL (test code = 29 mmol/L 23-31 7291719635) AGAP (test code = 2-16 2889462738) BUN (test code = 18 mg/dL 7-23 9094504423) GLUCOSE (test code = 277 mg/dL 70-110 H 7903800414) CREATININE (test code = 1.23 mg/dL 0.6-1.25 9917558676) TOTAL BILI (test code = 1.3 mg/dL 0.1-1.1 H 1753846166) CALCIUM (test code = 9.8 mg/dL 8.6-10.6 0349239208) T PROTEIN (test code = 7.0 g/dL 6.3-8.2 0782675028) ALBUMIN (test code = 4.2 g/dL 3.5-5 0584358190) ALK PHOS (test code = 50 U/L 34-122 5471060360) ALTv (test code = 15 U/L 5-50 1742-6) AST(SGOT) (test code = 22 U/L 13-40 0906794190) eGFR Calculation mL/min/1.73m2 (Non-) (test code = 9798377169) eGFR Calculation mL/min/1.73m2 () (test code = 1259891306) ALYSSA (test code = ALYSSA) Association of [...] tests). Lab Interpretation Abnormal (test code = 28209-5) [facility] TexasLipase [id number] 21:37:00 Test Item Value Reference Range Interpretation Comments LIPASE (test code = 9922710421) 161 U/L 0-220 Lab Interpretation (test code = Normal 62435-8) [facility] TexasChes 1 [id number] 20:46:31HISTORY: Chest pain. TECHNIQUE: Portable AP view of the chest is obtained. Comparison made with03/04/2020 study. FINDINGS: No acute pneumonia. No pneumothorax or pleural effusion orpulmonary congestion detected. Mild cardiomegaly and intrathecal electrodesin lower thoracic spinal canal noted. Mild thoracolumbar scoliosis noted. CONCLUSIONS: Mild cardiomegaly.[facility], Radiant Results Inft User - 03/21/2020 3:47 PM CDTHISTORY: Chest pain.TECHNIQUE: Portable AP view of the chest is obtained. Comparison made with03/04/2020 study.FINDINGS: No acute pneumonia. No pneumothorax or pleural effusion orpulmonary congestion detected. Mild cardiomegaly and intrathecal electrodesin lower thoracic spinal canal noted. Mild thoracolumbar scoliosis noted.CONCLUSIONS: Mild cardiomegaly. [facility] TexasLatnic Acid Whole [id number] 20:43:00 Test Item Value Reference Range Interpretation Comments LACTIC ACID (test code = 1.91 mmol/L 0.3-2.6 2534992799) [facility] GLUCOSE (AUTOMATED)2020-03-07 20:58:00 Test Item Value Reference Range Interpretation Comments POCT GLU (test code = 3133761944) 216 mg/dL 70-110 H Lab Interpretation (test code = Abnormal 92010-3) [facility] GLUCOSE (AUTOMATED)2020-03-07 16:00:00 Test Item Value Reference Range Interpretation Comments POCT GLU (test code = 8365239225) 168 mg/dL 70-110 H Lab Interpretation (test code = Abnormal 46615-8) [facility] GLUCOSE (AUTOMATED)2020-03-07 13:07:00 Test Item Value Reference Range Interpretation Comments POCT GLU (test code = 5437394151) 148 mg/dL 70-110 H Lab Interpretation (test code = Abnormal 57245-7) [facility] TexasTROPONIN [id number] 11:27:00 Test Item Value Reference Range Interpretation Comments TROPONIN I (test 0.051 ng/mL See_Comment H [Automated code = 0675719193) message] The system which generated this result [...] ? Lab Interpretation Abnormal (test code = 12882-4) [facility] TexasN-TERMINAL [id number] 11:24:00 Test Item Value Reference Range Interpretation Comments NT-proBNP (test code 336 pg/mL See_Comment [Autom ated = 8272091435) message] The system which generated this result transmitted reference range : <=450. The reference range was not used to interpret this result as normal/abnormal . ALYSSA (test code = ALYSSA) Biotin has been reported to cause a negative bias, interpret results relative to patient's use of biotin. Lab Interpretation Normal (test code = 43740-7) [facility] Met[facility] (NA, K, CL, CO2, GLUCOSE, BUN, CREATININE, CA)2020-03-07 11:14:00 Test Item Value Reference Range Interpretation Comments NA (test code = 138 mmol/L 135-145 5769834643) K (test code = 3.8 mmol/L 3.5-5 4123938395) CL (test code = 97 mmol/L 98-108 L 7359595401) CO2 TOTAL (test code = 30 mmol/L 23-31 0389258391) AGAP (test code = 2-16 2738309559) BUN (test code = 36 mg/dL 7-23 H 3700094304) GLUCOSE (test code = 140 mg/dL 70-110 H 5239747886) CREATININE (test code = 1.50 mg/dL 0.6-1.25 H 3656363822) CALCIUM (test code = 10.0 mg/dL 8.6-10.6 0430489155) eGFR Calculation mL/min/1.73m2 (Non-) (test code = 9931070780) eGFR Calculation mL/min/1.73m2 () (test code = 9577238543) ALYSSA (test code = ALYSSA) Association of [...] tests). Lab Interpretation Abnormal (test code = 39874-7) [facility] TexasURIC [id number] 11:14:00 Test Item Value Reference Range Interpretation Comments URIC ACID (test code = 6164915583) 5.4 mg/dL 3.6-8 Lab Interpretation (test code = Normal 62256-1) [facility] TexasCB WITH [id number] 10:53:00 Test Item Value Reference Range Interpretation Comments WBC (test code = See_Comment [Automated 1003-2) message] The sy stem which generated this result transmitted reference range : 4.20 - 10.70 10*3/?L. The reference range was not used to interpret this result as normal/abnormal . RBC (test code = See_Comment L [Automated 719-3) message] The sy stem which generated this [...] RDW-SD (test code = 45.1 fL 38.5-51.6 74553-4) RDW-CV (test code = 14.2 % 12.1-15.4 788-0) PLT (test code = See_Comment [Automated 777-3) message] The sy stem which generated this result transmitted reference range : 150 - 328 10*3/ ?L. The reference r corey was not used to interpret this result as normal/abnormal . MPV (test code = 9.8 fL 9.8-13 05860-7) NRBC/100 WBC (test See_Comment [Automat ed code = 2273894384) message] The system which generated this result transmitted reference range : 0.0 - 10.0 /100 WBCs. The refer ence range was not u sed to interpret th is result as normal/abnormal . NRBC x10^3 (test code <0.01 See_Comment [Auto mated = 0501463007) message] The s ystem which generated this result transmitted reference range : 10*3/?L. The reference range was not used to interpret this result as normal/abnormal . GRAN MAT (NEUT) % 51.0 % (test code = 770-8) IMM GRAN % (test code 0.50 % = 8995660153) LYMPH % (test code = 32.0 % 736-9) MONO % (test code = 11.3 % 5905-5) EOS % (test code = 4.3 % 713-8) BASO % (test code = 0.9 % 706-2) GRAN MAT x10^3(ANC) 2.85 10*3/uL 1.99-6.95 (test code = 7738295873) IMM GRAN x10^3 (test 0.03 10*3/uL 0-0.06 code = 4473758692) LYMPH x10^3 (test code 1.79 10*3/uL 1.09-3.23 = 731-0) MONO x10^3 (test code 0.63 10*3/uL 0.36-1.02 = 742-7) EOS x10^3 (test code = 0.24 10*3/uL 0.06-0.53 711-2) BASO x10^3 (test code 0.05 10*3/uL 0.01-0.09 = 704-7) Lab Interpretation Abnormal (test code = 31325-2) [facility] GLUCOSE (AUTOMATED)2020-03-06 22:46:00 Test Item Value Reference Range Interpretation Comments POCT GLU (test code = 8978428154) 209 mg/dL 70-110 H Lab Interpretation (test code = Abnormal 29501-2) [facility] GLUCOSE (AUTOMATED)2020-03-06 16:23:00 Test Item Value Reference Range Interpretation Comments POCT GLU (test code = 8435020395) 254 mg/dL 70-110 H Lab Interpretation (test code = Abnormal 49970-3) [facility] GLUCOSE (AUTOMATED)2020-03-06 12:51:00 Test Item Value Reference Range Interpretation Comments POCT GLU (test code = 3549518687) 126 mg/dL 70-110 H Lab Interpretation (test code = Abnormal 52527-0) [facility] TexasTROPONIN [id number] 10:16:00 Test Item Value Reference Range Interpretation Comments TROPONIN I (test 0.056 ng/mL See_Comment H [Automated code = 1804374948) message] The system which generated this result [...] ? Lab Interpretation Abnormal (test code = 56044-5) [facility] Met[facility] Panel (NA, K, CL, CO2, GLUCOSE, BUN, CREATININE, CA)2020-03-06 10:13:00 Test Item Value Reference Range Interpretation Comments NA (test code = 136 mmol/L 135-145 2186780733) K (test code = 4.1 mmol/L 3.5-5 4275600478) CL (test code = 95 mmol/L 98-108 L 3267723264) CO2 TOTAL (test code = 30 mmol/L 23-31 0338091594) AGAP (test code = 2-16 0989791431) BUN (test code = 35 mg/dL 7-23 H 0718779105) GLUCOSE (test code = 174 mg/dL 70-110 H 7909552138) CREATININE (test code = 1.67 mg/dL 0.6-1.25 H 2283366543) CALCIUM (test code = 9.7 mg/dL 8.6-10.6 1207403141) eGFR Calculation mL/min/1.73m2 (Non-) (test code = 0948653109) eGFR Calculation mL/min/1.73m2 () (test code = 6633911865) ALYSSA (test code = ALYSSA) Association of [...] tests). Lab Interpretation Abnormal (test code = 28831-3) [facility] WITH [id number] 09:16:00 Test Item Value Reference Range Interpretation [...] RDW-SD (test code = 45.6 fL 38.5-51.6 47298-6) RDW-CV (test code = 14.3 % 12.1-15.4 788-0) PLT (test code = See_Comment [Automated 777-3) message] The sy stem which generated this result transmitted reference range : 150 - 328 10*3/ ?L. The reference r corey was not used to interpret this result as normal/abnormal . MPV (test code = 9.8 fL 9.8-13 78702-9) NRBC/100 WBC (test See_Comment [Automat ed code = 8016027292) message] The system which generated this result transmitted reference range : 0.0 - 10.0 /100 WBCs. The refer ence range was not u sed to interpret th is result as normal/abnormal . NRBC x10^3 (test code <0.01 See_Comment [Auto mated = 4691440246) message] The s ystem which generated this result transmitted reference range : 10*3/?L. The reference range was not used to interpret this result as normal/abnormal . GRAN MAT (NEUT) % 56.1 % (test code = 770-8) IMM GRAN % (test code 0.10 % = 0495888765) LYMPH % (test code = 29.7 % 736-9) MONO % (test code = 9.6 % 5905-5) EOS % (test code = 3.8 % 713-8) BASO % (test code = 0.7 % 706-2) GRAN MAT x10^3(ANC) 3.79 10*3/uL 1.99-6.95 (test code = 0617227776) IMM GRAN x10^3 (test <0.03 0-0.06 code = 7581569250) LYMPH x10^3 (test code 2.01 10*3/uL 1.09-3.23 = 731-0) MONO x10^3 (test code 0.65 10*3/uL 0.36-1.02 = 742-7) EOS x10^3 (test code = 0.26 10*3/uL 0.06-0.53 711-2) BASO x10^3 (test code 0.05 10*3/uL 0.01-0.09 = 704-7) Lab Interpretation Abnormal (test code = 93939-5) [facility] GLUCOSE (AUTOMATED)2020-03-06 01:25:00 Test Item Value Reference Range Interpretation Comments POCT GLU (test code = 3436385588) 208 mg/dL 70-110 H Lab Interpretation (test code = Abnormal 89146-4) [facility] TexasGUERONIN [id number] 00:08:00 Test Item Value Reference Range Interpretation Comments TROPONIN I (test 0.047 ng/mL See_Comment H [Automated code = 8566029587) message] The system which generated this result [...] ? Lab Interpretation Abnormal (test code = 18080-8) [facility] GLUCOSE (AUTOMATED)2020-03-05 21:19:00 Test Item Value Reference Range Interpretation Comments POCT GLU (test code = 2767663536) 234 mg/dL 70-110 H Lab Interpretation (test code = Abnormal 55604-5) [facility] GLUCOSE (AUTOMATED)2020-03-05 16:55:00 Test Item Value Reference Range Interpretation Comments POCT GLU (test code = 2384542319) 258 mg/dL 70-110 H Lab Interpretation (test code = Abnormal 34186-5) [facility]PO[facility])2020-03-05 12:59:00 Test Item Value Reference Range Interpretation Comments POCT GLU (test code = 1506566995) 194 mg/dL 70-110 H Lab Interpretation (test code = Abnormal 82542-6) [facility] TexasTROPONIN [id number] 10:54:00 Test Item Value Reference Range Interpretation Comments TROPONIN I (test 0.071 ng/mL See_Comment H [Automated code = 1212794001) message] The system which generated this result [...] ? Lab Interpretation Abnormal (test code = 15598-5) [facility]Basic Metabolic Panel (NA, K, CL, CO2, GLUCOSE, BUN, CREATININE, CA)2020-03-05 10:43:00 Test Item Value Reference Range Interpretation Comments NA (test code = 139 mmol/L 135-145 8875742051) K (test code = 4.1 mmol/L 3.5-5 2336950014) CL (test code = 101 mmol/L 98-108 8162308169) CO2 TOTAL (test code = 27 mmol/L 23-31 9244018118) AGAP (test code = 2-16 2664190067) BUN (test code = 25 mg/dL 7-23 H 3287237648) GLUCOSE (test code = 243 mg/dL 70-110 H 9324970839) CREATININE (test code = 1.22 mg/dL 0.6-1.25 0416731665) CALCIUM (test code = 9.8 mg/dL 8.6-10.6 0359675643) eGFR Calculation mL/min/1.73m2 (Non-) (test code = 6300718673) eGFR Calculation mL/min/1.73m2 () (test code = 4979988054) ALYSSA (test code = ALYSSA) Association of [...] tests). Lab Interpretation Abnormal (test code = 38298-5) [facility] WITH [id number] 10:23:00 Test Item Value Reference Range Interpretation Comments WBC (test code = See_Comment [Automated message] 6690-2) The system [employer] generated this result transmitted ref erence range: 4.20 - 1 0.70 10*3/?L. The re ference range was not u sed to interpret this result as normal/abnor mal. RBC (test code = See_Comment [Automated message] 789-8) The system [employer] generated this result transmitted ref erence range: [...] RDW-SD (test code 47.8 fL 38.5-51.6 = 82649-7) RDW-CV (test code 14.4 % 12.1-15.4 = 788-0) PLT (test code = See_Comment [Automated message] 777-3) The system [employer] generated this result transmitted ref erence range: 150 - 32 8 10*3/?L. The re ference range was not u sed to interpret this result as normal/abnor mal. MPV (test code = 9.8 fL 9.8-13 57956-6) NRBC/100 WBC (test See_Comment [Automat ed message] code = 6348862766) The syste [employer] which generated this result transmitted ref erence range: 0.0 - 10 .0 /100 WBCs. The refer ence range was not u sed to interpret this result as normal/abnor mal. NRBC x10^3 (test <0.01 See_Comment [Automated message] code = 7780035707) The syste m which generated this result transmitted ref erence range: 10*3/?L. The reference range was not used to interpr et this result as normal/abnormal . GRAN MAT (NEUT) % 48.8 % (test code = 770-8) IMM GRAN % (test 0.20 % code = 2008527718) LYMPH % (test code 34.7 % = 736-9) MONO % (test code 10.8 % = 5905-5) EOS % (test code = 4.9 % 713-8) BASO % (test code 0.6 % = 706-2) GRAN MAT 2.49 10*3/uL 1.99-6.95 x10^3(ANC) (test code = 7616909486) IMM GRAN x10^3 <0.03 0-0.06 (test code = 8370064473) LYMPH x10^3 (test 1.77 10*3/uL 1.09-3.23 code = 731-0) MONO x10^3 (test 0.55 10*3/uL 0.36-1.02 code = 742-7) EOS x10^3 (test 0.25 10*3/uL 0.06-0.53 code = 711-2) BASO x10^3 (test 0.03 10*3/uL 0.01-0.09 code = 704-7) [facility] TexasXR CHEST 1 [id number] 03:06:08 No acute cardiopulmonary process. Unchanged enlargement [...] reviewed this study and agree with the abovereport.[facility] CORONAVIRUS COVID-19 [id number] 00:34:00 Test Item Value Reference Range Interpretation Comments SARS-CoV-2 (test code = Not Detected Not Detected 17316-1) ALYSSA (test code = ALYSSA) ID NOW COVID-19 Assay is an isothermal nucleic acid amplification test intended for the qualitative detection of nucleic acid from SARS-CoV-2 viral RNA in nasopharyngeal (SCREW MACHINE SETTER) specimens. It is used under Emergency [...] indicated. Lab Interpretation Normal (test code = 71583-1) [facility] TexasTroponin [id number] 00:08:00 Test Item Value Reference Range Interpretation Comments TROPONIN I (test 0.056 ng/mL See_Comment H [Automated code = 0491699963) message] The system which generated this result [...] ? Lab Interpretation Abnormal (test code = 33395-6) [facility] TexasN-TERMINAL [id number] 00:04:00 Test Item Value Reference Range Interpretation Comments NT-proBNP (test code 562 pg/mL See_Comment H [Autom ated = 2478789503) message] The system which generated this result transmitted reference range : <=450. The reference range was not used to interpret this result as normal/abnormal . ALYSSA (test code = ALYSSA) Biotin has been reported to cause a negative bias, interpret results relative to patient's use of biotin. Lab Interpretation Abnormal (test code = 54544-0) [facility] TexasProthrombin Time (PT) / [id number] 23:57:00 Test Item Value Reference Range Interpretation [...] tions. Lab Interpretation (test Normal code = 73769-2) [facility] TexasBasi Metabolic Panel (NA, K, CL, CO2, GLUCOSE, BUN, CREATININE, CA)2020-03-04 23:56:00 Test Item Value Reference Range Interpretation Comments NA (test code = 139 mmol/L 135-145 0272161662) K (test code = 4.1 mmol/L 3.5-5 7666534180) CL (test code = 102 mmol/L 98-108 9902223040) CO2 TOTAL (test code = 29 mmol/L 23-31 1606736902) AGAP (test code = 2-16 8735867890) BUN (test code = 23 mg/dL 7-23 7668832354) GLUCOSE (test code = 193 mg/dL 70-110 H 6316305382) CREATININE (test code = 1.25 mg/dL 0.6-1.25 5566950611) CALCIUM (test code = 9.7 mg/dL 8.6-10.6 0548443004) eGFR Calculation mL/min/1.73m2 (Non-) (test code = 9994369718) eGFR Calculation mL/min/1.73m2 () (test code = 6091488449) ALYSSA (test code = ALYSSA) Association of [...] tests). Lab Interpretation Abnormal (test code = 99269-2) [facility] TexasHepatic Function Panel (ALB, T.PRO, BILI T, BU/BC, ALT, AST, ALK PHOS)2020-03-04 23:56:00 Test Item Value Reference Range Interpretation Comments TOTAL BILI (test code = 0754241209) 1.1 mg/dL 0.1-1.1 BILI UNCON (test code = 9368223057) 1.1 mg/dL 0.1-1.1 BILI CONJ (test code = 8057902967) 0.0 mg/dL 0-0.3 T PROTEIN (test code = 4624900905) 7.1 g/dL 6.3-8.2 ALBUMIN (test code = 8401182164) 4.1 g/dL 3.5-5 ALK PHOS (test code = 9212526527) 61 U/L 34-122 ALTv (test code = 1742-6) 16 U/L 5-50 AST(SGOT) (test code = 6450930211) 23 U/L 13-40 Lab Interpretation (test code = Normal 70671-1) [facility] TexasLipase [id number] 23:56:00 Test Item Value Reference Range Interpretation Comments LIPASE (test code = 0710420966) 149 U/L 0-220 Lab Interpretation (test code = Normal 62065-3) [facility] TexasaPTT2020-04-19 23:56:00 Test Item Value Reference Range Interpretation Comments APTT Patient (test See_Comment [Automat ed code = 3173-2) message] The system which generated this result transmitted reference range : 23 - 38 Seconds . The reference range was not used to interpr et this result as normal/abnormal . ALYSSA (test code = ALYSSA) The [facility] patient population mean normal value for aPTT is 30 seconds. Lab Interpretation Normal (test code = 48180-1) [facility] TexasCBC WITH [id number] 23:46:00 Test Item Value Reference Range Interpretation [...] RDW-SD (test code = 48.3 fL 38.5-51.6 11204-4) RDW-CV (test code = 14.7 % 12.1-15.4 788-0) PLT (test code = See_Comment [Automated 777-3) message] The sy stem which generated this result transmitted reference range : 150 - 328 10*3/ ?L. The reference r corey was not used to interpret this result as normal/abnormal . MPV (test code = 9.8 fL 9.8-13 95421-8) NRBC/100 WBC (test See_Comment [Automat ed code = 1455230239) message] The system which generated this result transmitted reference range : 0.0 - 10.0 /100 WBCs. The refer ence range was not u sed to interpret th is result as normal/abnormal . NRBC x10^3 (test code <0.01 See_Comment [Auto mated = 0849019552) message] The s ystem which generated this result transmitted reference range : 10*3/?L. The reference range was not used to interpret this result as normal/abnormal . GRAN MAT (NEUT) % 60.1 % (test code = 770-8) IMM GRAN % (test code 0.20 % = 2327307148) LYMPH % (test code = 26.4 % 736-9) MONO % (test code = 9.9 % 5905-5) EOS % (test code = 2.8 % 713-8) BASO % (test code = 0.6 % 706-2) GRAN MAT x10^3(ANC) 3.17 10*3/uL 1.99-6.95 (test code = 1609965473) IMM GRAN x10^3 (test <0.03 0-0.06 code = 7579765957) LYMPH x10^3 (test code 1.39 10*3/uL 1.09-3.23 = 731-0) MONO x10^3 (test code 0.52 10*3/uL 0.36-1.02 = 742-7) EOS x10^3 (test code = 0.15 10*3/uL 0.06-0.53 711-2) BASO x10^3 (test code 0.03 10*3/uL 0.01-0.09 = 704-7) Lab Interpretation Abnormal (test code = 59811-2) [facility] GLUCOSE (AUTOMATED)2020-03-02 16:04:00 Test Item Value Reference Range Interpretation Comments POCT GLU (test code = 8032770713) 214 mg/dL 70-110 H Lab Interpretation (test code = Abnormal 87425-1) [facility] GLUCOSE (AUTOMATED)2020-03-02 16:04:00 Test Item Value Reference Range Interpretation Comments POCT GLU (test code = 4372225945) 271 mg/dL 70-110 H Lab Interpretation (test code = Abnormal 22587-9) [facility] [id number] 09:43:00 Test Item Value Reference Range Interpretation Comments NT-proBNP (test code 1670 pg/mL See_Comment H [Autom ated = 6697453028) message] The system which generated this result transmitted reference range : <=450. The reference range was not used to interpret this result as normal/abnormal . ALYSSA (test code = ALYSSA) Biotin has been reported to cause a negative bias, interpret results relative to patient's use of biotin. Lab Interpretation Abnormal (test code = 26802-2) [facility] (NA, K, CL, CO2, GLUCOSE, BUN, CREATININE, CA)2020-03-02 09:33:00 Test Item Value Reference Range Interpretation Comments NA (test code = 143 mmol/L 135-145 6834865073) K (test code = 3.8 mmol/L 3.5-5 3252348705) CL (test code = 105 mmol/L 98-108 4892631777) CO2 TOTAL (test code = 28 mmol/L 23-31 4465616592) AGAP (test code = 2-16 5194982888) BUN (test code = 19 mg/dL 7-23 4872985623) GLUCOSE (test code = 152 mg/dL 70-110 H 8544473810) CREATININE (test code = 1.18 mg/dL 0.6-1.25 9756510623) CALCIUM (test code = 9.0 mg/dL 8.6-10.6 5491853969) eGFR Calculation mL/min/1.73m2 (Non-) (test code = 9161433267) eGFR Calculation mL/min/1.73m2 () (test code = 7031485067) ALYSSA (test code = ALYSSA) Association of [...] tests). Lab Interpretation Abnormal (test code = 32128-2) [facility] Test Item Value Reference Range Interpretation Comments MAGNESIUM (test code = 7946751727) 1.8 mg/dL 1.7-2.4 Lab Interpretation (test code = Normal 72394-3) [facility]2020-03-01 20:42:00 Test Item Value Reference Range Interpretation Comments POCT GLU (test code = 4224895922) 231 mg/dL 70-110 H Lab Interpretation (test code = Abnormal 90756-5) [facility]VITAMIN B12, [id number] 11:51:00 Test Item Value Reference Range Interpretation Comments VIT B12 (test code = 325 pg/mL 240-930 8432490224) ALYSSA (test code = ALYSSA) Biotin has been reported to cause a positive bias, interpret results relative to patient's use of biotin. Lab Interpretation (test Normal code = 15238-5) [facility]2020-04-16 11:49:00 Test Item Value Reference Range Interpretation Comments FOLATE SER (test code = >20.0 3-20 H Slig ht hemolysis 4932951352) Lab Interpretation (test Abnormal code = 79109-1) [facility] TexasPROCALCITONIN2020-04-16 10:49:00 Test Item Value Reference Range Interpretation Comments Procalcitonin (test 3.05 ng/mL <0.07 H code = 2896307858) ALYSSA (test code = ALYSSA) INTERPRETATION OF [...] lung abscess/empyema. For further information please refer to:[email or web address] Lab Interpretation Abnormal (test code = 43504-6) [facility] TexasKARINSANTOS [id number] 09:58:00 Test Item Value Reference Range Interpretation Comments TROPONIN I (test 0.093 ng/mL See_Comment H [Automated code = 4611690836) message] The system which generated this result [...] ? Lab Interpretation Abnormal (test code = 43006-1) [facility] [id number] 09:55:00 Test Item Value Reference Range Interpretation Comments NT-proBNP (test code 4450 pg/mL See_Comment H [Autom ated = 3878159816) message] The system which generated this result transmitted reference range : <=450. The reference range was not used to interpret this result as normal/abnormal . ALYSSA (test code = ALYSSA) Biotin has been reported to cause a negative bias, interpret results relative to patient's use of biotin. Lab Interpretation Abnormal (test code = 45988-8) [facility] Metabolic Panel (NA, K, CL, CO2, GLUCOSE, BUN, CREATININE, CA)2020-03-01 09:50:00 Test Item Value Reference Range Interpretation Comments NA (test code = 141 mmol/L 135-145 3815713565) K (test code = 3.5 mmol/L 3.5-5 9125992993) CL (test code = 105 mmol/L 98-108 9044521045) CO2 TOTAL (test code = 26 mmol/L 23-31 3204663226) AGAP (test code = 2-16 6569429109) BUN (test code = 13 mg/dL 7-23 1598709325) GLUCOSE (test code = 219 mg/dL 70-110 H 5892531133) CREATININE (test code = 1.01 mg/dL 0.6-1.25 0347727497) CALCIUM (test code = 8.7 mg/dL 8.6-10.6 2968766093) eGFR Calculation mL/min/1.73m2 (Non-) (test code = 8046081823) eGFR Calculation mL/min/1.73m2 () (test code = 1329820948) ALYSSA (test code = ALYSSA) Association of [...] tests). Lab Interpretation Abnormal (test code = 58614-1) [facility] [id number] 09:50:00 Test Item Value Reference Range Interpretation Comments MAGNESIUM (test code = 4476136625) 1.9 mg/dL 1.7-2.4 Lab Interpretation (test code = Normal 42634-5) [facility] WITH [id number] 09:22:00 Test Item Value Reference Range Interpretation [...] RDW-SD (test code = 47.8 fL 38.5-51.6 44865-2) RDW-CV (test code = 14.8 % 12.1-15.4 788-0) PLT (test code = See_Comment L [Automated 777-3) message] The sy stem which generated this result transmitted reference range : 150 - 328 10*3/ ?L. The reference r corey was not used to interpret this result as normal/abnormal . MPV (test code = 9.9 fL 9.8-13 86100-8) NRBC/100 WBC (test See_Comment [Automat ed code = 9646324276) message] The system which generated this result transmitted reference range : 0.0 - 10.0 /100 WBCs. The refer ence range was not u sed to interpret th is result as normal/abnormal . NRBC x10^3 (test code <0.01 See_Comment [Auto mated = 4636935547) message] The s [employer] which generated this result transmitted reference range : 10*3/?L. The reference range was not used to interpret this result as normal/abnormal . GRAN MAT (NEUT) % 66.0 % (test code = 770-8) IMM GRAN % (test code 0.30 % = 0168329694) LYMPH % (test code = 20.8 % 736-9) MONO % (test code = 9.5 % 5905-5) EOS % (test code = 2.8 % 713-8) BASO % (test code = 0.6 % 706-2) GRAN MAT x10^3(ANC) 4.44 10*3/uL 1.99-6.95 (test code = 1999456379) IMM GRAN x10^3 (test <0.03 0-0.06 code = 7197058267) LYMPH x10^3 (test code 1.40 10*3/uL 1.09-3.23 = 731-0) MONO x10^3 (test code 0.64 10*3/uL 0.36-1.02 = 742-7) EOS x10^3 (test code = 0.19 10*3/uL 0.06-0.53 711-2) BASO x10^3 (test code 0.04 10*3/uL 0.01-0.09 = 704-7) Lab Interpretation Abnormal (test code = 24961-7) [facility] TexasGLYCOSYLATED HEMOGLOBIN (A1C)2020-03-01 06:49:00 Test Item Value Reference [...] Indicated Lab Interpretation Abnormal (test code = 35647-1) [facility] TexasURIC [id number] 06:25:00 Test Item Value Reference Range Interpretation Comments URIC ACID (test code = 9552326393) 2.3 mg/dL 3.6-8 L Lab Interpretation (test code = Abnormal 80051-9) [facility] TexasSEDIMENTATION [id number] 05:25:00 Test Item Value Reference Range Interpretation Comments ESR (test code = See_Comment H [Automated message] 1070912618) The system [employer] generated this result transmitted ref erence range: 0 - 10 m m/HR. The reference r corey was not used to interpret this result as normal/abnor mal. Lab Interpretation (test Abnormal code = 68992-1) [facility]N-[facility]MINAL [id number] 04:07:00 Test Item Value Reference Range Interpretation Comments NT-proBNP (test code 4080 pg/mL See_Comment H [Autom ated = 2426140482) message] The system which generated this result transmitted reference range : <=450. The reference range was not used to interpret this result as normal/abnormal . ALYSSA (test code = ALYSSA) Biotin has been reported to cause a negative bias, interpret results relative to patient's use of biotin. Lab Interpretation Abnormal (test code = 02716-5) [facility]PO[facility])2020-03-01 03:42:00 Test Item Value Reference Range Interpretation Comments POCT GLU (test code = 4819008871) 190 mg/dL 70-110 H Lab Interpretation (test code = Abnormal 10022-9) [facility] TexasTROPONIN [id number] 03:30:00 Test Item Value Reference Range Interpretation Comments TROPONIN I (test 0.098 ng/mL See_Comment H [Automated code = 1721708773) message] The system which generated this result [...] ? Lab Interpretation Abnormal (test code = 09410-8) [facility] TexasHEPATIC FUNCTION PANEL (38964) (ALB,T.PRO,BILI T,BU/BC,ALT,AST,ALK PHOS)2020-03-01 03:24:00 Test Item Value Reference Range Interpretation Comments TOTAL BILI (test code = 9674361133) 2.2 mg/dL 0.1-1.1 H BILI UNCON (test code = 5938876115) 2.0 mg/dL 0.1-1.1 H BILI CONJ (test code = 4318901379) 0.0 mg/dL 0-0.3 T PROTEIN (test code = 5773600045) 6.7 g/dL 6.3-8.2 ALBUMIN (test code = 8298781742) 4.0 g/dL 3.5-5 ALK PHOS (test code = 1351613519) 48 U/L 34-122 ALTv (test code = 1742-6) 18 U/L 5-50 AST(SGOT) (test code = 1634965797) 57 U/L 13-40 H Lab Interpretation (test code = Abnormal 02664-0) [facility] TexasPhosphorus [id number] 03:17:00 Test Item Value Reference Range Interpretation Comments PHOSPHORUS (test code = 3.1 mg/dL 2.5-5 Slig ht hemolysis 1748014611) Lab Interpretation (test Normal code = 85032-8) [facility] TexasPROTHROMBIN TIME / [id number] 03:08:00 Test Item Value Reference Range Interpretation [...] tions. Lab Interpretation (test Normal code = 48398-3) [facility] TexasCREATINE [id number] 03:01:00 Test Item Value Reference Range Interpretation Comments CK (test code = 6151644130) 68 U/L 33-194 Lab Interpretation (test code = Normal 46069-2) [facility] TexasURIC [id number] 02:41:00 Test Item Value Reference Range Interpretation Comments URIC ACID (test code = 1443605975) 2.3 mg/dL 3.6-8 L Lab Interpretation (test code = Abnormal 45510-0) [facility] TexasTHYROID STIMULATING [id number] 02:26:00 Test Item Value Reference Range Interpretation Comments TSH (test code = See_Comment [Automated message] 0254564677) The system [facility] h generated this result transmitted ref erence range: 0.45 - 4 .70 mIU/L. The refe rence range was not u sed to interpret this result as normal/abnor mal. Lab Interpretation (test Normal code = 61286-4) [facility] TexasN-TERMINAL [id number] 02:04:00 Test Item Value Reference Range Interpretation Comments NT-proBNP (test code 4390 pg/mL See_Comment H [Autom ated = 2248683227) message] The system which generated this result transmitted reference range : <=450. The reference range was not used to interpret this result as normal/abnormal . ALYSSA (test code = ALYSSA) Biotin has been reported to cause a negative bias, interpret results relative to patient's use of biotin. Lab Interpretation Abnormal (test code = 98856-3) [facility] TexasMAGNESIUM2020-04-16 02:01:00 Test Item Value Reference Range Interpretation Comments MAGNESIUM (test code = 2637610694) 1.5 mg/dL 1.7-2.4 L Lab Interpretation (test code = Abnormal 14477-9) [facility] TexasLIPASE2020-04-16 00:22:00 Test Item Value Reference Range Interpretation Comments LIPASE (test code = 9091549626) 68 U/L 0-220 Lab Interpretation (test code = Normal 93886-1) [facility] TexasCORONAVIRUS COVID-19 [id number] 23:42:00 Test Item Value Reference Range Interpretation Comments SARS-CoV-2 (test code = Not Detected Not Detected 85727-2) ALYSSA (test code = ALYSSA) ID NOW COVID-19 Assay is an isothermal nucleic acid amplification test intended for the qualitative detection of nucleic acid from SARS-CoV-2 viral RNA in nasopharyngeal (SCREW MACHINE [employer]TER) specimens. It is used under Emergency [...] indicated. Lab Interpretation Normal (test code = 76795-8) [facility] TexasXR CHEST 1 VW [id number] 23:26:02 No acute intrathoracic abnormality, specifically no radiographic findingsto suggest COVID-19 pneumonia. Disclaimer: Generally, the findings on chest imaging in COVID-19 are notspecific, and overlap with other infections, including influenza, H1N1,SARS and MERS. According to the Centers for Disease Control (CDC) and recent statement ofthe [employer], viral testing remains the [...] Disease Control (CDC) and recent statement ofthe [employer], viral testing remains the only specificmethod of diagnosis. Confirmation with the viral test is required, even ifradiologic findings are suggestive of COVID-[address]. Preliminary Report Dictated by Resident: Radu Boo MD., have reviewed this study and agree with theabovereport.[facility] TexasDomingo [id number] 22:59:00 Test Item Value Reference Range Interpretation Comments TROPONIN I (test 0.071 ng/mL See_Comment H [Automated code = 1865142801) message] The system which generated this result [...] ? Lab Interpretation Abnormal (test code = 20846-0) [facility] (NA, K, CL, CO2, GLUCOSE, BUN, CREATININE, CA)2020-02-29 22:48:00 Test Item Value Reference Range Interpretation Comments NA (test code = 141 mmol/L 135-145 2719270976) K (test code = 3.2 mmol/L 3.5-5 L 5552218752) CL (test code = 104 mmol/L 98-108 0260292823) CO2 TOTAL (test code = 25 mmol/L 23-31 7821080103) AGAP (test code = 2-16 2216425900) BUN (test code = 12 mg/dL 7-23 4532582786) GLUCOSE (test code = 250 mg/dL 70-110 H 9140182776) CREATININE (test code = 1.02 mg/dL 0.6-1.25 2386936856) CALCIUM (test code = 8.9 mg/dL 8.6-10.6 8119599276) eGFR Calculation mL/min/1.73m2 (Non-) (test code = 1195690408) eGFR Calculation mL/min/1.73m2 () (test code = 7667239900) ALYSSA (test code = ALYSSA) Association of [...] tests). Lab Interpretation Abnormal (test code = 03128-0) [facility] WITH [id number] 22:41:00 Test Item Value Reference Range Interpretation Comments WBC (test code = See_Comment [Automated 7390-2) message] The sy stem which generated this [...] RDW-SD (test code = 46.6 fL 38.5-51.6 51537-1) RDW-CV (test code = 14.6 % 12.1-15.4 788-0) PLT (test code = See_Comment [Automated 777-3) message] The sy stem which generated this result transmitted reference range : 150 - 328 10*3/ ?L. The reference r corey was not used to interpret this result as normal/abnormal . MPV (test code = 9.7 fL 9.8-13 L 07114-4) NRBC/100 WBC (test See_Comment [Automat ed code = 6750969875) message] The system which generated this result transmitted reference range : 0.0 - 10.0 /100 WBCs. The refer ence range was not u sed to interpret th is result as normal/abnormal . NRBC x10^3 (test code <0.01 See_Comment [Auto mated = 6714184151) message] The s [employer] which generated this result transmitted reference range : 10*3/?L. The reference range was not used to interpret this result as normal/abnormal . GRAN MAT (NEUT) % 68.6 % (test code = 770-8) IMM GRAN % (test code 0.30 % = 7383332666) LYMPH % (test code = 18.6 % 736-9) MONO % (test code = 10.1 % 5905-5) EOS % (test code = 1.8 % 713-8) BASO % (test code = 0.6 % 706-2) GRAN MAT x10^3(ANC) 4.29 10*3/uL 1.99-6.95 (test code = 8082515495) IMM GRAN x10^3 (test <0.03 0-0.06 code = 3484413675) LYMPH x10^3 (test code 1.16 10*3/uL 1.09-3.23 = 731-0) MONO x10^3 (test code 0.63 10*3/uL 0.36-1.02 = 742-7) EOS x10^3 (test code = 0.11 10*3/uL 0.06-0.53 711-2) BASO x10^3 (test code 0.04 10*3/uL 0.01-0.09 = 704-7) Lab Interpretation Abnormal (test code = 30958-9) [facility] TexasLactic Acid Whole [id number] 22:38:00 Test Item Value Reference Range Interpretation Comments LACTIC ACID (test code = 1.88 mmol/L 0.3-2.6 7530507347) [facility] TexasPOWI GLUCOSE (AUTOMATED)2020-01-17 18:18:00 Test Item Value Reference Range Interpretation Comments POCT GLU (test code = 5188060459) 290 mg/dL 70-110 H Lab Interpretation (test code = Abnormal 44396-2) [facility] TexasTROPONIN [id number] 18:01:00 Test Item Value Reference Range Interpretation Comments TROPONIN I (test 0.065 ng/mL See_Comment H [Automated code = 3074486257) message] The system which generated this result [...] ? Lab Interpretation Abnormal (test code = 28368-5) [facility] TexasaPTT2020-03-03 17:10:00 Test Item Value Reference Range Interpretation Comments APTT Patient (test See_Comment H [Automat ed code = 3173-2) message] The system which generated this result transmitted reference range : 23 - 38 Seconds . The reference range was not used to interpr et this result as normal/abnormal . ALYSSA (test code = ALYSSA) The [facility] patient population mean normal value for aPTT is 30 seconds. Lab Interpretation Abnormal (test code = 01148-0) [facility]POCT GLUCOSE (AUTOMATED)2020-01-17 11:59:00 Test Item Value Reference Range Interpretation Comments POCT GLU (test code = 1050323311) 185 mg/dL 70-110 H Lab Interpretation (test code = Abnormal 06550-7) [facility] TexasTROPONIN [id number] 11:23:00 Test Item Value Reference Range Interpretation Comments TROPONIN I (test 0.073 ng/mL See_Comment H [Automated code = 0711250240) message] The system which generated this result [...] ? Lab Interpretation Abnormal (test code = 87475-6) [facility] TexasBasic Metabolic Panel (NA, K, CL, CO2, GLUCOSE, BUN, CREATININE, CA)2020-01-17 11:16:00 Test Item Value Reference Range Interpretation Comments NA (test code = 136 mmol/L 135-145 0384919992) K (test code = 3.3 mmol/L 3.5-5 L 9111308998) CL (test code = 101 mmol/L 98-108 3432283386) CO2 TOTAL (test code = 26 mmol/L 23-31 0318269839) AGAP (test code = 2-16 3281752080) BUN (test code = 19 mg/dL 7-23 2486286613) GLUCOSE (test code = 227 mg/dL 70-110 H 7841492391) CREATININE (test code = 1.33 mg/dL 0.6-1.25 H 9430661455) CALCIUM (test code = 9.1 mg/dL 8.6-10.6 4534434610) eGFR Calculation mL/min/1.73m2 (Non-) (test code = 9532967075) eGFR Calculation mL/min/1.73m2 () (test code = 0288911824) ALYSSA (test code = ALYSSA) Association of [...] tests). Lab Interpretation Abnormal (test code = 58205-3) [facility] TexasaPTT2020-03-03 11:00:00 Test Item Value Reference Range Interpretation Comments APTT Patient (test See_Comment H [Automat ed code = 3173-2) message] The system which generated this result transmitted reference range : 23 - 38 Seconds . The reference range was not used to interpr et this result as normal/abnormal . ALYSSA (test code = ALYSSA) The [facility] patient population mean normal value for aPTT is 30 seconds. Lab Interpretation Abnormal (test code = 10803-0) [facility] TexasCBC WITH [id number] 10:43:00 Test Item Value Reference Range Interpretation Comments WBC (test code = See_Comment [Automated message] 6690-2) The system [employer] generated this result transmitted ref erence range: 4.20 - 1 0.70 10*3/?L. The re ference range was not u sed to interpret this result as normal/abnor mal. RBC (test code = See_Comment [Automated message] 789-8) The system [employer] generated this result transmitted ref erence range: [...] RDW-SD (test code 41.5 fL 38.5-51.6 = 18802-9) RDW-CV (test code 12.8 % 12.1-15.4 = 788-0) PLT (test code = See_Comment [Automated message] 277-3) The system whic h generated this result transmitted ref erence range: 150 - 32 8 10*3/?L. The re ference range was not u sed to interpret this result as normal/abnor mal. MPV (test code = 10.7 fL 9.8-13 66962-9) NRBC/100 WBC (test See_Comment [Automat ed message] code = 7870688189) The syste m which generated this result transmitted ref erence range: 0.0 - 10 .0 /100 WBCs. The refer ence range was not u sed to interpret this result as normal/abnor mal. NRBC x10^3 (test <0.01 See_Comment [Automated message] code = 6806141119) The syste m which generated this result transmitted ref erence range: 10*3/?L. The reference range was not used to interpr et this result as normal/abnormal . GRAN MAT (NEUT) % 56.1 % (test code = 770-8) IMM GRAN % (test 0.30 % code = 1032157473) LYMPH % (test code 29.5 % = 736-9) MONO % (test code 9.9 % = 5905-5) EOS % (test code = 3.3 % 713-8) BASO % (test code 0.9 % = 706-2) GRAN MAT 3.73 10*3/uL 1.99-6.95 x10^3(ANC) (test code = 3668736720) IMM GRAN x10^3 <0.03 0-0.06 (test code = 6037519193) LYMPH x10^3 (test 1.96 10*3/uL 1.09-3.23 code = 731-0) MONO x10^3 (test 0.66 10*3/uL 0.36-1.02 code = 742-7) EOS x10^3 (test 0.22 10*3/uL 0.06-0.53 code = 711-2) BASO x10^3 (test 0.06 10*3/uL 0.01-0.09 code = 704-7) [facility] GLUCOSE (AUTOMATED)2020-01-17 01:49:00 Test Item Value Reference Range Interpretation Comments POCT GLU (test code = 7918104048) 305 mg/dL 70-110 H Lab Interpretation (test code = Abnormal 23136-5) [facility]PO[facility]2020-01-17 00:01:00 Test Item Value Reference Range Interpretation Comments POCT GLU (test code = 7455102988) 271 mg/dL 70-110 H Lab Interpretation (test code = Abnormal 04910-1) [facility]aPTT2020-03-02 22:23:00 Test Item Value Reference Range Interpretation Comments APTT Patient (test See_Comment H [Automat ed code = 3173-2) message] The system which generated this result transmitted reference range : 23 - 38 Seconds . The reference range was not used to interpr et this result as normal/abnormal . ALYSSA (test code = ALYSSA) The [facility] patient population mean normal value for aPTT is 30 seconds. Lab Interpretation Abnormal (test code = 82447-6) [facility] TexasTROPONIN [id number] 21:22:00 Test Item Value Reference Range Interpretation Comments TROPONIN I (test 0.061 ng/mL See_Comment H [Automated code = 1548067099) message] The system which generated this result [...] ? Lab Interpretation Abnormal (test code = 66790-6) [facility]PO[facility]SE [facility])2020-01-16 17:37:00 Test Item Value Reference Range Interpretation Comments POCT GLU (test code = 9402572528) 271 mg/dL 70-110 H Lab Interpretation (test code = Abnormal 76534-0) [facility]aPTT2020-03-02 12:47:00 Test Item Value Reference Range Interpretation Comments APTT Patient (test See_Comment HH [Automat ed code = 3173-2) message] The system which generated this result transmitted reference range : 23 - 38 Seconds . The reference range was not used to interpr et this result as normal/abnormal . ALYSSA (test code = ALYSSA) The [facility] patient population mean normal value for aPTT is 30 seconds. Lab Interpretation Abnormal (test code = 37735-4) [facility] TexasTROPONIN [id number] 12:35:00 Test Item Value Reference Range Interpretation Comments TROPONIN I (test 0.074 ng/mL See_Comment H [Automated code = 9690803427) message] The system which generated this result [...] ? Lab Interpretation Abnormal (test code = 27699-1) [facility] TexasLIPID PANEL (59534)(TOTAL CHOLESTEROL, TRIGLYCERIDES, HDL)2020-01-16 12:23:00 Test Item Value Reference Range Interpretation Comments CHOL (test code = 95 mg/dL 120-200 L 1950997022) HDL (test code = 44 mg/dL >40 2106488118) HDLC RATIO (test code = See_Comment [Au tomated message] 5270324248) The system [employer] generated this result transmitted ref erence range: <=5.0. T he reference range was not used to int erpret this result as normal/abnormal . TRIG (test code = 89 mg/dL 30-170 [id number]) LDL CHOL (test code = 33 mg/dL See_Comment [Auto mated message] 89396-9) The system [employer] generated this result transmitted ref erence range: <=160. T he reference range was not used to int erpret this result as normal/abnormal . VLDL (test code = 18 mg/dL 5-60 2530449832) Lab Interpretation (test Abnormal code = 40802-2) [facility]2020-01-16 09:03:00 Test Item Value Reference [...] Indicated Lab Interpretation Abnormal (test code = 53800-2) [facility]Critical [id number] 05:48:18Charanjit Heck MD ? ? 01/15/2020 11:48 [...] old charts and examination of patientUnHouston [facility] HospitalProthrombin Time (PT) / [id number] 05:28:00 Test Item Value Reference Range Interpretation [...] tions. Lab Interpretation (test Normal code = 10510-4) [facility]aPTT2020-03-02 05:27:00 Test Item Value Reference Range Interpretation Comments APTT Patient (test See_Comment [Automat ed code = 3173-2) message] The system which generated this result transmitted reference range : 23 - 38 Seconds . The reference range was not used to interpr et this result as normal/abnormal . ALYSSA (test code = ALYSSA) The [facility] patient population mean normal value for aPTT is 30 seconds. Lab Interpretation Normal (test code = 99447-1) [facility] TexasTroponin [id number] 05:11:00 Test Item Value Reference Range Interpretation Comments TROPONIN I (test 0.075 ng/mL See_Comment H [Automated code = 2556145556) message] The system which generated this result [...] ? Lab Interpretation Abnormal (test code = 34050-1) [facility] TexasN-TERMINAL [id number] 05:08:00 Test Item Value Reference Range Interpretation Comments NT-proBNP (test code 896 pg/mL See_Comment H [Autom ated = 0268831851) message] The system which generated this result transmitted reference range : <=450. The reference range was not used to interpret this result as normal/abnormal . ALYSSA (test code = ALYSSA) Biotin has been reported to cause a negative bias, interpret results relative to patient's use of biotin. Lab Interpretation Abnormal (test code = 49425-5) [facility] (NA, K, CL, CO2, GLUCOSE, BUN, CREATININE, CA)2020-01-16 04:59:00 Test Item Value Reference Range Interpretation Comments NA (test code = 136 mmol/L 135-145 8803396826) K (test code = 4.0 mmol/L 3.5-5 0541450159) CL (test code = 101 mmol/L 98-108 3799809513) CO2 TOTAL (test code = 27 mmol/L 23-31 2285440793) AGAP (test code = 2-16 3057100525) BUN (test code = 17 mg/dL 7-23 4460761855) GLUCOSE (test code = 445 mg/dL 70-110 H 6090528355) CREATININE (test code = 1.29 mg/dL 0.6-1.25 H 3883879353) CALCIUM (test code = 8.8 mg/dL 8.6-10.6 9579731601) eGFR Calculation mL/min/1.73m2 (Non-) (test code = 9774290961) eGFR Calculation mL/min/1.73m2 () (test code = 4026234242) ALYSSA (test code = ALYSSA) Association of [...] tests). Lab Interpretation Abnormal (test code = 77653-0) [facility] (ALB, T.PRO, BILI T, BU/BC, ALT, AST, ALK PHOS)2020-01-16 04:59:00 Test Item Value Reference Range Interpretation Comments TOTAL BILI (test code = 7818735351) 1.3 mg/dL 0.1-1.1 H BILI UNCON (test code = 9253715273) 1.1 mg/dL 0.1-1.1 BILI CONJ (test code = 2352389169) 0.0 mg/dL 0-0.3 T PROTEIN (test code = 5402067510) 6.3 g/dL 6.3-8.2 ALBUMIN (test code = 0334515641) 3.9 g/dL 3.5-5 ALK PHOS (test code = 7141623322) 67 U/L 34-122 ALTv (test code = 1742-6) 15 U/L 5-50 AST(SGOT) (test code = 2622808154) 23 U/L 13-40 Lab Interpretation (test code = Abnormal 38384-3) [facility] 1 [id number] 04:54:13Impression: Moderate cardiomegaly without acute pulmonary process. RL: 460 AFC: [id number] Indication: Chest pain Comparison: None available Findings: [...] place.IMPRESSIONImpression:Moderate cardiomegaly without acute pulmonary process.RL: 460AFC: [id number] signed by Esperanza Rosado MD, PhD at 01/15/2020 10:54 [facility]Un[facility] WITH [id number] 04:51:00 Test Item Value Reference Range Interpretation [...] RDW-SD (test code = 40.7 fL 38.5-51.6 05816-0) RDW-CV (test code = 12.8 % 12.1-15.4 788-0) PLT (test code = See_Comment L [Automated 777-3) message] The sy stem which generated this result transmitted reference range : 150 - 328 10*3/ ?L. The reference r corey was not used to interpret this result as normal/abnormal . MPV (test code = 10.6 fL 9.8-13 14416-9) IPF % (test code = 2.8 % 1.2-10.7 Platelet count 0664459029) measured by fluorescence method. NRBC/100 WBC (test See_Comment [Automat ed code = 4823413049) message] The system which generated this result transmitted reference range : 0.0 - 10.0 /100 WBCs. The refer ence range was not u sed to interpret th is result as normal/abnormal . NRBC x10^3 (test code <0.01 See_Comment [Auto mated = 1956405842) message] The s ystem which generated this result transmitted reference range : 10*3/?L. The reference range was not used to interpret this result as normal/abnormal . GRAN MAT (NEUT) % 56.0 % (test code = 770-8) IMM GRAN % (test code 0.20 % = 9376364367) LYMPH % (test code = 30.5 % 736-9) MONO % (test code = 9.6 % 5905-5) EOS % (test code = 2.8 % 713-8) BASO % (test code = 0.9 % 706-2) GRAN MAT x10^3(ANC) 2.98 10*3/uL 1.99-6.95 (test code = 3022667042) IMM GRAN x10^3 (test <0.03 0-0.06 code = 5362876765) LYMPH x10^3 (test code 1.62 10*3/uL 1.09-3.23 = 731-0) MONO x10^3 (test code 0.51 10*3/uL 0.36-1.02 = 742-7) EOS x10^3 (test code = 0.15 10*3/uL 0.06-0.53 711-2) BASO x10^3 (test code 0.05 10*3/uL 0.01-0.09 = 704-7) Lab Interpretation Abnormal (test code = 09118-9) [facility]"
[2022-04-30] MEDS ORDERED: dexAMETHasone 10 MG/ML VIAL ONE (09:07)
[2022-04-30] MEDS ORDERED: MORPHINE 4 MG/ML SYR ONE (09:07)
[2022-04-30] MEDS ORDERED: ONDANSETRON 4 MG/2 ML VIAL ONE (09:07)
--- NOTE | 2022-04-30 10:08 | ER ---
Nurse's Notes [facility] Name: Demetrius Sarmiento Age: 81 yrs Sex: Male : 1940 Arrival Date: 04/30/2022 Time: 08:15 Bed 8 Private MD: Diagnosis: Lumbago with sciatica, left side;Other chronic pain Presentation: 04/30 08:10 Chief complaint: Patient states: Patient reports pain in the left hip that radiates jg9 across to the mid lower left back-this is a chronic problem and patient is reportedly under pain management care. Coronavirus screen: Vaccine status: Patient reports receiving the 2nd dose of the covid vaccine. patient has received 2 doses and a booster. Ebola Screen: Patient negative for fever greater than or equal to 101.5 degrees Fahrenheit, and additional compatible Ebola Virus Disease symptoms Patient denies exposure to infectious person. Patient denies travel to an Ebola-affected area in the 21 days before illness onset. Initial Sepsis Screen: Does the patient meet any 2 criteria? No. Patient's initial sepsis screen is negative. Does the patient have a suspected source of infection? No. Patient's initial sepsis screen is negative. Risk Assessment: Do you want to hurt yourself or someone else? Patient reports no desire to harm self or others. Onset of symptoms is unknown. 08:10 Method Of Arrival: [facility] 9 08:10 Acuity: LANCE 4 jg9 Triage Assessment: 08:10 General: Appears uncomfortable, Behavior is moaning/groaning. Pain: Complains of pain jg9 in left leg-left hip Pain radiates to back-left lower Pain currently is 9 out of 10 on a pain scale. Current management is with pain management. EENT: No deficits noted. EENT: Reports. Neuro: No deficits noted. Cardiovascular: No deficits noted. Respiratory: No deficits noted. GI: No deficits noted. : No deficits noted. Derm: No deficits noted. Musculoskeletal: Reports pain in left leg. Historical: - Allergies: 08:23 No Known Allergies; jg9 - PMHx: 08:23 diabetes mellitus; Hypercholesterolemia; Hypertensive disorder; ME; sciatica; jg9 - Immunization history:: Adult Immunizations up to date. - Social history:: Smoking status: Patient/guardian denies using tobacco, the patient reports quitting approximately 20 years ago. Screenin:25 Abuse screen: Denies threats or abuse. Denies injuries from another. Nutritional jg9 screening: No deficits noted. Tuberculosis screening: No symptoms or risk factors identified. Fall Risk None identified. Assessment: 09:07 Reassessment: No changes from previously documented assessment. Patient and/or family jg9 updated on plan of care and expected duration. Pain level reassessed. Patient is alert, oriented x 3, equal unlabored respirations, skin warm/dry/pink. 09:32 Reassessment: Patient and/or family updated on plan of care and expected duration. Pain jg9 level reassessed. Patient is alert, oriented x 3, equal unlabored respirations, skin warm/dry/pink. Patient states symptoms have improved. Vital Signs: 08:10 BP 116 / 74; Pulse 99; Resp 20 S; Temp 97.8(infrared); Pulse Ox 97% on R/A; Weight jg9 74.84 kg (M); Height 5 ft. 7 in. (170.18 cm) (R); Pain 9/10; 08:30 BP 96 / 69; Pulse 88; Resp 20 S; Pulse Ox 99% ; Pain 9/10; jg9 08:52 BP 115 / 58; Pulse 88; Resp 20 S; Pulse Ox 100% on R/A; Pain 9/10; jg9 09:00 BP 113 / 83; Pulse 91; Resp 18 S; Pulse Ox 100% on R/A; Pain 7/10; jg9 09:30 BP 122 / 77; Pulse 89; Resp 18 S; Pulse Ox 100% on R/A; Pain 7/10; jg9 10:30 BP 119 / 82; Pulse 87; Resp 17 S; Pulse Ox 97% on R/A; Pain 5/10; jg9 08:10 Body Mass Index 25.84 (74.84 kg, 170.18 cm) jg9 ED Course: 08:15 Patient arrived in ED. jg9 08:20 Halle Bower, HERBIE is Primary Nurse. jg9 08:20 Shukri Martinez NP is PHCP. pm1 08:20 Esteban Martinez MD is Attending Physician. pm1 08:23 Triage completed. jg9 08:26 Patient has correct armband on for positive identification. Bed in low position. Call jg9 light in reach. 08:26 Arm band placed on right wrist. jg9 09:00 Inserted saline lock: 18 gauge in right antecubital area, using aseptic technique. jg9 09:32 No apparent distress. Resting quietly. jg9 10:47 No provider procedures requiring assistance completed. jg9 10:47 IV discontinued. jg9 Administered Medications: 08:58 CANCELLED (Physician Discretion): fentaNYL (PF) 50 mcg IVP once pm1 09:03 Drug: Zofran (Ondansetron) 4 mg Route: IVP; Site: right forearm; jg9 09:33 Follow up: Response: No adverse reaction jg9 09:03 Drug: morphine 4 mg Route: IVP; Infused Over: 4 mins; Site: right forearm; jg9 09:33 Follow up: Response: No adverse reaction; Pain is decreased jg9 09:05 Drug: Decadron - Dexamethasone 10 mg Route: IVP; Site: right antecubital; jg9 09:33 Follow up: Response: No adverse reaction jg9 10:30 Drug: Lidoderm Patch 5 % (700 mg/patch) 1 patches {Note: left lower back.} Route: jg9 Topical; Site: affected area; Medication: 08:26 VIS not applicable for this client. jg9 Outcome: 10:07 Discharge ordered by . pm1 10:47 Discharged to home via wheelchair. jg9 10:47 Condition: good 10:47 Discharge instructions given to patient, Instructed on discharge instructions, follow up and referral plans. Demonstrated understanding of instructions, follow-up care. 10:47 Patient left the ED. jg9 Signatures: Shukri Martinez NP KIER OPERATOR pm1 Halle Bower RN RN jg9 Corrections: (The following items were deleted from the chart) 08:57 08:30 BP 96 / 69; Pulse 88bpm; Resp 20bpm; Spontaneous; Pulse Ox 99%; jg9 jg9
--- NOTE | 2022-04-30 10:08 | EDPHYS ---
Physician Documentation [facility] Name: Demetrius Sarmiento Age: 81 yrs Sex: Male : 1940 Arrival Date: 04/30/2022 Time: 08:15 Bed 8 Private MD: ED Physician Esteban Martinez HPI: 04/30 08:58 This 81 yrs old Male presents to ER via EMS with complaints of left lower back/hip pain pm1 radiation to left leg. 08:58 The patient or guardian reports pain. sustained from a chronic condition. The pm1 complaints affect the Left hip and left leg. Modifying factors: the symptoms are aggravated by Movement and left hip flexion. Associated signs and symptoms: Pertinent negatives: dysuria, fever. Severity of symptoms: in the emergency department the symptoms have improved, Patient reports improvement with positioning on arrival to the ER. The patient has not experienced similar symptoms in the past. The patient has not recently seen a physician. Historical: - Allergies: 08:23 No Known Allergies; jg9 - PMHx: 08:23 diabetes mellitus; Hypercholesterolemia; Hypertensive disorder; [place]; sciatica; jg9 - Immunization history:: Adult Immunizations up to date. - Social history:: Smoking status: Patient/guardian denies using tobacco, the patient reports quitting approximately 20 years ago. ROS: 08:58 Constitutional: Negative for fever, chills, and weight loss, Cardiovascular: Negative pm1 for chest pain, palpitations, and edema, Respiratory: Negative for shortness of breath, cough, wheezing, and pleuritic chest pain. 08:58 Skin: Negative for injury, rash, and discoloration, Neuro: Negative for headache, weakness, numbness, tingling, and seizure. 08:58 MS/extremity: Positive for pain, of the left hip and left buttocks, Negative for injury or acute deformity. 08:58 All other systems are negative. Exam: 08:58 Constitutional: This is a well developed, well nourished patient who is awake, alert, pm1 and in no acute distress. Head/Face: Normocephalic, atraumatic. 08:58 Skin: Warm, dry with normal turgor. Normal color with no rashes, no lesions, and no evidence of cellulitis. MS/ Extremity: Pulses equal, no cyanosis. Neurovascular intact. Full, normal range of motion. 08:58 Cardiovascular: Exam negative for acute changes, Rate: normal, Rhythm: regular, Pulses: no pulse deficits are appreciated, Heart sounds: normal, normal S1and S2. 08:58 Respiratory: Exam negative for acute changes, respiratory distress, shortness of breath. 08:58 Back: normal spinal alignment noted, vertebral tenderness, is not appreciated, muscle spasm, is appreciated in the left low back and left buttocks. 08:58 Neuro: Exam negative for acute changes, Orientation: is normal, Motor: is normal, moves all fours. Vital Signs: 08:10 BP 116 / 74; Pulse 99; Resp 20 S; Temp 97.8(infrared); Pulse Ox 97% on R/A; Weight 9 74.84 kg (M); Height 5 ft. 7 in. (170.18 cm) (R); Pain 9/10; 08:30 BP 96 / 69; Pulse 88; Resp 20 S; Pulse Ox 99% ; Pain 9/10; 9 08:52 BP 115 / 58; Pulse 88; Resp 20 S; Pulse Ox 100% on R/A; Pain 9/10; 9 09:00 BP 113 / 83; Pulse 91; Resp 18 S; Pulse Ox 100% on R/A; Pain 7/10; 9 09:30 BP 122 / 77; Pulse 89; Resp 18 S; Pulse Ox 100% on R/A; Pain 7/10; jg9 10:30 BP 119 / 82; Pulse 87; Resp 17 S; Pulse Ox 97% on R/A; Pain 5/10; jg9 08:10 Body Mass Index 25.84 (74.84 kg, 170.18 cm) [facility] MDM: 08:21 Patient medically screened. pm1 10:00 Data reviewed: vital signs. Data interpreted: Pulse oximetry: on room air is 100 %. pm1 Interpretation: normal. 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 04/30 08:58 Order name: IV Saline Lock; Complete Time: 09:07 pm1 Administered Medications: 08:58 CANCELLED (Physician Discretion): fentaNYL (PF) 50 mcg IVP once pm1 09:03 Drug: Zofran (Ondansetron) 4 mg Route: IVP; Site: right forearm; jg9 09:33 Follow up: Response: No adverse reaction jg9 09:03 Drug: morphine 4 mg Route: IVP; Infused Over: 4 mins; Site: right forearm; jg9 09:33 Follow up: Response: No adverse reaction; Pain is decreased jg9 09:05 Drug: Decadron - Dexamethasone 10 mg Route: IVP; Site: right antecubital; jg9 09:33 Follow up: Response: No adverse reaction jg9 10:30 Drug: Lidoderm Patch 5 % (700 mg/patch) 1 patches {Note: left lower back.} Route: jg9 Topical; Site: affected area; Disposition: 14:30 Co-signature as Attending Physician, Esteban Martinez MD I agree with the assessment and kdr plan of care. Disposition Summary: 04/30/22 10:07 Discharge Ordered Location: Home pm1 Problem: new pm1 Symptoms: have improved pm1 Condition: Stable pm1 Diagnosis - Lumbago with sciatica, left side pm1 - Other chronic pain pm1 Followup: pm1 - With: Emergency Department - When: As needed - Reason: Worsening of condition Followup: pm1 - With: Private Physician - When: 2 - 3 days - Reason: Recheck today's complaints, Continuance of care, Re-evaluation by your physician Discharge Instructions: - Discharge Summary Sheet pm1 - Chronic Back Pain pm1 - Sciatica pm1 Forms: - Medication Reconciliation Form pm1 - Thank You Letter pm1 - Antibiotic Education pm1 - Prescription Opioid Use pm1 Signatures: Esteban Martinez MD MD kdr Marinas, Patrick, NP RESIDENTIAL ROOFER pm1 Halle Bower RN RN jg9 Corrections: (The following items were deleted from the chart) 08:58 08:58 fentaNYL (PF) 50 mcg IVP once ordered. pm1 pm1
[2022-04-30] MEDS ORDERED: LIDOCAINE 4% PATCH ONE (10:25)
[2022-04-30 10:55] VITALS: TEMP 97.8
[2022-04-30 11:09] VITALS: BP 119/82; O2SAT 97
== END 2022-04-30 10:47 | disposition home or self-care (01) ==
LOC: ER 08:06
DX: M54.42 Lumbago with sciatica, left side (principal); G89.29 Other chronic pain; E11.9 Type 2 diabetes mellitus without complications; E78.00 Pure hypercholesterolemia, unspecified; I10 Essential (primary) hypertension; I25.2 Old myocardial infarction
CPT/HCPCS: J2001; J1100; J2405; 99284

== ENCOUNTER 2022-05-02 10:49 | Emergency (ER) | payer OTHER ==
--- OUTSIDE RECORDS SUMMARY | 2022-05-02 11:02 | XMS REPORT | Continuity of Care Document ---
:1940 Author Organization [facility] t Address 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 2018- U nivers lobe lobe 1-06 ity of pneumonia pneumonia 00:00: [facility] s 00 Medical Branch [...] Active 2019- Univers 0-23 ity of 00:00: [place] [...] 00:00: [place] involving involving 00 Medi birdie [place] 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 00:00: [place] disease disease 00 Medical Branch Coronary Coronary Disease Active Unive rs artery artery 1-27 ity of disease disease 00:00: [place] involving involving 00 Medi birdie [place] 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 [...] Allergie 1-23 Clear s 00:00: [place] 00 [facility] NO KNOWN Drug Active Univers ALLERGIE Class ity of S [facility] Social History Social Habit Start Date Stop Date Quantity Comments Source History of tobacco User of [facility] sit of use smokeless [facility] tobacco [place] Exposure to 2022-04-06 2022-04-16 Not sure University SARS-CoV-2 (event) 00:00:00 22:24:00 [facility] Alcohol intake 2022-03-01 2022-03-01 Current University of 00:00:00 00:00:00 non-drinker of [facility] alcohol [place] (finding) Cigarettes smoked 2018-12-11 2018-12-11 [facility] ity of current (pack per 00:00:00 00:00:00 [facility] ) - Reported Branch Cigarette 2018-12-11 2018-12-11 University of pack-years 00:00:00 00:00:00 [facility] Tobacco use and 2018-12-11 2018-12-11 Former user Universi ty of exposure 00:00:00 00:00:00 [facility] Sex Ass[birth year] At [birth year] Universit y of 00:00:00 00:00:00 [facility] Smoking Status Start Date Stop Date Source Former smoker 2018-12-11 00:00:00 2018-12-11 00:00:00 [facility] Medications Ordered Filled Start Stop Current Ordering Indication Dosage Frequency Signature Comments Components Source Medication Medication Date Date Medication? Clinician (SIG) Name Name FENTanyl PF No 25ug 25 mcg, Un mel (SUBLIMAZE 03-0116 Intramuscu it y of (PF)) 16:45: 16:23 lar, ONCE, [place] injection 00 :00 1 dose, On Medi birdie 25 mcg [facility] 03/01/22 at 1145, Routine cyclobenzap No 10mg 10 mg, Uni vers rine 03-0116 Oral, ity of (FLEXERIL) 14:00: 12:59 ONCE, 1 [place] tablet 10 00 :00 dose, On Medica l mg [facility] 03/01/22 at 0900, Routine HYDROcodone 2021- [...] 03/01/22 at 0900, 1 mL cyclobenzap Yes [id number] 10mg Take 1 Univers rine 10 mg 4-16 tablet by ity of tablet 00:00: mouth 3 [place] 00 (three) Medical times Branch daily as needed for Muscle Spasms. cyclobenzap Yes [id number] 10mg Take 1 Univers rine 10 mg 4-16 tablet by ity of tablet 00:00: mouth 3 [place] 00 (three) Medical times Branch daily as needed for Muscle Spasms. aspirin 81 2020-11- No [id number] 81mg Take 1 Univers mg chewable 2-04 12- tablet by it y of tablet 00:00: 05:59 mouth [place] 00 :00 daily for Medical 30 days. Branch clopidogreL 2020-11 No [id number] 75mg Take 1 Univers 75 mg 2-04 12- tablet by ity of tablet 00:00: 05:59 mouth [place] 00 :00 daily for Medical 30 days. Branch furosemide 2020-11- No [id number] 20mg Take 1 Univers 20 mg 2-04 12- tablet by ity of tablet 00:00: 05:59 mouth [place] 00 :00 daily for Medical 30 days. Branch aspirin 81 2020-11- No [id number] 81mg Take 1 Univers mg chewable 2-04 12- tablet by it y of tablet 00:00: 05:59 mouth [place] 00 :00 daily for Medical 30 days. Branch clopidogreL 2020-11- No [id number] 75mg Take 1 Univers 75 mg 2-19 - tablet by ity of tablet 00:00: 05:59 mouth [place] 00 :00 daily for Medical 30 days. Branch furosemide 2020-11- No [id number] 20mg Take 1 Univers 20 mg 01-04 tablet by ity of tablet 00:00: 05:59 mouth [place] 00 :00 daily for Medical 30 days. Branch aspirin 81 2020-11- No [id number] 81mg Take 1 Univers mg chewable 01-04 tablet by it y of tablet 00:00: 05:59 mouth [place] 00 :00 daily for Medical 30 days. Branch clopidogreL 2020-11- No [id number] 75mg Take 1 Univers 75 mg 01-04 tablet by ity of tablet 00:00: 05:59 mouth [place] 00 :00 daily for Medical 30 days. Branch furosemide 2020-11- No [id number] 20mg Take 1 Univers 20 mg 01-04 [...] 2-18 by mouth ity of 18:25: at [place] [address] bedtime. Medical Branch atorvastati 2020-11 Yes 40mg Take 40 mg Univers n 40 mg 2-18 by mouth ity of tablet 18:25: at [place] 21 bedtime. Medical Branch metoprolol 2020-11 [...] Until Discontinu ed, Routine QUEtiapine 2020-11 Yes [id number] 25mg Take 1 Univers 25 mg 2-18 tablet by ity of tablet 00:00: mouth at [place] 00 bedtime as Medical needed Branch (agitation /insomnia) . QUEtiapine 2020-11 Yes [id number] 25mg Take 1 Univers 25 mg 2-18 tablet by ity of tablet 00:00: mouth at [place] 00 bedtime as Medical needed Branch (agitation /insomnia) . QUEtiapine 2020-11 Yes [id number] 25mg Take 1 Univers 25 mg 2-18 tablet by ity of tablet 00:00: mouth at [place] 00 bedtime as Medical needed Branch (agitation /insomnia) . QUEtiapine 2020-11 Yes [id number] 25mg Take 1 Univers 25 mg 2-18 tablet by ity of tablet 00:00: mouth at [place] 00 bedtime as Medical needed Branch (agitation /insomnia) . QUEtiapine 2020-11 Yes [id number] 25mg Take 1 Univers 25 mg 2-18 tablet by ity of tablet 00:00: mouth at [place] 00 bedtime as Medical needed Branch (agitation /insomnia) . isosorbide 2020-11- No [id number] 60mg Take 1 Univers mononitrate 2-18 01-18 tablet by it y of 60 mg 24 hr 00:00: 05:59 mouth 2 [place] tablet 00 :00 (two) Medical times Branch daily for 30 days. metoprolol 2020-11- No [id number] 37.5mg Take 1.5 Univers succinate 2-18 01-18 tablets by ity of XL 25 mg 24 00:00: 05:59 mouth 2 [place] hr tablet 00 :00 (two) Medical times Branch daily for 30 days. isosorbide 2020-11- No [id number] 60mg Take 1 Univers mononitrate 2-18 01-18 tablet by it y of 60 mg 24 hr 00:00: 05:59 mouth 2 [place] tablet 00 :00 (two) Medical times Branch daily for 30 days. metoprolol 2020-11 No [id number] 37.5mg Take 1.5 Univers succinate 2-18 -18 tablets by ity of XL 25 mg 24 00:00: 05:59 mouth 2 [place] hr tablet 00 :00 (two) Medical times Branch daily for 30 days. isosorbide 2020-11- No [id number] 60mg Take 1 Univers mononitrate 2-18 -18 tablet by it y of 60 mg 24 hr 00:00: 05:59 mouth 2 [place] tablet 00 :00 (two) Medical times Branch daily for 30 days. metoprolol 2020-11 No [id number] 37.5mg Take 1.5 Univers succinate -18 12-03 [...] Until Discontinu ed, Routine sulfur 2020-11- No [id number] 5mL 5 mL, Unive rs hexafluorid 01-01- Intravenou i ty of e microsphr 17:00: 17:00 s, ONCE, 1 [place] (LUMASON) 00 :00 dose, On Medica l injection 5 Madhavi Branch mL 10/31/21 at 1100, Routine
member service specialist approving Restricted medication : MEGGAN CAMARA isosorbide [...] IV Push, ity of mg 07:36: 05:31 [facility], [place] 09 :07 Starting Medical on [place] [...] IV Push, ity of (PF)) 05:32: Q6HPRN, [place] injection 4 10 Starting Medi birdie mg on Thu Branch 10/30/21 at 2332, Until Discontinu ed, Routine, Nausea and Vomiting (N/V) acetaminoph 2020-11 Yes 650mg 650 mg, Un mel en 16 Oral, ity of (TYLENOL) 05:31: Q6HPRN, [place] tablet 650 56 Starting Medic al [...] 04/25/21 at Branch 1400, [place] cyclobenzap Yes [id number] 5mg Take 1 Univers rine 5 mg 6-10 tablet by ity o f tablet 00:00: mouth 3 [place] 00 (three) Medical times Branch daily. cyclobenzap Yes [id number] 5mg Take 1 Univers rine 5 mg 6-10 tablet by ity o f tablet 00:00: mouth 3 [place] 00 (three) Medical times Branch daily. cyclobenzap Yes [id number] 5mg Take 1 Univers rine 5 mg [...] left sided low back pain cyclobenzap Yes [id number] 5mg Take 1 Univers rine 5 mg [...] left sided low back pain cyclobenzap Yes [id number] 5mg Take 1 Univers rine 5 mg 6-10 tablet by ity o f tablet 00:00: mouth 3 [place] 00 (three) Medical times Branch daily. cyclobenzap 2021- No [id number] 5mg Take 1 Univers rine 5 mg [...] Discontinu ed, Routine aspirin 81 2020-0 Yes [id number] 81mg Take 1 U nivers mg chewable 5- tablet by ity of tablet 00:00: mouth [place] 00 daily with Medical breakfast. Branch furosemide 2020-0 Yes [id number] 20mg Take 1 U nivers 20 mg 5-09 tablet by ity of tablet 00:00: mouth [place] 00 daily. Medical Branch aspirin 81 2020-0 Yes [id number] 81mg Take 1 U nivers mg chewable 5-09 tablet by ity of tablet 00:00: mouth [place] 00 daily with Medical breakfast. Branch furosemide 2020-0 Yes [id number] 20mg Take 1 U nivers 20 mg 5-09 tablet by ity of tablet 00:00: mouth [place] 00 daily. Medical Branch aspirin 81 2020-0 Yes [id number] 81mg Take 1 U nivers mg chewable 5-09 tablet by ity of tablet 00:00: mouth [place] 00 daily with Medical breakfast. Branch furosemide 2020-0 Yes [id number] 20mg Take 1 U nivers 20 mg 5-09 tablet by ity of tablet 00:00: mouth [place] 00 daily. Medical Branch aspirin 81 2020-0 Yes [id number] 81mg Take 1 U nivers mg chewable 5-09 tablet by ity of tablet 00:00: mouth [place] 00 daily with Medical breakfast. Branch furosemide 2020-0 Yes [id number] 20mg Take 1 U nivers 20 mg 5-09 tablet by ity of tablet 00:00: mouth [place] 00 daily. Medical Branch aspirin 81 2020-0 Yes [id number] 81mg Take 1 U nivers mg chewable 5-09 tablet by ity of tablet 00:00: mouth [place] 00 daily with Medical breakfast. Branch furosemide 2020-0 Yes [id number] 20mg Take 1 U nivers 20 mg 5-09 tablet by ity of tablet 00:00: mouth [place] 00 daily. Medical Branch aspirin 81 2020-0 Yes [id number] 81mg Take 1 U nivers mg chewable 5-09 tablet by ity of tablet 00:00: mouth [place] 00 daily with Medical breakfast. Branch furosemide 2020-0 Yes [id number] 20mg Take 1 U nivers 20 mg 5-09 tablet by ity of tablet 00:00: mouth [place] 00 daily. Medical Branch aspirin 81 2020-0 Yes [id number] 81mg Take 1 U nivers mg chewable 5-09 tablet by ity of tablet 00:00: mouth [place] 00 daily with Medical breakfast. Branch furosemide 2020-0 Yes [id number] 20mg Take 1 U nivers 20 mg 5-09 tablet by ity of tablet 00:00: mouth [place] 00 daily. Medical Branch aspirin 81 2020-0 Yes [id number] 81mg Take 1 U nivers mg chewable 5-09 tablet by ity of tablet 00:00: mouth [place] 00 daily with Medical breakfast. Branch furosemide 2020-0 Yes [id number] 20mg Take 1 U nivers 20 mg 5-09 tablet by ity of tablet 00:00: mouth [place] 00 daily. Medical Branch aspirin 81 2020-0 Yes [id number] 81mg Take 1 U nivers mg chewable 5-09 tablet by ity of tablet 00:00: mouth [place] 00 daily with Medical breakfast. Branch furosemide 2020-0 Yes [id number] 20mg Take 1 U nivers 20 mg 5-09 tablet by ity of tablet 00:00: mouth [place] 00 daily. Medical Branch aspirin 81 2020-0 2021- No [id number] 81mg Take 1 Univers mg chewable 5- 12-18 tablet by it y of tablet 00:00: 00:00 mouth [place] 00 :00 daily with Medical breakfast. Branch furosemide 2020-0 2021- No [id number] 20mg Take 1 Univers 20 mg 5-09 12-18 tablet by ity of tablet 00:00: 00:00 mouth [place] 00 :00 daily. Medical Branch isosorbide 2020-0 2020- No [id number] 90mg Take 3 Univers mononitrate 5- 05-08 tablets by i ty of 30 mg 24 hr 00:00: 00:00 [place] tablet 00 :00 daily. Medical Branch isosorbide 2020-0 2020- No [id number] 90mg Take 3 Univers mononitrate 5-09 05-08 tablets by i ty of 30 mg 24 hr 00:00: 00:00 [place] tablet 00 :00 daily. Medical Branch maalox/lido 2020-0 2020- No 5mL 5 mL, [facility] Planone 2 03-23 05-08 Oral, ity of %viscous 20:45: 20:56 ONCE, 1: 00 :00 dose, Fri Medical suspension 03/23/20 at [facility] (COMPOUNDED 1545, ) Routine maalox/lido 2020-0 2020- No 5mL 5 mL, [facility] sydni 2 508 05-08 Oral, ity of %viscous 20:45: 20:56 ONCE, 1: 00 :00 dose, Fri Medical suspension 03/23/20 at [facility] (COMPOUNDED 1545, ) Routine acetaminoph 2020-0 [...] IV Push, ity of mg 07:59: Q4HPRN, [place] 14 Starting Medical 03/23/20 Branch at 0259, Until Discontinu ed, Routine, Chest pain morpHINE 2020-0 Yes 2mg 2 mg, Slow Uni vers injection 2 03-23 IV Push, ity of mg 07:59: Q4HPRN, [place] 14 Starting Medical 03/23/20 Branch at 0259, Until Discontinu ed, Routine, Chest pain magnesium 2020-0 2020- No 2g 2 g, IV Univ ers sulfate in 03-23 Piggyback, it y of water 2 07:45: 07:49 ONCE, 1 [place] gram/50 mL 00 :00 dose, Fri Medi birdie (4 %) 03/23/20 at [place] infusion 2 0245, g Routine KCL 2020-0 [...] Fri Medi birdie (4 %) 03/23/20 at [place] infusion 2 0245, g Routine KCL 2020-0 [...] -08 Oral, ity of (TYLENOL) 02:51: Q6HPRN, [place] tablet 650 29 Starting Medic al mg Madhavi 03/22/20 Branch at 215, Until Discontinu ed, Routine, Pain (scale 1-3) acetaminoph 2020-0 Yes 650mg 650 mg, Un mel en 08 Oral, ity of (TYLENOL) 02:51: Q6HPRN, [place] tablet 650 29 Starting Medic al mg [...] as mg 00 :00 dose, Madhavi [facility] 03/22/20 at Branch 2145, ADAMA aspirin 2020-0 2020- No 324mg 324 mg, Unive rs chewable 5-08 05-08 Oral, ity of tablet 324 02:37: 02:51 ONCE, 1 [place] as mg 00 :00 dose, [facility] 03/22/20 at Branch 2145, [place] isosorbide 2020-0 Yes [id number] 90mg Take 1.5 Univers mononitrate 5-08 tablets by it y of 60 mg 24 hr 00:00: mouth [place] tablet 00 daily. [facility] isosorbide 2020-0 Yes [id number] 90mg Take 1.5 Univers mononitrate 5-08 tablets by it y of 60 mg 24 hr 00:00: mouth [place] tablet 00 daily. [facility] isosorbide 2020-0 Yes [id number] 90mg Take 1.5 Univers mononitrate 5-08 tablets by it y of 60 mg 24 hr 00:00: mouth [place] tablet 00 daily. [facility] isosorbide 2020-0 Yes [id number] 90mg Take 1.5 Univers mononitrate 5-08 tablets by it y of 60 mg 24 hr 00:00: mouth [place] tablet 00 daily. [facility] isosorbide 2020-0 Yes [id number] 90mg Take 1.5 Univers mononitrate 5-08 tablets by it y of 60 mg 24 hr 00:00: mouth [place] tablet 00 daily. [facility] isosorbide 2020-0 Yes [id number] 90mg Take 1.5 Univers mononitrate 5-08 tablets by it y of 60 mg 24 hr 00:00: mouth [place] tablet 00 daily. [facility] isosorbide 2020-0 Yes [id number] 90mg Take 1.5 Univers mononitrate 5-08 tablets by it y of 60 mg 24 hr 00:00: mouth [place] tablet 00 daily. [facility] isosorbide 2020-0 Yes [id number] 90mg Take 1.5 Univers mononitrate 5-08 tablets by it y of 60 mg 24 hr 00:00: mouth [place] tablet 00 daily. Medical Branch isosorbide 2019-0 Yes [id number] 90mg Take 1.5 Univers mononitrate 5-08 tablets by it y of 60 mg 24 hr 00:00: mouth [place] tablet 00 daily. Medical Branch isosorbide 2019-0 2021- No [id number] 90mg Take 1.5 Univers mononitrate 5-08 12-18 tablets by i ty of 60 mg 24 hr 00:00: 00:00 mouth [place] tablet 00 :00 daily. Medical Branch acetaminoph 2020- No [id number] 975mg Take 3 Univers en 325 mg 5-08 05-19 tablets by ity of tablet 00:00: 04:59 mouth [place] 00 :00 every 8 Medical (eight) Branch hours for 10 days. acetaminoph 2020- No [id number] 975mg Take 3 Univers en 325 mg 5-08 05-19 tablets by ity of tablet 00:00: 04:59 mouth [place] 00 :00 every 8 Medical (eight) Branch hours for 10 days. acetaminoph 2020- No [id number] 975mg Take 3 Univers en 325 mg 5-08 05-19 tablets by ity of tablet 00:00: 04:59 mouth [place] 00 :00 every 8 Medical (eight) Branch hours for 10 days. acetaminoph 2020- No [id number] 975mg Take 3 Univers en 325 mg 5-08 05-19 tablets by ity of tablet 00:00: 04:59 mouth [place] 00 :00 every 8 Medical (eight) Branch hours for 10 days. acetaminoph 2020- No [id number] 975mg Take 3 Univers en 325 mg 5-08 05-19 tablets by ity of tablet 00:00: 04:59 mouth [place] 00 :00 every 8 Medical (eight) Branch hours for 10 days. lidocaine 5 2020- No [id number] 1{patch Apply 1 Univers % (700 5-08 05-09 } Patch to ity of mg/patch) 00:00: 04:59 area(s) [place] patch 00 :00 once now Medical for 1 Branch dose. lidocaine 5 2020- No [id number] 1{patch Apply 1 Univers % (700 5-08 05-09 } Patch to ity of mg/patch) 00:00: 04:59 area(s) [place] patch 00 :00 once now Medical for 1 Branch dose. lidocaine 5 2019-0 2020- No [id number] 1{patch Apply 1 Univers % (700 5-08 05-08 } Patch to ity of mg/patch) 00:00: 00:00 area(s) [place] patch 00 :00 once now Medical for 1 Branch dose. lidocaine 5 2019-0 2020- No [id number] 1{patch Apply 1 Univers % (700 03-23-08 } Patch to ity of mg/patch) 00:00: 00:00 area(s) [place] patch 00 :00 once now Medical for 1 Branch dose. glipiZIDE 2020-0 Yes 5mg 5 mg, Univers (GLUCOTROL) 4-23 Oral, ity of tablet 5 mg 14:00: DAILY, [place] 00 First dose Medical on [facility] 03/08/20 at 0900, [facility] sp[facility] 2020-0 2020- No [id number] 12.5mg Take 0.5 Univers one 25 mg 4-23 05-24 tablets by ity of tablet 00:00: 04:59 mouth [place] 00 :00 daily for Medical 30 days. [place] spironolact 2020-0 2020- No [id number] 12.5mg Take 0.5 Univers one 25 mg 4-23 05-24 tablets by ity of tablet 00:00: 04:59 mouth [place] 00 :00 daily for Medical 30 days. [place] spironolact 2020-0 2020- No [id number] 12.5mg Take 0.5 Univers one 25 mg 4-23 05-24 tablets by ity of tablet 00:00: 04:59 mouth [place] 00 :00 daily for Medical 30 days. [place] spironolact 2020-0 2020- No [id number] 12.5mg Take 0.5 Univers one 25 mg 4-23 05-07 tablets by ity of tablet 00:00: 00:00 mouth [place] 00 :00 daily for Medical 30 days. [place] spironolact 2020-0 2020- No [id number] 12.5mg Take 0.5 Univers one 25 mg [...] mouth ity of tablet 20:15: 00:00 daily. [place] 29 :00 Medical Branch atorvastati 2020-0 [...] Discontinu ed, Routine, Insomnia Insulin 2020-0 Yes [id number] 10U inject 10 Univers Glargine 4-22 Units ity of 100 unit/mL 00:00: under the [place] (3 mL) 00 skin at Medical injection bedtime. Branch temazepam 2020-0 Yes [id number] 15mg Take 1 Un mel 15 mg 4-22 capsule by ity of capsule 00:00: mouth at [place] 00 bedtime as Medical needed for Branch Insomnia. furosemide 2020-0 Yes [id number] 40mg Take 1 Univers 40 mg 4-22 tablet by ity of tablet 00:00: mouth [place] 00 every Medical morning Branch and evening. Magnesium 2020-0 Yes [id number] 400mg Take 400 Univers Oxide 420 4-22 mg by ity of mg Tab 00:00: mouth [place] 00 daily. Medical Branch potassium 2020-0 Yes [id number] 20meq Take 20 Univers chloride 20 4-22 mEq by ity of mEq packet 00:00: mouth [place] 00 daily. Medical Take with Branch lasix in the morning isosorbide 2020-0 Yes [id number] 15mg Take 0.5 Univers mononitrate 4-22 tablets by it y of 30 mg 24 hr 00:00: mouth [place] tablet 00 daily. Medical Hold if Branch systolic blood pressure less than 120 Insulin 2020-0 Yes [id number] 10U inject 10 Univers Glargine 4-22 Units ity of 100 unit/mL 00:00: under the [place] (3 mL) 00 skin at Medical injection bedtime. Branch temazepam 2020-0 Yes [id number] 15mg Take 1 Un mel 15 mg 4-22 capsule by ity of capsule 00:00: mouth at [place] 00 bedtime as Medical needed for Branch Insomnia. furosemide 2020-0 Yes [id number] 40mg Take 1 Univers 40 mg 4-22 tablet by ity of tablet 00:00: mouth [place] 00 every Medical morning Branch and evening. Magnesium 2020-0 Yes [id number] 400mg Take 400 Univers Oxide 420 4-22 mg by ity of mg Tab 00:00: mouth [place] 00 daily. Medical Branch potassium 2020-0 Yes [id number] 20meq Take 20 Univers chloride 20 4-22 mEq by ity of mEq packet 00:00: mouth [place] 00 daily. Medical Take with Branch lasix in the morning isosorbide 2020-0 Yes [id number] 15mg Take 0.5 Univers mononitrate 4-22 tablets by it y of 30 mg 24 hr 00:00: mouth [place] tablet 00 daily. Medical Hold if Branch systolic blood pressure less than 120 Insulin 2020-0 Yes [id number] 10U inject 10 Univers Glargine 4-22 Units ity of 100 unit/mL 00:00: under the [place] (3 mL) 00 skin at Medical injection bedtime. Branch temazepam 2020-0 Yes [id number] 15mg Take 1 Un mel 15 mg 4-22 capsule by ity of capsule 00:00: mouth at [place] 00 bedtime as Medical needed for Branch Insomnia. furosemide 2020-0 Yes [id number] 40mg Take 1 Univers 40 mg 4-22 tablet by ity of tablet 00:00: mouth [place] 00 every Medical morning Branch and evening. Magnesium 2020-0 Yes [id number] 400mg Take 400 Univers Oxide 420 4-22 mg by ity of mg Tab 00:00: mouth [place] 00 daily. Medical Branch potassium 2020-0 Yes [id number] 20meq Take 20 Univers chloride 20 4-22 mEq by ity of mEq packet 00:00: mouth [place] 00 daily. Medical Take with Branch lasix in the morning isosorbide 2020-0 Yes [id number] 15mg Take 0.5 Univers mononitrate 4-22 tablets by it y of 30 mg 24 hr 00:00: mouth [place] tablet 00 daily. Medical Hold if Branch systolic blood pressure less than 120 Insulin 2020-0 Yes [id number] 10U inject 10 Univers Glargine 4-22 Units ity of 100 unit/mL 00:00: under the [place] (3 mL) 00 skin at Medical injection bedtime. Branch Magnesium 2020-0 Yes [id number] 400mg Take 400 Univers Oxide 420 4-22 mg by ity of mg Tab 00:00: mouth [place] 00 daily. Medical Branch vitamin 2020-0 2020- No [id number] 1000ug Take 1 Univers B-12 1,000 4-22 07-22 tablet by ity of mcg tablet 00:00: 04:59 mouth [place] 00 :00 daily for Medical 90 days. Branch vitamin 2020-0 2020- No [id number] 1000ug Take 1 Univers B-12 1,000 4-22 07-22 tablet by ity of mcg tablet 00:00: 04:59 mouth [place] 00 :00 daily for Medical 90 days. Branch vitamin 2019-0 2020- No [id number] 1000ug Take 1 Univers B-12 1,000 4-06 06-22 tablet by ity of mcg tablet 00:00: 04:59 mouth [place] 00 :00 daily for Medical 90 days. Branch vitamin 2019-0 2020- No [id number] 1000ug Take 1 Univers B-12 1,000 4-06 06-22 tablet by ity of mcg tablet 00:00: 04:59 mouth [place] 00 :00 daily for Medical 90 days. Branch glipiZIDE 5 2019- 2020- No [id number] 2.5mg Take 0.5 Univers mg tablet 03-07 tablets by ity of 00:00: 04:59 mouth 2 [place] 00 :00 (two) Medical times Branch daily before breakfast and dinner for 30 days. metoprolol 2019- 2020- No [id number] 25mg Take 1 Univers succinate 03-07 tablet by ity of XL 25 mg 24 00:00: 04:59 mouth 2 [place] hr tablet 00 :00 (two) Medical times Branch daily for 30 days. OLANZapine 2019- 2020- No [id number] 2.5mg Take 1 Univers 2.5 mg 03-07 tablet by ity of tablet 00:00: 04:59 mouth at [place] 00 :00 bedtime Medical for 30 Branch days. ranolazine 2019-0 2020- No [id number] 1000mg Take 2 Univers 500 mg 12 03-07 tablets by ity of hr tablet 00:00: 04:59 mouth [place] 00 :00 every 12 Medical (twelve) Branch hours for 30 days. aspirin 81 2019- 2020- No [id number] 81mg Take 1 Univers mg chewable 03-07-23 tablet by it y of tablet 00:00: 04:59 mouth [place] 00 :00 daily with Medical breakfast Branch for 30 days. atorvastati 2019-0 2020- No [id number] 40mg Take 1 Univers n 40 mg 03-07- tablet by ity of tablet 00:00: 04:59 mouth at [place] 00 :00 bedtime Medical for 30 Branch days. glipiZIDE 5 2019-0 2020- No [id number] 2.5mg Take 0.5 Univers mg tablet 4-22 05-23 tablets by ity of 00:00: 04:59 mouth 2 [place] 00 :00 (two) Medical times Branch daily before breakfast and dinner for 30 days. metoprolol 2019- 2020- No [id number] 25mg Take 1 Univers succinate 4-22 05-23 tablet by ity of XL 25 mg 24 00:00: 04:59 mouth 2 [place] hr tablet 00 :00 (two) Medical times Branch daily for 30 days. OLANZapine 2019- 2020- No [id number] 2.5mg Take 1 Univers 2.5 mg 4-22 05-23 tablet by ity of tablet 00:00: 04:59 mouth at [place] 00 :00 bedtime Medical for 30 Branch days. ranolazine 2019- 2020- No [id number] 1000mg Take 2 Univers 500 mg 12 4-22 05-23 tablets by ity of hr tablet 00:00: 04:59 mouth [place] 00 :00 every 12 Medical (twelve) Branch hours for 30 days. aspirin 81 2019- 2020- No [id number] 81mg Take 1 [facility] mg chewable 4-22 05-23 tablet by it y of tablet 00:00: 04:59 mouth [place] 00 :00 daily with Medical breakfast Branch for 30 days. atorvastati 2019-0 2020- No [id number] 40mg Take 1 [facility] n 40 mg 4-22 05-23 tablet by ity of tablet 00:00: 04:59 mouth at [place] 00 :00 bedtime Medical for 30 Branch days. glipiZIDE 5 2019- 2020- No [id number] 2.5mg Take 0.5 [facility] mg tablet - 05-23 tablets by ity of 00:00: 04:59 mouth 2 [place] 00 :00 (two) Medical times Branch daily before breakfast and dinner for 30 days. metoprolol 2019-0 2020- No [id number] 25mg Take 1 [facility] succinate 4-22 05-23 tablet by ity of XL 25 mg 24 00:00: 04:59 mouth 2 [place] hr tablet 00 :00 (two) Medical times Branch daily for 30 days. OLANZapine 2019-0 2020- No [id number] 2.5mg Take 1 [facility] 2.5 mg 4-22 05-23 tablet by ity of tablet 00:00: 04:59 mouth at [place] 00 :00 bedtime Medical for 30 Branch days. ranolazine 2020- 2020- No [id number] 1000mg Take 2 [facility] 500 mg 12 4-22 05-23 tablets by ity of hr tablet 00:00: 04:59 mouth [place] 00 :00 every 12 Medical (twelve) Branch hours for 30 days. aspirin 81 2020- No [id number] 81mg Take 1 [facility] mg chewable 4-22 05-23 tablet by it y of tablet 00:00: 04:59 mouth [place] 00 :00 daily with Medical breakfast Branch for 30 days. atorvastati 2019- 2020- No [id number] 40mg Take 1 [facility] n 40 mg 4-22 05-23 tablet by ity of tablet 00:00: 04:59 mouth at [place] 00 :00 bedtime Medical for 30 Branch days. glipiZIDE 5 2020- No [id number] 2.5mg Take 0.5 [facility] mg tablet 03-07 05-23 tablets by ity of 00:00: 04:59 mouth 2 [place] 00 :00 (two) Medical times Branch daily before breakfast and dinner for 30 days. metoprolol 2019-2019- No [id number] 25mg Take 1 [facility] succinate 4-22 05-23 tablet by ity of XL 25 mg 24 00:00: 04:59 mouth 2 [place] hr tablet 00 :00 (two) Medical times Branch daily for 30 days. ranolazine 2019- 2020- No [id number] 1000mg Take 2 [facility] 500 mg 12 4-22 05-23 tablets by ity of hr tablet 00:00: 04:59 mouth [place] 00 :00 every 12 Medical (twelve) Branch hours for 30 days. atorvastati 2019- 2020- No [id number] 40mg Take 1 [facility] n 40 mg 4-22 05-23 tablet by ity of tablet 00:00: 04:59 mouth at [place] 00 :00 bedtime Medical for 30 Branch days. furosemide 2019- 2020- No [id number] 40mg Take 1 [facility] 40 mg 4-22 05-08 tablet by ity of tablet 00:00: 00:00 mouth [place] 00 :00 every Medical morning Branch and evening. aspirin 81 2019- 2020- No [id number] 81mg Take 1 [facility] mg chewable 4-22 05-08 tablet by it y of tablet 00:00: 00:00 mouth [place] 00 :00 daily with Medical breakfast Branch for 30 days. isosorbide 2019- No [id number] 15mg Take 0.5 [facility] mononitrate 03-07-08 tablets by i ty of 30 mg 24 hr 00:00: 00:00 mouth [place] tablet 00 :00 daily. Medical Hold if Branch systolic blood pressure less than 120 Insulin 2019- No [id number] 10U inject 10 [facility] Glargine 03-07 05-08 Units ity of 100 unit/mL 00:00: 00:00 under the [place] (3 mL) 00 :00 skin at Medical injection bedtime. Branch glipiZIDE 5 2019- No [id number] 2.5mg Take 0.5 [facility] mg tablet 03-07-08 tablets by ity of 00:00: 00:00 mouth 2 [place] 00 :00 (two) Medical times Branch daily before breakfast and dinner for 30 days. metoprolol 2019- No [id number] 25mg Take 1 [facility] succinate 03-07-08 tablet by ity of XL 25 mg 24 00:00: 00:00 mouth 2 [place] hr tablet 00 :00 (two) Medical times Branch daily for 30 days. ranolazine 2019- No [id number] 1000mg Take 2 [facility] 500 mg 12 03-07-08 tablets by ity of hr tablet 00:00: 00:00 mouth [place] 00 :00 every 12 Medical (twelve) Branch hours for 30 days. furosemide 2019-2019- No [id number] 40mg Take 1 [facility] 40 mg 03-07 05-08 tablet by ity of tablet 00:00: 00:00 mouth [place] 00 :00 every Medical morning Branch and evening. aspirin 81 2019- 2020- No [id number] 81mg Take 1 [facility] mg chewable - 05-08 tablet by it y of tablet 00:00: 00:00 mouth [place] 00 :00 daily with Medical breakfast Branch for 30 days. atorvastati 2019- 2020- No [id number] 40mg Take 1 [facility] n 40 mg - 05-08 tablet by ity of tablet 00:00: 00:00 mouth at [place] 00 :00 bedtime Medical for 30 Branch days. Magnesium 2019-2019- No [id number] 400mg Take 400 [facility] Oxide 420 - 05-08 mg by ity of mg Tab 00:00: 00:00 mouth [place] 00 :00 daily. Medical Branch vitamin 2019-2019- No [id number] 1000ug Take 1 [facility] B-12 1,000 4-22 05-08 tablet by ity of mcg tablet 00:00: 00:00 mouth [place] 00 :00 daily for Medical 90 days. Branch isosorbide 2019- No [id number] 15mg Take 0.5 [facility] mononitrate 4-22 05-08 tablets by i ty of 30 mg 24 hr 00:00: 00:00 mouth [place] tablet 00 :00 daily. Medical Hold if Branch systolic blood pressure less than 120 OLANZapine 2019-2019- No [id number] 2.5mg Take 1 [facility] 2.5 mg 4-22 05-07 tablet by ity of tablet 00:00: 00:00 mouth at [place] 00 :00 bedtime Medical for 30 Branch days. temazepam 2019- No [id number] 15mg Take 1 U nivers 15 mg 4-22 05-07 capsule by ity of capsule 00:00: 00:00 mouth at [place] 00 :00 bedtime as Medical needed for Branch Insomnia. potassium 2019- No [id number] 20meq Take 20 Univers chloride 20 4-22 05-07 mEq by ity o f mEq packet 00:00: 00:00 mouth [place] 00 :00 daily. Medical Take with Branch lasix in the morning OLANZapine 2019- No [id number] 2.5mg Take 1 [facility] 2.5 mg 4-22 05-07 tablet by ity of tablet 00:00: 00:00 mouth at [place] 00 :00 bedtime Medical for 30 Branch days. temazepam 2019- No [id number] 15mg Take 1 U nivers 15 mg 4-22 05-07 capsule by ity of capsule 00:00: 00:00 mouth at [place] 00 :00 bedtime as Medical needed for Branch Insomnia. potassium 2019- No [id number] 20meq Take 20 [facility] chloride 20 4-22 05-07 mEq by ity o f mEq packet 00:00: 00:00 mouth [place] 00 :00 daily. Medical Take with Branch lasix in the morning isosorbide 2019- No 60mg 60 mg, Univ ers mononitrate 4-21 04-21 Oral, ity of (IMDUR) 24 14:00: 13:43 DAILY, [place] hr tablet 00 :56 First dose Medi birdie 60 mg on [facility] 03/06/20 at 0900, Until Discontinu ed, Routine OLANZapine 2020-0 Yes 2.5mg 2.5 mg, Uni vers (ZyPREXA) 4-21 Oral, QHS, ity of tablet 2.5 02:00: First dose [place] mg 00 on [facility] 03/05/20 at Branch 2100, Until Discontinu ed, Routine insulin 2020-0 Yes 10U 10 Units, Unive rs glargine 4-21 Subcutaneo ity o f (LANTUS 02:00: us, QHS, [place] U-100) 00 First dose Medical injection on [facility] 10 Units 03/05/20 at 2100, Until Discontinu ed, Routine donepezil 2020-0 Yes 5mg 5 mg, Univers (ARICEPT) 4-21 Oral, QHS, ity of tablet 5 mg 02:00: First dose [place] 00 on [facility] 03/05/20 at Branch 2100, Until Discontinu ed, Routine atorvastati 2020-0 Yes 40mg 40 mg, Univ ers n (LIPITOR) 4-21 Oral, QHS, it y of tablet 40 02:00: First dose [place] mg 00 on [facility] 03/05/20 at Branch 2100, Until Discontinu ed, Routine isosorbide 2020-0 2020- No 30mg 30 mg, Univ ers mononitrate 03-05 04-20 Oral, ity of (IMDUR) 24 15:30: 15:21 ONCE, 1 [place] hr tablet 00 :00 dose, [facility] Medic al 30 mg 03/05/20 at Branch 1030, Routine spironolact 2020-0 Yes 12.5mg 12.5 mg, Univers one 4-20 Oral, ity of (ALDACTONE) 14:00: DAILY, [place] tablet 12.5 00 First dose Me dical mg on [facility] 03/05/20 at 0900, Until Discontinu ed, Routine memantine 2020-0 Yes 10mg 10 mg, Univer s (NAMENDA) 4-20 Oral, ity of tablet 10 14:00: DAILY, [place] mg 00 First dose Medical on [facility] 03/05/20 at 0900, Until Discontinu ed, Routine
member service specialist approving Restricted medication : [facility] lisinopril 2020-0 2020- No 5mg 5 [...] 500 mg 00 First dose Medical on [facility] Branch 03/05/20 at 0800, Until Discontinu ed, Routine metoprolol 2020-0 Yes 25mg 25 mg, Unive rs succinate -20 Oral, BID, ity of XL (TOPROL 13:00: First dose [place] XL) tablet 00 on [facility] Medical 25 mg 03/05/20 at Branch 0800, Until Discontinu ed, Routine magnesium 2020-0 Yes 400mg 400 mg, Univ ers oxide -20 Oral, BID, ity of (MAG-OX 13:00: [place] 400) tablet 00 on [facility] Medica l 400 mg 03/05/20 at Branch [...] dose [place] ular + Fsbg 00 on [facility] Medica l Testing 03/05/20 at Branch 0730, [...] Medica l 25 mL [facility] 03/04/20 at 2202, Until Discontinu ed, ADAMA, Blood Glucose < or = 70 mg/dL and patient is unable to swallow or has mental status changes. furosemide 2020-0 Yes 40mg 40 mg, Unive rs (LASIX) 4-20 Oral, ity of tablet 40 03:00: QAM+PM, [place] mg 00 First dose Medical on [facility] 03/04/20 at 2200, Until Discontinu ed, Routine cyanocobala 2020-0 Yes 1000ug 1,000 mcg, Univers min -20 Subcutaneo ity of (VITAMIN 03:00: us, Q24H, [place] B12) 00 First dose Medical injection on [facility] 1,000 mcg 03/04/20 at 2200, Until Discontinu ed, Routine heparin 2020-0 Yes 5000U 5,000 Univers (porcine) 4-20 Units, ity of injection 03:00: Subcutaneo [place] 5,000 Units 00 us, Q8H, Medi birdie First dose Branch on [place] 03/04/20 at 2200, Until Discontinu ed, Routine ondansetron 2020-0 Yes 4mg 4 mg, Slow Univers (ZOFRAN 4-20 IV Push, ity of (PF)) 02:34: Q6HPRN, [place] injection 4 40 Starting Medi birdie mg [facility] 03/04/20 at 2134, Until Discontinu ed, Routine, Nausea and Vomiting (N/V) traMADol 2020-0 2020- No 50mg 50 mg, Univer s (ULTRAM) 4-20 04-22 Oral, ity of tablet 50 02:34: 02:33 Q8HPRN, [place] mg 23 :23 Starting Medical [facility] 03/04/20 at 2134, Until 03/06/20 at 2133, Routine, Pain (scale 4-6) acetaminoph 2019-0 Yes 650mg 650 mg, Un mel en 4-20 Oral, ity of (TYLENOL) 02:34: Q6HPRN, [place] tablet 650 20 Starting Medic al mg [facility] 03/04/20 at 2134, Until Discontinu ed, Routine, Pain (scale 1-3) lisinopril 2019-0 Yes [id number] 5mg Take 1 [facility] 5 mg tablet 4-18 tablet by ity of 00:00: mouth [place] 00 daily. Medical Branch isosorbide 2019-0 Yes [id number] 30mg Take 1 [facility] mononitrate 4-18 tablet by ity of 30 mg 24 hr 00:00: mouth [place] tablet 00 daily. Medical Branch lisinopril 2019-0 Yes [id number] 5mg Take 1 [facility] 5 mg tablet 4-18 tablet by ity of 00:00: mouth [place] 00 daily. Medical Branch isosorbide 2019-0 Yes [id number] 30mg Take 1 [facility] mononitrate 4-18 tablet by ity of 30 mg 24 hr 00:00: mouth [place] tablet 00 daily. Medical Branch lisinopril 2019-0 2020- No [id number] 5mg Take 1 [facility] 5 mg tablet 4-18 04-22 tablet by it y of 00:00: 00:00 mouth [place] 00 :00 daily. Medical Branch isosorbide 2019-0 2020- No [id number] 30mg Take 1 [facility] mononitrate 4-18 04-22 [...] ity of 12.5 mg 17:34: mouth 2 [place] 27 (two) Medical times Branch daily. MULTIVITAMI 2020-0 Yes Take by Un mel N ORAL 4-17 mouth. ity of 17:34: [place] [address] Medical Branch thiamine 2020-0 Yes 100mg Take 100 Univ ers (VITAMIN 4-17 mg by ity of B-1) 100 mg 17:34: mouth [place] tablet 27 daily. Medical Branch aspirin 81 2020-0 Yes 81mg Take 81 mg U nivers mg chewable 4-17 by mouth ity of tablet 17:34: daily. [place] [address] Medical Branch atorvastati 2020-0 Yes 40mg Take 40 mg Univers n 40 mg 4-17 by mouth ity of tablet 17:34: at [place] 27 bedtime. Medical Branch NaCl 0.9% 2020-0 [...] 4-17 mouth. ity of complex and 17:34: [place] C (B 27 Medical COMPLEX-VIT Branch RAZA C-FOLIC ACID ORAL) Cholecalcif 2020-0 Yes Take by Un mel ann, 4-17 mouth. ity of Vitamin D3, 17:34: [place] 2,000 unit 27 Medical capsule Branch metoprolol 2020-0 Yes 12.5mg Take 12.5 Univers tartrate 4-17 mg by ity of 12.5 mg 17:34: mouth 2 [place] 27 (two) Medical times Branch daily. MULTIVITAMI [...] Hospital Medical 03/01/20 at Branch 2100, [facility] 2020-0 Yes [id number] 40mg Take 1 [facility] 40 mg 4-17 tablet by ity of tablet 00:00: mouth [place] 00 every Medical morning Branch and evening. potassium 2020-0 Yes [id number] 20meq Take 20 Univers chloride 20 4-17 mEq by ity of mEq packet 00:00: mouth [place] 00 daily. Medical Branch vitamin 2020-0 Yes [id number] 1000ug Take 1 U nivers B-12 1,000 4-17 tablet by ity of mcg tablet 00:00: mouth [place] 00 daily. Medical Branch furosemide 2020-0 Yes [id number] 40mg Take 1 [facility] 40 mg 4-17 tablet by ity of tablet 00:00: mouth [place] 00 every Medical morning Branch and evening. potassium 2020-0 Yes [id number] 20meq Take 20 [facility] chloride 20 4-17 mEq by ity of mEq packet 00:00: mouth [place] 00 daily. Medical Branch vitamin 2020-0 Yes [id number] 1000ug Take 1 U nivers B-12 1,000 4-17 tablet by ity of mcg tablet 00:00: mouth [place] 00 daily. Medical Branch furosemide 2020-0 2020- No [id number] 40mg Take 1 [facility] 40 mg 03-02-22 tablet by ity of tablet 00:00: 00:00 mouth [place] 00 :00 every Medical morning Branch and evening. potassium 2020-0 2020- No [id number] 20meq Take 20 [facility] chloride 20 -02 03-22 mEq by ity o f mEq packet 00:00: 00:00 mouth [place] 00 :00 daily. Medical Branch vitamin 2020-0 2020- No [id number] 1000ug Take 1 [facility] B-12 1,000 -02 [...] at 0900, Until Discontinu ed, Routine
member service specialist approving Restricted medication : MEGADC lisinopril 2020-0 Yes 5mg 5 mg, Univer s (PRINIVIL,Z 4-16 Oral, ity of ESTRIL) 14:00: DAILY, [place] tablet 5 mg 00 First dose Me dical on [facility] 03/01/20 at 0900, Until Discontinu ed, Routine enoxaparin 2020-0 Yes 30mg 30 mg, Unive rs (LOVENOX) 4-16 Subcutaneo ity of injection 14:00: [place], DAILY, [place] 30 mg 00 First dose Medical on [facility] 03/01/20 at 0900, Until Discontinu ed, Routine KCL 2020-0 2020- No 20meq 20 mEq, Univers (KLOR-CON 03-01 Oral, ity of M20) tablet 14:00: 13:26 DAILY, [place] 20 mEq 00 :35 First dose Medical on [facility] 03/01/20 at 0900, Until Discontinu ed, Routine KCL 2020-0 Yes 40meq 40 mEq, Univers (KLOR-CON 16 Oral, BID, ity of M20) tablet 13:30: First dose [place] 40 mEq 00 on [facility] 03/01/20 at Branch 0830, Until Discontinu ed, Routine magnesium 2020-0 2020- No 2g 2 g, IV Univ ers sulfate in 03-01 Infusion, ity of water 2 03:30: 03:30 ONCE, 1 [place] gram/50 mL 00 :00 dose, [facility] birdie (4 %) 2 g 02/29/20 at [facility] piggyback 2230 metoprolol 2020-0 2020- No 5mg 5 mg, Slow Univers (LOPRESSOR) 03-01 IV Push, ity of injection 5 03:30: 03:37 ONCE, 1 [place] mg 00 :00 dose, [facility] 02/29/20 at Branch 2230, ADAMA glipiZIDE 2020-0 Yes 5mg 5 mg, Univers (GLUCOTROL) 03-01 Oral, ity of tablet 5 mg 02:45: BIDAC, [place] 00 First dose Medical on [facility] 02/29/20 at 2145, Until Discontinu ed, Routine insulin 2020-0 Yes 10U 10 Units, Unive rs glargine 16 Subcutaneo ity o f (LANTUS 02:45: us, QHS, [place] U-100) 00 First dose Medical injection on [facility] Branch 10 Units 02/29/20 at 2145, Until Discontinu ed, Routine OLANZapine 2020-0 Yes 2.5mg 2.5 mg, Uni vers (ZyPREXA) 16 Oral, QHS, ity of tablet 2.5 02:45: First dose [place] mg 00 on [facility] 02/29/20 at Branch 2145, Until Discontinu [...] 650 25 Starting Medic al mg Wed [place] 02/29/20 at 1857, Until Discontinu ed, Routine, Pain (scale 1-3) NaCl 0.9% 2019-2019- No 500mL at 999 Univ ers (NS) bolus 02-28- mL/hr, 500 it y of infusion 23:30: 23:37 mL, IV [place] 500 mL 00 :00 Infusion, Medical ONCE, 1 Branch dose, [facility] 02/29/20 at 1830, ADAMA acetaminoph 2019-2019- No 650mg 650 mg, U nivers en 02-2815 Oral, ity of (TYLENOL) 23:00: 22:36 ONCE, 1 [place] tablet 650 00 :00 dose, Thu Medi birdie mg 02/29/20 at Branch 1800, [facility] donepezil 5 2019-0 Yes 5mg Take 5 mg U nivers mg tablet 02-14 by mouth ity of 00:00: daily. [place] 00 [facility] Branch donepezil 5 2019-0 2020- No 5mg Take 5 mg Univers mg tablet 02-14 by mouth ity o f 00:00: 00:00 daily. [place] 00 :00 Medical Branch nitroglycer 2019- 2020- [...] N ORAL 3-03 mouth. ity of 23:00: [place] [address] Medical Branch thiamine 2020-0 Yes 100mg Take 100 Univ ers (VITAMIN 3-03 mg by ity of B-1) 100 mg 23:00: mouth [place] tablet 52 daily. Medical Branch aspirin 81 2020-0 Yes 81mg Take 81 mg U nivers mg chewable 3-03 by mouth ity of tablet 23:00: daily. [place] [address] Medical Branch atorvastati 2020-0 Yes 40mg Take 40 mg Univers n 40 mg 3-03 by mouth ity of tablet 23:00: at [place] 52 bedtime. Medical Branch NaCl 0.9% [...] of Vitamin D3, 23:00: [place] 2,000 unit 52 Medical capsule Branch metoprolol 2020-0 Yes 12.5mg Take 12.5 Univers tartrate 3-03 mg by ity of 12.5 mg 23:00: mouth 2 [place] 52 (two) Medical times Branch daily. MULTIVITAMI 2020-0 Yes Take by Un mel N ORAL 3-03 mouth. ity of 23:00: [place] [address] Medical Branch thiamine 2020-0 Yes 100mg Take 100 Univ ers (VITAMIN 3-03 mg by ity of B-1) 100 mg 23:00: mouth [place] tablet 52 daily. Medical Branch aspirin 81 2020-0 Yes 81mg Take 81 mg U nivers mg chewable 3-03 by mouth ity of tablet 23:00: daily. [place] [address] Medical Branch atorvastati 2020-0 Yes 40mg Take 40 mg Univers n 40 mg 3-03 by mouth ity of tablet 23:00: at [place] [address] bedtime. Medical Branch NaCl 0.9% 2020-0 Yes 10mL Inject 10 Uni vers (NS) Soln 3-03 mL ity of 10 mL with 23:00: intravenou [place] sodium 52 sly once Medical chloride now. Branch 2.5 mEq/mL SolP 17.125 mEq memantine-d 2020-0 Yes 1{capsu Take 1 U nivers onepezil 3-03 le} capsule by ity o f (NAMZARIC) 23:00: mouth [place] 28-10 mg 52 daily. Medical CSpX Branch [...] by mouth ity of tablet 23:00: daily. [place] [address] Medical Branch atorvastati 2020-0 Yes 40mg Take 40 mg Univers n 40 mg 3-03 by mouth ity of tablet 23:00: at [place] [address] bedtime. Medical Branch NaCl 0.9% 2020-0 Yes [...] ity of 12.5 mg 23:00: mouth 2 [place] 52 (two) Medical times Branch daily. MULTIVITAMI 2020-0 Yes Take by Un mel N ORAL 3-03 mouth. ity of 23:00: [place] [address] Medical Branch thiamine 2020-0 Yes 100mg Take 100 Univ ers (VITAMIN 3-03 mg by ity of B-1) 100 mg 23:00: mouth [place] tablet 52 daily. Medical Branch aspirin 81 2020-0 Yes 81mg Take 81 mg U nivers mg chewable 3-03 by mouth ity of tablet 23:00: daily. [address] Branch atorvastati 2020-0 Yes 40mg Take 40 mg Univers n 40 mg 3-03 by mouth ity of tablet 23:00: at [place] [address] bedtime. Medical Branch NaCl 0.9% 2019-0 Yes 10mL Inject 10 Uni vers (NS) Soln 3-03 mL ity of 10 mL with 23:00: intravenou [place] sodium 52 sly once Medical chloride now. [place] 2.5 mEq/mL SolP 17.125 mEq atorvastati 2019-0 Yes 40mg 40 mg, Univ ers n (LIPITOR) 3-03 Oral, QHS, it y of tablet 40 03:00: First dose [place] mg 00 on [facility] 01/16/20 at Branch 2100, Until Discontinu ed, Routine ranolazine 2019-0 2020- No [id number] 500mg Take 1 [facility] 500 mg 12 -01 17-03 tablet by ity of hr tablet 00:00: 04:59 mouth [place] 00 :00 every 12 Medical (twelve) Branch hours for 30 days. ranolazine 2020-0 2020- No [id number] 500mg Take 1 [facility] 500 mg 12 - 04-03 tablet by ity of hr tablet 00:00: 04:59 mouth [place] 00 :00 every 12 Medical (twelve) Branch hours for 30 days. ranolazine 2020-0 2020- No [id number] 500mg Take 1 [facility] 500 mg 12 3- 04-03 tablet by ity of hr tablet 00:00: 04:59 mouth [place] 00 :00 every 12 Medical (twelve) Branch hours for 30 days. ranolazine 2020-0 2020- No [id number] 500mg Take 1 [facility] 500 mg 12 [...] First dose [place] tablet 12.5 00 on [facility] Medica l mg 01/16/20 at Branch 0800, Until Discontinu ed, Routine Sliding 2020-0 Yes Subcutaneo Univ ers Scale 302 us, Q6H, ity of Insulin-Reg 12:00: First dose [place] ular + Fsbg 00 on [facility] Medica l Testing 01/16/20 at Branch 0600, [...] IV Push, ity of (PF)) 07:55: Q6HPRN, [place] injection 4 01 Starting Medi birdie mg [facility] 01/16/20 Branch at 0155, Until Discontinu ed, Routine, Nausea and Vomiting (N/V) morpHINE 2019- No 2mg 2 mg, Slow Un mel injection 2 01-1503 IV Push, ity of mg 07:54: 07:53 Q6HPRN, [place] 55 :55 Starting Medical 01/16/20 Branch at 0154, Until Thu01/17/20 at 0153, Routine, Pain (scale 7-10) traMADol 2019-0 2020- No 50mg 50 mg, Univer s (ULTRAM) 01-15 03-04 Oral, ity of tablet 50 07:54: 07:53 Q8HP, [facility]47 Starting Medical 01/16/20 Branch at 0154, Until Thu01/18/20 at 0153, Routine, Pain (scale 4-6) acetaminoph 2019-0 Yes 650mg 650 mg, Un mel en 01-15 Oral, ity of (TYLENOL) 07:54: Q6HPLewis, [place] tablet 650 44 Starting Medic al mg [facility] 01/16/20 Branch at 0154, Until Discontinu ed, [...] 01/15/20 at 2345, ADAMA furosemide 2018-11 Yes [id number] 40mg Take 1 [facility] 40 mg 0-26 tablet by ity of tablet 00:00: mouth [place] 00 daily. Medical Branch furosemide 2018-11 Yes [id number] 40mg Take 1 [facility] 40 mg 0-26 tablet by ity of tablet 00:00: mouth [place] 00 daily. Medical Branch furosemide 2018-11 Yes [id number] 40mg Take 1 [facility] 40 mg 0-26 tablet by ity of tablet 00:00: mouth [place] 00 daily. Medical Branch furosemide 2018-11 Yes [id number] 40mg Take 1 [facility] 40 mg 0-26 tablet by ity of tablet 00:00: mouth [place] 00 daily. Medical Branch furosemide 2018-11 2020- No [id number] 40mg Take 1 [facility] 40 mg 0-26 04-17 tablet by ity of tablet 00:00: 00:00 mouth [place] 00 :00 daily. Medical Branch magnesium 2018-11 Yes [id number] 400mg Take 400 Univers oxide 420 0-23 mg by ity of mg Tab 00:00: mouth [place] 00 daily. Medical Branch magnesium 2018-11 Yes [id number] 400mg Take 400 Univers oxide 420 0-23 mg by ity of mg Tab 00:00: mouth [place] 00 daily. Medical Branch magnesium 2018-11 Yes [id number] 400mg Take 400 Univers oxide 420 0-23 mg by ity of mg Tab 00:00: mouth [place] 00 daily. Medical Branch magnesium 2018-11 Yes [id number] 400mg Take 400 Univers oxide 420 0-23 mg by ity of mg Tab 00:00: mouth [place] 00 daily. Medical Branch magnesium 2019- Yes [id number] 400mg Take 400 Univers oxide 420 0-23 mg by ity of mg Tab 00:00: mouth [place] 00 daily. [facility] Branch magnesium 2019- Yes [id number] 400mg Take 400 Univers oxide 420 0-23 mg by ity of mg Tab 00:00: mouth [place] 00 daily. [facility] Branch magnesium 2018- 2020- No [id number] 400mg Take 400 Univers oxide 420 0-23 04-22 mg by ity of mg Tab 00:00: 00:00 mouth [place] 00 :00 daily. [facility] Branch Insulin 2019-0 Yes [id number] 30U inject 30 Univers Glargine 9-11 Units ity of 100 unit/mL 00:00: under the [place] (3 mL) 00 skin every Medical injection morning. Branch Insulin 2018-0 Yes [id number] 30U inject 30 Univers Glargine 9-11 Units ity of 100 unit/mL 00:00: under the [place] (3 mL) 00 skin every Medical injection morning. Branch Insulin 2018-0 Yes [id number] 30U inject 30 Univers Glargine 9-11 Units ity of 100 unit/mL 00:00: under the [place] (3 mL) 00 skin every Medical injection morning. Branch Insulin 2018-0 Yes [id number] 30U inject 30 Univers Glargine 9-11 Units ity of 100 unit/mL 00:00: under the [place] (3 mL) 00 skin every Medical injection morning. Branch Insulin 2019-0 Yes [id number] 30U inject 30 Univers Glargine 9-11 Units ity of 100 unit/mL 00:00: under the [place] (3 mL) 00 skin every Medical injection morning. Branch Insulin 2018-0 Yes [id number] 30U inject 30 Univers Glargine 9-11 Units ity of 100 unit/mL 00:00: under the [place] (3 mL) 00 skin every Medical injection morning. Branch Insulin 2018-0 Yes [id number] 30U inject 30 Univers Glargine 9-11 Units ity of 100 unit/mL 00:00: under the [place] (3 mL) 00 skin every Medical injection morning. Branch Insulin 2019-0 2020- No [id number] 30U inject 30 Univers Glargine 9-11 04-22 [...] mg under ity of 15:26: the skin. [place] [address] Medical Branch Cholecalcif 2018-0 Yes Take by Un mel ann, 5-10 mouth. ity of Vitamin D3, 15:26: [place] 2,000 unit 43 Medical capsule Branch metoprolol 0 Yes 12.5mg Take 12.5 Univers tartrate 5-10 mg by ity of 12.5 mg 15:26: mouth 2 [place] 43 (two) Medical times Branch daily. MULTIVITAMI Yes Take by Un mel N ORAL 5-10 mouth. ity of 15:26: [place] [address] Medical Branch thiamine 0 Yes 100mg Take 100 Univ ers (VITAMIN 5-10 mg by ity of B-1) 100 mg 15:26: mouth [place] tablet 43 daily. Medical Branch aspirin 81 0 Yes 81mg Take 81 mg U nivers mg chewable 5-10 by mouth ity of tablet 15:26: daily. [place] [address] Medical Branch atorvastati 0 Yes 40mg Take 40 mg Univers n 40 mg 5-10 by mouth ity of tablet 15:26: at [place] 43 bedtime. Medical Branch furosemide 0 Yes 40mg Take 40 mg U nivers 40 mg 5-10 by mouth ity of tablet 15:26: daily. [place] [address] Medical Branch NaCl 0.9% 2019-0 Yes 10mL [...] mg under ity of 15:26: the skin. [place] [address] [facility] Branch Cholecalcif 2018-0 Yes Take by [...] N ORAL 5-10 mouth. ity of 15:26: [place] [address] Medical Branch thiamine 0 Yes 100mg Take 100 Univ ers (VITAMIN 5-10 mg by ity of B-1) 100 mg 15:26: mouth [place] tablet 43 daily. Medical Branch aspirin 81 0 Yes 81mg Take 81 mg U nivers mg chewable 5-10 by mouth ity of tablet 15:26: daily. [place] [address] [facility] Branch atorvastati 0 Yes 40mg Take 40 mg Univers n 40 mg 5-10 by mouth ity of tablet 15:26: at [place] 43 bedtime. Medical Branch furosemide 0 Yes 40mg Take 40 mg U nivers 40 mg 5-10 by mouth ity of tablet 15:26: daily. [place] [address] [facility] Branch NaCl 0.9% 0 Yes 10mL Inject 10 Uni vers (NS) Soln 5-10 mL ity of 10 mL with 15:26: intravenou [place] sodium 43 sly once Medical chloride now. Branch 2.5 mEq/mL SolP 17.125 mEq insulin 2018-0 Yes [id number] inject 4 U nivers lispro, 5-10 Units ity of human, 100 00:00: [place] unit/mL 00 skin 3 Medical injection (three) Branch times daily before meals. insulin 2018-0 Yes [id number] 4U inject 4 U nivers lispro, 5-10 Units ity of human, 100 00:00: [place] unit/mL 00 skin 3 Medical injection (three) Branch times daily before meals. insulin 2018-0 Yes [id number] 4U inject 4 U nivers lispro, 5-10 Units ity of human, 100 00:00: [place] unit/mL 00 skin 3 Medical injection (three) Branch times daily before meals. insulin 2019-0 Yes [id number] 4U inject 4 U nivers lispro, 5-10 Units ity of human, 100 00:00: under the [place] unit/mL 00 skin 3 Medical injection (three) Branch times daily before meals. insulin 2019-0 Yes [id number] 4U inject 4 U nivers lispro, 5-10 Units ity of human, 100 00:00: under the [place] unit/mL 00 skin 3 Medical injection (three) Branch times daily before meals. insulin 2018-0 Yes [id number] 4U inject 4 U nivers lispro, 5-10 Units ity of human, 100 00:00: under the [place] unit/mL 00 skin 3 Medical injection (three) Branch times daily before meals. Insulin 2018-0 Yes [id number] 18U inject Uni vers Glargine 5-10 18-24 ity of 100 unit/mL 00:00: Units [place] (3 mL) 00 under the Medical injection skin every Bran ch morning. insulin 2018-0 Yes [id number] 4U inject 4 U nivers lispro, 5-10 Units ity of human, 100 00:00: under the [place] unit/mL 00 skin 3 Medical injection (three) Branch times daily before meals. insulin 2018-0 Yes [id number] 4U inject 4 U nivers lispro, 5-10 Units ity of human, 100 00:00: under the [place] unit/mL 00 skin 3 Medical injection (three) Branch times daily before meals. insulin 2018-0 Yes [id number] 4U inject 4 U nivers lispro, 5-10 Units ity of human, 100 00:00: under the [place] unit/mL 00 skin 3 Medical injection (three) Branch times daily before meals. insulin 2019-0 Yes [id number] 4U inject 4 U nivers lispro, 5-10 Units ity of human, 100 00:00: under the [place] unit/mL 00 skin 3 Medical injection (three) Branch times daily before meals. insulin 2018-0 Yes [id number] 4U inject 4 U nivers lispro, 5-10 Units ity of human, 100 00:00: under the [place] unit/mL 00 skin 3 Medical injection (three) Branch times daily before meals. insulin 2019- No [id number] 4U inject 4 Univers lispro, 5-10 05-07 Units ity of human, 100 00:00: 00:00 under the [place] unit/mL 00 :00 skin 3 Medical injection (three) Branch times daily before meals. insulin 2019- No [id number] 4U inject 4 Univers lispro, 5-10 05-07 Units ity of human, 100 00:00: 00:00 under the [place] unit/mL 00 :00 skin 3 Medical injection (three) Branch times daily before meals. Insulin 2018- No [id number] 18U inject Un mel Glargine 03-25 18-24 ity of 100 unit/mL 00:00: 00:00 [place] (3 mL) 00 :00 under the Medical injection skin every Bran ch morning. folic Yes Take by Univers acid/vit B 3-08 mouth. ity of complex and 16:39: [facility] ( 29 Medical COMPLEX-VIT Branch RAZA C-FOLIC ACID ORAL) potassium Yes 20meq Take 20 Univ ers chloride 20 3-08 mEq by ity of mEq packet 16:39: mouth [place] 29 daily. Medical Branch folic Yes Take by Univers acid/vit B 3-08 mouth. ity of complex and 16:39: [facility] ( 29 Medical COMPLEX-VIT Branch RAZA C-FOLIC ACID ORAL) potassium Yes 20meq Take 20 Univ ers chloride 20 3-08 mEq by ity of mEq packet 16:39: mouth [place] 29 daily. Medical Branch Potassium Potassium Yes Anneliese 1 capsule Common Chloride Chloride Millender with food [facility] Tylenol # 3 Tylenol # 3 Yes Anneliese one tab Common [place] Vitamin D-3 Vitamin D-3 Yes Anneliese 2 capsule Common Millender [facility] Humalog Humalog Yes Anneliese as Common Millender directed [facility] Aspir-Low Aspir-Low Yes Anneliese 1 tablet Common Millender [facility] Namzaric Namzaric Yes Anneliese 1 Common Millender [facility] Zyprexa Zyprexa Yes Anneliese [address] [facility] Vitamin B-1 Vitamin B-1 Yes Anneliese 1 tablet Common Millender [facility] Multivitami Multivitami Yes Anneliese as Common n n Millender directed [facility] Lantus Lantus Yes Anneliese as Common Millender directed [facility] Lasix Lasix Yes Anneliese 1 tablet Common Millender [facility] Isosorbide Isosorbide Yes Anneliese 1 tablet Common Mononitrate Mononitrate Millender in the [facility] Lyrica Lyrica Yes Anneliese 1 capsule Commo n Millender [facility] Immunizations Ordered Filled Immunization Date Status Comments Formerly [facility] e Immunization Name Name SARS-COV-2 COVID-19 2021-09-16 Completed Unive rsity of MODERNA VACCINE 00:00:00 [facility] SARS-COV-2 COVID-19 2021-09-16 Completed Unive rsity of MODERNA VACCINE 00:00:00 [facility] SARS-COV-2 COVID-19 2021-09-16 Completed Unive rsity of MODERNA VACCINE 00:00:00 [facility] SARS-COV-2 COVID-19 2021-09-16 Completed Unive rsity of MODERNA VACCINE 00:00:00 [facility] SARS-COV-2 COVID-19 2021-09-16 Completed Unive rsity of MODERNA VACCINE 00:00:00 [facility] SARS-COV-2 COVID-19 2021-08-17 Completed Unive rsity of MODERNA VACCINE 00:00:00 [facility] Influenza High Dose 2021-08-17 Completed Unive rsity of 00:00:00 [facility] SARS-COV-2 COVID-19 2021-08-17 Completed Unive rsity of MODERNA VACCINE 00:00:00 [facility] Influenza High Dose 2021-08-17 Completed Unive rsity of 00:00:00 [facility] SARS-COV-2 COVID-19 2021-08-17 Completed Unive rsity of MODERNA VACCINE 00:00:00 [facility] Influenza High Dose 2021-08-17 Completed Unive rsity of 00:00:00 [facility] SARS-COV-2 COVID-19 2021-08-17 Completed Unive rsity of MODERNA VACCINE 00:00:00 [facility] Influenza High Dose 2021-08-17 Completed Unive rsity of 00:00:00 [facility] SARS-COV-2 COVID-19 2021-08-17 Completed Unive rsity of MODERNA VACCINE 00:00:00 [facility] Influenza High Dose 2021-08-17 Completed Unive rsity of 00:00:00 [facility] Zoster(Zostavax)( 2020-09-14 Completed Unive rsity of ingles) 00:00:00 [facility] Zoster(Zostavax)( 2020-09-14 Completed Unive rsity of ingles) 00:00:00 [facility] Zoster(Zostavax)( 2020-09-14 Completed Unive rsity of ingles) 00:00:00 [facility] Zoster(Zostavax)( 2020-09-14 Completed Unive rsity of ingles) 00:00:00 [facility] Zoster(Zostavax)( 2020-09-14 Completed Unive rsity of ingles) 00:00:00 [facility] Influenza High Dose 2020-07-13 Completed Unive rsity of 00:00:00 [facility] Influenza High Dose 2020-07-13 Completed Unive rsity of 00:00:00 [facility] Influenza High Dose 2020-07-13 Completed Unive rsity of 00:00:00 [facility] Influenza High Dose 2020-07-13 Completed Unive rsity of 00:00:00 [facility] Influenza High Dose 2020-07-13 Completed Unive rsity of 00:00:00 [facility] Influenza High Dose 2019-09-15 Completed Unive rsity of 00:00:00 [facility] Influenza High Dose 2019-09-15 Completed Unive rsity of 00:00:00 [facility] Influenza High Dose 2019-09-15 Completed Unive rsity of 00:00:00 [facility] Influenza High Dose 2019-09-15 Completed Unive rsity of 00:00:00 [facility] Influenza High Dose 2019-09-15 Completed Unive rsity of 00:00:00 [facility] Influenza Virus 2018-09-09 Completed Universit y of Vaccine 00:00:00 [facility] Influenza Virus 2018-09-09 Completed Universit y of Vaccine 00:00:00 [facility] Influenza Virus 2018-09-09 Completed Universit y of Vaccine 00:00:00 [facility] Influenza Virus 2018-09-09 Completed Universit y of Vaccine 00:00:00 [facility] Influenza Virus 2018-09-09 Completed Universit y of Vaccine 00:00:00 [facility] Influenza Virus 2018-09-09 Completed Universit y of Vaccine 00:00:00 [facility] Influenza Virus 2018-09-09 Completed Universit y of Vaccine 00:00:00 [facility] Influenza Virus 2018-09-09 Completed Universit y of Vaccine 00:00:00 [facility] Influenza Virus 2018-09-09 Completed Universit y of Vaccine 00:00:00 [facility] Influenza Virus 2018-09-09 Completed Universit y of Vaccine 00:00:00 [facility] Influenza Virus 2018-09-09 Completed Universit y of Vaccine 00:00:00 [facility] Influenza Virus 2018-09-09 Completed Universit y of Vaccine 00:00:00 [facility] Influenza Virus 2018-09-09 Completed Universit y of Vaccine 00:00:00 [facility] Influenza Virus 2018-09-09 Completed Universit y of Vaccine 00:00:00 [facility] Influenza Virus 2018-09-09 Completed Universit y of Vaccine 00:00:00 [facility] Influenza Virus 2018-09-09 Completed Universit y of Vaccine 00:00:00 [facility] Influenza Virus 2018-09-09 Completed Universit y of Vaccine 00:00:00 [facility] Influenza Virus 2018-09-09 Completed Universit y of Vaccine 00:00:00 [facility] Influenza Virus 2018-09-09 Completed Universit y of Vaccine 00:00:00 [facility] Influenza Virus 2018-09-09 Completed Universit y of Vaccine 00:00:00 [facility] Influenza Virus 2018-09-09 Completed Universit y of Vaccine 00:00:00 [facility] Influenza Virus 2018-09-09 Completed Universit y of Vaccine 00:00:00 [facility] Influenza Virus 2018-09-09 Completed Universit y of Vaccine 00:00:00 [facility] Pneumococcal 2016-11-02 Completed University o f [...] 03:35:00 110 mm[Hg] Univer sity [facility] Diastolic blood 2022-04-17 03:35:00 77 [facility]Hg[facility] 2022-04-17 03:35:00 98 /min [facility] Oxygen saturation in 2022-04-17 03:35:00 99 /min [facility] Arterial blood by [facility] Pulse oximetry [place] Body temperature 2022-04-17 03:25:00 37.33 Priyanka [facility] Respiratory rate 2022-04-17 03:25:00 18 /min [facility] Body height 2022-04-17 03:25:00 170.2 cm [facility] Body weight 2022-04-17 03:25:00 77.111 kg [facility] BMI 2022-04-17 03:25:00 26.63 kg/m2 [facility] Systolic blood 2022-03-01 16:36:00 143 mm[Hg] Univer sity [facility] Diastolic blood 2022-03-01 16:36:00 80 mm[Hg] Unive rsity [facility] Heart rate 2022-03-01 16:36:00 98 /min [facility] [place] [facility] Respiratory rate 2022-03-01 16:36:00 16 /min [facility] [place] [facility] Oxygen saturation in 2022-03-01 16:36:00 97 /min University of Arterial blood by [facility] birdie Pulse oximetry Branch Body temperature 2022-03-01 11:42:00 36.94 Priyanka Univ ersity [facility] [place] [facility] Body height 2022-03-01 11:42:00 170.2 cm [facility] [place] [facility] Body weight 2022-03-01 11:42:00 77.111 kg [facility] [place] [facility] BMI 2022-03-01 11:42:00 26.63 kg/m2 [facility] [place] [facility] Systolic blood 2021-11-02 17:17:00 109 mm[Hg] Univer sity of pressure [place] [facility] Diastolic blood 2021-11-02 17:17:00 67 mm[Hg] Unive rsity of pressure [place] [facility] Heart rate 2021-11-02 17:17:00 84 /min [facility] [place] [facility] Body temperature 2021-11-02 17:17:00 36.44 Priyanka [facility] [place] [facility] Respiratory rate 2021-11-02 17:17:00 18 /min [facility] [place] [facility] Oxygen saturation in 2021-11-02 17:17:00 95 /min University of Arterial blood by [facility] Pulse oximetry Branch Body weight 2021-11-02 09:17:00 79.969 kg [facility] [place] [facility] BMI 2021-11-02 09:17:00 27.61 kg/m2 [facility] [place] [facility] Body height 2021-10-31 05:46:00 170.2 cm [facility] [place] [facility] Systolic blood 2021-04-25 22:36:00 118 mm[Hg] Univer sity of pressure [place] [facility] Diastolic blood 2021-04-25 22:36:00 70 mm[Hg] Unive rsity of pressure [place] [facility] Heart rate 2021-04-25 22:36:00 68 /min [facility] [place] [facility] Respiratory rate 2021-04-25 22:36:00 18 /min Univ ersity [facility] [place] [facility] Oxygen saturation in 2021-04-25 22:36:00 99 /min University of [facility]terial blood by [facility] Pulse oximetry Branch Body temperature 2021-04-25 [...] 98 /min University [facility]terial blood [facility] Pulse oximetry Branch Heart rate 2020-06-26 [...] 98 /min University of Arterial blood by [facility] Pulse oximetry Branch Heart rate 2020-06-26 [...] 97 /min University [facility] Arterial blood by [facility] Pulse oximetry Branch Body temperature 2020-05-24 [...] 97 /min University [facility]terial [facility] Pulse oximetry Branch Body temperature 2020-05-24 [...] 97 /min University of Arterial blood by [facility] birdie Pulse oximetry Branch Systolic blood 2020-03-23 [...] 99 /min University [facility]terial blood by [facility] Pulse oximetry Branch Body weight 2020-03-23 [...] 98 /min University [facility]terial blood [facility] Pulse oximetry Branch Body temperature 2020-03-21 [...] University of Arterial blood by [place] [email or web address] birdie Pulse oximetry Branch Body height 2020-03-05 [...] 96 /min University of Arterial blood by [facility] birdie Pulse oximetry Branch Body height 2020-03-01 [...] Branch Heart rate 2020-01-17 21:08:00 88 /min [facility] Body temperature 2020-01-17 21:08:00 36.72 Priyanka [facility] Respiratory rate 2020-01-17 21:08:00 18 /min [facility] Oxygen saturation in 2020-01-17 21:08:00 98 /min [facility] blood by [facility] Pulse oximetry Branch Body height 2020-01-16 06:21:00 172.7 cm [facility] Body weight 2020-01-16 04:35:00 83.462 kg [facility] BMI 2020-01-16 04:35:00 27.98 kg/m2 [facility] Procedures Procedure Date / Time Performing Clinician Source Performed CONSENT/REFUSAL FOR 2022-04-17 03:07:20 Doctor [place], [facility] DIAGNOSIS AND TREATMENT [place] [facility] XR LUMBAR SPINE 2 VW 2022-03-01 14:18:00 Angelika Aguilar [facility] EXTERNAL PROVIDER RECORDS 2021-11-19 06:01:00 Doctor Blaise, [facility] [place] [facility] POCT GLUCOSE (AUTOMATED) 2021-11-02 22:49:00 Aida Shah [facility] POCT GLUCOSE (AUTOMATED) 2021-11-02 17:06:00 Aida Shah [facility] POCT GLUCOSE (AUTOMATED) 2021-11-02 13:30:00 Aida Shah [facility] TROPONIN I 2021-11-02 09:29:00 Alexandra Hdz [facility] BASIC METABOLIC PANEL 2021-11-02 09:29:00 Sridhar Gordon [facility] (NA, K, CL, CO2, GLUCOSE, Medica l Branch BUN, CREATININE, CA) CBC WITH DIFF 2021-11-02 09:29:00 [facility] N-TERMINAL PRO-BNP 2021-11-02 09:29:00 Alexandra Hdz [facility] POCT GLUCOSE (AUTOMATED) 2021-11-02 01:27:00 [place], Aida [facility] POCT GLUCOSE (AUTOMATED) 2021-11-01 17:37:00 [facility] 2021-11-01 13:40:00 [facility] ([facility]OMATED) 2021-11-01 01:10:00 [facility]SE (AUTOMATED) 2021-10-31 22:28:00 [facility] GLUCOSE (AUTOMATED) 2021-10-31 17:29:00 [facility] 2021-10-31 16:25:00 Alexandra Hdz [facility] TRANSTHORACIC ECHO (TTE) 2021-10-31 15:53:00 Alexandra Hdz [facility] COMPLETE W/ CONTRAST [facility] POCT GLUCOSE (AUTOMATED) 2021-10-31 13:39:00 Martha Drake [facility] TROPONIN I 2021-10-31 10:08:00 [facility]OLIC [facility]EL 2021-10-31 10:08:00 [facility] ([facility], K, CL, CO2, GLUCOSE, Medica l Branch BUN, CREATININE, CA) LIPID PANEL ([id number])(TOTAL 2021-10-31 10:08:00 Alexandra Hdz [facility] CHOLESTEROL, [facility] TRIGLYCERIDES, HDL) CBC WITH DIFF 2021-10-31 10:08:00 [facility] URINALYSIS 2021-10-31 10:08:00 [facility] N-TERMINAL PRO-BNP 2021-10-31 10:08:00 Alexandra Hdz [facility] TROPONIN I 2021-10-31 06:17:00 [facility] CHEST 1 VW 2021-10-31 01:30:[address] [facility] LIPASE 2021-10-31 01:25:[address] [facility] TROPONIN I 2021-10-31 01:25:[address] [facility] COMP. METABOLIC PANEL 2021-10-31 01:25:00 Martha Drake [facility] ([id number]) Medical Branch CBC WITH DIFF 2021-10-31 01:25:[address] [facility] GLYCOSYLATED HEMOGLOBIN 2021-10-31 01:25:00 Julio Cesar [facility] (A1C) [facility] PROTHROMBIN TIME / INR 2021-10-31 01:25:00 Martha Drake [facility] ACTIVATED PARTIAL 2021-10-31 01:25:00 Martha Drake [facility] N-TERMINAL PRO-BNP 2021-10-31 01:25:00 Martha Drake [facility] COVID-19 (ID NOW RAPID 2021-10-31 01:25:00 Martha Drake [facility] TESTING) Medical Branch LAB ONLY COVID 2021-10-31 01:25:00 Martha Drake [facility] INTERPRETATION [facility] HB ECG ROUTINE & RHYTHM 2021-10-31 01:20:03 Martha Drake [facility] URINALYSIS 2021-04-25 21:01:00 Nallely Zhao [facility] XR LUMBAR SPINE 2 VW 2021-04-25 18:41:00 Nallely Zhao [facility] XR HIPS 2 VW LEFT 2021-04-25 18:41:00 Nallely Zhao [facility] CONSENT/REFUSAL FOR 2021-04-25 15:43:06 Doctor Unassigned, [facility] DIAGNOSIS AND TREATMENT [place] [facility] CT CERVICAL SPINE WO 2020-06-26 09:35:01 Martha Drake [facility] CONTRAST [facility] CT LUMBAR SPINE WO 2020-06-26 09:35:01 Martha Drake [facility] CONTRAST Medical Branch CT THORACIC SPINE WO 2020-06-26 09:35:01 Martha Drake [facility] CONTRAST [facility] UNILATERAL DUPLEX SCAN OF 2020-05-24 14:53:40 [facility] Medical B ranch XR ANKLE 3+ VW LEFT 2020-05-24 13:22:26 Charanjit Heck [facility] HEPATIC FUNCTION PANEL 2020-05-24 13:13:00 Charanjit Heck [facility] ([id number]) (ALB,T.PRO,BILI Medical Branch T,BU/BC,ALT,AST,ALK PHOS) BASIC METABOLIC PANEL 2020-05-24 13:13:00 Charanjit Heck [facility] (NA, K, CL, CO2, GLUCOSE, Medica l Branch BUN, CREATININE, CA) CBC WITH DIFFERENTIAL 2020-05-24 13:13:00 Charanjit Heck [facility] PROTHROMBIN TIME / INR 2020-05-24 13:13:00 Charanjit Heck [facility] ACTIVATED PARTIAL 2020-05-24 13:13:00 Charanjit Heck [facility] THRMPLAS [facility] NOTICE OF PRIVACY 2020-05-24 11:38:26 Doctor Unassigned, [facility] PRACTICES [place] [facility] [place] CONSENT/REFUSAL FOR 2020-05-24 11:35:52 Doctor Unassrose mary, [facility] DIAGNOSIS AND TREATMENT [place] [facility] [place] POCT GLUCOSE (AUTOMATED) 2020-03-23 22:32:00 Jamel Flores [facility] POCT GLUCOSE (AUTOMATED) 2020-03-23 18:07:00 Jamel Flores [facility] POCT GLUCOSE (AUTOMATED) 2020-03-23 14:57:00 Jamel Flores [facility] ECHO ROUTINE W/DOPPLER 2020-03-23 13:33:[address] [facility] EKG-12 LEAD 2020-03-23 12:56:59 Jamel Flores [place] [facility] MAGNESIUM 2020-03-23 11:15:00 Bod[facility] 2020-03-23 11:15:00 Jerome [facility] BASIC METABOLIC PANEL 2020-03-23 11:15:00 [facility] (NA, K, CL, CO2, GLUCOSE, Medica l Branch BUN, CREATININE, CA) PROTHROMBIN TIME / INR 2020-03-23 11:15:00 Tereza Cano [facility] ACTIVATED PARTIAL 2020-03-23 11:15:00 Jerome [facility] EKG-12 LEAD 2020-03-23 07:51:19 Jamel Flores [facility] MAGNESIUM 2020-03-23 05:55:00 Jerome [facility] TROPONIN I 2020-03-23 05:55:00 Jerome [facility] BASIC METABOLIC PANEL 2020-03-23 05:55:[facility] (NA, K, CL, CO2, GLUCOSE, Medica l Branch BUN, CREATININE, CA) LIPID PANEL ([id number])(TOTAL 2020-03-23 05:55:00 Tereza Cano [facility] CHOLESTEROL, [facility] TRIGLYCERIDES, HDL) PROTHROMBIN TIME / INR 2020-03-23 02:55:00 Sallie Eckert [facility] ACTIVATED PARTIAL 2020-03-23 02:55:00 Babar [facility] XR CHEST 2 VW 2020-03-23 01:52:37 Esteban Singletary [facility] CORONAVIRUS COVID-19 2020-03-23 00:50:00 Esteban Singletary [facility] TESTING [facility] FERRITIN SERUM 2020-03-22 23:36:00 [facility] 2020-03-22 23:36:00 Esteban Singletary [facility] COMP. METABOLIC PANEL 2020-03-22 23:36:00 Esteban Singletary [facility] ([id number]) [facility] IRON PANEL 2020-03-22 23:36:00 Jerome [facility] CBC WITH DIFFERENTIAL 2020-03-22 23:36:00 Esteban Singletary [facility] N-TERMINAL PRO-BNP 2020-03-22 23:36:00 Esteban Singletary [facility] EKG-12 LEAD 2020-03-22 23:08:[address] [facility] EKG-12 LEAD 2020-03-22 23:08:[address] [facility] XR CHEST 1 VW 2020-03-21 20:42:[address] [facility] LACTIC ACID WHOLE BLOOD 2020-03-21 20:38:00 Myles Harry [facility] LIPASE 2020-03-21 20:19:[address] [facility] TROPONIN I 2020-03-21 20:19:[address] [facility] COMP. METABOLIC PANEL 2020-03-21 20:19:00 Myles Harry [facility] [id number] [facility] PROT[facility]OMBIN TIME / INR 2020-03-21 20:19:00 Myles [facility] N-TERMINAL PRO-BNP 2020-03-21 20:19:00 Myles Harry [facility] CORONAVIRUS COVID-19 2020-03-21 20:19:00 Myles Harry [facility] EKG-12 LEAD 2020-03-21 20:11:[address] [facility] POCT GLUCOSE (AUTOMATED) 2020-03-07 20:56:00 Julio Cesar Dr[employer]Healingaz[employer] [facility] POCT GLUCOSE (AUTOMATED) 2020-03-07 15:34:00 Sarah Adorno [employer] [facility] POCT GLUCOSE (AUTOMATED) 2020-03-07 12:56:00 Sarah Adorno [facility] URIC ACID 2020-03-07 10:14:[address] [facility] TROPONIN I 2020-03-07 10:14:00 Lulu Harris o [facility] BASIC METABOLIC PANEL 2020-03-07 10:14:00 Edionwe, [facility] (NA, K, CL, CO2, GLUCOSE, Medica l Branch BUN, CREATININE, CA) CBC WITH DIFFERENTIAL 2020-03-07 10:14:00 Julio Cesar [facility] N-TERMINAL PRO-BNP 2020-03-07 10:14:00 Lulu Harris [facility] POCT GLUCOSE (AUTOMATED) 2020-03-06 21:16:00 Edionrosalio [facility] POCT GLUCOSE (AUTOMATED) 2020-03-06 16:10:00 Edionrosalio [facility] POCT GLUCOSE (AUTOMATED) 2020-03-06 12:38:00 Edconsuelo [facility] TROPONIN I 2020-03-06 08:51:00 [facility]OL[facility]EL 2020-03-06 08:51:00 Edionrosalio [facility] (NA, K, CL, CO2, GLUCOSE, Medica l Branch BUN, CREATININE, CA) CBC WITH DIFFERENTIAL 2020-03-06 08:51:00 Julio Cesar [facility] POCT GLUCOSE (AUTOMATED) 2020-03-06 01:16:00 Edconsuelo [facility] TROPONIN I 2020-03-05 23:25:00 Edconsuelo [facility] POCT GLUCOSE (AUTOMATED) 2020-03-05 21:14:00 Edionrosalio [facility] POCT GLUCOSE (AUTOMATED) 2020-03-05 16:39:00 Edionrosalio [facility] POCT GLUCOSE (AUTOMATED) 2020-03-05 12:47:00 Edionrosalio [facility] TROPONIN I 2020-03-05 09:50:00 [facility] BASIC METABOLIC PANEL 2020-03-05 09:50:00 Edionrosalio [facility] (NA, K, CL, CO2, GLUCOSE, Medica l Branch BUN, CREATININE, CA) CBC WITH DIFFERENTIAL 2020-03-05 09:50:00 Edionrosalio, [facility] EKG-12 LEAD 2020-03-05 00:36:54 [facility] 2020-03-05 00:31:03 Bobo Urrutia [facility] CORONAVIRUS COVID-19 2020-03-05 00:03:00 Charanjit Heck [facility] TESTING [facility] XR CHEST 1 VW 2020-03-04 23:58:59 Charanjit Heck [facility] LIPASE 2020-03-04 23:29:00 Charanjit Heck [facility] TROPONIN I 2020-03-04 23:29:00 Charanjit Heck [facility] HEPATIC FUNCTION PANEL 2020-03-04 23:29:00 Charanjit Heck [facility] ([id number]) (ALB,T.PRO,BILI Medical Branch T,BU/BC,ALT,AST,ALK PHOS) BASIC METABOLIC PANEL 2020-03-04 23:29:00 Charanjit Heck [facility] (NA, K, CL, CO2, GLUCOSE, Medica l Branch BUN, CREATININE, CA) CBC WITH DIFFERENTIAL 2020-03-04 23:29:00 Umang Charanjit [facility] PROTHROMBIN TIME / INR 2020-03-04 23:29:00 Charanjit Heck [facility] ACTIVATED PARTIAL 2020-03-04 23:29:00 [facility] N-TERMINAL PRO-BNP 2020-03-04 23:29:00 Charanjit Heck [facility] EKG-12 LEAD 2020-03-04 23:15:42 Charanjit Heck [facility] EKG-12 LEAD 2020-03-04 23:10:23 Charanjit Heck [facility] EMERGENCY DEPARTMENT 2020-03-04 05:01:00 Doctor Unassigned, [facility] DOCUMENTS [facility] [facility] POCT GLUCOSE (AUTOMATED) 2020-03-02 15:52:00 Lulu Harris [facility] POCT GLUCOSE (AUTOMATED) 2020-03-02 12:39:00 Lulu Harris [facility] MAGNESIUM 2020-03-02 08:57:00 Carolyn [facility] BASIC METABOLIC PANEL 2020-03-02 08:57:00 Caroyln [facility] (NA, K, CL, CO2, GLUCOSE, Medica l Branch BUN, CREATININE, CA) N-TERMINAL PRO-BNP 2020-03-02 08:57:00 Carolyn [facility] POCT GLUCOSE (AUTOMATED) 2020-03-01 20:39:00 Lulu Harris [facility] MAGNESIUM 2020-03-01 08:43:00 Steven [facility] TROPONIN I 2020-03-01 08:43:00 Carolyn [facility] BASIC METABOLIC PANEL 2020-03-01 08:43:00 Steven Lulu [facility] (NA, K, CL, CO2, GLUCOSE, Medica l Branch BUN, CREATININE, CA) CBC WITH DIFFERENTIAL 2020-03-01 08:43:00 Steven Lulu [facility] N-TERMINAL PRO-BNP 2020-03-01 08:43:00 Carolyn [facility] VITAMIN B12, LEVEL 2020-03-01 03:49:00 Carolyn [facility] FOLATE 2020-03-01 03:49:00 Carolyn [facility] SEDIMENTATION RATE 2020-03-01 03:49:00 Carolyn [facility] POCT GLUCOSE (AUTOMATED) 2020-03-01 03:39:00 Lulu Harris [facility] PHOSPHORUS 2020-03-01 02:28:00 Steven [facility] URIC ACID 2020-03-01 02:28:00 Carolyn [facility] TROPONIN I 2020-03-01 02:28:00 Carolyn [facility] HEPATIC FUNCTION PANEL 2020-03-01 02:28:00 Carolyn alek [facility] ([id number]) (ALB,T.PRO,BILI Medical Branch T,BU/BC,ALT,AST,ALK PHOS) PROTHROMBIN TIME / INR 2020-03-01 02:28:00 Ivory Leon [facility] N-TERMINAL PRO-BNP 2020-03-01 02:28:00 Lulu Harris [facility] PROCALCITONIN 2020-03-01 02:28:00 Carolyn [facility] EKG-12 LEAD 2020-03-01 01:54:29 Carolyn [facility] EKG-12 LEAD 2020-02-29 23:16:21 Bobo Urrutia [facility] XR CHEST 1 VW COVID 2020-02-29 23:14:25 Bobo Urrutia [facility] EKG-12 LEAD 2020-02-29 23:13:50 Bobo Urrutia [facility] LACTIC ACID WHOLE BLOOD 2020-02-29 22:21:00 Bobo Urrutia [facility] CORONAVIRUS COVID-19 2020-02-29 22:20:00 Bobo Urrutia [facility] TESTING [facility] CREATINE KINASE 2020-02-29 22:14:00 Carolyn [facility] URIC ACID 2020-02-29 22:14:00 Carolyn [facility] LIPASE 2020-02-29 22:14:00 Bobo Urrutia [facility] MAGNESIUM 2020-02-29 22:14:00 Carolyn [facility] TROPONIN I 2020-02-29 22:14:00 Bobo Urrutia [facility] THYROID STIMULATING 2020-02-29 22:14:00 Carolyn [facility] HORMONE [facility] BASIC METABOLIC PANEL 2020-02-29 22:14:00 Bboo Urrutia [facility] (NA, K, CL, CO2, GLUCOSE, Medica l Branch BUN, CREATININE, CA) CBC WITH DIFFERENTIAL 2020-02-29 22:14:00 Bobo Urrutia [facility] GLYCOSYLATED HEMOGLOBIN 2020-02-29 22:14:00 Carolyn [facility] (A1C) [facility] N-TERMINAL PRO-BNP 2020-02-29 22:14:00 Ivroy Leon [facility] EKG-12 LEAD 2020-02-29 21:59:12 [facility]12 LEAD 2020-02-29 21:48:49 Bobo Urrutia [facility] EMERGENCY DEPARTMENT 2020-02-29 05:01:00 Doctor Unassigned, [facility] DOCUMENTS [facility] [facility] POCT GLUCOSE (AUTOMATED) 2020-01-17 18:15:00 Julio Cesar [facility] TROPONIN I 2020-01-17 16:31:00 Julio Cesar [facility] ACTIVATED PARTIAL 2020-01-17 16:31:00 Carolyn [facility] POCT GLUCOSE (AUTOMATED) 2020-01-17 11:56:00 Julio Cesar [facility] TROPONIN I 2020-01-17 09:52:00 Julio Cesar [facility] BASIC METABOLIC PANEL 2020-01-17 09:52:00 [facility] (NA, K, CL, CO2, GLUCOSE, Medica l Branch BUN, CREATININE, CA) CBC WITH DIFFERENTIAL 2020-01-17 09:52:00 [facility] 2020-01-17 09:52:00 Julio Cesar [facility] POCT GLUCOSE (AUTOMATED) 2020-01-16 23:59:00 Julio Cesar [facility] EKG-12 LEAD 2020-01-16 22:15:50 Julio Cesar [facility] TROPONIN I 2020-01-16 20:04:00 Julio Cesar [facility] ACTIVATED PARTIAL 2020-01-16 20:04:00 Ayo Scruggs [facility] POCT GLUCOSE (AUTOMATED) 2020-01-16 17:05:00 Julio Cesar [facility] POCT GLUCOSE (AUTOMATED) 2020-01-16 13:38:00 Edconsuelo [facility] TROPONIN I 2020-01-16 11:11:00 Julio Cesar [facility] LIPID PANEL ([id number])(TOTAL 2020-01-16 11:11:00 Julio [facility]esarSarah [facility]IG[facility], HDL) ACTIVATED PARTIAL 2020-01-16 11:11:00 Julio Cesar [facility] CRITICAL CARE 2020-01-16 05:48:18 Charanjit Heck [facility] XR CHEST 1 VW 2020-01-16 04:46:44 Charanjit Heck [facility] TROPONIN I 2020-01-16 04:38:00 Charanjit Heck [facility] HEPATIC FUNCTION PANEL 2020-01-16 04:38:00 Charanjit Heck [facility] ([id number]) (ALB,T.PRO,BILI Medical Branch T,BU/BC,ALT,AST,ALK PHOS) BASIC METABOLIC PANEL 2020-01-16 04:38:00 Charanjit Heck [facility] (NA, K, CL, CO2, GLUCOSE, Medica l Branch BUN, CREATININE, CA) CBC WITH DIFFERENTIAL 2020-01-16 04:38:00 Charanjit Heck [facility] GLYCOSYLATED HEMOGLOBIN 2020-01-16 04:38:00 [facility] PROTHROMBIN TIME / INR 2020-01-16 04:38:00 Charanjit Heck [facility] ACTIVATED PARTIAL 2020-01-16 04:38:00 Charanjit Heck [facility] N-TERMINAL PRO-BNP 2020-01-16 04:38:00 Charanjit Heck [facility] EKG-12 LEAD 2020-01-16 04:37:48 Charanjit Heck [facility] EKG-12 LEAD 2020-01-16 04:35:35 Charanjit Heck [facility] AUTHORIZATION FOR RELEASE 2019-07-12 05:01:00 Doctor Unassigned, [facility] [place] [facility] Encounters Start End Encounter Admission Attending Care Care Encounter Source Date/Time Date/Time Type Type Clinicians Facility Department ID 2022-03-06 Outpatient [facility] [id number] [place] 08:51:10 [id number] [facility] 2021-12-16 [facility] [id number] 11:30:00 [facility] 2021-12-16 Outpatient STLMLC STLM [id number] Common 09:19:01 [facility] 2021-12-11 Outpatient Patriceender, STLMLC STLM [id number] Common 14:38:21 Anneliese [facility] 2021-12-11 Outpatient Patriceender, STLMLC [facility] [id number] Common 11:50:18 Anneliese [facility] 2021-09-16 Emergency [facility] [id number] Univers [facility]13 Emergency [facility] [id number] Univers 11:42:[facility] 2021-09-13 Emergency [facility] [id number] Univers 05:40:48 [facility] 2022-04-23 2022-04-23 ambulatory STLMLC [facility] [id number] Common 00:00:00 00:00:00 [facility] 2022-04-16 2022-04-16 Emergency X RAJINDER [facility] ERT [id number] Univers 22:29:00 23:27:00 LUZ [facility] 2022-04-16 2022-04-16 [facility] [id number] Univers 22:29:00 23:27:00 Luz Kumar [place] [id number] i ty [facility] 4.2.7.2.686 [facility] [id number] [facility] 084 Branch 2022-03-05 2022-03-10 Inpatient Renu MURGUIA, [facility] CAR 2110 [facility] 06:12:00 22:30:00 BRODIE 2022-03-01 2022-03-01 Emergency X LAUREN [facility] ERT [id number] Univers 06:52:00 12:04:00 ANGELIKA leon [facility] 2022-03-01 2022-03-01 Emergency [facility] [id number] [facility] 06:52:00 12:04:00 Angelika RAMSEY [id number] [place] [id number] [facility] 084 Branch 2021-12-25 2021-12-25 Inpatient ATTAR, [facility] [id number] [place] 00:00:00 00:00:00 [address] 2021-12-19 2021-12-25 Inpatient LAUREN, [facility] [id number] [place] 00:00:00 00:00:00 JAYSON [address] 2021-12-24 2021-12-24 ambulatory STLMLC STLMLC [id number] Common 00:00:00 00:00:00 [facility] 2021-12-20 2021-12-20 Inpatient ATTAR, [facility] [id number] [place] 00:00:00 00:00:00 M[address]AMMED [address] 2021-12-17 2021-12-17 ambulatory STLMLC STLMLC [id number] Common 00:00:00 00:00:00 [facility] 2021-12-16 2021-12-16 ambulatory STLMLC STLMLC [id number] Common 00:00:00 00:00:00 [facility] 2021-11-19 2021-11-19 Orders Doctor JONES [id number] Univers 00:00:00 00:00:00 Only Unassigned, ASHLEIGH [id number] ity of [place] [facility] 4.2.7.2.686 [place] [phone] [facility] 009 Branch 2021-11-04 2021-11-04 Transition SHAREE Maria [id number] Univers 00:00:00 00:00:00 of Care Supa GREWAL [id number] [place].2.[place] [phone] [facility] 403 Branch 2021-10-302021-11-02 Inpatient X ALYSSA TNCESAR ZEFERINO [id number] Univers 19:14:00 18:15:00 AIDA ity of [facility] 2021-10-30 2021-11-02 [facility] Martha Drake [facility] 1.2.840. 114 [id number] Univers 19:14:00 18:15:00 Encounter Aida Shah [id number] [facility] 4.2.7.2.686 [facility] [id number] [facility] 081 Branch 2021-05-17 2021-05-17 Letter PcpROBERT [id number] Univers 00:00:00 00:00:00 (Out) Patient ASHLEIGH [id number] [facility] 4[place].2.[place] [phone] [facility] 019 Branch 2021-04-25 2021-04-25 Emergency Cece, TRAUMA [id number] Univers 10:43:00 17:38:[address] [facility] [id number] i ty of [place] 4.2.7.[address] [place] [address] [phone] [facility] 014 Branch 2020-06-26 2020-06-26 Emergency [facility] [id number] 03:50:00 06:45:00 Martha Ramsey [id number] [place] 4.2.7.2.686 [place] [phone] [facility] 2020-06-26 2020-06-26 [facility] [id number] [id number] Univers 03:50:00 06:45:00 Martha Ramsey [id number] ity of [place] 4.2.7.2.[address] [place] [address] [phone] [facility] 084 Branch 2020-05-24 2020-05-24 [facility] [id number] 06:40:47 10:54:00 Charanjit Ramsey 350.1.13.10 [place] 4.2.7.2.686 [place] [id number] [facility] 2020-05-24 2020-05-24 Emergency Umang [facility] [id number] Univers 06:40:47 10:54:00 Charanjit Ramsey 350.1.13.10 i ty of [place]2.[place] [phone] [place] 653304 [place] 2020-03-29 2020-03-29 Letter Jamel Flores 1.2.840.114 [id number] 00:00:00 00:00:00 (Out) T [place] [id number] Hospital 4.2.7.2.686 [id number] [facility] 2020-03-29 2020-03-29 Letter Jamel Flores 1.2.840.114 [id number] Univers 00:00:00 00:00:00 (Out) T Ashleigh 350.1.13.10 it y of Hospital 4.2.7.2.686 [place] [id number] [address] 2020-03-26 2020-03-26 Transition Sharee George 1.2.840.114 [id number] 00:00:00 00:00:00 of Care Sherrell Grewal 350.1.13.10 [place] 4.2.7.2.686 [id number] [facility] 2020-03-26 2020-03-26 Transition Sharee George 1.2.840.114 [id number] Univers 00:00:00 00:00:00 of Care Sherrell Grewal 350.1.13.10 it y of [place] [phone] [facility] 403 [place] 2020-03-22 2020-03-23 Emergency Sallie Eckertnie 1.2.840. 114 [id number] Univers 18:02:47 21:55:00 Jamel Flores 350.1.13.10 ity of [facility] 4.2.7.2.686 [place] [phone] [place] 653309 [place] 2020-03-22 2020-03-23 Outpatient X JAMEL FLORES [facility] [id number] Univers 18:02:47 21:55:00 ity of [facility] 2020-03-21 2020-03-21 Emergency Kamryn, [facility] 1.2.840.114 [id number] Univers 15:02:08 17:16:00 Mylesazra Ramsey 350.1.13.10 i ty of [place] [phone] [place] 653304 Branch 2020-03-21 2020-03-21 Emergency X KAMRYN, [facility] ERT [id number] Univers 15:02:08 17:16:00 MYLES ity [facility] 2020-03-13 2020-03-13 Outpatient Raju_P MMG MMG [id number] [place] 05:24:00 05:24:00 0428 [facility] 2020-03-08 2020-03-08 Transition Sharee Cool 1.2.840.114 [id number] Univers 00:00:00 00:00:00 of Care Prema Grewal 350.1.13.10 i ty of [place].7.2.[place] [phone] [address] 2020-03-04 2020-03-07 [facility] Charanjit Heck [facility] 1.2.840.1 [id number] Univers 18:01:05 18:00:00 Encounter Sarah Adorno [place] 350.1.13.10 ity of [place] 4.2.7.2.686 [place] [id number] [place] 653301 Branch 2020-03-04 2020-03-07 Inpatient X JULIO CESAR [facility] ZEFERINO [id number] Univers 18:01:05 18:00:00 SARAH ity of [facility] 2020-03-03 2020-03-03 Transition Sharee Silva 1.2.840.114 [id number] Univers 00:00:00 00:00:00 of Care Isatu Grewal 350.1.13.10 it y of [place]2.7.2.[place] [phone] [address] 2020-02-29 2020-03-02 [facility] Bobo Urrutia [facility] 1.2.840.11 [id number] Univers 16:53:09 12:18:00 Encounter Lulu Harris 350.1.13.10 ity of [place] 4[place].2.[place] [id number] [place] 653301 [place] 2020-02-29 2020-03-02 Inpatient X STEVEN [facility] ZEFERINO [id number] Univers 16:53:09 12:18:00 LULU leon [facility] 2020-02-15 2020-02-15 Outpatient R CHAVA [facility] [id number] Univers 11:30:00 11:30:00 ROSEMARY leon [facility] 2020-02-15 2020-02-15 [facility] 1.2.840.114 [id number] Univers 08:13:42 08:43:42 ne Visit Rosemary Ramsey 350.1.13.10 [place] of [place] [phone] Ca dical nal 220 Branch Building 2020-01-18 2020-01-18 Transition Sharee Harvey 1.2.840.114 [id number] Univers 00:00:00 00:00:00 of Care Ana M Grewal 350.1.13.10 it y of [place] 4[place]2.7.2.[place] [id number] [facility] 403 Branch 2020-01-15 2020-01-17 [facility] Charanjit Heck [facility] 1.2.840.1 [id number] Univers 22:33:37 16:58:00 Encounter Sarah Adorno 350.1.13.10 [place] of [place] [id number] [place] 653301 Branch 2020-01-15 2020-01-17 Outpatient X JULIO CESAR [facility] ZEFERINO [id number] Univers 22:33:37 16:58:00 SARAH leon [facility] 2019-10-07 2019-10-07 Outpatient Ko Gant [id number] Common 10:48:00 10:48:00 [facility] 2019-10-05 2019-10-05 Outpatient Ko Gant [id number] Common 16:06:00 16:06:00 [facility] [address] [facility] 2019-07-27 2019-07-27 Refill TIARA Larsen 1.2.840.114 [id number] Univers 00:00:00 00:00:00 Rosemary Ramsey 350.1.13.10 i ty [place] [phone] Ca dical nal 220 Branch [facility] 2019-07-12 2019-07-12 Out[facility] [id number] Common 16:24:00 16:24:00 [facility] [address] [facility] 2019-07-12 2019-07-12 Orders Doctor JONES 1.2.840.114 [id number] Univers 00:00:00 00:00:00 Only Unassigned, ASHLEIGH 350.1.13.10 ity of [place] [facility] 4.2.7.2.686 [place] [phone] [place] [address] Branch 2019-07-06 2019-07-06 Outpatient [facility] [id number] Common 14:00:00 14:00:00 [facility] [address] [facility] Results Test Description Test Time Test Comments Results Result Comments Source SARS-CoV-2 (COVID-19) RNA [Presence] in Respiratory sp ecimen by 2021-12-20 07:04:48 ERI with probe detection Test Item Value Reference Range Interpretation Comme nts SARS-CoV-2 (COVID-19) RNA [Presence] in Respiratory Not detected No t-Detected specimen by ERI with probe detection (test code = 00977-5) 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 [id number] 22:37:57 Test Item Value Reference Range Interpretation Comments Lab Interpretation (test code = Abnormal 25550-5) [facility] GLUCOSE (AUTOMATED)2021-11-02 17:43:02 Test Item Value Reference Range Interpretation Comments POCT GLU (test code = 3124832567) 264 mg/dL 70-110 H Lab Interpretation (test code = Abnormal 00856-1) [facility] [id number] 15:07:47 Test Item Value Reference Interpretation Comments Range TROPONIN I (test 0.064 ng/mL See_Comment H [Automated code = 0309272888) message] The system which generated this result [...] biotin. Lab Interpretation Abnormal (test code = 37277-4) [facility] [id number] 15:04:26 Test Item Value Reference Range Interpretation Comments NT-proBNP (test code 800 pg/mL See_Comment H [Autom ated = 3663520861) message] The system which generated this result transmitted reference range : <=450. The reference range was not used to interpret this result as normal/abnormal . ALYSSA (test code = ALYSSA) Biotin has been reported to cause a negative bias, interpret results relative to patient's use of biotin. Lab Interpretation Abnormal (test code = 13393-6) [facility] GLUCOSE (AUTOMATED)2021-11-02 13:36:38 Test Item Value Reference Range Interpretation Comments POCT GLU (test code = 7142120422) 185 mg/dL 70-110 H Lab Interpretation (test code = Abnormal 32318-5) [facility] METABOLIC PANEL (NA, K, CL, CO2, GLUCOSE, BUN, CREATININE, CA)2021-11-02 10:26:43 Test Item Value Reference Range Interpretation Comments NA (test code = 136 mmol/L 135-145 4795790666) K (test code = 4.0 mmol/L 3.5-5.0 7797488362) CL (test code = 99 mmol/L 98-108 3247264523) CO2 TOTAL (test code = 27 mmol/L 23-31 7391787805) AGAP (test code = 2-16 5396912631) BUN (test code = 30 mg/dL 7-23 H 2160193095) GLUCOSE (test code = 165 mg/dL 70-110 H 9819578215) CREATININE (test code = 1.42 mg/dL 0.60-1.25 H 8332301581) CALCIUM (test code = 9.5 mg/dL 8.6-10.6 2834489611) eGFR (test code = mL/min/1.73m2 9023731484) ALYSSA (test code = ALYSSA) Association of [...] tests). Lab Interpretation Abnormal (test code = 01775-7) [facility] WITH [id number] 10:01:58 Test Item Value Reference Range Interpretation [...] RDW-SD (test code = 39.8 fL 38.5-51.6 28784-2) RDW-CV (test code = 11.5 % 12.1-15.4 L 788-0) PLT (test code = See_Comment [Automated 777-3) message] The sy stem which generated this result transmitted reference range : 150 - 328 10*3/ ?L. The reference r corey was not used to interpret this result as normal/abnormal . MPV (test code = 10.5 fL 9.8-13.0 51523-0) NRBC/100 WBC (test See_Comment [Automat ed code = 7688357480) message] The system which generated this result transmitted reference range : 0.0 - 10.0 /100 WBCs. The refer ence range was not u sed to interpret th is result as normal/abnormal . NRBC x10^3 (test code <0.01 See_Comment [Auto mated = 7407117603) message] The s ystem which generated this result transmitted reference range : 10*3/?L. The reference range was not used to interpret this result as normal/abnormal . GRAN MAT (NEUT) % 59.3 % (test code = 770-8) IMM GRAN % (test code 0.30 % = 6702253342) LYMPH % (test code = 25.0 % 736-9) MONO % (test code = 10.7 % 5905-5) EOS % (test code = 4.1 % 713-8) BASO % (test code = 0.6 % 706-2) GRAN MAT x10^3(ANC) 4.19 10*3/uL 1.99-6.95 (test code = 8075688985) IMM GRAN x10^3 (test <0.03 0.00-0.06 code = 0870251787) LYMPH x10^3 (test code 1.77 10*3/uL 1.09-3.23 = 731-0) MONO x10^3 (test code 0.76 10*3/uL 0.36-1.02 = 742-7) EOS x10^3 (test code = 0.29 10*3/uL 0.06-0.53 711-2) BASO x10^3 (test code 0.04 10*3/uL 0.01-0.09 = 704-7) Lab Interpretation Abnormal (test code = 46709-4) [facility] GLUCOSE (AUTOMATED)2021-11-02 01:29:56 Test Item Value Reference Range Interpretation Comments POCT GLU (test code = 9573037040) 167 mg/dL 70-110 H Lab Interpretation (test code = Abnormal 04557-1) [facility] GLUCOSE (AUTOMATED)2021-11-01 17:40:19 Test Item Value Reference Range Interpretation Comments POCT GLU (test code = 4837729893) 193 mg/dL 70-110 H Lab Interpretation (test code = Abnormal 03635-8) [facility] GLUCOSE (AUTOMATED)2021-11-01 13:44:28 Test Item Value Reference Range Interpretation Comments POCT GLU (test code = 7619365736) 200 mg/dL 70-110 H Lab Interpretation (test code = Abnormal 42307-2) [facility] GLUCOSE (AUTOMATED)2021-11-01 01:38:43 Test Item Value Reference Range Interpretation Comments POCT GLU (test code = 9438777950) 177 mg/dL 70-110 H Lab Interpretation (test code = Abnormal 30609-8) [facility] GLUCOSE (AUTOMATED)2021-10-31 22:39:43 Test Item Value Reference Range Interpretation Comments POCT GLU (test code = 4822757708) 174 mg/dL 70-110 H Lab Interpretation (test code = Abnormal 81837-8) [facility] GLUCOSE (AUTOMATED)2021-10-31 17:40:22 Test Item Value Reference Range Interpretation Comments POCT GLU (test code = 0468263476) 224 mg/dL 70-110 H Lab Interpretation (test code = Abnormal 08197-1) [facility] [id number] 17:14:58 Test Item Value Reference Interpretation Comments Range TROPONIN I (test 0.080 ng/mL See_Comment H [Automated code = 9669630432) message] The system which generated this result [...] biotin. Lab Interpretation Abnormal (test code = 79321-8) [facility] [id number] 15:14:03 Test Item Value Reference Range Interpretation Comments NT-proBNP (test code 474 pg/mL See_Comment H [Autom ated = 8142550359) message] The system which generated this result transmitted reference range : <=450. The reference range was not used to interpret this result as normal/abnormal . ALYSSA (test code = ALYSSA) Biotin has been reported to cause a negative bias, interpret results relative to patient's use of biotin. Lab Interpretation Abnormal (test code = 26671-9) [facility] CenterLIP[facility] PANEL (90083)(TOTAL CHOLESTEROL, TRIGLYCERIDES, HDL)2021-10-31 15:05:19 Test Item Value Reference Range Interpretation Comments CHOL (test code = 101 mg/dL 120-200 L 5125000841) HDL (test code = 36 mg/dL >40 L 5888786055) HDLC RATIO (test code = See_Comment [Au tomated message] 3580774515) The system [employer] generated this result transmit diamante reference range : <=5.0. The refe rence range was not u sed to interpret th is result as normal/abnormal . TRIG (test code = 143 mg/dL 30-170 4966930569) LDL CHOL (test code = 36 mg/dL See_Comment [Auto mated message] 08969-2) The system [employer] generated this result transmit diamante reference range : <=160. The refe rence range was not u sed to interpret th is result as normal/abnormal . VLDL (test code = 29 mg/dL 5-60 9882817914) Lab Interpretation (test Abnormal code = 46547-8) [facility]2021-10-31 13:44:00 Test Item Value Reference Range Interpretation Comments POCT GLU (test code = 2381156617) 150 mg/dL 70-110 H Lab Interpretation (test code = Abnormal 69526-4) [facility] CenterCB with [id number] 11:13:14 Test Item Value Reference Range Interpretation [...] RDW-SD (test code = 39.9 fL 38.5-51.6 92506-9) RDW-CV (test code = 11.8 % 12.1-15.4 L 788-0) PLT (test code = See_Comment [Automated 777-3) message] The sy stem which generated this result transmitted reference range : 150 - 328 10*3/ ?L. The reference r corey was not used to interpret this result as normal/abnormal . MPV (test code = 11.0 fL 9.8-13.0 12051-3) NRBC/100 WBC (test See_Comment [Automat ed code = 9426553267) message] The system which generated this result transmitted reference range : 0.0 - 10.0 /100 WBCs. The refer ence range was not u sed to interpret th is result as normal/abnormal . NRBC x10^3 (test code <0.01 See_Comment [Auto mated = 6912866722) message] The s ystem which generated this result transmitted reference range : 10*3/?L. The reference range was not used to interpret this result as normal/abnormal . GRAN MAT (NEUT) % 64.3 % (test code = 770-8) IMM GRAN % (test code 0.30 % = 0287303528) LYMPH % (test code = 21.7 % 736-9) MONO % (test code = 10.0 % 5905-5) EOS % (test code = 3.1 % 713-8) BASO % (test code = 0.6 % 706-2) GRAN MAT x10^3(ANC) 4.35 10*3/uL 1.99-6.95 (test code = 9090392539) IMM GRAN x10^3 (test <0.03 0.00-0.06 code = 5701013606) LYMPH x10^3 (test code 1.47 10*3/uL 1.09-3.23 = 731-0) MONO x10^3 (test code 0.68 10*3/uL 0.36-1.02 = 742-7) EOS x10^3 (test code = 0.21 10*3/uL 0.06-0.53 711-2) BASO x10^3 (test code 0.04 10*3/uL 0.01-0.09 = 704-7) Lab Interpretation Abnormal (test code = 79541-8) [id number] 11:09:53 Test Item Value Reference Interpretation Comments Range TROPONIN I (test 0.101 ng/mL See_Comment H [Automated code = 3944426284) message] The system which generated this result [...] biotin. Lab Interpretation Abnormal (test code = 86635-8) [facility] (NA, K, CL, CO2, GLUCOSE, BUN, CREATININE, CA)2021-10-31 10:59:31 Test Item Value Reference Range Interpretation Comments NA (test code = 139 mmol/L 135-145 1135702405) K (test code = 4.1 mmol/L 3.5-5.0 4053772318) CL (test code = 103 mmol/L 98-108 2518802706) CO2 TOTAL (test code = 28 mmol/L 23-31 1501563506) AGAP (test code = 2-16 6952643050) BUN (test code = 43 mg/dL 7-23 H 1226535127) GLUCOSE (test code = 165 mg/dL 70-110 H 0334193848) CREATININE (test code = 1.68 mg/dL 0.60-1.25 H 4325299856) CALCIUM (test code = 9.6 mg/dL 8.6-10.6 1954149461) eGFR (test code = mL/min/1.73m2 6403486731) ALYSSA (test code = ALYSSA) Association of [...] tests). Lab Interpretation Abnormal (test code = 58517-1) [facility] CenterGlycosylated Hemoglobin (A1C)2021-10-31 09:13:40 Test Item Value Reference Range Interpretation Comments HGB A1C (test code = 6.8 % 4.0-5.7 H 4548-4) ALYSSA (test code = ALYSSA) Reference RangesNormal: <5.7%Prediabetes: 5.7 - 6.4%Diabetes: > 6.5% Lab Interpretation (test Abnormal code = 06278-6) [facility] [id number] 06:48:18 Test Item Value Reference Interpretation Comments Range TROPONIN I (test 0.082 ng/mL See_Comment H [Automated code = 3037887220) message] The system which generated this result [...] biotin. Lab Interpretation Abnormal (test code = 68810-3) [facility] [id number] 02:09:48 Test Item Value Reference Interpretation Comments Range TROPONIN I (test 0.067 ng/mL See_Comment H [Automated code = 4420360250) message] The system which generated this result [...] biotin. Lab Interpretation Abnormal (test code = 06058-9) [facility] CenterN-[facility]AL [id number] 02:06:31 Test Item Value Reference Range Interpretation Comments NT-proBNP (test code 318 pg/mL See_Comment [Autom ated = 5468085367) message] The system which generated this result transmitted reference range : <=450. The reference range was not used to interpret this result as normal/abnormal . ALYSSA (test code = ALYSSA) Biotin has been reported to cause a negative bias, interpret results relative to patient's use of biotin. Lab Interpretation Normal (test code = 28548-2) [facility] (97117)2021-10-31 01:58:28 Test Item Value Reference Range Interpretation Comments NA (test code = 137 mmol/L 135-145 8916871817) K (test code = 4.1 mmol/L 3.5-5.0 2363695321) CL (test code = 101 mmol/L 98-108 9807888709) CO2 TOTAL (test code = 26 mmol/L 23-31 2257291547) AGAP (test code = 2-16 3063278106) BUN (test code = 46 mg/dL 7-23 H 2681214729) GLUCOSE (test code = 213 mg/dL 70-110 H 6182087697) CREATININE (test code = 1.96 mg/dL 0.60-1.25 H 1176193963) TOTAL BILI (test code = 0.9 mg/dL 0.1-1.5 6213999542) CALCIUM (test code = 9.7 mg/dL 8.6-10.6 9682867782) T PROTEIN (test code = 7.0 g/dL 6.3-8.2 6266526796) ALBUMIN (test code = 4.3 g/dL 3.5-5.0 6059463904) ALK PHOS (test code = 58 U/L 34-122 8720080683) ALTv (test code = 20 U/L 5-50 1742-6) AST(SGOT) (test code = 27 U/L 13-40 9764164510) eGFR (test code = mL/min/1.73m2 6949562484) ALYSSA (test code = ALYSSA) Association of [...] tests). Lab Interpretation Abnormal (test code = 33702-4) [facility] CenterLIPASE, [id number] 01:57:48 Test Item Value Reference Range Interpretation Comments LIPASE (test code = 2868125629) 330 U/L 0-220 H Lab Interpretation (test code = Abnormal 80489-6) [facility] CenteraPTT2021-12-16 01:55:04 Test Item Value Reference [...] seconds. Lab Interpretation Normal (test code = 33436-0) [facility] CenterPROTHROMBIN TIME / [id number] 01:53:08 Test Item Value Reference Range Interpretation [...] tions. Lab Interpretation (test Normal code = 61217-6) [facility]CB WITH [id number] 01:45:44 Test Item Value Reference Range Interpretation [...] RDW-SD (test code = 39.1 fL 38.5-51.6 87096-0) RDW-CV (test code = 11.6 % 12.1-15.4 L 788-0) PLT (test code = See_Comment [Automated 777-3) message] The sy stem which generated this result transmitted reference range : 150 - 328 10*3/ ?L. The reference r corey was not used to interpret this result as normal/abnormal . MPV (test code = 10.4 fL 9.8-13.0 46711-1) NRBC/100 WBC (test See_Comment [Automat ed code = 0716186600) message] The system which generated this result transmitted reference range : 0.0 - 10.0 /100 WBCs. The refer ence range was not u sed to interpret th is result as normal/abnormal . NRBC x10^3 (test code <0.01 See_Comment [Auto mated = 1256932757) message] The s ystem which generated this result transmitted reference range : 10*3/?L. The reference range was not used to interpret this result as normal/abnormal . GRAN MAT (NEUT) % 62.1 % (test code = 770-8) IMM GRAN % (test code 0.30 % = 9699398675) LYMPH % (test code = 23.4 % 736-9) MONO % (test code = 10.8 % 5905-5) EOS % (test code = 2.9 % 713-8) BASO % (test code = 0.5 % 706-2) GRAN MAT x10^3(ANC) 4.14 10*3/uL 1.99-6.95 (test code = 5578248307) IMM GRAN x10^3 (test <0.03 0.00-0.06 code = 6020332522) LYMPH x10^3 (test code 1.56 10*3/uL 1.09-3.23 = 731-0) MONO x10^3 (test code 0.72 10*3/uL 0.36-1.02 = 742-7) EOS x10^3 (test code = 0.19 10*3/uL 0.06-0.53 711-2) BASO x10^3 (test code 0.03 10*3/uL 0.01-0.09 = 704-7) Lab Interpretation Abnormal (test code = 80919-0) [facility] CenterURINALYSIS2021-06-10 21:15:48 Test Item Value Reference Range Interpretation Comments APPEARANCE (test code = Clear Clear 5518766451) COLOR (test code = Yellow Yellow 0551611899) PH (test code = 4.8-8.0 0073989124) SP GRAVITY (test code = 1.003-1.030 4582257935) GLU U QUAL (test code = 50 mg/dL Normal A 3368232747) BLOOD (test code = Negative Negative INTERFERE NCE FROM 5274817724) ASCORBIC ACID M AY CAUSE FALSE NEG ATIVE RESULT KETONES (test code = Negative Negative 8721568522) PROTEIN (test code = Negative Negative 2887-8) UROBILIN (test code = Normal Normal 0946916075) BILIRUBIN (test code = Negative Negative 7644469647) NITRITE (test code = Negative Negative 2549341224) LEUK JESS (test code = Negative Negative 2240881004) RBC/HPF (test code = See_Comment [Autom ated message] 9739688801) The system [employer] generated this result transmitted ref erence range: 0 - 3 HP F. The reference range was not used to int erpret this result as normal/abnormal . WBC/HPF (test code = See_Comment [Autom ated message] 1052920993) The system [employer] generated this result transmitted ref erence range: 0 - 5 HP F. The reference range was not used to int erpret this result as normal/abnormal . BACTERIA (test code = Negative Negative 3961404252) SQ EPITH (test code = <1 See_Comment [Auto mated message] 1515931298) The system [employer] generated this result transmitted ref erence range: <=2 HPF. The reference range was not used to int erpret this result as normal/abnormal . HYAL CAST (test code = See_Comment [Aut omated message] 4741089719) The system [employer] generated this result transmitted ref erence range: <=2 LPF. The reference range was not used to int erpret this result as normal/abnormal . Lab Interpretation (test Abnormal code = 09172-3) [facility] CenterXR LUMBAR SPINE 2 [id number] 20:30:53 Impression: Postoperative changes. Degenerative changes. No [...] acute fracture or dislocation identified. Atherosclerotic calcifications. [facility], Radiant Results Inft User -04/25/2021 [...] acute bony abnormality identified.End of Report.RL: 39[address] [facility] CenterXR HIPS 2 VW [id number] 20:24:52Impression: Postoperative changes. Degenerative changes. No acute [...] clinicalconcern MRI is available.End of Report.RL: [address] [facility] Metabolic Panel (NA, K, CL, CO2, GLUCOSE, BUN, CREATININE, CA)2020-05-24 14:15:00 Test Item Value Reference Range Interpretation Comments NA (test code = 139 mmol/L 135-145 6053037171) K (test code = 4.1 mmol/L 3.5-5 0071992649) CL (test code = 104 mmol/L 98-108 1838457914) CO2 TOTAL (test code = 26 mmol/L 23-31 2621915408) AGAP (test code = 2-16 2096411198) BUN (test code = 22 mg/dL 7-23 3258136184) GLUCOSE (test code = 203 mg/dL 70-110 H 7938279160) CREATININE (test code = 1.40 mg/dL 0.6-1.25 H 8237264193) CALCIUM (test code = 9.1 mg/dL 8.6-10.6 7281745272) eGFR Calculation mL/min/1.73m2 (Non-) (test code = 4370150608) eGFR Calculation mL/min/1.73m2 () (test code = 4370399871) ALYSSA (test code = ALYSSA) Association of [...] tests). Lab Interpretation Abnormal (test code = 43650-2) [facility] CenterHepatic Function Panel (ALB, T.PRO, BILI T, BU/BC, ALT, AST, ALK PHOS)2020-05-24 13:54:00 Test Item Value Reference Range Interpretation Comments TOTAL BILI (test code = 5802431586) 0.9 mg/dL 0.1-1.1 BILI UNCON (test code = 5506818699) 1.0 mg/dL 0.1-1.1 BILI CONJ (test code = 9577141563) 0.0 mg/dL 0-0.3 T PROTEIN (test code = 4431972508) 7.0 g/dL 6.3-8.2 ALBUMIN (test code = 5281223856) 4.2 g/dL 3.5-5 ALK PHOS (test code = 9106350043) 49 U/L 34-122 ALTv (test code = 1742-6) 17 U/L 5-50 AST(SGOT) (test code = 7090370930) 25 U/L 13-40 Lab Interpretation (test code = Normal 49015-1) [facility] CenteraPTT2020-07-09 13:32:00 Test Item Value Reference [...] seconds. Lab Interpretation Normal (test code = 91681-4) [facility] CenterProthrombin Time (PT) / [id number] 13:30:00 Test Item Value Reference Range Interpretation [...] tions. Lab Interpretation (test Normal code = 49976-1) [facility] CenterCB WITH [id number] 13:27:00 Test Item Value Reference Range Interpretation [...] RDW-SD (test code = 42.6 fL 38.5-51.6 42142-6) RDW-CV (test code = 12.3 % 12.1-15.4 788-0) PLT (test code = See_Comment [Automated 777-3) message] The sy stem which generated this result transmitted reference range : 150 - 328 10*3/ ?L. The reference r corey was not used to interpret this result as normal/abnormal . MPV (test code = 9.9 fL 9.8-13 64112-2) NRBC/100 WBC (test See_Comment [Automat ed code = 7364578738) message] The system which generated this result transmitted reference range : 0.0 - 10.0 /100 WBCs. The refer ence range was not u sed to interpret th is result as normal/abnormal . NRBC x10^3 (test code <0.01 See_Comment [Auto mated = 0817315581) message] The s ystem which generated this result transmitted reference range : 10*3/?L. The reference range was not used to interpret this result as normal/abnormal . GRAN MAT (NEUT) % 55.1 % (test code = 770-8) IMM GRAN % (test code 0.20 % = 8041100776) LYMPH % (test code = 28.8 % 736-9) MONO % (test code = 11.3 % 5905-5) EOS % (test code = 3.5 % 713-8) BASO % (test code = 1.1 % 706-2) GRAN MAT x10^3(ANC) 3.11 10*3/uL 1.99-6.95 (test code = 4585008232) IMM GRAN x10^3 (test <0.03 0-0.06 code = 8129746989) LYMPH x10^3 (test code 1.63 10*3/uL 1.09-3.23 = 731-0) MONO x10^3 (test code 0.64 10*3/uL 0.36-1.02 = 742-7) EOS x10^3 (test code = 0.20 10*3/uL 0.06-0.53 711-2) BASO x10^3 (test code 0.06 10*3/uL 0.01-0.09 = 704-7) Lab Interpretation Abnormal (test code = 70311-4) [facility]XR ANKLE 3+ VW [id number] 13:25:58HISTORY: ?Pain. FINDINGS: AP, lateral, oblique views [...] No acute fracture or dislocation in left ankle.[facility] GLUCOSE (AUTOMATED)2020-03-23 22:34:00 Test Item Value Reference Range Interpretation Comments POCT GLU (test code = 3019650253) 173 mg/dL 70-110 H Lab Interpretation (test code = Abnormal 92311-0) [facility] GLUCOSE (AUTOMATED)2020-03-23 22:34:00 Test Item Value Reference Range Interpretation Comments POCT GLU (test code = 5647397063) 173 mg/dL 70-110 H Lab Interpretation (test code = Abnormal 66298-2) [facility] GLUCOSE (AUTOMATED)2020-03-23 18:12:00 Test Item Value Reference Range Interpretation Comments POCT GLU (test code = 165 mg/dL 70-110 H Notifi ed Provider [id number]) Lab Interpretation (test Abnormal code = 12569-7) [facility] GLUCOSE (AUTOMATED)2020-03-23 18:12:00 Test Item Value Reference Range Interpretation Comments POCT GLU (test code = 165 mg/dL 70-110 H Notifi ed Provider 1072837945) Lab Interpretation (test Abnormal code = 76315-7) [facility] GLUCOSE (AUTOMATED)2020-03-23 15:04:00 Test Item Value Reference Range Interpretation Comments POCT GLU (test code = 114 mg/dL 70-110 H Notifi ed Provider 0903729473) Lab Interpretation (test Abnormal code = 06654-3) [facility] GLUCOSE (AUTOMATED)2020-03-23 15:04:00 Test Item Value Reference Range Interpretation Comments POCT GLU (test code = 114 mg/dL 70-110 H Notifi ed Provider 0906960660) Lab Interpretation (test Abnormal code = 37071-9) [facility] CenterFERRITIN [id number] 13:23:00 Test Item Value Reference Range Interpretation Comments FERRITIN (test code = 139.0 ng/mL 18-464 5825571228) ALYSSA (test code = ALYSSA) Biotin has been reported to cause a negative bias, interpret results relative to patient's use of biotin. Lab Interpretation (test Normal code = 15977-8) [facility] CenterFERRITIN [id number] 13:23:00 Test Item Value Reference Range Interpretation Comments FERRITIN (test code = 139.0 ng/mL 18-464 5301956141) ALYSSA (test code = ALYSSA) Biotin has been reported to cause a negative bias, interpret results relative to patient's use of biotin. Lab Interpretation (test Normal code = 19362-9) [facility] [id number] 12:53:00 Test Item Value Reference Range Interpretation Comments IRON (test code = 0901825623) 87 ug/dL 50-160 TIBC (test code = 4336200039) 385 ug/dL 250-410 % FE SAT (test code = 7338246530) 23 % 20-50 Lab Interpretation (test code = Normal 89985-8) [facility] [id number] 12:53:00 Test Item Value Reference Range Interpretation Comments IRON (test code = 6361629415) 87 ug/dL 50-160 TIBC (test code = 8603921020) 385 ug/dL 250-410 % FE SAT (test code = 7499880250) 23 % 20-50 Lab Interpretation (test code = Normal 59048-0) [facility]eraPTT2020-05-08 12:07:00 Test Item Value Reference Range Interpretation Comments APTT Patient (test code See_Comment [Au tomated message] = 3173-2) The system [employer] generated this result transmitted ref erence range: 26 - 36 Seconds. The reference range was not used to int erpret this result as normal/abnormal . Lab Interpretation (test Abnormal code = 94653-0) [facility]eraPTT2020-05-08 12:07:00 Test Item Value Reference Range Interpretation Comments APTT Patient (test code See_Comment [Au tomated message] = 3173-2) The system [employer] generated this result transmitted ref erence range: 26 - 36 Seconds. The reference range was not used to int erpret this result as normal/abnormal . Lab Interpretation (test Abnormal code = 27462-3) [facility] [id number] 11:57:00 Test Item Value Reference Range Interpretation Comments TROPONIN I (test 0.046 ng/mL See_Comment H [Automated code = 5141524282) message] The system which generated this result [...] ? Lab Interpretation Abnormal (test code = 07830-2) [facility] CenterTR[facility] [id number] 11:57:00 Test Item Value Reference Range Interpretation Comments TROPONIN I (test 0.046 ng/mL See_Comment H [Automated code = 2689962233) message] The system which generated this result [...] ? Lab Interpretation Abnormal (test code = 62727-5) [facility] CenterBASIC METABOLIC PANEL (NA, K, CL, CO2, GLUCOSE, BUN, CREATININE, CA)2020-03-23 11:52:00 Test Item Value Reference Range Interpretation Comments NA (test code = 137 mmol/L 135-145 0675878541) K (test code = 4.1 mmol/L 3.5-5 1725816512) CL (test code = 102 mmol/L 98-108 5313181255) CO2 TOTAL (test code = 26 mmol/L 23-31 8510034664) AGAP (test code = 2-16 0044440374) BUN (test code = 18 mg/dL 7-23 6788619880) GLUCOSE (test code = 119 mg/dL 70-110 H 3212341249) CREATININE (test code = 1.14 mg/dL 0.6-1.25 8906576591) CALCIUM (test code = 9.1 mg/dL 8.6-10.6 9830533243) eGFR Calculation mL/min/1.73m2 (Non-) (test code = 1848916727) eGFR Calculation mL/min/1.73m2 () (test code = 8756831057) ALYSSA (test code = ALYSSA) Association of [...] tests). Lab Interpretation Abnormal (test code = 82418-1) [facility] CenterMAGNESIUM2020-05-08 11:52:00 Test Item Value Reference Range Interpretation Comments MAGNESIUM (test code = 9837362149) 2.2 mg/dL 1.7-2.4 Lab Interpretation (test code = Normal 17326-3) [facility]BA[facility]OLIC [facility] (NA, K, CL, CO2, GLUCOSE, BUN, CREATININE, CA)2020-03-23 11:52:00 Test Item Value Reference Range Interpretation Comments NA (test code = 137 mmol/L 135-145 9374253011) K (test code = 4.1 mmol/L 3.5-5 2711975167) CL (test code = 102 mmol/L 98-108 4172658612) CO2 TOTAL (test code = 26 mmol/L 23-31 5675131743) AGAP (test code = 2-16 1870099368) BUN (test code = 18 mg/dL 7-23 8682546720) GLUCOSE (test code = 119 mg/dL 70-110 H 5125749574) CREATININE (test code = 1.14 mg/dL 0.6-1.25 1420232456) CALCIUM (test code = 9.1 mg/dL 8.6-10.6 1019624361) eGFR Calculation mL/min/1.73m2 (Non-) (test code = 2710279706) eGFR Calculation mL/min/1.73m2 () (test code = 9182010092) ALYSSA (test code = ALYSSA) Association of [...] tests). Lab Interpretation Abnormal (test code = 31968-8) [facility] [facility] 11[facility]52:00 Test Item Value Reference Range Interpretation Comments MAGNESIUM (test code = 2555267964) 2.2 mg/dL 1.7-2.4 Lab Interpretation (test code = Normal 19269-0) [facility] CenterProthrombin Time (PT) / [id number] 11:36:00 Test Item Value Reference Range Interpretation Comments PROTIME PATIENT (test See_Comment [Auto mated message] code = 5964-2) The system [employer] generated this result transmitted ref erence range: 10.1 - 1 2.6 Seconds. The re ference range was not u sed to interpret this result as normal/abnor mal. INR (test code = 6301-6) Nor mal INR <1.1; Warfarin Therap eutic range 2.0 to 3. 0 or 2.5 to 3.5, dep ending upon the indica tions. Lab Interpretation (test Normal code = 05771-1) [facility] CenterProthrombin Time (PT) / [id number] 11:36:00 Test Item Value Reference Range Interpretation Comments PROTIME PATIENT (test See_Comment [Auto mated message] code = 5964-2) The system [employer] generated this result transmitted ref erence range: 10.1 - 1 2.6 Seconds. The re ference range was not u sed to interpret this result as normal/abnor mal. INR (test code = 6301-6) Nor mal INR <1.1; Warfarin Therap eutic range 2.0 to 3. 0 or 2.5 to 3.5, dep ending upon the indica tions. Lab Interpretation (test Normal code = 57346-8) [facility] CenterTROPONIN [id number] 06:38:00 Test Item Value Reference Range Interpretation Comments TROPONIN I (test 0.045 ng/mL See_Comment H [Automated code = 0990158232) message] The system which generated this result [...] ? Lab Interpretation Abnormal (test code = 21914-0) [facility] CenterKARINLEXINGTON MED[facility] CENTERCHRISTOPHER [id number] 06:38:00 Test Item Value Reference Range Interpretation Comments TROPONIN I (test 0.045 ng/mL See_Comment H [Automated code = 5763450364) message] The system which generated this result [...] ? Lab Interpretation Abnormal (test code = 91985-0) [facility] METABOLIC PANEL (NA, K, CL, CO2, GLUCOSE, BUN, CREATININE, CA)2020-03-23 06:29:00 Test Item Value Reference Range Interpretation Comments NA (test code = 137 mmol/L 135-145 0346523707) K (test code = 3.6 mmol/L 3.5-5 1094389038) CL (test code = 101 mmol/L 98-108 8567706134) CO2 TOTAL (test code = 27 mmol/L 23-31 3775846308) AGAP (test code = 2-16 7104892951) BUN (test code = 19 mg/dL 7-23 0793448852) GLUCOSE (test code = 153 mg/dL 70-110 H 9721283551) CREATININE (test code = 1.22 mg/dL 0.6-1.25 4954559509) CALCIUM (test code = 8.9 mg/dL 8.6-10.6 1016835922) eGFR Calculation mL/min/1.73m2 (Non-) (test code = 1669908815) eGFR Calculation mL/min/1.73m2 () (test code = 8073898501) ALYSSA (test code = ALYSSA) Association of [...] tests). Lab Interpretation Abnormal (test code = 44400-1) [facility] CenterMAGNESIUM2020-05-08 06:29:00 Test Item Value Reference Range Interpretation Comments MAGNESIUM (test code = 5923078678) 1.7 mg/dL 1.7-2.4 Lab Interpretation (test code = Normal 66935-6) [facility] CenterLIPID PANEL (21669)(TOTAL CHOLESTEROL, TRIGLYCERIDES, HDL)2020-03-23 06:29:00 Test Item Value Reference Range Interpretation Comments CHOL (test code = 106 mg/dL 120-200 L 5059877895) HDL (test code = 46 mg/dL >40 2484534454) HDLC RATIO (test code = See_Comment [Au tomated message] 6372077085) The system [employer] generated this result transmit diamante reference range : <=5.0. The refe rence range was not u sed to interpret th is result as normal/abnormal . TRIG (test code = 74 mg/dL 30-170 5116540789) LDL CHOL (test code = 45 mg/dL See_Comment [Auto mated message] 58937-9) The system [employer] generated this result transmit diamante reference range : <=160. The refe rence range was not u sed to interpret th is result as normal/abnormal . VLDL (test code = 15 mg/dL 5-60 4480620010) Lab Interpretation (test Abnormal code = 53075-4) [facility]BA[facility] (NA, K, CL, CO2, GLUCOSE, BUN, CREATININE, CA)2020-03-23 06:29:00 Test Item Value Reference Range Interpretation Comments NA (test code = 137 mmol/L 135-145 2652284448) K (test code = 3.6 mmol/L 3.5-5 9540861072) CL (test code = 101 mmol/L 98-108 2728655061) CO2 TOTAL (test code = 27 mmol/L 23-31 3169539850) AGAP (test code = 2-16 2923554353) BUN (test code = 19 mg/dL 7-23 1187285652) GLUCOSE (test code = 153 mg/dL 70-110 H 1289915085) CREATININE (test code = 1.22 mg/dL 0.6-1.25 2344629063) CALCIUM (test code = 8.9 mg/dL 8.6-10.6 4973318589) eGFR Calculation mL/min/1.73m2 (Non-) (test code = 0194970818) eGFR Calculation mL/min/1.73m2 () (test code = 3853138974) ALYSSA (test code = ALYSSA) Association of [...] tests). Lab Interpretation Abnormal (test code = 95133-5) [facility] CenterMAGNESIUM2020-05-08 06:29:00 Test Item Value Reference Range Interpretation Comments MAGNESIUM (test code = 5820449189) 1.7 mg/dL 1.7-2.4 Lab Interpretation (test code = Normal 73613-6) [facility] CenterLIPID PANEL (30433)(TOTAL CHOLESTEROL, TRIGLYCERIDES, HDL)2020-03-23 06:29:00 Test Item Value Reference Range Interpretation Comments CHOL (test code = 106 mg/dL 120-200 L 6064893720) HDL (test code = 46 mg/dL >40 1845436653) HDLC RATIO (test code = See_Comment [Au tomated message] 5142290771) The system [employer] generated this result transmit diamante reference range : <=5.0. The refe rence range was not u sed to interpret th is result as normal/abnormal . TRIG (test code = 74 mg/dL 30-170 2019022668) LDL CHOL (test code = 45 mg/dL See_Comment [Auto mated message] 08770-5) The system [employer] generated this result transmit diamante reference range : <=160. The refe rence range was not u sed to interpret th is result as normal/abnormal . VLDL (test code = 15 mg/dL 5-60 5558845439) Lab Interpretation (test Abnormal code = 36674-0) [facility] CenteraPTT2020-05-08 03:18:00 Test Item Value Reference Range Interpretation Comments APTT Patient (test code = See_Comment [ Automated message] 3173-2) The system [employer] generated this result transmitted ref erence range: 26 - 36 Seconds. The re ference range was not u sed to interpret this result as normal/abnor mal. Lab Interpretation (test Normal code = 73763-7) [facility] CenteraPTT2020-05-08 03:18:00 Test Item Value Reference Range Interpretation Comments APTT Patient (test code = See_Comment [ Automated message] 3173-2) The system [employer] generated this result transmitted ref erence range: 26 - 36 Seconds. The re ference range was not u sed to interpret this result as normal/abnor mal. Lab Interpretation (test Normal code = 94089-4) [facility] CenterPROTHROMBIN TIME / [id number] 03:07:00 Test Item Value Reference Range Interpretation Comments PROTIME PATIENT (test See_Comment [Auto mated message] code = 5964-2) The system [employer] generated this result transmitted ref erence range: 10.1 - 1 2.6 Seconds. The re ference range was not u sed to interpret this result as normal/abnor mal. INR (test code = 6301-6) Nor mal INR <1.1; Warfarin Therap eutic range 2.0 to 3. 0 or 2.5 to 3.5, dep ending upon the indica tions. Lab Interpretation (test Normal code = 53356-4) [facility] CenterPROTHROMBIN TIME / [id number] 03:07:00 Test Item Value Reference Range Interpretation Comments PROTIME PATIENT (test See_Comment [Auto mated message] code = 5964-2) The system [employer] generated this result transmitted ref erence range: 10.1 - 1 2.6 Seconds. The re ference range was not u sed to interpret this result as normal/abnor mal. INR (test code = 6301-6) Nor mal INR <1.1; Warfarin Therap eutic range 2.0 to 3. 0 or 2.5 to 3.5, dep ending upon the indica tions. Lab Interpretation (test Normal code = 48096-0) [facility] CenterXR CHEST 2 [id number] 02:23:32 No acute cardiopulmonary process. Preliminary Report [...] this study and agree with the abovereport.[facility] CenterXR CHEST 2 [id number] 02:23:32 No acute cardiopulmonary process. Preliminary Report Dictated by Resident: Dikr Butler MD., have reviewed this study and [...] is seen. Noacute bony abnormalities are noted. [facility], Radiant Results Inft User [...] this study and agree with the abovereport.[facility] CenterCORONAVIRUS COVID-19 [id number] 01:23:00 Test Item Value Reference Range Interpretation Comments SARS-CoV-2 (test code = Not Detected Not Detected 02304-9) ALYSSA (test code = ALYSSA) ID NOW COVID-19 Assay is an isothermal nucleic acid amplification test intended for the qualitative detection of nucleic acid from SARS-CoV-2 viral RNA in nasopharyngeal (GUNSTOCK REPAIRER) specimens. It is used under Emergency Use [...] indicated. Lab Interpretation Normal (test code = 85211-9) [facility] CenterCORONAVIRUS COVID-19 [id number] 01:23:00 Test Item Value Reference Range Interpretation Comments SARS-CoV-2 (test code = Not Detected Not Detected 81732-7) ALYSSA (test code = ALYSSA) ID NOW COVID-19 Assay is an isothermal nucleic acid amplification test intended for the qualitative detection of nucleic acid from SARS-CoV-2 viral RNA in nasopharyngeal (GUNSTOCK REPAIRER) specimens. It is used under Emergency Use [...] indicated. Lab Interpretation Normal (test code = 71627-6) [facility] CenterN-TERMINAL [id number] 00:12:00 Test Item Value Reference Range Interpretation Comments NT-proBNP (test code 585 pg/mL See_Comment H [Autom ated = 1071597391) message] The system which generated this result transmitted reference range : <=450. The reference range was not used to interpret this result as normal/abnormal . ALYSSA (test code = ALYSSA) Biotin has been reported to cause a negative bias, interpret results relative to patient's use of biotin. Lab Interpretation Abnormal (test code = 11296-3) [facility] [id number] 00:12:00 Test Item Value Reference Range Interpretation Comments TROPONIN I (test 0.030 ng/mL See_Comment [Automated code = 4540441127) message] The system which generated this result [...] ? Lab Interpretation Normal (test code = 40714-7) [facility] CenterN-TERMINAL [id number] 00:12:00 Test Item Value Reference Range Interpretation Comments NT-proBNP (test code 585 pg/mL See_Comment H [Autom ated = 9785152919) message] The system which generated this result transmitted reference range : <=450. The reference range was not used to interpret this result as normal/abnormal . ALYSSA (test code = ALYSSA) Biotin has been reported to cause a negative bias, interpret results relative to patient's use of biotin. Lab Interpretation Abnormal (test code = 54376-8) [facility] [id number] 00:12:00 Test Item Value Reference Range Interpretation Comments TROPONIN I (test 0.030 ng/mL See_Comment [Automated code = 7673723751) message] The system which generated this result [...] ? Lab Interpretation Normal (test code = 16050-7) [facility]. METABOLIC PANEL (98739)2020-03-23 00:03:00 Test Item Value Reference Range Interpretation Comments NA (test code = 138 mmol/L 135-145 9606171014) K (test code = 4.1 mmol/L 3.5-5 6207520868) CL (test code = 103 mmol/L 98-108 8675926846) CO2 TOTAL (test code = 26 mmol/L 23-31 6061096964) AGAP (test code = 2-16 9529023158) BUN (test code = 18 mg/dL 7-23 5109126850) GLUCOSE (test code = 157 mg/dL 70-110 H 1965298361) CREATININE (test code = 1.19 mg/dL 0.6-1.25 9367844051) TOTAL BILI (test code = 1.1 mg/dL 0.1-1.6 9338846706) CALCIUM (test code = 9.2 mg/dL 8.6-10.6 7439131190) T PROTEIN (test code = 6.8 g/dL 6.3-8.2 6932580261) ALBUMIN (test code = 4.0 g/dL 3.5-5 5376462654) ALK PHOS (test code = 51 U/L 34-122 3496018216) ALTv (test code = 16 U/L 5-50 1742-6) AST(SGOT) (test code = 23 U/L 13-40 9628415346) eGFR Calculation mL/min/1.73m2 (Non-) (test code = 5132624905) eGFR Calculation mL/min/1.73m2 () (test code = 6308786419) ALYSSA (test code = ALYSSA) Association of [...] tests). Lab Interpretation Abnormal (test code = 20061-5) [facility] METABOLIC PANEL (16143)2020-03-23 00:03:00 Test Item Value Reference Range Interpretation Comments NA (test code = 138 mmol/L 135-145 1510373799) K (test code = 4.1 mmol/L 3.5-5 0292757300) CL (test code = 103 mmol/L 98-108 9899656068) CO2 TOTAL (test code = 26 mmol/L 23-31 5558872758) AGAP (test code = 2-16 7045965960) BUN (test code = 18 mg/dL 7-23 4983618645) GLUCOSE (test code = 157 mg/dL 70-110 H 8964862564) CREATININE (test code = 1.19 mg/dL 0.6-1.25 7391449860) TOTAL BILI (test code = 1.1 mg/dL 0.1-1.0 1367212299) CALCIUM (test code = 9.2 mg/dL 8.6-10.6 2767893015) T PROTEIN (test code = 6.8 g/dL 6.3-8.2 9416438675) ALBUMIN (test code = 4.0 g/dL 3.5-5 6171421127) ALK PHOS (test code = 51 U/L 34-122 6762484662) ALTv (test code = 16 U/L 5-50 1742-6) AST(SGOT) (test code = 23 U/L 13-40 4274093696) eGFR Calculation mL/min/1.73m2 (Non-) (test code = 3547502397) eGFR Calculation mL/min/1.73m2 () (test code = 4490840022) ALYSSA (test code = ALYSSA) Association of [...] tests). Lab Interpretation Abnormal (test code = 25495-4) [facility] WITH [id number] 23:57:00 Test Item Value Reference Range Interpretation Comments WBC (test code = See_Comment [Automated 3890-2) message] The sy stem which generated this [...] RDW-SD (test code = 49.6 fL 38.5-51.6 76997-5) RDW-CV (test code = 14.6 % 12.1-15.4 788-0) PLT (test code = See_Comment L [Automated 777-3) message] The sy stem which generated this result transmitted reference range : 150 - 328 10*3/ ?L. The reference r corey was not used to interpret this result as normal/abnormal . MPV (test code = 9.9 fL 9.8-13 27383-6) NRBC/100 WBC (test See_Comment [Automat ed code = 7743758122) message] The system which generated this result transmitted reference range : 0.0 - 10.0 /100 WBCs. The refer ence range was not u sed to interpret th is result as normal/abnormal . NRBC x10^3 (test code <0.01 See_Comment [Auto mated = 5612321757) message] The s ystem which generated this result transmitted reference range : 10*3/?L. The reference range was not used to interpret this result as normal/abnormal . GRAN MAT (NEUT) % 55.3 % (test code = 770-8) IMM GRAN % (test code 0.20 % = 8276488364) LYMPH % (test code = 28.3 % 736-9) MONO % (test code = 12.6 % 5905-5) EOS % (test code = 3.1 % 713-8) BASO % (test code = 0.5 % 706-2) GRAN MAT x10^3(ANC) 3.20 10*3/uL 1.99-6.95 (test code = 2614161122) IMM GRAN x10^3 (test <0.03 0-0.06 code = 3314032766) LYMPH x10^3 (test code 1.64 10*3/uL 1.09-3.23 = 731-0) MONO x10^3 (test code 0.73 10*3/uL 0.36-1.02 = 742-7) EOS x10^3 (test code = 0.18 10*3/uL 0.06-0.53 711-2) BASO x10^3 (test code 0.03 10*3/uL 0.01-0.09 = 704-7) Lab Interpretation Abnormal (test code = 09790-0) [facility] WITH [id number] 23:57:00 Test Item Value Reference Range Interpretation [...] RDW-SD (test code = 49.6 fL 38.5-51.6 00182-2) RDW-CV (test code = 14.6 % 12.1-15.4 788-0) PLT (test code = See_Comment L [Automated 777-3) message] The sy stem which generated this result transmitted reference range : 150 - 328 10*3/ ?L. The reference r corey was not used to interpret this result as normal/abnormal . MPV (test code = 9.9 fL 9.8-13 51999-9) NRBC/100 WBC (test See_Comment [Automat ed code = 7294090560) message] The system which generated this result transmitted reference range : 0.0 - 10.0 /100 WBCs. The refer ence range was not u sed to interpret th is result as normal/abnormal . NRBC x10^3 (test code <0.01 See_Comment [Auto mated = 5803598114) message] The s ystem which generated this result transmitted reference range : 10*3/?L. The reference range was not used to interpret this result as normal/abnormal . GRAN MAT (NEUT) % 55.3 % (test code = 770-8) IMM GRAN % (test code 0.20 % = 5309642759) LYMPH % (test code = 28.3 % 736-9) MONO % (test code = 12.6 % 5905-5) EOS % (test code = 3.1 % 713-8) BASO % (test code = 0.5 % 706-2) GRAN MAT x10^3(ANC) 3.20 10*3/uL 1.99-6.95 (test code = 8808393679) IMM GRAN x10^3 (test <0.03 0-0.06 code = 4088127841) LYMPH x10^3 (test code 1.64 10*3/uL 1.09-3.23 = 731-0) MONO x10^3 (test code 0.73 10*3/uL 0.36-1.02 = 742-7) EOS x10^3 (test code = 0.18 10*3/uL 0.06-0.53 711-2) BASO x10^3 (test code 0.03 10*3/uL 0.01-0.09 = 704-7) Lab Interpretation Abnormal (test code = 97472-6) [facility]COR[facility] COVID-19 [id number] 21:48:00 Test Item Value Reference Range Interpretation Comments SARS-CoV-2 (test code = Not Detected Not Detected 27198-7) ALYSSA (test code = ALYSSA) ID NOW COVID-19 Assay is an isothermal nucleic acid amplification test intended for the qualitative detection of nucleic acid from SARS-CoV-2 viral RNA in nasopharyngeal (GUNSTOCK REPAIRER) specimens. It is used under Emergency Use [...] indicated. Lab Interpretation Normal (test code = 67715-6) [facility] CenterTroponin [id number] 21:44:00 Test Item Value Reference Range Interpretation Comments TROPONIN I (test 0.027 ng/mL See_Comment [Automated code = 0024360463) message] The system which generated this result [...] ? Lab Interpretation Normal (test code = 41237-4) [facility] CenterProthrombin Time (PT) / [id number] 21:41:00 Test Item Value Reference Range Interpretation [...] tions. Lab Interpretation (test Normal code = 73313-2) [facility] CenterN-[facility]MINAL [id number] 21:39:00 Test Item Value Reference Range Interpretation Comments NT-proBNP (test code 663 pg/mL See_Comment H [Autom ated = 4371540155) message] The system which generated this result transmitted reference range : <=450. The reference range was not used to interpret this result as normal/abnormal . ALYSSA (test code = ALYSSA) Biotin has been reported to cause a negative bias, interpret results relative to patient's use of biotin. Lab Interpretation Abnormal (test code = 59048-5) [facility]. METABOLIC PANEL (75991)2020-03-21 21:37:00 Test Item Value Reference Range Interpretation Comments NA (test code = 139 mmol/L 135-145 4279259792) K (test code = 4.1 mmol/L 3.5-5 3370046261) CL (test code = 102 mmol/L 98-108 4555439713) CO2 TOTAL (test code = 29 mmol/L 23-31 4173264335) AGAP (test code = 2-16 7700614876) BUN (test code = 18 mg/dL 7-23 5034536555) GLUCOSE (test code = 277 mg/dL 70-110 H 4052422283) CREATININE (test code = 1.23 mg/dL 0.6-1.25 3918836899) TOTAL BILI (test code = 1.3 mg/dL 0.1-1.1 H 7152842232) CALCIUM (test code = 9.8 mg/dL 8.6-10.6 4731575302) T PROTEIN (test code = 7.0 g/dL 6.3-8.2 6409957742) ALBUMIN (test code = 4.2 g/dL 3.5-5 6725869502) ALK PHOS (test code = 50 U/L 34-122 1737450214) ALTv (test code = 15 U/L 5-50 1742-6) AST(SGOT) (test code = 22 U/L 13-40 3122226661) eGFR Calculation mL/min/1.73m2 (Non-) (test code = 1891185332) eGFR Calculation mL/min/1.73m2 () (test code = 6645250513) ALYSSA (test code = ALYSSA) Association of [...] tests). Lab Interpretation Abnormal (test code = 53420-9) [facility] CenterLipase [id number] 21:37:00 Test Item Value Reference Range Interpretation Comments LIPASE (test code = 0645769517) 161 U/L 0-220 Lab Interpretation (test code = Normal 90255-7) [facility] CenterChes 1 [id number] 20:46:31HISTORY: Chest pain. TECHNIQUE: Portable AP view of the chest is obtained. Comparison made with03/04/2020 study. FINDINGS: No acute pneumonia. No pneumothorax or pleural effusion orpulmonary congestion detected. Mild cardiomegaly and intrathecal electrodesin lower thoracic spinal canal noted. Mild thoracolumbar scoliosis noted. CONCLUSIONS: Mild cardiomegaly.[facility], Radiant Results Inft User - 03/21/2020 3:47 PM CDTHISTORY: Chest pain.TECHNIQUE: Portable AP view of the chest is obtained. Comparison made with03/04/2020 study.FINDINGS: No acute pneumonia. No pneumothorax or pleural effusion orpulmonary congestion detected. Mild cardiomegaly and intrathecal electrodesin lower thoracic spinal canal noted. Mild thoracolumbar scoliosis noted.CONCLUSIONS: Mild cardiomegaly. [facility] CenterLaneic Acid Whole [id number] 20:43:00 Test Item Value Reference Range Interpretation Comments LACTIC ACID (test code = 1.91 mmol/L 0.3-2.6 6890206950) [facility] GLUCOSE (AUTOMATED)2020-03-07 20:58:00 Test Item Value Reference Range Interpretation Comments POCT GLU (test code = 8245417989) 216 mg/dL 70-110 H Lab Interpretation (test code = Abnormal 26321-0) [facility] GLUCOSE (AUTOMATED)2020-03-07 16:00:00 Test Item Value Reference Range Interpretation Comments POCT GLU (test code = 0801087026) 168 mg/dL 70-110 H Lab Interpretation (test code = Abnormal 84294-8) [facility] GLUCOSE (AUTOMATED)2020-03-07 13:07:00 Test Item Value Reference Range Interpretation Comments POCT GLU (test code = 6769395572) 148 mg/dL 70-110 H Lab Interpretation (test code = Abnormal 30159-0) [facility] CenterTROPONIN [id number] 11:27:00 Test Item Value Reference Range Interpretation Comments TROPONIN I (test 0.051 ng/mL See_Comment H [Automated code = 2548966812) message] The system which generated this result [...] ? Lab Interpretation Abnormal (test code = 04896-8) [facility] CenterN-TERMINAL [id number] 11:24:00 Test Item Value Reference Range Interpretation Comments NT-proBNP (test code 336 pg/mL See_Comment [Autom ated = 0567958770) message] The system which generated this result transmitted reference range : <=450. The reference range was not used to interpret this result as normal/abnormal . ALYSSA (test code = ALYSSA) Biotin has been reported to cause a negative bias, interpret results relative to patient's use of biotin. Lab Interpretation Normal (test code = 80067-4) [facility] Met[facility] (NA, K, CL, CO2, GLUCOSE, BUN, CREATININE, CA)2020-03-07 11:14:00 Test Item Value Reference Range Interpretation Comments NA (test code = 138 mmol/L 135-145 1680913421) K (test code = 3.8 mmol/L 3.5-5 3851161195) CL (test code = 97 mmol/L 98-108 L 4640913752) CO2 TOTAL (test code = 30 mmol/L 23-31 0708085138) AGAP (test code = 2-16 4009426605) BUN (test code = 36 mg/dL 7-23 H 7504899863) GLUCOSE (test code = 140 mg/dL 70-110 H 0172120666) CREATININE (test code = 1.50 mg/dL 0.6-1.25 H 9434125679) CALCIUM (test code = 10.0 mg/dL 8.6-10.6 3522859961) eGFR Calculation mL/min/1.73m2 (Non-) (test code = 0286497111) eGFR Calculation mL/min/1.73m2 () (test code = 5881488433) ALYSSA (test code = ALYSSA) Association of [...] tests). Lab Interpretation Abnormal (test code = 52543-0) [facility] CenterURIC [id number] 11:14:00 Test Item Value Reference Range Interpretation Comments URIC ACID (test code = 6935614269) 5.4 mg/dL 3.6-8 Lab Interpretation (test code = Normal 77235-8) [facility] CenterCB WITH [id number] 10:53:00 Test Item Value Reference Range Interpretation Comments WBC (test code = See_Comment [Automated 1698-2) message] The sy stem which generated this result transmitted reference range : 4.20 - 10.70 10*3/?L. The reference range was not used to interpret this result as normal/abnormal . RBC (test code = See_Comment L [Automated 457-9) message] The sy stem which generated this [...] RDW-SD (test code = 45.1 fL 38.5-51.6 79636-3) RDW-CV (test code = 14.2 % 12.1-15.4 788-0) PLT (test code = See_Comment [Automated 777-3) message] The sy stem which generated this result transmitted reference range : 150 - 328 10*3/ ?L. The reference r corey was not used to interpret this result as normal/abnormal . MPV (test code = 9.8 fL 9.8-13 41786-6) NRBC/100 WBC (test See_Comment [Automat ed code = 3267905400) message] The system which generated this result transmitted reference range : 0.0 - 10.0 /100 WBCs. The refer ence range was not u sed to interpret th is result as normal/abnormal . NRBC x10^3 (test code <0.01 See_Comment [Auto mated = 6642559530) message] The s ystem which generated this result transmitted reference range : 10*3/?L. The reference range was not used to interpret this result as normal/abnormal . GRAN MAT (NEUT) % 51.0 % (test code = 770-8) IMM GRAN % (test code 0.50 % = 0360786248) LYMPH % (test code = 32.0 % 736-9) MONO % (test code = 11.3 % 5905-5) EOS % (test code = 4.3 % 713-8) BASO % (test code = 0.9 % 706-2) GRAN MAT x10^3(ANC) 2.85 10*3/uL 1.99-6.95 (test code = 2995596382) IMM GRAN x10^3 (test 0.03 10*3/uL 0-0.06 code = 6127589668) LYMPH x10^3 (test code 1.79 10*3/uL 1.09-3.23 = 731-0) MONO x10^3 (test code 0.63 10*3/uL 0.36-1.02 = 742-7) EOS x10^3 (test code = 0.24 10*3/uL 0.06-0.53 711-2) BASO x10^3 (test code 0.05 10*3/uL 0.01-0.09 = 704-7) Lab Interpretation Abnormal (test code = 38392-6) [facility] GLUCOSE (AUTOMATED)2020-03-06 22:46:00 Test Item Value Reference Range Interpretation Comments POCT GLU (test code = 5628901808) 209 mg/dL 70-110 H Lab Interpretation (test code = Abnormal 27467-9) [facility] GLUCOSE (AUTOMATED)2020-03-06 16:23:00 Test Item Value Reference Range Interpretation Comments POCT GLU (test code = 9619306441) 254 mg/dL 70-110 H Lab Interpretation (test code = Abnormal 94528-8) [facility] GLUCOSE (AUTOMATED)2020-03-06 12:51:00 Test Item Value Reference Range Interpretation Comments POCT GLU (test code = 6807255535) 126 mg/dL 70-110 H Lab Interpretation (test code = Abnormal 94669-7) [facility] [id number] 10:16:00 Test Item Value Reference Range Interpretation Comments TROPONIN I (test 0.056 ng/mL See_Comment H [Automated code = 5589951010) message] The system which generated this result [...] ? Lab Interpretation Abnormal (test code = 95873-4) [facility] (NA, K, CL, CO2, GLUCOSE, BUN, CREATININE, [place])2020-03-06 10:13:00 Test Item Value Reference Range Interpretation Comments NA (test code = 136 mmol/L 135-145 3577877436) K (test code = 4.1 mmol/L 3.5-5 3268457552) CL (test code = 95 mmol/L 98-108 L 1766632324) CO2 TOTAL (test code = 30 mmol/L 23-31 6829498027) AGAP (test code = 2-16 8087394598) BUN (test code = 35 mg/dL 7-23 H 0431721971) GLUCOSE (test code = 174 mg/dL 70-110 H 9644408666) CREATININE (test code = 1.67 mg/dL 0.6-1.25 H 1122894982) CALCIUM (test code = 9.7 mg/dL 8.6-10.6 3263267323) eGFR Calculation mL/min/1.73m2 (Non-) (test code = 8989153527) eGFR Calculation mL/min/1.73m2 () (test code = 9568332790) ALYSSA (test code = ALYSSA) Association of [...] tests). Lab Interpretation Abnormal (test code = 95934-5) [facility] WITH [id number] 09:16:00 Test Item Value Reference Range Interpretation Comments WBC (test code = See_Comment [Automated 6690-2) message] The sy stem which generated this result transmitted reference range : 4.20 - 10.70 10*3/?L. The reference range was not used to interpret this result as normal/abnormal . RBC (test code = See_Comment L [Automated 719-8) message] The sy stem which generated this [...] RDW-SD (test code = 45.6 fL 38.5-51.6 04707-5) RDW-CV (test code = 14.3 % 12.1-15.4 788-0) PLT (test code = See_Comment [Automated 777-3) message] The sy stem which generated this result transmitted reference range : 150 - 328 10*3/ ?L. The reference r corey was not used to interpret this result as normal/abnormal . MPV (test code = 9.8 fL 9.8-13 33634-6) NRBC/100 WBC (test See_Comment [Automat ed code = 2310748600) message] The system which generated this result transmitted reference range : 0.0 - 10.0 /100 WBCs. The refer ence range was not u sed to interpret th is result as normal/abnormal . NRBC x10^3 (test code <0.01 See_Comment [Auto mated = 5676967389) message] The s ystem which generated this result transmitted reference range : 10*3/?L. The reference range was not used to interpret this result as normal/abnormal . GRAN MAT (NEUT) % 56.1 % (test code = 770-8) IMM GRAN % (test code 0.10 % = 1039948974) LYMPH % (test code = 29.7 % 736-9) MONO % (test code = 9.6 % 5905-5) EOS % (test code = 3.8 % 713-8) BASO % (test code = 0.7 % 706-2) GRAN MAT x10^3(ANC) 3.79 10*3/uL 1.99-6.95 (test code = 4320174141) IMM GRAN x10^3 (test <0.03 0-0.06 code = 7974988989) LYMPH x10^3 (test code 2.01 10*3/uL 1.09-3.23 = 731-0) MONO x10^3 (test code 0.65 10*3/uL 0.36-1.02 = 742-7) EOS x10^3 (test code = 0.26 10*3/uL 0.06-0.53 711-2) BASO x10^3 (test code 0.05 10*3/uL 0.01-0.09 = 704-7) Lab Interpretation Abnormal (test code = 53855-6) [facility] GLUCOSE (AUTOMATED)2020-03-06 01:25:00 Test Item Value Reference Range Interpretation Comments POCT GLU (test code = 3330043679) 208 mg/dL 70-110 H Lab Interpretation (test code = Abnormal 52672-7) [facility] CenterGUERONIN [id number] 00:08:00 Test Item Value Reference Range Interpretation Comments TROPONIN I (test 0.047 ng/mL See_Comment H [Automated code = 2433340192) message] The system which generated this result [...] ? Lab Interpretation Abnormal (test code = 00954-9) [facility] GLUCOSE (AUTOMATED)2020-03-05 21:19:00 Test Item Value Reference Range Interpretation Comments POCT GLU (test code = 9561430155) 234 mg/dL 70-110 H Lab Interpretation (test code = Abnormal 91888-0) [facility] GLUCOSE (AUTOMATED)2020-03-05 16:55:00 Test Item Value Reference Range Interpretation Comments POCT GLU (test code = 5724153563) 258 mg/dL 70-110 H Lab Interpretation (test code = Abnormal 93849-0) [facility]2020-03-05 12:59:00 Test Item Value Reference Range Interpretation Comments POCT GLU (test code = 8935066345) 194 mg/dL 70-110 H Lab Interpretation (test code = Abnormal 53866-6) [facility]TR[facility] [id number] 10:54:00 Test Item Value Reference Range Interpretation Comments TROPONIN I (test 0.071 ng/mL See_Comment H [Automated code = 7115032929) message] The system which generated this result [...] ? Lab Interpretation Abnormal (test code = 85482-4) [facility] (NA, K, CL, CO2, GLUCOSE, BUN, CREATININE, [place])2020-03-05 10:43:00 Test Item Value Reference Range Interpretation Comments NA (test code = 139 mmol/L 135-145 5947692552) K (test code = 4.1 mmol/L 3.5-5 1226065246) CL (test code = 101 mmol/L 98-108 7441041922) CO2 TOTAL (test code = 27 mmol/L 23-31 9438171054) AGAP (test code = 2-16 4120028761) BUN (test code = 25 mg/dL 7-23 H 4932314384) GLUCOSE (test code = 243 mg/dL 70-110 H 1223538702) CREATININE (test code = 1.22 mg/dL 0.6-1.25 1558338446) CALCIUM (test code = 9.8 mg/dL 8.6-10.6 7038690464) eGFR Calculation mL/min/1.73m2 (Non-) (test code = 0158023508) eGFR Calculation mL/min/1.73m2 () (test code = 0263192084) ALYSSA (test code = ALYSSA) Association of [...] tests). Lab Interpretation Abnormal (test code = 24325-6) [facility] WITH [id number] 10:23:00 Test Item Value Reference Range Interpretation Comments WBC (test code = See_Comment [Automated message] 6690-2) The system [employer] generated this result transmitted ref erence range: 4.20 - 1 0.70 10*3/?L. The re ference range was not u sed to interpret this result as normal/abnor mal. RBC (test code = See_Comment [Automated message] 789-8) The system [employer] generated this result transmitted ref erence range: [...] RDW-SD (test code 47.8 fL 38.5-51.6 = 96049-1) RDW-CV (test code 14.4 % 12.1-15.4 = 788-0) PLT (test code = See_Comment [Automated message] 777-3) The system [employer] generated this result transmitted ref erence range: 150 - 32 8 10*3/?L. The re ference range was not u sed to interpret this result as normal/abnor mal. MPV (test code = 9.8 fL 9.8-13 78494-8) NRBC/100 WBC (test See_Comment [Automat ed message] code = 6292804034) The syste [employer] which generated this result transmitted ref erence range: 0.0 - 10 .0 /100 WBCs. The refer ence range was not u sed to interpret this result as normal/abnor mal. NRBC x10^3 (test <0.01 See_Comment [Automated message] code = 4270262448) The syste m which generated this result transmitted ref erence range: 10*3/?L. The reference range was not used to interpr et this result as normal/abnormal . GRAN MAT (NEUT) % 48.8 % (test code = 770-8) IMM GRAN % (test 0.20 % code = 8560819346) LYMPH % (test code 34.7 % = 736-9) MONO % (test code 10.8 % = 5905-5) EOS % (test code = 4.9 % 713-8) BASO % (test code 0.6 % = 706-2) GRAN MAT 2.49 10*3/uL 1.99-6.95 x10^3(ANC) (test code = 4840327501) IMM GRAN x10^3 <0.03 0-0.06 (test code = 2773755381) LYMPH x10^3 (test 1.77 10*3/uL 1.09-3.23 code = 731-0) MONO x10^3 (test 0.55 10*3/uL 0.36-1.02 code = 742-7) EOS x10^3 (test 0.25 10*3/uL 0.06-0.53 code = 711-2) BASO x10^3 (test 0.03 10*3/uL 0.01-0.09 code = 704-7) [facility] CenterXR CHEST 1 [id number] 03:06:08 No acute cardiopulmonary process. Unchanged enlargement [...] this study and agree with the abovereport.[facility] CORONAVIRUS COVID-19 [id number] 00:34:00 Test Item Value Reference Range Interpretation Comments SARS-CoV-2 (test code = Not Detected Not Detected 05131-4) ALYSSA (test code = ALYSSA) ID NOW COVID-19 Assay is an isothermal nucleic acid amplification test intended for the qualitative detection of nucleic acid from SARS-CoV-2 viral RNA in nasopharyngeal ([employer]) specimens. It is used under Emergency Use [...] indicated. Lab Interpretation Normal (test code = 81083-0) [facility] CenterTroponin [id number] 00:08:00 Test Item Value Reference Range Interpretation Comments TROPONIN I (test 0.056 ng/mL See_Comment H [Automated code = 5241082510) message] The system which generated this result [...] ? Lab Interpretation Abnormal (test code = 62705-7) [facility] CenterN-TERMINAL [id number] 00:04:00 Test Item Value Reference Range Interpretation Comments NT-proBNP (test code 562 pg/mL See_Comment H [Autom ated = 7827590623) message] The system which generated this result transmitted reference range : <=450. The reference range was not used to interpret this result as normal/abnormal . ALYSSA (test code = ALYSSA) Biotin has been reported to cause a negative bias, interpret results relative to patient's use of biotin. Lab Interpretation Abnormal (test code = 34507-1) [facility] CenterProthrombin Time (PT) / [id number] 23:57:00 Test Item Value Reference Range Interpretation [...] tions. Lab Interpretation (test Normal code = 20702-1) [facility] CenterBasi Metabolic Panel (NA, K, CL, CO2, GLUCOSE, BUN, CREATININE, CA)2020-03-04 23:56:00 Test Item Value Reference Range Interpretation Comments NA (test code = 139 mmol/L 135-145 6962199471) K (test code = 4.1 mmol/L 3.5-5 3850234692) CL (test code = 102 mmol/L 98-108 8833466015) CO2 TOTAL (test code = 29 mmol/L 23-31 8217035608) AGAP (test code = 2-16 6408122641) BUN (test code = 23 mg/dL 7-23 3012860321) GLUCOSE (test code = 193 mg/dL 70-110 H 5860688153) CREATININE (test code = 1.25 mg/dL 0.6-1.25 5114528342) CALCIUM (test code = 9.7 mg/dL 8.6-10.6 5870618817) eGFR Calculation mL/min/1.73m2 (Non-) (test code = 5647227864) eGFR Calculation mL/min/1.73m2 () (test code = 1968026436) ALYSSA (test code = ALYSSA) Association of [...] tests). Lab Interpretation Abnormal (test code = 36329-0) [facility] CenterHepatic Function Panel (ALB, T.PRO, BILI T, BU/BC, ALT, AST, ALK PHOS)2020-03-04 23:56:00 Test Item Value Reference Range Interpretation Comments TOTAL BILI (test code = 2657435842) 1.1 mg/dL 0.1-1.1 BILI UNCON (test code = 4442383696) 1.1 mg/dL 0.1-1.1 BILI CONJ (test code = 2084663844) 0.0 mg/dL 0-0.3 T PROTEIN (test code = 7781655518) 7.1 g/dL 6.3-8.2 ALBUMIN (test code = 1446606363) 4.1 g/dL 3.5-5 ALK PHOS (test code = 6067245422) 61 U/L 34-122 ALTv (test code = 1742-6) 16 U/L 5-50 AST(SGOT) (test code = 1302325754) 23 U/L 13-40 Lab Interpretation (test code = Normal 49450-0) [facility] CenterLipase [id number] 23:56:00 Test Item Value Reference Range Interpretation Comments LIPASE (test code = 4521520775) 149 U/L 0-220 Lab Interpretation (test code = Normal 53418-1) [facility] CenteraPTT2020-04-19 23:56:00 Test Item Value Reference [...] seconds. Lab Interpretation Normal (test code = 08377-2) [facility] CenterCBC WITH [id number] 23:46:00 Test Item Value Reference Range Interpretation [...] RDW-SD (test code = 48.3 fL 38.5-51.6 32968-6) RDW-CV (test code = 14.7 % 12.1-15.4 788-0) PLT (test code = See_Comment [Automated 777-3) message] The sy stem which generated this result transmitted reference range : 150 - 328 10*3/ ?L. The reference r corey was not used to interpret this result as normal/abnormal . MPV (test code = 9.8 fL 9.8-13 97256-4) NRBC/100 WBC (test See_Comment [Automat ed code = 1128593191) message] The system which generated this result transmitted reference range : 0.0 - 10.0 /100 WBCs. The refer ence range was not u sed to interpret th is result as normal/abnormal . NRBC x10^3 (test code <0.01 See_Comment [Auto mated = 4388123656) message] The s ystem which generated this result transmitted reference range : 10*3/?L. The reference range was not used to interpret this result as normal/abnormal . GRAN MAT (NEUT) % 60.1 % (test code = 770-8) IMM GRAN % (test code 0.20 % = 6770598568) LYMPH % (test code = 26.4 % 736-9) MONO % (test code = 9.9 % 5905-5) EOS % (test code = 2.8 % 713-8) BASO % (test code = 0.6 % 706-2) GRAN MAT x10^3(ANC) 3.17 10*3/uL 1.99-6.95 (test code = 4485441676) IMM GRAN x10^3 (test <0.03 0-0.06 code = 7326205177) LYMPH x10^3 (test code 1.39 10*3/uL 1.09-3.23 = 731-0) MONO x10^3 (test code 0.52 10*3/uL 0.36-1.02 = 742-7) EOS x10^3 (test code = 0.15 10*3/uL 0.06-0.53 711-2) BASO x10^3 (test code 0.03 10*3/uL 0.01-0.09 = 704-7) Lab Interpretation Abnormal (test code = 62275-4) [facility] GLUCOSE (AUTOMATED)2020-03-02 16:04:00 Test Item Value Reference Range Interpretation Comments POCT GLU (test code = 3946542481) 214 mg/dL 70-110 H Lab Interpretation (test code = Abnormal 46685-1) [facility] GLUCOSE (AUTOMATED)2020-03-02 16:04:00 Test Item Value Reference Range Interpretation Comments POCT GLU (test code = 0851315804) 271 mg/dL 70-110 H Lab Interpretation (test code = Abnormal 26424-4) [facility] CenterN-TERMINAL [id number] 09:43:00 Test Item Value Reference Range Interpretation Comments NT-proBNP (test code 1670 pg/mL See_Comment H [Autom ated = 4932367912) message] The system which generated this result transmitted reference range : <=450. The reference range was not used to interpret this result as normal/abnormal . ALYSSA (test code = ALYSSA) Biotin has been reported to cause a negative bias, interpret results relative to patient's use of biotin. Lab Interpretation Abnormal (test code = 93258-7) [facility] CenterBA[facility] METABOLIC [facility] (NA, K, CL, CO2, GLUCOSE, BUN, CREATININE, CA)2020-03-02 09:33:00 Test Item Value Reference Range Interpretation Comments NA (test code = 143 mmol/L 135-145 4826759325) K (test code = 3.8 mmol/L 3.5-5 7026939329) CL (test code = 105 mmol/L 98-108 8788845102) CO2 TOTAL (test code = 28 mmol/L 23-31 1762365870) AGAP (test code = 2-16 9715473214) BUN (test code = 19 mg/dL 7-23 0142600686) GLUCOSE (test code = 152 mg/dL 70-110 H 2781905241) CREATININE (test code = 1.18 mg/dL 0.6-1.25 5328071591) CALCIUM (test code = 9.0 mg/dL 8.6-10.6 4739425361) eGFR Calculation mL/min/1.73m2 (Non-) (test code = 6112100395) eGFR Calculation mL/min/1.73m2 () (test code = 0317324767) ALYSSA (test code = ALYSSA) Association of [...] tests). Lab Interpretation Abnormal (test code = 23167-8) [facility]00 Test Item Value Reference Range Interpretation Comments MAGNESIUM (test code = 1875905038) 1.8 mg/dL 1.7-2.4 Lab Interpretation (test code = Normal 09478-1) [facility] CenterPOCT [facility]SE (AUTOMATED)2020-03-01 20:42:00 Test Item Value Reference Range Interpretation Comments POCT GLU (test code = 7178970485) 231 mg/dL 70-110 H Lab Interpretation (test code = Abnormal 66416-3) [facility] CenterVITAMIN B12, [id number] 11:51:00 Test Item Value Reference Range Interpretation Comments VIT B12 (test code = 325 pg/mL 240-930 1396622495) ALYSSA (test code = ALYSSA) Biotin has been reported to cause a positive bias, interpret results relative to patient's use of biotin. Lab Interpretation (test Normal code = 73432-2) [facility] CenterFOLATE2020-04-16 11:49:00 Test Item Value Reference Range Interpretation Comments FOLATE SER (test code = >20.0 3-20 H Slig ht hemolysis 7594520839) Lab Interpretation (test Abnormal code = 71631-8) [facility] CenterPROCALCITONIN2020-04-16 10:49:00 Test Item Value Reference Range Interpretation Comments Procalcitonin (test 3.05 ng/mL <0.07 H code = 3808502091) ALYSSA (test code = ALYSSA) INTERPRETATION OF [...] lung abscess/empyema. For further information please refer to:[email or web address] Lab Interpretation Abnormal (test code = 47659-8) [facility] CenterKARINSANTOS [id number] 09:58:00 Test Item Value Reference Range Interpretation Comments TROPONIN I (test 0.093 ng/mL See_Comment H [Automated code = 2465918851) message] The system which generated this result [...] ? Lab Interpretation Abnormal (test code = 62006-7) [facility] CenterN-TERMINAL [id number] 09:55:00 Test Item Value Reference Range Interpretation Comments NT-proBNP (test code 4450 pg/mL See_Comment H [Autom ated = 0358027584) message] The system which generated this result transmitted reference range : <=450. The reference range was not used to interpret this result as normal/abnormal . ALYSSA (test code = ALYSSA) Biotin has been reported to cause a negative bias, interpret results relative to patient's use of biotin. Lab Interpretation Abnormal (test code = 24806-6) [facility] CenterBasi Metabolic Panel (NA, K, CL, CO2, GLUCOSE, BUN, CREATININE, CA)2020-03-01 09:50:00 Test Item Value Reference Range Interpretation Comments NA (test code = 141 mmol/L 135-145 6303740940) K (test code = 3.5 mmol/L 3.5-5 1786309827) CL (test code = 105 mmol/L 98-108 2751377448) CO2 TOTAL (test code = 26 mmol/L 23-31 9766690558) AGAP (test code = 2-16 3285169107) BUN (test code = 13 mg/dL 7-23 3420072130) GLUCOSE (test code = 219 mg/dL 70-110 H 3135384812) CREATININE (test code = 1.01 mg/dL 0.6-1.25 7537497169) CALCIUM (test code = 8.7 mg/dL 8.6-10.6 5479026450) eGFR Calculation mL/min/1.73m2 (Non-) (test code = 5543842472) eGFR Calculation mL/min/1.73m2 () (test code = 6859077982) ALYSSA (test code = ALYSSA) Association of [...] tests). Lab Interpretation Abnormal (test code = 80385-5) [facility] [id number] 09:50:00 Test Item Value Reference Range Interpretation Comments MAGNESIUM (test code = 6625020739) 1.9 mg/dL 1.7-2.4 Lab Interpretation (test code = Normal 09294-6) [facility] WITH [id number] 09:22:00 Test Item Value Reference Range Interpretation [...] RDW-SD (test code = 47.8 fL 38.5-51.6 73152-5) RDW-CV (test code = 14.8 % 12.1-15.4 788-0) PLT (test code = See_Comment L [Automated 777-3) message] The sy stem which generated this result transmitted reference range : 150 - 328 10*3/ ?L. The reference r corey was not used to interpret this result as normal/abnormal . MPV (test code = 9.9 fL 9.8-13 64368-2) NRBC/100 WBC (test See_Comment [Automat ed code = 3596987259) message] The system which generated this result transmitted reference range : 0.0 - 10.0 /100 WBCs. The refer ence range was not u sed to interpret th is result as normal/abnormal . NRBC x10^3 (test code <0.01 See_Comment [Auto mated = 9916615684) message] The s [employer] which generated this result transmitted reference range : 10*3/?L. The reference range was not used to interpret this result as normal/abnormal . GRAN MAT (NEUT) % 66.0 % (test code = 770-8) IMM GRAN % (test code 0.30 % = 0247203376) LYMPH % (test code = 20.8 % 736-9) MONO % (test code = 9.5 % 5905-5) EOS % (test code = 2.8 % 713-8) BASO % (test code = 0.6 % 706-2) GRAN MAT x10^3(ANC) 4.44 10*3/uL 1.99-6.95 (test code = 7887478582) IMM GRAN x10^3 (test <0.03 0-0.06 code = 2345418809) LYMPH x10^3 (test code 1.40 10*3/uL 1.09-3.23 = 731-0) MONO x10^3 (test code 0.64 10*3/uL 0.36-1.02 = 742-7) EOS x10^3 (test code = 0.19 10*3/uL 0.06-0.53 711-2) BASO x10^3 (test code 0.04 10*3/uL 0.01-0.09 = 704-7) Lab Interpretation Abnormal (test code = 66803-3) [facility] CenterGLYCOSYLATED HEMOGLOBIN (A1C)2020-03-01 06:49:00 Test Item [...] Indicated Lab Interpretation Abnormal (test code = 67488-3) [facility] CenterURIC [id number] 06:25:00 Test Item Value Reference Range Interpretation Comments URIC ACID (test code = 2954376008) 2.3 mg/dL 3.6-8 L Lab Interpretation (test code = Abnormal 66690-3) [facility] CenterSEDIMENTATION [id number] 05:25:00 Test Item Value Reference Range Interpretation Comments ESR (test code = See_Comment H [Automated message] 6219897305) The system [employer] generated this result transmitted ref erence range: 0 - 10 m m/HR. The reference r corey was not used to interpret this result as normal/abnor mal. Lab Interpretation (test Abnormal code = 89928-7) [facility] CenterN-TERMINAL [id number] 04:07:00 Test Item Value Reference Range Interpretation Comments NT-proBNP (test code 4080 pg/mL See_Comment H [Autom ated = 6836287172) message] The system which generated this result transmitted reference range : <=450. The reference range was not used to interpret this result as normal/abnormal . ALYSSA (test code = ALYSSA) Biotin has been reported to cause a negative bias, interpret results relative to patient's use of biotin. Lab Interpretation Abnormal (test code = 33128-3) [facility] CenterPOCT [facility]UCOSE (AUTOMATED)2020-03-01 03:42:00 Test Item Value Reference Range Interpretation Comments POCT GLU (test code = 6292579749) 190 mg/dL 70-110 H Lab Interpretation (test code = Abnormal 36344-1) [facility] CenterTROPONIN [id number] 03:30:00 Test Item Value Reference Range Interpretation Comments TROPONIN I (test 0.098 ng/mL See_Comment H [Automated code = 5593788618) message] The system which generated this result [...] ? Lab Interpretation Abnormal (test code = 69556-5) [facility] CenterHEPATIC FUNCTION PANEL (02936) (ALB,T.PRO,BILI T,BU/BC,ALT,AST,ALK PHOS)2020-03-01 03:24:00 Test Item Value Reference Range Interpretation Comments TOTAL BILI (test code = 9556328818) 2.2 mg/dL 0.1-1.1 H BILI UNCON (test code = 4615887554) 2.0 mg/dL 0.1-1.1 H BILI CONJ (test code = 3582560360) 0.0 mg/dL 0-0.3 T PROTEIN (test code = 9101489862) 6.7 g/dL 6.3-8.2 ALBUMIN (test code = 4471656347) 4.0 g/dL 3.5-5 ALK PHOS (test code = 2889074546) 48 U/L 34-122 ALTv (test code = 1742-6) 18 U/L 5-50 AST(SGOT) (test code = 3863076803) 57 U/L 13-40 H Lab Interpretation (test code = Abnormal 71223-9) [facility] CenterPhosphorus [id number] 03:17:00 Test Item Value Reference Range Interpretation Comments PHOSPHORUS (test code = 3.1 mg/dL 2.5-5 Slig ht hemolysis 6390624631) Lab Interpretation (test Normal code = 80887-3) [facility] CenterPROTHROMBIN TIME / [id number] 03:08:00 Test Item Value Reference Range Interpretation Comments PROTIME PATIENT (test See_Comment [Auto mated message] code = 5964-2) The system [facility] generated this result transmitted ref erence range: 12.0 - 1 4.7 Seconds. The re ference range was not u sed to interpret this result as normal/abnor mal. INR (test code = 6301-6) Nor mal INR <1.1; Warfarin Therap eutic range 2.0 to 3. 0 or 2.5 to 3.5, dep ending upon the indica tions. Lab Interpretation (test Normal code = 57087-2) [facility] CenterCREATINE [id number] 03:01:00 Test Item Value Reference Range Interpretation Comments CK (test code = 1501017870) 68 U/L 33-194 Lab Interpretation (test code = Normal 22555-3) [facility] CenterURIC [id number] 02:41:00 Test Item Value Reference Range Interpretation Comments URIC ACID (test code = 4763115471) 2.3 mg/dL 3.6-8 L Lab Interpretation (test code = Abnormal 05163-0) [facility] CenterTHYROID STIMULATING [id number] 02:26:00 Test Item Value Reference Range Interpretation Comments TSH (test code = See_Comment [Automated message] 7404656348) The system [facility] h generated this result transmitted ref erence range: 0.45 - 4 .70 mIU/L. The refe rence range was not u sed to interpret this result as normal/abnor mal. Lab Interpretation (test Normal code = 49676-4) [facility] CenterN-TERMINAL [id number] 02:04:00 Test Item Value Reference Range Interpretation Comments NT-proBNP (test code 4390 pg/mL See_Comment H [Autom ated = 2781018236) message] The system which generated this result transmitted reference range : <=450. The reference range was not used to interpret this result as normal/abnormal . ALYSSA (test code = ALYSSA) Biotin has been reported to cause a negative bias, interpret results relative to patient's use of biotin. Lab Interpretation Abnormal (test code = 79525-4) [facility] CenterMAGNESIUM2020-04-16 02:01:00 Test Item Value Reference Range Interpretation Comments MAGNESIUM (test code = 7064740520) 1.5 mg/dL 1.7-2.4 L Lab Interpretation (test code = Abnormal 55914-0) [facility] CenterLIPASE2020-04-16 00:22:00 Test Item Value Reference Range Interpretation Comments LIPASE (test code = 3479858662) 68 U/L 0-220 Lab Interpretation (test code = Normal 50898-2) [facility] CenterCORONAVIRUS COVID-19 [id number] 23:42:00 Test Item Value Reference Range Interpretation Comments SARS-CoV-2 (test code = Not Detected Not Detected 97883-0) ALYSSA (test code = ALYSSA) ID NOW COVID-19 Assay is an isothermal nucleic acid amplification test intended for the qualitative detection of nucleic acid from SARS-CoV-2 viral RNA in nasopharyngeal ([employer]) specimens. It is used under Emergency Use [...] indicated. Lab Interpretation Normal (test code = 13773-9) [facility] CenterXR CHEST 1 VW [id number] 23:26:02 No acute intrathoracic abnormality, specifically no radiographic findingsto suggest COVID-19 pneumonia. Disclaimer: Generally, the findings on chest imaging in COVID-19 are notspecific, and overlap with other infections, including influenza, H1N1,SARS and MERS. According to the Centers for Disease Control (CDC) and recent statement ofthe [employer], viral testing remains the [...] Disease Control (CDC) and recent statement ofthe [employer], viral testing remains the only specificmethod of diagnosis. Confirmation with the viral test is required, even ifradiologic findings are suggestive of COVID-[address]. Preliminary Report Dictated by Resident: Radu Boo MD., have reviewed this study and agree with theabovereport.[facility] CenterDomingo [id number] 22:59:00 Test Item Value Reference Range Interpretation Comments TROPONIN I (test 0.071 ng/mL See_Comment H [Automated code = 5658389672) message] The system which generated this result [...] ? Lab Interpretation Abnormal (test code = 04232-6) [facility] Met[facility] (NA, K, CL, CO2, GLUCOSE, BUN, CREATININE, CA)2020-02-29 22:48:00 Test Item Value Reference Range Interpretation Comments NA (test code = 141 mmol/L 135-145 7462328619) K (test code = 3.2 mmol/L 3.5-5 L 7464634445) CL (test code = 104 mmol/L 98-108 8361629490) CO2 TOTAL (test code = 25 mmol/L 23-31 3926468541) AGAP (test code = 2-16 6690690214) BUN (test code = 12 mg/dL 7-23 2548696568) GLUCOSE (test code = 250 mg/dL 70-110 H 7670086351) CREATININE (test code = 1.02 mg/dL 0.6-1.25 9997064701) CALCIUM (test code = 8.9 mg/dL 8.6-10.6 7783442140) eGFR Calculation mL/min/1.73m2 (Non-) (test code = 9970656555) eGFR Calculation mL/min/1.73m2 () (test code = 4453850353) ALYSSA (test code = ALYSSA) Association of [...] tests). Lab Interpretation Abnormal (test code = 01613-6) [facility] WITH [id number] 22:41:00 Test Item Value Reference Range Interpretation [...] RDW-SD (test code = 46.6 fL 38.5-51.6 88038-9) RDW-CV (test code = 14.6 % 12.1-15.4 788-0) PLT (test code = See_Comment [Automated 777-3) message] The sy stem which generated this result transmitted reference range : 150 - 328 10*3/ ?L. The reference r corey was not used to interpret this result as normal/abnormal . MPV (test code = 9.7 fL 9.8-13 L 02486-1) NRBC/100 WBC (test See_Comment [Automat ed code = 1987161999) message] The system which generated this result transmitted reference range : 0.0 - 10.0 /100 WBCs. The refer ence range was not u sed to interpret th is result as normal/abnormal . NRBC x10^3 (test code <0.01 See_Comment [Auto mated = 2428547701) message] The s ystem which generated this result transmitted reference range : 10*3/?L. The reference range was not used to interpret this result as normal/abnormal . GRAN MAT (NEUT) % 68.6 % (test code = 770-8) IMM GRAN % (test code 0.30 % = 0594283742) LYMPH % (test code = 18.6 % 736-9) MONO % (test code = 10.1 % 5905-5) EOS % (test code = 1.8 % 713-8) BASO % (test code = 0.6 % 706-2) GRAN MAT x10^3(ANC) 4.29 10*3/uL 1.99-6.95 (test code = 1406169880) IMM GRAN x10^3 (test <0.03 0-0.06 code = 7092907988) LYMPH x10^3 (test code 1.16 10*3/uL 1.09-3.23 = 731-0) MONO x10^3 (test code 0.63 10*3/uL 0.36-1.02 = 742-7) EOS x10^3 (test code = 0.11 10*3/uL 0.06-0.53 711-2) BASO x10^3 (test code 0.04 10*3/uL 0.01-0.09 = 704-7) Lab Interpretation Abnormal (test code = 75960-4) [facility] CenterLactic Acid Whole [id number] 22:38:00 Test Item Value Reference Range Interpretation Comments LACTIC ACID (test code = 1.88 mmol/L 0.3-2.6 5355934957) [facility] CenterPOCO GLUCOSE (AUTOMATED)2020-01-17 18:18:00 Test Item Value Reference Range Interpretation Comments POCT GLU (test code = 1081812118) 290 mg/dL 70-110 H Lab Interpretation (test code = Abnormal 51193-6) [facility] CenterTROPONIN [id number] 18:01:00 Test Item Value Reference Range Interpretation Comments TROPONIN I (test 0.065 ng/mL See_Comment H [Automated code = 8698636922) message] The system which generated this result [...] ? Lab Interpretation Abnormal (test code = 31363-3) [facility] CenteraPTT2020-03-03 17:10:00 Test Item Value Reference Range Interpretation Comments APTT Patient (test See_Comment H [Automat ed code = 3173-2) message] The system which generated this result transmitted reference range : 23 - 38 Seconds . The reference range was not used to interpr et this result as normal/abnormal . ALYSSA (test code = ALYSAS) The [facility] patient population mean normal value for aPTT is 30 seconds. Lab Interpretation Abnormal (test code = 87661-3) [facility] CenterPOCT GLUCOSE (AUTOMATED)2020-01-17 11:59:00 Test Item Value Reference Range Interpretation Comments POCT GLU (test code = 9611442401) 185 mg/dL 70-110 H Lab Interpretation (test code = Abnormal 90980-1) [facility] CenterTROPONIN [id number] 11:23:00 Test Item Value Reference Range Interpretation Comments TROPONIN I (test 0.073 ng/mL See_Comment H [Automated code = 3194078311) message] The system which generated this result [...] ? Lab Interpretation Abnormal (test code = 09492-4) [facility] CenterBasic Metabolic Panel (NA, K, CL, CO2, GLUCOSE, BUN, CREATININE, CA)2020-01-17 11:16:00 Test Item Value Reference Range Interpretation Comments NA (test code = 136 mmol/L 135-145 7407096529) K (test code = 3.3 mmol/L 3.5-5 L 8194164167) CL (test code = 101 mmol/L 98-108 9731671185) CO2 TOTAL (test code = 26 mmol/L 23-31 4038034160) AGAP (test code = 2-16 2914688982) BUN (test code = 19 mg/dL 7-23 5523551404) GLUCOSE (test code = 227 mg/dL 70-110 H 8634209618) CREATININE (test code = 1.33 mg/dL 0.6-1.25 H 7087330685) CALCIUM (test code = 9.1 mg/dL 8.6-10.6 1250588468) eGFR Calculation mL/min/1.73m2 (Non-) (test code = 5454915947) eGFR Calculation mL/min/1.73m2 () (test code = 0200414301) ALYSSA (test code = ALYSSA) Association of [...] tests). Lab Interpretation Abnormal (test code = 99132-3) [facility] CenteraPTT2020-03-03 11:00:00 Test Item Value Reference [...] seconds. Lab Interpretation Abnormal (test code = 00308-6) [facility] CenterCBC WITH [id number] 10:43:00 Test Item Value Reference Range Interpretation Comments WBC (test code = See_Comment [Automated message] 6690-2) The system [employer] generated this result transmitted ref erence range: 4.20 - 1 0.70 10*3/?L. The re ference range was not u sed to interpret this result as normal/abnor mal. RBC (test code = See_Comment [Automated message] 789-8) The system [employer] generated this result transmitted ref erence range: [...] RDW-SD (test code 41.5 fL 38.5-51.6 = 72517-2) RDW-CV (test code 12.8 % 12.1-15.4 = 788-0) PLT (test code = See_Comment [Automated message] 687-3) The system whic h generated this result transmitted ref erence range: 150 - 32 8 10*3/?L. The re ference range was not u sed to interpret this result as normal/abnor mal. MPV (test code = 10.7 fL 9.8-13 25539-8) NRBC/100 WBC (test See_Comment [Automat ed message] code = 8010795323) The syste m which generated this result transmitted ref erence range: 0.0 - 10 .0 /100 WBCs. The refer ence range was not u sed to interpret this result as normal/abnor mal. NRBC x10^3 (test <0.01 See_Comment [Automated message] code = 7843221307) The syste m which generated this result transmitted ref erence range: 10*3/?L. The reference range was not used to interpr et this result as normal/abnormal . GRAN MAT (NEUT) % 56.1 % (test code = 770-8) IMM GRAN % (test 0.30 % code = 9359606140) LYMPH % (test code 29.5 % = 736-9) MONO % (test code 9.9 % = 5905-5) EOS % (test code = 3.3 % 713-8) BASO % (test code 0.9 % = 706-2) GRAN MAT 3.73 10*3/uL 1.99-6.95 x10^3(ANC) (test code = 9764580327) IMM GRAN x10^3 <0.03 0-0.06 (test code = 7859917549) LYMPH x10^3 (test 1.96 10*3/uL 1.09-3.23 code = 731-0) MONO x10^3 (test 0.66 10*3/uL 0.36-1.02 code = 742-7) EOS x10^3 (test 0.22 10*3/uL 0.06-0.53 code = 711-2) BASO x10^3 (test 0.06 10*3/uL 0.01-0.09 code = 704-7) [facility] GLUCOSE (AUTOMATED)2020-01-17 01:49:00 Test Item Value Reference Range Interpretation Comments POCT GLU (test code = 1211750566) 305 mg/dL 70-110 H Lab Interpretation (test code = Abnormal 11583-2) [facility] CenterPOCT GLUCOSE (AUTOMATED)2020-01-17 00:01:00 Test Item Value Reference Range Interpretation Comments POCT GLU (test code = 4783783427) 271 mg/dL 70-110 H Lab Interpretation (test code = Abnormal 21941-9) [facility] CenteraPTT2020-03-02 22:23:00 Test Item Value Reference [...] seconds. Lab Interpretation Abnormal (test code = 54799-0) [facility] CenterTROPONIN [id number] 21:22:00 Test Item Value Reference Range Interpretation Comments TROPONIN I (test 0.061 ng/mL See_Comment H [Automated code = 3303714204) message] The system which generated this result [...] ? Lab Interpretation Abnormal (test code = 75043-0) [facility] CenterPOCT [facility]UCOSE (AUTOMATED)2020-01-16 17:37:00 Test Item Value Reference Range Interpretation Comments POCT GLU (test code = 0937061304) 271 mg/dL 70-110 H Lab Interpretation (test code = Abnormal 16992-9) [facility] CenteraPTT2020-03-02 12:47:00 Test Item Value Reference [...] seconds. Lab Interpretation Abnormal (test code = 02023-3) [facility] CenterTROPONIN [id number] 12:35:00 Test Item Value Reference Range Interpretation Comments TROPONIN I (test 0.074 ng/mL See_Comment H [Automated code = 3808459670) message] The system which generated this result [...] ? Lab Interpretation Abnormal (test code = 72889-4) [facility] CenterLIPID PANEL (36524)(TOTAL CHOLESTEROL, TRIGLYCERIDES, HDL)2020-01-16 12:23:00 Test Item Value Reference Range Interpretation Comments CHOL (test code = 95 mg/dL 120-200 L 5869633104) HDL (test code = 44 mg/dL >40 2228055248) HDLC RATIO (test code = See_Comment [Au tomated message] 2419517703) The system [employer] generated this result transmitted ref erence range: <=5.0. T he reference range was not used to int erpret this result as normal/abnormal . TRIG (test code = 89 mg/dL 30-170 4736732163) LDL CHOL (test code = 33 mg/dL See_Comment [Auto mated message] 98525-3) The system [employer] generated this result transmitted ref erence range: <=160. T he reference range was not used to int erpret this result as normal/abnormal . VLDL (test code = 18 mg/dL 5-60 5367583288) Lab Interpretation (test Abnormal code = 53730-2) [facility] CenterGlycosylated Hemoglobin (A1C)2020-01-16 09:03:00 Test Item [...] Indicated Lab Interpretation Abnormal (test code = 77059-5) [facility] CenterCritical [id number] 05:48:18Charanjit Heck MD ? ? 01/15/2020 11:48 [...] review of old charts and examination of patientUnCHI St. [facility] HospitalProthrombin Time (PT) / [id number] 05:28:00 Test Item Value Reference Range Interpretation [...] tions. Lab Interpretation (test Normal code = 40051-2) [facility] CenteraPTT2020-03-02 05:27:00 Test Item Value Reference [...] seconds. Lab Interpretation Normal (test code = 53344-3) [facility] CenterTroponin [id number] 05:11:00 Test Item Value Reference Range Interpretation Comments TROPONIN I (test 0.075 ng/mL See_Comment H [Automated code = 6309702712) message] The system which generated this result [...] ? Lab Interpretation Abnormal (test code = 63800-8) [facility] CenterN-TERMINAL [id number] 05:08:00 Test Item Value Reference Range Interpretation Comments NT-proBNP (test code 896 pg/mL See_Comment H [Autom ated = 5214664429) message] The system which generated this result transmitted reference range : <=450. The reference range was not used to interpret this result as normal/abnormal . ALYSSA (test code = ALYSSA) Biotin has been reported to cause a negative bias, interpret results relative to patient's use of biotin. Lab Interpretation Abnormal (test code = 68930-5) [facility] CenterBasi Metabolic Panel (NA, K, CL, CO2, GLUCOSE, BUN, CREATININE, CA)2020-01-16 04:59:00 Test Item Value Reference Range Interpretation Comments NA (test code = 136 mmol/L 135-145 6804015538) K (test code = 4.0 mmol/L 3.5-5 2511275720) CL (test code = 101 mmol/L 98-108 8177221833) CO2 TOTAL (test code = 27 mmol/L 23-31 4058389504) AGAP (test code = 2-16 7646721213) BUN (test code = 17 mg/dL 7-23 8067193346) GLUCOSE (test code = 445 mg/dL 70-110 H 0647134980) CREATININE (test code = 1.29 mg/dL 0.6-1.25 H 3017384330) CALCIUM (test code = 8.8 mg/dL 8.6-10.6 5821270635) eGFR Calculation mL/min/1.73m2 (Non-) (test code = 2692205066) eGFR Calculation mL/min/1.73m2 () (test code = 4983373752) ALYSSA (test code = ALYSSA) Association of [...] tests). Lab Interpretation Abnormal (test code = 52489-6) [facility] CenterHepatic Function Panel (ALB, T.PRO, BILI T, BU/BC, ALT, AST, ALK PHOS)2020-01-16 04:59:00 Test Item Value Reference Range Interpretation Comments TOTAL BILI (test code = 4172757436) 1.3 mg/dL 0.1-1.1 H BILI UNCON (test code = 3624407469) 1.1 mg/dL 0.1-1.1 BILI CONJ (test code = 7716011487) 0.0 mg/dL 0-0.3 T PROTEIN (test code = 6917273572) 6.3 g/dL 6.3-8.2 ALBUMIN (test code = 3718063455) 3.9 g/dL 3.5-5 ALK PHOS (test code = 1839721822) 67 U/L 34-122 ALTv (test code = 1742-6) 15 U/L 5-50 AST(SGOT) (test code = 6571009954) 23 U/L 13-40 Lab Interpretation (test code = Abnormal 81108-7) [facility] 1 [id number] 04:54:13Impression: Moderate cardiomegaly without acute pulmonary process. RL: 460 AFC: [id number] Indication: Chest pain Comparison: None available Findings: Single AP view of the chest. The cardiopericardial silhouette ismoderately enlarged. The lungs are clear bilaterally. The visualized bonythorax is intact. A thoracic neurostimulator device is in place. [facility], Radiant Results Inft User - 01/15/2020 10:55 PM CSTIndication: Chest painComparison: None availableFindings: Single AP view of the chest. The cardiopericardial silhouette ismoderately enlarged. The lungs are clear bilaterally. The visualized bonythorax is intact. A thoracic neurostimulator device is in place.IMPRESSIONImpression:Moderate cardiomegaly without acute pulmonary process.RL: 460AFC: [id number] signed by Esperanza Rosado MD, PhD at 01/15/2020 10:54 PMUnPerkins County Health Services WITH [id number] 04:51:00 Test Item Value Reference Range Interpretation Comments WBC (test code = See_Comment [Automated 4990-2) message] The sy stem which generated this [...] RDW-SD (test code = 40.7 fL 38.5-51.6 12457-2) RDW-CV (test code = 12.8 % 12.1-15.4 788-0) PLT (test code = See_Comment L [Automated 777-3) message] The sy stem which generated this result transmitted reference range : 150 - 328 10*3/ ?L. The reference r corey was not used to interpret this result as normal/abnormal . MPV (test code = 10.6 fL 9.8-13 04058-2) IPF % (test code = 2.8 % 1.2-10.7 Platelet count 7882463149) measured by fluorescence method. NRBC/100 WBC (test See_Comment [Automat ed code = 2190854178) message] The system which generated this result transmitted reference range : 0.0 - 10.0 /100 WBCs. The refer ence range was not u sed to interpret th is result as normal/abnormal . NRBC x10^3 (test code <0.01 See_Comment [Auto mated = 6333963040) message] The s ystem which generated this result transmitted reference range : 10*3/?L. The reference range was not used to interpret this result as normal/abnormal . GRAN MAT (NEUT) % 56.0 % (test code = 770-8) IMM GRAN % (test code 0.20 % = 7918585302) LYMPH % (test code = 30.5 % 736-9) MONO % (test code = 9.6 % 5905-5) EOS % (test code = 2.8 % 713-8) BASO % (test code = 0.9 % 706-2) GRAN MAT x10^3(ANC) 2.98 10*3/uL 1.99-6.95 (test code = 3284822355) IMM GRAN x10^3 (test <0.03 0-0.06 code = 5752382841) LYMPH x10^3 (test code 1.62 10*3/uL 1.09-3.23 = 731-0) MONO x10^3 (test code 0.51 10*3/uL 0.36-1.02 = 742-7) EOS x10^3 (test code = 0.15 10*3/uL 0.06-0.53 711-2) BASO x10^3 (test code 0.05 10*3/uL 0.01-0.09 = 704-7) Lab Interpretation Abnormal (test code = 79321-9) [facility]"
[2022-05-02] MEDS ORDERED: ONDANSETRON 4 MG/2 ML VIAL ONE (11:34)
[2022-05-02] MEDS ORDERED: MORPHINE 4 MG/ML SYR ONE (11:34)
[2022-05-02] MEDS ORDERED: METHYLPREDNISOLONE 125 MG INJ ONE (11:34)
--- NOTE | 2022-05-02 12:48 | RAD REPORT ---
EXAM DESCRIPTION: RAD - Lumbar Spine 3 Views - 05/02/2022 12:38 pm CLINICAL HISTORY: LOWER BACK PAIN COMPARISON: Lumbar Spine 3 Views dated 04/07/2022; Lumbar Spine 3 Views dated 02/25/2022; Lumbar Spine 3 Views dated 12/18/2021 FINDINGS: No acute fracture. Grade 1 anterolisthesis of L4 on L5. Moderate disc height loss at L2-3 and L5-S1. Moderate to advanced degenerative changes are present at T12-L1. Status post L3 through L5 marshal and pedicle screw fusion. Aortic atherosclerosis. Spinal stimulator. Partially imaged thoracolum bar curvature. IMPRESSION: No acute osseous abnormality involving the lumbar spine.
[2022-05-02] MEDS ORDERED: DIAZEPAM 10 MG/2 ML INJ SYRINGE ONE (13:05)
--- NOTE | 2022-05-02 13:37 | ER ---
Nurse's Notes [facility] Name: Demetrius Sarmiento Age: 81 yrs Sex: Male : 1940 Arrival Date: 05/02/2022 Time: 10:51 Bed 19 Private MD: Diagnosis: Low back pain Presentation: 05/02 10:56 Chief complaint: Patient states: back pain moving up his back, worse than it usually iw is. Coronavirus screen: At this time, the client does not indicate any symptoms associated with coronavirus-19. Ebola Screen: Patient negative for fever greater than or equal to 101.5 degrees Fahrenheit, and additional compatible Ebola Virus Disease symptoms Patient denies exposure to infectious person. Patient denies travel to an Ebola-affected area in the 21 days before illness onset. No symptoms or risks identified at this time. Initial Sepsis Screen: Does the patient meet any 2 criteria? No. Patient's initial sepsis screen is negative. Does the patient have a suspected source of infection? No. Patient's initial sepsis screen is negative. Risk Assessment: Do you want to hurt yourself or someone else? Patient reports no desire to harm self or others. Onset of symptoms was May 02, 2022. 10:56 Method Of Arrival: Wheelchair iw 10:56 Acuity: LANCE 3 iw Triage Assessment: 11:20 General: Appears in no apparent distress. Behavior is calm, cooperative. michael Musculoskeletal: Reports Pain is 8 out of 10 on a pain scale. Historical: - Allergies: 10:57 No Known Allergies; iw - PMHx: 10:56 diabetes mellitus; Hypercholesterolemia; Hypertensive disorder; [place]; sciatica; iw - Immunization history:: Adult Immunizations up to date. - Social history:: Smoking status: Patient denies any tobacco usage or history of. - Family history:: not pertinent. Screenin:18 Abuse screen: Denies threats or abuse. Denies injuries from another. Nutritional michael screening: No deficits noted. Tuberculosis screening: No symptoms or risk factors identified. Fall Risk None identified. Assessment: 11:18 Pain: Complains of pain in back, right leg and left leg. Neuro: Level of Consciousness michael is awake, alert, obeys commands, Oriented to person, place, time, situation. Musculoskeletal: Reports pain in back Pain is 8 out of 10 on a pain scale. 16:26 Reassessment: spoke with Tiffany, pt's daughter , will arrange for someone to pick him up iw after she gets off work. Vital Signs: 10:56 BP 150 / 77; Pulse 100; Resp 16; Temp 97.2; Pulse Ox 99% on R/A; iw ED Course: 10:51 Patient arrived in ED. rg4 10:56 Triage completed. iw 10:57 Arm band placed on. iw 10:59 Jose Ferguson MD is Attending Physician. ma2 11:11 Allegra Wallace, HERBIE is Primary Nurse. michael 11:18 Patient has correct armband on for positive identification. Bed in low position. michael 11:18 No provider procedures requiring assistance completed. michael 11:35 Inserted saline lock: 20 gauge in right antecubital area, using aseptic technique. michael 12:40 XRAY Lumbar Spine (3 Views) In Process Unspecified. EDMS 16:33 IV discontinued, intact, Pressure dressing applied. michael Administered Medications: 11:35 Drug: MethylPrednisoLONE 125 mg Route: IVP; Site: right antecubital; michael 11:36 Follow up: Response: No adverse reaction michael 11:36 Drug: morphine 4 mg Route: IVP; Infused Over: 4 mins; Site: right antecubital; michael 11:36 Follow up: Response: No adverse reaction michael 11:36 Drug: Zofran (Ondansetron) 4 mg Route: IVP; Site: right antecubital; michael 11:36 Follow up: Response: No adverse reaction michael 13:02 Drug: Valium (diazepam) 5 mg Route: IVP; Site: right antecubital; michael 13:02 Follow up: Response: No adverse reaction michael Medication: 11:18 VIS not applicable for this client. michael Outcome: 13:37 Discharge ordered by . ma2 16:33 Discharged to home with family. michael 16:33 Condition: good 16:33 Discharge instructions given to patient. 16:34 Patient left the ED. michael Signatures: Dispatcher [employer] EDJanina Burkett RN RN iw Garcia, Rubi rg4 Jose Ferguson MD MD ma2 Au-Stager, Heather, RN RN michael
--- NOTE | 2022-05-02 13:37 | EDPHYS ---
Physician Documentation [facility] Name: Demetrius Sarmiento Age: 81 yrs Sex: Male : 1940 Arrival Date: 05/02/2022 Time: 10:51 Bed 19 Private MD: ED Physician Jose Ferguson HPI: 05/02 13:35 This 81 yrs old Male presents to ER via Wheelchair with complaints of Back Pain, Leg ma2 Pain. 13:35 Chronic low back pain left sciatica, denies any new weakness, no new trauma, no change ma2 in sensation no urinary incontinence or retention no fever no midline pain.. Historical: - Allergies: 10:57 No Known Allergies; iw - PMHx: 10:56 diabetes mellitus; Hypercholesterolemia; Hypertensive disorder; [place]; sciatica; iw - Immunization history:: Adult Immunizations up to date. - Social history:: Smoking status: Patient denies any tobacco usage or history of. - Family history:: not pertinent. ROS: 13:35 Constitutional: Negative for fever, chills, and weight loss. ma2 13:35 All other systems are negative. Exam: 13:35 Constitutional: This is a well developed, well nourished patient who is awake, alert, ma2 and in no acute distress. Chest/axilla: Normal chest wall appearance and motion. Nontender with no deformity. No lesions are appreciated. Cardiovascular: Regular rate and rhythm with a normal S1 and S2. No gallops, murmurs, or rubs. Normal PMI, no JVD. No pulse deficits. Respiratory: Lungs have equal breath sounds bilaterally, clear to auscultation and percussion. No rales, rhonchi or wheezes noted. No increased work of breathing, no retractions or nasal flaring. Abdomen/GI: Soft, non-tender, with normal bowel sounds. No distension or tympany. No guarding or rebound. No evidence of tenderness throughout. Back: No spinal tenderness. No costovertebral tenderness. Full range of motion. Skin: Warm, dry with normal turgor. Normal color with no rashes, no lesions, and no evidence of cellulitis. MS/ Extremity: Pulses equal, no cyanosis. Neurovascular intact. Full, normal range of motion. Neuro: Awake and alert, GCS 15, oriented to person, place, time, and situation. Cranial nerves II-XII grossly intact. Motor strength 5/5 in all extremities. Sensory grossly intact. Cerebellar exam normal. Normal gait. Vital Signs: 10:56 BP 150 / 77; Pulse 100; Resp 16; Temp 97.2; Pulse Ox 99% on R/A; iw MDM: 10:59 Patient medically screened. ma2 13:35 Differential diagnosis: arthritis, Fracture Joint Injury Osteoporosis. Data reviewed: ma2 vital signs, nurses notes. Counseling: I had a detailed discussion with the patient and/or guardian regarding: the historical points, exam findings, and any diagnostic results supporting the discharge/admit diagnosis, the presence of at least one elevated blood pressure reading (>120/80) during this emergency department visit, the need for outpatient follow up. Response to treatment: There is no appreciated change of the patient's symptoms at this time. 05/02 11:14 Order name: XRAY Lumbar Spine (3 Views); Complete Time: 12:51 ma2 Administered Medications: 11:35 Drug: MethylPrednisoLONE 125 mg Route: IVP; Site: right antecubital; michael 11:36 Follow up: Response: No adverse reaction michael 11:36 Drug: morphine 4 mg Route: IVP; Infused Over: 4 mins; Site: right antecubital; michael 11:36 Follow up: Response: No adverse reaction michael 11:36 Drug: Zofran (Ondansetron) 4 mg Route: IVP; Site: right antecubital; michael 11:36 Follow up: Response: No adverse reaction michael 13:02 Drug: Valium (diazepam) 5 mg Route: IVP; Site: right antecubital; michael 13:02 Follow up: Response: No adverse reaction michael Disposition Summary: 05/02/22 13:37 Discharge Ordered Location: Home ma2 Condition: Stable ma2 Diagnosis - Low back pain ma2 Followup: ma2 - With: Private Physician - When: Tomorrow - Reason: If symptoms return, Continuance of care Discharge Instructions: - Discharge Summary Sheet ma2 - Acute Back Pain, Adult ma2 Forms: - Medication Reconciliation Form ma2 - Thank You Letter ma2 - Antibiotic Education ma2 - Prescription Opioid Use ma2 Prescriptions: - Cyclobenzaprine 10 mg Oral Tablet - take 1 tablet by ORAL route every 8 hours As needed; 30 tablet; Refills: 0, ma2 Product Selection Permitted - Diclofenac Sodium 75 mg Oral Tablet Sustained Release - take 1 tablet by ORAL route 2 times per day; 30 tablet; Refills: 0, Product ma2 Selection Permitted - Medrol (Nasir) 4 mg Oral Tablets, Dose Pack - take 1 tablet by ORAL route as directed - follow package instructions; 1 ma2 packet; Refills: 0, Product Selection Permitted Signatures: Dispatcher [employer] Janina Resendiz RN RN iw Alzahri, Mohammad, MD MD [facility] Allegra Wallace RN RN michael
[2022-05-02 16:41] VITALS: BP 150/77; TEMP 97.2; O2SAT 99
== END 2022-05-02 16:34 | disposition home or self-care (01) ==
LOC: ER 10:49
DX: M54.50 Low back pain, unspecified (principal); M54.32 Sciatica, left side
CPT/HCPCS: 72100; 96375; 96374; 99283; J3360; J2930; J2405

== ENCOUNTER 2022-05-14 22:19 | Emergency (ER) | payer OTHER ==
--- NOTE | 2022-05-14 23:56 | ER ---
Nurse's Notes [facility] Name: Demetrius Sarmiento Age: 82 yrs Sex: Male : 1940 Arrival Date: 05/14/2022 Time: 22:20 Bed Waiting Private MD: Diagnosis: Presentation: 05/14 22:29 Chief complaint: Patient states: I brought myself to the ER because I am having back ld1 pain. Upon arrival to ER pt fell in parking lot - skin tear to right forearm. Pt denies hitting head - negative LOC. Coronavirus screen: At this time, the client does not indicate any symptoms associated with coronavirus-19. Ebola Screen: No symptoms or risks identified at this time. Initial Sepsis Screen: Does the patient meet any 2 criteria? No. Patient's initial sepsis screen is negative. Does the patient have a suspected source of infection? No. Patient's initial sepsis screen is negative. Risk Assessment: Do you want to hurt yourself or someone else? Patient reports no desire to harm self or others. Onset of symptoms was May 14, 2022 at 22:31. 22:29 Method Of Arrival: Ambulatory ld1 22:29 Acuity: LANCE 3 ld1 Triage Assessment: 22:31 General: Appears in no apparent distress. comfortable, Behavior is cooperative, ld1 appropriate for age, anxious. Pain: Complains of pain in back and right arm Pain does not radiate. Pain currently is 10 out of 10 on a pain scale. Quality of pain is described as throbbing, Pain began suddenly. EENT: No signs and/or symptoms were reported regarding the EENT system. Neuro: Level of Consciousness is awake, alert, obeys commands, Oriented to person, place, time, situation. Cardiovascular: Capillary refill < 3 seconds Patient's skin is warm and dry. Respiratory: Airway is patent Respiratory effort is even, unlabored. GI: Abdomen is flat, non-distended. : No signs and/or symptoms were reported regarding the genitourinary system. Historical: - Allergies: : No Known Allergies; ld1 - PMHx: :31 diabetes mellitus; Hypercholesterolemia; Hypertensive disorder; [place]; sciatica; ld1 - PSHx: : None; ld1 - Immunization history:: Adult Immunizations up to date, Client reports having NOT received the Covid vaccine. - Social history:: Smoking status: Patient denies any tobacco usage or history of. Patient/guardian denies using alcohol. Vital Signs: 22:29 BP 122 / 75; Pulse 59; Resp 18; Temp 97.6(TE); Pulse Ox 99% on R/A; Weight 79.38 kg; ld1 Height 5 ft. 10 in. (177.80 cm); Pain 10/10; 22:29 Body Mass Index 25.11 (79.38 kg, 177.80 cm) ld1 ED Course: 22:20 Patient arrived in ED. bp1 22:31 Triage completed. ld1 22:31 Arm band placed on right wrist. ld1 Administered Medications: No medications were administered Outcome: 23:55 Patient left the ED. ld1 Signatures: Adrienne De La Fuente bp1 Danica Mckeon, RN RN ld1
[2022-05-15 01:42] VITALS: BP 122/75; TEMP 97.6; O2SAT 99
== END 2022-05-14 23:55 | disposition left against medical advice (07) ==
LOC: ER 22:19
DX: Z02.9 Encounter for administrative examinations, unspecified (principal)

== ENCOUNTER 2022-05-31 21:54 | Inpatient (IN) | payer OTHER ==
[2022-06-01] MEDS ORDERED: ONDANSETRON 4 MG/2 ML VIAL ONE (00:27)
[2022-06-01] MEDS ORDERED: MORPHINE 2 MG/ML SYR ONE ×2 (00:27→20:41)
[2022-06-01 00:37] LABS: Absolute Lymphocytes (CBC) 0.8 K/uL (0.7-4.9); Hematocrit 38.5 % (39.6-49.0); Lymphocytes % 7.9 % (15.3-44.8); MCV 93.8 fL (80-100); MPV 8.2 fL (7.6-11.3)
[2022-06-01 01:06] LABS: Magnesium 2.3 mg/dL (1.8-2.4); Potassium 3.5 mmol/L (3.5-5.1)
[2022-06-01] MEDS ORDERED: INSULIN -REGULAR HUMAN 50 UNIT/0.5 ML ML ONE (01:40)
[2022-06-01] MEDS ORDERED: NA CHLORIDE 0.9% 100 ML ONE (01:41)
[2022-06-01] MEDS ORDERED: NA CHLORIDE 0.9% 500 ML ONE (01:44)
[2022-06-01 01:57] LABS: Troponin High Sensitivity 60.4 pg/mL (<58.9)
[2022-06-01] MEDS ORDERED: LORazepam 2 MG/ML VIAL ONE (02:19)
--- NOTE | 2022-06-01 02:21 | EDPHYS ---
Physician Documentation [facility] Name: Demetrius Sarmiento Age: 82 yrs Sex: Male : 1940 Arrival Date: 05/31/2022 Time: 22:01 Bed 16 Private MD: ED Physician Brett Lema HPI: 05/31 23:55 This 82 yrs old Male presents to ER via EMS with complaints of Hip Pain. cp 23:55 The patient or guardian reports pain. The complaints affect the left hip. cp 23:55 Associated signs and symptoms: Pertinent negatives: abdominal pain, chest pain, cp vomiting, altered mental status. 23:55 Patient observed to be on ground in restroom of ED after reported fall while attempting cp to transfer from wheelchair to toilet. Historical: - Allergies: 22:06 No Known Allergies; bb - Home Meds: 22:06 atorvastatin oral [Active]; cyclobenzaprine Oral [Active]; donepezil oral [Active]; bb Nitrostat SL [Active]; Potassium Chloride Oral [Active]; quetiapine oral [Active]; Trazodone Oral [Active]; - PMHx: 22:06 Alzheimer's disease; CAD; diabetes mellitus; Hypertensive disorder; [place]; sciatica; bb Hypercholesterolemia; - PSHx: 22:06 nephrectomy; nerve stimulator; bb - Social history:: Smoking status: Patient denies any tobacco usage or history of. ROS: 23:57 Constitutional: Negative for body aches, chills, fever, poor PO intake. cp 23:57 Eyes: Negative for injury, pain, redness, and discharge. cp 23:57 Cardiovascular: Negative for chest pain. 23:57 Respiratory: Negative for cough, shortness of breath, wheezing. 23:57 Abdomen/GI: Negative for abdominal pain, vomiting, diarrhea, constipation. 23:57 MS/extremity: Positive for pain, of the left hip, Negative for decreased range of motion, deformity. 23:57 Neuro: Negative for altered mental status. 23:57 All other systems are negative. Exam: 23:59 Constitutional: The patient appears in no acute distress, alert, awake, cp non-diaphoretic, non-toxic, well developed, well nourished. 23:59 Head/Face: Normocephalic, atraumatic. cp 23:59 Eyes: Periorbital structures: appear normal, Pupils: equal, round, and reactive to light and accomodation, Extraocular movements: intact throughout, Conjunctiva: normal, no exudate, no injection, Lids and lashes: appear normal, bilaterally. 23:59 ENT: External ear(s): are unremarkable, Nose: is normal, Mouth: Lips: dry, Oral mucosa: dry, Posterior pharynx: Airway: no evidence of obstruction, patent. 23:59 Neck: C-spine: vertebral tenderness, is not appreciated, crepitus, is not appreciated, ROM/movement: is normal, is supple, without pain, no range of motions limitations, no nuchal rigidity. 23:59 Chest/axilla: Inspection: normal, Palpation: is normal, no crepitus, no tenderness. 23:59 Cardiovascular: Rate: tachycardic, Rhythm: regular, Edema: is not appreciated, JVD: is not appreciated. 23:59 Respiratory: the patient does not display signs of respiratory distress, Respirations: normal, no use of accessory muscles, no retractions, labored breathing, is not present, Breath sounds: are clear throughout, no decreased breath sounds, no stridor, no wheezing. 23:59 Abdomen/GI: Inspection: abdomen appears normal, Palpation: abdomen is soft and non-tender, in all quadrants. 23:59 Back: vertebral tenderness, is not appreciated. 23:59 Musculoskeletal/extremity: Extremities: noted in the left hip: pain, There is no evidence of decreased ROM, deformity. 23:59 Neuro: Orientation: no acute changes, per EMS, Mentation: no acute changes, per EMS. 06/01 00:40 ECG was reviewed by the Attending Physician. cp Vital Signs: 05/31 22:02 BP 113 / 64; Pulse 113; Resp 16 S; Temp 97.6(TE); Pulse Ox 100% on R/A; Pain 9/10; bb 06/01 01:00 BP 105 / 84; Pulse 126; Resp 18; Pulse Ox 100% ; ll3 02:00 BP 122 / 84; Pulse 112; Resp 17; Pulse Ox 100% ; ll3 03:00 BP 120 / 73; Pulse 111; Resp 16; Pulse Ox 100% ; ll3 04:00 BP 107 / 72; Pulse 110; Resp 17; Pulse Ox 100% ; ll3 MDM: 07/16 23:49 Patient medically screened. 06/01 00:00 Differential diagnosis: hip fracture, intertrochanteric fracture, femoral neck cp fracture, femoral shaft fracture. 02:15 Data reviewed: vital signs, nurses notes, lab test result(s), EKG, radiologic studies, cp plain films. 02:15 Test interpretation: by ED physician or midlevel provider: ECG, plain radiologic cp studies. Physician consultation: Tom Newman MD was called at 02:15, was contacted at 02:15, regarding admission, to the ICU, patient's condition. 05/31 23:53 Order name: Basic Metabolic Panel; Complete Time: 01:13 06/01 01:13 Interpretation: Normal except: NA 128; CL 84; ANION GAP 21.5; GLUC 418; BUN 65; CRE cp 2.68; GFR 23; CA 10.5. 05/31 23:53 Order name: CBC with Diff; Complete Time: 01:13 06/01 01:15 Interpretation: Normal except: RBC 4.10; HGB 13.3; HCT 38.5; JE% 83.3; LYM% 7.9. 05/31 23:53 Order name: Magnesium; Complete Time: 01:13 06/01 01:17 Order name: Urine Microscopic Only 06/01 01:17 Order name: Troponin High Sensitivity; Complete Time: 01:57 06/01 01:57 Interpretation: Troponin HS 60.4; Reviewed. 06/01 01:17 Order name: Ketone, Serum; Complete Time: 01:57 05/31 23:53 Order name: XRAY Pelvis 06/01 02:12 Order name: Glucose, Ancillary Testing [facility] 06/01 02:26 Order name: COVID-19 SARS RT PCR (Document "Date of Onset" if Symptomatic) 06/01 03:10 Order name: Urine Dipstick-Ancillary [facility] 06/01 03:20 Order name: Glucose, Ancillary Testing [facility] 06/01 04:07 Order name: Urinalysis [facility] 06/01 04:11 Order name: Urine Culture [facility] 06/01 05:07 Order name: Glucose, Ancillary Testing [facility] 05/31 23:53 Order name: EKG; Complete Time: 23:53 05/31 23:53 Order name: Cardiac monitoring; Complete Time: 00:23 05/31 23:53 Order name: EKG - Nurse/Tech; Complete Time: 00:23 cp 05/31 23:53 Order name: IV Saline Lock; Complete Time: 00:22 05/31 23:53 Order name: Labs collected and sent; Complete Time: 00:22 05/31 23:53 Order name: O2 Per Protocol; Complete Time: 00:22 05/31 23:53 Order name: XRAY Hip LEFT 2 view 06/01 01:14 Order name: Head C Spine Cap Wo Con EDTN 06/01 04:07 Order name: 60g Consistent Carbohydrate (ADA 1800/2000) EDTN 05/31 23:53 Order name: O2 Sat Monitoring; Complete Time: 00:22 06/01 01:17 Order name: Urine Dipstick-Ancillary (obtain specimen); Complete Time: 03:12 06/01 02:22 Order name: Cath; Complete Time: 03:34 cp EC:40 Rate is 106 beats/min. Rhythm is regular. AR interval is normal. QRS interval is cp prolonged at 118 msec. QT interval is normal. T waves are Inverted in lead aVL. Interpreted by me. Reviewed by me. Administered Medications: 00:44 Drug: morphine 2 mg Route: IVP; Infused Over: 4 mins; Site: left antecubital; ke1 00:44 Drug: Zofran (Ondansetron) 4 mg Route: IVP; Site: left antecubital; ke1 02:00 Drug: Insulin Regular Human 10 units {Co-Signature: ll3 (Yan Marrero RN).} Route: ke1 IVP; Site: left antecubital; 02:00 Drug: Insulin Drip - (Insulin Regular Human 100 units, NS 0.9% 100 ml) {Co-Signature: ke1 ll3 (Yan Marrero RN).} Route: IV; Rate: 6 units/hr; Site: left antecubital; 02:07 Drug: NS 0.9% 500 ml Route: IV; Rate: 500 ml/hr; Site: left antecubital; ke1 02:14 Drug: Ativan (LORazepam) 0.5 mg Route: IVP; Site: left antecubital; ke1 Disposition: 07:00 Co-signature as Attending Physician, Brett Lema MD. [email or web address] Disposition Summary: 06/01/22 02:21 Hospitalization Ordered Hospitalization Status: Inpatient Admission cp Provider: Tom Newman cp Location: Intensive Care Unit cp Condition: Fair cp Problem: new cp Symptoms: have improved cp Bed/Room Type: Standard cp Room Assignment: 2-(06/01/22 04:39) kd3 Diagnosis - Diabetes mellitus due to underlying condition with ketoacidosis cp - Fall from non-moving wheelchair cp Forms: - Medication Reconciliation Form cp - SBAR form cp Signatures: Dispatcher [employer] EDMS Regina Pickering, RN RN Michael Hayes PA PA cp Brett Lema MD MD mh7 Priya Hernandez RN RN kd3 Santa Stevens RN RN ke1 Yan Marrero RN ll3 Corrections: (The following items were deleted from the chart) 01:14 00:00 Head C Spine CAP W Con+CT.RAD.BRZ ordered. EDTN EDTN 04:39 02:21 cp kd3
--- NOTE | 2022-06-01 02:21 | ER ---
[facility] Name: Demetrius Sarmiento Age: 82 yrs Sex: Male : 1940 Arrival Date: 05/31/2022 Time: 22:01 Bed 16 Private MD: Diagnosis: Diabetes mellitus due to underlying condition with ketoacidosis;Fall from non-moving wheelchair Presentation: 05/31 22:02 Chief complaint: EMS states: they were toned out for report of pt with hip pain. bb Coronavirus screen: At this time, the client does not indicate any symptoms associated with coronavirus-19. Ebola Screen: No symptoms or risks identified at this time. Initial Sepsis Screen: Does the patient meet any 2 criteria? No. Patient's initial sepsis screen is negative. Does the patient have a suspected source of infection? No. Patient's initial sepsis screen is negative. Risk Assessment: Do you want to hurt yourself or someone else? Patient reports no desire to harm self or others. Onset of symptoms was May 31, 2022. 22:02 Method Of Arrival: EMS: [facility] 22:02 Acuity: LANCE 4 bb Triage Assessment: 22:06 General: Appears uncomfortable, Behavior is agitated. Pain: Complains of pain in back bb Pain currently is 9 out of 10 on a pain scale. Neuro: Level of Consciousness is awake, alert, obeys commands, Oriented to person, situation. Cardiovascular: Capillary refill < 3 seconds. Respiratory: Respiratory effort is unlabored. GI: No signs and/or symptoms were reported involving the gastrointestinal system. Derm: Skin is pink, warm \\T\\ dry. Musculoskeletal: Circulation, motion, and sensation intact. Reports pain in back and hip. Historical: - Allergies: 22:06 No Known Allergies; bb - Home Meds: 22:06 atorvastatin oral [Active]; cyclobenzaprine Oral [Active]; donepezil oral [Active]; bb Nitrostat SL [Active]; Potassium Chloride Oral [Active]; quetiapine oral [Active]; Trazodone Oral [Active]; - PMHx: 22:06 Alzheimer's disease; CAD; diabetes mellitus; Hypertensive disorder; [place]; sciatica; bb Hypercholesterolemia; - PSHx: 22:06 nephrectomy; nerve stimulator; bb - Social history:: Smoking status: Patient denies any tobacco usage or history of. Screenin/17 00:45 Abuse screen: Denies threats or abuse. Nutritional screening: No deficits noted. ke1 Tuberculosis screening: No symptoms or risk factors identified. Fall Risk Fall in past 12 months (25 points). Secondary diagnosis (15 points) impaired mobility, IV access (20 points). Ambulatory Aid- Furniture (30 pts.). Gait- Weak (10 pts.). Mental Status- Oriented to own ability (0 pts). Total Torres Fall Scale indicates No Risk (0-24 pts). Assessment: 03:07 Reassessment: BGL 198, rate decreases to half the current rate from 6 to 3 units/hr. ke1 04:37 Reassessment: No changes from previously documented assessment. Patient and/or family ll3 updated on plan of care and expected duration. Pain level reassessed. Patient is alert, oriented x 3, equal unlabored respirations, skin warm/dry/pink. 04:57 Reassessment: BGL 153 , decreases to 1.5 unit/hr. ke1 Vital Signs: 05/31 22:02 BP 113 / 64; Pulse 113; Resp 16 S; Temp 97.6(TE); Pulse Ox 100% on R/A; Pain 9/10; bb 06/01 01:00 BP 105 / 84; Pulse 126; Resp 18; Pulse Ox 100% ; ll3 02:00 BP 122 / 84; Pulse 112; Resp 17; Pulse Ox 100% ; ll3 03:00 BP 120 / 73; Pulse 111; Resp 16; Pulse Ox 100% ; ll3 04:00 BP 107 / 72; Pulse 110; Resp 17; Pulse Ox 100% ; ll3 ED Course: 05/31 22:01 Patient arrived in ED. bb 22:06 Triage completed. bb 22:06 Arm band placed on Patient placed in waiting room, Patient notified of wait time. bb 23:39 Michael Vizcarra PA is PHCP. cp 23:39 Brett Lema MD is Attending Physician. cp 23:40 Santa Stevens RN is Primary Nurse. ke1 06/01 00:22 Basic Metabolic Panel Sent. mh5 00:22 CBC with Diff Sent. mh5 00:22 Magnesium Sent. mh5 00:23 Patient has correct armband on for positive identification. Placed in gown. Bed in low 5 position. Call light in reach. Side rails up X 1. Side rails up X2. Warm blanket given. Pillow given. monitor tech on. Pulse ox on. NIBP on. 00:23 Initial lab(s) drawn, by me, sent to lab. EKG done, by ED staff, reviewed by Michael ilmon PA. Inserted saline lock: 22 gauge in left forearm, using aseptic technique. Blood collected. 00:50 XRAY Pelvis In Process Unspecified. EDMS 00:50 XRAY Hip LEFT 2 view In Process Unspecified. EDMS 01:08 Notified Nurse Practitioner and/or Physician Data Storage Specialist of a critical lab result(s), bb Chloride 84, Glucose 418 Michael GALVEZ notified. 01:43 Head C Spine Cap Wo Con In Process Unspecified. EDMS 02:21 Tom Newman MD is Hospitalizing Provider. cp 03:11 Urine collected: straight cath specimen, cloudy, COVID swab sent to lab. [facility] 03:12 COVID-19 SARS RT PCR (Document "Date of Onset" if Symptomatic) Sent. [facility] 03:12 Urine Microscopic Only Sent. [facility] Administered Medications: 00:44 Drug: morphine 2 mg Route: IVP; Infused Over: 4 mins; Site: left antecubital; ke1 00:44 Drug: Zofran (Ondansetron) 4 mg Route: IVP; Site: left antecubital; ke1 02:00 Drug: Insulin Regular Human 10 units {Co-Signature: ll3 (Yan Marrero RN).} Route: ke1 IVP; Site: left antecubital; 02:00 Drug: Insulin Drip - (Insulin Regular Human 100 units, NS 0.9% 100 ml) {Co-Signature: ke1 ll3 (Yan Marrero RN).} Route: IV; Rate: 6 units/hr; Site: left antecubital; 02:07 Drug: NS 0.9% 500 ml Route: IV; Rate: 500 ml/hr; Site: left antecubital; ke1 02:14 Drug: Ativan (LORazepam) 0.5 mg Route: IVP; Site: left antecubital; ke1 Outcome: 02:21 Decision to Hospitalize by Provider. cp 05:32 Patient left the ED. ll3 Signatures: Dispatcher [employer] Regina Kenyon RN RN bb Michael Vizcarra PA PA cp Martinez, Maria [facility] Yan Marrero RN RN ll3 Santa Stevens RN RN ke1 Yan Marrero RN ll3
[2022-06-01 03:10] LABS: Urine Blood Trace-intact (Negative); Urine Glucose 2+ (Negative); Urine Protein 1+ (Negative); Urine pH 5.5 (5.0-7.0)
[2022-06-01] MEDS ORDERED: ACETAMINOPHEN 500 MG TAB PO PRN (03:51)
[2022-06-01] MEDS ORDERED: ONDANSETRON 4 MG/2 ML VIAL IV PRN (03:51)
[2022-06-01 03:57] LABS: Urine Bacteria 20-50 /HPF (<20); Urine Mucus 2+ /HPF (None Seen); Urine RBC <5 /HPF (None Seen)
--- NOTE | 2022-06-01 04:19 | P.HP ---
Certification for Inpatient Patient admitted to: Inpatient With expected LOS: >2 Midnights Practitioner: I am a practitioner with admitting privileges, knowledge of patient current condition, hospital course, and medical plan of care. Services: Services provided to patient in accordance with Admission requirements found in Title 42 Section 412.3 of the Code of Federal Regulations Patient History Date of Service: 06/01/22 Reason for admission: Fall, hip pain, suspected diabetic ketoacidosis History of Present Illness: 82-year-old male patient with medical history significant for dementia, hypertension, hyperlipidemia, type 2 diabetes, CKD stage III who was evaluated for episode of fall. Patient was reported to have fallen from a wheelchair which is nonmobile. He reported the pain in the right and lower abdomen emergency was concerning for elevated glucose of over 400 with low sodium of 128. He had imaging studies that showed no significant fractures or dislocations. He was admitted for management of his metabolic issues and also for pain control. Allergies No Known Allergies Allergy (Verified 03/10/20 01:08) Home Medications: Furosemide [Lasix*] 40 mg PO DAILY 03/17/20 Isosorbide Mononitrate [Isosorbide Mononitrate ER] 120 tab PO DAILY 09/24/20 Potassium Chloride [Klor-Con 10] 10 meq PO DAILY 11/30/21 Trazodone [Desyrel*] 50 mg PO BEDTIME PRN 11/30/21 Multivitamin with Minerals [One Daily Plus Minerals] 1 each PO DAILY 12/18/21 Sitagliptin Phosphate [Januvia] 50 mg PO DAILY 12/18/21 Atorvastatin Calcium [Lipitor] 1 tab PO DAILY 02/26/22 Clopidogrel Bisulfate [Plavix*] 1 tab PO DAILY 02/26/22 Acetaminophen with Codeine [Tylenol with-Codeine #3 Tablet] 1 each PO BID PRN 02/27/22 Aspirin [Aspirin EC] 81 mg PO DAILY 02/27/22 Insulin Glargine,Hum.rec.anlog [Lantus] 30 unit SQ BEDTIME 02/27/22 Metoprolol Succinate [Toprol Xl*] 25 mg PO BID 02/27/22 Nitroglycerin 0.4 mg SL PRN PRN 02/27/22 Olanzapine [Zyprexa] 2.5 mg PO DAILY 02/27/22 Tramadol HCl [Ultram] 50 mg PO DAILY 02/27/22 - Past Medical/Surgical History Diabetic: Yes -: Chronic diastolic congestive heart failure -: HTN -: DM IDDM -: Heart Stents -: Solitary kidney -: CKD 3 -: CAD -: stents -: heart cath. Psychosocial/ Personal History: Patient is , lives at home alone - Family History Father -: Heart disease Notes: [place] - Social History Alcohol use: No CD- Drugs: No Caffeine use: No Review of Systems Eyes: Unremarkable ENT: Unremarkable Respiratory: Unremarkable Cardiovascular: Unremarkable Gastrointestinal: Unremarkable Musculoskeletal: Other (Hip pain) Integumentary: Unremarkable Neurological: Unremarkable Physical Examination - Physical Exam General: Alert HEENT: Atraumatic, Normocephalic Neck: Supple Respiratory: Normal air movement Cardiovascular: Regular rate/rhythm, Normal S1 S2 Gastrointestinal: Soft and benign - Studies Laboratory Data (last 24 hrs) 06/01/22 00:19: WBC 9.5, Hgb 13.3 L, Hct 38.5 L, Plt Count 342 06/01/22 00:19: Sodium 128 L, Potassium 3.5, BUN 65 H, Creatinine 2.68 H, Glucose 418 H*, Magnesium 2.3 Assessment and Plan - Plan Type 2 diabetes Hyperglycemia Hyponatremia CKD stage IV Fall Hip pain Plan: Patient did have a fall episode however there is no overt dislocation or fractures. Labs showed elevated glucose of over 4 denies concern for DKA. Insulin drip has been started. Follow symptomatology and labs closely. Continue DKA protocol for management. Continue IV fluid for hydration. Continue pain control. We will continue to monitor blood sugar before meals and at bedtime. Prophylaxis: Heparin for DVT prophylaxis due to advanced CKD. CODE STATUS: Full code. Disposition: We will treat DKA and discharge pt once clinically stable. - Advance Directives Does patient have a Living Will: No Does patient have a Durable POA for Healthcare: No
[2022-06-01] MEDS: NA CHLORIDE 0.9% 1,000 ML IV SCH ×2 (06:41→16:04)
[2022-06-01 07:13] LABS: Troponin High Sensitivity 73.4 pg/mL (<58.9)
[2022-06-01] MEDS: HEPARIN 5000 UNIT/ML 1 ML VIAL SQ SCH ×2 (09:34→16:04)
[2022-06-01] MEDS: INSULIN -REGULAR HUMAN 50 UNIT/0.5 ML ML SQ SCH ×4 (09:34→23:12)
[2022-06-01] MEDS: KCL 20 MEQ/100 mL IVPB 20 MEQ/100 ML BAG IV SCH ×2 (09:53→12:14)
--- NOTE | 2022-06-01 14:20 | P.PN ---
Date of Service: 06/01/22 Patient is still somnolent. Vital stable. BMP reviewed. Doubt patient has DKA. UA suggestive of UTI. Diagnosis Acute metabolic encephalopathy. DM with hyperglycemia Acute cystitis Alzheimer dementia. Plan: Start IV Rocephin. Discontinue insulin drip. Start subcutaneous insulin coverage. IV hydration. Neurochecks.
[2022-06-01 18:21] LABS: Specific Gravity 1.025 (1.005-1.030); Urine Bilirubin Negative (Negative); Urine Blood 1+ (Negative); Urine Clarity Clear (Clear); Urine Color Yellow (Yellow); Urine Glucose Negative (Negative); Urine Protein Negative (Negative); Urine Urobilinogen 0.2 mg/dL (0.2-1.0); Urine pH 5.5 (5.0-7.0)
[2022-06-01] MEDS ORDERED: HYDROCODONE/APAP 5/325 MG TAB PO ONE (18:32)
[2022-06-01 19:04] LABS: Urine Bacteria 20-50 /HPF (<20)
[2022-06-01] MEDS ORDERED: MORPHINE 2 MG/ML SYR IV ONE (20:03)
[2022-06-01] MEDS ORDERED: TRAZODONE 50 MG TABLET PO ONE (22:00)
[2022-06-02] MEDS: HEPARIN 5000 UNIT/ML 1 ML VIAL SQ SCH ×2 (03:06→08:41)
[2022-06-02 06:17] VITALS: BMI 20.3
[2022-06-02] MEDS: INSULIN -REGULAR HUMAN 50 UNIT/0.5 ML ML SQ SCH ×2 (07:30→12:07)
[2022-06-02] MEDS ORDERED: CEFTRIAXONE 1,000 MG in NA CHLORIDE 0.9% 50 ML IVPB SCH (09:00)
[2022-06-02] MEDS ORDERED: HALOPERIDOL LACT 5 MG/ML INJ IV PRN (09:18)
[2022-06-02] MEDS ORDERED: CLOPIDOGREL 75 MG TABLET PO SCH (09:30)
[2022-06-02] MEDS ORDERED: DOCUSATE NA 100 MG CAP PO SCH (10:00)
[2022-06-02] MEDS ORDERED: METOPROLOL XL 25 MG TAB PO SCH (10:00)
[2022-06-02] MEDS: NA CHLORIDE 0.9% 1,000 ML IV SCH ×2 (10:00)
[2022-06-02] MEDS ORDERED: LIDOCAINE 4% PATCH TD SCH (10:00)
[2022-06-02 12:21] VITALS: O2SAT 100
--- NOTE | 2022-06-02 12:45 | EKG ---
Test Date: 2022-06-01 Test Time: 00:34:12 Director Of Managed Services: HARI MEASUREMENT RESULTS: Intervals: Rate: 106 GA: 178 QRSD: 118 QT: 376 QTc: 499 Atkinson: P: 69 GA: 178 QRS: -56 T: 117 INTERPRETIVE STATEMENTS: Sinus tachycardia Left axis deviation Left ventricular hypertrophy with QRS widening and repolarization abnormality Cannot rule out Septal infarct, age undetermined Abnormal ECG Compared to ECG 02/25/2022 22:02:24 Left ventricular hypertrophy now present Early repolarization now present Myocardial infarct finding now present Sinus rhythm no longer present Right bundle-branch block no longer present T-wave abnormality no longer present Possible ischemia no longer present Electronically Signed On 06-02-22 12:41:44 CDT by Jim Baldwin
[2022-06-02] MEDS ORDERED: GABAPENTIN 100 MG CAP PO SCH (14:00)
--- NOTE | 2022-06-02 14:02 | RAD REPORT ---
EXAM DESCRIPTION: 1. CT of the head without contrast 2. CT of the cervical spine without contrast. 3. CT of the chest, abdomen, and pelvis with without contrast CLINICAL HISTORY: Fall from wheelchair COMPARISON: None available TECHNIQUE: Axial CT of the head obtained from the skull apex to the skull base without contrast. Axi al CT images of the cervical spine obtained from the skull base through the thoracic inlet. Sagittal and coronal reformatted images available. CT of the chest, abdomen, and pelvis obtained without contr ast. Evaluation of the soft tissues suboptimal due to lack of iodinated contrast. This exam was perfo rmed according to our departmental dose-optimization program, which includes automated exposure contr ol, adjustment of the mA and/or kV according to patient size and/or use of iterative reconstruction t echnique. FINDINGS: CT head: No acute intracranial hemorrhage identified. No mass, mass effect, shift of the midline, abnormal ext ra-axial fluid collection or CT evidence of acute ischemic change identified. The ventricular system and sulcal spaces are mildly enlarged compatible with mild cerebral atrophy. Scattered areas of hyp odensity throughout the supratentorial white matter are nonspecific and may be related to chronic sma ll vessel ischemic change. The visualized paranasal sinuses and mastoid air cells are well aerated. No skull fracture identifi ed. Visualized orbits and globes are unremarkable. Atherosclerotic calcification of the intracranial internal carotid and vertebral arteries. Cervical CT: Alignment of the cervical spine is maintained without evidence of subluxation. The atlantoaxial, at lantodental, and occipitoatlantal intervals are preserved. No fracture identified. Vertebral body h eight preserved. Prevertebral soft tissues are unremarkable. Moderate to severe multilevel loss of intervertebral disc height with endplate spondylosis, facet art hropathy, and vertebral spurring. Posterior disc osteophyte complex at multiple levels encroach upon the anterior spinal canal. Multilevel osseous foraminal narrowing. Visualized skull base is intact. No fracture of the visualized facial bones. Visualized mastoid air c ells and paranasal sinuses are well aerated. No cervical lymphadenopathy. Atherosclerotic vascular calcification. Chest: Thyroid: No abnormalities of the visualized thyroid. Great Vessels: Great vessels have normal anatomic configuration. Thoracic Aorta: Atherosclerotic calcification of thoracic aorta. Pulmonary arteries: The main pulmonary artery is not dilated. Heart: Coronary artery atherosclerosis. No cardiomegaly or significant Lymph Nodes: No enlarged mediastinal lymph nodes identified. Esophagus: No abnormalities of the esophagus identified Other: No additional findings. Lungs: Bibasilar patchy opacities. No airspace consolidation. Calcified. Pleura: No pleural effusion or pneumothorax. Trachea/Airways: No abnormalities of the visualized trachea or airways. Abdomen: Liver: The liver has normal size and density. Gallbladder: No calcified gallstones. Spleen, Pancreas, and Adrenal Glands: The spleen, pancreas, and adrenal glands are unremarkable. Kidneys: No hydronephrosis or obstructing ureteral calculus. Vasculature: Aortoiliac atherosclerosis. IVC is unremarkable. Stomach: The stomach and duodenum have normal course. Other: No free intraperitoneal air. No free fluid or lymphadenopathy. Pelvis: Bladder: Urinary bladder is unremarkable. Bowel: No dilated loops of large or small bowel. Scattered diverticula colon. Appendix: Normal appendix. Pelvis: Penile implant. Prostate is not enlarged. Bones: Multilevel disc height narrowing, endplate spondylosis and facet arthropathy. Posterior fixati on device. Mild osteoarthritic change of the hips. No acute fracture pelvis. IMPRESSION: 1. No acute intracranial abnormality. 2. No acute fracture or subluxation of the cervical spine. 3. Multilevel degenerative change of the cervical spine. 4. No acute traumatic, inflammatory or obstructive process identified in the chest, abdomen, or pel vis. 5. Coronary artery atherosclerosis. 6. Diverticulosis without evidence of acute diverticulitis. Electronically signed by: Durga Castro 06/01/2022 2:15 AM CDT Due to temporary technical issues with the PACS/Fluency reporting system, reports are being signed by the in house radiologists without review as a courtesy to insure prompt reporting. The interpreting radiologist is fully responsible for the content of the report.
[2022-06-02 14:13] VITALS: TEMP 97.1
--- NOTE | 2022-06-02 14:13 | P.DS ---
Admission Date: 06/01/22 Discharge Date: 06/02/22 Disposition: [facility] Discharge Condition: FAIR Reason for Admission: Fall, hip pain, suspected diabetic ketoacidosis - Problems (1) Alzheimer's dementia with behavioral disturbance Status: Acute (2) Hyperglycemia due to type 2 diabetes mellitus Status: Acute Qualifiers: Diabetes mellitus long filler cigar roller machine insulin use: with detention use Qualified Code(s): E11.65 - Type 2 diabetes mellitus with hyperglycemia; Z79.4 - [facility] (current) use of insulin Brief History of Present Illness: 82-year-old male patient with medical history significant for dementia, hypertension, hyperlipidemia, type 2 diabetes, CKD stage III was transferred from the senior care to the emergency department due to episode of fall. Patient was reported to have fallen from a wheelchair. He reported pain in the right hip and lower abdomen. He had elevated glucose of over 400 with low sodium of 128 in the emergency department. Images done in the ED showed no fracture or dislocation of the right hip. ED physician was concerned about DKA and started patient on insulin drip. He was admitted for management of his metabolic issues and also for pain control. Hospital Course: Patient admitted to the ICU for insulin drip. Labs were reviewed and noted patient is not in DKA. Insulin drip was discontinued and patient transition to subcutaneous insulin. UA suggested mild evidence of UTI for which patient was started on IV Rocephin. Patient had periods of agitation which was monitored by increasing his home dose Seroquel from 25 twice daily to 50 mg twice daily. This was able to control his agitation. Urine culture yielded no growth. Patient is troponin was slightly elevated but trended flat suggesting demand ischemia. His home medications including aspirin, Plavix and Lipitor for CAD were continued during the hospital stay. Patient is currently at baseline and deemed stable for discharge. I am told daughter wants to take him home and take care of him. Patient is clinically stable for discharge. Vital Signs/Physical Exam: Temp Pulse Resp BP Pulse Ox 97.8 F 100 H 18 102/57 L 100 06/02/22 12:00 06/02/22 12:00 06/02/22 11:00 06/02/22 12:00 06/02/22 09:00 General: In no apparent distress, Confused HEENT: PERRLA, Mucous membr. moist/pink, EOMI Neck: JVD not distended Respiratory: Clear to auscultation bilaterally, Normal air movement Cardiovascular: No edema, Regular rate/rhythm, Normal S1 S2 Gastrointestinal: Soft and benign, Non-distended, No tenderness Musculoskeletal: No swelling, No tenderness Integumentary: No rashes Neurological: Normal strength at 5/5 x4 extr Laboratory Data at Discharge: WBC 9.5 K/uL (4.3-10.9) 06/01/22 00:19 Hgb 13.3 g/dL (13.6-17.9) L 06/01/22 00:19 Hct 38.5 % (39.6-49.0) L 06/01/22 00:19 Plt Count 342 K/uL (152-406) 06/01/22 00:19 Sodium Cancelled 06/01/22 07:32 Potassium 3.9 mmol/L (3.5-5.1) 06/01/22 18:07 BUN Cancelled 06/01/22 07:32 Creatinine Cancelled 06/01/22 07:32 Glucose Cancelled 06/01/22 07:32 Magnesium 2.3 mg/dL (1.8-2.4) 06/01/22 00:19 Home Medications: Aspirin Chewable [Aspirin Chewable*] 81 mg PO DAILY 06/01/22 Atorvastatin Calcium [Lipitor] 40 mg PO BEDTIME 06/01/22 Clopidogrel Bisulfate [Plavix*] 75 mg PO DAILY 06/01/22 Docusate Sodium 100 mg PO BID 06/01/22 Donepezil [Aricept*] 5 mg PO BEDTIME 06/01/22 Empagliflozin [Jardiance] 10 mg PO DAILY 06/01/22 Furosemide [Lasix*] 40 mg PO BID 06/01/22 Gabapentin [Neurontin*] 100 mg PO TID 06/01/22 Lidocaine [Lidocaine Pain Relief] 1 patch TD DAILY 06/01/22 Metoprolol Succinate [Toprol Xl*] 25 mg PO DAILY 06/01/22 Hydrocodone 5/APAP 325 [[place] 5/325] 1 tab PO Q6H PRN #12 tab 06/02/22 Losartan Potassium 25 mg PO DAILY 06/02/22 Quetiapine [Seroquel*] 50 mg PO BID #60 tab 06/02/22 New Medications: Hydrocodone 5/APAP 325 [[place] 5/325] 1 tab PO Q6H PRN #12 tab PRN Reason: Pain Quetiapine [Seroquel*] 50 mg PO BID #60 tab Diet: AHA Activity: Fall precautions Time spent managing pt's care (in minutes): 32
--- NOTE | 2022-06-02 14:15 | RAD REPORT ---
EXAM DESCRIPTION: Pelvis CLINICAL HISTORY: PAIN COMPARISON: 04/07/2022 FINDINGS: Single view of the pelvis. No acute fracture or dislocation. Osteopenia. Atherosclerotic v ascular calcification. Penile implant. Atherosclerotic vascular calcification. Partial visualization of lumbar fixation. Right pelvic generator. Mild bilateral hip joint space narrowing IMPRESSION: 1. No acute fracture or dislocation. Electronically signed by: Durga Castro 06/01/2022 12:57 AM CDT Due to temporary technical issues with the PACS/Fluency reporting system, reports are being signed by the in house radiologists without review as a courtesy to insure prompt reporting. The interpreting radiologist is fully responsible for the content of the report.
--- NOTE | 2022-06-02 14:15 | RAD REPORT ---
EXAM DESCRIPTION: Hip Left 2 View CLINICAL HISTORY: PAIN COMPARISON: 04/07/2022 FINDINGS: 2 views of the left hip. No acute fracture or dislocation. Osteopenia. Mild left hip joint space narrowing. Atherosclerotic vascular calcification. Penile implant. IMPRESSION: 1. No acute fracture or dislocation. Electronically signed by: Durga Castro 06/01/2022 12:57 AM CDT Due to temporary technical issues with the PACS/Fluency reporting system, reports are being signed by the in house radiologists without review as a courtesy to insure prompt reporting. The interpreting radiologist is fully responsible for the content of the report.
[2022-06-02 14:24] VITALS: BP 149/72
[2022-06-02] MEDS ORDERED: FUROSEMIDE 40 MG TABLET PO SCH ×2 (17:00→21:00)
[2022-06-02] MEDS ORDERED: QUETIAPINE 25 MG TAB PO SCH (21:00)
[2022-06-02] MEDS ORDERED: ATORVASTATIN 40 MG TAB PO SCH (21:00)
[2022-06-02] MEDS ORDERED: DONEPEZIL HCL 5 MG TAB PO SCH (21:00)
[2022-06-03] MEDS ORDERED: ASPIRIN 81 MG CHEWABLE TABLET PO SCH (09:00)
[2022-06-03] MEDS ORDERED: METOPROLOL XL 25 MG TAB PO SCH (09:00)
--- OUTSIDE RECORDS SUMMARY | 2022-06-05 09:55 | XMS REPORT | Continuity of Care Document ---
:1940 Author Organization [facility] t Address [address] [place] [address] Care Team Providers Name Role Phone Andres BRISCOE Primary Care Physician Unavailable Denny Attending Clinician Unavailable Lester Attending Clinician Unavailable KYRA Attending Clinician Unavailable Ricardo STONER Attending Clinician Unavailable ANA LILIA Attending Clinician Unavailable ANA LILIA Attending Clinician Unavailable Adela Fam MD Attending Clinician Isidoro Parisi MD Attending Clinician Daina DO Attending Clinician Jose DO Attending Clinician ANDREWS, S Attending Clinician Unavailable Rajinder PAC, [...] Meeks Attending Clinician Umang WOOTEN Attending Clinician Charisma WOOTEN T Attending Clinician Ariel STONER Attending Clinician Babar GONG Attending Clinician Justina FLORES Attending Clinician Unavailable Kyra BECKMANP, B Attending Clinician Sharon HARRY Attending Clinician Unavailable Maribell_P Attending Clinician Unavailable Silvina STONER, M Attending Clinician Julio Cesar WOOTEN Attending Clinician JULIO CESAR Attending Clinician Unavailable Simi Urrutia MD Attending Clinician Steven WOOTEN Attending Clinician STEVEN Attending Clinician Unavailable CHAVA Attending Clinician Unavailable Chava WOOTEN Attending Clinician Wes STONER Attending Clinician Physician, Primary or Family Admitting Clinician Unavailbrian RAE Admitting Clinician Unavailable ISIDORO PARISI Admitting Clinician Unavailable Isidoro Parisi MD Admitting Clinician DANIELLE MURGUIA Admitting Clinician Unavailable Lulú AGUILAR Admitting Clinician Unavailable LAUREN Admitting Clinician Unavailable MD LAUREN ORitesh Admitting [...] Number Effective Date Expiration Date Stacy torres [facility] [id number] 2020 00:00:00 [facility] [id number] 2019 DUAL COMPLETE HMO 00:00:00 [place]ICAID OF [place] [id number] 2018 00:00:00 Problems Condition Condition Condition Status Onset Resolution Last Treating Co mments Source Name Details Category Date Date Treatment Clinician Date Left hip Left hip Disease Active 2021- Unive rs pain pain 7-09 ity of 00:00: [place] [facility] Branch Unstable Unstable Disease Active 2020-0 Unive rs angina angina 5-07 ity of 00:00: [place] [facility] ALBA (acute ALBA (acute Disease Active 2020-0 U nivers kidney kidney 4-21 ity of injury) injury) 00:00: [place] 00 Medical Branch Chest pain Chest pain Disease Active 2020-0 U nivers 4-21 ity of 00:00: [place] [facility] Branch Chest pain Chest pain Disease Active 2020-0 U 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 4-15 it y of 00:00: [place] [facility] 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 3-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 00:00: 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 2018- U nivers lobe lobe 1-06 ity of pneumonia pneumonia 00:00: [facility] PNA PNA Disease Active 2019- Univers (pneumonia (pneumonia 0-25 it y of ) ) 00:00: [place] [facility] Acute on Acute on Disease Active 2018- Unive rs chronic chronic 0-25 ity of combined combined 00:00: [place] systolic systolic 00 Medica l and and Branch 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 Dyspnea Dyspnea Disease Active 2018-11 Univers 0-23 ity of 00:00: [place] 00 Medical Branch CHF CHF Disease Active Univers exacerbati exacerbati 2-17 it y of on on 00:00: [place] 00 Medical Branch Essential Essential Disease Active Uni vers hypertensi hypertensi 2-17 it y of on on 00:00: [place] 00 Medical Branch 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 00:00: [place] without without 00 Medical complicati complicati Br anch on, on, without without long-term long-term current current use of use of insulin insulin CHF CHF Disease Active Univers exacerbati exacerbati 2-17 it y of on on 00:00: [place] 00 Medical Branch Acute on Acute on Disease Active Unive rs chronic chronic 1-28 ity of systolic systolic 00:00: [place] CHF CHF 00 Medical (congestiv (congestiv Br anch e heart e heart failure) failure) Elevated Elevated Disease Active Unive rs troponin I troponin I 1-27 it y of level level 00:00: [place] 00 Medical Branch DE LA CRUZ DE LA CRUZ Disease Active Univers (dyspnea (dyspnea 1-27 ity of on on 00:00: [place] exertion) exertion) 00 Medi birdie Branch Coronary Coronary Disease Active Unive rs artery artery 1-27 ity of disease disease 00:00: [place] involving involving 00 Medi birdie [place] Branch 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 00:00: [place] disease disease 00 Medical Branch Coronary Coronary Disease Active Unive rs artery artery 1-27 ity of disease disease 00:00: [place] involving involving 00 Medi birdie [place] Branch 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 NSTEMI NSTEMI Disease Active Univers (non-ST (non-ST 1-26 ity of elevated elevated 00:00: [place] myocardial myocardial 00 Me dical infarction infarction Br anch ) ) NSTEMI NSTEMI Disease Active Univers (non-ST (non-ST 1-26 ity of elevated elevated 00:00: [place] myocardial myocardial 00 Me dical infarction infarction [...] Allergie 12-08 Clear s 00:00: [place] 00 [facility] NO KNOWN Drug Active Univers ALLERGIE Class ity of S [facility] Social History Social Habit Start Date Stop Date Quantity Comments Source History of tobacco User of [facility] sity of use smokeless [facility] tobacco [place] Alcohol intake 2022-05-24 2022-05-24 Current University of 00:00:00 00:00:00 non-drinker of [facility] alcohol Branch (finding) Exposure to 2022-05-13 2022-05-23 Not sure University of SARS-CoV-2 (event) 00:00:00 23:05:00 [facility] Cigarettes smoked 2020-03-22 2020-03-22 Univers ity of current (pack per 00:00:00 00:00:00 ) - Reported Branch Cigarette 2020-03-22 2020-03-22 University of pack-years 00:00:00 00:00:00 [facility] Tobacco use and 2020-03-22 2020-03-22 Former smokeless Uni versity of exposure 00:00:00 00:00:00 tobacco user [facility] Sex Assigned At [birth year] Universit y of 00:00:00 00:00:00 [facility] Smoking Status Start Date Stop Date Source Ex-smoker 2020-03-22 00:00:00 2020-03-22 00:00:00 Universi ty of [facility] Medications Ordered Filled Start Stop Current Ordering Indication Dosage Frequency Signature Comments Components Source Medication Medication Date Date Medication? Clinician (SIG) Name Name nitroglycer 2022-0 Yes .4mg Take 0.4 Un mel in 7-16 mg by ity of (NITRO-TIME 16:29: mouth [place] ORAL) 51 needed for Medical Other Branch (chest pain every 5 minutes x 3 doses). donepeziL 5 2021-0 Yes 5mg Take 5 mg U nivers mg tablet 7-16 by mouth ity of 16:29: at [place] [address] bedtime. Medical Branch atorvastati 0 Yes 40mg Take 40 mg Univers n 40 mg 7-16 by mouth ity of tablet 16:29: at [place] [address] bedtime. Medical Branch gabapentin 0 Yes 100mg Take 100 Un mel 300 mg 7-16 mg by ity of capsule 16:29: mouth in [place] [address] the Medical morning Branch and 100 mg at noon and 100 mg in the evening. empaglifloz 0 Yes 10mg Take 10 mg Univers in 7-16 by mouth ity of (JARDIANCE) 16:29: [place]. [place] 10 mg 51 Medical Branch nitroglycer Yes .4mg Take 0.4 Un mel in 7-16 mg by ity of (NITRO-TIME 16:29: [place]AL) 51 needed for Medical Other Branch (chest pain every 5 minutes x 3 doses). donepeziL 5 0 Yes 5mg Take 5 mg U nivers mg tablet 7-16 by mouth ity of 16:29: at [place] [address] bedtime. Medical Branch atorvastati 0 Yes 40mg Take 40 mg Univers n 40 mg 7-16 by mouth ity of tablet 16:29: at [place] [address] bedtime. Medical Branch gabapentin 0 Yes 100mg Take 100 Un mel 300 mg 7-16 mg by ity of capsule 16:29: mouth in [place] [address] the Medical morning Branch and 100 mg at noon and 100 mg in the evening. empaglifloz 2021-0 Yes 10mg Take 10 mg Univers in 7-16 by mouth ity of (JARDIANCE) 16:29: [place]. [place] 10 mg 51 Medical Branch lidocaine 0 Yes 3{patch 3 Patch, U nivers (LIDODERM) 7-16 } Topical, ity o f 5 % (700 14:00: Administer [place] mg/patch) 00 over 12 Medical patch 3 Hours, Branch Patch DAILY, First dose (after last modificati on) on 05/31/22 at 0900, Until Discontinu ed, Routine spironolact 2021-0 Yes 12.5mg Take 0.5 Univers one 25 mg 7-16 tablets by ity of tablet 00:00: mouth in [place] 00 the Medical morning. Branch lidocaine 5 2021-0 Yes 3{patch Apply 3 Univers % (700 7-16 } Patches to ity of mg/patch) 00:00: area(s[place] in [place] patch 00 the Medical morning. Branch clopidogreL 2021-0 Yes 75mg Take 1 Univ ers 75 mg 7-16 tablet by ity of tablet 00:00: mouth in [place] 00 the Medical morning. Branch aspirin 81 2021-0 Yes 81mg Take 1 Unive rs mg chewable 7-16 tablet by ity of tablet 00:00: mouth in [place] 00 the Medical morning. Branch metoprolol 2021-0 Yes 12.5mg Take 0.5 U nivers succinate 7-16 tablets by ity of XL 25 mg 24 00:00: mouth in [place] hr tablet 00 the Medical morning. Branch spironolact 2021-0 Yes 12.5mg Take 0.5 Univers one 25 mg 7-16 tablets by ity of tablet 00:00: mouth in [place] 00 the Medical morning. Branch lidocaine 5 2021-0 Yes 3{patch Apply 3 Univers % (700 7-16 } Patches to ity of mg/patch) 00:00: area(s) in [place] patch 00 the Medical morning. Branch clopidogreL 2021-0 Yes 75mg Take 1 Univ ers 75 mg 7-16 tablet by ity of tablet 00:00: mouth in [place] 00 the Medical morning. Branch aspirin 81 2021-0 Yes 81mg Take 1 Unive rs mg chewable 7-16 tablet by ity of tablet 00:00: mouth in [place] 00 the Medical morning. Branch metoprolol 2021-0 Yes 12.5mg Take 0.5 U nivers succinate 7-16 tablets by ity of XL 25 mg 24 00:00: mouth in [place] hr tablet 00 the Medical morning. Branch lidocaine 2021-0 2021- No 1{patch 1 Patch, Univers (LIDODERM) 7-15 07-16 } Topical, ity of 5 % (700 18:00: 05:40 Administer [place] mg/patch) 00 :00 over 12 Medical patch 1 Hours, Branch Patch ONCE, 1 dose, On Thu05/30/22 at 1300, Routine trazodone 2021- No 50mg Take 50 mg U nivers HCl 05-30-15 by mouth ity of (TRAZODONE 16:26: 00:00 every [place] ORAL) 33 :00 evening. Medical Branch potassium 2021-2021- No 10meq Take 10 Uni vers chloride 10 - 07-15 mEq by ity o f mEq CR 16:26: 00:00 mouth [place] tablet 33 :00 daily. Medical Branch losartan 25 2021-2021- No 25mg Take 25 mg Univers mg tablet 05-30-15 by mouth ity o f 16:26: 00:00 in the [place] 33 :00 morning. Medical Branch isosorbide 2021-2021- No 120mg Take 120 U nivers mononitrate 05-30 07-15 mg by ity of 60 mg 24 hr 16:26: 00:00 mouth. [place] tablet 33 :00 Medical Branch furosemide 2021- No 20mg Take 20 mg Univers 20 mg -30 05-15 by mouth ity of tablet 16:26: 00:00 in the [place] 33 :00 morning. Medical Branch metoprolol 2021-2021- No 25mg Take 25 mg Univers succinate 05-30-15 by mouth ity o f XL 25 mg 24 16:26: 00:[address] [facility] as hr tablet 33 :00 morning. Medica l Branch docusate 2021-0 Yes 100mg Take 1 Univer s 100 mg 7-15 capsule by ity of capsule 00:00: mouth in [place] 00 the Medical morning Branch and 1 capsule in the evening. furosemide 2021-0 Yes 80mg Take 1 Unive rs 80 mg 7-15 tablet by ity of tablet 00:00: mouth [place] 00 every Medical morning Branch and evening. docusate 2021-0 Yes 100mg Take 1 Univer s 100 mg 7-15 capsule by ity of capsule 00:00: mouth in [place] 00 the Medical morning Branch and 1 capsule in the evening. furosemide 2021-0 Yes 80mg Take 1 Unive rs 80 mg 7-15 tablet by ity of tablet 00:00: mouth [place] 00 every Medical morning Branch and evening. oxyCODONE-a 2021- Yes [id number] 1{tbl} Take 1 U nivers cetaminophe 05-30 tablet by it y of n 5-325 mg 00:00: 04:59 mouth [place] per tablet 00 :00 every 4 Medica l (four) Branch hours as needed for Pain (scale 4-6) for up to 3 days. Indication s: acute pain, hip pain oxyCODONE-a 2021- Yes 4647 1{tbl} Take 1 U nivers cetaminophe 05-30 tablet by it y of n 5-325 mg 00:00: 04:59 mouth [place] per tablet 00 :00 every 4 Medica l (four) Branch hours as needed for Pain (scale 4-6) for up to 3 days. Indication s: acute pain, hip pain spironolact Yes 12.5mg 12.5 mg, Univers one 05-29 Oral, ity of (ALDACTONE) 20:00: DAILY, [place] tablet 12.5 00 First dose Me dical mg on Thu Branch 05/29/22 at 1500, Until Discontinu ed, Routine methocarbam No 500mg 500 mg, U nivers oL 05-29 Oral, ity of (ROBAXIN) 09:44: 13:02 Q4HPRN, [place] tablet 500 52 :28 Starting Medic al mg on Thu Branch 05/29/22 at 0444, Until Thu05/30/22 at 0802, Routine, Muscle Spasms morpHINE (2 Yes 2mg 2 mg, Slow Univers mg/mL) 05-28 IV Push, ity of injection 2 22:15: Q6HPRN, [place] mg 00 Starting Medical on Thu Branch 05/28/22 at 1715, Until Discontinu ed, Routine, Pain (scale 7-10) oxyCODONE-a Yes 1{tbl} 1 tablet, Univers cetaminophe 05-28 Oral, ity of n 22:08: Q4HPRN, [place] (PERCOCET) 46 Starting Medic al 5-325 mg on Thu per tablet 05/28/22 at 1 tablet 1708, Until Discontinu ed, Routine, Pain (scale 4-6) furosemide Yes 80mg 80 mg, Unive rs (LASIX) 05-28 Oral, ity of tablet 80 22:00: QAM+PM, [place] mg 00 First dose Medical on Thu05/28/22 at 1700, Until Discontinu ed, Routine metoprolol Yes 12.5mg 12.5 mg, U nivers succinate 05-28 Oral, ity of XL (TOPROL 20:15: DAILY, [place] XL) tablet 00 First dose Med ical 12.5 mg on Thu05/28/22 at 1515, Until Discontinu ed, Routine methocarbam No 500mg 500 mg, U nivers oL 05-28 0715 Oral, QID, ity of (ROBAXIN) 17:00: 13:02 First dose [place] tablet 500 00 :36 on Thu [facility] mg 05/28/22 at Branch 1200, Until Discontinu ed, Routine gabapentin Yes 100mg 100 mg, Uni vers (NEURONTIN) 05-27 Oral, TID, it y of capsule 100 19:00: First dose [place] mg 00 on [facility] 05/27/22 at Branch 1400, Until Discontinu ed, Routine QUEtiapine Yes 25mg 25 mg, Unive rs (SEROQUEL) 05-27 Oral, ity of tablet 25 18:45: BIDPRN, [place] mg 00 Starting Medical on [facility] 05/27/22 at 1345, Until Discontinu ed, Routine, agitation, anxiety QUEtiapine 2021- No 25mg 25 mg, Univ ers (SEROQUEL) 05-2712 Oral, BID, it y of tablet 25 13:00: 18:31 First dose [place] mg 00 :35 on [facility] 05/27/22 at Branch 0800, Until Discontinu ed, Routine HYDROcodone 2021- No 1{tbl} 1 tablet, Univers -acetaminop 05-27 Oral, ity of hen (NORCO) 05:49: 22:09 Q4HPRN, [place] 10-325 mg 42 :14 Starting Medica l tablet 1 on [facility] tablet 05/27/22 at 0049, Until Thu05/28/22 at 1709, Routine, Pain (scale 4-6) morpHINE (4 2021- No 4mg 4 mg, Slow Univers mg/mL) 05-27 IV Push, ity of injection 4 05:49: 22:09 Q4HPRN, [place] mg 29 :14 Starting Medical on [facility] 05/27/22 at 0049, Until Thu05/28/22 at 1709, Routine, Pain (scale 7-10) QUEtiapine 2021- No 25mg 25 mg, Univ ers (SEROQUEL) 05-26 Oral, ity of tablet 25 23:30: 23:25 ONCE, 1 [place] mg 00 :00 dose, On Medical [facility] 05/26/22 at 1830, Routine sulfur No [id number] 5mL 5 mL, Unive rs hexafluorid 05-26 Intravenou i ty of e microsphr 15:00: 15:00 s, ONCE, 1 [place] (LUMASON) 00 :00 dose, On Medica l injection 5 [facility] mL 05/26/22 at 1000, Routine
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 : KITTY GAGE clopidogreL Yes 75mg 75 mg, Univ ers (PLAVIX) 75 05-26 Oral, ity of mg tablet 14:00: DAILY, [place] 75 mg 00 First dose Medical on [facility] 05/26/22 at 0900, Until Discontinu ed, Routine aspirin Yes 81mg 81 mg, Univers chewable 05-26 Oral, ity of tablet 81 14:00: DAILY, [place] mg 00 First dose Medical on [facility] 05/26/22 at 0900, Until Discontinu ed, Routine ketorolac 2021- No 15mg 15 mg, Unive rs (TORADOL) 05-25 Slow IV ity of injection 21:45: 21:01 Push, [place] 15 mg 00 :00 ONCE, 1 Medical dose, On Branch 05/25/22 at 1645, Routine ALPRAZolam 2021- No .25mg 0.25 mg, U ulises (XANAX) 05-25 Oral, ity of tablet 0.25 21:45: 21:01 ONCE, 1 [place] mg 00 :00 dose, On [facility] 05/25/22 at 1645, Routine furosemide 2021- No 40mg 40 mg, Univ ers (LASIX) 05-25 07-13 Slow IV ity of injection 19:00: 19:49 Push, [place] 40 mg 00 :32 Q12H, Medical First dose Branch on [place] 05/25/22 at 1400, Until Discontinu ed, Routine docusate Yes 100mg 100 mg, Unive rs (COLACE) 7 Oral, BID, ity o f capsule 100 13:00: First dose [place] mg 00 on [facility] 05/25/22 at Branch 0800, Until Discontinu ed, Routine ketorolac 2021- No 15mg 15 mg, Unive rs (TORADOL) 05-25 Slow IV ity of injection 04:30: 04:18 Push, [place] 15 mg 00 :00 ONCE, 1 Medical dose, On [facility] 05/24/22 at 2330, Routine atorvastati Yes 40mg 40 mg, Univ ers n (LIPITOR) 7 Oral, QHS, it y of tablet 40 02:00: First dose [place] mg 00 on [facility] 05/24/22 at Branch 2100, Until Discontinu ed, Routine lidocaine 2021- No 2{patch 2 Patch, Univers (LIDODERM) 05-24 } Topical, ity of 5 % (700 23:45: 16:50 Administer [place] mg/patch) 00 :54 over 12 Medical patch 2 Hours, Branch Patch DAILY, First dose on [facility] 05/24/22 at 1845, Until Discontinu ed, Routine HYDROcodone 2021- No 1{tbl} 1 tablet, Univers -acetaminop 05-24 Oral, ity of hen (NORCO) 23:43: 05:49 Q4HPRN, [place] 10-325 mg 24 :53 Starting Medica l tablet [address] [facility] tablet 05/24/22 at 1843, Until 05/27/22 at 0049, Routine, Pain (scale 4-6), Pain (scale 7-10) heparin Yes 5000U 5,000 Univers (porcine) 05-24 Units, ity of injection 13:00: Subcutaneo [place] 5,000 Units 00 us, Q12H, Med ical First dose Branch on [facility] 05/24/22 at 0800, Until Discontinu ed, Routine ondansetron Yes 4mg 4 mg, Slow Univers (ZOFRAN 05-24 IV Push, ity of (PF)) 10:55: Q6HPRN, [place] injection 4 26 Starting Medi birdie mg on [facility] Branch 05/24/22 at 0555, Until Discontinu ed, Routine, Nausea and Vomiting (N/V) acetaminoph Yes 650mg 650 mg, Un mel en 05-24 Oral, ity of (TYLENOL) 10:55: Q6HPRN, [place] tablet 650 21 Starting Medic al mg on [facility] Branch 05/24/22 at 0555, Until Discontinu ed, Routine, Pain (scale 1-3) QUEtiapine 2021- No 25mg 25 mg, Univ ers (SEROQUEL) 05-24 Oral, ity of tablet 25 10:54: 23:07 QHSPRN, [place] mg 34 :00 Starting Medical on [facility] Branch 05/24/22 at 0554, Until 05/26/22 at 1807, Routine, agitation/ insomnia lidocaine 2021- No 1{patch 1 Patch, Univers (LIDODERM) 05-24 } Topical, ity of 5 % (700 08:45: 20:45 Administer [place] mg/patch) 00 :00 over 12 Medical patch 1 Hours, Branch Patch ONCE, 1 dose, On [facility] 05/24/22 at 0345, Routine enoxaparin 2021- No 1mg/kg 80 mg Uni vers (LOVENOX) 05-24 (rounded ity o f injection 08:15: 07:51 from 77.1 [place] 80 mg 00 :00 mg = 1 Medical mg/kg Branch ?77.1 kg), Subcutaneo us, ONCE, 1 dose, On [facility] 05/24/22 at 0315, Routine aspirin 2021- No 324mg 324 mg, Unive rs chewable 05-24 Oral, ONCE ity of tablet 324 08:15: 07:40 NOW, 1 [place] mg 00 :00 dose, On Medical 05/24/22 Branch at 0315, ADAMA OLANZapine No 2.5mg 2.5 mg, Un mel (ZyPREXA) 05-24 Oral, ONCE ity of tablet 2.5 08:15: 07:36 NOW, 1 [place] mg 00 :00 dose, On Medical 05/24/22 Branch at 0315, Routine iopamidol 2021- No [id number] 100mL 100 mL, Univers (ISOVUE 05-24 Intravenou ity o f 370-500 mL) 08:00: 06:34 s, ONCE, 1 [place] injection 00 :00 dose, On Medica l 100 mL 05/24/22 Branch at 0300, Routine HYDROcodone 2021- No 1{tbl} 1 tablet, Univers -acetaminop 05-24 Oral, ONCE i ty of hen (NORCO) 08:00: 06:54 NOW, 1 [place] 10-325 mg 00 :00 dose, On Medica l tablet 1 05/24/22 Branc h tablet at 0300, Routine ketorolac No 15mg 15 mg, Unive rs (TORADOL) 05-24 Slow IV ity of injection 07:45: 07:49 Push, [place] 15 mg 00 :00 ONCE, 1 Medical dose, On Branch 05/24/22 at 0245, Routine FENTanyl PF No 50ug 50 mcg, Un mel (SUBLIMAZE 05-24 Slow IV ity o f (PF)) 06:46: 23:44 Push, [place] injection 51 :55 Q30MIN Medical 50 mcg PRN, 3 Branch doses, Starting on 05/24/22 at 0146, Until 05/24/22 at 1844, ADAMA, Pain (scale 7-10) NaCl 0.9% 2021- No 500mL at 999 Univ ers (NS) bolus 05-24 mL/hr, 500 it y of infusion 04:15: 06:06 mL, IV [place] 500 mL 00 :00 Infusion, Medical ONCE, 1 Branch dose, On Thu05/23/22 at 2315, STAT FENTanyl PF 2021- No 50ug 50 mcg, Un mel (SUBLIMAZE 05-24 07-09 Slow IV ity o f (PF)) 04:04: 06:06 Push, [place] injection 41 :00 Q30MIN Medical 50 mcg PRN, 3 Branch doses, Starting on Thu05/23/22 at 2304, Until Discontinu ed, ADAMA, Pain (scale 7-10) FENTanyl PF 2021- No 25ug 25 mcg, Un mel (SUBLIMAZE 03-01 Intramuscu it y of (PF)) 16:45: 16:23 lar, ONCE, [place] injection 00 :00 1 dose, On Medi birdie 25 mcg Sat Branch 03/01/22 at 1145, Routine cyclobenzap No 10mg 10 mg, Uni vers rine 03-01 Oral, ity of (FLEXERIL) 14:00: 12:59 ONCE, 1 [place] tablet 10 00 :00 dose, On Medica l mg Sat Branch 03/01/22 at 0900, Routine HYDROcodone 2021- No 1{tbl} 1 tablet, Univers -acetaminop 03-01 Oral, ity of hen (NORCO 14:00: 12:59 ONCE, 1 [place] 5) 5-325 mg 00 :00 dose, On Medi birdie tablet 1 Sat Branch tablet 03/01/22 at 0900, ADAMA dexamethaso No 10mg 10 mg, Uni vers ne sod phos 03-01 Oral, ity of PF 14:00: 13:00 ONCE, 1 [place] injection 00 :00 dose, On Medica l 10 mg Sat Branch 03/01/22 at 0900, 1 mL cyclobenzap 2021- Yes [id number] 10mg Take 1 Univers rine 10 mg 4-16 tablet by ity of tablet 00:00: mouth 3 [place] 00 (three) Medical times Branch daily as needed for Muscle Spasms. cyclobenzap 2021-0 Yes [id number] 10mg Take 1 Univers rine 10 mg 4-16 tablet by ity of tablet 00:00: mouth 3 [place] 00 (three) Medical times [place] daily as needed for Muscle Spasms. cyclobenzap 2021- No [id number] 10mg Take 1 Univers rine 10 mg 4-16 07-15 tablet by ity of tablet 00:00: 00:00 mouth 3 [place] 00 :00 (three) Medical times [place] daily as needed for Muscle Spasms. aspirin 81 2020-11- No [id number] 81mg Take 1 Univers mg chewable 2-19 -19 tablet by it y of tablet 00:00: 05:59 mouth [place] 00 :00 daily for Medical 30 days. Branch clopidogreL 2020-11- No [id number] 75mg Take 1 Univers 75 mg 2-19 -19 tablet by ity of tablet 00:00: 05:59 mouth [place] 00 :00 daily for Medical 30 days. Branch furosemide 2020-11- No [id number] 20mg Take 1 Univers 20 mg 2-19 -19 tablet by ity of tablet 00:00: 05:59 mouth [place] 00 :00 daily for Medical 30 days. Branch aspirin 81 2020-11- No [id number] 81mg Take 1 Univers mg chewable 2-19 -19 tablet by it y of tablet 00:00: 05:59 mouth [place] 00 :00 daily for Medical 30 days. Branch clopidogreL 2020-11- No [id number] 75mg Take 1 Univers 75 mg 2-19 -19 tablet by ity of tablet 00:00: 05:59 mouth [place] 00 :00 daily for Medical 30 days. Branch furosemide 2020-11- No [id number] 20mg Take 1 Univers 20 mg 2-19 -19 tablet by ity of tablet 00:00: 05:59 mouth [place] 00 :00 daily for Medical 30 days. Branch aspirin 81 2020-11- No [id number] 81mg Take 1 Univers mg chewable 2-19 -19 tablet by it y of tablet 00:00: 05:59 mouth [place] 00 :00 daily for Medical 30 days. Branch clopidogreL 2020-11- No [id number] 75mg Take 1 Univers 75 mg 2-19 -19 tablet by ity of tablet 00:00: 05:59 mouth [place] 00 :00 daily for Medical 30 days. Branch furosemide 2020-112- No [id number] 20mg Take 1 Univers 20 mg 2-19 [...] 2-18 by mouth ity of 18:25: at [place] 21 bedtime. Medical Branch atorvastati 2020-11 Yes 40mg Take 40 mg Univers n 40 mg 2-18 by mouth ity of tablet 18:25: at [place] 21 bedtime. Medical Branch metoprolol 2020-11 Yes [...] Until Discontinu ed, Routine QUEtiapine 2020-11 Yes [id number] 25mg Take 1 Univers 25 mg 2-18 tablet by ity of tablet 00:00: mouth at [place] 00 bedtime as Medical needed Branch (agitation /insomnia) . QUEtiapine 2020-11 Yes [id number] 25mg Take 1 [facility] 25 mg 2-18 tablet by ity of tablet 00:00: mouth at [place] 00 bedtime as Medical needed Branch (agitation /insomnia) . QUEtiapine 2020-11 Yes [id number] 25mg Take 1 [facility] 25 mg 2-18 tablet by ity of tablet 00:00: mouth at [place] [address] bedtime as Medical needed Branch (agitation /insomnia) . QUEtiapine 2020-11 Yes [id number] 25mg Take 1 [facility] 25 mg 2-18 tablet by ity of tablet 00:00: mouth at [place] 00 bedtime as Medical needed Branch (agitation /insomnia) . QUEtiapine 2020-11 Yes [id number] 25mg Take 1 [facility] 25 mg 2-18 tablet by ity of tablet 00:00: mouth at [place] 00 bedtime as Medical needed Branch (agitation /insomnia) . QUEtiapine 2020-11 Yes [id number] 25mg Take 1 [facility] 25 mg 2-18 tablet by ity of tablet 00:00: mouth at [place] 00 bedtime as Medical needed Branch (agitation /insomnia) . QUEtiapine 2020-11 Yes [id number] 25mg Take 1 [facility] 25 mg 2-18 tablet by ity of tablet 00:00: mouth at [place] [address] bedtime as Medical needed Branch (agitation /insomnia) . isosorbide 2020-11- No [id number] 60mg Take 1 [facility] mononitrate 2-18 01-18 tablet by it y of 60 mg 24 hr 00:00: 05:59 mouth 2 [place] tablet 00 :00 (two) Medical times Branch daily for 30 days. metoprolol 2020-11- No [id number] 37.5mg Take 1.5 [facility] succinate 2-18 -18 tablets by ity of XL 25 mg 24 00:00: 05:59 mouth 2 [place] hr tablet 00 :00 (two) Medical times Branch daily for 30 days. isosorbide 2020-11- No [id number] 60mg Take 1 [facility] mononitrate 2-18 01-18 tablet by it y of 60 mg 24 hr 00:00: 05:59 mouth 2 [place] tablet 00 :00 (two) Medical times Branch daily for 30 days. metoprolol 2020-11- No [id number] 37.5mg Take 1.5 [facility] succinate 2-18 01-18 tablets by ity of XL 25 mg 24 00:00: 05:59 mouth 2 [place] hr tablet 00 :00 (two) Medical times Branch daily for 30 days. isosorbide 2020-11- No [id number] 60mg Take 1 [facility] mononitrate 01-03 tablet by it y of 60 mg 24 hr 00:00: 05:59 mouth 2 [place] tablet 00 :00 (two) Medical times [place] daily for 30 days. metoprolol 2020-11- No [id number] 37.5mg Take 1.5 [facility] succinate 01-03 tablets [...] No 25mg 25 mg, Univ ers succinate 01-02 Oral, BID, ity of XL (TOPROL 14:30: 14:17 First dose [place] XL) tablet 00 :36 on [facility] Medical 25 mg 11/01/21 Branch at [...] mg 03:00: First dose [place] 00 on [facility] 10/31/21 Branch at 2100, Until Discontinu ed, Routine atorvastati 2020-11 Yes 40mg 40 mg, Univ ers n (LIPITOR) 2-17 Oral, QHS, it y of tablet 40 03:00: First dose [place] mg 00 on [facility] 10/31/21 Branch at 2100, Until Discontinu ed, Routine clopidogreL 2020-11 Yes 75mg 75 mg, Univ ers (PLAVIX) 01-01 Oral, ity of tablet 75 23:30: DAILY, [place] mg 00 First dose Medical on [facility] Branch 10/31/21 at 1730, Until Discontinu ed, Routine sulfur 2020-11- No [id number] 5mL 5 mL, Unive rs hexafluorid 01-01 Intravenou i ty of e microsphr 17:00: 17:00 s, ONCE, 1 [place] (LUMASON) 00 :00 dose, On Medica l injection 5 [facility] Branch mL 10/31/21 at 1100, Routine
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 Branch 10/31/21 at 0900, Until Discontinu ed, Routine Sliding 2020-11 Yes Subcutaneo [facility] ers Scale - us, AC+HS, ity of Insulin-Reg 13:30: First dose [place] ular + Fsbg 00 on [facility] Medica l Testing 10/31/21 Branch [...] ity of mg 08:45: 08:15 ONCE, 1 [place] 00 :00 dose, On Medical [facility] Branch [...] IV ity of (D50W) 08:16: Push, PRN, [place] injection 14 Starting Medica l 25 mL on [facility] Branch 10/31/21 at 0216, Until Discontinu ed, ADAMA, Blood Glucose < or = 70 mg/dL and patient is unable to swallow or has mental status changes. morpHINE 2020-11 No 2mg 2 mg, Slow Un mel injection 2 -16 1217 IV Push, ity of mg 07:36: 05:31 Q4HPRN, [place] 09 :07 Starting Medical on [place] Branch [...] 2-16 IV Push, ity of (PF)) 05:32: [place], [place] injection 4 10 Starting Medi birdie mg on Thu Branch 10/30/21 at 2332, Until Discontinu ed, Routine, Nausea and Vomiting (N/V) acetaminoph 2020-11 Yes 650mg 650 mg, Un mel en 2-16 Oral, ity of (TYLENOL) 05:31: Q6HPRN, [place] tablet 650 56 Starting Medic al mg [...] ity of mg 23:15: 22:23 ONCE, 1 [place] 00 :00 dose, [facility] Medical 04/25/21 at Branch 1815, STAT acetaminoph 2020- No 1{tbl} 1 tablet, Univers en-codeine 6-10 06-10 Oral, ity of (TYLENOL 19:00: 17:52 ONCE, 1 [place] #3) 300-30 00 :00 dose, [facility] Medi birdie mg tablet 1 04/25/21 at Br anch tablet 1400, ADAMA cyclobenzap 2020- No 10mg 10 mg, Uni vers rine 6-10 06-10 Oral, ONCE ity of (FLEXERIL) 19:00: 17:52 NOW, 1 [place] tablet 10 00 :00 dose, [facility] Medic al mg 04/25/21 at Branch 1400, ADAMA cyclobenzap Yes [id number] 5mg Take 1 Univers rine 5 mg 6-10 tablet by ity o f tablet 00:00: mouth 3 [place] 00 (three) Medical times Branch daily. cyclobenzap 2020-0 Yes [id number] 5mg Take 1 [facility] rine 5 mg 6-10 tablet by ity o f tablet 00:00: mouth 3 [place] 00 (three) Medical times Branch daily. cyclobenzap 2020-0 Yes [id number] 5mg Take 1 [facility] rine 5 mg 6-10 tablet by ity o f tablet 00:00: mouth 3 [place] 00 (three) Medical times Branch daily. cyclobenzap 2021-0 Yes [id number] 5mg Take 1 [facility] rine 5 mg [...] left sided low back pain cyclobenzap Yes [id number] 5mg Take 1 [facility] rine 5 mg [...] pain, left sided low back pain cyclobenzap 2021- No [id number] 5mg Take 1 [facility] rine 5 mg [...] (scale 7-10). Indication s: acute pain acetaminoph Yes [id number] 1{tbl} Take 1 [...] ity of 03:38: 00:00 [place] 54 :00 [facility] Branch MULTIVITAMI 2020-0 Yes Take by Un [...] Discontinu ed, Routine aspirin 81 2020-0 Yes [id number] 81mg Take 1 U nivers mg chewable 5-09 tablet by ity of tablet 00:00: mouth [place] 00 daily with Medical breakfast. Branch furosemide 2020-0 Yes [id number] 20mg Take 1 U nivers 20 mg 5-09 tablet by ity of tablet 00:00: mouth [place] 00 daily. Medical Branch aspirin 81 2020-0 Yes [id number] 81mg Take 1 U nivers mg chewable 5-09 tablet by ity of tablet 00:00: mouth [place] 00 daily with Medical breakfast. Branch furosemide 2020-0 Yes [id number] 20mg Take 1 U nivers 20 mg 5-09 tablet by ity of tablet 00:00: mouth [place] 00 daily. Medical Branch aspirin 81 2020-0 Yes [id number] 81mg Take 1 U nivers mg chewable 5-09 tablet by ity of tablet 00:00: mouth [place] 00 daily with Medical breakfast. Branch furosemide 2020-0 Yes [id number] 20mg Take 1 U nivers 20 mg 5-09 tablet by ity of tablet 00:00: mouth [place] 00 daily. Medical Branch aspirin 81 2020-0 Yes [id number] 81mg Take 1 U nivers mg chewable 5-09 tablet by ity of tablet 00:00: mouth [place] 00 daily with Medical breakfast. Branch furosemide 2020-0 Yes [id number] 20mg Take 1 U nivers 20 mg 5-09 tablet by ity of tablet 00:00: mouth [place] 00 daily. Medical Branch aspirin 81 2020-0 Yes [id number] 81mg Take 1 U nivers mg chewable 5-09 tablet by ity of tablet 00:00: mouth [place] 00 daily with Medical breakfast. Branch furosemide 2020-0 Yes [id number] 20mg Take 1 U nivers 20 mg 5-09 tablet by ity of tablet 00:00: mouth [place] 00 daily. Medical Branch aspirin 81 2020-0 Yes [id number] 81mg Take 1 U nivers mg chewable 5-09 tablet by ity of tablet 00:00: mouth [place] 00 daily with Medical breakfast. Branch furosemide 2020-0 Yes [id number] 20mg Take 1 U nivers 20 mg 5-09 tablet by ity of tablet 00:00: mouth [place] 00 daily. Medical Branch aspirin 81 2020-0 Yes [id number] 81mg Take 1 U nivers mg chewable 5-09 tablet by ity of tablet 00:00: mouth [place] 00 daily with Medical breakfast. Branch furosemide 2020-0 Yes [id number] 20mg Take 1 U nivers 20 mg 5-09 tablet by ity of tablet 00:00: mouth [place] 00 daily. Medical Branch aspirin 81 2020-0 Yes [id number] 81mg Take 1 U nivers mg chewable 5-09 tablet by ity of tablet 00:00: mouth [place] 00 daily with Medical breakfast. Branch furosemide 2020-0 Yes [id number] 20mg Take 1 U nivers 20 mg 5-09 tablet by ity of tablet 00:00: mouth [place] 00 daily. Medical Branch aspirin 81 2020-0 Yes [id number] 81mg Take 1 U nivers mg chewable 5-09 tablet by ity of tablet 00:00: mouth [place] 00 daily with Medical breakfast. Branch furosemide 2020-0 Yes [id number] 20mg Take 1 U nivers 20 mg 5- tablet by ity of tablet 00:00: mouth [place] 00 daily. Medical Branch aspirin 81 2020-0 2020- No [id number] 81mg Take 1 [facility] mg chewable 03-2418 tablet by it y of tablet 00:00: 00:00 mouth [place] 00 :00 daily with Medical breakfast. Branch furosemide 2020-0 2020- No [id number] 20mg Take 1 [facility] 20 mg 03-24- tablet by ity of tablet 00:00: 00:00 mouth [place] 00 :00 daily. Medical Branch isosorbide 2020-0 2020- No [id number] 90mg Take 3 [facility] mononitrate 03-24-08 tablets by i ty of 30 mg 24 hr 00:00: 00:00 mouth [place] tablet 00 :00 daily. Medical Branch isosorbide 2020-0 2020- No [id number] 90mg Take 3 [facility] mononitrate 03-24 05-08 tablets by i ty of 30 mg 24 hr 00:00: 00:00 mouth [place] tablet 00 :00 daily. Medical Branch maalox/lido 2020-0 2020- No 5mL 5 mL, [facility] 2 5- 05-08 Oral, ity of %viscous 20:45: 20:56 ONCE, [place] 1: 00 :00 dose, Fri Medical suspension 03/23/20 at [facility] (COMPOUNDED 1545, ) Routine maalox/lido 2020-0 2020- No 5mL 5 mL, [facility] 2 5- 05-08 Oral, ity of %viscous 20:45: 20:56 ONCE, 1: 00 :00 dose, Fri Medical suspension 03/23/20 at [facility] (COMPOUNDED 1545, ) Routine acetaminoph [...] IV Push, ity of mg 07:59: Q4HPRN, [place] [address] Starting Medical 03/23/20 Branch at 0259, Until Discontinu ed, Routine, Chest pain morpHINE 2020-0 Yes 2mg 2 mg, Slow Uni vers injection 2 03-23 IV Push, ity of mg 07:59: Q4HPRN, [place] [address] Starting Medical 03/23/20 Branch at 0259, Until [...] 2 g, IV Univ ers sulfate in 5-08 05-08 Piggyback, it y of water 2 07:45: 07:49 ONCE, 1 [place] gram/50 mL 00 :00 dose, Fri Medi birdie (4 %) 03/23/20 at [place] infusion 2 0245, g Routine KCL 2020-0 2020- No 40meq 40 mEq, Univers (KLOR-CON 03-23 05-08 Oral, ity of M20) tablet 07:45: [...] mouth. ity of Vitamin D3, 04:01: 00:00 [place] 2,000 unit 03 :00 Medical capsule Branch [...] 08 Oral, ity of (TYLENOL) 02:51: Q6HPRN, [place] tablet 650 29 Starting Medic al mg [facility] 03/22/20 Branch at 2150, Until Discontinu ed, Routine, Pain (scale 1-3) acetaminoph 2020-0 Yes 650mg 650 mg, Un mel en 03-23 Oral, ity of (TYLENOL) 02:51: Q6HPRN, [place] tablet 650 29 Starting Medic al mg [facility] 03/22/20 Branch at 215, Until Discontinu ed, Routine, Pain (scale 1-3) nitroglycer 2020-0 Yes .4mg 0.4 mg, Uni vers in 03-23 Sublingual ity of (NITROSTAT) 02:38: , Q5MIN [place] as sublingual 00 PRN, 3 Medical tablet 0.4 doses, Branch mg Starting [facility] 03/22/20 at 8, Until Discontinu ed, AADMA, Chest pain nitroglycer 2020-0 Yes .4mg 0.4 mg, Uni vers in 03-23 Sublingual ity of (NITROSTAT) 02:38: , Q5MIN [place] sublingual 00 PRN, 3 Medical tablet 0.4 doses, Branch mg Starting [place] 03/22/20 at 8, Until Discontinu ed, ADAMA, Chest pain aspirin 2019-0 2020- No 324mg 324 mg, Unive rs chewable 03-23- Oral, ity of tablet 324 02:37: 02:51 ONCE, 1 [place] mg 00 :00 dose, [facility] 03/22/20 at Branch 2145, ADAMA aspirin 2020-0 2020- No 324mg 324 mg, Unive rs chewable - 05-08 Oral, ity of tablet 324 02:37: 02:51 ONCE, 1 [place] mg 00 :00 dose, [facility] 03/22/20 at Branch 2145, ADAMA isosorbide 2020-0 Yes [id number] 90mg Take 1.5 [facility] mononitrate 5-08 tablets by it y of 60 mg 24 hr 00:00: mouth [place] tablet 00 daily. [facility] isosorbide 2020-0 Yes [id number] 90mg Take 1.5 [facility] mononitrate 5-08 tablets by it y of 60 mg 24 hr 00:00: mouth [place] tablet 00 daily. [facility] isosorbide 2020-0 Yes [id number] 90mg Take 1.5 [facility] mononitrate 5-08 tablets by it y of 60 mg 24 hr 00:00: mouth [place] tablet 00 daily. [facility] isosorbide 2020-0 Yes [id number] 90mg Take 1.5 [facility] mononitrate 5-08 tablets by it y of 60 mg 24 hr 00:00: mouth [place] tablet 00 daily. [facility] isosorbide 2020-0 Yes [id number] 90mg Take 1.5 [facility] mononitrate 5-08 tablets by it y of 60 mg 24 hr 00:00: mouth [place] tablet 00 daily. [facility] Branch isosorbide 2020-0 Yes [id number] 90mg Take 1.5 [facility] mononitrate 5-08 tablets by it y of 60 mg 24 hr 00:00: mouth [place] tablet 00 daily. [facility] Branch isosorbide 2020-0 Yes [id number] 90mg Take 1.5 [facility] mononitrate 5-08 tablets by it y of 60 mg 24 hr 00:00: mouth [place] tablet 00 daily. [facility] Branch isosorbide 2020-0 Yes [id number] 90mg Take 1.5 [facility] mononitrate 5-08 tablets by it y of 60 mg 24 hr 00:00: mouth [place] tablet 00 daily. [facility] isosorbide 2020-0 Yes [id number] 90mg Take 1.5 [facility] mononitrate 5-08 tablets by it y of 60 mg 24 hr 00:00: mouth [place] tablet 00 daily. [facility] isosorbide 2020- No [id number] 90mg Take 1.5 [facility] mononitrate 5- 12-18 tablets by i ty of 60 mg 24 hr 00:00: 00:00 mouth [place] tablet 00 :00 daily. Medical Branch acetaminoph 2019- No [id number] 975mg Take 3 [facility] en 325 mg 5-08 05-19 tablets by ity of tablet 00:00: 04:59 mouth [place] 00 :00 every 8 Medical (eight) Branch hours for 10 days. acetaminoph 2019- No [id number] 975mg Take 3 [facility] en 325 mg 5-08 05-19 tablets by ity of tablet 00:00: 04:59 mouth [place] 00 :00 every 8 Medical (eight) Branch hours for 10 days. acetaminoph No [id number] 975mg Take 3 [facility] en 325 mg 5-08 05-19 tablets by ity of tablet 00:00: 04:59 mouth [place] 00 :00 every 8 Medical (eight) Branch hours for 10 days. acetaminoph No [id number] 975mg Take 3 [facility] en 325 mg 5-08 05-19 tablets by ity of tablet 00:00: 04:59 mouth [place] 00 :00 every 8 Medical (eight) Branch hours for 10 days. acetaminoph 2019- No [id number] 975mg Take 3 [facility] en 325 mg 5-08 05-19 tablets by ity of tablet 00:00: 04:59 mouth [place] 00 :00 every 8 Medical (eight) Branch hours for 10 days. lidocaine 5 2019- No [id number] 1{patch Apply 1 [facility] % (700 5- 05-09 } Patch to ity of mg/patch) 00:00: 04:59 area(s) [place] patch 00 :00 once now Medical for 1 Branch dose. lidocaine 5 2019- No [id number] 1{patch Apply 1 [facility] % (700 5- 05-09 } Patch to ity of mg/patch) 00:00: 04:59 area(s) [place] patch 00 :00 once now Medical for 1 Branch dose. lidocaine 5 2019- No [id number] 1{patch Apply 1 [facility] % (700 5 05-08 } Patch to ity of mg/patch) 00:00: 00:00 area(s) [place] patch 00 :00 once now Medical for 1 Branch dose. lidocaine 5 2020- No [id number] 1{patch Apply 1 [facility] % (700 5-08 [...] Until Discontinu ed, Routine spironolact 2020- No [id number] 12.5mg Take 0.5 Univers one 25 mg 4-23 05-24 tablets by ity of tablet 00:00: 04:59 mouth [place] 00 :00 daily for Medical 30 days. Branch spironolact 2020- No [id number] 12.5mg Take 0.5 Univers one 25 mg 4-23 05-24 tablets by ity of tablet 00:00: 04:59 mouth [place] 00 :00 daily for Medical 30 days. Branch spironolact 2020- No [id number] 12.5mg Take 0.5 [facility] one 25 mg 4-23 05-24 tablets by ity of tablet 00:00: 04:59 mouth [place] 00 :00 daily for Medical 30 days. Branch spironolact 2020- No [id number] 12.5mg Take 0.5 Univers one 25 mg 4-23 05-07 tablets by ity of tablet 00:00: 00:00 mouth [place] 00 :00 daily for Medical 30 days. Branch spironolact 2020- No [id number] 12.5mg Take 0.5 Univers one 25 mg [...] 4-22 mouth. ity of complex and 23:46: [place] C (B 10 Medical COMPLEX-VIT Branch RAZA [...] 4-22 mouth. ity of complex and 23:46: [place] C ( 10 Medical COMPLEX-VIT Branch RAZA C-FOLIC ACID ORAL) Cholecalcif 2020-0 Yes Take by Un mel ann, 4-22 mouth. ity of Vitamin D3, 23:46: [place] 2,000 unit 10 Medical capsule Branch MULTIVITAMI 2020-0 Yes Take by Un mel N ORAL 4-22 mouth. ity of 23:46: [place] [address] Medical Branch thiamine 2020-0 Yes 100mg Take [...] of 12.5 mg 20:15: 00:00 mouth 2 [place] 29 :00 (two) Medical times Branch daily. aspirin 81 2020-0 2020- No 81mg Take 81 mg Univers mg chewable 03-07-22 by mouth ity of tablet 20:15: 00:00 daily. [place] 29 :00 Medical Branch atorvastati 2019-0 2020- No 40mg Take 40 mg Univers n 40 mg 03-07- by mouth ity of tablet 20:15: 00:00 at [place] 29 :00 bedtime. Medical Branch temazepam 2019-0 Yes 15mg 15 mg, Univer s (RESTORIL) 4-22 Oral, ity of capsule 15 01:55: QHSPRN, [place] mg 38 Starting Medical Tue Branch 03/06/20 at 2054, Until Discontinu ed, Routine, Insomnia Insulin 2019-0 Yes [id number] 10U inject 10 [facility] Glargine 4-22 Units ity of 100 unit/mL 00:00: under the [place] (3 mL) 00 skin at Medical injection bedtime. Branch temazepam 2019-0 Yes [id number] 15mg Take 1 Un mel 15 mg 4-22 capsule by ity of capsule 00:00: mouth at [place] 00 bedtime as Medical needed for Branch Insomnia. furosemide 2020-0 Yes [id number] 40mg Take 1 [facility] 40 mg 4-22 tablet by ity of tablet 00:00: mouth [place] 00 every Medical morning Branch and evening. Magnesium 2020-0 Yes [id number] 400mg Take 400 Univers Oxide 420 4-22 mg by ity of mg Tab 00:00: mouth [place] 00 daily. Medical Branch potassium 2020-0 Yes [id number] 20meq Take 20 [facility] chloride 20 4-22 mEq by ity of mEq packet 00:00: mouth [place] 00 daily. Medical Take with Branch lasix in the morning isosorbide 2020-0 Yes [id number] 15mg Take 0.5 [facility] mononitrate 4-22 tablets by it y of 30 mg 24 hr 00:00: mouth [place] tablet 00 daily. Medical Hold if Branch systolic blood pressure less than 120 Insulin 2020-0 Yes [id number] 10U inject 10 [facility] Glargine 4-22 Units ity of 100 unit/mL 00:00: under the [place] (3 mL) 00 skin at Medical injection bedtime. Branch temazepam 2020-0 Yes [id number] 15mg Take 1 Un mel 15 mg 4-22 capsule by ity of capsule 00:00: mouth at [place] 00 bedtime as Medical needed for Branch Insomnia. furosemide 2020-0 Yes [id number] 40mg Take 1 [facility] 40 mg 4-22 tablet by ity of tablet 00:00: mouth [place] 00 every Medical morning Branch and evening. Magnesium 2020-0 Yes [id number] 400mg Take 400 Univers Oxide 420 4-22 mg by ity of mg Tab 00:00: mouth [place] 00 daily. Medical Branch potassium 2020-0 Yes [id number] 20meq Take 20 [facility] chloride 20 4-22 mEq by ity of mEq packet 00:00: mouth [place] 00 daily. Medical Take with Branch lasix in the morning isosorbide 2020-0 Yes [id number] 15mg Take 0.5 [facility] mononitrate 4-22 tablets by it y of 30 mg 24 hr 00:00: mouth [place] tablet 00 daily. Medical Hold if Branch systolic blood pressure less than 120 Insulin 2020-0 Yes [id number] 10U inject 10 [facility] Glargine 4-22 Units ity of 100 unit/mL 00:00: under the [place] (3 mL) 00 skin at Medical injection bedtime. Branch temazepam 2020-0 Yes [id number] 15mg Take 1 Un mel 15 mg 4-22 capsule by ity of capsule 00:00: mouth at [place] 00 bedtime as Medical needed for Branch Insomnia. furosemide 2020-0 Yes [id number] 40mg Take 1 [facility] 40 mg 4-22 tablet by ity of tablet 00:00: mouth [place] 00 every Medical morning Branch and evening. Magnesium 2020-0 Yes [id number] 400mg Take 400 [facility] Oxide 420 4-22 mg by ity of mg Tab 00:00: mouth [place] 00 daily. Medical Branch potassium 2020-0 Yes [id number] 20meq Take 20 [facility] chloride 20 4-22 mEq by ity of mEq packet 00:00: mouth [place] 00 daily. Medical Take with Branch lasix in the morning isosorbide 2020-0 Yes [id number] 15mg Take 0.5 [facility] mononitrate 4-22 tablets by it y of 30 mg 24 hr 00:00: mouth [place] tablet 00 daily. Medical Hold if Branch systolic blood pressure less than 120 Insulin 2020-0 Yes [id number] 10U inject 10 [facility] Glargine 4-22 Units ity of 100 unit/mL 00:00: under the [place] (3 mL) 00 skin at Medical injection bedtime. Branch Magnesium 2020-0 Yes [id number] 400mg Take 400 [facility] Oxide 420 4-22 mg by ity of mg Tab 00:00: mouth [place] 00 daily. Medical Branch vitamin 2020-0 2020- No [id number] 1000ug Take 1 Univers B-12 1,000 4-22 07-22 tablet by ity of mcg tablet 00:00: 04:59 mouth [place] 00 :00 daily for Medical 90 days. Branch vitamin 2020-0 2020- No [id number] 1000ug Take 1 Univers B-12 1,000 4-22 07-22 tablet by ity of mcg tablet 00:00: 04:59 mouth [place] 00 :00 daily for Medical 90 days. Branch vitamin 2020-0 2020- No [id number] 1000ug Take 1 Univers B-12 1,000 4-22 07-22 tablet by ity of mcg tablet 00:00: 04:59 mouth [place] 00 :00 daily for Medical 90 days. Branch vitamin 2019-2019- No [id number] 1000ug Take 1 Univers B-12 1,000 -06 06-22 tablet by ity of mcg tablet 00:00: 04:59 mouth [place] 00 :00 daily for Medical 90 days. Branch glipiZIDE 5 2019- No [id number] 2.5mg Take 0.5 Univers mg tablet 03-07-23 tablets by ity of 00:00: 04:59 mouth 2 [place] 00 :00 (two) Medical times Branch daily before breakfast and dinner for 30 days. metoprolol 2019- No [id number] 25mg Take 1 [facility] succinate - 05-23 tablet by ity of XL 25 mg 24 00:00: 04:59 mouth 2 [place] hr tablet 00 :00 (two) Medical times Branch daily for 30 days. OLANZapine 2019- No [id number] 2.5mg Take 1 Univers 2.5 mg -06 04-23 tablet by ity of tablet 00:00: 04:59 mouth at [place] 00 :00 bedtime Medical for 30 Branch days. ranolazine 2019- No [id number] 1000mg Take 2 Univers 500 mg 12 -06 04-23 tablets by ity of hr tablet 00:00: 04:59 mouth [place] 00 :00 every 12 Medical (twelve) Branch hours for 30 days. aspirin 81 2019- No [id number] 81mg Take 1 Univers mg chewable -06 04-23 tablet by it y of tablet 00:00: 04:59 mouth [place] 00 :00 daily with Medical breakfast Branch for 30 days. atorvastati 2019- No [id number] 40mg Take 1 Univers n 40 mg -06 04-23 tablet by ity of tablet 00:00: 04:59 mouth at [place] 00 :00 bedtime Medical for 30 Branch days. glipiZIDE 5 2020- No [id number] 2.5mg Take 0.5 Univers mg tablet - 05-23 tablets by ity of 00:00: 04:59 mouth 2 [place] 00 :00 (two) Medical times Branch daily before breakfast and dinner for 30 days. metoprolol 2019- No [id number] 25mg Take 1 [facility] succinate 4-22 05-23 tablet by ity of XL 25 mg 24 00:00: 04:59 mouth 2 [place] hr tablet 00 :00 (two) Medical times Branch daily for 30 days. OLANZapine 2020-0 2020- No [id number] 2.5mg Take 1 Univers 2.5 mg 4-22 05-23 tablet by ity of tablet 00:00: 04:59 mouth at [place] 00 :00 bedtime Medical for 30 Branch days. ranolazine 2020-0 2020- No [id number] 1000mg Take 2 Univers 500 mg 12 4-22 05-23 tablets by ity of hr tablet 00:00: 04:59 mouth [place] 00 :00 every 12 Medical (twelve) Branch hours for 30 days. aspirin 81 2020-0 2020- No [id number] 81mg Take 1 [facility] mg chewable 4- 05-23 tablet by it y of tablet 00:00: 04:59 mouth [place] 00 :00 daily with Medical breakfast Branch for 30 days. atorvastati 2020-0 2020- No [id number] 40mg Take 1 Univers n 40 mg - 05-23 tablet by ity of tablet 00:00: 04:59 mouth at [place] 00 :00 bedtime Medical for 30 Branch days. glipiZIDE 5 2020-0 2020- No [id number] 2.5mg Take 0.5 Univers mg tablet 03-07-23 tablets by ity of 00:00: 04:59 mouth 2 [place] 00 :00 (two) Medical times Branch daily before breakfast and dinner for 30 days. metoprolol 2020-0 2020- No [id number] 25mg Take 1 [facility] succinate - 05-23 tablet by ity of XL 25 mg 24 00:00: 04:59 mouth 2 [place] hr tablet 00 :00 (two) Medical times Branch daily for 30 days. OLANZapine 2020-0 2020- No [id number] 2.5mg Take 1 Univers 2.5 mg 4-22 05-23 tablet by ity of tablet 00:00: 04:59 mouth at [place] 00 :00 bedtime Medical for 30 Branch days. ranolazine 2020-0 2020- No [id number] 1000mg Take 2 [facility] 500 mg 12 4-22 05-23 tablets by ity of hr tablet 00:00: 04:59 mouth [place] 00 :00 every 12 Medical (twelve) Branch hours for 30 days. aspirin 81 2020-0 2020- No [id number] 81mg Take 1 [facility] mg chewable - 05-23 tablet by it y of tablet 00:00: 04:59 mouth [place] 00 :00 daily with Medical breakfast Branch for 30 days. atorvastati 2019- No [id number] 40mg Take 1 Univers n 40 mg 4- 05-23 tablet by ity of tablet 00:00: 04:59 mouth at [place] 00 :00 bedtime Medical for 30 Branch days. glipiZIDE 5 2019- No [id number] 2.5mg Take 0.5 [facility] mg tablet 03-07-23 tablets by ity of 00:00: 04:59 mouth 2 [place] 00 :00 (two) Medical times Branch daily before breakfast and dinner for 30 days. metoprolol 2019- No [id number] 25mg Take 1 [facility] succinate 03-07-23 tablet by ity of XL 25 mg 24 00:00: 04:59 mouth 2 [place] [place] tablet 00 :00 (two) Medical times Branch daily for 30 days. ranolazine 2019- No [id number] 1000mg Take 2 [facility] 500 mg 12 -06 04-23 tablets by ity of hr tablet 00:00: 04:59 mouth [place] 00 :00 every 12 Medical (twelve) Branch hours for 30 days. atorvastati 2019- No [id number] 40mg Take 1 [facility] n 40 mg -06 04-23 tablet by ity of tablet 00:00: 04:59 mouth at [place] 00 :00 bedtime Medical for 30 Branch days. furosemide 2019- 2020- No [id number] 40mg Take 1 [facility] 40 mg - 05-08 tablet by ity of tablet 00:00: 00:00 mouth [place] 00 :00 every Medical morning Branch and evening. aspirin 81 2019- 2020- No [id number] 81mg Take 1 [facility] mg chewable - 05-08 tablet by it y of tablet 00:00: 00:00 mouth [place] 00 :00 daily with Medical breakfast Branch for 30 days. isosorbide 2019- 2020- No [id number] 15mg Take 0.5 [facility] mononitrate 4-22 05-08 tablets by i ty of 30 mg 24 hr 00:00: 00:00 [place] 00 :00 daily. Medical Hold if Branch systolic blood pressure less than 120 Insulin 2019- No [id number] 10U inject 10 [facility] Glargine 03-07 05-08 Units ity of 100 unit/mL 00:00: 00:00 under the [place] (3 mL) 00 :00 skin at Medical injection bedtime. Branch glipiZIDE 5 2019- No [id number] 2.5mg Take 0.5 [facility] mg tablet 03-07-08 tablets by ity of 00:00: 00:00 mouth 2 [place] 00 :00 (two) Medical times Branch daily before breakfast and dinner for 30 days. metoprolol 2019- No [id number] 25mg Take 1 [facility] succinate 03-07 05-08 tablet by ity of XL 25 mg 24 00:00: 00:00 mouth 2 [place] tablet 00 :00 (two) Medical times Branch daily for 30 days. ranolazine 2019- No [id number] 1000mg Take 2 [facility] 500 mg 12 03-07 05-08 tablets by ity of hr tablet 00:00: 00:00 mouth [place] 00 :00 every 12 Medical (twelve) Branch hours for 30 days. furosemide 2019- No [id number] 40mg Take 1 [facility] 40 mg 03-07 05-08 tablet by ity of tablet 00:00: 00:00 mouth [place] 00 :00 every Medical morning Branch and evening. aspirin 81 2019- No [id number] 81mg Take 1 [facility] mg chewable 03-07 05-08 tablet by it y of tablet 00:00: 00:00 mouth [place] 00 :00 daily with Medical breakfast Branch for 30 days. atorvastati 2019- No [id number] 40mg Take 1 [facility] n 40 mg 03-07 05-08 tablet by ity of tablet 00:00: 00:00 mouth at [place] 00 :00 bedtime Medical for 30 Branch days. Magnesium 2019- 2020- No [id number] 400mg Take 400 [facility] Oxide 420 03-07 05-08 mg by ity of mg Tab 00:00: 00:00 mouth [place] 00 :00 daily. Medical Branch vitamin 2019- No [id number] 1000ug Take 1 Univers B-12 1,000 -22 05-08 tablet by ity of mcg tablet 00:00: 00:00 mouth [place] 00 :00 daily for Medical 90 days. Branch isosorbide 2019- No [id number] 15mg Take 0.5 [facility] mononitrate 03-07 05-08 tablets by i ty of 30 mg 24 hr 00:00: 00:00 mouth [place] tablet 00 :00 daily. Medical Hold if Branch systolic blood pressure less than 120 OLANZapine 2019- No [id number] 2.5mg Take 1 [facility] 2.5 mg 03-07 05-07 tablet by ity of tablet 00:00: 00:00 mouth at [place] 00 :00 bedtime Medical for 30 Branch days. temazepam 2019- No [id number] 15mg Take 1 U nivers 15 mg 03-07 05-07 capsule by ity of capsule 00:00: 00:00 mouth at [place] 00 :00 bedtime as Medical needed for Branch Insomnia. potassium 2019- No [id number] 20meq Take 20 Univers chloride 20 -22 05-07 mEq by ity o f mEq packet 00:00: 00:00 mouth [place] 00 :00 daily. Medical Take with Branch lasix in the morning OLANZapine 2019- No [id number] 2.5mg Take 1 [facility] 2.5 mg 03-07 05-07 tablet by ity of tablet 00:00: 00:00 mouth at [place] 00 :00 bedtime Medical for 30 Branch days. temazepam 2019- No [id number] 15mg Take 1 U nivers 15 mg 03-07 05-07 capsule by ity of capsule 00:00: 00:00 mouth at [place] 00 :00 bedtime as Medical needed for Branch Insomnia. potassium 2019- No [id number] 20meq Take 20 Univers chloride 20 -22 [...] dose Medi birdie 60 mg on Thu Branch 03/06/20 at 0900, Until Discontinu ed, Routine OLANZapine Yes 2.5mg 2.5 mg, Uni vers (ZyPREXA) 4-21 Oral, QHS, ity of tablet 2.5 02:00: First dose [place] mg 00 on [facility] 03/05/20 at Branch 2100, Until Discontinu ed, Routine insulin 2020-0 Yes 10U 10 Units, Unive rs glargine -21 Subcutaneo ity o f (LANTUS 02:00: us, QHS, [place] U-100) 00 First dose Medical injection on [facility] Branch 10 Units 03/05/20 at 2100, Until Discontinu ed, Routine donepezil 2020-0 Yes 5mg 5 mg, Univers (ARICEPT) 4- Oral, QHS, ity of tablet 5 mg 02:00: First dose [place] 00 on [facility] 03/05/20 at Branch 2100, Until Discontinu ed, Routine atorvastati 2020-0 Yes 40mg 40 mg, Univ ers n (LIPITOR) 4- Oral, QHS, it y of tablet 40 02:00: First dose [place] mg 00 on [facility] 03/05/20 at Branch 2100, Until Discontinu ed, Routine isosorbide 2019-0 2020- No 30mg 30 mg, Univ ers mononitrate 03-05-20 Oral, ity of (IMDUR) 24 15:30: 15:21 ONCE, 1 [place] hr tablet 00 :00 dose, [facility] Medic al 30 mg 03/05/20 at Branch 1030, Routine spironolact 2020-0 Yes 12.5mg 12.5 mg, Univers one 4-20 Oral, ity of (ALDACTONE) 14:00: DAILY, [place] tablet 12.5 00 First dose Me dical mg on [facility] 03/05/20 at 0900, Until Discontinu ed, Routine memantine 2020-0 Yes 10mg 10 mg, Univer s (NAMENDA) 4-20 Oral, ity of tablet 10 14:00: DAILY, [place] mg 00 First dose Medical on [facility] 03/05/20 at 0900, Until Discontinu ed, Routine
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 : MEGADC lisinopril 2020-0 2020- No 5mg 5 mg, Unive rs (PRINIVIL,Z 03-05 04- Oral, ity of ESTRIL) 14:00: 13:44 DAILY, [place] tablet 5 mg 00 :01 First dose Me dical on [facility] 03/05/20 at 0900, Until Discontinu ed, Routine isosorbide 2020-0 2020- No 30mg 30 mg, Univ ers mononitrate - 04-20 Oral, ity of (IMDUR) 24 14:00: 14:20 DAILY, [place] hr tablet 00 :04 First dose Medi birdie 30 mg on [facility] Branch 03/05/20 at 0900, Until Discontinu ed, Routine ranolazine 2020-0 Yes 500mg 500 mg, Uni vers (RANEXA) 12 -20 Oral, ity of hr tablet 13:00: Q12H, [place] 500 mg 00 First dose Medical on [facility] Branch 03/05/20 at 0800, Until Discontinu ed, Routine metoprolol 2020-0 Yes 25mg 25 mg, Unive rs succinate -20 Oral, BID, ity of XL (TOPROL 13:00: First dose [place] XL[place] tablet 00 on [facility] Medical 25 mg 03/05/20 at Branch 0800, Until Discontinu ed, Routine magnesium 2020-0 Yes 400mg 400 mg, Univ ers oxide -20 Oral, BID, ity of (MAG-OX 13:00: First [place] 400[place] tablet 00 on [facility] Medica l 400 mg 03/05/20 at Branch 0800, Until Discontinu ed, Routine aspirin 2020-0 Yes 81mg 81 mg, Univers chewable -20 Oral, QAM ity of tablet 81 13:00: WITH [place] mg 00 BREAKFAST, Medical First dose Branch on [facility] 03/05/20 at 0800, Until Discontinu ed, Routine Sliding 2020-0 Yes Subcutaneo Univ ers Scale -20 us, AC+HS, ity of Insulin-Reg 12:30: First dose [place] ular + Fsbg 00 on [facility] Medica l Testing 03/05/20 at Branch 0730, Until Discontinu ed, Routine glipiZIDE 2020-0 2020- No 5mg 5 mg, Univer s (GLUCOTROL) - 04-22 Oral, ity of tablet 5 mg 12:30: 19:41 BIDAC, [place] 00 :44 First dose Medical on [facility] Branch 03/05/20 at 0730, Until Discontinu ed, [...] IV ity of (D50W) 03:02: Push, PRN, [place] injection 42 Starting Medica l 25 mL [place] Branch 03/04/20 at 2202, Until Discontinu ed, ADAMA, Blood Glucose < or = 70 mg/dL and patient is unable to swallow or has mental status changes. furosemide 2020-0 Yes 40mg 40 mg, Unive rs (LASIX) 4-20 Oral, ity of tablet 40 03:00: QAM+PM, [place] mg 00 First dose Medical on [facility] 03/04/20 at 2200, Until Discontinu ed, Routine cyanocobala 2020-0 Yes 1000ug 1,000 mcg, Univers min -20 Subcutaneo ity of (VITAMIN 03:00: us, Q24H, [place] B12) 00 First dose Medical injection on [facility] 1,000 mcg 03/04/20 at 2200, Until Discontinu ed, Routine heparin 2020-0 Yes 5000U 5,000 Univers (porcine) 4-20 Units, ity of injection 03:00: Subcutaneo [place] 5,000 Units 00 us, Q8H, Medi birdie First dose Branch on [place] 03/04/20 at 2200, Until Discontinu ed, Routine ondansetron 2020-0 Yes 4mg 4 mg, Slow Univers (ZOFRAN 4-20 IV Push, ity of (PF)) 02:34: Q6HPRN, [place] injection 4 40 Starting Medi birdie mg [facility] 03/04/20 at 2133, Until Discontinu ed, Routine, Nausea and Vomiting (N/V) traMADol 2020-0 2020- No 50mg 50 mg, Univer s (ULTRAM) 4-20 04-22 Oral, ity of tablet 50 02:34: 02:33 Q8HPRN, [place] mg 23 :23 Starting Medical [place] [facility] 03/04/20 at 2133, Until 03/06/20 at 2133, Routine, Pain (scale 4-6) acetaminoph 2020-0 Yes 650mg 650 mg, Un mel en 4-20 Oral, ity of (TYLENOL) 02:34: Q6HPRN, [place] tablet 650 20 Starting Medic al mg [place] [facility] 03/04/20 at 2134, Until Discontinu ed, Routine, Pain (scale 1-3) lisinopril 2020-0 Yes [id number] 5mg Take 1 [facility] 5 mg tablet 4-18 tablet by ity of 00:00: mouth [place] 00 daily. Medical Branch isosorbide 2020-0 Yes [id number] 30mg Take 1 [facility] mononitrate 4-18 tablet by ity of 30 mg 24 hr 00:00: mouth [place] tablet 00 daily. Medical Branch lisinopril 2020-0 Yes [id number] 5mg Take 1 [facility] 5 mg tablet 4-18 tablet by ity of 00:00: mouth [place] 00 daily. Medical Branch isosorbide 2020-0 Yes [id number] 30mg Take 1 [facility] mononitrate 4-18 tablet by ity of 30 mg 24 hr 00:00: mouth [place] tablet 00 daily. Medical Branch lisinopril 2020-0 2020- No [id number] 5mg Take 1 [facility] 5 mg tablet 4-18 04-22 tablet by it y of 00:00: 00:00 mouth [place] 00 :00 daily. Medical Branch isosorbide 2020-0 2020- No [id number] 30mg Take 1 [facility] mononitrate 4-18 04-22 [...] ity of 12.5 mg 17:34: mouth 2 [place] [address] (two) Medical times Branch daily. MULTIVITAMI 2020-0 Yes Take by Un mel N ORAL 4-17 mouth. ity of 17:34: [place] [address] Medical Branch thiamine 2020-0 Yes 100mg Take 100 Univ ers (VITAMIN 4-17 mg by ity of B-1) 100 mg 17:34: mouth [place] tablet 27 daily. Medical Branch aspirin 81 2020-0 Yes 81mg Take 81 mg U nivers mg chewable 4-17 by mouth ity of tablet 17:34: daily. [place] [address] Medical Branch atorvastati 2020-0 Yes 40mg Take 40 mg Univers n 40 mg 4-17 by mouth ity of tablet 17:34: at [place] [address] bedtime. Medical Branch NaCl 0.9% 2020-0 Yes [...] 4-17 mouth. ity of complex and 17:34: [place] C ([facility] Medical COMPLEX-VIT Branch RAZA C-FOLIC ACID ORAL) Cholecalcif 2020-0 Yes Take by Un mel ann, 4-17 mouth. ity of Vitamin D3, 17:34: [place] 2,000 unit 27 Medical capsule Branch metoprolol 2020-0 Yes 12.5mg Take 12.5 Univers tartrate 4-17 mg by ity of 12.5 mg 17:34: mouth 2 [place] [address] (two) Medical times Branch daily. MULTIVITAMI 2020-0 Yes Take by Un mel N ORAL 4-17 mouth. ity of 17:34: [place] [address] Medical Branch thiamine 2020-0 Yes 100mg Take 100 Univ ers (VITAMIN 4-17 mg by ity of B-1) 100 mg 17:34: mouth [place] tablet 27 daily. Medical Branch aspirin 81 2020-0 Yes 81mg Take 81 mg U nivers mg chewable 4-17 by mouth ity of tablet 17:34: daily. [place] [address] Medical Branch atorvastati 2020-0 Yes 40mg Take 40 mg Univers n 40 mg 4-17 by mouth ity of tablet 17:34: at [place] [address] bedtime. Medical Branch NaCl 0.9% 2020-0 Yes [...] Until Discontinu ed, Routine furosemide 2020-0 Yes [id number] 40mg Take 1 [facility] 40 mg 4-17 tablet by ity of tablet 00:00: mouth [place] 00 every Medical morning Branch and evening. potassium 2020-0 Yes [id number] 20meq Take 20 Univers chloride 20 4-17 mEq by ity of mEq packet 00:00: mouth [place] 00 daily. Medical Branch vitamin 2020-0 Yes [id number] 1000ug Take 1 U nivers B-12 1,000 4-17 tablet by ity of mcg tablet 00:00: mouth [place] 00 daily. Medical Branch furosemide 2020-0 Yes [id number] 40mg Take 1 [facility] 40 mg 4-17 tablet by ity of tablet 00:00: mouth [place] 00 every Medical morning Branch and evening. potassium 2020-0 Yes [id number] 20meq Take 20 Univers chloride 20 4-17 mEq by ity of mEq packet 00:00: mouth [place] 00 daily. Medical Branch vitamin 2020-0 Yes [id number] 1000ug Take 1 U nivers B-12 1,000 4-17 tablet by ity of mcg tablet 00:00: mouth [place] 00 daily. Medical Branch furosemide 2020-0 2020- No [id number] 40mg Take 1 [facility] 40 mg 4-17 04-22 tablet by ity of tablet 00:00: 00:00 mouth [place] 00 :00 every Medical morning Branch and evening. potassium 2020-0 2020- No [id number] 20meq Take 20 Univers chloride 20 4-17 04-22 mEq by ity o f mEq packet 00:00: 00:00 mouth [place] 00 :00 daily. Medical Branch vitamin 2020-0 2020- No [id number] 1000ug Take 1 Univers B-12 1,000 4-17 04-22 tablet by ity of mcg tablet 00:00: 00:00 mouth [place] 00 :00 daily. Medical Branch cyanocobala 2020-0 Yes 1000ug 1,000 mcg, Univers min 4-16 Subcutaneo ity of (VITAMIN 20:45: us, Q24H, [place] B12) 00 First dose Medical injection on [facility] Branch 1,000 mcg 03/01/20 at 1545, Until Discontinu ed, Routine isosorbide 2020-0 Yes 30mg 30 mg, Unive rs mononitrate 4-16 Oral, ity of (IMDUR) 24 14:00: DAILY, [place] hr tablet 00 First dose Medi birdie 30 mg on [facility] Branch 03/01/20 at 0900, Until Discontinu ed, Routine memantine 2020-0 Yes 10mg 10 mg, Univer s (NAMENDA) 4-16 Oral, ity of tablet 10 14:00: DAILY, [place] mg 00 First dose Medical on [facility] Branch 03/01/20 at 0900, Until Discontinu ed, Routine
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 Branch 03/01/20 at 0900, Until Discontinu ed, Routine enoxaparin 2020-0 Yes 30mg 30 mg, Unive rs (LOVENOX) 4-16 Subcutaneo ity of injection 14:00: [place], DAILY, [place] 30 mg 00 First dose Medical on [facility] Branch 03/01/20 at 0900, Until Discontinu ed, Routine KCL 2020-0 2020- No 20meq 20 mEq, Univers (KLOR-CON 4-16 04-16 Oral, ity of M20) tablet 14:00: 13:26 DAILY, [place] 20 mEq 00 :35 First dose Medical on [facility] 03/01/20 at 0900, Until Discontinu ed, Routine KCL 2020-0 Yes 40meq 40 mEq, Univers (KLOR-CON -16 Oral, BID, ity of M20) tablet 13:30: First dose [place] 40 mEq 00 on [facility] 03/01/20 at Branch 0830, Until Discontinu ed, Routine magnesium 2020-0 2020- No 2g 2 g, IV Univ ers sulfate in 03-01 Infusion, ity of water 2 03:30: 03:30 ONCE, 1 [place] gram/50 mL 00 :00 dose, Thu [facility] birdie (4 %) 2 g 02/29/20 at [facility] piggyback 2230 metoprolol 2020-0 2020- No 5mg 5 mg, Slow Univers (LOPRESSOR) 03-01 IV Push, ity of injection 5 03:30: 03:37 ONCE, 1 [place] mg 00 :00 dose, [facility] 02/29/20 at Branch 2230, ADAMA glipiZIDE 2020-0 Yes 5mg 5 mg, Univers (GLUCOTROL) 03-01 Oral, ity of tablet 5 mg 02:45: BIDAC, [place] 00 First dose Medical on Thu [place] 02/29/20 at 2145, Until Discontinu ed, Routine insulin 2020-0 Yes 10U 10 Units, Unive rs glargine 03-01 Subcutaneo ity o f (LANTUS 02:45: us, QHS, [place] U-100) 00 First dose Medical injection on Thu Branch 10 Units 02/29/20 at 2145, Until Discontinu ed, Routine OLANZapine 2020-0 Yes 2.5mg 2.5 mg, Uni vers (ZyPREXA) -16 Oral, QHS, ity of tablet 2.5 02:45: First dose [place] mg 00 on [facility] 02/29/20 at Branch 2145, Until Discontinu ed, Routine ranolazine 2020-0 Yes 500mg 500 mg, Uni vers (RANEXA) 12 03-01 Oral, ity of hr tablet 02:30: Q12H, [place] 500 mg 00 First dose Medical on [facility] 02/29/20 at 2130, Until Discontinu ed, Routine spironolact 2020-0 Yes 12.5mg 12.5 mg, Univers one 4-16 Oral, ity of (ALDACTONE) 02:30: DAILY, [place] tablet 12.5 00 First dose Me dical mg on Thu02/29/20 at 2130, Until Discontinu [...] [place] 40 mEq 00 :00 dose, [facility] Medical 02/29/20 at Branch 2000, Routine acetaminoph 2020-0 Yes 650mg 650 mg, Un mel en 4-15 Oral, ity of (TYLENOL) 23:57: Q6HPRN, [place] tablet 650 25 Starting Medic al mg [facility] 02/29/20 at 1857, Until Discontinu [...] of 00:00: daily. Medical Branch donepezil 5 2019- No 5mg Take 5 mg Univers mg tablet 02-14 by mouth ity o f 00:00: 00:00 daily. [place] 00 :00 Medical Branch nitroglycer 2019- No [...] Cholecalcif 2020-0 Yes Take by Un mel nan, 3-03 mouth. ity of Vitamin D3, 23:00: [place] 2,000 unit 52 Medical capsule Branch metoprolol 2020-0 Yes 12.5mg Take 12.5 Univers tartrate 3-03 mg by ity of 12.5 mg 23:00: mouth 2 [place] 52 (two) Medical times Branch daily. MULTIVITAMI 2020-0 Yes Take by Un mel N ORAL 3-03 mouth. ity of 23:00: [place] [address] Medical Branch thiamine 2020-0 Yes 100mg Take 100 Univ ers (VITAMIN 3-03 mg by ity of B-1) 100 mg 23:00: mouth [place] tablet 52 daily. Medical Branch aspirin 81 2020-0 Yes 81mg Take 81 mg U nivers mg chewable 3-03 by mouth ity of tablet 23:00: daily. [place] [address] Medical Branch atorvastati 2020-0 Yes 40mg Take 40 mg Univers n 40 mg 3-03 by mouth ity of tablet 23:00: at [place] 52 bedtime. Medical Branch NaCl 0.9% 2020-0 [...] N ORAL 3-03 mouth. ity of 23:00: [place] 52 Medical Branch thiamine 2020-0 Yes 100mg Take 100 Univ ers (VITAMIN 3-03 mg by ity of B-1) 100 mg 23:00: mouth [place] tablet 52 daily. Medical Branch aspirin 81 2020-0 Yes 81mg Take 81 mg U nivers mg chewable 3-03 by mouth ity of tablet 23:00: daily. [place] [address] Medical Branch atorvastati 2020-0 Yes 40mg Take 40 mg Univers n 40 mg 3-03 by mouth ity of tablet 23:00: at [place] [address] bedtime. Medical Branch NaCl 0.9% 2020-0 Yes [...] ity of 12.5 mg 23:00: mouth 2 [place] [address] (two) Medical times Branch daily. MULTIVITAMI 2020-0 Yes Take by Un mel N ORAL 3-03 mouth. ity of 23:00: [place] [address] Medical Branch thiamine 2020-0 Yes 100mg Take 100 Univ ers (VITAMIN 3-03 mg by ity of B-1) 100 mg 23:00: mouth [place] tablet 52 daily. Medical Branch aspirin 81 2020-0 Yes 81mg Take 81 mg U nivers mg chewable 3-03 by mouth ity of tablet 23:00: daily. [place] [address] Medical Branch atorvastati 2020-0 Yes 40mg Take 40 mg Univers n 40 mg 3-03 by mouth ity of tablet 23:00: at [place] [address] bedtime. Medical Branch NaCl 0.9% 2020-0 Yes [...] and 23:00: [place] C ([facility] Medical COMPLEX-VIT Branch RAZA C-FOLIC ACID ORAL) potassium 2020-0 Yes 20meq Take 20 Univ ers chloride 20 3-03 mEq by ity of mEq packet 23:00: mouth [place] 52 daily. Medical Branch Cholecalcif 2020-0 Yes Take by Un mel ann, 3-03 mouth. ity of Vitamin D3, 23:00: [place] 2,000 unit 52 Medical capsule Branch metoprolol 2020-0 Yes 12.5mg Take 12.5 Univers tartrate 3-03 mg by ity of 12.5 mg 23:00: mouth 2 [place] [address] (two) Medical times Branch daily. MULTIVITAMI 2020-0 Yes Take by Un mel N ORAL 3-03 mouth. ity of 23:00: [place] [address] Medical Branch thiamine 2020-0 Yes 100mg Take 100 Univ ers (VITAMIN 3-03 mg by ity of B-1) 100 mg 23:00: mouth [place] tablet 52 daily. Medical Branch aspirin 81 2020-0 Yes 81mg Take 81 mg U nivers mg chewable 3-03 by mouth ity of tablet 23:00: daily. [place] 52 Medical Branch atorvastati 2020-0 Yes 40mg Take 40 mg Univers n 40 mg 3-03 by mouth ity of tablet 23:00: at [place] [address] bedtime. Medical Branch NaCl 0.9% 2019-0 Yes [...] dose [place] mg 00 on [facility] 01/16/20 at Branch 2100, Until Discontinu ed, Routine ranolazine 2020-0 2020- No [id number] 500mg Take 1 [facility] 500 mg 12 01-16- tablet by ity of hr tablet 00:00: 04:59 mouth [place] 00 :00 every 12 Medical (twelve) Branch hours for 30 days. ranolazine 2020-0 2020- No [id number] 500mg Take 1 [facility] 500 mg 01-16 04-03 tablet by ity of hr tablet 00:00: 04:59 mouth [place] 00 :00 every 12 Medical (twelve) Branch hours for 30 days. ranolazine 2020-0 2020- No [id number] 500mg Take 1 [facility] 500 mg 01-16 04-03 tablet by ity of hr tablet 00:00: 04:59 mouth [place] 00 :00 every 12 Medical (twelve) Branch hours for 30 days. ranolazine 2020-0 2020- No [id number] 500mg Take 1 [facility] 500 mg 01-16 04-03 tablet by ity of hr tablet 00:00: 04:59 mouth [place] 00 :00 every 12 Medical (twelve) Branch hours for 30 days. ranolazine 2020-0 Yes 500mg 500 mg, Uni vers (RANEXA) 12 3-02 Oral, ity of hr tablet 22:30: Q12H, [place] 500 mg 00 First dose Medical on [facility] 01/16/20 at 1630, Until Discontinu ed, Routine insulin 2020-0 Yes 30U 30 Units, Unive rs glargine 3-02 Subcutaneo ity o f (LANTUS 15:00: [place], DAILY, [place] U-100) 00 First dose Medical injection on [facility] 30 Units 01/16/20 at 0900, Until Discontinu ed furosemide 2020-0 Yes 40mg 40 mg, Unive rs (LASIX) 3-02 Oral, ity of tablet 40 15:00: DAILY, [place] mg 00 First dose Medical on [facility] 01/16/20 at 0900, Until Discontinu ed, Routine aspirin 2020-0 Yes 81mg 81 mg, Univers chewable 01-15 Oral, ity of tablet 81 15:00: DAILY, [place] mg 00 First dose Medical on [facility] 01/16/20 at 0900, Until Discontinu ed, Routine metoprolol 2020-0 Yes 12.5mg 12.5 mg, U nivers tartrate 01-15 Oral, BID, ity o f (LOPRESSOR) 14:00: First dose [place] tablet 12.5 00 on [facility] Medica l mg 01/16/20 at Branch 0800, Until Discontinu ed, Routine Sliding 2020-0 Yes Subcutaneo Univ ers Scale 3-02 us, Q6H, ity of Insulin-Reg 12:00: First dose [place] ular + Fsbg 00 on [facility] Medica l Testing 01/16/20 at Branch 0600, [...] injection 33 Starting Medica l 25 mL [facility] 01/16/20 Branch at 0452, Until Discontinu ed, [...] IV Push, ity of (PF)) 07:55: Q6HPRN, [place] injection 4 01 Starting Medi birdie mg 01/16/20 Branch at 0155, Until Discontinu ed, Routine, Nausea and Vomiting (N/V) morpHINE 2019-0 2020- No 2mg 2 mg, Slow Un mel injection 2 01-15 03-03 IV Push, ity of mg 07:54: 07:53 Q6HPRN, [place] 55 :55 Starting Medical 01/16/20 Branch at 0154, Until 01/17/20 at 0153, Routine, Pain (scale 7-10) traMADol 2019-0 2020- No 50mg 50 mg, Univer s (ULTRAM) 01-15 03-04 Oral, ity of tablet 50 07:54: 07:[facility] Medical 01/16/20 Branch at 0154, Until Thu01/18/20 at 0153, Routine, Pain (scale 4-6) acetaminoph 2019-0 Yes 650mg 650 mg, Un mel en 01-15 Oral, ity of (TYLENOL) 07:54: [facility] [place] tablet 650 44 Starting Medic al mg 01/16/20 Branch at 0154, Until Discontinu ed, Routine, Pain (scale 1-3) insulin 2020-0 2020- No 8U 8 Units, Unive rs regular 01-15 03- Slow IV ity of human 06:45: 05:40 Push, [place] (HUMULIN R) 00 :00 ONCE, 1 Medic al injection 8 dose, Mon [facility] Units 01/16/20 at 0045, STAT heparin 2020-0 Yes 1000U/h 1,000 Univer s 25,000 3-02 Units/hr ity of unit/250 mL 06:00: (10 [place] (Premixed 00 mL/hr), IV Medi birdie Bag) in Infusion, Branch NaCl 0.45 % CONTINUOUS weight , Starting based 01/16/20 dosing [facility] at 0000, protocol Until Discontinu ed heparin 2020- No 4000U 4,000 Univers 1000 01-15 03-02 Units, IV ity of unit/mL 05:45: 05:47 Push, [place] injection 00 :00 ONCE, 1 Medical Soln 4,000 dose, [facility] Units 01/15/20 at 2345, ADAMA furosemide 2018-11 Yes [id number] 40mg Take 1 [facility] 40 mg 0-26 tablet by ity of tablet 00:00: mouth [place] 00 daily. Medical Branch furosemide 2018-11 Yes [id number] 40mg Take 1 [facility] 40 mg 0-26 tablet by ity of tablet 00:00: mouth [place] 00 daily. Medical Branch furosemide 2018-11 Yes [id number] 40mg Take 1 [facility] 40 mg 0-26 tablet by ity of tablet 00:00: mouth [place] 00 daily. Medical Branch furosemide 2018-11 Yes [id number] 40mg Take 1 [facility] 40 mg 0-26 tablet by ity of tablet 00:00: mouth [place] 00 daily. Medical Branch furosemide 2018-11 2020- No [id number] 40mg Take 1 [facility] 40 mg 0-26 04-17 tablet by ity of tablet 00:00: 00:00 mouth [place] 00 :00 daily. Medical Branch magnesium 2018-11 Yes [id number] 400mg Take 400 Univers oxide 420 0-23 mg by ity of mg Tab 00:00: mouth [place] 00 daily. Medical Branch magnesium 2018-11 Yes [id number] 400mg Take 400 Univers oxide 420 0-23 mg by ity of mg Tab 00:00: mouth [place] 00 daily. Medical Branch magnesium 2018-11 Yes [id number] 400mg Take 400 Univers oxide 420 0-23 mg by ity of mg Tab 00:00: mouth [place] 00 daily. Medical Branch magnesium 2018- Yes [id number] 400mg Take 400 Univers oxide 420 0-23 mg by ity of mg Tab 00:00: mouth [place] 00 daily. Medical Branch magnesium 2018-11 Yes [id number] 400mg Take 400 Univers oxide 420 0-23 mg by ity of mg Tab 00:00: mouth [place] 00 daily. Medical Branch magnesium 2018- Yes [id number] 400mg Take 400 Univers oxide 420 0-23 mg by ity of mg Tab 00:00: mouth [place] 00 daily. Medical Branch magnesium 2018- 2020- No [id number] 400mg Take 400 Univers oxide 420 0-23 04-22 mg by ity of mg Tab 00:00: 00:00 mouth [place] 00 :00 daily. Medical Branch Insulin 2018- Yes [id number] 30U inject 30 Univers Glargine 9-11 Units ity of 100 unit/mL 00:00: under the [place] (3 mL) 00 skin every Medical injection morning. Branch Insulin Yes [id number] 30U inject 30 Univers Glargine 9-11 Units ity of 100 unit/mL 00:00: under the [place] (3 mL) 00 skin every Medical injection morning. Branch Insulin Yes [id number] 30U inject 30 Univers Glargine 9-11 Units ity of 100 unit/mL 00:00: under the [place] (3 mL) 00 skin every Medical injection morning. Branch Insulin Yes [id number] 30U inject 30 Univers Glargine 9-11 Units ity of 100 unit/mL 00:00: under the [place] (3 mL) 00 skin every Medical injection morning. Branch Insulin 2018- Yes [id number] 30U inject 30 Univers Glargine 9-11 Units ity of 100 unit/mL 00:00: under the [place] (3 mL) 00 skin every Medical injection morning. Branch Insulin 2018- Yes [id number] 30U inject 30 Univers Glargine 9-11 Units ity of 100 unit/mL 00:00: under the [place] (3 mL) 00 skin every Medical injection morning. Branch Insulin Yes [id number] 30U inject 30 Univers Glargine 9-11 Units ity of 100 unit/mL 00:00: under the [place] (3 mL) 00 skin every Medical injection morning. Branch Insulin 2018-0 2020- No [id number] 30U inject 30 Univers Glargine 9-11 04-22 Units ity of 100 unit/mL 00:00: 00:00 under the [place] (3 mL) 00 :00 skin every Medical injection morning. [place] memantine-d 2018- Yes 1{capsu Take 1 U nivers onepezil 5-10 le} capsule by ity o f (NAMZARIC) 15:26: mouth [place] 28-10 mg 43 daily. Medical CSpX Branch enoxaparin 0 Yes 30mg inject 30 Un mel injection 5-10 mg under ity of 15:26: the skin. [place] [address] Medical Branch Cholecalcif 0 Yes Take by Un mel ann, 5-10 mouth. ity of Vitamin D3, 15:26: [place] 2,000 unit Medical capsule Branch metoprolol 0 Yes 12.5mg Take 12.5 Univers tartrate 5-10 mg by ity of 12.5 mg 15:26: mouth 2 [place] 43 (two) Medical times Branch daily. MULTIVITAMI 0 Yes Take by Un mel N ORAL 5-10 mouth. ity of 15:26: [place] [address] Medical Branch thiamine 0 Yes 100mg Take 100 Univ ers (VITAMIN 5-10 mg by ity of B-1) 100 mg 15:26: mouth [place] tablet 43 daily. Medical Branch aspirin 81 0 Yes 81mg Take 81 mg U nivers mg chewable 5-10 by mouth ity of tablet 15:26: daily. [place] [address] Medical Branch atorvastati 0 Yes 40mg Take 40 mg Univers n 40 mg 5-10 by mouth ity of tablet 15:26: at [place] 43 bedtime. Medical Branch furosemide 0 Yes 40mg Take 40 mg U nivers 40 mg 5-10 by mouth ity of tablet 15:26: daily. [place] [address] Medical Branch NaCl 0.9% 0 Yes 10mL [...] mg under ity of 15:26: the skin. [place] [address] Medical Branch Cholecalcif 0 Yes Take by Un mel ann, 5-10 mouth. ity of Vitamin D3, 15:26: [place] 2,000 unit 43 Medical capsule Branch metoprolol 2018-0 Yes 12.5mg Take 12.5 Univers tartrate 5-10 mg by ity of 12.5 mg 15:26: mouth 2 [place] 43 (two) Medical times Branch daily. MULTIVITAMI 0 Yes Take by Un mel N ORAL 5-10 mouth. ity of 15:26: [place] [address] Medical Branch thiamine 0 Yes 100mg Take 100 Univ ers (VITAMIN 5-10 mg by ity of B-1) 100 mg 15:26: mouth [place] tablet 43 daily. Medical Branch aspirin 81 2018-0 Yes 81mg Take 81 mg U nivers mg chewable 5-10 by mouth ity of tablet 15:26: daily. [place] [address] Medical Branch atorvastati 0 Yes 40mg Take 40 mg Univers n 40 mg 5-10 by mouth ity of tablet 15:26: at [place] 43 bedtime. Medical Branch furosemide 0 Yes 40mg Take 40 mg U nivers 40 mg 5-10 by mouth ity of tablet 15:26: daily. [place] [address] Medical Branch NaCl 0.9% 0 Yes 10mL Inject 10 Uni vers (NS) Soln 5-10 mL ity of 10 mL with 15:26: intravenou [place] sodium 43 sly once Medical chloride now. Branch 2.5 mEq/mL SolP 17.125 mEq insulin Yes [id number] 4U inject 4 U nivers lispro, 5-10 Units ity of human, 100 00:00: under the [place] unit/mL 00 skin 3 Medical injection (three) Branch times daily before meals. insulin Yes [id number] 4U inject 4 U nivers lispro, 5-10 Units ity of human, 100 00:00: under the [place] unit/mL 00 skin 3 Medical injection (three) Branch times daily before meals. insulin 2018-0 Yes [id number] 4U inject 4 U nivers lispro, 5-10 Units ity of human, 100 00:00: under the [place] unit/mL 00 skin 3 Medical injection (three) Branch times daily before meals. insulin 2018- Yes [id number] 4U inject 4 U nivers lispro, 5-10 Units ity of human, 100 00:00: under the [place] unit/mL 00 skin 3 Medical injection (three) Branch times daily before meals. insulin 2019-0 Yes [id number] 4U inject 4 U nivers lispro, 5-10 Units ity of human, 100 00:00: under the [place] unit/mL 00 skin 3 Medical injection (three) Branch times daily before meals. insulin 2018-0 Yes [id number] 4U inject 4 U nivers lispro, 5-10 Units ity of human, 100 00:00: under the [place] unit/mL 00 skin 3 Medical injection (three) Branch times daily before meals. Insulin 2018-0 Yes [id number] 18U inject Uni vers Glargine 5-10 18-24 ity of 100 unit/mL 00:00: Units [place] (3 mL) 00 under the Medical injection skin every Bran ch morning. insulin 2018-0 Yes [id number] 4U inject 4 U nivers lispro, 5-10 Units ity of human, 100 00:00: under the [place] unit/mL 00 skin 3 Medical injection (three) Branch times daily before meals. insulin 2018-0 Yes [id number] 4U inject 4 U nivers lispro, 5-10 Units ity of human, 100 00:00: under the [place] unit/mL 00 skin 3 Medical injection (three) Branch times daily before meals. insulin 2018-0 Yes [id number] 4U inject 4 U nivers lispro, 5-10 Units ity of human, 100 00:00: under the [place] unit/mL 00 skin 3 Medical injection (three) Branch times daily before meals. insulin 2018-0 Yes [id number] 4U inject 4 U nivers lispro, 5-10 Units ity of human, 100 00:00: under the [place] unit/mL 00 skin 3 Medical injection (three) Branch times daily before meals. insulin 2019-0 Yes [id number] 4U inject 4 U nivers lispro, 5-10 Units ity of human, 100 00:00: under the [place] unit/mL 00 skin 3 Medical injection (three) Branch times daily before meals. insulin 2020- No [id number] 4U inject 4 Univers lispro, 5-10 05-07 Units ity of human, 100 00:00: 00:00 under the [place] unit/mL 00 :00 skin 3 Medical injection (three) Branch times daily before meals. insulin 2020- No [id number] 4U inject 4 Univers lispro, 510 05-07 Units ity of human, 100 00:00: 00:00 under the [place] unit/mL 00 :00 skin 3 Medical injection (three) Branch times daily before meals. Insulin 2019- No [id number] 18U inject Un mel Glargine 03-25 09-11 18-24 ity of 100 unit/mL 00:00: 00:00 [place] (3 mL) 00 :00 under the Medical injection skin every Bran ch morning. folic Yes Take by Univers acid/vit B 3-08 mouth. ity of complex and 16:39: [place] C (Located Within [facility] Medical COMPLEX-VIT Branch RAZA C-FOLIC ACID ORAL) potassium Yes 20meq Take 20 Univ ers chloride 20 3-08 mEq by ity of mEq packet 16:39: mouth [place] 29 daily. Medical Branch folic Yes Take by Univers acid/vit B 3-08 mouth. ity of complex and 16:39: [place] C (Loc[facility] Medical COMPLEX-VIT Branch RAZA C-FOLIC ACID ORAL) potassium Yes 20meq Take 20 Univ ers chloride 20 3-08 mEq by ity of mEq packet 16:39: mouth [place] 29 daily. Medical Branch Potassium Potassium Yes Anneliese 1 capsule Common Chloride Chloride [place] with food [facility] Tylenol # 3 Tylenol # 3 Yes Anneliese one tab Common Millender [facility] Vitamin D-3 Vitamin D-3 Yes Anneliese 2 capsule Common Millender [facility] Humalog Humalog Yes Anneliese as Common [place] directed [facility] Aspir-Low Aspir-Low Yes Anneliese 1 tablet Common Millender [facility] Namzaric Namzaric Yes Anneliese 1 Common Millender [facility] Zyprexa Zyprexa Yes Anneliese 1 tablet Comm on [facility] Vitamin B-1 Vitamin B-1 Yes [facility] Multivitami Multivitami Yes Anneliese as Common n n [place] directed [facility] Lantus Lantus Yes Anneliese as Common [place] directed [facility] Lasix Lasix Yes Anneliese 1 tablet Common Millender [facility] Isosorbide Isosorbide Yes Anneliese 1 tablet Common Mononitrate Mononitrate [facility] in the [facility] Lyrica Lyrica Yes Anneliese 1 capsule Commo n Millender [facility] Immunizations Ordered Filled Immunization Date Status Comments [facility] e Immunization Name Name SARS-COV-2 COVID-19 2021-09-16 Completed Unive rsity of [facility]ERNA VACCINE 00:00:00 [facility] SARS-COV-2 COVID-19 2021-09-16 Completed Unive rsity of MODERNA VACCINE 00:00:00 [facility] SARS-COV-2 COVID-19 2021-09-16 Completed Unive rsity of MODERNA VACCINE 00:00:00 [facility] SARS-COV-2 COVID-19 2021-09-16 Completed Unive rsity of MODERNA VACCINE 00:00:00 [facility] SARS-COV-2 COVID-19 2021-09-16 Completed Unive rsity of MODERNA VACCINE 00:00:00 [facility] SARS-COV-2 COVID-19 2021-09-16 Completed Unive rsity of MODERNA VACCINE 00:00:00 [facility] SARS-COV-2 COVID-19 2021-09-16 Completed Unive rsity of MODERNA VACCINE 00:00:00 [facility] SARS-COV-2 COVID-19 2021-08-17 Completed Unive rsity of MODERNA VACCINE 00:00:00 [facility] Influenza High Dose 2021-08-17 Completed Unive rsity of 00:00:00 [facility] SARS-COV-2 COVID-19 2021-08-17 Completed Unive rsity of MODERNA VACCINE 00:00:00 [facility] Influenza High Dose 2021-08-17 Completed Unive rsity of 00:00:00 [facility] SARS-COV-2 COVID-19 2021-08-17 Completed Unive rsity of MODERNA VACCINE 00:00:00 [facility] Influenza High Dose 2021-08-17 Completed Unive rsity of 00:00:00 [facility] SARS-COV-2 COVID-19 2021-08-17 Completed Unive rsity of MODERNA VACCINE 00:00:00 [facility] Influenza High Dose 2021-08-17 Completed Unive rsity of 00:00:00 [facility] SARS-COV-2 COVID-19 2021-08-17 Completed Unive rsity of MODERNA VACCINE 00:00:00 [facility] Influenza High Dose 2021-08-17 Completed Unive rsity of 00:00:00 [facility] SARS-COV-2 COVID-19 2021-08-17 Completed Unive rsity of MODERNA VACCINE 00:00:00 [facility] Influenza High Dose 2021-08-17 Completed Unive rsity of 00:00:00 [facility] SARS-COV-2 COVID-19 2021-08-17 Completed Unive rsity of MODERNA VACCINE 00:00:00 [facility] Influenza High Dose 2021-08-17 Completed Unive rsity of 00:00:00 [facility] Zoster(Zostavax)( 2020-09-14 Completed Unive rsity of ingles) 00:00:00 [facility] Zoster(Zostavax)( 2020-09-14 Completed Unive rsity of ingles) 00:00:00 [facility] Zoster(Zostavax)( 2020-09-14 Completed Unive rsity of ingles) 00:00:00 [facility] Branch Zoster(Zostavax)( 2020-09-14 Completed Unive rsity of ingles) 00:00:00 [facility] Branch Zoster(Zostavax)( 2020-09-14 Completed Unive rsity of ingles) 00:00:00 [facility] Branch Zoster(Zostavax)( 2020-09-14 Completed Unive rsity of ingles) 00:00:00 [facility] Zoster(Zostavax)( 2020-09-14 Completed Unive rsity of ingles) 00:00:00 [facility] Influenza High Dose 2020-07-13 Completed Unive rsity of 00:00:00 [facility] Influenza High Dose 2020-07-13 Completed Unive rsity of 00:00:00 [facility] Influenza High Dose 2020-07-13 Completed Unive rsity of 00:00:00 [facility] Influenza High Dose 2020-07-13 Completed Unive rsity of 00:00:00 [facility] Influenza High Dose 2020-07-13 Completed Unive rsity of 00:00:00 [facility] Influenza High Dose 2020-07-13 Completed Unive rsity of 00:00:00 [facility] Influenza High Dose 2020-07-13 Completed Unive rsity of 00:00:00 [facility] Influenza High Dose 2019-09-15 Completed Unive rsity of 00:00:00 [facility] Influenza High Dose 2019-09-15 Completed Unive rsity of 00:00:00 [facility] Influenza High Dose 2019-09-15 Completed Unive rsity of 00:00:00 [facility] Influenza High Dose 2019-09-15 Completed Unive rsity of 00:00:00 [facility] Influenza High Dose 2019-09-15 Completed Unive rsity of 00:00:00 [facility] Influenza High Dose 2019-09-15 Completed Unive rsity of 00:00:00 [facility] Influenza High Dose 2019-09-15 Completed Unive rsity of 00:00:00 [facility] Influenza Virus 2018-09-09 Completed Universit y of Vaccine 00:00:00 [facility] Influenza Virus 2018-09-09 Completed Universit y of Vaccine 00:00:00 [facility] Influenza Virus 2018-09-09 Completed Universit y of Vaccine 00:00:00 [facility] Influenza Virus 2018-09-09 Completed Universit y of Vaccine 00:00:00 [facility] Influenza Virus 2018-09-09 Completed Universit y of Vaccine 00:00:00 [facility] Influenza Virus 2018-09-09 Completed Universit y of Vaccine 00:00:00 [facility] Influenza Virus 2018-09-09 Completed Universit y of Vaccine 00:00:00 [facility] Influenza Virus 2018-09-09 Completed Universit y of Vaccine 00:00:00 [facility] Influenza Virus 2018-09-09 Completed Universit y of Vaccine 00:00:00 [facility] Influenza Virus 2018-09-09 Completed Universit y of Vaccine 00:00:00 [facility] Influenza Virus 2018-09-09 Completed Universit y of Vaccine 00:00:00 [facility] Influenza Virus 2018-09-09 Completed Universit y of Vaccine 00:00:00 [facility] Influenza Virus 2018-09-09 Completed Universit y of Vaccine 00:00:00 [facility] Influenza Virus 2018-09-09 Completed Universit y of Vaccine 00:00:00 [facility] Influenza Virus 2018-09-09 Completed Universit y of Vaccine 00:00:00 [facility] Influenza Virus 2018-09-09 Completed Universit y of Vaccine 00:00:00 [facility] Influenza Virus 2018-09-09 Completed Universit y of Vaccine 00:00:00 [facility] Influenza Virus 2018-09-09 Completed Universit y of Vaccine 00:00:00 [facility] Influenza Virus 2018-09-09 Completed Universit y of Vaccine 00:00:00 [facility] Influenza Virus 2018-09-09 Completed Universit y of Vaccine 00:00:00 [facility] Influenza Virus 2018-09-09 Completed Universit y of Vaccine 00:00:00 [facility] Influenza Virus 2018-09-09 Completed Universit y of Vaccine 00:00:00 [facility] Influenza Virus 2018-09-09 Completed Universit y of Vaccine 00:00:00 [facility] Influenza Virus 2018-09-09 Completed Universit y of Vaccine 00:00:00 [facility] Influenza Virus 2018-09-09 Completed Universit y of Vaccine 00:00:00 [facility] Pneumococcal 2016-11-02 Completed University o f Polysaccharide, [...] ical PPSV23 (PNEUMOVAX) Branch Pneumococcal 2016-11-02 Completed [place] o f Polysaccharide, 00:00:00 [place] Med ical PPSV23 (PNEUMOVAX) Branch Pneumococcal 2016-11-02 Completed [place] o f Polysaccharide, 00:00:00 [place] Med ical PPSV23 (PNEUMOVAX) Branch Vital Signs Vital Name Observation Time Observation Value Comments Source Systolic blood 2022-05-31 16:18:00 123 mm[Hg] Univer sity of pressure [facility] Diastolic blood 2022-05-31 16:18:00 74 mm[Hg] Unive rsity of pressure [facility] Heart rate 2022-05-31 16:18:00 92 /min Universi ty [facility] Body temperature 2022-05-31 16:18:00 36.78 Priyanka Univ ersity of [facility] Respiratory rate 2022-05-31 16:18:00 18 /min Univ ersity [facility] Oxygen saturation in 2022-05-31 16:18:00 93 /min University of Arterial blood by [facility] Pulse oximetry Branch Body weight 2022-05-30 08:33:00 53.978 kg Universi ty [facility] BMI 2022-05-30 08:33:00 18.63 kg/m2 Universi ty [facility] Body height 2022-05-24 20:10:00 170.2 cm Universi ty [facility] Systolic blood 2022-04-17 03:35:00 110 mm[Hg] Univer sity of [facility] Diastolic blood 2022-04-17 03:35:00 77 mm[Hg] Unive rsity of [facility] Heart rate 2022-04-17 03:35:00 98 /min Universi ty [facility] Oxygen saturation in 2022-04-17 03:35:00 99 /min University of Arterial blood by [facility] Pulse oximetry Branch Body temperature 2022-04-17 03:25:00 37.33 Priyanka Univ ersity of [facility] Respiratory rate 2022-04-17 03:25:00 18 /min Univ ersity [facility] Body height 2022-04-17 03:25:00 170.2 cm Universi ty [facility] Body weight 2022-04-17 03:25:00 77.111 kg Universi ty [facility] BMI 2022-04-17 03:25:00 26.63 kg/m2 Universi ty of [place] [facility] Systolic blood 2022-03-01 16:36:00 143 mm[Hg] Univer sity of pressure [place] [facility] Diastolic blood 2022-03-01 16:36:00 80 mm[Hg] Unive rsity of pressure [place] [facility] Heart rate 2022-03-01 16:36:00 98 /min Universi ty of [place] [facility] Respiratory rate 2022-03-01 16:36:00 16 /min Univ ersity of [place] [facility] Oxygen saturation in 2022-03-01 16:36:00 97 /min University of Arterial blood by [employer] Pulse oximetry Branch Body temperature 2022-03-01 11:42:00 36.94 Priyanka Univ ersity of [place] [facility] Body height 2022-03-01 11:42:00 170.2 cm Universi ty of [place] [facility] Body weight 2022-03-01 11:42:00 77.111 kg Universi ty of [place] [facility] BMI 2022-03-01 11:42:00 26.63 kg/m2 Universi ty of [place] [facility] Systolic blood 2021-11-02 17:17:00 109 mm[Hg] Univer sity of pressure [place] [facility] Diastolic blood 2021-11-02 17:17:00 67 mm[Hg] Unive rsity of pressure [place] [facility] Heart rate 2021-11-02 17:17:00 84 /min Universi ty of [place] [facility] Body temperature 2021-11-02 17:17:00 36.44 Priyanka Univ ersity of [place] [facility] Respiratory rate 2021-11-02 17:17:00 18 /min Univ ersity of [place] [facility] Oxygen saturation in 2021-11-02 17:17:00 95 /min University of Arterial blood by [employer] Pulse oximetry Branch Body weight 2021-11-02 09:17:00 79.969 kg Universi ty of [place] [facility] BMI 2021-11-02 09:17:00 27.61 kg/m2 Universi ty of [place] [facility] Body height 2021-10-31 05:46:00 170.2 cm Universi ty of [place] [facility] Systolic blood 2021-04-25 22:36:00 118 [...] 99 /min University of Arterial blood by [place] [employer] Pulse oximetry Branch Body temperature 2021-04-25 15:42:00 36.44 Priyanka Univ ersity of [place] [facility] Body weight 2021-04-25 15:42:00 81.647 kg Universi ty of [place] [facility] BMI 2021-04-25 15:42:00 27.37 kg/m2 Universi ty of [place] [facility] Systolic blood 2020-06-26 10:00:00 124 mm[Hg] Univer sity of pressure [place] [facility] Diastolic blood 2020-06-26 10:00:00 78 mm[Hg] Unive rsity of pressure [place] [facility] Respiratory rate 2020-06-26 10:00:00 18 /min Univ ersity of [place] [facility] Oxygen saturation in 2020-06-26 10:00:00 98 /min University of Arterial blood by [place] [employer] Pulse oximetry Branch Heart rate 2020-06-26 08:56:00 98 /min Universi ty of [place] [facility] Body temperature 2020-06-26 08:56:00 37.17 Priyanka Univ ersity of [place] [facility] Body weight 2020-06-26 08:56:00 74.844 kg Universi ty of [place] [facility] BMI 2020-06-26 08:56:00 25.09 kg/m2 Universi ty of [place] [facility] Systolic blood 2020-06-26 10:00:00 124 mm[Hg] Univer sity of pressure [place] [facility] Diastolic blood 2020-06-26 10:00:00 78 mm[Hg] Unive rsity of pressure [place] [facility] Respiratory rate 2020-06-26 10:00:00 18 /min Univ ersity of [place] [facility] Oxygen saturation in 2020-06-26 10:00:00 98 /min University of Arterial blood by [place] [employer] Pulse oximetry Branch Heart rate 2020-06-26 08:56:00 98 /min Universi ty of [place] [facility] Body temperature 2020-06-26 08:56:00 37.17 Priyanka Univ ersity of [place] [facility] Body weight 2020-06-26 08:56:00 74.844 kg Universi ty of [place] [facility] BMI 2020-06-26 08:56:00 25.09 kg/m2 Universi ty of [place] [facility] Systolic blood 2020-05-24 15:47:29 166 mm[Hg] Univer sity of pressure [place] [facility] Diastolic blood 2020-05-24 15:47:29 89 mm[Hg] Unive rsity of pressure [place] [facility] Heart rate 2020-05-24 15:47:29 86 /min Universi ty of [place] [facility] Respiratory rate 2020-05-24 15:47:29 16 /min Univ ersity of [place] [facility] Oxygen saturation in 2020-05-24 15:47:29 97 /min University of Arterial blood by [facility] Pulse oximetry Branch Body temperature 2020-05-24 11:44:00 36.94 Priyanka Univ ersity of [place] [facility] Body height 2020-05-24 11:44:00 172.7 cm Universi ty of [place] [facility] Body weight 2020-05-24 11:44:00 74.844 kg Universi ty of [place] [facility] BMI 2020-05-24 11:44:00 25.09 kg/m2 Universi ty of [place] [facility] Systolic blood 2020-05-24 15:47:29 166 mm[Hg] Univer sity of pressure [place] [facility] Diastolic blood 2020-05-24 15:47:29 89 mm[Hg] Unive rsity of pressure [place] [facility] Heart rate 2020-05-24 15:47:29 86 /min Universi ty of [place] [facility] Respiratory rate 2020-05-24 15:47:29 16 /min Univ ersity of [place] [facility] Oxygen saturation in 2020-05-24 15:47:29 97 /min University of Arterial blood by [facility] [facility] P[facility] oxim[facility] Body temperature 2020-05-24 11:44:00 36.94 Priyanka [facility] Body height 2020-05-24 11:44:00 172.7 cm [facility] Body weight 2020-05-24 11:44:00 74.844 kg [facility] BMI 2020-05-24 11:44:00 25.09 kg/m2 [facility] Systolic blood 2020-03-24 02:31:00 127 mm[Hg] [facility] Diastolic blood 2020-03-24 02:31:00 72 mm[Hg] [facility] Heart rate 2020-03-24 02:31:00 69 /min [facility] Body temperature 2020-03-24 02:31:00 36.39 Priyanka [facility] Respiratory rate 2020-03-24 02:31:00 18 /min [facility] Oxygen saturation in 2020-03-24 02:31:00 97 /min [facility] Arterial blood by [place] [employer] [facility] Systolic blood 2020-03-23 21:35:00 100 mm[Hg] [facility] Diastolic blood 2020-03-23 21:35:00 59 mm[Hg] [facility] Heart rate 2020-03-23 21:35:00 79 /min [facility] Body temperature 2020-03-23 21:35:00 36.78 Priyanka [facility] Respiratory rate 2020-03-23 21:35:00 18 /min [facility] Oxygen saturation in 2020-03-23 21:35:00 99 /min [facility] [place] [employer] [facility] Pulse oximetry Branch Body weight 2020-03-23 09:41:00 76.613 kg [facility] BMI 2020-03-23 09:41:00 26.45 kg/m2 [facility] Body height 2020-03-23 03:43:00 170.2 cm [facility] Systolic blood 2020-03-21 20:55:00 128 mm[Hg] [facility] Diastolic blood 2020-03-21 20:55:00 61 mm[Hg] [facility] Heart rate 2020-03-21 20:55:00 75 /min [facility] Respiratory rate 2020-03-21 20:55:00 10 /min [facility] Oxygen saturation in 2020-03-21 20:55:00 98 /min [facility] [place] [employer] [facility] Body temperature 2020-03-21 20:03:00 37.83 Priyanka [facility] Body height 2020-03-21 20:03:00 170.2 cm [facility] Body weight 2020-03-21 20:03:00 76.204 kg [facility] BMI 2020-03-21 20:03:00 26.31 kg/m2 [facility] Systolic blood 2020-03-07 20:50:00 118 mm[Hg] [facility] Diastolic blood 2020-03-07 20:50:00 65 mm[Hg] [facility] Heart rate 2020-03-07 20:50:00 85 /min [facility] Body temperature 2020-03-07 20:50:00 36.39 Priyanka [facility] Respiratory rate 2020-03-07 20:50:00 18 /min [facility] Oxygen saturation in 2020-03-07 20:50:00 95 /min [facility] Arterial blood by [facility] Pulse oximetry Branch Body height 2020-03-05 02:35:00 172.7 cm [facility] Body weight 2020-03-05 02:35:00 73.483 kg [facility] BMI 2020-03-05 02:35:00 24.63 kg/m2 [facility] Systolic blood 2020-03-02 15:49:00 122 mm[Hg] [facility] Diastolic blood 2020-03-02 15:49:00 81 mm[Hg] [facility] Heart rate 2020-03-02 15:49:00 89 /min [facility] Body temperature 2020-03-02 15:49:00 37.06 Priyanka [facility] Respiratory rate 2020-03-02 15:49:00 19 /min [facility] Oxygen saturation in 2020-03-02 15:49:00 96 /min [facility] Arterial blood by [facility] Pulse oximetry Branch Body height 2020-03-01 00:54:00 170.2 cm [facility] Body weight 2020-03-01 00:54:00 76.975 kg [facility] BMI 2020-03-01 00:54:00 26.58 kg/m2 [facility] Systolic blood 2020-01-17 21:08:00 116 mm[Hg[facility] Diastolic blood 2020-01-17 21:08:00 78 mm[Hg] [facility] Heart rate 2020-01-17 21:08:00 88 /min [facility] Body temperature 2020-01-17 21:08:00 36.72 Priyanka [facility] Respiratory rate 2020-01-17 21:08:00 18 /min [facility] Oxygen saturation in 2020-01-17 21:08:00 98 /min [facility] Arterial blood by [facility] Pulse oximetry [place] Body height 2020-01-16 06:21:00 172.7 cm [facility] Body weight 2020-01-16 04:35:00 83.462 kg [facility] BMI 2020-01-16 04:35:00 27.98 kg/m2 [facility] Procedures Procedure Date / Time Performing Clinician Source Performed BASIC METABOLIC PANEL 2022-05-31 10:30:00 Perfecto Garnica [facility] (NA, K, CL, CO2, GLUCOSE, Medica l Branch BUN, CREATININE, CA) COVID-19 (ID NOW RAPID 2022-05-30 21:43:00 Perfecto Garnica [facility] TESTING) [facility] BASIC METABOLIC PANEL 2022-05-30 08:35:00 Winston Ace [facility] (NA, K, CL, CO2, GLUCOSE, Medica l Branch BUN, CREATININE, CA) BASIC METABOLIC PANEL 2022-05-29 09:12:00 Winston Ace [facility] (NA, K, CL, CO2, GLUCOSE, Medica l Branch BUN, CREATININE, CA) N-TERMINAL PRO-BNP 2022-05-29 09:12:00 Winston Ace [facility] CBC WITH DIFF 2022-05-28 07:54:00 Perfecto Garnica [facility] BASIC METABOLIC PANEL 2022-05-27 10:11:00 Yamel Garnicashua [facility] (NA, K, CL, CO2, GLUCOSE, Medica l Branch BUN, CREATININE, CA) N-TERMINAL PRO-BNP 2022-05-27 10:11:00 Winston Ace [facility] MAGNESIUM 2022-05-26 16:16:00 [facility] BASIC METABOLIC PANEL 2022-05-26 16:16:00 [facility] Perfecto [facility] (NA, K, CL, CO2, GLUCOSE, Medica l Branch BUN, CREATININE, CA) TRANSTHORACIC ECHO (TTE) 2022-05-26 14:47:08 Sonny Garcia [facility] COMPLETE W/ CONTRAST Medical [facility] D-DIMER 2022-05-25 19:54:00 [facility] 2022-05-25 13:57:00 Jose Sonny [facility] BASIC METABOLIC PANEL 2022-05-25 13:57:00 Sonny Garcia [facility] (NA, K, CL, CO2, GLUCOSE, Medica l Branch BUN, CREATININE, CA) POCT GLUCOSE (AUTOMATED) 2022-05-24 16:03:[address] [facility] CT ANGIOGRAM CHEST 2022-05-24 06:48:00 [facility] CT ANGIOGRAM 2022-05-24 06:48:00 Davis Fam [facility] ABDOMEN/PELVIS Medical Branch URINALYSIS 2022-05-24 06:13:00 Davis Fam [facility] XR HIPS 2 VW LEFT 2022-05-24 04:45:00 Davis Fam [facility] XR CHEST 1 VW 2022-05-24 04:44:00 Davis Fam [facility] COVID-19 (ID NOW RAPID 2022-05-24 04:28:00 Davis Fam [facility] TESTING) Medical Branch LAB ONLY COVID 2022-05-24 04:28:00 Davis Fam [facility] INTERPRETATION [facility] TROPONIN I 2022-05-24 04:22:00 Davis Fam [facility] COMP. METABOLIC PANEL 2022-05-24 04:22:00 Davis Fam [facility] ([id number]) [facility] CBC WITH DIFF 2022-05-24 04:22:00 Davis Fam [facility] N-TERMINAL PRO-BNP 2022-05-24 04:22:00 Kina N[facility] EKG-12 LEAD 2022-05-24 04:02:12 Davis Fam [facility] CONSENT/REFUSAL FOR 2022-04-17 03:07:20 Doctor Unassigned, [facility] DIAGNOSIS AND TREATMENT [facility] XR LUMBAR SPINE 2 VW 2022-03-01 14:18:00 Angelika Aguilar [facility] EXTERNAL PROVIDER RECORDS 2021-11-19 06:01:00 Doctor Unassrose mary, [facility] [place] [facility] POCT GLUCOSE (AUTOMATED) 2021-11-02 22:49:00 Aida Shah [facility] POCT GLUCOSE (AUTOMATED) 2021-11-02 17:06:00 Aida Shah [facility] POCT GLUCOSE (AUTOMATED) 2021-11-02 13:30:00 Aida Shah [facility] TROPONIN I 2021-11-02 09:29:00 Alexandra Hdz [facility] BASIC METABOLIC PANEL 2021-11-02 09:29:00 Sridhar Gordon [facility] (NA, K, CL, CO2, GLUCOSE, Medica l Branch BUN, CREATININE, CA) CBC WITH DIFF 2021-11-02 09:29:00 Sridhar Gordon [facility] N-TERMINAL PRO-BNP 2021-11-02 09:29:00 Alexandra Hdz [facility] POCT GLUCOSE (AUTOMATED) 2021-11-02 01:27:00 Aida Shah [facility] POCT GLUCOSE (AUTOMATED) 2021-11-01 17:37:00 OvilleDenilsonAida Nilda [facility] POCT GLUCOSE (AUTOMATED) 2021-11-01 13:40:00 AlyssaKeerthii [facility] POCT GLUCOSE (AUTOMATED) 2021-11-01 01:10:00 AlyssaDenilsonAida [facility] POCT GLUCOSE (AUTOMATED) 2021-10-31 22:28:00 Alyssa Aida [facility] POCT GLUCOSE (AUTOMATED) 2021-10-31 17:29:00 [facility] TROPONIN I 2021-10-31 16:25:00 Alexandra Hdz [facility] TRANSTHORACIC ECHO (TTE) 2021-10-31 15:53:00 Alexandra Hdz [facility] COMPLETE W/ CONTRAST Medical [facility] POCT GLUCOSE (AUTOMATED) 2021-10-31 13:39:00 [facility] TROPONIN I 2021-10-31 10:08:00 [facility]EL 2021-10-31 10:[facility] ([facility], [facility], CL, CO2, GLUCOSE, Medica l Branch BUN, CREATININE, CA) LIPID PANEL ([id number])(TOTAL 2021-10-31 10:08:00 Alexandra Hdz [facility] CHOLESTEROL, [facility] TRIGLYCERIDES, HDL) CBC WITH DIFF 2021-10-31 10:08:00 [facility] URINALYSIS 2021-10-31 10:08:00 [facility] N-TERMINAL PRO-BNP 2021-10-31 10:08:00 Alexandra Hdz [facility] TROPONIN I 2021-10-31 06:17:00 [facility] CHEST 1 VW 2021-10-31 01:30:56 Martha Drake [facility] LIPASE 2021-10-31 01:25:00 Martha Drake [facility] TROPONIN I 2021-10-31 01:25:00 Martha Drake [facility] COMP. METABOLIC PANEL 2021-10-31 01:25:00 Martha Drake [facility] ([id number]) Medical Branch CBC WITH DIFF 2021-10-31 01:25:00 Martha Drake [facility] GLYCOSYLATED HEMOGLOBIN 2021-10-31 01:25:00 Sarah Adorno [facility] (A1C) [facility] PROTHROMBIN TIME / INR 2021-10-31 01:25:00 Martha Drake [facility] ACTIVATED PARTIAL 2021-10-31 01:25:00 [facility] Drake [facility] N-[facility]MINAL PRO-BNP 2021-10-31 01:25:00 Martha Drake [facility] COVID-19 (ID NOW RAPID 2021-10-31 01:25:00 Martha Drake [facility] TESTING) Medical Branch LAB ONLY COVID 2021-10-31 01:25:00 Martha Drake [facility] INTERPRETATION [facility] HB ECG ROUTINE & RHYTHM 2021-10-31 01:20:03 Martha Drake [facility] STRIP [facility] URINALYSIS 2021-04-25 21:01:00 Nallely Bhat [facility] XR LUMBAR SPINE 2 VW 2021-04-25 18:41:00 Nallely Bhat [facility] XR HIPS 2 VW LEFT 2021-04-25 18:41:00 Nallely Bhat [facility] CONSENT/REFUSAL FOR 2021-04-25 15:43:06 Doctor Unassigned, [facility] DIAGNOSIS AND TREATMENT [place] [facility] CT CERVICAL SPINE WO 2020-06-26 09:35:01 Martha Drake [facility] CONTRAST [facility] CT LUMBAR SPINE WO 2020-06-26 09:35:01 Martha Drake [facility] CT THORACIC SPINE WO 2020-06-26 09:35:01 Martha Drake [facility] CONTRAST [facility] UNILATERAL DUPLEX SCAN OF 2020-05-24 14:53:40 [facility] XR ANKLE 3+ VW LEFT 2020-05-24 13:22:26 Charanjit Heck [facility] HEPATIC FUNCTION PANEL 2020-05-24 13:13:00 Charanjit Heck [facility] ([id number]) (ALB,T.PRO,BILI Medical Branch T,BU/BC,ALT,AST,ALK PHOS) BASIC METABOLIC PANEL 2020-05-24 13:13:00 Charanjit Heck [facility] (NA, K, CL, CO2, GLUCOSE, Medica l Branch BUN, CREATININE, CA) CBC WITH DIFFERENTIAL 2020-05-24 13:13:00 Charanjit Heck [facility] PROTHROMBIN TIME / INR 2020-05-24 13:13:00 Charanjit Heck [facility] ACTIVATED PARTIAL 2020-05-24 13:13:00 Charanjit Heck [facility] THRMPLAS JACEK [facility] NOTICE OF PRIVACY 2020-05-24 11:38:26 Doctor Unassigned, [facility] PRACTICES [place] [facility] [place] CONSENT/REFUSAL FOR 2020-05-24 11:35:52 Doctor Unassrose mary, [facility] DIAGNOSIS AND TREATMENT [place] [facility] POCT GLUCOSE (AUTOMATED) 2020-03-23 22:32:00 Jamel Flores [facility] POCT GLUCOSE (AUTOMATED) 2020-03-23 18:07:00 Jamel Flores [facility] POCT GLUCOSE (AUTOMATED) 2020-03-23 14:57:00 Jamel Flores [facility] ECHO ROUTINE W/DOPPLER 2020-03-23 13:33:57 Tereza Cano [facility] COLOR [facility] EKG-12 LEAD 2020-03-23 12:56:59 Jamel Flores [facility] MAGNESIUM 2020-03-23 11:15:[address] [facility] TROPONIN I 2020-03-23 11:15:[address] [facility] BASIC METABOLIC PANEL 2020-03-23 11:15:00 [facility] (NA, K, CL, CO2, GLUCOSE, Medica l Branch BUN, CREATININE, CA) PROTHROMBIN TIME / INR 2020-03-23 11:15:00 Tereza Cano [facility] ACTIVATED PARTIAL 2020-03-23 11:15:00 Jerome [facility] EKG-12 LEAD 2020-03-23 07:51:19 Jamel Flores [facility] MAGNESIUM 2020-03-23 05:55:00 [facility] 2020-03-23 05:55:[address] [facility] BASIC METABOLIC PANEL 2020-03-23 05:55:00 [facility] (NA, K, CL, CO2, GLUCOSE, Medica l Branch BUN, CREATININE, CA) LIPID PANEL ([id number])(TOTAL 2020-03-23 05:55:00 Tereza Cano [facility] CHOLESTEROL, [facility] TRIGLYCERIDES, HDL) PROTHROMBIN TIME / INR 2020-03-23 02:55:00 [facility] ACTIVATED PARTIAL 2020-03-23 02:55:[address] [facility] XR CHEST 2 VW 2020-03-23 01:52:37 Esteban Singletary [facility] CORONAVIRUS COVID-19 2020-03-23 00:50:00 Esteban Singletary [facility] TESTING [facility] FERRITIN SERUM 2020-03-22 23:36:00 [facility] 2020-03-22 23:36:00 Esteban Singletary [facility] COMP. METABOLIC PANEL 2020-03-22 23:36:00 Esteban Singletary [facility] ([id number]) Medical Branch IRON PANEL 2020-03-22 23:36:00 [facility] WITH DIFFERENTIAL 2020-03-22 23:36:00 Esteban Singletary [facility] N-TERMINAL PRO-BNP 2020-03-22 23:36:00 Esteban Singletary [facility] EKG-12 LEAD 2020-03-22 23:08:53 Danielle [facility] EKG-12 LEAD 2020-03-22 23:08:15 Danielle [facility] XR CHEST 1 VW 2020-03-21 20:42:35 Myles Harry [facility] LACTIC ACID WHOLE BLOOD 2020-03-21 20:38:00 Myles Harry [facility] LIPASE 2020-03-21 20:19:00 Myles Harry [facility] TROPONIN I 2020-03-21 20:19:00 Myles Harry [facility] COMP. METABOLIC PANEL 2020-03-21 20:19:00 Myles Harry [facility] ([id number]) [facility] PROTHROMBIN TIME / INR 2020-03-21 20:19:00 Myles Harry [facility] N-TERMINAL PRO-BNP 2020-03-21 20:19:00 Myles Harry [facility] CORONAVIRUS COVID-19 2020-03-21 20:19:00 Myles Harry [facility] EKG-12 LEAD 2020-03-21 20:11:28 Myles Harry [facility] POCT GLUCOSE (AUTOMATED) 2020-03-07 20:56:00 Sarah Adorno Invoiceable [facility] POCT GLUCOSE (AUTOMATED) 2020-03-07 15:34:00 Sarah Adorno Invoiceable [facility] POCT GLUCOSE (AUTOMATED) 2020-03-07 12:56:00 [facility] URIC ACID 2020-03-07 10:14:00 Holland Briscoe [facility] TROPONIN I 2020-03-07 10:14:00 Lulu Harris [place] o [facility] BASIC METABOLIC PANEL 2020-03-07 10:14:00 Sarah Adorno [facility] (NA, K, CL, CO2, GLUCOSE, Medica l Branch BUN, CREATININE, CA) CBC WITH DIFFERENTIAL 2020-03-07 10:14:00 Julio Cesar [facility] N-TERMINAL PRO-BNP 2020-03-07 10:14:00 [facility] ([facility]OM[facility]) 2020-03-06 21:16:00 Edionrosalio [facility] POCT GLUCOSE (AUTOMATED) 2020-03-06 16:10:00 Edionrosalio [facility] POCT GLUCOSE (AUTOMATED) 2020-03-06 12:38:00 Edionrosalio [facility] TROPONIN I 2020-03-06 08:51:00 [facility] BASIC METABOLIC PANEL 2020-03-06 08:51:00 [facility] (NA, K, CL, CO2, GLUCOSE, Medica l Branch BUN, CREATININE, CA) CBC WITH DIFFERENTIAL 2020-03-06 08:51:00 Julio Cesar [facility] POCT GLUCOSE (AUTOMATED) 2020-03-06 01:16:00 Edconsuelo [facility] TROPONIN I 2020-03-05 23:25:00 Edconsuelo [facility] POCT GLUCOSE (AUTOMATED) 2020-03-05 21:14:00 Edconsuelo [facility] POCT GLUCOSE (AUTOMATED) 2020-03-05 16:39:00 Edionrosalio [facility] POCT GLUCOSE (AUTOMATED) 2020-03-05 12:47:00 Edionrosalio [facility] TROPONIN I 2020-03-05 09:50:00 [facility] BASIC METABOLIC PANEL 2020-03-05 09:50:00 [facility] (NA, K, CL, CO2, GLUCOSE, Medica l Branch BUN, CREATININE, CA) CBC WITH DIFFERENTIAL 2020-03-05 09:50:00 [facility] 2020-03-05 00:36:54 Bobo Urrutia [facility] EKG-12 LEAD 2020-03-05 00:31:03 Bobo Urrutia [facility] CORONAVIRUS COVID-19 2020-03-05 00:03:00 Charanjit Heck [facility] TESTING [facility] XR CHEST 1 VW 2020-03-04 23:58:59 Charanjit Heck [facility] LIPASE 2020-03-04 23:29:00 Charanjit Heck [facility] TROPONIN I 2020-03-04 23:29:00 Charanjit Heck [facility] HEPATIC FUNCTION PANEL 2020-03-04 23:29:00 Charanjit Heck [facility] ([id number]) (ALB,T.PRO,BILI Medical Branch T,BU/BC,ALT,AST,ALK PHOS) BASIC METABOLIC PANEL 2020-03-04 23:29:00 Charanjit Heck [facility] (NA, K, CL, CO2, GLUCOSE, Medica l Branch BUN, CREATININE, CA) CBC WITH DIFFERENTIAL 2020-03-04 23:29:00 Charanjit Heck [facility] PROTHROMBIN TIME / INR 2020-03-04 23:29:00 Charanjit Heck [facility] ACTIVATED PARTIAL 2020-03-04 23:29:00 Charanjit Heck [facility] THRMPLAS [facility] N-TERMINAL PRO-BNP 2020-03-04 23:29:00 Charanjit Heck [facility] EKG-12 LEAD 2020-03-04 23:15:42 Charanjit Heck [facility] EKG-12 LEAD 2020-03-04 23:10:23 Charanjit Heck [facility] EMERGENCY DEPARTMENT 2020-03-04 05:01:00 Doctor Unassigned, [facility] DOCUMENTS [place] [facility] POCT GLUCOSE (AUTOMATED) 2020-03-02 15:52:00 Lulu Harris [facility] POCT GLUCOSE (AUTOMATED) 2020-03-02 12:39:00 Lulu Harris [facility] MAGNESIUM 2020-03-02 08:57:00 Ivory Leon [facility] BASIC METABOLIC PANEL 2020-03-02 08:57:00 Carolyn alek [facility] (NA, K, CL, CO2, GLUCOSE, Medica l Branch BUN, CREATININE, CA) N-TERMINAL PRO-BNP 2020-03-02 08:57:00 Carolyn [facility] POCT GLUCOSE (AUTOMATED) 2020-03-01 20:39:00 Lulu Harris [facility] MAGNESIUM 2020-03-01 08:43:00 Lulu Harris [facility] TROPONIN I 2020-03-01 08:43:00 Carolyn [facility] BASIC METABOLIC PANEL 2020-03-01 08:43:00 Lulu Harris [facility] (NA, K, CL, CO2, GLUCOSE, Medica l Branch BUN, CREATININE, CA) CBC WITH DIFFERENTIAL 2020-03-01 08:43:00 Lulu Harris [facility] N-TERMINAL PRO-BNP 2020-03-01 08:43:00 Carolyn [facility] VITAMIN B12, LEVEL 2020-03-01 03:49:00 Carolyn [facility] FOLATE 2020-03-01 03:49:00 Carolyn [facility] SEDIMENTATION RATE 2020-03-01 03:49:00 Carolyn [facility] POCT GLUCOSE (AUTOMATED) 2020-03-01 03:39:00 Lulu Harris [facility] PHOSPHORUS 2020-03-01 02:28:00 Lulu Harris [facility] URIC ACID 2020-03-01 02:28:00 Carolyn [facility] TROPONIN I 2020-03-01 02:28:00 Carolyn [facility] HEPATIC FUNCTION PANEL 2020-03-01 02:28:00 Ivory Leon [facility] ([id number]) (ALB,T.PRO,BILI Medical Branch T,BU/BC,ALT,AST,ALK PHOS) PROTHROMBIN TIME / INR 2020-03-01 02:28:00 Ivory Leon [facility] N-TERMINAL PRO-BNP 2020-03-01 02:28:00 Lulu [facility] PROCALCITONIN 2020-03-01 02:28:00 Carolyn alek [facility] EKG-12 LEAD 2020-03-01 01:54:29 Carolyn [facility] EKG-12 LEAD 2020-02-29 23:16:21 Bobo Urrutia [facility] XR CHEST 1 VW COVID 2020-02-29 23:14:25 Bobo Urrutia [facility] EKG-12 LEAD 2020-02-29 23:13:50 Bobo Urrutia [facility] LACTIC ACID WHOLE BLOOD 2020-02-29 22:21:00 Bobo Urrutia [facility] CORONAVIRUS COVID-19 2020-02-29 22:20:00 Bobo Urrutia [facility] CREATINE KINASE 2020-02-29 22:14:00 Carolyn [facility] URIC ACID 2020-02-29 22:14:00 Carolyn [facility] LIPASE 2020-02-29 22:14:00 Bobo Urrutia [facility] MAGNESIUM 2020-02-29 22:14:00 Carolyn [facility] TROPONIN I 2020-02-29 22:14:00 Bobo Urrutia [facility] THYROID STIMULATING 2020-02-29 22:14:00 Ivory Leon [facility] HORMONE [facility] BASIC METABOLIC PANEL 2020-02-29 22:14:00 Bobo Urrutia [facility] (NA, K, CL, CO2, GLUCOSE, Medica l Branch BUN, CREATININE, CA) CBC WITH DIFFERENTIAL 2020-02-29 22:14:00 Bobo Urrutia [facility] GLYCOSYLATED HEMOGLOBIN 2020-02-29 22:14:00 Carolyn [facility] (A1C) [facility] N-TERMINAL PRO-BNP 2020-02-29 22:14:00 Ivory Leon [facility] EKG-12 LEAD 2020-02-29 21:59:12 Bobo Urrutia [facility] EKG-12 LEAD 2020-02-29 21:48:49 Bobo Ururtia [facility] EMERGENCY DEPARTMENT 2020-02-29 05:01:00 Doctor Unassigned, [facility] DOCUMENTS [place] [facility] POCT GLUCOSE (AUTOMATED) 2020-01-17 18:15:00 Edconsuelo [facility] TROPONIN I 2020-01-17 16:31:00 Julio Cesar [facility] ACTIVATED PARTIAL 2020-01-17 16:31:00 Carolyn [facility] POCT GLUCOSE (AUTOMATED) 2020-01-17 11:56:00 Julio Cesar [facility] TROPONIN I 2020-01-17 09:52:00 Julio Cesar [facility] BASIC METABOLIC PANEL 2020-01-17 09:52:00 [facility] (NA, K, CL, CO2, GLUCOSE, Medica l Branch BUN, CREATININE, CA) CBC WITH DIFFERENTIAL 2020-01-17 09:52:00 [facility] 2020-01-17 09:52:00 Julio Cesar [facility] POCT GLUCOSE (AUTOMATED) 2020-01-16 23:59:00 Julio Cesar [facility] EKG-12 LEAD 2020-01-16 22:15:50 Julio Cesar [facility] TROPONIN I 2020-01-16 20:04:00 Julio Cesar [facility] ACTIVATED PARTIAL 2020-01-16 20:04:00 Ayo Scruggs [facility] POCT GLUCOSE (AUTOMATED) 2020-01-16 17:05:00 Julio Cesar [facility] POCT GLUCOSE (AUTOMATED) 2020-01-16 13:38:00 Edionrosalio [facility] TROPONIN I 2020-01-16 11:11:00 Edionwe, [facility] LIPID PANEL (26314)(TOTAL 2020-01-16 11:11:00 [facility], HDL) ACTIVATED PARTIAL 2020-01-16 11:11:00 [facility] 2020-01-16 05:48:18 Charanjit Heck [facility] XR CHEST 1 VW 2020-01-16 04:46:44 Charanjit Heck [facility] TROPONIN I 2020-01-16 04:38:00 Charanjit Heck [facility] HEPATIC FUNCTION PANEL 2020-01-16 04:38:00 Charanjit Heck [facility] ([id number]) (ALB,T.PRO,BILI Medical Branch T,BU/BC,ALT,AST,ALK PHOS) BASIC METABOLIC PANEL 2020-01-16 04:38:00 Charanjit Heck [facility] (NA, K, CL, CO2, GLUCOSE, Medica l Branch BUN, CREATININE, CA) CBC WITH DIFFERENTIAL 2020-01-16 04:38:00 Charanjit Heck [facility] GLYCOSYLATED HEMOGLOBIN 2020-01-16 04:38:00 [facility] PROTHROMBIN TIME / INR 2020-01-16 04:38:00 Charanjit Heck [facility] ACTIVATED PARTIAL 2020-01-16 04:38:00 Charanjit Heck [facility] N-TERMINAL PRO-BNP 2020-01-16 04:38:00 Charanjit Heck [facility] EKG-12 LEAD 2020-01-16 04:37:48 Charanjit Heck [facility] EKG-12 LEAD 2020-01-16 04:35:35 Charanjit Heck [facility] AUTHORIZATION FOR RELEASE 2019-07-12 05:01:00 Doctor Unassigned, [facility] [place] [facility] Encounters Start End Encounter Admission Attending Care Care Encounter Source Date/Time Date/Time Type Type Clinicians Facility Department ID 2022-03-06 Outpatient [facility] [id number] [place] 08:51:10 [id number] [facility] 2021-12-16 Inpatient ELIZA VillavicencioCL [facility] [id number] [facility] 11:30:00 [facility] 2021-12-16 Outpatient [facility] [id number] Common 09:19:01 [facility] 2021-12-11 Outpatient Lester, ST[facility] [id number] Common 14:38:21 Anneliese [facility] 2021-12-11 Outpatient Lester, [facility] [id number] Common 11:50:18 Anneliese [facility] 2021-09-16 Emergency [facility] [id number] Univers 00:23:34 ity [facility] 2021-09-13 Emergency [facility] [id number] Univers 11:42:35 ity [facility] 2021-09-13 Emergency [facility] [id number] Univers 05:40:48 ity [facility] 2022-06-03 2022-06-03 Outpatient X KYRA [facility] [id number] Univers 09:43:00 09:43:00 EVE ity [facility] 2022-06-02 2022-06-02 Transition SHAREE Silva 1.2.840.114 [id number] Univers 00:00:00 00:00:00 of Care Isatu GREWAL 350.1.13.10 it y of [place] 4.2.7.2.686 [facility] [phone] [address] 2022-05-23 2022-05-31 Inpatient X SHREEHONORIO PERFECTO [facility] 1 [id number] Univers 23:06:00 16:10:00 PERFECTO GARNICA ity [facility] 2022-05-23 2022-05-31 [facility] Davis Fam [facility] 1.2.840.11 [id number] Univers 23:06:00 16:10:00 Encounter [facility] 350.1. 13.10 ity of [place] 4.2.7.2.686 [place] as [facility] [phone] [facility] [address] [facility] 2022-04-23 2022-04-23 ambulatory STLMLC STLMLC [id number] Common 00:00:00 00:00:00 [facility] 2022-04-16 2022-04-16 Emergency [facility] [id number] Univers 22:29:00 23:27:00 LUZ carolyn [facility] 2022-04-16 2022-04-16 Emergency [facility] [id number] Univers 22:29:00 23:27:00 Luz Stacy RAMSEY 350.1.13.10 i ty [facility] 4.2.7.2.686 [facility] [id number] [address] 2022-03-05 2022-03-10 Inpatient U BLADE, [facility] CAR 2110 [facility] 06:12:00 22:30:00 BRODIE 2022-03-01 2022-03-01 Emergency [facility] [id number] Univers 06:52:00 12:04:00 ANGELIKA leon [facility] 2022-03-01 2022-03-01 [facility] 1.2.840.114 [id number] Univers 06:52:00 12:04:00 Angelika RAMSEY 350.1.13.10 ity [facility] 4.2.7.2.686 [facility] [id number] [address] 2021-12-25 2021-12-25 Inpatient ATTAR, [facility] [id number] 14 [place] 00:00:00 00:00:00 [address] 2021-12-19 2021-12-25 [id number] [place] 00:00:00 00:00:00 JAYSON [address] 2021-12-24 2021-12-24 ambulatory STLMLC STLMLC [id number] Common 00:00:00 00:00:00 [facility] 2021-12-20 2021-12-20 Inpatient ATTAR, [facility] [id number] 38 [place] 00:00:00 00:00:[address] 2021-12-17 2021-12-17 ambulatory STLMLC STLMLC [id number] Common 00:00:00 00:00:00 [facility] 2021-12-16 2021-12-16 ambulatory STLMLC STLMLC [id number] Common 00:00:00 00:00:00 [facility] 2021-11-19 2021-11-19 Orders Doctor ROBERT 1.2.840.114 [id number] Univers 00:00:00 00:00:00 Only Unassigned, ASHLEIGH 350.1.13.10 ity of [place] [facility] 4.2.7.2.686 [place] [phone] [facility] birdie 009 Branch 2021-11-04 2021-11-04 Transition SHAREE Maria 1.2.840.114 [id number] Univers 00:00:00 00:00:00 of Care Supa Chapman GREWAL 350.1.13.10 ity of [place] 4.2.7.2.686 [facility] s [phone] [facility] birdie 403 Branch 2021-10-30 2021-11-02 Inpatient X ALYSSA TXCESAR ZEFERINO [id number] Univers 19:14:00 18:15:00 AIDA ity of [facility] 2021-10-30 2021-11-02 [facility] 1.2.840. 114 [id number] Univers 19:14:00 18:15:00 Encounter Aida Shah 350.1.13.10 ity of [place] 4.2.7.2.686 [facility] [place] [phone] Medi birdie 081 Branch 2021-05-17 2021-05-17 Letter PcpROBERT 1.2.840.114 [id number] Univers 00:00:00 00:00:00 (Out) Patient ASHLEIGH 350.1.13.10 it y of Does [facility] 4.[place].2.686 [place] [phone] Medi birdie 019 Branch 2021-04-25 2021-04-25 Emergency Cece, TRAUMA 1.2.078.347 [id number] [facility] 10:43:00 17:38:00 [facility] 350.1.13.10 i ty of [place] 4.2.7.2.686 [facility] [id number] [facility] 014 Branch 2020-06-26 2020-06-26 Emergency [facility] 1.2.116.243 [id number] 03:50:00 06:45:00 Martha Ramsey 350.1.13.10 [place] 4.2.7.2.686 [place] [id number] [facility] 2020-06-26 2020-06-26 [facility] 1.2.611.455 [id number] [facility] 03:50:00 06:45:00 Martha Ramsey 350.1.13.10 ity of [place] 4.2.7.2.686 [place] [facility] [phone] [address] 2020-05-24 2020-05-24 [facility] 1.2.887.672 [id number] 06:40:47 10:54:00 Charanjit [place] 350.1.13.10 [place] 4.2.7.2.686 [place] [id number] [facility] 2020-05-24 2020-05-24 [facility] 1.2.044.873 [id number] [facility] 06:40:47 10:54:00 Charanjit Ramsey 350.1.13.10 i ty of [place] 4.2.7.2.686 [place] [facility] [phone] [address] 2020-03-29 2020-03-29 Jamel Dunn 1.2.840.114 [id number] 00:00:00 00:00:00 (Out) T Ashleigh 350.1.13.10 [facility] 4.2.7.2.686 [id number] [facility] 2020-03-29 2020-03-29 Jamel Dunn 1.2.840.114 [id number] Univers 00:00:00 00:00:00 (Out) T [place] 350.1.13.10 it y of [facility] 4.2.7.2.686 [place] [id number] [address] 2020-03-26 2020-03-26 Transition Sharee George 1.2.840.114 [id number] 00:00:00 00:00:00 of Care Sherrell Grewal 350.1.13.10 [place] 4.2.7.2.686 [id number] 403 2020-03-26 2020-03-26 Transition Sharee George 1.2.840.114 [id number] Univers 00:00:00 00:00:00 of Care Sherrell Grewal 350.1.13.10 it y of [place] [id number] [address] 2020-03-22 2020-03-23 Emergency Sallie Eckert 1.2.840. 114 [id number] Univers 18:02:47 21:55:00 Jamel Flores 350.1.13.10 ity [facility] 4.2.7.2.686 [place] [phone] [address] 2020-03-22 2020-03-23 Outpatient X JAMEL FLORES [facility] [id number] Univers 18:02:47 21:55:00 ity of [facility] 2020-03-21 2020-03-21 Emergency [facility] 1.2.840.114 [id number] Univers 15:02:08 17:16:00 Myles Sharon [place] 350.1.13.10 i ty of [place] 4[place].2.686 [place] [phone] [address] 2020-03-21 2020-03-21 Emergency X [facility] ERT [id number] Univers 15:02:08 17:16:00 MYLES ity of [facility] 2020-03-13 2020-03-13 Outpatient Raju_P [facility] G [id number] [place] 05:24:00 05:24:00 [facility] 2020-03-08 2020-03-08 Transition Sharee Cool 1.2.840.114 [id number] Univers 00:00:00 00:00:00 of Care Prema M Grewal 350.1.13.10 i ty of [place] [id number] [address] 2020-03-04 2020-03-07 [facility] Charanjit Heck [facility] 1.2.840.1 14 [id number] Univers 18:01:05 18:00:00 Encounter Sarah Adorno [place] 350.1.13.10 ity of [place] 4.2.7.2.686 [facility] [id number] [address] 2020-03-04 2020-03-07 Inpatient X [facility] ZEFERINO [id number] Univers 18:01:05 18:00:00 SARAH leon [facility] 2020-03-03 2020-03-03 Transition Sharee Silva 1.2.840.114 [id number] Univers 00:00:00 00:00:00 of Marguerite Grewal 350.1.13.10 it y of [place] [phone] [address] 2020-02-29 2020-03-02 [facility] Bobo Urrutia C [facility] 1.2.840.11 [id number] Univers 16:53:09 12:18:00 Encounter Lulu Harris 350.1.13.10 ity of [place] 4.2.7.2.686 [place] [facility] [phone] [address] 2020-02-29 2020-03-02 Inpatient [facility] ZEFERINO [id number] Univers 16:53:09 12:18:00 LULU leon [facility] 2020-02-15 2020-02-15 Outpatient R CHAVA [facility] [id number] Univers 11:30:00 11:30:00 ROSEMARY leon [facility] 2020-02-15 2020-02-15 Telemedici [facility] 1.2.840.114 [id number] Univers 08:13:42 08:43:42 ne Visit Rosemary Ramsey 350.1.13.10 ity of [place] [phone] Mn dical nal [address] 2020-01-18 2020-01-18 Transition Wes, Shearn 1.2.840.114 [id number] Univers 00:00:00 00:00:00 of Care Ana M Hahny 350.1.13.10 it y of [place] 4.2.7.2.[place] [id number] [facility] 403 Branch 2020-01-15 2020-01-17 [facility] Charanjit Heck [facility] 1.2.840.1 14 [id number] Univers 22:33:37 16:58:00 Encounter Sarah Adorno 350.1.13.10 ity of [place].2.686 [place] [phone] [facility] 081 Branch 2020-01-15 2020-01-17 Outpatient X JULIO CESAR [facility] [id number] Univers 22:33:37 16:58:00 SARAH ity [facility] 2019-10-07 2019-10-07 Outpatient [facility] [id number] Common 10:48:00 10:48:00 [facility] it Road [facility] 2019-10-05 2019-10-05 Outpatient B[facility]ospor [facility] [id number] Common 16:06:00 16:06:00 t [facility] it Road [facility] 2019-07-27 2019-07-27 [facility]in [facility] 1.2.840.114 [id number] Univers 00:00:00 00:00:00 Rosemary Ramsey 350.1.13.10 i ty of [place] 4[place].2.[place] [facility] [phone] [facility] 220 Branch [facility] 2019-07-12 2019-07-12 Outpatient [facility] [id number] Common 16:24:00 16:24:00 t [facility] [address] it [address] [facility] 2019-07-12 2019-07-12 Orders Doctor JONES 1.2.840.114 [id number] Univers 00:00:00 00:00:00 Only Unassigned, ASHLEIGH 350.1.13.10 ity of [place] [facility] 4.2.7.2.686 [place] [phone] [place] [address] Branch 2019-07-06 2019-07-06 Outpatient Ko Gant [id number] Common 14:00:00 14:00:[address] [facility] it Road [facility] Results Test Description Test Time Test Comments Results Result Comments Source BASIC METABOLIC PANEL (NA, K, CL, CO2, GLUCOSE, BUN, 2022-05 11:07:06 CREATININE, CA) Test Item Value Reference Range Interpretation Comme nts NA (test code = 8264011220) 133 mmol/L 135-145 L K (test code = 5047907418) 3.3 mmol/L 3.5-5 L CL (test code = 8533906684) 91 mmol/L 98-108 L CO2 TOTAL (test code = 4780824573) 33 mmol/L 23-31 H AGAP (test code = 5853597655) 2-16 BUN (test code = 6343806826) 57 mg/dL 7-23 H GLUCOSE (test code = 1169443628) 285 mg/dL 70-110 H CREATININE (test code = 1.56 mg/dL 0.6-1.25 H 9786335899) CALCIUM (test code = 7576958987) 9.2 mg/dL 8.6-10.6 eGFR (test code = 5576649468) mL/min/1.73m2 ALYSSA (test code = ALYSSA) Association of Glomerular Filtration Rate (GFR) and Staging of Kidney Disease* + +-------- + ------+| GFR (mL/min/1.73 m2) ?| With Kidney Damage ?| ?Without Kidney Damage+ +-- + +| ?>90 ?| ?Stage one ?| ? Normal ?+ +------- + -------+| ?60-89 ?| ?Stage two ?| ? Decreased GFR ? + +-------- + ------+| ?30-59 ?| ?Stage three ?| ? Stage three ? + +-------- + ------+| ?15-29 ?| ?Stage four ? | ? Stage four ?+ +------- + -------+| ?<15 (or dialysis) ? ?| ?Stage five ? | ? Stage five ?+ +------- + -------+ *Each stage assumes the associated GFR [...] or abnormalities in imaging tests). Lab Interpretation (test code = Abnormal 83295-8) [facility] METABOLIC PANEL (NA, K, CL, CO2, GLUCOSE, BUN, CREATININE, CA)2022-05-30 09:08:14 Test Item Value Reference Range Interpretation Comments NA (test code = 132 mmol/L 135-145 L 8655828705) K (test code = 3.5 mmol/L 3.5-5 Slight 4286282434) hemolysis CL (test code = 90 mmol/L 98-108 L 7361935853) CO2 TOTAL (test code 33 mmol/L 23-31 H = 1751239611) AGAP (test code = 2-16 2131256664) BUN (test code = 37 mg/dL 7-23 H Slight 7674663900) hemolysis GLUCOSE (test code = 167 mg/dL 70-110 H 8866611379) CREATININE (test code 1.22 mg/dL 0.6-1.25 = 6273185748) CALCIUM (test code = 9.4 mg/dL 8.6-10.6 1340387801) eGFR (test code = mL/min/1.73m2 6994819805) ALYSSA (test code = ALYSSA) Association of Glomerular Filtration Rate (GFR) and Staging of Kidney Disease* + -----+ --------+ +| GFR (mL/min/1.73 m2) ?| With Kidney Damage ?| ?Without Kidney Damage+ +------- +---- --+| ?>90 ?| ?Stage one ?| ? Normal ?+ ------+ ---------+--------- +| ?60-89 ?| ?Stage two ?| ? Decreased GFR ? + -----+ --------+ +| ?30-59 ?| ?Stage three ?| ? Stage three ? + -----+ --------+ +| ?15-29 ?| ?Stage four ? | ? Stage four ?+ ------+ ---------+--------- +| ?<15 (or dialysis) ? ?| ?Stage five ? | ? Stage five ?+ ------+ ---------+--------- + *Each stage assumes the associated GFR [...] tests). Lab Interpretation Abnormal (test code = 98210-8) [facility] [id number] 10:06:48 Test Item Value Reference Range Interpretation Comments NT-proBNP (test code 2940 pg/mL See_Comment H [Autom ated = 7594888937) message] The system which generated this result transmitted reference range : <=450. The reference range was not used to interpret this result as normal/abnormal . ALYSSA (test code = ALYSSA) Biotin has been reported to cause a negative bias, interpret results relative to patient's use of biotin. Lab Interpretation Abnormal (test code = 84598-9) [facility] (NA, K, CL, CO2, GLUCOSE, BUN, CREATININE, CA)2022-05-29 09:58:43 Test Item Value Reference Range Interpretation Comments NA (test code = 133 mmol/L 135-145 L 4151810363) K (test code = 3.5 mmol/L 3.5-5 8901483582) CL (test code = 93 mmol/L 98-108 L 4714520615) CO2 TOTAL (test code = 30 mmol/L 23-31 1986571641) AGAP (test code = 2-16 3693324772) BUN (test code = 31 mg/dL 7-23 H 3826786034) GLUCOSE (test code = 167 mg/dL 70-110 H 4000726635) CREATININE (test code = 1.24 mg/dL 0.6-1.25 0628837697) CALCIUM (test code = 9.4 mg/dL 8.6-10.6 6883968484) eGFR (test code = mL/min/1.73m2 6960264964) ALYSSA (test code = ALYSSA) Association of [...] tests). Lab Interpretation Abnormal (test code = 81003-4) [facility] WITH [id number] 08:08:05 Test Item Value Reference Range Interpretation Comments WBC (test code = See_Comment [Automated 4163-2) message] The sy stem which generated this [...] as normal/abnormal . HGB (test code = 11.8 g/dL 12.2-16.4 L 718-7) HCT (test code = 33.2 % 38.4-49.3 L 4544-3) MCV (test code = 91.7 fL 81.7-95.6 787-2) MCH (test code = 32.6 pg 26.1-32.7 785-6) MCHC (test code = 35.5 g/dL 31.2-35 H 786-4) RDW-SD (test code = 47.3 fL 38.5-51.6 86727-5) RDW-CV (test code = 14.0 % 12.1-15.4 788-0) PLT (test code = See_Comment [Automated 777-3) message] The sy stem which generated this result transmitted reference range : 150 - 328 10*3/ ?L. The reference r corey was not used to interpret this result as normal/abnormal . MPV (test code = 9.6 fL 9.8-13 L 48181-8) NRBC/100 WBC (test See_Comment [Automat ed code = 8209947082) message] The system which generated this result transmitted reference range : 0.0 - 10.0 /100 WBCs. The refer ence range was not u sed to interpret th is result as normal/abnormal . NRBC x10^3 (test code See_Comment [Auto mated = 7737634507) message] The s ystem which generated this result transmitted reference range : 10*3/?L. The reference range was not used to interpret this result as normal/abnormal . GRAN MAT (NEUT) % 65.6 % (test code = 770-8) IMM GRAN % (test code 0.40 % = 1215187252) LYMPH % (test code = 20.0 % 736-9) MONO % (test code = 10.4 % 5905-5) EOS % (test code = 3.1 % 713-8) BASO % (test code = 0.5 % 706-2) GRAN MAT x10^3(ANC) 3.58 10*3/uL 1.99-6.95 (test code = 0060022277) IMM GRAN x10^3 (test 0-0.06 code = 0808934907) LYMPH x10^3 (test code 1.09 10*3/uL 1.09-3.23 = 731-0) MONO x10^3 (test code 0.57 10*3/uL 0.36-1.02 = 742-7) EOS x10^3 (test code = 0.17 10*3/uL 0.06-0.53 711-2) BASO x10^3 (test code 0.03 10*3/uL 0.01-0.09 = 704-7) Lab Interpretation Abnormal (test code = 54169-7) [facility] [id number] 10:55:38 Test Item Value Reference Range Interpretation Comments NT-proBNP (test code 3040 pg/mL See_Comment H [Autom ated = 6569937039) message] The system which generated this result transmitted reference range : <=450. The reference range was not used to interpret this result as normal/abnormal . ALYSSA (test code = ALYSSA) Biotin has been reported to cause a negative bias, interpret results relative to patient's use of biotin. Lab Interpretation Abnormal (test code = 21925-0) [facility] (NA, K, CL, CO2, GLUCOSE, BUN, CREATININE, CA)2022-05-27 10:49:39 Test Item Value Reference Range Interpretation Comments NA (test code = 134 mmol/L 135-145 L 3239179259) K (test code = 4.1 mmol/L 3.5-5 7277197526) CL (test code = 96 mmol/L 98-108 L 7837027861) CO2 TOTAL (test code = 31 mmol/L 23-31 0103314224) AGAP (test code = 2-16 1452040876) BUN (test code = 28 mg/dL 7-23 H 9068110775) GLUCOSE (test code = 216 mg/dL 70-110 H 2083280103) CREATININE (test code = 1.07 mg/dL 0.6-1.25 8571075865) CALCIUM (test code = 8.8 mg/dL 8.6-10.6 2378301522) eGFR (test code = mL/min/1.73m2 0335368923) ALYSSA (test code = ALYSSA) Association of [...] tests). Lab Interpretation Abnormal (test code = 82814-2) [facility]E)2022-05-27 00:13:45 Test Item Value Reference Range Interpretation Comments Height (test code = in 0185432569) Weight (test code = lbs 1794969511) Systolic BP (test code = mmHg 9290852065) Diastolic BP (test code mmHg = 8267022491) Heart Rate (test code = bpm 7279626922) LVOT stroke volume (test 31.80 cm3 code = 9472377331) EF(Teich) (test code = 18.40 % 1561171887) LVIDD (test code = 6.30 cm 4432627710) LVIDS (test code = 5.80 cm 6386765186) IVS (test code = 0.75 cm 2313683632) LVPWD (test code = 0.94 cm 9556800499) LVOT diameter (test code 1.95 cm = 8918660082) FS (test code = 9 % 4470840020) MV Peak E Nestor (test code 121.4 cm/s = 8350084701) E wave decelartion time 0.09 s (test code = 6611338055) MV E/e' septal (test 5.0 cm/s code = 4427002674) LA Volume Index (BP) 42.0 mL/m2 (test code = 5067160518) LA volume (BP) (test 74.6 mL code = 0531268004) LVOT peak nestor (test code 79.9 cm/s = 0748115775) LVOT mn grad (test code mmHg = 1962439935) BSA (test code = 1.78 m2 6365599407) LA size (test code = 2.6 cm 4198327145) LAV(MOD-sp2) (test code 82.10 mL = 6339991380) LAV(MOD-sp4) (test code 60.20 mL = 8112758889) Tapse (test code = 2.08 cm 1622545944) AV LVOT peak gradient mmHg (test code = 4362777791) LVOT peak VTI (test code 10.6 cm = 6270280888) LV V1 mean (test code = 48.50 cm/s 9918396245) MV Prop V (test code = 44.70 cm/s 8820682912) Ao root annulus (test 3.5 cm code = 5508003733) Ao root diam (test code 3.50 cm = 4647873014) Aortic root (test code = 3.5 cm 8614120105) PW (test code = 0.94 cm 0.6-1.1 1061471566) EF - 2D (test code = 18.40 % 33982433) Interventricular Septum 0.75 cm Diastolic Thickness by 2D (test code = 5485737) MV Peak A Nestor (test code 26.3 cm/s = 7144395586) E/A ratio (test code = ratio 5082115205) Aortic valve mean 113.4 cm/s velocity (test code = 2390695621) Ao peak nestor (test code = 150.5 cm/s 9800210653) Ao VTI (test code = 21.6 cm 2622861052) AV area by cont VTI 1.5 cm2 (test code = 8135081406) AV area peak nestor (test 1.6 cm2 code = 1876564973) Ao max PG (test code = 9.10 mm[Hg] 9939436290) AV peak gradient (test mmHg code = 8300894248) AV valve area (test code 1.48 cm2 = 2674753568) AV mean gradient (test mmHg code = 1361889892) Radiology Study observation (narrative) (test code = 11712-4) ALYSSA (test code = ALYSSA) Formatting of this result is different from the original. ?Left?Ventricle: Left ventricle is severely dilated. Normal wall thickness. Severe global hypokinesis present. Severely reduced systolic function with a visually estimated EF of 15 - 20%. Abnormal left ventricle diastolic function ( can't be graded due to E/A fusion) ?Right?Ventricle: Right ventricle is normal in size and function. ?Left?Atrium: Left atrium is moderately dilated. Left atrium volume index is 42.0 mL/m2. ?Tricuspid?Valve: Tricuspid valve structure is normal. Insufficient tricuspid regurgitation jet to estimate RVSP.RA pressure is 0-5 mmHg. ?Pericardium: The pericardium is normal. Left VentricleLeft ventricle is severely dilated. Normal wall thickness. Severe global hypokinesis present. Severely reduced systolic function with a visually estimated EF of 15 - 20%. Abnormal left ventricle diastolic function ( can't be graded due to E/A fusion)Right VentricleRight ventricle is normal in size and function.Left AtriumLeft atrium is moderately dilated. Left atrium volume index is 42.0 mL/m2.Right AtriumRight atrium size is normal.IVC/SVCIVC diameter is less than or equal to 21 mm and decreases greater than 50% during inspiration; therefore the estimated right atrial pressure is normal (~0-5 mmHg).Mitral ValveMitral valve structure is normal. Moderate mitral annular calcification. Trace transvalvular regurgitation.Tricusp id ValveTricuspid valve structure is normal. Insufficient tricuspid regurgitation jet to estimate RVSP.RA pressure is 0-5 mmHg.Aortic ValveAortic valve opens well. Mildly calcified cusps. No hemodynamically significant .Pulmonic ValveNot well visualized. Pulmonic valve is normal in structure and function.Ascending AortaAorta is normal in size.PericardiumThe pericardium is normal.Study DetailsStudy quality was adequate. A complete echocardiogram was performed using 2D, color flow Doppler and spectral Doppler. 5 mL of Lumason ultrasound enhancing agent used. [id number] 20:13:11 Test Item Value Reference Interpretation Comments Range D-DIMER (test code = See_Comment H [Autom ated 6027813836) message] The system which generated this result transmitted reference range : <0.50 ?g/mL (FEU). The reference range was not used to interpret this result as normal/abnormal . ALYSSA (test code = This test may be ALYSSA) used in conjunction with a clinical pretest probability (PTP) assessment model to exclude venous thromboembolism (VTE) in patients suspected of deep venous thrombosis (DVT) and pulmonary embolism (PE) A D-Dimer value less than 0.50 ?g/ml (FEU) has a negative predicative value of 96 to 100% (95% CI)and 97 to 100% (95% CI) as an aid in the diagnosis of deep vein thrombosis (DVT) and pulmonary embolism when there is low or moderate pretest probability of PE or DVT. D-Dimer values are expressed in initial fibrinogen equivalent units (FEU)" The assay results should be used with other information, including the clinical context, in forming a diagnosis. Lab Interpretation Abnormal (test code = 73303-5) [facility]TR[facility] [id number] 14:26:05 Test Item Value Reference Interpretation Comments Range TROPONIN I (test 0.069 ng/mL See_Comment H [Automated code = 0833195552) message] The system which generated this result [...] biotin. Lab Interpretation Abnormal (test code = 82739-9) [facility] METABOLIC PANEL (NA, K, CL, CO2, GLUCOSE, BUN, CREATININE, CA)2022-05-25 14:14:22 Test Item Value Reference Range Interpretation Comments NA (test code = 136 mmol/L 135-145 8236400088) K (test code = 3.8 mmol/L 3.5-5 4373696381) CL (test code = 102 mmol/L 98-108 6838239314) CO2 TOTAL (test code 26 mmol/L 23-31 = 5166489117) AGAP (test code = 2-16 3550135577) BUN (test code = 19 mg/dL 7-23 1013303744) GLUCOSE (test code = 94 mg/dL 70-110 0515070118) CREATININE (test code 0.97 mg/dL 0.6-1.25 = 5436757045) CALCIUM (test code = 8.8 mg/dL 8.6-10.6 9009617183) eGFR (test code = mL/min/1.73m2 8561471004) ALYSSA (test code = ALYSSA) Association of Glomerular Filtration Rate (GFR) and Staging of Kidney Disease* + + +- +| GFR (mL/min/1.73 m2) ?| With Kidney Damage ?| ?Without Kidney Damage+ ------+ ----+ ------+| ?>90 ?| ?Stage one ?| ? Normal ?+ -+ + -+| ?60-89 ?| ?Stage two ?| ? Decreased GFR ? + + +- +| ?30-59 ?| ?Stage three ?| ? Stage three ? + + +- +| ?15-29 ?| ?Stage four ? | ? Stage four ?+ -+ + -+| ?<15 (or dialysis) ? ?| ?Stage five ? | ? Stage five ?+ -+ + -+ *Each stage assumes the associated GFR level [...] or urine or abnormalities in imaging tests). [facility]MINAL [id number] 18:14:14 Test Item Value Reference Range Interpretation Comments NT-proBNP (test code 7300 pg/mL See_Comment H [Autom ated = 7376131658) message] The system which generated this result transmitted reference range : <=450. The reference range was not used to interpret this result as normal/abnormal . ALYSSA (test code = ALYSSA) Biotin has been reported to cause a negative bias, interpret results relative to patient's use of biotin. Lab Interpretation Abnormal (test code = 04817-1) [facility]2022-05-24 16:04:15 Test Item Value Reference Range Interpretation Comments POCT GLU (test code = 0300114841) 107 mg/dL 70-110 Lab Interpretation (test code = Normal 53728-0) [facility] DallasCOMP. METABOLIC PANEL (89583)2022-05-24 05:16:06 Test Item Value Reference Range Interpretation Comments NA (test code = 134 mmol/L 135-145 L 9585038253) K (test code = 3.8 mmol/L 3.5-5 1839853306) CL (test code = 100 mmol/L 98-108 2893472638) CO2 TOTAL (test code = 23 mmol/L 23-31 6650845016) AGAP (test code = 2-16 7495455882) BUN (test code = 18 mg/dL 7-23 3349856844) GLUCOSE (test code = 179 mg/dL 70-110 H 7452603916) CREATININE (test code = 1.07 mg/dL 0.6-1.25 6823571329) TOTAL BILI (test code = 1.4 mg/dL 0.1-1.1 H 8970801503) CALCIUM (test code = 9.1 mg/dL 8.6-10.6 0209309675) T PROTEIN (test code = 6.0 g/dL 6.3-8.2 L 2994813581) ALBUMIN (test code = 3.6 g/dL 3.5-5 5357206290) ALK PHOS (test code = 98 U/L 34-122 9950557611) ALTv (test code = 14 U/L 5-50 1742-6) AST(SGOT) (test code = 23 U/L 13-40 1523029246) eGFR (test code = mL/min/1.73m2 5550809340) ALYSSA (test code = ALYSSA) Association of [...] tests). Lab Interpretation Abnormal (test code = 61214-7) [facility] DallasWENDY [id number] 04:57:41 Test Item Value Reference Interpretation Comments Range TROPONIN I (test 0.086 ng/mL See_Comment H [Automated code = 0080320939) message] The system which generated this result [...] biotin. Lab Interpretation Abnormal (test code = 27300-4) [facility] WITH [id number] 04:40:23 Test Item Value Reference Range Interpretation Comments WBC (test code = See_Comment [Automated 8928-2) message] The sy stem which generated this [...] as normal/abnormal . HGB (test code = 11.5 g/dL 12.2-16.4 L 718-7) HCT (test code = 32.6 % 38.4-49.3 L 4544-3) MCV (test code = 92.6 fL 81.7-95.6 787-2) MCH (test code = 32.7 pg 26.1-32.7 785-6) MCHC (test code = 35.3 g/dL 31.2-35 H 786-4) RDW-SD (test code = 48.0 fL 38.5-51.6 02199-5) RDW-CV (test code = 14.1 % 12.1-15.4 788-0) PLT (test code = See_Comment [Automated 777-3) message] The sy stem which generated this result transmitted reference range : 150 - 328 10*3/ ?L. The reference r corey was not used to interpret this result as normal/abnormal . MPV (test code = 9.8 fL 9.8-13 51334-9) NRBC/100 WBC (test See_Comment [Automat ed code = 4850622501) message] The system which generated this result transmitted reference range : 0.0 - 10.0 /100 WBCs. The refer ence range was not u sed to interpret th is result as normal/abnormal . NRBC x10^3 (test code See_Comment [Auto mated = 3158378914) message] The s ystem which generated this result transmitted reference range : 10*3/?L. The reference range was not used to interpret this result as normal/abnormal . GRAN MAT (NEUT) % 77.1 % (test code = 770-8) IMM GRAN % (test code 0.30 % = 3143941185) LYMPH % (test code = 11.4 % 736-9) MONO % (test code = 9.5 % 5905-5) EOS % (test code = 1.4 % 713-8) BASO % (test code = 0.3 % 706-2) GRAN MAT x10^3(ANC) 5.06 10*3/uL 1.99-6.95 (test code = 7749250368) IMM GRAN x10^3 (test 0-0.06 code = 7701224335) LYMPH x10^3 (test code 0.75 10*3/uL 1.09-3.23 L = 731-0) MONO x10^3 (test code 0.62 10*3/uL 0.36-1.02 = 742-7) EOS x10^3 (test code = 0.09 10*3/uL 0.06-0.53 711-2) BASO x10^3 (test code 0.01-0.09 = 704-7) Lab Interpretation Abnormal (test code = 06908-6) [facility] DallasSARS-CoV-2 (COVID-19) RNA [Presence] in Respiratory specimen by ERI with probe [id number] 07:04:48 Test Item Value Reference Range Interpretation Comments SARS-CoV-2 (COVID-19) RNA Not detected Not-Detected [Presence] in Respiratory specimen by ERI with probe detection (test code = 59671-9) 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 (test code = 03687-3) Whether the patient has symptoms related to condition of interest (test code = 71062-1) Patient was hospitalized because of this condition (test code = 50423-0) Whether the patient was admitted to intensive care unit (ICU) for condition of interest (test code = 66087-9) Whether patient resides in a congregate care setting (test code = 14670-4) POCT GLUCOSE (AUTOMATED)2021-11-02 22:57:12 Test Item Value Reference Range Interpretation Comments POCT GLU (test code = 9426671322) 224 mg/dL 70-110 H Lab Interpretation (test code = Abnormal 93862-6) [facility] DallasEKG-12 LEAD ROUTINE [id number] 22:37:57 Test Item Value Reference Range Interpretation Comments Lab Interpretation (test code = Abnormal 04110-4) [facility]2021-11-02 17:43:02 Test Item Value Reference Range Interpretation Comments POCT GLU (test code = 0377630314) 264 mg/dL 70-110 H Lab Interpretation (test code = Abnormal 24815-8) [facility] DallasTROPONIN [id number] 15:07:47 Test Item Value Reference Interpretation Comments Range TROPONIN I (test 0.064 ng/mL See_Comment H [Automated code = 6822974347) message] The system which generated this result [...] biotin. Lab Interpretation Abnormal (test code = 41796-0) [facility] DallasN-[facility]MINAL [id number] 15:04:26 Test Item Value Reference Range Interpretation Comments NT-proBNP (test code 800 pg/mL See_Comment H [Autom ated = 0761790135) message] The system which generated this result transmitted reference range : <=450. The reference range was not used to interpret this result as normal/abnormal . ALYSSA (test code = ALYSSA) Biotin has been reported to cause a negative bias, interpret results relative to patient's use of biotin. Lab Interpretation Abnormal (test code = 76429-4) [facility] GLUCOSE (AUTOMATED)2021-11-02 13:36:38 Test Item Value Reference Range Interpretation Comments POCT GLU (test code = 2346430418) 185 mg/dL 70-110 H Lab Interpretation (test code = Abnormal 61265-6) [facility] METABOLIC PANEL (NA, K, CL, CO2, GLUCOSE, BUN, CREATININE, CA)2021-11-02 10:26:43 Test Item Value Reference Range Interpretation Comments NA (test code = 136 mmol/L 135-145 4040625503) K (test code = 4.0 mmol/L 3.5-5.0 4689117061) CL (test code = 99 mmol/L 98-108 1174368497) CO2 TOTAL (test code = 27 mmol/L 23-31 2632426633) AGAP (test code = 2-16 4150542381) BUN (test code = 30 mg/dL 7-23 H 6370439755) GLUCOSE (test code = 165 mg/dL 70-110 H 9957310229) CREATININE (test code = 1.42 mg/dL 0.60-1.25 H 7864807696) CALCIUM (test code = 9.5 mg/dL 8.6-10.6 8241290740) eGFR (test code = mL/min/1.73m2 2557617359) ALYSSA (test code = ALYSSA) Association of [...] tests). Lab Interpretation Abnormal (test code = 84392-9) [facility] WITH [id number] 10:01:58 Test Item Value Reference Range Interpretation Comments WBC (test code = See_Comment [Automated 4467-2) message] The sy stem which generated this [...] RDW-SD (test code = 39.8 fL 38.5-51.6 12953-5) RDW-CV (test code = 11.5 % 12.1-15.4 L 788-0) PLT (test code = See_Comment [Automated 777-3) message] The sy stem which generated this result transmitted reference range : 150 - 328 10*3/ ?L. The reference r corey was not used to interpret this result as normal/abnormal . MPV (test code = 10.5 fL 9.8-13.0 19035-5) NRBC/100 WBC (test See_Comment [Automat ed code = 8511175331) message] The system which generated this result transmitted reference range : 0.0 - 10.0 /100 WBCs. The refer ence range was not u sed to interpret th is result as normal/abnormal . NRBC x10^3 (test code <0.01 See_Comment [Auto mated = 1924767900) message] The s ystem which generated this result transmitted reference range : 10*3/?L. The reference range was not used to interpret this result as normal/abnormal . GRAN MAT (NEUT) % 59.3 % (test code = 770-8) IMM GRAN % (test code 0.30 % = 3088519530) LYMPH % (test code = 25.0 % 736-9) MONO % (test code = 10.7 % 5905-5) EOS % (test code = 4.1 % 713-8) BASO % (test code = 0.6 % 706-2) GRAN MAT x10^3(ANC) 4.19 10*3/uL 1.99-6.95 (test code = 0734737140) IMM GRAN x10^3 (test <0.03 0.00-0.06 code = 8031675813) LYMPH x10^3 (test code 1.77 10*3/uL 1.09-3.23 = 731-0) MONO x10^3 (test code 0.76 10*3/uL 0.36-1.02 = 742-7) EOS x10^3 (test code = 0.29 10*3/uL 0.06-0.53 711-2) BASO x10^3 (test code 0.04 10*3/uL 0.01-0.09 = 704-7) Lab Interpretation Abnormal (test code = 25219-4) [facility] GLUCOSE (AUTOMATED)2021-11-02 01:29:56 Test Item Value Reference Range Interpretation Comments POCT GLU (test code = 5692248319) 167 mg/dL 70-110 H Lab Interpretation (test code = Abnormal 68799-2) [facility] GLUCOSE (AUTOMATED)2021-11-01 17:40:19 Test Item Value Reference Range Interpretation Comments POCT GLU (test code = 8684427159) 193 mg/dL 70-110 H Lab Interpretation (test code = Abnormal 53351-1) [facility] GLUCOSE (AUTOMATED)2021-11-01 13:44:28 Test Item Value Reference Range Interpretation Comments POCT GLU (test code = 8395623708) 200 mg/dL 70-110 H Lab Interpretation (test code = Abnormal 04018-0) [facility] GLUCOSE (AUTOMATED)2021-11-01 01:38:43 Test Item Value Reference Range Interpretation Comments POCT GLU (test code = 6781535346) 177 mg/dL 70-110 H Lab Interpretation (test code = Abnormal 16581-2) [facility] GLUCOSE (AUTOMATED)2021-10-31 22:39:43 Test Item Value Reference Range Interpretation Comments POCT GLU (test code = 4282594274) 174 mg/dL 70-110 H Lab Interpretation (test code = Abnormal 07977-4) [facility] GLUCOSE (AUTOMATED)2021-10-31 17:40:22 Test Item Value Reference Range Interpretation Comments POCT GLU (test code = 4357034334) 224 mg/dL 70-110 H Lab Interpretation (test code = Abnormal 09874-0) [facility] DallasTROPONIN [id number] 17:14:58 Test Item Value Reference Interpretation Comments Range TROPONIN I (test 0.080 ng/mL See_Comment H [Automated code = 9263976391) message] The system which generated this result [...] biotin. Lab Interpretation Abnormal (test code = 71443-6) [facility] DallasN-TERMINAL [id number] 15:14:03 Test Item Value Reference Range Interpretation Comments NT-proBNP (test code 474 pg/mL See_Comment H [Autom ated = 2539454390) message] The system which generated this result transmitted reference range : <=450. The reference range was not used to interpret this result as normal/abnormal . ALYSSA (test code = ALYSSA) Biotin has been reported to cause a negative bias, interpret results relative to patient's use of biotin. Lab Interpretation Abnormal (test code = 18091-3) [facility] DallasLIPID PANEL (88303)(TOTAL CHOLESTEROL, TRIGLYCERIDES, HDL)2021-10-31 15:05:19 Test Item Value Reference Range Interpretation Comments CHOL (test code = 101 mg/dL 120-200 L 3111255352) HDL (test code = 36 mg/dL >40 L 1135487327) HDLC RATIO (test code = See_Comment [Au tomated message] 4239253496) The system [employer] generated this result transmit diamante reference range : <=5.0. The refe rence range was not u sed to interpret th is result as normal/abnormal . TRIG (test code = 143 mg/dL 30-170 3816059263) LDL CHOL (test code = 36 mg/dL See_Comment [Auto mated message] 89784-8) The system [employer] generated this result transmit diamante reference range : <=160. The refe rence range was not u sed to interpret th is result as normal/abnormal . VLDL (test code = 29 mg/dL 5-60 1634626975) Lab Interpretation (test Abnormal code = 50599-1) [facility]PO[facility]2021-10-31 13:44:00 Test Item Value Reference Range Interpretation Comments POCT GLU (test code = 5495317523) 150 mg/dL 70-110 H Lab Interpretation (test code = Abnormal 33792-2) [facility] with [id number] 11:13:14 Test Item Value Reference Range Interpretation [...] RDW-SD (test code = 39.9 fL 38.5-51.6 73614-4) RDW-CV (test code = 11.8 % 12.1-15.4 L 788-0) PLT (test code = See_Comment [Automated 777-3) message] The sy stem which generated this result transmitted reference range : 150 - 328 10*3/ ?L. The reference r corey was not used to interpret this result as normal/abnormal . MPV (test code = 11.0 fL 9.8-13.0 13852-1) NRBC/100 WBC (test See_Comment [Automat ed code = 6412504154) message] The system which generated this result transmitted reference range : 0.0 - 10.0 /100 WBCs. The refer ence range was not u sed to interpret th is result as normal/abnormal . NRBC x10^3 (test code <0.01 See_Comment [Auto mated = 7660392543) message] The s ystem which generated this result transmitted reference range : 10*3/?L. The reference range was not used to interpret this result as normal/abnormal . GRAN MAT (NEUT) % 64.3 % (test code = 770-8) IMM GRAN % (test code 0.30 % = 7302694617) LYMPH % (test code = 21.7 % 736-9) MONO % (test code = 10.0 % 5905-5) EOS % (test code = 3.1 % 713-8) BASO % (test code = 0.6 % 706-2) GRAN MAT x10^3(ANC) 4.35 10*3/uL 1.99-6.95 (test code = 4344744381) IMM GRAN x10^3 (test <0.03 0.00-0.06 code = 8967110637) LYMPH x10^3 (test code 1.47 10*3/uL 1.09-3.23 = 731-0) MONO x10^3 (test code 0.68 10*3/uL 0.36-1.02 = 742-7) EOS x10^3 (test code = 0.21 10*3/uL 0.06-0.53 711-2) BASO x10^3 (test code 0.04 10*3/uL 0.01-0.09 = 704-7) Lab Interpretation Abnormal (test code = 97601-7) [facility] DallasKARINFORMERLY [facility] SYSTEMCHRISTOPHERJr [id number] 11:09:53 Test Item Value Reference Interpretation Comments Range TROPONIN I (test 0.101 ng/mL See_Comment H [Automated code = 4372779949) message] The system which generated this result [...] biotin. Lab Interpretation Abnormal (test code = 09370-2) [facility] Metabolic Panel (NA, K, CL, CO2, GLUCOSE, BUN, CREATININE, CA)2021-10-31 10:59:31 Test Item Value Reference Range Interpretation Comments NA (test code = 139 mmol/L 135-145 9749930430) K (test code = 4.1 mmol/L 3.5-5.0 0617969526) CL (test code = 103 mmol/L 98-108 5527566346) CO2 TOTAL (test code = 28 mmol/L 23-31 8133467560) AGAP (test code = 2-16 5338553482) BUN (test code = 43 mg/dL 7-23 H 2940040946) GLUCOSE (test code = 165 mg/dL 70-110 H 7906631249) CREATININE (test code = 1.68 mg/dL 0.60-1.25 H 8374057431) CALCIUM (test code = 9.6 mg/dL 8.6-10.6 3077688287) eGFR (test code = mL/min/1.73m2 2934003918) ALYSSA (test code = ALYSSA) Association of [...] tests). Lab Interpretation Abnormal (test code = 73381-3) [facility] DallasGlycosylated Hemoglobin (A1C)2021-10-31 09:13:40 Test Item Value Reference Range Interpretation Comments HGB A1C (test code = 6.8 % 4.0-5.7 H 4548-4) ALYSSA (test code = ALYSSA) Reference RangesNormal: <5.7%Prediabetes: 5.7 - 6.4%Diabetes: > 6.5% Lab Interpretation (test Abnormal code = 99712-3) [facility] [id number] 06:48:18 Test Item Value Reference Interpretation Comments Range TROPONIN I (test 0.082 ng/mL See_Comment H [Automated code = 5818452096) message] The system which generated this result [...] biotin. Lab Interpretation Abnormal (test code = 99793-5) [facility] [id number] 02:09:48 Test Item Value Reference Interpretation Comments Range TROPONIN I (test 0.067 ng/mL See_Comment H [Automated code = 9720443922) message] The system which generated this result [...] biotin. Lab Interpretation Abnormal (test code = 45760-8) [facility] DallasN-TERMINAL [id number] 02:06:31 Test Item Value Reference Range Interpretation Comments NT-proBNP (test code 318 pg/mL See_Comment [Autom ated = 7550723611) message] The system which generated this result transmitted reference range : <=450. The reference range was not used to interpret this result as normal/abnormal . ALYSSA (test code = ALYSSA) Biotin has been reported to cause a negative bias, interpret results relative to patient's use of biotin. Lab Interpretation Normal (test code = 16002-8) [facility] DallasCOMP. METABOLIC PANEL (45689)2021-10-31 01:58:28 Test Item Value Reference Range Interpretation Comments NA (test code = 137 mmol/L 135-145 3809883373) K (test code = 4.1 mmol/L 3.5-5.0 5965581320) CL (test code = 101 mmol/L 98-108 0405077994) CO2 TOTAL (test code = 26 mmol/L 23-31 9484915446) AGAP (test code = 2-16 7838167833) BUN (test code = 46 mg/dL 7-23 H 1931438719) GLUCOSE (test code = 213 mg/dL 70-110 H 6120657776) CREATININE (test code = 1.96 mg/dL 0.60-1.25 H 2077340302) TOTAL BILI (test code = 0.9 mg/dL 0.1-1.0 3892988179) CALCIUM (test code = 9.7 mg/dL 8.6-10.6 2542806578) T PROTEIN (test code = 7.0 g/dL 6.3-8.2 4381691034) ALBUMIN (test code = 4.3 g/dL 3.5-5.0 7098416267) ALK PHOS (test code = 58 U/L 34-122 2024668513) ALTv (test code = 20 U/L 5-50 1742-6) AST(SGOT) (test code = 27 U/L 13-40 0451795359) eGFR (test code = mL/min/1.73m2 6384988889) ALYSSA (test code = ALYSSA) Association of [...] tests). Lab Interpretation Abnormal (test code = 41776-5) [facility] DallasLIPASE, [id number] 01:57:48 Test Item Value Reference Range Interpretation Comments LIPASE (test code = 4457996442) 330 U/L 0-220 H Lab Interpretation (test code = Abnormal 04310-8) [facility] DallasaPTT2021-12-16 01:55:04 Test Item Value Reference Range Interpretation Comments APTT Patient (test See_Comment [Automat ed code = 3173-2) message] The system which generated this result transmitted reference range : 23 - 38 Seconds . The reference range was not used to interpr et this result as normal/abnormal . ALYSSA (test code = ALYSSA) The [facility] patient population mean normal value for aPTT is 30 seconds. Lab Interpretation Normal (test code = 36174-3) [facility] DallasPROTHROMBIN TIME / [id number] 01:53:08 Test Item Value Reference Range Interpretation [...] tions. Lab Interpretation (test Normal code = 17783-2) [facility] DallasCB WITH [id number] 01:45:44 Test Item Value Reference Range Interpretation [...] RDW-SD (test code = 39.1 fL 38.5-51.6 13345-7) RDW-CV (test code = 11.6 % 12.1-15.4 L 788-0) PLT (test code = See_Comment [Automated 777-3) message] The sy stem which generated this result transmitted reference range : 150 - 328 10*3/ ?L. The reference r corey was not used to interpret this result as normal/abnormal . MPV (test code = 10.4 fL 9.8-13.0 71604-1) NRBC/100 WBC (test See_Comment [Automat ed code = 5718371892) message] The system which generated this result transmitted reference range : 0.0 - 10.0 /100 WBCs. The refer ence range was not u sed to interpret th is result as normal/abnormal . NRBC x10^3 (test code <0.01 See_Comment [Auto mated = 5670561593) message] The s ystem which generated this result transmitted reference range : 10*3/?L. The reference range was not used to interpret this result as normal/abnormal . GRAN MAT (NEUT) % 62.1 % (test code = 770-8) IMM GRAN % (test code 0.30 % = 1470871513) LYMPH % (test code = 23.4 % 736-9) MONO % (test code = 10.8 % 5905-5) EOS % (test code = 2.9 % 713-8) BASO % (test code = 0.5 % 706-2) GRAN MAT x10^3(ANC) 4.14 10*3/uL 1.99-6.95 (test code = 3095551228) IMM GRAN x10^3 (test <0.03 0.00-0.06 code = 1617328195) LYMPH x10^3 (test code 1.56 10*3/uL 1.09-3.23 = 731-0) MONO x10^3 (test code 0.72 10*3/uL 0.36-1.02 = 742-7) EOS x10^3 (test code = 0.19 10*3/uL 0.06-0.53 711-2) BASO x10^3 (test code 0.03 10*3/uL 0.01-0.09 = 704-7) Lab Interpretation Abnormal (test code = 31402-5) [facility] DallasURINALYSIS2021-06-10 21:15:48 Test Item Value Reference Range Interpretation Comments APPEARANCE (test code = Clear Clear 9108673250) COLOR (test code = Yellow Yellow 2107826618) PH (test code = 4.8-8.0 5050735126) SP GRAVITY (test code = 1.003-1.030 8532742635) GLU U QUAL (test code = 50 mg/dL Normal A 7299255809) BLOOD (test code = Negative Negative INTERFERE NCE FROM 1586524884) ASCORBIC ACID M AY CAUSE FALSE NEG ATIVE RESULT KETONES (test code = Negative Negative 1363097420) PROTEIN (test code = Negative Negative 2887-8) UROBILIN (test code = Normal Normal 4515367762) BILIRUBIN (test code = Negative Negative 5271619621) NITRITE (test code = Negative Negative 6285189859) LEUK JESS (test code = Negative Negative 8633879413) RBC/HPF (test code = See_Comment [Autom ated message] 7860877776) The system [employer] generated this result transmitted ref erence range: 0 - 3 HP F. The reference range was not used to int erpret this result as normal/abnormal . WBC/HPF (test code = See_Comment [Autom ated message] 8376278528) The system [employer] generated this result transmitted ref erence range: 0 - 5 HP F. The reference range was not used to int erpret this result as normal/abnormal . BACTERIA (test code = Negative Negative 6333306694) SQ EPITH (test code = <1 See_Comment [Auto mated message] 8491279311) The system [employer] generated this result transmitted ref erence range: <=2 HPF. The reference range was not used to int erpret this result as normal/abnormal . HYAL CAST (test code = See_Comment [Aut omated message] 7473619178) The system [employer] generated this result transmitted ref erence range: <=2 LPF. The reference range was not used to int erpret this result as normal/abnormal . Lab Interpretation (test Abnormal code = 02258-6) [facility] LUMBAR SPINE 2 [id number] 20:30:53 Impression: Postoperative changes. Degenerative changes. No [...] acute fracture or dislocation identified. Atherosclerotic calcifications. [facility], Radiant Results Inft User -04/25/2021 3:31 PM [...] bony abnormality identified.End of Report.RL: [facility] [facility] 2 VW [id number] 20:24:52Impression: Postoperative changes. Degenerative changes. No acute [...] clinicalconcern MRI is available.End of Report.RL: 3901 [facility] (NA, K, CL, CO2, GLUCOSE, BUN, CREATININE, CA)2020-05-24 14:15:00 Test Item Value Reference Range Interpretation Comments NA (test code = 139 mmol/L 135-145 9783545946) K (test code = 4.1 mmol/L 3.5-5 4624126218) CL (test code = 104 mmol/L 98-108 5450774354) CO2 TOTAL (test code = 26 mmol/L 23-31 0830441286) AGAP (test code = 2-16 3106549797) BUN (test code = 22 mg/dL 7-23 6471668355) GLUCOSE (test code = 203 mg/dL 70-110 H 5501980482) CREATININE (test code = 1.40 mg/dL 0.6-1.25 H 7835994986) CALCIUM (test code = 9.1 mg/dL 8.6-10.6 0870927907) eGFR Calculation mL/min/1.73m2 (Non-) (test code = 2982119472) eGFR Calculation mL/min/1.73m2 () (test code = 6552266753) ALYSSA (test code = ALYSSA) Association of [...] tests). Lab Interpretation Abnormal (test code = 24034-5) [facility] (ALB, T.PRO, BILI T, BU/BC, ALT, AST, ALK PHOS)2020-05-24 13:54:00 Test Item Value Reference Range Interpretation Comments TOTAL BILI (test code = 4539876826) 0.9 mg/dL 0.1-1.1 BILI UNCON (test code = 7977689437) 1.0 mg/dL 0.1-1.1 BILI CONJ (test code = 7724639312) 0.0 mg/dL 0-0.3 T PROTEIN (test code = 8452343174) 7.0 g/dL 6.3-8.2 ALBUMIN (test code = 4481660130) 4.2 g/dL 3.5-5 ALK PHOS (test code = 1784502326) 49 U/L 34-122 ALTv (test code = 1742-6) 17 U/L 5-50 AST(SGOT) (test code = 8670064675) 25 U/L 13-40 Lab Interpretation (test code = Normal 68500-6) [facility]aPTT2020-07-09 13:32:00 Test Item Value Reference Range Interpretation Comments APTT Patient (test See_Comment [Automat ed code = 3173-2) message] The system which generated this result transmitted reference range : 23 - 38 Seconds . The reference range was not used to interpr et this result as normal/abnormal . ALYSSA (test code = ALYSSA) The [facility] patient population mean normal value for aPTT is 30 seconds. Lab Interpretation Normal (test code = 30931-0) [facility] DallasProthrombin Time (PT) / [id number] 13:30:00 Test Item Value Reference Range Interpretation [...] tions. Lab Interpretation (test Normal code = 23225-3) [facility] DallasCB WITH [id number] 13:27:00 Test Item Value Reference Range Interpretation [...] RDW-SD (test code = 42.6 fL 38.5-51.6 82659-7) RDW-CV (test code = 12.3 % 12.1-15.4 788-0) PLT (test code = See_Comment [Automated 777-3) message] The sy stem which generated this result transmitted reference range : 150 - 328 10*3/ ?L. The reference r corey was not used to interpret this result as normal/abnormal . MPV (test code = 9.9 fL 9.8-13 25330-4) NRBC/100 WBC (test See_Comment [Automat ed code = 2762640682) message] The system which generated this result transmitted reference range : 0.0 - 10.0 /100 WBCs. The refer ence range was not u sed to interpret th is result as normal/abnormal . NRBC x10^3 (test code <0.01 See_Comment [Auto mated = 5470030444) message] The s ystem which generated this result transmitted reference range : 10*3/?L. The reference range was not used to interpret this result as normal/abnormal . GRAN MAT (NEUT) % 55.1 % (test code = 770-8) IMM GRAN % (test code 0.20 % = 4471993281) LYMPH % (test code = 28.8 % 736-9) MONO % (test code = 11.3 % 5905-5) EOS % (test code = 3.5 % 713-8) BASO % (test code = 1.1 % 706-2) GRAN MAT x10^3(ANC) 3.11 10*3/uL 1.99-6.95 (test code = 8237099713) IMM GRAN x10^3 (test <0.03 0-0.06 code = 6250778908) LYMPH x10^3 (test code 1.63 10*3/uL 1.09-3.23 = 731-0) MONO x10^3 (test code 0.64 10*3/uL 0.36-1.02 = 742-7) EOS x10^3 (test code = 0.20 10*3/uL 0.06-0.53 711-2) BASO x10^3 (test code 0.06 10*3/uL 0.01-0.09 = 704-7) Lab Interpretation Abnormal (test code = 50453-9) [facility] ANKLE 3+ VW [id number] 13:25:58HISTORY: ?Pain. FINDINGS: AP, lateral, oblique views [...] No acute fracture or dislocation in left ankle.[facility] GLUCOSE (AUTOMATED)2020-03-23 22:34:00 Test Item Value Reference Range Interpretation Comments POCT GLU (test code = 4555041119) 173 mg/dL 70-110 H Lab Interpretation (test code = Abnormal 39615-4) [facility] GLUCOSE (AUTOMATED)2020-03-23 22:34:00 Test Item Value Reference Range Interpretation Comments POCT GLU (test code = 6871922572) 173 mg/dL 70-110 H Lab Interpretation (test code = Abnormal 71286-3) [facility] GLUCOSE (AUTOMATED)2020-03-23 18:12:00 Test Item Value Reference Range Interpretation Comments POCT GLU (test code = 165 mg/dL 70-110 H Notifi ed Provider [id number]) Lab Interpretation (test Abnormal code = 90882-0) [facility] GLUCOSE (AUTOMATED)2020-03-23 18:12:00 Test Item Value Reference Range Interpretation Comments POCT GLU (test code = 165 mg/dL 70-110 H Notifi ed Provider [id number]) Lab Interpretation (test Abnormal code = 13482-6) [facility] GLUCOSE (AUTOMATED)2020-03-23 15:04:00 Test Item Value Reference Range Interpretation Comments POCT GLU (test code = 114 mg/dL 70-110 H Notifi ed Provider [id number]) Lab Interpretation (test Abnormal code = 34651-6) [facility] GLUCOSE (AUTOMATED)2020-03-23 15:04:00 Test Item Value Reference Range Interpretation Comments POCT GLU (test code = 114 mg/dL 70-110 H Notifi ed Provider [id number]) Lab Interpretation (test Abnormal code = 94070-9) [facility] DallasFERRITIN [id number] 13:23:00 Test Item Value Reference Range Interpretation Comments FERRITIN (test code = 139.0 ng/mL 18-464 4289935173) ALYSSA (test code = ALYSSA) Biotin has been reported to cause a negative bias, interpret results relative to patient's use of biotin. Lab Interpretation (test Normal code = 86307-0) [facility] DallasFERRITIN [id number] 13:23:00 Test Item Value Reference Range Interpretation Comments FERRITIN (test code = 139.0 ng/mL 18-464 6672644316) ALYSSA (test code = ALYSSA) Biotin has been reported to cause a negative bias, interpret results relative to patient's use of biotin. Lab Interpretation (test Normal code = 45869-4) [facility] DallasIRON [id number] 12:53:00 Test Item Value Reference Range Interpretation Comments IRON (test code = 8642301230) 87 ug/dL 50-160 TIBC (test code = 6697105642) 385 ug/dL 250-410 % FE SAT (test code = 8021443371) 23 % 20-50 Lab Interpretation (test code = Normal 03287-3) [facility] DallasIRO [id number] 12:53:00 Test Item Value Reference Range Interpretation Comments IRON (test code = 2496908580) 87 ug/dL 50-160 TIBC (test code = 3151629745) 385 ug/dL 250-410 % FE SAT (test code = 6851015733) 23 % 20-50 Lab Interpretation (test code = Normal 63636-3) [place] [id number] 12:07:00 Test Item Value Reference Range Interpretation Comments APTT Patient (test code See_Comment [Au tomated message] = 3173-2) The system [employer] generated this result transmitted ref erence range: 26 - 36 Seconds. The reference range was not used to int erpret this result as normal/abnormal . Lab Interpretation (test Abnormal code = 39642-3) [facility] Test Item Value Reference Range Interpretation Comments APTT Patient (test code See_Comment [Au tomated message] = 3173-2) The system [employer] generated this result transmitted ref erence range: 26 - 36 Seconds. The reference range was not used to int erpret this result as normal/abnormal . Lab Interpretation (test Abnormal code = 14166-8) [facility] [id number] 11:57:00 Test Item Value Reference Range Interpretation Comments TROPONIN I (test 0.046 ng/mL See_Comment H [Automated code = 4358424189) message] The system which generated this result [...] ? Lab Interpretation Abnormal (test code = 56993-1) [facility] [id number] 11:57:00 Test Item Value Reference Range Interpretation Comments TROPONIN I (test 0.046 ng/mL See_Comment H [Automated code = 8771600254) message] The system which generated this result [...] ? Lab Interpretation Abnormal (test code = 77142-3) [facility]I METABOLIC PANEL (NA, K, CL, CO2, GLUCOSE, BUN, CREATININE, CA)2020-03-23 11:52:00 Test Item Value Reference Range Interpretation Comments NA (test code = 137 mmol/L 135-145 7182815691) K (test code = 4.1 mmol/L 3.5-5 9548870102) CL (test code = 102 mmol/L 98-108 6866808671) CO2 TOTAL (test code = 26 mmol/L 23-31 4292527170) AGAP (test code = 2-16 0005759468) BUN (test code = 18 mg/dL 7-23 8931347576) GLUCOSE (test code = 119 mg/dL 70-110 H 4173755534) CREATININE (test code = 1.14 mg/dL 0.6-1.25 1071445773) CALCIUM (test code = 9.1 mg/dL 8.6-10.6 6917222067) eGFR Calculation mL/min/1.73m2 (Non-) (test code = 9032667821) eGFR Calculation mL/min/1.73m2 () (test code = 9329556886) ALYSSA (test code = ALYSSA) Association of [...] tests). Lab Interpretation Abnormal (test code = 38680-9) [facility]MAGN[facility]IUM2020-05-08 11:52:00 Test Item Value Reference Range Interpretation Comments MAGNESIUM (test code = 2461407270) 2.2 mg/dL 1.7-2.4 Lab Interpretation (test code = Normal 59329-2) [facility] (NA, K, CL, CO2, GLUCOSE, BUN, CREATININE, CA)2020-03-23 11:52:00 Test Item Value Reference Range Interpretation Comments NA (test code = 137 mmol/L 135-145 8892056399) K (test code = 4.1 mmol/L 3.5-5 9434938936) CL (test code = 102 mmol/L 98-108 0708048034) CO2 TOTAL (test code = 26 mmol/L 23-31 0691135120) AGAP (test code = 2-16 6048117449) BUN (test code = 18 mg/dL 7-23 4839317655) GLUCOSE (test code = 119 mg/dL 70-110 H 9184190191) CREATININE (test code = 1.14 mg/dL 0.6-1.25 4199786067) CALCIUM (test code = 9.1 mg/dL 8.6-10.6 2155317085) eGFR Calculation mL/min/1.73m2 (Non-) (test code = 1032307748) eGFR Calculation mL/min/1.73m2 () (test code = 2439504750) ALYSSA (test code = ALYSSA) Association of [...] tests). Lab Interpretation Abnormal (test code = 31426-3) [facility]2020-05-08 11:52:00 Test Item Value Reference Range Interpretation Comments MAGNESIUM (test code = 5092759800) 2.2 mg/dL 1.7-2.4 Lab Interpretation (test code = Normal 53450-1) [facility] DallasProthrombin Time (PT) / [id number] 11:36:00 Test Item Value Reference Range Interpretation Comments PROTIME PATIENT (test See_Comment [Auto mated message] code = 5964-2) The system jigl generated this result transmitted ref erence range: 10.1 - 1 2.6 Seconds. The re ference range was not u sed to interpret this result as normal/abnor mal. INR (test code = 6301-6) Nor mal INR <1.1; Warfarin Therap eutic range 2.0 to 3. 0 or 2.5 to 3.5, dep ending upon the indica tions. Lab Interpretation (test Normal code = 27126-8) [facility] DallasProthrombin Time (PT) / [id number] 11:36:00 Test Item Value Reference Range Interpretation [...] tions. Lab Interpretation (test Normal code = 22013-1) [facility] [id number] 06:38:00 Test Item Value Reference Range Interpretation Comments TROPONIN I (test 0.045 ng/mL See_Comment H [Automated code = 4807406710) message] The system which generated this result [...] ? Lab Interpretation Abnormal (test code = 79952-4) [facility] [id number] 06:38:00 Test Item Value Reference Range Interpretation Comments TROPONIN I (test 0.045 ng/mL See_Comment H [Automated code = 1801217818) message] The system which generated this result [...] ? Lab Interpretation Abnormal (test code = 15834-1) [facility] (NA, K, CL, CO2, GLUCOSE, BUN, CREATININE, CA)2020-03-23 06:29:00 Test Item Value Reference Range Interpretation Comments NA (test code = 137 mmol/L 135-145 6366604735) K (test code = 3.6 mmol/L 3.5-5 8526117501) CL (test code = 101 mmol/L 98-108 1360014667) CO2 TOTAL (test code = 27 mmol/L 23-31 3281154045) AGAP (test code = 2-16 1975258177) BUN (test code = 19 mg/dL 7-23 7795665720) GLUCOSE (test code = 153 mg/dL 70-110 H 6006907544) CREATININE (test code = 1.22 mg/dL 0.6-1.25 6266176866) CALCIUM (test code = 8.9 mg/dL 8.6-10.6 7756297341) eGFR Calculation mL/min/1.73m2 (Non-) (test code = 0384584064) eGFR Calculation mL/min/1.73m2 () (test code = 3897644746) ALYSSA (test code = ALYSSA) Association of [...] tests). Lab Interpretation Abnormal (test code = 73744-3) [facility]2020-05-08 06:29:00 Test Item Value Reference Range Interpretation Comments MAGNESIUM (test code = 6457402566) 1.7 mg/dL 1.7-2.4 Lab Interpretation (test code = Normal 13365-9) [facility] DallasLIPID PANEL (61497)(TOTAL CHOLESTEROL, TRIGLYCERIDES, HDL)2020-03-23 06:29:00 Test Item Value Reference Range Interpretation Comments CHOL (test code = 106 mg/dL 120-200 L 2891542629) HDL (test code = 46 mg/dL >40 5864504107) HDLC RATIO (test code = See_Comment [Au tomated message] 1544042147) The system Zip[employer]hip generated this result transmit diamante reference range : <=5.0. The refe rence range was not u sed to interpret th is result as normal/abnormal . TRIG (test code = 74 mg/dL 30-170 7654845252) LDL CHOL (test code = 45 mg/dL See_Comment [Auto mated message] 96620-3) The system [employer] generated this result transmit diamante reference range : <=160. The refe rence range was not u sed to interpret th is result as normal/abnormal . VLDL (test code = 15 mg/dL 5-60 2904031012) Lab Interpretation (test Abnormal code = 05374-0) [facility] METABOLIC PANEL (NA, K, CL, CO2, GLUCOSE, BUN, CREATININE, CA)2020-03-23 06:29:00 Test Item Value Reference Range Interpretation Comments NA (test code = 137 mmol/L 135-145 0405246217) K (test code = 3.6 mmol/L 3.5-5 1664092601) CL (test code = 101 mmol/L 98-108 0673126041) CO2 TOTAL (test code = 27 mmol/L 23-31 5121540123) AGAP (test code = 2-16 5652321883) BUN (test code = 19 mg/dL 7-23 3148402500) GLUCOSE (test code = 153 mg/dL 70-110 H 0402901200) CREATININE (test code = 1.22 mg/dL 0.6-1.25 3383399282) CALCIUM (test code = 8.9 mg/dL 8.6-10.6 3281021847) eGFR Calculation mL/min/1.73m2 (Non-) (test code = 5554708607) eGFR Calculation mL/min/1.73m2 () (test code = 1026661216) ALYSSA (test code = ALYSSA) Association of [...] tests). Lab Interpretation Abnormal (test code = 25073-9) [facility]2020-05-08 06:29:00 Test Item Value Reference Range Interpretation Comments MAGNESIUM (test code = 9845065561) 1.7 mg/dL 1.7-2.4 Lab Interpretation (test code = Normal 19290-2) [facility] DallasLIPID PANEL (56052)(TOTAL CHOLESTEROL, TRIGLYCERIDES, HDL)2020-03-23 06:29:00 Test Item Value Reference Range Interpretation Comments CHOL (test code = 106 mg/dL 120-200 L 7135432480) HDL (test code = 46 mg/dL >40 4346693562) HDLC RATIO (test code = See_Comment [Au tomated message] 8568665408) The system [employer] generated this result transmit diamante reference range : <=5.0. The refe rence range was not u sed to interpret th is result as normal/abnormal . TRIG (test code = 74 mg/dL 30-170 7491573164) LDL CHOL (test code = 45 mg/dL See_Comment [Auto mated message] 76954-7) The system [employer] generated this result transmit diamante reference range : <=160. The refe rence range was not u sed to interpret th is result as normal/abnormal . VLDL (test code = 15 mg/dL 5-60 1462131862) Lab Interpretation (test Abnormal code = 18772-0) [facility]aPTT2020-[facility]-08 03:18:00 Test Item Value Reference Range Interpretation Comments APTT Patient (test code = See_Comment [ Automated message] 3173-2) The system [employer] generated this result transmitted ref erence range: 26 - 36 Seconds. The re ference range was not u sed to interpret this result as normal/abnor mal. Lab Interpretation (test Normal code = 91237-1) [facility] DallasaPTT2020-05-08 03:18:00 Test Item Value Reference Range Interpretation Comments APTT Patient (test code = See_Comment [ Automated message] 3173-2) The system [employer] generated this result transmitted ref erence range: 26 - 36 Seconds. The re ference range was not u sed to interpret this result as normal/abnor mal. Lab Interpretation (test Normal code = 56291-0) [facility] DallasPROTHROMBIN TIME / [id number] 03:07:00 Test Item Value Reference Range Interpretation Comments PROTIME PATIENT (test See_Comment [Auto mated message] code = 5964-2) The system jigl generated this result transmitted ref erence range: 10.1 - 1 2.6 Seconds. The re ference range was not u sed to interpret this result as normal/abnor mal. INR (test code = 6301-6) Nor mal INR <1.1; Warfarin Therap eutic range 2.0 to 3. 0 or 2.5 to 3.5, dep ending upon the indica tions. Lab Interpretation (test Normal code = 77128-4) [facility] DallasPROTHROMBIN TIME / [id number] 03:07:00 Test Item Value Reference Range Interpretation Comments PROTIME PATIENT (test See_Comment [Auto mated message] code = 5964-2) The system jigl generated this result transmitted ref erence range: 10.1 - 1 2.6 Seconds. The re ference range was not u sed to interpret this result as normal/abnor mal. INR (test code = 6301-6) Nor mal INR <1.1; Warfarin Therap eutic range 2.0 to 3. 0 or 2.5 to 3.5, dep ending upon the indica tions. Lab Interpretation (test Normal code = 72233-9) [facility] CHEST 2 [id number] 02:23:32 No acute cardiopulmonary process. Preliminary Report [...] reviewed this study and agree with the abovereport.[facility] CHEST 2 [id number] 02:23:32 No acute cardiopulmonary process. Preliminary Report [...] reviewed this study and agree with the abovereport.[facility] DallasCORONAVIRUS COVID-19 [id number] 01:23:00 Test Item Value Reference Range Interpretation Comments SARS-CoV-2 (test code = Not Detected Not Detected 99250-5) ALYSSA (test code = ALYSSA) ID NOW COVID-19 Assay is an isothermal nucleic acid amplification test intended for the qualitative detection of nucleic acid from SARS-CoV-2 viral RNA in nasopharyngeal ([employer]) specimens. It is used under Emergency Use [...] indicated. Lab Interpretation Normal (test code = 76904-1) [facility]CORON[facility] COVID-19 [id number] 01:23:00 Test Item Value Reference Range Interpretation Comments SARS-CoV-2 (test code = Not Detected Not Detected 66827-9) ALYSSA (test code = ALYSSA) ID NOW COVID-19 Assay is an isothermal nucleic acid amplification test intended for the qualitative detection of nucleic acid from SARS-CoV-2 viral RNA in nasopharyngeal ([employer]) specimens. It is used under Emergency Use [...] indicated. Lab Interpretation Normal (test code = 24092-3) [facility] DallasN-TERMINAL [id number] 00:12:00 Test Item Value Reference Range Interpretation Comments NT-proBNP (test code 585 pg/mL See_Comment H [Autom ated = 5269030216) message] The system which generated this result transmitted reference range : <=450. The reference range was not used to interpret this result as normal/abnormal . ALYSSA (test code = ALYSSA) Biotin has been reported to cause a negative bias, interpret results relative to patient's use of biotin. Lab Interpretation Abnormal (test code = 97732-5) [facility] DallasTROPONIN [id number] 00:12:00 Test Item Value Reference Range Interpretation Comments TROPONIN I (test 0.030 ng/mL See_Comment [Automated code = 1573855372) message] The system which generated this result [...] ? Lab Interpretation Normal (test code = 03222-5) [facility] DallasN-TERMINAL [id number] 00:12:00 Test Item Value Reference Range Interpretation Comments NT-proBNP (test code 585 pg/mL See_Comment H [Autom ated = 5763342572) message] The system which generated this result transmitted reference range : <=450. The reference range was not used to interpret this result as normal/abnormal . ALYSSA (test code = ALYSSA) Biotin has been reported to cause a negative bias, interpret results relative to patient's use of biotin. Lab Interpretation Abnormal (test code = 30732-4) [facility] DallasTROP[facility]IN [id number] 00:12:00 Test Item Value Reference Range Interpretation Comments TROPONIN I (test 0.030 ng/mL See_Comment [Automated code = 1288011361) message] The system which generated this result [...] ? Lab Interpretation Normal (test code = 55298-4) [facility] DallasCOM. METABOLIC PANEL (09551)2020-03-23 00:03:00 Test Item Value Reference Range Interpretation Comments NA (test code = 138 mmol/L 135-145 0199751959) K (test code = 4.1 mmol/L 3.5-5 0742345216) CL (test code = 103 mmol/L 98-108 8466541555) CO2 TOTAL (test code = 26 mmol/L 23-31 0245138177) AGAP (test code = 2-16 0368387553) BUN (test code = 18 mg/dL 7-23 4043131819) GLUCOSE (test code = 157 mg/dL 70-110 H 4686337510) CREATININE (test code = 1.19 mg/dL 0.6-1.25 7593758479) TOTAL BILI (test code = 1.1 mg/dL 0.1-1.2 6267397379) CALCIUM (test code = 9.2 mg/dL 8.6-10.6 5589635271) T PROTEIN (test code = 6.8 g/dL 6.3-8.2 9489600469) ALBUMIN (test code = 4.0 g/dL 3.5-5 3412950277) ALK PHOS (test code = 51 U/L 34-122 3927540045) ALTv (test code = 16 U/L 5-50 1742-6) AST(SGOT) (test code = 23 U/L 13-40 1210011040) eGFR Calculation mL/min/1.73m2 (Non-) (test code = 4942054152) eGFR Calculation mL/min/1.73m2 () (test code = 1740651282) ALYSSA (test code = ALYSSA) Association of [...] tests). Lab Interpretation Abnormal (test code = 55972-6) [facility] DallasCOMP. METABOLIC PANEL (31664)2020-03-23 00:03:00 Test Item Value Reference Range Interpretation Comments NA (test code = 138 mmol/L 135-145 8252688051) K (test code = 4.1 mmol/L 3.5-5 6649894161) CL (test code = 103 mmol/L 98-108 6748394287) CO2 TOTAL (test code = 26 mmol/L 23-31 5312196936) AGAP (test code = 2-16 5840705646) BUN (test code = 18 mg/dL 7-23 7067469981) GLUCOSE (test code = 157 mg/dL 70-110 H 6563585306) CREATININE (test code = 1.19 mg/dL 0.6-1.25 1949486752) TOTAL BILI (test code = 1.1 mg/dL 0.1-1.3 5365433790) CALCIUM (test code = 9.2 mg/dL 8.6-10.6 4491533317) T PROTEIN (test code = 6.8 g/dL 6.3-8.2 1614302498) ALBUMIN (test code = 4.0 g/dL 3.5-5 2819185106) ALK PHOS (test code = 51 U/L 34-122 9652682183) ALTv (test code = 16 U/L 5-50 1742-6) AST(SGOT) (test code = 23 U/L 13-40 5821906069) eGFR Calculation mL/min/1.73m2 (Non-) (test code = 4846544407) eGFR Calculation mL/min/1.73m2 () (test code = 2665143980) ALYSSA (test code = ALYSSA) Association of [...] tests). Lab Interpretation Abnormal (test code = 55354-6) [facility] WITH [id number] 23:57:00 Test Item Value Reference Range Interpretation Comments WBC (test code = See_Comment [Automated 4335-2) message] The sy stem which generated this result transmitted reference range : 4.20 - 10.70 10*3/?L. The reference range was not used to interpret this result as normal/abnormal . RBC (test code = See_Comment L [Automated 012-8) message] The sy stem which generated this [...] RDW-SD (test code = 49.6 fL 38.5-51.6 57043-0) RDW-CV (test code = 14.6 % 12.1-15.4 788-0) PLT (test code = See_Comment L [Automated 777-3) message] The sy stem which generated this result transmitted reference range : 150 - 328 10*3/ ?L. The reference r corey was not used to interpret this result as normal/abnormal . MPV (test code = 9.9 fL 9.8-13 09875-2) NRBC/100 WBC (test See_Comment [Automat ed code = 4947342013) message] The system which generated this result transmitted reference range : 0.0 - 10.0 /100 WBCs. The refer ence range was not u sed to interpret th is result as normal/abnormal . NRBC x10^3 (test code <0.01 See_Comment [Auto mated = 9296433065) message] The s ystem which generated this result transmitted reference range : 10*3/?L. The reference range was not used to interpret this result as normal/abnormal . GRAN MAT (NEUT) % 55.3 % (test code = 770-8) IMM GRAN % (test code 0.20 % = 0911674563) LYMPH % (test code = 28.3 % 736-9) MONO % (test code = 12.6 % 5905-5) EOS % (test code = 3.1 % 713-8) BASO % (test code = 0.5 % 706-2) GRAN MAT x10^3(ANC) 3.20 10*3/uL 1.99-6.95 (test code = 0526054971) IMM GRAN x10^3 (test <0.03 0-0.06 code = 5732940623) LYMPH x10^3 (test code 1.64 10*3/uL 1.09-3.23 = 731-0) MONO x10^3 (test code 0.73 10*3/uL 0.36-1.02 = 742-7) EOS x10^3 (test code = 0.18 10*3/uL 0.06-0.53 711-2) BASO x10^3 (test code 0.03 10*3/uL 0.01-0.09 = 704-7) Lab Interpretation Abnormal (test code = 34006-1) [facility] WITH [id number] 23:57:00 Test Item Value Reference Range Interpretation [...] RDW-SD (test code = 49.6 fL 38.5-51.6 45181-9) RDW-CV (test code = 14.6 % 12.1-15.4 788-0) PLT (test code = See_Comment L [Automated 777-3) message] The sy stem which generated this result transmitted reference range : 150 - 328 10*3/ ?L. The reference r corey was not used to interpret this result as normal/abnormal . MPV (test code = 9.9 fL 9.8-13 58135-9) NRBC/100 WBC (test See_Comment [Automat ed code = 5101911012) message] The system which generated this result transmitted reference range : 0.0 - 10.0 /100 WBCs. The refer ence range was not u sed to interpret th is result as normal/abnormal . NRBC x10^3 (test code <0.01 See_Comment [Auto mated = 8984413766) message] The s ystem which generated this result transmitted reference range : 10*3/?L. The reference range was not used to interpret this result as normal/abnormal . GRAN MAT (NEUT) % 55.3 % (test code = 770-8) IMM GRAN % (test code 0.20 % = 8041318672) LYMPH % (test code = 28.3 % 736-9) MONO % (test code = 12.6 % 5905-5) EOS % (test code = 3.1 % 713-8) BASO % (test code = 0.5 % 706-2) GRAN MAT x10^3(ANC) 3.20 10*3/uL 1.99-6.95 (test code = 9796917531) IMM GRAN x10^3 (test <0.03 0-0.06 code = 4514048538) LYMPH x10^3 (test code 1.64 10*3/uL 1.09-3.23 = 731-0) MONO x10^3 (test code 0.73 10*3/uL 0.36-1.02 = 742-7) EOS x10^3 (test code = 0.18 10*3/uL 0.06-0.53 711-2) BASO x10^3 (test code 0.03 10*3/uL 0.01-0.09 = 704-7) Lab Interpretation Abnormal (test code = 89377-1) [facility] [id number] 21:48:00 Test Item Value Reference Range Interpretation Comments SARS-CoV-2 (test code = Not Detected Not Detected 91744-9) ALYSSA (test code = ALYSSA) ID NOW COVID-19 Assay is an isothermal nucleic acid amplification test intended for the qualitative detection of nucleic acid from SARS-CoV-2 viral RNA in nasopharyngeal ([employer]) specimens. It is used under Emergency Use [...] indicated. Lab Interpretation Normal (test code = 23272-8) [facility] DallasTrop[facility] [id number] 21:44:00 Test Item Value Reference Range Interpretation Comments TROPONIN I (test 0.027 ng/mL See_Comment [Automated code = 6650627229) message] The system which generated this result [...] ? Lab Interpretation Normal (test code = 09253-6) [facility] DallasProthrombin Time (PT) / [id number] 21:41:00 Test Item Value Reference Range Interpretation Comments PROTIME PATIENT (test See_Comment [Auto mated message] code = 5964-2) The system [employer] ich generated this result transmitted ref erence range: 12.0 - 1 4.7 Seconds. The re ference range was not u sed to interpret this result as normal/abnor mal. INR (test code = 6301-6) Nor mal INR <1.1; Warfarin Therap eutic range 2.0 to 3. 0 or 2.5 to 3.5, dep ending upon the indica tions. Lab Interpretation (test Normal code = 52390-1) [facility] DallasN-TERMINAL [id number] 21:39:00 Test Item Value Reference Range Interpretation Comments NT-proBNP (test code 663 pg/mL See_Comment H [Autom ated = 2936021475) message] The system which generated this result transmitted reference range : <=450. The reference range was not used to interpret this result as normal/abnormal . ALYSSA (test code = ALYSSA) Biotin has been reported to cause a negative bias, interpret results relative to patient's use of biotin. Lab Interpretation Abnormal (test code = 60643-6) [facility] DallasCOMP. METABOLIC PANEL (91852)2020-03-21 21:37:00 Test Item Value Reference Range Interpretation Comments NA (test code = 139 mmol/L 135-145 2045253561) K (test code = 4.1 mmol/L 3.5-5 1335867797) CL (test code = 102 mmol/L 98-108 6239607921) CO2 TOTAL (test code = 29 mmol/L 23-31 5928944438) AGAP (test code = 2-16 2553605527) BUN (test code = 18 mg/dL 7-23 2349013042) GLUCOSE (test code = 277 mg/dL 70-110 H 9666165160) CREATININE (test code = 1.23 mg/dL 0.6-1.25 8963601396) TOTAL BILI (test code = 1.3 mg/dL 0.1-1.1 H 3131215396) CALCIUM (test code = 9.8 mg/dL 8.6-10.6 8177352856) T PROTEIN (test code = 7.0 g/dL 6.3-8.2 5870315881) ALBUMIN (test code = 4.2 g/dL 3.5-5 3152564933) ALK PHOS (test code = 50 U/L 34-122 5686914742) ALTv (test code = 15 U/L 5-50 1742-6) AST(SGOT) (test code = 22 U/L 13-40 5917130030) eGFR Calculation mL/min/1.73m2 (Non-) (test code = 2505164351) eGFR Calculation mL/min/1.73m2 () (test code = 3719791735) ALYSSA (test code = ALYSSA) Association of [...] tests). Lab Interpretation Abnormal (test code = 61088-0) [facility] DallasLipase [id number] 21:37:00 Test Item Value Reference Range Interpretation Comments LIPASE (test code = 5622555863) 161 U/L 0-220 Lab Interpretation (test code = Normal 08262-5) [facility] DallasChes 1 [id number] 20:46:31HISTORY: Chest pain. TECHNIQUE: Portable AP view [...] noted. Mild thoracolumbar scoliosis noted.CONCLUSIONS: Mild cardiomegaly. [facility] DallasLawiic Acid Whole [id number] 20:43:00 Test Item Value Reference Range Interpretation Comments LACTIC ACID (test code = 1.91 mmol/L 0.3-2.6 7455681113) [facility] GLUCOSE (AUTOMATED)2020-03-07 20:58:00 Test Item Value Reference Range Interpretation Comments POCT GLU (test code = 5476482368) 216 mg/dL 70-110 H Lab Interpretation (test code = Abnormal 99620-0) [facility] GLUCOSE (AUTOMATED)2020-03-07 16:00:00 Test Item Value Reference Range Interpretation Comments POCT GLU (test code = 6711580951) 168 mg/dL 70-110 H Lab Interpretation (test code = Abnormal 34978-1) [facility] GLUCOSE (AUTOMATED)2020-03-07 13:07:00 Test Item Value Reference Range Interpretation Comments POCT GLU (test code = 8900183108) 148 mg/dL 70-110 H Lab Interpretation (test code = Abnormal 66058-6) [facility] DallasTROPONIN [id number] 11:27:00 Test Item Value Reference Range Interpretation Comments TROPONIN I (test 0.051 ng/mL See_Comment H [Automated code = 6073029633) message] The system which generated this result [...] ? Lab Interpretation Abnormal (test code = 07443-4) [facility] DallasN-TERMINAL [id number] 11:24:00 Test Item Value Reference Range Interpretation Comments NT-proBNP (test code 336 pg/mL See_Comment [Autom ated = 4372981057) message] The system which generated this result transmitted reference range : <=450. The reference range was not used to interpret this result as normal/abnormal . ALYSSA (test code = ALYSSA) Biotin has been reported to cause a negative bias, interpret results relative to patient's use of biotin. Lab Interpretation Normal (test code = 39956-9) [facility] DallasB[facility] Met[facility] (NA, K, CL, CO2, GLUCOSE, BUN, CREATININE, CA)2020-03-07 11:14:00 Test Item Value Reference Range Interpretation Comments NA (test code = 138 mmol/L 135-145 6991924427) K (test code = 3.8 mmol/L 3.5-5 4810230250) CL (test code = 97 mmol/L 98-108 L 5648309167) CO2 TOTAL (test code = 30 mmol/L 23-31 1311240921) AGAP (test code = 2-16 7948988053) BUN (test code = 36 mg/dL 7-23 H 8821399021) GLUCOSE (test code = 140 mg/dL 70-110 H 2181791744) CREATININE (test code = 1.50 mg/dL 0.6-1.25 H 8212980070) CALCIUM (test code = 10.0 mg/dL 8.6-10.6 8349019432) eGFR Calculation mL/min/1.73m2 (Non-) (test code = 9442284199) eGFR Calculation mL/min/1.73m2 () (test code = 1957763520) ALYSSA (test code = ALYSSA) Association of [...] tests). Lab Interpretation Abnormal (test code = 80951-1) [facility] DallasURIC [id number] 11:14:00 Test Item Value Reference Range Interpretation Comments URIC ACID (test code = 1002165144) 5.4 mg/dL 3.6-8 Lab Interpretation (test code = Normal 78715-6) [facility] DallasCBC WITH [id number] 10:53:00 Test Item Value Reference Range Interpretation [...] RDW-SD (test code = 45.1 fL 38.5-51.6 19721-5) RDW-CV (test code = 14.2 % 12.1-15.4 788-0) PLT (test code = See_Comment [Automated 777-3) message] The sy stem which generated this result transmitted reference range : 150 - 328 10*3/ ?L. The reference r corey was not used to interpret this result as normal/abnormal . MPV (test code = 9.8 fL 9.8-13 71831-9) NRBC/100 WBC (test See_Comment [Automat ed code = 5847308213) message] The system which generated this result transmitted reference range : 0.0 - 10.0 /100 WBCs. The refer ence range was not u sed to interpret th is result as normal/abnormal . NRBC x10^3 (test code <0.01 See_Comment [Auto mated = 5996358294) message] The s ystem which generated this result transmitted reference range : 10*3/?L. The reference range was not used to interpret this result as normal/abnormal . GRAN MAT (NEUT) % 51.0 % (test code = 770-8) IMM GRAN % (test code 0.50 % = 2194378336) LYMPH % (test code = 32.0 % 736-9) MONO % (test code = 11.3 % 5905-5) EOS % (test code = 4.3 % 713-8) BASO % (test code = 0.9 % 706-2) GRAN MAT x10^3(ANC) 2.85 10*3/uL 1.99-6.95 (test code = 6641138353) IMM GRAN x10^3 (test 0.03 10*3/uL 0-0.06 code = 8656450360) LYMPH x10^3 (test code 1.79 10*3/uL 1.09-3.23 = 731-0) MONO x10^3 (test code 0.63 10*3/uL 0.36-1.02 = 742-7) EOS x10^3 (test code = 0.24 10*3/uL 0.06-0.53 711-2) BASO x10^3 (test code 0.05 10*3/uL 0.01-0.09 = 704-7) Lab Interpretation Abnormal (test code = 20941-8) [facility] GLUCOSE (AUTOMATED)2020-03-06 22:46:00 Test Item Value Reference Range Interpretation Comments POCT GLU (test code = 8642624390) 209 mg/dL 70-110 H Lab Interpretation (test code = Abnormal 64718-5) [facility] GLUCOSE (AUTOMATED)2020-03-06 16:23:00 Test Item Value Reference Range Interpretation Comments POCT GLU (test code = 1286078147) 254 mg/dL 70-110 H Lab Interpretation (test code = Abnormal 91122-9) [facility] GLUCOSE (AUTOMATED)2020-03-06 12:51:00 Test Item Value Reference Range Interpretation Comments POCT GLU (test code = 5473744931) 126 mg/dL 70-110 H Lab Interpretation (test code = Abnormal 18819-9) [facility] DallasTROPONIN [id number] 10:16:00 Test Item Value Reference Range Interpretation Comments TROPONIN I (test 0.056 ng/mL See_Comment H [Automated code = 1933982429) message] The system which generated this result [...] ? Lab Interpretation Abnormal (test code = 74543-3) [facility] (NA, K, CL, CO2, GLUCOSE, BUN, CREATININE, CA)2020-03-06 10:13:00 Test Item Value Reference Range Interpretation Comments NA (test code = 136 mmol/L 135-145 7044266945) K (test code = 4.1 mmol/L 3.5-5 1815810632) CL (test code = 95 mmol/L 98-108 L 2776748915) CO2 TOTAL (test code = 30 mmol/L 23-31 3407525955) AGAP (test code = 2-16 9854044262) BUN (test code = 35 mg/dL 7-23 H 3895486852) GLUCOSE (test code = 174 mg/dL 70-110 H 5558215162) CREATININE (test code = 1.67 mg/dL 0.6-1.25 H 5238924776) CALCIUM (test code = 9.7 mg/dL 8.6-10.6 4685344549) eGFR Calculation mL/min/1.73m2 (Non-) (test code = 5821634968) eGFR Calculation mL/min/1.73m2 () (test code = 8915257752) ALYSSA (test code = ALYSSA) Association of [...] tests). Lab Interpretation Abnormal (test code = 98655-5) [facility] WITH [id number] 09:16:00 Test Item Value Reference Range Interpretation Comments WBC (test code = See_Comment [Automated 8927-2) message] The sy stem which generated this [...] RDW-SD (test code = 45.6 fL 38.5-51.6 87332-5) RDW-CV (test code = 14.3 % 12.1-15.4 788-0) PLT (test code = See_Comment [Automated 777-3) message] The sy stem which generated this result transmitted reference range : 150 - 328 10*3/ ?L. The reference r corey was not used to interpret this result as normal/abnormal . MPV (test code = 9.8 fL 9.8-13 07085-9) NRBC/100 WBC (test See_Comment [Automat ed code = 8035024947) message] The system which generated this result transmitted reference range : 0.0 - 10.0 /100 WBCs. The refer ence range was not u sed to interpret th is result as normal/abnormal . NRBC x10^3 (test code <0.01 See_Comment [Auto mated = 3720740302) message] The s ystem which generated this result transmitted reference range : 10*3/?L. The reference range was not used to interpret this result as normal/abnormal . GRAN MAT (NEUT) % 56.1 % (test code = 770-8) IMM GRAN % (test code 0.10 % = 8242139504) LYMPH % (test code = 29.7 % 736-9) MONO % (test code = 9.6 % 5905-5) EOS % (test code = 3.8 % 713-8) BASO % (test code = 0.7 % 706-2) GRAN MAT x10^3(ANC) 3.79 10*3/uL 1.99-6.95 (test code = 4738183014) IMM GRAN x10^3 (test <0.03 0-0.06 code = 2025239620) LYMPH x10^3 (test code 2.01 10*3/uL 1.09-3.23 = 731-0) MONO x10^3 (test code 0.65 10*3/uL 0.36-1.02 = 742-7) EOS x10^3 (test code = 0.26 10*3/uL 0.06-0.53 711-2) BASO x10^3 (test code 0.05 10*3/uL 0.01-0.09 = 704-7) Lab Interpretation Abnormal (test code = 82724-4) [facility]2020-03-06 01:25:00 Test Item Value Reference Range Interpretation Comments POCT GLU (test code = 2776328000) 208 mg/dL 70-110 H Lab Interpretation (test code = Abnormal 26423-1) [facility] DallasTROPONIN [id number] 00:08:00 Test Item Value Reference Range Interpretation Comments TROPONIN I (test 0.047 ng/mL See_Comment H [Automated code = 0693956537) message] The system which generated this result [...] ? Lab Interpretation Abnormal (test code = 10314-5) [facility] GLUCOSE (AUTOMATED)2020-03-05 21:19:00 Test Item Value Reference Range Interpretation Comments POCT GLU (test code = 9726007001) 234 mg/dL 70-110 H Lab Interpretation (test code = Abnormal 84611-9) [facility] GLUCOSE (AUTOMATED)2020-03-05 16:55:00 Test Item Value Reference Range Interpretation Comments POCT GLU (test code = 1314152172) 258 mg/dL 70-110 H Lab Interpretation (test code = Abnormal 39742-2) [facility] GLUCOSE (AUTOMATED)2020-03-05 12:59:00 Test Item Value Reference Range Interpretation Comments POCT GLU (test code = 0522314218) 194 mg/dL 70-110 H Lab Interpretation (test code = Abnormal 78863-9) [facility] DallasTROPONIN [id number] 10:54:00 Test Item Value Reference Range Interpretation Comments TROPONIN I (test 0.071 ng/mL See_Comment H [Automated code = 7306041429) message] The system which generated this result [...] ? Lab Interpretation Abnormal (test code = 73362-0) [facility] (NA, K, CL, CO2, GLUCOSE, BUN, CREATININE, CA)2020-03-05 10:43:00 Test Item Value Reference Range Interpretation Comments NA (test code = 139 mmol/L 135-145 2578654798) K (test code = 4.1 mmol/L 3.5-5 7622883740) CL (test code = 101 mmol/L 98-108 4879880570) CO2 TOTAL (test code = 27 mmol/L 23-31 4835469994) AGAP (test code = 2-16 4999234643) BUN (test code = 25 mg/dL 7-23 H 9835346582) GLUCOSE (test code = 243 mg/dL 70-110 H 5221207123) CREATININE (test code = 1.22 mg/dL 0.6-1.25 0078014089) CALCIUM (test code = 9.8 mg/dL 8.6-10.6 7786222874) eGFR Calculation mL/min/1.73m2 (Non-) (test code = 7585150106) eGFR Calculation mL/min/1.73m2 () (test code = 0238709534) ALYSSA (test code = ALYSSA) Association of [...] tests). Lab Interpretation Abnormal (test code = 02361-3) [facility] WITH [id number] 10:23:00 Test Item Value Reference Range Interpretation Comments WBC (test code = See_Comment [Automated message] 3590-2) The system [employer] generated this result transmitted ref erence range: 4.20 - 1 0.70 10*3/?L. The re ference range was not u sed to interpret this result as normal/abnor mal. RBC (test code = See_Comment [Automated message] 529-8) The system [employer] generated this result transmitted ref erence range: [...] RDW-SD (test code 47.8 fL 38.5-51.6 = 79505-0) RDW-CV (test code 14.4 % 12.1-15.4 = 788-0) PLT (test code = See_Comment [Automated message] 127-3) The system [employer] generated this result transmitted ref erence range: 150 - 32 8 10*3/?L. The re ference range was not u sed to interpret this result as normal/abnor mal. MPV (test code = 9.8 fL 9.8-13 65971-7) NRBC/100 WBC (test See_Comment [Automat ed message] code = 1862134944) The syste m which generated this result transmitted ref erence range: 0.0 - 10 .0 /100 WBCs. The refer ence range was not u sed to interpret this result as normal/abnor mal. NRBC x10^3 (test <0.01 See_Comment [Automated message] code = 6305909489) The syste m which generated this result transmitted ref erence range: 10*3/?L. The reference range was not used to interpr et this result as normal/abnormal . GRAN MAT (NEUT) % 48.8 % (test code = 770-8) IMM GRAN % (test 0.20 % code = 8269532146) LYMPH % (test code 34.7 % = 736-9) MONO % (test code 10.8 % = 5905-5) EOS % (test code = 4.9 % 713-8) BASO % (test code 0.6 % = 706-2) GRAN MAT 2.49 10*3/uL 1.99-6.95 x10^3(ANC) (test code = 3455074537) IMM GRAN x10^3 <0.03 0-0.06 (test code = 4181568256) LYMPH x10^3 (test 1.77 10*3/uL 1.09-3.23 code = 731-0) MONO x10^3 (test 0.55 10*3/uL 0.36-1.02 code = 742-7) EOS x10^3 (test 0.25 10*3/uL 0.06-0.53 code = 711-2) BASO x10^3 (test 0.03 10*3/uL 0.01-0.09 code = 704-7) [facility] DallasXR CHEST 1 [id number] 03:06:08 No acute cardiopulmonary process. Unchanged enlargement [...] reviewed this study and agree with the abovereport.[facility] CORONAVIRUS COVID-19 [id number] 00:34:00 Test Item Value Reference Range Interpretation Comments SARS-CoV-2 (test code = Not Detected Not Detected 86924-6) ALYSSA (test code = ALYSSA) ID NOW COVID-19 Assay is an isothermal nucleic acid amplification test intended for the qualitative detection of nucleic acid from SARS-CoV-2 viral RNA in nasopharyngeal ([employer]) specimens. It is used under Emergency Use [...] indicated. Lab Interpretation Normal (test code = 28213-0) [facility] DallasTroponin [id number] 00:08:00 Test Item Value Reference Range Interpretation Comments TROPONIN I (test 0.056 ng/mL See_Comment H [Automated code = 8436919306) message] The system which generated this result [...] ? Lab Interpretation Abnormal (test code = 69082-5) [facility] DallasN-TERMINAL [id number] 00:04:00 Test Item Value Reference Range Interpretation Comments NT-proBNP (test code 562 pg/mL See_Comment H [Autom ated = 0474177391) message] The system which generated this result transmitted reference range : <=450. The reference range was not used to interpret this result as normal/abnormal . ALYSSA (test code = ALYSSA) Biotin has been reported to cause a negative bias, interpret results relative to patient's use of biotin. Lab Interpretation Abnormal (test code = 04092-8) [facility] DallasProthrombin Time (PT) / [id number] 23:57:00 Test Item Value Reference Range Interpretation [...] tions. Lab Interpretation (test Normal code = 18221-6) [facility] Metabolic Panel (NA, K, CL, CO2, GLUCOSE, BUN, CREATININE, CA)2020-03-04 23:56:00 Test Item Value Reference Range Interpretation Comments NA (test code = 139 mmol/L 135-145 7607372065) K (test code = 4.1 mmol/L 3.5-5 0315871500) CL (test code = 102 mmol/L 98-108 2477447462) CO2 TOTAL (test code = 29 mmol/L 23-31 7735768523) AGAP (test code = 2-16 3030752147) BUN (test code = 23 mg/dL 7-23 8833824303) GLUCOSE (test code = 193 mg/dL 70-110 H 1598176473) CREATININE (test code = 1.25 mg/dL 0.6-1.25 7553400870) CALCIUM (test code = 9.7 mg/dL 8.6-10.6 6845088208) eGFR Calculation mL/min/1.73m2 (Non-) (test code = 6973240216) eGFR Calculation mL/min/1.73m2 () (test code = 3658955245) ALYSSA (test code = ALYSSA) Association of [...] tests). Lab Interpretation Abnormal (test code = 04414-5) [facility] DallasHepatic Function Panel (ALB, T.PRO, BILI T, BU/BC, ALT, AST, ALK PHOS)2020-03-04 23:56:00 Test Item Value Reference Range Interpretation Comments TOTAL BILI (test code = 4972860741) 1.1 mg/dL 0.1-1.1 BILI UNCON (test code = 5542889968) 1.1 mg/dL 0.1-1.1 BILI CONJ (test code = 7539666543) 0.0 mg/dL 0-0.3 T PROTEIN (test code = 1722079230) 7.1 g/dL 6.3-8.2 ALBUMIN (test code = 8149978864) 4.1 g/dL 3.5-5 ALK PHOS (test code = 3675424441) 61 U/L 34-122 ALTv (test code = 1742-6) 16 U/L 5-50 AST(SGOT) (test code = 4900137517) 23 U/L 13-40 Lab Interpretation (test code = Normal 99326-4) [facility] DallasLipase [id number] 23:56:00 Test Item Value Reference Range Interpretation Comments LIPASE (test code = 1185060604) 149 U/L 0-220 Lab Interpretation (test code = Normal 12249-4) [facility] DallasaPTT2020-04-19 23:56:00 Test Item Value Reference Range Interpretation Comments APTT Patient (test See_Comment [Automat ed code = 3173-2) message] The system which generated this result transmitted reference range : 23 - 38 Seconds . The reference range was not used to interpr et this result as normal/abnormal . ALYSSA (test code = ALYSSA) The [facility] patient population mean normal value for aPTT is 30 seconds. Lab Interpretation Normal (test code = 82362-3) [facility] WITH [id number] 23:46:00 Test Item Value Reference Range Interpretation [...] RDW-SD (test code = 48.3 fL 38.5-51.6 95502-5) RDW-CV (test code = 14.7 % 12.1-15.4 788-0) PLT (test code = See_Comment [Automated 777-3) message] The sy stem which generated this result transmitted reference range : 150 - 328 10*3/ ?L. The reference r corey was not used to interpret this result as normal/abnormal . MPV (test code = 9.8 fL 9.8-13 35194-6) NRBC/100 WBC (test See_Comment [Automat ed code = 5424392656) message] The system which generated this result transmitted reference range : 0.0 - 10.0 /100 WBCs. The refer ence range was not u sed to interpret th is result as normal/abnormal . NRBC x10^3 (test code <0.01 See_Comment [Auto mated = 0785599848) message] The s ystem which generated this result transmitted reference range : 10*3/?L. The reference range was not used to interpret this result as normal/abnormal . GRAN MAT (NEUT) % 60.1 % (test code = 770-8) IMM GRAN % (test code 0.20 % = 9159386197) LYMPH % (test code = 26.4 % 736-9) MONO % (test code = 9.9 % 5905-5) EOS % (test code = 2.8 % 713-8) BASO % (test code = 0.6 % 706-2) GRAN MAT x10^3(ANC) 3.17 10*3/uL 1.99-6.95 (test code = 7492916347) IMM GRAN x10^3 (test <0.03 0-0.06 code = 5082996996) LYMPH x10^3 (test code 1.39 10*3/uL 1.09-3.23 = 731-0) MONO x10^3 (test code 0.52 10*3/uL 0.36-1.02 = 742-7) EOS x10^3 (test code = 0.15 10*3/uL 0.06-0.53 711-2) BASO x10^3 (test code 0.03 10*3/uL 0.01-0.09 = 704-7) Lab Interpretation Abnormal (test code = 93489-5) [facility] GLUCOSE (AUTOMATED)2020-03-02 16:04:00 Test Item Value Reference Range Interpretation Comments POCT GLU (test code = 3116382473) 214 mg/dL 70-110 H Lab Interpretation (test code = Abnormal 49618-8) [facility] GLUCOSE (AUTOMATED)2020-03-02 16:04:00 Test Item Value Reference Range Interpretation Comments POCT GLU (test code = 9818018359) 271 mg/dL 70-110 H Lab Interpretation (test code = Abnormal 58993-9) [facility] [id number] 09:43:00 Test Item Value Reference Range Interpretation Comments NT-proBNP (test code 1670 pg/mL See_Comment H [Autom ated = 1482803096) message] The system which generated this result transmitted reference range : <=450. The reference range was not used to interpret this result as normal/abnormal . ALYSSA (test code = ALYSSA) Biotin has been reported to cause a negative bias, interpret results relative to patient's use of biotin. Lab Interpretation Abnormal (test code = 08479-5) [facility] METABOLIC PANEL (NA, K, CL, CO2, GLUCOSE, BUN, CREATININE, CA)2020-03-02 09:33:00 Test Item Value Reference Range Interpretation Comments NA (test code = 143 mmol/L 135-145 2757593174) K (test code = 3.8 mmol/L 3.5-5 4541907649) CL (test code = 105 mmol/L 98-108 3848271834) CO2 TOTAL (test code = 28 mmol/L 23-31 5761367815) AGAP (test code = 2-16 2892316068) BUN (test code = 19 mg/dL 7-23 4603858181) GLUCOSE (test code = 152 mg/dL 70-110 H 3966289206) CREATININE (test code = 1.18 mg/dL 0.6-1.25 7057592975) CALCIUM (test code = 9.0 mg/dL 8.6-10.6 9084829575) eGFR Calculation mL/min/1.73m2 (Non-) (test code = 1574971253) eGFR Calculation mL/min/1.73m2 () (test code = 8275356739) ALYSSA (test code = ALYSSA) Association of [...] tests). Lab Interpretation Abnormal (test code = 48898-7) [facility]2020-[facility]17 09:33:00 Test Item Value Reference Range Interpretation Comments MAGNESIUM (test code = 8258678432) 1.8 mg/dL 1.7-2.4 Lab Interpretation (test code = Normal 52590-0) [facility]2020-03-01 20:42:00 Test Item Value Reference Range Interpretation Comments POCT GLU (test code = 8845057894) 231 mg/dL 70-110 H Lab Interpretation (test code = Abnormal 57630-1) [facility]VITAMIN B12, [id number] 11:51:00 Test Item Value Reference Range Interpretation Comments VIT B12 (test code = 325 pg/mL 240-930 4309720176) ALYSSA (test code = ALYSSA) Biotin has been reported to cause a positive bias, interpret results relative to patient's use of biotin. Lab Interpretation (test Normal code = 50653-3) [facility]2020-04-16 11:49:00 Test Item Value Reference Range Interpretation Comments FOLATE SER (test code = >20.0 3-20 H Slig ht hemolysis 1809318070) Lab Interpretation (test Abnormal code = 25521-4) [facility] DallasPROCALCITONIN2020-04-16 10:49:00 Test Item Value Reference Range Interpretation Comments Procalcitonin (test 3.05 ng/mL <0.07 H code = 5891834302) ALYSSA (test code = ALYSSA) INTERPRETATION OF [...] biotics/default.asp Lab Interpretation Abnormal (test code = 99405-8) [facility] DallasTROPONIN [id number] 09:58:00 Test Item Value Reference Range Interpretation Comments TROPONIN I (test 0.093 ng/mL See_Comment H [Automated code = 0797990256) message] The system which generated this result [...] ? Lab Interpretation Abnormal (test code = 50248-3) [facility] [id number] 09:55:00 Test Item Value Reference Range Interpretation Comments NT-proBNP (test code 4450 pg/mL See_Comment H [Autom ated = 6770419548) message] The system which generated this result transmitted reference range : <=450. The reference range was not used to interpret this result as normal/abnormal . ALYSSA (test code = ALYSSA) Biotin has been reported to cause a negative bias, interpret results relative to patient's use of biotin. Lab Interpretation Abnormal (test code = 31168-7) [facility] (NA, K, CL, CO2, GLUCOSE, BUN, CREATININE, CA)2020-03-01 09:50:00 Test Item Value Reference Range Interpretation Comments NA (test code = 141 mmol/L 135-145 1800981593) K (test code = 3.5 mmol/L 3.5-5 7003764766) CL (test code = 105 mmol/L 98-108 0647550956) CO2 TOTAL (test code = 26 mmol/L 23-31 2997873207) AGAP (test code = 2-16 4718543354) BUN (test code = 13 mg/dL 7-23 1414110343) GLUCOSE (test code = 219 mg/dL 70-110 H 5049606796) CREATININE (test code = 1.01 mg/dL 0.6-1.25 4747721578) CALCIUM (test code = 8.7 mg/dL 8.6-10.6 3394429978) eGFR Calculation mL/min/1.73m2 (Non-) (test code = 1700530871) eGFR Calculation mL/min/1.73m2 () (test code = 8113148086) ALYSSA (test code = ALYSSA) Association of [...] tests). Lab Interpretation Abnormal (test code = 99576-1) [facility] DallasMagnesium [id number] 09:50:00 Test Item Value Reference Range Interpretation Comments MAGNESIUM (test code = 7247487892) 1.9 mg/dL 1.7-2.4 Lab Interpretation (test code = Normal 45513-9) [facility] WITH [id number] 09:22:00 Test Item Value Reference Range Interpretation [...] RDW-SD (test code = 47.8 fL 38.5-51.6 55291-7) RDW-CV (test code = 14.8 % 12.1-15.4 788-0) PLT (test code = See_Comment L [Automated 777-3) message] The sy stem which generated this result transmitted reference range : 150 - 328 10*3/ ?L. The reference r corey was not used to interpret this result as normal/abnormal . MPV (test code = 9.9 fL 9.8-13 13018-8) NRBC/100 WBC (test See_Comment [Automat ed code = 8270057027) message] The system which generated this result transmitted reference range : 0.0 - 10.0 /100 WBCs. The refer ence range was not u sed to interpret th is result as normal/abnormal . NRBC x10^3 (test code <0.01 See_Comment [Auto mated = 1212331687) message] The s ystem which generated this result transmitted reference range : 10*3/?L. The reference range was not used to interpret this result as normal/abnormal . GRAN MAT (NEUT) % 66.0 % (test code = 770-8) IMM GRAN % (test code 0.30 % = 9669332048) LYMPH % (test code = 20.8 % 736-9) MONO % (test code = 9.5 % 5905-5) EOS % (test code = 2.8 % 713-8) BASO % (test code = 0.6 % 706-2) GRAN MAT x10^3(ANC) 4.44 10*3/uL 1.99-6.95 (test code = 8693640211) IMM GRAN x10^3 (test <0.03 0-0.06 code = 7472408169) LYMPH x10^3 (test code 1.40 10*3/uL 1.09-3.23 = 731-0) MONO x10^3 (test code 0.64 10*3/uL 0.36-1.02 = 742-7) EOS x10^3 (test code = 0.19 10*3/uL 0.06-0.53 711-2) BASO x10^3 (test code 0.04 10*3/uL 0.01-0.09 = 704-7) Lab Interpretation Abnormal (test code = 17416-6) [facility] DallasGLYCOSYLATED HEMOGLOBIN (A1C)2020-03-01 06:49:00 Test Item Value Reference [...] Indicated Lab Interpretation Abnormal (test code = 88543-8) [facility] DallasURIC [id number] 06:25:00 Test Item Value Reference Range Interpretation Comments URIC ACID (test code = 2933505819) 2.3 mg/dL 3.6-8 L Lab Interpretation (test code = Abnormal 44084-8) [facility] DallasSEDIMENTATION [id number] 05:25:00 Test Item Value Reference Range Interpretation Comments ESR (test code = See_Comment H [Automated message] 1461011715) The system [employer] generated this result transmitted ref erence range: 0 - 10 m m/HR. The reference r corey was not used to interpret this result as normal/abnor mal. Lab Interpretation (test Abnormal code = 40523-6) [facility] DallasN-TERMINAL [id number] 04:07:00 Test Item Value Reference Range Interpretation Comments NT-proBNP (test code 4080 pg/mL See_Comment H [Autom ated = 5171594275) message] The system which generated this result transmitted reference range : <=450. The reference range was not used to interpret this result as normal/abnormal . ALYSSA (test code = ALYSSA) Biotin has been reported to cause a negative bias, interpret results relative to patient's use of biotin. Lab Interpretation Abnormal (test code = 73741-2) [facility]PO[facility]2020-03-01 03:42:00 Test Item Value Reference Range Interpretation Comments POCT GLU (test code = 8348294839) 190 mg/dL 70-110 H Lab Interpretation (test code = Abnormal 20800-1) [facility] DallasTROPONIN [id number] 03:30:00 Test Item Value Reference Range Interpretation Comments TROPONIN I (test 0.098 ng/mL See_Comment H [Automated code = 9257768629) message] The system which generated this result transmitted reference range : <=0.034. The reference range was not used to interpret this result as normal/abnormal . ALYSSA (test code = Equal or Less than LAYSSA) 0.034 ng/ml---Normal ?Note: Cardiac troponin begins to [...] ? Lab Interpretation Abnormal (test code = 95696-1) [facility] DallasHEPATIC FUNCTION PANEL (47412) (ALB,T.PRO,BILI T,BU/BC,ALT,AST,ALK PHOS)2020-03-01 03:24:00 Test Item Value Reference Range Interpretation Comments TOTAL BILI (test code = 4860548937) 2.2 mg/dL 0.1-1.1 H BILI UNCON (test code = 3457255529) 2.0 mg/dL 0.1-1.1 H BILI CONJ (test code = 3165333489) 0.0 mg/dL 0-0.3 T PROTEIN (test code = 7115548262) 6.7 g/dL 6.3-8.2 ALBUMIN (test code = 0648359765) 4.0 g/dL 3.5-5 ALK PHOS (test code = 9390114374) 48 U/L 34-122 ALTv (test code = 1742-6) 18 U/L 5-50 AST(SGOT) (test code = 2805408525) 57 U/L 13-40 H Lab Interpretation (test code = Abnormal 97240-8) [facility] DallasPhosphorus [id number] 03:17:00 Test Item Value Reference Range Interpretation Comments PHOSPHORUS (test code = 3.1 mg/dL 2.5-5 Slig ht hemolysis 0544480922) Lab Interpretation (test Normal code = 84927-0) [facility] DallasPROTHROMBIN TIME / [id number] 03:08:00 Test Item Value Reference Range Interpretation Comments PROTIME PATIENT (test See_Comment [Auto mated message] code = 5964-2) The system [employer] ich generated this result transmitted ref erence range: 12.0 - 1 4.7 Seconds. The re ference range was not u sed to interpret this result as normal/abnor mal. INR (test code = 6301-6) Nor mal INR <1.1; Warfarin Therap eutic range 2.0 to 3. 0 or 2.5 to 3.5, dep ending upon the indica tions. Lab Interpretation (test Normal code = 10994-3) [facility] DallasCREATINE [id number] 03:01:00 Test Item Value Reference Range Interpretation Comments CK (test code = 3450324033) 68 U/L 33-194 Lab Interpretation (test code = Normal 08408-1) [facility] DallasURIC [id number] 02:41:00 Test Item Value Reference Range Interpretation Comments URIC ACID (test code = 2789640729) 2.3 mg/dL 3.6-8 L Lab Interpretation (test code = Abnormal 84761-1) [facility] DallasTHYROID STIMULATING [id number] 02:26:00 Test Item Value Reference Range Interpretation Comments TSH (test code = See_Comment [Automated message] 1614189198) The system ic h generated this result transmitted ref erence range: 0.45 - 4 .70 mIU/L. The refe rence range was not u sed to interpret this result as normal/abnor mal. Lab Interpretation (test Normal code = 87613-0) [facility] DallasN-TERMINAL [id number] 02:04:00 Test Item Value Reference Range Interpretation Comments NT-proBNP (test code 4390 pg/mL See_Comment H [Autom ated = 4004883559) message] The system which generated this result transmitted reference range : <=450. The reference range was not used to interpret this result as normal/abnormal . ALYSSA (test code = ALYSSA) Biotin has been reported to cause a negative bias, interpret results relative to patient's use of biotin. Lab Interpretation Abnormal (test code = 37196-6) [facility] DallasMAGNESIUM2020-04-16 02:01:00 Test Item Value Reference Range Interpretation Comments MAGNESIUM (test code = 4813323283) 1.5 mg/dL 1.7-2.4 L Lab Interpretation (test code = Abnormal 45530-8) [facility] DallasLIPASE2020-04-16 00:22:00 Test Item Value Reference Range Interpretation Comments LIPASE (test code = 2815471496) 68 U/L 0-220 Lab Interpretation (test code = Normal 80215-1) [facility] DallasCORONAVIRUS COVID-19 [id number] 23:42:00 Test Item Value Reference Range Interpretation Comments SARS-CoV-2 (test code = Not Detected Not Detected 77725-0) ALYSSA (test code = ALYSSA) ID NOW COVID-19 Assay is an isothermal nucleic acid amplification test intended for the qualitative detection of nucleic acid from SARS-CoV-2 viral RNA in nasopharyngeal ([employer]) specimens. It is used under Emergency Use [...] indicated. Lab Interpretation Normal (test code = 03554-2) [facility] DallasXR CHEST 1 VW [id number] 23:26:02 No acute intrathoracic abnormality, specifically no radiographic findingsto suggest COVID-19 pneumonia. Disclaimer: Generally, the findings on chest imaging in COVID-19 are notspecific, and overlap with other infections, including influenza, H1N1,SARS and MERS. According to the Centers for Disease Control (CDC) and recent statement ofthe [employer], viral testing remains the [...] stimulating device overlie the mid thoracic spine. [facility], Radiant ResultsInft User - 02/29/2020 6:27 PM [...] Disease Control (CDC) and recent statement ofthe [employer], viral testing remains the only specificmethod of diagnosis. Confirmation with the viral test is required, even ifradiologic findings are suggestive of COVID-[address]. Preliminary Report Dictated by Resident: Radu Boo MD., have reviewed this study and agree with theabovereport.[facility] DallasWendy [id number] 22:59:00 Test Item Value Reference Range Interpretation Comments TROPONIN I (test 0.071 ng/mL See_Comment H [Automated code = 5069216657) message] The system which generated this result [...] ? Lab Interpretation Abnormal (test code = 40020-0) [facility] Metabolic Panel (NA, K, CL, CO2, GLUCOSE, BUN, CREATININE, CA)2020-02-29 22:48:00 Test Item Value Reference Range Interpretation Comments NA (test code = 141 mmol/L 135-145 9167534274) K (test code = 3.2 mmol/L 3.5-5 L 5478122393) CL (test code = 104 mmol/L 98-108 8999215016) CO2 TOTAL (test code = 25 mmol/L 23-31 8939102631) AGAP (test code = 2-16 2641066118) BUN (test code = 12 mg/dL 7-23 5054763850) GLUCOSE (test code = 250 mg/dL 70-110 H 3214875653) CREATININE (test code = 1.02 mg/dL 0.6-1.25 1640370035) CALCIUM (test code = 8.9 mg/dL 8.6-10.6 5722203971) eGFR Calculation mL/min/1.73m2 (Non-) (test code = 3707996958) eGFR Calculation mL/min/1.73m2 () (test code = 6519780660) ALYSSA (test code = ALYSSA) Association of [...] tests). Lab Interpretation Abnormal (test code = 45049-4) [facility] WITH [id number] 22:41:00 Test Item Value Reference Range Interpretation Comments WBC (test code = See_Comment [Automated 9815-2) message] The sy stem which generated this [...] RDW-SD (test code = 46.6 fL 38.5-51.6 68949-3) RDW-CV (test code = 14.6 % 12.1-15.4 788-0) PLT (test code = See_Comment [Automated 777-3) message] The sy stem which generated this result transmitted reference range : 150 - 328 10*3/ ?L. The reference r corey was not used to interpret this result as normal/abnormal . MPV (test code = 9.7 fL 9.8-13 L 86522-0) NRBC/100 WBC (test See_Comment [Automat ed code = 2732712316) message] The system which generated this result transmitted reference range : 0.0 - 10.0 /100 WBCs. The refer ence range was not u sed to interpret th is result as normal/abnormal . NRBC x10^3 (test code <0.01 See_Comment [Auto mated = 7388219163) message] The s ystem which generated this result transmitted reference range : 10*3/?L. The reference range was not used to interpret this result as normal/abnormal . GRAN MAT (NEUT) % 68.6 % (test code = 770-8) IMM GRAN % (test code 0.30 % = 0434085185) LYMPH % (test code = 18.6 % 736-9) MONO % (test code = 10.1 % 5905-5) EOS % (test code = 1.8 % 713-8) BASO % (test code = 0.6 % 706-2) GRAN MAT x10^3(ANC) 4.29 10*3/uL 1.99-6.95 (test code = 0914278474) IMM GRAN x10^3 (test <0.03 0-0.06 code = 4863342491) LYMPH x10^3 (test code 1.16 10*3/uL 1.09-3.23 = 731-0) MONO x10^3 (test code 0.63 10*3/uL 0.36-1.02 = 742-7) EOS x10^3 (test code = 0.11 10*3/uL 0.06-0.53 711-2) BASO x10^3 (test code 0.04 10*3/uL 0.01-0.09 = 704-7) Lab Interpretation Abnormal (test code = 75655-4) [facility] DallasLawiic Acid Whole [id number] 22:38:00 Test Item Value Reference Range Interpretation Comments LACTIC ACID (test code = 1.88 mmol/L 0.3-2.6 3255280791) [facility] DallasPOME GLUCOSE (AUTOMATED)2020-01-17 18:18:00 Test Item Value Reference Range Interpretation Comments POCT GLU (test code = 8448308959) 290 mg/dL 70-110 H Lab Interpretation (test code = Abnormal 56833-0) [facility] DallasTROPONIN [id number] 18:01:00 Test Item Value Reference Range Interpretation Comments TROPONIN I (test 0.065 ng/mL See_Comment H [Automated code = 8424811340) message] The system which generated this result [...] ? Lab Interpretation Abnormal (test code = 65947-9) [facility] DallasaPTT2020-03-03 17:10:00 Test Item Value Reference Range Interpretation Comments APTT Patient (test See_Comment H [Automat ed code = 3173-2) message] The system which generated this result transmitted reference range : 23 - 38 Seconds . The reference range was not used to interpr et this result as normal/abnormal . ALYSSA (test code = ALYSSA) The [facility] patient population mean normal value for aPTT is 30 seconds. Lab Interpretation Abnormal (test code = 76973-6) [facility] DallasPOCT GLUCOSE (AUTOMATED)2020-01-17 11:59:00 Test Item Value Reference Range Interpretation Comments POCT GLU (test code = 8588612255) 185 mg/dL 70-110 H Lab Interpretation (test code = Abnormal 10631-1) [facility] DallasTROPONIN [id number] 11:23:00 Test Item Value Reference Range Interpretation Comments TROPONIN I (test 0.073 ng/mL See_Comment H [Automated code = 8285489090) message] The system which generated this result [...] ? Lab Interpretation Abnormal (test code = 45452-3) [facility] Metabolic Panel (NA, K, CL, CO2, GLUCOSE, BUN, CREATININE, CA)2020-01-17 11:16:00 Test Item Value Reference Range Interpretation Comments NA (test code = 136 mmol/L 135-145 6351593492) K (test code = 3.3 mmol/L 3.5-5 L 6365252477) CL (test code = 101 mmol/L 98-108 9662368543) CO2 TOTAL (test code = 26 mmol/L 23-31 4550843065) AGAP (test code = 2-16 9439604122) BUN (test code = 19 mg/dL 7-23 6420225462) GLUCOSE (test code = 227 mg/dL 70-110 H 8977589958) CREATININE (test code = 1.33 mg/dL 0.6-1.25 H 5221317269) CALCIUM (test code = 9.1 mg/dL 8.6-10.6 6579576593) eGFR Calculation mL/min/1.73m2 (Non-) (test code = 0032231493) eGFR Calculation mL/min/1.73m2 () (test code = 6426643725) ALYSSA (test code = ALYSSA) Association of [...] tests). Lab Interpretation Abnormal (test code = 06433-8) [facility] DallasaPTT2020-03-03 11:00:00 Test Item Value Reference Range Interpretation Comments APTT Patient (test See_Comment H [Automat ed code = 3173-2) message] The system which generated this result transmitted reference range : 23 - 38 Seconds . The reference range was not used to interpr et this result as normal/abnormal . ALYSSA (test code = ALYSSA) The [facility] patient population mean normal value for aPTT is 30 seconds. Lab Interpretation Abnormal (test code = 82787-7) [facility] DallasCB WITH [id number] 10:43:00 Test Item Value Reference Range Interpretation Comments WBC (test code = See_Comment [Automated message] 6690-2) The system [employer] generated this result transmitted ref erence range: 4.20 - 1 0.70 10*3/?L. The re ference range was not u sed to interpret this result as normal/abnor mal. RBC (test code = See_Comment [Automated message] 789-8) The system [employer] generated this result transmitted ref erence range: [...] RDW-SD (test code 41.5 fL 38.5-51.6 = 54705-0) RDW-CV (test code 12.8 % 12.1-15.4 = 788-0) PLT (test code = See_Comment [Automated message] 777-3) The system whic h generated this result transmitted ref erence range: 150 - 32 8 10*3/?L. The re ference range was not u sed to interpret this result as normal/abnor mal. MPV (test code = 10.7 fL 9.8-13 17739-1) NRBC/100 WBC (test See_Comment [Automat ed message] code = 1903564743) The syste m which generated this result transmitted ref erence range: 0.0 - 10 .0 /100 WBCs. The refer ence range was not u sed to interpret this result as normal/abnor mal. NRBC x10^3 (test <0.01 See_Comment [Automated message] code = 5420864850) The syste m which generated this result transmitted ref erence range: 10*3/?L. The reference range was not used to interpr et this result as normal/abnormal . GRAN MAT (NEUT) % 56.1 % (test code = 770-8) IMM GRAN % (test 0.30 % code = 3211583708) LYMPH % (test code 29.5 % = 736-9) MONO % (test code 9.9 % = 5905-5) EOS % (test code = 3.3 % 713-8) BASO % (test code 0.9 % = 706-2) GRAN MAT 3.73 10*3/uL 1.99-6.95 x10^3(ANC) (test code = 2916140664) IMM GRAN x10^3 <0.03 0-0.06 (test code = 1431213538) LYMPH x10^3 (test 1.96 10*3/uL 1.09-3.23 code = 731-0) MONO x10^3 (test 0.66 10*3/uL 0.36-1.02 code = 742-7) EOS x10^3 (test 0.22 10*3/uL 0.06-0.53 code = 711-2) BASO x10^3 (test 0.06 10*3/uL 0.01-0.09 code = 704-7) [facility] GLUCOSE (AUTOMATED)2020-01-17 01:49:00 Test Item Value Reference Range Interpretation Comments POCT GLU (test code = 6653419444) 305 mg/dL 70-110 H Lab Interpretation (test code = Abnormal 15341-7) [facility] GLUCOSE (AUTOMATED)2020-01-17 00:01:00 Test Item Value Reference Range Interpretation Comments POCT GLU (test code = 5111895395) 271 mg/dL 70-110 H Lab Interpretation (test code = Abnormal 17069-8) [facility] DallasaPTT2020-03-02 22:23:00 Test Item Value Reference Range Interpretation Comments APTT Patient (test See_Comment H [Automat ed code = 3173-2) message] The system which generated this result transmitted reference range : 23 - 38 Seconds . The reference range was not used to interpr et this result as normal/abnormal . ALYSSA (test code = ALYSSA) The [facility] patient population mean normal value for aPTT is 30 seconds. Lab Interpretation Abnormal (test code = 81506-5) [facility] DallasTROPONIN [id number] 21:22:00 Test Item Value Reference Range Interpretation Comments TROPONIN I (test 0.061 ng/mL See_Comment H [Automated code = 6000111506) message] The system which generated this result [...] ? Lab Interpretation Abnormal (test code = 72888-2) [facility] DallasPO[facility]2020-01-16 17:37:00 Test Item Value Reference Range Interpretation Comments POCT GLU (test code = 6274774624) 271 mg/dL 70-110 H Lab Interpretation (test code = Abnormal 01197-3) [facility] DallasaPTT2020-03-02 12:47:00 Test Item Value Reference Range Interpretation Comments APTT Patient (test See_Comment HH [Automat ed code = 3173-2) message] The system which generated this result transmitted reference range : 23 - 38 Seconds . The reference range was not used to interpr et this result as normal/abnormal . ALYSSA (test code = ALYSSA) The [facility] patient population mean normal value for aPTT is 30 seconds. Lab Interpretation Abnormal (test code = 76062-9) [facility] [id number] 12:35:00 Test Item Value Reference Range Interpretation Comments TROPONIN I (test 0.074 ng/mL See_Comment H [Automated code = 4645187832) message] The system which generated this result [...] ? Lab Interpretation Abnormal (test code = 44489-9) [facility] (43449)(TOTAL CHOLESTEROL, TRIGLYCERIDES, HDL)2020-01-16 12:23:00 Test Item Value Reference Range Interpretation Comments CHOL (test code = 95 mg/dL 120-200 L 7915020238) HDL (test code = 44 mg/dL >40 5764633478) HDLC RATIO (test code = See_Comment [Au tomated message] 2917371800) The system [employer] generated this result transmitted ref erence range: <=5.0. T he reference range was not used to int erpret this result as normal/abnormal . TRIG (test code = 89 mg/dL 30-170 1447701075) LDL CHOL (test code = 33 mg/dL See_Comment [Auto mated message] 47601-0) The system [employer] generated this result transmitted ref erence range: <=160. T he reference range was not used to int erpret this result as normal/abnormal . VLDL (test code = 18 mg/dL 5-60 9839653476) Lab Interpretation (test Abnormal code = 02371-0) [facility]cos[facility] Hem[facility] (A1C)2020-01-16 09:03:00 Test Item Value Reference [...] Indicated Lab Interpretation Abnormal (test code = 95512-7) [facility] DallasCritical [id number] 05:48:18Charanjit Heck MD ? ? 01/15/2020 11:48 [...] of old charts and examination of patientUnTexas [facility] ChildrenProthrombin Time (PT) / [id number] 05:28:00 Test Item Value Reference Range Interpretation [...] tions. Lab Interpretation (test Normal code = 12965-9) [facility] DallasaPTT2020-03-02 05:27:00 Test Item Value Reference Range Interpretation Comments APTT Patient (test See_Comment [Automat ed code = 3173-2) message] The system which generated this result transmitted reference range : 23 - 38 Seconds . The reference range was not used to interpr et this result as normal/abnormal . ALYSSA (test code = ALYSSA) The [facility] patient population mean normal value for aPTT is 30 seconds. Lab Interpretation Normal (test code = 53268-0) [facility] DallasTroponin [id number] 05:11:00 Test Item Value Reference Range Interpretation Comments TROPONIN I (test 0.075 ng/mL See_Comment H [Automated code = 7242454231) message] The system which generated this result [...] ? Lab Interpretation Abnormal (test code = 98256-7) [facility] DallasN-TERMINAL [id number] 05:08:00 Test Item Value Reference Range Interpretation Comments NT-proBNP (test code 896 pg/mL See_Comment H [Autom ated = 1197331373) message] The system which generated this result transmitted reference range : <=450. The reference range was not used to interpret this result as normal/abnormal . ALYSSA (test code = ALYSSA) Biotin has been reported to cause a negative bias, interpret results relative to patient's use of biotin. Lab Interpretation Abnormal (test code = 49416-0) [facility] DallasB[facility] Metabolic [facility] (NA, K, CL, CO2, GLUCOSE, BUN, CREATININE, CA)2020-01-16 04:59:00 Test Item Value Reference Range Interpretation Comments NA (test code = 136 mmol/L 135-145 8249242010) K (test code = 4.0 mmol/L 3.5-5 5506471949) CL (test code = 101 mmol/L 98-108 3347767581) CO2 TOTAL (test code = 27 mmol/L 23-31 2198979915) AGAP (test code = 2-16 6116132688) BUN (test code = 17 mg/dL 7-23 6606721076) GLUCOSE (test code = 445 mg/dL 70-110 H 8700912772) CREATININE (test code = 1.29 mg/dL 0.6-1.25 H 2158176233) CALCIUM (test code = 8.8 mg/dL 8.6-10.6 5150648696) eGFR Calculation mL/min/1.73m2 (Non-) (test code = 0334605219) eGFR Calculation mL/min/1.73m2 () (test code = 4330285836) ALYSSA (test code = ALYSSA) Association of [...] tests). Lab Interpretation Abnormal (test code = 97822-6) [facility] DallasHepatic Function [facility] (ALB, T.PRO, BILI T, BU/BC, ALT, AST, ALK PHOS)2020-01-16 04:59:00 Test Item Value Reference Range Interpretation Comments TOTAL BILI (test code = 8371298195) 1.3 mg/dL 0.1-1.1 H BILI UNCON (test code = 1825759275) 1.1 mg/dL 0.1-1.1 BILI CONJ (test code = 6989892968) 0.0 mg/dL 0-0.3 T PROTEIN (test code = 5119974258) 6.3 g/dL 6.3-8.2 ALBUMIN (test code = 9570636243) 3.9 g/dL 3.5-5 ALK PHOS (test code = 7580791202) 67 U/L 34-122 ALTv (test code = 1742-6) 15 U/L 5-50 AST(SGOT) (test code = 8151679840) 23 U/L 13-40 Lab Interpretation (test code = Abnormal 38145-1) [facility] 1 [id number] 04:54:13Impression: Moderate cardiomegaly without acute pulmonary process. RL: 460 AFC: [id number] Indication: Chest pain Comparison: None available Findings: Single AP view of the chest. The cardiopericardial silhouette ismoderately enlarged. The lungs are clear bilaterally. The visualized bonythorax is intact. A thoracic neurostimulator device is in place. [facility], Radiant Results Inft User - 01/15/2020 10:55 PM CSTIndication: Chest painComparison: None availableFindings: Single AP view of the chest. The cardiopericardial silhouette ismoderately enlarged. The lungs are clear bilaterally. The visualized bonythorax is intact. A thoracic neurostimulator device is in place.IMPRESSIONImpression:Moderate cardiomegaly without acute pulmonary process.RL: 460AFC: [id number] signed by Esperanza Rosado MD, PhD at 01/15/2020 10:54 [facility] WITH [id number] 04:51:00 Test Item Value Reference Range Interpretation [...] RDW-SD (test code = 40.7 fL 38.5-51.6 13677-7) RDW-CV (test code = 12.8 % 12.1-15.4 788-0) PLT (test code = See_Comment L [Automated 777-3) message] The sy stem which generated this result transmitted reference range : 150 - 328 10*3/ ?L. The reference r corey was not used to interpret this result as normal/abnormal . MPV (test code = 10.6 fL 9.8-13 65552-7) IPF % (test code = 2.8 % 1.2-10.7 Platelet count 8884030274) measured by fluorescence method. NRBC/100 WBC (test See_Comment [Automat ed code = 4902278766) message] The system which generated this result transmitted reference range : 0.0 - 10.0 /100 WBCs. The refer ence range was not u sed to interpret th is result as normal/abnormal . NRBC x10^3 (test code <0.01 See_Comment [Auto mated = 3672552052) message] The s ystem which generated this result transmitted reference range : 10*3/?L. The reference range was not used to interpret this result as normal/abnormal . GRAN MAT (NEUT) % 56.0 % (test code = 770-8) IMM GRAN % (test code 0.20 % = 8377814619) LYMPH % (test code = 30.5 % 736-9) MONO % (test code = 9.6 % 5905-5) EOS % (test code = 2.8 % 713-8) BASO % (test code = 0.9 % 706-2) GRAN MAT x10^3(ANC) 2.98 10*3/uL 1.99-6.95 (test code = 8874435531) IMM GRAN x10^3 (test <0.03 0-0.06 code = 8597979495) LYMPH x10^3 (test code 1.62 10*3/uL 1.09-3.23 = 731-0) MONO x10^3 (test code 0.51 10*3/uL 0.36-1.02 = 742-7) EOS x10^3 (test code = 0.15 10*3/uL 0.06-0.53 711-2) BASO x10^3 (test code 0.05 10*3/uL 0.01-0.09 = 704-7) Lab Interpretation Abnormal (test code = 59173-3) [facility]
== END 2022-06-02 15:14 | disposition home health service (06) | DRG 637 ==
LOC: ER 21:54 → ERHOLD 06-01 03:54 → 3RD-ICU 06-01 05:08 → OBSVTOIN 06-01 14:17 → 3RD-ICU 06-01 19:27 → 2ND 06-02 14:18
PROVIDERS: ADMIT Internal Medicine Nephrology; ATTEND Internal Medicine Nephrology
DX: E11.65 Type 2 diabetes mellitus with hyperglycemia (principal); G93.41 Metabolic encephalopathy; N18.4 Chronic kidney disease, stage 4 (severe); I24.8 Other forms of acute ischemic heart disease; F02.81 Dementia in other diseases classified elsewhere, unspecified severity, with behavioral disturbance; E87.1 Hypo-osmolality and hyponatremia; N30.00 Acute cystitis without hematuria; I12.9 Hypertensive chronic kidney disease with stage 1 through stage 4 chronic kidney disease, or unspecified chronic kidney disease; E11.22 Type 2 diabetes mellitus with diabetic chronic kidney disease; G30.9 Alzheimer's disease, unspecified; M25.551 Pain in right hip; G89.11 Acute pain due to trauma; W05.0XXA Fall from non-moving wheelchair, initial encounter
CPT/HCPCS: 36415; 70450; 71250; 72125; 72170; 80048; 81001; 81003; 81015; 82010; 82947; 83735; 84132; 84484; 85025; 87086; 87088; 93005; 96374; 96375; 99285; G0378; J1644; J1815; J2001; J2270; J2405; J3480; J7030; J7040; U0003

== ENCOUNTER 2022-07-10 12:49 | Emergency (ER) | payer OTHER ==
--- OUTSIDE RECORDS SUMMARY | 2022-07-10 13:13 | XMS REPORT | Continuity of Care Document ---
:1940 Author Organization [facility] t Address [address] [place] [address] Care Team Providers Name Role Phone Trang WOOTEN, Jono Primary Care Physician Jim Baldwin Attending Clinician Unavailable Anneliese Batista Attending Clinician Unavailable Candace STONER, Supa Chapman Attending Clinician Unavailable EVE RAE Attending Clinician Unavailable Ric Childers DO Attending Clinician Eve Rae DO Attending Clinician Isatu Silva RN Attending Clinician Unavailable PERFECTO GARNICA Attending Clinician Unavailable PERFECTO GARNICA Attending Clinician Unavailable Sarwat WOOTEN, Davis Chapman Attending Clinician Jack Parisi MD, Daisha Attending Clinician Mara Lama DO Attending Clinician Sonny Garcia DO Attending Clinician LUZ ANDREWS Attending Clinician Unavailable Luz Medina Attending Clinician BRODIE MURGUIA Attending Clinician Unavailable ANGELIKA AGUILAR Attending Clinician Unavailable Angelika Aguilar DO Attending Clinician Jono Costello MD Attending Clinician Jayson Aguilar MD Attending Clinician MD JAYSON AGUILAR Attending Clinician Unavailable Doctor Unassigned, [place] Attending Clinician Unavailable AIDA SHAH Attending Clinician Unavailable Vidal WOOTEN, Martha Kumar Attending Clinician Aida Shah MD Attending Clinician Pcp, Patient Does Not Have A Attending Clinician [phone] Nallely Meeks Attending Clinician Charanjit Heck MD Attending Clinician Jamel Flores MD Attending Clinician Sherrell George RN Attending Clinician Sallie Brown Attending Clinician JAMEL FLORES Attending Clinician Unavailable Kamryn GONG, Myles Herrera Attending Clinician MYLES HARRY Attending Clinician Unavailable Raju_P Attending Clinician Unavailable Silvina STONER, Prema M Attending Clinician Julio Cesar WOOTEN, Sarah Attending Clinician SARAH HARRELL Attending Clinician Unavailable Renan WOOTEN, Bobo Belcher Attending Clinician Steven WOOTEN, Lulu Attending Clinician LULU HARRIS Attending Clinician Unavailable ROSEMARY LARSEN Attending Clinician Unavailable Chava WOOTEN, Rosemary Attending Clinician Wes STONER, Ana M Attending Clinician Physician, No Primary or Family Admitting Clinician UnavailEVE Koenig Admitting Clinician Unavailable Eve Rae DO Admitting Clinician DAISHA WAYNE Admitting Clinician Unavailable Daisha Wayne MD Admitting Clinician BRODIE MURGUIA Admitting Clinician Unavailable ANGELIKA AGUILAR Admitting Clinician Unavailable JAYSON AGUILAR Admitting Clinician Unavailable MD JAYSON AGUILAR Admitting Clinician Unavailable AIDA SHAH Admitting Clinician Unavailable Aida Shah MD Admitting Clinician Jamel Flores MD Admitting Clinician JAMEL FLORES Admitting Clinician Unavailable MYLES HARRY Admitting Clinician Unavailable Rajrenu_P Admitting Clinician Unavailable Sarah Harrell MD Admitting Clinician SARAH HARRELL Admitting Clinician Unavailable Lulu Harris MD Admitting Clinician LULU HARRIS Admitting Clinician Unavailable Payers Payer Name Policy Type Policy Number Effective Date Expiration Date Stacy torres [facility] JABIER [id number] 2020 00:00:00 [facility] [id number] 2019 DUAL COMPLETE HMO 00:00:00 [place]ICAID OF [place] [id number] 2018 00:00:00 Problems Condition Condition Condition Status Onset Resolution Last Treating Co mments Source Name Details Category Date Date Treatment Clinician Date 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 7-21 it y of d severe d severe 00:00: [place] protein-ca protein-ca 00 Me dical sindhu manley Branch malnutriti malnutriti on on Dyslipidem Dyslipidem Disease Active U nivers ia ia 7-20 ity of 00:00: [place] [facility] Elevated Elevated Disease Active Unive rs brain brain 7-20 ity of natriureti natriureti 00:[place] c peptide c peptide 00 Medi birdie (BNP) (BNP) Branch level level Closed Closed Disease Active Univers left hip left hip 7-19 ity of fracture, fracture, 00:00: Sylvia s initial initial 00 Medical encounter encounter Bran ch Elevated Elevated Disease Active Unive rs troponin troponin 7- ity of 00:00: [place] [facility] Left hip Left hip Disease Active Unive rs pain pain 7- ity of 00:00: [place] [facility] STEMI STEMI Diagnosis Active 2022-03-18 Mem oria Active 420 21:49:00 l 03/05/2022 00:00: Titus BECK [address] Unstable Unstable Disease Active 2019-0 Unive rs angina angina 5-07 ity of 00:00: [place] [facility] ALBA (acute ALBA (acute Disease Active 2020-0 U nivers kidney kidney 4-21 ity of injury) injury) 00:00: [place] [facility] Chest pain Chest pain Disease Active 2020-0 U nivers 4-21 ity of 00:00: [place] [facility] Chest pain Chest pain Disease Active 2020-0 U 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 4-15 it y of 00:00: [place] [facility] 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 3-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 00:00: [place] 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 Chest pain Chest pain Disease Active 2018-11 M ethodi 11-24 st 00:00: Hospita 00 l Left lower Left lower Disease Active 2018-11 U nivers lobe lobe 1-06 ity of pneumonia pneumonia 00:[place] PNA PNA Disease Active 2018-11 Univers (pneumonia (pneumonia 0-25 it y of ) ) 00:00: [place] 00 Medical Branch Acute on Acute on Disease Active 2018-11 Unive rs chronic chronic 0-25 ity of combined combined 00:00: [place] systolic systolic 00 Medica l and and Branch 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 Dyspnea Dyspnea Disease Active 2018-11 Univers 0-23 ity of 00:00: [place] [facility] CHF CHF Disease Active Univers exacerbati exacerbati 2-17 it y of on on 00:00: [place] 00 Medical Branch Essential Essential Disease Active [...] it y of on on 00:00: [place] 00 Medical Branch Acute on Acute on Disease Active Unive rs chronic chronic 1-28 ity of systolic systolic 00:00: [place] CHF CHF 00 Medical (congestiv (congestiv Br anch e heart e heart failure) failure) CHF CHF Disease Active Methodi exacerbati exacerbati 1-28 st on on 00:00: Hospita 00 l Essential Essential Disease Active Met hodi hypertensi hypertensi 1-28 st on on 00:00: Hospita 00 l 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 00:00: Hospit a 00 l Elevated Elevated Disease Active Unive rs troponin I troponin I 1-27 it y of level level 00:00: [place] 00 Medical Branch DE LA CRUZ DE LA CRUZ Disease Active Univers (dyspnea (dyspnea 1-27 ity of on on 00:00: [place] exertion) exertion) 00 Medi birdie Branch Coronary Coronary Disease Active Unive rs artery artery 1-27 ity of disease disease 00:00: [place] involving involving 00 Medi birdie [place] Branch coronary 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[place] 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 12-12 ity of kidney kidney 00:00: [place] disease disease 00 Medical Branch Coronary Coronary Disease Active Unive rs artery artery 12-12 ity of disease disease 00:00: [place] involving involving 00 Medi birdie [place] Branch coronary 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[place] heart heart without without angina angina pectoris pectoris NSTEMI NSTEMI Disease [...] diabetes mellitus mellitus 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 4-10 st athy athy 00:00: Hospita associated associated 00 l with type with type 2 diabetes 2 diabetes mellitus 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 00:00: Hosp lily with with 00 l behavioral behavioral disturbanc disturbanc e e 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 00:00: Hospit a of lumbar of lumbar 00 l spine spine RENAL MASS RENAL Diagnosis Active 2013-03-04 Memoria MASS 02-04 10:52:00 l Active 00:00: [place] 02/04/2013 00 [facility] 569.3 569.3 Diagnosis Active 2013-02-03 Me moria Active 01-24 09:00:00 l 01/24/2013 00:00: Titus calderon [facility] Sleep Sleep Problem Resolve 2022-03-12 Manjit greg apnea apnea d 23:51:00 l (finding) (finding) Yashira hood Resolved Problem 03/12/2022 [facility] Diabetes Diabetes Problem Active 2022-03-12 Memoria mellitus mellitus 23:51:00 l (disorder) (disorder) Favio anaya Active Problem 03/12/2022 [facility] Chronic Chronic Problem Active 2022-03-12 Me moria back pain back pain 23:51:00 l (disorder) (disorder) He rmann Active Problem 03/12/2022 [facility] Continuous Problem Active 2022-03-12 M emoria opioid Continuous 23:51:00 l dependence opioid Titus n (disorder) dependence (disorder) Active Problem 03/12/2022 [facility] Datatype(D Datatype( Diagnosis Active 2013-02-03 Memoria G1.4)- DG1.4)- 09:00:00 l Active [facility] Datatype(D Datatype( Diagnosis Active 2013-03-04 Memoria G1.4)- DG1.4)- 10:52:00 l Active Titus calderon [facility] DM DM Problem Resolve 2013-03-09 Manjit greg (diabetes (diabetes d 20:26:01 l mellitus) mellitus) Herm sana Resolved Problem 03/09/2013 [facility] Heart Heart Problem Resolve 2013-03-09 Manjit greg attack attack d 20:26:01 l Resolved [place] Problem 03/09/2013 [facility] HTN HTN Problem Resolve 2013-03-09 Manjit greg Resolved d 20:26:01 l Problem [place] 03/09/2013 [facility] Sleep Sleep Problem Resolve 2013-03-09 Manjit greg apnea apnea d 20:26:01 l Resolved [place] Problem 03/09/2013 [facility] Acute Acute Problem Resolve 2022-03-12 Manjit greg myocardial myocardial d 23:51:00 l infarction infarction He rmann (disorder) (disorder) Resolved Problem 03/12/2022 [facility] Allergies, Adverse Reactions, Alerts Allergy Allergy Status Severity Reaction(s) Onset Inactive Treating Comm ents Source Name Type Date Date Clinician No Known DA Active U [facility] Allergie - Clear s 00:00: [place] 00 [facility] NO KNOWN Drug Active [facility] ALLERGIE Class ity of [facility] Family History Family Member Diagnosis Comments Start Date Stop Date Source Natural father Heart disease [facility] Natural father Seizures [facility] Natural mother Alzheimer's disease [facility] Natural mother Cancer [facility] Social History Social Habit Start Date Stop Date Quantity Comments Source History of tobacco User of Univ sity of use smokeless [facility] tobacco [place] Exposure to 2022-05-24 2022-06-03 Not sure Jessie of SARS-CoV-2 (event) 00:00:00 09:43:00 [facility] Cigarette 2022-06-03 2022-06-03 University of pack-years 00:00:00 00:00:00 [facility] Alcohol intake 2021-12-25 2021-12-25 Current Gnosticist 00:00:00 00:00:00 non-drinker of Hospital alcohol (finding) Cigarettes smoked 2018-10-27 2018-10-[address] current (pack per 00:00:00 00:00:00 Hospita l day) - Reported Tobacco use and 2018-10-27 2018-10-27 Smokeless Gnosticist exposure 00:00:00 00:00:00 tobacco non-user Hospital Sex Assigned At [birth year] Gnosticist 00:00:00 00:00:00 Hospital Smoking Status Start Date Stop Date Source Ex-smoker 2022-06-03 00:00:00 2022-06-03 00:00:00 [facility] Medications Ordered Filled Start Stop Current Ordering Indication Dosage Frequency Signature Comments Components Source Medication Medication Date Date Medication? Clinician (SIG) Name Name aspirin 81 0 Yes 81mg Take 1 Unive rs mg EC 7-27 tablet by ity of tablet 00:00: mouth in [place] 00 the Medical morning. Branch metoprolol Yes 25mg Take 1 Unive rs succinate 7-27 tablet by ity o f XL 25 mg 24 00:00: mouth [place] hr tablet 00 the Medical morning. Branch spironolact Yes 12.5mg Take 0.5 Univers one 25 mg 7-27 tablets by ity of tablet 00:00: mouth in [place] 00 the Medical morning. Branch aspirin 81 0 Yes 81mg Take 1 Unive rs mg EC 7-27 tablet by ity of tablet 00:00: mouth in [place] 00 the Medical morning. Branch metoprolol 0 Yes 25mg Take 1 Unive rs succinate 7-27 tablet by ity o f XL 25 mg 24 00:00: [place] tablet 00 the Medical morning. Branch spironolact Yes 12.5mg Take 0.5 Univers one 25 mg 7-27 tablets by ity of tablet 00:00: mouth in [place] 00 the Medical morning. Branch nitroglycer 2021- No .4mg Take 0.4 U nivers in 06-10- mg by ity of (NITRO-TIME 12:34: 00:00 mouth [place] ORAL) 19 :00 needed for Medical Other Branch (chest pain every 5 minutes x 3 doses). donepeziL 5 2021- No 5mg Take 5 mg Univers mg tablet 06-10 by mouth ity o f 12:34: 00:00 at [place] 19 :00 bedtime. Medical Branch atorvastati 2021- No 40mg Take 40 mg Univers n 40 mg 06-10 by mouth ity of tablet 12:34: 00:00 at [place] 19 :00 bedtime. Medical Branch gabapentin 2021- No 100mg Take 100 U nivers 300 mg 06-10 mg by ity of capsule 12:34: 00:00 mouth in [place] 19 :00 the Medical morning Branch and 100 mg at noon and 100 mg in the evening. empaglifloz 2021- No 10mg Take 10 mg Univers in 06-10 by mouth ity of (JARDIANCE) 12:34: 00:00 daily. [place] as 10 mg 19 :00 Medical Branch cyclobenzap Yes 10mg Take 1 Univ ers rine 10 mg 06-10 tablet by ity of tablet 00:00: mouth in [place] 00 the Medical morning Branch and 1 tablet at noon and 1 tablet in the evening. docusate 0 Yes 100mg Take 1 Univer s 100 mg 06-10 capsule by ity of capsule 00:00: mouth in [place] 00 the Medical morning Branch and 1 capsule in the evening. atorvastati 2021-0 Yes 40mg Take 1 Univ ers n 40 mg - tablet by ity of tablet 00:00: mouth at [place] [address] bedtime. Medical Branch donepeziL 5 2021-0 Yes 5mg Take 1 Univ ers mg tablet 06-10 tablet by ity o f 00:00: mouth at [place] [address] bedtime. Medical Branch empaglifloz 2021-0 Yes 10mg Take 1 Univ ers in 7-26 tablet by ity of (JARDIANCE) 00:00: [place] 10 mg 00 the Medical morning. Branch furosemide 2022-0 Yes 20mg Take 1 Unive rs 20 mg 7-26 tablet by ity of tablet 00:00: mouth in [place] 00 the Medical morning. Branch HYDROcodone 2021-0 Yes 1{tbl} Take 1 Un mel -acetaminop 7-26 tablet by ity of hen 5-325 00:00: mouth [place] mg tablet 00 every 6 Medical (six) Branch hours as needed for Pain (scale 7-10). cyclobenzap 2022-0 Yes 10mg Take 1 Univ ers rine 10 mg 7-26 tablet by ity of tablet 00:00: mouth in [place] 00 the Medical morning Branch and 1 tablet at noon and 1 tablet in the evening. docusate 2022-0 Yes 100mg Take 1 Univer s 100 mg 7-26 capsule by ity of capsule 00:00: mouth in [place] 00 the Medical morning Branch and 1 capsule in the evening. atorvastati 2-0 Yes 40mg Take 1 Univ ers n 40 mg 7-26 tablet by ity of tablet 00:00: mouth at [place] [address] bedtime. Medical Branch donepeziL 5 2021-0 Yes 5mg Take 1 Univ ers mg tablet 7-26 tablet by ity o f 00:00: mouth at [place] [address] bedtime. Medical Branch empaglifloz 2-0 Yes 10mg Take 1 Univ ers in 7-26 tablet by ity of (JARDIANCE) 00:00: [place] 10 mg 00 the Medical morning. Branch furosemide 2-0 Yes 20mg Take 1 Unive rs 20 mg 7-26 tablet by ity of tablet 00:00: mouth in [place] 00 the Medical morning. Branch HYDROcodone 2-0 Yes 1{tbl} Take 1 Un mel -acetaminop 7-26 tablet by ity of hen 5-325 00:00: mouth [place] mg tablet 00 every 6 Medical (six) Branch hours as needed for Pain (scale 7-10). cyclobenzap 2022-0 Yes 10mg 10 mg, Univ ers rine 7-25 Oral, TID, ity of (FLEXERIL) 19:00: First dose [place] tablet 10 00 on Mon Medical mg 06/09/22 at Branch 1400, Until Discontinu ed, Routine aspirin EC Yes 81mg 81 mg, Unive rs tablet 81 06-09 Oral, ity of mg 14:00: DAILY, [place] 00 First dose Medical on Mon Branch 06/09/22 at 0900, Until Discontinu ed, Routine NaCl 0.9% 2021- No 500mL at 50 Unive rs (NS) IV 06-08 07-24 mL/hr, IV ity of infusion 21:45: 21:06 Infusion, [place] 500 mL 00 :00 ONCE, 1 Medical dose, On Branch [place] 06/08/22 at 1645, Routine Sliding Yes Subcutaneo Univ ers Scale -24 us, Q4H, ity of Insulin - 20:00: [place] Lispro 00 on [facility] (HumaLOG) + 06/08/22 at Br anch Fsbg 1500, Testing Until Discontinu ed, Routine metoprolol Yes 25mg 25 mg, Unive rs succinate 06-08 Oral, ity of XL (TOPROL 14:00: DAILY, [place] XL) tablet 00 First dose Med ical 25 mg (after Branch last modificati on) on [place] 06/08/22 at 0900, Until Discontinu ed, Routine furosemide 2021- No 80mg 80 mg, Univ ers (LASIX) 06-06 Oral, ity of tablet 80 14:00: 19:53 QAM+PM, [place] mg 00 :33 First dose Medical on Thu [place] 06/06/22 at 0900, Until Discontinu ed, Routine traMADoL 2021- No 50mg 50 mg, Univer s (ULTRAM) 06-06 Oral, ity of tablet 50 05:00: 04:59 Q8HPRN, [place] mg 00 :00 Starting Medical on Thu [place] 06/06/22 at 0000, Until 06/07/22 at 2359, Routine, Pain (scale 4-6) morpHINE (2 2021- No 2mg 2 mg, Slow Univers mg/mL) 06-05 IV Push, ity of injection 2 07:15: 06:18 ONCE, 1 [place] mg 00 :00 dose, On Medical Madhavi [place] 06/05/22 at 0215, Routine morpHINE (2 2021- No 2mg 2 mg, Slow Univers mg/mL) 06-05 IV Push, ity of injection 2 06:00: 04:51 ONCE, 1 [place] mg 00 :00 dose, On Medical Madhavi Branch 06/05/22 at 0100, Routine donepeziL Yes 5mg 5 mg, Univers (ARICEPT) - Oral, QHS, ity of tablet 5 mg 02:00: First dose [place] 00 on Thu Medical 06/04/22 at Branch 2100, Until Discontinu ed, Routine acetaminoph Yes 1000mg 1,000 mg, Univers en - Oral, Q8H, ity of (TYLENOL) 19:15: First dose [place] tablet 00 on Thu Medical 1,000 mg 06/04/22 at [facility] h 1415, Until Discontinu ed, Routine sulfur 2021- No [id number] 5mL 5 mL, Unive rs hexafluorid 06-04 Intravenou i ty of e microsphr 19:15: 19:15 s, ONCE, 1 [place] (LUMASON) 00 :00 dose, On Medica l injection 5 Thu Branch mL 06/04/22 at 1415, Routine
juice bar team member approving Restricted medication : ALEXANDRA STEPHENSON cyclobenzap 2021- No 10mg 10 mg, Uni vers rine 06-04 Oral, ity of (FLEXERIL) 16:40: 22:06 TIDPRN, [place] tablet 10 06 :37 Starting Medica l mg on Thu Branch 06/04/22 at 1140, Until 06/08/22 at 1706, Routine, Muscle Spasms HYDROcodone 2021- Yes 1{tbl} 1 tablet, Univers -acetaminop -20 Oral, ity of hen (NORCO 15:25: Q6HPRN, [place] 5) 5-325 mg 21 Starting Medi birdie tablet 1 on Thu Branch tablet 06/04/22 at 1025, Until Discontinu ed, Routine, Pain (scale 7-10) spironolact Yes 12.5mg 12.5 mg, Univers one Oral, ity of (ALDACTONE) 14:00: DAILY, [place] tablet 12.5 00 First dose Me dical mg on Thu Branch 06/04/22 at 0900, Until Discontinu ed, Routine empaglifloz 2021- No 10mg 10 mg, Uni vers in 06-04 Oral, ity of (JARDIANCE) 14:00: 20:35 DAILY, [place] tablet 10 00 :25 First dose Medi birdie mg on Thu Branch 06/04/22 at 0900, Until Discontinu ed, Routine
Is this a home medication ? Yes
Has this patient brought their own medication ? No
Phar abelino will dispense the medication from inpatient. Pharmacy will dispense the medication [facility].
[facility] allowed unless the patient is maintained on this medication at home, and home supply is unavailabl e. Does this order meet the criteria for inpatient ordering? Yes metoprolol 2021- No 12.5mg 12.5 mg, Univers succinate 06-04 Oral, ity of XL (TOPROL 14:00: 16:01 DAILY, [place] XL) tablet 00 :05 First dose Med ical 12.5 mg on Thu Branch 06/04/22 at 0900, Until Discontinu ed, Routine docusate Yes 100mg 100 mg, Unive rs (COLACE) 06-04 Oral, BID, ity o f capsule 100 13:00: First dose [place] mg 00 on Thu Medical 06/04/22 at Branch 0800, Until Discontinu ed, Routine docusate 2021- No 100mg 100 mg, Univ ers (COLACE) 06-04 Oral, BID, ity of capsule 100 13:00: 13:55 First dose [place] mg 00 :04 on Thu Medical 06/04/22 at Branch 0800, Until Discontinu ed, Routine Sliding 2021- No Subcutaneo Uni vers Scale 06-04 us, AC+HS, ity of Insulin-Reg 12:30: 19:58 First dose [place] ular + Fsbg 00 :14 on Thu Medica l Testing 06/04/22 at Branch 0730, Until Discontinu ed, Routine heparin Yes 5000U 5,000 Univers (porcine) - Units, ity of injection 03:00: Subcutaneo [place] 5,000 Units 00 us, Q8H, Medi birdie First dose Branch on Thu06/03/22 at 2200, Until Discontinu ed, Routine ondansetron Yes 4mg 4 mg, Slow Univers (ZOFRAN 06-04 IV Push, ity of (PF)) 02:20: Q6HPRN, [place] injection 4 23 Starting Medi birdie mg on Thu Branch 06/03/22 at 2120, Until Discontinu ed, Routine, Nausea and Vomiting (N/V) morpHINE (2 2021- No 2mg 2 mg, Slow Univers mg/mL) 06-04 IV Push, ity of injection 2 02:20: 15:28 Q4HPRN, [place] mg 05 :35 Starting Medical on Thu06/03/22 at 2120, Until Thu06/04/22 at 1028, Routine, Pain (scale 7-10) acetaminoph 2021- No 650mg 650 mg, U nivers en 06-04 07-20 Oral, ity of (TYLENOL) 02:20: 19:06 Q6HPRN, [place] tablet 650 01 :54 Starting Medic al mg on Thu06/03/22 at 2120, Until Thu06/04/22 at 1406, Routine, Pain (scale 1-3) dextrose Yes 250mL 250 mL, IV Un mel 10% (D10W) 06-04 Infusion, ity of bolus 02:18: PRN - SEE [place] infusion 29 INSTRUCTIO Medic al 250 mL NS, Branch Administer over 60 Minutes, Other, If blood glucose is < or = 70 mg/dL and patient is unable to swallow or has mental status changes, Starting on Thu06/03/22 at 2118
If blood glucose is < or = 70 mg/dL and patient is unable to swallow or has mental status changes (Give glucagon order if patient needs fluid restrictio n): IF IV access available: Dextrose 10%. 1. 125 mL (? bag) of D10W IV infusion - equivalent to 12.5 g dextrose 2. Blood glucose - draw blood glucose 15 minutes after D10W Administra tion. 3. If blood glucose is < 80 mg/dL, repeat.
glucagon Yes 1mg 1 mg, Univers (GLUCAGEN 06-04 Intramuscu ity of DIAGNOSTIC 02:18: lar, PRN, [place] KIT) 26 Starting Medical injection 1 on [facility] 06/03/22 at 2118, Until Discontinu ed, ADAMA, Blood Glucose < or = 70 mg/dL and patient is unable to swallow or has mental changes. gabapentin Yes 100mg 100 mg, Uni vers (NEURONTIN) 06-04 Oral, TID, it y of capsule 100 02:15: First dose [place] mg 00 on [facility] 06/03/22 at Branch 211, Until Discontinu ed, Routine atorvastati Yes 40mg 40 mg, Univ ers n (LIPITOR) 06-04 Oral, QHS, it y of tablet 40 02:15: First dose [place] mg 00 on [facility] 06/03/22 at Branch 211, Until Discontinu ed, Routine QUEtiapine Yes 25mg 25 mg, Unive rs (SEROQUEL) 06-04 Oral, ity of tablet 25 02:07: QHSPRN, [place] mg 11 Starting Medical on [facility] 06/03/22 at 2107, Until Discontinu ed, Routine, agitation/ insomnia traMADoL 2021- No 50mg 50 mg, Univer s (ULTRAM) 06-04 Oral, ity of tablet 50 01:06: 22:16 Q8HPRN, [place] mg 10 :44 Starting Medical on [facility] 06/03/22 at 2006, Until Madhavi 06/05/22 at 1716, Routine, Pain (scale 4-6) morpHINE (4 2021- No 4mg 4 mg, Slow Univers mg/mL) 06-03 IV Push, ity of injection 4 19:30: 18:37 ONCE, 1 [place] mg 00 :00 dose, On Medical [facility] 06/03/22 at 1430, Routine metoprolol 2021- No 50mg 50 mg, Univ ers tartrate 06-03 Oral, ity of (LOPRESSOR) 18:45: 19:43 ONCE, 1 [place] tablet 50 00 :00 dose, On Medica l mg [facility] Branch 06/03/22 at 1345, Routine metoprolol No 5mg 5 mg, Slow Univers (LOPRESSOR) 06-03 IV Push, ity of injection 5 17:45: 17:40 ONCE, 1 [place] mg 00 :00 dose, On Medical [facility] Branch 06/03/22 at 1245, ADAMA FENTanyl PF 2021- No 100ug 100 mcg, Univers (SUBLIMAZE 06-03 Slow IV ity o f (PF)) 14:45: 14:47 Push, [place] injection 00 :00 ONCE, 1 Medical 100 mcg dose, On Branch [facility] 06/03/22 at 0945, Routine nitroglycer Yes .4mg Take 0.4 Un mel in 7-16 mg by ity of (NITRO-TIME 16:29: mouth as [place] ORAL) 51 needed for Medical Other Branch (chest pain every 5 minutes x 3 doses). donepeziL 5 Yes 5mg Take 5 mg U nivers mg tablet 7-16 by mouth ity of 16:29: at [place] [address] bedtime. Medical Branch atorvastati Yes 40mg Take 40 mg Univers n 40 mg 7-16 by mouth ity of tablet 16:29: at [place] [address] bedtime. Medical Branch gabapentin Yes 100mg Take 100 Un mel 300 mg 7-16 mg by ity of capsule 16:29: mouth in [place] [address] the Medical morning Branch and 100 mg at noon and 100 mg in the evening. empaglifloz Yes 10mg Take 10 mg Univers in 7-16 by mouth ity of (JARDIANCE) 16:29: [place] 10 [place] 51 Medical Branch nitroglycer Yes .4mg Take 0.4 Un mel in 7-16 mg by ity of (NITRO-TIME 16:29: mouth [place] ORAL) 51 needed for Medical Other Branch (chest pain every 5 minutes x 3 doses). donepeziL 5 2022-0 Yes 5mg Take 5 mg U nivers mg tablet 7-16 by mouth ity of 16:29: at [place] [address] bedtime. Medical Branch atorvastati Yes 40mg Take 40 mg Univers n 40 mg 7-16 by mouth ity of tablet 16:29: at [place] [address] bedtime. Medical Branch gabapentin 2021-0 Yes 100mg Take 100 Un mel 300 mg 7-16 mg by ity of capsule 16:29: mouth in [place] [address] the Medical morning Branch and 100 mg at noon and 100 mg in the evening. empaglifloz Yes 10mg Take 10 mg [facility] in 7-16 by mouth ity of (JARDIANCE) 16:29: [place]. [place] 10 mg 51 Medical Branch lidocaine Yes 3{patch 3 Patch, U nivers (LIDODERM) 7-16 } Topical, ity o f 5 % (700 14:00: Administer [place] mg/patch) 00 over 12 Medical patch 3 Hours, Branch Patch DAILY, First dose (after last modificati on) on 05/31/22 at 0900, Until Discontinu ed, Routine spironolact Yes 12.5mg Take 0.5 Univers one 25 mg 7-16 tablets by ity of tablet 00:00: mouth in [place] [address] the Medical morning. Branch lidocaine 5 Yes 3{patch Apply 3 Univers % (700 7-16 } Patches to ity of mg/patch) 00:00: area(s[place] in [place] patch 00 the Medical morning. Branch clopidogreL 2021-0 Yes 75mg Take 1 Univ ers 75 mg 7-16 tablet by ity of tablet 00:00: mouth in [place] 00 the Medical morning. Branch aspirin 81 2021-0 Yes 81mg Take 1 Unive rs mg chewable 7-16 tablet by ity of tablet 00:00: mouth in [place] 00 the Medical morning. Branch metoprolol 2021-0 Yes 12.5mg Take 0.5 U nivers succinate 7-16 tablets by ity of XL 25 mg 24 00:00: mouth [place] hr tablet 00 the Medical morning. Branch spironolact 2021-0 Yes 12.5mg Take 0.5 Univers one 25 mg 7-16 tablets by ity of tablet 00:00: mouth in [place] 00 the Medical morning. Branch lidocaine 5 0 Yes 3{patch Apply 3 Univers % (700 7-16 } Patches to ity of mg/patch) 00:00: area(s[place] in [place] patch 00 the Medical morning. Branch clopidogreL 0 Yes 75mg Take 1 Univ ers 75 mg 7-16 tablet by ity of tablet 00:00: mouth in [place] 00 the Medical morning. Branch aspirin 81 0 Yes 81mg Take 1 Unive rs mg chewable 7-16 tablet by ity of tablet 00:00: mouth in [place] 00 the Medical morning. Branch metoprolol Yes 12.5mg Take 0.5 U nivers succinate 7-16 tablets by ity of XL 25 mg 24 00:00: mouth in [place] hr tablet 00 the Medical morning. Branch spironolact 2021-2021- No 12.5mg Take 0.5 Univers one 25 mg 7-16 -26 tablets by ity of tablet 00:00: 00:00 mouth in [place] 00 :00 the Medical morning. Branch lidocaine 5 2021- No 3{patch Apply 3 Univers % (700 05-31- } Patches to ity of mg/patch) 00:00: 00:00 area(s) in [place] patch 00 :00 the Medical morning. Branch clopidogreL 2021-2021- No 75mg Take 1 Uni vers 75 mg 7-16 -26 tablet by ity of tablet 00:00: 00:00 mouth in [place] 00 :00 the Medical morning. Branch aspirin 81 2021-0 2021- No 81mg Take 1 Univ ers mg chewable -16 -26 tablet by it y of tablet 00:00: 00:00 mouth in [place] 00 :00 the Medical morning. Branch metoprolol 2021-0 2021- No 12.5mg Take 0.5 Univers succinate -16 07-26 tablets by ity of XL 25 mg 24 00:00: 00:00 mouth in [place] hr tablet 00 :00 the Medical morning. Branch lidocaine 2021-2021- No 1{patch 1 Patch, Univers (LIDODERM) 05-30-16 } Topical, ity of 5 % (700 18:00: 05:40 Administer [place] mg/patch) 00 :00 over 12 Medical patch 1 Hours, Branch Patch ONCE, 1 dose, On Thu05/30/22 at 1300, Routine trazodone 2021-2021- No 50mg Take 50 mg U nivers HCl 05-30-15 by mouth ity of (TRAZODONE 16:26: 00:00 every [place] ORAL) 33 :00 evening. Medical Branch potassium 2021-2021- No 10meq Take 10 Uni vers chloride 10 05-30-15 mEq by ity o f mEq CR 16:26: 00:00 mouth [place] tablet 33 :00 daily. Medical Branch losartan 25 2021-2021- No 25mg Take 25 mg Univers mg tablet 05-30-15 by mouth ity o f 16:26: 00:00 in the [place] 33 :00 morning. Medical Branch isosorbide 2021-2021- No 120mg Take 120 U nivers mononitrate 15 07-15 mg by ity of 60 mg 24 hr 16:26: 00:00 mouth. [place] tablet 33 :00 Medical Branch furosemide 2021-2021- No 20mg Take 20 mg Univers 20 mg -30 05-15 by mouth ity of tablet 16:26: 00:00 in the [place] 33 :00 morning. Medical Branch metoprolol 2021-2021- No 25mg Take 25 mg Univers succinate 05-30-15 by mouth ity o f XL 25 mg 24 16:26: 00:00 in the [place] [facility] as hr tablet 33 :00 morning. Medica l Branch docusate 2021-0 Yes 100mg Take 1 Univer s 100 mg 7-15 capsule by ity of capsule 00:00: mouth in [place] 00 the Medical morning Branch and 1 capsule in the evening. furosemide 2021-0 Yes 80mg Take 1 Unive rs 80 mg 7-15 tablet by ity of tablet 00:00: mouth [place] 00 every Medical morning Branch and evening. docusate 2021-0 Yes 100mg Take 1 Univer s 100 mg 7-15 capsule by ity of capsule 00:00: mouth in [place] 00 the Medical morning Branch and 1 capsule in the evening. furosemide 2021-0 Yes 80mg Take 1 Unive rs 80 mg 7-15 tablet by ity of tablet 00:00: mouth [place] 00 every Medical morning Branch and evening. docusate 2021- No 100mg Take 1 Unive rs 100 mg 05-30 capsule by ity of capsule 00:00: 00:00 mouth in [place] 00 :00 the Medical morning Branch and 1 capsule in the evening. furosemide 2021- No 80mg Take 1 Univ ers 80 mg 05-30 tablet by ity of tablet 00:00: 00:00 mouth [place] 00 :00 every Medical morning Branch and evening. oxyCODONE-a [...] Yes 2mg 2 mg, Slow Univers mg/mL) 7 IV Push, ity of injection 2 22:15: Q6HPRN, [place] mg 00 Starting Medical on Thu [place] 05/28/22 at 1715, Until Discontinu ed, Routine, Pain (scale 7-10) oxyCODONE-a 0 Yes 1{tbl} 1 tablet, Univers cetaminophe 05-28 Oral, ity of n 22:08: Q4HPRN, [place] (PERCOCET) 46 Starting Medic al 5-325 mg on Thu per tablet 05/28/22 at 1 tablet 1708, Until Discontinu ed, Routine, Pain (scale 4-6) furosemide 2021-0 Yes 80mg 80 mg, Unive rs (LASIX) 05-28 Oral, ity of tablet 80 22:00: QAM+PM, [place] mg 00 First dose Medical on Thu [place] 05/28/22 at 1700, Until Discontinu ed, Routine metoprolol Yes 12.5mg 12.5 mg, U nivers succinate 05-28 Oral, ity of XL (TOPROL 20:15: DAILY, [place] XL) tablet 00 First dose Med ical 12.5 mg on Thu [place] 05/28/22 at 1515, Until Discontinu ed, Routine methocarbam No 500mg 500 mg, U nivers oL 05-28 07-15 Oral, QID, ity of (ROBAXIN) 17:00: 13:02 First dose [place] tablet 500 00 :36 on [facility] mg 05/28/22 at Branch 1200, Until Discontinu ed, Routine gabapentin 0 Yes 100mg 100 mg, Uni vers (NEURONTIN) 05-27 Oral, TID, it y of capsule 100 19:00: First dose [place] mg 00 on [facility] 05/27/22 at Branch 1400, Until Discontinu ed, Routine QUEtiapine 0 Yes 25mg 25 mg, Unive rs (SEROQUEL) 05-27 Oral, ity of tablet 25 18:45: BIDPRN, [place] mg 00 Starting Medical on [facility] 05/27/22 at 1345, Until Discontinu ed, Routine, agitation, anxiety QUEtiapine 0 2021- No 25mg 25 mg, Univ ers (SEROQUEL) 05-27 07-12 Oral, BID, it y of tablet 25 13:00: 18:31 First dose [place] mg 00 :35 on [facility] 05/27/22 at Branch 0800, Until Discontinu ed, Routine HYDROcodone 2021- No 1{tbl} 1 tablet, Univers -acetaminop 05-27 Oral, ity of hen (NORCO) 05:49: 22:09 Q4HPRN, [place] 10-325 mg 42 :14 Starting Medica l tablet 1 on [facility] tablet 05/27/22 at 0049, Until Thu05/28/22 at 1709, Routine, Pain (scale 4-6) morpHINE (4 2021- No 4mg 4 mg, Slow Univers mg/mL) 05-27 IV Push, ity of injection 4 05:49: 22:09 Q4HPRN, [place] mg 29 :14 Starting Medical on [facility] 05/27/22 at 0049, Until Thu05/28/22 at 1709, Routine, Pain (scale 7-10) QUEtiapine 2021- No 25mg 25 mg, Univ ers (SEROQUEL) 05-26 Oral, ity of tablet 25 23:30: 23:25 ONCE, 1 [place] mg 00 :00 dose, On Medical [facility] 05/26/22 at 1830, Routine sulfur 2021- No [id number] 5mL 5 mL, Unive rs hexafluorid 05-26 Intravenou i ty of e microsphr 15:00: 15:00 s, ONCE, 1 [place] (LUMASON) 00 :00 dose, On Medica l injection 5 [facility] mL 05/26/22 at 1000, Routine
juice bar team member approving Restricted medication : KITTY GAGE clopidogreL Yes 75mg 75 mg, Univ ers (PLAVIX) 75 05-26 Oral, ity of mg tablet 14:00: DAILY, [place] 75 mg 00 First dose Medical on [facility] 05/26/22 at 0900, Until Discontinu ed, Routine aspirin Yes 81mg 81 mg, Univers chewable 05-26 Oral, ity of tablet 81 14:00: DAILY, [place] mg 00 First dose Medical on [facility] 05/26/22 at 0900, Until Discontinu ed, Routine ketorolac 2021- No 15mg 15 mg, Unive rs (TORADOL) 05-25 Slow IV ity of injection 21:45: 21:01 Push, [place] 15 mg 00 :00 ONCE, 1 Medical dose, On [facility] 05/25/22 at 1645, Routine ALPRAZolam 2021- No .25mg 0.25 mg, U nivers (XANAX) 05-25 Oral, ity of tablet 0.25 21:45: 21:01 ONCE, 1 [place] mg 00 :00 dose, On Medical [facility] 05/25/22 at 1645, Routine furosemide 2021- No 40mg 40 mg, Univ ers (LASIX) 05-25 Slow IV ity of injection 19:00: 19:49 Push, [place] 40 mg 00 :32 Q12H, Medical First dose Branch on [place] 05/25/22 at 1400, Until Discontinu ed, Routine docusate Yes 100mg 100 mg, Unive rs (COLACE) 05-25 Oral, BID, ity o f capsule 100 13:00: First dose [place] mg 00 on [facility] 05/25/22 at Branch 0800, Until Discontinu ed, Routine ketorolac No 15mg 15 mg, Unive rs (TORADOL) 05-25 Slow IV ity of injection 04:30: 04:18 Push, [place] 15 mg 00 :00 ONCE, 1 Medical dose, On [facility] 05/24/22 at 2330, Routine atorvastati Yes 40mg 40 mg, Univ ers n (LIPITOR) 05-25 Oral, QHS, it y of tablet 40 02:00: First dose [place] mg 00 on [facility] 05/24/22 at Branch 2100, Until Discontinu ed, Routine lidocaine 2021- No 2{patch 2 Patch, Univers (LIDODERM) 05-24 } Topical, ity of 5 % (700 23:45: 16:50 Administer [place] mg/patch) 00 :54 over 12 Medical patch 2 Hours, Branch Patch DAILY, First dose on [facility] 05/24/22 at 1845, Until Discontinu ed, Routine HYDROcodone 2021- No 1{tbl} 1 tablet, Univers -acetaminop 05-24 Oral, ity of hen (NORCO) 23:43: 05:49 Q4HPRN, [place] 10-325 mg 24 :53 Starting Medica l tablet 1 on [facility] Branch tablet 05/24/22 at 1843, Until Thu05/27/22 at 0049, Routine, Pain (scale 4-6), Pain (scale 7-10) heparin 2021-0 Yes 5000U 5,000 Univers (porcine) 05-24 Units, ity of injection 13:00: Subcutaneo [place] 5,000 Units 00 us, Q12H, Med ical First dose Branch on [facility] 05/24/22 at 0800, Until Discontinu ed, Routine ondansetron Yes 4mg 4 mg, Slow Univers (ZOFRAN 05-24 IV Push, ity of (PF)) 10:55: Q6HPRN, [place] injection 4 26 Starting Medi birdie mg on [facility] Branch 05/24/22 at 0555, Until Discontinu ed, Routine, Nausea and Vomiting (N/V) acetaminoph Yes 650mg 650 mg, Un mel en 05-24 Oral, ity of (TYLENOL) 10:55: Q6HPRN, [place] tablet 650 21 Starting Medic al mg on [facility] Branch 05/24/22 at 0555, Until Discontinu ed, Routine, Pain (scale 1-3) QUEtiapine 2021- No 25mg 25 mg, Univ ers (SEROQUEL) 05-24 Oral, ity of tablet 25 10:54: 23:07 QHSPRN, [place] mg 34 :00 Starting Medical on [facility] Branch 05/24/22 at 0554, Until 05/26/22 at 1807, Routine, agitation/ insomnia lidocaine 2021- No 1{patch 1 Patch, Univers (LIDODERM) 05-24 } Topical, ity of 5 % (700 08:45: 20:45 Administer [place] mg/patch) 00 :00 over 12 Medical patch 1 Hours, Branch Patch ONCE, 1 dose, On [facility] 05/24/22 at 0345, Routine enoxaparin 2021-0 2021- No 1mg/kg 80 mg Uni vers (LOVENOX) 05-24 (rounded ity o f injection 08:15: 07:51 [place] 77.1 [place] 80 mg 00 :00 mg = 1 Medical mg/kg Branch ?77.1 kg), Subcutaneo us, ONCE, 1 dose, On 05/24/22 at 0315, Routine aspirin 2021- No 324mg 324 mg, Unive rs chewable 05-24 Oral, ONCE ity of tablet 324 08:15: 07:40 NOW, 1 [place] mg 00 :00 dose, On Medical 05/24/22 Branch at 0315, ADAMA OLANZapine 2021- No 2.5mg 2.5 mg, Un mel (ZyPREXA) 05-24 Oral, ONCE ity of tablet 2.5 08:15: 07:36 NOW, 1 [place] mg 00 :00 dose, On Medical 05/24/22 Branch at 0315, Routine iopamidol 2021- No [id number] 100mL 100 mL, Univers (ISOVUE 05-24 Intravenou [...] Branc h tablet at 0300, Routine ketorolac 2021- No 15mg 15 mg, Unive rs (TORADOL) 05-24 Slow IV ity of injection 07:45: 07:49 Push, [place] 15 mg 00 :00 ONCE, 1 Medical dose, On Branch 05/24/22 at 0245, Routine FENTanyl PF 2021- No 50ug 50 mcg, Un mel (SUBLIMAZE 05-24 Slow IV ity o f (PF)) 06:46: 23:44 Push, [place] injection 51 :55 Q30MIN Medical 50 mcg PRN, 3 Branch doses, Starting on 05/24/22 at 0146, Until 05/24/22 at 1844, ADAMA, Pain (scale 7-10) NaCl 0.9% 2021- No 500mL at 999 Univ ers (NS) bolus 05-2409 mL/hr, 500 it y of infusion 04:15: 06:06 mL, IV [place] 500 mL 00 :00 Infusion, Medical ONCE, 1 Branch dose, On Thu05/23/22 at 2315, STAT FENTanyl PF 2021- No 50ug 50 mcg, Un mel (SUBLIMAZE 05-24 0709 Slow IV ity o f (PF)) 04:04: 06:06 Push, [place] injection 41 :00 Q30MIN Medical 50 mcg PRN, 3 Branch doses, Starting on Thu05/23/22 at 2304, Until Discontinu ed, ADAMA, Pain (scale 7-10) atorvastati Yes 40 mg = 1 M emoria n 40 mg 4-25 tab, PO, l oral tablet 18:19: Bedtime, # [place] 00 30 tab, 0 Refill(s), Pharmacy: [facility], 170.18, cm, 03/05/22 6:53:00 CDT, Height, 77.3, kg, 03/05/22 6:53:00 CDT, Weight lidocaine Yes 1 patch, Manjit greg topical 4-25 TOP, l patch (5% 18:18: Daily, # Herm sana film) 00 10 patch, 0 Refill(s), Pharmacy: [facility] 482, 170.18, cm, 03/05/22 6:53:00 CDT, Height, 77.3, kg, 03/05/22 6:53:00 CDT, Weight methocarbam Yes 500 mg = 1 Memoria ol 500 mg 4-25 tab, PO, l oral tablet 18:17: TID, X 7 [place] 00 day, # 21 tab, 0 Refill(s), Pharmacy: [facility] 482, 170.18, cm, 03/05/22 6:53:00 CDT, Height, 77.3, kg, 03/05/22 6:53:00 CDT, Weight Metoprolol 0 Yes 25 mg = 1 Me moria Succinate 4-25 tab, PO, l ER 25 mg 18:17: Daily, # [place] nn oral 00 30 tab, 0 tablet, Refill(s), extended Pharmacy: [facility] 482, 170.18, cm, 03/05/22 6:53:00 CDT, Height, 77.3, kg, 03/05/22 6:53:00 CDT, Weight empaglifloz 0 Yes 10 mg = 1 M emoria in 10 mg 4-25 tab, PO, l oral tablet 18:16: Daily, # [place] 00 30 tab, 0 Refill(s), Pharmacy: [facility] 482, 170.18, cm, 03/05/22 6:53:00 CDT, Height, 77.3, kg, 03/05/22 6:53:00 CDT, Weight gabapentin 0 Yes 100 mg = 1 M emoria 100 mg oral 4-25 cap, PO, l capsule 18:16: Q8H, # 30 [place] nn 00 cap, 0 Refill(s), Pharmacy: [facility] 2, 170.18, cm, 03/05/22 6:53:00 CDT, Height, 77.3, kg, 03/05/22 6:53:00 CDT, Weight losartan 25 0 Yes 25 mg = 1 M emoria mg oral 4-25 tab, PO, l tablet 18:16: Daily, # [place] 00 30 tab, 0 Refill(s), Pharmacy: [facility] 482, 170.18, cm, 03/05/22 6:53:00 CDT, Height, 77.3, kg, 03/05/22 6:53:00 CDT, Weight donepezil 5 0 Yes 5 mg = 1 Me moria mg oral 4-25 tab, PO, l tablet 18:15: Bedtime, # [place] nn 00 30 tab, 0 Refill(s), Pharmacy: [facility] 482, 170.18, cm, 03/05/22 6:53:00 CDT, Height, 77.3, kg, 03/05/22 6:53:00 CDT, Weight aspirin 81 Yes 81 mg = 1 Me moria mg tablet, 4-25 tab, PO, l enteric 18:15: Daily, # [place] coated 00 30 tab, 0 Refill(s), Pharmacy: [facility] 482, 170.18, cm, 03/05/22 6:53:00 CDT, Height, 77.3, kg, 03/05/22 6:53:00 CDT, Weight MiraLax No Notes: Memoria 4-24 Dissolve l 18:08: in 8 oz of [place] 00 water or juice. (Same as: Miralax) senna 8.6 No Notes: Memori a mg oral 4-24 (Same as: l tablet 18:08: Senokot) Metamucil No Notes: Memori a 4-24 (Same as: l 18:08: Metamucil) Mix in 8 oz liquid with meal. tramadol No Notes: Not Mem oria 4-24 to exceed l 15:13: 400mg/day. [place] 00 (Same As: Ultram) donepezil No Notes: Memori a 4-24 (Same as: l 02:00: Aricept) Metoprolol No Notes: Memor ia Succinate 4-23 (Same as: l ER 25 mg 17:02: Toprol XL) Her ricci oral 00 Do Not tablet, Crush extended release Januvia No 100 mg, 1 Memor ia 4-23 tab, l 14:00: Route: PO, Drug form: TAB, Daily, Dosing Weight 77.3, kg, Start date: 03/08/22 9:00:00 CDT, Duration: 30 day, Stop date: 04/06/22 9:00:00 CDT MiraLax No Notes: Memoria 4-23 Dissolve l 13:51: in 8 oz of [place] water or juice. (Same as: Miralax) senna 8.6 No Notes: Memori a mg oral 4-23 (Same as: l tablet 13:51: Senokot) tramadol No Notes: 25 Manjit greg 4-23 mg = 1/2 x l 05:39: 50 mg TAB [place] 00 Not to exceed 400mg/day. (Same As: Ultram) MiraLax No Notes: Memoria 4-22 Dissolve l 23:54: in 8 oz of [place] 00 water or juice. (Same as: Miralax) gabapentin No 60 Memoria 300 mg oral 4-22 ml/min), l capsule 21:00: Start [place] date: 03/07/22 16:00:00 CDT, Duration: 30 day, Stop date: 04/06/22 8:00:00 CDT acetaminoph No Notes: Do M emoria en-codeine 4-22 not exceed l #3 17:00: 4gm/day of [place] 00 acetaminop hen. (Same as: Tylenol with Codeine # 3) Plavix 75 No 75 mg = 1 Mem oria mg oral 4-22 tab, PO, l tablet 14:31: Daily, 0 [place] 00 Refill(s) isosorbide No 120 mg = 1 M emoria mononitrate 4-22 tab, PO, l 120 mg oral 14:31: QAM, 0 Herm sana tablet, 00 Refill(s) extended release atorvastati No 40 mg = 1 M emoria n 40 mg 4-22 tab, PO, l oral tablet 14:31: Daily, 0 [place] 00 Refill(s) donepezil 5 No 5 mg = 1 Me moria mg oral 4-22 tab, PO, l tablet 14:31: Bedtime, 0 [place] nn 00 Refill(s) gabapentin No Notes: Memor ia 100 mg oral 4-22 (Same as: l capsule 14:30: Neurontin) Herm sana 00 Lasix 20 mg No 20 mg = 1 M emoria oral tablet 4-22 tab, PO, l 14:30: Daily, 0 [place] 00 Refill(s) Januvia 100 No 100 mg = 1 Memoria mg oral 4-22 tab, PO, l tablet 14:30: Daily, 0 [place] 00 Refill(s) Robaxin No Notes: Memoria 03-07 (Same l 14:00: as:Robaxin ) enoxaparin No Notes: Memor ia 03-07 (Same as: l 14:00: Lovenox) remove No Notes: Memoria patch 03-07 Remove l 02:00: patch 12 00 hours after applicatio n each day. oxyCODONE No Notes: Memori a immediate 03-07 (Same as: l release 01:21: Roxicodone ) Tylenol No Notes: Do Memor ia 03-06 not exceed l 18:49: 4 gm/day. [place] (Same as: Tylenol) Robaxin No Notes: Memoria 03-06 (Same l 15:57: as:Robaxin ) losartan No Notes: Memoria 03-06 (Same as: l 14:00: Cozaar) empaglifloz No Notes: Manjit greg in 03-06 (Same as: l 14:00: Jardiance) lidocaine No Notes: Memori a topical 03-06 Apply only l patch (5% 12:44: once for Herm ) 00 up to 12 hours in a 24-hour period (12 hours on and 12 hours off). (Same as: Aspercreme Lidocaine Patch) "Remove old patch before applicatio n of new patch" atorvastati No Notes: Manjit greg n 03-06 (Same as: l 02:00: Lipitor) adenosine No Notes: For Me moria 03-05 diagnostic l 20:11: use only. (Same as: Adenoscan) MEDICATION WASTE Product Size: 60 mg Product Wasted: ___ mg Dextrose No 12.5 gm, Memor ia 50% Syringe 03-05 25 mL, l (D50W) 16:31: Route: IVP, Drug Form: INJ, Dosing Weight 77.3, kg, PRN, PRN Blood Glucose Results, Start date: 03/05/22 11:31:00 CDT, Duration: 30 day, Stop date: 04/04/22 11:30:00 CDT, 0 glucagon 2021- No 1 mg, Memoria 4-20 Route: IM, l 16:31: Drug form: [place] 00 PDR/INJ, PRN, Dosing Weight 77.3, kg, PRN Blood Glucose Results, Start date: 03/05/22 11:31:00 CDT, Duration: 30 day, Stop date: 04/04/22 11:30:00 CDT, 0 insulin No Notes: Memoria lispro 4-20 (Same as: l 16:31: Humalog) Roll in palms of hands gently; Do not shake vigorously . WASTE: F/P - Black; E - Municipal Trash Bin Stable for 28 days at room temperatur e. Expires in days from ____Date [place] 5/325 No Notes: Manjit greg oral tablet 4-20 (Same as: l 16:20: [place] 00 325/5) Do not exceed 4gm/day of acetaminop hen. aspirin No Notes: Do Memor ia 4-20 not crush l 14:54: or chew. (Same As: Ecotrin) Omnipaque No 80 mL, Memori a 350 mg/mL 4-20 Route: l 12:10: IVP, Drug Form: SOLN, Dosing Weight 77.3, kg, ONCALL, STAT, Start date: 03/05/22 7:10:00 CDT, Duration: 1 doses or times, Weight = 75 - 94kg -- "To be infused by Radiology Staff ONLY" Dextrose No 12.5 gm, Memor ia 50% Syringe 4-20 25 mL, l (D50W) 11:36: Route: IVP, Drug Form: INJ, Dosing Weight 81.818, kg, PRN, PRN Blood Glucose Results, Start date: 03/05/22 6:36:00 CDT, Duration: 30 day, Stop date: 04/04/22 6:35:00 CDT, 0 glucagon No 1 mg, Memoria 4-20 Route: IM, l 11:36: Drug form: PDR/INJ, PRN, Dosing Weight 81.818, kg, PRN Blood Glucose Results, Start date: 03/05/22 6:36:00 CDT, Duration: 30 day, Stop date: 04/04/22 6:35:00 CDT, 0 senna No Notes: Memoria 4-20 (Same as: l 11:36: Senokot) polyethylen No Notes: Manjit greg e glycol 4-20 Dissolve l 3350 11:36: in 8 oz of water or juice. (Same as: Miralax) bisacodyl No Notes: Memori a 4-20 (Same As: l 11:36: Dulcolax, Bisco-Lax) ondansetron No Notes: Manjit greg 4-20 (Same as: l 11:36: Zofran) MEDICATION WASTE Product Size: 4 mg Product Wasted: ___ mg acetaminoph No Notes: Do M emoria en -20 not exceed l 11:36: 4 gm/day. (Same as: Tylenol) FENTanyl PF 25ug 25 mcg, Un mel (SUBLIMAZE 03-01 Intramuscu it y of (PF)) 16:45: 16:23 lar, ONCE, [place] injection 00 :00 1 dose, On Medi birdie 25 mcg [facility] 03/01/22 at 1145, Routine cyclobenzap No 10mg 10 mg, Uni vers rine 03-01 Oral, ity of (FLEXERIL) 14:00: 12:59 ONCE, 1 [place] as tablet 10 00 :00 dose, On Medica l mg [facility] 03/01/22 at 0900, Routine HYDROcodone 2021- No 1{tbl} 1 tablet, Univers -acetaminop 03-01 Oral, ity of hen (NORCO 14:00: 12:59 ONCE, 1 [place] as 5) 5-325 mg 00 :00 dose, On Medi birdie tablet 1 Sat Branch tablet 03/01/22 at 0900, ADAMA dexamethaso 2021- No 10mg 10 mg, Uni vers ne sod phos 4-16 04-16 Oral, ity of PF 14:00: 13:00 ONCE, 1 [place] injection 00 :00 dose, On Medica l 10 mg Sat Branch 03/01/22 at 0900, 1 mL cyclobenzap 2021- Yes [id number] 10mg Take 1 Univers rine 10 mg 4-16 tablet by ity of tablet 00:00: mouth 3 [place] 00 (three) Medical times Branch daily as needed for Muscle Spasms. cyclobenzap 2021-0 Yes [id number] 10mg Take 1 Univers rine 10 mg 4-16 tablet by ity of tablet 00:00: mouth 3 [place] 00 (three) Medical times Branch daily as needed for Muscle Spasms. cyclobenzap 2021-2021- No [id number] 10mg Take 1 Univers rine 10 mg -16 07-15 tablet by ity of tablet 00:00: 00:00 mouth 3 [place] 00 :00 (three) Medical times Branch daily as needed for Muscle Spasms. furosemide Yes 1{tbl} QD Take 1 Met hodi (Lasix) 40 2-[address] mg tablet 17:49: mouth [facility] 02 daily. l traZODone Yes 50mg Take 50 mg Me thodi (DESYREL) 2-[address] 50 MG 17:49: Hospita tablet 02 l clopidogreL 2021- No 75mg QD Take 1 Met hodi (PLAVIX) 75 2-10 -13 tablet (75 s t mg tablet 00:00: 05:59 mg total) [facility] 00 :00 by mouth l daily for 30 days. isosorbide 2021-2021- No 120mg QD Take 1 Met hodi mononitrate 2-10 -[address] (IMDUR) 120 00:00: 05:59 (120 mg Ho [facility]ita MG 24 hr 00 :00 total) by l tablet mouth daily for 30 days. isosorbide 2021-2021- No 60mg QD Take 60 mg Methodi mononitrate 12-25- by mouth st (IMDUR) 60 17:50: 00:00 daily. Hosp lily MG 24 hr 01 :00 l tablet multivitami Yes 1{tbl} QD Take 1 Me thodi n 2-[address] (THERAGRAN) 17:49: mouth Hospi ta tablet 58 nightly. l traMADol Yes 50mg Take 50 mg [facility] (ULTRAM) 50 2-[address] mg tablet 17:49: Hospita 58 l aspirin Yes 81mg QD Take 81 mg Meth mercedes (ECOTRIN) 2-[address] 81 MG 17:49: daily. [facility]ospita enteric 58 l coated tablet atorvastati Yes 40mg QD Take 40 mg [facility] n (LIPITOR) 2-[address] 40 MG 17:49: nightly. Hospita tablet 58 l insulin Yes 30U QD Inject 30 Metho di GLARGINE 2-[address] (LANTUS) 17:49: under the Hosp [facility]ily 100 unit/mL 58 skin l injection nightly. (vial) potassium Yes 10meq QD Take 10 Meth mercedes chloride 2-[address] (K-DUR) 10 17:49: mouth Hospit a MEQ CR 58 daily. l tablet nitroglycer 2021- No .4mg Place 1 Me thodi in 12-25 03-[address] (NITROSTAT) 00:00: 05:59 (0.4 mg [facility] 0.4 MG SL 00 :00 total) l tablet under the tongue every 5 (five) minutes as needed for chest pain for up to 30 days. acetaminoph Yes 1{tbl} Q.5D Take 1 Me thodi en-codeine 1-[address] (TYLENOL 00:00: mouth 2 [facility] a WITH 00 (two) l CODEINE #3) times a 300-30 mg day as per tablet needed. aspirin 81 2020-11- No [id number] 81mg Take 1 [facility] mg chewable 01-04 tablet by it y of tablet 00:00: 05:59 mouth [place] 00 :00 daily for Medical 30 days. Branch clopidogreL 2020-11- No [id number] 75mg Take 1 [facility] 75 mg 01-04 tablet by ity of tablet 00:00: 05:59 mouth [place] 00 :00 daily for Medical 30 days. Branch furosemide 2020-11- No [id number] 20mg Take 1 [facility] 20 mg 2-12-04 tablet by ity of tablet 00:00: 05:59 mouth [place] 00 :00 daily for Medical 30 days. Branch aspirin 81 2020-11- No [id number] 81mg Take 1 [facility] mg chewable -12-04 tablet by it y of tablet 00:00: 05:59 mouth [place] 00 :00 daily for Medical 30 days. Branch clopidogreL 2020-11- No [id number] 75mg Take 1 [facility] 75 mg 2-12-04 tablet by ity of tablet 00:00: 05:59 mouth [place] 00 :00 daily for Medical 30 days. Branch furosemide 2020-11- No [id number] 20mg Take 1 [facility] 20 mg 01-04 tablet by ity of tablet 00:00: 05:59 mouth [place] 00 :00 daily for Medical 30 days. Branch aspirin 81 2020-11- No [id number] 81mg Take 1 [facility] mg chewable 01-04 tablet by it y of tablet 00:00: 05:59 mouth [place] 00 :00 daily for Medical 30 days. Branch clopidogreL 2020-11- No [id number] 75mg Take 1 [facility] 75 mg 01-04 tablet by ity of tablet 00:00: 05:59 mouth [place] 00 :00 daily for Medical 30 days. Branch furosemide 2020-11- No [id number] 20mg Take 1 [facility] 20 mg 01-04 [...] Until Discontinu ed, Routine QUEtiapine 2020-11 Yes [id number] 25mg Take 1 [facility] 25 mg 2-18 tablet by ity of tablet 00:00: mouth at [place] 00 bedtime as Medical needed Branch (agitation /insomnia) . QUEtiapine 2020-11 Yes [id number] 25mg Take 1 [facility] 25 mg 2-18 tablet by ity of tablet 00:00: mouth at [place] 00 bedtime as Medical needed Branch (agitation /insomnia) . QUEtiapine 2020-11 Yes [id number] 25mg Take 1 [facility] 25 mg 2-18 tablet by ity of tablet 00:00: mouth at [place] 00 bedtime as Medical needed Branch (agitation /insomnia) . QUEtiapine 2020-11 Yes [id number] 25mg Take 1 [facility] 25 mg 2-18 tablet by ity of tablet 00:00: mouth at [place] 00 bedtime as Medical needed Branch (agitation /insomnia) . QUEtiapine 2020-11 Yes [id number] 25mg Take 1 [facility] 25 mg 2-18 tablet by ity of tablet 00:00: mouth at [place] 00 bedtime as Medical needed Branch (agitation /insomnia) . QUEtiapine 2020-11 Yes [id number] 25mg Take 1 [facility] 25 mg 2-18 tablet by ity of tablet 00:00: mouth at [place] 00 bedtime as Medical needed Branch (agitation /insomnia) . QUEtiapine 2020-11 Yes [id number] 25mg Take 1 [facility] 25 mg 2-18 tablet by ity of tablet 00:00: mouth at [place] 00 bedtime as Medical needed Branch (agitation /insomnia) . metoprolol 2020-11 Yes 25mg Q.5D Take 25 mg M ethodi succinate 2-[address] XL 00:00: (two) [facility]osp[facility] (TOPROL-XL) 00 times a l 25 mg 24 hr day. tablet QUEtiapine 2020-11- No [id number] 25mg Take 1 [facility] 25 mg 2-18 - tablet by ity of tablet 00:00: 00:00 mouth at [place] 00 :00 bedtime as Medical needed Branch (agitation /insomnia) . isosorbide 2020-11- No [id number] 60mg Take 1 [facility] mononitrate 2-18 -18 tablet by it y of 60 mg 24 hr 00:00: 05:59 mouth 2 [place] tablet 00 :00 (two) Medical times Branch daily for 30 days. metoprolol 2020-11- No [id number] 37.5mg Take 1.5 [facility] succinate 2-18 -18 tablets by ity of XL 25 mg 24 00:00: 05:59 mouth 2 [place] hr tablet 00 :00 (two) Medical times Branch daily for 30 days. isosorbide 2020-11- No [id number] 60mg Take 1 [facility] mononitrate 2-18 -18 tablet by it y of 60 mg 24 hr 00:00: 05:59 mouth 2 [place] tablet 00 :00 (two) Medical times Branch daily for 30 days. metoprolol 2020-11- No [id number] 37.5mg Take 1.5 [facility] succinate 2-18 -18 tablets by ity of XL 25 mg 24 00:00: 05:59 mouth 2 [place] hr tablet 00 :00 (two) Medical times Branch daily for 30 days. isosorbide 2020-11- No [id number] 60mg Take 1 [facility] mononitrate 2-18 -18 tablet by it y of 60 mg 24 hr 00:00: 05:59 mouth 2 [place] tablet 00 :00 (two) Medical times Branch daily for 30 days. metoprolol 2020-11- No [id number] 37.5mg Take 1.5 [facility] succinate 18 -18 tablets by ity of XL 25 [...] mg 03:00: First dose [place] 00 on [facility] 10/31/21 Branch at 2100, Until Discontinu ed, Routine atorvastati 2020-11 Yes 40mg 40 mg, Univ ers n (LIPITOR) 2-17 Oral, QHS, it y of tablet 40 03:00: First dose [place] mg 00 on [facility] 10/31/21 Branch at 2100, Until Discontinu ed, Routine clopidogreL 2020-11 Yes 75mg 75 mg, Univ ers (PLAVIX) 2-16 Oral, ity of tablet 75 23:30: DAILY, [place] mg 00 First dose Medical on [facility] Branch 10/31/21 at 1730, Until Discontinu ed, Routine sulfur 2020-11- No [id number] 5mL 5 mL, Unive rs hexafluorid 01-01 Intravenou i ty of e microsphr 17:00: 17:00 s, ONCE, 1 [place] (LUMASON) 00 :00 dose, On Medica l injection 5 [facility] Branch mL 10/31/21 at 1100, Routine
juice bar team member approving Restricted medication : HOAMEGGAN isosorbide 2020-11- No 120mg 120 mg, Un mel mononitrate 01-01 Oral, ity of (IMDUR) 24 15:00: 14:16 DAILY, [place] hr tablet 00 :38 First dose Medi birdie 120 mg on [facility] Branch 10/31/21 at 0900, Until Discontinu ed, Routine Sliding 2020-11 [facility] , AC+HS, ity of Insulin-Reg 13:30: First dose [place] ular + Fsbg 00 on [facility] Medica l Testing 10/31/21 Branch at 0730, Until Discontinu ed, Routine enoxaparin 2020-11- No 1mg/kg 80 mg Uni vers (LOVENOX) 01-0118 (rounded ity o f injection 09:00: 14:17 from 78 mg [place] 80 mg 00 :35 = 1 mg/kg Medical ?78 kg), Branch Subcloma [facility], Q24H, First dose on [facility] 10/31/21 at 0300, Until Discontinu ed, Routine aspirin 2020-11- No 325mg 325 mg, Unive rs tablet 325 01-01 Oral, ity of mg 08:45: 08:15 ONCE, 1 [place] 00 :00 dose, On Medical [facility] Branch 10/31/21 at 0245, Routine glucagon 2020-11 Yes 1mg 1 mg, Univers (GLUCAGEN -16 Intramuscu ity of DIAGNOSTIC 08:16: [place], PRN, [place] KIT) 15 Starting Medical injection 1 on [facility] Branch mg 10/31/21 at 0216, Until Discontinu ed, ADAMA, Blood Glucose < or = 70 mg/dL and patient is unable to swallow or has mental changes. dextrose 50 2020-11 Yes 25mL 25 mL, Univ ers % in water 2-16 Slow IV ity of (D50W) 08:16: Push, PRN, [place] injection 14 Starting Medica l 25 mL on [facility] Branch 10/31/21 at 0216, Until Discontinu ed, ADAMA, Blood Glucose < or = 70 mg/dL and patient is unable to swallow or has mental status changes. morpHINE 2020-11 No 2mg 2 mg, Slow Un mel injection 2 2-16 12-17 IV Push, ity of mg 07:36: 05:31 Q4HPRN, [place] 09 :07 Starting Medical on Madhavi [...] 2-16 IV Push, ity of (PF)) 05:32: [place], [place] injection 4 10 Starting Medi birdie mg on Wed Branch 10/30/21 at 2332, Until Discontinu ed, Routine, Nausea and Vomiting (N/V) acetaminoph 2020-11 Yes 650mg 650 mg, Un mel en 2-16 Oral, ity of (TYLENOL) 05:31: Q6HPRN, [place] tablet 650 56 Starting Medic al mg on Wed Branch 10/30/21 at 2331, Until Discontinu ed, Routine, Pain (scale 1-3) acetaminoph 2020-11 Yes [id number] 1{tbl} 1 tablet, Univers en-codeine 2-16 Oral, ity of (TYLENOL 05:29: Q6HPRN, [place] #3) 300-30 29 Starting Medic al mg tablet 1 on Wed Branch tablet 10/30/21 at 2329, Until Discontinu ed, Routine, Pain (scale 4-6), Pain (scale 7-10) sodium 2020-11 Yes 5mL 5 mL, Univers chloride 2-16 Intravenou ity o f (NS) 01:21: s, PRN, [place] injection 5 02 Starting Medi birdie mL on Thu Branch 10/30/21 at 1921, Until Discontinu ed, Routine, IV line flushing Januvia 50 2020-11 Yes 50mg QD Take 50 mg M ethodi mg tablet 2-[address] 00:00: daily. Hospita 00 l morpHINE 2020- No 4mg 4 mg, Slow [...] 04/25/21 at Branch 1400, ADAMA cyclobenzap Yes [id number] 5mg Take 1 Univers rine 5 mg 6-10 tablet by ity o f tablet 00:00: mouth 3 [place] 00 (three) Medical times Branch daily. cyclobenzap Yes [id number] 5mg Take 1 Univers rine 5 mg 6-10 tablet by ity o f tablet 00:00: mouth 3 [place] 00 (three) Medical times Branch daily. cyclobenzap Yes [id number] 5mg Take 1 Univers rine 5 mg 6-10 tablet by ity o f tablet 00:00: mouth 3 [place] 00 (three) Medical times Branch daily. acetaminoph Yes [id number] 1{tbl} Take 1 Un mel en-codeine 6-10 tablet by ity of 300-30 mg 00:00: mouth [place] tablet 00 every 6 Medical (six) Branch hours as needed for Pain (scale 4-6). Indication s: acute pain, left sided low back pain cyclobenzap Yes [id number] 5mg Take 1 Univers rine 5 mg [...] left sided low back pain cyclobenzap Yes [id number] 5mg Take 1 [facility] rine 5 mg 6-10 tablet by ity o f tablet 00:00: mouth 3 [place] 00 (three) Medical times Branch daily. cyclobenzap 2021- No [id number] 5mg Take 1 Univers rine 5 mg [...] pain, left sided low back pain acetaminoph 0 Yes [id number] 1{tbl} Take 1 [...] [place] mg 00 First dose Medical on [facility] 03/24/20 at 0900, Until Discontinu ed, Routine MULTIVITAMI 2020-0 2020- No Take by Un mel N ORAL 03-24 05-08 mouth. ity of 03:38: 00:00 [place] 54 :00 [facility] Branch MULTIVITAMI 2020-0 Yes Take by Uni vers N ORAL 5- mouth. ity of 02:01: [place] 35 [facility] Branch atorvastati 2020-0 Yes 40mg 40 mg, [...] Discontinu ed, Routine aspirin 81 2020-0 Yes [id number] 81mg Take 1 U nivers mg chewable 5-09 tablet by ity of tablet 00:00: mouth [place] 00 daily with Medical breakfast. Branch furosemide 2020-0 Yes [id number] 20mg Take 1 U nivers 20 mg 5-09 tablet by ity of tablet 00:00: mouth [place] 00 daily. Medical Branch aspirin 81 2020-0 Yes [id number] 81mg Take 1 U nivers mg chewable 5-09 tablet by ity of tablet 00:00: mouth [place] 00 daily with Medical breakfast. Branch furosemide 2020-0 Yes [id number] 20mg Take 1 U nivers 20 mg 5-09 tablet by ity of tablet 00:00: mouth [place] 00 daily. Medical Branch aspirin 81 2020-0 Yes [id number] 81mg Take 1 U nivers mg chewable 5-09 tablet by ity of tablet 00:00: mouth [place] 00 daily with Medical breakfast. Branch furosemide 2020-0 Yes [id number] 20mg Take 1 U nivers 20 mg 5-09 tablet by ity of tablet 00:00: mouth [place] 00 daily. Medical Branch aspirin 81 2020-0 Yes [id number] 81mg Take 1 U nivers mg chewable 5-09 tablet by ity of tablet 00:00: mouth [place] 00 daily with Medical breakfast. Branch furosemide 2020-0 Yes [id number] 20mg Take 1 U nivers 20 mg 5-09 tablet by ity of tablet 00:00: mouth [place] 00 daily. Medical Branch aspirin 81 2020-0 Yes [id number] 81mg Take 1 U nivers mg chewable 5-09 tablet by ity of tablet 00:00: mouth [place] 00 daily with Medical breakfast. Branch furosemide 2020-0 Yes [id number] 20mg Take 1 U nivers 20 mg 5-09 tablet by ity of tablet 00:00: mouth [place] 00 daily. Medical Branch aspirin 81 2020-0 Yes [id number] 81mg Take 1 U nivers mg chewable 5-09 tablet by ity of tablet 00:00: mouth [place] 00 daily with Medical breakfast. Branch furosemide 2020-0 Yes [id number] 20mg Take 1 U nivers 20 mg 5-09 tablet by ity of tablet 00:00: mouth [place] 00 daily. Medical Branch aspirin 81 2020-0 Yes [id number] 81mg Take 1 U nivers mg chewable 5-09 tablet by ity of tablet 00:00: mouth [place] 00 daily with Medical breakfast. Branch furosemide 2020-0 Yes [id number] 20mg Take 1 U nivers 20 mg 5-09 tablet by ity of tablet 00:00: mouth [place] 00 daily. Medical Branch aspirin 81 2020-0 Yes [id number] 81mg Take 1 U nivers mg chewable 5-09 tablet by ity of tablet 00:00: mouth [place] 00 daily with Medical breakfast. Branch furosemide 2020-0 Yes [id number] 20mg Take 1 U nivers 20 mg 5-09 tablet by ity of tablet 00:00: mouth [place] 00 daily. Medical Branch aspirin 81 2020-0 Yes [id number] 81mg Take 1 U nivers mg chewable 5-09 tablet by ity of tablet 00:00: mouth [place] 00 daily with Medical breakfast. Branch furosemide 2020-0 Yes [id number] 20mg Take 1 U nivers 20 mg - tablet by ity of tablet 00:00: mouth [place] 00 daily. Medical Branch aspirin 81 2019-0 2020- No [id number] 81mg Take 1 [facility] mg chewable 03-2418 tablet by it y of tablet 00:00: 00:00 mouth [place] 00 :00 daily with Medical breakfast. Branch furosemide 2019-0 2020- No [id number] 20mg Take 1 [facility] 20 mg 03-24 tablet by ity of tablet 00:00: 00:00 mouth [place] 00 :00 daily. Medical Branch isosorbide 2019-0 2020- No [id number] 90mg Take 3 [facility] mononitrate 03-24 05-08 tablets by i ty of 30 mg 24 hr 00:00: 00:00 mouth [place] tablet 00 :00 daily. Medical Branch isosorbide 2019-0 2020- No [id number] 90mg Take 3 [facility] mononitrate - 05-08 tablets by i ty of 30 mg 24 hr 00:00: 00:00 mouth [place] tablet 00 :00 daily. Medical Branch maalox/lido 2020-0 2020- No 5mL 5 mL, [facility] sydni 2 5-08 05-08 Oral, ity of %viscous 20:45: 20:56 ONCE, [place] 1: 00 :00 dose, Fri Medical suspension 03/23/20 at [facility] (COMPOUNDED 1545, ) Routine maalox/lido 2020-0 2020- No 5mL 5 mL, [facility] sydni 2 5-08 05-08 Oral, ity of %viscous 20:45: 20:56 ONCE, [place] 1: 00 :00 dose, Fri Medical suspension 03/23/20 at [facility] (COMPOUNDED 1545, ) Routine acetaminoph [...] Yes 1000ug 1,000 mcg, Un mel B-12 - Oral, ity of (CYANOCOBAL 14:00: DAILY, [place] [...] IV Push, ity of mg 07:59: Q4HPRN, [place] [id number] Starting Medical 03/23/20 Branch at 0259, Until Discontinu ed, Routine, Chest pain morpHINE 2020-0 Yes 2mg 2 mg, Slow Uni vers injection 2 03-23 IV Push, ity of mg 07:59: Q4HPRN, [place] [id number] Starting Medical 03/23/20 Branch at 0259, Until [...] ORAL) Cholecalcif 2020-0 2020- No Take by Un mel ann, 03-23 mouth. ity of Vitamin D3, [...] ORAL) Cholecalcif 2020-0 2020- No Take by Un mel ann, 03-23 mouth. ity of Vitamin D3, 04:01: 00:00 [place] 2,000 unit 03 :00 Medical capsule Branch [...] tablet 650 29 Starting Medic al mg [facility] 03/22/20 Branch at 2150, Until Discontinu ed, [...] Medical tablet 0.4 doses, Branch mg Starting [facility] 03/22/20 at 2137, Until Discontinu ed, ADAMA, Chest pain nitroglycer 2020-0 Yes .4mg 0.4 mg, Uni vers in 03-23 Sublingual ity of (NITROSTAT) 02:38: , Q5MIN [place] as sublingual 00 PRN, 3 Medical tablet 0.4 doses, Branch mg Starting [facility] 03/22/20 at 2137, Until Discontinu ed, ADAMA, Chest pain aspirin [...] 1 [place] mg 00 :00 dose, [facility] 03/22/20 at Branch 2145, ADAMA isosorbide 2020-0 Yes [id number] 90mg Take 1.5 [facility] mononitrate 5-08 tablets by it y of 60 mg 24 hr 00:00: mouth [place] tablet 00 daily. [facility] isosorbide 2020-0 Yes [id number] 90mg Take 1.5 [facility] mononitrate 5-08 tablets by it y of 60 mg 24 hr 00:00: mouth [place] tablet 00 daily. [facility] isosorbide 2020-0 Yes [id number] 90mg Take 1.5 [facility] mononitrate 5-08 tablets by it y of 60 mg 24 hr 00:00: mouth [place] tablet 00 daily. [facility] isosorbide 2020-0 Yes [id number] 90mg Take 1.5 [facility] mononitrate 5-08 tablets by it y of 60 mg 24 hr 00:00: mouth [place] tablet 00 daily. [facility] isosorbide 2020-0 Yes [id number] 90mg Take 1.5 [facility] mononitrate 5-08 tablets by it y of 60 mg 24 hr 00:00: mouth [place] tablet 00 daily. [facility] isosorbide 2020-0 Yes [id number] 90mg Take 1.5 [facility] mononitrate 5-08 tablets by it y of 60 mg 24 hr 00:00: mouth [place] tablet 00 daily. [facility] isosorbide 2020-0 Yes [id number] 90mg Take 1.5 [facility] mononitrate 5-08 tablets by it y of 60 mg 24 hr 00:00: mouth [place] tablet 00 daily. [facility] isosorbide 2020-0 Yes [id number] 90mg Take 1.5 [facility] mononitrate 5-08 tablets by it y of 60 mg 24 hr 00:00: mouth [place] tablet 00 daily. [facility] isosorbide 2020-0 Yes [id number] 90mg Take 1.5 [facility] mononitrate 5-08 tablets by it y of 60 mg 24 hr 00:00: mouth [place] tablet 00 daily. [facility] isosorbide 2020-0 2020- No [id number] 90mg Take 1.5 [facility] mononitrate 03-23 12-18 tablets by i ty of 60 mg 24 hr 00:00: 00:00 mouth [place] tablet 00 :00 daily. Medical Branch acetaminoph 2019- 2020- No [id number] 975mg Take 3 Univers en 325 mg 5-08 05-19 tablets by ity of tablet 00:00: 04:59 mouth [place] 00 :00 every 8 Medical (eight) Branch hours for 10 days. acetaminoph 2020- No [id number] 975mg Take 3 [facility] en 325 mg 5-08 05-19 tablets by ity of tablet 00:00: 04:59 mouth [place] 00 :00 every 8 Medical (eight) Branch hours for 10 days. acetaminoph 2020- No [id number] 975mg Take 3 [facility] en 325 mg 5- 05-19 tablets by ity of tablet 00:00: 04:59 mouth [place] 00 :00 every 8 Medical (eight) Branch hours for 10 days. acetaminoph 2019- No [id number] 975mg Take 3 [facility] en 325 mg 5- 05-19 tablets by ity of tablet 00:00: 04:59 mouth [place] 00 :00 every 8 Medical (eight) Branch hours for 10 days. acetaminoph 2020- No [id number] 975mg Take 3 [facility] en 325 mg 5-08 05-19 tablets by ity of tablet 00:00: 04:59 mouth [place] 00 :00 every 8 Medical (eight) Branch hours for 10 days. lidocaine 5 2019- No [id number] 1{patch Apply 1 [facility] % (700 5-08 05-09 } Patch to ity of mg/patch) 00:00: 04:59 area(s) [place] patch 00 :00 once now Medical for 1 Branch dose. lidocaine 5 2020- No [id number] 1{patch Apply 1 [facility] % (700 5-08 05-09 } Patch to ity of mg/patch) 00:00: 04:59 area(s) [place] patch 00 :00 once now Medical for 1 Branch dose. lidocaine 5 2020- No [id number] 1{patch Apply 1 [facility] % (700 5-08 05-08 } Patch to ity of mg/patch) 00:00: 00:00 area(s) [place] patch 00 :00 once now Medical for 1 Branch dose. lidocaine 5 2019- No [id number] 1{patch Apply 1 [facility] % (700 5-08 05-08 } Patch to ity of mg/patch) 00:00: 00:00 area(s) [place] patch 00 :00 once now Medical for 1 Branch dose. donepeziL 2020-0 Yes 5mg QD Take 5 mg Met hodi (Aricept) 5 5-[address] MG tablet 00:00: nightly - Hos [place] 00 one time. l glipiZIDE 2020-0 Yes 5mg 5 mg, Univers (GLUCOTROL) 4-23 Oral, ity of tablet 5 mg 14:00: DAILY, [place] 00 First dose Medical on [facility] 03/08/20 at 0900, Until Discontinu ed, Routine spironolact 2019- 2020- No [id number] 12.5mg Take 0.5 Univers one 25 mg 4-23 05-24 tablets by ity of tablet 00:00: 04:59 mouth [place] 00 :00 daily for Medical 30 days. Branch spironolact 2020- No [id number] 12.5mg Take 0.5 Univers one 25 mg 4-23 05-24 tablets by ity of tablet 00:00: 04:59 mouth [place] 00 :00 daily for Medical 30 days. [place] spironolact 2019- 2020- No [id number] 12.5mg Take 0.5 Univers one 25 mg 4-23 05-24 tablets by ity of tablet 00:00: 04:59 mouth [place] 00 :00 daily for Medical 30 days. [place] spironolact 2019-0 2020- No [id number] 12.5mg Take 0.5 Univers one 25 mg 4-23 05-07 tablets by ity of tablet 00:00: 00:00 mouth [place] 00 :00 daily for Medical 30 days. Branch spironolact 2020- No [id number] 12.5mg Take 0.5 Univers one 25 mg 4-23 05-07 tablets by ity of tablet 00:00: 00:00 mouth [place] 00 :00 daily for Medical 30 days. [place] memantine-d Yes 1{capsu Take 1 U nivers onepezil 4-22 le} capsule by ity o f (NAMZARIC) 23:46: mouth [place] 28-10 mg 10 daily. Medical CSpX Branch folic 2020-0 Yes Take by Univers acid/vit B - mouth. ity of complex and 23:46: [place] C (B 10 Medical COMPLEX-VIT Branch RAZA C-FOLIC ACID ORAL) Cholecalcif 2020-0 Yes Take by Uni vers ann, - mouth. ity of Vitamin D3, 23:46: [place] 2,000 unit 10 Medical capsule Branch MULTIVITAMI 2020-0 Yes Take by Uni vers N ORAL - mouth. ity of 23:46: [...] U nivers onepezil 03-07 le} capsule by carolyn elder f (NAMZARIC) 23:46: mouth [place] 28-10 mg 10 daily. Medical CSpX Branch folic 2020-0 Yes Take by Univers acid/vit B - mouth. ity of complex and 23:46: [place] C (B 10 Medical COMPLEX-VIT Branch RAZA C-FOLIC ACID ORAL) Cholecalcif 2020-0 Yes Take by Uni vers ann, - mouth. ity of Vitamin D3, 23:46: [place] 2,000 unit 10 Medical capsule Branch MULTIVITAMI 2020-0 Yes Take by Uni vers N ORAL - mouth. ity of 23:46: [...] ACID ORAL) Cholecalcif 2020-0 Yes Take by Uni vers ann, - mouth. ity of Vitamin D3, 23:46: [place] 2,000 unit 10 Medical capsule Branch MULTIVITAMI 2020-0 Yes Take by Uni vers N ORAL -22 mouth. ity of 23:46: [place] 10 Medical Branch thiamine 2020-0 Yes 100mg Take 100 Univ ers (VITAMIN 4-22 mg by ity of B-1) 100 mg 23:46: mouth [place] tablet 10 daily. Medical Branch NaCl 0.9% 2020-0 Yes 10mL Inject 10 Uni vers (NS) Soln 4- mL ity of 10 mL with 23:46: [...] Discontinu ed, Routine, Insomnia Insulin 2020-0 Yes [id number] 10U inject 10 [facility] Glargine 4-22 Units ity of 100 unit/mL 00:00: under the [place] (3 mL) 00 skin at Medical injection bedtime. Branch temazepam 2020-0 Yes [id number] 15mg Take 1 Un mel 15 mg 4-22 capsule by ity of capsule 00:00: mouth at [place] 00 bedtime as Medical needed for Branch Insomnia. furosemide 2020-0 Yes [id number] 40mg Take 1 Univers 40 mg 4-22 tablet by ity of tablet 00:00: mouth [place] 00 every Medical morning Branch and evening. Magnesium 2020-0 Yes [id number] 400mg Take 400 Univers Oxide 420 4-22 mg by ity of mg Tab 00:00: mouth [place] 00 daily. Medical Branch potassium 2020-0 Yes [id number] 20meq Take 20 Univers chloride 20 4-22 mEq by ity of mEq packet 00:00: mouth [place] 00 daily. Medical Take with Branch lasix in the morning isosorbide 2020-0 Yes [id number] 15mg Take 0.5 [facility] mononitrate 4-22 tablets by it y of 30 mg 24 hr 00:00: mouth [place] tablet 00 daily. Medical Hold if Branch systolic blood pressure less than 120 Insulin 2020-0 Yes [id number] 10U inject 10 [facility] Glargine 4-22 Units ity of 100 unit/mL 00:00: under the [place] (3 mL) 00 skin at Medical injection bedtime. Branch temazepam 2020-0 Yes [id number] 15mg Take 1 Un mel 15 mg 4-22 capsule by ity of capsule 00:00: mouth at [place] 00 bedtime as Medical needed for Branch Insomnia. furosemide 2020-0 Yes [id number] 40mg Take 1 Univers 40 mg 4-22 tablet by ity of tablet 00:00: mouth [place] 00 every Medical morning Branch and evening. Magnesium 2020-0 Yes [id number] 400mg Take 400 [facility] Oxide 420 4-22 mg by ity of mg Tab 00:00: mouth [place] 00 daily. Medical Branch potassium 2020-0 Yes [id number] 20meq Take 20 [facility] chloride 20 4-22 mEq by ity of mEq packet 00:00: mouth [place] 00 daily. Medical Take with Branch lasix in the morning isosorbide 2020-0 Yes [id number] 15mg Take 0.5 [facility] mononitrate 4-22 tablets by it y of 30 mg 24 hr 00:00: mouth [place] tablet 00 daily. Medical Hold if Branch systolic blood pressure less than 120 Insulin 2020-0 Yes [id number] 10U inject 10 [facility] Glargine 4-22 Units ity of 100 unit/mL 00:00: under the [place] (3 mL) 00 skin at Medical injection bedtime. Branch temazepam 2020-0 Yes [id number] 15mg Take 1 Un mel 15 mg 4-22 capsule by ity of capsule 00:00: mouth at [place] 00 bedtime as Medical needed for Branch Insomnia. furosemide 2020-0 Yes [id number] 40mg Take 1 Univers 40 mg 4-22 tablet by ity of tablet 00:00: mouth [place] 00 every Medical morning Branch and evening. Magnesium 2020-0 Yes [id number] 400mg Take 400 Univers Oxide 420 4-22 mg by ity of mg Tab 00:00: mouth [place] 00 daily. Medical Branch potassium 2020-0 Yes [id number] 20meq Take 20 [facility] chloride 20 4-22 mEq by ity of mEq packet 00:00: mouth [place] 00 daily. Medical Take with Branch lasix in the morning isosorbide 2020-0 Yes [id number] 15mg Take 0.5 [facility] mononitrate 4-22 tablets by it y of 30 mg 24 hr 00:00: mouth [place] tablet 00 daily. Medical Hold if Branch systolic blood pressure less than 120 Insulin 2020-0 Yes [id number] 10U inject 10 [facility] Glargine 4-22 Units ity of 100 unit/mL 00:00: under the [place] (3 mL) 00 skin at Medical injection bedtime. Branch Magnesium 2020-0 Yes [id number] 400mg Take 400 Univers Oxide 420 4-22 mg by ity of mg Tab 00:00: mouth [place] 00 daily. Medical Branch vitamin 2020-0 2020- No [id number] 1000ug Take 1 Univers B-12 1,000 4-22 07-22 tablet by ity of mcg tablet 00:00: 04:59 mouth [place] 00 :00 daily for Medical 90 days. Branch vitamin 2020-0 2020- No [id number] 1000ug Take 1 Univers B-12 1,000 4-22 07-22 tablet by ity of mcg tablet 00:00: 04:59 mouth [place] 00 :00 daily for Medical 90 days. Branch vitamin 2020-0 2020- No [id number] 1000ug Take 1 Univers B-12 1,000 4-22 07-22 tablet by ity of mcg tablet 00:00: 04:59 mouth [place] 00 :00 daily for Medical 90 days. Branch vitamin 2019- 2020- No [id number] 1000ug Take 1 Univers B-12 1,000 4-06 06-22 tablet by ity of mcg tablet 00:00: 04:59 mouth [place] 00 :00 daily for Medical 90 days. Branch glipiZIDE 5 2020- No [id number] 2.5mg Take 0.5 Univers mg tablet 03-07-23 tablets by ity of 00:00: 04:59 mouth 2 [place] 00 :00 (two) Medical times Branch daily before breakfast and dinner for 30 days. metoprolol 2020- No [id number] 25mg Take 1 [facility] succinate -06 04-23 tablet by ity of XL 25 mg 24 00:00: 04:59 mouth 2 [place] hr tablet 00 :00 (two) Medical times Branch daily for 30 days. OLANZapine 2019-2019- No [id number] 2.5mg Take 1 [facility] 2.5 mg -06 04-23 tablet by ity of tablet 00:00: 04:59 mouth at [place] 00 :00 bedtime Medical for 30 Branch days. ranolazine 2019- 2020- No [id number] 1000mg Take 2 [facility] 500 mg 12 -06 04-23 tablets by ity of hr tablet 00:00: 04:59 mouth [place] 00 :00 every 12 Medical (twelve) Branch hours for 30 days. aspirin 81 2019- 2020- No [id number] 81mg Take 1 [facility] mg chewable -06 04-23 tablet by it y of tablet 00:00: 04:59 mouth [place] 00 :00 daily with Medical breakfast Branch for 30 days. atorvastati 2019- 2020- No [id number] 40mg Take 1 [facility] n 40 mg -06 04-23 tablet by ity of tablet 00:00: 04:59 mouth at [place] 00 :00 bedtime Medical for 30 Branch days. glipiZIDE 5 2020- No [id number] 2.5mg Take 0.5 [facility] mg tablet 03-07 05-23 tablets by ity of 00:00: 04:59 mouth 2 [place] 00 :00 (two) Medical times Branch daily before breakfast and dinner for 30 days. metoprolol 2019-0 2020- No [id number] 25mg Take 1 [facility] succinate 4-22 05-23 tablet by ity of XL 25 mg 24 00:00: 04:59 mouth 2 [place] hr tablet 00 :00 (two) Medical times Branch daily for 30 days. OLANZapine 2020-0 2020- No [id number] 2.5mg Take 1 [facility] 2.5 mg 4-22 05-23 tablet by ity of tablet 00:00: 04:59 mouth at [place] 00 :00 bedtime Medical for 30 Branch days. ranolazine 2019-0 2020- No [id number] 1000mg Take 2 [facility] 500 mg 12 4-22 05-23 tablets by ity of hr tablet 00:00: 04:59 mouth [place] 00 :00 every 12 Medical (twelve) Branch hours for 30 days. aspirin 81 2019-0 2020- No [id number] 81mg Take 1 [facility] mg chewable 4-22 05-23 tablet by it y of tablet 00:00: 04:59 mouth [place] 00 :00 daily with Medical breakfast Branch for 30 days. atorvastati 2019-0 2020- No [id number] 40mg Take 1 [facility] n 40 mg 4-22 05-23 tablet by ity of tablet 00:00: 04:59 mouth at [place] 00 :00 bedtime Medical for 30 Branch days. glipiZIDE 5 2019-0 2020- No [id number] 2.5mg Take 0.5 [facility] mg tablet 4-22 05-23 tablets by ity of 00:00: 04:59 mouth 2 [place] 00 :00 (two) Medical times Branch daily before breakfast and dinner for 30 days. metoprolol 2019-0 2020- No [id number] 25mg Take 1 [facility] succinate 4-22 05-23 tablet by ity of XL 25 mg 24 00:00: 04:59 mouth 2 [place] hr tablet 00 :00 (two) Medical times Branch daily for 30 days. OLANZapine 2020-0 2020- No [id number] 2.5mg Take 1 [facility] 2.5 mg 4-22 05-23 tablet by ity of tablet 00:00: 04:59 mouth at [place] 00 :00 bedtime Medical for 30 Branch days. ranolazine 2020-0 2020- No [id number] 1000mg Take 2 [facility] 500 mg 12 4-22 05-23 tablets by ity of hr tablet 00:00: 04:59 mouth [place] 00 :00 every 12 Medical (twelve) Branch hours for 30 days. aspirin 81 2019- 2020- No [id number] 81mg Take 1 [facility] mg chewable 4-22 05-23 tablet by it y of tablet 00:00: 04:59 mouth [place] 00 :00 daily with Medical breakfast Branch for 30 days. atorvastati 2019- 2020- No [id number] 40mg Take 1 [facility] n 40 mg 4- 05-23 tablet by ity of tablet 00:00: 04:59 mouth at [place] 00 :00 bedtime Medical for 30 Branch days. glipiZIDE 5 2020- No [id number] 2.5mg Take 0.5 [facility] mg tablet 03-07-23 tablets by ity of 00:00: 04:59 mouth 2 [place] 00 :00 (two) Medical times Branch daily before breakfast and dinner for 30 days. metoprolol 2019- 2020- No [id number] 25mg Take 1 [facility] succinate -06 04-23 tablet by ity of XL 25 mg 24 00:00: 04:59 mouth 2 [place] hr tablet 00 :00 (two) Medical times Branch daily for 30 days. ranolazine 2020- No [id number] 1000mg Take 2 [facility] 500 mg 12 -06 04-23 tablets by ity of hr tablet 00:00: 04:59 mouth [place] 00 :00 every 12 Medical (twelve) Branch hours for 30 days. atorvastati 2019- 2020- No [id number] 40mg Take 1 [facility] n 40 mg -06 04-23 tablet by ity of tablet 00:00: 04:59 mouth at [place] 00 :00 bedtime Medical for 30 Branch days. furosemide 2019- 2020- No [id number] 40mg Take 1 [facility] 40 mg 4-22 05-08 tablet by ity of tablet 00:00: 00:00 mouth [place] 00 :00 every Medical morning Branch and evening. aspirin 81 2019- 2020- No [id number] 81mg Take 1 [facility] mg chewable 4-22 05-08 tablet by it y of tablet 00:00: 00:00 mouth [place] 00 :00 daily with Medical breakfast Branch for 30 days. isosorbide 2020-0 2020- No [id number] 15mg Take 0.5 [facility] mononitrate 4-22 05-08 tablets by i ty of 30 mg 24 hr 00:00: 00:00 mouth [place] tablet 00 :00 daily. Medical Hold if Branch systolic blood pressure less than 120 Insulin 2019- 2020- No [id number] 10U inject 10 [facility] Glargine 03-07-08 Units ity of 100 unit/mL 00:00: 00:00 under the [place] (3 mL) 00 :00 skin at Medical injection bedtime. Branch glipiZIDE 5 2019- No [id number] 2.5mg Take 0.5 [facility] mg tablet 03-07-08 tablets by ity of 00:00: 00:00 mouth 2 [place] 00 :00 (two) Medical times Branch daily before breakfast and dinner for 30 days. metoprolol 2019- No [id number] 25mg Take 1 [facility] succinate 03-07-08 tablet by ity of XL 25 mg 24 00:00: 00:00 mouth 2 [place] hr tablet 00 :00 (two) Medical times Branch daily for 30 days. ranolazine 2019- No [id number] 1000mg Take 2 [facility] 500 mg 12 03-07-08 tablets by ity of hr tablet 00:00: 00:00 mouth [place] 00 :00 every 12 Medical (twelve) Branch hours for 30 days. furosemide 2019- 2020- No [id number] 40mg Take 1 [facility] 40 mg 03-07-08 tablet by ity of tablet 00:00: 00:00 mouth [place] 00 :00 every Medical morning Branch and evening. aspirin 81 2019- No [id number] 81mg Take 1 [facility] mg chewable 03-07-08 tablet by it y of tablet 00:00: 00:00 mouth [place] 00 :00 daily with Medical breakfast Branch for 30 days. atorvastati 2019- No [id number] 40mg Take 1 [facility] n 40 mg 03-07-08 tablet by ity of tablet 00:00: 00:00 mouth at [place] 00 :00 bedtime Medical for 30 Branch days. Magnesium 2019- 2020- No [id number] 400mg Take 400 [facility] Oxide 420 03-07 05-08 mg by ity of mg Tab 00:00: 00:00 mouth [place] 00 :00 daily. Medical Branch vitamin 2019-2019- No [id number] 1000ug Take 1 [facility] B-12 1,000 03-07 05-08 tablet by ity of mcg tablet 00:00: 00:00 mouth [place] 00 :00 daily for Medical 90 days. Branch isosorbide 2019- No [id number] 15mg Take 0.5 [facility] mononitrate 03-07-08 tablets by i ty of 30 mg 24 hr 00:00: 00:00 mouth [place] tablet 00 :00 daily. Medical Hold if Branch systolic blood pressure less than 120 OLANZapine 2019-2019- No [id number] 2.5mg Take 1 [facility] 2.5 mg 03-07-07 tablet by ity of tablet 00:00: 00:00 mouth at [place] 00 :00 bedtime Medical for 30 Branch days. temazepam 2019- 2020- No [id number] 15mg Take 1 U nivers 15 mg 03-07-07 capsule by ity of capsule 00:00: 00:00 mouth at [place] 00 :00 bedtime as Medical needed for Branch Insomnia. potassium 2019- 2020- No [id number] 20meq Take 20 Univers chloride 20 - 05-07 mEq by ity o f mEq packet 00:00: 00:00 mouth [place] 00 :00 daily. Medical Take with Branch lasix in the morning OLANZapine 2019-2019- No [id number] 2.5mg Take 1 [facility] 2.5 mg 03-07-07 tablet by ity of tablet 00:00: 00:00 mouth at [place] 00 :00 bedtime Medical for 30 Branch days. temazepam 2019- No [id number] 15mg Take 1 U nivers 15 mg 03-07 05-07 capsule by ity of capsule 00:00: 00:00 mouth at [place] 00 :00 bedtime as Medical needed for Branch Insomnia. potassium 2019-2019- No [id number] 20meq Take 20 [facility] chloride 20 -22 05-07 mEq by ity o f mEq packet 00:00: 00:00 mouth [place] 00 :00 daily. Medical Take with Branch lasix in the morning isosorbide 2019- 2020- No 60mg 60 mg, Univ ers mononitrate 03-06- Oral, ity of (IMDUR) 24 14:00: 13:43 DAILY, [place] hr tablet 00 :56 First dose Medi birdie 60 mg on Tu Branch 03/06/20 at 0900, Until Discontinu ed, Routine OLANZapine 2019-0 Yes 2.5mg 2.5 mg, Uni vers (ZyPREXA) 4-21 Oral, QHS, ity of tablet 2.5 02:00: First dose [place] mg 00 on [facility] 03/05/20 at Branch 2100, Until Discontinu ed, Routine insulin 2020-0 Yes 10U 10 Units, Unive rs glargine 21 Subcutaneo ity o f (LANTUS 02:00: us, QHS, [place] U-100) 00 First dose Medical injection on [facility] 10 Units 03/05/20 at 2100, Until Discontinu ed, Routine donepezil 2020-0 Yes 5mg 5 mg, Univers (ARICEPT) 4-21 Oral, QHS, ity of tablet 5 mg 02:00: First dose [place] 00 on [facility] 03/05/20 at Branch 2100, Until Discontinu ed, Routine atorvastati 2020-0 Yes 40mg 40 mg, Univ ers n (LIPITOR) 4- Oral, QHS, it y of tablet 40 02:00: First dose [place] mg 00 on [facility] 03/05/20 at Branch 2100, Until Discontinu ed, Routine isosorbide 2020-0 2020- No 30mg 30 mg, Univ ers mononitrate 03-05-20 Oral, ity of (IMDUR) 24 15:30: 15:21 ONCE, 1 [place] hr tablet 00 :00 dose, [facility] Medic al 30 mg 03/05/20 at Branch 1030, Routine spironolact 2020-0 Yes 12.5mg 12.5 mg, Univers one -20 Oral, ity of (ALDACTONE) 14:00: DAILY, [place] tablet 12.5 00 First dose Me dical mg on [facility] 03/05/20 at 0900, Until Discontinu ed, Routine memantine 2020-0 Yes 10mg 10 mg, Univer s (NAMENDA) 4-20 Oral, ity of tablet 10 14:00: DAILY, [place] mg 00 First dose Medical on [facility] 03/05/20 at 0900, Until Discontinu ed, Routine
juice bar team member approving Restricted medication : MEGADC lisinopril 2020-0 2020- No 5mg 5 mg, Unive rs (PRINIVIL,Z 03-05- Oral, ity of ESTRIL) 14:00: 13:44 DAILY, [place] tablet 5 mg 00 :01 First dose Me dical on [facility] Branch 03/05/20 at 0900, Until Discontinu ed, Routine isosorbide 2020-0 2020- No 30mg 30 mg, Univ ers mononitrate 4-20 04-20 Oral, ity of (IMDUR) 24 14:00: 14:20 DAILY, [place] hr tablet 00 :04 First dose Medi birdie 30 mg on [facility] Branch 03/05/20 at 0900, Until Discontinu ed, Routine ranolazine 2020-0 Yes 500mg 500 mg, Uni vers (RANEXA) 12 4-20 Oral, ity of hr tablet 13:00: Q12H, [place] 500 mg 00 First dose Medical on [facility] Branch 03/05/20 at 0800, Until Discontinu ed, [...] dose [place] 400) [facility] at Branch 0800, [...] IV ity of (D50W) 03:02: Push, PRN, [place] injection 42 Starting Medica l 25 mL [facility] 03/04/20 at 2202, Until Discontinu ed, ADAMA, Blood Glucose < or = 70 mg/dL and patient is unable to swallow or has mental status changes. furosemide 2020-0 Yes 40mg 40 mg, Unive rs (LASIX) 4-20 Oral, ity of tablet 40 03:00: QAM+PM, [place] mg 00 First dose Medical on [facility] 03/04/20 at 2200, Until Discontinu ed, Routine cyanocobala 2020-0 Yes 1000ug 1,000 mcg, Univers min -20 Subcutaneo ity of (VITAMIN 03:00: us, Q24H, [place] B12) 00 First dose Medical injection on [facility] 1,000 mcg 03/04/20 at 2200, Until Discontinu ed, Routine heparin 2020-0 Yes 5000U 5,000 Univers (porcine) 4-20 Units, ity of injection 03:00: Subcutaneo [place] 5,000 Units 00 us, Q8H, Medi birdie First dose Branch on [place] 03/04/20 at 2200, Until Discontinu ed, Routine ondansetron 2020-0 Yes 4mg 4 mg, Slow Univers (ZOFRAN 4-20 IV Push, ity of (PF)) 02:34: Q6HPRN, [place] injection 4 40 Starting Medi birdie mg [facility] 03/04/20 at 2134, Until Discontinu ed, Routine, Nausea and Vomiting (N/V) traMADol 2020-0 2020- No 50mg 50 mg, Univer s (ULTRAM) 4-20 04-22 Oral, ity of tablet 50 02:34: 02:33 Q8HPRN, [place] mg 23 :23 Starting Medical [facility] 03/04/20 at 2134, Until 03/06/20 at 2133, Routine, Pain (scale 4-6) acetaminoph 2020-0 Yes 650mg 650 mg, Un mel en 4-20 Oral, ity of (TYLENOL) 02:34: Q6HPRN, [place] tablet 650 20 Starting Medic al mg [facility] 03/04/20 at 2134, Until Discontinu ed, Routine, Pain (scale 1-3) lisinopril 2020-0 Yes [id number] 5mg Take 1 [facility] 5 mg tablet 4-18 tablet by ity of 00:00: mouth [place] 00 daily. Medical Branch isosorbide 2020-0 Yes [id number] 30mg Take 1 [facility] mononitrate 4-18 tablet by ity of 30 mg 24 hr 00:00: mouth [place] tablet 00 daily. Medical Branch lisinopril 2019-0 Yes [id number] 5mg Take 1 [facility] 5 mg tablet 4-18 tablet by ity of 00:00: mouth [place] 00 daily. Medical Branch isosorbide 2020-0 Yes [id number] 30mg Take 1 [facility] mononitrate 4-18 tablet by ity of 30 mg 24 hr 00:00: mouth [place] tablet 00 daily. Medical Branch lisinopril 2020-0 2020- No [id number] 5mg Take 1 [facility] 5 mg tablet 4-18 04-22 tablet by it y of 00:00: 00:00 mouth [place] 00 :00 daily. Medical Branch isosorbide 2020-0 2020- No [id number] 30mg Take 1 [facility] mononitrate 4-18 04-22 [...] ACID ORAL) Cholecalcif 2019-0 Yes Take by Uni vers ann, 4-17 mouth. ity of Vitamin D3, 17:34: [place] 2,000 unit 27 Medical capsule Branch metoprolol 2020-0 Yes 12.5mg Take 12.5 Univers tartrate 4-17 mg by ity of 12.5 mg 17:34: mouth 2 [place] [address] (two) Medical times Branch daily. MULTIVITAMI 2020-0 Yes Take by Uni vers N ORAL 4-17 mouth. ity of 17:34: [place] [address] Medical Branch thiamine 2020-0 Yes 100mg Take 100 Univ ers (VITAMIN 4-17 mg by ity of B-1) 100 mg 17:34: mouth [place] tablet 27 daily. Medical Branch aspirin 81 2020-0 Yes 81mg Take 81 mg U nivers mg chewable 4-17 by mouth ity of tablet 17:34: daily. [place] [address] Medical Branch atorvastati 2020-0 Yes 40mg Take 40 mg Univers n 40 mg 4-17 by mouth ity of tablet 17:34: at [place] [address] bedtime. Medical Branch NaCl 0.9% 2020-0 Yes [...] ACID ORAL) Cholecalcif 2020-0 Yes Take by Uni vers ann, 4-17 mouth. ity of Vitamin D3, 17:34: [place] 2,000 unit 27 Medical capsule Branch metoprolol 2020-0 Yes 12.5mg Take 12.5 Univers tartrate 4-17 mg by ity of 12.5 mg 17:34: mouth 2 [place] [address] (two) Medical times Branch daily. MULTIVITAMI 2020-0 Yes Take by Uni vers N ORAL 4-17 mouth. ity of 17:34: [place] [address] Medical Branch thiamine 2020-0 Yes 100mg Take 100 Univ ers (VITAMIN 4-17 mg by ity of B-1) 100 mg 17:34: mouth [place] tablet 27 daily. Medical Branch aspirin 81 2020-0 Yes 81mg Take 81 mg U nivers mg chewable 4-17 by mouth ity of tablet 17:34: daily. [place] [address] Medical Branch atorvastati 2020-0 Yes 40mg Take 40 mg Univers n 40 mg 4-17 by mouth ity of tablet 17:34: at [place] 27 bedtime. Medical Branch NaCl 0.9% 2020-0 [...] tablet 5 mg 02:00: First dose on [facility] Medical 03/01/20 at Branch 2100, Until Discontinu ed, Routine furosemide 2020-0 Yes [id number] 40mg Take 1 Univers 40 mg 4-17 tablet by ity of tablet 00:00: mouth [place] 00 every Medical morning Branch and evening. potassium 2020-0 Yes [id number] 20meq Take 20 Univers chloride 20 4-17 mEq by ity of mEq packet 00:00: mouth [place] 00 daily. Medical Branch vitamin 2020-0 Yes [id number] 1000ug Take 1 U nivers B-12 1,000 4-17 tablet by ity of mcg tablet 00:00: mouth [place] 00 daily. Medical Branch furosemide 2020-0 Yes [id number] 40mg Take 1 [facility] 40 mg 4-17 tablet by ity of tablet 00:00: mouth [place] 00 every Medical morning Branch and evening. potassium 2020-0 Yes [id number] 20meq Take 20 Univers chloride 20 4-17 mEq by ity of mEq packet 00:00: mouth [place] 00 daily. Medical Branch vitamin 2020-0 Yes [id number] 1000ug Take 1 U nivers B-12 1,000 4-17 tablet by ity of mcg tablet 00:00: mouth [place] 00 daily. Medical Branch furosemide 2020-0 2020- No [id number] 40mg Take 1 [facility] 40 mg 03-02-22 tablet by ity of tablet 00:00: 00:00 mouth [place] 00 :00 every Medical morning Branch and evening. potassium 2020-0 2020- No [id number] 20meq Take 20 Univers chloride 20 -02 03-22 mEq by ity o f mEq packet 00:00: 00:00 mouth [place] 00 :00 daily. Medical Branch vitamin 2020-0 2020- No [id number] 1000ug Take 1 Univers B-12 1,000 03-02- tablet by ity of mcg tablet 00:00: 00:00 mouth [place] 00 :00 daily. Medical Branch cyanocobala 2020-0 Yes 1000ug 1,000 mcg, Univers min 4-16 Subcutaneo ity of (VITAMIN 20:45: us, Q24H, [place] B12) 00 First dose Medical injection on [facility] Branch 1,000 mcg 03/01/20 at 1545, Until Discontinu ed, Routine isosorbide 2020-0 Yes 30mg 30 mg, Unive rs mononitrate 4-16 Oral, ity of (IMDUR) 24 14:00: DAILY, [place] hr tablet 00 First dose Medi birdie 30 mg on [facility] Branch 03/01/20 at 0900, Until Discontinu ed, Routine memantine 2020-0 Yes 10mg 10 mg, Univer s (NAMENDA) 4-16 Oral, ity of tablet 10 14:00: DAILY, [place] mg 00 First dose Medical on [facility] Branch 03/01/20 at 0900, Until Discontinu ed, Routine
juice bar team member approving Restricted medication : [facility] lisinopril 2020-0 Yes 5mg 5 mg, Univer s (PRINIVIL,Z 4-16 Oral, ity of ESTRIL) 14:00: DAILY, [place] tablet 5 mg 00 First dose Me dical on [facility] Branch 03/01/20 at 0900, Until Discontinu ed, Routine enoxaparin 2020-0 Yes 30mg 30 mg, Unive rs (LOVENOX) 4-16 Subcutaneo ity of injection 14:00: [place], DAILY, [place] 30 mg 00 First dose Medical on [facility] Branch 03/01/20 at 0900, Until Discontinu ed, Routine KCL 2019-0 2020- No 20meq 20 mEq, Univers (KLOR-CON 03-01 Oral, ity of M20) tablet 14:00: 13:26 DAILY, [place] 20 mEq 00 :35 First dose Medical on [facility] [place] 03/01/20 at 0900, Until Discontinu ed, Routine KCL 2020-0 Yes 40meq 40 mEq, Univers (KLOR-CON 03-01 Oral, BID, ity of M20) tablet 13:30: First dose [place] 40 mEq 00 on [facility] 03/01/20 at Branch 0830, Until Discontinu ed, Routine magnesium 2020-0 2020- No 2g 2 g, IV Univ ers sulfate in 03-01 Infusion, ity of water 2 03:30: 03:30 ONCE, 1 [place] gram/50 mL 00 :00 dose, Thu [facility] birdie (4 %) 2 g 02/29/20 at [facility] piggyback 2230 metoprolol 2020-0 2020- No 5mg 5 mg, Slow Univers (LOPRESSOR) 03-01 IV Push, ity of injection 5 03:30: 03:37 ONCE, 1 [place] mg 00 :00 dose, [facility] 02/29/20 at Branch 2230, ADAMA glipiZIDE 2020-0 Yes 5mg 5 mg, Univers (GLUCOTROL) 03-01 Oral, ity of tablet 5 mg 02:45: BIDAC, [place] 00 First dose Medical on [facility] 02/29/20 at 2145, Until Discontinu ed, Routine insulin 2020-0 Yes 10U 10 Units, Unive rs glargine 03-01 Subcutaneo ity o f (LANTUS 02:45: us, Q, [place] U-100) 00 First dose Medical injection on Thu Branch 10 Units 02/29/20 at 2145, Until Discontinu ed, Routine OLANZapine 2020-0 Yes 2.5mg 2.5 mg, Uni vers (ZyPREXA) 03-01 Oral, QHS, ity of tablet 2.5 02:45: First dose [place] mg 00 on Thu [facility] 02/29/20 at Branch 2145, Until Discontinu [...] tablet 650 25 Starting Medic al mg [facility] Branch 02/29/20 at 1857, Until Discontinu ed, Routine, Pain (scale 1-3) NaCl 0.9% 2019- No 500mL at 999 Univ ers (NS) bolus 02-28- mL/hr, 500 it y of infusion 23:30: 23:37 mL, IV [place] 500 mL 00 :00 Infusion, Medical ONCE, 1 Branch dose, [facility] 02/29/20 at 1830, ADAMA acetaminoph 2019- No 650mg 650 mg, U nivers en 02-28 Oral, ity of (TYLENOL) 23:00: 22:36 ONCE, 1 [place] tablet 650 00 :00 dose, Thu Medi birdie mg 02/29/20 at Branch 1800, ADAMA donepezil 5 2019- Yes 5mg Take 5 mg U nivers mg tablet 02-14 by mouth ity of 00:00: daily. [place] [facility] donepezil 5 2019- No 5mg Take 5 mg Univers mg tablet 02-14 by mouth ity o f 00:00: 00:00 daily. [place] 00 :00 [facility] Branch nitroglycer 2019- No DISSOLVE U nivers [...] Medical Branch Cholecalcif 2020-0 Yes Take by Uni vers ann, 3-03 mouth. ity of Vitamin D3, 23:00: [place] 2,000 unit 52 Medical capsule Branch metoprolol 2020-0 Yes 12.5mg Take 12.5 Univers tartrate 3-03 mg by ity of 12.5 mg 23:00: mouth 2 [place] 52 (two) Medical times Branch daily. MULTIVITAMI 2020-0 Yes Take by Uni vers N ORAL 3-03 mouth. ity of 23:00: [place] [address] Medical Branch thiamine 2020-0 Yes 100mg Take 100 Univ ers (VITAMIN 3-03 mg by ity of B-1) 100 mg 23:00: mouth [place] tablet 52 daily. Medical Branch aspirin 81 2020-0 Yes 81mg Take 81 mg U nivers mg chewable 3-03 by mouth ity of tablet 23:00: daily. [place] [address] Medical Branch atorvastati 2020-0 Yes 40mg Take 40 mg Univers n 40 mg 3-03 by mouth ity of tablet 23:00: at [place] 52 bedtime. Medical Branch NaCl 0.9% 2020-0 [...] Medical Branch Cholecalcif 2020-0 Yes Take by Uni vers ann, 3-03 mouth. ity of Vitamin D3, 23:00: [place] 2,000 unit 52 Medical capsule Branch metoprolol 2020-0 Yes 12.5mg Take 12.5 Univers tartrate 3-03 mg by ity of 12.5 mg 23:00: mouth 2 [place] 52 (two) Medical times Branch daily. MULTIVITAMI 2020-0 Yes Take by Uni vers N ORAL 3-03 mouth. ity of 23:00: [place] 52 Medical Branch thiamine 2020-0 Yes 100mg Take 100 Univ ers (VITAMIN 3-03 mg by ity of B-1) 100 mg 23:00: mouth [place] tablet 52 daily. Medical Branch aspirin 81 2020-0 Yes 81mg Take 81 mg U nivers mg chewable 3-03 by mouth ity of tablet 23:00: daily. [place] 52 Medical Branch atorvastati 2020-0 Yes 40mg Take 40 mg Univers n 40 mg 3-03 by mouth ity of tablet 23:00: at [place] [address] bedtime. Medical Branch NaCl 0.9% 2020-0 Yes [...] Medical Branch Cholecalcif 2020-0 Yes Take by Uni vers ann, 3-03 mouth. ity of Vitamin D3, 23:00: [place] 2,000 unit 52 Medical capsule Branch metoprolol 2020-0 Yes 12.5mg Take 12.5 Univers tartrate 3-03 mg by ity of 12.5 mg 23:00: mouth 2 [place] [address] (two) Medical times Branch daily. MULTIVITAMI 2020-0 Yes Take by Uni vers N ORAL 3-03 mouth. ity of 23:00: [place] [address] Medical Branch thiamine 2020-0 Yes 100mg Take 100 Univ ers (VITAMIN 3-03 mg by ity of B-1) 100 mg 23:00: mouth [place] tablet 52 daily. Medical Branch aspirin 81 2020-0 Yes 81mg Take 81 mg U nivers mg chewable 3-03 by mouth ity of tablet 23:00: daily. [place] [address] Medical Branch atorvastati 2020-0 Yes 40mg Take 40 mg Univers n 40 mg 3-03 by mouth ity of tablet 23:00: at [place] [address] bedtime. Medical Branch NaCl 0.9% 2020-0 Yes [...] Medical Branch Cholecalcif 2020-0 Yes Take by Uni vers ann, 3-03 mouth. ity of Vitamin D3, 23:00: [place] 2,000 unit 52 Medical capsule Branch metoprolol 2020-0 Yes 12.5mg Take 12.5 Univers tartrate 3-03 mg by ity of 12.5 mg 23:00: mouth 2 [place] 52 (two) Medical times Branch daily. MULTIVITAMI 2020-0 Yes Take by Uni vers N ORAL 3-03 mouth. ity of 23:00: [place] [address] Medical Branch thiamine 2020-0 Yes 100mg Take 100 Univ ers (VITAMIN 3-03 mg by ity of B-1) 100 mg 23:00: mouth [place] tablet 52 daily. Medical Branch aspirin 81 2019-0 Yes 81mg Take 81 mg U nivers mg chewable 3-03 by mouth ity of tablet 23:00: daily. [place] [address] Medical Branch atorvastati 2020-0 Yes 40mg Take 40 mg Univers n 40 mg 3-03 by mouth ity of tablet 23:00: at [place] [address] bedtime. Medical Branch NaCl 0.9% 2019-0 Yes 10mL Inject 10 Uni vers (NS) Soln 3-03 mL ity of 10 mL with 23:00: intravenou [place] sodium 52 sly once Medical chloride now. [place] 2.5 mEq/mL SolP 17.125 mEq atorvastati 2019- Yes 40mg 40 mg, Univ ers n (LIPITOR) 3-03 Oral, QHS, it y of tablet 40 03:00: First dose [place] mg 00 on [facility] 01/16/20 at Branch 2100, Until Discontinu ed, Routine ranolazine 2019-0 2020- No [id number] 500mg Take 1 [facility] 500 mg 12 01-16- tablet by ity of hr tablet 00:00: 04:59 mouth [place] 00 :00 every 12 Medical (twelve) Branch hours for 30 days. ranolazine 2020-0 2020- No [id number] 500mg Take 1 [facility] 500 mg 12 01-16-03 tablet by ity of hr tablet 00:00: 04:59 mouth [place] 00 :00 every 12 Medical (twelve) Branch hours for 30 days. ranolazine 2020-0 2020- No [id number] 500mg Take 1 [facility] 500 mg 12 01-16 04-03 tablet by ity of hr tablet 00:00: 04:59 mouth [place] 00 :00 every 12 Medical (twelve) Branch hours for 30 days. ranolazine 2020-0 2020- No [id number] 500mg Take 1 [facility] 500 mg 01-16-03 tablet by ity of hr tablet [...] U-100) 00 First dose Medical injection on [facility] Branch 30 Units 01/16/20 at 0900, Until Discontinu ed furosemide 2020-0 Yes 40mg 40 mg, Unive rs (LASIX) 302 Oral, ity of tablet 40 15:00: DAILY, [place] mg 00 First dose Medical on Thu Branch 01/16/20 at 0900, Until Discontinu ed, Routine aspirin 2020-0 Yes 81mg 81 mg, Univers chewable 3- Oral, ity of tablet 81 15:00: DAILY, [...] [facility] Medica l Testing 01/16/20 at Branch 0600, [...] injection 33 Starting Medica l 25 mL [facility] 01/16/20 Branch at 0452, Until Discontinu ed, [...] IV Push, ity of mg 07:54: 07:53 [facility], [place] 55 :55 Starting Medical 01/16/20 Branch at 0154, Until 01/17/20 at 0153, Routine, Pain (scale 7-10) traMADol 2019-0 2020- No 50mg 50 mg, Univer s (ULTRAM) 01-15 03-04 Oral, ity of tablet 50 07:54: 07:53 [facility] [place] [facility]47 Starting Medical 01/16/20 Branch at 0154, Until 01/18/20 at 0153, Routine, Pain (scale 4-6) acetaminoph 2019-0 Yes 650mg 650 mg, Un mel en 01-15 Oral, ity of (TYLENOL) 07:54: Q6[place], [place] tablet 650 44 Starting Medic al mg 01/16/20 Branch at 0154, Until Discontinu ed, Routine, Pain (scale 1-3) insulin 2020-0 2020- No 8U 8 Units, Unive rs regular 01-15- Slow IV ity of human 06:45: 05:40 [facility], [place] (HUMULIN R) 00 :00 ONCE, 1 [...] 0 2020- No 4000U 4,000 Univers 1000 01-15 03-02 Units, IV ity of unit/mL 05:45: 05:47 Push, [place] injection 00 :00 ONCE, 1 Medical Soln 4,000 dose, Sun Bran ch Units 01/15/20 at 2345, ADAMA multivitami 2018-11 Yes 1{tbl} QD Take 1 Me thodi n 1-[address] (THERAGRAN) 00:00: mouth Hospi ta tablet 00 nightly. l furosemide 2018-11 Yes [id number] 40mg Take 1 Univers 40 mg 0-26 tablet by ity of tablet 00:00: mouth [place] 00 daily. Medical Branch furosemide 2018-11 Yes [id number] 40mg Take 1 Univers 40 mg 0-26 tablet by ity of tablet 00:00: mouth [place] 00 daily. Medical Branch furosemide 2018-11 Yes [id number] 40mg Take 1 Univers 40 mg 0-26 tablet by ity of tablet 00:00: mouth [place] 00 daily. Medical Branch furosemide 2018-11 Yes [id number] 40mg Take 1 Univers 40 mg 0-26 tablet by ity of tablet 00:00: mouth [place] 00 daily. Medical Branch furosemide 2018-11 2020- No [id number] 40mg Take 1 Univers 40 mg 0-26 04-17 tablet by ity of tablet 00:00: 00:00 mouth [place] 00 :00 daily. Medical Branch magnesium 2018-11 Yes [id number] 400mg Take 400 Univers oxide 420 0-23 mg by ity of mg Tab 00:00: mouth [place] 00 daily. Medical Branch magnesium 2018-11 Yes [id number] 400mg Take 400 Univers oxide 420 0-23 mg by ity of mg Tab 00:00: mouth [place] 00 daily. Medical Branch magnesium 2018-11 Yes [id number] 400mg Take 400 Univers oxide 420 0-23 mg by ity of mg Tab 00:00: mouth [place] 00 daily. Medical Branch magnesium 2018-11 Yes [id number] 400mg Take 400 Univers oxide 420 0-23 mg by ity of mg Tab 00:00: mouth [place] 00 daily. Medical Branch magnesium 2019-1 Yes [id number] 400mg Take 400 Univers oxide 420 0-23 mg by ity of mg Tab 00:00: mouth [place] 00 daily. [facility] magnesium 2019-1 Yes [id number] 400mg Take 400 Univers oxide 420 0-23 mg by ity of mg Tab 00:00: mouth [place] 00 daily. [facility] magnesium 2019-1 2020- No [id number] 400mg Take 400 Univers oxide 420 0-23 04-22 mg by ity of mg Tab 00:00: 00:00 mouth [place] 00 :00 daily. [facility] Insulin 2019-0 Yes [id number] 30U inject 30 Univers Glargine 9-11 Units ity of 100 unit/mL 00:00: under the [place] (3 mL) 00 skin every Medical injection morning. Branch Insulin 2018-0 Yes [id number] 30U inject 30 Univers Glargine 9-11 Units ity of 100 unit/mL 00:00: under the [place] (3 mL) 00 skin every Medical injection morning. Branch Insulin 2018-0 Yes [id number] 30U inject 30 Univers Glargine 9-11 Units ity of 100 unit/mL 00:00: under the [place] (3 mL) 00 skin every Medical injection morning. Branch Insulin 2018-0 Yes [id number] 30U inject 30 Univers Glargine 9-11 Units ity of 100 unit/mL 00:00: under the [place] (3 mL) 00 skin every Medical injection morning. Branch Insulin 2019-0 Yes [id number] 30U inject 30 Univers Glargine 9-11 Units ity of 100 unit/mL 00:00: under the [place] (3 mL) 00 skin every Medical injection morning. Branch Insulin 2018-0 Yes [id number] 30U inject 30 Univers Glargine 9-11 Units ity of 100 unit/mL 00:00: under the [place] (3 mL) 00 skin every Medical injection morning. Branch Insulin 2019-0 Yes [id number] 30U inject 30 Univers Glargine 9-11 Units ity of 100 unit/mL 00:00: under the [place] (3 mL) 00 skin every Medical injection morning. Branch Insulin 2019-0 2020- No [id number] 30U inject 30 Univers Glargine 9-11 04-22 Units ity of 100 unit/mL 00:00: 00:00 under the [place] (3 mL) 00 :00 skin every Medical injection morning. Branch NAMZARIC Yes TAKE 1 Methodi 28-10 mg 6-[address] capsule,spr 00:00: MOUTH ONCE [facility] 00 DAILY l 24hr memantine-d Yes 1{capsu Take 1 U nivers onepezil 5-10 le} capsule by ity o f (NAMZARIC) 15:26: mouth [place] 28-10 mg 43 daily. Medical CSpX Branch enoxaparin Yes 30mg inject 30 Un mel injection 5-10 mg under ity of 15:26: the skin. [place] [address] Medical Branch Cholecalcif Yes Take by Uni vers ann, 5-10 mouth. ity of Vitamin D3, 15:26: [place] 2,000 unit 43 Medical capsule Branch metoprolol Yes 12.5mg Take 12.5 Univers tartrate 5-10 mg by ity of 12.5 mg 15:26: mouth 2 [place] 43 (two) Medical times Branch daily. MULTIVITAMI Yes Take by Uni vers N ORAL 5-10 mouth. ity of 15:26: [place] [address] Medical Branch thiamine 0 Yes 100mg Take 100 Univ ers (VITAMIN 5-10 mg by ity of B-1) 100 mg 15:26: mouth [place] tablet 43 daily. Medical Branch aspirin 81 Yes 81mg Take 81 mg U nivers mg chewable 5-10 by mouth ity of tablet 15:26: daily. [place] [address] Medical Branch atorvastati Yes 40mg Take 40 mg Univers n 40 mg 5-10 by mouth ity of tablet 15:26: at [place] 43 bedtime. Medical Branch furosemide 0 Yes 40mg Take 40 mg U nivers 40 mg 5-10 by mouth ity of tablet 15:26: daily. [place] [address] Medical Branch NaCl 0.9% 0 Yes 10mL [...] mg under ity of 15:26: the skin. [place] [address] Medical Branch Cholecalcif 0 Yes Take by Uni vers ann, 5-10 mouth. ity of Vitamin D3, 15:26: [place] 2,000 unit Medical capsule Branch metoprolol 0 Yes 12.5mg Take 12.5 Univers tartrate 5-10 mg by ity of 12.5 mg 15:26: mouth 2 [place] [address] (two) Medical times Branch daily. MULTIVITAMI 0 Yes Take by Uni vers N ORAL 5-10 mouth. ity of 15:26: [place] [address] Medical Branch thiamine 0 Yes 100mg Take 100 Univ ers (VITAMIN 5-10 mg by ity of B-1) 100 mg 15:26: mouth [place] tablet 43 daily. Medical Branch aspirin 81 Yes 81mg Take 81 mg U nivers mg chewable 5-10 by mouth ity of tablet 15:26: daily. [place] [address] Medical Branch atorvastati 0 Yes 40mg Take 40 mg Univers n 40 mg 5-10 by mouth ity of tablet 15:26: at [place] 43 bedtime. Medical Branch furosemide 0 Yes 40mg Take 40 mg U nivers 40 mg 5-10 by mouth ity of tablet 15:26: daily. [place] [address] Medical Branch NaCl 0.9% 0 Yes 10mL Inject 10 Uni vers (NS) Soln 5-10 mL ity of 10 mL with 15:26: intravenou [place] sodium 43 sly once Medical chloride now. Branch 2.5 mEq/mL SolP 17.125 mEq insulin 2018-0 Yes [id number] 4U inject 4 U nivers lispro, 5-10 Units ity of human, 100 00:00: under the [place] unit/mL 00 skin 3 Medical injection (three) Branch times daily before meals. insulin 0 Yes [id number] 4U inject 4 U nivers lispro, 5-10 Units ity of human, 100 00:00: under the [place] unit/mL 00 skin 3 Medical injection (three) Branch times daily before meals. insulin 2019-0 Yes [id number] 4U inject 4 U nivers lispro, 5-10 Units ity of human, 100 00:00: under the [place] unit/mL 00 skin 3 Medical injection (three) Branch times daily before meals. insulin 2019-0 Yes [id number] 4U inject 4 U nivers lispro, 5-10 Units ity of human, 100 00:00: under the [place] unit/mL 00 skin 3 Medical injection (three) Branch times daily before meals. insulin 2019-0 Yes [id number] 4U inject 4 U nivers lispro, 5-10 Units ity of human, 100 00:00: under the [place] unit/mL 00 skin 3 Medical injection (three) Branch times daily before meals. insulin 2019-0 Yes [id number] 4U inject 4 U nivers lispro, 5-10 Units ity of human, 100 00:00: under the [place] unit/mL 00 skin 3 Medical injection (three) Branch times daily before meals. Insulin 2019-0 Yes [id number] 18U inject Uni vers Glargine 5-10 18-24 ity of 100 unit/mL 00:00: Units [place] (3 mL) 00 under the Medical injection skin every Bran ch morning. insulin 2019-0 Yes [id number] 4U inject 4 U nivers lispro, 5-10 Units ity of human, 100 00:00: under the [place] unit/mL 00 skin 3 Medical injection (three) Branch times daily before meals. insulin 2019-0 Yes [id number] 4U inject 4 U nivers lispro, 5-10 Units ity of human, 100 00:00: under the [place] unit/mL 00 skin 3 Medical injection (three) Branch times daily before meals. insulin 2019-0 Yes [id number] 4U inject 4 U nivers lispro, 5-10 Units ity of human, 100 00:00: under the [place] unit/mL 00 skin 3 Medical injection (three) Branch times daily before meals. insulin 2019-0 Yes [id number] 4U inject 4 U nivers lispro, 5-10 Units ity of human, 100 00:00: under the [place] unit/mL 00 skin 3 Medical injection (three) Branch times daily before meals. insulin 2019-0 Yes [id number] 4U inject 4 U nivers lispro, 5-10 Units ity of human, 100 00:00: under the [place] unit/mL 00 skin 3 Medical injection (three) Branch times daily before meals. insulin 2019- No [id number] 4U inject 4 Univers lispro, 5-10 05-07 Units ity of human, 100 00:00: 00:00 under the [place] unit/mL 00 :00 skin 3 Medical injection (three) Branch times daily before meals. insulin 2019- No [id number] 4U inject 4 Univers lispro, 5-10 05-07 Units ity of human, 100 00:00: 00:00 under the [place] unit/mL 00 :00 skin 3 Medical injection (three) Branch times daily before meals. Insulin 2018- No [id number] 18U inject Un mel Glargine 5-10 09-11 18-24 ity of 100 unit/mL 00:00: 00:00 Units [place] (3 mL) 00 :00 under the Medical injection skin every Bran ch morning. OLANZapine Yes TAKE 1 Metho di (ZYPREXA) 5-[address] 2.5 MG 00:00: MOUTH ONCE Hospi ta tablet 00 DAILY AT l NIGHT folic Yes Take by Univers acid/vit B 3-08 mouth. ity of complex and 16:39: [place] C ( 29 [facility] COMPLEX-VIT Branch RAZA C-FOLIC ACID ORAL) potassium Yes 20meq Take 20 Univ ers chloride 20 3-08 mEq by ity of mEq packet 16:39: mouth [place] 29 daily. Medical Branch folic Yes Take by Univers acid/vit B 3-08 mouth. ity of complex and 16:39: [place] C (B 29 [facility] COMPLEX-VIT Branch RAZA C-FOLIC ACID ORAL) potassium Yes 20meq Take 20 Univ ers chloride 20 3-08 mEq by ity of mEq packet 16:39: mouth [place] 29 daily. Medical Branch acetaminoph No Esteban Campos 1 tab, M emoria en-hydrocod 4-21 [place] Route: PO, l one 325 16:50: Drug Form: Herm sana mg-5 mg 00 TAB, Q4H, oral tablet PRN Pain, Start date: 03/06/13 11:50:00, Duration: 30 day, Stop date: 04/05/13 11:49:00 Bactroban 2012-0 No Esteban G 1 appl, Me moria 4-20 [place] Route: l 17:00: TOP, [place] 00 Daily, Drug form: OINT, Start date: 03/05/13 12:00:00, Duration: 30 day, Stop date: 04/04/13 9:00:00 Aricept 2012-0 No Esteban G 5 mg, 1 Manjit greg 4-19 [place] tab, l 14:00: Route: PO, [place] Drug form: TAB, QAM, Start date: 03/04/13 9:00:00, Duration: 30 day, Stop date: 04/02/13 9:00:00 Lipitor 2012-0 No Esteban G 20 mg, 1 Mem oria 4-19 [place] tab, l 14:00: Route: PO, [place] Drug form: TAB, QAM, Start date: 03/04/13 9:00:00, Duration: 30 day, Stop date: 04/02/13 9:00:00 Amaryl 2012-0 No Esteban G 1 mg, 1 Memor ia 4-19 [place] tab, l 14:00: Route: PO, [place] 00 Drug form: TAB, Daily, Start date: 03/04/13 9:00:00, Duration: 30 day, Stop date: 04/02/13 9:00:00 hydrochloro 2012-0 No Esteban G 12.5 mg, Memoria thiazide 25 4-19 [place] 0.5 tab, l mg oral 14:00: Route: PO, Herm sana tablet 00 Drug form: TAB, QAM, Start date: 03/04/13 9:00:00, Duration: 30 day, Stop date: 04/02/13 9:00:00 Prinivil 2013-0 No Esteban G 40 mg, 2 Me moria 4-19 [place] tab, l 14:00: Route: PO, [place] 00 Drug form: TAB, QAM, Start date: 03/04/13 9:00:00, Duration: 30 day, Stop date: 04/02/13 9:00:00 Namenda 2013-0 No Esteban G 10 mg, 1 Mem oria 4-18 [place] tab, l 22:00: Route: PO, [place] 00 Drug form: TAB, BID, Start date: 03/03/13 17:00:00, Duration: 30 day, Stop date: 04/02/13 9:00:00 Lyrica 2012-0 No Esteban G 100 mg, 2 Mem oria 4-18 [place] cap, l 22:00: Route: PO, Drug form: CAP, TID, Start date: 03/03/13 17:00:00, Duration: 30 day, Stop date: 04/02/13 13:00:00 Mobic 2012-0 No Esteban G 7.5 mg, 1 Manjit greg 4-18 [place] tab, l 22:00: Route: PO, Drug form: TAB, BID, Start date: 03/03/13 17:00:00, Duration: 30 day, Stop date: 04/02/13 9:00:00 Robaxin 2012-0 No Esteban G 750 mg, 1 Me moria 4-18 [place] tab, l 22:00: Route: PO, Drug form: TAB, TID, Start date: 03/03/13 17:00:00, Duration: 30 day, Stop date: 04/02/13 13:00:00 Dextrose 5% 2012- No Esteban G 1,000 mL, Memoria with 0.45% 4-18 [place] Rate: 75 l NaCl IV 20:00: ml/hr, [place] 1,000 mL 00 Infuse over: 13.3 hr, Route: IV, kg, Total Volume: 1,000, Start date: 03/03/13 15:00:00, Stop date: 04/02/13 14:59:00 glucagon 2012-0 No Esteban G 1 mg, Memor ia 4-18 [place] Route: IV, l 19:52: Drug form: [place] 00 PDR/INJ, PRN, PRN Blood Glucose Results, Start date: 03/03/13 14:52:00, Duration: 30 day, Stop date: 04/02/13 14:51:00 Dextrose 2012- No Esteban G 50 mL, Manjit greg 50% in 4-18 [place] Route: l Water IV 19:52: IVP, Start Her ricci 00 date: 03/03/13 14:52:00, Duration: 30 day, Stop date: 04/02/13 14:51:00, PRN Blood Glucose Results NovoLog 2012- No Esteban G 5 unit, Manjit greg FlexPen 4-18 [place] 0.05 mL, l 19:52: Route: [place] 00 SUB-Q, Drug form: SOLN, Sliding Scale, PRN Blood Glucose Results, Start date: 03/03/13 14:52:00, Duration: 30 day, Stop date: 04/02/13 14:51:00 Sodium 2012- No Esteban G 250 mL, Memor ia Chloride 4-18 [place] Route: l 0.9% IV 18:34: IVPB, [place] 00 Start date: 03/03/13 13:34:00, Duration: 30 day, Stop date: 04/02/13 13:33:00, PRN Line Flush BD Normal 2012- No Esteban G 10 mL, Mem oria Saline 4-18 [place] Route: l Flush 18:34: IVP, Drug Form: INJ, PRN, PRN Line Flush, Start date: 03/03/13 13:34:00, Duration: 30 day, Stop date: 04/02/13 13:33:00 morphine 2012- No Esteban G 2 mg, 1 Mem oria Sulfate 4-18 [place] mL, Route: l 18:34: IV, Drug form: INJ, Q1H, PRN Pain, Start date: 03/03/13 13:34:00, Duration: 30 day, Stop date: 04/02/13 13:33:00 Zofran 2012- No Esteban G 4 mg, Memoria 4-18 [place] Route: l 15:49: IVP, Drug form: INJ, ONCE, Dosing Weight 87.8, kg, Start date: 03/03/13 10:49:00, Stop date: 03/03/13 10:49:00 fentanyl 2012-0 No Esteban G 25 Memori a 4-18 [place] microgram, l 15:48: Route: [place] 00 IVP, ONCE, Dosing Weight 87.8, kg, Start date: 03/03/13 10:48:00, Stop date: 03/03/13 10:48:00 acetaminoph 2012- No Esteban G 1,000 mg, Memoria en 10 mg/mL 4-18 [place] Route: IV, l intravenous 15:12: Drug form: [place] solution 00 INJ, ONCE, Dosing Weight 87.8, kg, For > or = 50 kg, Start date: 03/03/13 10:12:00, Stop date: 03/03/13 10:12:00 hydromorpho 2012- No Esteban G 0.5 mg, Memoria ne 4-18 [place] Route: IV, l 15:12: ONCE, [place] 00 Dosing Weight 87.8, kg, Start date: 03/03/13 10:12:00, Stop date: 03/03/13 10:12:00 Potassium Potassium Yes Anneliese 1 capsule Common Chloride Chloride Millender with food [facility] Tylenol # 3 Tylenol # 3 Yes Anneliese one tab Common Millender [facility] Vitamin D-3 Vitamin D-3 Yes Anneliese 2 capsule Common Millender [facility] Humalog Humalog Yes Anneliese as Common Millender directed [facility] Aspir-Low Aspir-Low Yes Anneliese 1 tablet Common Millender [facility] Namzaric Namzaric Yes Anneliese 1 Common Millender [facility] Zyprexa Zyprexa Yes Anneliese 1 tablet Comm on [facility] Vitamin B-1 Vitamin B-1 Yes Anneliese 1 tablet Common Millender [facility] Multivitami Multivitami Yes Anneliese as Common n n Millender directed [facility] Lantus Lantus Yes Anneliese as Common Millender directed [facility] Lasix Lasix Yes Anneliese 1 tablet Common Millender [facility] Isosorbide Isosorbide Yes Anneliese 1 tablet Common Mononitrate Mononitrate Millender in the [facility] Lyrica Lyrica Yes Anneliese 1 capsule Commo n Millender [facility] Immunizations Ordered Filled Immunization Date Status Comments [facility] e Immunization Name Name SARS-COV-2 COVID-19 2021-09-16 Completed Unive rsity of MODERNA VACCINE 00:00:00 [facility] SARS-COV-2 COVID-19 2021-09-16 Completed Unive rsity of MODERNA VACCINE 00:00:00 [facility] SARS-COV-2 COVID-19 2021-09-16 Completed Unive rsity of MODERNA VACCINE 00:00:00 [facility] Branch SARS-COV-2 COVID-19 2021-09-16 Completed Unive rsity of MODERNA VACCINE 00:00:00 [facility] SARS-COV-2 COVID-19 2021-09-16 Completed Unive rsity of MODERNA VACCINE 00:00:00 [facility] Branch SARS-COV-2 COVID-19 2021-09-16 Completed Unive rsity of MODERNA VACCINE 00:00:00 [facility] Branch SARS-COV-2 COVID-19 2021-09-16 Completed Unive rsity of MODERNA VACCINE 00:00:00 [facility] Branch SARS-COV-2 COVID-19 2021-09-16 Completed Unive rsity of MODERNA VACCINE 00:00:00 [facility] Branch SARS-COV-2 COVID-19 2021-09-16 Completed Unive rsity of MODERNA VACCINE 00:00:00 [facility] [place] [facility] SARS-COV-2 COVID-19 2021-08-17 Completed Unive rsity of MODERNA VACCINE 00:00:00 [facility] Branch Influenza High Dose 2021-08-17 Completed Unive rsity of 00:00:00 [facility] Branch SARS-COV-2 COVID-19 2021-08-17 Completed Unive rsity of MODERNA VACCINE 00:00:00 [facility] Branch Influenza High Dose 2021-08-17 Completed Unive rsity of 00:00:00 [facility] Branch SARS-COV-2 COVID-19 2021-08-17 Completed Unive rsity of MODERNA VACCINE 00:00:00 [facility] Branch Influenza High Dose 2021-08-17 Completed Unive rsity of 00:00:00 [facility] SARS-COV-2 COVID-19 2021-08-17 Completed Unive rsity of MODERNA VACCINE 00:00:00 [facility] [place] [facility] Influenza High Dose 2021-08-17 Completed Unive rsity of 00:00:00 [facility] SARS-COV-2 COVID-19 2021-08-17 Completed Unive rsity of MODERNA VACCINE 00:00:00 [facility] [place] [facility] Influenza High Dose 2021-08-17 Completed Unive rsity of 00:00:00 [facility] SARS-COV-2 COVID-19 2021-08-17 Completed Unive rsity of MODERNA VACCINE 00:00:00 [facility] [place] [facility] Influenza High Dose 2021-08-17 Completed Unive rsity of 00:00:00 [facility] SARS-COV-2 COVID-19 2021-08-17 Completed Unive rsity of MODERNA VACCINE 00:00:00 [facility] [place] [facility] Influenza High Dose 2021-08-17 Completed Unive rsity of 00:00:00 [facility] SARS-COV-2 COVID-19 2021-08-17 Completed Unive rsity of MODERNA VACCINE 00:00:00 [facility] [place] [facility] Influenza High Dose 2021-08-17 Completed Unive rsity of 00:00:00 [facility] SARS-COV-2 COVID-19 2021-08-17 Completed Unive rsity of MODERNA VACCINE 00:00:00 [facility] [place] [facility] Influenza High Dose 2021-08-17 Completed Unive rsity of 00:00:00 [facility] Zoster(Zostavax)( 2020-09-14 Completed Unive rsity of ingles) 00:00:00 [facility] Branch Zoster(Zostavax)( 2020-09-14 Completed Unive rsity of ingles) 00:00:00 [facility] Zoster(Zostavax)( 2020-09-14 Completed Unive rsity of ingles) 00:00:00 [facility] Zoster(Zostavax)( 2020-09-14 Completed Unive rsity of ingles) 00:00:00 [facility] Zoster(Zostavax)( 2020-09-14 Completed Unive rsity of ingles) 00:00:00 [facility] Zoster(Zostavax)( 2020-09-14 Completed Unive rsity of ingles) 00:00:00 [place] [facility] Zoster(Zostavax)( 2020-09-14 Completed Unive rsity of ingles) 00:00:00 [facility] Zoster(Zostavax)( 2020-09-14 Completed Unive rsity of ingles) 00:00:00 [facility] Zoster(Zostavax)( 2020-09-14 Completed Unive rsity of ingles) 00:00:00 [facility] Influenza High Dose 2020-07-13 Completed Unive rsity of 00:00:00 [facility] Influenza High Dose 2020-07-13 Completed Unive rsity of 00:00:00 [facility] Influenza High Dose 2020-07-13 Completed Unive rsity of 00:00:00 [facility] Influenza High Dose 2020-07-13 Completed Unive rsity of 00:00:00 [facility] Influenza High Dose 2020-07-13 Completed Unive rsity of 00:00:00 [facility] Influenza High Dose 2020-07-13 Completed Unive rsity of 00:00:00 [facility] Influenza High Dose 2020-07-13 Completed Unive rsity of 00:00:00 [facility] Influenza High Dose 2020-07-13 Completed Unive rsity of 00:00:00 [facility] Influenza High Dose 2020-07-13 Completed Unive rsity of 00:00:00 [facility] Influenza High Dose 2019-09-15 Completed Unive rsity of 00:00:00 [facility] Influenza High Dose 2019-09-15 Completed Unive rsity of 00:00:00 [facility] Influenza High Dose 2019-09-15 Completed Unive rsity of 00:00:00 [facility] Influenza High Dose 2019-09-15 Completed Unive rsity of 00:00:00 [facility] Influenza High Dose 2019-09-15 Completed Unive rsity of 00:00:00 [facility] Influenza High Dose 2019-09-15 Completed Unive rsity of 00:00:00 [facility] Influenza High Dose 2019-09-15 Completed Unive rsity of 00:00:00 [facility] Influenza High Dose 2019-09-15 Completed Unive rsity of 00:00:00 [facility] Influenza High Dose 2019-09-15 Completed Unive rsity of 00:00:00 [facility] Influenza Virus 2018-09-09 Completed Universit y of Vaccine 00:00:00 [facility] Influenza Virus 2018-09-09 Completed Universit y of Vaccine 00:00:00 [facility] Influenza Virus 2018-09-09 Completed Universit y of Vaccine 00:00:00 [facility] Influenza Virus 2018-09-09 Completed Universit y of Vaccine 00:00:00 [facility] Influenza Virus 2018-09-09 Completed Universit y of Vaccine 00:00:00 [facility] Influenza Virus 2018-09-09 Completed Universit y of Vaccine 00:00:00 [facility] Influenza Virus 2018-09-09 Completed Universit y of Vaccine 00:00:00 [facility] Influenza Virus 2018-09-09 Completed Universit y of Vaccine 00:00:00 [facility] Influenza Virus 2018-09-09 Completed Universit y of Vaccine 00:00:00 [facility] Influenza Virus 2018-09-09 Completed Universit y of Vaccine 00:00:00 [facility] Influenza Virus 2018-09-09 Completed Universit y of Vaccine 00:00:00 [facility] Influenza Virus 2018-09-09 Completed Universit y of Vaccine 00:00:00 [facility] Influenza Virus 2018-09-09 Completed Universit y of Vaccine 00:00:00 [facility] Influenza Virus 2018-09-09 Completed Universit y of Vaccine 00:00:00 [facility] Influenza Virus 2018-09-09 Completed Universit y of Vaccine 00:00:00 [facility] Influenza Virus 2018-09-09 Completed Universit y of Vaccine 00:00:00 [facility] Influenza Virus 2018-09-09 Completed Universit y of Vaccine 00:00:00 [facility] Influenza Virus 2018-09-09 Completed Universit y of Vaccine 00:00:00 [facility] Influenza Virus 2018-09-09 Completed Universit y of Vaccine 00:00:00 [facility] Influenza Virus 2018-09-09 Completed Universit y of Vaccine 00:00:00 [facility] Influenza Virus 2018-09-09 Completed Universit y of Vaccine 00:00:00 [facility] Influenza Virus 2018-09-09 Completed Universit y of Vaccine 00:00:00 [facility] Influenza Virus 2018-09-09 Completed Universit y of Vaccine 00:00:00 [facility] Influenza Virus 2018-09-09 Completed Universit y of Vaccine 00:00:00 [facility] [facility] Influ[facility] Virus 2018-09-09 Completed [facility] Vaccine 00:00:00 [facility] Influenza Virus 2018-09-09 Completed [facility] Vaccine 00:00:00 [facility] Influenza Virus 2018-09-09 Completed [facility] Vaccine 00:00:00 [facility] Pneumococcal 2016-11-02 Completed University o [...] Time Observation Value Comments Source Systolic blood 2022-06-10 16:54:00 125 mm[Hg] Univer sity of pressure [facility] Diastolic blood 2022-06-10 16:54:00 74 mm[Hg] [facility] 2022-06-10 16:54:00 81 /min [facility] Body temperature 2022-06-10 16:54:00 36.67 Priyanka [facility] Respiratory rate 2022-06-10 16:54:00 18 /min [facility] Oxygen saturation in 2022-06-10 16:54:00 98 /min University of Arterial blood by [place] [facility] Pulse oximetry [facility] Body weight 2022-06-10 09:07:00 61.462 kg [facility] BMI 2022-06-10 09:07:00 21.22 kg/m2 [facility] Body height 2022-06-03 14:44:00 170.2 cm [facility] Systolic blood 2022-05-31 16:18:00 123 mm[Hg] Univer sity of pressure [facility] Diastolic blood 2022-05-31 16:18:00 74 mm[Hg] Unive rsity of pressure [facility] Heart rate 2022-05-31 16:18:00 92 /min [facility] Body temperature 2022-05-31 16:18:00 36.78 Priyanka [facility] Respiratory rate 2022-05-31 16:18:00 18 /min [facility] Oxygen saturation in 2022-05-31 16:18:00 93 /min [facility] Arterial blood by [place] [facility] P[facility] oxim[facility] Body weight 2022-05-30 08:33:00 53.978 kg [facility] BMI 2022-05-30 08:33:00 18.63 kg/m2 [facility] Body height 2022-05-24 20:10:00 170.2 cm [facility] Systolic blood 2022-04-17 03:35:00 110 mm[Hg] Univer [facility]ity [facility] Diastolic blood 2022-04-17 03:35:00 77 mm[Hg] Unive rsity of pressure [facility] Heart rate 2022-04-17 03:35:00 98 /min [facility] Oxygen saturation in 2022-04-17 03:35:00 99 /min [facility] Arterial blood by [facility] Pulse oximetry Branch Body temperature 2022-04-17 03:25:00 37.33 Priyanka [facility] Respiratory rate 2022-04-17 03:25:00 18 /min [facility] Body height 2022-04-17 03:25:00 170.2 cm [facility] Body weight 2022-04-17 03:25:00 77.111 kg [facility] BMI 2022-04-17 03:25:00 26.63 kg/m2 [facility] Systolic blood 2022-03-01 16:36:00 143 mm[Hg] [facility]iver [facility]ity [facility] Diastolic blood 2022-03-01 16:36:00 80 mm[Hg] Unive rsity of pressure [facility] Heart rate 2022-03-01 16:36:00 98 /min [facility] Respiratory rate 2022-03-01 16:36:00 16 /min [facility] Oxygen saturation in 2022-03-01 16:36:00 97 /min [facility] Arterial blood by [place] [facility] Pulse oxim[facility] Body temperature 2022-03-01 11:42:00 36.94 Priyanka [facility] Body height 2022-03-01 11:42:00 170.2 cm [facility] Body weight 2022-03-01 11:42:00 77.111 kg [facility] BMI 2022-03-01 11:42:00 26.63 kg/m2 [facility] Systolic blood 2021-11-02 17:17:00 109 mm[Hg] [facility] Diastolic blood 2021-11-02 17:17:00 67 mm[Hg] Unive rsity of pressure [facility] Heart rate 2021-11-02 17:17:00 84 /min [facility] Body temperature 2021-11-02 17:17:00 36.44 Priyanka [facility] Respiratory rate 2021-11-02 17:17:00 18 /min [facility] Oxygen saturation in 2021-11-02 17:17:00 95 /min [facility] Arterial blood by [employer] Pulse oximetry Branch Body weight 2021-11-02 09:17:00 79.969 kg [facility] BMI 2021-11-02 09:17:00 27.61 kg/m2 [facility] Body height 2021-10-31 05:46:00 170.2 cm [facility] Systolic blood 2021-04-25 22:36:00 118 mm[Hg] [facility] Diastolic blood 2021-04-25 22:36:00 70 mm[Hg] Unive rsity of pressure [facility] Heart rate 2021-04-25 22:36:00 68 /min [facility] Respiratory rate 2021-04-25 22:36:00 18 /min [facility] Oxygen saturation in 2021-04-25 22:36:00 99 /min [facility] Arterial blood by [facility] [employer] P[facility] oxim[facility] Branch Body temperature 2021-04-25 15:42:00 [...] 98 /min [facility] Arterial blood by [facility] [employer] Pulse oximetry Branch Heart rate 2020-06-26 08:56:00 [...] 98 /min [facility] Arterial blood by [facility] Pulse oximetry Branch Heart rate 2020-06-26 [...] 97 /min [facility] Arterial blood by [facility] Pulse oximetry Branch Body temperature 2020-05-24 [...] 97 /min [facility] Arterial blood by [facility] Pulse oximetry Branch Body temperature 2020-05-24 [...] 97 /min [facility] Arterial blood by [facility] Pulse oximetry Branch Systolic blood 2020-03-23 [...] 99 /min [facility] Arterial blood by [facility] Pulse oximetry Branch Body weight 2020-03-23 [...] /min [facility] Arterial blood by [place] [facility]xim[facility] Body temperature 2020-03-21 [...] 95 /min [facility] Arterial blood by [facility] Pulse oximetry Branch Body height 2020-03-05 [...] /min [facility] Arterial blood by [place] [facility] P[facility] oxim[facility] Body height 2020-03-01 00:54:00 170.2 cm [facility] Body weight 2020-03-01 00:54:00 76.975 kg Universi ty [facility] BMI 2020-03-01 00:54:00 26.58 kg/m2 Universi ty [facility] Systolic blood 2020-01-17 21:08:00 116 mm[Hg] Univer sity of pressure [facility] Diastolic blood 2020-01-17 21:08:00 78 mm[Hg] Unive rsity of pressure [facility] Heart rate 2020-01-17 21:08:00 88 /min Universi ty [facility] Body temperature 2020-01-17 21:08:00 36.72 [facility]yanka [facility] Respiratory rate 2020-01-17 21:08:00 18 /[facility] in 2020-01-17 21:08:00 98 /min [facility] Arterial blood by [facility] Pulse oximetry Branch Body height 2020-01-16 06:21:00 172.7 cm Universi ty [facility] Body weight 2020-01-16 04:35:00 83.462 kg Universi ty [facility] BMI 2020-01-16 04:35:00 27.98 kg/m2 Universi [facility] Heart Rate 2022-03-10 21:29:55 [facility] Respitory Rate 2022-03-10 21:29:55 [facility] [place] Systolic (mm Hg) 2022-03-10 21:29:46 [facility]jit [facility] [place] Diastolic (mm Hg) 2022-03-10 21:29:46 [facility] [place] Heart Rate 2022-03-10 21:29:46 [facility] Temperature Oral (F) 2022-03-10 21:29:23 98.4 F [facility] [place] Heart Rate 2022-03-10 17:19:36 [facility] [place] Respitory Rate 2022-03-10 17:19:36 [facility] [place] Systolic (mm Hg) 2022-03-10 17:19:27 Manjit [facility] [place] Diastolic (mm Hg) 2022-03-10 17:19:27 [facility] [place] Temperature Oral (F) 2022-03-10 17:19:27 98.4 F [facility] [place] Systolic (mm Hg) 2022-03-10 13:15:26 Manjit [facility] [place] Diastolic (mm Hg) 2022-03-10 13:15:26 Mem [facility] [place] Temperature Oral (F) 2022-03-10 13:14:53 98.3 F [facility] [place] Respitory Rate 2022-03-10 10:10:43 [facility] Heart Rate 2022-03-10 03:45:00 [facility] Respitory Rate 2022-03-10 03:45:00 [facility] Temperature Oral (F) 2022-03-10 03:44:50 97.9 F [facility] [place] Systolic (mm Hg) 2022-03-10 03:44:47 Manjit [facility] Diastolic (mm Hg) 2022-03-10 03:44:47 [facility] [place] Heart Rate 2022-03-10 03:44:47 [facility] [place] Heart Rate 2022-03-10 00:45:38 [facility] [place] Respitory Rate 2022-03-10 00:45:38 [facility] [place] Systolic (mm Hg) 2022-03-10 00:45:34 Manjit [facility] Diastolic (mm Hg) 2022-03-10 00:45:34 [facility] Temperature Oral (F) 2022-03-10 00:45:01 98.2 F [facility] Temperature Oral (F) 2022-03-09 21:31:00 98.6 F [facility] Systolic (mm Hg) 2022-03-09 21:30:45 Manjit rial [facility] Diastolic (mm Hg) 2022-03-09 21:30:45 [facility] [place] Respitory Rate 2022-03-09 09:27:14 [facility] [place] Height 2022-03-05 11:53:00 170.18 cm [facility] Weight 2022-03-05 11:53:00 [facility] [place] BMI Calculated 2022-03-05 11:53:00 [facility] [place] Systolic blood 2021-12-25 17:15:32 115 mm[Hg] [facility] Diastolic blood 2021-12-25 17:15:32 89 mm[Hg] [facility] Heart rate 2021-12-25 17:15:32 89 /min [facility] Body temperature 2021-12-25 17:15:32 36.33 Priyanka [facility] Respiratory rate 2021-12-25 17:15:32 18 /min [facility] Oxygen saturation in 2021-12-25 17:15:32 96 /min [facility] Arterial blood by Pulse oximetry Body weight 2021-12-25 10:05:43 73.347 kg [facility] BMI 2021-12-25 10:05:43 25.33 kg/m2 [facility] Body height 2021-12-20 12:37:00 170.2 cm [facility] Temperature Oral (F) 2013-03-07 13:44:00 98.7 F [facility] Heart Rate 2013-03-07 13:44:00 [facility] [place] Respitory Rate 2013-03-07 13:44:00 [facility] [place] Systolic (mm Hg) 2013-03-07 13:44:00 Manjit [facility] [place] Diastolic (mm Hg) 2013-03-07 13:44:00 Mem [facility] [place] Heart Rate 2013-03-07 09:00:00 [facility] Temperature Oral (F) 2013-03-07 09:00:00 98.1 F [facility] [place] Diastolic (mm Hg) 2013-03-07 09:00:00 [facility] [place] Systolic (mm Hg) 2013-03-07 09:00:00 Manjit [facility] Respitory Rate 2013-03-07 09:00:00 [facility] [place] Diastolic (mm Hg) 2013-03-07 05:00:00 [facility] Systolic (mm Hg) 2013-03-07 05:00:00 Manjit [facility] Heart Rate 2013-03-07 05:00:00 [facility] Temperature Oral (F) 2013-03-07 05:00:00 98.1 F [facility] Respitory Rate 2013-03-07 05:00:00 [facility] Weight 2013-03-03 18:18:00 [facility] Height 2013-03-03 18:18:00 172.72 cm [facility] Height 2013-03-03 18:13:00 172.72 cm [facility] Weight 2013-03-03 18:13:00 [facility] Weight 2013-03-03 11:00:00 [facility] Height 2013-03-03 11:00:[address] [facility] Height 2013-02-03 14:49:[address] [facility] Weight 2013-02-03 14:49:00 [facility] Procedures Procedure Date / Time Performing Clinician Source Performed COVID-19 (ID NOW RAPID 2022-06-10 17:55:00 Sridhar Gordon [facility]) [facility] POCT GLUCOSE (AUTOMATED) 2022-06-10 16:45:00 Eve Rae [facility] POCT GLUCOSE (AUTOMATED) 2022-06-10 16:43:00 [facility] 2022-06-10 12:55:00 Eve Rae [facility] POCT GLUCOSE (AUTOMATED) 2022-06-10 09:07:00 Eve Rae [facility] BASIC METABOLIC PANEL 2022-06-10 08:53:00 Lulu Harris [facility] (NA, K, CL, CO2, GLUCOSE, Medica l Branch BUN, CREATININE, CA) CBC WITH DIFF 2022-06-10 08:53:00 Steven [facility] N-TERMINAL PRO-BNP 2022-06-10 08:53:00 Lulu Harris [facility] POCT GLUCOSE (AUTOMATED) 2022-06-10 05:08:00 Eve Rae [facility] POCT GLUCOSE (AUTOMATED) 2022-06-10 01:37:00 Eve Rae [facility] POCT GLUCOSE (AUTOMATED) 2022-06-09 21:52:00 Eve Rae [facility] POCT GLUCOSE (AUTOMATED) 2022-06-09 20:11:00 Eve Rae [facility] POCT GLUCOSE (AUTOMATED) 2022-06-09 16:51:00 [facility] 2022-06-09 12:47:00 Eve Rae [facility] PHOSPHORUS 2022-06-09 09:39:00 Lulu Harris [facility] MAGNESIUM 2022-06-09 [facility]:39[facility] 2022-06-09 09:39:00 [facility] (NA, K, CL, CO2, GLUCOSE, Medica l Branch BUN, CREATININE, CA) N-TERMINAL PRO-BNP 2022-06-09 09:39:00 Jenise Tang [facility] POCT GLUCOSE (AUTOMATED) 2022-06-09 09:37:00 [facility] ([facility]OM[facility]) 2022-06-09 05:09:00 [facility] ([facility]) 2022-06-09 01:04:00 Eve Rae [facility] POCT GLUCOSE (AUTOMATED) 2022-06-08 21:43:00 Eve Rae [facility] POCT GLUCOSE (AUTOMATED) 2022-06-08 16:58:00 Eve Rae [facility] PHOSPHORUS 2022-06-08 16:37:00 K[facility] MAGNESIUM 2022-06-08 [facility]:37:[facility] BASIC METABOLIC PANEL 2022-06-08 16:37:00 Steven Lulu [facility] (NA, K, CL, CO2, GLUCOSE, Medica l Branch BUN, CREATININE, CA) CBC WITH DIFF 2022-06-08 16:37:00 [facility] GLYCOSYLATED HEMOGLOBIN 2022-06-08 16:37:00 Steven [facility] N-TERMINAL PRO-BNP 2022-06-08 16:37:00 Alexandra Stephenson [facility] POCT GLUCOSE (AUTOMATED) 2022-06-08 12:44:00 Eve Rae [facility] POCT GLUCOSE (AUTOMATED) 2022-06-08 01:55:00 Eve Rae [facility] POCT GLUCOSE (AUTOMATED) 2022-06-07 21:47:[address] [facility] versity [facility] POCT GLUCOSE (AUTOMATED) 2022-06-07 16:49:00 Eve Rae [facility] POCT GLUCOSE (AUTOMATED) 2022-06-07 12:57:00 Eve Rae [facility] POCT GLUCOSE (AUTOMATED) 2022-06-07 02:37:00 Eve Rae [facility] POCT GLUCOSE (AUTOMATED) 2022-06-06 15:37:00 Eve Rae [facility] POCT GLUCOSE (AUTOMATED) 2022-06-06 13:02:00 Eve Rae [facility] MAGNESIUM 2022-06-06 09:19:00 Heidi [facility] BASIC METABOLIC PANEL 2022-06-06 09:19:00 [facility] (NA, K, CL, CO2, GLUCOSE, Medica l Branch BUN, CREATININE, CA) CBC WITH DIFF 2022-06-06 09:19:00 Heidi [facility] POCT GLUCOSE (AUTOMATED) 2022-06-06 01:53:00 Eve Rae [facility] POCT GLUCOSE (AUTOMATED) 2022-06-05 21:34:00 Eve Rae [facility] POCT GLUCOSE (AUTOMATED) 2022-06-05 17:17:00 Eve Rae [facility] N-TERMINAL PRO-BNP 2022-06-05 13:47:00 Alexandra Stephenson [facility] POCT GLUCOSE (AUTOMATED) 2022-06-05 13:01:00 Eve Rae [facility] POCT GLUCOSE (AUTOMATED) 2022-06-05 01:17:00 Eve Rae [facility] POCT GLUCOSE (AUTOMATED) 2022-06-04 21:49:00 Eve Rae [facility] TRANSTHORACIC ECHO (TTE) 2022-06-04 18:56:27 Eve Rae [facility] LIMITED W/ DOPPLER, COLOR Medica l Branch AND CONTRAST POCT GLUCOSE (AUTOMATED) 2022-06-04 17:15:00 Eve Rae [facility] TROPONIN I 2022-06-04 15:11:00 Julio Cesar [facility] BASIC METABOLIC PANEL 2022-06-04 15:11:00 Sarah Harrell [facility] (NA, K, CL, CO2, GLUCOSE, Medica l Branch BUN, CREATININE, CA) CT HEAD WO CONTRAST 2022-06-04 13:40:00 Sarah Harrell [facility] POCT GLUCOSE (AUTOMATED) 2022-06-04 13:10:00 Eve Rae [facility] TROPONIN I 2022-06-04 01:57:00 Eve Rae [facility] POCT GLUCOSE (AUTOMATED) 2022-06-03 23:23:00 Eve Rae [facility] CT HIP LEFT WO CONTRAST 2022-06-03 19:07:02 Singer [facility] URINALYSIS 2022-06-03 15:50:00 Singer [facility] HB ABO GROUPING 2022-06-03 15:42:00 Singer [facility] LACTIC ACID WHOLE BLOOD 2022-06-03 15:41:00 Singer [facility] PROTHROMBIN TIME / INR 2022-06-03 15:38:00 Singer Ric [facility] COVID-19 (ID NOW RAPID 2022-06-03 15:38:00 Ric Childers [facility] TESTING) Medical Branch LAB ONLY COVID 2022-06-03 15:38:[address] [facility] XR CHEST 1 VW 2022-06-03 15:10:00 Singer [facility] XR HIPS 3 VW LEFT 2022-06-03 15:10:00 Singer [facility] HB ECG ROUTINE & RHYTHM 2022-06-03 14:51:40 Singer [facility] STRIP [facility] LIPASE 2022-06-03 14:47:00 Singer [facility] MAGNESIUM 2022-06-03 14:47:00 Singer [facility] TROPONIN I 2022-06-03 14:47:00 Singer [facility] COMP. METABOLIC PANEL 2022-06-03 14:47:00 [facility] ([id number]) Medical Branch CBC WITH DIFF 2022-06-03 14:47:00 [facility] N-TERMINAL PRO-BNP 2022-06-03 14:47:00 Singer [facility] BASIC METABOLIC PANEL 2022-05-31 10:30:00 [facility] (NA, K, CL, CO2, GLUCOSE, Medica l Branch BUN, CREATININE, CA) TROPONIN I 2022-05-31 10:30:00 Alice [facility] COVID-19 (ID NOW RAPID 2022-05-30 21:43:00 [facility] Branch BASIC METABOLIC PANEL 2022-05-30 08:35:00 Db [facility] (NA, K, CL, CO2, GLUCOSE, Medica l Branch BUN, CREATININE, CA) BASIC METABOLIC PANEL 2022-05-29 09:12:00 Db [facility] (NA, K, CL, CO2, GLUCOSE, Medica l Branch BUN, CREATININE, CA) N-TERMINAL PRO-BNP 2022-05-29 09:12:00 Winston Ace [facility] CBC WITH DIFF 2022-05-28 07:54:00 Yamel [facility] BASIC METABOLIC PANEL 2022-05-27 10:11:00 [facility] (NA, K, CL, CO2, GLUCOSE, Medica l Branch BUN, CREATININE, CA) N-TERMINAL PRO-BNP 2022-05-27 10:11:00 [facility] MAGNESIUM 2022-05-26 16:16:00 [facility] BASIC METABOLIC PANEL 2022-05-26 16:16:00 [facility] (NA, K, CL, CO2, GLUCOSE, Medica l Branch BUN, CREATININE, CA) TRANSTHORACIC ECHO (TTE) 2022-05-26 14:47:08 Sonny Garcia [facility] COMPLETE W/ CONTRAST Medical [facility] D-DIMER 2022-05-25 19:54:00 Steve Goodwin [facility] Te[facility] TROPONIN I 2022-05-25 13:57:00 Sonny Garcia [facility] BASIC METABOLIC PANEL 2022-05-25 13:57:00 Sonny Garcia [facility] (NA, K, CL, CO2, GLUCOSE, Medica l Branch BUN, CREATININE, CA) POCT GLUCOSE (AUTOMATED) 2022-05-24 16:03:00 Jack Parisi [facility] CT ANGIOGRAM CHEST 2022-05-24 06:48:00 Davis Fam [facility] CT ANGIOGRAM 2022-05-24 06:48:00 Davis Fam [facility] ABDOMEN/PELVIS [facility] [place] URINALYSIS 2022-05-24 06:13:00 Davis Fam [facility] XR HIPS 2 VW LEFT 2022-05-24 04:45:00 Davis Fam [facility] XR CHEST 1 VW 2022-05-24 04:44:00 Davis Fam [facility] COVID-19 (ID NOW RAPID 2022-05-24 04:28:00 Davis Fam [facility] TESTING) Medical Branch LAB ONLY COVID 2022-05-24 04:28:00 Davis Fam [facility] INTERPRETATION [facility] TROPONIN I 2022-05-24 04:22:00 Davis Fam [facility] COMP. METABOLIC PANEL 2022-05-24 04:22:00 Davis Fam [facility] ([id number]) Medical Branch CBC WITH DIFF 2022-05-24 04:22:00 Davis Fam [facility] N-TERMINAL PRO-BNP 2022-05-24 04:22:00 Kina Naranjo [facility] EKG-12 LEAD 2022-05-24 04:02:12 Davis Fam [facility] CONSENT/REFUSAL FOR 2022-04-17 03:07:20 Doctor Unassigned, Petra [facility] DIAGNOSIS AND TREATMENT [place] [facility] XR LUMBAR SPINE 2 VW 2022-03-01 14:18:00 Angelika Aguilar [facility] POC GLUCOSE 2021-12-25 17:17:00 [facility] CV CARDIAC PET VIABILITY 2021-12-25 16:48:27 Jono Costello [facility] ASSESSMENT ONLY POC GLUCOSE 2021-12-25 16:13:00 [facility] POC GLUCOSE 2021-12-25 15:17:00 [facility] POC GLUCOSE 2021-12-25 14:36:00 [facility] POC GLUCOSE 2021-12-25 14:01:00 [facility] POC GLUCOSE 2021-12-25 13:17:00 [facility] HC COMPLETE BLD COUNT 2021-12-25 10:11:00 [facility] W/AUTO DIFF [place] BASIC METABOLIC PANEL 2021-12-25 10:11:00 [facility] MAGNESIUM LEVEL 2021-12-25 10:11:00 [facility] [place] PHOSPHORUS LEVEL 2021-12-25 10:11:[address] [facility] ESTIMATED GFR 2021-12-25 10:11:00 [facility] POC GLUCOSE 2021-12-25 10:08:00 [facility] POC GLUCOSE 2021-12-25 05:58:00 [facility] POC GLUCOSE 2021-12-25 04:37:00 [facility] POC GLUCOSE 2021-12-25 00:59:00 [facility] POC GLUCOSE 2021-12-24 19:03:00 [facility] POC GLUCOSE 2021-12-24 14:07:00 [facility] BASIC METABOLIC PANEL 2021-12-24 10:06:00 James Acosta [facility] MAGNESIUM LEVEL 2021-12-24 10:06:00 James Acosta spital ESTIMATED GFR 2021-12-24 10:06:00 [facility] HEMOGRAM 2021-12-24 10:00:00 James Acosta spital POC GLUCOSE 2021-12-24 03:17:00 [facility] 2021-12-24 00:27:00 [facility] POC GLUCOSE 2021-12-23 21:03:00 [facility] ECG 12-LEAD 2021-12-23 20:14:21 James Acosta spital TROPONIN T 2021-12-23 17:08:00 James Acosta spital POC GLUCOSE 2021-12-23 14:06:00 [facility] CBC HEMOGRAM 2021-12-23 09:53:00 [facility] BASIC METABOLIC PANEL 2021-12-23 09:53:00 James Acosta [facility] MAGNESIUM LEVEL 2021-12-23 09:53:00 James Acosta spital ESTIMATED GFR 2021-12-23 09:53:00 James Acosta spital POC GLUCOSE 2021-12-23 03:23:00 [facility] POC GLUCOSE 2021-12-22 23:44:00 [facility] POC GLUCOSE 2021-12-22 17:52:00 [facility] POC GLUCOSE 2021-12-22 13:58:00 [facility] HC COMPLETE BLD COUNT 2021-12-22 11:03:00 [facility] W/AUTO DIFF BASIC METABOLIC PANEL 2021-12-22 11:03:00 [facility] ESTIMATED GFR 2021-12-22 11:03:00 [facility] POC GLUCOSE 2021-12-22 05:06:00 [facility] POC GLUCOSE 2021-12-22 00:05:00 [facility] POC GLUCOSE 2021-12-21 18:26:00 [facility] POC GLUCOSE 2021-12-21 14:02:00 [facility] ECG 12-LEAD 2021-12-21 13:37:23 [facility] HC COMPLETE BLD COUNT 2021-12-21 06:25:00 [facility] W/AUTO DIFF BASIC METABOLIC PANEL 2021-12-21 06:25:00 [facility] ESTIMATED GFR 2021-12-21 06:25:00 [facility] POC GLUCOSE 2021-12-21 03:00:00 [facility] POC GLUCOSE 2021-12-20 23:08:00 [facility] TTE COMPLETE, W CONTRAST, 2021-12-20 20:40:00 [facility] W DOPPLER ([id number]) POC GLUCOSE 2021-12-20 19:45:00 [facility] CV CARDIAC PET STRESS 2021-12-20 18:04:26 [facility]AC PET MYOCARDIAL 2021-12-20 18:04:[address] [facility] PERFUSION IMAGING ANTI XA, UNFRACTIONATED 2021-12-20 16:44:00 [facility] BASIC METABOLIC PANEL 2021-12-20 10:13:00 [facility] PARTIAL THROMBOPLASTIN 2021-12-20 10:13:00 [place] [facility] TIME (PTT) ESTIMATED GFR 2021-12-20 10:13:00 [facility] HC COMPLETE BLD COUNT 2021-12-20 10:13:00 [facility] W/AUTO DIFF POC GLUCOSE 2021-12-20 10:06:00 [facility] COVID-19 QUALITATIVE 2021-12-20 08:22:00 [facility] RT-PCR COVID-19 ANTI-SPIKE IGG 2021-12-20 08:22:00 [facility] ANTIBODY TITER COVID-19 SEROLOGY PATIENT 2021-12-20 08:22:00 [facility] SURVEILLANCE HC COMPLETE BLD COUNT 2021-12-20 08:22:00 [facility] W/AUTO DIFF BASIC METABOLIC PANEL 2021-12-20 08:22:00 [facility] HEMOGLOBIN A1C 2021-12-20 08:22:00 [facility] LIPID PANEL 2021-12-20 08:22:00 [facility] THYROID STIMULATING 2021-12-20 08:22:00 [facility] HORMONE T4, FREE 2021-12-20 08:22:00 [facility] TROPONIN T 2021-12-20 08:22:00 [facility] PROTHROMBIN TIME WITH INR 2021-12-20 08:22:00 [facility] PARTIAL THROMBOPLASTIN 2021-12-20 08:22:00 [facility] TIME (PTT) ANTI XA, UNFRACTIONATED 2021-12-20 08:22:00 [facility] ESTIMATED GFR 2021-12-20 08:22:00 [facility] SMEAR REVIEW 2021-12-20 08:22:00 [facility] POC GLUCOSE 2021-12-20 08:11:00 [facility] ECG 12-LEAD 2021-12-20 07:53:41 [facility] EXTERNAL PROVIDER RECORDS 2021-11-19 06:01:00 Doctor Unassigned, [facility] POCT GLUCOSE (AUTOMATED) 2021-11-02 22:49:00 Aida Shah [facility] POCT GLUCOSE (AUTOMATED) 2021-11-02 17:06:00 Aida Shah [facility] POCT GLUCOSE (AUTOMATED) 2021-11-02 13:30:00 Aida Shah [facility] TROPONIN I 2021-11-02 09:29:00 Alexandra Stephenson [facility] BASIC METABOLIC PANEL 2021-11-02 09:29:00 [facility] (NA, K, CL, CO2, GLUCOSE, Medica l Branch BUN, CREATININE, CA) CBC WITH DIFF 2021-11-02 09:29:00 [facility] N-TERMINAL PRO-BNP 2021-11-02 09:29:00 Alexandra Stephenson [facility] POCT GLUCOSE (AUTOMATED) 2021-11-02 01:27:00 Alyssa Aida [facility] POCT GLUCOSE (AUTOMATED) 2021-11-01 17:37:00 [facility] PO[facility]SE (AUTOMATED) 2021-11-01 13:40:00 [facility] POCT GLUCOSE (AUTOMATED) 2021-11-01 01:10:00 Aida Shah [facility] POCT GLUCOSE (AUTOMATED) 2021-10-31 22:28:00 [facility] POCT GLUCOSE (AUTOMATED) 2021-10-31 17:29:00 [facility] TROPONIN I 2021-10-31 16:25:00 Alexandra Stephenson [facility] TRANSTHORACIC ECHO (TTE) 2021-10-31 15:53:00 Alexandra Stephenson [facility] COMPLETE W/ CONTRAST [facility] POCT GLUCOSE (AUTOMATED) 2021-10-31 13:39:00 [facility] TROPONIN I 2021-10-31 10:08:00 [facility] BASIC METABOLIC PANEL 2021-10-31 10:08:00 [facility] (NA, K, CL, CO2, GLUCOSE, Medica l Branch BUN, CREATININE, CA) LIPID PANEL ([id number])(TOTAL 2021-10-31 10:08:00 Alexandra Stephenson [facility] CHOLESTEROL, [facility] TRIGLYCERIDES, HDL) CBC WITH DIFF 2021-10-31 10:08:00 [facility] 2021-10-31 10:08:00 [facility] N-TERMINAL PRO-BNP 2021-10-31 10:08:00 Alexandra Stephenson [facility] TROPONIN I 2021-10-31 06:17:00 [facility]ST 1 VW 2021-10-31 01:30:56 Martha Drake [facility] LIPASE 2021-10-31 01:25:00 Martha Drake [facility] TROPONIN I 2021-10-31 01:25:00 Martha Drake [facility] COMP. METABOLIC PANEL 2021-10-31 01:25:00 Martha Drake [facility] ([id number]) [facility] CBC WITH DIFF 2021-10-31 01:25:00 Martha Drake [facility] GLYCOSYLATED HEMOGLOBIN 2021-10-31 01:25:00 [facility] PROTHROMBIN TIME / INR 2021-10-31 01:25:00 Martha Drake [facility] ACTIVATED PARTIAL 2021-10-31 01:25:00 Martha Drake [facility] N-TERMINAL PRO-BNP 2021-10-31 01:25:00 Martha Drake [facility] COVID-19 (ID NOW RAPID 2021-10-31 01:25:00 Martha Drake [facility] TESTING) Medical Branch LAB ONLY COVID 2021-10-31 01:25:00 Martha Drake [facility] INTERPRETATION [facility] HB ECG ROUTINE & RHYTHM 2021-10-31 01:20:03 Martha Drake [facility] URINALYSIS 2021-04-25 21:01:00 Nallely Bhat [facility] XR LUMBAR SPINE 2 VW 2021-04-25 18:41:00 Nallely Bhat [facility] XR HIPS 2 VW LEFT 2021-04-25 18:41:00 Nallely Bhat [facility] CONSENT/REFUSAL FOR 2021-04-25 15:43:06 Doctor Unacassie, [facility] DIAGNOSIS AND TREATMENT [facility] CERVICAL SPINE WO 2020-06-26 09:35:01 Nandiniin Lamary [facility] LUMBAR SPINE WO 2020-06-26 09:35:01 Nandiniin [facility] CONTRAST [facility] CT THORACIC SPINE WO 2020-06-26 09:35:01 Vidal [facility] UNILATERAL DUPLEX SCAN OF 2020-05-24 14:53:40 Charanjit Heck [facility] ARTERY BY VASCULAR LAB Medical B ran XR ANKLE 3+ VW LEFT 2020-05-24 13:22:26 Charanjit Heck [facility] HEPATIC FUNCTION PANEL 2020-05-24 13:13:00 Charanjit Heck [facility] ([id number]) (ALB,T.PRO,BILI Medical Branch T,BU/BC,ALT,AST,ALK PHOS) BASIC METABOLIC PANEL 2020-05-24 13:13:00 Charanjit Heck [facility] (NA, K, CL, CO2, GLUCOSE, Medica l Branch BUN, CREATININE, CA) CBC WITH DIFFERENTIAL 2020-05-24 13:13:00 Charanjit Heck [facility] PROTHROMBIN TIME / INR 2020-05-24 13:13:00 Charanjit Heck [facility] ACTIVATED PARTIAL 2020-05-24 13:13:00 [facility] NOTICE OF PRIVACY 2020-05-24 11:38:26 Doctor Blaise, [facility] PRACTICES [facility] CONSENT/REFUSAL FOR 2020-05-24 11:35:52 Doctor Blaise, [facility] PO[facility] GLU[facility]SE (AUTOMATED) 2020-03-23 22:32:00 Jamel Flores [facility] POCT GLUCOSE (AUTOMATED) 2020-03-23 18:07:00 Jamel Flores [facility] POCT GLUCOSE (AUTOMATED) 2020-03-23 14:57:00 Jamel [facility] ECHO ROUTINE W/DOPPLER 2020-03-23 13:33:57 [facility] 2020-03-23 12:56:59 Jamel Flores [facility] MAGNESIUM 2020-03-23 11:15:00 Jerome [facility] TROPONIN I 2020-03-23 11:15:00 Jerome [facility] BASIC METABOLIC PANEL 2020-03-23 11:15:00 [facility] (NA, K, CL, CO2, GLUCOSE, Medica l Branch BUN, CREATININE, CA) PROTHROMBIN TIME / INR 2020-03-23 11:15:00 Tereza Cano [facility] ACTIVATED PARTIAL 2020-03-23 11:15:00 Jerome [facility] EKG-12 LEAD 2020-03-23 07:51:19 Jamel Flores [facility] MAGNESIUM 2020-03-23 05:55:00 Jerome [facility] TROPONIN I 2020-03-23 05:55:00 Jerome [facility] BASIC METABOLIC PANEL 2020-03-23 05:55:00 [facility] (NA, K, CL, CO2, GLUCOSE, Medica l Branch BUN, CREATININE, CA) LIPID PANEL ([id number])(TOTAL 2020-03-23 05:55:00 Tereza Cano [facility] TRIGLYCERIDES, HDL) PROTHROMBIN TIME / INR 2020-03-23 02:55:00 Sallie Eckert [facility] ACTIVATED PARTIAL 2020-03-23 02:55:00 Babar [facility] XR CHEST 2 VW 2020-03-23 01:52:37 Esteban Singletary [facility] CORONAVIRUS COVID-19 2020-03-23 00:50:00 Esteban Singletary [facility] FERRITIN SERUM 2020-03-22 23:36:00 Jerome [facility] TROPONIN I 2020-03-22 23:36:00 Hayder [facility] COMP. METABOLIC PANEL 2020-03-22 23:36:00 [id number] IRON PANEL 2020-03-22 23:36:00 Jerome [facility] CBC WITH DIFFERENTIAL 2020-03-22 23:36:00 Hayder [facility] N-TERMINAL PRO-BNP 2020-03-22 23:36:00 Esteban Singletary [facility] EKG-12 LEAD 2020-03-22 23:08:53 Hayder [facility] EKG-12 LEAD 2020-03-22 23:08:15 Hayder [facility] XR CHEST 1 VW 2020-03-21 20:42:35 Myles Harry [facility] LACTIC ACID WHOLE BLOOD 2020-03-21 20:38:00 Myles Harry [facility] LIPASE 2020-03-21 20:19:00 Myles Harry [facility] TROPONIN I 2020-03-21 20:19:00 Myles Harry [facility] COMP. METABOLIC PANEL 2020-03-21 20:19:00 Myles Harry [facility] ([id number]) [facility] PROTHROMBIN TIME / INR 2020-03-21 20:19:00 Myles Harry [facility] N-TERMINAL PRO-BNP 2020-03-21 20:19:00 Myles Harry [facility] CORONAVIRUS COVID-19 2020-03-21 20:19:00 Myles Harry [facility] EKG-12 LEAD 2020-03-21 20:11:28 Myles Harry [facility] POCT GLUCOSE (AUTOMATED) 2020-03-07 20:56:00 EdconsueloSarah [employer] [facility] POCT GLUCOSE (AUTOMATED) 2020-03-07 15:34:00 [facility]elo [facility] POCT GLUCOSE (AUTOMATED) 2020-03-07 12:56:00 Edconsuelo [facility] URIC ACID 2020-03-07 10:14:00 Holland Briscoe [facility] TROPONIN I 2020-03-07 10:14:00 [facility] BASIC METABOLIC PANEL 2020-03-07 10:14:00 [facility] (NA, K, CL, CO2, GLUCOSE, Medica l Branch BUN, CREATININE, CA) CBC WITH DIFFERENTIAL 2020-03-07 10:14:00 [facility] N-TERMINAL PRO-BNP 2020-03-07 10:14:00 Lulu Harris [facility] POCT GLUCOSE (AUTOMATED) 2020-03-06 21:16:00 Edionrosalio [facility] POCT GLUCOSE (AUTOMATED) 2020-03-06 16:10:00 Julio Cesar [facility] POCT GLUCOSE (AUTOMATED) 2020-03-06 12:38:00 Edconsuelo [facility] TROPONIN I 2020-03-06 08:51:00 [facility] BASIC METABOLIC PANEL 2020-03-06 08:51:00 [facility] (NA, K, CL, CO2, GLUCOSE, Medica l Branch BUN, CREATININE, CA) CBC WITH DIFFERENTIAL 2020-03-06 08:51:00 Edionrosalio [facility] POCT GLUCOSE (AUTOMATED) 2020-03-06 01:16:00 Edconsuelo [facility] TROPONIN I 2020-03-05 23:25:00 [facility] PO[facility] GLUCOSE (AUTOMATED) 2020-03-05 21:14:00 Edionwe [facility] POCT GLUCOSE (AUTOMATED) 2020-03-05 16:39:00 [facility] POCT GLUCOSE (AUTOMATED) 2020-03-05 12:47:00 Julio Cesar [facility] TROPONIN I 2020-03-05 09:50:00 [facility] BASIC METABOLIC PANEL 2020-03-05 09:50:00 [facility] (NA, K, CL, CO2, GLUCOSE, Medica l Branch BUN, CREATININE, CA) CBC WITH DIFFERENTIAL 2020-03-05 09:50:00 [facility] EKG-12 LEAD 2020-03-05 00:36:54 [facility] 2020-03-05 00:31:03 Renan [facility] CORONAVIRUS COVID-19 2020-03-05 00:03:00 Charanjit Heck [facility] XR CHEST 1 VW 2020-03-04 23:58:59 Charanjit Heck [facility] LIPASE 2020-03-04 23:29:00 Charanjit Heck [facility] TROPONIN I 2020-03-04 23:29:00 [facility] Hospital[facility]anj[facility] HEPATIC FUNCTION PANEL 2020-03-04 23:29:00 Charanjit Heck [facility] ([id number]) (ALB,T.PRO,BILI [facility] T,BU/BC,ALT,AST,ALK PHOS) BASIC METABOLIC PANEL 2020-03-04 23:29:00 Charanjit Heck [facility] (NA, K, CL, CO2, GLUCOSE, Medica l Branch BUN, CREATININE, CA) CBC WITH DIFFERENTIAL 2020-03-04 23:29:00 Charanjit Heck [facility] PROTHROMBIN TIME / INR 2020-03-04 23:29:00 Charanjit Heck [facility] ACTIVATED PARTIAL 2020-03-04 23:29:00 Charanjit Heck [facility] N-TERMINAL PRO-BNP 2020-03-04 23:29:00 Charanjit Heck [facility] EKG-12 LEAD 2020-03-04 23:15:42 Umang Kell [facility] EKG-12 LEAD 2020-03-04 23:10:23 Umang [facility] EMERGENCY DEPARTMENT 2020-03-04 05:01:00 Doctor Unassigned, [facility] DOCUMENTS [facility] POCT GLUCOSE (AUTOMATED) 2020-03-02 15:52:00 Lulu Harris [facility] POCT GLUCOSE (AUTOMATED) 2020-03-02 12:39:00 Lulu Harris [facility] MAGNESIUM 2020-03-02 08:57:00 Carolyn [facility] BASIC METABOLIC PANEL 2020-03-02 08:57:00 Carolyn alek [facility] (NA, K, CL, CO2, GLUCOSE, Medica l Branch BUN, CREATININE, CA) N-TERMINAL PRO-BNP 2020-03-02 08:57:00 Carolyn alek [facility] POCT GLUCOSE (AUTOMATED) 2020-03-01 20:39:00 Lulu Harris [facility] MAGNESIUM 2020-03-01 08:43:00 Lulu Harris [facility] TROPONIN I 2020-03-01 08:43:00 Carolyn [facility] BASIC METABOLIC PANEL 2020-03-01 08:43:00 Lulu Harris [facility] (NA, K, CL, CO2, GLUCOSE, Medica l Branch BUN, CREATININE, CA) CBC WITH DIFFERENTIAL 2020-03-01 08:43:00 Lulu Harris [facility] N-TERMINAL PRO-BNP 2020-03-01 08:43:00 Carolyn alek [facility] VITAMIN B12, LEVEL 2020-03-01 03:49:00 Carolyn alek [facility] FOLATE 2020-03-01 03:49:00 Carolyn alek [facility] SEDIMENTATION RATE 2020-03-01 03:49:00 Carolyn [facility] POCT GLUCOSE (AUTOMATED) 2020-03-01 03:39:00 Lulu Harris [facility] PHOSPHORUS 2020-03-01 02:28:00 Lulu Harris [facility] URIC ACID 2020-03-01 02:28:00 Carolyn [facility] TROPONIN I 2020-03-01 02:28:00 Carolyn [facility] HEPATIC FUNCTION PANEL 2020-03-01 02:28:00 Ivory Leon [facility] ([id number]) (AL[facility] T,BU/BC,ALT,AST,ALK PHOS) PROTHROMBIN TIME / INR 2020-03-01 02:28:00 Ivory Leon [facility] N-TERMINAL PRO-BNP 2020-03-01 02:28:00 Lulu Harris [facility] PROCALCITONIN 2020-03-01 02:28:00 Carolyn [facility] EKG-12 LEAD 2020-03-01 01:54:29 Carolyn [facility] EKG-12 LEAD 2020-02-29 23:16:21 Bobo Urrutia [facility] XR CHEST 1 VW COVID 2020-02-29 23:14:25 Bobo Urrutia [facility] EKG-12 LEAD 2020-02-29 23:13:50 Bobo Urrutia [facility] LACTIC ACID WHOLE BLOOD 2020-02-29 22:21:00 Bobo Urrutia [facility] CORONAVIRUS COVID-19 2020-02-29 22:20:00 Bobo Urrutia [facility] CREATINE KINASE 2020-02-29 22:14:00 Carolyn alek [facility] URIC ACID 2020-02-29 22:14:00 Carolyn [facility] LIPASE 2020-02-29 22:14:00 Bobo Urrutia [facility] MAGNESIUM 2020-02-29 22:14:00 Carolyn [facility] TROPONIN I 2020-02-29 22:14:00 Bobo Urrutia [facility] THYROID STIMULATING 2020-02-29 22:14:00 Ivory Leon [facility] HORMONE [facility] BASIC METABOLIC PANEL 2020-02-29 22:14:00 Bobo Urrutia [facility] (NA, K, CL, CO2, GLUCOSE, Medica l Branch BUN, CREATININE, CA) CBC WITH DIFFERENTIAL 2020-02-29 22:14:00 Bobo Urrutia [facility] GLYCOSYLATED HEMOGLOBIN 2020-02-29 22:14:00 Carolyn [facility] (A1C) [facility] N-TERMINAL PRO-BNP 2020-02-29 22:14:00 Carolyn alek [facility] EKG-12 LEAD 2020-02-29 21:59:12 [facility] 2020-02-29 21:48:49 [facility]ENCY [facility]PART[facility] 2020-02-29 05:01:00 Doctor Unassigned, [facility] DOCUMENTS [facility] POCT GLUCOSE (AUTOMATED) 2020-01-17 18:15:00 Julio Cesar [facility] TROPONIN I 2020-01-17 16:31:00 Julio Cesar [facility] ACTIVATED PARTIAL 2020-01-17 16:31:00 Carolyn [facility] POCT GLUCOSE (AUTOMATED) 2020-01-17 11:56:00 [facility]io [facility] TROPONIN I 2020-01-17 09:52:00 Julio Cesar [facility] BASIC METABOLIC PANEL 2020-01-17 09:52:00 Julio Cesar [facility] (NA, K, CL, CO2, GLUCOSE, Medica l Branch BUN, CREATININE, CA) CBC WITH DIFFERENTIAL 2020-01-17 09:52:00 Julio Cesar [facility] ACTIVATED PARTIAL 2020-01-17 09:52:00 Julio Cesar [facility] POCT GLUCOSE (AUTOMATED) 2020-01-16 23:59:00 Julio Cesar [facility] EKG-12 LEAD 2020-01-16 22:15:50 [facility] 2020-01-16 20:04:00 [facility]IVATED PARTIAL 2020-01-16 20:04:[address] [facility] POCT GLUCOSE (AUTOMATED) 2020-01-16 17:05:00 [facility] PO[facility] GLUCOSE (AUTOMATED) 2020-01-16 13:38:00 [facility]unc [facility] TROPONIN I 2020-01-16 11:11:00 [facility]inunc [facility] centerrosalio[facility] LIPID PANEL ([id number])(TOTAL 2020-01-16 11:11:00 [facility]inunc [facility] centerrosal[facility]St[facility] CHOLESTEROL, [facility] TRIGLYCERIDES, HDL) ACTIVATED PARTIAL 2020-01-16 11:11:00 [facility] 2020-01-16 05:48:18 Umang Kell [facility] XR CHEST 1 VW 2020-01-16 04:46:44 Umang Kell [facility] TROPONIN I 2020-01-16 04:38:00 Umang Kell [facility] HEPATIC FUNCTION PANEL 2020-01-16 04:38:00 Charanjit Heck [facility] ([id number]) (ALB,T.PRO,BILI Medical Branch T,BU/BC,ALT,AST,ALK PHOS) BASIC METABOLIC PANEL 2020-01-16 04:38:00 Charanjit Heck [facility] (NA, K, CL, CO2, GLUCOSE, Medica l Branch BUN, CREATININE, CA) CBC WITH DIFFERENTIAL 2020-01-16 04:38:00 Umang [facility] GLYCOSYLATED HEMOGLOBIN 2020-01-16 04:38:00 [facility] (A[facility] PROTHROMBIN TIME / INR 2020-01-16 04:38:00 Charanjit Heck [facility] ACTIVATED PARTIAL 2020-01-16 04:38:00 [facility] N-TERMINAL PRO-BNP 2020-01-16 04:38:00 Charanjit Heck [facility] EKG-12 LEAD 2020-01-16 04:37:48 Charanjit Heck [facility] EKG-12 LEAD 2020-01-16 04:35:35 Charanjit Heck [facility] AUTHORIZATION FOR RELEASE 2019-07-12 05:01:00 Doctor Unassigned, [facility] 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 Vasectomy [facility] Tonsillectomy [facility] Plan of Care Planned Activity Planned Date Details Comments Source Future Scheduled 2022-06-03 DIABETIC FOOT EXAM [facility] 09:40:04 [code = DIABETIC FOOT EXAM] Future Scheduled 2022-06-03 DIABETES: [facility]INAL [facility] 09:40:04 EYE EXAM [code = DIABETES: RETINAL EYE EXAM] Future Scheduled 2022-06-03 SHINGLES VACCINES [facility] 09:40:04 (1 of 2) [code = SHINGLES VACCINES (1 of 2)] Future Scheduled 2022-06-03 COVID-19 VACCINE (3 [facility] 09:40:04 - Booster for Moderna series) [code = COVID-19 VACCINE (3 - Booster for Moderna series)] Future Scheduled 2022-06-03 INFLUENZA VACCINE [facility] 09:40:04 [code = INFLUENZA VACCINE] Encounters Start End Encounter Admission Attending Care Care Encounter Source Date/Time Date/Time Type Type Clinicians Facility Department ID 2022-03-06 Outpatient [facility] [id number] [place] 08:51:10 [id number] Health 2021-12-16 Inpatient SERA Villavicencio OUTD [id number] [facility] 11:30:00 Jim Robley [facility] 2021-12-[address] [facility] [id number] Common 09:19:01 [facility] 2021-12-[address] [facility] [id number] Common 14:38:21 Anneliese [facility] 2021-12-11 Outpatient EDDY Batista [facility] [id number] Common 11:50:18 Anneliese [address] [facility] 2021-09-16 Emergency [facility] [id number] Univers 00:23:34 ity of [facility] 2021-09-13 Emergency [facility] [id number] Univers 11:42:35 ity of [facility] 2021-09-13 Emergency [facility] [id number] Univers 05:40:48 ity of [facility] 2022-06-11 2022-06-11 Transition SHAREE Maria [id number] Univers 00:00:00 00:00:00 of Care Supa Adela GRE[place] [id number] [id number] [id number] [facility] [address] Branch 2022-06-03 2022-06-10 Inpatient X [facility] [id number] Univers 09:43:00 16:00:00 EVE itazra [facility] 2022-06-03 2022-06-10 [facility] Ric Childers [facility] [id number] Univers 09:43:00 16:00:00 Encounter Eve Rae [id number] ity [facility] [id number] [id number] [facility] 081 Branch 2022-06-02 2022-06-02 Transition SHAREE Silva [id number] Univers 00:00:00 00:00:00 of Care Isatu URI [id number] [id number] [id number] [facility] 403 Branch 2022-05-23 2022-05-31 Inpatient X PERFECTO GARNICA [facility] ZEFERINO 1 [id number] Univers 23:06:00 16:10:00 PERFECTO GARNICA [facility] 2022-05-23 2022-05-31 [facility] Davis Fam [facility] [id number] Univers 23:06:00 16:10:00 [facility] [id number] ity of [place] [id number] [facility] [id number] [facility] [address] [facility] 2022-04-23 2022-04-23 [facility] [id number] Common 00:00:00 00:00:00 [facility] 2022-04-16 2022-04-16 Emergency [facility] ERT [id number] Univers 22:29:00 23:27:00 LUZ leon [facility] 2022-04-16 2022-04-16 Emergency [facility] [id number] Univers 22:29:00 23:27:00 Luz RAMSEY [id number] i ty libertad CLEMENTE [id number] [facility] [id number] [address] 2022-03-05 2022-03-11 Inpatient [facility] [id number] [facility] 11:12:00 03:30:[address] 2022-03-05 2022-03-10 Inpatient U LBADE, [facility] [facility] CAR [address] [facility] 06:12:00 22:30:00 BRODIE 2022-03-01 2022-03-01 Emergency [facility] E[facility] [id number] Univers 06:52:00 12:04:00 ANGELIKA leon [facility] 2022-03-01 2022-03-01 Emergency [facility] 1.2.840.114 [id number] Univers 06:52:00 12:04:00 Angelika RAMSEY 350.1.13.10 ity libertad CLEMENTE 4.2.7.2.686 [facility] [id number] [place] [address] Branch 2021-12-25 2021-12-25 Hospital Trang, 1.2.840.1 [id number] Marina 07:00:00 23:59:00 Encounter Jono 76871.1.1 356 s t 3.430.2.7 Hospit a .3.298260 l .8 2021-12-19 2021-12-25 [facility], 1.2.840.1 [id number] Methodi 23:41:00 17:49:00 Encounter Jayson Aguilar [address]3520.1.[address] 3.430.2.7 Hospit a .3.198505 l .8 2021-12-24 2021-12-24 ambulatory STLMLC STLMLC [id number] Common 00:00:00 00:00:00 [facility] 2021-12-20 2021-12-20 [facility] [id number] Methodi 11:00:00 23:59:00 Encounter Jono 49674.1.1 193 s t 3.430.2.7 Hospit a .3.381541 l .8 2021-12-17 2021-12-17 ambulatory STLMLC STLMLC [id number] Common 00:00:00 00:00:00 [facility] 2021-12-16 2021-12-16 ambulatory STLMLC STLMLC [id number] Common 00:00:00 00:00:00 [facility] 2021-11-19 2021-11-19 Orders Doctor ROBERT 1.2.840.114 [id number] Univers 00:00:00 00:00:00 Only Unassigned, ASHLEIGH 350.1.13.10 ity of [facility] 4.2.7.2.686 [place] as [id number] [facility] 009 Branch 2021-11-04 2021-11-04 Transition SHAREE Maria 1.2.840.114 [id number] Univers 00:00:00 00:00:00 of Care Supa GREWAL 350.1.13.10 [place] [id number] [facility] 403 Branch 2021-10-30 2021-11-02 Inpatient X ALYSSA [facility] [id number] Univers 19:14:00 18:15:00 AIDA ity of [facility] 2021-10-30 2021-11-02 [facility] Martha Drake [facility] 1.2.840. 114 [id number] Univers 19:14:00 18:15:00 Encounter Aida Shah 350.1.13.10 ity [facility] 4.2.7.2.686 [facility] [phone] [facility] 081 Branch 2021-05-17 2021-05-17 Letter PcpROBERT 1.2.840.114 [id number] Univers 00:00:00 00:00:00 (Out) Patient ASHLEIGH 350.1.13.[address] [facility] 4.2.7.2.686 [place] Have A [id number] [facility] 019 Branch 2021-04-25 2021-04-25 Emergency Cece, TRAUMA 1.2.521.866 [id number] Univers 10:43:00 17:38:00 [facility] 350.1.13.10 i ty of [facility] 4.2.7.2.686 [facility] [id number] [facility] 014 Branch 2020-06-26 2020-06-26 Emergency [facility] 1.2.344.487 [id number] Univers 03:50:00 06:45:00 Martha Ramsey 350.1.13.10 ity of [place] 4.2.7.2.686 [facility] [id number] [facility] 084 Branch 2020-06-26 2020-06-26 Emergency [facility] 1.2.579.652 [id number] 03:50:00 06:45:00 Martha Ramsey 350.1.13.10 [place] 4.2.7.2.686 [place] [id number] 084 2020-05-24 2020-05-24 Emergency [facility] 1.2.663.032 [id number] Univers 06:40:47 10:54:00 Charanjit Ramsey 350.1.13.10 i ty of [place] 4.2.7.2.686 [facility] [id number] [facility] 084 Branch 2020-05-24 2020-05-24 Emergency [facility] 1.2.774.407 [id number] 3245 06:40:47 10:54:00 Charanjit Ramsey 350.1.13.10 [place] 4.2.7.2.686 [place] [id number] 4 2020-03-29 2020-03-29 Jamel Dunn 1.2.840.114 [id number] Univers 00:00:00 00:00:00 (Out) T Ashleigh 350.1.13.10 it y of [facility] 4.2.7.2.686 [place] [phone] [address] 2020-03-29 2020-03-29 Jamel Dunn 1.2.840.114 [id number] 00:00:00 00:00:00 (Out) T Ashleigh 350.1.13.10 [facility] 4.2.7.2.686 [id number] [facility] 2020-03-26 2020-03-26 Transition Sharee George 1.2.840.114 [id number] [id number] Univers 00:00:00 00:00:00 of Care Sherrell Grewal 350.1.13.10 it y of [place] [id number] [address] 2020-03-26 2020-03-26 Transition Sharee George 1.2.840.114 [id number] 00:00:00 00:00:00 of Care Sherrell Grewal 350.1.13.10 [place] 4.2.7.2.686 [id number] 403 2020-03-22 2020-03-23 Emergency Sallie Eckert 1.2.840. 114 [id number] [facility] 18:02:47 21:55:00 Jamel Flores 350.1.13.10 ity [facility] 4.2.7.2.686 [place] [id number] [address] 2020-03-22 2020-03-23 Outpatient X [facility] [id number] [facility] 18:02:47 21:55:00 ity [facility] 2020-03-21 2020-03-21 Emergency Kamryn [facility] 1.2.840.114 [id number] Univers 15:02:08 17:16:00 Mylesazra Ramsey 350.1.13.10 i ty of [place] 4.2.7.2.686 [facility] [id number] [address] 2020-03-21 2020-03-21 Emergency X [facility] ERT [id number] Univers 15:02:08 17:16:00 MYLES ity of [facility] 2020-03-13 2020-03-13 [facility] [id number] [place] 05:24:00 05:24:00 0428 Medical [facility] 2020-03-08 2020-03-08 Transition Sharee Cool 1.2.840.114 [id number] [id number] Univers 00:00:00 00:00:00 of Care Prema Grewal 350.1.13.10 i ty [place] [id number] [address] 2020-03-04 2020-03-07 [facility] Umang Charanjit [facility] 1.2.840.1 14 [id number] Univers 18:01:05 18:00:00 Encounter Sarah Harrell 350.1.13.10 ity of [place] 4.2.7.2.686 [facility] [id number] [address] 2020-03-04 2020-03-07 Inpatient X [facility] ZEFERINO [id number] Univers 18:01:05 18:00:00 SARAH leon [facility] 2020-03-03 2020-03-03 Transition Sharee Silva 1.2.840.114 [id number] Univers 00:00:00 00:00:00 of Care Isatu Uri 350.1.13.10 it y of [place] [id number] [address] 2020-02-29 2020-03-02 [facility] Bobo Urrutia [facility] 1.2.840.11 [id number] Univers 16:53:09 12:18:00 Encounter Lulu Harris 350.1.13.10 ity of [place] [id number] [place] [id number] Branch 2020-02-29 2020-03-02 Inpatient X STEVEN [facility] ZEFERINO [id number] Univers 16:53:09 12:18:00 LULU leon [facility] 2020-02-15 2020-02-15 Outpatient [facility] [id number] Univers 11:30:00 11:30:00 ROSEMARY leon [facility] 2020-02-15 2020-02-15 Telemedici [facility] 1.2.840.114 [id number] Univers 08:13:42 08:43:42 ne Visit Rosemary Ramsey 350.1.13.10 it[place] of [place] Profess[place] [phone] [facility] dical nal [address] 2020-01-18 2020-01-18 Transition Sharee Harvey 1.2.840.114 [id number] Univers 00:00:00 00:00:00 of Care Ana M Hahny 350.1.13.10 it y of [place] [phone] [facility] 403 [address] 2020-01-15 2020-01-17 [facility] 1.2.840.1 14 [id number] Univers 22:33:37 16:58:00 Encounter Sarah Harrell 350.1.13.10 ity of [place] [id number] [place] [id number] Branch 2020-01-15 2020-01-17 Outpatient X JULIO CESAR [facility] ZEFERINO [id number] Univers 22:33:37 16:58:00 SARAH leon [facility] 2019-10-07 2019-10-07 [facility] [id number] Common 10:48:00 10:48:00 [facility] it Road [facility] 2019-10-05 2019-10-05 [facility] [id number] Common 16:06:00 16:06:00 [facility] it [facility] 2019-07-27 2019-07-27 Refill Larsen, [facility] 1.2.840.114 [id number] Univers 00:00:00 00:00:00 Rosemary Ramsey 350.1.13.10 i ty of [place] [id number] [place]ical nal 220 [facility] 2019-07-12 2019-07-12 Out[facility] 27 [id number] Common 16:24:00 16:24:00 [facility] [address] [facility] 2019-07-12 2019-07-12 Orders Doctor ROBERT 1.2.840.114 [id number] Univers 00:00:00 00:00:00 Only Unassigned, ASHLEIGH 350.1.13.10 ity of [place] [facility] 4.2.7.2.686 [place] [id number] [address] 2019-07-06 2019-07-06 Out[facility] [id number] Common 14:00:00 14:00:00 [facility] [address] [facility] 2013-03-03 2013-03-07 Inpatient nullFlavo [id number] Memoria 09:30:00 09:25:00 [place] 01 manasa Benavides 2013-02-03 2013-02-03 MARIA E nullFlavo MH [id number] Memoria 08:45:00 11:45:00 r [place] 00 manasa Benavides Results Test Description Test Time Test Comments Results Result Comments Source POCT GLUCOSE (AUTOMATED) 2022-06-10 16:54:59 Test Item Value Reference Range Interpretation Comme nts POCT GLU (test code = 7365956717) 301 mg/dL 70-110 H Lab Interpretation (test code = 93283-6) Abnormal [facility] GLUCOSE (AUTOMATED)2022-06-10 16:54:59 Test Item Value Reference Range Interpretation Comments POCT GLU (test code = 5050342244) 163 mg/dL 70-110 H Lab Interpretation (test code = Abnormal 77038-8) [facility] GLUCOSE (AUTOMATED)2022-06-10 13:27:49 Test Item Value Reference Range Interpretation Comments POCT GLU (test code = 7502981703) 177 mg/dL 70-110 H Lab Interpretation (test code = Abnormal 16138-7) [facility] GLUCOSE (AUTOMATED)2022-06-10 09:33:01 Test Item Value Reference Range Interpretation Comments POCT GLU (test code = 5859110190) 179 mg/dL 70-110 H Lab Interpretation (test code = Abnormal 48558-3) [facility] GLUCOSE (AUTOMATED)2022-06-10 05:14:48 Test Item Value Reference Range Interpretation Comments POCT GLU (test code = 5737780453) 223 mg/dL 70-110 H Lab Interpretation (test code = Abnormal 13229-9) [facility] GLUCOSE (AUTOMATED)2022-06-10 01:41:35 Test Item Value Reference Range Interpretation Comments POCT GLU (test code = 5558892982) 213 mg/dL 70-110 H Lab Interpretation (test code = Abnormal 18048-0) [facility] GLUCOSE (AUTOMATED)2022-06-09 21:56:12 Test Item Value Reference Range Interpretation Comments POCT GLU (test code = 9998640052) 233 mg/dL 70-110 H Lab Interpretation (test code = Abnormal 16707-7) [facility] GLUCOSE (AUTOMATED)2022-06-09 21:56:07 Test Item Value Reference Range Interpretation Comments POCT GLU (test code = 5086213736) 223 mg/dL 70-110 H Lab Interpretation (test code = Abnormal 94403-0) [facility] GLUCOSE (AUTOMATED)2022-06-09 17:25:54 Test Item Value Reference Range Interpretation Comments POCT GLU (test code = 7966877445) 310 mg/dL 70-110 H Lab Interpretation (test code = Abnormal 60095-6) [facility] GLUCOSE (AUTOMATED)2022-06-09 13:11:43 Test Item Value Reference Range Interpretation Comments POCT GLU (test code = 6086215960) 221 mg/dL 70-110 H Lab Interpretation (test code = Abnormal 58018-4) [facility] GLUCOSE (AUTOMATED)2022-06-09 12:31:00 Test Item Value Reference Range Interpretation Comments POCT GLU (test code = 1937955481) 157 mg/dL 70-110 H Lab Interpretation (test code = Abnormal 49671-6) [facility] GLUCOSE (AUTOMATED)2022-06-09 10:39:53 Test Item Value Reference Range Interpretation Comments POCT GLU (test code = 8084751490) 185 mg/dL 70-110 H Lab Interpretation (test code = Abnormal 98285-1) [facility] GLUCOSE (AUTOMATED)2022-06-09 05:11:06 Test Item Value Reference Range Interpretation Comments POCT GLU (test code = 5024390775) 213 mg/dL 70-110 H Lab Interpretation (test code = Abnormal 95537-8) [facility] GLUCOSE (AUTOMATED)2022-06-09 01:07:59 Test Item Value Reference Range Interpretation Comments POCT GLU (test code = 2164445978) 192 mg/dL 70-110 H Lab Interpretation (test code = Abnormal 90997-3) [facility] GLUCOSE (AUTOMATED)2022-06-08 21:46:21 Test Item Value Reference Range Interpretation Comments POCT GLU (test code = 1036336717) 234 mg/dL 70-110 H Lab Interpretation (test code = Abnormal 43693-1) [facility] GLUCOSE (AUTOMATED)2022-06-08 17:00:47 Test Item Value Reference Range Interpretation Comments POCT GLU (test code = 0044521275) 449 mg/dL 70-110 H Lab Interpretation (test code = Abnormal 18471-9) [facility] GLUCOSE (AUTOMATED)2022-06-08 14:24:36 Test Item Value Reference Range Interpretation Comments POCT GLU (test code = 1560310590) 464 mg/dL 70-110 HH Lab Interpretation (test code = Abnormal 51367-9) [facility] GLUCOSE (AUTOMATED)2022-06-08 00:49:10 Test Item Value Reference Range Interpretation Comments POCT GLU (test code = 0336555872) 191 mg/dL 70-110 H Lab Interpretation (test code = Abnormal 14561-6) [facility] GLUCOSE (AUTOMATED)2022-06-07 22:27:35 Test Item Value Reference Range Interpretation Comments POCT GLU (test code = 1257846475) 207 mg/dL 70-110 H Lab Interpretation (test code = Abnormal 45404-3) [facility] GLUCOSE (AUTOMATED)2022-06-07 17:00:27 Test Item Value Reference Range Interpretation Comments POCT GLU (test code = 8526717172) 189 mg/dL 70-110 H Lab Interpretation (test code = Abnormal 42522-5) [facility] GLUCOSE (AUTOMATED)2022-06-07 02:39:27 Test Item Value Reference Range Interpretation Comments POCT GLU (test code = 6321724404) 232 mg/dL 70-110 H Lab Interpretation (test code = Abnormal 89643-8) [facility] GLUCOSE (AUTOMATED)2022-06-07 02:39:22 Test Item Value Reference Range Interpretation Comments POCT GLU (test code = 6053968147) 265 mg/dL 70-110 H Lab Interpretation (test code = Abnormal 75275-0) [facility] GLUCOSE (AUTOMATED)2022-06-06 13:16:34 Test Item Value Reference Range Interpretation Comments POCT GLU (test code = 6538708525) 237 mg/dL 70-110 H Lab Interpretation (test code = Abnormal 72749-8) [facility] GLUCOSE (AUTOMATED)2022-06-06 13:02:26 Test Item Value Reference Range Interpretation Comments POCT GLU (test code = 6985522407) 189 mg/dL 70-110 H Lab Interpretation (test code = Abnormal 96564-8) [facility] 11:42:18 Test Item Value Reference Range Interpretation Comments MAGNESIUM (test code = 2141192961) 2.1 mg/dL 1.7-2.4 Lab Interpretation (test code = Normal 03284-5) [facility] METABOLIC PANEL (NA, K, CL, CO2, GLUCOSE, BUN, CREATININE, CA)2022-06-06 11:41:58 Test Item Value Reference Range Interpretation Comments NA (test code = 140 mmol/L 135-145 6873203063) K (test code = 3.8 mmol/L 3.5-5 2848823879) CL (test code = 100 mmol/L 98-108 1102099916) CO2 TOTAL (test code = 31 mmol/L 23-31 4619039791) AGAP (test code = 2-16 9340331123) BUN (test code = 25 mg/dL 7-23 H 6116973570) GLUCOSE (test code = 109 mg/dL 70-110 9392883554) CREATININE (test code = 1.05 mg/dL 0.6-1.25 5798319243) CALCIUM (test code = 9.7 mg/dL 8.6-10.6 8717560643) eGFR (test code = mL/min/1.73m2 3069356246) ALYSSA (test code = ALYSSA) Association of [...] tests). Lab Interpretation Abnormal (test code = 38368-0) [facility] WITH NOST5900-10-65 10:01:27 Test Item Value Reference Range Interpretation Comments WBC (test code = See_Comment [Automated 2173-2) message] The sy stem which generated this [...] as normal/abnormal . HGB (test code = 12.8 g/dL 12.2-16.4 718-7) HCT (test code = 38.6 % 38.4-49.3 4544-3) MCV (test code = 96.5 fL 81.7-95.6 H 787-2) MCH (test code = 32.0 pg 26.1-32.7 785-6) MCHC (test code = 33.2 g/dL 31.2-35 786-4) RDW-SD (test code = 49.9 fL 38.5-51.6 19730-6) RDW-CV (test code = 14.1 % 12.1-15.4 788-0) PLT (test code = See_Comment [Automated 777-3) message] The sy stem which generated this result transmitted reference range : 150 - 328 10*3/ ?L. The reference r corey was not used to interpret this result as normal/abnormal . MPV (test code = 10.1 fL 9.8-13 83321-5) NRBC/100 WBC (test See_Comment [Automat ed code = 5476694471) message] The system which generated this result transmitted reference range : 0.0 - 10.0 /100 WBCs. The refer ence range was not u sed to interpret th is result as normal/abnormal . NRBC x10^3 (test code See_Comment [Auto mated = 1994292860) message] The s ystem which generated this result transmitted reference range : 10*3/?L. The reference range was not used to interpret this result as normal/abnormal . GRAN MAT (NEUT) % 66.3 % (test code = 770-8) IMM GRAN % (test code 0.40 % = 0829458456) LYMPH % (test code = 20.7 % 736-9) MONO % (test code = 8.4 % 5905-5) EOS % (test code = 3.5 % 713-8) BASO % (test code = 0.7 % 706-2) GRAN MAT x10^3(ANC) 5.08 10*3/uL 1.99-6.95 (test code = 1999157544) IMM GRAN x10^3 (test 0.03 10*3/uL 0-0.06 code = 8456493426) LYMPH x10^3 (test code 1.58 10*3/uL 1.09-3.23 = 731-0) MONO x10^3 (test code 0.64 10*3/uL 0.36-1.02 = 742-7) EOS x10^3 (test code = 0.27 10*3/uL 0.06-0.53 711-2) BASO x10^3 (test code 0.05 10*3/uL 0.01-0.09 = 704-7) Lab Interpretation Abnormal (test code = 68066-8) [facility] 01:58:35 Test Item Value Reference Range Interpretation Comments POCT GLU (test code = 2749264103) 119 mg/dL 70-110 H Lab Interpretation (test code = Abnormal 30442-5) [facility]2022-06-05 18:49:03 Test Item Value Reference Range Interpretation Comments Height (test code = in 7738582783) Weight (test code = lbs 8560670166) Systolic BP (test code = mmHg 3832844240) Diastolic BP (test code mmHg = 0809147657) Heart Rate (test code = bpm 0222561991) BSA (test code = 1.73 m2 1947761715) LVIDD (test code = 5.60 cm 0791347992) IVS (test code = 0.83 cm 7849527787) Interventricular Septum 0.83 cm Diastolic Thickness by 2D (test code = 2007728) LVPWD (test code = 0.83 cm 6144037032) PW (test code = 0.83 cm 0.6-1.8 7137044800) EF(Teich) (test code = 14.30 % 7458436781) LVIDS (test code = 5.20 cm 8201414325) FS (test code = 7 % 0876492655) EF - 2D (test code = 14.30 % 78909614) Radiology Study observation (narrative) (test code = 83009-0) ALYSSA (test code = ALYSSA) Formatting of this result is different from the original. ?Limited Echo only ?Left?Ventricle: Left ventricle is severely dilated. Normal wall thickness. Severe global hypokinesis present. Severely reduced systolic function with a visually estimated EF of 10 -15%. Unable to assess diastolic function. ?Mitral?Valve: Mild transvalvular regurgitation. ?Aortic?Valve: Trace transvalvular regurgitation. Left VentricleLeft ventricle is severely dilated. Normal wall thickness. Severe global hypokinesis present. Severely reduced systolic function with a visually estimated EF of 10 -15%. Unable to assess diastolic function.Mitral ValveModerate mitral annular calcification. Mild transvalvular regurgitation.Aortic ValveAortic valve opens well. Mildly calcified cusps. Trace transvalvular regurgitation.Study DetailsA limited echocardiogram was performed using 2D, color flow Doppler and spectral Doppler. 5 mL of Lumason ultrasound enhancing agent used. [facility] GLUCOSE (AUTOMATED)2022-06-05 17:20:01 Test Item Value Reference Range Interpretation Comments POCT GLU (test code = 2608998404) 177 mg/dL 70-110 H Lab Interpretation (test code = Abnormal 26677-1) [facility] [id number] 14:30:25 Test Item Value Reference Range Interpretation Comments NT-proBNP (test code 3520 pg/mL See_Comment H [Autom ated = 0211636300) message] The system which generated this result transmitted reference range : <=450. The reference range was not used to interpret this result as normal/abnormal . ALYSSA (test code = ALYSSA) Biotin has been reported to cause a negative bias, interpret results relative to patient's use of biotin. Lab Interpretation Abnormal (test code = 10736-8) [facility] GLUCOSE (AUTOMATED)2022-06-05 13:06:52 Test Item Value Reference Range Interpretation Comments POCT GLU (test code = 6194912439) 196 mg/dL 70-110 H Lab Interpretation (test code = Abnormal 60936-5) [facility] GLUCOSE (AUTOMATED)2022-06-05 01:19:44 Test Item Value Reference Range Interpretation Comments POCT GLU (test code = 7487470134) 160 mg/dL 70-110 H Lab Interpretation (test code = Abnormal 04507-2) [facility] GLUCOSE (AUTOMATED)2022-06-04 21:53:21 Test Item Value Reference Range Interpretation Comments POCT GLU (test code = 1819467283) 179 mg/dL 70-110 H Lab Interpretation (test code = Abnormal 27367-9) [facility] GLUCOSE (AUTOMATED)2022-06-04 17:18:37 Test Item Value Reference Range Interpretation Comments POCT GLU (test code = 8403103867) 208 mg/dL 70-110 H Lab Interpretation (test code = Abnormal 78740-6) [facility] [id number] 16:08:53 Test Item Value Reference Interpretation Comments Range TROPONIN I (test 0.061 ng/mL See_Comment H [Automated code = 2669439335) message] The system which generated this result [...] biotin. Lab Interpretation Abnormal (test code = 22286-0) [facility] METABOLIC PANEL (NA, K, CL, CO2, GLUCOSE, BUN, CREATININE, CA)2022-06-04 15:57:07 Test Item Value Reference Range Interpretation Comments NA (test code = 139 mmol/L 135-145 2907795704) K (test code = 3.6 mmol/L 3.5-5 1366963699) CL (test code = 100 mmol/L 98-108 6338636388) CO2 TOTAL (test code = 30 mmol/L 23-31 5699634696) AGAP (test code = 2-16 7697806780) BUN (test code = 27 mg/dL 7-23 H 2577794715) GLUCOSE (test code = 159 mg/dL 70-110 H 4639717833) CREATININE (test code = 0.94 mg/dL 0.6-1.25 0025366036) CALCIUM (test code = 9.3 mg/dL 8.6-10.6 1344595373) eGFR (test code = mL/min/1.73m2 0882687496) ALYSSA (test code = ALYSSA) Association of [...] tests). Lab Interpretation Abnormal (test code = 85989-0) [facility]END[facility] [id number] 15:25:43 Test Item Value Reference Interpretation Comments Range TROPONIN I (test 0.085 ng/mL See_Comment H [Automated code = 3131449477) message] The system which generated this result [...] biotin. Lab Interpretation Abnormal (test code = 64911-5) [facility] GLUCOSE (AUTOMATED)2022-06-04 13:13:51 Test Item Value Reference Range Interpretation Comments POCT GLU (test code = 3813745091) 196 mg/dL 70-110 H Lab Interpretation (test code = Abnormal 63289-0) [facility] [id number] 03:16:42 Test Item Value Reference Interpretation Comments Range TROPONIN I (test 0.077 ng/mL See_Comment H [Automated code = 5377591680) message] The system which generated this result [...] biotin. Lab Interpretation Abnormal (test code = 52969-6) [facility] GLUCOSE (AUTOMATED)2022-06-03 23:26:30 Test Item Value Reference Range Interpretation Comments POCT GLU (test code = 9559649117) 185 mg/dL 70-110 H Lab Interpretation (test code = Abnormal 38343-8) [facility]Type and Screen - ONCE [id number] 16:49:21 Test Item Value Reference Range Interpretation Comments ABO & RH (test code A Positive Performe d at [facility] = 20) Laboratory Serv [facility] [address] [place], [place] [address]Toll Free: [phone] A No. [id number] IAT (test code = Negative Performed a t [facility] 1185) Laboratory Serv [facility] [place], [place] [address]Toll Free: [phone] A No. [id number] [facility] HospitalProthrombin Time / [id number] 16:10:07 Test Item Value Reference Range Interpretation Comments [...] tions. Lab Interpretation (test Normal code = 70892-0) [facility] [id number] 15:31:19 Test Item Value Reference Interpretation Comments Range TROPONIN I (test 0.093 ng/mL See_Comment H [Automated code = 1387289143) message] The system which generated this result [...] biotin. Lab Interpretation Abnormal (test code = 44988-1) [id number] 15:28:02 Test Item Value Reference Range Interpretation Comments NT-proBNP (test code 9060 pg/mL See_Comment H [Autom ated = 1987745517) message] The system which generated this result transmitted reference range : <=450. The reference range was not used to interpret this result as normal/abnormal . ALYSSA (test code = ALYSSA) Biotin has been reported to cause a negative bias, interpret results relative to patient's use of biotin. Lab Interpretation Abnormal (test code = 53591-5) [facility] 15:20:38 Test Item Value Reference Range Interpretation Comments MAGNESIUM (test code = 4982277401) 1.8 mg/dL 1.7-2.4 Lab Interpretation (test code = Normal 18200-7) [facility] (90092)2022-06-03 15:20:18 Test Item Value Reference Range Interpretation Comments NA (test code = 137 mmol/L 135-145 2146534548) K (test code = 3.7 mmol/L 3.5-5 7086658275) CL (test code = 99 mmol/L 98-108 1640997198) CO2 TOTAL (test code = 24 mmol/L 23-31 5253608671) AGAP (test code = 2-16 8252540479) BUN (test code = 31 mg/dL 7-23 H 2821858726) GLUCOSE (test code = 224 mg/dL 70-110 H 4621843796) CREATININE (test code = 1.30 mg/dL 0.6-1.25 H 1850527115) TOTAL BILI (test code = 1.4 mg/dL 0.1-1.1 H 1698408578) CALCIUM (test code = 9.2 mg/dL 8.6-10.6 2666404469) T PROTEIN (test code = 6.3 g/dL 6.3-8.2 8731389594) ALBUMIN (test code = 3.8 g/dL 3.5-5 1816419963) ALK PHOS (test code = 98 U/L 34-122 4121667312) ALTv (test code = 18 U/L 5-50 1742-6) AST(SGOT) (test code = 30 U/L 13-40 3004360325) eGFR (test code = mL/min/1.73m2 7608766519) ALYSSA (test code = ALYSSA) Association of [...] tests). Lab Interpretation Abnormal (test code = 48163-5) [facility] 15:20:18 Test Item Value Reference Range Interpretation Comments LIPASE (test code = 7708669859) 343 U/L 0-220 H Lab Interpretation (test code = Abnormal 96525-1) [facility] [id number] 15:10:01 Test Item Value Reference Range Interpretation Comments [...] 38.4-49.3 L 4544-3) MCV (test code = 91.8 fL 81.7-95.6 787-2) MCH (test code = 32.0 pg 26.1-32.7 785-6) MCHC (test code = 34.9 g/dL 31.2-35 786-4) RDW-SD (test code = 45.3 fL 38.5-51.6 32639-9) RDW-CV (test code = 13.5 % 12.1-15.4 788-0) PLT (test code = See_Comment [Automated 777-3) message] The sy stem which generated this result transmitted reference range : 150 - 328 10*3/ ?L. The reference r corey was not used to interpret this result as normal/abnormal . MPV (test code = 10.0 fL 9.8-13 66722-1) NRBC/100 WBC (test See_Comment [Automat ed code = 5567121336) message] The system which generated this result transmitted reference range : 0.0 - 10.0 /100 WBCs. The refer ence range was not u sed to interpret th is result as normal/abnormal . NRBC x10^3 (test code See_Comment [Auto mated = 3276644718) message] The s ystem which generated this result transmitted reference range : 10*3/?L. The reference range was not used to interpret this result as normal/abnormal . GRAN MAT (NEUT) % 77.8 % (test code = 770-8) IMM GRAN % (test code 0.50 % = 0016900633) LYMPH % (test code = 11.7 % 736-9) MONO % (test code = 9.4 % 5905-5) EOS % (test code = 0.2 % 713-8) BASO % (test code = 0.4 % 706-2) GRAN MAT x10^3(ANC) 6.30 10*3/uL 1.99-6.95 (test code = 7811228249) IMM GRAN x10^3 (test 0.04 10*3/uL 0-0.06 code = 7692154044) LYMPH x10^3 (test code 0.95 10*3/uL 1.09-3.23 L = 731-0) MONO x10^3 (test code 0.76 10*3/uL 0.36-1.02 = 742-7) EOS x10^3 (test code = 0.06-0.53 L 711-2) BASO x10^3 (test code 0.03 10*3/uL 0.01-0.09 = 704-7) Lab Interpretation Abnormal (test code = 72296-4) [facility] METABOLIC PANEL (NA, K, CL, CO2, GLUCOSE, BUN, CREATININE, CA)2022-05-31 11:07:06 Test Item Value Reference Range Interpretation Comments NA (test code = 133 mmol/L 135-145 L 3762198386) K (test code = 3.3 mmol/L 3.5-5 L 4817658653) CL (test code = 91 mmol/L 98-108 L 4793006645) CO2 TOTAL (test code = 33 mmol/L 23-31 H 8264472080) AGAP (test code = 2-16 2912281582) BUN (test code = 57 mg/dL 7-23 H 0591099155) GLUCOSE (test code = 285 mg/dL 70-110 H 9803966336) CREATININE (test code = 1.56 mg/dL 0.6-1.25 H 2201611521) CALCIUM (test code = 9.2 mg/dL 8.6-10.6 2398205895) eGFR (test code = mL/min/1.73m2 2084859751) ALYSSA (test code = ALYSSA) Association of [...] tests). Lab Interpretation Abnormal (test code = 20293-0) [facility] METABOLIC PANEL (NA, K, CL, CO2, GLUCOSE, BUN, CREATININE, CA)2022-05-30 09:08:14 Test Item Value Reference Range Interpretation Comments NA (test code = 132 mmol/L 135-145 L 6931347071) K (test code = 3.5 mmol/L 3.5-5 Slight 2299578202) hemolysis CL (test code = 90 mmol/L 98-108 L 7645817193) CO2 TOTAL (test code 33 mmol/L 23-31 H = 9003036959) AGAP (test code = 2-16 9645444198) BUN (test code = 37 mg/dL 7-23 H Slight 6172350000) hemolysis GLUCOSE (test code = 167 mg/dL 70-110 H 8775065370) CREATININE (test code 1.22 mg/dL 0.6-1.25 = 0938984292) CALCIUM (test code = 9.4 mg/dL 8.6-10.6 1738834133) eGFR (test code = mL/min/1.73m2 4128581351) ALYSSA (test code = ALYSSA) Association of [...] tests). Lab Interpretation Abnormal (test code = 21327-0) [facility] [id number] 10:06:48 Test Item Value Reference Range Interpretation Comments NT-proBNP (test code 2940 pg/mL See_Comment H [Autom ated = 1385687018) message] The system which generated this result transmitted reference range : <=450. The reference range was not used to interpret this result as normal/abnormal . ALYSSA (test code = ALYSSA) Biotin has been reported to cause a negative bias, interpret results relative to patient's use of biotin. Lab Interpretation Abnormal (test code = 58530-7) [facility] (NA, K, CL, CO2, GLUCOSE, BUN, CREATININE, CA)2022-05-29 09:58:43 Test Item Value Reference Range Interpretation Comments NA (test code = 133 mmol/L 135-145 L 9985782895) K (test code = 3.5 mmol/L 3.5-5 4762129550) CL (test code = 93 mmol/L 98-108 L 2019555318) CO2 TOTAL (test code = 30 mmol/L 23-31 4859755050) AGAP (test code = 2-16 4509712558) BUN (test code = 31 mg/dL 7-23 H 6289089597) GLUCOSE (test code = 167 mg/dL 70-110 H 8194872338) CREATININE (test code = 1.24 mg/dL 0.6-1.25 2368658068) CALCIUM (test code = 9.4 mg/dL 8.6-10.6 5983429197) eGFR (test code = mL/min/1.73m2 6485507932) ALYSSA (test code = ALYSSA) Association of [...] tests). Lab Interpretation Abnormal (test code = 22232-2) [facility] WITH [id number] 08:08:05 Test Item Value Reference Range Interpretation [...] RDW-SD (test code = 47.3 fL 38.5-51.6 26088-2) RDW-CV (test code = 14.0 % 12.1-15.4 788-0) PLT (test code = See_Comment [Automated 777-3) message] The sy stem which generated this result transmitted reference range : 150 - 328 10*3/ ?L. The reference r corey was not used to interpret this result as normal/abnormal . MPV (test code = 9.6 fL 9.8-13 L 84925-3) NRBC/100 WBC (test See_Comment [Automat ed code = 4101571342) message] The system which generated this result transmitted reference range : 0.0 - 10.0 /100 WBCs. The refer ence range was not u sed to interpret th is result as normal/abnormal . NRBC x10^3 (test code See_Comment [Auto mated = 6542150060) message] The s ystem which generated this result transmitted reference range : 10*3/?L. The reference range was not used to interpret this result as normal/abnormal . GRAN MAT (NEUT) % 65.6 % (test code = 770-8) IMM GRAN % (test code 0.40 % = 2029657331) LYMPH % (test code = 20.0 % 736-9) MONO % (test code = 10.4 % 5905-5) EOS % (test code = 3.1 % 713-8) BASO % (test code = 0.5 % 706-2) GRAN MAT x10^3(ANC) 3.58 10*3/uL 1.99-6.95 (test code = 8047135822) IMM GRAN x10^3 (test 0-0.06 code = 3987800394) LYMPH x10^3 (test code 1.09 10*3/uL 1.09-3.23 = 731-0) MONO x10^3 (test code 0.57 10*3/uL 0.36-1.02 = 742-7) EOS x10^3 (test code = 0.17 10*3/uL 0.06-0.53 711-2) BASO x10^3 (test code 0.03 10*3/uL 0.01-0.09 = 704-7) Lab Interpretation Abnormal (test code = 93352-5) [facility] [id number] 10:55:38 Test Item Value Reference Range Interpretation Comments NT-proBNP (test code 3040 pg/mL See_Comment H [Autom ated = 1294820369) message] The system which generated this result transmitted reference range : <=450. The reference range was not used to interpret this result as normal/abnormal . ALYSSA (test code = ALYSSA) Biotin has been reported to cause a negative bias, interpret results relative to patient's use of biotin. Lab Interpretation Abnormal (test code = 77626-0) [facility] (NA, K, CL, CO2, GLUCOSE, BUN, CREATININE, CA)2022-05-27 10:49:39 Test Item Value Reference Range Interpretation Comments NA (test code = 134 mmol/L 135-145 L 9412152672) K (test code = 4.1 mmol/L 3.5-5 1402910580) CL (test code = 96 mmol/L 98-108 L 0649885230) CO2 TOTAL (test code = 31 mmol/L 23-31 5747838279) AGAP (test code = 2-16 3431291502) BUN (test code = 28 mg/dL 7-23 H 0994511508) GLUCOSE (test code = 216 mg/dL 70-110 H 4907962613) CREATININE (test code = 1.07 mg/dL 0.6-1.25 6563303168) CALCIUM (test code = 8.8 mg/dL 8.6-10.6 6290086839) eGFR (test code = mL/min/1.73m2 9859027573) ALYSSA (test code = ALYSSA) Association of [...] tests). Lab Interpretation Abnormal (test code = 06876-1) [facility]22-[facility] 00:13:45 Test Item Value Reference Range Interpretation Comments Height (test code = in 3692226829) Weight (test code = lbs 4562539309) Systolic BP (test code = mmHg 1242755029) Diastolic BP (test code mmHg = 6580759370) Heart Rate (test code = bpm 1557290194) LVOT stroke volume (test 31.80 cm3 code = 6437353731) EF(Teich) (test code = 18.40 % 0507820367) LVIDD (test code = 6.30 cm 8920874834) LVIDS (test code = 5.80 cm 0666475446) IVS (test code = 0.75 cm 7740714616) LVPWD (test code = 0.94 cm 6460933434) LVOT diameter (test code 1.95 cm = 1694434893) FS (test code = 9 % 8265003945) MV Peak E Nestor (test code 121.4 cm/s = 2322334776) E wave decelartion time 0.09 s (test code = 4539858001) MV E/e' septal (test 5.0 cm/s code = 4290634446) LA Volume Index (BP) 42.0 mL/m2 (test code = 4867106008) LA volume (BP) (test 74.6 mL code = 5338520466) LVOT peak nestor (test code 79.9 cm/s = 6814928390) LVOT mn grad (test code mmHg = 7585071075) BSA (test code = 1.78 m2 2122127741) LA size (test code = 2.6 cm 8972182654) LAV(MOD-sp2) (test code 82.10 mL = 5450206367) LAV(MOD-sp4) (test code 60.20 mL = 9685662505) Tapse (test code = 2.08 cm 6545739689) AV LVOT peak gradient mmHg (test code = 9772101779) LVOT peak VTI (test code 10.6 cm = 0453671087) LV V1 mean (test code = 48.50 cm/s 8104983711) MV Prop V (test code = 44.70 cm/s 5311237819) Ao root annulus (test 3.5 cm code = 7182456574) Ao root diam (test code 3.50 cm = 4108971640) Aortic root (test code = 3.5 cm 1603922591) PW (test code = 0.94 cm 0.6-1.3 3291254047) EF - 2D (test code = 18.40 % 48463990) Interventricular Septum 0.75 cm Diastolic Thickness by 2D (test code = 9844110) MV Peak A Nestor (test code 26.3 cm/s = 2073844660) E/A ratio (test code = ratio 4888839946) Aortic valve mean 113.4 cm/s velocity (test code = 9669043225) Ao peak nestor (test code = 150.5 cm/s 1916689242) Ao VTI (test code = 21.6 cm 5676953597) AV area by cont VTI 1.5 cm2 (test code = 2287058225) AV area peak nestor (test 1.6 cm2 code = 8473461158) Ao max PG (test code = 9.10 mm[Hg] 0536463658) AV peak gradient (test mmHg code = 7156774021) AV valve area (test code 1.48 cm2 = 4206532050) AV mean gradient (test mmHg code = 0394510215) Radiology Study observation (narrative) (test code = 13850-1) ALYSSA (test code = ALYSSA) Formatting of [...] mL of Lumason ultrasound enhancing agent used. [facility]LKOEC9857-78-60 20:13:11 Test Item Value Reference Interpretation Comments Range D-DIMER (test code = See_Comment H [Autom ated 4707089676) message] The system which generated this result [...] diagnosis. Lab Interpretation Abnormal (test code = 55964-6) [facility] [id number] 14:26:05 Test Item Value Reference Interpretation Comments Range TROPONIN I (test 0.069 ng/mL See_Comment H [Automated code = 0680585280) message] The system which generated this result [...] biotin. Lab Interpretation Abnormal (test code = 74057-0) [facility] METABOLIC PANEL (NA, K, CL, CO2, GLUCOSE, BUN, CREATININE, CA)2022-05-25 14:14:22 Test Item Value Reference Range Interpretation Comments NA (test code = 136 mmol/L 135-145 7624673925) K (test code = 3.8 mmol/L 3.5-5 1917064352) CL (test code = 102 mmol/L 98-108 5469207186) CO2 TOTAL (test code 26 mmol/L 23-31 = 8445110368) AGAP (test code = 2-16 3926018036) BUN (test code = 19 mg/dL 7-23 7743789161) GLUCOSE (test code = 94 mg/dL 70-110 2157931997) CREATININE (test code 0.97 mg/dL 0.6-1.25 = 8287404562) CALCIUM (test code = 8.8 mg/dL 8.6-10.6 9869959912) eGFR (test code = mL/min/1.73m2 8334259524) ALYSSA (test code = ALYSSA) Association of [...] or urine or abnormalities in imaging tests). [facility] [id number] 18:14:14 Test Item Value Reference Range Interpretation Comments NT-proBNP (test code 7300 pg/mL See_Comment H [Autom ated = 2754031893) message] The system which generated this result transmitted reference range : <=450. The reference range was not used to interpret this result as normal/abnormal . ALYSSA (test code = ALYSSA) Biotin has been reported to cause a negative bias, interpret results relative to patient's use of biotin. Lab Interpretation Abnormal (test code = 84491-2) [facility] GLUCOSE (AUTOMATED)2022-05-24 16:04:15 Test Item Value Reference Range Interpretation Comments POCT GLU (test code = 9175887414) 107 mg/dL 70-110 Lab Interpretation (test code = Normal 52751-3) [facility]. METABOLIC PANEL (03581)2022-05-24 05:16:06 Test Item Value Reference Range Interpretation Comments NA (test code = 134 mmol/L 135-145 L 0384961023) K (test code = 3.8 mmol/L 3.5-5 1303036277) CL (test code = 100 mmol/L 98-108 5381763522) CO2 TOTAL (test code = 23 mmol/L 23-31 3344591737) AGAP (test code = 2-16 8074461938) BUN (test code = 18 mg/dL 7-23 3535849468) GLUCOSE (test code = 179 mg/dL 70-110 H 6814171341) CREATININE (test code = 1.07 mg/dL 0.6-1.25 6314284951) TOTAL BILI (test code = 1.4 mg/dL 0.1-1.1 H 2624246145) CALCIUM (test code = 9.1 mg/dL 8.6-10.6 8068589379) T PROTEIN (test code = 6.0 g/dL 6.3-8.2 L 2299705315) ALBUMIN (test code = 3.6 g/dL 3.5-5 3777507265) ALK PHOS (test code = 98 U/L 34-122 1122728956) ALTv (test code = 14 U/L 5-50 1742-6) AST(SGOT) (test code = 23 U/L 13-40 9012989227) eGFR (test code = mL/min/1.73m2 0337210561) ALYSSA (test code = ALYSSA) Association of [...] tests). Lab Interpretation Abnormal (test code = 27690-9) [facility] [id number] 04:57:41 Test Item Value Reference Interpretation Comments Range TROPONIN I (test 0.086 ng/mL See_Comment H [Automated code = 6550881203) message] The system which generated this result [...] biotin. Lab Interpretation Abnormal (test code = 72343-4) [facility] [id number] 04:40:23 Test Item Value Reference Range Interpretation Comments WBC (test code = See_Comment [Automated 8721-2) message] The sy stem which generated this result transmitted reference range : 4.20 - 10.70 10*3/?L. The reference range was not used to interpret this result as normal/abnormal . RBC (test code = See_Comment L [Automated 049-8) message] The sy stem which generated this [...] RDW-SD (test code = 48.0 fL 38.5-51.6 98936-6) RDW-CV (test code = 14.1 % 12.1-15.4 788-0) PLT (test code = See_Comment [Automated 777-3) message] The sy stem which generated this result transmitted reference range : 150 - 328 10*3/ ?L. The reference r corey was not used to interpret this result as normal/abnormal . MPV (test code = 9.8 fL 9.8-13 64191-0) NRBC/100 WBC (test See_Comment [Automat ed code = 2252426629) message] The system which generated this result transmitted reference range : 0.0 - 10.0 /100 WBCs. The refer ence range was not u sed to interpret th is result as normal/abnormal . NRBC x10^3 (test code See_Comment [Auto mated = 1917747928) message] The s ystem which generated this result transmitted reference range : 10*3/?L. The reference range was not used to interpret this result as normal/abnormal . GRAN MAT (NEUT) % 77.1 % (test code = 770-8) IMM GRAN % (test code 0.30 % = 8821257485) LYMPH % (test code = 11.4 % 736-9) MONO % (test code = 9.5 % 5905-5) EOS % (test code = 1.4 % 713-8) BASO % (test code = 0.3 % 706-2) GRAN MAT x10^3(ANC) 5.06 10*3/uL 1.99-6.95 (test code = 5368434252) IMM GRAN x10^3 (test 0-0.06 code = 9323947527) LYMPH x10^3 (test code 0.75 10*3/uL 1.09-3.23 L = 731-0) MONO x10^3 (test code 0.62 10*3/uL 0.36-1.02 = 742-7) EOS x10^3 (test code = 0.09 10*3/uL 0.06-0.53 711-2) BASO x10^3 (test code 0.01-0.09 = 704-7) Lab Interpretation Abnormal (test code = 94707-0) [facility]2022-04-25 09:38:00 Test Item Value Reference Range Interpretation Comments Chloride Lvl (test code = Chloride Lvl) 98 95-109 [place] 951582-04-25 09:38:00 Test Item Value Reference Range Interpretation Comments CO2 (test code = CO2) 25 24-32 [place] 951582-04-25 09:38:00 Test Item Value Reference Range Interpretation Comments AGAP (test code = AGAP) 13.8 10.0-20.0 [place] 951582-04-25 09:38:00 Test Item Value Reference Range Interpretation Comments Calcium Lvl (test code = Calcium Lvl) 9.9 8.5-10.5 [place] 951582-04-25 09:38:00 Test Item Value Reference Range Interpretation Comments eGFR (test code = eGFR) 59 [place] 951582-04-25 09:38:00 Test Item Value Reference Range Interpretation Comments Phosphorus (test code = Phosphorus) 4.3 2.5-4.5 [place] 951582-04-25 09:38:00 Test Item Value Reference Range Interpretation Comments Magnesium Lvl (test code = Magnesium 2.4 1.8-2.4 Lvl) [place] 444052-04-25 09:38:00 Test Item Value Reference Range Interpretation Comments WBC (test code = WBC) 5.1 3.7-10.4 [place] [address]-04-25 09:38:00 Test Item Value Reference Range Interpretation Comments RBC (test code = RBC) 4.61 4.70-6.10 [place] [address]-04-25 09:38:00 Test Item Value Reference Range Interpretation Comments Hgb (test code = Hgb) 14.9 14.0-18.0 [place] [address]-04-25 09:38:00 Test Item Value Reference Range Interpretation Comments Hct (test code = Hct) 43.0 42.0-54.0 [place] [address]-04-25 09:38:00 Test Item Value Reference Range Interpretation Comments MCV (test code = MCV) 93.3 80.0-94.0 [place] [address]-04-25 09:38:00 Test Item Value Reference Range Interpretation Comments MCH (test code = MCH) 32.3 pg 27.0-31.0 [place] 444052-04-25 09:38:00 Test Item Value Reference Range Interpretation Comments MCHC (test code = MCHC) 34.6 32.0-36.0 [place] 444052-04-25 09:38:00 Test Item Value Reference Range Interpretation Comments RDW (test code = RDW) 13.8 11.5-14.5 [place] [address]-04-25 09:38:00 Test Item Value Reference Range Interpretation Comments Platelet (test code = Platelet) 210 133-450 [place] 444052-04-25 09:38:00 Test Item Value Reference Range Interpretation Comments MPV (test code = MPV) 8.2 7.4-10.4 [place] 444052-04-25 09:38:00 Test Item Value Reference Range Interpretation Comments Segs (test code = Segs) 50.3 45.0-75.0 [place] 444052-04-25 09:38:00 Test Item Value Reference Range Interpretation Comments Lymphocytes (test code = Lymphocytes) 32.2 20.0-40.0 [place] 444052-04-25 09:38:00 Test Item Value Reference Range Interpretation Comments Monocytes (test code = Monocytes) 13.4 2.0-12.0 [place] [address]-04-25 09:38:00 Test Item Value Reference Range Interpretation Comments Eosinophils (test code = 3.0 See_Comment [A utomated message] The Eosinophils) system which ge nerated this result tra nsmitted reference range : <=4.0. The reference r corey was not used to int erpret this result as normal/abnormal . [place] 444052-04-25 09:38:00 Test Item Value Reference Range Interpretation Comments Basophils (test code = 1.1 See_Comment [Aut omated message] The Basophils) system which ge nerated this result tra nsmitted reference range : <=1.0. The reference r corey was not used to int erpret this result as normal/abnormal . [facility]339[facility] 09:38:00 Test Item Value Reference Range Interpretation Comments Neutrophils # (test code = Neutrophils 2.5 1.5-8.1 #) [facility]DszlrbrKHXGILSQMK7536-68-22 09:38:00 Test Item Value Reference Range Interpretation Comments Lymphocytes # (test code = Lymphocytes 1.6 1.0-5.5 #) [facility]VmpvwboTBTKJPTIMS5978-78-26 09:38:00 Test Item Value Reference Range Interpretation Comments Monocytes # (test code 0.7 See_Comment [Aut omated message] The = Monocytes #) system which generated this result tra nsmitted reference range : <=0.8. The reference r corey was not used to int erpret this result as normal/abnormal . [facility] CenterRhdhiwxYVNWBHISMG3720-35-48 09:38:00 Test Item Value Reference Range Interpretation Comments Eosinophils # (test code 0.2 See_Comment [A utomated message] The = Eosinophils #) system whic h generated this result tra nsmitted reference range : <=0.5. The reference r corey was not used to int erpret this result as normal/abnormal . [facility] CenterOskwrszLCWIQCRTVS4977-23-34 09:38:00 Test Item Value Reference Range Interpretation Comments Basophils # (test code 0.1 See_Comment [Aut omated message] The = Basophils #) system which generated this result tra nsmitted reference range : <=0.2. The reference r corey was not used to int erpret this result as normal/abnormal . [facility]2022-04-25 09:38:00 Test Item Value Reference Range Interpretation Comments Ca Ion WB (test code = Ca Ion WB) 1.17 1.05-1.25 [place] 146332-04-25 09:38:00 Test Item Value Reference Range Interpretation Comments Ca Ion at pH 7.4 WB (test code = Ca Ion 1.12 1.05-1.25 at pH 7.4 WB) [facility]2022-04-25 09:38:00 Test Item Value Reference Range Interpretation Comments Glucose Lvl (test code = Glucose Lvl) 198 70-99 [facility]2022-04-25 09:38:00 Test Item Value Reference Range Interpretation Comments BUN (test code = BUN) 37 7-22 [facility]2022-04-25 09:38:00 Test Item Value Reference Range Interpretation Comments Creatinine Lvl (test code = Creatinine 1.15 0.50-1.40 Lvl) [facility]2022-04-25 09:38:00 Test Item Value Reference Range Interpretation Comments Sodium Lvl (test code = Sodium Lvl) 133 135-145 [facility]2022-04-25 09:38:00 Test Item Value Reference Range Interpretation Comments Potassium Lvl (test code = Potassium 3.8 3.5-5.1 Lvl) [facility]2022-04-24 10:17:00 Test Item Value Reference Range Interpretation Comments Phosphorus (test code = Phosphorus) 4.0 2.5-4.5 [facility]2022-04-24 10:17:00 Test Item Value Reference Range Interpretation Comments Magnesium Lvl (test code = Magnesium 2.2 1.8-2.4 Lvl) [facility]2022-04-24 10:17:00 Test Item Value Reference Range Interpretation Comments Glucose Lvl (test code = Glucose Lvl) 134 70-99 [facility]2022-04-24 10:17:00 Test Item Value Reference Range Interpretation Comments BUN (test code = BUN) 35 7-22 [facility]2022-04-24 10:17:00 Test Item Value Reference Range Interpretation Comments Creatinine Lvl (test code = Creatinine 1.06 0.50-1.40 Lvl) [facility]2022-04-24 10:17:00 Test Item Value Reference Range Interpretation Comments Sodium Lvl (test code = Sodium Lvl) 134 135-145 [facility]2022-04-24 10:17:00 Test Item Value Reference Range Interpretation Comments Potassium Lvl (test code = Potassium 4.1 3.5-5.1 Lvl) [facility]2022-04-24 10:17:00 Test Item Value Reference Range Interpretation Comments Chloride Lvl (test code = Chloride Lvl) 99 95-109 [facility]2022-04-24 10:17:00 Test Item Value Reference Range Interpretation Comments CO2 (test code = CO2) 26 24-32 [place] 951582-04-24 10:17:00 Test Item Value Reference Range Interpretation Comments Calcium Lvl (test code = Calcium Lvl) 9.3 8.5-10.5 [facility]2022-04-24 10:17:00 Test Item Value Reference Range Interpretation Comments AGAP (test code = AGAP) 13.1 10.0-20.0 [facility]2022-04-24 10:17:00 Test Item Value Reference Range Interpretation Comments eGFR (test code = eGFR) 65 [facility]ufDPWWXYLJJT1761-22-61 10:17:00 Test Item Value Reference Range Interpretation Comments WBC (test code = WBC) 5.6 3.7-10.4 [place] 444052-04-24 10:17:00 Test Item Value Reference Range Interpretation Comments RBC (test code = RBC) 4.33 4.70-6.10 [place] 444052-04-24 10:17:00 Test Item Value Reference Range Interpretation Comments Hgb (test code = Hgb) 13.7 14.0-18.0 [place] 444052-04-24 10:17:00 Test Item Value Reference Range Interpretation Comments Hct (test code = Hct) 40.0 42.0-54.0 [place] 444052-04-24 10:17:00 Test Item Value Reference Range Interpretation Comments MCV (test code = MCV) 92.4 80.0-94.0 [place] [address]-04-24 10:17:00 Test Item Value Reference Range Interpretation Comments MCH (test code = MCH) 31.5 pg 27.0-31.0 [place] 444052-04-24 10:17:00 Test Item Value Reference Range Interpretation Comments MCHC (test code = MCHC) 34.1 32.0-36.0 [place] 444052-04-24 10:17:00 Test Item Value Reference Range Interpretation Comments RDW (test code = RDW) 13.6 11.5-14.5 [place] 444052-04-24 10:17:00 Test Item Value Reference Range Interpretation Comments Platelet (test code = Platelet) 191 133-450 [facility]LeaivwnQJVGLUKLYA5818-57-42 10:17:00 Test Item Value Reference Range Interpretation Comments MPV (test code = MPV) 8.1 7.4-10.4 [facility] CenterEosxzytHXSLNJZUGY5766-90-13 10:17:00 Test Item Value Reference Range Interpretation Comments Segs (test code = Segs) 57.4 45.0-75.0 [facility] CenterWiygtabJNUHDKHYFD4189-58-90 10:17:00 Test Item Value Reference Range Interpretation Comments Lymphocytes (test code = Lymphocytes) 26.6 20.0-40.0 [place] 444052-04-24 10:17:00 Test Item Value Reference Range Interpretation Comments Monocytes (test code = Monocytes) 11.7 2.0-12.0 [facility] CenterZvtfvxtIQHNHWASTN5167-80-85 10:17:00 Test Item Value Reference Range Interpretation Comments Eosinophils (test code = 3.5 See_Comment [A utomated message] The Eosinophils) system which ge nerated this result tra nsmitted reference range : <=4.0. The reference r corey was not used to int erpret this result as normal/abnormal . [facility] CenterIoajjxhGSWAUFJSVL3139-34-05 10:17:00 Test Item Value Reference Range Interpretation Comments Basophils (test code = 0.8 See_Comment [Aut omated message] The Basophils) system which ge nerated this result tra nsmitted reference range : <=1.0. The reference r corey was not used to int erpret this result as normal/abnormal . [facility] CenterDuseouyXEJGDSFJAQ3385-33-00 10:17:00 Test Item Value Reference Range Interpretation Comments Neutrophils # (test code = Neutrophils 3.2 1.5-8.1 #) [facility] CenterSyyfkhqCUHOZVMBEL3249-42-53 10:17:00 Test Item Value Reference Range Interpretation Comments Lymphocytes # (test code = Lymphocytes 1.5 1.0-5.5 #) [facility] CenterLbshnlxDZYLIKBSOW0780-51-02 10:17:00 Test Item Value Reference Range Interpretation Comments Monocytes # (test code 0.7 See_Comment [Aut omated message] The = Monocytes #) system which generated this result tra nsmitted reference range : <=0.8. The reference r corey was not used to int erpret this result as normal/abnormal . [place] [address]-04-24 10:17:00 Test Item Value Reference Range Interpretation Comments Eosinophils # (test code 0.2 See_Comment [A utomated message] The = Eosinophils #) system whic h generated this result tra nsmitted reference range : <=0.5. The reference r corey was not used to int erpret this result as normal/abnormal . [facility]2022-04-24 10:17:00 Test Item Value Reference Range Interpretation Comments Ca Ion WB (test code = Ca Ion WB) 1.19 1.05-1.25 [facility]2022-04-24 10:17:00 Test Item Value Reference Range Interpretation Comments Ca Ion at pH 7.4 WB (test code = Ca Ion 1.19 1.05-1.25 at pH 7.4 WB) [facility]2022-04-22 06:26:00 Test Item Value Reference Range Interpretation Comments Magnesium Lvl (test code = Magnesium 2.4 1.8-2.4 Lvl) [facility]2022-04-22 06:26:00 Test Item Value Reference Range Interpretation Comments Glucose Lvl (test code = Glucose Lvl) 130 70-99 [facility]2022-04-22 06:26:00 Test Item Value Reference Range Interpretation Comments BUN (test code = BUN) 22 7-22 [facility]2022-04-22 06:26:00 Test Item Value Reference Range Interpretation Comments Creatinine Lvl (test code = Creatinine 1.31 0.50-1.40 Lvl) [facility]2022-04-22 06:26:00 Test Item Value Reference Range Interpretation Comments Sodium Lvl (test code = Sodium Lvl) 137 135-145 [place] 951582-04-22 06:26:00 Test Item Value Reference Range Interpretation Comments Potassium Lvl (test code = Potassium 3.8 3.5-5.1 Lvl) [place] 951582-04-22 06:26:00 Test Item Value Reference Range Interpretation Comments Chloride Lvl (test code = Chloride Lvl) 101 95-109 [facility]2022-04-22 06:26:00 Test Item Value Reference Range Interpretation Comments CO2 (test code = CO2) 29 24-32 [place] 951582-04-22 06:26:00 Test Item Value Reference Range Interpretation Comments AGAP (test code = AGAP) 10.8 10.0-20.0 [place] 951582-04-22 06:26:00 Test Item Value Reference Range Interpretation Comments Calcium Lvl (test code = Calcium Lvl) 9.3 8.5-10.5 [place] 951582-04-22 06:26:00 Test Item Value Reference Range Interpretation Comments B/C Ratio (test code = B/C Ratio) 17 1 6-25 [place] 951582-04-22 06:26:00 Test Item Value Reference Range Interpretation Comments Total Protein (test code = Total 6.9 6.4-8.4 Protein) [place] 951582-04-22 06:26:00 Test Item Value Reference Range Interpretation Comments Albumin Lvl (test code = Albumin Lvl) 3.3 3.5-5.0 [place] 951582-04-22 06:26:00 Test Item Value Reference Range Interpretation Comments Globulin (test code = Globulin) 3.6 2.7-4.2 [place] 951582-04-22 06:26:00 Test Item Value Reference Range Interpretation Comments A/G Ratio (test code = A/G Ratio) 0.9 1 0.7-1.6 [place] 951582-04-22 06:26:00 Test Item Value Reference Range Interpretation Comments ALT (test code = ALT) 15 See_Comment [Auto mated message] The system which ge nerated this result transmit diamante reference range : <=65. The reference range was not used to interpr et this result as amaury l/abnormal. [place] 951582-04-22 06:26:00 Test Item Value Reference Range Interpretation Comments AST (test code = AST) 14 See_Comment [Auto mated message] The system which ge nerated this result transmit diamante reference range : <=37. The reference range was not used to interpr et this result as amaury l/abnormal. [place] 951582-04-22 06:26:00 Test Item Value Reference Range Interpretation Comments Alk Phos (test code = Alk Phos) 68 39-136 [facility] [id number] 06:26:00 Test Item Value Reference Range Interpretation Comments Bili Total (test code = Bili Total) 1.3 0.2-1.3 [place] 951582-04-22 06:26:00 Test Item Value Reference Range Interpretation Comments eGFR (test code = eGFR) 50 [place] 951582-04-22 06:26:00 Test Item Value Reference Range Interpretation Comments Phosphorus (test code = Phosphorus) 3.6 2.5-4.5 [place] 444052-04-22 06:26:00 Test Item Value Reference Range Interpretation Comments Segs (test code = Segs) 64.9 45.0-75.0 [place] 444052-04-22 06:26:00 Test Item Value Reference Range Interpretation Comments Lymphocytes (test code = Lymphocytes) 20.3 20.0-40.0 [place] 444052-04-22 06:26:00 Test Item Value Reference Range Interpretation Comments Monocytes (test code = Monocytes) 10.4 2.0-12.0 [place] 444052-04-22 06:26:00 Test Item Value Reference Range Interpretation Comments Eosinophils (test code = 3.3 See_Comment [A utomated message] The Eosinophils) system which ge nerated this result tra nsmitted reference range : <=4.0. The reference r corey was not used to int erpret this result as normal/abnormal . [place] 444052-04-22 06:26:00 Test Item Value Reference Range Interpretation Comments Basophils (test code = 1.1 See_Comment [Aut omated message] The Basophils) system which ge nerated this result tra nsmitted reference range : <=1.0. The reference r corey was not used to int erpret this result as normal/abnormal . [place] 444052-04-22 06:26:00 Test Item Value Reference Range Interpretation Comments Neutrophils # (test code = Neutrophils 4.2 1.5-8.1 #) [place] 444052-04-22 06:26:00 Test Item Value Reference Range Interpretation Comments Lymphocytes # (test code = Lymphocytes 1.3 1.0-5.5 #) [place] 444052-04-22 06:26:00 Test Item Value Reference Range Interpretation Comments Monocytes # (test code 0.7 See_Comment [Aut omated message] The = Monocytes #) system which generated this result tra nsmitted reference range : <=0.8. The reference r corey was not used to int erpret this result as normal/abnormal . [facility] HospitalCfentpkHLFPFDDPNM1598-04-10 06:26:00 Test Item Value Reference Range Interpretation Comments Eosinophils # (test code 0.2 See_Comment [A utomated message] The = Eosinophils #) system whic h generated this result tra nsmitted reference range : <=0.5. The reference r corey was not used to int erpret this result as normal/abnormal . [facility] HospitalUozpoqePBUJYYGFJG4371-82-44 06:26:00 Test Item Value Reference Range Interpretation Comments Basophils # (test code 0.1 See_Comment [Aut omated message] The = Basophils #) system which generated this result tra nsmitted reference range : <=0.2. The reference r corey was not used to int erpret this result as normal/abnormal . [facility] HospitalAvuwaafSFXLPDVMMJ4516-64-26 06:26:00 Test Item Value Reference Range Interpretation Comments WBC (test code = WBC) 6.4 3.7-10.4 [facility] CenterWaghrrpJFOBTXAFZZ9084-50-10 06:26:00 Test Item Value Reference Range Interpretation Comments RBC (test code = RBC) 4.38 4.70-6.10 [facility] CenterLapuyzkDWTNBGJPNF5528-61-42 06:26:00 Test Item Value Reference Range Interpretation Comments Hgb (test code = Hgb) 13.8 14.0-18.0 [facility] CenterFnvrygnTKYAIJPYBP8894-26-75 06:26:00 Test Item Value Reference Range Interpretation Comments Hct (test code = Hct) 40.6 42.0-54.0 [facility] CenterXrmalpxUOPUTTSWWH2622-69-91 06:26:00 Test Item Value Reference Range Interpretation Comments MCV (test code = MCV) 92.9 80.0-94.0 [facility] CenterRglxmiwXMODMGEXUD4507-92-32 06:26:00 Test Item Value Reference Range Interpretation Comments MCH (test code = MCH) 31.5 pg 27.0-31.0 [facility] HospitalWenpdlqGDXPHQCXNV2124-80-89 06:26:00 Test Item Value Reference Range Interpretation Comments MCHC (test code = MCHC) 34.0 32.0-36.0 [facility] CenterHwdxhusRCIPOIUDVX3753-36-38 06:26:00 Test Item Value Reference Range Interpretation Comments RDW (test code = RDW) 13.7 11.5-14.5 [facility] CenterYjuuivePWTWXCARVN4167-89-89 06:26:00 Test Item Value Reference Range Interpretation Comments Platelet (test code = Platelet) 194 133-450 [facility]eqvQNYCNAFROH4943-75-75 06:26:00 Test Item Value Reference Range Interpretation Comments MPV (test code = MPV) 8.0 7.4-10.4 [facility] HospitalCARDIAC [id number] 11:15:00 Test Item Value Reference Range Interpretation Comments HS Troponin I (test code = HS Troponin 114 I) [facility]2022-04-21 08:36:00 Test Item Value Reference Range Interpretation Comments Magnesium Lvl (test code = Magnesium 2.3 1.8-2.4 Lvl) [facility]2022-04-21 08:36:00 Test Item Value Reference Range Interpretation Comments Phosphorus (test code = Phosphorus) 3.1 2.5-4.5 [facility]2022-04-21 08:36:00 Test Item Value Reference Range Interpretation Comments Glucose Lvl (test code = Glucose Lvl) 235 70-99 [facility]2022-04-21 08:36:00 Test Item Value Reference Range Interpretation Comments BUN (test code = BUN) 19 7-22 [facility]2022-04-21 08:36:00 Test Item Value Reference Range Interpretation Comments Creatinine Lvl (test code = Creatinine 1.37 0.50-1.40 Lvl) [facility]2022-04-21 08:36:00 Test Item Value Reference Range Interpretation Comments Sodium Lvl (test code = Sodium Lvl) 135 135-145 [facility]2022-04-21 08:36:00 Test Item Value Reference Range Interpretation Comments Potassium Lvl (test code = Potassium 3.7 3.5-5.1 Lvl) [facility]2022-04-21 08:36:00 Test Item Value Reference Range Interpretation Comments Chloride Lvl (test code = Chloride Lvl) 101 95-109 [facility]2022-04-21 08:36:00 Test Item Value Reference Range Interpretation Comments CO2 (test code = CO2) 24 24-32 [place] 951582-04-21 08:36:00 Test Item Value Reference Range Interpretation Comments AGAP (test code = AGAP) 13.7 10.0-20.0 [place] 951582-04-21 08:36:00 Test Item Value Reference Range Interpretation Comments Calcium Lvl (test code = Calcium Lvl) 9.1 8.5-10.5 [place] 951582-04-21 08:36:00 Test Item Value Reference Range Interpretation Comments B/C Ratio (test code = B/C Ratio) 14 1 6-25 [place] [address]-04-21 08:36:00 Test Item Value Reference Range Interpretation Comments Total Protein (test code = Total 7.2 6.4-8.4 Protein) [place] 951582-04-21 08:36:00 Test Item Value Reference Range Interpretation Comments Albumin Lvl (test code = Albumin Lvl) 3.5 3.5-5.0 [place] [address]-04-21 08:36:00 Test Item Value Reference Range Interpretation Comments Globulin (test code = Globulin) 3.7 2.7-4.2 [place] [address]-04-21 08:36:00 Test Item Value Reference Range Interpretation Comments A/G Ratio (test code = A/G Ratio) 0.9 1 0.7-1.6 [place] 951582-04-21 08:36:00 Test Item Value Reference Range Interpretation Comments ALT (test code = ALT) 18 See_Comment [Auto mated message] The system which ge nerated this result transmit diamante reference range : <=65. The reference range was not used to interpr et this result as amaury l/abnormal. [facility] [id number] 08:36:00 Test Item Value Reference Range Interpretation Comments AST (test code = AST) 16 See_Comment [Auto mated message] The system which ge nerated this result transmit diamante reference range : <=37. The reference range was not used to interpr et this result as amaury l/abnormal. [place] 951582-04-21 08:36:00 Test Item Value Reference Range Interpretation Comments Alk Phos (test code = Alk Phos) 71 39-136 [place] 951582-04-21 08:36:00 Test Item Value Reference Range Interpretation Comments Bili Total (test code = Bili Total) 1.1 0.2-1.3 [place] 951582-04-21 08:36:00 Test Item Value Reference Range Interpretation Comments eGFR (test code = eGFR) 48 [place] 951582-04-21 08:36:00 Test Item Value Reference Range Interpretation Comments Bili Direct (test code 0.2 See_Comment [Aut omated message] The = Bili Direct) system which generated this result tra nsmitted reference range : <=0.3. The reference r corey was not used to int erpret this result as amaury l/abnormal. [place] 444052-04-21 08:36:00 Test Item Value Reference Range Interpretation Comments WBC (test code = WBC) 7.7 3.7-10.4 [place] [address]-04-21 08:36:00 Test Item Value Reference Range Interpretation Comments RBC (test code = RBC) 4.55 4.70-6.10 [place] [address]-04-21 08:36:00 Test Item Value Reference Range Interpretation Comments Hgb (test code = Hgb) 14.3 14.0-18.0 [place] [address]-04-21 08:36:00 Test Item Value Reference Range Interpretation Comments Hct (test code = Hct) 42.6 42.0-54.0 [place] [address]-04-21 08:36:00 Test Item Value Reference Range Interpretation Comments MCV (test code = MCV) 93.7 80.0-94.0 [place] [address]-04-21 08:36:00 Test Item Value Reference Range Interpretation Comments MCH (test code = MCH) 31.4 pg 27.0-31.0 [place] [address]-04-21 08:36:00 Test Item Value Reference Range Interpretation Comments MCHC (test code = MCHC) 33.5 32.0-36.0 [place] [address]-04-21 08:36:00 Test Item Value Reference Range Interpretation Comments RDW (test code = RDW) 13.6 11.5-14.5 [place] 444052-04-21 08:36:00 Test Item Value Reference Range Interpretation Comments Platelet (test code = Platelet) 242 133-450 [place] 444052-04-21 08:36:00 Test Item Value Reference Range Interpretation Comments MPV (test code = MPV) 8.0 7.4-10.4 [place] [address]-04-21 08:36:00 Test Item Value Reference Range Interpretation Comments PT (test code = PT) 13.2 s 12.0-14.7 [place] [address]-04-21 08:36:00 Test Item Value Reference Range Interpretation Comments INR (test code = INR) 1.01 1 0.85-1.17 [place] [address]-04-21 08:36:00 Test Item Value Reference Range Interpretation Comments PTT (test code = PTT) 24.7 s 22.9-35.8 [place] [address]-04-21 08:36:00 Test Item Value Reference Range Interpretation Comments Segs (test code = Segs) 61.0 45.0-75.0 [place] 444052-04-21 08:36:00 Test Item Value Reference Range Interpretation Comments Lymphocytes (test code = Lymphocytes) 24.8 20.0-40.0 [place] [address]-04-21 08:36:00 Test Item Value Reference Range Interpretation Comments Monocytes (test code = Monocytes) 9.1 2.0-12.0 [place] [address]-04-21 08:36:00 Test Item Value Reference Range Interpretation Comments Eosinophils (test code = 4.3 See_Comment [A utomated message] The Eosinophils) system which ge nerated this result tra nsmitted reference range : <=4.0. The reference r corey was not used to int erpret this result as normal/abnormal . [place] 444052-04-21 08:36:00 Test Item Value Reference Range Interpretation Comments Basophils (test code = 0.8 See_Comment [Aut omated message] The Basophils) system which ge nerated this result tra nsmitted reference range : <=1.0. The reference r corey was not used to int erpret this result as normal/abnormal . [place] 444052-04-21 08:36:00 Test Item Value Reference Range Interpretation Comments Neutrophils # (test code = Neutrophils 4.7 1.5-8.1 #) [facility] CenterFrvsfmxALRLEYAMMH9063-66-32 08:36:00 Test Item Value Reference Range Interpretation Comments Lymphocytes # (test code = Lymphocytes 1.9 1.0-5.5 #) [place] 444052-04-21 08:36:00 Test Item Value Reference Range Interpretation Comments Monocytes # (test code 0.7 See_Comment [Aut omated message] The = Monocytes #) system which generated this result tra nsmitted reference range : <=0.8. The reference r corey was not used to int erpret this result as normal/abnormal . [facility] CenterDqxrjmaPJMYUTJFXJ1071-05-03 08:36:00 Test Item Value Reference Range Interpretation Comments Eosinophils # (test code 0.3 See_Comment [A utomated message] The = Eosinophils #) system whic h generated this result tra nsmitted reference range : <=0.5. The reference r corey was not used to int erpret this result as normal/abnormal . [facility] CenterWyflqxnYUPGACYSKS4746-92-82 08:36:00 Test Item Value Reference Range Interpretation Comments Basophils # (test code 0.1 See_Comment [Aut omated message] The = Basophils #) system which generated this result tra nsmitted reference range : <=0.2. The reference r corey was not used to int erpret this result as normal/abnormal . [facility] HospitalFlowgramWPEBNGF6497-82-10 15:17:00 Test Item Value Reference Range Interpretation Comments HS Troponin I 1 Hr (test code = HS 114 Troponin I 1 Hr) [facility] [id number] 15:17:00 Test Item Value Reference Range Interpretation Comments HS Troponin I 0 to 1 Hour Delta (test -3 code = HS Troponin I 0 to 1 Hour Delta) [facility] [id number] 13:55:00 Test Item Value Reference Range Interpretation Comments HS Troponin I Baseline (test code = HS 117 Troponin I Baseline) [place] [address]-04-20 13:55:00 Test Item Value Reference Range Interpretation Comments Trig (test code = Trig) 128 [place] 418592-04-20 13:55:00 Test Item Value Reference Range Interpretation Comments Chol (test code = Chol) 86 [place] 418592-04-20 13:55:00 Test Item Value Reference Range Interpretation Comments HDL (test code = HDL) 50 [facility]nqkvmhPJVERV4909-82-70 13:55:00 Test Item Value Reference Range Interpretation Comments CHD Risk (test code = CHD Risk) 1.72 1 4.00-7.30 [facility]YwegdgrWJRKVZ9048-21-74 13:55:00 Test Item Value Reference Range Interpretation Comments LDL (Calculated) (test code = LDL 10 (Calculated)) [facility] HospitalYuwgubeOEBROM5099-47-83 13:55:00 Test Item Value Reference Range Interpretation Comments VLDL (test code = VLDL) [address] [facility] HospitalSPECIAL [id number] 13:55:00 Test Item Value Reference Range Interpretation Comments Hgb A1C (test code = Hgb A1C) 9.9 [facility] [employer] [id number] 12:59:00 Test Item Value Reference Range Interpretation Comments POC Creatinine (test code = POC 1.5 0.5-1.4 Creatinine) [facility] PhvcnadJYTSDDWJYW7725-96-71 12:16:00 Test Item Value Reference Range Interpretation Comments Coronavirus (COVID-19) Not Detected (03/05/22 ERI (test code = 7:16 AM) Coronavirus (COVID-19) ERI) [facility] [employer] [id number] 11:47:00 Test Item Value Reference Range Interpretation Comments ABO/Rh (test code = ABO/Rh) A POS [facility] [employer] [id number] 11:47:00 Test Item Value Reference Range Interpretation Comments Antibody Scrn (test Negative (03/05/22 6:47 code = Antibody Scrn) AM) [facility] [employer] [id number] 11:47:00 Test Item Value Reference Range Interpretation Comments Total Protein (test code = Total 6.7 6.4-8.4 Protein) [facility] [employer] [id number] 11:47:00 Test Item Value Reference Range Interpretation Comments Albumin Lvl (test code = Albumin Lvl) 3.3 3.5-5.0 [facility] [employer] [id number] 11:47:00 Test Item Value Reference Range Interpretation Comments ALT (test code = ALT) 19 See_Comment [Auto mated message] The system which ge nerated this result transmit diamante reference range : <=65. The reference range was not used to interpr et this result as amaury l/abnormal. [facility] [id number] 11:47:00 Test Item Value Reference Range Interpretation Comments AST (test code = AST) 18 See_Comment [Auto mated message] The system which ge nerated this result transmit diamante reference range : <=37. The reference range was not used to interpr et this result as amaury l/abnormal. [facility] [id number] 11:47:00 Test Item Value Reference Range Interpretation Comments Alk Phos (test code = Alk Phos) 66 39-136 [facility] [id number] 11:47:00 Test Item Value Reference Range Interpretation Comments Bili Total (test code = Bili Total) 0.6 0.2-1.3 [facility]2022-04-20 11:47:00 Test Item Value Reference Range Interpretation Comments B/C Ratio (test code = B/C Ratio) 12 1 6-25 [facility] [id number] 11:47:00 Test Item Value Reference Range Interpretation Comments Globulin (test code = Globulin) 3.4 2.7-4.2 [facility] [id number] 11:47:00 Test Item Value Reference Range Interpretation Comments A/G Ratio (test code = A/G Ratio) 1.0 1 0.7-1.6 [facility]57[facility]62 11:47:00 Test Item Value Reference Range Interpretation Comments PTT (test code = PTT) 30.8 s 22.9-35.8 [facility] [id number] 11:47:00 Test Item Value Reference Range Interpretation Comments Ca Ion WB (test code = Ca Ion WB) 1.05 1.05-1.25 [facility] HospitalPARATHYROID [id number] 11:47:00 Test Item Value Reference Range Interpretation Comments Ca Ion at pH 7.4 WB (test code = Ca Ion 1.03 1.05-1.25 at pH 7.4 WB) [facility] [id number] 17:17:57 Test Item Value Reference Range Interpretation Comments POC glucose (test code = 112 mg/dL 65-99 H Ope rator Name: [id number]) Radu Duffy ice ID: [id number] able: [facility] Notified athletic director Interpretation (test Abnormal code = 99675-6) [facility] 12 [id number] 22:21:01 Test Item Value Reference Range Interpretation Comments Ventricular rate (test code = 253) Atrial rate (test code = 255) NM interval (test code = 266) QRSD interval (test code = 260) QT interval (test code = 264) QTC interval (test code = 265) P axis 1 (test code = 267) QRS axis 1 (test code = 268) T wave axis (test code = 270) EKG impression (test Sinus rhythm with code = 273) occasional premature ventricular complexes-Left axis deviation-Right bundle branch block-Septal infarct , age undetermined-T wave abnormality, consider lateral ischemia-Cannot rule out Inferior infarct , age undetermined-Abnormal ECG- [facility] StationCv stress [id number] 20:13:39 Test Item Value Reference Range Interpretation Comments Resting HR (test code = 0445974998) Resting BP (test code = 4064984391) Peak MET Achieved (test code = 5369693031) Protocol Name (test Lexiscan code = 2762532995) Time in Exercise 00:01:00 Phase (test code = 3148896366) Max Systolic BP (test code = 8852847687) Max Diastolic BP (test code = 5630347997) Max Heart Rate (test code = 3136319056) Max Predicted Heart Rate (test code = 8939238619) Target HR Formula (220 - Age)*100% (test code = 5660913677) Test Indication (test chest pain code = 3312766254) Arrhy During Ex (test code = 6281609334) ECG Interp Before EX (test code = 6554683236) ECG Interp During Ex (test code = 5895383250) Ex Summary Comment (test code = 3961323587) Overall HR Response to Exercise (test code = 2996994952) Overall BP Response To Exercise (test code = 0826212766) Reason for Protocol Complete Termination (test code = 9536983897) Stress Test -Waveform interpreted in Impression (test code report associated with = 6119299071) image study. 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 (test code = 11082-7) Whether the patient has symptoms related to condition of interest (test code = 00144-0) Patient was hospitalized because of this condition (test code = 09307-4) Whether the patient was admitted to intensive care unit (ICU) for condition of interest (test code = 52283-7) Whether patient resides in a congregate care setting (test code = 97074-6) POCT GLUCOSE (AUTOMATED)2021-11-02 22:57:12 Test Item Value Reference Range Interpretation Comments POCT GLU (test code = 3957765991) 224 mg/dL 70-110 H Lab Interpretation (test code = Abnormal 39313-8) [facility] [id number] 22:37:57 Test Item Value Reference Range Interpretation Comments Lab Interpretation (test code = Abnormal 85484-6) [facility]2021-11-02 17:43:02 Test Item Value Reference Range Interpretation Comments POCT GLU (test code = 4482664186) 264 mg/dL 70-110 H Lab Interpretation (test code = Abnormal 09901-8) [facility]TR[facility] [id number] 15:07:47 Test Item Value Reference Interpretation Comments Range TROPONIN I (test 0.064 ng/mL See_Comment H [Automated code = 2456590867) message] The system which generated this result [...] biotin. Lab Interpretation Abnormal (test code = 45385-0) [facility]AL [id number] 15:04:26 Test Item Value Reference Range Interpretation Comments NT-proBNP (test code 800 pg/mL See_Comment H [Autom ated = 2761944250) message] The system which generated this result transmitted reference range : <=450. The reference range was not used to interpret this result as normal/abnormal . ALYSSA (test code = ALYSSA) Biotin has been reported to cause a negative bias, interpret results relative to patient's use of biotin. Lab Interpretation Abnormal (test code = 14481-9) [facility]2021-11-02 13:36:38 Test Item Value Reference Range Interpretation Comments POCT GLU (test code = 0324326155) 185 mg/dL 70-110 H Lab Interpretation (test code = Abnormal 73696-4) [facility]OLIC PANEL (NA, K, CL, CO2, GLUCOSE, BUN, CREATININE, CA)2021-11-02 10:26:43 Test Item Value Reference Range Interpretation Comments NA (test code = 136 mmol/L 135-145 1897624541) K (test code = 4.0 mmol/L 3.5-5.0 7827189589) CL (test code = 99 mmol/L 98-108 7912298772) CO2 TOTAL (test code = 27 mmol/L 23-31 5788372512) AGAP (test code = 2-16 8084988556) BUN (test code = 30 mg/dL 7-23 H 9194783873) GLUCOSE (test code = 165 mg/dL 70-110 H 3971896519) CREATININE (test code = 1.42 mg/dL 0.60-1.25 H 2021402437) CALCIUM (test code = 9.5 mg/dL 8.6-10.6 2248025519) eGFR (test code = mL/min/1.73m2 1252159807) ALYSSA (test code = ALYSSA) Association of [...] tests). Lab Interpretation Abnormal (test code = 53389-0) [facility] WITH [id number] 10:01:58 Test Item Value Reference Range Interpretation Comments WBC (test code = See_Comment [Automated 9090-2) message] The sy stem which generated this result transmitted reference range : 4.20 - 10.70 10*3/?L. The reference range was not used to interpret this result as normal/abnormal . RBC (test code = See_Comment L [Automated 959-8) message] The sy stem which generated this [...] RDW-SD (test code = 39.8 fL 38.5-51.6 30832-9) RDW-CV (test code = 11.5 % 12.1-15.4 L 788-0) PLT (test code = See_Comment [Automated 777-3) message] The sy stem which generated this result transmitted reference range : 150 - 328 10*3/ ?L. The reference r corey was not used to interpret this result as normal/abnormal . MPV (test code = 10.5 fL 9.8-13.0 54988-5) NRBC/100 WBC (test See_Comment [Automat ed code = 3974681063) message] The system which generated this result transmitted reference range : 0.0 - 10.0 /100 WBCs. The refer ence range was not u sed to interpret th is result as normal/abnormal . NRBC x10^3 (test code <0.01 See_Comment [Auto mated = 4407287458) message] The s ystem which generated this result transmitted reference range : 10*3/?L. The reference range was not used to interpret this result as normal/abnormal . GRAN MAT (NEUT) % 59.3 % (test code = 770-8) IMM GRAN % (test code 0.30 % = 2862676480) LYMPH % (test code = 25.0 % 736-9) MONO % (test code = 10.7 % 5905-5) EOS % (test code = 4.1 % 713-8) BASO % (test code = 0.6 % 706-2) GRAN MAT x10^3(ANC) 4.19 10*3/uL 1.99-6.95 (test code = 5966183521) IMM GRAN x10^3 (test <0.03 0.00-0.06 code = 8577650569) LYMPH x10^3 (test code 1.77 10*3/uL 1.09-3.23 = 731-0) MONO x10^3 (test code 0.76 10*3/uL 0.36-1.02 = 742-7) EOS x10^3 (test code = 0.29 10*3/uL 0.06-0.53 711-2) BASO x10^3 (test code 0.04 10*3/uL 0.01-0.09 = 704-7) Lab Interpretation Abnormal (test code = 85328-2) [facility] GLUCOSE (AUTOMATED)2021-11-02 01:29:56 Test Item Value Reference Range Interpretation Comments POCT GLU (test code = 5934408595) 167 mg/dL 70-110 H Lab Interpretation (test code = Abnormal 85432-5) [facility] GLUCOSE (AUTOMATED)2021-11-01 17:40:19 Test Item Value Reference Range Interpretation Comments POCT GLU (test code = 7044344347) 193 mg/dL 70-110 H Lab Interpretation (test code = Abnormal 40601-7) [facility] GLUCOSE (AUTOMATED)2021-11-01 13:44:28 Test Item Value Reference Range Interpretation Comments POCT GLU (test code = 7717721575) 200 mg/dL 70-110 H Lab Interpretation (test code = Abnormal 29317-8) [facility] GLUCOSE (AUTOMATED)2021-11-01 01:38:43 Test Item Value Reference Range Interpretation Comments POCT GLU (test code = 7467502523) 177 mg/dL 70-110 H Lab Interpretation (test code = Abnormal 11044-2) [facility] GLUCOSE (AUTOMATED)2021-10-31 22:39:43 Test Item Value Reference Range Interpretation Comments POCT GLU (test code = 1762541077) 174 mg/dL 70-110 H Lab Interpretation (test code = Abnormal 83644-6) [facility] GLUCOSE (AUTOMATED)2021-10-31 17:40:22 Test Item Value Reference Range Interpretation Comments POCT GLU (test code = 0943914748) 224 mg/dL 70-110 H Lab Interpretation (test code = Abnormal 58025-8) [facility]TR[facility] [id number] 17:14:58 Test Item Value Reference Interpretation Comments Range TROPONIN I (test 0.080 ng/mL See_Comment H [Automated code = 4601705080) message] The system which generated this result [...] biotin. Lab Interpretation Abnormal (test code = 34223-8) [facility]AL [id number] 15:14:03 Test Item Value Reference Range Interpretation Comments NT-proBNP (test code 474 pg/mL See_Comment H [Autom ated = 3328830598) message] The system which generated this result transmitted reference range : <=450. The reference range was not used to interpret this result as normal/abnormal . ALYSSA (test code = ALYSSA) Biotin has been reported to cause a negative bias, interpret results relative to patient's use of biotin. Lab Interpretation Abnormal (test code = 82428-8) [facility] HospitalLIPID PANEL (57318)(TOTAL CHOLESTEROL, TRIGLYCERIDES, HDL)2021-10-31 15:05:19 Test Item Value Reference Range Interpretation Comments CHOL (test code = 101 mg/dL 120-200 L 5045657166) HDL (test code = 36 mg/dL >40 L 5399999116) HDLC RATIO (test code = See_Comment [Au tomated message] 8654699731) The system [employer] generated this result transmit diamante reference range : <=5.0. The refe rence range was not u sed to interpret th is result as normal/abnormal . TRIG (test code = 143 mg/dL 30-170 7186636310) LDL CHOL (test code = 36 mg/dL See_Comment [Auto mated message] 35758-9) The system whic h generated this result transmit diamante reference range : <=160. The refe rence range was not u sed to interpret th is result as normal/abnormal . VLDL (test code = 29 mg/dL 5-60 4169975025) Lab Interpretation (test Abnormal code = 74437-6) [facility]2021-10-31 13:44:00 Test Item Value Reference Range Interpretation Comments POCT GLU (test code = 3994137921) 150 mg/dL 70-110 H Lab Interpretation (test code = Abnormal 66591-0) [facility] with Rdgaxdvkbxqg5820-09-47 11:13:14 Test Item Value Reference Range Interpretation [...] RDW-SD (test code = 39.9 fL 38.5-51.6 93562-0) RDW-CV (test code = 11.8 % 12.1-15.4 L 788-0) PLT (test code = See_Comment [Automated 777-3) message] The sy stem which generated this result transmitted reference range : 150 - 328 10*3/ ?L. The reference r corey was not used to interpret this result as normal/abnormal . MPV (test code = 11.0 fL 9.8-13.0 64122-9) NRBC/100 WBC (test See_Comment [Automat ed code = 8756484035) message] The system which generated this result transmitted reference range : 0.0 - 10.0 /100 WBCs. The refer ence range was not u sed to interpret th is result as normal/abnormal . NRBC x10^3 (test code <0.01 See_Comment [Auto mated = 8077953183) message] The s ystem which generated this result transmitted reference range : 10*3/?L. The reference range was not used to interpret this result as normal/abnormal . GRAN MAT (NEUT) % 64.3 % (test code = 770-8) IMM GRAN % (test code 0.30 % = 6610048220) LYMPH % (test code = 21.7 % 736-9) MONO % (test code = 10.0 % 5905-5) EOS % (test code = 3.1 % 713-8) BASO % (test code = 0.6 % 706-2) GRAN MAT x10^3(ANC) 4.35 10*3/uL 1.99-6.95 (test code = 0041619415) IMM GRAN x10^3 (test <0.03 0.00-0.06 code = 6706027036) LYMPH x10^3 (test code 1.47 10*3/uL 1.09-3.23 = 731-0) MONO x10^3 (test code 0.68 10*3/uL 0.36-1.02 = 742-7) EOS x10^3 (test code = 0.21 10*3/uL 0.06-0.53 711-2) BASO x10^3 (test code 0.04 10*3/uL 0.01-0.09 = 704-7) Lab Interpretation Abnormal (test code = 11674-2) [facility]WENDY [id number] 11:09:53 Test Item Value Reference Interpretation Comments Range TROPONIN I (test 0.101 ng/mL See_Comment H [Automated code = 5380147454) message] The system which generated this result [...] biotin. Lab Interpretation Abnormal (test code = 87396-2) [facility] (NA, K, CL, CO2, GLUCOSE, BUN, CREATININE, CA)2021-10-31 10:59:31 Test Item Value Reference Range Interpretation Comments NA (test code = 139 mmol/L 135-145 0130394354) K (test code = 4.1 mmol/L 3.5-5.0 7529129036) CL (test code = 103 mmol/L 98-108 9047182963) CO2 TOTAL (test code = 28 mmol/L 23-31 7831337205) AGAP (test code = 2-16 1861155521) BUN (test code = 43 mg/dL 7-23 H 5339994655) GLUCOSE (test code = 165 mg/dL 70-110 H 8483624621) CREATININE (test code = 1.68 mg/dL 0.60-1.25 H 1961174609) CALCIUM (test code = 9.6 mg/dL 8.6-10.6 3217473774) eGFR (test code = mL/min/1.73m2 3146096603) ALYSSA (test code = ALYSSA) Association of [...] tests). Lab Interpretation Abnormal (test code = 43636-9) [facility] HospitalGlycosylated Hemoglobin (A1C)2021-10-31 09:13:40 Test Item Value Reference Range Interpretation Comments HGB A1C (test code = 6.8 % 4.0-5.7 H 4548-4) ALYSSA (test code = ALYSSA) Reference RangesNormal: <5.7%Prediabetes: 5.7 - 6.4%Diabetes: > 6.5% Lab Interpretation (test Abnormal code = 83334-1) [facility]TROP[facility]IN [id number] 06:48:18 Test Item Value Reference Interpretation Comments Range TROPONIN I (test 0.082 ng/mL See_Comment H [Automated code = 4901646664) message] The system which generated this result [...] biotin. Lab Interpretation Abnormal (test code = 49168-8) [facility]TR[facility] [id number] 02:09:48 Test Item Value Reference Interpretation Comments Range TROPONIN I (test 0.067 ng/mL See_Comment H [Automated code = 9900120696) message] The system which generated this result [...] biotin. Lab Interpretation Abnormal (test code = 30233-2) [facility]N-[facility]MINAL [id number] 02:06:31 Test Item Value Reference Range Interpretation Comments NT-proBNP (test code 318 pg/mL See_Comment [Autom ated = 0599925722) message] The system which generated this result transmitted reference range : <=450. The reference range was not used to interpret this result as normal/abnormal . ALYSSA (test code = ALYSSA) Biotin has been reported to cause a negative bias, interpret results relative to patient's use of biotin. Lab Interpretation Normal (test code = 93111-5) [facility]. METABOLIC PANEL (67344)2021-10-31 01:58:28 Test Item Value Reference Range Interpretation Comments NA (test code = 137 mmol/L 135-145 2907454649) K (test code = 4.1 mmol/L 3.5-5.0 5755397690) CL (test code = 101 mmol/L 98-108 3302369243) CO2 TOTAL (test code = 26 mmol/L 23-31 9297601501) AGAP (test code = 2-16 7837998682) BUN (test code = 46 mg/dL 7-23 H 8744914310) GLUCOSE (test code = 213 mg/dL 70-110 H 3063853044) CREATININE (test code = 1.96 mg/dL 0.60-1.25 H 8437242260) TOTAL BILI (test code = 0.9 mg/dL 0.1-1.8 4961725415) CALCIUM (test code = 9.7 mg/dL 8.6-10.6 5237891400) T PROTEIN (test code = 7.0 g/dL 6.3-8.2 3764324862) ALBUMIN (test code = 4.3 g/dL 3.5-5.0 6635422634) ALK PHOS (test code = 58 U/L 34-122 3738673846) ALTv (test code = 20 U/L 5-50 1742-6) AST(SGOT) (test code = 27 U/L 13-40 9762417101) eGFR (test code = mL/min/1.73m2 7790542039) ALYSSA (test code = ALYSSA) Association of [...] tests). Lab Interpretation Abnormal (test code = 00554-5) [facility] HospitalLIPASE, [id number] 01:57:48 Test Item Value Reference Range Interpretation Comments LIPASE (test code = 1790177781) 330 U/L 0-220 H Lab Interpretation (test code = Abnormal 25082-6) [facility] HospitalaPTT2021-12-16 01:55:04 Test Item Value Reference Range [...] seconds. Lab Interpretation Normal (test code = 97975-6) [facility] HospitalPROTHROMBIN TIME / [id number] 01:53:08 Test Item Value Reference Range Interpretation [...] tions. Lab Interpretation (test Normal code = 42939-6) [facility] HospitalCBC WITH [id number] 01:45:44 Test Item Value Reference Range Interpretation [...] RDW-SD (test code = 39.1 fL 38.5-51.6 72144-2) RDW-CV (test code = 11.6 % 12.1-15.4 L 788-0) PLT (test code = See_Comment [Automated 777-3) message] The sy stem which generated this result transmitted reference range : 150 - 328 10*3/ ?L. The reference r corey was not used to interpret this result as normal/abnormal . MPV (test code = 10.4 fL 9.8-13.0 91194-8) NRBC/100 WBC (test See_Comment [Automat ed code = 7167447216) message] The system which generated this result transmitted reference range : 0.0 - 10.0 /100 WBCs. The refer ence range was not u sed to interpret th is result as normal/abnormal . NRBC x10^3 (test code <0.01 See_Comment [Auto mated = 4583823989) message] The s ystem which generated this result transmitted reference range : 10*3/?L. The reference range was not used to interpret this result as normal/abnormal . GRAN MAT (NEUT) % 62.1 % (test code = 770-8) IMM GRAN % (test code 0.30 % = 2172827780) LYMPH % (test code = 23.4 % 736-9) MONO % (test code = 10.8 % 5905-5) EOS % (test code = 2.9 % 713-8) BASO % (test code = 0.5 % 706-2) GRAN MAT x10^3(ANC) 4.14 10*3/uL 1.99-6.95 (test code = 9016432861) IMM GRAN x10^3 (test <0.03 0.00-0.06 code = 2707819277) LYMPH x10^3 (test code 1.56 10*3/uL 1.09-3.23 = 731-0) MONO x10^3 (test code 0.72 10*3/uL 0.36-1.02 = 742-7) EOS x10^3 (test code = 0.19 10*3/uL 0.06-0.53 711-2) BASO x10^3 (test code 0.03 10*3/uL 0.01-0.09 = 704-7) Lab Interpretation Abnormal (test code = 70587-7) [facility]URINALYSIS2021-06-10 21:15:48 Test Item Value Reference Range Interpretation Comments APPEARANCE (test code = Clear Clear 6835008536) COLOR (test code = Yellow Yellow 1732652882) PH (test code = 4.8-8.0 4575239168) SP GRAVITY (test code = 1.003-1.030 9784806168) GLU U QUAL (test code = 50 mg/dL Normal A 4568236718) BLOOD (test code = Negative Negative INTERFERE NCE FROM 8328386738) ASCORBIC ACID M AY CAUSE FALSE NEG ATIVE RESULT KETONES (test code = Negative Negative 1897800211) PROTEIN (test code = Negative Negative 2887-8) UROBILIN (test code = Normal Normal 7000939572) BILIRUBIN (test code = Negative Negative 5820731120) NITRITE (test code = Negative Negative 2739382203) LEUK JESS (test code = Negative Negative 5400343609) RBC/HPF (test code = See_Comment [Autom ated message] 8133140033) The system [employer] generated this result transmitted ref erence range: 0 - 3 HP F. The reference range was not used to int erpret this result as normal/abnormal . WBC/HPF (test code = See_Comment [Autom ated message] 9959401097) The system [employer] generated this result transmitted ref erence range: 0 - 5 HP F. The reference range was not used to int erpret this result as normal/abnormal . BACTERIA (test code = Negative Negative 4980064280) SQ EPITH (test code = <1 See_Comment [Auto mated message] 6430067344) The system [employer] generated this result transmitted ref erence range: <=2 HPF. The reference range was not used to int erpret this result as normal/abnormal . HYAL CAST (test code = See_Comment [Aut omated message] 8395722834) The system [employer] generated this result transmitted ref erence range: <=2 LPF. The reference range was not used to int erpret this result as normal/abnormal . Lab Interpretation (test Abnormal code = 35743-6) [facility] HospitalXR LUMBAR SPINE 2 [id number] 20:30:53 Impression: Postoperative changes. Degenerative changes. No [...] acute fracture or dislocation identified. Atherosclerotic calcifications. [facility], Radiant Results Inft User - 04/25/2021 3:31 PM CDT Ordering Physician: NALLELY BHAT.Procedure: [...] of 2 mm L2 on L3.No acute fractureor dislocation identified.Atherosclerotic calcifications.IMPRESSIONImpression:Postoperative changes.Degenerative changes.No acute bony abnormality identified.End of Report.RL: [id number] signedby Benton Morales MD at 04/25/2021 3:30 PMUnChildren[facility] Medical [facility] PlanoXR HIPS 2 VW [id number] 20:24:52Impression: Postoperative changes. Degenerative changes. No acute [...] the pelvis. Tiny ossific density adjacent to theacetabulum likely os acetabuli. Moderate pubic symphyseal degenerative arthropathy. No fracture, dislocation, or avascular necrosis identified. Atherosclerotic calcifications bilaterally. [facility], RadiantResults Inft User - 04/25/2021 3:26 PM CDT [...] clinicalconcern MRI is available.End of Report.RL: [id number] UnChildren[facility] PlanoBasic Metabolic Panel (NA, K, CL, CO2, GLUCOSE, BUN, CREATININE, CA)2020-05-24 14:15:00 Test Item Value Reference Range Interpretation Comments NA (test code = 139 mmol/L 135-145 9998909146) K (test code = 4.1 mmol/L 3.5-5 2917421790) CL (test code = 104 mmol/L 98-108 8057166475) CO2 TOTAL (test code = 26 mmol/L 23-31 6774077806) AGAP (test code = 2-16 5798107882) BUN (test code = 22 mg/dL 7-23 5277874371) GLUCOSE (test code = 203 mg/dL 70-110 H 9934028876) CREATININE (test code = 1.40 mg/dL 0.6-1.25 H 4167539669) CALCIUM (test code = 9.1 mg/dL 8.6-10.6 0262643861) eGFR Calculation mL/min/1.73m2 (Non-) (test code = 0266575231) eGFR Calculation mL/min/1.73m2 () (test code = 9447502993) ALYSSA (test code = ALYSSA) Association of [...] tests). Lab Interpretation Abnormal (test code = 17168-1) [facility] HospitalHepatic Function Panel (ALB, T.PRO, BILI T, BU/BC, ALT, AST, ALK PHOS)2020-05-24 13:54:00 Test Item Value Reference Range Interpretation Comments TOTAL BILI (test code = 4444767547) 0.9 mg/dL 0.1-1.1 BILI UNCON (test code = 2933733429) 1.0 mg/dL 0.1-1.1 BILI CONJ (test code = 0501766059) 0.0 mg/dL 0-0.3 T PROTEIN (test code = 4594548224) 7.0 g/dL 6.3-8.2 ALBUMIN (test code = 4597567111) 4.2 g/dL 3.5-5 ALK PHOS (test code = 4580109899) 49 U/L 34-122 ALTv (test code = 1742-6) 17 U/L 5-50 AST(SGOT) (test code = 8170172339) 25 U/L 13-40 Lab Interpretation (test code = Normal 58674-0) [facility]aPTT2020-07-09 13:32:00 Test Item Value Reference Range [...] seconds. Lab Interpretation Normal (test code = 24279-0) [facility] HospitalProthrombin Time (PT) / [id number] 13:30:00 Test Item Value Reference Range Interpretation [...] tions. Lab Interpretation (test Normal code = 28475-8) [facility] WITH [id number] 13:27:00 Test Item Value Reference Range Interpretation [...] RDW-SD (test code = 42.6 fL 38.5-51.6 30592-3) RDW-CV (test code = 12.3 % 12.1-15.4 788-0) PLT (test code = See_Comment [Automated 777-3) message] The sy stem which generated this result transmitted reference range : 150 - 328 10*3/ ?L. The reference r corey was not used to interpret this result as normal/abnormal . MPV (test code = 9.9 fL 9.8-13 93087-3) NRBC/100 WBC (test See_Comment [Automat ed code = 7721303762) message] The system which generated this result transmitted reference range : 0.0 - 10.0 /100 WBCs. The refer ence range was not u sed to interpret th is result as normal/abnormal . NRBC x10^3 (test code <0.01 See_Comment [Auto mated = 4463260346) message] The s [email or web address] which generated this result transmitted reference range : 10*3/?L. The reference range was not used to interpret this result as normal/abnormal . GRAN MAT (NEUT) % 55.1 % (test code = 770-8) IMM GRAN % (test code 0.20 % = 4977528049) LYMPH % (test code = 28.8 % 736-9) MONO % (test code = 11.3 % 5905-5) EOS % (test code = 3.5 % 713-8) BASO % (test code = 1.1 % 706-2) GRAN MAT x10^3(ANC) 3.11 10*3/uL 1.99-6.95 (test code = 9722357555) IMM GRAN x10^3 (test <0.03 0-0.06 code = 7290958862) LYMPH x10^3 (test code 1.63 10*3/uL 1.09-3.23 = 731-0) MONO x10^3 (test code 0.64 10*3/uL 0.36-1.02 = 742-7) EOS x10^3 (test code = 0.20 10*3/uL 0.06-0.53 711-2) BASO x10^3 (test code 0.06 10*3/uL 0.01-0.09 = 704-7) Lab Interpretation Abnormal (test code = 55333-2) [facility] [id number] 13:25:58HISTORY: ?Pain. FINDINGS: AP, lateral, oblique views of left ankle obtained with portabletechnique showed no acute fracture or dislocation. No talar dome lesion.Minimal degenerative changes are seen inthe medial tibiotalar joint. Noheel spur. No significant ankle joint effusion or aggressive bone lesionsseen. CONCLUSIONS: No acute fracture or dislocation in left ankle. [facility], Radiant Results Inft User - 05/24/2020 8:27 AM CDTHISTORY: Pain.FINDINGS: AP, lateral, oblique views of left ankle obtained with portabletechnique showed no acute fracture or dislocation. No talar dome lesion.Minimal degenerative changes are seen in the medial tibiotalar joint. Noheel spur. No significant ankle joint effusionor aggressive bone lesionsseen.CONCLUSIONS: No acute fracture or dislocation in left ankle.[facility] GLUCOSE (AUTOMATED)2020-03-23 22:34:00 Test Item Value Reference Range Interpretation Comments POCT GLU (test code = 6594840458) 173 mg/dL 70-110 H Lab Interpretation (test code = Abnormal 13657-6) [facility] GLUCOSE (AUTOMATED)2020-03-23 22:34:00 Test Item Value Reference Range Interpretation Comments POCT GLU (test code = 1501369677) 173 mg/dL 70-110 H Lab Interpretation (test code = Abnormal 43408-4) [facility] GLUCOSE (AUTOMATED)2020-03-23 18:12:00 Test Item Value Reference Range Interpretation Comments POCT GLU (test code = 165 mg/dL 70-110 H Notifi ed Provider [id number]) Lab Interpretation (test Abnormal code = 92709-8) [facility] GLUCOSE (AUTOMATED)2020-03-23 18:12:00 Test Item Value Reference Range Interpretation Comments POCT GLU (test code = 165 mg/dL 70-110 H Notifi ed Provider [id number]) Lab Interpretation (test Abnormal code = 16707-8) [facility] GLUCOSE (AUTOMATED)2020-03-23 15:04:00 Test Item Value Reference Range Interpretation Comments POCT GLU (test code = 114 mg/dL 70-110 H Notifi ed Provider [id number]) Lab Interpretation (test Abnormal code = 77167-2) [facility] GLUCOSE (AUTOMATED)2020-03-23 15:04:00 Test Item Value Reference Range Interpretation Comments POCT GLU (test code = 114 mg/dL 70-110 H Notifi ed Provider [id number]) Lab Interpretation (test Abnormal code = 78910-8) [facility]ERR[facility]IN [id number] 13:23:00 Test Item Value Reference Range Interpretation Comments FERRITIN (test code = 139.0 ng/mL 18-464 6629656244) ALYSSA (test code = ALYSSA) Biotin has been reported to cause a negative bias, interpret results relative to patient's use of biotin. Lab Interpretation (test Normal code = 98959-2) [facility] [id number] 13:23:00 Test Item Value Reference Range Interpretation Comments FERRITIN (test code = 139.0 ng/mL 18-464 3561522133) ALYSSA (test code = ALYSSA) Biotin has been reported to cause a negative bias, interpret results relative to patient's use of biotin. Lab Interpretation (test Normal code = 65157-2) [facility] [id number] 12:53:00 Test Item Value Reference Range Interpretation Comments IRON (test code = 5603710231) 87 ug/dL 50-160 TIBC (test code = 0794188732) 385 ug/dL 250-410 % FE SAT (test code = 6786179597) 23 % 20-50 Lab Interpretation (test code = Normal 25245-5) [facility] [id number] 12:53:00 Test Item Value Reference Range Interpretation Comments IRON (test code = 1174924064) 87 ug/dL 50-160 TIBC (test code = 6759902510) 385 ug/dL 250-410 % FE SAT (test code = 9381705386) 23 % 20-50 Lab Interpretation (test code = Normal 98066-5) [facility] 12:07:00 Test Item Value Reference Range Interpretation Comments APTT Patient (test code See_Comment HH [Au tomated message] = 3173-2) The system [employer] generated this result transmitted ref erence range: 26 - 36 Seconds. The reference range was not used to int erpret this result as normal/abnormal . Lab Interpretation (test Abnormal code = 83657-6) [facility] 12:07:00 Test Item Value Reference Range Interpretation Comments APTT Patient (test code See_Comment HH [Au tomated message] = 3173-2) The system [employer] generated this result transmitted ref erence range: 26 - 36 Seconds. The reference range was not used to int erpret this result as normal/abnormal . Lab Interpretation (test Abnormal code = 91073-9) [facility] [id number] 11:57:00 Test Item Value Reference Range Interpretation Comments TROPONIN I (test 0.046 ng/mL See_Comment H [Automated code = 6574010709) message] The system which generated this result [...] ? Lab Interpretation Abnormal (test code = 96489-9) [facility] [id number] 11:57:00 Test Item Value Reference Range Interpretation Comments TROPONIN I (test 0.046 ng/mL See_Comment H [Automated code = 7027738133) message] The system which generated this result [...] ? Lab Interpretation Abnormal (test code = 25038-3) [facility] METABOLIC PANEL (NA, K, CL, CO2, GLUCOSE, BUN, CREATININE, CA)2020-03-23 11:52:00 Test Item Value Reference Range Interpretation Comments NA (test code = 137 mmol/L 135-145 2131053486) K (test code = 4.1 mmol/L 3.5-5 4687600717) CL (test code = 102 mmol/L 98-108 8309558549) CO2 TOTAL (test code = 26 mmol/L 23-31 3022290548) AGAP (test code = 2-16 9743026285) BUN (test code = 18 mg/dL 7-23 7915473303) GLUCOSE (test code = 119 mg/dL 70-110 H 6998656871) CREATININE (test code = 1.14 mg/dL 0.6-1.25 0928584069) CALCIUM (test code = 9.1 mg/dL 8.6-10.6 8138105944) eGFR Calculation mL/min/1.73m2 (Non-) (test code = 8615409022) eGFR Calculation mL/min/1.73m2 () (test code = 4183252348) ALYSSA (test code = ALYSSA) Association of [...] tests). Lab Interpretation Abnormal (test code = 60696-9) [facility]2020-[facility]-08 11:52:00 Test Item Value Reference Range Interpretation Comments MAGNESIUM (test code = 8229371654) 2.2 mg/dL 1.7-2.4 Lab Interpretation (test code = Normal 80437-1) [facility] (NA, K, CL, CO2, GLUCOSE, BUN, CREATININE, CA)2020-03-23 11:52:00 Test Item Value Reference Range Interpretation Comments NA (test code = 137 mmol/L 135-145 7090466122) K (test code = 4.1 mmol/L 3.5-5 1855753495) CL (test code = 102 mmol/L 98-108 3790904433) CO2 TOTAL (test code = 26 mmol/L 23-31 9855462876) AGAP (test code = 2-16 7554296874) BUN (test code = 18 mg/dL 7-23 0608281233) GLUCOSE (test code = 119 mg/dL 70-110 H 6378344488) CREATININE (test code = 1.14 mg/dL 0.6-1.25 6734787934) CALCIUM (test code = 9.1 mg/dL 8.6-10.6 2353310047) eGFR Calculation mL/min/1.73m2 (Non-) (test code = 4624028689) eGFR Calculation mL/min/1.73m2 () (test code = 0027382785) ALYSSA (test code = ALYSSA) Association of [...] tests). Lab Interpretation Abnormal (test code = 23184-7) [facility]2020-05-08 11:52:00 Test Item Value Reference Range Interpretation Comments MAGNESIUM (test code = 9900686569) 2.2 mg/dL 1.7-2.4 Lab Interpretation (test code = Normal 04807-7) [facility]Prothrom[facility] (PT) / [id number] 11:36:00 Test Item Value Reference Range Interpretation Comments PROTIME PATIENT (test See_Comment [Auto mated message] code = 5964-2) The system [employer] generated this result transmitted ref erence range: 10.1 - 1 2.6 Seconds. The re ference range was not u sed to interpret this result as normal/abnor mal. INR (test code = 6301-6) Nor mal INR <1.1; Warfarin Therap eutic range 2.0 to 3. 0 or 2.5 to 3.5, dep ending upon the indica tions. Lab Interpretation (test Normal code = 68952-5) [facility] (PT[facility] / [id number] 11:36:00 Test Item Value Reference Range Interpretation [...] tions. Lab Interpretation (test Normal code = 68698-1) [facility]TR[facility] [id number] 06:38:00 Test Item Value Reference Range Interpretation Comments TROPONIN I (test 0.045 ng/mL See_Comment H [Automated code = 8027643480) message] The system which generated this result [...] ? Lab Interpretation Abnormal (test code = 91187-5) [facility] [id number] 06:38:00 Test Item Value Reference Range Interpretation Comments TROPONIN I (test 0.045 ng/mL See_Comment H [Automated code = 3632631770) message] The system which generated this result [...] ? Lab Interpretation Abnormal (test code = 28931-6) [facility] (NA, K, CL, CO2, GLUCOSE, BUN, CREATININE, CA)2020-03-23 06:29:00 Test Item Value Reference Range Interpretation Comments NA (test code = 137 mmol/L 135-145 1410346349) K (test code = 3.6 mmol/L 3.5-5 3825849223) CL (test code = 101 mmol/L 98-108 5948492944) CO2 TOTAL (test code = 27 mmol/L 23-31 4431151207) AGAP (test code = 2-16 7874240163) BUN (test code = 19 mg/dL 7-23 8334083203) GLUCOSE (test code = 153 mg/dL 70-110 H 4860238549) CREATININE (test code = 1.22 mg/dL 0.6-1.25 4956527073) CALCIUM (test code = 8.9 mg/dL 8.6-10.6 4647456405) eGFR Calculation mL/min/1.73m2 (Non-) (test code = 0916989482) eGFR Calculation mL/min/1.73m2 () (test code = 1158282799) ALYSSA (test code = ALYSSA) Association of [...] tests). Lab Interpretation Abnormal (test code = 76129-0) [facility] 06[facility]29[facility]00 Test Item Value Reference Range Interpretation Comments MAGNESIUM (test code = 5976967389) 1.7 mg/dL 1.7-2.4 Lab Interpretation (test code = Normal 10151-5) [facility] HospitalLIPID PANEL (72580)(TOTAL CHOLESTEROL, TRIGLYCERIDES, HDL)2020-03-23 06:29:00 Test Item Value Reference Range Interpretation Comments CHOL (test code = 106 mg/dL 120-200 L 3185536372) HDL (test code = 46 mg/dL >40 4213002629) HDLC RATIO (test code = See_Comment [Au tomated message] 6021984725) The system Alt[employer] generated this result transmit diamante reference range : <=5.0. The refe rence range was not u sed to interpret th is result as normal/abnormal . TRIG (test code = 74 mg/dL 30-170 5596831786) LDL CHOL (test code = 45 mg/dL See_Comment [Auto mated message] 27057-7) The system [employer] generated this result transmit diamante reference range : <=160. The refe rence range was not u sed to interpret th is result as normal/abnormal . VLDL (test code = 15 mg/dL 5-60 3218301995) Lab Interpretation (test Abnormal code = 69352-9) [facility] (NA, K, CL, CO2, GLUCOSE, BUN, CREATININE, CA)2020-03-23 06:29:00 Test Item Value Reference Range Interpretation Comments NA (test code = 137 mmol/L 135-145 2262249175) K (test code = 3.6 mmol/L 3.5-5 7280558439) CL (test code = 101 mmol/L 98-108 8741062815) CO2 TOTAL (test code = 27 mmol/L 23-31 5650675974) AGAP (test code = 2-16 8745453294) BUN (test code = 19 mg/dL 7-23 1411683951) GLUCOSE (test code = 153 mg/dL 70-110 H 9195442063) CREATININE (test code = 1.22 mg/dL 0.6-1.25 0066319060) CALCIUM (test code = 8.9 mg/dL 8.6-10.6 9141911641) eGFR Calculation mL/min/1.73m2 (Non-) (test code = 8954009397) eGFR Calculation mL/min/1.73m2 () (test code = 4347440142) ALYSSA (test code = ALYSSA) Association of [...] tests). Lab Interpretation Abnormal (test code = 92808-6) [facility]2020-05-08 06:29:00 Test Item Value Reference Range Interpretation Comments MAGNESIUM (test code = 0702684518) 1.7 mg/dL 1.7-2.4 Lab Interpretation (test code = Normal 66110-6) [facility]LIPID PANEL (79246)(TOTAL CHOLESTEROL, TRIGLYCERIDES, HDL)2020-03-23 06:29:00 Test Item Value Reference Range Interpretation Comments CHOL (test code = 106 mg/dL 120-200 L 5351303274) HDL (test code = 46 mg/dL >40 2151203592) HDLC RATIO (test code = See_Comment [Au tomated message] 4394475842) The system [employer] generated this result transmit diamante reference range : <=5.0. The refe rence range was not u sed to interpret th is result as normal/abnormal . TRIG (test code = 74 mg/dL 30-170 0457301409) LDL CHOL (test code = 45 mg/dL See_Comment [Auto mated message] 46337-7) The system [employer] generated this result transmit diamante reference range : <=160. The refe rence range was not u sed to interpret th is result as normal/abnormal . VLDL (test code = 15 mg/dL 5-60 3612224765) Lab Interpretation (test Abnormal code = 23945-6) [facility] 03:18:00 Test Item Value Reference Range Interpretation Comments APTT Patient (test code = See_Comment [ Automated message] 3173-2) The system [employer] generated this result transmitted ref erence range: 26 - 36 Seconds. The re ference range was not u sed to interpret this result as normal/abnor mal. Lab Interpretation (test Normal code = 80752-3) [facility] 03:18:00 Test Item Value Reference Range Interpretation Comments APTT Patient (test code = See_Comment [ Automated message] 3173-2) The system [employer] generated this result transmitted ref erence range: 26 - 36 Seconds. The re ference range was not u sed to interpret this result as normal/abnor mal. Lab Interpretation (test Normal code = 97903-6) [facility] HospitalPROTHROMBIN TIME / [id number] 03:07:00 Test Item Value Reference Range Interpretation Comments PROTIME PATIENT (test See_Comment [Auto mated message] code = 5964-2) The system [employer] generated this result transmitted ref erence range: 10.1 - 1 2.6 Seconds. The re ference range was not u sed to interpret this result as normal/abnor mal. INR (test code = 6301-6) Nor mal INR <1.1; Warfarin Therap eutic range 2.0 to 3. 0 or 2.5 to 3.5, dep ending upon the indica tions. Lab Interpretation (test Normal code = 58610-3) [facility] HospitalPROTHROMBIN TIME / [id number] 03:07:00 Test Item Value Reference Range Interpretation Comments PROTIME PATIENT (test See_Comment [Auto mated message] code = 5964-2) The system [employer] generated this result transmitted ref erence range: 10.1 - 1 2.6 Seconds. The re ference range was not u sed to interpret this result as normal/abnor mal. INR (test code = 6301-6) Nor mal INR <1.1; Warfarin Therap eutic range 2.0 to 3. 0 or 2.5 to 3.5, dep ending upon the indica tions. Lab Interpretation (test Normal code = 19270-9) [facility] 2 [id number] 02:23:32 No acute cardiopulmonary process. Preliminary Report [...] abnormalities are noted. [facility], Radiant Results Inft User- 03/22/2020 9:24 PM CDTEXAM: XR CHEST 2 VWHISTORY: chest pain COMPARISON: Chest radiograph 03/21/2020F INDINGS:Neurostimulator leads are extending to the lower thoracic spine. The lungs are clear. No pleural effusion or pneumothorax is identified.The heart is mildly enlarged. Coarse calcification outlines the aorticarch. Severe coronary arterial calcifications or coronary stent is seen. Noacute bony abnormalities are noted.IMPRESSIONNo acute cardiopulmonary process.Preliminary Report Dictated by Resident: Dirk Braun MD., have reviewed this study and agree with the abovereport.[facility]W 2020-03-23 02:23:32 No acute cardiopulmonary process. Preliminary Report [...] abnormalities are noted. [facility], Radiant Results Inft User- 03/22/2020 9:24 PM CDTEXAM: XR CHEST 2 VWHISTORY: chest pain COMPARISON: Chest radiograph 03/21/2020FINDINGS:Neurostimulator leads are extending to the lower thoracic spine. The lungs are clear. No pleural effusion or pneumothorax is identified.The heart is mildly enlarged. Coarse calcification outlines the aorticarch. Severe coronary arterial calcifications or coronary stent is seen. Noacute bony abnormalities are noted.IMPRESSIONNo acute cardiopulmonary process.Preliminary Report Dictated by Resident: Stewart Biggs, Dirk Foss MD., have reviewed this study and agree with the abovereport. [facility]CORON[facility]IRUS COVID-19 [id number] 01:23:00 Test Item Value Reference Range Interpretation Comments SARS-CoV-2 (test code = Not Detected Not Detected 72262-8) ALYSSA (test code = ALYSSA) ID NOW COVID-19 Assay is an isothermal nucleic acid amplification test intended for the qualitative detection of nucleic acid from SARS-CoV-2 viral RNA in nasopharyngeal (ALUMINUM CAN COLLECTOR) specimens. It is used under Emergency Use [...] indicated. Lab Interpretation Normal (test code = 96853-4) [facility]-19 [id number] 01:23:00 Test Item Value Reference Range Interpretation Comments SARS-CoV-2 (test code = Not Detected Not Detected 25056-2) ALYSSA (test code = ALYSSA) ID NOW COVID-19 Assay is an isothermal nucleic acid amplification test intended for the qualitative detection of nucleic acid from SARS-CoV-2 viral RNA in nasopharyngeal (ALUMINUM CAN COLLECTOR) specimens. It is used under Emergency Use [...] indicated. Lab Interpretation Normal (test code = 90106-7) [facility]AL [id number] 00:12:00 Test Item Value Reference Range Interpretation Comments NT-proBNP (test code 585 pg/mL See_Comment H [Autom ated = 6670091200) message] The system which generated this result transmitted reference range : <=450. The reference range was not used to interpret this result as normal/abnormal . ALYSSA (test code = ALYSSA) Biotin has been reported to cause a negative bias, interpret results relative to patient's use of biotin. Lab Interpretation Abnormal (test code = 19134-6) [facility] [id number] 00:12:00 Test Item Value Reference Range Interpretation Comments TROPONIN I (test 0.030 ng/mL See_Comment [Automated code = 4549005666) message] The system which generated this result [...] ? Lab Interpretation Normal (test code = 66405-1) [facility] [id number] 00:12:00 Test Item Value Reference Range Interpretation Comments NT-proBNP (test code 585 pg/mL See_Comment H [Autom ated = 6027490322) message] The system which generated this result transmitted reference range : <=450. The reference range was not used to interpret this result as normal/abnormal . ALYSSA (test code = ALYSSA) Biotin has been reported to cause a negative bias, interpret results relative to patient's use of biotin. Lab Interpretation Abnormal (test code = 67742-3) [facility] [id number] 00:12:00 Test Item Value Reference Range Interpretation Comments TROPONIN I (test 0.030 ng/mL See_Comment [Automated code = 1083559805) message] The system which generated this result [...] ? Lab Interpretation Normal (test code = 86850-6) [facility]. METABOLIC PANEL (33795)2020-03-23 00:03:00 Test Item Value Reference Range Interpretation Comments NA (test code = 138 mmol/L 135-145 2894206856) K (test code = 4.1 mmol/L 3.5-5 6253089157) CL (test code = 103 mmol/L 98-108 5819177538) CO2 TOTAL (test code = 26 mmol/L 23-31 0446143198) AGAP (test code = 2-16 9817272521) BUN (test code = 18 mg/dL 7-23 0544097842) GLUCOSE (test code = 157 mg/dL 70-110 H 2718113574) CREATININE (test code = 1.19 mg/dL 0.6-1.25 0087030555) TOTAL BILI (test code = 1.1 mg/dL 0.1-1.6 2202364634) CALCIUM (test code = 9.2 mg/dL 8.6-10.6 1593236996) T PROTEIN (test code = 6.8 g/dL 6.3-8.2 6981524282) ALBUMIN (test code = 4.0 g/dL 3.5-5 8016212150) ALK PHOS (test code = 51 U/L 34-122 7765197412) ALTv (test code = 16 U/L 5-50 1742-6) AST(SGOT) (test code = 23 U/L 13-40 1577865398) eGFR Calculation mL/min/1.73m2 (Non-) (test code = 7709533331) eGFR Calculation mL/min/1.73m2 () (test code = 6720677513) ALYSSA (test code = ALYSSA) Association of [...] tests). Lab Interpretation Abnormal (test code = 67067-4) [facility]. METABOLIC PANEL (42370)2020-03-23 00:03:00 Test Item Value Reference Range Interpretation Comments NA (test code = 138 mmol/L 135-145 4610651160) K (test code = 4.1 mmol/L 3.5-5 9175228728) CL (test code = 103 mmol/L 98-108 5169818048) CO2 TOTAL (test code = 26 mmol/L 23-31 3261713350) AGAP (test code = 2-16 6116919949) BUN (test code = 18 mg/dL 7-23 5331834295) GLUCOSE (test code = 157 mg/dL 70-110 H 6504678762) CREATININE (test code = 1.19 mg/dL 0.6-1.25 5276859273) TOTAL BILI (test code = 1.1 mg/dL 0.1-1.5 1677219844) CALCIUM (test code = 9.2 mg/dL 8.6-10.6 7790504253) T PROTEIN (test code = 6.8 g/dL 6.3-8.2 1085101976) ALBUMIN (test code = 4.0 g/dL 3.5-5 9714148696) ALK PHOS (test code = 51 U/L 34-122 7116980473) ALTv (test code = 16 U/L 5-50 1742-6) AST(SGOT) (test code = 23 U/L 13-40 5247359307) eGFR Calculation mL/min/1.73m2 (Non-) (test code = 7858370893) eGFR Calculation mL/min/1.73m2 () (test code = 2473876571) ALYSSA (test code = ALYSSA) Association of [...] tests). Lab Interpretation Abnormal (test code = 57484-6) [facility] WITH [id number] 23:57:00 Test Item Value Reference Range Interpretation [...] RDW-SD (test code = 49.6 fL 38.5-51.6 19561-4) RDW-CV (test code = 14.6 % 12.1-15.4 788-0) PLT (test code = See_Comment L [Automated 777-3) message] The sy stem which generated this result transmitted reference range : 150 - 328 10*3/ ?L. The reference r corey was not used to interpret this result as normal/abnormal . MPV (test code = 9.9 fL 9.8-13 02673-6) NRBC/100 WBC (test See_Comment [Automat ed code = 3645653086) message] The system which generated this result transmitted reference range : 0.0 - 10.0 /100 WBCs. The refer ence range was not u sed to interpret th is result as normal/abnormal . NRBC x10^3 (test code <0.01 See_Comment [Auto mated = 0554650798) message] The s ystem which generated this result transmitted reference range : 10*3/?L. The reference range was not used to interpret this result as normal/abnormal . GRAN MAT (NEUT) % 55.3 % (test code = 770-8) IMM GRAN % (test code 0.20 % = 1376572980) LYMPH % (test code = 28.3 % 736-9) MONO % (test code = 12.6 % 5905-5) EOS % (test code = 3.1 % 713-8) BASO % (test code = 0.5 % 706-2) GRAN MAT x10^3(ANC) 3.20 10*3/uL 1.99-6.95 (test code = 2471494338) IMM GRAN x10^3 (test <0.03 0-0.06 code = 9051283126) LYMPH x10^3 (test code 1.64 10*3/uL 1.09-3.23 = 731-0) MONO x10^3 (test code 0.73 10*3/uL 0.36-1.02 = 742-7) EOS x10^3 (test code = 0.18 10*3/uL 0.06-0.53 711-2) BASO x10^3 (test code 0.03 10*3/uL 0.01-0.09 = 704-7) Lab Interpretation Abnormal (test code = 51749-6) [facility] WITH [id number] 23:57:00 Test Item Value Reference Range Interpretation [...] RDW-SD (test code = 49.6 fL 38.5-51.6 48542-9) RDW-CV (test code = 14.6 % 12.1-15.4 788-0) PLT (test code = See_Comment L [Automated 777-3) message] The sy stem which generated this result transmitted reference range : 150 - 328 10*3/ ?L. The reference r corey was not used to interpret this result as normal/abnormal . MPV (test code = 9.9 fL 9.8-13 93361-9) NRBC/100 WBC (test See_Comment [Automat ed code = 7323764830) message] The system which generated this result transmitted reference range : 0.0 - 10.0 /100 WBCs. The refer ence range was not u sed to interpret th is result as normal/abnormal . NRBC x10^3 (test code <0.01 See_Comment [Auto mated = 5257609534) message] The s ystem which generated this result transmitted reference range : 10*3/?L. The reference range was not used to interpret this result as normal/abnormal . GRAN MAT (NEUT) % 55.3 % (test code = 770-8) IMM GRAN % (test code 0.20 % = 7483733898) LYMPH % (test code = 28.3 % 736-9) MONO % (test code = 12.6 % 5905-5) EOS % (test code = 3.1 % 713-8) BASO % (test code = 0.5 % 706-2) GRAN MAT x10^3(ANC) 3.20 10*3/uL 1.99-6.95 (test code = 1036636467) IMM GRAN x10^3 (test <0.03 0-0.06 code = 7699519156) LYMPH x10^3 (test code 1.64 10*3/uL 1.09-3.23 = 731-0) MONO x10^3 (test code 0.73 10*3/uL 0.36-1.02 = 742-7) EOS x10^3 (test code = 0.18 10*3/uL 0.06-0.53 711-2) BASO x10^3 (test code 0.03 10*3/uL 0.01-0.09 = 704-7) Lab Interpretation Abnormal (test code = 75059-8) [facility] [id number] 21:48:00 Test Item Value Reference Range Interpretation Comments SARS-CoV-2 (test code = Not Detected Not Detected 28463-8) ALYSSA (test code = ALYSSA) ID NOW COVID-19 Assay is an isothermal nucleic acid amplification test intended for the qualitative detection of nucleic acid from SARS-CoV-2 viral RNA in nasopharyngeal (ALUMINUM CAN COLLECTOR) specimens. It is used under Emergency Use [...] indicated. Lab Interpretation Normal (test code = 42040-3) [facility] [id number] 21:44:00 Test Item Value Reference Range Interpretation Comments TROPONIN I (test 0.027 ng/mL See_Comment [Automated code = 6740556518) message] The system which generated this result [...] ? Lab Interpretation Normal (test code = 32604-3) [facility]Proth[facility] Time (PT) / [id number] 21:41:00 Test Item Value Reference Range Interpretation [...] tions. Lab Interpretation (test Normal code = 84289-8) [facility]AL [id number] 21:39:00 Test Item Value Reference Range Interpretation Comments NT-proBNP (test code 663 pg/mL See_Comment H [Autom ated = 1709504531) message] The system which generated this result transmitted reference range : <=450. The reference range was not used to interpret this result as normal/abnormal . ALYSSA (test code = ALYSSA) Biotin has been reported to cause a negative bias, interpret results relative to patient's use of biotin. Lab Interpretation Abnormal (test code = 47002-2) [facility]COM[facility] METABOLIC PANEL (44959)2020-03-21 21:37:00 Test Item Value Reference Range Interpretation Comments NA (test code = 139 mmol/L 135-145 3904430630) K (test code = 4.1 mmol/L 3.5-5 8194873888) CL (test code = 102 mmol/L 98-108 3806505326) CO2 TOTAL (test code = 29 mmol/L 23-31 5442571921) AGAP (test code = 2-16 9564470292) BUN (test code = 18 mg/dL 7-23 4305137850) GLUCOSE (test code = 277 mg/dL 70-110 H 0069886653) CREATININE (test code = 1.23 mg/dL 0.6-1.25 4044908478) TOTAL BILI (test code = 1.3 mg/dL 0.1-1.1 H 1536341805) CALCIUM (test code = 9.8 mg/dL 8.6-10.6 8474351009) T PROTEIN (test code = 7.0 g/dL 6.3-8.2 0841969994) ALBUMIN (test code = 4.2 g/dL 3.5-5 4556661991) ALK PHOS (test code = 50 U/L 34-122 2468450679) ALTv (test code = 15 U/L 5-50 1742-6) AST(SGOT) (test code = 22 U/L 13-40 9316409577) eGFR Calculation mL/min/1.73m2 (Non-) (test code = 8298888567) eGFR Calculation mL/min/1.73m2 () (test code = 3839125999) ALYSSA (test code = ALYSSA) Association of [...] tests). Lab Interpretation Abnormal (test code = 89467-9) [facility] HospitalLip[facility] [id number] 21:37:00 Test Item Value Reference Range Interpretation Comments LIPASE (test code = 1240841634) 161 U/L 0-220 Lab Interpretation (test code = Normal 59838-7) [facility] 1 [id number] 20:46:31HISTORY: Chest pain. TECHNIQUE: Portable AP view [...] and intrathecal electrodesin lower thoracic spinal canal noted.Mild thoracolumbar scoliosis noted.CONCLUSIONS: Mild cardiomegaly. [facility] HospitalLagaic Acid Whole [id number] 20:43:00 Test Item Value Reference Range Interpretation Comments LACTIC ACID (test code = 1.91 mmol/L 0.3-2.6 3061001384) [facility] GLUCOSE (AUTOMATED)2020-03-07 20:58:00 Test Item Value Reference Range Interpretation Comments POCT GLU (test code = 3840383806) 216 mg/dL 70-110 H Lab Interpretation (test code = Abnormal 69279-1) [facility] GLUCOSE (AUTOMATED)2020-03-07 16:00:00 Test Item Value Reference Range Interpretation Comments POCT GLU (test code = 3941087282) 168 mg/dL 70-110 H Lab Interpretation (test code = Abnormal 76451-2) [facility] GLUCOSE (AUTOMATED)2020-03-07 13:07:00 Test Item Value Reference Range Interpretation Comments POCT GLU (test code = 7193276619) 148 mg/dL 70-110 H Lab Interpretation (test code = Abnormal 00477-1) [facility] HospitalTROPONIN [id number] 11:27:00 Test Item Value Reference Range Interpretation Comments TROPONIN I (test 0.051 ng/mL See_Comment H [Automated code = 2154816522) message] The system which generated this result [...] ? Lab Interpretation Abnormal (test code = 29217-3) [facility] [id number] 11:24:00 Test Item Value Reference Range Interpretation Comments NT-proBNP (test code 336 pg/mL See_Comment [Autom ated = 0363065522) message] The system which generated this result transmitted reference range : <=450. The reference range was not used to interpret this result as normal/abnormal . ALYSSA (test code = ALYSSA) Biotin has been reported to cause a negative bias, interpret results relative to patient's use of biotin. Lab Interpretation Normal (test code = 72406-7) [facility] HospitalB[facility] (NA, K, CL, CO2, GLUCOSE, BUN, CREATININE, CA)2020-03-07 11:14:00 Test Item Value Reference Range Interpretation Comments NA (test code = 138 mmol/L 135-145 1649514913) K (test code = 3.8 mmol/L 3.5-5 2160288363) CL (test code = 97 mmol/L 98-108 L 4810225127) CO2 TOTAL (test code = 30 mmol/L 23-31 5842799729) AGAP (test code = 2-16 5978919329) BUN (test code = 36 mg/dL 7-23 H 4773958203) GLUCOSE (test code = 140 mg/dL 70-110 H 0720524816) CREATININE (test code = 1.50 mg/dL 0.6-1.25 H 1585672507) CALCIUM (test code = 10.0 mg/dL 8.6-10.6 0398681304) eGFR Calculation mL/min/1.73m2 (Non-) (test code = 4298675021) eGFR Calculation mL/min/1.73m2 () (test code = 3807392228) ALYSSA (test code = ALYSSA) Association of [...] tests). Lab Interpretation Abnormal (test code = 08145-2) [facility] HospitalURIC [id number] 11:14:00 Test Item Value Reference Range Interpretation Comments URIC ACID (test code = 5142741479) 5.4 mg/dL 3.6-8 Lab Interpretation (test code = Normal 97607-5) [facility] HospitalCB WITH [id number] 10:53:00 Test Item Value Reference Range Interpretation [...] RDW-SD (test code = 45.1 fL 38.5-51.6 15743-8) RDW-CV (test code = 14.2 % 12.1-15.4 788-0) PLT (test code = See_Comment [Automated 777-3) message] The sy stem which generated this result transmitted reference range : 150 - 328 10*3/ ?L. The reference r corey was not used to interpret this result as normal/abnormal . MPV (test code = 9.8 fL 9.8-13 65537-6) NRBC/100 WBC (test See_Comment [Automat ed code = 9143620634) message] The system which generated this result transmitted reference range : 0.0 - 10.0 /100 WBCs. The refer ence range was not u sed to interpret th is result as normal/abnormal . NRBC x10^3 (test code <0.01 See_Comment [Auto mated = 5353027375) message] The s ystem which generated this result transmitted reference range : 10*3/?L. The reference range was not used to interpret this result as normal/abnormal . GRAN MAT (NEUT) % 51.0 % (test code = 770-8) IMM GRAN % (test code 0.50 % = 4061660322) LYMPH % (test code = 32.0 % 736-9) MONO % (test code = 11.3 % 5905-5) EOS % (test code = 4.3 % 713-8) BASO % (test code = 0.9 % 706-2) GRAN MAT x10^3(ANC) 2.85 10*3/uL 1.99-6.95 (test code = 2572380637) IMM GRAN x10^3 (test 0.03 10*3/uL 0-0.06 code = 3692634625) LYMPH x10^3 (test code 1.79 10*3/uL 1.09-3.23 = 731-0) MONO x10^3 (test code 0.63 10*3/uL 0.36-1.02 = 742-7) EOS x10^3 (test code = 0.24 10*3/uL 0.06-0.53 711-2) BASO x10^3 (test code 0.05 10*3/uL 0.01-0.09 = 704-7) Lab Interpretation Abnormal (test code = 70992-0) [facility] GLUCOSE (AUTOMATED)2020-03-06 22:46:00 Test Item Value Reference Range Interpretation Comments POCT GLU (test code = 2763081371) 209 mg/dL 70-110 H Lab Interpretation (test code = Abnormal 22807-6) [facility] GLUCOSE (AUTOMATED)2020-03-06 16:23:00 Test Item Value Reference Range Interpretation Comments POCT GLU (test code = 5490695968) 254 mg/dL 70-110 H Lab Interpretation (test code = Abnormal 32321-3) [facility] GLUCOSE (AUTOMATED)2020-03-06 12:51:00 Test Item Value Reference Range Interpretation Comments POCT GLU (test code = 2374504146) 126 mg/dL 70-110 H Lab Interpretation (test code = Abnormal 25645-0) [facility]TROP[facility]IN [id number] 10:16:00 Test Item Value Reference Range Interpretation Comments TROPONIN I (test 0.056 ng/mL See_Comment H [Automated code = 4123075109) message] The system which generated this result [...] ? Lab Interpretation Abnormal (test code = 18533-1) [facility] (NA, K, CL, CO2, GLUCOSE, BUN, CREATININE, CA)2020-03-06 10:13:00 Test Item Value Reference Range Interpretation Comments NA (test code = 136 mmol/L 135-145 8672863853) K (test code = 4.1 mmol/L 3.5-5 9405879255) CL (test code = 95 mmol/L 98-108 L 9067583234) CO2 TOTAL (test code = 30 mmol/L 23-31 2972770012) AGAP (test code = 2-16 5864084076) BUN (test code = 35 mg/dL 7-23 H 1945467415) GLUCOSE (test code = 174 mg/dL 70-110 H 1645023459) CREATININE (test code = 1.67 mg/dL 0.6-1.25 H 1361912183) CALCIUM (test code = 9.7 mg/dL 8.6-10.6 9322908843) eGFR Calculation mL/min/1.73m2 (Non-) (test code = 9847681512) eGFR Calculation mL/min/1.73m2 () (test code = 3798753000) ALYSSA (test code = ALYSSA) Association of [...] tests). Lab Interpretation Abnormal (test code = 17343-0) [facility] WITH [id number] 09:16:00 Test Item Value Reference Range Interpretation [...] RDW-SD (test code = 45.6 fL 38.5-51.6 80482-4) RDW-CV (test code = 14.3 % 12.1-15.4 788-0) PLT (test code = See_Comment [Automated 777-3) message] The sy stem which generated this result transmitted reference range : 150 - 328 10*3/ ?L. The reference r corey was not used to interpret this result as normal/abnormal . MPV (test code = 9.8 fL 9.8-13 17949-0) NRBC/100 WBC (test See_Comment [Automat ed code = 6279210102) message] The system which generated this result transmitted reference range : 0.0 - 10.0 /100 WBCs. The refer ence range was not u sed to interpret th is result as normal/abnormal . NRBC x10^3 (test code <0.01 See_Comment [Auto mated = 7408138898) message] The s ystem which generated this result transmitted reference range : 10*3/?L. The reference range was not used to interpret this result as normal/abnormal . GRAN MAT (NEUT) % 56.1 % (test code = 770-8) IMM GRAN % (test code 0.10 % = 1167153259) LYMPH % (test code = 29.7 % 736-9) MONO % (test code = 9.6 % 5905-5) EOS % (test code = 3.8 % 713-8) BASO % (test code = 0.7 % 706-2) GRAN MAT x10^3(ANC) 3.79 10*3/uL 1.99-6.95 (test code = 0407104087) IMM GRAN x10^3 (test <0.03 0-0.06 code = 8132690668) LYMPH x10^3 (test code 2.01 10*3/uL 1.09-3.23 = 731-0) MONO x10^3 (test code 0.65 10*3/uL 0.36-1.02 = 742-7) EOS x10^3 (test code = 0.26 10*3/uL 0.06-0.53 711-2) BASO x10^3 (test code 0.05 10*3/uL 0.01-0.09 = 704-7) Lab Interpretation Abnormal (test code = 77497-0) [facility]2020-03-06 01:25:00 Test Item Value Reference Range Interpretation Comments POCT GLU (test code = 5888422283) 208 mg/dL 70-110 H Lab Interpretation (test code = Abnormal 38674-3) [facility]TR[facility]IN [id number] 00:08:00 Test Item Value Reference Range Interpretation Comments TROPONIN I (test 0.047 ng/mL See_Comment H [Automated code = 6078027721) message] The system which generated this result [...] ? Lab Interpretation Abnormal (test code = 43993-7) [facility] GLUCOSE (AUTOMATED)2020-03-05 21:19:00 Test Item Value Reference Range Interpretation Comments POCT GLU (test code = 2523661427) 234 mg/dL 70-110 H Lab Interpretation (test code = Abnormal 10903-5) [facility] GLUCOSE (AUTOMATED)2020-03-05 16:55:00 Test Item Value Reference Range Interpretation Comments POCT GLU (test code = 0010000610) 258 mg/dL 70-110 H Lab Interpretation (test code = Abnormal 71735-3) [facility] GLUCOSE (AUTOMATED)2020-03-05 12:59:00 Test Item Value Reference Range Interpretation Comments POCT GLU (test code = 9700733603) 194 mg/dL 70-110 H Lab Interpretation (test code = Abnormal 18532-7) [facility]TR[facility] [id number] 10:54:00 Test Item Value Reference Range Interpretation Comments TROPONIN I (test 0.071 ng/mL See_Comment H [Automated code = 7895313672) message] The system which generated this result [...] ? Lab Interpretation Abnormal (test code = 41624-8) [facility] (NA, K, CL, CO2, GLUCOSE, BUN, CREATININE, CA)2020-03-05 10:43:00 Test Item Value Reference Range Interpretation Comments NA (test code = 139 mmol/L 135-145 1082900236) K (test code = 4.1 mmol/L 3.5-5 3780548511) CL (test code = 101 mmol/L 98-108 7821887927) CO2 TOTAL (test code = 27 mmol/L 23-31 3354362104) AGAP (test code = 2-16 2603568204) BUN (test code = 25 mg/dL 7-23 H 6994952100) GLUCOSE (test code = 243 mg/dL 70-110 H 7706466706) CREATININE (test code = 1.22 mg/dL 0.6-1.25 9242559311) CALCIUM (test code = 9.8 mg/dL 8.6-10.6 6087601011) eGFR Calculation mL/min/1.73m2 (Non-) (test code = 9658070909) eGFR Calculation mL/min/1.73m2 () (test code = 5391968258) ALYSSA (test code = ALYSSA) Association of [...] tests). Lab Interpretation Abnormal (test code = 28583-2) [facility] WITH [id number] 10:23:00 Test Item Value Reference Range Interpretation Comments WBC (test code = See_Comment [Automated message] 6690-2) The system [employer] generated this result transmitted ref erence range: 4.20 - 1 0.70 10*3/?L. The re ference range was not u sed to interpret this result as normal/abnor mal. RBC (test code = See_Comment [Automated message] 789-8) The system [employer] generated this result transmitted ref erence range: [...] RDW-SD (test code 47.8 fL 38.5-51.6 = 01691-6) RDW-CV (test code 14.4 % 12.1-15.4 = 788-0) PLT (test code = See_Comment [Automated message] 777-3) The system whic h generated this result transmitted ref erence range: 150 - 32 8 10*3/?L. The re ference range was not u sed to interpret this result as normal/abnor mal. MPV (test code = 9.8 fL 9.8-13 33508-6) NRBC/100 WBC (test See_Comment [Automat ed message] code = 3486600996) The syste m which generated this result transmitted ref erence range: 0.0 - 10 .0 /100 WBCs. The refer ence range was not u sed to interpret this result as normal/abnor mal. NRBC x10^3 (test <0.01 See_Comment [Automated message] code = 4761730406) The syste m which generated this result transmitted ref erence range: 10*3/?L. The reference range was not used to interpr et this result as normal/abnormal . GRAN MAT (NEUT) % 48.8 % (test code = 770-8) IMM GRAN % (test 0.20 % code = 4879507551) LYMPH % (test code 34.7 % = 736-9) MONO % (test code 10.8 % = 5905-5) EOS % (test code = 4.9 % 713-8) BASO % (test code 0.6 % = 706-2) GRAN MAT 2.49 10*3/uL 1.99-6.95 x10^3(ANC) (test code = 9042038936) IMM GRAN x10^3 <0.03 0-0.06 (test code = 7366192694) LYMPH x10^3 (test 1.77 10*3/uL 1.09-3.23 code = 731-0) MONO x10^3 (test 0.55 10*3/uL 0.36-1.02 code = 742-7) EOS x10^3 (test 0.25 10*3/uL 0.06-0.53 code = 711-2) BASO x10^3 (test 0.03 10*3/uL 0.01-0.09 code = 704-7) [facility] 1 [id number] 03:06:08 No acute cardiopulmonary process. Unchanged enlargement of the cardiac silhouette. Preliminary Report Dictated by Resident: Lauro Palacio MD., have reviewed this study and agree withthe abovereport.PROCEDURE: XR CHEST 1 VW CLINICAL INDICATION: chest COMPARISON: 01/15/2020 TECHNIQUE: A frontal view of the chest was obtained FINDINGS: No focal consolidation, pleural effusion, or pneumo thorax. The cardiac silhouette is mildly to moderately [...] enlarged, unchanged.Atherosclerotic calcifications are seen in the aorticarch.No acute osseous abnormality. Spinal stimulator leads terminating over themid to lower thoracicspine.IMPRESSIONNo acute cardiopulmonary process.Unchanged enlargement of the cardiac silhouette. Pre liminary Report Dictated by Resident: Lauro Merrill MD., have reviewed this study and agree with the abovereport.[facility] COVID-19 [id number] 00:34:00 Test Item Value Reference Range Interpretation Comments SARS-CoV-2 (test code = Not Detected Not Detected 22049-0) ALYSSA (test code = ALYSSA) ID NOW COVID-19 Assay is an isothermal nucleic acid amplification test intended for the qualitative detection of nucleic acid from SARS-CoV-2 viral RNA in nasopharyngeal (ALUMINUM CAN COLLECTOR) specimens. It is used under Emergency Use [...] indicated. Lab Interpretation Normal (test code = 68115-4) [facility] HospitalTroponin [id number] 00:08:00 Test Item Value Reference Range Interpretation Comments TROPONIN I (test 0.056 ng/mL See_Comment H [Automated code = 3889298525) message] The system which generated this result [...] ? Lab Interpretation Abnormal (test code = 84107-8) [facility]AL [id number] 00:04:00 Test Item Value Reference Range Interpretation Comments NT-proBNP (test code 562 pg/mL See_Comment H [Autom ated = 5657344854) message] The system which generated this result transmitted reference range : <=450. The reference range was not used to interpret this result as normal/abnormal . ALYSSA (test code = ALYSSA) Biotin has been reported to cause a negative bias, interpret results relative to patient's use of biotin. Lab Interpretation Abnormal (test code = 41076-0) [facility] HospitalProthrombin Time (PT) / [id number] 23:57:00 Test Item Value Reference Range Interpretation Comments PROTIME PATIENT (test See_Comment [Auto mated message] code = 5964-2) The system [employer] generated this result transmitted ref erence range: 12.0 - 1 4.7 Seconds. The re ference range was not u sed to interpret this result as normal/abnor mal. INR (test code = 6301-6) Nor mal INR <1.1; Warfarin Therap eutic range 2.0 to 3. 0 or 2.5 to 3.5, dep ending upon the indica tions. Lab Interpretation (test Normal code = 67612-2) [facility] Metabolic Panel (NA, K, CL, CO2, GLUCOSE, BUN, CREATININE, CA)2020-03-04 23:56:00 Test Item Value Reference Range Interpretation Comments NA (test code = 139 mmol/L 135-145 2258907647) K (test code = 4.1 mmol/L 3.5-5 4989205916) CL (test code = 102 mmol/L 98-108 9808081393) CO2 TOTAL (test code = 29 mmol/L 23-31 9688225141) AGAP (test code = 2-16 9965074114) BUN (test code = 23 mg/dL 7-23 0565320287) GLUCOSE (test code = 193 mg/dL 70-110 H 7448470996) CREATININE (test code = 1.25 mg/dL 0.6-1.25 6235555258) CALCIUM (test code = 9.7 mg/dL 8.6-10.6 6547402739) eGFR Calculation mL/min/1.73m2 (Non-) (test code = 7986470251) eGFR Calculation mL/min/1.73m2 () (test code = 7274781818) ALYSSA (test code = ALYSSA) Association of [...] tests). Lab Interpretation Abnormal (test code = 27241-9) [facility] HospitalHepatic Function Panel (ALB, T.PRO, BILI T, BU/BC, ALT, AST, ALK PHOS)2020-03-04 23:56:00 Test Item Value Reference Range Interpretation Comments TOTAL BILI (test code = 8745930240) 1.1 mg/dL 0.1-1.1 BILI UNCON (test code = 0462379088) 1.1 mg/dL 0.1-1.1 BILI CONJ (test code = 3933575598) 0.0 mg/dL 0-0.3 T PROTEIN (test code = 6088579329) 7.1 g/dL 6.3-8.2 ALBUMIN (test code = 3615799858) 4.1 g/dL 3.5-5 ALK PHOS (test code = 6411917603) 61 U/L 34-122 ALTv (test code = 1742-6) 16 U/L 5-50 AST(SGOT) (test code = 3861548703) 23 U/L 13-40 Lab Interpretation (test code = Normal 05090-2) [facility] HospitalLipase [id number] 23:56:00 Test Item Value Reference Range Interpretation Comments LIPASE (test code = 0361059457) 149 U/L 0-220 Lab Interpretation (test code = Normal 26492-2) [facility] HospitalaPTT2020-04-19 23:56:00 Test Item Value Reference Range [...] seconds. Lab Interpretation Normal (test code = 95662-9) [facility] HospitalCBC WITH [id number] 23:46:00 Test Item Value Reference Range Interpretation Comments WBC (test code = See_Comment [Automated 6590-2) message] The sy stem which generated this [...] RDW-SD (test code = 48.3 fL 38.5-51.6 47571-3) RDW-CV (test code = 14.7 % 12.1-15.4 788-0) PLT (test code = See_Comment [Automated 777-3) message] The sy stem which generated this result transmitted reference range : 150 - 328 10*3/ ?L. The reference r corey was not used to interpret this result as normal/abnormal . MPV (test code = 9.8 fL 9.8-13 98569-6) NRBC/100 WBC (test See_Comment [Automat ed code = 9512408539) message] The system which generated this result transmitted reference range : 0.0 - 10.0 /100 WBCs. The refer ence range was not u sed to interpret th is result as normal/abnormal . NRBC x10^3 (test code <0.01 See_Comment [Auto mated = 7259238757) message] The s ystem which generated this result transmitted reference range : 10*3/?L. The reference range was not used to interpret this result as normal/abnormal . GRAN MAT (NEUT) % 60.1 % (test code = 770-8) IMM GRAN % (test code 0.20 % = 4228520314) LYMPH % (test code = 26.4 % 736-9) MONO % (test code = 9.9 % 5905-5) EOS % (test code = 2.8 % 713-8) BASO % (test code = 0.6 % 706-2) GRAN MAT x10^3(ANC) 3.17 10*3/uL 1.99-6.95 (test code = 6338138765) IMM GRAN x10^3 (test <0.03 0-0.06 code = 6737838346) LYMPH x10^3 (test code 1.39 10*3/uL 1.09-3.23 = 731-0) MONO x10^3 (test code 0.52 10*3/uL 0.36-1.02 = 742-7) EOS x10^3 (test code = 0.15 10*3/uL 0.06-0.53 711-2) BASO x10^3 (test code 0.03 10*3/uL 0.01-0.09 = 704-7) Lab Interpretation Abnormal (test code = 66372-4) [facility] GLUCOSE (AUTOMATED)2020-03-02 16:04:00 Test Item Value Reference Range Interpretation Comments POCT GLU (test code = 8782231114) 214 mg/dL 70-110 H Lab Interpretation (test code = Abnormal 18733-8) [facility] GLUCOSE (AUTOMATED)2020-03-02 16:04:00 Test Item Value Reference Range Interpretation Comments POCT GLU (test code = 5865849912) 271 mg/dL 70-110 H Lab Interpretation (test code = Abnormal 90288-1) [facility] [id number] 09:43:00 Test Item Value Reference Range Interpretation Comments NT-proBNP (test code 1670 pg/mL See_Comment H [Autom ated = 4792540748) message] The system which generated this result transmitted reference range : <=450. The reference range was not used to interpret this result as normal/abnormal . ALYSSA (test code = ALYSSA) Biotin has been reported to cause a negative bias, interpret results relative to patient's use of biotin. Lab Interpretation Abnormal (test code = 33191-8) [facility] HospitalBAS[facility] METABOLIC PANEL (NA, K, CL, CO2, GLUCOSE, BUN, CREATININE, CA)2020-03-02 09:33:00 Test Item Value Reference Range Interpretation Comments NA (test code = 143 mmol/L 135-145 3845697361) K (test code = 3.8 mmol/L 3.5-5 6763203761) CL (test code = 105 mmol/L 98-108 2747571019) CO2 TOTAL (test code = 28 mmol/L 23-31 4054529426) AGAP (test code = 2-16 1538194108) BUN (test code = 19 mg/dL 7-23 8506642864) GLUCOSE (test code = 152 mg/dL 70-110 H 5956648939) CREATININE (test code = 1.18 mg/dL 0.6-1.25 5246810949) CALCIUM (test code = 9.0 mg/dL 8.6-10.6 9962395307) eGFR Calculation mL/min/1.73m2 (Non-) (test code = 0096367484) eGFR Calculation mL/min/1.73m2 () (test code = 5254284970) ALYSSA (test code = ALYSSA) Association of [...] tests). Lab Interpretation Abnormal (test code = 09633-6) [facility] 09[facility]33:00 Test Item Value Reference Range Interpretation Comments MAGNESIUM (test code = 8033316018) 1.8 mg/dL 1.7-2.4 Lab Interpretation (test code = Normal 95721-2) [facility]2020-03-01 20:42:00 Test Item Value Reference Range Interpretation Comments POCT GLU (test code = 9207101054) 231 mg/dL 70-110 H Lab Interpretation (test code = Abnormal 50722-5) [facility]VITAMIN B12, [id number] 11:51:00 Test Item Value Reference Range Interpretation Comments VIT B12 (test code = 325 pg/mL 240-930 6095218079) ALYSSA (test code = ALYSSA) Biotin has been reported to cause a positive bias, interpret results relative to patient's use of biotin. Lab Interpretation (test Normal code = 47207-9) [facility]FOLATE2020-04-[facility] 11:49:00 Test Item Value Reference Range Interpretation Comments FOLATE SER (test code = >20.0 3-20 H Slig ht hemolysis 2172488050) Lab Interpretation (test Abnormal code = 64784-8) [facility]PROCALCITONIN2020-04-16 10:49:00 Test Item Value Reference Range Interpretation Comments Procalcitonin (test 3.05 ng/mL <0.07 H code = 5463949324) ALYSSA (test code = ALYSSA) INTERPRETATION OF [...] lung abscess/empyema. For further information please refer to:[email or web address] Lab Interpretation Abnormal (test code = 60394-7) [facility] HospitalFLAKOJr [id number] 09:58:00 Test Item Value Reference Range Interpretation Comments TROPONIN I (test 0.093 ng/mL See_Comment H [Automated code = 7936782530) message] The system which generated this result [...] ? Lab Interpretation Abnormal (test code = 11575-6) [facility]N-TERMINAL [id number] 09:55:00 Test Item Value Reference Range Interpretation Comments NT-proBNP (test code 4450 pg/mL See_Comment H [Autom ated = 1913752644) message] The system which generated this result transmitted reference range : <=450. The reference range was not used to interpret this result as normal/abnormal . ALYSSA (test code = ALYSSA) Biotin has been reported to cause a negative bias, interpret results relative to patient's use of biotin. Lab Interpretation Abnormal (test code = 59015-4) [facility] HospitalBasi Metabolic Panel (NA, K, CL, CO2, GLUCOSE, BUN, CREATININE, CA)2020-03-01 09:50:00 Test Item Value Reference Range Interpretation Comments NA (test code = 141 mmol/L 135-145 5214054421) K (test code = 3.5 mmol/L 3.5-5 1906943047) CL (test code = 105 mmol/L 98-108 2396578018) CO2 TOTAL (test code = 26 mmol/L 23-31 3392003394) AGAP (test code = 2-16 8051867243) BUN (test code = 13 mg/dL 7-23 7140252560) GLUCOSE (test code = 219 mg/dL 70-110 H 9573150932) CREATININE (test code = 1.01 mg/dL 0.6-1.25 4595049537) CALCIUM (test code = 8.7 mg/dL 8.6-10.6 0249912450) eGFR Calculation mL/min/1.73m2 (Non-) (test code = 9744888581) eGFR Calculation mL/min/1.73m2 () (test code = 6471886054) ALYSSA (test code = ALYSSA) Association of [...] tests). Lab Interpretation Abnormal (test code = 83610-3) [facility] HospitalMagnesium [id number] 09:50:00 Test Item Value Reference Range Interpretation Comments MAGNESIUM (test code = 9657209883) 1.9 mg/dL 1.7-2.4 Lab Interpretation (test code = Normal 60747-4) [facility] WITH [id number] 09:22:00 Test Item Value Reference Range Interpretation Comments WBC (test code = See_Comment [Automated 4090-2) message] The sy stem which generated this result transmitted reference range : 4.20 - 10.70 10*3/?L. The reference range was not used to interpret this result as normal/abnormal . RBC (test code = See_Comment L [Automated 343-8) message] The sy stem which generated this [...] RDW-SD (test code = 47.8 fL 38.5-51.6 05764-7) RDW-CV (test code = 14.8 % 12.1-15.4 788-0) PLT (test code = See_Comment L [Automated 777-3) message] The sy stem which generated this result transmitted reference range : 150 - 328 10*3/ ?L. The reference r corey was not used to interpret this result as normal/abnormal . MPV (test code = 9.9 fL 9.8-13 04640-3) NRBC/100 WBC (test See_Comment [Automat ed code = 5434826076) message] The system which generated this result transmitted reference range : 0.0 - 10.0 /100 WBCs. The refer ence range was not u sed to interpret th is result as normal/abnormal . NRBC x10^3 (test code <0.01 See_Comment [Auto mated = 1791479763) message] The s ystem which generated this result transmitted reference range : 10*3/?L. The reference range was not used to interpret this result as normal/abnormal . GRAN MAT (NEUT) % 66.0 % (test code = 770-8) IMM GRAN % (test code 0.30 % = 2035957052) LYMPH % (test code = 20.8 % 736-9) MONO % (test code = 9.5 % 5905-5) EOS % (test code = 2.8 % 713-8) BASO % (test code = 0.6 % 706-2) GRAN MAT x10^3(ANC) 4.44 10*3/uL 1.99-6.95 (test code = 5145565923) IMM GRAN x10^3 (test <0.03 0-0.06 code = 6888785980) LYMPH x10^3 (test code 1.40 10*3/uL 1.09-3.23 = 731-0) MONO x10^3 (test code 0.64 10*3/uL 0.36-1.02 = 742-7) EOS x10^3 (test code = 0.19 10*3/uL 0.06-0.53 711-2) BASO x10^3 (test code 0.04 10*3/uL 0.01-0.09 = 704-7) Lab Interpretation Abnormal (test code = 66047-2) [facility] HospitalGLYCOSYLATED HEMOGLOBIN (A1C)2020-03-01 06:49:00 Test Item Value [...] Indicated Lab Interpretation Abnormal (test code = 60259-2) [facility] HospitalURIC [id number] 06:25:00 Test Item Value Reference Range Interpretation Comments URIC ACID (test code = 5132821803) 2.3 mg/dL 3.6-8 L Lab Interpretation (test code = Abnormal 47762-1) [facility] HospitalSEDIMENTATION [id number] 05:25:00 Test Item Value Reference Range Interpretation Comments ESR (test code = See_Comment H [Automated message] 9936450086) The system [employer] h generated this result transmitted ref erence range: 0 - 10 m m/HR. The reference r corey was not used to interpret this result as normal/abnor mal. Lab Interpretation (test Abnormal code = 42731-7) [facility]N-TERMINAL [id number] 04:07:00 Test Item Value Reference Range Interpretation Comments NT-proBNP (test code 4080 pg/mL See_Comment H [Autom ated = 2123441171) message] The system which generated this result transmitted reference range : <=450. The reference range was not used to interpret this result as normal/abnormal . ALYSSA (test code = ALYSSA) Biotin has been reported to cause a negative bias, interpret results relative to patient's use of biotin. Lab Interpretation Abnormal (test code = 74169-0) [facility]PO[facility]2020-03-01 03:42:00 Test Item Value Reference Range Interpretation Comments POCT GLU (test code = 3792484153) 190 mg/dL 70-110 H Lab Interpretation (test code = Abnormal 84968-3) [facility] HospitalTROPONIN [id number] 03:30:00 Test Item Value Reference Range Interpretation Comments TROPONIN I (test 0.098 ng/mL See_Comment H [Automated code = 0336265688) message] The system which generated this result [...] ? Lab Interpretation Abnormal (test code = 65438-2) [facility] HospitalHEPATIC FUNCTION PANEL (99765) (ALB,T.PRO,BILI T,BU/BC,ALT,AST,ALK PHOS)2020-03-01 03:24:00 Test Item Value Reference Range Interpretation Comments TOTAL BILI (test code = 3838415657) 2.2 mg/dL 0.1-1.1 H BILI UNCON (test code = 1434688062) 2.0 mg/dL 0.1-1.1 H BILI CONJ (test code = 6691854950) 0.0 mg/dL 0-0.3 T PROTEIN (test code = 9093235502) 6.7 g/dL 6.3-8.2 ALBUMIN (test code = 4706995044) 4.0 g/dL 3.5-5 ALK PHOS (test code = 2931447597) 48 U/L 34-122 ALTv (test code = 1742-6) 18 U/L 5-50 AST(SGOT) (test code = 8103245324) 57 U/L 13-40 H Lab Interpretation (test code = Abnormal 91601-7) [facility] HospitalPhosphorus [id number] 03:17:00 Test Item Value Reference Range Interpretation Comments PHOSPHORUS (test code = 3.1 mg/dL 2.5-5 Slig ht hemolysis 7730371016) Lab Interpretation (test Normal code = 78665-7) [facility] HospitalPROTHROMBIN TIME / [id number] 03:08:00 Test Item Value Reference Range Interpretation [...] tions. Lab Interpretation (test Normal code = 95422-6) [facility] HospitalCREATINE [id number] 03:01:00 Test Item Value Reference Range Interpretation Comments CK (test code = 8873134534) 68 U/L 33-194 Lab Interpretation (test code = Normal 40564-4) [facility]URIC [id number] 02:41:00 Test Item Value Reference Range Interpretation Comments URIC ACID (test code = 9304500687) 2.3 mg/dL 3.6-8 L Lab Interpretation (test code = Abnormal 74019-0) [facility] HospitalTHYROID STIMULATING [id number] 02:26:00 Test Item Value Reference Range Interpretation Comments TSH (test code = See_Comment [Automated message] 6667622107) The system [employer] generated this result transmitted ref erence range: 0.45 - 4 .70 mIU/L. The refe rence range was not u sed to interpret this result as normal/abnor mal. Lab Interpretation (test Normal code = 48554-7) [facility] HospitalN-TERMINAL [id number] 02:04:00 Test Item Value Reference Range Interpretation Comments NT-proBNP (test code 4390 pg/mL See_Comment H [Autom ated = 0260431562) message] The system which generated this result transmitted reference range : <=450. The reference range was not used to interpret this result as normal/abnormal . ALYSSA (test code = ALYSSA) Biotin has been reported to cause a negative bias, interpret results relative to patient's use of biotin. Lab Interpretation Abnormal (test code = 28378-7) [facility]MAGNESIUM2020-04-16 02:01:00 Test Item Value Reference Range Interpretation Comments MAGNESIUM (test code = 8510306605) 1.5 mg/dL 1.7-2.4 L Lab Interpretation (test code = Abnormal 90807-7) [facility] HospitalLIPASE2020-04-16 00:22:00 Test Item Value Reference Range Interpretation Comments LIPASE (test code = 5171956158) 68 U/L 0-220 Lab Interpretation (test code = Normal 53834-3) [facility] HospitalCORONAVIRUS COVID-19 [id number] 23:42:00 Test Item Value Reference Range Interpretation Comments SARS-CoV-2 (test code = Not Detected Not Detected 77191-5) ALYSSA (test code = ALYSSA) ID NOW COVID-19 Assay is an isothermal nucleic acid amplification test intended for the qualitative detection of nucleic acid from SARS-CoV-2 viral RNA in nasopharyngeal (ALUMINUM CAN COLLECTOR) specimens. It is used under Emergency Use [...] indicated. Lab Interpretation Normal (test code = 69089-2) [facility] HospitalXR CHEST 1 VW [id number] 23:26:02 No acute intrathoracic abnormality, specifically no radiographic findingsto suggest COVID-19 pneumonia. Disclaimer: Generally, the findings on chest imaging in COVID-19 are notspecific, and overlap with other infections, including influenza, H1N1,SARS and MERS. According to the Centers for Disease Control (CDC) and recent statement ofthe [employer] [employer], viral testing remains the [...] stimulating device overlie the mid thoracic spine. [facility], Radiant Results InftUser - 02/29/2020 6:27 PM CDTPROCEDURE: CHEST, SINGLE VIEWCLINICAL INDICATION: 79 years Male presenting with chest pain/SOB COMPARISON: Chest radiographs 01/15/2020FINDINGS:Lines/hardware:Lungs: Mild perivascular congestion is present. No focal consolidation,pleural effusion, or pneumothorax.Mediastinum: The cardiomediastinal silhouette is enlarged, unchanged.Calcifications of the aortic arch.Osseous structures: No acute bony abnormality. The electrodes of a spinalcord stimulating device overlie the mid thoracic spine.IMPRESSIONNo acute intrathoracic abnormality, specifically no radiographic findingsto suggest COVID-19 pneumonia.Disclaimer: Generally, the findings on chest imaging in COVID-19 are notspecific, and overlap with other infections, including influenza, H1N1,SARS and MERS.According to the Centers for Disease Control (CDC) and recent statement ofthe [employer], viral testing remains the only specificmethod of diagnosis. Confirmation with the viral test is required, even ifradiologic findings are suggestive of COVID-[address] Preliminary Report Dictated by Resident: Radu Boo MD., have reviewed this study and agree with theabove report.[facility] HospitalFlakon [id number] 22:59:00 Test Item Value Reference Range Interpretation Comments TROPONIN I (test 0.071 ng/mL See_Comment H [Automated code = 1433727546) message] The system which generated this result [...] ? Lab Interpretation Abnormal (test code = 41223-9) [facility] HospitalBasi Metabolic Panel (NA, K, CL, CO2, GLUCOSE, BUN, CREATININE, CA)2020-02-29 22:48:00 Test Item Value Reference Range Interpretation Comments NA (test code = 141 mmol/L 135-145 0913478838) K (test code = 3.2 mmol/L 3.5-5 L 9136558654) CL (test code = 104 mmol/L 98-108 5791330674) CO2 TOTAL (test code = 25 mmol/L 23-31 9532921671) AGAP (test code = 2-16 1646737158) BUN (test code = 12 mg/dL 7-23 7654952148) GLUCOSE (test code = 250 mg/dL 70-110 H 2489995567) CREATININE (test code = 1.02 mg/dL 0.6-1.25 5453881939) CALCIUM (test code = 8.9 mg/dL 8.6-10.6 2491069083) eGFR Calculation mL/min/1.73m2 (Non-) (test code = 3693920265) eGFR Calculation mL/min/1.73m2 () (test code = 6313177337) ALYSSA (test code = ALYSSA) Association of [...] tests). Lab Interpretation Abnormal (test code = 44232-4) [facility] WITH [id number] 22:41:00 Test Item Value Reference Range Interpretation [...] RDW-SD (test code = 46.6 fL 38.5-51.6 77004-8) RDW-CV (test code = 14.6 % 12.1-15.4 788-0) PLT (test code = See_Comment [Automated 777-3) message] The sy stem which generated this result transmitted reference range : 150 - 328 10*3/ ?L. The reference r corey was not used to interpret this result as normal/abnormal . MPV (test code = 9.7 fL 9.8-13 L 94626-4) NRBC/100 WBC (test See_Comment [Automat ed code = 5675466705) message] The system which generated this result transmitted reference range : 0.0 - 10.0 /100 WBCs. The refer ence range was not u sed to interpret th is result as normal/abnormal . NRBC x10^3 (test code <0.01 See_Comment [Auto mated = 9754395159) message] The s ystem which generated this result transmitted reference range : 10*3/?L. The reference range was not used to interpret this result as normal/abnormal . GRAN MAT (NEUT) % 68.6 % (test code = 770-8) IMM GRAN % (test code 0.30 % = 5179009835) LYMPH % (test code = 18.6 % 736-9) MONO % (test code = 10.1 % 5905-5) EOS % (test code = 1.8 % 713-8) BASO % (test code = 0.6 % 706-2) GRAN MAT x10^3(ANC) 4.29 10*3/uL 1.99-6.95 (test code = 4590153369) IMM GRAN x10^3 (test <0.03 0-0.06 code = 1463296126) LYMPH x10^3 (test code 1.16 10*3/uL 1.09-3.23 = 731-0) MONO x10^3 (test code 0.63 10*3/uL 0.36-1.02 = 742-7) EOS x10^3 (test code = 0.11 10*3/uL 0.06-0.53 711-2) BASO x10^3 (test code 0.04 10*3/uL 0.01-0.09 = 704-7) Lab Interpretation Abnormal (test code = 41174-1) [facility] HospitalLagaic Acid Whole [id number] 22:38:00 Test Item Value Reference Range Interpretation Comments LACTIC ACID (test code = 1.88 mmol/L 0.3-2.6 1655534835) [facility] HospitalPONH GLUCOSE (AUTOMATED)2020-01-17 18:18:00 Test Item Value Reference Range Interpretation Comments POCT GLU (test code = 0821689092) 290 mg/dL 70-110 H Lab Interpretation (test code = Abnormal 38313-1) [facility] HospitalTROPONIN [id number] 18:01:00 Test Item Value Reference Range Interpretation Comments TROPONIN I (test 0.065 ng/mL See_Comment H [Automated code = 1675346592) message] The system which generated this result [...] ? Lab Interpretation Abnormal (test code = 69764-7) [facility] HospitalaPTT2020-03-03 17:10:00 Test Item Value Reference Range [...] seconds. Lab Interpretation Abnormal (test code = 59886-3) [facility]PO[facility]SE [facility]ATED)2020-01-17 11:59:00 Test Item Value Reference Range Interpretation Comments POCT GLU (test code = 8130064558) 185 mg/dL 70-110 H Lab Interpretation (test code = Abnormal 34167-8) [facility] HospitalTROPONIN [id number] 11:23:00 Test Item Value Reference Range Interpretation Comments TROPONIN I (test 0.073 ng/mL See_Comment H [Automated code = 0881869723) message] The system which generated this result [...] ? Lab Interpretation Abnormal (test code = 84462-4) [facility] (NA, K, CL, CO2, GLUCOSE, BUN, CREATININE, CA)2020-01-17 11:16:00 Test Item Value Reference Range Interpretation Comments NA (test code = 136 mmol/L 135-145 4721409678) K (test code = 3.3 mmol/L 3.5-5 L 4187863775) CL (test code = 101 mmol/L 98-108 4144883471) CO2 TOTAL (test code = 26 mmol/L 23-31 9840978630) AGAP (test code = 2-16 2731386186) BUN (test code = 19 mg/dL 7-23 0774472916) GLUCOSE (test code = 227 mg/dL 70-110 H 2246425156) CREATININE (test code = 1.33 mg/dL 0.6-1.25 H 4219400861) CALCIUM (test code = 9.1 mg/dL 8.6-10.6 2578848385) eGFR Calculation mL/min/1.73m2 (Non-) (test code = 4569451093) eGFR Calculation mL/min/1.73m2 () (test code = 2408983644) ALYSSA (test code = ALYSSA) Association of [...] tests). Lab Interpretation Abnormal (test code = 98405-1) [facility] HospitalaPTT2020-03-03 11:00:00 Test Item Value Reference Range [...] seconds. Lab Interpretation Abnormal (test code = 26548-2) [facility] HospitalCBC WITH [id number] 10:43:00 Test Item Value Reference Range Interpretation Comments WBC (test code = See_Comment [Automated message] 6690-2) The system [employer] generated this result transmitted ref erence range: 4.20 - 1 0.70 10*3/?L. The re ference range was not u sed to interpret this result as normal/abnor mal. RBC (test code = See_Comment [Automated message] 789-8) The system [employer] generated this result transmitted ref erence range: [...] RDW-SD (test code 41.5 fL 38.5-51.6 = 56295-7) RDW-CV (test code 12.8 % 12.1-15.4 = 788-0) PLT (test code = See_Comment [Automated message] 777-3) The system [employer] generated this result transmitted ref erence range: 150 - 32 8 10*3/?L. The re ference range was not u sed to interpret this result as normal/abnor mal. MPV (test code = 10.7 fL 9.8-13 19187-3) NRBC/100 WBC (test See_Comment [Automat ed message] code = 4164662426) The syste m which generated this result transmitted ref erence range: 0.0 - 10 .0 /100 WBCs. The refer ence range was not u sed to interpret this result as normal/abnor mal. NRBC x10^3 (test <0.01 See_Comment [Automated message] code = 9477508851) The syste m which generated this result transmitted ref erence range: 10*3/?L. The reference range was not used to interpr et this result as normal/abnormal . GRAN MAT (NEUT) % 56.1 % (test code = 770-8) IMM GRAN % (test 0.30 % code = 6603483165) LYMPH % (test code 29.5 % = 736-9) MONO % (test code 9.9 % = 5905-5) EOS % (test code = 3.3 % 713-8) BASO % (test code 0.9 % = 706-2) GRAN MAT 3.73 10*3/uL 1.99-6.95 x10^3(ANC) (test code = 6193029117) IMM GRAN x10^3 <0.03 0-0.06 (test code = 9979990938) LYMPH x10^3 (test 1.96 10*3/uL 1.09-3.23 code = 731-0) MONO x10^3 (test 0.66 10*3/uL 0.36-1.02 code = 742-7) EOS x10^3 (test 0.22 10*3/uL 0.06-0.53 code = 711-2) BASO x10^3 (test 0.06 10*3/uL 0.01-0.09 code = 704-7) [facility] GLUCOSE (AUTOMATED)2020-01-17 01:49:00 Test Item Value Reference Range Interpretation Comments POCT GLU (test code = 1266490922) 305 mg/dL 70-110 H Lab Interpretation (test code = Abnormal 77969-9) [facility] GLUCOSE (AUTOMATED)2020-01-17 00:01:00 Test Item Value Reference Range Interpretation Comments POCT GLU (test code = 9560233571) 271 mg/dL 70-110 H Lab Interpretation (test code = Abnormal 71801-2) [facility]aPTT2020-03-02 22:23:00 Test Item Value Reference Range [...] seconds. Lab Interpretation Abnormal (test code = 67850-4) [facility] HospitalTROPONIN [id number] 21:22:00 Test Item Value Reference Range Interpretation Comments TROPONIN I (test 0.061 ng/mL See_Comment H [Automated code = 8600751377) message] The system which generated this result [...] ? Lab Interpretation Abnormal (test code = 81221-5) [facility]PO[facility])2020-01-16 17:37:00 Test Item Value Reference Range Interpretation Comments POCT GLU (test code = 0642006946) 271 mg/dL 70-110 H Lab Interpretation (test code = Abnormal 92119-2) [facility]aPTT2020-03-02 12:47:00 Test Item Value Reference Range [...] seconds. Lab Interpretation Abnormal (test code = 64475-4) [facility] HospitalTROPONIN [id number] 12:35:00 Test Item Value Reference Range Interpretation Comments TROPONIN I (test 0.074 ng/mL See_Comment H [Automated code = 1319365956) message] The system which generated this result [...] ? Lab Interpretation Abnormal (test code = 77291-0) [facility] HospitalLIPID PANEL (23155)(TOTAL CHOLESTEROL, TRIGLYCERIDES, HDL)2020-01-16 12:23:00 Test Item Value Reference Range Interpretation Comments CHOL (test code = 95 mg/dL 120-200 L 8300683114) HDL (test code = 44 mg/dL >40 0491391466) HDLC RATIO (test code = See_Comment [Au tomated message] 7099888548) The system [employer] generated this result transmitted ref erence range: <=5.0. T he reference range was not used to int erpret this result as normal/abnormal . TRIG (test code = 89 mg/dL 30-170 9778039660) LDL CHOL (test code = 33 mg/dL See_Comment [Auto mated message] 91666-0) The system [employer] generated this result transmitted ref erence range: <=160. T he reference range was not used to int erpret this result as normal/abnormal . VLDL (test code = 18 mg/dL 5-60 3810950223) Lab Interpretation (test Abnormal code = 72258-6) [facility] HospitalGlycosylated Hemoglobin (A1C)2020-01-16 09:03:00 Test Item Value [...] Indicated Lab Interpretation Abnormal (test code = 32203-9) [facility] HospitalCritical [id number] 05:48:18NeCharanjit epps MD ? ? 01/15/2020 11:48 [...] review of old charts and examination of patientUnChildren[facility] PlanoProthrombin Time (PT) / [id number] 05:28:00 Test Item Value Reference Range Interpretation Comments PROTIME PATIENT (test See_Comment [Auto mated message] code = 5964-2) The system [employer] ich generated this result transmitted ref erence range: 12.0 - 1 4.7 Seconds. The re ference range was not u sed to interpret this result as normal/abnor mal. INR (test code = 6301-6) Nor mal INR <1.1; Warfarin Therap eutic range 2.0 to 3. 0 or 2.5 to 3.5, dep ending upon the indica tions. Lab Interpretation (test Normal code = 03933-7) [facility]aPTT2020-03-02 05:27:00 Test Item Value Reference Range [...] seconds. Lab Interpretation Normal (test code = 94548-2) [facility] HospitalTroponin [id number] 05:11:00 Test Item Value Reference Range Interpretation Comments TROPONIN I (test 0.075 ng/mL See_Comment H [Automated code = 9011128109) message] The system which generated this result [...] ? Lab Interpretation Abnormal (test code = 88305-3) [facility] HospitalN-TERMINAL [id number] 05:08:00 Test Item Value Reference Range Interpretation Comments NT-proBNP (test code 896 pg/mL See_Comment H [Autom ated = 9288771100) message] The system which generated this result transmitted reference range : <=450. The reference range was not used to interpret this result as normal/abnormal . ALYSSA (test code = ALYSSA) Biotin has been reported to cause a negative bias, interpret results relative to patient's use of biotin. Lab Interpretation Abnormal (test code = 46306-8) [facility] Metabolic Panel (NA, K, CL, CO2, GLUCOSE, BUN, CREATININE, CA)2020-01-16 04:59:00 Test Item Value Reference Range Interpretation Comments NA (test code = 136 mmol/L 135-145 6067244533) K (test code = 4.0 mmol/L 3.5-5 1129054514) CL (test code = 101 mmol/L 98-108 1996994542) CO2 TOTAL (test code = 27 mmol/L 23-31 3831779033) AGAP (test code = 2-16 0716069727) BUN (test code = 17 mg/dL 7-23 5937000401) GLUCOSE (test code = 445 mg/dL 70-110 H 5590190950) CREATININE (test code = 1.29 mg/dL 0.6-1.25 H [id number]) CALCIUM (test code = 8.8 mg/dL 8.6-10.6 8861573172) eGFR Calculation mL/min/1.73m2 (Non-) (test code = 0701958205) eGFR Calculation mL/min/1.73m2 () (test code = 7886293839) ALYSSA (test code = ALYSSA) Association of [...] tests). Lab Interpretation Abnormal (test code = 41099-9) [facility] (ALB, T.PRO, BILI T, BU/BC, ALT, AST, ALK PHOS)2020-01-16 04:59:00 Test Item Value Reference Range Interpretation Comments TOTAL BILI (test code = 3856389611) 1.3 mg/dL 0.1-1.1 H BILI UNCON (test code = 8375110076) 1.1 mg/dL 0.1-1.1 BILI CONJ (test code = 5448748302) 0.0 mg/dL 0-0.3 T PROTEIN (test code = 0733640004) 6.3 g/dL 6.3-8.2 ALBUMIN (test code = 2232152791) 3.9 g/dL 3.5-5 ALK PHOS (test code = 6934949961) 67 U/L 34-122 ALTv (test code = 1742-6) 15 U/L 5-50 AST(SGOT) (test code = 4095308148) 23 U/L 13-40 Lab Interpretation (test code = Abnormal 98768-4) [facility] 1 Nwcm5879-32-70 04:54:13Impression: Moderate cardiomegaly without acute pulmonary process. RL: [id number] AFC: [id number] Electronicallysigned by Esperanza Rosado MD, PhD at 01/15/2020 10:54 PMIndication: Chest pain Comparison: None available Findings: Single AP view of the chest. The cardiopericardial silhouette ismoderately enlarged.The lungs are clear bilaterally. The visualized bonythorax [...] place.IMPRESSIONImpression:Moderate cardiomegaly without acute pulmonary process.RL: 460AFC: [id number] signed by Esperanza Rosado MD, PhD at 01/15/2020 10:54 PMUn[facility] PlanoCBC WITH SWICDRGSOYQH9003-71-04 04:51:00 Test Item Value Reference Range Interpretation [...] RDW-SD (test code = 40.7 fL 38.5-51.6 42178-7) RDW-CV (test code = 12.8 % 12.1-15.4 788-0) PLT (test code = See_Comment L [Automated 777-3) message] The sy stem which generated this result transmitted reference range : 150 - 328 10*3/ ?L. The reference r corey was not used to interpret this result as normal/abnormal . MPV (test code = 10.6 fL 9.8-13 54714-8) IPF % (test code = 2.8 % 1.2-10.7 Platelet count 1677194817) measured by fluorescence method. NRBC/100 WBC (test See_Comment [Automat ed code = 8130806777) message] The system which generated this result transmitted reference range : 0.0 - 10.0 /100 WBCs. The refer ence range was not u sed to interpret th is result as normal/abnormal . NRBC x10^3 (test code <0.01 See_Comment [Auto mated = 7661765492) message] The s ystem which generated this result transmitted reference range : 10*3/?L. The reference range was not used to interpret this result as normal/abnormal . GRAN MAT (NEUT) % 56.0 % (test code = 770-8) IMM GRAN % (test code 0.20 % = 4501956673) LYMPH % (test code = 30.5 % 736-9) MONO % (test code = 9.6 % 5905-5) EOS % (test code = 2.8 % 713-8) BASO % (test code = 0.9 % 706-2) GRAN MAT x10^3(ANC) 2.98 10*3/uL 1.99-6.95 (test code = 5917811577) IMM GRAN x10^3 (test <0.03 0-0.06 code = 0549994732) LYMPH x10^3 (test code 1.62 10*3/uL 1.09-3.23 = 731-0) MONO x10^3 (test code 0.51 10*3/uL 0.36-1.02 = 742-7) EOS x10^3 (test code = 0.15 10*3/uL 0.06-0.53 711-2) BASO x10^3 (test code 0.05 10*3/uL 0.01-0.09 = 704-7) Lab Interpretation Abnormal (test code = 94887-5) [facility] 10:30[facility]00 Test Item Value Reference Range Interpretation Comments eGFR (test code = eGFR) 37 [facility] HospitalVtdsswdRKIRIQFBS8831-81-75 10:30:00 Test Item Value Reference Range Interpretation Comments Sodium Lvl (test code = Sodium Lvl) 144 135-145 N [facility] CenterBhpzyynZSWATLCHT1233-76-06 10:30:00 Test Item Value Reference Range Interpretation Comments Potassium Lvl (test code = Potassium 3.9 3.5-5.1 N Lvl) [facility] CenterDhinyhqCJPPXPCWO7153-83-07 10:30:00 Test Item Value Reference Range Interpretation Comments Chloride Lvl (test code = Chloride Lvl) 104 95-109 N [facility] CenterCupueysIFGKPGQUX1240-97-98 10:30:00 Test Item Value Reference Range Interpretation Comments CO2 (test code = CO2) 26 24-32 N [facility] CenterDmlfetdJTHWSYDKP4351-70-52 10:30:00 Test Item Value Reference Range Interpretation Comments Calcium Lvl (test code = Calcium Lvl) 8.6 8.5-10.5 N [facility] CenterGnbblfuXRRHPACMU5040-56-31 10:30:00 Test Item Value Reference Range Interpretation Comments Glucose Lvl (test code = Glucose Lvl) 160 70-99 H [facility] CenterKooeqjzOWQHYKFRC1357-47-11 10:30:00 Test Item Value Reference Range Interpretation Comments BUN (test code = BUN) 23 7-22 H [facility] CenterIblwjixEANDJJNZY8225-32-62 10:30:00 Test Item Value Reference Range Interpretation Comments Creatinine Lvl (test code = Creatinine 1.8 0.5-1.4 H Lvl) [facility] CenterBdcnfuwKFKWRABMX0316-67-11 10:30:00 Test Item Value Reference Range Interpretation Comments AGAP (test code = AGAP) 17.9 10.0-20.0 N [facility] CenterNzpcslvMZDPWCRJID6029-58-99 10:30:00 Test Item Value Reference Range Interpretation Comments MPV (test code = MPV) 8.3 7.4-10.4 N [facility] CenterOcajzvlAPGBOFOWGV3610-53-16 10:30:00 Test Item Value Reference Range Interpretation Comments RDW (test code = RDW) 13.6 11.5-14.5 N [facility] CenterWctybzzNAACAQGYNO1072-92-52 10:30:00 Test Item Value Reference Range Interpretation Comments MCHC (test code = MCHC) 34.5 32.0-36.0 N [facility] CenterEwkamswPCFLFEKTMV2922-77-51 10:30:00 Test Item Value Reference Range Interpretation Comments Platelet (test code = Platelet) 155 133-450 N [facility] CenterQjxmrujUVJJQEXSQL2015-21-21 10:30:00 Test Item Value Reference Range Interpretation Comments MCH (test code = MCH) 33.0 pg 27.0-31.0 H [facility] CenterMorwxgyONODWXYYJV8580-53-00 10:30:00 Test Item Value Reference Range Interpretation Comments MCV (test code = MCV) 95.8 80.0-94.0 H [facility] CenterTaildbuVYURZODQBZ8324-79-54 10:30:00 Test Item Value Reference Range Interpretation Comments WBC (test code = WBC) 4.6 3.7-10.4 N [facility] CenterRlihgqzDIPXCYTQPG2684-07-85 10:30:00 Test Item Value Reference Range Interpretation Comments RBC (test code = RBC) 3.81 4.70-6.10 L [facility] CenterIjlcubmSQKRMDBEBZ5414-03-59 10:30:00 Test Item Value Reference Range Interpretation Comments Hgb (test code = Hgb) 12.6 14.0-18.0 L [facility] CenterDjpmdncJHUNNYDKGY5755-05-71 10:30:00 Test Item Value Reference Range Interpretation Comments Hct (test code = Hct) 36.5 42.0-54.0 L [facility] CenterUylnjciXHGVEVGACP4142-25-60 10:30:00 Test Item Value Reference Range Interpretation Comments Lymphocytes # (test code = Lymphocytes 1.1 1.0-5.5 N #) [facility] CenterDfibqkwCBMRKDCCJJ9860-63-64 10:30:00 Test Item Value Reference Range Interpretation Comments Monocytes # (test code 0.6 See_Comment N [Aut omated message] The = Monocytes #) system which generated this result tra nsmitted reference range : <=0.8. The reference r corey was not used to int erpret this result as normal/abnormal . [facility] CenterBkcjbznHNAMYQHTJK4268-88-62 10:30:00 Test Item Value Reference Range Interpretation Comments Eosinophils # (test code 0.3 See_Comment N [A utomated message] The = Eosinophils #) system whic h generated this result tra nsmitted reference range : <=0.5. The reference r corey was not used to int erpret this result as normal/abnormal . [facility] CenterRbeklzeCAJAFWSZUA1488-50-40 10:30:00 Test Item Value Reference Range Interpretation Comments Basophils # (test code 0.0 See_Comment N [Aut omated message] The = Basophils #) system which generated this result tra nsmitted reference range : <=0.2. The reference r corey was not used to int erpret this result as normal/abnormal . [facility] CenterQxqkfqbJTUYUGYCSA7056-47-68 10:30:00 Test Item Value Reference Range Interpretation Comments Segs (test code = Segs) 56.4 45.0-75.0 N [facility] CenterFjfbrxtXGRJRGGBJF2959-48-05 10:30:00 Test Item Value Reference Range Interpretation Comments Segs-Bands # (test code = Segs-Bands #) 2.6 1.5-8.1 N [facility] CenterVspitveORVPPDLPYU3851-92-45 10:30:00 Test Item Value Reference Range Interpretation Comments Lymphocytes (test code = Lymphocytes) 24.8 20.0-40.0 N [facility] CenterXdyddqoKEVTLRIRUD9635-73-84 10:30:00 Test Item Value Reference Range Interpretation Comments Monocytes (test code = Monocytes) 12.3 2.0-12.0 H [facility] CenterSbsdkjyLIGGWXXJEO2708-49-72 10:30:00 Test Item Value Reference Range Interpretation Comments Eosinophils (test code = 5.9 See_Comment H [A utomated message] The Eosinophils) system which ge nerated this result tra nsmitted reference range : <=4.0. The reference r corey was not used to int erpret this result as normal/abnormal . [facility] CenterZxmnvnvGAGKPRXRXK5588-71-93 10:30:00 Test Item Value Reference Range Interpretation Comments Basophils (test code = 0.6 See_Comment N [Aut omated message] The Basophils) system which ge nerated this result tra nsmitted reference range : <=1.0. The reference r corey was not used to int erpret this result as normal/abnormal . [facility] GLUCOSE LZBVLWP5841-24-24 22:11:00 Test Item Value Reference Range Interpretation Comments Gluc POC Lifscn (test code = Gluc POC 148 70-99 H Lifscn) [facility] GLUCOSE CSDAQVC6091-20-99 17:23:00 Test Item Value Reference Range Interpretation Comments Comment1 (test code = Comment1) Notify RN/MD [facility] GLUCOSE YAVJTCC3647-36-41 17:23:00 Test Item Value Reference Range Interpretation Comments Gluc POC Lifscn (test code = Gluc POC 119 70-99 H Lifscn) [facility] GLUCOSE DCAQBGB0585-17-47 09:52:00 Test Item Value Reference Range Interpretation Comments Comment1 (test code = Comment1) Notify RN/ [facility] GLUCOSE XEJWRFL1688-73-02 09:52:00 Test Item Value Reference Range Interpretation Comments Gluc POC Lifscn (test code = Gluc POC 140 70-99 H Lifscn) [facility] GLUCOSE IRYVIJD3305-76-63 20:02:00 Test Item Value Reference Range Interpretation Comments Comment1 (test code = Comment1) Notify RN/ [facility] CenterShltowjYEVHJURCV5781-32-89 10:40:00 Test Item Value Reference Range Interpretation Comments AGAP (test code = AGAP) 18.8 10.0-20.0 N [facility] CenterLztcelcALJXNCERK6006-12-73 10:40:00 Test Item Value Reference Range Interpretation Comments eGFR (test code = eGFR) 49 [facility] CenterHrbmafwNFYGJMDCR7198-64-62 10:40:00 Test Item Value Reference Range Interpretation Comments Creatinine Lvl (test code = Creatinine 1.4 0.5-1.4 N Lvl) [facility] CenterDbvmtnvCUPHAOORQ6714-70-98 10:40:00 Test Item Value Reference Range Interpretation Comments Glucose Lvl (test code = Glucose Lvl) 143 70-99 H [facility] CenterAlpghghBAULXOCYH1444-07-52 10:40:00 Test Item Value Reference Range Interpretation Comments BUN (test code = BUN) 7 7-22 N [facility] CenterFiifbyiGADPWHNRZ4059-03-65 10:40:00 Test Item Value Reference Range Interpretation Comments CO2 (test code = CO2) 27 24-32 N [facility] CenterWjfyunbSEEMTWLNS4274-78-75 10:40:00 Test Item Value Reference Range Interpretation Comments Calcium Lvl (test code = Calcium Lvl) 8.3 8.5-10.5 L [facility] CenterSypwbjdHDNBTSUBW3250-25-30 10:40:00 Test Item Value Reference Range Interpretation Comments Sodium Lvl (test code = Sodium Lvl) 144 135-145 N [facility] CenterUkvevlkVKNSAUQBB2982-25-42 10:40:00 Test Item Value Reference Range Interpretation Comments Potassium Lvl (test code = Potassium 3.8 3.5-5.1 N Lvl) [facility] CenterKqssuwfGVKNUIJSF3957-07-91 10:40:00 Test Item Value Reference Range Interpretation Comments Chloride Lvl (test code = Chloride Lvl) 102 95-109 N [facility] CenterTbglfleRISASDOWXN8713-60-96 10:40:00 Test Item Value Reference Range Interpretation Comments Lymphocytes # (test code = Lymphocytes 0.7 1.0-5.5 L #) [facility] CenterNqzoksuXKMCRVUMES5431-38-64 10:40:00 Test Item Value Reference Range Interpretation Comments Monocytes # (test code 0.5 See_Comment N [Aut omated message] The = Monocytes #) system which generated this result tra nsmitted reference range : <=0.8. The reference r corey was not used to int erpret this result as normal/abnormal . [facility] CenterJcdyygcYZXVPQEADU6259-48-72 10:40:00 Test Item Value Reference Range Interpretation Comments Monocytes (test code = Monocytes) 9.0 2.0-12.0 N [facility] CenterVyzvqcgBOWRGQDCWN9984-88-82 10:40:00 Test Item Value Reference Range Interpretation Comments Eosinophils (test code = 2.3 See_Comment N [A utomated message] The Eosinophils) system which ge nerated this result tra nsmitted reference range : <=4.0. The reference r corey was not used to int erpret this result as normal/abnormal . [facility] CenterEhjsadhUWGUAWRERW6871-02-97 10:40:00 Test Item Value Reference Range Interpretation Comments Eosinophils # (test code 0.1 See_Comment N [A utomated message] The = Eosinophils #) system whic h generated this result tra nsmitted reference range : <=0.5. The reference r corey was not used to int erpret this result as normal/abnormal . [facility] CenterBljepiwHKABPQUOWG8020-41-40 10:40:00 Test Item Value Reference Range Interpretation Comments Basophils # (test code 0.0 See_Comment N [Aut omated message] The = Basophils #) system which generated this result tra nsmitted reference range : <=0.2. The reference r corey was not used to int erpret this result as normal/abnormal . [facility] CenterRyqufglLLOXBAGZKU3506-97-57 10:40:00 Test Item Value Reference Range Interpretation Comments Segs (test code = Segs) 76.0 45.0-75.0 H [facility] CenterRyoojdfRSGQEFWLRS9923-21-43 10:40:00 Test Item Value Reference Range Interpretation Comments Lymphocytes (test code = Lymphocytes) 12.2 20.0-40.0 L [facility] CenterRnhafpoEXFBQPCKOB5751-41-54 10:40:00 Test Item Value Reference Range Interpretation Comments Segs-Bands # (test code = Segs-Bands #) 4.6 1.5-8.1 N [facility] CenterNlawozgCDGWILDVLB6492-33-96 10:40:00 Test Item Value Reference Range Interpretation Comments Basophils (test code = 0.5 See_Comment N [Aut omated message] The Basophils) system which ge nerated this result tra nsmitted reference range : <=1.0. The reference r corey was not used to int erpret this result as normal/abnormal . [facility] CenterCbbjvjbDMGBMUXFAT5324-90-35 10:40:00 Test Item Value Reference Range Interpretation Comments RDW (test code = RDW) 13.1 11.5-14.5 N [facility] CenterVpsvznzQBQHZIIRHF7236-22-49 10:40:00 Test Item Value Reference Range Interpretation Comments MPV (test code = MPV) 8.3 7.4-10.4 N [facility] CenterBuxvsagRKPZEXTQFU1741-10-60 10:40:00 Test Item Value Reference Range Interpretation Comments WBC (test code = WBC) 6.0 3.7-10.4 N [facility] CenterAwxnuxeWXZHNUSIJB6198-92-84 10:40:00 Test Item Value Reference Range Interpretation Comments Hct (test code = Hct) 35.6 42.0-54.0 L [facility] CenterQefehhpTWJIYOFBGV8138-49-98 10:40:00 Test Item Value Reference Range Interpretation Comments RBC (test code = RBC) 3.68 4.70-6.10 L [facility] CenterIrratsfAPNHGEXSAX4499-44-57 10:40:00 Test Item Value Reference Range Interpretation Comments Hgb (test code = Hgb) 12.3 14.0-18.0 L [facility] CenterLnxtiqcWDGVUEDCWY9004-08-09 10:40:00 Test Item Value Reference Range Interpretation Comments MCV (test code = MCV) 96.8 80.0-94.0 H [facility] CenterAttbogyTBMOQHDUZA3620-98-98 10:40:00 Test Item Value Reference Range Interpretation Comments MCH (test code = MCH) 33.5 pg 27.0-31.0 H [facility] CenterDkesalqUSIWTLUKEQ2769-13-60 10:40:00 Test Item Value Reference Range Interpretation Comments MCHC (test code = MCHC) 34.6 32.0-36.0 N [facility] CenterUouvhkoUGUNDCUXTA2677-64-64 10:40:00 Test Item Value Reference Range Interpretation Comments Platelet (test code = Platelet) 108 133-450 L [facility] CenterRsdxfhiVHHKHCAWA3127-93-05 14:35:00 Test Item Value Reference Range Interpretation Comments AGAP (test code = AGAP) 15.1 10.0-20.0 N [facility] CenterIdsjgwwJCJJXAAHL9652-39-28 14:35:00 Test Item Value Reference Range Interpretation Comments eGFR (test code = eGFR) 42 [facility] CenterNlsqwkiKUJPHTSZR9863-45-58 14:35:00 Test Item Value Reference Range Interpretation Comments Calcium Lvl (test code = Calcium Lvl) 8.0 8.5-10.5 L [facility] CenterAfschamBXSBCRIAW2448-02-37 14:35:00 Test Item Value Reference Range Interpretation Comments Chloride Lvl (test code = Chloride Lvl) 106 95-109 N [facility] CenterIjkjqnqFOIONAYUZ8321-36-45 14:35:00 Test Item Value Reference Range Interpretation Comments CO2 (test code = CO2) 27 24-32 N [facility] CenterReodwqbGGJTPDGNU8221-22-61 14:35:00 Test Item Value Reference Range Interpretation Comments Glucose Lvl (test code = Glucose Lvl) 140 70-99 H [facility] CenterHeihkvkWMHZPIZDD2299-13-39 14:35:00 Test Item Value Reference Range Interpretation Comments BUN (test code = BUN) 10 7-22 N [facility] CenterSahajhyNKWWMLRXX9275-15-66 14:35:00 Test Item Value Reference Range Interpretation Comments Potassium Lvl (test code = Potassium 4.1 3.5-5.1 N Lvl) [facility] CenterIktouzpNXVMOLDAA0262-48-38 14:35:00 Test Item Value Reference Range Interpretation Comments Sodium Lvl (test code = Sodium Lvl) 144 135-145 N [facility] CenterNaknztnSDUKSZFAW8516-12-69 14:35:00 Test Item Value Reference Range Interpretation Comments Creatinine Lvl (test code = Creatinine 1.6 0.5-1.4 H Lvl) [facility] CenterDgrtjtpFTNRZHFIDJ6810-80-28 14:35:00 Test Item Value Reference Range Interpretation Comments Basophils # (test code 0.1 See_Comment N [Aut omated message] The = Basophils #) system which generated this result tra nsmitted reference range : <=0.2. The reference r corey was not used to int erpret this result as normal/abnormal . [facility] CenterQrphpxgGSBISFZDFM1867-86-16 14:35:00 Test Item Value Reference Range Interpretation Comments Segs (test code = Segs) 73.2 45.0-75.0 N [facility] CenterSymnjzqXGLWHTGMNZ8826-39-30 14:35:00 Test Item Value Reference Range Interpretation Comments Eosinophils (test code = 2.4 See_Comment N [A utomated message] The Eosinophils) system which ge nerated this result tra nsmitted reference range : <=4.0. The reference r corey was not used to int erpret this result as normal/abnormal . [facility] CenterXawxhniNCZHZISAPW2637-50-10 14:35:00 Test Item Value Reference Range Interpretation Comments Lymphocytes (test code = Lymphocytes) 13.7 20.0-40.0 L [facility] CenterBhukgyeVLJOYBCPZF9110-10-94 14:35:00 Test Item Value Reference Range Interpretation Comments Monocytes (test code = Monocytes) 9.8 2.0-12.0 N [facility] CenterXelkediDLTAJWZHVX3859-46-14 14:35:00 Test Item Value Reference Range Interpretation Comments Eosinophils # (test code 0.1 See_Comment N [A utomated message] The = Eosinophils #) system whic h generated this result tra nsmitted reference range : <=0.5. The reference r corey was not used to int erpret this result as normal/abnormal . [facility] CenterBjhndymLPHDOMFIRX6654-92-60 14:35:00 Test Item Value Reference Range Interpretation Comments Monocytes # (test code 0.6 See_Comment N [Aut omated message] The = Monocytes #) system which generated this result tra nsmitted reference range : <=0.8. The reference r corey was not used to int erpret this result as normal/abnormal . [facility] CenterQrjrfchLEVVFGFAAY7728-91-38 14:35:00 Test Item Value Reference Range Interpretation Comments Lymphocytes # (test code = Lymphocytes 0.8 1.0-5.5 L #) [facility] CenterBgipkbgORVCUIBZBB5572-69-41 14:35:00 Test Item Value Reference Range Interpretation Comments Segs-Bands # (test code = Segs-Bands #) 4.2 1.5-8.1 N [facility] CenterJairtyeIOKQDLBUMV6665-56-45 14:35:00 Test Item Value Reference Range Interpretation Comments Basophils (test code = 0.9 See_Comment N [Aut omated message] The Basophils) system which ge nerated this result tra nsmitted reference range : <=1.0. The reference r corey was not used to int erpret this result as normal/abnormal . [facility] CenterLcjlcjwFLVXQOEKHE7129-44-27 14:35:00 Test Item Value Reference Range Interpretation Comments Platelet (test code = Platelet) 116 133-450 L [facility] CenterLcluehkSDBNHGJGVG8507-61-11 14:35:00 Test Item Value Reference Range Interpretation Comments RDW (test code = RDW) 14.2 11.5-14.5 N [facility] CenterAoxqhfmCCONKPWTRW1283-56-68 14:35:00 Test Item Value Reference Range Interpretation Comments MPV (test code = MPV) 7.7 7.4-10.4 N [facility] CenterHpvsbolVUOOTBWWZR3229-45-68 14:35:00 Test Item Value Reference Range Interpretation Comments Hct (test code = Hct) 33.5 42.0-54.0 L [facility] CenterNajvekeACZKHRXTIW7368-26-38 14:35:00 Test Item Value Reference Range Interpretation Comments MCV (test code = MCV) 95.6 80.0-94.0 H [facility] CenterXuflfjpHTICDSBOFP6984-16-94 14:35:00 Test Item Value Reference Range Interpretation Comments MCHC (test code = MCHC) 34.3 32.0-36.0 N [facility] CenterYnatvskXEWBJNULLC8112-54-12 14:35:00 Test Item Value Reference Range Interpretation Comments MCH (test code = MCH) 32.8 pg 27.0-31.0 H [facility] CenterIkfcmzbFMOQMJBGGB1256-49-43 14:35:00 Test Item Value Reference Range Interpretation Comments Hgb (test code = Hgb) 11.5 14.0-18.0 L [facility] CenterJqbxgfgENIOYXLNOD6666-29-59 14:35:00 Test Item Value Reference Range Interpretation Comments RBC (test code = RBC) 3.51 4.70-6.10 L [facility] CenterXvsfrjdDQCSVMIPTB5353-29-60 14:35:00 Test Item Value Reference Range Interpretation Comments WBC (test code = WBC) 5.8 3.7-10.4 N [facility] JobHoreca FCYCDGC6905-07-21 10:50:00 Test Item Value Reference Range Interpretation Comments ABO/Rh (test code = ABO/Rh) A POS [facility] BZWUBFH0617-30-07 10:50:00 Test Item Value Reference Range Interpretation Comments Antibody Scrn (test Negative (03/03/2013 N code = Antibody Scrn) 05:50:00) [facility] GLUCOSE JIJYULY4426-59-47 14:49:00 Test Item Value Reference Range Interpretation Comments Gluc POC Lifscn (test code = Gluc POC 126 70-99 H Lifscn) [facility]
--- NOTE | 2022-07-10 14:20 | ER ---
Nurse's Notes [facility] Name: Demetrius Sarmiento Age: 82 yrs Sex: Male : 1940 Arrival Date: 07/10/2022 Time: 12:54 Bed 3 Private MD: Diagnosis: Lumbago with sciatica, left side Presentation: 07/10 12:54 Chief complaint: Patient states: Back pain radiating down left leg. EMS toned out to pt ld1 home. EMS reported pt recently leaving nursing facility - left AMA. Coronavirus screen: At this time, the client does not indicate any symptoms associated with coronavirus-19. Ebola Screen: No symptoms or risks identified at this time. Initial Sepsis Screen: Does the patient meet any 2 criteria? No. Patient's initial sepsis screen is negative. Does the patient have a suspected source of infection? No. Patient's initial sepsis screen is negative. Risk Assessment: Do you want to hurt yourself or someone else? Patient reports no desire to harm self or others. Onset of symptoms was July 10, 2022. 12:54 Method Of Arrival: [facility] ld1 12:54 Acuity: LANCE 3 ld1 Triage Assessment: 13:04 General: Appears in no apparent distress. uncomfortable, Behavior is calm, cooperative, ld1 fussy. Pain: Complains of pain in back Pain radiates to left leg Pain currently is 8 out of 10 on a pain scale. Quality of pain is described as throbbing. EENT: No signs and/or symptoms were reported regarding the EENT system. Neuro: Level of Consciousness is awake, alert, obeys commands, Oriented to person, place, time, situation, Appropriate for age. Cardiovascular: Capillary refill < 3 seconds Patient's skin is warm and dry. Respiratory: Airway is patent Respiratory effort is even, unlabored. GI: Abdomen is flat, non-distended. : No signs and/or symptoms were reported regarding the genitourinary system. Derm: Skin is thin, Pressure ulcer to sacrum. Stage 2. Musculoskeletal: Circulation, motion, and sensation intact. Historical: - Allergies: 13:04 No Known Allergies; ld1 - PMHx: 13:04 Alzheimer's disease; CAD; diabetes mellitus; Hypercholesterolemia; Hypertensive ld1 disorder; sciatica; [place]; - PSHx: 13:04 Nephrectomy; Nerve stimulator; ld1 - Immunization history:: Adult Immunizations up to date, Client reports having NOT received the Covid vaccine. - Social history:: Smoking status: Patient denies any tobacco usage or history of. Patient/guardian denies using alcohol. Screenin:08 Abuse screen: Denies threats or abuse. Denies injuries from another. Nutritional ld1 screening: No deficits noted. Tuberculosis screening: No symptoms or risk factors identified. Fall Risk None identified. Assessment: 13:08 Reassessment: See triage assessment. ld1 14:34 Reassessment: Pt refusing treatment, demanding to go home. Notified ERP at this time. ld1 Vital Signs: 12:54 Temp 98.2; ld1 13:10 Pulse 86; Resp 18; Temp 98.2(O); Pulse Ox 100% on R/A; Weight 47.63 kg; Height 5 ft. 8 ld1 in. (172.72 cm); Pain 6/10; 13:10 Body Mass Index 15.97 (47.63 kg, 172.72 cm) ld1 ED Course: 12:54 Patient arrived in ED. ld1 13:04 Triage completed. ld1 13:04 Arm band placed on right wrist. ld1 13:08 Patient has correct armband on for positive identification. Placed in gown. Bed in low ld1 position. Call light in reach. Side rails up X2. Client placed on continuous cardiac and pulse oximetry monitoring. NIBP monitoring applied. Cleaned of incontinence. 13:08 No provider procedures requiring assistance completed. ld1 13:17 Charu Llanes, HERBIE is Primary Nurse. eh3 13:37 Robert Clements DO is Attending Physician. ms3 13:51 Nupur Romano FNP-C is [facility]. ms3 14:35 Patient did not have IV access during this emergency room visit. ld1 Administered Medications: 14:34 Not Given (Patient Refused): Valium (diazepam) 10 mg PO once ld1 Medication: 13:08 VIS not applicable for this client. ld1 Outcome: 14:18 Discharge ordered by . snw 14:34 Discharged to home via wheelchair. ld1 14:34 Condition: stable 14:34 Discharge instructions given to patient, Instructed on discharge instructions. 14:35 Patient left the ED. ld1 Signatures: Nupur Romano FNP-C PAYROLL DIRECTOR-Csnw Robert Clements DO DO ms3 Danica Mckeon, RN RN ld1 Charu Llanes RN RN eh3
--- NOTE | 2022-07-10 14:20 | EDPHYS ---
Physician Documentation [facility] Name: Demetrius Sarmiento Age: 82 yrs Sex: Male : 1940 Arrival Date: 07/10/2022 Time: 12:54 Bed 3 Private MD: ED Physician Robert Clements HPI: 07/10 14:27 This 82 yrs old Male presents to ER via EMS with complaints of Back Pain. snw 14:27 The patient presents with pain that is chronic. The symptoms are located in the low snw back. Onset: The symptoms/episode began/occurred 1 year(s) ago, and became persistent. The pain radiates to the left leg. Associated signs and symptoms: The patient has no apparent associated signs or symptoms. The problem was sustained pt with chronic sciatic pain to left. Modifying factors: The patient symptoms are alleviated by nothing, the patient symptoms are aggravated by nothing. Severity of symptoms: At their worst the symptoms were moderate, intermittent, denies pain presently. The patient has experienced similar episodes in the past, chronically. The patient has been recently seen at the [facility] Emergency Department, this week. Historical: - Allergies: 13:04 No Known Allergies; ld1 - PMHx: 13:04 Alzheimer's disease; CAD; diabetes mellitus; Hypercholesterolemia; Hypertensive ld1 disorder; sciatica; [place]; - PSHx: 13:04 Nephrectomy; Nerve stimulator; ld1 - Immunization history:: Adult Immunizations up to date, Client reports having NOT received the Covid vaccine. - Social history:: Smoking status: Patient denies any tobacco usage or history of. Patient/guardian denies using alcohol. ROS: 14:24 Constitutional: Negative for fever, chills, and weight loss, Eyes: Negative for injury, snw pain, redness, and discharge, ENT: Negative for injury, pain, and discharge, Neck: Negative for injury, pain, and swelling, Cardiovascular: Negative for chest pain, palpitations, and edema, Respiratory: Negative for shortness of breath, cough, wheezing, and pleuritic chest pain, Abdomen/GI: Negative for abdominal pain, nausea, vomiting, diarrhea, and constipation, Back: Negative for injury and pain, : Negative for injury, bleeding, discharge, and swelling, Skin: Negative for injury, rash, and discoloration, Neuro: Negative for headache, weakness, numbness, tingling, and seizure, Psych: Negative for depression, anxiety, suicide ideation, homicidal ideation, and hallucinations. 14:24 MS/extremity: Positive for intermittent left leg pain. Exam: 14:19 Head/Face: Normocephalic, atraumatic. snw 14:19 Chest/axilla: Normal chest wall appearance and motion. Nontender with no deformity. No lesions are appreciated. Cardiovascular: Regular rate and rhythm with a normal S1 and S2. No gallops, murmurs, or rubs. Normal PMI, no JVD. No pulse deficits. Respiratory: Lungs have equal breath sounds bilaterally, clear to auscultation and percussion. No rales, rhonchi or wheezes noted. No increased work of breathing, no retractions or nasal flaring. Abdomen/GI: Soft, non-tender, with normal bowel sounds. No distension or tympany. No guarding or rebound. No evidence of tenderness throughout. Back: No spinal tenderness. No costovertebral tenderness. Full range of motion. Skin: Warm, dry with normal turgor. Normal color with no rashes, no lesions, and no evidence of cellulitis. MS/ Extremity: Pulses equal, no cyanosis. Neurovascular intact. Full, normal range of motion. Neuro: Awake and alert, GCS 15, oriented to person, place, time, and situation. Cranial nerves II-XII grossly intact. Motor strength 5/5 in all extremities. Sensory grossly intact. Cerebellar exam normal. Normal gait. 14:19 Constitutional: The patient appears alert, awake, frail, pt moaning but denies current pain. States his left leg intermittently causes pain 14:19 Eyes: Conjunctiva: pale, bilaterally. 14:19 ENT: Dental exam: dry mucous membranes. pt left am[place] from [place], does not want placement Lives at home. 14:19 Neuro: Orientation: to person, place, situation, Mentation: able to follow commands, pt moans and makes a lot of noise as if in pain but denies pain, states pain has resolved and wishes to go home, Motor: is normal, Sensation: is normal, Gait: not tested. Vital Signs: 12:54 Temp 98.2; ld1 13:10 Pulse 86; Resp 18; Temp 98.2(O); Pulse Ox 100% on R/A; Weight 47.63 kg; Height 5 ft. 8 ld1 in. (172.72 cm); Pain 6/10; 13:10 Body Mass Index 15.97 (47.63 kg, 172.72 cm) ld1 MDM: 13:37 Patient medically screened. ms3 14:17 Data reviewed: vital signs, nurses notes, EMS record, old medical records, Pt was ruled snw negative for an aortic dissection or aneurysm on 01/21/22. Data interpreted: Pulse oximetry: on room air is 100 %. Interpretation: normal. Counseling: I had a detailed discussion with the patient and/or guardian regarding: the historical points, exam findings, and any diagnostic results supporting the discharge/admit diagnosis, the need for outpatient follow up, to return to the emergency department if symptoms worsen or persist or if there are any questions or concerns that arise at home. Administered Medications: 14:34 Not Given (Patient Refused): Valium (diazepam) 10 mg PO once ld1 Disposition: 07/11 11:01 Co-signature as Attending Physician, Robert Clements DO I agree with the assessment and ms3 plan of care. Attestation: The patient's history, exam findings, diagnostics, and a summary of any interventions or procedures was reviewed in detail with Nupur MEDINA. Disposition Summary: 07/10/22 14:18 Discharge Ordered Location: Home snw Condition: Stable snw Diagnosis - Lumbago with sciatica, left side snw Followup: snw - With: Emergency Department - When: As needed - Reason: Worsening of condition Followup: snw - With: Private Physician - When: 1 - 2 days - Reason: Recheck today's complaints, Continuance of care, Re-evaluation by your physician Discharge Instructions: - Discharge Summary Sheet snw - Chronic Back Pain snw - Sciatica snw Forms: - Medication Reconciliation Form snw - Thank You Letter snw - Antibiotic Education snw - Prescription Opioid Use snw Signatures: Nupur Romano FNP-C FNP-CsnRobert Manrique DO DO ms3 Danica Mckeon, RN RN ld1
[2022-07-10 15:15] VITALS: TEMP 98.2
[2022-07-10 15:24] VITALS: O2SAT 100
== END 2022-07-10 14:35 | disposition home or self-care (01) ==
LOC: ER 12:49
DX: M54.42 Lumbago with sciatica, left side (principal); I10 Essential (primary) hypertension; G30.9 Alzheimer's disease, unspecified; F02.80 Dementia in other diseases classified elsewhere, unspecified severity, without behavioral disturbance, psychotic disturbance, mood disturbance, and anxiety
CPT/HCPCS: 99283

== ENCOUNTER 2022-07-15 21:55 | Emergency (ER) | payer OTHER ==
--- OUTSIDE RECORDS SUMMARY | 2022-07-15 22:28 | XMS REPORT | Continuity of Care Document ---
:1940 Author Organization [facility] t Address [address] [place] [address] Care Team Providers Name Role Phone Jono Costello MD Primary Care Physician Jim Baldwin Attending Clinician Unavailable Anneliese Batista Attending Clinician Unavailable SURAJ GUERRERO Attending Clinician Unavailable Suraj Vargas Attending Clinician Supa Maria RN Attending Clinician Unavailable EVE RAE Attending Clinician Unavailable Ric Childers DO Attending Clinician Eve Rae DO Attending Clinician Isatu Silva RN Attending Clinician Unavailable PERFECTO GARNICA Attending Clinician Unavailable PERFECTO GARNICA Attending Clinician Unavailable Davis Fam MD Attending Clinician Daisha Wayne MD Attending Clinician Mara Lama DO Attending Clinician Sonny Garcia DO Attending Clinician LUZ ANDREWS Attending Clinician Unavailable Luz Medina S Attending Clinician BRODIE RIVERA Attending Clinician Unavailable Brodie Rivera Attending Clinician ANGELIKA AGUILAR Attending Clinician Unavailable Angelika Aguilar DO Attending Clinician Jono Costello MD Attending Clinician Jayson Aguilar MD Attending Clinician MD JAYSON AGUILAR Attending Clinician Unavailable Doctor Unassigned, Ceylon Attending Clinician Unavailable AIDA SHAH Attending Clinician Unavailable Martha Drake MD Attending Clinician Aida Shah MD Attending Clinician Pcp, Patient Does Not Have A Attending Clinician [phone] Nallely Meeks Attending Clinician Charanjit Heck MD Attending Clinician Jamel Flores MD Attending Clinician Ariel STONER, Sherrell Attending Clinician Babar AUDIOLOGY DOCTOR, Sallie Attending Clinician JAMEL FLORES Attending Clinician Unavailable Kamryn GONG, Myles Herrera Attending Clinician MYLES HARRY Attending Clinician Unavailable Rajrenu_P Attending Clinician Unavailable Silvina STONER, Prema Bryant Attending Clinician Julio Cesar WOOTEN, Sarah Attending [...] Unavailable Daisha Wayne MD Admitting Clinician BRODIE RIVERA Admitting Clinician Unavailable Brodie Rivera Admitting Clinician ANGELIKA AGUILAR Admitting Clinician Unavailable JAYSON AGUILAR Admitting Clinician Unavailable MD JAYSON AGUILAR Admitting Clinician Unavailable AIDA SHAH Admitting Clinician Unavailable Aida Shah MD Admitting Clinician Jamel Flores MD Admitting Clinician JAMEL FLORES Admitting Clinician Unavailable MYLES HARRY Admitting Clinician Unavailable Maribell_Sabino Admitting Clinician Unavailable Sarah Harrell MD Admitting Clinician SARAH HARRELL Admitting Clinician Unavailable Lulu Harris MD Admitting Clinician LULU HARRIS Admitting Clinician Unavailable Payers Payer Name Policy Type Policy Number Effective Date Expiration Date Stacy torres [facility] [id number] 2020 00:00:00 [facility] [id number] 2019 DUAL COMPLETE HMO 00:00:00 [place] [id number] 2018 00:00:00 Problems Condition Condition Condition Status Onset Resolution Last Treating Co mments Source Name Details Category Date Date Treatment Clinician Date 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 7-21 it y of d severe d severe 00:00: [place] protein-ca protein-ca 00 Me dical sindhu sindhu Branch malnutriti malnutriti on on Dyslipidem Dyslipidem Disease Active U nivers ia ia 7-20 ity of 00:00: [place] [address] Medical Branch Elevated Elevated Disease Active Unive rs brain brain 7-20 ity of natriureti natriureti 00:[place] c peptide c peptide 00 Medi birdie (BNP) (BNP) Branch level level Closed Closed Disease Active Univers left hip left hip 7-19 ity of fracture, fracture, 00:00: Sylvia s initial initial 00 Medical encounter encounter Bran ch Elevated Elevated Disease Active Unive rs troponin troponin 7-19 ity of 00:00: [place] [address] Medical Branch Left hip Left hip Disease Active Unive rs pain pain 7-09 ity of 00:00: [place] [address] Medical Branch STEMI STEMI Diagnosis Active 2022-03-18 Mem oria Active 420 21:49:00 l 03/05/2022 00:00: Titus calderon [address] Unstable Unstable Disease Active 2019-0 Unive rs angina angina 5-07 ity of 00:00: [place] [address] Medical Branch ALBA (acute ALBA (acute Disease Active 2020-0 U nivers kidney kidney 4-21 ity of injury) injury) 00:00: [place] [address] Medical Branch Chest pain Chest pain Disease Active 2020-0 U nivers 4-21 ity of 00:00: [place] [address] Medical Branch Chest pain Chest pain Disease Active 2020-0 U 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 4-15 it y of 00:00: [place] [address] Medical Branch 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 3-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 00:00: [place] and and 00 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 Chest pain Chest pain Disease Active 2018-11 M ethodi 1-09 st 00:00: Hospita 00 l Left lower Left lower Disease Active 2018-11 U nivers lobe lobe 1-06 ity of pneumonia pneumonia [facility] PNA PNA Disease Active 2018-11 Univers (pneumonia (pneumonia 0-25 it y of ) ) 00:00: [place] 00 Medical Branch Acute on Acute on Disease Active 2018-11 Unive rs chronic chronic 0-25 ity of combined combined 00:00: [place] systolic systolic 00 Medica l and and Branch 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 Dyspnea Dyspnea Disease Active 2018-11 Univers 0-23 ity of 00:00: [place] 00 Medical Branch CHF CHF Disease Active Univers exacerbati exacerbati 2-17 it y of on on 00:00: [place] 00 Medical Branch Essential Essential Disease Active Uni vers hypertensi hypertensi 2-17 it y of on on 00:00: [place] 00 Medical Branch 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 00:00: [place] without without 00 Medical complicati complicati Br anch on, on, without without long-term long-term current current use of use of insulin insulin CHF CHF Disease Active Univers exacerbati exacerbati 2-17 it y of on on 00:00: [place] 00 Medical Branch Acute on Acute on [...] 1-27 it y of level level 00:00: [place] 00 Medical Branch DE LA CRUZ DE LA CRUZ Disease Active Univers (dyspnea (dyspnea 1-27 ity of on on 00:00: [place] exertion) exertion) 00 Medi birdie Branch Coronary Coronary Disease Active Unive rs artery artery 1-27 ity of disease disease 00:00: [place] involving involving 00 Medi birdie [place] Branch coronary 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[place] 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 00:00: [place] disease disease 00 Medical Branch Coronary Coronary Disease Active Unive rs artery artery 1-27 ity of disease disease 00:00: [place] involving involving 00 Medi birdie [place] Branch coronary 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[place] heart heart without without angina angina pectoris [...] onset Disease Active M ethodi 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 00:00: Hosp lily with with 00 l behavioral behavioral disturbanc disturbanc e e 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 00:00: Hospit a of lumbar of lumbar 00 l spine spine RENAL MASS RENAL Diagnosis Active 2013-03-04 Memoria MASS 02-04 10:52:00 l Active 00:00: [place] 02/04/2013 00 [facility] 569.3 569.3 Diagnosis Active 2013-02-03 Mem oria Active 01-24 09:00:00 l 01/24/2013 00:00: Titus calderon [address] Sleep Sleep Problem Resolve 2022-03-12 Manjit greg apnea apnea d 23:51:00 l (finding) (finding) Herm sana Resolved Problem 03/12/2022 [facility] Diabetes Diabetes Problem Active 2022-03-12 Memoria mellitus mellitus 23:51:00 l (disorder) (disorder) He rmann Active Problem 03/12/2022 [facility] Chronic Chronic Problem Active 2022-03-12 M emoria back pain back pain 23:51:00 l (disorder) (disorder) He rmann Active Problem 03/12/2022 [facility] Continuous Continuou Problem Active 2022-03-12 Memoria 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:51: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 He rmann (disorder) (disorder) Active Problem 03/12/2022 [facility] Datatype(D Datatype( Diagnosis Active 2013-02-03 Memoria G1.4)- DG1.4)- 09:00:00 l Active Titus [facility] Datatype(D Datatype( Diagnosis Active 2013-03-04 Memoria G1.4)- DG1.4)- 10:52:00 l Active [facility] DM DM Problem Resolve 2013-03-09 Manjit greg (diabetes (diabetes d 20:26:01 l mellitus) mellitus) Herm sana Resolved Problem 03/09/2013 [facility] Heart Heart Problem Resolve 2013-03-09 Manjit greg attack attack d 20:26:01 l Resolved [place] Problem 03/09/2013 [facility] HTN HTN Problem Resolve 2013-03-09 Manjit greg Resolved d 20:26:01 l Problem [place] 03/09/2013 [facility] Sleep Sleep Problem Resolve 2013-03-09 Manjit greg apnea apnea d 20:26:01 l Resolved [place] Problem 03/09/2013 [facility] Acute Acute Problem Resolve 2022-03-12 Mem oria myocardial myocardial d 23:51:00 l infarction infarction He rmann (disorder) (disorder) Resolved Problem 03/12/2022 [facility] Allergies, Adverse Reactions, Alerts Allergy Allergy Status Severity Reaction(s) Onset Inactive Treating Comm ents Source Name Type Date Date Clinician No Known DA Active U [facility] Allergie 1- Clear s 00:00: [place] 00 [facility] NO KNOWN Drug Active Univers ALLERGIE Class ity of [facility] [place] [facility] Family History Family Member Diagnosis Comments Start Date Stop Date Source Natural father Heart disease [facility] Natural father Seizures [facility] Natural mother Alzheimer's disease [facility] Natural mother Cancer [facility] Social History Social Habit Start Date Stop Date Quantity Comments Source History of tobacco User of Univer sity of use smokeless [facility] tobacco [place] Exposure to 2022-07-02 2022-07-12 Not sure [facility] SARS-CoV-2 (event) 00:00:00 00:32:00 [facility] Cigarette 2022-06-03 2022-06-03 University of pack-years 00:00:00 00:00:00 [facility] Alcohol intake 2021-12-25 2021-12-25 Current Scientologist 00:00:00 00:00:00 non-drinker of Hospital alcohol (finding) Cigarettes smoked 2018-10-27 2018-10-27 [facility] current (pack per 00:00:00 00:00:00 Hospita l day) - Reported Tobacco use and 2018-10-27 2018-10-27 Smokeless Scientologist exposure 00:00:00 00:00:00 tobacco non-user [facility] Sex Assigned At [birth year] Scientologist 00:00:00 00:00:00 Hospital Smoking Status Start Date Stop Date Source Ex-smoker 2018-10-27 00:00:00 2018-10-27 00:00:00 [facility] Medications Ordered Filled Start Stop Current Ordering Indication Dosage Frequency Signature Comments Components Source Medication Medication Date Date Medication? Clinician (SIG) Name Name acetaminoph 1000mg 1,000 mg, Univers en 07-12 Oral, ity of (TYLENOL) 06:45: 05:37 ONCE, 1 [place] tablet 00 :00 dose, On Medical 1,000 mg Sat [place] 07/12/22 at 0145, Routine aspirin 81 Yes 81mg Take 1 Unive rs mg EC 7-27 tablet by ity of tablet 00:00: mouth in [place] 00 the Medical morning. Branch metoprolol Yes 25mg Take 1 Unive rs succinate 7-27 tablet by ity o f XL 25 mg 24 00:00: mouth [place] hr tablet 00 the Medical morning. Branch spironolact 2022-0 Yes 12.5mg Take 0.5 Univers one 25 mg 7-27 tablets by ity of tablet 00:00: mouth in [place] 00 the Medical morning. Branch aspirin 81 2021-0 Yes 81mg Take 1 Unive rs mg EC 7-27 tablet by ity of tablet 00:00: mouth in [place] 00 the Medical morning. Branch metoprolol 2021-0 Yes 25mg Take 1 Unive rs succinate 7-27 tablet by ity o f XL 25 mg 24 00:00: mouth [place] hr tablet 00 the Medical morning. Branch spironolact 2021-0 Yes 12.5mg Take 0.5 Univers one 25 mg 7-27 tablets by ity of tablet 00:00: mouth in [place] 00 the Medical morning. Branch aspirin 81 2021-0 Yes 81mg Take 1 Unive rs mg EC 7-27 tablet by ity of tablet 00:00: mouth in [place] 00 the Medical morning. Branch metoprolol 2021-0 Yes 25mg Take 1 Unive rs succinate 7-27 tablet by ity o f XL 25 mg 24 00:00: mouth in [place] hr tablet 00 the Medical morning. Branch spironolact 0 Yes 12.5mg Take 0.5 Univers one 25 mg 7-27 tablets by ity of tablet 00:00: mouth in [place] 00 the Medical morning. Branch nitroglycer 2021- No .4mg Take 0.4 U nivers in 06-10 07-26 mg by ity of (NITRO-TIME 12:34: 00:00 mouth [place] ORAL) 19 :00 needed for Medical Other Branch (chest pain every 5 minutes x 3 doses). donepeziL 5 2021- No 5mg Take 5 mg Univers mg tablet 06-10- by mouth ity o f 12:34: 00:00 at [place] 19 :00 bedtime. Medical Branch atorvastati 2021-2021- No 40mg Take 40 mg Univers n 40 mg 06-10- by mouth ity of tablet 12:34: 00:00 at [place] 19 :00 bedtime. Medical Branch gabapentin 2021-0 2021- No 100mg Take 100 U nivers 300 mg 06-10-26 mg by ity of capsule 12:34: 00:00 mouth in [place] 19 :00 the Medical morning Branch and 100 mg at noon and 100 mg in the evening. empaglifloz 2022-0 2021- No 10mg Take 10 mg Univers in - 07- by mouth ity of (JARDIANCE) 12:34: 00:00 daily. [place] as 10 mg 19 :00 Medical Branch cyclobenzap 2021-0 Yes 10mg Take 1 Univ ers rine 10 mg 7-26 tablet by ity of tablet 00:00: mouth in [place] 00 the Medical morning Branch and 1 tablet at noon and 1 tablet in the evening. docusate 2021-0 Yes 100mg Take 1 Univer s 100 mg 7-26 capsule by ity of capsule 00:00: mouth in [place] 00 the Medical morning Branch and 1 capsule in the evening. atorvastati 2021-0 Yes 40mg Take 1 Univ ers n 40 mg 7-26 tablet by ity of tablet 00:00: mouth at [place] [address] bedtime. Medical Branch donepeziL 5 2021-0 Yes 5mg Take 1 Univ ers mg tablet - tablet by ity o f 00:00: mouth at [place] [address] bedtime. Medical Branch empaglifloz 2021-0 Yes 10mg Take 1 Univ ers in - tablet by ity of (JARDIANCE) 00:00: mouth in [place] 10 mg 00 the Medical morning. Branch furosemide 2021-0 Yes 20mg Take 1 Unive rs 20 mg - tablet by ity of tablet 00:00: mouth in [place] 00 the Medical morning. Branch HYDROcodone 2021-0 Yes 1{tbl} Take 1 Un mel -acetaminop 7-26 tablet by ity of hen 5-325 00:00: mouth [place] mg tablet 00 every 6 Medical (six) Branch hours as needed for Pain (scale 7-10). cyclobenzap 2021-0 Yes 10mg Take 1 Univ ers rine 10 mg 7-26 tablet by ity of tablet 00:00: mouth in [place] 00 the Medical morning Branch and 1 tablet at noon and 1 tablet in the evening. docusate 2021-0 Yes 100mg Take 1 Univer s 100 mg 7-26 capsule by ity of capsule 00:00: mouth in [place] 00 the Medical morning Branch and 1 capsule in the evening. atorvastati 2021-0 Yes 40mg Take 1 Univ ers n 40 mg 7-26 tablet by ity of tablet 00:00: mouth at [place] [address] bedtime. Medical Branch donepeziL 5 2021-0 Yes 5mg Take 1 Univ ers mg tablet 7-26 tablet by ity o f 00:00: mouth at [place] [address] bedtime. Medical Branch empaglifloz 2-0 Yes 10mg Take 1 Univ ers in 7-26 tablet by ity of (JARDIANCE) 00:00: mouth in [place] 10 mg 00 the Medical morning. Branch furosemide 2-0 Yes 20mg Take 1 Unive rs 20 mg 7-26 tablet by ity of tablet 00:00: mouth in [place] 00 the Medical morning. Branch HYDROcodone 2021-0 Yes 1{tbl} Take 1 Un mel -acetaminop 7-26 tablet by ity of hen 5-325 00:00: mouth [place] mg tablet 00 every 6 Medical (six) Branch hours as needed for Pain (scale 7-10). cyclobenzap 2021-0 Yes 10mg Take 1 Univ ers rine 10 mg 7-26 tablet by ity of tablet 00:00: mouth in [place] 00 the Medical morning Branch and 1 tablet at noon and 1 tablet in the evening. docusate 2022-0 Yes 100mg Take 1 Univer s 100 mg 7-26 capsule by ity of capsule 00:00: mouth in [place] 00 the Medical morning Branch and 1 capsule in the evening. atorvastati 2-0 Yes 40mg Take 1 Univ ers n 40 mg 7-26 tablet by ity of tablet 00:00: mouth at [place] [address] bedtime. Medical Branch donepeziL 5 2021-0 Yes 5mg Take 1 Univ ers mg tablet 7-26 tablet by ity o f 00:00: mouth at [place] [address] bedtime. Medical Branch empaglifloz 2-0 Yes 10mg Take 1 Univ ers in 7-26 tablet by ity of (JARDIANCE) 00:00: mouth in [place] 10 mg 00 the Medical morning. Branch furosemide 2-0 Yes 20mg Take 1 Unive rs 20 mg 7-26 tablet by ity of tablet 00:00: mouth in [place] 00 the Medical morning. Branch HYDROcodone 2-0 Yes 1{tbl} Take 1 Un mel -acetaminop 7-26 tablet by ity of hen 5-325 00:00: mouth [place] mg tablet 00 every 6 Medical (six) Branch hours as needed for Pain (scale 7-10). cyclobenzap Yes 10mg 10 mg, Univ ers rine 7-25 Oral, TID, ity of (FLEXERIL) 19:00: First dose [place] tablet 10 00 on [facility] mg 06/09/22 at Branch 1400, Until Discontinu ed, Routine aspirin EC Yes 81mg 81 mg, Unive rs tablet 81 06-09 Oral, ity of mg 14:00: DAILY, [place] 00 First dose Medical on Thu06/09/22 at 0900, Until Discontinu ed, Routine NaCl 0.9% 2021- No 500mL at 50 Unive rs (NS) IV 06-08-24 mL/hr, IV ity of infusion 21:45: 21:06 Infusion, [place] 500 mL 00 :00 ONCE, 1 Medical dose, On [facility] 06/08/22 at 1645, Routine Sliding Yes Subcutaneo Univ ers Scale 7-24 us, Q4H, ity of Insulin - 20:00: First dose [place] Lispro 00 on [facility] (HumaLOG) + 06/08/22 at Br anch Fsbg 1500, Testing Until Discontinu ed, Routine metoprolol Yes 25mg 25 mg, Unive rs succinate 06-08 Oral, ity of XL (TOPROL 14:00: DAILY, [place] XL) tablet 00 First dose Med ical 25 mg (after Branch last modificati on) on [place] 06/08/22 at 0900, Until Discontinu ed, Routine furosemide 2021- No 80mg 80 mg, Univ ers (LASIX) 06-06 Oral, ity of tablet 80 14:00: 19:53 QAM+PM, [place] mg 00 :33 First dose Medical on Thu06/06/22 at 0900, Until Discontinu ed, Routine traMADoL 2021- No 50mg 50 mg, Univer s (ULTRAM) 06-0624 Oral, ity of tablet 50 05:00: 04:59 Q8HPRN, [place] mg 00 :00 Starting Medical on Thu [place] 06/06/22 at 0000, Until 06/07/22 at 2359, Routine, Pain (scale 4-6) morpHINE (2 2021- No 2mg 2 mg, Slow Univers mg/mL) 06-05 IV Push, ity of injection 2 07:15: 06:18 ONCE, 1 [place] mg 00 :00 dose, On Medical Madhavi Branch 06/05/22 at 0215, Routine morpHINE (2 2021- No 2mg 2 mg, Slow Univers mg/mL) 06-05 IV Push, ity of injection 2 06:00: 04:51 ONCE, 1 [place] mg 00 :00 [facility], [facility] at 0100, Routine donepeziL Yes 5mg 5 mg, Univers (ARICEPT) 06-05 Oral, QHS, ity of tablet 5 mg 02:00: First dose [place] 00 on [facility] Medical 06/04/22 at Branch 2100, Until Discontinu ed, Routine acetaminoph Yes 1000mg 1,000 mg, Univers en - Oral, Q8H, ity of (TYLENOL) 19:15: First dose [place] tablet 00 on Thu Medical 1,000 mg 06/04/22 at [facility] h 1415, Until Discontinu ed, Routine sulfur 2021- No [id number] 5mL 5 mL, Unive rs hexafluorid 06-04 Intravenou i ty of e microsphr 19:15: 19:15 s, ONCE, 1 [place] (LUMASON) 00 :00 dose, On Medica l injection 5 Thu Branch mL 06/04/22 at 1415, Routine
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 Restricted medication : ALEXANDRA STEPHENSON cyclobenzap 2021- No 10mg 10 mg, Uni vers rine 06-04 Oral, ity of (FLEXERIL) 16:40: 22:06 TIDPRN, [place] tablet 10 06 :37 Starting Medica l mg on Wed Branch 06/04/22 at 1140, Until 06/08/22 at 1706, Routine, Muscle Spasms HYDROcodone Yes 1{tbl} 1 tablet, Univers -acetaminop 06-04 Oral, ity of hen (NORCO 15:25: Q6HPRN, [place] 5) 5-325 mg 21 Starting Medi birdie tablet 1 on Thu Branch tablet 06/04/22 at 1025, Until Discontinu ed, Routine, Pain (scale 7-10) spironolact Yes 12.5mg 12.5 mg, Univers one 06-04 Oral, ity of (ALDACTONE) 14:00: DAILY, [place] tablet 12.5 00 First dose Me dical mg on Thu Branch 06/04/22 at 0900, Until Discontinu ed, Routine empaglifloz 2021- No 10mg 10 mg, Uni vers in 06-0424 Oral, ity of (JARDIANCE) 14:00: 20:35 DAILY, [place] tablet 10 00 :25 First dose Medi birdie mg on Thu Branch 06/04/22 at 0900, Until Discontinu ed, Routine
Is this a home medication ? Yes
Has this patient brought their own medication ? No
Jefry roca will dispense the medication from inpatient. Pharmacy will dispense the medication from inpatient.
Inpati ent ordering of this medication is not allowed unless the patient is maintained on this medication at home, and home supply is unavailabl e. Does this order meet the criteria for inpatient ordering? Yes metoprolol No 12.5mg 12.5 mg, Univers succinate 06-04 0723 Oral, ity of XL (TOPROL 14:00: 16:01 [...] 100mg 100 mg, Univ ers (COLACE) 06-04 0721 Oral, BID, ity of capsule 100 13:00: 13:55 First dose [place] mg 00 :04 on [facility] Medical 06/04/22 at Branch 0800, Until Discontinu ed, Routine Sliding 2021- No Subcutaneo Uni vers Scale 06-04 07-24 us, AC+HS, ity of Insulin-Reg 12:30: 19:58 First dose [place] ular + Fsbg 00 :14 on Thu Medica l Testing 06/04/22 at Branch 0730, Until Discontinu ed, Routine heparin Yes 5000U 5,000 Univers (porcine) 06-04 Units, ity of injection 03:00: Subcutaneo [place] [...] [place] mg 05 :35 Starting Medical on Thu Branch 06/03/22 at 2120, Until Thu06/04/22 at 1028, Routine, Pain (scale 7-10) acetaminoph 2021- No 650mg 650 mg, U nivers en 06-04 Oral, ity of (TYLENOL) 02:20: 19:06 Q[facility]HPRN, [facility] 650 01 :54 Starting Medic al mg on Thu Branch 06/03/22 at 2120, Until Thu06/04/22 at 1406, Routine, Pain (scale 1-3) dextrose Yes 250mL 250 mL, IV Un mel 10% (D10W) 06-04 Infusion, ity of bolus 02:18: PRN - SEE [place] infusion 29 INSTRUCTIO Medic al 250 mL NS, Branch Administer over 60 Minutes, Other, If blood glucose is < or = 70 mg/dL and patient is unable to swallow or has mental status changes, Starting on 06/03/22 at 2118
If blood glucose is < [...] glucose is < 80 mg/dL, repeat.
glucagon 2021-0 Yes 1mg 1 mg, Univers (GLUCAGEN 06-04 Intramuscu ity of DIAGNOSTIC 02:18: lar, PRN, [place] KIT) 26 Starting Medical injection 1 on [facility] 06/03/22 at 2118, Until Discontinu ed, ADAMA, Blood Glucose < or = 70 mg/dL and patient is unable to swallow or has mental changes. gabapentin 0 Yes 100mg 100 mg, Uni vers (NEURONTIN) 06-04 Oral, TID, it y of capsule 100 02:15: First dose [place] mg 00 on [facility] 06/03/22 at Branch 2115, Until Discontinu ed, Routine atorvastati Yes 40mg 40 mg, Univ ers n (LIPITOR) 7-20 Oral, QHS, it y of tablet 40 02:15: First dose [place] mg 00 on [facility] 06/03/22 at Branch 2115, Until Discontinu ed, Routine QUEtiapine 0 Yes 25mg 25 mg, Unive rs (SEROQUEL) 06-04 Oral, ity of tablet 25 02:07: QHSPRN, [place] mg 11 Starting Medical on [facility] 06/03/22 at 2107, Until Discontinu ed, Routine, agitation/ insomnia traMADoL 2021-0 No 50mg 50 mg, Univer s (ULTRAM) 06-04 0721 Oral, ity of tablet 50 01:06: 22:16 Q8HPRN, [place] mg 10 :44 Starting Medical on [facility] 06/03/22 at 2006, Until Madhavi 06/05/22 at 1716, Routine, Pain (scale 4-6) morpHINE (4 No 4mg 4 mg, Slow Univers mg/mL) 06-03 IV Push, ity of injection 4 19:30: 18:37 ONCE, 1 [place] mg 00 :00 dose, On Medical [facility] Branch 06/03/22 at 1430, Routine metoprolol No 50mg 50 mg, Univ ers tartrate 06-03 Oral, ity of (LOPRESSOR) 18:45: 19:43 ONCE, 1 [place] tablet 50 00 :00 dose, On Medica l mg [facility] Branch 06/03/22 at 1345, Routine metoprolol No 5mg 5 mg, Slow Univers (LOPRESSOR) 06-03 IV Push, ity of injection 5 17:45: 17:40 ONCE, 1 [place] mg 00 :00 dose, On [facility] 06/03/22 at 1245, ADAMA FENTanyl PF No 100ug 100 mcg, Univers (SUBLIMAZE 06-03 Slow IV ity o f (PF)) 14:45: 14:47 Push, [place] injection 00 :00 ONCE, 1 Medical 100 mcg dose, On Branch [facility] 06/03/22 at 0945, Routine nitroglycer Yes .4mg Take 0.4 Un mel in 7-16 mg by ity of (NITRO-TIME 16:29: mouth as [place] ORAL) 51 needed for Medical Other Branch (chest pain every 5 minutes x 3 doses). donepeziL 5 Yes 5mg Take 5 mg U nivers mg tablet 7-16 by mouth ity of 16:29: at [place] [id number] bedtime. Medical Branch atorvastati Yes 40mg Take 40 mg Univers n 40 mg 7-16 by mouth ity of tablet 16:29: at [place] [address] bedtime. Medical Branch gabapentin Yes 100mg Take 100 Un mel 300 mg 7-16 mg by ity of capsule 16:29: mouth in [place] [address] the Medical morning Branch and 100 mg at noon and 100 mg in the evening. empaglifloz Yes 10mg Take 10 mg Univers in 7-16 by mouth ity of (JARDIANCE) 16:29: [place]. [place] 10 mg 51 Medical Branch nitroglycer 0 Yes .4mg Take 0.4 Un mel in 7-16 mg by ity of (NITRO-TIME 16:29: mouth as [place] ORAL) 51 needed for Medical Other Branch (chest pain every 5 minutes x 3 doses). donepeziL 5 Yes 5mg Take 5 mg U nivers mg tablet 7-16 by mouth ity of 16:29: at [place] [address] bedtime. Medical Branch atorvastati 0 Yes 40mg Take 40 mg Univers n 40 mg 7-16 by mouth ity of tablet 16:29: at [place] [address] bedtime. Medical Branch gabapentin Yes 100mg Take 100 Un mel 300 mg 7-16 mg by ity of capsule 16:29: mouth in [place] [address] the Medical morning Branch and 100 mg [...] of tablet 00:00: mouth in [place] [address] the Medical morning. Branch lidocaine 5 0 Yes 3{patch Apply 3 Univers % (700 7-16 } Patches to ity of mg/patch) 00:00: area(s) in [place] patch 00 the Medical morning. Branch clopidogreL 0 Yes 75mg Take 1 Univ ers 75 mg 7-16 tablet by ity of tablet 00:00: mouth in [place] [address] the Medical morning. Branch aspirin 81 0 Yes 81mg Take 1 Unive rs mg chewable 7-16 tablet by ity of tablet 00:00: mouth in [place] 00 the Medical morning. Branch metoprolol 2021-0 Yes 12.5mg Take 0.5 U nivers succinate 7-16 tablets by ity of XL 25 mg 24 00:00: mouth in [place] hr tablet 00 the Medical morning. Branch spironolact 2-0 Yes 12.5mg Take 0.5 Univers one 25 mg 7-16 tablets by ity of tablet 00:00: mouth in [place] 00 the Medical morning. Branch lidocaine 5 2021-0 Yes 3{patch Apply 3 Univers % (700 7-16 } Patches to ity of mg/patch) 00:00: area(s) in [place] patch 00 the Medical morning. Branch clopidogreL 2021-0 Yes 75mg Take 1 Univ ers 75 mg 7-16 tablet by ity of tablet 00:00: mouth in [place] 00 the Medical morning. Branch aspirin 81 2021-0 Yes 81mg Take 1 Unive rs mg chewable 7-16 tablet by ity of tablet 00:00: mouth in [place] 00 the Medical morning. Branch metoprolol 2021-0 Yes 12.5mg Take 0.5 U nivers succinate 7-16 tablets by ity of XL 25 mg 24 00:00: mouth in [place] hr tablet 00 the Medical morning. Branch spironolact 2021-0 2021- No 12.5mg Take 0.5 Univers one 25 mg 7-16 07-26 tablets by ity of tablet 00:00: 00:00 mouth in [place] 00 :00 the Medical morning. Branch lidocaine 5 2021-0 2022- No 3{patch Apply 3 Univers % (700 7-16 07-26 } Patches to ity of mg/patch) 00:00: 00:00 area(s) in [place] patch 00 :00 the Medical morning. Branch clopidogreL 2021-0 2- No 75mg Take 1 Uni vers 75 mg 7-16 07-26 tablet by ity of tablet 00:00: 00:00 mouth in [place] 00 :00 the Medical morning. Branch aspirin 81 2-0 2- No 81mg Take 1 Univ ers mg chewable 7-16 07-26 tablet by it y of tablet 00:00: 00:00 mouth in [place] 00 :00 the Medical morning. Branch metoprolol 2-0 2- No 12.5mg Take 0.5 Univers succinate 7-16 07-26 tablets by ity of XL 25 mg 24 00:00: 00:00 mouth in [place] hr tablet 00 :00 the Medical morning. Branch lidocaine 2021- No 1{patch 1 Patch, Univers (LIDODERM) 05-30 } Topical, ity of 5 % (700 18:00: 05:40 Administer [place] mg/patch) 00 :00 over 12 Medical patch 1 Hours, Branch Patch ONCE, 1 dose, On Thu05/30/22 at 1300, Routine trazodone 2021-2021- No 50mg Take 50 mg U nivers HCl 05-30 by mouth ity of (TRAZODONE 16:26: 00:00 every [place] ORAL) 33 :00 evening. Medical Branch potassium 2021-2021- No 10meq Take 10 Uni vers chloride 10 05-30-15 mEq by ity o f mEq CR 16:26: 00:00 mouth [place] tablet 33 :00 daily. Medical Branch losartan 25 2021- No 25mg Take 25 mg Univers mg tablet 05-30 by mouth ity o f 16:26: 00:00 in the [place] 33 :00 morning. Medical Branch isosorbide 2021-2021- No 120mg Take 120 U nivers mononitrate 05-30-15 mg by ity of 60 mg 24 hr 16:26: 00:00 mouth. [place] tablet 33 :00 Medical Branch furosemide 2021-2021- No 20mg Take 20 mg Univers 20 mg 05-30 by mouth ity of tablet 16:26: 00:00 in the [place] 33 :00 morning. Medical Branch metoprolol 2021-2021- No 25mg Take 25 mg Univers succinate 05-30-15 by mouth ity o f XL 25 mg 24 16:26: 00:00 in the [place] hr tablet 33 :00 morning. Medica l Branch docusate Yes 100mg Take 1 Univer s 100 mg 7-15 capsule by ity of capsule 00:00: mouth in [place] 00 the Medical morning Branch and 1 capsule in the evening. furosemide 0 Yes 80mg Take 1 Unive rs 80 mg 7-15 tablet by ity of tablet 00:00: mouth [place] [address] every Medical morning Branch and evening. docusate Yes 100mg Take 1 Univer s 100 mg 7-15 capsule by ity of capsule 00:00: mouth in [place] 00 the Medical morning Branch and 1 capsule in the evening. furosemide Yes 80mg Take 1 Unive rs 80 [...] 80mg Take 1 Univ ers 80 mg 05-30- tablet by ity of tablet 00:00: 00:00 [...] 00 First dose Me dical mg on [place] Branch 05/29/22 at 1500, Until Discontinu ed, Routine methocarbam 2021- No 500mg 500 mg, U nivers oL 05-29 Oral, ity of (ROBAXIN) 09:44: 13:02 Q4HPRN, [place] tablet 500 52 :28 Starting Medic al mg on Thu05/29/22 at 0444, Until Thu05/30/22 at 0802, Routine, Muscle Spasms morpHINE (2 0 Yes 2mg 2 mg, Slow Univers mg/mL) 05-28 IV Push, ity of injection 2 22:15: Q6HPRN, [place] mg 00 Starting Medical on Thu05/28/22 at 1715, Until Discontinu ed, Routine, Pain (scale 7-10) oxyCODONE-a 0 Yes 1{tbl} 1 tablet, Univers cetaminophe 05-28 Oral, ity of n 22:08: Q4HPRN, [place] (PERCOCET) 46 Starting Medic al 5-325 mg on Thu per tablet 05/28/22 at 1 tablet 1708, Until Discontinu ed, Routine, Pain (scale 4-6) furosemide 2021-0 Yes 80mg 80 mg, Unive rs (LASIX) 05-28 Oral, ity of tablet 80 22:00: QAM+PM, [place] mg 00 First dose Medical on Thu05/28/22 at 1700, Until Discontinu ed, Routine metoprolol 0 Yes 12.5mg 12.5 mg, U nivers succinate 05-28 Oral, ity of XL (TOPROL 20:15: DAILY, [place] XL) tablet 00 First dose Med ical 12.5 mg on Thu05/28/22 at 1515, Until Discontinu ed, Routine methocarbam 2021-0 2021- No 500mg 500 mg, U nivers oL 05-28 07-15 Oral, QID, ity of (ROBAXIN) 17:00: 13:02 First dose [place] tablet 500 00 :36 on Thu mg 05/28/22 at Branch 1200, Until Discontinu ed, Routine gabapentin 2021-0 Yes 100mg 100 mg, Uni vers (NEURONTIN) 05-27 Oral, TID, it y of capsule 100 19:00: First dose [place] mg 00 on Thu05/27/22 at Branch 1400, Until Discontinu ed, Routine QUEtiapine 2021-0 Yes 25mg 25 mg, Unive rs (SEROQUEL) 05-27 Oral, ity of tablet 25 18:45: BIDPRN, [place] mg 00 Starting Medical on [facility] 05/27/22 at 1345, Until Discontinu ed, Routine, agitation, anxiety QUEtiapine 2021- No 25mg 25 mg, Univ ers (SEROQUEL) 05-27 Oral, BID, it y of tablet 25 13:00: 18:31 First dose [place] mg 00 :35 on [facility] 05/27/22 at Branch 0800, Until Discontinu ed, Routine HYDROcodone 2021- No 1{tbl} 1 tablet, Univers -acetaminop 05-27 Oral, ity of hen (NORCO) 05:49: 22:09 Q4HPRN, [place] 10-325 mg 42 :14 Starting Medica l tablet 1 on [facility] tablet 05/27/22 at 0049, Until Thu05/28/22 at 1709, Routine, Pain (scale 4-6) morpHINE (4 No 4mg 4 mg, Slow Univers mg/mL) 05-27 IV Push, ity of injection 4 05:49: 22:09 Q4HPRN, [place] mg 29 :14 Starting Medical on [facility] 05/27/22 at 0049, Until Thu05/28/22 at 1709, Routine, Pain (scale 7-10) QUEtiapine No 25mg 25 mg, Univ ers (SEROQUEL) 05-26 Oral, ity of tablet 25 23:30: 23:25 ONCE, 1 [place] mg 00 :00 dose, On Medical [facility] 05/26/22 at 1830, Routine sulfur 2021- No [id number] 5mL 5 mL, [facility] [place] [facility] rs hexafluorid 05-26 Intravenou i ty of e microsphr 15:00: 15:00 s, ONCE, 1 [place] (LUMASON) 00 :00 dose, On Medica l injection 5 [facility] mL 05/26/22 at 1000, Routine
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 Restricted medication : KITTY GAGE clopidogreL Yes 75mg 75 mg, Univ ers (PLAVIX) 75 05-26 Oral, ity of mg tablet 14:00: DAILY, [place] 75 mg 00 First dose Medical on [facility] 05/26/22 at 0900, Until Discontinu ed, Routine aspirin Yes 81mg 81 mg, Univers chewable 05-26 Oral, ity of tablet 81 14:00: DAILY, [place] mg 00 First dose Medical on [facility] 05/26/22 at 0900, Until Discontinu ed, Routine ketorolac 2021- No 15mg 15 mg, Unive rs (TORADOL) 05-25 Slow IV ity of injection 21:45: 21:01 Push, [place] 15 mg 00 :00 ONCE, 1 Medical dose, On [facility] 05/25/22 at 1645, Routine ALPRAZolam 2021- No .25mg 0.25 mg, U nivers (XANAX) 05-25 Oral, ity of tablet 0.25 21:45: 21:01 ONCE, 1 [place] mg 00 :00 dose, On [facility] 05/25/22 at 1645, Routine furosemide 2021- No 40mg 40 mg, Univ ers (LASIX) 05-25 Slow IV ity of injection 19:00: 19:49 Push, [place] 40 mg 00 :32 Q12H, Medical First dose Branch [facility] 05/25/22 at 1400, Until Discontinu ed, Routine [...] :00 ONCE, 1 Medical dose, On Branch [facility] 05/24/22 at 2330, Routine atorvastati Yes 40mg 40 mg, Univ ers n (LIPITOR) 05-25 Oral, QHS, it y of tablet 40 02:00: First dose [place] mg 00 on [facility] 05/24/22 at Branch 2100, Until Discontinu ed, Routine lidocaine 2021- No 2{patch 2 Patch, Univers (LIDODERM) 05-24 } Topical, ity of 5 % (700 23:45: 16:50 Administer [place] mg/patch) 00 :54 over 12 Medical patch 2 Hours, Branch Patch DAILY, First dose on [facility] 05/24/22 at 1845, Until Discontinu ed, Routine HYDROcodone 0 2022- No 1{tbl} 1 tablet, Univers -acetaminop 05-24 Oral, ity of hen (NORCO) 23:43: 05:49 Q4HPRN, [place] 10-325 mg 24 :53 Starting Medica l tablet 1 on [facility] Branch tablet 05/24/22 at 1843, Until 05/27/22 at 0049, Routine, Pain (scale 4-6), Pain (scale 7-10) heparin Yes 5000U 5,000 Univers (porcine) 05-24 Units, ity of injection 13:00: Subcutaneo [place] 5,000 Units 00 us, Q12H, Med ical First dose Branch on [facility] 05/24/22 at 0800, Until Discontinu ed, Routine ondansetron Yes 4mg 4 mg, Slow Univers (ZOFRAN 05-24 IV Push, ity of (PF)) 10:55: [facility], [place] injection 4 26 Starting Medi birdie mg on [facility] Branch 05/24/22 at 0555, Until Discontinu ed, Routine, Nausea and Vomiting (N/V) acetaminoph Yes 650mg 650 mg, Un mel en 05-24 Oral, ity of (TYLENOL) 10:55: Q6RN, [place] tablet 650 21 Starting Medic al mg on [facility] Branch 05/24/22 at 0555, Until Discontinu ed, Routine, Pain (scale 1-3) QUEtiapine 2021- No 25mg 25 mg, Univ ers (SEROQUEL) 05-24 Oral, ity of tablet 25 10:54: 23:07 QHSPRN, [place] mg 34 :00 Starting Medical on Sat Branch 05/24/22 at 0554, Until 05/26/22 at 1807, Routine, agitation/ insomnia lidocaine 2021-0 2021- No 1{patch 1 Patch, Univers (LIDODERM) 05-24 } Topical, ity of 5 % (700 08:45: 20:45 Administer [place] mg/patch) 00 :00 over 12 Medical patch 1 Hours, Branch Patch ONCE, 1 dose, On 05/24/22 at 0345, Routine enoxaparin 2021- No 1mg/kg 80 mg Uni vers (LOVENOX) 05-24 (rounded ity o f injection 08:15: 07:51 from 77.1 [place] 80 mg 00 :00 mg = 1 Medical mg/kg Branch ?77.1 kg), Subcutaneo us, ONCE, 1 dose, On 05/24/22 at 0315, Routine aspirin No 324mg 324 mg, Unive rs chewable [...] Branch at 0315, Routine iopamidol 2021- No [id number] 100mL 100 mL, Univers (ISOVUE 05-24 Intravenou [...] ity o f (PF)) 06:46: 23:44 Push, [place] injection 51 :55 Q30MIN Medical 50 mcg [...] 05-24 Slow IV ity o f (PF)) 04:04: 06:06 Push, [place] injection 41 :00 Q30MIN Medical 50 mcg PRN, 3 Branch doses, Starting on Thu05/23/22 at 2304, Until Discontinu ed, ADAMA, Pain (scale 7-10) atorvastati Yes 40 mg = 1 M emoria n 40 mg 4-25 tab, PO, l oral tablet 18:19: Bedtime, # [place] 00 30 tab, 0 Refill(s), Pharmacy: [facility], 170.18, cm, 03/05/22 6:53:00 CDT, Height, 77.3, kg, 03/05/22 6:53:00 CDT, Weight atorvastati Yes 40 mg = 1 M emoria n 40 mg 4-25 tab, PO, l oral tablet 18:19: Bedtime, # [place] 00 30 tab, 0 Refill(s), Pharmacy: [facility], 170.18, cm, 03/05/22 6:53:00 CDT, Height, 77.3, kg, 03/05/22 6:53:00 CDT, Weight lidocaine 2022-0 Yes 1 patch, Manjit greg topical 4-25 TOP, l patch (5% 18:18: Daily, # [place] s[place] film) 00 10 patch, 0 Refill(s), Pharmacy: [facility] 482, 170.18, cm, 03/05/22 6:53:00 CDT, Height, 77.3, kg, 03/05/22 6:53:00 CDT, Weight lidocaine 2021-0 Yes 1 patch, Manjit greg topical 4-25 TOP, l patch (5% 18:18: Daily, # [place] s[place] film) 00 10 patch, 0 Refill(s), Pharmacy: [id number], 170.18, cm, 03/05/22 6:53:00 CDT, Height, 77.3, kg, 03/05/22 6:53:00 CDT, Weight methocarbam 0 Yes 500 mg = 1 Memoria ol 500 mg 4-25 tab, PO, l oral tablet 18:17: TID, X 7 He rm day, # 21 tab, 0 Refill(s), Pharmacy: [place] [id number], 170.18, cm, 03/05/22 6:53:00 CDT, Height, 77.3, kg, 03/05/22 6:53:00 CDT, Weight Metoprolol 0 Yes 25 mg = 1 Me moria Succinate 4-25 tab, PO, l ER 25 mg 18:17: Daily, # [place] nn oral 00 30 tab, 0 tablet, Refill(s), extended Pharmacy: release [facility] 482, 170.18, cm, 03/05/22 6:53:00 CDT, Height, 77.3, kg, 03/05/22 6:53:00 CDT, Weight methocarbam 0 Yes 500 mg = 1 Memoria ol 500 mg 4-25 tab, PO, l oral tablet 18:17: TID, X 7 He rmann day, # 21 tab, 0 Refill(s), Pharmacy: [place] [id number], 170.18, cm, 03/05/22 6:53:00 CDT, Height, 77.3, kg, 03/05/22 6:53:00 CDT, Weight Metoprolol 2022-0 Yes 25 mg = 1 Me moria Succinate 4-25 tab, PO, l ER 25 mg 18:17: Daily, # [place] oral 00 30 tab, 0 tablet, Refill(s), extended Pharmacy: [facility], 170.18, cm, 03/05/22 6:53:00 CDT, Height, 77.3, kg, 03/05/22 6:53:00 CDT, Weight empaglifloz 0 Yes 10 mg = 1 M emoria in 10 mg 4-25 tab, PO, l oral tablet 18:16: Daily, # [place] 00 30 tab, 0 Refill(s), Pharmacy: [place] [id number], 170.18, cm, 03/05/22 6:53:00 CDT, Height, 77.3, kg, 03/05/22 6:53:00 CDT, Weight gabapentin 0 Yes 100 mg = 1 M emoria 100 mg oral 4-25 cap, PO, l capsule 18:16: Q8H, # 30 [place] nn 00 cap, 0 Refill(s), Pharmacy: [facility], 170.18, cm, 03/05/22 6:53:00 CDT, Height, 77.3, kg, 03/05/22 6:53:00 CDT, Weight losartan 25 2021-0 Yes 25 mg = 1 M emoria mg oral 4-25 tab, PO, l tablet 18:16: Daily, # [place] 00 30 tab, 0 Refill(s), Pharmacy: [place] [id number], 170.18, cm, 03/05/22 6:53:00 CDT, Height, 77.3, kg, 03/05/22 6:53:00 CDT, Weight empaglifloz 2021-0 Yes 10 mg = 1 M emoria in 10 mg 4-25 tab, PO, l oral tablet 18:16: Daily, # [place] 00 30 tab, 0 Refill(s), Pharmacy: [place] [id number], 170.18, cm, 03/05/22 6:53:00 CDT, Height, 77.3, kg, 03/05/22 6:53:00 CDT, Weight gabapentin 2021-0 Yes 100 mg = 1 M emoria 100 mg oral 4-25 cap, PO, l capsule 18:16: Q8H, # 30 [place] nn 00 cap, 0 Refill(s), Pharmacy: [place] [id number], 170.18, cm, 03/05/22 6:53:00 CDT, Height, 77.3, kg, 03/05/22 6:53:00 CDT, Weight losartan 25 2021-0 Yes 25 mg = 1 M emoria mg oral 4-25 tab, PO, l tablet 18:16: Daily, # [place] 00 30 tab, 0 Refill(s), Pharmacy: [place] [address], 170.18, cm, 03/05/22 6:53:00 CDT, Height, 77.3, kg, 03/05/22 6:53:00 CDT, Weight donepezil 5 2021-0 Yes 5 mg = 1 Me moria mg oral 4-25 tab, PO, l tablet 18:15: Bedtime, # [place] 00 30 tab, 0 Refill(s), Pharmacy: [place] [address], 170.18, cm, 03/05/22 6:53:00 CDT, Height, 77.3, kg, 03/05/22 6:53:00 CDT, Weight aspirin 81 2021-0 Yes 81 mg = 1 Me moria mg tablet, 4-25 tab, PO, l enteric 18:15: Daily, # [place] n coated 00 30 tab, 0 Refill(s), Pharmacy: [place] [address], 170.18, cm, 03/05/22 6:53:00 CDT, Height, 77.3, kg, 03/05/22 6:53:00 CDT, Weight donepezil 5 2021-0 Yes 5 mg = 1 Me moria mg oral 4-25 tab, PO, l tablet 18:15: Bedtime, # [place] 00 30 tab, 0 Refill(s), Pharmacy: [place] [address], 170.18, cm, 03/05/22 6:53:00 CDT, Height, 77.3, kg, 03/05/22 6:53:00 CDT, Weight aspirin 81 2021-0 Yes 81 mg = 1 Me moria mg tablet, 4-25 tab, PO, l enteric 18:15: Daily, # [place] coated 00 30 tab, 0 Refill(s), Pharmacy: [facility], 170.18, cm, 03/05/22 6:53:00 CDT, Height, 77.3, kg, 03/05/22 6:53:00 CDT, Weight MiraLax No Notes: Memoria 4-24 Dissolve l 18:08: in 8 oz of [place] 00 water or juice. (Same as: Miralax) senna 8.6 No Notes: Memori a mg oral 4-24 (Same as: l tablet 18:08: Senokot) [place] 00 Metamucil No Notes: Memori a 4-24 (Same as: l 18:08: Metamucil) [place] 00 Mix in 8 oz liquid with meal. MiraLax No Notes: Memoria 4-24 Dissolve l 18:08: in 8 oz of [place] 00 water or juice. (Same as: Miralax) senna 8.6 No Notes: Memori a mg oral 4-24 (Same as: l tablet 18:08: Senokot) [place] 00 Metamucil No Notes: Memori a 4-24 (Same as: l 18:08: Metamucil) [place] 00 Mix in 8 oz liquid with meal. tramadol No Notes: Not Mem oria 4-24 to exceed l 15:13: 400mg/day. [place] 00 (Same As: Ultram) tramadol No Notes: Not Mem oria 4-24 to exceed l 15:13: 400mg/day. [place] 00 (Same As: Ultram) donepezil No Notes: Memori a 4-24 (Same as: l 02:00: Aricept) [place] 00 donepezil No Notes: Memori a 4-24 (Same as: l 02:00: Aricept) [place] 00 Metoprolol No Notes: Memor ia Succinate 4-23 (Same as: l ER 25 mg 17:02: Toprol XL) Her ricci oral 00 Do Not tablet, Crush extended release Metoprolol No Notes: Memor ia Succinate 4-23 (Same as: l ER 25 mg 17:02: Toprol XL) Her ricci oral 00 Do Not tablet, Crush extended release Januvia No 100 mg, 1 Memor ia 4-23 tab, l 14:00: Route: PO, [place] 00 Drug form: TAB, Daily, Dosing Weight 77.3, kg, Start date: 03/08/22 9:00:00 CDT, Duration: 30 day, Stop date: 04/06/22 9:00:00 CDT Januvia No 100 mg, 1 Memor ia 4-23 tab, l 14:00: Route: PO, [place] 00 Drug form: TAB, Daily, Dosing Weight 77.3, kg, Start date: 03/08/22 9:00:00 CDT, Duration: 30 day, Stop date: 04/06/22 9:00:00 CDT MiraLax No Notes: Memoria 4-23 Dissolve l 13:51: in 8 oz of [place] 00 water or juice. (Same as: Miralax) senna 8.6 No Notes: Memori a mg oral 4-23 (Same as: l tablet 13:51: Senokot) [place] 00 MiraLax No Notes: Memoria 4-23 Dissolve l 13:51: in 8 oz of [place] 00 water or juice. (Same as: Miralax) senna 8.6 No Notes: Memori a mg oral 4-23 (Same as: l tablet 13:51: Senokot) [place] tramadol No Notes: 25 Manjit greg 4-23 mg = 1/2 x l 05:39: 50 mg TAB [place] 00 Not to exceed 400mg/day. (Same As: Ultram) tramadol No Notes: 25 Manjit greg 4-23 mg = 1/2 x l 05:39: 50 mg TAB [place] 00 Not to exceed 400mg/day. (Same As: Ultram) MiraLax No Notes: Memoria 4-22 Dissolve l 23:54: in 8 oz of [place] 00 water or juice. (Same as: Miralax) MiraLax No Notes: Memoria 4-22 Dissolve l 23:54: in 8 oz of [place] water or juice. (Same as: Miralax) gabapentin No 60 Memoria 300 mg oral 4-22 ml/min), l capsule 21:00: Start [place] 00 date: 03/07/22 16:00:00 CDT, Duration: 30 day, Stop date: 04/06/22 8:00:00 CDT gabapentin No 60 Memoria 300 mg oral 4-22 ml/min), l capsule 21:00: Start [place] 00 date: 03/07/22 16:00:00 CDT, Duration: 30 day, Stop date: 04/06/22 8:00:00 CDT acetaminoph No Notes: Do M emoria en-codeine 4-22 not exceed l #3 17:00: 4gm/day of [place] 00 acetaminop hen. (Same as: Tylenol with Codeine # 3) acetaminoph No Notes: Do M emoria en-codeine 4-22 not exceed l #3 17:00: 4gm/day of [place] acetaminop hen. (Same as: Tylenol with Codeine # 3) Plavix 75 No 75 mg = 1 Mem oria mg oral 4-22 tab, PO, l tablet 14:31: Daily, 0 [place] 00 Refill(s) isosorbide No 120 mg = [...] 14:31: Bedtime, 0 [place] nn 00 Refill(s) Plavix 75 No 75 mg = 1 [...] 4-22 tab, PO, l 14:30: Daily, 0 [place] 00 Refill(s) Januvia 100 No 100 mg = 1 Memoria mg oral 4-22 tab, PO, l tablet 14:30: Daily, 0 [place] 00 Refill(s) gabapentin No Notes: Memor ia 100 mg oral 4-22 (Same as: l capsule 14:30: Neurontin) Herm sana 00 Lasix 20 mg No 20 mg = 1 M emoria oral tablet 4-22 tab, PO, l 14:30: Daily, 0 [place] 00 Refill(s) Januvia 100 No 100 mg = 1 Memoria mg oral 4-22 tab, PO, l tablet 14:30: Daily, 0 [place] 00 Refill(s) Robaxin No Notes: Memoria 4-22 (Same l 14:00: as:Robaxin [place] ) enoxaparin No Notes: Memor ia 4-22 (Same as: l 14:00: Lovenox) [place] 00 Robaxin No Notes: Memoria 4-22 (Same l 14:00: as:Robaxin [place] ) enoxaparin No Notes: Memor ia 4-22 (Same as: l 14:00: Lovenox) remove No Notes: Memoria patch 4-22 Remove l 02:00: patch 12 [place] 00 hours after applicatio n each day. remove No Notes: Memoria patch 4-22 Remove l 02:00: patch 12 [place] 00 hours after applicatio n each day. oxyCODONE No Notes: Memori a immediate 4-22 (Same as: l release 01:21: Roxicodone Herm sana ) oxyCODONE No Notes: Memori a immediate 4-22 (Same as: l release 01:21: Roxicodone Herm sana ) Tylenol No Notes: Do Memor ia 4-21 not exceed l 18:49: 4 gm/day. (Same as: Tylenol) Tylenol No Notes: Do Memor ia 4- not exceed l 18:49: 4 gm/day. (Same as: Tylenol) Robaxin No Notes: Memoria 4-21 (Same l 15:57: as:Robaxin ) Robaxin No Notes: Memoria 4-21 (Same l 15:57: as:Robaxin ) losartan No Notes: Memoria 4-21 (Same as: l 14:00: Cozaar) empaglifloz No Notes: Manjit greg in 4-21 (Same as: l 14:00: Jardiance) losartan No Notes: Memoria 4-21 (Same as: l 14:00: Cozaar) empaglifloz No Notes: Manjit greg in 4-21 (Same as: l 14:00: [place]ard[place]) lidocaine No Notes: Memori a topical - Apply only l patch (5% 12:44: once for Herm sana film) 00 up to 12 hours in a 24-hour period (12 hours on and 12 hours off). (Same as: Aspercreme Lidocaine Patch) "Remove old patch before applicatio n of new patch" lidocaine No Notes: Memori a topical -21 Apply only l patch (5% 12:44: once for Herm sana film) 00 up to 12 hours in a 24-hour period (12 hours on and 12 hours off). (Same as: Aspercreme Lidocaine Patch) "Remove old patch before applicatio n of new patch" atorvastati No Notes: Manjit greg n 4-21 (Same as: l 02:00: Lipitor) atorvastati No Notes: Manjit gerg n 4-21 (Same as: l 02:00: Lipitor) adenosine No Notes: For Me moria 4-20 diagnostic l 20:11: use only. (Same as: Adenoscan) MEDICATION WASTE Product Size: 60 mg Product Wasted: ___ mg adenosine No Notes: For Me moria 4-20 diagnostic l 20:11: use only. (Same as: Adenoscan) MEDICATION WASTE Product Size: 60 mg Product Wasted: ___ mg Dextrose No 12.5 gm, Memor ia 50% Syringe 4-20 25 mL, l (D50W) 16:31: Route: IVP, Drug Form: INJ, Dosing Weight 77.3, kg, PRN, PRN Blood Glucose Results, Start date: 03/05/22 11:31:00 CDT, Duration: 30 day, Stop date: 04/04/22 11:30:00 CDT, 0 glucagon No 1 mg, Memoria 4-20 Route: IM, l 16:31: Drug form: PDR/INJ, PRN, Dosing Weight 77.3, kg, PRN [...] temperatur e. Expires in days from ____Date Dextrose No 12.5 gm, Memor ia 50% Syringe 4-20 25 mL, l (D50W) 16:31: Route: [place] 00 IVP, Drug Form: INJ, Dosing Weight 77.3, kg, PRN, PRN Blood Glucose Results, Start date: 03/05/22 11:31:00 CDT, Duration: 30 day, Stop date: 04/04/22 11:30:00 CDT, 0 glucagon No 1 mg, Memoria [...] temperatur e. Expires in days from ____Date [place] 5/325 No Notes: Manjit greg oral tablet 4-20 (Same as: l 16:20: [place] 00 325/5) Do not exceed 4gm/day of acetaminop hen. [place] 5/325 No Notes: Manjit greg oral tablet 4-20 (Same as: l 16:20: [place] 325/5) Do not exceed 4gm/day of acetaminop hen. aspirin No Notes: Do Memor ia 4-20 not crush l 14:54: or chew. [place] 00 (Same As: Ecotrin) aspirin No Notes: Do Memor ia 4-20 not crush l 14:54: or chew. [place] 00 (Same As: Ecotrin) Omnipaque No 80 mL, Memori a 350 mg/mL 4-20 Route: l 12:10: IVP, Drug Form: SOLN, Dosing Weight 77.3, kg, ONCALL, STAT, Start date: 03/05/22 7:10:00 CDT, Duration: 1 doses or times, Weight = 75 - 94kg -- "To be infused by Radiology Staff ONLY" Omnipaque No 80 mL, Memori a 350 [...] acetaminoph No Notes: Do M emoria en 4-20 not exceed l 11:36: 4 gm/day. (Same as: Tylenol) Dextrose No 12.5 gm, Memor ia 50% [...] acetaminoph No Notes: Do M emoria en 4-20 not exceed l 11:36: 4 gm/day. (Same as: Tylenol) FENTanyl PF 2021-0 No 25ug 25 mcg, Un mel (SUBLIMAZE 4-16 04-16 Intramuscu it y of (PF)) 16:45: 16:23 lar, ONCE, [place] injection 00 :00 1 dose, On Medi birdie 25 mcg Sat [place] 03/01/22 at 1145, Routine cyclobenzap 2021- No 10mg 10 mg, Uni vers rine -03-01 Oral, ity of (FLEXERIL) 14:00: 12:59 ONCE, [...] at 0900, 1 mL cyclobenzap 2021- Yes [id number] 10mg Take 1 [facility] rine 10 mg 4-16 tablet by ity of tablet 00:00: mouth 3 [place] 00 (three) Medical times Branch daily as needed for Muscle Spasms. cyclobenzap 2021- Yes [id number] 10mg Take 1 [facility] rine 10 mg 4-16 tablet by ity of tablet 00:00: mouth 3 [place] 00 (three) Medical times Branch daily as needed for Muscle Spasms. cyclobenzap 2021-0 2021- No [id number] 10mg Take 1 [facility] rine 10 mg 4-16 07-15 tablet by ity of tablet 00:00: 00:00 mouth 3 [place] 00 :00 (three) Medical times Branch daily as needed for Muscle Spasms. furosemide Yes 1{tbl} QD Take 1 [facility] (Lasix) 40 2-[address] mg tablet 17:49: mouth [facility] 02 daily. l traZODone 0 Yes 50mg Take 50 mg [facility] (DESYREL) 2-[address] 50 MG 17:49: Hospita tablet 02 l furosemide Yes 1{tbl} QD Take 1 [facility] (Lasix) 40 2-[address] mg tablet 17:49: mouth [facility] 02 daily. l traZODone Yes 50mg Take 50 mg [facility] (DESYREL) 2-[address] 50 MG 17:49: Hospita tablet 02 l clopidogreL 2021- No 75mg QD Take 1 [facility] (PLAVIX) 75 2-08 18- tablet (75 s t mg tablet 00:00: 05:59 mg total) [facility] 00 :00 by mouth l daily for 30 days. isosorbide 2021- No 120mg QD Take 1 [facility] mononitrate 2-08 18- tablet st (IMDUR) 120 00:00: 05:59 (120 mg [facility] MG 24 hr 00 :00 total) by l tablet mouth daily for 30 days. clopidogreL No 75mg QD Take 1 [facility] (PLAVIX) 75 2-08 18- tablet (75 s t mg tablet 00:00: 05:59 mg total) [facility] 00 :00 by mouth l daily for 30 days. isosorbide 2021- No 120mg QD Take 1 [facility] mononitrate 2- tablet st (IMDUR) 120 00:00: 05:59 (120 mg [facility] MG 24 hr 00 :00 total) by l tablet mouth daily for 30 days. isosorbide 2021- No 60mg QD Take 60 mg [facility] mononitrate 212-[address] (IMDUR) 60 17:50: 00:00 daily. [facility]osp [facility]ily MG 24 hr 01 :00 l tablet isosorbide 2021- No 60mg QD Take 60 mg [facility] mononitrate 2- by mouth st (IMDUR) 60 17:50: 00:00 daily. [facility]osp lily MG 24 hr 01 :00 l tablet multivitami Yes 1{tbl} QD Take 1 [facility] n 2-[address] (THERAGRAN) 17:49: mouth Hospi ta tablet 58 nightly. l traMADol 2021-0 Yes 50mg Take 50 mg [facility] (ULTRAM) 50 2-[address] mg tablet 17:49: Hospita 58 l aspirin 2021-0 Yes 81mg QD Take 81 mg Meth mercedes (ECOTRIN) 2-[address] 81 MG 17:49: daily. Hospita enteric 58 l coated tablet atorvastati 0 Yes 40mg QD Take 40 mg Methodi n (LIPITOR) 2-[address] 40 MG 17:49: nightly. Hospita tablet 58 l insulin 2021-0 Yes 30U QD Inject 30 Metho di GLARGINE 2-[address] (LANTUS) 17:49: under the Hosp lily 100 unit/mL 58 skin l injection nightly. (vial) potassium 0 Yes 10meq QD Take 10 Meth mercedes chloride 2-[address] (K-DUR) 10 17:49: mouth Hospit a MEQ CR 58 daily. l tablet multivitami 0 Yes 1{tbl} QD Take 1 Me [facility]odi n 2-[address] (THERAGRAN) 17:49: mouth [facility] ta tablet 58 nightly. l traMADol 2021-0 Yes 50mg Take 50 mg Met [facility]odi (ULTRAM) 50 2-[address] mg tablet 17:49: Hospita 58 l aspirin 2021-0 Yes 81mg QD Take 81 mg Meth mercedes (ECOTRIN) 2-[address] 81 MG 17:49: daily. Hospita enteric 58 l coated tablet atorvastati 0 Yes 40mg QD Take 40 mg Methodi n (LIPITOR) 2-[address] 40 MG 17:49: nightly. Hospita tablet 58 l insulin 2021-0 Yes 30U QD Inject 30 Metho di GLARGINE 2-[address] (LANTUS) 17:49: under the Hosp lily 100 unit/mL 58 skin l injection nightly. (vial) potassium 2021-0 Yes 10meq QD Take 10 Meth mercedes chloride 2-[address] (K-DUR) 10 17:49: mouth Hospit a MEQ CR 58 daily. l tablet nitroglycer 2021-0 2022- No .4mg Place 1 [facility] in 2-09 03-[address] (NITROSTAT) 00:00: 05:59 (0.4 mg [facility] 0.4 MG SL 00 :00 total) l tablet under the tongue every 5 (five) minutes as needed for chest pain for up to 30 days. nitroglycer 2021- No .4mg Place 1 [facility] in 12-[address] (NITROSTAT) 00:00: 05:59 (0.4 mg [...] 300-30 mg day as per tablet needed. acetaminoph 0 Yes 1{tbl} Q.5D Take 1 [facility] en-codeine 1-[address] (TYLENOL 00:00: mouth 2 Hospit a WITH 00 (two) l CODEINE #3) times a 300-30 mg day as per tablet needed. aspirin 81 2020-11- No [id number] 81mg Take 1 [facility] mg chewable 2-12-04 tablet by it y of tablet 00:00: 05:59 mouth [place] 00 :00 daily for Medical 30 days. Branch clopidogreL 2020-11- No [id number] 75mg Take 1 [facility] 75 mg 2-12-04 tablet by ity of tablet 00:00: 05:59 mouth [place] 00 :00 daily for Medical 30 days. Branch furosemide 2020-11- No [id number] 20mg Take 1 [facility] 20 mg 2-04 12- tablet by ity of tablet 00:00: 05:59 mouth [place] 00 :00 daily for Medical 30 days. Branch aspirin 81 2020-11- No [id number] 81mg Take 1 [facility] mg chewable 2-12-04 tablet by it y of tablet 00:00: 05:59 mouth [place] 00 :00 daily for Medical 30 days. Branch clopidogreL 2020-11- No [id number] 75mg Take 1 [facility] 75 mg 2-19 - tablet by ity of tablet 00:00: 05:59 mouth [place] 00 :00 daily for Medical 30 days. Branch furosemide 2020-11- No [id number] 20mg Take 1 [facility] 20 mg 01-04 tablet by ity of tablet 00:00: 05:59 mouth [place] 00 :00 daily for Medical 30 days. Branch aspirin 81 2020-11- No [id number] 81mg Take 1 [facility] mg chewable 01-04 tablet by it y of tablet 00:00: 05:59 mouth [place] 00 :00 daily for Medical 30 days. Branch clopidogreL 2020-11- No [id number] 75mg Take 1 [facility] 75 mg 01-04 tablet by ity of tablet 00:00: 05:59 mouth [place] 00 :00 daily for Medical 30 days. Branch furosemide 2020-11- No [id number] 20mg Take 1 [facility] 20 mg 01-04 [...] 2-18 by mouth ity of 18:25: at [place] 21 bedtime. Medical Branch atorvastati 2020-11 Yes 40mg Take 40 mg Univers n 40 mg 2-18 by mouth ity of tablet 18:25: at [place] 21 bedtime. Medical Branch trazodone 2020-11 Yes [...] 2-18 by mouth ity of 18:25: at [place] 21 bedtime. Medical Branch atorvastati 2020-11 Yes 40mg Take 40 mg Univers n 40 mg 2-18 by mouth ity of tablet 18:25: at [place] 21 bedtime. Medical Branch trazodone 2020-11 Yes [...] 2-18 by mouth ity of 18:25: at [place] 21 bedtime. Medical Branch atorvastati 2020-11 Yes 40mg Take 40 mg Univers n 40 mg 2-18 by mouth ity of tablet 18:25: at [place] 21 bedtime. Medical Branch metoprolol 2020-11 Yes [...] Until Discontinu ed, Routine QUEtiapine 2020-11 Yes [id number] 25mg Take 1 [facility] 25 mg 2-18 tablet by ity of tablet 00:00: mouth at [place] 00 bedtime as Medical needed Branch (agitation /insomnia) . QUEtiapine 2020-11 Yes [id number] 25mg Take 1 [facility] 25 mg 2-18 tablet by ity of tablet 00:00: mouth at [place] 00 bedtime as Medical needed Branch (agitation /insomnia) . QUEtiapine 2020-11 Yes [id number] 25mg Take 1 [facility] 25 mg 2-18 tablet by ity of tablet 00:00: mouth at [place] 00 bedtime as Medical needed Branch (agitation /insomnia) . QUEtiapine 2020-11 Yes [id number] 25mg Take 1 [facility] 25 mg 2-18 tablet by ity of tablet 00:00: mouth at [place] 00 bedtime as Medical needed Branch (agitation /insomnia) . QUEtiapine 2020-11 Yes [id number] 25mg Take 1 [facility] 25 mg 2-18 tablet by ity of tablet 00:00: mouth at [place] 00 bedtime as Medical needed Branch (agitation /insomnia) . metoprolol 2020-11 Yes 25mg Q.5D Take 25 mg M ethodi succinate 2-[address] XL 00:00: (two) Hospita (TOPROL-XL) 00 times a l 25 mg 24 hr day. tablet QUEtiapine 2020-11 Yes [id number] 25mg Take 1 [facility] 25 mg 2-18 tablet by ity of tablet 00:00: mouth at [place] 00 bedtime as Medical needed Branch (agitation /insomnia) . QUEtiapine 2020-11 Yes [id number] 25mg Take 1 [facility] 25 mg 2-18 tablet by ity of tablet 00:00: mouth at [place] 00 bedtime as Medical needed Branch (agitation /insomnia) . metoprolol 2020-11 Yes 25mg Q.5D Take 25 mg M ethodi succinate 2-[address] XL 00:00: (two) Hospita (TOPROL-XL) 00 times a l 25 mg 24 hr day. tablet QUEtiapine 2020-11- No [id number] 25mg Take 1 [facility] 25 mg 2-18 - tablet by ity of tablet 00:00: 00:00 mouth at [place] 00 :00 bedtime as Medical needed Branch (agitation /insomnia) . isosorbide 2020-11- No [id number] 60mg Take 1 [facility] mononitrate 2-18 -18 tablet by it y of 60 mg 24 hr 00:00: 05:59 mouth 2 [place] tablet 00 :00 (two) Medical times Branch daily for 30 days. metoprolol 2020-11- No [id number] 37.5mg Take 1.5 Univers succinate 2-18 - tablets by ity of XL 25 mg 24 00:00: 05:59 mouth 2 [place] hr tablet 00 :00 (two) Medical times Branch daily for 30 days. isosorbide 2020-11- No [id number] 60mg Take 1 [facility] mononitrate 2-18 - tablet by it y of 60 mg 24 hr 00:00: 05:59 mouth 2 [place] tablet 00 :00 (two) Medical times Branch daily for 30 days. metoprolol 2020-11- No [id number] 37.5mg Take 1.5 Univers succinate 2-18 12-03 tablets by ity of XL 25 mg 24 00:00: 05:59 mouth 2 [place] hr tablet 00 :00 (two) Medical times Branch daily for 30 days. isosorbide 2020-11- No [id number] 60mg Take 1 [facility] mononitrate 2-18 - tablet by it y of 60 mg 24 hr 00:00: 05:59 mouth 2 [place] tablet 00 :00 (two) Medical times Branch daily for 30 days. metoprolol 2020-11- No [id number] 37.5mg Take 1.5 Univers succinate 2-18 -18 tablets by ity of XL 25 mg 24 00:00: 05:59 mouth 2 [place] hr tablet 00 :00 (two) Medical times Branch daily for 30 days. aspirin 2020-11 Yes 81mg 81 mg, Univers chewable 2-17 Oral, ity of tablet 81 15:00: DAILY, [place] mg 00 First dose Medical on [facility] Branch 11/01/21 at 0900, Until Discontinu ed, Routine furosemide 2020-11 Yes 20mg 20 mg, Unive rs (LASIX) 2-17 Oral, ity of tablet 20 14:30: DAILY, [place] mg 00 First dose Medical on [facility] Branch 11/01/21 at 0830, Until Discontinu ed, Routine metoprolol 2020-11- No 25mg 25 mg, Univ ers succinate 2-17 -18 Oral, BID, ity of XL (TOPROL 14:30: 14:17 First dose [place] XL) tablet 00 :36 on [facility] 25 mg 11/01/21 Branch at 0830, Until Discontinu ed, Routine QUEtiapine 2020-11 Yes 25mg 25 mg, Unive rs (SEROQUEL) 2-17 Oral, ity of tablet 25 09:22: QHSPRN, [place] mg [address] [facility] Branch 11/01/21 at 0322, Until Discontinu ed, Routine, agitation/ insomnia donepeziL 2020-11 Yes 5mg 5 mg, Univers (ARICEPT) 2-17 Oral, QHS, ity of tablet 5 mg 03:00: First dose [place] 00 on [facility] 10/31/21 Branch at 2100, Until Discontinu ed, Routine atorvastati 2020-11 Yes 40mg 40 mg, Univ ers n (LIPITOR) 2-17 Oral, QHS, it y of tablet 40 03:00: First dose [place] mg 00 on [facility] 10/31/21 Branch at 2100, Until Discontinu ed, Routine clopidogreL 2020-11 Yes 75mg 75 mg, Univ ers (PLAVIX) 2-16 Oral, ity of tablet 75 23:30: DAILY, [place] mg 00 First dose Medical on [facility] Branch 10/31/21 at 1730, Until Discontinu ed, Routine sulfur 2020-11- No [id number] 5mL 5 mL, Unive rs hexafluorid 2-10-31 Intravenou i ty of e microsphr 17:00: 17:00 s, ONCE, 1 [place] (LUMASON) 00 :00 dose, On Medica l injection 5 [facility] Branch mL 10/31/21 at 1100, Routine
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 morpHINE 2020-11 2mg 2 mg, Slow Un mel injection 2 2-16 12-17 IV Push, ity of mg 07:36: 05:31 Q4HPRN, [place] 09 :07 Starting Medical on [facility] Branch [...] IV Push, ity of (PF)) 05:32: Q6HPRN, [place] injection 4 10 Starting Medi birdie mg on Thu Branch 10/30/21 at 2332, Until Discontinu ed, Routine, Nausea and Vomiting (N/V) acetaminoph 2020-11 Yes 650mg 650 mg, Un mel en 2-16 Oral, ity of (TYLENOL) 05:31: Q6HPRN, [place] tablet 650 56 Starting Medic al mg on Wed Branch 10/30/21 at 2331, Until Discontinu ed, Routine, Pain (scale 1-3) acetaminoph 2020-11 Yes [id number] 1{tbl} 1 tablet, Univers en-codeine 2-16 Oral, ity of (TYLENOL 05:29: Q6HPRN, [place] #3) 300-30 29 Starting Medic al mg tablet 1 on Thu Branch tablet 10/30/21 at 2329, Until Discontinu ed, Routine, Pain (scale 4-6), Pain (scale 7-10) sodium 2020-11 Yes 5mL 5 mL, Univers chloride 2-16 Intravenou ity o f (NS) 01:21: s, PRN, [place] injection 5 02 Starting Medi birdie mL on Wed Branch 10/30/21 at 1921, Until Discontinu ed, Routine, IV line flushing Januvia 50 2020-11 Yes 50mg QD Take 50 mg M ethodi mg tablet 2-[address] 00:00: daily. Hospita 00 l Januvia 50 2020-11 Yes 50mg QD Take 50 mg M ethodi mg tablet 2-[address] 00:00: daily. Hospita 00 l morpHINE No 4mg 4 mg, Slow Un mel injection 4 04-25-10 IV Push, ity of mg 23:15: 22:23 ONCE, 1 [place] 00 :00 dose, [facility] Medical 04/25/21 at Branch 1815, STAT acetaminoph 2020- No 1{tbl} 1 tablet, Univers en-codeine -08 21-10 Oral, ity of (TYLENOL 19:00: 17:52 ONCE, 1 [place] #3) 300-30 00 :00 dose, [facility] Medi birdie mg tablet 1 04/25/21 at [facility] tablet 1400, ADAMA cyclobenzap No 10mg 10 mg, Uni vers rine 04-25-10 Oral, ONCE ity of (FLEXERIL) 19:00: 17:52 NOW, 1 [place] tablet 10 00 :00 dose, [facility] Medic al mg 04/25/21 at Branch 1400, ADAMA cyclobenzap Yes [id number] 5mg Take 1 Univers rine 5 mg 6-10 tablet by ity o f tablet 00:00: mouth 3 [place] 00 (three) Medical times Branch daily. cyclobenzap Yes [id number] 5mg Take 1 Univers rine 5 mg 6-10 tablet by ity o f tablet 00:00: mouth 3 [place] 00 (three) Medical times Branch daily. cyclobenzap Yes [id number] 5mg Take 1 Univers rine 5 mg 6-10 tablet by ity o f tablet 00:00: mouth 3 [place] 00 (three) Medical times Branch daily. acetaminoph 0 Yes [id number] 1{tbl} Take 1 Un mel en-codeine 6-10 tablet by ity of 300-30 mg 00:00: mouth [place] tablet 00 every 6 Medical (six) Branch hours as needed for Pain (scale 4-6). Indication s: acute pain, left sided low back pain cyclobenzap Yes [id number] 5mg Take 1 Univers rine 5 mg [...] sided low back pain cyclobenzap 0 Yes [id number] 5mg Take 1 Univers rine 5 mg 6-10 tablet by ity o f tablet 00:00: mouth 3 [place] 00 (three) Medical times Branch daily. cyclobenzap 2021- No [id number] 5mg Take 1 Univers rine 5 mg 6-10 04-16 tablet by ity of tablet 00:00: 00:00 mouth 3 [place] 00 :00 (three) Medical times Branch daily. acetaminoph 2020- [...] U-100) 00 First dose Medical injection on [facility] Branch 30 Units 03/24/20 at 0900, Until Discontinu ed clopidogreL 2020-0 Yes 75mg 75 mg, Univ ers (PLAVIX) 03-24 Oral, ity of tablet 75 14:00: DAILY, [place] mg 00 First dose Medical on [facility] Branch 03/24/20 at 0900, Until Discontinu ed, Routine insulin 2020-0 Yes 30U 30 Units, Unive rs glargine -09 Subcutaneo ity o f (LANTUS 14:00: us, DAILY, [place] U-100) 00 First dose Medical injection on [facility] Branch 30 Units 03/24/20 at 0900, Until Discontinu ed clopidogreL 2020-0 Yes 75mg 75 mg, Univ ers (PLAVIX) 5-09 Oral, ity of tablet 75 14:00: DAILY, [place] mg 00 First dose Medical on Sat Branch 03/24/20 at 0900, Until Discontinu ed, Routine MULTIVITAMI 2020-0 2020- No Take by Un mel N ORAL 5- 05-08 mouth. ity of 03:38: 00:00 [place] 54 :00 Medical Branch MULTIVITAMI 2020-0 Yes Take by Uni vers N ORAL 5-09 mouth. ity of 02:01: [...] Discontinu ed, Routine aspirin 81 2020-0 Yes [id number] 81mg Take 1 U nivers mg chewable 5-09 tablet by ity of tablet 00:00: mouth [place] 00 daily with Medical breakfast. Branch furosemide 2020-0 Yes [id number] 20mg Take 1 U nivers 20 mg 5-09 tablet by ity of tablet 00:00: mouth [place] 00 daily. [facility] Branch aspirin 81 2020-0 Yes [id number] 81mg Take 1 U nivers mg chewable 5-09 tablet by ity of tablet 00:00: mouth [place] 00 daily with Medical breakfast. Branch furosemide 2020-0 Yes [id number] 20mg Take 1 U nivers 20 mg 5-09 tablet by ity of tablet 00:00: mouth [place] 00 daily. Medical Branch aspirin 81 2020-0 Yes [id number] 81mg Take 1 U nivers mg chewable 5-09 tablet by ity of tablet 00:00: mouth [place] 00 daily with Medical breakfast. Branch furosemide 2020-0 Yes [id number] 20mg Take 1 U nivers 20 mg 5-09 tablet by ity of tablet 00:00: mouth [place] 00 daily. Medical Branch aspirin 81 2020-0 Yes [id number] 81mg Take 1 U nivers mg chewable 5-09 tablet by ity of tablet 00:00: mouth [place] 00 daily with Medical breakfast. Branch furosemide 2020-0 Yes [id number] 20mg Take 1 U nivers 20 mg 5-09 tablet by ity of tablet 00:00: mouth [place] 00 daily. Medical Branch aspirin 81 2020-0 Yes [id number] 81mg Take 1 U nivers mg chewable 5-09 tablet by ity of tablet 00:00: mouth [place] 00 daily with Medical breakfast. Branch furosemide 2020-0 Yes [id number] 20mg Take 1 U nivers 20 mg 5-09 tablet by ity of tablet 00:00: mouth [place] 00 daily. Medical Branch aspirin 81 2020-0 Yes [id number] 81mg Take 1 U nivers mg chewable 5-09 tablet by ity of tablet 00:00: mouth [place] 00 daily with Medical breakfast. Branch furosemide 2020-0 Yes [id number] 20mg Take 1 U nivers 20 mg 5-09 tablet by ity of tablet 00:00: mouth [place] 00 daily. Medical Branch aspirin 81 2020-0 Yes [id number] 81mg Take 1 U nivers mg chewable 5-09 tablet by ity of tablet 00:00: mouth [place] 00 daily with Medical breakfast. Branch furosemide 2020-0 Yes [id number] 20mg Take 1 U nivers 20 mg 5-09 tablet by ity of tablet 00:00: mouth [place] 00 daily. Medical Branch aspirin 81 2020-0 Yes [id number] 81mg Take 1 U nivers mg chewable 5-09 tablet by ity of tablet 00:00: mouth [place] 00 daily with Medical breakfast. Branch furosemide 2020-0 Yes [id number] 20mg Take 1 U nivers 20 mg 5-09 tablet by ity of tablet 00:00: mouth [place] 00 daily. Medical Branch aspirin 81 2020-0 Yes [id number] 81mg Take 1 U nivers mg chewable 5-09 tablet by ity of tablet 00:00: mouth [place] 00 daily with Medical breakfast. Branch furosemide 2020-0 Yes [id number] 20mg Take 1 U nivers 20 mg 5-09 tablet by ity of tablet 00:00: mouth [place] 00 daily. Medical Branch aspirin 81 2020-0 2021- No [id number] 81mg Take 1 Univers mg chewable 5-09 12-18 tablet by it y of tablet 00:00: 00:00 mouth [place] 00 :00 daily with Medical breakfast. Branch furosemide 2019-2020- No [id number] 20mg Take 1 [facility] 20 mg 03-24 tablet by ity of tablet 00:00: 00:00 mouth [place] 00 :00 daily. Medical Branch isosorbide 2019-2019- No [id number] 90mg Take 3 Univers mononitrate 03-24-08 tablets by i ty of 30 mg 24 hr 00:00: 00:00 mouth [place] tablet 00 :00 daily. [facility] Branch isosorbide 2019- No [id number] 90mg Take 3 Univers mononitrate 03-24-08 tablets by i ty of 30 mg 24 hr 00:00: 00:00 mouth [place] tablet 00 :00 daily. Medical Branch maalox/lido 2019-2019- No 5mL 5 mL, [facility] sydni 2 03-23-08 Oral, ity of %viscous 20:45: 20:56 ONCE, 1 [place] 1: 00 :00 dose, Fri Medical suspension 03/23/20 at [facility] (COMPOUNDED 1545, ) Routine maalox/lido 2019-0 2019- No 5mL 5 mL, [facility] 2 03-23-08 Oral, ity of %viscous 20:45: 20:56 ONCE, 1 [place] 1: 00 :00 dose, Fri Medical suspension 03/23/20 at [facility] (COMPOUNDED 1545, ) Routine acetaminoph 2020-0 [...] No 1{patch 1 Patch, Univers (LIDODERM) 03-23 05- } Topical, ity of 5 % (700 [...] 1 [place] mg 00 :00 dose, [facility] Medical 03/23/20 at Branch 0330, Routine clopidogreL 2020-0 2020- No 300mg 300 mg, U nivers (PLAVIX) 03-23 Oral, ity of tablet 300 08:30: 07:48 ONCE, 1 [place] mg 00 :00 dose, [facility] Medical 03/23/20 at Branch 0330, Routine morpHINE 2020-0 Yes 2mg 2 mg, Slow Uni vers injection 2 5-08 IV Push, ity of mg 07:59: Q4HPRN, [place] [address] Starting [facility] 03/23/20 Branch at 0259, Until Discontinu ed, Routine, Chest pain morpHINE 2020-0 Yes 2mg 2 mg, Slow Uni vers injection 2 5-08 IV Push, ity of mg 07:59: Q4HPRN, [address] 03/23/20 [place] at 0259, Until Discontinu ed, Routine, Chest pain magnesium 2020-0 2020- No 2g 2 g, IV Univ ers sulfate in 03-23 Piggyback, it y of water 2 07:45: 07:49 ONCE, 1 [place] gram/50 mL 00 :00 dose, Fri Medi birdie (4 %) 03/23/20 at [place] infusion 2 0245, g Routine KCL 2020-0 2020- No 40meq 40 mEq, Univers (KLOR-CON 03-23 Oral, ity of M20) tablet 07:45: 07:27 ONCE, 1 [place] 40 mEq 00 :00 dose, [facility] Medical 03/23/20 at Branch 0245, Routine magnesium [...] 2020- No Take by Un mel ann, 03-23- mouth. ity of Vitamin D3, [...] 2020- No Take by Un mel ann, 03-23-07 mouth. ity of Vitamin D3, [...] 03-23 Oral, ity of (TYLENOL) 02:51: Q6HPRN, [place] tablet 650 29 Starting Medic al mg [facility] 03/22/20 Branch at 2151, Until Discontinu ed, Routine, Pain (scale 1-3) acetaminoph 2020-0 Yes 650mg 650 mg, Un mel en 03-23 Oral, ity of (TYLENOL) 02:51: Q6HPRN, [place] tablet 650 29 Starting Medic al mg [facility] 03/22/20 Branch at 2151, Until Discontinu ed, Routine, Pain (scale 1-3) nitroglycer 2020-0 Yes .4mg 0.4 mg, Uni vers in 03-23 Sublingual ity of (NITROSTAT) 02:38: , Q5MIN [place] as sublingual 00 PRN, 3 Medical tablet 0.4 doses, Branch mg Starting [facility] 03/22/20 at 2138, Until Discontinu ed, ADAMA, Chest pain nitroglycer 2020-0 Yes .4mg 0.4 mg, Uni vers in 03-23 Sublingual ity of (NITROSTAT) 02:38: , Q5MIN [place] sublingual 00 PRN, 3 Medical tablet 0.4 doses, Branch mg Starting [facility] 03/22/20 at 2138, Until Discontinu ed, ADAMA, Chest pain aspirin 2020-0 2020- No 324mg 324 mg, Unive rs chewable 03-23- Oral, ity of tablet 324 02:37: 02:51 ONCE, 1 [place] mg 00 :00 dose, [facility] 03/22/20 at Branch 2145, ADAMA aspirin 2020-0 2020- No 324mg 324 mg, Unive rs chewable 03-23- Oral, ity of tablet 324 02:37: 02:51 ONCE, 1 [place] mg 00 :00 dose, [facility] 03/22/20 at Branch 2145, ADAMA isosorbide 2020-0 Yes [id number] 90mg Take 1.5 Univers mononitrate 5-08 tablets by it y of 60 mg 24 hr 00:00: mouth [place] tablet 00 daily. [facility] isosorbide 2020-0 Yes [id number] 90mg Take 1.5 Univers mononitrate 5-08 tablets by it y of 60 mg 24 hr 00:00: mouth [place] tablet 00 daily. [facility] isosorbide 2020-0 Yes [id number] 90mg Take 1.5 Univers mononitrate 5-08 tablets by it y of 60 mg 24 hr 00:00: mouth [place] tablet 00 daily. [facility] isosorbide 2020-0 Yes [id number] 90mg Take 1.5 Univers mononitrate 5-08 tablets by it y of 60 mg 24 hr 00:00: mouth [place] tablet 00 daily. [facility] isosorbide 2020-0 Yes [id number] 90mg Take 1.5 Univers mononitrate 5-08 tablets by it y of 60 mg 24 hr 00:00: mouth [place] tablet 00 daily. [facility] isosorbide 2020-0 Yes [id number] 90mg Take 1.5 Univers mononitrate 5-08 tablets by it y of 60 mg 24 hr 00:00: mouth [place] tablet 00 daily. [facility] isosorbide 2020-0 Yes [id number] 90mg Take 1.5 Univers mononitrate 5-08 tablets by it y of 60 mg 24 hr 00:00: mouth [place] tablet 00 daily. [facility] isosorbide 2020-0 Yes [id number] 90mg Take 1.5 Univers mononitrate 5-08 tablets by it y of 60 mg 24 hr 00:00: mouth [place] tablet 00 daily. [facility] isosorbide 2020-0 Yes [id number] 90mg Take 1.5 Univers mononitrate 5-08 tablets by it y of 60 mg 24 hr 00:00: mouth [place] tablet 00 daily. [facility] isosorbide 2020-0 2020- No [id number] 90mg Take 1.5 Univers mononitrate 5-08 12-18 tablets by i ty of 60 mg 24 hr 00:00: 00:00 mouth [place] tablet 00 :00 daily. [facility] acetaminoph 2019-0 2020- No [id number] 975mg Take 3 Univers en 325 mg 5-08 05-19 tablets by ity of tablet 00:00: 04:59 mouth [place] 00 :00 every 8 Medical (eight) Branch hours for 10 days. acetaminoph 2020-0 2020- No [id number] 975mg Take 3 Univers en 325 mg 5-08 05-19 tablets by ity of tablet 00:00: 04:59 mouth [place] 00 :00 every 8 Medical (eight) Branch hours for 10 days. acetaminoph 2020-0 2020- No [id number] 975mg Take 3 Univers en 325 mg 5-08 05-19 tablets by ity of tablet 00:00: 04:59 mouth [place] 00 :00 every 8 Medical (eight) Branch hours for 10 days. acetaminoph 2020-0 2020- No [id number] 975mg Take 3 Univers en 325 mg 5-08 05-19 tablets by ity of tablet 00:00: 04:59 mouth [place] 00 :00 every 8 Medical (eight) Branch hours for 10 days. acetaminoph 2020-0 2020- No [id number] 975mg Take 3 Univers en 325 mg 5-08 05-19 tablets by ity of tablet 00:00: 04:59 mouth [place] 00 :00 every 8 Medical (eight) Branch hours for 10 days. lidocaine 5 2020- No [id number] 1{patch Apply 1 [facility] % (700 5-08 05-09 } Patch to ity of mg/patch) 00:00: 04:59 area[place] patch 00 :00 once now Medical for 1 Branch dose. lidocaine 5 2020- No [id number] 1{patch Apply 1 [facility] % (700 5-08 05-09 } Patch to ity of mg/patch) 00:00: 04:59 area(s[place] patch 00 :00 once now Medical for 1 Branch dose. lidocaine 5 0 2020- No [id number] 1{patch Apply 1 [facility] % (700 5-08 05-08 } Patch to ity of mg/patch) 00:00: 00:00 area(s[place] patch 00 :00 once now Medical for 1 Branch dose. lidocaine 5 2020- No [id number] 1{patch Apply 1 [facility] % (700 5-08 05-08 } Patch to ity of mg/patch) 00:00: 00:00 area(s[place] patch 00 :00 once now Medical for 1 Branch dose. donepeziL 2020-0 Yes 5mg QD Take 5 mg [facility] (Aricept) 5 5-[address] MG tablet 00:00: nightly - [facility] 00 one time. l donepeziL 2020-0 Yes 5mg QD Take 5 mg [facility] (Aricept) 5 5-[address] MG tablet 00:00: nightly - [facility] 00 one time. l glipiZIDE 2020-0 Yes 5mg 5 mg, [facility] (GLUCOTROL) 4-23 Oral, it[facility] of tablet 5 mg 14:00: DAILY, [place] 00 First [place] Medical on [facility] 03/08/20 at 0900, Until Discontinu ed, Routine spironolact 2019- 2020- No [id number] 12.5mg Take 0.5 [facility] one 25 mg 4-23 05-24 tablets by ity of tablet 00:00: 04:59 mouth [place] 00 :00 daily for Medical 30 days. Branch spironolact 2020- 2020- No [id number] 12.5mg Take 0.5 [facility] one 25 mg 4-23 05-24 tablets by ity of tablet 00:00: 04:59 mouth [place] 00 :00 daily for Medical 30 days. Branch spironolact 2019-0 2020- No [id number] 12.5mg Take 0.5 [facility] one 25 mg 4-23 05-24 tablets by ity of tablet 00:00: 04:59 mouth [place] 00 :00 daily for Medical 30 days. Branch spironolact 2020-0 2020- No [id number] 12.5mg Take 0.5 [facility] one 25 mg 4-23 05-07 tablets by ity of tablet 00:00: 00:00 mouth [place] 00 :00 daily for Medical 30 days. Branch spironolact 2020- 2020- No [id number] 12.5mg Take 0.5 [facility] one 25 mg [...] 2020-0 Yes Take by Uni vers ann, 4-22 mouth. ity of Vitamin D3, 23:46: [place] 2,000 unit 10 Medical capsule Branch MULTIVITAMI 2020-0 Yes Take by Uni vers N ORAL 4-22 mouth. ity of 23:46: [...] 4-22 mouth. ity of complex and 23:46: [place] C (B 10 Medical COMPLEX-VIT Branch RAZA C-FOLIC ACID ORAL) Cholecalcif 2020-0 Yes Take by Uni vers ann, -22 mouth. ity of Vitamin D3, 23:46: [place] 2,000 unit 10 Medical capsule Branch MULTIVITAMI 2020-0 Yes Take by Uni vers N ORAL 4-22 mouth. ity of 23:46: [...] -22 mouth. ity of complex and 23:46: [place] C ( 10 Medical COMPLEX-VIT Branch RAZA C-FOLIC ACID ORAL) Cholecalcif 2019-0 Yes Take by Uni vers ann, -22 mouth. ity of Vitamin D3, 23:46: [place] 2,000 unit 10 Medical capsule Branch MULTIVITAMI 2020-0 Yes Take by Uni vers N ORAL 4-22 mouth. ity of 23:46: [place] 10 Medical Branch thiamine 2019-0 Yes 100mg [...] of 12.5 mg 20:15: 00:00 mouth 2 [place] 29 :00 (two) Medical times Branch daily. aspirin 81 2019-0 2020- No 81mg Take 81 mg [facility] mg chewable 03-07-22 by mouth ity of tablet 20:15: 00:00 daily. [place] 29 :00 Medical Branch atorvastati 2020-0 2020- No 40mg Take 40 mg Univers n 40 mg 03-07- by mouth ity of tablet 20:15: 00:00 at [place] 29 :00 bedtime. Medical Branch temazepam 2019-0 Yes 15mg 15 mg, Univer s (RESTORIL) -22 Oral, ity of capsule 15 01:55: QHSPRN, [place] mg 38 Starting Medical Tue Branch 03/06/20 at 2054, Until Discontinu ed, Routine, Insomnia Insulin 2019-0 Yes [id number] 10U inject 10 [facility] Glargine 4-22 Units ity of 100 unit/mL 00:00: under the [place] (3 mL) 00 skin at Medical injection bedtime. Branch temazepam 2020-0 Yes [id number] 15mg Take 1 Un mel 15 mg 4-22 capsule by ity of capsule 00:00: mouth at [place] 00 bedtime as Medical needed for Branch Insomnia. furosemide 2020-0 Yes [id number] 40mg Take 1 [facility] 40 mg 4-22 tablet by ity of tablet 00:00: mouth [place] 00 every Medical morning Branch and evening. Magnesium 2020-0 Yes [id number] 400mg Take 400 [facility] Oxide 420 4-22 mg by ity of mg Tab 00:00: mouth [place] 00 daily. Medical Branch potassium 2020-0 Yes [id number] 20meq Take 20 [facility] chloride 20 4-22 mEq by ity of mEq packet 00:00: mouth [place] 00 daily. Medical Take with Branch lasix in the morning isosorbide 2020-0 Yes [id number] 15mg Take 0.5 [facility] mononitrate 4-22 tablets by it y of 30 mg 24 hr 00:00: mouth [place] tablet 00 daily. Medical Hold if Branch systolic blood pressure less than 120 Insulin 2020-0 Yes [id number] 10U inject 10 [facility] Glargine 4-22 Units ity of 100 unit/mL 00:00: under the [place] (3 mL) 00 skin at Medical injection bedtime. Branch temazepam 2020-0 Yes [id number] 15mg Take 1 Un mel 15 mg 4-22 capsule by ity of capsule 00:00: mouth at [place] 00 bedtime as Medical needed for Branch Insomnia. furosemide 2020-0 Yes [id number] 40mg Take 1 [facility] 40 mg 4-22 tablet by ity of tablet 00:00: mouth [place] 00 every Medical morning Branch and evening. Magnesium 2020-0 Yes [id number] 400mg Take 400 [facility] Oxide 420 4-22 mg by ity of mg Tab 00:00: mouth [place] 00 daily. Medical Branch potassium 2020-0 Yes [id number] 20meq Take 20 [facility] chloride 20 4-22 mEq by ity of mEq packet 00:00: mouth [place] 00 daily. Medical Take with Branch lasix in the morning isosorbide 2020-0 Yes [id number] 15mg Take 0.5 [facility] mononitrate 4-22 tablets by it y of 30 mg 24 hr 00:00: mouth [place] tablet 00 daily. Medical Hold if Branch systolic blood pressure less than 120 Insulin 2020-0 Yes [id number] 10U inject 10 [facility] Glargine 4-22 Units ity of 100 unit/mL 00:00: under the [place] (3 mL) 00 skin at Medical injection bedtime. Branch temazepam 2020-0 Yes [id number] 15mg Take 1 Un mel 15 mg 4-22 capsule by ity of capsule 00:00: mouth at [place] 00 bedtime as Medical needed for Branch Insomnia. furosemide 2020-0 Yes [id number] 40mg Take 1 [facility] 40 mg 4-22 tablet by ity of tablet 00:00: mouth [place] 00 every Medical morning Branch and evening. Magnesium 2020-0 Yes [id number] 400mg Take 400 [facility] Oxide 420 4-22 mg by ity of mg Tab 00:00: mouth [place] 00 daily. Medical Branch potassium 2020-0 Yes [id number] 20meq Take 20 [facility] chloride 20 4-22 mEq by ity of mEq packet 00:00: mouth [place] 00 daily. Medical Take with Branch lasix in the morning isosorbide 2020-0 Yes [id number] 15mg Take 0.5 [facility] mononitrate 4-22 tablets by it y of 30 mg 24 hr 00:00: mouth [place] tablet 00 daily. Medical Hold if Branch systolic blood pressure less than 120 Insulin 2020-0 Yes [id number] 10U inject 10 [facility] Glargine 4-22 Units ity of 100 unit/mL 00:00: under the [place] (3 mL) 00 skin at Medical injection bedtime. Branch Magnesium 2020-0 Yes [id number] 400mg Take 400 [facility] Oxide 420 4-22 mg by ity of mg Tab 00:00: mouth [place] 00 daily. Medical Branch vitamin 2020-0 2020- No [id number] 1000ug Take 1 [facility] B-12 1,000 4-22 07-22 tablet by ity of mcg tablet 00:00: 04:59 mouth [place] 00 :00 daily for Medical 90 days. Branch vitamin 2020-0 2020- No [id number] 1000ug Take 1 Univers B-12 1,000 4-22 07-22 tablet by ity of mcg tablet 00:00: 04:59 mouth [place] 00 :00 daily for Medical 90 days. Branch vitamin 2020-0 2020- No [id number] 1000ug Take 1 Univers B-12 1,000 4-22 07-22 tablet by ity of mcg tablet 00:00: 04:59 mouth [place] 00 :00 daily for Medical 90 days. Branch vitamin 2020- No [id number] 1000ug Take 1 [facility] B-12 1,000 4-06 06-22 tablet by ity of mcg tablet 00:00: 04:59 mouth [place] 00 :00 daily for Medical 90 days. Branch glipiZIDE 5 2019- No [id number] 2.5mg Take 0.5 [facility] mg tablet 03-07-23 tablets by ity of 00:00: 04:59 mouth 2 [place] 00 :00 (two) Medical times Branch daily before breakfast and dinner for 30 days. metoprolol 2019- No [id number] 25mg Take 1 [facility] succinate - 05-23 tablet by ity of XL 25 mg 24 00:00: 04:59 mouth 2 [place] hr tablet 00 :00 (two) Medical times Branch daily for 30 days. OLANZapine 2019- No [id number] 2.5mg Take 1 [facility] 2.5 mg -06 04-23 tablet by ity of tablet 00:00: 04:59 mouth at [place] 00 :00 bedtime Medical for 30 Branch days. ranolazine 2019- No [id number] 1000mg Take 2 [facility] 500 mg 12 -06 04-23 tablets by ity of hr tablet 00:00: 04:59 mouth [place] 00 :00 every 12 Medical (twelve) Branch hours for 30 days. aspirin 81 2020- No [id number] 81mg Take 1 [facility] mg chewable -06 04-23 tablet by it y of tablet 00:00: 04:59 mouth [place] 00 :00 daily with Medical breakfast Branch for 30 days. atorvastati 2020- No [id number] 40mg Take 1 Univers n 40 mg -06 04-23 tablet by ity of tablet 00:00: 04:59 mouth at [place] 00 :00 bedtime Medical for 30 Branch days. glipiZIDE 5 2020- No [id number] 2.5mg Take 0.5 [facility] mg tablet 03-07 05-23 tablets by ity of 00:00: 04:59 mouth 2 [place] 00 :00 (two) Medical times Branch daily before breakfast and dinner for 30 days. metoprolol 2020- No [id number] 25mg Take 1 [facility] succinate 4-22 05-23 tablet by ity of XL 25 mg 24 00:00: 04:59 mouth 2 [place] hr tablet 00 :00 (two) Medical times Branch daily for 30 days. OLANZapine 2020-0 2020- No [id number] 2.5mg Take 1 [facility] 2.5 mg 4- 05-23 tablet by ity of tablet 00:00: 04:59 mouth at [place] 00 :00 bedtime Medical for 30 Branch days. ranolazine 2020-0 2020- No [id number] 1000mg Take 2 [facility] 500 mg 12 4-22 05-23 tablets by ity of hr tablet 00:00: 04:59 mouth [place] 00 :00 every 12 Medical (twelve) Branch hours for 30 days. aspirin 81 2020-0 2020- No [id number] 81mg Take 1 [facility] mg chewable 4- 05-23 tablet by it y of tablet 00:00: 04:59 mouth [place] 00 :00 daily with Medical breakfast Branch for 30 days. atorvastati 2020-0 2020- No [id number] 40mg Take 1 [facility] n 40 mg -06 04-23 tablet by ity of tablet 00:00: 04:59 mouth at [place] 00 :00 bedtime Medical for 30 Branch days. glipiZIDE 5 2019-0 2020- No [id number] 2.5mg Take 0.5 [facility] mg tablet 03-07-23 tablets by ity of 00:00: 04:59 mouth 2 [place] 00 :00 (two) Medical times Branch daily before breakfast and dinner for 30 days. metoprolol 2020-0 2020- No [id number] 25mg Take 1 [facility] succinate -06 04-23 tablet by ity of XL 25 mg 24 00:00: 04:59 mouth 2 [place] hr tablet 00 :00 (two) Medical times Branch daily for 30 days. OLANZapine 2020-0 2020- No [id number] 2.5mg Take 1 [facility] 2.5 mg 4- 05-23 tablet by ity of tablet 00:00: 04:59 mouth at [place] 00 :00 bedtime Medical for 30 Branch days. ranolazine 2020-0 2020- No [id number] 1000mg Take 2 [facility] 500 mg 12 4-22 05-23 tablets by ity of hr tablet 00:00: 04:59 mouth [place] 00 :00 every 12 Medical (twelve) Branch hours for 30 days. aspirin 81 2020-0 2020- No [id number] 81mg Take 1 [facility] mg chewable - 05-23 tablet by it y of tablet 00:00: 04:59 mouth [place] 00 :00 daily with Medical breakfast Branch for 30 days. atorvastati 2020- No [id number] 40mg Take 1 [facility] n 40 mg -06 04-23 tablet by ity of tablet 00:00: 04:59 mouth at [place] 00 :00 bedtime Medical for 30 Branch days. glipiZIDE 5 2019- No [id number] 2.5mg Take 0.5 [facility] mg tablet 03-07-23 tablets by ity of 00:00: 04:59 mouth 2 [place] 00 :00 (two) Medical times Branch daily before breakfast and dinner for 30 days. metoprolol 2020- No [id number] 25mg Take 1 [facility] succinate 03-07-23 tablet by ity of XL 25 mg 24 00:00: 04:59 mouth 2 [place] hr tablet 00 :00 (two) Medical times Branch daily for 30 days. ranolazine 2019- No [id number] 1000mg Take 2 [facility] 500 mg 12 03-07-23 tablets by ity of hr tablet 00:00: 04:59 mouth [place] 00 :00 every 12 Medical (twelve) Branch hours for 30 days. atorvastati 2019- No [id number] 40mg Take 1 [facility] n 40 mg -06 04-23 tablet by ity of tablet 00:00: 04:59 mouth at [place] 00 :00 bedtime Medical for 30 Branch days. furosemide 2019- 2020- No [id number] 40mg Take 1 [facility] 40 mg - 05-08 tablet by ity of tablet 00:00: 00:00 mouth [place] 00 :00 every Medical morning Branch and evening. aspirin 81 2019- 2020- No [id number] 81mg Take 1 [facility] mg chewable - 05-08 tablet by it y of tablet 00:00: 00:00 mouth [place] 00 :00 daily with Medical breakfast Branch for 30 days. isosorbide 2019- 2020- No [id number] 15mg Take 0.5 [facility] mononitrate - 05-08 tablets by i ty of 30 mg 24 hr 00:00: 00:00 mouth [place] tablet 00 :00 daily. Medical Hold if Branch systolic blood pressure less than 120 Insulin 2019- No [id number] 10U inject 10 [facility] Glargine 03-07 05-08 Units ity of 100 unit/mL 00:00: 00:00 under the [place] (3 mL) 00 :00 skin at Medical injection bedtime. Branch glipiZIDE 5 2019- No [id number] 2.5mg Take 0.5 [facility] mg tablet 03-07 05-08 tablets by ity of 00:00: 00:00 mouth 2 [place] 00 :00 (two) Medical times Branch daily before breakfast and dinner for 30 days. metoprolol 2019- No [id number] 25mg Take 1 [facility] succinate 03-07 05-08 tablet by ity of XL 25 mg 24 00:00: 00:00 mouth 2 [place] hr tablet 00 :00 (two) Medical times Branch daily for 30 days. ranolazine 2019- No [id number] 1000mg Take 2 [facility] 500 mg 12 03-07 05-08 tablets by ity of hr tablet 00:00: 00:00 mouth [place] 00 :00 every 12 Medical (twelve) Branch hours for 30 days. furosemide 2019- No [id number] 40mg Take 1 [facility] 40 mg 03-07 05-08 tablet by ity of tablet 00:00: 00:00 mouth [place] 00 :00 every Medical morning Branch and evening. aspirin 81 2019- No [id number] 81mg Take 1 [facility] mg chewable 03-07 05-08 tablet by it y of tablet 00:00: 00:00 mouth [place] 00 :00 daily with Medical breakfast Branch for 30 days. atorvastati 2019- No [id number] 40mg Take 1 [facility] n 40 mg 03-07 05-08 tablet by ity of tablet 00:00: 00:00 mouth at [place] 00 :00 bedtime Medical for 30 Branch days. Magnesium 2019- 2020- No [id number] 400mg Take 400 [facility] Oxide 420 03-07 05-08 mg by ity of mg Tab 00:00: 00:00 mouth [place] 00 :00 daily. Medical Branch vitamin 2019- No [id number] 1000ug Take 1 [facility] B-12 1,000 -22 05-08 tablet by ity of mcg tablet 00:00: 00:00 mouth [place] 00 :00 daily for Medical 90 days. Branch isosorbide 2019- No [id number] 15mg Take 0.5 [facility] mononitrate 03-07-08 tablets by i ty of 30 mg 24 hr 00:00: 00:00 mouth [place] tablet 00 :00 daily. Medical Hold if Branch systolic blood pressure less than 120 OLANZapine 2019- No [id number] 2.5mg Take 1 [facility] 2.5 mg 03-07 05-07 tablet by ity of tablet 00:00: 00:00 mouth at [place] 00 :00 bedtime Medical for 30 Branch days. temazepam 2019- No [id number] 15mg Take 1 U nivers 15 mg 03-07 05-07 capsule by ity of capsule 00:00: 00:00 mouth at [place] 00 :00 bedtime as Medical needed for Branch Insomnia. potassium 2019- No [id number] 20meq Take 20 Univers chloride 20 - 05-07 mEq by ity o f mEq packet 00:00: 00:00 mouth [place] 00 :00 daily. Medical Take with Branch lasix in the morning OLANZapine 2019- No [id number] 2.5mg Take 1 [facility] 2.5 mg 03-07-07 tablet by ity of tablet 00:00: 00:00 mouth at [place] 00 :00 bedtime Medical for 30 Branch days. temazepam 2019- No [id number] 15mg Take 1 U nivers 15 mg 03-07 05-07 capsule by ity of capsule 00:00: 00:00 mouth at [place] 00 :00 bedtime as Medical needed for Branch Insomnia. potassium 2019- No [id number] 20meq Take 20 Univers chloride 20 - [...] First dose [place] mg 00 on [facility] 03/05/20 at Branch 2100, Until Discontinu ed, Routine insulin 2020-0 Yes 10U 10 Units, Unive rs glargine -21 Subcutaneo ity o f (LANTUS 02:00: us, QHS, [place] U-100) 00 First dose Medical injection on [facility] 10 Units 03/05/20 at 2100, Until Discontinu ed, Routine donepezil 2020-0 Yes 5mg 5 mg, Univers (ARICEPT) 4-21 Oral, QHS, ity of tablet 5 mg 02:00: First dose [place] 00 on [facility] 03/05/20 at Branch 2100, Until Discontinu ed, Routine atorvastati 2020-0 Yes 40mg 40 mg, Univ ers n (LIPITOR) 4- Oral, QHS, it y of tablet 40 02:00: First dose [place] mg 00 on [facility] 03/05/20 at Branch 2100, Until Discontinu ed, Routine isosorbide 2019-0 2020- No 30mg 30 mg, Univ ers mononitrate 03-05-20 Oral, ity of (IMDUR) 24 15:30: 15:21 ONCE, 1 [place] hr tablet 00 :00 dose, [facility] Medic al 30 mg 03/05/20 at Branch 1030, Routine spironolact 2020-0 Yes 12.5mg 12.5 mg, Univers one 4-20 Oral, ity of (ALDACTONE) 14:00: DAILY, [place] tablet 12.5 00 First dose Me dical mg on [facility] 03/05/20 at 0900, Until Discontinu ed, Routine memantine 2020-0 Yes 10mg 10 mg, Univer s (NAMENDA) 4-20 Oral, ity of tablet 10 14:00: DAILY, [place] mg 00 First dose Medical on [facility] 03/05/20 at 0900, Until Discontinu ed, Routine
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 Restricted medication : MEGADC lisinopril 2020-0 2020- No 5mg 5 mg, Unive rs (PRINIVIL,Z 03-05 04-21 Oral, ity of ESTRIL) 14:00: 13:44 DAILY, [place] tablet 5 mg 00 :01 First dose Me dical on [facility] 03/05/20 at 0900, Until Discontinu ed, Routine isosorbide 2020-0 2020- No 30mg 30 mg, Univ ers mononitrate - 04-20 Oral, ity of (IMDUR) 24 14:00: 14:20 DAILY, [place] hr tablet 00 :04 First dose Medi birdie 30 mg on [facility] 03/05/20 at 0900, Until Discontinu ed, Routine ranolazine 2020-0 Yes 500mg 500 mg, Uni vers (RANEXA) 12 -20 Oral, ity of hr tablet 13:00: Q12H, [place] 500 mg 00 First dose Medical on [facility] 03/05/20 at 0800, Until Discontinu ed, Routine metoprolol 2020-0 Yes 25mg 25 mg, Unive rs succinate -20 Oral, BID, ity of XL (TOPROL 13:00: First dose [place] XL) tablet 00 on [facility] Medical 25 mg 03/05/20 at Branch 0800, Until Discontinu ed, Routine magnesium 2020-0 Yes 400mg 400 mg, Univ ers oxide -20 Oral, BID, ity of (MAG-OX 13:00: First dose [place] 400) tablet 00 on [facility] Med[facility] l 400 mg 03/05/20 at Branch 0800, Until Discontinu ed, Routine aspirin 2020-0 Yes 81mg 81 mg, Univers chewable -20 Oral, QAM ity of tablet 81 13:00: WITH [place] mg 00 BREAKFAST, Medical First dose Branch on [facility] 03/05/20 at 0800, Until Discontinu ed, Routine Sliding 2020-0 Yes Subcutaneo Univ ers Scale -20 us, AC+HS, ity of Insulin-Reg 12:30: First dose [place] ular + Fsbg 00 on [facility] l Testing 03/05/20 at Branch 0730, Until Discontinu ed, Routine glipiZIDE 2020-0 2020- No 5mg 5 mg, Univer s (GLUCOTROL) - 04-22 Oral, ity of tablet 5 mg 12:30: 19:41 BIDAC, [place] 00 :44 First dose Medical on [facility] 03/05/20 at 0730, Until Discontinu ed, [...] IV ity of (D50W) 03:02: Push, PRN, [place] injection 42 Starting Medica l 25 mL [facility] 03/04/20 at 2202, Until Discontinu ed, ADAMA, Blood Glucose < or = 70 mg/dL and patient is unable to swallow or has mental status changes. furosemide 2020-0 Yes 40mg 40 mg, Unive rs (LASIX) 4-20 Oral, ity of tablet 40 03:00: QAM+PM, [place] mg 00 First dose Medical on [place] Branch 03/04/20 at 2200, Until Discontinu ed, Routine cyanocobala 2020-0 Yes 1000ug 1,000 mcg, Univers min 4-20 Subcutaneo ity of (VITAMIN 03:00: us, Q24H, [place] B12) 00 First dose Medical injection on [facility] 1,000 mcg 03/04/20 at 2200, Until Discontinu ed, Routine heparin 2020-0 Yes 5000U 5,000 Univers (porcine) 4-20 Units, ity of injection 03:00: Subcutaneo [place] 5,000 Units 00 us, Q8H, Medi birdie First dose Branch on [place] 03/04/20 at 2200, Until Discontinu ed, Routine ondansetron 2020-0 Yes 4mg 4 mg, Slow Univers (ZOFRAN 4-20 IV Push, ity of (PF)) 02:34: Q6HPRN, [place] injection 4 40 Starting Medi birdie mg [facility] 03/04/20 at 4, Until Discontinu ed, Routine, Nausea and Vomiting (N/V) traMADol 2020-0 2020- No 50mg 50 mg, Univer s (ULTRAM) 4-20 04-22 Oral, ity of tablet 50 02:34: 02:33 Q8HPRN, [place] mg 23 :23 Starting Medical [place] Branch 03/04/20 at 2133, Until 03/06/20 at 2133, Routine, Pain (scale 4-6) acetaminoph 2020-0 Yes 650mg 650 mg, Un mel en 4-20 Oral, ity of (TYLENOL) 02:34: Q6HPRN, [place] tablet 650 20 Starting Medic al mg [place] [facility] 03/04/20 at 2134, Until Discontinu ed, Routine, Pain (scale 1-3) lisinopril 2020-0 Yes [id number] 5mg Take 1 Univers 5 mg tablet 4-18 tablet by ity of 00:00: mouth [place] 00 daily. Medical Branch isosorbide 2020-0 Yes [id number] 30mg Take 1 [facility] mononitrate 4-18 tablet by ity of 30 mg 24 hr 00:00: mouth [place] tablet 00 daily. Medical Branch lisinopril 2020-0 Yes [id number] 5mg Take 1 [facility] 5 mg tablet 4-18 tablet by ity of 00:00: mouth [place] 00 daily. Medical Branch isosorbide 2020-0 Yes [id number] 30mg Take 1 [facility] mononitrate 4-18 tablet by ity of 30 mg 24 hr 00:00: mouth [place] tablet 00 daily. Medical Branch lisinopril 2019-0 2020- No [id number] 5mg Take 1 [facility] 5 mg tablet 4-18 04-22 tablet by it y of 00:00: 00:00 mouth [place] 00 :00 daily. Medical Branch isosorbide 2020-0 2020- No [id number] 30mg Take 1 [facility] mononitrate 4-18 04-22 [...] ity of 12.5 mg 17:34: mouth 2 [place] [address] (two) Medical times Branch daily. MULTIVITAMI 2020-0 Yes Take by Uni vers N ORAL 4-17 mouth. ity of 17:34: [place] [address] Medical Branch thiamine 2020-0 Yes 100mg Take 100 Univ ers (VITAMIN 4-17 mg by ity of B-1) 100 mg 17:34: mouth [place] tablet 27 daily. Medical Branch aspirin 81 2020-0 Yes 81mg Take 81 mg U nivers mg chewable 4-17 by mouth ity of tablet 17:34: daily. [place] [address] Medical Branch atorvastati 2020-0 Yes 40mg Take 40 mg Univers n 40 mg 4-17 by mouth ity of tablet 17:34: at [place] [address] bedtime. Medical Branch NaCl 0.9% 2020-0 Yes 10mL Inject 10 Uni vers (NS) Soln 4-17 mL ity of 10 mL with 17:34: intravenou [place] sodium 27 sly once Medical chloride now. Branch 2.5 mEq/mL SolP 17.125 mEq memantine-d 2020-0 Yes 1{capsu Take 1 U nivers onepezil 4-17 le} capsule by ity o f (NAMZARIC) 17:34: mouth [place] 28-10 mg 27 daily. Medical CSpX Branch folic 2020-0 Yes Take by Univers acid/vit B 4-17 mouth. ity of complex and 17:34: [place] C ([facility] Medical COMPLEX-VIT Branch RAZA C-FOLIC ACID ORAL) Cholecalcif 2020-0 Yes Take by Uni vers ann, 4-17 mouth. ity of Vitamin D3, 17:34: [place] 2,000 unit 27 Medical capsule Branch metoprolol 2020-0 Yes 12.5mg Take 12.5 Univers tartrate 4-17 mg by ity of 12.5 mg 17:34: mouth 2 [place] [address] (two) Medical times Branch daily. MULTIVITAMI 2020-0 Yes Take by Uni vers N ORAL 4-17 mouth. ity of 17:34: [place] [address] Medical Branch thiamine 2020-0 Yes 100mg Take 100 Univ ers (VITAMIN 4-17 mg by ity of B-1) 100 mg 17:34: mouth [place] tablet 27 daily. Medical Branch aspirin 81 2020-0 Yes 81mg Take 81 mg U nivers mg chewable 4-17 by mouth ity of tablet 17:34: daily. [place] [address] Medical Branch atorvastati 2020-0 Yes 40mg Take 40 mg Univers n 40 mg 4-17 by mouth ity of tablet 17:34: at [place] [address] bedtime. Medical Branch NaCl 0.9% 2020-0 Yes [...] mg 02:00: First dose [place] 00 on [facility] Medical 03/01/20 at Branch 2100, Until Discontinu ed, Routine furosemide 2020-0 Yes [id number] 40mg Take 1 [facility] 40 mg 4-17 tablet by ity of tablet 00:00: mouth [place] 00 every Medical morning Branch and evening. potassium 2020-0 Yes [id number] 20meq Take 20 Univers chloride 20 4-17 mEq by ity of mEq packet 00:00: mouth [place] 00 daily. Medical Branch vitamin 2020-0 Yes [id number] 1000ug Take 1 U nivers B-12 1,000 4-17 tablet by ity of mcg tablet 00:00: mouth [place] 00 daily. Medical Branch furosemide 2020-0 Yes [id number] 40mg Take 1 [facility] 40 mg 4-17 tablet by ity of tablet 00:00: mouth [place] 00 every Medical morning Branch and evening. potassium 2020-0 Yes [id number] 20meq Take 20 [facility] chloride 20 4-17 mEq by ity of mEq packet 00:00: mouth [place] 00 daily. Medical Branch vitamin 2020-0 Yes [id number] 1000ug Take 1 U nivers B-12 1,000 4-17 tablet by ity of mcg tablet 00:00: mouth [place] 00 daily. Medical Branch furosemide 2020-0 2020- No [id number] 40mg Take 1 [facility] 40 mg 4-17 04-22 tablet by ity of tablet 00:00: 00:00 mouth [place] 00 :00 every Medical morning Branch and evening. potassium 2020-0 2020- No [id number] 20meq Take 20 [facility] chloride 20 4-17 04-22 mEq by ity o f mEq packet 00:00: 00:00 mouth [place] 00 :00 daily. Medical Branch vitamin 2020-0 2020- No [id number] 1000ug Take 1 [facility] B-12 1,000 4-17 04-22 tablet by ity of mcg tablet 00:00: 00:00 mouth [place] 00 :00 daily. Medical Branch cyanocobala 2020-0 Yes 1000ug 1,000 mcg, [facility] min 4-16 Subcutaneo ity of (VITAMIN 20:45: us, Q24H, [place] B12) 00 First dose Medical injection on [facility] Branch 1,000 mcg 03/01/20 at 1545, Until Discontinu ed, Routine isosorbide 2020-0 Yes 30mg 30 mg, Unive rs mononitrate 4-16 Oral, ity of (IMDUR) 24 14:00: DAILY, [place] hr tablet 00 First dose Medi birdie 30 mg on [facility] 03/01/20 at 0900, Until Discontinu ed, Routine memantine 2020-0 Yes 10mg 10 mg, Univer s (NAMENDA) 4-16 Oral, ity of tablet 10 14:00: DAILY, [place] mg 00 First dose Medical on [facility] 03/01/20 at 0900, Until Discontinu ed, Routine
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 Restricted medication : MEGADC lisinopril 2020-0 Yes 5mg 5 mg, Univer s (PRINIVIL,Z 4-16 Oral, ity of ESTRIL) 14:00: DAILY, [place] tablet 5 mg 00 First dose Me dical on [facility] 03/01/20 at 0900, Until Discontinu ed, Routine enoxaparin 2020-0 Yes 30mg 30 mg, Unive rs (LOVENOX) 4-16 Subcutaneo ity of injection 14:00: [place], [place]ILY, [place] 30 mg 00 First dose Medical on [facility] 03/01/20 at 0900, Until Discontinu ed, Routine KCL 2020-0 2020- No 20meq 20 mEq, Univers (KLOR-CON 4-16 04-16 Oral, ity of M20) tablet 14:00: 13:26 DAILY, [place] as 20 mEq 00 :35 First dose Medical on [facility] 03/01/20 at 0900, Until Discontinu ed, Routine KCL 2020-0 Yes 40meq 40 mEq, Univers (KLOR-CON -16 Oral, BID, ity of M20) tablet 13:30: First dose [place] 40 mEq 00 on [facility] 03/01/20 at Branch 0830, Until Discontinu ed, Routine magnesium 2020-0 2020- No 2g 2 g, IV Univ ers sulfate in 03-01 Infusion, ity of water 2 03:30: 03:30 ONCE, 1 [place] gram/50 mL 00 :00 dose, Thu [facility] birdie (4 %) 2 g 02/29/20 at [facility] piggyback 2230 metoprolol 2020-0 2020- No 5mg 5 mg, Slow Univers (LOPRESSOR) 03-01 IV Push, ity of injection 5 03:30: 03:37 ONCE, 1 [place] mg 00 :00 dose, [facility] 02/29/20 at Branch 2230, ADAMA glipiZIDE 2020-0 Yes 5mg 5 mg, Univers (GLUCOTROL) 03-01 Oral, ity of tablet 5 mg 02:45: BIDAC, [place] 00 First dose Medical on [facility] 02/29/20 at 2145, Until Discontinu ed, Routine insulin 2020-0 Yes 10U 10 Units, Unive rs glargine 03-01 Subcutaneo ity o f (LANTUS 02:45: us, QHS, [place] U-100) 00 First dose Medical injection on [facility] 10 Units 02/29/20 at 2145, Until Discontinu ed, Routine OLANZapine 2020-0 Yes 2.5mg 2.5 mg, Uni vers (ZyPREXA) -16 Oral, QHS, ity of tablet 2.5 02:45: First dose [place] mg 00 on [facility] 02/29/20 at Branch 2145, Until Discontinu ed, Routine ranolazine 2020-0 Yes 500mg 500 mg, Uni vers (RANEXA) 12 03-01 Oral, ity of hr tablet 02:30: Q12H, [place] 500 mg 00 First dose Medical on [facility] 02/29/20 at 2130, Until Discontinu ed, Routine [...] 4-15 Oral, ity of (TYLENOL) 23:57: Q6HPRN, [place] tablet 650 25 Starting Medic al mg [facility] 02/29/20 at 1857, Until Discontinu [...] 02-14 by mouth ity of 00:00: daily. [address] donepezil 5 2019- No 5mg Take 5 mg Univers mg tablet 02-14 by mouth ity o f 00:00: 00:00 daily. [place] 00 :00 [facility] nitroglycer 2019- No DISSOLVE U [...] DOSES IN 15 MINUTES KCL 10 mEq 2019-2019- No 10meq Take 10 Un mel tablet [...] N ORAL 3-03 mouth. ity of 23:00: [place] [address] Medical Branch thiamine 2020-0 Yes 100mg Take 100 Univ ers (VITAMIN 3-03 mg by ity of B-1) 100 mg 23:00: mouth [place] tablet 52 daily. Medical Branch aspirin 81 2020-0 Yes 81mg Take 81 mg U nivers mg chewable 3-03 by mouth ity of tablet 23:00: daily. [place] [address] Medical Branch atorvastati 2020-0 Yes 40mg Take 40 mg Univers n 40 mg 3-03 by mouth ity of tablet 23:00: at [place] 52 bedtime. Medical Branch NaCl 0.9% 2020-0 [...] by ity of mEq packet 23:00: mouth [place] 52 daily. Medical Branch Cholecalcif 2020-0 Yes [...] N ORAL 3-03 mouth. ity of 23:00: [place] 52 Medical Branch thiamine 2020-0 Yes 100mg Take 100 Univ ers (VITAMIN 3-03 mg by ity of B-1) 100 mg 23:00: mouth [place] tablet 52 daily. Medical Branch aspirin 81 2020-0 Yes 81mg Take 81 mg U nivers mg chewable 3-03 by mouth ity of tablet 23:00: daily. [place] [address] Medical Branch atorvastati 2020-0 Yes 40mg Take 40 mg Univers n 40 mg 3-03 by mouth ity of tablet 23:00: at [place] [address] bedtime. Medical Branch NaCl 0.9% 2020-0 Yes [...] by ity of mEq packet 23:00: mouth [place] 52 daily. Medical Branch Cholecalcif 2020-0 Yes Take by Uni vers ann, 3-03 mouth. ity of Vitamin D3, 23:00: [place] 2,000 unit 52 Medical capsule Branch metoprolol 2020-0 Yes 12.5mg Take 12.5 Univers tartrate 3-03 mg by ity of 12.5 mg 23:00: mouth 2 [place] [address] (two) Medical times Branch daily. MULTIVITAMI 2020-0 Yes Take by Uni vers N ORAL 3-03 mouth. ity of 23:00: [place] [address] Medical Branch thiamine 2020-0 Yes 100mg Take 100 Univ ers (VITAMIN 3-03 mg by ity of B-1) 100 mg 23:00: mouth [place] tablet 52 daily. Medical Branch aspirin 81 2020-0 Yes 81mg Take 81 mg U nivers mg chewable 3-03 by mouth ity of tablet 23:00: daily. [place] [address] Medical Branch atorvastati 2020-0 Yes 40mg Take 40 mg Univers n 40 mg 3-03 by mouth ity of tablet 23:00: at [place] [address] bedtime. Medical Branch NaCl 0.9% 2020-0 Yes [...] ity of complex and 23:00: [place] C ([facility] Medical COMPLEX-VIT Branch RAZA C-FOLIC ACID ORAL) potassium 2020-0 Yes 20meq Take 20 Univ ers chloride 20 3-03 mEq by ity of mEq packet 23:00: mouth [place] 52 daily. Medical Branch Cholecalcif 2020-0 Yes Take by Uni vers ann, 3-03 mouth. ity of Vitamin D3, 23:00: [place] 2,000 unit 52 Medical capsule Branch metoprolol 2020-0 Yes 12.5mg Take 12.5 Univers tartrate 3-03 mg by ity of 12.5 mg 23:00: mouth 2 [place] [address] (two) Medical times Branch daily. MULTIVITAMI 2020-0 Yes Take by Uni vers N ORAL 3-03 mouth. ity of 23:00: [place] [address] Medical Branch thiamine 2020-0 Yes 100mg Take 100 Univ ers (VITAMIN 3-03 mg by ity of B-1) 100 mg 23:00: mouth [place] tablet 52 daily. Medical Branch aspirin 81 2020-0 Yes 81mg Take 81 mg U nivers mg chewable 3-03 by mouth ity of tablet 23:00: daily. [place] [address] Medical Branch atorvastati 2020-0 Yes 40mg Take 40 mg Univers n 40 mg 3-03 by mouth ity of tablet 23:00: at [place] [address] bedtime. Medical Branch NaCl 0.9% 2020-0 Yes [...] First dose [place] mg 00 on [facility] 01/16/20 at Branch 2100, Until Discontinu ed, Routine ranolazine 2020-0 2020- No [id number] 500mg Take 1 Univers 500 mg 01-16-03 tablet by ity of hr tablet 00:00: 04:59 mouth [place] 00 :00 every 12 Medical (twelve) Branch hours for 30 days. ranolazine 2020-0 2020- No [id number] 500mg Take 1 Univers 500 mg 01-16 04-03 tablet by ity of hr tablet 00:00: 04:59 mouth [place] 00 :00 every 12 Medical (twelve) Branch hours for 30 days. ranolazine 2020-0 2020- No [id number] 500mg Take 1 Univers 500 mg 01-16 04-03 tablet by ity of hr tablet 00:00: 04:59 mouth [place] 00 :00 every 12 Medical (twelve) Branch hours for 30 days. ranolazine 2020-0 2020- No [id number] 500mg Take 1 Univers 500 mg 12 01-16 04-03 tablet by ity of hr tablet 00:00: 04:59 mouth [place] 00 :00 every 12 Medical (twelve) Branch hours for 30 days. ranolazine 2020-0 Yes 500mg 500 mg, Uni vers (RANEXA) 12 3-02 Oral, ity of hr tablet 22:30: Q12H, [place] 500 mg 00 First dose Medical on [facility] 01/16/20 at 1630, Until Discontinu ed, Routine insulin 2020-0 Yes 30U 30 Units, Unive rs glargine 3-02 Subcutaneo ity o f (LANTUS 15:00: us, DAILY, [place] U-100) 00 First dose Medical injection on Thu 30 Units 01/16/20 at [...] First dose [place] tablet 12.5 00 on Thu Medica l mg 01/16/20 at Branch 0800, [...] 25 mL, Univ ers % in water 302 Slow IV ity of (D50W) 10:52: Push, [...] IV Push, ity of (PF)) 07:55: Q6HPRN, [place] injection 4 01 Starting Medi birdie mg 01/16/20 Branch at 0155, Until Discontinu ed, Routine, Nausea and Vomiting (N/V) morpHINE 2019-0 2020- No 2mg 2 mg, Slow Un mel injection 2 01-15 0303 IV Push, ity of mg 07:54: 07[facility], [place] 55 :55 Starting Medical 01/16/20 Branch at 0154, Until 01/17/20 at 0153, Routine, Pain (scale 7-10) traMADol 2019-0 2020- No 50mg 50 mg, Univer s (ULTRAM) 01-15 03-04 Oral, ity of tablet 50 07:54: 07:53 Q8HPN, [facility] mg 47 :47 Starting Medical 01/16/20 Branch at 0154, Until 01/18/20 at 0153, Routine, Pain (scale 4-6) acetaminoph 2019-0 Yes 650mg 650 mg, Un mel en 01-15 Oral, ity of (TYLENOL) 07:54: [facility], [place] tablet 650 44 Starting Medic al mg 01/16/20 Branch at 0154, Until Discontinu ed, Routine, Pain (scale 1-3) insulin 2020-0 2020- No 8U 8 Units, Unive rs regular 01-15 03- Slow IV ity of human 06:45: 05:40 Push, [place] (HUMULIN R) 00 :00 ONCE, 1 Medic al injection 8 dose, Mon Bra nch Units 01/16/20 at 0045, STAT heparin 2020-0 Yes 1000U/h 1,000 Univer s 25,000 3-02 Units/hr ity of unit/250 mL 06:00: (10 [place] (Premixed 00 mL/hr), IV Medi birdie Bag) [...] mouth Hospi ta tablet 00 nightly. l multivitami 2018-11 Yes 1{tbl} QD Take 1 Me thodi n 1-[address] (THERAGRAN) 00:00: mouth Hospi ta tablet 00 nightly. l furosemide 2018-11 Yes [id number] 40mg Take 1 Univers 40 mg 0-26 tablet by ity of tablet 00:00: mouth [place] 00 daily. Medical Branch furosemide 2018-11 Yes [id number] 40mg Take 1 Univers 40 mg 0-26 tablet by ity of tablet 00:00: mouth [place] 00 daily. Medical Branch furosemide 2018-11 Yes [id number] 40mg Take 1 Univers 40 mg 0-26 tablet by ity of tablet 00:00: mouth [place] 00 daily. Medical Branch furosemide 2018-11 Yes [id number] 40mg Take 1 Univers 40 mg 0-26 tablet by ity of tablet 00:00: mouth [place] 00 daily. Medical Branch furosemide 2018-11 2020- No [id number] 40mg Take 1 Univers 40 mg 0-26 04-17 tablet by ity of tablet 00:00: 00:00 mouth [place] 00 :00 daily. Medical Branch magnesium 2018-11 Yes [id number] 400mg Take 400 Univers oxide 420 0-23 mg by ity of mg Tab 00:00: mouth [place] 00 daily. Medical Branch magnesium 2018-11 Yes [id number] 400mg Take 400 Univers oxide 420 0-23 mg by ity of mg Tab 00:00: mouth [place] 00 daily. Medical Branch magnesium 2018-11 Yes [id number] 400mg Take 400 Univers oxide 420 0-23 mg by ity of mg Tab 00:00: mouth [place] 00 daily. Medical Branch magnesium 2018-11 Yes [id number] 400mg Take 400 Univers oxide 420 0-23 mg by ity of mg Tab 00:00: mouth [place] 00 daily. Medical Branch magnesium 2019- Yes [id number] 400mg Take 400 Univers oxide 420 0-23 mg by ity of mg Tab 00:00: mouth [place] 00 daily. Medical Branch magnesium 2019-1 Yes [id number] 400mg Take 400 Univers oxide 420 0-23 mg by ity of mg Tab 00:00: mouth [place] 00 daily. Medical Branch magnesium 2018- 2020- No [id number] 400mg Take 400 Univers oxide 420 0-23 04-22 mg by ity of mg Tab 00:00: 00:00 mouth [place] 00 :00 daily. [facility] Branch Insulin 2018-0 Yes [id number] 30U inject 30 Univers Glargine 9-11 Units ity of 100 unit/mL 00:00: under the [place] (3 mL) 00 skin every Medical injection morning. Branch Insulin 2018-0 Yes [id number] 30U inject 30 Univers Glargine 9-11 Units ity of 100 unit/mL 00:00: under the [place] (3 mL) 00 skin every Medical injection morning. Branch Insulin 2018-0 Yes [id number] 30U inject 30 Univers Glargine 9-11 Units ity of 100 unit/mL 00:00: under the [place] (3 mL) 00 skin every Medical injection morning. Branch Insulin 2018-0 Yes [id number] 30U inject 30 Univers Glargine 9-11 Units ity of 100 unit/mL 00:00: under the [place] (3 mL) 00 skin every Medical injection morning. Branch Insulin 2018-0 Yes [id number] 30U inject 30 Univers Glargine 9-11 Units ity of 100 unit/mL 00:00: under the [place] (3 mL) 00 skin every Medical injection morning. Branch Insulin 2018-0 Yes [id number] 30U inject 30 Univers Glargine 9-11 Units ity of 100 unit/mL 00:00: under the [place] (3 mL) 00 skin every Medical injection morning. Branch Insulin 2018-0 Yes [id number] 30U inject 30 Univers Glargine 9-11 Units ity of 100 unit/mL 00:00: under the [place] (3 mL) 00 skin every Medical injection morning. Branch Insulin 2019-0 2020- No [id number] 30U inject 30 Univers Glargine 9-11 04-22 Units ity of 100 unit/mL 00:00: 00:00 under the [place] (3 mL) 00 :00 skin every Medical injection morning. Branch NAMZARIC Yes TAKE 1 Methodi 28-10 mg 6-[address] capsule,spr 00:00: MOUTH ONCE [facility] 00 DAILY l 24hr NAMZARIC Yes TAKE 1 Methodi 28-10 mg 6-[address] capsule,spr 00:00: MOUTH ONCE [facility] 00 DAILY l 24hr memantine-d Yes 1{capsu Take 1 U nivers onepezil 5-10 le} capsule by ity o f (NAMZARIC) 15:26: mouth [place] 28-10 mg 43 daily. Medical CSpX Branch enoxaparin Yes 30mg inject 30 Un mel injection 5-10 mg under ity of 15:26: the skin. [place] [address] Medical Branch Cholecalcif Yes Take by Uni vers ann, 5-10 mouth. ity of Vitamin D3, 15:26: [place] 2,000 unit 43 Medical capsule Branch metoprolol Yes 12.5mg Take 12.5 Univers tartrate 5-10 mg by ity of 12.5 mg 15:26: mouth 2 [place] [address] (two) Medical times Branch daily. MULTIVITAMI Yes Take by Uni vers N ORAL 5-10 mouth. ity of 15:26: [place] [address] Medical Branch thiamine Yes 100mg Take 100 Univ ers (VITAMIN 5-10 mg by ity of B-1) 100 mg 15:26: mouth [place] tablet 43 daily. Medical Branch aspirin 81 Yes 81mg Take 81 mg U nivers mg chewable 5-10 by mouth ity of tablet 15:26: daily. [place] [address] Medical Branch atorvastati Yes 40mg Take 40 mg Univers n 40 mg 5-10 by mouth ity of tablet 15:26: at [place] [address] bedtime. Medical Branch furosemide Yes 40mg Take 40 mg U nivers 40 mg 5-10 by mouth ity of tablet 15:26: daily. [place] [address] Medical Branch NaCl 0.9% Yes 10mL Inject [...] mg under ity of 15:26: the skin. [place] [address] Medical Branch Cholecalcif 0 Yes Take by Uni vers ann, 5-10 mouth. ity of Vitamin D3, 15:26: [place] 2,000 unit Medical capsule Branch metoprolol 0 Yes 12.5mg Take 12.5 Univers tartrate 5-10 mg by ity of 12.5 mg 15:26: mouth 2 [place] [address] (two) Medical times Branch daily. MULTIVITAMI 0 Yes Take by Uni vers N ORAL 5-10 mouth. ity of 15:26: [place] [address] Medical Branch thiamine 0 Yes 100mg Take 100 Univ ers (VITAMIN 5-10 mg by ity of B-1) 100 mg 15:26: mouth [place] tablet 43 daily. Medical Branch aspirin 81 0 Yes 81mg Take 81 mg U nivers mg chewable 5-10 by mouth ity of tablet 15:26: daily. [place] [address] Medical Branch atorvastati 0 Yes 40mg Take 40 mg Univers n 40 mg 5-10 by mouth ity of tablet 15:26: at [place] [address] bedtime. Medical Branch furosemide 0 Yes 40mg Take 40 mg U nivers 40 mg 5-10 by mouth ity of tablet 15:26: daily. [place] [address] Medical Branch NaCl 0.9% 20190 Yes 10mL Inject 10 Uni vers (NS) Soln 5-10 mL ity of 10 mL with 15:26: intravenou [place] sodium 43 sly once Medical chloride now. Branch 2.5 mEq/mL SolP 17.125 mEq insulin 2018-0 Yes [id number] 4U inject 4 U nivers lispro, 5-10 Units ity of human, 100 00:00: under the [place] unit/mL 00 skin 3 Medical injection (three) Branch times daily before meals. insulin 2019-0 Yes [id number] 4U inject 4 U nivers lispro, 5-10 Units ity of human, 100 00:00: under the [place] unit/mL 00 skin 3 Medical injection (three) Branch times daily before meals. insulin 2019-0 Yes [id number] 4U inject 4 U nivers lispro, 5-10 Units ity of human, 100 00:00: under the [place] unit/mL 00 skin 3 Medical injection (three) Branch times daily before meals. insulin 2018-0 Yes [id number] 4U inject 4 U nivers lispro, 5-10 Units ity of human, 100 00:00: under the [place] unit/mL 00 skin 3 Medical injection (three) Branch times daily before meals. insulin 2018-0 Yes [id number] 4U inject 4 U nivers lispro, 5-10 Units ity of human, 100 00:00: under the [place] unit/mL 00 skin 3 Medical injection (three) Branch times daily before meals. insulin 2018-0 Yes [id number] 4U inject 4 U nivers lispro, 5-10 Units ity of human, 100 00:00: under the [place] unit/mL 00 skin 3 Medical injection (three) Branch times daily before meals. Insulin 2018-0 Yes [id number] 18U inject Uni vers Glargine 5-10 18-24 ity of 100 unit/mL 00:00: Units [place] (3 mL) 00 under the Medical injection skin every Bran ch morning. insulin 2018-0 Yes [id number] 4U inject 4 U nivers lispro, 5-10 Units ity of human, 100 00:00: under the [place] unit/mL 00 skin 3 Medical injection (three) Branch times daily before meals. insulin 2018-0 Yes [id number] 4U inject 4 U nivers lispro, 5-10 Units ity of human, 100 00:00: under the [place] unit/mL 00 skin 3 Medical injection (three) Branch times daily before meals. insulin 2019-0 Yes [id number] 4U inject 4 U nivers lispro, 5-10 Units ity of human, 100 00:00: under the [place] unit/mL 00 skin 3 Medical injection (three) Branch times daily before meals. insulin Yes [id number] 4U inject 4 U nivers lispro, 5-10 Units ity of human, 100 00:00: under the [place] unit/mL 00 skin 3 Medical injection (three) Branch times daily before meals. insulin Yes [id number] 4U inject 4 U nivers lispro, 5-10 Units ity of human, 100 00:00: under the [place] unit/mL 00 skin 3 Medical injection (three) Branch times daily before meals. insulin 2019- No [id number] 4U inject 4 Univers lispro, 5-10 05-07 Units ity of human, 100 00:00: 00:00 under the [place] unit/mL 00 :00 skin 3 Medical injection (three) Branch times daily before meals. insulin 2019- No [id number] 4U inject 4 Univers lispro, 5-10 05-07 Units ity of human, 100 00:00: 00:00 under the [place] unit/mL 00 :00 skin 3 Medical injection (three) Branch times daily before meals. Insulin 2019- No [id number] 18U inject Un mel Glargine 5-10 09-11 18-24 ity of 100 unit/mL 00:00: 00:00 Units [place] (3 mL) 00 :00 under the Medical injection skin every Bran ch morning. OLANZapine Yes TAKE 1 Metho di (ZYPREXA) 5-[address] 2.5 MG 00:00: MOUTH ONCE Hospi ta tablet 00 DAILY AT l NIGHT OLANZapine Yes TAKE 1 Metho di (ZYPREXA) 5-[address] 2.5 MG 00:00: MOUTH ONCE Hospi ta tablet 00 DAILY AT l NIGHT folic Yes Take by Univers acid/vit B 3-08 mouth. ity of complex and 16:39: Aric Belcher (B 29 Medical COMPLEX-VIT Branch RAZA C-FOLIC ACID ORAL) potassium Yes 20meq Take 20 Univ ers chloride 20 3-08 mEq by ity of mEq packet 16:39: mouth [place] 29 daily. Medical Branch folic Yes Take by Univers acid/vit B 3-08 mouth. ity of complex and 16:39: Aric [place] (B 29 Medical COMPLEX-VIT Branch RAZA C-FOLIC ACID ORAL) potassium 2019-0 Yes 20meq Take 20 Univ ers chloride 20 3-08 mEq by ity of mEq packet 16:39: mouth [place] 29 daily. Medical Branch acetaminoph No Esteban G 1 tab, M emoria en-hydrocod 4-21 [place] Route: PO, l one 325 16:50: Drug Form: Herm sana mg-5 mg 00 TAB, Q4H, oral tablet PRN Pain, Start date: 03/06/13 11:50:00, Duration: 30 day, Stop date: 04/05/13 11:49:00 acetaminoph No Esteban G 1 tab, M emoria en-hydrocod 4-21 [place] Route: PO, l one 325 16:50: Drug Form: Herm sana mg-5 mg 00 TAB, Q4H, oral tablet PRN Pain, Start date: 03/06/13 11:50:00, Duration: 30 day, Stop date: 04/05/13 11:49:00 Bactroban No Esteban G 1 appl, Me moria 4-20 [place] Route: l 17:00: TOP, [place] 00 Daily, Drug form: OINT, Start date: 03/05/13 12:00:00, Duration: 30 day, Stop date: 04/04/13 9:00:00 Bactroban No Esteban G 1 appl, Me moria 4-20 [place] Route: l 17:00: TOP, [place] 00 Daily, Drug form: OINT, Start date: 03/05/13 12:00:00, Duration: 30 day, Stop date: 04/04/13 9:00:00 Aricept No Esteban G 5 mg, 1 Manjit greg 4-19 [place] tab, l 14:00: Route: PO, [place] Drug form: TAB, QAM, Start date: 03/04/13 9:00:00, Duration: 30 day, Stop date: 04/02/13 9:00:00 Lipitor No Esteban G 20 mg, 1 Mem oria 4-19 [place] tab, l 14:00: Route: PO, [place] Drug form: TAB, QAM, Start date: 03/04/13 9:00:00, Duration: 30 day, Stop date: 04/02/13 9:00:00 Amaryl 2013-0 No Esteban G 1 mg, 1 Memor ia 4-19 [place] tab, l 14:00: Route: PO, [place] Drug form: TAB, Daily, Start date: 03/04/13 9:00:00, Duration: 30 day, Stop date: 04/02/13 9:00:00 hydrochloro 2013-0 No Esteban G 12.5 mg, Memoria thiazide 25 4-19 [place] 0.5 tab, l mg oral 14:00: Route: PO, Herm sana tablet Drug form: TAB, QAM, Start date: 03/04/13 9:00:00, Duration: 30 day, Stop date: 04/02/13 9:00:00 Prinivil 2013-0 No Esteban G 40 mg, 2 Me moria 4-19 [place] tab, l 14:00: Route: PO, [place] Drug form: TAB, QAM, Start date: 03/04/13 9:00:00, Duration: 30 day, Stop date: 04/02/13 9:00:00 Aricept 2013-0 No Esteban G 5 mg, 1 Manjit greg 4-19 [place] tab, l 14:00: Route: PO, [place] Drug form: TAB, QAM, Start date: 03/04/13 9:00:00, Duration: 30 day, Stop date: 04/02/13 9:00:00 Lipitor 2013-0 No Esteban G 20 mg, 1 Mem oria 4-19 [place] tab, l 14:00: Route: PO, [place] Drug form: TAB, QAM, Start date: 03/04/13 9:00:00, Duration: 30 day, Stop date: 04/02/13 9:00:00 Amaryl 2013-0 No Esteban G 1 mg, 1 Memor ia 4-19 [place] tab, l 14:00: Route: PO, [place] Drug form: TAB, Daily, Start date: 03/04/13 9:00:00, Duration: 30 day, Stop date: 04/02/13 9:00:00 hydrochloro 2013-0 No Esteban G 12.5 mg, Memoria thiazide [...] 4-18 [place] tab, l 22:00: Route: PO, [place] Drug form: TAB, BID, Start date: 03/03/13 17:00:00, Duration: 30 day, Stop date: 04/02/13 9:00:00 Lyrica 2013-0 No Esteban G 100 mg, 2 Mem oria 4-18 [place] cap, l 22:00: Route: PO, [place] 00 Drug form: CAP, TID, Start date: 03/03/13 17:00:00, Duration: 30 day, Stop date: 04/02/13 13:00:00 Mobic 2013-0 No Esteban G 7.5 mg, 1 Manjit greg 4-18 [place] tab, l 22:00: Route: PO, [place] 00 Drug form: TAB, BID, Start date: 03/03/13 17:00:00, Duration: 30 day, Stop date: 04/02/13 9:00:00 Robaxin 2013-0 No Esteban G 750 mg, 1 Me moria 4-18 [place] tab, l 22:00: Route: PO, [place] 00 Drug form: TAB, TID, Start date: 03/03/13 17:00:00, Duration: 30 day, Stop date: 04/02/13 13:00:00 Namenda 2013-0 No Esteban G 10 mg, 1 Mem oria 4-18 [place] tab, l 22:00: Route: PO, [place] 00 Drug form: TAB, BID, Start date: 03/03/13 17:00:00, Duration: 30 day, Stop date: 04/02/13 9:00:00 Lyrica 2013-0 No Esteban G 100 mg, 2 Mem oria 4-18 [place] cap, l 22:00: Route: PO, [place] 00 Drug form: CAP, TID, Start date: 03/03/13 17:00:00, Duration: 30 day, Stop date: 04/02/13 13:00:00 Mobic 2013-0 No Esteban G 7.5 mg, 1 Manjit greg 4-18 [place] tab, l 22:00: Route: PO, Drug form: TAB, BID, Start date: 03/03/13 17:00:00, Duration: 30 day, Stop date: 04/02/13 9:00:00 Robaxin 2013-0 No Esteban G 750 mg, 1 Me moria 4-18 [place] tab, l 22:00: Route: PO, Drug form: TAB, TID, Start date: 03/03/13 17:00:00, Duration: 30 day, Stop date: 04/02/13 13:00:00 Dextrose 5% 2013-0 No Esteban G 1,000 mL, Memoria with 0.45% 4-18 [place] Rate: 75 l NaCl IV 20:00: ml/hr, [place] 1,000 mL 00 Infuse over: 13.3 hr, Route: IV, kg, Total Volume: 1,000, Start date: 03/03/13 15:00:00, Stop date: 04/02/13 14:59:00 Dextrose 5% 2013-0 No Esteban G 1,000 mL, Memoria with 0.45% 4-18 [place] Rate: 75 l NaCl IV 20:00: ml/hr, [place] 1,000 mL 00 Infuse over: 13.3 hr, Route: IV, kg, Total Volume: 1,000, Start date: 03/03/13 15:00:00, Stop date: 04/02/13 14:59:00 glucagon 2013-0 No Esteban G 1 mg, Memor ia 4-18 [place] Route: IV, l 19:52: Drug form: [place] 00 PDR/INJ, PRN, PRN Blood Glucose Results, Start date: 03/03/13 14:52:00, Duration: 30 day, Stop date: 04/02/13 14:51:00 Dextrose 2012- No Esteban G 50 mL, Manjit greg 50% in 4-18 [place] Route: l Water IV 19:52: IVP, Start ricci date: 03/03/13 14:52:00, Duration: 30 day, Stop date: 04/02/13 14:51:00, PRN Blood Glucose Results NovoLog 2012- No Esteban G 5 unit, Manjit greg FlexPen 4-18 [place] 0.05 mL, l 19:52: Route: [place] 00 SUB-Q, Drug form: SOLN, Sliding Scale, PRN Blood Glucose Results, Start date: 03/03/13 14:52:00, Duration: 30 day, Stop date: 04/02/13 14:51:00 glucagon 2012- No Esteban G 1 mg, Memor ia 4-18 [place] Route: IV, l 19:52: Drug form: [place] 00 PDR/INJ, PRN, PRN Blood Glucose Results, Start date: 03/03/13 14:52:00, Duration: 30 day, Stop date: 04/02/13 14:51:00 Dextrose 2012- No Esteban G 50 mL, Manjit greg 50% in 4-18 [place] Route: l Water IV 19:52: IVP, Start ricci date: 03/03/13 14:52:00, Duration: 30 day, Stop date: 04/02/13 14:51:00, PRN Blood Glucose Results NovoLog 2012- No Esteban G 5 unit, Manjit greg FlexPen 4-18 [place] 0.05 mL, l 19:52: Route: [place] 00 SUB-Q, Drug form: SOLN, Sliding Scale, PRN Blood Glucose Results, Start date: 03/03/13 14:52:00, Duration: 30 day, Stop date: 04/02/13 14:51:00 Sodium 2012-0 No Esteban G 250 mL, Memor ia Chloride 4-18 [place] Route: l 0.9% IV 18:34: IVPB, [place] 00 Start date: 03/03/13 13:34:00, Duration: 30 day, Stop date: 04/02/13 13:33:00, PRN Line Flush BD Normal 2012-0 No Esteban G 10 mL, Mem oria Saline 4-18 Jessika Route: l Flush 18:34: IVP, Drug [place] 00 Form: INJ, PRN, PRN Line Flush, Start date: 03/03/13 13:34:00, Duration: 30 day, Stop date: 04/02/13 13:33:00 morphine 2012- No Esteban G 2 mg, 1 Mem oria Sulfate 4-18 Jessika mL, Route: l 18:34: IV, Drug [place] form: INJ, Q1H, PRN Pain, Start date: 03/03/13 13:34:00, Duration: 30 day, Stop date: 04/02/13 13:33:00 Sodium 2012-0 No Esteban G 250 mL, Memor ia Chloride 4-18 Jessika Route: l 0.9% IV 18:34: IVPB, [place] 00 Start date: 03/03/13 13:34:00, Duration: 30 day, Stop date: 04/02/13 13:33:00, PRN Line Flush BD Normal 2012-0 No Esteban G 10 mL, Mem oria Saline 4-18 Jessika Route: l Flush 18:34: IVP, Drug [place] 00 Form: INJ, PRN, PRN Line Flush, Start date: 03/03/13 13:34:00, Duration: 30 day, Stop date: 04/02/13 13:33:00 morphine 2012-0 No Esteban G 2 mg, 1 Mem oria Sulfate 4-18 Jessika mL, Route: l 18:34: IV, Drug [place] form: INJ, Q1H, PRN Pain, Start date: 03/03/13 13:34:00, Duration: 30 day, Stop date: 04/02/13 13:33:00 Zofran 2012-0 No Esteban G 4 mg, Memoria 4-18 Jessika Route: l 15:49: IVP, Drug [place] 00 form: INJ, ONCE, Dosing Weight 87.8, kg, Start date: 03/03/13 10:49:00, Stop date: 03/03/13 10:49:00 Zofran 2012-0 No Esteban G 4 mg, Memoria 4-18 Jessika Route: l 15:49: IVP, Drug [place] 00 form: INJ, ONCE, Dosing Weight 87.8, kg, Start date: 03/03/13 10:49:00, Stop date: 03/03/13 10:49:00 fentanyl 2012-0 No Esteban G 25 Memori a 4-18 Jessika microgram, l 15:48: Route: [place] 00 IVP, ONCE, Dosing Weight 87.8, kg, Start date: 03/03/13 10:48:00, Stop date: 03/03/13 10:48:00 fentanyl 2012-0 No Esteban G 25 Memori a 4-18 Jessika microgram, l 15:48: Route: [place] IVP, ONCE, Dosing Weight 87.8, kg, Start date: 03/03/13 10:48:00, Stop date: 03/03/13 10:48:00 acetaminoph 2012-0 No Esteban G 1,000 mg, Memoria en 10 mg/mL 4-18 Jessika Route: IV, l intravenous 15:12: Drug form: [place] solution 00 INJ, ONCE, Dosing Weight 87.8, kg, For > or = 50 kg, Start date: 03/03/13 10:12:00, Stop date: 03/03/13 10:12:00 hydromorpho 2012-0 No Esteban G 0.5 mg, Memoria ne 4-18 Jessika Route: IV, l 15:12: ONCE, Dosing Weight 87.8, kg, Start date: 03/03/13 10:12:00, Stop date: 03/03/13 10:12:00 acetaminoph 2012-0 No Esteban G 1,000 mg, Memoria en 10 mg/mL 4-18 Jess[place] Route: IV, l intravenous 15:12: Drug form: [place] solution 00 INJ, ONCE, Dosing Weight 87.8, kg, For > or = 50 kg, Start date: 03/03/13 10:12:00, Stop date: 03/03/13 10:12:00 hydromorpho 2012-0 No Esteban G 0.5 mg, Memoria ne 4-18 [place] Route: IV, l 15:12: ONCE, Dosing Weight 87.8, kg, Start date: 03/03/13 10:12:00, Stop date: 03/03/13 10:12:00 Potassium Potassium Yes Anneliese 1 capsule Common Chloride Chloride Millender with food [facility] Tylenol # 3 Tylenol # 3 Yes Anneliese one tab Common Millender [facility] Vitamin D-3 Vitamin D-3 Yes Anneliese 2 capsule Common Millender [facility] Humalog Humalog Yes Anneliese as Common Millender directed [facility] Aspir-Low Aspir-Low Yes Anneliese 1 tablet Common Millender [facility] Namzaric Namzaric Yes Anneliese 1 Common Millender [facility] Zyprexa Zyprexa Yes Anneliese 1 tablet Comm on Millender [facility] Vitamin B-1 Vitamin B-1 Yes Anneliese 1 tablet Common Millender [facility] Multivitami Multivitami Yes Anneliese as Common n n Millender directed [facility] Lantus Lantus Yes Anneliese as Common Millender directed [facility] Lasix Lasix Yes Anneliese 1 tablet Common Millender [facility] Isosorbide Isosorbide Yes Anneliese 1 tablet Common Mononitrate Mononitrate Millender in the [facility] morning [facility] Lyrica Lyrica Yes Anneliese 1 capsule Commo n Millender [facility] Immunizations Ordered Filled Immunization Date Status Comments [facility] e Immunization Name Name SARS-COV-2 COVID-19 2021-09-16 Completed [facility] VACCINE 00:00:00 [facility] SARS-COV-2 COVID-19 2021-09-16 Completed [facility] VACCINE 00:00:00 [facility] SARS-COV-2 COVID-19 2021-09-16 Completed [facility] of [facility] VACCINE 00:00:00 [facility] SARS-COV-2 COVID-19 2021-09-16 Completed [facility] VACCINE 00:00:00 [facility] SARS-COV-2 COVID-19 2021-09-16 Completed [facility] 00:[facility]00 [facility] SARS-COV-2 COVID-19 2021-09-16 Completed [facility] of [facility] VACCINE 00:00:00 [facility] SARS-COV-2 COVID-19 2021-09-16 Completed [facility] of [facility]ER[facility] VACCINE 00:00:00 [facility] SARS-COV-2 COVID-19 2021-09-16 Completed [facility] of [facility]ER[facility] VACCINE 00:00:00 [facility] SARS-COV-2 COVID-19 2021-09-16 Completed [facility] of [facility] VACCINE 00:00:00 [facility] SARS-COV-2 COVID-19 2021-09-16 Completed [facility] of [facility] VACCINE 00:00:00 [facility] SARS-COV-2 COVID-19 2021-08-17 Completed [facility] of [facility] VACCINE 00:00:00 [facility] Influenza High Dose 2021-08-17 Completed Unive rsity of 00:00:00 [facility] SARS-COV-2 COVID-19 2021-08-17 Completed [facility]ive rsity of MODERNA VACCINE 00:00:00 [facility] Influenza High Dose 2021-08-17 Completed Unive rsity of 00:00:00 [facility] SARS-COV-2 COVID-19 2021-08-17 Completed [facility] of MODERNA VACCINE 00:00:00 [facility] Influenza High Dose 2021-08-17 Completed Unive rsity of 00:00:00 [facility] SARS-COV-2 COVID-19 2021-08-17 Completed [facility] of [facility]ER[facility] VACCINE 00:00:00 [facility] Influenza High Dose 2021-08-17 Completed Unive rsity of 00:00:00 [facility] SARS-COV-2 COVID-19 2021-08-17 Completed [facility] of [facility]ER[facility] VACCINE 00:00:00 [facility] Influenza High Dose 2021-08-17 Completed Unive rsity of 00:00:00 [facility] SARS-COV-2 COVID-19 2021-08-17 Completed [facility] of MODERNA VACCINE 00:00:00 [facility] Influenza High Dose 2021-08-17 Completed Unive rsity of 00:00:[address] [facility] SARS-COV-2 COVID-19 2021-08-17 Completed [facility]ive rsity of MODERNA VACCINE 00:00:00 [facility] Influenza High Dose 2021-08-17 Completed Unive rsity of 00:00:[address] [facility] SARS-COV-2 COVID-19 2021-08-17 Completed [facility]ive [facility] of MODERNA VACCINE 00:00:00 [facility] Influenza High Dose 2021-08-17 Completed Unive rsity of 00:00:[address] [facility] SARS-COV-2 COVID-19 2021-08-17 Completed [facility] of MODERNA VACCINE 00:00:00 [facility] Influenza High Dose 2021-08-17 Completed Unive rsity of 00:00:00 [facility] SARS-COV-2 COVID-19 2021-08-17 Completed [facility]ive rs[facility] of MODERNA VACCINE 00:00:00 [facility] Influenza High Dose 2021-08-17 Completed Unive rsity of 00:00:[address] [facility] Zoster(Zostavax)( 2020-09-14 Completed Unive rsity of ingles) 00:00:[address] [facility] Zoster(Zostavax)( 2020-09-14 Completed Unive rs[facility] of ingles) 00:00:[address] [facility] Zoster(Zostavax)( 2020-09-14 Completed Unive rsity of ingles) 00:00:[address] [facility] Zoster(Zostavax)( 2020-09-14 Completed Unive rsity of ingles) 00:00:[address] [facility] Zoster(Zostavax)( 2020-09-14 Completed Unive rsity of ingles) 00:00:[address] [facility] Zoster(Zostavax)( 2020-09-14 Completed Unive rsity of ingles) 00:00:[address] [facility] Zoster(Zostavax)( 2020-09-14 Completed Unive rsity of ingles) 00:00:[address] [facility] Zoster(Zostavax)( 2020-09-14 Completed Unive rsity of ingles) 00:00:[address] [facility] Zoster(Zostavax)( 2020-09-14 Completed Unive rsity of ingles) 00:00:00 [facility] Zoster(Zostavax)( 2020-09-14 Completed Unive rsity of ingles) 00:00:00 [facility] Influenza High Dose 2020-07-13 Completed Unive rsity of 00:00:00 [facility] Influenza High Dose 2020-07-13 Completed Unive rsity of 00:00:00 [facility] Influenza High Dose 2020-07-13 Completed Unive rsity of 00:00:00 [facility] Influenza High Dose 2020-07-13 Completed Unive rsity of 00:00:00 [facility] Influenza High Dose 2020-07-13 Completed Unive rsity of 00:00:00 [facility] Influenza High Dose 2020-07-13 Completed Unive rsity of 00:00:00 [facility] Influenza High Dose 2020-07-13 Completed Unive rsity of 00:00:00 [facility] Influenza High Dose 2020-07-13 Completed Unive rsity of 00:00:00 [facility] Influenza High Dose 2020-07-13 Completed Unive rsity of 00:00:00 [facility] Influenza High Dose 2020-07-13 Completed Unive rsity of 00:00:00 [facility] Influenza High Dose 2019-09-15 Completed Unive rsity of 00:00:00 [facility] Influenza High Dose 2019-09-15 Completed Unive rsity of 00:00:00 [facility] Influenza High Dose 2019-09-15 Completed Unive rsity of 00:00:00 [facility] Influenza High Dose 2019-09-15 Completed Unive rsity of 00:00:00 [facility] Influenza High Dose 2019-09-15 Completed Unive rsity of 00:00:00 [facility] Influenza High Dose 2019-09-15 Completed Unive rsity of 00:00:00 [facility] Influenza High Dose 2019-09-15 Completed Unive rsity of 00:00:00 [facility] Influenza High Dose 2019-09-15 Completed Unive rsity of 00:00:00 [facility] Influenza High Dose 2019-09-15 Completed Unive rsity of 00:00:00 [facility] Influenza High Dose 2019-09-15 Completed Unive rsity of 00:00:00 [facility] Influenza Virus 2018-09-09 Completed Universit y of Vaccine 00:00:00 [facility] Influenza Virus 2018-09-09 Completed Universit y of Vaccine 00:00:00 [facility] Influenza Virus 2018-09-09 Completed Universit y of Vaccine 00:00:00 [facility] Influenza Virus 2018-09-09 Completed Universit y of Vaccine 00:00:00 [facility] Influenza Virus 2018-09-09 Completed Universit y of Vaccine 00:00:00 [facility] Influenza Virus 2018-09-09 Completed [facility]it y of Vaccine 00:00:00 [facility] Influenza Virus 2018-09-09 Completed [facility]it y of Vaccine 00:00:00 [facility] Influenza Virus 2018-09-09 Completed [facility]it y of Vaccine 00:00:00 [facility] Influenza Virus 2018-09-09 Completed Universit y of Vaccine 00:00:[address] [facility] Influenza Virus 2018-09-09 Completed Universit y of Vaccine 00:00:00 [facility] Influenza Virus 2018-09-09 Completed Universit y of Vaccine 00:00:[address] [facility] Influenza Virus 2018-09-09 Completed Universit y of Vaccine 00:00:[address] [facility] Influenza Virus 2018-09-09 Completed Universit y of Vaccine 00:00:00 [facility] Influenza Virus 2018-09-09 Completed Universit y of Vaccine 00:00:[address] [facility] Influenza Virus 2018-09-09 Completed [facility]it y of Vaccine 00:00:[address] [facility] Influenza Virus 2018-09-09 Completed Universit y of Vaccine 00:00:00 [facility] Influenza Virus 2018-09-09 Completed Universit y of Vaccine 00:00:00 [facility] Influenza Virus 2018-09-09 Completed Universit y of Vaccine 00:00:[address] [facility] Influenza Virus 2018-09-09 Completed [facility]it y of Vaccine 00:00:00 [facility] Influenza Virus 2018-09-09 Completed Universit y of Vaccine 00:00:[address] [facility] Influenza Virus 2018-09-09 Completed Universit y of Vaccine 00:00:[address] [facility] Influenza Virus 2018-09-09 Completed [facility]it y of Vaccine 00:00:00 [facility] Influenza Virus 2018-09-09 Completed Universit y of Vaccine 00:00:[address] [facility] Influenza Virus 2018-09-09 Completed Universit y of Vaccine 00:00:[address] [facility] Influenza Virus 2018-09-09 Completed Universit y of Vaccine 00:00:00 [facility] Influenza Virus 2018-09-09 Completed Universit y of Vaccine 00:00:00 [facility] Influenza Virus 2018-09-09 Completed Universit y of Vaccine 00:00:00 [facility] Influenza Virus 2018-09-09 Completed Universit y of Vaccine 00:00:00 [facility] Pneumococcal 2016-11-02 Completed University o [...] Time Observation Value Comments Source Systolic blood 2022-07-12 06:06:00 107 mm[Hg] Univer sity of pressure [facility] Diastolic blood 2022-07-12 06:06:00 64 mm[Hg] [facility]ive [facility] of pressure [facility] Heart rate 2022-07-12 06:06:00 82 /min [facility] Respiratory rate 2022-07-12 06:06:00 24 /min [facility] Oxygen saturation in 2022-07-12 06:06:00 100 /min [facility] Arterial blood by [facility] Pulse oximetry [facility] Body temperature 2022-07-12 05:34:00 36.22 Priyanka [facility] Body height 2022-07-12 05:34:00 170.2 cm [facility] Body weight 2022-07-12 05:34:00 63.504 kg [facility] BMI 2022-07-12 05:34:00 21.93 kg/m2 [facility] Systolic blood 2022-06-10 16:54:00 125 mm[Hg] [facility] Diastolic blood 2022-06-10 16:54:00 74 mm[Hg] [facility] Heart rate 2022-06-10 16:54:00 81 /min [facility] Body temperature 2022-06-10 16:54:00 36.67 Priyanka [facility] Respiratory rate 2022-06-10 16:54:00 18 /min [facility] Oxygen saturation in 2022-06-10 16:54:00 98 /min [facility] Arterial blood by [facility]xim[facility] Body weight 2022-06-10 09:07:00 61.462 kg [facility] BMI 2022-06-10 09:07:00 21.22 kg/m2 [facility] Body height 2022-06-03 14:44:00 170.2 cm [facility] Systolic blood 2022-05-31 16:18:00 123 mm[Hg] [facility] Diastolic blood 2022-05-31 16:18:00 74 mm[Hg] [facility] Heart rate 2022-05-31 16:18:00 92 /min [facility] Body temperature 2022-05-31 16:18:00 36.78 Priyanka [facility] Respiratory rate 2022-05-31 16:18:00 18 /min [facility] Oxygen saturation in 2022-05-31 16:18:00 93 /min [facility] [place] [facility] Body weight 2022-05-30 08:33:00 53.978 kg [facility] BMI 2022-05-30 08:33:00 18.63 kg/m2 [facility] Body height 2022-05-24 20:10:00 170.2 cm [facility] Systolic blood 2022-04-17 03:35:00 110 mm[Hg] [facility] Diastolic blood 2022-04-17 03:35:00 77 mm[Hg] [facility] Heart rate 2022-04-17 03:35:00 98 /min [facility] Oxygen saturation in 2022-04-17 03:35:00 99 /min [facility] [place] [facility] Body temperature 2022-04-17 03:25:00 37.33 Priyanka [facility] Respiratory rate 2022-04-17 03:25:00 18 /min [facility] Body height 2022-04-17 03:25:00 170.2 cm [facility] Body weight 2022-04-17 03:25:00 77.111 kg [facility] BMI 2022-04-17 03:25:00 26.63 kg/m2 [facility] Systolic blood 2022-03-01 16:36:00 143 mm[Hg] [facility] Diastolic blood 2022-03-01 16:36:00 80 mm[Hg] [facility] Heart rate 2022-03-01 16:36:00 98 /min [facility] Respiratory rate 2022-03-01 16:36:00 16 /min [facility] Oxygen saturation in 2022-03-01 16:36:00 97 /min [facility] [place] [facility] Body temperature 2022-03-01 11:42:00 36.94 Priyanka [facility] Body height 2022-03-01 11:42:00 170.2 cm [facility] Body weight 2022-03-01 11:42:00 77.111 kg [facility] BMI 2022-03-01 11:42:00 26.63 kg/m2 [facility] Systolic blood 2021-11-02 17:17:00 109 mm[Hg] [facility] Diastolic blood 2021-11-02 17:17:00 67 mm[Hg] [facility] Heart rate 2021-11-02 17:17:00 84 /min [facility] Body temperature 2021-11-02 17:17:00 36.44 Priyanka [facility] Respiratory rate 2021-11-02 17:17:00 18 /min [facility] Oxygen saturation in 2021-11-02 17:17:00 95 /min [facility] by [place] [facility] Body weight 2021-11-02 09:17:00 79.969 kg [facility] BMI 2021-11-02 09:17:00 27.61 kg/m2 [facility] Body height 2021-10-31 05:46:00 170.2 cm [facility] Systolic blood 2021-04-25 22:36:00 118 mm[Hg] [facility] Diastolic blood 2021-04-25 22:36:00 70 mm[Hg] [facility] Heart rate 2021-04-25 22:36:00 68 /min [facility] Respiratory rate 2021-04-25 22:36:00 18 /min [facility] Oxygen saturation in 2021-04-25 22:36:00 99 /min [facility] by [place] [facility] Body temperature 2021-04-25 15:42:00 36.44 Priyanka [facility] Body weight 2021-04-25 15:42:00 81.647 kg [facility] BMI 2021-04-25 15:42:00 27.37 kg/m2 [facility] Systolic blood 2020-06-26 10:00:00 124 mm[Hg] [facility] Diastolic blood 2020-06-26 10:00:00 78 mm[Hg] [facility] Respiratory rate 2020-06-26 10:00:00 18 /min [facility] Oxygen saturation in 2020-06-26 10:00:00 98 /min [facility] Arterial blood by [facility] Heart rate 2020-06-26 08:56:00 98 /min [facility] Body temperature 2020-06-26 08:56:00 37.17 Priyanka [facility] Body weight 2020-06-26 08:56:00 74.844 kg [facility] BMI 2020-06-26 08:56:00 25.09 kg/m2 [facility] Systolic blood 2020-06-26 10:00:00 124 mm[Hg] [facility] Diastolic blood 2020-06-26 10:00:00 78 mm[Hg] [facility] Respiratory rate 2020-06-26 10:00:00 18 /min [facility] Oxygen saturation in 2020-06-26 10:00:00 98 /min [facility] Arterial blood by [facility] Heart rate 2020-06-26 08:56:00 98 /min [facility] Body temperature 2020-06-26 08:56:00 37.17 Priyanka [facility] Body weight 2020-06-26 08:56:00 74.844 kg [facility] BMI 2020-06-26 08:56:00 25.09 kg/m2 [facility] Systolic blood 2020-05-24 15:47:29 166 mm[Hg] [facility] Diastolic blood 2020-05-24 15:47:29 89 mm[Hg] [facility] Heart rate 2020-05-24 15:47:29 86 /min [facility] Respiratory rate 2020-05-24 15:47:29 16 /min [facility] Oxygen saturation in 2020-05-24 15:47:29 97 /min [facility] Arterial blood by [facility] Body temperature 2020-05-24 11:44:00 36.94 Priyanka [facility] Body height 2020-05-24 11:44:00 172.7 cm [facility] Body weight 2020-05-24 11:44:00 74.844 kg [facility] BMI 2020-05-24 11:44:00 25.09 kg/m2 [facility] Systolic blood 2020-05-24 15:47:29 166 mm[Hg] [facility] Diastolic blood 2020-05-24 15:47:29 89 mm[Hg] [facility] Heart rate 2020-05-24 15:47:29 86 /min [facility] Respiratory rate 2020-05-24 15:47:29 16 /min [facility] of [facility] Oxygen saturation in 2020-05-24 15:47:29 97 /min [facility] Arterial blood by [facility] P[facility] Body temperature 2020-05-24 11:44:00 36.94 Priyanka [facility] Body height 2020-05-24 11:44:00 172.7 cm [facility] Body weight 2020-05-24 11:44:00 74.844 kg [facility] BMI 2020-05-24 11:44:00 25.09 kg/m2 [facility] Systolic blood 2020-03-24 02:31:00 127 mm[Hg] [facility] Diastolic blood 2020-03-24 02:31:00 72 mm[Hg] [facility] Heart rate 2020-03-24 02:31:00 69 /min [facility] Body temperature 2020-03-24 02:31:00 36.39 Priyanka [facility] Respiratory rate 2020-03-24 02:31:00 18 /min [facility] of [facility] Oxygen saturation in 2020-03-24 02:31:00 97 /min [facility] Arterial blood by [facility] Systolic blood 2020-03-23 21:35:00 100 mm[Hg] [facility] Diastolic blood 2020-03-23 21:35:00 59 mm[Hg] [facility] Heart rate 2020-03-23 21:35:00 79 /min [facility] Body temperature 2020-03-23 21:35:00 36.78 Priyanka [facility] Respiratory rate 2020-03-23 21:35:00 18 /min [facility] Oxygen saturation in 2020-03-23 21:35:00 99 /min [facility]terial blood by [facility] Body weight 2020-03-23 09:41:00 76.613 kg [facility] BMI 2020-03-23 09:41:00 26.45 kg/m2 [facility] Body height 2020-03-23 03:43:00 170.2 cm [facility] Systolic blood 2020-03-21 20:55:00 128 mm[Hg] Un[facility]ity of [facility] Diastolic blood 2020-03-21 20:55:00 61 mm[Hg] Unive rsity of [facility] Heart rate 2020-03-21 20:55:00 75 /min [facility] Respiratory rate 2020-03-21 20:55:00 10 /min [facility] Oxygen saturation in 2020-03-21 20:55:00 98 /min [facility] Arterial blood by [facility] Pulse oximetry Branch Body temperature 2020-03-21 20:03:00 37.83 Priyanka [facility] Body height 2020-03-21 20:03:00 170.2 cm [facility] Body weight 2020-03-21 20:03:00 76.204 kg [facility] BMI 2020-03-21 20:03:00 26.31 kg/m2 [facility] Systolic blood 2020-03-07 20:50:00 118 mm[Hg] Univer [facility]ity of [facility] Diastolic blood 2020-03-07 20:50:00 65 mm[Hg] Unive rsity of [facility] Heart rate 2020-03-07 20:50:00 85 /min [facility] Body temperature 2020-03-07 20:50:00 36.39 Priyanka [facility] Respiratory rate 2020-03-07 20:50:00 18 /min [facility] Oxygen saturation in 2020-03-07 20:50:00 95 /min [facility] Arterial blood by [facility] Pulse oximetry Branch Body height 2020-03-05 02:35:00 172.7 cm [facility] Body weight 2020-03-05 02:35:00 73.483 kg [facility] BMI 2020-03-05 02:35:00 24.63 kg/m2 [facility] Systolic blood 2020-03-02 15:49:00 122 mm[Hg] Univer [facility] Diastolic blood 2020-03-02 15:49:00 81 mm[Hg] [facility] Heart rate 2020-03-02 15:49:00 89 /min [facility] Body temperature 2020-03-02 15:49:00 37.06 Priyanka [facility] Respiratory rate 2020-03-02 15:49:00 19 /min [facility] Oxygen saturation in 2020-03-02 15:49:00 96 /min [facility] Arterial blood by [facility] Pulse oximetry Branch Body height 2020-03-01 00:54:00 170.2 cm [facility] Body weight 2020-03-01 00:54:00 76.975 kg [facility] BMI 2020-03-01 00:54:00 26.58 kg/m2 [facility] Systolic blood 2020-01-17 21:08:00 116 mm[Hg] [facility] Diastolic blood 2020-01-17 21:08:00 78 mm[Hg] Unive [facility]ity of [facility] Heart rate 2020-01-17 21:08:00 88 /min [facility] Body temperature 2020-01-17 21:08:00 36.72 Priyanka [facility] Respiratory rate 2020-01-17 21:08:00 18 /min [facility] Oxygen saturation in 2020-01-17 21:08:00 98 /min [facility] Arterial blood by [facility] Pulse oximetry Branch Body height 2020-01-16 06:21:00 172.7 cm [facility] Body weight 2020-01-16 04:35:00 83.462 kg [facility] BMI 2020-01-16 04:35:00 27.98 kg/m2 [facility] Heart Rate 2022-03-10 21:29:55 [facility] Respitory Rate 2022-03-10 21:29:55 [facility] [place] Systolic (mm Hg) 2022-03-10 21:29:46 [facility] [place] Diastolic (mm Hg) 2022-03-10 21:29:46 [facility] Heart Rate 2022-03-10 21:29:46 [facility] Temperature Oral (F) 2022-03-10 21:29:23 98.4 F [facility] Heart Rate 2022-03-10 17:19:36 [facility] Respitory Rate 2022-03-10 17:19:36 [facility] [place] Systolic (mm Hg) 2022-03-10 17:19:27 [facility]it [facility] [place] Diastolic (mm Hg) 2022-03-10 17:19:27 [facility] Temperature Oral (F) 2022-03-10 17:19:27 98.4 F [facility] Systolic (mm Hg) 2022-03-10 13:15:26 Manjit [facility] Diastolic (mm Hg) 2022-03-10 13:15:26 [facility] [place] Temperature Oral (F) 2022-03-10 13:14:53 98.3 F [facility] Respitory Rate 2022-03-10 10:10:43 [facility] [place] Heart Rate 2022-03-10 03:45:00 [facility] Respitory Rate 2022-03-10 03:45:00 [facility] Temperature Oral (F) 2022-03-10 03:44:50 97.9 F [facility] Systolic (mm Hg) 2022-03-10 03:44:47 Manjit [facility] [place] Diastolic (mm Hg) 2022-03-10 03:44:47 [facility] Heart Rate 2022-03-10 03:44:47 [facility] Heart Rate 2022-03-10 00:45:38 [facility] Respitory Rate 2022-03-10 00:45:38 [facility] Systolic (mm Hg) 2022-03-10 00:45:34 Manjit [facility] [place] Diastolic (mm Hg) 2022-03-10 00:45:34 [facility] Temperature Oral (F) 2022-03-10 00:45:01 98.2 F [facility] Temperature Oral (F) 2022-03-09 21:31:00 98.6 F [facility] Systolic (mm Hg) 2022-03-09 21:30:45 Manjit [facility] [place] Diastolic (mm Hg) 2022-03-09 21:30:45 [facility] [place] Respitory Rate 2022-03-09 09:27:14 [facility] [place] Height 2022-03-05 11:53:00 170.18 cm [facility] Weight 2022-03-05 11:53:00 [facility] BMI Calculated 2022-03-05 11:53:00 [facility] Systolic blood 2021-12-25 17:15:32 115 mm[Hg] [facility] pressure Diastolic blood 2021-12-25 17:15:32 89 mm[Hg] [facility] pressure Heart rate 2021-12-25 17:15:32 89 /min [facility] Body temperature 2021-12-25 17:15:32 36.33 Priyanka [facility] Respiratory rate 2021-12-25 17:15:32 18 /[facility] Oxygen saturation in 2021-12-25 17:15:32 96 /min [facility] Arterial blood by Pulse oximetry Body weight 2021-12-25 10:05:43 73.347 kg [facility] BMI 2021-12-25 10:05:43 25.33 kg/m2 [facility] Body height 2021-12-20 12:37:00 170.2 cm [facility] Temperature Oral (F) 2013-03-07 13:44:00 98.7 F [facility] Heart Rate 2013-03-07 13:44:00 [facility] Respitory Rate 2013-03-07 13:44:00 [facility] [place] Systolic (mm Hg) 2013-03-07 13:44:00 Manjit [facility] [place] Diastolic (mm Hg) 2013-03-07 13:44:00 [facility] [place] Heart Rate 2013-03-07 09:00:00 [facility] Temperature Oral (F) 2013-03-07 09:00:00 98.1 F [facility] Diastolic (mm Hg) 2013-03-07 09:00:00 [facility] Systolic (mm Hg) 2013-03-07 09:00:00 Manjit [facility] Respitory Rate 2013-03-07 09:00:00 [facility] Diastolic (mm Hg) 2013-03-07 05:00:00 [facility] Systolic (mm Hg) 2013-03-07 05:00:00 Manjit [facility] Heart Rate 2013-03-07 05:00:00 [facility] Temperature Oral (F) 2013-03-07 05:00:00 98.1 F [facility] Respitory Rate 2013-03-07 05:00:00 [facility] Weight 2013-03-03 18:18:00 [facility] Height 2013-03-03 18:18:00 172.72 cm [facility] Height 2013-03-03 18:13:00 172.72 cm [facility] Weight 2013-03-03 18:13:00 [facility] Weight 2013-03-03 11:00:00 [facility] Height 2013-03-03 11:00:00 173 cm [facility] Height 2013-02-03 14:49:00 172.72 cm [facility] Weight 2013-02-03 14:49:00 [facility] Procedures Procedure Date / Time Performing Clinician Source Performed CBC WITH DIFF 2022-07-12 06:31:00 Suraj Guerrero [facility] COVID-19 (ID NOW RAPID 2022-06-10 17:55:00 Sridhar Gordon [facility] TESTING) [facility] POCT GLUCOSE (AUTOMATED) 2022-06-10 16:45:00 Eve Rae [facility] POCT GLUCOSE (AUTOMATED) 2022-06-10 16:43:00 Eve Rae [facility] POCT GLUCOSE (AUTOMATED) 2022-06-10 12:55:00 Eve Rae [facility] POCT GLUCOSE (AUTOMATED) 2022-06-10 09:07:00 Eve Rae [facility] BASIC METABOLIC PANEL 2022-06-10 08:53:00 Lulu Harris [facility] (NA, K, CL, CO2, GLUCOSE, Medica l Branch BUN, CREATININE, CA) CBC WITH DIFF 2022-06-10 08:53:00 Steven [facility] N-TERMINAL PRO-BNP 2022-06-10 08:53:00 Lulu Harris [facility] POCT GLUCOSE (AUTOMATED) 2022-06-10 05:08:00 [facility]) 2022-06-10 01:37:00 Eve Rae versity [facility] POCT GLUCOSE (AUTOMATED) 2022-06-09 21:52:00 [facility]UCOSE (AUTOMATED) 2022-06-09 20:11:00 [facility] PO[facility]UCOSE (AUTOMATED) 2022-06-09 16:51:00 Eve Rae [facility] POCT GLUCOSE (AUTOMATED) 2022-06-09 12:47:00 [facility] PHOSPHORUS 2022-06-09 09:39:00 Lulu Harris [facility] MAGNESIUM 2022-06-09 09:39:00 Steven [facility] BASIC METABOLIC PANEL 2022-06-09 09:39:00 Lulu Harris [facility] (NA, K, CL, CO2, GLUCOSE, Medica l Branch BUN, CREATININE, CA) N-TERMINAL PRO-BNP 2022-06-09 09:39:00 Jenise Tang [facility] POCT GLUCOSE (AUTOMATED) 2022-06-09 09:37:00 Eve Rae versity [facility] POCT GLUCOSE (AUTOMATED) 2022-06-09 05:09:00 [facility] PO[facility] GLUCOSE (AUTOMATED) 2022-06-09 01:04:00 Eve Rae versity [facility] POCT GLUCOSE (AUTOMATED) 2022-06-08 21:43:00 Eve Rae [facility] POCT GLUCOSE (AUTOMATED) 2022-06-08 16:58:00 [facility] PHOS[facility]US 2022-06-08 16:37:00 Steven [facility] MAGNESIUM 2022-06-08 16:37:00 [facility] 2022-06-08 16:37:00 Lulu Harris [facility] (NA, K, CL, CO2, GLUCOSE, Medica l Branch BUN, CREATININE, CA) CBC WITH DIFF 2022-06-08 16:37:00 Steven [facility] GLYCOSYLATED HEMOGLOBIN 2022-06-08 16:37:00 [facility] (A1C) [facility] N-TERMINAL PRO-BNP 2022-06-08 16:37:00 Alexandra Stephenson [facility] POCT GLUCOSE (AUTOMATED) 2022-06-08 12:44:00 Eve Rae [facility] POCT GLUCOSE (AUTOMATED) 2022-06-08 01:55:00 Eve Rae [facility] POCT GLUCOSE (AUTOMATED) 2022-06-07 21:47:00 Eve Rae [facility] POCT GLUCOSE (AUTOMATED) 2022-06-07 16:49:00 Eve Rae [facility] POCT GLUCOSE (AUTOMATED) 2022-06-07 12:57:00 Eve Rae [facility] POCT GLUCOSE (AUTOMATED) 2022-06-07 02:37:00 Eve Rae [facility] POCT GLUCOSE (AUTOMATED) 2022-06-06 15:37:00 Eve Rae [facility] POCT GLUCOSE (AUTOMATED) 2022-06-06 13:02:00 Eve Rae [facility] MAGNESIUM 2022-06-06 09:19:00 Heidi [facility] BASIC METABOLIC PANEL 2022-06-06 09:19:00 Sridhar Gordon [facility] (NA, K, CL, CO2, GLUCOSE, Medica l Branch BUN, CREATININE, CA) CBC WITH DIFF 2022-06-06 09:19:00 Sridhar Gordon [facility] POCT GLUCOSE (AUTOMATED) 2022-06-06 01:53:00 Eve Rae [facility] POCT GLUCOSE (AUTOMATED) 2022-06-05 21:34:00 Eve Rae [facility] POCT GLUCOSE (AUTOMATED) 2022-06-05 17:17:00 Eve Rae [facility] N-TERMINAL PRO-BNP 2022-06-05 13:47:00 Alexandra Stephenson [facility] POCT GLUCOSE (AUTOMATED) 2022-06-05 13:01:00 Eve Rae [facility] POCT GLUCOSE (AUTOMATED) 2022-06-05 01:17:00 Eve Rae [facility] POCT GLUCOSE (AUTOMATED) 2022-06-04 21:49:00 Eve Rae [facility] TRANSTHORACIC ECHO (TTE) 2022-06-04 18:56:27 Eve Rae [facility] W/ DOPPLER, COLOR Medica l Branch AND CONTRAST POCT GLUCOSE (AUTOMATED) 2022-06-04 17:15:00 Eve Rae [facility] TROPONIN I 2022-06-04 15:11:00 [facility] MET[facility]OLIC PANEL 2022-06-04 15:11:00 [facility] (NA, K, CL, CO2, GLUCOSE, Medica l Branch BUN, CREATININE, CA) CT HEAD WO CONTRAST 2022-06-04 13:40:00 [facility]) 2022-06-04 13:10:00 Eve Rae [facility] TROPONIN I 2022-06-04 01:57:00 Eve Rae [facility] POCT GLUCOSE (AUTOMATED) 2022-06-03 23:23:00 Eve Rae [facility] CT HIP LEFT WO CONTRAST 2022-06-03 19:07:02 Ric Childers [facility] URINALYSIS 2022-06-03 15:50:00 Singer [facility] HB ABO GROUPING 2022-06-03 15:42:00 Singer [facility] LACTIC ACID WHOLE BLOOD 2022-06-03 15:41:00 Singer [facility] PROTHROMBIN TIME / INR 2022-06-03 15:38:00 Singer [facility] COVID-19 (ID NOW RAPID 2022-06-03 15:38:00 Singer [facility] TESTING) Medical Branch LAB ONLY COVID 2022-06-03 15:38:00 Singer [facility] XR CHEST 1 VW 2022-06-03 15:10:00 Singer [facility] XR HIPS 3 VW LEFT 2022-06-03 15:10:00 Singer [facility] HB ECG ROUTINE & RHYTHM 2022-06-03 14:51:40 Singer [facility] STRIP [facility] LIPASE 2022-06-03 14:47:00 Singer [facility] MAGNESIUM 2022-06-03 14:47:00 Singer [facility] TROPONIN I 2022-06-03 14:47:00 Singer [facility] COMP. METABOLIC PANEL 2022-06-03 14:47:00 [id number] Branch CBC WITH DIFF 2022-06-03 14:47:00 Singer [facility] N-TERMINAL PRO-BNP 2022-06-03 14:47:00 Singer [facility] BASIC METABOLIC PANEL 2022-05-31 10:30:00 Perfecto Garnica [facility] (NA, K, CL, CO2, GLUCOSE, Medica l Branch BUN, CREATININE, CA) TROPONIN I 2022-05-31 10:30:00 [facility] COVID-19 (ID NOW RAPID 2022-05-30 21:43:00 Perfecto Garnica [facility] TESTING) Medical Branch BASIC METABOLIC PANEL 2022-05-30 08:35:00 [facility] (NA, K, CL, CO2, GLUCOSE, Medica l Branch BUN, CREATININE, CA) BASIC METABOLIC PANEL 2022-05-29 09:12:00 [facility] (NA, K, CL, CO2, GLUCOSE, Medica l Branch BUN, CREATININE, CA) N-TERMINAL PRO-BNP 2022-05-29 09:12:00 [facility] CBC WITH DIFF 2022-05-28 07:54:00 [facility] BASIC METABOLIC PANEL 2022-05-27 10:11:00 [facility] (NA, K, CL, CO2, GLUCOSE, Medica l Branch BUN, CREATININE, CA) N-TERMINAL PRO-BNP 2022-05-27 10:11:00 Db [facility] MAGNESIUM 2022-05-26 16:16:00 [facility] BASIC METABOLIC PANEL 2022-05-26 16:16:00 [facility] (NA, K, CL, CO2, GLUCOSE, Medica l Branch BUN, CREATININE, CA) TRANSTHORACIC ECHO (TTE) 2022-05-26 14:47:08 Sonny Garcia [facility] COMPLETE W/ CONTRAST Medical Bra nc D-DIMER 2022-05-25 19:54:00 Christa [facility] TROPONIN I 2022-05-25 13:57:00 Sonny Garcia [facility] BASIC METABOLIC PANEL 2022-05-25 13:57:00 Sonny Garcia [facility] (NA, K, CL, CO2, GLUCOSE, Medica l Branch BUN, CREATININE, CA) POCT GLUCOSE (AUTOMATED) 2022-05-24 16:03:00 Nilda Wayne [facility] CT ANGIOGRAM CHEST 2022-05-24 06:48:00 Davis Fam [facility] CT ANGIOGRAM 2022-05-24 06:48:00 Davis Fam [facility] ABDOMEN/PELVIS [facility] URINALYSIS 2022-05-24 06:13:00 Davis Fam [facility] XR HIPS 2 VW LEFT 2022-05-24 04:45:00 Davis Fam [facility] XR CHEST 1 VW 2022-05-24 04:44:00 Davis Fam [facility] COVID-19 (ID NOW RAPID 2022-05-24 04:28:00 Davis Fam [facility] TESTING) Medical Branch LAB ONLY COVID 2022-05-24 04:28:00 Davis Fam [facility] INTERPRETATION [facility] TROPONIN I 2022-05-24 04:22:00 Davis Fam [facility] COMP. METABOLIC PANEL 2022-05-24 04:22:00 Davis Fam [facility] ([id number]) Medical Branch CBC WITH DIFF 2022-05-24 04:22:00 Davis Fam [facility] N-TERMINAL PRO-BNP 2022-05-24 04:22:00 Kina Naranjo [facility] EKG-12 LEAD 2022-05-24 04:02:12 Davis Fam [facility] CONSENT/REFUSAL FOR 2022-04-17 03:07:20 Doctor Unassigned, [facility] DIAGNOSIS AND TREATMENT [place] [facility] XR LUMBAR SPINE 2 VW 2022-03-01 14:18:00 nAgelika Aguilar [facility] POC GLUCOSE 2021-12-25 17:17:00 [facility] CV CARDIAC PET VIABILITY 2021-12-25 16:48:27 [facility] ASS[facility] ONLY POC GLUCOSE 2021-12-25 16:13:00 [facility] POC GLUCOSE 2021-12-25 15:17:00 [facility] POC GLUCOSE 2021-12-25 14:36:00 [facility] POC GLUCOSE 2021-12-25 14:01:00 [facility] POC GLUCOSE 2021-12-25 13:17:00 [facility] HC COMPLETE BLD COUNT 2021-12-25 10:11:00 [facility] W/AUTO DIFF [place] BASIC METABOLIC PANEL 2021-12-25 10:11:00 [facility] MAGNESIUM LEVEL 2021-12-25 10:11:00 [facility] [place] PHOSPHORUS LEVEL 2021-12-25 10:11:00 [facility] ESTIMATED GFR 2021-12-25 10:11:00 Jayson Aguilar [facility] POC GLUCOSE 2021-12-25 10:08:00 Jayson Aguilar [facility] POC GLUCOSE 2021-12-25 05:58:00 Lauren [place] Lauren [facility] POC GLUCOSE 2021-12-25 04:37:00 [facility] POC GLUCOSE 2021-12-25 00:59:00 [facility] POC GLUCOSE 2021-12-24 19:03:00 Jayson Aguilar [facility] POC GLUCOSE 2021-12-24 14:07:00 [facility] BASIC METABOLIC PANEL 2021-12-24 10:06:00 James Acosta [facility] MAGNESIUM LEVEL 2021-12-24 10:06:00 James Acosta spital ESTIMATED GFR 2021-12-24 10:06:00 James Acosta spital CBC HEMOGRAM 2021-12-24 10:00:00 James Acosta spital POC GLUCOSE 2021-12-24 03:17:00 [facility] POC GLUCOSE 2021-12-24 00:27:00 [facility] POC GLUCOSE 2021-12-23 21:03:00 Lauren [facility] ECG 12-LEAD 2021-12-23 20:14:21 James Acosta spital TROPONIN T 2021-12-23 17:08:00 James Acosta spital POC GLUCOSE 2021-12-23 14:06:00 [facility] CBC HEMOGRAM 2021-12-23 09:53:00 [facility] BASIC METABOLIC PANEL 2021-12-23 09:53:00 James Acosta [facility] MAGNESIUM LEVEL 2021-12-23 09:53:00 James Acosta spital ESTIMATED GFR 2021-12-23 09:53:00 [facility] POC GLUCOSE 2021-12-23 03:23:00 [facility] POC GLUCOSE 2021-12-22 23:44:00 [facility] POC GLUCOSE 2021-12-22 17:52:00 [facility] POC GLUCOSE 2021-12-22 13:58:00 [facility] HC COMPLETE BLD COUNT 2021-12-22 11:03:00 [facility] W/AUTO DIFF BASIC METABOLIC PANEL 2021-12-22 11:03:00 [facility] ESTIMATED GFR 2021-12-22 11:03:00 [facility] POC GLUCOSE 2021-12-22 05:06:00 [facility] POC GLUCOSE 2021-12-22 00:05:00 [facility] POC GLUCOSE 2021-12-21 18:26:00 [facility] POC GLUCOSE 2021-12-21 14:02:00 [facility] ECG 12-LEAD 2021-12-21 13:37:23 [facility] HC COMPLETE BLD COUNT 2021-12-21 06:25:00 [facility] W/AUTO DIFF BASIC METABOLIC PANEL 2021-12-21 06:25:00 [facility] ESTIMATED GFR 2021-12-21 06:25:00 [facility] POC GLUCOSE 2021-12-21 03:00:00 [facility] POC GLUCOSE 2021-12-20 23:08:00 [facility] TTE COMPLETE, W CONTRAST, 2021-12-20 20:40:00 [facility] W DOPPLER ([id number]) POC GLUCOSE 2021-12-20 19:45:00 [facility] CV CARDIAC PET STRESS 2021-12-20 18:04:26 Harpreet Zhang [facility] TEST CV CARDIAC PET MYOCARDIAL 2021-12-20 18:04:26 Jono Costello [facility] PERFUSION IMAGING ANTI XA, UNFRACTIONATED 2021-12-20 16:44:00 [facility] BASIC METABOLIC PANEL 2021-12-20 10:13:00 [facility] PARTIAL THROMBOPLASTIN 2021-12-20 10:13:00 [facility] TIME (PTT) ESTIMATED GFR 2021-12-20 10:13:00 [facility] HC COMPLETE BLD COUNT 2021-12-20 10:13:00 [facility] W/AUTO DIFF POC GLUCOSE 2021-12-20 10:06:00 [facility] COVID-19 QUALITATIVE 2021-12-20 08:22:00 [facility] RT-PCR COVID-19 ANTI-SPIKE IGG 2021-12-20 08:22:00 [facility] ANTIBODY TITER COVID-19 SEROLOGY PATIENT 2021-12-20 08:22:00 [facility] SURVEILLANCE HC COMPLETE BLD COUNT 2021-12-20 08:22:00 [facility] W/AUTO DIFF BASIC METABOLIC PANEL 2021-12-20 08:22:00 [facility] HEMOGLOBIN A1C 2021-12-20 08:22:00 [facility] LIPID PANEL 2021-12-20 08:22:00 [facility] THYROID STIMULATING 2021-12-20 08:22:00 [facility] HORMONE T4, FREE 2021-12-20 08:22:00 [facility] TROPONIN T 2021-12-20 08:22:00 [facility] PROTHROMBIN TIME WITH INR 2021-12-20 08:22:00 [facility] PARTIAL THROMBOPLASTIN 2021-12-20 08:22:00 [facility] TIME (PTT) ANTI XA, UNFRACTIONATED 2021-12-20 08:22:00 [facility] ESTIMATED GFR 2021-12-20 08:22:00 [facility] SMEAR REVIEW 2021-12-20 08:22:00 [facility] POC GLUCOSE 2021-12-20 08:11:00 [facility] ECG 12-LEAD 2021-12-20 07:53:41 [facility] EXTERNAL PROVIDER RECORDS 2021-11-19 06:01:00 Doctor Unassigned, [facility] [place] [facility] POCT GLUCOSE (AUTOMATED) 2021-11-02 22:49:00 Aida Shah [facility] POCT GLUCOSE (AUTOMATED) 2021-11-02 17:06:00 Aida Shah [facility] POCT GLUCOSE (AUTOMATED) 2021-11-02 13:30:00 Aida Shah [facility] TROPONIN I 2021-11-02 09:29:00 Alexandra Stephenson [facility] BASIC METABOLIC PANEL 2021-11-02 09:29:00 Sridhar Gordon [facility] (NA, K, CL, CO2, GLUCOSE, Medica l Branch BUN, CREATININE, CA) CBC WITH DIFF 2021-11-02 09:29:00 Sridhar Gordon [facility] N-TERMINAL PRO-BNP 2021-11-02 09:29:00 Alexandra Stephenson [facility] POCT GLUCOSE (AUTOMATED) 2021-11-02 01:27:00 Aida Shah [facility] POCT GLUCOSE (AUTOMATED) 2021-11-01 17:37:00 Aida Shah [facility] POCT GLUCOSE (AUTOMATED) 2021-11-01 13:40:00 AlyssaKeerthii Nilda [facility] POCT GLUCOSE (AUTOMATED) 2021-11-01 01:10:00 AlyssaKeerthii [facility] POCT GLUCOSE (AUTOMATED) 2021-10-31 22:28:00 AlyssaKeerthii Nilda [facility] POCT GLUCOSE (AUTOMATED) 2021-10-31 17:29:00 [facility] 2021-10-31 16:25:00 Alexandra Stephenson [facility] TRANSTHORACIC ECHO (TTE) 2021-10-31 15:53:00 Alexandra Stephenson [facility] COMPLETE W/ CONTRAST Medical [facility] POCT GLUCOSE (AUTOMATED) 2021-10-31 13:39:00 Martha Drake Un [facility] TROPONIN I 2021-10-31 10:08:00 [facility] BASIC METABOLIC PANEL 2021-10-31 10:08:00 [facility] (NA, K, CL, CO2, GLUCOSE, Medica l Branch BUN, CREATININE, CA) LIPID PANEL ([id number])(TOTAL 2021-10-31 10:08:00 Alexandra Stephenson [facility] TRIGLYCERIDES, HDL) CBC WITH DIFF 2021-10-31 10:08:00 [facility] URINALYSIS 2021-10-31 10:08:00 [facility] N-TERMINAL PRO-BNP 2021-10-31 10:08:00 Alexandra Stephenson [facility] TROPONIN I 2021-10-31 06:17:00 [facility] X[facility] CHEST 1 VW 2021-10-31 01:30:56 Martha Drake [facility] LIPASE 2021-10-31 01:25:00 Martha Drake [facility] TROPONIN I 2021-10-31 01:25:00 Martha Drake [facility] COMP. METABOLIC PANEL 2021-10-31 01:25:00 Martha Drake [facility] ([id number]) Medical Branch CBC WITH DIFF 2021-10-31 01:25:00 Martha Drake [facility] GLYCOSYLATED HEMOGLOBIN 2021-10-31 01:25:00 Sarah Harrell [facility] (A1C) [facility] PROTHROMBIN TIME / INR 2021-10-31 01:25:00 Martha Drake [facility] ACTIVATED PARTIAL 2021-10-31 01:25:00 Martha Drake [facility] N-TERMINAL PRO-BNP 2021-10-31 01:25:00 Martha Drake [facility] COVID-19 (ID NOW RAPID 2021-10-31 01:25:00 Martha Drake [facility] TESTING) Medical Branch LAB ONLY COVID 2021-10-31 01:25:00 Martha Drake [facility] INTERPRETATION [facility] HB ECG ROUTINE & RHYTHM 2021-10-31 01:20:03 Martha Drake [facility] STRIP [facility] URINALYSIS 2021-04-25 21:01:00 Nallely Bhat [facility] XR LUMBAR SPINE 2 VW 2021-04-25 18:41:00 Nallely Bhat [facility] XR HIPS 2 VW LEFT 2021-04-25 18:41:00 Nallely Bhat [facility] CONSENT/REFUSAL FOR 2021-04-25 15:43:06 Doctor Unassigned, [facility] DIAGNOSIS AND TREATMENT [facility] CERVICAL SPINE WO 2020-06-26 09:35:01 Martha Drake [facility] CT LUMBAR SPINE WO 2020-06-26 09:35:01 Martha Drake [facility] CT THORACIC SPINE WO 2020-06-26 09:35:01 Martha Drake [facility] UNILATERAL DUPLEX SCAN OF 2020-05-24 14:53:40 [facility] Medical [facility] XR ANKLE 3+ VW LEFT 2020-05-24 13:22:26 Charanjit Heck [facility] HEPATIC FUNCTION PANEL 2020-05-24 13:13:00 Charanjit Heck [facility] ([id number]) (ALB,T.PRO,BILI Medical Branch T,BU/BC,ALT,AST,ALK PHOS) BASIC METABOLIC PANEL 2020-05-24 13:13:00 Charanjit Heck [facility] (NA, K, CL, CO2, GLUCOSE, Medica l Branch BUN, CREATININE, CA) CBC WITH DIFFERENTIAL 2020-05-24 13:13:00 Charanjit Heck [facility] PROTHROMBIN TIME / INR 2020-05-24 13:13:00 Charanjit Heck [facility] ACTIVATED PARTIAL 2020-05-24 13:13:00 Charanjit Heck [facility] NOTICE OF PRIVACY 2020-05-24 11:38:26 Doctor Unassigned, [facility] PRACTICES [place] [facility] [place] CONSENT/REFUSAL FOR 2020-05-24 11:35:52 [facility] DIAGNOSIS AND TREATMENT [facility] POCT GLUCOSE (AUTOMATED) 2020-03-23 22:32:00 Jamel Flores [facility] POCT GLUCOSE (AUTOMATED) 2020-03-23 18:07:00 Jamel Flores [facility] POCT GLUCOSE (AUTOMATED) 2020-03-23 14:57:00 Jamel Flores [facility] ECHO ROUTINE W/DOPPLER 2020-03-23 13:33:57 Jerome [facility] COLOR [facility] EKG-12 LEAD 2020-03-23 12:56:59 Jamel Flores [facility] MAGNESIUM 2020-03-23 11:15:00 Jerome [facility] TROPONIN I 2020-03-23 11:15:00 Jerome [facility] BASIC METABOLIC PANEL 2020-03-23 11:15:00 Jerome [facility] (NA, K, CL, CO2, GLUCOSE, Medica l Branch BUN, CREATININE, CA) PROTHROMBIN TIME / INR 2020-03-23 11:15:00 Tereza Cano [facility] ACTIVATED PARTIAL 2020-03-23 11:15:00 Jerome [facility] EKG-12 LEAD 2020-03-23 07:51:19 Jamel Flores [facility] MAGNESIUM 2020-03-23 05:55:00 Jerome [facility] TROPONIN I 2020-03-23 05:55:00 Jerome [facility] BASIC METABOLIC PANEL 2020-03-23 05:55:00 Jerome [facility] (NA, K, CL, CO2, GLUCOSE, Medica l Branch BUN, CREATININE, CA) LIPID PANEL ([id number])(TOTAL 2020-03-23 05:55:00 Tereza Cano [facility] TRIGLYCERIDES, HDL) PROTHROMBIN TIME / INR 2020-03-23 02:55:00 Sallie Eckert [facility] ACTIVATED PARTIAL 2020-03-23 02:55:00 Bab[facility] XR CHEST 2 VW 2020-03-23 01:52:37 Hayder Esteban [facility] CORONAVIRUS COVID-19 2020-03-23 00:50:00 Esteban Singletary [facility] TESTING [facility] FERRITIN SERUM 2020-03-22 23:36:00 Jerome [facility] TROPONIN I 2020-03-22 23:36:00 Esteban Singletary [facility] COMP. METABOLIC PANEL 2020-03-22 23:36:00 Esteban Singletary [facility] ([id number]) [facility] IRON PANEL 2020-03-22 23:36:00 Jerome [facility] CBC WITH DIFFERENTIAL 2020-03-22 23:36:00 Esteban Singletary [facility] N-TERMINAL PRO-BNP 2020-03-22 23:36:00 Esteban Singletary [facility] EKG-12 LEAD 2020-03-22 23:08:53 Singletary, Esteban [facility] EKG-12 LEAD 2020-03-22 23:08:15 Singletary, Esteban [place] o [facility] XR CHEST 1 VW 2020-03-21 20:42:35 Myles Harry [facility] LACTIC ACID WHOLE BLOOD 2020-03-21 20:38:00 Myles Harry [facility] LIPASE 2020-03-21 20:19:00 Myles Harry [facility] TROPONIN I 2020-03-21 20:19:00 Myles Harry [facility] COMP. METABOLIC PANEL 2020-03-21 20:19:00 Myles Harry [facility] ([id number]) [facility] PROTHROMBIN TIME / INR 2020-03-21 20:19:00 Kamryn Myles B [facility] N-TERMINAL PRO-BNP 2020-03-21 20:19:00 Myles Harry [facility] CORONAVIRUS COVID-19 2020-03-21 20:19:00 Myles Harry [facility] EKG-12 LEAD 2020-03-21 20:11:28 Myles Harry [facility] POCT GLUCOSE (AUTOMATED) 2020-03-07 20:56:00 Julio Cesar M-DAQazra [facility] POCT GLUCOSE (AUTOMATED) 2020-03-07 15:34:00 [facility] POCT GLUCOSE (AUTOMATED) 2020-03-07 12:56:00 Julio Cesar [facility] URIC ACID 2020-03-07 10:14:00 Holland Briscoe [facility] TROPONIN I 2020-03-07 10:14:00 Lulu Harris o [facility] BASIC METABOLIC PANEL 2020-03-07 10:14:00 Julio Cesar [facility] (NA, K, CL, CO2, GLUCOSE, Medica l Branch BUN, CREATININE, CA) CBC WITH DIFFERENTIAL 2020-03-07 10:14:00 Julio Cesar [facility] N-TERMINAL PRO-BNP 2020-03-07 10:14:00 [facility] POCT GLU[facility]SE (AUTOMATED) 2020-03-06 21:16:00 Julio CesarSarah [facility] POCT GLUCOSE (AUTOMATED) 2020-03-06 16:10:00 [facility] PO[facility] GLUCOSE (AUTOMATED) 2020-03-06 12:38:00 [facility] TROPONIN I 2020-03-06 08:51:00 Lulu Harris [facility] BASIC METABOLIC PANEL 2020-03-06 08:51:00 Julio Cesar [facility] (NA, K, CL, CO2, GLUCOSE, Medica l Branch BUN, CREATININE, CA) CBC WITH DIFFERENTIAL 2020-03-06 08:51:00 Julio Cesar [facility] POCT GLUCOSE (AUTOMATED) 2020-03-06 01:16:00 Julio [facility] TROPONIN I 2020-03-05 23:25:00 Julio Cesar [facility] POCT GLUCOSE (AUTOMATED) 2020-03-05 21:14:00 Julio [facility] POCT GLUCOSE (AUTOMATED) 2020-03-05 16:39:00 Julio [facility] POCT GLUCOSE (AUTOMATED) 2020-03-05 12:47:00 [facility] TROPONIN I 2020-03-05 09:50:00 Julio Cesar [facility] BASIC METABOLIC PANEL 2020-03-05 09:50:00 Edionrosalio [facility] (NA, K, CL, CO2, GLUCOSE, Medica l Branch BUN, CREATININE, CA) CBC WITH DIFFERENTIAL 2020-03-05 09:50:00 Julio Cesar [facility] EKG-12 LEAD 2020-03-05 00:36:54 Bobo Urrutia [facility] EKG-12 LEAD 2020-03-05 00:31:03 Bobo Urrutia [facility] CORONAVIRUS COVID-19 2020-03-05 00:03:00 Charanjit Heck [facility] TESTING [facility] XR CHEST 1 VW 2020-03-04 23:58:59 Charanjit Heck [facility] LIPASE 2020-03-04 23:29:00 Charanjit Heck [facility] TROPONIN I 2020-03-04 23:29:00 Charanjit Heck [facility] HEPATIC FUNCTION PANEL 2020-03-04 23:29:00 Charanjit Heck [facility] ([id number]) (ALB,T.PRO,BILI Medical [place] T,BU/BC,ALT,AST,ALK PHOS) BASIC METABOLIC PANEL 2020-03-04 23:29:00 Charanjit Heck [facility] (NA, K, CL, CO2, GLUCOSE, Medica l Branch BUN, CREATININE, CA) CBC WITH DIFFERENTIAL 2020-03-04 23:29:00 Charanjit Heck [facility] PROTHROMBIN TIME / INR 2020-03-04 23:29:00 Charanjit Heck [facility] ACTIVATED PARTIAL 2020-03-04 23:29:00 Umang [facility] THRMPLAS [facility] N-TERMINAL PRO-BNP 2020-03-04 23:29:00 Charanjit Heck [facility] EKG-12 LEAD 2020-03-04 23:15:42 Umang Charanjit [facility] EKG-12 LEAD 2020-03-04 23:10:23 Umang Charanjit [facility] EMERGENCY DEPARTMENT 2020-03-04 05:01:00 Doctor Unassigned, [facility] DOCUMENTS [facility] POCT GLUCOSE (AUTOMATED) 2020-03-02 15:52:00 Lulu Harris [facility] POCT GLUCOSE (AUTOMATED) 2020-03-02 12:39:00 Lulu Harris [facility] MAGNESIUM 2020-03-02 08:57:00 Ivory Leon [facility] BASIC METABOLIC PANEL 2020-03-02 08:57:00 Ivory Leon [facility] (NA, K, CL, CO2, GLUCOSE, Medica l Branch BUN, CREATININE, CA) N-TERMINAL PRO-BNP 2020-03-02 08:57:00 Carolyn alek [facility] POCT GLUCOSE (AUTOMATED) 2020-03-01 20:39:00 Lulu Harris [facility] MAGNESIUM 2020-03-01 08:43:00 [facility] 2020-03-01 08:43:00 Carolyn [facility] BASIC METABOLIC PANEL 2020-03-01 08:43:00 Lulu Harris [facility] (NA, K, CL, CO2, GLUCOSE, Medica l Branch BUN, CREATININE, CA) CBC WITH DIFFERENTIAL 2020-03-01 08:43:00 [facility] N-TERMINAL PRO-BNP 2020-03-01 08:43:00 Carolyn [facility] VITAMIN B12, LEVEL 2020-03-01 03:49:00 Carolyn alek [facility] FOLATE 2020-03-01 03:49:00 Carolyn [facility] SEDIMENTATION RATE 2020-03-01 03:49:00 Carolyn [facility] POCT GLUCOSE (AUTOMATED) 2020-03-01 03:39:00 Lulu Harris [facility] PHOSPHORUS 2020-03-01 02:28:00 Lulu Harris [facility] URIC ACID 2020-03-01 02:28:00 Carolyn [facility] TROPONIN I 2020-03-01 02:28:00 Carolyn [facility] HEPATIC FUNCTION PANEL 2020-03-01 02:28:00 Ivory Leon [facility] ([id number]) (ALB,T.PRO,BILI Medical Branch T,BU/BC,ALT,AST,ALK PHOS) PROTHROMBIN TIME / INR 2020-03-01 02:28:00 Carolyn alek [facility] N-TERMINAL PRO-BNP 2020-03-01 02:28:00 Lulu Harris [facility] PROCALCITONIN 2020-03-01 02:28:00 Carolyn [facility] EKG-12 LEAD 2020-03-01 01:54:29 Carolyn [facility] EKG-12 LEAD 2020-02-29 23:16:21 Bobo Urrutia [facility] XR CHEST 1 VW COVID 2020-02-29 23:14:25 Bobo Urrutia [facility] EKG-12 LEAD 2020-02-29 23:13:50 Bobo Urrutia [facility] LACTIC ACID WHOLE BLOOD 2020-02-29 22:21:00 Bobo Urrutia [facility] CORONAVIRUS COVID-19 2020-02-29 22:20:[address] [facility] CREATINE KINASE 2020-02-29 22:14:00 Carolyn [facility] URIC ACID 2020-02-29 22:14:00 Carolyn [facility] LIPASE 2020-02-29 22:14:00 Bobo Urrutia [facility] MAGNESIUM 2020-02-29 22:14:00 Carolyn [facility] TROPONIN I 2020-02-29 22:14:00 Bobo Urrutia [facility] THYROID STIMULATING 2020-02-29 22:14:[address] [facility] HORMONE [facility] BASIC METABOLIC PANEL 2020-02-29 22:14:00 Bobo Urrutia [facility] (NA, K, CL, CO2, GLUCOSE, Medica l Branch BUN, CREATININE, CA) CBC WITH DIFFERENTIAL 2020-02-29 22:14:00 Bobo Urrutia [facility] GLYCOSYLATED HEMOGLOBIN 2020-02-29 22:14:00 Carolyn [facility] (A1C) [facility] N-TERMINAL PRO-BNP 2020-02-29 22:14:00 Carolyn alek [facility] EKG-12 LEAD 2020-02-29 21:59:12 Bobo Urrutia [facility] EKG-12 LEAD 2020-02-29 21:48:49 Bobo Urrutia [facility] EMERGENCY DEPARTMENT 2020-02-29 05:01:00 Doctor Unassigned, [facility] DOCUMENTS [facility] POCT GLUCOSE (AUTOMATED) 2020-01-17 18:15:00 Julio [facility] TROPONIN I 2020-01-17 16:31:00 Julio Cesar [facility] ACTIVATED PARTIAL 2020-01-17 16:31:[address] [facility] POCT GLUCOSE (AUTOMATED) 2020-01-17 11:56:00 Julio C[facility] TROPONIN I 2020-01-17 09:52:00 [facility] METABOLIC PANEL 2020-01-17 09:52:00 [facility] (NA, K, CL, CO2, GLUCOSE, Medica l Branch BUN, CREATININE, CA) CBC WITH DIFFERENTIAL 2020-01-17 09:52:00 [facility] 2020-01-17 09:52:00 [facility]SE (AUTOMATED) 2020-01-16 23:59:00 Julio [facility] EKG-12 LEAD 2020-01-16 22:15:50 Julio Cesar [facility] TROPONIN I 2020-01-16 20:04:00 Julio Cesar [facility] ACTIVATED PARTIAL 2020-01-16 20:04:[address] [facility] POCT GLUCOSE (AUTOMATED) 2020-01-16 17:05:00 Julio [facility] POCT GLUCOSE (AUTOMATED) 2020-01-16 13:38:00 Julio Cesar [facility] TROPONIN I 2020-01-16 11:11:00 Julio Cesar [facility] LIPID PANEL ([id number])(TOTAL 2020-01-16 11:11:00 Sarah Harrell [facility] CHOLESTEROL, [facility] TRIGLYCERIDES, HDL) ACTIVATED PARTIAL 2020-01-16 11:11:00 Julio Cesar [facility] CRITICAL CARE 2020-01-16 05:48:18 Charanjit Heck [facility] XR CHEST 1 VW 2020-01-16 04:46:44 Charanjit Heck [facility] TROPONIN I 2020-01-16 04:38:00 Charanjit Heck [facility] HEPATIC FUNCTION PANEL 2020-01-16 04:38:00 Charanjit Heck [facility] ([id number]) (ALB,T.PRO,BILI Medical Branch T,BU/BC,ALT,AST,ALK PHOS) BASIC METABOLIC PANEL 2020-01-16 04:38:00 [facility] Healthcare[facility] (NA, K, CL, CO2, GLUCOSE, Medica l Branch BUN, CREATININE, CA) CBC WITH DIFFERENTIAL 2020-01-16 04:38:00 Umang Charanjit [facility] GLYCOSYLATED HEMOGLOBIN 2020-01-16 04:38:00 [facility] PROTHROMBIN TIME / INR 2020-01-16 04:38:00 Charanjit Heck [facility] ACTIVATED PARTIAL 2020-01-16 04:38:00 Umang [facility] N-TERMINAL PRO-BNP 2020-01-16 04:38:00 Charanjit Heck [facility] EKG-12 LEAD 2020-01-16 04:37:48 Charanjit Heck [facility] EKG-12 LEAD 2020-01-16 04:35:35 Charanjit Heck [facility] AUTHORIZATION FOR RELEASE 2019-07-12 05:01:00 Doctor Unassigned, [facility] Coronary artery bypass [facility] graft Tonsillectomy [facility] Ne[facility] 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 Vasectomy [facility] Tonsillectomy [facility] Plan of Care Planned Activity Planned Date Details Comments Source Future Scheduled 2022-07-03 HE[facility]ITIS B [facility] 03:27:45 VACCINES (1 of 3 - 3-dose series) [code = HEPATITIS B VACCINES (1 of 3 - 3-dose series)] Future Scheduled 2022-07-03 DIABETIC FOOT EXAM [facility] 03:27:45 [code = DIABETIC FOOT EXAM] Future Scheduled 2022-07-03 DIABETES: RETINAL [facility] Test 03:27:45 EYE EXAM [code = DIABETES: RETINAL EYE EXAM] Future Scheduled 2022-07-03 SHINGLES VACCINES [facility] Test 03:27:45 (1 of 2) [code = SHINGLES VACCINES (1 of 2)] Future Scheduled 2022-07-03 COVID-19 VACCINE (3 [facility] Test 03:27:45 - Booster for Moderna series) [code = COVID-19 VACCINE (3 - Booster for Moderna series)] Future Scheduled 2022-07-03 INFLUENZA VACCINE [facility] Test 03:27:45 [code = INFLUENZA VACCINE] Future Scheduled 2022-06-03 DIABETIC FOOT EXAM [facility] [...] Facility Department ID 2022-03-06 Outpatient [facility] [id number] [place] 08:51:10 [id number] Health 2021-12-16 Inpatient SERA Villavicencio [id number] [facility] 11:30:00 [facility] 2021-12-16 [facility] [id number] Common 09:19:01 [facility] 2021-12-[address] [facility] [id number] Common 14:38:21 Anneliese [facility] 2021-12-[address] [facility] [id number] Common 11:50:18 Anneliese [id number] [facility] 2021-09-16 Emergency [facility] [id number] Univers 00:23:34 ity of [facility] 2021-09-13 Emergency [facility] [id number] Univers 11:42:35 ity of [facility] 2021-09-13 Emergency [facility] [id number] Univers 05:40:48 ity of [facility] 2022-07-12 2022-07-12 Emergency X [facility] ERT [id number] Univers 00:31:00 01:59:00 FOLUSHO ity [facility] 2022-07-12 2022-07-12 Emergency [facility] [id number] Univers 00:31:00 01:59:00 Suraj RAMSEY [id number] ity of [place] [id number] [facility] [id number] [facility] 084 Branch 2022-06-11 2022-06-11 Transition BELINDA MariaKvng [id number] Univers 00:00:00 00:00:00 of Care Supa GREWAL [id number] [place]y of [place] [id number] [facility] [id number] [facility] 403 Branch 2022-06-03 2022-06-10 Inpatient X KYRA [facility] [id number] Univers 09:43:00 16:00:00 EVE leon [facility] 2022-06-03 2022-06-10 [facility] Ric Childers [facility] 1.2.840.1 [id number] Univers 09:43:00 16:00:00 Encounter Eve Rae [id number] [facility] [id number] [facility] [id number] [facility] 081 Branch 2022-06-02 2022-06-02 Transition SHAREE Silva [id number] Univers 00:00:00 00:00:00 of Marguerite GREWAL [id number] it y [id number] [id number] [facility] 403 Branch 2022-05-23 2022-05-31 Inpatient X PERFECTO GARNICA [facility] [id number] Univers 23:06:00 16:10:00 PERFECTO GARNICA [facility] 2022-05-23 2022-05-31 Hospital Davis Fam [facility] 1.2.840.11 [id number] Univers 23:06:00 16:10:00 [facility]counter [facility] 350.1. 13.10 ity of [place] [id number] [place] as [facility] [id number] [facility] RainerprYamel [facility] [address] [facility] ([facility]) 2022-04-23 2022-04-23 ambulatory STLMLC STLC [id number] Common 00:00:00 00:00:00 [facility] 2022-04-16 2022-04-16 Emergency X [facility] ERT [id number] Univers 22:29:00 23:27:00 [facility] 2022-04-16 2022-04-16 Emergency [facility] [id number] Univers 22:29:00 23:27:00 Luz S ROXY [id number] i [id number] [id number] [facility] 084 Branch 2022-03-05 2022-03-11 Inpatient [facility] [id number] Memoria 11:12:00 03:30:[address] 2022-03-05 2022-03-11 Inpatient [facility] [id number] Memoria 11:12:00 03:30:[address] 2022-03-05 2022-03-10 Inpatient U [facility] [address] [facility] 06:12:00 22:30:00 BRODIE 2022-03-05 2022-03-10 Outpatient Miguel [facility] [id number] 06:12:00 22:30:00 Brodie Singletary 2022-03-05 2022-03-05 Outpatient Miguel [facility] [id number] 06:12:00 06:12:00 Brodie Singletary 2022-03-01 2022-03-01 Emergency [facility] [id number] Univers 06:52:00 12:04:00 ANGELIKA leon [facility] 2022-03-01 2022-03-01 Emergency [facility] [id number] Univers 06:52:00 12:04:00 Angelika RAMSEY [id number] carolyn [facility] [id number] [facility] [id number] [address] 2021-12-25 2021-12-25 [facility] Attar, 1.2.840.1 [id number] Methodi 07:00:00 23:59:00 Encounter Jono [id number] 356 s t 3.430.2.7 Hospit a .[id number] l .8 2021-12-25 2021-12-25 [facility] Trang, 1.2.840.1 [id number] Methodi 07:00:00 23:59:00 Encounter Jono [id number] 356 s t 3.430.2.7 Hospit a .3.461172 l .8 2021-12-19 2021-12-25 [facility] Lauren, 1.2.840.1 [id number] Methodi 23:41:00 17:49:00 Encounter Jayson Aguilar [id number] 3.430.2.7 Hospit a .3.490534 l .8 2021-12-19 2021-12-25 [facility] Lauren 1.2.840.1 [id number] Methodi 23:41:00 17:49:00 Encounter Jayson Aguilar [id number] 3.430.2.7 Hospit a .3.867794 l .8 2021-12-24 2021-12-24 ambulatory STLMLC STLMLC [id number] Common 00:00:00 00:00:00 [facility] 2021-12-20 2021-12-20 [facility] Attar, 1.2.840.1 [id number] Methodi 11:00:00 23:59:00 Encounter Jono [id number] 193 s t 3.430.2.7 Hospit a .3.751615 l .8 2021-12-20 2021-12-20 [facility] Attar, 1.2.840.1 [id number] Methodi 11:00:00 23:59:00 Encounter Jono [id number] 193 s t 3.430.2.7 Hospit a .3.384601 l .8 2021-12-17 2021-12-17 ambulatory STLMLC STLMLC [id number] Common 00:00:00 00:00:00 [facility] 2021-12-16 2021-12-16 ambulatory STLMLC STLMLC [id number] Common 00:00:00 00:00:00 [facility] 2021-11-19 2021-11-19 Orders Doctor ROBERT [id number] [id number] 00:00:00 00:00:00 Only Unassigned, ASHLEIGH [id number] ity of [place] [facility] [id number] Griffin as [id number] [facility] 009 Branch 2021-11-04 2021-11-04 Transition SHAREE Maria [id number] [facility] 00:00:00 00:00:00 of Care Supa Adela GREWAL [id number] [id number] [phone] [facility] [address] 2021-10-30 2021-11-02 Inpatient X ALYSSA [facility] [id number] Univers 19:14:00 18:15:00 AIDA ity of [facility] 2021-10-30 2021-11-02 [facility] 1.2.840. [id number] Univers 19:14:00 18:15:00 Encounter Aida Shah [id number] ity of [place] [id number] [place] [address] [phone] [facility] [address] 2021-05-17 2021-05-17 Letter PcpROBERT 1.2.840.114 [id number] Univers 00:00:00 00:00:00 (Out) Patient ASHLEIGH 350.1.13.10 it y of [facility] 4[place].7.2.68 [place] A [phone] [facility] [address] 2021-04-25 2021-04-25 Emergency Cece, TRAUMA 1.2.022.829 [id number] Univers 10:43:00 17:38:00 [facility] 350.1.13.10 i ty of [facility] 4.2.7.2.[address] [place] [address] [id number] [facility] [address] 2020-06-26 2020-06-26 Emergency [facility] 1.2.087.824 [id number] Univers 03:50:00 06:45:00 Martha Ramsey 350.1.13.10 ity of [place] 4.2.7.2.[address] [place] [address] [phone] [facility] [address] 2020-06-26 2020-06-26 [facility] 1.2.196.118 [id number] 03:50:00 06:45:00 Martha Ramsey 350.1.13.10 [place] 4.2.7.[address] [place] [address] [id number] 084 2020-05-24 2020-05-24 [facility] 1.2.539.168 [id number] Univers 06:40:47 10:54:00 Charanjit Ramsey 350.1.13.10 i ty of [place] 4.2.7.2.[address] [place] [address] [phone] [facility] [address] [place] 2020-05-24 2020-05-24 Emergency Umang [facility] 1.2.285.239 [id number] 3245 06:40:47 10:54:00 Charanjit Ramsey 350.1.13.10 [place] 4.2.7.2.686 [place] [phone] 084 2020-03-29 2020-03-29 Jamel Dunn 1.2.840.114 [id number] Univers 00:00:00 00:00:00 (Out) T Ashleigh 350.1.13.10 it y of Hospital 4.2.7.2.686 [place] [phone] [address] 2020-03-29 2020-03-29 Jamel Dunn 1.2.840.114 [id number] 00:00:00 00:00:00 (Out) T Ashleigh 350.1.13.10 [facility] 4.2.7.2.686 [id number] [facility] 2020-03-26 2020-03-26 Transition Sharee George 1.2.840.114 [id number] Univers 00:00:00 00:00:00 of Care Sherrell Grewal 350.1.13.10 it y of [place] 4.2.7.2.686 [place] [phone] [facility] [address] [place] 2020-03-26 2020-03-26 Transition Ariel Belindakvng 1.2.840.114 [id number] 00:00:00 00:00:00 of Care Sherrell Grewal 350.1.13.10 [place] 4.2.7.2.686 [id number] [facility] 2020-03-22 2020-03-23 Emergency AuroraalexanderSallie 1.2.840. 114 [id number] Univers 18:02:47 21:55:00 Jamel Flores 350.1.13.10 ity of [facility] 4.2.7.2.686 [place] [id number] [address] 2020-03-22 2020-03-23 Outpatient X JAMEL FLORES [facility] [id number] Univers 18:02:47 21:55:00 ity of [facility] 2020-03-21 2020-03-21 Emergency Kamryn, [facility] 1.2.840.114 [id number] Univers 15:02:08 17:16:00 Mylesazra Ramsey 350.1.13.10 i ty of [place] 4.2.7.2.686 [facility] [id number] [address] 2020-03-21 2020-03-21 Emergency X KAMRYN, [facility] ERT [id number] Univers 15:02:08 17:16:00 MYLES ity [facility] 2020-03-13 2020-03-13 Outpatient Raju_P MMG MMG [id number] [place] 05:24:00 05:24:00 0428 [facility] 2020-03-08 2020-03-08 Transition Sharee Cool 1.2.840.114 [id number] Univers 00:00:00 00:00:00 of Care Prema Grewal 350.1.13.10 i ty of [place] [id number] [address] 2020-03-04 2020-03-07 [facility] Umang Charanjit [facility] 1.2.840.1 14 [id number] Univers 18:01:05 18:00:00 Encounter Sarah Harrell Roxy 350.1.13.10 ity of [place] 4.2.7.2.686 [facility] [phone] [address] 2020-03-04 2020-03-07 Inpatient X JULIO CESAR [facility] [id number] Univers 18:01:05 18:00:00 SARAH ity of [facility] 2020-03-03 2020-03-03 Transition Sharee Silva 1.2.840.114 [id number] Univers 00:00:00 00:00:00 of Care Isatu Twan 350.1.13.10 it y of [place] [id number] [address] 2020-02-29 2020-03-02 [facility] Bobo Urrutia [facility] 1.2.840.11 [id number] Univers 16:53:09 12:18:00 Encounter Lulu Harris 350.1.13.10 [place] [id number] [place] 028381 [place] 2020-02-29 2020-03-02 Inpatient X STEVEN [facility] ZEFERINO [id number] Univers 16:53:09 12:18:00 LULU leon [facility] 2020-02-15 2020-02-15 Outpatient R CHAVA [facility] [id number] Univers 11:30:00 11:30:00 ROSEMARY leon [facility] 2020-02-15 2020-02-15 [facility] 1.2.840.114 [id number] Univers 08:13:42 08:43:42 ne Visit Rosemary Ramsey 350.1.13.10 [place] Profess[place] [phone] Wa dical nal [address] 2020-01-18 2020-01-18 Transition Sharee Harvey 1.2.840.114 [id number] Univers 00:00:00 00:00:00 of Care Ana M Grewal 350.1.13.10 it y of [place] 4.2.7.2.[place] [id number] [facility] [address] 2020-01-15 2020-01-17 [facility] Charanjit Heck [facility] 1.2.840.1 14 [id number] Univers 22:33:37 16:58:00 Encounter Sarah Harrell 350.1.13.10 it[place] [phone] [place] 028[address] [place] 2020-01-15 2020-01-17 Outpatient X JULIO CESAR [facility] ZEFERINO [id number] Univers 22:33:37 16:58:00 SARAH leon [facility] 2019-10-07 2019-10-07 Outpatient Ko Gant [id number] Common 10:48:00 10:48:00 [facility] 2019-10-05 2019-10-05 Outpatient Ko Gant [id number] Common 16:06:00 16:06:00 t [facility] [address] [facility] 2019-07-27 2019-07-27 Refill TIARA Larsen 1.2.840.114 [id number] Univers 00:00:00 00:00:00 Rosemary Ramsey 350.1.13.10 i ty of [place] 4[place]2.[place] [phone] Wa dical nal [address] [facility] 2019-07-12 2019-07-12 [facility] [id number] Common 16:24:00 16:24:00 [facility] [address] [facility] 2019-07-12 2019-07-12 Orders Doctor JONES 1.2.840.114 [id number] Univers 00:00:00 00:00:00 Only Unassigned, ASHLEIGH 350.1.13.10 ity of [place] [facility] 4.2.7.2.686 [place] [phone] [address] 2019-07-06 2019-07-06 [facility] [id number] Common 14:00:00 14:00:00 [facility] [address] [facility] 2013-03-03 2013-03-07 Inpatient nullFlavo [place] [id number] Memoria 09:30:00 09:25:00 r [facility] 01 l [place] 2013-03-03 2013-03-07 Inpatient nullFlavo MH [id number] Memoria 09:30:00 09:25:00 [facility] 01 l [place] 2013-02-03 2013-02-03 MARIA E nullFlavo MH [id number] 75 Mem[facility] 08:45:00 11:45:00 r [place] 00 l [place] 2013-02-03 2013-02-03 MARIA E nullFlavo MH [id number] 75 [facility] 08:45:00 11:45:00 r [facility] 00 manasa Benavides Results Test Description Test Time Test Comments Results Result Comments Source CBC WITH DIFF 2022-07-12 06:33:34 Test Item Value Reference Range Interpretation Comme nts WBC (test code = 6690-2) See_Comment [A utomated message] The system which ge nerated this result transmit diamante reference range: 4.20 - 1 0.70 10*3/?L. The reference r corey was not used to interpr et this result as normal/abnor mal. RBC (test code = 789-8) See_Comment L [Au tomated message] The system which [employer] nerated this result transmit diamante reference range: 4.26 - 5 .52 10*6/?L. The reference r corey was not used to interpr et this result as normal/abnor mal. HGB (test code = 718-7) 11.0 g/dL 12.2-16.4 L HCT (test code = 4544-3) 32.3 % 38.4-49.3 L MCV (test code = 787-2) 95.0 fL 81.7-95.6 MCH (test code = 785-6) 32.4 pg 26.1-32.7 MCHC (test code = 786-4) 34.1 g/dL 31.2-35 RDW-SD (test code = 35229-3) 50.7 fL 38.5-51.6 RDW-CV (test code = 788-0) 14.8 % 12.1-15.4 PLT (test code = 777-3) See_Comment [Au tomated message] The system which [employer] nerated this result transmit diamante reference range: 150 - 32 8 10*3/?L. The reference range was not used to interpret th is result as normal/abnormal . MPV (test code = 35149-0) 9.4 fL 9.8-13 L NRBC/100 WBC (test code = See_Comment [ Automated message] The 8224080008) system which [employer] nerated this result transmit diamante reference range: 0.0 - 10 .0 /100 WBCs. The reference r corey was not used to interpr et this result as normal/abnor mal. NRBC x10^3 (test code = See_Comment [Au tomated message] The 9054385271) system which [employer] nerated this result transmit diamante reference range: 10*3/?L. The reference range was not u sed to interpret this result as normal/abnormal . GRAN MAT (NEUT) % (test code 67.3 % = 770-8) IMM GRAN % (test code = 0.20 % 4612737949) LYMPH % (test code = 736-9) 20.2 % MONO % (test code = 5905-5) 9.9 % EOS % (test code = 713-8) 1.7 % BASO % (test code = 706-2) 0.7 % GRAN MAT x10^3(ANC) (test 3.99 10*3/uL 1.99-6.95 code = 7382147191) IMM GRAN x10^3 (test code = 0-0.06 9369169251) LYMPH x10^3 (test code = 1.20 10*3/uL 1.09-3.23 731-0) MONO x10^3 (test code = 0.59 10*3/uL 0.36-1.02 742-7) EOS x10^3 (test code = 0.10 10*3/uL 0.06-0.53 711-2) BASO x10^3 (test code = 0.04 10*3/uL 0.01-0.09 704-7) Lab Interpretation (test Abnormal code = 54968-2) [facility] GLUCOSE (AUTOMATED)2022-06-10 16:54:59 Test Item Value Reference Range Interpretation Comments POCT GLU (test code = 4636020142) 301 mg/dL 70-110 H Lab Interpretation (test code = Abnormal 60503-8) [facility] GLUCOSE (AUTOMATED)2022-06-10 16:54:59 Test Item Value Reference Range Interpretation Comments POCT GLU (test code = 8860449448) 163 mg/dL 70-110 H Lab Interpretation (test code = Abnormal 79710-1) [facility] GLUCOSE (AUTOMATED)2022-06-10 13:27:49 Test Item Value Reference Range Interpretation Comments POCT GLU (test code = 1848020668) 177 mg/dL 70-110 H Lab Interpretation (test code = Abnormal 04311-7) [facility] GLUCOSE (AUTOMATED)2022-06-10 09:33:01 Test Item Value Reference Range Interpretation Comments POCT GLU (test code = 6736480101) 179 mg/dL 70-110 H Lab Interpretation (test code = Abnormal 69532-5) [facility] GLUCOSE (AUTOMATED)2022-06-10 05:14:48 Test Item Value Reference Range Interpretation Comments POCT GLU (test code = 7622089484) 223 mg/dL 70-110 H Lab Interpretation (test code = Abnormal 82087-3) [facility] GLUCOSE (AUTOMATED)2022-06-10 01:41:35 Test Item Value Reference Range Interpretation Comments POCT GLU (test code = 7637953237) 213 mg/dL 70-110 H Lab Interpretation (test code = Abnormal 40292-6) [facility] GLUCOSE (AUTOMATED)2022-06-09 21:56:12 Test Item Value Reference Range Interpretation Comments POCT GLU (test code = 6238999347) 233 mg/dL 70-110 H Lab Interpretation (test code = Abnormal 74396-9) [facility] GLUCOSE (AUTOMATED)2022-06-09 21:56:07 Test Item Value Reference Range Interpretation Comments POCT GLU (test code = 5729314752) 223 mg/dL 70-110 H Lab Interpretation (test code = Abnormal 98210-5) [facility] GLUCOSE (AUTOMATED)2022-06-09 17:25:54 Test Item Value Reference Range Interpretation Comments POCT GLU (test code = 1757947636) 310 mg/dL 70-110 H Lab Interpretation (test code = Abnormal 10531-8) [facility] GLUCOSE (AUTOMATED)2022-06-09 13:11:43 Test Item Value Reference Range Interpretation Comments POCT GLU (test code = 9627470955) 221 mg/dL 70-110 H Lab Interpretation (test code = Abnormal 60089-3) [facility] GLUCOSE (AUTOMATED)2022-06-09 12:31:00 Test Item Value Reference Range Interpretation Comments POCT GLU (test code = 0352292008) 157 mg/dL 70-110 H Lab Interpretation (test code = Abnormal 09941-1) [facility] GLUCOSE (AUTOMATED)2022-06-09 10:39:53 Test Item Value Reference Range Interpretation Comments POCT GLU (test code = 9980180868) 185 mg/dL 70-110 H Lab Interpretation (test code = Abnormal 80214-8) [facility] GLUCOSE (AUTOMATED)2022-06-09 05:11:06 Test Item Value Reference Range Interpretation Comments POCT GLU (test code = 5217165844) 213 mg/dL 70-110 H Lab Interpretation (test code = Abnormal 05010-4) [facility] GLUCOSE (AUTOMATED)2022-06-09 01:07:59 Test Item Value Reference Range Interpretation Comments POCT GLU (test code = 2460787070) 192 mg/dL 70-110 H Lab Interpretation (test code = Abnormal 59869-7) [facility] GLUCOSE (AUTOMATED)2022-06-08 21:46:21 Test Item Value Reference Range Interpretation Comments POCT GLU (test code = 0718779915) 234 mg/dL 70-110 H Lab Interpretation (test code = Abnormal 58518-8) [facility] GLUCOSE (AUTOMATED)2022-06-08 17:00:47 Test Item Value Reference Range Interpretation Comments POCT GLU (test code = 8706554826) 449 mg/dL 70-110 H Lab Interpretation (test code = Abnormal 96256-9) [facility] GLUCOSE (AUTOMATED)2022-06-08 14:24:36 Test Item Value Reference Range Interpretation Comments POCT GLU (test code = 7480992246) 464 mg/dL 70-110 HH Lab Interpretation (test code = Abnormal 41639-9) [facility] GLUCOSE (AUTOMATED)2022-06-08 00:49:10 Test Item Value Reference Range Interpretation Comments POCT GLU (test code = 1227737304) 191 mg/dL 70-110 H Lab Interpretation (test code = Abnormal 05684-9) [facility] GLUCOSE (AUTOMATED)2022-06-07 22:27:35 Test Item Value Reference Range Interpretation Comments POCT GLU (test code = 7138329619) 207 mg/dL 70-110 H Lab Interpretation (test code = Abnormal 23301-0) [facility] GLUCOSE (AUTOMATED)2022-06-07 17:00:27 Test Item Value Reference Range Interpretation Comments POCT GLU (test code = 4852480604) 189 mg/dL 70-110 H Lab Interpretation (test code = Abnormal 39109-0) [facility] GLUCOSE (AUTOMATED)2022-06-07 02:39:27 Test Item Value Reference Range Interpretation Comments POCT GLU (test code = 4424690103) 232 mg/dL 70-110 H Lab Interpretation (test code = Abnormal 59478-4) [facility] GLUCOSE (AUTOMATED)2022-06-07 02:39:22 Test Item Value Reference Range Interpretation Comments POCT GLU (test code = 5545933885) 265 mg/dL 70-110 H Lab Interpretation (test code = Abnormal 22405-3) [facility] GLUCOSE (AUTOMATED)2022-06-06 13:16:34 Test Item Value Reference Range Interpretation Comments POCT GLU (test code = 4682208391) 237 mg/dL 70-110 H Lab Interpretation (test code = Abnormal 53564-8) [facility] GLUCOSE (AUTOMATED)2022-06-06 13:02:26 Test Item Value Reference Range Interpretation Comments POCT GLU (test code = 2938411462) 189 mg/dL 70-110 H Lab Interpretation (test code = Abnormal 90059-6) [facility] 11:42:18 Test Item Value Reference Range Interpretation Comments MAGNESIUM (test code = 3971689061) 2.1 mg/dL 1.7-2.4 Lab Interpretation (test code = Normal 85859-6) [facility] METABOLIC PANEL (NA, K, CL, CO2, GLUCOSE, BUN, CREATININE, CA)2022-06-06 11:41:58 Test Item Value Reference Range Interpretation Comments NA (test code = 140 mmol/L 135-145 4958007629) K (test code = 3.8 mmol/L 3.5-5 7890747191) CL (test code = 100 mmol/L 98-108 0393432503) CO2 TOTAL (test code = 31 mmol/L 23-31 5083433518) AGAP (test code = 2-16 0143888202) BUN (test code = 25 mg/dL 7-23 H 8736648981) GLUCOSE (test code = 109 mg/dL 70-110 2189009859) CREATININE (test code = 1.05 mg/dL 0.6-1.25 5509688775) CALCIUM (test code = 9.7 mg/dL 8.6-10.6 7379829141) eGFR (test code = mL/min/1.73m2 8134370094) ALYSSA (test code = ALYSSA) Association of [...] tests). Lab Interpretation Abnormal (test code = 94595-1) [facility] WITH [id number] 10:01:27 Test Item Value Reference Range Interpretation Comments WBC (test code = See_Comment [Automated 0743-2) message] The sy stem which generated this [...] RDW-SD (test code = 49.9 fL 38.5-51.6 05313-9) RDW-CV (test code = 14.1 % 12.1-15.4 788-0) PLT (test code = See_Comment [Automated 777-3) message] The sy stem which generated this result transmitted reference range : 150 - 328 10*3/ ?L. The reference r corey was not used to interpret this result as normal/abnormal . MPV (test code = 10.1 fL 9.8-13 32228-7) NRBC/100 WBC (test See_Comment [Automat ed code = 4892078061) message] The system which generated this result transmitted reference range : 0.0 - 10.0 /100 WBCs. The refer ence range was not u sed to interpret th is result as normal/abnormal . NRBC x10^3 (test code See_Comment [Auto mated = 1020014897) message] The s ystem which generated this result transmitted reference range : 10*3/?L. The reference range was not used to interpret this result as normal/abnormal . GRAN MAT (NEUT) % 66.3 % (test code = 770-8) IMM GRAN % (test code 0.40 % = 5356563347) LYMPH % (test code = 20.7 % 736-9) MONO % (test code = 8.4 % 5905-5) EOS % (test code = 3.5 % 713-8) BASO % (test code = 0.7 % 706-2) GRAN MAT x10^3(ANC) 5.08 10*3/uL 1.99-6.95 (test code = 6915465626) IMM GRAN x10^3 (test 0.03 10*3/uL 0-0.06 code = 0834303120) LYMPH x10^3 (test code 1.58 10*3/uL 1.09-3.23 = 731-0) MONO x10^3 (test code 0.64 10*3/uL 0.36-1.02 = 742-7) EOS x10^3 (test code = 0.27 10*3/uL 0.06-0.53 711-2) BASO x10^3 (test code 0.05 10*3/uL 0.01-0.09 = 704-7) Lab Interpretation Abnormal (test code = 01715-3) [facility] 01:58:35 Test Item Value Reference Range Interpretation Comments POCT GLU (test code = 9141927179) 119 mg/dL 70-110 H Lab Interpretation (test code = Abnormal 88426-9) [facility] ([facility]E)2022-06-05 18:49:03 Test Item Value Reference Range Interpretation Comments Height (test code = in 8573957938) Weight (test code = lbs 2454946839) Systolic BP (test code = mmHg 9402111515) Diastolic BP (test code mmHg = 4047505459) Heart Rate (test code = bpm 5645868974) BSA (test code = 1.73 m2 1420748837) LVIDD (test code = 5.60 cm 5571721598) IVS (test code = 0.83 cm 5765041223) Interventricular Septum 0.83 cm Diastolic Thickness by 2D (test code = 3761178) LVPWD (test code = 0.83 cm 5042675015) PW (test code = 0.83 cm 0.6-1.2 0736868042) EF(Teich) (test code = 14.30 % 5199369648) LVIDS (test code = 5.20 cm 1354415399) FS (test code = 7 % 1732286210) EF - 2D (test code = 14.30 % 41422711) Radiology Study observation (narrative) (test code = 68733-5) ALYSSA (test code = ALYSSA) Formatting of [...] mL of Lumason ultrasound enhancing agent used. [facility] GLUCOSE (AUTOMATED)2022-06-05 17:20:01 Test Item Value Reference Range Interpretation Comments POCT GLU (test code = 2751597561) 177 mg/dL 70-110 H Lab Interpretation (test code = Abnormal 95523-8) [facility] [id number] 14:30:25 Test Item Value Reference Range Interpretation Comments NT-proBNP (test code 3520 pg/mL See_Comment H [Autom ated = 1338974437) message] The system which generated this result transmitted reference range : <=450. The reference range was not used to interpret this result as normal/abnormal . ALYSSA (test code = ALYSSA) Biotin has been reported to cause a negative bias, interpret results relative to patient's use of biotin. Lab Interpretation Abnormal (test code = 89865-9) [facility] GLUCOSE (AUTOMATED)2022-06-05 13:06:52 Test Item Value Reference Range Interpretation Comments POCT GLU (test code = 5087712260) 196 mg/dL 70-110 H Lab Interpretation (test code = Abnormal 13001-5) [facility] GLUCOSE (AUTOMATED)2022-06-05 01:19:44 Test Item Value Reference Range Interpretation Comments POCT GLU (test code = 0101768212) 160 mg/dL 70-110 H Lab Interpretation (test code = Abnormal 34130-4) [facility] GLUCOSE (AUTOMATED)2022-06-04 21:53:21 Test Item Value Reference Range Interpretation Comments POCT GLU (test code = 3175051101) 179 mg/dL 70-110 H Lab Interpretation (test code = Abnormal 14412-3) [facility] GLUCOSE (AUTOMATED)2022-06-04 17:18:37 Test Item Value Reference Range Interpretation Comments POCT GLU (test code = 8482667225) 208 mg/dL 70-110 H Lab Interpretation (test code = Abnormal 87289-4) [facility] [id number] 16:08:53 Test Item Value Reference Interpretation Comments Range TROPONIN I (test 0.061 ng/mL See_Comment H [Automated code = 9685729059) message] The system which generated this result [...] biotin. Lab Interpretation Abnormal (test code = 86111-9) [facility] (NA, K, CL, CO2, GLUCOSE, BUN, CREATININE, CA)2022-06-04 15:57:07 Test Item Value Reference Range Interpretation Comments NA (test code = 139 mmol/L 135-145 6422616292) K (test code = 3.6 mmol/L 3.5-5 3499833179) CL (test code = 100 mmol/L 98-108 1908408328) CO2 TOTAL (test code = 30 mmol/L 23-31 2729463674) AGAP (test code = 2-16 5732103843) BUN (test code = 27 mg/dL 7-23 H 2473561745) GLUCOSE (test code = 159 mg/dL 70-110 H 4782042014) CREATININE (test code = 0.94 mg/dL 0.6-1.25 8884091759) CALCIUM (test code = 9.3 mg/dL 8.6-10.6 0577217682) eGFR (test code = mL/min/1.73m2 1371427615) ALYSSA (test code = ALYSSA) Association of [...] tests). Lab Interpretation Abnormal (test code = 81901-8) [facility]KATEKvng [id number] 15:25:43 Test Item Value Reference Interpretation Comments Range TROPONIN I (test 0.085 ng/mL See_Comment H [Automated code = 8168805631) message] The system which generated this result [...] biotin. Lab Interpretation Abnormal (test code = 09413-7) [facility] GLUCOSE (AUTOMATED)2022-06-04 13:13:51 Test Item Value Reference Range Interpretation Comments POCT GLU (test code = 3486087214) 196 mg/dL 70-110 H Lab Interpretation (test code = Abnormal 86148-1) [facility] [id number] 03:16:42 Test Item Value Reference Interpretation Comments Range TROPONIN I (test 0.077 ng/mL See_Comment H [Automated code = 4686753852) message] The system which generated this result [...] biotin. Lab Interpretation Abnormal (test code = 80975-9) [facility] GLUCOSE (AUTOMATED)2022-06-03 23:26:30 Test Item Value Reference Range Interpretation Comments POCT GLU (test code = 9070660807) 185 mg/dL 70-110 H Lab Interpretation (test code = Abnormal 66080-0) [facility] and Screen - ONCE [id number] 16:49:21 Test Item Value Reference Range Interpretation Comments ABO & RH (test code A Positive Performe d at [facility] = 20) Laboratory Serv [facility] Blood [facility] [address] [place] [id number] Free: [phone] A No. [id number] IAT (test code = Negative Performed a t [facility] 1185) Laboratory Serv [facility] [address] [place] [id number] Free: [phone] A No. [id number] [facility] HospitalProthrombin Time / [id number] 16:10:07 Test Item Value Reference Range Interpretation [...] tions. Lab Interpretation (test Normal code = 93341-2) [facility] [id number] 15:31:19 Test Item Value Reference Interpretation Comments Range TROPONIN I (test 0.093 ng/mL See_Comment H [Automated code = 5220501450) message] The system which generated this result [...] biotin. Lab Interpretation Abnormal (test code = 35384-8) [facility] [id number] 15:28:02 Test Item Value Reference Range Interpretation Comments NT-proBNP (test code 9060 pg/mL See_Comment H [Autom ated = 8807338515) message] The system which generated this result transmitted reference range : <=450. The reference range was not used to interpret this result as normal/abnormal . ALYSSA (test code = ALYSSA) Biotin has been reported to cause a negative bias, interpret results relative to patient's use of biotin. Lab Interpretation Abnormal (test code = 93548-4) [facility]20:38 Test Item Value Reference Range Interpretation Comments MAGNESIUM (test code = 9236404897) 1.8 mg/dL 1.7-2.4 Lab Interpretation (test code = Normal 22878-8) [facility]OLIC PAN[facility] ([id number])2022-06-03 15:20:18 Test Item Value Reference Range Interpretation Comments NA (test code = 137 mmol/L 135-145 9365915458) K (test code = 3.7 mmol/L 3.5-5 2374130744) CL (test code = 99 mmol/L 98-108 3863137122) CO2 TOTAL (test code = 24 mmol/L 23-31 1832330510) AGAP (test code = 2-16 9821931717) BUN (test code = 31 mg/dL 7-23 H 9101746068) GLUCOSE (test code = 224 mg/dL 70-110 H 0350118982) CREATININE (test code = 1.30 mg/dL 0.6-1.25 H 0403841774) TOTAL BILI (test code = 1.4 mg/dL 0.1-1.1 H 6678946350) CALCIUM (test code = 9.2 mg/dL 8.6-10.6 0266951787) T PROTEIN (test code = 6.3 g/dL 6.3-8.2 5534136944) ALBUMIN (test code = 3.8 g/dL 3.5-5 8989086847) ALK PHOS (test code = 98 U/L 34-122 0864060948) ALTv (test code = 18 U/L 5-50 1742-6) AST(SGOT) (test code = 30 U/L 13-40 0776829414) eGFR (test code = mL/min/1.73m2 4309165122) ALYSSA (test code = ALYSSA) Association of [...] tests). Lab Interpretation Abnormal (test code = 45449-6) [facility] 15:20:18 Test Item Value Reference Range Interpretation Comments LIPASE (test code = 9450427160) 343 U/L 0-220 H Lab Interpretation (test code = Abnormal 46666-8) [facility] WITH [id number] 15:10:01 Test Item Value Reference Range Interpretation Comments WBC (test code = See_Comment [Automated 0098-2) message] The sy stem which generated this result transmitted reference range : 4.20 - 10.70 10*3/?L. The reference range was not used to interpret this result as normal/abnormal . RBC (test code = See_Comment L [Automated 302-8) message] The sy stem which generated this [...] RDW-SD (test code = 45.3 fL 38.5-51.6 39185-3) RDW-CV (test code = 13.5 % 12.1-15.4 788-0) PLT (test code = See_Comment [Automated 777-3) message] The sy stem which generated this result transmitted reference range : 150 - 328 10*3/ ?L. The reference r corey was not used to interpret this result as normal/abnormal . MPV (test code = 10.0 fL 9.8-13 45863-3) NRBC/100 WBC (test See_Comment [Automat ed code = 4460849869) message] The system which generated this result transmitted reference range : 0.0 - 10.0 /100 WBCs. The refer ence range was not u sed to interpret th is result as normal/abnormal . NRBC x10^3 (test code See_Comment [Auto mated = 9933046538) message] The s ystem which generated this result transmitted reference range : 10*3/?L. The reference range was not used to interpret this result as normal/abnormal . GRAN MAT (NEUT) % 77.8 % (test code = 770-8) IMM GRAN % (test code 0.50 % = 8254754715) LYMPH % (test code = 11.7 % 736-9) MONO % (test code = 9.4 % 5905-5) EOS % (test code = 0.2 % 713-8) BASO % (test code = 0.4 % 706-2) GRAN MAT x10^3(ANC) 6.30 10*3/uL 1.99-6.95 (test code = 8816606265) IMM GRAN x10^3 (test 0.04 10*3/uL 0-0.06 code = 5124435728) LYMPH x10^3 (test code 0.95 10*3/uL 1.09-3.23 L = 731-0) MONO x10^3 (test code 0.76 10*3/uL 0.36-1.02 = 742-7) EOS x10^3 (test code = 0.06-0.53 L 711-2) BASO x10^3 (test code 0.03 10*3/uL 0.01-0.09 = 704-7) Lab Interpretation Abnormal (test code = 50151-5) [facility] METABOLIC PANEL (NA, K, CL, CO2, GLUCOSE, BUN, CREATININE, CA)2022-05-31 11:07:06 Test Item Value Reference Range Interpretation Comments NA (test code = 133 mmol/L 135-145 L 7811416615) K (test code = 3.3 mmol/L 3.5-5 L 2181601268) CL (test code = 91 mmol/L 98-108 L 0945162705) CO2 TOTAL (test code = 33 mmol/L 23-31 H 5694306154) AGAP (test code = 2-16 9430613000) BUN (test code = 57 mg/dL 7-23 H 9094750068) GLUCOSE (test code = 285 mg/dL 70-110 H 1480367747) CREATININE (test code = 1.56 mg/dL 0.6-1.25 H 2973808621) CALCIUM (test code = 9.2 mg/dL 8.6-10.6 6394406140) eGFR (test code = mL/min/1.73m2 3259130432) ALYSSA (test code = ALYSSA) Association of [...] tests). Lab Interpretation Abnormal (test code = 10444-1) [facility] (NA, K, CL, CO2, GLUCOSE, BUN, CREATININE, CA)2022-05-30 09:08:14 Test Item Value Reference Range Interpretation Comments NA (test code = 132 mmol/L 135-145 L 9995041683) K (test code = 3.5 mmol/L 3.5-5 Slight 6723514739) hemolysis CL (test code = 90 mmol/L 98-108 L 4759372214) CO2 TOTAL (test code 33 mmol/L 23-31 H = 0298484662) AGAP (test code = 2-16 3101694997) BUN (test code = 37 mg/dL 7-23 H Slight 1119214316) hemolysis GLUCOSE (test code = 167 mg/dL 70-110 H 9401634624) CREATININE (test code 1.22 mg/dL 0.6-1.25 = 2370600394) CALCIUM (test code = 9.4 mg/dL 8.6-10.6 3135557202) eGFR (test code = mL/min/1.73m2 4697244037) ALYSSA (test code = ALYSSA) Association of [...] tests). Lab Interpretation Abnormal (test code = 95438-7) [facility] [id number] 10:06:48 Test Item Value Reference Range Interpretation Comments NT-proBNP (test code 2940 pg/mL See_Comment H [Autom ated = 9017153953) message] The system which generated this result transmitted reference range : <=450. The reference range was not used to interpret this result as normal/abnormal . ALYSSA (test code = ALYSSA) Biotin has been reported to cause a negative bias, interpret results relative to patient's use of biotin. Lab Interpretation Abnormal (test code = 54191-6) [facility] (NA, K, CL, CO2, GLUCOSE, BUN, CREATININE, CA)2022-05-29 09:58:43 Test Item Value Reference Range Interpretation Comments NA (test code = 133 mmol/L 135-145 L 5449190732) K (test code = 3.5 mmol/L 3.5-5 1681727358) CL (test code = 93 mmol/L 98-108 L 8257970794) CO2 TOTAL (test code = 30 mmol/L 23-31 4978321118) AGAP (test code = 2-16 4185873057) BUN (test code = 31 mg/dL 7-23 H 6631985285) GLUCOSE (test code = 167 mg/dL 70-110 H 6207735084) CREATININE (test code = 1.24 mg/dL 0.6-1.25 8542505642) CALCIUM (test code = 9.4 mg/dL 8.6-10.6 1334455711) eGFR (test code = mL/min/1.73m2 9260319848) ALYSSA (test code = ALYSSA) Association of [...] tests). Lab Interpretation Abnormal (test code = 00100-1) [facility] WITH [id number] 08:08:05 Test Item Value Reference Range Interpretation [...] RDW-SD (test code = 47.3 fL 38.5-51.6 40686-9) RDW-CV (test code = 14.0 % 12.1-15.4 788-0) PLT (test code = See_Comment [Automated 777-3) message] The sy stem which generated this result transmitted reference range : 150 - 328 10*3/ ?L. The reference r corey was not used to interpret this result as normal/abnormal . MPV (test code = 9.6 fL 9.8-13 L 77724-5) NRBC/100 WBC (test See_Comment [Automat ed code = 3183723771) message] The system which generated this result transmitted reference range : 0.0 - 10.0 /100 WBCs. The refer ence range was not u sed to interpret th is result as normal/abnormal . NRBC x10^3 (test code See_Comment [Auto mated = 7087140049) message] The s ystem which generated this result transmitted reference range : 10*3/?L. The reference range was not used to interpret this result as normal/abnormal . GRAN MAT (NEUT) % 65.6 % (test code = 770-8) IMM GRAN % (test code 0.40 % = 7972929342) LYMPH % (test code = 20.0 % 736-9) MONO % (test code = 10.4 % 5905-5) EOS % (test code = 3.1 % 713-8) BASO % (test code = 0.5 % 706-2) GRAN MAT x10^3(ANC) 3.58 10*3/uL 1.99-6.95 (test code = 9746870109) IMM GRAN x10^3 (test 0-0.06 code = 0307410948) LYMPH x10^3 (test code 1.09 10*3/uL 1.09-3.23 = 731-0) MONO x10^3 (test code 0.57 10*3/uL 0.36-1.02 = 742-7) EOS x10^3 (test code = 0.17 10*3/uL 0.06-0.53 711-2) BASO x10^3 (test code 0.03 10*3/uL 0.01-0.09 = 704-7) Lab Interpretation Abnormal (test code = 46210-5) [facility] [id number] 10:55:38 Test Item Value Reference Range Interpretation Comments NT-proBNP (test code 3040 pg/mL See_Comment H [Autom ated = 1676345428) message] The system which generated this result transmitted reference range : <=450. The reference range was not used to interpret this result as normal/abnormal . ALYSSA (test code = ALYSSA) Biotin has been reported to cause a negative bias, interpret results relative to patient's use of biotin. Lab Interpretation Abnormal (test code = 73197-9) [facility] (NA, K, CL, CO2, GLUCOSE, BUN, CREATININE, CA)2022-05-27 10:49:39 Test Item Value Reference Range Interpretation Comments NA (test code = 134 mmol/L 135-145 L 7143098453) K (test code = 4.1 mmol/L 3.5-5 9018505266) CL (test code = 96 mmol/L 98-108 L 7594302390) CO2 TOTAL (test code = 31 mmol/L 23-31 0178696263) AGAP (test code = 2-16 1990993777) BUN (test code = 28 mg/dL 7-23 H 8063802456) GLUCOSE (test code = 216 mg/dL 70-110 H 6545501598) CREATININE (test code = 1.07 mg/dL 0.6-1.25 2798408758) CALCIUM (test code = 8.8 mg/dL 8.6-10.6 8151844645) eGFR (test code = mL/min/1.73m2 8747502920) ALYSSA (test code = ALYSSA) Association of [...] tests). Lab Interpretation Abnormal (test code = 91077-1) [facility])2022-05-27 00:13:45 Test Item Value Reference Range Interpretation Comments Height (test code = in 0881558480) Weight (test code = lbs 7019209726) Systolic BP (test code = mmHg 4451777666) Diastolic BP (test code mmHg = 7678119802) Heart Rate (test code = bpm 6928846861) LVOT stroke volume (test 31.80 cm3 code = 9567391446) EF(Teich) (test code = 18.40 % 4650689194) LVIDD (test code = 6.30 cm 2022308485) LVIDS (test code = 5.80 cm 9847707997) IVS (test code = 0.75 cm 7891297791) LVPWD (test code = 0.94 cm 3809346483) LVOT diameter (test code 1.95 cm = 5995655816) FS (test code = 9 % 3045375267) MV Peak E Nestor (test code 121.4 cm/s = 8949212739) E wave decelartion time 0.09 s (test code = 1686463364) MV E/e' septal (test 5.0 cm/s code = 9756436497) LA Volume Index (BP) 42.0 mL/m2 (test code = 9442728935) LA volume (BP) (test 74.6 mL code = 5873922507) LVOT peak nestor (test code 79.9 cm/s = 2836443492) LVOT mn grad (test code mmHg = 8791590438) BSA (test code = 1.78 m2 6509171958) LA size (test code = 2.6 cm 8132745959) LAV(MOD-sp2) (test code 82.10 mL = 4470979651) LAV(MOD-sp4) (test code 60.20 mL = 8520849320) Tapse (test code = 2.08 cm 0356422259) AV LVOT peak gradient mmHg (test code = 3341848696) LVOT peak VTI (test code 10.6 cm = 7046277493) LV V1 mean (test code = 48.50 cm/s 6496035627) MV Prop V (test code = 44.70 cm/s 2124896679) Ao root annulus (test 3.5 cm code = 5287649414) Ao root diam (test code 3.50 cm = 6130147175) Aortic root (test code = 3.5 cm 9328887155) PW (test code = 0.94 cm 0.6-1.2 2135271112) EF - 2D (test code = 18.40 % 67430189) Interventricular Septum 0.75 cm Diastolic Thickness by 2D (test code = 8509229) MV Peak A Nestor (test code 26.3 cm/s = 5891669919) E/A ratio (test code = ratio 8432045966) Aortic valve mean 113.4 cm/s velocity (test code = 4086048062) Ao peak nestor (test code = 150.5 cm/s 8748307042) Ao VTI (test code = 21.6 cm 4764189424) AV area by cont VTI 1.5 cm2 (test code = 5633868738) AV area peak nestor (test 1.6 cm2 code = 6400103425) Ao max PG (test code = 9.10 mm[Hg] 7093227524) AV peak gradient (test mmHg code = 6633361576) AV valve area (test code 1.48 cm2 = 0937004583) AV mean gradient (test mmHg code = 3662322794) Radiology Study observation (narrative) (test code = 70107-8) ALYSSA (test code = ALYSSA) Formatting of [...] mL of Lumason ultrasound enhancing agent used. [facility]D-XZGSM1117-53-01 20:13:11 Test Item Value Reference Interpretation Comments Range D-DIMER (test code = See_Comment H [Autom ated 7841645834) message] The system which generated this result [...] diagnosis. Lab Interpretation Abnormal (test code = 94557-6) [facility] HospitalTROPONIN [id number] 14:26:05 Test Item Value Reference Interpretation Comments Range TROPONIN I (test 0.069 ng/mL See_Comment H [Automated code = 9484306149) message] The system which generated this result [...] biotin. Lab Interpretation Abnormal (test code = 95167-6) [facility] METABOLIC PANEL (NA, K, CL, CO2, GLUCOSE, BUN, CREATININE, CA)2022-05-25 14:14:22 Test Item Value Reference Range Interpretation Comments NA (test code = 136 mmol/L 135-145 3197749887) K (test code = 3.8 mmol/L 3.5-5 2558635107) CL (test code = 102 mmol/L 98-108 4508663923) CO2 TOTAL (test code 26 mmol/L 23-31 = 7699869357) AGAP (test code = 2-16 8837341937) BUN (test code = 19 mg/dL 7-23 6118192242) GLUCOSE (test code = 94 mg/dL 70-110 7336016965) CREATININE (test code 0.97 mg/dL 0.6-1.25 = 4022903883) CALCIUM (test code = 8.8 mg/dL 8.6-10.6 1328431066) eGFR (test code = mL/min/1.73m2 1550659510) ALYSSA (test code = ALYSSA) Association of [...] or urine or abnormalities in imaging tests). [facility] [id number] 18:14:14 Test Item Value Reference Range Interpretation Comments NT-proBNP (test code 7300 pg/mL See_Comment H [Autom ated = 7391566286) message] The system which generated this result transmitted reference range : <=450. The reference range was not used to interpret this result as normal/abnormal . ALYSSA (test code = ALYSSA) Biotin has been reported to cause a negative bias, interpret results relative to patient's use of biotin. Lab Interpretation Abnormal (test code = 23638-5) [facility] (AUT[facility]ATED)2022-05-24 16:04:15 Test Item Value Reference Range Interpretation Comments POCT GLU (test code = 5630324025) 107 mg/dL 70-110 Lab Interpretation (test code = Normal 31512-5) [facility]OL[facility] ([id number])2022-05-24 05:16:06 Test Item Value Reference Range Interpretation Comments NA (test code = 134 mmol/L 135-145 L 6317047774) K (test code = 3.8 mmol/L 3.5-5 7505342055) CL (test code = 100 mmol/L 98-108 7233543240) CO2 TOTAL (test code = 23 mmol/L 23-31 1365390841) AGAP (test code = 2-16 5541968615) BUN (test code = 18 mg/dL 7-23 6826722244) GLUCOSE (test code = 179 mg/dL 70-110 H 8930160147) CREATININE (test code = 1.07 mg/dL 0.6-1.25 9870573112) TOTAL BILI (test code = 1.4 mg/dL 0.1-1.1 H 2761431888) CALCIUM (test code = 9.1 mg/dL 8.6-10.6 9363372556) T PROTEIN (test code = 6.0 g/dL 6.3-8.2 L 0266698598) ALBUMIN (test code = 3.6 g/dL 3.5-5 0501232632) ALK PHOS (test code = 98 U/L 34-122 4789269534) ALTv (test code = 14 U/L 5-50 1742-6) AST(SGOT) (test code = 23 U/L 13-40 9583673292) eGFR (test code = mL/min/1.73m2 6634585421) ALYSSA (test code = ALYSSA) Association of [...] tests). Lab Interpretation Abnormal (test code = 19403-8) [facility] HospitalWENDY [id number] 04:57:41 Test Item Value Reference Interpretation Comments Range TROPONIN I (test 0.086 ng/mL See_Comment H [Automated code = 2486383807) message] The system which generated this result [...] biotin. Lab Interpretation Abnormal (test code = 67504-6) [facility] WITH [id number] 04:40:23 Test Item Value Reference Range Interpretation Comments WBC (test code = See_Comment [Automated 2217-2) message] The sy stem which generated this result transmitted reference range : 4.20 - 10.70 10*3/?L. The reference range was not used to interpret this result as normal/abnormal . RBC (test code = See_Comment L [Automated 404-8) message] The sy stem which generated this [...] RDW-SD (test code = 48.0 fL 38.5-51.6 56160-2) RDW-CV (test code = 14.1 % 12.1-15.4 788-0) PLT (test code = See_Comment [Automated 777-3) message] The sy stem which generated this result transmitted reference range : 150 - 328 10*3/ ?L. The reference r corey was not used to interpret this result as normal/abnormal . MPV (test code = 9.8 fL 9.8-13 09971-1) NRBC/100 WBC (test See_Comment [Automat ed code = 1892760736) message] The system which generated this result transmitted reference range : 0.0 - 10.0 /100 WBCs. The refer ence range was not u sed to interpret th is result as normal/abnormal . NRBC x10^3 (test code See_Comment [Auto mated = 7990935746) message] The s ystem which generated this result transmitted reference range : 10*3/?L. The reference range was not used to interpret this result as normal/abnormal . GRAN MAT (NEUT) % 77.1 % (test code = 770-8) IMM GRAN % (test code 0.30 % = 9682630467) LYMPH % (test code = 11.4 % 736-9) MONO % (test code = 9.5 % 5905-5) EOS % (test code = 1.4 % 713-8) BASO % (test code = 0.3 % 706-2) GRAN MAT x10^3(ANC) 5.06 10*3/uL 1.99-6.95 (test code = 9550066237) IMM GRAN x10^3 (test 0-0.06 code = 5172813591) LYMPH x10^3 (test code 0.75 10*3/uL 1.09-3.23 L = 731-0) MONO x10^3 (test code 0.62 10*3/uL 0.36-1.02 = 742-7) EOS x10^3 (test code = 0.09 10*3/uL 0.06-0.53 711-2) BASO x10^3 (test code 0.01-0.09 = 704-7) Lab Interpretation Abnormal (test code = 94115-8) [facility] HospitalCHEM HOCMQ5815-71-55 09:38:00 Test Item Value Reference Range Interpretation Comments Glucose Lvl (test code = Glucose Lvl) 198 70-99 [place] 548452-04-25 09:38:00 Test Item Value Reference Range Interpretation Comments BUN (test code = BUN) 37 7-22 [place] 548452-04-25 09:38:00 Test Item Value Reference Range Interpretation Comments Creatinine Lvl (test code = Creatinine 1.15 0.50-1.40 Lvl) [place] 548452-04-25 09:38:00 Test Item Value Reference Range Interpretation Comments Sodium Lvl (test code = Sodium Lvl) 133 135-145 [place] 548452-04-25 09:38:00 Test Item Value Reference Range Interpretation Comments Potassium Lvl (test code = Potassium 3.8 3.5-5.1 Lvl) [place] 548452-04-25 09:38:00 Test Item Value Reference Range Interpretation Comments Chloride Lvl (test code = Chloride Lvl) 98 95-109 [place] 548452-04-25 09:38:00 Test Item Value Reference Range Interpretation Comments CO2 (test code = CO2) 25 24-32 [place] 548452-04-25 09:38:00 Test Item Value Reference Range Interpretation Comments AGAP (test code = AGAP) 13.8 10.0-20.0 [place] 548452-04-25 09:38:00 Test Item Value Reference Range Interpretation Comments Calcium Lvl (test code = Calcium Lvl) 9.9 8.5-10.5 [place] 548452-04-25 09:38:00 Test Item Value Reference Range Interpretation Comments eGFR (test code = eGFR) 59 [place] 548452-04-25 09:38:00 Test Item Value Reference Range Interpretation Comments Phosphorus (test code = Phosphorus) 4.3 2.5-4.5 [place] 548452-04-25 09:38:00 Test Item Value Reference Range Interpretation Comments Magnesium Lvl (test code = Magnesium 2.4 1.8-2.4 Lvl) [place] 247532-04-25 09:38:00 Test Item Value Reference Range Interpretation Comments WBC (test code = WBC) 5.1 3.7-10.4 [place] 247532-04-25 09:38:00 Test Item Value Reference Range Interpretation Comments RBC (test code = RBC) 4.61 4.70-6.10 [facility]RxemudbXCPSYCGELU0143-54-44 09:38:00 Test Item Value Reference Range Interpretation Comments Hgb (test code = Hgb) 14.9 14.0-18.0 [facility] DistrictKnpefxuVDAGENKGHC6376-55-99 09:38:00 Test Item Value Reference Range Interpretation Comments Hct (test code = Hct) 43.0 42.0-54.0 [facility] DistrictVswzmcmAQMWPZITYI1054-00-94 09:38:00 Test Item Value Reference Range Interpretation Comments MCV (test code = MCV) 93.3 80.0-94.0 [facility] DistrictKvtpuabGPMBUHJERE8033-90-89 09:38:00 Test Item Value Reference Range Interpretation Comments MCH (test code = MCH) 32.3 pg 27.0-31.0 [facility] DistrictBrabaxbEHBYTMMHVU2883-28-57 09:38:00 Test Item Value Reference Range Interpretation Comments MCHC (test code = MCHC) 34.6 32.0-36.0 [facility] DistrictVfdrzkuZHXHKMISXR6046-06-49 09:38:00 Test Item Value Reference Range Interpretation Comments RDW (test code = RDW) 13.8 11.5-14.5 [facility] DistrictFuhwimbGTLYBZNACT9438-41-63 09:38:00 Test Item Value Reference Range Interpretation Comments Platelet (test code = Platelet) 210 133-450 [facility] DistrictAioghggCGBUBHMVIS3886-69-91 09:38:00 Test Item Value Reference Range Interpretation Comments MPV (test code = MPV) 8.2 7.4-10.4 [facility] DistrictUvfshtjHMQLRGRWHF9553-97-43 09:38:00 Test Item Value Reference Range Interpretation Comments Segs (test code = Segs) 50.3 45.0-75.0 [place] [address]41-04-25 09:38:00 Test Item Value Reference Range Interpretation Comments Lymphocytes (test code = Lymphocytes) 32.2 20.0-40.0 [place] 247532-04-25 09:38:00 Test Item Value Reference Range Interpretation Comments Monocytes (test code = Monocytes) 13.4 2.0-12.0 [place] 247532-04-25 09:38:00 Test Item Value Reference Range Interpretation Comments Eosinophils (test code = 3.0 See_Comment [A utomated message] The Eosinophils) system which ge nerated this result tra nsmitted reference range : <=4.0. The reference r corey was not used to int erpret this result as normal/abnormal . [facility] DistrictYknxftlXKOTAJDDQP8616-71-56 09:38:00 Test Item Value Reference Range Interpretation Comments Basophils (test code = 1.1 See_Comment [Aut omated message] The Basophils) system which ge nerated this result tra nsmitted reference range : <=1.0. The reference r corey was not used to int erpret this result as normal/abnormal . [facility] DistrictBigzhsqYNFZLOIGCR5595-73-25 09:38:00 Test Item Value Reference Range Interpretation Comments Neutrophils # (test code = Neutrophils 2.5 1.5-8.1 #) [facility] DistrictDblymmlITLKEOMGBP2592-15-45 09:38:00 Test Item Value Reference Range Interpretation Comments Lymphocytes # (test code = Lymphocytes 1.6 1.0-5.5 #) [place] 247532-04-25 09:38:00 Test Item Value Reference Range Interpretation Comments Monocytes # (test code 0.7 See_Comment [Aut omated message] The = Monocytes #) system which generated this result tra nsmitted reference range : <=0.8. The reference r corey was not used to int erpret this result as normal/abnormal . [facility] DistrictVorsrktHUAHJKOKGC1640-09-45 09:38:00 Test Item Value Reference Range Interpretation Comments Eosinophils # (test code 0.2 See_Comment [A utomated message] The = Eosinophils #) system [facility] generated this result tra nsmitted reference range : <=0.5. The reference r corey was not used to int erpret this result as normal/abnormal . [facility] DistrictWmfjzlkDGZKPXQDCZ5711-12-32 09:38:00 Test Item Value Reference Range Interpretation Comments Basophils # (test code 0.1 See_Comment [Aut omated message] The = Basophils #) system which generated this result tra nsmitted reference range : <=0.2. The reference r corey was not used to int erpret this result as normal/abnormal . [facility]2022-04-25 09:38:00 Test Item Value Reference Range Interpretation Comments Ca Ion WB (test code = Ca Ion WB) 1.17 1.05-1.25 [facility]PARATHYROID LLGNVZS1360-06-29 09:38:00 Test Item Value Reference Range Interpretation Comments Ca Ion at pH 7.4 WB (test code = Ca Ion 1.12 1.05-1.25 at pH 7.4 WB) [facility]2022-04-25 09:38:00 Test Item Value Reference Range Interpretation Comments Chloride Lvl (test code = Chloride Lvl) 98 95-109 [facility]2022-04-25 09:38:00 Test Item Value Reference Range Interpretation Comments CO2 (test code = CO2) 25 24-32 [facility]2022-04-25 09:38:00 Test Item Value Reference Range Interpretation Comments AGAP (test code = AGAP) 13.8 10.0-20.0 [facility]2022-04-25 09:38:00 Test Item Value Reference Range Interpretation Comments Calcium Lvl (test code = Calcium Lvl) 9.9 8.5-10.5 [facility]2022-04-25 09:38:00 Test Item Value Reference Range Interpretation Comments eGFR (test code = eGFR) 59 [facility]2022-04-25 09:38:00 Test Item Value Reference Range Interpretation Comments Phosphorus (test code = Phosphorus) 4.3 2.5-4.5 [facility]2022-04-25 09:38:00 Test Item Value Reference Range Interpretation Comments Magnesium Lvl (test code = Magnesium 2.4 1.8-2.4 Lvl) [facility]kg[facility]caEPTVDNIHWT3677-87-53 09:38:00 Test Item Value Reference Range Interpretation Comments WBC (test code = WBC) 5.1 3.7-10.4 [place] [address]-04-25 09:38:00 Test Item Value Reference Range Interpretation Comments RBC (test code = RBC) 4.61 4.70-6.10 [place] [address]-04-25 09:38:00 Test Item Value Reference Range Interpretation Comments Hgb (test code = Hgb) 14.9 14.0-18.0 [place] 247532-04-25 09:38:00 Test Item Value Reference Range Interpretation Comments Hct (test code = Hct) 43.0 42.0-54.0 [place] [address]-04-25 09:38:00 Test Item Value Reference Range Interpretation Comments MCV (test code = MCV) 93.3 80.0-94.0 [place] [address]-04-25 09:38:00 Test Item Value Reference Range Interpretation Comments MCH (test code = MCH) 32.3 pg 27.0-31.0 [place] 247532-04-25 09:38:00 Test Item Value Reference Range Interpretation Comments MCHC (test code = MCHC) 34.6 32.0-36.0 [place] [address]-04-25 09:38:00 Test Item Value Reference Range Interpretation Comments RDW (test code = RDW) 13.8 11.5-14.5 [place] [address]-04-25 09:38:00 Test Item Value Reference Range Interpretation Comments Platelet (test code = Platelet) 210 133-450 [place] 247532-04-25 09:38:00 Test Item Value Reference Range Interpretation Comments MPV (test code = MPV) 8.2 7.4-10.4 [place] [address]-04-25 09:38:00 Test Item Value Reference Range Interpretation Comments Segs (test code = Segs) 50.3 45.0-75.0 [place] [address]-04-25 09:38:00 Test Item Value Reference Range Interpretation Comments Lymphocytes (test code = Lymphocytes) 32.2 20.0-40.0 [place] [address]-04-25 09:38:00 Test Item Value Reference Range Interpretation Comments Monocytes (test code = Monocytes) 13.4 2.0-12.0 [place] [address]-04-25 09:38:00 Test Item Value Reference Range Interpretation Comments Eosinophils (test code = 3.0 See_Comment [A utomated message] The Eosinophils) system which ge nerated this result tra nsmitted reference range : <=4.0. The reference r corey was not used to int erpret this result as normal/abnormal . [place] [address]-04-25 09:38:00 Test Item Value Reference Range Interpretation Comments Basophils (test code = 1.1 See_Comment [Aut omated message] The Basophils) system which ge nerated this result tra nsmitted reference range : <=1.0. The reference r corey was not used to int erpret this result as normal/abnormal . [facility] DistrictYbzlmycBSIRKCHGBK6488-10-90 09:38:00 Test Item Value Reference Range Interpretation Comments Neutrophils # (test code = Neutrophils 2.5 1.5-8.1 #) [facility] DistrictSywosquJXZDTNIIRX9330-87-57 09:38:00 Test Item Value Reference Range Interpretation Comments Lymphocytes # (test code = Lymphocytes 1.6 1.0-5.5 #) [facility] DistrictAkbwzyfPZNAQKJEDN9931-31-51 09:38:00 Test Item Value Reference Range Interpretation Comments Monocytes # (test code 0.7 See_Comment [Aut omated message] The = Monocytes #) system which generated this result tra nsmitted reference range : <=0.8. The reference r corey was not used to int erpret this result as normal/abnormal . [facility] DistrictEccwmcpFQIGTKPVZM9972-32-68 09:38:00 Test Item Value Reference Range Interpretation Comments Eosinophils # (test code 0.2 See_Comment [A utomated message] The = Eosinophils #) system whic h generated this result tra nsmitted reference range : <=0.5. The reference r corey was not used to int erpret this result as normal/abnormal . [facility] DistrictWpndqotFBVNOLSUZA5255-23-98 09:38:00 Test Item Value Reference Range Interpretation Comments Basophils # (test code 0.1 See_Comment [Aut omated message] The = Basophils #) system which generated this result tra nsmitted reference range : <=0.2. The reference r corey was not used to int erpret this result as normal/abnormal . [facility]2022-04-25 09:38:00 Test Item Value Reference Range Interpretation Comments Ca Ion WB (test code = Ca Ion WB) 1.17 1.05-1.25 [place] 026892-04-25 09:38:00 Test Item Value Reference Range Interpretation Comments Ca Ion at pH 7.4 WB (test code = Ca Ion 1.12 1.05-1.25 at pH 7.4 WB) [facility]2022-04-25 09:38:00 Test Item Value Reference Range Interpretation Comments Glucose Lvl (test code = Glucose Lvl) 198 70-99 [facility]2022-04-25 09:38:00 Test Item Value Reference Range Interpretation Comments BUN (test code = BUN) 37 7-22 [facility]2022-04-25 09:38:00 Test Item Value Reference Range Interpretation Comments Creatinine Lvl (test code = Creatinine 1.15 0.50-1.40 Lvl) [facility]2022-04-25 09:38:00 Test Item Value Reference Range Interpretation Comments Sodium Lvl (test code = Sodium Lvl) 133 135-145 [facility]2022-04-25 09:38:00 Test Item Value Reference Range Interpretation Comments Potassium Lvl (test code = Potassium 3.8 3.5-5.1 Lvl) [facility]2022-04-24 10:17:00 Test Item Value Reference Range Interpretation Comments Phosphorus (test code = Phosphorus) 4.0 2.5-4.5 [facility]2022-04-24 10:17:00 Test Item Value Reference Range Interpretation Comments Magnesium Lvl (test code = Magnesium 2.2 1.8-2.4 Lvl) [facility]2022-04-24 10:17:00 Test Item Value Reference Range Interpretation Comments Glucose Lvl (test code = Glucose Lvl) 134 70-99 [facility]2022-04-24 10:17:00 Test Item Value Reference Range Interpretation Comments BUN (test code = BUN) 35 7-22 [facility]2022-04-24 10:17:00 Test Item Value Reference Range Interpretation Comments Creatinine Lvl (test code = Creatinine 1.06 0.50-1.40 Lvl) [facility]2022-04-24 10:17:00 Test Item Value Reference Range Interpretation Comments Sodium Lvl (test code = Sodium Lvl) 134 135-145 [facility]2022-04-24 10:17:00 Test Item Value Reference Range Interpretation Comments Potassium Lvl (test code = Potassium 4.1 3.5-5.1 Lvl) [facility]2022-04-24 10:17:00 Test Item Value Reference Range Interpretation Comments Chloride Lvl (test code = Chloride Lvl) 99 95-109 [facility]2022-04-24 10:17:00 Test Item Value Reference Range Interpretation Comments CO2 (test code = CO2) 26 24-32 [facility]2022-04-24 10:17:00 Test Item Value Reference Range Interpretation Comments Calcium Lvl (test code = Calcium Lvl) 9.3 8.5-10.5 [facility]2022-04-24 10:17:00 Test Item Value Reference Range Interpretation Comments AGAP (test code = AGAP) 13.1 10.0-20.0 [facility]2022-04-24 10:17:00 Test Item Value Reference Range Interpretation Comments eGFR (test code = eGFR) 65 [facility] DistrictMojpxwpPFONCTAQXC0132-48-68 10:17:00 Test Item Value Reference Range Interpretation Comments WBC (test code = WBC) 5.6 3.7-10.4 [facility] DistrictZyhbgipXBWMZCEBDW4996-07-95 10:17:00 Test Item Value Reference Range Interpretation Comments RBC (test code = RBC) 4.33 4.70-6.10 [facility] DistrictHoqzmhmDPWOAKZCJF0810-28-03 10:17:00 Test Item Value Reference Range Interpretation Comments Hgb (test code = Hgb) 13.7 14.0-18.0 [facility] DistrictTtwbqtcEGSQXZSHCI8025-68-35 10:17:00 Test Item Value Reference Range Interpretation Comments Hct (test code = Hct) 40.0 42.0-54.0 [facility] DistrictUkhdskcTVKDYPUCJG6482-28-66 10:17:00 Test Item Value Reference Range Interpretation Comments MCV (test code = MCV) 92.4 80.0-94.0 [facility] DistrictMmomhsuYPWXVOCWMG6524-90-53 10:17:00 Test Item Value Reference Range Interpretation Comments MCH (test code = MCH) 31.5 pg 27.0-31.0 [facility] DistrictIwatqubGZSITROPVQ2225-01-01 10:17:00 Test Item Value Reference Range Interpretation Comments MCHC (test code = MCHC) 34.1 32.0-36.0 [facility] DistrictMnxaftfTNFNLMADPH8712-03-00 10:17:00 Test Item Value Reference Range Interpretation Comments RDW (test code = RDW) 13.6 11.5-14.5 [facility] DistrictDnkifpkRJQQSYQLCR3568-62-82 10:17:00 Test Item Value Reference Range Interpretation Comments Platelet (test code = Platelet) 191 133-450 [facility] DistrictUpxmcnrWCRHGBPKAE4838-90-18 10:17:00 Test Item Value Reference Range Interpretation Comments MPV (test code = MPV) 8.1 7.4-10.4 [place] 247532-04-24 10:17:00 Test Item Value Reference Range Interpretation Comments Segs (test code = Segs) 57.4 45.0-75.0 [place] [address]-04-24 10:17:00 Test Item Value Reference Range Interpretation Comments Lymphocytes (test code = Lymphocytes) 26.6 20.0-40.0 [place] 247532-04-24 10:17:00 Test Item Value Reference Range Interpretation Comments Monocytes (test code = Monocytes) 11.7 2.0-12.0 [place] 247532-04-24 10:17:00 Test Item Value Reference Range Interpretation Comments Eosinophils (test code = 3.5 See_Comment [A utomated message] The Eosinophils) system which nerated this result tra nsmitted reference range : <=4.0. The reference r corey was not used to int erpret this result as normal/abnormal . [facility] DistrictTzficwnYYBFIUQVHJ6292-47-83 10:17:00 Test Item Value Reference Range Interpretation Comments Basophils (test code = 0.8 See_Comment [Aut omated message] The Basophils) system which nerated this result tra nsmitted reference range : <=1.0. The reference r corey was not used to int erpret this result as normal/abnormal . [facility] DistrictBjpazhnGJPTAKYDEM9006-18-30 10:17:00 Test Item Value Reference Range Interpretation Comments Neutrophils # (test code = Neutrophils 3.2 1.5-8.1 #) [facility]2022-04-24 10:17:00 Test Item Value Reference Range Interpretation Comments Phosphorus (test code = Phosphorus) 4.0 2.5-4.5 [place] 548452-04-24 10:17:00 Test Item Value Reference Range Interpretation Comments Magnesium Lvl (test code = Magnesium 2.2 1.8-2.4 Lvl) [place] 548452-04-24 10:17:00 Test Item Value Reference Range Interpretation Comments Glucose Lvl (test code = Glucose Lvl) 134 70-99 [place] 548452-04-24 10:17:00 Test Item Value Reference Range Interpretation Comments BUN (test code = BUN) 35 7-22 [facility]2022-04-24 10:17:00 Test Item Value Reference Range Interpretation Comments Creatinine Lvl (test code = Creatinine 1.06 0.50-1.40 Lvl) [facility]2022-04-24 10:17:00 Test Item Value Reference Range Interpretation Comments Sodium Lvl (test code = Sodium Lvl) 134 135-145 [place] 548452-04-24 10:17:00 Test Item Value Reference Range Interpretation Comments Potassium Lvl (test code = Potassium 4.1 3.5-5.1 Lvl) [facility]2022-04-24 10:17:00 Test Item Value Reference Range Interpretation Comments Chloride Lvl (test code = Chloride Lvl) 99 95-109 [facility]2022-04-24 10:17:00 Test Item Value Reference Range Interpretation Comments CO2 (test code = CO2) 26 24-32 [place] 548452-04-24 10:17:00 Test Item Value Reference Range Interpretation Comments Calcium Lvl (test code = Calcium Lvl) 9.3 8.5-10.5 [facility]2022-04-24 10:17:00 Test Item Value Reference Range Interpretation Comments AGAP (test code = AGAP) 13.1 10.0-20.0 [facility]2022-04-24 10:17:00 Test Item Value Reference Range Interpretation Comments eGFR (test code = eGFR) 65 [place] 247532-04-24 10:17:00 Test Item Value Reference Range Interpretation Comments Lymphocytes # (test code = Lymphocytes 1.5 1.0-5.5 #) [place] 247532-04-24 10:17:00 Test Item Value Reference Range Interpretation Comments WBC (test code = WBC) 5.6 3.7-10.4 [place] 247532-04-24 10:17:00 Test Item Value Reference Range Interpretation Comments RBC (test code = RBC) 4.33 4.70-6.10 [place] 247532-04-24 10:17:00 Test Item Value Reference Range Interpretation Comments Hgb (test code = Hgb) 13.7 14.0-18.0 [address]04-24 10:17:00 Test Item Value Reference Range Interpretation Comments Hct (test code = Hct) 40.0 42.0-54.0 [facility] DistrictOdeptyjEVUUPUURWG8606-01-57 10:17:00 Test Item Value Reference Range Interpretation Comments MCV (test code = MCV) 92.4 80.0-94.0 [place] 247532-04-24 10:17:00 Test Item Value Reference Range Interpretation Comments MCH (test code = MCH) 31.5 pg 27.0-31.0 [facility] DistrictSekorryCOSLDEFYGW9675-19-37 10:17:00 Test Item Value Reference Range Interpretation Comments MCHC (test code = MCHC) 34.1 32.0-36.0 [facility] DistrictHdkdpurMSOUIEDVYS7204-93-34 10:17:00 Test Item Value Reference Range Interpretation Comments RDW (test code = RDW) 13.6 11.5-14.5 [facility] DistrictNeycvgtOEUFEVVFPS9436-95-34 10:17:00 Test Item Value Reference Range Interpretation Comments Platelet (test code = Platelet) 191 133-450 [facility] DistrictRtlszvjMDUDWFDWWC9452-39-48 10:17:00 Test Item Value Reference Range Interpretation Comments MPV (test code = MPV) 8.1 7.4-10.4 [facility] DistrictSnjgmrgPGRGWAHLOJ9909-30-96 10:17:00 Test Item Value Reference Range Interpretation Comments Segs (test code = Segs) 57.4 45.0-75.0 [facility] DistrictSpekhqgWLDPAUZOSM7255-68-48 10:17:00 Test Item Value Reference Range Interpretation Comments Lymphocytes (test code = Lymphocytes) 26.6 20.0-40.0 [facility] DistrictAiniyxxHYBKHHDEMK1156-70-17 10:17:00 Test Item Value Reference Range Interpretation Comments Monocytes (test code = Monocytes) 11.7 2.0-12.0 [place] [address]-04-24 10:17:00 Test Item Value Reference Range Interpretation Comments Eosinophils (test code = 3.5 See_Comment [A utomated message] The Eosinophils) system which ge nerated this result tra nsmitted reference range : <=4.0. The reference r corey was not used to int erpret this result as normal/abnormal . [facility] DistrictOsrnsjwRBKSYOPKLF8393-21-64 10:17:00 Test Item Value Reference Range Interpretation Comments Basophils (test code = 0.8 See_Comment [Aut omated message] The Basophils) system which ge nerated this result tra nsmitted reference range : <=1.0. The reference r corey was not used to int erpret this result as normal/abnormal . [place] 247532-04-24 10:17:00 Test Item Value Reference Range Interpretation Comments Neutrophils # (test code = Neutrophils 3.2 1.5-8.1 #) [facility] DistrictOdfgrftSYTGFMGJBB6732-48-60 10:17:00 Test Item Value Reference Range Interpretation Comments Lymphocytes # (test code = Lymphocytes 1.5 1.0-5.5 #) [place] 247532-04-24 10:17:00 Test Item Value Reference Range Interpretation Comments Monocytes # (test code 0.7 See_Comment [Aut omated message] The = Monocytes #) system which generated this result tra nsmitted reference range : <=0.8. The reference r corey was not used to int erpret this result as normal/abnormal . [facility] DistrictKfscmejQZOCKXGRNQ8232-96-20 10:17:00 Test Item Value Reference Range Interpretation Comments Eosinophils # (test code 0.2 See_Comment [A utomated message] The = Eosinophils #) system whic h generated this result tra nsmitted reference range : <=0.5. The reference r corey was not used to int erpret this result as normal/abnormal . [facility]2022-04-24 10:17:00 Test Item Value Reference Range Interpretation Comments Ca Ion WB (test code = Ca Ion WB) 1.19 1.05-1.25 [place] 247532-04-24 10:17:00 Test Item Value Reference Range Interpretation Comments Monocytes # (test code 0.7 See_Comment [Aut omated message] The = Monocytes #) system which generated this result tra nsmitted reference range : <=0.8. The reference r corey was not used to int erpret this result as normal/abnormal . [facility]2022-04-24 10:17:00 Test Item Value Reference Range Interpretation Comments Ca Ion at pH 7.4 WB (test code = Ca Ion 1.19 1.05-1.25 at pH 7.4 WB) [place] [address]-04-24 10:17:00 Test Item Value Reference Range Interpretation Comments Eosinophils # (test code 0.2 See_Comment [A utomated message] The = Eosinophils #) system whic h generated this result tra nsmitted reference range : <=0.5. The reference r corey was not used to int erpret this result as normal/abnormal . [facility]BLQJ[facility] 10:17:00 Test Item Value Reference Range Interpretation Comments Ca Ion WB (test code = Ca Ion WB) 1.19 1.05-1.25 [facility] CSRWYWZ8541-73-39 10:17:00 Test Item Value Reference Range Interpretation Comments Ca Ion at pH 7.4 WB (test code = Ca Ion 1.19 1.05-1.25 at pH 7.4 WB) [facility]2022-04-22 06:26:00 Test Item Value Reference Range Interpretation Comments Magnesium Lvl (test code = Magnesium 2.4 1.8-2.4 Lvl) [facility]2022-04-22 06:26:00 Test Item Value Reference Range Interpretation Comments Glucose Lvl (test code = Glucose Lvl) 130 70-99 [facility]2022-04-22 06:26:00 Test Item Value Reference Range Interpretation Comments BUN (test code = BUN) 22 7-22 [facility]2022-04-22 06:26:00 Test Item Value Reference Range Interpretation Comments Creatinine Lvl (test code = Creatinine 1.31 0.50-1.40 Lvl) [facility]2022-04-22 06:26:00 Test Item Value Reference Range Interpretation Comments Sodium Lvl (test code = Sodium Lvl) 137 135-145 [place] 548452-04-22 06:26:00 Test Item Value Reference Range Interpretation Comments Potassium Lvl (test code = Potassium 3.8 3.5-5.1 Lvl) [facility]2022-04-22 06:26:00 Test Item Value Reference Range Interpretation Comments Chloride Lvl (test code = Chloride Lvl) 101 95-109 [place] 548452-04-22 06:26:00 Test Item Value Reference Range Interpretation Comments CO2 (test code = CO2) 29 24-32 [place] 548452-04-22 06:26:00 Test Item Value Reference Range Interpretation Comments AGAP (test code = AGAP) 10.8 10.0-20.0 [place] [address]-04-22 06:26:00 Test Item Value Reference Range Interpretation Comments Calcium Lvl (test code = Calcium Lvl) 9.3 8.5-10.5 [place] [address]-04-22 06:26:00 Test Item Value Reference Range Interpretation Comments B/C Ratio (test code = B/C Ratio) 17 1 6-25 [place] [address]-04-22 06:26:00 Test Item Value Reference Range Interpretation Comments Total Protein (test code = Total 6.9 6.4-8.4 Protein) [place] 548452-04-22 06:26:00 Test Item Value Reference Range Interpretation Comments Albumin Lvl (test code = Albumin Lvl) 3.3 3.5-5.0 [place] 548452-04-22 06:26:00 Test Item Value Reference Range Interpretation Comments Globulin (test code = Globulin) 3.6 2.7-4.2 [place] 548452-04-22 06:26:00 Test Item Value Reference Range Interpretation Comments A/G Ratio (test code = A/G Ratio) 0.9 1 0.7-1.6 [place] 548452-04-22 06:26:00 Test Item Value Reference Range Interpretation Comments ALT (test code = ALT) 15 See_Comment [Auto mated message] The system which ge nerated this result transmit diamante reference range : <=65. The reference range was not used to interpr et this result as amaury l/abnormal. [place] 548452-04-22 06:26:00 Test Item Value Reference Range Interpretation Comments AST (test code = AST) 14 See_Comment [Auto mated message] The system which ge nerated this result transmit diamante reference range : <=37. The reference range was not used to interpr et this result as amaury l/abnormal. [place] [address]-04-22 06:26:00 Test Item Value Reference Range Interpretation Comments Alk Phos (test code = Alk Phos) 68 39-136 [facility] XIZOT9450-66-52 06:26:00 Test Item Value Reference Range Interpretation Comments Bili Total (test code = Bili Total) 1.3 0.2-1.3 [place] 548452-04-22 06:26:00 Test Item Value Reference Range Interpretation Comments eGFR (test code = eGFR) 50 [place] 548452-04-22 06:26:00 Test Item Value Reference Range Interpretation Comments Phosphorus (test code = Phosphorus) 3.6 2.5-4.5 [place] 247532-04-22 06:26:00 Test Item Value Reference Range Interpretation Comments Segs (test code = Segs) 64.9 45.0-75.0 [place] 247532-04-22 06:26:00 Test Item Value Reference Range Interpretation Comments Lymphocytes (test code = Lymphocytes) 20.3 20.0-40.0 [place] 247532-04-22 06:26:00 Test Item Value Reference Range Interpretation Comments Monocytes (test code = Monocytes) 10.4 2.0-12.0 [place] 247532-04-22 06:26:00 Test Item Value Reference Range Interpretation Comments Eosinophils (test code = 3.3 See_Comment [A utomated message] The Eosinophils) system which ge nerated this result tra nsmitted reference range : <=4.0. The reference r corey was not used to int erpret this result as normal/abnormal . [place] 247532-04-22 06:26:00 Test Item Value Reference Range Interpretation Comments Basophils (test code = 1.1 See_Comment [Aut omated message] The Basophils) system which ge nerated this result tra nsmitted reference range : <=1.0. The reference r corey was not used to int erpret this result as normal/abnormal . [place] 247532-04-22 06:26:00 Test Item Value Reference Range Interpretation Comments Neutrophils # (test code = Neutrophils 4.2 1.5-8.1 #) [place] 247532-04-22 06:26:00 Test Item Value Reference Range Interpretation Comments Lymphocytes # (test code = Lymphocytes 1.3 1.0-5.5 #) [place] 247532-04-22 06:26:00 Test Item Value Reference Range Interpretation Comments Monocytes # (test code 0.7 See_Comment [Aut omated message] The = Monocytes #) system which generated this result tra nsmitted reference range : <=0.8. The reference r corey was not used to int erpret this result as normal/abnormal . [facility] CenterEfbddjfTMXTOUFFEU5792-89-11 06:26:00 Test Item Value Reference Range Interpretation Comments Eosinophils # (test code 0.2 See_Comment [A utomated message] The = Eosinophils #) system whic h generated this result tra nsmitted reference range : <=0.5. The reference r corey was not used to int erpret this result as normal/abnormal . [facility] CenterFmcjbjkWCAUUGSQIO2390-97-38 06:26:00 Test Item Value Reference Range Interpretation Comments Basophils # (test code 0.1 See_Comment [Aut omated message] The = Basophils #) system which generated this result tra nsmitted reference range : <=0.2. The reference r corey was not used to int erpret this result as normal/abnormal . [facility] CenterLjmhltrJRJILVROAH6891-42-26 06:26:00 Test Item Value Reference Range Interpretation Comments WBC (test code = WBC) 6.4 3.7-10.4 [facility] CenterNoypegaATBYDDSBZW2461-40-57 06:26:00 Test Item Value Reference Range Interpretation Comments RBC (test code = RBC) 4.38 4.70-6.10 [facility] CenterGzypboyTJULJLFLNH6293-36-04 06:26:00 Test Item Value Reference Range Interpretation Comments Hgb (test code = Hgb) 13.8 14.0-18.0 [facility]NkcttufPDCWXWSQAJ6738-92-96 06:26:00 Test Item Value Reference Range Interpretation Comments Hct (test code = Hct) 40.6 42.0-54.0 [facility] CenterRlybaprGMCONJSDOL4397-40-27 06:26:00 Test Item Value Reference Range Interpretation Comments MCV (test code = MCV) 92.9 80.0-94.0 [facility] CenterEimljjpNPOMOTRXXH8582-50-76 06:26:00 Test Item Value Reference Range Interpretation Comments MCH (test code = MCH) 31.5 pg 27.0-31.0 [facility]wallDupibygNWVHVLGSIL3939-64-35 06:26:00 Test Item Value Reference Range Interpretation Comments MCHC (test code = MCHC) 34.0 32.0-36.0 [place] 247532-04-22 06:26:00 Test Item Value Reference Range Interpretation Comments RDW (test code = RDW) 13.7 11.5-14.5 [place] 247532-04-22 06:26:00 Test Item Value Reference Range Interpretation Comments Platelet (test code = Platelet) 194 133-450 [place] 247532-04-22 06:26:00 Test Item Value Reference Range Interpretation Comments MPV (test code = MPV) 8.0 7.4-10.4 [place] 548452-04-22 06:26:00 Test Item Value Reference Range Interpretation Comments Magnesium Lvl (test code = Magnesium 2.4 1.8-2.4 Lvl) [place] 548452-04-22 06:26:00 Test Item Value Reference Range Interpretation Comments Glucose Lvl (test code = Glucose Lvl) 130 70-99 [place] 548452-04-22 06:26:00 Test Item Value Reference Range Interpretation Comments BUN (test code = BUN) 22 7-22 [place] 548452-04-22 06:26:00 Test Item Value Reference Range Interpretation Comments Creatinine Lvl (test code = Creatinine 1.31 0.50-1.40 Lvl) [place] 548452-04-22 06:26:00 Test Item Value Reference Range Interpretation Comments Sodium Lvl (test code = Sodium Lvl) 137 135-145 [place] 548452-04-22 06:26:00 Test Item Value Reference Range Interpretation Comments Potassium Lvl (test code = Potassium 3.8 3.5-5.1 Lvl) [place] 548452-04-22 06:26:00 Test Item Value Reference Range Interpretation Comments Chloride Lvl (test code = Chloride Lvl) 101 95-109 [place] 548452-04-22 06:26:00 Test Item Value Reference Range Interpretation Comments CO2 (test code = CO2) 29 24-32 [place] 548452-04-22 06:26:00 Test Item Value Reference Range Interpretation Comments AGAP (test code = AGAP) 10.8 10.0-20.0 [place] 548452-04-22 06:26:00 Test Item Value Reference Range Interpretation Comments Calcium Lvl (test code = Calcium Lvl) 9.3 8.5-10.5 [facility] [id number] 06:26:00 Test Item Value Reference Range Interpretation Comments B/C Ratio (test code = B/C Ratio) 17 1 6-25 [place] [address]-04-22 06:26:00 Test Item Value Reference Range Interpretation Comments Total Protein (test code = Total 6.9 6.4-8.4 Protein) [place] 548452-04-22 06:26:00 Test Item Value Reference Range Interpretation Comments Albumin Lvl (test code = Albumin Lvl) 3.3 3.5-5.0 [facility] [id number] 06:26:00 Test Item Value Reference Range Interpretation Comments Globulin (test code = Globulin) 3.6 2.7-4.2 [facility] [id number] 06:26:00 Test Item Value Reference Range Interpretation Comments A/G Ratio (test code = A/G Ratio) 0.9 1 0.7-1.6 [facility] [id number] 06:26:00 Test Item Value Reference Range Interpretation Comments ALT (test code = ALT) 15 See_Comment [Auto mated message] The system which ge nerated this result transmit diamante reference range : <=65. The reference range was not used to interpr et this result as amaury l/abnormal. [facility] [id number] 06:26:00 Test Item Value Reference Range Interpretation Comments AST (test code = AST) 14 See_Comment [Auto mated message] The system which ge nerated this result transmit diamante reference range : <=37. The reference range was not used to interpr et this result as amaury l/abnormal. [facility] [id number] 06:26:00 Test Item Value Reference Range Interpretation Comments Alk Phos (test code = Alk Phos) 68 39-136 [facility] [id number] 06:26:00 Test Item Value Reference Range Interpretation Comments Bili Total (test code = Bili Total) 1.3 0.2-1.3 [facility] [id number] 06:26:00 Test Item Value Reference Range Interpretation Comments eGFR (test code = eGFR) 50 [facility] [id number] 06:26:00 Test Item Value Reference Range Interpretation Comments Phosphorus (test code = Phosphorus) 3.6 2.5-4.5 [place] 247532-04-22 06:26:00 Test Item Value Reference Range Interpretation Comments Segs (test code = Segs) 64.9 45.0-75.0 [facility] DistrictEutdvwwRSUWGBOYQE0904-83-31 06:26:00 Test Item Value Reference Range Interpretation Comments Lymphocytes (test code = Lymphocytes) 20.3 20.0-40.0 [place] 247532-04-22 06:26:00 Test Item Value Reference Range Interpretation Comments Monocytes (test code = Monocytes) 10.4 2.0-12.0 [place] 247532-04-22 06:26:00 Test Item Value Reference Range Interpretation Comments Eosinophils (test code = 3.3 See_Comment [A utomated message] The Eosinophils) system which ge nerated this result tra nsmitted reference range : <=4.0. The reference r corey was not used to int erpret this result as normal/abnormal . [facility] DistrictYpmdntpQZWMGSQTAW0577-77-27 06:26:00 Test Item Value Reference Range Interpretation Comments Basophils (test code = 1.1 See_Comment [Aut omated message] The Basophils) system which ge nerated this result tra nsmitted reference range : <=1.0. The reference r corey was not used to int erpret this result as normal/abnormal . [facility] DistrictIkcmguhODLHVQKPQR6419-66-80 06:26:00 Test Item Value Reference Range Interpretation Comments Neutrophils # (test code = Neutrophils 4.2 1.5-8.1 #) [place] 247532-04-22 06:26:00 Test Item Value Reference Range Interpretation Comments Lymphocytes # (test code = Lymphocytes 1.3 1.0-5.5 #) [place] [address]-04-22 06:26:00 Test Item Value Reference Range Interpretation Comments Monocytes # (test code 0.7 See_Comment [Aut omated message] The = Monocytes #) system which generated this result tra nsmitted reference range : <=0.8. The reference r corey was not used to int erpret this result as normal/abnormal . [place] 247532-04-22 06:26:00 Test Item Value Reference Range Interpretation Comments Eosinophils # (test code 0.2 See_Comment [A utomated message] The = Eosinophils #) system whic h generated this result tra nsmitted reference range : <=0.5. The reference r corey was not used to int erpret this result as normal/abnormal . [facility] DistrictQzkcmqfFMGHGHUVGT6219-17-95 06:26:00 Test Item Value Reference Range Interpretation Comments Basophils # (test code 0.1 See_Comment [Aut omated message] The = Basophils #) system which generated this result tra nsmitted reference range : <=0.2. The reference r corey was not used to int erpret this result as normal/abnormal . [facility] DistrictUdjuhvbWZXEVUNUKM1677-56-00 06:26:00 Test Item Value Reference Range Interpretation Comments WBC (test code = WBC) 6.4 3.7-10.4 [facility] DistrictNozsldsCRMSUVTPNC3749-71-13 06:26:00 Test Item Value Reference Range Interpretation Comments RBC (test code = RBC) 4.38 4.70-6.10 [facility] DistrictRzliaspQJYSCHXXBK9053-39-06 06:26:00 Test Item Value Reference Range Interpretation Comments Hgb (test code = Hgb) 13.8 14.0-18.0 [facility] DistrictCrphgouEYQQTZKYSW9246-36-80 06:26:00 Test Item Value Reference Range Interpretation Comments Hct (test code = Hct) 40.6 42.0-54.0 [facility] DistrictIrhvzmoSVXLUQPQHU3807-57-86 06:26:00 Test Item Value Reference Range Interpretation Comments MCV (test code = MCV) 92.9 80.0-94.0 [facility] DistrictGeluxovOXPWJVTUJG3274-64-70 06:26:00 Test Item Value Reference Range Interpretation Comments MCH (test code = MCH) 31.5 pg 27.0-31.0 [facility] DistrictBujsujjAAHDFMWETF0383-61-40 06:26:00 Test Item Value Reference Range Interpretation Comments MCHC (test code = MCHC) 34.0 32.0-36.0 [facility] DistrictJvyzkcbRHZKLXUGAO7235-10-02 06:26:00 Test Item Value Reference Range Interpretation Comments RDW (test code = RDW) 13.7 11.5-14.5 [facility] DistrictCuruvglWRIFLYZREJ6953-02-34 06:26:00 Test Item Value Reference Range Interpretation Comments Platelet (test code = Platelet) 194 133-450 [facility]DpxgixzLWAMSYWGCK6494-80-36 06:26:00 Test Item Value Reference Range Interpretation Comments MPV (test code = MPV) 8.0 7.4-10.4 [facility] [id number] 11:15:00 Test Item Value Reference Range Interpretation Comments HS Troponin I (test code = HS Troponin 114 I) [facility] [id number] 11:15:00 Test Item Value Reference Range Interpretation Comments HS Troponin I (test code = HS Troponin 114 I) [facility] [id number] 08:36:00 Test Item Value Reference Range Interpretation Comments Magnesium Lvl (test code = Magnesium 2.3 1.8-2.4 Lvl) [facility]2022-04-21 08:36:00 Test Item Value Reference Range Interpretation Comments Phosphorus (test code = Phosphorus) 3.1 2.5-4.5 [facility] [id number] 08:36:00 Test Item Value Reference Range Interpretation Comments Glucose Lvl (test code = Glucose Lvl) 235 70-99 [facility]2022-04-21 08:36:00 Test Item Value Reference Range Interpretation Comments BUN (test code = BUN) 19 7-22 [facility]2022-04-21 08:36:00 Test Item Value Reference Range Interpretation Comments Creatinine Lvl (test code = Creatinine 1.37 0.50-1.40 Lvl) [facility]2022-04-21 08:36:00 Test Item Value Reference Range Interpretation Comments Sodium Lvl (test code = Sodium Lvl) 135 135-145 [facility] [id number] 08:36:00 Test Item Value Reference Range Interpretation Comments Potassium Lvl (test code = Potassium 3.7 3.5-5.1 Lvl) [facility] [id number] 08:36:00 Test Item Value Reference Range Interpretation Comments Chloride Lvl (test code = Chloride Lvl) 101 95-109 [facility]2022-04-21 08:36:00 Test Item Value Reference Range Interpretation Comments CO2 (test code = CO2) 24 24-32 [facility]2022-04-21 08:36:00 Test Item Value Reference Range Interpretation Comments AGAP (test code = AGAP) 13.7 10.0-20.0 [facility] [id number] 08:36:00 Test Item Value Reference Range Interpretation Comments Calcium Lvl (test code = Calcium Lvl) 9.1 8.5-10.5 [facility] [id number] 08:36:00 Test Item Value Reference Range Interpretation Comments B/C Ratio (test code = B/C Ratio) 14 1 6-25 [facility] [id number] 08:36:00 Test Item Value Reference Range Interpretation Comments Total Protein (test code = Total 7.2 6.4-8.4 Protein) [facility] [id number] 08:36:00 Test Item Value Reference Range Interpretation Comments Albumin Lvl (test code = Albumin Lvl) 3.5 3.5-5.0 [facility] [id number] 08:36:00 Test Item Value Reference Range Interpretation Comments Globulin (test code = Globulin) 3.7 2.7-4.2 [facility] [id number] 08:36:00 Test Item Value Reference Range Interpretation Comments A/G Ratio (test code = A/G Ratio) 0.9 1 0.7-1.6 [facility] [id number] 08:36:00 Test Item Value Reference Range Interpretation Comments ALT (test code = ALT) 18 See_Comment [Auto mated message] The system which ge nerated this result transmit diamante reference range : <=65. The reference range was not used to interpr et this result as amaury l/abnormal. [facility] [employer] [id number] 08:36:00 Test Item Value Reference Range Interpretation Comments AST (test code = AST) 16 See_Comment [Auto mated message] The system which ge nerated this result transmit diamante reference range : <=37. The reference range was not used to interpr et this result as amaury l/abnormal. [facility] [id number] 08:36:00 Test Item Value Reference Range Interpretation Comments Alk Phos (test code = Alk Phos) 71 39-136 [facility] [id number] 08:36:00 Test Item Value Reference Range Interpretation Comments Bili Total (test code = Bili Total) 1.1 0.2-1.3 [facility] [id number] 08:36:00 Test Item Value Reference Range Interpretation Comments eGFR (test code = eGFR) 48 [facility] [id number] 08:36:00 Test Item Value Reference Range Interpretation Comments Bili Direct (test code 0.2 See_Comment [Aut omated message] The = Bili Direct) system which generated this result tra nsmitted reference range : <=0.3. The reference r corey was not used to int erpret this result as amaury l/abnormal. [facility] DistrictGniuvdlFQOOHDWVLI8406-94-49 08:36:00 Test Item Value Reference Range Interpretation Comments WBC (test code = WBC) 7.7 3.7-10.4 [place] 247532-04-21 08:36:00 Test Item Value Reference Range Interpretation Comments RBC (test code = RBC) 4.55 4.70-6.10 [facility] DistrictPfbzsitCVXIXGORIA3905-36-60 08:36:00 Test Item Value Reference Range Interpretation Comments Hgb (test code = Hgb) 14.3 14.0-18.0 [place] 247532-04-21 08:36:00 Test Item Value Reference Range Interpretation Comments Hct (test code = Hct) 42.6 42.0-54.0 [place] 247532-04-21 08:36:00 Test Item Value Reference Range Interpretation Comments MCV (test code = MCV) 93.7 80.0-94.0 [place] 247532-04-21 08:36:00 Test Item Value Reference Range Interpretation Comments MCH (test code = MCH) 31.4 pg 27.0-31.0 [place] 247532-04-21 08:36:00 Test Item Value Reference Range Interpretation Comments MCHC (test code = MCHC) 33.5 32.0-36.0 [place] 247532-04-21 08:36:00 Test Item Value Reference Range Interpretation Comments RDW (test code = RDW) 13.6 11.5-14.5 [place] 247532-04-21 08:36:00 Test Item Value Reference Range Interpretation Comments Platelet (test code = Platelet) 242 133-450 [facility] DistrictYzvcrbrTUMXHIBZJL8596-47-74 08:36:00 Test Item Value Reference Range Interpretation Comments MPV (test code = MPV) 8.0 7.4-10.4 [place] [address]-04-21 08:36:00 Test Item Value Reference Range Interpretation Comments PT (test code = PT) 13.2 s 12.0-14.7 [place] [address]-04-21 08:36:00 Test Item Value Reference Range Interpretation Comments INR (test code = INR) 1.01 1 0.85-1.17 [place] [address]-04-21 08:36:00 Test Item Value Reference Range Interpretation Comments PTT (test code = PTT) 24.7 s 22.9-35.8 [place] [address]-04-21 08:36:00 Test Item Value Reference Range Interpretation Comments Segs (test code = Segs) 61.0 45.0-75.0 [place] [address]-04-21 08:36:00 Test Item Value Reference Range Interpretation Comments Lymphocytes (test code = Lymphocytes) 24.8 20.0-40.0 [place] [address]-04-21 08:36:00 Test Item Value Reference Range Interpretation Comments Monocytes (test code = Monocytes) 9.1 2.0-12.0 [place] [address]-04-21 08:36:00 Test Item Value Reference Range Interpretation Comments Eosinophils (test code = 4.3 See_Comment [A utomated message] The Eosinophils) system which ge nerated this result tra nsmitted reference range : <=4.0. The reference r corey was not used to int erpret this result as normal/abnormal . [place] [address]-04-21 08:36:00 Test Item Value Reference Range Interpretation Comments Basophils (test code = 0.8 See_Comment [Aut omated message] The Basophils) system which ge nerated this result tra nsmitted reference range : <=1.0. The reference r corey was not used to int erpret this result as normal/abnormal . [place] [address]-04-21 08:36:00 Test Item Value Reference Range Interpretation Comments Neutrophils # (test code = Neutrophils 4.7 1.5-8.1 #) [place] [address]-04-21 08:36:00 Test Item Value Reference Range Interpretation Comments Lymphocytes # (test code = Lymphocytes 1.9 1.0-5.5 #) [place] 247532-04-21 08:36:00 Test Item Value Reference Range Interpretation Comments Monocytes # (test code 0.7 See_Comment [Aut omated message] The = Monocytes #) system which generated this result tra nsmitted reference range : <=0.8. The reference r corey was not used to int erpret this result as normal/abnormal . [place] 247532-04-21 08:36:00 Test Item Value Reference Range Interpretation Comments Eosinophils # (test code 0.3 See_Comment [A utomated message] The = Eosinophils #) system whic h generated this result tra nsmitted reference range : <=0.5. The reference r corey was not used to int erpret this result as normal/abnormal . [place] 247532-04-21 08:36:00 Test Item Value Reference Range Interpretation Comments Basophils # (test code 0.1 See_Comment [Aut omated message] The = Basophils #) system which generated this result tra nsmitted reference range : <=0.2. The reference r corey was not used to int erpret this result as normal/abnormal . [facility] DistrictXiymwqjHWLOGXMSZM0914-63-44 08:36:00 Test Item Value Reference Range Interpretation Comments Hgb (test code = Hgb) 14.3 14.0-18.0 [place] 247532-04-21 08:36:00 Test Item Value Reference Range Interpretation Comments Hct (test code = Hct) 42.6 42.0-54.0 [place] 247532-04-21 08:36:00 Test Item Value Reference Range Interpretation Comments MCV (test code = MCV) 93.7 80.0-94.0 [place] [address]-04-21 08:36:00 Test Item Value Reference Range Interpretation Comments MCH (test code = MCH) 31.4 pg 27.0-31.0 [place] 247532-04-21 08:36:00 Test Item Value Reference Range Interpretation Comments MCHC (test code = MCHC) 33.5 32.0-36.0 [place] 247532-04-21 08:36:00 Test Item Value Reference Range Interpretation Comments RDW (test code = RDW) 13.6 11.5-14.5 [facility] DistrictEqkbzkgFYXQBERJJW9726-12-69 08:36:00 Test Item Value Reference Range Interpretation Comments Platelet (test code = Platelet) 242 133-450 [place] 247532-04-21 08:36:00 Test Item Value Reference Range Interpretation Comments MPV (test code = MPV) 8.0 7.4-10.4 [place] 247532-04-21 08:36:00 Test Item Value Reference Range Interpretation Comments PT (test code = PT) 13.2 s 12.0-14.7 [place] 247532-04-21 08:36:00 Test Item Value Reference Range Interpretation Comments INR (test code = INR) 1.01 1 0.85-1.17 [place] 247532-04-21 08:36:00 Test Item Value Reference Range Interpretation Comments PTT (test code = PTT) 24.7 s 22.9-35.8 [place] 247532-04-21 08:36:00 Test Item Value Reference Range Interpretation Comments Segs (test code = Segs) 61.0 45.0-75.0 [place] 247532-04-21 08:36:00 Test Item Value Reference Range Interpretation Comments Lymphocytes (test code = Lymphocytes) 24.8 20.0-40.0 [facility] DistrictQbwdbtkNUZNVMMSEI9324-39-90 08:36:00 Test Item Value Reference Range Interpretation Comments Monocytes (test code = Monocytes) 9.1 2.0-12.0 [facility] DistrictSinrxmaGCONJWLPRH9389-64-35 08:36:00 Test Item Value Reference Range Interpretation Comments Eosinophils (test code = 4.3 See_Comment [A utomated message] The Eosinophils) system which ge nerated this result tra nsmitted reference range : <=4.0. The reference r corey was not used to int erpret this result as normal/abnormal . [place] 247532-04-21 08:36:00 Test Item Value Reference Range Interpretation Comments Basophils (test code = 0.8 See_Comment [Aut omated message] The Basophils) system which ge nerated this result tra nsmitted reference range : <=1.0. The reference r corey was not used to int erpret this result as normal/abnormal . [place] [address]-04-21 08:36:00 Test Item Value Reference Range Interpretation Comments Neutrophils # (test code = Neutrophils 4.7 1.5-8.1 #) [place] [address]-04-21 08:36:00 Test Item Value Reference Range Interpretation Comments Lymphocytes # (test code = Lymphocytes 1.9 1.0-5.5 #) [address]04-21 08:36:00 Test Item Value Reference Range Interpretation Comments Monocytes # (test code 0.7 See_Comment [Aut omated message] The = Monocytes #) system which generated this result tra nsmitted reference range : <=0.8. The reference r corey was not used to int erpret this result as normal/abnormal . [address]04-21 08:36:00 Test Item Value Reference Range Interpretation Comments Eosinophils # (test code 0.3 See_Comment [A utomated message] The = Eosinophils #) system whic h generated this result tra nsmitted reference range : <=0.5. The reference r corey was not used to int erpret this result as normal/abnormal . [place] [address]-04-21 08:36:00 Test Item Value Reference Range Interpretation Comments Basophils # (test code 0.1 See_Comment [Aut omated message] The = Basophils #) system which generated this result tra nsmitted reference range : <=0.2. The reference r corey was not used to int erpret this result as normal/abnormal . [place] 548452-04-21 08:36:00 Test Item Value Reference Range Interpretation Comments Magnesium Lvl (test code = Magnesium 2.3 1.8-2.4 Lvl) [address]04-21 08:36:00 Test Item Value Reference Range Interpretation Comments Phosphorus (test code = Phosphorus) 3.1 2.5-4.5 [place] [address]-04-21 08:36:00 Test Item Value Reference Range Interpretation Comments Glucose Lvl (test code = Glucose Lvl) 235 70-99 [place] [address]-04-21 08:36:00 Test Item Value Reference Range Interpretation Comments BUN (test code = BUN) 19 7-22 [place] [address]-04-21 08:36:00 Test Item Value Reference Range Interpretation Comments Creatinine Lvl (test code = Creatinine 1.37 0.50-1.40 Lvl) [place] 548452-04-21 08:36:00 Test Item Value Reference Range Interpretation Comments Sodium Lvl (test code = Sodium Lvl) 135 135-145 [place] 548452-04-21 08:36:00 Test Item Value Reference Range Interpretation Comments Potassium Lvl (test code = Potassium 3.7 3.5-5.1 Lvl) [place] 548452-04-21 08:36:00 Test Item Value Reference Range Interpretation Comments Chloride Lvl (test code = Chloride Lvl) 101 95-109 [place] 548452-04-21 08:36:00 Test Item Value Reference Range Interpretation Comments CO2 (test code = CO2) 24 24-32 [place] 548452-04-21 08:36:00 Test Item Value Reference Range Interpretation Comments AGAP (test code = AGAP) 13.7 10.0-20.0 [place] 548452-04-21 08:36:00 Test Item Value Reference Range Interpretation Comments Calcium Lvl (test code = Calcium Lvl) 9.1 8.5-10.5 [place] 548452-04-21 08:36:00 Test Item Value Reference Range Interpretation Comments B/C Ratio (test code = B/C Ratio) 14 1 6-25 [place] 548452-04-21 08:36:00 Test Item Value Reference Range Interpretation Comments Total Protein (test code = Total 7.2 6.4-8.4 Protein) [place] 548452-04-21 08:36:00 Test Item Value Reference Range Interpretation Comments Albumin Lvl (test code = Albumin Lvl) 3.5 3.5-5.0 [place] 548452-04-21 08:36:00 Test Item Value Reference Range Interpretation Comments Globulin (test code = Globulin) 3.7 2.7-4.2 [place] 548452-04-21 08:36:00 Test Item Value Reference Range Interpretation Comments A/G Ratio (test code = A/G Ratio) 0.9 1 0.7-1.6 [place] 548452-04-21 08:36:00 Test Item Value Reference Range Interpretation Comments ALT (test code = ALT) 18 See_Comment [Auto mated message] The system which ge nerated this result transmit diamante reference range : <=65. The reference range was not used to interpr et this result as amaury l/abnormal. [employer]2-04-21 08:36:00 Test Item Value Reference Range Interpretation Comments AST (test code = AST) 16 See_Comment [Auto mated message] The system which ge nerated this result transmit diamante reference range : <=37. The reference range was not used to interpr et this result as amaury l/abnormal. [employer]2022-04-21 08:36:00 Test Item Value Reference Range Interpretation Comments Alk Phos (test code = Alk Phos) 71 39-136 [employer]2022-04-21 08:36:00 Test Item Value Reference Range Interpretation Comments Bili Total (test code = Bili Total) 1.1 0.2-1.3 [employer]2022-04-21 08:36:00 Test Item Value Reference Range Interpretation Comments eGFR (test code = eGFR) 48 [facility] [employer]2-04-21 08:36:00 Test Item Value Reference Range Interpretation Comments Bili Direct (test code 0.2 See_Comment [Aut omated message] The = Bili Direct) system which generated this result tra nsmitted reference range : <=0.3. The reference r corey was not used to int erpret this result as amaury l/abnormal. [facility] NmmkgcfLFCESEFJTL5100-13-23 08:36:00 Test Item Value Reference Range Interpretation Comments WBC (test code = WBC) 7.7 3.7-10.4 [facility] [id number] 08:36:00 Test Item Value Reference Range Interpretation Comments RBC (test code = RBC) 4.55 4.70-6.10 [facility] Clinithink2022-04-20 15:17:00 Test Item Value Reference Range Interpretation Comments HS Troponin I 1 Hr (test code = HS 114 Troponin I 1 Hr) [facility] Tripl [id number] 15:17:00 Test Item Value Reference Range Interpretation Comments HS Troponin I 0 to 1 Hour Delta (test -3 code = HS Troponin I 0 to 1 Hour Delta) [facility] [id number] 15:17:00 Test Item Value Reference Range Interpretation Comments HS Troponin I 1 Hr (test code = HS 114 Troponin I 1 Hr) [facility] [id number] 15:17:00 Test Item Value Reference Range Interpretation Comments HS Troponin I 0 to 1 Hour Delta (test -3 code = HS Troponin I 0 to 1 Hour Delta) [facility] [id number] 13:55:00 Test Item Value Reference Range Interpretation Comments HS Troponin I Baseline (test code = HS 117 Troponin I Baseline) [facility]wallIjgluzzJVKCRI2777-37-04 13:55:00 Test Item Value Reference Range Interpretation Comments Trig (test code = Trig) 128 [facility]wallCnmqqhiHEUSKC4770-70-30 13:55:00 Test Item Value Reference Range Interpretation Comments Chol (test code = Chol) 86 [facility] RockwallScaldgsCVNJEY1512-36-48 13:55:00 Test Item Value Reference Range Interpretation Comments HDL (test code = HDL) 50 [facility]UsiqvosXOPWZA1559-06-83 13:55:00 Test Item Value Reference Range Interpretation Comments CHD Risk (test code = CHD Risk) 1.72 1 4.00-7.30 [facility]wallErpbufzCPAHYD7152-27-37 13:55:00 Test Item Value Reference Range Interpretation Comments LDL (Calculated) (test code = LDL 10 (Calculated)) [facility] CenterDbbaydfPYIFSS4895-25-20 13:55:00 Test Item Value Reference Range Interpretation Comments VLDL (test code = VLDL) 26 [facility] [id number] 13:55:00 Test Item Value Reference Range Interpretation Comments Hgb A1C (test code = Hgb A1C) 9.9 [facility] CenterCARAC [id number] 13:55:00 Test Item Value Reference Range Interpretation Comments HS Troponin I Baseline (test code = HS 117 Troponin I Baseline) [facility]wallDfmfmatECUBUL9678-27-60 13:55:00 Test Item Value Reference Range Interpretation Comments Trig (test code = Trig) 128 [facility] CenterBolneosHSHNMQ6882-24-27 13:55:00 Test Item Value Reference Range Interpretation Comments Chol (test code = Chol) 86 [facility] CenterCixtkouHPWSQD1733-80-73 13:55:00 Test Item Value Reference Range Interpretation Comments HDL (test code = HDL) 50 [facility]wallZtazebaOJNBKS0271-83-18 13:55:00 Test Item Value Reference Range Interpretation Comments CHD Risk (test code = CHD Risk) 1.72 1 4.00-7.30 [facility]wallEcxusglMMFDZF4197-55-02 13:55:00 Test Item Value Reference Range Interpretation Comments LDL (Calculated) (test code = LDL 10 (Calculated)) [facility]wallMxehslgKLEAEL7628-72-74 13:55:00 Test Item Value Reference Range Interpretation Comments VLDL (test code = VLDL) 26 1 [facility] RockwallTaskIT, Inc.[facility] [id number] 13:55:00 Test Item Value Reference Range Interpretation Comments Hgb A1C (test code = Hgb A1C) 9.9 [employer]ait [id number] 12:59:00 Test Item Value Reference Range Interpretation Comments POC Creatinine (test code = POC 1.5 0.5-1.4 Creatinine) [facility] [employer] [id number] 12:59:00 Test Item Value Reference Range Interpretation Comments POC Creatinine (test code = POC 1.5 0.5-1.4 Creatinine) [facility] MwqweetUJJXJEOKSZ7294-04-44 12:16:00 Test Item Value Reference Range Interpretation Comments Coronavirus (COVID-19) Not Detected (03/05/22 ERI (test code = 7:16 AM) Coronavirus (COVID-19) ERI) [facility] GcitkixNLCOMQCOYE6899-52-30 12:16:00 Test Item Value Reference Range Interpretation Comments Coronavirus (COVID-19) Not Detected (03/05/22 ERI (test code = 7:16 AM) Coronavirus (COVID-19) ERI) [employer] [id number] 11:47:00 Test Item Value Reference Range Interpretation Comments ABO/Rh (test code = ABO/Rh) A POS [facility] [employer] [id number] 11:47:00 Test Item Value Reference Range Interpretation Comments Antibody Scrn (test Negative (03/05/22 6:47 code = Antibody Scrn) AM) [facility] [employer] [id number] 11:47:00 Test Item Value Reference Range Interpretation Comments Total Protein (test code = Total 6.7 6.4-8.4 Protein) [employer]2022-04-20 11:47:00 Test Item Value Reference Range Interpretation Comments Albumin Lvl (test code = Albumin Lvl) 3.3 3.5-5.0 [facility]wallYoutego [id number] 11:47:00 Test Item Value Reference Range Interpretation Comments ALT (test code = ALT) 19 See_Comment [Auto mated message] The system which ge nerated this result transmit diamante reference range : <=65. The reference range was not used to interpr et this result as amaury l/abnormal. [facility] RockwallYoutego [id number] 11:47:00 Test Item Value Reference Range Interpretation Comments AST (test code = AST) 18 See_Comment [Auto mated message] The system which ge nerated this result transmit diamante reference range : <=37. The reference range was not used to interpr et this result as amaury l/abnormal. [facility]wallYou[facility] [id number] 11:47:00 Test Item Value Reference Range Interpretation Comments Alk Phos (test code = Alk Phos) 66 39-136 [facility]wallYou[facility] [id number] 11:47:00 Test Item Value Reference Range Interpretation Comments Bili Total (test code = Bili Total) 0.6 0.2-1.3 [facility]wallYou[facility] [id number] 11:47:00 Test Item Value Reference Range Interpretation Comments B/C Ratio (test code = B/C Ratio) 12 1 6-25 [facility]wallYou[facility] [id number] 11:47:00 Test Item Value Reference Range Interpretation Comments Globulin (test code = Globulin) 3.4 2.7-4.2 [facility] [id number] 11:47:00 Test Item Value Reference Range Interpretation Comments A/G Ratio (test code = A/G Ratio) 1.0 1 0.7-1.6 [facility] RockwallAvyozscHNUJQEUOGK1048-26-81 11:47:00 Test Item Value Reference Range Interpretation Comments PTT (test code = PTT) 30.8 s 22.9-35.8 [facility]wallannPARATHYROID [id number] 11:47:00 Test Item Value Reference Range Interpretation Comments Ca Ion WB (test code = Ca Ion WB) 1.05 1.05-1.25 [facility]wallannPARATHYROID [id number] 11:47:00 Test Item Value Reference Range Interpretation Comments Ca Ion at pH 7.4 WB (test code = Ca Ion 1.03 1.05-1.25 at pH 7.4 WB) [employer] [id number] 11:47:00 Test Item Value Reference Range Interpretation Comments ABO/Rh (test code = ABO/Rh) A POS [facility] [employer] [id number] 11:47:00 Test Item Value Reference Range Interpretation Comments Antibody Scrn (test Negative (03/05/22 6:47 code = Antibody Scrn) AM) [facility] [employer] [id number] 11:47:00 Test Item Value Reference Range Interpretation Comments Total Protein (test code = Total 6.7 6.4-8.4 Protein) [facility] [employer]2022-04-20 11:47:00 Test Item Value Reference Range Interpretation Comments Albumin Lvl (test code = Albumin Lvl) 3.3 3.5-5.0 [facility] [employer]2022-04-20 11:47:00 Test Item Value Reference Range Interpretation Comments ALT (test code = ALT) 19 See_Comment [Auto mated message] The system which ge nerated this result transmit diamante reference range : <=65. The reference range was not used to interpr et this result as amaury l/abnormal. [employer]2022-04-20 11:47:00 Test Item Value Reference Range Interpretation Comments AST (test code = AST) 18 See_Comment [Auto mated message] The system which ge nerated this result transmit diamante reference range : <=37. The reference range was not used to interpr et this result as amaury l/abnormal. [employer]2022-04-20 11:47:00 Test Item Value Reference Range Interpretation Comments Alk Phos (test code = Alk Phos) 66 39-136 [facility] [employer]2022-04-20 11:47:00 Test Item Value Reference Range Interpretation Comments Bili Total (test code = Bili Total) 0.6 0.2-1.3 [facility] [employer]2022-04-20 11:47:00 Test Item Value Reference Range Interpretation Comments B/C Ratio (test code = B/C Ratio) 12 1 6-25 [facility] [employer]2022-04-20 11:47:00 Test Item Value Reference Range Interpretation Comments Globulin (test code = Globulin) 3.4 2.7-4.2 [facility] CenterCHEM [id number] 11:47:00 Test Item Value Reference Range Interpretation Comments A/G Ratio (test code = A/G Ratio) 1.0 1 0.7-1.6 [facility] CenterKhgppekZBMDOCLMQW1140-88-84 11:47:00 Test Item Value Reference Range Interpretation Comments PTT (test code = PTT) 30.8 s 22.9-35.8 [facility] CenterPARATHYROID [id number] 11:47:00 Test Item Value Reference Range Interpretation Comments Ca Ion WB (test code = Ca Ion WB) 1.05 1.05-1.25 [facility] [id number] 11:47:00 Test Item Value Reference Range Interpretation Comments Ca Ion at pH 7.4 WB (test code = Ca Ion 1.03 1.05-1.25 at pH 7.4 WB) [facility]2022-02-09 17:17:57 Test Item Value Reference Range Interpretation Comments POC glucose (test code = 112 mg/dL 65-99 H Ope rator Name: [id number]) Radu Duffy ice ID: [id number] able: [facility] Notified associate software developer Interpretation (test Abnormal code = 04505-5) [facility] jhcjqkp9091-79-53 17:17:57 Test Item Value Reference Range Interpretation Comments POC glucose (test code = 112 mg/dL 65-99 H Ope rator Name: [id number]) Radu Duffy ice ID: [id number] able: [facility] Notified associate software developer Interpretation (test Abnormal code = 30097-3) [facility] 12 urlo8923-17-25 22:21:01 Test Item Value Reference Range Interpretation Comments Ventricular rate (test code = 253) Atrial rate (test code = 255) CA interval (test code = 266) QRSD interval [...] out Inferior infarct , age undetermined-[facility] [id number] 22:21:01 Test Item Value Reference Range Interpretation Comments Ventricular rate (test code = 253) Atrial rate (test code = 255) CA interval (test code = 266) QRSD interval [...] out Inferior infarct , age undetermined-[facility]normal [facility] olfr2022-42-70 20:13:39 Test Item Value Reference Range Interpretation Comments Resting HR (test code = 5863018416) Resting BP (test code = 9162122504) Peak MET Achieved (test code = 3627641269) Protocol Name (test Lexiscan code = 9439977865) Time in Exercise 00:01:00 Phase (test code = 8552122206) Max Systolic BP (test code = 3012478931) Max Diastolic BP (test code = 9069235074) Max Heart Rate (test code = 1426566150) Max Predicted Heart Rate (test code = 5196762675) Target HR Formula (220 - Age)*100% (test code = 8420615093) Test Indication (test chest pain code = 3024803521) Arrhy During Ex (test code = 0472794518) ECG Interp Before EX (test code = 2165068636) ECG Interp During Ex (test code = 0663709834) Ex Summary Comment (test code = 6725301513) Overall HR Response to Exercise (test code = 7750072389) Overall BP Response To Exercise (test code = 2949284864) Reason for Protocol Complete Termination (test code = 4153310994) Stress Test -Waveform interpreted in Impression (test code report associated with = 6854090312) image study. No interpretation is provided as part of this Stress ECG report.- [facility] [id number] 20:13:39 Test Item Value Reference Range Interpretation Comments Resting HR (test code = 4282306772) Resting BP (test code = 9725554009) Peak MET Achieved (test code = 7873086605) Protocol Name (test Lexiscan code = 8023315216) Time in Exercise 00:01:00 Phase (test code = 6122963633) Max Systolic BP (test code = 8444802835) Max Diastolic BP (test code = 5135699550) Max Heart Rate (test code = 0593709752) Max Predicted Heart Rate (test code = 9967197542) Target HR Formula (220 - Age)*100% (test code = 4174544278) Test Indication (test chest pain code = 3690791928) Arrhy During Ex (test code = 2418245267) ECG Interp Before EX (test code = 4984057731) ECG Interp During Ex (test code = 1791840446) Ex Summary Comment (test code = 0152204985) Overall HR Response to Exercise (test code = 6875039255) Overall BP Response To Exercise (test code = 4831250343) Reason for Protocol Complete Termination (test code = 6606836366) Stress Test -Waveform interpreted in Impression (test code report associated with = 2724596043) image study. 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 (test code = 81278-7) Whether the patient has symptoms related to condition of interest (test code = 65453-9) Patient was hospitalized because of this condition (test code = 34402-4) Whether the patient was admitted to intensive care unit (ICU) for condition of interest (test code = 83979-9) Whether patient resides in a congregate care setting (test code = 70849-3) POCT GLUCOSE (AUTOMATED)2021-11-02 22:57:12 Test Item Value Reference Range Interpretation Comments POCT GLU (test code = 2372721433) 224 mg/dL 70-110 H Lab Interpretation (test code = Abnormal 15950-1) [facility] LEAD ROUT[facility] [id number] 22:37:57 Test Item Value Reference Range Interpretation Comments Lab Interpretation (test code = Abnormal 09093-1) [facility]2021-11-02 17:43:02 Test Item Value Reference Range Interpretation Comments POCT GLU (test code = 6487157184) 264 mg/dL 70-110 H Lab Interpretation (test code = Abnormal 98287-1) [facility]TR[facility] [id number] 15:07:47 Test Item Value Reference Interpretation Comments Range TROPONIN I (test 0.064 ng/mL See_Comment H [Automated code = 7093257704) message] The system which generated this result [...] biotin. Lab Interpretation Abnormal (test code = 89291-4) [facility]MINAL [id number]-[id number] 15:04:26 Test Item Value Reference Range Interpretation Comments NT-proBNP (test code 800 pg/mL See_Comment H [Autom ated = 5713434414) message] The system which generated this result transmitted reference range : <=450. The reference range was not used to interpret this result as normal/abnormal . ALYSSA (test code = ALYSSA) Biotin has been reported to cause a negative bias, interpret results relative to patient's use of biotin. Lab Interpretation Abnormal (test code = 90917-1) [facility]POWA GLUCOSE (AUTOMATED)2021-11-02 13:36:38 Test Item Value Reference Range Interpretation Comments POCT GLU (test code = 0515384043) 185 mg/dL 70-110 H Lab Interpretation (test code = Abnormal 25805-9) [facility] METABOLIC PANEL (NA, K, CL, CO2, GLUCOSE, BUN, CREATININE, CA)2021-11-02 10:26:43 Test Item Value Reference Range Interpretation Comments NA (test code = 136 mmol/L 135-145 5066084215) K (test code = 4.0 mmol/L 3.5-5.0 6720654639) CL (test code = 99 mmol/L 98-108 6783075886) CO2 TOTAL (test code = 27 mmol/L 23-31 2994395766) AGAP (test code = 2-16 7115818318) BUN (test code = 30 mg/dL 7-23 H 5279295128) GLUCOSE (test code = 165 mg/dL 70-110 H 6441724153) CREATININE (test code = 1.42 mg/dL 0.60-1.25 H 3977275395) CALCIUM (test code = 9.5 mg/dL 8.6-10.6 9372730076) eGFR (test code = mL/min/1.73m2 4108232267) ALYSSA (test code = ALYSSA) Association of [...] tests). Lab Interpretation Abnormal (test code = 48383-2) [facility] WITH [id number] 10:01:58 Test Item Value Reference Range Interpretation [...] RDW-SD (test code = 39.8 fL 38.5-51.6 37606-1) RDW-CV (test code = 11.5 % 12.1-15.4 L 788-0) PLT (test code = See_Comment [Automated 777-3) message] The sy stem which generated this result transmitted reference range : 150 - 328 10*3/ ?L. The reference r corey was not used to interpret this result as normal/abnormal . MPV (test code = 10.5 fL 9.8-13.0 83213-0) NRBC/100 WBC (test See_Comment [Automat ed code = 4187867674) message] The system which generated this result transmitted reference range : 0.0 - 10.0 /100 WBCs. The refer ence range was not u sed to interpret th is result as normal/abnormal . NRBC x10^3 (test code <0.01 See_Comment [Auto mated = 1338708454) message] The s ystem which generated this result transmitted reference range : 10*3/?L. The reference range was not used to interpret this result as normal/abnormal . GRAN MAT (NEUT) % 59.3 % (test code = 770-8) IMM GRAN % (test code 0.30 % = 4439157910) LYMPH % (test code = 25.0 % 736-9) MONO % (test code = 10.7 % 5905-5) EOS % (test code = 4.1 % 713-8) BASO % (test code = 0.6 % 706-2) GRAN MAT x10^3(ANC) 4.19 10*3/uL 1.99-6.95 (test code = 3340831213) IMM GRAN x10^3 (test <0.03 0.00-0.06 code = 4997296973) LYMPH x10^3 (test code 1.77 10*3/uL 1.09-3.23 = 731-0) MONO x10^3 (test code 0.76 10*3/uL 0.36-1.02 = 742-7) EOS x10^3 (test code = 0.29 10*3/uL 0.06-0.53 711-2) BASO x10^3 (test code 0.04 10*3/uL 0.01-0.09 = 704-7) Lab Interpretation Abnormal (test code = 36879-3) [facility] GLUCOSE (AUTOMATED)2021-11-02 01:29:56 Test Item Value Reference Range Interpretation Comments POCT GLU (test code = 5802260672) 167 mg/dL 70-110 H Lab Interpretation (test code = Abnormal 06063-8) [facility] GLUCOSE (AUTOMATED)2021-11-01 17:40:19 Test Item Value Reference Range Interpretation Comments POCT GLU (test code = 8304479245) 193 mg/dL 70-110 H Lab Interpretation (test code = Abnormal 83772-2) [facility] GLUCOSE (AUTOMATED)2021-11-01 13:44:28 Test Item Value Reference Range Interpretation Comments POCT GLU (test code = 5595802863) 200 mg/dL 70-110 H Lab Interpretation (test code = Abnormal 21444-4) [facility] GLUCOSE (AUTOMATED)2021-11-01 01:38:43 Test Item Value Reference Range Interpretation Comments POCT GLU (test code = 9108770006) 177 mg/dL 70-110 H Lab Interpretation (test code = Abnormal 41459-6) [facility] GLUCOSE (AUTOMATED)2021-10-31 22:39:43 Test Item Value Reference Range Interpretation Comments POCT GLU (test code = 9871028483) 174 mg/dL 70-110 H Lab Interpretation (test code = Abnormal 86914-7) [facility] GLUCOSE (AUTOMATED)2021-10-31 17:40:22 Test Item Value Reference Range Interpretation Comments POCT GLU (test code = 8928263845) 224 mg/dL 70-110 H Lab Interpretation (test code = Abnormal 06855-8) [facility] [id number] 17:14:58 Test Item Value Reference Interpretation Comments Range TROPONIN I (test 0.080 ng/mL See_Comment H [Automated code = 1793381420) message] The system which generated this result [...] biotin. Lab Interpretation Abnormal (test code = 03894-9) [facility]AL [id number]-NIB3658-49-16 15:14:03 Test Item Value Reference Range Interpretation Comments NT-proBNP (test code 474 pg/mL See_Comment H [Autom ated = 9165072338) message] The system which generated this result transmitted reference range : <=450. The reference range was not used to interpret this result as normal/abnormal . ALYSSA (test code = ALYSSA) Biotin has been reported to cause a negative bias, interpret results relative to patient's use of biotin. Lab Interpretation Abnormal (test code = 15308-1) [facility] HospitalLIPID PANEL (86498)(TOTAL CHOLESTEROL, TRIGLYCERIDES, HDL)2021-10-31 15:05:19 Test Item Value Reference Range Interpretation Comments CHOL (test code = 101 mg/dL 120-200 L 0542493837) HDL (test code = 36 mg/dL >40 L 5918244954) HDLC RATIO (test code = See_Comment [Au tomated message] 9812077586) The system eTipping generated this result transmit diamante reference range : <=5.0. The refe rence range was not u sed to interpret th is result as normal/abnormal . TRIG (test code = 143 mg/dL 30-170 7555644864) LDL CHOL (test code = 36 mg/dL See_Comment [Auto mated message] 56180-8) The system [employer] generated this result transmit diamante reference range : <=160. The refe rence range was not u sed to interpret th is result as normal/abnormal . VLDL (test code = 29 mg/dL 5-60 8814418499) Lab Interpretation (test Abnormal code = 99970-0) [facility]2021-10-31 13:44:00 Test Item Value Reference Range Interpretation Comments POCT GLU (test code = 1750563953) 150 mg/dL 70-110 H Lab Interpretation (test code = Abnormal 53657-0) [facility] with Bpaagnwrwdab4888-18-44 11:13:14 Test Item Value Reference Range Interpretation [...] RDW-SD (test code = 39.9 fL 38.5-51.6 21054-5) RDW-CV (test code = 11.8 % 12.1-15.4 L 788-0) PLT (test code = See_Comment [Automated 777-3) message] The sy stem which generated this result transmitted reference range : 150 - 328 10*3/ ?L. The reference r corey was not used to interpret this result as normal/abnormal . MPV (test code = 11.0 fL 9.8-13.0 66226-9) NRBC/100 WBC (test See_Comment [Automat ed code = 0822220120) message] The system which generated this result transmitted reference range : 0.0 - 10.0 /100 WBCs. The refer ence range was not u sed to interpret th is result as normal/abnormal . NRBC x10^3 (test code <0.01 See_Comment [Auto mated = 0779829188) message] The s ystem which generated this result transmitted reference range : 10*3/?L. The reference range was not used to interpret this result as normal/abnormal . GRAN MAT (NEUT) % 64.3 % (test code = 770-8) IMM GRAN % (test code 0.30 % = 8230513838) LYMPH % (test code = 21.7 % 736-9) MONO % (test code = 10.0 % 5905-5) EOS % (test code = 3.1 % 713-8) BASO % (test code = 0.6 % 706-2) GRAN MAT x10^3(ANC) 4.35 10*3/uL 1.99-6.95 (test code = 2019136549) IMM GRAN x10^3 (test <0.03 0.00-0.06 code = 5951443226) LYMPH x10^3 (test code 1.47 10*3/uL 1.09-3.23 = 731-0) MONO x10^3 (test code 0.68 10*3/uL 0.36-1.02 = 742-7) EOS x10^3 (test code = 0.21 10*3/uL 0.06-0.53 711-2) BASO x10^3 (test code 0.04 10*3/uL 0.01-0.09 = 704-7) Lab Interpretation Abnormal (test code = 74332-8) [facility] HospitalKATEKvng [id number] 11:09:53 Test Item Value Reference Interpretation Comments Range TROPONIN I (test 0.101 ng/mL See_Comment H [Automated code = 9272167084) message] The system which generated this result [...] biotin. Lab Interpretation Abnormal (test code = 35443-0) [facility] Metabolic Panel (NA, K, CL, CO2, GLUCOSE, BUN, CREATININE, CA)2021-10-31 10:59:31 Test Item Value Reference Range Interpretation Comments NA (test code = 139 mmol/L 135-145 8178399846) K (test code = 4.1 mmol/L 3.5-5.0 9034484372) CL (test code = 103 mmol/L 98-108 1896818301) CO2 TOTAL (test code = 28 mmol/L 23-31 2082886464) AGAP (test code = 2-16 0058150062) BUN (test code = 43 mg/dL 7-23 H 6737832173) GLUCOSE (test code = 165 mg/dL 70-110 H 7423989796) CREATININE (test code = 1.68 mg/dL 0.60-1.25 H 4758927835) CALCIUM (test code = 9.6 mg/dL 8.6-10.6 6261354044) eGFR (test code = mL/min/1.73m2 5093101294) ALYSSA (test code = ALYSSA) Association of [...] tests). Lab Interpretation Abnormal (test code = 00958-5) [facility] HospitalGlycosylated Hemoglobin (A1C)2021-10-31 09:13:40 Test Item Value Reference Range Interpretation Comments HGB A1C (test code = 6.8 % 4.0-5.7 H 4548-4) ALYSSA (test code = ALYSSA) Reference RangesNormal: <5.7%Prediabetes: 5.7 - 6.4%Diabetes: > 6.5% Lab Interpretation (test Abnormal code = 09827-5) [facility] [id number] 06:48:18 Test Item Value Reference Interpretation Comments Range TROPONIN I (test 0.082 ng/mL See_Comment H [Automated code = 3250121254) message] The system which generated this result [...] biotin. Lab Interpretation Abnormal (test code = 71005-6) [facility] [id number] 02:09:48 Test Item Value Reference Interpretation Comments Range TROPONIN I (test 0.067 ng/mL See_Comment H [Automated code = 6053439146) message] The system which generated this result [...] biotin. Lab Interpretation Abnormal (test code = 77087-1) [facility] HospitalN-TERMINAL [id number] 02:06:31 Test Item Value Reference Range Interpretation Comments NT-proBNP (test code 318 pg/mL See_Comment [Autom ated = 0697980540) message] The system which generated this result transmitted reference range : <=450. The reference range was not used to interpret this result as normal/abnormal . ALYSSA (test code = ALYSSA) Biotin has been reported to cause a negative bias, interpret results relative to patient's use of biotin. Lab Interpretation Normal (test code = 92494-1) [facility] HospitalCOM. METABOLIC PANEL (59341)2021-10-31 01:58:28 Test Item Value Reference Range Interpretation Comments NA (test code = 137 mmol/L 135-145 7353421145) K (test code = 4.1 mmol/L 3.5-5.0 6526627539) CL (test code = 101 mmol/L 98-108 1629077261) CO2 TOTAL (test code = 26 mmol/L 23-31 1953514001) AGAP (test code = 2-16 6426118286) BUN (test code = 46 mg/dL 7-23 H 8043593867) GLUCOSE (test code = 213 mg/dL 70-110 H 2214367572) CREATININE (test code = 1.96 mg/dL 0.60-1.25 H 8654331763) TOTAL BILI (test code = 0.9 mg/dL 0.1-1.9 0656668347) CALCIUM (test code = 9.7 mg/dL 8.6-10.6 2230932867) T PROTEIN (test code = 7.0 g/dL 6.3-8.2 9144294477) ALBUMIN (test code = 4.3 g/dL 3.5-5.0 5388164656) ALK PHOS (test code = 58 U/L 34-122 5536552634) ALTv (test code = 20 U/L 5-50 1742-6) AST(SGOT) (test code = 27 U/L 13-40 5004276989) eGFR (test code = mL/min/1.73m2 6605779716) ALYSSA (test code = ALYSSA) Association of [...] tests). Lab Interpretation Abnormal (test code = 30271-9) [facility] BranchLIP[facility], [id number] 01:57:48 Test Item Value Reference Range Interpretation Comments LIPASE (test code = 4119139986) 330 U/L 0-220 H Lab Interpretation (test code = Abnormal 79723-5) [facility]aPTT2021-[facility]-16 01:55:04 Test Item Value Reference Range Interpretation Comments APTT Patient (test See_Comment [Automat ed code = 3173-2) message] The system which generated this result transmitted reference range : 23 - 38 Seconds . The reference range was not used to interpr et this result as normal/abnormal . ALYSSA (test code = ALYSSA) The [facility] patient population mean normal value for aPTT is 30 seconds. Lab Interpretation Normal (test code = 45168-6) [facility] HospitalPROTHROMBIN TIME / [id number] 01:53:08 Test Item Value Reference Range Interpretation [...] tions. Lab Interpretation (test Normal code = 42302-9) [facility] HospitalCB WITH [id number] 01:45:44 Test Item Value Reference Range Interpretation Comments WBC (test code = See_Comment [Automated 2790-2) message] The sy stem which generated this [...] RDW-SD (test code = 39.1 fL 38.5-51.6 69661-3) RDW-CV (test code = 11.6 % 12.1-15.4 L 788-0) PLT (test code = See_Comment [Automated 777-3) message] The sy stem which generated this result transmitted reference range : 150 - 328 10*3/ ?L. The reference r corey was not used to interpret this result as normal/abnormal . MPV (test code = 10.4 fL 9.8-13.0 67042-4) NRBC/100 WBC (test See_Comment [Automat ed code = 8962908861) message] The system which generated this result transmitted reference range : 0.0 - 10.0 /100 WBCs. The refer ence range was not u sed to interpret th is result as normal/abnormal . NRBC x10^3 (test code <0.01 See_Comment [Auto mated = 4033264756) message] The s ystem which generated this result transmitted reference range : 10*3/?L. The reference range was not used to interpret this result as normal/abnormal . GRAN MAT (NEUT) % 62.1 % (test code = 770-8) IMM GRAN % (test code 0.30 % = 2484405178) LYMPH % (test code = 23.4 % 736-9) MONO % (test code = 10.8 % 5905-5) EOS % (test code = 2.9 % 713-8) BASO % (test code = 0.5 % 706-2) GRAN MAT x10^3(ANC) 4.14 10*3/uL 1.99-6.95 (test code = 7214229305) IMM GRAN x10^3 (test <0.03 0.00-0.06 code = 2160651702) LYMPH x10^3 (test code 1.56 10*3/uL 1.09-3.23 = 731-0) MONO x10^3 (test code 0.72 10*3/uL 0.36-1.02 = 742-7) EOS x10^3 (test code = 0.19 10*3/uL 0.06-0.53 711-2) BASO x10^3 (test code 0.03 10*3/uL 0.01-0.09 = 704-7) Lab Interpretation Abnormal (test code = 35808-2) [facility] HospitalURINALYSIS2021-06-10 21:15:48 Test Item Value Reference Range Interpretation Comments APPEARANCE (test code = Clear Clear 8667632496) COLOR (test code = Yellow Yellow 6786919020) PH (test code = 4.8-8.0 1843569708) SP GRAVITY (test code = 1.003-1.030 3107019884) GLU U QUAL (test code = 50 mg/dL Normal A 7037882584) BLOOD (test code = Negative Negative INTERFERE NCE FROM 0027865808) ASCORBIC ACID M AY CAUSE FALSE NEG ATIVE RESULT KETONES (test code = Negative Negative 2587086953) PROTEIN (test code = Negative Negative 2887-8) UROBILIN (test code = Normal Normal 0625057259) BILIRUBIN (test code = Negative Negative 0499104201) NITRITE (test code = Negative Negative 1394267096) LEUK JESS (test code = Negative Negative 4629004977) RBC/HPF (test code = See_Comment [Autom ated message] 0949029165) The system [employer] generated this result transmitted ref erence range: 0 - 3 HP F. The reference range was not used to int erpret this result as normal/abnormal . WBC/HPF (test code = See_Comment [Autom ated message] 5634558832) The system [employer] generated this result transmitted ref erence range: 0 - 5 HP F. The reference range was not used to int erpret this result as normal/abnormal . BACTERIA (test code = Negative Negative 3402848153) SQ EPITH (test code = <1 See_Comment [Auto mated message] 8055333474) The system [employer] generated this result transmitted ref erence range: <=2 HPF. The reference range was not used to int erpret this result as normal/abnormal . HYAL CAST (test code = See_Comment [Aut omated message] 5014296704) The system [employer] generated this result transmitted ref erence range: <=2 LPF. The reference range was not used to int erpret this result as normal/abnormal . Lab Interpretation (test Abnormal code = 65322-7) [facility] HospitalXR LUMBAR SPINE 2 [id number] 20:30:53 Impression: Postoperative changes. Degenerative changes. No [...] Atherosclerotic calcifications. [facility], Radiant Results Inft User - 04/25/2021 3:31 [...] signedby Benton Morales MD at 04/25/2021 3:30 [facility]Un[facility]woodXR HIPS 2 VW [id number] 20:24:52Impression: Postoperative changes. Degenerative changes. No acute [...] clinicalconcern MRI is available.End of Report.RL: 39[address] [facility]Bas[facility] [place] Metabolic Panel (NA, K, CL, CO2, GLUCOSE, BUN, CREATININE, CA)2020-05-24 14:15:00 Test Item Value Reference Range Interpretation Comments NA (test code = 139 mmol/L 135-145 5884502453) K (test code = 4.1 mmol/L 3.5-5 4506557050) CL (test code = 104 mmol/L 98-108 5711566644) CO2 TOTAL (test code = 26 mmol/L 23-31 5148753511) AGAP (test code = 2-16 5455822096) BUN (test code = 22 mg/dL 7-23 1573185502) GLUCOSE (test code = 203 mg/dL 70-110 H 9116804837) CREATININE (test code = 1.40 mg/dL 0.6-1.25 H 5440372361) CALCIUM (test code = 9.1 mg/dL 8.6-10.6 7258034489) eGFR Calculation mL/min/1.73m2 (Non-) (test code = 0504210142) eGFR Calculation mL/min/1.73m2 () (test code = 9946105168) ALYSSA (test code = ALYSSA) Association of [...] tests). Lab Interpretation Abnormal (test code = 58604-8) [facility] HospitalHepatic Function Panel (ALB, T.PRO, BILI T, BU/BC, ALT, AST, ALK PHOS)2020-05-24 13:54:00 Test Item Value Reference Range Interpretation Comments TOTAL BILI (test code = 8355490933) 0.9 mg/dL 0.1-1.1 BILI UNCON (test code = 7430096949) 1.0 mg/dL 0.1-1.1 BILI CONJ (test code = 8465250231) 0.0 mg/dL 0-0.3 T PROTEIN (test code = 9853830508) 7.0 g/dL 6.3-8.2 ALBUMIN (test code = 3338528557) 4.2 g/dL 3.5-5 ALK PHOS (test code = 4578352390) 49 U/L 34-122 ALTv (test code = 1742-6) 17 U/L 5-50 AST(SGOT) (test code = 8653270029) 25 U/L 13-40 Lab Interpretation (test code = Normal 02237-2) [facility] HospitalaPTT2020-07-09 13:32:00 Test Item Value Reference Range Interpretation Comments APTT Patient (test See_Comment [Automat ed code = 3173-2) message] The system which generated this result transmitted reference range : 23 - 38 Seconds . The reference range was not used to interpr et this result as normal/abnormal . ALYSSA (test code = ALYSSA) The [facility] patient population mean normal value for aPTT is 30 seconds. Lab Interpretation Normal (test code = 26270-3) [facility] HospitalProthrombin Time (PT) / [id number] 13:30:00 Test Item Value Reference Range Interpretation [...] tions. Lab Interpretation (test Normal code = 33660-9) [facility] HospitalCBC WITH [id number] 13:27:00 Test Item Value Reference Range Interpretation [...] RDW-SD (test code = 42.6 fL 38.5-51.6 30847-6) RDW-CV (test code = 12.3 % 12.1-15.4 788-0) PLT (test code = See_Comment [Automated 777-3) message] The sy stem which generated this result transmitted reference range : 150 - 328 10*3/ ?L. The reference r corey was not used to interpret this result as normal/abnormal . MPV (test code = 9.9 fL 9.8-13 07058-3) NRBC/100 WBC (test See_Comment [Automat ed code = 1622829476) message] The system which generated this result transmitted reference range : 0.0 - 10.0 /100 WBCs. The refer ence range was not u sed to interpret th is result as normal/abnormal . NRBC x10^3 (test code <0.01 See_Comment [Auto mated = 5068371213) message] The s ystem which generated this result transmitted reference range : 10*3/?L. The reference range was not used to interpret this result as normal/abnormal . GRAN MAT (NEUT) % 55.1 % (test code = 770-8) IMM GRAN % (test code 0.20 % = 8969617935) LYMPH % (test code = 28.8 % 736-9) MONO % (test code = 11.3 % 5905-5) EOS % (test code = 3.5 % 713-8) BASO % (test code = 1.1 % 706-2) GRAN MAT x10^3(ANC) 3.11 10*3/uL 1.99-6.95 (test code = 7834785856) IMM GRAN x10^3 (test <0.03 0-0.06 code = 1623853074) LYMPH x10^3 (test code 1.63 10*3/uL 1.09-3.23 = 731-0) MONO x10^3 (test code 0.64 10*3/uL 0.36-1.02 = 742-7) EOS x10^3 (test code = 0.20 10*3/uL 0.06-0.53 711-2) BASO x10^3 (test code 0.06 10*3/uL 0.01-0.09 = 704-7) Lab Interpretation Abnormal (test code = 56120-6) [facility]XR ANKLE 3+ VW [id number] 13:25:58HISTORY: ?Pain. FINDINGS: AP, lateral, oblique views [...] Interpretation Comments POCT GLU (test code = 2538031177) 173 mg/dL 70-110 H Lab Interpretation (test code = Abnormal 18644-5) [facility] GLUCOSE (AUTOMATED)2020-03-23 22:34:00 Test Item Value Reference Range Interpretation Comments POCT GLU (test code = 7120578097) 173 mg/dL 70-110 H Lab Interpretation (test code = Abnormal 15339-7) [facility] GLUCOSE (AUTOMATED)2020-03-23 18:12:00 Test Item Value Reference Range Interpretation Comments POCT GLU (test code = 165 mg/dL 70-110 H Notifi ed Provider [id number]) Lab Interpretation (test Abnormal code = 56257-1) [facility] GLUCOSE (AUTOMATED)2020-03-23 18:12:00 Test Item Value Reference Range Interpretation Comments POCT GLU (test code = 165 mg/dL 70-110 H Notifi ed Provider [id number]) Lab Interpretation (test Abnormal code = 77914-5) [facility] GLUCOSE (AUTOMATED)2020-03-23 15:04:00 Test Item Value Reference Range Interpretation Comments POCT GLU (test code = 114 mg/dL 70-110 H Notifi ed Provider [id number]) Lab Interpretation (test Abnormal code = 77962-3) [facility] GLUCOSE (AUTOMATED)2020-03-23 15:04:00 Test Item Value Reference Range Interpretation Comments POCT GLU (test code = 114 mg/dL 70-110 H Notifi ed Provider [id number]) Lab Interpretation (test Abnormal code = 39454-4) [facility] HospitalFERRITIN [id number] 13:23:00 Test Item Value Reference Range Interpretation Comments FERRITIN (test code = 139.0 ng/mL 18-464 1782354396) ALYSSA (test code = ALYSSA) Biotin has been reported to cause a negative bias, interpret results relative to patient's use of biotin. Lab Interpretation (test Normal code = 09419-8) [facility] HospitalFERRITIN [id number] 13:23:00 Test Item Value Reference Range Interpretation Comments FERRITIN (test code = 139.0 ng/mL 18-464 4994435464) ALYSSA (test code = ALYSSA) Biotin has been reported to cause a negative bias, interpret results relative to patient's use of biotin. Lab Interpretation (test Normal code = 79219-7) [facility] HospitalIRON [id number] 12:53:00 Test Item Value Reference Range Interpretation Comments IRON (test code = 1180362880) 87 ug/dL 50-160 TIBC (test code = 0514866608) 385 ug/dL 250-410 % FE SAT (test code = 1656854516) 23 % 20-50 Lab Interpretation (test code = Normal 06138-4) [facility] HospitalIRO [id number] 12:53:00 Test Item Value Reference Range Interpretation Comments IRON (test code = 6735119304) 87 ug/dL 50-160 TIBC (test code = 1882576378) 385 ug/dL 250-410 % FE SAT (test code = 7980581218) 23 % 20-50 Lab Interpretation (test code = Normal 10135-3) [facility]:07[facility]00 Test Item Value Reference Range Interpretation Comments APTT Patient (test code See_Comment [Au tomated message] = 3173-2) The system [employer] generated this result transmitted ref erence range: 26 - 36 Seconds. The reference range was not used to int erpret this result as normal/abnormal . Lab Interpretation (test Abnormal code = 12579-9) [facility] 12:07:00 Test Item Value Reference Range Interpretation Comments APTT Patient (test code See_Comment [Au tomated message] = 3173-2) The system [employer] generated this result transmitted ref erence range: 26 - 36 Seconds. The reference range was not used to int erpret this result as normal/abnormal . Lab Interpretation (test Abnormal code = 16191-5) [facility] [id number] 11:57:00 Test Item Value Reference Range Interpretation Comments TROPONIN I (test 0.046 ng/mL See_Comment H [Automated code = 4389503626) message] The system which generated this result [...] ? Lab Interpretation Abnormal (test code = 61661-1) [facility] HospitalTROPONIN [id number] 11:57:00 Test Item Value Reference Range Interpretation Comments TROPONIN I (test 0.046 ng/mL See_Comment H [Automated code = 2383795112) message] The system which generated this result [...] ? Lab Interpretation Abnormal (test code = 89516-3) [facility] HospitalBASI METABOLIC PANEL (NA, K, CL, CO2, GLUCOSE, BUN, CREATININE, CA)2020-03-23 11:52:00 Test Item Value Reference Range Interpretation Comments NA (test code = 137 mmol/L 135-145 5632411174) K (test code = 4.1 mmol/L 3.5-5 4326390011) CL (test code = 102 mmol/L 98-108 3238964151) CO2 TOTAL (test code = 26 mmol/L 23-31 1028383873) AGAP (test code = 2-16 4507940372) BUN (test code = 18 mg/dL 7-23 8289141684) GLUCOSE (test code = 119 mg/dL 70-110 H 8592323875) CREATININE (test code = 1.14 mg/dL 0.6-1.25 1329294369) CALCIUM (test code = 9.1 mg/dL 8.6-10.6 6187970203) eGFR Calculation mL/min/1.73m2 (Non-) (test code = 6347481319) eGFR Calculation mL/min/1.73m2 () (test code = 2713545477) ALYSSA (test code = ALYSSA) Association of [...] tests). Lab Interpretation Abnormal (test code = 14741-5) [facility] HospitalMAGNESIUM2020-05-08 11:52:00 Test Item Value Reference Range Interpretation Comments MAGNESIUM (test code = 6499234943) 2.2 mg/dL 1.7-2.4 Lab Interpretation (test code = Normal 16926-6) [facility] METABOLIC PANEL (NA, K, CL, CO2, GLUCOSE, BUN, CREATININE, CA)2020-03-23 11:52:00 Test Item Value Reference Range Interpretation Comments NA (test code = 137 mmol/L 135-145 9735370253) K (test code = 4.1 mmol/L 3.5-5 6369630353) CL (test code = 102 mmol/L 98-108 5193723355) CO2 TOTAL (test code = 26 mmol/L 23-31 2963519362) AGAP (test code = 2-16 3101426585) BUN (test code = 18 mg/dL 7-23 8686277410) GLUCOSE (test code = 119 mg/dL 70-110 H 1462579061) CREATININE (test code = 1.14 mg/dL 0.6-1.25 7910419738) CALCIUM (test code = 9.1 mg/dL 8.6-10.6 4174597820) eGFR Calculation mL/min/1.73m2 (Non-) (test code = 4258485788) eGFR Calculation mL/min/1.73m2 () (test code = 8736538182) ALYSSA (test code = ALYSSA) Association of [...] tests). Lab Interpretation Abnormal (test code = 74320-5) [facility]MAGN[facility]IUM2020-05-08 11:52:00 Test Item Value Reference Range Interpretation Comments MAGNESIUM (test code = 1371619409) 2.2 mg/dL 1.7-2.4 Lab Interpretation (test code = Normal 55434-4) [facility] HospitalProthrombin Time (PT) / [id number] 11:36:00 Test Item Value Reference Range Interpretation Comments PROTIME PATIENT (test See_Comment [Auto mated message] code = 5964-2) The system [facility] generated this result transmitted ref erence range: 10.1 - 1 2.6 Seconds. The re ference range was not u sed to interpret this result as normal/abnor mal. INR (test code = 6301-6) Nor mal INR <1.1; Warfarin Therap eutic range 2.0 to 3. 0 or 2.5 to 3.5, dep ending upon the indica tions. Lab Interpretation (test Normal code = 00944-5) [facility] HospitalProthrombin Time (PT) / [id number] 11:36:00 Test Item Value Reference Range Interpretation Comments PROTIME PATIENT (test See_Comment [Auto mated message] code = 5964-2) The system [facility] generated this result transmitted ref erence range: 10.1 - 1 2.6 Seconds. The re ference range was not u sed to interpret this result as normal/abnor mal. INR (test code = 6301-6) Nor mal INR <1.1; Warfarin Therap eutic range 2.0 to 3. 0 or 2.5 to 3.5, dep ending upon the indica tions. Lab Interpretation (test Normal code = 02404-4) [facility] [id number] 06:38:00 Test Item Value Reference Range Interpretation Comments TROPONIN I (test 0.045 ng/mL See_Comment H [Automated code = 8492907556) message] The system which generated this result [...] ? Lab Interpretation Abnormal (test code = 64535-1) [facility] [id number] 06:38:00 Test Item Value Reference Range Interpretation Comments TROPONIN I (test 0.045 ng/mL See_Comment H [Automated code = 7405449883) message] The system which generated this result [...] ? Lab Interpretation Abnormal (test code = 59364-5) [facility] (NA, K, CL, CO2, GLUCOSE, BUN, CREATININE, CA)2020-03-23 06:29:00 Test Item Value Reference Range Interpretation Comments NA (test code = 137 mmol/L 135-145 3838303354) K (test code = 3.6 mmol/L 3.5-5 6381414586) CL (test code = 101 mmol/L 98-108 5958756381) CO2 TOTAL (test code = 27 mmol/L 23-31 3767250348) AGAP (test code = 2-16 8304827381) BUN (test code = 19 mg/dL 7-23 8230123684) GLUCOSE (test code = 153 mg/dL 70-110 H 9890588018) CREATININE (test code = 1.22 mg/dL 0.6-1.25 8499439185) CALCIUM (test code = 8.9 mg/dL 8.6-10.6 7168198449) eGFR Calculation mL/min/1.73m2 (Non-) (test code = 8806922756) eGFR Calculation mL/min/1.73m2 () (test code = 6558831797) ALYSSA (test code = ALYSSA) Association of [...] tests). Lab Interpretation Abnormal (test code = 57737-0) [facility]MAG[facility]IUM2020-05-08 06:29:00 Test Item Value Reference Range Interpretation Comments MAGNESIUM (test code = 6847897208) 1.7 mg/dL 1.7-2.4 Lab Interpretation (test code = Normal 48062-5) [facility] HospitalLIPID PANEL (69456)(TOTAL CHOLESTEROL, TRIGLYCERIDES, HDL)2020-03-23 06:29:00 Test Item Value Reference Range Interpretation Comments CHOL (test code = 106 mg/dL 120-200 L 8641558995) HDL (test code = 46 mg/dL >40 3763807172) HDLC RATIO (test code = See_Comment [Au tomated message] 7682366132) The system [employer] generated this result transmit diamante reference range : <=5.0. The refe rence range was not u sed to interpret th is result as normal/abnormal . TRIG (test code = 74 mg/dL 30-170 7092028414) LDL CHOL (test code = 45 mg/dL See_Comment [Auto mated message] 50335-2) The system [employer] generated this result transmit diamante reference range : <=160. The refe rence range was not u sed to interpret th is result as normal/abnormal . VLDL (test code = 15 mg/dL 5-60 3172659939) Lab Interpretation (test Abnormal code = 10970-4) [facility] METABOLIC PANEL (NA, K, CL, CO2, GLUCOSE, BUN, CREATININE, CA)2020-03-23 06:29:00 Test Item Value Reference Range Interpretation Comments NA (test code = 137 mmol/L 135-145 2957675359) K (test code = 3.6 mmol/L 3.5-5 5737671372) CL (test code = 101 mmol/L 98-108 4927296066) CO2 TOTAL (test code = 27 mmol/L 23-31 6669228815) AGAP (test code = 2-16 6205896811) BUN (test code = 19 mg/dL 7-23 6329762940) GLUCOSE (test code = 153 mg/dL 70-110 H 0276441146) CREATININE (test code = 1.22 mg/dL 0.6-1.25 5532384388) CALCIUM (test code = 8.9 mg/dL 8.6-10.6 0770595482) eGFR Calculation mL/min/1.73m2 (Non-) (test code = 0427188523) eGFR Calculation mL/min/1.73m2 () (test code = 2176174723) ALYSSA (test code = ALYSAS) Association of Glomerular Filtration Rate (GFR) and [...] tests). Lab Interpretation Abnormal (test code = 29115-2) [facility]MAG[facility]UM2020-05-08 06:29:00 Test Item Value Reference Range Interpretation Comments MAGNESIUM (test code = 3441305630) 1.7 mg/dL 1.7-2.4 Lab Interpretation (test code = Normal 15782-4) [facility] HospitalLIPID PANEL (35649)(TOTAL CHOLESTEROL, TRIGLYCERIDES, HDL)2020-03-23 06:29:00 Test Item Value Reference Range Interpretation Comments CHOL (test code = 106 mg/dL 120-200 L 1003423475) HDL (test code = 46 mg/dL >40 1201959517) HDLC RATIO (test code = See_Comment [Au tomated message] 8946338653) The system [employer] generated this result transmit diamante reference range : <=5.0. The refe rence range was not u sed to interpret th is result as normal/abnormal . TRIG (test code = 74 mg/dL 30-170 5599393151) LDL CHOL (test code = 45 mg/dL See_Comment [Auto mated message] 34679-3) The system [employer] generated this result transmit diamante reference range : <=160. The refe rence range was not u sed to interpret th is result as normal/abnormal . VLDL (test code = 15 mg/dL 5-60 8949559371) Lab Interpretation (test Abnormal code = 38522-6) [facility]aPTT2020-[facility] 03:18:00 Test Item Value Reference Range Interpretation Comments APTT Patient (test code = See_Comment [ Automated message] 3173-2) The system [employer] generated this result transmitted ref erence range: 26 - 36 Seconds. The re ference range was not u sed to interpret this result as normal/abnor mal. Lab Interpretation (test Normal code = 34100-0) [facility]aPTT2020-05-08 03:18:00 Test Item Value Reference Range Interpretation Comments APTT Patient (test code = See_Comment [ Automated message] 3173-2) The system [employer] generated this result transmitted ref erence range: 26 - 36 Seconds. The re ference range was not u sed to interpret this result as normal/abnor mal. Lab Interpretation (test Normal code = 69253-4) [facility] HospitalPROTHROMBIN TIME / [id number] 03:07:00 Test Item Value Reference Range Interpretation Comments PROTIME PATIENT (test See_Comment [Auto mated message] code = 5964-2) The system [facility] generated this result transmitted ref erence range: 10.1 - 1 2.6 Seconds. The re ference range was not u sed to interpret this result as normal/abnor mal. INR (test code = 6301-6) Nor mal INR <1.1; Warfarin Therap eutic range 2.0 to 3. 0 or 2.5 to 3.5, dep ending upon the indica tions. Lab Interpretation (test Normal code = 45663-1) [facility] / [id number] 03:07:00 Test Item Value Reference Range Interpretation Comments PROTIME PATIENT (test See_Comment [Auto mated message] code = 5964-2) The system [facility] generated this result transmitted ref erence range: 10.1 - 1 2.6 Seconds. The re ference range was not u sed to interpret this result as normal/abnor mal. INR (test code = 6301-6) Nor mal INR <1.1; Warfarin Therap eutic range 2.0 to 3. 0 or 2.5 to 3.5, dep ending upon the indica tions. Lab Interpretation (test Normal code = 86265-0) [facility] [id number] 02:23:32 No acute cardiopulmonary process. Preliminary Report [...] reviewed this study and agree with the abovereport.[facility] VW 2020-03-23 02:23:32 No [...] this study and agree with the abovereport. [facility]COR[facility] COVID-19 [id number] 01:23:00 Test Item Value Reference Range Interpretation Comments SARS-CoV-2 (test code = Not Detected Not Detected 71059-2) ALYSSA (test code = ALYSSA) ID NOW COVID-19 Assay is an isothermal nucleic acid amplification test intended for the qualitative detection of nucleic acid from SARS-CoV-2 viral RNA in nasopharyngeal (MAIL ROOM) specimens. It is used under Emergency Use [...] indicated. Lab Interpretation Normal (test code = 56016-1) [facility] [id number] 01:23:00 Test Item Value Reference Range Interpretation Comments SARS-CoV-2 (test code = Not Detected Not Detected 49108-6) ALYSSA (test code = ALYSSA) ID NOW COVID-19 Assay is an isothermal nucleic acid amplification test intended for the qualitative detection of nucleic acid from SARS-CoV-2 viral RNA in nasopharyngeal (MAIL ROOM) specimens. It is used under Emergency Use [...] indicated. Lab Interpretation Normal (test code = 79419-0) [facility] [id number] 00:12:00 Test Item Value Reference Range Interpretation Comments NT-proBNP (test code 585 pg/mL See_Comment H [Autom ated = 0208935523) message] The system which generated this result transmitted reference range : <=450. The reference range was not used to interpret this result as normal/abnormal . ALYSSA (test code = ALYSSA) Biotin has been reported to cause a negative bias, interpret results relative to patient's use of biotin. Lab Interpretation Abnormal (test code = 61844-2) [facility] [id number] 00:12:00 Test Item Value Reference Range Interpretation Comments TROPONIN I (test 0.030 ng/mL See_Comment [Automated code = 5815907686) message] The system which generated this result [...] ? Lab Interpretation Normal (test code = 42116-6) [facility] [id number] 00:12:00 Test Item Value Reference Range Interpretation Comments NT-proBNP (test code 585 pg/mL See_Comment H [Autom ated = 9849688682) message] The system which generated this result transmitted reference range : <=450. The reference range was not used to interpret this result as normal/abnormal . ALYSSA (test code = ALYSSA) Biotin has been reported to cause a negative bias, interpret results relative to patient's use of biotin. Lab Interpretation Abnormal (test code = 38548-5) [facility] [id number] 00:12:00 Test Item Value Reference Range Interpretation Comments TROPONIN I (test 0.030 ng/mL See_Comment [Automated code = 3606526578) message] The system which generated this result [...] ? Lab Interpretation Normal (test code = 74630-3) [facility]. METABOLIC PANEL (49083)2020-03-23 00:03:00 Test Item Value Reference Range Interpretation Comments NA (test code = 138 mmol/L 135-145 4334739007) K (test code = 4.1 mmol/L 3.5-5 5961443212) CL (test code = 103 mmol/L 98-108 8868290526) CO2 TOTAL (test code = 26 mmol/L 23-31 1844536215) AGAP (test code = 2-16 1820343159) BUN (test code = 18 mg/dL 7-23 9795393089) GLUCOSE (test code = 157 mg/dL 70-110 H 9133824899) CREATININE (test code = 1.19 mg/dL 0.6-1.25 1781315753) TOTAL BILI (test code = 1.1 mg/dL 0.1-1.0 5049669596) CALCIUM (test code = 9.2 mg/dL 8.6-10.6 6876314827) T PROTEIN (test code = 6.8 g/dL 6.3-8.2 4551586746) ALBUMIN (test code = 4.0 g/dL 3.5-5 7459278408) ALK PHOS (test code = 51 U/L 34-122 8263694533) ALTv (test code = 16 U/L 5-50 1742-6) AST(SGOT) (test code = 23 U/L 13-40 4110200974) eGFR Calculation mL/min/1.73m2 (Non-) (test code = 3909604155) eGFR Calculation mL/min/1.73m2 () (test code = 0689817013) ALYSSA (test code = ALYSSA) Association of [...] tests). Lab Interpretation Abnormal (test code = 06744-4) [facility]. METABOLIC PANEL (12316)2020-03-23 00:03:00 Test Item Value Reference Range Interpretation Comments NA (test code = 138 mmol/L 135-145 6236570876) K (test code = 4.1 mmol/L 3.5-5 1891264939) CL (test code = 103 mmol/L 98-108 1532441683) CO2 TOTAL (test code = 26 mmol/L 23-31 3687246585) AGAP (test code = 2-16 9534470913) BUN (test code = 18 mg/dL 7-23 2579320165) GLUCOSE (test code = 157 mg/dL 70-110 H 9272761420) CREATININE (test code = 1.19 mg/dL 0.6-1.25 8164942206) TOTAL BILI (test code = 1.1 mg/dL 0.1-1.6 9222702819) CALCIUM (test code = 9.2 mg/dL 8.6-10.6 4004899941) T PROTEIN (test code = 6.8 g/dL 6.3-8.2 3686682652) ALBUMIN (test code = 4.0 g/dL 3.5-5 2814608704) ALK PHOS (test code = 51 U/L 34-122 8376318562) ALTv (test code = 16 U/L 5-50 1742-6) AST(SGOT) (test code = 23 U/L 13-40 9085856543) eGFR Calculation mL/min/1.73m2 (Non-) (test code = 2476989446) eGFR Calculation mL/min/1.73m2 () (test code = 9308304729) ALYSSA (test code = ALYSSA) Association of [...] tests). Lab Interpretation Abnormal (test code = 91858-1) [facility] WITH [id number] 23:57:00 Test Item Value Reference Range Interpretation Comments WBC (test code = See_Comment [Automated 3178-2) message] The sy stem which generated this result transmitted reference range : 4.20 - 10.70 10*3/?L. The reference range was not used to interpret this result as normal/abnormal . RBC (test code = See_Comment L [Automated 901-8) message] The sy stem which generated this [...] RDW-SD (test code = 49.6 fL 38.5-51.6 36691-9) RDW-CV (test code = 14.6 % 12.1-15.4 788-0) PLT (test code = See_Comment L [Automated 777-3) message] The sy stem which generated this result transmitted reference range : 150 - 328 10*3/ ?L. The reference r corey was not used to interpret this result as normal/abnormal . MPV (test code = 9.9 fL 9.8-13 09322-0) NRBC/100 WBC (test See_Comment [Automat ed code = 0332822187) message] The system which generated this result transmitted reference range : 0.0 - 10.0 /100 WBCs. The refer ence range was not u sed to interpret th is result as normal/abnormal . NRBC x10^3 (test code <0.01 See_Comment [Auto mated = 3882103549) message] The s ystem which generated this result transmitted reference range : 10*3/?L. The reference range was not used to interpret this result as normal/abnormal . GRAN MAT (NEUT) % 55.3 % (test code = 770-8) IMM GRAN % (test code 0.20 % = 2276525831) LYMPH % (test code = 28.3 % 736-9) MONO % (test code = 12.6 % 5905-5) EOS % (test code = 3.1 % 713-8) BASO % (test code = 0.5 % 706-2) GRAN MAT x10^3(ANC) 3.20 10*3/uL 1.99-6.95 (test code = 0092866426) IMM GRAN x10^3 (test <0.03 0-0.06 code = 7946778845) LYMPH x10^3 (test code 1.64 10*3/uL 1.09-3.23 = 731-0) MONO x10^3 (test code 0.73 10*3/uL 0.36-1.02 = 742-7) EOS x10^3 (test code = 0.18 10*3/uL 0.06-0.53 711-2) BASO x10^3 (test code 0.03 10*3/uL 0.01-0.09 = 704-7) Lab Interpretation Abnormal (test code = 33207-9) [facility] WITH [id number] 23:57:00 Test Item Value Reference Range Interpretation [...] RDW-SD (test code = 49.6 fL 38.5-51.6 25440-2) RDW-CV (test code = 14.6 % 12.1-15.4 788-0) PLT (test code = See_Comment L [Automated 777-3) message] The sy stem which generated this result transmitted reference range : 150 - 328 10*3/ ?L. The reference r corey was not used to interpret this result as normal/abnormal . MPV (test code = 9.9 fL 9.8-13 25020-4) NRBC/100 WBC (test See_Comment [Automat ed code = 6983050803) message] The system which generated this result transmitted reference range : 0.0 - 10.0 /100 WBCs. The refer ence range was not u sed to interpret th is result as normal/abnormal . NRBC x10^3 (test code <0.01 See_Comment [Auto mated = 4059542621) message] The s ystem which generated this result transmitted reference range : 10*3/?L. The reference range was not used to interpret this result as normal/abnormal . GRAN MAT (NEUT) % 55.3 % (test code = 770-8) IMM GRAN % (test code 0.20 % = 0945173388) LYMPH % (test code = 28.3 % 736-9) MONO % (test code = 12.6 % 5905-5) EOS % (test code = 3.1 % 713-8) BASO % (test code = 0.5 % 706-2) GRAN MAT x10^3(ANC) 3.20 10*3/uL 1.99-6.95 (test code = 8990292578) IMM GRAN x10^3 (test <0.03 0-0.06 code = 4660124223) LYMPH x10^3 (test code 1.64 10*3/uL 1.09-3.23 = 731-0) MONO x10^3 (test code 0.73 10*3/uL 0.36-1.02 = 742-7) EOS x10^3 (test code = 0.18 10*3/uL 0.06-0.53 711-2) BASO x10^3 (test code 0.03 10*3/uL 0.01-0.09 = 704-7) Lab Interpretation Abnormal (test code = 84569-0) [facility] [id number] 21:48:00 Test Item Value Reference Range Interpretation Comments SARS-CoV-2 (test code = Not Detected Not Detected 80998-9) ALYSSA (test code = ALYSSA) ID NOW COVID-19 Assay is an isothermal nucleic acid amplification test intended for the qualitative detection of nucleic acid from SARS-CoV-2 viral RNA in nasopharyngeal (MAIL ROOM) specimens. It is used under Emergency Use [...] indicated. Lab Interpretation Normal (test code = 54133-9) [facility]Troponin [id number] 21:44:00 Test Item Value Reference Range Interpretation Comments TROPONIN I (test 0.027 ng/mL See_Comment [Automated code = 9905029994) message] The system which generated this result [...] ? Lab Interpretation Normal (test code = 75226-1) [facility] HospitalProthrombin Time (PT) / [id number] 21:41:00 Test Item Value Reference Range Interpretation Comments PROTIME PATIENT (test See_Comment [Auto mated message] code = 5964-2) The system [employer] generated this result transmitted ref erence range: 12.0 - 1 4.7 Seconds. The re ference range was not u sed to interpret this result as normal/abnor mal. INR (test code = 6301-6) Nor mal INR <1.1; Warfarin Therap eutic range 2.0 to 3. 0 or 2.5 to 3.5, dep ending upon the indica tions. Lab Interpretation (test Normal code = 34496-4) [facility] [id number] 21:39:00 Test Item Value Reference Range Interpretation Comments NT-proBNP (test code 663 pg/mL See_Comment H [Autom ated = 7840908804) message] The system which generated this result transmitted reference range : <=450. The reference range was not used to interpret this result as normal/abnormal . ALYSSA (test code = ALYSSA) Biotin has been reported to cause a negative bias, interpret results relative to patient's use of biotin. Lab Interpretation Abnormal (test code = 87374-4) [facility]COMP. METABOLIC PANEL (84133)2020-03-21 21:37:00 Test Item Value Reference Range Interpretation Comments NA (test code = 139 mmol/L 135-145 9488167565) K (test code = 4.1 mmol/L 3.5-5 8301709878) CL (test code = 102 mmol/L 98-108 8989924082) CO2 TOTAL (test code = 29 mmol/L 23-31 0502138788) AGAP (test code = 2-16 0220755481) BUN (test code = 18 mg/dL 7-23 5890896651) GLUCOSE (test code = 277 mg/dL 70-110 H 0238979135) CREATININE (test code = 1.23 mg/dL 0.6-1.25 2014989052) TOTAL BILI (test code = 1.3 mg/dL 0.1-1.1 H 6121369305) CALCIUM (test code = 9.8 mg/dL 8.6-10.6 3994381922) T PROTEIN (test code = 7.0 g/dL 6.3-8.2 3269899301) ALBUMIN (test code = 4.2 g/dL 3.5-5 3710951719) ALK PHOS (test code = 50 U/L 34-122 8810899691) ALTv (test code = 15 U/L 5-50 1742-6) AST(SGOT) (test code = 22 U/L 13-40 2018729838) eGFR Calculation mL/min/1.73m2 (Non-) (test code = 0285620131) eGFR Calculation mL/min/1.73m2 () (test code = 9381107521) ALYSSA (test code = ALYSSA) Association of [...] tests). Lab Interpretation Abnormal (test code = 74243-1) [facility] HospitalLipase [id number] 21:37:00 Test Item Value Reference Range Interpretation Comments LIPASE (test code = 0826520733) 161 U/L 0-220 Lab Interpretation (test code = Normal 99659-0) [facility] 1 [id number] 20:46:31HISTORY: Chest pain. TECHNIQUE: Portable AP view [...] canal noted.Mild thoracolumbar scoliosis noted.CONCLUSIONS: Mild cardiomegaly. [facility] HospitalLandic Acid Whole [id number] 20:43:00 Test Item Value Reference Range Interpretation Comments LACTIC ACID (test code = 1.91 mmol/L 0.3-2.6 7692508354) [facility] GLUCOSE (AUTOMATED)2020-03-07 20:58:00 Test Item Value Reference Range Interpretation Comments POCT GLU (test code = 9699097625) 216 mg/dL 70-110 H Lab Interpretation (test code = Abnormal 81961-6) [facility] GLUCOSE (AUTOMATED)2020-03-07 16:00:00 Test Item Value Reference Range Interpretation Comments POCT GLU (test code = 5732163765) 168 mg/dL 70-110 H Lab Interpretation (test code = Abnormal 90089-7) [facility] GLUCOSE (AUTOMATED)2020-03-07 13:07:00 Test Item Value Reference Range Interpretation Comments POCT GLU (test code = 5747337471) 148 mg/dL 70-110 H Lab Interpretation (test code = Abnormal 43140-7) [facility] HospitalTROPONIN [id number] 11:27:00 Test Item Value Reference Range Interpretation Comments TROPONIN I (test 0.051 ng/mL See_Comment H [Automated code = 8179578041) message] The system which generated this result [...] ? Lab Interpretation Abnormal (test code = 03169-6) [facility]MINAL [id number] 11:24:00 Test Item Value Reference Range Interpretation Comments NT-proBNP (test code 336 pg/mL See_Comment [Autom ated = 8987447477) message] The system which generated this result transmitted reference range : <=450. The reference range was not used to interpret this result as normal/abnormal . ALYSSA (test code = ALYSSA) Biotin has been reported to cause a negative bias, interpret results relative to patient's use of biotin. Lab Interpretation Normal (test code = 37706-0) [facility] HospitalBasi Metabolic Panel (NA, K, CL, CO2, GLUCOSE, BUN, CREATININE, CA)2020-03-07 11:14:00 Test Item Value Reference Range Interpretation Comments NA (test code = 138 mmol/L 135-145 1171187325) K (test code = 3.8 mmol/L 3.5-5 6761391780) CL (test code = 97 mmol/L 98-108 L 8609259120) CO2 TOTAL (test code = 30 mmol/L 23-31 6697420351) AGAP (test code = 2-16 4259444504) BUN (test code = 36 mg/dL 7-23 H 5942833204) GLUCOSE (test code = 140 mg/dL 70-110 H 9567810102) CREATININE (test code = 1.50 mg/dL 0.6-1.25 H 7930291830) CALCIUM (test code = 10.0 mg/dL 8.6-10.6 2995943681) eGFR Calculation mL/min/1.73m2 (Non-) (test code = 1031222002) eGFR Calculation mL/min/1.73m2 () (test code = 4882535763) ALYSSA (test code = ALYSSA) Association of [...] tests). Lab Interpretation Abnormal (test code = 89779-8) [facility] HospitalURIC [id number] 11:14:00 Test Item Value Reference Range Interpretation Comments URIC ACID (test code = 8524985259) 5.4 mg/dL 3.6-8 Lab Interpretation (test code = Normal 70193-1) [facility]CB WITH [id number] 10:53:00 Test Item Value Reference Range Interpretation [...] RDW-SD (test code = 45.1 fL 38.5-51.6 72190-4) RDW-CV (test code = 14.2 % 12.1-15.4 788-0) PLT (test code = See_Comment [Automated 777-3) message] The sy stem which generated this result transmitted reference range : 150 - 328 10*3/ ?L. The reference r corey was not used to interpret this result as normal/abnormal . MPV (test code = 9.8 fL 9.8-13 13631-5) NRBC/100 WBC (test See_Comment [Automat ed code = 0533515976) message] The system which generated this result transmitted reference range : 0.0 - 10.0 /100 WBCs. The refer ence range was not u sed to interpret th is result as normal/abnormal . NRBC x10^3 (test code <0.01 See_Comment [Auto mated = 0928989099) message] The s ystem which generated this result transmitted reference range : 10*3/?L. The reference range was not used to interpret this result as normal/abnormal . GRAN MAT (NEUT) % 51.0 % (test code = 770-8) IMM GRAN % (test code 0.50 % = 0467232485) LYMPH % (test code = 32.0 % 736-9) MONO % (test code = 11.3 % 5905-5) EOS % (test code = 4.3 % 713-8) BASO % (test code = 0.9 % 706-2) GRAN MAT x10^3(ANC) 2.85 10*3/uL 1.99-6.95 (test code = 3616770207) IMM GRAN x10^3 (test 0.03 10*3/uL 0-0.06 code = 5386584284) LYMPH x10^3 (test code 1.79 10*3/uL 1.09-3.23 = 731-0) MONO x10^3 (test code 0.63 10*3/uL 0.36-1.02 = 742-7) EOS x10^3 (test code = 0.24 10*3/uL 0.06-0.53 711-2) BASO x10^3 (test code 0.05 10*3/uL 0.01-0.09 = 704-7) Lab Interpretation Abnormal (test code = 75224-4) [facility] GLUCOSE (AUTOMATED)2020-03-06 22:46:00 Test Item Value Reference Range Interpretation Comments POCT GLU (test code = 9350058808) 209 mg/dL 70-110 H Lab Interpretation (test code = Abnormal 54010-7) [facility] GLUCOSE (AUTOMATED)2020-03-06 16:23:00 Test Item Value Reference Range Interpretation Comments POCT GLU (test code = 3980772625) 254 mg/dL 70-110 H Lab Interpretation (test code = Abnormal 78223-9) [facility] GLUCOSE (AUTOMATED)2020-03-06 12:51:00 Test Item Value Reference Range Interpretation Comments POCT GLU (test code = 8897317092) 126 mg/dL 70-110 H Lab Interpretation (test code = Abnormal 50671-1) [facility]TROP[facility]IN [id number] 10:16:00 Test Item Value Reference Range Interpretation Comments TROPONIN I (test 0.056 ng/mL See_Comment H [Automated code = 6460748679) message] The system which generated this result [...] ? Lab Interpretation Abnormal (test code = 92879-1) [facility] [facility] (NA, K, CL, CO2, GLUCOSE, BUN, CREATININE, CA)2020-03-06 10:13:00 Test Item Value Reference Range Interpretation Comments NA (test code = 136 mmol/L 135-145 3578192481) K (test code = 4.1 mmol/L 3.5-5 5612011456) CL (test code = 95 mmol/L 98-108 L 9273555933) CO2 TOTAL (test code = 30 mmol/L 23-31 2256626114) AGAP (test code = 2-16 8842495595) BUN (test code = 35 mg/dL 7-23 H 1365009488) GLUCOSE (test code = 174 mg/dL 70-110 H 9849972260) CREATININE (test code = 1.67 mg/dL 0.6-1.25 H 1510950740) CALCIUM (test code = 9.7 mg/dL 8.6-10.6 7271573127) eGFR Calculation mL/min/1.73m2 (Non-) (test code = 4435469878) eGFR Calculation mL/min/1.73m2 () (test code = 4332275930) ALYSSA (test code = ALYSSA) Association of [...] tests). Lab Interpretation Abnormal (test code = 58755-6) [facility] WITH [id number] 09:16:00 Test Item Value Reference Range Interpretation Comments WBC (test code = See_Comment [Automated 4471-2) message] The sy stem which generated this result transmitted reference range : 4.20 - 10.70 10*3/?L. The reference range was not used to interpret this result as normal/abnormal . RBC (test code = See_Comment L [Automated 058-8) message] The sy stem which generated this [...] RDW-SD (test code = 45.6 fL 38.5-51.6 50329-1) RDW-CV (test code = 14.3 % 12.1-15.4 788-0) PLT (test code = See_Comment [Automated 777-3) message] The sy stem which generated this result transmitted reference range : 150 - 328 10*3/ ?L. The reference r corey was not used to interpret this result as normal/abnormal . MPV (test code = 9.8 fL 9.8-13 61427-2) NRBC/100 WBC (test See_Comment [Automat ed code = 4939207564) message] The system which generated this result transmitted reference range : 0.0 - 10.0 /100 WBCs. The refer ence range was not u sed to interpret th is result as normal/abnormal . NRBC x10^3 (test code <0.01 See_Comment [Auto mated = 6773917526) message] The s ystem which generated this result transmitted reference range : 10*3/?L. The reference range was not used to interpret this result as normal/abnormal . GRAN MAT (NEUT) % 56.1 % (test code = 770-8) IMM GRAN % (test code 0.10 % = 9260513115) LYMPH % (test code = 29.7 % 736-9) MONO % (test code = 9.6 % 5905-5) EOS % (test code = 3.8 % 713-8) BASO % (test code = 0.7 % 706-2) GRAN MAT x10^3(ANC) 3.79 10*3/uL 1.99-6.95 (test code = 6973019951) IMM GRAN x10^3 (test <0.03 0-0.06 code = 8944470028) LYMPH x10^3 (test code 2.01 10*3/uL 1.09-3.23 = 731-0) MONO x10^3 (test code 0.65 10*3/uL 0.36-1.02 = 742-7) EOS x10^3 (test code = 0.26 10*3/uL 0.06-0.53 711-2) BASO x10^3 (test code 0.05 10*3/uL 0.01-0.09 = 704-7) Lab Interpretation Abnormal (test code = 27016-5) [facility] GLUCOSE (AUTOMATED)2020-03-06 01:25:00 Test Item Value Reference Range Interpretation Comments POCT GLU (test code = 3446419485) 208 mg/dL 70-110 H Lab Interpretation (test code = Abnormal 20622-2) [facility] [id number] 00:08:00 Test Item Value Reference Range Interpretation Comments TROPONIN I (test 0.047 ng/mL See_Comment H [Automated code = 0163565648) message] The system which generated this result [...] ? Lab Interpretation Abnormal (test code = 10029-1) [facility] GLUCOSE (AUTOMATED)2020-03-05 21:19:00 Test Item Value Reference Range Interpretation Comments POCT GLU (test code = 4828983702) 234 mg/dL 70-110 H Lab Interpretation (test code = Abnormal 69030-7) [facility] GLUCOSE (AUTOMATED)2020-03-05 16:55:00 Test Item Value Reference Range Interpretation Comments POCT GLU (test code = 8348388992) 258 mg/dL 70-110 H Lab Interpretation (test code = Abnormal 81457-1) [facility] GLUCOSE (AUTOMATED)2020-03-05 12:59:00 Test Item Value Reference Range Interpretation Comments POCT GLU (test code = 3096557517) 194 mg/dL 70-110 H Lab Interpretation (test code = Abnormal 19128-0) [facility] [id number] 10:54:00 Test Item Value Reference Range Interpretation Comments TROPONIN I (test 0.071 ng/mL See_Comment H [Automated code = 2368845047) message] The system which generated this result [...] ? Lab Interpretation Abnormal (test code = 86982-6) [facility] (NA, K, CL, CO2, GLUCOSE, BUN, CREATININE, CA)2020-03-05 10:43:00 Test Item Value Reference Range Interpretation Comments NA (test code = 139 mmol/L 135-145 0643523099) K (test code = 4.1 mmol/L 3.5-5 7681859531) CL (test code = 101 mmol/L 98-108 4279946441) CO2 TOTAL (test code = 27 mmol/L 23-31 7364132827) AGAP (test code = 2-16 8557840631) BUN (test code = 25 mg/dL 7-23 H 2452983367) GLUCOSE (test code = 243 mg/dL 70-110 H 0758275695) CREATININE (test code = 1.22 mg/dL 0.6-1.25 5801599100) CALCIUM (test code = 9.8 mg/dL 8.6-10.6 6690131613) eGFR Calculation mL/min/1.73m2 (Non-) (test code = 7614441301) eGFR Calculation mL/min/1.73m2 () (test code = 2888111486) ALYSSA (test code = ALYSSA) Association of [...] tests). Lab Interpretation Abnormal (test code = 32400-0) [facility] WITH [id number] 10:23:00 Test Item Value Reference Range Interpretation Comments WBC (test code = See_Comment [Automated message] 6690-2) The system [employer] generated this result transmitted ref erence range: 4.20 - 1 0.70 10*3/?L. The re ference range was not u sed to interpret this result as normal/abnor mal. RBC (test code = See_Comment [Automated message] 789-8) The system [employer] generated this result transmitted ref erence range: [...] RDW-SD (test code 47.8 fL 38.5-51.6 = 28764-3) RDW-CV (test code 14.4 % 12.1-15.4 = 788-0) PLT (test code = See_Comment [Automated message] 327-3) The system [employer] generated this result transmitted ref erence range: 150 - 32 8 10*3/?L. The re ference range was not u sed to interpret this result as normal/abnor mal. MPV (test code = 9.8 fL 9.8-13 05092-3) NRBC/100 WBC (test See_Comment [Automat ed message] code = 6027184135) The [employer] which generated this result transmitted ref erence range: 0.0 - 10 .0 /100 WBCs. The refer ence range was not u sed to interpret this result as normal/abnor mal. NRBC x10^3 (test <0.01 See_Comment [Automated message] code = 4745623707) The syste m which generated this result transmitted ref erence range: 10*3/?L. The reference range was not used to interpr et this result as normal/abnormal . GRAN MAT (NEUT) % 48.8 % (test code = 770-8) IMM GRAN % (test 0.20 % code = 0227600399) LYMPH % (test code 34.7 % = 736-9) MONO % (test code 10.8 % = 5905-5) EOS % (test code = 4.9 % 713-8) BASO % (test code 0.6 % = 706-2) GRAN MAT 2.49 10*3/uL 1.99-6.95 x10^3(ANC) (test code = 0711434492) IMM GRAN x10^3 <0.03 0-0.06 (test code = 3866999392) LYMPH x10^3 (test 1.77 10*3/uL 1.09-3.23 code = 731-0) MONO x10^3 (test 0.55 10*3/uL 0.36-1.02 code = 742-7) EOS x10^3 (test 0.25 10*3/uL 0.06-0.53 code = 711-2) BASO x10^3 (test 0.03 10*3/uL 0.01-0.09 code = 704-7) [facility] [id number] 03:06:08 No acute cardiopulmonary process. Unchanged enlargement [...] silhouette. Pre liminary Report Dictated by Resident: Artemio Stratton, Lauro Aguilar MD., have reviewed this study and agree with the abovereport.[facility] HospitalCORONAVIRUS COVID-19 [id number] 00:34:00 Test Item Value Reference Range Interpretation Comments SARS-CoV-2 (test code = Not Detected Not Detected 93372-0) ALYSSA (test code = ALYSSA) ID NOW COVID-19 Assay is an isothermal nucleic acid amplification test intended for the qualitative detection of nucleic acid from SARS-CoV-2 viral RNA in nasopharyngeal (MAIL ROOM) specimens. It is used under Emergency Use [...] indicated. Lab Interpretation Normal (test code = 24234-8) [facility] HospitalTroponin [id number] 00:08:00 Test Item Value Reference Range Interpretation Comments TROPONIN I (test 0.056 ng/mL See_Comment H [Automated code = 3697459501) message] The system which generated this result [...] ? Lab Interpretation Abnormal (test code = 90457-9) [facility]N-TERMINAL [id number] 00:04:00 Test Item Value Reference Range Interpretation Comments NT-proBNP (test code 562 pg/mL See_Comment H [Autom ated = 8153558254) message] The system which generated this result transmitted reference range : <=450. The reference range was not used to interpret this result as normal/abnormal . ALYSSA (test code = ALYSSA) Biotin has been reported to cause a negative bias, interpret results relative to patient's use of biotin. Lab Interpretation Abnormal (test code = 86439-9) [facility] HospitalProthrombin Time (PT) / [id number] 23:57:00 Test Item Value Reference Range Interpretation [...] tions. Lab Interpretation (test Normal code = 43484-7) [facility] HospitalBas[facility] Metabolic Panel (NA, K, CL, CO2, GLUCOSE, BUN, CREATININE, CA)2020-03-04 23:56:00 Test Item Value Reference Range Interpretation Comments NA (test code = 139 mmol/L 135-145 3195483589) K (test code = 4.1 mmol/L 3.5-5 7119174539) CL (test code = 102 mmol/L 98-108 3173321272) CO2 TOTAL (test code = 29 mmol/L 23-31 5921209634) AGAP (test code = 2-16 1811216933) BUN (test code = 23 mg/dL 7-23 0333531605) GLUCOSE (test code = 193 mg/dL 70-110 H 2089494982) CREATININE (test code = 1.25 mg/dL 0.6-1.25 2943680661) CALCIUM (test code = 9.7 mg/dL 8.6-10.6 4414931523) eGFR Calculation mL/min/1.73m2 (Non-) (test code = 3163809745) eGFR Calculation mL/min/1.73m2 () (test code = 1680054219) ALYSSA (test code = ALYSSA) Association of [...] tests). Lab Interpretation Abnormal (test code = 48355-5) [facility] HospitalHepatic Function Panel (ALB, T.PRO, BILI T, BU/BC, ALT, AST, ALK PHOS)2020-03-04 23:56:00 Test Item Value Reference Range Interpretation Comments TOTAL BILI (test code = 4816143287) 1.1 mg/dL 0.1-1.1 BILI UNCON (test code = 8340130816) 1.1 mg/dL 0.1-1.1 BILI CONJ (test code = 7261146890) 0.0 mg/dL 0-0.3 T PROTEIN (test code = 5392626875) 7.1 g/dL 6.3-8.2 ALBUMIN (test code = 7803326160) 4.1 g/dL 3.5-5 ALK PHOS (test code = 8027956128) 61 U/L 34-122 ALTv (test code = 1742-6) 16 U/L 5-50 AST(SGOT) (test code = 2136868902) 23 U/L 13-40 Lab Interpretation (test code = Normal 18726-6) [facility] HospitalLipase [id number] 23:56:00 Test Item Value Reference Range Interpretation Comments LIPASE (test code = 2986386155) 149 U/L 0-220 Lab Interpretation (test code = Normal 20156-6) [facility] HospitalaPTT2020-04-19 23:56:00 Test Item Value Reference Range Interpretation Comments APTT Patient (test See_Comment [Automat ed code = 3173-2) message] The system which generated this result transmitted reference range : 23 - 38 Seconds . The reference range was not used to interpr et this result as normal/abnormal . ALYSSA (test code = ALYSSA) The [facility] patient population mean normal value for aPTT is 30 seconds. Lab Interpretation Normal (test code = 75721-4) [facility] HospitalCBC WITH [id number] 23:46:00 Test Item Value Reference Range Interpretation [...] RDW-SD (test code = 48.3 fL 38.5-51.6 99160-8) RDW-CV (test code = 14.7 % 12.1-15.4 788-0) PLT (test code = See_Comment [Automated 777-3) message] The sy stem which generated this result transmitted reference range : 150 - 328 10*3/ ?L. The reference r corey was not used to interpret this result as normal/abnormal . MPV (test code = 9.8 fL 9.8-13 27133-5) NRBC/100 WBC (test See_Comment [Automat ed code = 2383553431) message] The system which generated this result transmitted reference range : 0.0 - 10.0 /100 WBCs. The refer ence range was not u sed to interpret th is result as normal/abnormal . NRBC x10^3 (test code <0.01 See_Comment [Auto mated = 3027144762) message] The s ystem which generated this result transmitted reference range : 10*3/?L. The reference range was not used to interpret this result as normal/abnormal . GRAN MAT (NEUT) % 60.1 % (test code = 770-8) IMM GRAN % (test code 0.20 % = 9153152386) LYMPH % (test code = 26.4 % 736-9) MONO % (test code = 9.9 % 5905-5) EOS % (test code = 2.8 % 713-8) BASO % (test code = 0.6 % 706-2) GRAN MAT x10^3(ANC) 3.17 10*3/uL 1.99-6.95 (test code = 8299314435) IMM GRAN x10^3 (test <0.03 0-0.06 code = 3561126518) LYMPH x10^3 (test code 1.39 10*3/uL 1.09-3.23 = 731-0) MONO x10^3 (test code 0.52 10*3/uL 0.36-1.02 = 742-7) EOS x10^3 (test code = 0.15 10*3/uL 0.06-0.53 711-2) BASO x10^3 (test code 0.03 10*3/uL 0.01-0.09 = 704-7) Lab Interpretation Abnormal (test code = 34739-6) [facility] GLUCOSE (AUTOMATED)2020-03-02 16:04:00 Test Item Value Reference Range Interpretation Comments POCT GLU (test code = 6551145003) 214 mg/dL 70-110 H Lab Interpretation (test code = Abnormal 94466-8) [facility] GLUCOSE (AUTOMATED)2020-03-02 16:04:00 Test Item Value Reference Range Interpretation Comments POCT GLU (test code = 1361572213) 271 mg/dL 70-110 H Lab Interpretation (test code = Abnormal 07514-5) [facility] HospitalN-TERMINAL [id number] 09:43:00 Test Item Value Reference Range Interpretation Comments NT-proBNP (test code 1670 pg/mL See_Comment H [Autom ated = 2307440183) message] The system which generated this result transmitted reference range : <=450. The reference range was not used to interpret this result as normal/abnormal . ALYSSA (test code = ALYSSA) Biotin has been reported to cause a negative bias, interpret results relative to patient's use of biotin. Lab Interpretation Abnormal (test code = 39470-2) [facility]BAMU[facility] (NA, K, CL, CO2, GLUCOSE, BUN, CREATININE, CA)2020-03-02 09:33:00 Test Item Value Reference Range Interpretation Comments NA (test code = 143 mmol/L 135-145 1170656420) K (test code = 3.8 mmol/L 3.5-5 1915967742) CL (test code = 105 mmol/L 98-108 2456786261) CO2 TOTAL (test code = 28 mmol/L 23-31 2417215534) AGAP (test code = 2-16 8155735347) BUN (test code = 19 mg/dL 7-23 5637858205) GLUCOSE (test code = 152 mg/dL 70-110 H 7670702457) CREATININE (test code = 1.18 mg/dL 0.6-1.25 8963060700) CALCIUM (test code = 9.0 mg/dL 8.6-10.6 2533868778) eGFR Calculation mL/min/1.73m2 (Non-) (test code = 6606730604) eGFR Calculation mL/min/1.73m2 () (test code = 2786760682) ALYSSA (test code = ALYSSA) Association of [...] tests). Lab Interpretation Abnormal (test code = 89297-4) [facility] HospitalMAGNESIUM2020-04-17 09:33:00 Test Item Value Reference Range Interpretation Comments MAGNESIUM (test code = 1509551602) 1.8 mg/dL 1.7-2.4 Lab Interpretation (test code = Normal 24520-8) [facility] HospitalPOCT GLUCOSE (AUTOMATED)2020-03-01 20:42:00 Test Item Value Reference Range Interpretation Comments POCT GLU (test code = 9196338166) 231 mg/dL 70-110 H Lab Interpretation (test code = Abnormal 82627-3) [facility] HospitalVITAMIN B12, [id number] 11:51:00 Test Item Value Reference Range Interpretation Comments VIT B12 (test code = 325 pg/mL 240-930 3864477943) ALYSSA (test code = ALYSSA) Biotin has been reported to cause a positive bias, interpret results relative to patient's use of biotin. Lab Interpretation (test Normal code = 95455-7) [facility] HospitalFOLATE2020-04-16 11:49:00 Test Item Value Reference Range Interpretation Comments FOLATE SER (test code = >20.0 3-20 H Slig ht hemolysis 5699018551) Lab Interpretation (test Abnormal code = 19255-8) [facility] HospitalPROCALCITONIN2020-04-16 10:49:00 Test Item Value Reference Range Interpretation Comments Procalcitonin (test 3.05 ng/mL <0.07 H code = 6849048519) AYLSSA (test code = ALYSSA) INTERPRETATION OF PROCALCITONIN [...] lung abscess/empyema. For further information please refer to:[email or web address] Lab Interpretation Abnormal (test code = 09935-4) [facility] HospitalTROPONIN [id number] 09:58:00 Test Item Value Reference Range Interpretation Comments TROPONIN I (test 0.093 ng/mL See_Comment H [Automated code = 2977626306) message] The system which generated this result [...] ? Lab Interpretation Abnormal (test code = 58682-8) [facility] HospitalN-TERMINAL [id number] 09:55:00 Test Item Value Reference Range Interpretation Comments NT-proBNP (test code 4450 pg/mL See_Comment H [Autom ated = 0717139897) message] The system which generated this result transmitted reference range : <=450. The reference range was not used to interpret this result as normal/abnormal . ALYSSA (test code = ALYSSA) Biotin has been reported to cause a negative bias, interpret results relative to patient's use of biotin. Lab Interpretation Abnormal (test code = 95501-6) [facility] Metabolic Panel (NA, K, CL, CO2, GLUCOSE, BUN, CREATININE, CA)2020-03-01 09:50:00 Test Item Value Reference Range Interpretation Comments NA (test code = 141 mmol/L 135-145 6933388717) K (test code = 3.5 mmol/L 3.5-5 5197167518) CL (test code = 105 mmol/L 98-108 6283772486) CO2 TOTAL (test code = 26 mmol/L 23-31 9575881985) AGAP (test code = 2-16 6272253902) BUN (test code = 13 mg/dL 7-23 7887181482) GLUCOSE (test code = 219 mg/dL 70-110 H 8708575655) CREATININE (test code = 1.01 mg/dL 0.6-1.25 5033328252) CALCIUM (test code = 8.7 mg/dL 8.6-10.6 5685162113) eGFR Calculation mL/min/1.73m2 (Non-) (test code = 1157770356) eGFR Calculation mL/min/1.73m2 () (test code = 9602328410) ALYSSA (test code = ALYSSA) Association of [...] tests). Lab Interpretation Abnormal (test code = 40445-1) [facility] HospitalMagnesium [id number] 09:50:00 Test Item Value Reference Range Interpretation Comments MAGNESIUM (test code = 6693505512) 1.9 mg/dL 1.7-2.4 Lab Interpretation (test code = Normal 19186-0) [facility] HospitalCB WITH [id number] 09:22:00 Test Item Value Reference Range Interpretation [...] RDW-SD (test code = 47.8 fL 38.5-51.6 78920-2) RDW-CV (test code = 14.8 % 12.1-15.4 788-0) PLT (test code = See_Comment L [Automated 777-3) message] The sy stem which generated this result transmitted reference range : 150 - 328 10*3/ ?L. The reference r corey was not used to interpret this result as normal/abnormal . MPV (test code = 9.9 fL 9.8-13 59959-0) NRBC/100 WBC (test See_Comment [Automat ed code = 0607420379) message] The system which generated this result transmitted reference range : 0.0 - 10.0 /100 WBCs. The refer ence range was not u sed to interpret th is result as normal/abnormal . NRBC x10^3 (test code <0.01 See_Comment [Auto mated = 7664447247) message] The s ystem which generated this result transmitted reference range : 10*3/?L. The reference range was not used to interpret this result as normal/abnormal . GRAN MAT (NEUT) % 66.0 % (test code = 770-8) IMM GRAN % (test code 0.30 % = 0179686547) LYMPH % (test code = 20.8 % 736-9) MONO % (test code = 9.5 % 5905-5) EOS % (test code = 2.8 % 713-8) BASO % (test code = 0.6 % 706-2) GRAN MAT x10^3(ANC) 4.44 10*3/uL 1.99-6.95 (test code = 6635743889) IMM GRAN x10^3 (test <0.03 0-0.06 code = 6099626392) LYMPH x10^3 (test code 1.40 10*3/uL 1.09-3.23 = 731-0) MONO x10^3 (test code 0.64 10*3/uL 0.36-1.02 = 742-7) EOS x10^3 (test code = 0.19 10*3/uL 0.06-0.53 711-2) BASO x10^3 (test code 0.04 10*3/uL 0.01-0.09 = 704-7) Lab Interpretation Abnormal (test code = 61197-3) [facility] HospitalGLYCOSYLATED HEMOGLOBIN (A1C)2020-03-01 06:49:00 Test Item Value [...] Indicated Lab Interpretation Abnormal (test code = 49851-4) [facility] HospitalURIC [id number] 06:25:00 Test Item Value Reference Range Interpretation Comments URIC ACID (test code = 9828328212) 2.3 mg/dL 3.6-8 L Lab Interpretation (test code = Abnormal 91640-2) [facility] HospitalSEDIMENTATION [id number] 05:25:00 Test Item Value Reference Range Interpretation Comments ESR (test code = See_Comment H [Automated message] 1382069913) The system [employer] generated this result transmitted ref erence range: 0 - 10 m m/HR. The reference r corey was not used to interpret this result as normal/abnor mal. Lab Interpretation (test Abnormal code = 13583-1) [facility] HospitalN-TERMINAL [id number] 04:07:00 Test Item Value Reference Range Interpretation Comments NT-proBNP (test code 4080 pg/mL See_Comment H [Autom ated = 4016337209) message] The system which generated this result transmitted reference range : <=450. The reference range was not used to interpret this result as normal/abnormal . ALYSSA (test code = ALYSSA) Biotin has been reported to cause a negative bias, interpret results relative to patient's use of biotin. Lab Interpretation Abnormal (test code = 90246-6) [facility] HospitalPOCT GLUCOSE (AUTOMATED)2020-03-01 03:42:00 Test Item Value Reference Range Interpretation Comments POCT GLU (test code = 5211825399) 190 mg/dL 70-110 H Lab Interpretation (test code = Abnormal 10964-4) [facility] HospitalTROPONIN [id number] 03:30:00 Test Item Value Reference Range Interpretation Comments TROPONIN I (test 0.098 ng/mL See_Comment H [Automated code = 4961675720) message] The system which generated this result [...] ? Lab Interpretation Abnormal (test code = 78427-0) [facility] HospitalHEPATIC FUNCTION PANEL (33615) (ALB,T.PRO,BILI T,BU/BC,ALT,AST,ALK PHOS)2020-03-01 03:24:00 Test Item Value Reference Range Interpretation Comments TOTAL BILI (test code = 3413783392) 2.2 mg/dL 0.1-1.1 H BILI UNCON (test code = 1738823135) 2.0 mg/dL 0.1-1.1 H BILI CONJ (test code = 1214706720) 0.0 mg/dL 0-0.3 T PROTEIN (test code = 9426373044) 6.7 g/dL 6.3-8.2 ALBUMIN (test code = 0346561538) 4.0 g/dL 3.5-5 ALK PHOS (test code = 4758769371) 48 U/L 34-122 ALTv (test code = 1742-6) 18 U/L 5-50 AST(SGOT) (test code = 1116652801) 57 U/L 13-40 H Lab Interpretation (test code = Abnormal 44118-1) [facility] HospitalPhosphorus [id number] 03:17:00 Test Item Value Reference Range Interpretation Comments PHOSPHORUS (test code = 3.1 mg/dL 2.5-5 Slig ht hemolysis 1916764705) Lab Interpretation (test Normal code = 15850-8) [facility] HospitalPROTHROMBIN TIME / [id number] 03:08:00 Test Item Value Reference Range Interpretation Comments PROTIME PATIENT (test See_Comment [Auto mated message] code = 5964-2) The system [facility] generated this result transmitted ref erence range: 12.0 - 1 4.7 Seconds. The re ference range was not u sed to interpret this result as normal/abnor mal. INR (test code = 6301-6) Nor mal INR <1.1; Warfarin Therap eutic range 2.0 to 3. 0 or 2.5 to 3.5, dep ending upon the indica tions. Lab Interpretation (test Normal code = 20330-0) [facility] HospitalCREATINE [id number] 03:01:00 Test Item Value Reference Range Interpretation Comments CK (test code = 2679727582) 68 U/L 33-194 Lab Interpretation (test code = Normal 57237-8) [facility] HospitalURIC [id number] 02:41:00 Test Item Value Reference Range Interpretation Comments URIC ACID (test code = 0876129778) 2.3 mg/dL 3.6-8 L Lab Interpretation (test code = Abnormal 46872-9) [facility] HospitalTHYROID STIMULATING [id number] 02:26:00 Test Item Value Reference Range Interpretation Comments TSH (test code = See_Comment [Automated message] 7663306397) The system [facility] h generated this result transmitted ref erence range: 0.45 - 4 .70 mIU/L. The refe rence range was not u sed to interpret this result as normal/abnor mal. Lab Interpretation (test Normal code = 66514-5) [facility] HospitalN-TERMINAL [id number] 02:04:00 Test Item Value Reference Range Interpretation Comments NT-proBNP (test code 4390 pg/mL See_Comment H [Autom ated = 6621718969) message] The system which generated this result transmitted reference range : <=450. The reference range was not used to interpret this result as normal/abnormal . ALYSSA (test code = ALYSSA) Biotin has been reported to cause a negative bias, interpret results relative to patient's use of biotin. Lab Interpretation Abnormal (test code = 35131-8) [facility] HospitalMAGNESIUM2020-04-16 02:01:00 Test Item Value Reference Range Interpretation Comments MAGNESIUM (test code = 6936490131) 1.5 mg/dL 1.7-2.4 L Lab Interpretation (test code = Abnormal 72765-9) [facility] HospitalLIPASE2020-04-16 00:22:00 Test Item Value Reference Range Interpretation Comments LIPASE (test code = 4091541423) 68 U/L 0-220 Lab Interpretation (test code = Normal 50604-9) [facility] HospitalCORONAVIRUS COVID-19 [id number] 23:42:00 Test Item Value Reference Range Interpretation Comments SARS-CoV-2 (test code = Not Detected Not Detected 13712-3) ALYSSA (test code = ALYSSA) ID NOW COVID-19 Assay is an isothermal nucleic acid amplification test intended for the qualitative detection of nucleic acid from SARS-CoV-2 viral RNA in nasopharyngeal (MAIL ROOM) specimens. It is used under Emergency Use [...] indicated. Lab Interpretation Normal (test code = 72151-4) [facility] HospitalXR CHEST 1 VW [id number] 23:26:02 No acute intrathoracic abnormality, specifically no radiographic findingsto suggest COVID-19 pneumonia. Disclaimer: Generally, the findings on chest imaging in COVID-19 are notspecific, and overlap with other infections, including influenza, H1N1,SARS and MERS. According to the Centers for Disease Control (CDC) and recent statement ofthe [employer], viral testing remains the [...] overlie the mid thoracic spine. [facility], Radiant Results InftUser - 02/29/2020 6:27 PM [...] Disease Control (CDC) and recent statement ofthe [employer] [place] [employer], viral testing remains the only specificmethod of diagnosis. Confirmation with the viral test is required, even ifradiologic findings are suggestive of COVID-[address]. Preliminary Report Dictated by Resident: Radu Boo MD., have reviewed this study and agree with theabove report.[facility] HospitalWendy [id number] 22:59:00 Test Item Value Reference Range Interpretation Comments TROPONIN I (test 0.071 ng/mL See_Comment H [Automated code = 9265547248) message] The system which generated this result [...] ? Lab Interpretation Abnormal (test code = 86381-6) [facility]Bas[facility] Metabolic Panel (NA, K, CL, CO2, GLUCOSE, BUN, CREATININE, CA)2020-02-29 22:48:00 Test Item Value Reference Range Interpretation Comments NA (test code = 141 mmol/L 135-145 7338356091) K (test code = 3.2 mmol/L 3.5-5 L 5418844467) CL (test code = 104 mmol/L 98-108 6023543836) CO2 TOTAL (test code = 25 mmol/L 23-31 6653941012) AGAP (test code = 2-16 8039116191) BUN (test code = 12 mg/dL 7-23 3770323135) GLUCOSE (test code = 250 mg/dL 70-110 H 0401240298) CREATININE (test code = 1.02 mg/dL 0.6-1.25 7262384330) CALCIUM (test code = 8.9 mg/dL 8.6-10.6 7587183979) eGFR Calculation mL/min/1.73m2 (Non-) (test code = 2924130779) eGFR Calculation mL/min/1.73m2 () (test code = 2681982325) ALYSSA (test code = ALYSSA) Association of [...] tests). Lab Interpretation Abnormal (test code = 84586-7) [facility] WITH [id number] 22:41:00 Test Item Value Reference Range Interpretation Comments WBC (test code = See_Comment [Automated 2635-2) message] The sy stem which generated this result transmitted reference range : 4.20 - 10.70 10*3/?L. The reference range was not used to interpret this result as normal/abnormal . RBC (test code = See_Comment L [Automated 940-8) message] The sy stem which generated this [...] RDW-SD (test code = 46.6 fL 38.5-51.6 20721-2) RDW-CV (test code = 14.6 % 12.1-15.4 788-0) PLT (test code = See_Comment [Automated 777-3) message] The sy stem which generated this result transmitted reference range : 150 - 328 10*3/ ?L. The reference r corey was not used to interpret this result as normal/abnormal . MPV (test code = 9.7 fL 9.8-13 L 76496-2) NRBC/100 WBC (test See_Comment [Automat ed code = 3418627775) message] The system which generated this result transmitted reference range : 0.0 - 10.0 /100 WBCs. The refer ence range was not u sed to interpret th is result as normal/abnormal . NRBC x10^3 (test code <0.01 See_Comment [Auto mated = 5116248096) message] The s ystem which generated this result transmitted reference range : 10*3/?L. The reference range was not used to interpret this result as normal/abnormal . GRAN MAT (NEUT) % 68.6 % (test code = 770-8) IMM GRAN % (test code 0.30 % = 6151976748) LYMPH % (test code = 18.6 % 736-9) MONO % (test code = 10.1 % 5905-5) EOS % (test code = 1.8 % 713-8) BASO % (test code = 0.6 % 706-2) GRAN MAT x10^3(ANC) 4.29 10*3/uL 1.99-6.95 (test code = 0588026101) IMM GRAN x10^3 (test <0.03 0-0.06 code = 1531746026) LYMPH x10^3 (test code 1.16 10*3/uL 1.09-3.23 = 731-0) MONO x10^3 (test code 0.63 10*3/uL 0.36-1.02 = 742-7) EOS x10^3 (test code = 0.11 10*3/uL 0.06-0.53 711-2) BASO x10^3 (test code 0.04 10*3/uL 0.01-0.09 = 704-7) Lab Interpretation Abnormal (test code = 73232-7) [facility] HospitalLandic Acid Whole [id number] 22:38:00 Test Item Value Reference Range Interpretation Comments LACTIC ACID (test code = 1.88 mmol/L 0.3-2.6 3079235111) [facility] GLUCOSE (AUTOMATED)2020-01-17 18:18:00 Test Item Value Reference Range Interpretation Comments POCT GLU (test code = 8039905620) 290 mg/dL 70-110 H Lab Interpretation (test code = Abnormal 62753-0) [facility] [id number] 18:01:00 Test Item Value Reference Range Interpretation Comments TROPONIN I (test 0.065 ng/mL See_Comment H [Automated code = 3696075103) message] The system which generated this result [...] ? Lab Interpretation Abnormal (test code = 49806-6) [facility] 17:10:00 Test Item Value Reference Range Interpretation Comments APTT Patient (test See_Comment H [Automat ed code = 3173-2) message] The system which generated this result transmitted reference range : 23 - 38 Seconds . The reference range was not used to interpr et this result as normal/abnormal . ALYSSA (test code = ALYSSA) The [facility] patient population mean normal value for aPTT is 30 seconds. Lab Interpretation Abnormal (test code = 29405-3) [facility]2020-01-17 11:59:00 Test Item Value Reference Range Interpretation Comments POCT GLU (test code = 1935726548) 185 mg/dL 70-110 H Lab Interpretation (test code = Abnormal 79076-9) [facility] [id number] 11:23:00 Test Item Value Reference Range Interpretation Comments TROPONIN I (test 0.073 ng/mL See_Comment H [Automated code = 5080865678) message] The system which generated this result [...] ? Lab Interpretation Abnormal (test code = 04369-1) [facility] Metabolic Panel (NA, K, CL, CO2, GLUCOSE, BUN, CREATININE, CA)2020-01-17 11:16:00 Test Item Value Reference Range Interpretation Comments NA (test code = 136 mmol/L 135-145 1516679381) K (test code = 3.3 mmol/L 3.5-5 L 1368811506) CL (test code = 101 mmol/L 98-108 2079570522) CO2 TOTAL (test code = 26 mmol/L 23-31 3749917240) AGAP (test code = 2-16 1638264756) BUN (test code = 19 mg/dL 7-23 6588492614) GLUCOSE (test code = 227 mg/dL 70-110 H 7434242773) CREATININE (test code = 1.33 mg/dL 0.6-1.25 H 0011898256) CALCIUM (test code = 9.1 mg/dL 8.6-10.6 8145480151) eGFR Calculation mL/min/1.73m2 (Non-) (test code = 9497501321) eGFR Calculation mL/min/1.73m2 () (test code = 0760762030) ALYSSA (test code = ALYSSA) Association of [...] tests). Lab Interpretation Abnormal (test code = 36711-2) [facility] 11:00:00 Test Item Value Reference Range Interpretation Comments APTT Patient (test See_Comment H [Automat ed code = 3173-2) message] The system which generated this result transmitted reference range : 23 - 38 Seconds . The reference range was not used to interpr et this result as normal/abnormal . ALYSSA (test code = ALYSSA) The [facility] patient population mean normal value for aPTT is 30 seconds. Lab Interpretation Abnormal (test code = 78814-2) [facility]CBC WITH OQYMCVEOOPFY7111-81-18 10:43:00 Test Item Value Reference Range Interpretation Comments WBC (test code = See_Comment [Automated message] 6690-2) The system eTipping generated this result transmitted ref erence range: 4.20 - 1 0.70 10*3/?L. The re ference range was not u sed to interpret this result as normal/abnor mal. RBC (test code = See_Comment [Automated message] 789-8) The system eTipping generated this result transmitted ref erence range: [...] RDW-SD (test code 41.5 fL 38.5-51.6 = 89745-8) RDW-CV (test code 12.8 % 12.1-15.4 = 788-0) PLT (test code = See_Comment [Automated message] 777-3) The system whic h generated this result transmitted ref erence range: 150 - 32 8 10*3/?L. The re ference range was not u sed to interpret this result as normal/abnor mal. MPV (test code = 10.7 fL 9.8-13 32406-5) NRBC/100 WBC (test See_Comment [Automat ed message] code = 6332847968) The syste m which generated this result transmitted ref erence range: 0.0 - 10 .0 /100 WBCs. The refer ence range was not u sed to interpret this result as normal/abnor mal. NRBC x10^3 (test <0.01 See_Comment [Automated message] code = 4491985542) The syste m which generated this result transmitted ref erence range: 10*3/?L. The reference range was not used to interpr et this result as normal/abnormal . GRAN MAT (NEUT) % 56.1 % (test code = 770-8) IMM GRAN % (test 0.30 % code = 8326957801) LYMPH % (test code 29.5 % = 736-9) MONO % (test code 9.9 % = 5905-5) EOS % (test code = 3.3 % 713-8) BASO % (test code 0.9 % = 706-2) GRAN MAT 3.73 10*3/uL 1.99-6.95 x10^3(ANC) (test code = 2651186465) IMM GRAN x10^3 <0.03 0-0.06 (test code = 3792826402) LYMPH x10^3 (test 1.96 10*3/uL 1.09-3.23 code = 731-0) MONO x10^3 (test 0.66 10*3/uL 0.36-1.02 code = 742-7) EOS x10^3 (test 0.22 10*3/uL 0.06-0.53 code = 711-2) BASO x10^3 (test 0.06 10*3/uL 0.01-0.09 code = 704-7) [facility] GLUCOSE (AUTOMATED)2020-01-17 01:49:00 Test Item Value Reference Range Interpretation Comments POCT GLU (test code = 8204491038) 305 mg/dL 70-110 H Lab Interpretation (test code = Abnormal 82258-6) [facility] GLUCOSE (AUTOMATED)2020-01-17 00:01:00 Test Item Value Reference Range Interpretation Comments POCT GLU (test code = 8028210836) 271 mg/dL 70-110 H Lab Interpretation (test code = Abnormal 34149-4) [facility] 22:23:00 Test Item Value Reference Range Interpretation Comments APTT Patient (test See_Comment H [Automat ed code = 3173-2) message] The system which generated this result transmitted reference range : 23 - 38 Seconds . The reference range was not used to interpr et this result as normal/abnormal . ALYSSA (test code = ALYSSA) The [facility] patient population mean normal value for aPTT is 30 seconds. Lab Interpretation Abnormal (test code = 34809-9) [facility]TR[facility] [id number] 21:22:00 Test Item Value Reference Range Interpretation Comments TROPONIN I (test 0.061 ng/mL See_Comment H [Automated code = 1409438784) message] The system which generated this result [...] ? Lab Interpretation Abnormal (test code = 97085-8) [facility]2020-01-16 17:37:00 Test Item Value Reference Range Interpretation Comments POCT GLU (test code = 8959356171) 271 mg/dL 70-110 H Lab Interpretation (test code = Abnormal 31190-0) [facility] 12:47:00 Test Item Value Reference Range Interpretation Comments APTT Patient (test See_Comment HH [Automat ed code = 3173-2) message] The system which generated this result transmitted reference range : 23 - 38 Seconds . The reference range was not used to interpr et this result as normal/abnormal . ALYSSA (test code = ALYSSA) The [facility] patient population mean normal value for aPTT is 30 seconds. Lab Interpretation Abnormal (test code = 01597-0) [facility] HospitalTROPONIN [id number] 12:35:00 Test Item Value Reference Range Interpretation Comments TROPONIN I (test 0.074 ng/mL See_Comment H [Automated code = 9852445288) message] The system which generated this result [...] ? Lab Interpretation Abnormal (test code = 67024-2) [facility] HospitalLIPID PANEL (18332)(TOTAL CHOLESTEROL, TRIGLYCERIDES, HDL)2020-01-16 12:23:00 Test Item Value Reference Range Interpretation Comments CHOL (test code = 95 mg/dL 120-200 L 7447212655) HDL (test code = 44 mg/dL >40 8233458393) HDLC RATIO (test code = See_Comment [Au tomated message] 2789064997) The system eTipping generated this result transmitted ref erence range: <=5.0. T he reference range was not used to int erpret this result as normal/abnormal . TRIG (test code = 89 mg/dL 30-170 5407335974) LDL CHOL (test code = 33 mg/dL See_Comment [Auto mated message] 36166-3) The system eTipping generated this result transmitted ref erence range: <=160. T he reference range was not used to int erpret this result as normal/abnormal . VLDL (test code = 18 mg/dL 5-60 3436951007) Lab Interpretation (test Abnormal code = 79401-3) [facility] HospitalGlycosylated Hemoglobin (A1C)2020-01-16 09:03:00 Test Item Value [...] Indicated Lab Interpretation Abnormal (test code = 13163-5) [facility] HospitalCritical Lorf1601-29-16 05:48:18Charanjit Heck MD ? ? 01/15/2020 11:48 [...] old charts and examination of patientUnMem[facility] KingwoodProthrombin Time (PT) / [id number] 05:28:00 Test Item Value Reference Range Interpretation [...] tions. Lab Interpretation (test Normal code = 22333-7) [facility]2020-[facility] 05:27:00 Test Item Value Reference Range Interpretation Comments APTT Patient (test See_Comment [Automat ed code = 3173-2) message] The system which generated this result transmitted reference range : 23 - 38 Seconds . The reference range was not used to interpr et this result as normal/abnormal . ALYSSA (test code = ALYSSA) The [facility] patient population mean normal value for aPTT is 30 seconds. Lab Interpretation Normal (test code = 07443-1) [facility] HospitalTroponin [id number] 05:11:00 Test Item Value Reference Range Interpretation Comments TROPONIN I (test 0.075 ng/mL See_Comment H [Automated code = 9733083249) message] The system which generated this result [...] ? Lab Interpretation Abnormal (test code = 43007-1) [facility] HospitalN-TERMINAL JCU-ZNZ7658-03-02 05:08:00 Test Item Value Reference Range Interpretation Comments NT-proBNP (test code 896 pg/mL See_Comment H [Autom ated = 7680866017) message] The system which generated this result transmitted reference range : <=450. The reference range was not used to interpret this result as normal/abnormal . ALYSSA (test code = ALYSSA) Biotin has been reported to cause a negative bias, interpret results relative to patient's use of biotin. Lab Interpretation Abnormal (test code = 80843-9) [facility] HospitalBasi Metabolic Panel (NA, K, CL, CO2, GLUCOSE, BUN, CREATININE, CA)2020-01-16 04:59:00 Test Item Value Reference Range Interpretation Comments NA (test code = 136 mmol/L 135-145 0533920837) K (test code = 4.0 mmol/L 3.5-5 1524324926) CL (test code = 101 mmol/L 98-108 3497384905) CO2 TOTAL (test code = 27 mmol/L 23-31 4165565215) AGAP (test code = 2-16 8376526298) BUN (test code = 17 mg/dL 7-23 5041588224) GLUCOSE (test code = 445 mg/dL 70-110 H 6260025240) CREATININE (test code = 1.29 mg/dL 0.6-1.25 H 2174367507) CALCIUM (test code = 8.8 mg/dL 8.6-10.6 5359315632) eGFR Calculation mL/min/1.73m2 (Non-) (test code = 5555451818) eGFR Calculation mL/min/1.73m2 () (test code = 7344442997) ALYSSA (test code = ALYSSA) Association of [...] tests). Lab Interpretation Abnormal (test code = 22545-1) [facility] HospitalHepatic Function Panel (ALB, T.PRO, BILI T, BU/BC, ALT, AST, ALK PHOS)2020-01-16 04:59:00 Test Item Value Reference Range Interpretation Comments TOTAL BILI (test code = 5168758370) 1.3 mg/dL 0.1-1.1 H BILI UNCON (test code = 1631848007) 1.1 mg/dL 0.1-1.1 BILI CONJ (test code = 0836362424) 0.0 mg/dL 0-0.3 T PROTEIN (test code = 2952825474) 6.3 g/dL 6.3-8.2 ALBUMIN (test code = 8390475845) 3.9 g/dL 3.5-5 ALK PHOS (test code = 2318609279) 67 U/L 34-122 ALTv (test code = 1742-6) 15 U/L 5-50 AST(SGOT) (test code = 9700093288) 23 U/L 13-40 Lab Interpretation (test code = Abnormal 83880-7) [facility] 1 Wpiz4138-28-96 04:54:13Impression: Moderate cardiomegaly without acute pulmonary process. RL: 460 AFC: [id number] Electronicallysigned by Esperanza Rosado MD, PhD at 01/15/2020 10:54 PMIndication: Chest pain Comparison: None available Findings: Single AP view of the chest. The cardiopericardial silhouette ismoderately enlarged.The lungs are clear bilaterally. The visualized bonythorax is intact. A thoracic neurostimulator device is in place. [facility], Radiant Results Inft User - 01/15/2020 10:55 PM CSTIndication: Chest painComparison: None availableFindings: Single AP view of the chest. The cardiopericardial silhouette ismoderately enlarged. The lungs are clear bilaterally. The visualized bonythorax is intact. A thoracic neurostimulator device is in place.IMPRESSIONImpression:Moderate cardiomegaly without acute pulmonary process.RL: 460AFC: [id number] signed by Esperanza Rosado MD, PhD at 01/15/2020 10:54 PMUnK[facility] WITH TFBVWEBSUKHC6773-12-41 04:51:00 Test Item Value Reference Range Interpretation [...] RDW-SD (test code = 40.7 fL 38.5-51.6 91729-4) RDW-CV (test code = 12.8 % 12.1-15.4 788-0) PLT (test code = See_Comment L [Automated 777-3) message] The sy stem which generated this result transmitted reference range : 150 - 328 10*3/ ?L. The reference r corey was not used to interpret this result as normal/abnormal . MPV (test code = 10.6 fL 9.8-13 90934-7) IPF % (test code = 2.8 % 1.2-10.7 Platelet count 3727865493) measured by fluorescence method. NRBC/100 WBC (test See_Comment [Automat ed code = 0300677436) message] The system which generated this result transmitted reference range : 0.0 - 10.0 /100 WBCs. The refer ence range was not u sed to interpret th is result as normal/abnormal . NRBC x10^3 (test code <0.01 See_Comment [Auto mated = 8315783889) message] The s ystem which generated this result transmitted reference range : 10*3/?L. The reference range was not used to interpret this result as normal/abnormal . GRAN MAT (NEUT) % 56.0 % (test code = 770-8) IMM GRAN % (test code 0.20 % = 2521865520) LYMPH % (test code = 30.5 % 736-9) MONO % (test code = 9.6 % 5905-5) EOS % (test code = 2.8 % 713-8) BASO % (test code = 0.9 % 706-2) GRAN MAT x10^3(ANC) 2.98 10*3/uL 1.99-6.95 (test code = 4636623006) IMM GRAN x10^3 (test <0.03 0-0.06 code = 7091094831) LYMPH x10^3 (test code 1.62 10*3/uL 1.09-3.23 = 731-0) MONO x10^3 (test code 0.51 10*3/uL 0.36-1.02 = 742-7) EOS x10^3 (test code = 0.15 10*3/uL 0.06-0.53 711-2) BASO x10^3 (test code 0.05 10*3/uL 0.01-0.09 = 704-7) Lab Interpretation Abnormal (test code = 64251-8) [facility] HospitalCHEMISTRY2013-04-22 10:30:00 Test Item Value Reference Range Interpretation Comments eGFR (test code = eGFR) 37 [facility]XyqrkekYPFPKMNEK4197-22-11 10:30:00 Test Item Value Reference Range Interpretation Comments Sodium Lvl (test code = Sodium Lvl) 144 135-145 N [facility] CenterBdarchuNOIEFWPGN2872-52-57 10:30:00 Test Item Value Reference Range Interpretation Comments Potassium Lvl (test code = Potassium 3.9 3.5-5.1 N Lvl) [facility] CenterRnlyyawAPHARFBFD6013-45-21 10:30:00 Test Item Value Reference Range Interpretation Comments Chloride Lvl (test code = Chloride Lvl) 104 95-109 N [facility] CenterKleembrCLEIKHOVL8393-97-52 10:30:00 Test Item Value Reference Range Interpretation Comments CO2 (test code = CO2) 26 24-32 N [facility] ClubImpodezUBJLMNEOU0156-15-74 10:30:00 Test Item Value Reference Range Interpretation Comments Calcium Lvl (test code = Calcium Lvl) 8.6 8.5-10.5 N [facility] ClubQwqlcgkAINZTDQYF2993-22-03 10:30:00 Test Item Value Reference Range Interpretation Comments Glucose Lvl (test code = Glucose Lvl) 160 70-99 H [facility] ClubEenvegjHJJBBOJOO6115-61-53 10:30:00 Test Item Value Reference Range Interpretation Comments BUN (test code = BUN) 23 7-22 H [facility] ClubUffeofdWXYAIFFMX7836-05-53 10:30:00 Test Item Value Reference Range Interpretation Comments Creatinine Lvl (test code = Creatinine 1.8 0.5-1.4 H Lvl) [facility] ClubXmnlodrFSENETUPU9129-85-50 10:30:00 Test Item Value Reference Range Interpretation Comments AGAP (test code = AGAP) 17.9 10.0-20.0 N [facility] DistrictYdccvybBXMIYALCUD7141-36-81 10:30:00 Test Item Value Reference Range Interpretation Comments MPV (test code = MPV) 8.3 7.4-10.4 N [facility] DistrictWkmvgpeVJAWOQTEEO0067-72-95 10:30:00 Test Item Value Reference Range Interpretation Comments RDW (test code = RDW) 13.6 11.5-14.5 N [facility] DistrictUixidmdJPBLYWCGEZ4985-12-94 10:30:00 Test Item Value Reference Range Interpretation Comments MCHC (test code = MCHC) 34.5 32.0-36.0 N [facility] DistrictXkzzzcvJATNKESCZX2704-66-88 10:30:00 Test Item Value Reference Range Interpretation Comments Platelet (test code = Platelet) 155 133-450 N [facility] DistrictAwlaupzZBLFELNLCZ4525-82-92 10:30:00 Test Item Value Reference Range Interpretation Comments MCH (test code = MCH) 33.0 pg 27.0-31.0 H [facility] DistrictSqdxexdPZDWXMUXNF1714-07-21 10:30:00 Test Item Value Reference Range Interpretation Comments MCV (test code = MCV) 95.8 80.0-94.0 H [facility] DistrictCtywwkcRQOXKAWTQA1622-11-80 10:30:00 Test Item Value Reference Range Interpretation Comments WBC (test code = WBC) 4.6 3.7-10.4 N [facility] DistrictFblrsejZUHOJDDALB1252-52-22 10:30:00 Test Item Value Reference Range Interpretation Comments RBC (test code = RBC) 3.81 4.70-6.10 L [facility] DistrictRiejpohWYMDGORBQY9369-68-96 10:30:00 Test Item Value Reference Range Interpretation Comments Hgb (test code = Hgb) 12.6 14.0-18.0 L [facility] DistrictHsyzakbZDBZZISROJ3237-89-07 10:30:00 Test Item Value Reference Range Interpretation Comments Hct (test code = Hct) 36.5 42.0-54.0 L [facility] DistrictJajintjJCVGOIESUV6749-55-18 10:30:00 Test Item Value Reference Range Interpretation Comments Lymphocytes # (test code = Lymphocytes 1.1 1.0-5.5 N #) [facility] DistrictXwrhzlaUCEMTJWADV4821-45-88 10:30:00 Test Item Value Reference Range Interpretation Comments Monocytes # (test code 0.6 See_Comment N [Aut omated message] The = Monocytes #) system which generated this result tra nsmitted reference range : <=0.8. The reference r corey was not used to int erpret this result as normal/abnormal . [facility] DistrictBuwdgggOQLXPJXLMQ2541-31-77 10:30:00 Test Item Value Reference Range Interpretation Comments Eosinophils # (test code 0.3 See_Comment N [A utomated message] The = Eosinophils #) system whic h generated this result tra nsmitted reference range : <=0.5. The reference r corey was not used to int erpret this result as normal/abnormal . [facility] DistrictSxuofqsBMUFHVRFIO4638-12-26 10:30:00 Test Item Value Reference Range Interpretation Comments Basophils # (test code 0.0 See_Comment N [Aut omated message] The = Basophils #) system which generated this result tra nsmitted reference range : <=0.2. The reference r corey was not used to int erpret this result as normal/abnormal . [facility] DistrictLnjfrbmYUBVAUEZPU6047-45-02 10:30:00 Test Item Value Reference Range Interpretation Comments Segs (test code = Segs) 56.4 45.0-75.0 N [facility] DistrictVklzcmkAEKTZHIMRM5927-13-34 10:30:00 Test Item Value Reference Range Interpretation Comments Segs-Bands # (test code = Segs-Bands #) 2.6 1.5-8.1 N [facility] DistrictZwqjhbsQHANEVULRE8670-23-19 10:30:00 Test Item Value Reference Range Interpretation Comments Lymphocytes (test code = Lymphocytes) 24.8 20.0-40.0 N [facility] DistrictBttvthyUUORPXWHBG6878-54-24 10:30:00 Test Item Value Reference Range Interpretation Comments Monocytes (test code = Monocytes) 12.3 2.0-12.0 H [facility] DistrictKwextbgSLQAEWJTIM4039-08-18 10:30:00 Test Item Value Reference Range Interpretation Comments Eosinophils (test code = 5.9 See_Comment H [A utomated message] The Eosinophils) system which ge nerated this result tra nsmitted reference range : <=4.0. The reference r corey was not used to int erpret this result as normal/abnormal . [facility] DistrictUdhbntzHTQYPIFIFP1909-95-58 10:30:00 Test Item Value Reference Range Interpretation Comments Basophils (test code = 0.6 See_Comment N [Aut omated message] The Basophils) system which ge nerated this result tra nsmitted reference range : <=1.0. The reference r corey was not used to int erpret this result as normal/abnormal . [facility] ClubZenmtqvJLXBAGISR0440-74-97 10:30:00 Test Item Value Reference Range Interpretation Comments eGFR (test code = eGFR) 37 [facility] ClubGgjfjnzIWOVQFLBH6978-88-31 10:30:00 Test Item Value Reference Range Interpretation Comments Sodium Lvl (test code = Sodium Lvl) 144 135-145 N [facility] ClubZmebdlcMJCERTZNT3835-48-08 10:30:00 Test Item Value Reference Range Interpretation Comments Potassium Lvl (test code = Potassium 3.9 3.5-5.1 N Lvl) [facility] ClubVlqgslxOTCXHOSXW4451-94-59 10:30:00 Test Item Value Reference Range Interpretation Comments Chloride Lvl (test code = Chloride Lvl) 104 95-109 N [facility] ClubXlzgldnSOKPYHQAH8607-73-19 10:30:00 Test Item Value Reference Range Interpretation Comments CO2 (test code = CO2) 26 24-32 N [facility] ClubMeaueezCNDIAKWHN1619-50-92 10:30:00 Test Item Value Reference Range Interpretation Comments Calcium Lvl (test code = Calcium Lvl) 8.6 8.5-10.5 N [facility] ClubSfobwpiPHCPFINGH4968-31-79 10:30:00 Test Item Value Reference Range Interpretation Comments Glucose Lvl (test code = Glucose Lvl) 160 70-99 H [facility] ClubYpcvxxxQOKFVBTLI8856-16-19 10:30:00 Test Item Value Reference Range Interpretation Comments BUN (test code = BUN) 23 7-22 H [facility] ClubQlmrzvdMUHEJZWLQ5367-88-23 10:30:00 Test Item Value Reference Range Interpretation Comments Creatinine Lvl (test code = Creatinine 1.8 0.5-1.4 H Lvl) [facility] ClubGzvtzrxSLIBHTVYN6599-13-99 10:30:00 Test Item Value Reference Range Interpretation Comments AGAP (test code = AGAP) 17.9 10.0-20.0 N [facility] DistrictHvbovfcADMKDJUXUW9325-43-26 10:30:00 Test Item Value Reference Range Interpretation Comments MPV (test code = MPV) 8.3 7.4-10.4 N [facility] DistrictRemrtdoHQBNNQCHFG8096-29-45 10:30:00 Test Item Value Reference Range Interpretation Comments RDW (test code = RDW) 13.6 11.5-14.5 N [facility] DistrictIkrgmxrDMUZKLLCCJ5989-85-58 10:30:00 Test Item Value Reference Range Interpretation Comments MCHC (test code = MCHC) 34.5 32.0-36.0 N [facility] DistrictDkenryrMTFOIFCBEJ2726-57-14 10:30:00 Test Item Value Reference Range Interpretation Comments Platelet (test code = Platelet) 155 133-450 N [facility] DistrictCzvljzpLFTKFEORTX0403-44-19 10:30:00 Test Item Value Reference Range Interpretation Comments MCH (test code = MCH) 33.0 pg 27.0-31.0 H [facility] DistrictGakieylECWBXITCVF5445-80-82 10:30:00 Test Item Value Reference Range Interpretation Comments MCV (test code = MCV) 95.8 80.0-94.0 H [facility] DistrictGfrddanMOMFNXDJHQ1296-93-42 10:30:00 Test Item Value Reference Range Interpretation Comments WBC (test code = WBC) 4.6 3.7-10.4 N [facility] DistrictVwdlgfcZNUVNMZGNM1791-62-82 10:30:00 Test Item Value Reference Range Interpretation Comments RBC (test code = RBC) 3.81 4.70-6.10 L [facility] DistrictFkjpbezNKSETMTCIV7274-22-74 10:30:00 Test Item Value Reference Range Interpretation Comments Hgb (test code = Hgb) 12.6 14.0-18.0 L [facility] DistrictZqvfpvnTIHWWAZXVZ5731-56-79 10:30:00 Test Item Value Reference Range Interpretation Comments Hct (test code = Hct) 36.5 42.0-54.0 L [facility] DistrictIkflgstEGWWJWZBUS8533-67-84 10:30:00 Test Item Value Reference Range Interpretation Comments Lymphocytes # (test code = Lymphocytes 1.1 1.0-5.5 N #) [facility] DistrictCprzrgkBXTTHHUQPZ3883-24-56 10:30:00 Test Item Value Reference Range Interpretation Comments Monocytes # (test code 0.6 See_Comment N [Aut omated message] The = Monocytes #) system which generated this result tra nsmitted reference range : <=0.8. The reference r corey was not used to int erpret this result as normal/abnormal . [facility]TgkccfkHTIVYLGHBO6747-09-07 10:30:00 Test Item Value Reference Range Interpretation Comments Eosinophils # (test code 0.3 See_Comment N [A utomated message] The = Eosinophils #) system whic h generated this result tra nsmitted reference range : <=0.5. The reference r corey was not used to int erpret this result as normal/abnormal . [facility] DistrictDdxcxwyQROBUITWIO3507-59-18 10:30:00 Test Item Value Reference Range Interpretation Comments Basophils # (test code 0.0 See_Comment N [Aut omated message] The = Basophils #) system which generated this result tra nsmitted reference range : <=0.2. The reference r corey was not used to int erpret this result as normal/abnormal . [facility] DistrictMkzjhcqVTDFKZCOWP7761-11-97 10:30:00 Test Item Value Reference Range Interpretation Comments Segs (test code = Segs) 56.4 45.0-75.0 N [facility] DistrictFyzopnlOGEQRGHGJL8162-83-54 10:30:00 Test Item Value Reference Range Interpretation Comments Segs-Bands # (test code = Segs-Bands #) 2.6 1.5-8.1 N [facility] DistrictHyqfcytNTCTHQCWUT5197-67-64 10:30:00 Test Item Value Reference Range Interpretation Comments Lymphocytes (test code = Lymphocytes) 24.8 20.0-40.0 N [facility] DistrictAhmtkphBZQPSFYUKG3037-92-56 10:30:00 Test Item Value Reference Range Interpretation Comments Monocytes (test code = Monocytes) 12.3 2.0-12.0 [facility]okouyZKFJYFHALC5536-32-22 10:30:00 Test Item Value Reference Range Interpretation Comments Eosinophils (test code = 5.9 See_Comment H [A utomated message] The Eosinophils) system which ge nerated this result tra nsmitted reference range : <=4.0. The reference r corey was not used to int erpret this result as normal/abnormal . [facility] DistrictTjfisoyGXAAVMKZEY5707-65-82 10:30:00 Test Item Value Reference Range Interpretation Comments Basophils (test code = 0.6 See_Comment N [Aut omated message] The Basophils) system which ge nerated this result tra nsmitted reference range : <=1.0. The reference r corey was not used to int erpret this result as normal/abnormal . [facility] GLUCOSE PMDXBRO1134-03-35 22:11:00 Test Item Value Reference Range Interpretation Comments Gluc POC Lifscn (test code = Gluc POC 148 70-99 H Lifscn) [facility] GLUCOSE CAXLGEO2525-66-69 22:11:00 Test Item Value Reference Range Interpretation Comments Gluc POC Lifscn (test code = Gluc POC 148 70-99 H Lifscn) [facility] GLUCOSE NJAWKGF3485-21-51 17:23:00 Test Item Value Reference Range Interpretation Comments Comment1 (test code = Comment1) Notify RN/ [facility] GLUCOSE GUWOBCE0536-57-20 17:23:00 Test Item Value Reference Range Interpretation Comments Gluc POC Lifscn (test code = Gluc POC 119 70-99 H Lifscn) [facility] GLUCOSE RQZDVRA1193-11-29 17:23:00 Test Item Value Reference Range Interpretation Comments Comment1 (test code = Comment1) Notify RN/ [facility] GLUCOSE TYTKTVW5443-54-04 17:23:00 Test Item Value Reference Range Interpretation Comments Gluc POC Lifscn (test code = Gluc POC 119 70-99 H Lifscn) [facility] GLUCOSE XJMIKYV3101-71-17 09:52:00 Test Item Value Reference Range Interpretation Comments Comment1 (test code = Comment1) Notify RN/ [facility] GLUCOSE TZSTJYR7663-80-01 09:52:00 Test Item Value Reference Range Interpretation Comments Gluc POC Lifscn (test code = Gluc POC 140 70-99 H Lifscn) [facility] GLUCOSE ABCXTUN7285-48-26 09:52:00 Test Item Value Reference Range Interpretation Comments Comment1 (test code = Comment1) Notify RN/ [facility] GLUCOSE APZQWCL2679-84-72 09:52:00 Test Item Value Reference Range Interpretation Comments Gluc POC Lifscn (test code = Gluc POC 140 70-99 H Lifscn) [facility] GLUCOSE TVNNDQR5157-93-89 20:02:00 Test Item Value Reference Range Interpretation Comments Comment1 (test code = Comment1) Notify RN/MD [facility] GLUCOSE [id number] 20:02:00 Test Item Value Reference Range Interpretation Comments Comment1 (test code = Comment1) [facility]/ [facility] ClubBwefxmpCBHRUQYAA8412-40-70 10:40:00 Test Item Value Reference Range Interpretation Comments AGAP (test code = AGAP) 18.8 10.0-20.0 N [facility] ClubSiwplzdGJHKZWRST6171-46-38 10:40:00 Test Item Value Reference Range Interpretation Comments eGFR (test code = eGFR) 49 [facility] ClubGrcuynwSVBRZIBMS8389-39-67 10:40:00 Test Item Value Reference Range Interpretation Comments Creatinine Lvl (test code = Creatinine 1.4 0.5-1.4 N Lvl) [facility] ClubRbmicreOETWUNADZ1324-33-12 10:40:00 Test Item Value Reference Range Interpretation Comments Glucose Lvl (test code = Glucose Lvl) 143 70-99 H [facility] ClubQqrywqfUABHUSRWV1029-53-16 10:40:00 Test Item Value Reference Range Interpretation Comments BUN (test code = BUN) 7 7-22 N [facility] ClubDiwrydgODDKXVJKE0224-65-30 10:40:00 Test Item Value Reference Range Interpretation Comments CO2 (test code = CO2) 27 24-32 N [facility] ClubSnbwpfeLEFTHGJJW7912-97-82 10:40:00 Test Item Value Reference Range Interpretation Comments Calcium Lvl (test code = Calcium Lvl) 8.3 8.5-10.5 L [facility] ClubMvjpgfvMJQLSRINW3966-07-11 10:40:00 Test Item Value Reference Range Interpretation Comments Sodium Lvl (test code = Sodium Lvl) 144 135-145 N [facility] ClubZcamhofGTAHDXPUG8997-14-23 10:40:00 Test Item Value Reference Range Interpretation Comments Potassium Lvl (test code = Potassium 3.8 3.5-5.1 N Lvl) [facility] ClubShtqigiKEOQHYJVG6495-52-62 10:40:00 Test Item Value Reference Range Interpretation Comments Chloride Lvl (test code = Chloride Lvl) 102 95-109 N [facility] DistrictEinferoIALFTMJVDN2740-79-62 10:40:00 Test Item Value Reference Range Interpretation Comments Lymphocytes # (test code = Lymphocytes 0.7 1.0-5.5 L #) [facility] DistrictBnwnzbdYMLJIPNBWP4583-19-20 10:40:00 Test Item Value Reference Range Interpretation Comments Monocytes # (test code 0.5 See_Comment N [Aut omated message] The = Monocytes #) system which generated this result tra nsmitted reference range : <=0.8. The reference r corey was not used to int erpret this result as normal/abnormal . [facility] DistrictXmqilpjUFTHYYAQMO8971-12-97 10:40:00 Test Item Value Reference Range Interpretation Comments Monocytes (test code = Monocytes) 9.0 2.0-12.0 N [facility] DistrictXgennctLKXMPKCJRG9733-05-89 10:40:00 Test Item Value Reference Range Interpretation Comments Eosinophils (test code = 2.3 See_Comment N [A utomated message] The Eosinophils) system which ge nerated this result tra nsmitted reference range : <=4.0. The reference r corey was not used to int erpret this result as normal/abnormal . [facility] DistrictHqcmvziRNRVBQFHJA1998-82-72 10:40:00 Test Item Value Reference Range Interpretation Comments Eosinophils # (test code 0.1 See_Comment N [A utomated message] The = Eosinophils #) system whic h generated this result tra nsmitted reference range : <=0.5. The reference r corey was not used to int erpret this result as normal/abnormal . [facility] DistrictNsyplkoTRHKVAAAQR0899-53-41 10:40:00 Test Item Value Reference Range Interpretation Comments Basophils # (test code 0.0 See_Comment N [Aut omated message] The = Basophils #) system which generated this result tra nsmitted reference range : <=0.2. The reference r corey was not used to int erpret this result as normal/abnormal . [facility] DistrictLjsuiiqEBKDTNTZLQ4364-70-45 10:40:00 Test Item Value Reference Range Interpretation Comments Segs (test code = Segs) 76.0 45.0-75.0 H [facility] DistrictVzzvsmwMTHOTSZICA8556-28-38 10:40:00 Test Item Value Reference Range Interpretation Comments Lymphocytes (test code = Lymphocytes) 12.2 20.0-40.0 L [facility] DistrictRxvlulhEKTWQAOILK0078-76-21 10:40:00 Test Item Value Reference Range Interpretation Comments Segs-Bands # (test code = Segs-Bands #) 4.6 1.5-8.1 N [facility] DistrictGyjtaocZUWLARZVQA2313-41-99 10:40:00 Test Item Value Reference Range Interpretation Comments Basophils (test code = 0.5 See_Comment N [Aut omated message] The Basophils) system which ge nerated this result tra nsmitted reference range : <=1.0. The reference r corey was not used to int erpret this result as normal/abnormal . [facility] DistrictFmdnuzvQBRADLNUCB3970-82-32 10:40:00 Test Item Value Reference Range Interpretation Comments RDW (test code = RDW) 13.1 11.5-14.5 N [facility] DistrictAakhyatPCESWIXDVH9720-88-03 10:40:00 Test Item Value Reference Range Interpretation Comments MPV (test code = MPV) 8.3 7.4-10.4 N [facility] DistrictQqowiruGQASXTNUCP3301-36-11 10:40:00 Test Item Value Reference Range Interpretation Comments WBC (test code = WBC) 6.0 3.7-10.4 N [facility] DistrictSssfwzaSFYQTDEJLW9884-09-72 10:40:00 Test Item Value Reference Range Interpretation Comments Hct (test code = Hct) 35.6 42.0-54.0 L [facility] DistrictEliavuoIQCGNTKFRN3035-67-87 10:40:00 Test Item Value Reference Range Interpretation Comments RBC (test code = RBC) 3.68 4.70-6.10 L [facility] DistrictNithewaURAPOXCWQF9915-33-48 10:40:00 Test Item Value Reference Range Interpretation Comments Hgb (test code = Hgb) 12.3 14.0-18.0 L [facility] DistrictMrpwoeyMJLCTFIVLI8578-48-32 10:40:00 Test Item Value Reference Range Interpretation Comments MCV (test code = MCV) 96.8 80.0-94.0 H [facility] DistrictVjcjxmmZDJKQWYXKL2652-51-90 10:40:00 Test Item Value Reference Range Interpretation Comments MCH (test code = MCH) 33.5 pg 27.0-31.0 H [facility] DistrictNrdavnmPLMSAYRQCO5837-59-08 10:40:00 Test Item Value Reference Range Interpretation Comments MCHC (test code = MCHC) 34.6 32.0-36.0 N [facility] DistrictPobdmiuFJWMPFVMGA4713-54-52 10:40:00 Test Item Value Reference Range Interpretation Comments Platelet (test code = Platelet) 108 133-450 L [facility] ClubSrynstvPDIPQSQJY0378-46-53 10:40:00 Test Item Value Reference Range Interpretation Comments AGAP (test code = AGAP) 18.8 10.0-20.0 N [facility] ClubImyatxiBPZSDKJVU3146-93-54 10:40:00 Test Item Value Reference Range Interpretation Comments eGFR (test code = eGFR) 49 [facility] ClubVnutnqeDJTFKYRHL2757-88-34 10:40:00 Test Item Value Reference Range Interpretation Comments Creatinine Lvl (test code = Creatinine 1.4 0.5-1.4 N Lvl) [facility] ClubIqbfzetRDMRJFTCG4861-61-27 10:40:00 Test Item Value Reference Range Interpretation Comments Glucose Lvl (test code = Glucose Lvl) 143 70-99 H [facility] ClubRxchehvJMPUXREAE8255-60-03 10:40:00 Test Item Value Reference Range Interpretation Comments BUN (test code = BUN) 7 7-22 N [facility] ClubGyyvtgoEQTWXIYHE5899-67-02 10:40:00 Test Item Value Reference Range Interpretation Comments CO2 (test code = CO2) 27 24-32 N [facility] ClubAkobndjMTYWHUVHJ9810-62-53 10:40:00 Test Item Value Reference Range Interpretation Comments Calcium Lvl (test code = Calcium Lvl) 8.3 8.5-10.5 L [facility] ClubLhuwfxlKAWRDBKMG4903-87-55 10:40:00 Test Item Value Reference Range Interpretation Comments Sodium Lvl (test code = Sodium Lvl) 144 135-145 N [facility] ClubDtmgntkEEJYCLVRL6869-72-14 10:40:00 Test Item Value Reference Range Interpretation Comments Potassium Lvl (test code = Potassium 3.8 3.5-5.1 N Lvl) [facility] ClubIhqynrpJVFGLPPNT3599-20-37 10:40:00 Test Item Value Reference Range Interpretation Comments Chloride Lvl (test code = Chloride Lvl) 102 95-109 N [facility] DistrictUrirbbxQNKTWIIEQP1796-01-18 10:40:00 Test Item Value Reference Range Interpretation Comments Lymphocytes # (test code = Lymphocytes 0.7 1.0-5.5 L #) [facility] DistrictZfiqljuBSSBTTORYL2719-81-37 10:40:00 Test Item Value Reference Range Interpretation Comments Monocytes # (test code 0.5 See_Comment N [Aut omated message] The = Monocytes #) system which generated this result tra nsmitted reference range : <=0.8. The reference r corey was not used to int erpret this result as normal/abnormal . [facility] DistrictKgfchrqPMABGCLWPW4652-16-00 10:40:00 Test Item Value Reference Range Interpretation Comments Monocytes (test code = Monocytes) 9.0 2.0-12.0 N [facility] DistrictXcgaqreDIGPVXGUPF2878-85-38 10:40:00 Test Item Value Reference Range Interpretation Comments Eosinophils (test code = 2.3 See_Comment N [A utomated message] The Eosinophils) system which ge nerated this result tra nsmitted reference range : <=4.0. The reference r corey was not used to int erpret this result as normal/abnormal . [facility] DistrictGadxtfbMZPVPETYKZ3844-14-25 10:40:00 Test Item Value Reference Range Interpretation Comments Eosinophils # (test code 0.1 See_Comment N [A utomated message] The = Eosinophils #) system whic h generated this result tra nsmitted reference range : <=0.5. The reference r corey was not used to int erpret this result as normal/abnormal . [facility] DistrictPzwajwmEWKTVHMTJG1186-71-93 10:40:00 Test Item Value Reference Range Interpretation Comments Basophils # (test code 0.0 See_Comment N [Aut omated message] The = Basophils #) system which generated this result tra nsmitted reference range : <=0.2. The reference r corey was not used to int erpret this result as normal/abnormal . [facility] DistrictLuhtmrjQJRWTLDIGR9033-93-67 10:40:00 Test Item Value Reference Range Interpretation Comments Segs (test code = Segs) 76.0 45.0-75.0 H [facility] DistrictDhbpcmxFMQNWTBBBC7962-71-38 10:40:00 Test Item Value Reference Range Interpretation Comments Lymphocytes (test code = Lymphocytes) 12.2 20.0-40.0 L [facility] DistrictEkeadgzUIJYXTEMCT3120-47-88 10:40:00 Test Item Value Reference Range Interpretation Comments Segs-Bands # (test code = Segs-Bands #) 4.6 1.5-8.1 N [facility] DistrictNbtljgeVCRRQEZBTQ0390-04-27 10:40:00 Test Item Value Reference Range Interpretation Comments Basophils (test code = 0.5 See_Comment N [Aut omated message] The Basophils) system which ge nerated this result tra nsmitted reference range : <=1.0. The reference r corey was not used to int erpret this result as normal/abnormal . [facility] DistrictXqnnysiOUSWYAKNBD9391-59-50 10:40:00 Test Item Value Reference Range Interpretation Comments RDW (test code = RDW) 13.1 11.5-14.5 N [facility] DistrictWovroehEOSCOCRQJZ2192-86-65 10:40:00 Test Item Value Reference Range Interpretation Comments MPV (test code = MPV) 8.3 7.4-10.4 N [facility] DistrictWdbpwqaBSPQMZQOBH2985-41-39 10:40:00 Test Item Value Reference Range Interpretation Comments WBC (test code = WBC) 6.0 3.7-10.4 N [facility] DistrictLcalmhaXTHAJVGMPT7028-20-16 10:40:00 Test Item Value Reference Range Interpretation Comments Hct (test code = Hct) 35.6 42.0-54.0 L [facility] DistrictPggwjiiYEDTDYGXSS0260-83-48 10:40:00 Test Item Value Reference Range Interpretation Comments RBC (test code = RBC) 3.68 4.70-6.10 L [facility] DistrictRxcrptuJMRHJPWRHM5575-78-87 10:40:00 Test Item Value Reference Range Interpretation Comments Hgb (test code = Hgb) 12.3 14.0-18.0 L [facility] DistrictWhnybydEYELHYOJRO3538-30-58 10:40:00 Test Item Value Reference Range Interpretation Comments MCV (test code = MCV) 96.8 80.0-94.0 H [facility] DistrictNpcmappTNEVOLHMFM8158-77-91 10:40:00 Test Item Value Reference Range Interpretation Comments MCH (test code = MCH) 33.5 pg 27.0-31.0 H [facility] DistrictFazypxyVUCAXULRJD4867-12-42 10:40:00 Test Item Value Reference Range Interpretation Comments MCHC (test code = MCHC) 34.6 32.0-36.0 N [facility] DistrictFtrvrsvSHYNIPFBKO0843-28-66 10:40:00 Test Item Value Reference Range Interpretation Comments Platelet (test code = Platelet) 108 133-450 L [facility] ClubVmmwuyzQXCAZDUVG3365-88-19 14:35:00 Test Item Value Reference Range Interpretation Comments AGAP (test code = AGAP) 15.1 10.0-20.0 N [facility] ClubCbzwodzKGYUTUMKM4210-93-17 14:35:00 Test Item Value Reference Range Interpretation Comments eGFR (test code = eGFR) 42 [facility] ClubNdrnkewJXTYGVRTX7140-66-43 14:35:00 Test Item Value Reference Range Interpretation Comments Calcium Lvl (test code = Calcium Lvl) 8.0 8.5-10.5 L [facility] ClubUvoclnpGSGKHYXBG5398-89-14 14:35:00 Test Item Value Reference Range Interpretation Comments Chloride Lvl (test code = Chloride Lvl) 106 95-109 N [facility] ClubEjenjwuTGCRSKXGH6920-05-94 14:35:00 Test Item Value Reference Range Interpretation Comments CO2 (test code = CO2) 27 24-32 N [facility] ClubTyfvwizGHCZLVFGA2908-95-68 14:35:00 Test Item Value Reference Range Interpretation Comments Glucose Lvl (test code = Glucose Lvl) 140 70-99 H [facility] ClubFqcsxzpQZXIILHHV8565-13-80 14:35:00 Test Item Value Reference Range Interpretation Comments BUN (test code = BUN) 10 7-22 N [facility] ClubAhjmfnsKJFLAQTZY5479-98-94 14:35:00 Test Item Value Reference Range Interpretation Comments Potassium Lvl (test code = Potassium 4.1 3.5-5.1 N Lvl) [facility] ClubJjffthjQPKVFIPUR5863-04-26 14:35:00 Test Item Value Reference Range Interpretation Comments Sodium Lvl (test code = Sodium Lvl) 144 135-145 N [facility] ClubApopsjoMOMOODEMC2260-38-04 14:35:00 Test Item Value Reference Range Interpretation Comments Creatinine Lvl (test code = Creatinine 1.6 0.5-1.4 H Lvl) [facility] DistrictYbaqrdiTIEZQMFDGI1197-01-03 14:35:00 Test Item Value Reference Range Interpretation Comments Basophils # (test code 0.1 See_Comment N [Aut omated message] The = Basophils #) system which generated this result tra nsmitted reference range : <=0.2. The reference r corey was not used to int erpret this result as normal/abnormal . [facility] DistrictJgojuylJOIWEHTWCI6163-07-47 14:35:00 Test Item Value Reference Range Interpretation Comments Segs (test code = Segs) 73.2 45.0-75.0 N [facility] DistrictGauqudySTGOHMTSRE5858-91-94 14:35:00 Test Item Value Reference Range Interpretation Comments Eosinophils (test code = 2.4 See_Comment N [A utomated message] The Eosinophils) system which ge nerated this result tra nsmitted reference range : <=4.0. The reference r corey was not used to int erpret this result as normal/abnormal . [facility] DistrictBtqkyowXMWWCKQEOM1407-67-83 14:35:00 Test Item Value Reference Range Interpretation Comments Lymphocytes (test code = Lymphocytes) 13.7 20.0-40.0 L [facility] DistrictUuhnznqICITTBKUNT0686-54-55 14:35:00 Test Item Value Reference Range Interpretation Comments Monocytes (test code = Monocytes) 9.8 2.0-12.0 N [facility] DistrictZdpqpvmBZKNCMNBFD1936-06-02 14:35:00 Test Item Value Reference Range Interpretation Comments Eosinophils # (test code 0.1 See_Comment N [A utomated message] The = Eosinophils #) system whic h generated this result tra nsmitted reference range : <=0.5. The reference r corey was not used to int erpret this result as normal/abnormal . [facility] DistrictLovivizUNNZTCXNXB1907-89-57 14:35:00 Test Item Value Reference Range Interpretation Comments Monocytes # (test code 0.6 See_Comment N [Aut omated message] The = Monocytes #) system which generated this result tra nsmitted reference range : <=0.8. The reference r corey was not used to int erpret this result as normal/abnormal . [facility] DistrictHpsyhjhUHMRXHOVQA4967-13-62 14:35:00 Test Item Value Reference Range Interpretation Comments Lymphocytes # (test code = Lymphocytes 0.8 1.0-5.5 L #) [facility] DistrictTclqvvdKLAZBUUWZZ5888-13-28 14:35:00 Test Item Value Reference Range Interpretation Comments Segs-Bands # (test code = Segs-Bands #) 4.2 1.5-8.1 N [facility] DistrictRskchnlJLVTTRRMIU7299-69-05 14:35:00 Test Item Value Reference Range Interpretation Comments Basophils (test code = 0.9 See_Comment N [Aut omated message] The Basophils) system which ge nerated this result tra nsmitted reference range : <=1.0. The reference r corey was not used to int erpret this result as normal/abnormal . [facility] DistrictYfdrrpfJNGYFWECGC8104-24-20 14:35:00 Test Item Value Reference Range Interpretation Comments Platelet (test code = Platelet) 116 133-450 L [facility] DistrictCkkkqutZBYHWPJYTR5536-19-91 14:35:00 Test Item Value Reference Range Interpretation Comments RDW (test code = RDW) 14.2 11.5-14.5 N [facility] DistrictYykeijcPDCPOJLYKI7373-26-72 14:35:00 Test Item Value Reference Range Interpretation Comments MPV (test code = MPV) 7.7 7.4-10.4 N [facility] DistrictBlyknbqZVSTJMQJJF5389-81-55 14:35:00 Test Item Value Reference Range Interpretation Comments Hct (test code = Hct) 33.5 42.0-54.0 L [facility] DistrictKnsuunbSDMNEPOLPQ6455-28-72 14:35:00 Test Item Value Reference Range Interpretation Comments MCV (test code = MCV) 95.6 80.0-94.0 H [facility] DistrictUmgwnmmKOIFKMWNDQ9409-76-72 14:35:00 Test Item Value Reference Range Interpretation Comments MCHC (test code = MCHC) 34.3 32.0-36.0 N [facility] DistrictJcxkvydXHOHYKWJGU3247-64-23 14:35:00 Test Item Value Reference Range Interpretation Comments MCH (test code = MCH) 32.8 pg 27.0-31.0 H [facility] DistrictDfvksueZRRWFYWFVG4130-84-47 14:35:00 Test Item Value Reference Range Interpretation Comments Hgb (test code = Hgb) 11.5 14.0-18.0 L [facility] DistrictRlgeeofEDHWAUIBFF7176-75-66 14:35:00 Test Item Value Reference Range Interpretation Comments RBC (test code = RBC) 3.51 4.70-6.10 L [facility] DistrictMtzwzqmODCOPMVUCS9541-12-06 14:35:00 Test Item Value Reference Range Interpretation Comments WBC (test code = WBC) 5.8 3.7-10.4 N [facility] ClubFqnoslfOQTTIGSFH9160-05-54 14:35:00 Test Item Value Reference Range Interpretation Comments AGAP (test code = AGAP) 15.1 10.0-20.0 N [facility] ClubDybxuhjHQQEPRCCA2794-71-31 14:35:00 Test Item Value Reference Range Interpretation Comments eGFR (test code = eGFR) 42 [facility] [facility] [id number] 14:35:00 Test Item Value Reference Range Interpretation Comments Calcium Lvl (test code = Calcium Lvl) 8.0 8.5-10.5 L [facility] [id number] 14:35:00 Test Item Value Reference Range Interpretation Comments Chloride Lvl (test code = Chloride Lvl) 106 95-109 N [facility] ClubBlezywmULWFLOTVF0214-67-36 14:35:00 Test Item Value Reference Range Interpretation Comments CO2 (test code = CO2) 27 24-32 N [facility] C[id number] 14:35:00 Test Item Value Reference Range Interpretation Comments Glucose Lvl (test code = Glucose Lvl) 140 70-99 H [facility] ClubCntzixiDFKGJEHNL8795-22-81 14:35:00 Test Item Value Reference Range Interpretation Comments BUN (test code = BUN) 10 7-22 N [facility] C[id number] 14:35:00 Test Item Value Reference Range Interpretation Comments Potassium Lvl (test code = Potassium 4.1 3.5-5.1 N Lvl) [facility] [id number] 14:35:00 Test Item Value Reference Range Interpretation Comments Sodium Lvl (test code = Sodium Lvl) 144 135-145 N [facility] Club[id number] 14:35:00 Test Item Value Reference Range Interpretation Comments Creatinine Lvl (test code = Creatinine 1.6 0.5-1.4 H Lvl) [id number] 14:35:00 Test Item Value Reference Range Interpretation Comments Basophils # (test code 0.1 See_Comment N [Aut omated message] The = Basophils #) system which generated this result tra nsmitted reference range : <=0.2. The reference r corey was not used to int erpret this result as normal/abnormal . [facility] Di[id number] 14:35:00 Test Item Value Reference Range Interpretation Comments Segs (test code = Segs) 73.2 45.0-75.0 N [facility] DistrictR[id number] 14:35:00 Test Item Value Reference Range Interpretation Comments Eosinophils (test code = 2.4 See_Comment N [A utomated message] The Eosinophils) system which ge nerated this result tra nsmitted reference range : <=4.0. The reference r corey was not used to int erpret this result as normal/abnormal . [facility] DistrictQrpeopuYNSBTFFTEM7074-61-71 14:35:00 Test Item Value Reference Range Interpretation Comments Lymphocytes (test code = Lymphocytes) 13.7 20.0-40.0 L [facility] DistrictEynoiumNKMGINNEAQ6028-09-60 14:35:00 Test Item Value Reference Range Interpretation Comments Monocytes (test code = Monocytes) 9.8 2.0-12.0 N [facility] DistrictSnfntuvHMOTTVDZRM0403-28-64 14:35:00 Test Item Value Reference Range Interpretation Comments Eosinophils # (test code 0.1 See_Comment N [A utomated message] The = Eosinophils #) system whic h generated this result tra nsmitted reference range : <=0.5. The reference r corey was not used to int erpret this result as normal/abnormal . [facility] Distri[id number] 14:35:00 Test Item Value Reference Range Interpretation Comments Monocytes # (test code 0.6 See_Comment N [Aut omated message] The = Monocytes #) system which generated this result tra nsmitted reference range : <=0.8. The reference r corey was not used to int erpret this result as normal/abnormal . [facility] DistrictCdwcureAEMIMMBFFT4827-65-55 14:35:00 Test Item Value Reference Range Interpretation Comments Lymphocytes # (test code = Lymphocytes 0.8 1.0-5.5 L #) [facility] Distri[id number] 14:35:00 Test Item Value Reference Range Interpretation Comments Segs-Bands # (test code = Segs-Bands #) 4.2 1.5-8.1 N [facility] DistrictL[id number] 14:35:00 Test Item Value Reference Range Interpretation Comments Basophils (test code = 0.9 See_Comment N [Aut omated message] The Basophils) system which ge nerated this result tra nsmitted reference range : <=1.0. The reference r corey was not used to int erpret this result as normal/abnormal . [facility] D[id number] 14:35:00 Test Item Value Reference Range Interpretation Comments Platelet (test code = Platelet) 116 133-450 L [facility] DistrictYiydlwgCXTCZEFFYS7467-42-17 14:35:00 Test Item Value Reference Range Interpretation Comments RDW (test code = RDW) 14.2 11.5-14.5 N [facility] DistrictDgeboqzGTWVVEFKID4388-79-96 14:35:00 Test Item Value Reference Range Interpretation Comments MPV (test code = MPV) 7.7 7.4-10.4 N [facility] DistrictIegelrhBAYHOWEVAU8939-17-31 14:35:00 Test Item Value Reference Range Interpretation Comments Hct (test code = Hct) 33.5 42.0-54.0 L [facility] DistrictIvywrkuKCFPNWFLGU3480-85-82 14:35:00 Test Item Value Reference Range Interpretation Comments MCV (test code = MCV) 95.6 80.0-94.0 H [facility] DistrictIcnzogbEZGGXDYCHH7412-91-18 14:35:00 Test Item Value Reference Range Interpretation Comments MCHC (test code = MCHC) 34.3 32.0-36.0 N [facility] DistrictWigapweDEMDPBZGTJ4483-96-94 14:35:00 Test Item Value Reference Range Interpretation Comments MCH (test code = MCH) 32.8 pg 27.0-31.0 H [facility] DistrictQasddnfXTNSFKQNIT4041-38-29 14:35:00 Test Item Value Reference Range Interpretation Comments Hgb (test code = Hgb) 11.5 14.0-18.0 L [facility] DistrictExescskORBNQCPSXK1281-45-57 14:35:00 Test Item Value Reference Range Interpretation Comments RBC (test code = RBC) 3.51 4.70-6.10 L [facility] Dis[id number] 14:35:00 Test Item Value Reference Range Interpretation Comments WBC (test code = WBC) 5.8 3.7-10.4 N [facility] [employer] [id number] 10:50:00 Test Item Value Reference Range Interpretation Comments ABO/Rh (test code = ABO/Rh) A POS [facility] [employer] [id number] 10:50:00 Test Item Value Reference Range Interpretation Comments Antibody Scrn (test Negative (03/03/2013 N code = Antibody Scrn) 05:50:00) [facility] BANK [id number] 10:50:00 Test Item Value Reference Range Interpretation Comments ABO/Rh (test code = ABO/Rh) A POS [facility] [id number] 10:50:00 Test Item Value Reference Range Interpretation Comments Antibody Scrn (test Negative (03/03/2013 N code = Antibody Scrn) 05:50:00) [facility] GLUCOSE [id number] 14:49:00 Test Item Value Reference Range Interpretation Comments Gluc POC [facility] (test code = Gluc POC 126 70-99 H [facility]) [facility] GLUCOSE [id number] 14:49:00 Test Item Value Reference Range Interpretation Comments Gluc POC Lifscn (test code = Gluc POC 126 70-99 H [facility]) [facility]
[2022-07-15] MEDS ORDERED: HYDROCODONE/APAP 10/325 TAB ONE (23:21)
[2022-07-15] MEDS ORDERED: DIAZEPAM 2 MG TABLET ONE (23:22)
[2022-07-15] MEDS ORDERED: KETOROLAC 30 MG/ML INJ ONE (23:25)
--- NOTE | 2022-07-16 00:30 | ER ---
Nurse's Notes [facility] Name: Demetrius Sarmiento Age: 82 yrs Sex: Male : 1940 Arrival Date: 07/15/2022 Time: 21:57 Bed 2 Private MD: Diagnosis: Lumbago with sciatica Presentation: 07/15 21:57 Chief complaint: EMS states: toned out to pt home due to mid back pain. Pt walked ld1 outside and sat outside waiting on EMS to arrive. Upon arrival to ER pt c/o chronic lower back pain, denies injury. Coronavirus screen: At this time, the client does not indicate any symptoms associated with coronavirus-19. Ebola Screen: No symptoms or risks identified at this time. Initial Sepsis Screen: Does the patient meet any 2 criteria? No. Patient's initial sepsis screen is negative. Does the patient have a suspected source of infection? No. Patient's initial sepsis screen is negative. Risk Assessment: Do you want to hurt yourself or someone else? Patient reports no desire to harm self or others. Onset of symptoms was July 15, 2022. 21:57 Method Of Arrival: EMS: [facility] ld1 21:57 Acuity: LANCE 3 ld1 Triage Assessment: 21:57 Musculoskeletal: Range of motion: intact in all extremities. ld1 21:59 General: Appears in no apparent distress. uncomfortable, Behavior is calm, cooperative, ld1 appropriate for age. Pain: Complains of pain in back Pain does not radiate. Pain currently is 10 out of 10 on a pain scale. Quality of pain is described as sharp, shooting, throbbing, Pain began years ago. Is continuous. EENT: No signs and/or symptoms were reported regarding the EENT system. Neuro: Level of Consciousness is awake, alert, obeys commands, Oriented to person, place, time, situation. Cardiovascular: Capillary refill < 3 seconds Patient's skin is warm and dry. Respiratory: Airway is patent Respiratory effort is even, unlabored. GI: Abdomen is flat, non-distended. : No signs and/or symptoms were reported regarding the genitourinary system. Derm: No signs and/or symptoms reported regarding the dermatologic system. Musculoskeletal: No signs and/or symptoms reported regarding the musculoskeletal system. Historical: - Allergies: 21:59 No Known Allergies; ld1 - PMHx: 21:59 Alzheimer's disease; CAD; diabetes mellitus; Hypercholesterolemia; Hypertensive ld1 disorder; sciatica; ID; - PSHx: 21:59 Nephrectomy; Nerve stimulator; ld1 - Immunization history:: Adult Immunizations up to date, Client reports having NOT received the Covid vaccine. - Social history:: Smoking status: Patient denies any tobacco usage or history of. Patient/guardian denies using alcohol. Screenin/31 00:51 Abuse screen: Denies threats or abuse. Nutritional screening: No deficits noted. vc1 Tuberculosis screening: No symptoms or risk factors identified. Fall Risk None identified. Assessment: 00:52 Reassessment: No changes from previously documented assessment. Patient and/or family vc1 updated on plan of care and expected duration. Pain level reassessed. Patient is alert, oriented x 3, equal unlabored respirations, skin warm/dry/pink. Neuro: Level of Consciousness is awake, alert, obeys commands, Oriented to person, place, time, situation, Appropriate for age. Vital Signs: 07/15 21:57 BP 106 / 64; Pulse 87; Resp 18; Temp 97.9(O); Pulse Ox 98% on R/A; Height 5 ft. 8 in. ld1 (172.72 cm); Pain 10/10; 23:03 BP 106 / 69; Pulse 86; Resp 18; Temp 98.6(O); Pulse Ox 100% on R/A; oe 07/16 00:52 BP 103 / 55; Pulse 88; Resp 18; Pulse Ox 94% ; vc1 ED Course: 07/15 21:57 Patient arrived in ED. ag3 21:57 Arm band placed on right wrist. ld1 21:59 Triage completed. ld1 22:55 Sg Mann RN is Primary Nurse. as6 22:56 Cosmo Cordero PA is PHCP. jmm 22:56 Michael Ortega MD is Attending Physician. solomonm 07/16 00:51 Patient has correct armband on for positive identification. Bed in low position. Call vc1 light in reach. 01:02 No provider procedures requiring assistance completed. IV discontinued, intact, vc1 bleeding controlled, No redness/swelling at site. Pressure dressing applied. Administered Medications: 07/15 23:15 Drug: [place] (HYDROcodone-acetaminophen) 10 mg-325 mg 1 tabs Route: PO; as6 23:15 Drug: Valium (diazepam) 2 mg Route: PO; as6 23:19 Drug: Ketorolac 30 mg Route: IVP; Site: right forearm; as6 Medication: 07/16 00:52 VIS not applicable for this client. vc1 Outcome: 00:30 Discharge ordered by . rohit 01:02 Discharged to home via wheelchair. vc1 01:02 Condition: good 01:02 Discharge instructions given to patient, Instructed on discharge instructions, follow up and referral plans. Demonstrated understanding of instructions, follow-up care. 01:02 Patient left the ED. vc1 Signatures: Cosmo Cordero PA PA jmm Espinosa, Orlando oe Gomez, Alice ag3 Danica Mckeon RN RN ld1 Sg Mann RN RN as6 Ana Maria Martínez RN RN vc1 Corrections: (The following items were deleted from the chart) 07/15 22:00 21:57 Chief complaint: EMS states: toned out to pt home due to mid back pain. Pt walked ld1 outside and sat outside waiting on EMS to arrive. Upon arrival to ER pt c/o lower back pain. ld1 22:00 21:57 BP 106 / 64; Pulse 87bpm; Resp 18bpm; Pulse Ox 98% RA; Temp 97.9F Oral; 83.91 kg; ld1 Height 5 ft. 8 in.; BMI: 28.1; Pain 10/10; ld1
--- NOTE | 2022-07-16 00:31 | EDPHYS ---
Physician Documentation [facility] Name: Demetrius Sarmiento Age: 82 yrs Sex: Male : 1940 Arrival Date: 07/15/2022 Time: 21:57 Bed 2 Private MD: ED Physician Michael Ortega HPI: 07/16 00:25 This 82 yrs old Male presents to ER via EMS with complaints of Back Pain. [facility] 00:25 The patient presents with pain that is chronic. The symptoms are located in the low jmm back. Onset: The symptoms/episode began/occurred at an unknown time. The pain radiates to the left leg. Associated signs and symptoms: Pertinent negatives: abdominal pain, fever, vomiting. Modifying factors: The patient symptoms are alleviated by nothing, the patient symptoms are aggravated by any movement. The patient has experienced similar episodes in the past, chronically. Historical: - Allergies: 07/15 21:59 No Known Allergies; ld1 - PMHx: 21:59 Alzheimer's disease; CAD; diabetes mellitus; Hypercholesterolemia; Hypertensive ld1 disorder; sciatica; RI; - PSHx: 21:59 Nephrectomy; Nerve stimulator; ld1 - Immunization history:: Adult Immunizations up to date, Client reports having NOT received the Covid vaccine. - Social history:: Smoking status: Patient denies any tobacco usage or history of. Patient/guardian denies using alcohol. ROS: 07/16 00:25 Constitutional: Negative for fever, chills, and weight loss, Cardiovascular: Negative jmm for chest pain, palpitations, and edema, Respiratory: Negative for shortness of breath, cough, wheezing, and pleuritic chest pain. Back: Positive for pain with movement. All other systems are negative. Exam: 00:25 Constitutional: This is a well developed, well nourished patient who is awake, alert, jmm and in no acute distress. Head/Face: atraumatic. Eyes: EOMI, no conjunctival erythema appreciated ENT: Moist Mucus Membranes Neck: Trachea midline, Supple Chest/axilla: Normal chest wall appearance and motion. Cardiovascular: Regular rate and rhythm. No edema appreciated Respiratory: Normal respirations, no respiratory distress appreciated Abdomen/GI: Non distended Back: Normal ROM Skin: General appearance color normal 00:25 Musculoskeletal/extremity: ROM: intact in all extremities. 00:25 Skin: Appearance: Color: normal in color. 00:25 Neuro: Orientation: is normal, Mentation: is normal, Memory: is normal. 00:25 Psych: Behavior/mood is pleasant, cooperative. Vital Signs: 07/15 21:57 BP 106 / 64; Pulse 87; Resp 18; Temp 97.9(O); Pulse Ox 98% on R/A; Height 5 ft. 8 in. ld1 (172.72 cm); Pain 08/25; 23:03 BP 106 / 69; Pulse 86; Resp 18; Temp 98.6(O); Pulse Ox 100% on R/A; oe 07/16 00:52 BP 103 / 55; Pulse 88; Resp 18; Pulse Ox 94% ; vc1 MDM: 07/15 22:58 Patient medically screened. tadeo 07/16 00:29 Data reviewed: vital signs, nurses notes. Counseling: I had a detailed discussion with rohit the patient and/or guardian regarding: the historical points, exam findings, and any diagnostic results supporting the discharge/admit diagnosis, the need for outpatient follow up, to return to the emergency department if symptoms worsen or persist or if there are any questions or concerns that arise at home. 00:29 ED course: Consistent with chronic pain. I do not currently suspect cauda equina or jmm cord compression syndrome. Patient advised follow-up with spine and otherwise given strict return precautions. Patient understood agrees plan of care.. Administered Medications: 07/15 23:15 Drug: [place] (HYDROcodone-acetaminophen) 10 mg-325 mg 1 tabs Route: PO; as6 23:15 Drug: Valium (diazepam) 2 mg Route: PO; as6 23:19 Drug: Ketorolac 30 mg Route: IVP; Site: right forearm; as6 Disposition Summary: 07/16/22 00:30 Discharge Ordered Location: Home [facility] Condition: Stable [facility] Diagnosis - Lumbago with sciatica [facility] Followup: rohit - With: Private Physician - When: 2 - 3 days - Reason: Recheck today's complaints, Continuance of care, Re-evaluation by your physician Discharge Instructions: - Discharge Summary Sheet rohit - Sciatica Rehab-[facility] Forms: - Medication Reconciliation Form [facility] - Thank You Letter rohit - Antibiotic Education rohit - Prescription Opioid Use jmm Signatures: Michael Ortega MD MD cha Mickail, Joel, PA PA jmm Dibbern, Lauren, RN RN ld1 Sg Mann RN RN as6 Corrections: (The following items were deleted from the chart) 07/16 00:26 00:25 The patient has not experienced similar symptoms in the past, rohit bee
[2022-07-16 01:33] VITALS: TEMP 98.6
[2022-07-16 01:39] VITALS: BP 103/55; O2SAT 94
== END 2022-07-16 01:02 | disposition home or self-care (01) ==
LOC: ER 21:55
DX: M54.40 Lumbago with sciatica, unspecified side (principal); G30.9 Alzheimer's disease, unspecified; F02.80 Dementia in other diseases classified elsewhere, unspecified severity, without behavioral disturbance, psychotic disturbance, mood disturbance, and anxiety; I10 Essential (primary) hypertension; I25.2 Old myocardial infarction

== ENCOUNTER 2022-08-07 10:03 | Emergency (ER) | payer OTHER ==
--- OUTSIDE RECORDS SUMMARY | 2022-08-07 10:31 | XMS REPORT | Continuity of Care Document ---
:1940 Author Organization [facility] t Address [address] [place] [address] Care Team Providers Name Role Phone Jono Costello MD Primary Care Physician Jim Baldwin Attending Clinician Unavailable Anneliese Batista Attending Clinician Unavailable SURAJ GUERRERO Attending Clinician Unavailable Suraj Vargas Attending Clinician Supa Maria RN Attending Clinician Unavailable EVE RAE Attending Clinician Unavailable Ric Chidlers DO Attending Clinician Eve Rae DO Attending Clinician Isatu Silva RN Attending Clinician Unavailable PERFECTO GARNICA Attending Clinician Unavailable PERFECTO GARNICA Attending Clinician Unavailable Davis Fam MD Attending Clinician Daisha Wayne MD Attending Clinician Mara Lama DO Attending Clinician Sonny Garcia DO Attending Clinician LUZ ANDREWS Attending Clinician Unavailable Luz Medina S Attending Clinician BRODIE RIVREA Attending Clinician Unavailable Brodie Rivera Attending Clinician ANGELIKA AGUILAR Attending Clinician Unavailable Angelika Aguilar DO Attending Clinician Jono Costello MD Attending Clinician Jayson Aguilar MD Attending Clinician MD JAYSON AGUILAR Attending Clinician Unavailable Doctor Unassigned, [place] Attending Clinician Unavailable AIDA SHAH Attending Clinician Unavailable Martha Drake MD Attending Clinician Aida Shah MD Attending Clinician Pcp, Patient Does Not Have A Attending Clinician [phone] Nallely Meeks Attending Clinician Charanjit Heck MD Attending Clinician Jamel Flores MD Attending Clinician Ariel STONER, Sherrell Attending Clinician Babar BASE LOADER, Sallie Attending Clinician JAMEL FLORES Attending Clinician Unavailable Kamryn GONG, Myles Herrera Attending Clinician MYLES HARRY Attending Clinician Unavailable Rajrenu_P Attending Clinician Unavailable Silvina STONER, Prema Bryant Attending Clinician Kyree WOOTEN, Sarah Attending Clinician SARAH HARRELL Attending [...] Number Effective Date Expiration Date Stacy torres [facility] [id number] 2020 00:00:00 [facility] [id number] 2019 DUAL COMPLETE HMO 00:00:00 [place]ICAID [place] [id number] 2018 00:00:00 Problems Condition Condition Condition Status Onset Resolution Last Treating Co mments Source Name Details Category Date Date Treatment Clinician Date 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 7-21 it y of d severe d severe 00:00: [place] protein-ca protein-ca 00 Me dical sindhu sindhu Branch malnutriti malnutriti on on Dyslipidem Dyslipidem Disease Active U nivers ia ia 7-20 ity of 00:00: [place] [address] Medical Branch Elevated Elevated Disease Active Unive [...] rs troponin troponin 7-19 ity of 00:00: [place] [address] Medical Branch Left hip Left hip Disease Active Unive rs pain pain 7-09 ity of 00:00: [place] [address] Medical Branch STEMI STEMI Diagnosis Active 2022-03-18 Mem oria Active 420 21:49:00 l 03/05/2022 00:00: Titus calderon [address] Unstable Unstable Disease Active 2019-0 Unive rs angina angina 5-07 ity of 00:00: [place] [address] Medical Branch ALBA (acute ALBA (acute Disease Active 2020-0 U nivers kidney kidney 4-21 ity of injury) injury) 00:00: [place] [address] Medical Branch Chest pain Chest pain Disease Active 2020-0 U nivers 4-21 ity of 00:00: [place] [address] Medical Branch Chest pain Chest pain Disease Active 2020-0 U 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 4-15 it y of 00:00: [place] [address] Medical Branch 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 3-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 00:00: [place] and and 00 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 Chest pain Chest pain Disease Active 2018-11 M ethodi 1-09 st 00:00: [facility]osp[facility] 00 l Left lower Left lower Disease Active 2018-11 U nivers lobe lobe 1-06 ity of pneumonia [facility] PNA PNA Disease Active 2018-11 Univers (pneumonia (pneumonia 0-25 it y of ) ) 00:00: [place] 00 Medical Branch Acute on Acute on Disease Active 2018-11 Unive rs chronic chronic 0-25 ity of combined combined 00:00: [place] systolic systolic 00 Medica l and and Branch 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 Dyspnea Dyspnea Disease Active 2018-11 Univers 0-23 ity of 00:00: [place] 00 Medical Branch CHF CHF Disease Active Univers exacerbati exacerbati 2-17 it y of on on 00:00: [place] 00 Medical Branch Essential Essential Disease Active Uni vers hypertensi hypertensi 2-17 it y of on on 00:00: [place] 00 Medical Branch 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 00:00: [place] without without 00 Medical complicati complicati Br anch on, on, without without long-term long-term current current use of use of insulin insulin CHF CHF Disease Active Univers exacerbati exacerbati 2-17 it y of on on 00:00: [place] 00 Medical Branch Acute on Acute on [...] 1-27 it y of level level 00:00: [place] 00 Medical Branch DE LA CRUZ DE LA CRUZ Disease Active Univers (dyspnea (dyspnea 1-27 ity of on on 00:00: [place] exertion) exertion) 00 Medi birdie Branch Coronary Coronary Disease Active Unive rs artery artery 1-27 ity of disease disease 00:00: [place] involving involving 00 Medi birdie [place] Branch coronary 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[place] 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 00:00: [place] disease disease 00 Medical Branch Coronary Coronary Disease Active Unive rs artery artery 1-27 ity of disease disease 00:00: [place] involving involving 00 Medi birdie [place] Branch coronary 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[place] heart heart without without angina angina pectoris [...] 10:52:00 l Active 00:00: [place] 02/04/2013 00 [facility] 569.3 569.3 Diagnosis Active 2013-02-03 Mem oria Active 01-24 09:00:00 l 01/24/2013 00:00: Titus calderon [address] Sleep Sleep Problem Resolve 2022-03-12 Manjit greg apnea apnea d 23:51:00 l (finding) (finding) Herm kathy Resolved Problem 03/12/2022 [facility] Diabetes Diabetes Problem Active 2022-03-12 Memoria mellitus mellitus 23:51:00 l (disorder) (disorder) He rmann Active Problem 03/12/2022 [facility] Chronic Chronic Problem Active 2022-03-12 M emoria back pain back pain 23:51:00 l (disorder) (disorder) He rmann Active Problem 03/12/2022 [facility] Continuous Continuou Problem Active 2022-03-12 Memoria 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:51: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 He rmann (disorder) (disorder) Active Problem 03/12/2022 [facility] Datatype(D Datatype( Diagnosis Active 2013-02-03 Memoria G1.4)- DG1.4)- 09:00:00 l Active Titus [facility] Datatype(D Datatype( Diagnosis Active 2013-03-04 Memoria G1.4)- DG1.4)- 10:52:00 l Active [facility] DM DM Problem Resolve 2013-03-09 Manjit greg (diabetes (diabetes d 20:26:01 l mellitus) mellitus) Herm kathy Resolved Problem 03/09/2013 [facility] Heart Heart Problem Resolve 2013-03-09 Manjit greg attack attack d 20:26:01 l Resolved [place] Problem 03/09/2013 [facility] HTN HTN Problem Resolve 2013-03-09 Manjit greg Resolved d 20:26:01 l Problem [place] 03/09/2013 [facility] Sleep Sleep Problem Resolve 2013-03-09 Manjit greg apnea apnea d 20:26:01 l Resolved [place] Problem 03/09/2013 [facility] Acute Acute Problem Resolve 2022-03-12 Mem oria myocardial myocardial d 23:51:00 l infarction infarction He rmann (disorder) (disorder) Resolved Problem 03/12/2022 [facility] Allergies, Adverse Reactions, Alerts Allergy Allergy Status Severity Reaction(s) Onset Inactive Treating Comm ents Source Name Type Date Date Clinician No Known DA Active U [facility] Allergie 1- Clear s 00:00: Boy[place] 00 [facility] NO KNOWN Drug Active Univers ALLERGIE Class ity of [facility] [place] [facility] Family History Family Member Diagnosis Comments Start Date Stop Date Source Natural father Heart disease [facility] Natural father Seizures [facility] Natural mother Alzheimer's disease [facility] Natural mother Cancer [facility] Social History Social Habit Start Date Stop Date Quantity Comments Source History of tobacco User of Univer sity of use smokeless [facility] tobacco [place] Exposure to 2022-07-02 2022-07-12 Not sure [facility] SARS-CoV-2 (event) 00:00:00 00:32:00 [facility] Cigarette 2022-06-03 2022-06-03 University of pack-years 00:00:00 00:00:00 [facility] Alcohol intake 2021-12-25 2021-12-25 Current [employer] 00:00:00 00:00:00 non-drinker of Hospital alcohol (finding) Cigarettes smoked 2018-10-27 2018-10-27 [facility] current (pack per 00:00:00 00:00:00 Hospita l day) - Reported Tobacco use and 2018-10-27 2018-10-27 Smokeless [employer] exposure 00:00:00 00:00:00 tobacco non-user [facility] Sex Assigned At [birth year] [employer] 00:00:00 00:00:00 Hospital Smoking Status Start Date Stop Date Source Ex-smoker 2018-10-27 00:00:00 2018-10-27 00:00:00 [facility] Medications Ordered Filled Start Stop Current Ordering Indication Dosage Frequency Signature Comments Components Source Medication Medication Date Date Medication? Clinician (SIG) Name Name acetaminoph 1000mg 1,000 mg, Univers en 07-12 Oral, ity of (TYLENOL) 06:45: 05:37 ONCE, 1 [place] tablet 00 :00 dose, On Medical 1,000 mg Sat [place] 07/12/22 at 0145, Routine aspirin 81 Yes 81mg Take 1 Unive rs mg EC 7-27 tablet by ity of tablet 00:00: mouth in [place] 00 the Medical morning. Branch metoprolol Yes 25mg Take 1 Unive rs succinate 7-27 tablet by ity o f XL 25 mg 24 00:00: mouth [place] hr tablet 00 the Medical morning. Branch spironolact 2022-0 Yes 12.5mg Take 0.5 Univers one 25 mg 7-27 tablets by ity of tablet 00:00: mouth in [place] 00 the Medical morning. Branch aspirin 81 2021-0 Yes 81mg Take 1 Unive rs mg EC 7-27 tablet by ity of tablet 00:00: mouth in [place] 00 the Medical morning. Branch metoprolol 2021-0 Yes 25mg Take 1 Unive rs succinate 7-27 tablet by ity o f XL 25 mg 24 00:00: mouth in [place] hr tablet 00 the Medical morning. Branch spironolact 2021-0 Yes 12.5mg Take 0.5 Univers one 25 mg 7-27 tablets by ity of tablet 00:00: mouth in [place] 00 the Medical morning. Branch aspirin 81 2021-0 Yes 81mg Take 1 Unive rs mg EC 7-27 tablet by ity of tablet 00:00: mouth in [place] 00 the Medical morning. Branch metoprolol 2021-0 Yes 25mg Take 1 Unive rs succinate 7-27 tablet by ity o f XL 25 mg 24 00:00: mouth in [place] hr tablet 00 the Medical morning. Branch spironolact 0 Yes 12.5mg Take 0.5 Univers one 25 mg 7-27 tablets by ity of tablet 00:00: mouth in [place] 00 the Medical morning. Branch nitroglycer 2021- No .4mg Take 0.4 U nivers in 06-10 07-26 mg by ity of (NITRO-TIME 12:34: 00:00 mouth [place] ORAL) 19 :00 needed for Medical Other Branch (chest pain every 5 minutes x 3 doses). donepeziL 5 2021- No 5mg Take 5 mg Univers mg tablet 06-10- by mouth ity o f 12:34: 00:00 at [place] 19 :00 bedtime. Medical Branch atorvastati 2021-2021- No 40mg Take 40 mg Univers n 40 mg 06-10- by mouth ity of tablet 12:34: 00:00 at [place] 19 :00 bedtime. Medical Branch gabapentin 2021-0 2021- No 100mg Take 100 U nivers 300 mg 06-10-26 mg by ity of capsule 12:34: 00:00 mouth in [place] 19 :00 the Medical morning Branch and [...] by ity of tablet 00:00: mouth in [place] 00 the Medical morning Branch and 1 tablet at noon and 1 tablet in the evening. docusate 2021-0 Yes 100mg Take 1 Univer s 100 mg 7-26 capsule by ity of capsule 00:00: mouth in [place] 00 the Medical morning Branch and 1 capsule in the evening. atorvastati 2021-0 Yes 40mg Take 1 Univ ers n 40 mg 7-26 tablet by ity of tablet 00:00: mouth at [place] [address] bedtime. Medical Branch donepeziL 5 2021-0 Yes 5mg Take 1 Univ ers mg tablet - tablet by ity o f 00:00: mouth at [place] [address] bedtime. Medical Branch empaglifloz 2021-0 Yes 10mg Take 1 Univ ers in - tablet by ity of (JARDIANCE) 00:00: mouth in [place] 10 mg 00 the Medical morning. Branch furosemide 2021-0 Yes 20mg Take 1 Unive rs 20 mg - tablet by ity of tablet 00:00: mouth in [place] 00 the Medical morning. Branch HYDROcodone 2021-0 Yes 1{tbl} Take 1 Un mel -acetaminop 7-26 tablet by ity of hen 5-325 00:00: mouth [place] mg tablet 00 every 6 Medical (six) Branch hours as needed for Pain (scale 7-10). cyclobenzap 2021-0 Yes 10mg Take 1 Univ ers rine 10 mg 7-26 tablet by ity of tablet 00:00: mouth in [place] 00 the Medical morning Branch and 1 tablet at noon and 1 tablet in the evening. docusate 2021-0 Yes 100mg Take 1 Univer s 100 mg 7-26 capsule by ity of capsule 00:00: mouth in [place] 00 the Medical morning Branch and 1 capsule in the evening. atorvastati 2021-0 Yes 40mg Take 1 Univ ers n 40 mg 7-26 tablet by ity of tablet 00:00: mouth at [place] [address] bedtime. Medical Branch donepeziL 5 2021-0 Yes 5mg Take 1 Univ ers mg tablet 7-26 tablet by ity o f 00:00: mouth at [place] [address] bedtime. Medical Branch empaglifloz 2-0 Yes 10mg Take 1 Univ ers in 7-26 tablet by ity of (JARDIANCE) 00:00: mouth in [place] 10 mg 00 the Medical morning. Branch furosemide 2-0 Yes 20mg Take 1 Unive rs 20 mg 7-26 tablet by ity of tablet 00:00: mouth in [place] 00 the Medical morning. Branch HYDROcodone 2021-0 Yes 1{tbl} Take 1 Un mel -acetaminop 7-26 tablet by ity of hen 5-325 00:00: mouth [place] mg tablet 00 every 6 Medical (six) Branch hours as needed for Pain (scale 7-10). cyclobenzap 2021-0 Yes 10mg Take 1 Univ ers rine 10 mg 7-26 tablet by ity of tablet 00:00: mouth in [place] 00 the Medical morning Branch and 1 tablet at noon and 1 tablet in the evening. docusate 2022-0 Yes 100mg Take 1 Univer s 100 mg 7-26 capsule by ity of capsule 00:00: mouth in [place] 00 the Medical morning Branch and 1 capsule in the evening. atorvastati 2-0 Yes 40mg Take 1 Univ ers n 40 mg 7-26 tablet by ity of tablet 00:00: mouth at [place] [address] bedtime. Medical Branch donepeziL 5 2021-0 Yes 5mg Take 1 Univ ers mg tablet 7-26 tablet by ity o f 00:00: mouth at [place] [address] bedtime. Medical Branch empaglifloz 2-0 Yes 10mg Take 1 Univ ers in 7-26 tablet by ity of (JARDIANCE) 00:00: mouth in [place] 10 mg 00 the Medical morning. Branch furosemide 2-0 Yes 20mg Take 1 Unive rs 20 mg 7-26 tablet by ity of tablet 00:00: mouth in [place] 00 the Medical morning. Branch HYDROcodone 2-0 Yes 1{tbl} Take 1 Un mel -acetaminop 7-26 tablet by ity of hen 5-325 00:00: mouth [place] mg tablet 00 every 6 Medical (six) Branch hours as needed for Pain (scale 7-10). cyclobenzap Yes 10mg 10 mg, Univ ers rine 7-25 Oral, TID, ity of (FLEXERIL) 19:00: First dose [place] tablet 10 00 on [facility] Medical mg 06/09/22 at Branch 1400, Until Discontinu ed, Routine aspirin EC Yes 81mg 81 mg, Unive rs tablet 81 06-09 Oral, ity of mg 14:00: DAILY, [place] 00 First dose Medical on Thu06/09/22 at 0900, Until Discontinu ed, Routine NaCl 0.9% 2021- No 500mL at 50 Unive rs (NS) IV 06-08-24 mL/hr, IV ity of infusion 21:45: 21:06 Infusion, [place] 500 mL 00 :00 ONCE, 1 Medical dose, On [facility] 06/08/22 at 1645, Routine Sliding Yes Subcutaneo Univ ers Scale 7-24 us, Q4H, ity of Insulin - 20:00: First dose [place] Lispro [address] [facility] (HumaLOG) + 06/08/22 at Br anch Fsbg 1500, Testing Until Discontinu ed, Routine metoprolol Yes 25mg 25 mg, Unive rs succinate 06-08 Oral, ity of XL (TOPROL 14:00: DAILY, [place] XL) tablet 00 First dose Med ical 25 mg (after Branch last modificati on) on [place] 06/08/22 at 0900, Until Discontinu ed, Routine [...] mg 00 :00 Starting Medical on Thu [place] 06/06/22 at 0000, Until 06/07/22 at 2359, [...] [place] mg 00 :00 [facility], [facility] at 0100, Routine donepeziL Yes 5mg 5 mg, Univers (ARICEPT) 06-05 Oral, QHS, ity of tablet 5 mg 02:00: First dose [place] 00 on [facility] Medical 06/04/22 at Branch 2100, Until Discontinu ed, Routine acetaminoph Yes 1000mg 1,000 mg, Univers en - Oral, Q8H, ity of (TYLENOL) 19:15: First dose [place] tablet 00 on Thu Medical 1,000 mg 06/04/22 at [facility] h 1415, Until Discontinu ed, Routine sulfur 2021- No [id number] 5mL 5 mL, Unive rs hexafluorid 06-04 Intravenou i ty of e microsphr 19:15: 19:15 s, ONCE, 1 [place] (LUMASON) 00 :00 dose, On Medica l injection 5 Thu Branch mL 06/04/22 at 1415, Routine
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 Restricted medication : ALEXANDRA [...] First dose [place] mg 00 :04 on [facility] Medical 06/04/22 at Branch 0800, Until Discontinu ed, Routine Sliding 2021- No Subcutaneo Uni vers Scale 06-04 07-24 us, AC+HS, ity of Insulin-Reg 12:30: 19:58 First dose [place] ular + Fsbg 00 :14 on Thu [...] Oral, ity of (TYLENOL) 02:20: 19:06 Q[facility]HPRN, [facility] 01 :54 Starting Medic al mg on Thu Branch 06/03/22 at 2120, Until Thu06/04/22 at 1406, Routine, Pain (scale 1-3) dextrose Yes 250mL 250 mL, IV Un mel 10% (D10W) 06-04 Infusion, ity of bolus 02:18: PRN - SEE [place] infusion 29 INSTRUCTIO Medic al 250 mL [...] KIT) 26 Starting Medical injection 1 on [facility] 06/03/22 at 2118, Until Discontinu ed, ADAMA, Blood Glucose < or = 70 mg/dL and patient is unable to swallow or has mental changes. gabapentin 0 Yes 100mg 100 mg, Uni vers (NEURONTIN) 06-04 Oral, TID, it y of capsule 100 02:15: First dose [place] mg 00 on [facility] 06/03/22 at Branch 2115, Until Discontinu ed, Routine atorvastati Yes 40mg 40 mg, Univ ers n (LIPITOR) 7-20 Oral, QHS, it y of tablet 40 02:15: First dose [place] mg 00 on [facility] 06/03/22 at Branch 2115, Until Discontinu ed, Routine QUEtiapine 0 Yes 25mg 25 mg, Unive rs (SEROQUEL) 06-04 Oral, ity of tablet 25 02:07: QHSPRN, [place] mg 11 Starting Medical on [facility] 06/03/22 at 2107, Until Discontinu ed, Routine, agitation/ insomnia traMADoL 2021-0 No 50mg 50 mg, Univer s (ULTRAM) 06-04 0721 Oral, ity of tablet 50 01:06: 22:16 Q8HPRN, [place] mg 10 :44 Starting Medical on [facility] 06/03/22 at 2006, Until Madhav[place] 06/05/22 at 1716, Routine, Pain (scale 4-6) morpHINE (4 No 4mg 4 mg, Slow Univers mg/mL) 06-03 IV Push, ity of injection 4 19:30: 18:37 ONCE, 1 [place] mg 00 :00 dose, On Medical [facility] Branch 06/03/22 at 1430, Routine metoprolol No 50mg 50 mg, Univ ers tartrate 06-03 Oral, ity of (LOPRESSOR) 18:45: 19:43 ONCE, 1 [place] tablet 50 00 :00 dose, On Medica l mg [facility] Branch 06/03/22 at 1345, Routine metoprolol No 5mg 5 mg, Slow Univers (LOPRESSOR) 06-03 IV Push, ity of injection 5 17:45: 17:40 ONCE, 1 [place] mg 00 :00 dose, On [facility] 06/03/22 at 1245, ADAMA FENTanyl PF No 100ug 100 mcg, Univers (SUBLIMAZE 06-03 Slow IV ity o f (PF)) 14:45: 14:47 Push, [place] injection 00 :00 ONCE, 1 Medical 100 mcg dose, On Branch [facility] 06/03/22 at 0945, Routine nitroglycer Yes .4mg Take 0.4 Un mel in 7-16 mg by ity of (NITRO-TIME 16:29: mouth as [place] ORAL) 51 needed for Medical Other Branch (chest pain every 5 minutes x 3 doses). donepeziL 5 Yes 5mg Take 5 mg U nivers mg tablet 7-16 by mouth ity of 16:29: at [place] [address] bedtime. Medical Branch atorvastati Yes 40mg Take 40 mg Univers n 40 mg 7-16 by mouth ity of tablet 16:29: at [place] [address] bedtime. Medical Branch gabapentin Yes 100mg Take 100 Un mel 300 mg 7-16 mg by ity of capsule 16:29: mouth in [place] [address] the Medical morning Branch and 100 mg [...] 7-16 by mouth ity of 16:29: at [place] [address] bedtime. Medical Branch atorvastati 0 Yes 40mg Take 40 mg Univers n 40 mg 7-16 by mouth ity of tablet 16:29: at [place] [address] bedtime. Medical Branch gabapentin Yes 100mg Take 100 Un mel 300 mg 7-16 mg by ity of capsule 16:29: mouth in [place] [address] the Medical morning Branch and 100 mg [...] by ity of tablet 00:00: mouth in [place] [address] the Medical morning. Branch lidocaine 5 0 Yes 3{patch Apply 3 Univers % (700 7-16 } Patches to ity of mg/patch) 00:00: area(s) in [place] patch 00 the Medical morning. Branch clopidogreL 0 Yes 75mg Take 1 Univ ers 75 mg 7-16 tablet by ity of tablet 00:00: mouth in [place] [address] the Medical morning. Branch aspirin 81 0 [...] by ity of tablet 00:00: mouth in [place] 00 the Medical morning. Branch lidocaine 5 2021-0 Yes 3{patch Apply 3 Univers % (700 7-16 } Patches to ity of mg/patch) 00:00: area(s) in [place] patch 00 the Medical morning. Branch clopidogreL 2021-0 Yes 75mg Take 1 Univ ers 75 mg 7-16 tablet by ity of tablet 00:00: mouth in [place] 00 the Medical morning. Branch aspirin 81 2021-0 Yes 81mg Take 1 Unive rs mg chewable 7-16 tablet by ity of tablet 00:00: mouth in [place] 00 the Medical morning. Branch metoprolol 2021-0 Yes 12.5mg Take 0.5 U nivers succinate 7-16 tablets by ity of XL 25 mg 24 00:00: mouth in [place] hr tablet 00 the Medical morning. Branch spironolact 2021-0 2021- No 12.5mg Take 0.5 Univers one 25 mg 7-16 07-26 tablets by ity of tablet 00:00: 00:00 mouth in [place] 00 :00 the Medical morning. Branch lidocaine 5 2021-0 2022- No 3{patch Apply 3 Univers % (700 7-16 07-26 } Patches to ity of mg/patch) 00:00: 00:00 area(s) in [place] patch 00 :00 the Medical morning. Branch clopidogreL 2021-0 2- No 75mg Take 1 Uni vers 75 mg 7-16 07-26 tablet by ity of tablet 00:00: 00:00 mouth in [place] 00 :00 the Medical morning. Branch aspirin 81 2-0 2- No 81mg Take 1 Univ ers mg chewable 7-16 07-26 tablet by it y of tablet 00:00: 00:00 mouth in [place] 00 :00 the Medical morning. Branch metoprolol [...] ity o f 16:26: 00:00 in the [place] 33 :00 morning. Medical Branch isosorbide 2021-2021- [...] by ity of capsule 00:00: mouth in [place] 00 the Medical morning Branch and 1 capsule in the evening. furosemide 0 Yes 80mg Take 1 Unive rs 80 mg 7-15 tablet by ity of tablet 00:00: mouth [place] [address] every Medical morning Branch and evening. docusate [...] 05-28 Oral, ity of n 22:08: Q4HPRN, [place] (PERCOCET) 46 Starting Medic al 5-325 mg [...] Oral, ity of XL (TOPROL 20:15: DAILY, [place] XL) tablet 00 First dose Med ical [...] BIDPRN, [place] mg 00 Starting Medical on [facility] 05/27/22 at 1345, Until Discontinu ed, Routine, agitation, anxiety QUEtiapine 2021- No 25mg 25 mg, Univ ers (SEROQUEL) 05-27 Oral, BID, it y of tablet 25 13:00: 18:31 First dose [place] mg 00 :35 on [facility] 05/27/22 at Branch 0800, Until Discontinu ed, Routine HYDROcodone 2021- No 1{tbl} 1 tablet, Univers -acetaminop 05-27 Oral, ity of hen (NORCO) 05:49: 22:09 Q4HPRN, [place] 10-325 mg 42 :14 Starting Medica l tablet 1 on [facility] tablet 05/27/22 at 0049, Until Thu05/28/22 at 1709, Routine, Pain (scale 4-6) morpHINE (4 No 4mg 4 mg, Slow Univers mg/mL) 05-27 IV Push, ity of injection 4 05:49: 22:09 Q4HPRN, [place] mg 29 :14 Starting Medical on [facility] 05/27/22 at 0049, Until Thu05/28/22 at 1709, Routine, Pain (scale 7-10) QUEtiapine No 25mg 25 mg, Univ ers (SEROQUEL) 05-26 Oral, ity of tablet 25 23:30: 23:25 ONCE, 1 [place] mg 00 :00 dose, On Medical [facility] 05/26/22 at 1830, Routine sulfur 2021- No [id number] 5mL 5 mL, [facility] rs hexafluorid 05-26 Intravenou i ty of e microsphr 15:00: 15:00 s, ONCE, 1 [place] (LUMASON) 00 :00 dose, On Medica l injection 5 [facility] mL 05/26/22 at 1000, Routine
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 Restricted medication : KITTY GAGE clopidogreL Yes 75mg 75 mg, Univ ers (PLAVIX) 75 05-26 Oral, ity of mg tablet 14:00: DAILY, [place] 75 mg 00 First dose Medical on [facility] 05/26/22 at 0900, Until Discontinu ed, Routine aspirin Yes 81mg 81 mg, Univers chewable 05-26 Oral, ity of tablet 81 14:00: DAILY, [place] mg 00 First dose Medical on [facility] 05/26/22 at 0900, Until Discontinu ed, Routine ketorolac 2021- No 15mg 15 mg, Unive rs (TORADOL) 05-25 Slow IV ity of injection 21:45: 21:01 Push, [place] 15 mg 00 :00 ONCE, 1 Medical dose, On [facility] 05/25/22 at 1645, Routine ALPRAZolam 2021- No .25mg 0.25 mg, U nivers (XANAX) 05-25 Oral, ity of tablet 0.25 21:45: 21:01 ONCE, 1 [place] mg 00 :00 dose, On [facility] 05/25/22 at 1645, Routine furosemide 2021- No 40mg 40 mg, Univ ers (LASIX) 05-25 Slow IV ity of injection 19:00: 19:49 Push, [place] 40 mg 00 :32 Q12H, Medical First dose Branch [facility] 05/25/22 at 1400, Until Discontinu ed, Routine docusate Yes 100mg 100 mg, Unive rs (COLACE) 05-25 Oral, BID, ity o f capsule 100 13:00: First dose [place] mg [address] [facility] 05/25/22 at Branch 0800, Until Discontinu ed, Routine ketorolac 2021- No 15mg 15 mg, Unive rs (TORADOL) 05-25 Slow IV ity of injection 04:30: 04:18 Push, [place] 15 mg 00 :00 ONCE, 1 Medical dose, On Branch [facility] 05/24/22 at 2330, Routine atorvastati Yes 40mg 40 mg, Univ ers n (LIPITOR) 05-25 Oral, QHS, it y of tablet 40 02:00: First dose [place] mg 00 on [facility] 05/24/22 at Branch 2100, Until Discontinu ed, Routine lidocaine 2021- No 2{patch 2 Patch, Univers (LIDODERM) 05-24 } Topical, ity of 5 % (700 23:45: 16:50 Administer [place] mg/patch) 00 :54 over 12 Medical patch 2 Hours, Branch Patch DAILY, First dose on [facility] 05/24/22 at 1845, Until Discontinu ed, Routine HYDROcodone 0 2022- No 1{tbl} 1 tablet, Univers -acetaminop 05-24 Oral, ity of hen (NORCO) 23:43: 05:49 Q4HPRN, [place] 10-325 mg 24 :53 Starting Medica l tablet 1 on [facility] Branch tablet 05/24/22 at 1843, Until 05/27/22 at 0049, Routine, Pain (scale 4-6), Pain (scale 7-10) heparin Yes 5000U 5,000 Univers (porcine) 05-24 Units, ity of injection 13:00: Subcutaneo [place] 5,000 Units 00 us, Q12H, Med ical First dose Branch on [facility] 05/24/22 at 0800, Until Discontinu ed, Routine ondansetron Yes 4mg 4 mg, Slow Univers (ZOFRAN 05-24 IV Push, ity of (PF)) 10:55: [facility], [place] injection 4 26 Starting Medi birdie mg on [facility] Branch 05/24/22 at 0555, Until Discontinu ed, Routine, Nausea and Vomiting (N/V) acetaminoph Yes 650mg 650 mg, Un mel en 05-24 Oral, ity of (TYLENOL) 10:55: Q6RN, [place] tablet 650 21 Starting Medic al mg on [facility] Branch 05/24/22 at 0555, Until Discontinu [...] Branch at 0315, Routine iopamidol 2021- No [id number] 100mL 100 mL, Univers (ISOVUE 05-24 Intravenou [...] ity o f (PF)) 06:46: 23:44 Push, [place] injection 51 :55 Q30MIN Medical 50 mcg [...] ity o f (PF)) 04:04: 06:06 Push, [place] injection 41 :00 Q30MIN Medical 50 mcg PRN, 3 Branch doses, Starting on Thu05/23/22 at 2304, Until Discontinu ed, ADAMA, Pain (scale 7-10) atorvastati Yes 40 mg = 1 M emoria n 40 mg 4-25 tab, PO, l oral tablet 18:19: Bedtime, # [place] 00 30 tab, 0 Refill(s), Pharmacy: [facility], 170.18, cm, 03/05/22 6:53:00 CDT, Height, 77.3, kg, 03/05/22 6:53:00 CDT, Weight atorvastati Yes 40 mg = 1 M emoria n 40 mg 4-25 tab, PO, l oral tablet 18:19: Bedtime, # [place] 00 30 tab, 0 Refill(s), Pharmacy: [facility], 170.18, cm, 03/05/22 6:53:00 CDT, Height, 77.3, kg, 03/05/22 6:53:00 CDT, Weight lidocaine 2022-0 Yes 1 patch, Manjit greg topical 4-25 TOP, l patch (5% 18:18: Daily, # Herm kathy film) 00 10 patch, 0 Refill(s), Pharmacy: [facility] 482, 170.18, cm, 03/05/22 6:53:00 CDT, Height, 77.3, kg, 03/05/22 6:53:00 CDT, Weight lidocaine 2021-0 Yes 1 patch, Manjit greg topical 4-25 TOP, l patch (5% 18:18: Daily, # Herm kathy film) 00 10 patch, 0 Refill(s), Pharmacy: [place] [id number], 170.18, cm, 03/05/22 6:53:00 CDT, Height, 77.3, kg, 03/05/22 6:53:00 CDT, Weight methocarbam 0 Yes 500 mg = 1 Memoria ol 500 mg 4-25 tab, PO, l oral tablet 18:17: TID, X 7 He rm day, # 21 tab, 0 Refill(s), Pharmacy: [place] [id number], 170.18, cm, 03/05/22 6:53:00 CDT, Height, 77.3, kg, 03/05/22 6:53:00 CDT, Weight Metoprolol 0 Yes 25 mg = 1 Me moria Succinate 4-25 tab, PO, l ER 25 mg 18:17: Daily, # [place]en nn oral 00 30 tab, 0 tablet, Refill(s), extended Pharmacy: release [facility] 482, 170.18, cm, 03/05/22 6:53:00 CDT, Height, 77.3, kg, 03/05/22 6:53:00 CDT, Weight methocarbam 0 Yes 500 mg = 1 Memoria ol 500 mg 4-25 tab, PO, l oral tablet 18:17: TID, X 7 He rmann day, # 21 tab, 0 Refill(s), Pharmacy: [place] [id number], 170.18, cm, 03/05/22 6:53:00 CDT, Height, 77.3, kg, 03/05/22 6:53:00 CDT, Weight Metoprolol 2022-0 Yes 25 mg = 1 Me moria Succinate 4-25 tab, PO, l ER 25 mg 18:17: Daily, # [place] nn oral 00 30 tab, 0 tablet, Refill(s), extended Pharmacy: [facility], 170.18, cm, 03/05/22 6:53:00 CDT, Height, 77.3, kg, 03/05/22 6:53:00 CDT, Weight empaglifloz 0 Yes 10 mg = 1 M emoria in 10 mg 4-25 tab, PO, l oral tablet 18:16: Daily, # [place] 00 30 tab, 0 Refill(s), Pharmacy: [place] [id number], 170.18, cm, 03/05/22 6:53:00 CDT, Height, 77.3, kg, 03/05/22 6:53:00 CDT, Weight gabapentin 0 Yes 100 mg = 1 M emoria 100 mg oral 4-25 cap, PO, l capsule 18:16: Q8H, # 30 [place] nn 00 cap, 0 Refill(s), Pharmacy: [facility], 170.18, cm, 03/05/22 6:53:00 CDT, Height, 77.3, kg, 03/05/22 6:53:00 CDT, Weight losartan 25 2021-0 Yes 25 mg = 1 M emoria mg oral 4-25 tab, PO, l tablet 18:16: Daily, # [place] 00 30 tab, 0 Refill(s), Pharmacy: [place] [id number], 170.18, cm, 03/05/22 6:53:00 CDT, Height, 77.3, kg, 03/05/22 6:53:00 CDT, Weight empaglifloz 2021-0 Yes 10 mg = 1 M emoria in 10 mg 4-25 tab, PO, l oral tablet 18:16: Daily, # [place] 00 30 tab, 0 Refill(s), Pharmacy: [place] [id number], 170.18, cm, 03/05/22 6:53:00 CDT, Height, 77.3, kg, 03/05/22 6:53:00 CDT, Weight gabapentin 2021-0 Yes 100 mg = 1 M emoria 100 mg oral 4-25 cap, PO, l capsule 18:16: Q8H, # 30 [place]en nn 00 cap, 0 Refill(s), Pharmacy: [place] [id number], 170.18, cm, 03/05/22 6:53:00 CDT, Height, 77.3, kg, 03/05/22 6:53:00 CDT, Weight losartan 25 2021-0 Yes 25 mg = 1 M emoria mg oral 4-25 tab, PO, l tablet 18:16: Daily, # [place] 00 30 tab, 0 Refill(s), Pharmacy: [place] [address], 170.18, cm, 03/05/22 6:53:00 CDT, Height, 77.3, kg, 03/05/22 6:53:00 CDT, Weight donepezil 5 2021-0 Yes 5 mg = 1 Me moria mg oral 4-25 tab, PO, l tablet 18:15: Bedtime, # [place] nn 00 30 tab, 0 Refill(s), Pharmacy: [place] [address], 170.18, cm, 03/05/22 6:53:00 CDT, Height, 77.3, kg, 03/05/22 6:53:00 CDT, Weight aspirin 81 2021-0 Yes 81 mg = 1 Me moria mg tablet, 4-25 tab, PO, l enteric 18:15: Daily, # [place] n coated 00 30 tab, 0 Refill(s), Pharmacy: [place] [address], 170.18, cm, 03/05/22 6:53:00 CDT, Height, 77.3, kg, 03/05/22 6:53:00 CDT, Weight donepezil 5 2021-0 Yes 5 mg = 1 Me moria mg oral 4-25 tab, PO, l tablet 18:15: Bedtime, # [place] nn 00 30 tab, 0 Refill(s), Pharmacy: [place] [address], 170.18, cm, 03/05/22 6:53:00 CDT, Height, 77.3, kg, 03/05/22 6:53:00 CDT, Weight aspirin 81 2021-0 Yes 81 mg = 1 Me moria mg tablet, 4-25 tab, PO, l enteric 18:15: Daily, # [place] n coated 00 30 tab, 0 Refill(s), Pharmacy: [facility], 170.18, cm, 03/05/22 6:53:00 CDT, Height, 77.3, kg, 03/05/22 6:53:00 CDT, Weight MiraLax No Notes: Memoria 4-24 Dissolve l 18:08: in 8 oz of [place] 00 water or juice. (Same as: Miralax) senna 8.6 No Notes: Memori a mg oral 4-24 (Same as: l tablet 18:08: Senokot) [place] 00 Metamucil No Notes: Memori a 4-24 (Same as: l 18:08: Metamucil) [place] 00 Mix in 8 oz liquid with meal. MiraLax No Notes: Memoria 4-24 Dissolve l 18:08: in 8 oz of [place] 00 water or juice. (Same as: Miralax) senna 8.6 No Notes: Memori a mg oral 4-24 (Same as: l tablet 18:08: Senokot) [place] 00 Metamucil No Notes: Memori a 4-24 (Same as: l 18:08: Metamucil) [place] 00 Mix in 8 oz liquid with meal. tramadol No Notes: Not Mem oria 4-24 to exceed l 15:13: 400mg/day. [place] 00 (Same As: Ultram) tramadol No Notes: Not Mem oria 4-24 to exceed l 15:13: 400mg/day. [place] 00 (Same As: Ultram) donepezil No Notes: Memori a 4-24 (Same as: l 02:00: Aricept) [place] 00 donepezil No Notes: Memori a 4-24 (Same as: l 02:00: Aricept) [place] 00 Metoprolol No Notes: Memor ia Succinate [...] Dissolve l 13:51: in 8 oz of [place] 00 water or juice. (Same as: Miralax) senna 8.6 No Notes: Memori a mg oral 4-23 (Same as: l tablet 13:51: Senokot) [place] 00 MiraLax No Notes: Memoria 4-23 Dissolve l 13:51: in 8 oz of [place] 00 water or juice. (Same as: Miralax) senna 8.6 No Notes: Memori a mg oral 4-23 (Same as: l tablet 13:51: Senokot) [place] tramadol No Notes: 25 Manjit greg 4-23 mg = 1/2 x l 05:39: 50 mg TAB [place] 00 Not to exceed 400mg/day. (Same As: Ultram) tramadol No Notes: 25 Manjit greg 4-23 mg = 1/2 x l 05:39: 50 mg TAB [place] 00 Not to exceed 400mg/day. (Same As: Ultram) MiraLax No Notes: Memoria 4-22 Dissolve l 23:54: in 8 oz of [place] 00 water or juice. (Same as: Miralax) MiraLax No Notes: Memoria 4-22 Dissolve l 23:54: in 8 oz of [place] water or juice. (Same as: Miralax) gabapentin No 60 Memoria 300 mg oral 4-22 ml/min), l capsule 21:00: Start [place] 00 date: 03/07/22 16:00:00 CDT, Duration: 30 day, Stop date: 04/06/22 8:00:00 CDT gabapentin No 60 Memoria 300 mg oral 4-22 ml/min), l capsule 21:00: Start [place] 00 date: 03/07/22 16:00:00 CDT, Duration: 30 day, Stop date: 04/06/22 8:00:00 CDT acetaminoph No Notes: Do M emoria en-codeine 4-22 not exceed l #3 17:00: 4gm/day of [place] 00 acetaminop hen. (Same as: Tylenol with [...] 120 mg oral 14:31: QAM, 0 Herm kathy tablet, 00 Refill(s) extended release atorvastati No [...] 120 mg oral 14:31: QAM, 0 Herm kathy tablet, 00 Refill(s) extended release atorvastati No [...] (Same as: l capsule 14:30: Neurontin) Herm kathy 00 Lasix 20 mg No 20 mg = 1 M emoria oral tablet 4-22 tab, PO, l 14:30: Daily, 0 [place] 00 Refill(s) Januvia 100 No 100 mg = 1 Memoria mg oral 4-22 tab, PO, l tablet 14:30: Daily, 0 [place] 00 Refill(s) gabapentin No Notes: Memor ia 100 mg oral 4-22 (Same as: l capsule 14:30: Neurontin) Herm kathy 00 Lasix 20 mg No 20 mg = 1 M emoria oral tablet 4-22 tab, PO, l 14:30: Daily, 0 [place] 00 Refill(s) Januvia 100 No 100 mg = 1 Memoria mg oral 4-22 tab, PO, l tablet 14:30: Daily, 0 [place] 00 Refill(s) Robaxin No Notes: Memoria 4-22 (Same l 14:00: as:Robaxin [place] ) enoxaparin No Notes: Memor ia 4-22 (Same as: l 14:00: Lovenox) [place] 00 Robaxin No Notes: Memoria 4-22 (Same l 14:00: as:Robaxin [place] ) enoxaparin No Notes: Memor ia 4-22 (Same as: l 14:00: Lovenox) remove No Notes: Memoria patch 4-22 Remove l 02:00: patch 12 [place] 00 hours after applicatio n each day. remove No Notes: Memoria patch 4-22 Remove l 02:00: patch 12 [place] 00 hours after applicatio n each day. oxyCODONE No Notes: Memori a immediate 4-22 (Same as: l release 01:21: Roxicodone Herm kathy ) oxyCODONE No Notes: Memori a immediate 4-22 (Same as: l release 01:21: Roxicodone Herm kathy ) Tylenol No Notes: Do Memor ia [...] l patch (5% 12:44: once for Herm kathy film) 00 up to 12 hours in a 24-hour period (12 hours on and 12 hours off). (Same as: Aspercreme Lidocaine Patch) "Remove old patch before applicatio n of new patch" lidocaine No Notes: Memori a topical -21 Apply only l patch (5% 12:44: once for Herm kathy film) 00 up to 12 hours in a 24-hour period (12 hours on and 12 hours off). (Same as: Aspercreme Lidocaine Patch) "Remove old patch before applicatio n of new patch" atorvastati No Notes: Manjit greg n 4-21 (Same as: l 02:00: Lipitor) atorvastati No Notes: Manjit greg n 4-21 [...] 4-20 25 mL, l (D50W) 16:31: Route: [place] 00 IVP, Drug Form: INJ, Dosing Weight [...] temperatur e. Expires in days from ____Date [place] 5/325 No Notes: Manjit greg oral tablet 4-20 (Same as: l 16:20: [place] 00 325/5) Do not exceed 4gm/day of acetaminop hen. [place] 5/325 No Notes: Manjit greg oral tablet 4-20 (Same as: l 16:20: [place] 325/5) Do not exceed 4gm/day of acetaminop hen. aspirin No Notes: Do Memor ia 4-20 not crush l 14:54: or chew. [place] 00 (Same As: Ecotrin) aspirin No Notes: Do Memor ia 4-20 not crush l 14:54: or chew. [place] 00 (Same As: Ecotrin) Omnipaque No 80 [...] at 0900, 1 mL cyclobenzap 2021- Yes [id number] 10mg Take 1 Univers rine 10 mg 4-16 tablet by ity of tablet 00:00: mouth 3 [place] 00 (three) Medical times Branch daily as needed for Muscle Spasms. cyclobenzap 2021- Yes [id number] 10mg Take 1 Univers rine 10 mg 4-16 tablet by ity of tablet 00:00: mouth 3 [place] 00 (three) Medical times Branch daily as needed for Muscle Spasms. cyclobenzap 2021-0 2021- No [id number] 10mg Take 1 Univers rine 10 mg [...] MG 17:49: Hospita tablet 02 l furosemide 2021-0 Yes 1{tbl} QD Take 1 Met hodi (Lasix) 40 2-[address] mg tablet 17:49: mouth Hospita 02 daily. l traZODone 2021-0 Yes 50mg Take 50 mg Me thodi (DESYREL) 2-[address] 50 MG 17:49: Hospita tablet 02 l furosemide 0 Yes 1{tbl} QD Take 1 Met hodi (Lasix) 40 2-[address] mg tablet 17:49: mouth Hospita 02 daily. l traZODone 2021-0 Yes 50mg Take 50 mg Me thodi (DESYREL) 2-[address] 50 MG 17:49: Hospita tablet 02 l clopidogreL 2021- No 75mg QD Take 1 Met hodi (PLAVIX) 75 2-08 18-13 tablet (75 s t mg tablet 00:00: 05:59 mg total) Ho spita 00 :00 by mouth l daily for 30 days. isosorbide 2021- No 120mg QD Take 1 Met hodi mononitrate 2-08 18-[address] (IMDUR) 120 00:00: 05:59 (120 mg Ho spita MG 24 hr 00 :00 total) by l tablet mouth daily for 30 days. clopidogreL 2021- No 75mg QD Take 1 Met hodi (PLAVIX) 75 2-08 18-13 tablet (75 s t mg tablet 00:00: 05:59 mg total) Ho spita 00 :00 by mouth l daily for 30 days. isosorbide 2021- No 120mg QD Take 1 Met hodi mononitrate 2-10 -[address] (IMDUR) 120 00:00: 05:59 (120 mg Ho spita MG 24 hr 00 :00 total) by l tablet mouth daily for 30 days. clopidogreL 2021- No 75mg QD Take 1 Met hodi (PLAVIX) 75 2-10 -13 tablet (75 s t mg tablet 00:00: 05:59 mg total) Ho spita 00 :00 by mouth l daily for 30 days. isosorbide 2021-2021- No 120mg QD Take 1 Met hodi mononitrate 2-10 03-[address] (IMDUR) 120 00:00: 05:59 (120 mg Ho spita MG 24 hr 00 :00 total) by l tablet mouth daily for 30 days. isosorbide 0 2021- No 60mg QD Take 60 mg Methodi mononitrate 212-[address] (IMDUR) 60 17:50: 00:00 daily. Hosp lily MG 24 hr 01 :00 l tablet isosorbide 0 2021- No 60mg QD Take 60 mg Methodi mononitrate 212-[address] (IMDUR) 60 17:50: 00:00 daily. Hosp lily MG 24 hr 01 :00 l tablet isosorbide 2021- No 60mg QD Take 60 mg Methodi mononitrate 12-[address] (IMDUR) 60 17:50: 00:00 daily. Hosp lily MG 24 hr 01 :00 l tablet multivitami Yes 1{tbl} QD Take 1 Me thodi n 2-[address] (THERAGRAN) 17:49: mouth Hospi ta tablet 58 nightly. l traMADol Yes 50mg Take 50 mg Met hodi (ULTRAM) 50 2-[address] mg tablet 17:49: Hospita 58 l aspirin 0 Yes 81mg QD Take 81 mg Meth [...] MEQ CR 58 daily. l tablet multivitami Yes 1{tbl} QD Take 1 Me thodi n 2-[address] (THERAGRAN) 17:49: mouth Hospi ta tablet 58 nightly. l traMADol 2021-0 Yes 50mg Take 50 mg Met hodi (ULTRAM) 50 2-[address] mg tablet 17:49: Hospita 58 l aspirin 2-0 Yes 81mg QD Take 81 mg Meth mercedes (ECOTRIN) 2-[address] 81 MG 17:49: daily. Hospita enteric 58 l coated tablet atorvastati 2021-0 Yes 40mg QD Take 40 mg Methodi [...] MEQ CR 58 daily. l tablet multivitami 2021-0 Yes 1{tbl} QD Take 1 Me thodi [...] Hospita enteric 58 l coated tablet atorvastati 2021-0 Yes 40mg QD Take 40 mg Methodi [...] MEQ CR 58 daily. l tablet nitroglycer 2022-0 2022- No .4mg Place 1 Me thodi [...] mg day as per tablet needed. acetaminoph Yes 1{tbl} Q.5D Take 1 Me thodi en-codeine 1-[address] (TYLENOL 00:00: mouth 2 Hospit a WITH 00 (two) l CODEINE #3) times a 300-30 mg day as per tablet needed. acetaminoph Yes 1{tbl} Q.5D Take 1 Me thodi en-codeine 1-[address] (TYLENOL 00:00: mouth 2 Hospit a WITH 00 (two) l CODEINE #3) times a 300-30 mg day as per tablet needed. aspirin 81 2020-11- No [id number] 81mg Take 1 Univers mg chewable 2-19 -19 tablet by it y of tablet 00:00: 05:59 mouth [place] 00 :00 daily for Medical 30 days. Branch clopidogreL 2020-11- No [id number] 75mg Take 1 Univers 75 mg 2-12-04 tablet by ity of tablet 00:00: 05:59 mouth [place] 00 :00 daily for Medical 30 days. Branch furosemide 2020-11- No [id number] 20mg Take 1 Univers 20 mg -12-04 tablet by ity of tablet 00:00: 05:59 mouth [place] 00 :00 daily for Medical 30 days. Branch aspirin 81 2020-11- No [id number] 81mg Take 1 Univers mg chewable 01-04 tablet by it y of tablet 00:00: 05:59 mouth [place] 00 :00 daily for Medical 30 days. Branch clopidogreL 2020-11- No [id number] 75mg Take 1 Univers 75 mg 2-12-04 tablet by ity of tablet 00:00: 05:59 mouth [place] 00 :00 daily for Medical 30 days. Branch furosemide 2020-11- No [id number] 20mg Take 1 Univers 20 mg 01-04 tablet by ity of tablet 00:00: 05:59 mouth [place] 00 :00 daily for Medical 30 days. Branch aspirin 81 2020-11- No [id number] 81mg Take 1 Univers mg chewable 01-04 tablet by it y of tablet 00:00: 05:59 mouth [place] 00 :00 daily for Medical 30 days. Branch clopidogreL 2020-11- No [id number] 75mg Take 1 Univers 75 mg 01-04 tablet by ity of tablet 00:00: 05:59 mouth [place] 00 :00 daily for Medical 30 days. Branch furosemide 2020-11- No [id number] 20mg Take 1 Univers 20 mg 01-04 [...] 11/02/21 at 0800, Until Discontinu ed, Routine metoprolol 2020-11 Yes 25mg Q.5D Take 25 mg M ethodi succinate 2-[address] XL 00:00: (two) Hospita (TOPROL-XL) 00 times a l 25 mg 24 hr day. tablet QUEtiapine 2020-11 Yes [id number] 25mg Take 1 Univers 25 mg 2-18 tablet by ity of tablet 00:00: mouth at [place] 00 bedtime as Medical needed Branch (agitation /insomnia) . QUEtiapine 2020-11 Yes [id number] 25mg Take 1 Univers 25 mg 2-18 tablet by ity of tablet 00:00: mouth at [place] 00 bedtime as Medical needed Branch (agitation /insomnia) . QUEtiapine 2020-11 Yes [id number] 25mg Take 1 Univers 25 mg 2-18 tablet by ity of tablet 00:00: mouth at [place] 00 bedtime as Medical needed Branch (agitation /insomnia) . QUEtiapine 2020-11 Yes [id number] 25mg Take 1 Univers 25 mg 2-18 tablet by ity of tablet 00:00: mouth at [place] 00 bedtime as Medical needed Branch (agitation /insomnia) . QUEtiapine 2020-11 Yes [id number] 25mg Take 1 Univers 25 mg 2-18 tablet by ity of tablet 00:00: mouth at [place] 00 bedtime as Medical needed Branch (agitation /insomnia) . QUEtiapine 2020-11 Yes [id number] 25mg Take 1 Univers 25 mg 2-18 tablet by ity of tablet 00:00: mouth at [place] 00 bedtime as Medical needed Branch (agitation /insomnia) . QUEtiapine 2020-11 Yes [id number] 25mg Take 1 Univers 25 mg 2-18 tablet by ity of tablet 00:00: mouth at [place] 00 bedtime as Medical needed Branch (agitation /insomnia) . metoprolol 2020-11 Yes 25mg Q.5D Take 25 mg M ethodi succinate 2-[address] XL 00:00: (two) Hospita (TOPROL-XL) 00 times a l 25 mg 24 hr day. tablet metoprolol 2020-11 Yes 25mg Q.5D Take 25 mg M ethodi succinate 2-[address] XL 00:00: (two) Hospita (TOPROL-XL) 00 times a l 25 mg 24 hr day. tablet QUEtiapine 2020-11- No [id number] 25mg Take 1 Univers 25 mg 2-18 07-26 tablet by ity of tablet 00:00: 00:00 mouth at [place] 00 :00 bedtime as Medical needed Branch (agitation /insomnia) . isosorbide 2020-11- No [id number] 60mg Take 1 Univers mononitrate 2-18 01-18 tablet by it y of 60 mg 24 hr 00:00: 05:59 mouth 2 [place] tablet 00 :00 (two) Medical times Branch daily for 30 days. metoprolol 2020-11- No [id number] 37.5mg Take 1.5 Univers succinate 2-18 01-18 tablets by ity of XL 25 mg 24 00:00: 05:59 mouth 2 [place] hr tablet 00 :00 (two) Medical times Branch daily for 30 days. isosorbide 2020-11- No [id number] 60mg Take 1 Univers mononitrate 2-18 01-18 tablet by it y of 60 mg 24 hr 00:00: 05:59 mouth 2 [place] tablet 00 :00 (two) Medical times Branch daily for 30 days. metoprolol 2020-11 No [id number] 37.5mg Take 1.5 Univers succinate 01-03 tablets by ity of XL 25 mg 24 00:00: 05:59 mouth 2 [place] hr tablet 00 :00 (two) Medical times Branch daily for 30 days. isosorbide 2020-11- No [id number] 60mg Take 1 Univers mononitrate 01-03 tablet by it y of 60 mg 24 hr 00:00: 05:59 mouth 2 [place] tablet 00 :00 (two) Medical times Branch daily for 30 days. metoprolol 2020-11- No [id number] 37.5mg Take 1.5 Univers succinate 01-03 tablets [...] 25mg 25 mg, Univ ers succinate 2-17 - Oral, BID, ity of XL (TOPROL 14:30: [...] mg 03:00: First dose [place] 00 on [facility] Medical 10/31/21 Branch at 2100, Until Discontinu ed, Routine atorvastati 2020-11 Yes 40mg 40 mg, Univ ers n (LIPITOR) 2-17 Oral, QHS, it y of tablet 40 03:00: First dose [place] mg 00 on [facility] Medical 10/31/21 Branch at 2100, Until Discontinu ed, Routine clopidogreL 2020-11 Yes 75mg 75 mg, Univ ers (PLAVIX) 2-16 Oral, ity of tablet 75 23:30: DAILY, [place] mg 00 First dose Medical on [facility] Branch 10/31/21 at 1730, Until Discontinu ed, Routine sulfur 2020-11- No [id number] 5mL 5 mL, Unive rs hexafluorid 01-01 Intravenou i ty of e microsphr 17:00: 17:00 s, ONCE, 1 [place] (LUMASON) 00 :00 dose, On Medica l injection 5 [facility] Branch mL 10/31/21 at 1100, Routine
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 Restricted medication : MEGGAN CAMARA isosorbide 2020-11- No 120mg 120 mg, Un mel mononitrate 01-01 Oral, ity of (IMDUR) 24 15:00: 14:16 DAILY, [place] hr tablet 00 :38 First dose Medi birdie 120 mg on [facility] Branch 10/31/21 at 0900, Until Discontinu ed, Routine Sliding 2020-11 Yes Subcutaneo Univ ers Scale -16 us, AC+HS, ity of Insulin-Reg 13:30: First dose [place] ular + Fsbg 00 on [facility] Medica l Testing 10/31/21 Branch at 0730, Until Discontinu ed, Routine enoxaparin 2020-11- No 1mg/kg 80 mg Uni vers (LOVENOX) 01-0118 (rounded ity o f injection 09:00: 14:17 from 78 mg [place] 80 mg 00 :35 = 1 mg/kg Medical ?78 kg), Branch Subcutaneo us, Q24H, First dose on [facility] 10/31/21 at 0300, Until Discontinu ed, Routine aspirin 2020-11- No 325mg 325 mg, Unive rs tablet 325 01-01-16 Oral, ity of mg 08:45: 08:15 ONCE, 1 [place] 00 :00 dose, On Medical Madhavi Branch [...] IV ity of (D50W) 08:16: Push, PRN, [place] injection 14 Starting Medica l 25 mL on Madhavi Branch 10/31/21 at 0216, Until Discontinu ed, ADAMA, Blood Glucose < or = 70 mg/dL and patient is unable to swallow or has mental status changes. morpHINE 2020-11 No 2mg 2 mg, Slow Un mel injection 2 01-01 1217 IV Push, ity of mg 07:36: 05:31 Q4HPN, [place] 09 :07 Starting Medical on Madhavi Branch [...] IV Push, ity of (PF)) 05:32: Q6HPRN, [place] injection 4 10 Starting Medi birdie mg on Thu Branch 10/30/21 at 2332, Until Discontinu ed, Routine, Nausea and Vomiting (N/V) acetaminoph 2020-11 Yes 650mg 650 mg, Un mel en 16 Oral, ity of (TYLENOL) 05:31: Q6HPRN, [place] tablet 650 56 Starting Medic al mg on Thu Branch 10/30/21 at 2331, Until Discontinu ed, Routine, Pain (scale 1-3) acetaminoph 2020-11 Yes 4647 1{tbl} 1 tablet, Univers en-codeine 2-16 Oral, ity of (TYLENOL 05:29: Q6HPRN, [place] #3) 300-30 29 Starting Medic al mg tablet 1 on Thu Branch tablet 10/30/21 at 2329, Until Discontinu ed, Routine, Pain (scale 4-6), Pain (scale 7-10) sodium 2020-11 Yes 5mL 5 mL, [facility] chloride 2-16 Intravenou ity o f (NS) 01:21: s, PRN, [place] injection 5 02 Starting Medi birdie mL [...] ity of mg 23:15: 22:23 ONCE, 1 [place] 00 :00 dose, [facility] 04/25/21 at Branch 1815, STAT acetaminoph 2020- No 1{tbl} 1 tablet, Univers en-codeine 6- 06-10 Oral, ity of (TYLENOL 19:00: 17:52 ONCE, 1 [place] #3) 300-30 00 :00 dose, [facility] birdie mg tablet 1 04/25/21 at Br anch tablet 1400, ADAMA cyclobenzap 2020- No 10mg 10 mg, Uni vers rine 04-25 06-10 Oral, ONCE ity of (FLEXERIL) 19:00: 17:52 NOW, 1 [place] tablet 10 [place] :00 dose, [facility] al mg 04/25/21 at Branch 1400, ADAMA cyclobenzap Yes [id number] 5mg Take 1 Univers rine 5 mg 6-10 tablet by ity o f tablet 00:00: mouth 3 [place] 00 (three) Medical times Branch daily. cyclobenzap Yes [id number] 5mg Take 1 [facility] rine 5 mg 6-10 tablet by ity o f tablet 00:00: mouth 3 [place] 00 (three) Medical times Branch daily. cyclobenzap Yes [id number] 5mg Take 1 [facility] rine 5 mg [...] left sided low back pain cyclobenzap Yes [id number] 5mg Take 1 [facility] rine 5 mg [...] left sided low back pain cyclobenzap Yes [id number] 5mg Take 1 [facility] rine 5 mg 6-10 tablet by ity o f tablet 00:00: mouth 3 [place] 00 (three) Medical times Branch daily. cyclobenzap 2021- No [id number] 5mg Take 1 [facility] rine 5 mg [...] Discontinu ed, Routine aspirin 81 2020-0 Yes [id number] 81mg Take 1 U nivers mg chewable 5-09 tablet by ity of tablet 00:00: mouth [place] 00 daily with Medical breakfast. [place] furosemide 2020-0 Yes [id number] 20mg Take 1 U nivers 20 mg 5-09 tablet by ity of tablet 00:00: mouth [place] 00 daily. [facility] aspirin 81 2020-0 Yes [id number] 81mg Take 1 U nivers mg chewable 5-09 tablet by ity of tablet 00:00: mouth [place] 00 daily with Medical breakfast. [place] furosemide 2020-0 Yes [id number] 20mg Take 1 U nivers 20 mg 5-09 tablet by ity of tablet 00:00: mouth [place] 00 daily. [facility] aspirin 81 2020-0 Yes [id number] 81mg Take 1 U nivers mg chewable 5-09 tablet by ity of tablet 00:00: mouth [place] 00 daily with Medical breakfast. [place] furosemide 2020-0 Yes [id number] 20mg Take 1 U nivers 20 mg 5-09 tablet by ity of tablet 00:00: mouth [place] 00 daily. [facility] aspirin 81 2020-0 Yes [id number] 81mg Take 1 U nivers mg chewable 5-09 tablet by ity of tablet 00:00: mouth [place] 00 daily with Medical breakfast. [place] furosemide 2020-0 Yes [id number] 20mg Take 1 U nivers 20 mg 5-09 tablet by ity of tablet 00:00: mouth [place] 00 daily. [facility] aspirin 81 2020-0 Yes [id number] 81mg Take 1 U nivers mg chewable 5-09 tablet by ity of tablet 00:00: mouth [place] 00 daily with Medical breakfast. [place] furosemide 2020-0 Yes [id number] 20mg Take 1 U nivers 20 mg 5-09 tablet by ity of tablet 00:00: mouth [place] 00 daily. [facility] aspirin 81 2020-0 Yes [id number] 81mg Take 1 U nivers mg chewable 5-09 tablet by ity of tablet 00:00: mouth [place] 00 daily with Medical breakfast. [place] furosemide 2020-0 Yes [id number] 20mg Take 1 U nivers 20 mg 5-09 tablet by ity of tablet 00:00: mouth [place] 00 daily. [facility] aspirin 81 2020-0 Yes [id number] 81mg Take 1 U nivers mg chewable 5-09 tablet by ity of tablet 00:00: mouth [place] 00 daily with Medical breakfast. Branch furosemide 2020-0 Yes [id number] 20mg Take 1 U nivers 20 mg 5-09 tablet by ity of tablet 00:00: mouth [place] 00 daily. Medical Branch aspirin 81 2020-0 Yes [id number] 81mg Take 1 U nivers mg chewable 5-09 tablet by ity of tablet 00:00: mouth [place] 00 daily with Medical breakfast. Branch furosemide 2020-0 Yes [id number] 20mg Take 1 U nivers 20 mg 5-09 tablet by ity of tablet 00:00: mouth [place] 00 daily. Medical Branch aspirin 81 2020-0 Yes [id number] 81mg Take 1 U nivers mg chewable 5-09 tablet by ity of tablet 00:00: mouth [place] 00 daily with Medical breakfast. Branch furosemide 2020-0 Yes [id number] 20mg Take 1 U nivers 20 mg 5-09 tablet by ity of tablet 00:00: mouth [place] 00 daily. Medical Branch aspirin 81 2019-0 202- No [id number] 81mg Take 1 [facility] mg chewable 5-09 12-18 tablet by it y of tablet 00:00: 00:00 mouth [place] 00 :00 daily with Medical breakfast. Branch furosemide 2020-0 2021- No [id number] 20mg Take 1 [facility] 20 mg 5-09 12-18 tablet by ity of tablet 00:00: 00:00 mouth [place] 00 :00 daily. Medical Branch isosorbide 2020-0 2020- No [id number] 90mg Take 3 [facility] mononitrate 5-09 05-08 tablets by i ty of 30 mg 24 hr 00:00: 00:00 mouth [place] tablet 00 :00 daily. Medical Branch isosorbide 2020-0 2020- No [id number] 90mg Take 3 [facility] mononitrate 5-09 05-08 tablets by i ty of 30 mg 24 hr 00:00: 00:00 mouth [place] tablet 00 :00 daily. Medical Branch maalox/lido 2020-0 2020- No 5mL 5 mL, Univ ers sydni 2 5-08 05-08 Oral, ity of %viscous 20:45: 20:56 ONCE, 1 [place] 1:1 00 :00 dose, Fri Medical suspension 03/23/20 at [facility] (COMPOUNDED 1545, ) Routine maalox/lido 2020-0 2020- No 5mL 5 mL, [facility] sydni 2 03-23- Oral, ity of %viscous 20:45: 20:56 ONCE, 1 [place] 1:1 00 :00 dose, Fri Medical suspension 03/23/20 at [facility] (COMPOUNDED 1545, ) Routine acetaminoph 2020-0 Yes 875mg 900 mg Uni vers en -08 (rounded ity of (TYLENOL) 20:00: from 875 [place] tablet 900 00 mg), Oral, Med ical mg Q8H, First Branch dose on Thu03/23/20 at 1500, Until Discontinu ed, Routine acetaminoph 2020-0 Yes 875mg 900 mg Uni vers en -08 (rounded ity of (TYLENOL) 20:00: from 875 [...] :00 dose, Fri Medical (DEFINITY) 03/23/20 at [facility] injection 2 1030, mL Routine perflutren [...] IV Push, ity of mg 07:59: Q4HPRN, [place] [address] [facility] 03/23/20 Branch at 0259, Until Discontinu ed, Routine, Chest pain morpHINE 2020-0 Yes 2mg 2 mg, Slow Uni vers injection 2 5-08 IV Push, ity of mg 07:59: Q4HPRN, [place] [address] [facility] 03/23/20 Branch at 0259, Until [...] Fri Medi birdie (4 %) 03/23/20 at [place] infusion 2 0245, g Routine KCL 2020-0 [...] 2020-0 2020- No 4000U 4,000 Univers 1000 03-23 05-08 Units, IV ity of unit/mL 04:15: [...] ORAL) Cholecalcif 2019-0 2020- No Take by Un mel ann, [...] Yes .4mg 0.4 mg, Uni vers in - Sublingual ity of (NITROSTAT) 02:38: , Q5MIN [place] as sublingual 00 PRN, 3 Medical tablet 0.4 doses, Branch mg Starting [facility] 03/22/20 at 2138, Until Discontinu ed, ADAMA, Chest pain nitroglycer 2020-0 Yes .4mg 0.4 mg, Uni vers in -08 Sublingual ity of (NITROSTAT) 02:38: , Q5MIN [place] sublingual 00 PRN, 3 Medical tablet 0.4 doses, Branch mg Starting [facility] 03/22/20 at 2138, Until Discontinu ed, ADAMA, Chest pain aspirin 2020-0 2020- No 324mg 324 mg, Unive rs chewable - 05-08 Oral, ity of tablet 324 02:37: 02:51 ONCE, 1 [place] mg 00 :00 dose, [facility] 03/22/20 at Branch 2145, ADAMA aspirin 2020-0 2020- No 324mg 324 mg, Unive rs chewable 03-23 05-08 Oral, ity of tablet 324 02:37: 02:51 ONCE, 1 [place] mg 00 :00 dose, [facility] 03/22/20 at Branch 2145, ADAMA isosorbide 2020-0 Yes [id number] 90mg Take 1.5 Univers mononitrate 5-08 tablets by it y of 60 mg 24 hr 00:00: mouth [place] tablet 00 daily. [facility] isosorbide 2020-0 Yes [id number] 90mg Take 1.5 [facility] mononitrate 5-08 tablets by it y of 60 mg 24 hr 00:00: mouth [place] tablet 00 daily. [facility] isosorbide 2020-0 Yes [id number] 90mg Take 1.5 [facility] mononitrate 5-08 tablets by it y of 60 mg 24 hr 00:00: mouth [place] tablet 00 daily. [facility] isosorbide 2020-0 Yes [id number] 90mg Take 1.5 [facility] mononitrate 5-08 tablets by it y of 60 mg 24 hr 00:00: mouth [place] tablet 00 daily. [facility] isosorbide 2020-0 Yes [id number] 90mg Take 1.5 [facility] mononitrate 5-08 tablets by it y of 60 mg 24 hr 00:00: mouth [place] tablet 00 daily. [facility] isosorbide 2020-0 Yes [id number] 90mg Take 1.5 [facility] mononitrate 5-08 tablets by it y of 60 mg 24 hr 00:00: mouth [place] tablet 00 daily. Medical Branch isosorbide 2020-0 Yes [id number] 90mg Take 1.5 [facility] mononitrate 5-08 tablets by it y of 60 mg 24 hr 00:00: mouth [place] tablet 00 daily. Medical Branch isosorbide 2020-0 Yes [id number] 90mg Take 1.5 [facility] mononitrate 5-08 tablets by it y of 60 mg 24 hr 00:00: mouth [place] tablet 00 daily. Medical Branch isosorbide 2020-0 Yes [id number] 90mg Take 1.5 [facility] mononitrate 5-08 tablets by it y of 60 mg 24 hr 00:00: mouth [place] tablet 00 daily. [facility] Branch isosorbide 2020-0 2021- No [id number] 90mg Take 1.5 [facility] mononitrate 5-08 12-18 tablets by i ty of 60 mg 24 hr 00:00: 00:00 mouth [place] tablet 00 :00 daily. [facility] Branch acetaminoph 2020-0 2020- No [id number] 975mg Take 3 Univers en 325 mg 5-08 05-19 tablets by ity of tablet 00:00: 04:59 mouth [place] 00 :00 every 8 Medical (eight) Branch hours for 10 days. acetaminoph 2020-0 2020- No [id number] 975mg Take 3 Univers en 325 mg 5-08 05-19 tablets by ity of tablet 00:00: 04:59 mouth [place] 00 :00 every 8 Medical (eight) Branch hours for 10 days. acetaminoph 2020-0 2020- No [id number] 975mg Take 3 Univers en 325 mg 5-08 05-19 tablets by ity of tablet 00:00: 04:59 mouth [place] 00 :00 every 8 Medical (eight) Branch hours for 10 days. acetaminoph 2020-0 2020- No [id number] 975mg Take 3 Univers en 325 mg 5-08 05-19 tablets by ity of tablet 00:00: 04:59 mouth [place] 00 :00 every 8 Medical (eight) Branch hours for 10 days. acetaminoph 2020-0 2020- No [id number] 975mg Take 3 Univers en 325 mg 5-08 05-19 tablets by ity of tablet 00:00: 04:59 mouth [place] 00 :00 every 8 Medical (eight) Branch hours for 10 days. lidocaine 5 2020-0 2020- No [id number] 1{patch Apply 1 [facility] % (700 5-08 05-09 } Patch to ity of mg/patch) 00:00: 04:59 area(s) [place] patch 00 :00 once now Medical for 1 Branch dose. lidocaine 5 2020-0 2020- No [id number] 1{patch Apply 1 [facility] % (700 5-08 05-09 } Patch to ity of mg/patch) 00:00: 04:59 area(s) [place] patch 00 :00 once now Medical for 1 Branch dose. lidocaine 5 2020-0 2020- No [id number] 1{patch Apply 1 [facility] % (700 5-08 05-08 } Patch to ity of mg/patch) 00:00: 00:00 area(s) [place] patch 00 :00 once now Medical for 1 Branch dose. lidocaine 5 2020-0 2020- No [id number] 1{patch Apply 1 [facility] % (700 5-08 [...] [place] 00 First dose Medical on [facility] Branch 03/08/20 at 0900, Until Discontinu ed, Routine spironolact 2020-0 2020- No [id number] 12.5mg Take 0.5 Univers one 25 mg 4-23 05-24 tablets by ity of tablet 00:00: 04:59 mouth [place] 00 :00 daily for Medical 30 days. Branch spironolact 2020- No [id number] 12.5mg Take 0.5 Univers one 25 mg 4-23 05-24 tablets by ity of tablet 00:00: 04:59 mouth [place] 00 :00 daily for Medical 30 days. Branch spironolact 2020- No [id number] 12.5mg Take 0.5 Univers one 25 mg 4-23 05-24 tablets by ity of tablet 00:00: 04:59 mouth [place] 00 :00 daily for Medical 30 days. Branch spironolact 2020- No [id number] 12.5mg Take 0.5 Univers one 25 mg 4-23 05-07 tablets by ity of tablet 00:00: 00:00 mouth [place] 00 :00 daily for Medical 30 days. Branch spironolact 2020- No [id number] 12.5mg Take 0.5 Univers one 25 mg [...] 2019-0 Yes Take by Uni vers ann, - [...] 81mg Take 81 mg Univers mg chewable -22 -22 by mouth ity of tablet 20:15: 00:00 daily. [place] 29 :00 Medical Branch atorvastati 2019-0 2020- No 40mg Take 40 mg Univers n 40 mg -22 -22 by mouth ity of tablet 20:15: 00:00 at [place] 29 :00 bedtime. Medical Branch temazepam 2020-0 Yes 15mg 15 mg, Univer s (RESTORIL) 4-22 Oral, ity of capsule 15 01:55: QHSPRN, [place] mg 38 Starting Medical Tue Branch 03/06/20 at 2054, Until Discontinu ed, Routine, Insomnia Insulin 2020-0 Yes [id number] 10U inject 10 Univers Glargine 4-22 Units ity of 100 unit/mL 00:00: under the [place] (3 mL) 00 skin at Medical injection bedtime. Branch temazepam 2020-0 Yes [id number] 15mg Take 1 Un mel 15 mg 4-22 capsule by ity of capsule 00:00: mouth at [place] 00 bedtime as Medical needed for Branch Insomnia. furosemide 2020-0 Yes [id number] 40mg Take 1 [facility] 40 mg 4-22 tablet by ity of tablet 00:00: mouth [place] 00 every Medical morning Branch and evening. Magnesium 2020-0 Yes [id number] 400mg Take 400 Univers Oxide 420 4-22 mg by ity of mg Tab 00:00: mouth [place] 00 daily. Medical Branch potassium 2020-0 Yes [id number] 20meq Take 20 Univers chloride 20 4-22 mEq by ity of mEq packet 00:00: mouth [place] 00 daily. Medical Take with Branch lasix in the morning isosorbide 2020-0 Yes [id number] 15mg Take 0.5 Univers mononitrate 4-22 tablets by it y of 30 mg 24 hr 00:00: mouth [place] tablet 00 daily. Medical Hold if Branch systolic blood pressure less than 120 Insulin 2020-0 Yes [id number] 10U inject 10 [facility] Glargine 4-22 Units ity of 100 unit/mL 00:00: under the [place] (3 mL) 00 skin at Medical injection bedtime. Branch temazepam 2020-0 Yes [id number] 15mg Take 1 Un mel 15 mg 4-22 capsule by ity of capsule 00:00: mouth at [place] 00 bedtime as Medical needed for Branch Insomnia. furosemide 2020-0 Yes [id number] 40mg Take 1 Univers 40 mg 4-22 tablet by ity of tablet 00:00: mouth [place] 00 every Medical morning Branch and evening. Magnesium 2020-0 Yes [id number] 400mg Take 400 Univers Oxide 420 4-22 mg by ity of mg Tab 00:00: mouth [place] 00 daily. Medical Branch potassium 2020-0 Yes [id number] 20meq Take 20 Univers chloride 20 4-22 mEq by ity of mEq packet 00:00: mouth [place] 00 daily. Medical Take with Branch lasix in the morning isosorbide 2020-0 Yes [id number] 15mg Take 0.5 [facility] mononitrate 4-22 tablets by it y of 30 mg 24 hr 00:00: mouth [place] tablet 00 daily. Medical Hold if Branch systolic blood pressure less than 120 Insulin 2020-0 Yes [id number] 10U inject 10 [facility] Glargine 4-22 Units ity of 100 unit/mL 00:00: under the [place] (3 mL) 00 skin at Medical injection bedtime. Branch temazepam 2020-0 Yes [id number] 15mg Take 1 Un mel 15 mg 4-22 capsule by ity of capsule 00:00: mouth at [place] 00 bedtime as Medical needed for Branch Insomnia. furosemide 2020-0 Yes [id number] 40mg Take 1 Univers 40 mg 4-22 tablet by ity of tablet 00:00: mouth [place] 00 every Medical morning Branch and evening. Magnesium 2020-0 Yes [id number] 400mg Take 400 Univers Oxide 420 4-22 mg by ity of mg Tab 00:00: mouth [place] 00 daily. Medical Branch potassium 2020-0 Yes [id number] 20meq Take 20 Univers chloride 20 4-22 mEq by ity of mEq packet 00:00: mouth [place] 00 daily. Medical Take with Branch lasix in the morning isosorbide 2019-0 Yes [id number] 15mg Take 0.5 [facility] mononitrate 4-22 tablets by it y of 30 mg 24 hr 00:00: mouth [place] tablet 00 daily. Medical Hold if Branch systolic blood pressure less than 120 Insulin 2019-0 Yes [id number] 10U inject 10 [facility] Glargine 4-22 Units ity of 100 unit/mL 00:00: under the [place] (3 mL) 00 skin at Medical injection bedtime. Branch Magnesium 2019- Yes [id number] 400mg Take 400 Univers Oxide 420 4-22 mg by ity of mg Tab 00:00: mouth [place] 00 daily. Medical Branch vitamin 2019- 2020- No [id number] 1000ug Take 1 Univers B-12 1,000 4-22 07-22 tablet by ity of mcg tablet 00:00: 04:59 mouth [place] 00 :00 daily for Medical 90 days. Branch vitamin 2019- 2020- No [id number] 1000ug Take 1 Univers B-12 1,000 4-22 07-22 tablet by ity of mcg tablet 00:00: 04:59 mouth [place] 00 :00 daily for Medical 90 days. Branch vitamin 2019- 2020- No [id number] 1000ug Take 1 Univers B-12 1,000 4-22 07-22 tablet by ity of mcg tablet 00:00: 04:59 mouth [place] 00 :00 daily for Medical 90 days. [place] vitamin 2020- No [id number] 1000ug Take 1 Univers B-12 1,000 4-22 07-22 tablet by ity of mcg tablet 00:00: 04:59 mouth [place] 00 :00 daily for Medical 90 days. Branch glipiZIDE 5 2020- No [id number] 2.5mg Take 0.5 Univers mg tablet 03-07-23 tablets by ity of 00:00: 04:59 mouth 2 [place] 00 :00 (two) Medical times [place] daily before breakfast and dinner for 30 days. metoprolol 2020- No [id number] 25mg Take 1 Univers succinate - 05-23 tablet by ity of XL 25 mg 24 00:00: 04:59 mouth 2 [place] hr tablet 00 :00 (two) Medical times [place] daily for 30 days. OLANZapine 2019- 2020- No [id number] 2.5mg Take 1 Univers 2.5 mg 4-22 05-23 tablet by ity of tablet 00:00: 04:59 mouth at [place] 00 :00 bedtime Medical for 30 Branch days. ranolazine 2020-0 2020- No [id number] 1000mg Take 2 Univers 500 mg 12 4-22 05-23 tablets by ity of hr tablet 00:00: 04:59 mouth [place] 00 :00 every 12 Medical (twelve) Branch hours for 30 days. aspirin 81 2019-0 2020- No [id number] 81mg Take 1 Univers mg chewable 4-22 05-23 tablet by it y of tablet 00:00: 04:59 mouth [place] 00 :00 daily with Medical breakfast Branch for 30 days. atorvastati 2019-0 2020- No [id number] 40mg Take 1 Univers n 40 mg 4-22 05-23 tablet by ity of tablet 00:00: 04:59 mouth at [place] 00 :00 bedtime Medical for 30 Branch days. glipiZIDE 5 2019- 2020- No [id number] 2.5mg Take 0.5 Univers mg tablet 4-22 05-23 tablets by ity of 00:00: 04:59 mouth 2 [place] 00 :00 (two) Medical times Branch daily before breakfast and dinner for 30 days. metoprolol 2019-0 2020- No [id number] 25mg Take 1 Univers succinate 4-22 05-23 tablet by ity of XL 25 mg 24 00:00: 04:59 mouth 2 [place] hr tablet 00 :00 (two) Medical times Branch daily for 30 days. OLANZapine 2019-0 2020- No [id number] 2.5mg Take 1 Univers 2.5 mg 4-22 05-23 tablet by ity of tablet 00:00: 04:59 mouth at [place] 00 :00 bedtime Medical for 30 Branch days. ranolazine 2020-0 2020- No [id number] 1000mg Take 2 Univers 500 mg 12 4-22 05-23 tablets by ity of hr tablet 00:00: 04:59 mouth [place] 00 :00 every 12 Medical (twelve) Branch hours for 30 days. aspirin 81 2019-0 2020- No [id number] 81mg Take 1 Univers mg chewable 4-22 05-23 tablet by it y of tablet 00:00: 04:59 mouth [place] 00 :00 daily with Medical breakfast Branch for 30 days. atorvastati 2020-0 2020- No [id number] 40mg Take 1 Univers n 40 mg 4- 05-23 tablet by ity of tablet 00:00: 04:59 mouth at [place] 00 :00 bedtime Medical for 30 Branch days. glipiZIDE 5 2020- No [id number] 2.5mg Take 0.5 Univers mg tablet - 05-23 tablets by ity of 00:00: 04:59 mouth 2 [place] 00 :00 (two) Medical times Branch daily before breakfast and dinner for 30 days. metoprolol 2019- 2020- No [id number] 25mg Take 1 Univers succinate 4-22 05-23 tablet by ity of XL 25 mg 24 00:00: 04:59 mouth 2 [place] hr tablet 00 :00 (two) Medical times Branch daily for 30 days. OLANZapine 2019- 2020- No [id number] 2.5mg Take 1 Univers 2.5 mg - 05-23 tablet by ity of tablet 00:00: 04:59 mouth at [place] 00 :00 bedtime Medical for 30 Branch days. ranolazine 2019- 2020- No [id number] 1000mg Take 2 Univers 500 mg 12 - 05-23 tablets by ity of hr tablet 00:00: 04:59 mouth [place] 00 :00 every 12 Medical (twelve) Branch hours for 30 days. aspirin 81 2019- 2020- No [id number] 81mg Take 1 Univers mg chewable - 05-23 tablet by it y of tablet 00:00: 04:59 mouth [place] 00 :00 daily with Medical breakfast Branch for 30 days. atorvastati 2019- 2020- No [id number] 40mg Take 1 Univers n 40 mg - 05-23 tablet by ity of tablet 00:00: 04:59 mouth at [place] 00 :00 bedtime Medical for 30 Branch days. glipiZIDE 5 2019- 2020- No [id number] 2.5mg Take 0.5 Univers mg tablet - 05-23 tablets by ity of 00:00: 04:59 mouth 2 [place] 00 :00 (two) Medical times Branch daily before breakfast and dinner for 30 days. metoprolol 2019- 2020- No [id number] 25mg Take 1 Univers succinate 4-22 05-23 tablet by ity of XL 25 mg 24 00:00: 04:59 mouth 2 [place] hr tablet 00 :00 (two) Medical times Branch daily for 30 days. ranolazine 2019- 2020- No [id number] 1000mg Take 2 Univers 500 mg 12 03-07-23 tablets by ity of hr tablet 00:00: 04:59 mouth [place] 00 :00 every 12 Medical (twelve) Branch hours for 30 days. atorvastati 2019-2019- No [id number] 40mg Take 1 Univers n 40 mg 03-07-23 tablet by ity of tablet 00:00: 04:59 mouth at [place] 00 :00 bedtime Medical for 30 Branch days. furosemide 2019- 2020- No [id number] 40mg Take 1 Univers 40 mg 03-07-08 tablet by ity of tablet 00:00: 00:00 mouth [place] 00 :00 every Medical morning Branch and evening. aspirin 81 2019-2019- No [id number] 81mg Take 1 Univers mg chewable 03-07-08 tablet by it y of tablet 00:00: 00:00 mouth [place] 00 :00 daily with Medical breakfast Branch for 30 days. isosorbide 2019- No [id number] 15mg Take 0.5 Univers mononitrate 03-07-08 tablets by i ty of 30 mg 24 hr 00:00: 00:00 mouth [place] tablet 00 :00 daily. Medical Hold if Branch systolic blood pressure less than 120 Insulin 2019-2019- No [id number] 10U inject 10 Univers Glargine 03-07-08 Units ity of 100 unit/mL 00:00: 00:00 under the [place] (3 mL) 00 :00 skin at Medical injection bedtime. Branch glipiZIDE 5 2019- No [id number] 2.5mg Take 0.5 Univers mg tablet 03-07-08 tablets by ity of 00:00: 00:00 mouth 2 [place] 00 :00 (two) Medical times Branch daily before breakfast and dinner for 30 days. metoprolol 2019-2019- No [id number] 25mg Take 1 Univers succinate 03-07 05-08 tablet by ity of XL 25 mg 24 00:00: 00:00 mouth 2 [place] hr tablet 00 :00 (two) Medical times Branch daily for 30 days. ranolazine 2019- No [id number] 1000mg Take 2 Univers 500 mg 12 - 05-08 tablets by ity of hr tablet 00:00: 00:00 mouth [place] 00 :00 every 12 Medical (twelve) Branch hours for 30 days. furosemide 2019- No [id number] 40mg Take 1 [facility] 40 mg - 05-08 tablet by ity of tablet 00:00: 00:00 mouth [place] 00 :00 every Medical morning Branch and evening. aspirin 81 2019- No [id number] 81mg Take 1 [facility] mg chewable - 05-08 tablet by it y of tablet 00:00: 00:00 mouth [place] 00 :00 daily with Medical breakfast Branch for 30 days. atorvastati 2019- No [id number] 40mg Take 1 Univers n 40 mg - 05-08 tablet by ity of tablet 00:00: 00:00 mouth at [place] 00 :00 bedtime Medical for 30 Branch days. Magnesium 2019- No [id number] 400mg Take 400 Univers Oxide 420 03-07 05-08 mg by ity of mg Tab 00:00: 00:00 mouth [place] 00 :00 daily. Medical Branch vitamin 2019-2019- No [id number] 1000ug Take 1 Univers B-12 1,000 - 05-08 tablet by ity of mcg tablet 00:00: 00:00 mouth [place] 00 :00 daily for Medical 90 days. Branch isosorbide 2019- No [id number] 15mg Take 0.5 Univers mononitrate 03-07-08 tablets by i ty of 30 mg 24 hr 00:00: 00:00 mouth [place] tablet 00 :00 daily. Medical Hold if Branch systolic blood pressure less than 120 OLANZapine 2019-2019- No [id number] 2.5mg Take 1 Univers 2.5 mg 03-07 05-07 tablet by ity of tablet 00:00: 00:00 mouth at [place] 00 :00 bedtime Medical for 30 Branch days. temazepam 2019- No [id number] 15mg Take 1 U nivers 15 mg 03-07 05-07 capsule by ity of capsule 00:00: 00:00 mouth at [place] 00 :00 bedtime as Medical needed for Branch Insomnia. potassium 2019- No [id number] 20meq Take 20 Univers chloride 20 4-22 05-07 mEq by ity o f mEq packet 00:00: 00:00 mouth [place] 00 :00 daily. Medical Take with Branch lasix in the morning OLANZapine 2020-0 2020- No [id number] 2.5mg Take 1 Univers 2.5 mg 03-07- tablet by ity of tablet 00:00: 00:00 mouth at [place] 00 :00 bedtime Medical for 30 Branch days. temazepam 2019- 2020- No [id number] 15mg Take 1 U nivers 15 mg 03-07- capsule by ity of capsule 00:00: 00:00 mouth at [place] 00 :00 bedtime as Medical needed for Branch Insomnia. potassium 2019- 2020- No [id number] 20meq Take 20 Univers chloride 20 03-07- mEq by ity o f mEq packet 00:00: 00:00 mouth [place] 00 :00 daily. Medical Take with Branch lasix in the morning isosorbide 2019-0 2020- No 60mg 60 mg, Univ ers mononitrate 03-06 04- Oral, ity of (IMDUR) 24 14:00: 13:43 DAILY, [place] hr tablet 00 :56 First dose Medi birdie 60 mg on Thu [place] 03/06/20 at 0900, Until Discontinu ed, Routine OLANZapine 2020-0 Yes 2.5mg 2.5 mg, Uni vers (ZyPREXA) - Oral, QHS, ity of tablet 2.5 02:00: First dose [place] mg 00 on [facility] 03/05/20 at Branch 2100, Until Discontinu ed, Routine insulin 2019-0 Yes 10U 10 Units, Unive rs glargine 03-06 Subcutaneo ity o f (LANTUS 02:00: us, QHS, [place] U-100) 00 First dose Medical injection on Thu [place] 10 Units 03/05/20 at 2100, Until Discontinu ed, Routine donepezil 2020-0 Yes 5mg 5 mg, Univers (ARICEPT) - Oral, QHS, ity of tablet 5 mg 02:00: First dose [place] 00 on [facility] 03/05/20 at Branch 2100, Until Discontinu ed, Routine atorvastati 2020-0 Yes 40mg 40 mg, Univ ers n (LIPITOR) 4- Oral, QHS, it y of tablet 40 02:00: First dose [place] mg 00 on [facility] Medical 03/05/20 at Branch 2100, Until Discontinu ed, Routine isosorbide 2020-0 2020- No 30mg 30 mg, Univ ers mononitrate 03-05-20 Oral, ity of (IMDUR) 24 15:30: 15:21 ONCE, 1 [place] as hr tablet 00 :00 dose, [facility] Medic al 30 mg 03/05/20 at Branch 1030, Routine spironolact 2020-0 Yes 12.5mg 12.5 mg, Univers one 4-20 Oral, ity of (ALDACTONE) 14:00: DAILY, [place] tablet 12.5 00 First dose Me dical mg on [facility] 03/05/20 at 0900, Until Discontinu ed, Routine memantine 2020-0 Yes 10mg 10 mg, Univer s (NAMENDA) -20 Oral, ity of tablet 10 14:00: DAILY, [place] mg 00 First dose Medical on [facility] [facility]20 at 0900, Until Discontinu ed, Routine
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 Restricted medication : [facility] lisinopril 2020-0 2020- No 5mg 5 mg, Unive rs (PRINIVIL,Z 03-05 Oral, ity of ESTRIL) 14:00: 13:44 DAILY, [place] tablet 5 mg 00 :01 First dose Me dical on [facility] 03/05/20 at 0900, Until Discontinu ed, Routine isosorbide 2020-0 2020- No 30mg 30 mg, Univ ers mononitrate 03-05- Oral, ity of (IMDUR) 24 14:00: 14:20 DAILY, [place] tablet 00 :04 First dose Medi birdie 30 mg on [facility] 03/05/20 at 0900, Until Discontinu ed, Routine ranolazine 2020-0 Yes 500mg 500 mg, Uni vers (RANEXA) 12 4-20 Oral, ity of hr tablet 13:00: Q12H, [place] 500 mg 00 First dose Medical on [facility] 03/05/20 at 0800, Until Discontinu ed, Routine metoprolol 2020-0 Yes 25mg 25 mg, Unive rs succinate 4-20 Oral, BID, ity of XL (TOPROL 13:00: First dose [place] XL) tablet 00 on [facility] 25 mg 03/05/20 at Branch [...] as 00 :44 First dose Medical on [facility] Branch 03/05/20 at 0730, Until Discontinu ed, Routine glucagon 2020-0 Yes 1mg 1 mg, Univers (GLUCAGEN 4-20 Intramuscu ity of DIAGNOSTIC 03:02: [place], PRN, [place] KIT) 42 Starting Medical injection 1 [place] Branch mg 03/04/20 at 2202, Until Discontinu ed, ADAMA, Blood Glucose < or = 70 mg/dL and patient is unable to swallow or has mental changes. dextrose 50 2020-0 Yes 25mL 25 mL, Univ ers % in water 4-20 Slow IV ity of (D50W) 03:02: Push, PRN, [place] injection 42 Starting Medica l 25 mL [place] Branch 03/04/20 at 2202, Until Discontinu ed, ADAMA, Blood Glucose < or = 70 mg/dL and patient is unable to swallow or has mental status changes. furosemide 2020-0 Yes 40mg 40 mg, Unive rs (LASIX) 4-20 Oral, ity of tablet 40 03:00: QAM+PM, [place] mg 00 First dose Medical on [facility] 03/04/20 at 2200, Until Discontinu ed, Routine cyanocobala 2020-0 Yes 1000ug 1,000 mcg, Univers min 4-20 Subcutaneo ity of (VITAMIN 03:00: [place], Q24H, [place] B12) 00 First dose Medical injection on [place] [facility] 1,000 mcg 03/04/20 at 2200, Until Discontinu ed, Routine heparin 2020-0 Yes 5000U 5,000 Univers (porcine) 4-20 Units, ity of injection 03:00: Subcutaneo [place] 5,000 Units 00 us, Q8H, Medi birdie First dose Branch on [place] 03/04/20 at 2200, Until Discontinu ed, Routine ondansetron 2020-0 Yes 4mg 4 mg, Slow Univers (ZOFRAN 4-20 IV Push, ity of (PF)) 02:34: Q6HPRN, [place] injection 4 40 Starting Medi birdie mg [facility] 03/04/20 at 2134, Until Discontinu ed, Routine, Nausea and Vomiting (N/V) traMADol 2019-0 2020- No 50mg 50 mg, Univer s (ULTRAM) 4-20 04-22 Oral, ity of tablet 50 02:34: 02:33 Q8HPRN, [place] mg 23 :23 Starting Medical [facility] 03/04/20 at 2134, Until 03/06/20 at 2133, Routine, Pain (scale 4-6) acetaminoph 2020-0 Yes 650mg 650 mg, Un mel en 4-20 Oral, ity of (TYLENOL) 02:34: Q6HPRN, [place] tablet 650 20 Starting Medic al mg [facility] 03/04/20 at 2134, Until Discontinu ed, Routine, Pain (scale 1-3) lisinopril 2020-0 Yes [id number] 5mg Take 1 Univers 5 mg tablet 4-18 tablet by ity of 00:00: mouth [place] 00 daily. Medical Branch isosorbide 2020-0 Yes [id number] 30mg Take 1 Univers mononitrate 4-18 tablet by ity of 30 mg 24 hr 00:00: mouth [place] tablet 00 daily. Medical Branch lisinopril 2020-0 Yes [id number] 5mg Take 1 Univers 5 mg tablet 4-18 tablet by ity of 00:00: mouth [place] 00 daily. Medical Branch isosorbide 2020-0 Yes [id number] 30mg Take 1 Univers mononitrate 4-18 tablet by ity of 30 mg 24 hr 00:00: mouth [place] tablet 00 daily. Medical Branch lisinopril 2020-0 2020- No [id number] 5mg Take 1 Univers 5 mg tablet 4-18 -22 tablet by it y of 00:00: 00:00 mouth [place] 00 :00 daily. Medical Branch isosorbide 2020-0 2020- No [id number] 30mg Take 1 Univers mononitrate 4-18 -22 tablet by it y of 30 mg 24 hr 00:00: 00:00 mouth [place] tablet 00 :00 daily. Medical Branch memantine-d 2020-0 Yes 1{capsu Take 1 U nivers onepezil 4-17 le} capsule by ity o f (NAMZARIC) 17:34: mouth [place] 28-10 mg 27 daily. Medical CSpX Branch folic 2020-0 Yes Take by Univers acid/vit B 4-17 mouth. ity of complex and 17:34: [place] C ( 27 Medical COMPLEX-VIT Branch RAZA C-FOLIC ACID ORAL) Cholecalcif 2019-0 Yes Take by Uni vers ann, 4-17 mouth. ity of Vitamin D3, 17:34: [place] 2,000 unit 27 Medical capsule Branch metoprolol 2020-0 Yes 12.5mg Take 12.5 Univers tartrate 4-17 mg by ity of 12.5 mg 17:34: mouth 2 [place] 27 (two) Medical times Branch daily. MULTIVITAMI 2020-0 Yes Take by Uni vers N ORAL 4-17 mouth. ity of 17:34: [place] [address] Medical Branch thiamine 2020-0 Yes 100mg Take 100 Univ ers (VITAMIN 4-17 mg by ity of B-1) 100 mg 17:34: mouth [place] tablet 27 daily. Medical Branch aspirin 81 2020-0 Yes 81mg Take 81 mg U nivers mg chewable 4-17 by mouth ity of tablet 17:34: daily. [place] [address] Medical Branch atorvastati 2020-0 Yes 40mg Take 40 mg Univers n 40 mg 4-17 by mouth ity of tablet 17:34: at [place] [address] bedtime. Medical Branch NaCl 0.9% 2020-0 Yes [...] Branch daily. MULTIVITAMI 2019-0 Yes Take by Uni vers N ORAL 4-17 mouth. ity of 17:34: [place] [address] Medical Branch thiamine 2019-0 Yes 100mg Take 100 Univ ers (VITAMIN 4-17 mg by ity of B-1) 100 mg 17:34: mouth [place] tablet 27 daily. Medical Branch aspirin 81 2020-0 Yes 81mg Take 81 mg U nivers mg chewable 4-17 by mouth ity of tablet 17:34: daily. [place] [address] Medical Branch atorvastati 2019-0 Yes 40mg Take 40 mg Univers n 40 mg 4-17 by mouth ity of tablet 17:34: at [place] [address] bedtime. Medical Branch NaCl 0.9% 2020-0 Yes 10mL Inject 10 Uni vers (NS) Soln 4-17 mL ity of 10 mL with 17:34: intravenou [place] sodium 27 sly once Medical chloride now. Branch 2.5 mEq/mL SolP 17.125 mEq potassium 2019-0 2020- No 20meq Take 20 Uni vers chloride 20 4-17 04-17 mEq by ity o f mEq packet 15:53: 00:00 mouth [place] 05 :00 daily. Medical Branch donepezil 2020-0 Yes 5mg 5 mg, Univers (ARICEPT) 4-17 Oral, QHS, ity of tablet 5 mg 02:00: First dose [place] 00 on [facility] 03/01/20 at Branch 2100, Until Discontinu ed, Routine furosemide 2020-0 Yes [id number] 40mg Take 1 Univers 40 mg 4-17 tablet by ity of tablet 00:00: mouth [place] 00 every Medical morning Branch and evening. potassium 2020-0 Yes [id number] 20meq Take 20 Univers chloride 20 4-17 mEq by ity of mEq packet 00:00: mouth [place] 00 daily. Medical Branch vitamin 2020-0 Yes [id number] 1000ug Take 1 U nivers B-12 1,000 4-17 tablet by ity of mcg tablet 00:00: mouth [place] 00 daily. Medical Branch furosemide 2020-0 Yes [id number] 40mg Take 1 Univers 40 mg 4-17 tablet by ity of tablet 00:00: mouth [place] 00 every Medical morning Branch and evening. potassium 2020-0 Yes [id number] 20meq Take 20 Univers chloride 20 4-17 mEq by ity of mEq packet 00:00: mouth [place] 00 daily. Medical Branch vitamin 2020-0 Yes [id number] 1000ug Take 1 U nivers B-12 1,000 4-17 tablet by ity of mcg tablet 00:00: mouth [place] 00 daily. [facility] Branch furosemide 2020-0 2020- No [id number] 40mg Take 1 Univers 40 mg 4-17 04-22 tablet by ity of tablet 00:00: 00:00 mouth [place] 00 :00 every Medical morning Branch and evening. potassium 2020-0 2020- No [id number] 20meq Take 20 Univers chloride 20 4-17 04-22 mEq by ity o f mEq packet 00:00: 00:00 mouth [place] 00 :00 daily. [facility] Branch vitamin 2020-0 2020- No [id number] 1000ug Take 1 Univers B-12 1,000 4-17 04-22 tablet by ity of mcg tablet 00:00: 00:00 mouth [place] 00 :00 daily. [facility] Branch cyanocobala 2020-0 Yes 1000ug 1,000 mcg, Univers min -16 Subcutaneo ity of (VITAMIN 20:45: [place], Q24H, [place] B12) 00 First dose Medical injection on [facility] 1,000 mcg 03/01/20 at 1545, Until Discontinu ed, Routine isosorbide 2020-0 Yes 30mg 30 mg, Unive rs mononitrate 4-16 Oral, ity of (IMDUR) 24 14:00: DAILY, [place] hr tablet 00 First dose Medi birdie 30 mg on [facility] 03/01/20 at 0900, Until Discontinu ed, Routine memantine 2020-0 Yes 10mg 10 mg, Univer s (NAMENDA) 4-16 Oral, ity of tablet 10 14:00: DAILY, [place] mg 00 First dose Medical on [facility] 03/01/20 at 0900, Until Discontinu ed, Routine
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 Restricted medication : [facility] lisinopril 2020-0 Yes 5mg 5 mg, Univer s (PRINIVIL,Z -16 Oral, ity of ESTRIL) 14:00: DAILY, [place] tablet 5 mg 00 First dose Me dical on [facility] 03/01/20 at [...] First dose [place] 40 mEq 00 on [facility] 03/01/20 at Branch 0830, Until Discontinu ed, Routine magnesium 2020-0 2020- No 2g 2 g, IV Univ ers sulfate in 03-01 Infusion, ity of water 2 03:30: 03:30 ONCE, 1 [place] gram/50 mL 00 :00 dose, Wed Medi birdie (4 %) 2 g 02/29/20 at [facility] piggyback 2230 metoprolol 2020-0 2020- No 5mg 5 mg, Slow Univers (LOPRESSOR) 4-16 04-16 IV Push, ity of injection 5 03:30: 03:37 ONCE, 1 [place] mg 00 :00 dose, Thu Medical 02/29/20 at Branch 2230, ADAMA glipiZIDE 2020-0 Yes 5mg 5 mg, Univers (GLUCOTROL) 4-16 Oral, ity of tablet 5 mg 02:45: BIDAC, [place] 00 First dose Medical on Thu Branch 02/29/20 at 2145, Until Discontinu ed, Routine [...] dose [place] mg 00 on Thu [facility] 02/29/20 at Branch 2145, Until [...] [place] XL) tablet 00 on Thu [facility] 25 mg 02/29/20 at Branch 2130, Until Discontinu ed, Routine atorvastati 2020-0 Yes 40mg 40 mg, Univ ers n (LIPITOR) 4-16 Oral, QHS, it y of tablet 40 02:30: First dose [place] mg 00 on Thu [facility] 02/29/20 at Branch 2130, Until Discontinu ed, [...] 2020- No 40meq 40 mEq, Univers (KLOR-CON - 04-16 Oral, ity of M20) tablet 01:00: 02:05 ONCE, 1 [place] 40 mEq 00 :00 dose, [facility] Medical 02/29/20 at Branch 2000, Routine acetaminoph 2020-0 Yes 650mg 650 mg, Un mel en -15 Oral, ity of (TYLENOL) 23:57: Q6HPRN, [place] tablet 650 25 Starting Medic al mg [facility] 02/29/20 at 1857, Until Discontinu ed, Routine, Pain (scale 1-3) NaCl 0.9% 2020-0 2020- No 500mL at 999 Univ ers (NS) bolus 02-28 04-15 mL/hr, 500 it y of infusion 23:30: 23:37 mL, IV [place] 500 mL 00 :00 Infusion, Medical ONCE, 1 Branch dose, [facility] 02/29/20 at 1830, ADAMA acetaminoph 2020-0 2020- No 650mg 650 mg, U nivers en 02-28-15 Oral, ity of (TYLENOL) 23:00: 22:36 ONCE, 1 [place] tablet 650 00 :00 dose, Thu Medi birdie mg 02/29/20 at Branch 1800, ADAMA donepezil 5 2020-0 Yes 5mg Take 5 mg U nivers mg tablet 4- by mouth ity of 00:00: daily. [place] [facility] donepezil 5 2020-0 2020- No 5mg Take 5 mg Univers mg tablet 02-14-08 by mouth ity o f 00:00: 00:00 daily. [place] 00 :00 Medical Branch nitroglycer 2019- No DISSOLVE U nivers in 0.4 mg 02-14 ONE TABLET ity of sublingual 00:00: 00:00 UNDER THE [place] tablet 00 :00 TONGUE Medical EVERY 5 Branch MINUTES NEEDED FOR CHEST PAIN. DO NOT EXCEED A TOTAL OF 3 DOSES IN 15 MINUTES KCL 10 mEq 2020- No 10meq Take 10 Un mel [...] N ORAL 3-03 mouth. ity of 23:00: [place] [address] Medical Branch thiamine 2020-0 Yes 100mg Take 100 Univ ers (VITAMIN 3-03 mg by ity of B-1) 100 mg 23:00: mouth [place] tablet 52 daily. Medical Branch aspirin 81 2020-0 Yes 81mg Take 81 mg U nivers mg chewable 3-03 by mouth ity of tablet 23:00: daily. [place] [address] Medical Branch atorvastati 2020-0 Yes 40mg Take 40 mg Univers n 40 mg 3-03 by mouth ity of tablet 23:00: at [place] [address] bedtime. Medical Branch NaCl 0.9% 2020-0 Yes 10mL Inject 10 Uni vers (NS) Soln 3-03 mL ity of 10 mL with 23:00: intravenou [place] sodium 52 sly once Medical chloride now. Branch 2.5 mEq/mL SolP 17.125 mEq memantine-d 2020-0 Yes 1{capsu Take 1 U nivers onepezil 3-03 le} capsule by ity o f (NAMZARIC) 23:00: mouth [place] 28-10 mg 52 daily. Medical CSpX Branch folic 2020-0 Yes Take by Univers acid/vit B 3-03 mouth. ity of complex and 23:00: [place] C ([facility] Medical COMPLEX-VIT Branch RAZA C-FOLIC ACID ORAL) potassium 2020-0 Yes 20meq Take 20 Univ ers chloride 20 3-03 mEq by ity of mEq packet 23:00: mouth [place] 52 daily. Medical Branch Cholecalcif 2020-0 Yes Take by Uni vers ann, 3-03 mouth. ity of Vitamin D3, 23:00: [place] 2,000 unit 52 Medical capsule Branch metoprolol 2020-0 Yes 12.5mg Take 12.5 Univers tartrate 3-03 mg by ity of 12.5 mg 23:00: mouth 2 [place] 52 (two) Medical times Branch daily. MULTIVITAMI 2020-0 Yes Take by Uni vers N ORAL 3-03 mouth. ity of 23:00: [place] [address] Medical Branch thiamine 2020-0 Yes 100mg Take 100 Univ ers (VITAMIN 3-03 mg by ity of B-1) 100 mg 23:00: mouth [place] tablet 52 daily. Medical Branch aspirin 81 2020-0 Yes 81mg Take 81 mg U nivers mg chewable 3-03 by mouth ity of tablet 23:00: daily. [place] [address] Medical Branch atorvastati 2020-0 Yes 40mg Take 40 mg Univers n 40 mg 3-03 by mouth ity of tablet 23:00: at [place] [address] bedtime. Medical Branch NaCl 0.9% 2020-0 Yes [...] by ity of mEq packet 23:00: mouth [place] 52 daily. Medical Branch Cholecalcif 2020-0 Yes Take by Uni vers ann, 3-03 mouth. ity of Vitamin D3, 23:00: [place] 2,000 unit Medical capsule Branch metoprolol 2020-0 Yes 12.5mg Take 12.5 Univers tartrate 3-03 mg by ity of 12.5 mg 23:00: mouth 2 [place] 52 (two) Medical times Branch daily. MULTIVITAMI 2020-0 Yes Take by Uni vers N ORAL 3-03 mouth. ity of 23:00: [place] [address] Medical Branch thiamine 2020-0 Yes 100mg Take 100 Univ ers (VITAMIN 3-03 mg by ity of B-1) 100 mg 23:00: mouth [place] tablet 52 daily. Medical Branch aspirin 81 2020-0 Yes 81mg Take 81 mg U nivers mg chewable 3-03 by mouth ity of tablet 23:00: daily. [place] [address] Medical Branch atorvastati 2020-0 Yes 40mg Take 40 mg Univers n 40 mg 3-03 by mouth ity of tablet 23:00: at [place] [address] bedtime. Medical Branch NaCl 0.9% 2020-0 Yes [...] ity of Vitamin D3, 23:00: [place] 2,000 [place] [address] Medical capsule Branch metoprolol 2020-0 Yes 12.5mg Take 12.5 Univers tartrate 3-03 mg by ity of 12.5 mg 23:00: mouth 2 [place] 52 (two) Medical times Branch daily. MULTIVITAMI 2020-0 Yes Take by Uni vers N ORAL 3-03 mouth. ity of 23:00: [place] [address] Medical Branch thiamine 2020-0 Yes 100mg Take 100 Univ ers (VITAMIN 3-03 mg by ity of B-1) 100 mg 23:00: mouth [place] tablet 52 daily. Medical Branch aspirin 81 2020-0 Yes 81mg Take 81 mg U nivers mg chewable 3-03 by mouth ity of tablet 23:00: daily. [place] [address] Medical Branch atorvastati 2020-0 Yes 40mg Take 40 mg Univers n 40 mg 3-03 by mouth ity of tablet 23:00: at [place] 52 bedtime. Medical Branch NaCl 0.9% 2020-0 [...] dose [place] mg 00 on Thu [facility] 01/16/20 at Branch 2100, Until Discontinu ed, Routine ranolazine 2020-0 2020- No [id number] 500mg Take 1 Univers 500 mg 12 01-16- tablet by ity of hr tablet 00:00: 04:59 mouth [place] 00 :00 every 12 Medical (twelve) Branch hours for 30 days. ranolazine 2020-0 2020- No [id number] 500mg Take 1 Univers 500 mg 12 01-16- tablet by ity of hr tablet 00:00: 04:59 mouth [place] 00 :00 every 12 Medical (twelve) Branch hours for 30 days. ranolazine 2020-0 2020- No [id number] 500mg Take 1 Univers 500 mg 01-16- tablet by ity of hr tablet 00:00: 04:59 mouth [place] 00 :00 every 12 Medical (twelve) Branch hours for 30 days. ranolazine 2020-0 2020- No [id number] 500mg Take 1 Univers 500 mg 01-16- tablet by ity of hr tablet 00:00: 04:59 mouth [place] 00 :00 every 12 Medical (twelve) Branch hours for 30 days. ranolazine 2020-0 Yes 500mg 500 mg, Uni vers (RANEXA) 01-15 Oral, ity of hr tablet 22:30: Q12H, [place] 500 mg 00 First dose Medical on [facility] 01/16/20 at 1630, Until Discontinu ed, Routine insulin 2020-0 Yes 30U 30 Units, Unive rs glargine 01-15 Subcutaneo ity o f (LANTUS 15:00: us, DAILY, [place] U-100) 00 First dose Medical injection on [facility] Branch 30 Units 01/16/20 at 0900, Until Discontinu ed furosemide 2020-0 Yes 40mg 40 mg, Unive rs (LASIX) 3 Oral, ity of tablet 40 15:00: DAILY, [place] mg 00 First dose Medical on [facility] 01/16/20 at 0900, Until Discontinu ed, Routine aspirin 2020-0 Yes 81mg 81 mg, Univers chewable 01-15 Oral, ity of tablet 81 15:00: DAILY, [place] mg 00 First dose Medical on [facility] 01/16/20 at 0900, Until Discontinu ed, Routine metoprolol 2020-0 Yes 12.5mg 12.5 mg, U nivers tartrate 02 Oral, BID, ity o f (LOPRESSOR) 14:00: First dose [place] tablet 12.5 00 on Thu Medica l mg 01/16/20 at Branch 0800, Until Discontinu ed, Routine Sliding 2020-0 Yes Subcutaneo Univ ers Scale 3-02 us, Q6H, ity of Insulin-Reg 12:00: First dose [place] ular + Fsbg 00 on Thu Medica l Testing 01/16/20 at Branch 0600, Until Discontinu ed, Routine glucagon 2019-0 Yes 1mg 1 mg, Univers (GLUCAGEN 01-15 [...] IV ity of (D50W) 10:52: Push, PRN, [place] injection 33 Starting Medica l 25 mL 01/16/20 Branch at 0452, Until Discontinu ed, ADAMA, Blood Glucose < or = 70 mg/dL and patient is unable to swallow or has mental status changes. nitroglycer 2019-0 Yes .4mg 0.4 mg, Uni vers in 01-15 Sublingual ity of (NITROSTAT) 07:57: , Q5MIN [place] sublingual 30 PRN, Medical tablet 0.4 Starting Branc h mg [facility] 01/16/20 at 0157, Until Discontinu ed, Routine, Chest pain ondansetron 2020-0 Yes 4mg 4 mg, Slow Univers (ZOFRAN 302 IV Push, ity of (PF)) 07:55: Q6HPRN, [place] injection 4 01 Starting Medi birdie mg [facility] 01/16/20 Branch at 0155, Until Discontinu ed, Routine, Nausea and Vomiting (N/V) morpHINE 2020-0 2020- No 2mg 2 mg, Slow Un mel injection 2 3 03-03 IV Push, ity of mg 07:54: 07:53 Q6HPRN, [place] 55 :55 Starting Medical [facility] 01/16/20 Branch at 0154, Until Tu01/17/20 at 0153, Routine, Pain (scale 7-10) traMADol 2020-0 2020- No 50mg 50 mg, Univer s (ULTRAM) 3- 03-04 Oral, ity of tablet 50 07:54: 07:53 Q8HPRN, [place] mg 47 :47 Starting Medical 01/16/20 Branch at 0154, Until Thu01/18/20 at 0153, Routine, Pain (scale 4-6) acetaminoph 2020-0 Yes 650mg 650 mg, Un mel en 02 Oral, ity of (TYLENOL) 07:54: Q6HPRN, [place] tablet 650 44 Starting Medic al mg 01/16/20 Branch at 0154, Until Discontinu ed, Routine, Pain (scale 1-3) insulin 2020-0 2020- No 8U 8 Units, Unive rs regular 01-15 03-02 Slow IV ity of human 06:45: 05:40 Push, [place] (HUMULIN R) 00 :00 ONCE, 1 Medic [...] 2020-0 2020- No 4000U 4,000 Univers 1000 - 03-02 Units, IV ity of unit/mL 05:45: [...] tablet 00 nightly. l furosemide 2018-11 Yes [id number] 40mg Take 1 Univers 40 mg 0-26 tablet by ity of tablet 00:00: mouth [place] 00 daily. Medical Branch furosemide 2018-11 Yes [id number] 40mg Take 1 Univers 40 mg 0-26 tablet by ity of tablet 00:00: mouth [place] 00 daily. Medical Branch furosemide 2018-11 Yes [id number] 40mg Take 1 Univers 40 mg 0-26 tablet by ity of tablet 00:00: mouth [place] 00 daily. Medical Branch furosemide 2018-11 Yes [id number] 40mg Take 1 Univers 40 mg 0-26 tablet by ity of tablet 00:00: mouth [place] 00 daily. Medical Branch furosemide 2018-11 2020- No [id number] 40mg Take 1 Univers 40 mg 0-26 04-17 tablet by ity of tablet 00:00: 00:00 mouth [place] 00 :00 daily. Medical Branch magnesium 2018-11 Yes [id number] 400mg Take 400 Univers oxide 420 0-23 mg by ity of mg Tab 00:00: mouth [place] 00 daily. Medical Branch magnesium 2018-11 Yes [id number] 400mg Take 400 Univers oxide 420 0-23 mg by ity of mg Tab 00:00: mouth [place] 00 daily. Medical Branch magnesium 2019- Yes [id number] 400mg Take 400 Univers oxide 420 0-23 mg by ity of mg Tab 00:00: mouth [place] 00 daily. Medical Branch magnesium 2019- Yes [id number] 400mg Take 400 Univers oxide 420 0-23 mg by ity of mg Tab 00:00: mouth [place] 00 daily. Medical Branch magnesium 2019- Yes [id number] 400mg Take 400 Univers oxide 420 0-23 mg by ity of mg Tab 00:00: mouth [place] 00 daily. Medical Branch magnesium 2019- Yes [id number] 400mg Take 400 Univers oxide 420 0-23 mg by ity of mg Tab 00:00: mouth [place] 00 daily. Medical Branch magnesium 2018- 2020- No [id number] 400mg Take 400 Univers oxide 420 0-23 04-22 mg by ity of mg Tab 00:00: 00:00 mouth [place] 00 :00 daily. Medical Branch Insulin 2019- Yes [id number] 30U inject 30 Univers Glargine 9-11 Units ity of 100 unit/mL 00:00: under the [place] (3 mL) 00 skin every Medical injection morning. Branch Insulin 2019-0 Yes [id number] 30U inject 30 Univers Glargine 9-11 Units ity of 100 unit/mL 00:00: under the [place] (3 mL) 00 skin every Medical injection morning. Branch Insulin 2019-0 Yes [id number] 30U inject 30 Univers Glargine 9-11 Units ity of 100 unit/mL 00:00: under the [place] (3 mL) 00 skin every Medical injection morning. Branch Insulin 2018-0 Yes [id number] 30U inject 30 Univers Glargine 9-11 Units ity of 100 unit/mL 00:00: under the [place] (3 mL) 00 skin every Medical injection morning. Branch Insulin 2018-0 Yes [id number] 30U inject 30 Univers Glargine 9-11 Units ity of 100 unit/mL 00:00: under the [place] (3 mL) 00 skin every Medical injection morning. Branch Insulin 2018-0 Yes [id number] 30U inject 30 Univers Glargine 9-11 Units ity of 100 unit/mL 00:00: under the [place] (3 mL) 00 skin every Medical injection morning. Branch Insulin 2018-0 Yes [id number] 30U inject 30 Univers Glargine 9-11 Units ity of 100 unit/mL 00:00: under the [place] (3 mL) 00 skin every Medical injection morning. Branch Insulin 2018-0 2020- No [id number] 30U inject 30 Univers Glargine 9-11 04-22 Units ity of 100 unit/mL 00:00: 00:00 under the [place] (3 mL) 00 :00 skin every Medical injection morning. Branch NAMZARIC 2019-0 Yes TAKE 1 [facility] 28-10 mg 6-[address] capsule,spr 00:00: MOUTH ONCE [facility] 00 DAILY l 24hr NAMZARIC 2019-0 Yes TAKE 1 [facility] 28-10 mg 6-[address] capsule,spr 00:00: MOUTH ONCE [facility] 00 DAILY l 24hr NAMZARIC 2019-0 Yes TAKE 1 [facility] 28-10 mg 6-[address] capsule,spr 00:00: MOUTH ONCE [facility] 00 DAILY l 24hr memantine-d Yes 1{capsu Take 1 U nivers onepezil 5-10 le} capsule by ity o f (NAMZARIC) 15:26: mouth [place] 28-10 mg 43 daily. Medical CSpX Branch enoxaparin Yes 30mg inject 30 Un mel injection 5-10 mg under ity of 15:26: the skin. [place] [address] Medical Branch Cholecalcif 0 Yes Take by Uni vers ann, 5-10 mouth. ity of Vitamin D3, 15:26: [place] 2,000 unit Medical capsule Branch metoprolol Yes 12.5mg Take 12.5 Univers tartrate 5-10 mg by ity of 12.5 mg 15:26: mouth 2 [place] [address] (two) Medical times Branch daily. MULTIVITAMI Yes Take by Uni vers N ORAL 5-10 mouth. ity of 15:26: [place] [address] Medical Branch thiamine 0 Yes 100mg Take 100 Univ ers (VITAMIN 5-10 mg by ity of B-1) 100 mg 15:26: mouth [place] tablet 43 daily. Medical Branch aspirin 81 Yes 81mg Take 81 mg U nivers mg chewable 5-10 by mouth ity of tablet 15:26: daily. [place] [address] Medical Branch atorvastati Yes 40mg Take 40 mg Univers n 40 mg 5-10 by mouth ity of tablet 15:26: at [place] [address] bedtime. Medical Branch furosemide 0 Yes 40mg Take 40 mg U nivers 40 mg 5-10 by mouth ity of tablet 15:26: daily. [place] [address] Medical Branch NaCl 0.9% 0 Yes 10mL [...] mg under ity of 15:26: the skin. [place] [address] Medical Branch Cholecalcif 2019-0 Yes Take by Uni vers ann, 5-10 mouth. ity of Vitamin D3, 15:26: [place] 2,000 unit 43 Medical capsule Branch metoprolol 2019-0 Yes 12.5mg Take 12.5 Univers tartrate 5-10 mg by ity of 12.5 mg 15:26: mouth 2 [place] 43 (two) Medical times Branch daily. MULTIVITAMI 2019-0 Yes Take by Uni vers N ORAL 5-10 mouth. ity of 15:26: [place] [address] Medical Branch thiamine 2018-0 Yes 100mg Take 100 Univ ers (VITAMIN 5-10 mg by ity of B-1) 100 mg 15:26: mouth [place] tablet 43 daily. Medical Branch aspirin 81 2019-0 Yes 81mg Take 81 mg U nivers mg chewable 5-10 by mouth ity of tablet 15:26: daily. [place] [address] Medical Branch atorvastati 2018-0 Yes 40mg Take 40 mg Univers n 40 mg 5-10 by mouth ity of tablet 15:26: at [place] 43 bedtime. Medical Branch furosemide 2018-0 Yes 40mg Take 40 mg U nivers 40 mg 5-10 by mouth ity of tablet 15:26: daily. [place] [address] Medical Branch NaCl 0.9% 2018-0 Yes 10mL Inject 10 Uni vers (NS) Soln 5-10 mL ity of 10 mL with 15:26: intravenou [place] sodium 43 sly once Medical chloride now. Branch 2.5 mEq/mL SolP 17.125 mEq insulin 2018-0 Yes [id number] 4U inject 4 U nivers lispro, 5-10 Units ity of human, 100 00:00: under the [place] unit/mL 00 skin 3 Medical injection (three) Branch times daily before meals. insulin 2019-0 Yes [id number] 4U inject 4 U nivers lispro, 5-10 Units ity of human, 100 00:00: under the [place] unit/mL 00 skin 3 Medical injection (three) Branch times daily before meals. insulin 2019-0 Yes [id number] 4U inject 4 U nivers lispro, 5-10 Units ity of human, 100 00:00: under the [place] unit/mL 00 skin 3 Medical injection (three) Branch times daily before meals. insulin 2019-0 Yes [id number] 4U inject 4 U nivers lispro, 5-10 Units ity of human, 100 00:00: under the [place] unit/mL 00 skin 3 Medical injection (three) Branch times daily before meals. insulin 2019-0 Yes [id number] 4U inject 4 U nivers lispro, 5-10 Units ity of human, 100 00:00: under the [place] unit/mL 00 skin 3 Medical injection (three) Branch times daily before meals. insulin 2019-0 Yes [id number] 4U inject 4 U nivers lispro, 5-10 Units ity of human, 100 00:00: under the [place] unit/mL 00 skin 3 Medical injection (three) Branch times daily before meals. Insulin 2019-0 Yes [id number] 18U inject Uni vers Glargine 5-10 18-24 ity of 100 unit/mL 00:00: Units [place] (3 mL) 00 under the Medical injection skin every Bran ch morning. insulin 2018-0 Yes [id number] 4U inject 4 U nivers lispro, 5-10 Units ity of human, 100 00:00: under the [place] unit/mL 00 skin 3 Medical injection (three) Branch times daily before meals. insulin 2018-0 Yes [id number] 4U inject 4 U nivers lispro, 5-10 Units ity of human, 100 00:00: under the [place] unit/mL 00 skin 3 Medical injection (three) Branch times daily before meals. insulin 2019-0 Yes [id number] 4U inject 4 U nivers lispro, 5-10 Units ity of human, 100 00:00: under the [place] unit/mL 00 skin 3 Medical injection (three) Branch times daily before meals. insulin 2019-0 Yes [id number] 4U inject 4 U nivers lispro, 5-10 Units ity of human, 100 00:00: under the [place] unit/mL 00 skin 3 Medical injection (three) Branch times daily before meals. insulin 2019-0 Yes [id number] 4U inject 4 U nivers lispro, 5-10 Units ity of human, 100 00:00: under the [place] unit/mL 00 skin 3 Medical injection (three) Branch times daily before meals. insulin 2020- No [id number] 4U inject 4 Univers lispro, 5-10 05-07 Units ity of human, 100 00:00: 00:00 [place] unit/mL 00 :00 skin 3 Medical injection (three) Branch times daily before meals. insulin 2020- No [id number] 4U inject 4 Univers lispro, 5-10 05-07 Units ity of human, 100 00:00: 00:00 under the [place] unit/mL 00 :00 skin 3 Medical injection (three) Branch times daily before meals. Insulin 2019- No [id number] 18U inject Un mel Glargine 5-10 09-11 [...] 3-08 mouth. ity of complex and 16:39: [facility] (B 29 Medical COMPLEX-VIT Branch RAZA C-FOLIC ACID ORAL) potassium Yes 20meq Take 20 Univ ers chloride 20 3-08 mEq by ity of mEq packet 16:39: mouth [place] 29 daily. Medical Branch folic Yes Take by Univers acid/vit B 3-08 mouth. ity of complex and 16:39: [place] [facility] (B 29 Medical COMPLEX-VIT Branch RAZA C-FOLIC ACID ORAL) potassium Yes 20meq Take 20 Univ ers chloride 20 3-08 mEq by ity of mEq packet 16:39: mouth [place] 29 daily. Medical Branch acetaminoph No Esteban G 1 tab, M emoria en-hydrocod 4-21 Jessika Route: PO, l one 325 16:50: Drug Form: Herm kathy mg-5 mg 00 TAB, Q4H, oral tablet PRN Pain, Start date: 03/06/13 11:50:00, Duration: 30 day, Stop date: 04/05/13 11:49:00 acetaminoph 2012-0 No Esteban G 1 tab, M emoria en-hydrocod 4-21 Jess[place] Route: PO, l one 325 16:50: Drug Form: Herm kathy mg-5 mg 00 TAB, Q4H, oral tablet PRN Pain, Start date: 03/06/13 11:50:00, Duration: 30 day, Stop date: 04/05/13 11:49:00 Bactroban 2012-0 No Esteban G 1 appl, Me moria 4-20 Jessika Route: l 17:00: TOP, [place] 00 Daily, Drug form: OINT, Start date: 03/05/13 12:00:00, Duration: 30 day, Stop date: 04/04/13 9:00:00 Bactroban 2012-0 No Esteban G 1 appl, Me moria 4-20 Jessika Route: l 17:00: TOP, [place] 00 Daily, Drug form: OINT, Start date: 03/05/13 12:00:00, Duration: 30 day, Stop date: 04/04/13 9:00:00 Aricept 2012-0 No Esteban G 5 mg, 1 Manjit greg 4-19 Jessika tab, l 14:00: Route: PO, Drug form: TAB, QAM, Start date: 03/04/13 9:00:00, Duration: 30 day, Stop date: 04/02/13 9:00:00 Lipitor 2012-0 No Esteban G 20 mg, 1 Mem oria 4-19 Jessika tab, l 14:00: Route: PO, Drug form: TAB, QAM, Start date: 03/04/13 9:00:00, Duration: 30 day, Stop date: 04/02/13 9:00:00 Amaryl 2012-0 No Esteban G 1 mg, 1 Memor ia 4-19 Jessika tab, l 14:00: Route: PO, Drug form: TAB, Daily, Start date: 03/04/13 9:00:00, Duration: 30 day, Stop date: 04/02/13 9:00:00 hydrochloro 2013-0 No Esteban G 12.5 mg, Memoria thiazide 25 4-19 Jessika 0.5 tab, l mg oral 14:00: Route: PO, Herm kathy tablet 00 Drug form: TAB, QAM, Start date: 03/04/13 9:00:00, Duration: 30 day, Stop date: 04/02/13 9:00:00 Prinivil 2012-0 No Esteban G 40 mg, 2 Me moria 4-19 Jessika tab, l 14:00: Route: PO, [place] 00 Drug form: TAB, QAM, Start date: 03/04/13 9:00:00, Duration: 30 day, Stop date: 04/02/13 9:00:00 Aricept 2013-0 No Esteban G 5 mg, 1 Manjit greg 4-19 Jess[place] tab, l 14:00: Route: PO, [place] 00 Drug form: TAB, QAM, Start date: 03/04/13 9:00:00, Duration: 30 day, Stop date: 04/02/13 9:00:00 Lipitor 2013-0 No Esteban G 20 mg, 1 Mem oria 4-19 [place] tab, l 14:00: Route: PO, [place] 00 Drug form: TAB, QAM, Start date: 03/04/13 9:00:00, Duration: 30 day, Stop date: 04/02/13 9:00:00 Amaryl 2013-0 No Esteban G 1 mg, 1 Memor ia 4-19 Jessika tab, l 14:00: Route: PO, [place] 00 Drug form: TAB, Daily, Start date: 03/04/13 9:00:00, Duration: 30 day, Stop date: 04/02/13 9:00:00 hydrochloro 2013-0 No Esteban G 12.5 mg, Memoria thiazide 25 4-19 Jessika 0.5 tab, l mg oral 14:00: Route: PO, Herm kathy tablet 00 Drug form: TAB, QAM, Start date: 03/04/13 9:00:00, Duration: 30 day, Stop date: 04/02/13 9:00:00 Prinivil 2012-0 No Esteban G 40 mg, 2 Me moria 4-19 Jess[place] tab, l 14:00: Route: PO, Drug form: TAB, QAM, Start date: 03/04/13 9:00:00, Duration: 30 day, Stop date: 04/02/13 9:00:00 Namenda 2012-0 No Esteban G 10 mg, 1 Mem [...] 30 day, Stop date: 04/02/13 13:00:00 Namenda 2012-0 No Esteban G 10 mg, 1 Mem [...] 4-18 Jessika tab, l 22:00: Route: PO, [place] 00 Drug form: TAB, BID, Start date: 03/03/13 17:00:00, Duration: 30 day, Stop date: 04/02/13 9:00:00 Robaxin 2012-0 No Esteban G 750 mg, 1 Me moria 4-18 Jessika tab, l 22:00: Route: PO, [place] 00 Drug form: TAB, TID, Start date: 03/03/13 17:00:00, Duration: 30 day, Stop date: 04/02/13 13:00:00 Dextrose 5% 2012-0 No Esteban G 1,000 mL, Memoria with 0.45% 4-18 Jessika Rate: 75 l NaCl IV 20:00: ml/hr, [place] 1,000 mL 00 Infuse over: 13.3 hr, Route: IV, kg, Total Volume: 1,000, Start date: 03/03/13 15:00:00, Stop date: 04/02/13 14:59:00 Dextrose 5% 2012-0 No Esteban G 1,000 mL, Memoria with 0.45% 4-18 [place] Rate: 75 l NaCl IV 20:00: ml/hr, [place] 1,000 mL 00 Infuse over: 13.3 hr, Route: IV, kg, Total Volume: 1,000, Start date: 03/03/13 15:00:00, Stop date: 04/02/13 14:59:00 glucagon 2012-0 No Esteban G 1 mg, Memor ia 4-18 [place] Route: IV, l 19:52: Drug form: [place] 00 PDR/INJ, PRN, PRN Blood Glucose Results, Start date: 03/03/13 14:52:00, Duration: 30 day, Stop date: 04/02/13 14:51:00 Dextrose 2012-0 No Esteban G 50 mL, Manjit greg 50% in 4-18 Jess[place] Route: l Water IV 19:52: IVP, Start Her ricci 00 date: 03/03/13 14:52:00, Duration: 30 day, Stop date: 04/02/13 14:51:00, PRN Blood Glucose Results NovoLog 2012-0 No Esteban G 5 unit, Manjit greg FlexPen 4-18 Jessika 0.05 mL, l 19:52: Route: [place] 00 SUB-Q, Drug form: SOLN, Sliding Scale, PRN Blood Glucose Results, Start date: 03/03/13 14:52:00, Duration: 30 day, Stop date: 04/02/13 14:51:00 glucagon 2012-0 No Esteban G 1 mg, Memor ia 4-18 [place] Route: IV, l 19:52: Drug form: [place] 00 PDR/INJ, PRN, PRN Blood Glucose Results, Start date: 03/03/13 14:52:00, Duration: 30 day, Stop date: 04/02/13 14:51:00 Dextrose 2012-0 No Esteban G 50 mL, Manjit greg 50% in 4-18 [place] Route: l Water IV 19:52: IVP, Start Her ricci date: 03/03/13 14:52:00, Duration: 30 day, Stop date: 04/02/13 14:51:00, PRN Blood Glucose Results NovoLog 2012-0 No Esteban G 5 unit, Manjit greg FlexPen 4-18 [place] 0.05 mL, l 19:52: Route: [place] 00 SUB-Q, Drug form: SOLN, Sliding Scale, [...] Jessika Route: l Flush 18:34: IVP, Drug [place] 00 Form: INJ, PRN, PRN Line Flush, [...] Jessika Route: l 0.9% IV 18:34: IVPB, [place] Start date: 03/03/13 13:34:00, Duration: 30 day, [...] 4-18 [place] Route: l 15:49: IVP, Drug [place] 00 form: INJ, ONCE, Dosing Weight 87.8, kg, Start date: 03/03/13 10:49:00, Stop date: 03/03/13 10:49:00 Zofran 2012-0 No Esteban G 4 mg, Memoria 4-18 [place] Route: l 15:49: IVP, Drug form: INJ, ONCE, Dosing Weight 87.8, kg, Start date: 03/03/13 10:49:00, Stop date: 03/03/13 10:49:00 fentanyl 2012-0 No Esteban G 25 Memori a 4-18 Jessika microgram, l 15:48: Route: [place] 00 IVP, ONCE, Dosing Weight 87.8, kg, Start date: 03/03/13 10:48:00, Stop date: 03/03/13 10:48:00 fentanyl 2012-0 No Esteban G 25 Memori a 4-18 [place] microgram, l 15:48: Route: [place] 00 IVP, ONCE, Dosing Weight 87.8, kg, Start date: 03/03/13 10:48:00, Stop date: 03/03/13 10:48:00 acetaminoph 0 No Esteban G 1,000 mg, Memoria en 10 mg/mL 4-18 [place] Route: IV, l intravenous 15:12: Drug form: [place] solution 00 INJ, ONCE, Dosing Weight 87.8, kg, For > or = 50 kg, Start date: 03/03/13 10:12:00, Stop date: 03/03/13 10:12:00 hydromorpho No Esteban G 0.5 mg, Memoria ne 4-18 [place] Route: IV, l 15:12: ONCE, Dosing Weight 87.8, kg, Start date: 03/03/13 10:12:00, Stop date: 03/03/13 10:12:00 acetaminoph 0 No Esteban G 1,000 mg, Memoria en 10 mg/mL 4-18 [place] Route: IV, l intravenous 15:12: Drug form: [place] solution 00 INJ, ONCE, Dosing Weight 87.8, kg, For > or = 50 kg, Start date: 03/03/13 10:12:00, Stop date: 03/03/13 10:12:00 hydromorpho 0 No Esteban G 0.5 mg, Memoria ne 4-18 [place] Route: IV, l 15:12: ONCE, Dosing Weight 87.8, kg, Start date: 03/03/13 10:12:00, Stop date: 03/03/13 10:12:00 Potassium Potassium Yes Anneliese 1 capsule Common Chloride Chloride Millender with food [facility] Tylenol # 3 Tylenol # 3 Yes Anneliese one tab Common [facility] Vitamin D-3 Vitamin D-3 Yes Anneliese 2 capsule Common [facility] - [facility] Humalog Humalog Yes Anneliese as Common Millender directed [facility] Aspir-Low Aspir-Low Yes Anneliese 1 tablet Common Millender [facility] Namzaric Namzaric Yes Anneliese 1 Common Millender [facility] Zyprexa Zyprexa Yes Anneliese 1 tablet Comm on Millender [facility] Vitamin B-1 Vitamin B-1 Yes Anneliese 1 tablet Common Millender [facility] Multivitami Multivitami Yes Anneliese as Common n n Millender directed [facility] Lantus Lantus Yes Anneliese as Common Millender directed [facility] Lasix Lasix Yes Anneliese 1 tablet Common [facility] Isosorbide Isosorbide Yes Anneliese 1 tablet Common Mononitrate Mononitrate Millender in the [facility] morning [facility] Lyrica Lyrica Yes Anneliese 1 capsule Commo n Millender [facility] Immunizations Ordered Filled Immunization Date Status Comments [facility] e Immunization Name Name SARS-COV-2 COVID-19 2021-09-16 Completed Unive rsity of MODERNA VACCINE 00:00:00 [facility] SARS-COV-2 COVID-19 2021-09-16 Completed Unive rsity of MODERNA VACCINE 00:00:00 [facility] SARS-COV-2 COVID-19 2021-09-16 Completed Unive rsity of MODERNA VACCINE 00:00:00 [facility] SARS-COV-2 COVID-19 2021-09-16 Completed Unive rsity of MODERNA VACCINE 00:00:00 [facility] SARS-COV-2 COVID-19 2021-09-16 Completed Unive rsity of MODERNA VACCINE 00:00:00 [facility] SARS-COV-2 COVID-19 2021-09-16 Completed Unive rsity of MODERNA VACCINE 00:00:00 [facility] SARS-COV-2 COVID-19 2021-09-16 Completed Unive rsity of MODERNA VACCINE 00:00:00 [place] [facility] SARS-COV-2 COVID-19 2021-09-16 Completed Unive rsity of MODERNA VACCINE 00:00:00 [facility] SARS-COV-2 COVID-19 2021-09-16 Completed Unive rsity of MODERNA VACCINE 00:00:00 [facility] SARS-COV-2 COVID-19 2021-09-16 Completed Unive rsity of MODERNA VACCINE 00:00:00 [facility] SARS-COV-2 COVID-19 2021-08-17 Completed Unive rsity of MODERNA VACCINE 00:00:00 [facility] Influenza High Dose 2021-08-17 Completed Unive rsity of 00:00:00 [facility] SARS-COV-2 COVID-19 2021-08-17 Completed Unive rsity of MODERNA VACCINE 00:00:00 [facility] Influenza High Dose 2021-08-17 Completed Unive rsity of 00:00:00 [facility] SARS-COV-2 COVID-19 2021-08-17 Completed Unive rsity of MODERNA VACCINE 00:00:00 [facility] Influenza High Dose 2021-08-17 Completed Unive rsity of 00:00:00 [facility] SARS-COV-2 COVID-19 2021-08-17 Completed Unive rsity of MODERNA VACCINE 00:00:00 [facility] Influenza High Dose 2021-08-17 Completed Unive rsity of 00:00:00 [facility] SARS-COV-2 COVID-19 2021-08-17 Completed Unive rsity of MODERNA VACCINE 00:00:00 [facility] Influenza High Dose 2021-08-17 Completed Unive rsity of 00:00:00 [facility] SARS-COV-2 COVID-19 2021-08-17 Completed Unive rsity of MODERNA VACCINE 00:00:00 [facility] Influenza High Dose 2021-08-17 Completed Unive rsity of 00:00:00 [facility] SARS-COV-2 COVID-19 2021-08-17 Completed Unive rsity of MODERNA VACCINE 00:00:00 [facility] Influenza High Dose 2021-08-17 Completed Unive rsity of 00:00:00 [place] [facility] SARS-COV-2 COVID-19 2021-08-17 Completed Unive rsity of MODERNA VACCINE 00:00:00 [facility] Influenza High Dose 2021-08-17 Completed Unive rsity of 00:00:00 [facility] SARS-COV-2 COVID-19 2021-08-17 Completed Unive rsity of MODERNA VACCINE 00:00:00 [facility] Influenza High Dose 2021-08-17 Completed Unive rsity of 00:00:00 [facility] SARS-COV-2 COVID-19 2021-08-17 Completed Unive rsity of MODERNA VACCINE 00:00:00 [facility] Influenza High Dose 2021-08-17 Completed Unive rsity of 00:00:00 [facility] Zoster(Zostavax)( 2020-09-14 Completed Unive rsity of ingles) 00:00:00 [facility] Zoster(Zostavax)( 2020-09-14 Completed Unive rsity of ingles) 00:00:00 [facility] Zoster(Zostavax)( 2020-09-14 Completed Unive rsity of ingles) 00:00:00 [facility] Zoster(Zostavax)( 2020-09-14 Completed Unive rsity of ingles) 00:00:00 [facility] Zoster(Zostavax)( 2020-09-14 Completed Unive rsity of ingles) 00:00:00 [facility] Zoster(Zostavax)( 2020-09-14 Completed Unive rsity of ingles) 00:00:00 [facility] Zoster(Zostavax)( 2020-09-14 Completed Unive rsity of ingles) 00:00:00 [facility] Zoster(Zostavax)( 2020-09-14 Completed Unive rsity of ingles) 00:00:00 [facility] Zoster(Zostavax)( 2020-09-14 Completed Unive rsity of ingles) 00:00:00 [facility] Zoster(Zostavax)( 2020-09-14 Completed Unive rsity of ingles) 00:00:00 [facility] Influenza High Dose 2020-07-13 Completed Unive rsity of 00:00:00 [facility] Influenza High Dose 2020-07-13 Completed Unive rsity of 00:00:00 [facility] Influenza High Dose 2020-07-13 Completed Unive rsity of 00:00:00 [facility] Influenza High Dose 2020-07-13 Completed Unive rsity of 00:00:00 [facility] Influenza High Dose 2020-07-13 Completed Unive rsity of 00:00:00 [facility] Influenza High Dose 2020-07-13 Completed Unive rsity of 00:00:00 [facility] Influenza High Dose 2020-07-13 Completed Unive rsity of 00:00:00 [facility] Influenza High Dose 2020-07-13 Completed Unive rsity of 00:00:00 [facility] Influenza High Dose 2020-07-13 Completed Unive rsity of 00:00:00 [facility] Influenza High Dose 2020-07-13 Completed Unive rsity of 00:00:00 [facility] Influenza High Dose 2019-09-15 Completed Unive rsity of 00:00:00 [facility] Influenza High Dose 2019-09-15 Completed Unive rsity of 00:00:00 [facility] Influenza High Dose 2019-09-15 Completed Unive rsity of 00:00:00 [facility] Influenza High Dose 2019-09-15 Completed Unive rsity of 00:00:00 [facility] Influenza High Dose 2019-09-15 Completed Unive rsity of 00:00:00 [facility] Influenza High Dose 2019-09-15 Completed Unive rsity of 00:00:00 [facility] Influenza High Dose 2019-09-15 Completed Unive rsity of 00:00:00 [facility] Influenza High Dose 2019-09-15 Completed Unive rsity of 00:00:00 [facility] Influenza High Dose 2019-09-15 Completed Unive rsity of 00:00:00 [facility] Influenza High Dose 2019-09-15 Completed Unive rsity of 00:00:00 [facility] Influenza Virus 2018-09-09 Completed Universit y of Vaccine 00:00:00 [facility] Influenza Virus 2018-09-09 Completed Universit y of Vaccine 00:00:00 [facility] Influenza Virus 2018-09-09 Completed Universit y of Vaccine 00:00:00 [facility] Influenza Virus 2018-09-09 Completed Universit y of Vaccine 00:00:00 [facility] Influenza Virus 2018-09-09 Completed Universit y of Vaccine 00:00:00 [facility] Influenza Virus 2018-09-09 Completed Universit y of Vaccine 00:00:00 [facility] Influenza Virus 2018-09-09 Completed Universit y of Vaccine 00:00:00 [facility] Influenza Virus 2018-09-09 Completed Universit y of Vaccine 00:00:00 [facility] Influenza Virus 2018-09-09 Completed Universit y of Vaccine 00:00:00 [facility] Influenza Virus 2018-09-09 Completed Universit y of Vaccine 00:00:00 [facility] Influenza Virus 2018-09-09 Completed Universit y of Vaccine 00:00:00 [facility] Influenza Virus 2018-09-09 Completed Universit y of Vaccine 00:00:00 [facility] Influenza Virus 2018-09-09 Completed Universit y of Vaccine 00:00:00 [facility] Influenza Virus 2018-09-09 Completed Universit y of Vaccine 00:00:00 [facility] Influenza Virus 2018-09-09 Completed Universit y of Vaccine 00:00:00 [facility] Influenza Virus 2018-09-09 Completed Universit y of Vaccine 00:00:00 [facility] Influenza Virus 2018-09-09 Completed Universit y of Vaccine 00:00:00 [facility] Influenza Virus 2018-09-09 Completed Universit y of Vaccine 00:00:00 [facility] Influenza Virus 2018-09-09 Completed Universit y of Vaccine 00:00:00 [facility] Influenza Virus 2018-09-09 Completed Universit y of Vaccine 00:00:00 [facility] Influenza Virus 2018-09-09 Completed Universit y of Vaccine 00:00:00 [facility] Influenza Virus 2018-09-09 Completed Universit y of Vaccine 00:00:00 [facility] Influenza Virus 2018-09-09 Completed Universit y of Vaccine 00:00:00 [facility] Influenza Virus 2018-09-09 Completed Universit y of Vaccine 00:00:00 [facility] Influenza Virus 2018-09-09 Completed Universit y of Vaccine 00:00:00 [facility] Influenza Virus 2018-09-09 Completed Universit y of Vaccine 00:00:00 [facility] Influenza Virus 2018-09-09 Completed Universit y of Vaccine 00:00:00 [facility] Influenza Virus 2018-09-09 Completed Universit y of Vaccine 00:00:00 [facility] Pneumococcal 2016-11-02 Completed University o [...] 06:06:00 107 mm[Hg] Univer sity of pressure [facility] Diastolic blood 2022-07-12 06:06:00 64 mm[Hg] Unive rsity of pressure [facility] Heart rate 2022-07-12 06:06:00 82 /min [facility] Respiratory rate 2022-07-12 06:06:00 24 /min [facility] in 2022-07-12 06:06:00 100 /min [facility] Arterial blood by [facility] Pulse oximetry Branch Body temperature 2022-07-12 05:34:00 36.22 Priyanka Univ [facility] [place] [facility] Body height 2022-07-12 05:34:00 170.2 cm [facility] [place] [facility] Body weight 2022-07-12 05:34:00 63.504 kg [facility] [place] [facility] BMI 2022-07-12 05:34:00 21.93 kg/m2 [facility] [place] [facility] Systolic blood 2022-06-10 16:54:00 125 mm[Hg] Univer sity of pressure [place] [facility] Diastolic blood 2022-06-10 16:54:00 74 mm[Hg] Unive rsity of pressure [place] [facility] Heart rate 2022-06-10 16:54:00 81 /min [facility] [place] [facility] Body temperature 2022-06-10 16:54:00 36.67 Priyanka [facility] [place] [facility] Respiratory rate 2022-06-10 16:54:00 18 /min [facility] [place] [facility] Oxygen saturation in 2022-06-10 16:54:00 98 /min University of Arterial blood by [employer] Pulse oximetry Branch Body weight 2022-06-10 09:07:00 61.462 kg [facility] [place] [facility] BMI 2022-06-10 09:07:00 21.22 kg/m2 [facility] [place] [facility] Body height 2022-06-03 14:44:00 170.2 cm [facility] [place] [facility] Systolic blood 2022-05-31 16:18:00 123 mm[Hg] Univer sity of pressure [place] [facility] Diastolic blood 2022-05-31 16:18:00 74 mm[Hg] Unive rsity of pressure [place] [facility] Heart rate 2022-05-31 16:18:00 92 /min [facility] [place] [facility] Body temperature 2022-05-31 16:18:00 36.78 Priyanka [facility] [place] [facility] Respiratory rate 2022-05-31 16:18:00 18 /min [facility] [place] [facility] Oxygen saturation in 2022-05-31 16:18:00 93 /min University of Arterial blood by [employer] Pulse oximetry Branch Body weight 2022-05-30 08:33:00 53.978 kg [facility] [place] [facility] BMI 2022-05-30 08:33:00 18.63 kg/m2 [facility] [place] [facility] Body height 2022-05-24 20:10:00 170.2 cm [facility] [place] [facility] Systolic blood 2022-04-17 03:35:00 110 mm[Hg] Univer sity of pressure [place] [facility] Diastolic blood 2022-04-17 03:35:00 77 mm[Hg] Unive rsity of pressure [place] [facility] Heart rate 2022-04-17 03:35:00 98 /min [facility] [place] [facility] Oxygen saturation in 2022-04-17 03:35:00 99 /min University of Arterial blood by [employer] Pulse oximetry Branch Body temperature 2022-04-17 03:25:00 37.33 Priyanka [facility] [place] [facility] Respiratory rate 2022-04-17 03:25:00 18 /min [facility] [place] [facility] Body height 2022-04-17 03:25:00 170.2 cm [facility] [place] [facility] Body weight 2022-04-17 03:25:00 77.111 kg [facility] [place] [facility] BMI 2022-04-17 03:25:00 26.63 kg/m2 [facility] [place] [facility] Systolic blood 2022-03-01 16:36:00 143 mm[Hg] Univer sity of pressure [place] [facility] Diastolic blood 2022-03-01 16:36:00 80 mm[Hg] Unive rsity of pressure [place] [facility] Heart rate 2022-03-01 16:36:00 98 /min Universi ty of [facility] Respiratory rate 2022-03-01 16:36:00 16 /min [facility] Oxygen saturation in 2022-03-01 16:36:00 97 /min [facility] Arterial blood by [employer] bird[employer] Pulse oximetry Branch Body temperature 2022-03-01 11:42:00 36.94 Priyanka [facility] Body height 2022-03-01 11:42:00 170.2 cm [facility] Body weight 2022-03-01 11:42:00 77.111 kg [facility] BMI 2022-03-01 11:42:00 26.63 kg/m2 [facility] Systolic blood 2021-11-02 17:17:00 109 mm[Hg] Univer sity of pressure [facility] Diastolic blood 2021-11-02 17:17:00 67 mm[Hg] Unive rsity of pressure [facility] Heart rate 2021-11-02 17:17:00 84 /min [facility] Body temperature 2021-11-02 17:17:00 36.44 Priyanka [facility] Respiratory rate 2021-11-02 17:17:00 18 /min [facility] Oxygen saturation in 2021-11-02 17:17:00 95 /min [facility]terial blood by [facility] birdie Pulse oximetry Branch Body weight 2021-11-02 09:17:00 79.969 kg [facility] BMI 2021-11-02 09:17:00 27.61 kg/m2 [facility] Body height 2021-10-31 05:46:00 170.2 cm [facility] Systolic blood 2021-04-25 22:36:00 118 mm[Hg] Univer [facility]ity of pressure [facility] Diastolic blood 2021-04-25 22:36:00 70 mm[Hg] Unive rsity of pressure [facility] Heart rate 2021-04-25 22:36:00 68 /min [facility] Respiratory rate 2021-04-25 22:36:00 18 /min [facility] Oxygen saturation in 2021-04-25 22:36:00 99 /min [facility]ial blood by [facility] birdie Pulse oximetry Branch Body temperature 2021-04-25 15:42:00 36.44 Priyanka [facility] Body weight 2021-04-25 15:42:00 81.647 kg [facility] BMI 2021-04-25 15:42:00 27.37 kg/m2 [facility] Systolic blood 2020-06-26 10:00:00 124 mm[Hg] [facility] Diastolic blood 2020-06-26 10:00:00 78 mm[Hg] Unive rsity of pressure [facility] Respiratory rate 2020-06-26 10:00:00 18 /min [facility] Oxygen saturation in 2020-06-26 10:00:00 98 /min [facility] by [place] [facility] Heart rate 2020-06-26 08:56:00 98 /min [facility] Body temperature 2020-06-26 08:56:00 37.17 Priyanka [facility] Body weight 2020-06-26 08:56:00 74.844 kg [facility] BMI 2020-06-26 08:56:00 25.09 kg/m2 [facility] Systolic blood 2020-06-26 10:00:00 124 mm[Hg] [facility] pressure [facility] Diastolic blood 2020-06-26 10:00:00 78 mm[Hg] Unive rsity of pressure [facility] Respiratory rate 2020-06-26 10:00:00 18 /min [facility] Oxygen saturation in 2020-06-26 10:00:00 98 /min [facility]ial blood by [facility] birdie Pulse oximetry Branch Heart rate 2020-06-26 08:56:00 98 /min [facility] Body temperature 2020-06-26 08:56:00 37.17 Priyanka [facility] Body weight 2020-06-26 08:56:00 74.844 kg [facility] BMI 2020-06-26 08:56:00 25.09 kg/m2 [facility] Systolic blood 2020-05-24 15:47:29 166 mm[Hg] [facility] pressure [facility] Diastolic blood 2020-05-24 15:47:29 89 mm[Hg] Unive rsity of pressure [facility] Heart rate 2020-05-24 15:47:29 86 /min [facility] Respiratory rate 2020-05-24 15:47:29 16 /min [facility] Oxygen saturation in 2020-05-24 15:47:29 97 /min [facility] Arterial blood by [facility] birdie Pulse oximetry Branch Body temperature 2020-05-24 11:44:00 36.94 Priyanka [facility] Body height 2020-05-24 11:44:00 172.7 cm [facility] Body weight 2020-05-24 11:44:00 74.844 kg [facility] BMI 2020-05-24 11:44:00 25.09 kg/m2 [facility] Systolic blood 2020-05-24 15:47:29 166 mm[Hg] [facility]ity of pressure [facility] Diastolic blood 2020-05-24 15:47:29 89 mm[Hg] Unive rsity of pressure [facility] Heart rate 2020-05-24 15:47:29 86 /min [facility] Respiratory rate 2020-05-24 15:47:29 16 /min [facility] Oxygen saturation in 2020-05-24 15:47:29 97 /min [facility] blood by [place] [employer] bird[facility] Pulse oximetry Branch Body temperature 2020-05-24 11:44:00 36.94 Priyanka [facility] Body height 2020-05-24 11:44:00 172.7 cm [facility] [place] [facility] [place] Body weight 2020-05-24 11:44:00 74.844 kg [facility] Branch BMI 2020-05-24 11:44:00 25.09 kg/m2 [facility] Systolic blood 2020-03-24 02:31:00 127 mm[Hg] [facility] of pressure [facility] Diastolic blood 2020-03-24 02:31:00 72 mm[Hg] Unive [facility]ity of pressure [facility] Heart rate 2020-03-24 02:31:00 69 /min [facility] [place] Body temperature 2020-03-24 02:31:00 36.39 Priyanka [facility] Respiratory rate 2020-03-24 02:31:00 18 /min [facility] Oxygen saturation in 2020-03-24 02:31:00 97 /min [facility] Arterial blood by [facility] birdie Pulse oximetry Branch Systolic blood 2020-03-23 21:35:00 100 mm[Hg] [facility] of pressure [facility] Diastolic blood 2020-03-23 21:35:00 59 mm[Hg] Unive rsity of pressure [facility] Heart rate 2020-03-23 21:35:00 79 /min [facility] Body temperature 2020-03-23 21:35:00 36.78 Priyanka [facility] Respiratory rate 2020-03-23 21:35:00 18 /min [facility] Oxygen saturation in 2020-03-23 21:35:00 99 /min [facility] blood by [place] [employer] [facility] Pulse oxim[facility] Branch Body weight 2020-03-23 09:41:00 76.613 kg [facility] BMI 2020-03-23 09:41:00 26.45 kg/m2 [facility] Body height 2020-03-23 03:43:00 170.2 cm [facility] Systolic blood 2020-03-21 20:55:00 128 mm[Hg] [facility] of pressure [facility] Diastolic blood 2020-03-21 20:55:00 61 mm[Hg] [facility]ive rsity of pressure [facility] Heart rate 2020-03-21 20:55:00 75 /min [facility] Respiratory rate 2020-03-21 20:55:00 10 /min [facility] Oxygen saturation in 2020-03-21 20:55:00 98 /min [facility]terial blood by [facility] Pulse oximetry Branch Body temperature 2020-03-21 20:03:00 37.83 Priyanka [facility] Body height 2020-03-21 20:03:00 170.2 cm [facility] Body weight 2020-03-21 20:03:00 76.204 kg [facility] BMI 2020-03-21 20:03:00 26.31 kg/m2 [facility] Systolic blood 2020-03-07 20:50:00 118 mm[Hg] [facility] pressure [facility] Diastolic blood 2020-03-07 20:50:00 65 mm[Hg] Unive rsity of pressure [facility] Heart rate 2020-03-07 20:50:00 85 /min [facility] Body temperature 2020-03-07 20:50:00 36.39 Priyanka [facility] Respiratory rate 2020-03-07 20:50:00 18 /min [facility] Oxygen saturation in 2020-03-07 20:50:00 95 /min [facility] blood by [facility] birdie Pulse oximetry Branch Body height 2020-03-05 02:35:00 172.7 cm [facility] Body weight 2020-03-05 02:35:00 73.483 kg [facility] BMI 2020-03-05 02:35:00 24.63 kg/m2 [facility] Systolic blood 2020-03-02 15:49:00 122 mm[Hg] [facility] pressure [facility] Diastolic blood 2020-03-02 15:49:00 81 mm[Hg] Unive rsity of pressure [facility] Heart rate 2020-03-02 15:49:00 89 /min [facility] Body temperature 2020-03-02 15:49:00 37.06 Priyanka [facility] Respiratory rate 2020-03-02 15:49:00 19 /min [facility] Oxygen saturation in 2020-03-02 15:49:00 96 /min [facility] Ar[facility]ial blood by [place] [employer] Pulse oximetry Branch Body height 2020-03-01 00:54:00 170.2 cm [facility] Body weight 2020-03-01 00:54:00 76.975 kg [facility] BMI 2020-03-01 00:54:00 26.58 kg/m2 [facility] Systolic blood 2020-01-17 21:08:00 116 mm[Hg] [facility] of pressure [facility] Diastolic blood 2020-01-17 21:08:00 78 mm[Hg] [facility]ive rsity of pressure [facility] Heart rate 2020-01-17 21:08:00 88 /min [facility] Body temperature 2020-01-17 21:08:00 36.72 Priyanka [facility] Respiratory rate 2020-01-17 21:08:00 18 /min [facility] Oxygen saturation in 2020-01-17 21:08:00 98 /min [facility] blood by [place] [employer] [facility] Pulse oximetry Branch Body height 2020-01-16 06:21:00 172.7 cm [facility] Body weight 2020-01-16 04:35:00 83.462 kg [facility] BMI 2020-01-16 04:35:00 27.98 kg/m2 [facility] Heart Rate 2022-03-10 21:29:[facility]10 21:29:55 [facility] Systolic (mm Hg) 2022-03-10 21:29:46 Manjit rial [place] Diastolic (mm Hg) 2022-03-10 21:29:46 Mem o[facility] [place] Heart Rate 2022-03-10 21:29:46 [facility] [place] Temperature Oral (F) 2022-03-10 21:29:23 98.4 F [facility] Heart Rate 2022-03-10 17:19:36 [facility] Respitory Rate 2022-03-10 17:19:36 [facility] [place] Systolic (mm Hg) 2022-03-10 17:19:27 Manjit rial [place] Diastolic (mm Hg) 2022-03-10 17:19:27 [facility] Temperature Oral (F) 2022-03-10 17:19:27 98.4 F [facility] [place] Systolic (mm Hg) 2022-03-10 13:15:26 Manjit rial [place] Diastolic (mm Hg) 2022-03-10 13:15:26 Mem orial [place] Temperature Oral (F) 2022-03-10 13:14:53 98.3 F [facility] Respitory Rate 2022-03-10 10:10:43 [facility] [place] Heart Rate 2022-03-10 03:45:00 [facility] [place] Respitory Rate 2022-03-10 03:45:00 [facility] [place] Temperature Oral (F) 2022-03-10 03:44:50 97.9 F [facility] [place] Systolic (mm Hg) 2022-03-10 03:44:47 Manjit rial [place] Diastolic (mm Hg) 2022-03-10 03:44:47 Mem orial [place] Heart Rate 2022-03-10 03:44:47 [facility] Heart Rate 2022-03-10 00:45:38 [facility] Respitory Rate 2022-03-10 00:45:38 [facility] [place] Systolic (mm Hg) 2022-03-10 00:45:34 Manjit rial [place] Diastolic (mm Hg) 2022-03-10 00:45:34 Mem [facility] [place] Temperature Oral (F) 2022-03-10 00:45:01 98.2 F [facility] Temperature Oral (F) 2022-03-09 21:31:00 98.6 F [facility] Systolic (mm Hg) 2022-03-09 21:30:45 Manjit rial [place] Diastolic (mm Hg) 2022-03-09 21:30:45 Mem [facility] Respitory Rate 2022-03-09 09:27:14 [facility] [place] Height 2022-03-05 11:53:00 170.18 cm [facility] Weight 2022-03-05 11:53:00 [facility] [place] BMI Calculated 2022-03-05 11:53:00 [facility] Systolic blood 2021-12-25 17:15:32 115 mm[Hg] [facility] pressure Diastolic blood 2021-12-25 17:15:32 89 mm[Hg] [facility] pressure Heart rate 2021-12-25 17:15:32 89 /min [facility] Body temperature 2021-12-25 17:15:32 36.33 Priyanka [facility] Respiratory rate 2021-12-25 17:15:32 18 /min [facility] Oxygen saturation in 2021-12-25 17:15:32 96 /min [facility] Arterial blood by Pulse oximetry Body weight 2021-12-25 10:05:43 73.347 kg [facility] BMI 2021-12-25 10:05:43 25.33 kg/m2 [facility] Body height 2021-12-20 12:37:00 170.2 cm [facility] Temperature Oral (F) 2013-03-07 13:44:00 98.7 F [facility] [place] Heart Rate 2013-03-07 13:44:00 [facility] [place] Respitory Rate 2013-03-07 13:44:00 [facility] Systolic (mm Hg) 2013-03-07 13:44:00 Manjit rial [place] Diastolic (mm Hg) 2013-03-07 13:44:00 [facility] Heart Rate 2013-03-07 09:00:00 [facility] [place] Temperature Oral (F) 2013-03-07 09:00:00 98.1 F [facility] [place] Diastolic (mm Hg) 2013-03-07 09:00:00 Mem [facility] Systolic (mm Hg) 2013-03-07 09:00:00 Manjit rial [place] Respitory Rate 2013-03-07 09:00:00 Camilo willams [place] Diastolic (mm Hg) 2013-03-07 05:00:00 Kristine lau [place] Systolic (mm Hg) 2013-03-07 05:00:00 Manjit [facility] Heart Rate 2013-03-07 05:00:00 [facility] Temperature Oral (F) 2013-03-07 05:00:00 98.1 F [facility] Respitory Rate 2013-03-07 05:00:00 Camilo willams [facility] Weight 2013-03-03 18:18:00 [facility] Height 2013-03-03 18:18:00 172.72 cm [facility] [place] Height 2013-03-03 18:13:00 172.72 cm [facility] [place] Weight 2013-03-03 18:13:00 [facility] [place] Weight 2013-03-03 11:00:00 [facility] Height 2013-03-03 11:00:00 173 cm [facility] Height 2013-02-03 14:49:00 172.72 cm [facility] [place] Weight 2013-02-03 14:49:00 [facility] [place] Procedures Procedure Date / Time Performing Clinician Source Performed CBC WITH DIFF 2022-07-12 06:31:00 Suraj Guerrero [facility] COVID-19 (ID NOW RAPID 2022-06-10 17:55:00 Sridhar Gordon [facility] POCT GLUCOSE (AUTOMATED) 2022-06-10 16:45:[address] [facility] POCT GLUCOSE (AUTOMATED) 2022-06-10 16:43:[address] [facility] POCT GLUCOSE (AUTOMATED) 2022-06-10 12:55:[address] [facility] POCT GLUCOSE (AUTOMATED) 2022-06-10 09:07:[address] [facility] BASIC METABOLIC PANEL 2022-06-10 08:53:00 Lulu Harris [facility] (NA, K, CL, CO2, GLUCOSE, Medica l Branch BUN, CREATININE, CA) CBC WITH DIFF 2022-06-10 08:53:00 Abdullah, [facility] N-TERMINAL PRO-BNP 2022-06-10 08:53:00 Lulu Harris [facility] POCT GLUCOSE (AUTOMATED) 2022-06-10 05:08:00 [facility]ae [facility] ([facility]) 2022-06-10 01:37:00 Eve Rae [facility] POCT GLUCOSE (AUTOMATED) 2022-06-09 21:52:00 Eve Rae [facility]UCOSE (AUTOMATED) 2022-06-09 20:11:00 Eve Rae [facility] GLUCOSE (AUTOMATED) 2022-06-09 16:51:00 Eve Rae [facility] POCT GLUCOSE (AUTOMATED) 2022-06-09 12:47:[address] [facility] PHOSPHORUS 2022-06-09 09:39:00 Steven [facility] MAGNESIUM 2022-06-09 09:39:00 Steven [facility] BASIC METABOLIC PANEL 2022-06-09 09:39:00 Lulu Harris [facility] (NA, K, CL, CO2, GLUCOSE, Medica l Branch BUN, CREATININE, CA) N-TERMINAL PRO-BNP 2022-06-09 09:39:00 Jenise Tang [facility] POCT GLUCOSE (AUTOMATED) 2022-06-09 09:37:00 Eve Rae [facility] POCT GLUCOSE (AUTOMATED) 2022-06-09 05:09:00 Eve Rae [facility] POCT GLUCOSE (AUTOMATED) 2022-06-09 01:04:00 Eve Rae [facility] POCT GLUCOSE (AUTOMATED) 2022-06-08 21:43:00 Eve Rae [facility] POCT GLUCOSE (AUTOMATED) 2022-06-08 16:58:[address] [facility] PHOSPHORUS 2022-06-08 16:37:00 [facility] 2022-06-08 16:37:00 Steven [facility] BASIC METABOLIC PANEL 2022-06-08 16:37:00 Steven [facility] (NA, K, CL, CO2, GLUCOSE, Medica l Branch BUN, CREATININE, CA) CBC WITH DIFF 2022-06-08 16:37[facility]00 [facility] 2022-06-08 16:37:00 [facility] (A1C) [facility] N-TERMINAL PRO-BNP 2022-06-08 16:37:00 Alexandra Stephenson [facility] POCT GLUCOSE (AUTOMATED) 2022-06-08 12:44:00 Eve Rae [facility] POCT GLUCOSE (AUTOMATED) 2022-06-08 01:55:00 Eve Rae [facility] POCT GLUCOSE (AUTOMATED) 2022-06-07 21:47:00 Eve Rae [facility] POCT GLUCOSE (AUTOMATED) 2022-06-07 16:49:00 Eve Rae [facility] POCT GLUCOSE (AUTOMATED) 2022-06-07 12:57:00 Eve Rae [facility] POCT GLUCOSE (AUTOMATED) 2022-06-07 02:37:00 Eve Rae [facility] POCT GLUCOSE (AUTOMATED) 2022-06-06 15:37:00 Eve Rae [facility] POCT GLUCOSE (AUTOMATED) 2022-06-06 13:02:00 Eve Rae [facility] MAGNESIUM 2022-06-06 09:19:00 [facility]OL[facility] 2022-06-06 09:19:00 Sridhar Gordon [facility] (NA, K, CL, CO2, GLUCOSE, Medica l Branch BUN, CREATININE, CA) CBC WITH DIFF 2022-06-06 09:19:00 [facility] PO[facility]UCOSE (AUTOMATED) 2022-06-06 01:53:00 Eve Rae [facility] POCT GLUCOSE (AUTOMATED) 2022-06-05 21:34:00 Kyra, Eve [facility] POCT GLUCOSE (AUTOMATED) 2022-06-05 17:17:00 Eve Rae [facility] N-TERMINAL PRO-BNP 2022-06-05 13:47:00 Alexandra Stephenson [facility] POCT GLUCOSE (AUTOMATED) 2022-06-05 13:01:00 Eve Rae [facility] POCT GLUCOSE (AUTOMATED) 2022-06-05 01:17:00 Eve Rae [facility] POCT GLUCOSE (AUTOMATED) 2022-06-04 21:49:00 Eve Rae [facility] TRANSTHORACIC ECHO (TTE) 2022-06-04 18:56:27 Eve Rae [facility] W/ DOPPLER, COLOR Medica l Branch AND CONTRAST POCT GLUCOSE (AUTOMATED) 2022-06-04 17:15:00 Eve Rae [facility] TROPONIN I 2022-06-04 15:11[facility] 2022-06-04 15:11:00 [facility] ([facility], K, CL, CO2, GLUCOSE, Medica l Branch BUN, CREATININE, CA) CT HEAD WO CONTRAST 2022-06-04 13:40:00 [facility] ([facility]OMATED) 2022-06-04 13:10:00 Eve Rae [facility] TROPONIN I 2022-06-04 01:57:00 Eve Rae [facility] POCT GLUCOSE (AUTOMATED) 2022-06-03 23:23:00 Eve Rae [facility] CT HIP LEFT WO CONTRAST 2022-06-03 19:07:02 Singer [facility] URINALYSIS 2022-06-03 15:50:00 Singer [facility] HB ABO GROUPING 2022-06-03 15:42:00 Singer [facility] LACTIC ACID WHOLE BLOOD 2022-06-03 15:41:00 Singer [facility] PROTHROMBIN TIME / INR 2022-06-03 15:38:00 Ric Childesr [facility] COVID-19 (ID NOW RAPID 2022-06-03 15:38:00 Singer [facility] TESTING) Medical Branch LAB ONLY COVID 2022-06-03 15:38:00 Singer [facility] INTERPRETATION [facility] XR CHEST 1 VW 2022-06-03 15:10:00 Singer [facility] XR HIPS 3 VW LEFT 2022-06-03 15:10:00 Singer [facility] HB ECG ROUTINE & RHYTHM 2022-06-03 14:51:40 Singer [facility] STRIP [facility] Branch LIPASE 2022-06-03 14:47:00 Singer [facility] MAGNESIUM 2022-06-03 14:47:00 Singer [facility] TROPONIN I 2022-06-03 14:47:00 Singer [facility] COMP. METABOLIC PANEL 2022-06-03 14:47:00 Singer [facility] ([id number]) Medical Branch CBC WITH DIFF 2022-06-03 14:47:00 Singer [facility] N-TERMINAL PRO-BNP 2022-06-03 14:47:00 Singer Ric [facility] BASIC METABOLIC PANEL 2022-05-31 10:30:00 Yamel Garnicashua [facility] (NA, K, CL, CO2, GLUCOSE, Medica l Branch BUN, CREATININE, CA) TROPONIN I 2022-05-31 10:30:00 Sarah Harrell [facility] COVID-19 (ID NOW RAPID 2022-05-30 21:43:00 Yamel Garnicashua [facility] TESTING) Medical Branch BASIC METABOLIC PANEL 2022-05-30 08:35:[address] [facility] (NA, K, CL, CO2, GLUCOSE, Medica l Branch BUN, CREATININE, CA) BASIC METABOLIC PANEL 2022-05-29 09:12:00 [facility] (NA, K, CL, CO2, GLUCOSE, Medica l Branch BUN, CREATININE, CA) N-TERMINAL PRO-BNP 2022-05-29 09:12:00 [facility] CBC WITH DIFF 2022-05-28 07:54:00 Rainerwvjohnny [facility] BASIC METABOLIC PANEL 2022-05-27 10:11:[address] [facility] (NA, K, CL, CO2, GLUCOSE, Medica l Branch BUN, CREATININE, CA) N-TERMINAL PRO-BNP 2022-05-27 10:11:00 Winston Ace [facility] MAGNESIUM 2022-05-26 16:16:00 [facility] BASIC METABOLIC PANEL 2022-05-26 16:16:[address] [facility] (NA, K, CL, CO2, GLUCOSE, Medica l Branch BUN, CREATININE, CA) TRANSTHORACIC ECHO (TTE) 2022-05-26 14:47:08 Sonny Garcia [facility] COMPLETE W/ CONTRAST [facility] D-DIMER 2022-05-25 19:54:00 Christa [facility] TROPONIN I 2022-05-25 13:57:00 Jose [facility] BASIC METABOLIC PANEL 2022-05-25 13:57:00 Sonny Garcia [facility] (NA, K, CL, CO2, GLUCOSE, Medica l Branch BUN, CREATININE, CA) POCT GLUCOSE (AUTOMATED) 2022-05-24 16:03:00 Nilda Wayne [facility] CT ANGIOGRAM CHEST 2022-05-24 06:48:00 Davis Fam [facility] CT ANGIOGRAM 2022-05-24 06:48:[address] [facility] ABDOMEN/PELVIS Medical Branch URINALYSIS 2022-05-24 06:13:00 Davis Fam [facility] XR HIPS 2 VW LEFT 2022-05-24 04:45:00 Davis Fam [facility] XR CHEST 1 VW 2022-05-24 04:44:00 Davis Fam [facility] COVID-19 (ID NOW RAPID 2022-05-24 04:28:00 Davis Fam [facility] TESTING) Medical Branch LAB ONLY COVID 2022-05-24 04:28:[address] [facility] INTERPRETATION [facility] TROPONIN I 2022-05-24 04:22:00 Davis Fam [facility] COMP. METABOLIC PANEL 2022-05-24 04:22:00 Davis Fam [facility] ([id number]) Medical Branch CBC WITH DIFF 2022-05-24 04:22:00 Davis Fam [facility] N-TERMINAL PRO-BNP 2022-05-24 04:22:00 [facility] 2022-05-24 04:02:12 Davis Fam [facility] CONSENT/REFUSAL FOR 2022-04-17 03:07:20 Doctor Unassigned, [facility] DIAGNOSIS AND TREATMENT [place] [facility] XR LUMBAR SPINE 2 VW 2022-03-01 14:18:00 Angelika Aguilar [facility] POC GLUCOSE 2021-12-25 17:17:00 [facility] [place] CV CARDIAC PET VIABILITY 2021-12-25 16:48:27 Jono Costello [facility] ASSESSMENT ONLY POC GLUCOSE 2021-12-25 16:13:00 [facility] [place] POC GLUCOSE 2021-12-25 15:17:00 [facility] [place] POC GLUCOSE 2021-12-25 14:36:00 [facility] POC GLUCOSE 2021-12-25 14:01:00 [facility] [place] POC GLUCOSE 2021-12-25 13:17:00 [facility] [place] HC COMPLETE BLD COUNT 2021-12-25 10:11:00 Cortez Robles [facility] W/AUTO DIFF Balaji BASIC METABOLIC PANEL 2021-12-25 10:11:00 Cortez Robles [facility] MAGNESIUM LEVEL 2021-12-25 10:11:00 [facility] L[facility] 2021-12-25 10:11:00 [facility] ESTIMATED GFR 2021-12-25 10:11:00 Jayson Aguilar [facility] POC GLUCOSE 2021-12-25 10:08:00 Jayson Aguilar [facility] POC GLUCOSE 2021-12-25 05:58:00 Jayson Aguilar [facility] POC GLUCOSE 2021-12-25 04:37:00 Jayson Aguilar [facility] POC GLUCOSE 2021-12-25 00:59:00 [facility] 2021-12-24 19:03:00 Lauren [facility] 2021-12-24 14:07:00 [place] [facility] BASIC METABOLIC PANEL 2021-12-24 10:06:00 James Acosta [facility] MAGNESIUM LEVEL 2021-12-24 10:06:00 James Acosta spital ESTIMATED GFR 2021-12-24 10:06:00 James Acosta spital CBC HEMOGRAM 2021-12-24 10:00:00 James Acosta spital POC GLUCOSE 2021-12-24 03:17:00 Jayson Aguilar [facility] POC GLUCOSE 2021-12-24 00:27:00 [facility]SE 2021-12-23 21:03:00 Jayson Aguilar [facility] ECG 12-LEAD 2021-12-23 20:14:21 James Acosta spital TROPONIN T 2021-12-23 17:08:00 James Acosta spital POC GLUCOSE 2021-12-23 14:06:00 Lauren [facility] CBC HEMOGRAM 2021-12-23 09:53:00 Jayson Aguilar [facility] BASIC METABOLIC PANEL 2021-12-23 09:53:00 James Acosta [facility] MAGNESIUM LEVEL 2021-12-23 09:53:00 James Acosta Ho spital ESTIMATED GFR 2021-12-23 09:53:00 James Acosta Ho spital POC GLUCOSE 2021-12-23 03:23:00 [facility] POC GLUCOSE 2021-12-22 23:44:00 [facility] POC GLUCOSE 2021-12-22 17:52:00 [facility] POC GLUCOSE 2021-12-22 13:58:00 [facility] HC COMPLETE BLD COUNT 2021-12-22 11:03:00 [facility] W/AUTO DIFF BASIC METABOLIC PANEL 2021-12-22 11:03:00 [facility] ESTIMATED GFR 2021-12-22 11:03:00 [facility] POC GLUCOSE 2021-12-22 05:06:00 [facility] POC GLUCOSE 2021-12-22 00:05:00 [facility] POC GLUCOSE 2021-12-21 18:26:00 [facility] POC GLUCOSE 2021-12-21 14:02:00 [facility] ECG 12-LEAD 2021-12-21 13:37:23 [facility] HC COMPLETE BLD COUNT 2021-12-21 06:25:00 [facility] W/AUTO DIFF BASIC METABOLIC PANEL 2021-12-21 06:25:00 [facility] ESTIMATED GFR 2021-12-21 06:25:00 [facility] POC GLUCOSE 2021-12-21 03:00:00 [facility] POC GLUCOSE 2021-12-20 23:08:00 [facility] TTE COMPLETE, W CONTRAST, 2021-12-20 20:40:00 [facility] W DOPPLER ([id number]) POC GLUCOSE 2021-12-20 19:45:00 [facility] CV CARDIAC PET STRESS 2021-12-20 18:04:26 [facility] CV CARDIAC PET MYOCARDIAL 2021-12-20 18:04:26 Jono Costello [facility] PERFUSION IMAGING ANTI XA, UNFRACTIONATED 2021-12-20 16:44:00 [facility] BASIC METABOLIC PANEL 2021-12-20 10:13:00 [facility] PARTIAL THROMBOPLASTIN 2021-12-20 10:13:00 [facility] TIME (PTT) ESTIMATED GFR 2021-12-20 10:13:00 [facility] HC COMPLETE BLD COUNT 2021-12-20 10:13:00 [facility] W/AUTO DIFF POC GLUCOSE 2021-12-20 10:06:00 [facility] COVID-19 QUALITATIVE 2021-12-20 08:22:00 [facility] RT-PCR COVID-19 ANTI-SPIKE IGG 2021-12-20 08:22:00 [facility] ANTIBODY TITER COVID-19 SEROLOGY PATIENT 2021-12-20 08:22:00 [facility] SURVEILLANCE HC COMPLETE BLD COUNT 2021-12-20 08:22:00 [facility] W/AUTO DIFF BASIC METABOLIC PANEL 2021-12-20 08:22:00 [facility] HEMOGLOBIN A1C 2021-12-20 08:22:00 [facility] LIPID PANEL 2021-12-20 08:22:00 [facility] THYROID STIMULATING 2021-12-20 08:22:00 [facility] HORMONE T4, FREE 2021-12-20 08:22:00 [facility] TROPONIN T 2021-12-20 08:22:00 [facility] PROTHROMBIN TIME WITH INR 2021-12-20 08:22:00 [facility] PARTIAL THROMBOPLASTIN 2021-12-20 08:22:00 [facility] TIME (PTT) ANTI XA, UNFRACTIONATED 2021-12-20 08:22:00 [facility] ESTIMATED GFR 2021-12-20 08:22:00 [facility] SMEAR REVIEW 2021-12-20 08:22:00 [facility] POC GLUCOSE 2021-12-20 08:11:00 [facility] ECG 12-LEAD 2021-12-20 07:53:41 [facility] EXTERNAL PROVIDER RECORDS 2021-11-19 06:01:00 Doctor Unassigned, [facility] [place] [facility] POCT GLUCOSE (AUTOMATED) 2021-11-02 22:49:[address] [facility] POCT GLUCOSE (AUTOMATED) 2021-11-02 17:06:[address] [facility] POCT GLUCOSE (AUTOMATED) 2021-11-02 13:30:[address] [facility] TROPONIN I 2021-11-02 09:29:00 Alexandra Stephenson [facility] BASIC METABOLIC PANEL 2021-11-02 09:29:00 Sridhar Gordon [facility] (NA, K, CL, CO2, GLUCOSE, Medica l Branch BUN, CREATININE, CA) CBC WITH DIFF 2021-11-02 09:29:00 [facility] N-TERMINAL PRO-BNP 2021-11-02 09:29:00 Alexandra Stephenson [facility] POCT GLUCOSE (AUTOMATED) 2021-11-02 01:27:[address] [facility] POCT GLUCOSE (AUTOMATED) 2021-11-01 17:37:[address] [employer] [facility] POCT GLUCOSE (AUTOMATED) 2021-11-01 13:40:[address] [facility] POCT GLUCOSE (AUTOMATED) 2021-11-01 01:10:[address] [facility] POCT GLUCOSE (AUTOMATED) 2021-10-31 22:28:[address] [facility] POCT GLUCOSE (AUTOMATED) 2021-10-31 17:29:00 [facility] 2021-10-31 16:25:00 Alexandra Stephenson [facility] TRANSTHORACIC ECHO (TTE) 2021-10-31 15:53:00 Alexandra Stephenson [facility] COMPLETE W/ CONTRAST [facility] POCT GLUCOSE (AUTOMATED) 2021-10-31 13:39:00 Martha Drake [facility] TROPONIN I 2021-10-31 10:08:[address] [facility]IC MET[facility]OLIC PANEL 2021-10-31 10:08:00 [facility] (NA, K, CL, CO2, GLUCOSE, Medica l Branch BUN, CREATININE, CA) LIPID PANEL ([id number])(TOTAL 2021-10-31 10:08:00 Alexandra Stephenson [facility] TRIGLYCERIDES, HDL) CBC WITH DIFF 2021-10-31 10:08:00 [facility] URIN[facility]YSIS 2021-10-31 10:08:00 [facility] N-TERMINAL PRO-BNP 2021-10-31 10:08:00 Alexandra Stephenson [facility] TROPONIN I 2021-10-31 06:17[facility]00 [facility] 2021-10-31 01:30:56 Martha Drake [facility] LIPASE 2021-10-31 01:25:00 Martha Drake [facility] TROPONIN I 2021-10-31 01:25:00 Martha Drake [facility] COMP. METABOLIC PANEL 2021-10-31 01:25:00 Martha Drake [facility] ([id number]) [facility] [place] CBC WITH DIFF 2021-10-31 01:25:00 Martha Drake [facility] GLYCOSYLATED HEMOGLOBIN 2021-10-31 01:25:00 Sarah Harrell [facility] (A1C) [facility] PROTHROMBIN TIME / INR 2021-10-31 01:25:00 Martha Drake [facility] ACTIVATED PARTIAL 2021-10-31 01:25:00 Martha Drake [facility] THRMPLAS JACEK [facility] N-TERMINAL PRO-BNP 2021-10-31 01:25:00 Martha Drake [facility] COVID-19 (ID NOW RAPID 2021-10-31 01:25:00 Martha Drake [facility] TESTING) Medical Branch LAB ONLY COVID 2021-10-31 01:25:00 Martha Drake [facility] INTERPRETATION [facility] HB ECG ROUTINE & RHYTHM 2021-10-31 01:20:03 Martha Drake [facility] STRIP [facility] URINALYSIS 2021-04-25 21:01:00 Nallely Bhat [facility] XR LUMBAR SPINE 2 VW 2021-04-25 18:41:00 Nallely Bhat [facility] XR HIPS 2 VW LEFT 2021-04-25 18:41:00 Nallely Bhat [facility] CONSENT/REFUSAL FOR 2021-04-25 15:43:06 Doctor Unassigned, [facility] DIAGNOSIS AND TREATMENT [place] [facility] CT CERVICAL SPINE WO 2020-06-26 09:35:01 Martha Drake [facility] CT LUMBAR SPINE WO 2020-06-26 09:35:01 Martha Drake [facility] CT THORACIC SPINE WO 2020-06-26 09:35:01 Martha Drake [facility] UNILATERAL DUPLEX SCAN OF 2020-05-24 14:53:40 [facility] [place] XR ANKLE 3+ VW LEFT 2020-05-24 13:22:26 Charanjit Heck [facility] HEPATIC FUNCTION PANEL 2020-05-24 13:13:00 Charanjit Heck [facility] ([id number]) (ALB,T.PRO,BILI Medical Branch T,BU/BC,ALT,AST,ALK PHOS) BASIC METABOLIC PANEL 2020-05-24 13:13:00 Charanjit Heck [facility] (NA, K, CL, CO2, GLUCOSE, Medica l Branch BUN, CREATININE, CA) CBC WITH DIFFERENTIAL 2020-05-24 13:13:00 Charanjit Heck [facility] PROTHROMBIN TIME / INR 2020-05-24 13:13:00 [facility]it Heck [facility] ACTIVATED PARTIAL 2020-05-24 13:13:00 Charanjit Heck [facility] NOTICE OF PRIVACY 2020-05-24 11:38:26 Doctor Unassigned, [facility]REFUSAL FOR 2020-05-24 11:35:52 Doctor Unassigned, [facility] POCT GLUCOSE (AUTOMATED) 2020-03-23 22:32:00 Jamel Flores [facility] POCT GLUCOSE (AUTOMATED) 2020-03-23 18:07:00 Jam[facility] PO[facility] GLU[facility]SE (AUTOMATED) 2020-03-23 14:57:00 Jamel Flores [facility] ECHO ROUTINE W/DOPPLER 2020-03-23 13:33:57 Tereza Cano [facility] EKG-12 LEAD 2020-03-23 12:56:59 Jamel Flores [facility] MAGNESIUM 2020-03-23 11:15:00 Jerome [facility] TROPONIN I 2020-03-23 11:15:00 Jerome [facility] BASIC METABOLIC PANEL 2020-03-23 11:15:00 [facility] (NA, K, CL, CO2, GLUCOSE, Medica l Branch BUN, CREATININE, CA) PROTHROMBIN TIME / INR 2020-03-23 11:15:00 Tereza Cano [facility] ACTIVATED PARTIAL 2020-03-23 11:15:00 Bodani, Tereza [facility] EKG-12 LEAD 2020-03-23 07:51:19 Jamel Flores [facility] MAGNESIUM 2020-03-23 05:55:00 Jerome [facility] TROPONIN I 2020-03-23 05:55:00 Jerome [facility] BASIC METABOLIC PANEL 2020-03-23 05:55:00 Hannah Canoformerly [facility] (NA, K, CL, CO2, GLUCOSE, Medica l Branch BUN, CREATININE, CA) LIPID PANEL ([id number])(TOTAL 2020-03-23 05:55:00 Tereza Cano [facility] CHOLESTEROL, [facility] TRIGLYCERIDES, HDL) PROTHROMBIN TIME / INR 2020-03-23 02:55:00 [facility] ACTIVATED PARTIAL 2020-03-23 02:55:00 Babar [facility] XR CHEST 2 VW 2020-03-23 01:52:37 Hayder Esteban [facility] CORONAVIRUS COVID-19 2020-03-23 00:50:00 [facility] FERRITIN SERUM 2020-03-22 23:36:00 Jerome [facility] TROPONIN I 2020-03-22 23:36:00 Hayder Esteban [facility] COMP. METABOLIC PANEL 2020-03-22 23:36:00 Esteban Singletary [facility] ([id number]) [facility] IRON PANEL 2020-03-22 23:36:00 [facility] CBC WITH DIFFERENTIAL 2020-03-22 23:36:00 Hayder Esteban [facility] N-TERMINAL PRO-BNP 2020-03-22 23:36:00 Esteban Singletary [facility] EKG-12 LEAD 2020-03-22 23:08:53 Esteban Singletary [facility] EKG-12 LEAD 2020-03-22 23:08:15 Esteban Singletary [facility] XR CHEST 1 VW 2020-03-21 20:42:35 Myles Harry [facility] LACTIC ACID WHOLE BLOOD 2020-03-21 20:38:00 Myles Harry [facility] LIPASE 2020-03-21 20:19:00 Myles Harry [facility] TROPONIN I 2020-03-21 20:19:00 Myles Harry [facility] COMP. METABOLIC PANEL 2020-03-21 20:19:00 Myles Harry [facility] ([id number]) [facility] PROTHROMBIN TIME / INR 2020-03-21 20:19:00 Myles Harry [facility] N-TERMINAL PRO-BNP 2020-03-21 20:19:00 Myles Harry [facility] CORONAVIRUS COVID-19 2020-03-21 20:19:00 Myles Harry [facility] EKG-12 LEAD 2020-03-21 20:11:28 Myles Harry [facility] POCT GLUCOSE (AUTOMATED) 2020-03-07 20:56:00 [facility]ree [facility] POCT GLUCOSE (AUTOMATED) 2020-03-07 15:34:00 [facility]ree [facility] POCT GLUCOSE (AUTOMATED) 2020-03-07 12:56:00 [facility] URIC ACID 2020-03-07 10:14:00 Holland Briscoe [facility] TROPONIN I 2020-03-07 10:14:00 Lulu Harris [facility] BASIC METABOLIC PANEL 2020-03-07 10:14:00 [facility] (NA, K, CL, CO2, GLUCOSE, Medica l Branch BUN, CREATININE, CA) CBC WITH DIFFERENTIAL 2020-03-07 10:14:00 [facility]-TERMINAL PRO-BNP 2020-03-07 10:14:00 Lulu Harris [facility] POCT GLUCOSE (AUTOMATED) 2020-03-06 21:16:00 Kyree [facility] POCT GLUCOSE (AUTOMATED) 2020-03-06 16:10:00 Edionricardo [facility] POCT GLUCOSE (AUTOMATED) 2020-03-06 12:38:00 Edionricardo [facility] TROPONIN I 2020-03-06 08:51:00 Lulu Harris [facility] BASIC METABOLIC PANEL 2020-03-06 08:51:00 [facility] (NA, K, CL, CO2, GLUCOSE, Medica l Branch BUN, CREATININE, CA) CBC WITH DIFFERENTIAL 2020-03-06 08:51:00 [facility] (AUTOMATED) 2020-03-06 01:16:00 Edionricardo [facility] TROPONIN I 2020-03-05 23:25:00 [facility] PO[facility] GLU[facility]SE (AUTOMATED) 2020-03-05 21:14:00 Edionricardo [facility] POCT GLUCOSE (AUTOMATED) 2020-03-05 16:39:00 Edionricardo [facility] POCT GLUCOSE (AUTOMATED) 2020-03-05 12:47:00 Edtylerricardo [facility] TROPONIN I 2020-03-05 09:50:00 Edconsuelo [facility] BASIC METABOLIC PANEL 2020-03-05 09:50:00 Kyree [facility] (NA, K, CL, CO2, GLUCOSE, Medica l Branch BUN, CREATININE, CA) CBC WITH DIFFERENTIAL 2020-03-05 09:50:00 Edformerly [facility] EKG-12 LEAD 2020-03-05 00:36:[address] [facility] EKG-12 LEAD 2020-03-05 00:31:03 Bobo Urrutia [facility] CORONAVIRUS COVID-19 2020-03-05 00:03:00 Charanjit Heck [facility] XR CHEST 1 VW 2020-03-04 23:58:59 Charanjit Heck [facility] LIPASE 2020-03-04 23:29:00 Umang Charanjit [facility] TROPONIN I 2020-03-04 23:29:00 [facility] HEPAT[facility] FUNCTION PANEL 2020-03-04 23:29:00 Charanjit Heck [facility] ([id number]) (ALB,T.PRO,BILI Medical Branch T,BU/BC,ALT,AST,ALK PHOS) BASIC METABOLIC PANEL 2020-03-04 23:29:00 Charanjit Heck [facility] (NA, K, CL, CO2, GLUCOSE, Medica l Branch BUN, CREATININE, CA) CBC WITH DIFFERENTIAL 2020-03-04 23:29:00 Umang Charanjit [facility] PROTHROMBIN TIME / INR 2020-03-04 23:29:00 Charanjit Heck [facility] ACTIVATED PARTIAL 2020-03-04 23:29:00 [facility] THRMPLAS [facility] N-TERMINAL PRO-BNP 2020-03-04 23:29:00 Charanjit Heck [facility] EKG-12 LEAD 2020-03-04 23:15:42 [facility]AD 2020-03-04 23:10:23 [facility] EMERGENCY DEPARTMENT 2020-03-04 05:01:00 Doctor Unassigned, [facility] DOCUMENTS [place] [facility] POCT GLUCOSE (AUTOMATED) 2020-03-02 15:52:[address] [facility] POCT GLUCOSE (AUTOMATED) 2020-03-02 12:39:[address] [facility] MAGNESIUM 2020-03-02 08:57:00 Ivory Leon [facility] BASIC METABOLIC PANEL 2020-03-02 08:57:00 Ivory Leon [facility] (NA, K, CL, CO2, GLUCOSE, Medica l Branch BUN, CREATININE, CA) N-TERMINAL PRO-BNP 2020-03-02 08:57:00 Ivory Leon [facility] POCT GLUCOSE (AUTOMATED) 2020-03-01 20:39:00 Lulu Harris [facility] MAGNESIUM 2020-03-01 08:43:00 Lulu Harris [facility] TROPONIN I 2020-03-01 08:43:00 Carolyn [facility] BASIC METABOLIC PANEL 2020-03-01 08:43:00 Lulu Harris [facility] (NA, K, CL, CO2, GLUCOSE, Medica l Branch BUN, CREATININE, CA) CBC WITH DIFFERENTIAL 2020-03-01 08:43:00 Lulu Harris [facility] N-TERMINAL PRO-BNP 2020-03-01 08:43:00 Carolyn [facility] VITAMIN B12, LEVEL 2020-03-01 03:49:00 Carolyn [facility] FOLATE 2020-03-01 03:49:00 Carolyn [facility] SEDIMENTATION RATE 2020-03-01 03:49:00 Carolyn [facility] POCT GLUCOSE (AUTOMATED) 2020-03-01 03:39:00 Lulu Harris [facility] PHOSPHORUS 2020-03-01 02:28:00 Steven [facility] URIC ACID 2020-03-01 02:28:00 Carolyn [facility] TROPONIN I 2020-03-01 02:28:00 Carolyn [facility] HEPATIC FUNCTION PANEL 2020-03-01 02:28:00 Ivory Leon [facility] ([id number]) (ALB,T.PRO,BILI [facility] T,BU/BC,ALT,AST,ALK PHOS) PROTHROMBIN TIME / INR 2020-03-01 02:28:00 Carolyn alek [facility] N-TERMINAL PRO-BNP 2020-03-01 02:28:00 Lulu Harris [facility] PROCALCITONIN 2020-03-01 02:28:00 Carolyn alek [facility] EKG-12 LEAD 2020-03-01 01:54:29 Carolyn [facility] EKG-12 LEAD 2020-02-29 23:16:21 Bobo Urrutia [facility] XR CHEST 1 VW COVID 2020-02-29 23:14:25 Bobo Urrutia [facility] EKG-12 LEAD 2020-02-29 23:13:50 Bobo Urrutia [facility] LACTIC ACID WHOLE BLOOD 2020-02-29 22:21:00 Bobo Urrutia [facility] CORONAVIRUS COVID-19 2020-02-29 22:20:00 Bobo Urrutia [facility] TESTING [facility] CREATINE KINASE 2020-02-29 22:14:00 Carolyn [facility] URIC ACID 2020-02-29 22:14:00 Carolyn [facility] LIPASE 2020-02-29 22:14:00 Bobo Urrutia [facility] MAGNESIUM 2020-02-29 22:14:00 Carolyn [facility] TROPONIN I 2020-02-29 22:14:00 Bobo Urrutia [facility] THYROID STIMULATING 2020-02-29 22:14:00 Carolyn alek [facility] HORMONE [facility] BASIC METABOLIC PANEL 2020-02-29 22:14:00 Bobo Urrutia [facility] (NA, K, CL, CO2, GLUCOSE, Medica l Branch BUN, CREATININE, CA) CBC WITH DIFFERENTIAL 2020-02-29 22:14:00 Bobo Urrutia [facility] GLYCOSYLATED HEMOGLOBIN 2020-02-29 22:14:00 Ivory Leon [facility] (A1C) [facility] N-TERMINAL PRO-BNP 2020-02-29 22:14:00 Ivory Leon [facility] EKG-12 LEAD 2020-02-29 21:59:12 Bobo Urrutia [facility] EKG-12 LEAD 2020-02-29 21:48:49 Bobo Urrutia [facility] EMERGENCY DEPARTMENT 2020-02-29 05:01:00 Doctor Unassigned, [facility] DOCUMENTS [place] [facility] POCT GLUCOSE (AUTOMATED) 2020-01-17 18:15:00 Kyree [facility] TROPONIN I 2020-01-17 16:31:00 Kyree [facility] ACTIVATED PARTIAL 2020-01-17 16:31:00 Ivory Leon [facility] POCT GLUCOSE (AUTOMATED) 2020-01-17 11:56:00 Kyree [facility] TROPONIN I 2020-01-17 09:52:00 Kyree [facility] BASIC METABOLIC PANEL 2020-01-17 09:52:00 [facility] (NA, K, CL, CO2, GLUCOSE, Medica l Branch BUN, CREATININE, CA) CBC WITH DIFFERENTIAL 2020-01-17 09:52:00 [facility]IV[facility] PARTIAL 2020-01-17 09:52:00 Kyree [facility] POCT GLUCOSE (AUTOMATED) 2020-01-16 23:59:00 Kyree [facility] EKG-12 LEAD 2020-01-16 22:15:50 Kyree [facility] TROPONIN I 2020-01-16 20:04:00 Kyree [facility] ACTIVATED PARTIAL 2020-01-16 20:04:00 Ayo Scruggs [facility] POCT GLUCOSE (AUTOMATED) 2020-01-16 17:05:00 Kyree [facility] POCT GLUCOSE (AUTOMATED) 2020-01-16 13:38:00 Kyree [facility] TROPONIN I 2020-01-16 11:11:00 Kyree [facility] LIPID PANEL ([id number])(TOTAL 2020-01-16 11:11:00 Kyree [facility] TRIGLYCERIDES, HDL) ACTIVATED PARTIAL 2020-01-16 11:11:00 Kyree [facility] CRITICAL CARE 2020-01-16 05:48:18 Charanjit Heck [facility] XR CHEST 1 VW 2020-01-16 04:46:44 Umang Charanjit [facility] TROPONIN I 2020-01-16 04:38:00 Umang Charanjit [facility] HEPATIC FUNCTION PANEL 2020-01-16 04:38:00 Charanjit Heck [facility] ([id number]) (ALB,T.PRO,BILI Medical Branch T,BU/BC,ALT,AST,ALK PHOS) BASIC METABOLIC PANEL 2020-01-16 04:38:00 Charanjit Heck [facility] (NA, K, CL, CO2, GLUCOSE, Medica l Branch BUN, CREATININE, CA) CBC WITH DIFFERENTIAL 2020-01-16 04:38:00 Umang Charanjit [facility] GLYCOSYLATED HEMOGLOBIN 2020-01-16 04:38:00 [facility] PROTHROMBIN TIME / INR 2020-01-16 04:38:00 Charanjit Heck [facility] ACTIVATED PARTIAL 2020-01-16 04:38:00 [facility] TH[facility] JACEK [facility] N-TERMINAL PRO-BNP 2020-01-16 04:38:00 Charanjit Heck [facility] EKG-12 LEAD 2020-01-16 04:37:48 Umang [facility] EKG-12 LEAD 2020-01-16 04:35:35 Umang Charanjit [facility] AUTHORIZATION FOR RELEASE 2019-07-12 05:01:00 Doctor Unassigned, [facility] [place] [facility] 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 T[facility]il[facility]omy [facility] Vasectomy [facility] Nephrectomy [facility] Neph[facility] Coronary artery bypass [facility] graft Vasectomy [facility] Tonsillectomy [facility] Plan of Care Planned Activity Planned Date Details Comments Source Future Scheduled 2022-07-16 [facility] 04:38:26 VACCINES (1 of 3 - 3-dose series) [code = HEPATITIS B VACCINES (1 of 3 - 3-dose series)] Future Scheduled 2022-07-16 DIABETIC FOOT EXAM [facility] 04:38:26 [code = DIABETIC FOOT EXAM] Future Scheduled 2022-07-16 [facility]ABETES: [facility] 04:38:26 EYE EXAM [code = DIABETES: RETINAL EYE EXAM] Future Scheduled 2022-07-16 SHINGLES VACCINES [facility] 04:38:26 (1 of 2) [code = SHINGLES VACCINES (1 of 2)] Future Scheduled 2022-07-16 COVID-19 VACCINE ([facility] 04[facility]38:26 - Booster for Moderna series) [code = COVID-19 VACCINE (3 - Booster for Moderna series)] Future Scheduled 2022-07-16 INFLUENZA VACCINE [facility] 04:38:26 [code = INFLUENZA VACCINE] Future Scheduled 2022-07-03 [facility] 03:27:45 VACCINES (1 of [...] Facility Department ID 2022-03-06 Outpatient [facility] [id number] [place] 08:51:10 [id number] Health 2021-12-16 [id number] 11:30:00 Jim 02 [facility] 2021[facility]16 [facility] [facility] [id number] Common 09:19:01 [facility] 2021-12-11 Outpatient L[facility], [facility] [id number] Common 14:38:21 Anneliese [facility] 2021-12-11 Outpatient Lester, [facility] [id number] Common 11:50:18 Anneliese [facility] 2021-09-16 Emergency [facility] [id number] Univers 00:23:34 ity [facility] 2021-09-13 Emergency [facility] [id number] Univers 11:42:35 ity [facility] 2021-09-13 Emergency [facility] [id number] Univers [facility]:40[facility] 2022-07-12 Emergency X [facility] ERT [id number] Univers 00:31:00 01:59:00 SURAJ ity [facility] 2022-07-12 2022-07-12 Emergency [facility] 1.2.840.114 [id number] Univers 00:31:00 01:59:00 Suraj RAMSEY 350.1.13.10 ity [facility] 4.2.7.2.686 [facility] [phone] [place] [address] [address] 2022-06-11 2022-06-11 Transition SHAREE Maria 1.2.840.114 [id number] Univers 00:00:00 00:00:00 of Care Supa GRE[place] 350.1.13.10 [place] [phone] [facility] 403 Branch 2022-06-03 2022-06-10 Inpatient X KYRA [facility] ZEFERINO [id number] Univers 09:43:00 16:00:00 EVE itazra [facility] 2022-06-03 2022-06-10 [facility] Ric [facility] 1.2.840.1 14 [id number] Univers 09:43:00 16:00:00 Encounter Eve Rae 350.1.13.10 [place] [id number] [facility] 081 [address] 2022-06-02 2022-06-02 Transition SHAREE Silva 1.2.840.114 [id number] Univers 00:00:00 00:00:00 of Marguerite [place] 350.1.13.10 [place] [phone] [facility] 403 [address] 2022-05-23 2022-05-31 Inpatient X PERFECTO GARNICA [facility] ZEFERINO 1 [id number] Univers 23:06:00 16:10:00 PERFECTO GARNICA ity [facility] 2022-05-23 2022-05-31 [facility] Daivs Fam [facility] 1.2.840.11 4 [id number] Univers 23:06:00 16:10:00 Encounter [facility] 350.1. 13.10 ity of [place] 4.2.7.2.686 [place] as [facility] [phone] Medical Yamel Garnicashua [place] [address] [facility]) 2022-04-23 2022-04-23 ambulatory [facility] [id number] Common 00:00:00 00:00:00 [facility] 2022-04-16 2022-04-16 Emergency X RAJINDER [facility] ERT [id number] Univers 22:29:00 23:27:00 LUZ ity [facility] 2022-04-16 2022-04-16 [facility] 1.2.854.913 [id number] Univers 22:29:00 23:27:00 Luz RAMSEY 350.1.13.10 i ty [facility] 4.2.7.2.686 [facility] [id number] [place] [address] Branch 2022-03-05 2022-03-11 Inpatient [facility] [id number] Memoria 11:12:00 03:30:[address] 2022-03-05 2022-03-11 Inpatient [facility] [id number] Memoria 11:12:00 03:30:00 r Kennedy [address] [place] [address] 2022-03-05 2022-03-10 [facility]10 [facility] 06:12:00 22:30:00 BRODIE 2022-03-05 2022-03-10 [facility] [id number] 06:12:00 22:30:00 Brodie Jermaine Singlteary 2022-03-05 2022-03-[address] [facility] [id number] 06:12:00 06:12:00 Brodie Jermaine Singletary 2022-03-01 2022-03-01 [facility] [id number] Univers 06:52:00 12:04:00 ANGELIKA leon [facility] 2022-03-01 2022-03-01 [facility] 1.2.840.114 [id number] Univers 06:52:00 12:04:00 Angelika [facility]13.10 [facility] 4.2.7.2.686 [facility] [id number] [place] [address] Branch 2021-12-25 2021-12-25 Hospital Attar, 1.2.840.1 [id number] Methodi 07:00:00 23:59:00 Encounter Jono 90887.1.1 356 s t 3.430.2.7 Hospit a .3.223772 l .8 2021-12-25 2021-12-25 [facility], 1.2.840.1 [id number] Methodi 07:00:00 23:59:00 Encounter Jono 35924.1.1 356 s t 3.430.2.7 Hospit a .3.589885 l .8 2021-12-19 2021-12-25 [facility], 1.2.840.1 [id number] Methodi 23:41:00 17:49:00 Encounter Jayson Tejeda. 05056.1.[address] 3.430.2.7 Hospit a .3.681120 l .8 2021-12-19 2021-12-25 [facility] 1.2.840.1 [id number] Methodi 23:41:00 17:49:00 Encounter Jayson Tejeda. 76716.1.[address] 3.430.2.7 Hospit a .3.553429 l .8 2021-12-24 2021-12-24 ambulatory STLMLC ST[facility] [id number] Common 00:00:00 00:00:00 [facility] 2021-12-20 2021-12-20 [facility], 1.2.840.1 [id number] Methodi 11:00:00 23:59:00 Encounter Jono 34087.1.1 193 s t 3.430.2.7 Hospit a .3.186897 l .8 2021-12-20 2021-12-20 [facility] 1.2.840.1 [id number] Methodi 11:00:00 23:59:00 Encounter Jono 55101.1.1 193 s t 3.430.2.7 Hospit a .3.620493 l .8 2021-12-17 2021-12-17 ambulatory STLMLC STLMLC [id number] Common 00:00:00 00:00:00 [facility] 2021-12-16 2021-12-16 ambulatory STLMLC STLMLC [id number] Common 00:00:00 00:00:00 [facility] 2021-11-19 2021-11-19 Jose Alejandro JONES 1.2.840.114 [id number] Univers 00:00:00 00:00:00 Only Unassigned, ASHLEIGH 350.1.13.10 ity of [place] [facility] 4.2.7.2.686 [place] as [phone] [facility] 009 Branch 2021-11-04 2021-11-04 Transition SHAREE Maria 1.2.840.114 [id number] Univers 00:00:00 00:00:00 of Care Supa [place] 350.1.13.10 [place] [id number] [facility] 403 [address] 2021-10-30 2021-11-02 Inpatient X SANDRA [facility] [id number] Univers 19:14:00 18:15:00 AIDA ity of [facility] 2021-10-30 2021-11-02 [facility] 1.2.840. 114 [id number] Univers 19:14:00 18:15:00 Encounter Aida Shah 350.1.13.10 ity of [place]2.[place] [id number] [facility] 081 Branch 2021-05-17 2021-05-17 Letter Pcp, ROBERT 1.2.840.114 [id number] Univers 00:00:00 00:00:00 (Out) Patient ASHLEIGH 350.1.13.10 it y of [place] Not HOSP[place] [id number] [facility] 019 Branch 2021-04-25 2021-04-25 Emergency Cece, TRAUMA 1.2.955.653 [id number] Univers 10:43:00 17:38:00 [facility] 350.1.13.10 i ty of [place] [id number] [facility] 014 Branch 2020-06-26 2020-06-26 Emergency Critical access hospital 1.2.522.003 [id number] Univers 03:50:00 06:45:00 Martha Ramsey 350.1.13.10 it[place] of [place] [phone] [facility] 084 [place] 2020-06-26 2020-06-26 Emergency Critical access hospital 1.2.334.887 [id number] 7372 03:50:00 06:45:00 Martha Ramsey 350.1.13.10 [place] 4.2.7.2.686 [place] [id number] [facility] 2020-05-24 2020-05-24 Emergency [facility] 1.2.562.611 [id number] [facility] 06:40:47 10:54:00 Charanjit Ramsey 350.1.13.10 i ty of [place] [phone] [address] 2020-05-24 2020-05-24 Emergency [facility] 1.2.731.087 [id number] 06:40:47 10:54:00 Charanjit Ramsey 350.1.13.10 [place] 4.2.7.2.686 [place] [phone] [facility] 2020-03-29 2020-03-29 Letter Jamel Flores 1.2.840.114 [id number] [id number] Univers 00:00:00 00:00:00 (Out) T Ashleigh 350.1.13.10 it y of Hospital 4.2.7.2.686 [place] [id number] [place] [address] [place] 2020-03-29 2020-03-29 Jamel Dunn 1.2.840.114 [id number] 00:00:00 00:00:00 (Out) T [place] 350.1.13.10 [facility] 4.2.7.2.686 [id number] [facility] 2020-03-26 2020-03-26 Transition Sharee George 1.2.840.114 755 [id number] Univers 00:00:00 00:00:00 of Care Sherrell Grewal 350.1.13.10 it y of [place] [id number] [facility] 403 [address] 2020-03-26 2020-03-26 Transition Sharee George 1.2.840.114 755 [id number] 00:00:00 00:00:00 of Care Sherrell Grewal 350.1.13.10 [place] 4.2.7.2.686 [id number] 403 2020-03-22 2020-03-23 Emergency Sallie Eckert 1.2.840. 114 [id number] Univers 18:02:47 21:55:00 Jamel Flores [address].1.13.[address] [facility] 4.2.7.2.686 [place] [phone] [place] [address]49 [place] 2020-03-22 2020-03-23 Outpatient X JAMEL FLORES [facility] 1026 [id number] Univers 18:02:47 21:55:00 ity of [facility] 2020-03-21 2020-03-21 Emergency [facility] 1.2.840.114 [id number] Univers 15:02:08 17:16:00 Mylesazra Ramsey 350.1.13.10 i ty [place] [phone] [address] 2020-03-21 2020-03-21 Emergency [facility] [id number] Univers 15:02:08 17:16:00 MYLES ity [facility] 2020-03-13 2020-03-13 Outpatient Raju_P [facility] G [id number] [place] 05:24:00 05:24:00 [facility] 2020-03-08 2020-03-08 Transition Sharee Cool .2.840.114 753 [id number] Univers 00:00:00 00:00:00 of Care Prema Hahny 350.1.13.10 i ty of [place] [id number] [facility] 403 [address] 2020-03-04 2020-03-07 [facility] Umang Charanjit [facility] 1.2.840.1 14 [id number] Univers 18:01:05 18:00:00 Encounter Sarah Harrell 350.1.13.10 ity of [place].2.[place] [id number] [place] 97[address]41 [place] 2020-03-04 2020-03-07 Inpatient X EDIONRICARDO [facility] ZEFERINO [id number] Univers 18:01:05 18:00:00 SARAH leon [facility] 2020-03-03 2020-03-03 Transition Sharee Silva 1.2.840.114 [id number] Univers 00:00:00 00:00:00 of Care Isatu Hahny 350.1.13.10 it y of [place] [id number] [facility] 403 [place] 2020-02-29 2020-03-02 [facility] Renan Vinnie [facility] 1.2.840.11 4 [id number] Univers 16:53:09 12:18:00 Encounter Lulu Harris 350.1.13.10 [place] of [place] [phone] [facility] 081 [place] 2020-02-29 2020-03-02 Inpatient X ARPITAUDREY [facility] ZEFERINO [id number] Univers 16:53:09 12:18:00 LULUCHERISE leon [facility] 2020-02-15 2020-02-15 Outpatient R CHAVA [facility] [id number] Univers 11:30:00 11:30:00 GEORGIANADANIELLA [facility] 2020-02-15 2020-02-15 [facility] 1.2.840.114 [id number] Univers 08:13:42 08:43:42 ne Visit Rosemary Ramsey 350.1.13.10 [place] [phone] Tn dical nal [address] [facility] 2020-01-18 2020-01-18 Transition Wes, Belindakvng 1.2.840.114 [id number] [id number] Univers 00:00:00 00:00:00 of Care Ana M Grewal 350.1.13.10 it y of [place] [id number] [facility] 403 [place] 2020-01-15 2020-01-17 [facility] Charanjit Heck [facility] 1.2.840.1 14 [id number] Univers 22:33:37 16:58:00 Encounter Sarah Harrell 350.1.13.10 ity of [place] 4.2.7.2.686 [facility] [phone] [facility] 081 [address] 2020-01-15 2020-01-17 Outpatient Marybel HARRELL [facility] [id number] Univers 22:33:37 16:58:00 BRIGIDAY ity [facility] 2019-10-07 2019-10-07 [facility] [id number] Common 10:48:00 10:48:00 [facility] [address] [facility] 2019-10-05 2019-10-05 Outpatient [facility] [id number] Common 16:06:00 16:06:00 [facility] [address] [facility] 2019-07-27 2019-07-27 [facility] 1.2.840.114 [id number] Univers 00:00:00 00:00:00 Georgianadaniella [place] 350.1.13.10 i ty [facility] 4.2.7.2.686 [facility] [phone] Tn dical nal [address] [facility] 2019-07-12 2019-07-12 Outpatient [facility] [id number] Common 16:24:00 16:24:00 [facility] [address] [facility] 2019-07-12 2019-07-12 Orders Doctor JONES 1.2.840.114 [id number] Univers 00:00:00 00:00:00 Only Unassigned, ASHLEIGH 350.1.13.10 ity of [place] [facility] 4.2.7.2.686 [place] [phone] [facility] 009 [address] 2019-07-06 2019-07-06 Out[facility] [id number] Common 14:00:00 14:00:00 [facility] [address] [facility] 2013-03-03 2013-03-07 Inpatient nullFlavo [place] [id number] Memoria 09:30:00 09:25:00 rachael Benavides 2013-03-03 2013-03-07 Inpatient nullFlavo MH [id number] Memoria 09:30:00 09:25:00 r [facility] 01 l [place] 2013-02-03 2013-02-03 MARIA E nullFlavo [id number] Memoria 08:45:00 11:45:00 r [facility] 00 l [place] 2013-02-03 2013-02-03 MARIA E nereidaFlavo [id number] 75 Memoria 08:45:00 11:45:00 r [facility] l [place] Results Test Description Test Time Test Comments [...] L [Au tomated message] The system which ge nerated this [...] 34.1 g/dL 31.2-35 RDW-SD (test code = 06377-2) 50.7 fL 38.5-51.6 RDW-CV (test code = 788-0) 14.8 % 12.1-15.4 PLT (test code = 777-3) See_Comment [Au tomated message] The system which ge nerated this result transmit diamante reference range: 150 - 32 8 10*3/?L. The reference range was not used to interpret th is result as normal/abnormal . MPV (test code = 89123-3) 9.4 fL 9.8-13 L NRBC/100 WBC (test code = See_Comment [ Automated message] The 8478030380) system which [employer] nerated this result transmit diamante reference range: 0.0 - 10 .0 /100 WBCs. The reference r corey was not used to interpr et this result as normal/abnor mal. NRBC x10^3 (test code = See_Comment [Au tomated message] The 7654143915) system which [employer] nerated this result transmit diamante reference range: 10*3/?L. The reference range was not u sed to interpret this result as normal/abnormal . GRAN MAT (NEUT) % (test code 67.3 % = 770-8) IMM GRAN % (test code = 0.20 % 2022200432) LYMPH % (test code = 736-9) 20.2 % MONO % (test code = 5905-5) 9.9 % EOS % (test code = 713-8) 1.7 % BASO % (test code = 706-2) 0.7 % GRAN MAT x10^3(ANC) (test 3.99 10*3/uL 1.99-6.95 code = 2944484133) IMM GRAN x10^3 (test code = 0-0.06 8732266176) LYMPH x10^3 (test code = 1.20 10*3/uL 1.09-3.23 731-0) MONO x10^3 (test code = 0.59 10*3/uL 0.36-1.02 742-7) EOS x10^3 (test code = 0.10 10*3/uL 0.06-0.53 711-2) BASO x10^3 (test code = 0.04 10*3/uL 0.01-0.09 704-7) Lab Interpretation (test Abnormal code = 73038-5) [facility] GLUCOSE (AUTOMATED)2022-06-10 16:54:59 Test Item Value Reference Range Interpretation Comments POCT GLU (test code = 2745150716) 301 mg/dL 70-110 H Lab Interpretation (test code = Abnormal 87112-6) [facility] GLUCOSE (AUTOMATED)2022-06-10 16:54:59 Test Item Value Reference Range Interpretation Comments POCT GLU (test code = 2855758871) 163 mg/dL 70-110 H Lab Interpretation (test code = Abnormal 76410-3) [facility]10 13:27:49 Test Item Value Reference Range Interpretation Comments POCT GLU (test code = 7999129042) 177 mg/dL 70-110 H Lab Interpretation (test code = Abnormal 87153-3) [facility] GLUCOSE (AUTOMATED)2022-06-10 09:33:01 Test Item Value Reference Range Interpretation Comments POCT GLU (test code = 8057779211) 179 mg/dL 70-110 H Lab Interpretation (test code = Abnormal 47807-8) [facility] GLUCOSE (AUTOMATED)2022-06-10 05:14:48 Test Item Value Reference Range Interpretation Comments POCT GLU (test code = 1597045516) 223 mg/dL 70-110 H Lab Interpretation (test code = Abnormal 63348-6) [facility] GLUCOSE (AUTOMATED)2022-06-10 01:41:35 Test Item Value Reference Range Interpretation Comments POCT GLU (test code = 1855630348) 213 mg/dL 70-110 H Lab Interpretation (test code = Abnormal 40376-9) [facility] GLUCOSE (AUTOMATED)2022-06-09 21:56:12 Test Item Value Reference Range Interpretation Comments POCT GLU (test code = 8117937125) 233 mg/dL 70-110 H Lab Interpretation (test code = Abnormal 33005-2) [facility] GLUCOSE (AUTOMATED)2022-06-09 21:56:07 Test Item Value Reference Range Interpretation Comments POCT GLU (test code = 9750180526) 223 mg/dL 70-110 H Lab Interpretation (test code = Abnormal 45972-6) [facility] GLUCOSE (AUTOMATED)2022-06-09 17:25:54 Test Item Value Reference Range Interpretation Comments POCT GLU (test code = 2545768965) 310 mg/dL 70-110 H Lab Interpretation (test code = Abnormal 01603-3) [facility] GLUCOSE (AUTOMATED)2022-06-09 13:11:43 Test Item Value Reference Range Interpretation Comments POCT GLU (test code = 3573246435) 221 mg/dL 70-110 H Lab Interpretation (test code = Abnormal 27619-9) [facility] GLUCOSE (AUTOMATED)2022-06-09 12:31:00 Test Item Value Reference Range Interpretation Comments POCT GLU (test code = 1094871581) 157 mg/dL 70-110 H Lab Interpretation (test code = Abnormal 95441-8) [facility] GLUCOSE (AUTOMATED)2022-06-09 10:39:53 Test Item Value Reference Range Interpretation Comments POCT GLU (test code = 3223875595) 185 mg/dL 70-110 H Lab Interpretation (test code = Abnormal 76912-1) [facility] GLUCOSE (AUTOMATED)2022-06-09 05:11:06 Test Item Value Reference Range Interpretation Comments POCT GLU (test code = 4811353064) 213 mg/dL 70-110 H Lab Interpretation (test code = Abnormal 25223-8) [facility] GLUCOSE (AUTOMATED)2022-06-09 01:07:59 Test Item Value Reference Range Interpretation Comments POCT GLU (test code = 7245850191) 192 mg/dL 70-110 H Lab Interpretation (test code = Abnormal 06206-8) [facility] GLUCOSE (AUTOMATED)2022-06-08 21:46:21 Test Item Value Reference Range Interpretation Comments POCT GLU (test code = 1771964483) 234 mg/dL 70-110 H Lab Interpretation (test code = Abnormal 22074-0) [facility] GLUCOSE (AUTOMATED)2022-06-08 17:00:47 Test Item Value Reference Range Interpretation Comments POCT GLU (test code = 7749711820) 449 mg/dL 70-110 H Lab Interpretation (test code = Abnormal 69906-7) [facility] GLUCOSE (AUTOMATED)2022-06-08 14:24:36 Test Item Value Reference Range Interpretation Comments POCT GLU (test code = 9418308643) 464 mg/dL 70-110 HH Lab Interpretation (test code = Abnormal 62021-7) [facility] GLUCOSE (AUTOMATED)2022-06-08 00:49:10 Test Item Value Reference Range Interpretation Comments POCT GLU (test code = 9237808622) 191 mg/dL 70-110 H Lab Interpretation (test code = Abnormal 81478-1) [facility] GLUCOSE (AUTOMATED)2022-06-07 22:27:35 Test Item Value Reference Range Interpretation Comments POCT GLU (test code = 7731668808) 207 mg/dL 70-110 H Lab Interpretation (test code = Abnormal 63033-5) [facility] GLUCOSE (AUTOMATED)2022-06-07 17:00:27 Test Item Value Reference Range Interpretation Comments POCT GLU (test code = 9061077720) 189 mg/dL 70-110 H Lab Interpretation (test code = Abnormal 48051-0) [facility] GLUCOSE (AUTOMATED)2022-06-07 02:39:27 Test Item Value Reference Range Interpretation Comments POCT GLU (test code = 1559613693) 232 mg/dL 70-110 H Lab Interpretation (test code = Abnormal 65019-5) [facility] GLUCOSE (AUTOMATED)2022-06-07 02:39:22 Test Item Value Reference Range Interpretation Comments POCT GLU (test code = 8500665757) 265 mg/dL 70-110 H Lab Interpretation (test code = Abnormal 44434-6) [facility] GLUCOSE (AUTOMATED)2022-06-06 13:16:34 Test Item Value Reference Range Interpretation Comments POCT GLU (test code = 2530721373) 237 mg/dL 70-110 H Lab Interpretation (test code = Abnormal 35272-8) [facility] GLUCOSE (AUTOMATED)2022-06-06 13:02:26 Test Item Value Reference Range Interpretation Comments POCT GLU (test code = 7506553579) 189 mg/dL 70-110 H Lab Interpretation (test code = Abnormal 93394-5) [facility] 11:42:18 Test Item Value Reference Range Interpretation Comments MAGNESIUM (test code = 7981430398) 2.1 mg/dL 1.7-2.4 Lab Interpretation (test code = Normal 31370-8) [facility] METABOLIC PANEL (NA, K, CL, CO2, GLUCOSE, BUN, CREATININE, CA)2022-06-06 11:41:58 Test Item Value Reference Range Interpretation Comments NA (test code = 140 mmol/L 135-145 3227794848) K (test code = 3.8 mmol/L 3.5-5 7771733548) CL (test code = 100 mmol/L 98-108 3851794997) CO2 TOTAL (test code = 31 mmol/L 23-31 9022698077) AGAP (test code = 2-16 0285025701) BUN (test code = 25 mg/dL 7-23 H 3035164608) GLUCOSE (test code = 109 mg/dL 70-110 0198607787) CREATININE (test code = 1.05 mg/dL 0.6-1.25 5563463666) CALCIUM (test code = 9.7 mg/dL 8.6-10.6 5347460438) eGFR (test code = mL/min/1.73m2 4755121930) ALYSSA (test code = ALYSSA) Association of [...] tests). Lab Interpretation Abnormal (test code = 66528-0) [facility] WITH [id number] 10:01:27 Test Item Value Reference Range Interpretation [...] RDW-SD (test code = 49.9 fL 38.5-51.6 58008-9) RDW-CV (test code = 14.1 % 12.1-15.4 788-0) PLT (test code = See_Comment [Automated 777-3) message] The sy stem which generated this result transmitted reference range : 150 - 328 10*3/ ?L. The reference r corey was not used to interpret this result as normal/abnormal . MPV (test code = 10.1 fL 9.8-13 26489-4) NRBC/100 WBC (test See_Comment [Automat ed code = 7345511879) message] The system which generated this result transmitted reference range : 0.0 - 10.0 /100 WBCs. The refer ence range was not u sed to interpret th is result as normal/abnormal . NRBC x10^3 (test code See_Comment [Auto mated = 9273681100) message] The s ystem which generated this result transmitted reference range : 10*3/?L. The reference range was not used to interpret this result as normal/abnormal . GRAN MAT (NEUT) % 66.3 % (test code = 770-8) IMM GRAN % (test code 0.40 % = 3264157319) LYMPH % (test code = 20.7 % 736-9) MONO % (test code = 8.4 % 5905-5) EOS % (test code = 3.5 % 713-8) BASO % (test code = 0.7 % 706-2) GRAN MAT x10^3(ANC) 5.08 10*3/uL 1.99-6.95 (test code = 6075132865) IMM GRAN x10^3 (test 0.03 10*3/uL 0-0.06 code = 0946580855) LYMPH x10^3 (test code 1.58 10*3/uL 1.09-3.23 = 731-0) MONO x10^3 (test code 0.64 10*3/uL 0.36-1.02 = 742-7) EOS x10^3 (test code = 0.27 10*3/uL 0.06-0.53 711-2) BASO x10^3 (test code 0.05 10*3/uL 0.01-0.09 = 704-7) Lab Interpretation Abnormal (test code = 81703-8) [facility] 01:58:35 Test Item Value Reference Range Interpretation Comments POCT GLU (test code = 9439039463) 119 mg/dL 70-110 H Lab Interpretation (test code = Abnormal 82964-4) [facility] 18:49:03 Test Item Value Reference Range Interpretation Comments Height (test code = in 0457448951) Weight (test code = lbs 5874407787) Systolic BP (test code = mmHg 6596518106) Diastolic BP (test code mmHg = 9372474572) Heart Rate (test code = bpm 2406785781) BSA (test code = 1.73 m2 2254393922) LVIDD (test code = 5.60 cm 3895142352) IVS (test code = 0.83 cm 9842305426) Interventricular Septum 0.83 cm Diastolic Thickness by 2D (test code = 6413970) LVPWD (test code = 0.83 cm 1812035582) PW (test code = 0.83 cm 0.6-1.9 7389065882) EF(Teich) (test code = 14.30 % 4231699880) LVIDS (test code = 5.20 cm 3164531259) FS (test code = 7 % 4829199913) EF - 2D (test code = 14.30 % 71635793) Radiology Study observation (narrative) (test code = 67049-9) ALYSSA (test code = ALYSSA) Formatting of [...] Interpretation Comments POCT GLU (test code = 8585507489) 177 mg/dL 70-110 H Lab Interpretation (test code = Abnormal 26279-3) [facility] [id number] 14:30:25 Test Item Value Reference Range Interpretation Comments NT-proBNP (test code 3520 pg/mL See_Comment H [Autom ated = 4560652684) message] The system which generated this result transmitted reference range : <=450. The reference range was not used to interpret this result as normal/abnormal . ALYSSA (test code = ALYSSA) Biotin has been reported to cause a negative bias, interpret results relative to patient's use of biotin. Lab Interpretation Abnormal (test code = 93286-9) [facility] GLUCOSE (AUTOMATED)2022-06-05 13:06:52 Test Item Value Reference Range Interpretation Comments POCT GLU (test code = 3509237015) 196 mg/dL 70-110 H Lab Interpretation (test code = Abnormal 18147-7) [facility] GLUCOSE (AUTOMATED)2022-06-05 01:19:44 Test Item Value Reference Range Interpretation Comments POCT GLU (test code = 5174443860) 160 mg/dL 70-110 H Lab Interpretation (test code = Abnormal 85994-4) [facility] GLUCOSE (AUTOMATED)2022-06-04 21:53:21 Test Item Value Reference Range Interpretation Comments POCT GLU (test code = 4475863055) 179 mg/dL 70-110 H Lab Interpretation (test code = Abnormal 86484-5) [facility] GLUCOSE (AUTOMATED)2022-06-04 17:18:37 Test Item Value Reference Range Interpretation Comments POCT GLU (test code = 9366122095) 208 mg/dL 70-110 H Lab Interpretation (test code = Abnormal 70422-9) [facility] [id number] 16:08:53 Test Item Value Reference Interpretation Comments Range TROPONIN I (test 0.061 ng/mL See_Comment H [Automated code = 8516407689) message] The system which generated this result [...] biotin. Lab Interpretation Abnormal (test code = 36775-6) [facility] METABOLIC PANEL (NA, K, CL, CO2, GLUCOSE, BUN, CREATININE, CA)2022-06-04 15:57:07 Test Item Value Reference Range Interpretation Comments NA (test code = 139 mmol/L 135-145 4817714082) K (test code = 3.6 mmol/L 3.5-5 6406049716) CL (test code = 100 mmol/L 98-108 9107554434) CO2 TOTAL (test code = 30 mmol/L 23-31 8774657723) AGAP (test code = 2-16 7969300165) BUN (test code = 27 mg/dL 7-23 H 8801766479) GLUCOSE (test code = 159 mg/dL 70-110 H 8307709645) CREATININE (test code = 0.94 mg/dL 0.6-1.25 9782233887) CALCIUM (test code = 9.3 mg/dL 8.6-10.6 5552587353) eGFR (test code = mL/min/1.73m2 6210375277) ALYSSA (test code = ALYSSA) Association of [...] tests). Lab Interpretation Abnormal (test code = 62930-0) [facility] [id number] 15:25:43 Test Item Value Reference Interpretation Comments Range TROPONIN I (test 0.085 ng/mL See_Comment H [Automated code = 0754030784) message] The system which generated this result [...] biotin. Lab Interpretation Abnormal (test code = 31826-1) [facility] GLUCOSE (AUTOMATED)2022-06-04 13:13:51 Test Item Value Reference Range Interpretation Comments POCT GLU (test code = 7637958366) 196 mg/dL 70-110 H Lab Interpretation (test code = Abnormal 03446-4) [facility] [id number] 03:16:42 Test Item Value Reference Interpretation Comments Range TROPONIN I (test 0.077 ng/mL See_Comment H [Automated code = 9107045066) message] The system which generated this result [...] biotin. Lab Interpretation Abnormal (test code = 79708-5) [facility] GLUCOSE (AUTOMATED)2022-06-03 23:26:30 Test Item Value Reference Range Interpretation Comments POCT GLU (test code = 7675553540) 185 mg/dL 70-110 H Lab Interpretation (test code = Abnormal 84941-2) [facility] Paso[facility] Screen - ONCE [id number] 16:49:21 Test Item Value Reference Range Interpretation Comments ABO & RH (test code A Positive Performe d at [facility] = 20) Laboratory Serv [facility] [place], [place] [address]Toll Free: [phone] A No. [id number] IAT (test code = Negative Performed a t [facility] 1185) Laboratory Serv [facility] [place], [place] [address]Toll Free: [phone] A No. [id number] [facility] PasoProthrombin Time / [id number] 16:10:07 Test Item Value Reference Range Interpretation [...] tions. Lab Interpretation (test Normal code = 73017-5) [facility] Paso[facility] [id number] 15:31:19 Test Item Value Reference Interpretation Comments Range TROPONIN I (test 0.093 ng/mL See_Comment H [Automated code = 2282984284) message] The system which generated this result [...] biotin. Lab Interpretation Abnormal (test code = 52626-4) [facility] [id number] 15:28:02 Test Item Value Reference Range Interpretation Comments NT-proBNP (test code 9060 pg/mL See_Comment H [Autom ated = 9238490063) message] The system which generated this result transmitted reference range : <=450. The reference range was not used to interpret this result as normal/abnormal . ALYSSA (test code = ALYSSA) Biotin has been reported to cause a negative bias, interpret results relative to patient's use of biotin. Lab Interpretation Abnormal (test code = 87917-0) [facility]2022-[facility]-19 15:20:38 Test Item Value Reference Range Interpretation Comments MAGNESIUM (test code = 3654051864) 1.8 mg/dL 1.7-2.4 Lab Interpretation (test code = Normal 84566-6) [facility] PasoCOMP[facility] METABOLIC PANEL (14953)2022-06-03 15:20:18 Test Item Value Reference Range Interpretation Comments NA (test code = 137 mmol/L 135-145 4645679150) K (test code = 3.7 mmol/L 3.5-5 1485997692) CL (test code = 99 mmol/L 98-108 3598673603) CO2 TOTAL (test code = 24 mmol/L 23-31 8425769482) AGAP (test code = 2-16 4991835605) BUN (test code = 31 mg/dL 7-23 H 5593370833) GLUCOSE (test code = 224 mg/dL 70-110 H 0886430923) CREATININE (test code = 1.30 mg/dL 0.6-1.25 H 7783855119) TOTAL BILI (test code = 1.4 mg/dL 0.1-1.1 H 8474481456) CALCIUM (test code = 9.2 mg/dL 8.6-10.6 8308524573) T PROTEIN (test code = 6.3 g/dL 6.3-8.2 5429624481) ALBUMIN (test code = 3.8 g/dL 3.5-5 6803201949) ALK PHOS (test code = 98 U/L 34-122 5261272700) ALTv (test code = 18 U/L 5-50 1742-6) AST(SGOT) (test code = 30 U/L 13-40 3360138367) eGFR (test code = mL/min/1.73m2 0464869953) ALYSSA (test code = ALYSSA) Association of [...] tests). Lab Interpretation Abnormal (test code = 59119-1) [facility] PasoLIPASE2022-07-19 15:20:18 Test Item Value Reference Range Interpretation Comments LIPASE (test code = 1641060460) 343 U/L 0-220 H Lab Interpretation (test code = Abnormal 05249-1) [facility] PasoCB WITH [id number] 15:10:01 Test Item Value Reference Range Interpretation [...] RDW-SD (test code = 45.3 fL 38.5-51.6 97993-9) RDW-CV (test code = 13.5 % 12.1-15.4 788-0) PLT (test code = See_Comment [Automated 777-3) message] The sy stem which generated this result transmitted reference range : 150 - 328 10*3/ ?L. The reference r corey was not used to interpret this result as normal/abnormal . MPV (test code = 10.0 fL 9.8-13 09517-8) NRBC/100 WBC (test See_Comment [Automat ed code = 8878298844) message] The system which generated this result transmitted reference range : 0.0 - 10.0 /100 WBCs. The refer ence range was not u sed to interpret th is result as normal/abnormal . NRBC x10^3 (test code See_Comment [Auto mated = 8232364480) message] The s ystem which generated this result transmitted reference range : 10*3/?L. The reference range was not used to interpret this result as normal/abnormal . GRAN MAT (NEUT) % 77.8 % (test code = 770-8) IMM GRAN % (test code 0.50 % = 3396928819) LYMPH % (test code = 11.7 % 736-9) MONO % (test code = 9.4 % 5905-5) EOS % (test code = 0.2 % 713-8) BASO % (test code = 0.4 % 706-2) GRAN MAT x10^3(ANC) 6.30 10*3/uL 1.99-6.95 (test code = 0213617099) IMM GRAN x10^3 (test 0.04 10*3/uL 0-0.06 code = 4674741235) LYMPH x10^3 (test code 0.95 10*3/uL 1.09-3.23 L = 731-0) MONO x10^3 (test code 0.76 10*3/uL 0.36-1.02 = 742-7) EOS x10^3 (test code = 0.06-0.53 L 711-2) BASO x10^3 (test code 0.03 10*3/uL 0.01-0.09 = 704-7) Lab Interpretation Abnormal (test code = 41756-9) [facility] METABOLIC PANEL (NA, K, CL, CO2, GLUCOSE, BUN, CREATININE, CA)2022-05-31 11:07:06 Test Item Value Reference Range Interpretation Comments NA (test code = 133 mmol/L 135-145 L 0990291602) K (test code = 3.3 mmol/L 3.5-5 L 1797141208) CL (test code = 91 mmol/L 98-108 L 1044553527) CO2 TOTAL (test code = 33 mmol/L 23-31 H 7575472696) AGAP (test code = 2-16 1088080528) BUN (test code = 57 mg/dL 7-23 H 8479324830) GLUCOSE (test code = 285 mg/dL 70-110 H 2319404587) CREATININE (test code = 1.56 mg/dL 0.6-1.25 H 8601411166) CALCIUM (test code = 9.2 mg/dL 8.6-10.6 4645423285) eGFR (test code = mL/min/1.73m2 7448728666) ALYSSA (test code = ALYSSA) Association of [...] tests). Lab Interpretation Abnormal (test code = 07631-3) [facility] METABOLIC PANEL (NA, K, CL, CO2, GLUCOSE, BUN, CREATININE, CA)2022-05-30 09:08:14 Test Item Value Reference Range Interpretation Comments NA (test code = 132 mmol/L 135-145 L 3527583926) K (test code = 3.5 mmol/L 3.5-5 Slight 1923677793) hemolysis CL (test code = 90 mmol/L 98-108 L 8169288569) CO2 TOTAL (test code 33 mmol/L 23-31 H = 4770792324) AGAP (test code = 2-16 5722892395) BUN (test code = 37 mg/dL 7-23 H Slight 7709739851) hemolysis GLUCOSE (test code = 167 mg/dL 70-110 H 2070752756) CREATININE (test code 1.22 mg/dL 0.6-1.25 = 1069334120) CALCIUM (test code = 9.4 mg/dL 8.6-10.6 8899208754) eGFR (test code = mL/min/1.73m2 7863642607) ALYSSA (test code = ALYSSA) Association of [...] tests). Lab Interpretation Abnormal (test code = 85356-4) [facility] [id number] 10:06:48 Test Item Value Reference Range Interpretation Comments NT-proBNP (test code 2940 pg/mL See_Comment H [Autom ated = 9150294464) message] The system which generated this result transmitted reference range : <=450. The reference range was not used to interpret this result as normal/abnormal . ALYSSA (test code = ALYSSA) Biotin has been reported to cause a negative bias, interpret results relative to patient's use of biotin. Lab Interpretation Abnormal (test code = 57521-9) [facility] METABOLIC PANEL (NA, K, CL, CO2, GLUCOSE, BUN, CREATININE, CA)2022-05-29 09:58:43 Test Item Value Reference Range Interpretation Comments NA (test code = 133 mmol/L 135-145 L 4251932431) K (test code = 3.5 mmol/L 3.5-5 9537402248) CL (test code = 93 mmol/L 98-108 L 6433245186) CO2 TOTAL (test code = 30 mmol/L 23-31 2507827931) AGAP (test code = 2-16 5884594949) BUN (test code = 31 mg/dL 7-23 H 6563515868) GLUCOSE (test code = 167 mg/dL 70-110 H 7252659475) CREATININE (test code = 1.24 mg/dL 0.6-1.25 7500428629) CALCIUM (test code = 9.4 mg/dL 8.6-10.6 0656887675) eGFR (test code = mL/min/1.73m2 7321256817) ALYSSA (test code = ALYSSA) Association of [...] tests). Lab Interpretation Abnormal (test code = 19678-2) [facility] WITH [id number] 08:08:05 Test Item Value Reference Range Interpretation [...] RDW-SD (test code = 47.3 fL 38.5-51.6 06226-8) RDW-CV (test code = 14.0 % 12.1-15.4 788-0) PLT (test code = See_Comment [Automated 777-3) message] The sy stem which generated this result transmitted reference range : 150 - 328 10*3/ ?L. The reference r corey was not used to interpret this result as normal/abnormal . MPV (test code = 9.6 fL 9.8-13 L 51543-6) NRBC/100 WBC (test See_Comment [Automat ed code = 5991137986) message] The system which generated this result transmitted reference range : 0.0 - 10.0 /100 WBCs. The refer ence range was not u sed to interpret th is result as normal/abnormal . NRBC x10^3 (test code See_Comment [Auto mated = 7590692967) message] The s ystem which generated this result transmitted reference range : 10*3/?L. The reference range was not used to interpret this result as normal/abnormal . GRAN MAT (NEUT) % 65.6 % (test code = 770-8) IMM GRAN % (test code 0.40 % = 3765823256) LYMPH % (test code = 20.0 % 736-9) MONO % (test code = 10.4 % 5905-5) EOS % (test code = 3.1 % 713-8) BASO % (test code = 0.5 % 706-2) GRAN MAT x10^3(ANC) 3.58 10*3/uL 1.99-6.95 (test code = 1732331363) IMM GRAN x10^3 (test 0-0.06 code = 1637372939) LYMPH x10^3 (test code 1.09 10*3/uL 1.09-3.23 = 731-0) MONO x10^3 (test code 0.57 10*3/uL 0.36-1.02 = 742-7) EOS x10^3 (test code = 0.17 10*3/uL 0.06-0.53 711-2) BASO x10^3 (test code 0.03 10*3/uL 0.01-0.09 = 704-7) Lab Interpretation Abnormal (test code = 10163-6) [facility] [id number] 10:55:38 Test Item Value Reference Range Interpretation Comments NT-proBNP (test code 3040 pg/mL See_Comment H [Autom ated = 3646456474) message] The system which generated this result transmitted reference range : <=450. The reference range was not used to interpret this result as normal/abnormal . ALYSSA (test code = ALYSSA) Biotin has been reported to cause a negative bias, interpret results relative to patient's use of biotin. Lab Interpretation Abnormal (test code = 80439-6) [facility] METABOLIC PANEL (NA, K, CL, CO2, GLUCOSE, BUN, CREATININE, CA)2022-05-27 10:49:39 Test Item Value Reference Range Interpretation Comments NA (test code = 134 mmol/L 135-145 L 3904817428) K (test code = 4.1 mmol/L 3.5-5 3586546091) CL (test code = 96 mmol/L 98-108 L 8720181445) CO2 TOTAL (test code = 31 mmol/L 23-31 4975947028) AGAP (test code = 2-16 7159584125) BUN (test code = 28 mg/dL 7-23 H 5170763453) GLUCOSE (test code = 216 mg/dL 70-110 H 2103649401) CREATININE (test code = 1.07 mg/dL 0.6-1.25 5543500343) CALCIUM (test code = 8.8 mg/dL 8.6-10.6 6056876692) eGFR (test code = mL/min/1.73m2 1050461766) ALYSSA (test code = ALYSSA) Association of [...] tests). Lab Interpretation Abnormal (test code = 39686-5) [facility]an[facility] ([facility]E)2022-05-27 00:13:45 Test Item Value Reference Range Interpretation Comments Height (test code = in 8484184937) Weight (test code = lbs 9526288894) Systolic BP (test code = mmHg 9576327872) Diastolic BP (test code mmHg = 0495463345) Heart Rate (test code = bpm 4636629919) LVOT stroke volume (test 31.80 cm3 code = 6667999432) EF(Teich) (test code = 18.40 % 0647525634) LVIDD (test code = 6.30 cm 1740517787) LVIDS (test code = 5.80 cm 4768713943) IVS (test code = 0.75 cm 1518656311) LVPWD (test code = 0.94 cm 4283687725) LVOT diameter (test code 1.95 cm = 0307198112) FS (test code = 9 % 5781650760) MV Peak E Nestor (test code 121.4 cm/s = 0001822645) E wave decelartion time 0.09 s (test code = 0735909829) MV E/e' septal (test 5.0 cm/s code = 2747532852) LA Volume Index (BP) 42.0 mL/m2 (test code = 3578897156) LA volume (BP) (test 74.6 mL code = 8511564570) LVOT peak nestor (test code 79.9 cm/s = 8316002990) LVOT mn grad (test code mmHg = 0128510194) BSA (test code = 1.78 m2 3427042094) LA size (test code = 2.6 cm 7781580914) LAV(MOD-sp2) (test code 82.10 mL = 1264534981) LAV(MOD-sp4) (test code 60.20 mL = 2882111970) Tapse (test code = 2.08 cm 7565202284) AV LVOT peak gradient mmHg (test code = 4029396158) LVOT peak VTI (test code 10.6 cm = 0929944266) LV V1 mean (test code = 48.50 cm/s 1907214366) MV Prop V (test code = 44.70 cm/s 0672635429) Ao root annulus (test 3.5 cm code = 0062920442) Ao root diam (test code 3.50 cm = 9551125284) Aortic root (test code = 3.5 cm 6102225207) PW (test code = 0.94 cm 0.6-1.1 2190658180) EF - 2D (test code = 18.40 % 78021991) Interventricular Septum 0.75 cm Diastolic Thickness by 2D (test code = 7265067) MV Peak A Nestor (test code 26.3 cm/s = 0797435406) E/A ratio (test code = ratio 3401003965) Aortic valve mean 113.4 cm/s velocity (test code = 7946530737) Ao peak nestor (test code = 150.5 cm/s 9163864670) Ao VTI (test code = 21.6 cm 0429704246) AV area by cont VTI 1.5 cm2 (test code = 9647515632) AV area peak nestor (test 1.6 cm2 code = 6032130629) Ao max PG (test code = 9.10 mm[Hg] 7855304130) AV peak gradient (test mmHg code = 3220887456) AV valve area (test code 1.48 cm2 = 0562935530) AV mean gradient (test mmHg code = 5713731823) Radiology Study observation (narrative) (test code = 68420-3) ALYSSA (test code = ALYSSA) Formatting of [...] mL of Lumason ultrasound enhancing agent used. [facility] Paso[facility]-[id number] 20:13:11 Test Item Value Reference Interpretation Comments Range D-DIMER (test code = See_Comment H [Autom ated 4982324298) message] The system which generated this result [...] diagnosis. Lab Interpretation Abnormal (test code = 30076-3) [id number] 14:26:05 Test Item Value Reference Interpretation Comments Range TROPONIN I (test 0.069 ng/mL See_Comment H [Automated code = 9931552360) message] The system which generated this result [...] biotin. Lab Interpretation Abnormal (test code = 44722-3) [facility] (NA, K, CL, CO2, GLUCOSE, BUN, CREATININE, CA)2022-05-25 14:14:22 Test Item Value Reference Range Interpretation Comments NA (test code = 136 mmol/L 135-145 1330568745) K (test code = 3.8 mmol/L 3.5-5 3753273197) CL (test code = 102 mmol/L 98-108 5594195784) CO2 TOTAL (test code 26 mmol/L 23-31 = 9931378561) AGAP (test code = 2-16 5152403258) BUN (test code = 19 mg/dL 7-23 3574112046) GLUCOSE (test code = 94 mg/dL 70-110 3609140371) CREATININE (test code 0.97 mg/dL 0.6-1.25 = 4382157936) CALCIUM (test code = 8.8 mg/dL 8.6-10.6 4175624322) eGFR (test code = mL/min/1.73m2 5733934796) ALYSSA (test code = ALYSSA) Association of [...] or urine or abnormalities in imaging tests). [facility] [id number] 18:14:14 Test Item Value Reference Range Interpretation Comments NT-proBNP (test code 7300 pg/mL See_Comment H [Autom ated = 2773235436) message] The system which generated this result transmitted reference range : <=450. The reference range was not used to interpret this result as normal/abnormal . ALYSSA (test code = ALYSSA) Biotin has been reported to cause a negative bias, interpret results relative to patient's use of biotin. Lab Interpretation Abnormal (test code = 00322-0) [facility]2022-05-24 16:04:15 Test Item Value Reference Range Interpretation Comments POCT GLU (test code = 5404668564) 107 mg/dL 70-110 Lab Interpretation (test code = Normal 13742-3) [facility] Paso[facility] METABOLIC PANEL (54192)2022-05-24 05:16:06 Test Item Value Reference Range Interpretation Comments NA (test code = 134 mmol/L 135-145 L 0078685384) K (test code = 3.8 mmol/L 3.5-5 7958170566) CL (test code = 100 mmol/L 98-108 3437373689) CO2 TOTAL (test code = 23 mmol/L 23-31 7683504767) AGAP (test code = 2-16 7145142855) BUN (test code = 18 mg/dL 7-23 6058338184) GLUCOSE (test code = 179 mg/dL 70-110 H 4985228727) CREATININE (test code = 1.07 mg/dL 0.6-1.25 6444860082) TOTAL BILI (test code = 1.4 mg/dL 0.1-1.1 H 2722406382) CALCIUM (test code = 9.1 mg/dL 8.6-10.6 0460283207) T PROTEIN (test code = 6.0 g/dL 6.3-8.2 L 4813559127) ALBUMIN (test code = 3.6 g/dL 3.5-5 7861178694) ALK PHOS (test code = 98 U/L 34-122 2235833938) ALTv (test code = 14 U/L 5-50 1742-6) AST(SGOT) (test code = 23 U/L 13-40 9407570207) eGFR (test code = mL/min/1.73m2 1695644499) ALYSSA (test code = ALYSSA) Association of [...] tests). Lab Interpretation Abnormal (test code = 24321-8) [facility] PasoTR[facility] [id number] 04:57:41 Test Item Value Reference Interpretation Comments Range TROPONIN I (test 0.086 ng/mL See_Comment H [Automated code = 0063877417) message] The system which generated this result [...] biotin. Lab Interpretation Abnormal (test code = 96513-9) [facility] WITH [id number] 04:40:23 Test Item Value Reference Range Interpretation [...] RDW-SD (test code = 48.0 fL 38.5-51.6 03232-7) RDW-CV (test code = 14.1 % 12.1-15.4 788-0) PLT (test code = See_Comment [Automated 777-3) message] The sy stem which generated this result transmitted reference range : 150 - 328 10*3/ ?L. The reference r corey was not used to interpret this result as normal/abnormal . MPV (test code = 9.8 fL 9.8-13 71887-3) NRBC/100 WBC (test See_Comment [Automat ed code = 4265420732) message] The system which generated this result transmitted reference range : 0.0 - 10.0 /100 WBCs. The refer ence range was not u sed to interpret th is result as normal/abnormal . NRBC x10^3 (test code See_Comment [Auto mated = 2732902293) message] The s ystem which generated this result transmitted reference range : 10*3/?L. The reference range was not used to interpret this result as normal/abnormal . GRAN MAT (NEUT) % 77.1 % (test code = 770-8) IMM GRAN % (test code 0.30 % = 6024054712) LYMPH % (test code = 11.4 % 736-9) MONO % (test code = 9.5 % 5905-5) EOS % (test code = 1.4 % 713-8) BASO % (test code = 0.3 % 706-2) GRAN MAT x10^3(ANC) 5.06 10*3/uL 1.99-6.95 (test code = 9037414651) IMM GRAN x10^3 (test 0-0.06 code = 1525728648) LYMPH x10^3 (test code 0.75 10*3/uL 1.09-3.23 L = 731-0) MONO x10^3 (test code 0.62 10*3/uL 0.36-1.02 = 742-7) EOS x10^3 (test code = 0.09 10*3/uL 0.06-0.53 711-2) BASO x10^3 (test code 0.01-0.09 = 704-7) Lab Interpretation Abnormal (test code = 06344-2) [facility]2022-04-25 09:38:00 Test Item Value Reference Range Interpretation Comments Glucose Lvl (test code = Glucose Lvl) 198 70-99 [place] 069722-04-25 09:38:00 Test Item Value Reference Range Interpretation Comments BUN (test code = BUN) 37 7-22 [place] 069722-04-25 09:38:00 Test Item Value Reference Range Interpretation Comments Creatinine Lvl (test code = Creatinine 1.15 0.50-1.40 Lvl) [place] 069722-04-25 09:38:00 Test Item Value Reference Range Interpretation Comments Sodium Lvl (test code = Sodium Lvl) 133 135-145 [place] 069722-04-25 09:38:00 Test Item Value Reference Range Interpretation Comments Potassium Lvl (test code = Potassium 3.8 3.5-5.1 Lvl) [place] 069722-04-25 09:38:00 Test Item Value Reference Range Interpretation Comments Chloride Lvl (test code = Chloride Lvl) 98 95-109 [place] 069722-04-25 09:38:00 Test Item Value Reference Range Interpretation Comments CO2 (test code = CO2) 25 24-32 [place] 069722-04-25 09:38:00 Test Item Value Reference Range Interpretation Comments AGAP (test code = AGAP) 13.8 10.0-20.0 [place] 069722-04-25 09:38:00 Test Item Value Reference Range Interpretation Comments Calcium Lvl (test code = Calcium Lvl) 9.9 8.5-10.5 [place] 069722-04-25 09:38:00 Test Item Value Reference Range Interpretation Comments eGFR (test code = eGFR) 59 [facility] [id number] 09:38:00 Test Item Value Reference Range Interpretation Comments Phosphorus (test code = Phosphorus) 4.3 2.5-4.5 [facility] [id number] 09:38:00 Test Item Value Reference Range Interpretation Comments Magnesium Lvl (test code = Magnesium 2.4 1.8-2.4 Lvl) [place] [address]-04-25 09:38:00 Test Item Value Reference Range Interpretation Comments WBC (test code = WBC) 5.1 3.7-10.4 [place] [id number] 09:38:00 Test Item Value Reference Range Interpretation Comments RBC (test code = RBC) 4.61 4.70-6.10 [place] [address]-04-25 09:38:00 Test Item Value Reference Range Interpretation Comments Hgb (test code = Hgb) 14.9 14.0-18.0 [place] [id number] 09:38:00 Test Item Value Reference Range Interpretation Comments Hct (test code = Hct) 43.0 42.0-54.0 [place] 64294-04-25 09:38:00 Test Item Value Reference Range Interpretation Comments MCV (test code = MCV) 93.3 80.0-94.0 [place] [address]-04-25 09:38:00 Test Item Value Reference Range Interpretation Comments MCH (test code = MCH) 32.3 pg 27.0-31.0 [place] [address]-04-25 09:38:00 Test Item Value Reference Range Interpretation Comments MCHC (test code = MCHC) 34.6 32.0-36.0 [place] [address]-04-25 09:38:00 Test Item Value Reference Range Interpretation Comments RDW (test code = RDW) 13.8 11.5-14.5 [place] 504842-04-25 09:38:00 Test Item Value Reference Range Interpretation Comments Platelet (test code = Platelet) 210 133-450 [place] 504842-04-25 09:38:00 Test Item Value Reference Range Interpretation Comments MPV (test code = MPV) 8.2 7.4-10.4 [place] [address]-04-25 09:38:00 Test Item Value Reference Range Interpretation Comments Segs (test code = Segs) 50.3 45.0-75.0 [place] [address]-04-25 09:38:00 Test Item Value Reference Range Interpretation Comments Lymphocytes (test code = Lymphocytes) 32.2 20.0-40.0 [place] [address]-04-25 09:38:00 Test Item Value Reference Range Interpretation Comments Monocytes (test code = Monocytes) 13.4 2.0-12.0 [place] [address]-04-25 09:38:00 Test Item Value Reference Range Interpretation Comments Eosinophils (test code = 3.0 See_Comment [A utomated message] The Eosinophils) system which ge nerated this result tra nsmitted reference range : <=4.0. The reference r corye was not used to int erpret this result as normal/abnormal . [place] [address]-04-25 09:38:00 Test Item Value Reference Range Interpretation Comments Basophils (test code = 1.1 See_Comment [Aut omated message] The Basophils) system which ge nerated this result tra nsmitted reference range : <=1.0. The reference r corey was not used to int erpret this result as normal/abnormal . [place] [address]-04-25 09:38:00 Test Item Value Reference Range Interpretation Comments Neutrophils # (test code = Neutrophils 2.5 1.5-8.1 #) [place] 504842-04-25 09:38:00 Test Item Value Reference Range Interpretation Comments Lymphocytes # (test code = Lymphocytes 1.6 1.0-5.5 #) [place] [address]-04-25 09:38:00 Test Item Value Reference Range Interpretation Comments Monocytes # (test code 0.7 See_Comment [Aut omated message] The = Monocytes #) system which generated this result tra nsmitted reference range : <=0.8. The reference r corey was not used to int erpret this result as normal/abnormal . [place] [address]-04-25 09:38:00 Test Item Value Reference Range Interpretation Comments Eosinophils # (test code 0.2 See_Comment [A utomated message] The = Eosinophils #) system whic h generated this result tra nsmitted reference range : <=0.5. The reference r corey was not used to int erpret this result as normal/abnormal . [facility] Test Item Value Reference Range Interpretation Comments Basophils # (test code 0.1 See_Comment [Aut omated message] The = Basophils #) system which generated this result tra nsmitted reference range : <=0.2. The reference r corey was not used to int erpret this result as normal/abnormal . [facility]2022-04-25 09:38:00 Test Item Value Reference Range Interpretation Comments Ca Ion WB (test code = Ca Ion WB) 1.17 1.05-1.25 [place] 489142-04-25 09:38:00 Test Item Value Reference Range Interpretation Comments Ca Ion at pH 7.4 WB (test code = Ca Ion 1.12 1.05-1.25 at pH 7.4 WB) [facility] [id number] 09:38:00 Test Item Value Reference Range Interpretation Comments Chloride Lvl (test code = Chloride Lvl) 98 95-109 [facility] [id number] 09:38:00 Test Item Value Reference Range Interpretation Comments CO2 (test code = CO2) 25 24-32 [facility] [id number] 09:38:00 Test Item Value Reference Range Interpretation Comments AGAP (test code = AGAP) 13.8 10.0-20.0 [facility] [id number] 09:38:00 Test Item Value Reference Range Interpretation Comments Calcium Lvl (test code = Calcium Lvl) 9.9 8.5-10.5 [facility] [id number] 09:38:00 Test Item Value Reference Range Interpretation Comments eGFR (test code = eGFR) 59 [facility] [id number] 09:38:00 Test Item Value Reference Range Interpretation Comments Phosphorus (test code = Phosphorus) 4.3 2.5-4.5 [facility] [id number] 09:38:00 Test Item Value Reference Range Interpretation Comments Magnesium Lvl (test code = Magnesium 2.4 1.8-2.4 Lvl) [place] 504842-04-25 09:38:00 Test Item Value Reference Range Interpretation Comments WBC (test code = WBC) 5.1 3.7-10.4 [place] [address]-04-25 09:38:00 Test Item Value Reference Range Interpretation Comments RBC (test code = RBC) 4.61 4.70-6.10 [place] 504842-04-25 09:38:00 Test Item Value Reference Range Interpretation Comments Hgb (test code = Hgb) 14.9 14.0-18.0 [place] [address]-04-25 09:38:00 Test Item Value Reference Range Interpretation Comments Hct (test code = Hct) 43.0 42.0-54.0 [place] [address]-04-25 09:38:00 Test Item Value Reference Range Interpretation Comments MCV (test code = MCV) 93.3 80.0-94.0 [place] [address]-04-25 09:38:00 Test Item Value Reference Range Interpretation Comments MCH (test code = MCH) 32.3 pg 27.0-31.0 [place] [address]-04-25 09:38:00 Test Item Value Reference Range Interpretation Comments MCHC (test code = MCHC) 34.6 32.0-36.0 [place] [address]-04-25 09:38:00 Test Item Value Reference Range Interpretation Comments RDW (test code = RDW) 13.8 11.5-14.5 [place] [address]-04-25 09:38:00 Test Item Value Reference Range Interpretation Comments Platelet (test code = Platelet) 210 133-450 [place] 504842-04-25 09:38:00 Test Item Value Reference Range Interpretation Comments MPV (test code = MPV) 8.2 7.4-10.4 [place] [address]-04-25 09:38:00 Test Item Value Reference Range Interpretation Comments Segs (test code = Segs) 50.3 45.0-75.0 [place] [address]-04-25 09:38:00 Test Item Value Reference Range Interpretation Comments Lymphocytes (test code = Lymphocytes) 32.2 20.0-40.0 [place] [address]-04-25 09:38:00 Test Item Value Reference Range Interpretation Comments Monocytes (test code = Monocytes) 13.4 2.0-12.0 [address]04-25 09:38:00 Test Item Value Reference Range Interpretation Comments Eosinophils (test code = 3.0 See_Comment [A utomated message] The Eosinophils) system which ge nerated this result tra nsmitted reference range : <=4.0. The reference r corey was not used to int erpret this result as normal/abnormal . [place] [address]-04-25 09:38:00 Test Item Value Reference Range Interpretation Comments Basophils (test code = 1.1 See_Comment [Aut omated message] The Basophils) system which ge nerated this result tra nsmitted reference range : <=1.0. The reference r corey was not used to int erpret this result as normal/abnormal . [address]04-25 09:38:00 Test Item Value Reference Range Interpretation Comments Neutrophils # (test code = Neutrophils 2.5 1.5-8.1 #) [place] [address]-04-25 09:38:00 Test Item Value Reference Range Interpretation Comments Lymphocytes # (test code = Lymphocytes 1.6 1.0-5.5 #) [place] [address]-04-25 09:38:00 Test Item Value Reference Range Interpretation Comments Monocytes # (test code 0.7 See_Comment [Aut omated message] The = Monocytes #) system which generated this result tra nsmitted reference range : <=0.8. The reference r corey was not used to int erpret this result as normal/abnormal . [place] [address]-04-25 09:38:00 Test Item Value Reference Range Interpretation Comments Eosinophils # (test code 0.2 See_Comment [A utomated message] The = Eosinophils #) system whic h generated this result tra nsmitted reference range : <=0.5. The reference r corey was not used to int erpret this result as normal/abnormal . [place] [address]-04-25 09:38:00 Test Item Value Reference Range Interpretation Comments Basophils # (test code 0.1 See_Comment [Aut omated message] The = Basophils #) system which generated this result tra nsmitted reference range : <=0.2. The reference r corey was not used to int erpret this result as normal/abnormal . [facility] Test Item Value Reference Range Interpretation Comments Ca Ion WB (test code = Ca Ion WB) 1.17 1.05-1.25 [facility] [id number] 09:38:00 Test Item Value Reference Range Interpretation Comments Ca Ion at pH 7.4 WB (test code = Ca Ion 1.12 1.05-1.25 at pH 7.4 WB) [facility]2022-04-25 09:38:00 Test Item Value Reference Range Interpretation Comments Glucose Lvl (test code = Glucose Lvl) 198 70-99 [facility]2022-04-25 09:38:00 Test Item Value Reference Range Interpretation Comments BUN (test code = BUN) 37 7 [place] 069722-04-25 09:38:00 Test Item Value Reference Range Interpretation Comments Creatinine Lvl (test code = Creatinine 1.15 0.50-1.40 Lvl) [facility]2022-04-25 09:38:00 Test Item Value Reference Range Interpretation Comments Sodium Lvl (test code = Sodium Lvl) 133 135-145 [facility]2022-04-25 09:38:00 Test Item Value Reference Range Interpretation Comments Potassium Lvl (test code = Potassium 3.8 3.5-5.1 Lvl) [facility]2022-04-24 10:17:00 Test Item Value Reference Range Interpretation Comments Phosphorus (test code = Phosphorus) 4.0 2.5-4.5 [facility]2022-04-24 10:17:00 Test Item Value Reference Range Interpretation Comments Magnesium Lvl (test code = Magnesium 2.2 1.8-2.4 Lvl) [facility]2022-04-24 10:17:00 Test Item Value Reference Range Interpretation Comments Glucose Lvl (test code = Glucose Lvl) 134 70-99 [facility]2022-04-24 10:17:00 Test Item Value Reference Range Interpretation Comments BUN (test code = BUN) 35 7-22 [place] 069722-04-24 10:17:00 Test Item Value Reference Range Interpretation Comments Creatinine Lvl (test code = Creatinine 1.06 0.50-1.40 Lvl) [facility]iP[id number] 10:17:00 Test Item Value Reference Range Interpretation Comments Sodium Lvl (test code = Sodium Lvl) 134 135-145 [facility]2022-04-24 10:17:00 Test Item Value Reference Range Interpretation Comments Potassium Lvl (test code = Potassium 4.1 3.5-5.1 Lvl) [facility]2022-04-24 10:17:00 Test Item Value Reference Range Interpretation Comments Chloride Lvl (test code = Chloride Lvl) 99 95-109 [facility]2022-04-24 10:17:00 Test Item Value Reference Range Interpretation Comments CO2 (test code = CO2) 26 24-32 [facility]2022-04-24 10:17:00 Test Item Value Reference Range Interpretation Comments Calcium Lvl (test code = Calcium Lvl) 9.3 8.5-10.5 [facility]2022-04-24 10:17:00 Test Item Value Reference Range Interpretation Comments Phosphorus (test code = Phosphorus) 4.0 2.5-4.5 [facility]2022-04-24 10:17:00 Test Item Value Reference Range Interpretation Comments Magnesium Lvl (test code = Magnesium 2.2 1.8-2.4 Lvl) [facility]Fly TaxiPERSON [facility] [id number] 10:17:00 Test Item Value Reference Range Interpretation Comments Glucose Lvl (test code = Glucose Lvl) 134 70-99 [facility]2022-04-24 10:17:00 Test Item Value Reference Range Interpretation Comments BUN (test code = BUN) 35 7-22 [facility]2022-04-24 10:17:00 Test Item Value Reference Range Interpretation Comments Creatinine Lvl (test code = Creatinine 1.06 0.50-1.40 Lvl) [facility]Fly TaxiP[facility] HOSPITALDRJJH4162-55-14 10:17:00 Test Item Value Reference Range Interpretation Comments AGAP (test code = AGAP) 13.1 10.0-20.0 [facility]2022-04-24 10:17:00 Test Item Value Reference Range Interpretation Comments Sodium Lvl (test code = Sodium Lvl) 134 135-145 [place] 069722-04-24 10:17:00 Test Item Value Reference Range Interpretation Comments Potassium Lvl (test code = Potassium 4.1 3.5-5.1 Lvl) [facility]2022-04-24 10:17:00 Test Item Value Reference Range Interpretation Comments Chloride Lvl (test code = Chloride Lvl) 99 95-109 [facility]2022-04-24 10:17:00 Test Item Value Reference Range Interpretation Comments CO2 (test code = CO2) 26 24-32 [place] 069722-04-24 10:17:00 Test Item Value Reference Range Interpretation Comments Calcium Lvl (test code = Calcium Lvl) 9.3 8.5-10.5 [facility]2022-04-24 10:17:00 Test Item Value Reference Range Interpretation Comments AGAP (test code = AGAP) 13.1 10.0-20.0 [facility]2022-04-24 10:17:00 Test Item Value Reference Range Interpretation Comments eGFR (test code = eGFR) 65 [facility] CenterRhiugilQSWAAVZJHJ2718-97-50 10:17:00 Test Item Value Reference Range Interpretation Comments WBC (test code = WBC) 5.6 3.7-10.4 [place] 504842-04-24 10:17:00 Test Item Value Reference Range Interpretation Comments RBC (test code = RBC) 4.33 4.70-6.10 [place] 504842-04-24 10:17:00 Test Item Value Reference Range Interpretation Comments Hgb (test code = Hgb) 13.7 14.0-18.0 [place] [address]-04-24 10:17:00 Test Item Value Reference Range Interpretation Comments Hct (test code = Hct) 40.0 42.0-54.0 [place] [address]-04-24 10:17:00 Test Item Value Reference Range Interpretation Comments MCV (test code = MCV) 92.4 80.0-94.0 [place] [address]-04-24 10:17:00 Test Item Value Reference Range Interpretation Comments MCH (test code = MCH) 31.5 pg 27.0-31.0 [place] 504842-04-24 10:17:00 Test Item Value Reference Range Interpretation Comments MCHC (test code = MCHC) 34.1 32.0-36.0 [facility] CenterSeghkwgLFKUPPWMOU9229-54-19 10:17:00 Test Item Value Reference Range Interpretation Comments RDW (test code = RDW) 13.6 11.5-14.5 [facility] CenterYjzazigOEZVDDQPIY1903-74-25 10:17:00 Test Item Value Reference Range Interpretation Comments Platelet (test code = Platelet) 191 133-450 [facility] CenterMhfzivpXPFORTGLKN9512-18-80 10:17:00 Test Item Value Reference Range Interpretation Comments MPV (test code = MPV) 8.1 7.4-10.4 [place] 504842-04-24 10:17:00 Test Item Value Reference Range Interpretation Comments Segs (test code = Segs) 57.4 45.0-75.0 [place] 504842-04-24 10:17:00 Test Item Value Reference Range Interpretation Comments Lymphocytes (test code = Lymphocytes) 26.6 20.0-40.0 [facility] CenterEqkozepDCLBKJQFXR6373-32-10 10:17:00 Test Item Value Reference Range Interpretation Comments Monocytes (test code = Monocytes) 11.7 2.0-12.0 [facility]2022-04-24 10:17:00 Test Item Value Reference Range Interpretation Comments eGFR (test code = eGFR) 65 [facility] CenterKixgrnwLQLUMJJXBD8684-70-60 10:17:00 Test Item Value Reference Range Interpretation Comments Eosinophils (test code = 3.5 See_Comment [A utomated message] The Eosinophils) system which ge nerated this result tra nsmitted reference range : <=4.0. The reference r corey was not used to int erpret this result as normal/abnormal . [facility] CenterVpyaginWVUBSBZGOG5945-54-70 10:17:00 Test Item Value Reference Range Interpretation Comments Basophils (test code = 0.8 See_Comment [Aut omated message] The Basophils) system which ge nerated this result tra nsmitted reference range : <=1.0. The reference r corey was not used to int erpret this result as normal/abnormal . [place] 504842-04-24 10:17:00 Test Item Value Reference Range Interpretation Comments Neutrophils # (test code = Neutrophils 3.2 1.5-8.1 #) [facility] CenterBltbsmuGINGBMCIHD4575-02-18 10:17:00 Test Item Value Reference Range Interpretation Comments Lymphocytes # (test code = Lymphocytes 1.5 1.0-5.5 #) [facility] CenterYrukbzrOTKPMSLDUG9381-11-75 10:17:00 Test Item Value Reference Range Interpretation Comments Monocytes # (test code 0.7 See_Comment [Aut omated message] The = Monocytes #) system which generated this result tra nsmitted reference range : <=0.8. The reference r corey was not used to int erpret this result as normal/abnormal . [facility] CenterHaoggoaRMENOAMFPV5990-92-62 10:17:00 Test Item Value Reference Range Interpretation Comments Eosinophils # (test code 0.2 See_Comment [A utomated message] The = Eosinophils #) system whic h generated this result tra nsmitted reference range : <=0.5. The reference r corey was not used to int erpret this result as normal/abnormal . [facility]2022-04-24 10:17:00 Test Item Value Reference Range Interpretation Comments Ca Ion WB (test code = Ca Ion WB) 1.19 1.05-1.25 [facility]2022-04-24 10:17:00 Test Item Value Reference Range Interpretation Comments Ca Ion at pH 7.4 WB (test code = Ca Ion 1.19 1.05-1.25 at pH 7.4 WB) [facility] CenterErawpkpPLFDUQZHPN1922-03-56 10:17:00 Test Item Value Reference Range Interpretation Comments WBC (test code = WBC) 5.6 3.7-10.4 [facility] CenterYnzjtbvYBQDNUPFUC6626-29-75 10:17:00 Test Item Value Reference Range Interpretation Comments RBC (test code = RBC) 4.33 4.70-6.10 [place] 504842-04-24 10:17:00 Test Item Value Reference Range Interpretation Comments Hgb (test code = Hgb) 13.7 14.0-18.0 [place] 504842-04-24 10:17:00 Test Item Value Reference Range Interpretation Comments Hct (test code = Hct) 40.0 42.0-54.0 [facility] CenterJfcqjgkNTGNEJCNXS4097-40-98 10:17:00 Test Item Value Reference Range Interpretation Comments MCV (test code = MCV) 92.4 80.0-94.0 [place] 504842-04-24 10:17:00 Test Item Value Reference Range Interpretation Comments MCH (test code = MCH) 31.5 pg 27.0-31.0 [facility] CenterMwnzeioMQCYPGRNOQ5385-89-50 10:17:00 Test Item Value Reference Range Interpretation Comments MCHC (test code = MCHC) 34.1 32.0-36.0 [facility] CenterNpdupwmQODHYMHVGP9285-77-36 10:17:00 Test Item Value Reference Range Interpretation Comments RDW (test code = RDW) 13.6 11.5-14.5 [facility] CenterOhaqgjdTUAZSJPOZA0973-51-99 10:17:00 Test Item Value Reference Range Interpretation Comments Platelet (test code = Platelet) 191 133-450 [facility] CenterSjbdrpxNAGYHSZCBW3861-93-67 10:17:00 Test Item Value Reference Range Interpretation Comments MPV (test code = MPV) 8.1 7.4-10.4 [facility] CenterBjwjaiwQLHFXOHVVE6602-34-05 10:17:00 Test Item Value Reference Range Interpretation Comments Segs (test code = Segs) 57.4 45.0-75.0 [facility] CenterRvbiceqMILNMBCIMN5583-69-14 10:17:00 Test Item Value Reference Range Interpretation Comments Lymphocytes (test code = Lymphocytes) 26.6 20.0-40.0 [facility] CenterBsvtlxoLHQMVDKUOG9249-39-20 10:17:00 Test Item Value Reference Range Interpretation Comments Monocytes (test code = Monocytes) 11.7 2.0-12.0 [facility] CenterWasfegbWZKJWYENGN5495-67-94 10:17:00 Test Item Value Reference Range Interpretation Comments Eosinophils (test code = 3.5 See_Comment [A utomated message] The Eosinophils) system which ge nerated this result tra nsmitted reference range : <=4.0. The reference r corey was not used to int erpret this result as normal/abnormal . [place] 504842-04-24 10:17:00 Test Item Value Reference Range Interpretation Comments Basophils (test code = 0.8 See_Comment [Aut omated message] The Basophils) system which ge nerated this result tra nsmitted reference range : <=1.0. The reference r corey was not used to int erpret this result as normal/abnormal . [facility] CenterYwbjmuoNBCEODDISJ6905-38-62 10:17:00 Test Item Value Reference Range Interpretation Comments Neutrophils # (test code = Neutrophils 3.2 1.5-8.1 #) [facility] CenterXhqfqsfHVFQWIHNWN5833-39-64 10:17:00 Test Item Value Reference Range Interpretation Comments Lymphocytes # (test code = Lymphocytes 1.5 1.0-5.5 #) [place] 504842-04-24 10:17:00 Test Item Value Reference Range Interpretation Comments Monocytes # (test code 0.7 See_Comment [Aut omated message] The = Monocytes #) system which generated this result tra nsmitted reference range : <=0.8. The reference r corey was not used to int erpret this result as normal/abnormal . [place] 504842-04-24 10:17:00 Test Item Value Reference Range Interpretation Comments Eosinophils # (test code 0.2 See_Comment [A utomated message] The = Eosinophils #) system whic h generated this result tra nsmitted reference range : <=0.5. The reference r corey was not used to int erpret this result as normal/abnormal . [facility]ATHY[facility] JSMZYAF2036-98-64 10:17:00 Test Item Value Reference Range Interpretation Comments Ca Ion WB (test code = Ca Ion WB) 1.19 1.05-1.25 [place] 489142-04-24 10:17:00 Test Item Value Reference Range Interpretation Comments Ca Ion at pH 7.4 WB (test code = Ca Ion 1.19 1.05-1.25 at pH 7.4 WB) [facility]2022-04-22 06:26:00 Test Item Value Reference Range Interpretation Comments Magnesium Lvl (test code = Magnesium 2.4 1.8-2.4 Lvl) [place] 069722-04-22 06:26:00 Test Item Value Reference Range Interpretation Comments Glucose Lvl (test code = Glucose Lvl) 130 70-99 [place] 069722-04-22 06:26:00 Test Item Value Reference Range Interpretation Comments BUN (test code = BUN) 22 7-22 [place] 069722-04-22 06:26:00 Test Item Value Reference Range Interpretation Comments Creatinine Lvl (test code = Creatinine 1.31 0.50-1.40 Lvl) [place] 069722-04-22 06:26:00 Test Item Value Reference Range Interpretation Comments Sodium Lvl (test code = Sodium Lvl) 137 135-145 [place] 069722-04-22 06:26:00 Test Item Value Reference Range Interpretation Comments Potassium Lvl (test code = Potassium 3.8 3.5-5.1 Lvl) [place] 069722-04-22 06:26:00 Test Item Value Reference Range Interpretation Comments Chloride Lvl (test code = Chloride Lvl) 101 95-109 [place] 069722-04-22 06:26:00 Test Item Value Reference Range Interpretation Comments CO2 (test code = CO2) 29 24-32 [place] 069722-04-22 06:26:00 Test Item Value Reference Range Interpretation Comments AGAP (test code = AGAP) 10.8 10.0-20.0 [place] 069722-04-22 06:26:00 Test Item Value Reference Range Interpretation Comments Calcium Lvl (test code = Calcium Lvl) 9.3 8.5-10.5 [place] 069722-04-22 06:26:00 Test Item Value Reference Range Interpretation Comments B/C Ratio (test code = B/C Ratio) 17 1 6-25 [place] 069722-04-22 06:26:00 Test Item Value Reference Range Interpretation Comments Total Protein (test code = Total 6.9 6.4-8.4 Protein) [place] 069722-04-22 06:26:00 Test Item Value Reference Range Interpretation Comments Albumin Lvl (test code = Albumin Lvl) 3.3 3.5-5.0 [place] 069722-04-22 06:26:00 Test Item Value Reference Range Interpretation Comments Globulin (test code = Globulin) 3.6 2.7-4.2 [place] 069722-04-22 06:26:00 Test Item Value Reference Range Interpretation Comments A/G Ratio (test code = A/G Ratio) 0.9 1 0.7-1.6 [place] 069722-04-22 06:26:00 Test Item Value Reference Range Interpretation Comments ALT (test code = ALT) 15 See_Comment [Auto mated message] The system which ge nerated this result transmit diamante reference range : <=65. The reference range was not used to interpr et this result as amaury l/abnormal. [place] 069722-04-22 06:26:00 Test Item Value Reference Range Interpretation Comments AST (test code = AST) 14 See_Comment [Auto mated message] The system which ge nerated this result transmit diamante reference range : <=37. The reference range was not used to interpr et this result as amaury l/abnormal. [place] [address]-04-22 06:26:00 Test Item Value Reference Range Interpretation Comments Alk Phos (test code = Alk Phos) 68 39-136 [place] 069722-04-22 06:26:00 Test Item Value Reference Range Interpretation Comments Bili Total (test code = Bili Total) 1.3 0.2-1.3 [place] [address]-04-22 06:26:00 Test Item Value Reference Range Interpretation Comments eGFR (test code = eGFR) 50 [place] 069722-04-22 06:26:00 Test Item Value Reference Range Interpretation Comments Phosphorus (test code = Phosphorus) 3.6 2.5-4.5 [place] 504842-04-22 06:26:00 Test Item Value Reference Range Interpretation Comments Segs (test code = Segs) 64.9 45.0-75.0 [place] [address]-04-22 06:26:00 Test Item Value Reference Range Interpretation Comments Lymphocytes (test code = Lymphocytes) 20.3 20.0-40.0 [place] [address]-04-22 06:26:00 Test Item Value Reference Range Interpretation Comments Monocytes (test code = Monocytes) 10.4 2.0-12.0 [place] [address]-04-22 06:26:00 Test Item Value Reference Range Interpretation Comments Eosinophils (test code = 3.3 See_Comment [A utomated message] The Eosinophils) system which ge nerated this result tra nsmitted reference range : <=4.0. The reference r corey was not used to int erpret this result as normal/abnormal . [place] 504842-04-22 06:26:00 Test Item Value Reference Range Interpretation Comments Basophils (test code = 1.1 See_Comment [Aut omated message] The Basophils) system which ge nerated this result tra nsmitted reference range : <=1.0. The reference r corey was not used to int erpret this result as normal/abnormal . [place] 504842-04-22 06:26:00 Test Item Value Reference Range Interpretation Comments Neutrophils # (test code = Neutrophils 4.2 1.5-8.1 #) [facility]DWK[facility]08[facility]30-53 06:26:00 Test Item Value Reference Range Interpretation Comments Lymphocytes # (test code = Lymphocytes 1.3 1.0-5.5 #) [place] 504842-04-22 06:26:00 Test Item Value Reference Range Interpretation Comments Monocytes # (test code 0.7 See_Comment [Aut omated message] The = Monocytes #) system which generated this result tra nsmitted reference range : <=0.8. The reference r corey was not used to int erpret this result as normal/abnormal . [place] 504842-04-22 06:26:00 Test Item Value Reference Range Interpretation Comments Eosinophils # (test code 0.2 See_Comment [A utomated message] The = Eosinophils #) system whic h generated this result tra nsmitted reference range : <=0.5. The reference r corey was not used to int erpret this result as normal/abnormal . [facility] CenterGdqqyllTPMPZVULMU4205-67-69 06:26:00 Test Item Value Reference Range Interpretation Comments Basophils # (test code 0.1 See_Comment [Aut omated message] The = Basophils #) system which generated this result tra nsmitted reference range : <=0.2. The reference r corey was not used to int erpret this result as normal/abnormal . [facility] CenterHuvqkiiFEWFKQXUJK8794-61-89 06:26:00 Test Item Value Reference Range Interpretation Comments WBC (test code = WBC) 6.4 3.7-10.4 [place] 504842-04-22 06:26:00 Test Item Value Reference Range Interpretation Comments RBC (test code = RBC) 4.38 4.70-6.10 [place] 504842-04-22 06:26:00 Test Item Value Reference Range Interpretation Comments Hgb (test code = Hgb) 13.8 14.0-18.0 [place] [address]-04-22 06:26:00 Test Item Value Reference Range Interpretation Comments Hct (test code = Hct) 40.6 42.0-54.0 [place] [address]-04-22 06:26:00 Test Item Value Reference Range Interpretation Comments MCV (test code = MCV) 92.9 80.0-94.0 [place] [address]-04-22 06:26:00 Test Item Value Reference Range Interpretation Comments MCH (test code = MCH) 31.5 pg 27.0-31.0 [place] 504842-04-22 06:26:00 Test Item Value Reference Range Interpretation Comments MCHC (test code = MCHC) 34.0 32.0-36.0 [place] 504842-04-22 06:26:00 Test Item Value Reference Range Interpretation Comments RDW (test code = RDW) 13.7 11.5-14.5 [place] 504842-04-22 06:26:00 Test Item Value Reference Range Interpretation Comments Platelet (test code = Platelet) 194 133-450 [place] 504842-04-22 06:26:00 Test Item Value Reference Range Interpretation Comments MPV (test code = MPV) 8.0 7.4-10.4 [place] 069722-04-22 06:26:00 Test Item Value Reference Range Interpretation Comments Magnesium Lvl (test code = Magnesium 2.4 1.8-2.4 Lvl) [facility]2022-04-22 06:26:00 Test Item Value Reference Range Interpretation Comments Glucose Lvl (test code = Glucose Lvl) 130 70-99 [place] 069722-04-22 06:26:00 Test Item Value Reference Range Interpretation Comments BUN (test code = BUN) 22 7-22 [place] 069722-04-22 06:26:00 Test Item Value Reference Range Interpretation Comments Creatinine Lvl (test code = Creatinine 1.31 0.50-1.40 Lvl) [facility]2022-04-22 06:26:00 Test Item Value Reference Range Interpretation Comments Sodium Lvl (test code = Sodium Lvl) 137 135-145 [place] 069722-04-22 06:26:00 Test Item Value Reference Range Interpretation Comments Potassium Lvl (test code = Potassium 3.8 3.5-5.1 Lvl) [place] 069722-04-22 06:26:00 Test Item Value Reference Range Interpretation Comments Chloride Lvl (test code = Chloride Lvl) 101 95-109 [place] 069722-04-22 06:26:00 Test Item Value Reference Range Interpretation Comments CO2 (test code = CO2) 29 24-32 [place] 069722-04-22 06:26:00 Test Item Value Reference Range Interpretation Comments AGAP (test code = AGAP) 10.8 10.0-20.0 [place] [address]-04-22 06:26:00 Test Item Value Reference Range Interpretation Comments Calcium Lvl (test code = Calcium Lvl) 9.3 8.5-10.5 [place] [address]-04-22 06:26:00 Test Item Value Reference Range Interpretation Comments B/C Ratio (test code = B/C Ratio) 17 1 6-25 [place] [address]-04-22 06:26:00 Test Item Value Reference Range Interpretation Comments Total Protein (test code = Total 6.9 6.4-8.4 Protein) [place] 069722-04-22 06:26:00 Test Item Value Reference Range Interpretation Comments Albumin Lvl (test code = Albumin Lvl) 3.3 3.5-5.0 [place] 069722-04-22 06:26:00 Test Item Value Reference Range Interpretation Comments Globulin (test code = Globulin) 3.6 2.7-4.2 [place] 069722-04-22 06:26:00 Test Item Value Reference Range Interpretation Comments A/G Ratio (test code = A/G Ratio) 0.9 1 0.7-1.6 [place] [address]-04-22 06:26:00 Test Item Value Reference Range Interpretation Comments ALT (test code = ALT) 15 See_Comment [Auto mated message] The system which ge nerated this result transmit diamante reference range : <=65. The reference range was not used to interpr et this result as amaury l/abnormal. [facility] [id number] 06:26:00 Test Item Value Reference Range Interpretation Comments AST (test code = AST) 14 See_Comment [Auto mated message] The system which ge nerated this result transmit diamante reference range : <=37. The reference range was not used to interpr et this result as amaury l/abnormal. [place] 069722-04-22 06:26:00 Test Item Value Reference Range Interpretation Comments Alk Phos (test code = Alk Phos) 68 39-136 [place] 069722-04-22 06:26:00 Test Item Value Reference Range Interpretation Comments Bili Total (test code = Bili Total) 1.3 0.2-1.3 [place] 069722-04-22 06:26:00 Test Item Value Reference Range Interpretation Comments eGFR (test code = eGFR) 50 [place] 069722-04-22 06:26:00 Test Item Value Reference Range Interpretation Comments Phosphorus (test code = Phosphorus) 3.6 2.5-4.5 [place] 504842-04-22 06:26:00 Test Item Value Reference Range Interpretation Comments Segs (test code = Segs) 64.9 45.0-75.0 [place] 504842-04-22 06:26:00 Test Item Value Reference Range Interpretation Comments Lymphocytes (test code = Lymphocytes) 20.3 20.0-40.0 [place] 504842-04-22 06:26:00 Test Item Value Reference Range Interpretation Comments Monocytes (test code = Monocytes) 10.4 2.0-12.0 [place] 504842-04-22 06:26:00 Test Item Value Reference Range Interpretation Comments Eosinophils (test code = 3.3 See_Comment [A utomated message] The Eosinophils) system which ge nerated this result tra nsmitted reference range : <=4.0. The reference r corey was not used to int erpret this result as normal/abnormal . [place] 504842-04-22 06:26:00 Test Item Value Reference Range Interpretation Comments Basophils (test code = 1.1 See_Comment [Aut omated message] The Basophils) system which ge nerated this result tra nsmitted reference range : <=1.0. The reference r corey was not used to int erpret this result as normal/abnormal . [place] 504842-04-22 06:26:00 Test Item Value Reference Range Interpretation Comments Neutrophils # (test code = Neutrophils 4.2 1.5-8.1 #) [place] 504842-04-22 06:26:00 Test Item Value Reference Range Interpretation Comments Lymphocytes # (test code = Lymphocytes 1.3 1.0-5.5 #) [place] 504842-04-22 06:26:00 Test Item Value Reference Range Interpretation Comments Monocytes # (test code 0.7 See_Comment [Aut omated message] The = Monocytes #) system which generated this result tra nsmitted reference range : <=0.8. The reference r corey was not used to int erpret this result as normal/abnormal . [place] 504842-04-22 06:26:00 Test Item Value Reference Range Interpretation Comments Eosinophils # (test code 0.2 See_Comment [A utomated message] The = Eosinophils #) system whic h generated this result tra nsmitted reference range : <=0.5. The reference r corey was not used to int erpret this result as normal/abnormal . [place] 504842-04-22 06:26:00 Test Item Value Reference Range Interpretation Comments Basophils # (test code 0.1 See_Comment [Aut omated message] The = Basophils #) system which generated this result tra nsmitted reference range : <=0.2. The reference r corey was not used to int erpret this result as normal/abnormal . [place] 504842-04-22 06:26:00 Test Item Value Reference Range Interpretation Comments WBC (test code = WBC) 6.4 3.7-10.4 [place] 504842-04-22 06:26:00 Test Item Value Reference Range Interpretation Comments RBC (test code = RBC) 4.38 4.70-6.10 [place] [address]-04-22 06:26:00 Test Item Value Reference Range Interpretation Comments Hgb (test code = Hgb) 13.8 14.0-18.0 [place] [address]-04-22 06:26:00 Test Item Value Reference Range Interpretation Comments Hct (test code = Hct) 40.6 42.0-54.0 [place] [address]-04-22 06:26:00 Test Item Value Reference Range Interpretation Comments MCV (test code = MCV) 92.9 80.0-94.0 [facility]ZfpdvhqUDMBYSYXPI7058-77-46 06:26:00 Test Item Value Reference Range Interpretation Comments MCH (test code = MCH) 31.5 pg 27.0-31.0 [facility] CenterRjtzgpeWAETMKJWNA9507-95-73 06:26:00 Test Item Value Reference Range Interpretation Comments MCHC (test code = MCHC) 34.0 32.0-36.0 [facility] HospitalLsenklxSPXXBFPRGO7430-82-48 06:26:00 Test Item Value Reference Range Interpretation Comments RDW (test code = RDW) 13.7 11.5-14.5 [facility] HospitalLdlfnzqYFBJNSDTIK0181-21-22 06:26:00 Test Item Value Reference Range Interpretation Comments Platelet (test code = Platelet) 194 133-450 [facility] HospitalYleqeesIMHBIJLIQH1354-65-15 06:26:00 Test Item Value Reference Range Interpretation Comments MPV (test code = MPV) 8.0 7.4-10.4 [facility] HospitalCreisoft, Inc[facility] [id number] 11:15:00 Test Item Value Reference Range Interpretation Comments HS Troponin I (test code = HS Troponin 114 I) [facility] 11:15:00 Test Item Value Reference Range Interpretation Comments HS Troponin I (test code = HS Troponin 114 I) [facility] [employer] [id number] 08:36:00 Test Item Value Reference Range Interpretation Comments Magnesium Lvl (test code = Magnesium 2.3 1.8-2.4 Lvl) [facility] HospitalRedboothOTROE7136-58-32 08:36:00 Test Item Value Reference Range Interpretation Comments Phosphorus (test code = Phosphorus) 3.1 2.5-4.5 [facility] [employer]2022-04-21 08:36:00 Test Item Value Reference Range Interpretation Comments Glucose Lvl (test code = Glucose Lvl) 235 70-99 [facility]PAT[facility] [id number] 08:36:00 Test Item Value Reference Range Interpretation Comments BUN (test code = BUN) 19 -22 [facility]PAT[facility] [id number] 08:36:00 Test Item Value Reference Range Interpretation Comments Creatinine Lvl (test code = Creatinine 1.37 0.50-1.40 Lvl) [facility] HospitalRedboothUUYFO2448-23-48 08:36:00 Test Item Value Reference Range Interpretation Comments Sodium Lvl (test code = Sodium Lvl) 135 135-145 [place] 069722-04-21 08:36:00 Test Item Value Reference Range Interpretation Comments Potassium Lvl (test code = Potassium 3.7 3.5-5.1 Lvl) [place] [address]-04-21 08:36:00 Test Item Value Reference Range Interpretation Comments Chloride Lvl (test code = Chloride Lvl) 101 95-109 [place] 069722-04-21 08:36:00 Test Item Value Reference Range Interpretation Comments CO2 (test code = CO2) 24 24-32 [place] 069722-04-21 08:36:00 Test Item Value Reference Range Interpretation Comments AGAP (test code = AGAP) 13.7 10.0-20.0 [place] [address]-04-21 08:36:00 Test Item Value Reference Range Interpretation Comments Calcium Lvl (test code = Calcium Lvl) 9.1 8.5-10.5 [place] 069722-04-21 08:36:00 Test Item Value Reference Range Interpretation Comments B/C Ratio (test code = B/C Ratio) 14 1 6-[address]04-21 08:36:00 Test Item Value Reference Range Interpretation Comments Total Protein (test code = Total 7.2 6.4-8.4 Protein) [place] 069722-04-21 08:36:00 Test Item Value Reference Range Interpretation Comments Albumin Lvl (test code = Albumin Lvl) 3.5 3.5-5.0 [place] [address]-04-21 08:36:00 Test Item Value Reference Range Interpretation Comments Globulin (test code = Globulin) 3.7 2.7-4.2 [place] [address]-04-21 08:36:00 Test Item Value Reference Range Interpretation Comments A/G Ratio (test code = A/G Ratio) 0.9 1 0.7-1.6 [place] [address]-04-21 08:36:00 Test Item Value Reference Range Interpretation Comments ALT (test code = ALT) 18 See_Comment [Auto mated message] The system which ge nerated this result transmit diamante reference range : <=65. The reference range was not used to interpr et this result as amaury l/abnormal. [facility] [id number] 08:36:00 Test Item Value Reference Range Interpretation Comments AST (test code = AST) 16 See_Comment [Auto mated message] The system which ge nerated this result transmit diamante reference range : <=37. The reference range was not used to interpr et this result as amaury l/abnormal. [facility] [id number] 08:36:00 Test Item Value Reference Range Interpretation Comments Alk Phos (test code = Alk Phos) 71 39-136 [facility]PAT[facility] [id number] 08:36:00 Test Item Value Reference Range Interpretation Comments Bili Total (test code = Bili Total) 1.1 0.2-1.3 [facility] [id number] 08:36:00 Test Item Value Reference Range Interpretation Comments eGFR (test code = eGFR) 48 [facility] [id number] 08:36:00 Test Item Value Reference Range Interpretation Comments Bili Direct (test code 0.2 See_Comment [Aut omated message] The = Bili Direct) system which generated this result tra nsmitted reference range : <=0.3. The reference r corey was not used to int erpret this result as amaury l/abnormal. [facility] HospitalPxipdoxQTHFDKKMVY8972-06-41 08:36:00 Test Item Value Reference Range Interpretation Comments WBC (test code = WBC) 7.7 3.7-10.[address]04-21 08:36:00 Test Item Value Reference Range Interpretation Comments RBC (test code = RBC) 4.55 4.70-6.10 [facility] HospitalKuawkliNGAZVAWTNX4775-03-62 08:36:00 Test Item Value Reference Range Interpretation Comments Hgb (test code = Hgb) 14.3 14.0-18.0 [place] [address]-04-21 08:36:00 Test Item Value Reference Range Interpretation Comments Hct (test code = Hct) 42.6 42.0-54.0 [place] [address]-04-21 08:36:00 Test Item Value Reference Range Interpretation Comments MCV (test code = MCV) 93.7 80.0-94.0 [place] [address]-04-21 08:36:00 Test Item Value Reference Range Interpretation Comments MCH (test code = MCH) 31.4 pg 27.0-31.0 [place] 504842-04-21 08:36:00 Test Item Value Reference Range Interpretation Comments MCHC (test code = MCHC) 33.5 32.0-36.0 [place] 504842-04-21 08:36:00 Test Item Value Reference Range Interpretation Comments RDW (test code = RDW) 13.6 11.5-14.5 [place] 504842-04-21 08:36:00 Test Item Value Reference Range Interpretation Comments Platelet (test code = Platelet) 242 133-450 [place] 504842-04-21 08:36:00 Test Item Value Reference Range Interpretation Comments MPV (test code = MPV) 8.0 7.4-10.4 [place] [address]-04-21 08:36:00 Test Item Value Reference Range Interpretation Comments PT (test code = PT) 13.2 s 12.0-14.7 [place] 504842-04-21 08:36:00 Test Item Value Reference Range Interpretation Comments INR (test code = INR) 1.01 1 0.85-1.17 [place] 504842-04-21 08:36:00 Test Item Value Reference Range Interpretation Comments PTT (test code = PTT) 24.7 s 22.9-35.8 [place] [address]-04-21 08:36:00 Test Item Value Reference Range Interpretation Comments Segs (test code = Segs) 61.0 45.0-75.0 [place] 504842-04-21 08:36:00 Test Item Value Reference Range Interpretation Comments Lymphocytes (test code = Lymphocytes) 24.8 20.0-40.0 [place] [address]-04-21 08:36:00 Test Item Value Reference Range Interpretation Comments Monocytes (test code = Monocytes) 9.1 2.0-12.0 [place] [address]-04-21 08:36:00 Test Item Value Reference Range Interpretation Comments Eosinophils (test code = 4.3 See_Comment [A utomated message] The Eosinophils) system which ge nerated this result tra nsmitted reference range : <=4.0. The reference r corey was not used to int erpret this result as normal/abnormal . [facility] HospitalBseoydmLDKFITRDHV6824-43-12 08:36:00 Test Item Value Reference Range Interpretation Comments Basophils (test code = 0.8 See_Comment [Aut omated message] The Basophils) system which ge nerated this result tra nsmitted reference range : <=1.0. The reference r corey was not used to int erpret this result as normal/abnormal . [place] 504842-04-21 08:36:00 Test Item Value Reference Range Interpretation Comments Neutrophils # (test code = Neutrophils 4.7 1.5-8.1 #) [place] 504842-04-21 08:36:00 Test Item Value Reference Range Interpretation Comments Lymphocytes # (test code = Lymphocytes 1.9 1.0-5.5 #) [place] 504842-04-21 08:36:00 Test Item Value Reference Range Interpretation Comments Monocytes # (test code 0.7 See_Comment [Aut omated message] The = Monocytes #) system which generated this result tra nsmitted reference range : <=0.8. The reference r corey was not used to int erpret this result as normal/abnormal . [facility] HospitalWwvananFYKDQQWVDF1173-63-61 08:36:00 Test Item Value Reference Range Interpretation Comments Eosinophils # (test code 0.3 See_Comment [A utomated message] The = Eosinophils #) system whic h generated this result tra nsmitted reference range : <=0.5. The reference r corey was not used to int erpret this result as normal/abnormal . [facility] HospitalTmruqvzGMNUCYMEQT7412-24-81 08:36:00 Test Item Value Reference Range Interpretation Comments Basophils # (test code 0.1 See_Comment [Aut omated message] The = Basophils #) system which generated this result tra nsmitted reference range : <=0.2. The reference r corey was not used to int erpret this result as normal/abnormal . [facility] HospitalRedboothJYVXK6814-70-33 08:36:00 Test Item Value Reference Range Interpretation Comments Magnesium Lvl (test code = Magnesium 2.3 1.8-2.4 Lvl) [facility] HospitalRedboothGMGVA1216-64-01 08:36:00 Test Item Value Reference Range Interpretation Comments Phosphorus (test code = Phosphorus) 3.1 2.5-4.5 [place] 069722-04-21 08:36:00 Test Item Value Reference Range Interpretation Comments Glucose Lvl (test code = Glucose Lvl) 235 70-99 [place] 069722-04-21 08:36:00 Test Item Value Reference Range Interpretation Comments BUN (test code = BUN) 19 7-22 [place] 069722-04-21 08:36:00 Test Item Value Reference Range Interpretation Comments Creatinine Lvl (test code = Creatinine 1.37 0.50-1.40 Lvl) [place] 069722-04-21 08:36:00 Test Item Value Reference Range Interpretation Comments Sodium Lvl (test code = Sodium Lvl) 135 135-145 [place] 069722-04-21 08:36:00 Test Item Value Reference Range Interpretation Comments Potassium Lvl (test code = Potassium 3.7 3.5-5.1 Lvl) [place] 069722-04-21 08:36:00 Test Item Value Reference Range Interpretation Comments Chloride Lvl (test code = Chloride Lvl) 101 95-109 [place] 069722-04-21 08:36:00 Test Item Value Reference Range Interpretation Comments CO2 (test code = CO2) 24 24-32 [place] 069722-04-21 08:36:00 Test Item Value Reference Range Interpretation Comments AGAP (test code = AGAP) 13.7 10.0-20.0 [place] 069722-04-21 08:36:00 Test Item Value Reference Range Interpretation Comments Calcium Lvl (test code = Calcium Lvl) 9.1 8.5-10.5 [place] 069722-04-21 08:36:00 Test Item Value Reference Range Interpretation Comments B/C Ratio (test code = B/C Ratio) 14 1 6-25 [place] 069722-04-21 08:36:00 Test Item Value Reference Range Interpretation Comments Total Protein (test code = Total 7.2 6.4-8.4 Protein) [place] 069722-04-21 08:36:00 Test Item Value Reference Range Interpretation Comments Albumin Lvl (test code = Albumin Lvl) 3.5 3.5-5.0 [place] 069722-04-21 08:36:00 Test Item Value Reference Range Interpretation Comments Globulin (test code = Globulin) 3.7 2.7-4.2 [facility]PAT[facility] [id number] 08:36:00 Test Item Value Reference Range Interpretation Comments A/G Ratio (test code = A/G Ratio) 0.9 1 0.7-1.6 [facility]PAT[facility] [id number] 08:36:00 Test Item Value Reference Range Interpretation Comments ALT (test code = ALT) 18 See_Comment [Auto mated message] The system which ge nerated this result transmit diamante reference range : <=65. The reference range was not used to interpr et this result as amaury l/abnormal. [facility]PAT[facility] [id number] 08:36:00 Test Item Value Reference Range Interpretation Comments AST (test code = AST) 16 See_Comment [Auto mated message] The system which ge nerated this result transmit diamante reference range : <=37. The reference range was not used to interpr et this result as amaury l/abnormal. [facility]PAT[facility] [id number] 08:36:00 Test Item Value Reference Range Interpretation Comments Alk Phos (test code = Alk Phos) 71 39-136 [facility]PAT[facility] [id number] 08:36:00 Test Item Value Reference Range Interpretation Comments Bili Total (test code = Bili Total) 1.1 0.2-1.3 [facility] [id number] 08:36:00 Test Item Value Reference Range Interpretation Comments eGFR (test code = eGFR) 48 [facility]PAT[facility] [id number] 08:36:00 Test Item Value Reference Range Interpretation Comments Bili Direct (test code 0.2 See_Comment [Aut omated message] The = Bili Direct) system which generated this result tra nsmitted reference range : <=0.3. The reference r corey was not used to int erpret this result as amaury l/abnormal. [facility] HospitalTcqstptNNYGEGOXJJ6198-28-60 08:36:00 Test Item Value Reference Range Interpretation Comments WBC (test code = WBC) 7.7 3.7-10.4 [facility] HospitalStwkauhSILYPZZIRB2601-97-56 08:36:00 Test Item Value Reference Range Interpretation Comments RBC (test code = RBC) 4.55 4.70-6.10 [place] [address]-04-21 08:36:00 Test Item Value Reference Range Interpretation Comments Hgb (test code = Hgb) 14.3 14.0-18.0 [place] 504842-04-21 08:36:00 Test Item Value Reference Range Interpretation Comments Hct (test code = Hct) 42.6 42.0-54.0 [place] 504842-04-21 08:36:00 Test Item Value Reference Range Interpretation Comments MCV (test code = MCV) 93.7 80.0-94.0 [place] [address]-04-21 08:36:00 Test Item Value Reference Range Interpretation Comments MCH (test code = MCH) 31.4 pg 27.0-31.0 [place] 504842-04-21 08:36:00 Test Item Value Reference Range Interpretation Comments MCHC (test code = MCHC) 33.5 32.0-36.0 [place] 504842-04-21 08:36:00 Test Item Value Reference Range Interpretation Comments RDW (test code = RDW) 13.6 11.5-14.5 [place] 504842-04-21 08:36:00 Test Item Value Reference Range Interpretation Comments Platelet (test code = Platelet) 242 133-450 [facility]gyoukdVBCZNSDSUR5250-18-24 08:36:00 Test Item Value Reference Range Interpretation Comments MPV (test code = MPV) 8.0 7.4-10.4 [place] 504842-04-21 08:36:00 Test Item Value Reference Range Interpretation Comments PT (test code = PT) 13.2 s 12.0-14.7 [place] 504842-04-21 08:36:00 Test Item Value Reference Range Interpretation Comments INR (test code = INR) 1.01 1 0.85-1.17 [place] [address]-04-21 08:36:00 Test Item Value Reference Range Interpretation Comments PTT (test code = PTT) 24.7 s 22.9-35.8 [place] [address]-04-21 08:36:00 Test Item Value Reference Range Interpretation Comments Segs (test code = Segs) 61.0 45.0-75.0 [place] 504842-04-21 08:36:00 Test Item Value Reference Range Interpretation Comments Lymphocytes (test code = Lymphocytes) 24.8 20.0-40.0 [place] 504842-04-21 08:36:00 Test Item Value Reference Range Interpretation Comments Monocytes (test code = Monocytes) 9.1 2.0-12.0 [place] [address]-04-21 08:36:00 Test Item Value Reference Range Interpretation Comments Eosinophils (test code = 4.3 See_Comment [A utomated message] The Eosinophils) system which ge nerated this result tra nsmitted reference range : <=4.0. The reference r corey was not used to int erpret this result as normal/abnormal . [place] [address]-04-21 08:36:00 Test Item Value Reference Range Interpretation Comments Basophils (test code = 0.8 See_Comment [Aut omated message] The Basophils) system which ge nerated this result tra nsmitted reference range : <=1.0. The reference r corey was not used to int erpret this result as normal/abnormal . [facility] CenterRewduhyVJWRLPGWSY8368-95-97 08:36:00 Test Item Value Reference Range Interpretation Comments Neutrophils # (test code = Neutrophils 4.7 1.5-8.1 #) [place] 504842-04-21 08:36:00 Test Item Value Reference Range Interpretation Comments Lymphocytes # (test code = Lymphocytes 1.9 1.0-5.5 #) [place] [address]-04-21 08:36:00 Test Item Value Reference Range Interpretation Comments Monocytes # (test code 0.7 See_Comment [Aut omated message] The = Monocytes #) system which generated this result tra nsmitted reference range : <=0.8. The reference r corey was not used to int erpret this result as normal/abnormal . [place] [address]-04-21 08:36:00 Test Item Value Reference Range Interpretation Comments Eosinophils # (test code 0.3 See_Comment [A utomated message] The = Eosinophils #) system whic h generated this result tra nsmitted reference range : <=0.5. The reference r corey was not used to int erpret this result as normal/abnormal . [place] 504842-04-21 08:36:00 Test Item Value Reference Range Interpretation Comments Basophils # (test code 0.1 See_Comment [Aut omated message] The = Basophils #) system which generated this result tra nsmitted reference range : <=0.2. The reference r corey was not used to int erpret this result as normal/abnormal . [facility] SAKQUMC1099-12-45 15:17:00 Test Item Value Reference Range Interpretation Comments HS Troponin I 1 Hr (test code = HS 114 Troponin I 1 Hr) [facility] WPXYYVC6443-76-65 15:17:00 Test Item Value Reference Range Interpretation Comments HS Troponin I 0 to 1 Hour Delta (test -3 code = HS Troponin I 0 to 1 Hour Delta) [facility] UXSRLCB9226-77-42 15:17:00 Test Item Value Reference Range Interpretation Comments HS Troponin I 1 Hr (test code = HS 114 Troponin I 1 Hr) [facility] FTEQAAD4367-84-02 15:17:00 Test Item Value Reference Range Interpretation Comments HS Troponin I 0 to 1 Hour Delta (test -3 code = HS Troponin I 0 to 1 Hour Delta) [facility] EVNHSAI9826-74-38 13:55:00 Test Item Value Reference Range Interpretation Comments HS Troponin I Baseline (test code = HS 117 Troponin I Baseline) [facility] HospitalLsvvvbtKHRQYN1727-75-33 13:55:00 Test Item Value Reference Range Interpretation Comments Trig (test code = Trig) 128 [facility] HospitalCoxvjbgXCOVYJ8689-93-50 13:55:00 Test Item Value Reference Range Interpretation Comments Chol (test code = Chol) 86 [facility] HospitalOcfxdeiPYJTAK7562-25-76 13:55:00 Test Item Value Reference Range Interpretation Comments HDL (test code = HDL) 50 [facility] HospitalUvnfnnrPVKFWL9368-08-80 13:55:00 Test Item Value Reference Range Interpretation Comments CHD Risk (test code = CHD Risk) 1.72 1 4.00-7.30 [facility] HospitalIxtdycdQFYOKE6998-62-74 13:55:00 Test Item Value Reference Range Interpretation Comments LDL (Calculated) (test code = LDL 10 (Calculated)) [facility] HospitalZlfyzjaEONCMB3391-92-89 13:55:00 Test Item Value Reference Range Interpretation Comments VLDL (test code = VLDL) 26 1 [facility] UARUOLXES2259[facility]00-01 13:55:00 Test Item Value Reference Range Interpretation Comments Hgb A1C (test code = Hgb A1C) 9.9 [facility]annC[facility]AC ALTCRIR2746-04-70 13:55:00 Test Item Value Reference Range Interpretation Comments HS Troponin I Baseline (test code = HS 117 Troponin I Baseline) [facility] HospitalQmabzxqJOWSSM4862-01-00 13:55:00 Test Item Value Reference Range Interpretation Comments Trig (test code = Trig) 128 [facility] HospitalFokklrrMHLICQ1208-92-21 13:55:00 Test Item Value Reference Range Interpretation Comments Chol (test code = Chol) 86 [facility] HospitalEexmpncPGNFRB4056-01-34 13:55:00 Test Item Value Reference Range Interpretation Comments HDL (test code = HDL) 50 [facility] HospitalUldriivMYCZXZ5988-08-55 13:55:00 Test Item Value Reference Range Interpretation Comments CHD Risk (test code = CHD Risk) 1.72 1 4.00-7.30 [facility] HospitalNsdaoxtGBYVNJ3952-74-93 13:55:00 Test Item Value Reference Range Interpretation Comments LDL (Calculated) (test code = LDL 10 (Calculated)) [facility] HospitalJpawkhsGVTZYI6400-97-39 13:55:00 Test Item Value Reference Range Interpretation Comments VLDL (test code = VLDL) 26 1 [facility] CHTNLSBVP3032-57-68 13:55:00 Test Item Value Reference Range Interpretation Comments Hgb A1C (test code = Hgb A1C) 9.9 [facility]annCHEM WPUHK6859-74-65 12:59:00 Test Item Value Reference Range Interpretation Comments POC Creatinine (test code = POC 1.5 0.5-1.4 Creatinine) [facility] RIEKC5526-83-24 12:59:00 Test Item Value Reference Range Interpretation Comments POC Creatinine (test code = POC 1.5 0.5-1.4 Creatinine) [facility] HospitalPbjegyvMYYQBQUUKM8160-52-04 12:16:00 Test Item Value Reference Range Interpretation Comments Coronavirus (COVID-19) Not Detected (03/05/22 ERI (test code = 7:16 AM) Coronavirus (COVID-19) EIR) [facility] HospitalAwzxqrgUZAMFMVTSO4898-25-02 12:16:00 Test Item Value Reference Range Interpretation Comments Coronavirus (COVID-19) Not Detected (03/05/22 ERI (test code = 7:16 AM) Coronavirus (COVID-19) ERI) [facility] [employer] CJOYJPH3597-29-97 11:47:00 Test Item Value Reference Range Interpretation Comments ABO/Rh (test code = ABO/Rh) A POS [facility] [employer] FMDYIZX7705-36-90 11:47:00 Test Item Value Reference Range Interpretation Comments Antibody Scrn (test Negative (03/05/22 6:47 code = Antibody Scrn) AM) [employer] [id number] 11:47:00 Test Item Value Reference Range Interpretation Comments Total Protein (test code = Total 6.7 6.4-8.4 Protein) [facility]2022-04-20 11:47:00 Test Item Value Reference Range Interpretation Comments Albumin Lvl (test code = Albumin Lvl) 3.3 3.5-5.0 [facility]2022-04-20 11:47:00 Test Item Value Reference Range Interpretation Comments ALT (test code = ALT) 19 See_Comment [Auto mated message] The system which ge nerated this result transmit diamante reference range : <=65. The reference range was not used to interpr et this result as amaury l/abnormal. [facility]2022-04-20 11:47:00 Test Item Value Reference Range Interpretation Comments AST (test code = AST) 18 See_Comment [Auto mated message] The system which ge nerated this result transmit diamante reference range : <=37. The reference range was not used to interpr et this result as amaury l/abnormal. [facility]2022-04-20 11:47:00 Test Item Value Reference Range Interpretation Comments Alk Phos (test code = Alk Phos) 66 39-136 [facility] [employer]2022-04-20 11:47:00 Test Item Value Reference Range Interpretation Comments Bili Total (test code = Bili Total) 0.6 0.2-1.3 [facility]2022-04-20 11:47:00 Test Item Value Reference Range Interpretation Comments B/C Ratio (test code = B/C Ratio) 12 1 6-25 [facility]2022-04-20 11:47:00 Test Item Value Reference Range Interpretation Comments Globulin (test code = Globulin) 3.4 2.7-4.2 [facility]2022-04-20 11:47:00 Test Item Value Reference Range Interpretation Comments A/G Ratio (test code = A/G Ratio) 1.0 1 0.7-1.6 [facility] CenterQkjbnnlJFVBGDHOPR0297-53-18 11:47:00 Test Item Value Reference Range Interpretation Comments PTT (test code = PTT) 30.8 s 22.9-35.8 [facility]2022-04-20 11:47:00 Test Item Value Reference Range Interpretation Comments Ca Ion WB (test code = Ca Ion WB) 1.05 1.05-1.25 [facility]2022-04-20 11:47:00 Test Item Value Reference Range Interpretation Comments Ca Ion at pH 7.4 WB (test code = Ca Ion 1.03 1.05-1.25 at pH 7.4 WB) [facility] [employer] [facility] OFZUXRF1851-06-11 11:47:00 Test Item Value Reference Range Interpretation Comments ABO/Rh (test code = ABO/Rh) A POS [facility] VQROISM7891-27-07 11:47:00 Test Item Value Reference Range Interpretation Comments Antibody Scrn (test Negative (03/05/22 6:47 code = Antibody Scrn) AM) [facility]2022-04-20 11:47:00 Test Item Value Reference Range Interpretation Comments Total Protein (test code = Total 6.7 6.4-8.4 Protein) [facility]2022-04-20 11:47:00 Test Item Value Reference Range Interpretation Comments Albumin Lvl (test code = Albumin Lvl) 3.3 3.5-5.0 [facility]2022-04-20 11:47:00 Test Item Value Reference Range Interpretation Comments ALT (test code = ALT) 19 See_Comment [Auto mated message] The system which ge nerated this result transmit diamante reference range : <=65. The reference range was not used to interpr et this result as amaury l/abnormal. [facility] [id number] 11:47:00 Test Item Value Reference Range Interpretation Comments AST (test code = AST) 18 See_Comment [Auto mated message] The system which ge nerated this result transmit diamante reference range : <=37. The reference range was not used to interpr et this result as amaury l/abnormal. [facility]2022-04-20 11:47:00 Test Item Value Reference Range Interpretation Comments Alk Phos (test code = Alk Phos) 66 39-136 [facility]2022-04-20 11:47:00 Test Item Value Reference Range Interpretation Comments Bili Total (test code = Bili Total) 0.6 0.2-1.3 [facility]2022-04-20 11:47:00 Test Item Value Reference Range Interpretation Comments B/C Ratio (test code = B/C Ratio) 12 1 6-25 [facility]2022-04-20 11:47:00 Test Item Value Reference Range Interpretation Comments Globulin (test code = Globulin) 3.4 2.7-4.2 [facility]2022-04-20 11:47:00 Test Item Value Reference Range Interpretation Comments A/G Ratio (test code = A/G Ratio) 1.0 1 0.7-1.6 [facility] CenterGwpioyfIYVGZLQTJR7586-55-21 11:47:00 Test Item Value Reference Range Interpretation Comments PTT (test code = PTT) 30.8 s 22.9-35.8 [facility] NJIZVTE0126-21-71 11:47:00 Test Item Value Reference Range Interpretation Comments Ca Ion WB (test code = Ca Ion WB) 1.05 1.05-1.25 [facility]2022-04-20 11:47:00 Test Item Value Reference Range Interpretation Comments Ca Ion at pH 7.4 WB (test code = Ca Ion 1.03 1.05-1.25 at pH 7.4 WB) [facility] delpunr1280-88-78 17:17:57 Test Item Value Reference Range Interpretation Comments POC glucose (test code = 112 mg/dL 65-99 H Ope rator Name: [id number]) Radu Duffy ice ID: [id number] able: [facility] Notified animal care technician Interpretation (test Abnormal code = 86607-0) [facility] jbklzms3787-64-00 17:17:57 Test Item Value Reference Range Interpretation Comments POC glucose (test code = 112 mg/dL 65-99 H Ope rator Name: 31968-0) Radu Duffy ice ID: [id number] able: [facility] Notified animal care technician Interpretation (test Abnormal code = 99360-2) [facility] katsrwu9912-81-73 17:17:57 Test Item Value Reference Range Interpretation Comments POC glucose (test code = 112 mg/dL 65-99 H Ope rator Name: 10138-8) Radu Duffy ice ID: [id number] able: [facility] Notified animal care technician Interpretation (test Abnormal code = 73345-6) [place] [address] lafc7333-86-65 22:21:01 Test Item Value Reference Range Interpretation Comments Ventricular rate (test code = 253) Atrial rate (test code = 255) ME interval (test code = 266) QRSD interval [...] out Inferior infarct , age undetermined-Abnormal ECG- [place] [address] cxmn9443-96-34 22:21:01 Test Item Value Reference Range Interpretation Comments Ventricular rate (test code = 253) Atrial rate (test code = 255) ME interval (test code = 266) QRSD interval [...] out Inferior infarct , age undetermined-Abnormal ECG- [place] [address] yjte9311-54-56 22:21:01 Test Item Value Reference Range Interpretation Comments Ventricular rate (test code = 253) Atrial rate (test code = 255) ME interval (test code = 266) QRSD interval [...] out Inferior infarct , age undetermined-Abnormal ECG- [facility] stress qxpj0030-68-08 20:13:39 Test Item Value Reference Range Interpretation Comments Resting HR (test code = 9744336022) Resting BP (test code = 9437736752) Peak MET Achieved (test code = 8843774001) Protocol Name (test Lexiscan code = 3196998632) Time in Exercise 00:01:00 Phase (test code = 6130779267) Max Systolic BP (test code = 8205862313) Max Diastolic BP (test code = 7434520340) Max Heart Rate (test code = 3776103195) Max Predicted Heart Rate (test code = 2228034137) Target HR Formula (220 - Age)*100% (test code = 9114220332) Test Indication (test chest pain code = 5434285632) Arrhy During Ex (test code = 8039079781) ECG Interp Before EX (test code = 2362913963) ECG Interp During Ex (test code = 5325790251) Ex Summary Comment (test code = 9546424228) Overall HR Response to Exercise (test code = 9375146905) Overall BP Response To Exercise (test code = 1257026448) Reason for Protocol Complete Termination (test code = 9388735864) Stress Test -Waveform interpreted in Impression (test code report associated with = 8048249902) image study. No interpretation is provided as part of this Stress ECG report.- [facility] stress bmvg7854-75-75 20:13:39 Test Item Value Reference Range Interpretation Comments Resting HR (test code = 0370524220) Resting BP (test code = 9861674395) Peak MET Achieved (test code = 4065348014) Protocol Name (test Lexiscan code = 0303525670) Time in Exercise 00:01:00 Phase (test code = 6128456250) Max Systolic BP (test code = 8646606822) Max Diastolic BP (test code = 8833672681) Max Heart Rate (test code = 9249269547) Max Predicted Heart Rate (test code = 0903794989) Target HR Formula (220 - Age)*100% (test code = 7209524198) Test Indication (test chest pain code = 4949508690) Arrhy During Ex (test code = 4898240101) ECG Interp Before EX (test code = 9272898838) ECG Interp During Ex (test code = 3860944283) Ex Summary Comment (test code = 8729781244) Overall HR Response to Exercise (test code = 2344343284) Overall BP Response To Exercise (test code = 3930646388) Reason for Protocol Complete Termination (test code = 1629544143) Stress Test -Waveform interpreted in Impression (test code report associated with = 4284347004) image study. 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 (test code = 93050-6) Whether the patient has symptoms related to condition of interest (test code = 65038-3) Patient was hospitalized because of this condition (test code = 24090-8) Whether the patient was admitted to intensive care unit (ICU) for condition of interest (test code = 76177-4) Whether patient resides in a congregate care setting (test code = 05755-7) POCT GLUCOSE (AUTOMATED)2021-11-02 22:57:12 Test Item Value Reference Range Interpretation Comments POCT GLU (test code = 7574212397) 224 mg/dL 70-110 H Lab Interpretation (test code = Abnormal 65186-7) [facility] AYBY3063-17-35 22:37:57 Test Item Value Reference Range Interpretation Comments Lab Interpretation (test code = Abnormal 83779-6) [facility]2021-[facility]-02 17:43:02 Test Item Value Reference Range Interpretation Comments POCT GLU (test code = 4554241378) 264 mg/dL 70-110 H Lab Interpretation (test code = Abnormal 96024-3) [facility] PasoTROPONIN [id number] 15:07:47 Test Item Value Reference Interpretation Comments Range TROPONIN I (test 0.064 ng/mL See_Comment H [Automated code = 2235326066) message] The system which generated this result [...] biotin. Lab Interpretation Abnormal (test code = 25585-1) [facility] FIO-WAG7912-81-18 15:04:26 Test Item Value Reference Range Interpretation Comments NT-proBNP (test code 800 pg/mL See_Comment H [Autom ated = 1386119939) message] The system which generated this result transmitted reference range : <=450. The reference range was not used to interpret this result as normal/abnormal . ALYSSA (test code = ALYSSA) Biotin has been reported to cause a negative bias, interpret results relative to patient's use of biotin. Lab Interpretation Abnormal (test code = 14265-7) [facility]2021-11-02 13:36:38 Test Item Value Reference Range Interpretation Comments POCT GLU (test code = 7051916500) 185 mg/dL 70-110 H Lab Interpretation (test code = Abnormal 72907-6) [facility] METABOLIC PANEL (NA, K, CL, CO2, GLUCOSE, BUN, CREATININE, CA)2021-11-02 10:26:43 Test Item Value Reference Range Interpretation Comments NA (test code = 136 mmol/L 135-145 3929612296) K (test code = 4.0 mmol/L 3.5-5.0 1485595394) CL (test code = 99 mmol/L 98-108 9251072322) CO2 TOTAL (test code = 27 mmol/L 23-31 8725276960) AGAP (test code = 2-16 3217130418) BUN (test code = 30 mg/dL 7-23 H 2365589455) GLUCOSE (test code = 165 mg/dL 70-110 H 5168466491) CREATININE (test code = 1.42 mg/dL 0.60-1.25 H 3398515747) CALCIUM (test code = 9.5 mg/dL 8.6-10.6 6323505940) eGFR (test code = mL/min/1.73m2 1928182716) ALYSSA (test code = ALYSSA) Association of [...] tests). Lab Interpretation Abnormal (test code = 94217-1) [facility] WITH [id number] 10:01:58 Test Item Value Reference Range Interpretation [...] RDW-SD (test code = 39.8 fL 38.5-51.6 82281-3) RDW-CV (test code = 11.5 % 12.1-15.4 L 788-0) PLT (test code = See_Comment [Automated 777-3) message] The sy stem which generated this result transmitted reference range : 150 - 328 10*3/ ?L. The reference r corey was not used to interpret this result as normal/abnormal . MPV (test code = 10.5 fL 9.8-13.0 63254-1) NRBC/100 WBC (test See_Comment [Automat ed code = 8801853494) message] The system which generated this result transmitted reference range : 0.0 - 10.0 /100 WBCs. The refer ence range was not u sed to interpret th is result as normal/abnormal . NRBC x10^3 (test code <0.01 See_Comment [Auto mated = 7005315904) message] The s ystem which generated this result transmitted reference range : 10*3/?L. The reference range was not used to interpret this result as normal/abnormal . GRAN MAT (NEUT) % 59.3 % (test code = 770-8) IMM GRAN % (test code 0.30 % = 2772205656) LYMPH % (test code = 25.0 % 736-9) MONO % (test code = 10.7 % 5905-5) EOS % (test code = 4.1 % 713-8) BASO % (test code = 0.6 % 706-2) GRAN MAT x10^3(ANC) 4.19 10*3/uL 1.99-6.95 (test code = 4678736000) IMM GRAN x10^3 (test <0.03 0.00-0.06 code = 9707557205) LYMPH x10^3 (test code 1.77 10*3/uL 1.09-3.23 = 731-0) MONO x10^3 (test code 0.76 10*3/uL 0.36-1.02 = 742-7) EOS x10^3 (test code = 0.29 10*3/uL 0.06-0.53 711-2) BASO x10^3 (test code 0.04 10*3/uL 0.01-0.09 = 704-7) Lab Interpretation Abnormal (test code = 89399-3) [facility] GLUCOSE (AUTOMATED)2021-11-02 01:29:56 Test Item Value Reference Range Interpretation Comments POCT GLU (test code = 7709256160) 167 mg/dL 70-110 H Lab Interpretation (test code = Abnormal 08391-5) [facility] GLUCOSE (AUTOMATED)2021-11-01 17:40:19 Test Item Value Reference Range Interpretation Comments POCT GLU (test code = 3015297337) 193 mg/dL 70-110 H Lab Interpretation (test code = Abnormal 40226-1) [facility] GLUCOSE (AUTOMATED)2021-11-01 13:44:28 Test Item Value Reference Range Interpretation Comments POCT GLU (test code = 2300138619) 200 mg/dL 70-110 H Lab Interpretation (test code = Abnormal 83418-4) [facility] GLUCOSE (AUTOMATED)2021-11-01 01:38:43 Test Item Value Reference Range Interpretation Comments POCT GLU (test code = 2097644503) 177 mg/dL 70-110 H Lab Interpretation (test code = Abnormal 08509-9) [facility] GLUCOSE (AUTOMATED)2021-10-31 22:39:43 Test Item Value Reference Range Interpretation Comments POCT GLU (test code = 3113961450) 174 mg/dL 70-110 H Lab Interpretation (test code = Abnormal 77327-4) [facility] GLUCOSE (AUTOMATED)2021-10-31 17:40:22 Test Item Value Reference Range Interpretation Comments POCT GLU (test code = 0131150119) 224 mg/dL 70-110 H Lab Interpretation (test code = Abnormal 12799-9) [facility] [id number] 17:14:58 Test Item Value Reference Interpretation Comments Range TROPONIN I (test 0.080 ng/mL See_Comment H [Automated code = 6773893437) message] The system which generated this result [...] biotin. Lab Interpretation Abnormal (test code = 34567-5) [facility] IYZ-BUK1643-07-16 15:14:03 Test Item Value Reference Range Interpretation Comments NT-proBNP (test code 474 pg/mL See_Comment H [Autom ated = 5783515136) message] The system which generated this result transmitted reference range : <=450. The reference range was not used to interpret this result as normal/abnormal . ALYSSA (test code = ALYSSA) Biotin has been reported to cause a negative bias, interpret results relative to patient's use of biotin. Lab Interpretation Abnormal (test code = 07476-8) [facility] PasoLIPID PANEL (95919)(TOTAL CHOLESTEROL, TRIGLYCERIDES, HDL)2021-10-31 15:05:19 Test Item Value Reference Range Interpretation Comments CHOL (test code = 101 mg/dL 120-200 L 8701898670) HDL (test code = 36 mg/dL >40 L 0296044855) HDLC RATIO (test code = See_Comment [Au tomated message] 6006138896) The system [employer] generated this result transmit diamante reference range : <=5.0. The refe rence range was not u sed to interpret th is result as normal/abnormal . TRIG (test code = 143 mg/dL 30-170 0987496940) LDL CHOL (test code = 36 mg/dL See_Comment [Auto mated message] 30530-5) The system [employer] generated this result transmit diamante reference range : <=160. The refe rence range was not u sed to interpret th is result as normal/abnormal . VLDL (test code = 29 mg/dL 5-60 8924350287) Lab Interpretation (test Abnormal code = 19913-1) [facility]31 13:44:00 Test Item Value Reference Range Interpretation Comments POCT GLU (test code = 4033836034) 150 mg/dL 70-110 H Lab Interpretation (test code = Abnormal 87234-7) [facility] with [id number] 11:13:14 Test Item Value Reference Range Interpretation [...] RDW-SD (test code = 39.9 fL 38.5-51.6 14932-9) RDW-CV (test code = 11.8 % 12.1-15.4 L 788-0) PLT (test code = See_Comment [Automated 777-3) message] The sy stem which generated this result transmitted reference range : 150 - 328 10*3/ ?L. The reference r corey was not used to interpret this result as normal/abnormal . MPV (test code = 11.0 fL 9.8-13.0 50173-0) NRBC/100 WBC (test See_Comment [Automat ed code = 3517817561) message] The system which generated this result transmitted reference range : 0.0 - 10.0 /100 WBCs. The refer ence range was not u sed to interpret th is result as normal/abnormal . NRBC x10^3 (test code <0.01 See_Comment [Auto mated = 0372222680) message] The s ystem which generated this result transmitted reference range : 10*3/?L. The reference range was not used to interpret this result as normal/abnormal . GRAN MAT (NEUT) % 64.3 % (test code = 770-8) IMM GRAN % (test code 0.30 % = 4389390374) LYMPH % (test code = 21.7 % 736-9) MONO % (test code = 10.0 % 5905-5) EOS % (test code = 3.1 % 713-8) BASO % (test code = 0.6 % 706-2) GRAN MAT x10^3(ANC) 4.35 10*3/uL 1.99-6.95 (test code = 3437950597) IMM GRAN x10^3 (test <0.03 0.00-0.06 code = 4794386776) LYMPH x10^3 (test code 1.47 10*3/uL 1.09-3.23 = 731-0) MONO x10^3 (test code 0.68 10*3/uL 0.36-1.02 = 742-7) EOS x10^3 (test code = 0.21 10*3/uL 0.06-0.53 711-2) BASO x10^3 (test code 0.04 10*3/uL 0.01-0.09 = 704-7) Lab Interpretation Abnormal (test code = 89018-9) [id number]:09[facility]53 Test Item Value Reference Interpretation Comments Range TROPONIN I (test 0.101 ng/mL See_Comment H [Automated code = 5382455744) message] The system which generated this result [...] biotin. Lab Interpretation Abnormal (test code = 27344-8) [facility] Metabolic Panel (NA, K, CL, CO2, GLUCOSE, BUN, CREATININE, CA)2021-10-31 10:59:31 Test Item Value Reference Range Interpretation Comments NA (test code = 139 mmol/L 135-145 8422027760) K (test code = 4.1 mmol/L 3.5-5.0 4440706872) CL (test code = 103 mmol/L 98-108 0365184602) CO2 TOTAL (test code = 28 mmol/L 23-31 4590649985) AGAP (test code = 2-16 8376073348) BUN (test code = 43 mg/dL 7-23 H 4301855844) GLUCOSE (test code = 165 mg/dL 70-110 H 5641868157) CREATININE (test code = 1.68 mg/dL 0.60-1.25 H 7402914005) CALCIUM (test code = 9.6 mg/dL 8.6-10.6 6894144255) eGFR (test code = mL/min/1.73m2 3861754091) ALYSSA (test code = ALYSSA) Association of [...] tests). Lab Interpretation Abnormal (test code = 13240-3) [facility]cosylated Hemoglobin (A1C)2021-10-31 09:13:40 Test Item Value Reference Range Interpretation Comments HGB A1C (test code = 6.8 % 4.0-5.7 H 4548-4) ALYSSA (test code = ALYSSA) Reference RangesNormal: <5.7%Prediabetes: 5.7 - 6.4%Diabetes: > 6.5% Lab Interpretation (test Abnormal code = 40411-6) [facility] [id number] 06:48:18 Test Item Value Reference Interpretation Comments Range TROPONIN I (test 0.082 ng/mL See_Comment H [Automated code = 6052687933) message] The system which generated this result [...] biotin. Lab Interpretation Abnormal (test code = 87731-1) [facility] [id number] 02:09:48 Test Item Value Reference Interpretation Comments Range TROPONIN I (test 0.067 ng/mL See_Comment H [Automated code = 0558701781) message] The system which generated this result [...] biotin. Lab Interpretation Abnormal (test code = 81099-6) [facility]-TERMINAL [id number] 02:06:31 Test Item Value Reference Range Interpretation Comments NT-proBNP (test code 318 pg/mL See_Comment [Autom ated = 5704362245) message] The system which generated this result transmitted reference range : <=450. The reference range was not used to interpret this result as normal/abnormal . ALYSSA (test code = ALYSSA) Biotin has been reported to cause a negative bias, interpret results relative to patient's use of biotin. Lab Interpretation Normal (test code = 16797-0) [facility]COMP[facility] METABOLIC PANEL (53254)2021-10-31 01:58:28 Test Item Value Reference Range Interpretation Comments NA (test code = 137 mmol/L 135-145 7547440364) K (test code = 4.1 mmol/L 3.5-5.0 2414949439) CL (test code = 101 mmol/L 98-108 4674450067) CO2 TOTAL (test code = 26 mmol/L 23-31 4670781527) AGAP (test code = 2-16 9387796227) BUN (test code = 46 mg/dL 7-23 H 0064734136) GLUCOSE (test code = 213 mg/dL 70-110 H 9094626185) CREATININE (test code = 1.96 mg/dL 0.60-1.25 H 2837701942) TOTAL BILI (test code = 0.9 mg/dL 0.1-1.0 0961774959) CALCIUM (test code = 9.7 mg/dL 8.6-10.6 9051636641) T PROTEIN (test code = 7.0 g/dL 6.3-8.2 4624439282) ALBUMIN (test code = 4.3 g/dL 3.5-5.0 2759212723) ALK PHOS (test code = 58 U/L 34-122 2249631523) ALTv (test code = 20 U/L 50 1742-6) AST(SGOT) (test code = 27 U/L 13-40 0184163658) eGFR (test code = mL/min/1.73m2 3187155329) ALYSSA (test code = ALYSSA) Association of [...] tests). Lab Interpretation Abnormal (test code = 79051-1) [facility] PasoLIPASE, [id number] 01:57:48 Test Item Value Reference Range Interpretation Comments LIPASE (test code = 1932308398) 330 U/L 0-220 H Lab Interpretation (test code = Abnormal 68382-6) [facility]oaPTT2021-12-16 01:55:04 Test Item Value Reference Range Interpretation Comments APTT Patient (test See_Comment [Automat ed code = 3173-2) message] The system which generated this result transmitted reference range : 23 - 38 Seconds . The reference range was not used to interpr et this result as normal/abnormal . ALYSSA (test code = ALYSSA) The [facility] patient population mean normal value for aPTT is 30 seconds. Lab Interpretation Normal (test code = 11928-2) [facility] PasoPROTHROMBIN TIME / [id number] 01:53:08 Test Item Value Reference Range Interpretation [...] tions. Lab Interpretation (test Normal code = 91165-7) [facility] WITH [id number] 01:45:44 Test Item Value Reference Range Interpretation Comments WBC (test code = See_Comment [Automated 6690-2) message] The sy stem which generated this result transmitted reference range : 4.20 - 10.70 10*3/?L. The reference range was not used to interpret this result as normal/abnormal . RBC (test code = See_Comment L [Automated 909-8) message] The sy stem which generated this [...] RDW-SD (test code = 39.1 fL 38.5-51.6 51976-2) RDW-CV (test code = 11.6 % 12.1-15.4 L 788-0) PLT (test code = See_Comment [Automated 777-3) message] The sy stem which generated this result transmitted reference range : 150 - 328 10*3/ ?L. The reference r corey was not used to interpret this result as normal/abnormal . MPV (test code = 10.4 fL 9.8-13.0 10174-4) NRBC/100 WBC (test See_Comment [Automat ed code = 4227730709) message] The system which generated this result transmitted reference range : 0.0 - 10.0 /100 WBCs. The refer ence range was not u sed to interpret th is result as normal/abnormal . NRBC x10^3 (test code <0.01 See_Comment [Auto mated = 1064633554) message] The s ystem which generated this result transmitted reference range : 10*3/?L. The reference range was not used to interpret this result as normal/abnormal . GRAN MAT (NEUT) % 62.1 % (test code = 770-8) IMM GRAN % (test code 0.30 % = 2744913347) LYMPH % (test code = 23.4 % 736-9) MONO % (test code = 10.8 % 5905-5) EOS % (test code = 2.9 % 713-8) BASO % (test code = 0.5 % 706-2) GRAN MAT x10^3(ANC) 4.14 10*3/uL 1.99-6.95 (test code = 1456176980) IMM GRAN x10^3 (test <0.03 0.00-0.06 code = 4654827487) LYMPH x10^3 (test code 1.56 10*3/uL 1.09-3.23 = 731-0) MONO x10^3 (test code 0.72 10*3/uL 0.36-1.02 = 742-7) EOS x10^3 (test code = 0.19 10*3/uL 0.06-0.53 711-2) BASO x10^3 (test code 0.03 10*3/uL 0.01-0.09 = 704-7) Lab Interpretation Abnormal (test code = 05151-6) [facility]INAL[facility]IS2021-06-10 21:15:48 Test Item Value Reference Range Interpretation Comments APPEARANCE (test code = Clear Clear 3454017771) COLOR (test code = Yellow Yellow 6784983051) PH (test code = 4.8-8.0 8394980684) SP GRAVITY (test code = 1.003-1.030 1040361950) GLU U QUAL (test code = 50 mg/dL Normal A 5759788821) BLOOD (test code = Negative Negative INTERFERE NCE FROM 0564569615) ASCORBIC ACID M AY CAUSE FALSE NEG ATIVE RESULT KETONES (test code = Negative Negative 6683212275) PROTEIN (test code = Negative Negative 2887-8) UROBILIN (test code = Normal Normal 4219335836) BILIRUBIN (test code = Negative Negative 5848453324) NITRITE (test code = Negative Negative 6139935475) LEUK JESS (test code = Negative Negative 5231677189) RBC/HPF (test code = See_Comment [Autom ated message] 3934661054) The system [employer] generated this result transmitted ref erence range: 0 - 3 HP F. The reference range was not used to int erpret this result as normal/abnormal . WBC/HPF (test code = See_Comment [Autom ated message] 8108992272) The system [employer] generated this result transmitted ref erence range: 0 - 5 HP F. The reference range was not used to int erpret this result as normal/abnormal . BACTERIA (test code = Negative Negative 7791206841) SQ EPITH (test code = <1 See_Comment [Auto mated message] 1055293959) The system [employer] generated this result transmitted ref erence range: <=2 HPF. The reference range was not used to int erpret this result as normal/abnormal . HYAL CAST (test code = See_Comment [Aut omated message] 8948866461) The system [employer] generated this result transmitted ref erence range: <=2 LPF. The reference range was not used to int erpret this result as normal/abnormal . Lab Interpretation (test Abnormal code = 29420-2) [facility] 2 [id number] 20:30:53 Impression: Postoperative changes. Degenerative changes. No acute bony abnormality identified. End of Report. RL: [id number] Ordering Physician: NALLELY BHAT. Procedure: XR LUMBAR SPINE 2 VW Comparison: None. History: left sided low back pain for 1 week. denies fall or injury . Findings: Bilateral L4 laminectomy with bilateral mrashal and pedicle screw fixationL3-L5 with posterior crossbar L4/5. Epidural stimulator. Severe disc space narrowing T12/L1 with moderate disc space narrowing L1/2and L2/3 with severe disc space narrowing L5/S1. Discectomy with interbody bone grafting L4/5. Minimal grade 1 retrolisthesis of 2 mm L2 on L3. No acute fracture or dislocation identified. Atherosclerotic calcifications. [facility], Radiant Results Inft User - 04/25/2021 [...] signedby Benton Morales MD at 04/25/2021 3:30 PM[facility] PasoXR HIPS 2 VW [id number] 20:24:52Impression: Postoperative changes. Degenerative changes. No acute [...] clinicalconcern MRI is available.End of Report.RL: 3901 [facility] Metabolic Panel (NA, K, CL, CO2, GLUCOSE, BUN, CREATININE, CA)2020-05-24 14:15:00 Test Item Value Reference Range Interpretation Comments NA (test code = 139 mmol/L 135-145 1388925508) K (test code = 4.1 mmol/L 3.5-5 3792232669) CL (test code = 104 mmol/L 98-108 3937737640) CO2 TOTAL (test code = 26 mmol/L 23-31 7244287411) AGAP (test code = 2-16 9410668867) BUN (test code = 22 mg/dL 7-23 3503575063) GLUCOSE (test code = 203 mg/dL 70-110 H 0835806892) CREATININE (test code = 1.40 mg/dL 0.6-1.25 H 8708562515) CALCIUM (test code = 9.1 mg/dL 8.6-10.6 4098972232) eGFR Calculation mL/min/1.73m2 (Non-) (test code = 7311470383) eGFR Calculation mL/min/1.73m2 () (test code = 5053528476) ALYSSA (test code = ALYSSA) Association of [...] tests). Lab Interpretation Abnormal (test code = 59501-5) [facility] Paso[facility] Function Panel (ALB, T.PRO, BILI T, BU/BC, ALT, AST, ALK PHOS)2020-05-24 13:54:00 Test Item Value Reference Range Interpretation Comments TOTAL BILI (test code = 2846742056) 0.9 mg/dL 0.1-1.1 BILI UNCON (test code = 6978490561) 1.0 mg/dL 0.1-1.1 BILI CONJ (test code = 2448714519) 0.0 mg/dL 0-0.3 T PROTEIN (test code = 1324008722) 7.0 g/dL 6.3-8.2 ALBUMIN (test code = 5015006490) 4.2 g/dL 3.5-5 ALK PHOS (test code = 5888381053) 49 U/L 34-122 ALTv (test code = 1742-6) 17 U/L 5-50 AST(SGOT) (test code = 5447870751) 25 U/L 13-40 Lab Interpretation (test code = Normal 59834-7) [facility]oaPTT2020-07-09 13:32:00 Test Item Value Reference Range Interpretation Comments APTT Patient (test See_Comment [Automat ed code = 3173-2) message] The system which generated this result transmitted reference range : 23 - 38 Seconds . The reference range was not used to interpr et this result as normal/abnormal . ALYSSA (test code = ALYSSA) The [facility] patient population mean normal value for aPTT is 30 seconds. Lab Interpretation Normal (test code = 72226-4) [facility] PasoProthrombin Time (PT) / [id number] 13:30:00 Test Item Value Reference Range Interpretation [...] tions. Lab Interpretation (test Normal code = 37429-9) [facility] WITH [id number] 13:27:00 Test Item Value Reference Range Interpretation [...] RDW-SD (test code = 42.6 fL 38.5-51.6 82977-8) RDW-CV (test code = 12.3 % 12.1-15.4 788-0) PLT (test code = See_Comment [Automated 777-3) message] The sy stem which generated this result transmitted reference range : 150 - 328 10*3/ ?L. The reference r corey was not used to interpret this result as normal/abnormal . MPV (test code = 9.9 fL 9.8-13 58033-7) NRBC/100 WBC (test See_Comment [Automat ed code = 9127225325) message] The system which generated this result transmitted reference range : 0.0 - 10.0 /100 WBCs. The refer ence range was not u sed to interpret th is result as normal/abnormal . NRBC x10^3 (test code <0.01 See_Comment [Auto mated = 6363945782) message] The s ystem which generated this result transmitted reference range : 10*3/?L. The reference range was not used to interpret this result as normal/abnormal . GRAN MAT (NEUT) % 55.1 % (test code = 770-8) IMM GRAN % (test code 0.20 % = 3749002165) LYMPH % (test code = 28.8 % 736-9) MONO % (test code = 11.3 % 5905-5) EOS % (test code = 3.5 % 713-8) BASO % (test code = 1.1 % 706-2) GRAN MAT x10^3(ANC) 3.11 10*3/uL 1.99-6.95 (test code = 1015988346) IMM GRAN x10^3 (test <0.03 0-0.06 code = 5066122570) LYMPH x10^3 (test code 1.63 10*3/uL 1.09-3.23 = 731-0) MONO x10^3 (test code 0.64 10*3/uL 0.36-1.02 = 742-7) EOS x10^3 (test code = 0.20 10*3/uL 0.06-0.53 711-2) BASO x10^3 (test code 0.06 10*3/uL 0.01-0.09 = 704-7) Lab Interpretation Abnormal (test code = 38859-3) [facility] VW [id number] 13:25:58HISTORY: ?Pain. FINDINGS: AP, lateral, oblique views [...] Interpretation Comments POCT GLU (test code = 8759255440) 173 mg/dL 70-110 H Lab Interpretation (test code = Abnormal 57190-7) [facility] GLUCOSE (AUTOMATED)2020-03-23 22:34:00 Test Item Value Reference Range Interpretation Comments POCT GLU (test code = 9651715045) 173 mg/dL 70-110 H Lab Interpretation (test code = Abnormal 21710-1) [facility] GLUCOSE (AUTOMATED)2020-03-23 18:12:00 Test Item Value Reference Range Interpretation Comments POCT GLU (test code = 165 mg/dL 70-110 H Notifi ed Provider 8166820519) Lab Interpretation (test Abnormal code = 42951-3) [facility] GLUCOSE (AUTOMATED)2020-03-23 18:12:00 Test Item Value Reference Range Interpretation Comments POCT GLU (test code = 165 mg/dL 70-110 H Notifi ed Provider [id number]) Lab Interpretation (test Abnormal code = 60202-6) [facility] GLUCOSE (AUTOMATED)2020-03-23 15:04:00 Test Item Value Reference Range Interpretation Comments POCT GLU (test code = 114 mg/dL 70-110 H Notifi ed Provider [id number]) Lab Interpretation (test Abnormal code = 71650-6) [facility] GLUCOSE (AUTOMATED)2020-03-23 15:04:00 Test Item Value Reference Range Interpretation Comments POCT GLU (test code = 114 mg/dL 70-110 H Notifi ed Provider [id number]) Lab Interpretation (test Abnormal code = 85950-1) [facility] PasoFERRITIN [id number] 13:23:00 Test Item Value Reference Range Interpretation Comments FERRITIN (test code = 139.0 ng/mL 18464 4639637485) ALYSSA (test code = ALYSSA) Biotin has been reported to cause a negative bias, interpret results relative to patient's use of biotin. Lab Interpretation (test Normal code = 42143-3) [facility] PasoFERNHTIN [id number] 13:23:00 Test Item Value Reference Range Interpretation Comments FERRITIN (test code = 139.0 ng/mL 18464 9521424633) ALYSSA (test code = ALYSSA) Biotin has been reported to cause a negative bias, interpret results relative to patient's use of biotin. Lab Interpretation (test Normal code = 14934-2) [facility] [id number] 12:53:00 Test Item Value Reference Range Interpretation Comments IRON (test code = 0269426995) 87 ug/dL 50-160 TIBC (test code = 7848990349) 385 ug/dL 250-410 % FE SAT (test code = 2820346903) 23 % 20-50 Lab Interpretation (test code = Normal 35899-9) [facility] [id number] 12:53:00 Test Item Value Reference Range Interpretation Comments IRON (test code = 7064633653) 87 ug/dL 50-160 TIBC (test code = 8607111901) 385 ug/dL 250-410 % FE SAT (test code = 3509113352) 23 % 20-50 Lab Interpretation (test code = Normal 34372-4) [facility]PTT2020-05-08 12:07:00 Test Item Value Reference Range Interpretation Comments APTT Patient (test code See_Comment [Au tomated message] = 3173-2) The system [employer] generated this result transmitted ref erence range: 26 - 36 Seconds. The reference range was not used to int erpret this result as normal/abnormal . Lab Interpretation (test Abnormal code = 54324-5) [facility]TT2020-05-08 12:07:00 Test Item Value Reference Range Interpretation Comments APTT Patient (test code See_Comment [Au tomated message] = 3173-2) The system [employer] generated this result transmitted ref erence range: 26 - 36 Seconds. The reference range was not used to int erpret this result as normal/abnormal . Lab Interpretation (test Abnormal code = 55639-0) [facility] PasoTROPONIN [id number] 11:57:00 Test Item Value Reference Range Interpretation Comments TROPONIN I (test 0.046 ng/mL See_Comment H [Automated code = 6406281875) message] The system which generated this result [...] ? Lab Interpretation Abnormal (test code = 21577-9) [facility] PasoTROPONIN [id number] 11:57:00 Test Item Value Reference Range Interpretation Comments TROPONIN I (test 0.046 ng/mL See_Comment H [Automated code = 7693099191) message] The system which generated this result [...] ? Lab Interpretation Abnormal (test code = 21412-6) [facility]OLIC PANEL (NA, K, CL, CO2, GLUCOSE, BUN, CREATININE, CA)2020-03-23 11:52:00 Test Item Value Reference Range Interpretation Comments NA (test code = 137 mmol/L 135-145 7546410726) K (test code = 4.1 mmol/L 3.5-5 1019849801) CL (test code = 102 mmol/L 98-108 9367579267) CO2 TOTAL (test code = 26 mmol/L 23-31 0918042362) AGAP (test code = 2-16 9308263820) BUN (test code = 18 mg/dL 7-23 0597748827) GLUCOSE (test code = 119 mg/dL 70-110 H 9371928706) CREATININE (test code = 1.14 mg/dL 0.6-1.25 5973469981) CALCIUM (test code = 9.1 mg/dL 8.6-10.6 5062049911) eGFR Calculation mL/min/1.73m2 (Non-) (test code = 0639509574) eGFR Calculation mL/min/1.73m2 () (test code = 1981955175) ALYSSA (test code = ALYSSA) Association of [...] tests). Lab Interpretation Abnormal (test code = 35399-4) [facility] Test Item Value Reference Range Interpretation Comments MAGNESIUM (test code = 1781755117) 2.2 mg/dL 1.7-2.4 Lab Interpretation (test code = Normal 81169-1) [facility] (NA, K, CL, CO2, GLUCOSE, BUN, CREATININE, CA)2020-03-23 11:52:00 Test Item Value Reference Range Interpretation Comments NA (test code = 137 mmol/L 135-145 5374054690) K (test code = 4.1 mmol/L 3.5-5 2691590975) CL (test code = 102 mmol/L 98-108 4927158423) CO2 TOTAL (test code = 26 mmol/L 23-31 6414887912) AGAP (test code = 2-16 7965125546) BUN (test code = 18 mg/dL 7-23 9624441017) GLUCOSE (test code = 119 mg/dL 70-110 H 4050137177) CREATININE (test code = 1.14 mg/dL 0.6-1.25 4591963198) CALCIUM (test code = 9.1 mg/dL 8.6-10.6 2022993275) eGFR Calculation mL/min/1.73m2 (Non-) (test code = 5932812133) eGFR Calculation mL/min/1.73m2 () (test code = 0327271105) ALYSSA (test code = ALYSSA) Association of [...] tests). Lab Interpretation Abnormal (test code = 56208-5) [facility] PasoMAGNESIUM2020-05-08 11:52:00 Test Item Value Reference Range Interpretation Comments MAGNESIUM (test code = 9604483116) 2.2 mg/dL 1.7-2.4 Lab Interpretation (test code = Normal 31791-5) [facility] PasoProthrombin Time (PT) / [id number] 11:36:00 Test Item Value Reference Range Interpretation Comments PROTIME PATIENT (test See_Comment [Auto mated message] code = 5964-2) The system [employer] generated this result transmitted ref erence range: 10.1 - 1 2.6 Seconds. The re ference range was not u sed to interpret this result as normal/abnor mal. INR (test code = 6301-6) Nor mal INR <1.1; Warfarin Therap eutic range 2.0 to 3. 0 or 2.5 to 3.5, dep ending upon the indica tions. Lab Interpretation (test Normal code = 70463-7) [facility] PasoProthrombin Time (PT) / [id number] 11:36:00 Test Item Value Reference Range Interpretation Comments PROTIME PATIENT (test See_Comment [Auto mated message] code = 5964-2) The system [facility] generated this result transmitted ref erence range: 10.1 - 1 2.6 Seconds. The re ference range was not u sed to interpret this result as normal/abnor mal. INR (test code = 6301-6) Nor mal INR <1.1; Warfarin Therap eutic range 2.0 to 3. 0 or 2.5 to 3.5, dep ending upon the indica tions. Lab Interpretation (test Normal code = 39458-3) [facility] PasoTROPONIN [id number] 06:38:00 Test Item Value Reference Range Interpretation Comments TROPONIN I (test 0.045 ng/mL See_Comment H [Automated code = 1695061642) message] The system which generated this result [...] ? Lab Interpretation Abnormal (test code = 26467-2) [facility] PasoKATEN [id number] 06:38:00 Test Item Value Reference Range Interpretation Comments TROPONIN I (test 0.045 ng/mL See_Comment H [Automated code = 4017074571) message] The system which generated this result [...] ? Lab Interpretation Abnormal (test code = 06441-4) [facility] (NA, K, CL, CO2, GLUCOSE, BUN, CREATININE, CA)2020-03-23 06:29:00 Test Item Value Reference Range Interpretation Comments NA (test code = 137 mmol/L 135-145 7726131978) K (test code = 3.6 mmol/L 3.5-5 7074385708) CL (test code = 101 mmol/L 98-108 7137191484) CO2 TOTAL (test code = 27 mmol/L 23-31 2596718863) AGAP (test code = 2-16 0146242637) BUN (test code = 19 mg/dL 7-23 6564567861) GLUCOSE (test code = 153 mg/dL 70-110 H 5973074673) CREATININE (test code = 1.22 mg/dL 0.6-1.25 5704054290) CALCIUM (test code = 8.9 mg/dL 8.6-10.6 9048350020) eGFR Calculation mL/min/1.73m2 (Non-) (test code = 2016457436) eGFR Calculation mL/min/1.73m2 () (test code = 7863584555) ALYSSA (test code = ALYSSA) Association of [...] tests). Lab Interpretation Abnormal (test code = 19708-1) [facility] 06[facility]00 Test Item Value Reference Range Interpretation Comments MAGNESIUM (test code = 1596461901) 1.7 mg/dL 1.7-2.4 Lab Interpretation (test code = Normal 77953-3) [facility] (28403)(TOTAL CHOLESTEROL, TRIGLYCERIDES, HDL)2020-03-23 06:29:00 Test Item Value Reference Range Interpretation Comments CHOL (test code = 106 mg/dL 120-200 L 9288535893) HDL (test code = 46 mg/dL >40 7114168050) HDLC RATIO (test code = See_Comment [Au tomated message] 3789253896) The system [employer] generated this result transmit diamante reference range : <=5.0. The refe rence range was not u sed to interpret th is result as normal/abnormal . TRIG (test code = 74 mg/dL 30-170 9474174266) LDL CHOL (test code = 45 mg/dL See_Comment [Auto mated message] 29547-7) The system [employer] generated this result transmit diamante reference range : <=160. The refe rence range was not u sed to interpret th is result as normal/abnormal . VLDL (test code = 15 mg/dL 5-60 0737094294) Lab Interpretation (test Abnormal code = 41163-4) [facility] (NA, K, CL, CO2, GLUCOSE, BUN, CREATININE, CA)2020-03-23 06:29:00 Test Item Value Reference Range Interpretation Comments NA (test code = 137 mmol/L 135-145 7943640264) K (test code = 3.6 mmol/L 3.5-5 2979825341) CL (test code = 101 mmol/L 98-108 9461478388) CO2 TOTAL (test code = 27 mmol/L 23-31 2506928517) AGAP (test code = 2-16 0693208860) BUN (test code = 19 mg/dL 7-23 8734849255) GLUCOSE (test code = 153 mg/dL 70-110 H 8379834738) CREATININE (test code = 1.22 mg/dL 0.6-1.25 7720232818) CALCIUM (test code = 8.9 mg/dL 8.6-10.6 1173229416) eGFR Calculation mL/min/1.73m2 (Non-) (test code = 9487939630) eGFR Calculation mL/min/1.73m2 () (test code = 6960656399) ALYSSA (test code = ALYSSA) Association of [...] tests). Lab Interpretation Abnormal (test code = 68109-7) [facility] 06:29:00 Test Item Value Reference Range Interpretation Comments MAGNESIUM (test code = 2475120362) 1.7 mg/dL 1.7-2.4 Lab Interpretation (test code = Normal 36699-9) [facility] (93422)(TOTAL CHOLESTEROL, TRIGLYCERIDES, HDL)2020-03-23 06:29:00 Test Item Value Reference Range Interpretation Comments CHOL (test code = 106 mg/dL 120-200 L 3140126061) HDL (test code = 46 mg/dL >40 6044912637) HDLC RATIO (test code = See_Comment [Au tomated message] 4049395926) The system [employer] generated this result transmit diamante reference range : <=5.0. The refe rence range was not u sed to interpret th is result as normal/abnormal . TRIG (test code = 74 mg/dL 30-170 3864289258) LDL CHOL (test code = 45 mg/dL See_Comment [Auto mated message] 70547-6) The system [employer] generated this result transmit diamante reference range : <=160. The refe rence range was not u sed to interpret th is result as normal/abnormal . VLDL (test code = 15 mg/dL 5-60 6387739021) Lab Interpretation (test Abnormal code = 09008-8) [facility]oa[facility]TT2020-05-08 03:18:00 Test Item Value Reference Range Interpretation Comments APTT Patient (test code = See_Comment [ Automated message] 3173-2) The system [employer] generated this result transmitted ref erence range: 26 - 36 Seconds. The re ference range was not u sed to interpret this result as normal/abnor mal. Lab Interpretation (test Normal code = 36221-1) [facility]oa[facility]TT2020-05-08 03:18:00 Test Item Value Reference Range Interpretation Comments APTT Patient (test code = See_Comment [ Automated message] 3173-2) The system [employer] h generated this result transmitted ref erence range: 26 - 36 Seconds. The re ference range was not u sed to interpret this result as normal/abnor mal. Lab Interpretation (test Normal code = 70024-7) [facility] PasoPROTHROMBIN TIME / [id number] 03:07:00 Test Item Value Reference Range Interpretation Comments PROTIME PATIENT (test See_Comment [Auto mated message] code = 5964-2) The system [place] [facility] generated this result transmitted ref erence range: 10.1 - 1 2.6 Seconds. The re ference range was not u sed to interpret this result as normal/abnor mal. INR (test code = 6301-6) Nor mal INR <1.1; Warfarin Therap eutic range 2.0 to 3. 0 or 2.5 to 3.5, dep ending upon the indica tions. Lab Interpretation (test Normal code = 37716-4) [facility] PasoPROTHROMBIN TIME / [id number] 03:07:00 Test Item Value Reference Range Interpretation Comments PROTIME PATIENT (test See_Comment [Auto mated message] code = 5964-2) The system [place] [facility] generated this result transmitted ref erence range: 10.1 - 1 2.6 Seconds. The re ference range was not u sed to interpret this result as normal/abnor mal. INR (test code = 6301-6) Nor mal INR <1.1; Warfarin Therap eutic range 2.0 to 3. 0 or 2.5 to 3.5, dep ending upon the indica tions. Lab Interpretation (test Normal code = 61339-1) [facility] CHEST 2 [id number] 02:23:32 No acute cardiopulmonary process. Preliminary Report [...] reviewed this study and agree with the abovereport.[facility] 2 VW 2020-03-23 02:23:32 No acute [...] this study and agree with the abovereport. [facility] COVID-19 [id number] 01:23:00 Test Item Value Reference Range Interpretation Comments SARS-CoV-2 (test code = Not Detected Not Detected 63497-9) ALYSSA (test code = ALYSSA) ID NOW COVID-19 Assay is an isothermal nucleic acid amplification test intended for the qualitative detection of nucleic acid from SARS-CoV-2 viral RNA in nasopharyngeal (ADVERTISING STATISTICAL CLERK) specimens. It is used under Emergency Use [...] indicated. Lab Interpretation Normal (test code = 98983-8) [facility]-19 [id number] 01:23:00 Test Item Value Reference Range Interpretation Comments SARS-CoV-2 (test code = Not Detected Not Detected 68001-6) ALYSSA (test code = ALYSSA) ID NOW COVID-19 Assay is an isothermal nucleic acid amplification test intended for the qualitative detection of nucleic acid from SARS-CoV-2 viral RNA in nasopharyngeal (ADVERTISING STATISTICAL CLERK) specimens. It is used under Emergency Use [...] indicated. Lab Interpretation Normal (test code = 15219-5) [facility] Paso[facility]MINAL [id number] 00:12:00 Test Item Value Reference Range Interpretation Comments NT-proBNP (test code 585 pg/mL See_Comment H [Autom ated = 7019143416) message] The system which generated this result transmitted reference range : <=450. The reference range was not used to interpret this result as normal/abnormal . ALYSSA (test code = ALYSSA) Biotin has been reported to cause a negative bias, interpret results relative to patient's use of biotin. Lab Interpretation Abnormal (test code = 14526-5) [facility] [id number] 00:12:00 Test Item Value Reference Range Interpretation Comments TROPONIN I (test 0.030 ng/mL See_Comment [Automated code = 6527020191) message] The system which generated this result [...] ? Lab Interpretation Normal (test code = 08669-1) [facility] [id number] 00:12:00 Test Item Value Reference Range Interpretation Comments NT-proBNP (test code 585 pg/mL See_Comment H [Autom ated = 3244833745) message] The system which generated this result transmitted reference range : <=450. The reference range was not used to interpret this result as normal/abnormal . ALYSSA (test code = ALYSSA) Biotin has been reported to cause a negative bias, interpret results relative to patient's use of biotin. Lab Interpretation Abnormal (test code = 60308-9) [facility] [id number] 00:12:00 Test Item Value Reference Range Interpretation Comments TROPONIN I (test 0.030 ng/mL See_Comment [Automated code = 6932194102) message] The system which generated this result [...] ? Lab Interpretation Normal (test code = 14674-5) [facility]. METABOLIC PANEL (39802)2020-03-23 00:03:00 Test Item Value Reference Range Interpretation Comments NA (test code = 138 mmol/L 135-145 9927698588) K (test code = 4.1 mmol/L 3.5-5 7557105221) CL (test code = 103 mmol/L 98-108 8059139338) CO2 TOTAL (test code = 26 mmol/L 23-31 8709744594) AGAP (test code = 2-16 2324680680) BUN (test code = 18 mg/dL 7-23 6199918564) GLUCOSE (test code = 157 mg/dL 70-110 H 1229371498) CREATININE (test code = 1.19 mg/dL 0.6-1.25 4549691256) TOTAL BILI (test code = 1.1 mg/dL 0.1-1.1 5670148076) CALCIUM (test code = 9.2 mg/dL 8.6-10.6 8363889883) T PROTEIN (test code = 6.8 g/dL 6.3-8.2 0039001316) ALBUMIN (test code = 4.0 g/dL 3.5-5 2837589995) ALK PHOS (test code = 51 U/L 34-122 5547446603) ALTv (test code = 16 U/L 5-50 1742-6) AST(SGOT) (test code = 23 U/L 13-40 9805937448) eGFR Calculation mL/min/1.73m2 (Non-) (test code = 1390288704) eGFR Calculation mL/min/1.73m2 () (test code = 5105094666) ALYSSA (test code = ALYSSA) Association of [...] tests). Lab Interpretation Abnormal (test code = 79108-1) [facility] METABOLIC PANEL (30609)2020-03-23 00:03:00 Test Item Value Reference Range Interpretation Comments NA (test code = 138 mmol/L 135-145 1051536554) K (test code = 4.1 mmol/L 3.5-5 4996786931) CL (test code = 103 mmol/L 98-108 0045557578) CO2 TOTAL (test code = 26 mmol/L 23-31 4149612474) AGAP (test code = 2-16 9035168680) BUN (test code = 18 mg/dL 7-23 8493623747) GLUCOSE (test code = 157 mg/dL 70-110 H 4596948643) CREATININE (test code = 1.19 mg/dL 0.6-1.25 0259146748) TOTAL BILI (test code = 1.1 mg/dL 0.1-1.9 7633984671) CALCIUM (test code = 9.2 mg/dL 8.6-10.6 4020680163) T PROTEIN (test code = 6.8 g/dL 6.3-8.2 4355557156) ALBUMIN (test code = 4.0 g/dL 3.5-5 6528338575) ALK PHOS (test code = 51 U/L 34-122 4047047231) ALTv (test code = 16 U/L 5-50 1742-6) AST(SGOT) (test code = 23 U/L 13-40 8836650709) eGFR Calculation mL/min/1.73m2 (Non-) (test code = 0957618386) eGFR Calculation mL/min/1.73m2 () (test code = 2691426383) ALYSSA (test code = ALYSSA) Association of [...] tests). Lab Interpretation Abnormal (test code = 24549-3) [facility] WITH [id number] 23:57:00 Test Item Value Reference Range Interpretation [...] RDW-SD (test code = 49.6 fL 38.5-51.6 82456-3) RDW-CV (test code = 14.6 % 12.1-15.4 788-0) PLT (test code = See_Comment L [Automated 777-3) message] The sy stem which generated this result transmitted reference range : 150 - 328 10*3/ ?L. The reference r corey was not used to interpret this result as normal/abnormal . MPV (test code = 9.9 fL 9.8-13 98558-0) NRBC/100 WBC (test See_Comment [Automat ed code = 9496404385) message] The system which generated this result transmitted reference range : 0.0 - 10.0 /100 WBCs. The refer ence range was not u sed to interpret th is result as normal/abnormal . NRBC x10^3 (test code <0.01 See_Comment [Auto mated = 1492274406) message] The s ystem which generated this result transmitted reference range : 10*3/?L. The reference range was not used to interpret this result as normal/abnormal . GRAN MAT (NEUT) % 55.3 % (test code = 770-8) IMM GRAN % (test code 0.20 % = 8261790449) LYMPH % (test code = 28.3 % 736-9) MONO % (test code = 12.6 % 5905-5) EOS % (test code = 3.1 % 713-8) BASO % (test code = 0.5 % 706-2) GRAN MAT x10^3(ANC) 3.20 10*3/uL 1.99-6.95 (test code = 4381992470) IMM GRAN x10^3 (test <0.03 0-0.06 code = 8544675492) LYMPH x10^3 (test code 1.64 10*3/uL 1.09-3.23 = 731-0) MONO x10^3 (test code 0.73 10*3/uL 0.36-1.02 = 742-7) EOS x10^3 (test code = 0.18 10*3/uL 0.06-0.53 711-2) BASO x10^3 (test code 0.03 10*3/uL 0.01-0.09 = 704-7) Lab Interpretation Abnormal (test code = 00987-5) [facility] WITH [id number] 23:57:00 Test Item Value Reference Range Interpretation [...] RDW-SD (test code = 49.6 fL 38.5-51.6 74471-5) RDW-CV (test code = 14.6 % 12.1-15.4 788-0) PLT (test code = See_Comment L [Automated 777-3) message] The sy stem which generated this result transmitted reference range : 150 - 328 10*3/ ?L. The reference r corey was not used to interpret this result as normal/abnormal . MPV (test code = 9.9 fL 9.8-13 93663-4) NRBC/100 WBC (test See_Comment [Automat ed code = 5652285754) message] The system which generated this result transmitted reference range : 0.0 - 10.0 /100 WBCs. The refer ence range was not u sed to interpret th is result as normal/abnormal . NRBC x10^3 (test code <0.01 See_Comment [Auto mated = 0958250416) message] The s ystem which generated this result transmitted reference range : 10*3/?L. The reference range was not used to interpret this result as normal/abnormal . GRAN MAT (NEUT) % 55.3 % (test code = 770-8) IMM GRAN % (test code 0.20 % = 9973110490) LYMPH % (test code = 28.3 % 736-9) MONO % (test code = 12.6 % 5905-5) EOS % (test code = 3.1 % 713-8) BASO % (test code = 0.5 % 706-2) GRAN MAT x10^3(ANC) 3.20 10*3/uL 1.99-6.95 (test code = 7292190927) IMM GRAN x10^3 (test <0.03 0-0.06 code = 0536313470) LYMPH x10^3 (test code 1.64 10*3/uL 1.09-3.23 = 731-0) MONO x10^3 (test code 0.73 10*3/uL 0.36-1.02 = 742-7) EOS x10^3 (test code = 0.18 10*3/uL 0.06-0.53 711-2) BASO x10^3 (test code 0.03 10*3/uL 0.01-0.09 = 704-7) Lab Interpretation Abnormal (test code = 08482-3) [facility] [id number] 21:48:00 Test Item Value Reference Range Interpretation Comments SARS-CoV-2 (test code = Not Detected Not Detected 64861-8) ALYSSA (test code = ALYSSA) ID NOW COVID-19 Assay is an isothermal nucleic acid amplification test intended for the qualitative detection of nucleic acid from SARS-CoV-2 viral RNA in nasopharyngeal (ADVERTISING STATISTICAL CLERK) specimens. It is used under Emergency Use [...] indicated. Lab Interpretation Normal (test code = 74011-4) [facility] Paso[facility]roponin [id number] 21:44:00 Test Item Value Reference Range Interpretation Comments TROPONIN I (test 0.027 ng/mL See_Comment [Automated code = 4619992829) message] The system which generated this result [...] ? Lab Interpretation Normal (test code = 43485-4) [facility] PasoProthrombin Time (PT) / [id number] 21:41:00 Test Item Value Reference Range Interpretation Comments PROTIME PATIENT (test See_Comment [Auto mated message] code = 5964-2) The system [employer] generated this result transmitted ref erence range: 12.0 - 1 4.7 Seconds. The re ference range was not u sed to interpret this result as normal/abnor mal. INR (test code = 6301-6) Nor mal INR <1.1; Warfarin Therap eutic range 2.0 to 3. 0 or 2.5 to 3.5, dep ending upon the indica tions. Lab Interpretation (test Normal code = 37286-6) [facility] [id number] 21:39:00 Test Item Value Reference Range Interpretation Comments NT-proBNP (test code 663 pg/mL See_Comment H [Autom ated = 5755083353) message] The system which generated this result transmitted reference range : <=450. The reference range was not used to interpret this result as normal/abnormal . ALYSSA (test code = ALYSSA) Biotin has been reported to cause a negative bias, interpret results relative to patient's use of biotin. Lab Interpretation Abnormal (test code = 24128-9) [facility]. METABOLIC PANEL (14192)2020-03-21 21:37:00 Test Item Value Reference Range Interpretation Comments NA (test code = 139 mmol/L 135-145 9093672262) K (test code = 4.1 mmol/L 3.5-5 4001972804) CL (test code = 102 mmol/L 98-108 2609292146) CO2 TOTAL (test code = 29 mmol/L 23-31 6200208960) AGAP (test code = 2-16 4852589289) BUN (test code = 18 mg/dL 7-23 1978994926) GLUCOSE (test code = 277 mg/dL 70-110 H 8510328013) CREATININE (test code = 1.23 mg/dL 0.6-1.25 1515902150) TOTAL BILI (test code = 1.3 mg/dL 0.1-1.1 H 2902949363) CALCIUM (test code = 9.8 mg/dL 8.6-10.6 6329884397) T PROTEIN (test code = 7.0 g/dL 6.3-8.2 6657088921) ALBUMIN (test code = 4.2 g/dL 3.5-5 5634300664) ALK PHOS (test code = 50 U/L 34-122 4473339983) ALTv (test code = 15 U/L 5-50 1742-6) AST(SGOT) (test code = 22 U/L 13-40 1719499181) eGFR Calculation mL/min/1.73m2 (Non-) (test code = 7372865222) eGFR Calculation mL/min/1.73m2 () (test code = 5345407235) ALYSSA (test code = ALYSSA) Association of [...] tests). Lab Interpretation Abnormal (test code = 46420-5) [facility] PasoLipase [id number] 21:37:00 Test Item Value Reference Range Interpretation Comments LIPASE (test code = 0629480685) 161 U/L 0-220 Lab Interpretation (test code = Normal 11653-0) [facility] 1 [id number] 20:46:31HISTORY: Chest pain. TECHNIQUE: Portable AP view of the chest is obtained. Comparison made with03/04/2020 study. FINDINGS: No acute pneumonia. No pneumothorax or pleural effusion orpulmonary congestion detected. Mild cardiomegaly and intrathecal electrodesin lower thoracic spinal canal noted. Mild thoracolumbar scoliosis noted. CONCLUSIONS: Mild cardiomegaly.Txmb, Radiant Results Inft User - 03/21/2020 3:47 PM CDTHISTORY: Chest pain.TECHNIQUE: Portable AP view of the chest is obtained. Comparison made with03/04/2020 study.FINDINGS: No acute pneumonia. No pneumothorax or pleural effusion orpulmonary congestion detected. Mild cardiomegaly and intrathecal electrodesin lower thoracic spinal canal noted.Mild thoracolumbar scoliosis noted.CONCLUSIONS: Mild cardiomegaly. [facility] PasoLaneic Acid Whole [id number] 20:43:00 Test Item Value Reference Range Interpretation Comments LACTIC ACID (test code = 1.91 mmol/L 0.3-2.6 6929755655) [facility] GLUCOSE (AUTOMATED)2020-03-07 20:58:00 Test Item Value Reference Range Interpretation Comments POCT GLU (test code = 9720328604) 216 mg/dL 70-110 H Lab Interpretation (test code = Abnormal 24228-7) [facility] GLUCOSE (AUTOMATED)2020-03-07 16:00:00 Test Item Value Reference Range Interpretation Comments POCT GLU (test code = 1891140547) 168 mg/dL 70-110 H Lab Interpretation (test code = Abnormal 13937-6) [facility] GLUCOSE (AUTOMATED)2020-03-07 13:07:00 Test Item Value Reference Range Interpretation Comments POCT GLU (test code = 1485887387) 148 mg/dL 70-110 H Lab Interpretation (test code = Abnormal 34202-1) [facility] PasoTROPONIN [id number] 11:27:00 Test Item Value Reference Range Interpretation Comments TROPONIN I (test 0.051 ng/mL See_Comment H [Automated code = 2971873478) message] The system which generated this result [...] ? Lab Interpretation Abnormal (test code = 12930-4) [facility] [id number] 11:24:00 Test Item Value Reference Range Interpretation Comments NT-proBNP (test code 336 pg/mL See_Comment [Autom ated = 1982615550) message] The system which generated this result transmitted reference range : <=450. The reference range was not used to interpret this result as normal/abnormal . ALYSSA (test code = ALYSSA) Biotin has been reported to cause a negative bias, interpret results relative to patient's use of biotin. Lab Interpretation Normal (test code = 66926-0) [facility] (NA, K, CL, CO2, GLUCOSE, BUN, CREATININE, CA)2020-03-07 11:14:00 Test Item Value Reference Range Interpretation Comments NA (test code = 138 mmol/L 135-145 1113446354) K (test code = 3.8 mmol/L 3.5-5 4524372544) CL (test code = 97 mmol/L 98-108 L 6089095884) CO2 TOTAL (test code = 30 mmol/L 23-31 2553244685) AGAP (test code = 2-16 5417973058) BUN (test code = 36 mg/dL 7-23 H 3953851863) GLUCOSE (test code = 140 mg/dL 70-110 H 2027083629) CREATININE (test code = 1.50 mg/dL 0.6-1.25 H 7415876074) CALCIUM (test code = 10.0 mg/dL 8.6-10.6 4899656795) eGFR Calculation mL/min/1.73m2 (Non-) (test code = 9038948138) eGFR Calculation mL/min/1.73m2 () (test code = 7671135658) ALYSSA (test code = ALYSSA) Association of [...] tests). Lab Interpretation Abnormal (test code = 83941-8) [facility] PasoURIC [id number] 11:14:00 Test Item Value Reference Range Interpretation Comments URIC ACID (test code = 6594681689) 5.4 mg/dL 3.6-8 Lab Interpretation (test code = Normal 10959-6) [facility] WITH [id number] 10:53:00 Test Item Value Reference Range Interpretation [...] RDW-SD (test code = 45.1 fL 38.5-51.6 93724-9) RDW-CV (test code = 14.2 % 12.1-15.4 788-0) PLT (test code = See_Comment [Automated 777-3) message] The sy stem which generated this result transmitted reference range : 150 - 328 10*3/ ?L. The reference r corey was not used to interpret this result as normal/abnormal . MPV (test code = 9.8 fL 9.8-13 64228-6) NRBC/100 WBC (test See_Comment [Automat ed code = 1399184779) message] The system which generated this result transmitted reference range : 0.0 - 10.0 /100 WBCs. The refer ence range was not u sed to interpret th is result as normal/abnormal . NRBC x10^3 (test code <0.01 See_Comment [Auto mated = 1258117857) message] The s ystem which generated this result transmitted reference range : 10*3/?L. The reference range was not used to interpret this result as normal/abnormal . GRAN MAT (NEUT) % 51.0 % (test code = 770-8) IMM GRAN % (test code 0.50 % = 9210596861) LYMPH % (test code = 32.0 % 736-9) MONO % (test code = 11.3 % 5905-5) EOS % (test code = 4.3 % 713-8) BASO % (test code = 0.9 % 706-2) GRAN MAT x10^3(ANC) 2.85 10*3/uL 1.99-6.95 (test code = 8505535172) IMM GRAN x10^3 (test 0.03 10*3/uL 0-0.06 code = 4097813766) LYMPH x10^3 (test code 1.79 10*3/uL 1.09-3.23 = 731-0) MONO x10^3 (test code 0.63 10*3/uL 0.36-1.02 = 742-7) EOS x10^3 (test code = 0.24 10*3/uL 0.06-0.53 711-2) BASO x10^3 (test code 0.05 10*3/uL 0.01-0.09 = 704-7) Lab Interpretation Abnormal (test code = 58797-3) [facility] GLUCOSE (AUTOMATED)2020-03-06 22:46:00 Test Item Value Reference Range Interpretation Comments POCT GLU (test code = 1711058225) 209 mg/dL 70-110 H Lab Interpretation (test code = Abnormal 68489-1) [facility] GLUCOSE (AUTOMATED)2020-03-06 16:23:00 Test Item Value Reference Range Interpretation Comments POCT GLU (test code = 7316871081) 254 mg/dL 70-110 H Lab Interpretation (test code = Abnormal 99084-8) [facility] GLUCOSE (AUTOMATED)2020-03-06 12:51:00 Test Item Value Reference Range Interpretation Comments POCT GLU (test code = 9763565928) 126 mg/dL 70-110 H Lab Interpretation (test code = Abnormal 80242-5) [facility] Paso[facility]OPONIN [id number] 10:16:00 Test Item Value Reference Range Interpretation Comments TROPONIN I (test 0.056 ng/mL See_Comment H [Automated code = 2318214554) message] The system which generated this result [...] ? Lab Interpretation Abnormal (test code = 70480-8) [facility] Metabolic Panel (NA, K, CL, CO2, GLUCOSE, BUN, CREATININE, CA)2020-03-06 10:13:00 Test Item Value Reference Range Interpretation Comments NA (test code = 136 mmol/L 135-145 4108327770) K (test code = 4.1 mmol/L 3.5-5 9552302319) CL (test code = 95 mmol/L 98-108 L 5458969727) CO2 TOTAL (test code = 30 mmol/L 23-31 6491242042) AGAP (test code = 2-16 7277789191) BUN (test code = 35 mg/dL 7-23 H 6963085691) GLUCOSE (test code = 174 mg/dL 70-110 H 1618588760) CREATININE (test code = 1.67 mg/dL 0.6-1.25 H 9743485171) CALCIUM (test code = 9.7 mg/dL 8.6-10.6 3365621139) eGFR Calculation mL/min/1.73m2 (Non-) (test code = 3396954198) eGFR Calculation mL/min/1.73m2 () (test code = 6099764071) ALYSSA (test code = ALYSSA) Association of [...] tests). Lab Interpretation Abnormal (test code = 14885-9) [facility] WITH [id number] 09:16:00 Test Item Value Reference Range Interpretation [...] RDW-SD (test code = 45.6 fL 38.5-51.6 81568-3) RDW-CV (test code = 14.3 % 12.1-15.4 788-0) PLT (test code = See_Comment [Automated 777-3) message] The sy stem which generated this result transmitted reference range : 150 - 328 10*3/ ?L. The reference r corey was not used to interpret this result as normal/abnormal . MPV (test code = 9.8 fL 9.8-13 34470-0) NRBC/100 WBC (test See_Comment [Automat ed code = 8772867178) message] The system which generated this result transmitted reference range : 0.0 - 10.0 /100 WBCs. The refer ence range was not u sed to interpret th is result as normal/abnormal . NRBC x10^3 (test code <0.01 See_Comment [Auto mated = 0306366915) message] The s ystem which generated this result transmitted reference range : 10*3/?L. The reference range was not used to interpret this result as normal/abnormal . GRAN MAT (NEUT) % 56.1 % (test code = 770-8) IMM GRAN % (test code 0.10 % = 2522120631) LYMPH % (test code = 29.7 % 736-9) MONO % (test code = 9.6 % 5905-5) EOS % (test code = 3.8 % 713-8) BASO % (test code = 0.7 % 706-2) GRAN MAT x10^3(ANC) 3.79 10*3/uL 1.99-6.95 (test code = 0276463114) IMM GRAN x10^3 (test <0.03 0-0.06 code = 8571008544) LYMPH x10^3 (test code 2.01 10*3/uL 1.09-3.23 = 731-0) MONO x10^3 (test code 0.65 10*3/uL 0.36-1.02 = 742-7) EOS x10^3 (test code = 0.26 10*3/uL 0.06-0.53 711-2) BASO x10^3 (test code 0.05 10*3/uL 0.01-0.09 = 704-7) Lab Interpretation Abnormal (test code = 43352-9) [facility] GLUCOSE (AUTOMATED)2020-03-06 01:25:00 Test Item Value Reference Range Interpretation Comments POCT GLU (test code = 1634507711) 208 mg/dL 70-110 H Lab Interpretation (test code = Abnormal 57659-7) [facility] [id number] 00:08:00 Test Item Value Reference Range Interpretation Comments TROPONIN I (test 0.047 ng/mL See_Comment H [Automated code = 1812717202) message] The system which generated this result [...] ? Lab Interpretation Abnormal (test code = 56548-8) [facility] GLUCOSE (AUTOMATED)2020-03-05 21:19:00 Test Item Value Reference Range Interpretation Comments POCT GLU (test code = 0587084031) 234 mg/dL 70-110 H Lab Interpretation (test code = Abnormal 59752-7) [facility] GLUCOSE (AUTOMATED)2020-03-05 16:55:00 Test Item Value Reference Range Interpretation Comments POCT GLU (test code = 6363223925) 258 mg/dL 70-110 H Lab Interpretation (test code = Abnormal 16693-5) [facility]2020-[facility]-05 12:59:00 Test Item Value Reference Range Interpretation Comments POCT GLU (test code = 8878212256) 194 mg/dL 70-110 H Lab Interpretation (test code = Abnormal 71604-2) [facility] [id number] 10:54:00 Test Item Value Reference Range Interpretation Comments TROPONIN I (test 0.071 ng/mL See_Comment H [Automated code = 2736384936) message] The system which generated this result [...] ? Lab Interpretation Abnormal (test code = 47320-0) [facility] (NA, K, CL, CO2, GLUCOSE, BUN, CREATININE, CA)2020-03-05 10:43:00 Test Item Value Reference Range Interpretation Comments NA (test code = 139 mmol/L 135-145 6313560390) K (test code = 4.1 mmol/L 3.5-5 8472770597) CL (test code = 101 mmol/L 98-108 3971723581) CO2 TOTAL (test code = 27 mmol/L 23-31 5509619601) AGAP (test code = 2-16 4482193717) BUN (test code = 25 mg/dL 7-23 H 3294039381) GLUCOSE (test code = 243 mg/dL 70-110 H 0830946334) CREATININE (test code = 1.22 mg/dL 0.6-1.25 5840628393) CALCIUM (test code = 9.8 mg/dL 8.6-10.6 2491879604) eGFR Calculation mL/min/1.73m2 (Non-) (test code = 1082919998) eGFR Calculation mL/min/1.73m2 () (test code = 1745257233) ALYSSA (test code = ALYSSA) Association of [...] tests). Lab Interpretation Abnormal (test code = 02157-1) [facility] WITH [id number] 10:23:00 Test Item Value Reference Range Interpretation Comments WBC (test code = See_Comment [Automated message] 6690-2) The system [employer] generated this result transmitted ref erence range: 4.20 - 1 0.70 10*3/?L. The re ference range was not u sed to interpret this result as normal/abnor mal. RBC (test code = See_Comment [Automated message] 789-8) The system [employer] generated this result transmitted ref erence range: [...] RDW-SD (test code 47.8 fL 38.5-51.6 = 18799-8) RDW-CV (test code 14.4 % 12.1-15.4 = 788-0) PLT (test code = See_Comment [Automated message] 777-3) The system [employer] generated this result transmitted ref erence range: 150 - 32 8 10*3/?L. The re ference range was not u sed to interpret this result as normal/abnor mal. MPV (test code = 9.8 fL 9.8-13 43171-5) NRBC/100 WBC (test See_Comment [Automat ed message] code = 4108225426) The [email or web address] [email or web address] which generated this result transmitted ref erence range: 0.0 - 10 .0 /100 WBCs. The refer ence range was not u sed to interpret this result as normal/abnor mal. NRBC x10^3 (test <0.01 See_Comment [Automated message] code = 8940933625) The syste m which generated this result transmitted ref erence range: 10*3/?L. The reference range was not used to interpr et this result as normal/abnormal . GRAN MAT (NEUT) % 48.8 % (test code = 770-8) IMM GRAN % (test 0.20 % code = 9032120914) LYMPH % (test code 34.7 % = 736-9) MONO % (test code 10.8 % = 5905-5) EOS % (test code = 4.9 % 713-8) BASO % (test code 0.6 % = 706-2) GRAN MAT 2.49 10*3/uL 1.99-6.95 x10^3(ANC) (test code = 1941738087) IMM GRAN x10^3 <0.03 0-0.06 (test code = 7476037288) LYMPH x10^3 (test 1.77 10*3/uL 1.09-3.23 code = 731-0) MONO x10^3 (test 0.55 10*3/uL 0.36-1.02 code = 742-7) EOS x10^3 (test 0.25 10*3/uL 0.06-0.53 code = 711-2) BASO x10^3 (test 0.03 10*3/uL 0.01-0.09 code = 704-7) [facility] Paso[facility] CHEST 1 [id number] 03:06:08 No acute cardiopulmonary process. Unchanged enlargement [...] reviewed this study and agree with the abovereport.[facility] PasoCORONAVIRUS COVID-19 [id number] 00:34:00 Test Item Value Reference Range Interpretation Comments SARS-CoV-2 (test code = Not Detected Not Detected 25897-5) ALYSSA (test code = ALYSSA) ID NOW COVID-19 Assay is an isothermal nucleic acid amplification test intended for the qualitative detection of nucleic acid from SARS-CoV-2 viral RNA in nasopharyngeal (ADVERTISING STATISTICAL CLERK) specimens. It is used under Emergency Use [...] indicated. Lab Interpretation Normal (test code = 48039-9) [facility] Paso[facility]roponin [id number] 00:08:00 Test Item Value Reference Range Interpretation Comments TROPONIN I (test 0.056 ng/mL See_Comment H [Automated code = 0611240526) message] The system which generated this result [...] ? Lab Interpretation Abnormal (test code = 26298-5) [facility] Paso[facility]-TERMINAL [id number] 00:04:00 Test Item Value Reference Range Interpretation Comments NT-proBNP (test code 562 pg/mL See_Comment H [Autom ated = 6724187296) message] The system which generated this result transmitted reference range : <=450. The reference range was not used to interpret this result as normal/abnormal . ALYSSA (test code = ALYSSA) Biotin has been reported to cause a negative bias, interpret results relative to patient's use of biotin. Lab Interpretation Abnormal (test code = 65728-3) [facility] PasoProthrombin Time (PT) / [id number] 23:57:00 Test Item Value Reference Range Interpretation [...] tions. Lab Interpretation (test Normal code = 50866-5) [facility] PasoB[facility] Metabolic Panel (NA, K, CL, CO2, GLUCOSE, BUN, CREATININE, CA)2020-03-04 23:56:00 Test Item Value Reference Range Interpretation Comments NA (test code = 139 mmol/L 135-145 2862283569) K (test code = 4.1 mmol/L 3.5-5 0448822709) CL (test code = 102 mmol/L 98-108 7313464577) CO2 TOTAL (test code = 29 mmol/L 23-31 2379688288) AGAP (test code = 2-16 1196822768) BUN (test code = 23 mg/dL 7-23 1670281441) GLUCOSE (test code = 193 mg/dL 70-110 H 0946694302) CREATININE (test code = 1.25 mg/dL 0.6-1.25 9121146699) CALCIUM (test code = 9.7 mg/dL 8.6-10.6 8478760161) eGFR Calculation mL/min/1.73m2 (Non-) (test code = 4298793463) eGFR Calculation mL/min/1.73m2 () (test code = 9495596111) ALYSSA (test code = ALYSSA) Association of [...] tests). Lab Interpretation Abnormal (test code = 54868-0) [facility] Paso[facility]atic Function Panel (ALB, T.PRO, BILI T, BU/BC, ALT, AST, ALK PHOS)2020-03-04 23:56:00 Test Item Value Reference Range Interpretation Comments TOTAL BILI (test code = 2433828045) 1.1 mg/dL 0.1-1.1 BILI UNCON (test code = 2178774161) 1.1 mg/dL 0.1-1.1 BILI CONJ (test code = 2731741990) 0.0 mg/dL 0-0.3 T PROTEIN (test code = 9744101974) 7.1 g/dL 6.3-8.2 ALBUMIN (test code = 5574168059) 4.1 g/dL 3.5-5 ALK PHOS (test code = 5560916663) 61 U/L 34-122 ALTv (test code = 1742-6) 16 U/L 5-50 AST(SGOT) (test code = 4075885962) 23 U/L 13-40 Lab Interpretation (test code = Normal 40135-8) [facility] PasoLipase [id number] 23:56:00 Test Item Value Reference Range Interpretation Comments LIPASE (test code = 6754335027) 149 U/L 0-220 Lab Interpretation (test code = Normal 31366-9) [facility] PasoaPTT2020-04-19 23:56:00 Test Item Value Reference Range Interpretation Comments APTT Patient (test See_Comment [Automat ed code = 3173-2) message] The system which generated this result transmitted reference range : 23 - 38 Seconds . The reference range was not used to interpr et this result as normal/abnormal . ALYSSA (test code = ALYSSA) The [facility] patient population mean normal value for aPTT is 30 seconds. Lab Interpretation Normal (test code = 76399-9) [facility] PasoCBC WITH [id number] 23:46:00 Test Item Value Reference Range Interpretation Comments WBC (test code = See_Comment [Automated 6090-2) message] The sy stem which generated this [...] RDW-SD (test code = 48.3 fL 38.5-51.6 27114-2) RDW-CV (test code = 14.7 % 12.1-15.4 788-0) PLT (test code = See_Comment [Automated 777-3) message] The sy stem which generated this result transmitted reference range : 150 - 328 10*3/ ?L. The reference r corey was not used to interpret this result as normal/abnormal . MPV (test code = 9.8 fL 9.8-13 48351-3) NRBC/100 WBC (test See_Comment [Automat ed code = 5607685471) message] The system which generated this result transmitted reference range : 0.0 - 10.0 /100 WBCs. The refer ence range was not u sed to interpret th is result as normal/abnormal . NRBC x10^3 (test code <0.01 See_Comment [Auto mated = 9980823511) message] The s ystem which generated this result transmitted reference range : 10*3/?L. The reference range was not used to interpret this result as normal/abnormal . GRAN MAT (NEUT) % 60.1 % (test code = 770-8) IMM GRAN % (test code 0.20 % = 4620933645) LYMPH % (test code = 26.4 % 736-9) MONO % (test code = 9.9 % 5905-5) EOS % (test code = 2.8 % 713-8) BASO % (test code = 0.6 % 706-2) GRAN MAT x10^3(ANC) 3.17 10*3/uL 1.99-6.95 (test code = 1822776623) IMM GRAN x10^3 (test <0.03 0-0.06 code = 0286117648) LYMPH x10^3 (test code 1.39 10*3/uL 1.09-3.23 = 731-0) MONO x10^3 (test code 0.52 10*3/uL 0.36-1.02 = 742-7) EOS x10^3 (test code = 0.15 10*3/uL 0.06-0.53 711-2) BASO x10^3 (test code 0.03 10*3/uL 0.01-0.09 = 704-7) Lab Interpretation Abnormal (test code = 65702-0) [facility] GLUCOSE (AUTOMATED)2020-03-02 16:04:00 Test Item Value Reference Range Interpretation Comments POCT GLU (test code = 1779151732) 214 mg/dL 70-110 H Lab Interpretation (test code = Abnormal 69625-4) [facility] GLUCOSE (AUTOMATED)2020-03-02 16:04:00 Test Item Value Reference Range Interpretation Comments POCT GLU (test code = 7504035920) 271 mg/dL 70-110 H Lab Interpretation (test code = Abnormal 36507-8) [facility] PasoN-TERMINAL [id number] 09:43:00 Test Item Value Reference Range Interpretation Comments NT-proBNP (test code 1670 pg/mL See_Comment H [Autom ated = 6030654342) message] The system which generated this result transmitted reference range : <=450. The reference range was not used to interpret this result as normal/abnormal . ALYSSA (test code = ALYSSA) Biotin has been reported to cause a negative bias, interpret results relative to patient's use of biotin. Lab Interpretation Abnormal (test code = 58572-8) [facility] METABOLIC PANEL (NA, K, CL, CO2, GLUCOSE, BUN, CREATININE, CA)2020-03-02 09:33:00 Test Item Value Reference Range Interpretation Comments NA (test code = 143 mmol/L 135-145 6879209603) K (test code = 3.8 mmol/L 3.5-5 8261106603) CL (test code = 105 mmol/L 98-108 0719913493) CO2 TOTAL (test code = 28 mmol/L 23-31 5300451091) AGAP (test code = 2-16 1997913796) BUN (test code = 19 mg/dL 7-23 5022118216) GLUCOSE (test code = 152 mg/dL 70-110 H 3442241261) CREATININE (test code = 1.18 mg/dL 0.6-1.25 4032200635) CALCIUM (test code = 9.0 mg/dL 8.6-10.6 7154885310) eGFR Calculation mL/min/1.73m2 (Non-) (test code = 1902931059) eGFR Calculation mL/min/1.73m2 () (test code = 4082956963) ALYSSA (test code = ALYSSA) Association of [...] tests). Lab Interpretation Abnormal (test code = 57876-6) [facility] PasoMAGNESIUM2020-04-17 09:33:00 Test Item Value Reference Range Interpretation Comments MAGNESIUM (test code = 3813208239) 1.8 mg/dL 1.7-2.4 Lab Interpretation (test code = Normal 54317-2) [facility]ATED[facility]2020-03-01 20:42:00 Test Item Value Reference Range Interpretation Comments POCT GLU (test code = 4573971600) 231 mg/dL 70-110 H Lab Interpretation (test code = Abnormal 53321-6) [facility] PasoVITAMIN B12, [id number] 11:51:00 Test Item Value Reference Range Interpretation Comments VIT B12 (test code = 325 pg/mL 240-930 7297975915) ALYSSA (test code = ALYSSA) Biotin has been reported to cause a positive bias, interpret results relative to patient's use of biotin. Lab Interpretation (test Normal code = 56921-5) [facility] PasoFOLATE2020-04-16 11:49:00 Test Item Value Reference Range Interpretation Comments FOLATE SER (test code = >20.0 3-20 H Slig ht hemolysis 4310381687) Lab Interpretation (test Abnormal code = 45293-9) [facility] PasoPROCALCITONIN2020-04-16 10:49:00 Test Item Value Reference Range Interpretation Comments Procalcitonin (test 3.05 ng/mL <0.07 H code = 8188959254) ALYSSA (test code = ALYSSA) INTERPRETATION OF [...] lung abscess/empyema. For further information please refer to:[email or web address] Lab Interpretation Abnormal (test code = 67741-3) [facility] PasoWENDY [id number] 09:58:00 Test Item Value Reference Range Interpretation Comments TROPONIN I (test 0.093 ng/mL See_Comment H [Automated code = 4128395267) message] The system which generated this result [...] ? Lab Interpretation Abnormal (test code = 72280-7) [facility] PasoN-TERMINAL [id number] 09:55:00 Test Item Value Reference Range Interpretation Comments NT-proBNP (test code 4450 pg/mL See_Comment H [Autom ated = 4914678132) message] The system which generated this result transmitted reference range : <=450. The reference range was not used to interpret this result as normal/abnormal . ALYSSA (test code = ALYSSA) Biotin has been reported to cause a negative bias, interpret results relative to patient's use of biotin. Lab Interpretation Abnormal (test code = 69783-4) [facility] PasoBasi Metabolic Panel (NA, K, CL, CO2, GLUCOSE, BUN, CREATININE, CA)2020-03-01 09:50:00 Test Item Value Reference Range Interpretation Comments NA (test code = 141 mmol/L 135-145 0627357945) K (test code = 3.5 mmol/L 3.5-5 2622356906) CL (test code = 105 mmol/L 98-108 6805730692) CO2 TOTAL (test code = 26 mmol/L 23-31 8494027131) AGAP (test code = 2-16 4927491498) BUN (test code = 13 mg/dL 7-23 3406422662) GLUCOSE (test code = 219 mg/dL 70-110 H 4381820175) CREATININE (test code = 1.01 mg/dL 0.6-1.25 3484973134) CALCIUM (test code = 8.7 mg/dL 8.6-10.6 4804043350) eGFR Calculation mL/min/1.73m2 (Non-) (test code = 0846647137) eGFR Calculation mL/min/1.73m2 () (test code = 0634868180) ALYSSA (test code = ALYSSA) Association of [...] tests). Lab Interpretation Abnormal (test code = 40541-5) [facility] [id number] 09:50:00 Test Item Value Reference Range Interpretation Comments MAGNESIUM (test code = 9340998886) 1.9 mg/dL 1.7-2.4 Lab Interpretation (test code = Normal 19361-7) [facility] WITH [id number] 09:22:00 Test Item Value Reference Range Interpretation [...] RDW-SD (test code = 47.8 fL 38.5-51.6 88993-3) RDW-CV (test code = 14.8 % 12.1-15.4 788-0) PLT (test code = See_Comment L [Automated 777-3) message] The sy stem which generated this result transmitted reference range : 150 - 328 10*3/ ?L. The reference r corey was not used to interpret this result as normal/abnormal . MPV (test code = 9.9 fL 9.8-13 70816-0) NRBC/100 WBC (test See_Comment [Automat ed code = 9450414656) message] The system which generated this result transmitted reference range : 0.0 - 10.0 /100 WBCs. The refer ence range was not u sed to interpret th is result as normal/abnormal . NRBC x10^3 (test code <0.01 See_Comment [Auto mated = 9861467392) message] The s ystem which generated this result transmitted reference range : 10*3/?L. The reference range was not used to interpret this result as normal/abnormal . GRAN MAT (NEUT) % 66.0 % (test code = 770-8) IMM GRAN % (test code 0.30 % = 1234371798) LYMPH % (test code = 20.8 % 736-9) MONO % (test code = 9.5 % 5905-5) EOS % (test code = 2.8 % 713-8) BASO % (test code = 0.6 % 706-2) GRAN MAT x10^3(ANC) 4.44 10*3/uL 1.99-6.95 (test code = 3844848246) IMM GRAN x10^3 (test <0.03 0-0.06 code = 7926330516) LYMPH x10^3 (test code 1.40 10*3/uL 1.09-3.23 = 731-0) MONO x10^3 (test code 0.64 10*3/uL 0.36-1.02 = 742-7) EOS x10^3 (test code = 0.19 10*3/uL 0.06-0.53 711-2) BASO x10^3 (test code 0.04 10*3/uL 0.01-0.09 = 704-7) Lab Interpretation Abnormal (test code = 83297-7) [facility] PasoGLYCOSYLATED HEMOGLOBIN (A1C)2020-03-01 06:49:00 Test Item Value Reference [...] Indicated Lab Interpretation Abnormal (test code = 08187-7) [facility] PasoURIC [id number] 06:25:00 Test Item Value Reference Range Interpretation Comments URIC ACID (test code = 6490875161) 2.3 mg/dL 3.6-8 L Lab Interpretation (test code = Abnormal 38232-9) [facility] PasoSEDIMENTATION [id number] 05:25:00 Test Item Value Reference Range Interpretation Comments ESR (test code = See_Comment H [Automated message] 0514078723) The system [employer] h generated this result transmitted ref erence range: 0 - 10 m m/HR. The reference r corey was not used to interpret this result as normal/abnor mal. Lab Interpretation (test Abnormal code = 06861-3) [facility] PasoN-TERMINAL [id number] 04:07:00 Test Item Value Reference Range Interpretation Comments NT-proBNP (test code 4080 pg/mL See_Comment H [Autom ated = 7081131001) message] The system which generated this result transmitted reference range : <=450. The reference range was not used to interpret this result as normal/abnormal . ALYSSA (test code = ALYSSA) Biotin has been reported to cause a negative bias, interpret results relative to patient's use of biotin. Lab Interpretation Abnormal (test code = 62220-5) [facility]PO[facility] GLUCOSE [facility]AUTOMATED)2020-03-01 03:42:00 Test Item Value Reference Range Interpretation Comments POCT GLU (test code = 7125292785) 190 mg/dL 70-110 H Lab Interpretation (test code = Abnormal 71419-4) [facility] PasoTROPONIN [id number] 03:30:00 Test Item Value Reference Range Interpretation Comments TROPONIN I (test 0.098 ng/mL See_Comment H [Automated code = 9470146209) message] The system which generated this result [...] ? Lab Interpretation Abnormal (test code = 82941-7) [facility] PasoHEPATIC FUNCTION PANEL (44115) (ALB,T.PRO,BILI T,BU/BC,ALT,AST,ALK PHOS)2020-03-01 03:24:00 Test Item Value Reference Range Interpretation Comments TOTAL BILI (test code = 8258403369) 2.2 mg/dL 0.1-1.1 H BILI UNCON (test code = 5047321504) 2.0 mg/dL 0.1-1.1 H BILI CONJ (test code = 5861184062) 0.0 mg/dL 0-0.3 T PROTEIN (test code = 3191821843) 6.7 g/dL 6.3-8.2 ALBUMIN (test code = 0538920533) 4.0 g/dL 3.5-5 ALK PHOS (test code = 6057893635) 48 U/L 34-122 ALTv (test code = 1742-6) 18 U/L 5-50 AST(SGOT) (test code = 5787228785) 57 U/L 13-40 H Lab Interpretation (test code = Abnormal 60774-7) [facility] PasoPhosphorus [id number] 03:17:00 Test Item Value Reference Range Interpretation Comments PHOSPHORUS (test code = 3.1 mg/dL 2.5-5 Slig ht hemolysis 5515544143) Lab Interpretation (test Normal code = 40890-3) [facility] PasoPROTHROMBIN TIME / [id number] 03:08:00 Test Item Value Reference Range Interpretation Comments PROTIME PATIENT (test See_Comment [Auto mated message] code = 5964-2) The system [employer] generated this result transmitted ref erence range: 12.0 - 1 4.7 Seconds. The re ference range was not u sed to interpret this result as normal/abnor mal. INR (test code = 6301-6) Nor mal INR <1.1; Warfarin Therap eutic range 2.0 to 3. 0 or 2.5 to 3.5, dep ending upon the indica tions. Lab Interpretation (test Normal code = 41346-9) [facility] PasoCREATINE [id number] 03:01:00 Test Item Value Reference Range Interpretation Comments CK (test code = 4427216880) 68 U/L 33-194 Lab Interpretation (test code = Normal 99927-3) [facility] PasoURIC [id number] 02:41:00 Test Item Value Reference Range Interpretation Comments URIC ACID (test code = 1949780065) 2.3 mg/dL 3.6-8 L Lab Interpretation (test code = Abnormal 25077-0) [facility] PasoTHYROID STIMULATING [id number] 02:26:00 Test Item Value Reference Range Interpretation Comments TSH (test code = See_Comment [Automated message] 5082418791) The system [employer] h generated this result transmitted ref erence range: 0.45 - 4 .70 mIU/L. The refe rence range was not u sed to interpret this result as normal/abnor mal. Lab Interpretation (test Normal code = 97016-4) [facility] PasoN-TERMINAL [id number] 02:04:00 Test Item Value Reference Range Interpretation Comments NT-proBNP (test code 4390 pg/mL See_Comment H [Autom ated = 8099732706) message] The system which generated this result transmitted reference range : <=450. The reference range was not used to interpret this result as normal/abnormal . ALYSSA (test code = ALYSSA) Biotin has been reported to cause a negative bias, interpret results relative to patient's use of biotin. Lab Interpretation Abnormal (test code = 53866-4) [facility] PasoMAGNESIUM2020-04-16 02:01:00 Test Item Value Reference Range Interpretation Comments MAGNESIUM (test code = 4129404968) 1.5 mg/dL 1.7-2.4 L Lab Interpretation (test code = Abnormal 31040-5) [facility] PasoLIPASE2020-04-16 00:22:00 Test Item Value Reference Range Interpretation Comments LIPASE (test code = 3731347228) 68 U/L 0-220 Lab Interpretation (test code = Normal 00057-3) [facility] PasoCORONAVIRUS COVID-19 [id number] 23:42:00 Test Item Value Reference Range Interpretation Comments SARS-CoV-2 (test code = Not Detected Not Detected 11506-8) ALYSSA (test code = ALYSSA) ID NOW COVID-19 Assay is an isothermal nucleic acid amplification test intended for the qualitative detection of nucleic acid from SARS-CoV-2 viral RNA in nasopharyngeal (ADVERTISING STATISTICAL CLERK) specimens. It is used under Emergency Use [...] indicated. Lab Interpretation Normal (test code = 18167-8) [facility] [place]ST 1 VW [id number] 23:26:02 No acute intrathoracic abnormality, specifically no radiographic findingsto suggest COVID-19 pneumonia. Disclaimer: Generally, the findings on chest imaging in COVID-19 are notspecific, and overlap with other infections, including influenza, H1N1,SARS and MERS. According to the Centers for Disease Control (CDC) and recent statement ofthe [employer], viral testing remains the [...] Disease Control (CDC) and recent statement ofthe [employer], viral testing remains the only specificmethod of diagnosis. Confirmation with the viral test is required, even ifradiologic findings are suggestive of COVID-[address]. Preliminary Report Dictated by Resident: Radu Boo MD., have reviewed this study and agree with theabove report.[facility] [id number] 22:59:00 Test Item Value Reference Range Interpretation Comments TROPONIN I (test 0.071 ng/mL See_Comment H [Automated code = 3846712105) message] The system which generated this result [...] ? Lab Interpretation Abnormal (test code = 14198-2) [facility] Met[facility] (NA, K, CL, CO2, GLUCOSE, BUN, CREATININE, CA)2020-02-29 22:48:00 Test Item Value Reference Range Interpretation Comments NA (test code = 141 mmol/L 135-145 8097901482) K (test code = 3.2 mmol/L 3.5-5 L 7552325945) CL (test code = 104 mmol/L 98-108 3275402087) CO2 TOTAL (test code = 25 mmol/L 23-31 9480048820) AGAP (test code = 2-16 6294337393) BUN (test code = 12 mg/dL 7-23 4377025895) GLUCOSE (test code = 250 mg/dL 70-110 H 5994637405) CREATININE (test code = 1.02 mg/dL 0.6-1.25 8419971190) CALCIUM (test code = 8.9 mg/dL 8.6-10.6 0896801811) eGFR Calculation mL/min/1.73m2 (Non-) (test code = 9735635621) eGFR Calculation mL/min/1.73m2 () (test code = 4634523994) ALYSSA (test code = ALYSSA) Association of [...] tests). Lab Interpretation Abnormal (test code = 42049-9) [facility] WITH [id number] 22:41:00 Test Item Value Reference Range Interpretation [...] RDW-SD (test code = 46.6 fL 38.5-51.6 62092-1) RDW-CV (test code = 14.6 % 12.1-15.4 788-0) PLT (test code = See_Comment [Automated 777-3) message] The sy stem which generated this result transmitted reference range : 150 - 328 10*3/ ?L. The reference r corey was not used to interpret this result as normal/abnormal . MPV (test code = 9.7 fL 9.8-13 L 36419-1) NRBC/100 WBC (test See_Comment [Automat ed code = 8941312570) message] The system which generated this result transmitted reference range : 0.0 - 10.0 /100 WBCs. The refer ence range was not u sed to interpret th is result as normal/abnormal . NRBC x10^3 (test code <0.01 See_Comment [Auto mated = 0756306252) message] The s ystem which generated this result transmitted reference range : 10*3/?L. The reference range was not used to interpret this result as normal/abnormal . GRAN MAT (NEUT) % 68.6 % (test code = 770-8) IMM GRAN % (test code 0.30 % = 5043166371) LYMPH % (test code = 18.6 % 736-9) MONO % (test code = 10.1 % 5905-5) EOS % (test code = 1.8 % 713-8) BASO % (test code = 0.6 % 706-2) GRAN MAT x10^3(ANC) 4.29 10*3/uL 1.99-6.95 (test code = 7400803285) IMM GRAN x10^3 (test <0.03 0-0.06 code = 0704750167) LYMPH x10^3 (test code 1.16 10*3/uL 1.09-3.23 = 731-0) MONO x10^3 (test code 0.63 10*3/uL 0.36-1.02 = 742-7) EOS x10^3 (test code = 0.11 10*3/uL 0.06-0.53 711-2) BASO x10^3 (test code 0.04 10*3/uL 0.01-0.09 = 704-7) Lab Interpretation Abnormal (test code = 41030-3) [facility] PasoLactic Acid Whole [id number] 22:38:00 Test Item Value Reference Range Interpretation Comments LACTIC ACID (test code = 1.88 mmol/L 0.3-2.6 4493648245) [facility] GLU[facility]SE (AUTOMATED)2020-01-17 18:18:00 Test Item Value Reference Range Interpretation Comments POCT GLU (test code = 6033256522) 290 mg/dL 70-110 H Lab Interpretation (test code = Abnormal 90861-7) [facility] PasoTROPONIN [id number] 18:01:00 Test Item Value Reference Range Interpretation Comments TROPONIN I (test 0.065 ng/mL See_Comment H [Automated code = 4364271178) message] The system which generated this result [...] ? Lab Interpretation Abnormal (test code = 46264-6) [facility]oaPTT2020-03-03 17:10:00 Test Item Value Reference Range Interpretation Comments APTT Patient (test See_Comment H [Automat ed code = 3173-2) message] The system which generated this result transmitted reference range : 23 - 38 Seconds . The reference range was not used to interpr et this result as normal/abnormal . ALYSSA (test code = ALYSSA) The [facility] patient population mean normal value for aPTT is 30 seconds. Lab Interpretation Abnormal (test code = 72069-4) [facility] GLU[facility]SE [facility]AUTOMATED)2020-01-17 11:59:00 Test Item Value Reference Range Interpretation Comments POCT GLU (test code = 2512625029) 185 mg/dL 70-110 H Lab Interpretation (test code = Abnormal 36733-9) [facility] PasoTROPONIN [id number] 11:23:00 Test Item Value Reference Range Interpretation Comments TROPONIN I (test 0.073 ng/mL See_Comment H [Automated code = 7094356053) message] The system which generated this result [...] ? Lab Interpretation Abnormal (test code = 21389-9) [facility] Met[facility] (NA, K, CL, CO2, GLUCOSE, BUN, CREATININE, CA)2020-01-17 11:16:00 Test Item Value Reference Range Interpretation Comments NA (test code = 136 mmol/L 135-145 2394958021) K (test code = 3.3 mmol/L 3.5-5 L 9081886968) CL (test code = 101 mmol/L 98-108 4840513943) CO2 TOTAL (test code = 26 mmol/L 23-31 8094214284) AGAP (test code = 2-16 5239483128) BUN (test code = 19 mg/dL 7-23 5846864324) GLUCOSE (test code = 227 mg/dL 70-110 H 5455793949) CREATININE (test code = 1.33 mg/dL 0.6-1.25 H 1865907934) CALCIUM (test code = 9.1 mg/dL 8.6-10.6 4289481433) eGFR Calculation mL/min/1.73m2 (Non-) (test code = 7425721231) eGFR Calculation mL/min/1.73m2 () (test code = 0546270735) ALYSSA (test code = ALYSSA) Association of [...] tests). Lab Interpretation Abnormal (test code = 80845-1) [facility]oaPTT2020-03-03 11:00:00 Test Item Value Reference Range Interpretation Comments APTT Patient (test See_Comment H [Automat ed code = 3173-2) message] The system which generated this result transmitted reference range : 23 - 38 Seconds . The reference range was not used to interpr et this result as normal/abnormal . ALYSSA (test code = ALYSSA) The [facility] patient population mean normal value for aPTT is 30 seconds. Lab Interpretation Abnormal (test code = 71921-7) [facility] PasoCB WITH AWKOKYQIEXFF7232-52-52 10:43:00 Test Item Value Reference Range Interpretation Comments WBC (test code = See_Comment [Automated message] 5290-2) The system [employer] generated this result transmitted ref erence range: 4.20 - 1 0.70 10*3/?L. The re ference range was not u sed to interpret this result as normal/abnor mal. RBC (test code = See_Comment [Automated message] 839-8) The system [employer] generated this result transmitted ref erence range: [...] RDW-SD (test code 41.5 fL 38.5-51.6 = 91731-0) RDW-CV (test code 12.8 % 12.1-15.4 = 788-0) PLT (test code = See_Comment [Automated message] 847-3) The system whic h generated this result transmitted ref erence range: 150 - 32 8 10*3/?L. The re ference range was not u sed to interpret this result as normal/abnor mal. MPV (test code = 10.7 fL 9.8-13 32829-3) NRBC/100 WBC (test See_Comment [Automat ed message] code = 5046556935) The syste m which generated this result transmitted ref erence range: 0.0 - 10 .0 /100 WBCs. The refer ence range was not u sed to interpret this result as normal/abnor mal. NRBC x10^3 (test <0.01 See_Comment [Automated message] code = 8095177867) The syste m which generated this result transmitted ref erence range: 10*3/?L. The reference range was not used to interpr et this result as normal/abnormal . GRAN MAT (NEUT) % 56.1 % (test code = 770-8) IMM GRAN % (test 0.30 % code = 6851838107) LYMPH % (test code 29.5 % = 736-9) MONO % (test code 9.9 % = 5905-5) EOS % (test code = 3.3 % 713-8) BASO % (test code 0.9 % = 706-2) GRAN MAT 3.73 10*3/uL 1.99-6.95 x10^3(ANC) (test code = 9164777970) IMM GRAN x10^3 <0.03 0-0.06 (test code = 1820448156) LYMPH x10^3 (test 1.96 10*3/uL 1.09-3.23 code = 731-0) MONO x10^3 (test 0.66 10*3/uL 0.36-1.02 code = 742-7) EOS x10^3 (test 0.22 10*3/uL 0.06-0.53 code = 711-2) BASO x10^3 (test 0.06 10*3/uL 0.01-0.09 code = 704-7) [facility] 01:49:00 Test Item Value Reference Range Interpretation Comments POCT GLU (test code = 2366761476) 305 mg/dL 70-110 H Lab Interpretation (test code = Abnormal 75162-4) [facility]2020-01-17 00:01:00 Test Item Value Reference Range Interpretation Comments POCT GLU (test code = 6029392970) 271 mg/dL 70-110 H Lab Interpretation (test code = Abnormal 79321-3) [facility]oaPTT2020-03-02 22:23:00 Test Item Value Reference Range Interpretation Comments APTT Patient (test See_Comment H [Automat ed code = 3173-2) message] The system which generated this result transmitted reference range : 23 - 38 Seconds . The reference range was not used to interpr et this result as normal/abnormal . ALYSSA (test code = ALYSSA) The [facility] patient population mean normal value for aPTT is 30 seconds. Lab Interpretation Abnormal (test code = 85908-4) [facility] PasoTROPONIN [id number] 21:22:00 Test Item Value Reference Range Interpretation Comments TROPONIN I (test 0.061 ng/mL See_Comment H [Automated code = 2072462904) message] The system which generated this result [...] ? Lab Interpretation Abnormal (test code = 95635-8) [facility]2020-01-16 17:37:00 Test Item Value Reference Range Interpretation Comments POCT GLU (test code = 6243145931) 271 mg/dL 70-110 H Lab Interpretation (test code = Abnormal 37277-8) [facility]oaPTT2020-03-02 12:47:00 Test Item Value Reference Range Interpretation Comments APTT Patient (test See_Comment HH [Automat ed code = 3173-2) message] The system which generated this result transmitted reference range : 23 - 38 Seconds . The reference range was not used to interpr et this result as normal/abnormal . ALYSSA (test code = ALYSSA) The [facility] patient population mean normal value for aPTT is 30 seconds. Lab Interpretation Abnormal (test code = 59536-1) [facility] PasoTROPONIN [id number] 12:35:00 Test Item Value Reference Range Interpretation Comments TROPONIN I (test 0.074 ng/mL See_Comment H [Automated code = 0714775287) message] The system which generated this result [...] ? Lab Interpretation Abnormal (test code = 91976-4) [facility] PasoLIPID PANEL (37257)(TOTAL CHOLESTEROL, TRIGLYCERIDES, HDL)2020-01-16 12:23:00 Test Item Value Reference Range Interpretation Comments CHOL (test code = 95 mg/dL 120-200 L 8360079003) HDL (test code = 44 mg/dL >40 8592326032) HDLC RATIO (test code = See_Comment [Au tomated message] 6037688737) The system [employer] generated this result transmitted ref erence range: <=5.0. T he reference range was not used to int erpret this result as normal/abnormal . TRIG (test code = 89 mg/dL 30-170 5069078906) LDL CHOL (test code = 33 mg/dL See_Comment [Auto mated message] 08969-6) The system [employer] generated this result transmitted ref erence range: <=160. T he reference range was not used to int erpret this result as normal/abnormal . VLDL (test code = 18 mg/dL 5-60 1152814978) Lab Interpretation (test Abnormal code = 81379-2) [facility] PasoGlycosylated Hemoglobin (A1C)2020-01-16 09:03:00 Test Item Value Reference [...] Indicated Lab Interpretation Abnormal (test code = 33083-7) [facility] PasoCritical Tsbo5415-34-62 05:48:18Charanjit Heck MD ? ? 01/15/2020 11:48 [...] review of old charts and examination of patientUnSaint Mark's Medical CenterProthrombin Time (PT) / [id number] 05:28:00 Test Item Value Reference Range Interpretation [...] tions. Lab Interpretation (test Normal code = 62435-0) [facility]oaPTT2020-03-02 05:27:00 Test Item Value Reference Range Interpretation Comments APTT Patient (test See_Comment [Automat ed code = 3173-2) message] The system which generated this result transmitted reference range : 23 - 38 Seconds . The reference range was not used to interpr et this result as normal/abnormal . ALYSSA (test code = ALYSSA) The [facility] patient population mean normal value for aPTT is 30 seconds. Lab Interpretation Normal (test code = 07054-5) [facility] PasoTroponin [id number] 05:11:00 Test Item Value Reference Range Interpretation Comments TROPONIN I (test 0.075 ng/mL See_Comment H [Automated code = 9411656076) message] The system which generated this result [...] ? Lab Interpretation Abnormal (test code = 03253-6) [facility] PasoN-TERMINAL WMI-HSM9691-17-02 05:08:00 Test Item Value Reference Range Interpretation Comments NT-proBNP (test code 896 pg/mL See_Comment H [Autom ated = 5299420786) message] The system which generated this result transmitted reference range : <=450. The reference range was not used to interpret this result as normal/abnormal . ALYSSA (test code = ALYSSA) Biotin has been reported to cause a negative bias, interpret results relative to patient's use of biotin. Lab Interpretation Abnormal (test code = 71104-1) [facility] PasoBasi Metabolic Panel (NA, K, CL, CO2, GLUCOSE, BUN, CREATININE, CA)2020-01-16 04:59:00 Test Item Value Reference Range Interpretation Comments NA (test code = 136 mmol/L 135-145 4675657433) K (test code = 4.0 mmol/L 3.5-5 5645861270) CL (test code = 101 mmol/L 98-108 1173543830) CO2 TOTAL (test code = 27 mmol/L 23-31 6125191034) AGAP (test code = 2-16 7105086324) BUN (test code = 17 mg/dL 7-23 0190492066) GLUCOSE (test code = 445 mg/dL 70-110 H 0659971074) CREATININE (test code = 1.29 mg/dL 0.6-1.25 H 1860739382) CALCIUM (test code = 8.8 mg/dL 8.6-10.6 7987665811) eGFR Calculation mL/min/1.73m2 (Non-) (test code = 5726479041) eGFR Calculation mL/min/1.73m2 () (test code = 9976316267) ALYSSA (test code = ALYSSA) Association of [...] tests). Lab Interpretation Abnormal (test code = 89500-7) [facility] PasoHepatic Function Panel (ALB, T.PRO, BILI T, BU/BC, ALT, AST, ALK PHOS)2020-01-16 04:59:00 Test Item Value Reference Range Interpretation Comments TOTAL BILI (test code = 6152201382) 1.3 mg/dL 0.1-1.1 H BILI UNCON (test code = 7406260139) 1.1 mg/dL 0.1-1.1 BILI CONJ (test code = 5530077002) 0.0 mg/dL 0-0.3 T PROTEIN (test code = 2541363536) 6.3 g/dL 6.3-8.2 ALBUMIN (test code = 8010076987) 3.9 g/dL 3.5-5 ALK PHOS (test code = 2886533525) 67 U/L 34-122 ALTv (test code = 1742-6) 15 U/L 5-50 AST(SGOT) (test code = 7234447860) 23 U/L 13-40 Lab Interpretation (test code = Abnormal 55629-0) [facility] 1 Nwxb6198-69-22 04:54:13Impression: Moderate cardiomegaly without acute pulmonary process. RL: 460 AFC: [id number] Electronicallysigned by Esperanza Rosado MD, PhD at 01/15/2020 10:54 PMIndication: Chest pain Comparison: None available Findings: Single AP view of the chest. The cardiopericardial silhouette ismoderately enlarged.The lungs are clear bilaterally. The visualized bonythorax is intact. A thoracic neurostimulator device is in place. [facility], Radiant Results Inft User - 01/15/2020 10:55 PM CSTIndication: Chest painComparison: None availableFindings: Single AP view of the chest. The cardiopericardial silhouette ismoderately enlarged. The lungs are clear bilaterally. The visualized bonythorax is intact. A thoracic neurostimulator device is in place.IMPRESSIONImpression:Moderate cardiomegaly without acute pulmonary process.RL: 460AFC: [id number] signed by Esperanza Rosado MD, PhD at 01/15/2020 10:54 PMUnO[facility] WITH RRXRUFQKPMAR7375-65-53 04:51:00 Test Item Value Reference Range Interpretation [...] RDW-SD (test code = 40.7 fL 38.5-51.6 04065-1) RDW-CV (test code = 12.8 % 12.1-15.4 788-0) PLT (test code = See_Comment L [Automated 777-3) message] The sy stem which generated this result transmitted reference range : 150 - 328 10*3/ ?L. The reference r corey was not used to interpret this result as normal/abnormal . MPV (test code = 10.6 fL 9.8-13 86360-2) IPF % (test code = 2.8 % 1.2-10.7 Platelet count 4776544701) measured by fluorescence method. NRBC/100 WBC (test See_Comment [Automat ed code = 0065393841) message] The system which generated this result transmitted reference range : 0.0 - 10.0 /100 WBCs. The refer ence range was not u sed to interpret th is result as normal/abnormal . NRBC x10^3 (test code <0.01 See_Comment [Auto mated = 0469320910) message] The s ystem which generated this result transmitted reference range : 10*3/?L. The reference range was not used to interpret this result as normal/abnormal . GRAN MAT (NEUT) % 56.0 % (test code = 770-8) IMM GRAN % (test code 0.20 % = 9512935443) LYMPH % (test code = 30.5 % 736-9) MONO % (test code = 9.6 % 5905-5) EOS % (test code = 2.8 % 713-8) BASO % (test code = 0.9 % 706-2) GRAN MAT x10^3(ANC) 2.98 10*3/uL 1.99-6.95 (test code = 6606451623) IMM GRAN x10^3 (test <0.03 0-0.06 code = 0231222224) LYMPH x10^3 (test code 1.62 10*3/uL 1.09-3.23 = 731-0) MONO x10^3 (test code 0.51 10*3/uL 0.36-1.02 = 742-7) EOS x10^3 (test code = 0.15 10*3/uL 0.06-0.53 711-2) BASO x10^3 (test code 0.05 10*3/uL 0.01-0.09 = 704-7) Lab Interpretation Abnormal (test code = 01381-7) [facility] PasoCHEMISTRY2013-04-22 10:30:00 Test Item Value Reference Range Interpretation Comments eGFR (test code = eGFR) 37 [facility]PzrkfrrHKQTXUKEH5522-02-37 10:30:00 Test Item Value Reference Range Interpretation Comments Sodium Lvl (test code = Sodium Lvl) 144 135-145 N [facility] HospitalDnbtnzwYYSKNLFWW2518-54-23 10:30:00 Test Item Value Reference Range Interpretation Comments Potassium Lvl (test code = Potassium 3.9 3.5-5.1 N Lvl) [facility] HospitalGvqlkynGGDPOSTJY7196-43-26 10:30:00 Test Item Value Reference Range Interpretation Comments Chloride Lvl (test code = Chloride Lvl) 104 95-109 N [facility]XefalovLCSEGAMNZ3324-54-36 10:30:00 Test Item Value Reference Range Interpretation Comments CO2 (test code = CO2) 26 24-32 N [facility] HospitalFlnebcnGXYERNCID5677-07-03 10:30:00 Test Item Value Reference Range Interpretation Comments Calcium Lvl (test code = Calcium Lvl) 8.6 8.5-10.5 N [facility] HospitalSbwisejJJVBOVGTB7672-61-91 10:30:00 Test Item Value Reference Range Interpretation Comments Glucose Lvl (test code = Glucose Lvl) 160 70-99 H [facility] SouthTytwjnqFQBOOIJOU6270-00-15 10:30:00 Test Item Value Reference Range Interpretation Comments BUN (test code = BUN) 23 7-22 H [facility] SouthErzfxadZQPVCORET0608-72-82 10:30:00 Test Item Value Reference Range Interpretation Comments Creatinine Lvl (test code = Creatinine 1.8 0.5-1.4 H Lvl) [facility] SouthFftsxesJQQEGXEFW2097-89-66 10:30:00 Test Item Value Reference Range Interpretation Comments AGAP (test code = AGAP) 17.9 10.0-20.0 N [facility] CenterOkscxmqUCNSGWHDYE7770-60-99 10:30:00 Test Item Value Reference Range Interpretation Comments MPV (test code = MPV) 8.3 7.4-10.4 N [facility] CenterVjmiaonNGNBPDVKOL0918-16-04 10:30:00 Test Item Value Reference Range Interpretation Comments RDW (test code = RDW) 13.6 11.5-14.5 N [facility] CenterYqcypfvRITQIGJGWL9569-18-81 10:30:00 Test Item Value Reference Range Interpretation Comments MCHC (test code = MCHC) 34.5 32.0-36.0 N [facility] CenterQcouojiFCXYACLVAQ5000-04-46 10:30:00 Test Item Value Reference Range Interpretation Comments Platelet (test code = Platelet) 155 133-450 N [facility] CenterRpqasvfHTXYVBAVKE7282-71-06 10:30:00 Test Item Value Reference Range Interpretation Comments MCH (test code = MCH) 33.0 pg 27.0-31.0 H [facility] CenterHczsdwbPNXDUTAPGF0446-94-96 10:30:00 Test Item Value Reference Range Interpretation Comments MCV (test code = MCV) 95.8 80.0-94.0 H [facility] CenterEzvtapaJKMMGQXNUM3521-84-66 10:30:00 Test Item Value Reference Range Interpretation Comments WBC (test code = WBC) 4.6 3.7-10.4 N [facility] CenterTmvdyfzHIMGWBVXPP4680-34-12 10:30:00 Test Item Value Reference Range Interpretation Comments RBC (test code = RBC) 3.81 4.70-6.10 L [facility] CenterSwhhdlgMZKBYJSFVH5587-31-12 10:30:00 Test Item Value Reference Range Interpretation Comments Hgb (test code = Hgb) 12.6 14.0-18.0 L [facility] CenterQphkbajKKVSRZRYQK4558-70-95 10:30:00 Test Item Value Reference Range Interpretation Comments Hct (test code = Hct) 36.5 42.0-54.0 L [facility] CenterQkpcbqeKCBYNWWTFW1368-98-94 10:30:00 Test Item Value Reference Range Interpretation Comments Lymphocytes # (test code = Lymphocytes 1.1 1.0-5.5 N #) [facility] CenterRdnpartMMTIBKHSPN3959-49-83 10:30:00 Test Item Value Reference Range Interpretation Comments Monocytes # (test code 0.6 See_Comment N [Aut omated message] The = Monocytes #) system which generated this result tra nsmitted reference range : <=0.8. The reference r corey was not used to int erpret this result as normal/abnormal . [facility] CenterXsgjunzBOABEAYSRO4726-05-26 10:30:00 Test Item Value Reference Range Interpretation Comments Eosinophils # (test code 0.3 See_Comment N [A utomated message] The = Eosinophils #) system whic h generated this result tra nsmitted reference range : <=0.5. The reference r corey was not used to int erpret this result as normal/abnormal . [facility] CenterHrtubmrFIRTLVHTVJ2368-70-81 10:30:00 Test Item Value Reference Range Interpretation Comments Basophils # (test code 0.0 See_Comment N [Aut omated message] The = Basophils #) system which generated this result tra nsmitted reference range : <=0.2. The reference r corey was not used to int erpret this result as normal/abnormal . [facility] CenterIscivbpYPYDJNRVRC0382-13-48 10:30:00 Test Item Value Reference Range Interpretation Comments Segs (test code = Segs) 56.4 45.0-75.0 N [facility] CenterQfgnvraGKEKNWEKVB0614-79-35 10:30:00 Test Item Value Reference Range Interpretation Comments Segs-Bands # (test code = Segs-Bands #) 2.6 1.5-8.1 N [facility] CenterOacfjstZZMEUGWAFU4696-08-74 10:30:00 Test Item Value Reference Range Interpretation Comments Lymphocytes (test code = Lymphocytes) 24.8 20.0-40.0 N [facility] CenterTrsomnxYITFPAJGPZ3134-63-12 10:30:00 Test Item Value Reference Range Interpretation Comments Monocytes (test code = Monocytes) 12.3 2.0-12.0 H [place] 802863-04-22 10:30:00 Test Item Value Reference Range Interpretation Comments Eosinophils (test code = 5.9 See_Comment H [A utomated message] The Eosinophils) system which ge nerated this result tra nsmitted reference range : <=4.0. The reference r corey was not used to int erpret this result as normal/abnormal . [facility] CenterJtwnhjyTZEXLGBYOU1799-01-77 10:30:00 Test Item Value Reference Range Interpretation Comments Basophils (test code = 0.6 See_Comment N [Aut omated message] The Basophils) system which ge nerated this result tra nsmitted reference range : <=1.0. The reference r corey was not used to int erpret this result as normal/abnormal . [facility]VawkffoVLVZHWMGJ6912-[facility] 10:30:00 Test Item Value Reference Range Interpretation Comments eGFR (test code = eGFR) 37 [facility] SouthPskthvnRYXPWDJHQ3965-16-26 10:30:00 Test Item Value Reference Range Interpretation Comments Sodium Lvl (test code = Sodium Lvl) 144 135-145 N [facility] SouthLxpjcdvZVFWIUDXA4569-19-32 10:30:00 Test Item Value Reference Range Interpretation Comments Potassium Lvl (test code = Potassium 3.9 3.5-5.1 N Lvl) [facility] SouthRijomdhXALCXGSUW3189-50-43 10:30:00 Test Item Value Reference Range Interpretation Comments Chloride Lvl (test code = Chloride Lvl) 104 95-109 N [facility] SouthJkuupqpQASQJGRDK8028-73-78 10:30:00 Test Item Value Reference Range Interpretation Comments CO2 (test code = CO2) 26 24-32 N [facility] SouthIfkikytVEWZCOIYT7918-86-97 10:30:00 Test Item Value Reference Range Interpretation Comments Calcium Lvl (test code = Calcium Lvl) 8.6 8.5-10.5 N [facility] SouthIkycwucFWFTVEHHX1480-91-18 10:30:00 Test Item Value Reference Range Interpretation Comments Glucose Lvl (test code = Glucose Lvl) 160 70-99 H [facility] SouthFejizbqRXENONNTZ0197-20-72 10:30:00 Test Item Value Reference Range Interpretation Comments BUN (test code = BUN) 23 7-22 H [facility] SouthXwnqkofQGUVOKKLT7519-87-40 10:30:00 Test Item Value Reference Range Interpretation Comments Creatinine Lvl (test code = Creatinine 1.8 0.5-1.4 H Lvl) [facility]FznrraiQNKZPNVOS0908-39-43 10:30:00 Test Item Value Reference Range Interpretation Comments AGAP (test code = AGAP) 17.9 10.0-20.0 N [facility]CrtgljcXRJBTBAVKT4283-84-59 10:30:00 Test Item Value Reference Range Interpretation Comments MPV (test code = MPV) 8.3 7.4-10.4 N [facility] CenterPkghcvnXBVTRUPMCZ5107-26-30 10:30:00 Test Item Value Reference Range Interpretation Comments RDW (test code = RDW) 13.6 11.5-14.5 N [facility] CenterTahwigrUXWQAMFKHK3980-54-63 10:30:00 Test Item Value Reference Range Interpretation Comments MCHC (test code = MCHC) 34.5 32.0-36.0 N [facility] CenterOdbyapnAKGEMTKXVO5856-71-56 10:30:00 Test Item Value Reference Range Interpretation Comments Platelet (test code = Platelet) 155 133-450 N [facility] CenterIimmpfgWNQWTOPHTN8795-49-65 10:30:00 Test Item Value Reference Range Interpretation Comments MCH (test code = MCH) 33.0 pg 27.0-31.0 H [facility] CenterYkycgqaREOYTSFEZZ8929-70-67 10:30:00 Test Item Value Reference Range Interpretation Comments MCV (test code = MCV) 95.8 80.0-94.0 H [facility] CenterXjjxvorLPJDIVVPKO8053-56-79 10:30:00 Test Item Value Reference Range Interpretation Comments WBC (test code = WBC) 4.6 3.7-10.4 N [facility] CenterMgkydghLWEQCVQEUQ6138-14-19 10:30:00 Test Item Value Reference Range Interpretation Comments RBC (test code = RBC) 3.81 4.70-6.10 L [facility] CenterGeitpykLVCLCXHWOT7131-94-46 10:30:00 Test Item Value Reference Range Interpretation Comments Hgb (test code = Hgb) 12.6 14.0-18.0 L [facility] CenterWrqlczbMFXHTWQIKC7502-14-59 10:30:00 Test Item Value Reference Range Interpretation Comments Hct (test code = Hct) 36.5 42.0-54.0 L [facility] CenterUodsjnfRGIZMVCHQB1634-80-21 10:30:00 Test Item Value Reference Range Interpretation Comments Lymphocytes # (test code = Lymphocytes 1.1 1.0-5.5 N #) [facility] CenterBicdhojPGKVVFBGLB3669-03-81 10:30:00 Test Item Value Reference Range Interpretation Comments Monocytes # (test code 0.6 See_Comment N [Aut omated message] The = Monocytes #) system which generated this result tra nsmitted reference range : <=0.8. The reference r corey was not used to int erpret this result as normal/abnormal . [facility] CenterDykmqbhGHJDWMSFNW5419-71-63 10:30:00 Test Item Value Reference Range Interpretation Comments Eosinophils # (test code 0.3 See_Comment N [A utomated message] The = Eosinophils #) system whic h generated this result tra nsmitted reference range : <=0.5. The reference r corey was not used to int erpret this result as normal/abnormal . [facility] CenterLyhvlpuWKDTIZWNBP6419-27-21 10:30:00 Test Item Value Reference Range Interpretation Comments Basophils # (test code 0.0 See_Comment N [Aut omated message] The = Basophils #) system which generated this result tra nsmitted reference range : <=0.2. The reference r corey was not used to int erpret this result as normal/abnormal . [facility] CenterSesmzcqJSBPQKMFQN9639-24-18 10:30:00 Test Item Value Reference Range Interpretation Comments Segs (test code = Segs) 56.4 45.0-75.0 N [facility] CenterGhwoiztARHPMKYZAS9094-57-40 10:30:00 Test Item Value Reference Range Interpretation Comments Segs-Bands # (test code = Segs-Bands #) 2.6 1.5-8.1 N [facility] CenterTruymsnPEGJEXEKYL8785-34-64 10:30:00 Test Item Value Reference Range Interpretation Comments Lymphocytes (test code = Lymphocytes) 24.8 20.0-40.0 N [facility] CenterIonuiugHFNNKULJPR1527-56-01 10:30:00 Test Item Value Reference Range Interpretation Comments Monocytes (test code = Monocytes) 12.3 2.0-12.0 H [facility] CenterYmaxuqnZXETAYPHUW0090-99-44 10:30:00 Test Item Value Reference Range Interpretation Comments Eosinophils (test code = 5.9 See_Comment H [A utomated message] The Eosinophils) system which ge nerated this result tra nsmitted reference range : <=4.0. The reference r corey was not used to int erpret this result as normal/abnormal . [facility] HospitalNpeaceqRAMBPTXPFH4281-15-28 10:30:00 Test Item Value Reference Range Interpretation Comments Basophils (test code = 0.6 See_Comment N [Aut omated message] The Basophils) system which ge nerated this result tra nsmitted reference range : <=1.0. The reference r corey was not used to int erpret this result as normal/abnormal . [facility] GLUCOSE RTGPHHR5807-66-62 22:11:00 Test Item Value Reference Range Interpretation Comments Gluc POC Lifscn (test code = Gluc POC 148 70-99 H Lifscn) [facility] GLUCOSE [id number] 22:11:00 Test Item Value Reference Range Interpretation Comments Gluc POC Lifscn (test code = Gluc POC 148 70-99 H Lifscn) [facility] GLUCOSE RUOSQME0556-21-97 17:23:00 Test Item Value Reference Range Interpretation Comments Comment1 (test code = Comment1) Notify RN/ [facility] GLUCOSE BUDDHWR7589-64-46 17:23:00 Test Item Value Reference Range Interpretation Comments Gluc POC Lifscn (test code = Gluc POC 119 70-99 H Lifscn) [facility] GLUCOSE [id number] 17:23:00 Test Item Value Reference Range Interpretation Comments Comment1 (test code = Comment1) Notify RN/ [facility] GLUCOSE [id number] 17:23:00 Test Item Value Reference Range Interpretation Comments Gluc POC Lifscn (test code = Gluc POC 119 70-99 H Lifscn) [facility] GLUCOSE [id number] 09:52:00 Test Item Value Reference Range Interpretation Comments Comment1 (test code = Comment1) Notify RN/ [facility] GLUCOSE [id number] 09:52:00 Test Item Value Reference Range Interpretation Comments Gluc POC Lifscn (test code = Gluc POC 140 70-99 H Lifscn) [facility] GLUCOSE KLJQRER5245-44-07 09:52:00 Test Item Value Reference Range Interpretation Comments Comment1 (test code = Comment1) Notify RN/ [facility] GLUCOSE ZOIFHHJ6014-76-28 09:52:00 Test Item Value Reference Range Interpretation Comments Gluc POC Lifscn (test code = Gluc POC 140 70-99 H Lifscn) [facility] GLUCOSE [id number] 20:02:00 Test Item Value Reference Range Interpretation Comments Comment1 (test code = Comment1) Notify RN/ [facility] GLUCOSE OELRYEW5793-09-67 20:02:00 Test Item Value Reference Range Interpretation Comments Comment1 (test code = Comment1) Notify RN/MD [facility] SouthQduedvoERAWBSQJJ0887-60-21 10:40:00 Test Item Value Reference Range Interpretation Comments AGAP (test code = AGAP) 18.8 10.0-20.0 N [facility] SouthHgxabqeALPXOSHCI6853-25-12 10:40:00 Test Item Value Reference Range Interpretation Comments eGFR (test code = eGFR) 49 [facility] SouthNtumjvbAYPBVTOIV1239-40-61 10:40:00 Test Item Value Reference Range Interpretation Comments Creatinine Lvl (test code = Creatinine 1.4 0.5-1.4 N Lvl) [facility] SouthPvsrqxgHFTRASIEY0718-07-84 10:40:00 Test Item Value Reference Range Interpretation Comments Glucose Lvl (test code = Glucose Lvl) 143 70-99 H [facility] SouthJhykipjPOHOIRYTR2366-64-34 10:40:00 Test Item Value Reference Range Interpretation Comments BUN (test code = BUN) 7 7-22 N [facility] SouthRzvytugPVIQTNSGU5409-81-87 10:40:00 Test Item Value Reference Range Interpretation Comments CO2 (test code = CO2) 27 24-32 N [facility] SouthZglmfqpVJRKSTNCS4486-74-23 10:40:00 Test Item Value Reference Range Interpretation Comments Calcium Lvl (test code = Calcium Lvl) 8.3 8.5-10.5 L [facility] SouthOiqmsbxZYPVTMUAL4997-94-59 10:40:00 Test Item Value Reference Range Interpretation Comments Sodium Lvl (test code = Sodium Lvl) 144 135-145 N [facility] SouthKvqkyhiENSVDYZDD7181-26-94 10:40:00 Test Item Value Reference Range Interpretation Comments Potassium Lvl (test code = Potassium 3.8 3.5-5.1 N Lvl) [facility] SouthGrwhsalMYLEUVDLJ1081-75-43 10:40:00 Test Item Value Reference Range Interpretation Comments Chloride Lvl (test code = Chloride Lvl) 102 95-109 N [facility] CenterMzhwcckDEKFXYQPBS6414-23-62 10:40:00 Test Item Value Reference Range Interpretation Comments Lymphocytes # (test code = Lymphocytes 0.7 1.0-5.5 L #) [facility] CenterXeatlawACZGLTMFJW8887-86-54 10:40:00 Test Item Value Reference Range Interpretation Comments Monocytes # (test code 0.5 See_Comment N [Aut omated message] The = Monocytes #) system which generated this result tra nsmitted reference range : <=0.8. The reference r corey was not used to int erpret this result as normal/abnormal . [facility] CenterXylfaqsXIYSDLOIMF4167-80-96 10:40:00 Test Item Value Reference Range Interpretation Comments Monocytes (test code = Monocytes) 9.0 2.0-12.0 N [facility] CenterZvoxvsrTHOPTGFCYK4590-29-58 10:40:00 Test Item Value Reference Range Interpretation Comments Eosinophils (test code = 2.3 See_Comment N [A utomated message] The Eosinophils) system which ge nerated this result tra nsmitted reference range : <=4.0. The reference r corey was not used to int erpret this result as normal/abnormal . [facility] CenterFmdctyxOLMSOCIHAO7680-73-31 10:40:00 Test Item Value Reference Range Interpretation Comments Eosinophils # (test code 0.1 See_Comment N [A utomated message] The = Eosinophils #) system whic h generated this result tra nsmitted reference range : <=0.5. The reference r corey was not used to int erpret this result as normal/abnormal . [facility] CenterWzsxyjuQNDQYHVHDI5642-25-67 10:40:00 Test Item Value Reference Range Interpretation Comments Basophils # (test code 0.0 See_Comment N [Aut omated message] The = Basophils #) system which generated this result tra nsmitted reference range : <=0.2. The reference r corey was not used to int erpret this result as normal/abnormal . [facility] CenterJezbdpiXFWALBGXGL1063-78-30 10:40:00 Test Item Value Reference Range Interpretation Comments Segs (test code = Segs) 76.0 45.0-75.0 H [facility] CenterUofokgjBLNOTTTEMG3693-35-15 10:40:00 Test Item Value Reference Range Interpretation Comments Lymphocytes (test code = Lymphocytes) 12.2 20.0-40.0 L [facility] CenterCmtemvqTFFKTBOBTD6362-73-34 10:40:00 Test Item Value Reference Range Interpretation Comments Segs-Bands # (test code = Segs-Bands #) 4.6 1.5-8.1 N [facility] CenterRxxokrvPZLRWBDBCW3391-89-21 10:40:00 Test Item Value Reference Range Interpretation Comments Basophils (test code = 0.5 See_Comment N [Aut omated message] The Basophils) system which ge nerated this result tra nsmitted reference range : <=1.0. The reference r corey was not used to int erpret this result as normal/abnormal . [facility] CenterZdxyijuGPRDPQEHUE6961-65-36 10:40:00 Test Item Value Reference Range Interpretation Comments RDW (test code = RDW) 13.1 11.5-14.5 N [facility] CenterNqsvrlxAPXPFCAUXQ2054-73-07 10:40:00 Test Item Value Reference Range Interpretation Comments MPV (test code = MPV) 8.3 7.4-10.4 N [facility] CenterAodvkcsMPJJAYFHWO3488-11-16 10:40:00 Test Item Value Reference Range Interpretation Comments WBC (test code = WBC) 6.0 3.7-10.4 N [facility] CenterNepqycjKINJJECLCP9186-47-39 10:40:00 Test Item Value Reference Range Interpretation Comments Hct (test code = Hct) 35.6 42.0-54.0 L [facility] CenterDuxtwklZOJMCEMAYV0902-57-03 10:40:00 Test Item Value Reference Range Interpretation Comments RBC (test code = RBC) 3.68 4.70-6.10 L [facility] CenterFjserboCTUHLMMOLV8704-15-85 10:40:00 Test Item Value Reference Range Interpretation Comments Hgb (test code = Hgb) 12.3 14.0-18.0 L [facility] CenterLthngtmLSMCYWSPLW3198-25-02 10:40:00 Test Item Value Reference Range Interpretation Comments MCV (test code = MCV) 96.8 80.0-94.0 H [facility] CenterVevjrppUPUIIYNHYQ8607-57-08 10:40:00 Test Item Value Reference Range Interpretation Comments MCH (test code = MCH) 33.5 pg 27.0-31.0 H [facility] CenterDkzxciaFJGSQQWIJS9195-47-35 10:40:00 Test Item Value Reference Range Interpretation Comments MCHC (test code = MCHC) 34.6 32.0-36.0 N [facility] CenterJlamryaGZQVFSSILD6696-40-93 10:40:00 Test Item Value Reference Range Interpretation Comments Platelet (test code = Platelet) 108 133-450 L [facility] SouthXcivloxGQTXTRNIF9393-00-74 10:40:00 Test Item Value Reference Range Interpretation Comments AGAP (test code = AGAP) 18.8 10.0-20.0 N [facility] SouthDqglhsyWNYNXHDAZ2909-61-60 10:40:00 Test Item Value Reference Range Interpretation Comments eGFR (test code = eGFR) 49 [facility] SouthAuqxdsbEQOHFVXRT0628-61-37 10:40:00 Test Item Value Reference Range Interpretation Comments Creatinine Lvl (test code = Creatinine 1.4 0.5-1.4 N Lvl) [facility] SouthSpxycwpQWEQODGHW0640-64-22 10:40:00 Test Item Value Reference Range Interpretation Comments Glucose Lvl (test code = Glucose Lvl) 143 70-99 H [facility] SouthJktkkihJNBMORRHA3842-63-95 10:40:00 Test Item Value Reference Range Interpretation Comments BUN (test code = BUN) 7 7-22 N [facility] SouthBwrffgpAQYUSCMBJ8720-87-29 10:40:00 Test Item Value Reference Range Interpretation Comments CO2 (test code = CO2) 27 24-32 N [facility] SouthWoyfibhCGSMUFBYM0112-33-46 10:40:00 Test Item Value Reference Range Interpretation Comments Calcium Lvl (test code = Calcium Lvl) 8.3 8.5-10.5 L [facility] SouthRxyopywTFMYQBQIS3083-37-56 10:40:00 Test Item Value Reference Range Interpretation Comments Sodium Lvl (test code = Sodium Lvl) 144 135-145 N [facility] SouthEeybexvCSKCGLDDF9476-49-57 10:40:00 Test Item Value Reference Range Interpretation Comments Potassium Lvl (test code = Potassium 3.8 3.5-5.1 N Lvl) [facility] SouthVuzhpcrTDXFHHJTP0888-11-32 10:40:00 Test Item Value Reference Range Interpretation Comments Chloride Lvl (test code = Chloride Lvl) 102 95-109 N [facility] CenterXxoghqiKWXCKUIVRM1402-77-20 10:40:00 Test Item Value Reference Range Interpretation Comments Lymphocytes # (test code = Lymphocytes 0.7 1.0-5.5 L #) [facility] CenterNssqrfwLHVNHYYWQP0791-84-03 10:40:00 Test Item Value Reference Range Interpretation Comments Monocytes # (test code 0.5 See_Comment N [Aut omated message] The = Monocytes #) system which generated this result tra nsmitted reference range : <=0.8. The reference r corey was not used to int erpret this result as normal/abnormal . [facility] CenterLwoacfgFFFLLCKVIG3796-45-10 10:40:00 Test Item Value Reference Range Interpretation Comments Monocytes (test code = Monocytes) 9.0 2.0-12.0 N [facility] CenterYoktswuRCDJYPMLZV6059-44-49 10:40:00 Test Item Value Reference Range Interpretation Comments Eosinophils (test code = 2.3 See_Comment N [A utomated message] The Eosinophils) system which ge nerated this result tra nsmitted reference range : <=4.0. The reference r corey was not used to int erpret this result as normal/abnormal . [facility] CenterTvjpxxsBDDSJVWNZB5401-23-35 10:40:00 Test Item Value Reference Range Interpretation Comments Eosinophils # (test code 0.1 See_Comment N [A utomated message] The = Eosinophils #) system whic h generated this result tra nsmitted reference range : <=0.5. The reference r corey was not used to int erpret this result as normal/abnormal . [facility] CenterHkjijanEKXDPZTEWH8258-74-19 10:40:00 Test Item Value Reference Range Interpretation Comments Basophils # (test code 0.0 See_Comment N [Aut omated message] The = Basophils #) system which generated this result tra nsmitted reference range : <=0.2. The reference r corey was not used to int erpret this result as normal/abnormal . [facility] CenterStfpbwbBSLBJYZQAU5067-13-00 10:40:00 Test Item Value Reference Range Interpretation Comments Segs (test code = Segs) 76.0 45.0-75.0 H [facility] CenterBlfadjlOHNUPJUBYC5980-65-34 10:40:00 Test Item Value Reference Range Interpretation Comments Lymphocytes (test code = Lymphocytes) 12.2 20.0-40.0 L [facility] CenterEjbvhbmMMRHATHRJE1275-88-61 10:40:00 Test Item Value Reference Range Interpretation Comments Segs-Bands # (test code = Segs-Bands #) 4.6 1.5-8.1 N [facility] CenterCgrzrhzBOBLBFGPLM6294-89-06 10:40:00 Test Item Value Reference Range Interpretation Comments Basophils (test code = 0.5 See_Comment N [Aut omated message] The Basophils) system which ge nerated this result tra nsmitted reference range : <=1.0. The reference r corey was not used to int erpret this result as normal/abnormal . [facility] CenterAjtljqoPYRAWOYFUH2943-87-30 10:40:00 Test Item Value Reference Range Interpretation Comments RDW (test code = RDW) 13.1 11.5-14.5 N [facility] CenterTclpuvuKKRIAKYXQP4984-21-58 10:40:00 Test Item Value Reference Range Interpretation Comments MPV (test code = MPV) 8.3 7.4-10.4 N [facility] CenterSjcajahLFDEGMESVJ8455-64-17 10:40:00 Test Item Value Reference Range Interpretation Comments WBC (test code = WBC) 6.0 3.7-10.4 N [facility] CenterSyoajsoJPBVCSKPZO1904-47-96 10:40:00 Test Item Value Reference Range Interpretation Comments Hct (test code = Hct) 35.6 42.0-54.0 L [facility] CenterHqvdmrgOMVIIUNXXQ3726-90-86 10:40:00 Test Item Value Reference Range Interpretation Comments RBC (test code = RBC) 3.68 4.70-6.10 L [facility] CenterGntfqgzSDBJAPETAU4550-49-03 10:40:00 Test Item Value Reference Range Interpretation Comments Hgb (test code = Hgb) 12.3 14.0-18.0 L [facility] CenterKfadvvcRKOKIYHLHP0584-92-75 10:40:00 Test Item Value Reference Range Interpretation Comments MCV (test code = MCV) 96.8 80.0-94.0 H [facility] CenterScmtqtuXTMVSTWYOA2812-52-09 10:40:00 Test Item Value Reference Range Interpretation Comments MCH (test code = MCH) 33.5 pg 27.0-31.0 H [facility] CenterMxoujdqXOXAFUGOCT3169-37-13 10:40:00 Test Item Value Reference Range Interpretation Comments MCHC (test code = MCHC) 34.6 32.0-36.0 N [facility] CenterEwxrjycADOJZDZLJB6632-08-44 10:40:00 Test Item Value Reference Range Interpretation Comments Platelet (test code = Platelet) 108 133-450 L [facility] SouthVbtwnxkWJPICJMDC3559-61-93 14:35:00 Test Item Value Reference Range Interpretation Comments AGAP (test code = AGAP) 15.1 10.0-20.0 N [facility] SouthXskctnyVXHGLDOUI7191-13-19 14:35:00 Test Item Value Reference Range Interpretation Comments eGFR (test code = eGFR) 42 [facility] SouthGzmniddULTXXSMOT7161-20-72 14:35:00 Test Item Value Reference Range Interpretation Comments Calcium Lvl (test code = Calcium Lvl) 8.0 8.5-10.5 L [facility] SouthUzqrereYCCRJOMZQ6950-35-88 14:35:00 Test Item Value Reference Range Interpretation Comments Chloride Lvl (test code = Chloride Lvl) 106 95-109 N [facility] SouthYuarijlGNRDNSKSZ7459-15-43 14:35:00 Test Item Value Reference Range Interpretation Comments CO2 (test code = CO2) 27 24-32 N [facility] SouthUxayqpbHAPOOAYWA8707-77-83 14:35:00 Test Item Value Reference Range Interpretation Comments Glucose Lvl (test code = Glucose Lvl) 140 70-99 H [facility] SouthJrdmzanOOWCUZAWG7811-21-16 14:35:00 Test Item Value Reference Range Interpretation Comments BUN (test code = BUN) 10 7-22 N [facility] SouthSfugcpxAPUFPLSES2826-67-94 14:35:00 Test Item Value Reference Range Interpretation Comments Potassium Lvl (test code = Potassium 4.1 3.5-5.1 N Lvl) [facility] SouthJlmftvhKFYUUOHUT8851-02-40 14:35:00 Test Item Value Reference Range Interpretation Comments Sodium Lvl (test code = Sodium Lvl) 144 135-145 N [facility] SouthYflfhxqALRXJZTKV0446-71-31 14:35:00 Test Item Value Reference Range Interpretation Comments Creatinine Lvl (test code = Creatinine 1.6 0.5-1.4 H Lvl) [facility] CenterPcsaulhIAKVJSSRPT0832-98-47 14:35:00 Test Item Value Reference Range Interpretation Comments Basophils # (test code 0.1 See_Comment N [Aut omated message] The = Basophils #) system which generated this result tra nsmitted reference range : <=0.2. The reference r corey was not used to int erpret this result as normal/abnormal . [facility] CenterDtkjitcVOTDAWMOCN6492-45-34 14:35:00 Test Item Value Reference Range Interpretation Comments Segs (test code = Segs) 73.2 45.0-75.0 N [facility] CenterHodixjyAPGWKHRZXE3752-50-33 14:35:00 Test Item Value Reference Range Interpretation Comments Eosinophils (test code = 2.4 See_Comment N [A utomated message] The Eosinophils) system which ge nerated this result tra nsmitted reference range : <=4.0. The reference r corey was not used to int erpret this result as normal/abnormal . [facility] CenterZfkxeahPGGVRWLWAI7449-10-67 14:35:00 Test Item Value Reference Range Interpretation Comments Lymphocytes (test code = Lymphocytes) 13.7 20.0-40.0 L [facility] CenterFphwegsEJIBUXYIFB9281-55-54 14:35:00 Test Item Value Reference Range Interpretation Comments Monocytes (test code = Monocytes) 9.8 2.0-12.0 N [facility] CenterZgqsrehZQHDZJONCB4525-05-18 14:35:00 Test Item Value Reference Range Interpretation Comments Eosinophils # (test code 0.1 See_Comment N [A utomated message] The = Eosinophils #) system wh h generated this result tra nsmitted reference range : <=0.5. The reference r corey was not used to int erpret this result as normal/abnormal . [facility] CenterUmtbnnnHQBYKSVSAW1551-94-93 14:35:00 Test Item Value Reference Range Interpretation Comments Monocytes # (test code 0.6 See_Comment N [Aut omated message] The = Monocytes #) system which generated this result tra nsmitted reference range : <=0.8. The reference r corey was not used to int erpret this result as normal/abnormal . [facility] CenterSxhjneyJWRELNPWQT9197-67-64 14:35:00 Test Item Value Reference Range Interpretation Comments Lymphocytes # (test code = Lymphocytes 0.8 1.0-5.5 L #) [facility] CenterIwlrxbxPZOQYXZLKE6500-03-55 14:35:00 Test Item Value Reference Range Interpretation Comments Segs-Bands # (test code = Segs-Bands #) 4.2 1.5-8.1 N [facility] CenterDhmtifzLEZKTIBEFX3812-08-38 14:35:00 Test Item Value Reference Range Interpretation Comments Basophils (test code = 0.9 See_Comment N [Aut omated message] The Basophils) system which ge nerated this result tra nsmitted reference range : <=1.0. The reference r corey was not used to int erpret this result as normal/abnormal . [facility] CenterVyzqkqlQJBGVPIMVV0743-30-03 14:35:00 Test Item Value Reference Range Interpretation Comments Platelet (test code = Platelet) 116 133-450 L [facility] CenterLyopmryEGWMWUIKWO8287-92-36 14:35:00 Test Item Value Reference Range Interpretation Comments RDW (test code = RDW) 14.2 11.5-14.5 N [facility] CenterJxhpeviGFGBHPRDMV6265-76-28 14:35:00 Test Item Value Reference Range Interpretation Comments MPV (test code = MPV) 7.7 7.4-10.4 N [facility] CenterXypxtkqGCQYLSQVRC6532-23-28 14:35:00 Test Item Value Reference Range Interpretation Comments Hct (test code = Hct) 33.5 42.0-54.0 L [facility] CenterSdarikyKVOORPCBMB8272-82-32 14:35:00 Test Item Value Reference Range Interpretation Comments MCV (test code = MCV) 95.6 80.0-94.0 H [facility] CenterFtpuvyvEACOGCDBTV1260-25-33 14:35:00 Test Item Value Reference Range Interpretation Comments MCHC (test code = MCHC) 34.3 32.0-36.0 N [facility] CenterFffxdkrOEPDCPNMAN7442-21-33 14:35:00 Test Item Value Reference Range Interpretation Comments MCH (test code = MCH) 32.8 pg 27.0-31.0 H [facility] CenterYyypessBDSMTGKPII5743-53-99 14:35:00 Test Item Value Reference Range Interpretation Comments Hgb (test code = Hgb) 11.5 14.0-18.0 L [facility] CenterYbevrftYBFDZAWXWD6379-08-47 14:35:00 Test Item Value Reference Range Interpretation Comments RBC (test code = RBC) 3.51 4.70-6.10 L [facility] CenterFaqsetqMTDHOOBYMP7752-52-93 14:35:00 Test Item Value Reference Range Interpretation Comments WBC (test code = WBC) 5.8 3.7-10.4 N [facility] SouthFvacxxaLTKZZMOVH1703-58-85 14:35:00 Test Item Value Reference Range Interpretation Comments AGAP (test code = AGAP) 15.1 10.0-20.0 N [facility] SouthVaftmugUDJNSOLUH3003-23-65 14:35:00 Test Item Value Reference Range Interpretation Comments eGFR (test code = eGFR) 42 [facility] SouthKmjyzljEAHCORPDI2514-20-24 14:35:00 Test Item Value Reference Range Interpretation Comments Calcium Lvl (test code = Calcium Lvl) 8.0 8.5-10.5 L [facility] SouthDyjfjloCZGDFXPPR1101-51-50 14:35:00 Test Item Value Reference Range Interpretation Comments Chloride Lvl (test code = Chloride Lvl) 106 95-109 N [facility] SouthFfkjtrcKICEGFRMX6770-25-67 14:35:00 Test Item Value Reference Range Interpretation Comments CO2 (test code = CO2) 27 24-32 N [facility] SouthDdrnbseIRUKLQLAX7822-70-38 14:35:00 Test Item Value Reference Range Interpretation Comments Glucose Lvl (test code = Glucose Lvl) 140 70-99 H [facility] SouthIymfzxmJGHBFNITQ5066-67-92 14:35:00 Test Item Value Reference Range Interpretation Comments BUN (test code = BUN) 10 7-22 N [facility] SouthIcaehuxGNKILEHMJ2024-71-51 14:35:00 Test Item Value Reference Range Interpretation Comments Potassium Lvl (test code = Potassium 4.1 3.5-5.1 N Lvl) [facility] SouthJucjqzrCHTDCTPPJ9363-47-22 14:35:00 Test Item Value Reference Range Interpretation Comments Sodium Lvl (test code = Sodium Lvl) 144 135-145 N [facility] SouthKsoqizzGVGHGKOTP7307-82-06 14:35:00 Test Item Value Reference Range Interpretation Comments Creatinine Lvl (test code = Creatinine 1.6 0.5-1.4 H Lvl) [facility] CenterUojlkuoVSFSCXNPZJ6902-40-99 14:35:00 Test Item Value Reference Range Interpretation Comments Basophils # (test code 0.1 See_Comment N [Aut omated message] The = Basophils #) system which generated this result tra nsmitted reference range : <=0.2. The reference r corey was not used to int erpret this result as normal/abnormal . [facility] CenterYjhmwmvUONEWETIQV4909-18-40 14:35:00 Test Item Value Reference Range Interpretation Comments Segs (test code = Segs) 73.2 45.0-75.0 N [facility] CenterQhffafwIPHMOZCHBO0798-17-36 14:35:00 Test Item Value Reference Range Interpretation Comments Eosinophils (test code = 2.4 See_Comment N [A utomated message] The Eosinophils) system which ge nerated this result tra nsmitted reference range : <=4.0. The reference r corey was not used to int erpret this result as normal/abnormal . [facility] CenterJbznzyiLMDQXFDMTB4597-62-32 14:35:00 Test Item Value Reference Range Interpretation Comments Lymphocytes (test code = Lymphocytes) 13.7 20.0-40.0 L [facility] CenterQxlgeicSQHMDYMFYT2575-98-21 14:35:00 Test Item Value Reference Range Interpretation Comments Monocytes (test code = Monocytes) 9.8 2.0-12.0 N [facility] CenterNxzoobsDVXRDRHBCJ9032-06-04 14:35:00 Test Item Value Reference Range Interpretation Comments Eosinophils # (test code 0.1 See_Comment N [A utomated message] The = Eosinophils #) system whic h generated this result tra nsmitted reference range : <=0.5. The reference r corey was not used to int erpret this result as normal/abnormal . [facility] CenterWobliwaBBWVZULZOC6911-81-12 14:35:00 Test Item Value Reference Range Interpretation Comments Monocytes # (test code 0.6 See_Comment N [Aut omated message] The = Monocytes #) system which generated this result tra nsmitted reference range : <=0.8. The reference r corey was not used to int erpret this result as normal/abnormal . [facility] CenterLckjnaeDYPMPCBAHT3664-67-00 14:35:00 Test Item Value Reference Range Interpretation Comments Lymphocytes # (test code = Lymphocytes 0.8 1.0-5.5 L #) [facility] CenterFeskccsPABSEITNKG6020-83-64 14:35:00 Test Item Value Reference Range Interpretation Comments Segs-Bands # (test code = Segs-Bands #) 4.2 1.5-8.1 N [facility] CenterCbycvuuKEHZUZCVOC6617-37-51 14:35:00 Test Item Value Reference Range Interpretation Comments Basophils (test code = 0.9 See_Comment N [Aut omated message] The Basophils) system which ge nerated this result tra nsmitted reference range : <=1.0. The reference r corey was not used to int erpret this result as normal/abnormal . [facility] CenterOocpzuxTMJONIUOJJ1951-30-80 14:35:00 Test Item Value Reference Range Interpretation Comments Platelet (test code = Platelet) 116 133-450 L [facility] CenterZhbipozZEOGPXQRTE9765-34-32 14:35:00 Test Item Value Reference Range Interpretation Comments RDW (test code = RDW) 14.2 11.5-14.5 N [facility] CenterKvgsyveAHMFOVSVQK9252-90-45 14:35:00 Test Item Value Reference Range Interpretation Comments MPV (test code = MPV) 7.7 7.4-10.4 N [facility] CenterAtqsfiuNAKVCIVUSK9410-90-82 14:35:00 Test Item Value Reference Range Interpretation Comments Hct (test code = Hct) 33.5 42.0-54.0 L [facility] CenterNilecmyDDSBEIACVJ7555-54-00 14:35:00 Test Item Value Reference Range Interpretation Comments MCV (test code = MCV) 95.6 80.0-94.0 H [facility] CenterUcykgjiTKSQEYXKJZ9735-44-06 14:35:00 Test Item Value Reference Range Interpretation Comments MCHC (test code = MCHC) 34.3 32.0-36.0 N [facility] CenterYcmaehwKJGPFQFNQU2752-18-26 14:35:00 Test Item Value Reference Range Interpretation Comments MCH (test code = MCH) 32.8 pg 27.0-31.0 H [facility] CenterUpilucrFJCHZLCHVP9374-22-22 14:35:00 Test Item Value Reference Range Interpretation Comments Hgb (test code = Hgb) 11.5 14.0-18.0 L [facility] CenterXcirgbzSDTKUDHWIA6479-79-49 14:35:00 Test Item Value Reference Range Interpretation Comments RBC (test code = RBC) 3.51 4.70-6.10 L [facility] CenterDmnhdajOLTJBOUCPB2569-38-79 14:35:00 Test Item Value Reference Range Interpretation Comments WBC (test code = WBC) 5.8 3.7-10.4 N [facility] CNUUZUF3841-06-42 10:50:00 Test Item Value Reference Range Interpretation Comments ABO/Rh (test code = ABO/Rh) A POS [facility] [employer] KGQQTBG1784-11-54 10:50:00 Test Item Value Reference Range Interpretation Comments Antibody Scrn (test Negative (03/03/2013 N code = Antibody Scrn) 05:50:00) [facility] [employer] DYRUGLE6558-18-21 10:50:00 Test Item Value Reference Range Interpretation Comments ABO/Rh (test code = ABO/Rh) A POS [facility] [id number] 10:50:00 Test Item Value Reference Range Interpretation Comments Antibody Scrn (test Negative (03/03/2013 N code = Antibody Scrn) 05:50:00) [facility] GLUCOSE [id number] 14:49:00 Test Item Value Reference Range Interpretation Comments Gluc POC [facility] (test code = Gluc POC 126 70-99 H [facility]) [facility] GLUCOSE [id number] 14:49:00 Test Item Value Reference Range Interpretation Comments Gluc POC Lifscn (test code = Gluc POC 126 70-99 H [facility]) [facility]
[2022-08-07] MEDS ORDERED: KETOROLAC 30 MG/ML INJ ONE (10:33)
[2022-08-07] MEDS ORDERED: HYDROCODONE/APAP 5/325 MG TAB ONE (10:33)
--- NOTE | 2022-08-07 10:56 | EDPHYS ---
Physician Documentation [facility] Name: Demetrius Sarmiento Age: 82 yrs Sex: Male : 1940 Arrival Date: 08/07/2022 Time: 10:07 Bed 8 Private MD: ED Physician Michael Ortega HPI: 08/07 10:15 This 82 yrs old Male presents to ER via EMS with complaints of Leg Pain. jh7 10:15 The patient presents with pain, that is chronic. The complaints affect the left hip and jh7 left leg. Onset: The symptoms/episode began/occurred 1 year(s) ago. Patient complains of chronic left hip and leg pain for the past year. States that it started hurting again this morning. Denies any injury and is able to ambulate without difficulty.. Historical: - Allergies: 10:10 No Known Allergies; mb8 - PMHx: 10:10 Alzheimer's disease; CAD; diabetes mellitus; Hypercholesterolemia; Hypertensive mb8 disorder; [place]; sciatica; - PSHx: 10:10 Nephrectomy; Nerve stimulator; mb8 - Social history:: Smoking status: Patient/guardian denies using tobacco. ROS: 10:15 Constitutional: Negative for fever, chills, and weight loss, Eyes: Negative for injury, jh7 pain, redness, and discharge, Neck: Negative for injury, pain, and swelling, Cardiovascular: Negative for chest pain, palpitations, and edema, Respiratory: Negative for shortness of breath, cough, wheezing, and pleuritic chest pain, Back: Negative for injury and pain, Skin: Negative for injury, rash, and discoloration, Neuro: Negative for headache, weakness, numbness, tingling, and seizure. 10:15 MS/extremity: Positive for pain, Negative for injury or acute deformity, decreased range of motion, swelling, tenderness. 10:15 All other systems are negative. Exam: 10:15 Constitutional: This is a well developed, well nourished patient who is awake, alert, jh7 and in no acute distress. Head/Face: Normocephalic, atraumatic. Neck: Trachea midline, no thyromegaly or masses palpated, and no cervical lymphadenopathy. Supple, full range of motion without nuchal rigidity, or vertebral point tenderness. No Meningismus. Cardiovascular: Regular rate and rhythm with a normal S1 and S2. No gallops, murmurs, or rubs. Normal PMI, no JVD. No pulse deficits. Respiratory: Lungs have equal breath sounds bilaterally, clear to auscultation and percussion. No rales, rhonchi or wheezes noted. No increased work of breathing, no retractions or nasal flaring. Back: No spinal tenderness. No costovertebral tenderness. Full range of motion. Skin: Warm, dry with normal turgor. Normal color with no rashes, no lesions, and no evidence of cellulitis. Neuro: Awake and alert, GCS 15, oriented to person, place, time, and situation. Motor strength 5/5 in all extremities. Sensory grossly intact. Normal gait. 10:15 Musculoskeletal/extremity: ROM: intact in all extremities, Circulation is intact in all extremities. Sensation intact. Weight bearing: able to fully bear weight, without difficulty, Left leg and hip pain that is not well localized. No signs of trauma seen on exam. NVI, full ROM. Vital Signs: 10:08 BP 132 / 99; Pulse 99; Resp 18; Temp 97.9; Pulse Ox 98% ; Pain 10/10; mb8 11:05 mb8 11:05 refused vitals for discharge mb8 MDM: 10:15 Patient medically screened. [facility] 10:45 Differential diagnosis: tendonitis, Chronic pain. Data reviewed: vital signs, nurses [facility] notes. Data interpreted: Pulse oximetry: is 98 %. Interpretation: normal. Counseling: I had a detailed discussion with the patient and/or guardian regarding: the historical points, exam findings, and any diagnostic results supporting the discharge/admit diagnosis, to return to the emergency department if symptoms worsen or persist or if there are any questions or concerns that arise at home. Administered Medications: 10:24 Drug: Ketorolac 30 mg Route: IM; Site: right deltoid; mb8 10:25 Drug: HYDROcodone-acetaminophen 5 mg-325 mg 1 tabs Route: PO; mb8 Disposition Summary: 08/07/22 10:55 Discharge Ordered Location: Home [facility] Problem: new [facility] Symptoms: have improved [facility] Condition: Stable [facility] Diagnosis - Pain in left leg [facility] Followup: [facility] - With: Private Physician - When: 2 - 3 days - Reason: Recheck today's complaints Discharge Instructions: - Discharge Summary Sheet jh7 - Musculoskeletal Pain [facility] Forms: - Medication Reconciliation Form 7 - Thank You Letter [facility] Signatures: Halle Villalta FNP FNP [facility] Rohit Lagunas RN RN mb8
--- NOTE | 2022-08-07 10:56 | ER ---
Nurse's Notes [facility] Name: Demetrius Sarmiento Age: 82 yrs Sex: Male : 1940 Arrival Date: 08/07/2022 Time: 10:07 Bed 8 Private MD: Diagnosis: Pain in left leg Presentation: 08/07 10:08 Chief complaint: Patient states: left hip and left leg pain on going for 1 year, denies mb8 any injury. Coronavirus screen: Vaccine status: Patient reports receiving the 2nd dose of the covid vaccine. Ebola Screen: Patient negative for fever greater than or equal to 101.5 degrees Fahrenheit, and additional compatible Ebola Virus Disease symptoms Patient denies exposure to infectious person. Patient denies travel to an Ebola-affected area in the 21 days before illness onset. Initial Sepsis Screen: Does the patient meet any 2 criteria? HR > 90 bpm. Does the patient have a suspected source of infection? No. Patient's initial sepsis screen is negative. Risk Assessment: Do you want to hurt yourself or someone else? Patient reports no desire to harm self or others. Onset of symptoms is unknown. 10:08 Method Of Arrival: EMS mb8 10:08 Acuity: LANCE 4 mb8 Triage Assessment: 10:10 General: Appears in no apparent distress. Behavior is calm. mb8 Historical: - Allergies: 10:10 No Known Allergies; mb8 - PMHx: 10:10 Alzheimer's disease; CAD; diabetes mellitus; Hypercholesterolemia; Hypertensive mb8 disorder; [place]; sciatica; - PSHx: 10:10 Nephrectomy; Nerve stimulator; mb8 - Social history:: Smoking status: Patient/guardian denies using tobacco. Screenin:12 Abuse screen: Denies threats or abuse. Denies injuries from another. Nutritional mb8 screening: No deficits noted. Tuberculosis screening: No symptoms or risk factors identified. Fall Risk Fall in past 12 months (25 points). Secondary diagnosis (15 points) No IV (0 pts). Ambulatory Aid- None/Bed Rest/Nurse Assist (0 pts). Gait- Weak (10 pts.). Mental Status- Oriented to own ability (0 pts). Total Torres Fall Scale indicates Low Risk Score (25-44 pts). Fall prevention measures have been instituted. Side Rails Up X 2 As available Patient and Family Educated on Fall Prevention Program and strategies. Assessment: 10:11 Pain: Complains of pain in left leg Pain currently is 10 out of 10 on a pain scale. mb8 Quality of pain is described as aching, Pain began years ago. Musculoskeletal: Circulation, motion, and sensation intact. Capillary refill < 3 seconds, Range of motion: intact in all extremities, Patient weight bearing and ambulatory Reports pain in left leg. 11:05 Reassessment: Patient will not stay in his room. Patient states "its too cold in there" mb8 despite already being given a warm blanket and offered to ge more for the patient. Patient redirected to his room 3 different times and each time kept leaving the room. Vital Signs: 10:08 BP 132 / 99; Pulse 99; Resp 18; Temp 97.9; Pulse Ox 98% ; Pain 10/10; mb8 11:05 mb8 11:05 refused vitals for discharge mb8 ED Course: 10:07 Patient arrived in ED. mb8 10:10 Triage completed. mb8 10:11 Arm band placed on. mb8 10:12 Patient has correct armband on for positive identification. Bed in low position. Call mb8 light in reach. Side rails up X2. Client placed on continuous cardiac and pulse oximetry monitoring. NIBP monitoring applied. 10:12 No provider procedures requiring assistance completed. mb8 10:13 Rohit Lagunas, HERBIE is Primary Nurse. mb8 10:15 [facility]alle Villalta FNP [facility] 7 10:15 Michael Ortega MD is Attending Physician. [facility] 11:09 Patient did not have IV access during this emergency room visit. mb8 Administered Medications: 10:24 Drug: Ketorolac 30 mg Route: IM; Site: right deltoid; mb8 10:25 Drug: HYDROcodone-acetaminophen 5 mg-325 mg 1 tabs Route: PO; mb8 Medication: 10:12 VIS not applicable for this client. mb8 Outcome: 10:55 Discharge ordered by . [facility] 11:08 Discharged to home via wheelchair. mb8 11:08 Condition: stable 11:08 Condition: stable 11:08 Discharge instructions given to patient, Instructed on discharge instructions, follow up and referral plans. Demonstrated understanding of instructions, follow-up care. 11:09 Patient left the ED. mb8 Signatures: Halle Villalta FNP SPOOLING MACHINE OPERATOR [facility] Rohit Lagunas RN RN mb8 Corrections: (The following items were deleted from the chart) 11:08 11:08 General: Appears mb8 mb8
[2022-08-09 03:37] VITALS: BP 132/99; TEMP 97.9; O2SAT 98
== END 2022-08-07 11:09 | disposition home or self-care (01) ==
LOC: ER 10:03
DX: M79.605 Pain in left leg (principal); G30.9 Alzheimer's disease, unspecified; F02.80 Dementia in other diseases classified elsewhere, unspecified severity, without behavioral disturbance, psychotic disturbance, mood disturbance, and anxiety; I10 Essential (primary) hypertension
CPT/HCPCS: 96372; 99283

== ENCOUNTER 2022-08-22 03:11 | Inpatient (IN) | payer OTHER ==
[2022-08-22] MEDS ORDERED: D5W 100 ML IV ONE ×2 (03:18→23:26)
[2022-08-22] MEDS ORDERED: AMIODARONE HCL 150 MG/3 ML INJ IV ONE ×2 (03:18→23:25)
[2022-08-22] MEDS ORDERED: NA CHLORIDE 0.9% 1,000 ML ONE (03:24)
[2022-08-22] MEDS ORDERED: NOREPINEPHRINE BITARTRATE/D5W 4 MG/250 ML BAG IV ONE (03:36)
--- OUTSIDE RECORDS SUMMARY | 2022-08-22 03:37 | XMS REPORT | Continuity of Care Document ---
:1940 Author Organization [facility] t Address [address] [place] [address] Care Team Providers Name Role Phone Jono [...] JAYSON AGUILAR Attending Clinician Unavailable Doctor Unassigned, [place] Attending Clinician Unavailable AIDA SHAH Attending Clinician Unavailable Martha Drake MD Attending Clinician Aida Shah MD Attending Clinician Pcp, Patient Does Not Have A Attending Clinician [phone] Nallely Meeks Attending Clinician Charanjit Heck MD Attending Clinician Jamel Flores MD Attending Clinician Ariel STONER, Sherrell Attending Clinician Babar SUPERVISOR AGENCY APPOINTMENTS, Sallie Attending Clinician JAMEL FLORES Attending Clinician [...] Expiration Date Stacy torres [facility] [id number] 2020 00:00:00 [facility] [id number] 2019 DUAL COMPLETE HMO 00:00:00 [place]ICAID OF [place] [id number] 2018 00:00:00 Problems Condition Condition Condition Status Onset Resolution Last Treating Co mments Source Name Details Category Date Date Treatment Clinician Date 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 7-21 it y of d severe d severe 00:00: [place] protein-ca protein-ca 00 Me dical sindhu sindhu Branch malnutriti malnutriti on on Dyslipidem Dyslipidem Disease Active U nivers ia ia 7-20 ity of 00:00: [place] [address] Medical Branch Elevated Elevated Disease Active Unive [...] rs troponin troponin 7-19 ity of 00:00: [place] [address] Medical Branch Left hip Left hip Disease Active Unive rs pain pain 7-09 ity of 00:00: [place] [address] Medical Branch STEMI STEMI Diagnosis Active 2022-03-18 Mem oria Active 420 21:49:00 l 03/05/2022 00:00: Titus calderon [address] Unstable Unstable Disease Active 2019-0 Unive rs angina angina 5-07 ity of 00:00: [place] [address] Medical Branch ALBA (acute ALBA (acute Disease Active 2020-0 U nivers kidney kidney 4-21 ity of injury) injury) 00:00: [place] [address] Medical Branch Chest pain Chest pain Disease Active 2020-0 U nivers 4-21 ity of 00:00: [place] [address] Medical Branch Chest pain Chest pain Disease Active 2020-0 U 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 4-15 it y of 00:00: [place] [address] Medical Branch Chronic Chronic Disease Active 2020-0 [facility] PNA PNA Disease [...] 2018-11 Univers 0-23 ity of 00:00: [place] 00 Medical Branch CHF CHF Disease Active [...] on on 00:00: [place] 00 Medical Branch Acute on [...] mellitus mellitus 00:00: Hospit a 00 l Essential Essential Disease Active Met hodi hypertensi hypertensi 1-28 st on on 00:00: Hospita 00 l Elevated Elevated Disease Active Unive rs troponin I troponin I 1-27 it y of level level 00:00: [place] 00 Medical Branch DE LA CRUZ DE LA CRUZ Disease Active Univers (dyspnea (dyspnea 1-27 ity of on on 00:00: [place] exertion) exertion) 00 Medi birdie Branch Coronary Coronary Disease Active Unive rs artery artery 1-27 ity of disease disease 00:00: [place] involving involving 00 Medi birdie crow crow Branch coronary 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crow 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 00:00: [place] disease disease 00 Medical Branch Coronary Coronary Disease Active Unive rs artery artery 1-27 ity of disease disease 00:00: [place] involving involving 00 Medi birdie crow crow Branch coronary 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crow crow heart heart without without angina angina pectoris [...] 10:52:00 l Active 00:00: [place] 02/04/2013 00 [facility] 569.3 569.3 Diagnosis Active 2013-02-03 Mem oria Active 01-24 09:00:00 l 01/24/2013 00:00: Titus calderon [address] Sleep Sleep Problem Resolve 2022-03-12 Manjit greg apnea apnea d 23:51:00 l (finding) (finding) Herm sana Resolved Problem 03/12/2022 [facility] Diabetes Diabetes Problem Active 2022-03-12 Memoria mellitus mellitus 23:51:00 l (disorder) (disorder) He rmann Active Problem 03/12/2022 [facility] Chronic Chronic Problem Active 2022-03-12 Me moria back pain back pain 23:51:00 l (disorder) (disorder) [place] Active Problem 03/12/2022 [facility] Continuous Continuou Problem Active 2022-03-12 Memoria 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:51: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 He rmann (disorder) (disorder) Active Problem 03/12/2022 [facility] Datatype(D Datatype( Diagnosis Active 2013-02-03 Memoria G1.4)- DG1.4)- 09:00:00 l Active Titus [facility] Datatype(D Diagnosis Active 2013-03-04 Memoria G1.4)- Datatype(D 10:52:00 l G1.4)- [place] Active [facility] DM DM Problem Resolve 2013-03-09 Manjit greg (diabetes (diabetes d 20:26:01 l mellitus) mellitus) Herm sana Resolved Problem 03/09/2013 [facility] Heart Heart Problem Resolve 2013-03-09 Manjit greg attack attack d 20:26:01 l Resolved [place] Problem 03/09/2013 [facility] HTN HTN Problem Resolve 2013-03-09 Manjit greg Resolved d 20:26:01 l Problem [place] 03/09/2013 [facility] Sleep Sleep Problem Resolve 2013-03-09 Manjit greg apnea apnea d 20:26:01 l Resolved [place] Problem 03/09/2013 [facility] Acute Acute Problem Resolve 2022-03-12 Manjit greg myocardial myocardial d 23:51:00 l infarction infarction He rmann (disorder) (disorder) Resolved Problem 03/12/2022 [facility] Allergies, Adverse Reactions, Alerts Allergy Allergy Status Severity Reaction(s) Onset Inactive Treating Comm ents Source Name Type Date Date Clinician No Known DA Active U [facility] Allergie 1- Clear s 00:00: [place] 00 [facility] NO KNOWN Drug Active Univers ALLERGIE Class ity of [facility] Family History Family Member Diagnosis Comments Start Date Stop Date Source Natural father Heart disease [facility] Natural father Seizures [facility] Natural mother Alzheimer's disease [facility] Natural mother Cancer [facility] Social History Social Habit Start Date Stop Date Quantity Comments Source History of tobacco User of Univer sity of use smokeless [facility] [place] [facility] tobacco [place] Exposure to 2022-07-02 2022-07-12 Not sure [facility] SARS-CoV-2 (event) 00:00:00 00:32:00 [facility] Cigarette 2022-06-03 2022-06-03 University of pack-years 00:00:00 00:00:00 [facility] Alcohol intake 2021-12-25 2021-12-25 Current [facility]ast[facility] 00:00:00 00:00:00 non-drinker of Hospital alcohol (finding) Cigarettes smoked 2018-10-27 2018-10-27 [facility] current (pack per 00:00:00 00:00:00 Hospita l day) - Reported Tobacco use and 2018-10-27 2018-10-27 Smokeless [facility]astaf[facility] exposure 00:00:00 00:00:00 tobacco non-user [facility] Sex Assigned At [birth year] [facility] 00:00:00 00:00:00 Hospital Smoking Status Start Date Stop Date Source Ex-smoker 2018-10-27 00:00:00 2018-10-27 00:00:00 [facility] Medications Ordered Filled Start Stop Current Ordering Indication Dosage Frequency Signature Comments Components Source Medication Medication Date Date Medication? Clinician (SIG) Name Name acetaminoph No 1000mg 1,000 mg, Univers en 07-12 Oral, ity of (TYLENOL) 06:45: 05:37 ONCE, 1 [place] tablet 00 :00 dose, On Medical 1,000 mg Sat [place] 07/12/22 at 0145, Routine aspirin 81 Yes 81mg Take 1 Unive rs mg EC 7- tablet by ity of tablet 00:00: mouth in [place] 00 the Medical morning. Branch metoprolol Yes 25mg Take 1 Unive rs succinate 7-27 tablet by ity o f XL 25 mg 24 00:00: mouth [place] hr tablet 00 the Medical morning. Branch spironolact Yes 12.5mg Take 0.5 Univers one 25 mg 7-27 tablets by ity of tablet 00:00: mouth in [place] 00 the Medical morning. Branch aspirin 81 2021-0 Yes 81mg Take 1 Unive rs mg EC 7-27 tablet by ity of tablet 00:00: mouth in [place] 00 the Medical morning. Branch metoprolol 0 Yes 25mg Take 1 Unive rs succinate 7-27 tablet by ity o f XL 25 mg 24 00:00: mouth in [place] hr tablet 00 the Medical morning. Branch spironolact 0 Yes 12.5mg Take 0.5 Univers one 25 mg 7-27 tablets by ity of tablet 00:00: mouth in [place] 00 the Medical morning. Branch aspirin 81 0 Yes 81mg Take 1 Unive rs mg EC 7-27 tablet by ity of tablet 00:00: mouth in [place] 00 the Medical morning. Branch metoprolol Yes 25mg Take 1 Unive rs succinate 7-27 tablet by ity o f XL 25 mg 24 00:00: mouth [place] hr tablet 00 the Medical morning. Branch spironolact Yes 12.5mg Take 0.5 Univers one 25 mg 7-27 tablets by ity of tablet 00:00: mouth in [place] 00 the Medical morning. Branch nitroglycer 2021- No .4mg Take 0.4 U nivers in - 07-26 mg by ity of (NITRO-TIME 12:34: 00:00 mouth [place] ORAL) 19 :00 needed for Medical Other Branch (chest pain every 5 minutes x 3 doses). donepeziL 5 2021- No 5mg Take 5 mg Univers mg tablet 06-10- by mouth ity o f 12:34: 00:00 at [place] 19 :00 bedtime. Medical Branch atorvastati 2021-2021- No 40mg Take 40 mg Univers n 40 mg 06-10- by mouth ity of tablet 12:34: 00:00 at [place] 19 :00 bedtime. Medical Branch gabapentin 2021-2021- No 100mg Take 100 U nivers 300 mg -10 06-26 mg by ity of capsule 12:34: 00:00 mouth in [place] 19 :00 the Medical morning Branch and 100 mg at noon and 100 mg in the evening. empaglifloz 2022-0 2021- No 10mg Take 10 mg Univers in - 07- by mouth ity of (JARDIANCE) 12:34: 00:00 daily. [place] 10 mg 19 :00 Medical Branch cyclobenzap 2-0 Yes 10mg Take 1 Univ ers rine 10 mg 7-26 tablet by ity of tablet 00:00: mouth in [place] 00 the Medical morning Branch and 1 tablet at noon and 1 tablet in the evening. docusate 2022-0 Yes 100mg Take 1 Univer s 100 mg 7-26 capsule by ity of capsule 00:00: mouth in [place] 00 the Medical morning Branch and 1 capsule in the evening. atorvastati 2-0 Yes 40mg Take 1 Univ ers n 40 mg 7-26 tablet by ity of tablet 00:00: mouth at [place] [address] bedtime. Medical Branch donepeziL 5 2021-0 Yes 5mg Take 1 Univ ers mg tablet - tablet by ity o f 00:00: mouth at [place] [address] bedtime. Medical Branch empaglifloz 2021-0 Yes 10mg Take 1 Univ ers in - tablet by ity of (JARDIANCE) 00:00: mouth in [place] 10 mg 00 the Medical morning. Branch furosemide 2021-0 Yes 20mg Take 1 Unive rs 20 mg -26 tablet by ity of tablet 00:00: mouth in [place] 00 the Medical morning. Branch HYDROcodone 2021-0 Yes 1{tbl} Take 1 Un mel -acetaminop 7-26 tablet by ity of hen 5-325 00:00: mouth [place] mg tablet 00 every 6 Medical (six) Branch hours as needed for Pain (scale 7-10). cyclobenzap 2-0 Yes 10mg Take 1 Univ ers rine 10 mg 7-26 tablet by ity of tablet 00:00: mouth in [place] 00 the Medical morning Branch and 1 tablet at noon and 1 tablet in the evening. docusate 2022-0 Yes 100mg Take 1 Univer s 100 mg 7-26 capsule by ity of capsule 00:00: mouth in [place] 00 the Medical morning Branch and 1 capsule in the evening. atorvastati 2022-0 Yes 40mg Take 1 Univ ers n 40 mg 7-26 tablet by ity of tablet 00:00: mouth at [place] [address] bedtime. Medical Branch donepeziL 5 2-0 Yes 5mg Take 1 Univ ers mg tablet 7-26 tablet by ity o f 00:00: mouth at [place] [address] bedtime. Medical Branch empaglifloz 2-0 Yes 10mg Take 1 Univ ers in 7-26 tablet by ity of (JARDIANCE) 00:00: mouth in [place] 10 mg 00 the Medical morning. Branch furosemide 2-0 Yes 20mg Take 1 Unive rs 20 mg 7-26 tablet by ity of tablet 00:00: mouth in [place] 00 the Medical morning. Branch HYDROcodone 2021-0 Yes 1{tbl} Take 1 Un mel -acetaminop 7-26 tablet by ity of hen 5-325 00:00: mouth [place] mg tablet 00 every 6 Medical (six) Branch hours as needed for Pain (scale 7-10). cyclobenzap 2022-0 Yes 10mg Take 1 Univ ers rine 10 mg 7-26 tablet by ity of tablet 00:00: mouth in [place] 00 the Medical morning Branch and 1 tablet at noon and 1 tablet in the evening. docusate 2022-0 Yes 100mg Take 1 Univer s 100 mg 7-26 capsule by ity of capsule 00:00: mouth in [place] 00 the Medical morning Branch and 1 capsule in the evening. atorvastati 2022-0 Yes 40mg Take 1 Univ ers n 40 mg 7-26 tablet by ity of tablet 00:00: mouth at [place] [address] bedtime. Medical Branch donepeziL 5 2-0 Yes 5mg Take 1 Univ ers mg tablet 7-26 tablet by ity o f 00:00: mouth at [place] [address] bedtime. Medical Branch empaglifloz 2-0 Yes 10mg Take 1 Univ ers in 7-26 tablet by ity of (JARDIANCE) 00:00: mouth in [place] 10 mg 00 the Medical morning. Branch furosemide 2022-0 Yes 20mg Take 1 Unive rs 20 mg 7-26 tablet by ity of tablet 00:00: mouth in [place] 00 the Medical morning. Branch HYDROcodone 2-0 Yes 1{tbl} Take 1 Un mel -acetaminop 7-26 tablet by ity of hen 5-325 00:00: mouth [place] mg tablet 00 every 6 Medical (six) Branch hours as needed for Pain (scale 7-10). cyclobenzap Yes 10mg 10 mg, Univ ers rine 7-25 Oral, TID, ity of (FLEXERIL) 19:00: First dose [place] tablet 10 00 on [facility] Medical mg 06/09/22 at Branch 1400, Until Discontinu ed, Routine aspirin EC Yes 81mg 81 mg, Unive rs tablet 81 25 Oral, ity of mg 14:00: DAILY, [place] 00 First dose Medical on Thu Branch 06/09/22 at 0900, Until Discontinu ed, Routine NaCl 0.9% 2021- No 500mL at 50 Unive rs (NS) IV 06-0824 mL/hr, IV ity of infusion 21:45: 21:06 Infusion, [place] 500 mL 00 :00 ONCE, 1 Medical dose, On Branch [place] 06/08/22 at 1645, Routine Sliding Yes Subcutaneo Univ ers Scale 7-24 us, Q4H, ity of Insulin - 20:00: First dose [place] Lispro 00 on [facility] (HumaLOG) + 06/08/22 at Br anch Fsbg 1500, Testing Until Discontinu ed, Routine metoprolol Yes 25mg 25 mg, Unive rs succinate 06-08 Oral, ity of XL (TOPROL 14:00: DAILY, [place] XL) tablet 00 First dose Med ical 25 mg (after Branch last modificati on) on [place] 06/08/22 at 0900, Until Discontinu ed, Routine furosemide 2021- No 80mg 80 mg, Univ ers (LASIX) 06-06 Oral, ity of tablet 80 14:00: 19:53 QAM+PM, [place] mg 00 :33 First dose Medical on Thu Branch 06/06/22 at 0900, Until Discontinu ed, Routine traMADoL 2021- No 50mg 50 mg, Univer s (ULTRAM) 06-06 Oral, ity of tablet 50 05:00: 04:59 Q8HPRN, [place] mg 00 :00 Starting Medical on Thu06/06/22 at 0000, Until 06/07/22 at 2359, Routine, Pain (scale 4-6) morpHINE (2 2021- No 2mg 2 mg, Slow Univers mg/mL) 06-05 IV Push, ity of injection 2 07:15: 06:18 ONCE, 1 [place] mg 00 :00 [facility] at 0215, Routine morpHINE (2 2021- No 2mg 2 mg, Slow Univers mg/mL) 06-05 IV Push, ity of injection 2 06:00: 04:51 ONCE, 1 [place] mg 00 :00 dose, On [facility] Branch 06/05/22 at 0100, Routine donepeziL Yes 5mg 5 mg, Univers (ARICEPT) 06-05 Oral, QHS, ity of tablet 5 mg 02:00: First dose [place] 00 on [facility] 06/04/22 at Branch 2100, Until Discontinu ed, Routine acetaminoph Yes 1000mg 1,000 mg, Univers en 06-04 Oral, Q8H, ity of (TYLENOL) 19:15: First dose [place] tablet 00 on Thu [facility] 1,000 mg 06/04/22 at [facility] h 1415, Until Discontinu ed, Routine sulfur 2021- No [id number] 5mL 5 mL, Unive rs hexafluorid 06-04 Intravenou i ty of e microsphr 19:15: 19:15 s, ONCE, 1 [place] (LUMASON) 00 :00 dose, On Medica l injection 5 Thu Branch mL 06/04/22 at 1415, Routine
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 Restricted medication : ALEXANDRA STEPHENSON [...] 10mg 10 mg, Uni vers in 06-04 0724 Oral, ity of (JARDIANCE) 14:00: 20:35 DAILY, [...] Branch 0800, Until Discontinu ed, Routine docusate No 100mg 100 mg, Univ ers (COLACE) 06-04 0721 Oral, BID, ity of capsule 100 13:00: 13:55 First dose [place] mg 00 :04 on Thu Medical 06/04/22 at Branch 0800, Until Discontinu ed, Routine Sliding 2021- No Subcutaneo Uni vers Scale 06-04 07-24 us, AC+HS, ity of Insulin-Reg 12:30: 19:58 First dose [place] ular + Fsbg 00 :14 on Thu [...] IV Push, ity of (PF)) 02:20: Q6HPRN, [place] injection 4 23 Starting Medi birdie mg on Thu Branch 06/03/22 at 2120, Until Discontinu ed, Routine, Nausea and Vomiting (N/V) morpHINE (2 2021- No 2mg 2 mg, Slow Univers mg/mL) 06-0420 IV Push, ity of injection 2 02:20: 15:28 Q4HPRN, [place] mg 05 :35 Starting Medical on Thu Branch 06/03/22 at 2120, Until Thu06/04/22 at 1028, Routine, Pain (scale 7-10) acetaminoph 2021- No 650mg 650 mg, U nivers en 06-0420 Oral, ity of (TYLENOL) 02:20: 19:06 Q6HPRN, [facility] s tablet 650 01 :54 Starting Medic al mg on Thu Branch 06/03/22 at 2120, Until Thu06/04/22 at 1406, Routine, Pain (scale 1-3) dextrose Yes 250mL 250 mL, IV Un mel 10% (D10W) 06-04 Infusion, ity of bolus 02:18: PRN - SEE [place] infusion 29 INSTRUCTIO Medic al 250 mL NS, Branch Administer over 60 Minutes, Other, If blood glucose is < or = 70 mg/dL and patient is unable to swallow or has mental status changes, Starting on 06/03/22 at 8
If blood glucose is < or = [...] glucose is < 80 mg/dL, repeat.
glucagon 0 Yes 1mg 1 mg, Univers (GLUCAGEN 06-04 Intramuscu ity of DIAGNOSTIC 02:18: lar, PRN, [place] KIT) 26 Starting Medical injection [address] [facility] 06/03/22 at 2118, Until Discontinu ed, ADAMA, Blood Glucose < or = 70 mg/dL and patient is unable to swallow or has mental changes. gabapentin Yes 100mg 100 mg, Uni vers (NEURONTIN) 20 Oral, TID, it y of capsule 100 02:15: First dose [place] mg 00 on [facility] 06/03/22 at Branch 2115, Until Discontinu ed, Routine atorvastati Yes 40mg 40 mg, Univ ers n (LIPITOR) 7-20 Oral, QHS, it y of tablet 40 02:15: First dose [place] mg 00 on [facility] 06/03/22 at Branch 2115, Until Discontinu ed, Routine QUEtiapine 0 Yes 25mg 25 mg, Unive rs (SEROQUEL) 06-04 Oral, ity of tablet 25 02:07: QHSPRN, [place] mg 11 Starting Medical on [facility] 06/03/22 at 2107, Until Discontinu ed, Routine, agitation/ insomnia traMADoL 2021-0 No 50mg 50 mg, Univer s (ULTRAM) 06-04 07-21 Oral, ity of tablet 50 01:06: 22:16 Q8HPRN, [place] mg 10 :44 Starting Medical on [facility] 06/03/22 at 2006, Until Madhavi 06/05/22 at 1716, Routine, Pain (scale 4-6) morpHINE (4 No 4mg 4 mg, Slow Univers mg/mL) 06-03 IV Push, ity of injection 4 19:30: 18:37 ONCE, 1 [place] mg 00 :00 dose, On [facility] 06/03/22 at 1430, Routine metoprolol 2021- No 50mg 50 mg, Univ ers tartrate 06-03 Oral, ity of (LOPRESSOR) 18:45: 19:43 ONCE, 1 [place] tablet 50 00 :00 dose, On Medica l mg [facility] 06/03/22 at 1345, Routine metoprolol No 5mg 5 mg, Slow Univers (LOPRESSOR) 06-03 IV Push, ity of injection 5 17:45: 17:40 ONCE, 1 [place] mg 00 :00 dose, On Medical [facility] 06/03/22 at 1245, ADAMA FENTanyl PF No 100ug 100 mcg, Univers (SUBLIMAZE 06-03 Slow IV ity o f (PF)) 14:45: 14:47 Push, [place] injection 00 :00 ONCE, 1 Medical 100 mcg dose, On Branch [facility] 06/03/22 at 0945, Routine nitroglycer Yes .4mg Take 0.4 Un mel in 7-16 mg by ity of (NITRO-TIME 16:29: mouth as [place] ORAL) 51 needed for Medical Other Branch (chest pain every 5 minutes x 3 doses). donepeziL 5 Yes 5mg Take 5 mg U nivers mg tablet 7-16 by mouth ity of 16:29: at [place] [address] bedtime. Medical Branch atorvastati Yes 40mg Take 40 mg Univers n 40 mg 7-16 by mouth ity of tablet 16:29: at [place] [address] bedtime. Medical Branch gabapentin Yes 100mg Take 100 Un mel 300 mg 7-16 mg by ity of capsule 16:29: mouth in [place] [address] the Medical morning Branch and 100 mg [...] 7-16 by mouth ity of 16:29: at [place] [address] bedtime. Medical Branch atorvastati 0 Yes 40mg Take 40 mg Univers n 40 mg 7-16 by mouth ity of tablet 16:29: at [place] [address] bedtime. Medical Branch gabapentin Yes 100mg Take 100 Un mel 300 mg 7-16 mg by ity of capsule 16:29: mouth in [place] [address] the Medical morning Branch and 100 mg [...] by ity of tablet 00:00: mouth in [place] [address] the Medical morning. Branch lidocaine 5 Yes 3{patch Apply 3 Univers % (700 7-16 } Patches to ity of mg/patch) 00:00: area(s) in [place] patch 00 the Medical morning. Branch clopidogreL Yes 75mg Take 1 Univ ers 75 mg 7-16 tablet by ity of tablet 00:00: mouth in [place] [address] the Medical morning. Branch aspirin 81 Yes 81mg Take 1 Unive rs mg chewable 7-16 tablet by ity of tablet 00:00: mouth in [place] [address] the Medical morning. Branch metoprolol 2022-0 Yes 12.5mg Take 0.5 U nivers succinate 7-16 tablets by ity of XL 25 mg 24 00:00: mouth in [place] hr tablet 00 the Medical morning. Branch spironolact 2021-0 Yes 12.5mg Take 0.5 Univers one 25 mg 7-16 tablets by ity of tablet 00:00: mouth in [place] 00 the Medical morning. Branch lidocaine 5 2021-0 Yes 3{patch Apply 3 Univers % (700 7-16 } Patches to ity of mg/patch) 00:00: area(s) in [place] patch 00 the Medical morning. Branch clopidogreL 2021-0 Yes 75mg Take 1 Univ ers 75 mg 7-16 tablet by ity of tablet 00:00: mouth in [place] 00 the Medical morning. Branch aspirin 81 2021-0 Yes 81mg Take 1 Unive rs mg chewable 7-16 tablet by ity of tablet 00:00: mouth in [place] 00 the Medical morning. Branch metoprolol 2021-0 Yes 12.5mg Take 0.5 U nivers succinate 7-16 tablets by ity of XL 25 mg 24 00:00: mouth in [place] hr tablet 00 the Medical morning. Branch spironolact 2021-0 2021- No 12.5mg Take 0.5 Univers one 25 mg 7-16 07-26 tablets by ity of tablet 00:00: 00:00 mouth in [place] 00 :00 the Medical morning. Branch lidocaine 5 2021-0 2022- No 3{patch Apply 3 Univers % (700 7-16 07-26 } Patches to ity of mg/patch) 00:00: 00:00 area(s) in [place] patch 00 :00 the Medical morning. Branch clopidogreL 2021-0 2- No 75mg Take 1 Uni vers 75 mg 7-16 07-26 tablet by ity of tablet 00:00: 00:00 mouth in [place] 00 :00 the Medical morning. Branch aspirin 81 2021-0 2- No 81mg Take 1 Univ ers mg chewable 7-16 07-26 tablet by it y of tablet 00:00: 00:00 mouth in [place] 00 :00 the Medical morning. Branch metoprolol 2021-0 2- No 12.5mg Take 0.5 Univers succinate [...] ity o f 16:26: 00:00 in the [place] 33 :00 morning. Medical Branch isosorbide 2021-2021- [...] by ity of capsule 00:00: mouth in [place] 00 the Medical morning Branch and 1 capsule in the evening. furosemide Yes 80mg Take 1 Unive rs 80 mg 7-15 tablet by ity of tablet 00:00: mouth [place] [address] every Medical morning Branch and evening. docusate [...] spironolact Yes 12.5mg 12.5 mg, Univers one - Oral, ity of (ALDACTONE) 20:00: DAILY, [place] tablet 12.5 00 First dose Me dical mg on Madhavi Branch 05/29/22 at 1500, Until Discontinu ed, Routine methocarbam No 500mg 500 mg, U nivers oL 05-29- Oral, ity of (ROBAXIN) 09:44: 13:02 Q4HPRN, [place] tablet 500 52 :28 Starting Medic al mg on Thu05/29/22 at 0444, Until Thu05/30/22 at 0802, Routine, Muscle Spasms morpHINE (2 2021-0 Yes 2mg 2 mg, Slow Univers mg/mL) 05-28 IV Push, ity of injection 2 22:15: Q6HPRN, [place] mg 00 Starting Medical on Thu05/28/22 at 1715, Until Discontinu ed, Routine, Pain (scale 7-10) oxyCODONE-a 2021-0 Yes 1{tbl} 1 tablet, Univers cetaminophe 05-28 [...] at 1700, Until Discontinu ed, Routine metoprolol 2021-0 Yes 12.5mg 12.5 mg, U nivers succinate 05-28 Oral, ity of XL (TOPROL 20:15: DAILY, [place] XL) tablet 00 First dose Med ical [...] BIDPRN, [place] mg 00 Starting Medical on [facility] 05/27/22 at 1345, Until Discontinu ed, Routine, agitation, anxiety QUEtiapine 2021- No 25mg 25 mg, Univ ers (SEROQUEL) 05-27 Oral, BID, it y of tablet 25 13:00: 18:31 First dose [place] mg 00 :35 on [facility] 05/27/22 at Branch 0800, Until Discontinu ed, Routine HYDROcodone 2021- No 1{tbl} 1 tablet, Univers -acetaminop 05-27 Oral, ity of hen (NORCO) 05:49: 22:09 Q4HPRN, [place] 10-325 mg 42 :14 Starting Medica l tablet 1 on [facility] tablet 05/27/22 at 0049, Until Thu05/28/22 at 1709, Routine, Pain (scale 4-6) morpHINE (4 No 4mg 4 mg, Slow Univers mg/mL) 05-27 IV Push, ity of injection 4 05:49: 22:09 Q4HPRN, [place] mg 29 :14 Starting Medical on [facility] 05/27/22 at 0049, Until Thu05/28/22 at 1709, Routine, Pain (scale 7-10) QUEtiapine No 25mg 25 mg, Univ ers (SEROQUEL) 05-26 Oral, ity of tablet 25 23:30: 23:25 ONCE, 1 [place] mg [place] :00 dose, On Medical [facility] 05/26/22 at 1830, Routine sulfur 2021- No [id number] 5mL 5 mL, [facility] rs hexafluorid 05-26 Intravenou i ty of e microsphr 15:00: 15:00 s, ONCE, 1 [place] (LUMASON) 00 :00 dose, On Medica l injection 5 [facility] mL 05/26/22 at 1000, Routine
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 Restricted medication : KITTY GAGE clopidogreL Yes 75mg 75 mg, Univ ers (PLAVIX) 75 05-26 Oral, ity of mg tablet 14:00: DAILY, [place] 75 mg 00 First dose Medical on [facility] 05/26/22 at 0900, Until Discontinu ed, Routine aspirin Yes 81mg 81 mg, Univers chewable 05-26 Oral, ity of tablet 81 14:00: DAILY, [place] mg 00 First dose Medical on [facility] 05/26/22 at 0900, Until Discontinu ed, Routine ketorolac 2021- No 15mg 15 mg, Unive rs (TORADOL) 05-25 Slow IV ity of injection 21:45: 21:01 Push, [place] 15 mg 00 :00 ONCE, 1 Medical dose, On [facility] 05/25/22 at 1645, Routine ALPRAZolam 2021- No .25mg 0.25 mg, U nivers (XANAX) 05-25 Oral, ity of tablet 0.25 21:45: 21:01 ONCE, 1 [place] mg 00 :00 dose, On [facility] 05/25/22 at 1645, Routine furosemide 2021- No 40mg 40 mg, Univ ers (LASIX) 05-25 Slow IV ity of injection 19:00: 19:49 Push, [place] 40 mg 00 :32 Q12H, Medical First dose Branch [facility] 05/25/22 at 1400, Until Discontinu ed, Routine docusate Yes 100mg 100 mg, Unive rs (COLACE) 05-25 Oral, BID, ity o f capsule 100 13:00: First dose [place] mg 00 on [facility] 05/25/22 at Branch 0800, Until Discontinu ed, Routine ketorolac 2021- No 15mg 15 mg, Unive rs (TORADOL) 05-25 Slow IV ity of injection 04:30: 04:18 Push, [place] 15 mg 00 :00 ONCE, 1 Medical dose, On [facility] 05/24/22 at 2330, Routine atorvastati Yes 40mg 40 mg, Univ ers n (LIPITOR) 05-25 Oral, QHS, it y of tablet 40 02:00: First dose [place] mg 00 on [facility] 05/24/22 at Branch 2100, Until Discontinu ed, Routine lidocaine 2021- No 2{patch 2 Patch, Univers (LIDODERM) 05-24 } Topical, ity of 5 % (700 23:45: 16:50 Administer [place] mg/patch) 00 :54 over 12 Medical patch 2 Hours, Branch Patch DAILY, First dose on [facility] 05/24/22 at 1845, Until Discontinu ed, Routine HYDROcodone 0 2022- No 1{tbl} 1 tablet, Univers -acetaminop 05-24 Oral, ity of hen (NORCO) 23:43: 05:49 Q4HPRN, [place] 10-325 mg 24 :53 Starting Medica l tablet 1 on [facility] Branch tablet 05/24/22 at 1843, Until 05/27/22 at 0049, Routine, Pain (scale 4-6), Pain (scale 7-10) heparin Yes 5000U 5,000 Univers (porcine) 05-24 Units, ity of injection 13:00: Subcutaneo [place] 5,000 Units 00 us, Q12H, Med ical First dose Branch on [facility] 05/24/22 at 0800, Until Discontinu ed, Routine ondansetron Yes 4mg 4 mg, Slow Univers (ZOFRAN 05-24 IV Push, ity of (PF)) 10:55: [facility] [place] injection 4 26 Starting Medi birdie mg on [facility] Branch 05/24/22 at 0555, Until Discontinu ed, Routine, Nausea and Vomiting (N/V) acetaminoph Yes 650mg 650 mg, Un mel en 05-24 Oral, ity of (TYLENOL) 10:55: Q6RN, [place] tablet 650 21 Starting Medic al mg on [facility] Branch 05/24/22 at 0555, Until Discontinu ed, Routine, Pain (scale 1-3) QUEtiapine 0 2021- No 25mg 25 mg, Univ ers (SEROQUEL) 05-24 Oral, ity of tablet 25 10:54: 23:07 QHSPRN, [place] mg 34 :00 Starting Medical on Sat Branch 05/24/22 at 0554, Until 05/26/22 at 1807, Routine, agitation/ insomnia lidocaine 2021-0 202- No 1{patch 1 Patch, Univers (LIDODERM) 05-24 [...] Branch at 0315, Routine iopamidol 2021- No [id number] 100mL 100 mL, Univers (ISOVUE 05-24 Intravenou [...] ity o f (PF)) 06:46: 23:44 Push, [place] injection 51 :55 Q30MIN Medical 50 mcg [...] ity o f (PF)) 04:04: 06:06 Push, [place] injection 41 :00 Q30MIN Medical 50 mcg PRN, 3 Branch doses, Starting on Thu05/23/22 at 2304, Until Discontinu ed, ADAMA, Pain (scale 7-10) atorvastati Yes 40 mg = 1 M emoria n 40 mg 4-25 tab, PO, l oral tablet 18:19: Bedtime, # [place] 00 30 tab, 0 Refill(s), Pharmacy: [facility], 170.18, cm, 03/05/22 6:53:00 CDT, Height, 77.3, kg, 03/05/22 6:53:00 CDT, Weight atorvastati Yes 40 mg = 1 M emoria n 40 mg 4-25 tab, PO, l oral tablet 18:19: Bedtime, # [place] 00 30 tab, 0 Refill(s), Pharmacy: [facility] 482, 170.18, cm, 03/05/22 6:53:00 CDT, Height, 77.3, kg, 03/05/22 6:53:00 CDT, Weight lidocaine 2022-0 Yes 1 patch, Manjit greg topical 4-25 TOP, l patch (5% 18:18: Daily, # Herm sana film) 00 10 patch, 0 Refill(s), Pharmacy: [facility] 482, 170.18, cm, 03/05/22 6:53:00 CDT, Height, 77.3, kg, 03/05/22 6:53:00 CDT, Weight lidocaine 2021-0 Yes 1 patch, Manjit greg topical 4-25 TOP, l patch (5% 18:18: Daily, # Herm sana film) 00 10 patch, 0 Refill(s), Pharmacy: [place] [id number], 170.18, cm, 03/05/22 6:53:00 CDT, Height, 77.3, kg, 03/05/22 6:53:00 CDT, Weight methocarbam 0 Yes 500 mg = 1 Memoria ol 500 mg 4-25 tab, PO, l oral tablet 18:17: TID, X 7 He rm day, # 21 tab, 0 Refill(s), Pharmacy: [place] [address], 170.18, cm, 03/05/22 6:53:00 CDT, Height, 77.3, kg, 03/05/22 6:53:00 CDT, Weight Metoprolol 0 Yes 25 mg = 1 Me moria Succinate 4-25 tab, PO, l ER 25 mg 18:17: Daily, # [place] nn oral 00 30 tab, 0 tablet, Refill(s), extended Pharmacy: release [facility] 482, 170.18, cm, 03/05/22 6:53:00 CDT, Height, 77.3, kg, 03/05/22 6:53:00 CDT, Weight methocarbam 2021-0 Yes 500 mg = 1 Memoria ol 500 mg 4-25 tab, PO, l oral tablet 18:17: TID, X 7 He rmann day, # 21 tab, 0 Refill(s), Pharmacy: [place] [address]672, 170.18, cm, 03/05/22 6:53:00 CDT, Height, 77.3, kg, 03/05/22 6:53:00 CDT, Weight Metoprolol 2022-0 Yes 25 mg = 1 Me moria Succinate 4-25 tab, PO, l ER 25 mg 18:17: Daily, # [place] nn oral 00 30 tab, 0 tablet, Refill(s), extended Pharmacy: [facility] 482, 170.18, cm, 03/05/22 6:53:00 CDT, Height, 77.3, kg, 03/05/22 6:53:00 CDT, Weight empaglifloz 2021-0 Yes 10 mg = 1 M emoria in 10 mg 4-25 tab, PO, l oral tablet 18:16: Daily, # [place] 00 30 tab, 0 Refill(s), Pharmacy: [place] [address], 170.18, cm, 03/05/22 6:53:00 CDT, Height, 77.3, kg, 03/05/22 6:53:00 CDT, Weight gabapentin 2021-0 Yes 100 mg = 1 M emoria 100 mg oral 4-25 cap, PO, l capsule 18:16: Q8H, # 30 [place] nn 00 cap, 0 Refill(s), Pharmacy: [facility], 170.18, cm, 03/05/22 6:53:00 CDT, Height, 77.3, kg, 03/05/22 6:53:00 CDT, Weight losartan 25 2021-0 Yes 25 mg = 1 M emoria mg oral 4-25 tab, PO, l tablet 18:16: Daily, # [place] 00 30 tab, 0 Refill(s), Pharmacy: [place] [address], 170.18, cm, 03/05/22 6:53:00 CDT, Height, 77.3, kg, 03/05/22 6:53:00 CDT, Weight empaglifloz 2021-0 Yes 10 mg = 1 M emoria in 10 mg 4-25 tab, PO, l oral tablet 18:16: Daily, # [place] 00 30 tab, 0 Refill(s), Pharmacy: [place] [address], 170.18, cm, 03/05/22 6:53:00 CDT, Height, 77.3, kg, 03/05/22 6:53:00 CDT, Weight gabapentin 2021-0 Yes 100 mg = 1 M emoria 100 mg oral 4-25 cap, PO, l capsule 18:16: Q8H, # 30 [place] nn 00 cap, 0 Refill(s), Pharmacy: [facility] 482, 170.18, cm, 03/05/22 6:53:00 CDT, Height, 77.3, kg, 03/05/22 6:53:00 CDT, Weight losartan 25 2021-0 Yes 25 mg = 1 M emoria mg oral 4-25 tab, PO, l tablet 18:16: Daily, # [place] 00 30 tab, 0 Refill(s), Pharmacy: [place] [address], 170.18, cm, 03/05/22 6:53:00 CDT, Height, 77.3, kg, 03/05/22 6:53:00 CDT, Weight donepezil 5 2021-0 Yes 5 mg = 1 Me moria mg oral 4-25 tab, PO, l tablet 18:15: Bedtime, # [place] nn 00 30 tab, 0 Refill(s), Pharmacy: [place] [address], 170.18, cm, 03/05/22 6:53:00 CDT, Height, 77.3, kg, 03/05/22 6:53:00 CDT, Weight aspirin 81 2021-0 Yes 81 mg = 1 Me moria mg tablet, 4-25 tab, PO, l enteric 18:15: Daily, # [place] n coated 00 30 tab, 0 Refill(s), Pharmacy: [place] [address], 170.18, cm, 03/05/22 6:53:00 CDT, Height, 77.3, kg, 03/05/22 6:53:00 CDT, Weight donepezil 5 2021-0 Yes 5 mg = 1 Me moria mg oral 4-25 tab, PO, l tablet 18:15: Bedtime, # [place] nn 00 30 tab, 0 Refill(s), Pharmacy: [place] [address], 170.18, cm, 03/05/22 6:53:00 CDT, Height, 77.3, kg, 03/05/22 6:53:00 CDT, Weight aspirin 81 2021-0 Yes 81 mg = 1 Me moria mg tablet, 4-25 tab, PO, l enteric 18:15: Daily, # [place] coated 00 30 tab, 0 Refill(s), Pharmacy: [facility] 482, 170.18, cm, 03/05/22 6:53:00 CDT, Height, 77.3, kg, 03/05/22 6:53:00 CDT, Weight MiraLax No Notes: Memoria 4-24 Dissolve l 18:08: in 8 oz of [place] 00 water or juice. (Same as: Miralax) senna 8.6 No Notes: Memori a mg oral 4-24 (Same as: l tablet 18:08: Senokot) 00 Metamucil No Notes: Memori a 4-24 (Same as: l 18:08: Metamucil) [place] 00 Mix in 8 oz liquid with meal. MiraLax No Notes: Memoria 4-24 Dissolve l 18:08: in 8 oz of [place] 00 water or juice. (Same as: Miralax) senna 8.6 No Notes: Memori a mg oral 4-24 (Same as: l tablet 18:08: Senokot) [place] 00 Metamucil No Notes: Memori a 4-24 (Same as: l 18:08: Metamucil) [place] 00 Mix in 8 oz liquid with meal. tramadol No Notes: Not Mem oria 4-24 to exceed l 15:13: 400mg/day. [place] (Same As: Ultram) tramadol No Notes: Not Mem oria 4-24 to exceed l 15:13: 400mg/day. [place] 00 (Same As: Ultram) donepezil No Notes: Memori a 4-24 (Same as: l 02:00: Aricept) donepezil No Notes: Memori a 4-24 (Same [...] Dissolve l 13:51: in 8 oz of [place] 00 water or juice. (Same as: Miralax) senna 8.6 No Notes: Memori a mg oral 4-23 (Same as: l tablet 13:51: Senokot) [place] 00 tramadol No Notes: 25 Manjit greg 4-23 mg = 1/2 x l 05:39: 50 mg TAB [place] 00 Not to exceed 400mg/day. (Same As: Ultram) tramadol No Notes: 25 Manjit greg 4-23 mg = 1/2 x l 05:39: 50 mg TAB [place] 00 Not to exceed 400mg/day. (Same As: Ultram) MiraLax No Notes: Memoria 4-22 Dissolve l 23:54: in 8 oz of [place] 00 water or juice. (Same as: Miralax) MiraLax No Notes: Memoria 4-22 Dissolve l 23:54: in 8 oz of [place] water or juice. (Same as: Miralax) gabapentin [...] exceed l #3 17:00: 4gm/day of [place] 00 acetaminop hen. (Same as: Tylenol with Codeine # 3) acetaminoph No Notes: Do M emoria en-codeine 4-22 not exceed l #3 17:00: 4gm/day of [place] acetaminop hen. (Same as: Tylenol with Codeine # 3) Plavix 75 No 75 mg = 1 Mem oria mg oral 4-22 tab, PO, l tablet 14:31: Daily, 0 [place] 00 Refill(s) isosorbide No 120 mg = [...] 4-22 tab, PO, l 14:30: Daily, 0 [place] 00 Refill(s) Januvia 100 No 100 mg = 1 Memoria mg oral 4-22 tab, PO, l tablet 14:30: Daily, 0 [place] 00 Refill(s) Robaxin No Notes: Memoria 4-22 (Same l 14:00: as:Robaxin [place] ) enoxaparin No Notes: Memor ia 4-22 (Same as: l 14:00: Lovenox) [place] 00 Robaxin No Notes: Memoria 4-22 (Same l 14:00: as:Robaxin [place] ) enoxaparin No Notes: Memor ia 4-22 (Same as: l 14:00: Lovenox) remove No Notes: Memoria patch 4-22 Remove l 02:00: patch 12 [place] 00 hours after applicatio n each day. remove No Notes: Memoria patch 4-22 Remove l 02:00: patch 12 [place] 00 hours after applicatio n each day. oxyCODONE No Notes: Memori a immediate - (Same as: l release 01:21: Roxicodone Herm sana ) oxyCODONE No Notes: Memori a immediate - (Same as: l release 01:21: Roxicodone Herm sana 00 ) Tylenol No Notes: Do Memor ia - not exceed l 18:49: 4 gm/day. (Same as: Tylenol) Tylenol No Notes: Do Memor ia - not exceed l 18:49: 4 gm/day. (Same as: Tylenol) Robaxin No Notes: Memoria 4-21 (Same l 15:57: as:Robaxin ) Robaxin No Notes: Memoria 4-21 (Same l 15:57: as:Robaxin ) losartan No Notes: Memoria 4-21 (Same as: l 14:00: Cozaar) empaglifloz No Notes: Manjit greg in - (Same as: l 14:00: Jardiance) losartan No Notes: Memoria 4-21 (Same as: l 14:00: Cozaar) empaglifloz No Notes: Manjit greg in -21 (Same as: l 14:00: Jardiance) lidocaine No Notes: Memori a topical 03-06 Apply only l patch (5% 12:44: once for Herm sana film) 00 up to 12 hours in a 24-hour period (12 hours on and 12 hours off). (Same as: Aspercreme Lidocaine Patch) "Remove old patch before applicatio n of new patch" lidocaine No Notes: Memori a topical 4-21 Apply only l patch (5% 12:44: once [...] No 12.5 gm, Memor ia 50% Syringe -20 25 mL, l (D50W) 16:31: Route: IVP, [...] 4-20 Route: IM, l 16:31: Drug form: [place] 00 PDR/INJ, PRN, Dosing Weight 77.3, kg, [...] temperatur e. Expires in days from ____Date [place] 5/325 No Notes: Manjit greg oral tablet 4-20 (Same as: l 16:20: [place] 00 325/5) Do not exceed 4gm/day of acetaminop hen. [place] 325 No Notes: Manjit greg oral tablet 4-20 (Same as: l 16:20: [place] 325/5) Do not exceed 4gm/day of acetaminop hen. aspirin No Notes: Do Memor ia 4-20 not crush l 14:54: or chew. [place] 00 (Same As: Ecotrin) aspirin No Notes: Do Memor ia 4-20 not crush l 14:54: or chew. [place] 00 (Same As: Ecotrin) Omnipaque No 80 [...] 4 gm/day. (Same as: Tylenol) FENTanyl PF 0 No 25ug 25 mcg, Un mel (SUBLIMAZE [...] Branch 03/01/22 at 0900, 1 mL cyclobenzap 2021-0 Yes [id number] 10mg Take 1 Univers rine 10 mg 4-16 tablet by ity of tablet 00:00: mouth 3 [place] 00 (three) Medical times Branch daily as needed for Muscle Spasms. cyclobenzap 2021-0 Yes [id number] 10mg Take 1 Univers rine 10 mg 4-16 tablet by ity of tablet 00:00: mouth 3 [place] 00 (three) Medical times Branch daily as needed for Muscle Spasms. cyclobenzap 2021-0 202- No [id number] 10mg Take 1 Univers rine 10 mg 4-16 07-15 tablet by ity of tablet 00:00: 00:00 mouth 3 [place] 00 :00 (three) Medical times Branch daily as needed for Muscle Spasms. furosemide 2021-0 Yes 1{tbl} QD Take 1 [...] 17:49: mouth [facility] 02 daily. l traZODone 2-0 Yes 50mg Take 50 mg Me thodi [...] mouth l daily for 30 days. isosorbide 2021-0 2021- No 120mg QD Take 1 Met hodi mononitrate 2-08 18- tablet st (IMDUR) 120 00:00: 05:59 (120 mg Ho spita MG 24 hr 00 :00 total) by l tablet mouth daily for 30 days. clopidogreL 2021-0 2021- No 75mg QD Take 1 Met hodi (PLAVIX) 75 2-10 - tablet (75 s t mg tablet 00:00: 05:59 mg total) Ho spita 00 :00 by mouth l daily for 30 days. isosorbide 2021-0 2021- No 120mg QD Take 1 Met hodi mononitrate 2-10 - tablet st (IMDUR) 120 00:00: 05:59 (120 mg Ho spita MG 24 hr 00 :00 total) by l tablet mouth daily for 30 days. clopidogreL 2021-0 2- No 75mg QD Take 1 Met hodi (PLAVIX) 75 12-26 tablet (75 s t mg tablet 00:00: 05:59 mg total) Ho spita 00 :00 by mouth l daily for 30 days. isosorbide 2021-0 2- No 120mg QD Take 1 Met hodi mononitrate 12-[address] (IMDUR) 120 00:00: 05:59 (120 mg Ho spita MG 24 hr 00 :00 total) by l tablet mouth daily for 30 days. clopidogreL 2021-0 2021- No 75mg QD Take 1 Met hodi (PLAVIX) 75 12-26 tablet (75 s t mg tablet 00:00: 05:59 mg total) Ho spita 00 :00 by mouth l daily for 30 days. isosorbide 2021-2021- No 120mg QD Take 1 Met hodi mononitrate 12-[address] (IMDUR) 120 00:00: 05:59 (120 mg Ho spita MG 24 hr 00 :00 total) by l tablet mouth daily for 30 days. isosorbide 2021-0 2021- No 60mg QD Take 60 mg Methodi mononitrate 212-[address] (IMDUR) 60 17:50: 00:00 daily. Hosp lily MG 24 hr 01 :00 l tablet isosorbide 2021-0 2- No 60mg QD Take 60 mg Methodi mononitrate 212-[address] (IMDUR) 60 17:50: 00:00 daily. Hosp lily MG 24 hr 01 :00 l tablet isosorbide 2-0 2- No 60mg QD Take 60 mg Methodi mononitrate 2- by mouth st (IMDUR) 60 17:50: 00:00 daily. Hosp lily MG 24 hr 01 :00 l tablet isosorbide 2-0 2- No 60mg QD Take 60 mg Methodi mononitrate 2- by mouth st (IMDUR) 60 17:50: 00:00 daily. Hosp lily MG 24 hr 01 :00 l tablet multivitami 2022-0 Yes 1{tbl} QD Take 1 Me thodi [...] pain for up to 30 days. nitroglycer 2022-0 2022- No .4mg Place 1 Me thodi in 12-[address] (NITROSTAT) 00:00: 05:59 (0.4 mg Ho spita 0.4 MG SL 00 :00 total) l tablet under the tongue every 5 (five) minutes as needed for chest pain for up to 30 days. nitroglycer 2022-0 2022- No .4mg Place 1 Me thodi in 12-[address] (NITROSTAT) 00:00: 05:59 (0.4 mg Ho spita 0.4 MG SL 00 :00 total) l tablet under the tongue every 5 (five) minutes as needed for chest pain for up to 30 days. nitroglycer 2022-0 2022- No .4mg Place 1 Me thodi in 12-[address] (NITROSTAT) 00:00: 05:59 (0.4 mg Ho spita 0.4 MG SL 00 :00 total) l tablet under the tongue every 5 (five) minutes as needed for chest pain for up to 30 days. acetaminoph 2022-0 Yes 1{tbl} Q.5D Take 1 Me thodi en-codeine 1-[address] (TYLENOL 00:00: mouth 2 Hospit a WITH 00 (two) l CODEINE #3) times a 300-30 mg day as per tablet needed. acetaminoph 2022-0 Yes 1{tbl} Q.5D Take 1 Me thodi en-codeine 1-[address] (TYLENOL 00:00: mouth 2 Hospit a WITH 00 (two) l CODEINE #3) times a 300-30 mg day as per tablet needed. acetaminoph 2022-0 Yes 1{tbl} Q.5D Take 1 Me thodi [...] per tablet needed. aspirin 81 2020-11- No [id number] 81mg Take 1 Univers mg chewable 2-19 -19 tablet by it y of tablet 00:00: 05:59 mouth [place] 00 :00 daily for Medical 30 days. Branch clopidogreL 2020-11- No [id number] 75mg Take 1 Univers 75 mg 2-19 - tablet by ity of tablet 00:00: 05:59 mouth [place] 00 :00 daily for Medical 30 days. Branch furosemide 2020-11- No [id number] 20mg Take 1 Univers 20 mg 2-12-04 tablet by ity of tablet 00:00: 05:59 mouth [place] 00 :00 daily for Medical 30 days. Branch aspirin 81 2020-11- No [id number] 81mg Take 1 Univers mg chewable 2-12-04 tablet by it y of tablet 00:00: 05:59 mouth [place] 00 :00 daily for Medical 30 days. Branch clopidogreL 2020-2021- No [id number] 75mg Take 1 Univers 75 mg 2-12-04 tablet by ity of tablet 00:00: 05:59 mouth [place] 00 :00 daily for Medical 30 days. Branch furosemide 2020-2021- No [id number] 20mg Take 1 Univers 20 mg 2-04 12- tablet by ity of tablet 00:00: 05:59 mouth [place] 00 :00 daily for Medical 30 days. Branch aspirin 81 2020-11- No [id number] 81mg Take 1 Univers mg chewable 2-12-04 tablet by it y of tablet 00:00: 05:59 mouth [place] 00 :00 daily for Medical 30 days. Branch clopidogreL 2020-11- No [id number] 75mg Take 1 Univers 75 mg 2-19 - tablet by ity of tablet 00:00: 05:59 mouth [place] 00 :00 daily for Medical 30 days. Branch furosemide 2020-112- No [id number] 20mg Take 1 Univers 20 mg 2-19 [...] Until Discontinu ed, Routine QUEtiapine 2020-11 Yes [id number] 25mg Take 1 Univers 25 mg 2-18 tablet by ity of tablet 00:00: mouth at [place] 00 bedtime as Medical needed Branch (agitation /insomnia) . QUEtiapine 2020-11 Yes [id number] 25mg Take 1 Univers 25 mg 2-18 tablet by ity of tablet 00:00: mouth at [place] 00 bedtime as Medical needed Branch (agitation /insomnia) . QUEtiapine 2020-11 Yes [id number] 25mg Take 1 Univers 25 mg 2-18 tablet by ity of tablet 00:00: mouth at [place] 00 bedtime as Medical needed Branch (agitation /insomnia) . QUEtiapine 2020-11 Yes [id number] 25mg Take 1 Univers 25 mg 2-18 tablet by ity of tablet 00:00: mouth at [place] 00 bedtime as Medical needed Branch (agitation /insomnia) . QUEtiapine 2020-11 Yes [id number] 25mg Take 1 Univers 25 mg 2-18 tablet by ity of tablet 00:00: mouth at [place] 00 bedtime as Medical needed Branch (agitation /insomnia) . QUEtiapine 2020-11 Yes [id number] 25mg Take 1 Univers 25 mg 2-18 tablet by ity of tablet 00:00: mouth at [place] [address] bedtime as Medical needed Branch (agitation /insomnia) . QUEtiapine 2020-11 Yes [id number] 25mg Take 1 Univers 25 mg 2-18 [...] 24 hr day. tablet QUEtiapine 2020-11- No [id number] 25mg Take 1 Univers 25 mg 2-18 07-26 tablet by ity of tablet 00:00: 00:00 mouth at [place] 00 :00 bedtime as Medical needed Branch (agitation /insomnia) . isosorbide 2020-11- No [id number] 60mg Take 1 Univers mononitrate 2-18 -18 tablet by it y of 60 mg 24 hr 00:00: 05:59 mouth 2 [place] tablet 00 :00 (two) Medical times Branch daily for 30 days. metoprolol 2020-11- No [id number] 37.5mg Take 1.5 Univers succinate 2-18 -18 tablets by ity of XL 25 mg 24 00:00: 05:59 mouth 2 [place] hr tablet 00 :00 (two) Medical times Branch daily for 30 days. isosorbide 2020-11- No [id number] 60mg Take 1 Univers mononitrate 2-18 -18 tablet by it y of 60 mg 24 hr 00:00: 05:59 mouth 2 [place] tablet 00 :00 (two) Medical times Branch daily for 30 days. metoprolol 2020-11- No [id number] 37.5mg Take 1.5 Univers succinate 2-18 - tablets by ity of XL 25 mg 24 00:00: 05:59 mouth 2 [place] hr tablet 00 :00 (two) Medical times Branch daily for 30 days. isosorbide 2020-11- No [id number] 60mg Take 1 Univers mononitrate 2-18 -18 tablet by it y of 60 mg 24 hr 00:00: 05:59 mouth 2 [place] tablet 00 :00 (two) Medical times Branch daily for 30 days. metoprolol 2020-11- No [id number] 37.5mg Take 1.5 Univers succinate 2-18 -18 [...] [place] mg 00 First dose Medical on [facility] Branch 11/01/21 at 0830, Until Discontinu ed, Routine metoprolol 2020-11- No 25mg 25 mg, Univ ers succinate 2- 12-18 Oral, BID, ity of XL (TOPROL 14:30: 14:17 First dose [place] XL) tablet 00 :36 on [facility] 25 mg 11/01/21 Branch at 0830, Until Discontinu ed, Routine QUEtiapine 2020-11 Yes 25mg 25 mg, Unive rs (SEROQUEL) 2-17 Oral, ity of tablet 25 09:22: QHSPRN, [place] mg 01 Starting Medical on [facility] Branch 11/01/21 at 0322, Until Discontinu ed, Routine, agitation/ insomnia donepeziL 2020-11 Yes 5mg 5 mg, Univers (ARICEPT) 2-17 Oral, QHS, ity of tablet 5 mg 03:00: First dose [place] 00 on [facility] 10/31/21 Branch at 2100, Until Discontinu ed, Routine atorvastati 2020-11 Yes 40mg 40 mg, Univ ers n (LIPITOR) 2-17 Oral, QHS, it y of tablet 40 03:00: First dose [place] mg 00 on [facility] 10/31/21 Branch at 2100, Until Discontinu ed, Routine clopidogreL 2020-11 Yes 75mg 75 mg, Univ ers (PLAVIX) 2-16 Oral, ity of tablet 75 23:30: DAILY, [place] mg 00 First dose Medical on [facility] 10/31/21 at 1730, Until Discontinu ed, Routine sulfur 2020-11- No [id number] 5mL 5 mL, Unive rs hexafluorid 01-01 Intravenou i ty of e microsphr 17:00: 17:00 s, ONCE, 1 [place] (LUMASON) 00 :00 dose, On Medica l injection 5 [facility] Branch mL 10/31/21 at 1100, Routine
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 Restricted medication : MEGGAN [...] No 1mg/kg 80 mg Uni vers (LOVENOX) 2-18 (rounded ity o f injection 09:00: 14:17 from 78 mg [place] 80 mg 00 :35 = 1 mg/kg Medical ?78 kg), Branch Subcutaneo , Q24H, First dose on Madhavi 10/31/21 at 0300, Until Discontinu ed, Routine aspirin 2020-11 No 325mg 325 mg, Unive rs tablet 325 -31 10- Oral, ity of mg 08:45: 08:15 ONCE, 1 [place] 00 :00 dose, On Medical Madhavi Branch [...] No 1{tbl} 1 tablet, Univers en-codeine 6-10 -10 Oral, ity of (TYLENOL 19:00: 17:52 ONCE, 1 [place] #3) 300-30 00 :00 dose, Madhavi Medi birdie mg tablet 1 04/25/21 at [facility] tablet 1400, ADAMA cyclobenzap No 10mg 10 mg, Uni vers rine 6-10 -10 Oral, ONCE ity of (FLEXERIL) 19:00: 17:52 NOW, 1 [place] tablet 10 00 :00 dose, Madhavi Medic al mg 04/25/21 at Branch 1400, ADAMA cyclobenzap 0 Yes [id number] 5mg Take 1 Univers rine 5 mg 6-10 tablet by ity o f tablet 00:00: mouth 3 [place] 00 (three) Medical times Branch daily. cyclobenzap Yes [id number] 5mg Take 1 Univers r[facility] 5 mg 6-10 tablet by ity o f tablet 00:00: mouth 3 [place] 00 (three) Medical times Branch daily. cyclobenzap 0 Yes [id number] 5mg Take 1 [facility] r[facility] 5 mg 6-10 tablet by ity o f tablet 00:00: mouth 3 [place] 00 (three) Medical times Branch daily. acetaminoph 0 Yes [id number] 1{tbl} Take 1 Un mel en-codeine 6-10 tablet by ity of 300-30 mg 00:00: mouth [place] tablet 00 every 6 Medical (six) Branch hours as needed for Pain (scale 4-6). Indication s: acute pain, left sided low back pain cyclobenzap Yes [id number] 5mg Take 1 [facility] r[facility] 5 mg [...] left sided low back pain cyclobenzap Yes [id number] 5mg Take 1 [facility] r[facility] 5 mg 6-10 tablet by ity o f tablet 00:00: mouth 3 [place] 00 (three) Medical times Branch daily. cyclobenzap 2021- No [id number] 5mg Take 1 [facility] rine 5 mg [...] 2020-0 Yes [id number] 1{tbl} Take 1 Un mle en-codeine 8-11 tablet by ity of (TYLENOL-CO [...] No Take by Un mel N ORAL 5-09 05-08 mouth. ity of [...] Discontinu ed, Routine aspirin 81 2020-0 Yes [id number] 81mg Take 1 U nivers mg chewable 5-09 tablet by ity of tablet 00:00: mouth [place] 00 daily with Medical breakfast. Branch furosemide 2020-0 Yes [id number] 20mg Take 1 U nivers 20 mg 5-09 tablet by ity of tablet 00:00: mouth [place] 00 daily. Medical Branch aspirin 81 2020-0 Yes [id number] 81mg Take 1 U nivers mg chewable 5-09 tablet by ity of tablet 00:00: mouth [place] 00 daily with Medical breakfast. Branch furosemide 2020-0 Yes [id number] 20mg Take 1 U nivers 20 mg 5-09 tablet by ity of tablet 00:00: mouth [place] 00 daily. Medical Branch aspirin 81 2020-0 Yes [id number] 81mg Take 1 U nivers mg chewable 5-09 tablet by ity of tablet 00:00: mouth [place] 00 daily with Medical breakfast. Branch furosemide 2020-0 Yes [id number] 20mg Take 1 U nivers 20 mg 5-09 tablet by ity of tablet 00:00: mouth [place] 00 daily. Medical Branch aspirin 81 2020-0 Yes [id number] 81mg Take 1 U nivers mg chewable 5-09 tablet by ity of tablet 00:00: mouth [place] 00 daily with Medical breakfast. Branch furosemide 2020-0 Yes [id number] 20mg Take 1 U nivers 20 mg 5-09 tablet by ity of tablet 00:00: mouth [place] 00 daily. Medical Branch aspirin 81 2020-0 Yes [id number] 81mg Take 1 U nivers mg chewable 5-09 tablet by ity of tablet 00:00: mouth [place] 00 daily with Medical breakfast. Branch furosemide 2020-0 Yes [id number] 20mg Take 1 U nivers 20 mg 5-09 tablet by ity of tablet 00:00: mouth [place] 00 daily. Medical Branch aspirin 81 2020-0 Yes [id number] 81mg Take 1 U nivers mg chewable 5-09 tablet by ity of tablet 00:00: mouth [place] 00 daily with Medical breakfast. Branch furosemide 2020-0 Yes [id number] 20mg Take 1 U nivers 20 mg 5-09 tablet by ity of tablet 00:00: mouth [place] 00 daily. Medical Branch aspirin 81 2020-0 Yes [id number] 81mg Take 1 U nivers mg chewable 5-09 tablet by ity of tablet 00:00: mouth [place] 00 daily with Medical breakfast. Branch furosemide 2020-0 Yes [id number] 20mg Take 1 U nivers 20 mg 5-09 tablet by ity of tablet 00:00: mouth [place] 00 daily. Medical Branch aspirin 81 2020-0 Yes [id number] 81mg Take 1 U nivers mg chewable 5-09 tablet by ity of tablet 00:00: mouth [place] 00 daily with Medical breakfast. Branch furosemide 2020-0 Yes [id number] 20mg Take 1 U nivers 20 mg 5-09 tablet by ity of tablet 00:00: mouth [place] 00 daily. Medical Branch aspirin 81 2020-0 Yes [id number] 81mg Take 1 U nivers mg chewable 5-09 tablet by ity of tablet 00:00: mouth [place] 00 daily with Medical breakfast. Branch furosemide 2020-0 Yes [id number] 20mg Take 1 U nivers 20 mg 5-09 tablet by ity of tablet 00:00: mouth [place] 00 daily. Medical Branch aspirin 81 2020-0 2021- No [id number] 81mg Take 1 Univers mg chewable 5-09 12-18 tablet by it y of tablet 00:00: 00:00 mouth [place] 00 :00 daily with Medical breakfast. Branch furosemide 2019-2020- No [id number] 20mg Take 1 Univers 20 mg 03-24 tablet by ity of tablet 00:00: 00:00 mouth [place] 00 :00 daily. Medical [place] isosorbide 2019-2019- No [id number] 90mg Take 3 Univers mononitrate 03-24-08 tablets by i ty of 30 mg 24 hr 00:00: 00:00 [place] tablet 00 :00 daily. [facility] isosorbide 2019-2019- No [id number] 90mg Take 3 Univers mononitrate 03-24- tablets by i ty of 30 mg 24 hr 00:00: 00:00 [place] tablet 00 :00 daily. [facility] maalox/lido 2019-2019- No 5mL 5 mL, [facility] ers sydni 2 03-23 Oral, ity of %viscous 20:45: 20:56 ONCE, 1 [place] 1: 00 :00 dose, Fri Medical suspension 03/23/20 at [facility] (COMPOUNDED 1545, ) Routine maalox/lido 2019-0 2020- No 5mL 5 mL, [facility] sydni 2 03-23 Oral, ity of %viscous 20:45: 20:56 ONCE, 1 [place] 1: 00 :00 dose, Fri Medical suspension 03/23/20 at [facility] (COMPOUNDED 1545, ) Routine acetaminoph [...] 1 [place] mg 00 :00 dose, [facility] 03/23/20 at Branch 0330, Routine clopidogreL 2020-0 2020- No 300mg 300 mg, U nivers (PLAVIX) 03-23 Oral, ity of tablet 300 08:30: 07:48 ONCE, 1 [place] mg 00 :00 dose, [facility] 03/23/20 at Branch 0330, Routine morpHINE 2020-0 Yes 2mg 2 mg, Slow Uni vers injection 2 - IV Push, ity of mg 07:59: Q4HPRN, [place] [address] Starting Medical Thu03/23/20 Branch at 0259, Until Discontinu ed, Routine, Chest pain morpHINE 2020-0 Yes 2mg 2 mg, Slow Uni vers injection 2 - IV Push, ity of mg 07:59: Q4HPRN, [place] [address] Starting Medical [facility] 03/23/20 Branch at 0259, Until Discontinu ed, [...] [place] 40 mEq 00 :00 dose, [facility] Medical 03/23/20 at Branch 0245, Routine magnesium [...] No Take by Un mel ann, 03-23 05-07 mouth. ity of Vitamin [...] tablet 650 29 Starting Medic al mg [facility] 03/22/20 Branch at 2151, Until Discontinu ed, Routine, Pain (scale 1-3) acetaminoph 2020-0 Yes 650mg 650 mg, Un mel en 03-23 Oral, ity of (TYLENOL) 02:51: Q6HPRN, [place] tablet 650 29 Starting Medic al mg [facility] 03/22/20 Branch at 2151, Until Discontinu ed, Routine, Pain (scale 1-3) nitroglycer 2020-0 Yes .4mg 0.4 mg, Uni vers in 03-23 Sublingual ity of (NITROSTAT) 02:38: , Q5MIN [place] sublingual 00 PRN, 3 Medical tablet 0.4 doses, Branch mg Starting [facility] 03/22/20 at 2138, Until Discontinu ed, ADAMA, Chest pain nitroglycer 2020-0 Yes .4mg 0.4 mg, Uni vers in 03-23 Sublingual ity of (NITROSTAT) 02:38: , Q5MIN [place] sublingual 00 PRN, 3 Medical tablet 0.4 doses, Branch mg Starting [facility] 03/22/20 at 2138, Until Discontinu ed, [...] 1 [place] mg 00 :00 dose, [facility] 03/22/20 at Branch 2145, ADAMA isosorbide 2020-0 Yes [id number] 90mg Take 1.5 Univers mononitrate 5-08 tablets by it y of 60 mg 24 hr 00:00: mouth [place] tablet 00 daily. [facility] isosorbide 2020-0 Yes [id number] 90mg Take 1.5 Univers mononitrate 5-08 tablets by it y of 60 mg 24 hr 00:00: mouth [place] tablet 00 daily. [facility] isosorbide 2020-0 Yes [id number] 90mg Take 1.5 Univers mononitrate 5-08 tablets by it y of 60 mg 24 hr 00:00: mouth [place] tablet 00 daily. [facility] isosorbide 2020-0 Yes [id number] 90mg Take 1.5 Univers mononitrate 5-08 tablets by it y of 60 mg 24 hr 00:00: mouth [place] tablet 00 daily. [facility] isosorbide 2020-0 Yes [id number] 90mg Take 1.5 Univers mononitrate 5-08 tablets by it y of 60 mg 24 hr 00:00: mouth [place] tablet 00 daily. [facility] isosorbide 2020-0 Yes [id number] 90mg Take 1.5 Univers mononitrate 5-08 tablets by it y of 60 mg 24 hr 00:00: mouth [place] tablet 00 daily. [facility] isosorbide 2020-0 Yes [id number] 90mg Take 1.5 Univers mononitrate 5-08 tablets by it y of 60 mg 24 hr 00:00: mouth [place] tablet 00 daily. [facility] isosorbide 2020-0 Yes [id number] 90mg Take 1.5 Univers mononitrate 5-08 tablets by it y of 60 mg 24 hr 00:00: mouth [place] tablet 00 daily. [facility] isosorbide 2020-0 Yes [id number] 90mg Take 1.5 Univers mononitrate 5-08 tablets by it y of 60 mg 24 hr 00:00: mouth [place] tablet 00 daily. [facility] isosorbide 2020-0 2020- No [id number] 90mg Take 1.5 Univers mononitrate 5-08 12-18 tablets by i ty of 60 mg 24 hr 00:00: 00:00 mouth [place] tablet 00 :00 daily. [facility] acetaminoph 2019-0 2020- No [id number] 975mg Take 3 Univers en 325 mg 5-08 05-19 tablets by ity of tablet 00:00: 04:59 mouth [place] 00 :00 every 8 Medical (eight) Branch hours for 10 days. acetaminoph 2020-0 2020- No [id number] 975mg Take 3 Univers en 325 mg 5-08 05-19 tablets by ity of tablet 00:00: 04:59 mouth [place] 00 :00 every 8 Medical (eight) Branch hours for 10 days. acetaminoph 2020-0 2020- No [id number] 975mg Take 3 Univers en 325 mg 5-08 05-19 tablets by ity of tablet 00:00: 04:59 mouth [place] 00 :00 every 8 Medical (eight) Branch hours for 10 days. acetaminoph 2020-0 2020- No [id number] 975mg Take 3 Univers en 325 mg 5-08 05-19 tablets by ity of tablet 00:00: 04:59 mouth [place] 00 :00 every 8 Medical (eight) Branch hours for 10 days. acetaminoph 2019- 2020- No [id number] 975mg Take 3 Univers en 325 mg 5-08 05-19 tablets by ity of tablet 00:00: 04:59 mouth [place] 00 :00 every 8 Medical (eight) Branch hours for 10 days. lidocaine 5 2019- No [id number] 1{patch Apply 1 Univers % (700 5-08 05-09 } Patch to ity of mg/patch) 00:00: 04:59 area(s) [place] patch 00 :00 once now Medical for 1 Branch dose. lidocaine 5 2019- No [id number] 1{patch Apply 1 Univers % (700 5-08 05-09 } Patch to ity of mg/patch) 00:00: 04:59 area(s) [place] patch 00 :00 once now Medical for 1 Branch dose. lidocaine 5 2020- No [id number] 1{patch Apply 1 Univers % (700 5-08 05-08 } Patch to ity of mg/patch) 00:00: 00:00 area(s[place] patch 00 :00 once now Medical for 1 Branch dose. lidocaine 5 2019- No [id number] 1{patch Apply 1 [facility] % (700 5-08 [...] [place] 00 First dose Medical on [facility]08/20 [facility] 0900[facility] sp[facility]-0 2020- No [id number] 12.5mg Take 0.5 Univers one 25 mg 4-23 05-24 tablets by ity of tablet 00:00: 04:59 mouth [place] 00 :00 daily for Medical 30 days. Branch spironolact 2020-0 2020- No [id number] 12.5mg Take 0.5 Univers one 25 mg 4-23 05-24 tablets by ity of tablet 00:00: 04:59 mouth [place] 00 :00 daily for Medical 30 days. Branch spironolact 2020-0 2020- No [id number] 12.5mg Take 0.5 Univers one 25 mg 4-23 05-24 tablets by ity of tablet 00:00: 04:59 mouth [place] 00 :00 daily for Medical 30 days. Branch spironolact 2020-0 2020- No [id number] 12.5mg Take 0.5 Univers one 25 mg 4-23 05-07 tablets by ity of tablet 00:00: 00:00 mouth [place] 00 :00 daily for Medical 30 days. Branch spironolact 2020-0 2020- No [id number] 12.5mg Take 0.5 Univers one 25 mg [...] capsule Branch MULTIVITAMI 2019-0 Yes Take by Uni vers [...] mouth ity of tablet 20:15: 00:00 daily. [place] 29 :00 Medical Branch atorvastati 2019-0 2020- No 40mg Take 40 mg Univers n 40 mg 03-07- by mouth ity of tablet 20:15: 00:00 at [place] 29 :00 bedtime. Medical Branch temazepam 2020-0 Yes 15mg 15 mg, Univer s (RESTORIL) 4-22 Oral, ity of capsule 15 01:55: QHSPRN, [place] mg 38 Starting Medical [facility] 03/06/20 at 5, Until Discontinu ed, Routine, Insomnia Insulin 2020-0 Yes [id number] 10U inject 10 Univers Glargine 4-22 Units ity of 100 unit/mL 00:00: under the [place] (3 mL) 00 skin at Medical injection bedtime. Branch temazepam 2020-0 Yes [id number] 15mg Take 1 Un mel 15 mg 4-22 capsule by ity of capsule 00:00: mouth at [place] 00 bedtime as Medical needed for Branch Insomnia. furosemide 2020-0 Yes [id number] 40mg Take 1 Univers 40 mg 4-22 tablet by ity of tablet 00:00: mouth [place] 00 every Medical morning Branch and evening. Magnesium 2020-0 Yes [id number] 400mg Take 400 Univers Oxide 420 4-22 mg by ity of mg Tab 00:00: mouth [place] 00 daily. Medical Branch potassium 2020-0 Yes [id number] 20meq Take 20 Univers chloride 20 4-22 mEq by ity of mEq packet 00:00: mouth [place] 00 daily. Medical Take with Branch lasix in the morning isosorbide 2020-0 Yes [id number] 15mg Take 0.5 Univers mononitrate 4-22 tablets by it y of 30 mg 24 hr 00:00: mouth [place] tablet 00 daily. Medical Hold if Branch systolic blood pressure less than 120 Insulin 2020-0 Yes [id number] 10U inject 10 [facility] Glargine 4-22 Units ity of 100 unit/mL 00:00: under the [place] (3 mL) 00 skin at Medical injection bedtime. Branch temazepam 2020-0 Yes [id number] 15mg Take 1 Un mel 15 mg 4-22 capsule by ity of capsule 00:00: mouth at [place] 00 bedtime as Medical needed for Branch Insomnia. furosemide 2020-0 Yes [id number] 40mg Take 1 Univers 40 mg 4-22 tablet by ity of tablet 00:00: mouth [place] 00 every Medical morning Branch and evening. Magnesium 2020-0 Yes [id number] 400mg Take 400 Univers Oxide 420 4-22 mg by ity of mg Tab 00:00: mouth [place] 00 daily. Medical Branch potassium 2020-0 Yes [id number] 20meq Take 20 Univers chloride 20 4-22 mEq by ity of mEq packet 00:00: mouth [place] 00 daily. Medical Take with Branch lasix in the morning isosorbide 2020-0 Yes [id number] 15mg Take 0.5 [facility] mononitrate 4-22 tablets by it y of 30 mg 24 hr 00:00: mouth [place] tablet 00 daily. Medical Hold if Branch systolic blood pressure less than 120 Insulin 2020-0 Yes [id number] 10U inject 10 Univers Glargine 4-22 Units ity of 100 unit/mL 00:00: under the [place] (3 mL) 00 skin at Medical injection bedtime. Branch temazepam 2020-0 Yes [id number] 15mg Take 1 Un mel 15 mg 4-22 capsule by ity of capsule 00:00: mouth at [place] 00 bedtime as Medical needed for Branch Insomnia. furosemide 2020-0 Yes [id number] 40mg Take 1 Univers 40 mg 4-22 tablet by ity of tablet 00:00: mouth [place] 00 every Medical morning Branch and evening. Magnesium 2020-0 Yes [id number] 400mg Take 400 Univers Oxide 420 4-22 mg by ity of mg Tab 00:00: mouth [place] 00 daily. Medical Branch potassium 2020-0 Yes [id number] 20meq Take 20 Univers chloride 20 4-22 mEq by ity of mEq packet 00:00: mouth [place] 00 daily. Medical Take with Branch lasix in the morning isosorbide 2020-0 Yes [id number] 15mg Take 0.5 Univers mononitrate 4-22 tablets by it y of 30 mg 24 hr 00:00: mouth [place] tablet 00 daily. Medical Hold if Branch systolic blood pressure less than 120 Insulin 2020-0 Yes [id number] 10U inject 10 Univers Glargine 4-22 Units ity of 100 unit/mL 00:00: under the [place] (3 mL) 00 skin at Medical injection bedtime. Branch Magnesium 2020-0 Yes [id number] 400mg Take 400 Univers Oxide 420 4-22 mg by ity of mg Tab 00:00: mouth [place] 00 daily. Medical Branch vitamin 2020-0 2020- No [id number] 1000ug Take 1 Univers B-12 1,000 4-22 07-22 tablet by ity of mcg tablet 00:00: 04:59 mouth [place] 00 :00 daily for Medical 90 days. Branch vitamin 2019- 2020- No [id number] 1000ug Take 1 Univers B-12 1,000 4-22 07-22 tablet by ity of mcg tablet 00:00: 04:59 mouth [place] 00 :00 daily for Medical 90 days. [place] vitamin 2019- 2020- No [id number] 1000ug Take 1 Univers B-12 1,000 4-22 07-22 tablet by ity of mcg tablet 00:00: 04:59 mouth [place] 00 :00 daily for Medical 90 days. Branch vitamin 2019- 2020- No [id number] 1000ug Take 1 Univers B-12 1,000 4-22 07-22 tablet by ity of mcg tablet 00:00: 04:59 mouth [place] 00 :00 daily for Medical 90 days. [place] glipiZIDE 5 2020- No [id number] 2.5mg Take 0.5 Univers mg tablet 03-07-23 tablets by ity of 00:00: 04:59 mouth 2 [place] 00 :00 (two) Medical times Branch daily before breakfast and dinner for 30 days. metoprolol 2019- 2020- No [id number] 25mg Take 1 Univers succinate 4-22 05-23 tablet by ity of XL 25 mg 24 00:00: 04:59 mouth 2 [place] hr tablet 00 :00 (two) Medical times Branch daily for 30 days. OLANZapine 2019- 2020- No [id number] 2.5mg Take 1 Univers 2.5 mg - 05-23 tablet by ity of tablet 00:00: 04:59 mouth at [place] 00 :00 bedtime Medical for 30 Branch days. ranolazine 2019- 2020- No [id number] 1000mg Take 2 Univers 500 mg 12 -22 05-23 tablets by ity of hr tablet 00:00: 04:59 mouth [place] 00 :00 every 12 Medical (twelve) Branch hours for 30 days. aspirin 81 2019-0 2020- No [id number] 81mg Take 1 Univers mg chewable 4-22 05-23 tablet by it y of tablet 00:00: 04:59 mouth [place] 00 :00 daily with Medical breakfast Branch for 30 days. atorvastati 2019- 2020- No [id number] 40mg Take 1 Univers n 40 mg 4-22 05-23 tablet by ity of tablet 00:00: 04:59 mouth at [place] 00 :00 bedtime Medical for 30 Branch days. glipiZIDE 5 2019- 2020- No [id number] 2.5mg Take 0.5 Univers mg tablet 03-07 05-23 tablets by ity of 00:00: 04:59 mouth 2 [place] 00 :00 (two) Medical times Branch daily before breakfast and dinner for 30 days. metoprolol 2019- 2020- No [id number] 25mg Take 1 Univers succinate 4-22 05-23 tablet by ity of XL 25 mg 24 00:00: 04:59 mouth 2 [place] hr tablet 00 :00 (two) Medical times Branch daily for 30 days. OLANZapine 2019-0 2020- No [id number] 2.5mg Take 1 Univers 2.5 mg 4- 05-23 tablet by ity of tablet 00:00: 04:59 mouth at [place] 00 :00 bedtime Medical for 30 Branch days. ranolazine 2019- 2020- No [id number] 1000mg Take 2 Univers 500 mg 12 - 05-23 tablets by ity of hr tablet 00:00: 04:59 mouth [place] 00 :00 every 12 Medical (twelve) Branch hours for 30 days. aspirin 81 2019- 2020- No [id number] 81mg Take 1 Univers mg chewable - 05-23 tablet by it y of tablet 00:00: 04:59 mouth [place] 00 :00 daily with Medical breakfast Branch for 30 days. atorvastati 2019- 2020- No [id number] 40mg Take 1 Univers n 40 mg - 05-23 tablet by ity of tablet 00:00: 04:59 mouth at [place] 00 :00 bedtime Medical for 30 Branch days. glipiZIDE 5 2019- 2020- No [id number] 2.5mg Take 0.5 Univers mg tablet - 05-23 tablets by ity of 00:00: 04:59 mouth 2 [place] 00 :00 (two) Medical times Branch daily before breakfast and dinner for 30 days. metoprolol 2019- 2020- No [id number] 25mg Take 1 Univers succinate 4-22 05-23 tablet by ity of XL 25 mg 24 00:00: 04:59 mouth 2 [place] hr tablet 00 :00 (two) Medical times Branch daily for 30 days. OLANZapine 2020-0 2020- No [id number] 2.5mg Take 1 Univers 2.5 mg 4-22 05-23 tablet by ity of tablet 00:00: 04:59 mouth at [place] 00 :00 bedtime Medical for 30 Branch days. ranolazine 2019- 2020- No [id number] 1000mg Take 2 Univers 500 mg 12 4-22 05-23 tablets by ity of hr tablet 00:00: 04:59 mouth [place] 00 :00 every 12 Medical (twelve) Branch hours for 30 days. aspirin 81 2019- 2020- No [id number] 81mg Take 1 Univers mg chewable 4-22 05-23 tablet by it y of tablet 00:00: 04:59 mouth [place] 00 :00 daily with Medical breakfast Branch for 30 days. atorvastati 2019- 2020- No [id number] 40mg Take 1 Univers n 40 mg 4-22 05-23 tablet by ity of tablet 00:00: 04:59 mouth at [place] 00 :00 bedtime Medical for 30 Branch days. glipiZIDE 5 2019- 2020- No [id number] 2.5mg Take 0.5 Univers mg tablet -06 04-23 tablets by ity of 00:00: 04:59 mouth 2 [place] 00 :00 (two) Medical times Branch daily before breakfast and dinner for 30 days. metoprolol 2019- 2020- No [id number] 25mg Take 1 Univers succinate -22 05-23 tablet by ity of XL 25 mg 24 00:00: 04:59 mouth 2 [place] hr tablet 00 :00 (two) Medical times Branch daily for 30 days. ranolazine 2019- 2020- No [id number] 1000mg Take 2 Univers 500 mg 12 4-22 05-23 tablets by ity of hr tablet 00:00: 04:59 mouth [place] 00 :00 every 12 Medical (twelve) Branch hours for 30 days. atorvastati 2019-0 2020- No [id number] 40mg Take 1 Univers n 40 mg 4-22 05-23 tablet by ity of tablet 00:00: 04:59 mouth at [place] 00 :00 bedtime Medical for 30 Branch days. furosemide 2019- 2020- No [id number] 40mg Take 1 Univers 40 mg 4-22 05-08 tablet by ity of tablet 00:00: 00:00 mouth [place] 00 :00 every Medical morning Branch and evening. aspirin 81 2019- 2020- No [id number] 81mg Take 1 Univers mg chewable 4-22 05-08 tablet by it y of tablet 00:00: 00:00 mouth [place] 00 :00 daily with Medical breakfast Branch for 30 days. isosorbide 2020- No [id number] 15mg Take 0.5 Univers mononitrate 03-07-08 tablets by i ty of 30 mg 24 hr 00:00: 00:00 mouth [place] tablet 00 :00 daily. Medical Hold if Branch systolic blood pressure less than 120 Insulin 2020- No [id number] 10U inject 10 Univers Glargine 03-07-08 Units ity of 100 unit/mL 00:00: 00:00 under the [place] (3 mL) 00 :00 skin at Medical injection bedtime. Branch glipiZIDE 5 2019- No [id number] 2.5mg Take 0.5 Univers mg tablet 03-07-08 tablets by ity of 00:00: 00:00 mouth 2 [place] 00 :00 (two) Medical times Branch daily before breakfast and dinner for 30 days. metoprolol 2019- No [id number] 25mg Take 1 Univers succinate 03-07-08 tablet by ity of XL 25 mg 24 00:00: 00:00 mouth 2 [place] hr tablet 00 :00 (two) Medical times Branch daily for 30 days. ranolazine 2019- No [id number] 1000mg Take 2 Univers 500 mg 12 03-07-08 tablets by ity of hr tablet 00:00: 00:00 mouth [place] 00 :00 every 12 Medical (twelve) Branch hours for 30 days. furosemide 2019- 2020- No [id number] 40mg Take 1 Univers 40 mg 03-07-08 tablet by ity of tablet 00:00: 00:00 mouth [place] 00 :00 every Medical morning Branch and evening. aspirin 81 2019- 2020- No [id number] 81mg Take 1 Univers mg chewable 03-07 05-08 tablet by it y of tablet 00:00: 00:00 mouth [place] 00 :00 daily with Medical breakfast Branch for 30 days. atorvastati 2019- 2020- No [id number] 40mg Take 1 Univers n 40 mg 03-07 05-08 tablet by ity of tablet 00:00: 00:00 mouth at [place] 00 :00 bedtime Medical for 30 Branch days. Magnesium 2019- No [id number] 400mg Take 400 Univers Oxide 420 -22 05-08 mg by ity of mg Tab 00:00: 00:00 mouth [place] 00 :00 daily. Medical Branch vitamin 2019-2019- No [id number] 1000ug Take 1 Univers B-12 1,000 4-22 05-08 tablet by ity of mcg tablet 00:00: 00:00 mouth [place] 00 :00 daily for Medical 90 days. Branch isosorbide 2019- No [id number] 15mg Take 0.5 Univers mononitrate -22 05-08 tablets by i ty of 30 mg 24 hr 00:00: 00:00 mouth [place] tablet 00 :00 daily. Medical Hold if Branch systolic blood pressure less than 120 OLANZapine No [id number] 2.5mg Take 1 Univers 2.5 mg 4-22 05-07 tablet by ity of tablet 00:00: 00:00 mouth at [place] 00 :00 bedtime Medical for 30 Branch days. temazepam No [id number] 15mg Take 1 U nivers 15 mg 4-22 05-07 capsule by ity of capsule 00:00: 00:00 mouth at [place] 00 :00 bedtime as Medical needed for Branch Insomnia. potassium 2019- No [id number] 20meq Take 20 Univers chloride 20 4-22 05-07 mEq by ity o f mEq packet 00:00: 00:00 mouth [place] 00 :00 daily. Medical Take with Branch lasix in the morning OLANZapine 2019- No [id number] 2.5mg Take 1 Univers 2.5 mg 4-22 05-07 tablet by ity of tablet 00:00: 00:00 mouth at [place] 00 :00 bedtime Medical for 30 Branch days. temazepam 2019- No [id number] 15mg Take 1 U nivers 15 mg 4-22 05-07 capsule by ity of capsule 00:00: 00:00 mouth at [place] 00 :00 bedtime as Medical needed for Branch Insomnia. potassium No [id number] 20meq Take 20 Univers chloride 20 4-22 05-07 mEq by ity o f mEq packet 00:00: 00:00 mouth [place] 00 :00 daily. Medical Take with Branch lasix in the morning isosorbide No 60mg 60 mg, Univ ers mononitrate [...] dose Medical on [facility] Branch 03/05/20 at 0900, Until Discontinu ed, Routine
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 Restricted medication : CRISTONE lisinopril 2020-0 2020- No 5mg 5 mg, Unive rs (PRINIVIL,Z -05 03- Oral, ity of ESTRIL) 14:00: 13:44 DAILY, [...] dose Medical on [facility] Branch 03/05/20 at 0800, Until Discontinu ed, [...] dose [place] ular + Fsbg 00 on [facility] Medica l Testing 4/20/20 at Branch 0730, Until Discontinu ed, Routine glipiZIDE 2020-0 2020- No 5mg 5 mg, Univer s (GLUCOTROL) 4-20 04-22 Oral, ity of tablet 5 mg 12:30: 19:41 BIDAC, [place] 00 :44 First dose Medical on [facility] 03/05/20 at 0730, Until Discontinu ed, Routine glucagon 2020-0 Yes 1mg 1 mg, Univers (GLUCAGEN 4-20 Intramuscu ity of DIAGNOSTIC 03:02: [place], PRN, [place] KIT) 42 Starting Medical injection 1 [facility] mg 03/04/20 at 2202, Until Discontinu ed, ADAMA, Blood Glucose < or = 70 mg/dL and patient is unable to swallow or has mental changes. dextrose 50 2020-0 Yes 25mL 25 mL, Univ ers % in water 4-20 Slow IV ity of (D50W) 03:02: Push, PRN, [place] injection 42 Starting Medica l 25 mL [facility] 03/04/20 at 2202, Until Discontinu ed, ADAMA, Blood Glucose < or = 70 mg/dL and patient is unable to swallow or has mental status changes. furosemide 2020-0 Yes 40mg 40 mg, Unive rs (LASIX) 4-20 Oral, ity of tablet 40 03:00: QAM+PM, [place] mg 00 First dose Medical on [facility] 03/04/20 at 2200, Until Discontinu ed, Routine cyanocobala 2020-0 Yes 1000ug 1,000 mcg, Univers min 4-20 Subcutaneo ity of (VITAMIN 03:00: [place], Q24H, [place] B12) 00 First dose Medical injection on [facility] 1,000 mcg 03/04/20 at 2200, Until Discontinu ed, Routine heparin 2020-0 Yes 5000U 5,000 Univers (porcine) 4-20 Units, ity of injection 03:00: Subcutaneo [place] 5,000 Units 00 us, Q8H, Medi birdie First dose Branch on [place] 03/04/20 at 2200, Until Discontinu ed, Routine ondansetron 2020-0 Yes 4mg 4 mg, Slow Univers (ZOFRAN 4-20 IV Push, ity of (PF)) 02:34: Q6HPRN, [place] injection 4 40 Starting Medi birdie mg [facility] 03/04/20 at 2133, Until Discontinu ed, Routine, Nausea and Vomiting (N/V) traMADol 2019- No 50mg 50 mg, Univer s (ULTRAM) -20 04-22 Oral, ity of tablet 50 02:34: 02:33 Q8HPRN, [place] mg 23 :23 Starting [facility] 03/04/20 at 2133, Until 03/06/20 at 2132, Routine, Pain (scale 4-6) acetaminoph 2019-0 Yes 650mg 650 mg, Un mel en -20 Oral, ity of (TYLENOL) 02:34: Q6HPRN, [place] tablet 650 20 Starting Medic al mg [facility] 03/04/20 at 2133, Until Discontinu ed, Routine, Pain (scale 1-3) lisinopril 2019-0 Yes [id number] 5mg Take 1 Univers 5 mg tablet 4-18 tablet by ity of 00:00: mouth [place] 00 daily. Medical Branch isosorbide 2019-0 Yes [id number] 30mg Take 1 Univers mononitrate 4-18 tablet by ity of 30 mg 24 hr 00:00: mouth [place] tablet 00 daily. Medical Branch lisinopril 2019-0 Yes [id number] 5mg Take 1 Univers 5 mg tablet 4-18 tablet by ity of 00:00: mouth [place] 00 daily. Medical Branch isosorbide 2019-0 Yes [id number] 30mg Take 1 Univers mononitrate 4-18 tablet by ity of 30 mg 24 hr 00:00: mouth [place] tablet 00 daily. Medical Branch lisinopril 2019-0 2020- No [id number] 5mg Take 1 Univers 5 mg tablet 4-18 04-22 tablet by it y of 00:00: 00:00 mouth [place] 00 :00 daily. Medical Branch isosorbide 2019-0 2020- No [id number] 30mg Take 1 Univers mononitrate 4-18 04-22 [...] N ORAL 4-17 mouth. ity of 17:34: [place] [address] Medical Branch thiamine 2020-0 Yes 100mg Take 100 Univ ers (VITAMIN 4-17 mg by ity of B-1) 100 mg 17:34: mouth [place] tablet 27 daily. Medical Branch aspirin 81 2020-0 Yes 81mg Take 81 mg U nivers mg chewable 4-17 by mouth ity of tablet 17:34: daily. [place] [address] Medical Branch atorvastati 2020-0 Yes 40mg Take 40 mg Univers n 40 mg 4-17 by mouth ity of tablet 17:34: at [place] [address] bedtime. Medical Branch NaCl 0.9% 2020-0 Yes [...] ity of complex and 17:34: [place] C (B 27 Medical COMPLEX-VIT Branch RAZA C-FOLIC ACID ORAL) Cholecalcif 2020-0 Yes Take by Uni vers ann, 4-17 mouth. ity of Vitamin D3, 17:34: [place] 2,000 unit 27 Medical capsule Branch metoprolol 2020-0 Yes 12.5mg Take 12.5 Univers tartrate 4-17 mg by ity of 12.5 mg 17:34: mouth 2 27 (two) Medical times Branch daily. MULTIVITAMI 2020-0 Yes Take by Uni vers N ORAL 4-17 mouth. ity of 17:34: [place] Medical Branch thiamine 2020-0 Yes 100mg Take 100 Univ ers (VITAMIN 4-17 mg by ity of B-1) 100 mg 17:34: mouth [place] tablet 27 daily. Medical Branch aspirin 81 2020-0 Yes 81mg Take 81 mg U nivers mg chewable 4-17 by mouth ity of tablet 17:34: daily. [place] [address] Medical Branch atorvastati 2020-0 Yes 40mg Take 40 mg Univers n 40 mg 4-17 by mouth ity of tablet 17:34: at [place] [address] bedtime. Medical Branch NaCl 0.9% 2020-0 Yes [...] tablet 5 mg 02:00: First dose [place] on [facility] Medical 03/01/20 at Branch 2100, Until Discontinu ed, Routine furosemide 2020-0 Yes [id number] 40mg Take 1 Univers 40 mg 4-17 tablet by ity of tablet 00:00: mouth [place] 00 every Medical morning Branch and evening. potassium 2020-0 Yes [id number] 20meq Take 20 Univers chloride 20 4-17 mEq by ity of mEq packet 00:00: mouth [place] 00 daily. Medical Branch vitamin 2020-0 Yes [id number] 1000ug Take 1 U nivers B-12 1,000 4-17 tablet by ity of mcg tablet 00:00: mouth [place] 00 daily. Medical Branch furosemide 2020-0 Yes [id number] 40mg Take 1 Univers 40 mg 4-17 tablet by ity of tablet 00:00: mouth [place] 00 every Medical morning Branch and evening. potassium 2020-0 Yes [id number] 20meq Take 20 Univers chloride 20 4-17 mEq by ity of mEq packet 00:00: mouth [place] 00 daily. Medical Branch vitamin 2020-0 Yes [id number] 1000ug Take 1 U nivers B-12 1,000 4-17 tablet by ity of mcg tablet 00:00: mouth [place] 00 daily. Medical Branch furosemide 2019-0 2020- No [id number] 40mg Take 1 Univers 40 mg 4-17 04-22 tablet by ity of tablet 00:00: 00:00 mouth [place] 00 :00 every Medical morning Branch and evening. potassium 2019-0 2020- No [id number] 20meq Take 20 Univers chloride 20 4-17 04-22 mEq by ity o f mEq packet 00:00: 00:00 mouth [place] 00 :00 daily. Medical Branch vitamin 2019-0 2020- No [id number] 1000ug Take 1 Univers B-12 1,000 4-17 04-22 tablet by ity of mcg tablet 00:00: 00:00 mouth [place] 00 :00 daily. Medical Branch cyanocobala 2019-0 Yes 1000ug 1,000 mcg, Univers min 4-16 Subcutaneo ity of (VITAMIN 20:45: us, Q24H, [place] B12) 00 First dose Medical injection on [facility] Branch 1,000 mcg 03/01/20 at 1545, Until Discontinu ed, Routine isosorbide 2019-0 Yes 30mg 30 mg, Unive rs mononitrate 4-16 Oral, ity of (IMDUR) 24 14:00: DAILY, [place] hr tablet 00 First dose Medi birdie 30 mg on [facility] Branch 03/01/20 at 0900, Until Discontinu ed, Routine memantine 2019-0 Yes 10mg 10 mg, Univer s (NAMENDA) 4-16 Oral, ity of tablet 10 14:00: DAILY, [place] mg 00 First dose Medical on [facility] Branch 03/01/20 at 0900, Until Discontinu ed, Routine
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 Restricted medication : MEGANE lisinopril 2020-0 Yes 5mg 5 mg, Univer s (PRINIVIL,Z 4-16 Oral, ity of ESTRIL) 14:00: DAILY, [place] tablet 5 mg 00 First dose Me dical on [facility] Branch 03/01/20 at 0900, Until Discontinu ed, Routine enoxaparin 2020-0 Yes 30mg 30 mg, Unive rs (LOVENOX) - Subcutaneo ity of injection 14:00: [place], DAILY, [place] 30 mg 00 First dose Medical on [facility] Branch 03/01/20 at 0900, Until Discontinu ed, Routine KCL 2020-0 2020- No 20meq 20 mEq, Univers (KLOR-CON 03-01 Oral, ity of M20) tablet 14:00: 13:26 DAILY, [place] as 20 mEq 00 :35 First dose Medical on [facility] Branch 03/01/20 at 0900, Until Discontinu ed, Routine KCL 2020-0 Yes 40meq 40 mEq, Univers (KLOR-CON 03-01 Oral, BID, ity of M20) tablet 13:30: First dose [place] 40 mEq 00 on [facility] Medical 03/01/20 at Branch 0830, Until Discontinu ed, Routine magnesium 2020-0 2020- No 2g 2 g, IV Univ ers sulfate in 03-01 Infusion, ity of water 2 03:30: 03:30 ONCE, 1 [place] gram/50 mL 00 :00 dose, Thu [facility] birdie (4 %) 2 g 02/29/20 at [facility] piggyback 2230 metoprolol 2020-0 2020- No 5mg 5 mg, Slow Univers (LOPRESSOR) 03-01 IV Push, ity of injection 5 03:30: 03:37 ONCE, 1 [place] mg 00 :00 dose, [facility] 02/29/20 at Branch 2230, ADAMA glipiZIDE 2020-0 Yes 5mg 5 mg, Univers (GLUCOTROL) 03-01 Oral, ity of tablet 5 mg 02:45: BIDAC, [place] 00 First dose Medical on [facility] Branch 02/29/20 at 2145, Until Discontinu ed, Routine insulin 2020-0 Yes 10U 10 Units, Unive rs glargine 16 Subcutaneo ity o f (LANTUS 02:45: us, QHS, [place] U-100) 00 First dose Medical injection on [facility] Branch 10 Units 02/29/20 at [...] Branch dose, 02/29/20 at 1830, ADAMA acetaminoph 2019-2019- No 650mg 650 mg, U nivers en 02-28 Oral, ity of (TYLENOL) 23:00: 22:36 ONCE, 1 [place] tablet 650 00 :00 dose, Thu Medi birdie mg 02/29/20 at Branch 1800, ADAMA donepezil 5 2019-0 Yes 5mg Take 5 mg U nivers mg tablet 02-14 by mouth ity of 00:00: daily. [address] donepezil 5 2019-0 2020- No 5mg Take 5 mg Univers mg tablet 02-1408 by mouth ity o f 00:00: 00:00 daily. [place] 00 :00 [facility] nitroglycer 2019- 2020- No DISSOLVE U [...] 00:00: 00:00 mouth [place] 00 :00 daily. [facility] Branch nitroglycer 2019- 2020- No DISSOLVE U nivers in 0.4 mg 02-1407 ONE TABLET ity of sublingual 00:00: 00:00 UNDER THE [place] tablet 00 :00 TONGUE Medical EVERY 5 Branch MINUTES NEEDED FOR CHEST PAIN. DO NOT EXCEED A TOTAL OF 3 DOSES IN 15 MINUTES KCL 10 mEq 2020-0 2020- No 10meq Take 10 Un mel tablet - 05-07 mEq by ity of 00:00: 00:00 [...] N ORAL 3-03 mouth. ity of 23:00: [place] [address] Medical Branch thiamine 2020-0 Yes 100mg Take 100 Univ ers (VITAMIN 3-03 mg by ity of B-1) 100 mg 23:00: mouth [place] tablet 52 daily. Medical Branch aspirin 81 2020-0 Yes 81mg Take 81 mg U nivers mg chewable 3-03 by mouth ity of tablet 23:00: daily. [place] [address] Medical Branch atorvastati 2020-0 Yes 40mg Take 40 mg Univers n 40 mg 3-03 by mouth ity of tablet 23:00: at [place] [address] bedtime. Medical Branch NaCl 0.9% 2020-0 Yes [...] N ORAL 3-03 mouth. ity of 23:00: [place] [address] Medical Branch thiamine 2020-0 Yes 100mg Take 100 Univ ers (VITAMIN 3-03 mg by ity of B-1) 100 mg 23:00: mouth [place] tablet 52 daily. Medical Branch aspirin 81 2020-0 Yes 81mg Take 81 mg U nivers mg chewable 3-03 by mouth ity of tablet 23:00: daily. [place] [address] Medical Branch atorvastati 2020-0 Yes 40mg Take 40 mg Univers n 40 mg 3-03 by mouth ity of tablet 23:00: at [place] [address] bedtime. Medical Branch NaCl 0.9% 2020-0 Yes [...] by mouth ity of tablet 23:00: daily. [place] [address] Medical Branch atorvastati 2020-0 Yes 40mg Take 40 mg Univers n 40 mg 3-03 by mouth ity of tablet 23:00: at [place] [address] bedtime. Medical Branch NaCl 0.9% 2020-0 Yes [...] ity of 12.5 mg 23:00: mouth 2 [place] 52 (two) Medical times Branch daily. MULTIVITAMI 2020-0 Yes Take by Uni vers N ORAL 3-03 mouth. ity of 23:00: [place] [address] Medical Branch thiamine 2020-0 Yes 100mg Take 100 Univ ers (VITAMIN 3-03 mg by ity of B-1) 100 mg 23:00: mouth [place] tablet 52 daily. Medical Branch aspirin 81 2020-0 Yes 81mg Take 81 mg U nivers mg chewable 3-03 by mouth ity of tablet 23:00: daily. [place] [address] Medical Branch atorvastati 2019-0 Yes 40mg Take 40 mg Univers n 40 mg 3-03 by mouth ity of tablet 23:00: at [place] [address] bedtime. Medical Branch NaCl 0.9% 2019-0 Yes [...] dose [place] mg 00 on Thu [facility] 01/16/20 at Branch 2100, Until Discontinu ed, Routine ranolazine 2019-0 2020- No [id number] 500mg Take 1 Univers 500 mg 12 01-16-03 tablet by ity of hr tablet 00:00: 04:59 mouth [place] 00 :00 every 12 Medical (twelve) Branch hours for 30 days. ranolazine 2020-0 2020- No [id number] 500mg Take 1 Univers 500 mg 12 01-16 04-03 tablet by ity of hr tablet 00:00: 04:59 mouth [place] 00 :00 every 12 Medical (twelve) Branch hours for 30 days. ranolazine 2020-0 2020- No [id number] 500mg Take 1 Univers 500 mg 12 01-16 04-03 tablet by ity of hr tablet 00:00: 04:59 mouth [place] 00 :00 every 12 Medical (twelve) Branch hours for 30 days. ranolazine 2020-0 2020- No [id number] 500mg Take 1 Univers 500 mg 12 01-16-03 tablet by ity of hr tablet 00:00: 04:59 mouth [place] 00 :00 every 12 Medical (twelve) Branch hours for 30 days. ranolazine 2020-0 Yes 500mg 500 mg, Uni vers (RANEXA) 12 01-15 Oral, ity of hr tablet 22:30: Q12H, [place] 500 mg 00 First dose Medical on Thu01/16/20 at 1630, Until Discontinu ed, [...] First dose Medical on [facility] 01/16/20 at 0900, Until Discontinu ed, [...] dose [place] ular + [facility]sbg 00 on [facility] injection 4 01 Starting Medi birdie mg [facility] 01/16/20 Branch at 0155, Until Discontinu ed, Routine, Nausea and Vomiting (N/V) morpHINE 2019-0 2020- No 2mg 2 mg, Slow Un mel injection 2 01-15 03-03 IV Push, ity of mg 07:54: 07[facility] [place] [facility]55 Starting Medical 01/16/20 Branch [...] en 01-15 Oral, ity of (TYLENOL) 07:54: [facility] [place] tablet 650 44 Starting Medic [...] tablet 00 nightly. l furosemide 2018-11 Yes [id number] 40mg Take 1 Univers 40 mg 0-26 tablet by ity of tablet 00:00: mouth [place] 00 daily. Medical Branch furosemide 2018-11 Yes [id number] 40mg Take 1 Univers 40 mg 0-26 tablet by ity of tablet 00:00: mouth [place] 00 daily. Medical Branch furosemide 2018-11 Yes [id number] 40mg Take 1 Univers 40 mg 0-26 tablet by ity of tablet 00:00: mouth [place] 00 daily. Medical Branch furosemide 2018-11 Yes [id number] 40mg Take 1 Univers 40 mg 0-26 tablet by ity of tablet 00:00: mouth [place] 00 daily. Medical Branch furosemide 2019- 2020- No [id number] 40mg Take 1 Univers 40 mg 0-26 04-17 tablet by ity of tablet 00:00: 00:00 mouth [place] 00 :00 daily. Medical Branch magnesium 2019- Yes [id number] 400mg Take 400 Univers oxide 420 0-23 mg by ity of mg Tab 00:00: mouth [place] 00 daily. Medical Branch magnesium 2019- Yes [id number] 400mg Take 400 Univers oxide 420 0-23 mg by ity of mg Tab 00:00: mouth [place] 00 daily. Medical Branch magnesium 2019- Yes [id number] 400mg Take 400 Univers oxide 420 0-23 mg by ity of mg Tab 00:00: mouth [place] 00 daily. Medical Branch magnesium 2019- Yes [id number] 400mg Take 400 Univers oxide 420 0-23 mg by ity of mg Tab 00:00: mouth [place] 00 daily. Medical Branch magnesium 2019- Yes [id number] 400mg Take 400 Univers oxide 420 0-23 mg by ity of mg Tab 00:00: mouth [place] 00 daily. Medical Branch magnesium 2019- Yes [id number] 400mg Take 400 Univers oxide 420 0-23 mg by ity of mg Tab 00:00: mouth [place] 00 daily. [facility] Branch magnesium 2018- 2020- No [id number] 400mg Take 400 Univers oxide 420 0-23 04-22 mg by ity of mg Tab 00:00: 00:00 mouth [place] 00 :00 daily. [facility] Branch Insulin 2019-0 Yes [id number] 30U inject 30 Univers Glargine 9-11 Units ity of 100 unit/mL 00:00: under the [place] (3 mL) 00 skin every Medical injection morning. Branch Insulin 2019-0 Yes [id number] 30U inject 30 Univers Glargine 9-11 Units ity of 100 unit/mL 00:00: under the [place] (3 mL) 00 skin every Medical injection morning. Branch Insulin 2019-0 Yes [id number] 30U inject 30 Univers Glargine 9-11 Units ity of 100 unit/mL 00:00: under the [place] (3 mL) 00 skin every Medical injection morning. Branch Insulin 2019-0 Yes [id number] 30U inject 30 Univers Glargine 9-11 Units ity of 100 unit/mL 00:00: under the [place] (3 mL) 00 skin every Medical injection morning. Branch Insulin Yes [id number] 30U inject 30 Univers Glargine 9-11 Units ity of 100 unit/mL 00:00: under the [place] (3 mL) 00 skin every Medical injection morning. Branch Insulin 2018- Yes [id number] 30U inject 30 Univers Glargine 9-11 Units ity of 100 unit/mL 00:00: under the [place] (3 mL) 00 skin every Medical injection morning. Branch Insulin Yes [id number] 30U inject 30 Univers Glargine 9-11 Units ity of 100 unit/mL 00:00: under the [place] (3 mL) 00 skin every Medical injection morning. Branch Insulin 2020- No [id number] 30U inject 30 Univers Glargine 9-11 04-22 [...] ity of 12.5 mg 15:26: mouth 2 [place] [address] (two) Medical times Branch daily. MULTIVITAMI 0 Yes Take by Uni vers N ORAL 5-10 mouth. ity of 15:26: [place] [address] Medical Branch thiamine 0 Yes 100mg Take 100 Univ ers (VITAMIN 5-10 mg by ity of B-1) 100 mg 15:26: mouth [place] tablet 43 daily. Medical Branch aspirin 81 0 Yes 81mg Take 81 mg U nivers mg chewable 5-10 by mouth ity of tablet 15:26: daily. [place] [address] Medical Branch atorvastati 0 Yes 40mg Take 40 mg Univers n 40 mg 5-10 by mouth ity of tablet 15:26: at [place] 43 bedtime. Medical Branch furosemide 0 Yes 40mg Take 40 mg U nivers 40 mg 5-10 by mouth ity of tablet 15:26: daily. [place] [address] Medical Branch NaCl 0.9% 0 Yes 10mL [...] mg under ity of 15:26: the skin. [place] [address] Medical Branch Cholecalcif 0 Yes Take by Uni vers ann, 5-10 mouth. ity of Vitamin D3, 15:26: [place] 2,000 unit 43 Medical capsule Branch metoprolol 0 Yes 12.5mg Take 12.5 Univers tartrate 5-10 mg by ity of 12.5 mg 15:26: mouth 2 [place] [address] (two) Medical times Branch daily. MULTIVITAMI 2019-0 Yes Take by Uni vers N ORAL 5-10 mouth. ity of 15:26: [place] [address] Medical Branch thiamine 2018-0 Yes 100mg Take 100 Univ ers (VITAMIN 5-10 mg by ity of B-1) 100 mg 15:26: mouth [place] tablet 43 daily. Medical Branch aspirin 81 2019-0 Yes 81mg Take 81 mg U nivers mg chewable 5-10 by mouth ity of tablet 15:26: daily. [place] [address] Medical Branch atorvastati 0 Yes 40mg Take 40 mg Univers n 40 mg 5-10 by mouth ity of tablet 15:26: at [place] [address] bedtime. Medical Branch furosemide 0 Yes 40mg Take 40 mg U nivers 40 mg 5-10 by mouth ity of tablet 15:26: daily. [place] [address] Medical Branch NaCl 0.9% 2018- Yes 10mL Inject 10 Uni vers (NS) Soln 5-10 mL ity of 10 mL with 15:26: intravenou [place] sodium 43 sly once Medical chloride now. Branch 2.5 mEq/mL SolP 17.125 mEq insulin 2018-0 Yes [id number] 4U inject 4 U nivers lispro, 5-10 Units ity of human, 100 00:00: under the [place] unit/mL 00 skin 3 Medical injection (three) Branch times daily before meals. insulin 2018-0 Yes [id number] 4U inject 4 U nivers lispro, 5-10 Units ity of human, 100 00:00: under the [place] unit/mL 00 skin 3 Medical injection (three) Branch times daily before meals. insulin 2018-0 Yes [id number] 4U inject 4 U nivers lispro, 5-10 Units ity of human, 100 00:00: under the [place] unit/mL 00 skin 3 Medical injection (three) Branch times daily before meals. insulin 2019-0 Yes [id number] 4U inject 4 U nivers lispro, 5-10 Units ity of human, 100 00:00: under the [place] unit/mL 00 skin 3 Medical injection (three) Branch times daily before meals. insulin 2018-0 Yes [id number] 4U inject 4 U nivers lispro, 5-10 Units ity of human, 100 00:00: under the [place] unit/mL 00 skin 3 Medical injection (three) Branch times daily before meals. insulin 2018-0 Yes [id number] 4U inject 4 U nivers lispro, 5-10 Units ity of human, 100 00:00: under the [place] unit/mL 00 skin 3 Medical injection (three) Branch times daily before meals. Insulin 2018- Yes [id number] 18U inject Uni vers Glargine 5-10 18-24 ity of 100 unit/mL 00:00: Units [place] (3 mL) 00 under the Medical injection skin every Bran ch morning. insulin 2018-0 Yes [id number] 4U inject 4 U nivers lispro, 5-10 Units ity of human, 100 00:00: under the [place] unit/mL 00 skin 3 Medical injection (three) Branch times daily before meals. insulin 2018-0 Yes [id number] 4U inject 4 U nivers lispro, 5-10 Units ity of human, 100 00:00: under the [place] unit/mL 00 skin 3 Medical injection (three) Branch times daily before meals. insulin 2018- Yes [id number] 4U inject 4 U nivers lispro, 5-10 Units ity of human, 100 00:00: under the [place] unit/mL 00 skin 3 Medical injection (three) Branch times daily before meals. insulin 2018-0 Yes [id number] 4U inject 4 U nivers lispro, 5-10 Units ity of human, 100 00:00: under the [place] unit/mL 00 skin 3 Medical injection (three) Branch times daily before meals. insulin 2018-0 Yes [id number] 4U inject 4 U nivers lispro, 5-10 Units ity of human, 100 00:00: under the [place] unit/mL 00 skin 3 Medical injection (three) Branch times daily before meals. insulin 2020- No [id number] 4U inject 4 Univers lispro, 5-10 05-07 Units ity of human, 100 00:00: 00:00 under the [place] unit/mL 00 :00 skin 3 Medical injection (three) Branch times daily before meals. insulin 2020- No [id number] 4U inject 4 Univers lispro, 5-10 05-07 Units ity of human, 100 00:00: 00:00 under the [place] unit/mL 00 :00 skin 3 Medical injection (three) Branch times daily before meals. Insulin 2019- No [id number] 18U inject Un mel Glargine 5-10 09- 18-24 ity of 100 unit/mL 00:00: 00:00 [...] 3-08 mouth. ity of complex and 16:39: [facility] ( 29 Medical COMPLEX-VIT Branch RAZA C-FOLIC ACID ORAL) potassium Yes 20meq Take 20 Univ ers chloride 20 3-08 mEq by ity of mEq packet 16:39: mouth [place] 29 daily. Medical Branch folic Yes Take by Univers acid/vit B 3-08 mouth. ity of complex and 16:39: [facility] (B 29 Medical COMPLEX-VIT Branch [...] moria 4-20 Jess[place] Route: l 17:00: TOP, [place] 00 Daily, Drug form: OINT, Start date: [...] PO, [place] 00 Drug form: TAB, Daily, Start date: [...] 4-19 [place] tab, l 14:00: Route: PO, [place] 00 Drug form: TAB, QAM, Start date: 03/04/13 9:00:00, Duration: 30 day, Stop date: 04/02/13 9:00:00 Aricept 2013-0 No Esteban G 5 mg, 1 Manjit greg 4-19 [place] tab, l 14:00: Route: PO, [place] 00 Drug form: TAB, QAM, Start date: 03/04/13 9:00:00, Duration: 30 day, Stop date: 04/02/13 9:00:00 Lipitor 2013-0 No Esteban G 20 mg, 1 Mem oria 4-19 [place] tab, l 14:00: Route: PO, [place] 00 Drug form: TAB, QAM, Start date: 03/04/13 9:00:00, Duration: 30 day, Stop date: 04/02/13 9:00:00 Amaryl 2013-0 No Esteban G 1 mg, 1 Memor ia 4-19 [place] tab, l 14:00: Route: PO, [place] 00 Drug form: TAB, Daily, Start date: [...] Stop date: 04/02/13 13:00:00 Mobic 2012-0 No Esteabn G 7.5 mg, 1 Manjit greg 4-18 [...] 30 day, Stop date: 04/02/13 9:00:00 Robaxin 2012- No Esteban G 750 mg, 1 Me moria 4-18 [place] tab, l 22:00: Route: PO, [place] 00 Drug form: TAB, TID, Start date: 03/03/13 17:00:00, Duration: 30 day, Stop date: 04/02/13 13:00:00 Dextrose 5% 2012- No Esteban G 1,000 mL, Memoria with 0.45% 4-18 [place] Rate: 75 l NaCl IV 20:00: ml/hr, [place] 1,000 mL 00 Infuse over: 13.3 hr, Route: IV, kg, Total Volume: 1,000, Start date: 03/03/13 15:00:00, Stop date: 04/02/13 14:59:00 Dextrose 5% 2012- No Esteban G 1,000 mL, Memoria with 0.45% 4-18 [place] Rate: 75 l NaCl IV 20:00: ml/hr, [place] 1,000 mL 00 Infuse over: 13.3 hr, Route: IV, kg, Total Volume: 1,000, Start date: 03/03/13 15:00:00, Stop date: 04/02/13 14:59:00 glucagon 2012- No Esteban G 1 mg, [...] Jessika Route: IV, l 19:52: Drug form: [place] 00 PDR/INJ, PRN, PRN Blood Glucose Results, [...] Jessika mL, Route: l 18:34: IV, Drug [place] form: INJ, Q1H, PRN Pain, Start date: 03/03/13 13:34:00, Duration: 30 day, Stop date: 04/02/13 13:33:00 Sodium 2012- No Esteban G 250 mL, Memor ia Chloride 4-18 [place] Route: l 0.9% IV 18:34: IVPB, [place] 00 Start date: 03/03/13 13:34:00, Duration: 30 day, Stop date: 04/02/13 13:33:00, PRN Line Flush BD Normal 2012- No Esteban G 10 mL, Mem oria Saline 4-18 [place] Route: l Flush 18:34: IVP, Drug [place] 00 Form: INJ, PRN, PRN Line Flush, Start date: 03/03/13 13:34:00, Duration: 30 day, Stop date: 04/02/13 13:33:00 morphine 2012- No Esteban G 2 mg, 1 Mem oria Sulfate 4-18 [place] mL, Route: l 18:34: IV, Drug [place] 00 form: INJ, Q1H, PRN Pain, Start date: 03/03/13 13:34:00, Duration: 30 day, Stop date: 04/02/13 13:33:00 Zofran 2012- No Esteban G 4 mg, Memoria 4-18 [place] Route: l 15:49: IVP, Drug [place] 00 form: INJ, ONCE, Dosing Weight 87.8, kg, Start date: 03/03/13 10:49:00, Stop date: 03/03/13 10:49:00 Zofran 2012-0 No Esteban G 4 mg, Memoria 4-18 [place] Route: l 15:49: IVP, Drug [place] 00 form: INJ, ONCE, Dosing Weight 87.8, kg, Start date: 03/03/13 10:49:00, Stop date: 03/03/13 10:49:00 fentanyl 2012- No Esteban G 25 Memori a 4-18 [place]ika microgram, l 15:48: Route: [place] 00 IVP, ONCE, Dosing Weight 87.8, kg, Start date: 03/03/13 10:48:00, Stop date: 03/03/13 10:48:00 fentanyl 2012- No Esteban G 25 Memori a 4-18 [place] microgram, l 15:48: Route: [place] 00 IVP, ONCE, Dosing Weight 87.8, kg, Start date: 03/03/13 10:48:00, Stop date: 03/03/13 10:48:00 acetaminoph 2012-0 No Esteban G 1,000 mg, Memoria en 10 mg/mL 4-18 [place] Route: IV, l intravenous 15:12: Drug form: [place] solution 00 INJ, ONCE, Dosing Weight 87.8, [...] capsule Common Chloride Chloride [place] with food [facility] Tylenol # 3 Tylenol # 3 Yes Anneliese one tab Common Millender [facility] Vitamin D-3 Vitamin D-3 Yes Anneliese 2 capsule Common [place] [facility] Humalog Humalog Yes Anneliese as Common [place] directed [facility] Aspir-Low Aspir-Low Yes Anneliese 1 tablet Common Millender [facility] Namzaric Namzaric Yes Anneliese 1 Common [place] [facility] Zyprexa Zyprexa Yes Anneliese 1 tablet Comm on Millender [facility] Vitamin B-1 Vitamin B-1 Yes Anneliese 1 tablet Common Millender [facility] Multivitami Multivitami Yes Anneliese as Common n n Millender directed [facility] Lantus Lantus Yes Anneliese as Common [place] directed [facility] Lasix Lasix Yes Anneliese 1 tablet Common Millender [facility] Isosorbide Isosorbide Yes Anneliese 1 tablet Common Mononitrate Mononitrate [place] in [facility] Lyrica Lyrica Yes Anneliese 1 capsule Commo n Millender [facility] Immunizations Ordered Filled Immunization Date Status Comments [facility] e Immunization Name Name SARS-COV-2 [...] Completed Unive rsity of MODERNA VACCINE 00:00:00 [facility] Branch SARS-COV-2 COVID-19 2021-09-16 Completed Unive rsity of MODERNA VACCINE 00:00:00 [facility] Branch SARS-COV-2 COVID-19 2021-09-16 Completed [...] Completed Unive rsity of MODERNA VACCINE 00:00:00 [facility] SARS-COV-2 COVID-19 2021-08-17 Completed Unive rsity of MODERNA VACCINE 00:00:00 [facility] Influenza High Dose 2021-08-17 Completed Unive rsity of 00:00:00 [facility] SARS-COV-2 COVID-19 2021-08-17 Completed Unive rsity of MODERNA VACCINE 00:00:00 [facility] Influenza High Dose 2021-08-17 Completed Unive rsity of 00:00:00 [facility] SARS-COV-2 COVID-19 2021-08-17 Completed Unive rsity of MODERNA VACCINE 00:00:00 [facility] Influenza High Dose 2021-08-17 Completed Unive rsity of 00:00:00 [facility] SARS-COV-2 COVID-19 2021-08-17 Completed Unive rsity of MODERNA VACCINE 00:00:00 [facility] Influenza High Dose 2021-08-17 Completed Unive rsity of 00:00:00 [facility] SARS-COV-2 COVID-19 2021-08-17 Completed Unive rsity of MODERNA VACCINE 00:00:00 [facility] Influenza High Dose 2021-08-17 Completed Unive rsity of 00:00:00 [facility] SARS-COV-2 COVID-19 2021-08-17 Completed Unive rsity of MODERNA VACCINE 00:00:00 [facility] Influenza High Dose 2021-08-17 Completed Unive rsity of 00:00:00 [facility] SARS-COV-2 COVID-19 2021-08-17 Completed Unive rsity of MODERNA VACCINE 00:00:00 [facility] Influenza High Dose 2021-08-17 Completed Unive rsity of 00:00:00 [facility] SARS-COV-2 COVID-19 2021-08-17 Completed Unive rsity of MODERNA VACCINE 00:00:00 [facility] Influenza High Dose 2021-08-17 Completed Unive rsity of 00:00:00 [facility] SARS-COV-2 COVID-19 2021-08-17 Completed Unive rsity of MODERNA VACCINE 00:00:00 [facility] Influenza High Dose 2021-08-17 Completed Unive rsity of 00:00:00 [facility] SARS-COV-2 COVID-19 2021-08-17 Completed Unive rsity of MODERNA VACCINE 00:00:00 [facility] Influenza High Dose 2021-08-17 Completed Unive rsity of 00:00:00 [facility] Zoster(Zostavax)( 2020-09-14 Completed Unive rsity of ingles) 00:00:00 [facility] Zoster(Zostavax)( 2020-09-14 Completed Unive rsity of ingles) 00:00:00 [facility] Zoster(Zostavax)( 2020-09-14 Completed Unive rsity of ingles) 00:00:00 [facility] Zoster(Zostavax)( 2020-09-14 Completed Unive rsity of ingles) 00:00:00 [facility] Zoster(Zostavax)( 2020-09-14 Completed Unive rsity of ingles) 00:00:00 [facility] Zoster(Zostavax)( 2020-09-14 Completed Unive rsity of ingles) 00:00:00 [facility] Zoster(Zostavax)( 2020-09-14 Completed Unive rsity of ingles) 00:00:00 [facility] Zoster(Zostavax)( 2020-09-14 Completed Unive rsity of ingles) 00:00:00 [facility] Zoster(Zostavax)( 2020-09-14 Completed Unive rsity of ingles) 00:00:00 [facility] Zoster(Zostavax)( 2020-09-14 Completed Unive rsity of ingles) 00:00:00 [facility] Influenza High Dose 2020-07-13 Completed Unive rsity of 00:00:00 [facility] Influenza High Dose 2020-07-13 Completed Unive rsity of 00:00:00 [facility] Influenza High Dose 2020-07-13 Completed Unive rsity of 00:00:00 [facility] Influenza High Dose 2020-07-13 Completed Unive rsity of 00:00:00 [facility] Influenza High Dose 2020-07-13 Completed Unive rsity of 00:00:00 [facility] Influenza High Dose 2020-07-13 Completed Unive rsity of 00:00:00 [facility] Influenza High Dose 2020-07-13 Completed Unive rsity of 00:00:00 [facility] Influenza High Dose 2020-07-13 Completed Unive rsity of 00:00:00 [facility] Influenza High Dose 2020-07-13 Completed Unive rsity of 00:00:00 [facility] Influenza High Dose 2020-07-13 Completed Unive rsity of 00:00:00 [facility] Influenza High Dose 2019-09-15 Completed Unive rsity of 00:00:00 [facility] Influenza High Dose 2019-09-15 Completed Unive rsity of 00:00:00 [facility] Influenza High Dose 2019-09-15 Completed Unive rsity of 00:00:00 [facility] Influenza High Dose 2019-09-15 Completed Unive rsity of 00:00:00 [facility] Influenza High Dose 2019-09-15 Completed Unive rsity of 00:00:00 [facility] Influenza High Dose 2019-09-15 Completed Unive rsity of 00:00:00 [facility] Influenza High Dose 2019-09-15 Completed Unive rsity of 00:00:00 [facility] Influenza High Dose 2019-09-15 Completed Unive rsity of 00:00:00 [facility] Influenza High Dose 2019-09-15 Completed Unive rsity of 00:00:00 [facility] Influenza High Dose 2019-09-15 Completed Unive rsity of 00:00:00 [facility] Influenza Virus 2018-09-09 Completed Universit y of Vaccine 00:00:00 [facility] Influenza Virus 2018-09-09 Completed Universit y of Vaccine 00:00:00 [facility] Influenza Virus 2018-09-09 Completed Universit y of Vaccine 00:00:00 [facility] Influenza Virus 2018-09-09 Completed Universit y of Vaccine 00:00:00 [facility] Influenza Virus 2018-09-09 Completed Universit y of Vaccine 00:00:00 [facility] Influenza Virus 2018-09-09 Completed Universit y of Vaccine 00:00:00 [facility] Influenza Virus 2018-09-09 Completed Universit y of Vaccine 00:00:00 [facility] Influenza Virus 2018-09-09 Completed Universit y of Vaccine 00:00:00 [facility] Influenza Virus 2018-09-09 Completed Universit y of Vaccine 00:00:00 [facility] Influenza Virus 2018-09-09 Completed Universit y of Vaccine 00:00:00 [facility] Influenza Virus 2018-09-09 Completed Universit y of Vaccine 00:00:00 [facility] Influenza Virus 2018-09-09 Completed Universit y of Vaccine 00:00:00 [facility] Influenza Virus 2018-09-09 Completed Universit y of Vaccine 00:00:00 [facility] Influenza Virus 2018-09-09 Completed Universit y of Vaccine 00:00:00 [facility] Influenza Virus 2018-09-09 Completed Universit y of Vaccine 00:00:00 [facility] Influenza Virus 2018-09-09 Completed Universit y of Vaccine 00:00:00 [facility] Influenza Virus 2018-09-09 Completed Universit y of Vaccine 00:00:00 [facility] Influenza Virus 2018-09-09 Completed Universit y of Vaccine 00:00:00 [facility] Influenza Virus 2018-09-09 Completed Universit y of Vaccine 00:00:00 [facility] Influenza Virus 2018-09-09 Completed Universit y of Vaccine 00:00:00 [facility] Influenza Virus 2018-09-09 Completed Universit y of Vaccine 00:00:00 [facility] Influenza Virus 2018-09-09 Completed Universit y of Vaccine 00:00:00 [facility] Influenza Virus 2018-09-09 Completed Universit y of Vaccine 00:00:00 [facility] Influenza Virus 2018-09-09 Completed Universit y of Vaccine 00:00:00 [facility] Influenza Virus 2018-09-09 Completed Universit y of Vaccine 00:00:00 [facility] Influenza Virus 2018-09-09 Completed Universit y of Vaccine 00:00:00 [facility] Influenza Virus 2018-09-09 Completed Universit y of Vaccine 00:00:00 [facility] Influenza Virus 2018-09-09 Completed Universit y of Vaccine 00:00:00 [facility] Pneumococcal 2016-11-02 Completed University o f Polysaccharide, 00:[facility]:00 [facility] PPSV23 (PNEUMOVAX) [facility] Pneumococcal 2016-11-02 Completed University o f Polysaccharide, 00:00:00 [facility] PPSV23 (PNEUMOVAX) [facility] Pneumococcal 2016-11-02 [...] 06:06:00 107 mm[Hg] Univer sity of pressure [facility] Diastolic blood 2022-07-12 06:06:00 64 [facility] 20[facility]-12 06:06:00 82 /min [facility] Respiratory rate 2022-07-12 06:06:00 24 /min [facility] Oxygen saturation in 2022-07-12 06:06:00 100 /min [facility] Arterial blood by [facility] Pulse oximetry [place] Body temperature 2022-07-12 05:34:00 36.22 Priyanka [facility] Body height 2022-07-12 05:34:00 170.2 cm [facility] Body weight 2022-07-12 05:34:00 63.504 kg [facility] BMI 2022-07-12 05:34:00 21.93 kg/m2 [facility] Systolic blood 2022-06-10 16:54:00 125 mm[Hg] Univer [facility]ity of pressure [facility] Diastolic blood 2022-06-10 16:54:00 74 mm[Hg] Unive rsity of pressure [facility] Heart rate 2022-06-10 16:54:00 81 /min [facility] Body temperature 2022-06-10 16:54:00 36.67 Priyanka [facility] Respiratory rate 2022-06-10 16:54:00 18 /min [facility] Oxygen saturation in 2022-06-10 16:54:00 98 /min University of Arterial blood by [employer] Pulse oximetry Branch Body weight 2022-06-10 09:07:00 61.462 kg [facility] BMI 2022-06-10 09:07:00 21.22 kg/m2 [facility] Body height 2022-06-03 14:44:00 170.2 cm [facility] Systolic blood 2022-05-31 16:18:00 123 mm[Hg] Univer [facility]ity of pressure [facility] Diastolic blood 2022-05-31 16:18:00 74 mm[Hg] Unive rsity of pressure [facility] Heart rate 2022-05-31 16:18:00 92 /min [facility] Body temperature 2022-05-31 16:18:00 36.78 Priyanka [facility] Respiratory rate 2022-05-31 16:18:00 18 /min [facility] Oxygen saturation in 2022-05-31 16:18:00 93 /min University of Arterial blood by [facility] [employer] Pulse oximetry Branch Body weight 2022-05-30 08:33:00 53.978 kg [facility] BMI 2022-05-30 08:33:00 18.63 kg/m2 [facility] Body height 2022-05-24 20:10:00 170.2 cm [facility] Systolic blood 2022-04-17 03:35:00 110 mm[Hg] Univer [facility]ity of pressure [facility] Diastolic blood 2022-04-17 03:35:00 77 mm[Hg] Unive rsity of pressure [facility] Heart rate 2022-04-17 03:35:00 98 /min [facility] Oxygen saturation in 2022-04-17 03:35:00 99 /min [facility] Arterial blood by [facility] [employer] Pulse oximetry [facility] Body temperature 2022-04-17 03:25:00 37.33 Priyanka [facility] Respiratory rate 2022-04-17 03:25:00 18 /min [facility] Body height 2022-04-17 03:25:00 170.2 cm [facility] Body weight 2022-04-17 03:25:00 77.111 kg [facility] BMI 2022-04-17 03:25:00 26.63 kg/m2 [facility] Systolic blood 2022-03-01 16:36:00 143 mm[Hg] Univer [facility]ity of pressure [facility] Diastolic blood 2022-03-01 16:36:00 80 mm[Hg] Unive [facility]ity of pressure [facility] Heart rate 2022-03-01 16:36:00 98 /min [facility] Respiratory rate 2022-03-01 16:36:00 16 /min [facility] Oxygen saturation in 2022-03-01 16:36:00 97 /min [facility] of Arterial blood by [facility] [employer] Pulse oximetry [facility] Body temperature 2022-03-01 11:42:00 36.94 Priyanka [facility] Body height 2022-03-01 11:42:00 170.2 cm [facility] Body weight 2022-03-01 11:42:00 77.111 kg [facility] BMI 2022-03-01 11:42:00 26.63 kg/m2 [facility] Systolic blood 2021-11-02 17:17:00 109 mm[Hg] Univer [facility]ity of pressure [facility] Diastolic blood 2021-11-02 17:17:00 67 mm[Hg] Unive rsity of pressure [facility] Heart rate 2021-11-02 17:17:00 84 /min [facility] Body temperature 2021-11-02 17:17:00 36.44 Priyanka [facility] Respiratory rate 2021-11-02 17:17:00 18 /min [facility] Oxygen saturation in 2021-11-02 17:17:00 95 /min University of Arterial blood by [facility] birdie Pulse oximetry Branch Body weight 2021-11-02 [...] mm[Hg] [facility] [place] Heart rate 2021-04-25 22:36:00 68 /min [facility] Respiratory rate 2021-04-25 22:36:00 18 /min [facility] Oxygen saturation in 2021-04-25 22:36:00 99 /min University of Arterial blood by [facility] birdie Pulse oximetry Branch Body temperature 2021-04-25 [...] University of Arterial blood by [facility] birdie Pulse oximetry Branch Heart rate 2020-06-26 [...] /min University of Arterial blood by [facility] [employer] Pulse oximetry [facility] Heart rate 2020-06-26 [...] 97 /min University of Arterial blood by [employer] birdie Pulse oximetry Branch Body temperature 2020-05-24 11:44:00 36.94 Priyanka Univ ers[facility] Body height 2020-05-24 11:44:00 172.7 cm [...] 97 /min University of Arterial blood by [facility] Pulse oximetry Branch Body temperature 2020-05-24 [...] 97 /min University of Arterial blood by [facility] Pulse oximetry Branch Systolic blood 2020-03-23 [...] 99 /min [facility] of Arterial blood by [facility] Pulse oximetry [facility] Body weight 2020-03-23 [...] /min University of Arterial blood by [facility] [employer] Pulse oximetry Branch Body temperature 2020-03-21 [...] /min [facility] of Arterial blood by [facility] [employer] Pulse oximetry [facility] Body height 2020-03-05 [...] /min [facility] of Arterial blood by [facility] Pulse oximetry Branch Body height 2020-03-01 00:54:00 170.2 cm [facility] Body weight 2020-03-01 00:54:00 76.975 kg [facility] BMI 2020-03-01 00:54:00 26.58 kg/m2 [facility] Systolic blood 2020-01-17 21:08:00 116 mm[Hg] Univer sity of pressure [facility] Diastolic blood 2020-01-17 21:08:00 78 mm[Hg] Unive rsity of pressure [facility] Heart rate 2020-01-17 21:08:00 88 /min [facility] Body temperature 2020-01-17 21:08:00 36.72 Priyanka Univ ersity of [facility] Respiratory rate 2020-01-17 21:08:00 18 /min [facility] Oxygen saturation in 2020-01-17 21:08:00 98 /min [facility] of Arterial blood by [facility] Pulse oximetry Branch Body height 2020-01-16 06:21:00 172.7 cm [facility] Body weight 2020-01-16 04:35:00 83.462 kg [facility] BMI 2020-01-16 04:35:00 27.98 kg/m2 [facility] Heart Rate 2022-03-10 21:29:55 [facility] Respitory Rate 2022-03-10 21:29:55 [facility] [place] Systolic (mm Hg) 2022-03-10 21:29:46 Manjit rial [place] Diastolic (mm Hg) 2022-03-10 21:29:46 Mem [facility] [place] Heart Rate 2022-03-10 21:29:46 [facility] Temperature Oral (F) 2022-03-10 21:29:23 98.4 F [facility] Heart Rate 2022-03-10 17:19:36 [facility] Respitory Rate 2022-03-10 17:19:36 [facility] [place] Systolic (mm Hg) 2022-03-10 17:19:27 Manjit rial [place] Diastolic (mm Hg) 2022-03-10 17:19:27 Mem [facility] [place] Temperature Oral (F) 2022-03-10 17:19:27 98.4 F [facility] Systolic (mm Hg) 2022-03-10 13:15:26 Manjit rial [place] Diastolic (mm Hg) 2022-03-10 13:15:26 Mem [facility] [place] Temperature Oral (F) 2022-03-10 13:14:53 98.3 F [facility] Respitory Rate 2022-03-10 10:10:43 [facility] Heart Rate 2022-03-10 03:45:00 [facility] Respitory Rate 2022-03-10 03:45:00 [facility] [place] Temperature Oral (F) 2022-03-10 03:44:50 97.9 F [facility] Systolic (mm Hg) 2022-03-10 03:44:47 Manjit rial [place] Diastolic (mm Hg) 2022-03-10 03:44:47 Mem [facility] [place] Heart Rate 2022-03-10 03:44:47 [facility] Heart Rate 2022-03-10 00:45:38 [facility] Respitory Rate 2022-03-10 00:45:38 [facility] [place] Systolic (mm Hg) 2022-03-10 00:45:34 Manjit rial [place] Diastolic (mm Hg) 2022-03-10 00:45:34 Mem [facility] [place] Temperature Oral (F) 2022-03-10 00:45:01 98.2 F [facility] Temperature Oral (F) 2022-03-09 21:31:00 98.6 F [facility] Systolic (mm Hg) 2022-03-09 21:30:45 Manjit rial [place] Diastolic (mm Hg) 2022-03-09 21:30:45 Mem [facility] [place] Respitory Rate 2022-03-09 09:27:14 [facility] Height 2022-03-05 11:53:00 170.18 cm [facility] Weight 2022-03-05 11:53:00 [facility] BMI Calculated 2022-03-05 11:53:00 [facility] Systolic blood 2021-12-25 17:15:32 115 mm[Hg] [facility] pressure Diastolic blood 2021-12-25 17:15:32 89 mm[Hg] [facility] pressure Heart rate 2021-12-25 17:15:32 89 /min [facility] Body temperature 2021-12-25 17:15:32 36.33 Priyanka [facility] Respiratory rate 2021-12-25 17:15:32 18 /min [facility] Oxygen saturation in 2021-12-25 17:15:32 96 /min [facility] Arterial blood by Pulse oximetry Body weight 2021-12-25 10:05:43 73.347 kg [facility] BMI 2021-12-25 10:05:43 25.33 kg/m2 [facility] Body height 2021-12-20 12:37:00 170.2 cm [facility] Temperature Oral (F) 2013-03-07 13:44:00 98.7 F [facility] Heart Rate 2013-03-07 13:44:00 [facility] Respitory Rate 2013-03-07 13:44:00 [facility] [place] Systolic (mm Hg) 2013-03-07 13:44:00 Manjit rial [place] Diastolic (mm Hg) 2013-03-07 13:44:00 Mem [facility] [place] Heart Rate 2013-03-07 09:00:00 [facility] Temperature Oral (F) 2013-03-07 09:00:00 98.1 F [facility] Diastolic (mm Hg) 2013-03-07 09:00:00 Mem [facility] [place] Systolic (mm Hg) 2013-03-07 09:00:00 Manjit rial [place] Respitory Rate 2013-03-07 09:00:00 [facility] [place] Diastolic (mm Hg) 2013-03-07 05:00:00 Mem [facility] [place] Systolic (mm Hg) 2013-03-07 05:00:00 Manjit rial [place] Heart Rate 2013-03-07 05:00:00 [facility] Temperature Oral (F) 2013-03-07 05:00:00 98.1 F [facility] Respitory Rate 2013-03-07 05:00:00 Camilo [facility] [place] Weight 2013-03-03 18:18:00 [facility] Height 2013-03-03 18:18:00 172.72 cm [facility] Height 2013-03-03 18:13:00 172.72 cm [facility] Weight 2013-03-03 18:13:00 [facility] Weight 2013-03-03 11:00:00 [facility] Height 2013-03-03 11:00:00 173 cm [facility] Height 2013-02-03 14:49:00 172.72 cm [facility] Weight 2013-02-03 14:49:00 [facility] Procedures Procedure Date / Time Performing Clinician Source Performed CBC WITH DIFF 2022-07-12 06:31:00 Suraj Guerrero [facility] COVID-19 (ID NOW RAPID 2022-06-10 17:55:00 Sridhar Gordon [facility] POCT GLUCOSE (AUTOMATED) 2022-06-10 16:45:00 Eve Rae [facility] POCT GLUCOSE (AUTOMATED) 2022-06-10 16:43:00 Eve Rae [facility] POCT GLUCOSE (AUTOMATED) 2022-06-10 12:55:00 Eve Rae [facility] POCT GLUCOSE (AUTOMATED) 2022-06-10 09:07:00 Eve Rae [facility] BASIC METABOLIC PANEL 2022-06-10 08:53:00 Lulu Harris [facility] (NA, K, CL, CO2, GLUCOSE, Medica l Branch BUN, CREATININE, CA) CBC WITH DIFF 2022-06-10 08:53:00 Lulu Harris [facility] N-TERMINAL PRO-BNP 2022-06-10 08:53:00 Lulu Harris [facility] POCT GLUCOSE (AUTOMATED) 2022-06-10 05:08:00 Eve Rae [facility] POCT GLUCOSE (AUTOMATED) 2022-06-10 01:37:00 [facility] 2022-06-09 21:52:00 Eve Rae [facility] POCT GLUCOSE (AUTOMATED) 2022-06-09 20:11:00 [facility]SE ([facility]OMATED) 2022-06-09 16:51:00 [facility]SE (AUTOMATED) 2022-06-09 12:47:00 Eve Rae [facility] versity [facility] PHOSPHORUS 2022-06-09 09:39:00 Steven [facility] MAGNESIUM 2022-06-09 09:39:00 Steven [facility] BASIC METABOLIC PANEL 2022-06-09 09:39:00 Lulu Harris [facility] (NA, K, CL, CO2, GLUCOSE, Medica l Branch BUN, CREATININE, CA) N-TERMINAL PRO-BNP 2022-06-09 09:39:00 Jenise Tang [facility] POCT GLUCOSE (AUTOMATED) 2022-06-09 09:37:00 Eve Rae [facility] POCT GLUCOSE (AUTOMATED) 2022-06-09 05:09:00 Eve Rae [facility] POCT GLUCOSE (AUTOMATED) 2022-06-09 01:04:00 Eve Rae [facility] POCT GLUCOSE (AUTOMATED) 2022-06-08 21:43:00 [facility]SE (AUTOMATED) 2022-06-08 16:58:00 [facility] 2022-06-08 16:37:00 [facility] MAGNESIUM 2022-06-08 16:37:00 [facility] BASIC METABOLIC PANEL 2022-06-08 16:37:00 Lulu Harris [facility] (NA, K, CL, CO2, GLUCOSE, Medica l Branch BUN, CREATININE, CA) CBC WITH DIFF 2022-06-08 16:37:00 Steven [facility] GLYCOSYLATED HEMOGLOBIN 2022-06-08 16:37:00 [facility] N-TERMINAL PRO-BNP 2022-06-08 16:37:00 [facility] POCT GLUCOSE (AUTOMATED) 2022-06-08 12:44:00 Eve Rae [facility] POCT GLUCOSE (AUTOMATED) 2022-06-08 01:55:00 Eve Rae [facility] POCT GLUCOSE (AUTOMATED) 2022-06-07 21:47:00 Eve Rae [facility] POCT GLUCOSE (AUTOMATED) 2022-06-07 16:49:00 Eve Rae [facility] POCT GLUCOSE (AUTOMATED) 2022-06-07 12:57:00 Eve Rae [facility] POCT GLUCOSE (AUTOMATED) 2022-06-07 02:37:00 Eve Rae [facility] POCT GLUCOSE (AUTOMATED) 2022-06-06 15:37:00 Eve Rae [facility] POCT GLUCOSE (AUTOMATED) 2022-06-06 13:02:00 Eve Rae [facility] MAGNESIUM 2022-06-06 09:19:00 Heidi [facility] BASIC METABOLIC PANEL 2022-06-06 09:19:00 coretta [facility] (NA, K, CL, CO2, GLUCOSE, Medica l Branch BUN, CREATININE, CA) CBC WITH DIFF 2022-06-06 09:19:00 [facility]) 2022-06-06 01:53:00 Eve Rae [facility] POCT GLUCOSE (AUTOMATED) 2022-06-05 21:34:00 Eve Rae [facility] POCT GLUCOSE (AUTOMATED) 2022-06-05 17:17:00 Eve Rae [facility] N-TERMINAL PRO-BNP 2022-06-05 13:47:00 [facility] POCT GLUCOSE (AUTOMATED) 2022-06-05 13:01:00 Eve Rae [facility] POCT GLUCOSE (AUTOMATED) 2022-06-05 01:17:00 Eve Rae [facility] POCT GLUCOSE (AUTOMATED) 2022-06-04 21:49:00 Eve Rae [facility] TRANSTHORACIC ECHO (TTE) 2022-06-04 18:56:27 Eve Rae [facility] LIMITED W/ DOPPLER, COLOR Medica l Branch AND CONTRAST POCT GLUCOSE (AUTOMATED) 2022-06-04 17:15:00 Eve Rae [facility] TROPONIN I 2022-06-04 15:11:00 [facility]OLIC PANEL 2022-06-04 15:11:00 [facility] K, CL, CO2, GLUCOSE, Medica l Branch BUN, CREATININE, CA) CT HEAD WO CONTRAST 2022-06-04 13:40:00 [facility] 2022-06-04 13:10:00 Eve Rae [facility] TROPONIN I 2022-06-04 01:57:00 Eve Rae [facility] POCT GLUCOSE (AUTOMATED) 2022-06-03 23:23:00 Eve Rae [facility] CT HIP LEFT WO CONTRAST 2022-06-03 19:07:02 Ric Childers [facility] URINALYSIS 2022-06-03 15:50:00 Ric Childers [facility] HB ABO GROUPING 2022-06-03 15:42:00 Ric Childers [facility] LACTIC ACID WHOLE BLOOD 2022-06-03 15:41:00 Ric Childers [facility] PROTHROMBIN TIME / INR 2022-06-03 15:38:00 [facility] COVID-19 (ID NOW RAPID 2022-06-03 15:38:00 Ric Childers [facility] TESTING) Medical Branch LAB ONLY COVID 2022-06-03 15:38:00 Childers, [facility] INTERPRETATION [facility] XR CHEST 1 VW 2022-06-03 15:10:00 Singer [facility] XR HIPS 3 VW LEFT 2022-06-03 15:10:00 Singer [facility] HB ECG ROUTINE & RHYTHM 2022-06-03 14:51:40 Singer [facility] STRIP Medical Branch LIPASE 2022-06-03 14:47:00 Singer [facility] MAGNESIUM 2022-06-03 14:47:00 Singer [facility] TROPONIN I 2022-06-03 14:47:00 Singer [facility] COMP. METABOLIC PANEL 2022-06-03 14:47:00 Singer [facility] ([id number]) Medical Branch CBC WITH DIFF 2022-06-03 14:47:00 Singer [facility] N-TERMINAL PRO-BNP 2022-06-03 14:47:00 Singer [facility] BASIC METABOLIC PANEL 2022-05-31 10:30:00 Danika [facility] (NA, K, CL, CO2, GLUCOSE, Medica l Branch BUN, CREATININE, CA) TROPONIN I 2022-05-31 10:30:00 Julio Cesar [facility] COVID-19 (ID NOW RAPID 2022-05-30 21:43:00 Yamel Garnicashua [facility] TESTING) Medical Branch BASIC METABOLIC PANEL 2022-05-30 08:35:00 [facility] (NA, K, CL, CO2, GLUCOSE, Medica l Branch BUN, CREATININE, CA) BASIC METABOLIC PANEL 2022-05-29 09:12:00 [facility] (NA, K, CL, CO2, GLUCOSE, Medica l Branch BUN, CREATININE, CA) N-TERMINAL PRO-BNP 2022-05-29 09:12:00 [facility] CBC WITH DIFF 2022-05-28 07:54:00 Asamoa, [facility] BASIC METABOLIC PANEL 2022-05-27 10:11:00 [facility] (NA, K, CL, CO2, GLUCOSE, Medica l Branch BUN, CREATININE, CA) N-TERMINAL PRO-BNP 2022-05-27 10:11:[address] [facility] MAGNESIUM 2022-05-26 16:16:00 Christa [facility] BASIC METABOLIC PANEL 2022-05-26 16:16:00 [facility] (NA, K, CL, CO2, GLUCOSE, Medica l Branch BUN, CREATININE, CA) TRANSTHORACIC ECHO (TTE) 2022-05-26 14:47:08 Sonny Garcia [facility] COMPLETE W/ CONTRAST Medical Bra count includes the [facility] D-DIMER 2022-05-25 19:54:00 Christa [facility] TROPONIN I 2022-05-25 13:57:00 Sonny Garcia [facility] BASIC METABOLIC PANEL 2022-05-25 13:57:00 Sonny Garcia [facility] (NA, K, CL, CO2, GLUCOSE, Medica l Branch BUN, CREATININE, CA) POCT GLUCOSE (AUTOMATED) 2022-05-24 16:03:00 Jack Parisi [facility] CT ANGIOGRAM CHEST 2022-05-24 06:48:00 Davis Fam [facility] CT ANGIOGRAM 2022-05-24 06:48:00 Davis Fam [facility] ABDOMEN/PELVIS Medical Branch URINALYSIS 2022-05-24 06:13:00 Davis Fam [facility] XR HIPS 2 VW LEFT 2022-05-24 04:45:00 Davis Fam [facility] XR CHEST 1 VW 2022-05-24 04:44:00 Davis Fam [facility] COVID-19 (ID NOW RAPID 2022-05-24 04:28:00 Davis Fam [facility] TESTING) Medical Branch LAB ONLY COVID 2022-05-24 04:28:00 Davis Fam [facility] INTERPRETATION [facility] TROPONIN I 2022-05-24 04:22:00 Davis Fam [facility] COMP. METABOLIC PANEL 2022-05-24 04:22:00 Davis Fam [facility] ([id number]) [facility] CBC WITH DIFF 2022-05-24 04:22:00 Davis Fam [facility] N-TERMINAL PRO-BNP 2022-05-24 04:22:00 Kina [facility] EKG-12 LEAD 2022-05-24 04:02:12 Davis Fam [facility] CONSENT/REFUSAL FOR 2022-04-17 03:07:20 Doctor Unassigned, [facility] DIAGNOSIS AND TREATMENT [place] [facility] XR LUMBAR SPINE 2 VW 2022-03-01 14:18:00 Angelika Aguilar [facility] POC GLUCOSE 2021-12-25 17:17:00 [facility] CV CARDIAC PET VIABILITY 2021-12-25 16:48:27 Jono Costello [facility] ASSESSMENT ONLY POC GLUCOSE 2021-12-25 16:13:00 [facility] POC GLUCOSE 2021-12-25 15:17:00 [facility] POC GLUCOSE 2021-12-25 14:36:00 [facility] POC GLUCOSE 2021-12-25 14:01:00 [facility] POC GLUCOSE 2021-12-25 13:17:00 [facility] HC COMPLETE BLD COUNT 2021-12-25 10:11:00 [facility] W/AUTO DIFF Balaji BASIC METABOLIC PANEL 2021-12-25 10:11:00 [facility] MAGNESIUM LEVEL 2021-12-25 10:11:00 [facility] Balaji PHOSPHORUS LEVEL 2021-12-25 10:11:00 [facility] Balaji ESTIMATED GFR 2021-12-25 10:11:00 Lauren, [facility] POC GLUCOSE 2021-12-25 10:08:00 Champlain [facility] POC GLUCOSE 2021-12-25 05:58:00 [facility] POC GLUCOSE 2021-12-25 04:37:00 Champlain [facility] POC GLUCOSE 2021-12-25 00:59:00 Champlain [facility] POC GLUCOSE 2021-12-24 19:03:00 Lauren [facility] POC GLUCOSE 2021-12-24 14:07:00 [facility] BASIC METABOLIC PANEL 2021-12-24 10:06:00 James Acosta [facility] MAGNESIUM LEVEL 2021-12-24 10:06:00 James Acosta spital ESTIMATED GFR 2021-12-24 10:06:00 James Acosta Ho spital CBC HEMOGRAM 2021-12-24 10:00:00 James Acosta spital POC GLUCOSE 2021-12-24 03:17:00 Lauren [facility] POC GLUCOSE 2021-12-24 00:27:00 Champlain [facility] POC GLUCOSE 2021-12-23 21:03:00 [facility] ECG 12-LEAD 2021-12-23 20:14:21 James Acosta spital TROPONIN T 2021-12-23 17:08:00 James Acosta Ho spital POC GLUCOSE 2021-12-23 14:06:00 Lauren [facility] CBC HEMOGRAM 2021-12-23 09:53:00 Champlain [facility] BASIC METABOLIC PANEL 2021-12-23 09:53:00 James Acosta [facility] MAGNESIUM LEVEL 2021-12-23 09:53:00 James Acosta spital ESTIMATED GFR 2021-12-23 09:53:00 James Acosta Ho spital POC GLUCOSE 2021-12-23 03:23:00 Champlain [facility] POC GLUCOSE 2021-12-22 23:44:00 [facility] 2021-12-22 17:52:00 [facility] POC GLUCOSE 2021-12-22 13:58:00 [facility] HC COMPLETE BLD COUNT 2021-12-22 11:03:00 [facility] W/AUTO DIFF BASIC METABOLIC PANEL 2021-12-22 11:03:00 [facility] ESTIMATED GFR 2021-12-22 11:03:00 [facility] POC GLUCOSE 2021-12-22 05:06:00 [facility] POC GLUCOSE 2021-12-22 00:05:00 [facility] POC GLUCOSE 2021-12-21 18:26:00 [facility] POC GLUCOSE 2021-12-21 14:02:00 [facility] ECG 12-LEAD 2021-12-21 13:37:23 [facility] HC COMPLETE BLD COUNT 2021-12-21 06:25:00 [facility] W/AUTO DIFF BASIC METABOLIC PANEL 2021-12-21 06:25:00 [facility] ESTIMATED GFR 2021-12-21 06:25:00 [facility] POC GLUCOSE 2021-12-21 03:00:00 [facility] POC GLUCOSE 2021-12-20 23:08:00 [facility] TTE COMPLETE, W CONTRAST, 2021-12-20 20:40:00 [facility] W DOPPLER ([id number]) POC GLUCOSE 2021-12-20 19:45:00 [facility] CV CARDIAC PET STRESS 2021-12-20 18:04:[address] [facility] TEST CV CARDIAC PET MYOCARDIAL 2021-12-20 18:04:26 Jono Costello [facility] PERFUSION IMAGING ANTI XA, UNFRACTIONATED 2021-12-20 16:44:00 [facility] BASIC METABOLIC PANEL 2021-12-20 10:13:00 [facility] PARTIAL THROMBOPLASTIN 2021-12-20 10:13:00 [facility] TIME (PTT) ESTIMATED GFR 2021-12-20 10:13:00 [facility] HC COMPLETE BLD COUNT 2021-12-20 10:13:00 [facility] W/AUTO DIFF POC GLUCOSE 2021-12-20 10:06:00 [facility] COVID-19 QUALITATIVE 2021-12-20 08:22:00 [facility] RT-PCR COVID-19 ANTI-SPIKE IGG 2021-12-20 08:22:00 [facility] ANTIBODY TITER COVID-19 SEROLOGY PATIENT 2021-12-20 08:22:00 [facility] SURVEILLANCE HC COMPLETE BLD COUNT 2021-12-20 08:22:00 [facility] W/AUTO DIFF BASIC METABOLIC PANEL 2021-12-20 08:22:00 [facility] HEMOGLOBIN A1C 2021-12-20 08:22:00 [facility] LIPID PANEL 2021-12-20 08:22:00 [facility] THYROID STIMULATING 2021-12-20 08:22:00 [facility] HORMONE T4, FREE 2021-12-20 08:22:00 [facility] TROPONIN T 2021-12-20 08:22:00 [facility] PROTHROMBIN TIME WITH INR 2021-12-20 08:22:00 [facility] PARTIAL THROMBOPLASTIN 2021-12-20 08:22:00 [facility] TIME (PTT) ANTI XA, UNFRACTIONATED 2021-12-20 08:22:00 [facility] ESTIMATED GFR 2021-12-20 08:22:00 [facility] SMEAR REVIEW 2021-12-20 08:22:00 [facility] POC GLUCOSE 2021-12-20 08:11:00 [facility] ECG 12-LEAD 2021-12-20 07:53:41 [facility] EXTERNAL PROVIDER RECORDS 2021-11-19 06:01:00 Doctor Unassigned, [facility] [place] [facility] POCT GLUCOSE (AUTOMATED) 2021-11-02 22:49:00 Aida Shah [facility] POCT GLUCOSE (AUTOMATED) 2021-11-02 17:06:00 Aida Shah [facility] POCT GLUCOSE (AUTOMATED) 2021-11-02 13:30:00 Aida Shah [facility] TROPONIN I 2021-11-02 09:29:00 Alexandra Stephenson [facility] BASIC METABOLIC PANEL 2021-11-02 09:29:00 Sridhar Gordon [facility] (NA, K, CL, CO2, GLUCOSE, Medica l Branch BUN, CREATININE, CA) CBC WITH DIFF 2021-11-02 09:29:00 Sridhar Gordon [facility] N-TERMINAL PRO-BNP 2021-11-02 09:29:00 Alexandra StephensonHRitesh [facility] POCT GLUCOSE (AUTOMATED) 2021-11-02 01:27:00 Alyssa Aida [facility] POCT GLUCOSE (AUTOMATED) 2021-11-01 17:37:00 Aida Shah [facility] POCT GLUCOSE (AUTOMATED) 2021-11-01 13:40:00 Alyssa Aida [facility] POCT GLUCOSE (AUTOMATED) 2021-11-01 01:10:00 Alyssa Aida [facility] POCT GLUCOSE (AUTOMATED) 2021-10-31 22:28:00 Alyssa Aida [facility] POCT GLUCOSE (AUTOMATED) 2021-10-31 17:29:00 Martha Drake [facility] TROPONIN I 2021-10-31 16:25:00 Alexandra Stephenson K.HRitesh [facility] TRANSTHORACIC ECHO (TTE) 2021-10-31 15:53:00 Alexandra Stephenson [facility] COMPLETE W/ CONTRAST Medical [facility] POCT GLUCOSE (AUTOMATED) 2021-10-31 13:39:00 [facility] TROPONIN I 2021-10-31 10:08:[address] [facility] [place] [place] BASIC METABOLIC PANEL 2021-10-31 10:08:00 [facility] (NA, K, CL, CO2, GLUCOSE, Medica l Branch BUN, CREATININE, CA) LIPID PANEL ([id number])(TOTAL 2021-10-31 10:08:00 Alexandra Stephenson [facility] TRIGLYCERIDES, HDL) CBC WITH DIFF 2021-10-31 10:08:00 [facility] 2021-10-31 10:08:00 [facility] N-TERMINAL PRO-BNP 2021-10-31 10:08:00 Alexandra Stephenson [facility] TROPONIN I 2021-10-31 06:17:[address] [facility] [place] [place] XR CHEST 1 VW 2021-10-31 01:30:56 Martha Drake [facility] LIPASE 2021-10-31 01:25:00 Martha Drake [facility] TROPONIN I 2021-10-31 01:25:00 Martha Drake [facility] COMP. METABOLIC PANEL 2021-10-31 01:25:00 Martha Drake [facility] ([id number]) [facility] CBC WITH DIFF 2021-10-31 01:25:00 Martha Drake [facility] GLYCOSYLATED HEMOGLOBIN 2021-10-31 01:25:00 [facility] PROTHROMBIN TIME / INR 2021-10-31 01:25:00 Martha Drake [facility] ACTIVATED PARTIAL 2021-10-31 01:25:00 Martha Drake [facility] THRMPLAS JACEK [facility] N-TERMINAL PRO-BNP 2021-10-31 01:25:00 Martha Drake [facility] COVID-19 (ID NOW RAPID 2021-10-31 01:25:00 Martha Drake [facility] TESTING) Medical Branch LAB ONLY COVID 2021-10-31 01:25:00 Martha Drake [facility] INTERPRETATION [facility] HB ECG ROUTINE & RHYTHM 2021-10-31 01:20:03 Martha Drake [facility] STRIP [facility] URINALYSIS 2021-04-25 21:01:00 Nallely Bhat [facility] XR LUMBAR SPINE 2 VW 2021-04-25 18:41:00 Nallely Bhat [facility] XR HIPS 2 VW LEFT 2021-04-25 18:41:00 Nallely Bhat [facility] CONSENT/REFUSAL FOR 2021-04-25 15:43:06 Doctor Unassigned, [facility] DIAGNOSIS AND TREATMENT [place] [facility] CT CERVICAL SPINE WO 2020-06-26 09:35:01 Martha Drake [facility] CT LUMBAR SPINE WO 2020-06-26 09:35:01 Martha Drake [facility] CT THORACIC SPINE WO 2020-06-26 09:35:01 Martha Drake [facility] UNILATERAL DUPLEX SCAN OF 2020-05-24 14:53:40 Charanjit Heck [facility] ARTERY BY VASCULAR LAB Medical [facility] ranch XR ANKLE 3+ VW LEFT 2020-05-24 13:22:26 Charanjit Heck [facility] HEPATIC FUNCTION PANEL 2020-05-24 13:13:00 Charanjit Heck [facility] ([id number]) (ALB,T.PRO,BILI Medical Branch T,BU/BC,ALT,AST,ALK PHOS) BASIC METABOLIC PANEL 2020-05-24 13:13:00 Charanjit Heck [facility] (NA, K, CL, CO2, GLUCOSE, Medica l Branch BUN, CREATININE, CA) CBC WITH DIFFERENTIAL 2020-05-24 13:13:00 Charanjit Heck [facility] PROTHROMBIN TIME / INR 2020-05-24 13:13:00 [facility] ACTIVATED PARTIAL 2020-05-24 13:13:00 Charanjit Heck [facility] NOTICE OF PRIVACY 2020-05-24 11:38:26 Doctor Unassigned, [facility] PRACTICES [place] [facility] CONSENT/REFUSAL FOR 2020-05-24 11:35:52 Doctor Unassigned, [facility] DIAGNOSIS AND TREATMENT [place] [facility] POCT GLUCOSE (AUTOMATED) 2020-03-23 22:32:00 [facility] GLUCOSE (AUTOMATED) 2020-03-23 18:07:00 Jamel Flores [facility] POCT GLUCOSE (AUTOMATED) 2020-03-23 14:57:00 Jamel Flores [facility] ECHO ROUTINE W/DOPPLER 2020-03-23 13:33:57 Tereza [facility] EKG-12 LEAD 2020-03-23 12:56:59 Jamel Flores [facility] MAGNESIUM 2020-03-23 11:15:00 [facility]OPONIN I 2020-03-23 11:15:00 Jerome [facility] BASIC METABOLIC PANEL 2020-03-23 11:15:00 Tereza Cano [facility] (NA, K, CL, CO2, GLUCOSE, Medica l Branch BUN, CREATININE, CA) PROTHROMBIN TIME / INR 2020-03-23 11:15:00 Tereza [facility] ACTIVATED PARTIAL 2020-03-23 11:15:[address] [facility] EKG-12 LEAD 2020-03-23 07:51:19 Jamel Flores [facility] MAGNESIUM 2020-03-23 05:55:00 [facility] TROPONIN I 2020-03-23 05:55:00 Jerome [facility] BASIC METABOLIC PANEL 2020-03-23 05:55:00 [facility] (NA, K, CL, CO2, GLUCOSE, Medica l Branch BUN, CREATININE, CA) LIPID PANEL ([id number])(TOTAL 2020-03-23 05:55:00 HamletHannah harrydhi [facility] CHOLESTEROL, Medical Branch TRIGLYCERIDES, HDL) PROTHROMBIN TIME / INR 2020-03-23 02:55:00 Sallie Eckert [facility] ACTIVATED PARTIAL 2020-03-23 02:55:00 Babar [facility] THRMPLAS [facility] XR CHEST 2 VW 2020-03-23 01:52:37 [facility] 2020-03-23 00:50:00 Esteban Singletary [facility] TESTING [facility] FERRITIN SERUM 2020-03-22 23:36:00 [facility] TROPONIN I 2020-03-22 23:36:00 Hayder [facility] COMP. METABOLIC PANEL 2020-03-22 23:36:00 [facility] ([id number]) [facility] IRON PANEL 2020-03-22 23:36:00 [facility] CBC WITH DIFFERENTIAL 2020-03-22 23:36:00 Hayder [facility] N-TERMINAL PRO-BNP 2020-03-22 23:36:00 Esteban [facility] EKG-12 LEAD 2020-03-22 23:08:53 Hayder [facility] EKG-12 LEAD 2020-03-22 23:08:15 Hayder [facility] XR CHEST 1 VW 2020-03-21 20:42:35 Myles Harry [facility] LACTIC ACID WHOLE BLOOD 2020-03-21 20:38:00 Myles Harry Uni [facility] LIPASE 2020-03-21 20:19:00 Myles Harry [facility] TROPONIN I 2020-03-21 20:19:00 Myles Harry [facility] COMP. METABOLIC PANEL 2020-03-21 20:19:00 Myles Harry [facility] ([id number]) [facility] PROTHROMBIN TIME / INR 2020-03-21 20:19:00 Kamryn Myles B [facility] N-TERMINAL PRO-BNP 2020-03-21 20:19:00 Myles Harry [facility] CORONAVIRUS COVID-19 2020-03-21 20:19:00 Kamryn Myles [facility] TESTING [facility] EKG-12 LEAD 2020-03-21 20:11:28 Kamryn Myles [facility] POCT GLUCOSE (AUTOMATED) 2020-03-07 20:56:00 Sarah Harrell [facility] POCT GLUCOSE (AUTOMATED) 2020-03-07 15:34:00 [facility] POCT GLUCOSE (AUTOMATED) 2020-03-07 12:56:00 [facility] URIC ACID 2020-03-07 10:14:00 Holland Briscoe [facility] TROPONIN I 2020-03-07 10:14:00 Lulu Harris o [facility] BASIC METABOLIC PANEL 2020-03-07 10:14:00 Julio Cesar [facility] (NA, K, CL, CO2, GLUCOSE, Medica l Branch BUN, CREATININE, CA) CBC WITH DIFFERENTIAL 2020-03-07 10:14:00 Julio Cesar [facility] N-TERMINAL PRO-BNP 2020-03-07 10:14:00 [facility] POCT GLUCOSE (AUTOMATED) 2020-03-06 21:16:[address] [employer] [facility] POCT GLUCOSE (AUTOMATED) 2020-03-06 16:10:[address] [employer] [facility] POCT GLUCOSE (AUTOMATED) 2020-03-06 12:38:00 [facility] TROPONIN I 2020-03-06 08:51:00 Lulu Harris [facility] BASIC METABOLIC PANEL 2020-03-06 08:51:00 [facility] (NA, K, CL, CO2, GLUCOSE, Medica l Branch BUN, CREATININE, CA) CBC WITH DIFFERENTIAL 2020-03-06 08:51:00 [facility] POCT GLUCOSE (AUTOMATED) 2020-03-06 01:16:00 [facility] 2020-03-05 23:25:00 [facility] POCT GLUCOSE (AUTOMATED) 2020-03-05 21:14:[address] [facility] PO[facility] GLUCOSE (AUTOMATED) 2020-03-05 16:39:00 [facility]SE (AUTOMATED) 2020-03-05 12:47:00 [facility]OPONIN I 2020-03-05 09:50:00 [facility] BASIC METABOLIC PANEL 2020-03-05 09:50:00 [facility] (NA, K, CL, CO2, GLUCOSE, Medica l Branch BUN, CREATININE, CA) CBC WITH DIFFERENTIAL 2020-03-05 09:50:00 [facility] EKG-12 LEAD 2020-03-05 00:36:54 [facility] E[facility]-12 LEAD 2020-03-05 00:31:03 Bobo Urrutia [facility] CORONAVIRUS COVID-19 2020-03-05 00:03:00 Charanjit Heck [facility] XR CHEST 1 VW 2020-03-04 23:58:59 Umang Charanjit [facility] LIPASE 2020-03-04 23:29:00 Umang Charanjit [facility] TROPONIN I 2020-03-04 23:29:00 Charanjit Heck [facility] HEPATIC FUNCTION PANEL 2020-03-04 23:29:00 Charanjit Heck [facility] ([id number]) (ALB,T.PRO,BILI Medical Branch T,BU/BC,ALT,AST,ALK PHOS) BASIC METABOLIC PANEL 2020-03-04 23:29:00 Charanjit Heck [facility] (NA, K, CL, CO2, GLUCOSE, Medica l Branch BUN, CREATININE, CA) CBC WITH DIFFERENTIAL 2020-03-04 23:29:00 Charanjit Heck [facility] PROTHROMBIN TIME / INR 2020-03-04 23:29:00 Charanjit Heck [facility] ACTIVATED PARTIAL 2020-03-04 23:29:00 Umang [facility] THRMPLAS JACEK [facility] N-TERMINAL PRO-BNP 2020-03-04 23:29:00 Umang [facility] EKG-12 LEAD 2020-03-04 23:15:42 Umang [facility] EKG-12 LEAD 2020-03-04 23:10:23 Umang [facility] EMERGENCY DEPARTMENT 2020-03-04 05:01:00 Doctor Unassigned, [facility] DOCUMENTS [place] [facility] POCT GLUCOSE (AUTOMATED) 2020-03-02 15:52:00 Lulu Harris [facility] POCT GLUCOSE (AUTOMATED) 2020-03-02 12:39:00 Lulu Harris [facility] MAGNESIUM 2020-03-02 08:57:[address] [facility] BASIC METABOLIC PANEL 2020-03-02 08:57:00 Ivory Leon [facility] (NA, K, CL, CO2, GLUCOSE, Medica l Branch BUN, CREATININE, CA) N-TERMINAL PRO-BNP 2020-03-02 08:57:00 Carolyn [facility] POCT GLUCOSE (AUTOMATED) 2020-03-01 20:39:00 Lulu Harris [facility] MAGNESIUM 2020-03-01 08:43:00 Lulu Harris [facility] TROPONIN I 2020-03-01 08:43:[address] [facility] BASIC METABOLIC PANEL 2020-03-01 08:43:00 Lulu Harris [facility] (NA, K, CL, CO2, GLUCOSE, Medica l Branch BUN, CREATININE, CA) CBC WITH DIFFERENTIAL 2020-03-01 08:43:00 Lulu Harris [facility] N-TERMINAL PRO-BNP 2020-03-01 08:43:00 Carolyn [facility] VITAMIN B12, LEVEL 2020-03-01 03:49:00 Carolyn [facility] FOLATE 2020-03-01 03:49:[address] [facility] SEDIMENTATION RATE 2020-03-01 03:49:00 Carolyn [facility] POCT GLUCOSE (AUTOMATED) 2020-03-01 03:39:00 Lulu Harris [facility] PHOSPHORUS 2020-03-01 02:28:00 Steven Lulu [facility] URIC ACID 2020-03-01 02:28:[address] [facility] TROPONIN I 2020-03-01 02:28:[address] [facility] HEPATIC FUNCTION PANEL 2020-03-01 02:28:00 Carolyn alek [facility] ([id number]) (ALB,T.PRO,[facility] T,BU/BC,ALT,AST,ALK PHOS) PROTHROMBIN TIME / INR 2020-03-01 02:28:00 Carolyn alek [facility] N-TERMINAL PRO-BNP 2020-03-01 02:28:00 Lulu Harris [facility] PROCALCITONIN 2020-03-01 02:28:[address] [facility] EKG-12 LEAD 2020-03-01 01:54:29 [facility] 2020-02-29 23:16:21 Bobo Urrutia [facility] XR CHEST 1 VW COVID 2020-02-29 23:14:25 Bobo Urrutia [facility] EKG-12 LEAD 2020-02-29 23:13:50 Bobo rUrutia [facility] LACTIC ACID WHOLE BLOOD 2020-02-29 22:21:00 Bobo Urrutia [facility] CORONAVIRUS COVID-19 2020-02-29 22:20:00 Bobo Urrutia [facility] TESTING [facility] CREATINE KINASE 2020-02-29 22:14:[address] [facility] URIC ACID 2020-02-29 22:14:[address] [facility] LIPASE 2020-02-29 22:14:00 Bobo Urrutia [facility] MAGNESIUM 2020-02-29 22:14:[address] [facility] TROPONIN I 2020-02-29 22:14:00 Bobo Urrutia [facility] THYROID STIMULATING 2020-02-29 22:14:00 Ivory Leon [facility] HORMONE [facility] BASIC METABOLIC PANEL 2020-02-29 22:14:00 Bobo Urrutia [facility] (NA, K, CL, CO2, GLUCOSE, Medica l Branch BUN, CREATININE, CA) CBC WITH DIFFERENTIAL 2020-02-29 22:14:00 Bobo Urrutia [facility] GLYCOSYLATED HEMOGLOBIN 2020-02-29 22:14:00 Carolyn alek [facility] (A1C) [facility] N-TERMINAL PRO-BNP 2020-02-29 22:14:00 Ivory [facility] EKG-12 LEAD 2020-02-29 21:59:12 Bobo Urrutia [facility] EKG-12 LEAD 2020-02-29 21:48:49 Bobo Urrutia [facility] EMERGENCY DEPARTMENT 2020-02-29 05:01:00 Doctor Unassigned, [facility] DOCUMENTS [facility] POCT GLUCOSE (AUTOMATED) 2020-01-17 18:15:00 Sarah Harrell [facility] TROPONIN I 2020-01-17 16:31:00 Julio Cesar [facility] ACTIVATED PARTIAL 2020-01-17 16:31:00 [facility] ([facility]OMATED) 2020-01-17 11:56:00 Julio Cesar [facility] TROPONIN I 2020-01-17 09:52:00 Julio Cesar [facility] BASIC METABOLIC PANEL 2020-01-17 09:52:00 [facility] (NA, K, CL, CO2, GLUCOSE, Medica l Branch BUN, CREATININE, CA) CBC WITH DIFFERENTIAL 2020-01-17 09:52:00 [facility] 2020-01-17 09:52:00 [facility] ([facility]OMATED) 2020-01-16 23:59:00 Julio Cesar [facility] EKG-12 LEAD 2020-01-16 22:15:[address] [facility] [place] [place] [facility]OPONIN I 2020-01-16 20:04:00 Julio Cesar [facility] ACTIVATED PARTIAL 2020-01-16 20:04:00 Kael [facility] POCT GLUCOSE (AUTOMATED) 2020-01-16 17:05:00 [facility] PO[facility] GLUCOSE (AUTOMATED) 2020-01-16 13:38:00 [facility]OPON[facility] I 2020-01-16 11:11:[address] [facility] [place] [place] LIPID PANEL (50112)(TOTAL 2020-01-16 11:11:00 Julio Cesar [facility] TRIGLYCERIDES, HDL) ACTIVATED PARTIAL 2020-01-16 11:11:00 Julio Cesar [facility] CRITICAL CARE 2020-01-16 05:48:18 Umang Charanjit [facility] XR CHEST 1 VW 2020-01-16 04:46:44 Umang [facility] TROPONIN I 2020-01-16 04:38:00 Charanjit Heck [facility] HEPATIC FUNCTION PANEL 2020-01-16 04:38:00 Charanjit Heck [facility] ([id number]) (ALB,T.PRO,BILI Medical Branch T,BU/BC,ALT,AST,ALK PHOS) BASIC METABOLIC PANEL 2020-01-16 04:38:00 Charanjit Heck [facility] (NA, K, CL, CO2, GLUCOSE, Medica l Branch BUN, CREATININE, CA) CBC WITH DIFFERENTIAL 2020-01-16 04:38:00 Charanjit Heck [facility] GLYCOSYLATED HEMOGLOBIN 2020-01-16 04:38:00 Julio Cesar [facility] (A1C) [facility] PROTHROMBIN TIME / INR 2020-01-16 04:38:00 Charanjit Heck [facility] ACTIVATED PARTIAL 2020-01-16 04:38:00 Charanjit Heck [facility] THRMPLAS [facility] N-TERMINAL PRO-BNP 2020-01-16 04:38:00 Umang [facility] EKG-12 LEAD 2020-01-16 04:37:48 Umang [facility] EKG-12 LEAD 2020-01-16 04:35:35 Umang [facility] AUTHORIZATION FOR RELEASE 2019-07-12 05:01:00 Doctor Unassigned, [facility] 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 Coronary artery bypass [facility] graft Vasectomy [facility] Plan of Care Planned Activity Planned Date Details Comments Source Future Scheduled 2022-08-14 [facility] 14:42:01 VACCINES (1 of 3 - 3-dose series) [code = HEPATITIS B VACCINES (1 of 3 - 3-dose series)] Future Scheduled 2022-08-14 DIABETIC FOOT EXAM [facility] Test 14:42:01 [code = DIABETIC FOOT EXAM] Future Scheduled 2022-08-14 DIABETES: [facility]AL [facility] 14:42:01 EYE EXAM [code = DIABETES: RETINAL EYE EXAM] Future Scheduled 2022-08-14 SHINGLES [facility]ACCINES [facility] 14:42:01 (1 of 2) [code = SHINGLES VACCINES (1 of 2)] Future Scheduled 2022-08-14 COVID-19 VACCINE (3 [facility] Test 14:42:01 - Booster for Moderna series) [code = COVID-19 VACCINE (3 - Booster for Moderna series)] Future Scheduled 2022-08-14 INFLUENZA VACCINE [facility] 14:42:01 [code = INFLUENZA VACCINE] Future Scheduled 2022-07-16 [facility] 04:38:26 VACCINES (1 of [...] INFLUENZA VACCINE] Future Scheduled 2022-07-03 [facility]ITIS [facility] Test 03:27:45 VACCINES (1 of [...] Type Clinicians Facility Department ID 2022-03-06 Outpatient [facility] [id number] [place] 08:51:10 [id number] [facility] 2021-12-16 Inpatient ELIZA VillavicencioCL OUTD [id number] [facility] 11:30:00 Jim 02 [facility] 2021-12-16 Outpatient [facility] [id number] Common 09:19:01 [facility] 2021-12-11 Outpatient Lester, [facility] [id number] Common 14:38:21 Anneliese [facility] 2021-12-11 Outpatient Lester, [facility] [id number] Common 11:50:18 Anneliese [facility] 2021-09-16 Emergency [facility] [id number] Univers 00:23:34 ity [facility] 2021-09-13 Emergency [facility] [id number] Univers 11:42:35 [facility] 2021-09-13 Emergency [facility] [id number] Univers 05:40:48 [facility] 2022-07-12 2022-07-12 Emergency X YOLANDA, [facility] ERT [id number] Univers 00:31:00 01:59:00 SURAJ itazra [facility] 2022-07-12 2022-07-12 Emergency Yolanda [facility] 1.2.840.114 [id number] Univers 00:31:00 01:59:00 Suraj RAMSEY [id number] ity of [facility] [place] [id number] [address] 2022-06-11 2022-06-11 Transition SHAREE Maria 1.2.840.114 [id number] Univers 00:00:00 00:00:00 of Care Supa Adela [place] 350.1.13.10 [place] [id number] [address] 2022-06-03 2022-06-10 Inpatient X KYRA [facility] [id number] Univers 09:43:00 16:00:00 EVE leon [facility] 2022-06-03 2022-06-10 [facility] Ric Childers [facility] 1.2.840.1 14 [id number] Univers 09:43:00 16:00:00 Encounter Eve Rae 350.1.13.10 ity of [facility] [place] [id number] [address] 2022-06-02 2022-06-02 Transition SHAREE Silva 1.2.840.114 [id number] Univers 00:00:00 00:00:00 of Care Isatu URI 350.1.13.10 [place] [id number] [address] 2022-05-23 2022-05-31 Inpatient X PERFECTO GARNICA [facility] ZEFERINO 1 [id number] Univers 23:06:00 16:10:00 PERFECTO GARNICA [facility] 2022-05-23 2022-05-31 [facility] Davis Fam [facility] 1.2.840.11 [id number] Univers 23:06:00 16:10:00 [facility] 350.1. 13.10 ity of [place] 4.2.7.2.686 [place] [facility] [id number] [facility] [address] [facility] ([facility]) 2022-04-23 2022-04-23 ambulatory STLMLC STLMLC [id number] Common 00:00:00 00:00:00 Spirit - [facility] 2022-04-16 2022-04-16 Emergency X RAJINDER [facility] ERT [id number] Univers 22:29:00 23:27:00 LUZ leon [facility] 2022-04-16 2022-04-16 Emergency Rajinder [facility] 1.2.944.310 [id number] Univers 22:29:00 23:27:00 Luz Kumar [place] 350.1.13.10 i ty of [facility] 4.2.7.2.686 [facility] [id number] [address] 2022-03-05 2022-03-11 Inpatient [facility] [id number] Memoria 11:12:00 03:30:[address] 2022-03-05 2022-03-11 Inpatient [facility] [id number] Memoria 11:12:00 03:30:[address] 2022-03-05 2022-03-10 [facility] 06:12:00 22:30:00 BRODIE 2022-03-05 2022-03-10 Outpatient Miguel [facility] [id number] 06:12:00 22:30:00 Brodie Jermaine [place] 2022-03-05 2022-03-05 Outpatient Miguel [facility] [id number] 06:12:00 06:12:00 Brodie Singletary 2022-03-01 2022-03-01 Emergency X LAUREN [facility] ERT [id number] Univers 06:52:00 12:04:00 ANGELIKA leon [facility] 2022-03-01 2022-03-01 Emergency Lauren [facility] 1.2.840.114 [id number] [facility] 06:52:00 12:04:00 Angelika RAMSEY 350.1.13.10 [facility] 4.2.7.2.686 [facility] [id number] [facility] 084 Branch 2021-12-25 2021-12-25 Hospital Attar, 1.2.840.1 [id number] Methodi 07:00:00 23:59:00 Encounter Jono 67333.1.1 356 s t 3.430.2.7 Hospit a .3.352428 l .8 2021-12-25 2021-12-25 [facility] Attar, 1.2.840.1 [id number] Methodi 07:00:00 23:59:00 Encounter Jono [id number] 356 s t 3.430.2.7 Hospit a .3.400924 l .8 2021-12-19 2021-12-25 [facility], 1.2.840.1 [id number] Methodi 23:41:00 17:49:00 Encounter Jayson O. 94822.1.[address] 3.430.2.7 Hospit a .3.116034 l .8 2021-12-19 2021-12-25 [facility], 1.2.840.1 [id number] Methodi 23:41:00 17:49:00 Encounter Jayson O. 97113.1.[address] 3.430.2.7 Hospit a .3.977456 l .8 2021-12-24 2021-12-24 ambulatory STLMLC STLMLC [id number] Common 00:00:00 00:00:00 [facility] 2021-12-20 2021-12-20 [facility] Attar, 1.2.840.1 [id number] Methodi 11:00:00 23:59:00 Encounter Jono 32162.1.1 193 s t 3.430.2.7 Hospit a .3.868489 l .8 2021-12-20 2021-12-20 [facility] Attanam, 1.2.840.1 [id number] 35274 Methodi 11:00:00 23:59:00 Encounter Jono 19391.1.1 193 s t 3.430.2.7 Hospit a .3.529019 l .8 2021-12-17 2021-12-17 ambulatory [facility] [id number] Common 00:00:00 00:00:00 [facility] 2021-12-16 2021-12-16 [facility] [id number] Common 00:00:00 00:00:00 [facility] 2021-11-19 2021-11-19 Orders Doctor ROBERT 1.2.840.114 [id number] Univers 00:00:00 00:00:00 Only Unassigned, ASHLEIGH 350.1.13.10 ity of [place] [facility] 4.2.7.2.686 [place] [id number] [facility] 009 Branch 2021-11-04 2021-11-04 Transition SHAREE Maria 1.2.840.114 [id number] Univers 00:00:00 00:00:00 of Care Supa [place] 350.1.13.10 ity of [place] 4.2.7.2.686 [facility] [id number] [facility] 403 Branch 2021-10-30 2021-11-02 Inpatient X ALYSSA [facility] ZEFERINO [id number] Univers 19:14:00 18:15:00 AIDA ity of [facility] 2021-10-30 2021-11-02 [facility] 1.2.840. 114 [id number] Univers 19:14:00 18:15:00 Encounter Keerthi Shahashley RAMSEY 350.1.13.10 ity of [facility] 4.2.7.2.686 [facility] [id number] [facility] 081 Branch 2021-05-17 2021-05-17 Letter PcpROBERT 1.2.840.114 [id number] Univers 00:00:00 00:00:00 (Out) Patient ASHLEIGH 350.1.13.10 it y of Does [facility] [place].2.[place] [id number] [facility] 019 Branch 2021-04-25 2021-04-25 Emergency Cece, TRAUMA 1.2.697.748 [id number] [facility] 10:43:00 17:38:00 [facility] 350.1.13.10 i ty of [place] [id number] [facility] 014 Branch 2020-06-26 2020-06-26 Emergency [facility], [facility] 1.2.062.688 [id number] [facility] 03:50:00 06:45:00 Martha Ramsey 350.1.13.10 it[place] of [place] [id number] [facility] 084 [place] 2020-06-26 2020-06-26 Emergency [facility], [facility] 1.2.478.733 [id number] 03:50:00 06:45:00 Martha Ramsey 350.1.13.10 [place] 4.2.7.2.686 [place] [id number] [facility] 2020-05-24 2020-05-24 Emergency [facility] 1.2.182.391 [id number] [facility] 06:40:47 10:54:00 Charajnit [place] 350.1.13.10 i ty of [place] [id number] [address] 2020-05-24 2020-05-24 [facility] 1.2.153.142 [id number] 06:40:47 10:54:00 Charanjit [place] 350.1.13.10 [place] 4.2.7.2.686 [place] [id number] [facility] 2020-03-29 2020-03-29 Letter Jamel Flores 1.2.840.114 [id number] Univers 00:00:00 00:00:00 (Out) T Ashleigh 350.1.13.10 it y of [facility] 4.2.7.2.686 [place] [phone] [place] 088299 [place] 2020-03-29 2020-03-29 Letter Jamel Flores 1.2.840.114 [id number] 00:00:00 00:00:00 (Out) Justina Ashleigh 350.1.13.10 [facility] 4.2.7.2.686 [id number] [facility] 2020-03-26 2020-03-26 Transition Sharee George 1.2.840.114 [id number] Univers 00:00:00 00:00:00 of Care Sherrellbritany Hah[place] 350.1.13.10 it y of [place].2.[place] [id number] [facility] 403 [place] 2020-03-26 2020-03-26 Transition Sharee George 1.2.840.114 [id number] 00:00:00 00:00:00 of Care Sherrellbritany [place] 350.1.13.10 [place] 4.2.7.2.686 [id number] [facility] 2020-03-22 2020-03-23 Emergency Sallie Eckert 1..840. 114 [id number] Univers 18:02:47 21:55:00 Jamel Flores 350.1.13.10 ity of [facility] 4.2.7.2.686 [place] as [id number] [place] 088299 [place] 2020-03-22 2020-03-23 Outpatient X [facility] [id number] Univers 18:02:47 21:55:00 ity [facility] 2020-03-21 2020-03-21 Emergency [place], [facility] 1..840.114 [id number] Univers 15:02:08 17:16:00 Myles Ramsey 350.1.13.10 i ty [facility] 4.2.7.2.[place] [id number] [address] 2020-03-21 2020-03-21 Emergency X KAMRYN, [facility] ERT [id number] Univers 15:02:08 17:16:00 MYLES ity [facility] 2020-03-13 2020-03-13 Outpatient Raju_P MMG MMG [id number] [place] 05:24:00 05:24:00 0428 Medical [facility] 2020-03-08 2020-03-08 Transition Sharee Cool 1.2.840.114 [id number] Univers 00:00:00 00:00:00 of Care Prema Hahny 350.1.13.10 i ty of [place].2.[place] [id number] [address] 2020-03-04 2020-03-07 [facility] Charanjit Heck [facility] 1.2.840.1 14 [id number] Univers 18:01:05 18:00:00 Encounter Julio Cesar Sarah Ramsey 350.1.13.10 ity of [place] 4.2.7.2.686 [facility] [id number] [address] 2020-03-04 2020-03-07 Inpatient X JULIO [facility] [id number] Univers 18:01:05 18:00:00 SARAH ity [facility] 2020-03-03 2020-03-03 Transition Belinda Silvakvng 1.2.840.114 [id number] Univers 00:00:00 00:00:00 of Care Isatu Grewal 350.1.13.10 it y of [place] [id number] [address] 2020-02-29 2020-03-02 [facility] Bobo Urrutia [facility] 1.2.840.11 [id number] Univers 16:53:09 12:18:00 Encounter Lulu Harris 350.1.13.10 ity of [place] 4.2.7.2.686 [facility] [phone] [address] 2020-02-29 2020-03-02 Inpatient X STEVEN [facility] [id number] Univers 16:53:09 12:18:00 LULU leon [facility] 2020-02-15 2020-02-15 Outpatient R CHAVA [facility] [id number] Univers 11:30:00 11:30:00 ROSEMARY leon [facility] 2020-02-15 2020-02-15 Telemedici Chava [facility] 1.2.840.114 [id number] Univers 08:13:42 08:43:42 ne Visit Rosemary Ramsey 350.1.13.10 it[place] of [place] [phone] Me dical nal [address] 2020-01-18 2020-01-18 Transition Sharee Harvey 1.2.840.114 [id number] Univers 00:00:00 00:00:00 of Care Ana M Grewal 350.1.13.10 it y of [place].2.[place] [id number] [facility] 403 Branch 2020-01-15 2020-01-17 [facility] Charanjit Heck [facility] 1.2.840.1 14 [id number] Univers 22:33:37 16:58:00 Encounter Alicerosalio Sarah Diego 350.1.13.10 ity of [place] [phone] [facility] 081 Branch 2020-01-15 2020-01-17 Outpatient X JULIO [facility]ESAR [facility] [id number] Univers 22:33:37 16:58:00 [facility] 2019-10-07 2019-10-07 [facility] [id number] Common 10:48:00 10:48:00 [facility] [address] [facility] 2019-10-05 2019-10-05 [facility] [id number] Common 16:06:00 16:06:00 [facility] [address] [facility] 2019-07-27 2019-07-27 Alec Larsen [facility] 1.2.840.114 [id number] Univers 00:00:00 00:00:00 Georgianajcarlos [place] 350.1.13.10 i ty of [place] [phone] Nh dical nal 220 [facility] 2019-07-12 2019-07-12 [facility] [id number] Common 16:24:00 16:24:00 [facility] [address] [facility] 2019-07-12 2019-07-12 Orders Doctor JOENS 1.2.840.114 [id number] Univers 00:00:00 00:00:00 Only Unassigned, ASHLEIGH 350.1.13.10 ity of [place] [facility] 4.2.7.2.686 [place] [phone] [place] [address] Branch 2019-07-06 2019-07-06 [facility] [id number] Common 14:00:00 14:00:00 [address] [facility] [address] [facility] 2013-03-03 2013-03-07 Inpatient nullFlavo MH [id number] Memoria 09:30:00 09:25:00 r [facility] 01 l [place] 2013-03-03 2013-03-07 Inpatient nullFlavo MH [id number] Memoria 09:30:00 09:25:00 r [facility] 01 l [place] 2013-02-03 2013-02-03 MARIA E nullFlavo [id number] Memoria 08:45:00 11:45:00 [facility] [place] 2013-02-03 2013-02-03 MARIA E nullFlavo [id number] Memoria 08:45:00 11:45:00 [facility] [place] 00 l [place] Results Test Description Test Time Test Comments [...] 34.1 g/dL 31.2-35 RDW-SD (test code = 11631-2) 50.7 fL 38.5-51.6 RDW-CV (test code = 788-0) 14.8 % 12.1-15.4 PLT (test code = 777-3) See_Comment [Au tomated message] The system which ge nerated this result transmit diamante reference range: 150 - 32 8 10*3/?L. The reference range was not used to interpret th is result as normal/abnormal . MPV (test code = 54889-1) 9.4 fL 9.8-13 L NRBC/100 WBC (test code = See_Comment [ Automated message] The [id number]) system which ge nerated this result transmit diamante reference range: 0.0 - 10 .0 /100 WBCs. The reference r corey was not used to interpr et this result as normal/abnor mal. NRBC x10^3 (test code = See_Comment [Au tomated message] The 6270515271) system which ge nerated this result transmit diamante reference range: 10*3/?L. The reference range was not u sed to interpret this result as normal/abnormal . GRAN MAT (NEUT) % (test code 67.3 % = 770-8) IMM GRAN % (test code = 0.20 % 5555695801) LYMPH % (test code = 736-9) 20.2 % MONO % (test code = 5905-5) 9.9 % EOS % (test code = 713-8) 1.7 % BASO % (test code = 706-2) 0.7 % GRAN MAT x10^3(ANC) (test 3.99 10*3/uL 1.99-6.95 code = 5319421347) IMM GRAN x10^3 (test code = 0-0.06 2837518777) LYMPH x10^3 (test code = 1.20 10*3/uL 1.09-3.23 731-0) MONO x10^3 (test code = 0.59 10*3/uL 0.36-1.02 742-7) EOS x10^3 (test code = 0.10 10*3/uL 0.06-0.53 711-2) BASO x10^3 (test code = 0.04 10*3/uL 0.01-0.09 704-7) Lab Interpretation (test Abnormal code = 79408-5) [facility] GLUCOSE (AUTOMATED)2022-06-10 16:54:59 Test Item Value Reference Range Interpretation Comments POCT GLU (test code = 9505146773) 301 mg/dL 70-110 H Lab Interpretation (test code = Abnormal 53936-9) [facility] GLUCOSE (AUTOMATED)2022-06-10 16:54:59 Test Item Value Reference Range Interpretation Comments POCT GLU (test code = 0333270152) 163 mg/dL 70-110 H Lab Interpretation (test code = Abnormal 44606-4) [facility] GLUCOSE (AUTOMATED)2022-06-10 13:27:49 Test Item Value Reference Range Interpretation Comments POCT GLU (test code = 4360248196) 177 mg/dL 70-110 H Lab Interpretation (test code = Abnormal 39928-1) [facility] GLUCOSE (AUTOMATED)2022-06-10 09:33:01 Test Item Value Reference Range Interpretation Comments POCT GLU (test code = 8407128561) 179 mg/dL 70-110 H Lab Interpretation (test code = Abnormal 36377-6) [facility] GLUCOSE (AUTOMATED)2022-06-10 05:14:48 Test Item Value Reference Range Interpretation Comments POCT GLU (test code = 0855648647) 223 mg/dL 70-110 H Lab Interpretation (test code = Abnormal 87874-1) [facility] GLUCOSE (AUTOMATED)2022-06-10 01:41:35 Test Item Value Reference Range Interpretation Comments POCT GLU (test code = [id number]) 213 mg/dL 70-110 H Lab Interpretation (test code = Abnormal 69746-3) [facility] GLUCOSE (AUTOMATED)2022-06-09 21:56:12 Test Item Value Reference Range Interpretation Comments POCT GLU (test code = [id number]) 233 mg/dL 70-110 H Lab Interpretation (test code = Abnormal 69904-3) [facility] GLUCOSE (AUTOMATED)2022-06-09 21:56:07 Test Item Value Reference Range Interpretation Comments POCT GLU (test code = [id number]) 223 mg/dL 70-110 H Lab Interpretation (test code = Abnormal 46007-5) [facility] GLUCOSE (AUTOMATED)2022-06-09 17:25:54 Test Item Value Reference Range Interpretation Comments POCT GLU (test code = [id number]) 310 mg/dL 70-110 H Lab Interpretation (test code = Abnormal 90741-3) [facility] [facility] GLUCOSE (AUTOMATED)2022-06-09 13:11:43 Test Item Value Reference Range Interpretation Comments POCT GLU (test code = 6872196999) 221 mg/dL 70-110 H Lab Interpretation (test code = Abnormal 44938-7) [facility] GLUCOSE (AUTOMATED)2022-06-09 12:31:00 Test Item Value Reference Range Interpretation Comments POCT GLU (test code = 8062924047) 157 mg/dL 70-110 H Lab Interpretation (test code = Abnormal 52618-7) [facility] GLUCOSE (AUTOMATED)2022-06-09 10:39:53 Test Item Value Reference Range Interpretation Comments POCT GLU (test code = 3472346563) 185 mg/dL 70-110 H Lab Interpretation (test code = Abnormal 16481-5) [facility] GLUCOSE (AUTOMATED)2022-06-09 05:11:06 Test Item Value Reference Range Interpretation Comments POCT GLU (test code = 9399446314) 213 mg/dL 70-110 H Lab Interpretation (test code = Abnormal 63621-3) [facility] GLUCOSE (AUTOMATED)2022-06-09 01:07:59 Test Item Value Reference Range Interpretation Comments POCT GLU (test code = 8472148128) 192 mg/dL 70-110 H Lab Interpretation (test code = Abnormal 98657-2) [facility] GLUCOSE (AUTOMATED)2022-06-08 21:46:21 Test Item Value Reference Range Interpretation Comments POCT GLU (test code = 7482092490) 234 mg/dL 70-110 H Lab Interpretation (test code = Abnormal 94963-5) [facility] GLUCOSE (AUTOMATED)2022-06-08 17:00:47 Test Item Value Reference Range Interpretation Comments POCT GLU (test code = 6203029879) 449 mg/dL 70-110 H Lab Interpretation (test code = Abnormal 66952-5) [facility] GLUCOSE (AUTOMATED)2022-06-08 14:24:36 Test Item Value Reference Range Interpretation Comments POCT GLU (test code = 5800733078) 464 mg/dL 70-110 HH Lab Interpretation (test code = Abnormal 21373-6) [facility] GLUCOSE (AUTOMATED)2022-06-08 00:49:10 Test Item Value Reference Range Interpretation Comments POCT GLU (test code = 1562954496) 191 mg/dL 70-110 H Lab Interpretation (test code = Abnormal 14415-1) [facility] GLUCOSE (AUTOMATED)2022-06-07 22:27:35 Test Item Value Reference Range Interpretation Comments POCT GLU (test code = 7686200619) 207 mg/dL 70-110 H Lab Interpretation (test code = Abnormal 47515-0) [facility] GLUCOSE (AUTOMATED)2022-06-07 17:00:27 Test Item Value Reference Range Interpretation Comments POCT GLU (test code = 2794109881) 189 mg/dL 70-110 H Lab Interpretation (test code = Abnormal 70887-1) [facility] GLUCOSE (AUTOMATED)2022-06-07 02:39:27 Test Item Value Reference Range Interpretation Comments POCT GLU (test code = 7569840918) 232 mg/dL 70-110 H Lab Interpretation (test code = Abnormal 39673-9) [facility] GLUCOSE (AUTOMATED)2022-06-07 02:39:22 Test Item Value Reference Range Interpretation Comments POCT GLU (test code = 7506460098) 265 mg/dL 70-110 H Lab Interpretation (test code = Abnormal 96025-7) [facility] GLUCOSE (AUTOMATED)2022-06-06 13:16:34 Test Item Value Reference Range Interpretation Comments POCT GLU (test code = 7160908364) 237 mg/dL 70-110 H Lab Interpretation (test code = Abnormal 40376-2) [facility] GLUCOSE (AUTOMATED)2022-06-06 13:02:26 Test Item Value Reference Range Interpretation Comments POCT GLU (test code = 7077474053) 189 mg/dL 70-110 H Lab Interpretation (test code = Abnormal 42565-2) [facility] Test Item Value Reference Range Interpretation Comments MAGNESIUM (test code = 5374792915) 2.1 mg/dL 1.7-2.4 Lab Interpretation (test code = Normal 34379-0) [facility] METABOLIC PANEL (NA, K, CL, CO2, GLUCOSE, BUN, CREATININE, CA)2022-06-06 11:41:58 Test Item Value Reference Range Interpretation Comments NA (test code = 140 mmol/L 135-145 6196360919) K (test code = 3.8 mmol/L 3.5-5 9235378053) CL (test code = 100 mmol/L 98-108 0597603426) CO2 TOTAL (test code = 31 mmol/L 23-31 3494774346) AGAP (test code = 2-16 7894883683) BUN (test code = 25 mg/dL 7-23 H 6819120619) GLUCOSE (test code = 109 mg/dL 70-110 7265933258) CREATININE (test code = 1.05 mg/dL 0.6-1.25 8096776772) CALCIUM (test code = 9.7 mg/dL 8.6-10.6 3785579961) eGFR (test code = mL/min/1.73m2 3358651610) ALYSSA (test code = ALYSSA) Association of [...] tests). Lab Interpretation Abnormal (test code = 74645-2) [facility] WITH [id number] 10:01:27 Test Item Value Reference Range Interpretation [...] RDW-SD (test code = 49.9 fL 38.5-51.6 32295-1) RDW-CV (test code = 14.1 % 12.1-15.4 788-0) PLT (test code = See_Comment [Automated 777-3) message] The sy stem which generated this result transmitted reference range : 150 - 328 10*3/ ?L. The reference r corey was not used to interpret this result as normal/abnormal . MPV (test code = 10.1 fL 9.8-13 69508-1) NRBC/100 WBC (test See_Comment [Automat ed code = 2307173578) message] The system which generated this result transmitted reference range : 0.0 - 10.0 /100 WBCs. The refer ence range was not u sed to interpret th is result as normal/abnormal . NRBC x10^3 (test code See_Comment [Auto mated = 7974817727) message] The s ystem which generated this result transmitted reference range : 10*3/?L. The reference range was not used to interpret this result as normal/abnormal . GRAN MAT (NEUT) % 66.3 % (test code = 770-8) IMM GRAN % (test code 0.40 % = 4444409945) LYMPH % (test code = 20.7 % 736-9) MONO % (test code = 8.4 % 5905-5) EOS % (test code = 3.5 % 713-8) BASO % (test code = 0.7 % 706-2) GRAN MAT x10^3(ANC) 5.08 10*3/uL 1.99-6.95 (test code = 0883302536) IMM GRAN x10^3 (test 0.03 10*3/uL 0-0.06 code = 7856679037) LYMPH x10^3 (test code 1.58 10*3/uL 1.09-3.23 = 731-0) MONO x10^3 (test code 0.64 10*3/uL 0.36-1.02 = 742-7) EOS x10^3 (test code = 0.27 10*3/uL 0.06-0.53 711-2) BASO x10^3 (test code 0.05 10*3/uL 0.01-0.09 = 704-7) Lab Interpretation Abnormal (test code = 12189-6) [facility] 01:58:35 Test Item Value Reference Range Interpretation Comments POCT GLU (test code = 3311747444) 119 mg/dL 70-110 H Lab Interpretation (test code = Abnormal 74356-7) [facility] (TTE)2022-06-05 18:49:03 Test Item Value Reference Range Interpretation Comments Height (test code = in 5525753716) Weight (test code = lbs 0091841171) Systolic BP (test code = mmHg 9273226183) Diastolic BP (test code mmHg = 9718640886) Heart Rate (test code = bpm 9586449564) BSA (test code = 1.73 m2 0948962920) LVIDD (test code = 5.60 cm 9362982400) IVS (test code = 0.83 cm 0481262292) Interventricular Septum 0.83 cm Diastolic Thickness by 2D (test code = 1961810) LVPWD (test code = 0.83 cm 0456978599) PW (test code = 0.83 cm 0.6-1.9 2095288799) EF(Teich) (test code = 14.30 % 1667124094) LVIDS (test code = 5.20 cm 8751197434) FS (test code = 7 % 9431305550) EF - 2D (test code = 14.30 % 56369974) Radiology Study observation (narrative) (test code = 76961-5) ALYSSA (test code = ALYSSA) Formatting of [...] mL of Lumason ultrasound enhancing agent used. [facility]2022-[facility]-05 17:20:01 Test Item Value Reference Range Interpretation Comments POCT GLU (test code = 2281266103) 177 mg/dL 70-110 H Lab Interpretation (test code = Abnormal 86037-6) [facility] Station[facility] [id number] 14:30:25 Test Item Value Reference Range Interpretation Comments NT-proBNP (test code 3520 pg/mL See_Comment H [Autom ated = 1970031318) message] The system which generated this result transmitted reference range : <=450. The reference range was not used to interpret this result as normal/abnormal . ALYSSA (test code = ALYSSA) Biotin has been reported to cause a negative bias, interpret results relative to patient's use of biotin. Lab Interpretation Abnormal (test code = 21483-0) [facility] GLUCOSE (AUTOMATED)2022-06-05 13:06:52 Test Item Value Reference Range Interpretation Comments POCT GLU (test code = 0723042301) 196 mg/dL 70-110 H Lab Interpretation (test code = Abnormal 41007-2) [facility] GLUCOSE (AUTOMATED)2022-06-05 01:19:44 Test Item Value Reference Range Interpretation Comments POCT GLU (test code = 3022399780) 160 mg/dL 70-110 H Lab Interpretation (test code = Abnormal 73182-5) [facility] GLUCOSE (AUTOMATED)2022-06-04 21:53:21 Test Item Value Reference Range Interpretation Comments POCT GLU (test code = 7172163384) 179 mg/dL 70-110 H Lab Interpretation (test code = Abnormal 39672-5) [facility] GLUCOSE (AUTOMATED)2022-06-04 17:18:37 Test Item Value Reference Range Interpretation Comments POCT GLU (test code = 3360143583) 208 mg/dL 70-110 H Lab Interpretation (test code = Abnormal 72585-3) [id number] 16:08[facility]53 Test Item Value Reference Interpretation Comments Range TROPONIN I (test 0.061 ng/mL See_Comment H [Automated code = 6484967040) message] The system which generated this result [...] biotin. Lab Interpretation Abnormal (test code = 69165-7) [facility] METABOLIC PANEL (NA, K, CL, CO2, GLUCOSE, BUN, CREATININE, CA)2022-06-04 15:57:07 Test Item Value Reference Range Interpretation Comments NA (test code = 139 mmol/L 135-145 6648582461) K (test code = 3.6 mmol/L 3.5-5 0303018803) CL (test code = 100 mmol/L 98-108 5474115501) CO2 TOTAL (test code = 30 mmol/L 23-31 6663501947) AGAP (test code = 2-16 4955159763) BUN (test code = 27 mg/dL 7-23 H 3017688681) GLUCOSE (test code = 159 mg/dL 70-110 H 1178299826) CREATININE (test code = 0.94 mg/dL 0.6-1.25 6101084148) CALCIUM (test code = 9.3 mg/dL 8.6-10.6 8443534356) eGFR (test code = mL/min/1.73m2 2735398292) ALYSSA (test code = ALYSSA) Association of [...] tests). Lab Interpretation Abnormal (test code = 92046-4) [facility] [id number] 15:25:43 Test Item Value Reference Interpretation Comments Range TROPONIN I (test 0.085 ng/mL See_Comment H [Automated code = 7621389683) message] The system which generated this result [...] biotin. Lab Interpretation Abnormal (test code = 45381-5) [facility]AUT[facility]2022-06-04 13:13:51 Test Item Value Reference Range Interpretation Comments POCT GLU (test code = 6603923341) 196 mg/dL 70-110 H Lab Interpretation (test code = Abnormal 20954-1) [facility] [id number] 03:16:42 Test Item Value Reference Interpretation Comments Range TROPONIN I (test 0.077 ng/mL See_Comment H [Automated code = 5003826655) message] The system which generated this result [...] biotin. Lab Interpretation Abnormal (test code = 06839-6) [facility]2022-06-03 23:26:30 Test Item Value Reference Range Interpretation Comments POCT GLU (test code = 1054565202) 185 mg/dL 70-110 H Lab Interpretation (test code = Abnormal 05775-0) [facility] StationType and Screen - ONCE [id number] 16:49:21 Test Item Value Reference Range Interpretation Comments ABO & RH (test code A Positive Performe d at [facility] = 20) Laboratory Serv [facility] [place], [place] [id number] Free: [phone] A No. [id number] IAT (test code = Negative Performed a t [facility] 1185) [facility] [place], [place] [id number] Free: [phone] A No. [id number] [facility] StationProthrombin Time / [id number] 16:10:07 Test Item Value Reference Range Interpretation Comments PROTIME PATIENT (test See_Comment [Auto mated message] code = 5964-2) The system [employer] generated this result transmitted ref erence range: 12.0 - 1 4.7 Seconds. The re ference range was not u sed to interpret this result as normal/abnor mal. INR (test code = 6301-6) Nor mal INR <1.1; Warfarin Therap eutic range 2.0 to 3. 0 or 2.5 to 3.5, dep ending upon the indica tions. Lab Interpretation (test Normal code = 44188-2) [facility] StationTROPONIN [id number] 15:31:19 Test Item Value Reference Interpretation Comments Range TROPONIN I (test 0.093 ng/mL See_Comment H [Automated code = 8225965491) message] The system which generated this result [...] biotin. Lab Interpretation Abnormal (test code = 04192-7) [facility] StationN-TERMINAL [id number] 15:28:02 Test Item Value Reference Range Interpretation Comments NT-proBNP (test code 9060 pg/mL See_Comment H [Autom ated = 2087410239) message] The system which generated this result transmitted reference range : <=450. The reference range was not used to interpret this result as normal/abnormal . ALYSSA (test code = ALYSSA) Biotin has been reported to cause a negative bias, interpret results relative to patient's use of biotin. Lab Interpretation Abnormal (test code = 89255-7) [facility] StationMAGNESIUM2022-07-19 15:20:38 Test Item Value Reference Range Interpretation Comments MAGNESIUM (test code = 7956494284) 1.8 mg/dL 1.7-2.4 Lab Interpretation (test code = Normal 24448-2) [facility] StationCOMP. METABOLIC PANEL (59474)2022-06-03 15:20:18 Test Item Value Reference Range Interpretation Comments NA (test code = 137 mmol/L 135-145 1984307891) K (test code = 3.7 mmol/L 3.5-5 3888873715) CL (test code = 99 mmol/L 98-108 0523182114) CO2 TOTAL (test code = 24 mmol/L 23-31 3103021143) AGAP (test code = 2-16 7762919557) BUN (test code = 31 mg/dL 7-23 H 5161175796) GLUCOSE (test code = 224 mg/dL 70-110 H 4015009043) CREATININE (test code = 1.30 mg/dL 0.6-1.25 H 3010827273) TOTAL BILI (test code = 1.4 mg/dL 0.1-1.1 H 5606080649) CALCIUM (test code = 9.2 mg/dL 8.6-10.6 0340471808) T PROTEIN (test code = 6.3 g/dL 6.3-8.2 6012651110) ALBUMIN (test code = 3.8 g/dL 3.5-5 4535417014) ALK PHOS (test code = 98 U/L 34-122 9100192317) ALTv (test code = 18 U/L 5-50 2-6) AST(SGOT) (test code = 30 U/L 13-40 4887601719) eGFR (test code = mL/min/1.73m2 9740736312) ALYSSA (test code = ALYSSA) Association of [...] tests). Lab Interpretation Abnormal (test code = 54058-1) [facility] StationLIPASE2022-07-19 15:20:18 Test Item Value Reference Range Interpretation Comments LIPASE (test code = 9921127954) 343 U/L 0-220 H Lab Interpretation (test code = Abnormal 13762-8) [facility] StationCB WITH [id number] 15:10:01 Test Item Value Reference Range Interpretation Comments WBC (test code = See_Comment [Automated 1390-2) message] The sy stem which generated this [...] RDW-SD (test code = 45.3 fL 38.5-51.6 04753-0) RDW-CV (test code = 13.5 % 12.1-15.4 788-0) PLT (test code = See_Comment [Automated 777-3) message] The sy stem which generated this result transmitted reference range : 150 - 328 10*3/ ?L. The reference r corey was not used to interpret this result as normal/abnormal . MPV (test code = 10.0 fL 9.8-13 49486-8) NRBC/100 WBC (test See_Comment [Automat ed code = 8056292663) message] The system which generated this result transmitted reference range : 0.0 - 10.0 /100 WBCs. The refer ence range was not u sed to interpret th is result as normal/abnormal . NRBC x10^3 (test code See_Comment [Auto mated = 4625367518) message] The s ystem which generated this result transmitted reference range : 10*3/?L. The reference range was not used to interpret this result as normal/abnormal . GRAN MAT (NEUT) % 77.8 % (test code = 770-8) IMM GRAN % (test code 0.50 % = 7813428577) LYMPH % (test code = 11.7 % 736-9) MONO % (test code = 9.4 % 5905-5) EOS % (test code = 0.2 % 713-8) BASO % (test code = 0.4 % 706-2) GRAN MAT x10^3(ANC) 6.30 10*3/uL 1.99-6.95 (test code = 1627240624) IMM GRAN x10^3 (test 0.04 10*3/uL 0-0.06 code = 0533040785) LYMPH x10^3 (test code 0.95 10*3/uL 1.09-3.23 L = 731-0) MONO x10^3 (test code 0.76 10*3/uL 0.36-1.02 = 742-7) EOS x10^3 (test code = 0.06-0.53 L 711-2) BASO x10^3 (test code 0.03 10*3/uL 0.01-0.09 = 704-7) Lab Interpretation Abnormal (test code = 85624-2) [facility] METABOLIC PANEL (NA, K, CL, CO2, GLUCOSE, BUN, CREATININE, CA)2022-05-31 11:07:06 Test Item Value Reference Range Interpretation Comments NA (test code = 133 mmol/L 135-145 L 9126437560) K (test code = 3.3 mmol/L 3.5-5 L 0371868316) CL (test code = 91 mmol/L 98-108 L 8490318565) CO2 TOTAL (test code = 33 mmol/L 23-31 H 9710942872) AGAP (test code = 2-16 2357924638) BUN (test code = 57 mg/dL 7-23 H 8967808011) GLUCOSE (test code = 285 mg/dL 70-110 H 9062742081) CREATININE (test code = 1.56 mg/dL 0.6-1.25 H 2044809982) CALCIUM (test code = 9.2 mg/dL 8.6-10.6 9395302021) eGFR (test code = mL/min/1.73m2 1142558374) ALYSSA (test code = ALYSSA) Association of [...] tests). Lab Interpretation Abnormal (test code = 60113-7) [facility] METABOLIC PANEL (NA, K, CL, CO2, GLUCOSE, BUN, CREATININE, CA)2022-05-30 09:08:14 Test Item Value Reference Range Interpretation Comments NA (test code = 132 mmol/L 135-145 L 4720575431) K (test code = 3.5 mmol/L 3.5-5 Slight 6035147793) hemolysis CL (test code = 90 mmol/L 98-108 L 5944692835) CO2 TOTAL (test code 33 mmol/L 23-31 H = 6191271180) AGAP (test code = 2-16 1225464141) BUN (test code = 37 mg/dL 7-23 H Slight 8340508837) hemolysis GLUCOSE (test code = 167 mg/dL 70-110 H 6126509994) CREATININE (test code 1.22 mg/dL 0.6-1.25 = 8452836918) CALCIUM (test code = 9.4 mg/dL 8.6-10.6 7140844516) eGFR (test code = mL/min/1.73m2 2005256180) ALYSSA (test code = ALYSSA) Association of [...] tests). Lab Interpretation Abnormal (test code = 41149-1) [facility] StationN-TERMINAL [id number] 10:06:48 Test Item Value Reference Range Interpretation Comments NT-proBNP (test code 2940 pg/mL See_Comment H [Autom ated = 5234720734) message] The system which generated this result transmitted reference range : <=450. The reference range was not used to interpret this result as normal/abnormal . ALYSSA (test code = ALYSSA) Biotin has been reported to cause a negative bias, interpret results relative to patient's use of biotin. Lab Interpretation Abnormal (test code = 34479-2) [facility] StationBAS[facility] METABOLIC PANEL (NA, K, CL, CO2, GLUCOSE, BUN, CREATININE, CA)2022-05-29 09:58:43 Test Item Value Reference Range Interpretation Comments NA (test code = 133 mmol/L 135-145 L 3372935593) K (test code = 3.5 mmol/L 3.5-5 9427254702) CL (test code = 93 mmol/L 98-108 L 9552560891) CO2 TOTAL (test code = 30 mmol/L 23-31 9630570455) AGAP (test code = 2-16 4036837446) BUN (test code = 31 mg/dL 7-23 H 7621098975) GLUCOSE (test code = 167 mg/dL 70-110 H 5311802543) CREATININE (test code = 1.24 mg/dL 0.6-1.25 2493196106) CALCIUM (test code = 9.4 mg/dL 8.6-10.6 1861699725) eGFR (test code = mL/min/1.73m2 6726046100) ALYSSA (test code = ALYSSA) Association of [...] tests). Lab Interpretation Abnormal (test code = 90132-1) [facility] WITH [id number] 08:08:05 Test Item Value Reference Range Interpretation [...] RDW-SD (test code = 47.3 fL 38.5-51.6 23647-9) RDW-CV (test code = 14.0 % 12.1-15.4 788-0) PLT (test code = See_Comment [Automated 777-3) message] The sy stem which generated this result transmitted reference range : 150 - 328 10*3/ ?L. The reference r corey was not used to interpret this result as normal/abnormal . MPV (test code = 9.6 fL 9.8-13 L 52807-7) NRBC/100 WBC (test See_Comment [Automat ed code = 5187927753) message] The system which generated this result transmitted reference range : 0.0 - 10.0 /100 WBCs. The refer ence range was not u sed to interpret th is result as normal/abnormal . NRBC x10^3 (test code See_Comment [Auto mated = 4857283929) message] The s ystem which generated this result transmitted reference range : 10*3/?L. The reference range was not used to interpret this result as normal/abnormal . GRAN MAT (NEUT) % 65.6 % (test code = 770-8) IMM GRAN % (test code 0.40 % = 7363709025) LYMPH % (test code = 20.0 % 736-9) MONO % (test code = 10.4 % 5905-5) EOS % (test code = 3.1 % 713-8) BASO % (test code = 0.5 % 706-2) GRAN MAT x10^3(ANC) 3.58 10*3/uL 1.99-6.95 (test code = 6732459466) IMM GRAN x10^3 (test 0-0.06 code = 8106257362) LYMPH x10^3 (test code 1.09 10*3/uL 1.09-3.23 = 731-0) MONO x10^3 (test code 0.57 10*3/uL 0.36-1.02 = 742-7) EOS x10^3 (test code = 0.17 10*3/uL 0.06-0.53 711-2) BASO x10^3 (test code 0.03 10*3/uL 0.01-0.09 = 704-7) Lab Interpretation Abnormal (test code = 39239-8) [facility]-TERMINAL [id number] 10:55:38 Test Item Value Reference Range Interpretation Comments NT-proBNP (test code 3040 pg/mL See_Comment H [Autom ated = 3883550339) message] The system which generated this result transmitted reference range : <=450. The reference range was not used to interpret this result as normal/abnormal . ALYSSA (test code = ALYSSA) Biotin has been reported to cause a negative bias, interpret results relative to patient's use of biotin. Lab Interpretation Abnormal (test code = 20264-6) [facility] METABOLIC PANEL (NA, K, CL, CO2, GLUCOSE, BUN, CREATININE, CA)2022-05-27 10:49:39 Test Item Value Reference Range Interpretation Comments NA (test code = 134 mmol/L 135-145 L 8629645683) K (test code = 4.1 mmol/L 3.5-5 9640447186) CL (test code = 96 mmol/L 98-108 L 9177584119) CO2 TOTAL (test code = 31 mmol/L 23-31 9250158776) AGAP (test code = 2-16 2513786722) BUN (test code = 28 mg/dL 7-23 H 3934895118) GLUCOSE (test code = 216 mg/dL 70-110 H 9748659819) CREATININE (test code = 1.07 mg/dL 0.6-1.25 3217269289) CALCIUM (test code = 8.8 mg/dL 8.6-10.6 2899152656) eGFR (test code = mL/min/1.73m2 1902132652) ALYSSA (test code = ALYSSA) Association of [...] tests). Lab Interpretation Abnormal (test code = 97469-8) [facility]an[facility] (TTE)2022-05-27 00:13:45 Test Item Value Reference Range Interpretation Comments Height (test code = in 6774912365) Weight (test code = lbs 8202702765) Systolic BP (test code = mmHg 2033024243) Diastolic BP (test code mmHg = 0173384153) Heart Rate (test code = bpm 9247135835) LVOT stroke volume (test 31.80 cm3 code = 9623047013) EF(Teich) (test code = 18.40 % 2666847869) LVIDD (test code = 6.30 cm 9042702904) LVIDS (test code = 5.80 cm 8852546205) IVS (test code = 0.75 cm 2650004714) LVPWD (test code = 0.94 cm 3775296471) LVOT diameter (test code 1.95 cm = 6719671984) FS (test code = 9 % 4641021705) MV Peak E Nestor (test code 121.4 cm/s = 4262581112) E wave decelartion time 0.09 s (test code = 0825860510) MV E/e' septal (test 5.0 cm/s code = 7304364213) LA Volume Index (BP) 42.0 mL/m2 (test code = 0484477805) LA volume (BP) (test 74.6 mL code = 0045485468) LVOT peak nestor (test code 79.9 cm/s = 0789076141) LVOT mn grad (test code mmHg = 0076071892) BSA (test code = 1.78 m2 8636352728) LA size (test code = 2.6 cm 3195049675) LAV(MOD-sp2) (test code 82.10 mL = 5856655183) LAV(MOD-sp4) (test code 60.20 mL = 8244684530) Tapse (test code = 2.08 cm 3681341750) AV LVOT peak gradient mmHg (test code = 4942161568) LVOT peak VTI (test code 10.6 cm = 2859063728) LV V1 mean (test code = 48.50 cm/s 6565399722) MV Prop V (test code = 44.70 cm/s 2151717029) Ao root annulus (test 3.5 cm code = 8048509356) Ao root diam (test code 3.50 cm = 5975195219) Aortic root (test code = 3.5 cm 3005465458) PW (test code = 0.94 cm 0.6-1.1 4277203262) EF - 2D (test code = 18.40 % 83693145) Interventricular Septum 0.75 cm Diastolic Thickness by 2D (test code = 6519116) MV Peak A Nestor (test code 26.3 cm/s = 5211344476) E/A ratio (test code = ratio 4608163834) Aortic valve mean 113.4 cm/s velocity (test code = 7863013594) Ao peak nestor (test code = 150.5 cm/s 5348148864) Ao VTI (test code = 21.6 cm 9949034309) AV area by cont VTI 1.5 cm2 (test code = 8382376532) AV area peak nestor (test 1.6 cm2 code = 7218919546) Ao max PG (test code = 9.10 mm[Hg] 0979459249) AV peak gradient (test mmHg code = 6821437570) AV valve area (test code 1.48 cm2 = 2605043849) AV mean gradient (test mmHg code = 5510880680) Radiology Study observation (narrative) (test code = 82399-7) ALYSSA (test code = ALYSSA) Formatting of [...] mL of Lumason ultrasound enhancing agent used. [facility]D-[id number] 20:13:11 Test Item Value Reference Interpretation Comments Range D-DIMER (test code = See_Comment H [Autom ated 2817006606) message] The system which generated this result [...] diagnosis. Lab Interpretation Abnormal (test code = 86328-0) [facility]TR[facility]ITALNIN [id number] 14:26:05 Test Item Value Reference Interpretation Comments Range TROPONIN I (test 0.069 ng/mL See_Comment H [Automated code = 8835418059) message] The system which generated this result [...] biotin. Lab Interpretation Abnormal (test code = 35611-2) [facility] StationBAS[facility] METABOLIC PANEL (NA, K, CL, CO2, GLUCOSE, BUN, CREATININE, CA)2022-05-25 14:14:22 Test Item Value Reference Range Interpretation Comments NA (test code = 136 mmol/L 135-145 8824522655) K (test code = 3.8 mmol/L 3.5-5 6810690306) CL (test code = 102 mmol/L 98-108 2553867719) CO2 TOTAL (test code 26 mmol/L 23-31 = 4574515202) AGAP (test code = 2-16 0286360959) BUN (test code = 19 mg/dL 7-23 6755462765) GLUCOSE (test code = 94 mg/dL 70-110 0915588203) CREATININE (test code 0.97 mg/dL 0.6-1.25 = 5423161395) CALCIUM (test code = 8.8 mg/dL 8.6-10.6 8757415098) eGFR (test code = mL/min/1.73m2 0444907668) ALYSSA (test code = ALYSSA) Association of [...] or urine or abnormalities in imaging tests). [facility] StationN-TERMINAL [id number] 18:14:14 Test Item Value Reference Range Interpretation Comments NT-proBNP (test code 7300 pg/mL See_Comment H [Autom ated = 6411939676) message] The system which generated this result transmitted reference range : <=450. The reference range was not used to interpret this result as normal/abnormal . ALYSSA (test code = ALYSSA) Biotin has been reported to cause a negative bias, interpret results relative to patient's use of biotin. Lab Interpretation Abnormal (test code = 02052-2) [facility] StationPO[facility] GLUCOSE (AUTOMATED)2022-05-24 16:04:15 Test Item Value Reference Range Interpretation Comments POCT GLU (test code = 1487470824) 107 mg/dL 70-110 Lab Interpretation (test code = Normal 55551-8) [facility]24 05:16:06 Test Item Value Reference Range Interpretation Comments NA (test code = 134 mmol/L 135-145 L 2186516278) K (test code = 3.8 mmol/L 3.5-5 3710458108) CL (test code = 100 mmol/L 98-108 1305631214) CO2 TOTAL (test code = 23 mmol/L 23-31 8224379528) AGAP (test code = 2-16 2096402444) BUN (test code = 18 mg/dL 7-23 7770771059) GLUCOSE (test code = 179 mg/dL 70-110 H 1630332654) CREATININE (test code = 1.07 mg/dL 0.6-1.25 3340298674) TOTAL BILI (test code = 1.4 mg/dL 0.1-1.1 H 4179635082) CALCIUM (test code = 9.1 mg/dL 8.6-10.6 9983515435) T PROTEIN (test code = 6.0 g/dL 6.3-8.2 L 8728621165) ALBUMIN (test code = 3.6 g/dL 3.5-5 4114738858) ALK PHOS (test code = 98 U/L 34-122 5767972901) ALTv (test code = 14 U/L 5-50 1742-6) AST(SGOT) (test code = 23 U/L 13-40 1367598489) eGFR (test code = mL/min/1.73m2 5147793637) ALYSSA (test code = ALYSSA) Association of [...] tests). Lab Interpretation Abnormal (test code = 90037-9) [facility] [id number] 04:57:41 Test Item Value Reference Interpretation Comments Range TROPONIN I (test 0.086 ng/mL See_Comment H [Automated code = 7452237651) message] The system which generated this result [...] biotin. Lab Interpretation Abnormal (test code = 77355-6) [facility] WITH [id number] 04:40:23 Test Item Value Reference Range Interpretation [...] RDW-SD (test code = 48.0 fL 38.5-51.6 95205-9) RDW-CV (test code = 14.1 % 12.1-15.4 788-0) PLT (test code = See_Comment [Automated 777-3) message] The sy stem which generated this result transmitted reference range : 150 - 328 10*3/ ?L. The reference r corey was not used to interpret this result as normal/abnormal . MPV (test code = 9.8 fL 9.8-13 70620-6) NRBC/100 WBC (test See_Comment [Automat ed code = 9789800263) message] The system which generated this result transmitted reference range : 0.0 - 10.0 /100 WBCs. The refer ence range was not u sed to interpret th is result as normal/abnormal . NRBC x10^3 (test code See_Comment [Auto mated = 6508757908) message] The s ystem which generated this result transmitted reference range : 10*3/?L. The reference range was not used to interpret this result as normal/abnormal . GRAN MAT (NEUT) % 77.1 % (test code = 770-8) IMM GRAN % (test code 0.30 % = 2433133339) LYMPH % (test code = 11.4 % 736-9) MONO % (test code = 9.5 % 5905-5) EOS % (test code = 1.4 % 713-8) BASO % (test code = 0.3 % 706-2) GRAN MAT x10^3(ANC) 5.06 10*3/uL 1.99-6.95 (test code = 0388450244) IMM GRAN x10^3 (test 0-0.06 code = 7062306472) LYMPH x10^3 (test code 0.75 10*3/uL 1.09-3.23 L = 731-0) MONO x10^3 (test code 0.62 10*3/uL 0.36-1.02 = 742-7) EOS x10^3 (test code = 0.09 10*3/uL 0.06-0.53 711-2) BASO x10^3 (test code 0.01-0.09 = 704-7) Lab Interpretation Abnormal (test code = 18746-1) [facility] StationCHEM [id number] 09:38:00 Test Item Value Reference Range Interpretation Comments Potassium Lvl (test code = Potassium 3.8 3.5-5.1 Lvl) [facility]2022-04-25 09:38:00 Test Item Value Reference Range Interpretation Comments Chloride Lvl (test code = Chloride Lvl) 98 95-109 [facility]2022-04-25 09:38:00 Test Item Value Reference Range Interpretation Comments CO2 (test code = CO2) 25 24-32 [facility]2022-04-25 09:38:00 Test Item Value Reference Range Interpretation Comments AGAP (test code = AGAP) 13.8 10.0-20.0 [facility]2022-04-25 09:38:00 Test Item Value Reference Range Interpretation Comments Calcium Lvl (test code = Calcium Lvl) 9.9 8.5-10.5 [facility]2022-04-25 09:38:00 Test Item Value Reference Range Interpretation Comments eGFR (test code = eGFR) 59 [facility] [id number] 09:38:00 Test Item Value Reference Range Interpretation Comments Phosphorus (test code = Phosphorus) 4.3 2.5-4.5 [facility] [id number] 09:38:00 Test Item Value Reference Range Interpretation Comments Magnesium Lvl (test code = Magnesium 2.4 1.8-2.4 Lvl) [place] [address]-04-25 09:38:00 Test Item Value Reference Range Interpretation Comments WBC (test code = WBC) 5.1 3.7-10.4 [place] [address]-04-25 09:38:00 Test Item Value Reference Range Interpretation Comments RBC (test code = RBC) 4.61 4.70-6.10 [place] [address]-04-25 09:38:00 Test Item Value Reference Range Interpretation Comments Hgb (test code = Hgb) 14.9 14.0-18.0 [place] [address]-04-25 09:38:00 Test Item Value Reference Range Interpretation Comments Hct (test code = Hct) 43.0 42.0-54.0 [place] [address]-04-25 09:38:00 Test Item Value Reference Range Interpretation Comments MCV (test code = MCV) 93.3 80.0-94.0 [place] [address]-04-25 09:38:00 Test Item Value Reference Range Interpretation Comments MCH (test code = MCH) 32.3 pg 27.0-31.0 [place] [address]-04-25 09:38:00 Test Item Value Reference Range Interpretation Comments MCHC (test code = MCHC) 34.6 32.0-36.0 [place] [address]-04-25 09:38:00 Test Item Value Reference Range Interpretation Comments RDW (test code = RDW) 13.8 11.5-14.5 [place] 956782-04-25 09:38:00 Test Item Value Reference Range Interpretation Comments Platelet (test code = Platelet) 210 133-450 [place] 956782-04-25 09:38:00 Test Item Value Reference Range Interpretation Comments MPV (test code = MPV) 8.2 7.4-10.4 [place] [address]-04-25 09:38:00 Test Item Value Reference Range Interpretation Comments Segs (test code = Segs) 50.3 45.0-75.0 [place] [address]-04-25 09:38:00 Test Item Value Reference Range Interpretation Comments Lymphocytes (test code = Lymphocytes) 32.2 20.0-40.0 [place] [address]-04-25 09:38:00 Test Item Value Reference Range Interpretation Comments Monocytes (test code = Monocytes) 13.4 2.0-12.0 [place] [address]-04-25 09:38:00 Test Item Value Reference Range Interpretation Comments Eosinophils (test code = 3.0 See_Comment [A utomated message] The Eosinophils) system which ge nerated this result tra nsmitted reference range : <=4.0. The reference r corey was not used to int erpret this result as normal/abnormal . [place] [address]-04-25 09:38:00 Test Item Value Reference Range Interpretation Comments Basophils (test code = 1.1 See_Comment [Aut omated message] The Basophils) system which ge nerated this result tra nsmitted reference range : <=1.0. The reference r corey was not used to int erpret this result as normal/abnormal . [place] [address]-04-25 09:38:00 Test Item Value Reference Range Interpretation Comments Neutrophils # (test code = Neutrophils 2.5 1.5-8.1 #) [place] 956782-04-25 09:38:00 Test Item Value Reference Range Interpretation Comments Lymphocytes # (test code = Lymphocytes 1.6 1.0-5.5 #) [place] [address]-04-25 09:38:00 Test Item Value Reference Range Interpretation Comments Monocytes # (test code 0.7 See_Comment [Aut omated message] The = Monocytes #) system which generated this result tra nsmitted reference range : <=0.8. The reference r corey was not used to int erpret this result as normal/abnormal . [place] [address]-04-25 09:38:00 Test Item Value Reference Range Interpretation Comments Eosinophils # (test code 0.2 See_Comment [A utomated message] The = Eosinophils #) system whic h generated this result tra nsmitted reference range : <=0.5. The reference r corey was not used to int erpret this result as normal/abnormal . [facility]UksvaquDSPCZJGNLW9600-69-52 09:38:00 Test Item Value Reference Range Interpretation Comments Basophils # (test code 0.1 See_Comment [Aut omated message] The = Basophils #) system which generated this result tra nsmitted reference range : <=0.2. The reference r croey was not used to int erpret this result as normal/abnormal . [facility]2022-04-25 09:38:00 Test Item Value Reference Range Interpretation Comments Ca Ion WB (test code = Ca Ion WB) 1.17 1.05-1.25 [place] 230082-04-25 09:38:00 Test Item Value Reference Range Interpretation Comments Ca Ion at pH 7.4 WB (test code = Ca Ion 1.12 1.05-1.25 at pH 7.4 WB) [facility] [id number] 09:38:00 Test Item Value Reference Range Interpretation Comments Chloride Lvl (test code = Chloride Lvl) 98 95-109 [facility] [id number] 09:38:00 Test Item Value Reference Range Interpretation Comments CO2 (test code = CO2) 25 24-32 [facility] [id number] 09:38:00 Test Item Value Reference Range Interpretation Comments AGAP (test code = AGAP) 13.8 10.0-20.0 [facility] [id number] 09:38:00 Test Item Value Reference Range Interpretation Comments Calcium Lvl (test code = Calcium Lvl) 9.9 8.5-10.5 [facility] [id number] 09:38:00 Test Item Value Reference Range Interpretation Comments eGFR (test code = eGFR) 59 [facility] [id number] 09:38:00 Test Item Value Reference Range Interpretation Comments Phosphorus (test code = Phosphorus) 4.3 2.5-4.5 [facility] [id number] 09:38:00 Test Item Value Reference Range Interpretation Comments Magnesium Lvl (test code = Magnesium 2.4 1.8-2.4 Lvl) [place] 956782-04-25 09:38:00 Test Item Value Reference Range Interpretation Comments WBC (test code = WBC) 5.1 3.7-10.4 [place] [address]-04-25 09:38:00 Test Item Value Reference Range Interpretation Comments RBC (test code = RBC) 4.61 4.70-6.10 [place] 956782-04-25 09:38:00 Test Item Value Reference Range Interpretation Comments Hgb (test code = Hgb) 14.9 14.0-18.0 [place] [address]-04-25 09:38:00 Test Item Value Reference Range Interpretation Comments Hct (test code = Hct) 43.0 42.0-54.0 [place] [address]-04-25 09:38:00 Test Item Value Reference Range Interpretation Comments MCV (test code = MCV) 93.3 80.0-94.0 [place] [address]-04-25 09:38:00 Test Item Value Reference Range Interpretation Comments MCH (test code = MCH) 32.3 pg 27.0-31.0 [place] [address]-04-25 09:38:00 Test Item Value Reference Range Interpretation Comments MCHC (test code = MCHC) 34.6 32.0-36.0 [place] [address]-04-25 09:38:00 Test Item Value Reference Range Interpretation Comments RDW (test code = RDW) 13.8 11.5-14.5 [place] [address]-04-25 09:38:00 Test Item Value Reference Range Interpretation Comments Platelet (test code = Platelet) 210 133-450 [place] 956782-04-25 09:38:00 Test Item Value Reference Range Interpretation Comments MPV (test code = MPV) 8.2 7.4-10.4 [place] [address]-04-25 09:38:00 Test Item Value Reference Range Interpretation Comments Segs (test code = Segs) 50.3 45.0-75.0 [place] [address]-04-25 09:38:00 Test Item Value Reference Range Interpretation Comments Lymphocytes (test code = Lymphocytes) 32.2 20.0-40.0 [place] [address]-04-25 09:38:00 Test Item Value Reference Range Interpretation Comments Monocytes (test code = Monocytes) 13.4 2.0-12.0 [address]04-25 09:38:00 Test Item Value Reference Range Interpretation Comments Eosinophils (test code = 3.0 See_Comment [A utomated message] The Eosinophils) system which ge nerated this result tra nsmitted reference range : <=4.0. The reference r corey was not used to int erpret this result as normal/abnormal . [place] [address]-04-25 09:38:00 Test Item Value Reference Range Interpretation Comments Basophils (test code = 1.1 See_Comment [Aut omated message] The Basophils) system which ge nerated this result tra nsmitted reference range : <=1.0. The reference r corey was not used to int erpret this result as normal/abnormal . [address]04-25 09:38:00 Test Item Value Reference Range Interpretation Comments Neutrophils # (test code = Neutrophils 2.5 1.5-8.1 #) [place] [address]-04-25 09:38:00 Test Item Value Reference Range Interpretation Comments Lymphocytes # (test code = Lymphocytes 1.6 1.0-5.5 #) [place] [address]-04-25 09:38:00 Test Item Value Reference Range Interpretation Comments Monocytes # (test code 0.7 See_Comment [Aut omated message] The = Monocytes #) system which generated this result tra nsmitted reference range : <=0.8. The reference r corey was not used to int erpret this result as normal/abnormal . [place] [address]-04-25 09:38:00 Test Item Value Reference Range Interpretation Comments Eosinophils # (test code 0.2 See_Comment [A utomated message] The = Eosinophils #) system whic h generated this result tra nsmitted reference range : <=0.5. The reference r corey was not used to int erpret this result as normal/abnormal . [place] [address]-04-25 09:38:00 Test Item Value Reference Range Interpretation Comments Basophils # (test code 0.1 See_Comment [Aut omated message] The = Basophils #) system which generated this result tra nsmitted reference range : <=0.2. The reference r corey was not used to int erpret this result as normal/abnormal . [facility]2022-04-25 09:38:00 Test Item Value Reference Range Interpretation Comments Ca Ion WB (test code = Ca Ion WB) 1.17 1.05-1.25 [facility] [id number] 09:38:00 Test Item Value Reference Range Interpretation Comments Ca Ion at pH 7.4 WB (test code = Ca Ion 1.12 1.05-1.25 at pH 7.4 WB) [facility]2022-04-25 09:38:00 Test Item Value Reference Range Interpretation Comments Glucose Lvl (test code = Glucose Lvl) 198 [facility]2022-04-25 09:38:00 Test Item Value Reference Range Interpretation Comments BUN (test code = BUN) 06-06 [facility]2022-04-25 09:38:00 Test Item Value Reference Range Interpretation Comments Creatinine Lvl (test code = Creatinine 1.15 0.50-1.40 Lvl) [facility]2022-04-25 09:38:00 Test Item Value Reference Range Interpretation Comments Sodium Lvl (test code = Sodium Lvl) 133 135-145 [facility]2022-04-25 09:38:00 Test Item Value Reference Range Interpretation Comments Potassium Lvl (test code = Potassium 3.8 3.5-5.1 Lvl) [facility]2022-04-25 09:38:00 Test Item Value Reference Range Interpretation Comments Glucose Lvl (test code = Glucose Lvl) 198 [facility]2022-04-25 09:38:00 Test Item Value Reference Range Interpretation Comments BUN (test code = BUN) 06-06 [place] 695802-04-25 09:38:00 Test Item Value Reference Range Interpretation Comments Creatinine Lvl (test code = Creatinine 1.15 0.50-1.40 Lvl) [facility]2022-04-25 09:38:00 Test Item Value Reference Range Interpretation Comments Sodium Lvl (test code = Sodium Lvl) 133 135-145 [place] 695802-04-24 10:17:00 Test Item Value Reference Range Interpretation Comments Phosphorus (test code = Phosphorus) 4.0 2.5-4.5 [facility]2022-04-24 10:17:00 Test Item Value Reference Range Interpretation Comments Magnesium Lvl (test code = Magnesium 2.2 1.8-2.4 Lvl) [facility]2022-04-24 10:17:00 Test Item Value Reference Range Interpretation Comments Glucose Lvl (test code = Glucose Lvl) 134 70-99 [place] 695802-04-24 10:17:00 Test Item Value Reference Range Interpretation Comments BUN (test code = BUN) 35 7-22 [place] 695802-04-24 10:17:00 Test Item Value Reference Range Interpretation Comments Creatinine Lvl (test code = Creatinine 1.06 0.50-1.40 Lvl) [facility]2022-04-24 10:17:00 Test Item Value Reference Range Interpretation Comments Sodium Lvl (test code = Sodium Lvl) 134 135-145 [place] 695802-04-24 10:17:00 Test Item Value Reference Range Interpretation Comments Potassium Lvl (test code = Potassium 4.1 3.5-5.1 Lvl) [facility]2022-04-24 10:17:00 Test Item Value Reference Range Interpretation Comments Chloride Lvl (test code = Chloride Lvl) 99 95-109 [facility]2022-04-24 10:17:00 Test Item Value Reference Range Interpretation Comments CO2 (test code = CO2) 26 24-32 [facility]2022-04-24 10:17:00 Test Item Value Reference Range Interpretation Comments Calcium Lvl (test code = Calcium Lvl) 9.3 8.5-10.5 [facility]2022-04-24 10:17:00 Test Item Value Reference Range Interpretation Comments AGAP (test code = AGAP) 13.1 10.0-20.0 [place] 695802-04-24 10:17:00 Test Item Value Reference Range Interpretation Comments eGFR (test code = eGFR) 65 [facility]cosRxejkmwSKKJKMHMJH6801-41-67 10:17:00 Test Item Value Reference Range Interpretation Comments WBC (test code = WBC) 5.6 3.7-10.4 [place] 956782-04-24 10:17:00 Test Item Value Reference Range Interpretation Comments RBC (test code = RBC) 4.33 4.70-6.10 [facility]cosHotvdtcNPQXJUTZOO3407-02-62 10:17:00 Test Item Value Reference Range Interpretation Comments Hgb (test code = Hgb) 13.7 14.0-18.0 [place] 956782-04-24 10:17:00 Test Item Value Reference Range Interpretation Comments Hct (test code = Hct) 40.0 42.0-54.0 [facility]cosShcczanGGVEIFRMRS5234-89-18 10:17:00 Test Item Value Reference Range Interpretation Comments MCV (test code = MCV) 92.4 80.0-94.0 [facility]cosTanqhkvIZWTIJIWAI7445-20-46 10:17:00 Test Item Value Reference Range Interpretation Comments MCH (test code = MCH) 31.5 pg 27.0-31.0 [facility] MarcosDuijqsfGIABWXVKSG9818-85-10 10:17:00 Test Item Value Reference Range Interpretation Comments MCHC (test code = MCHC) 34.1 32.0-36.0 [facility] MarcosQkcyxtrBWKEDZIWQL5296-24-46 10:17:00 Test Item Value Reference Range Interpretation Comments RDW (test code = RDW) 13.6 11.5-14.5 [facility] MarcosRsawzajDMBSZTCXLJ4487-41-12 10:17:00 Test Item Value Reference Range Interpretation Comments Platelet (test code = Platelet) 191 133-450 [facility] MarcosRiifndgUQNWJTPMOA0500-33-05 10:17:00 Test Item Value Reference Range Interpretation Comments MPV (test code = MPV) 8.1 7.4-10.4 [place] 956782-04-24 10:17:00 Test Item Value Reference Range Interpretation Comments Segs (test code = Segs) 57.4 45.0-75.0 [place] 956782-04-24 10:17:00 Test Item Value Reference Range Interpretation Comments Lymphocytes (test code = Lymphocytes) 26.6 20.0-40.0 [place] [address]-04-24 10:17:00 Test Item Value Reference Range Interpretation Comments Monocytes (test code = Monocytes) 11.7 2.0-12.0 [place] 956782-04-24 10:17:00 Test Item Value Reference Range Interpretation Comments Eosinophils (test code = 3.5 See_Comment [A utomated message] The Eosinophils) system which ge nerated this result tra nsmitted reference range : <=4.0. The reference r corey was not used to int erpret this result as normal/abnormal . [facility] MarcosGwkasbtYDGDRGOZCI3482-52-95 10:17:00 Test Item Value Reference Range Interpretation Comments Basophils (test code = 0.8 See_Comment [Aut omated message] The Basophils) system which ge nerated this result tra nsmitted reference range : <=1.0. The reference r corey was not used to int erpret this result as normal/abnormal . [facility] MarcosQdhdsrtXQAJYYMDER3927-40-98 10:17:00 Test Item Value Reference Range Interpretation Comments Neutrophils # (test code = Neutrophils 3.2 1.5-8.1 #) [facility] MarcosZngqbxfNLROXOTXBF7289-88-63 10:17:00 Test Item Value Reference Range Interpretation Comments Lymphocytes # (test code = Lymphocytes 1.5 1.0-5.5 #) [facility] MarcosLvvoffhCNKJIZBAPN8592-43-16 10:17:00 Test Item Value Reference Range Interpretation Comments Monocytes # (test code 0.7 See_Comment [Aut omated message] The = Monocytes #) system which generated this result tra nsmitted reference range : <=0.8. The reference r corey was not used to int erpret this result as normal/abnormal . [facility] MarcosJhyzkzsGNTSACCVJA7986-92-11 10:17:00 Test Item Value Reference Range Interpretation Comments Eosinophils # (test code 0.2 See_Comment [A utomated message] The = Eosinophils #) system whic h generated this result tra nsmitted reference range : <=0.5. The reference r corey was not used to int erpret this result as normal/abnormal . [facility]PARATHYROID ZFEIQQG8963-49-97 10:17:00 Test Item Value Reference Range Interpretation Comments Ca Ion WB (test code = Ca Ion WB) 1.19 1.05-1.25 [facility]ATH[facility] KNGKQDI3409-53-17 10:17:00 Test Item Value Reference Range Interpretation Comments Ca Ion at pH 7.4 WB (test code = Ca Ion 1.19 1.05-1.25 at pH 7.4 WB) [facility]CHE[facility] [id number] 10:17:00 Test Item Value Reference Range Interpretation Comments Phosphorus (test code = Phosphorus) 4.0 2.5-4.5 [facility]2022-04-24 10:17:00 Test Item Value Reference Range Interpretation Comments Magnesium Lvl (test code = Magnesium 2.2 1.8-2.4 Lvl) [place] 695802-04-24 10:17:00 Test Item Value Reference Range Interpretation Comments Glucose Lvl (test code = Glucose Lvl) 134 70-99 [place] 695802-04-24 10:17:00 Test Item Value Reference Range Interpretation Comments BUN (test code = BUN) 35 7-22 [place] 695802-04-24 10:17:00 Test Item Value Reference Range Interpretation Comments Creatinine Lvl (test code = Creatinine 1.06 0.50-1.40 Lvl) [facility]2022-04-24 10:17:00 Test Item Value Reference Range Interpretation Comments Sodium Lvl (test code = Sodium Lvl) 134 135-145 [place] 695802-04-24 10:17:00 Test Item Value Reference Range Interpretation Comments Potassium Lvl (test code = Potassium 4.1 3.5-5.1 Lvl) [facility]2022-04-24 10:17:00 Test Item Value Reference Range Interpretation Comments Chloride Lvl (test code = Chloride Lvl) 99 95-109 [facility]2022-04-24 10:17:00 Test Item Value Reference Range Interpretation Comments CO2 (test code = CO2) 26 24-32 [place] 695802-04-24 10:17:00 Test Item Value Reference Range Interpretation Comments Calcium Lvl (test code = Calcium Lvl) 9.3 8.5-10.5 [place] 695802-04-24 10:17:00 Test Item Value Reference Range Interpretation Comments AGAP (test code = AGAP) 13.1 10.0-20.0 [place] 695802-04-24 10:17:00 Test Item Value Reference Range Interpretation Comments eGFR (test code = eGFR) 65 [facility]cosPksdexpEFBDRKAOYT8342-48-56 10:17:00 Test Item Value Reference Range Interpretation Comments WBC (test code = WBC) 5.6 3.7-10.4 [place] 956782-04-24 10:17:00 Test Item Value Reference Range Interpretation Comments RBC (test code = RBC) 4.33 4.70-6.10 [facility]cosZwfmjukBMNCICPRMG2644-88-54 10:17:00 Test Item Value Reference Range Interpretation Comments Hgb (test code = Hgb) 13.7 14.0-18.0 [facility] MarcosUoigbebIZMNBKVKOB6210-81-03 10:17:00 Test Item Value Reference Range Interpretation Comments Hct (test code = Hct) 40.0 42.0-54.0 [facility] MarcosBmhfovlUVJTIUWOOJ4221-12-90 10:17:00 Test Item Value Reference Range Interpretation Comments MCV (test code = MCV) 92.4 80.0-94.0 [facility] MarcosXfskncaTTVLFFIGKT4387-96-76 10:17:00 Test Item Value Reference Range Interpretation Comments MCH (test code = MCH) 31.5 pg 27.0-31.0 [facility] MarcosSlumnktFZFJFFLSPJ1723-71-57 10:17:00 Test Item Value Reference Range Interpretation Comments MCHC (test code = MCHC) 34.1 32.0-36.0 [facility] MarcosOothfslFGVJQFSERM1527-40-52 10:17:00 Test Item Value Reference Range Interpretation Comments RDW (test code = RDW) 13.6 11.5-14.5 [facility] MarcosHyhwzyoFRSQLNXLTP1609-64-04 10:17:00 Test Item Value Reference Range Interpretation Comments Platelet (test code = Platelet) 191 133-450 [facility] MarcosWbnqelwKCXWWFKEPQ4552-48-17 10:17:00 Test Item Value Reference Range Interpretation Comments MPV (test code = MPV) 8.1 7.4-10.4 [facility]cosEqtycjdPKVPWIXKOV9145-64-65 10:17:00 Test Item Value Reference Range Interpretation Comments Segs (test code = Segs) 57.4 45.0-75.0 [place] 956782-04-24 10:17:00 Test Item Value Reference Range Interpretation Comments Lymphocytes (test code = Lymphocytes) 26.6 20.0-40.0 [facility] MarcosTltzejcOQVZSDWTZC1129-25-00 10:17:00 Test Item Value Reference Range Interpretation Comments Monocytes (test code = Monocytes) 11.7 2.0-12.0 [place] 956782-04-24 10:17:00 Test Item Value Reference Range Interpretation Comments Eosinophils (test code = 3.5 See_Comment [A utomated message] The Eosinophils) system which ge nerated this result tra nsmitted reference range : <=4.0. The reference r corey was not used to int erpret this result as normal/abnormal . [facility]cosIhkhxxbNPFZSPAMNS0877-29-74 10:17:00 Test Item Value Reference Range Interpretation Comments Basophils (test code = 0.8 See_Comment [Aut omated message] The Basophils) system which ge nerated this result tra nsmitted reference range : <=1.0. The reference r corey was not used to int erpret this result as normal/abnormal . [facility]cosEdmvdqxNGXDTGVIEH6599-58-32 10:17:00 Test Item Value Reference Range Interpretation Comments Neutrophils # (test code = Neutrophils 3.2 1.5-8.1 #) [facility] MarcosRevmelmIQRWXMLXRZ2868-83-18 10:17:00 Test Item Value Reference Range Interpretation Comments Lymphocytes # (test code = Lymphocytes 1.5 1.0-5.5 #) [facility] MarcosTydtthdLOKQJAOPRJ4089-92-30 10:17:00 Test Item Value Reference Range Interpretation Comments Monocytes # (test code 0.7 See_Comment [Aut omated message] The = Monocytes #) system which generated this result tra nsmitted reference range : <=0.8. The reference r corey was not used to int erpret this result as normal/abnormal . [facility] MarcosIhzcynuFHVDUIQLBV9162-85-34 10:17:00 Test Item Value Reference Range Interpretation Comments Eosinophils # (test code 0.2 See_Comment [A utomated message] The = Eosinophils #) system [facility] h generated this result tra nsmitted reference range : <=0.5. The reference r corey was not used to int erpret this result as normal/abnormal . [facility] HospitalPARATHYROID [id number] 10:17:00 Test Item Value Reference Range Interpretation Comments Ca Ion WB (test code = Ca Ion WB) 1.19 1.05-1.25 [facility]ATH[facility] [id number] 10:17:00 Test Item Value Reference Range Interpretation Comments Ca Ion at pH 7.4 WB (test code = Ca Ion 1.19 1.05-1.25 at pH 7.4 WB) [facility] HospitalCHEM [id number] 06:26:00 Test Item Value Reference Range Interpretation Comments Magnesium Lvl (test code = Magnesium 2.4 1.8-2.4 Lvl) [place] 695802-04-22 06:26:00 Test Item Value Reference Range Interpretation Comments Glucose Lvl (test code = Glucose Lvl) 130 70-99 [place] 695802-04-22 06:26:00 Test Item Value Reference Range Interpretation Comments BUN (test code = BUN) 22 7-22 [place] 695802-04-22 06:26:00 Test Item Value Reference Range Interpretation Comments Creatinine Lvl (test code = Creatinine 1.31 0.50-1.40 Lvl) [place] 695802-04-22 06:26:00 Test Item Value Reference Range Interpretation Comments Sodium Lvl (test code = Sodium Lvl) 137 135-145 [place] 695802-04-22 06:26:00 Test Item Value Reference Range Interpretation Comments Potassium Lvl (test code = Potassium 3.8 3.5-5.1 Lvl) [place] 695802-04-22 06:26:00 Test Item Value Reference Range Interpretation Comments Chloride Lvl (test code = Chloride Lvl) 101 95-109 [place] 695802-04-22 06:26:00 Test Item Value Reference Range Interpretation Comments CO2 (test code = CO2) 29 24-32 [place] 695802-04-22 06:26:00 Test Item Value Reference Range Interpretation Comments AGAP (test code = AGAP) 10.8 10.0-20.0 [place] 695802-04-22 06:26:00 Test Item Value Reference Range Interpretation Comments Calcium Lvl (test code = Calcium Lvl) 9.3 8.5-10.5 [place] 695802-04-22 06:26:00 Test Item Value Reference Range Interpretation Comments B/C Ratio (test code = B/C Ratio) 17 1 6-25 [place] 695802-04-22 06:26:00 Test Item Value Reference Range Interpretation Comments Total Protein (test code = Total 6.9 6.4-8.4 Protein) [place] 695802-04-22 06:26:00 Test Item Value Reference Range Interpretation Comments Albumin Lvl (test code = Albumin Lvl) 3.3 3.5-5.0 [facility] [place]PATRIC[place] [id number] 06:26:00 Test Item Value Reference Range Interpretation Comments Globulin (test code = Globulin) 3.6 2.7-4.2 [place] 695802-04-22 06:26:00 Test Item Value Reference Range Interpretation Comments A/G Ratio (test code = A/G Ratio) 0.9 1 0.7-1.6 [place] [address]-04-22 06:26:00 Test Item Value Reference Range Interpretation Comments ALT (test code = ALT) 15 See_Comment [Auto mated message] The system which ge nerated this result transmit diamante reference range : <=65. The reference range was not used to interpr et this result as amaury l/abnormal. [facility] HospitalEclipse [facility] Solutions [id number] 06:26:00 Test Item Value Reference Range Interpretation Comments AST (test code = AST) 14 See_Comment [Auto mated message] The system which ge nerated this result transmit diamante reference range : <=37. The reference range was not used to interpr et this result as amaury l/abnormal. [facility] HospitalE[facility] [id number] 06:26:00 Test Item Value Reference Range Interpretation Comments Alk Phos (test code = Alk Phos) 68 39-136 [facility] [id number] 06:26:00 Test Item Value Reference Range Interpretation Comments Bili Total (test code = Bili Total) 1.3 0.2-1.3 [place] 695802-04-22 06:26:00 Test Item Value Reference Range Interpretation Comments eGFR (test code = eGFR) 50 [facility] [id number] 06:26:00 Test Item Value Reference Range Interpretation Comments Phosphorus (test code = Phosphorus) 3.6 2.5-4.5 [place] 956782-04-22 06:26:00 Test Item Value Reference Range Interpretation Comments Segs (test code = Segs) 64.9 45.0-75.0 [facility] CenterBmhzltqZCWVPFKNWQ6783-36-61 06:26:00 Test Item Value Reference Range Interpretation Comments Lymphocytes (test code = Lymphocytes) 20.3 20.0-40.0 [facility] HospitalLajazwjBSADIVZEWQ3285-87-07 06:26:00 Test Item Value Reference Range Interpretation Comments Monocytes (test code = Monocytes) 10.4 2.0-12.0 [place] 956782-04-22 06:26:00 Test Item Value Reference Range Interpretation Comments Eosinophils (test code = 3.3 See_Comment [A utomated message] The Eosinophils) system which ge nerated this result tra nsmitted reference range : <=4.0. The reference r corey was not used to int erpret this result as normal/abnormal . [place] 956782-04-22 06:26:00 Test Item Value Reference Range Interpretation Comments Basophils (test code = 1.1 See_Comment [Aut omated message] The Basophils) system which ge nerated this result tra nsmitted reference range : <=1.0. The reference r corey was not used to int erpret this result as normal/abnormal . [place] 956782-04-22 06:26:00 Test Item Value Reference Range Interpretation Comments Neutrophils # (test code = Neutrophils 4.2 1.5-8.1 #) [place] 956782-04-22 06:26:00 Test Item Value Reference Range Interpretation Comments Lymphocytes # (test code = Lymphocytes 1.3 1.0-5.5 #) [place] 956782-04-22 06:26:00 Test Item Value Reference Range Interpretation Comments Monocytes # (test code 0.7 See_Comment [Aut omated message] The = Monocytes #) system which generated this result tra nsmitted reference range : <=0.8. The reference r corey was not used to int erpret this result as normal/abnormal . [place] 956782-04-22 06:26:00 Test Item Value Reference Range Interpretation Comments Eosinophils # (test code 0.2 See_Comment [A utomated message] The = Eosinophils #) system whic h generated this result tra nsmitted reference range : <=0.5. The reference r corey was not used to int erpret this result as normal/abnormal . [facility] [id number] 06:26:00 Test Item Value Reference Range Interpretation Comments Magnesium Lvl (test code = Magnesium 2.4 1.8-2.4 Lvl) [facility] [id number] 06:26:00 Test Item Value Reference Range Interpretation Comments Glucose Lvl (test code = Glucose Lvl) 130 70-99 [place] 695802-04-22 06:26:00 Test Item Value Reference Range Interpretation Comments BUN (test code = BUN) 22 7-22 [place] 695802-04-22 06:26:00 Test Item Value Reference Range Interpretation Comments Creatinine Lvl (test code = Creatinine 1.31 0.50-1.40 Lvl) [facility]2022-04-22 06:26:00 Test Item Value Reference Range Interpretation Comments Sodium Lvl (test code = Sodium Lvl) 137 135-145 [place] 695802-04-22 06:26:00 Test Item Value Reference Range Interpretation Comments Potassium Lvl (test code = Potassium 3.8 3.5-5.1 Lvl) [place] 695802-04-22 06:26:00 Test Item Value Reference Range Interpretation Comments Chloride Lvl (test code = Chloride Lvl) 101 95-109 [place] 695802-04-22 06:26:00 Test Item Value Reference Range Interpretation Comments CO2 (test code = CO2) 29 24-32 [place] 695802-04-22 06:26:00 Test Item Value Reference Range Interpretation Comments AGAP (test code = AGAP) 10.8 10.0-20.0 [place] 695802-04-22 06:26:00 Test Item Value Reference Range Interpretation Comments Calcium Lvl (test code = Calcium Lvl) 9.3 8.5-10.5 [place] 695802-04-22 06:26:00 Test Item Value Reference Range Interpretation Comments B/C Ratio (test code = B/C Ratio) 17 1 6-25 [place] 695802-04-22 06:26:00 Test Item Value Reference Range Interpretation Comments Total Protein (test code = Total 6.9 6.4-8.4 Protein) [place] 695802-04-22 06:26:00 Test Item Value Reference Range Interpretation Comments Albumin Lvl (test code = Albumin Lvl) 3.3 3.5-5.0 [place] 695802-04-22 06:26:00 Test Item Value Reference Range Interpretation Comments Globulin (test code = Globulin) 3.6 2.7-4.2 [facility] [id number] 06:26:00 Test Item Value Reference Range Interpretation Comments A/G Ratio (test code = A/G Ratio) 0.9 1 0.7-1.6 [place] [address]-04-22 06:26:00 Test Item Value Reference Range Interpretation Comments ALT (test code = ALT) 15 See_Comment [Auto mated message] The system which ge nerated this result transmit diamante reference range : <=65. The reference range was not used to interpr et this result as amaury l/abnormal. [facility] [id number] 06:26:00 Test Item Value Reference Range Interpretation Comments AST (test code = AST) 14 See_Comment [Auto mated message] The system which ge nerated this result transmit diamante reference range : <=37. The reference range was not used to interpr et this result as amaury l/abnormal. [facility] [id number] 06:26:00 Test Item Value Reference Range Interpretation Comments Alk Phos (test code = Alk Phos) 68 39-136 [facility] [id number] 06:26:00 Test Item Value Reference Range Interpretation Comments Bili Total (test code = Bili Total) 1.3 0.2-1.3 [facility] [id number] 06:26:00 Test Item Value Reference Range Interpretation Comments eGFR (test code = eGFR) 50 [facility] [id number] 06:26:00 Test Item Value Reference Range Interpretation Comments Phosphorus (test code = Phosphorus) 3.6 2.5-4.5 [facility] CenterQkrlhorJKCDSPOXKB7262-99-86 06:26:00 Test Item Value Reference Range Interpretation Comments Segs (test code = Segs) 64.9 45.0-75.0 [facility] CenterYdzciueXZGUXVXUID8406-08-39 06:26:00 Test Item Value Reference Range Interpretation Comments Lymphocytes (test code = Lymphocytes) 20.3 20.0-40.0 [facility] CenterVxnhjgmTGPDTRDNVN5129-07-27 06:26:00 Test Item Value Reference Range Interpretation Comments Monocytes (test code = Monocytes) 10.4 2.0-12.0 [facility] CenterOtqxivjODCTDHFBZS5715-23-02 06:26:00 Test Item Value Reference Range Interpretation Comments Eosinophils (test code = 3.3 See_Comment [A utomated message] The Eosinophils) system which ge nerated this result tra nsmitted reference range : <=4.0. The reference r corey was not used to int erpret this result as normal/abnormal . [place] 956782-04-22 06:26:00 Test Item Value Reference Range Interpretation Comments Basophils (test code = 1.1 See_Comment [Aut omated message] The Basophils) system which ge nerated this result tra nsmitted reference range : <=1.0. The reference r corey was not used to int erpret this result as normal/abnormal . [place] 956782-04-22 06:26:00 Test Item Value Reference Range Interpretation Comments Neutrophils # (test code = Neutrophils 4.2 1.5-8.1 #) [place] [address]-04-22 06:26:00 Test Item Value Reference Range Interpretation Comments Lymphocytes # (test code = Lymphocytes 1.3 1.0-5.5 #) [place] 956782-04-22 06:26:00 Test Item Value Reference Range Interpretation Comments Monocytes # (test code 0.7 See_Comment [Aut omated message] The = Monocytes #) system which generated this result tra nsmitted reference range : <=0.8. The reference r corey was not used to int erpret this result as normal/abnormal . [place] [address]-04-22 06:26:00 Test Item Value Reference Range Interpretation Comments Eosinophils # (test code 0.2 See_Comment [A utomated message] The = Eosinophils #) system whic h generated this result tra nsmitted reference range : <=0.5. The reference r corey was not used to int erpret this result as normal/abnormal . [place] 956782-04-22 06:26:00 Test Item Value Reference Range Interpretation Comments Basophils # (test code 0.1 See_Comment [Aut omated message] The = Basophils #) system which generated this result tra nsmitted reference range : <=0.2. The reference r corey was not used to int erpret this result as normal/abnormal . [place] 956782-04-22 06:26:00 Test Item Value Reference Range Interpretation Comments WBC (test code = WBC) 6.4 3.7-10.4 [facility]cosYgcfoygHKZADFRBAT4855-19-06 06:26:00 Test Item Value Reference Range Interpretation Comments RBC (test code = RBC) 4.38 4.70-6.10 [facility] MarcosBpnpdhpLNLIMPHRJV2246-67-45 06:26:00 Test Item Value Reference Range Interpretation Comments Hgb (test code = Hgb) 13.8 14.0-18.0 [facility] MarcosOmkkgqpLNUZLMCQFK8911-92-56 06:26:00 Test Item Value Reference Range Interpretation Comments Hct (test code = Hct) 40.6 42.0-54.0 [facility] MarcosHphsoorBSRULUZKQC6353-47-51 06:26:00 Test Item Value Reference Range Interpretation Comments MCV (test code = MCV) 92.9 80.0-94.0 [facility] MarcosCuonnrcXVSIFFYNTA6201-46-70 06:26:00 Test Item Value Reference Range Interpretation Comments MCH (test code = MCH) 31.5 pg 27.0-31.0 [facility]cosIpmxhgjJAISJKWZJP8235-45-79 06:26:00 Test Item Value Reference Range Interpretation Comments MCHC (test code = MCHC) 34.0 32.0-36.0 [facility] MarcosHvzkalgORFCPOTRDB0383-32-56 06:26:00 Test Item Value Reference Range Interpretation Comments RDW (test code = RDW) 13.7 11.5-14.5 [facility]cosAalnpvqXQDUCSLVTC6695-07-05 06:26:00 Test Item Value Reference Range Interpretation Comments Platelet (test code = Platelet) 194 133-450 [facility] MarcosAxlezfiFXMCBKKDRC5945-80-43 06:26:00 Test Item Value Reference Range Interpretation Comments MPV (test code = MPV) 8.0 7.4-10.4 [facility]cosJoimvfsIRQNQJPPEQ7094-68-16 06:26:00 Test Item Value Reference Range Interpretation Comments Basophils # (test code 0.1 See_Comment [Aut omated message] The = Basophils #) system which generated this result tra nsmitted reference range : <=0.2. The reference r corey was not used to int erpret this result as normal/abnormal . [facility] MarcosHwgvrjvMSWPYAHLFY1072-08-64 06:26:00 Test Item Value Reference Range Interpretation Comments WBC (test code = WBC) 6.4 3.7-10.4 [facility] MarcosYebazzmHFKVXWVKAQ4113-54-40 06:26:00 Test Item Value Reference Range Interpretation Comments RBC (test code = RBC) 4.38 4.70-6.10 [facility] MarcosZofvrfsDHQORHXIOT1338-80-28 06:26:00 Test Item Value Reference Range Interpretation Comments Hgb (test code = Hgb) 13.8 14.0-18.0 [facility] MarcosUynwttvVEIGZMHYCH3461-57-88 06:26:00 Test Item Value Reference Range Interpretation Comments Hct (test code = Hct) 40.6 42.0-54.0 [facility] MarcosFdmwshtPMZYNWVVIC0452-29-55 06:26:00 Test Item Value Reference Range Interpretation Comments MCV (test code = MCV) 92.9 80.0-94.0 [facility]NexvyikMHUOICTTPH9513-48-42 06:26:00 Test Item Value Reference Range Interpretation Comments MCH (test code = MCH) 31.5 pg 27.0-31.0 [facility] MarcosCmyzdtqFKSVGSUVLN8432-38-83 06:26:00 Test Item Value Reference Range Interpretation Comments MCHC (test code = MCHC) 34.0 32.0-36.0 [facility] MarcosMpkdrtmUCBPMEWDTX9008-84-15 06:26:00 Test Item Value Reference Range Interpretation Comments RDW (test code = RDW) 13.7 11.5-14.5 [facility] MarcosZbxhvsiRHPROCBBNA8797-94-44 06:26:00 Test Item Value Reference Range Interpretation Comments Platelet (test code = Platelet) 194 133-450 [facility] MarcosRmdvynrTMYBXHGVOP7892-20-63 06:26:00 Test Item Value Reference Range Interpretation Comments MPV (test code = MPV) 8.0 7.4-10.4 [facility] HospitalScientific IntakePAINTS[facility] [id number] 11:15:00 Test Item Value Reference Range Interpretation Comments HS Troponin I (test code = HS Troponin 114 I) [facility]MEDOVENTAC [id number] 11:15:00 Test Item Value Reference Range Interpretation Comments HS Troponin I (test code = HS Troponin 114 I) [facility] [id number] 08:36:00 Test Item Value Reference Range Interpretation Comments Magnesium Lvl (test code = Magnesium 2.3 1.8-2.4 Lvl) [facility] [id number] 08:36:00 Test Item Value Reference Range Interpretation Comments Phosphorus (test code = Phosphorus) 3.1 2.5-4.5 [facility]2022-04-21 08:36:00 Test Item Value Reference Range Interpretation Comments Glucose Lvl (test code = Glucose Lvl) 235 70-99 [facility]2022-04-21 08:36:00 Test Item Value Reference Range Interpretation Comments BUN (test code = BUN) 19 7-22 [facility]2022-04-21 08:36:00 Test Item Value Reference Range Interpretation Comments Creatinine Lvl (test code = Creatinine 1.37 0.50-1.40 Lvl) [facility]2022-04-21 08:36:00 Test Item Value Reference Range Interpretation Comments Sodium Lvl (test code = Sodium Lvl) 135 135-145 [facility]2022-04-21 08:36:00 Test Item Value Reference Range Interpretation Comments Potassium Lvl (test code = Potassium 3.7 3.5-5.1 Lvl) [facility]2022-04-21 08:36:00 Test Item Value Reference Range Interpretation Comments Chloride Lvl (test code = Chloride Lvl) 101 95-109 [facility]2022-04-21 08:36:00 Test Item Value Reference Range Interpretation Comments CO2 (test code = CO2) 24 24-32 [facility]2022-04-21 08:36:00 Test Item Value Reference Range Interpretation Comments AGAP (test code = AGAP) 13.7 10.0-20.0 [facility]2022-04-21 08:36:00 Test Item Value Reference Range Interpretation Comments Calcium Lvl (test code = Calcium Lvl) 9.1 8.5-10.5 [facility]2022-04-21 08:36:00 Test Item Value Reference Range Interpretation Comments B/C Ratio (test code = B/C Ratio) 14 1 6-25 [place] 695802-04-21 08:36:00 Test Item Value Reference Range Interpretation Comments Total Protein (test code = Total 7.2 6.4-8.4 Protein) [facility]2022-04-21 08:36:00 Test Item Value Reference Range Interpretation Comments Albumin Lvl (test code = Albumin Lvl) 3.5 3.5-5.0 [place] 695802-04-21 08:36:00 Test Item Value Reference Range Interpretation Comments Globulin (test code = Globulin) 3.7 2.7-4.2 [facility] [id number] 08:36:00 Test Item Value Reference Range Interpretation Comments A/G Ratio (test code = A/G Ratio) 0.9 1 0.7-1.6 [facility] [id number] 08:36:00 Test Item Value Reference Range Interpretation Comments ALT (test code = ALT) 18 See_Comment [Auto mated message] The system which ge nerated this result transmit diamante reference range : <=65. The reference range was not used to interpr et this result as amaury l/abnormal. [facility] [employer] [id number] 08:36:00 Test Item Value Reference Range Interpretation Comments AST (test code = AST) 16 See_Comment [Auto mated message] The system which ge nerated this result transmit diamante reference range : <=37. The reference range was not used to interpr et this result as amaury l/abnormal. [facility] [employer] [id number] 08:36:00 Test Item Value Reference Range Interpretation Comments Alk Phos (test code = Alk Phos) 71 39-136 [facility] [employer] [id number] 08:36:00 Test Item Value Reference Range Interpretation Comments Bili Total (test code = Bili Total) 1.1 0.2-1.3 [facility] [employer] [id number] 08:36:00 Test Item Value Reference Range Interpretation Comments eGFR (test code = eGFR) 48 [facility] [employer] [id number] 08:36:00 Test Item Value Reference Range Interpretation Comments Bili Direct (test code 0.2 See_Comment [Aut omated message] The = [employer]) system which generated this result tra nsmitted reference range : <=0.3. The reference r corey was not used to int erpret this result as amaury l/abnormal. [facility] RywigucYJEMKMFTMG2846-60-52 08:36:00 Test Item Value Reference Range Interpretation Comments WBC (test code = WBC) 7.7 3.7-10.4 [facility] HyynmpvIHPFJDZYBP8813-34-08 08:36:00 Test Item Value Reference Range Interpretation Comments RBC (test code = RBC) 4.55 4.70-6.10 [facility]vosbfjHKEPKNHRVQ5854-20-[facility] 08:36:00 Test Item Value Reference Range Interpretation Comments Hgb (test code = Hgb) 14.3 14.0-18.0 [place] 956782-04-21 08:36:00 Test Item Value Reference Range Interpretation Comments Hct (test code = Hct) 42.6 42.0-54.0 [place] 956782-04-21 08:36:00 Test Item Value Reference Range Interpretation Comments MCV (test code = MCV) 93.7 80.0-94.0 [place] [address]-04-21 08:36:00 Test Item Value Reference Range Interpretation Comments MCH (test code = MCH) 31.4 pg 27.0-31.0 [place] [address]-04-21 08:36:00 Test Item Value Reference Range Interpretation Comments MCHC (test code = MCHC) 33.5 32.0-36.0 [place] 956782-04-21 08:36:00 Test Item Value Reference Range Interpretation Comments RDW (test code = RDW) 13.6 11.5-14.5 [place] 956782-04-21 08:36:00 Test Item Value Reference Range Interpretation Comments Platelet (test code = Platelet) 242 133-450 [facility]cosMwrkmfrNECUWCKBMK7953-51-48 08:36:00 Test Item Value Reference Range Interpretation Comments MPV (test code = MPV) 8.0 7.4-10.4 [place] [address]-04-21 08:36:00 Test Item Value Reference Range Interpretation Comments PT (test code = PT) 13.2 s 12.0-14.7 [place] [address]-04-21 08:36:00 Test Item Value Reference Range Interpretation Comments INR (test code = INR) 1.01 1 0.85-1.17 [place] [address]-04-21 08:36:00 Test Item Value Reference Range Interpretation Comments PTT (test code = PTT) 24.7 s 22.9-35.8 [place] [address]-04-21 08:36:00 Test Item Value Reference Range Interpretation Comments Segs (test code = Segs) 61.0 45.0-75.0 [place] [address]-04-21 08:36:00 Test Item Value Reference Range Interpretation Comments Lymphocytes (test code = Lymphocytes) 24.8 20.0-40.0 [place] [address]-04-21 08:36:00 Test Item Value Reference Range Interpretation Comments Monocytes (test code = Monocytes) 9.1 2.0-12.0 [place] [address]-04-21 08:36:00 Test Item Value Reference Range Interpretation Comments Eosinophils (test code = 4.3 See_Comment [A utomated message] The Eosinophils) system which ge nerated this result tra nsmitted reference range : <=4.0. The reference r corey was not used to int erpret this result as normal/abnormal . [place] [address]-04-21 08:36:00 Test Item Value Reference Range Interpretation Comments Basophils (test code = 0.8 See_Comment [Aut omated message] The Basophils) system which ge nerated this result tra nsmitted reference range : <=1.0. The reference r corey was not used to int erpret this result as normal/abnormal . [place] 956782-04-21 08:36:00 Test Item Value Reference Range Interpretation Comments Neutrophils # (test code = Neutrophils 4.7 1.5-8.1 #) [place] [address]-04-21 08:36:00 Test Item Value Reference Range Interpretation Comments Lymphocytes # (test code = Lymphocytes 1.9 1.0-5.5 #) [place] 956782-04-21 08:36:00 Test Item Value Reference Range Interpretation Comments Monocytes # (test code 0.7 See_Comment [Aut omated message] The = Monocytes #) system which generated this result tra nsmitted reference range : <=0.8. The reference r corey was not used to int erpret this result as normal/abnormal . [place] [address]-04-21 08:36:00 Test Item Value Reference Range Interpretation Comments Eosinophils # (test code 0.3 See_Comment [A utomated message] The = Eosinophils #) system whic h generated this result tra nsmitted reference range : <=0.5. The reference r corey was not used to int erpret this result as normal/abnormal . [place] 956782-04-21 08:36:00 Test Item Value Reference Range Interpretation Comments Basophils # (test code 0.1 See_Comment [Aut omated message] The = Basophils #) system which generated this result tra nsmitted reference range : <=0.2. The reference r corey was not used to int erpret this result as normal/abnormal . [place] 695802-04-21 08:36:00 Test Item Value Reference Range Interpretation Comments Magnesium Lvl (test code = Magnesium 2.3 1.8-2.4 Lvl) [place] 695802-04-21 08:36:00 Test Item Value Reference Range Interpretation Comments Phosphorus (test code = Phosphorus) 3.1 2.5-4.5 [place] 695802-04-21 08:36:00 Test Item Value Reference Range Interpretation Comments Glucose Lvl (test code = Glucose Lvl) 235 70-99 [place] 695802-04-21 08:36:00 Test Item Value Reference Range Interpretation Comments BUN (test code = BUN) 19 7-22 [place] 695802-04-21 08:36:00 Test Item Value Reference Range Interpretation Comments Creatinine Lvl (test code = Creatinine 1.37 0.50-1.40 Lvl) [place] 695802-04-21 08:36:00 Test Item Value Reference Range Interpretation Comments Sodium Lvl (test code = Sodium Lvl) 135 135-145 [place] 695802-04-21 08:36:00 Test Item Value Reference Range Interpretation Comments Potassium Lvl (test code = Potassium 3.7 3.5-5.1 Lvl) [place] 695802-04-21 08:36:00 Test Item Value Reference Range Interpretation Comments Chloride Lvl (test code = Chloride Lvl) 101 95-109 [place] 695802-04-21 08:36:00 Test Item Value Reference Range Interpretation Comments CO2 (test code = CO2) 24 24-32 [place] 695802-04-21 08:36:00 Test Item Value Reference Range Interpretation Comments AGAP (test code = AGAP) 13.7 10.0-20.0 [place] 695802-04-21 08:36:00 Test Item Value Reference Range Interpretation Comments Calcium Lvl (test code = Calcium Lvl) 9.1 8.5-10.5 [facility] [id number] 08:36:00 Test Item Value Reference Range Interpretation Comments B/C Ratio (test code = B/C Ratio) 14 1 6-25 [facility] [id number] 08:36:00 Test Item Value Reference Range Interpretation Comments Total Protein (test code = Total 7.2 6.4-8.4 Protein) [address]04-21 08:36:00 Test Item Value Reference Range Interpretation Comments Albumin Lvl (test code = Albumin Lvl) 3.5 3.5-5.0 [facility] [id number] 08:36:00 Test Item Value Reference Range Interpretation Comments Globulin (test code = Globulin) 3.7 2.7-4.2 [facility] [id number] 08:36:00 Test Item Value Reference Range Interpretation Comments A/G Ratio (test code = A/G Ratio) 0.9 1 0.7-1.6 [facility] [id number] 08:36:00 Test Item Value Reference Range Interpretation Comments ALT (test code = ALT) 18 See_Comment [Auto mated message] The system which ge nerated this result transmit diamante reference range : <=65. The reference range was not used to interpr et this result as amaury l/abnormal. [facility] [id number] 08:36:00 Test Item Value Reference Range Interpretation Comments AST (test code = AST) 16 See_Comment [Auto mated message] The system which ge nerated this result transmit diamante reference range : <=37. The reference range was not used to interpr et this result as amaury l/abnormal. [facility] [id number] 08:36:00 Test Item Value Reference Range Interpretation Comments Alk Phos (test code = Alk Phos) 71 39-136 [facility] [id number] 08:36:00 Test Item Value Reference Range Interpretation Comments Bili Total (test code = Bili Total) 1.1 0.2-1.3 [facility] [id number] 08:36:00 Test Item Value Reference Range Interpretation Comments eGFR (test code = eGFR) 48 [facility]annCR[facility]ITALGMLYR5390-02-85 08:36:00 Test Item Value Reference Range Interpretation Comments Bili Direct (test code 0.2 See_Comment [Aut omated message] The = Bili Direct) system which generated this result tra nsmitted reference range : <=0.3. The reference r corey was not used to int erpret this result as amaury l/abnormal. [place] 956782-04-21 08:36:00 Test Item Value Reference Range Interpretation Comments WBC (test code = WBC) 7.7 3.7-10.4 [place] 956782-04-21 08:36:00 Test Item Value Reference Range Interpretation Comments RBC (test code = RBC) 4.55 4.70-6.[address]04-21 08:36:00 Test Item Value Reference Range Interpretation Comments Hgb (test code = Hgb) 14.3 14.0-18.0 [address]04-21 08:36:00 Test Item Value Reference Range Interpretation Comments Hct (test code = Hct) 42.6 42.0-54.0 [address]04-21 08:36:00 Test Item Value Reference Range Interpretation Comments MCV (test code = MCV) 93.7 80.0-94.0 [address]04-21 08:36:00 Test Item Value Reference Range Interpretation Comments MCH (test code = MCH) 31.4 pg 27.0-31.0 [address]04-21 08:36:00 Test Item Value Reference Range Interpretation Comments MCHC (test code = MCHC) 33.5 32.0-36.0 [address]04-21 08:36:00 Test Item Value Reference Range Interpretation Comments RDW (test code = RDW) 13.6 11.5-14.5 [address]04-21 08:36:00 Test Item Value Reference Range Interpretation Comments Platelet (test code = Platelet) 242 133-450 [place] 956782-04-21 08:36:00 Test Item Value Reference Range Interpretation Comments MPV (test code = MPV) 8.0 7.4-10.4 [address]04-21 08:36:00 Test Item Value Reference Range Interpretation Comments PT (test code = PT) 13.2 s 12.0-14.7 [place] [address]-04-21 08:36:00 Test Item Value Reference Range Interpretation Comments INR (test code = INR) 1.01 1 0.85-1.17 [place] [address]-04-21 08:36:00 Test Item Value Reference Range Interpretation Comments PTT (test code = PTT) 24.7 s 22.9-35.8 [place] [address]-04-21 08:36:00 Test Item Value Reference Range Interpretation Comments Segs (test code = Segs) 61.0 45.0-75.0 [place] [address]-04-21 08:36:00 Test Item Value Reference Range Interpretation Comments Lymphocytes (test code = Lymphocytes) 24.8 20.0-40.0 [place] [address]-04-21 08:36:00 Test Item Value Reference Range Interpretation Comments Monocytes (test code = Monocytes) 9.1 2.0-12.0 [place] [address]-04-21 08:36:00 Test Item Value Reference Range Interpretation Comments Eosinophils (test code = 4.3 See_Comment [A utomated message] The Eosinophils) system which ge nerated this result tra nsmitted reference range : <=4.0. The reference r corey was not used to int erpret this result as normal/abnormal . [place] [address]-04-21 08:36:00 Test Item Value Reference Range Interpretation Comments Basophils (test code = 0.8 See_Comment [Aut omated message] The Basophils) system which ge nerated this result tra nsmitted reference range : <=1.0. The reference r corey was not used to int erpret this result as normal/abnormal . [place] 956782-04-21 08:36:00 Test Item Value Reference Range Interpretation Comments Neutrophils # (test code = Neutrophils 4.7 1.5-8.1 #) [place] 956782-04-21 08:36:00 Test Item Value Reference Range Interpretation Comments Lymphocytes # (test code = Lymphocytes 1.9 1.0-5.5 #) [place] [address]-04-21 08:36:00 Test Item Value Reference Range Interpretation Comments Monocytes # (test code 0.7 See_Comment [Aut omated message] The = Monocytes #) system which generated this result tra nsmitted reference range : <=0.8. The reference r corey was not used to int erpret this result as normal/abnormal . [facility]iebWNEXPOXGZR6004-06-86 08:36:00 Test Item Value Reference Range Interpretation Comments Eosinophils # (test code 0.3 See_Comment [A utomated message] The = Eosinophils #) system whic h generated this result tra nsmitted reference range : <=0.5. The reference r corey was not used to int erpret this result as normal/abnormal . [facility] CenterFiydnagSYIJKGKGAA2234-64-72 08:36:00 Test Item Value Reference Range Interpretation Comments Basophils # (test code 0.1 See_Comment [Aut omated message] The = Basophils #) system which generated this result tra nsmitted reference range : <=0.2. The reference r corey was not used to int erpret this result as normal/abnormal . [facility] 15:17:00 Test Item Value Reference Range Interpretation Comments HS Troponin I 1 Hr (test code = HS 114 Troponin I 1 Hr) [facility] 15:17:00 Test Item Value Reference Range Interpretation Comments HS Troponin I 0 to 1 Hour Delta (test -3 code = HS Troponin I 0 to 1 Hour Delta) [facility] 15:17:00 Test Item Value Reference Range Interpretation Comments HS Troponin I 1 Hr (test code = HS 114 Troponin I 1 Hr) [facility] 15:17:00 Test Item Value Reference Range Interpretation Comments HS Troponin I 0 to 1 Hour Delta (test -3 code = HS Troponin I 0 to 1 Hour Delta) [facility] 13:55:00 Test Item Value Reference Range Interpretation Comments HS Troponin I Baseline (test code = HS 117 Troponin I Baseline) [facility] CenterYbvcccvWPQSOD4097-43-25 13:55:00 Test Item Value Reference Range Interpretation Comments Trig (test code = Trig) 128 [facility] CenterQdrspclLJOJVC8584-17-46 13:55:00 Test Item Value Reference Range Interpretation Comments Chol (test code = Chol) 86 [facility] CenterQkeydisWITYTI6166-07-48 13:55:00 Test Item Value Reference Range Interpretation Comments HDL (test code = HDL) 50 [facility] CenterAqzrnqnWFIRKI1424-75-50 13:55:00 Test Item Value Reference Range Interpretation Comments CHD Risk (test code = CHD Risk) 1.72 1 4.00-7.30 [facility] EhqigfzFHYXBO7812-44-30 13:55:00 Test Item Value Reference Range Interpretation Comments LDL (Calculated) (test code = LDL 10 (Calculated)) [facility] CenterIloqxymERMSMG6378-81-53 13:55:00 Test Item Value Reference Range Interpretation Comments VLDL (test code = VLDL) 26 1 [facility] CenterannSPECIAL [id number] 13:55:00 Test Item Value Reference Range Interpretation Comments Hgb A1C (test code = Hgb A1C) 9.9 [facility] CenterannCARDIAC [id number] 13:55:00 Test Item Value Reference Range Interpretation Comments HS Troponin I Baseline (test code = HS 117 Troponin I Baseline) [facility] CenterXaxcvvdDLLFXY5389-14-72 13:55:00 Test Item Value Reference Range Interpretation Comments Trig (test code = Trig) 128 [facility] CenterJsznqkbDTPGAH8591-51-06 13:55:00 Test Item Value Reference Range Interpretation Comments Chol (test code = Chol) 86 [facility] CenterJjtfetiAEMHWS4820-54-66 13:55:00 Test Item Value Reference Range Interpretation Comments HDL (test code = HDL) 50 [facility] CenterAmmsowtAOFZTP4373-98-61 13:55:00 Test Item Value Reference Range Interpretation Comments CHD Risk (test code = CHD Risk) 1.72 1 4.00-7.30 [facility] CenterXxjsbmrOWHRNF4649-19-69 13:55:00 Test Item Value Reference Range Interpretation Comments LDL (Calculated) (test code = LDL 10 (Calculated)) [facility] CenterUopipakAKGCOC3800-70-45 13:55:00 Test Item Value Reference Range Interpretation Comments VLDL (test code = VLDL) 26 1 [facility]annLOCATED WITHIN [facility]ENTERIAL [id number] 13:55:00 Test Item Value Reference Range Interpretation Comments Hgb A1C (test code = Hgb A1C) 9.9 [facility] CenterannCHEM [id number] 12:59:00 Test Item Value Reference Range Interpretation Comments POC Creatinine (test code = POC 1.5 0.5-1.4 Creatinine) [facility] [id number] 12:59:00 Test Item Value Reference Range Interpretation Comments POC Creatinine (test code = POC 1.5 0.5-1.4 Creatinine) [facility] HospitalGolecmiWEGZLVIKOQ5168-50-71 12:16:00 Test Item Value Reference Range Interpretation Comments Coronavirus (COVID-19) Not Detected (03/05/22 ERI (test code = 7:16 AM) Coronavirus (COVID-19) ERI) [facility] HospitalZlrledbCVQMKXNGBV5340-64-90 12:16:00 Test Item Value Reference Range Interpretation Comments Coronavirus (COVID-19) Not Detected (03/05/22 ERI (test code = 7:16 AM) Coronavirus (COVID-19) ERI) [facility] [employer]hom[employer] [id number] 11:47:00 Test Item Value Reference Range Interpretation Comments ABO/Rh (test code = ABO/Rh) A POS [facility] [employer] [id number] 11:47:00 Test Item Value Reference Range Interpretation Comments Antibody Scrn (test Negative (03/05/22 6:47 code = Antibody Scrn) AM) [facility] [employer] [id number] 11:47:00 Test Item Value Reference Range Interpretation Comments Total Protein (test code = Total 6.7 6.4-8.4 Protein) [facility] [employer]2022-04-20 11:47:00 Test Item Value Reference Range Interpretation Comments Albumin Lvl (test code = Albumin Lvl) 3.3 3.5-5.0 [facility] [employer]2022-04-20 11:47:00 Test Item Value Reference Range Interpretation Comments ALT (test code = ALT) 19 See_Comment [Auto mated message] The system which ge nerated this result transmit diamante reference range : <=65. The reference range was not used to interpr et this result as amaury l/abnormal. [employer]2022-04-20 11:47:00 Test Item Value Reference Range Interpretation Comments AST (test code = AST) 18 See_Comment [Auto mated message] The system which ge nerated this result transmit diamante reference range : <=37. The reference range was not used to interpr et this result as amaury l/abnormal. [employer]2022-04-20 11:47:00 Test Item Value Reference Range Interpretation Comments Alk Phos (test code = Alk Phos) 66 39-136 [facility] [employer] [id number] 11:47:00 Test Item Value Reference Range Interpretation Comments Bili Total (test code = Bili Total) 0.6 0.2-1.3 [facility] [id number] 11:47:00 Test Item Value Reference Range Interpretation Comments B/C Ratio (test code = B/C Ratio) 12 1 6-25 [facility] [employer] [id number] 11:47:00 Test Item Value Reference Range Interpretation Comments Globulin (test code = Globulin) 3.4 2.7-4.2 [facility] [employer] [id number] 11:47:00 Test Item Value Reference Range Interpretation Comments A/G Ratio (test code = A/G Ratio) 1.0 1 0.7-1.6 [facility] HospitalVdsjtjlZZXXBKPVSI7935-22-46 11:47:00 Test Item Value Reference Range Interpretation Comments PTT (test code = PTT) 30.8 s 22.9-35.8 [facility] HospitalPARATHYROID [id number] 11:47:00 Test Item Value Reference Range Interpretation Comments Ca Ion WB (test code = Ca Ion WB) 1.05 1.05-1.25 [facility] HigherNextAbra[facility] CampusGradeableROPER HOSPITALJNMKCGR2107-83-57 11:47:00 Test Item Value Reference Range Interpretation Comments Ca Ion at pH 7.4 WB (test code = Ca Ion 1.03 1.05-1.25 at pH 7.4 WB) [facility] [employer] [id number] 11:47:00 Test Item Value Reference Range Interpretation Comments ABO/Rh (test code = ABO/Rh) A POS [facility] [employer] [id number] 11:47:00 Test Item Value Reference Range Interpretation Comments Antibody Scrn (test Negative (03/05/22 6:47 code = Antibody Scrn) AM) [facility] [employer] [id number] 11:47:00 Test Item Value Reference Range Interpretation Comments Total Protein (test code = Total 6.7 6.4-8.4 Protein) [facility] [employer] [id number] 11:47:00 Test Item Value Reference Range Interpretation Comments Albumin Lvl (test code = Albumin Lvl) 3.3 3.5-5.0 [facility] [id number] 11:47:00 Test Item Value Reference Range Interpretation Comments ALT (test code = ALT) 19 See_Comment [Auto mated message] The system which ge nerated this result transmit diamante reference range : <=65. The reference range was not used to interpr et this result as amaury l/abnormal. [facility] [id number] 11:47:00 Test Item Value Reference Range Interpretation Comments AST (test code = AST) 18 See_Comment [Auto mated message] The system which ge nerated this result transmit diamante reference range : <=37. The reference range was not used to interpr et this result as amaury l/abnormal. [facility] [employer] [id number] 11:47:00 Test Item Value Reference Range Interpretation Comments Alk Phos (test code = Alk Phos) 66 39-136 [facility] [id number] 11:47:00 Test Item Value Reference Range Interpretation Comments Bili Total (test code = Bili Total) 0.6 0.2-1.3 [facility] [id number] 11:47:00 Test Item Value Reference Range Interpretation Comments B/C Ratio (test code = B/C Ratio) 12 1 6-25 [facility] [id number] 11:47:00 Test Item Value Reference Range Interpretation Comments Globulin (test code = Globulin) 3.4 2.7-4.2 [facility] [id number] 11:47:00 Test Item Value Reference Range Interpretation Comments A/G Ratio (test code = A/G Ratio) 1.0 1 0.7-1.6 [facility] HospitalMcjvydfWYVXCDNKYT4568-80-01 11:47:00 Test Item Value Reference Range Interpretation Comments PTT (test code = PTT) 30.8 s 22.9-35.8 [facility]annPARATHYROID [id number] 11:47:00 Test Item Value Reference Range Interpretation Comments Ca Ion WB (test code = Ca Ion WB) 1.05 1.05-1.25 [facility] CenterannPARATHYROID [id number] 11:47:00 Test Item Value Reference Range Interpretation Comments Ca Ion at pH 7.4 WB (test code = Ca Ion 1.03 1.05-1.25 at pH 7.4 WB) [facility]2022-02-09 17:17:57 Test Item Value Reference Range Interpretation Comments POC glucose (test code = 112 mg/dL 65-99 H Ope rator Name: [id number]) Radu Duffy ice ID: [id number] able: TM Notified envelope adjuster Interpretation (test Abnormal code = 30104-3) [facility]2022-02-09 17:17:57 Test Item Value Reference Range Interpretation Comments POC glucose (test code = 112 mg/dL 65-99 H Ope rator Name: [id number]) Radu Sepulvedav ice ID: [id number] able: TM Notified envelope adjuster Interpretation (test Abnormal code = 99487-4) [facility]2022-02-09 17:17:57 Test Item Value Reference Range Interpretation Comments POC glucose (test code = 112 mg/dL 65-99 H Ope rator Name: [id number]) Radu Duffy ice ID: [id number] able: TM Notified envelope adjuster Interpretation (test Abnormal code = 39202-9) [facility]2022-02-09 17:17:57 Test Item Value Reference Range Interpretation Comments POC glucose (test code = 112 mg/dL 65-99 H Ope rator Name: [id number]) Radu Duffy ice ID: [id number] able: TM Notified envelope adjuster Interpretation (test Abnormal code = 97187-0) [place] [address] ywin5886-46-34 22:21:01 Test Item Value Reference Range Interpretation Comments Ventricular rate (test code = 253) Atrial rate (test code = 255) MT interval (test code = 266) QRSD interval [...] out Inferior infarct , age undetermined-Abnormal ECG- [address]2022-02-08 22:21:01 Test Item Value Reference Range Interpretation Comments Ventricular rate (test code = 253) Atrial rate (test code = 255) MT interval (test code = 266) QRSD interval [...] out Inferior infarct , age undetermined-Abnormal ECG- [address]2022-02-08 22:21:01 Test Item Value Reference Range Interpretation Comments Ventricular rate (test code = 253) Atrial rate (test code = 255) MT interval (test code = 266) QRSD interval [...] out Inferior infarct , age undetermined-Abnormal ECG- [address]2022-02-08 22:21:01 Test Item Value Reference Range Interpretation Comments Ventricular rate (test code = 253) Atrial rate (test code = 255) MT interval (test code = 266) QRSD interval [...] out Inferior infarct , age undetermined-Abnormal ECG- [facility] stress [id number] 20:13:39 Test Item Value Reference Range Interpretation Comments Resting HR (test code = 9800006074) Resting BP (test code = 5062369958) Peak MET Achieved (test code = 4685780432) Protocol Name (test Lexiscan code = 0078836300) Time in Exercise 00:01:00 Phase (test code = 8911898951) Max Systolic BP (test code = 8905453614) Max Diastolic BP (test code = 1547289032) Max Heart Rate (test code = 6005733270) Max Predicted Heart Rate (test code = 6173713182) Target HR Formula (220 - Age)*100% (test code = 4208955839) Test Indication (test chest pain code = 1162464579) Arrhy During Ex (test code = 6196242276) ECG Interp Before EX (test code = 7237420714) ECG Interp During Ex (test code = 7507180175) Ex Summary Comment (test code = 5347680737) Overall HR Response to Exercise (test code = 6269268908) Overall BP Response To Exercise (test code = 2014237471) Reason for Protocol Complete Termination (test code = 5423035070) Stress Test -Waveform interpreted in Impression (test code report associated with = 2647503233) image study. No interpretation is provided as part of this Stress ECG report.- [facility] stress [id number] 20:13:39 Test Item Value Reference Range Interpretation Comments Resting HR (test code = 5817425937) Resting BP (test code = 4454960209) Peak MET Achieved (test code = 5254665489) Protocol Name (test Lexiscan code = 5703998278) Time in Exercise 00:01:00 Phase (test code = 0962349277) Max Systolic BP (test code = 6371031168) Max Diastolic BP (test code = 4175139307) Max Heart Rate (test code = 8146710946) Max Predicted Heart Rate (test code = 6704104660) Target HR Formula (220 - Age)*100% (test code = 2809047610) Test Indication (test chest pain code = 9332869841) Arrhy During Ex (test code = 4528266338) ECG Interp Before EX (test code = 4396278483) ECG Interp During Ex (test code = 2224632939) Ex Summary Comment (test code = 2905854212) Overall HR Response to Exercise (test code = 8334593056) Overall BP Response To Exercise (test code = 4306657391) Reason for Protocol Complete Termination (test code = 7069126587) Stress Test -Waveform interpreted in Impression (test code report associated with = 7047651454) image study. 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 (test code = 11092-6) Whether the patient has symptoms related to condition of interest (test code = 91336-6) Patient was hospitalized because of this condition (test code = 36893-4) Whether the patient was admitted to intensive care unit (ICU) for condition of interest (test code = 10767-9) Whether patient resides in a congregate care setting (test code = 15989-4) POCT GLUCOSE (AUTOMATED)2021-11-02 22:57:12 Test Item Value Reference Range Interpretation Comments POCT GLU (test code = 9367782251) 224 mg/dL 70-110 H Lab Interpretation (test code = Abnormal 73829-4) [facility] LEAD ROUTINE [id number] 22:37:57 Test Item Value Reference Range Interpretation Comments Lab Interpretation (test code = Abnormal 69030-8) [facility] GLUCOSE (AUTOMATED)2021-11-02 17:43:02 Test Item Value Reference Range Interpretation Comments POCT GLU (test code = 6727907432) 264 mg/dL 70-110 H Lab Interpretation (test code = Abnormal 71201-2) [facility] StationTR[facility] [id number] 15:07:47 Test Item Value Reference Interpretation Comments Range TROPONIN I (test 0.064 ng/mL See_Comment H [Automated code = 1359407683) message] The system which generated this result [...] biotin. Lab Interpretation Abnormal (test code = 28368-9) [facility] StationN-TERMINAL [id number] 15:04:26 Test Item Value Reference Range Interpretation Comments NT-proBNP (test code 800 pg/mL See_Comment H [Autom ated = 1395139048) message] The system which generated this result transmitted reference range : <=450. The reference range was not used to interpret this result as normal/abnormal . ALYSSA (test code = ALYSSA) Biotin has been reported to cause a negative bias, interpret results relative to patient's use of biotin. Lab Interpretation Abnormal (test code = 57652-3) [facility] GLUCOSE (AUTOMATED)2021-11-02 13:36:38 Test Item Value Reference Range Interpretation Comments POCT GLU (test code = 3435633707) 185 mg/dL 70-110 H Lab Interpretation (test code = Abnormal 61004-9) [facility] (NA, K, CL, CO2, GLUCOSE, BUN, CREATININE, CA)2021-11-02 10:26:43 Test Item Value Reference Range Interpretation Comments NA (test code = 136 mmol/L 135-145 5487888540) K (test code = 4.0 mmol/L 3.5-5.0 1864199319) CL (test code = 99 mmol/L 98-108 8051319860) CO2 TOTAL (test code = 27 mmol/L 23-31 5166170008) AGAP (test code = 2-16 4299917301) BUN (test code = 30 mg/dL 7-23 H 1860236373) GLUCOSE (test code = 165 mg/dL 70-110 H 0090731457) CREATININE (test code = 1.42 mg/dL 0.60-1.25 H 5842728270) CALCIUM (test code = 9.5 mg/dL 8.6-10.6 5120634719) eGFR (test code = mL/min/1.73m2 1150956871) ALYSSA (test code = ALYSSA) Association of [...] tests). Lab Interpretation Abnormal (test code = 95344-6) [facility] WITH [id number] 10:01:58 Test Item Value Reference Range Interpretation [...] RDW-SD (test code = 39.8 fL 38.5-51.6 45014-9) RDW-CV (test code = 11.5 % 12.1-15.4 L 788-0) PLT (test code = See_Comment [Automated 777-3) message] The sy stem which generated this result transmitted reference range : 150 - 328 10*3/ ?L. The reference r corey was not used to interpret this result as normal/abnormal . MPV (test code = 10.5 fL 9.8-13.0 10754-5) NRBC/100 WBC (test See_Comment [Automat ed code = 1611806688) message] The system which generated this result transmitted reference range : 0.0 - 10.0 /100 WBCs. The refer ence range was not u sed to interpret th is result as normal/abnormal . NRBC x10^3 (test code <0.01 See_Comment [Auto mated = 8610548965) message] The s ystem which generated this result transmitted reference range : 10*3/?L. The reference range was not used to interpret this result as normal/abnormal . GRAN MAT (NEUT) % 59.3 % (test code = 770-8) IMM GRAN % (test code 0.30 % = 3988657166) LYMPH % (test code = 25.0 % 736-9) MONO % (test code = 10.7 % 5905-5) EOS % (test code = 4.1 % 713-8) BASO % (test code = 0.6 % 706-2) GRAN MAT x10^3(ANC) 4.19 10*3/uL 1.99-6.95 (test code = 3734216598) IMM GRAN x10^3 (test <0.03 0.00-0.06 code = 6842367708) LYMPH x10^3 (test code 1.77 10*3/uL 1.09-3.23 = 731-0) MONO x10^3 (test code 0.76 10*3/uL 0.36-1.02 = 742-7) EOS x10^3 (test code = 0.29 10*3/uL 0.06-0.53 711-2) BASO x10^3 (test code 0.04 10*3/uL 0.01-0.09 = 704-7) Lab Interpretation Abnormal (test code = 41610-4) [facility] GLUCOSE (AUTOMATED)2021-11-02 01:29:56 Test Item Value Reference Range Interpretation Comments POCT GLU (test code = 8909913170) 167 mg/dL 70-110 H Lab Interpretation (test code = Abnormal 23758-7) [facility] GLUCOSE (AUTOMATED)2021-11-01 17:40:19 Test Item Value Reference Range Interpretation Comments POCT GLU (test code = 0082235290) 193 mg/dL 70-110 H Lab Interpretation (test code = Abnormal 08984-7) [facility] GLUCOSE (AUTOMATED)2021-11-01 13:44:28 Test Item Value Reference Range Interpretation Comments POCT GLU (test code = 2676151656) 200 mg/dL 70-110 H Lab Interpretation (test code = Abnormal 11144-9) [facility] GLUCOSE (AUTOMATED)2021-11-01 01:38:43 Test Item Value Reference Range Interpretation Comments POCT GLU (test code = 0426540033) 177 mg/dL 70-110 H Lab Interpretation (test code = Abnormal 48910-7) [facility] GLUCOSE (AUTOMATED)2021-10-31 22:39:43 Test Item Value Reference Range Interpretation Comments POCT GLU (test code = 4312887703) 174 mg/dL 70-110 H Lab Interpretation (test code = Abnormal 59916-5) [facility] GLUCOSE (AUTOMATED)2021-10-31 17:40:22 Test Item Value Reference Range Interpretation Comments POCT GLU (test code = 8235354935) 224 mg/dL 70-110 H Lab Interpretation (test code = Abnormal 51627-8) [facility] StationTROP[facility]IN [id number] 17:14:58 Test Item Value Reference Interpretation Comments Range TROPONIN I (test 0.080 ng/mL See_Comment H [Automated code = 1156726920) message] The system which generated this result [...] biotin. Lab Interpretation Abnormal (test code = 90082-4) [facility] StationN-TERMINAL [id number] 15:14:03 Test Item Value Reference Range Interpretation Comments NT-proBNP (test code 474 pg/mL See_Comment H [Autom ated = 9663593340) message] The system which generated this result transmitted reference range : <=450. The reference range was not used to interpret this result as normal/abnormal . ALYSSA (test code = ALYSSA) Biotin has been reported to cause a negative bias, interpret results relative to patient's use of biotin. Lab Interpretation Abnormal (test code = 36302-9) [facility] StationLIPID PANEL (65959)(TOTAL CHOLESTEROL, TRIGLYCERIDES, HDL)2021-10-31 15:05:19 Test Item Value Reference Range Interpretation Comments CHOL (test code = 101 mg/dL 120-200 L 8087380589) HDL (test code = 36 mg/dL >40 L 2466865186) HDLC RATIO (test code = See_Comment [Au tomated message] 8358753478) The system [employer] generated this result transmit diamante reference range : <=5.0. The refe rence range was not u sed to interpret th is result as normal/abnormal . TRIG (test code = 143 mg/dL 30-170 8655668382) LDL CHOL (test code = 36 mg/dL See_Comment [Auto mated message] 54474-7) The system [employer] generated this result transmit diamante reference range : <=160. The refe rence range was not u sed to interpret th is result as normal/abnormal . VLDL (test code = 29 mg/dL 5-60 7641628119) Lab Interpretation (test Abnormal code = 82153-7) [facility] StationPO[facility] GLUCOSE (AUTOMATED)2021-10-31 13:44:00 Test Item Value Reference Range Interpretation Comments POCT GLU (test code = 9919385847) 150 mg/dL 70-110 H Lab Interpretation (test code = Abnormal 21078-3) [facility] StationCB with [id number] 11:13:14 Test Item Value Reference Range Interpretation Comments WBC (test code = See_Comment [Automated 8490-2) message] The sy stem which generated this [...] RDW-SD (test code = 39.9 fL 38.5-51.6 02316-2) RDW-CV (test code = 11.8 % 12.1-15.4 L 788-0) PLT (test code = See_Comment [Automated 777-3) message] The sy stem which generated this result transmitted reference range : 150 - 328 10*3/ ?L. The reference r corey was not used to interpret this result as normal/abnormal . MPV (test code = 11.0 fL 9.8-13.0 08990-9) NRBC/100 WBC (test See_Comment [Automat ed code = 9485261820) message] The system which generated this result transmitted reference range : 0.0 - 10.0 /100 WBCs. The refer ence range was not u sed to interpret th is result as normal/abnormal . NRBC x10^3 (test code <0.01 See_Comment [Auto mated = 6235844376) message] The s ystem which generated this result transmitted reference range : 10*3/?L. The reference range was not used to interpret this result as normal/abnormal . GRAN MAT (NEUT) % 64.3 % (test code = 770-8) IMM GRAN % (test code 0.30 % = 3930327828) LYMPH % (test code = 21.7 % 736-9) MONO % (test code = 10.0 % 5905-5) EOS % (test code = 3.1 % 713-8) BASO % (test code = 0.6 % 706-2) GRAN MAT x10^3(ANC) 4.35 10*3/uL 1.99-6.95 (test code = 4931982629) IMM GRAN x10^3 (test <0.03 0.00-0.06 code = 2655287265) LYMPH x10^3 (test code 1.47 10*3/uL 1.09-3.23 = 731-0) MONO x10^3 (test code 0.68 10*3/uL 0.36-1.02 = 742-7) EOS x10^3 (test code = 0.21 10*3/uL 0.06-0.53 711-2) BASO x10^3 (test code 0.04 10*3/uL 0.01-0.09 = 704-7) Lab Interpretation Abnormal (test code = 76753-4) [facility] StationTR[facility]IN [id number] 11:09:53 Test Item Value Reference Interpretation Comments Range TROPONIN I (test 0.101 ng/mL See_Comment H [Automated code = 7822845210) message] The system which generated this result [...] biotin. Lab Interpretation Abnormal (test code = 00281-0) [facility] (NA, K, CL, CO2, GLUCOSE, BUN, CREATININE, CA)2021-10-31 10:59:31 Test Item Value Reference Range Interpretation Comments NA (test code = 139 mmol/L 135-145 0380115621) K (test code = 4.1 mmol/L 3.5-5.0 9949785915) CL (test code = 103 mmol/L 98-108 1896078965) CO2 TOTAL (test code = 28 mmol/L 23-31 1230038847) AGAP (test code = 2-16 5375648441) BUN (test code = 43 mg/dL 7-23 H 9555713717) GLUCOSE (test code = 165 mg/dL 70-110 H 6647763026) CREATININE (test code = 1.68 mg/dL 0.60-1.25 H 2958239667) CALCIUM (test code = 9.6 mg/dL 8.6-10.6 0274439944) eGFR (test code = mL/min/1.73m2 5994077202) ALYSSA (test code = ALYSSA) Association of [...] tests). Lab Interpretation Abnormal (test code = 16322-4) [facility] StationGlycosylated Hemoglobin (A1C)2021-10-31 09:13:40 Test Item Value Reference Range Interpretation Comments HGB A1C (test code = 6.8 % 4.0-5.7 H 4548-4) ALYSSA (test code = ALYSSA) Reference RangesNormal: <5.7%Prediabetes: 5.7 - 6.4%Diabetes: > 6.5% Lab Interpretation (test Abnormal code = 91832-1) [facility] [id number] 06:48:18 Test Item Value Reference Interpretation Comments Range TROPONIN I (test 0.082 ng/mL See_Comment H [Automated code = 4354406186) message] The system which generated this result [...] biotin. Lab Interpretation Abnormal (test code = 53796-0) [facility] [id number] 02:09:48 Test Item Value Reference Interpretation Comments Range TROPONIN I (test 0.067 ng/mL See_Comment H [Automated code = 4897697136) message] The system which generated this result [...] biotin. Lab Interpretation Abnormal (test code = 88475-3) [facility] StationN-TERMINAL [id number] 02:06:31 Test Item Value Reference Range Interpretation Comments NT-proBNP (test code 318 pg/mL See_Comment [Autom ated = 1430727946) message] The system which generated this result transmitted reference range : <=450. The reference range was not used to interpret this result as normal/abnormal . ALYSSA (test code = ALYSSA) Biotin has been reported to cause a negative bias, interpret results relative to patient's use of biotin. Lab Interpretation Normal (test code = 34136-1) [facility] ([facility]01[facility]2021-[facility]-31 01:58:28 Test Item Value Reference Range Interpretation Comments NA (test code = 137 mmol/L 135-145 3008897861) K (test code = 4.1 mmol/L 3.5-5.0 8176223412) CL (test code = 101 mmol/L 98-108 3771363764) CO2 TOTAL (test code = 26 mmol/L 23-31 0973058854) AGAP (test code = 2-16 4173858421) BUN (test code = 46 mg/dL 7-23 H 2396332559) GLUCOSE (test code = 213 mg/dL 70-110 H 5825650611) CREATININE (test code = 1.96 mg/dL 0.60-1.25 H 3014300167) TOTAL BILI (test code = 0.9 mg/dL 0.1-1.4 1697891987) CALCIUM (test code = 9.7 mg/dL 8.6-10.6 8392389461) T PROTEIN (test code = 7.0 g/dL 6.3-8.2 0730324383) ALBUMIN (test code = 4.3 g/dL 3.5-5.0 2430788538) ALK PHOS (test code = 58 U/L 34-122 9417841238) ALTv (test code = 20 U/L 5-50 1742-6) AST(SGOT) (test code = 27 U/L 13-40 2738740040) eGFR (test code = mL/min/1.73m2 2618972861) ALYSSA (test code = ALYSSA) Association of [...] tests). Lab Interpretation Abnormal (test code = 42516-2) [facility] StationLIPASE, [id number] 01:57:48 Test Item Value Reference Range Interpretation Comments LIPASE (test code = 6397210372) 330 U/L 0-220 H Lab Interpretation (test code = Abnormal 16872-8) [facility] StationaPTT2021-12-16 01:55:04 Test Item Value Reference Range Interpretation Comments APTT Patient (test See_Comment [Automat ed code = 3173-2) message] The system which generated this result transmitted reference range : 23 - 38 Seconds . The reference range was not used to interpr et this result as normal/abnormal . ALYSSA (test code = ALYSSA) The [facility] patient population mean normal value for aPTT is 30 seconds. Lab Interpretation Normal (test code = 79441-0) [facility] StationPROTHROMBIN TIME / [id number] 01:53:08 Test Item Value Reference Range Interpretation [...] tions. Lab Interpretation (test Normal code = 50079-1) [facility] WITH [id number] 01:45:44 Test Item Value Reference Range Interpretation Comments WBC (test code = See_Comment [Automated 5390-2) message] The sy stem which generated this [...] RDW-SD (test code = 39.1 fL 38.5-51.6 09005-3) RDW-CV (test code = 11.6 % 12.1-15.4 L 788-0) PLT (test code = See_Comment [Automated 777-3) message] The sy stem which generated this result transmitted reference range : 150 - 328 10*3/ ?L. The reference r corey was not used to interpret this result as normal/abnormal . MPV (test code = 10.4 fL 9.8-13.0 15172-5) NRBC/100 WBC (test See_Comment [Automat ed code = 3717537588) message] The system which generated this result transmitted reference range : 0.0 - 10.0 /100 WBCs. The refer ence range was not u sed to interpret th is result as normal/abnormal . NRBC x10^3 (test code <0.01 See_Comment [Auto mated = 3837303831) message] The s ystem which generated this result transmitted reference range : 10*3/?L. The reference range was not used to interpret this result as normal/abnormal . GRAN MAT (NEUT) % 62.1 % (test code = 770-8) IMM GRAN % (test code 0.30 % = 7685130667) LYMPH % (test code = 23.4 % 736-9) MONO % (test code = 10.8 % 5905-5) EOS % (test code = 2.9 % 713-8) BASO % (test code = 0.5 % 706-2) GRAN MAT x10^3(ANC) 4.14 10*3/uL 1.99-6.95 (test code = 6898482987) IMM GRAN x10^3 (test <0.03 0.00-0.06 code = 2605951893) LYMPH x10^3 (test code 1.56 10*3/uL 1.09-3.23 = 731-0) MONO x10^3 (test code 0.72 10*3/uL 0.36-1.02 = 742-7) EOS x10^3 (test code = 0.19 10*3/uL 0.06-0.53 711-2) BASO x10^3 (test code 0.03 10*3/uL 0.01-0.09 = 704-7) Lab Interpretation Abnormal (test code = 62568-8) [facility] StationURINALYSIS2021-06-10 21:15:48 Test Item Value Reference Range Interpretation Comments APPEARANCE (test code = Clear Clear 2501496351) COLOR (test code = Yellow Yellow 3191694859) PH (test code = 4.8-8.0 6758751676) SP GRAVITY (test code = 1.003-1.030 1517229127) GLU U QUAL (test code = 50 mg/dL Normal A 8860505266) BLOOD (test code = Negative Negative INTERFERE NCE FROM 2340665489) ASCORBIC ACID M AY CAUSE FALSE NEG ATIVE RESULT KETONES (test code = Negative Negative 5160103003) PROTEIN (test code = Negative Negative 2887-8) UROBILIN (test code = Normal Normal 0194679712) BILIRUBIN (test code = Negative Negative 9339842612) NITRITE (test code = Negative Negative 1955980726) LEUK JESS (test code = Negative Negative 4418190158) RBC/HPF (test code = See_Comment [Autom ated message] 7096875237) The system [employer] generated this result transmitted ref erence range: 0 - 3 HP F. The reference range was not used to int erpret this result as normal/abnormal . WBC/HPF (test code = See_Comment [Autom ated message] 6943169728) The system [employer] generated this result transmitted ref erence range: 0 - 5 HP F. The reference range was not used to int erpret this result as normal/abnormal . BACTERIA (test code = Negative Negative 6883942260) SQ EPITH (test code = <1 See_Comment [Auto mated message] 9095465242) The system [employer] generated this result transmitted ref erence range: <=2 HPF. The reference range was not used to int erpret this result as normal/abnormal . HYAL CAST (test code = See_Comment [Aut omated message] 0373503963) The system [employer] generated this result transmitted ref erence range: <=2 LPF. The reference range was not used to int erpret this result as normal/abnormal . Lab Interpretation (test Abnormal code = 60838-6) [facility] StationXR LUMBAR SPINE 2 [id number] 20:30:53 Impression: Postoperative changes. Degenerative changes. No [...] signedby Benton Morales MD at 04/25/2021 3:30 PMB[facility] StationXR HIPS 2 VW [id number] 20:24:52Impression: Postoperative changes. Degenerative changes. No acute [...] clinicalconcern MRI is available.End of Report.RL: [facility] Metabolic Panel (NA, K, CL, CO2, GLUCOSE, BUN, CREATININE, CA)2020-05-24 14:15:00 Test Item Value Reference Range Interpretation Comments NA (test code = 139 mmol/L 135-145 8053239820) K (test code = 4.1 mmol/L 3.5-5 7561294402) CL (test code = 104 mmol/L 98-108 2183337985) CO2 TOTAL (test code = 26 mmol/L 23-31 1763961877) AGAP (test code = 2-16 1852813424) BUN (test code = 22 mg/dL 7-23 4594337973) GLUCOSE (test code = 203 mg/dL 70-110 H 3366521507) CREATININE (test code = 1.40 mg/dL 0.6-1.25 H 4353102370) CALCIUM (test code = 9.1 mg/dL 8.6-10.6 4817953598) eGFR Calculation mL/min/1.73m2 (Non-) (test code = 1338359519) eGFR Calculation mL/min/1.73m2 () (test code = 0073157377) ALYSSA (test code = ALYSSA) Association of [...] tests). Lab Interpretation Abnormal (test code = 96075-2) [facility] StationHepatic Function Panel (ALB, T.PRO, BILI T, BU/BC, ALT, AST, ALK PHOS)2020-05-24 13:54:00 Test Item Value Reference Range Interpretation Comments TOTAL BILI (test code = 9685873658) 0.9 mg/dL 0.1-1.1 BILI UNCON (test code = 2682286561) 1.0 mg/dL 0.1-1.1 BILI CONJ (test code = 9704724507) 0.0 mg/dL 0-0.3 T PROTEIN (test code = 4411563896) 7.0 g/dL 6.3-8.2 ALBUMIN (test code = 3544425458) 4.2 g/dL 3.5-5 ALK PHOS (test code = 4574916034) 49 U/L 34-122 ALTv (test code = 1742-6) 17 U/L 5-50 AST(SGOT) (test code = 7829878882) 25 U/L 13-40 Lab Interpretation (test code = Normal 26953-0) [facility] StationaPTT2020-07-09 13:32:00 Test Item Value Reference Range Interpretation Comments APTT Patient (test See_Comment [Automat ed code = 3173-2) message] The system which generated this result transmitted reference range : 23 - 38 Seconds . The reference range was not used to interpr et this result as normal/abnormal . ALYSSA (test code = ALYSSA) The [facility] patient population mean normal value for aPTT is 30 seconds. Lab Interpretation Normal (test code = 01980-0) [facility] StationProthrombin Time (PT) / [id number] 13:30:00 Test Item Value Reference Range Interpretation [...] tions. Lab Interpretation (test Normal code = 10576-5) [facility] StationCB WITH [id number] 13:27:00 Test Item Value Reference Range Interpretation [...] RDW-SD (test code = 42.6 fL 38.5-51.6 98340-9) RDW-CV (test code = 12.3 % 12.1-15.4 788-0) PLT (test code = See_Comment [Automated 777-3) message] The sy stem which generated this result transmitted reference range : 150 - 328 10*3/ ?L. The reference r corey was not used to interpret this result as normal/abnormal . MPV (test code = 9.9 fL 9.8-13 44856-3) NRBC/100 WBC (test See_Comment [Automat ed code = 6830668430) message] The system which generated this result transmitted reference range : 0.0 - 10.0 /100 WBCs. The refer ence range was not u sed to interpret th is result as normal/abnormal . NRBC x10^3 (test code <0.01 See_Comment [Auto mated = [id number]) message] The s ystem which generated this result transmitted reference range : 10*3/?L. The reference range was not used to interpret this result as normal/abnormal . GRAN MAT (NEUT) % 55.1 % (test code = 770-8) IMM GRAN % (test code 0.20 % = 5343947121) LYMPH % (test code = 28.8 % 736-9) MONO % (test code = 11.3 % 5905-5) EOS % (test code = 3.5 % 713-8) BASO % (test code = 1.1 % 706-2) GRAN MAT x10^3(ANC) 3.11 10*3/uL 1.99-6.95 (test code = 9623467047) IMM GRAN x10^3 (test <0.03 0-0.06 code = 4274086046) LYMPH x10^3 (test code 1.63 10*3/uL 1.09-3.23 = 731-0) MONO x10^3 (test code 0.64 10*3/uL 0.36-1.02 = 742-7) EOS x10^3 (test code = 0.20 10*3/uL 0.06-0.53 711-2) BASO x10^3 (test code 0.06 10*3/uL 0.01-0.09 = 704-7) Lab Interpretation Abnormal (test code = 97199-1) [facility]W [id number] 13:25:58HISTORY: ?Pain. FINDINGS: AP, lateral, oblique views [...] No acute fracture or dislocation in left ankle.[facility] GLUCOSE (AUTOMATED)2020-03-23 22:34:00 Test Item Value Reference Range Interpretation Comments POCT GLU (test code = 1730583645) 173 mg/dL 70-110 H Lab Interpretation (test code = Abnormal 19522-7) [facility] GLUCOSE (AUTOMATED)2020-03-23 22:34:00 Test Item Value Reference Range Interpretation Comments POCT GLU (test code = 8981045184) 173 mg/dL 70-110 H Lab Interpretation (test code = Abnormal 71351-5) [facility] GLUCOSE (AUTOMATED)2020-03-23 18:12:00 Test Item Value Reference Range Interpretation Comments POCT GLU (test code = 165 mg/dL 70-110 H Notifi ed Provider [id number]) Lab Interpretation (test Abnormal code = 19433-7) [facility] GLUCOSE (AUTOMATED)2020-03-23 18:12:00 Test Item Value Reference Range Interpretation Comments POCT GLU (test code = 165 mg/dL 70-110 H Notifi ed Provider [id number]) Lab Interpretation (test Abnormal code = 32438-0) [facility] GLUCOSE (AUTOMATED)2020-03-23 15:04:00 Test Item Value Reference Range Interpretation Comments POCT GLU (test code = 114 mg/dL 70-110 H Notifi ed Provider [id number]) Lab Interpretation (test Abnormal code = 06602-5) [facility] GL[facility]SE [facility]2020-03-23 15:04:00 Test Item Value Reference Range Interpretation Comments POCT GLU (test code = 114 mg/dL 70-110 H Notifi ed Provider [id number]) Lab Interpretation (test Abnormal code = 70460-4) [facility] StationFERRITIN [id number] 13:23:00 Test Item Value Reference Range Interpretation Comments FERRITIN (test code = 139.0 ng/mL 18-464 2968364859) ALYSSA (test code = ALYSSA) Biotin has been reported to cause a negative bias, interpret results relative to patient's use of biotin. Lab Interpretation (test Normal code = 66533-2) [facility] StationFERRITIN [id number] 13:23:00 Test Item Value Reference Range Interpretation Comments FERRITIN (test code = 139.0 ng/mL 18-464 8260469840) ALYSSA (test code = ALYSSA) Biotin has been reported to cause a negative bias, interpret results relative to patient's use of biotin. Lab Interpretation (test Normal code = 13987-7) [facility] [id number] 12:53:00 Test Item Value Reference Range Interpretation Comments IRON (test code = 2578869910) 87 ug/dL 50-160 TIBC (test code = 0889984828) 385 ug/dL 250-410 % FE SAT (test code = 2591114732) 23 % 20-50 Lab Interpretation (test code = Normal 30817-9) [facility] [id number] 12:53:00 Test Item Value Reference Range Interpretation Comments IRON (test code = 5509641670) 87 ug/dL 50-160 TIBC (test code = 4946235409) 385 ug/dL 250-410 % FE SAT (test code = 5142208861) 23 % 20-50 Lab Interpretation (test code = Normal 83276-1) [facility]aP[facility]2020-[facility]-08 12:07:00 Test Item Value Reference Range Interpretation Comments APTT Patient (test code See_Comment HH [Au tomated message] = 3173-2) The system [employer] generated this result transmitted ref erence range: 26 - 36 Seconds. The reference range was not used to int erpret this result as normal/abnormal . Lab Interpretation (test Abnormal code = 11044-4) [facility]2020-05-08 12:07:00 Test Item Value Reference Range Interpretation Comments APTT Patient (test code See_Comment HH [Au tomated message] = 3173-2) The system [employer] generated this result transmitted ref erence range: 26 - 36 Seconds. The reference range was not used to int erpret this result as normal/abnormal . Lab Interpretation (test Abnormal code = 74317-6) [facility] [id number] 11:57:00 Test Item Value Reference Range Interpretation Comments TROPONIN I (test 0.046 ng/mL See_Comment H [Automated code = 7346891612) message] The system which generated this result [...] ? Lab Interpretation Abnormal (test code = 05901-9) [facility] [id number] 11:57:00 Test Item Value Reference Range Interpretation Comments TROPONIN I (test 0.046 ng/mL See_Comment H [Automated code = 1208221872) message] The system which generated this result [...] ? Lab Interpretation Abnormal (test code = 37806-2) [facility] MET[facility]OLIC PANEL (NA, K, CL, CO2, GLUCOSE, BUN, CREATININE, CA)2020-03-23 11:52:00 Test Item Value Reference Range Interpretation Comments NA (test code = 137 mmol/L 135-145 9589158333) K (test code = 4.1 mmol/L 3.5-5 3289674004) CL (test code = 102 mmol/L 98-108 0824004959) CO2 TOTAL (test code = 26 mmol/L 23-31 2764567180) AGAP (test code = 2-16 2455487523) BUN (test code = 18 mg/dL 7-23 1627194623) GLUCOSE (test code = 119 mg/dL 70-110 H 5901822375) CREATININE (test code = 1.14 mg/dL 0.6-1.25 7908204215) CALCIUM (test code = 9.1 mg/dL 8.6-10.6 9242021254) eGFR Calculation mL/min/1.73m2 (Non-) (test code = 9932382113) eGFR Calculation mL/min/1.73m2 () (test code = 2474264748) ALYSSA (test code = ALYSSA) Association of [...] tests). Lab Interpretation Abnormal (test code = 36108-8) [facility] StationMAGN[facility]UM2020-05-08 11:52:00 Test Item Value Reference Range Interpretation Comments MAGNESIUM (test code = 1152684349) 2.2 mg/dL 1.7-2.4 Lab Interpretation (test code = Normal 64049-6) [facility] MET[facility]OLIC PANEL (NA, K, CL, CO2, GLUCOSE, BUN, CREATININE, CA)2020-03-23 11:52:00 Test Item Value Reference Range Interpretation Comments NA (test code = 137 mmol/L 135-145 8975569112) K (test code = 4.1 mmol/L 3.5-5 5327488395) CL (test code = 102 mmol/L 98-108 4574395504) CO2 TOTAL (test code = 26 mmol/L 23-31 1854194340) AGAP (test code = 2-16 9939290345) BUN (test code = 18 mg/dL 7-23 7215908941) GLUCOSE (test code = 119 mg/dL 70-110 H 9336765275) CREATININE (test code = 1.14 mg/dL 0.6-1.25 1971501810) CALCIUM (test code = 9.1 mg/dL 8.6-10.6 3938808116) eGFR Calculation mL/min/1.73m2 (Non-) (test code = 5905266576) eGFR Calculation mL/min/1.73m2 () (test code = 9839001999) ALYSSA (test code = ALYSSA) Association of [...] tests). Lab Interpretation Abnormal (test code = 81497-2) [facility] StationMAGNESIUM2020-05-08 11:52:00 Test Item Value Reference Range Interpretation Comments MAGNESIUM (test code = 8711743493) 2.2 mg/dL 1.7-2.4 Lab Interpretation (test code = Normal 80995-9) [facility] StationProthrombin Time (PT) / [id number] 11:36:00 Test Item Value Reference Range Interpretation Comments PROTIME PATIENT (test See_Comment [Auto mated message] code = 5964-2) The system [employer] generated this result transmitted ref erence range: 10.1 - 1 2.6 Seconds. The re ference range was not u sed to interpret this result as normal/abnor mal. INR (test code = 6301-6) Nor mal INR <1.1; Warfarin Therap eutic range 2.0 to 3. 0 or 2.5 to 3.5, dep ending upon the indica tions. Lab Interpretation (test Normal code = 10331-6) [facility] StationProthrombin Time (PT) / [id number] 11:36:00 Test Item Value Reference Range Interpretation Comments PROTIME PATIENT (test See_Comment [Auto mated message] code = 5964-2) The system [employer] generated this result transmitted ref erence range: 10.1 - 1 2.6 Seconds. The re ference range was not u sed to interpret this result as normal/abnor mal. INR (test code = 6301-6) Nor mal INR <1.1; Warfarin Therap eutic range 2.0 to 3. 0 or 2.5 to 3.5, dep ending upon the indica tions. Lab Interpretation (test Normal code = 64071-7) [facility] StationTROPONIN [id number] 06:38:00 Test Item Value Reference Range Interpretation Comments TROPONIN I (test 0.045 ng/mL See_Comment H [Automated code = 5291345631) message] The system which generated this result [...] ? Lab Interpretation Abnormal (test code = 51214-6) [facility] [id number] 06:38:00 Test Item Value Reference Range Interpretation Comments TROPONIN I (test 0.045 ng/mL See_Comment H [Automated code = 0481941478) message] The system which generated this result [...] ? Lab Interpretation Abnormal (test code = 99188-7) [facility] METABOLIC PANEL (NA, K, CL, CO2, GLUCOSE, BUN, CREATININE, CA)2020-03-23 06:29:00 Test Item Value Reference Range Interpretation Comments NA (test code = 137 mmol/L 135-145 6196994932) K (test code = 3.6 mmol/L 3.5-5 6479100282) CL (test code = 101 mmol/L 98-108 1367151666) CO2 TOTAL (test code = 27 mmol/L 23-31 5689919072) AGAP (test code = 2-16 1531012919) BUN (test code = 19 mg/dL 7-23 8102254877) GLUCOSE (test code = 153 mg/dL 70-110 H 5959474009) CREATININE (test code = 1.22 mg/dL 0.6-1.25 7445473911) CALCIUM (test code = 8.9 mg/dL 8.6-10.6 3054883411) eGFR Calculation mL/min/1.73m2 (Non-) (test code = 9692145724) eGFR Calculation mL/min/1.73m2 () (test code = 3296314441) ALYSSA (test code = ALYSSA) Association of [...] tests). Lab Interpretation Abnormal (test code = 45127-8) [facility] StationMAGNESIUM2020-05-08 06:29:00 Test Item Value Reference Range Interpretation Comments MAGNESIUM (test code = 1591930667) 1.7 mg/dL 1.7-2.4 Lab Interpretation (test code = Normal 10383-5) [facility] StationLIPID PANEL (81007)(TOTAL CHOLESTEROL, TRIGLYCERIDES, HDL)2020-03-23 06:29:00 Test Item Value Reference Range Interpretation Comments CHOL (test code = 106 mg/dL 120-200 L 9633728578) HDL (test code = 46 mg/dL >40 7519759615) HDLC RATIO (test code = See_Comment [Au tomated message] 1220429862) The system [employer] generated this result transmit diamante reference range : <=5.0. The refe rence range was not u sed to interpret th is result as normal/abnormal . TRIG (test code = 74 mg/dL 30-170 4433309238) LDL CHOL (test code = 45 mg/dL See_Comment [Auto mated message] 62010-8) The system [employer] generated this result transmit diamante reference range : <=160. The refe rence range was not u sed to interpret th is result as normal/abnormal . VLDL (test code = 15 mg/dL 5-60 3851581082) Lab Interpretation (test Abnormal code = 17656-5) [facility]BAT[facility] (NA, K, CL, CO2, GLUCOSE, BUN, CREATININE, CA)2020-03-23 06:29:00 Test Item Value Reference Range Interpretation Comments NA (test code = 137 mmol/L 135-145 1818026089) K (test code = 3.6 mmol/L 3.5-5 5914506251) CL (test code = 101 mmol/L 98-108 3837834468) CO2 TOTAL (test code = 27 mmol/L 23-31 7737559182) AGAP (test code = 2-16 2626053342) BUN (test code = 19 mg/dL 7-23 3999345285) GLUCOSE (test code = 153 mg/dL 70-110 H 0875411344) CREATININE (test code = 1.22 mg/dL 0.6-1.25 7719531805) CALCIUM (test code = 8.9 mg/dL 8.6-10.6 9987042414) eGFR Calculation mL/min/1.73m2 (Non-) (test code = 2963893667) eGFR Calculation mL/min/1.73m2 () (test code = 6895748008) ALYSSA (test code = ALYSSA) Association of [...] tests). Lab Interpretation Abnormal (test code = 50673-2) [facility] StationMAGNESIUM2020-05-08 06:29:00 Test Item Value Reference Range Interpretation Comments MAGNESIUM (test code = 4265293626) 1.7 mg/dL 1.7-2.4 Lab Interpretation (test code = Normal 34831-4) [facility] StationLIPID PANEL (45789)(TOTAL CHOLESTEROL, TRIGLYCERIDES, HDL)2020-03-23 06:29:00 Test Item Value Reference Range Interpretation Comments CHOL (test code = 106 mg/dL 120-200 L 1938997659) HDL (test code = 46 mg/dL >40 9448236094) HDLC RATIO (test code = See_Comment [Au tomated message] 6803741870) The system [employer] generated this result transmit diamante reference range : <=5.0. The refe rence range was not u sed to interpret th is result as normal/abnormal . TRIG (test code = 74 mg/dL 30-170 9352836256) LDL CHOL (test code = 45 mg/dL See_Comment [Auto mated message] 90050-6) The system [employer] generated this result transmit diamante reference range : <=160. The refe rence range was not u sed to interpret th is result as normal/abnormal . VLDL (test code = 15 mg/dL 5-60 7951379221) Lab Interpretation (test Abnormal code = 69089-3) [facility] StationaPTT2020-05-08 03:18:00 Test Item Value Reference Range Interpretation Comments APTT Patient (test code = See_Comment [ Automated message] 3173-2) The system [employer] generated this result transmitted ref erence range: 26 - 36 Seconds. The re ference range was not u sed to interpret this result as normal/abnor mal. Lab Interpretation (test Normal code = 40175-7) [facility] StationaPTT2020-05-08 03:18:00 Test Item Value Reference Range Interpretation Comments APTT Patient (test code = See_Comment [ Automated message] 3173-2) The system [employer] generated this result transmitted ref erence range: 26 - 36 Seconds. The re ference range was not u sed to interpret this result as normal/abnor mal. Lab Interpretation (test Normal code = 47482-4) [facility] StationPROTHROMBIN TIME / [id number] 03:07:00 Test Item Value Reference Range Interpretation Comments PROTIME PATIENT (test See_Comment [Auto mated message] code = 5964-2) The system [employer] generated this result transmitted ref erence range: 10.1 - 1 2.6 Seconds. The re ference range was not u sed to interpret this result as normal/abnor mal. INR (test code = 6301-6) Nor mal INR <1.1; Warfarin Therap eutic range 2.0 to 3. 0 or 2.5 to 3.5, dep ending upon the indica tions. Lab Interpretation (test Normal code = 95184-4) [facility] StationPROTHROMBIN TIME / [id number] 03:07:00 Test Item Value Reference Range Interpretation Comments PROTIME PATIENT (test See_Comment [Auto mated message] code = 5964-2) The system [employer] generated this result transmitted ref erence range: 10.1 - 1 2.6 Seconds. The re ference range was not u sed to interpret this result as normal/abnor mal. INR (test code = 6301-6) Nor mal INR <1.1; Warfarin Therap eutic range 2.0 to 3. 0 or 2.5 to 3.5, dep ending upon the indica tions. Lab Interpretation (test Normal code = 43978-0) [facility] StationXR CHEST 2 [id number] 02:23:32 No acute cardiopulmonary process. Preliminary Report [...] abovereport.[facility] StationXR CHEST 2 VW 2020-03-23 02:23:32 No acute [...] this study and agree with the abovereport. [facility] StationCORONAVIRUS COVID-19 [id number] 01:23:00 Test Item Value Reference Range Interpretation Comments SARS-CoV-2 (test code = Not Detected Not Detected 06762-7) ALYSSA (test code = ALYSSA) ID NOW COVID-19 Assay is an isothermal nucleic acid amplification test intended for the qualitative detection of nucleic acid from SARS-CoV-2 viral RNA in nasopharyngeal ([employer]) specimens. It is used under Emergency Use [...] indicated. Lab Interpretation Normal (test code = 76621-5) [facility] StationCORONAVIRUS COVID-19 [id number] 01:23:00 Test Item Value Reference Range Interpretation Comments SARS-CoV-2 (test code = Not Detected Not Detected 95209-9) ALYSSA (test code = ALYSSA) ID NOW COVID-19 Assay is an isothermal nucleic acid amplification test intended for the qualitative detection of nucleic acid from SARS-CoV-2 viral RNA in nasopharyngeal (SCO[employer] MECHANIC) specimens. It is used under Emergency Use [...] indicated. Lab Interpretation Normal (test code = 12880-6) [facility] StationN-TERMINAL [id number] 00:12:00 Test Item Value Reference Range Interpretation Comments NT-proBNP (test code 585 pg/mL See_Comment H [Autom ated = 9933495408) message] The system which generated this result transmitted reference range : <=450. The reference range was not used to interpret this result as normal/abnormal . ALYSSA (test code = ALYSSA) Biotin has been reported to cause a negative bias, interpret results relative to patient's use of biotin. Lab Interpretation Abnormal (test code = 89676-8) [facility] StationTROPONIN [id number] 00:12:00 Test Item Value Reference Range Interpretation Comments TROPONIN I (test 0.030 ng/mL See_Comment [Automated code = 1996721013) message] The system which generated this result [...] ? Lab Interpretation Normal (test code = 16502-1) [facility] StationN-TERMINAL [id number] 00:12:00 Test Item Value Reference Range Interpretation Comments NT-proBNP (test code 585 pg/mL See_Comment H [Autom ated = 0741330538) message] The system which generated this result transmitted reference range : <=450. The reference range was not used to interpret this result as normal/abnormal . ALYSSA (test code = ALYSSA) Biotin has been reported to cause a negative bias, interpret results relative to patient's use of biotin. Lab Interpretation Abnormal (test code = 64979-4) [facility] StationTROPONIN [id number] 00:12:00 Test Item Value Reference Range Interpretation Comments TROPONIN I (test 0.030 ng/mL See_Comment [Automated code = 0034759684) message] The system which generated this result [...] ? Lab Interpretation Normal (test code = 45849-1) [facility]. METABOLIC PANEL (06096)2020-03-23 00:03:00 Test Item Value Reference Range Interpretation Comments NA (test code = 138 mmol/L 135-145 5820014482) K (test code = 4.1 mmol/L 3.5-5 2543095558) CL (test code = 103 mmol/L 98-108 8359806877) CO2 TOTAL (test code = 26 mmol/L 23-31 8415796517) AGAP (test code = 2-16 0947489378) BUN (test code = 18 mg/dL 7-23 7859563355) GLUCOSE (test code = 157 mg/dL 70-110 H 8148107187) CREATININE (test code = 1.19 mg/dL 0.6-1.25 7897081083) TOTAL BILI (test code = 1.1 mg/dL 0.1-1.6 0242001420) CALCIUM (test code = 9.2 mg/dL 8.6-10.6 9420796197) T PROTEIN (test code = 6.8 g/dL 6.3-8.2 5310803428) ALBUMIN (test code = 4.0 g/dL 3.5-5 0256513536) ALK PHOS (test code = 51 U/L 34-122 1118326401) ALTv (test code = 16 U/L 5-50 1742-6) AST(SGOT) (test code = 23 U/L 13-40 9868571558) eGFR Calculation mL/min/1.73m2 (Non-) (test code = 8865391984) eGFR Calculation mL/min/1.73m2 () (test code = 2820954707) ALYSSA (test code = ALYSSA) Association of [...] tests). Lab Interpretation Abnormal (test code = 88665-4) [facility]. METABOLIC PANEL (98542)2020-03-23 00:03:00 Test Item Value Reference Range Interpretation Comments NA (test code = 138 mmol/L 135-145 0409765772) K (test code = 4.1 mmol/L 3.5-5 4041049262) CL (test code = 103 mmol/L 98-108 9865614116) CO2 TOTAL (test code = 26 mmol/L 23-31 8375041461) AGAP (test code = 2-16 9761448829) BUN (test code = 18 mg/dL 7-23 8751532395) GLUCOSE (test code = 157 mg/dL 70-110 H 2575942043) CREATININE (test code = 1.19 mg/dL 0.6-1.25 9056505753) TOTAL BILI (test code = 1.1 mg/dL 0.1-1.8 9350237918) CALCIUM (test code = 9.2 mg/dL 8.6-10.6 2375008183) T PROTEIN (test code = 6.8 g/dL 6.3-8.2 8628662991) ALBUMIN (test code = 4.0 g/dL 3.5-5 1163739664) ALK PHOS (test code = 51 U/L 34-122 4629926797) ALTv (test code = 16 U/L 5-50 1742-6) AST(SGOT) (test code = 23 U/L 13-40 0524600910) eGFR Calculation mL/min/1.73m2 (Non-) (test code = 8442903279) eGFR Calculation mL/min/1.73m2 () (test code = 2824377539) ALYSSA (test code = ALYSSA) Association of [...] tests). Lab Interpretation Abnormal (test code = 26700-8) [facility] WITH [id number] 23:57:00 Test Item Value Reference Range Interpretation [...] RDW-SD (test code = 49.6 fL 38.5-51.6 09652-6) RDW-CV (test code = 14.6 % 12.1-15.4 788-0) PLT (test code = See_Comment L [Automated 777-3) message] The sy stem which generated this result transmitted reference range : 150 - 328 10*3/ ?L. The reference r corey was not used to interpret this result as normal/abnormal . MPV (test code = 9.9 fL 9.8-13 02740-9) NRBC/100 WBC (test See_Comment [Automat ed code = 2427541621) message] The system which generated this result transmitted reference range : 0.0 - 10.0 /100 WBCs. The refer ence range was not u sed to interpret th is result as normal/abnormal . NRBC x10^3 (test code <0.01 See_Comment [Auto mated = 1901272522) message] The s ystem which generated this result transmitted reference range : 10*3/?L. The reference range was not used to interpret this result as normal/abnormal . GRAN MAT (NEUT) % 55.3 % (test code = 770-8) IMM GRAN % (test code 0.20 % = 9874049876) LYMPH % (test code = 28.3 % 736-9) MONO % (test code = 12.6 % 5905-5) EOS % (test code = 3.1 % 713-8) BASO % (test code = 0.5 % 706-2) GRAN MAT x10^3(ANC) 3.20 10*3/uL 1.99-6.95 (test code = 2053567757) IMM GRAN x10^3 (test <0.03 0-0.06 code = 4950355843) LYMPH x10^3 (test code 1.64 10*3/uL 1.09-3.23 = 731-0) MONO x10^3 (test code 0.73 10*3/uL 0.36-1.02 = 742-7) EOS x10^3 (test code = 0.18 10*3/uL 0.06-0.53 711-2) BASO x10^3 (test code 0.03 10*3/uL 0.01-0.09 = 704-7) Lab Interpretation Abnormal (test code = 61790-2) [facility] WITH [id number] 23:57:00 Test Item Value Reference Range Interpretation Comments WBC (test code = See_Comment [Automated 0690-2) message] The sy stem which generated this result transmitted reference range : 4.20 - 10.70 10*3/?L. The reference range was not used to interpret this result as normal/abnormal . RBC (test code = See_Comment L [Automated 679-8) message] The sy stem which generated this [...] RDW-SD (test code = 49.6 fL 38.5-51.6 07317-5) RDW-CV (test code = 14.6 % 12.1-15.4 788-0) PLT (test code = See_Comment L [Automated 777-3) message] The sy stem which generated this result transmitted reference range : 150 - 328 10*3/ ?L. The reference r corey was not used to interpret this result as normal/abnormal . MPV (test code = 9.9 fL 9.8-13 14344-8) NRBC/100 WBC (test See_Comment [Automat ed code = 2489106606) message] The system which generated this result transmitted reference range : 0.0 - 10.0 /100 WBCs. The refer ence range was not u sed to interpret th is result as normal/abnormal . NRBC x10^3 (test code <0.01 See_Comment [Auto mated = 1300085964) message] The s ystem which generated this result transmitted reference range : 10*3/?L. The reference range was not used to interpret this result as normal/abnormal . GRAN MAT (NEUT) % 55.3 % (test code = 770-8) IMM GRAN % (test code 0.20 % = 3888240033) LYMPH % (test code = 28.3 % 736-9) MONO % (test code = 12.6 % 5905-5) EOS % (test code = 3.1 % 713-8) BASO % (test code = 0.5 % 706-2) GRAN MAT x10^3(ANC) 3.20 10*3/uL 1.99-6.95 (test code = 1138622248) IMM GRAN x10^3 (test <0.03 0-0.06 code = 2798700853) LYMPH x10^3 (test code 1.64 10*3/uL 1.09-3.23 = 731-0) MONO x10^3 (test code 0.73 10*3/uL 0.36-1.02 = 742-7) EOS x10^3 (test code = 0.18 10*3/uL 0.06-0.53 711-2) BASO x10^3 (test code 0.03 10*3/uL 0.01-0.09 = 704-7) Lab Interpretation Abnormal (test code = 01642-7) [facility] StationCORONAVIRUS COVID-19 [id number] 21:48:00 Test Item Value Reference Range Interpretation Comments SARS-CoV-2 (test code = Not Detected Not Detected 50210-4) ALYSSA (test code = ALYSSA) ID NOW COVID-19 Assay is an isothermal nucleic acid amplification test intended for the qualitative detection of nucleic acid from SARS-CoV-2 viral RNA in nasopharyngeal ([employer]) specimens. It is used under Emergency Use [...] indicated. Lab Interpretation Normal (test code = 04750-4) [facility] StationTroponin [id number] 21:44:00 Test Item Value Reference Range Interpretation Comments TROPONIN I (test 0.027 ng/mL See_Comment [Automated code = 9763538681) message] The system which generated this result [...] ? Lab Interpretation Normal (test code = 90590-2) [facility] StationProthrombin Time (PT) / [id number] 21:41:00 Test Item Value Reference Range Interpretation [...] tions. Lab Interpretation (test Normal code = 02798-8) [facility] StationN-TERMINAL [id number] 21:39:00 Test Item Value Reference Range Interpretation Comments NT-proBNP (test code 663 pg/mL See_Comment H [Autom ated = 1963779706) message] The system which generated this result transmitted reference range : <=450. The reference range was not used to interpret this result as normal/abnormal . ALYSSA (test code = ALYSSA) Biotin has been reported to cause a negative bias, interpret results relative to patient's use of biotin. Lab Interpretation Abnormal (test code = 93623-0) [facility]. METABOLIC PANEL (45666)2020-03-21 21:37:00 Test Item Value Reference Range Interpretation Comments NA (test code = 139 mmol/L 135-145 6711282419) K (test code = 4.1 mmol/L 3.5-5 9920050924) CL (test code = 102 mmol/L 98-108 2712053391) CO2 TOTAL (test code = 29 mmol/L 23-31 0814170666) AGAP (test code = 2-16 2314018761) BUN (test code = 18 mg/dL 7-23 2710980650) GLUCOSE (test code = 277 mg/dL 70-110 H 1245012686) CREATININE (test code = 1.23 mg/dL 0.6-1.25 1432457238) TOTAL BILI (test code = 1.3 mg/dL 0.1-1.1 H 9520375938) CALCIUM (test code = 9.8 mg/dL 8.6-10.6 7910605373) T PROTEIN (test code = 7.0 g/dL 6.3-8.2 2954740033) ALBUMIN (test code = 4.2 g/dL 3.5-5 2109052990) ALK PHOS (test code = 50 U/L 34-122 3954796399) ALTv (test code = 15 U/L 5-50 1742-6) AST(SGOT) (test code = 22 U/L 13-40 9345394509) eGFR Calculation mL/min/1.73m2 (Non-) (test code = 6998341867) eGFR Calculation mL/min/1.73m2 () (test code = 3257296233) ALYSSA (test code = ALYSSA) Association of [...] tests). Lab Interpretation Abnormal (test code = 87383-1) [facility] StationLipase [id number] 21:37:00 Test Item Value Reference Range Interpretation Comments LIPASE (test code = 5377521201) 161 U/L 0-220 Lab Interpretation (test code = Normal 06302-6) [facility] 1 [id number] 20:46:31HISTORY: Chest pain. TECHNIQUE: Portable AP view [...] canal noted.Mild thoracolumbar scoliosis noted.CONCLUSIONS: Mild cardiomegaly. [facility] StationLanvic Acid Whole [id number] 20:43:00 Test Item Value Reference Range Interpretation Comments LACTIC ACID (test code = 1.91 mmol/L 0.3-2.6 7771491630) [facility] GLUCOSE (AUTOMATED)2020-03-07 20:58:00 Test Item Value Reference Range Interpretation Comments POCT GLU (test code = 0073598246) 216 mg/dL 70-110 H Lab Interpretation (test code = Abnormal 06444-9) [facility] GLUCOSE (AUTOMATED)2020-03-07 16:00:00 Test Item Value Reference Range Interpretation Comments POCT GLU (test code = 3062905945) 168 mg/dL 70-110 H Lab Interpretation (test code = Abnormal 29444-2) [facility] GLUCOSE (AUTOMATED)2020-03-07 13:07:00 Test Item Value Reference Range Interpretation Comments POCT GLU (test code = 0496616925) 148 mg/dL 70-110 H Lab Interpretation (test code = Abnormal 26091-2) [facility] [id number] 11:27:00 Test Item Value Reference Range Interpretation Comments TROPONIN I (test 0.051 ng/mL See_Comment H [Automated code = 6076143883) message] The system which generated this result [...] ? Lab Interpretation Abnormal (test code = 34445-7) [facility] StationN-TERMINAL [id number] 11:24:00 Test Item Value Reference Range Interpretation Comments NT-proBNP (test code 336 pg/mL See_Comment [Autom ated = 4747426398) message] The system which generated this result transmitted reference range : <=450. The reference range was not used to interpret this result as normal/abnormal . ALYSSA (test code = ALYSSA) Biotin has been reported to cause a negative bias, interpret results relative to patient's use of biotin. Lab Interpretation Normal (test code = 47887-0) [facility] Metabolic Panel (NA, K, CL, CO2, GLUCOSE, BUN, CREATININE, CA)2020-03-07 11:14:00 Test Item Value Reference Range Interpretation Comments NA (test code = 138 mmol/L 135-145 4044331877) K (test code = 3.8 mmol/L 3.5-5 9999655208) CL (test code = 97 mmol/L 98-108 L 9257803814) CO2 TOTAL (test code = 30 mmol/L 23-31 1329148924) AGAP (test code = 2-16 7206654531) BUN (test code = 36 mg/dL 7-23 H 5540537875) GLUCOSE (test code = 140 mg/dL 70-110 H 2367353997) CREATININE (test code = 1.50 mg/dL 0.6-1.25 H 5475203772) CALCIUM (test code = 10.0 mg/dL 8.6-10.6 3518771507) eGFR Calculation mL/min/1.73m2 (Non-) (test code = 1530054054) eGFR Calculation mL/min/1.73m2 () (test code = 9821347814) ALYSSA (test code = ALYSSA) Association of [...] tests). Lab Interpretation Abnormal (test code = 31432-4) [facility] StationURIC [id number] 11:14:00 Test Item Value Reference Range Interpretation Comments URIC ACID (test code = 8263525415) 5.4 mg/dL 3.6-8 Lab Interpretation (test code = Normal 49509-9) [facility] WITH [id number] 10:53:00 Test Item Value Reference Range Interpretation [...] RDW-SD (test code = 45.1 fL 38.5-51.6 06983-2) RDW-CV (test code = 14.2 % 12.1-15.4 788-0) PLT (test code = See_Comment [Automated 777-3) message] The sy stem which generated this result transmitted reference range : 150 - 328 10*3/ ?L. The reference r corey was not used to interpret this result as normal/abnormal . MPV (test code = 9.8 fL 9.8-13 81788-7) NRBC/100 WBC (test See_Comment [Automat ed code = 3298886465) message] The system which generated this result transmitted reference range : 0.0 - 10.0 /100 WBCs. The refer ence range was not u sed to interpret th is result as normal/abnormal . NRBC x10^3 (test code <0.01 See_Comment [Auto mated = 1397465689) message] The s ystem which generated this result transmitted reference range : 10*3/?L. The reference range was not used to interpret this result as normal/abnormal . GRAN MAT (NEUT) % 51.0 % (test code = 770-8) IMM GRAN % (test code 0.50 % = 9977227368) LYMPH % (test code = 32.0 % 736-9) MONO % (test code = 11.3 % 5905-5) EOS % (test code = 4.3 % 713-8) BASO % (test code = 0.9 % 706-2) GRAN MAT x10^3(ANC) 2.85 10*3/uL 1.99-6.95 (test code = 1707380174) IMM GRAN x10^3 (test 0.03 10*3/uL 0-0.06 code = 7909576054) LYMPH x10^3 (test code 1.79 10*3/uL 1.09-3.23 = 731-0) MONO x10^3 (test code 0.63 10*3/uL 0.36-1.02 = 742-7) EOS x10^3 (test code = 0.24 10*3/uL 0.06-0.53 711-2) BASO x10^3 (test code 0.05 10*3/uL 0.01-0.09 = 704-7) Lab Interpretation Abnormal (test code = 20556-4) [facility] GLUCOSE (AUTOMATED)2020-03-06 22:46:00 Test Item Value Reference Range Interpretation Comments POCT GLU (test code = 7365957032) 209 mg/dL 70-110 H Lab Interpretation (test code = Abnormal 13650-5) [facility] GLUCOSE (AUTOMATED)2020-03-06 16:23:00 Test Item Value Reference Range Interpretation Comments POCT GLU (test code = 7218154413) 254 mg/dL 70-110 H Lab Interpretation (test code = Abnormal 79290-1) [facility] GLUCOSE (AUTOMATED)2020-03-06 12:51:00 Test Item Value Reference Range Interpretation Comments POCT GLU (test code = 4595468719) 126 mg/dL 70-110 H Lab Interpretation (test code = Abnormal 31199-9) [facility] StationTROPONIN [id number] 10:16:00 Test Item Value Reference Range Interpretation Comments TROPONIN I (test 0.056 ng/mL See_Comment H [Automated code = 5683004887) message] The system which generated this result [...] ? Lab Interpretation Abnormal (test code = 24879-5) [facility] Metabolic Panel (NA, K, CL, CO2, GLUCOSE, BUN, CREATININE, CA)2020-03-06 10:13:00 Test Item Value Reference Range Interpretation Comments NA (test code = 136 mmol/L 135-145 6837603631) K (test code = 4.1 mmol/L 3.5-5 8424056844) CL (test code = 95 mmol/L 98-108 L 9298294378) CO2 TOTAL (test code = 30 mmol/L 23-31 8937521772) AGAP (test code = 2-16 3148557387) BUN (test code = 35 mg/dL 7-23 H 1284768665) GLUCOSE (test code = 174 mg/dL 70-110 H 9426898997) CREATININE (test code = 1.67 mg/dL 0.6-1.25 H 7995648925) CALCIUM (test code = 9.7 mg/dL 8.6-10.6 8088581084) eGFR Calculation mL/min/1.73m2 (Non-) (test code = 1425047296) eGFR Calculation mL/min/1.73m2 () (test code = 9070527073) ALYSSA (test code = ALYSSA) Association of [...] tests). Lab Interpretation Abnormal (test code = 37398-2) [facility] WITH [id number] 09:16:00 Test Item Value Reference Range Interpretation Comments WBC (test code = See_Comment [Automated 0690-2) message] The sy stem which generated this [...] RDW-SD (test code = 45.6 fL 38.5-51.6 66390-6) RDW-CV (test code = 14.3 % 12.1-15.4 788-0) PLT (test code = See_Comment [Automated 777-3) message] The sy stem which generated this result transmitted reference range : 150 - 328 10*3/ ?L. The reference r corey was not used to interpret this result as normal/abnormal . MPV (test code = 9.8 fL 9.8-13 32818-1) NRBC/100 WBC (test See_Comment [Automat ed code = 7358075878) message] The system which generated this result transmitted reference range : 0.0 - 10.0 /100 WBCs. The refer ence range was not u sed to interpret th is result as normal/abnormal . NRBC x10^3 (test code <0.01 See_Comment [Auto mated = 6395690577) message] The s ystem which generated this result transmitted reference range : 10*3/?L. The reference range was not used to interpret this result as normal/abnormal . GRAN MAT (NEUT) % 56.1 % (test code = 770-8) IMM GRAN % (test code 0.10 % = 1872568404) LYMPH % (test code = 29.7 % 736-9) MONO % (test code = 9.6 % 5905-5) EOS % (test code = 3.8 % 713-8) BASO % (test code = 0.7 % 706-2) GRAN MAT x10^3(ANC) 3.79 10*3/uL 1.99-6.95 (test code = 9387357144) IMM GRAN x10^3 (test <0.03 0-0.06 code = 4819823417) LYMPH x10^3 (test code 2.01 10*3/uL 1.09-3.23 = 731-0) MONO x10^3 (test code 0.65 10*3/uL 0.36-1.02 = 742-7) EOS x10^3 (test code = 0.26 10*3/uL 0.06-0.53 711-2) BASO x10^3 (test code 0.05 10*3/uL 0.01-0.09 = 704-7) Lab Interpretation Abnormal (test code = 44969-4) [facility] StationPO[facility] GLUCOSE (AUTOMATED)2020-03-06 01:25:00 Test Item Value Reference Range Interpretation Comments POCT GLU (test code = 7217415630) 208 mg/dL 70-110 H Lab Interpretation (test code = Abnormal 35759-1) [facility] StationTROPONIN [id number] 00:08:00 Test Item Value Reference Range Interpretation Comments TROPONIN I (test 0.047 ng/mL See_Comment H [Automated code = 6480901247) message] The system which generated this result [...] ? Lab Interpretation Abnormal (test code = 37611-0) [facility] GLUCOSE (AUTOMATED)2020-03-05 21:19:00 Test Item Value Reference Range Interpretation Comments POCT GLU (test code = 9423046458) 234 mg/dL 70-110 H Lab Interpretation (test code = Abnormal 35122-3) [facility] GLUCOSE (AUTOMATED)2020-03-05 16:55:00 Test Item Value Reference Range Interpretation Comments POCT GLU (test code = 5660718319) 258 mg/dL 70-110 H Lab Interpretation (test code = Abnormal 05211-3) [facility] GLUCOSE (AUTOMATED)2020-03-05 12:59:00 Test Item Value Reference Range Interpretation Comments POCT GLU (test code = 6392527178) 194 mg/dL 70-110 H Lab Interpretation (test code = Abnormal 13892-0) [facility] StationTRPRISMA HE[facility] BAPTIST HOSPITALNIN [id number] 10:54:00 Test Item Value Reference Range Interpretation Comments TROPONIN I (test 0.071 ng/mL See_Comment H [Automated code = 2753086950) message] The system which generated this result [...] ? Lab Interpretation Abnormal (test code = 39888-0) [facility]Ban[facility] (NA, K, CL, CO2, GLUCOSE, BUN, CREATININE, CA)2020-03-05 10:43:00 Test Item Value Reference Range Interpretation Comments NA (test code = 139 mmol/L 135-145 6418220744) K (test code = 4.1 mmol/L 3.5-5 2355038477) CL (test code = 101 mmol/L 98-108 2985636492) CO2 TOTAL (test code = 27 mmol/L 23-31 0578861082) AGAP (test code = 2-16 7456350870) BUN (test code = 25 mg/dL 7-23 H 2910941438) GLUCOSE (test code = 243 mg/dL 70-110 H 0312355167) CREATININE (test code = 1.22 mg/dL 0.6-1.25 2971963778) CALCIUM (test code = 9.8 mg/dL 8.6-10.6 9937747122) eGFR Calculation mL/min/1.73m2 (Non-) (test code = 4541103271) eGFR Calculation mL/min/1.73m2 () (test code = 9250587857) ALYSSA (test code = ALYSSA) Association of [...] tests). Lab Interpretation Abnormal (test code = 56952-0) [facility] WITH [id number] 10:23:00 Test Item Value Reference Range Interpretation Comments WBC (test code = See_Comment [Automated message] 6690-2) The system [employer] generated this result transmitted ref erence range: 4.20 - 1 0.70 10*3/?L. The re ference range was not u sed to interpret this result as normal/abnor mal. RBC (test code = See_Comment [Automated message] 789-8) The system [employer] generated this result transmitted ref erence [...] RDW-SD (test code 47.8 fL 38.5-51.6 = 41975-1) RDW-CV (test code 14.4 % 12.1-15.4 = 788-0) PLT (test code = See_Comment [Automated message] 777-3) The system [employer] generated this result transmitted ref erence range: 150 - 32 8 10*3/?L. The re ference range was not u sed to interpret this result as normal/abnor mal. MPV (test code = 9.8 fL 9.8-13 80928-6) NRBC/100 WBC (test See_Comment [Automat ed message] code = 5916061894) The syste m which generated this result transmitted ref erence range: 0.0 - 10 .0 /100 WBCs. The refer ence range was not u sed to interpret this result as normal/abnor mal. NRBC x10^3 (test <0.01 See_Comment [Automated message] code = 2002111413) The syste m which generated this result transmitted ref erence range: 10*3/?L. The reference range was not used to interpr et this result as normal/abnormal . GRAN MAT (NEUT) % 48.8 % (test code = 770-8) IMM GRAN % (test 0.20 % code = 1378488365) LYMPH % (test code 34.7 % = 736-9) MONO % (test code 10.8 % = 5905-5) EOS % (test code = 4.9 % 713-8) BASO % (test code 0.6 % = 706-2) GRAN MAT 2.49 10*3/uL 1.99-6.95 x10^3(ANC) (test code = 6962338782) IMM GRAN x10^3 <0.03 0-0.06 (test code = 1290798158) LYMPH x10^3 (test 1.77 10*3/uL 1.09-3.23 code = 731-0) MONO x10^3 (test 0.55 10*3/uL 0.36-1.02 code = 742-7) EOS x10^3 (test 0.25 10*3/uL 0.06-0.53 code = 711-2) BASO x10^3 (test 0.03 10*3/uL 0.01-0.09 code = 704-7) [facility] StationXR CHEST 1 [id number] 03:06:08 No acute cardiopulmonary process. Unchanged enlargement [...] terminating over themid to lower thoracic spine. [facility], Radiant Results [...] abovereport.[facility] StationCORONAVIRUS COVID-19 [id number] 00:34:00 Test Item Value Reference Range Interpretation Comments SARS-CoV-2 (test code = Not Detected Not Detected 04548-3) ALYSSA (test code = ALYSSA) ID NOW COVID-19 Assay is an isothermal nucleic acid amplification test intended for the qualitative detection of nucleic acid from SARS-CoV-2 viral RNA in nasopharyngeal ([employer]) specimens. It is used under Emergency Use [...] indicated. Lab Interpretation Normal (test code = 24387-3) [facility] StationTroponin [id number] 00:08:00 Test Item Value Reference Range Interpretation Comments TROPONIN I (test 0.056 ng/mL See_Comment H [Automated code = 4434462406) message] The system which generated this result [...] ? Lab Interpretation Abnormal (test code = 66824-2) [facility] StationN-TERMINAL [id number] 00:04:00 Test Item Value Reference Range Interpretation Comments NT-proBNP (test code 562 pg/mL See_Comment H [Autom ated = 1045180385) message] The system which generated this result transmitted reference range : <=450. The reference range was not used to interpret this result as normal/abnormal . ALYSSA (test code = ALYSSA) Biotin has been reported to cause a negative bias, interpret results relative to patient's use of biotin. Lab Interpretation Abnormal (test code = 43991-7) [facility] StationProthrombin Time (PT) / [id number] 23:57:00 Test Item Value Reference Range Interpretation [...] tions. Lab Interpretation (test Normal code = 35409-3) [facility] StationBasi Metabolic Panel (NA, K, CL, CO2, GLUCOSE, BUN, CREATININE, CA)2020-03-04 23:56:00 Test Item Value Reference Range Interpretation Comments NA (test code = 139 mmol/L 135-145 1294437921) K (test code = 4.1 mmol/L 3.5-5 5402582607) CL (test code = 102 mmol/L 98-108 0299355664) CO2 TOTAL (test code = 29 mmol/L 23-31 0513305218) AGAP (test code = 2-16 4637599648) BUN (test code = 23 mg/dL 7-23 4402352530) GLUCOSE (test code = 193 mg/dL 70-110 H 3308738371) CREATININE (test code = 1.25 mg/dL 0.6-1.25 1549470671) CALCIUM (test code = 9.7 mg/dL 8.6-10.6 5190942435) eGFR Calculation mL/min/1.73m2 (Non-) (test code = 2546815253) eGFR Calculation mL/min/1.73m2 () (test code = 5632068659) ALYSSA (test code = ALYSSA) Association of [...] tests). Lab Interpretation Abnormal (test code = 61211-7) [facility] StationHepatic Function Panel (ALB, T.PRO, BILI T, BU/BC, ALT, AST, ALK PHOS)2020-03-04 23:56:00 Test Item Value Reference Range Interpretation Comments TOTAL BILI (test code = 4213688293) 1.1 mg/dL 0.1-1.1 BILI UNCON (test code = 7245708700) 1.1 mg/dL 0.1-1.1 BILI CONJ (test code = 2742051294) 0.0 mg/dL 0-0.3 T PROTEIN (test code = 4323105586) 7.1 g/dL 6.3-8.2 ALBUMIN (test code = 1597708003) 4.1 g/dL 3.5-5 ALK PHOS (test code = 0786672651) 61 U/L 34-122 ALTv (test code = 1742-6) 16 U/L 5-50 AST(SGOT) (test code = 3199699469) 23 U/L 13-40 Lab Interpretation (test code = Normal 59051-9) [facility] StationLipase [id number] 23:56:00 Test Item Value Reference Range Interpretation Comments LIPASE (test code = 9257055694) 149 U/L 0-220 Lab Interpretation (test code = Normal 34314-5) [facility] StationaPTT2020-04-19 23:56:00 Test Item Value Reference Range Interpretation Comments APTT Patient (test See_Comment [Automat ed code = 3173-2) message] The system which generated this result transmitted reference range : 23 - 38 Seconds . The reference range was not used to interpr et this result as normal/abnormal . ALYSSA (test code = ALYSSA) The [facility] patient population mean normal value for aPTT is 30 seconds. Lab Interpretation Normal (test code = 82394-4) [facility] StationCBC WITH [id number] 23:46:00 Test Item Value Reference Range Interpretation [...] RDW-SD (test code = 48.3 fL 38.5-51.6 21555-3) RDW-CV (test code = 14.7 % 12.1-15.4 788-0) PLT (test code = See_Comment [Automated 777-3) message] The sy stem which generated this result transmitted reference range : 150 - 328 10*3/ ?L. The reference r corey was not used to interpret this result as normal/abnormal . MPV (test code = 9.8 fL 9.8-13 43821-4) NRBC/100 WBC (test See_Comment [Automat ed code = 2640755224) message] The system which generated this result transmitted reference range : 0.0 - 10.0 /100 WBCs. The refer ence range was not u sed to interpret th is result as normal/abnormal . NRBC x10^3 (test code <0.01 See_Comment [Auto mated = 4217560232) message] The s ystem which generated this result transmitted reference range : 10*3/?L. The reference range was not used to interpret this result as normal/abnormal . GRAN MAT (NEUT) % 60.1 % (test code = 770-8) IMM GRAN % (test code 0.20 % = 5455659528) LYMPH % (test code = 26.4 % 736-9) MONO % (test code = 9.9 % 5905-5) EOS % (test code = 2.8 % 713-8) BASO % (test code = 0.6 % 706-2) GRAN MAT x10^3(ANC) 3.17 10*3/uL 1.99-6.95 (test code = 9815320034) IMM GRAN x10^3 (test <0.03 0-0.06 code = 6444020313) LYMPH x10^3 (test code 1.39 10*3/uL 1.09-3.23 = 731-0) MONO x10^3 (test code 0.52 10*3/uL 0.36-1.02 = 742-7) EOS x10^3 (test code = 0.15 10*3/uL 0.06-0.53 711-2) BASO x10^3 (test code 0.03 10*3/uL 0.01-0.09 = 704-7) Lab Interpretation Abnormal (test code = 58805-7) [facility] GLUCOSE (AUTOMATED)2020-03-02 16:04:00 Test Item Value Reference Range Interpretation Comments POCT GLU (test code = 5433161637) 214 mg/dL 70-110 H Lab Interpretation (test code = Abnormal 65030-0) [facility] GLUCOSE (AUTOMATED)2020-03-02 16:04:00 Test Item Value Reference Range Interpretation Comments POCT GLU (test code = 8004242997) 271 mg/dL 70-110 H Lab Interpretation (test code = Abnormal 68658-0) [facility] StationN-TERMINAL [id number] 09:43:00 Test Item Value Reference Range Interpretation Comments NT-proBNP (test code 1670 pg/mL See_Comment H [Autom ated = 1955475388) message] The system which generated this result transmitted reference range : <=450. The reference range was not used to interpret this result as normal/abnormal . ALYSSA (test code = ALYSSA) Biotin has been reported to cause a negative bias, interpret results relative to patient's use of biotin. Lab Interpretation Abnormal (test code = 02246-3) [facility] METABOLIC PANEL (NA, K, CL, CO2, GLUCOSE, BUN, CREATININE, CA)2020-03-02 09:33:00 Test Item Value Reference Range Interpretation Comments NA (test code = 143 mmol/L 135-145 5241825296) K (test code = 3.8 mmol/L 3.5-5 0695244017) CL (test code = 105 mmol/L 98-108 8205812344) CO2 TOTAL (test code = 28 mmol/L 23-31 5746252966) AGAP (test code = 2-16 9151257935) BUN (test code = 19 mg/dL 7-23 7810980355) GLUCOSE (test code = 152 mg/dL 70-110 H 6016467768) CREATININE (test code = 1.18 mg/dL 0.6-1.25 6096600522) CALCIUM (test code = 9.0 mg/dL 8.6-10.6 4662826238) eGFR Calculation mL/min/1.73m2 (Non-) (test code = 6936990585) eGFR Calculation mL/min/1.73m2 () (test code = 0178255961) ALYSSA (test code = ALYSSA) Association of [...] tests). Lab Interpretation Abnormal (test code = 10679-5) [facility] StationMAGNESIUM2020-04-17 09:33:00 Test Item Value Reference Range Interpretation Comments MAGNESIUM (test code = 4034262648) 1.8 mg/dL 1.7-2.4 Lab Interpretation (test code = Normal 10982-0) [facility] StationPOCT GLUCOSE (AUTOMATED)2020-03-01 20:42:00 Test Item Value Reference Range Interpretation Comments POCT GLU (test code = 3306275845) 231 mg/dL 70-110 H Lab Interpretation (test code = Abnormal 55549-8) [facility] StationVITAMIN B12, [id number] 11:51:00 Test Item Value Reference Range Interpretation Comments VIT B12 (test code = 325 pg/mL 240-930 4316658126) ALYSSA (test code = ALYSSA) Biotin has been reported to cause a positive bias, interpret results relative to patient's use of biotin. Lab Interpretation (test Normal code = 83415-0) [facility] StationFOLATE2020-04-16 11:49:00 Test Item Value Reference Range Interpretation Comments FOLATE SER (test code = >20.0 3-20 H Slig ht hemolysis 5828903274) Lab Interpretation (test Abnormal code = 28069-9) [facility] StationPROCALCITONIN2020-04-16 10:49:00 Test Item Value Reference Range Interpretation Comments Procalcitonin (test 3.05 ng/mL <0.07 H code = 4532886432) ALYSSA (test code = ALYSSA) INTERPRETATION OF [...] lung abscess/empyema. For further information please refer to:[email or web address] Lab Interpretation Abnormal (test code = 09410-4) [facility] StationWENDY [id number] 09:58:00 Test Item Value Reference Range Interpretation Comments TROPONIN I (test 0.093 ng/mL See_Comment H [Automated code = 4710340858) message] The system which generated this result [...] ? Lab Interpretation Abnormal (test code = 16706-5) [facility] StationN-TERMINAL [id number] 09:55:00 Test Item Value Reference Range Interpretation Comments NT-proBNP (test code 4450 pg/mL See_Comment H [Autom ated = 6559264811) message] The system which generated this result transmitted reference range : <=450. The reference range was not used to interpret this result as normal/abnormal . ALYSSA (test code = ALYSSA) Biotin has been reported to cause a negative bias, interpret results relative to patient's use of biotin. Lab Interpretation Abnormal (test code = 31780-9) [facility] StationBasi Metabolic Panel (NA, K, CL, CO2, GLUCOSE, BUN, CREATININE, CA)2020-03-01 09:50:00 Test Item Value Reference Range Interpretation Comments NA (test code = 141 mmol/L 135-145 8904348102) K (test code = 3.5 mmol/L 3.5-5 3799586026) CL (test code = 105 mmol/L 98-108 7684198212) CO2 TOTAL (test code = 26 mmol/L 23-31 6717125640) AGAP (test code = 2-16 9791216496) BUN (test code = 13 mg/dL 7-23 5316434343) GLUCOSE (test code = 219 mg/dL 70-110 H 1178449908) CREATININE (test code = 1.01 mg/dL 0.6-1.25 3044694867) CALCIUM (test code = 8.7 mg/dL 8.6-10.6 3421421759) eGFR Calculation mL/min/1.73m2 (Non-) (test code = 2176154733) eGFR Calculation mL/min/1.73m2 () (test code = 1906997621) ALYSSA (test code = ALYSSA) Association of [...] tests). Lab Interpretation Abnormal (test code = 19471-1) [facility] StationMagnesium [id number] 09:50:00 Test Item Value Reference Range Interpretation Comments MAGNESIUM (test code = 2171964899) 1.9 mg/dL 1.7-2.4 Lab Interpretation (test code = Normal 99392-6) [facility] WITH [id number] 09:22:00 Test Item Value Reference Range Interpretation [...] RDW-SD (test code = 47.8 fL 38.5-51.6 63742-1) RDW-CV (test code = 14.8 % 12.1-15.4 788-0) PLT (test code = See_Comment L [Automated 777-3) message] The sy stem which generated this result transmitted reference range : 150 - 328 10*3/ ?L. The reference r corey was not used to interpret this result as normal/abnormal . MPV (test code = 9.9 fL 9.8-13 34401-3) NRBC/100 WBC (test See_Comment [Automat ed code = 7128040443) message] The system which generated this result transmitted reference range : 0.0 - 10.0 /100 WBCs. The refer ence range was not u sed to interpret th is result as normal/abnormal . NRBC x10^3 (test code <0.01 See_Comment [Auto mated = 8421329249) message] The s ystem which generated this result transmitted reference range : 10*3/?L. The reference range was not used to interpret this result as normal/abnormal . GRAN MAT (NEUT) % 66.0 % (test code = 770-8) IMM GRAN % (test code 0.30 % = 0150122073) LYMPH % (test code = 20.8 % 736-9) MONO % (test code = 9.5 % 5905-5) EOS % (test code = 2.8 % 713-8) BASO % (test code = 0.6 % 706-2) GRAN MAT x10^3(ANC) 4.44 10*3/uL 1.99-6.95 (test code = 9902959945) IMM GRAN x10^3 (test <0.03 0-0.06 code = 0093833801) LYMPH x10^3 (test code 1.40 10*3/uL 1.09-3.23 = 731-0) MONO x10^3 (test code 0.64 10*3/uL 0.36-1.02 = 742-7) EOS x10^3 (test code = 0.19 10*3/uL 0.06-0.53 711-2) BASO x10^3 (test code 0.04 10*3/uL 0.01-0.09 = 704-7) Lab Interpretation Abnormal (test code = 61288-1) [facility] StationGLYCOSYLATED HEMOGLOBIN (A1C)2020-03-01 06:49:00 Test Item Value Reference [...] Indicated Lab Interpretation Abnormal (test code = 68014-1) [facility] StationURIC [id number] 06:25:00 Test Item Value Reference Range Interpretation Comments URIC ACID (test code = 5066780118) 2.3 mg/dL 3.6-8 L Lab Interpretation (test code = Abnormal 28621-3) [facility] StationSEDIMENTATION [id number] 05:25:00 Test Item Value Reference Range Interpretation Comments ESR (test code = See_Comment H [Automated message] 6464434928) The system [employer] generated this result transmitted ref erence range: 0 - 10 m m/HR. The reference r corey was not used to interpret this result as normal/abnor mal. Lab Interpretation (test Abnormal code = 10908-0) [facility] StationN-TERMINAL [id number] 04:07:00 Test Item Value Reference Range Interpretation Comments NT-proBNP (test code 4080 pg/mL See_Comment H [Autom ated = 8983150109) message] The system which generated this result transmitted reference range : <=450. The reference range was not used to interpret this result as normal/abnormal . ALYSSA (test code = ALYSSA) Biotin has been reported to cause a negative bias, interpret results relative to patient's use of biotin. Lab Interpretation Abnormal (test code = 45764-8) [facility] StationPOCT GLUCOSE (AUTOMATED)2020-03-01 03:42:00 Test Item Value Reference Range Interpretation Comments POCT GLU (test code = 2599098933) 190 mg/dL 70-110 H Lab Interpretation (test code = Abnormal 65649-5) [facility] StationTROPONIN [id number] 03:30:00 Test Item Value Reference Range Interpretation Comments TROPONIN I (test 0.098 ng/mL See_Comment H [Automated code = 8078426554) message] The system which generated this result [...] ? Lab Interpretation Abnormal (test code = 89575-1) [facility] StationHEPATIC FUNCTION PANEL (60780) (ALB,T.PRO,BILI T,BU/BC,ALT,AST,ALK PHOS)2020-03-01 03:24:00 Test Item Value Reference Range Interpretation Comments TOTAL BILI (test code = 8602231548) 2.2 mg/dL 0.1-1.1 H BILI UNCON (test code = 6945110409) 2.0 mg/dL 0.1-1.1 H BILI CONJ (test code = 7225409601) 0.0 mg/dL 0-0.3 T PROTEIN (test code = 4229184028) 6.7 g/dL 6.3-8.2 ALBUMIN (test code = 6816863189) 4.0 g/dL 3.5-5 ALK PHOS (test code = 5188549080) 48 U/L 34-122 ALTv (test code = 1742-6) 18 U/L 5-50 AST(SGOT) (test code = 9216930189) 57 U/L 13-40 H Lab Interpretation (test code = Abnormal 39412-1) [facility] StationPhosphorus [id number] 03:17:00 Test Item Value Reference Range Interpretation Comments PHOSPHORUS (test code = 3.1 mg/dL 2.5-5 Slig ht hemolysis 7835070142) Lab Interpretation (test Normal code = 31545-3) [facility] StationPROTHROMBIN TIME / [id number] 03:08:00 Test Item Value Reference Range Interpretation Comments PROTIME PATIENT (test See_Comment [Auto mated message] code = 5964-2) The system [employer] generated this result transmitted ref erence range: 12.0 - 1 4.7 Seconds. The re ference range was not u sed to interpret this result as normal/abnor mal. INR (test code = 6301-6) Nor mal INR <1.1; Warfarin Therap eutic range 2.0 to 3. 0 or 2.5 to 3.5, dep ending upon the indica tions. Lab Interpretation (test Normal code = 68069-6) [facility] StationCREATINE [id number] 03:01:00 Test Item Value Reference Range Interpretation Comments CK (test code = 2135567636) 68 U/L 33-194 Lab Interpretation (test code = Normal 03011-8) [facility] StationURIC [id number] 02:41:00 Test Item Value Reference Range Interpretation Comments URIC ACID (test code = 7668918393) 2.3 mg/dL 3.6-8 L Lab Interpretation (test code = Abnormal 94023-6) [facility] StationTHYROID STIMULATING [id number] 02:26:00 Test Item Value Reference Range Interpretation Comments TSH (test code = See_Comment [Automated message] 7136369049) The system [employer] generated this result transmitted ref erence range: 0.45 - 4 .70 mIU/L. The refe rence range was not u sed to interpret this result as normal/abnor mal. Lab Interpretation (test Normal code = 10619-3) [facility] StationN-TERMINAL [id number] 02:04:00 Test Item Value Reference Range Interpretation Comments NT-proBNP (test code 4390 pg/mL See_Comment H [Autom ated = 6346963753) message] The system which generated this result transmitted reference range : <=450. The reference range was not used to interpret this result as normal/abnormal . ALYSSA (test code = ALYSSA) Biotin has been reported to cause a negative bias, interpret results relative to patient's use of biotin. Lab Interpretation Abnormal (test code = 73386-2) [facility] StationMAGNESIUM2020-04-16 02:01:00 Test Item Value Reference Range Interpretation Comments MAGNESIUM (test code = 6679305833) 1.5 mg/dL 1.7-2.4 L Lab Interpretation (test code = Abnormal 72057-6) [facility] StationLIPASE2020-04-16 00:22:00 Test Item Value Reference Range Interpretation Comments LIPASE (test code = 1932650056) 68 U/L 0-220 Lab Interpretation (test code = Normal 19246-0) [facility] StationCORONAVIRUS COVID-19 [id number] 23:42:00 Test Item Value Reference Range Interpretation Comments SARS-CoV-2 (test code = Not Detected Not Detected 41092-6) ALYSSA (test code = ALYSSA) ID NOW COVID-19 Assay is an isothermal nucleic acid amplification test intended for the qualitative detection of nucleic acid from SARS-CoV-2 viral RNA in nasopharyngeal ([employer]) specimens. It is used under Emergency Use [...] indicated. Lab Interpretation Normal (test code = 94663-0) [facility] StationXR CHEST 1 VW [id number] 23:26:02 No acute intrathoracic abnormality, specifically no radiographic findingsto suggest COVID-19 pneumonia. Disclaimer: Generally, the findings on chest imaging in COVID-19 are notspecific, and overlap with other infections, including influenza, H1N1,SARS and MERS. According to the Centers for Disease Control (CDC) and recent statement ofthe [employer], viral testing remains the [...] Disease Control (CDC) and recent statement ofthe [employer], viral testing remains the only specificmethod of diagnosis. Confirmation with the viral test is required, even ifradiologic findings are suggestive of COVID-[address]. Preliminary Report Dictated by Resident: Radu Boo MD., have reviewed this study and agree with theabove report.[facility] [id number] 22:59:00 Test Item Value Reference Range Interpretation Comments TROPONIN I (test 0.071 ng/mL See_Comment H [Automated code = 5764472712) message] The system which generated this result [...] ? Lab Interpretation Abnormal (test code = 31094-5) [facility] Metabolic Panel (NA, K, CL, CO2, GLUCOSE, BUN, CREATININE, CA)2020-02-29 22:48:00 Test Item Value Reference Range Interpretation Comments NA (test code = 141 mmol/L 135-145 5533970161) K (test code = 3.2 mmol/L 3.5-5 L 6422303962) CL (test code = 104 mmol/L 98-108 7457237262) CO2 TOTAL (test code = 25 mmol/L 23-31 8042096738) AGAP (test code = 2-16 3333943350) BUN (test code = 12 mg/dL 7-23 5014365578) GLUCOSE (test code = 250 mg/dL 70-110 H 8540221331) CREATININE (test code = 1.02 mg/dL 0.6-1.25 6656910601) CALCIUM (test code = 8.9 mg/dL 8.6-10.6 9131646113) eGFR Calculation mL/min/1.73m2 (Non-) (test code = 0263342054) eGFR Calculation mL/min/1.73m2 () (test code = 3110177370) ALYSSA (test code = ALYSSA) Association of [...] tests). Lab Interpretation Abnormal (test code = 91510-1) [facility] WITH [id number] 22:41:00 Test Item Value Reference Range Interpretation [...] RDW-SD (test code = 46.6 fL 38.5-51.6 61376-2) RDW-CV (test code = 14.6 % 12.1-15.4 788-0) PLT (test code = See_Comment [Automated 777-3) message] The sy stem which generated this result transmitted reference range : 150 - 328 10*3/ ?L. The reference r corey was not used to interpret this result as normal/abnormal . MPV (test code = 9.7 fL 9.8-13 L 76634-4) NRBC/100 WBC (test See_Comment [Automat ed code = 8927624426) message] The system which generated this result transmitted reference range : 0.0 - 10.0 /100 WBCs. The refer ence range was not u sed to interpret th is result as normal/abnormal . NRBC x10^3 (test code <0.01 See_Comment [Auto mated = 5518109669) message] The s ystem which generated this result transmitted reference range : 10*3/?L. The reference range was not used to interpret this result as normal/abnormal . GRAN MAT (NEUT) % 68.6 % (test code = 770-8) IMM GRAN % (test code 0.30 % = 6338289616) LYMPH % (test code = 18.6 % 736-9) MONO % (test code = 10.1 % 5905-5) EOS % (test code = 1.8 % 713-8) BASO % (test code = 0.6 % 706-2) GRAN MAT x10^3(ANC) 4.29 10*3/uL 1.99-6.95 (test code = 7678373700) IMM GRAN x10^3 (test <0.03 0-0.06 code = 3996239627) LYMPH x10^3 (test code 1.16 10*3/uL 1.09-3.23 = 731-0) MONO x10^3 (test code 0.63 10*3/uL 0.36-1.02 = 742-7) EOS x10^3 (test code = 0.11 10*3/uL 0.06-0.53 711-2) BASO x10^3 (test code 0.04 10*3/uL 0.01-0.09 = 704-7) Lab Interpretation Abnormal (test code = 38997-4) [facility] StationLactic Acid Whole [id number] 22:38:00 Test Item Value Reference Range Interpretation Comments LACTIC ACID (test code = 1.88 mmol/L 0.3-2.6 5472607663) [facility] StationPOCT GLUCOSE (AUTOMATED)2020-01-17 18:18:00 Test Item Value Reference Range Interpretation Comments POCT GLU (test code = 9257464300) 290 mg/dL 70-110 H Lab Interpretation (test code = Abnormal 18194-9) [facility] StationTROPONIN [id number] 18:01:00 Test Item Value Reference Range Interpretation Comments TROPONIN I (test 0.065 ng/mL See_Comment H [Automated code = 5059088250) message] The system which generated this result [...] ? Lab Interpretation Abnormal (test code = 05735-7) [facility] StationaPTT2020-03-03 17:10:00 Test Item Value Reference Range Interpretation Comments APTT Patient (test See_Comment H [Automat ed code = 3173-2) message] The system which generated this result transmitted reference range : 23 - 38 Seconds . The reference range was not used to interpr et this result as normal/abnormal . ALYSSA (test code = ALYSSA) The [facility] patient population mean normal value for aPTT is 30 seconds. Lab Interpretation Abnormal (test code = 87284-6) [facility] StationPOHI GLUCOSE (AUTOMATED)2020-01-17 11:59:00 Test Item Value Reference Range Interpretation Comments POCT GLU (test code = 3606913274) 185 mg/dL 70-110 H Lab Interpretation (test code = Abnormal 28395-6) [facility] StationTROPONIN [id number] 11:23:00 Test Item Value Reference Range Interpretation Comments TROPONIN I (test 0.073 ng/mL See_Comment H [Automated code = 3300150337) message] The system which generated this result [...] ? Lab Interpretation Abnormal (test code = 15506-3) [facility] StationBasic Metabolic Panel (NA, K, CL, CO2, GLUCOSE, BUN, CREATININE, CA)2020-01-17 11:16:00 Test Item Value Reference Range Interpretation Comments NA (test code = 136 mmol/L 135-145 7786833199) K (test code = 3.3 mmol/L 3.5-5 L 2308277741) CL (test code = 101 mmol/L 98-108 0385132374) CO2 TOTAL (test code = 26 mmol/L 23-31 2857597478) AGAP (test code = 2-16 5944649684) BUN (test code = 19 mg/dL 7-23 2949249856) GLUCOSE (test code = 227 mg/dL 70-110 H 2999934237) CREATININE (test code = 1.33 mg/dL 0.6-1.25 H 6572735269) CALCIUM (test code = 9.1 mg/dL 8.6-10.6 1951861660) eGFR Calculation mL/min/1.73m2 (Non-) (test code = 1809685498) eGFR Calculation mL/min/1.73m2 () (test code = 3598731690) ALYSSA (test code = ALYSSA) Association of [...] tests). Lab Interpretation Abnormal (test code = 32463-3) [facility] StationaPTT2020-03-03 11:00:00 Test Item Value Reference Range Interpretation Comments APTT Patient (test See_Comment H [Automat ed code = 3173-2) message] The system which generated this result transmitted reference range : 23 - 38 Seconds . The reference range was not used to interpr et this result as normal/abnormal . ALYSSA (test code = ALYSSA) The [facility] patient population mean normal value for aPTT is 30 seconds. Lab Interpretation Abnormal (test code = 00792-3) [facility] WITH [id number] 10:43:00 Test Item Value Reference Range Interpretation Comments WBC (test code = See_Comment [Automated message] 6690-2) The system [employer] generated this result transmitted ref erence range: 4.20 - 1 0.70 10*3/?L. The re ference range was not u sed to interpret this result as normal/abnor mal. RBC (test code = See_Comment [Automated message] 789-8) The system [employer] generated this result transmitted ref erence [...] RDW-SD (test code 41.5 fL 38.5-51.6 = 38753-7) RDW-CV (test code 12.8 % 12.1-15.4 = 788-0) PLT (test code = See_Comment [Automated message] 777-3) The system [employer] generated this result transmitted ref erence range: 150 - 32 8 10*3/?L. The re ference range was not u sed to interpret this result as normal/abnor mal. MPV (test code = 10.7 fL 9.8-13 82047-7) NRBC/100 WBC (test See_Comment [Automat ed message] code = 3752015610) The syste m which generated this result transmitted ref erence range: 0.0 - 10 .0 /100 WBCs. The refer ence range was not u sed to interpret this result as normal/abnor mal. NRBC x10^3 (test <0.01 See_Comment [Automated message] code = 5862672751) The syste m which generated this result transmitted ref erence range: 10*3/?L. The reference range was not used to interpr et this result as normal/abnormal . GRAN MAT (NEUT) % 56.1 % (test code = 770-8) IMM GRAN % (test 0.30 % code = 6475460585) LYMPH % (test code 29.5 % = 736-9) MONO % (test code 9.9 % = 5905-5) EOS % (test code = 3.3 % 713-8) BASO % (test code 0.9 % = 706-2) GRAN MAT 3.73 10*3/uL 1.99-6.95 x10^3(ANC) (test code = 0190189628) IMM GRAN x10^3 <0.03 0-0.06 (test code = 0829193124) LYMPH x10^3 (test 1.96 10*3/uL 1.09-3.23 code = 731-0) MONO x10^3 (test 0.66 10*3/uL 0.36-1.02 code = 742-7) EOS x10^3 (test 0.22 10*3/uL 0.06-0.53 code = 711-2) BASO x10^3 (test 0.06 10*3/uL 0.01-0.09 code = 704-7) [facility] GLUCOSE (AUTOMATED)2020-01-17 01:49:00 Test Item Value Reference Range Interpretation Comments POCT GLU (test code = 6203321815) 305 mg/dL 70-110 H Lab Interpretation (test code = Abnormal 49296-0) [facility] GLUCOSE (AUTOMATED)2020-01-17 00:01:00 Test Item Value Reference Range Interpretation Comments POCT GLU (test code = 3415633258) 271 mg/dL 70-110 H Lab Interpretation (test code = Abnormal 67568-5) [facility] StationaPTT2020-03-02 22:23:00 Test Item Value Reference Range Interpretation Comments APTT Patient (test See_Comment H [Automat ed code = 3173-2) message] The system which generated this result transmitted reference range : 23 - 38 Seconds . The reference range was not used to interpr et this result as normal/abnormal . ALYSSA (test code = ALYSSA) The [facility] patient population mean normal value for aPTT is 30 seconds. Lab Interpretation Abnormal (test code = 81215-0) [facility] StationTROPONIN [id number] 21:22:00 Test Item Value Reference Range Interpretation Comments TROPONIN I (test 0.061 ng/mL See_Comment H [Automated code = 4905861215) message] The system which generated this result [...] ? Lab Interpretation Abnormal (test code = 78709-4) [facility] StationPOCT GLUCOSE (AUTOMATED)2020-01-16 17:37:00 Test Item Value Reference Range Interpretation Comments POCT GLU (test code = 5107552780) 271 mg/dL 70-110 H Lab Interpretation (test code = Abnormal 32310-3) [facility] StationaPTT2020-03-02 12:47:00 Test Item Value Reference Range Interpretation Comments APTT Patient (test See_Comment HH [Automat ed code = 3173-2) message] The system which generated this result transmitted reference range : 23 - 38 Seconds . The reference range was not used to interpr et this result as normal/abnormal . ALYSSA (test code = ALYSSA) The [facility] patient population mean normal value for aPTT is 30 seconds. Lab Interpretation Abnormal (test code = 00951-5) [facility] StationTROPONIN [id number] 12:35:00 Test Item Value Reference Range Interpretation Comments TROPONIN I (test 0.074 ng/mL See_Comment H [Automated code = 3378893591) message] The system which generated this result [...] ? Lab Interpretation Abnormal (test code = 14984-7) [facility] StationLIPID PANEL (13954)(TOTAL CHOLESTEROL, TRIGLYCERIDES, HDL)2020-01-16 12:23:00 Test Item Value Reference Range Interpretation Comments CHOL (test code = 95 mg/dL 120-200 L 2069241908) HDL (test code = 44 mg/dL >40 0068183117) HDLC RATIO (test code = See_Comment [Au tomated message] 7342787960) The system [employer] generated this result transmitted ref erence range: <=5.0. T he reference range was not used to int erpret this result as normal/abnormal . TRIG (test code = 89 mg/dL 30-170 0547618967) LDL CHOL (test code = 33 mg/dL See_Comment [Auto mated message] 20033-6) The system [employer] generated this result transmitted ref erence range: <=160. T he reference range was not used to int erpret this result as normal/abnormal . VLDL (test code = 18 mg/dL 5-60 2459292631) Lab Interpretation (test Abnormal code = 11021-8) [facility] StationGlycosylated Hemoglobin (A1C)2020-01-16 09:03:00 Test Item Value Reference [...] Indicated Lab Interpretation Abnormal (test code = 72594-2) [facility] StationCritical [id number] 05:48:18Charanjit Heck MD ? ? 01/15/2020 11:48 [...] review of old charts and examination of patientUnLamb Healthcare CenterProthrombin Time (PT) / [id number] 05:28:00 Test Item Value Reference Range Interpretation [...] tions. Lab Interpretation (test Normal code = 18154-5) [facility] StationaPTT2020-03-02 05:27:00 Test Item Value Reference Range Interpretation Comments APTT Patient (test See_Comment [Automat ed code = 3173-2) message] The system which generated this result transmitted reference range : 23 - 38 Seconds . The reference range was not used to interpr et this result as normal/abnormal . ALYSSA (test code = ALYSSA) The [facility] patient population mean normal value for aPTT is 30 seconds. Lab Interpretation Normal (test code = 64528-7) [facility] StationTroponin [id number] 05:11:00 Test Item Value Reference Range Interpretation Comments TROPONIN I (test 0.075 ng/mL See_Comment H [Automated code = 3123996783) message] The system which generated this result [...] ? Lab Interpretation Abnormal (test code = 71335-6) [facility] StationN-TERMINAL [id number] 05:08:00 Test Item Value Reference Range Interpretation Comments NT-proBNP (test code 896 pg/mL See_Comment H [Autom ated = 1960219362) message] The system which generated this result transmitted reference range : <=450. The reference range was not used to interpret this result as normal/abnormal . ALYSSA (test code = ALYSSA) Biotin has been reported to cause a negative bias, interpret results relative to patient's use of biotin. Lab Interpretation Abnormal (test code = 91183-8) [facility] (NA, K, CL, CO2, GLUCOSE, BUN, CREATININE, CA)2020-01-16 04:59:00 Test Item Value Reference Range Interpretation Comments NA (test code = 136 mmol/L 135-145 4609322733) K (test code = 4.0 mmol/L 3.5-5 6843765474) CL (test code = 101 mmol/L 98-108 4267878199) CO2 TOTAL (test code = 27 mmol/L 23-31 1639064889) AGAP (test code = 2-16 5698505441) BUN (test code = 17 mg/dL 7-23 0888272959) GLUCOSE (test code = 445 mg/dL 70-110 H 3134299627) CREATININE (test code = 1.29 mg/dL 0.6-1.25 H 0317513762) CALCIUM (test code = 8.8 mg/dL 8.6-10.6 1214729355) eGFR Calculation mL/min/1.73m2 (Non-) (test code = 5006149506) eGFR Calculation mL/min/1.73m2 () (test code = 2702884024) ALYSSA (test code = ALYSSA) Association of [...] tests). Lab Interpretation Abnormal (test code = 59326-5) [facility] (ALB, T.PRO, BILI T, BU/BC, ALT, AST, ALK PHOS)2020-01-16 04:59:00 Test Item Value Reference Range Interpretation Comments TOTAL BILI (test code = 6165563495) 1.3 mg/dL 0.1-1.1 H BILI UNCON (test code = 8791367245) 1.1 mg/dL 0.1-1.1 BILI CONJ (test code = 5532777134) 0.0 mg/dL 0-0.3 T PROTEIN (test code = 9426595014) 6.3 g/dL 6.3-8.2 ALBUMIN (test code = 5717646783) 3.9 g/dL 3.5-5 ALK PHOS (test code = 1273276504) 67 U/L 34-122 ALTv (test code = 1742-6) 15 U/L 5-50 AST(SGOT) (test code = 9774745157) 23 U/L 13-40 Lab Interpretation (test code = Abnormal 96045-1) [facility] 1 Dctg7279-14-56 04:54:13Impression: Moderate cardiomegaly without acute pulmonary process. RL: 460 AFC: [id number] Electronicallysigned by Esperanza Rosado MD, PhD at [...] place.IMPRESSIONImpression:Moderate cardiomegaly without acute pulmonary process.RL: 460AFC: [id number] signed by Esperanza Rosado MD, PhD at 01/15/2020 10:54 [facility] WITH VGNYWWVARUGD7709-87-72 04:51:00 Test Item Value Reference Range Interpretation Comments WBC (test code = See_Comment [Automated 90-2) message] The sy stem which generated this result transmitted reference range : 4.20 - 10.70 10*3/?L. The reference range was not used to interpret this result as normal/abnormal . RBC (test code = See_Comment L [Automated 935-8) message] The sy stem which generated this [...] RDW-SD (test code = 40.7 fL 38.5-51.6 87296-3) RDW-CV (test code = 12.8 % 12.1-15.4 788-0) PLT (test code = See_Comment L [Automated 777-3) message] The sy stem which generated this result transmitted reference range : 150 - 328 10*3/ ?L. The reference r corey was not used to interpret this result as normal/abnormal . MPV (test code = 10.6 fL 9.8-13 95993-1) IPF % (test code = 2.8 % 1.2-10.7 Platelet count 6392648498) measured by fluorescence method. NRBC/100 WBC (test See_Comment [Automat ed code = 6251064963) message] The system which generated this result transmitted reference range : 0.0 - 10.0 /100 WBCs. The refer ence range was not u sed to interpret th is result as normal/abnormal . NRBC x10^3 (test code <0.01 See_Comment [Auto mated = 6906835096) message] The s ystem which generated this result transmitted reference range : 10*3/?L. The reference range was not used to interpret this result as normal/abnormal . GRAN MAT (NEUT) % 56.0 % (test code = 770-8) IMM GRAN % (test code 0.20 % = 8549736960) LYMPH % (test code = 30.5 % 736-9) MONO % (test code = 9.6 % 5905-5) EOS % (test code = 2.8 % 713-8) BASO % (test code = 0.9 % 706-2) GRAN MAT x10^3(ANC) 2.98 10*3/uL 1.99-6.95 (test code = 4807884919) IMM GRAN x10^3 (test <0.03 0-0.06 code = 6903325438) LYMPH x10^3 (test code 1.62 10*3/uL 1.09-3.23 = 731-0) MONO x10^3 (test code 0.51 10*3/uL 0.36-1.02 = 742-7) EOS x10^3 (test code = 0.15 10*3/uL 0.06-0.53 711-2) BASO x10^3 (test code 0.05 10*3/uL 0.01-0.09 = 704-7) Lab Interpretation Abnormal (test code = 28932-4) [facility] Station[facility]Y2013-[facility] 10:30:00 Test Item Value Reference Range Interpretation Comments eGFR (test code = eGFR) 37 [facility]OvbkgqxEFNSAKHMP7169-96-23 10:30:00 Test Item Value Reference Range Interpretation Comments Sodium Lvl (test code = Sodium Lvl) 144 135-145 N [facility] SoutheastHotyzppDCJQEXZWJ7589-71-37 10:30:00 Test Item Value Reference Range Interpretation Comments Potassium Lvl (test code = Potassium 3.9 3.5-5.1 N Lvl) [facility] SoutheastHbgjeqwWKYDFIFXR2283-06-38 10:30:00 Test Item Value Reference Range Interpretation Comments Chloride Lvl (test code = Chloride Lvl) 104 95-109 [facility]YjnexhtMAVBXUPWV6851-61-97 10:30:00 Test Item Value Reference Range Interpretation Comments CO2 (test code = CO2) 26 24-32 N [facility] SoutheastSptnpoqEQQCGLWMJ9532-45-08 10:30:00 Test Item Value Reference Range Interpretation Comments Calcium Lvl (test code = Calcium Lvl) 8.6 8.5-10.5 N [facility] SoutheastVgnqivkTCHXBEGDO8236-23-27 10:30:00 Test Item Value Reference Range Interpretation Comments Glucose Lvl (test code = Glucose Lvl) 160 70-99 H [facility]QvccdlwUWEQOFYVX3233-64-65 10:30:00 Test Item Value Reference Range Interpretation Comments BUN (test code = BUN) 23 7-22 H [facility] SoutheastCxewuvkGZYGFLITJ7124-36-52 10:30:00 Test Item Value Reference Range Interpretation Comments Creatinine Lvl (test code = Creatinine 1.8 0.5-1.4 H Lvl) [facility] SoutheastLpwhkvhBFFDUSMSB3542-36-88 10:30:00 Test Item Value Reference Range Interpretation Comments AGAP (test code = AGAP) 17.9 10.0-20.0 N [facility]cosLgnskvrKTTNSCWDMX3923-17-10 10:30:00 Test Item Value Reference Range Interpretation Comments MPV (test code = MPV) 8.3 7.4-10.4 N [facility]cosKxtadyjIHNAQOVCTO3479-69-52 10:30:00 Test Item Value Reference Range Interpretation Comments RDW (test code = RDW) 13.6 11.5-14.5 N [facility]cosZvircqkOUJYEKOSXF9972-11-59 10:30:00 Test Item Value Reference Range Interpretation Comments MCHC (test code = MCHC) 34.5 32.0-36.0 N [facility]cosFhcyyztRUFUBILMQL6877-74-34 10:30:00 Test Item Value Reference Range Interpretation Comments Platelet (test code = Platelet) 155 133-450 N [facility]cosIfenogsCYOQVDOVPN4751-97-44 10:30:00 Test Item Value Reference Range Interpretation Comments MCH (test code = MCH) 33.0 pg 27.0-31.0 H [facility]cosDvhsqwaGFUNGWYRGB7061-76-75 10:30:00 Test Item Value Reference Range Interpretation Comments MCV (test code = MCV) 95.8 80.0-94.0 H [facility]cosGungrskIMZSKWITRZ0558-89-83 10:30:00 Test Item Value Reference Range Interpretation Comments WBC (test code = WBC) 4.6 3.7-10.4 N [facility]cosQiucwlsFFTZUCJJDG6346-27-81 10:30:00 Test Item Value Reference Range Interpretation Comments RBC (test code = RBC) 3.81 4.70-6.10 L [facility]cosBmdvfteOFOAWRXENK2317-17-66 10:30:00 Test Item Value Reference Range Interpretation Comments Hgb (test code = Hgb) 12.6 14.0-18.0 L [facility]cosDnvtxcjSRZSTKGRVK9420-71-83 10:30:00 Test Item Value Reference Range Interpretation Comments Hct (test code = Hct) 36.5 42.0-54.0 L [facility]cosLvcalrpGTNABFPGKK2942-41-30 10:30:00 Test Item Value Reference Range Interpretation Comments Lymphocytes # (test code = Lymphocytes 1.1 1.0-5.5 N #) [facility]cosBbhajxuBMUTOXBTKO4080-41-93 10:30:00 Test Item Value Reference Range Interpretation Comments Monocytes # (test code 0.6 See_Comment N [Aut omated message] The = Monocytes #) system which generated this result tra nsmitted reference range : <=0.8. The reference r corey was not used to int erpret this result as normal/abnormal . [facility]cosAuluovlTJDIQWEJDL1894-83-20 10:30:00 Test Item Value Reference Range Interpretation Comments Eosinophils # (test code 0.3 See_Comment N [A utomated message] The = Eosinophils #) system whic h generated this result tra nsmitted reference range : <=0.5. The reference r corey was not used to int erpret this result as normal/abnormal . [facility]cosTclfzqnIJGRNHHKQC2356-72-28 10:30:00 Test Item Value Reference Range Interpretation Comments Basophils # (test code 0.0 See_Comment N [Aut omated message] The = Basophils #) system which generated this result tra nsmitted reference range : <=0.2. The reference r corey was not used to int erpret this result as normal/abnormal . [facility]cosCoetwdoXVMSOKIREV9720-57-87 10:30:00 Test Item Value Reference Range Interpretation Comments Segs (test code = Segs) 56.4 45.0-75.0 N [facility] MarcosRabhvsvGDXHJNGIHX4612-04-04 10:30:00 Test Item Value Reference Range Interpretation Comments Segs-Bands # (test code = Segs-Bands #) 2.6 1.5-8.1 N [facility]cosCiaeykiEYCWPAAFNE6953-70-95 10:30:00 Test Item Value Reference Range Interpretation Comments Lymphocytes (test code = Lymphocytes) 24.8 20.0-40.0 N [facility]cosIhlwomxADXUSAQNQZ0548-15-15 10:30:00 Test Item Value Reference Range Interpretation Comments Monocytes (test code = Monocytes) 12.3 2.0-12.0 H [facility]cosEwpxvqsESIVSQAWUE3468-51-36 10:30:00 Test Item Value Reference Range Interpretation Comments Eosinophils (test code = 5.9 See_Comment H [A utomated message] The Eosinophils) system which ge nerated this result tra nsmitted reference range : <=4.0. The reference r corey was not used to int erpret this result as normal/abnormal . [facility]cosPdnncayGBWTUEIEQL7388-63-63 10:30:00 Test Item Value Reference Range Interpretation Comments Basophils (test code = 0.6 See_Comment N [Aut omated message] The Basophils) system which ge nerated this result tra nsmitted reference range : <=1.0. The reference r corey was not used to int erpret this result as normal/abnormal . [facility] SoutheastCqtrpsfQJKXXLKDP3811-20-62 10:30:00 Test Item Value Reference Range Interpretation Comments eGFR (test code = eGFR) 37 [facility] SoutheastBxkvcnjFNYNGNYUV4923-41-82 10:30:00 Test Item Value Reference Range Interpretation Comments Sodium Lvl (test code = Sodium Lvl) 144 135-145 N [facility] SoutheastDgqmfwcPVKKXPLOX5164-58-50 10:30:00 Test Item Value Reference Range Interpretation Comments Potassium Lvl (test code = Potassium 3.9 3.5-5.1 N Lvl) [facility] SoutheastMajuiybDKCSLETLY7085-72-46 10:30:00 Test Item Value Reference Range Interpretation Comments Chloride Lvl (test code = Chloride Lvl) 104 95-109 N [facility] SoutheastPjjjkqsYLXKZYSPE3513-23-28 10:30:00 Test Item Value Reference Range Interpretation Comments CO2 (test code = CO2) 26 24-32 N [facility] SoutheastOqvzgxvWUFHTARSO0317-30-41 10:30:00 Test Item Value Reference Range Interpretation Comments Calcium Lvl (test code = Calcium Lvl) 8.6 8.5-10.5 N [facility] SoutheastByzhhfdTWLQOAJMM9844-15-87 10:30:00 Test Item Value Reference Range Interpretation Comments Glucose Lvl (test code = Glucose Lvl) 160 70-99 H [facility] SoutheastPhoibjbIMILUKKOX4916-75-54 10:30:00 Test Item Value Reference Range Interpretation Comments BUN (test code = BUN) 23 7-22 H [facility] SoutheastDxypcujBVUWVBROP8121-21-21 10:30:00 Test Item Value Reference Range Interpretation Comments Creatinine Lvl (test code = Creatinine 1.8 0.5-1.4 H Lvl) [facility] SoutheastPqvrfpgXSKOIOSYK1382-53-97 10:30:00 Test Item Value Reference Range Interpretation Comments AGAP (test code = AGAP) 17.9 10.0-20.0 N [facility]cosTotemanAYJEOQJSJD5466-60-60 10:30:00 Test Item Value Reference Range Interpretation Comments MPV (test code = MPV) 8.3 7.4-10.4 N [facility]cosThhldepEVEMOCCXAY2980-68-48 10:30:00 Test Item Value Reference Range Interpretation Comments RDW (test code = RDW) 13.6 11.5-14.5 N [facility]cosAzpseceZMIHBXKXFZ3120-74-34 10:30:00 Test Item Value Reference Range Interpretation Comments MCHC (test code = MCHC) 34.5 32.0-36.0 N [facility]cosIextrcwAQQQOVXPED5824-68-60 10:30:00 Test Item Value Reference Range Interpretation Comments Platelet (test code = Platelet) 155 133-450 N [facility] MarcosLqlrzlwODLUAVHOXH2170-73-34 10:30:00 Test Item Value Reference Range Interpretation Comments MCH (test code = MCH) 33.0 pg 27.0-31.0 H [facility] MarcosSwbiozqTGYOXCRTCW5720-43-55 10:30:00 Test Item Value Reference Range Interpretation Comments MCV (test code = MCV) 95.8 80.0-94.0 H [facility] MarcosAsqkeieLYNIZCTHRS2961-73-06 10:30:00 Test Item Value Reference Range Interpretation Comments WBC (test code = WBC) 4.6 3.7-10.4 N [facility]cosQxafwatYVFSNBULOB4953-16-01 10:30:00 Test Item Value Reference Range Interpretation Comments RBC (test code = RBC) 3.81 4.70-6.10 L [facility] MarcosZtstrurTYLYFTSXSZ2632-83-22 10:30:00 Test Item Value Reference Range Interpretation Comments Hgb (test code = Hgb) 12.6 14.0-18.0 L [facility]cosIpueaatDTMBFLVYRH6121-28-78 10:30:00 Test Item Value Reference Range Interpretation Comments Hct (test code = Hct) 36.5 42.0-54.0 L [facility]cosMtkvgktWFRCHZHFMZ8559-47-18 10:30:00 Test Item Value Reference Range Interpretation Comments Lymphocytes # (test code = Lymphocytes 1.1 1.0-5.5 N #) [facility]cosUqlsnhbNZLTTOJEMM1352-98-04 10:30:00 Test Item Value Reference Range Interpretation Comments Monocytes # (test code 0.6 See_Comment N [Aut omated message] The = Monocytes #) system which generated this result tra nsmitted reference range : <=0.8. The reference r corey was not used to int erpret this result as normal/abnormal . [facility]cosYissqtpZNIUKHBMBT2579-33-45 10:30:00 Test Item Value Reference Range Interpretation Comments Eosinophils # (test code 0.3 See_Comment N [A utomated message] The = Eosinophils #) system whic h generated this result tra nsmitted reference range : <=0.5. The reference r corey was not used to int erpret this result as normal/abnormal . [facility]cosKzeinrdNMUBJRPMJG0244-76-37 10:30:00 Test Item Value Reference Range Interpretation Comments Basophils # (test code 0.0 See_Comment N [Aut omated message] The = Basophils #) system which generated this result tra nsmitted reference range : <=0.2. The reference r corey was not used to int erpret this result as normal/abnormal . [facility]cosVqlqbvwCYWDHPROYE7049-99-48 10:30:00 Test Item Value Reference Range Interpretation Comments Segs (test code = Segs) 56.4 45.0-75.0 N [facility] MarcosWvkjmaqCLWCBWMUMN5390-77-50 10:30:00 Test Item Value Reference Range Interpretation Comments Segs-Bands # (test code = Segs-Bands #) 2.6 1.5-8.1 N [facility]cosQgjdctcOEBZWNTXXD3222-39-93 10:30:00 Test Item Value Reference Range Interpretation Comments Lymphocytes (test code = Lymphocytes) 24.8 20.0-40.0 N [facility]cosBbmxwoeZAHSULITVE6088-31-16 10:30:00 Test Item Value Reference Range Interpretation Comments Monocytes (test code = Monocytes) 12.3 2.0-12.0 H [facility]cosCnclsawHIEJPPOWNY7255-28-90 10:30:00 Test Item Value Reference Range Interpretation Comments Eosinophils (test code = 5.9 See_Comment H [A utomated message] The Eosinophils) system which ge nerated this result tra nsmitted reference range : <=4.0. The reference r corey was not used to int erpret this result as normal/abnormal . [facility]cosUbgnsxiGUGXZPKTAX7531-23-22 10:30:00 Test Item Value Reference Range Interpretation Comments Basophils (test code = 0.6 See_Comment N [Aut omated message] The Basophils) system which ge nerated this result tra nsmitted reference range : <=1.0. The reference r corey was not used to int erpret this result as normal/abnormal . [facility] GLUCOSE AJYQTPY2845-72-99 22:11:00 Test Item Value Reference Range Interpretation Comments Gluc POC Lifscn (test code = Gluc POC 148 70-99 H Lifscn) [facility] GLUCOSE ZNKPAHC7284-66-93 22:11:00 Test Item Value Reference Range Interpretation Comments Gluc POC Lifscn (test code = Gluc POC 148 70-99 H Lifscn) [facility] GLUCOSE GCSMNQW0548-38-62 17:23:00 Test Item Value Reference Range Interpretation Comments Comment1 (test code = Comment1) Notify RN/ [facility] GLUCOSE LRJXWAI9000-69-45 17:23:00 Test Item Value Reference Range Interpretation Comments Gluc POC Lifscn (test code = Gluc POC 119 70-99 H Lifscn) [facility] GLUCOSE IRTKRVW7753-61-01 17:23:00 Test Item Value Reference Range Interpretation Comments Comment1 (test code = Comment1) Notify RN/ [facility] GLUCOSE JZNHQTD9524-74-36 17:23:00 Test Item Value Reference Range Interpretation Comments Gluc POC Lifscn (test code = Gluc POC 119 70-99 H Lifscn) [facility] GLUCOSE YKNMTDA1479-50-05 09:52:00 Test Item Value Reference Range Interpretation Comments Comment1 (test code = Comment1) Notify RN/ [facility] GLUCOSE OYTCVWG9972-10-82 09:52:00 Test Item Value Reference Range Interpretation Comments Gluc POC Lifscn (test code = Gluc POC 140 70-99 H Lifscn) [facility] GLUCOSE CXMMNBX0362-53-37 09:52:00 Test Item Value Reference Range Interpretation Comments Comment1 (test code = Comment1) Notify RN/ [facility] GLUCOSE ETUAAGB5351-40-29 09:52:00 Test Item Value Reference Range Interpretation Comments Gluc POC Lifscn (test code = Gluc POC 140 70-99 H Lifscn) [facility] GLUCOSE TFLTYMH7954-20-31 20:02:00 Test Item Value Reference Range Interpretation Comments Comment1 (test code = Comment1) Notify RN/ [facility] GLUCOSE GAQPKSD0237-66-16 20:02:00 Test Item Value Reference Range Interpretation Comments Comment1 (test code = Comment1) Durga [facility]/ [facility]RijbtueAYJDDVNQV2099-26-24 10:40:00 Test Item Value Reference Range Interpretation Comments AGAP (test code = AGAP) 18.8 10.0-20.0 N [facility] SoutheastDxqpncaWXJEVZRVQ5290-35-46 10:40:00 Test Item Value Reference Range Interpretation Comments eGFR (test code = eGFR) 49 [facility] SoutheastUqrwubwPMVACKLUD0323-90-99 10:40:00 Test Item Value Reference Range Interpretation Comments Creatinine Lvl (test code = Creatinine 1.4 0.5-1.4 N Lvl) [facility] SoutheastXeixsjiXNKUEOQDU1029-90-13 10:40:00 Test Item Value Reference Range Interpretation Comments Glucose Lvl (test code = Glucose Lvl) 143 70-99 H [facility] SoutheastAphnsweSELRQYBIP5484-58-55 10:40:00 Test Item Value Reference Range Interpretation Comments BUN (test code = BUN) 7 7-22 N [facility] SoutheastGddbnrdOXVSGUXPT0458-51-60 10:40:00 Test Item Value Reference Range Interpretation Comments CO2 (test code = CO2) 27 24-32 N [facility] SoutheastOzpgsnxFXIYTCSUX2840-80-60 10:40:00 Test Item Value Reference Range Interpretation Comments Calcium Lvl (test code = Calcium Lvl) 8.3 8.5-10.5 L [facility] SoutheastMvqrccnODZPAZIRL7685-05-28 10:40:00 Test Item Value Reference Range Interpretation Comments Sodium Lvl (test code = Sodium Lvl) 144 135-145 N [facility] SoutheastPhjhnvnMRNCIBFRR3202-54-21 10:40:00 Test Item Value Reference Range Interpretation Comments Potassium Lvl (test code = Potassium 3.8 3.5-5.1 N Lvl) [facility] SoutheastArocrfhGEYGWCUMY0430-18-67 10:40:00 Test Item Value Reference Range Interpretation Comments Chloride Lvl (test code = Chloride Lvl) 102 95-109 N [facility]cosCwejrulULXQXOEBYE1476-22-76 10:40:00 Test Item Value Reference Range Interpretation Comments Lymphocytes # (test code = Lymphocytes 0.7 1.0-5.5 L #) [facility]cosQxqncseWAMWYSQNTC1023-71-62 10:40:00 Test Item Value Reference Range Interpretation Comments Monocytes # (test code 0.5 See_Comment N [Aut omated message] The = Monocytes #) system which generated this result tra nsmitted reference range : <=0.8. The reference r corey was not used to int erpret this result as normal/abnormal . [facility]cosVzczdhfBOTGPVIHEK5270-80-37 10:40:00 Test Item Value Reference Range Interpretation Comments Monocytes (test code = Monocytes) 9.0 2.0-12.0 N [facility]cosBhwgwinMFUGNNMWWZ2809-00-59 10:40:00 Test Item Value Reference Range Interpretation Comments Eosinophils (test code = 2.3 See_Comment N [A utomated message] The Eosinophils) system which ge nerated this result tra nsmitted reference range : <=4.0. The reference r corey was not used to int erpret this result as normal/abnormal . [facility]cosCgwujosLWUAVFTJYR7652-65-88 10:40:00 Test Item Value Reference Range Interpretation Comments Eosinophils # (test code 0.1 See_Comment N [A utomated message] The = Eosinophils #) system whic h generated this result tra nsmitted reference range : <=0.5. The reference r corey was not used to int erpret this result as normal/abnormal . [facility]cosAtuvfoxKRGJLIVVCW9608-62-99 10:40:00 Test Item Value Reference Range Interpretation Comments Basophils # (test code 0.0 See_Comment N [Aut omated message] The = Basophils #) system which generated this result tra nsmitted reference range : <=0.2. The reference r corey was not used to int erpret this result as normal/abnormal . [facility]cosEmzzgtpZGRLLAALKS5276-17-92 10:40:00 Test Item Value Reference Range Interpretation Comments Segs (test code = Segs) 76.0 45.0-75.0 H [facility]cosXncwwpgXCXGVUAJHC1516-89-80 10:40:00 Test Item Value Reference Range Interpretation Comments Lymphocytes (test code = Lymphocytes) 12.2 20.0-40.0 L [facility]cosUtfapiwUZOUJKQBTR7157-49-30 10:40:00 Test Item Value Reference Range Interpretation Comments Segs-Bands # (test code = Segs-Bands #) 4.6 1.5-8.1 N [facility]cosKqjrucsIRTRNDWYIL8632-08-07 10:40:00 Test Item Value Reference Range Interpretation Comments Basophils (test code = 0.5 See_Comment N [Aut omated message] The Basophils) system which ge nerated this result tra nsmitted reference range : <=1.0. The reference r corey was not used to int erpret this result as normal/abnormal . [facility] MarcosLwsgadiDQAICWICKQ5593-89-00 10:40:00 Test Item Value Reference Range Interpretation Comments RDW (test code = RDW) 13.1 11.5-14.5 N [facility]cosQyzhgcdHVSUBIKHMU4309-46-32 10:40:00 Test Item Value Reference Range Interpretation Comments MPV (test code = MPV) 8.3 7.4-10.4 N [facility] MarcosAadlgiiKNJUIZPSAE8687-18-66 10:40:00 Test Item Value Reference Range Interpretation Comments WBC (test code = WBC) 6.0 3.7-10.4 N [facility]cosOdihswlUXCBKZJWEG5205-83-41 10:40:00 Test Item Value Reference Range Interpretation Comments Hct (test code = Hct) 35.6 42.0-54.0 L [facility]cosQvkdkpnRJVOIJIDRD6543-24-66 10:40:00 Test Item Value Reference Range Interpretation Comments RBC (test code = RBC) 3.68 4.70-6.10 L [facility]NablqpcDLGCVUGNCM0334-29-96 10:40:00 Test Item Value Reference Range Interpretation Comments Hgb (test code = Hgb) 12.3 14.0-18.0 L [facility]cosBpqmyidWOAMCWYWAO8250-70-48 10:40:00 Test Item Value Reference Range Interpretation Comments MCV (test code = MCV) 96.8 80.0-94.0 H [facility]cosGuaejuqEAUMBYESWU4128-36-54 10:40:00 Test Item Value Reference Range Interpretation Comments MCH (test code = MCH) 33.5 pg 27.0-31.0 H [facility]cosMhrarhaXFSTRBJAWN4258-71-68 10:40:00 Test Item Value Reference Range Interpretation Comments MCHC (test code = MCHC) 34.6 32.0-36.0 N [facility]cosVoaponkERMZPKYRPS2184-58-84 10:40:00 Test Item Value Reference Range Interpretation Comments Platelet (test code = Platelet) 108 133-450 L [facility]KizvazyRVAHQPEPY2380-66-73 10:40:00 Test Item Value Reference Range Interpretation Comments AGAP (test code = AGAP) 18.8 10.0-20.0 N [facility] SoutheastCrhrdbsSFPDZAUID1146-15-74 10:40:00 Test Item Value Reference Range Interpretation Comments eGFR (test code = eGFR) 49 [facility] SoutheastYqvrlohFHILRTBMO2382-73-65 10:40:00 Test Item Value Reference Range Interpretation Comments Creatinine Lvl (test code = Creatinine 1.4 0.5-1.4 N Lvl) [facility] SoutheastUzcurefHEVDBPEKZ3058-64-15 10:40:00 Test Item Value Reference Range Interpretation Comments Glucose Lvl (test code = Glucose Lvl) 143 70-99 H [facility] SoutheastCdgzxorOAMLTBJWC9749-56-32 10:40:00 Test Item Value Reference Range Interpretation Comments BUN (test code = BUN) 7 7-22 N [facility] SoutheastFwpnvmkJSVJUXYYS7140-43-66 10:40:00 Test Item Value Reference Range Interpretation Comments CO2 (test code = CO2) 27 24-32 N [facility] SoutheastZmgjdmsRAIQRUUSJ8594-00-14 10:40:00 Test Item Value Reference Range Interpretation Comments Calcium Lvl (test code = Calcium Lvl) 8.3 8.5-10.5 L [facility] SoutheastBvilkmrQFFMRSMHP2922-21-26 10:40:00 Test Item Value Reference Range Interpretation Comments Sodium Lvl (test code = Sodium Lvl) 144 135-145 N [facility] SoutheastNyxolhvPWUDYFRAV9543-30-17 10:40:00 Test Item Value Reference Range Interpretation Comments Potassium Lvl (test code = Potassium 3.8 3.5-5.1 N Lvl) [facility] SoutheastZnkzbnyDPTYTNHAT5939-09-00 10:40:00 Test Item Value Reference Range Interpretation Comments Chloride Lvl (test code = Chloride Lvl) 102 95-109 N [facility]cosNttmcpuGATENFMEZN3820-40-33 10:40:00 Test Item Value Reference Range Interpretation Comments Lymphocytes # (test code = Lymphocytes 0.7 1.0-5.5 L #) [facility]cosXffqsqxJCLQOICYDV5644-78-12 10:40:00 Test Item Value Reference Range Interpretation Comments Monocytes # (test code 0.5 See_Comment N [Aut omated message] The = Monocytes #) system which generated this result tra nsmitted reference range : <=0.8. The reference r corey was not used to int erpret this result as normal/abnormal . [facility]cosSprrcwkEMXURJXJHI0026-94-47 10:40:00 Test Item Value Reference Range Interpretation Comments Monocytes (test code = Monocytes) 9.0 2.0-12.0 N [facility]cosYzoonhmPUOIFTAATC5756-80-48 10:40:00 Test Item Value Reference Range Interpretation Comments Eosinophils (test code = 2.3 See_Comment N [A utomated message] The Eosinophils) system which ge nerated this result tra nsmitted reference range : <=4.0. The reference r corey was not used to int erpret this result as normal/abnormal . [facility]cosKdobqisIOLESOHJCV5574-95-16 10:40:00 Test Item Value Reference Range Interpretation Comments Eosinophils # (test code 0.1 See_Comment N [A utomated message] The = Eosinophils #) system whic h generated this result tra nsmitted reference range : <=0.5. The reference r corey was not used to int erpret this result as normal/abnormal . [facility]cosBblsjwiFIDKMPMRWE1116-93-58 10:40:00 Test Item Value Reference Range Interpretation Comments Basophils # (test code 0.0 See_Comment N [Aut omated message] The = Basophils #) system which generated this result tra nsmitted reference range : <=0.2. The reference r corey was not used to int erpret this result as normal/abnormal . [facility]cosLhhvmyrTWLMIMZTKF4938-67-18 10:40:00 Test Item Value Reference Range Interpretation Comments Segs (test code = Segs) 76.0 45.0-75.0 H [facility]cosUakiyqbTSIBIGLJTQ6396-59-57 10:40:00 Test Item Value Reference Range Interpretation Comments Lymphocytes (test code = Lymphocytes) 12.2 20.0-40.0 L [facility]cosSjvcoziRHTEVIAIXY4685-53-68 10:40:00 Test Item Value Reference Range Interpretation Comments Segs-Bands # (test code = Segs-Bands #) 4.6 1.5-8.1 N [facility]cosJnwrhlsWMJFVOLUUD3443-12-77 10:40:00 Test Item Value Reference Range Interpretation Comments Basophils (test code = 0.5 See_Comment N [Aut omated message] The Basophils) system which ge nerated this result tra nsmitted reference range : <=1.0. The reference r corey was not used to int erpret this result as normal/abnormal . [facility]cosEnervbrGAEGAWWKNL4938-80-88 10:40:00 Test Item Value Reference Range Interpretation Comments RDW (test code = RDW) 13.1 11.5-14.5 N [facility]cosVjtsnbsRSJOTQJGJN8101-45-23 10:40:00 Test Item Value Reference Range Interpretation Comments MPV (test code = MPV) 8.3 7.4-10.4 N [facility]cosHntugsjLRNSBNPBPK1659-99-86 10:40:00 Test Item Value Reference Range Interpretation Comments WBC (test code = WBC) 6.0 3.7-10.4 N [facility]cosEbxhpyeHXNIYFQNZQ5196-77-64 10:40:00 Test Item Value Reference Range Interpretation Comments Hct (test code = Hct) 35.6 42.0-54.0 L [facility]cosNkzsfjpBLKVFRYOOJ4473-11-33 10:40:00 Test Item Value Reference Range Interpretation Comments RBC (test code = RBC) 3.68 4.70-6.10 L [facility]cosDrqirjjIDERWRWVRV1954-80-59 10:40:00 Test Item Value Reference Range Interpretation Comments Hgb (test code = Hgb) 12.3 14.0-18.0 L [facility]cosYcvseqgUIMWVPDVOT7877-32-85 10:40:00 Test Item Value Reference Range Interpretation Comments MCV (test code = MCV) 96.8 80.0-94.0 H [facility]cosReqhkarDRAIQRQKJM2234-59-91 10:40:00 Test Item Value Reference Range Interpretation Comments MCH (test code = MCH) 33.5 pg 27.0-31.0 H [facility]cosCdkxeqqKGOLEAKDCL4675-82-56 10:40:00 Test Item Value Reference Range Interpretation Comments MCHC (test code = MCHC) 34.6 32.0-36.0 N [facility]cosVggxodnAZJBNAQEMR4614-75-07 10:40:00 Test Item Value Reference Range Interpretation Comments Platelet (test code = Platelet) 108 133-450 L [facility] SoutheastQadfajuAFSFPOXBO4166-32-38 14:35:00 Test Item Value Reference Range Interpretation Comments AGAP (test code = AGAP) 15.1 10.0-20.0 N [facility] SoutheastSqfblkaUBNRYNQAO3547-75-50 14:35:00 Test Item Value Reference Range Interpretation Comments eGFR (test code = eGFR) 42 [facility] SoutheastOwynkzoDFPAMUZCF4573-65-21 14:35:00 Test Item Value Reference Range Interpretation Comments Calcium Lvl (test code = Calcium Lvl) 8.0 8.5-10.5 L [facility] SoutheastAthajqbGBHHZHQYH2381-68-66 14:35:00 Test Item Value Reference Range Interpretation Comments Chloride Lvl (test code = Chloride Lvl) 106 95-109 N [facility] SoutheastVspyparZGXRMKPCF0892-96-49 14:35:00 Test Item Value Reference Range Interpretation Comments CO2 (test code = CO2) 27 24-32 N [facility] SoutheastUlzpcgiTRXZRPDPS5580-79-23 14:35:00 Test Item Value Reference Range Interpretation Comments Glucose Lvl (test code = Glucose Lvl) 140 70-99 H [facility] SoutheastLufafaxEQQGAQPDT8176-75-44 14:35:00 Test Item Value Reference Range Interpretation Comments BUN (test code = BUN) 10 7-22 N [facility] SoutheastWcbopboCZQSXOIZH6029-19-55 14:35:00 Test Item Value Reference Range Interpretation Comments Potassium Lvl (test code = Potassium 4.1 3.5-5.1 N Lvl) [facility] SoutheastYtnwazjCEBVNLOOI3212-59-55 14:35:00 Test Item Value Reference Range Interpretation Comments Sodium Lvl (test code = Sodium Lvl) 144 135-145 N [facility] SoutheastWsuaivcMEUXDMUUR5323-26-40 14:35:00 Test Item Value Reference Range Interpretation Comments Creatinine Lvl (test code = Creatinine 1.6 0.5-1.4 H Lvl) [facility]cosPplfwhnVXFCBSFHSK4014-69-33 14:35:00 Test Item Value Reference Range Interpretation Comments Basophils # (test code 0.1 See_Comment N [Aut omated message] The = Basophils #) system which generated this result tra nsmitted reference range : <=0.2. The reference r corey was not used to int erpret this result as normal/abnormal . [facility]cosUeuvizhUFLVTVXOOG1932-18-86 14:35:00 Test Item Value Reference Range Interpretation Comments Segs (test code = Segs) 73.2 45.0-75.0 N [facility]cosTeipnpnEAHGIOBZYS9323-45-77 14:35:00 Test Item Value Reference Range Interpretation Comments Eosinophils (test code = 2.4 See_Comment N [A utomated message] The Eosinophils) system which ge nerated this result tra nsmitted reference range : <=4.0. The reference r corey was not used to int erpret this result as normal/abnormal . [facility]cosZiiztcoBJPBKCOROQ6874-50-11 14:35:00 Test Item Value Reference Range Interpretation Comments Lymphocytes (test code = Lymphocytes) 13.7 20.0-40.0 L [facility]cosRnykrngPWAFQTZVES7710-03-68 14:35:00 Test Item Value Reference Range Interpretation Comments Monocytes (test code = Monocytes) 9.8 2.0-12.0 N [facility]cosOgdhvbbNXPAOHSBUQ8337-68-51 14:35:00 Test Item Value Reference Range Interpretation Comments Eosinophils # (test code 0.1 See_Comment N [A utomated message] The = Eosinophils #) system whic h generated this result tra nsmitted reference range : <=0.5. The reference r corey was not used to int erpret this result as normal/abnormal . [facility]cosHczvckiYELIPVVTGS7594-06-03 14:35:00 Test Item Value Reference Range Interpretation Comments Monocytes # (test code 0.6 See_Comment N [Aut omated message] The = Monocytes #) system which generated this result tra nsmitted reference range : <=0.8. The reference r corey was not used to int erpret this result as normal/abnormal . [facility]cosPmjfxcqQLHGJUQEXP0241-82-01 14:35:00 Test Item Value Reference Range Interpretation Comments Lymphocytes # (test code = Lymphocytes 0.8 1.0-5.5 L #) [facility]cosXrxmvtzPDOFHPDNVU0250-96-16 14:35:00 Test Item Value Reference Range Interpretation Comments Segs-Bands # (test code = Segs-Bands #) 4.2 1.5-8.1 N [facility]cosBaaaszyQBYKMYCYPM9057-15-18 14:35:00 Test Item Value Reference Range Interpretation Comments Basophils (test code = 0.9 See_Comment N [Aut omated message] The Basophils) system which ge nerated this result tra nsmitted reference range : <=1.0. The reference r corey was not used to int erpret this result as normal/abnormal . [facility]cosPrmtmfmKCBJTQHNKC3344-95-94 14:35:00 Test Item Value Reference Range Interpretation Comments Platelet (test code = Platelet) 116 133-450 L [facility]cosUbaxedrEHOMNIOFQJ1837-30-69 14:35:00 Test Item Value Reference Range Interpretation Comments RDW (test code = RDW) 14.2 11.5-14.5 N [facility]cosUkoybhaZOYFLJGULP1823-69-34 14:35:00 Test Item Value Reference Range Interpretation Comments MPV (test code = MPV) 7.7 7.4-10.4 N [facility]cosGqygaurTDHJCQCNTZ7348-93-70 14:35:00 Test Item Value Reference Range Interpretation Comments Hct (test code = Hct) 33.5 42.0-54.0 L [facility]cosXnhdzplFHUNYMZQVT3330-88-80 14:35:00 Test Item Value Reference Range Interpretation Comments MCV (test code = MCV) 95.6 80.0-94.0 H [facility]cosFqqlirdFPWFIRRKME2346-07-10 14:35:00 Test Item Value Reference Range Interpretation Comments MCHC (test code = MCHC) 34.3 32.0-36.0 N [facility]cosJunesckEEQNBHBYHE6404-30-34 14:35:00 Test Item Value Reference Range Interpretation Comments MCH (test code = MCH) 32.8 pg 27.0-31.0 H [facility]cosGkxrxvsFUIEGGQJTX6506-67-70 14:35:00 Test Item Value Reference Range Interpretation Comments Hgb (test code = Hgb) 11.5 14.0-18.0 L [facility]cosZpqnzvxMPBXYYVQPG8032-09-72 14:35:00 Test Item Value Reference Range Interpretation Comments RBC (test code = RBC) 3.51 4.70-6.10 L [facility]cosWjhughkFDAHNIBOPK4592-34-01 14:35:00 Test Item Value Reference Range Interpretation Comments WBC (test code = WBC) 5.8 3.7-10.4 N [facility] SoutheastUqolrdeWZKDLTRTI3161-58-72 14:35:00 Test Item Value Reference Range Interpretation Comments AGAP (test code = AGAP) 15.1 10.0-20.0 N [facility] SoutheastYlwdenvAAAMTIUCZ4046-06-51 14:35:00 Test Item Value Reference Range Interpretation Comments eGFR (test code = eGFR) 42 [facility] SoutheastFndqtviFYMPDVGJL0852-15-27 14:35:00 Test Item Value Reference Range Interpretation Comments Calcium Lvl (test code = Calcium Lvl) 8.0 8.5-10.5 L [facility] SoutheastQtqrctfFCHZSHSOD3889-04-91 14:35:00 Test Item Value Reference Range Interpretation Comments Chloride Lvl (test code = Chloride Lvl) 106 95-109 N [facility] SoutheastVcihvieJTTBPJZFL1567-68-20 14:35:00 Test Item Value Reference Range Interpretation Comments CO2 (test code = CO2) 27 24-32 N [facility] SoutheastXsfgqnhNFELCLEZB6285-48-31 14:35:00 Test Item Value Reference Range Interpretation Comments Glucose Lvl (test code = Glucose Lvl) 140 70-99 H [facility] SoutheastCxyegftELJTQJSLB4269-54-59 14:35:00 Test Item Value Reference Range Interpretation Comments BUN (test code = BUN) 10 7-22 N [facility] SoutheastBgkvgpbBWAOQYFBX4486-94-84 14:35:00 Test Item Value Reference Range Interpretation Comments Potassium Lvl (test code = Potassium 4.1 3.5-5.1 N Lvl) [facility] SoutheastKtltmreHQBFRNKMC7775-80-97 14:35:00 Test Item Value Reference Range Interpretation Comments Sodium Lvl (test code = Sodium Lvl) 144 135-145 N [facility] SoutheastTaubkdeIDAECREQN5806-58-28 14:35:00 Test Item Value Reference Range Interpretation Comments Creatinine Lvl (test code = Creatinine 1.6 0.5-1.4 H Lvl) [facility]cosOmwifecELTVECSSWJ0428-63-09 14:35:00 Test Item Value Reference Range Interpretation Comments Basophils # (test code 0.1 See_Comment N [Aut omated message] The = Basophils #) system which generated this result tra nsmitted reference range : <=0.2. The reference r corey was not used to int erpret this result as normal/abnormal . [facility]cosYybybpgVTDAOWWWJJ8161-31-62 14:35:00 Test Item Value Reference Range Interpretation Comments Segs (test code = Segs) 73.2 45.0-75.0 N [facility]cosZsclmdhFFBMLXHVKA4612-84-29 14:35:00 Test Item Value Reference Range Interpretation Comments Eosinophils (test code = 2.4 See_Comment N [A utomated message] The Eosinophils) system which ge nerated this result tra nsmitted reference range : <=4.0. The reference r corey was not used to int erpret this result as normal/abnormal . [facility]cosBobtlyzRPUMZPLBAS5482-86-04 14:35:00 Test Item Value Reference Range Interpretation Comments Lymphocytes (test code = Lymphocytes) 13.7 20.0-40.0 L [facility]cosBhzvvvnXBBFZUAJWB0314-79-28 14:35:00 Test Item Value Reference Range Interpretation Comments Monocytes (test code = Monocytes) 9.8 2.0-12.0 N [facility]cosXgiqwehRJHPBHSXCZ8040-65-76 14:35:00 Test Item Value Reference Range Interpretation Comments Eosinophils # (test code 0.1 See_Comment N [A utomated message] The = Eosinophils #) system whic h generated this result tra nsmitted reference range : <=0.5. The reference r corey was not used to int erpret this result as normal/abnormal . [facility]cosBmggfuqZILFIDANDO5139-29-46 14:35:00 Test Item Value Reference Range Interpretation Comments Monocytes # (test code 0.6 See_Comment N [Aut omated message] The = Monocytes #) system which generated this result tra nsmitted reference range : <=0.8. The reference r corey was not used to int erpret this result as normal/abnormal . [facility]cosZvvyfnzYQRBGCPWJT9788-11-75 14:35:00 Test Item Value Reference Range Interpretation Comments Lymphocytes # (test code = Lymphocytes 0.8 1.0-5.5 L #) [facility]cosNlmiigvMYSJHVEZUB0613-23-00 14:35:00 Test Item Value Reference Range Interpretation Comments Segs-Bands # (test code = Segs-Bands #) 4.2 1.5-8.1 N [facility]cosWhbuyswOQCVQMHLNS4922-23-46 14:35:00 Test Item Value Reference Range Interpretation Comments Basophils (test code = 0.9 See_Comment N [Aut omated message] The Basophils) system which ge nerated this result tra nsmitted reference range : <=1.0. The reference r corey was not used to int erpret this result as normal/abnormal . [facility]cosKypubviHBWRLJLRNG5575-67-09 14:35:00 Test Item Value Reference Range Interpretation Comments Platelet (test code = Platelet) 116 133-450 L [facility]cosSujkllrALTNCWWKNE8226-45-87 14:35:00 Test Item Value Reference Range Interpretation Comments RDW (test code = RDW) 14.2 11.5-14.5 N [facility]cosRmkbjteBAFHYPWIGA8330-49-75 14:35:00 Test Item Value Reference Range Interpretation Comments MPV (test code = MPV) 7.7 7.4-10.4 N [facility]cosNlndhtsESGVXLLIZD0896-77-67 14:35:00 Test Item Value Reference Range Interpretation Comments Hct (test code = Hct) 33.5 42.0-54.0 L [facility]qfedzDLNGXUKHGR8288-85-65 14:35:00 Test Item Value Reference Range Interpretation Comments MCV (test code = MCV) 95.6 80.0-94.0 H [facility]cosAqxsashKIBIPDXQWF5811-17-93 14:35:00 Test Item Value Reference Range Interpretation Comments MCHC (test code = MCHC) 34.3 32.0-36.0 N [facility]AmimgtgGJQOBCJXGF0347-93-50 14:35:00 Test Item Value Reference Range Interpretation Comments MCH (test code = MCH) 32.8 pg 27.0-31.0 H [facility]cosBcdewriVFFJKCRRPI1862-10-61 14:35:00 Test Item Value Reference Range Interpretation Comments Hgb (test code = Hgb) 11.5 14.0-18.0 L [facility]cosKhsrygsRHUWIBQDQQ1376-11-44 14:35:00 Test Item Value Reference Range Interpretation Comments RBC (test code = RBC) 3.51 4.70-6.10 L [facility]cosBigvpawEJDPZAVOWD5019-03-17 14:35:00 Test Item Value Reference Range Interpretation Comments WBC (test code = WBC) 5.8 3.7-10.4 N [facility] AYCALAK3981-31-83 10:50:00 Test Item Value Reference Range Interpretation Comments ABO/Rh (test code = ABO/Rh) [facility] WFFHBEK8145-85-94 10:50:00 Test Item Value Reference Range Interpretation Comments Antibody Scrn (test Negative (03/03/2013 N code = Antibody Scrn) 05:50:00) [facility] ADXZWLH9094-72-65 10:50:00 Test Item Value Reference Range Interpretation Comments ABO/Rh (test code = ABO/Rh) A POS [facility] myhomemove RTNEHDC9058-69-00 10:50:00 Test Item Value Reference Range Interpretation Comments Antibody Scrn (test Negative (03/03/2013 N code = Antibody Scrn) 05:50:00) [facility] GLUCOSE ORPNXHZ8378-15-63 14:49:00 Test Item Value Reference Range Interpretation Comments Gluc POC [facility] (test code = Gluc POC 126 70-99 H [facility]) [facility] GLUCOSE EEHTBBI0144-18-83 14:49:00 Test Item Value Reference Range Interpretation Comments Gluc POC [facility] (test code = Gluc POC 126 70-99 H [facility]) [facility]
[2022-08-22] MEDS ORDERED: DOBUTAMINE 250 MG/250 ML BAG IV ONE (03:38)
[2022-08-22 04:46] LABS: SARS-CoV-2 Antigen Rapid Res Negative (Negative)
[2022-08-22 04:47] LABS: Absolute Lymphocytes (CBC) 1.5 K/uL (0.7-4.9); Hematocrit 29.5 % (39.6-49.0); Lymphocytes % 21.6 % (15.3-44.8); MCV 111.3 fL (80-100); MPV 7.5 fL (7.6-11.3); RBC Red Blood Cell Count 2.65 M/uL (4.33-5.43)
[2022-08-22 04:52] LABS: Protime INR 1.28
[2022-08-22 05:09] LABS: Magnesium 1.7 mg/dL (1.8-2.4); Potassium 4.5 mmol/L (3.5-5.1)
[2022-08-22 05:11] LABS: Troponin High Sensitivity 340.3 pg/mL (<58.9)
[2022-08-22 05:14] LABS: Anisocytosis 1+; Blood Morphology Comment NOTED (NOT SEEN); Macrocytosis 2+; Platelet Estimate ADEQ; White Blood Cell Scan OK (OK)
--- NOTE | 2022-08-22 05:28 | EDPHYS ---
Physician Documentation [facility] Name: Demetrius Sarmiento Age: 82 yrs Sex: Male : 1940 Arrival Date: 08/22/2022 Time: 03:24 Bed 6 Private MD: ED Physician Robert Clements HPI: 08/22 03:20 This 82 yrs old Male presents to ER via EMS with complaints of back pain. ms3 03:20 82-year-old male with past medical history of Alzheimer's, coronary artery disease, ms3 diabetes, hyperlipidemia presents for left-sided back pain that became worse tonight while sleeping. Patient denies alleviating or inciting factors. Patient states pain is severe.. 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 - Social history:: Smoking status: unknown. ROS: 03:45 Constitutional: Negative for fever, and chills. Neck: Negative for injury, pain, and ms3 swelling, Cardiovascular: Negative for chest pain, and palpitations. Respiratory: Negative for shortness of breath, cough, wheezing, and pleuritic chest pain, Abdomen/GI: Negative for abdominal pain, nausea, vomiting, diarrhea, and constipation. 03:45 Back: Positive for pain at rest. 03:45 All other systems are negative. Exam: 03:19 ECG was reviewed by the Attending Physician. ms3 03:45 Constitutional: This is a well developed, well nourished patient who is awake, alert, ms3 and in no acute distress. Head/Face: Normocephalic, atraumatic. Chest/axilla: Normal chest wall appearance and motion. Nontender with no deformity. Respiratory: Lungs have equal breath sounds bilaterally, clear to auscultation and percussion. No rales, rhonchi or wheezes noted. No increased work of breathing, no retractions or nasal flaring. Skin: Warm, dry with normal turgor. Normal color with no rashes, no lesions, and no evidence of cellulitis. MS/ Extremity: Pulses equal, no cyanosis. Neurovascular intact. Full, normal range of motion. 03:45 Cardiovascular: Rate: normal, Rhythm: regular, Pulses: no pulse deficits are appreciated, Heart sounds: murmur, systolic. Vital Signs: 03:24 BP 71 / 49; Pulse 201; Resp 30; Temp 97.6(O); Pulse Ox 96% ; Weight 77 kg; Pain 10/10; vc1 03:50 BP 80 / 58; Pulse 65; Resp 15; Pulse Ox 97% ; vc1 04:10 BP 108 / 77; Pulse 66; Resp 12; Pulse Ox 99% ; vc1 04:32 BP 118 / 76; Pulse 100; Resp 11; Pulse Ox 100% ; vc1 04:40 BP 110 / 70; Pulse 103; Resp 12 S; Pulse Ox 100% on R/A; jb4 05:45 BP 110 / 75; Pulse 110; Resp 13; Pulse Ox 100% on R/A; jb4 06:15 BP 116 / 64; Pulse 114; Resp 13; Pulse Ox 100% on R/A; jb4 06:35 BP 109 / 65; Pulse 112; Resp 15; Pulse Ox 100% on R/A; jb4 07:18 BP 104 / 63; Pulse 111; Resp 16; Pulse Ox 100% on R/A; em6 Procedures: 03:25 Cardioversion: (synchronized) for treatment of V tach, with 150 joules X 1. Post ms3 procedure rhythm is sinus rhythm, the patient tolerated the procedure well. Moderate sedation: Pre-procedure assessment: the patient has been NPO an unknown amount of time prior to arrival, ASA physical classification: IV - severe disease that is life threatening, Airway assessment: able to maintain airway, can open mouth without difficulty, Mallampati classification of tongue size: III - uvula can be visualized, but faucial pillars and soft palate are not appreciated. MDM: 03:46 Patient medically screened. ms3 05:06 ED course: Patient's daughter Tiffany called the ED back and patient does not want ms3 intubation or CPR performed.. 06:00 Data reviewed: vital signs, nurses notes, lab test result(s), EKG, radiologic studies, ms3 and as a result, I will admit patient. Data interpreted: monitoring tech: rate is 112 beats/min, rhythm is sinus tachycardia, with no ectopy, Interpretation: normal rhythm, tachycardia, Pulse oximetry: on room air is 99 %. Interpretation: normal. Test interpretation: by ED physician or midlevel provider: ECG. Counseling: I had a detailed discussion with the patient and/or guardian regarding:. ED course: Called patient's "person to notify" Ronni Gooden and left voicemail that Mr Sarmiento is in the Emergency Department in critical condition.. ED course: Called Ellyn Sarmiento and she is unable to say if patient is DNR or not. Her sister is the POA and will not answer the phone at this hour.. ED course: Discussed case with [facility], and she accepts patient on behalf of Dr Crenshaw.. 08/22 03:33 Order name: Basic Metabolic Panel ms3 08/22 03:33 Order name: CBC with Diff ms3 08/22 03:33 Order name: Magnesium ms3 08/22 03:33 Order name: NT PRO-BNP ms3 08/22 03:33 Order name: Troponin HS ms3 08/22 03:57 Order name: SARS-COV-2 Antigen Rapid 08/22 04:41 Order name: PT-INR jb4 08/22 04:41 Order name: Lactate jb4 08/22 04:41 Order name: Ptt, Activated jb4 08/22 04:47 Order name: SARS-COV-2 Antigen Rapid; Complete Time: 05:02 EDMS 08/22 04:48 Order name: CBC with Automated Diff; Complete Time: 05:18 EDMS 08/22 04:52 Order name: Protime (+INR); Complete Time: 05:02 EDMS 08/22 04:52 Order name: PTT, Activated Partial Thromb; Complete Time: 05:02 EDMS 08/22 05:12 Order name: Basic Metabolic Panel; Complete Time: 05:18 EDMS 08/22 05:12 Order name: Troponin High Sensitivity; Complete Time: 05:18 EDMS 08/22 05:12 Order name: NT PRO-BNP; Complete Time: 05:18 EDMS 08/22 05:12 Order name: Magnesium; Complete Time: 05:18 EDMS 08/22 05:15 Order name: CBC Smear Scan; Complete Time: 05:18 EDMS 08/22 05:31 Order name: Lactate; Complete Time: 05:32 EDMS 08/22 08:16 Order name: Glucose, Ancillary Testing EDMS 08/22 08:51 Order name: Lactate Sepsis 2 HR Follow-up EDMS 08/22 10:44 Order name: CBC with Automated Diff EDMS 08/22 11:00 Order name: Comprehensive Metabolic Panel EDMS 08/22 11:00 Order name: NT PRO-BNP EDMS 08/22 11:00 Order name: Magnesium EDMS 08/22 11:00 Order name: Creatine Phosphokinase EDMS 08/22 11:00 Order name: CKMB Creatine Kinase MB EDMS 08/22 11:00 Order name: Troponin High Sensitivity EDMS 08/22 11:04 Order name: Lactate EDMS 08/22 11:07 Order name: Procalcitonin EDMS 08/22 03:33 Order name: XRAY Chest (1 view) ms3 08/22 03:33 Order name: EKG; Complete Time: 03:34 ms3 08/22 03:33 Order name: Cardiac monitoring; Complete Time: 04:00 ms3 08/22 03:33 Order name: EKG - Nurse/Tech; Complete Time: 04:00 ms3 08/22 03:33 Order name: IV Saline Lock; Complete Time: 04:00 ms3 08/22 03:33 Order name: Labs collected and sent; Complete Time: 04:00 ms3 08/22 03:33 Order name: O2 Per Protocol; Complete Time: 04:00 ms3 08/22 03:33 Order name: O2 Sat Monitoring; Complete Time: 04:00 ms3 08/22 04:33 Order name: CT Aorta for Dissection ms3 08/22 06:39 Order name: CT EDMS 08/22 06:41 Order name: RAD EDMS 08/22 11:54 Order name: CBC Smear Scan EDMS 08/22 12:20 Order name: Glucose, Ancillary Testing EDMS 08/22 13:58 Order name: Lactate Sepsis 2 HR Follow-up EDMS 08/22 18:21 Order name: Glucose, Ancillary Testing EDMS EC:19 Rate is 200 beats/min. Rhythm is regular. QRS interval is prolonged. Clinical ms3 impression: Ventricular Tachycardia. Interpreted by me. Reviewed by me. 03:27 Rate is 68 beats/min. Rhythm is regular. Left axis deviation noted. ME interval is ms3 normal. QRS interval is normal. Clinical impression: NSR w/ Non-specific ST/T Changes. Interpreted by me. Reviewed by me. Administered Medications: 03:19 Drug: amiodarone 150 mg Volume: 100 ml; Route: IVPB; Infused Over: 10 mins; Site: right vc1 antecubital; 03:29 Follow up: Response: No adverse reaction; IV Status: Completed infusion; IV Intake: jb4 100ml 03:22 Drug: NS 0.9% 1000 ml Route: IV; Rate: 1000 ml; Site: right antecubital; vc1 04:00 Follow up: Response: No adverse reaction; IV Status: Completed infusion; IV Intake: jb4 1000ml 03:27 Drug: Midazolam 2 mg Route: IVP; Site: right antecubital; vc1 04:00 Follow up: Response: No adverse reaction; Marked relief of symptoms jb4 03:27 Drug: fentaNYL (PF) 100 mcg Route: IVP; Site: right antecubital; vc1 04:00 Follow up: Response: No adverse reaction; Marked relief of symptoms jb4 03:35 Drug: Levophed (norepinephrine) 0.1 mcg/kg/min Route: IV; Rate: calculated rate; Site: vc1 left antecubital; 05:00 Follow up: Site changed to left IJ central line. rate remains at 5mcg/min jb4 06:39 Follow up: IV Status: Order to discontinue infusion; Medication stopped, blood pressure jb4 maintaining normo tensive. 03:37 Drug: DOBUTamine (500 mg/250mL premix) 2.5 mcg/kg/min Route: IV; Rate: calculated rate; vc1 Site: left antecubital; 06:41 Follow up: Response: No adverse reaction; IV Status: Infusion continued upon admission jb4 07:15 Follow up: Response: No adverse reaction; dose is at 2 mcg/kg/min at this time em6 04:41 Not Given (Physician Discretion): Aspirin Chewable Tablet 324 mg PO once; 81 mg tablets jb4 x 4 Disposition Summary: 08/22/22 05:27 Hospitalization Ordered Hospitalization Status: Inpatient Admission ms3 Provider: Jose Crenshaw ms3 Condition: Stable ms3 Problem: new ms3 Symptoms: are unchanged ms3 Bed/Room Type: Standard ms3 Location: Intensive Care Unit(08/22/22 17:18) eb Room Assignment: 6-(08/22/22 17:18) eb Diagnosis - Ventricular tachycardia ms3 - Cardiogenic shock ms3 - Low back pain ms3 Forms: - Medication Reconciliation Form ms3 - SBAR form ms3 Critical care time excluding procedures: 06:20 Critical care time: Bedside Care: 40 minutes, Consultation: 10 minutes, Family ms3 Intervention: 12 minutes. Total time: 62 minutes Signatures: Dispatcher [employer] EDMary Alfaro RN RN Honey Busby Marcus, DO DO ms3 Ana Maria Martínez RN RN vc1 Alessia Fregoso, PA-C PA-C sb4 Ceasar Jenkins RN jb4 Saige Zhu RN em6 Corrections: (The following items were deleted from the chart) 05:39 05:27 Intensive Care Unit ms3 mw 05:39 05:27 ms3 mw 17:18 05:39 [facility] ER HOLD mw eb 17:18 05:39 ERHOLD- mw eb
--- NOTE | 2022-08-22 05:28 | ER ---
Nurse's Notes [facility] Name: Demetrius Sarmiento Age: 82 yrs Sex: Male : 1940 Arrival Date: 08/22/2022 Time: 03:24 Bed 6 Private MD: Diagnosis: Ventricular tachycardia;Cardiogenic shock;Low back pain Presentation: 08/22 03:24 Chief complaint: Patient states: "It hurts so bad". vc1 03:24 Coronavirus screen: At this time, the client does not indicate any symptoms associated vc1 with coronavirus-19. Ebola Screen: No symptoms or risks identified at this time. Initial Sepsis Screen: Does the patient meet any 2 criteria? RR > 20 per min. HR > 90 bpm. Yes Does the patient have a suspected source of infection? No. Patient's initial sepsis screen is negative. Risk Assessment: Do you want to hurt yourself or someone else? Patient reports no desire to harm self or others. Onset of symptoms was August 22, 2022. 03:24 Method Of Arrival: [facility]: [facility] vc1 03:37 Acuity: LANCE 1 tw5 Triage Assessment: 03:24 General: Appears distressed, uncomfortable, slender, Behavior is anxious, inappropriate vc1 for age, uncooperative. 03:24 Pain: Complains of pain in back Pain does not radiate. Pain currently is 10 out of 10 vc1 on a pain scale. Noted to be grimacing, moaning. Neuro: Solorzano Agitation-Sedation Scale (RASS): +2 Agitated Level of Consciousness is awake, Oriented to person. Cardiovascular: Patient's skin is warm and dry. Rhythm is ventricular tachycardia. Respiratory: Airway is patent Respiratory effort is even, unlabored, Respiratory pattern is tachypnea. GI: No deficits noted. : No deficits noted. Derm: No deficits noted. Musculoskeletal: Musculoskeletal: Reports pain in back. Historical: - Allergies: 03:44 No Known Allergies; vc1 - PMHx: 03:44 Alzheimer's disease; CAD; diabetes mellitus; Hypercholesterolemia; Hypertensive vc1 disorder; [place]; sciatica; Chronic back pain; - PSHx: 03:44 Nephrectomy; Nerve stimulator; vc1 - Immunization history:: Unknown. - Social history:: Smoking status: unknown. Screenin:24 Abuse screen: Denies threats or abuse. Nutritional screening: No deficits noted. vc1 Tuberculosis screening: No symptoms or risk factors identified. 03:24 Fall Risk None identified. vc1 Assessment: 03:40 Reassessment: See triage assessment. vc1 03:56 Reassessment:. Cardiovascular: Rhythm is. vc1 04:34 Reassessment: Pt now awakens to sternal rubs. jb4 04:36 Cardiovascular: Rhythm is sinus tachycardia. jb4 05:08 General: Dipti Iniguez- Daughter spoke to Dr. Clements and I regarding her fathers tw5 wishes. " He does not want any life support, no breathing tube, what I am trying to say is he is a do not resuscitate. If you have any further questions you can call me at [phone]" . 05:48 Reassessment: Pt is now awake and alert x3. Rhythm remains sinus tach respirations jb4 remain even and unlabored. 06:35 Reassessment: Pt is resting in bed with no s/s of pain or distress noted, respirations jb4 are even and unlabored. Levophed stopped. remains in sinus tach. 07:24 General: Appears comfortable, Behavior is cooperative. Pain: Pain: Complains of pain in em6 back Pain does not radiate. Pain currently is 4 out of 10 on a pain scale. Neuro: Level of Consciousness is awake, alert, obeys commands, Oriented to person, place, time, situation. Cardiovascular: Heart tones present Patient's skin is warm and dry. Rhythm is sinus tachycardia. Respiratory: Airway is patent Breath sounds are clear bilaterally. GI: No signs and/or symptoms were reported involving the gastrointestinal system. : No signs and/or symptoms were reported regarding the genitourinary system. EENT: No signs and/or symptoms were reported regarding the EENT system. Derm: No signs and/or symptoms reported regarding the dermatologic system. Musculoskeletal: No signs and/or symptoms reported regarding the musculoskeletal system. Vital Signs: 03:24 BP 71 / 49; Pulse 201; Resp 30; Temp 97.6(O); Pulse Ox 96% ; Weight 77 kg; Pain 10/10; vc1 03:50 BP 80 / 58; Pulse 65; Resp 15; Pulse Ox 97% ; vc1 04:10 BP 108 / 77; Pulse 66; Resp 12; Pulse Ox 99% ; vc1 04:32 BP 118 / 76; Pulse 100; Resp 11; Pulse Ox 100% ; vc1 04:40 BP 110 / 70; Pulse 103; Resp 12 S; Pulse Ox 100% on R/A; jb4 05:45 BP 110 / 75; Pulse 110; Resp 13; Pulse Ox 100% on R/A; jb4 06:15 BP 116 / 64; Pulse 114; Resp 13; Pulse Ox 100% on R/A; jb4 06:35 BP 109 / 65; Pulse 112; Resp 15; Pulse Ox 100% on R/A; jb4 07:18 BP 104 / 63; Pulse 111; Resp 16; Pulse Ox 100% on R/A; em6 ED Course: 03:20 EKG done, by ED staff, reviewed by Robert Clements DO. vc1 03:24 Patient arrived in ED. wm 03:29 Assist provider with cardioversion (synchronized) with pads, for treatment of V tach vc1 with 150 joules Set up for procedure. Performed by Robert Clements DO Monitored with security monitor, pulse ox, Post procedure rhythm is sinus rhythm. Patient tolerated well. 03:30 Inserted saline lock: 18 gauge in left antecubital area, using aseptic technique. vc1 03:32 Robert Clements DO is Attending Physician. ms3 03:37 Triage completed. tw5 03:50 Arm band placed on right wrist. vc1 03:53 Patient has correct armband on for positive identification. Bed in low position. Call vc1 light in reach. Side rails up X2. Client placed on continuous cardiac and pulse oximetry monitoring. NIBP monitoring applied. 04:20 Assisted provider with central line placement. Set up central line tray. Triple lumen vc1 line placed in left internal jugular. Line placed by Robert Clements DO Placement verified by CXR, blood return, Dressed with Tegaderm, Patient tolerated well. Was handwashing/sanitizing done immediately prior to procedure? Yes. Was patient positioned to in a way to prevent air embolism? Yes. Was procedure site sterilized? Yes, with chlorhexidine. Was the site allowed to dry? Yes. Was local anesthetic and/or sedation utilized? Yes. During the procedure, did the Practitioner(s) maintain a sterile field? Yes. Were unused ports clamped during insertion? Yes. Was blood aspirated from each lumen? Yes. After the procedure, did the Practitioner(s) clean the site and apply a sterile dressing? Yes. 04:26 Ceasar Jenkins, HERBIE is Primary Nurse. jb4 05:26 Jose Crenshaw MD is Hospitalizing Provider. ms3 06:35 Patient admitted, IV remains in place. jb4 Administered Medications: 03:19 Drug: amiodarone 150 mg Volume: 100 ml; Route: IVPB; Infused Over: 10 mins; Site: right vc1 antecubital; 03:29 Follow up: Response: No adverse reaction; IV Status: Completed infusion; IV Intake: jb4 100ml 03:22 Drug: NS 0.9% 1000 ml Route: IV; Rate: 1000 ml; Site: right antecubital; vc1 04:00 Follow up: Response: No adverse reaction; IV Status: Completed infusion; IV Intake: jb4 1000ml 03:27 Drug: Midazolam 2 mg Route: IVP; Site: right antecubital; vc1 04:00 Follow up: Response: No adverse reaction; Marked relief of symptoms jb4 03:27 Drug: fentaNYL (PF) 100 mcg Route: IVP; Site: right antecubital; vc1 04:00 Follow up: Response: No adverse reaction; Marked relief of symptoms jb4 03:35 Drug: Levophed (norepinephrine) 0.1 mcg/kg/min Route: IV; Rate: calculated rate; Site: vc1 left antecubital; 05:00 Follow up: Site changed to left IJ central line. rate remains at 5mcg/min jb4 06:39 Follow up: IV Status: Order to discontinue infusion; Medication stopped, blood pressure jb4 maintaining normo tensive. 03:37 Drug: DOBUTamine (500 mg/250mL premix) 2.5 mcg/kg/min Route: IV; Rate: calculated rate; vc1 Site: left antecubital; 06:41 Follow up: Response: No adverse reaction; IV Status: Infusion continued upon admission jb4 07:15 Follow up: Response: No adverse reaction; dose is at 2 mcg/kg/min at this time em6 04:41 Not Given (Physician Discretion): Aspirin Chewable Tablet 324 mg PO once; 81 mg tablets jb4 x 4 Medication: 04:00 VIS not applicable for this client. vc1 Intake: 03:29 IV: 100ml; Total: 100ml. jb4 04:00 IV: 1000ml; Total: 1100ml. jb4 Outcome: 05:27 Decision to Hospitalize by Provider. ms3 20:18 Admitted to ICU accompanied by nurse, via stretcher, room 6, on monitor, with chart, lili Report called to Tequila STONER 20:19 Condition: improved kl 21:44 Patient left the ED. Signatures: Denisse Waters RN RN Ceasar Mcfadden RN RN jb4 Robert Clements DO DO ms3 Christin Garcia Tiffany 5 Ana Maria Martínez RN RN vc1 Saige Zhu, RN RN em6 Corrections: (The following items were deleted from the chart) 06:42 06:35 Reassessment: Pt is resting in bed with no s/s of pain or distress noted, jb4 respirations are even and unlabored. Levophed stopped. jb4
--- NOTE | 2022-08-22 05:38 | P.HP ---
Certification for Inpatient Patient admitted to: Inpatient With expected LOS: >2 Midnights Practitioner: I am a practitioner with admitting privileges, knowledge of patient current condition, hospital course, and medical plan of care. Services: Services provided to patient in accordance with Admission requirements found in Title 42 Section 412.3 of the Code of Federal Regulations Patient History Date of Service: 08/22/22 Reason for admission: Cardiogenic Shock History of Present Illness: Patient is an 82 year old male with history of systolic CHF, type 2 diabetes, and chronic back pain who presented to the ED via EMS with complaints of back pain. Vital signs were stable with EMS. Upon arrival to ED, he was hooked up to the monitors and noted to be in vtach with rate of 200. He was sedated with fentanyl and versed and synchronized cardioverted with 150 joules. He converted to NSR but was profoundly hypotensive. Central line was inserted and he started on levophed and dobutamine as bedside echo showed very minimal heart contractility. BP responded well. Labs returned with trop 320, CO2 9, lactate 8.3, BNP 33961. Family was contacted who stated that patient is a DNR- no CPR or intubation. Patient will be admitted for further management. Allergies No Known Allergies Allergy (Verified 03/10/20 01:08) Home medications list reviewed: Yes Home Medications: Aspirin Chewable [Aspirin Chewable*] 81 mg PO DAILY 06/01/22 Atorvastatin Calcium [Lipitor] 40 mg PO BEDTIME 06/01/22 Clopidogrel Bisulfate [Plavix*] 75 mg PO DAILY 06/01/22 Docusate Sodium 100 mg PO BID 06/01/22 Donepezil [Aricept*] 5 mg PO BEDTIME 06/01/22 Empagliflozin [Jardiance] 10 mg PO DAILY 06/01/22 Furosemide [Lasix*] 40 mg PO BID 06/01/22 Gabapentin [Neurontin*] 100 mg PO TID 06/01/22 Lidocaine [Lidocaine Pain Relief] 1 patch TD DAILY 06/01/22 Metoprolol Succinate [Toprol Xl*] 25 mg PO DAILY 06/01/22 Hydrocodone 5/APAP 325 [[place] 5/325] 1 tab PO Q6H PRN #12 tab 06/02/22 Losartan Potassium 25 mg PO DAILY 06/02/22 Quetiapine [Seroquel*] 50 mg PO BID #60 tab 06/02/22 - Past Medical/Surgical History Diabetic: Yes -: Chronic systolic congestive heart failure -: HTN -: DM IDDM -: dementia -: Solitary kidney -: CKD 3 -: CAD -: hyperlipidemia -: stents Psychosocial/ Personal History: Patient is , lives at home alone - Family History Father -: Heart disease Notes: NH - Social History Smoking Status: Never smoker Alcohol use: No CD- Drugs: No Caffeine use: No Place of Residence: Home Review of Systems Musculoskeletal: Back Pain Physical Examination - Physical Exam General: In no apparent distress, Oriented x3 HEENT: Atraumatic, PERRLA, EOMI, Sclerae nonicteric Neck: Supple, 2+ carotid pulse no bruit, No LAD, Without JVD or thyroid abnormality Respiratory: Clear to auscultation bilaterally, Normal air movement Cardiovascular: Irregular heart rate/rhythm Gastrointestinal: Normal bowel sounds, No tenderness Musculoskeletal: No tenderness Integumentary: No rashes Neurological: Normal speech, Normal strength at 5/5 x4 extr, Normal tone, Normal affect - Studies Laboratory Data (last 24 hrs) 08/22/22 04:25: PT 14.1 H, INR 1.28, APTT 33.6 08/22/22 04:25: WBC 7.20, Hgb 9.6 L, Hct 29.5 L, Plt Count 239 08/22/22 04:25: Sodium 139, Potassium 4.5, BUN 18, Creatinine 1.19, Glucose 267 H, Magnesium 1.7 L Assessment and Plan - Problems (Diagnosis) (1) Cardiogenic shock Current Visit: Yes Status: Acute (2) Hypotension Current Visit: Yes Status: Acute Qualifiers: Hypotension type: other hypotension type Qualified Code(s): I95.89 - Other hypotension (3) CHF (congestive heart failure) Current Visit: Yes Status: Chronic Qualifiers: Heart failure type: systolic Heart failure chronicity: acute on chronic Qualified Code(s): I50.23 - Acute on chronic systolic (congestive) heart failure (4) Chronic back pain Current Visit: Yes Status: Chronic Qualifiers: Back pain location: low back pain Back pain laterality: bilateral Sciatica presence: with sciatica Sciatica laterality: bilateral sciatica Q ualified Code(s): M54.42 - Lumbago with sciatica, left side; M54.41 - Lumbago with sciatica, right side; G89.29 - Other chronic pain (5) Chronic kidney disease, stage 3 Current Visit: Yes Status: Chronic Qualifiers: Chronic kidney disease stage 3 subtype: stage 3a (GFR 45-59) Qualified Code(s): N18.31 - Chronic kidney disease, stage 3a (6) Coronary artery disease Current Visit: Yes Status: Chronic Qualifiers: Coronary Disease-Associated Artery/Lesion type: [place] artery [place] vs. transplanted heart: [place] heart Associated angina: without angina Qualified Code(s): I25.10 - Atherosclerotic heart disease of [place] coronary artery without angina pectoris (7) Diabetes mellitus type 2, insulin dependent Current Visit: Yes Status: Chronic (8) Anemia Current Visit: Yes Status: Acute Qualifiers: Anemia type: unspecified type Qualified Code(s): D64.9 - Anemia, unspecified - Plan -Patient will be admitted to ICU -Continue vasopressor therapy to support BP -Cardiology consult, echo -CT aorta pending -Therapeutic lovenox -NPO -Replete electrolytes as needed -Patient's daughter is medical POA and wishes for patient to be DNR. However, when I spoke with patient, he states he would like to be resusitated. He is alert and oriented x 3 but does have dementia. Discharge Plan: Other Plan to discharge in: Greater than 2 days - Advance Directives Does patient have a Living Will: No Does patient have a Durable POA for Healthcare: No - Code Status/Comfort Care Code Status Assessed: Yes (DNR) Critical Care: No Time Spent Managing Pts Care (In Minutes): 50
--- NOTE | 2022-08-22 06:38 | RAD REPORT ---
EXAM DESCRIPTION: CT - Angio Aorta For Dissection - 08/22/2022 5:50 am CLINICAL HISTORY: Back pain, Hypotension COMPARISON: Portable chest same date, CT angio dissection study 12/31/2021 TECHNIQUE: Dynamically enhanced 3 mm thick images of the chest, abdomen, and upper pelvis were obtai radha during administration of approximately 150mL Isovue 370 IV contrast. Sagittal and coronal reconst ruction images were generated using MIP and reviewed. Exam utilizes a protocol to evaluate entire cou rse of the aorta. All CT scans are performed using dose optimization technique as appropriate and may include automated exposure control or mA/KV adjustment according to patient size. FINDINGS: No aortic dissection. Atherosclerotic wall calcifications are present with no displaced ca lcification. There is minimal ectasia of the infrarenal aorta widening to 2.5 cm AP x 2.4 cm TR this is stable from December. Pulmonary arteries are normal as well. Cardiomegaly is present without pericardial effusion. Left quinn tricular dilatation is evident. Left atrium is prominent. Small a moderate bilateral pleural effusions are present. Atelectasis present in the posterior aspect s of each lower lobe. Overall interstitial thickening is evident accentuated by motion. No pneumothor ax or pleural based mass. No abnormal mediastinal or hilar mass or lymphadenopathy seen. No chest wall mass or abnormal axillar y lymphadenopathy. Celiac, SMA and left renal arteries show no suspicious findings. Solid abdominal viscera and bowel sh ow no acute or emergent findings. Suspected small hemangioma near the gallbladder fossa has not cao e from December imaging. Right nephrectomy surgical changes are noted. Prominent sigmoid diverticulos is without diverticulitis. Colon is mostly decompressed. An active bowel process is not identifiable. No biliary tree dilatation. Morel of the gallbladder appear thickened and edematous, accentuated by m otion. Correlation is needed to determine if the patient pain pattern might be referable to acute gal lbladder process. No mass or abnormal lymphadenopathy. No free air or pneumatosis. Trace amount of f ree fluid is present in the dependent portion the pelvis without other abnormality to explain the pre sence of fluid. No urinary bladder abnormality. Penile prosthesis and fluid reservoir noted. Prominent disc and bone degenerative changes are present. Left ilium bone defect is believed be part of lumbar postsurgical change. IMPRESSION: Gallbladder morel appear thickened and edematous, accentuated by motion. Biliary tree is not dilated. Acute cholecystitis would be possible if there are matching clinical findings. No acute aortic process. No pulmonary arterial tree abnormality. Mild to moderate bilateral pleural effusions. There is cardiomegaly and interstitial thickening. Fail ure or volume overload are suspected.
--- NOTE | 2022-08-22 06:40 | RAD REPORT ---
EXAM DESCRIPTION: RAD - Chest Single View - 08/22/2022 5:33 am CLINICAL HISTORY: CHEST PAIN COMPARISON: Portable 02/25/2022 TECHNIQUE: AP portable chest image was obtained 08/22/2022 5:33 am . FINDINGS: Left jugular line is in place with the tip in the mid SVC. Diffusely prominent interstitia l pattern is seen more pronounced in the perihilar regions. No focal consolidation. Cardiomegaly is p resent with central vascular engorgement. No large pleural effusions seen. Small pleural effusions can be masked on portable imaging. No pneum othorax. No acute bony abnormality seen. No acute aortic findings suspected. IMPRESSION: Mild CHF/volume overload pattern.
[2022-08-22] MEDS ORDERED: DOBUTAMINE 250 MG/250 ML BAG IV SCH (07:41)
[2022-08-22] MEDS ORDERED: NOREPINEPHRINE BITARTRATE/D5W 4 MG/250 ML BAG IV SCH (07:41)
[2022-08-22] MEDS ORDERED: MAGNESIUM SULFATE 1 gm IVPB 1 GM/100 ML BAG IV ONE ×2 (07:41→08:10)
[2022-08-22] MEDS ORDERED: ONDANSETRON 4 MG/2 ML VIAL IV PRN (07:41)
[2022-08-22] MEDS: INSULIN -REGULAR HUMAN 50 UNIT/0.5 ML ML SQ SCH ×4 (07:41→23:56)
[2022-08-22] MEDS ORDERED: INSULIN -REGULAR HUMAN 50 UNIT/0.5 ML ML ONE ×2 (08:10→12:13)
[2022-08-22] MEDS: ENOXAPARIN 80 MG/0.8 ML SQ SCH ×2 (09:00→21:50)
[2022-08-22] MEDS ORDERED: FENTANYL CITR 100 MCG/2 ML ONE ×2 (09:26→17:32)
[2022-08-22] MEDS ORDERED: ENOXAPARIN 80 MG/0.8 ML SQ ONE (09:26)
[2022-08-22] MEDS: FENTANYL CITR 100 MCG/2 ML IV PRN ×3 (09:38→21:50)
[2022-08-22] MEDS ORDERED: dexAMETHasone 4 MG/ML VIAL IV ONE (10:21)
[2022-08-22 10:42] LABS: Absolute Lymphocytes (CBC) 0.5 K/uL (0.7-4.9); Hematocrit 28.8 % (39.6-49.0); Lymphocytes % 6.2 % (15.3-44.8); MPV 7.5 fL (7.6-11.3); RBC Red Blood Cell Count 2.66 M/uL (4.33-5.43)
[2022-08-22 10:57] LABS: CKMB Creatine Kinase MB 7.8 ng/mL (1.0-3.6)
[2022-08-22 10:59] LABS: Albumin 2.6 g/dL (3.4-5.0); Bilirubin Total 0.7 mg/dL (0.2-1.0); Magnesium 1.9 mg/dL (1.8-2.4); Potassium 4.2 mmol/L (3.5-5.1); Protein, Total 5.9 g/dL (6.4-8.2)
[2022-08-22 11:00] LABS: Troponin High Sensitivity 1312.6 pg/mL (<58.9)
[2022-08-22 11:53] LABS: Anisocytosis 2+; Blood Morphology Comment NOTED (NOT SEEN); Hypochromasia 1+; Macrocytosis 1+; Platelet Estimate ADEQ; Polychromasia SLIGHT; White Blood Cell Scan OK (OK)
[2022-08-22] MEDS ORDERED: HYDROCODONE/APAP 5/325 MG TAB ONE (12:12)
[2022-08-22] MEDS ORDERED: dexAMETHasone 4 MG/ML VIAL ONE (12:12)
[2022-08-22] MEDS: HYDROCODONE/APAP 5/325 MG TAB PO PRN (12:34)
[2022-08-22] MEDS ORDERED: AMIODARONE HCL 150 MG in D5W 100 ML IV STA (23:24)
[2022-08-22] MEDS ORDERED: AMIODARONE IN DEXTROSE,ISO-OSM 360 MG/200 ML BAG IV ONE (23:26)
--- NOTE | 2022-08-22 23:34 | CON ---
Date of Consultation: 08/22/2022 Reason For Consultation: Elevated troponin. History Of Present Illness: This is an 82-year-old gentleman with a history of systolic heart failur e, diabetes, chronic back pain, and severe hip arthritis, presented to the emergency room complaining of back pain. Vital signs were stable in the EMS. Upon arrival to the emergency room, he was found to be in ventricular tachycardia, heart rate of 200, low blood pressure, required a cardioversion, a nd then the patient has started to become stable. He is DNR, so no CPR was initiated except the shoc k. Past Medical History: As outlined above in HPI. Medications: Refer to the reconciliation sheet for a detailed list. Allergies: NO KNOWN DRUG ALLERGIES. Family History: No premature coronary artery disease or cancer. Social History: Does not smoke or drink. Does not use any drugs. Review of Systems: All systems reviewed are negative, except as mentioned in HPI. Physical Examination: Vital Signs: Reviewed. Head and Neck: Pupils are equal, reactive to light. Intact eye movements. No JVD. No cervical lym phadenopathy. Neck is supple. Thyroid not enlarged. Lungs: Clear to auscultation bilaterally. No rhonchi, rales, or crackles. No accessory muscle use. Heart: Irregular. No extra sounds. Abdomen: Soft, nontender. Bowel sounds positive. No organomegaly. No masses or hernia. No rigidi ty or rebound. Extremities: No edema, clubbing, or cyanosis. Intact pulses. SKIN: No rashes. Neurologic: Alert, awake, and oriented x3. No focal deficits appreciated. Investigations: His troponin is 1312. Hemoglobin is 9.5 with a creatinine of 1.08. Assessment And Recommendation: 1.Mrs-DM-metpobikt myocardial infarction. We will start the patient on IV heparin drip, aspirin 81 mg daily, and we will plan for coronary angiogram on Thursday. For that his DNR status needs to change , if the patient insists on not being resuscitated, then we will elect to do medical therapy only. O btain an echocardiogram and further recommend the heart failure therapy accordingly. 2.Severe congestive heart failure, stable at the present time. We will monitor carefully, and after obtaining the echocardiogram, further recommendations to follow. 3.Status post cardiac arrest due to ventricular tachycardia, status post cardioversion, now he is in sinus rhythm. Based on his ejection fraction he might require an implantable cardioverter defibrill ator implantation. At the present time, we will monitor for any rhythm abnormalities and decide on t he treatment accordingly. /AMINAH Voice ID: [id number] Report ID: [id number]
[2022-08-22] MEDS ORDERED: AMIODARONE HCL 450 MG in D5W 241 ML IV SCH (23:45)
[2022-08-23] MEDS ORDERED: FENTANYL CITR 100 MCG/2 ML IV ONE (00:03)
[2022-08-23] MEDS ORDERED: MIDAZOLAM HCL 2 MG/2 ML INJ IV ONE (00:03)
[2022-08-23] MEDS ORDERED: MAGNESIUM SULFATE 1 gm IVPB 1 GM/100 ML BAG IV ONE ×2 (00:13→00:15)
[2022-08-23 00:17] LABS: Magnesium 1.9 mg/dL (1.8-2.4); Potassium 4.2 mmol/L (3.5-5.1)
--- NOTE | 2022-08-23 00:21 | P.PN ---
Date of Service: 08/23/22 Received a call at 2312 that patient was sustaining vtach in the 190s-200s. BP was 91/67. Patient alert and answering questions appropriately. Contacted attending and cardiology who recommended loading dose of amiodarone then contiuous drip. Patient did not convert after loading dose or 20 min of drip. He was becoming more hypotensive. At 0010, we sedated him with 1 mg versed and 75 mcg fentanyl. We then synchronized cardioverted him with 150 joules. He converted back to NSR shortly after. Patient sleeping now. BP stable.
[2022-08-23] MEDS: HYDROCODONE/APAP 5/325 MG TAB PO PRN ×4 (04:41→21:28)
[2022-08-23 05:18] LABS: Absolute Lymphocytes (CBC) 0.8 K/uL (0.7-4.9); Hematocrit 25.9 % (39.6-49.0); Lymphocytes % 15.3 % (15.3-44.8); MCV 106.2 fL (80-100); MPV 7.6 fL (7.6-11.3); RBC Red Blood Cell Count 2.44 M/uL (4.33-5.43)
[2022-08-23 05:38] LABS: Albumin 2.6 g/dL (3.4-5.0); Bilirubin Total 0.6 mg/dL (0.2-1.0); Phosphorus 3.3 mg/dL (2.5-4.9); Potassium 3.7 mmol/L (3.5-5.1); Protein, Total 5.6 g/dL (6.4-8.2)
[2022-08-23] MEDS ORDERED: AMIODARONE IN DEXTROSE,ISO-OSM 360 MG/200 ML BAG IV ONE (05:40)
[2022-08-23] MEDS: FENTANYL CITR 100 MCG/2 ML IV PRN ×3 (05:49→19:20)
[2022-08-23] MEDS: INSULIN -REGULAR HUMAN 50 UNIT/0.5 ML ML SQ SCH ×4 (06:00→20:23)
[2022-08-23] MEDS ORDERED: KCL 20 MEQ/100 mL IVPB 20 MEQ/100 ML BAG IV SCH (06:30)
[2022-08-23] MEDS: ENOXAPARIN 80 MG/0.8 ML SQ SCH (10:10)
--- NOTE | 2022-08-23 12:28 | PN ---
Date of Progress Note: 08/23/2022 Subjective: Seen by bedside. Doing well at the present time. He is asymptomatic; however, he had a n episode of V-tach at rate of close to 200 and the patient was still awake with it. Amiodarone drip was started, did not convert him, and then required 2 shocks and now he is in sinus rhythm, on amiod arone drip. Review of Systems: There is no active chest pain, shortness of breath, orthopnea, cough, nausea, vomiting, diarrhea. Al l other systems reviewed and they were negative. Physical Examination: Vital Signs: Temperature is 98.4, pulse is 86, breathing at 15, blood pressure 103/68, saturating 96 %. General: Pleasant elderly male, in no apparent distress. Head and Neck: Pupils are equal, reactive to light. Intact eye movements. No JVD. No cervical lym phadenopathy. Neck is supple. Thyroid is not enlarged. Lungs: Clear to auscultation bilaterally. No rhonchi, wheezing, or crackles. No accessory muscle u se. Heart: Regular rate and rhythm. No extra sounds. Abdomen: Soft, nontender. Bowel sounds positive. No organomegaly. No masses or hernia. No rigidi ty or rebound. Extremities: No clubbing or cyanosis. Intact pulses. Skin: No rash. Neurologic: Alert, awake. No acute focal deficits appreciated. Investigations: BUN 18, creatinine 0.94, and his hemoglobin 8.4. Assessment And Recommendations: 1.Non-ST elevation myocardial infarction. Recommend heparin drip, baby aspirin daily, and plan for coronary angiogram on Thursday. 2.Ventricular tachycardia. Continue loading with IV amiodarone for the full 24 hours and then switc h to oral 200 mg twice a day once the IV load is complete. 3.Severe congestive heart failure, appears to be euvolemic. We will continue current medications. SR/MODL Voice ID: [id number] Report ID: [id number]
[2022-08-23] MEDS ORDERED: HEPARIN/D5W 25,000 UNIT/500 ML BAG IV PRN (13:00)
[2022-08-23] MEDS ORDERED: D5W 250 ML IV ONE (16:38)
[2022-08-23] MEDS ORDERED: AMIODARONE HCL 150 MG/3 ML INJ IV ONE (16:38)
[2022-08-23] MEDS ORDERED: D50W 25 GM/50 ML SYRINGE IV PRN (19:21)
[2022-08-23] MEDS ORDERED: D10W 125 ML IV PRN (19:45)
[2022-08-24] MEDS: FENTANYL CITR 100 MCG/2 ML IV PRN ×4 (00:22→21:58)
[2022-08-24 05:07] LABS: Absolute Lymphocytes (CBC) 0.9 K/uL (0.7-4.9); Hematocrit 28.4 % (39.6-49.0); Lymphocytes % 8.8 % (15.3-44.8); MCV 105.7 fL (80-100); MPV 7.6 fL (7.6-11.3); RBC Red Blood Cell Count 2.69 M/uL (4.33-5.43)
[2022-08-24 05:29] LABS: Albumin 2.7 g/dL (3.4-5.0); Bilirubin Total 0.7 mg/dL (0.2-1.0); Phosphorus 3.1 mg/dL (2.5-4.9); Potassium 4.3 mmol/L (3.5-5.1); Protein, Total 6.2 g/dL (6.4-8.2)
[2022-08-24] MEDS: HYDROCODONE/APAP 5/325 MG TAB PO PRN ×2 (05:43→12:47)
[2022-08-24] MEDS ORDERED: AMIODARONE IN DEXTROSE,ISO-OSM 360 MG/200 ML BAG IV ONE (05:59)
[2022-08-24] MEDS: INSULIN -REGULAR HUMAN 50 UNIT/0.5 ML ML SQ SCH ×4 (07:30→20:41)
--- NOTE | 2022-08-24 09:07 | P.PN ---
Date of Service: 08/23/22 Subjective Patient is awake and alert but confused. Patient understands that he may need further cardiac intervention. Unable to get a hold of family today. Physical Examination - Physical Exam General: In no apparent distress, Oriented x3 Respiratory: Clear to auscultation bilaterally, Normal air movement Cardiovascular: Irregular heart rate/rhythm Gastrointestinal: Normal bowel sounds, No tenderness Musculoskeletal: No tenderness Neurological: No focal deficits Assessment and Plan - Problems (Diagnosis) (1) Cardiogenic shock Current Visit: Yes Status: Acute (2) Hypotension Current Visit: Yes Status: Acute Hypotension type: other hypotension type Qualified Code(s): I95.89 - Other hypotension (3) CHF (congestive heart failure) Current Visit: Yes Status: Chronic Heart failure type: systolic Heart failure chronicity: acute on chronic Qualified Code(s): I50.23 - Acute on chronic systolic (congestive) heart failure (4) Chronic back pain Current Visit: Yes Status: Chronic Back pain location: low back pain Back pain laterality: bilateral Sciatica presence: with sciatica Sciatica laterality: bilateral sciatica Qualified Code(s): M54.42 - Lumbago with sciatica, left side; M54.41 - Lumbago with sciatica, right side; G89.29 - Other chronic pain (5) Chronic kidney disease, stage 3 Current Visit: Yes Status: Chronic Chronic kidney disease stage 3 subtype: stage 3a (GFR 45-59) Qualified Code(s): N18.31 - Chronic kidney disease, stage 3a (6) Coronary artery disease Current Visit: Yes Status: Chronic Coronary Disease-Associated Artery/Lesion type: [place] artery [place] vs. transplanted heart: [place] heart Associated angina: without angina Qualified Code(s): I25.10 - Atherosclerotic heart disease of [place] coronary artery without angina pectoris (7) Diabetes mellitus type 2, insulin dependent Current Visit: Yes Status: Chronic (8) Anemia Current Visit: Yes Status: Acute Anemia type: unspecified type Qualified Code(s): D64.9 - Anemia, unspecified - Plan Continue with plan of care as mentioned below: -IV amiodarone -Cardiology consult; echocardiogram pending. -IV heparin -Further coronary intervention per cardiology -Replete electrolytes as needed -Patient's daughter is medical POA and wishes for patient to be DNR. However, when I spoke with patient, he states he would like to be resuscitated. He is alert and oriented x 3 but does have dementia. We will discuss the case further with family and patient
--- NOTE | 2022-08-24 09:26 | P.PN ---
Date of Service: 08/24/22 Subjective Pt doing well; patient is an 82-year-old gentleman who was admitted to the hospital in cardiogenic shock. Patient was started on vasopressor support. Patient had to be cardioverted the next evening as patient went into V. tach. Patient was started on amiodarone drip but did not come out of V. tach. After cardioversion patient has been doing much better. Currently on a heparin drip and plan for cardiac catheterization in the morning. Daughter is medical power of laboratory courier and they have talked about making patient a DO NOT RESUSCITATE. However, patient at this time wants everything done to work him up so we will proceed at this point. Physical Examination - Physical Exam General: In no apparent distress, Oriented x3; pleasantly confused Respiratory: Clear to auscultation bilaterally, Normal air movement Cardiovascular: Regular rate and rhythm Gastrointestinal: Normal bowel sounds, No tenderness Musculoskeletal: No tenderness Neurological: No focal deficits; generalized weakness Assessment and Plan - Problems (Diagnosis) (1) Cardiogenic shock; non-STEMI Current Visit: Yes Status: Acute (2) Ventricular tachycardia status post cardioversion Current Visit: Yes Status: Acute Hypotension type: other hypotension type Qualified Code(s): I95.89 - Other hypotension (3) CHF (congestive heart failure) Current Visit: Yes Status: Chronic Heart failure type: systolic Heart failure chronicity: acute on chronic Qualified Code(s): I50.23 - Acute on chronic systolic (congestive) heart failure (4) Chronic back pain Current Visit: Yes Status: Chronic Back pain location: low back pain Back pain laterality: bilateral Sciatica presence: with sciatica Sciatica laterality: bilateral sciatica Qualified Code(s): M54.42 - Lumbago with sciatica, left side; M54.41 - Lumbago with sciatica, right side; G89.29 - Other chronic pain (5) Chronic kidney disease, stage 3 Current Visit: Yes Status: Chronic Chronic kidney disease stage 3 subtype: stage 3a (GFR 45-59) Qualified Code(s): N18.31 - Chronic kidney disease, stage 3a (6) History of coronary artery disease Current Visit: Yes Status: Chronic Coronary Disease-Associated Artery/Lesion type: [place] artery [place] vs. transplanted heart: [place] heart Associated angina: without angina Qualified Code(s): I25.10 - Atherosclerotic heart disease of [place] coronary artery without angina pectoris (7) Diabetes mellitus type 2, insulin dependent Current Visit: Yes Status: Chronic (8) Anemia Current Visit: Yes Status: Acute Anemia type: unspecified type Qualified Code(s): D64.9 - Anemia, unspecified - Plan Continue with plan of care as mentioned below: -Change to oral amiodarone -Continue heparin drip -Appreciate cardiology input -Echo pending -Cardiac catheterization in a.m. -Strict blood pressure and blood sugar control -Replete electrolytes as needed -Patient's daughter is medical POA and wishes for patient to be DNR. However, when I spoke with patient, he states he would like to be resuscitated. He is alert and oriented x 3 but does have dementia. We will discuss the case further with family and patient; left call to the daughter to contact me
[2022-08-24] MEDS: AMIODARONE HCL 200 MG TAB PO SCH ×2 (09:39→20:40)
[2022-08-24] MEDS: ENSURE HIGH PROTEIN 237 ML CAN PO SCH ×2 (12:15→16:49)
--- NOTE | 2022-08-24 20:10 | PN ---
Date of Progress Note: 08/24/2022 Subjective: Seen by bedside and he is having no chest pain. No nausea, vomiting, or diarrhea. Review of Systems: There is no chest pain, shortness of breath, orthopnea, or cough. He has significant left hip pain. Otherwise, no nausea, vomiting, diarrhea. All other systems reviewed are negative. Physical Examination: Vital Signs: Reviewed. Head and Neck: Pupils are equal, reactive to light. Intact eye movements. No JVD. No cervical lym phadenopathy. Neck: Supple. Thyroid is not enlarged. Lungs: Clear to auscultation bilaterally. No rhonchi, wheezing, or crackles. No accessory muscle u se. Heart: Irregular. No extra sounds. Abdomen: Soft, nontender. Bowel sounds positive. No organomegaly. No masses or hernia. No rigidi ty or rebound. Extremities: No clubbing or cyanosis. Intact pulses. Skin: No rashes. Neurologic: Alert, awake, oriented x3. No focal deficits appreciated. Investigations: Labs were reviewed. Assessment And Recommendations: 1.Non-ST elevation myocardial infarction. Keep n.p.o. past midnight. We will have coronary angiogr am tomorrow. 2.Atrial fibrillation, rate controlled. Continue amiodarone 200 mg by mouth twice a day. We will place him on anticoagulant post heart catheterization tomorrow. SR/MODL Voice ID: [id number] Report ID: [id number]
[2022-08-25] MEDS: HYDROCODONE/APAP 5/325 MG TAB PO PRN ×2 (05:31→21:34)
[2022-08-25 05:36] LABS: Absolute Lymphocytes (CBC) 1.8 K/uL (0.7-4.9); Lymphocytes % 17.3 % (15.3-44.8); MPV 7.6 fL (7.6-11.3); RBC Red Blood Cell Count 1.31 M/uL (4.33-5.43)
[2022-08-25 05:39] LABS: Hematocrit 13.7 % (39.6-49.0)
[2022-08-25 05:40] LABS: MCV 104.8 fL (80-100)
[2022-08-25] MEDS ORDERED: NA CHLORIDE 0.9% 250 ML IV SCH (06:00)
[2022-08-25 06:07] LABS: Albumin 2.6 g/dL (3.4-5.0); Bilirubin Total 1.2 mg/dL (0.2-1.0); Magnesium 2.1 mg/dL (1.8-2.4); Phosphorus 2.7 mg/dL (2.5-4.9); Potassium 4.3 mmol/L (3.5-5.1)
--- NOTE | 2022-08-25 07:14 | RAD REPORT ---
EXAM DESCRIPTION: RAD - Chest Single View - 08/25/2022 5:17 am CLINICAL HISTORY: pneumonia COMPARISON: CT chest August 22, portable chest August 22 TECHNIQUE: AP portable chest image was obtained 08/25/2022 5:17 am . FINDINGS: Left jugular central line remains in place, unchanged in position. Multiple vertically-oriented skin fold artifacts overlie the left chest. Left pleural effusion has no t changed. Right pleural effusion is probably still present. Smaller pleural effusions collecting in the posterior gutter can be occult on a portable examination. Central vasculature remains prominent. Cardiomegaly is still present. Retrocardiac left base assessme nt limited. No pneumothorax seen. IMPRESSION: Mild CHF/volume overload pattern continues. No focal right lung field infiltrate. Retrocardiac left base assessment is limited and could obscure an infiltrate in the setting of atelectasis.
[2022-08-25] MEDS: INSULIN -REGULAR HUMAN 50 UNIT/0.5 ML ML SQ SCH ×4 (07:30→21:38)
[2022-08-25] MEDS: ENSURE HIGH PROTEIN 237 ML CAN PO SCH ×3 (07:30→16:46)
--- NOTE | 2022-08-25 08:13 | ECHO ---
HEIGHT: 5 ft 1 in WEIGHT: 169 lb 0 oz DATE OF STUDY: 08/22/[address]: Alessia Fregoso 2-DIMENSIONAL: YES M.MODE: YES DOPPLER: YES COLOR FLOW: YES TDS: NO PORTABLE: YES DEFINITY: NO BUBBLE STUDY: NO DIAGNOSIS: CARDIOGENIC SHOCK CARDIAC HISTORY: CATHERIZATION: YES SURGERY: NO PROSTHETIC VALVE: NO PACEMAKER: NO MEASUREMENTS (cm) DIASTOLIC (NORMALS) SYSTOLIC (NORMALS) IVSd 1.2 (0.6-1.2) LA Diam 2.8 (1.9-4.0) LVEF 34% LVIDd 5.0 (3.5-5.7) LVIDs 4.2 (2.0-3.5) %FS 16% LVPWd 1.2 (0.6-1.2) Ao Diam 2.4 (2.0-3.7) 2 DIMENSIONAL ASSESSMENT: RIGHT ATRIUM: NORMAL LEFT ATRIUM: NORMAL RIGHT VENTRICLE: NORMAL LEFT VENTRICLE: DEPRESSED EJECTION FRACTION TRICUSPID VALVE: NORMAL MITRAL VALVE: MODERATE MITRAL REGURGITATION PULMONIC VALVE: NORMAL AORTIC VALVE: NORMAL PERICARDIAL EFFUSION: NONE AORTIC ROOT: NORMAL LEFT VENTRICULAR WALL MOTION: MODERATE GLOBAL HYPOKINESIS. DOPPLER/COLOR FLOW: SEE BELOW. COMMENTS: MODERATELY DEPRESSED LEFT VENTRICULAR EJECTION FRACTION 30-35%. MODERATE GLOBAL HYPOKINESIS. MODERATE MITRAL REGURGITATION WITH MITRAL ANNULAR CALCIFICATION. MILD AORTIC INSUFFICIENCY/ MILD TRICUSPID REGURGITATION. TECHNOLOGIST: JACINTO AGUILAR
[2022-08-25] MEDS: AMIODARONE HCL 200 MG TAB PO SCH (08:48)
[2022-08-25] MEDS ORDERED: HEPA 1000U/500MLS 0 UNIT/0 ML BAG IV ONE ×2 (09:14→11:35)
[2022-08-25] MEDS ORDERED: HEPARIN/D5W 25,000 UNIT/500 ML BAG IV PRN (09:21)
--- NOTE | 2022-08-25 09:31 | P.PN ---
Subjective Date of Service: 08/25/22 Chief Complaint: Cardiogenic Shock Subjective: No new changes No acute events overnight. This morning, his hemoglobin dropped to 5.0, but there is no obvious source of bleeding. Repeat hemoglobin was 9.1, which suggests first reading was likely a laboratory error. Review of Systems 10-point ROS is otherwise unremarkable General: Weakness (generalized) Physical Examination - Vital Signs Temperature: 97.8 F Blood Pressure: 105/69 Pulse: 85 Respirations: 16 Pulse Ox (%): 98 - Physical Exam General: Alert, In no apparent distress, Oriented x3 HEENT: Atraumatic, PERRLA, Mucous membr. moist/pink, EOMI, Sclerae nonicteric Neck: Supple, JVD not distended Respiratory: Clear to auscultation bilaterally, Normal air movement Cardiovascular: No edema, Regular rate/rhythm, Normal S1 S2, No gallops, No rubs, No murmurs Gastrointestinal: Normal bowel sounds, Soft and benign, Non-distended Musculoskeletal: No clubbing Integumentary: No rashes Neurological: Normal speech, Cranial nerves 3-12 intact, Normal affect Assessment And Plan - Plan # Cardiogenic Shock secondary to Acute on Chronic Systolic Congestive Heart Failure (LVEF 34 %) Exacerbation # Type II Non-ST Segment Elevation Myocardial Infarction secondary to above # Sustained Ventricular Tachycardia s/p DCCV (08/23) - resolved # Coronary Artery Disease # Elevated LFTs suspect Congestive Hepatopathy # Moderate Mitral Regurgitation - Consult Cardiology and Dr. Baldwin following - recommendations appreciated - Plan for [facility] today - Diuresis per Cardiology - Continue amiodarone - Transthoracic echocardiogram = "moderately depressed left ventricular ejection fraction 30-35%. moderate global hypokinesis. moderate mitral regurgitation with mitral annular calcification. mild aortic insufficiency/ mild tricuspid regurgitation." - Daily weights - Strict I/O - Cardiac diet, 2 L fluid restriction, 2 g Na restriction # Chronic Kidney Disease Stage III # S/P Right Nephrectomy # Anemia of Chronic Kidney Disease - Creatinine = 1.11 (near baseline) - Diuretics as mentioned above - Monitor creatinine and urine output - If worsening, obtain renal ultrasound - Renally dose medications # Type II Diabetes Mellitus - Glucose well-controlled - Correction sale insulin Hubert El M.D. Discharge Plan: [facility] Care Plan to discharge in: 48 Hours
[2022-08-25] MEDS ORDERED: HEPARIN 5000 UNIT/ML 1 ML VIAL ONE (09:48)
[2022-08-25] MEDS ORDERED: NITROGLYCERIN 100 MCG/ML SYR (for cath lab use only) IV ONE ×2 (09:49→12:04)
[2022-08-25] MEDS ORDERED: ATROPINE SULF 1 MG/10 ML SYR IV ONE (09:49)
[2022-08-25] MEDS ORDERED: TICAGRELOR 90 MG TABLET PO ONE (09:49)
[2022-08-25] MEDS ORDERED: VERAPAMIL HCL 10 MG/4 ML VIAL IV ONE (09:49)
[2022-08-25] MEDS ORDERED: HEPARIN 10,000 UNIT/10 ML VIAL IV ONE (09:49)
[2022-08-25] MEDS ORDERED: ASPIRIN 325 MG TAB ONE (09:49)
[2022-08-25] MEDS ORDERED: CLOPIDOGREL 75 MG TABLET ONE (09:49)
[2022-08-25] MEDS ORDERED: NITROGLYCERIN/D5W 0 MG/0 ML BTL IV ONE ×2 (09:50→12:04)
[2022-08-25] MEDS ORDERED: FENTANYL CITR 100 MCG/2 ML ONE (09:50)
[2022-08-25] MEDS ORDERED: MIDAZOLAM HCL 2 MG/2 ML INJ ONE (09:51)
[2022-08-25] MEDS ORDERED: NA CHLORIDE 0.9% 0 ML ONE (11:36)
--- NOTE | 2022-08-25 15:21 | RAD REPORT ---
EXAM DESCRIPTION: RAD - Hip Bilateral With Pelvis - 08/25/2022 3:10 pm CLINICAL HISTORY: Hip pain FINDINGS: No fracture or dislocation seen. Mild osteoarthritis involves the hips. Bones appear osteoporotic.
--- NOTE | 2022-08-25 20:01 | PN ---
Date of Progress Note: 08/25/2022 Subjective: Seen by bedside. Attempted to do a coronary angiogram on him today; however, the patien t would not get comfortable lying down and screaming from pain, both hips. We had to abort the proce dure and sent him back to his room. Review of Systems: There is no chest pain, shortness of breath, orthopnea, or cough. No nausea, vomiting, diarrhea. Al l other systems reviewed are negative. Physical Examination: Vital Signs: Reviewed. Head and Neck: Pupils are equal, reactive to light. Intact eye movements. No JVD. No cervical lym phadenopathy. Neck: Supple. Thyroid is not enlarged. Lungs: Clear to auscultation bilaterally. No rhonchi, wheezing, or crackles. No accessory muscle u se. Heart: Irregular. No extra sounds. Abdomen: Soft, nontender. Bowel sounds positive. No organomegaly. No masses or hernia. No rigidi ty or rebound. Extremities: No clubbing, cyanosis. Intact pulses. Skin: No rash. Neurologic: Alert, awake, oriented x3. No acute deficits appreciated. Investigations: Labs were reviewed. Assessment And Recommendations: 1.Non-ST elevation myocardial infarction with a very low ejection fraction. The patient needs coron alicja angiogram. However, this is becoming a challenge due to severe hip pain. I discussed the case w ith Dr. El and recommend evaluation of his both hips, rule out a fracture that was not identified as the patient is in severe pain. Once this issues are taken care of, and then, we will plan for cor onary angiogram on him. 2.Ventricular tachycardia. Now, he has been stable after being on amiodarone. His liver function t est was slightly abnormal, so decreases amiodarone to 200 mg once a day. 3.Elevated liver enzymes, likely due to combination of heart failure. Could be also as a result of the amiodarone. We will decrease the dose and monitor the liver function tests carefully. SR/MODL Voice ID: [id number] Report ID: [id number]
[2022-08-26 05:51] LABS: MPV 8.2 fL (7.6-11.3)
[2022-08-26 06:05] LABS: Albumin 2.4 g/dL (3.4-5.0); Bilirubin Total 1.4 mg/dL (0.2-1.0); Potassium 4.3 mmol/L (3.5-5.1); Protein, Total 5.7 g/dL (6.4-8.2)
[2022-08-26 07:15] LABS: Anisocytosis 2+; Blood Morphology Comment NOTED (NOT SEEN); Macrocytosis 1+; Platelet Estimate ADEQ; White Blood Cell Scan OK (OK)
[2022-08-26] MEDS: ENSURE HIGH PROTEIN 237 ML CAN PO SCH ×3 (07:30→16:01)
[2022-08-26] MEDS: INSULIN -REGULAR HUMAN 50 UNIT/0.5 ML ML SQ SCH ×4 (07:30→20:55)
[2022-08-26 08:06] LABS: Absolute Lymphocytes (CBC) 1.2 K/uL (0.7-4.9); Hematocrit 25.8 % (39.6-49.0); Lymphocytes % 15.8 % (15.3-44.8); MPV 8.4 fL (7.6-11.3); RBC Red Blood Cell Count 2.43 M/uL (4.33-5.43)
--- NOTE | 2022-08-26 08:14 | RAD REPORT ---
EXAM DESCRIPTION: US - Liver Only - 08/26/2022 6:36 am CLINICAL HISTORY: Elevated LFTs COMPARISON: Urinary Bladder dated 02/27/2022; Angio Aorta For Dissection dated 08/22/2022 FINDINGS: The liver demonstrates mild increased echotexture. No focal liver lesion or intrahepatic biliary dilatation.No evidence of portal vein thrombosis. Cholelithiasis with sludge. No gallbladder wall thickening. No sonographic Gordon's sign was elicited . The common bile duct measures 7 millimeters which is within normal limits for a patient at this age . Trace perihepatic ascites. IMPRESSION: 1. Hepatic steatosis with trace ascites. 2. Cholelithiasis without sonographic evidence of acute cholecystitis.
[2022-08-26] MEDS: HYDROCODONE/APAP 5/325 MG TAB PO PRN (11:12)
[2022-08-26] MEDS: AMIODARONE HCL 200 MG TAB PO SCH (11:13)
--- NOTE | 2022-08-26 13:40 | EKG ---
Test Date: 2022-08-22 Test Time: 03:18:59 Apprentice Pattern Maker: MEASUREMENT RESULTS: Intervals: Rate: 200 RI: QRSD: 188 QT: 302 QTc: 551 [place]: P: RI: QRS: 263 T: 252 INTERPRETIVE STATEMENTS: Ventricular tachycardia Electronically Signed On 08-26-22 13:38:12 CDT by Jim Baldwin
--- NOTE | 2022-08-26 14:29 | P.PN ---
Subjective Date of Service: 08/26/22 Chief Complaint: Cardiogenic Shock No acute events overnight. He has been experiencing intermittent confusion. This morning, he is alert and oriented x [address] He does not endorse any concerns this morning. Review of Systems 10-point ROS is otherwise unremarkable General: Other (intermittent confusion) Physical Examination - Vital Signs Temperature: 97.2 F Blood Pressure: 102/61 Pulse: 85 Respirations: 16 Pulse Ox (%): 98 Assessment And Plan - Plan - Physical Exam General: Alert, In no apparent distress, Oriented x2 to person and place HEENT: Atraumatic, PERRLA, Mucous membr. moist/pink, EOMI, Sclerae nonicteric Neck: Supple, JVD not distended Respiratory: Clear to auscultation bilaterally, Normal air movement Cardiovascular: No edema, Regular rate/rhythm, Normal S1 S2, No gallops, No rubs, No murmurs Gastrointestinal: Normal bowel sounds, Soft and benign, Non-distended Musculoskeletal: No clubbing Integumentary: No rashes Neurological: Normal speech, Cranial nerves 3-12 intact, Normal affect # Cardiogenic Shock secondary to Acute on Chronic Systolic Congestive Heart Failure (LVEF 34 %) Exacerbation # Type II Non-ST Segment Elevation Myocardial Infarction secondary to above # Sustained Ventricular Tachycardia s/p DCCV (08/23) - resolved # Coronary Artery Disease # Elevated LFTs suspect Congestive Hepatopathy vs Amiodarone Toxicity # Moderate Mitral Regurgitation - Consult Cardiology and Dr. Baldwin following - recommendations appreciated - Unable to complete [facility] yesterday due to significant pelvic pain - Hip x-rays without evidence of fracture - Per Dr. Baldwin, tentative plan for [facility] today - Diuresis per Cardiology - Continue amiodarone per Cardiology - Liver US = "1. Hepatic steatosis with trace ascites. 2. Cholelithiasis without sonographic evidence of acute cholecystitis." - Transthoracic echocardiogram = "moderately depressed left ventricular ejection fraction 30-35%. moderate global hypokinesis. moderate mitral regurgitation with mitral annular calcification. mild aortic insufficiency/ mild tricuspid regurgitation." - Daily weights - Strict I/O # Chronic Kidney Disease Stage III # S/P Right Nephrectomy # Anemia of Chronic Kidney Disease - Creatinine = 1.15 (near baseline) - Diuretics as mentioned above - Monitor creatinine and urine output - If worsening, obtain renal ultrasound - Renally dose medications # Type II Diabetes Mellitus - Glucose well-controlled - Correction sale insulin Hubert El M.D.
--- NOTE | 2022-08-26 16:45 | PN ---
Date of Progress Note: 08/26/2022 Subjective: Seen by bedside. Still screaming every time I walked into his room and he is screaming from pain to his hips as per his report. Denies having any chest pain or shortness of breath. Review of Systems: No chest pain, shortness of breath, orthopnea, cough. No nausea, vomiting, diarrhea. He has severe bilateral hip pain. Physical Examination: Vital Signs: Reviewed. Head and Neck: Pupils are equal, reactive to light. Intact eye movements. No JVD. No cervical lym phadenopathy. Neck is supple. Thyroid is not enlarged. Lungs: Clear to auscultation bilaterally. No rhonchi, wheezing, or crackles. No accessory muscle u se. Heart: Regular rate and rhythm. No extra sounds. Abdomen: Soft, nontender. Bowel sounds positive. No organomegaly. No masses or hernia. No rigidi ty or rebound. Extremities: No clubbing or cyanosis. Intact pulses. Skin: No rash. Neurologic: Alert, awake, oriented x3. No acute focal deficits appreciated. Investigations: BUN 33, creatinine 1.1. Hemoglobin is 9. Assessment And Recommendations: 1.Non-ST elevation myocardial infarction. The patient has low ejection fraction. Tried to take him to the cath lab radiological technologist; however, the patient is not able to lie flat from severe pain. At this point, I re commend a Lexiscan nuclear stress test. If I see significant reversible ischemia, then we will plan probably to do the angiogram with the help of anesthesia. 2.Ventricular tachycardia. Again, ischemia workup is indicated. Obtain a Lexiscan nuclear stress t est and continue amiodarone daily. 3.Elevated liver enzymes, improving. SR/MODL Voice ID: [id number] Report ID: [id number]
[2022-08-27 05:42] LABS: MPV 8.5 fL (7.6-11.3)
[2022-08-27 05:58] LABS: Albumin 2.6 g/dL (3.4-5.0); Bilirubin Total 1.6 mg/dL (0.2-1.0); Phosphorus 3.4 mg/dL (2.5-4.9); Potassium 4.3 mmol/L (3.5-5.1); Protein, Total 5.6 g/dL (6.4-8.2)
[2022-08-27] MEDS: ENSURE HIGH PROTEIN 237 ML CAN PO SCH ×3 (07:30→16:10)
[2022-08-27] MEDS: INSULIN -REGULAR HUMAN 50 UNIT/0.5 ML ML SQ SCH ×4 (07:30→21:00)
[2022-08-27] MEDS: AMIODARONE HCL 200 MG TAB PO SCH (09:35)
[2022-08-27] MEDS: HYDROCODONE/APAP 5/325 MG TAB PO PRN ×2 (09:36→17:18)
[2022-08-27 11:17] LABS: Absolute Lymphocytes (CBC) 0.8 K/uL (0.7-4.9); Hematocrit 25.3 % (39.6-49.0); Lymphocytes % 10.9 % (15.3-44.8); MCV 104.6 fL (80-100); MPV 8.5 fL (7.6-11.3); RBC Red Blood Cell Count 2.42 M/uL (4.33-5.43)
[2022-08-27 12:09] LABS: Blood Morphology Comment NOTED (NOT SEEN); White Blood Cell Scan OK (OK)
[2022-08-27 12:10] LABS: Anisocytosis 2+; Macrocytosis 2+; Platelet Estimate ADEQ
--- NOTE | 2022-08-27 14:58 | PN ---
Date of Progress Note: 08/27/2022 Subjective: Seen at the bedside. No new complaints. Review of Systems: No chest pain, nausea, vomiting, diarrhea. All other systems reviewed are negative. Physical Examination: Vital Signs: Reviewed. Head and Neck: Pupils are equal, reactive to light. Intact eye movements. No JVD. No cervical raegan nopathy. Neck: Supple. Thyroid is not enlarged. Lungs: Clear to auscultation bilaterally. No rhonchi, wheezing, or crackles. No accessory muscle u se. Heart: Regular rate and rhythm. No extra sounds. Abdomen: Soft, nontender. Bowel sounds positive. No organomegaly. No masses or hernia. No rigidi ty or rebound. Extremities: No edema, clubbing, cyanosis. Intact pulses. Skin: No rash. Neurologic: Alert and oriented x3. No acute focal deficits appreciated. Investigation: Labs were reviewed. Assessment And Recommendation: 1.Sustained ventricular tachycardia, now resolved with amiodarone. It is monomorphic ventricular ta chycardia. Likely, this is not ischemic. However, troponin was elevated. Await on the Lexiscan nuc lear stress test. 2.Elevated troponin, which could be due to the tachycardia as a demand versus scs-CJ-ewajuafol myoca rdial infarction. I attempted to do a coronary angiogram on him over. He would not stay on the tabl e so await on the stress test. If it is positive for significant ischemia, then we will get Anesthesia to help for the procedure. SR/MODL Voice ID: [id number] Report ID: [id number]
--- NOTE | 2022-08-27 18:09 | P.PN ---
Subjective Date of Service: 08/27/22 Chief Complaint: Cardiogenic Shock No acute events overnight. He is alert and oriented x3 this morning. He denies any chest pain or shortness of breath. Review of Systems 10-point ROS is otherwise unremarkable Physical Examination - Vital Signs Temperature: 96.3 F Blood Pressure: 111/67 Pulse: 73 Respirations: 16 Pulse Ox (%): 95 Assessment And Plan - Plan - Physical Exam General: Alert, In no apparent distress, Oriented x2 to person and place HEENT: Atraumatic, PERRLA, Mucous membr. moist/pink, EOMI, Sclerae nonicteric Neck: Supple, JVD not distended Respiratory: Clear to auscultation bilaterally, Normal air movement Cardiovascular: No edema, Regular rate/rhythm, Normal S1 S2, No gallops, No rubs, No murmurs Gastrointestinal: Normal bowel sounds, Soft and benign, Non-distended Musculoskeletal: No clubbing Integumentary: No rashes Neurological: Normal speech, Cranial nerves 3-12 intact, Normal affect # Cardiogenic Shock secondary to Acute on Chronic Systolic Congestive Heart Failure (LVEF 34 %) Exacerbation # Type II Non-ST Segment Elevation Myocardial Infarction secondary to above # Sustained Ventricular Tachycardia s/p DCCV (08/23) - resolved # Coronary Artery Disease # Elevated LFTs suspect Congestive Hepatopathy vs Amiodarone Toxicity # Moderate Mitral Regurgitation - Consult Cardiology and Dr. Baldwin following - recommendations appreciated - Unable to complete [facility] yesterday due to significant pelvic pain - Hip x-rays without evidence of fracture - Per Dr. Baldwin, tentative plan for [facility] today - Diuresis per Cardiology - Continue amiodarone per Cardiology - Liver US = "1. Hepatic steatosis with trace ascites. 2. Cholelithiasis without sonographic evidence of acute cholecystitis." - Transthoracic echocardiogram = "moderately depressed left ventricular ejection fraction 30-35%. moderate global hypokinesis. moderate mitral regurgitation with mitral annular calcification. mild aortic insufficiency/ mild tricuspid regurgitation." - Daily weights - Strict I/O # Chronic Kidney Disease Stage III # S/P Right Nephrectomy # Anemia of Chronic Kidney Disease - Creatinine = 1.15 (near baseline) - Diuretics as mentioned above - Monitor creatinine and urine output - If worsening, obtain renal ultrasound - Renally dose medications # Type II Diabetes Mellitus - Glucose well-controlled - Correction sale insulin Hubert El M.D.
[2022-08-28] MEDS ORDERED: FENTANYL CITR 100 MCG/2 ML IV ONE ×2 (02:29→06:43)
[2022-08-28 05:40] LABS: MPV 8.1 fL (7.6-11.3)
[2022-08-28] MEDS: ENSURE HIGH PROTEIN 237 ML CAN PO SCH ×3 (07:30→16:30)
[2022-08-28] MEDS: INSULIN -REGULAR HUMAN 50 UNIT/0.5 ML ML SQ SCH ×4 (07:30→20:37)
[2022-08-28] MEDS ORDERED: REGADENOSON 0.4 MG/5 ML SYR IV ONE (07:48)
[2022-08-28] MEDS ORDERED: MIDAZOLAM HCL 2 MG/2 ML INJ IV ONE ×2 (10:04→10:08)
--- NOTE | 2022-08-28 10:46 | P.PN ---
Subjective Date of Service: 08/28/22 Chief Complaint: Cardiogenic Shock No acute events overnight. He reports chronic lower back pain, near its baseline. He denies any chest pain, palpitations, or shortness of breath. Lexiscan unable to be performed yesterday due to back pain. Spoke with Dr. Davidson. He plans to try again today with midazolam x 1 prior to the procedure. Review of Systems 10-point ROS is otherwise unremarkable Musculoskeletal: Back Pain (chronic, lumbar) Physical Examination - Vital Signs Temperature: 96.9 F Blood Pressure: 123/68 Pulse: 75 Respirations: 18 Pulse Ox (%): 96 Assessment And Plan - Plan - Physical Exam General: Alert, In no apparent distress, Oriented x3 HEENT: Atraumatic, PERRLA, Mucous membr. moist/pink, EOMI, Sclerae nonicteric Neck: Supple, JVD not distended Respiratory: Clear to auscultation bilaterally, Normal air movement Cardiovascular: No edema, Regular rate/rhythm, Normal S1 S2, No gallops, No rubs, No murmurs Gastrointestinal: Normal bowel sounds, Soft and benign, Non-distended Musculoskeletal: No clubbing Integumentary: No rashes Neurological: Normal speech, Cranial nerves 3-12 intact, Normal affect # Cardiogenic Shock secondary to Acute on Chronic Systolic Congestive Heart Failure (LVEF 34 %) Exacerbation (resolved) # Type II Non-ST Segment Elevation Myocardial Infarction secondary to above (improved) # Sustained Ventricular Tachycardia s/p DCCV (08/23) - resolved # Coronary Artery Disease # Elevated LFTs 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 Davidson - recommendations appreciated - Unable to complete [facility] yesterday due to significant pelvic/lumbar back pain - Hip x-rays without evidence of fracture - Per Dr. Davidson, tentative plan for [facility] today with pre-procedural midazolam - Diuresis per Cardiology - Continue amiodarone per Cardiology - Liver US = "1. Hepatic steatosis with trace ascites. 2. Cholelithiasis without sonographic evidence of acute cholecystitis." - Transthoracic echocardiogram = "moderately depressed left ventricular ejection fraction 30-35%. moderate global hypokinesis. moderate mitral regurgitation with mitral annular calcification. mild aortic insufficiency/ mild tricuspid regurgitation." - Daily weights - Strict I/O # Chronic Kidney Disease Stage III # S/P Right Nephrectomy # Anemia of Chronic Kidney Disease - Creatinine = 1.14 (near baseline) - Diuretics as mentioned above - Monitor creatinine and urine output - If worsening, obtain renal ultrasound - Renally dose medications # Type II Diabetes Mellitus - Glucose well-controlled - Correction sale insulin Hubert El M.D.
[2022-08-28] MEDS: AMIODARONE HCL 200 MG TAB PO SCH (10:51)
[2022-08-28] MEDS: HYDROCODONE/APAP 5/325 MG TAB PO PRN ×2 (10:51→17:35)
--- NOTE | 2022-08-28 13:25 | PN ---
Date of Progress Note: 08/28/2022 Subjective: Seen by outside. Continues to have back pain and hips pain. Denies having any chest pa in and could not get the Lexiscan done because of that. No chest pain, shortness of breath, orthopne a, cough. No nausea, vomiting, diarrhea. Has chronic back pain and bilateral hip pain preventing us from doing any workup on him. Review of Systems: No chest pain, shortness of breath, orthopnea, cough, nausea, vomiting, diarrhea. All other systems reviewed and they were negative. Physical Examination: Vital Signs: Reviewed. Head and Neck: Pupils are equal, reactive to light. Intact eye movements. No JVD. No cervical lym phadenopathy. Neck is supple. Thyroid is not enlarged. Lungs: Clear to auscultation bilaterally. No rhonchi, wheezing, or crackles. No accessory muscle u se. Heart: Irregularly irregular. No extra sounds. Abdomen: Soft, nontender. Bowel sounds positive. No organomegaly. No masses or hernia. No rigidi ty or rebound. Extremities: No clubbing or cyanosis. Intact pulses. Skin: No rash. Neurologic: Alert, awake. No acute focal deficits appreciated. Investigations: No blood work was done on him today. Assessment And Recommendations: 1.Non-ST elevation myocardial infarction by elevated troponins. The patient had no further chest pa in; however, he had a significant ventricular tachycardia. Ventricular tachycardia is resolved, but still will need ischemia evaluation. The patient could not sit for the stress test. We will attempt again after good sedation and then we will do a Lexiscan nuclear stress test. 2.Ventricular tachycardia, responded very well to amiodarone. Continue current management. Await i shawandaia workup. /AMINAH Voice ID: [id number] Report ID: [id number]
[2022-08-29] MEDS: HYDROCODONE/APAP 5/325 MG TAB PO PRN ×3 (00:40→20:33)
[2022-08-29 04:57] LABS: MPV 8.4 fL (7.6-11.3)
[2022-08-29 05:07] LABS: Magnesium 1.9 mg/dL (1.8-2.4); Phosphorus 3.1 mg/dL (2.5-4.9)
[2022-08-29] MEDS: INSULIN -REGULAR HUMAN 50 UNIT/0.5 ML ML SQ SCH ×4 (07:30→21:00)
[2022-08-29] MEDS: AMIODARONE HCL 200 MG TAB PO SCH (08:35)
[2022-08-29] MEDS: ENSURE HIGH PROTEIN 237 ML CAN PO SCH ×3 (08:36→16:30)
[2022-08-29] MEDS ORDERED: propofoL 200 MG/20 ML VIAL IV ONE ×2 (12:10→13:40)
[2022-08-29] MEDS ORDERED: NA CHLORIDE 0.9% 500 ML ONE (12:10)
[2022-08-29] MEDS ORDERED: HEPA 1000U/500MLS 2,000 UNIT/1,000 ML BAG IV ONE (12:10)
[2022-08-29] MEDS ORDERED: HEPARIN 10,000 UNIT/10 ML VIAL IV ONE (12:10)
[2022-08-29] MEDS ORDERED: HEPARIN 5000 UNIT/ML 1 ML VIAL ONE (12:10)
[2022-08-29] MEDS ORDERED: VERAPAMIL HCL 10 MG/4 ML VIAL IV ONE (12:10)
[2022-08-29] MEDS ORDERED: NITROGLYCERIN 100 MCG/ML SYR (for cath lab use only) IV ONE (12:11)
[2022-08-29] MEDS ORDERED: NITROGLYCERIN/D5W 25 MG/250 ML BTL IV ONE (12:11)
[2022-08-29] MEDS ORDERED: LIDOCAINE 1% MPF 30 ML VIAL ONE ×2 (12:24→12:36)
[2022-08-29] MEDS ORDERED: LIDOCAINE 1% MPF 5 ML VIAL ONE (12:41)
[2022-08-29] MEDS ORDERED: REGADENOSON 0.4 MG/5 ML SYR IV ONE (13:07)
[2022-08-29] MEDS ORDERED: HEPA 1000U/500MLS 1,000 UNIT/500 ML BAG IV ONE (13:11)
[2022-08-29] MEDS ORDERED: ATROPINE SULF 1 MG/10 ML SYR IV ONE (14:07)
[2022-08-29] MEDS ORDERED: ASPIRIN 325 MG TAB ONE (14:11)
[2022-08-29] MEDS ORDERED: TICAGRELOR 90 MG TABLET PO ONE (14:11)
--- NOTE | 2022-08-29 16:22 | OP ---
Date of Procedure: 08/29/2022 Surgeon: SIN BEAR Procedures Performed: 1.Selective coronary angiogram. 2.Percutaneous coronary intervention of severe mid right coronary artery, used a 3.5 x 12 mm Synergy drug-eluting stent. 3.Balloon angioplasty of severe proximal ostial right coronary artery stent in-stent restenoses. I used a 4.0 x 20 mm NC balloon. 4.Balloon angioplasty of severe in-stent restenosis of the mid right coronary artery stent and so us ed a 4.0 x 20 mm NC balloon. Indication: 1.Sustained ventricular tachycardia. 2.Iiq-RP-hbqbxhknh myocardial infarction. Access: Right femoral artery 6-[place] closed with manual pressure. Complications: None. Bleeding: Less than 20 mL. Description Of Procedure: After risks, benefits, and alternatives were explained, patient agreed to procedure and signed informed consent. Due to agitation, anesthesia was applied and then I used a mi cropuncture kit, fluoroscopy, and ultrasound guidance, and accessed right femoral artery and placed a 6-[place]oldovan [place] sheath. Then, I took a 6-[place] JL4 catheter into the aortic root, engaged the le ft main, took standard views and exchanged for 6-[place] JR4 catheter, engaged the RCA, took standard views and then gave systemic heparin to assure ACT level above 250 and took a 6-[place]ovan 3DRC guide int o the aortic root, engaged the RCA, took short run-through wire, placed in the RCA distally and then I took a 4.0 x 20 mm NC balloon and did balloon angioplasty of the mid RCA in-stent restenosis and th en we dilated the lesion in the mid RCA and then also did balloon angioplasty of the proximal RCA tip nt, severe stenosis and then I took a 3.5 x 12 mm Synergy drug-eluting stent to the mid RCA stenosis, overlapped with the stent that he had and the overlapped area was also dilated using 4.0 x 12 x 20 m m NC balloon. Then, final result was satisfactory. I removed the guide and the sheath and manual pr essure was used for hemostasis. Findings: 1.Left main: Large and normal. 2.LAD: Ostial 80% and then there is a stent after that. It is patent all the way to the mid where there is an area of clear under expansion of that stent with 80% restenosis and normal irregularities . Diagonal branches are with mild diffuse 20% to 30% stenosis. 3.Left circumflex: It is moderate-size vessel, codominant with diffuse 20% to 30% stenosis. 4.RCA: It is a dominant circulation with proximal stent 90% ISR, status post balloon angioplasty as above and then in the mid section, there was a focal 90% stenosis status post PCI. I used 3.5 x 12 mm Synergy drug-eluting stent and then in the distal stent, there is 80% ISR, status post balloon ang ioplasty as above and then the PLV and PDA, both have diffuse 50% to 60% stenosis. Conclusion: Severe multivessel coronary artery disease, status post successful PCI and balloon angio plasty of the RCA disease. Recommendations: Staged balloon angioplasty of the ISR with shock wave of the LAD. We will plan to take the patient to [place] to do that and will also do the proximal LAD at the same time and then al so re-touch the RCA and a proximal stent ISR with shock wave as well. Meanwhile, start him on Brilin ta and aspirin high-dose statin, and I will follow the patient with you. /AMINAH Voice ID: [id number] Report ID: [id number]
--- NOTE | 2022-08-29 16:55 | P.PN ---
Subjective Date of Service: 08/29/22 Chief Complaint: Cardiogenic Shock No acute events overnight. He reports generalized pain, worse in his back. Plan for [facility] today with. Dr. Baldwin ~15:30. Review of Systems 10-point ROS is otherwise unremarkable Musculoskeletal: Back Pain Physical Examination - Vital Signs Temperature: 98.5 F Blood Pressure: 110/67 Pulse: 73 Respirations: 18 Pulse Ox (%): 93 Assessment And Plan - Plan - Physical Exam General: Alert, In no apparent distress, Oriented x3 HEENT: Atraumatic, PERRLA, Mucous membr. moist/pink, EOMI, Sclerae nonicteric Neck: Supple, JVD not distended Respiratory: Clear to auscultation bilaterally, Normal air movement Cardiovascular: No edema, Regular rate/rhythm, Normal S1 S2, No gallops, No rubs, No murmurs Gastrointestinal: Normal bowel sounds, Soft and benign, Non-distended Musculoskeletal: No clubbing Integumentary: No rashes Neurological: Normal speech, Cranial nerves 3-12 intact, Normal affect # Cardiogenic Shock secondary to Acute on Chronic Systolic Congestive Heart Failure (LVEF 34 %) Exacerbation (resolved) # Type II Non-ST Segment Elevation Myocardial Infarction secondary to above (improved) # Sustained Ventricular Tachycardia s/p DCCV (08/23) - resolved # Coronary Artery Disease # Elevated LFTs 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 Davidson - recommendations appreciated - Unable to complete [facility] yesterday due to significant pelvic/lumbar back pain - Hip x-rays without evidence of fracture - Per Dr. Baldwin, plan for [facility] today under general anesthesia ~15:30 - Diuresis per Cardiology - Continue amiodarone per Cardiology - Liver US = "1. Hepatic steatosis with trace ascites. 2. Cholelithiasis without sonographic evidence of acute cholecystitis." - Transthoracic echocardiogram = "moderately depressed left ventricular ejection fraction 30-35%. moderate global hypokinesis. moderate mitral regurgitation with mitral annular calcification. mild aortic insufficiency/ mild tricuspid regurgitation." - Daily weights - Strict I/O # Chronic Kidney Disease Stage III # S/P Right Nephrectomy # Anemia of Chronic Kidney Disease - Creatinine = 0.99 (near baseline) - Diuretics as mentioned above - Monitor creatinine and urine output - If worsening, obtain renal ultrasound - Renally dose medications # Type II Diabetes Mellitus - Glucose well-controlled - Correction sale insulin Hubert El M.D.
[2022-08-29] MEDS ORDERED: FENTANYL CITR 100 MCG/2 ML ONE (18:05)
[2022-08-29] MEDS: TICAGRELOR 90 MG TABLET PO SCH (20:33)
[2022-08-30] MEDS: HYDROCODONE/APAP 5/325 MG TAB PO PRN ×3 (02:49→18:26)
[2022-08-30] MEDS: ENSURE HIGH PROTEIN 237 ML CAN PO SCH ×3 (07:30→16:30)
[2022-08-30] MEDS: INSULIN -REGULAR HUMAN 50 UNIT/0.5 ML ML SQ SCH ×4 (07:30→20:36)
[2022-08-30 07:50] LABS: MPV 8.2 fL (7.6-11.3)
[2022-08-30 07:55] LABS: Magnesium 1.8 mg/dL (1.8-2.4); Phosphorus 2.5 mg/dL (2.5-4.9); Potassium 3.8 mmol/L (3.5-5.1)
[2022-08-30] MEDS: ASPIRIN EC 81 MG TAB PO SCH (08:11)
[2022-08-30] MEDS: TICAGRELOR 90 MG TABLET PO SCH ×2 (08:11→21:06)
[2022-08-30] MEDS: AMIODARONE HCL 200 MG TAB PO SCH (08:11)
[2022-08-30 09:13] LABS: Absolute Lymphocytes (CBC) 0.7 K/uL (0.7-4.9); Hematocrit 27.8 % (39.6-49.0); Lymphocytes % 8.5 % (15.3-44.8); MCV 107.3 fL (80-100); RBC Red Blood Cell Count 2.59 M/uL (4.33-5.43)
--- NOTE | 2022-08-30 10:21 | P.PN ---
Subjective Date of Service: 08/30/22 Chief Complaint: Severe coronary artery disease Patient does not communicate Review of Systems is unable to be obtained Physical Examination - Vital Signs Temperature: 97.8 F Blood Pressure: 99/64 Pulse: 91 Respirations: 18 Pulse Ox (%): 95 - Physical Exam General: Unresponsive Neck: Supple Respiratory: Clear to auscultation bilaterally Gastrointestinal: Normal bowel sounds, Soft and benign Assessment And Plan - Current Problems (Diagnosis) (1) Coronary artery disease Current Visit: Yes Status: Chronic Plan: Patient has severe coronary artery disease/recent cardiac cath stated below and was to transfer him to [place]/admitted with a non-STEMI/history of V. tach responded well to amiodarone it is post cardiac cath recommendations below Severe multivessel coronary artery disease, status post successful PCI and balloon angioplasty of the RCA disease. Recommendations: Staged balloon angioplasty of the ISR with shock wave of the LAD. We will plan to take the patient to [place] to do that and will also do the proximal LAD at the same time and then also re-touch the RCA and a proximal stent ISR with shock wave as well. Meanwhile, start him on Brilinta and aspirin high-dose statin, and I will follow the patient with you. Labs chemistries all reviewed vital signs are stable echocardiogram shows depressed ejection fraction Qualifiers: Coronary Disease-Associated Artery/Lesion type: [place] artery [place] vs. transplanted heart: [place] heart Associated angina: without angina Qualified Code(s): I25.10 - Atherosclerotic heart disease of [place] coronary artery without angina pectoris
[2022-08-30] MEDS ORDERED: POTASSIUM 25 MEQ EFFERV TAB PO ONE (12:00)
[2022-08-31] MEDS: HYDROCODONE/APAP 5/325 MG TAB PO PRN ×3 (02:12→19:31)
[2022-08-31] MEDS: INSULIN -REGULAR HUMAN 50 UNIT/0.5 ML ML SQ SCH ×4 (07:30→19:38)
[2022-08-31] MEDS: ASPIRIN EC 81 MG TAB PO SCH (07:38)
[2022-08-31] MEDS: TICAGRELOR 90 MG TABLET PO SCH ×2 (07:38→21:07)
[2022-08-31] MEDS: AMIODARONE HCL 200 MG TAB PO SCH (07:38)
[2022-08-31] MEDS: ENSURE HIGH PROTEIN 237 ML CAN PO SCH ×3 (07:39→16:17)
[2022-08-31 07:51] LABS: MPV 7.8 fL (7.6-11.3)
[2022-08-31 08:07] LABS: Magnesium 1.9 mg/dL (1.8-2.4); Phosphorus 2.1 mg/dL (2.5-4.9)
--- NOTE | 2022-08-31 11:03 | P.PN ---
Subjective Date of Service: 08/31/22 Chief Complaint: Severe coronary artery disease Patient is doing much better today he is less agitated no complaints no shortness of breath or chest pain Review of Systems General: Weakness Physical Examination - Vital Signs Temperature: 97.0 F Blood Pressure: 101/63 Pulse: 100 Respirations: 18 Pulse Ox (%): 94 - Physical Exam General: Alert, In no apparent distress, Oriented x3 Respiratory: Clear to auscultation bilaterally Cardiovascular: No edema, Regular rate/rhythm Assessment And Plan - Current Problems (Diagnosis) (1) Coronary artery disease Current Visit: Yes Status: Chronic Plan: Patient has severe coronary artery disease condition as per resident to transfer him to a tertiary care facility for further interventional procedures vital signs stable chemistries reviewed needs physical therapy ambulate vital signs are stable no further arrhythmias Qualifiers: Coronary Disease-Associated Artery/Lesion type: [place] artery [place] vs. transplanted heart: [place] heart Associated angina: without angina Qualified Code(s): I25.10 - Atherosclerotic heart disease of [place] coronary artery without angina pectoris
--- NOTE | 2022-08-31 16:31 | PN ---
Date of Progress Note: 08/31/2022 Mr. Sarmiento just had a heart catheterization by Dr. Baldwin. He had no complaint today. His examinati on was normal. His coronary findings were consistent with severe coronary artery disease. Dr. Luke calderon is planning to send him to [place] for interventions in the near future. He is on amiodarone, Bril inta, aspirin, and insulin. His last vital signs were perfectly normal, O2 saturation is 98% on room air. Laboratory evaluation within normal limit. He is in sinus rhythm. We will await his transfer order by Dr. Baldwin. Continue present regimen. HARSHAD/AMINAH Voice ID: [id number] Report ID: [id number]
[2022-09-01] MEDS: HYDROCODONE/APAP 5/325 MG TAB PO PRN ×4 (01:32→21:08)
[2022-09-01 04:25] LABS: MPV 7.9 fL (7.6-11.3)
[2022-09-01] MEDS: INSULIN -REGULAR HUMAN 50 UNIT/0.5 ML ML SQ SCH ×4 (07:24→22:35)
[2022-09-01] MEDS: ENSURE HIGH PROTEIN 237 ML CAN PO SCH ×3 (07:29→15:53)
[2022-09-01] MEDS: TICAGRELOR 90 MG TABLET PO SCH ×2 (07:30→21:00)
[2022-09-01] MEDS: ASPIRIN EC 81 MG TAB PO SCH (07:30)
[2022-09-01] MEDS: AMIODARONE HCL 200 MG TAB PO SCH (07:30)
--- NOTE | 2022-09-01 08:46 | P.PN ---
Date of Service: 09/01/22 Subjective Pt doing well; pt to have follow-up with Cardiology for additional intervention. s/p cardiac cath with severe CAD(08/29) Physical Examination - Physical Exam General: In no apparent distress, Oriented x3; Respiratory: Clear to auscultation bilaterally, Normal air movement Cardiovascular: Regular rate and rhythm Gastrointestinal: Normal bowel sounds, No tenderness Musculoskeletal: No tenderness Neurological: No focal deficits; generalized weakness Assessment and Plan - Problems (Diagnosis) (1) Cardiogenic shock; non-STEMI Current Visit: Yes Status: Acute (2) Ventricular tachycardia status post cardioversion Current Visit: Yes Status: Acute Hypotension type: other hypotension type Qualified Code(s): I95.89 - Other hypotension (3) CHF (congestive heart failure) Current Visit: Yes Status: Chronic Heart failure type: systolic Heart failure chronicity: acute on chronic Qualified Code(s): I50.23 - Acute on chronic systolic (congestive) heart failure (4) Chronic back pain Current Visit: Yes Status: Chronic Back pain location: low back pain Back pain laterality: bilateral Sciatica presence: with sciatica Sciatica laterality: bilateral sciatica Qualified Code(s): M54.42 - Lumbago with sciatica, left side; M54.41 - Lumbago with sciatica, right side; G89.29 - Other chronic pain (5) Chronic kidney disease, stage 3 Current Visit: Yes Status: Chronic Chronic kidney disease stage 3 subtype: stage 3a (GFR 45-59) Qualified Code(s): N18.31 - Chronic kidney disease, stage 3a (6) History of coronary artery disease Current Visit: Yes Status: Chronic Coronary Disease-Associated Artery/Lesion type: [place] artery [place] vs. transplanted heart: [place] heart Associated angina: without angina Qualified Code(s): I25.10 - Atherosclerotic heart disease of [place] coronary artery without angina pectoris (7) Diabetes mellitus type 2, insulin dependent Current Visit: Yes Status: Chronic (8) Anemia Current Visit: Yes Status: Acute Anemia type: unspecified type Qualified Code(s): D64.9 - Anemia, unspecified - Plan Continue with plan of care as mentioned below: -Change to oral amiodarone -Continue heparin drip -Appreciate cardiology input; possible transfer to tertiary care facility for further intervention -Echo reviewed -Strict blood pressure and blood sugar control -Replete electrolytes as needed -DNAR
--- NOTE | 2022-09-01 19:43 | PN ---
Date of Progress Note: 09/01/2022 Subjective: Seen by bedside. No new complaints. Review of Systems: No chest pain, shortness of breath, orthopnea, or cough. No nausea, vomiting, diarrhea. No abdomina l pain. No dysuria, polyuria, or urinary urgency. All other systems reviewed and they were negative except for what mentioned in HPI. Physical Examination: Vital Signs: Reviewed. Head and Neck: Pupils are equal, reactive to light. Intact eye movements. No JVD. No cervical lym phadenopathy. Neck is supple. Thyroid is not enlarged. Lungs: Clear to auscultation bilaterally. No rhonchi, wheezing, or crackles. No accessory muscle u se. Heart: Irregular. No extra sounds. Abdomen: Soft, nontender. Bowel sounds positive. No organomegaly. No masses or hernia. No rigidi ty or rebound. Extremities: No clubbing or cyanosis. Intact pulses. Skin: No rash. Neurologic: Alert, awake. No acute focal deficits appreciated. Investigations: Labs were reviewed. His latest BUN and creatinine were 13/76. Assessment And Recommendations: 1.Ventricular tachycardia, likely ischemia induced as the patient has significant coronary artery di sease, status post percutaneous coronary intervention of his RCA. I will continue with amiodarone fo r now and continue Brilinta and aspirin. 2.Coronary artery disease, severe with non-ST elevation myocardial infarction, status post successfu l percutaneous coronary intervention of the RCA and has still residual LAD stenosis. Continue Brilinta and aspirin. Plan for coronary angiogram tomorrow and percutaneous coronary interv ention of the ostial LAD. SR/MODL Voice ID: [id number] Report ID: [id number]
[2022-09-02] MEDS: HYDROCODONE/APAP 5/325 MG TAB PO PRN ×2 (03:51→20:53)
[2022-09-02] MEDS: INSULIN -REGULAR HUMAN 50 UNIT/0.5 ML ML SQ SCH ×4 (07:30→20:53)
[2022-09-02] MEDS: ENSURE HIGH PROTEIN 237 ML CAN PO SCH ×3 (07:30→16:30)
[2022-09-02] MEDS: TICAGRELOR 90 MG TABLET PO SCH ×2 (08:48→20:53)
[2022-09-02] MEDS: AMIODARONE HCL 200 MG TAB PO SCH (08:48)
[2022-09-02] MEDS: ASPIRIN EC 81 MG TAB PO SCH (08:48)
[2022-09-02 10:00] LABS: Absolute Lymphocytes (CBC) 0.8 K/uL (0.7-4.9); Lymphocytes % 11.9 % (15.3-44.8); MCV 106.9 fL (80-100); MPV 7.5 fL (7.6-11.3); RBC Red Blood Cell Count 2.89 M/uL (4.33-5.43)
[2022-09-02] MEDS ORDERED: HEPA 1000U/500MLS 2,000 UNIT/1,000 ML BAG IV ONE (11:42)
[2022-09-02] MEDS ORDERED: LIDOCAINE 1% MPF 30 ML VIAL ONE (11:42)
[2022-09-02] MEDS ORDERED: ATROPINE SULF 1 MG/10 ML SYR IV ONE (13:14)
[2022-09-02] MEDS ORDERED: HEPARIN 10,000 UNIT/10 ML VIAL IV ONE (13:14)
[2022-09-02] MEDS ORDERED: LIDOCAINE 1% MPF 5 ML VIAL ONE (13:15)
[2022-09-02] MEDS ORDERED: propofoL 200 MG/20 ML VIAL IV ONE (13:16)
[2022-09-02] MEDS ORDERED: NA CHLORIDE 0.9% 500 ML ONE (13:30)
[2022-09-02] MEDS ORDERED: EPINEPHrine 1 MG/10 ML SYR ONE (14:37)
[2022-09-02] MEDS ORDERED: METOPROLOL TARTRATE 5 MG/5 ML INJ IV ONE (14:41)
--- NOTE | 2022-09-02 16:18 | OP ---
Date of Procedure: 09/02/2022 Surgeon: SIN BEAR Procedures Performed: 1.Selective coronary angiogram. 2.PCI of severe ostial LAD stenosis, used 3.5 x 12 mm Synergy drug-eluting stent. 3.Balloon angioplasty of severe mid LAD in-stent restenosis, used 3.5 x 50 mm NC balloon. Complications: None. Bleeding: Less than 20 mL. Access: Left femoral artery 6-Finnish closed with 6-Finnish Angio-Seal. Description Of Procedure: After risks, benefits, alternatives were explained, the patient agreed to the procedure and signed informed consent. The patient was brought into the cardiac catheterization laboratory, prepped and draped in the usual sterile fashion. Then, I accessed the left femoral arter y using micropuncture kit, ultrasound guidance and fluoroscopy and placed a 6-Finnish [place] sheath and took a 6-Finnish EBU3.5 guide into the aortic root, engaged left main and took a short Run-Through wire into the left main and the LAD. Took a 3.5 x 50 mm NC balloon and did balloon angioplasty of t he mid LAD in-stent restenosis with good expansion and then same balloon was used to pre dilate the o stial lesion. Heparin was given throughout the procedure to assure ACT level above 250. Then, I too k a 3.5 x 12 mm Synergy drug-eluting stent, deployed at the ostium of the LAD and the overlap was dil ated. Excellent results. He had a brief slow flow in the whole system; however, I re-wired immediat alia and restored a CHARLY-3 flow after that. Then after that, I removed the wires and took angiogram, was satisfactory and removed the guide and the sheath and 6-Finnish Angio-Seal was used for closure wi th good hemostasis. Findings: 1.Left main; large and normal. 2.LAD; ostium 80% and then there was a long stent with multiple areas of in-stent restenosis ranging between 70% to 80%, status post PCI of the ostium of the LAD and balloon angioplasty of the LAD sten t. 3.Left circumflex is with diffuse 20% to 30% stenosis. 4.LVEDP slightly elevated at 50 mmHg. Plan: Brilinta, aspirin, and high-dose statin. The patient can be released within next 24 hours if he appears to be doing well. SR/MODL Voice ID: [id number] Report ID: [id number]
--- NOTE | 2022-09-02 17:01 | PN ---
Date of Progress Note: 09/02/2022 Subjective: Seen by bedside. Doing clinically well. No chest pain. Review of Systems: No chest pain, shortness of breath, orthopnea or cough. No nausea, vomiting, or diarrhea. All other systems reviewed and they were negative. Physical Examination: Vital Signs: Reviewed. Head and Neck: Pupils are equal, reactive to light. Intact eye movements. No JVD. No cervical raegan nopathy. Neck is supple. Thyroid is not enlarged. Lungs: Clear to auscultation bilaterally. No rhonchi, wheezing, or crackles. No accessory muscle u se. Heart: Regular rate and rhythm. No extra sounds. Abdomen: Soft, nontender. Bowel sounds positive. No organomegaly. No masses or hernia. No rigidi ty or rebound. Extremities: No edema, clubbing, or cyanosis. Intact pulses. Skin: No rashes. Neurologic: Alert, awake, with confusion. No focal deficits appreciated. Investigations: Labs reviewed. Assessment And Recommendations: 1.Non-ST elevation myocardial infarction, known to have significant coronary artery disease, status post percutaneous coronary intervention of his right coronary artery and plan for percutaneous gee ry intervention of the left anterior descending today. Continue Brilinta and aspirin and keep n.p.o. for percutaneous coronary intervention of the ostial left anterior descending today. 2.Severe systolic heart failure with the multivessel disease, status post revascularization of the r ight coronary artery. Continue Brilinta and aspirin and we will plan for percutaneous coronary inter vention of the left anterior descending. 3.Sustained ventricular tachycardia. This is resolved. Continue amiodarone and revascularization a s planned. SR/MODL Voice ID: [id number] Report ID: [id number]
[2022-09-03] MEDS: HYDROCODONE/APAP 5/325 MG TAB PO PRN ×2 (03:32→21:09)
[2022-09-03] MEDS: ENSURE HIGH PROTEIN 237 ML CAN PO SCH ×3 (07:30→16:30)
[2022-09-03] MEDS: INSULIN -REGULAR HUMAN 50 UNIT/0.5 ML ML SQ SCH ×4 (07:30→21:10)
[2022-09-03] MEDS: TICAGRELOR 90 MG TABLET PO SCH ×2 (08:38→20:21)
[2022-09-03] MEDS: AMIODARONE HCL 200 MG TAB PO SCH (08:38)
[2022-09-03] MEDS: ASPIRIN EC 81 MG TAB PO SCH (08:38)
[2022-09-03 09:00] LABS: Magnesium 1.8 mg/dL (1.8-2.4); Phosphorus 2.3 mg/dL (2.5-4.9); Potassium 3.6 mmol/L (3.5-5.1)
--- NOTE | 2022-09-03 14:46 | PN ---
Date of Progress Note: 09/03/2022 Subjective: Seen by bedside. No new complaints. Review of Systems: No chest pain, shortness of breath, orthopnea, cough. No nausea, vomiting, diarrhea. All other syst ems reviewed and they were negative. Physical Examination: Vital Signs: Reviewed. Head and Neck: Pupils are equal, reactive to light. Intact eye movements. No JVD. No cervical lym phadenopathy. Neck is supple. Thyroid is not enlarged. Lungs: Clear to auscultation bilaterally. No rhonchi, wheezing, or crackles. No accessory muscle u se. Heart: Irregular. No extra sounds. Abdomen: Soft, nontender. Bowel sounds positive. No organomegaly. No masses or hernia. No rigidi ty or rebound. Extremities: No clubbing or cyanosis. Intact pulses. Skin: No rash. Neurologic: Alert, awake. No acute focal deficits appreciated. Investigations: BUN is 10, creatinine 0.87, and hemoglobin is 10.3. Assessment And Recommendations: 1.Non-ST elevation myocardial infarction, status post revascularization. He did well. From Cardiol ogy standpoint, the patient can be released. Continue aspirin and Brilinta and high dose statin, Lipitor 40 mg at bedtime. 2.Atrial fibrillation, appears to be controlled now. Continue current treatment. On amiodarone. T he patient is not a candidate for anticoagulation. He is already on aspirin and Brilinta. 3.Systolic heart failure. After revascularization, we will plan to re-evaluate cardiac function in 4-6 weeks. The patient is unable to take beta-raven due to the low blood pressure. SR/MODL Voice ID: [id number] Report ID: [id number]
[2022-09-04] MEDS: HYDROCODONE/APAP 5/325 MG TAB PO PRN ×3 (03:10→21:59)
[2022-09-04] MEDS: ENSURE HIGH PROTEIN 237 ML CAN PO SCH ×3 (07:30→16:30)
[2022-09-04] MEDS: INSULIN -REGULAR HUMAN 50 UNIT/0.5 ML ML SQ SCH ×4 (07:30→22:00)
[2022-09-04] MEDS: TICAGRELOR 90 MG TABLET PO SCH ×2 (09:53→21:56)
[2022-09-04] MEDS: ASPIRIN EC 81 MG TAB PO SCH (09:54)
[2022-09-04] MEDS: AMIODARONE HCL 200 MG TAB PO SCH (09:54)
--- NOTE | 2022-09-04 10:06 | P.PN ---
Date of Service: 09/02/22 Subjective Patient had cardiac catheterization. Patient has stent placed in the LAD; coronary angiogram revealed multiple occlusions-ostium 80% and then there was a long stent with multiple areas of in-stent restenosis ranging between 70% to 80%, status post PCI of the ostium of the LAD and balloon angioplasty of the LAD stent. Plan to arrange for discharge to [facility] Physical Examination - Physical Exam General: In no apparent distress, Oriented x3; Respiratory: Clear to auscultation bilaterally, Normal air movement Cardiovascular: Regular rate and rhythm Gastrointestinal: Normal bowel sounds, No tenderness Musculoskeletal: No tenderness Neurological: No focal deficits; generalized weakness Assessment and Plan - Problems (Diagnosis) (1) Cardiogenic shock; non-STEMI Current Visit: Yes Status: Acute (2) Ventricular tachycardia status post cardioversion Current Visit: Yes Status: Acute Hypotension type: other hypotension type Qualified Code(s): I95.89 - Other hypotension (3) CHF (congestive heart failure) Current Visit: Yes Status: Chronic Heart failure type: systolic Heart failure chronicity: acute on chronic Qu alified Code(s): I50.23 - Acute on chronic systolic (congestive) heart failure (4) Chronic back pain Current Visit: Yes Status: Chronic Back pain location: low back pain Back pain laterality: bilateral Sciatica presence: with sciatica Sciatica laterality: bilateral sciatica Qualified Code(s): M54.42 - Lumbago with sciatica, left side; M54.41 - Lumbago with sciatica, right side; G89.29 - Other chronic pain (5) Chronic kidney disease, stage 3 Current Visit: Yes Status: Chronic Chronic kidney disease stage 3 subtype: stage 3a (GFR 45-59) Qualified Code(s): N18.31 - Chronic kidney disease, stage 3a (6) History of coronary artery disease Current Visit: Yes Status: Chronic Coronary Disease-Associated Artery/Lesion type: [place] artery [place] vs. transplanted heart: [place] heart Associated angina: without angina Qualified Code(s): I25.10 - Atherosclerotic heart disease of [place] coronary artery without angina pectoris (7) Diabetes mellitus type 2, insulin dependent Current Visit: Yes Status: Chronic (8) Anemia Current Visit: Yes Status: Acute Anemia type: unspecified type Qualified Code(s): D64.9 - Anemia, unspecified - Plan Continue with plan of care as mentioned below: -Continue po amiodarone -Continue heparin drip; change to oral anticoagulation -Appreciate cardiology input; status post stent in the ostium of the LAD with angioplasty of the in-stent stenosis that was found -Echo reviewed -Strict blood pressure and blood sugar control -Replete electrolytes as needed -DNAR -Continue with physical therapy and work on transfer to rehab or [facility] facility
--- NOTE | 2022-09-04 10:08 | P.PN ---
Date of Service: 09/03/22 Subjective Patient is improving. Clinical symptoms continue to improve. Waiting on placement at this time. Cardiology stated that patient can be discharged once we get placement Physical Examination - Physical Exam General: In no apparent distress, Oriented x3; Respiratory: Clear to auscultation bilaterally, Normal air movement Cardiovascular: Regular rate and rhythm Gastrointestinal: Normal bowel sounds, No tenderness Musculoskeletal: No tenderness Neurological: No focal deficits; generalized weakness Assessment and Plan - Problems (Diagnosis) (1) Cardiogenic shock; non-STEMI Current Visit: Yes Status: Acute (2) Ventricular tachycardia status post cardioversion Current Visit: Yes Status: Acute Hypotension type: other hypotension type Qualified Code(s): I95.89 - Other hypotension (3) CHF (congestive heart failure) Current Visit: Yes Status: Chronic Heart failure type: systolic Heart failure chronicity: acute on chronic Qualified Code(s): I50.23 - Acute on chronic systolic (congestive) heart failure (4) Chronic back pain Current Visit: Yes Status: Chronic Back pain location: low back pain Back pain laterality: bilateral Sciatica presence: with sciatica Sciatica laterality: bilateral sciatica Qualified Code(s): M54.42 - Lumbago with sciatica, left side; M54.41 - Lumbago with sciatica, right side; G89.29 - Other chronic pain (5) Chronic kidney disease, stage 3 Current Visit: Yes Status: Chronic Chronic kidney disease stage 3 subtype: stage 3a (GFR 45-59) Qualified Code(s): N18.31 - Chronic kidney disease, stage 3a (6) History of coronary artery disease Current Visit: Yes Status: Chronic Coronary Disease-Associated Artery/Lesion type: [place] artery [place] vs. transplanted heart: [place] heart Associated angina: without angina Qualified Code(s): I25.10 - Atherosclerotic heart disease of [place] coronary artery without angina pectoris (7) Diabetes mellitus type 2, insulin dependent Current Visit: Yes Status: Chronic (8) Anemia Current Visit: Yes Status: Acute Anemia type: unspecified type Qualified Code(s): D64.9 - Anemia, unspecified - Plan Continue with plan of care as mentioned below: -Continue po amiodarone -Continue heparin drip; change to oral anticoagulation -Appreciate cardiology input; status post stent in the ostium of the LAD with angioplasty of the in-stent stenosis that was found(10/18) taking selective -Echo reviewed -Strict blood pressure and blood sugar control -DNAR -Continue with physical therapy and work on transfer to rehab or intermediate facility
--- NOTE | 2022-09-04 10:10 | P.PN ---
Date of Service: 09/04/22 Subjective Patient continues to improve. Waiting for placement at this time. Can also try inpatient rehab apartment standing Physical Examination - Physical Exam General: In no apparent distress, Oriented x3; Respiratory: Clear to auscultation bilaterally, Normal air movement Cardiovascular: Regular rate and rhythm Gastrointestinal: Normal bowel sounds, No tenderness Musculoskeletal: No tenderness Neurological: No focal deficits; generalized weakness Assessment and Plan - Problems (Diagnosis) (1) Cardiogenic shock; non-STEMI Current Visit: Yes Status: Acute (2) Ventricular tachycardia status post cardioversion Current Visit: Yes Status: Acute Hypotension type: other hypotension type Qualified Code(s): I95.89 - Other hypotension (3) CHF (congestive heart failure) Current Visit: Yes Status: Chronic Heart failure type: systolic Heart failure chronicity: acute on chronic Qualified Code(s): I50.23 - Acute on chronic systolic (congestive) heart failure (4) Chronic back pain Current Visit: Yes Status: Chronic Back pain location: low back pain Back pain laterality: bilateral Sciatica presence: with sciatica Sciatica laterality: bilateral sciatica Qualified Code(s): M54.42 - Lumbago with sciatica, left side; M54.41 - Lumbago with sciatica, right side; G89.29 - Other chronic pain (5) Chronic kidney disease, stage 3 Current Visit: Yes Status: Chronic Chronic kidney disease stage 3 subtype: stage 3a (GFR 45-59) Qualified Code(s): N18.31 - Chronic kidney disease, stage 3a (6) History of coronary artery disease Current Visit: Yes Status: Chronic Coronary Disease-Associated Artery/Lesion type: [place] artery [place] vs. transplanted heart: [place] heart Associated angina: without angina Qualified Code(s): I25.10 - Atherosclerotic heart disease of [place] coronary artery without angina pectoris (7) Diabetes mellitus type 2, insulin dependent Current Visit: Yes Status: Chronic (8) Anemia Current Visit: Yes Status: Acute Anemia type: unspecified type Qualified Code(s): D64.9 - Anemia, unspecified - Plan Continue with plan of care as mentioned below: -Continue po amiodarone -Change to oral anticoagulation -Appreciate cardiology input; status post stent in the ostium of the LAD with angioplasty of the in-stent stenosis that was found(09/02) taking selective -Strict blood pressure and blood sugar control -DNAR -Continue with physical therapy and work on transfer to rehab or intermediate facility
--- NOTE | 2022-09-04 21:42 | PN ---
Date of Progress Note: 09/04/2022 Subjective: Seen by bedside. Doing clinically well. Does not have any complaints. Patient status post complete revascularization during this hospital stay. However, Review of Systems: No chest pain, shortness of breath, orthopnea, or cough. No nausea, vomiting, or diarrhea. All othe r systems reviewed and they were negative. Physical Examination: Vital Signs: Temperature is 97.7, pulse is 89, breathing at 18, blood pressure is 100/62, saturating 99% on room air. General: Pleasant elderly male, no distress. Head and Neck: Pupils are equal, reactive to light. Intact eye movements. No JVD. No cervical lym phadenopathy. Neck is supple. Thyroid is not enlarged. Lungs: Clear to auscultation bilaterally. No rhonchi, wheezing, or crackles. No accessory muscle u se. Heart: Regular. No extra sounds. Abdomen: Soft, nontender. Bowel sounds positive. No organomegaly. No masses or hernia. No rigidi ty or rebound. Extremities: No clubbing or cyanosis. Intact pulses. Skin: No rashes. Neurologic: Alert, awake. No acute focal deficits appreciated. Investigations: Labs were reviewed. Assessment And Recommendations: 1.Ventricular tachycardia, likely due to ischemia, status post complete revascularization and curren tly on amiodarone. No further episodes of ventricular tachycardia. Continue current management. 2.Non-ST elevation myocardial infarction, status post complete revascularization. Continue Brilinta, aspirin and statin, and cardiology will sign off and follow up as an outpatient. SR/MODL Voice ID: [id number] Report ID: [id number]
[2022-09-05] MEDS: HYDROCODONE/APAP 5/325 MG TAB PO PRN ×3 (05:56→21:16)
[2022-09-05 06:36] LABS: Absolute Lymphocytes (CBC) 0.8 K/uL (0.7-4.9); Hematocrit 26.9 % (39.6-49.0); Lymphocytes % 11.8 % (15.3-44.8); MPV 7.4 fL (7.6-11.3); RBC Red Blood Cell Count 2.55 M/uL (4.33-5.43)
[2022-09-05 06:40] LABS: MCV 105.6 fL (80-100)
[2022-09-05 06:51] LABS: Magnesium 1.8 mg/dL (1.8-2.4); Potassium 3.7 mmol/L (3.5-5.1)
[2022-09-05 07:43] LABS: Anisocytosis 1+; Blood Morphology Comment NOTED (NOT SEEN); Platelet Estimate ADEQ; White Blood Cell Scan OK (OK)
[2022-09-05 07:44] LABS: Macrocytosis 1+
[2022-09-05] MEDS: INSULIN -REGULAR HUMAN 50 UNIT/0.5 ML ML SQ SCH ×4 (07:59→21:00)
[2022-09-05] MEDS: ASPIRIN EC 81 MG TAB PO SCH (07:59)
[2022-09-05] MEDS: AMIODARONE HCL 200 MG TAB PO SCH (07:59)
[2022-09-05] MEDS: TICAGRELOR 90 MG TABLET PO SCH ×2 (07:59→21:16)
[2022-09-05] MEDS: ENSURE HIGH PROTEIN 237 ML CAN PO SCH ×3 (08:00→16:04)
[2022-09-05] MEDS ORDERED: MAGNESIUM SULFATE 1 gm IVPB 1 GM/100 ML BAG IV ONE (09:00)
[2022-09-05] MEDS ORDERED: POTASSIUM CL SA 10 MEQ TAB PO ONE (09:00)
[2022-09-06] MEDS: HYDROCODONE/APAP 5/325 MG TAB PO PRN ×4 (04:30→23:27)
[2022-09-06] MEDS: ENSURE HIGH PROTEIN 237 ML CAN PO SCH ×3 (07:30→16:18)
[2022-09-06] MEDS: INSULIN -REGULAR HUMAN 50 UNIT/0.5 ML ML SQ SCH ×4 (07:30→21:56)
[2022-09-06] MEDS: TICAGRELOR 90 MG TABLET PO SCH ×2 (08:19→20:36)
[2022-09-06] MEDS: ASPIRIN EC 81 MG TAB PO SCH (08:19)
[2022-09-06] MEDS: AMIODARONE HCL 200 MG TAB PO SCH (08:19)
--- NOTE | 2022-09-06 20:59 | P.PN ---
Date of Service: 09/05/22 Subjective I am not sure really what happened with insurance but patient was approved to go to a halfway facility. Apparently there was no one assign to do his paperwork. He is not able to go to a facility without his paperwork being completed. This will need to be worked out with case management and social services. Medically stable to be discharged to a halfway facility. Unfortunately his social situation is much more difficult and will need to continue working on this prior to him being discharged to a halfway facility. Long-term prognosis poor. He does not really have anyone to look after him. Physical Examination - Physical Exam General: In no apparent distress but really does not interact. He seemed very depressed and doesn't want to talk Respiratory: Clear to auscultation bilaterally, Normal air movement Cardiovascular: Regular rate and rhythm Gastrointestinal: Normal bowel sounds, No tenderness Musculoskeletal: No tenderness Neurological: No focal deficits; generalized weakness Assessment and Plan - Problems (Diagnosis) (1) Cardiogenic shock; non-STEMI Current Visit: Yes Status: Acute (2) Ventricular tachycardia status post cardioversion Current Visit: Yes Status: Acute Hypotension type: other hypotension type Qualified Code(s): I95.89 - Other hypotension (3) CHF (congestive heart failure) Current Visit: Yes Status: Chronic Heart failure type: systolic Heart failure chronicity: acute on chronic Qualified Code(s): I50.23 - Acute on chronic systolic (congestive) heart failure (4) Chronic back pain Current Visit: Yes Status: Chronic Back pain location: low back pain Back pain laterality: bilateral Sciatica presence: with sciatica Sciatica laterality: bilateral sciatica Qualified Code(s): M54.42 - Lumbago with sciatica, left side; M54.41 - Lumbago with sciatica, right side; G89.29 - Other chronic pain (5) Chronic kidney disease, stage 3 Current Visit: Yes Status: Chronic Chronic kidney disease stage 3 subtype: stage 3a (GFR 45-59) Qualified Code( s): N18.31 - Chronic kidney disease, stage 3a (6) History of coronary artery disease Current Visit: Yes Status: Chronic Coronary Disease-Associated Artery/Lesion type: [place] artery [place] vs. transplanted heart: [place] heart Associated angina: without angina Qualified Code(s): I25.10 - Atherosclerotic heart disease of [place] coronary artery without angina pectoris (7) Diabetes mellitus type 2, insulin dependent Current Visit: Yes Status: Chronic (8) Anemia Current Visit: Yes Status: Acute Anemia type: unspecified type Qualified Code(s): D64.9 - Anemia, unspecified - Plan Continue with plan of care as mentioned below: -Continue po amiodarone -Continue oral anticoagulation -Appreciate cardiology input; status post stent in the ostium of the LAD with angioplasty of the in-stent stenosis that was found(09/02) -Strict blood pressure and blood sugar control -DNAR -Continue with physical therapy and work on completing paperwork so we can complete transfer to halfway facility
--- NOTE | 2022-09-06 20:59 | P.PN ---
Date of Service: 09/06/22 Subjective patient doing well medically. Transfer to snf facility once completed 09/05 I am not sure really what happened with insurance but patient was approved to go to a snf facility. Apparently there was no one assign to do his paperwork. He is not able to go to a facility without his paperwork being completed. This will need to be worked out with case management and sr. social media & mobile manager. Medically stable to be discharged to a snf facility. Unfortunately his social situation is much more difficult and will need to continue working on this prior to him being discharged to a snf facility. Long-term prognosis poor. He does not really have anyone to look after him. Physical Examination - Physical Exam General: In no apparent distress but really does not interact. He seemed very depressed and doesn't want to talk Respiratory: Clear to auscultation bilaterally, Normal air movement Cardiovascular: Regular rate and rhythm Gastrointestinal: Normal bowel sounds, No tenderness Musculoskeletal: No tenderness Neurological: No focal deficits; generalized weakness Assessment and Plan - Problems (Diagnosis) (1) Cardiogenic shock; non-STEMI Current Visit: Yes Status: Acute (2) Ventricular tachycardia status post cardioversion Current Visit: Yes Status: Acute Hypotension type: other hypotension type Qualified Code(s): I95.89 - Other hypotension (3) CHF (congestive heart failure) Current Visit: Yes Status: Chronic Heart failure type: systolic Heart failure chronicity: acute on chronic Qualified Code(s): I50.23 - Acute on chronic systolic (congestive) heart failure (4) Chronic back pain Current Visit: Yes Status: Chronic Back pain location: low back pain Back pain laterality: bilateral Sciatica presence: with sciatica Sciatica laterality: bilateral sciatica Qualified Code(s): M54.42 - Lumbago with sciatica, left side; M54.41 - Lumbago with sciatica, right side; G89.29 - Other chronic pain (5) Chronic kidney disease, stage 3 Current Visit: Yes Status: Chronic Chronic kidney disease stage 3 subtype: stage 3a (GFR 45-59) Qualified Code(s): N18.31 - Chronic kidney disease, stage 3a (6) History of coronary artery disease Current Visit: Yes Status: Chronic Coronary Disease-Associated Artery/Lesion type: [place] artery [place] vs. transplanted heart: [place] heart Associated angina: without angina Qualified Code(s): I25.10 - Atherosclerotic heart disease of [place] coronary artery without angina pectoris (7) Diabetes mellitus type 2, insulin dependent Current Visit: Yes Status: Chronic (8) Anemia Current Visit: Yes Status: Acute Anemia type: unspecified type Qualified Code(s): D64.9 - Anemia, unspecified - Plan Continue with plan of care as mentioned below: -Continue po amiodarone -Continue oral anticoagulation -Appreciate cardiology input; status post stent in the ostium of the LAD with angioplasty of the in-stent stenosis that was found(09/02) -Strict blood pressure and blood sugar control -DNAR -Continue with physical therapy and work on completing paperwork so we can complete transfer to snf facility
[2022-09-07] MEDS: HYDROCODONE/APAP 5/325 MG TAB PO PRN ×2 (04:14→16:13)
[2022-09-07 06:21] LABS: Magnesium 1.9 mg/dL (1.8-2.4); Phosphorus 2.2 mg/dL (2.5-4.9)
[2022-09-07] MEDS: ASPIRIN EC 81 MG TAB PO SCH (08:27)
[2022-09-07] MEDS: AMIODARONE HCL 200 MG TAB PO SCH (08:27)
[2022-09-07] MEDS: ENSURE HIGH PROTEIN 237 ML CAN PO SCH ×3 (08:27→16:14)
[2022-09-07] MEDS: POTASS/SODIUM PHOSPHATE 1 PKT POWD.PACK PO SCH ×3 (08:27→10:44)
[2022-09-07] MEDS: TICAGRELOR 90 MG TABLET PO SCH ×2 (08:27→21:16)
[2022-09-07] MEDS: INSULIN -REGULAR HUMAN 50 UNIT/0.5 ML ML SQ SCH ×4 (09:02→21:00)
[2022-09-08] MEDS: HYDROCODONE/APAP 5/325 MG TAB PO PRN ×2 (02:15→06:55)
[2022-09-08 05:57] VITALS: BMI 24.1
[2022-09-08 06:11] LABS: Absolute Lymphocytes (CBC) 0.8 K/uL (0.7-4.9); Hematocrit 28.4 % (39.6-49.0); Lymphocytes % 12.3 % (15.3-44.8); MCV 106.2 fL (80-100); MPV 7.6 fL (7.6-11.3); RBC Red Blood Cell Count 2.67 M/uL (4.33-5.43)
[2022-09-08 06:32] LABS: Albumin 2.3 g/dL (3.4-5.0); Bilirubin Total 1.1 mg/dL (0.2-1.0); Magnesium 1.9 mg/dL (1.8-2.4); Potassium 3.8 mmol/L (3.5-5.1)
[2022-09-08] MEDS ORDERED: POTASS/SODIUM PHOSPHATE 1 PKT POWD.PACK PO SCH (07:00)
[2022-09-08 07:19] LABS: White Blood Cell Scan OK (OK)
[2022-09-08 07:20] LABS: Anisocytosis 1+; Blood Morphology Comment NOTED (NOT SEEN); Macrocytosis 1+; Platelet Estimate ADEQ
[2022-09-08] MEDS: INSULIN -REGULAR HUMAN 50 UNIT/0.5 ML ML SQ SCH ×4 (07:30→21:00)
[2022-09-08] MEDS: ENSURE HIGH PROTEIN 237 ML CAN PO SCH ×3 (07:48→16:49)
[2022-09-08] MEDS: ASPIRIN EC 81 MG TAB PO SCH (07:48)
[2022-09-08] MEDS: AMIODARONE HCL 200 MG TAB PO SCH (08:00)
[2022-09-08] MEDS: TICAGRELOR 90 MG TABLET PO SCH ×2 (08:00→22:05)
[2022-09-08] MEDS ORDERED: POTASSIUM CL SA 10 MEQ TAB PO ONE (09:00)
--- NOTE | 2022-09-08 09:02 | P.PN ---
Date of Service: 09/07/22 Subjective Patient continues to improve. Clinical symptoms are stable. Patient really does not interact well. He seems very depressed and does not engage easily with the nursing staff. Tends to sleep most of the day. He does look like he will decline as he is really not taking care of himself, and he is not even trying to get himself any better. 09/05 I am not sure really what happened with insurance but patient was approved to go to a senior care facility. Apparently there was no one assign to do his paperwork. He is not able to go to a facility without his paperwork being completed. This will need to be worked out with case management and social insurance specialist. Medically stable to be discharged to a senior care facility. Unfortunately his social situation is much more difficult and will need to continue working on this prior to him being discharged to a senior care facility. Long-term prognosis poor. He does not really have anyone to look after him. Physical Examination - Physical Exam General: In no apparent distress but really does not interact. He seemed very depressed and doesn't want to talk Respiratory: Clear to auscultation bilaterally, Normal air movement Cardiovascular: Regular rate and rhythm Gastrointestinal: Normal bowel sounds, No tenderness Musculoskeletal: No tenderness Neurological: No focal deficits; generalized weakness Assessment and Plan - Problems (Diagnosis) (1) Cardiogenic shock; non-STEMI Current Visit: Yes Status: Acute (2) Ventricular tachycardia status post cardioversion Current Visit: Yes Status: Acute Hypotension type: other hypotension type Qualified Code(s): I95.89 - Other hypotension (3) CHF (congestive heart failure) Current Visit: Yes Status: Chronic Heart failure type: systolic Heart failure chronicity: acute on chronic Qualified Code(s): I50.23 - Acute on chronic systolic (congestive) heart failure (4) Chronic back pain Current Visit: Yes Status: Chronic Back pain location: low back pain Back pain laterality: bilateral Sciatica presence: with sciatica Sciatica laterality: bilateral sciatica Qualified Code(s): M54.42 - Lumbago with sciatica, left side; M54.41 - Lumbago with sciatica, right side; G89.29 - Other chronic pain (5) Chronic kidney disease, stage 3 Current Visit: Yes Status: Chronic Chronic kidney disease stage 3 subtype: stage 3a (GFR 45-59) Qualified Code(s): N18.31 - Chronic kidney disease, stage 3a (6) History of coronary artery disease Current Visit: Yes Status: Chronic Coronary Disease-Associated Artery/Lesion type: [place] artery [place] vs. transplanted heart: [place] heart Associated angina: without angina Qualified Code(s): I25.10 - Atherosclerotic heart disease of [place] coronary artery without angina pectoris (7) Diabetes mellitus type 2, insulin dependent Current Visit: Yes Status: Chronic (8) Anemia Current Visit: Yes Status: Acute Anemia type: unspecified type Qualified Code(s): D64.9 - Anemia, unspecified - Plan Continue with plan of care as mentioned below: -Continue po amiodarone -Continue oral anticoagulation -Appreciate cardiology input; status post stent in the ostium of the LAD with angioplasty of the in-stent stenosis that was found(09/02) -Strict blood pressure and blood sugar control -DNAR -Continue with physical therapy and work on completing paperwork so we can complete transfer to senior care facility -Antidepressant
[2022-09-08] MEDS: ESCITALOPRAM 20 MG TAB PO SCH (10:55)
--- NOTE | 2022-09-08 17:33 | P.PN ---
Subjective Date of Service: 09/08/22 Chief Complaint: Severe coronary artery disease No acute events overnight. He reports generalized myalgias, which are chronic. He endorses no additional concerns. Plan is for discharge to SNF once accepted. Review of Systems 10-point ROS is otherwise unremarkable General: Weakness (generalized) Physical Examination - Vital Signs Temperature: 97.3 F Blood Pressure: 102/64 Pulse: 104 Respirations: 20 Pulse Ox (%): 99 Assessment And Plan - Plan - Physical Exam General: Alert, In no apparent distress, Oriented x3 HEENT: Atraumatic, PERRLA, Mucous membr. moist/pink, EOMI, Sclerae nonicteric Neck: Supple, JVD not distended Respiratory: Clear to auscultation bilaterally, Normal air movement Cardiovascular: No edema, Regular rate/rhythm, Normal S1 S2, No gallops, No rubs, No murmurs Gastrointestinal: Normal bowel sounds, Soft and benign, Non-distended Musculoskeletal: No clubbing Integumentary: No rashes Neurological: Normal speech, Cranial nerves 3-12 intact, Normal affect # Cardiogenic Shock secondary to Acute on Chronic Systolic Congestive Heart Failure (LVEF 34 %) Exacerbation (resolved) # Type II Non-ST Segment Elevation Myocardial Infarction secondary to above (improved) # Sustained Ventricular Tachycardia s/p DCCV (08/23) - resolved # Coronary Artery Disease s/p PCI to LAD and RCA # Elevated LFTs 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 Davidson - recommendations appreciated - [facility] (08/29/2022) - MONY to mid-RCA - Balloon angioplasty of proximal ostial RCA in-stent stenosis - Balloon angioplasty of mid-RCA in-stent stenosis - [facility] (09/02/2022) - MONY to ostial LAD - Balloon angioplasty to mid-LAD in-stent steonsis - Diuresis + amiodarone per Cardiology - Liver US = "1. Hepatic steatosis with trace ascites. 2. Cholelithiasis without sonographic evidence of acute cholecystitis." - Transthoracic echocardiogram = "moderately depressed left ventricular ejection fraction 30-35%. moderate global hypokinesis. moderate mitral regurgitation with mitral annular calcification. mild aortic insufficiency/ mild tricuspid regurgitation." - Daily weights - Strict I/O # Chronic Kidney Disease Stage III # S/P Right Nephrectomy # Anemia of Chronic Kidney Disease - Creatinine = near baseline - Diuretics as mentioned above - Monitor creatinine and urine output - If worsening, obtain renal ultrasound - Renally dose medications # Type II Diabetes Mellitus - Glucose well-controlled - Correction scale insulin Medically stable for discharge once accepted to SNF. Hubert El M.D. Discharge Plan: Retirement
[2022-09-09] MEDS: HYDROCODONE/APAP 5/325 MG TAB PO PRN (00:57)
[2022-09-09 04:10] LABS: Potassium 3.9 mmol/L (3.5-5.1)
[2022-09-09 04:47] VITALS: TEMP 97.2
[2022-09-09] MEDS: ENSURE HIGH PROTEIN 237 ML CAN PO SCH ×2 (07:30→11:30)
[2022-09-09] MEDS: INSULIN -REGULAR HUMAN 50 UNIT/0.5 ML ML SQ SCH ×2 (07:30→11:45)
--- NOTE | 2022-09-09 08:43 | P.DS ---
Admission Date: 08/22/22 Discharge Date: 09/09/22 Disposition: TRANSFER TO CARE HOME Comment: [facility] Discharge Condition: GOOD Reason for Admission: Severe coronary artery disease Consultations: 1. Cardiology Procedures: - 08/29/2022: 1. Selective coronary angiogram. 2. Percutaneous coronary intervention of severe mid right coronary artery, used a 3.5 x 12 mm Synergy drug-eluting stent. 3. Balloon angioplasty of severe proximal ostial right coronary artery stent in-stent restenoses. I used a 4.0 x 20 mm NC balloon. 4. Balloon angioplasty of severe in-stent restenosis of the mid right coronary artery stent and so used a 4.0 x 20 mm NC balloon. - 09/02/2022: 1. Selective coronary angiogram. 2. PCI of severe ostial LAD stenosis, used 3.5 x 12 mm Synergy drug-eluting stent. 3. Balloon angioplasty of severe mid LAD in-stent restenosis, used 3.5 x 50 mm NC balloon. Hospital Course: DIAGNOSES: # Cardiogenic Shock secondary to Acute on Chronic Systolic Congestive Heart Failure (LVEF 34 %) Exacerbation (resolved) # Non-ST Segment Elevation Myocardial Infarction secondary to above (improved) # Sustained Ventricular Tachycardia s/p DCCV (08/23) - resolved # Coronary Artery Disease s/p PCI to LAD and RCA # Elevated LFTs suspect Congestive Hepatopathy # Moderate Mitral Regurgitation # Chronic Kidney Disease Stage III # S/P Right Nephrectomy # Anemia of Chronic Kidney Disease # Type II Diabetes Mellitus HOSPITAL COURSE: Mr. Demetrius Sarmiento is an 82 year old male with a past medical history significant for coronary artery disease, chronic kidney disease stage III, and type II diabetes mellitus who was admitted to the [facility] on 08/22/2022 for ventricular tachycardia s/p synchronized cardioversion and cardiogenic shock. He was admitted to the ICU under the Medicine service. Cardiology was consulted and followed him during his stay. He was treated with vasopressor therapy, and shortly after admission, he developed sustained ventricular tachycardia, which required synchronized cardioversion. Post cardioversion, he was started on an amiodarone drip, and he did not experience any recurrent episodes of ventricular tachycardia. Given these episodes of sustained ventricular tachycardia, an ischemic evaluation was completed. On 08/29/2022, he underwent a drug-eluting stent to the mid-right coronary artery, and on 09/02/2022, he underwent a drug- eluting stent to the ostial left anterior descending artery. He did well post- operatively, and physical therapy was consulted to evaluate him. Physical Therapy recommended SNF for physical therapy services. With the assistance of case management, he was accepted to [facility]. Per Cardiology, he has been cleared for discharge with aspirin, atorvastatin, and ticagrelor. He was not started on a beta-raven or ROBBY-inhibitor/ARB due to borderline hypotension. This will be addressed at his outpatient Cardiology follow-up appointments. On 09/09/2022, he was seen on morning rounds and deemed medically stable for discharge to SNF. He was discharged with instructions to schedule follow-up appointments with his PCP and with Cardiology (Dr. Baldwin) in 5-7 days. He was given the opportunity to ask questions and reported no further questions. Furthermore, all questions were answered to the best of my ability. A copy of this discharge summary will be sent to the above providers to facilitate continuity of care. Today, I personally spent 35 minutes on his case, of which greater than 50% of the time was spent in patient education, counseling, and coordination of care as described above. - Physical Exam General: Alert, In no apparent distress, Oriented x3 HEENT: Atraumatic, PERRLA, Mucous membr. moist/pink, EOMI, Sclerae nonicteric Neck: Supple, JVD not distended Respiratory: Clear to auscultation bilaterally, Normal air movement Cardiovascular: No edema, Regular rate/rhythm, Normal S1 S2, No gallops, No rubs, No murmurs Gastrointestinal: Normal bowel sounds, Soft and benign, Non-distended Musculoskeletal: No clubbing Integumentary: No rashes Neurological: Normal speech, Cranial nerves 3-12 intact, Normal affect Vital Signs/Physical Exam: Temp Pulse Resp BP Pulse Ox 97.2 F 96 H 15 96/56 L 96 09/09/22 04:00 09/09/22 04:00 09/09/22 04:00 09/09/22 04:00 09/09/22 04:00 Laboratory Data at Discharge: WBC 6.50 K/uL (4.3-10.9) 09/08/22 05:44 Hgb 9.6 g/dL (13.6-17.9) L 09/08/22 05:44 Hct 28.4 % (39.6-49.0) L 09/08/22 05:44 Plt Count 234 K/uL (152-406) 09/08/22 05:44 PT 14.1 SECONDS (9.5-12.5) H 08/22/22 04:25 INR 1.28 08/22/22 04:25 APTT 21.6 SECONDS (24.3-36.9) L 08/25/22 21:45 Sodium 134 mmol/L (136-145) L 09/09/22 03:23 Potassium 3.9 mmol/L (3.5-5.1) 09/09/22 03:23 BUN 18 mg/dL (7-18) 09/09/22 03:23 Creatinine 0.80 mg/dL (0.55-1.3) 09/09/22 03:23 Glucose 159 mg/dL (74-106) H 09/09/22 03:23 Phosphorus 3.0 mg/dL (2.5-4.9) 09/09/22 03:23 Magnesium 1.9 mg/dL (1.8-2.4) 09/08/22 05:44 Total Bilirubin 1.1 mg/dL (0.2-1.0) H 09/08/22 05:44 AST 17 U/L (15-37) 09/08/22 05:44 ALT 23 U/L (12-78) 09/08/22 05:44 Alkaline Phosphatase 76 U/L (45-117) 09/08/22 05:44 Home Medications: Aspirin Chewable [Aspirin Chewable*] 81 mg PO DAILY 06/01/22 Atorvastatin Calcium [Lipitor] 40 mg PO BEDTIME 06/01/22 Hydrocodone 5/APAP 325 [Mobile 5/325*] 1 tab PO Q6H PRN #12 tab 06/02/22 Amiodarone HCl [Cordarone*] 200 mg PO DAILY #0 tab 09/05/22 Ensure High Protein 273 ml PO AC #0 can 09/05/22 Ticagrelor [Brilinta*] 90 mg PO BID 09/05/22 Escitalopram [Lexapro*] 20 mg PO DAILY tab 09/09/22 Physician Discharge Instructions: -DC IV and DC home -Follow-up with PCP in 1 to 2 weeks -Follow-up with Cardiology in 1 to 2 weeks -Please call Dr. Crenshaw at [phone] if any questions regarding hospital stay -Please call nursing station at [phone] if any nursing or medication questions -Return to the emergency room if symptoms worsen Diet: AHA Activity: Fall precautions Followup: NONE,NONE [Primary Care Provider] - Jim Baldwin MD [ACTIVE - CAN ADMIT] - Time spent managing pt's care (in minutes): 35
[2022-09-09] MEDS ORDERED: POTASSIUM CL SA 10 MEQ TAB PO ONE (09:00)
[2022-09-09] MEDS: ASPIRIN EC 81 MG TAB PO SCH (10:12)
[2022-09-09] MEDS: TICAGRELOR 90 MG TABLET PO SCH (10:13)
[2022-09-09] MEDS: ESCITALOPRAM 20 MG TAB PO SCH (10:13)
[2022-09-09] MEDS: AMIODARONE HCL 200 MG TAB PO SCH (10:13)
[2022-09-09 10:30] VITALS: O2SAT 98
[2022-09-09 14:28] VITALS: BP 96/63
== END 2022-09-09 15:30 | DRG 246 ==
LOC: ER 03:11 → ERHOLD 05:32 → 3RD-ICU 20:20 → 2ND 08-24 14:25
PROVIDERS: ADMIT Hospitalist; ATTEND Internal Medicine
PROC: 5A2204Z Restoration of Cardiac Rhythm, Single (ICD-10-PCS; 2022-08-22)
PROC: 027034Z Dilation of Coronary Artery, One Artery with Drug-eluting Intraluminal Device, Percutaneous Approach (ICD-10-PCS; principal; 2022-08-29)
PROC: 02703ZZ Dilation of Coronary Artery, One Artery, Percutaneous Approach (ICD-10-PCS; 2022-08-29)
PROC: 4A023N7 Measurement of Cardiac Sampling and Pressure, Left Heart, Percutaneous Approach (ICD-10-PCS; 2022-08-29)
PROC: B2111ZZ Fluoroscopy of Multiple Coronary Arteries using Low Osmolar Contrast (ICD-10-PCS; 2022-08-29)
PROC: 027034Z Dilation of Coronary Artery, One Artery with Drug-eluting Intraluminal Device, Percutaneous Approach (ICD-10-PCS; 2022-09-02)
PROC: 02703ZZ Dilation of Coronary Artery, One Artery, Percutaneous Approach (ICD-10-PCS; 2022-09-02)
PROC: 4A023N7 Measurement of Cardiac Sampling and Pressure, Left Heart, Percutaneous Approach (ICD-10-PCS; 2022-09-02)
PROC: B2111ZZ Fluoroscopy of Multiple Coronary Arteries using Low Osmolar Contrast (ICD-10-PCS; 2022-09-02)
DX: I13.0 Hypertensive heart and chronic kidney disease with heart failure and stage 1 through stage 4 chronic kidney disease, or unspecified chronic kidney disease (principal); I21.A1 Myocardial infarction type 2; I50.23 Acute on chronic systolic (congestive) heart failure; R57.0 Cardiogenic shock; I47.20 Ventricular tachycardia, unspecified; N18.31 Chronic kidney disease, stage 3a; E11.22 Type 2 diabetes mellitus with diabetic chronic kidney disease; D63.1 Anemia in chronic kidney disease; E78.5 Hyperlipidemia, unspecified; I48.91 Unspecified atrial fibrillation; I08.3 Combined rheumatic disorders of mitral, aortic and tricuspid valves; K76.0 Fatty (change of) liver, not elsewhere classified; I25.10 Atherosclerotic heart disease of native coronary artery without angina pectoris; I95.89 Other hypotension; G89.29 Other chronic pain; M54.42 Lumbago with sciatica, left side; M54.41 Lumbago with sciatica, right side; I25.2 Old myocardial infarction; R74.8 Abnormal levels of other serum enzymes; R79.89 Other specified abnormal findings of blood chemistry; Z66 Do not resuscitate; Z60.2 Problems related to living alone; Z79.82 Long term (current) use of aspirin; Z79.02 Long term (current) use of antithrombotics/antiplatelets; Z79.899 Other long term (current) drug therapy; Z20.822 Contact with and (suspected) exposure to COVID-19
CPT/HCPCS: 36415; 71045; 71275; 73521; 74175; 76705; 76937; 80048; 80053; 82550; 82553; 82947; 83605; 83735; 83880; 84100; 84145; 84484; 85014; 85018; 85025; 85049; 85347; 85610; 85730; 87811; 92960; 93005; 93306; 93458; 96365; 96366; 96375; 97110; 97112; 97116; 97161; 97530; 99291; 99292; C1725; C1760; C1893; C9600; G0269; J0171; J0282; J1100; J1250; J1644; J1815; J2001; J2250; J2704; J2785; J3010; J3475; J3480; J7030; J7040; J7060; Q9967; U0003